=== PATIENT | male | born 1965 | race Caucasian/White ===

== ENCOUNTER 2016-12-26 17:50 | Inpatient (IN) | payer OTHER ==
[2016-12-26] MEDS ORDERED: NACL 0.9% 1000 ML 2,000 ML IV ONE (18:43)
--- NOTE | 2016-12-26 18:45 | Emergency Department Report ---
ED General Adult HPI - General Chief complaint: Abdominal Pain Stated complaint: GENERAL WEAKNESS Time Seen by Provider: 12/26/16 18:36 Source: patient, EMS (ems notes not available at time of chart dictation), RN notes reviewed Mode of arrival: Stretcher Limitations: Language Barrier, Altered Mental Status, Physical Limitation - History of Present Illness Initial comments: This is a 51-year-old male, the patient is previously known to me, history limited as there is no family members available, the patient is delirious, and is a poor historian. As per triage nurse documentation, [place], EMS indicates no history or family, history, and from other people "squatting", EMS indicates patient has been in bed for the past month, and has had nothing by mouth. Patient does indicate right-sided abdominal pain , however he cannot further A on the nature of this abdominal pain. Patient cannot describe exacerbating or relieving factors, or radiation. No additional information is available at this time. -: unknown Quality: other (as per history of present illness) Consistency: other (as per history of present illness) Improves with: other (as per history of present illness) Associated Symptoms: other (as per history of present illness) - Related Data Home Medications Medication Instructions Recorded Confirmed Last Taken No Known Home Medications [No 12/26/16 12/26/16 Unknown Reported Home Medications] Allergies Allergy/AdvReac Type Severity Reaction Status Date / Time No Known Allergies Allergy Unverified 12/26/16 18:23 ED Review of Systems ROS: Stated complaint: GENERAL WEAKNESS Other details as noted in HPI Comment: Unobtainable due to pts medical conditions ED Past Medical Hx - Past Medical History Hx Diabetes: Yes - Surgical History Additional Surgical History: unknown - Social History Smoking Status: Current Every Day Smoker Substance Use Type: None - Medications Home Medications: Home Medications Medication Instructions Recorded Confirmed Last Taken Type No Known Home Medications [No 12/26/16 12/26/16 Unknown History Reported Home Medications] ED Physical Exam - General Limitations: Language Barrier, Altered Mental Status, Physical Limitation General appearance: lethargic, in distress - Head Head exam: Present: atraumatic, normocephalic - Eye Eye exam: Present: normal appearance, EOMI - ENT ENT exam: Present: normal exam, normal orophraynx, mucous membranes moist, normal external ear exam - Neck Neck exam: Present: normal inspection, full ROM. Absent: tenderness, meningismus - Respiratory Respiratory exam: Present: normal lung sounds bilaterally. Absent: respiratory distress, rhonchi - Cardiovascular Cardiovascular Exam: Present: normal rhythm, tachycardia, normal heart sounds. Absent: systolic murmur, diastolic murmur, rubs, gallop - GI/Abdominal GI/Abdominal exam: Present: soft, tenderness, normal bowel sounds. Absent: distended, guarding, rebound, rigid, pulsatile mass - Rectal Rectal exam: Present: normal inspection - exam: Present: normal inspection - Extremities Exam Extremities exam: Present: normal inspection, normal capillary refill. Absent: calf tenderness - Back Exam Back exam: Present: normal inspection, full ROM. Absent: tenderness, CVA tenderness (R), CVA tenderness (L), muscle spasm, paraspinal tenderness, vertebral tenderness - Neurological Exam Neurological exam: Present: altered, other (patient moves 4 extremities. Answers some questions but not all questions) - Psychiatric Psychiatric exam: Present: anxious - Skin Skin exam: Present: warm, dry, intact, normal color. Absent: rash ED Course Vital Signs 12/26/16 12/26/16 12/26/16 18:16 18:21 18:23 Temperature 98.9 F Pulse Rate 99 H 99 H 100 H Respiratory 17 24 18 Rate Blood Pressure 123/78 Blood Pressure [Left] O2 Sat by Pulse 98 99 100 Oximetry 12/26/16 12/26/16 12/26/16 18:30 18:31 18:41 Temperature 100.3 F H Pulse Rate 100 H 100 H Respiratory 16 17 Rate Blood Pressure Blood Pressure [Left] O2 Sat by Pulse 99 97 Oximetry 12/26/16 12/26/16 12/26/16 18:51 19:01 19:11 Temperature Pulse Rate 99 H 101 H 104 H Respiratory 12 17 19 Rate Blood Pressure 132/80 Blood Pressure [Left] O2 Sat by Pulse 99 99 99 Oximetry 12/26/16 12/26/16 12/26/16 19:21 19:58 20:01 Temperature Pulse Rate 105 H 107 H 106 H Respiratory 13 21 20 Rate Blood Pressure 128/84 128/84 128/84 Blood Pressure [Left] O2 Sat by Pulse 99 Oximetry 12/26/16 12/26/16 12/26/16 20:11 20:15 20:21 Temperature Pulse Rate 105 H 106 H Respiratory 17 18 16 Rate Blood Pressure 128/84 128/84 Blood Pressure [Left] O2 Sat by Pulse 97 Oximetry 12/26/16 12/26/16 12/26/16 20:30 20:41 20:51 Temperature Pulse Rate 107 H 107 H 105 H Respiratory 20 19 16 Rate Blood Pressure 159/80 159/80 159/86 Blood Pressure [Left] O2 Sat by Pulse 100 100 100 Oximetry 12/26/16 12/26/16 12/26/16 21:00 21:11 21:21 Temperature Pulse Rate 104 H 103 H 101 H Respiratory 16 14 17 Rate Blood Pressure 160/76 160/76 160/76 Blood Pressure [Left] O2 Sat by Pulse 100 100 100 Oximetry 12/26/16 12/26/16 12/26/16 21:30 21:41 21:51 Temperature Pulse Rate 102 H 101 H 101 H Respiratory 21 13 15 Rate Blood Pressure 141/67 141/67 131/64 Blood Pressure [Left] O2 Sat by Pulse 100 100 100 Oximetry 12/26/16 12/26/16 12/26/16 22:00 22:11 22:21 Temperature Pulse Rate 105 H 104 H Respiratory 24 16 Rate Blood Pressure 146/65 146/65 152/66 Blood Pressure [Left] O2 Sat by Pulse 100 100 100 Oximetry 12/26/16 12/26/16 12/26/16 22:30 22:41 22:51 Temperature Pulse Rate 104 H 101 H 104 H Respiratory 16 18 17 Rate Blood Pressure 128/73 128/73 140/73 Blood Pressure [Left] O2 Sat by Pulse 99 99 99 Oximetry 12/26/16 12/26/16 12/26/16 23:00 23:11 23:21 Temperature 99.8 F H Pulse Rate 101 H 101 H 106 H Respiratory 20 18 11 L Rate Blood Pressure 141/73 141/73 125/70 Blood Pressure 146/73 [Left] O2 Sat by Pulse 100 100 100 Oximetry 12/26/16 12/26/16 12/26/16 23:30 23:41 23:51 Temperature Pulse Rate 102 H 103 H 100 H Respiratory 19 15 21 Rate Blood Pressure 138/75 138/75 146/73 Blood Pressure [Left] O2 Sat by Pulse 100 100 100 Oximetry 12/27/16 12/27/16 12/27/16 00:00 00:11 00:21 Temperature Pulse Rate 103 H 103 H 105 H Respiratory 13 13 12 Rate Blood Pressure 154/73 154/73 146/68 Blood Pressure [Left] O2 Sat by Pulse 99 98 Oximetry 12/27/16 12/27/16 12/27/16 00:30 00:45 00:46 Temperature 101.3 F H Pulse Rate 106 H 103 H Respiratory 15 20 20 Rate Blood Pressure 155/74 Blood Pressure 150/76 [Left] O2 Sat by Pulse 96 99 Oximetry 12/27/16 12/27/16 01:17 01:45 Temperature 102.2 F H Pulse Rate 106 H Respiratory 20 Rate Blood Pressure 181/86 Blood Pressure [Left] O2 Sat by Pulse 99 Oximetry - Reevaluation(s) Reevaluation #1: 12/26/16 21:57 Dr. Shearer, the hospital physician, accepts the patient to her service. ED Medical Decision Making - Lab Data Result diagrams: 12/28/16 03:49 12/28/16 03:49 Vital Signs 12/26/16 18:23 Temperature 98.9 F Pulse Rate 100 H Respiratory 18 Rate Blood Pressure 123/78 O2 Sat by Pulse 100 Oximetry Lab Results 12/26/16 12/26/16 12/26/16 Range/Units 18:45 18:45 18:45 WBC 12.5 H (4.5-11.0) K/mm3 RBC 3.99 (3.65-5.03) M/mm3 Hgb 10.2 L (11.8-15.2) gm/dl Hct 30.7 L (35.5-45.6) % MCV 77 L (84-94) fl MCH 26 L (28-32) pg MCHC 33 (32-34) % RDW 16.1 H (13.2-15.2) % Plt Count 387 (140-440) K/mm3 Add Manual Diff Complete Total Counted 100 Seg Neuts % (Manual) 82.0 H (40.0-70.0) % Band Neutrophils % 0 % Lymphocytes % (Manual) 13.0 L (13.4-35.0) % Reactive Lymphs % (Man) 0 % Monocytes % (Manual) 3.0 (0.0-7.3) % Eosinophils % (Manual) 0 (0.0-4.3) % Basophils % (Manual) 0 (0.0-1.8) % Metamyelocytes % 2.0 % Myelocytes % 0 % Promyelocytes % 0 % Blast Cells % 0 % Nucleated RBC % Not Reportable Seg Neutrophils # Man 10.3 H (1.8-7.7) K/mm3 Band Neutrophils # 0.0 K/mm3 Lymphocytes # (Manual) 1.6 (1.2-5.4) K/mm3 Abs React Lymphs (Man) 0.0 K/mm3 Monocytes # (Manual) 0.4 (0.0-0.8) K/mm3 Eosinophils # (Manual) 0.0 (0.0-0.4) K/mm3 Basophils # (Manual) 0.0 (0.0-0.1) K/mm3 Metamyelocytes # 0.3 K/mm3 Myelocytes # 0.0 K/mm3 Promyelocytes # 0.0 K/mm3 Blast Cells # 0.0 K/mm3 WBC Morphology Not Reportable Hypersegmented Neuts Not Reportable Hyposegmented Neuts Not Reportable Hypogranular Neuts Not Reportable Smudge Cells Not Reportable Toxic Granulation Not Reportable Toxic Vacuolation Not Reportable Dohle Bodies Not Reportable Pelger-Huet Anomaly Not Reportable [place] Rods Not Reportable Platelet Estimate Appears normal Clumped Platelets Not Reportable Plt Clumps, EDTA Not Reportable Large Platelets Not Reportable Giant Platelets Not Reportable Platelet Satelliting Not Reportable Plt Morphology Comment Not Reportable RBC Morphology Not Reportable Dimorphic RBCs Not Reportable Polychromasia Not Reportable Hypochromasia 1+ Poikilocytosis Not Reportable Anisocytosis 1+ Microcytosis Not Reportable Macrocytosis Not Reportable Spherocytes Not Reportable Pappenheimer Bodies Not Reportable Sickle Cells Not Reportable Target Cells Not Reportable Tear Drop Cells Not Reportable Ovalocytes Not Reportable Helmet Cells Not Reportable [place] Bodies Not Reportable Joice Rings Not Reportable [place] Cells Not Reportable Bite Cells Not Reportable Crenated Cell Not Reportable Elliptocytes Not Reportable Acanthocytes (Spur) Not Reportable Rouleaux Not Reportable Hemoglobin C Crystals Not Reportable Schistocytes Not Reportable Malaria parasites Not Reportable Kyle Bodies Not Reportable Hem Pathologist Commnt No Sodium 121 L (137-145) mmol/L Potassium 4.6 (3.6-5.0) mmol/L Chloride 80.1 L (98-107) mmol/L Carbon Dioxide 23 (22-30) mmol/L Anion Gap 23 mmol/L BUN 44 H (9-20) mg/dL Creatinine 1.7 H (0.8-1.5) mg/dL Estimated GFR 42 ml/min BUN/Creatinine Ratio 25.88 % Glucose 298 H (75-100) mg/dL Lactic Acid (0.7-2.0) mmol/L Calcium 8.6 (8.4-10.2) mg/dL Total Bilirubin 0.60 (0.1-1.2) mg/dL AST 54 H (5-40) units/L ALT 30 (7-56) units/L Alkaline Phosphatase 208 H (35-129) units/L Total Creatine Kinase (55-170) units/L Troponin T 0.014 (0.00-0.029) ng/mL Total Protein 9.6 H (6.3-8.2) g/dL Albumin 3.2 L (3.9-5) g/dL Albumin/Globulin Ratio 0.5 % Lipase 15 (13-60) units/L Urine Color (Yellow) Urine Turbidity (Clear) Urine pH (5.0-7.0) Ur Specific [place] (1.003-1.030) Urine Protein (Negative) mg/dL Urine Glucose (UA) (Negative) mg/dL Urine Ketones (Negative) mg/dL Urine Blood (Negative) Urine Nitrite (Negative) Urine Bilirubin (Negative) Urine Urobilinogen (<2.0) mg/dL Ur Leukocyte Esterase (Negative) Urine WBC (Auto) (0.0-6.0) /HPF Urine RBC (Auto) (0.0-6.0) /HPF Urine Bacteria (Auto) (Negative) /HPF Urine WBC Clumps /HPF Urine Mucus /HPF Salicylates (2.8-20.0) mg/dL Acetaminophen (10.0-30.0) ug/mL 12/26/16 12/26/16 12/26/16 Range/Units 18:45 18:53 18:53 WBC (4.5-11.0) K/mm3 RBC (3.65-5.03) M/mm3 Hgb (11.8-15.2) gm/dl Hct (35.5-45.6) % MCV (84-94) fl MCH (28-32) pg MCHC (32-34) % RDW (13.2-15.2) % Plt Count (140-440) K/mm3 Add Manual Diff Total Counted Seg Neuts % (Manual) (40.0-70.0) % Band Neutrophils % % Lymphocytes % (Manual) (13.4-35.0) % Reactive Lymphs % (Man) % Monocytes % (Manual) (0.0-7.3) % Eosinophils % (Manual) (0.0-4.3) % Basophils % (Manual) (0.0-1.8) % Metamyelocytes % % Myelocytes % % Promyelocytes % % Blast Cells % % Nucleated RBC % Seg Neutrophils # Man (1.8-7.7) K/mm3 Band Neutrophils # K/mm3 Lymphocytes # (Manual) (1.2-5.4) K/mm3 Abs React Lymphs (Man) K/mm3 Monocytes # (Manual) (0.0-0.8) K/mm3 Eosinophils # (Manual) (0.0-0.4) K/mm3 Basophils # (Manual) (0.0-0.1) K/mm3 Metamyelocytes # K/mm3 Myelocytes # K/mm3 Promyelocytes # K/mm3 Blast Cells # K/mm3 WBC Morphology Hypersegmented Neuts Hyposegmented Neuts Hypogranular Neuts Smudge Cells Toxic Granulation Toxic Vacuolation Dohle Bodies Pelger-Huet Anomaly [place] Rods Platelet Estimate Clumped Platelets Plt Clumps, EDTA Large Platelets Giant Platelets Platelet Satelliting Plt Morphology Comment RBC Morphology Dimorphic RBCs Polychromasia Hypochromasia Poikilocytosis Anisocytosis Microcytosis Macrocytosis Spherocytes Pappenheimer Bodies Sickle Cells Target Cells Tear Drop Cells Ovalocytes Helmet Cells [place] Bodies Joice Rings Jessica Cells Bite Cells Crenated Cell Elliptocytes Acanthocytes (Spur) Rouleaux Hemoglobin C Crystals Schistocytes Malaria parasites Kyle Bodies Hem Pathologist Commnt Sodium (137-145) mmol/L Potassium (3.6-5.0) mmol/L Chloride (98-107) mmol/L Carbon Dioxide (22-30) mmol/L Anion Gap mmol/L BUN (9-20) mg/dL Creatinine (0.8-1.5) mg/dL Estimated GFR ml/min BUN/Creatinine Ratio % Glucose (75-100) mg/dL Lactic Acid (0.7-2.0) mmol/L Calcium (8.4-10.2) mg/dL Total Bilirubin (0.1-1.2) mg/dL AST (5-40) units/L ALT (7-56) units/L Alkaline Phosphatase (35-129) units/L Total Creatine Kinase 67 (55-170) units/L Troponin T (0.00-0.029) ng/mL Total Protein (6.3-8.2) g/dL Albumin (3.9-5) g/dL Albumin/Globulin Ratio % Lipase (13-60) units/L Urine Color (Yellow) Urine Turbidity (Clear) Urine pH (5.0-7.0) Ur Specific [place] (1.003-1.030) Urine Protein (Negative) mg/dL Urine Glucose (UA) (Negative) mg/dL Urine Ketones (Negative) mg/dL Urine Blood (Negative) Urine Nitrite (Negative) Urine Bilirubin (Negative) Urine Urobilinogen (<2.0) mg/dL Ur Leukocyte Esterase (Negative) Urine WBC (Auto) (0.0-6.0) /HPF Urine RBC (Auto) (0.0-6.0) /HPF Urine Bacteria (Auto) (Negative) /HPF Urine WBC Clumps /HPF Urine Mucus /HPF Salicylates < 0.3 L (2.8-20.0) mg/dL Acetaminophen < 15.0 (10.0-30.0) ug/mL 12/26/16 12/26/16 Range/Units 18:53 20:20 WBC (4.5-11.0) K/mm3 RBC (3.65-5.03) M/mm3 Hgb (11.8-15.2) gm/dl Hct (35.5-45.6) % MCV (84-94) fl MCH (28-32) pg MCHC (32-34) % RDW (13.2-15.2) % Plt Count (140-440) K/mm3 Add Manual Diff Total Counted Seg Neuts % (Manual) (40.0-70.0) % Band Neutrophils % % Lymphocytes % (Manual) (13.4-35.0) % Reactive Lymphs % (Man) % Monocytes % (Manual) (0.0-7.3) % Eosinophils % (Manual) (0.0-4.3) % Basophils % (Manual) (0.0-1.8) % Metamyelocytes % % Myelocytes % % Promyelocytes % % Blast Cells % % Nucleated RBC % Seg Neutrophils # Man (1.8-7.7) K/mm3 Band Neutrophils # K/mm3 Lymphocytes # (Manual) (1.2-5.4) K/mm3 Abs React Lymphs (Man) K/mm3 Monocytes # (Manual) (0.0-0.8) K/mm3 Eosinophils # (Manual) (0.0-0.4) K/mm3 Basophils # (Manual) (0.0-0.1) K/mm3 Metamyelocytes # K/mm3 Myelocytes # K/mm3 Promyelocytes # K/mm3 Blast Cells # K/mm3 WBC Morphology Hypersegmented Neuts Hyposegmented Neuts Hypogranular Neuts Smudge Cells Toxic Granulation Toxic Vacuolation Dohle Bodies Pelger-Huet Anomaly [place] Rods Platelet Estimate Clumped Platelets Plt Clumps, EDTA Large Platelets Giant Platelets Platelet Satelliting Plt Morphology Comment RBC Morphology Dimorphic RBCs Polychromasia Hypochromasia Poikilocytosis Anisocytosis Microcytosis Macrocytosis Spherocytes Pappenheimer Bodies Sickle Cells Target Cells Tear Drop Cells Ovalocytes Helmet Cells [place] Bodies Joice Rings Jessica Cells Bite Cells Crenated Cell Elliptocytes Acanthocytes (Spur) Rouleaux Hemoglobin C Crystals Schistocytes Malaria parasites Kyle Bodies Hem Pathologist Commnt Sodium (137-145) mmol/L Potassium (3.6-5.0) mmol/L Chloride (98-107) mmol/L Carbon Dioxide (22-30) mmol/L Anion Gap mmol/L BUN (9-20) mg/dL Creatinine (0.8-1.5) mg/dL Estimated GFR ml/min BUN/Creatinine Ratio % Glucose (75-100) mg/dL Lactic Acid 1.60 (0.7-2.0) mmol/L Calcium (8.4-10.2) mg/dL Total Bilirubin (0.1-1.2) mg/dL AST (5-40) units/L ALT (7-56) units/L Alkaline Phosphatase (35-129) units/L Total Creatine Kinase (55-170) units/L Troponin T (0.00-0.029) ng/mL Total Protein (6.3-8.2) g/dL Albumin (3.9-5) g/dL Albumin/Globulin Ratio % Lipase (13-60) units/L Urine Color Yellow (Yellow) Urine Turbidity Cloudy (Clear) Urine pH 5.0 (5.0-7.0) Ur Specific [place] 1.011 (1.003-1.030) Urine Protein 100 mg/dl (Negative) mg/dL Urine Glucose (UA) >=500 (Negative) mg/dL Urine Ketones Tr (Negative) mg/dL Urine Blood Mod (Negative) Urine Nitrite Neg (Negative) Urine Bilirubin Neg (Negative) Urine Urobilinogen < 2.0 (<2.0) mg/dL Ur Leukocyte Esterase Lg (Negative) Urine WBC (Auto) > 182.0 H (0.0-6.0) /HPF Urine RBC (Auto) 3.0 (0.0-6.0) /HPF Urine Bacteria (Auto) 4+ (Negative) /HPF Urine WBC Clumps 3+ /HPF Urine Mucus Few /HPF Salicylates (2.8-20.0) mg/dL Acetaminophen (10.0-30.0) ug/mL - EKG Data -: EKG Interpreted by Az Rate: tachycardia - EKG Data When compared to previous EKG there are: previous EKG unavailable 12/26/16 21:47 Sinus tachycardia, 105 bpm, normal axis, QTC 473 ms, high left ventricular voltage, abnormal EKG. - Radiology Data Radiology results: report reviewed, image reviewed X-ray the chest is negative. Noncontrast CT scan of the brain and cervical spine are negative. CT scan of the abdomen and pelvis demonstrates a right sided pneumothorax, posterior lung, right-sided emphysematous pyelonephritis. - Medical Decision Making Differential diagnosis: Pneumonia, urinary tract infection, intracranial injury , cervical spine injury, intra-abdominal infection Assessment and plan: 51-year-old male with delirium, systemic inflammatory response syndrome, found to have incidental and asymptomatic right-sided posterior pneumothorax, and emphysematous pyelonephritis. Along with renal insufficiency and hypovolemic hyponatremia. Case discussed with urology, Dr. Kuhn, recommend medical management, and indicates that urology can follow if medical team specifically requested. He does recommend an infectious disease consult, but I would defer to the inpatient team to acquire this. The pneumothorax and clinical presentation along with vital signs are also discussed with the intensive care physician on-call, Dr. Horta, and he does not feel the patient requires stress and to the ICU, as the patient does not require ventilatory support or vasopressor support. He suggests, and I agree, that the pneumothorax is mostly chronic, posterior and asymptomatic, he does not recommend a Heimlich valve chest tube at this time, he recommends 4 L of oxygen nasal cannula, and a stat chest x-ray for change in respiratory status, vital signs and/or hemodynamics. He agrees to follow in consultation. The Hospital physician has been paged, we are waiting to discuss to arrange management. Patient will be treated empirically with ceftriaxone, IV fluids, and flagyl Critical care attestation.: If time is entered above; I have spent that time in minutes in the direct care of this critically ill patient, excluding procedure time. ED Disposition Clinical Impression: SIRS (systemic inflammatory response syndrome), Hyponatremia, Renal insufficiency Disposition: OP ADMIT IP TO THIS HOSP Is pt being admited?: Yes Condition: Fair
[2016-12-26 19:12] LABS: Hematocrit 30.7 % (35.5-45.6); Hemoglobin 10.2 gm/dl (11.8-15.2); Mean Corpuscular HGB Conc 33 % (32-34); Mean Corpuscular Volume 77 fl (84-94); Platelet Count 387 K/mm3 (140-440); Red Blood Count 3.99 M/mm3 (3.65-5.03); Red Cell Distribution Width 16.1 % (13.2-15.2); White Blood Count 12.5 K/mm3 (4.5-11.0)
[2016-12-26 19:21] LABS: Albumin 3.2 g/dL (3.9-5); Albumin/Globulin Ratio 0.5 %; BUN/Creatinine Ratio 25.88; Bilirubin,Total 0.6 mg/dL (0.1-1.2); Calcium 8.6 mg/dL (8.4-10.2); Chloride 80.1 mmol/L (98-107); Mean Corpuscular Hemoglobin 26 pg (28-32); Potassium 4.6 mmol/L (3.6-5.0); Total Protein 9.6 g/dL (6.3-8.2)
--- NOTE | 2016-12-26 19:40 | XRay Report ---
FINAL REPORT EXAM: XR CHEST 1V AP HISTORY: weakness sepsis TECHNIQUE: AP portable view of the chest. PRIORS: None. FINDINGS: There is atherosclerosis in the thoracic aorta. Otherwise the cardiomediastinal silhouette appears normal. The lungs are clear. The bones and soft tissues are unremarkable. IMPRESSION: No evidence of acute cardiopulmonary disease.
[2016-12-26] MEDS ORDERED: ROCEPHIN/NS 1 GM/50 ML 1 GM/50 ML BAG IV ONE (19:42)
[2016-12-26 20:02] LABS: Basophils % (Manual) 0 % (0.0-1.8); Blastocytes % (Manual) 0 %; Eosinophils % (Manual) 0 % (0.0-4.3)
[2016-12-26 20:03] LABS: Anisocytosis 1+; Hypochromasia 1+
[2016-12-26 20:04] LABS: Diff Status Complete
--- NOTE | 2016-12-26 20:06 | Cat Scan Report ---
FINAL REPORT PROCEDURE: CT HEAD/BRAIN WO CON TECHNIQUE: Computerized tomography of the head was performed without contrast material. HISTORY: ams COMPARISON: No prior studies are available for comparison. FINDINGS: Brain: There is no evidence of intracranial hemorrhage. No parenchymal hemorrhage is seen. No mass lesions or mass effect is identified. No abnormal extra-axial fluid collections or masses are seen. Nonspecific mineralization of the basal ganglia are visualized. There is some decreased density seen in the periventricular white matter without mass effect. This is fairly symmetric and does not exhibit any mass effect consistent with gliosis probably on the basis of microvascular disease or white matter changes of aging. Ventricles: The ventricles are normal size and are midline. The sulcal pattern and fissures are prominent suggesting mild atrophy. Bones: No evidence of acute fracture. Paranasal sinuses: Moderate mucosal thickening seen in the sphenoid sinuses. There is mild patchy mucosal disease in a few of the anterior ethmoid air cells. Mastoid air cells: clear IMPRESSION: Mild atrophy. Mild paranasal sinus disease as described. No other abnormalities are identified.
--- NOTE | 2016-12-26 20:19 | Cat Scan Report ---
FINAL REPORT PROCEDURE: CT ABDOMEN PELVIS WO CON TECHNIQUE: Computerized axial tomography of the abdomen and pelvis was performed without intravenous contrast. This study is performed without intravascular contrast material and its sensitivity for abdominal and pelvic pathology, including neoplasms, inflammation, abscess, free fluid, thrombosis, arterial dissection and infarction, is reduced compared with a contrast enhanced study. HISTORY: abd pain COMPARISON: No prior studies are available for comparison. FINDINGS: Lower Lung [place]: Moderate-sized right pneumothorax partially visualized. There appears to be some atelectasis in both bases left side greater than right. No effusions are identified. Calcifications are seen in the coronary arteries indicating atherosclerotic disease. Upper Abdomen: Small calcified gallstones are seen lying dependently in the gallbladder. Gallbladder is otherwise unremarkable., The liver, the adrenal glands are unremarkable. The spleen contains a few small calcified granulomas otherwise is unremarkable. Numerous coarse and punctate calcifications are seen in the pancreatic head suggesting chronic pancreatitis. Kidneys, Ureters and Urinary bladder: There are multiple bubbles of gas seen in the collecting system of the right kidney. There also some gas seen in the urinary bladder. The gas in the right kidney may reflect infection with gas-forming organism or could be an artifact from gas in the urinary bladder extending superiorly into the collecting system. Correlation with recent catheterization history strongly recommended. No hydronephrosis visualized. Arterial calcifications seen involving the abdominal viscera and renal arteries. No definite renal calculi are visualized. No ureteral calculi are seen. Retroperitoneum: Atherosclerotic changes are seen in the abdominal aorta. No aneurysm is visualized. Nonspecific subcentimeter lymph nodes are seen in the retroperitoneum. No pathologically enlarged lymph nodes are identified. Bowel: Postsurgical changes appear to be present in the right side of the colon. An enteric suture line is visualized. There is however also additional irregular wall thickening seen in the right side of the colon and subtle areas of increased density within the [place] of the colon. I cannot exclude faint calcifications. A mass in the right side of the colon is not excluded. I do not see evidence of bowel obstruction. Reproductive organs: There is nonspecific diffuse prostate enlargement. Other: None IMPRESSION: Moderate size right pneumothorax partially visualized. Chest x-ray recommended for further evaluation. Cholelithiasis. Calcifications seen in the pancreatic head as described suggesting chronic pancreatitis. Gas bubbles visualized in the right renal collecting system as described above. Please see above comments. I cannot exclude infection within the right kidney with gas-forming organism. This could be an artifact from gas entering the urinary bladder from recent catheterization extending through the right ureter. Postsurgical changes right side of the colon. There is however wall thickening and subtle increased density within the colon at the site of the surgery. I cannot exclude calcifications within the wall thickening. Malignancy cannot be excluded. There is nonspecific diffuse prostate enlargement.. These findings were discussed in detail with Leyla Mcfadden RN on 12/26/2016 at 8:15 p.m. Eastern standard time. Critical value:
--- NOTE | 2016-12-26 20:20 | Cat Scan Report ---
FINAL REPORT EXAM: CT CERVICAL SPINE WO CON HISTORY: ams TECHNIQUE: Helical axial CT imaging of the cervical spine. Images are reconstructed in the sagittal and coronal planes. PRIORS: None. FINDINGS: The vertebral bodies are normal in height. There is no evidence of fracture or subluxation. There is multilevel degenerative disc and facet disease. There is atherosclerotic calcification in the carotid bulbs. The paraspinous soft tissues are unremarkable. IMPRESSION: No evidence of acute fracture or subluxation.
[2016-12-26] MEDS ORDERED: XYLOCAINE 2%/EPI 1:100,000 INFILTRATI ONE (20:28)
[2016-12-26] MEDS ORDERED: KETALAR IV ONE ×2 (20:28→21:00)
[2016-12-26] MEDS ORDERED: TYLENOL PR ONE ×2 (20:58→22:50)
[2016-12-26] MEDS ORDERED: FLAGYL 500 MG/100 ML 500 MG/100 ML BAG IV SCH (21:00)
[2016-12-26 21:07] LABS: Bacteria,Urine 4+ /HPF (Negative); Bilirubin,Urine NEG (Negative); Blood,Urine MOD (Negative); Ketones,Urine TR mg/dL (Negative); Leukocyte Esterase,Urine LG (Negative); Mucus,Urine FEW /HPF; Nitrite,Urine NEG (Negative); Urobilinogen,Urine < 2.0 mg/dL (<2.0)
[2016-12-26 21:08] LABS: WBC,Urine > 182.0 /HPF (0.0-6.0)
[2016-12-26] MEDS ORDERED: FLAGYL PO ONE (21:38)
[2016-12-26] MEDS ORDERED: MILK OF MAGNESIA PO PRN (23:12)
[2016-12-26] MEDS ORDERED: ZOFRAN IV PRN (23:12)
[2016-12-26] MEDS ORDERED: DULCOLAX PR PRN (23:12)
--- NOTE | 2016-12-26 23:14 | History and Physical Report ---
History of Present Illness Date of examination: 12/26/16 History of present illness: 51-year-old man with a history of hypertension comes to the emergency room with complaints of weakness, altered mental status. She stated he sustained a fall yesterday. Complains of pain on the right side which she described as a sharp, intermittent in nature lasting 10 minutes, intensity 7/10, he cannot identify exacerbating or relieving factors. State he has not eaten in the last 3 days, admits to dysuria Review Of Systems: Constitutional: no weight loss Ears, eyes, nose, mouth and throat: no nasal congestion, no nasal discharge, no sinus pressure, blurry vision, diplopia Neck: No neck pain or rigidity. Cardiovascular: chest pain, orthopnea, palpitations Respiratory: No shortness of breath, cough Gastrointestinal: abdominal pain, hematochezia Genitourinary : no frequency , hematuria Musculoskeletal: no muscle ache Integumentary: no rash, no pruritis Neurological: no parathesias, focal weakness Endocrine: no cold or heat intolerance, no polyuria or polydipsia Hematologic/Lymphatic: no easy bruising, no easy bleeding, no gland swelling Allergic/Immunologic: no urticaria, no angioedema. PAST MEDICAL HISTORY:hypertension, chronic kidney disease PAST SURGICAL HISTORY: Abdominal surgery, left great toe amputation FAMILY HISTORY:hypertension SOCIAL HISTORY: Denies alcohol, tobacco, drugs Medications and Allergies Allergies Allergy/AdvReac Type Severity Reaction Status Date / Time No Known Allergies Allergy Unverified 12/26/16 18:23 Home Medications Medication Instructions Recorded Confirmed Last Taken Type Ciprofloxacin HCl [Ciprofloxacin 750 mg PO BID #28 tablet 01/02/17 Unknown Rx TAB] Insulin Detemir [Levemir] 12 units SUB-Q QHS #30 units 01/02/17 Unknown Rx Labetalol [Normodyne TAB] 200 mg PO BID #60 tablet 01/02/17 Unknown Rx oxyCODONE /ACETAMINOPHEN [Percocet 1 tab PO Q4HR #20 tab 01/02/17 Unknown Rx 5/325] Exam - Physical Exam Narrative exam: Gen. appearance: Patient lying in bed in no acute distress HEENT: Normocephalic/atraumatic, pupils equal round reactive to light, extra alkaline movement intact, no scleral icterus, no JVD or thyromegaly or nodule, neck is supple, mucous membrane moist, no erythema or exudate Heart: S1-S2, regular rate and rhythm Lungs: Clear to auscultation bilateral breathing comfortable Abdomen: Positive bowel sounds, nontender, nondistended, no organomegaly Extremities: No edema, cyanosis, clubbing Neuro:: Oriented 3 , cranial nerves II-12 intact, speech, motor intact Skin: No rash, nodules, warm dry - Constitutional Vitals: Temp Pulse Resp BP Pulse Ox 100.3 F H 100 H 18 123/78 100 12/26/16 18:30 12/26/16 18:23 12/26/16 20:15 12/26/16 18:23 12/26/16 18:23 Results - Labs CBC & Chem 7: 01/02/17 04:25 01/02/17 08:25 Labs: Abnormal lab results 12/26/16 12/26/16 12/26/16 Range/Units 18:25 18:45 18:45 WBC 12.5 H (4.5-11.0) K/mm3 Hgb 10.2 L (11.8-15.2) gm/dl Hct 30.7 L (35.5-45.6) % MCV 77 L (84-94) fl MCH 26 L (28-32) pg RDW 16.1 H (13.2-15.2) % Seg Neuts % (Manual) 82.0 H (40.0-70.0) % Lymphocytes % (Manual) 13.0 L (13.4-35.0) % Seg Neutrophils # Man 10.3 H (1.8-7.7) K/mm3 Sodium 121 L (137-145) mmol/L Chloride 80.1 L (98-107) mmol/L BUN 44 H (9-20) mg/dL Creatinine 1.7 H (0.8-1.5) mg/dL Glucose 298 H (75-100) mg/dL POC Glucose 332 H (70-105) AST 54 H (5-40) units/L Alkaline Phosphatase 208 H (35-129) units/L Total Protein 9.6 H (6.3-8.2) g/dL Albumin 3.2 L (3.9-5) g/dL Urine WBC (Auto) (0.0-6.0) /HPF Salicylates (2.8-20.0) mg/dL 12/26/16 12/26/16 Range/Units 18:53 20:20 WBC (4.5-11.0) K/mm3 Hgb (11.8-15.2) gm/dl Hct (35.5-45.6) % MCV (84-94) fl MCH (28-32) pg RDW (13.2-15.2) % Seg Neuts % (Manual) (40.0-70.0) % Lymphocytes % (Manual) (13.4-35.0) % Seg Neutrophils # Man (1.8-7.7) K/mm3 Sodium (137-145) mmol/L Chloride (98-107) mmol/L BUN (9-20) mg/dL Creatinine (0.8-1.5) mg/dL Glucose (75-100) mg/dL POC Glucose (70-105) AST (5-40) units/L Alkaline Phosphatase (35-129) units/L Total Protein (6.3-8.2) g/dL Albumin (3.9-5) g/dL Urine WBC (Auto) > 182.0 H (0.0-6.0) /HPF Salicylates < 0.3 L (2.8-20.0) mg/dL - Imaging and Cardiology CT scan - abdomen: report reviewed CT Scan - head: report reviewed CT scan - pelvis: report reviewed Assessment and Plan CT cervical spine reviewed Assessment Sepsis emphysematous pyelonephritis Pneumothorax, ? Acute Acute renal failure Hyponatremia Diabetes type 2 Hypertension Plan Admit to medicine Start IV fluids, IV Zosyn, follow cultures Consult urology, pulmonary Check fingersticks and Initiate insulin sliding scale DVT prophylaxis
[2016-12-27] MEDS ORDERED: TYLENOL ONE (00:44)
[2016-12-27] MEDS: TYLENOL PO PRN (00:45)
[2016-12-27 05:19] LABS: Basophils % (Auto) 0.3 % (0.0-1.8); Eosinophils % (Auto) 0.2 % (0.0-4.3); Hematocrit 27.1 % (35.5-45.6); Hemoglobin 9.2 gm/dl (11.8-15.2); Mean Corpuscular HGB Conc 34 % (32-34); Mean Corpuscular Volume 76 fl (84-94); Platelet Count 332 K/mm3 (140-440); Red Blood Count 3.57 M/mm3 (3.65-5.03); Red Cell Distribution Width 16.1 % (13.2-15.2); White Blood Count 9.1 K/mm3 (4.5-11.0)
[2016-12-27 05:20] LABS: Mean Corpuscular Hemoglobin 26 pg (28-32)
[2016-12-27 05:39] LABS: BUN/Creatinine Ratio 24.28; Calcium 8.2 mg/dL (8.4-10.2); Chloride 89.8 mmol/L (98-107); Potassium 4.1 mmol/L (3.6-5.0)
[2016-12-27] MEDS ORDERED: ZOSYN/NS 2.25 GM/50ML 2.25 GM/50 ML BAG IV SCH (06:00)
[2016-12-27] MEDS ORDERED: ZOSYN/NS 3.375GM/50ML 3.375 GM/50 ML BAG IV SCH (06:00)
[2016-12-27] MEDS ORDERED: NACL 0.9% 1000 ML 1,000 ML IV SCH (07:00)
[2016-12-27] MEDS ORDERED: LOVENOX SUB-Q SCH (10:00)
[2016-12-27] MEDS: NOVOLOG SUB-Q SCH ×3 (12:28→22:15)
--- NOTE | 2016-12-27 14:01 | Progress Note ---
Assessment and Plan Assessment and plan: Emphysematous pyelonephritis, sepsis - Patient was given IV ceftriaxone and metronidazole in the emergency department and currently he is on Zosyn - Patient is on IV fluids and pain management - I have communicated with Dr Call and said continue with IV antibiotics and if the condition getting worse he wanted to be notified Diabetes mellitus with hyperglycemia -Patient is on high-dose sliding scale insulin -Accu-Chek and will adjust insulin as needed Hypertension - On when necessary hydralazine DVT prophylaxis - Lovenox Disposition - Continue inpatient care History Interval history: Patient was seen and evaluated this morning, he is complaining of right-sided abdominal pain. And had fever episodes overnight. patient is divehi speaker. Hospitalist Physical - Physical exam Narrative exam: Not in cardiopulmonary distress. The patient appeared well nourished and normally developed. Vital signs as documented. Head exam is unremarkable. No scleral icterus . Neck is without jugular venous distension, thyromegaly, or carotid bruits. Lungs are clear to auscultation. Cardiac exam reveals regular rate and Rhythm. First and second heart sounds normal. No murmurs, rubs or gallops. Abdominal exam reveals right flank tenderness, but no guarding or rigidity. Extremities are nonedematous and both femoral and pedal pulses are normal. VP GENETIC: Alert . No focal weakness. - Constitutional Vitals: Temp Pulse Resp BP Pulse Ox 99.0 F 101 H 20 167/89 99 12/27/16 07:47 12/27/16 07:47 12/27/16 07:47 12/27/16 07:46 12/27/16 07:47 Results - Labs CBC & Chem 7: 12/27/16 04:40 12/27/16 04:40 Labs: Laboratory Last Values WBC 9.1 K/mm3 (4.5-11.0) 12/27/16 04:40 RBC 3.57 M/mm3 (3.65-5.03) L 12/27/16 04:40 Hgb 9.2 gm/dl (11.8-15.2) L 12/27/16 04:40 Hct 27.1 % (35.5-45.6) L 12/27/16 04:40 MCV 76 fl (84-94) L 12/27/16 04:40 MCH 26 pg (28-32) L 12/27/16 04:40 MCHC 34 % (32-34) 12/27/16 04:40 RDW 16.1 % (13.2-15.2) H 12/27/16 04:40 Plt Count 332 K/mm3 (140-440) 12/27/16 04:40 Lymph % (Auto) 16.5 % (13.4-35.0) 12/27/16 04:40 [place] % (Auto) 9.6 % (0.0-7.3) H 12/27/16 04:40 Eos % (Auto) 0.2 % (0.0-4.3) 12/27/16 04:40 Baso % (Auto) 0.3 % (0.0-1.8) 12/27/16 04:40 Lymph # 1.5 K/mm3 (1.2-5.4) 12/27/16 04:40 [place] # 0.9 K/mm3 (0.0-0.8) H 12/27/16 04:40 Eos # 0.0 K/mm3 (0.0-0.4) 12/27/16 04:40 Baso # 0.0 K/mm3 (0.0-0.1) 12/27/16 04:40 Add Manual Diff Complete 12/26/16 18:45 Total Counted 100 12/26/16 18:45 Seg Neutrophils % 73.4 % (40.0-70.0) H 12/27/16 04:40 Seg Neuts % (Manual) 82.0 % (40.0-70.0) H 12/26/16 18:45 Band Neutrophils % 0 % 12/26/16 18:45 Lymphocytes % (Manual) 13.0 % (13.4-35.0) L 12/26/16 18:45 Reactive Lymphs % (Man) 0 % 12/26/16 18:45 Monocytes % (Manual) 3.0 % (0.0-7.3) 12/26/16 18:45 Eosinophils % (Manual) 0 % (0.0-4.3) 12/26/16 18:45 Basophils % (Manual) 0 % (0.0-1.8) 12/26/16 18:45 Metamyelocytes % 2.0 % 12/26/16 18:45 Myelocytes % 0 % 12/26/16 18:45 Promyelocytes % 0 % 12/26/16 18:45 Blast Cells % 0 % 12/26/16 18:45 Nucleated RBC % Not Reportable 12/26/16 18:45 Seg Neutrophils # 6.7 K/mm3 (1.8-7.7) 12/27/16 04:40 Seg Neutrophils # Man 10.3 K/mm3 (1.8-7.7) H 12/26/16 18:45 Band Neutrophils # 0.0 K/mm3 12/26/16 18:45 Lymphocytes # (Manual) 1.6 K/mm3 (1.2-5.4) 12/26/16 18:45 Abs React Lymphs (Man) 0.0 K/mm3 12/26/16 18:45 Monocytes # (Manual) 0.4 K/mm3 (0.0-0.8) 12/26/16 18:45 Eosinophils # (Manual) 0.0 K/mm3 (0.0-0.4) 12/26/16 18:45 Basophils # (Manual) 0.0 K/mm3 (0.0-0.1) 12/26/16 18:45 Metamyelocytes # 0.3 K/mm3 12/26/16 18:45 Myelocytes # 0.0 K/mm3 12/26/16 18:45 Promyelocytes # 0.0 K/mm3 12/26/16 18:45 Blast Cells # 0.0 K/mm3 12/26/16 18:45 WBC Morphology Not Reportable 12/26/16 18:45 Hypersegmented Neuts Not Reportable 12/26/16 18:45 Hyposegmented Neuts Not Reportable 12/26/16 18:45 Hypogranular Neuts Not Reportable 12/26/16 18:45 Smudge Cells Not Reportable 12/26/16 18:45 Toxic Granulation Not Reportable 12/26/16 18:45 Toxic Vacuolation Not Reportable 12/26/16 18:45 Dohle Bodies Not Reportable 12/26/16 18:45 Pelger-Huet Anomaly Not Reportable 12/26/16 18:45 Shelby Rods Not Reportable 12/26/16 18:45 Platelet Estimate Appears normal 12/26/16 18:45 Clumped Platelets Not Reportable 12/26/16 18:45 Plt Clumps, EDTA Not Reportable 12/26/16 18:45 Large Platelets Not Reportable 12/26/16 18:45 Giant Platelets Not Reportable 12/26/16 18:45 Platelet Satelliting Not Reportable 12/26/16 18:45 Plt Morphology Comment Not Reportable 12/26/16 18:45 RBC Morphology Not Reportable 12/26/16 18:45 Dimorphic RBCs Not Reportable 12/26/16 18:45 Polychromasia Not Reportable 12/26/16 18:45 Hypochromasia 1+ 12/26/16 18:45 Poikilocytosis Not Reportable 12/26/16 18:45 Anisocytosis 1+ 12/26/16 18:45 Microcytosis Not Reportable 12/26/16 18:45 Macrocytosis Not Reportable 12/26/16 18:45 Spherocytes Not Reportable 12/26/16 18:45 Pappenheimer Bodies Not Reportable 12/26/16 18:45 Sickle Cells Not Reportable 12/26/16 18:45 Target Cells Not Reportable 12/26/16 18:45 Tear Drop Cells Not Reportable 12/26/16 18:45 Ovalocytes Not Reportable 12/26/16 18:45 Helmet Cells Not Reportable 12/26/16 18:45 Jarrett-Garwood Bodies Not Reportable 12/26/16 18:45 Bourbon Rings Not Reportable 12/26/16 18:45 Boss Cells Not Reportable 12/26/16 18:45 Bite Cells Not Reportable 12/26/16 18:45 Crenated Cell Not Reportable 12/26/16 18:45 Elliptocytes Not Reportable 12/26/16 18:45 Acanthocytes (Spur) Not Reportable 12/26/16 18:45 Rouleaux Not Reportable 12/26/16 18:45 Hemoglobin C Crystals Not Reportable 12/26/16 18:45 Schistocytes Not Reportable 12/26/16 18:45 Malaria parasites Not Reportable 12/26/16 18:45 Kyle Bodies Not Reportable 12/26/16 18:45 Hem Pathologist Commnt No 12/26/16 18:45 Sodium 125 mmol/L (137-145) L 12/27/16 04:40 Potassium 4.1 mmol/L (3.6-5.0) 12/27/16 04:40 Chloride 89.8 mmol/L (98-107) L 12/27/16 04:40 Carbon Dioxide 20 mmol/L (22-30) L 12/27/16 04:40 Anion Gap 19 mmol/L 12/27/16 04:40 BUN 34 mg/dL (9-20) H 12/27/16 04:40 Creatinine 1.4 mg/dL (0.8-1.5) 12/27/16 04:40 Estimated GFR 53 ml/min 12/27/16 04:40 BUN/Creatinine Ratio 24.28 % 12/27/16 04:40 Glucose 289 mg/dL (75-100) H 12/27/16 04:40 POC Glucose 354 (70-105) H 12/27/16 12:02 Lactic Acid 1.60 mmol/L (0.7-2.0) 12/26/16 18:53 Calcium 8.2 mg/dL (8.4-10.2) L 12/27/16 04:40 Total Bilirubin 0.60 mg/dL (0.1-1.2) 12/26/16 18:45 AST 54 units/L (5-40) H 12/26/16 18:45 ALT 30 units/L (7-56) 12/26/16 18:45 Alkaline Phosphatase 208 units/L (35-129) H 12/26/16 18:45 Total Creatine Kinase 67 units/L (55-170) 12/26/16 18:45 Troponin T 0.014 ng/mL (0.00-0.029) 12/26/16 18:45 Total Protein 9.6 g/dL (6.3-8.2) H 12/26/16 18:45 Albumin 3.2 g/dL (3.9-5) L 12/26/16 18:45 Albumin/Globulin Ratio 0.5 % 12/26/16 18:45 Lipase 15 units/L (13-60) 12/26/16 18:45 Urine Color Yellow (Yellow) 12/26/16 20:20 Urine Turbidity Cloudy (Clear) 12/26/16 20:20 Urine pH 5.0 (5.0-7.0) 12/26/16 20:20 Ur Specific [place] 1.011 (1.003-1.030) 12/26/16 20:20 Urine Protein 100 mg/dl mg/dL (Negative) 12/26/16 20:20 Urine Glucose (UA) >=500 mg/dL (Negative) 12/26/16 20:20 Urine Ketones Tr mg/dL (Negative) 12/26/16 20:20 Urine Blood Mod (Negative) 12/26/16 20:20 Urine Nitrite Neg (Negative) 12/26/16 20:20 Urine Bilirubin Neg (Negative) 12/26/16 20:20 Urine Urobilinogen < 2.0 mg/dL (<2.0) 12/26/16 20:20 Ur Leukocyte Esterase Lg (Negative) 12/26/16 20:20 Urine WBC (Auto) > 182.0 /HPF (0.0-6.0) H 12/26/16 20:20 Urine RBC (Auto) 3.0 /HPF (0.0-6.0) 12/26/16 20:20 Urine Bacteria (Auto) 4+ /HPF (Negative) 12/26/16 20:20 Urine WBC Clumps 3+ /HPF 12/26/16 20:20 Urine Mucus Few /HPF 12/26/16 20:20 Salicylates < 0.3 mg/dL (2.8-20.0) L 12/26/16 18:53 Acetaminophen < 15.0 ug/mL (10.0-30.0) 12/26/16 18:53
[2016-12-27] MEDS: ZOSYN/NS 4.5GM/100ML 4.5 GM/100 ML VIAL IV SCH ×2 (14:07→22:00)
--- NOTE | 2016-12-27 14:15 | Consultation ---
History of Present Illness Consult date: 12/27/16 Reason for consult: abnormal CXR/CT History of present illness: Called to evaluate case of a 51-year-old male, admitted to the hospital with 2 days history of fever associated with right upper quadrant pain. The patient is a poor or limited informant, even after interview him in [place]. His initial reports what appears to be new onset of right upper quadrant pain associated with bowel degree of fever, that started 2-3 days ago. He denies any nausea or vomiting. He denies any dysuria but reports what appears to be right-sided back pain. There is no history of trauma. No respiratory complaints including cough, hemoptysis disease wheezing is reported at present time. Initial ED evaluation show evidence of Morgan on the urinalysis. On all CT scan was remarkable for what appears to be a moderate right pneumothorax and right kidney changes consistent with gas-forming organism. We are asked to see the patient due to no pneumothorax findings. He denies history of COPD or chronic smoking. Past History Social history: alcohol abuse. denies: smoking Medications and Allergies Allergies Allergy/AdvReac Type Severity Reaction Status Date / Time No Known Allergies Allergy Unverified 12/26/16 18:23 Home Medications Medication Instructions Recorded Confirmed Last Taken Type No Known Home Medications [No 12/26/16 12/26/16 Unknown History Reported Home Medications] Active Meds: Active Medications Acetaminophen (Tylenol) 650 mg PO Q4H PRN PRN Reason: Pain MILD(1-3)/Fever >100.5/BOWLES Last Admin: 12/27/16 00:45 Dose: 650 mg Bisacodyl (Dulcolax) 10 mg IN QDAY PRN PRN Reason: Constipation unrelieved by MOM Enoxaparin Sodium (Lovenox) 40 mg SUB-Q QDAY@1000 PAOLO Hydralazine HCl (Apresoline) 10 mg IV Q4HR PAOLO Piperacillin Sod/Tazobactam Sod (Zosyn/Ns 4.5gm/100ml) 4.5 gm in 100 mls @ 200 mls/hr IV Q8HR PAOLO Last Admin: 12/27/16 14:07 Dose: 200 mls/hr Sodium Chloride (Nacl 0.9% 1000 Ml) 1,000 mls @ 125 mls/hr IV DIRECT PAOLO Insulin Aspart (Novolog) 0 units SUB-Q ACHS PAOLO PRN Reason: Protocol Last Admin: 12/27/16 12:28 Dose: 10 units Magnesium Hydroxide (Milk Of Magnesia) 30 ml PO Q4H PRN PRN Reason: Constipation Ondansetron HCl (Zofran) 4 mg IV Q8H PRN PRN Reason: N/V unrelieved by Reglan Review of Systems Constitutional: weight loss Cardiovascular: palpitations, no chest pain, no orthopnea, no rapid/irregular heart beat, no edema Respiratory: no cough, no cough with sputum, no excessive sputum, no hemoptysis , no shortness of breath, no dyspnea on exertion Gastrointestinal: abdominal pain, no nausea, no vomiting Musculoskeletal: no neck stiffness, no neck pain, no shooting arm pain Integumentary: no rash, no pruritis, no redness, no sores Neurological: no head injury, no transient paralysis, no paralysis, no weakness , no parathesias, no numbness, no seizures, no syncope Psychiatric: anxiety Endocrine: no cold intolerance, no heat intolerance, no polyphagia Physical Examination Vital signs: Vital Signs Pulse Resp Pulse Ox 99 H 17 98 12/26/16 18:16 12/26/16 18:16 12/26/16 18:16 General appearance: no acute distress, alert Eyes: non-icteric ENT: oropharynx moist Neck: supple, no lymphadenopathy, no JVD Ascultation: Right: diminished breath sounds, Bilateral: clear Cardiovascular: regular rate and rhythm Gastrointestinal: normoactive bowel sounds, non-distended Integumentary: normal Extremities: no cyanosis, no edema Musculoskeletal: no deformities normal mental status, non-focal exam, CN II-XII normal, motor strength normal and anxious Results - Laboratory Findings CBC and BMP: 12/28/16 03:49 12/28/16 03:49 Abnormal lab findings: Abnormal Labs 12/27/16 12/27/16 12/27/16 04:40 04:40 12:02 RBC 3.57 L Hgb 9.2 L Hct 27.1 L MCV 76 L MCH 26 L RDW 16.1 H [place] % (Auto) 9.6 H [place] # 0.9 H Seg Neutrophils % 73.4 H Sodium 125 L Chloride 89.8 L Carbon Dioxide 20 L BUN 34 H Glucose 289 H POC Glucose 354 H Calcium 8.2 L - Diagnostic Findings Chest x-ray: report reviewed CT scan - chest: report reviewed Assessment and Plan Right pneumothorax. No obvious or clear-cut etiology. Abdominal CT scan findings raises concern for gas-forming on that organism under the diaphragm, with transdiaphragmatic air leakage into the pleural space. Pyelonephritis. HTN Recommendations: Chest CT scan without contrast. Continue antibiotics. Check urine cultures Consider ID f/u evaluation
[2016-12-27] MEDS: APRESOLINE IV SCH ×3 (14:16→22:45)
[2016-12-27] MEDS: NACL 0.9% 1000 ML 1,000 ML IV SCH (14:17)
--- NOTE | 2016-12-27 18:30 | Cat Scan Report ---
FINAL REPORT PROCEDURE: CT CHEST WO CON TECHNIQUE: Computerized axial tomography of the chest was performed without contrast material. This study is performed without intravenous contrast and the sensitivity for pathology, including neoplasms, adenopathy, abscess, pulmonary embolism and aortic dissection, is reduced. HISTORY: R PneumoTX,emphysematous plyelonephritis COMPARISON: CT scan abdomen and pelvis 12/26/2016 which included images through the lower lung [place]. TECHNICAL QUALITY: Satisfactory. FINDINGS: Pericardium: No evidence of pericardial effusion. Thoracic aorta: No evidence of aneurysmal dilatation. Coronary arteries: Are partially calcified indicating atherosclerotic disease. Mediastinum and hilar regions: Nonspecific subcentimeter lymph nodes are visualized, the largest in the precarinal space measuring 9.8 millimeters short axis.. No pathologically enlarged lymph nodes or masses are identified. Lung [place]: Small to moderate size right pneumothorax visualized. This is probably unchanged from the prior study performed yesterday. There is greater consolidation visualized in the lung bases compared to yesterday's exam consistent with worsening atelectasis. Pneumonia needs clinical exclusion. No effusions are identified. A few small calcified granulomas are visualized in the right lower lobe. Upper abdomen: Gallbladder is partially visualized. Calcified gallstone is seen dependently in the gallbladder. Atherosclerotic changes are seen in the upper abdominal vasculature. No acute abnormalities are visualized Other: None IMPRESSION: Small to moderate size right pneumothorax visualized. This is probably unchanged compared yesterday's CT scan of the abdomen and pelvis. There is consolidation in the lung bases right side greater than left. This has increased since yesterday's exam. I suspect this represents atelectasis. Pneumonia needs clinical exclusion. Cholelithiasis. Atherosclerosis coronary arteries.
[2016-12-28] MEDS: TYLENOL PO PRN ×2 (02:23→21:47)
[2016-12-28] MEDS: APRESOLINE IV SCH ×6 (02:26→21:47)
[2016-12-28] MEDS: NACL 0.9% 1000 ML 1,000 ML IV SCH ×3 (03:23→22:07)
[2016-12-28 05:26] LABS: Anion Gap 17 mmol/L; BUN/Creatinine Ratio 17.27; Blood Urea Nitrogen 19 mg/dL (9-20); Calcium 7.8 mg/dL (8.4-10.2); Carbon Dioxide 19 mmol/L (22-30); Chloride 95.3 mmol/L (98-107); Glucose 178 mg/dL (75-100); Potassium 3.8 mmol/L (3.6-5.0); Sodium 127 mmol/L (137-145)
[2016-12-28 05:38] LABS: Basophils % (Auto) 0.7 % (0.0-1.8); Eosinophils % (Auto) 1.5 % (0.0-4.3); Hematocrit 27.1 % (35.5-45.6); Mean Corpuscular HGB Conc 33 % (32-34); Mean Corpuscular Volume 76 fl (84-94); Platelet Count 329 K/mm3 (140-440); Red Blood Count 3.56 M/mm3 (3.65-5.03); Red Cell Distribution Width 15.2 % (13.2-15.2); White Blood Count 7.3 K/mm3 (4.5-11.0)
[2016-12-28 05:58] LABS: Mean Corpuscular Hemoglobin 25 pg (28-32)
[2016-12-28] MEDS: ZOSYN/NS 4.5GM/100ML 4.5 GM/100 ML VIAL IV SCH ×3 (06:23→21:46)
[2016-12-28] MEDS: NOVOLOG SUB-Q SCH ×4 (08:00→22:06)
[2016-12-28] MEDS: LOVENOX SUB-Q SCH (10:21)
--- NOTE | 2016-12-28 10:26 | Progress Note ---
Assessment and Plan Right pneumothorax. See Chest CT report. No obvious or clear-cut etiology. Abdominal CT scan findings raises concern for gas-forming on that organism under the diaphragm, with transdiaphragmatic air leakage into the pleural space. Pyelonephritis. HTN Recommendations: CXR tomorrow Continue antibiotics. Check urine cultures Consider ID f/u evaluation Subjective Date of service: 12/28/16 Interval history: [place] with some lateral Rt back pain. No SOB or respiratory complains Objective Vital Signs - 12hr 12/27/16 12/28/16 12/28/16 22:45 00:14 01:31 Temperature 99.0 F Pulse Rate 82 86 86 Respiratory 18 Rate Blood Pressure 124/69 103/69 117/73 O2 Sat by Pulse 98 98 Oximetry 12/28/16 12/28/16 12/28/16 02:23 02:26 03:23 Temperature Pulse Rate 86 Respiratory 18 18 Rate Blood Pressure 117/73 O2 Sat by Pulse Oximetry 12/28/16 12/28/16 12/28/16 06:23 07:29 10:22 Temperature 98.1 F Pulse Rate 81 74 78 Respiratory 19 Rate Blood Pressure 93/62 92/53 90/61 O2 Sat by Pulse 98 Oximetry Constitutional: no acute distress, alert Eyes: non-icteric ENT: oropharynx moist Neck: supple, no lymphadenopathy, no JVD Ascultation: Bilateral: clear, diminished breath sounds Cardiovascular: regular rate and rhythm Gastrointestinal: normoactive bowel sounds, tender (RT flank,RUQ), non-distended Integumentary: normal Extremities: no cyanosis, no edema Neurologic: normal mental status, non-focal exam, CN II-XII normal, motor strength normal and Psychiatric: anxious CBC and BMP: 12/28/16 03:49 12/28/16 03:49 Abnormal lab findings: Abnormal Labs 12/27/16 12/27/16 12/27/16 04:40 04:40 12:02 RBC 3.57 L Hgb 9.2 L Hct 27.1 L MCV 76 L MCH 26 L RDW 16.1 H [place] % (Auto) 9.6 H [place] # 0.9 H Seg Neutrophils % 73.4 H Sodium 125 L Chloride 89.8 L Carbon Dioxide 20 L BUN 34 H Glucose 289 H POC Glucose 354 H Calcium 8.2 L 12/27/16 12/27/16 12/28/16 17:16 21:07 03:49 RBC 3.56 L Hgb 9.0 L Hct 27.1 L MCV 76 L MCH 25 L RDW [place] % (Auto) 14.4 H [place] # 1.0 H Seg Neutrophils % Sodium Chloride Carbon Dioxide BUN Glucose POC Glucose 204 H 236 H Calcium 12/28/16 12/28/16 03:49 06:25 RBC Hgb Hct MCV MCH RDW [place] % (Auto) [place] # Seg Neutrophils % Sodium 127 L Chloride 95.3 L Carbon Dioxide 19 L BUN Glucose 178 H POC Glucose [address] scan - chest: report reviewed
--- NOTE | 2016-12-28 10:53 | Progress Note ---
Assessment and Plan Assessment and plan: Emphysematous pyelonephritis, sepsis - Continue on Zosyn - Patient is on IV fluids and pain management -ID consultation Right pneumothorax. -Pulmonary following. -Follow serial chest x-ray. Diabetes mellitus with hyperglycemia -Patient is on high-dose sliding scale insulin -Accu-Chek and will adjust insulin as needed Hypertension - On when necessary hydralazine DVT prophylaxis - Lovenox Disposition - Continue inpatient care History Interval history: Patient complains of right flank pain. Hospitalist Physical - Constitutional Vitals: Temp Pulse Resp BP Pulse Ox 98.1 F 78 19 90/61 98 12/28/16 07:29 12/28/16 10:22 12/28/16 07:29 12/28/16 10:22 12/28/16 10:36 General appearance: Present: no acute distress, well-nourished - EENT Eyes: Present: PERRL, EOM intact ENT: hearing intact, clear oral mucosa, dentition normal - Neck Neck: Present: supple, normal ROM - Respiratory Respiratory effort: normal Respiratory: bilateral: CTA - Cardiovascular Rhythm: regular Heart Sounds: Present: S1 & S2. Absent: gallop, rub - Extremities Extremities: no ischemia, No edema, Full ROM - Abdominal General gastrointestinal: soft, tender (right flank), non-distended, normal bowel sounds - Integumentary Integumentary: Present: clear, warm, dry - Neurologic Neurologic: CNII-XII intact, moves all extremities Results - Labs CBC & Chem 7: 12/28/16 03:49 12/28/16 03:49 Labs: Laboratory Last Values WBC 7.3 K/mm3 (4.5-11.0) 12/28/16 03:49 RBC 3.56 M/mm3 (3.65-5.03) L 12/28/16 03:49 Hgb 9.0 gm/dl (11.8-15.2) L 12/28/16 03:49 Hct 27.1 % (35.5-45.6) L 12/28/16 03:49 MCV 76 fl (84-94) L 12/28/16 03:49 MCH 25 pg (28-32) L 12/28/16 03:49 MCHC 33 % (32-34) 12/28/16 03:49 RDW 15.2 % (13.2-15.2) 12/28/16 03:49 Plt Count 329 K/mm3 (140-440) 12/28/16 03:49 Lymph % (Auto) 23.4 % (13.4-35.0) 12/28/16 03:49 Ray % (Auto) 14.4 % (0.0-7.3) H 12/28/16 03:49 Eos % (Auto) 1.5 % (0.0-4.3) 12/28/16 03:49 Baso % (Auto) 0.7 % (0.0-1.8) 12/28/16 03:49 Lymph # 1.7 K/mm3 (1.2-5.4) 12/28/16 03:49 Ray # 1.0 K/mm3 (0.0-0.8) H 12/28/16 03:49 Eos # 0.1 K/mm3 (0.0-0.4) 12/28/16 03:49 Baso # 0.0 K/mm3 (0.0-0.1) 12/28/16 03:49 Add Manual Diff Complete 12/26/16 18:45 Total Counted 100 12/26/16 18:45 Seg Neutrophils % 60.0 % (40.0-70.0) 12/28/16 03:49 Seg Neuts % (Manual) 82.0 % (40.0-70.0) H 12/26/16 18:45 Band Neutrophils % 0 % 12/26/16 18:45 Lymphocytes % (Manual) 13.0 % (13.4-35.0) L 12/26/16 18:45 Reactive Lymphs % (Man) 0 % 12/26/16 18:45 Monocytes % (Manual) 3.0 % (0.0-7.3) 12/26/16 18:45 Eosinophils % (Manual) 0 % (0.0-4.3) 12/26/16 18:45 Basophils % (Manual) 0 % (0.0-1.8) 12/26/16 18:45 Metamyelocytes % 2.0 % 12/26/16 18:45 Myelocytes % 0 % 12/26/16 18:45 Promyelocytes % 0 % 12/26/16 18:45 Blast Cells % 0 % 12/26/16 18:45 Nucleated RBC % Not Reportable 12/26/16 18:45 Seg Neutrophils # 4.4 K/mm3 (1.8-7.7) 12/28/16 03:49 Seg Neutrophils # Man 10.3 K/mm3 (1.8-7.7) H 12/26/16 18:45 Band Neutrophils # 0.0 K/mm3 12/26/16 18:45 Lymphocytes # (Manual) 1.6 K/mm3 (1.2-5.4) 12/26/16 18:45 Abs React Lymphs (Man) 0.0 K/mm3 12/26/16 18:45 Monocytes # (Manual) 0.4 K/mm3 (0.0-0.8) 12/26/16 18:45 Eosinophils # (Manual) 0.0 K/mm3 (0.0-0.4) 12/26/16 18:45 Basophils # (Manual) 0.0 K/mm3 (0.0-0.1) 12/26/16 18:45 Metamyelocytes # 0.3 K/mm3 12/26/16 18:45 Myelocytes # 0.0 K/mm3 12/26/16 18:45 Promyelocytes # 0.0 K/mm3 12/26/16 18:45 Blast Cells # 0.0 K/mm3 12/26/16 18:45 WBC Morphology Not Reportable 12/26/16 18:45 Hypersegmented Neuts Not Reportable 12/26/16 18:45 Hyposegmented Neuts Not Reportable 12/26/16 18:45 Hypogranular Neuts Not Reportable 12/26/16 18:45 Smudge Cells Not Reportable 12/26/16 18:45 Toxic Granulation Not Reportable 12/26/16 18:45 Toxic Vacuolation Not Reportable 12/26/16 18:45 Dohle Bodies Not Reportable 12/26/16 18:45 Pelger-Huet Anomaly Not Reportable 12/26/16 18:45 Shelby Rods Not Reportable 12/26/16 18:45 Platelet Estimate Appears normal 12/26/16 18:45 Clumped Platelets Not Reportable 12/26/16 18:45 Plt Clumps, EDTA Not Reportable 12/26/16 18:45 Large Platelets Not Reportable 12/26/16 18:45 Giant Platelets Not Reportable 12/26/16 18:45 Platelet Satelliting Not Reportable 12/26/16 18:45 Plt Morphology Comment Not Reportable 12/26/16 18:45 RBC Morphology Not Reportable 12/26/16 18:45 Dimorphic RBCs Not Reportable 12/26/16 18:45 Polychromasia Not Reportable 12/26/16 18:45 Hypochromasia 1+ 12/26/16 18:45 Poikilocytosis Not Reportable 12/26/16 18:45 Anisocytosis 1+ 12/26/16 18:45 Microcytosis Not Reportable 12/26/16 18:45 Macrocytosis Not Reportable 12/26/16 18:45 Spherocytes Not Reportable 12/26/16 18:45 Pappenheimer Bodies Not Reportable 12/26/16 18:45 Sickle Cells Not Reportable 12/26/16 18:45 Target Cells Not Reportable 12/26/16 18:45 Tear Drop Cells Not Reportable 12/26/16 18:45 Ovalocytes Not Reportable 12/26/16 18:45 Helmet Cells Not Reportable 12/26/16 18:45 Jarrett-[place] Bodies Not Reportable 12/26/16 18:45 [place] Rings Not Reportable 12/26/16 18:45 [place] Cells Not Reportable 12/26/16 18:45 Bite Cells Not Reportable 12/26/16 18:45 Crenated Cell Not Reportable 12/26/16 18:45 Elliptocytes Not Reportable 12/26/16 18:45 Acanthocytes (Spur) Not Reportable 12/26/16 18:45 Rouleaux Not Reportable 12/26/16 18:45 Hemoglobin C Crystals Not Reportable 12/26/16 18:45 Schistocytes Not Reportable 12/26/16 18:45 Malaria parasites Not Reportable 12/26/16 18:45 Kyle Bodies Not Reportable 12/26/16 18:45 Hem Pathologist Commnt No 12/26/16 18:45 Sodium 127 mmol/L (137-145) L 12/28/16 03:49 Potassium 3.8 mmol/L (3.6-5.0) 12/28/16 03:49 Chloride 95.3 mmol/L (98-107) L 12/28/16 03:49 Carbon Dioxide 19 mmol/L (22-30) L 12/28/16 03:49 Anion Gap 17 mmol/L 12/28/16 03:49 BUN 19 mg/dL (9-20) 12/28/16 03:49 Creatinine 1.1 mg/dL (0.8-1.5) 12/28/16 03:49 Estimated GFR > 60 ml/min 12/28/16 03:49 BUN/Creatinine Ratio 17.27 % 12/28/16 03:49 Glucose 178 mg/dL (75-100) H 12/28/16 03:49 POC Glucose 200 (70-105) H 12/28/16 06:25 Lactic Acid 1.60 mmol/L (0.7-2.0) 12/26/16 18:53 Calcium 7.8 mg/dL (8.4-10.2) L 12/28/16 03:49 Total Bilirubin 0.60 mg/dL (0.1-1.2) 12/26/16 18:45 AST 54 units/L (5-40) H 12/26/16 18:45 ALT 30 units/L (7-56) 12/26/16 18:45 Alkaline Phosphatase 208 units/L (35-129) H 12/26/16 18:45 Total Creatine Kinase 67 units/L (55-170) 12/26/16 18:45 Troponin T 0.014 ng/mL (0.00-0.029) 12/26/16 18:45 Total Protein 9.6 g/dL (6.3-8.2) H 12/26/16 18:45 Albumin 3.2 g/dL (3.9-5) L 12/26/16 18:45 Albumin/Globulin Ratio 0.5 % 12/26/16 18:45 Lipase 15 units/L (13-60) 12/26/16 18:45 Urine Color Yellow (Yellow) 12/26/16 20:20 Urine Turbidity Cloudy (Clear) 12/26/16 20:20 Urine pH 5.0 (5.0-7.0) 12/26/16 20:20 Ur Specific [place] 1.011 (1.003-1.030) 12/26/16 20:20 Urine Protein 100 mg/dl mg/dL (Negative) 12/26/16 20:20 Urine Glucose (UA) >=500 mg/dL (Negative) 12/26/16 20:20 Urine Ketones Tr mg/dL (Negative) 12/26/16 20:20 Urine Blood Mod (Negative) 12/26/16 20:20 Urine Nitrite Neg (Negative) 12/26/16 20:20 Urine Bilirubin Neg (Negative) 12/26/16 20:20 Urine Urobilinogen < 2.0 mg/dL (<2.0) 12/26/16 20:20 Ur Leukocyte Esterase Lg (Negative) 12/26/16 20:20 Urine WBC (Auto) > 182.0 /HPF (0.0-6.0) H 12/26/16 20:20 Urine RBC (Auto) 3.0 /HPF (0.0-6.0) 12/26/16 20:20 Urine Bacteria (Auto) 4+ /HPF (Negative) 12/26/16 20:20 Urine WBC Clumps 3+ /HPF 12/26/16 20:20 Urine Mucus Few /HPF 12/26/16 20:20 Salicylates < 0.3 mg/dL (2.8-20.0) L 12/26/16 18:53 Acetaminophen < 15.0 ug/mL (10.0-30.0) 12/26/16 18:53
--- NOTE | 2016-12-28 12:47 | Consultation ---
History of Present Illness - Reason for Consult Consult date: 12/28/16 pyelonephritis - History of Present Illness 51 years old male with history of diabetes, hypertension and previous toe amputation, who was admitted on 12/26/2016 due to worsening right-sided abdominal pain. Abdominal pain was initially dull but then became crampy. Intensity was 10/10. No radiation. Patient reports that he became sick, with malaise and anorexia for the past 4 weeks. It looked like his apartment bathroom was broken 4 weeks and a strong sewerage odor invaded his place. Patient reports that the smell made him sick. He said that he also fell down to the floor, denies losing consciousness. During the last week the right- sided abdominal pain became excruciating. Patient denies any fever at home. Patient denies any dysuria hematuria or frequency. In the ED, his temperature was 100.3, however it went up to 102.2. Initial white count was 12.5, sodium 121, creatinine 1.7 and glucose 332. UA showed large leukocyte esterase and white blood cells >182. CT chest small right sided pneumothorax. CT abdomen and pelvis showed moderate right pneumothorax, cholelithiasis, calcification of the pancreatic head, gas bubbles in the right renal collecting system, right colon thickening and prostate enlargement. Microbiology: Blood cultures: 12/[address] IN[employer] 1 of 4 Urine cultures: 12/26 10-100k mixed Current Antimicrobials: Zosyn 12/27 Previous Antimicrobials: Past History Past Medical History: diabetes, hypertension Past Surgical History: Other (colectomy ) Social history: alcohol abuse. denies: smoking Medications and Allergies Allergies Allergy/AdvReac Type Severity Reaction Status Date / Time No Known Allergies Allergy Unverified 12/26/16 18:23 Home Medications Medication Instructions Recorded Confirmed Last Taken Type No Known Home Medications [No 12/26/16 12/26/16 Unknown History Reported Home Medications] Active Meds: Active Medications Acetaminophen (Tylenol) 650 mg PO Q4H PRN PRN Reason: Pain MILD(1-3)/Fever >100.5/BOWLES Last Admin: 12/28/16 02:23 Dose: 650 mg Bisacodyl (Dulcolax) 10 mg ID QDAY PRN PRN Reason: Constipation unrelieved by MOM Enoxaparin Sodium (Lovenox) 40 mg SUB-Q QDAY@1000 PAOLO Last Admin: 12/28/16 10:21 Dose: 40 mg Hydralazine HCl (Apresoline) 10 mg IV Q4HR [facility] Last Admin: 12/28/16 10:22 Dose: Not Given Piperacillin Sod/Tazobactam Sod (Zosyn/Ns 4.5gm/100ml) 4.5 gm in 100 mls @ 200 mls/hr IV Q8HR [facility] Last Admin: 12/28/16 06:23 Dose: 200 mls/hr Sodium Chloride (Nacl 0.9% 1000 Ml) 1,000 mls @ 125 mls/hr IV DIRECT [facility] Last Admin: 12/28/16 03:23 Dose: 125 mls/hr Insulin Aspart (Novolog) 0 units SUB-Q ACHS [facility] PRN Reason: Protocol Last Admin: 12/28/16 12:39 Dose: 4 units Magnesium Hydroxide (Milk Of Magnesia) 30 ml PO Q4H PRN PRN Reason: Constipation Ondansetron HCl (Zofran) 4 mg IV Q8H PRN PRN Reason: N/V unrelieved by Reglan Review of Systems Constitutional: fever, chills, fatigue, malaise Ears, nose, mouth and throat: no nasal congestion Cardiovascular: no chest pain, no palpitations Respiratory: no cough, no cough with sputum Gastrointestinal: abdominal pain, loss of appetite, no vomiting, no diarrhea Genitourinary Male: flank pain, no dysuria, no hematuria, no discharge Musculoskeletal: no neck stiffness Integumentary: no rash, no sores, no wounds Physical Examination - Physical Exam Narrative exam: General appearance: Alert in NAD, conversant Eyes: anicteric sclerae, moist conjunctivae; no lid-lag; PERRLA HENT: Atraumatic; oropharynx clear + poor dentition Neck: Trachea midline; supple, no thyromegaly or lymphadenopathy Lungs: bibasilar crackles CV: RRR, no murmurs Abdomen: Soft, +TTP right sided + Right CV tenderness Extremities: No peripheral edema or extremity lymphadenopathy Skin: Normal temperature, turgor and texture; no rash, ulcers or subcutaneous nodules Psych: Appropriate affect, alert and oriented to person, place and time. Neuro: alert and oriented x 3. Moving all extermities Lines: No CVL / PICC - Constitutional Vitals: Vital Signs Temp Pulse Resp BP Pulse Ox 98.1 F 78 19 90/61 98 12/28/16 07:29 12/28/16 10:22 12/28/16 07:29 12/28/16 10:22 12/28/16 10:36 Temperature -Last 24 Hours Temperature 98.1 F Temperature 99.0 F Temperature 100.7 F Results - Labs CBC & Chem 7: 12/28/16 03:49 12/28/16 03:49 Labs: Abnormal lab results 12/27/16 12/27/16 12/28/16 Range/Units 17:16 21:07 03:49 RBC 3.56 L (3.65-5.03) M/mm3 Hgb 9.0 L (11.8-15.2) gm/dl Hct 27.1 L (35.5-45.6) % MCV 76 L (84-94) fl MCH 25 L (28-32) pg [place] % (Auto) 14.4 H (0.0-7.3) % [place] # 1.0 H (0.0-0.8) K/mm3 Sodium (137-145) mmol/L Chloride (98-107) mmol/L Carbon Dioxide (22-30) mmol/L Glucose (75-100) mg/dL POC Glucose 204 H 236 H (70-105) Calcium (8.4-10.2) mg/dL 12/28/16 12/28/16 12/28/16 Range/Units 03:49 06:25 11:38 RBC (3.65-5.03) M/mm3 Hgb (11.8-15.2) gm/dl Hct (35.5-45.6) % MCV (84-94) fl MCH (28-32) pg [place] % (Auto) (0.0-7.3) % [place] # (0.0-0.8) K/mm3 Sodium 127 L (137-145) mmol/L Chloride 95.3 L (98-107) mmol/L Carbon Dioxide 19 L (22-30) mmol/L Glucose 178 H (75-100) mg/dL POC Glucose 200 H 240 H (70-105) Calcium 7.8 L (8.4-10.2) mg/dL - Imaging and Cardiology CT scan - abdomen: report reviewed (as per HPI) Assessment and Plan Assessment: 1) Sepsis: Present on admission, manifested by fever, leukocytosis. Etiology most likely UTI. 2) Complicated UTI: right sided pyelonephritis -CT showed + gas bubbles in the right renal collecting system 3) DM-uncontrolled 4) Hyponatremia 5) AMS - better; from UTI/hyponatremia 6) Recent fall 7) Right sided pneumothorax? due to recent fall. CT abdomen and pelvis showed moderate right pneumothorax 8) Malnutrition 9) MIYA Plan: -follow-up blood cultures -re-send urine culture -obtain C-reactive protein (CRP) -continue zosyn -renal US Thank you Dr Burgess for your consultation, will follow up with you. Catrina Pittman MD Infectious Diseases Specialist [facility] ([facility] M [phone] O [phone]
--- NOTE | 2016-12-28 16:35 | Ultrasound Report ---
Renal ultrasound: The right renal length is 9.5 cm and the left is 13 cm. Both kidneys are moderately echogenic. Highly reflective foci are scattered throughout the right kidney with shadowing. There are no renal masses identified and there is no hydronephrosis. Imaging of the urinary bladder demonstrates dependent echogenic debris several high reflective echoes are present in the bladder and there is mild distention of the bladder. Recent CT scan demonstrated significant gas in the right renal collecting system as well as the urinary bladder. Impressions: 1. Echogenic kidneys consistent with medical renal disease. 2. The right renal and bladder echogenicity are consistent with air bubbles as seen on recent CT scan. 3. The bladder debris could be blood or infection purulence.
[2016-12-29] MEDS: APRESOLINE IV SCH ×6 (01:55→21:44)
[2016-12-29] MEDS: ZOSYN/NS 4.5GM/100ML 4.5 GM/100 ML VIAL IV SCH ×3 (06:11→21:45)
[2016-12-29] MEDS: NACL 0.9% 1000 ML 1,000 ML IV SCH ×3 (08:02→23:43)
[2016-12-29] MEDS: NOVOLOG SUB-Q SCH ×4 (08:51→21:46)
--- NOTE | 2016-12-29 09:13 | Progress Note ---
Assessment and Plan Assessment and plan: Emphysematous pyelonephritis, sepsis - Continue on Zosyn - Patient is on IV fluids and pain management -ID following Right pneumothorax. Etiology likely secondary to recent fall. -Pulmonary following. -Follow serial chest x-ray. Diabetes mellitus 2, uncontrolled -Patient is on high-dose sliding scale insulin -Accu-Chek and will adjust insulin as needed -Add lantus at bedtime. Hyponatremia. -Continue normal saline IV fluid hydration. Hypertension - On when necessary hydralazine DVT prophylaxis - Lovenox Disposition - Continue inpatient care History Interval history: Patient complains of right flank pain. Hospitalist Physical - Constitutional Vitals: Temp Pulse Resp BP Pulse Ox 98.1 F 78 18 109/72 98 12/29/16 00:05 12/29/16 06:10 12/29/16 00:05 12/29/16 06:10 12/29/16 00:05 General appearance: Present: no acute distress, well-nourished - EENT Eyes: Present: PERRL, EOM intact ENT: hearing intact, clear oral mucosa, dentition normal - Neck Neck: Present: supple, normal ROM - Respiratory Respiratory effort: normal Respiratory: bilateral: CTA - Cardiovascular Rhythm: regular Heart Sounds: Present: S1 & S2. Absent: gallop, rub - Extremities Extremities: no ischemia, No edema, Full ROM - Abdominal General gastrointestinal: soft, tender (right flank), non-distended, normal bowel sounds - Integumentary Integumentary: Present: clear, warm, dry - Neurologic Neurologic: CNII-XII intact, moves all extremities Results - Labs CBC & Chem 7: 12/28/16 03:49 12/28/16 03:49 Labs: Laboratory Last Values WBC 7.3 K/mm3 (4.5-11.0) 12/28/16 03:49 RBC 3.56 M/mm3 (3.65-5.03) L 12/28/16 03:49 Hgb 9.0 gm/dl (11.8-15.2) L 12/28/16 03:49 Hct 27.1 % (35.5-45.6) L 12/28/16 03:49 MCV 76 fl (84-94) L 12/28/16 03:49 MCH 25 pg (28-32) L 12/28/16 03:49 MCHC 33 % (32-34) 12/28/16 03:49 RDW 15.2 % (13.2-15.2) 12/28/16 03:49 Plt Count 329 K/mm3 (140-440) 12/28/16 03:49 Lymph % (Auto) 23.4 % (13.4-35.0) 12/28/16 03:49 [place] % (Auto) 14.4 % (0.0-7.3) H 12/28/16 03:49 Eos % (Auto) 1.5 % (0.0-4.3) 12/28/16 03:49 Baso % (Auto) 0.7 % (0.0-1.8) 12/28/16 03:49 Lymph # 1.7 K/mm3 (1.2-5.4) 12/28/16 03:49 [place] # 1.0 K/mm3 (0.0-0.8) H 12/28/16 03:49 Eos # 0.1 K/mm3 (0.0-0.4) 12/28/16 03:49 Baso # 0.0 K/mm3 (0.0-0.1) 12/28/16 03:49 Add Manual Diff Complete 12/26/16 18:45 Total Counted 100 12/26/16 18:45 Seg Neutrophils % 60.0 % (40.0-70.0) 12/28/16 03:49 Seg Neuts % (Manual) 82.0 % (40.0-70.0) H 12/26/16 18:45 Band Neutrophils % 0 % 12/26/16 18:45 Lymphocytes % (Manual) 13.0 % (13.4-35.0) L 12/26/16 18:45 Reactive Lymphs % (Man) 0 % 12/26/16 18:45 Monocytes % (Manual) 3.0 % (0.0-7.3) 12/26/16 18:45 Eosinophils % (Manual) 0 % (0.0-4.3) 12/26/16 18:45 Basophils % (Manual) 0 % (0.0-1.8) 12/26/16 18:45 Metamyelocytes % 2.0 % 12/26/16 18:45 Myelocytes % 0 % 12/26/16 18:45 Promyelocytes % 0 % 12/26/16 18:45 Blast Cells % 0 % 12/26/16 18:45 Nucleated RBC % Not Reportable 12/26/16 18:45 Seg Neutrophils # 4.4 K/mm3 (1.8-7.7) 12/28/16 03:49 Seg Neutrophils # Man 10.3 K/mm3 (1.8-7.7) H 12/26/16 18:45 Band Neutrophils # 0.0 K/mm3 12/26/16 18:45 Lymphocytes # (Manual) 1.6 K/mm3 (1.2-5.4) 12/26/16 18:45 Abs React Lymphs (Man) 0.0 K/mm3 12/26/16 18:45 Monocytes # (Manual) 0.4 K/mm3 (0.0-0.8) 12/26/16 18:45 Eosinophils # (Manual) 0.0 K/mm3 (0.0-0.4) 12/26/16 18:45 Basophils # (Manual) 0.0 K/mm3 (0.0-0.1) 12/26/16 18:45 Metamyelocytes # 0.3 K/mm3 12/26/16 18:45 Myelocytes # 0.0 K/mm3 12/26/16 18:45 Promyelocytes # 0.0 K/mm3 12/26/16 18:45 Blast Cells # 0.0 K/mm3 12/26/16 18:45 WBC Morphology Not Reportable 12/26/16 18:45 Hypersegmented Neuts Not Reportable 12/26/16 18:45 Hyposegmented Neuts Not Reportable 12/26/16 18:45 Hypogranular Neuts Not Reportable 12/26/16 18:45 Smudge Cells Not Reportable 12/26/16 18:45 Toxic Granulation Not Reportable 12/26/16 18:45 Toxic Vacuolation Not Reportable 12/26/16 18:45 Dohle Bodies Not Reportable 12/26/16 18:45 Pelger-Huet Anomaly Not Reportable 12/26/16 18:45 Shelby Rods Not Reportable 12/26/16 18:45 Platelet Estimate Appears normal 12/26/16 18:45 Clumped Platelets Not Reportable 12/26/16 18:45 Plt Clumps, EDTA Not Reportable 12/26/16 18:45 Large Platelets Not Reportable 12/26/16 18:45 Giant Platelets Not Reportable 12/26/16 18:45 Platelet Satelliting Not Reportable 12/26/16 18:45 Plt Morphology Comment Not Reportable 12/26/16 18:45 RBC Morphology Not Reportable 12/26/16 18:45 Dimorphic RBCs Not Reportable 12/26/16 18:45 Polychromasia Not Reportable 12/26/16 18:45 Hypochromasia 1+ 12/26/16 18:45 Poikilocytosis Not Reportable 12/26/16 18:45 Anisocytosis 1+ 12/26/16 18:45 Microcytosis Not Reportable 12/26/16 18:45 Macrocytosis Not Reportable 12/26/16 18:45 Spherocytes Not Reportable 12/26/16 18:45 Pappenheimer Bodies Not Reportable 12/26/16 18:45 Sickle Cells Not Reportable 12/26/16 18:45 Target Cells Not Reportable 12/26/16 18:45 Tear Drop Cells Not Reportable 12/26/16 18:45 Ovalocytes Not Reportable 12/26/16 18:45 Helmet Cells Not Reportable 12/26/16 18:45 [place] Bodies Not Reportable 12/26/16 18:45 Almo Rings Not Reportable 12/26/16 18:45 Jessica Cells Not Reportable 12/26/16 18:45 Bite Cells Not Reportable 12/26/16 18:45 Crenated Cell Not Reportable 12/26/16 18:45 Elliptocytes Not Reportable 12/26/16 18:45 Acanthocytes (Spur) Not Reportable 12/26/16 18:45 Rouleaux Not Reportable 12/26/16 18:45 Hemoglobin C Crystals Not Reportable 12/26/16 18:45 Schistocytes Not Reportable 12/26/16 18:45 Malaria parasites Not Reportable 12/26/16 18:45 Kyle Bodies Not Reportable 12/26/16 18:45 Hem Pathologist Commnt No 12/26/16 18:45 Sodium 127 mmol/L (137-145) L 12/28/16 03:49 Potassium 3.8 mmol/L (3.6-5.0) 12/28/16 03:49 Chloride 95.3 mmol/L (98-107) L 12/28/16 03:49 Carbon Dioxide 19 mmol/L (22-30) L 12/28/16 03:49 Anion Gap 17 mmol/L 12/28/16 03:49 BUN 19 mg/dL (9-20) 12/28/16 03:49 Creatinine 1.1 mg/dL (0.8-1.5) 12/28/16 03:49 Estimated GFR > 60 ml/min 12/28/16 03:49 BUN/Creatinine Ratio 17.27 % 12/28/16 03:49 Glucose 178 mg/dL (75-100) H 12/28/16 03:49 POC Glucose 250 (70-105) H 12/29/16 06:31 Lactic Acid 1.60 mmol/L (0.7-2.0) 12/26/16 18:53 Calcium 7.8 mg/dL (8.4-10.2) L 12/28/16 03:49 Total Bilirubin 0.60 mg/dL (0.1-1.2) 12/26/16 18:45 AST 54 units/L (5-40) H 12/26/16 18:45 ALT 30 units/L (7-56) 12/26/16 18:45 Alkaline Phosphatase 208 units/L (35-129) H 12/26/16 18:45 Total Creatine Kinase 67 units/L (55-170) 12/26/16 18:45 Troponin T 0.014 ng/mL (0.00-0.029) 12/26/16 18:45 C-Reactive Protein 9.70 mg/dL (0.00-1.30) H 12/28/16 15:55 Total Protein 9.6 g/dL (6.3-8.2) H 12/26/16 18:45 Albumin 3.2 g/dL (3.9-5) L 12/26/16 18:45 Albumin/Globulin Ratio 0.5 % 12/26/16 18:45 Lipase 15 units/L (13-60) 12/26/16 18:45 Urine Color Yellow (Yellow) 12/26/16 20:20 Urine Turbidity Cloudy (Clear) 12/26/16 20:20 Urine pH 5.0 (5.0-7.0) 12/26/16 20:20 Ur Specific [place] 1.011 (1.003-1.030) 12/26/16 20:20 Urine Protein 100 mg/dl mg/dL (Negative) 12/26/16 20:20 Urine Glucose (UA) >=500 mg/dL (Negative) 12/26/16 20:20 Urine Ketones Tr mg/dL (Negative) 12/26/16 20:20 Urine Blood Mod (Negative) 12/26/16 20:20 Urine Nitrite Neg (Negative) 12/26/16 20:20 Urine Bilirubin Neg (Negative) 12/26/16 20:20 Urine Urobilinogen < 2.0 mg/dL (<2.0) 12/26/16 20:20 Ur Leukocyte Esterase Lg (Negative) 12/26/16 20:20 Urine WBC (Auto) > 182.0 /HPF (0.0-6.0) H 12/26/16 20:20 Urine RBC (Auto) 3.0 /HPF (0.0-6.0) 12/26/16 20:20 Urine Bacteria (Auto) 4+ /HPF (Negative) 12/26/16 20:20 Urine WBC Clumps 3+ /HPF 12/26/16 20:20 Urine Mucus Few /HPF 12/26/16 20:20 Salicylates < 0.3 mg/dL (2.8-20.0) L 12/26/16 18:53 Acetaminophen < 15.0 ug/mL (10.0-30.0) 12/26/16 18:53
--- NOTE | 2016-12-29 09:39 | Progress Note ---
Assessment and Plan Assessment: 1) Sepsis: Present on admission, manifested by fever, leukocytosis. Etiology most likely UTI. 2) Complicated UTI: right sided pyelonephritis -CT showed + gas bubbles in the right renal collecting system -CRP=9.7 -Urine cx showed mixed bacteria -US renal showed right kidney and bladder bubbles and bladder debris 3) DM-uncontrolled - better 4) Hyponatremia - better 5) AMS - resolved; from UTI/hyponatremia 6) Recent fall 7) Right sided pneumothorax? traumatic due to recent fall. CT abdomen and pelvis showed moderate right pneumothorax 8) Malnutrition 9) MIYA Plan: -re-send urine culture -continue zosyn -upon discharge will do cipro 750 mg po q12h total 14 days from 12/27 until 01/09. Cipro is free at [facility]. Thank you Dr Burgess for your consultation, will follow up with you. Catrina Pittman MD Infectious Diseases Specialist [facility] ([facility]) M [phone] O [phone] Subjective Date of service: 12/29/16 Principal diagnosis: pyelonephritis Interval history: Feels better, eating more, appetite has improved. No fever. No urinary symptoms. Microbiology: Blood cultures: 12/26 [employer] 1 of 4 Urine cultures: 12/26 10-100k mixed Current Antimicrobials: Zosyn 12/27 Objective - Exam Narrative Exam: General appearance: Alert in NAD, conversant Eyes: anicteric sclerae, moist conjunctivae; no lid-lag; PERRLA HENT: Atraumatic; oropharynx clear + poor dentition Neck: Trachea midline; supple, no thyromegaly or lymphadenopathy Lungs: bibasilar crackles CV: RRR, no murmurs Abdomen: Soft, +TTP right sided + Right CV tenderness Extremities: No peripheral edema or extremity lymphadenopathy Skin: Normal temperature, turgor and texture; no rash, ulcers or subcutaneous nodules Psych: Appropriate affect, alert and oriented to person, place and time. Neuro: alert and oriented x 3. Moving all extermities Lines: No CVL / PICC - Constitutional Vitals: Vital Signs Temp Pulse Resp BP Pulse Ox 98.1 F 78 18 109/72 98 12/29/16 00:05 12/29/16 06:10 12/29/16 00:05 12/29/16 06:10 12/29/16 00:05 Temperature -Last 24 Hours Temperature 98.1 F Temperature 98.6 F - Labs CBC & Chem 7: 12/28/16 03:49 12/28/16 03:49 Labs: Abnormal lab results 12/28/16 12/28/16 12/28/16 Range/Units 11:38 15:45 15:55 POC Glucose 240 H 315 H (70-105) C-Reactive Protein 9.70 H (0.00-1.30) mg/dL 12/28/16 12/29/16 Range/Units 21:48 06:31 POC Glucose 333 H 250 H (70-105) C-Reactive Protein (0.00-1.30) mg/dL
--- NOTE | 2016-12-29 10:43 | Progress Note ---
Assessment and Plan Right pneumothorax. See Chest CT report. Pending f/u CXR today.No obvious or clear-cut etiology. Rt complicated Pyelonephritis. Appreciate ID input. No fever today Hyponatremia.Improving HTN Recommendations: CXR Continue antibiotics. Check urine cultures Slowly correct hyponatremia, IMS following Consider ID f/u evaluation Subjective Date of service: 12/29/16 Principal diagnosis: pyelonephritis Interval history: Patient feels better today. Pain have subsided. No fever. No shortness of breath or chest complaints Objective Vital Signs - 12hr 12/28/16 12/29/16 12/29/16 22:47 00:05 01:55 Temperature 98.1 F Pulse Rate 78 78 Respiratory 17 18 Rate Blood Pressure 107/65 107/65 O2 Sat by Pulse 98 Oximetry 12/29/16 06:10 Temperature Pulse Rate 78 Respiratory Rate Blood Pressure 109/72 O2 Sat by Pulse Oximetry Constitutional: no acute distress, alert Eyes: non-icteric ENT: oropharynx moist Neck: supple, no lymphadenopathy, no JVD Ascultation: Bilateral: clear, diminished breath sounds Cardiovascular: regular rate and rhythm Gastrointestinal: normoactive bowel sounds, tender, non-distended Integumentary: normal Extremities: no cyanosis, no edema Neurologic: normal mental status, non-focal exam, CN II-XII normal, motor strength normal and Psychiatric: anxious CBC and BMP: 12/28/16 03:49 12/28/16 03:49 Abnormal lab findings: Abnormal Labs 12/27/16 12/27/16 12/27/16 04:40 04:40 12:02 RBC 3.57 L Hgb 9.2 L Hct 27.1 L MCV 76 L MCH 26 L RDW 16.1 H [place] % (Auto) 9.6 H [place] # 0.9 H Seg Neutrophils % 73.4 H Sodium 125 L Chloride 89.8 L Carbon Dioxide 20 L BUN 34 H Glucose 289 H POC Glucose 354 H Calcium 8.2 L C-Reactive Protein 12/27/16 12/27/16 12/28/16 17:16 21:07 03:49 RBC 3.56 L Hgb 9.0 L Hct 27.1 L MCV 76 L MCH 25 L RDW [place] % (Auto) 14.4 H [place] # 1.0 H Seg Neutrophils % Sodium Chloride Carbon Dioxide BUN Glucose POC Glucose 204 H 236 H Calcium C-Reactive Protein 12/28/16 12/28/16 12/28/16 03:49 06:25 11:38 RBC Hgb Hct MCV MCH RDW [place] % (Auto) [place] # Seg Neutrophils % Sodium 127 L Chloride 95.3 L Carbon Dioxide 19 L BUN Glucose 178 H POC Glucose 200 H 240 H Calcium 7.8 L C-Reactive Protein 12/28/16 12/28/16 12/28/16 15:45 15:55 21:48 RBC Hgb Hct MCV MCH RDW [place] % (Auto) [place] # Seg Neutrophils % Sodium Chloride Carbon Dioxide BUN Glucose POC Glucose 315 H 333 H Calcium C-Reactive Protein 9.70 H 12/29/16 06:31 RBC Hgb Hct MCV MCH RDW [place] % (Auto) [place] # Seg Neutrophils % Sodium Chloride Carbon Dioxide BUN Glucose POC Glucose 250 H Calcium C-Reactive Protein
[2016-12-29] MEDS: LOVENOX SUB-Q SCH (11:08)
--- NOTE | 2016-12-29 13:56 | XRay Report ---
AP CHEST: HISTORY: chest pain AP view of the chest demonstrates a normal mediastinal and cardiac contour with clear lungs and normal bony and soft tissue structures. IMPRESSION: Unremarkable AP chest.
[2016-12-29] MEDS: TYLENOL PO PRN (21:36)
[2016-12-29] MEDS: LEVEMIR SUB-Q SCH (21:46)
[2016-12-30] MEDS: APRESOLINE IV SCH ×6 (03:49→22:55)
[2016-12-30 05:49] LABS: Anion Gap 17 mmol/L; BUN/Creatinine Ratio 14.44; Basophils % (Auto) 0.6 % (0.0-1.8); Blood Urea Nitrogen 13 mg/dL (9-20); Calcium 7.9 mg/dL (8.4-10.2); Carbon Dioxide 19 mmol/L (22-30); Chloride 101.5 mmol/L (98-107); Eosinophils % (Auto) 4.3 % (0.0-4.3); Glucose 162 mg/dL (75-100); Hematocrit 26.7 % (35.5-45.6); Mean Corpuscular HGB Conc 34 % (32-34); Mean Corpuscular Volume 76 fl (84-94); Platelet Count 390 K/mm3 (140-440); Potassium 4.1 mmol/L (3.6-5.0); Red Blood Count 3.52 M/mm3 (3.65-5.03); Red Cell Distribution Width 15.7 % (13.2-15.2); Sodium 133 mmol/L (137-145); White Blood Count 5.9 K/mm3 (4.5-11.0)
[2016-12-30 05:55] LABS: Mean Corpuscular Hemoglobin 26 pg (28-32)
[2016-12-30] MEDS: NACL 0.9% 1000 ML 1,000 ML IV SCH ×3 (07:17→22:49)
[2016-12-30] MEDS: ZOSYN/NS 4.5GM/100ML 4.5 GM/100 ML VIAL IV SCH ×3 (07:18→22:50)
[2016-12-30] MEDS: NOVOLOG SUB-Q SCH ×4 (09:13→22:52)
--- NOTE | 2016-12-30 09:47 | Progress Note ---
Assessment and Plan Assessment: 1) Sepsis: resolved. Etiology most likely UTI. 2) Complicated UTI: right sided pyelonephritis -CT showed + gas bubbles in the right renal collecting system -CRP=9.7 -Urine cx showed mixed bacteria -US renal showed right kidney and bladder bubbles and bladder debris 3) DM-uncontrolled - better 4) Hyponatremia - better 5) AMS - resolved; from UTI/hyponatremia 6) Recent fall 7) Right sided pneumothorax? traumatic due to recent fall. -CT abdomen and pelvis showed moderate right pneumothorax. -CXR repeat normal 8) Malnutrition 9) MIYA Plan: -re-send ua / urine culture -continue zosyn -upon discharge will do cipro 750 mg po q12h total 14 days from 12/27 until 01/09. Cipro is free at [facility]. Thank you Dr Burgess for your consultation, will follow up with you. Catrina Pittman MD Infectious Diseases Specialist [facility] ([facility]) M [phone] O [phone] Subjective Date of service: 12/30/16 Principal diagnosis: pyelonephritis Interval history: Feels better, appetite has improved. No fever. No urinary symptoms. 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 Urine cultures: 12/26 10-100k mixed Current Antimicrobials: Zosyn 12/27 Objective - Exam Narrative Exam: General appearance: Alert in NAD, conversant Eyes: anicteric sclerae HENT: Atraumatic; oropharynx clear + poor dentition Neck: Trachea midline; supple, no thyromegaly or lymphadenopathy Lungs: bibasilar crackles CV: RRR, no murmurs Abdomen: Soft, +TTP right sided + Right CV tenderness Extremities: No peripheral edema or extremity lymphadenopathy Skin: Normal temperature, turgor and texture; no rash, ulcers or subcutaneous nodules Psych: Appropriate affect, alert and oriented to person, place and time. Neuro: alert and oriented x 3. Moving all extermities Lines: No CVL / PICC - Constitutional Vitals: Vital Signs Temp Pulse Resp BP Pulse Ox 97.7 F 75 20 114/71 98 12/30/16 07:20 12/30/16 07:20 12/30/16 07:20 12/30/16 07:20 12/30/16 07:20 Temperature -Last 24 Hours Temperature 97.7 F Temperature 97.7 F Temperature 97.8 F Temperature 97.5 F Temperature 98.3 F - Labs CBC & Chem 7: 12/30/16 03:36 12/30/16 03:36 Labs: Abnormal lab results 12/29/16 12/29/16 12/29/16 Range/Units 11:28 16:18 21:00 RBC (3.65-5.03) M/mm3 Hgb (11.8-15.2) gm/dl Hct (35.5-45.6) % MCV (84-94) fl MCH (28-32) pg RDW (13.2-15.2) % [place] % (Auto) (0.0-7.3) % Sodium (137-145) mmol/L Carbon Dioxide (22-30) mmol/L Glucose (75-100) mg/dL POC Glucose 309 H 390 H 291 H (70-105) Calcium (8.4-10.2) mg/dL 12/30/16 12/30/16 12/30/16 Range/Units 03:36 03:36 06:14 RBC 3.52 L (3.65-5.03) M/mm3 Hgb 9.0 L (11.8-15.2) gm/dl Hct 26.7 L (35.5-45.6) % MCV 76 L (84-94) fl MCH 26 L (28-32) pg RDW 15.7 H (13.2-15.2) % [place] % (Auto) 7.5 H (0.0-7.3) % Sodium 133 L (137-145) mmol/L Carbon Dioxide 19 L (22-30) mmol/L Glucose 162 H (75-100) mg/dL POC Glucose 192 H (70-105) Calcium 7.9 L (8.4-10.2) mg/dL
--- NOTE | 2016-12-30 09:59 | Progress Note ---
Assessment and Plan Assessment and plan: Emphysematous pyelonephritis, sepsis - Continue on Zosyn - Patient is on IV fluids and pain management -ID following -repeat urinalysis/urine culture. Right pneumothorax. Etiology likely secondary to recent fall. -Pulmonary following. -Follow serial chest x-ray. Diabetes mellitus 2, uncontrolled -Patient is on high-dose sliding scale insulin -Accu-Chek and will adjust insulin as needed -Add lantus at bedtime. Hyponatremia. -Continue normal saline IV fluid hydration. Resolving. Hypertension - On when necessary hydralazine DVT prophylaxis - Lovenox Disposition - Anticipate discharge in a.m. if okay will consultants. History Interval history: Patient complains of right flank pain. Hospitalist Physical - Constitutional Vitals: Temp Pulse Resp BP Pulse Ox 97.7 F 75 20 114/71 98 12/30/16 07:20 12/30/16 07:20 12/30/16 07:20 12/30/16 07:20 12/30/16 07:20 General appearance: Present: no acute distress, well-nourished - EENT Eyes: Present: PERRL, EOM intact ENT: hearing intact, clear oral mucosa, dentition normal - Neck Neck: Present: supple, normal ROM - Respiratory Respiratory effort: normal Respiratory: bilateral: CTA - Cardiovascular Rhythm: regular Heart Sounds: Present: S1 & S2. Absent: gallop, rub - Extremities Extremities: no ischemia, No edema, Full ROM - Abdominal General gastrointestinal: soft, non-tender, non-distended, normal bowel sounds - Integumentary Integumentary: Present: clear, warm, dry - Neurologic Neurologic: CNII-XII intact, moves all extremities Results - Labs CBC & Chem 7: 12/30/16 03:36 12/30/16 03:36 Labs: Laboratory Last Values WBC 5.9 K/mm3 (4.5-11.0) 12/30/16 03:36 RBC 3.52 M/mm3 (3.65-5.03) L 12/30/16 03:36 Hgb 9.0 gm/dl (11.8-15.2) L 12/30/16 03:36 Hct 26.7 % (35.5-45.6) L 12/30/16 03:36 MCV 76 fl (84-94) L 12/30/16 03:36 MCH 26 pg (28-32) L 12/30/16 03:36 MCHC 34 % (32-34) 12/30/16 03:36 RDW 15.7 % (13.2-15.2) H 12/30/16 03:36 Plt Count 390 K/mm3 (140-440) 12/30/16 03:36 Lymph % (Auto) 26.9 % (13.4-35.0) 12/30/16 03:36 [place] % (Auto) 7.5 % (0.0-7.3) H 12/30/16 03:36 Eos % (Auto) 4.3 % (0.0-4.3) 12/30/16 03:36 Baso % (Auto) 0.6 % (0.0-1.8) 12/30/16 03:36 Lymph # 1.6 K/mm3 (1.2-5.4) 12/30/16 03:36 [place] # 0.4 K/mm3 (0.0-0.8) 12/30/16 03:36 Eos # 0.3 K/mm3 (0.0-0.4) 12/30/16 03:36 Baso # 0.0 K/mm3 (0.0-0.1) 12/30/16 03:36 Add Manual Diff Complete 12/26/16 18:45 Total Counted 100 12/26/16 18:45 Seg Neutrophils % 60.7 % (40.0-70.0) 12/30/16 03:36 Seg Neuts % (Manual) 82.0 % (40.0-70.0) H 12/26/16 18:45 Band Neutrophils % 0 % 12/26/16 18:45 Lymphocytes % (Manual) 13.0 % (13.4-35.0) L 12/26/16 18:45 Reactive Lymphs % (Man) 0 % 12/26/16 18:45 Monocytes % (Manual) 3.0 % (0.0-7.3) 12/26/16 18:45 Eosinophils % (Manual) 0 % (0.0-4.3) 12/26/16 18:45 Basophils % (Manual) 0 % (0.0-1.8) 12/26/16 18:45 Metamyelocytes % 2.0 % 12/26/16 18:45 Myelocytes % 0 % 12/26/16 18:45 Promyelocytes % 0 % 12/26/16 18:45 Blast Cells % 0 % 12/26/16 18:45 Nucleated RBC % Not Reportable 12/26/16 18:45 Seg Neutrophils # 3.6 K/mm3 (1.8-7.7) 12/30/16 03:36 Seg Neutrophils # Man 10.3 K/mm3 (1.8-7.7) H 12/26/16 18:45 Band Neutrophils # 0.0 K/mm3 12/26/16 18:45 Lymphocytes # (Manual) 1.6 K/mm3 (1.2-5.4) 12/26/16 18:45 Abs React Lymphs (Man) 0.0 K/mm3 12/26/16 18:45 Monocytes # (Manual) 0.4 K/mm3 (0.0-0.8) 12/26/16 18:45 Eosinophils # (Manual) 0.0 K/mm3 (0.0-0.4) 12/26/16 18:45 Basophils # (Manual) 0.0 K/mm3 (0.0-0.1) 12/26/16 18:45 Metamyelocytes # 0.3 K/mm3 12/26/16 18:45 Myelocytes # 0.0 K/mm3 12/26/16 18:45 Promyelocytes # 0.0 K/mm3 12/26/16 18:45 Blast Cells # 0.0 K/mm3 12/26/16 18:45 WBC Morphology Not Reportable 12/26/16 18:45 Hypersegmented Neuts Not Reportable 12/26/16 18:45 Hyposegmented Neuts Not Reportable 12/26/16 18:45 Hypogranular Neuts Not Reportable 12/26/16 18:45 Smudge Cells Not Reportable 12/26/16 18:45 Toxic Granulation Not Reportable 12/26/16 18:45 Toxic Vacuolation Not Reportable 12/26/16 18:45 Dohle Bodies Not Reportable 12/26/16 18:45 Pel[place]-Huet Anomaly Not Reportable 12/26/16 18:45 [place] Rods Not Reportable 12/26/16 18:45 Platelet Estimate Appears normal 12/26/16 18:45 Clumped Platelets Not Reportable 12/26/16 18:45 Plt Clumps, EDTA Not Reportable 12/26/16 18:45 Large Platelets Not Reportable 12/26/16 18:45 Giant Platelets Not Reportable 12/26/16 18:45 Platelet Satelliting Not Reportable 12/26/16 18:45 Plt Morphology Comment Not Reportable 12/26/16 18:45 RBC Morphology Not Reportable 12/26/16 18:45 Dimorphic RBCs Not Reportable 12/26/16 18:45 Polychromasia Not Reportable 12/26/16 18:45 Hypochromasia 1+ 12/26/16 18:45 Poikilocytosis Not Reportable 12/26/16 18:45 Anisocytosis 1+ 12/26/16 18:45 Microcytosis Not Reportable 12/26/16 18:45 Macrocytosis Not Reportable 12/26/16 18:45 Spherocytes Not Reportable 12/26/16 18:45 Pappenheimer Bodies Not Reportable 12/26/16 18:45 Sickle Cells Not Reportable 12/26/16 18:45 Target Cells Not Reportable 12/26/16 18:45 Tear Drop Cells Not Reportable 12/26/16 18:45 Ovalocytes Not Reportable 12/26/16 18:45 Helmet Cells Not Reportable 12/26/16 18:45 [place] I Bodies Not Reportable 12/26/16 18:45 [place] Rings Not Reportable 12/26/16 18:45 [place] Cells Not Reportable 12/26/16 18:45 Bite Cells Not Reportable 12/26/16 18:45 Crenated Cell Not Reportable 12/26/16 18:45 Elliptocytes Not Reportable 12/26/16 18:45 Acanthocytes (Spur) Not Reportable 12/26/16 18:45 Rouleaux Not Reportable 12/26/16 18:45 Hemoglobin C Crystals Not Reportable 12/26/16 18:45 Schistocytes Not Reportable 12/26/16 18:45 Malaria parasites Not Reportable 12/26/16 18:45 Kyle Bodies Not Reportable 12/26/16 18:45 Hem Pathologist Commnt No 12/26/16 18:45 Sodium 133 mmol/L (137-145) L 12/30/16 03:36 Potassium 4.1 mmol/L (3.6-5.0) 12/30/16 03:36 Chloride 101.5 mmol/L (98-107) 12/30/16 03:36 Carbon Dioxide 19 mmol/L (22-30) L 12/30/16 03:36 Anion Gap 17 mmol/L 12/30/16 03:36 BUN 13 mg/dL (9-20) 12/30/16 03:36 Creatinine 0.9 mg/dL (0.8-1.5) 12/30/16 03:36 Estimated GFR > 60 ml/min 12/30/16 03:36 BUN/Creatinine Ratio 14.44 % 12/30/16 03:36 Glucose 162 mg/dL (75-100) H 12/30/16 03:36 POC Glucose 192 (70-105) H 12/30/16 06:14 Lactic Acid 1.60 mmol/L (0.7-2.0) 12/26/16 18:53 Calcium 7.9 mg/dL (8.4-10.2) L 12/30/16 03:36 Total Bilirubin 0.60 mg/dL (0.1-1.2) 12/26/16 18:45 AST 54 units/L (5-40) H 12/26/16 18:45 ALT 30 units/L (7-56) 12/26/16 18:45 Alkaline Phosphatase 208 units/L (35-129) H 12/26/16 18:45 Total Creatine Kinase 67 units/L (55-170) 12/26/16 18:45 Troponin T 0.014 ng/mL (0.00-0.029) 12/26/16 18:45 C-Reactive Protein 9.70 mg/dL (0.00-1.30) H 12/28/16 15:55 Total Protein 9.6 g/dL (6.3-8.2) H 12/26/16 18:45 Albumin 3.2 g/dL (3.9-5) L 12/26/16 18:45 Albumin/Globulin Ratio 0.5 % 12/26/16 18:45 Lipase 15 units/L (13-60) 12/26/16 18:45 Urine Color Yellow (Yellow) 12/26/16 20:20 Urine Turbidity Cloudy (Clear) 12/26/16 20:20 Urine pH 5.0 (5.0-7.0) 12/26/16 20:20 Ur Specific [place] 1.011 (1.003-1.030) 12/26/16 20:20 Urine Protein 100 mg/dl mg/dL (Negative) 12/26/16 20:20 Urine Glucose (UA) >=500 mg/dL (Negative) 12/26/16 20:20 Urine Ketones Tr mg/dL (Negative) 12/26/16 20:20 Urine Blood Mod (Negative) 12/26/16 20:20 Urine Nitrite Neg (Negative) 12/26/16 20:20 Urine Bilirubin Neg (Negative) 12/26/16 20:20 Urine Urobilinogen < 2.0 mg/dL (<2.0) 12/26/16 20:20 Ur Leukocyte Esterase Lg (Negative) 12/26/16 20:20 Urine WBC (Auto) > 182.0 /HPF (0.0-6.0) H 12/26/16 20:20 Urine RBC (Auto) 3.0 /HPF (0.0-6.0) 12/26/16 20:20 Urine Bacteria (Auto) 4+ /HPF (Negative) 12/26/16 20:20 Urine WBC Clumps 3+ /HPF 12/26/16 20:20 Urine Mucus Few /HPF 12/26/16 20:20 Salicylates < 0.3 mg/dL (2.8-20.0) L 12/26/16 18:53 Acetaminophen < 15.0 ug/mL (10.0-30.0) 12/26/16 18:53
[2016-12-30] MEDS: LOVENOX SUB-Q SCH (12:22)
--- NOTE | 2016-12-30 12:32 | Progress Note ---
Assessment and Plan Right pneumothorax. f/u CXR showed failed to show any pneumothorax or evidence of additional barotrauma. History review showed that the patient did have a fall with trauma 2 days prior to admission so, it is conceivable that this might be related to his pneumothorax. Rt complicated Pyelonephritis. Appreciate ID input. No fever today Hyponatremia.Improving HTN Recommendations: CXR prior to discharge Continue, complete antibiotics. May benefit from outpatient evaluation for COPD Nutritional support Subjective Date of service: 12/30/16 Principal diagnosis: pneumothorax, pyelonephritis Interval history: Complaining of some back pain last night. He denies shortness of breath cough or active expectoration. No fever Objective Vital Signs - 12hr 12/30/16 12/30/16 12/30/16 03:46 03:49 07:17 Temperature 97.7 F Pulse Rate 76 72 Respiratory 20 Rate Blood Pressure 145/77 140/77 111/70 O2 Sat by Pulse Oximetry 12/30/16 12/30/16 07:20 12:21 Temperature 97.7 F Pulse Rate 75 75 Respiratory 20 Rate Blood Pressure 114/71 114/71 O2 Sat by Pulse 98 Oximetry Constitutional: no acute distress, alert Eyes: non-icteric ENT: oropharynx moist Neck: supple, no lymphadenopathy, no JVD Ascultation: Bilateral: clear, diminished breath sounds Cardiovascular: regular rate and rhythm Gastrointestinal: normoactive bowel sounds, tender, non-distended Integumentary: normal Extremities: no cyanosis, no edema Neurologic: normal mental status, non-focal exam, CN II-XII normal, motor strength normal and Psychiatric: anxious CBC and BMP: 12/30/16 03:36 12/30/16 03:36 Abnormal lab findings: Abnormal Labs 12/27/16 12/27/16 12/27/16 04:40 04:40 12:02 RBC 3.57 L Hgb 9.2 L Hct 27.1 L MCV 76 L MCH 26 L RDW 16.1 H [place] % (Auto) 9.6 H [place] # 0.9 H Seg Neutrophils % 73.4 H Sodium 125 L Chloride 89.8 L Carbon Dioxide 20 L BUN 34 H Glucose 289 H POC Glucose 354 H Calcium 8.2 L C-Reactive Protein 12/27/16 12/27/16 12/28/16 17:16 21:07 03:49 RBC 3.56 L Hgb 9.0 L Hct 27.1 L MCV 76 L MCH 25 L RDW [place] % (Auto) 14.4 H [place] # 1.0 H Seg Neutrophils % Sodium Chloride Carbon Dioxide BUN Glucose POC Glucose 204 H 236 H Calcium C-Reactive Protein 12/28/16 12/28/16 12/28/16 03:49 06:25 11:38 RBC Hgb Hct MCV MCH RDW [place] % (Auto) [place] # Seg Neutrophils % Sodium 127 L Chloride 95.3 L Carbon Dioxide 19 L BUN Glucose 178 H POC Glucose 200 H 240 H Calcium 7.8 L C-Reactive Protein 12/28/16 12/28/16 12/28/16 15:45 15:55 21:48 RBC Hgb Hct MCV MCH RDW [place] % (Auto) [place] # Seg Neutrophils % Sodium Chloride Carbon Dioxide BUN Glucose POC Glucose 315 H 333 H Calcium C-Reactive Protein 9.70 H 12/29/16 12/29/16 12/29/16 06:31 11:28 16:18 RBC Hgb Hct MCV MCH RDW [place] % (Auto) [place] # Seg Neutrophils % Sodium Chloride Carbon Dioxide BUN Glucose POC Glucose 250 H 309 H 390 H Calcium C-Reactive Protein 12/29/16 12/30/16 12/30/16 21:00 03:36 03:36 RBC 3.52 L Hgb 9.0 L Hct 26.7 L MCV 76 L MCH 26 L RDW 15.7 H [place] % (Auto) 7.5 H [place] # Seg Neutrophils % Sodium 133 L Chloride Carbon Dioxide 19 L BUN Glucose 162 H POC Glucose 291 H Calcium 7.9 L C-Reactive Protein 12/30/16 12/30/16 06:14 11:10 RBC Hgb Hct MCV MCH RDW [place] % (Auto) [place] # Seg Neutrophils % Sodium Chloride Carbon Dioxide BUN Glucose POC Glucose 192 H 237 H Calcium C-Reactive Protein
[2016-12-30] MEDS: TYLENOL PO PRN (22:51)
[2016-12-30] MEDS: LEVEMIR SUB-Q SCH (22:53)
[2016-12-31] MEDS: APRESOLINE IV SCH ×6 (02:29→22:30)
[2016-12-31 06:21] LABS: Basophils % (Auto) 0.8 % (0.0-1.8); Hematocrit 28.4 % (35.5-45.6); Hemoglobin 9.2 gm/dl (11.8-15.2); Mean Corpuscular HGB Conc 32 % (32-34); Mean Corpuscular Volume 77 fl (84-94); Platelet Count 445 K/mm3 (140-440); Red Blood Count 3.68 M/mm3 (3.65-5.03); Red Cell Distribution Width 15.7 % (13.2-15.2); White Blood Count 5.5 K/mm3 (4.5-11.0)
[2016-12-31 06:34] LABS: Mean Corpuscular Hemoglobin 25 pg (28-32)
[2016-12-31] MEDS: NACL 0.9% 1000 ML 1,000 ML IV SCH ×3 (06:46→22:29)
[2016-12-31] MEDS: ZOSYN/NS 4.5GM/100ML 4.5 GM/100 ML VIAL IV SCH ×3 (06:46→22:28)
[2016-12-31] MEDS: NOVOLOG SUB-Q SCH ×4 (08:20→22:29)
[2016-12-31 08:23] LABS: Bacteria,Urine 2+ /HPF (Negative); Bilirubin,Urine NEG (Negative); Blood,Urine SM (Negative); Ketones,Urine NEG (Negative); Leukocyte Esterase,Urine LG (Negative); Nitrite,Urine NEG (Negative); Protein,Urine <15 mg/dL mg/dL (Negative); Urobilinogen,Urine < 2.0 mg/dL (<2.0)
[2016-12-31 08:25] LABS: WBC,Urine > 182.0 /HPF (0.0-6.0)
[2016-12-31 08:45] LABS: Anion Gap 17 mmol/L; BUN/Creatinine Ratio 12.22; Blood Urea Nitrogen 11 mg/dL (9-20); Calcium 7.9 mg/dL (8.4-10.2); Carbon Dioxide 18 mmol/L (22-30); Glucose 98 mg/dL (75-100); Potassium 4.1 mmol/L (3.6-5.0); Sodium 135 mmol/L (137-145)
[2016-12-31] MEDS: LOVENOX SUB-Q SCH (10:10)
--- NOTE | 2016-12-31 10:29 | Progress Note ---
Assessment and Plan Assessment and plan: Emphysematous pyelonephritis, sepsis - Continue on Zosyn - Patient is on IV fluids and pain management -ID following -repeat urinalysis/urine culture. -Cipro 750 mg by mouth every 12 hours at discharge per ID Right pneumothorax. Etiology likely secondary to recent fall. -Pulmonary following. -Follow serial chest x-ray. Diabetes mellitus 2, uncontrolled -Patient is on high-dose sliding scale insulin -Accu-Chek and will adjust insulin as needed -Add lantus at bedtime. Hyponatremia. -Continue normal saline IV fluid hydration. Resolving. Hypertension - On when necessary hydralazine DVT prophylaxis - Lovenox Disposition - Anticipate discharge in a.m. if okay will consultants. History Interval history: Patient complains of right flank pain. Hospitalist Physical - Constitutional Vitals: Temp Pulse Resp BP Pulse Ox 97.6 F 78 20 139/76 99 12/31/16 07:09 12/31/16 10:14 12/31/16 07:09 12/31/16 10:14 12/31/16 07:09 General appearance: Present: no acute distress, well-nourished - EENT Eyes: Present: PERRL, EOM intact ENT: hearing intact, clear oral mucosa, dentition normal - Neck Neck: Present: supple, normal ROM - Respiratory Respiratory effort: normal Respiratory: bilateral: CTA - Cardiovascular Rhythm: regular Heart Sounds: Present: S1 & S2. Absent: gallop, rub - Extremities Extremities: no ischemia, No edema, Full ROM - Abdominal General gastrointestinal: soft, non-tender, non-distended, normal bowel sounds - Integumentary Integumentary: Present: clear, warm, dry - Neurologic Neurologic: CNII-XII intact, moves all extremities Results - Labs CBC & Chem 7: 12/31/16 05:06 12/31/16 07:35 Labs: Laboratory Last Values WBC 5.5 K/mm3 (4.5-11.0) 12/31/16 05:06 RBC 3.68 M/mm3 (3.65-5.03) 12/31/16 05:06 Hgb 9.2 gm/dl (11.8-15.2) L 12/31/16 05:06 Hct 28.4 % (35.5-45.6) L 12/31/16 05:06 MCV 77 fl (84-94) L 12/31/16 05:06 MCH 25 pg (28-32) L 12/31/16 05:06 MCHC 32 % (32-34) 12/31/16 05:06 RDW 15.7 % (13.2-15.2) H 12/31/16 05:06 Plt Count 445 K/mm3 (140-440) H 12/31/16 05:06 Lymph % (Auto) 27.6 % (13.4-35.0) 12/31/16 05:06 [place] % (Auto) 7.9 % (0.0-7.3) H 12/31/16 05:06 Eos % (Auto) 5.0 % (0.0-4.3) H 12/31/16 05:06 Baso % (Auto) 0.8 % (0.0-1.8) 12/31/16 05:06 Lymph # 1.5 K/mm3 (1.2-5.4) 12/31/16 05:06 [place] # 0.4 K/mm3 (0.0-0.8) 12/31/16 05:06 Eos # 0.3 K/mm3 (0.0-0.4) 12/31/16 05:06 Baso # 0.0 K/mm3 (0.0-0.1) 12/31/16 05:06 Add Manual Diff Complete 12/26/16 18:45 Total Counted 100 12/26/16 18:45 Seg Neutrophils % 58.7 % (40.0-70.0) 12/31/16 05:06 Seg Neuts % (Manual) 82.0 % (40.0-70.0) H 12/26/16 18:45 Band Neutrophils % 0 % 12/26/16 18:45 Lymphocytes % (Manual) 13.0 % (13.4-35.0) L 12/26/16 18:45 Reactive Lymphs % (Man) 0 % 12/26/16 18:45 Monocytes % (Manual) 3.0 % (0.0-7.3) 12/26/16 18:45 Eosinophils % (Manual) 0 % (0.0-4.3) 12/26/16 18:45 Basophils % (Manual) 0 % (0.0-1.8) 12/26/16 18:45 Metamyelocytes % 2.0 % 12/26/16 18:45 Myelocytes % 0 % 12/26/16 18:45 Promyelocytes % 0 % 12/26/16 18:45 Blast Cells % 0 % 12/26/16 18:45 Nucleated RBC % Not Reportable 12/26/16 18:45 Seg Neutrophils # 3.2 K/mm3 (1.8-7.7) 12/31/16 05:06 Seg Neutrophils # Man 10.3 K/mm3 (1.8-7.7) H 12/26/16 18:45 Band Neutrophils # 0.0 K/mm3 12/26/16 18:45 Lymphocytes # (Manual) 1.6 K/mm3 (1.2-5.4) 12/26/16 18:45 Abs React Lymphs (Man) 0.0 K/mm3 12/26/16 18:45 Monocytes # (Manual) 0.4 K/mm3 (0.0-0.8) 12/26/16 18:45 Eosinophils # (Manual) 0.0 K/mm3 (0.0-0.4) 12/26/16 18:45 Basophils # (Manual) 0.0 K/mm3 (0.0-0.1) 12/26/16 18:45 Metamyelocytes # 0.3 K/mm3 12/26/16 18:45 Myelocytes # 0.0 K/mm3 12/26/16 18:45 Promyelocytes # 0.0 K/mm3 12/26/16 18:45 Blast Cells # 0.0 K/mm3 12/26/16 18:45 WBC Morphology Not Reportable 12/26/16 18:45 Hypersegmented Neuts Not Reportable 12/26/16 18:45 Hyposegmented Neuts Not Reportable 12/26/16 18:45 Hypogranular Neuts Not Reportable 12/26/16 18:45 Smudge Cells Not Reportable 12/26/16 18:45 Toxic Granulation Not Reportable 12/26/16 18:45 Toxic Vacuolation Not Reportable 12/26/16 18:45 Dohle Bodies Not Reportable 12/26/16 18:45 Pelger-Huet Anomaly Not Reportable 12/26/16 18:45 Shelby Rods Not Reportable 12/26/16 18:45 Platelet Estimate Appears normal 12/26/16 18:45 Clumped Platelets Not Reportable 12/26/16 18:45 Plt Clumps, EDTA Not Reportable 12/26/16 18:45 Large Platelets Not Reportable 12/26/16 18:45 Giant Platelets Not Reportable 12/26/16 18:45 Platelet Satelliting Not Reportable 12/26/16 18:45 Plt Morphology Comment Not Reportable 12/26/16 18:45 RBC Morphology Not Reportable 12/26/16 18:45 Dimorphic RBCs Not Reportable 12/26/16 18:45 Polychromasia Not Reportable 12/26/16 18:45 Hypochromasia 1+ 12/26/16 18:45 Poikilocytosis Not Reportable 12/26/16 18:45 Anisocytosis 1+ 12/26/16 18:45 Microcytosis Not Reportable 12/26/16 18:45 Macrocytosis Not Reportable 12/26/16 18:45 Spherocytes Not Reportable 12/26/16 18:45 Pappenheimer Bodies Not Reportable 12/26/16 18:45 Sickle Cells Not Reportable 12/26/16 18:45 Target Cells Not Reportable 12/26/16 18:45 Tear Drop Cells Not Reportable 12/26/16 18:45 Ovalocytes Not Reportable 12/26/16 18:45 Helmet Cells Not Reportable 12/26/16 18:45 Jar[place] Bodies Not Reportable 12/26/16 18:45 [place] Rings Not Reportable 12/26/16 18:45 [place] Cells Not Reportable 12/26/16 18:45 Bite Cells Not Reportable 12/26/16 18:45 Crenated Cell Not Reportable 12/26/16 18:45 Elliptocytes Not Reportable 12/26/16 18:45 Acanthocytes (Spur) Not Reportable 12/26/16 18:45 Rouleaux Not Reportable 12/26/16 18:45 Hemoglobin C Crystals Not Reportable 12/26/16 18:45 Schistocytes Not Reportable 12/26/16 18:45 Malaria parasites Not Reportable 12/26/16 18:45 Kyle Bodies Not Reportable 12/26/16 18:45 Hem Pathologist Commnt No 12/26/16 18:45 Sodium 135 mmol/L (137-145) L 12/31/16 07:35 Potassium 4.1 mmol/L (3.6-5.0) 12/31/16 07:35 Chloride 104.0 mmol/L (98-107) 12/31/16 07:35 Carbon Dioxide 18 mmol/L (22-30) L 12/31/16 07:35 Anion Gap 17 mmol/L 12/31/16 07:35 BUN 11 mg/dL (9-20) 12/31/16 07:35 Creatinine 0.9 mg/dL (0.8-1.5) 12/31/16 07:35 Estimated GFR > 60 ml/min 12/31/16 07:35 BUN/Creatinine Ratio 12.22 % 12/31/16 07:35 Glucose 98 mg/dL (75-100) 12/31/16 07:35 POC Glucose 108 (70-105) H 12/31/16 06:05 Lactic Acid 1.60 mmol/L (0.7-2.0) 12/26/16 18:53 Calcium 7.9 mg/dL (8.4-10.2) L 12/31/16 07:35 Total Bilirubin 0.60 mg/dL (0.1-1.2) 12/26/16 18:45 AST 54 units/L (5-40) H 12/26/16 18:45 ALT 30 units/L (7-56) 12/26/16 18:45 Alkaline Phosphatase 208 units/L (35-129) H 12/26/16 18:45 Total Creatine Kinase 67 units/L (55-170) 12/26/16 18:45 Troponin T 0.014 ng/mL (0.00-0.029) 12/26/16 18:45 C-Reactive Protein 9.70 mg/dL (0.00-1.30) H 12/28/16 15:55 Total Protein 9.6 g/dL (6.3-8.2) H 12/26/16 18:45 Albumin 3.2 g/dL (3.9-5) L 12/26/16 18:45 Albumin/Globulin Ratio 0.5 % 12/26/16 18:45 Lipase 15 units/L (13-60) 12/26/16 18:45 Urine Color Yellow (Yellow) 12/31/16 07:50 Urine Turbidity Cloudy (Clear) 12/31/16 07:50 Urine pH 5.0 (5.0-7.0) 12/31/16 07:50 Ur Specific [place] 1.009 (1.003-1.030) 12/31/16 07:50 Urine Protein <15 mg/dl mg/dL (Negative) 12/31/16 07:50 Urine Glucose (UA) >=500 mg/dL (Negative) 12/31/16 07:50 Urine Ketones Neg mg/dL (Negative) 12/31/16 07:50 Urine Blood Sm (Negative) 12/31/16 07:50 Urine Nitrite Neg (Negative) 12/31/16 07:50 Urine Bilirubin Neg (Negative) 12/31/16 07:50 Urine Urobilinogen < 2.0 mg/dL (<2.0) 12/31/16 07:50 Ur Leukocyte Esterase Lg (Negative) 12/31/16 07:50 Urine WBC (Auto) > 182.0 /HPF (0.0-6.0) H 12/31/16 07:50 Urine RBC (Auto) 76.0 /HPF (0.0-6.0) 12/31/16 07:50 Urine Bacteria (Auto) 2+ /HPF (Negative) 12/31/16 07:50 Urine WBC Clumps 3+ /HPF 12/26/16 20:20 Urine Mucus Few /HPF 12/26/16 20:20 Urine Yeast (Budding) 3+ /HPF 12/31/16 07:50 Salicylates < 0.3 mg/dL (2.8-20.0) L 12/26/16 18:53 Acetaminophen < 15.0 ug/mL (10.0-30.0) 12/26/16 18:53
--- NOTE | 2016-12-31 11:03 | Progress Note ---
Assessment and Plan Right pneumothorax. Prior f/u CXR showed failed to show any pneumothorax or evidence of additional barotrauma. History review showed that the patient did have a fall with trauma 2 days prior to admission so, it is conceivable that this might be related to his pneumothorax. Rt complicated Pyelonephritis. Completing antibiotics Recommendations: CXR prior to discharge Continue, complete antibiotics. May benefit from outpatient evaluation for COPD Nutritional support Will sign off. Feel free to reconsult if needed Subjective Date of service: 12/31/16 Principal diagnosis: pneumothorax, pyelonephritis Interval history: No SOB or respiratory complains Objective Vital Signs - 12hr 12/31/16 12/31/16 12/31/16 00:56 02:29 06:42 Temperature 97.9 F Pulse Rate 72 Respiratory 16 Rate Blood Pressure 128/74 116/58 168/89 O2 Sat by Pulse Oximetry 12/31/16 12/31/16 12/31/16 06:47 07:09 10:14 Temperature 97.6 F Pulse Rate 68 71 78 Respiratory 20 Rate Blood Pressure 168/89 127/75 139/76 O2 Sat by Pulse 99 Oximetry Constitutional: no acute distress, alert Eyes: non-icteric ENT: oropharynx moist Neck: supple, no lymphadenopathy, no JVD Ascultation: Bilateral: clear Cardiovascular: regular rate and rhythm Gastrointestinal: normoactive bowel sounds, non-tender, non-distended Integumentary: normal Extremities: no cyanosis, no edema Neurologic: normal mental status, non-focal exam, CN II-XII normal, motor strength normal and Psychiatric: anxious CBC and BMP: 12/31/16 05:06 12/31/16 07:35 Abnormal lab findings: Abnormal Labs 12/27/16 12/27/16 12/27/16 04:40 04:40 12:02 RBC 3.57 L Hgb 9.2 L Hct 27.1 L MCV 76 L MCH 26 L RDW 16.1 H Plt Count [place] % (Auto) 9.6 H Eos % (Auto) [place] # 0.9 H Seg Neutrophils % 73.4 H Sodium 125 L Chloride 89.8 L Carbon Dioxide 20 L BUN 34 H Glucose 289 H POC Glucose 354 H Calcium 8.2 L C-Reactive Protein Urine WBC (Auto) 12/27/16 12/27/16 12/28/16 17:16 21:07 03:49 RBC 3.56 L Hgb 9.0 L Hct 27.1 L MCV 76 L MCH 25 L RDW Plt Count [place] % (Auto) 14.4 H Eos % (Auto) [place] # 1.0 H Seg Neutrophils % Sodium Chloride Carbon Dioxide BUN Glucose POC Glucose 204 H 236 H Calcium C-Reactive Protein Urine WBC (Auto) 12/28/16 12/28/16 12/28/16 03:49 06:25 11:38 RBC Hgb Hct MCV MCH RDW Plt Count [place] % (Auto) Eos % (Auto) [place] # Seg Neutrophils % Sodium 127 L Chloride 95.3 L Carbon Dioxide 19 L BUN Glucose 178 H POC Glucose 200 H 240 H Calcium 7.8 L C-Reactive Protein Urine WBC (Auto) 12/28/16 12/28/16 12/28/16 15:45 15:55 21:48 RBC Hgb Hct MCV MCH RDW Plt Count [place] % (Auto) Eos % (Auto) [place] # Seg Neutrophils % Sodium Chloride Carbon Dioxide BUN Glucose POC Glucose 315 H 333 H Calcium C-Reactive Protein 9.70 H Urine WBC (Auto) 12/29/16 12/29/16 12/29/16 06:31 11:28 16:18 RBC Hgb Hct MCV MCH RDW Plt Count [place] % (Auto) Eos % (Auto) [place] # Seg Neutrophils % Sodium Chloride Carbon Dioxide BUN Glucose POC Glucose 250 H 309 H 390 H Calcium C-Reactive Protein Urine WBC (Auto) 12/29/16 12/30/16 12/30/16 21:00 03:36 03:36 RBC 3.52 L Hgb 9.0 L Hct 26.7 L MCV 76 L MCH 26 L RDW 15.7 H Plt Count [place] % (Auto) 7.5 H Eos % (Auto) [place] # Seg Neutrophils % Sodium 133 L Chloride Carbon Dioxide 19 L BUN Glucose 162 H POC Glucose 291 H Calcium 7.9 L C-Reactive Protein Urine WBC (Auto) 12/30/16 12/30/16 12/30/16 06:14 11:10 17:03 RBC Hgb Hct MCV MCH RDW Plt Count [place] % (Auto) Eos % (Auto) [place] # Seg Neutrophils % Sodium Chloride Carbon Dioxide BUN Glucose POC Glucose 192 H 237 H 199 H Calcium C-Reactive Protein Urine WBC (Auto) 12/30/16 12/31/16 12/31/16 21:20 05:06 06:05 RBC Hgb 9.2 L Hct 28.4 L MCV 77 L MCH 25 L RDW 15.7 H Plt Count 445 H [place] % (Auto) 7.9 H Eos % (Auto) 5.0 H [place] # Seg Neutrophils % Sodium Chloride Carbon Dioxide BUN Glucose POC Glucose 318 H 108 H Calcium C-Reactive Protein Urine WBC (Auto) 12/31/16 12/31/16 07:35 07:50 RBC Hgb Hct MCV MCH RDW Plt Count [place] % (Auto) Eos % (Auto) [place] # Seg Neutrophils % Sodium 135 L Chloride Carbon Dioxide 18 L BUN Glucose POC Glucose Calcium 7.9 L C-Reactive Protein Urine WBC (Auto) > 182.0 H
--- NOTE | 2016-12-31 12:13 | XRay Report ---
Single view chest: Compared to 12/29/16. History: Pneumothorax followup. Findings: Normal cardiomediastinal silhouette. Trachea is midline. No consolidation, pneumothorax or pleural effusion. Impression: No definite evidence of pneumothorax.
--- NOTE | 2016-12-31 13:24 | Progress Note ---
Assessment and Plan Assessment: 1) Sepsis: resolved. Etiology most likely UTI. 2) Complicated UTI: right sided pyelonephritis -CT showed + gas bubbles in the right renal collecting system -CRP=9.7 -Urine cx showed mixed bacteria -US renal showed right kidney and bladder bubbles and bladder debris -repeat UA still infected 3) DM-uncontrolled - better 4) Hyponatremia - better 5) AMS - resolved; from UTI/hyponatremia 6) Recent fall 7) Right sided pneumothorax? traumatic due to recent fall. -CT abdomen and pelvis showed moderate right pneumothorax. -CXR repeat normal 8) Malnutrition 9) MIYA Plan: -f/u repeat urine culture -continue zosyn -upon discharge will do cipro 750 mg po q12h total 14 days from 12/27 until 01/09. Cipro is free at [facility] pharmacy. I ll be rounding on Tuesday. Call me if any question. Thank you Dr Burgess for your consultation, will follow up with you. Catrina Pittman MD Infectious Diseases Specialist [facility] ([facility]) M [phone] O [phone] Subjective Date of service: 12/31/16 Principal diagnosis: pneumothorax, pyelonephritis Interval history: Feels better.No fever. No urinary symptoms. Microbiology: Blood cultures: 12/26 [employer] INS[employer] 1 of 4 Urine cultures: 12/26 10-100k mixed Current Antimicrobials: Zosyn 12/27 Objective - Exam Narrative Exam: General appearance: Alert in NAD, conversant Eyes: anicteric sclerae HENT: Atraumatic; oropharynx clear + poor dentition Neck: Trachea midline; supple, no thyromegaly or lymphadenopathy Lungs: bibasilar crackles CV: RRR, no murmurs Abdomen: Soft, +TTP right sided + Right CV tenderness Extremities: No peripheral edema or extremity lymphadenopathy Skin: Normal temperature, turgor and texture; no rash, ulcers or subcutaneous nodules Psych: Appropriate affect, alert and oriented to person, place and time. Neuro: alert and oriented x 3. Moving all extermities Lines: No CVL / PICC - Constitutional Vitals: Vital Signs Temp Pulse Resp BP Pulse Ox 97.6 F 78 20 139/76 99 12/31/16 07:09 12/31/16 10:14 12/31/16 07:09 12/31/16 10:14 12/31/16 07:09 Temperature -Last 24 Hours Temperature 97.6 F Temperature 97.9 F Temperature 98.0 F Temperature 98.7 F - Labs CBC & Chem 7: 12/31/16 05:06 12/31/16 07:35 Labs: Abnormal lab results 12/30/16 12/30/16 12/31/16 Range/Units 17:03 21:20 05:06 Hgb 9.2 L (11.8-15.2) gm/dl Hct 28.4 L (35.5-45.6) % MCV 77 L (84-94) fl MCH 25 L (28-32) pg RDW 15.7 H (13.2-15.2) % Plt Count 445 H (140-440) K/mm3 [place] % (Auto) 7.9 H (0.0-7.3) % Eos % (Auto) 5.0 H (0.0-4.3) % Sodium (137-145) mmol/L Carbon Dioxide (22-30) mmol/L POC Glucose 199 H 318 H (70-105) Calcium (8.4-10.2) mg/dL Urine WBC (Auto) (0.0-6.0) /HPF 12/31/16 12/31/16 12/31/16 Range/Units 06:05 07:35 07:50 Hgb (11.8-15.2) gm/dl Hct (35.5-45.6) % MCV (84-94) fl MCH (28-32) pg RDW (13.2-15.2) % Plt Count (140-440) K/mm3 [place] % (Auto) (0.0-7.3) % Eos % (Auto) (0.0-4.3) % Sodium 135 L (137-145) mmol/L Carbon Dioxide 18 L (22-30) mmol/L POC Glucose 108 H (70-105) Calcium 7.9 L (8.4-10.2) mg/dL Urine WBC (Auto) > 182.0 H (0.0-6.0) /HPF
[2016-12-31] MEDS: LEVEMIR SUB-Q SCH (22:29)
[2016-12-31] MEDS: TYLENOL PO PRN (22:30)
[2017-01-01] MEDS: APRESOLINE IV SCH ×3 (01:00→09:21)
[2017-01-01 05:46] LABS: Eosinophils % (Auto) 6.3 % (0.0-4.3); Hematocrit 27.9 % (35.5-45.6); Hemoglobin 9.2 gm/dl (11.8-15.2); Mean Corpuscular HGB Conc 33 % (32-34); Mean Corpuscular Volume 77 fl (84-94); Platelet Count 496 K/mm3 (140-440); Red Blood Count 3.64 M/mm3 (3.65-5.03); Red Cell Distribution Width 15.7 % (13.2-15.2); White Blood Count 5.9 K/mm3 (4.5-11.0)
[2017-01-01 06:04] LABS: Mean Corpuscular Hemoglobin 25 pg (28-32)
[2017-01-01 06:48] LABS: Anion Gap 15 mmol/L; Blood Urea Nitrogen 9 mg/dL (9-20); Calcium 7.9 mg/dL (8.4-10.2); Carbon Dioxide 20 mmol/L (22-30); Chloride 105.3 mmol/L (98-107); Glucose 180 mg/dL (75-100); Sodium 136 mmol/L (137-145)
[2017-01-01] MEDS: ZOSYN/NS 4.5GM/100ML 4.5 GM/100 ML VIAL IV SCH ×3 (06:48→22:48)
[2017-01-01] MEDS: NACL 0.9% 1000 ML 1,000 ML IV SCH (06:48)
[2017-01-01] MEDS: NOVOLOG SUB-Q SCH ×4 (07:28→22:47)
[2017-01-01] MEDS: LOVENOX SUB-Q SCH (09:20)
--- NOTE | 2017-01-01 11:58 | Progress Note ---
Assessment and Plan Assessment and plan: Emphysematous pyelonephritis, sepsis - Continue on Zosyn - Patient is on IV fluids and pain management -ID following -repeat urinalysis/urine culture. -Cipro 750 mg by mouth every 12 hours at discharge per ID Right pneumothorax. Etiology likely secondary to recent fall. -Pulmonary following. -Follow serial chest x-ray. Diabetes mellitus 2, uncontrolled -Patient is on high-dose sliding scale insulin -Accu-Chek and will adjust insulin as needed -Continued lantus at bedtime and increased to 12 units. Hyponatremia. -Continue normal saline IV fluid hydration. Resolving. Hypertension - On when necessary hydralazine DVT prophylaxis - Lovenox Disposition - Anticipate discharge in a.m. if okay will consultants. History Interval history: Patient still complains of right flank pain. Hospitalist Physical - Constitutional Vitals: Temp Pulse Resp BP Pulse Ox 97.6 F 74 20 131/78 98 01/01/17 07:25 01/01/17 07:25 01/01/17 07:25 01/01/17 07:25 01/01/17 07:25 General appearance: Present: no acute distress, well-nourished - EENT Eyes: Present: PERRL, EOM intact ENT: hearing intact, clear oral mucosa, dentition normal - Neck Neck: Present: supple, normal ROM - Respiratory Respiratory effort: normal Respiratory: bilateral: CTA - Cardiovascular Rhythm: regular Heart Sounds: Present: S1 & S2. Absent: gallop, rub - Extremities Extremities: no ischemia, No edema, Full ROM - Abdominal General gastrointestinal: soft, non-tender, non-distended, normal bowel sounds - Integumentary Integumentary: Present: clear, warm, dry - Neurologic Neurologic: CNII-XII intact, moves all extremities Results - Labs CBC & Chem 7: 01/01/17 04:22 01/01/17 06:15 Labs: Laboratory Last Values WBC 5.9 K/mm3 (4.5-11.0) 01/01/17 04:22 RBC 3.64 M/mm3 (3.65-5.03) L 01/01/17 04:22 Hgb 9.2 gm/dl (11.8-15.2) L 01/01/17 04:22 Hct 27.9 % (35.5-45.6) L 01/01/17 04:22 MCV 77 fl (84-94) L 01/01/17 04:22 MCH 25 pg (28-32) L 01/01/17 04:22 MCHC 33 % (32-34) 01/01/17 04:22 RDW 15.7 % (13.2-15.2) H 01/01/17 04:22 Plt Count 496 K/mm3 (140-440) H 01/01/17 04:22 Lymph % (Auto) 29.3 % (13.4-35.0) 01/01/17 04:22 [place] % (Auto) 7.4 % (0.0-7.3) H 01/01/17 04:22 Eos % (Auto) 6.3 % (0.0-4.3) H 01/01/17 04:22 Baso % (Auto) 1.0 % (0.0-1.8) 01/01/17 04:22 Lymph # 1.7 K/mm3 (1.2-5.4) 01/01/17 04:22 [place] # 0.4 K/mm3 (0.0-0.8) 01/01/17 04:22 Eos # 0.4 K/mm3 (0.0-0.4) 01/01/17 04:22 Baso # 0.1 K/mm3 (0.0-0.1) 01/01/17 04:22 Add Manual Diff Complete 12/26/16 18:45 Total Counted 100 12/26/16 18:45 Seg Neutrophils % 56.0 % (40.0-70.0) 01/01/17 04:22 Seg Neuts % (Manual) 82.0 % (40.0-70.0) H 12/26/16 18:45 Band Neutrophils % 0 % 12/26/16 18:45 Lymphocytes % (Manual) 13.0 % (13.4-35.0) L 12/26/16 18:45 Reactive Lymphs % (Man) 0 % 12/26/16 18:45 Monocytes % (Manual) 3.0 % (0.0-7.3) 12/26/16 18:45 Eosinophils % (Manual) 0 % (0.0-4.3) 12/26/16 18:45 Basophils % (Manual) 0 % (0.0-1.8) 12/26/16 18:45 Metamyelocytes % 2.0 % 12/26/16 18:45 Myelocytes % 0 % 12/26/16 18:45 Promyelocytes % 0 % 12/26/16 18:45 Blast Cells % 0 % 12/26/16 18:45 Nucleated RBC % Not Reportable 12/26/16 18:45 Seg Neutrophils # 3.3 K/mm3 (1.8-7.7) 01/01/17 04:22 Seg Neutrophils # Man 10.3 K/mm3 (1.8-7.7) H 12/26/16 18:45 Band Neutrophils # 0.0 K/mm3 12/26/16 18:45 Lymphocytes # (Manual) 1.6 K/mm3 (1.2-5.4) 12/26/16 18:45 Abs React Lymphs (Man) 0.0 K/mm3 12/26/16 18:45 Monocytes # (Manual) 0.4 K/mm3 (0.0-0.8) 12/26/16 18:45 Eosinophils # (Manual) 0.0 K/mm3 (0.0-0.4) 12/26/16 18:45 Basophils # (Manual) 0.0 K/mm3 (0.0-0.1) 12/26/16 18:45 Metamyelocytes # 0.3 K/mm3 12/26/16 18:45 Myelocytes # 0.0 K/mm3 12/26/16 18:45 Promyelocytes # 0.0 K/mm3 12/26/16 18:45 Blast Cells # 0.0 K/mm3 12/26/16 18:45 WBC Morphology Not Reportable 12/26/16 18:45 Hypersegmented Neuts Not Reportable 12/26/16 18:45 Hyposegmented Neuts Not Reportable 12/26/16 18:45 Hypogranular Neuts Not Reportable 12/26/16 18:45 Smudge Cells Not Reportable 12/26/16 18:45 Toxic Granulation Not Reportable 12/26/16 18:45 Toxic Vacuolation Not Reportable 12/26/16 18:45 [place]ohle Bodies Not Reportable 12/26/16 18:45 Pelger-Huet Anomaly Not Reportable 12/26/16 18:45 [place] Rods Not Reportable 12/26/16 18:45 Platelet Estimate Appears normal 12/26/16 18:45 Clumped Platelets Not Reportable 12/26/16 18:45 Plt Clumps, EDTA Not Reportable 12/26/16 18:45 Large Platelets Not Reportable 12/26/16 18:45 Giant Platelets Not Reportable 12/26/16 18:45 Platelet Satelliting Not Reportable 12/26/16 18:45 Plt Morphology Comment Not Reportable 12/26/16 18:45 RBC Morphology Not Reportable 12/26/16 18:45 Dimorphic RBCs Not Reportable 12/26/16 18:45 Polychromasia Not Reportable 12/26/16 18:45 Hypochromasia 1+ 12/26/16 18:45 Poikilocytosis Not Reportable 12/26/16 18:45 Anisocytosis 1+ 12/26/16 18:45 Microcytosis Not Reportable 12/26/16 18:45 Macrocytosis Not Reportable 12/26/16 18:45 Spherocytes Not Reportable 12/26/16 18:45 Pappenheimer Bodies Not Reportable 12/26/16 18:45 Sickle Cells Not Reportable 12/26/16 18:45 Target Cells Not Reportable 12/26/16 18:45 Tear Drop Cells Not Reportable 12/26/16 18:45 Ovalocytes Not Reportable 12/26/16 18:45 Helmet Cells Not Reportable 12/26/16 18:45 [place] Bodies Not Reportable 12/26/16 18:45 [place] Rings Not Reportable 12/26/16 18:45 [place] Cells Not Reportable 12/26/16 18:45 Bite Cells Not Reportable 12/26/16 18:45 Crenated Cell Not Reportable 12/26/16 18:45 Elliptocytes Not Reportable 12/26/16 18:45 Acanthocytes (Spur) Not Reportable 12/26/16 18:45 Rouleaux Not Reportable 12/26/16 18:45 Hemoglobin C Crystals Not Reportable 12/26/16 18:45 Schistocytes Not Reportable 12/26/16 18:45 Malaria parasites Not Reportable 12/26/16 18:45 Kyle Bodies Not Reportable 12/26/16 18:45 Hem Pathologist Commnt No 12/26/16 18:45 Sodium 136 mmol/L (137-145) L 01/01/17 06:15 Potassium 4.0 mmol/L (3.6-5.0) 01/01/17 06:15 Chloride 105.3 mmol/L (98-107) 01/01/17 06:15 Carbon Dioxide 20 mmol/L (22-30) L 01/01/17 06:15 Anion Gap 15 mmol/L 01/01/17 06:15 BUN 9 mg/dL (9-20) 01/01/17 06:15 Creatinine 0.9 mg/dL (0.8-1.5) 01/01/17 06:15 Estimated GFR > 60 ml/min 01/01/17 06:15 BUN/Creatinine Ratio 10.00 % 01/01/17 06:15 Glucose 180 mg/dL (75-100) H 01/01/17 06:15 POC Glucose 149 (70-105) H 01/01/17 11:24 Lactic Acid 1.60 mmol/L (0.7-2.0) 12/26/16 18:53 Calcium 7.9 mg/dL (8.4-10.2) L 01/01/17 06:15 Total Bilirubin 0.60 mg/dL (0.1-1.2) 12/26/16 18:45 AST 54 units/L (5-40) H 12/26/16 18:45 ALT 30 units/L (7-56) 12/26/16 18:45 Alkaline Phosphatase 208 units/L (35-129) H 12/26/16 18:45 Total Creatine Kinase 67 units/L (55-170) 12/26/16 18:45 Troponin T 0.014 ng/mL (0.00-0.029) 12/26/16 18:45 C-Reactive Protein 9.70 mg/dL (0.00-1.30) H 12/28/16 15:55 Total Protein 9.6 g/dL (6.3-8.2) H 12/26/16 18:45 Albumin 3.2 g/dL (3.9-5) L 12/26/16 18:45 Albumin/Globulin Ratio 0.5 % 12/26/16 18:45 Lipase 15 units/L (13-60) 12/26/16 18:45 Urine Color Yellow (Yellow) 12/31/16 07:50 Urine Turbidity Cloudy (Clear) 12/31/16 07:50 Urine pH 5.0 (5.0-7.0) 12/31/16 07:50 Ur Specific [place] 1.009 (1.003-1.030) 12/31/16 07:50 Urine Protein <15 mg/dl mg/dL (Negative) 12/31/16 07:50 Urine Glucose (UA) >=500 mg/dL (Negative) 12/31/16 07:50 Urine Ketones Neg mg/dL (Negative) 12/31/16 07:50 Urine Blood Sm (Negative) 12/31/16 07:50 Urine Nitrite Neg (Negative) 12/31/16 07:50 Urine Bilirubin Neg (Negative) 12/31/16 07:50 Urine Urobilinogen < 2.0 mg/dL (<2.0) 12/31/16 07:50 Ur Leukocyte Esterase Lg (Negative) 12/31/16 07:50 Urine WBC (Auto) > 182.0 /HPF (0.0-6.0) H 12/31/16 07:50 Urine RBC (Auto) 76.0 /HPF (0.0-6.0) 12/31/16 07:50 Urine Bacteria (Auto) 2+ /HPF (Negative) 12/31/16 07:50 Urine WBC Clumps 3+ /HPF 12/26/16 20:20 Urine Mucus Few /HPF 12/26/16 20:20 Urine Yeast (Budding) 3+ /HPF 12/31/16 07:50 Salicylates < 0.3 mg/dL (2.8-20.0) L 12/26/16 18:53 Acetaminophen < 15.0 ug/mL (10.0-30.0) 12/26/16 18:53
[2017-01-01] MEDS: NORMODYNE PO SCH ×2 (14:53→22:49)
[2017-01-01] MEDS ORDERED: LEVEMIR SUB-Q SCH (22:00)
[2017-01-02 04:36] LABS: Eosinophils % (Auto) 5.6 % (0.0-4.3); Hematocrit 26.3 % (35.5-45.6); Hemoglobin 8.9 gm/dl (11.8-15.2); Mean Corpuscular HGB Conc 34 % (32-34); Mean Corpuscular Volume 76 fl (84-94); Platelet Count 533 K/mm3 (140-440); Red Blood Count 3.44 M/mm3 (3.65-5.03); Red Cell Distribution Width 15.9 % (13.2-15.2); White Blood Count 6.4 K/mm3 (4.5-11.0)
[2017-01-02 04:38] LABS: Mean Corpuscular Hemoglobin 26 pg (28-32)
[2017-01-02] MEDS: ZOSYN/NS 4.5GM/100ML 4.5 GM/100 ML VIAL IV SCH ×2 (05:16→14:00)
[2017-01-02 09:06] LABS: Anion Gap 15 mmol/L; Blood Urea Nitrogen 11 mg/dL (9-20); Calcium 8.5 mg/dL (8.4-10.2); Carbon Dioxide 24 mmol/L (22-30); Chloride 100.4 mmol/L (98-107); Glucose 210 mg/dL (75-100); Potassium 4.4 mmol/L (3.6-5.0); Sodium 135 mmol/L (137-145)
[2017-01-02] MEDS: NORMODYNE PO SCH (09:17)
[2017-01-02] MEDS: NOVOLOG SUB-Q SCH ×2 (09:18→12:48)
[2017-01-02] MEDS: LOVENOX SUB-Q SCH (09:18)
--- NOTE | 2017-01-02 09:38 | Discharge Summary ---
Providers - Providers Date of Admission: 12/26/16 23:12 Date of discharge: 01/02/17 Attending physician: CARL SANCHEZ 12/28/16 10:53 Consult to Physician [CONS] Routine Consulting Provider: ROCIO HOANG Reason For Exam: pyelonephritis Place consult to:: in-house Notified:: yes Primary care physician: HEEL CUTTER Hospitalization Reason for admission: pyelonephritis Condition: Fair Hospital course: This is a 51-year-old male with past medical history diabetes mellitus type 2, hypertension and previous left great toe amputation who was admitted on 2016 for complaints of worsening right-sided abdominal pain. Patient was admitted with diagnosis of complicated UTI/right sided pyelonephritis, sepsis, hyponatremia and acute kidney injury secondary to ATN from sepsis. The acute kidney injury and hyponatremia resolved with IV fluid hydration of normal saline. Patient was seen by infectious disease in consultation. CT scan revealed gas bubbles in the right renal collecting system and renal ultrasound showed right kidney and bladder bubbles and bladder debris. Also, CT of abdomen revealed a right sided pneumothorax. Etiology was felt to be secondary to trauma from a recent fall. The pneumothorax was managed conservatively. Patient was seen by pulmonary consultation. Follow-up checks x-ray failed to show any pneumothorax or evidence of additional barotrauma. Patient received IV antibiotics with slow but progressive improvement throughout hospitalization. Repeat urine culture revealed Blood cultures were found to essentially negative. Patient did have coag negative staph which was felt to be a contaminant. Patient's pain resolved and he remained afebrile with no leukocytosis. Patient is felt to have received maximal hospital benefit. Patient will be discharged home. Dedicated discharge time 32 minutes. Disposition: [id number] TO HOME OR SELFCARE Time spent for discharge: 32 - Discharge Diagnoses (1) Sepsis Status: Acute Qualifiers: Sepsis type: S (2) Pyelonephritis Status: Acute (3) MIYA (acute kidney injury) Status: Acute (4) ATN (acute tubular necrosis) Status: Acute (5) Pneumothorax Status: Acute Qualifiers: Pneumothorax type: P Encounter type: E (6) Hyponatremia Status: Acute Core Measure Documentation - Palliative Care Palliative Care/ Comfort Measures: Not Applicable - Core Measures Any of the following diagnoses?: none Exam - Constitutional Vitals: Temp Pulse Resp BP Pulse Ox 97.5 F L 70 20 164/77 98 01/02/17 08:46 01/02/17 01:06 01/02/17 08:46 01/02/17 08:46 01/02/17 01:06 General appearance: Present: no acute distress, well-nourished - EENT Eyes: Present: PERRL ENT: hearing intact, clear oral mucosa - Neck Neck: Present: supple, normal ROM - Respiratory Respiratory effort: normal Respiratory: bilateral: CTA - Cardiovascular Heart Sounds: Present: S1 & S2. Absent: rub, click - Extremities Extremities: pulses symmetrical, No edema Peripheral Pulses: within normal limits - Abdominal General gastrointestinal: Present: soft, non-tender, non-distended, normal bowel sounds Male genitourinary: Present: normal - Integumentary Integumentary: Present: clear, warm, dry - Musculoskeletal Musculoskeletal: gait normal, strength equal bilaterally - Psychiatric Psychiatric: appropriate mood/affect, intact judgment & insight - Neurologic Neurologic: CNII-XII intact, moves all extremities Plan Activity: no restrictions Weight Bearing Status: Full Weight Bearing Diet: diabetic Follow up with: PRIMARY CAREMD [Primary Care Provider] - 3-5 Days ROCIO HOANG MD [Staff Physician] - 7 Days Prescriptions: Ciprofloxacin HCl [Ciprofloxacin TAB] 750 mg PO BID #28 tablet Insulin Detemir [Levemir] 12 units SUB-Q QHS #30 units Labetalol [Normodyne TAB] 200 mg PO BID #60 tablet oxyCODONE /ACETAMINOPHEN [Percocet 5/325] 1 tab PO Q4HR #20 tab
[2017-01-02 15:42] VITALS: BP 194/91
== END 2017-01-02 18:00 | disposition home or self-care (01) | DRG 871 ==
LOC: ED 17:50 → 3A 23:12
PROVIDERS: ADMIT Internal Medicine; ATTEND Hospitalist
DX: A41.9 Sepsis, unspecified organism (principal); N17.0 Acute kidney failure with tubular necrosis; E87.1 Hypo-osmolality and hyponatremia; N12 Tubulo-interstitial nephritis, not specified as acute or chronic; J93.9 Pneumothorax, unspecified; E46 Unspecified protein-calorie malnutrition; F17.200 Nicotine dependence, unspecified, uncomplicated; I12.9 Hypertensive chronic kidney disease with stage 1 through stage 4 chronic kidney disease, or unspecified chronic kidney disease; E11.22 Type 2 diabetes mellitus with diabetic chronic kidney disease; N18.9 Chronic kidney disease, unspecified; Z82.49 Family history of ischemic heart disease and other diseases of the circulatory system; Z89.412 Acquired absence of left great toe; E11.65 Type 2 diabetes mellitus with hyperglycemia; Z68.20 Body mass index [BMI] 20.0-20.9, adult
CPT/HCPCS: 36415; 70450; 71010; 71250; 72125; 74176; 76770; 80048; 80053; 80320; 81001; 82140; 82550; 82962; 83690; 84484; 85007; 85025; 86140; 87040; 87086; 93005; 93010; 94760; 96365; G0480; J0360; J0696; J1650; J1815; J1818; J2543; J7030

== ENCOUNTER 2017-01-09 09:39 | Inpatient (IN) | payer OTHER ==
[2017-01-09] MEDS ORDERED: NARCAN 2 MG/2 ML ONE (09:46)
[2017-01-09] MEDS ORDERED: NACL 0.9% 1000 ML 2,000 ML ONE ×2 (09:53→22:01)
[2017-01-09] MEDS ORDERED: NACL 0.9% 1000 ML 1,000 ML IV ONE ×4 (09:59→22:22)
--- NOTE | 2017-01-09 10:11 | Emergency Department Report ---
HPI - General Time Seen by Provider: 01/09/17 09:51 - HPI HPI: Room 23 The patient is a 51-year-old male presenting with a chief complaint of unresponsiveness. Per EMS the patient's neighbor called 911 after finding the patient unresponsive on the floor. EMS states they arrived to find the patient unresponsive on his floor covered in ants with insulin syringes around him and a bottle of atenolol which still had many pills remaining. EMS states the patient was found to be hypoglycemic at 21 and was administered D5 approximate 500 mls during transport (D50 was not available) without change in status. Upon arrival to the ED the patient was administered 2 mg of Narcan again without change status. Patient's Accu-Chek in the ED is found to be greater than 100 and subsequently the decision for RSI was made Location: Mental state Duration: Above, unknown Quality: Unresponsive Severity: Severe Modifying factors: [see above] Context: [see above] Mode of transportation: EMS ED Past Medical Hx - Past Medical History Additional medical history: Unknown - Surgical History Additional Surgical History: unknown - Family History Family history: no significant - Social History Smoking Status: Unknown if ever smoked Substance Use Type: None - Medications Home Medications: Home Medications Medication Instructions Recorded Confirmed Last Taken Type Ciprofloxacin HCl [Ciprofloxacin 750 mg PO BID #28 tablet 01/02/17 Unknown Rx TAB] Insulin Detemir [Levemir] 12 units SUB-Q QHS #30 units 01/02/17 Unknown Rx Labetalol [Normodyne TAB] 200 mg PO BID #60 tablet 01/02/17 Unknown Rx oxyCODONE /ACETAMINOPHEN [Percocet 1 tab PO Q4HR #20 tab 01/02/17 Unknown Rx 5/325] ED Review of Systems ROS: Stated complaint: UNRESPONSIVE Other details as noted in HPI Comment: Unobtainable due to pts medical conditions Physical Exam - Physical Exam Physical Exam: GENERAL: The patient is well-developed well-nourished []. [] HEENT: Normocephalic. Atraumatic. Patient with thick white mucus draining from the nose gurgling respirations NECK: Supple. No meningitic signs are noted. There is no adenopathy noted. CHEST/LUNGS: Gurgling respirations. Breath sounds bilaterally HEART/CARDIOVASCULAR: Regular. There is no tachycardia. There is no gallop rub or murmur. ABDOMEN: Abdomen is soft, . There is no abdominal distention. SKIN: There are multiple punctate lesions along the upper torso and upper extremities. There is no diaphoresis. NEURO: The patient is moaning occasionally but does not respond to sternal rub. Patient does not make eye contact. GCS 8 MUSCULOSKELETAL: There is no evidence of acute injury. - Intubation Time Out Performed: Yes Sedative: Versed Mg Given: 5 Paralytic: Succinylcholine Mg Given: 100 Laryngoscope: Supriya Size: 3 ET Tube Size: 8 Tube Secured Location: lips Tube Placement Confirmation: visualized tube passing t, equal breath sounds bilat, confirmation by capnometr Patient Tolerated Procedure: no complications Intubation Complications: none ED Medical Decision Making - Lab Data Result diagrams: 01/09/17 10:16 01/09/17 10:16 Laboratory Tests 01/09/17 01/09/17 01/09/17 10:16 10:16 10:16 WBC 8.6 RBC 3.71 Hgb 9.7 L Hct 28.4 L MCV 76 L MCH 26 L MCHC 34 RDW 17.2 H Plt Count 448 H Lymph % (Auto) 15.2 Park % (Auto) 4.9 Eos % (Auto) 0.2 Baso % (Auto) 0.2 Lymph # 1.3 Park # 0.4 Eos # 0.0 Baso # 0.0 Seg Neutrophils % 79.5 H Seg Neutrophils # 6.8 PT 14.4 INR 1.07 APTT 39.6 H POC ABG pH POC ABG pCO2 POC ABG pO2 POC ABG HCO3 POC ABG Total CO2 POC ABG O2 Sat POC ABG Base Excess VBG pH FiO2 Sodium 132 L Potassium 4.7 Chloride 96.7 L Carbon Dioxide 21 L Anion Gap 19 BUN 34 H Creatinine 0.8 Estimated GFR > 60 BUN/Creatinine Ratio 42.50 Glucose 87 Lactic Acid Calcium 8.3 L Magnesium Total Bilirubin 0.30 AST 25 ALT 17 Alkaline Phosphatase 151 H Ammonia Total Creatine Kinase 135 CK-MB (CK-2) 7.1 H CK-MB (CK-2) Rel Index 5.2 H Troponin T < 0.010 NT-Pro-B Natriuret Pep 602.9 Total Protein 8.2 Albumin 3.3 L Albumin/Globulin Ratio 0.7 TSH Free T4 Urine Color Urine Turbidity Urine pH Ur Specific [place] Urine Protein Urine Glucose (UA) Urine Ketones Urine Blood Urine Nitrite Urine Bilirubin Urine Urobilinogen Ur Leukocyte Esterase Urine WBC (Auto) Urine RBC (Auto) Urine Bacteria (Auto) Salicylates Urine Opiates Screen Urine Methadone Screen Acetaminophen Ur Barbiturates Screen Ur Phencyclidine Scrn Ur Amphetamines Screen U Benzodiazepines Scrn Urine Cocaine Screen U Marijuana (THC) Screen Drugs of Abuse Note Plasma/Serum Alcohol 01/09/17 01/09/17 01/09/17 10:16 10:16 10:16 WBC RBC Hgb Hct MCV MCH MCHC RDW Plt Count Lymph % (Auto) Park % (Auto) Eos % (Auto) Baso % (Auto) Lymph # Park # Eos # Baso # Seg Neutrophils % Seg Neutrophils # PT INR APTT POC ABG pH POC ABG pCO2 POC ABG pO2 POC ABG HCO3 POC ABG Total CO2 POC ABG O2 Sat POC ABG Base Excess VBG pH FiO2 Sodium Potassium Chloride Carbon Dioxide Anion Gap BUN Creatinine Estimated GFR BUN/Creatinine Ratio Glucose Lactic Acid 1.00 Calcium Magnesium Total Bilirubin AST ALT Alkaline Phosphatase Ammonia 35.0 Total Creatine Kinase CK-MB (CK-2) CK-MB (CK-2) Rel Index Troponin T NT-Pro-B Natriuret Pep Total Protein Albumin Albumin/Globulin Ratio TSH 52.800 H Free T4 0.78 Urine Color Urine Turbidity Urine pH Ur Specific [place] Urine Protein Urine Glucose (UA) Urine Ketones Urine Blood Urine Nitrite Urine Bilirubin Urine Urobilinogen Ur Leukocyte Esterase Urine WBC (Auto) Urine RBC (Auto) Urine Bacteria (Auto) Salicylates Urine Opiates Screen Urine Methadone Screen Acetaminophen Ur Barbiturates Screen Ur Phencyclidine Scrn Ur Amphetamines Screen U Benzodiazepines Scrn Urine Cocaine Screen U Marijuana (THC) Screen Drugs of Abuse Note Plasma/Serum Alcohol 01/09/17 01/09/17 01/09/17 10:16 10:16 10:16 WBC RBC Hgb Hct MCV MCH MCHC RDW Plt Count Lymph % (Auto) Park % (Auto) Eos % (Auto) Baso % (Auto) Lymph # Park # Eos # Baso # Seg Neutrophils % Seg Neutrophils # PT INR APTT POC ABG pH POC ABG pCO2 POC ABG pO2 POC ABG HCO3 POC ABG Total CO2 POC ABG O2 Sat POC ABG Base Excess VBG pH 7.284 L FiO2 Sodium Potassium Chloride Carbon Dioxide Anion Gap BUN Creatinine Estimated GFR BUN/Creatinine Ratio Glucose Lactic Acid Calcium Magnesium Total Bilirubin AST ALT Alkaline Phosphatase Ammonia Total Creatine Kinase CK-MB (CK-2) CK-MB (CK-2) Rel Index Troponin T NT-Pro-B Natriuret Pep Total Protein Albumin Albumin/Globulin Ratio TSH Free T4 Urine Color Urine Turbidity Urine pH Ur Specific [place] Urine Protein Urine Glucose (UA) Urine Ketones Urine Blood Urine Nitrite Urine Bilirubin Urine Urobilinogen Ur Leukocyte Esterase Urine WBC (Auto) Urine RBC (Auto) Urine Bacteria (Auto) Salicylates < 0.3 L Urine Opiates Screen Urine Methadone Screen Acetaminophen < 15.0 Ur Barbiturates Screen Ur Phencyclidine Scrn Ur Amphetamines Screen U Benzodiazepines Scrn Urine Cocaine Screen U Marijuana (THC) Screen Drugs of Abuse Note Plasma/Serum Alcohol 01/09/17 01/09/17 01/09/17 10:16 10:16 10:23 WBC RBC Hgb Hct MCV MCH MCHC RDW Plt Count Lymph % (Auto) Park % (Auto) Eos % (Auto) Baso % (Auto) Lymph # Park # Eos # Baso # Seg Neutrophils % Seg Neutrophils # PT INR APTT POC ABG pH POC ABG pCO2 POC ABG pO2 POC ABG HCO3 POC ABG Total CO2 POC ABG O2 Sat POC ABG Base Excess VBG pH FiO2 Sodium Potassium Chloride Carbon Dioxide Anion Gap BUN Creatinine Estimated GFR BUN/Creatinine Ratio Glucose Lactic Acid Calcium Magnesium 2.10 Total Bilirubin AST ALT Alkaline Phosphatase Ammonia Total Creatine Kinase CK-MB (CK-2) CK-MB (CK-2) Rel Index Troponin T NT-Pro-B Natriuret Pep Total Protein Albumin Albumin/Globulin Ratio TSH Free T4 Urine Color Yellow Urine Turbidity Clear Urine pH 6.0 Ur Specific [place] 1.011 Urine Protein <15 mg/dl Urine Glucose (UA) Neg Urine Ketones Neg Urine Blood Neg Urine Nitrite Neg Urine Bilirubin Neg Urine Urobilinogen < 2.0 Ur Leukocyte Esterase Lg Urine WBC (Auto) 61.0 H Urine RBC (Auto) 5.0 Urine Bacteria (Auto) 1+ Salicylates Urine Opiates Screen Urine Methadone Screen Acetaminophen Ur Barbiturates Screen Ur Phencyclidine Scrn Ur Amphetamines Screen U Benzodiazepines Scrn Urine Cocaine Screen U Marijuana (THC) Screen Drugs of Abuse Note Plasma/Serum Alcohol < 0.01 01/09/17 01/09/17 10:23 11:14 WBC RBC Hgb Hct MCV MCH MCHC RDW Plt Count Lymph % (Auto) Park % (Auto) Eos % (Auto) Baso % (Auto) Lymph # Park # Eos # Baso # Seg Neutrophils % Seg Neutrophils # PT INR APTT POC ABG pH 7.352 POC ABG pCO2 41.8 POC ABG pO2 643 H POC ABG HCO3 23.1 POC ABG Total CO2 24 POC ABG O2 Sat 100 POC ABG Base Excess -2 VBG pH FiO2 100 Sodium Potassium Chloride Carbon Dioxide Anion Gap BUN Creatinine Estimated GFR BUN/Creatinine Ratio Glucose Lactic Acid Calcium Magnesium Total Bilirubin AST ALT Alkaline Phosphatase Ammonia Total Creatine Kinase CK-MB (CK-2) CK-MB (CK-2) Rel Index Troponin T NT-Pro-B Natriuret Pep Total Protein Albumin Albumin/Globulin Ratio TSH Free T4 Urine Color Urine Turbidity Urine pH Ur Specific [place] Urine Protein Urine Glucose (UA) Urine Ketones Urine Blood Urine Nitrite Urine Bilirubin Urine Urobilinogen Ur Leukocyte Esterase Urine WBC (Auto) Urine RBC (Auto) Urine Bacteria (Auto) Salicylates Urine Opiates Screen Presumptive negative Urine Methadone Screen Presumptive negative Acetaminophen Ur Barbiturates Screen Presumptive negative Ur Phencyclidine Scrn Presumptive negative Ur Amphetamines Screen Presumptive negative U Benzodiazepines Scrn Presumptive negative Urine Cocaine Screen Presumptive negative U Marijuana (THC) Screen Presumptive negative Drugs of Abuse Note Disclamer Plasma/Serum Alcohol - Radiology Data Radiology results: report reviewed (CT head, CT cervical spine), image reviewed (chest x-ray, CT head, CT cervical spine) interpreted by me: Chest x-ray-ET tube in correct position. No focal infiltrates, no pneumothorax CT head, CT cervical spine (read by radiologist)-no acute process - Differential Diagnosis ICH, drug overdose, hypoglycemia, sepsis, ACS, rhabdomyolysis Critical care attestation.: If time is entered above; I have spent that time in minutes in the direct care of this critically ill patient, excluding procedure time. ED Disposition Clinical Impression: Altered mental status, UTI (urinary tract infection), Elevated TSH Disposition: OP ADMIT IP TO THIS HOSP Is pt being admited?: Yes Does the pt Need Aspirin: No Condition: Serious Referrals: PRIMARY CARE, [Primary Care Provider] - 3-5 Days Time of Disposition: 11:29 (hospitalist paged)
[2017-01-09] MEDS ORDERED: ARTIFICIAL TEARS OPHTH OINT OU PRN (10:13)
--- NOTE | 2017-01-09 10:20 | Cat Scan Report ---
CT HEAD WITHOUT CONTRAST: HISTORY: Unresponsive. Compared to 12/26/16. Serial contiguous axial images were obtained through the cranium. Intravenous contrast material was not administered. There is no evidence for hemorrhage, mass, extra-axial fluid collection or hydrocephalus. The brain parenchyma attenuation is within normal limits. The calvarium is intact. The mastoid air cells and visualized portions of the sinuses are normal. IMPRESSION: No acute intracranial process is appreciated. If further evaluation is needed, MRI is recommended.
--- NOTE | 2017-01-09 10:21 | Cat Scan Report ---
CT SCAN OF THE CERVICAL SPINE: HISTORY: Neck injury, found down, unresponsive. TECHNIQUE: Contiguous 1.25 mm axial images of the cervical spine were obtained. Sagittal and coronal reformatted images. FINDINGS: There is normal alignment of the cervical spine. The body, pedicles and posterior ligaments appear normal. No evidence of fracture or subluxation is seen. Mild degenerative changes are noted which appear appropriate for this persons age. The spinal canal appears normal. The prevertebral soft tissues appear normal. IMPRESSION: Mild cervical spondylosis. No acute process is noted.
[2017-01-09 10:48] LABS: Basophils % (Auto) 0.2 % (0.0-1.8); Eosinophils % (Auto) 0.2 % (0.0-4.3); Hematocrit 28.4 % (35.5-45.6); Hemoglobin 9.7 gm/dl (11.8-15.2); Lymphocytes # (Auto) 1.3 K/mm3 (1.2-5.4); Lymphocytes % (Auto) 15.2 % (13.4-35.0); Mean Corpuscular HGB Conc 34 % (32-34); Mean Corpuscular Hemoglobin 26 pg (28-32); Mean Corpuscular Volume 76 fl (84-94); Monocytes # (Auto) 0.4 K/mm3 (0.0-0.8); Monocytes % (Auto) 4.9 % (0.0-7.3); Platelet Count 448 K/mm3 (140-440); Red Blood Count 3.71 M/mm3 (3.65-5.03); Red Cell Distribution Width 17.2 % (13.2-15.2)
--- NOTE | 2017-01-09 10:55 | XRay Report ---
AP CHEST: HISTORY: Endotracheal tube placement The endotracheal tube terminates 3.4 cm superior to the louis. AP view of the chest demonstrates a normal mediastinal and cardiac contour with clear lungs and normal bony and soft tissue structures. IMPRESSION: Unremarkable AP chest. Adequate endotracheal tube placement.
[2017-01-09 10:56] LABS: INR 1.07 (0.87-1.13)
[2017-01-09 10:57] LABS: Partial Thromboplastin Time 39.6 Sec. (24.2-36.6)
[2017-01-09] MEDS ORDERED: NACL 0.9% 500 ML IV SCH (11:00)
[2017-01-09 11:05] LABS: Bacteria,Urine 1+ /HPF (Negative); Bilirubin,Urine NEG (Negative); Blood,Urine NEG (Negative); Color,Urine Yellow (Yellow); Protein,Urine <15 mg/dL mg/dL (Negative); Urobilinogen,Urine < 2.0 mg/dL (<2.0)
[2017-01-09 11:08] LABS: Creatine Kinase MB 7.1 ng/mL (0.0-4.0)
[2017-01-09 11:11] LABS: Alanine Aminotransferase 17 units/L (7-56); Albumin 3.3 g/dL (3.9-5); Blood Urea Nitrogen 34 mg/dL (9-20); Calcium 8.3 mg/dL (8.4-10.2); Hemolysis Index 2
[2017-01-09 11:16] LABS: Amphetamine Screen,Urine PRESUMPTIVE NEGATIVE; Benzodiazepines Screen,Urine PRESUMPTIVE NEGATIVE; Cannabinoid Screen,Urine PRESUMPTIVE NEGATIVE; Cocaine Screen,Urine PRESUMPTIVE NEGATIVE; Methadone Screen,Urine PRESUMPTIVE NEGATIVE; Opiate Screen,Urine PRESUMPTIVE NEGATIVE
[2017-01-09 11:19] LABS: Free T4 (Free Thyroxine) 0.78 ng/dL (0.76-1.46)
[2017-01-09] MEDS: ROCEPHIN/NS 1 GM/50 ML 1 GM/50 ML BAG IV ONE ×2 (11:37→11:39)
[2017-01-09] MEDS ORDERED: NARCAN 2 MG/2 ML IV ONE (12:17)
--- NOTE | 2017-01-09 12:29 | History and Physical Report ---
History of Present Illness Chief complaint: Unresponsive, History of present illness: 51 YO Male with CKD,HTN, DM presents to ED for evaluation. Pt unable to provide history. Pt history taken from ED staff, and medical records. Pt found down and unresponsive by his neighbor, who subsequently called EMS. Upon arrival, patient found unresponsive on the floor with a serum glucose of 21, and covered with ants with insulin syringes around him and a bottle of atenolol which still had many pills remaining. The patient was administered D5 approximate 500 mls during transport without change in mental status/level of consciousness. Pt seen and evaluated in ED was was found to be unable to protect his airway. Pt intubated and placed on vent support. 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 Pt treated with supportive care and transferred to ICU. Past History Past Medical History: diabetes, hypertension, renal failure Past Surgical History: bowel surgery, Other (Left first toe,) Social history: single, Lives alone. denies: smoking, alcohol abuse, prescription drug abuse, IV drug use Family history: hypertension Medications and Allergies Allergies Allergy/AdvReac Type Severity Reaction Status Date / Time No Known Allergies Allergy Unverified 12/26/16 18:23 Home Medications Medication Instructions Recorded Confirmed Last Taken Type Insulin Detemir [Levemir] 12 units SUB-Q QHS #30 units 01/02/17 01/09/17 Unknown Rx Labetalol [Normodyne TAB] 200 mg PO BID #60 tablet 01/02/17 01/09/17 Unknown Rx Active Meds: Active Medications Hydrophilic Ointment (Vaseline Lip Therapy) 1 applic TP Q2HR PRN PRN Reason: Dry Lips Multi-Ingred Cream/Lotion/Oil/Oint (Artificial Tears Ophth Oint) 1 applic OU Q4HR PRN PRN Reason: Dry Eye(s) Sodium Chloride (Nacl 0.9% 500 Ml) 500 ml IV DIRECT PAOLO Review of Systems ROS unobtainable: due to mental status Exam - Constitutional Vitals: Temp Pulse Resp BP Pulse Ox 81 F L 50 L 30 H 61/40 89 01/09/17 10:00 01/09/17 10:05 01/09/17 10:00 01/09/17 10:05 01/09/17 10:00 General appearance: Present: severe distress - EENT Eyes: Present: PERRL ENT: hearing intact, clear oral mucosa - Neck Neck: Present: supple, normal ROM - Respiratory Respiratory effort: labored Respiratory: bilateral: diminished - Cardiovascular Heart Sounds: Present: S1 & S2. Absent: rub, click - Extremities Extremities: pulses symmetrical, No edema Extremity abnormal: edema Peripheral Pulses: within normal limits - Abdominal General gastrointestinal: Present: soft, non-tender, non-distended, normal bowel sounds Male genitourinary: Present: normal - Integumentary Integumentary: Present: clear, dry, clammy, decreased turgor - Musculoskeletal Musculoskeletal: generalized weakness - Psychiatric Psychiatric: no intact judgment & insight, no memory intact - Neurologic Neurologic: no gait normal Results - Labs CBC & Chem 7: 01/09/17 10:16 01/09/17 10:16 Labs: Abnormal lab results 01/09/17 01/09/17 01/09/17 Range/Units 10:16 10:16 10:16 Hgb 9.7 L (11.8-15.2) gm/dl Hct 28.4 L (35.5-45.6) % MCV 76 L (84-94) fl MCH 26 L (28-32) pg RDW 17.2 H (13.2-15.2) % Plt Count 448 H (140-440) K/mm3 Seg Neutrophils % 79.5 H (40.0-70.0) % APTT 39.6 H (24.2-36.6) Sec. POC ABG pO2 (80-105) VBG pH (7.320-7.420) Sodium 132 L (137-145) mmol/L Chloride 96.7 L (98-107) mmol/L Carbon Dioxide 21 L (22-30) mmol/L BUN 34 H (9-20) mg/dL Calcium 8.3 L (8.4-10.2) mg/dL Alkaline Phosphatase 151 H (35-129) units/L CK-MB (CK-2) 7.1 H (0.0-4.0) ng/mL CK-MB (CK-2) Rel Index 5.2 H (0-4) Albumin 3.3 L (3.9-5) g/dL TSH (0.270-4.200) mlU/mL Urine WBC (Auto) (0.0-6.0) /HPF Salicylates (2.8-20.0) mg/dL 01/09/17 01/09/17 01/09/17 Range/Units 10:16 10:16 10:16 Hgb (11.8-15.2) gm/dl Hct (35.5-45.6) % MCV (84-94) fl MCH (28-32) pg RDW (13.2-15.2) % Plt Count (140-440) K/mm3 Seg Neutrophils % (40.0-70.0) % APTT (24.2-36.6) Sec. POC ABG pO2 (80-105) VBG pH 7.284 L (7.320-7.420) Sodium (137-145) mmol/L Chloride (98-107) mmol/L Carbon Dioxide (22-30) mmol/L BUN (9-20) mg/dL Calcium (8.4-10.2) mg/dL Alkaline Phosphatase (35-129) units/L CK-MB (CK-2) (0.0-4.0) ng/mL CK-MB (CK-2) Rel Index (0-4) Albumin (3.9-5) g/dL TSH 52.800 H (0.270-4.200) mlU/mL Urine WBC (Auto) (0.0-6.0) /HPF Salicylates < 0.3 L (2.8-20.0) mg/dL 01/09/17 01/09/17 Range/Units 10:23 11:14 Hgb (11.8-15.2) gm/dl Hct (35.5-45.6) % MCV (84-94) fl MCH (28-32) pg RDW (13.2-15.2) % Plt Count (140-440) K/mm3 Seg Neutrophils % (40.0-70.0) % APTT (24.2-36.6) Sec. POC ABG pO2 643 H (80-105) VBG pH (7.320-7.420) Sodium (137-145) mmol/L Chloride (98-107) mmol/L Carbon Dioxide (22-30) mmol/L BUN (9-20) mg/dL Calcium (8.4-10.2) mg/dL Alkaline Phosphatase (35-129) units/L CK-MB (CK-2) (0.0-4.0) ng/mL CK-MB (CK-2) Rel Index (0-4) Albumin (3.9-5) g/dL TSH (0.270-4.200) mlU/mL Urine WBC (Auto) 61.0 H (0.0-6.0) /HPF Salicylates (2.8-20.0) mg/dL Assessment and Plan - Patient Problems (1) Acute hypoxemic respiratory failure Current Visit: Yes Status: Acute Plan to address problem: Pulmonary consulted, wean vent as tolerated, SBT in am, ABG in am, supplemental oxygen, supportive care, The high probability of a clinically significant, sudden or life threatening deterioration of the [pulmonary, endocrine, renal, cardiac] system(s) required my full and direct attention, intervention and personal management. The aggregate critical care time was [68] minutes. This time is in addition to time spent performing reported procedures but includes the following: [x] Data Review and interpretation [x] Patient assessment and monitoring of vital signs [x] Documentation [x] Medication orders and management (2) Myxedema coma Current Visit: Yes Status: Acute Plan to address problem: Synthroid therapy, cortisol level, hydrocortisone therapy, warming blanket, supportive care. (3) Encephalopathy acute Current Visit: Yes Status: Acute Plan to address problem: Secondary to myxedema coma. supportive care, IVF resuscitation, neuro checks, fall precautions, (4) Hyponatremia syndrome Current Visit: Yes Status: Acute Plan to address problem: IVR resuscitation, monitor uop q shift, supportive care. (5) Unconscious state Current Visit: Yes Status: Acute Plan to address problem: CT head, treat myxedema coma, neuro checks (6) DVT prophylaxis Current Visit: Yes Status: Acute
[2017-01-09] MEDS: D50W (25GM) Syringe IV ONE ×2 (12:53→13:23)
[2017-01-09] MEDS ORDERED: SYNTHROID IV ONE (13:00)
[2017-01-09] MEDS: NORMODYNE PO SCH ×2 (13:46→23:18)
[2017-01-09] MEDS: NOVOLOG SUB-Q SCH ×2 (13:47→23:20)
[2017-01-09] MEDS: D50W (25GM) Syringe IV PRN ×2 (14:22→16:44)
[2017-01-09] MEDS ORDERED: SYNTHROID IV SCH (17:00)
[2017-01-09] MEDS: D5NS 1,000 ML IV SCH (17:14)
[2017-01-09] MEDS ORDERED: NACL 0.9% 1000 ML 1,000 ML ONE (18:55)
--- NOTE | 2017-01-09 20:58 | Procedure Note ---
Date of procedure: 01/09/17 Pre-op diagnosis: Myxedema coma Post-op diagnosis: same Procedure: Right IJ Central Line placement under Ultrasound guidance After informed consent obtained, The patient was prepped and draped in the usual sterile fashion. Timeout taken to verify operative site, procedure, and patient. Ultrasound was used to identify the RIJ vein. Local anesthesia with lodocaine. Seldinger technique was used to access the RIJ vein. Seeker needle used to access the RIJ vein, and guidewire advanced into RIJ. Seeker needle removed over guidewire, and scalpel used to incise the skin, dilator passed over the guidewire and removed, Triple lumen catheter advanced into RIJ vein. All three ports flush and draw with ease. triple lumen catheter sewn in place. Postoperative CXR. reveals catheter in mid SVC without evidence of pneumothorax. Anesthesia: local Surgeon: AYLIN SIMENTAL Estimated blood loss: minimal Pathology: none Condition: critical Disposition: ICU
--- NOTE | 2017-01-09 22:02 | XRay Report ---
FINAL REPORT PROCEDURE: XR CHEST 1V AP TECHNIQUE: Chest radiograph anteroposterior view. CPT 78863 HISTORY: central line placement COMPARISON: Chest CT dated December 27, 2016 FINDINGS: Endotracheal tube terminates 3.2 cm above the [place]. Central venous catheter terminates the region of the mid SVC. The heart is normal in size. There is no focal infiltrate, pneumothorax or pleural effusion. IMPRESSION: No central line terminates in the region of the mid SVC without evidence of pneumothorax.
[2017-01-09] MEDS ORDERED: D50W (25GM) Vial IV PRN (22:23)
[2017-01-10 05:11] LABS: Hemoglobin 8.5 gm/dl (11.8-15.2); Mean Corpuscular HGB Conc 33 % (32-34); Mean Corpuscular Volume 77 fl (84-94); Platelet Count 474 K/mm3 (140-440); Red Blood Count 3.38 M/mm3 (3.65-5.03); Red Cell Distribution Width 17.9 % (13.2-15.2)
[2017-01-10 05:20] LABS: Blood Urea Nitrogen 27 mg/dL (9-20); Calcium 7.5 mg/dL (8.4-10.2); Hemolysis Index 1; Mean Corpuscular Hemoglobin 25 pg (28-32)
[2017-01-10 06:08] LABS: Band Neutrophils # (Manual) 1.7 K/mm3; Basophils % (Manual) 0 % (0.0-1.8); Eosinophils % (Manual) 0 % (0.0-4.3); Total Cells Counted 100
[2017-01-10 06:09] LABS: Hypochromasia 1+; Platelet Estimate Consistent w Auto
[2017-01-10] MEDS: NOVOLOG SUB-Q SCH ×2 (06:26→14:09)
[2017-01-10] MEDS: SYNTHROID IV SCH (06:36)
[2017-01-10] MEDS: D50W (25GM) Syringe IV PRN (06:37)
--- NOTE | 2017-01-10 07:44 | XRay Report ---
AP CHEST: HISTORY: Followup respiratory failure The endotracheal tube and right venous catheter remain in adequate position. The lungs are clear. Heart and mediastinal structures are unremarkable. No change since yesterday's exam. IMPRESSION: Unremarkable AP chest.
[2017-01-10] MEDS ORDERED: APRESOLINE PO PRN (11:00)
[2017-01-10] MEDS: NORMODYNE PO SCH ×2 (11:04→23:31)
[2017-01-10] MEDS: APRESOLINE IV PRN ×2 (13:45→21:49)
--- NOTE | 2017-01-10 14:15 | Progress Note ---
Assessment and Plan Assessment and plan: Metabolic encephalopathy Hypoglycemia Acute respiratory failure Myxedema coma Leukocytosis hyponatremia, resolved - Patient is intubated and on mechanical ventilation - Patient is on IV fluids, hydrocortisone, levothyroxine - Patient is on D5W - Blood pressure is on the high side - Was on IV antibiotics, now discontinued, will follow blood cultures DVT prophylaxis - On heparin Disposition - Continue ICU care History Interval history: Patient was seen and evaluated this morning, patient is comatose, on mechanical ventilation. Hospitalist Physical - Physical exam Narrative exam: Intubated and on mechanical ventilation. The patient appeared well nourished and normally developed. Vital signs as documented. Head exam is unremarkable. No scleral icterus . Neck is without jugular venous distension, thyromegaly, or carotid bruits. Lungs are clear to auscultation. Cardiac exam reveals regular rate and Rhythm. Abdominal exam reveals normal bowel sounds. Extremities are nonedematous and both femoral and pedal pulses are normal. 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 - Constitutional Vitals: Temp Pulse Resp BP Pulse Ox 99.1 F 78 13 167/85 100 01/10/17 08:22 01/10/17 11:04 01/10/17 09:30 01/10/17 13:45 01/10/17 09:30 General appearance: Present: severe distress Results - Labs CBC & Chem 7: 01/10/17 04:30 01/10/17 04:30 Labs: Laboratory Last Values WBC 24.1 K/mm3 (4.5-11.0) H 01/10/17 04:30 RBC 3.38 M/mm3 (3.65-5.03) L 01/10/17 04:30 Hgb 8.5 gm/dl (11.8-15.2) L 01/10/17 04:30 Hct 26.0 % (35.5-45.6) L 01/10/17 04:30 MCV 77 fl (84-94) L 01/10/17 04:30 MCH 25 pg (28-32) L 01/10/17 04:30 MCHC 33 % (32-34) 01/10/17 04:30 RDW 17.9 % (13.2-15.2) H 01/10/17 04:30 Plt Count 474 K/mm3 (140-440) H 01/10/17 04:30 Lymph % (Auto) 15.2 % (13.4-35.0) 01/09/17 10:16 Faulk % (Auto) 4.9 % (0.0-7.3) 01/09/17 10:16 Eos % (Auto) 0.2 % (0.0-4.3) 01/09/17 10:16 Baso % (Auto) 0.2 % (0.0-1.8) 01/09/17 10:16 Lymph # 1.3 K/mm3 (1.2-5.4) 01/09/17 10:16 Faulk # 0.4 K/mm3 (0.0-0.8) 01/09/17 10:16 Eos # 0.0 K/mm3 (0.0-0.4) 01/09/17 10:16 Baso # 0.0 K/mm3 (0.0-0.1) 01/09/17 10:16 Add Manual Diff Complete 01/10/17 04:30 Total Counted 100 01/10/17 04:30 Seg Neutrophils % Public Relations Specialist 01/10/17 04:30 Seg Neuts % (Manual) 88.0 % (40.0-70.0) H 01/10/17 04:30 Band Neutrophils % 7.0 % 01/10/17 04:30 Lymphocytes % (Manual) 4.0 % (13.4-35.0) L 01/10/17 04:30 Reactive Lymphs % (Man) 0 % 01/10/17 04:30 Monocytes % (Manual) 1.0 % (0.0-7.3) 01/10/17 04:30 Eosinophils % (Manual) 0 % (0.0-4.3) 01/10/17 04:30 Basophils % (Manual) 0 % (0.0-1.8) 01/10/17 04:30 Metamyelocytes % 0 % 01/10/17 04:30 Myelocytes % 0 % 01/10/17 04:30 Promyelocytes % 0 % 01/10/17 04:30 Blast Cells % 0 % 01/10/17 04:30 Nucleated RBC % Not Reportable 01/10/17 04:30 Seg Neutrophils # 6.8 K/mm3 (1.8-7.7) 01/09/17 10:16 Seg Neutrophils # Man 21.2 K/mm3 (1.8-7.7) H 01/10/17 04:30 Band Neutrophils # 1.7 K/mm3 01/10/17 04:30 Lymphocytes # (Manual) 1.0 K/mm3 (1.2-5.4) L 01/10/17 04:30 Abs React Lymphs (Man) 0.0 K/mm3 01/10/17 04:30 Monocytes # (Manual) 0.2 K/mm3 (0.0-0.8) 01/10/17 04:30 Eosinophils # (Manual) 0.0 K/mm3 (0.0-0.4) 01/10/17 04:30 Basophils # (Manual) 0.0 K/mm3 (0.0-0.1) 01/10/17 04:30 Metamyelocytes # 0.0 K/mm3 01/10/17 04:30 Myelocytes # 0.0 K/mm3 01/10/17 04:30 Promyelocytes # 0.0 K/mm3 01/10/17 04:30 Blast Cells # 0.0 K/mm3 01/10/17 04:30 WBC Morphology Not Reportable 01/10/17 04:30 Hypersegmented Neuts Not Reportable 01/10/17 04:30 Hyposegmented Neuts Not Reportable 01/10/17 04:30 Hypogranular Neuts Not Reportable 01/10/17 04:30 Smudge Cells Not Reportable 01/10/17 04:30 Toxic Granulation Not Reportable 01/10/17 04:30 Toxic Vacuolation Not Reportable 01/10/17 04:30 Dohle Bodies Not Reportable 01/10/17 04:30 Pelger-Huet Anomaly Not Reportable 01/10/17 04:30 [place] Rods Not Reportable 01/10/17 04:30 Platelet Estimate Consistent w auto 01/10/17 04:30 Clumped Platelets Not Reportable 01/10/17 04:30 Plt Clumps, EDTA Not Reportable 01/10/17 04:30 Large Platelets Not Reportable 01/10/17 04:30 Giant Platelets Not Reportable 01/10/17 04:30 Platelet Satelliting Not Reportable 01/10/17 04:30 Plt Morphology Comment Not Reportable 01/10/17 04:30 RBC Morphology Not Reportable 01/10/17 04:30 Dimorphic RBCs Not Reportable 01/10/17 04:30 Polychromasia Not Reportable 01/10/17 04:30 Hypochromasia 1+ 01/10/17 04:30 Poikilocytosis Not Reportable 01/10/17 04:30 Anisocytosis Not Reportable 01/10/17 04:30 Microcytosis Not Reportable 01/10/17 04:30 Macrocytosis Not Reportable 01/10/17 04:30 Spherocytes Not Reportable 01/10/17 04:30 Pappenheimer Bodies Not Reportable 01/10/17 04:30 Sickle Cells Not Reportable 01/10/17 04:30 Target Cells Not Reportable 01/10/17 04:30 Tear Drop Cells Not Reportable 01/10/17 04:30 Ovalocytes Not Reportable 01/10/17 04:30 Helmet Cells Not Reportable 01/10/17 04:30 [place] Bodies Not Reportable 01/10/17 04:30 [place] Rings Not Reportable 01/10/17 04:30 [place] Cells Not Reportable 01/10/17 04:30 Bite Cells Not Reportable 01/10/17 04:30 Crenated Cell Not Reportable 01/10/17 04:30 Elliptocytes Not Reportable 01/10/17 04:30 Acanthocytes (Spur) Not Reportable 01/10/17 04:30 Rouleaux Not Reportable 01/10/17 04:30 Hemoglobin C Crystals Not Reportable 01/10/17 04:30 Schistocytes Not Reportable 01/10/17 04:30 Malaria parasites Not Reportable 01/10/17 04:30 Kyle Bodies Not Reportable 01/10/17 04:30 Hem Pathologist Commnt No 01/10/17 04:30 PT 14.4 Sec. (12.2-14.9) 01/09/17 10:16 INR 1.07 (0.87-1.13) 01/09/17 10:16 APTT 39.6 Sec. (24.2-36.6) H 01/09/17 10:16 POC ABG pH 7.428 (7.35-7.45) 01/10/17 05:45 POC ABG pCO2 26.6 (35-45) L 01/10/17 05:45 POC ABG pO2 207 (80-105) H 01/10/17 05:45 POC ABG HCO3 17.6 01/10/17 05:45 POC ABG Total CO2 18 01/10/17 05:45 POC ABG O2 Sat 100 01/10/17 05:45 POC ABG Base Excess -7 01/10/17 05:45 VBG pH 7.284 (7.320-7.420) L 01/09/17 10:16 FiO2 50 % 01/10/17 05:45 Sodium 138 mmol/L (137-145) 01/10/17 04:30 Potassium 3.6 mmol/L (3.6-5.0) D 01/10/17 04:30 Chloride 107.0 mmol/L (98-107) 01/10/17 04:30 Carbon Dioxide 17 mmol/L (22-30) L 01/10/17 04:30 Anion Gap 18 mmol/L 01/10/17 04:30 BUN 27 mg/dL (9-20) H 01/10/17 04:30 Creatinine 0.9 mg/dL (0.8-1.5) 01/10/17 04:30 Estimated GFR > 60 ml/min 01/10/17 04:30 BUN/Creatinine Ratio 30.00 % 01/10/17 04:30 Glucose 82 mg/dL (75-100) 01/10/17 04:30 POC Glucose 114 (70-105) H 01/10/17 13:41 Lactic Acid 1.00 mmol/L (0.7-2.0) 01/09/17 10:16 Calcium 7.5 mg/dL (8.4-10.2) L 01/10/17 04:30 Magnesium 2.10 mg/dL (1.7-2.3) 01/09/17 10:16 Total Bilirubin 0.30 mg/dL (0.1-1.2) 01/09/17 10:16 AST 25 units/L (5-40) 01/09/17 10:16 ALT 17 units/L (7-56) 01/09/17 10:16 Alkaline Phosphatase 151 units/L (35-129) H 01/09/17 10:16 Ammonia 35.0 umol/L (25-60) 01/09/17 10:16 Total Creatine Kinase 135 units/L (55-170) 01/09/17 10:16 CK-MB (CK-2) 7.1 ng/mL (0.0-4.0) H 01/09/17 10:16 CK-MB (CK-2) Rel Index 5.2 (0-4) H 01/09/17 10:16 Troponin T < 0.010 ng/mL (0.00-0.029) 01/09/17 10:16 NT-Pro-B Natriuret Pep 602.9 pg/mL (0-900) 01/09/17 10:16 Total Protein 8.2 g/dL (6.3-8.2) 01/09/17 10:16 Albumin 3.3 g/dL (3.9-5) L 01/09/17 10:16 Albumin/Globulin Ratio 0.7 % 01/09/17 10:16 TSH 52.800 mlU/mL (0.270-4.200) H 01/09/17 10:16 Free T4 0.78 ng/dL (0.76-1.46) 01/09/17 10:16 Urine Color Yellow (Yellow) 01/09/17 10:23 Urine Turbidity Clear (Clear) 01/09/17 10:23 Urine pH 6.0 (5.0-7.0) 01/09/17 10:23 Ur Specific [place] 1.011 (1.003-1.030) 01/09/17 10:23 Urine Protein <15 mg/dl mg/dL (Negative) 01/09/17 10:23 Urine Glucose (UA) Neg mg/dL (Negative) 01/09/17 10:23 Urine Ketones Neg mg/dL (Negative) 01/09/17 10:23 Urine Blood Neg (Negative) 01/09/17 10:23 Urine Nitrite Neg (Negative) 01/09/17 10:23 Urine Bilirubin Neg (Negative) 01/09/17 10:23 Urine Urobilinogen < 2.0 mg/dL (<2.0) 01/09/17 10:23 Ur Leukocyte Esterase Lg (Negative) 01/09/17 10:23 Urine WBC (Auto) 61.0 /HPF (0.0-6.0) H 01/09/17 10:23 Urine RBC (Auto) 5.0 /HPF (0.0-6.0) 01/09/17 10:23 Urine Bacteria (Auto) 1+ /HPF (Negative) 01/09/17 10:23 Salicylates < 0.3 mg/dL (2.8-20.0) L 01/09/17 10:16 Urine Opiates Screen Presumptive negative 01/09/17 10:23 Urine Methadone Screen Presumptive negative 01/09/17 10:23 Acetaminophen < 15.0 ug/mL (10.0-30.0) 01/09/17 10:16 Ur Barbiturates Screen Presumptive negative 01/09/17 10:23 Ur Phencyclidine Scrn Presumptive negative 01/09/17 10:23 Ur Amphetamines Screen Presumptive negative 01/09/17 10:23 U Benzodiazepines Scrn Presumptive negative 01/09/17 10:23 Urine Cocaine Screen Presumptive negative 01/09/17 10:23 U Marijuana (THC) Screen Presumptive negative 01/09/17 10:23 Drugs of Abuse Note Disclamer 01/09/17 10:23 Plasma/Serum Alcohol < 0.01 gm% (0-0.07) 01/09/17 10:16
--- NOTE | 2017-01-10 15:37 | Consultation ---
History of Present Illness - Reason for Consult Consult date: 01/10/17 seizure and coma - History of Present Illness plan to check MRI and EEG exam suggestive of hypothyoid induced coma vs pure hypoglycemia no structural lesion seen on the CT see dictated note I will follow Past History Past Medical History: diabetes, hypertension, renal failure Past Surgical History: bowel surgery, Other (Left first toe,) Social history: single, Lives alone. denies: smoking, alcohol abuse, prescription drug abuse, IV drug use Family history: hypertension Medications and Allergies Allergies Allergy/AdvReac Type Severity Reaction Status Date / Time No Known Allergies Allergy Unverified 12/26/16 18:23 Home Medications Medication Instructions Recorded Confirmed Last Taken Type Insulin Detemir [Levemir] 12 units SUB-Q QHS #30 units 01/02/17 01/09/17 Unknown Rx Labetalol [Normodyne TAB] 200 mg PO BID #60 tablet 01/02/17 01/09/17 Unknown Rx Active Meds: Active Medications Dextrose (D50w (25gm) Syringe) 50 ml IV PRN PRN PRN Reason: Hypoglycemia Last Admin: 01/10/17 06:37 Dose: 50 ml Dextrose (D50w (25gm) Vial) 50 gm IV PRN PRN PRN Reason: Hypoglycemia Last Admin: 01/09/17 22:26 Dose: 50 gm Heparin Sodium (Porcine) (Heparin) 5,000 unit SUB-Q Q12HR PAOLO Hydralazine HCl (Apresoline) 10 mg IV Q4HR PRN PRN Reason: Hypertension Last Admin: 01/10/17 13:45 Dose: 10 mg Hydrocortisone Sodium Succinate (Solu-Cortef) 50 mg IV Q8H PAOLO Last Admin: 01/10/17 14:20 Dose: 50 mg Hydrophilic Ointment (Vaseline Lip Therapy) 1 applic TP Q2HR PRN PRN Reason: Dry Lips Dextrose/Sodium Chloride (D5ns) 1,000 mls @ 100 mls/hr IV DIRECT PAOLO Last Admin: 01/09/17 17:14 Dose: 100 mls/hr Insulin Aspart (Novolog) 0 units SUB-Q Q8HR PAOLO PRN Reason: Protocol Last Admin: 01/10/17 14:09 Dose: Not Given Labetalol HCl (Normodyne) 200 mg PO BID PAOLO Last Admin: 01/10/17 11:04 Dose: Not Given Levothyroxine Sodium (Synthroid) 200 mcg IV DAILY@0600 [facility] Last Admin: 01/10/17 06:36 Dose: 200 mcg Levothyroxine Sodium (Synthroid) 200 mcg IV NOW [facility] Last Admin: 01/09/17 17:23 Dose: 200 mcg Multi-Ingred Cream/Lotion/Oil/Oint (Artificial Tears Ophth Oint) 1 applic OU Q4HR PRN PRN Reason: Dry Eye(s) Sodium Chloride (Nacl 0.9% 500 Ml) 500 ml IV DIRECT [facility] Exam - Constitutional Vitals: Temp Pulse Resp BP Pulse Ox 99.1 F 87 14 155/81 100 01/10/17 08:22 01/10/17 14:09 01/10/17 14:00 01/10/17 14:09 01/10/17 14:00 Results - Labs CBC & Chem 7: 01/10/17 04:30 01/10/17 04:30 Labs: Abnormal lab results 01/09/17 01/09/17 01/10/17 Range/Units 16:28 17:14 04:30 WBC 24.1 H (4.5-11.0) K/mm3 RBC 3.38 L (3.65-5.03) M/mm3 Hgb 8.5 L (11.8-15.2) gm/dl Hct 26.0 L (35.5-45.6) % MCV 77 L (84-94) fl MCH 25 L (28-32) pg RDW 17.9 H (13.2-15.2) % Plt Count 474 H (140-440) K/mm3 Seg Neuts % (Manual) 88.0 H (40.0-70.0) % Lymphocytes % (Manual) 4.0 L (13.4-35.0) % Seg Neutrophils # Man 21.2 H (1.8-7.7) K/mm3 Lymphocytes # (Manual) 1.0 L (1.2-5.4) K/mm3 POC ABG pCO2 (35-45) POC ABG pO2 (80-105) Carbon Dioxide (22-30) mmol/L BUN (9-20) mg/dL POC Glucose 44 L 112 H (70-105) Calcium (8.4-10.2) mg/dL 01/10/17 01/10/17 01/10/17 Range/Units 04:30 05:41 05:45 WBC (4.5-11.0) K/mm3 RBC (3.65-5.03) M/mm3 Hgb (11.8-15.2) gm/dl Hct (35.5-45.6) % MCV (84-94) fl MCH (28-32) pg RDW (13.2-15.2) % Plt Count (140-440) K/mm3 Seg Neuts % (Manual) (40.0-70.0) % Lymphocytes % (Manual) (13.4-35.0) % Seg Neutrophils # Man (1.8-7.7) K/mm3 Lymphocytes # (Manual) (1.2-5.4) K/mm3 POC ABG pCO2 26.6 L (35-45) POC ABG pO2 207 H (80-105) Carbon Dioxide 17 L (22-30) mmol/L BUN 27 H (9-20) mg/dL POC Glucose 68 L (70-105) Calcium 7.5 L (8.4-10.2) mg/dL 01/10/17 01/10/17 01/10/17 Range/Units 07:47 10:50 13:41 WBC (4.5-11.0) K/mm3 RBC (3.65-5.03) M/mm3 Hgb (11.8-15.2) gm/dl Hct (35.5-45.6) % MCV (84-94) fl MCH (28-32) pg RDW (13.2-15.2) % Plt Count (140-440) K/mm3 Seg Neuts % (Manual) (40.0-70.0) % Lymphocytes % (Manual) (13.4-35.0) % Seg Neutrophils # Man (1.8-7.7) K/mm3 Lymphocytes # (Manual) (1.2-5.4) K/mm3 POC ABG pCO2 (35-45) POC ABG pO2 (80-105) Carbon Dioxide (22-30) mmol/L BUN (9-20) mg/dL POC Glucose 148 H 165 H 114 H (70-105) Calcium (8.4-10.2) mg/dL
--- NOTE | 2017-01-10 21:56 | Consultation ---
History of Present Illness Consult date: 01/10/17 Requesting physician: ALLI OCAMPO Reason for consult: other (Acute respiratory failure) History of present illness: 51 yo found down with hypothermia, hypoglycemia. Apparently had some insulin syringes near him and was covered in ants per chart. He is unresponsive on the ventilator now, unable to give history, and there is no family present. Active Medications Dextrose (D50w (25gm) Syringe) 50 ml IV PRN PRN PRN Reason: Hypoglycemia Last Admin: 01/10/17 06:37 Dose: 50 ml Heparin Sodium (Porcine) (Heparin) 5,000 unit SUB-Q Q12HR [facility] Hydralazine HCl (Apresoline) 10 mg IV Q4HR PRN PRN Reason: Hypertension Last Admin: 01/10/17 21:49 Dose: 10 mg Hydrocortisone Sodium Succinate (Solu-Cortef) 50 mg IV Q8H PAOLO Last Admin: 01/10/17 14:20 Dose: 50 mg Hydrophilic Ointment (Vaseline Lip Therapy) 1 applic TP Q2HR PRN PRN Reason: Dry Lips Dextrose/Sodium Chloride (D5ns) 1,000 mls @ 100 mls/hr IV DIRECT [facility]O Last Admin: 01/09/17 17:14 Dose: 100 mls/hr Ceftriaxone Sodium (Rocephin/Ns 1 Gm/50 Ml) 1 gm in 50 mls @ 100 mls/hr IV Q24HR [facility] PRN Reason: Protocol Insulin Aspart (Novolog) 0 units SUB-Q Q8HR [facility]O PRN Reason: Protocol Last Admin: 01/10/17 14:09 Dose: Not Given Labetalol HCl (Normodyne) 200 mg PO BID [facility] Last Admin: 01/10/17 11:04 Dose: Not Given Levothyroxine Sodium (Synthroid) 200 mcg IV DAILY@0600 [facility] Last Admin: 01/10/17 06:36 Dose: 200 mcg Multi-Ingred Cream/Lotion/Oil/Oint (Artificial Tears Ophth Oint) 1 applic OU Q4HR PRN PRN Reason: Dry Eye(s) Sodium Chloride (Nacl 0.9% 500 Ml) 500 ml IV DIRECT PAOLO Past History Past Medical History: diabetes, hypertension, renal failure Past Surgical History: bowel surgery, Other (Left first toe,) Social history: single, Lives alone. denies: smoking, alcohol abuse, prescription drug abuse, IV drug use Family history: hypertension Medications and Allergies Allergies Allergy/AdvReac Type Severity Reaction Status Date / Time No Known Allergies Allergy Unverified 12/26/16 18:23 Home Medications Medication Instructions Recorded Confirmed Last Taken Type Insulin Detemir [Levemir] 12 units SUB-Q QHS #30 units 01/02/17 01/09/17 Unknown Rx Labetalol [Normodyne TAB] 200 mg PO BID #60 tablet 01/02/17 01/09/17 Unknown Rx Active Meds: Active Medications Dextrose (D50w (25gm) Syringe) 50 ml IV PRN PRN PRN Reason: Hypoglycemia Last Admin: 01/10/17 06:37 Dose: 50 ml Heparin Sodium (Porcine) (Heparin) 5,000 unit SUB-Q Q12HR [facility] Hydralazine HCl (Apresoline) 10 mg IV Q4HR PRN PRN Reason: Hypertension Last Admin: 01/10/17 21:49 Dose: 10 mg Hydrocortisone Sodium Succinate (Solu-Cortef) 50 mg IV Q8H [facility] Last Admin: 01/10/17 14:20 Dose: 50 mg Hydrophilic Ointment (Vaseline Lip Therapy) 1 applic TP Q2HR PRN PRN Reason: Dry Lips Dextrose/Sodium Chloride (D5ns) 1,000 mls @ 100 mls/hr IV DIRECT [facility] Last Admin: 01/09/17 17:14 Dose: 100 mls/hr Ceftriaxone Sodium (Rocephin/Ns 1 Gm/50 Ml) 1 gm in 50 mls @ 100 mls/hr IV Q24HR [facility] PRN Reason: Protocol Insulin Aspart (Novolog) 0 units SUB-Q Q8HR [facility] PRN Reason: Protocol Last Admin: 01/10/17 14:09 Dose: Not Given Labetalol HCl (Normodyne) 200 mg PO BID [facility] Last Admin: 01/10/17 11:04 Dose: Not Given Levothyroxine Sodium (Synthroid) 200 mcg IV DAILY@0600 [facility] Last Admin: 01/10/17 06:36 Dose: 200 mcg Multi-Ingred Cream/Lotion/Oil/Oint (Artificial Tears Ophth Oint) 1 applic OU Q4HR PRN PRN Reason: Dry Eye(s) Sodium Chloride (Nacl 0.9% 500 Ml) 500 ml IV DIRECT [facility] Review of Systems ROS unobtainable: due to endotracheal tube Physical Examination Vital signs: Vital Signs Temp Pulse Resp BP Pulse Ox 81 F L 58 L 30 H 54/33 89 01/09/17 10:00 01/09/17 10:00 01/09/17 10:00 01/09/17 10:00 01/09/17 10:00 Vital Signs - 24 hr 01/09/17 01/09/17 01/10/17 23:00 23:49 03:00 Temperature Pulse Rate 86 90 80 Respiratory 21 Rate Blood Pressure 147/72 117/67 Blood Pressure 122/76 [Right] O2 Sat by Pulse Oximetry 01/10/17 01/10/17 01/10/17 05:19 06:44 06:45 Temperature Pulse Rate 80 81 Respiratory 15 13 Rate Blood Pressure 121/71 129/68 Blood Pressure [Right] O2 Sat by Pulse 99 Oximetry 01/10/17 01/10/17 01/10/17 06:46 06:48 06:50 Temperature Pulse Rate 81 79 82 Respiratory 18 14 12 Rate Blood Pressure 129/68 129/68 129/68 Blood Pressure [Right] O2 Sat by Pulse Oximetry 01/10/17 01/10/17 01/10/17 06:52 06:54 06:56 Temperature Pulse Rate 80 81 81 Respiratory 14 18 14 Rate Blood Pressure 129/68 129/68 129/68 Blood Pressure [Right] O2 Sat by Pulse Oximetry 01/10/17 01/10/17 01/10/17 06:58 07:00 07:02 Temperature Pulse Rate 82 81 81 Respiratory 16 13 13 Rate Blood Pressure 129/68 134/73 134/73 Blood Pressure [Right] O2 Sat by Pulse Oximetry 01/10/17 01/10/17 01/10/17 07:04 07:06 07:08 Temperature Pulse Rate 81 80 80 Respiratory 13 15 16 Rate Blood Pressure 134/73 134/73 134/73 Blood Pressure [Right] O2 Sat by Pulse Oximetry 01/10/17 01/10/17 01/10/17 07:10 07:12 07:14 Temperature Pulse Rate 81 82 83 Respiratory 15 13 15 Rate Blood Pressure 134/73 134/73 134/73 Blood Pressure [Right] O2 Sat by Pulse Oximetry 01/10/17 01/10/17 01/10/17 07:15 07:16 07:18 Temperature Pulse Rate 80 82 81 Respiratory 15 16 14 Rate Blood Pressure 139/68 139/68 139/68 Blood Pressure [Right] O2 Sat by Pulse Oximetry 01/10/17 01/10/17 01/10/17 07:20 07:22 07:24 Temperature Pulse Rate 80 81 80 Respiratory 15 13 13 Rate Blood Pressure 139/68 139/68 139/68 Blood Pressure [Right] O2 Sat by Pulse Oximetry 01/10/17 01/10/17 01/10/17 07:26 07:28 07:30 Temperature Pulse Rate 84 81 79 Respiratory 18 15 13 Rate Blood Pressure 139/68 139/68 136/74 Blood Pressure [Right] O2 Sat by Pulse Oximetry 01/10/17 01/10/17 01/10/17 07:32 07:34 07:35 Temperature Pulse Rate 79 80 79 Respiratory 12 13 14 Rate Blood Pressure 136/74 136/74 136/74 Blood Pressure [Right] O2 Sat by Pulse Oximetry 01/10/17 01/10/17 01/10/17 07:38 07:40 07:42 Temperature Pulse Rate 79 80 80 Respiratory 16 13 14 Rate Blood Pressure 136/74 136/74 136/74 Blood Pressure [Right] O2 Sat by Pulse 100 100 100 Oximetry 01/10/17 01/10/17 01/10/17 07:44 07:46 07:48 Temperature Pulse Rate 79 82 80 Respiratory 14 14 15 Rate Blood Pressure 136/74 136/74 136/74 Blood Pressure [Right] O2 Sat by Pulse 100 100 100 Oximetry 01/10/17 01/10/17 01/10/17 07:50 07:52 07:54 Temperature Pulse Rate 80 80 80 Respiratory 13 13 14 Rate Blood Pressure 136/74 136/74 136/74 Blood Pressure [Right] O2 Sat by Pulse 100 100 100 Oximetry 01/10/17 01/10/17 01/10/17 07:56 07:58 08:00 Temperature Pulse Rate 80 78 80 Respiratory 12 13 14 Rate Blood Pressure 136/74 136/74 136/74 Blood Pressure [Right] O2 Sat by Pulse 100 100 100 Oximetry 01/10/17 01/10/17 01/10/17 08:02 08:04 08:06 Temperature Pulse Rate 79 80 82 Respiratory 12 13 14 Rate Blood Pressure 136/74 136/74 136/74 Blood Pressure [Right] O2 Sat by Pulse 100 100 100 Oximetry 01/10/17 01/10/17 01/10/17 08:08 08:10 08:11 Temperature Pulse Rate 80 81 81 Respiratory 16 16 13 Rate Blood Pressure 136/74 159/75 159/75 Blood Pressure [Right] O2 Sat by Pulse 100 100 100 Oximetry 01/10/17 01/10/17 01/10/17 08:12 08:14 08:15 Temperature Pulse Rate 78 83 81 Respiratory 17 12 13 Rate Blood Pressure 159/75 159/75 158/79 Blood Pressure [Right] O2 Sat by Pulse 100 100 100 Oximetry 01/10/17 01/10/17 01/10/17 08:16 08:18 08:20 Temperature Pulse Rate 79 81 80 Respiratory 15 14 12 Rate Blood Pressure 158/79 158/79 158/79 Blood Pressure [Right] O2 Sat by Pulse 100 100 100 Oximetry 01/10/17 01/10/17 01/10/17 08:22 08:24 08:26 Temperature 99.1 F Pulse Rate 79 81 79 Respiratory 13 15 13 Rate Blood Pressure 158/79 158/79 158/79 Blood Pressure 155/79 [Right] O2 Sat by Pulse 100 100 100 Oximetry 01/10/17 01/10/17 01/10/17 08:28 08:30 08:32 Temperature Pulse Rate 84 80 79 Respiratory 14 14 12 Rate Blood Pressure 158/79 158/79 158/79 Blood Pressure [Right] O2 Sat by Pulse 100 100 100 Oximetry 01/10/17 01/10/17 01/10/17 08:34 08:36 08:38 Temperature Pulse Rate 80 79 79 Respiratory 13 13 13 Rate Blood Pressure 158/79 158/79 158/79 Blood Pressure [Right] O2 Sat by Pulse 100 100 100 Oximetry 01/10/17 01/10/17 01/10/17 08:40 08:42 08:44 Temperature Pulse Rate 80 80 81 Respiratory 14 13 14 Rate Blood Pressure 158/79 158/79 158/79 Blood Pressure [Right] O2 Sat by Pulse 100 100 100 Oximetry 01/10/17 01/10/17 01/10/17 08:45 08:46 08:48 Temperature Pulse Rate 79 79 82 Respiratory 14 12 13 Rate Blood Pressure 153/80 153/80 153/80 Blood Pressure [Right] O2 Sat by Pulse 100 100 100 Oximetry 01/10/17 01/10/17 01/10/17 08:50 08:52 08:54 Temperature Pulse Rate 80 78 82 Respiratory 15 16 13 Rate Blood Pressure 153/80 153/80 153/80 Blood Pressure [Right] O2 Sat by Pulse 100 100 100 Oximetry 01/10/17 01/10/17 01/10/17 08:56 08:58 09:00 Temperature Pulse Rate 80 79 81 Respiratory 12 14 15 Rate Blood Pressure 153/80 153/80 158/79 Blood Pressure [Right] O2 Sat by Pulse 100 100 100 Oximetry 01/10/17 01/10/17 01/10/17 09:02 09:04 09:06 Temperature Pulse Rate 80 80 80 Respiratory 13 11 L 13 Rate Blood Pressure 158/79 158/79 158/79 Blood Pressure [Right] O2 Sat by Pulse 100 100 100 Oximetry 01/10/17 01/10/17 01/10/17 09:08 09:10 09:12 Temperature Pulse Rate 78 79 79 Respiratory 14 14 15 Rate Blood Pressure 158/79 158/79 158/79 Blood Pressure [Right] O2 Sat by Pulse 100 100 100 Oximetry 01/10/17 01/10/17 01/10/17 09:14 09:15 09:16 Temperature Pulse Rate 79 81 80 Respiratory 13 13 13 Rate Blood Pressure 158/79 145/77 145/77 Blood Pressure [Right] O2 Sat by Pulse 100 100 100 Oximetry 01/10/17 01/10/17 01/10/17 09:18 09:20 09:22 Temperature Pulse Rate 79 80 80 Respiratory 13 11 L 14 Rate Blood Pressure 145/77 145/77 145/77 Blood Pressure [Right] O2 Sat by Pulse 100 100 100 Oximetry 01/10/17 01/10/17 01/10/17 09:24 09:26 09:28 Temperature Pulse Rate 80 80 79 Respiratory 13 12 11 L Rate Blood Pressure 145/77 145/77 145/77 Blood Pressure [Right] O2 Sat by Pulse 100 100 100 Oximetry 01/10/17 01/10/17 01/10/17 09:30 10:00 11:00 Temperature Pulse Rate 79 78 78 Respiratory 13 13 11 L Rate Blood Pressure 152/82 146/81 151/84 Blood Pressure [Right] O2 Sat by Pulse 100 100 100 Oximetry 01/10/17 01/10/17 01/10/17 11:04 12:00 13:00 Temperature Pulse Rate 78 79 81 Respiratory 11 L 15 Rate Blood Pressure 151/84 160/83 161/86 Blood Pressure [Right] O2 Sat by Pulse 100 100 Oximetry 01/10/17 01/10/17 01/10/17 13:45 14:00 14:09 Temperature Pulse Rate 88 87 Respiratory 14 Rate Blood Pressure 167/85 155/81 155/81 Blood Pressure [Right] O2 Sat by Pulse 100 Oximetry 01/10/17 01/10/17 01/10/17 15:00 16:00 17:00 Temperature Pulse Rate 85 88 87 Respiratory 13 12 14 Rate Blood Pressure 134/74 145/80 141/80 Blood Pressure [Right] O2 Sat by Pulse 100 100 100 Oximetry 01/10/17 01/10/17 01/10/17 18:00 19:18 21:49 Temperature Pulse Rate 84 89 88 Respiratory Rate Blood Pressure 156/82 149/87 188/101 Blood Pressure [Right] O2 Sat by Pulse 100 Oximetry General appearance: other (intubated, critically ill on vent) Eyes: non-icteric ENT: oropharynx moist Neck: supple Effort: normal Ascultation: Bilateral: clear Cardiovascular: regular rate and rhythm (no mrg) Gastrointestinal: normoactive bowel sounds, soft, non-tender, non-distended Integumentary: rash (lesions all over trunk/extremities (most appear to be scabs )) Extremities: no cyanosis, no edema, pink and warm other (unresponsive) other (unable to obtain) Results - Laboratory Findings CBC and BMP: 01/10/17 04:30 01/10/17 04:30 ABG POC ABG pH 7.428 (7.35-7.45) 01/10/17 05:45 POC ABG pCO2 26.6 (35-45) L 01/10/17 05:45 POC ABG pO2 207 (80-105) H 01/10/17 05:45 POC ABG HCO3 17.6 01/10/17 05:45 POC ABG Total CO2 18 01/10/17 05:45 POC ABG O2 Sat 100 01/10/17 05:45 PT/INR, D-dimer PT 14.4 Sec. (12.2-14.9) 01/09/17 10:16 INR 1.07 (0.87-1.13) 01/09/17 10:16 Abnormal lab findings: Abnormal Labs 01/09/17 01/09/17 01/09/17 12:49 13:13 14:21 WBC RBC Hgb Hct MCV MCH RDW Plt Count Seg Neuts % (Manual) Lymphocytes % (Manual) Seg Neutrophils # Man Lymphocytes # (Manual) POC ABG pCO2 POC ABG pO2 Carbon Dioxide BUN POC Glucose < 40 L 128 H 65 L Calcium 01/09/17 01/09/17 01/09/17 15:09 16:28 17:14 WBC RBC Hgb Hct MCV MCH RDW Plt Count Seg Neuts % (Manual) Lymphocytes % (Manual) Seg Neutrophils # Man Lymphocytes # (Manual) POC ABG pCO2 POC ABG pO2 Carbon Dioxide BUN POC Glucose 120 H 44 L 112 H Calcium 01/10/17 01/10/17 01/10/17 04:30 04:30 05:41 WBC 24.1 H RBC 3.38 L Hgb 8.5 L Hct 26.0 L MCV 77 L MCH 25 L RDW 17.9 H Plt Count 474 H Seg Neuts % (Manual) 88.0 H Lymphocytes % (Manual) 4.0 L Seg Neutrophils # Man 21.2 H Lymphocytes # (Manual) 1.0 L POC ABG pCO2 POC ABG pO2 Carbon Dioxide 17 L BUN 27 H POC Glucose 68 L Calcium 7.5 L 01/10/17 01/10/17 01/10/17 05:45 07:47 10:50 WBC RBC Hgb Hct MCV MCH RDW Plt Count Seg Neuts % (Manual) Lymphocytes % (Manual) Seg Neutrophils # Man Lymphocytes # (Manual) POC ABG pCO2 26.6 L POC ABG pO2 207 H Carbon Dioxide BUN POC Glucose 148 H 165 H Calcium 01/10/17 01/10/17 13:41 20:20 WBC RBC Hgb Hct MCV MCH RDW Plt Count Seg Neuts % (Manual) Lymphocytes % (Manual) Seg Neutrophils # Man Lymphocytes # (Manual) POC ABG pCO2 POC ABG pO2 Carbon Dioxide BUN POC Glucose 114 H 150 H Calcium - Diagnostic Findings Chest x-ray: report reviewed, image reviewed Assessment and Plan Imp: 1. Hypoglycemia/hypothermia -> suspect due to too much insulin 2. Hypothyroidism; doubt myxedema coma with normal free T4 3. Acute respiratory failure, hypoxia 4. UTI/SIRS 5. Metabolic encephalopathy Rec: 1. Minimize sedation 2. Rocephin; f/u cultures and send urine culture 3. Neuro work-up 4. Taper steroids soon 5. Caution w/ large dose of IV Synthroid; see #2 above 6. GI/DVT PPx 7. Guarded prognosis No family present. Thanks for the consult.
[2017-01-10] MEDS: PEPCID IV SCH (23:59)
--- NOTE | 2017-01-11 02:46 | Consultation ---
HISTORY OF PRESENT ILLNESS: This is a 51-year-old male who was found unresponsive by neighbor. He apparently was found with a blood sugar of 20 and a rectal temperature by description of 80. He was resuscitated by EMT brought to the hospital. Since then, he has not subsequently awoken in the 24 hours. I spoke with the nurse who is at the bedside. I have also been pointed out that he has a history of known hypothyroidism, but was not taking thyroid replacement therapy. The only medication found was the patient's metoprolol. I did confirm the patient did not have any doses of insulin, glipizide, metformin or any other hypoglycemic agents. There is no history of alcohol or drug abuse per family and the witnesses at the scene. The patient has had at this point a normal CT scan of the head and of the neck. MRI scan is pending. PHYSICAL EXAMINATION: Reveals male, ventilated with the ventilator, but he has a positive gag reflex. Positive corneals, positive doll's eyes. He has decerebrate posturing of right and left upper extremities equally as well as the decerebrate posturing of the legs spontaneously. He has upward and outward deviation of the eyes to the left, but he will cross the midline and the eyes do go to the right with doll's head maneuver. No active seizure foci are present. IMPRESSION: This patient has a profound encephalopathy. There are several factors that play here. First of all, it is quite unusual to be so hypothermic, but that may be accounted for by his hypothyroidism. The second issue is the low blood sugar. I am not sure how this factors and has connection with hypothyroidism, but we do not have a history that he was taking any agent such as insulin and no history of diabetes that we know of. It is interesting that he has a great many skin moles, which are flat, [id number] hyperpigmented areas which may be associated with hypothyroidism, so this may be a longstanding condition, but typically you know this may be what is referred to his myxedema coma, but that diagnosis is one of exclusion at this point. I will get an MRI of the brain, get an EEG. Continue the patient on ventilatory support. PLAN: Start the patient on Keppra therapy IV as seizures may be a major issue. JOB# [id number] [facility]
[2017-01-11] MEDS: D5NS 1,000 ML IV SCH (03:14)
[2017-01-11] MEDS: APRESOLINE IV PRN ×2 (05:27→20:00)
[2017-01-11 05:57] LABS: Basophils # (Auto) 0.1 K/mm3 (0.0-0.1); Basophils % (Auto) 0.6 % (0.0-1.8); Hematocrit 26.3 % (35.5-45.6); Hemoglobin 8.9 gm/dl (11.8-15.2); Lymphocytes % (Auto) 13.2 % (13.4-35.0); Mean Corpuscular HGB Conc 34 % (32-34); Mean Corpuscular Hemoglobin 26 pg (28-32); Mean Corpuscular Volume 78 fl (84-94); Monocytes # (Auto) 0.8 K/mm3 (0.0-0.8); Monocytes % (Auto) 5.4 % (0.0-7.3); Platelet Count 462 K/mm3 (140-440); Red Cell Distribution Width 18.6 % (13.2-15.2)
[2017-01-11 06:14] LABS: BUN/Creatinine Ratio 17; Blood Urea Nitrogen 15 mg/dL (9-20); Hemolysis Index 1
--- NOTE | 2017-01-11 07:37 | XRay Report ---
Portable chest: Respiratory failure. Comparison is made to January 10. There is a slight coarsening of the interstitial pulmonary pattern throughout both lungs. No infiltrates and no vascular congestion. Normal-sized heart. Well-positioned endotracheal and central venous lines. No interval change noted. Impression: Stable findings.
[2017-01-11] MEDS: NOVOLOG SUB-Q SCH ×3 (07:54→23:12)
[2017-01-11] MEDS: SYNTHROID IV SCH (07:58)
[2017-01-11] MEDS: HEPARIN SUB-Q SCH ×2 (10:20→23:05)
[2017-01-11] MEDS: PEPCID IV SCH ×2 (10:20→23:03)
[2017-01-11] MEDS: NORMODYNE PO SCH ×2 (16:13→23:03)
--- NOTE | 2017-01-11 16:14 | Progress Note ---
Assessment and Plan Imp: 1. Hypoglycemia/hypothermia -> suspect due to too much insulin 2. Hypothyroidism; doubt myxedema coma with normal free T4 3. Acute respiratory failure, hypoxia 4. UTI/SIRS 5. Metabolic encephalopathy Rec: 1. No sedation 2. Rocephin; f/u cultures and send urine culture 3. Neuro work-up; may have some irreversible encephalopathy due to hypoglycemia 4. Stop steroids; no clear indication 5. Caution w/ large dose of IV Synthroid (consider changing to PO); see #2 above 6. GI/DVT PPx 7. Guarded prognosis No family present. Subjective Date of service: 01/11/17 Principal diagnosis: Acute respiratory failure Interval history: No events. On vent. Unresponsive. Active Medications Dextrose (D50w (25gm) Syringe) 50 ml IV PRN PRN PRN Reason: Hypoglycemia Last Admin: 01/10/17 06:37 Dose: 50 ml Famotidine (Pepcid) 20 mg IV BID [facility] Last Admin: 01/10/17 23:59 Dose: 20 mg Heparin Sodium (Porcine) (Heparin) 5,000 unit SUB-Q Q12HR [facility] Hydralazine HCl (Apresoline) 10 mg IV Q4HR PRN PRN Reason: Hypertension Last Admin: 01/11/17 05:27 Dose: 10 mg Hydrophilic Ointment (Vaseline Lip Therapy) 1 applic TP Q2HR PRN PRN Reason: Dry Lips Dextrose/Sodium Chloride (D5ns) 1,000 mls @ 100 mls/hr IV DIRECT [facility] Last Admin: 01/11/17 03:14 Dose: 100 mls/hr Ceftriaxone Sodium (Rocephin/Ns 1 Gm/50 Ml) 1 gm in 50 mls @ 100 mls/hr IV Q24H [facility] PRN Reason: Protocol Last Admin: 01/11/17 00:00 Dose: 100 mls/hr Insulin Aspart (Novolog) 0 units SUB-Q Q8HR [facility] PRN Reason: Protocol Last Admin: 01/11/17 07:54 Dose: 2 units Labetalol HCl (Normodyne) 200 mg PO BID [facility] Last Admin: 01/10/17 23:31 Dose: Not Given Levothyroxine Sodium (Synthroid) 200 mcg IV DAILY@0600 [facility] Last Admin: 01/11/17 07:58 Dose: 200 mcg Multi-Ingred Cream/Lotion/Oil/Oint (Artificial Tears Ophth Oint) 1 applic OU Q4HR PRN PRN Reason: Dry Eye(s) Sodium Chloride (Nacl 0.9% 500 Ml) 500 ml IV DIRECT [facility] Objective Vital Signs - 12hr 01/11/17 01/11/17 01/11/17 04:15 04:30 04:45 Pulse Rate 90 85 84 Respiratory 14 12 12 Rate Blood Pressure 163/87 154/84 156/83 O2 Sat by Pulse 100 99 100 Oximetry 01/11/17 01/11/17 01/11/17 05:00 05:15 05:30 Pulse Rate 86 90 89 Respiratory 12 14 14 Rate Blood Pressure 158/84 170/97 157/84 O2 Sat by Pulse 99 98 98 Oximetry 01/11/17 01/11/17 01/11/17 05:45 06:00 06:10 Pulse Rate 89 85 85 Respiratory 14 10 L 11 L Rate Blood Pressure 135/77 126/75 126/75 O2 Sat by Pulse 99 99 100 Oximetry 01/11/17 01/11/17 01/11/17 06:15 06:20 06:26 Pulse Rate 88 85 86 Respiratory 15 10 L 10 L Rate Blood Pressure 136/80 136/80 136/80 O2 Sat by Pulse 99 100 100 Oximetry 01/11/17 01/11/17 01/11/17 06:30 06:36 06:40 Pulse Rate 85 84 83 Respiratory 11 L 11 L 10 L Rate Blood Pressure 141/78 141/78 141/78 O2 Sat by Pulse 99 100 100 Oximetry 01/11/17 01/11/17 01/11/17 06:45 06:50 06:56 Pulse Rate 83 85 84 Respiratory 11 L 11 L 11 L Rate Blood Pressure 143/79 143/79 141/78 O2 Sat by Pulse 99 100 100 Oximetry 01/11/17 01/11/17 01/11/17 07:00 07:06 07:10 Pulse Rate 86 84 84 Respiratory 10 L 11 L 10 L Rate Blood Pressure 152/83 152/83 152/83 O2 Sat by Pulse 99 100 100 Oximetry 01/11/17 01/11/17 01/11/17 07:15 07:20 07:26 Pulse Rate 84 85 84 Respiratory 13 11 L 11 L Rate Blood Pressure 146/85 146/85 146/85 O2 Sat by Pulse 99 100 100 Oximetry 01/11/17 01/11/17 01/11/17 07:30 07:36 07:40 Pulse Rate 83 83 85 Respiratory 11 L 11 L 10 L Rate Blood Pressure 151/78 151/78 151/78 O2 Sat by Pulse 99 100 100 Oximetry 01/11/17 01/11/17 01/11/17 07:45 07:50 07:56 Pulse Rate 86 82 85 Respiratory 12 11 L 11 L Rate Blood Pressure 153/83 153/83 153/83 O2 Sat by Pulse 98 100 100 Oximetry 01/11/17 01/11/17 01/11/17 08:00 08:06 08:10 Pulse Rate 85 85 84 Respiratory 11 L 11 L 11 L Rate Blood Pressure 153/81 153/81 153/81 O2 Sat by Pulse 99 100 100 Oximetry 01/11/17 01/11/17 01/11/17 08:15 08:20 08:26 Pulse Rate 84 84 84 Respiratory 12 11 L 11 L Rate Blood Pressure 155/86 155/86 155/86 O2 Sat by Pulse 99 100 100 Oximetry 01/11/17 01/11/17 01/11/17 08:27 08:30 08:36 Pulse Rate 85 83 83 Respiratory 12 11 L Rate Blood Pressure 126/75 158/82 158/82 O2 Sat by Pulse 99 99 100 Oximetry 01/11/17 01/11/17 01/11/17 08:40 08:45 08:50 Pulse Rate 84 82 83 Respiratory 12 11 L 11 L Rate Blood Pressure 158/82 156/83 156/83 O2 Sat by Pulse 100 99 100 Oximetry 01/11/17 01/11/17 01/11/17 08:56 09:00 10:08 Pulse Rate 82 83 92 H Respiratory 11 L 11 L 18 Rate Blood Pressure 156/83 160/84 161/87 O2 Sat by Pulse 100 99 100 Oximetry 01/11/17 01/11/17 01/11/17 10:10 10:12 10:14 Pulse Rate 92 H 90 90 Respiratory 17 16 17 Rate Blood Pressure 161/87 161/87 161/87 O2 Sat by Pulse 100 100 100 Oximetry 01/11/17 01/11/17 01/11/17 10:16 10:18 10:20 Pulse Rate 92 H 90 90 Respiratory 15 15 14 Rate Blood Pressure 180/93 180/93 180/93 O2 Sat by Pulse 100 100 100 Oximetry 01/11/17 01/11/17 01/11/17 10:22 10:24 10:26 Pulse Rate 89 89 89 Respiratory 13 11 L 13 Rate Blood Pressure 180/93 180/93 180/93 O2 Sat by Pulse 100 100 100 Oximetry 01/11/17 01/11/17 01/11/17 10:28 10:30 10:32 Pulse Rate 88 88 88 Respiratory 12 12 14 Rate Blood Pressure 180/93 164/89 164/89 O2 Sat by Pulse 100 99 100 Oximetry 01/11/17 01/11/17 01/11/17 10:34 10:36 10:38 Pulse Rate 86 87 87 Respiratory 13 13 12 Rate Blood Pressure 164/89 164/89 164/89 O2 Sat by Pulse 100 100 100 Oximetry 01/11/17 01/11/17 01/11/17 10:40 10:42 10:44 Pulse Rate 86 85 84 Respiratory 12 12 11 L Rate Blood Pressure 164/89 164/89 O2 Sat by Pulse 100 100 100 Oximetry 01/11/17 01/11/17 01/11/17 10:47 10:49 10:51 Pulse Rate 82 81 82 Respiratory 12 10 L 11 L Rate Blood Pressure 159/86 159/86 159/86 O2 Sat by Pulse 100 100 100 Oximetry 01/11/17 01/11/17 01/11/17 10:52 10:55 10:57 Pulse Rate 81 80 81 Respiratory 12 12 12 Rate Blood Pressure 164/89 164/89 164/89 O2 Sat by Pulse 100 100 100 Oximetry 01/11/17 01/11/17 01/11/17 10:59 11:00 11:03 Pulse Rate 81 81 80 Respiratory 12 10 L 14 Rate Blood Pressure 164/89 151/81 151/81 O2 Sat by Pulse 100 99 100 Oximetry 01/11/17 01/11/17 01/11/17 11:05 11:07 11:09 Pulse Rate 80 81 81 Respiratory 11 L 11 L 14 Rate Blood Pressure 151/81 151/81 151/81 O2 Sat by Pulse 100 100 100 Oximetry 01/11/17 01/11/17 01/11/17 11:11 11:13 11:15 Pulse Rate 81 79 81 Respiratory 11 L 11 L 10 L Rate Blood Pressure 151/81 151/81 147/81 O2 Sat by Pulse 100 100 99 Oximetry 10/06/2501/11/17 01/11/17 11:17 11:19 11:21 Pulse Rate 78 80 83 Respiratory 13 12 13 Rate Blood Pressure 147/81 147/81 147/81 O2 Sat by Pulse 100 100 100 Oximetry 01/11/17 01/11/17 01/11/17 11:23 11:25 11:27 Pulse Rate 88 89 92 H Respiratory 13 14 13 Rate Blood Pressure 147/81 147/81 147/81 O2 Sat by Pulse 100 100 100 Oximetry 01/11/17 01/11/17 01/11/17 11:29 11:31 11:33 Pulse Rate 93 H 93 H 91 H Respiratory 13 13 14 Rate Blood Pressure 147/81 186/89 186/89 O2 Sat by Pulse 100 97 100 Oximetry 01/11/17 01/11/17 01/11/17 11:35 11:37 11:39 Pulse Rate 91 H 89 89 Respiratory 13 12 13 Rate Blood Pressure 186/89 186/89 186/89 O2 Sat by Pulse 100 100 100 Oximetry 01/11/17 01/11/17 01/11/17 11:41 11:43 11:45 Pulse Rate 89 89 89 Respiratory 13 14 13 Rate Blood Pressure 186/89 186/89 182/93 O2 Sat by Pulse 100 100 100 Oximetry 01/11/17 01/11/17 01/11/17 11:47 11:49 11:51 Pulse Rate 87 86 86 Respiratory 12 10 L 12 Rate Blood Pressure 182/93 182/93 182/93 O2 Sat by Pulse 100 100 100 Oximetry 01/11/17 01/11/17 01/11/17 11:53 11:55 11:57 Pulse Rate 83 85 83 Respiratory 11 L 11 L 11 L Rate Blood Pressure 182/93 182/93 182/93 O2 Sat by Pulse 100 100 100 Oximetry 01/11/17 01/11/17 01/11/17 11:59 12:00 12:01 Pulse Rate 83 82 80 Respiratory 10 L 10 L 12 Rate Blood Pressure 182/93 162/85 162/85 O2 Sat by Pulse 100 100 100 Oximetry 01/11/17 01/11/17 01/11/17 12:03 12:05 12:07 Pulse Rate 80 79 81 Respiratory 11 L 13 11 L Rate Blood Pressure 162/85 162/85 162/85 O2 Sat by Pulse 100 100 100 Oximetry 01/11/17 01/11/1701/11/17 12:09 12:11 12:13 Pulse Rate 79 79 79 Respiratory 12 10 L 10 L Rate Blood Pressure 162/85 162/85 162/85 O2 Sat by Pulse 100 100 100 Oximetry 01/11/17 01/11/17 01/11/17 12:15 12:17 12:19 Pulse Rate 79 78 79 Respiratory 11 L 12 13 Rate Blood Pressure 152/77 152/77 152/77 O2 Sat by Pulse 100 100 100 Oximetry 01/11/17 01/11/17 01/11/17 12:21 12:23 12:25 Pulse Rate 83 79 78 Respiratory 12 15 12 Rate Blood Pressure 152/77 152/77 152/77 O2 Sat by Pulse 100 100 100 Oximetry 01/11/17 01/11/17 01/11/17 12:27 12:29 12:30 Pulse Rate 78 78 78 Respiratory 11 L 10 L 10 L Rate Blood Pressure 152/77 152/77 154/82 O2 Sat by Pulse 100 100 99 Oximetry 01/11/17 01/11/17 01/11/17 12:31 12:33 12:35 Pulse Rate 78 80 79 Respiratory 12 10 L 13 Rate Blood Pressure 154/82 154/82 154/82 O2 Sat by Pulse 100 100 100 Oximetry 01/11/17 01/11/17 01/11/17 12:37 12:39 12:41 Pulse Rate 79 76 78 Respiratory 9 L 14 10 L Rate Blood Pressure 154/82 154/82 154/82 O2 Sat by Pulse 100 100 100 Oximetry 01/11/17 01/11/17 01/11/17 12:43 12:45 12:47 Pulse Rate 79 84 87 Respiratory 11 L 12 13 Rate Blood Pressure 154/82 164/88 164/88 O2 Sat by Pulse 100 100 100 Oximetry 01/11/17 01/11/17 01/11/17 12:49 12:51 12:53 Pulse Rate 88 91 H 92 H Respiratory 14 16 16 Rate Blood Pressure 164/88 164/88 164/88 O2 Sat by Pulse 100 100 100 Oximetry 01/11/17 01/11/17 01/11/17 12:54 12:55 12:57 Pulse Rate 90 88 87 Respiratory 13 13 13 Rate Blood Pressure 188/95 188/95 188/95 O2 Sat by Pulse 99 100 100 Oximetry 01/11/17 01/11/17 01/11/17 12:59 13:00 13:01 Pulse Rate 87 86 86 Respiratory 12 12 13 Rate Blood Pressure 188/95 179/94 179/94 O2 Sat by Pulse 100 99 100 Oximetry 01/11/17 01/11/17 01/11/17 13:03 13:05 13:07 Pulse Rate 86 83 84 Respiratory 11 L 12 12 Rate Blood Pressure 179/94 179/94 179/94 O2 Sat by Pulse 100 100 100 Oximetry 01/11/17 01/11/17 01/11/17 13:09 13:11 13:13 Pulse Rate 83 81 79 Respiratory 11 L 10 L 11 L Rate Blood Pressure 179/94 179/94 179/94 O2 Sat by Pulse 100 100 100 Oximetry 01/11/17 01/11/17 01/11/17 13:15 13:17 13:19 Pulse Rate 77 78 78 Respiratory 16 10 L 12 Rate Blood Pressure 179/94 179/94 179/94 O2 Sat by Pulse 100 100 100 Oximetry 01/11/17 01/11/17 01/11/17 13:21 13:23 13:25 Pulse Rate 77 77 79 Respiratory 12 12 12 Rate Blood Pressure 179/94 179/94 179/94 O2 Sat by Pulse 100 100 100 Oximetry 01/11/17 01/11/17 01/11/17 13:27 13:29 13:30 Pulse Rate 80 78 79 Respiratory 11 L 12 11 L Rate Blood Pressure 179/94 179/94 162/86 O2 Sat by Pulse 100 100 100 Oximetry 01/11/17 01/11/17 01/11/17 13:31 13:33 13:35 Pulse Rate 82 80 78 Respiratory 12 11 L 11 L Rate Blood Pressure 162/86 162/86 162/86 O2 Sat by Pulse 100 100 100 Oximetry 01/11/17 01/11/17 01/11/17 13:37 13:39 13:41 Pulse Rate 77 78 77 Respiratory 11 L 10 L 11 L Rate Blood Pressure 162/86 162/86 162/86 O2 Sat by Pulse 100 100 100 Oximetry 01/11/17 01/11/17 01/11/17 13:43 13:45 13:47 Pulse Rate 78 82 77 Respiratory 11 L 16 10 L Rate Blood Pressure 162/86 162/86 162/86 O2 Sat by Pulse 100 100 100 Oximetry 01/11/17 01/11/17 01/11/17 13:49 13:51 13:52 Pulse Rate 79 77 79 Respiratory 10 L 10 L 10 L Rate Blood Pressure 162/86 162/86 162/86 O2 Sat by Pulse 100 100 100 Oximetry 01/11/17 01/11/17 01/11/17 13:53 13:55 13:57 Pulse Rate 80 78 77 Respiratory 10 L 10 L 11 L Rate Blood Pressure 162/86 162/86 162/86 O2 Sat by Pulse 100 100 100 Oximetry 01/11/17 01/11/17 01/11/17 13:59 14:00 14:01 Pulse Rate 79 78 78 Respiratory 11 L 11 L 11 L Rate Blood Pressure 162/86 166/87 166/87 O2 Sat by Pulse 100 100 100 Oximetry 01/11/17 01/11/17 01/11/17 14:03 14:05 14:07 Pulse Rate 78 80 79 Respiratory 11 L 11 L 11 L Rate Blood Pressure 166/87 162/86 162/86 O2 Sat by Pulse 100 100 100 Oximetry 01/11/17 01/11/17 01/11/17 14:09 14:11 14:13 Pulse Rate 79 80 79 Respiratory 11 L 11 L 11 L Rate Blood Pressure 162/86 162/86 162/86 O2 Sat by Pulse 100 100 100 Oximetry 01/11/17 01/11/17 01/11/17 14:15 14:17 14:19 Pulse Rate 78 76 78 Respiratory 12 11 L 10 L Rate Blood Pressure 162/86 162/86 162/86 O2 Sat by Pulse 100 100 100 Oximetry 01/11/17 01/11/17 01/11/17 14:21 14:23 14:25 Pulse Rate 76 78 78 Respiratory 11 L 11 L 11 L Rate Blood Pressure 162/86 162/86 162/86 O2 Sat by Pulse 100 100 100 Oximetry 01/11/17 01/11/17 01/11/17 14:27 14:29 14:30 Pulse Rate 78 81 85 Respiratory 10 L 11 L 14 Rate Blood Pressure 162/86 162/86 164/87 O2 Sat by Pulse 100 100 98 Oximetry 01/11/17 01/11/17 01/11/17 14:31 14:33 14:35 Pulse Rate 86 86 87 Respiratory 15 14 15 Rate Blood Pressure 164/87 164/87 164/87 O2 Sat by Pulse 100 100 100 Oximetry Constitutional: other (intubated, critically ill on vent) Eyes: non-icteric ENT: oropharynx moist Neck: supple Effort: normal Ascultation: Bilateral: clear Cardiovascular: regular rate and rhythm (no mrg) Gastrointestinal: normoactive bowel sounds, soft, non-tender, non-distended Integumentary: rash (lesions all over trunk/extremities (most appear to be scabs )) Extremities: no cyanosis, no edema, pink and warm Neurologic: other (unresponsive) Psychiatric: other (unable to obtain) CBC and BMP: 01/11/17 05:20 01/11/17 05:20 ABG, PT/INR, D-dimer: ABG POC ABG pH 7.463 (7.35-7.45) H 01/11/17 04:06 POC ABG pCO2 26.2 (35-45) L 01/11/17 04:06 POC ABG pO2 185 (80-105) H 01/11/17 04:06 POC ABG HCO3 18.7 01/11/17 04:06 POC ABG Total CO2 20 01/11/17 04:06 POC ABG O2 Sat 100 01/11/17 04:06 PT/INR, D-dimer PT 14.4 Sec. (12.2-14.9) 01/09/17 10:16 INR 1.07 (0.87-1.13) 01/09/17 10:16 Abnormal lab findings: Abnormal Labs 01/09/17 01/09/17 01/09/17 12:49 13:13 14:21 WBC RBC Hgb Hct MCV MCH RDW Plt Count Lymph % (Auto) Seg Neutrophils % Seg Neuts % (Manual) Lymphocytes % (Manual) Seg Neutrophils # Seg Neutrophils # Man Lymphocytes # (Manual) POC ABG pH POC ABG pCO2 POC ABG pO2 Potassium Chloride Carbon Dioxide BUN Glucose POC Glucose < 40 L 128 H 65 L Calcium 01/09/17 01/09/17 01/09/17 15:09 16:28 17:14 WBC RBC Hgb Hct MCV MCH RDW Plt Count Lymph % (Auto) Seg Neutrophils % Seg Neuts % (Manual) Lymphocytes % (Manual) Seg Neutrophils # Seg Neutrophils # Man Lymphocytes # (Manual) POC ABG pH POC ABG pCO2 POC ABG pO2 Potassium Chloride Carbon Dioxide BUN Glucose POC Glucose 120 H 44 L 112 H Calcium 01/10/17 01/10/17 01/10/17 04:30 04:30 05:41 WBC 24.1 H RBC 3.38 L Hgb 8.5 L Hct 26.0 L MCV 77 L MCH 25 L RDW 17.9 H Plt Count 474 H Lymph % (Auto) Seg Neutrophils % Seg Neuts % (Manual) 88.0 H Lymphocytes % (Manual) 4.0 L Seg Neutrophils # Seg Neutrophils # Man 21.2 H Lymphocytes # (Manual) 1.0 L POC ABG pH POC ABG pCO2 POC ABG pO2 Potassium Chloride Carbon Dioxide 17 L BUN 27 H Glucose POC Glucose 68 L Calcium 7.5 L 01/10/17 01/10/17 01/10/17 05:45 07:47 10:50 WBC RBC Hgb Hct MCV MCH RDW Plt Count Lymph % (Auto) Seg Neutrophils % Seg Neuts % (Manual) Lymphocytes % (Manual) Seg Neutrophils # Seg Neutrophils # Man Lymphocytes # (Manual) POC ABG pH POC ABG pCO2 26.6 L POC ABG pO2 207 H Potassium Chloride Carbon Dioxide BUN Glucose POC Glucose 148 H 165 H Calcium 01/10/17 01/10/17 01/10/17 13:41 20:20 21:39 WBC RBC Hgb Hct MCV MCH RDW Plt Count Lymph % (Auto) Seg Neutrophils % Seg Neuts % (Manual) Lymphocytes % (Manual) Seg Neutrophils # Seg Neutrophils # Man Lymphocytes # (Manual) POC ABG pH POC ABG pCO2 POC ABG pO2 Potassium Chloride Carbon Dioxide BUN Glucose POC Glucose 114 H 150 H 175 H Calcium 01/10/17 01/11/17 01/11/17 23:24 00:19 04:06 WBC RBC Hgb Hct MCV MCH RDW Plt Count Lymph % (Auto) Seg Neutrophils % Seg Neuts % (Manual) Lymphocytes % (Manual) Seg Neutrophils # Seg Neutrophils # Man Lymphocytes # (Manual) POC ABG pH 7.463 H POC ABG pCO2 26.2 L POC ABG pO2 185 H Potassium Chloride Carbon Dioxide BUN Glucose POC Glucose 155 H 163 H Calcium 01/11/17 01/11/17 01/11/17 05:20 05:20 06:21 WBC 15.2 H RBC 3.40 L Hgb 8.9 L Hct 26.3 L MCV 78 L MCH 26 L RDW 18.6 H Plt Count 462 H Lymph % (Auto) 13.2 L Seg Neutrophils % 80.8 H Seg Neuts % (Manual) Lymphocytes % (Manual) Seg Neutrophils # 12.3 H Seg Neutrophils # Man Lymphocytes # (Manual) POC ABG pH POC ABG pCO2 POC ABG pO2 Potassium 3.4 L Chloride 111.5 H Carbon Dioxide 17 L BUN Glucose 147 H POC Glucose 139 H Calcium 8.0 L 01/11/17 01/11/17 07:57 11:46 WBC RBC Hgb Hct MCV MCH RDW Plt Count Lymph % (Auto) Seg Neutrophils % Seg Neuts % (Manual) Lymphocytes % (Manual) Seg Neutrophils # Seg Neutrophils # Man Lymphocytes # (Manual) POC ABG pH POC ABG pCO2 POC ABG pO2 Potassium Chloride Carbon Dioxide BUN Glucose POC Glucose 188 H 199 H Calcium Chest x-ray: report reviewed, image reviewed
--- NOTE | 2017-01-11 16:41 | Progress Note ---
Assessment and Plan Assessment and plan: Anoxic brain injury Metabolic encephalopathy Hypoglycemia Acute respiratory failure Myxedema coma Leukocytosis hyponatremia, resolved - Patient is intubated and on mechanical ventilation - Patient is on IV fluids, hydrocortisone, levothyroxine - Patient is on D5W - Blood pressure is on the high side - Was on IV antibiotics, now discontinued, will follow blood cultures - Neurology consult appreciated - No family member found Patient's prognosis is very poor. DVT prophylaxis - On heparin Disposition - Continue ICU care History Interval history: Patient was seen and evaluated this morning, patient is comatose, on mechanical ventilation. Hospitalist Physical - Physical exam Narrative exam: Intubated and on mechanical ventilation. The patient appeared well nourished and normally developed. Vital signs as documented. Head exam is unremarkable. No scleral icterus . Neck is without jugular venous distension, thyromegaly, or carotid bruits. Lungs are clear to auscultation. Cardiac exam reveals regular rate and Rhythm. Abdominal exam reveals normal bowel sounds. Extremities are nonedematous and both femoral and pedal pulses are normal. 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 - Constitutional Vitals: Temp Pulse Resp BP Pulse Ox 97.5 F L 87 15 164/87 100 01/11/17 03:27 01/11/17 14:35 01/11/17 14:35 01/11/17 14:35 01/11/17 14:35 General appearance: Present: severe distress Results - Labs CBC & Chem 7: 01/11/17 05:20 01/11/17 05:20 Labs: Laboratory Last Values WBC 15.2 K/mm3 (4.5-11.0) H 01/11/17 05:20 RBC 3.40 M/mm3 (3.65-5.03) L 01/11/17 05:20 Hgb 8.9 gm/dl (11.8-15.2) L 01/11/17 05:20 Hct 26.3 % (35.5-45.6) L 01/11/17 05:20 MCV 78 fl (84-94) L 01/11/17 05:20 MCH 26 pg (28-32) L 01/11/17 05:20 MCHC 34 % (32-34) 01/11/17 05:20 RDW 18.6 % (13.2-15.2) H 01/11/17 05:20 Plt Count 462 K/mm3 (140-440) H 01/11/17 05:20 Lymph % (Auto) 13.2 % (13.4-35.0) L 01/11/17 05:20 [place] % (Auto) 5.4 % (0.0-7.3) 01/11/17 05:20 Eos % (Auto) 0.0 % (0.0-4.3) 01/11/17 05:20 Baso % (Auto) 0.6 % (0.0-1.8) 01/11/17 05:20 Lymph # 2.0 K/mm3 (1.2-5.4) 01/11/17 05:20 [place] # 0.8 K/mm3 (0.0-0.8) 01/11/17 05:20 Eos # 0.0 K/mm3 (0.0-0.4) 01/11/17 05:20 Baso # 0.1 K/mm3 (0.0-0.1) 01/11/17 05:20 Add Manual Diff Complete 01/10/17 04:30 Total Counted 100 01/10/17 04:30 Seg Neutrophils % 80.8 % (40.0-70.0) H 01/11/17 05:20 Seg Neuts % (Manual) 88.0 % (40.0-70.0) H 01/10/17 04:30 Band Neutrophils % 7.0 % 01/10/17 04:30 Lymphocytes % (Manual) 4.0 % (13.4-35.0) L 01/10/17 04:30 Reactive Lymphs % (Man) 0 % 01/10/17 04:30 Monocytes % (Manual) 1.0 % (0.0-7.3) 01/10/17 04:30 Eosinophils % (Manual) 0 % (0.0-4.3) 01/10/17 04:30 Basophils % (Manual) 0 % (0.0-1.8) 01/10/17 04:30 Metamyelocytes % 0 % 01/10/17 04:30 Myelocytes % 0 % 01/10/17 04:30 Promyelocytes % 0 % 01/10/17 04:30 Blast Cells % 0 % 01/10/17 04:30 Nucleated RBC % Not Reportable 01/10/17 04:30 Seg Neutrophils # 12.3 K/mm3 (1.8-7.7) H 01/11/17 05:20 Seg Neutrophils # Man 21.2 K/mm3 (1.8-7.7) H 01/10/17 04:30 Band Neutrophils # 1.7 K/mm3 01/10/17 04:30 Lymphocytes # (Manual) 1.0 K/mm3 (1.2-5.4) L 01/10/17 04:30 Abs React Lymphs (Man) 0.0 K/mm3 01/10/17 04:30 Monocytes # (Manual) 0.2 K/mm3 (0.0-0.8) 01/10/17 04:30 Eosinophils # (Manual) 0.0 K/mm3 (0.0-0.4) 01/10/17 04:30 Basophils # (Manual) 0.0 K/mm3 (0.0-0.1) 01/10/17 04:30 Metamyelocytes # 0.0 K/mm3 01/10/17 04:30 Myelocytes # 0.0 K/mm3 01/10/17 04:30 Promyelocytes # 0.0 K/mm3 01/10/17 04:30 Blast Cells # 0.0 K/mm3 01/10/17 04:30 WBC Morphology Not Reportable 01/10/17 04:30 Hypersegmented Neuts Not Reportable 01/10/17 04:30 Hyposegmented Neuts Not Reportable 01/10/17 04:30 Hypogranular Neuts Not Reportable 01/10/17 04:30 Smudge Cells Not Reportable 01/10/17 04:30 Toxic Granulation Not Reportable 01/10/17 04:30 Toxic Vacuolation Not Reportable 01/10/17 04:30 Dohle Bodies Not Reportable 01/10/17 04:30 Pelger-Huet Anomaly Not Reportable 01/10/17 04:30 [place] Rods Not Reportable 01/10/17 04:30 Platelet Estimate Consistent w auto 01/10/17 04:30 Clumped Platelets Not Reportable 01/10/17 04:30 Plt Clumps, EDTA Not Reportable 01/10/17 04:30 Large Platelets Not Reportable 01/10/17 04:30 Giant Platelets Not Reportable 01/10/17 04:30 Platelet Satelliting Not Reportable 01/10/17 04:30 Plt Morphology Comment Not Reportable 01/10/17 04:30 RBC Morphology Not Reportable 01/10/17 04:30 Dimorphic RBCs Not Reportable 01/10/17 04:30 Polychromasia Not Reportable 01/10/17 04:30 Hypochromasia 1+ 01/10/17 04:30 Poikilocytosis Not Reportable 01/10/17 04:30 Anisocytosis Not Reportable 01/10/17 04:30 Microcytosis Not Reportable 01/10/17 04:30 Macrocytosis Not Reportable 01/10/17 04:30 Spherocytes Not Reportable 01/10/17 04:30 Pappenheimer Bodies Not Reportable 01/10/17 04:30 Sickle Cells Not Reportable 01/10/17 04:30 Target Cells Not Reportable 01/10/17 04:30 Tear Drop Cells Not Reportable 01/10/17 04:30 Ovalocytes Not Reportable 01/10/17 04:30 Helmet Cells Not Reportable 01/10/17 04:30 Jarrett-New Site Bodies Not Reportable 01/10/17 04:30 [place] Rings Not Reportable 01/10/17 04:30 Jessica Cells Not Reportable 01/10/17 04:30 Bite Cells Not Reportable 01/10/17 04:30 Crenated Cell Not Reportable 01/10/17 04:30 Elliptocytes Not Reportable 01/10/17 04:30 Acanthocytes (Spur) Not Reportable 01/10/17 04:30 Rouleaux Not Reportable 01/10/17 04:30 Hemoglobin C Crystals Not Reportable 01/10/17 04:30 Schistocytes Not Reportable 01/10/17 04:30 Malaria parasites Not Reportable 01/10/17 04:30 Kyle Bodies Not Reportable 01/10/17 04:30 Hem Pathologist Commnt No 01/10/17 04:30 PT 14.4 Sec. (12.2-14.9) 01/09/17 10:16 INR 1.07 (0.87-1.13) 01/09/17 10:16 APTT 39.6 Sec. (24.2-36.6) H 01/09/17 10:16 POC ABG pH 7.463 (7.35-7.45) H 01/11/17 04:06 POC ABG pCO2 26.2 (35-45) L 01/11/17 04:06 POC ABG pO2 185 (80-105) H 01/11/17 04:06 POC ABG HCO3 18.7 01/11/17 04:06 POC ABG Total CO2 20 01/11/17 04:06 POC ABG O2 Sat 100 01/11/17 04:06 POC ABG Base Excess -5 01/11/17 04:06 VBG pH 7.284 (7.320-7.420) L 01/09/17 10:16 FiO2 35 % 01/11/17 04:06 Sodium 142 mmol/L (137-145) 01/11/17 05:20 Potassium 3.4 mmol/L (3.6-5.0) L 01/11/17 05:20 Chloride 111.5 mmol/L (98-107) H 01/11/17 05:20 Carbon Dioxide 17 mmol/L (22-30) L 01/11/17 05:20 Anion Gap 17 mmol/L 01/11/17 05:20 BUN 15 mg/dL (9-20) 01/11/17 05:20 Creatinine 0.9 mg/dL (0.8-1.5) 01/11/17 05:20 Estimated GFR > 60 ml/min 01/11/17 05:20 BUN/Creatinine Ratio 17 % 01/11/17 05:20 Glucose 147 mg/dL (75-100) H 01/11/17 05:20 POC Glucose 199 (70-105) H 01/11/17 11:46 Lactic Acid 1.00 mmol/L (0.7-2.0) 01/09/17 10:16 Calcium 8.0 mg/dL (8.4-10.2) L 01/11/17 05:20 Magnesium 2.10 mg/dL (1.7-2.3) 01/09/17 10:16 Total Bilirubin 0.30 mg/dL (0.1-1.2) 01/09/17 10:16 AST 25 units/L (5-40) 01/09/17 10:16 ALT 17 units/L (7-56) 01/09/17 10:16 Alkaline Phosphatase 151 units/L (35-129) H 01/09/17 10:16 Ammonia 35.0 umol/L (25-60) 01/09/17 10:16 Total Creatine Kinase 135 units/L (55-170) 01/09/17 10:16 CK-MB (CK-2) 7.1 ng/mL (0.0-4.0) H 01/09/17 10:16 CK-MB (CK-2) Rel Index 5.2 (0-4) H 01/09/17 10:16 Troponin T < 0.010 ng/mL (0.00-0.029) 01/09/17 10:16 NT-Pro-B Natriuret Pep 602.9 pg/mL (0-900) 01/09/17 10:16 Total Protein 8.2 g/dL (6.3-8.2) 01/09/17 10:16 Albumin 3.3 g/dL (3.9-5) L 01/09/17 10:16 Albumin/Globulin Ratio 0.7 % 01/09/17 10:16 TSH 52.800 mlU/mL (0.270-4.200) H 01/09/17 10:16 Free T4 0.78 ng/dL (0.76-1.46) 01/09/17 10:16 Urine Color Yellow (Yellow) 01/09/17 10:23 Urine Turbidity Clear (Clear) 01/09/17 10:23 Urine pH 6.0 (5.0-7.0) 01/09/17 10:23 Ur Specific [place] 1.011 (1.003-1.030) 01/09/17 10:23 Urine Protein <15 mg/dl mg/dL (Negative) 01/09/17 10:23 Urine Glucose (UA) Neg mg/dL (Negative) 01/09/17 10:23 Urine Ketones Neg mg/dL (Negative) 01/09/17 10:23 Urine Blood Neg (Negative) 01/09/17 10:23 Urine Nitrite Neg (Negative) 01/09/17 10:23 Urine Bilirubin Neg (Negative) 01/09/17 10:23 Urine Urobilinogen < 2.0 mg/dL (<2.0) 01/09/17 10:23 Ur Leukocyte Esterase Lg (Negative) 01/09/17 10:23 Urine WBC (Auto) 61.0 /HPF (0.0-6.0) H 01/09/17 10:23 Urine RBC (Auto) 5.0 /HPF (0.0-6.0) 01/09/17 10:23 Urine Bacteria (Auto) 1+ /HPF (Negative) 01/09/17 10:23 Salicylates < 0.3 mg/dL (2.8-20.0) L 01/09/17 10:16 Urine Opiates Screen Presumptive negative 01/09/17 10:23 Urine Methadone Screen Presumptive negative 01/09/17 10:23 Acetaminophen < 15.0 ug/mL (10.0-30.0) 01/09/17 10:16 Ur Barbiturates Screen Presumptive negative 01/09/17 10:23 Ur Phencyclidine Scrn Presumptive negative 01/09/17 10:23 Ur Amphetamines Screen Presumptive negative 01/09/17 10:23 U Benzodiazepines Scrn Presumptive negative 01/09/17 10:23 Urine Cocaine Screen Presumptive negative 01/09/17 10:23 U Marijuana (THC) Screen Presumptive negative 01/09/17 10:23 Drugs of Abuse Note Disclamer 01/09/17 10:23 Plasma/Serum Alcohol < 0.01 gm% (0-0.07) 01/09/17 10:16
[2017-01-11] MEDS: KCL 10MEQ/100ML 10 MEQ/100 ML BAG IV SCH ×4 (18:06→22:44)
[2017-01-11] MEDS: ROCEPHIN/NS 1 GM/50 ML 1 GM/50 ML BAG IV SCH ×2 (23:03)
[2017-01-12] MEDS: SYNTHROID IV SCH (06:39)
[2017-01-12] MEDS: NOVOLOG SUB-Q SCH ×2 (06:53→15:08)
--- NOTE | 2017-01-12 09:48 | XRay Report ---
AP CHEST: HISTORY: Followup respiratory failure The endotracheal tube, nasogastric tube and right venous catheter are in adequate position. Heart size is within normal limits. The lungs are clear. No acute cardiopulmonary process is appreciated. IMPRESSION: No change since yesterday's exam.
[2017-01-12] MEDS: NORMODYNE PO SCH ×2 (11:55→22:11)
[2017-01-12] MEDS: APRESOLINE IV PRN ×2 (11:59→17:40)
--- NOTE | 2017-01-12 12:08 | Progress Note ---
Assessment and Plan Imp: 1. Hypoglycemia/hypothermia -> suspect due to too much insulin 2. Hypothyroidism; doubt myxedema coma with normal free T4 3. Acute respiratory failure, hypoxia 4. UTI/SIRS 5. Metabolic encephalopathy Rec: 1. No sedation 2. Rocephin; f/u cultures and send urine culture 3. May have some irreversible encephalopathy due to hypoglycemia; ? MRI, ? EEG, etc.; recommending discussing with neurology 4. Stopped steroids; no clear indication 5. Caution w/ large dose of IV Synthroid (consider changing to PO); see #2 above 6. GI/DVT PPx 7. Guarded prognosis No family present. Subjective Date of service: 01/12/17 Principal diagnosis: Acute respiratory failure Interval history: No events. On vent. Unresponsive. Active Medications Dextrose (D50w (25gm) Syringe) 50 ml IV PRN PRN PRN Reason: Hypoglycemia Last Admin: 01/10/17 06:37 Dose: 50 ml Famotidine (Pepcid) 20 mg IV BID [facility] Last Admin: 01/11/17 23:03 Dose: 20 mg Heparin Sodium (Porcine) (Heparin) 5,000 unit SUB-Q Q12HR [facility] Last Admin: 01/11/17 23:05 Dose: 5,000 unit Hydralazine HCl (Apresoline) 10 mg IV Q4HR PRN PRN Reason: Hypertension Last Admin: 01/12/17 11:59 Dose: 10 mg Hydrophilic Ointment (Vaseline Lip Therapy) 1 applic TP Q2HR PRN PRN Reason: Dry Lips Dextrose/Sodium Chloride (D5ns) 1,000 mls @ 100 mls/hr IV DIRECT [facility] Last Infusion: 01/12/17 06:16 Dose: 100 mls/hr Ceftriaxone Sodium (Rocephin/Ns 1 Gm/50 Ml) 1 gm in 50 mls @ 100 mls/hr IV Q24H [facility] PRN Reason: Protocol Last Admin: 01/11/17 23:03 Dose: 100 mls/hr Insulin Aspart (Novolog) 0 units SUB-Q Q8HR [facility] PRN Reason: Protocol Last Admin: 01/12/17 06:53 Dose: Not Given Labetalol HCl (Normodyne) 200 mg PO BID [facility] Last Admin: 01/12/17 11:55 Dose: Not Given Levothyroxine Sodium (Synthroid) 200 mcg IV DAILY@0600 [facility] Last Admin: 01/12/17 06:39 Dose: 200 mcg Multi-Ingred Cream/Lotion/Oil/Oint (Artificial Tears Ophth Oint) 1 applic OU Q4HR PRN PRN Reason: Dry Eye(s) Sodium Chloride (Nacl 0.9% 500 Ml) 500 ml IV DIRECT [facility] Objective Vital Signs - 12hr 01/12/17 01/12/17 01/12/17 00:30 01:00 01:30 Pulse Rate 74 70 69 Respiratory 11 L 10 L 11 L Rate Blood Pressure 148/80 136/79 128/75 O2 Sat by Pulse 98 99 98 Oximetry 01/12/17 01/12/17 01/12/17 02:00 02:30 03:00 Pulse Rate 72 68 68 Respiratory 13 12 11 L Rate Blood Pressure 128/75 132/74 138/73 O2 Sat by Pulse 99 99 98 Oximetry 01/12/17 01/12/17 01/12/17 03:30 04:00 04:30 Pulse Rate 73 74 69 Respiratory 12 14 11 L Rate Blood Pressure 142/80 147/78 151/78 O2 Sat by Pulse 98 98 98 Oximetry 01/12/17 01/12/17 01/12/17 04:59 05:00 05:30 Pulse Rate 72 72 71 Respiratory 15 14 Rate Blood Pressure 151/78 151/79 152/79 O2 Sat by Pulse 100 99 99 Oximetry 01/12/17 01/12/17 01/12/17 06:00 06:31 07:00 Pulse Rate 71 74 74 Respiratory 12 12 14 Rate Blood Pressure 158/81 158/77 177/90 O2 Sat by Pulse 100 98 99 Oximetry 01/12/17 01/12/17 01/12/17 07:30 07:45 08:00 Pulse Rate 68 66 70 Respiratory 11 L 14 Rate Blood Pressure 166/82 166/82 167/81 O2 Sat by Pulse 99 100 99 Oximetry 01/12/17 01/12/17 01/12/17 08:30 09:00 09:30 Pulse Rate 68 68 68 Respiratory 12 12 13 Rate Blood Pressure 166/78 168/80 164/81 O2 Sat by Pulse 98 99 99 Oximetry 01/12/17 01/12/17 01/12/17 10:00 10:30 11:00 Pulse Rate 69 69 70 Respiratory 15 13 15 Rate Blood Pressure 175/82 170/77 174/83 O2 Sat by Pulse 99 99 100 Oximetry 01/12/17 01/12/17 11:30 11:59 Pulse Rate 66 71 Respiratory 11 L Rate Blood Pressure 178/78 178/78 O2 Sat by Pulse 98 Oximetry Constitutional: other (intubated, critically ill on vent) Eyes: non-icteric ENT: oropharynx moist Neck: supple Effort: normal Ascultation: Bilateral: clear Cardiovascular: regular rate and rhythm (no mrg) Gastrointestinal: normoactive bowel sounds, soft, non-tender, non-distended Integumentary: rash (lesions all over trunk/extremities (most appear to be scabs )) Extremities: no cyanosis, no edema, pink and warm Neurologic: other (unresponsive) Psychiatric: other (unable to obtain) CBC and BMP: 01/11/17 05:20 01/11/17 05:20 ABG, PT/INR, D-dimer: ABG POC ABG pH 7.436 (7.35-7.45) 01/12/17 05:02 POC ABG pCO2 28.0 (35-45) L 01/12/17 05:02 POC ABG pO2 178 (80-105) H 01/12/17 05:02 POC ABG HCO3 18.8 01/12/17 05:02 POC ABG Total CO2 20 01/12/17 05:02 POC ABG O2 Sat 100 01/12/17 05:02 PT/INR, D-dimer PT 14.4 Sec. (12.2-14.9) 01/09/17 10:16 INR 1.07 (0.87-1.13) 01/09/17 10:16 Abnormal lab findings: Abnormal Labs 01/09/17 01/09/17 01/09/17 12:49 13:13 14:21 WBC RBC Hgb Hct MCV MCH RDW Plt Count Lymph % (Auto) Seg Neutrophils % Seg Neuts % (Manual) Lymphocytes % (Manual) Seg Neutrophils # Seg Neutrophils # Man Lymphocytes # (Manual) POC ABG pH POC ABG pCO2 POC ABG pO2 Potassium Chloride Carbon Dioxide BUN Glucose POC Glucose < 40 L 128 H 65 L Calcium 01/09/17 01/09/17 01/09/17 15:09 16:28 17:14 WBC RBC Hgb Hct MCV MCH RDW Plt Count Lymph % (Auto) Seg Neutrophils % Seg Neuts % (Manual) Lymphocytes % (Manual) Seg Neutrophils # Seg Neutrophils # Man Lymphocytes # (Manual) POC ABG pH POC ABG pCO2 POC ABG pO2 Potassium Chloride Carbon Dioxide BUN Glucose POC Glucose 120 H 44 L 112 H Calcium 01/10/17 01/10/17 01/10/17 04:30 04:30 05:41 WBC 24.1 H RBC 3.38 L Hgb 8.5 L Hct 26.0 L MCV 77 L MCH 25 L RDW 17.9 H Plt Count 474 H Lymph % (Auto) Seg Neutrophils % Seg Neuts % (Manual) 88.0 H Lymphocytes % (Manual) 4.0 L Seg Neutrophils # Seg Neutrophils # Man 21.2 H Lymphocytes # (Manual) 1.0 L POC ABG pH POC ABG pCO2 POC ABG pO2 Potassium Chloride Carbon Dioxide 17 L BUN 27 H Glucose POC Glucose 68 L Calcium 7.5 L 01/10/17 01/10/17 01/10/17 05:45 07:47 10:50 WBC RBC Hgb Hct MCV MCH RDW Plt Count Lymph % (Auto) Seg Neutrophils % Seg Neuts % (Manual) Lymphocytes % (Manual) Seg Neutrophils # Seg Neutrophils # Man Lymphocytes # (Manual) POC ABG pH POC ABG pCO2 26.6 L POC ABG pO2 207 H Potassium Chloride Carbon Dioxide BUN Glucose POC Glucose 148 H 165 H Calcium 01/10/17 01/10/17 01/10/17 13:41 20:20 21:39 WBC RBC Hgb Hct MCV MCH RDW Plt Count Lymph % (Auto) Seg Neutrophils % Seg Neuts % (Manual) Lymphocytes % (Manual) Seg Neutrophils # Seg Neutrophils # Man Lymphocytes # (Manual) POC ABG pH POC ABG pCO2 POC ABG pO2 Potassium Chloride Carbon Dioxide BUN Glucose POC Glucose 114 H 150 H 175 H Calcium 01/10/17 01/11/17 01/11/17 23:24 00:19 04:06 WBC RBC Hgb Hct MCV MCH RDW Plt Count Lymph % (Auto) Seg Neutrophils % Seg Neuts % (Manual) Lymphocytes % (Manual) Seg Neutrophils # Seg Neutrophils # Man Lymphocytes # (Manual) POC ABG pH 7.463 H POC ABG pCO2 26.2 L POC ABG pO2 185 H Potassium Chloride Carbon Dioxide BUN Glucose POC Glucose 155 H 163 H Calcium 01/11/17 01/11/17 01/11/17 05:20 05:20 06:21 WBC 15.2 H RBC 3.40 L Hgb 8.9 L Hct 26.3 L MCV 78 L MCH 26 L RDW 18.6 H Plt Count 462 H Lymph % (Auto) 13.2 L Seg Neutrophils % 80.8 H Seg Neuts % (Manual) Lymphocytes % (Manual) Seg Neutrophils # 12.3 H Seg Neutrophils # Man Lymphocytes # (Manual) POC ABG pH POC ABG pCO2 POC ABG pO2 Potassium 3.4 L Chloride 111.5 H Carbon Dioxide 17 L BUN Glucose 147 H POC Glucose 139 H Calcium 8.0 L 01/11/17 01/11/17 01/11/17 07:57 11:46 16:50 WBC RBC Hgb Hct MCV MCH RDW Plt Count Lymph % (Auto) Seg Neutrophils % Seg Neuts % (Manual) Lymphocytes % (Manual) Seg Neutrophils # Seg Neutrophils # Man Lymphocytes # (Manual) POC ABG pH POC ABG pCO2 POC ABG pO2 Potassium Chloride Carbon Dioxide BUN Glucose POC Glucose 188 H 199 H 235 H Calcium 01/11/17 01/12/17 01/12/17 23:15 05:02 06:56 WBC RBC Hgb Hct MCV MCH RDW Plt Count Lymph % (Auto) Seg Neutrophils % Seg Neuts % (Manual) Lymphocytes % (Manual) Seg Neutrophils # Seg Neutrophils # Man Lymphocytes # (Manual) POC ABG pH POC ABG pCO2 28.0 L POC ABG pO2 178 H Potassium Chloride Carbon Dioxide BUN Glucose POC Glucose 155 H 119 H Calcium Chest x-ray: report reviewed, image reviewed
[2017-01-12] MEDS: HEPARIN SUB-Q SCH ×3 (14:57→22:18)
[2017-01-12] MEDS: PEPCID IV SCH ×2 (15:10→22:11)
--- NOTE | 2017-01-12 15:39 | Progress Note ---
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 DVT prophylaxis - On heparin Disposition - Continue ICU care CODE STATUS full Prognosis - Poor History Interval history: Patient was seen and evaluated this morning, patient is comatose, on mechanical ventilation, not on sedation. Hospitalist Physical - Physical exam Narrative exam: Intubated and on mechanical ventilation. The patient appeared well nourished and normally developed. Vital signs as documented. Head exam is unremarkable. No scleral icterus . Neck is without jugular venous distension, thyromegaly, or carotid bruits. Lungs are clear to auscultation. Cardiac exam reveals regular rate and Rhythm. Abdominal exam reveals normal bowel sounds. Extremities are nonedematous and both femoral and pedal pulses are normal. 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 Pupils are not dilated, but non reactive to light. - Constitutional Vitals: Temp Pulse Resp BP Pulse Ox 98.5 F 71 11 L 178/78 98 01/11/17 19:49 01/12/17 11:59 01/12/17 11:30 01/12/17 11:59 01/12/17 11:30 General appearance: Present: severe distress Results - Labs CBC & Chem 7: 01/11/17 05:20 01/11/17 05:20 Labs: Laboratory Last Values WBC 15.2 K/mm3 (4.5-11.0) H 01/11/17 05:20 RBC 3.40 M/mm3 (3.65-5.03) L 01/11/17 05:20 Hgb 8.9 gm/dl (11.8-15.2) L 01/11/17 05:20 Hct 26.3 % (35.5-45.6) L 01/11/17 05:20 MCV 78 fl (84-94) L 01/11/17 05:20 MCH 26 pg (28-32) L 01/11/17 05:20 MCHC 34 % (32-34) 01/11/17 05:20 RDW 18.6 % (13.2-15.2) H 01/11/17 05:20 Plt Count 462 K/mm3 (140-440) H 01/11/17 05:20 Lymph % (Auto) 13.2 % (13.4-35.0) L 01/11/17 05:20 [place] % (Auto) 5.4 % (0.0-7.3) 01/11/17 05:20 Eos % (Auto) 0.0 % (0.0-4.3) 01/11/17 05:20 Baso % (Auto) 0.6 % (0.0-1.8) 01/11/17 05:20 Lymph # 2.0 K/mm3 (1.2-5.4) 01/11/17 05:20 [place] # 0.8 K/mm3 (0.0-0.8) 01/11/17 05:20 Eos # 0.0 K/mm3 (0.0-0.4) 01/11/17 05:20 Baso # 0.1 K/mm3 (0.0-0.1) 01/11/17 05:20 Add Manual Diff Complete 01/10/17 04:30 Total Counted 100 01/10/17 04:30 Seg Neutrophils % 80.8 % (40.0-70.0) H 01/11/17 05:20 Seg Neuts % (Manual) 88.0 % (40.0-70.0) H 01/10/17 04:30 Band Neutrophils % 7.0 % 01/10/17 04:30 Lymphocytes % (Manual) 4.0 % (13.4-35.0) L 01/10/17 04:30 Reactive Lymphs % (Man) 0 % 01/10/17 04:30 Monocytes % (Manual) 1.0 % (0.0-7.3) 01/10/17 04:30 Eosinophils % (Manual) 0 % (0.0-4.3) 01/10/17 04:30 Basophils % (Manual) 0 % (0.0-1.8) 01/10/17 04:30 Metamyelocytes % 0 % 01/10/17 04:30 Myelocytes % 0 % 01/10/17 04:30 Promyelocytes % 0 % 01/10/17 04:30 Blast Cells % 0 % 01/10/17 04:30 Nucleated RBC % Not Reportable 01/10/17 04:30 Seg Neutrophils # 12.3 K/mm3 (1.8-7.7) H 01/11/17 05:20 Seg Neutrophils # Man 21.2 K/mm3 (1.8-7.7) H 01/10/17 04:30 Band Neutrophils # 1.7 K/mm3 01/10/17 04:30 Lymphocytes # (Manual) 1.0 K/mm3 (1.2-5.4) L 01/10/17 04:30 Abs React Lymphs (Man) 0.0 K/mm3 01/10/17 04:30 Monocytes # (Manual) 0.2 K/mm3 (0.0-0.8) 01/10/17 04:30 Eosinophils # (Manual) 0.0 K/mm3 (0.0-0.4) 01/10/17 04:30 Basophils # (Manual) 0.0 K/mm3 (0.0-0.1) 01/10/17 04:30 Metamyelocytes # 0.0 K/mm3 01/10/17 04:30 Myelocytes # 0.0 K/mm3 01/10/17 04:30 Promyelocytes # 0.0 K/mm3 01/10/17 04:30 Blast Cells # 0.0 K/mm3 01/10/17 04:30 WBC Morphology Not Reportable 01/10/17 04:30 Hypersegmented Neuts Not Reportable 01/10/17 04:30 Hyposegmented Neuts Not Reportable 01/10/17 04:30 Hypogranular Neuts Not Reportable 01/10/17 04:30 Smudge Cells Not Reportable 01/10/17 04:30 Toxic Granulation Not Reportable 01/10/17 04:30 Toxic Vacuolation Not Reportable 01/10/17 04:30 Dohle Bodies Not Reportable 01/10/17 04:30 Pelger-Huet Anomaly Not Reportable 01/10/17 04:30 Shelby Rods Not Reportable 01/10/17 04:30 Platelet Estimate Consistent w auto 01/10/17 04:30 Clumped Platelets Not Reportable 01/10/17 04:30 Plt Clumps, EDTA Not Reportable 01/10/17 04:30 Large Platelets Not Reportable 01/10/17 04:30 Giant Platelets Not Reportable 01/10/17 04:30 Platelet Satelliting Not Reportable 01/10/17 04:30 Plt Morphology Comment Not Reportable 01/10/17 04:30 RBC Morphology Not Reportable 01/10/17 04:30 Dimorphic RBCs Not Reportable 01/10/17 04:30 Polychromasia Not Reportable 01/10/17 04:30 Hypochromasia 1+ 01/10/17 04:30 Poikilocytosis Not Reportable 01/10/17 04:30 Anisocytosis Not Reportable 01/10/17 04:30 Microcytosis Not Reportable 01/10/17 04:30 Macrocytosis Not Reportable 01/10/17 04:30 Spherocytes Not Reportable 01/10/17 04:30 Pappenheimer Bodies Not Reportable 01/10/17 04:30 Sickle Cells Not Reportable 01/10/17 04:30 Target Cells Not Reportable 01/10/17 04:30 Tear Drop Cells Not Reportable 01/10/17 04:30 Ovalocytes Not Reportable 01/10/17 04:30 Helmet Cells Not Reportable 01/10/17 04:30 Jarrett-[place] Bodies Not Reportable 01/10/17 04:30 [place] Rings Not Reportable 01/10/17 04:30 [place] Cells Not Reportable 01/10/17 04:30 Bite Cells Not Reportable 01/10/17 04:30 Crenated Cell Not Reportable 01/10/17 04:30 Elliptocytes Not Reportable 01/10/17 04:30 Acanthocytes (Spur) Not Reportable 01/10/17 04:30 Rouleaux Not Reportable 01/10/17 04:30 Hemoglobin C Crystals Not Reportable 01/10/17 04:30 Schistocytes Not Reportable 01/10/17 04:30 Malaria parasites Not Reportable 01/10/17 04:30 Kyle Bodies Not Reportable 01/10/17 04:30 Hem Pathologist Commnt No 01/10/17 04:30 PT 14.4 Sec. (12.2-14.9) 01/09/17 10:16 INR 1.07 (0.87-1.13) 01/09/17 10:16 APTT 39.6 Sec. (24.2-36.6) H 01/09/17 10:16 POC ABG pH 7.436 (7.35-7.45) 01/12/17 05:02 POC ABG pCO2 28.0 (35-45) L 01/12/17 05:02 POC ABG pO2 178 (80-105) H 01/12/17 05:02 POC ABG HCO3 18.8 01/12/17 05:02 POC ABG Total CO2 20 01/12/17 05:02 POC ABG O2 Sat 100 01/12/17 05:02 POC ABG Base Excess -5 01/12/17 05:02 VBG pH 7.284 (7.320-7.420) L 01/09/17 10:16 FiO2 35 % 01/12/17 05:02 Sodium 142 mmol/L (137-145) 01/11/17 05:20 Potassium 3.4 mmol/L (3.6-5.0) L 01/11/17 05:20 Chloride 111.5 mmol/L (98-107) H 01/11/17 05:20 Carbon Dioxide 17 mmol/L (22-30) L 01/11/17 05:20 Anion Gap 17 mmol/L 01/11/17 05:20 BUN 15 mg/dL (9-20) 01/11/17 05:20 Creatinine 0.9 mg/dL (0.8-1.5) 01/11/17 05:20 Estimated GFR > 60 ml/min 01/11/17 05:20 BUN/Creatinine Ratio 17 % 01/11/17 05:20 Glucose 147 mg/dL (75-100) H 01/11/17 05:20 POC Glucose 164 (70-105) H 01/12/17 14:50 Lactic Acid 1.00 mmol/L (0.7-2.0) 01/09/17 10:16 Calcium 8.0 mg/dL (8.4-10.2) L 01/11/17 05:20 Magnesium 2.10 mg/dL (1.7-2.3) 01/09/17 10:16 Total Bilirubin 0.30 mg/dL (0.1-1.2) 01/09/17 10:16 AST 25 units/L (5-40) 01/09/17 10:16 ALT 17 units/L (7-56) 01/09/17 10:16 Alkaline Phosphatase 151 units/L (35-129) H 01/09/17 10:16 Ammonia 35.0 umol/L (25-60) 01/09/17 10:16 Total Creatine Kinase 135 units/L (55-170) 01/09/17 10:16 CK-MB (CK-2) 7.1 ng/mL (0.0-4.0) H 01/09/17 10:16 CK-MB (CK-2) Rel Index 5.2 (0-4) H 01/09/17 10:16 Troponin T < 0.010 ng/mL (0.00-0.029) 01/09/17 10:16 NT-Pro-B Natriuret Pep 602.9 pg/mL (0-900) 01/09/17 10:16 Total Protein 8.2 g/dL (6.3-8.2) 01/09/17 10:16 Albumin 3.3 g/dL (3.9-5) L 01/09/17 10:16 Albumin/Globulin Ratio 0.7 % 01/09/17 10:16 TSH 52.800 mlU/mL (0.270-4.200) H 01/09/17 10:16 Free T4 0.78 ng/dL (0.76-1.46) 01/09/17 10:16 Total Cortisol 54.8 mcg/dL () 01/09/17 16:19 Urine Color Yellow (Yellow) 01/09/17 10:23 Urine Turbidity Clear (Clear) 01/09/17 10:23 Urine pH 6.0 (5.0-7.0) 01/09/17 10:23 Ur Specific [place] 1.011 (1.003-1.030) 01/09/17 10:23 Urine Protein <15 mg/dl mg/dL (Negative) 01/09/17 10:23 Urine Glucose (UA) Neg mg/dL (Negative) 01/09/17 10:23 Urine Ketones Neg mg/dL (Negative) 01/09/17 10:23 Urine Blood Neg (Negative) 01/09/17 10:23 Urine Nitrite Neg (Negative) 01/09/17 10:23 Urine Bilirubin Neg (Negative) 01/09/17 10:23 Urine Urobilinogen < 2.0 mg/dL (<2.0) 01/09/17 10:23 Ur Leukocyte Esterase Lg (Negative) 01/09/17 10:23 Urine WBC (Auto) 61.0 /HPF (0.0-6.0) H 01/09/17 10:23 Urine RBC (Auto) 5.0 /HPF (0.0-6.0) 01/09/17 10:23 Urine Bacteria (Auto) 1+ /HPF (Negative) 01/09/17 10:23 Salicylates < 0.3 mg/dL (2.8-20.0) L 01/09/17 10:16 Urine Opiates Screen Presumptive negative 01/09/17 10:23 Urine Methadone Screen Presumptive negative 01/09/17 10:23 Acetaminophen < 15.0 ug/mL (10.0-30.0) 01/09/17 10:16 Ur Barbiturates Screen Presumptive negative 01/09/17 10:23 Ur Phencyclidine Scrn Presumptive negative 01/09/17 10:23 Ur Amphetamines Screen Presumptive negative 01/09/17 10:23 U Benzodiazepines Scrn Presumptive negative 01/09/17 10:23 Urine Cocaine Screen Presumptive negative 01/09/17 10:23 U Marijuana (THC) Screen Presumptive negative 01/09/17 10:23 Drugs of Abuse Note Disclamer 01/09/17 10:23 Plasma/Serum Alcohol < 0.01 gm% (0-0.07) 01/09/17 10:16
[2017-01-12] MEDS: ROCEPHIN/NS 1 GM/50 ML 1 GM/50 ML BAG IV SCH (22:11)
[2017-01-13 04:06] LABS: Basophils # (Auto) 0.1 K/mm3 (0.0-0.1); Basophils % (Auto) 1.1 % (0.0-1.8); Eosinophils # (Auto) 0.1 K/mm3 (0.0-0.4); Eosinophils % (Auto) 0.8 % (0.0-4.3); Hemoglobin 9.3 gm/dl (11.8-15.2); Lymphocytes # (Auto) 1.5 K/mm3 (1.2-5.4); Lymphocytes % (Auto) 22.7 % (13.4-35.0); Mean Corpuscular HGB Conc 33 % (32-34); Mean Corpuscular Volume 78 fl (84-94); Monocytes # (Auto) 0.5 K/mm3 (0.0-0.8); Monocytes % (Auto) 7.1 % (0.0-7.3); Platelet Count 380 K/mm3 (140-440); Red Blood Count 3.61 M/mm3 (3.65-5.03); Red Cell Distribution Width 18.2 % (13.2-15.2)
[2017-01-13 04:10] LABS: Mean Corpuscular Hemoglobin 26 pg (28-32)
[2017-01-13 04:28] LABS: BUN/Creatinine Ratio 14; Blood Urea Nitrogen 11 mg/dL (9-20); Hemolysis Index 7
[2017-01-13] MEDS: D5NS 1,000 ML IV SCH ×3 (05:59→23:27)
[2017-01-13] MEDS: SYNTHROID IV SCH (06:00)
[2017-01-13] MEDS: NOVOLOG SUB-Q SCH ×3 (06:08→14:03)
--- NOTE | 2017-01-13 07:40 | XRay Report ---
Single view chest: Compared to 01/12/17. History: Followup respiratory failure. Findings: Borderline cardiomegaly. Trachea is midline. Stable support system. No acute consolidation or pleural effusion. Impression: No acute cardiopulmonary findings.
[2017-01-13] MEDS: HEPARIN SUB-Q SCH ×2 (11:16→23:28)
[2017-01-13] MEDS: NORMODYNE PO SCH (11:17)
[2017-01-13] MEDS: APRESOLINE IV PRN (11:17)
[2017-01-13] MEDS: PEPCID IV SCH ×2 (11:17→23:28)
[2017-01-13] MEDS ORDERED: PNEUMOVAX 23 IM ONE (12:00)
[2017-01-13] MEDS ORDERED: Fluarix Quad 2017-2018(36 MOS+ IM ONE (12:00)
--- NOTE | 2017-01-13 15:08 | Progress Note ---
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 DVT prophylaxis - On heparin CODE STATUS full Prognosis - Poor Disposition - Continue ICU care, consider PEG and Trach History Interval history: Patient was seen and evaluated this morning, patient is comatose, on mechanical ventilation, not on sedation. Hospitalist Physical - Physical exam Narrative exam: Intubated and on mechanical ventilation. The patient appeared well nourished and normally developed. Vital signs as documented. Head exam is unremarkable. No scleral icterus . Neck is without jugular venous distension, thyromegaly, or carotid bruits. Lungs are clear to auscultation. Cardiac exam reveals regular rate and Rhythm. Abdominal exam reveals normal bowel sounds. Extremities are nonedematous and both femoral and pedal pulses are normal. 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 Pupils are not dilated, but non reactive to light. - Constitutional Vitals: Temp Pulse Resp BP Pulse Ox 98.5 F 73 11 L 126/69 100 01/13/17 12:00 01/13/17 12:00 01/13/17 12:00 01/13/17 12:00 01/13/17 12:00 General appearance: Present: severe distress Results - Labs CBC & Chem 7: 01/13/17 03:37 01/13/17 03:37 Labs: Laboratory Last Values WBC 6.6 K/mm3 (4.5-11.0) 01/13/17 03:37 RBC 3.61 M/mm3 (3.65-5.03) L 01/13/17 03:37 Hgb 9.3 gm/dl (11.8-15.2) L 01/13/17 03:37 Hct 28.0 % (35.5-45.6) L 01/13/17 03:37 MCV 78 fl (84-94) L 01/13/17 03:37 MCH 26 pg (28-32) L 01/13/17 03:37 MCHC 33 % (32-34) 01/13/17 03:37 RDW 18.2 % (13.2-15.2) H 01/13/17 03:37 Plt Count 380 K/mm3 (140-440) 01/13/17 03:37 Lymph % (Auto) 22.7 % (13.4-35.0) 01/13/17 03:37 [place] % (Auto) 7.1 % (0.0-7.3) 01/13/17 03:37 Eos % (Auto) 0.8 % (0.0-4.3) 01/13/17 03:37 Baso % (Auto) 1.1 % (0.0-1.8) 01/13/17 03:37 Lymph # 1.5 K/mm3 (1.2-5.4) 01/13/17 03:37 [place] # 0.5 K/mm3 (0.0-0.8) 01/13/17 03:37 Eos # 0.1 K/mm3 (0.0-0.4) 01/13/17 03:37 Baso # 0.1 K/mm3 (0.0-0.1) 01/13/17 03:37 Add Manual Diff Complete 01/10/17 04:30 Total Counted 100 01/10/17 04:30 Seg Neutrophils % 68.3 % (40.0-70.0) 01/13/17 03:37 Seg Neuts % (Manual) 88.0 % (40.0-70.0) H 01/10/17 04:30 Band Neutrophils % 7.0 % 01/10/17 04:30 Lymphocytes % (Manual) 4.0 % (13.4-35.0) L 01/10/17 04:30 Reactive Lymphs % (Man) 0 % 01/10/17 04:30 Monocytes % (Manual) 1.0 % (0.0-7.3) 01/10/17 04:30 Eosinophils % (Manual) 0 % (0.0-4.3) 01/10/17 04:30 Basophils % (Manual) 0 % (0.0-1.8) 01/10/17 04:30 Metamyelocytes % 0 % 01/10/17 04:30 Myelocytes % 0 % 01/10/17 04:30 Promyelocytes % 0 % 01/10/17 04:30 Blast Cells % 0 % 01/10/17 04:30 Nucleated RBC % Not Reportable 01/10/17 04:30 Seg Neutrophils # 4.5 K/mm3 (1.8-7.7) 01/13/17 03:37 Seg Neutrophils # Man 21.2 K/mm3 (1.8-7.7) H 01/10/17 04:30 Band Neutrophils # 1.7 K/mm3 01/10/17 04:30 Lymphocytes # (Manual) 1.0 K/mm3 (1.2-5.4) L 01/10/17 04:30 Abs React Lymphs (Man) 0.0 K/mm3 01/10/17 04:30 Monocytes # (Manual) 0.2 K/mm3 (0.0-0.8) 01/10/17 04:30 Eosinophils # (Manual) 0.0 K/mm3 (0.0-0.4) 01/10/17 04:30 Basophils # (Manual) 0.0 K/mm3 (0.0-0.1) 01/10/17 04:30 Metamyelocytes # 0.0 K/mm3 01/10/17 04:30 Myelocytes # 0.0 K/mm3 01/10/17 04:30 Promyelocytes # 0.0 K/mm3 01/10/17 04:30 Blast Cells # 0.0 K/mm3 01/10/17 04:30 WBC Morphology Not Reportable 01/10/17 04:30 Hypersegmented Neuts Not Reportable 01/10/17 04:30 Hyposegmented Neuts Not Reportable 01/10/17 04:30 Hypogranular Neuts Not Reportable 01/10/17 04:30 Smudge Cells Not Reportable 01/10/17 04:30 Toxic Granulation Not Reportable 01/10/17 04:30 Toxic Vacuolation Not Reportable 01/10/17 04:30 Dohle Bodies Not Reportable 01/10/17 04:30 Pelger-Huet Anomaly Not Reportable 01/10/17 04:30 Shelby Rods Not Reportable 01/10/17 04:30 Platelet Estimate Consistent w auto 01/10/17 04:30 Clumped Platelets Not Reportable 01/10/17 04:30 Plt Clumps, EDTA Not Reportable 01/10/17 04:30 Large Platelets Not Reportable 01/10/17 04:30 Giant Platelets Not Reportable 01/10/17 04:30 Platelet Satelliting Not Reportable 01/10/17 04:30 Plt Morphology Comment Not Reportable 01/10/17 04:30 RBC Morphology Not Reportable 01/10/17 04:30 Dimorphic RBCs Not Reportable 01/10/17 04:30 Polychromasia Not Reportable 01/10/17 04:30 Hypochromasia 1+ 01/10/17 04:30 Poikilocytosis Not Reportable 01/10/17 04:30 Anisocytosis Not Reportable 01/10/17 04:30 Microcytosis Not Reportable 01/10/17 04:30 Macrocytosis Not Reportable 01/10/17 04:30 Spherocytes Not Reportable 01/10/17 04:30 Pappenheimer Bodies Not Reportable 01/10/17 04:30 Sickle Cells Not Reportable 01/10/17 04:30 Target Cells Not Reportable 01/10/17 04:30 Tear Drop Cells Not Reportable 01/10/17 04:30 Ovalocytes Not Reportable 01/10/17 04:30 Helmet Cells Not Reportable 01/10/17 04:30 Jarrett-Hannah Bodies Not Reportable 01/10/17 04:30 [place] Rings Not Reportable 01/10/17 04:30 Jessica Cells Not Reportable 01/10/17 04:30 Bite Cells Not Reportable 01/10/17 04:30 Crenated Cell Not Reportable 01/10/17 04:30 Elliptocytes Not Reportable 01/10/17 04:30 Acanthocytes (Spur) Not Reportable 01/10/17 04:30 Rouleaux Not Reportable 01/10/17 04:30 Hemoglobin C Crystals Not Reportable 01/10/17 04:30 Schistocytes Not Reportable 01/10/17 04:30 Malaria parasites Not Reportable 01/10/17 04:30 Kyle Bodies Not Reportable 01/10/17 04:30 Hem Pathologist Commnt No 01/10/17 04:30 PT 14.4 Sec. (12.2-14.9) 01/09/17 10:16 INR 1.07 (0.87-1.13) 01/09/17 10:16 APTT 39.6 Sec. (24.2-36.6) H 01/09/17 10:16 POC ABG pH 7.485 (7.35-7.45) H 01/13/17 04:26 POC ABG pCO2 25.4 (35-45) L 01/13/17 04:26 POC ABG pO2 73 (80-105) L 01/13/17 04:26 POC ABG HCO3 19.1 01/13/17 04:26 POC ABG Total CO2 20 01/13/17 04:26 POC ABG O2 Sat 96 01/13/17 04:26 POC ABG Base Excess -4 01/13/17 04:26 VBG pH 7.284 (7.320-7.420) L 01/09/17 10:16 FiO2 30 % 01/13/17 04:26 Sodium 144 mmol/L (137-145) 01/13/17 03:37 Potassium 3.7 mmol/L (3.6-5.0) 01/13/17 03:37 Chloride 112.4 mmol/L (98-107) H 01/13/17 03:37 Carbon Dioxide 19 mmol/L (22-30) L 01/13/17 03:37 Anion Gap 16 mmol/L 01/13/17 03:37 BUN 11 mg/dL (9-20) 01/13/17 03:37 Creatinine 0.8 mg/dL (0.8-1.5) 01/13/17 03:37 Estimated GFR > 60 ml/min 01/13/17 03:37 BUN/Creatinine Ratio 14 % 01/13/17 03:37 Glucose 118 mg/dL (75-100) H 01/13/17 03:37 POC Glucose 116 (70-105) H 01/13/17 06:15 Lactic Acid 1.00 mmol/L (0.7-2.0) 01/09/17 10:16 Calcium 8.0 mg/dL (8.4-10.2) L 01/13/17 03:37 Magnesium 2.10 mg/dL (1.7-2.3) 01/09/17 10:16 Total Bilirubin 0.30 mg/dL (0.1-1.2) 01/09/17 10:16 AST 25 units/L (5-40) 01/09/17 10:16 ALT 17 units/L (7-56) 01/09/17 10:16 Alkaline Phosphatase 151 units/L (35-129) H 01/09/17 10:16 Ammonia 35.0 umol/L (25-60) 01/09/17 10:16 Total Creatine Kinase 135 units/L (55-170) 01/09/17 10:16 CK-MB (CK-2) 7.1 ng/mL (0.0-4.0) H 01/09/17 10:16 CK-MB (CK-2) Rel Index 5.2 (0-4) H 01/09/17 10:16 Troponin T < 0.010 ng/mL (0.00-0.029) 01/09/17 10:16 NT-Pro-B Natriuret Pep 602.9 pg/mL (0-900) 01/09/17 10:16 Total Protein 8.2 g/dL (6.3-8.2) 01/09/17 10:16 Albumin 3.3 g/dL (3.9-5) L 01/09/17 10:16 Albumin/Globulin Ratio 0.7 % 01/09/17 10:16 TSH 52.800 mlU/mL (0.270-4.200) H 01/09/17 10:16 Free T4 0.78 ng/dL (0.76-1.46) 01/09/17 10:16 Total Cortisol 54.8 mcg/dL () 01/09/17 16:19 Urine Color Yellow (Yellow) 01/09/17 10:23 Urine Turbidity Clear (Clear) 01/09/17 10:23 Urine pH 6.0 (5.0-7.0) 01/09/17 10:23 Ur Specific [place] 1.011 (1.003-1.030) 01/09/17 10:23 Urine Protein <15 mg/dl mg/dL (Negative) 01/09/17 10:23 Urine Glucose (UA) Neg mg/dL (Negative) 01/09/17 10:23 Urine Ketones Neg mg/dL (Negative) 01/09/17 10:23 Urine Blood Neg (Negative) 01/09/17 10:23 Urine Nitrite Neg (Negative) 01/09/17 10:23 Urine Bilirubin Neg (Negative) 01/09/17 10:23 Urine Urobilinogen < 2.0 mg/dL (<2.0) 01/09/17 10:23 Ur Leukocyte Esterase Lg (Negative) 01/09/17 10:23 Urine WBC (Auto) 61.0 /HPF (0.0-6.0) H 01/09/17 10:23 Urine RBC (Auto) 5.0 /HPF (0.0-6.0) 01/09/17 10:23 Urine Bacteria (Auto) 1+ /HPF (Negative) 01/09/17 10:23 Salicylates < 0.3 mg/dL (2.8-20.0) L 01/09/17 10:16 Urine Opiates Screen Presumptive negative 01/09/17 10:23 Urine Methadone Screen Presumptive negative 01/09/17 10:23 Acetaminophen < 15.0 ug/mL (10.0-30.0) 01/09/17 10:16 Ur Barbiturates Screen Presumptive negative 01/09/17 10:23 Ur Phencyclidine Scrn Presumptive negative 01/09/17 10:23 Ur Amphetamines Screen Presumptive negative 01/09/17 10:23 U Benzodiazepines Scrn Presumptive negative 01/09/17 10:23 Urine Cocaine Screen Presumptive negative 01/09/17 10:23 U Marijuana (THC) Screen Presumptive negative 01/09/17 10:23 Drugs of Abuse Note Disclamer 01/09/17 10:23 Plasma/Serum Alcohol < 0.01 gm% (0-0.07) 01/09/17 10:16
--- NOTE | 2017-01-13 17:03 | Progress Note ---
Assessment and Plan Imp: 1. Hypoglycemia/hypothermia -> suspect due to too much insulin 2. Hypothyroidism; doubt myxedema coma with normal free T4 3. Acute respiratory failure, hypoxia 4. UTI/SIRS 5. Metabolic encephalopathy Rec: 1. No sedation 2. Rocephin; f/u cultures and send urine culture (ordered, not done for unclear reasons) 3. May have some irreversible encephalopathy due to hypoglycemia; ? MRI, ? EEG, etc.; recommending discussing with neurology 4. Stopped steroids; no clear indication 5. Caution w/ large dose of IV Synthroid (consider changing to PO); see #2 above 6. GI/DVT PPx 7. Guarded prognosis; complex patient No family present. Subjective Date of service: 01/13/17 Principal diagnosis: Acute respiratory failure Interval history: No events. On vent. Unresponsive. Active Medications Dextrose (D50w (25gm) Syringe) 50 ml IV PRN PRN PRN Reason: Hypoglycemia Last Admin: 01/10/17 06:37 Dose: 50 ml Famotidine (Pepcid) 20 mg IV BID [facility] Last Admin: 01/13/17 11:17 Dose: 20 mg Heparin Sodium (Porcine) (Heparin) 5,000 unit SUB-Q Q12HR [facility] Last Admin: 01/13/17 11:16 Dose: 5,000 unit Hydralazine HCl (Apresoline) 10 mg IV Q4HR PRN PRN Reason: Hypertension Last Admin: 01/13/17 11:17 Dose: 10 mg Hydrophilic Ointment (Vaseline Lip Therapy) 1 applic TP Q2HR PRN PRN Reason: Dry Lips Dextrose/Sodium Chloride (D5ns) 1,000 mls @ 100 mls/hr IV DIRECT [facility] Last Admin: 01/13/17 11:19 Dose: 100 mls/hr Ceftriaxone Sodium (Rocephin/Ns 1 Gm/50 Ml) 1 gm in 50 mls @ 100 mls/hr IV Q24H [facility] PRN Reason: Protocol Last Admin: 01/12/17 22:11 Dose: 100 mls/hr Insulin Aspart (Novolog) 0 units SUB-Q Q8HR [facility] PRN Reason: Protocol Last Admin: 01/13/17 14:03 Dose: Not Given Labetalol HCl (Normodyne) 200 mg PO BID [facility] Last Admin: 01/13/17 11:17 Dose: 200 mg Levothyroxine Sodium (Synthroid) 200 mcg IV DAILY@0600 [facility] Last Admin: 01/13/17 06:00 Dose: 200 mcg Multi-Ingred Cream/Lotion/Oil/Oint (Artificial Tears Ophth Oint) 1 applic OU Q4HR PRN PRN Reason: Dry Eye(s) Sodium Chloride (Nacl 0.9% 500 Ml) 500 ml IV DIRECT [facility]OLO Objective Vital Signs - 12hr 01/13/17 01/13/17 01/13/17 05:10 05:21 05:31 Temperature Pulse Rate 70 67 66 Pulse Rate [ Left Radial] Respiratory 13 11 L 13 Rate Blood Pressure 168/78 168/78 168/78 O2 Sat by Pulse 100 100 100 Oximetry 01/13/17 01/13/17 01/13/17 05:41 05:51 06:00 Temperature Pulse Rate 68 71 72 Pulse Rate [ Left Radial] Respiratory 14 15 13 Rate Blood Pressure 168/78 168/78 163/85 O2 Sat by Pulse 100 100 99 Oximetry 01/13/17 01/13/17 01/13/17 06:11 06:21 06:31 Temperature Pulse Rate 72 69 66 Pulse Rate [ Left Radial] Respiratory 14 13 10 L Rate Blood Pressure 162/87 162/87 162/87 O2 Sat by Pulse 100 100 100 Oximetry 01/13/17 01/13/17 01/13/17 06:41 06:51 07:00 Temperature Pulse Rate 68 68 68 Pulse Rate [ Left Radial] Respiratory 15 12 15 Rate Blood Pressure 162/87 162/87 169/79 O2 Sat by Pulse 100 100 99 Oximetry 01/13/17 01/13/17 01/13/17 07:11 07:21 07:26 Temperature Pulse Rate 67 68 67 Pulse Rate [ Left Radial] Respiratory 12 14 Rate Blood Pressure 169/79 162/87 169/79 O2 Sat by Pulse 100 100 100 Oximetry 01/13/17 01/13/17 01/13/17 07:31 07:41 07:51 Temperature Pulse Rate 69 72 70 Pulse Rate [ Left Radial] Respiratory 14 14 14 Rate Blood Pressure 162/87 162/87 162/87 O2 Sat by Pulse 100 100 100 Oximetry 01/13/17 01/13/17 01/13/17 07:54 08:00 08:11 Temperature 98.2 F Pulse Rate 70 69 Pulse Rate [ 72 Left Radial] Respiratory 19 12 13 Rate Blood Pressure 163/77 163/77 O2 Sat by Pulse 100 99 100 Oximetry 01/13/17 01/13/17 01/13/17 08:21 08:31 08:41 Temperature Pulse Rate 66 66 65 Pulse Rate [ Left Radial] Respiratory 12 11 L 14 Rate Blood Pressure 163/77 163/77 163/77 O2 Sat by Pulse 100 100 100 Oximetry 01/13/17 01/13/17 01/13/17 08:51 09:00 09:11 Temperature Pulse Rate 66 71 69 Pulse Rate [ Left Radial] Respiratory 11 L 13 13 Rate Blood Pressure 163/77 178/85 178/85 O2 Sat by Pulse 100 98 100 Oximetry 01/13/17 01/13/17 01/13/17 09:21 09:31 09:41 Temperature Pulse Rate 67 67 68 Pulse Rate [ Left Radial] Respiratory 12 14 11 L Rate Blood Pressure 178/85 178/85 178/85 O2 Sat by Pulse 100 100 100 Oximetry 01/13/17 01/13/17 01/13/17 09:51 10:00 10:11 Temperature Pulse Rate 65 68 71 Pulse Rate [ Left Radial] Respiratory 12 12 17 Rate Blood Pressure 178/85 179/84 179/84 O2 Sat by Pulse 100 99 100 Oximetry 01/13/17 01/13/17 01/13/17 10:21 10:31 10:41 Temperature Pulse Rate 70 69 67 Pulse Rate [ Left Radial] Respiratory 13 13 13 Rate Blood Pressure 179/84 179/84 179/84 O2 Sat by Pulse 100 100 100 Oximetry 01/13/17 01/13/17 01/13/17 10:51 11:00 11:11 Temperature Pulse Rate 65 66 67 Pulse Rate [ Left Radial] Respiratory 13 12 14 Rate Blood Pressure 179/84 176/80 176/80 O2 Sat by Pulse 100 100 100 Oximetry 01/13/17 01/13/17 01/13/17 11:17 11:21 11:31 Temperature Pulse Rate 67 72 Pulse Rate [ Left Radial] Respiratory 12 22 Rate Blood Pressure 176/80 176/80 176/80 O2 Sat by Pulse 100 100 Oximetry 01/13/17 01/13/17 01/13/17 11:34 11:41 11:51 Temperature Pulse Rate 70 70 71 Pulse Rate [ Left Radial] Respiratory 15 13 Rate Blood Pressure 176/80 176/80 135/70 O2 Sat by Pulse 100 100 100 Oximetry 01/13/17 12:00 Temperature 98.5 F Pulse Rate 73 Pulse Rate [ Left Radial] Respiratory 11 L Rate Blood Pressure 126/69 O2 Sat by Pulse 100 Oximetry Constitutional: other (intubated, critically ill on vent) Eyes: non-icteric ENT: oropharynx moist Neck: supple Effort: normal Ascultation: Bilateral: clear Cardiovascular: regular rate and rhythm (no mrg) Gastrointestinal: normoactive bowel sounds, soft, non-tender, non-distended Integumentary: rash (lesions all over trunk/extremities (most appear to be scabs )) Extremities: no cyanosis, no edema, pink and warm Neurologic: other (unresponsive) Psychiatric: other (unable to obtain) CBC and BMP: 01/13/17 03:37 01/13/17 03:37 ABG, PT/INR, D-dimer: ABG POC ABG pH 7.485 (7.35-7.45) H 01/13/17 04:26 POC ABG pCO2 25.4 (35-45) L 01/13/17 04:26 POC ABG pO2 73 (80-105) L 01/13/17 04:26 POC ABG HCO3 19.1 01/13/17 04:26 POC ABG Total CO2 20 01/13/17 04:26 POC ABG O2 Sat 96 01/13/17 04:26 PT/INR, D-dimer PT 14.4 Sec. (12.2-14.9) 01/09/17 10:16 INR 1.07 (0.87-1.13) 01/09/17 10:16 Abnormal lab findings: Abnormal Labs 01/09/17 01/09/17 01/09/17 12:49 13:13 14:21 WBC RBC Hgb Hct MCV MCH RDW Plt Count Lymph % (Auto) Seg Neutrophils % Seg Neuts % (Manual) Lymphocytes % (Manual) Seg Neutrophils # Seg Neutrophils # Man Lymphocytes # (Manual) POC ABG pH POC ABG pCO2 POC ABG pO2 Potassium Chloride Carbon Dioxide BUN Glucose POC Glucose < 40 L 128 H 65 L Calcium 01/09/17 01/09/17 01/09/17 15:09 16:28 17:14 WBC RBC Hgb Hct MCV MCH RDW Plt Count Lymph % (Auto) Seg Neutrophils % Seg Neuts % (Manual) Lymphocytes % (Manual) Seg Neutrophils # Seg Neutrophils # Man Lymphocytes # (Manual) POC ABG pH POC ABG pCO2 POC ABG pO2 Potassium Chloride Carbon Dioxide BUN Glucose POC Glucose 120 H 44 L 112 H Calcium 01/10/17 01/10/17 01/10/17 04:30 04:30 05:41 WBC 24.1 H RBC 3.38 L Hgb 8.5 L Hct 26.0 L MCV 77 L MCH 25 L RDW 17.9 H Plt Count 474 H Lymph % (Auto) Seg Neutrophils % Seg Neuts % (Manual) 88.0 H Lymphocytes % (Manual) 4.0 L Seg Neutrophils # Seg Neutrophils # Man 21.2 H Lymphocytes # (Manual) 1.0 L POC ABG pH POC ABG pCO2 POC ABG pO2 Potassium Chloride Carbon Dioxide 17 L BUN 27 H Glucose POC Glucose 68 L Calcium 7.5 L 01/10/17 01/10/17 01/10/17 05:45 07:47 10:50 WBC RBC Hgb Hct MCV MCH RDW Plt Count Lymph % (Auto) Seg Neutrophils % Seg Neuts % (Manual) Lymphocytes % (Manual) Seg Neutrophils # Seg Neutrophils # Man Lymphocytes # (Manual) POC ABG pH POC ABG pCO2 26.6 L POC ABG pO2 207 H Potassium Chloride Carbon Dioxide BUN Glucose POC Glucose 148 H 165 H Calcium 01/10/17 01/10/17 01/10/17 13:41 20:20 21:39 WBC RBC Hgb Hct MCV MCH RDW Plt Count Lymph % (Auto) Seg Neutrophils % Seg Neuts % (Manual) Lymphocytes % (Manual) Seg Neutrophils # Seg Neutrophils # Man Lymphocytes # (Manual) POC ABG pH POC ABG pCO2 POC ABG pO2 Potassium Chloride Carbon Dioxide BUN Glucose POC Glucose 114 H 150 H 175 H Calcium 01/10/17 01/11/17 01/11/17 23:24 00:19 04:06 WBC RBC Hgb Hct MCV MCH RDW Plt Count Lymph % (Auto) Seg Neutrophils % Seg Neuts % (Manual) Lymphocytes % (Manual) Seg Neutrophils # Seg Neutrophils # Man Lymphocytes # (Manual) POC ABG pH 7.463 H POC ABG pCO2 26.2 L POC ABG pO2 185 H Potassium Chloride Carbon Dioxide BUN Glucose POC Glucose 155 H 163 H Calcium 01/11/17 01/11/17 01/11/17 05:20 05:20 06:21 WBC 15.2 H RBC 3.40 L Hgb 8.9 L Hct 26.3 L MCV 78 L MCH 26 L RDW 18.6 H Plt Count 462 H Lymph % (Auto) 13.2 L Seg Neutrophils % 80.8 H Seg Neuts % (Manual) Lymphocytes % (Manual) Seg Neutrophils # 12.3 H Seg Neutrophils # Man Lymphocytes # (Manual) POC ABG pH POC ABG pCO2 POC ABG pO2 Potassium 3.4 L Chloride 111.5 H Carbon Dioxide 17 L BUN Glucose 147 H POC Glucose 139 H Calcium 8.0 L 01/11/17 01/11/17 01/11/17 07:57 11:46 16:50 WBC RBC Hgb Hct MCV MCH RDW Plt Count Lymph % (Auto) Seg Neutrophils % Seg Neuts % (Manual) Lymphocytes % (Manual) Seg Neutrophils # Seg Neutrophils # Man Lymphocytes # (Manual) POC ABG pH POC ABG pCO2 POC ABG pO2 Potassium Chloride Carbon Dioxide BUN Glucose POC Glucose 188 H 199 H 235 H Calcium 01/11/17 01/12/17 01/12/17 23:15 05:02 06:56 WBC RBC Hgb Hct MCV MCH RDW Plt Count Lymph % (Auto) Seg Neutrophils % Seg Neuts % (Manual) Lymphocytes % (Manual) Seg Neutrophils # Seg Neutrophils # Man Lymphocytes # (Manual) POC ABG pH POC ABG pCO2 28.0 L POC ABG pO2 178 H Potassium Chloride Carbon Dioxide BUN Glucose POC Glucose 155 H 119 H Calcium 01/12/17 01/13/17 01/13/17 14:50 03:37 03:37 WBC RBC 3.61 L Hgb 9.3 L Hct 28.0 L MCV 78 L MCH 26 L RDW 18.2 H Plt Count Lymph % (Auto) Seg Neutrophils % Seg Neuts % (Manual) Lymphocytes % (Manual) Seg Neutrophils # Seg Neutrophils # Man Lymphocytes # (Manual) POC ABG pH POC ABG pCO2 POC ABG pO2 Potassium Chloride 112.4 H Carbon Dioxide 19 L BUN Glucose 118 H POC Glucose 164 H Calcium 8.0 L 01/13/17 01/13/17 04:26 06:15 WBC RBC Hgb Hct MCV MCH RDW Plt Count Lymph % (Auto) Seg Neutrophils % Seg Neuts % (Manual) Lymphocytes % (Manual) Seg Neutrophils # Seg Neutrophils # Man Lymphocytes # (Manual) POC ABG pH 7.485 H POC ABG pCO2 25.4 L POC ABG pO2 73 L Potassium Chloride Carbon Dioxide BUN Glucose POC Glucose 116 H Calcium Chest x-ray: report reviewed, image reviewed (clear)
[2017-01-14] MEDS: NOVOLOG SUB-Q SCH ×2 (03:42→17:21)
[2017-01-14 07:25] LABS: Basophils # (Auto) 0.1 K/mm3 (0.0-0.1); Basophils % (Auto) 0.9 % (0.0-1.8); Eosinophils % (Auto) 0.6 % (0.0-4.3); Hematocrit 26.1 % (35.5-45.6); Hemoglobin 8.5 gm/dl (11.8-15.2); Lymphocytes # (Auto) 1.4 K/mm3 (1.2-5.4); Lymphocytes % (Auto) 21.5 % (13.4-35.0); Mean Corpuscular HGB Conc 33 % (32-34); Mean Corpuscular Volume 79 fl (84-94); Monocytes # (Auto) 0.6 K/mm3 (0.0-0.8); Platelet Count 343 K/mm3 (140-440); Red Blood Count 3.32 M/mm3 (3.65-5.03); Red Cell Distribution Width 18.2 % (13.2-15.2)
[2017-01-14 07:31] LABS: Mean Corpuscular Hemoglobin 26 pg (28-32)
[2017-01-14 08:31] LABS: Calcium 8.1 mg/dL (8.4-10.2); Hemolysis Index 2
[2017-01-14 08:42] LABS: BUN/Creatinine Ratio 11; Blood Urea Nitrogen 10 mg/dL (9-20)
--- NOTE | 2017-01-14 09:43 | XRay Report ---
Single view chest: Compared to 01/13/17. History: Followup of respiratory failure. Findings: Normal cardiomediastinal silhouette. Stable support system. No consolidation no pleural effusion. Impression: No acute cardiopulmonary findings.
[2017-01-14] MEDS: PEPCID IV SCH ×2 (10:42→22:41)
[2017-01-14] MEDS: D5NS 1,000 ML IV SCH ×2 (10:42→20:46)
[2017-01-14] MEDS: HEPARIN SUB-Q SCH ×2 (10:42→22:41)
[2017-01-14] MEDS: NORMODYNE PO SCH ×3 (10:43→23:19)
--- NOTE | 2017-01-14 11:09 | Progress Note ---
Assessment and Plan Assessment and plan: 51 YO Male with CKD,HTN, DM presents to ED for evaluation. Pt unable to provide history. Pt history taken from ED staff, and medical records. Pt found down and unresponsive by his neighbor, who subsequently called EMS. Upon arrival, patient found unresponsive on the floor with a serum glucose of 21, and covered with ants with insulin syringes around him and a bottle of atenolol which still had many pills remaining, patient has a known history of alcohol abuse and delirium tremens. The patient was administered D5 approximate 500 mls during transport without change in mental status/level of consciousness. Pt seen and evaluated in ED was was found to be unable to protect his airway. Pt intubated and placed on vent support. 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 Pt treated with supportive care and transferred to ICU. Hypoglycemic brain injury -Continue supportive care Persistent vegetative state Currently comatose, recovery is unlikely Metabolic encephalopathy - CT head negative for any acute events, MRI cannot be done as there is no family to do Pre-MRI screening Hypoglycemia/hypothermia Continue dextrose, tube feeding to be started Acute respiratory failure mechanical ventilator greater than 96 hours - Patient is intubated and on mechanical ventilation Sepsis/UTI IV antibiotics, follow up urine cultures Fever, Tmax 101.2 CXR no infiltrate, UA positve, UCx and Blood cx hyponatremia, resolved with IV hydration Hypothyroidism -Myxedema coma was. She documented in patient's chart. However normal T4 levels do not support a diagnosis of myxedema coma. The patient has hypothyroidism, continue Synthroid SS unable to locate any family. Patient's prognosis is very poor, he'll most likely benefit from terminal extubation versus inpatient hospice placement, pacemaker and so we are still trying to locate a family member. The high probability of a clinically significant, sudden or life threatening deterioration of the [neurologic, respiratory and CV] system(s) required my full and direct attention, intervention and personal management. The aggregate critical care time was [33] minutes. This time is in addition to time spent performing reported procedures but includes the following: [] Data Review and interpretation [] Patient assessment and monitoring of vital signs [] Documentation [] Medication orders and management History Interval history: nurses state that he sometimes moves his extremities, but is mostly comatose Hospitalist Physical - Physical exam Narrative exam: General.: Appears well, no distress, nontoxic HEENT: Moist mucous membranes, , no lymphadenopathy Neck: supple Cardiac: S1-S2 heard Lungs: mech ventilated breath sounds Abdomen: soft , nontender, nondistended, bowel sounds positive Extremities: no edema clubbing or cyanosis Skin: no rash or lesions Neurologic: No gag reflex, pupils minimally responsive, decerebrate posturing to deep painful stimulus Psych: appropriate behavior, appropriate mood, corporative, judgment intact - Constitutional Vitals: Temp Pulse Resp BP Pulse Ox 100.7 F H 84 18 174/73 99 01/14/17 08:00 01/14/17 10:43 01/14/17 08:00 01/14/17 10:43 01/14/17 09:41 Results - Labs CBC & Chem 7: 01/17/17 04:10 01/17/17 04:10 Labs: Laboratory Last Values WBC 6.4 K/mm3 (4.5-11.0) 01/14/17 04:50 RBC 3.32 M/mm3 (3.65-5.03) L 01/14/17 04:50 Hgb 8.5 gm/dl (11.8-15.2) L 01/14/17 04:50 Hct 26.1 % (35.5-45.6) L 01/14/17 04:50 MCV 79 fl (84-94) L 01/14/17 04:50 MCH 26 pg (28-32) L 01/14/17 04:50 MCHC 33 % (32-34) 01/14/17 04:50 RDW 18.2 % (13.2-15.2) H 01/14/17 04:50 Plt Count 343 K/mm3 (140-440) 01/14/17 04:50 Lymph % (Auto) 21.5 % (13.4-35.0) 01/14/17 04:50 [place] % (Auto) 9.0 % (0.0-7.3) H 01/14/17 04:50 Eos % (Auto) 0.6 % (0.0-4.3) 01/14/17 04:50 Baso % (Auto) 0.9 % (0.0-1.8) 01/14/17 04:50 Lymph # 1.4 K/mm3 (1.2-5.4) 01/14/17 04:50 [place] # 0.6 K/mm3 (0.0-0.8) 01/14/17 04:50 Eos # 0.0 K/mm3 (0.0-0.4) 01/14/17 04:50 Baso # 0.1 K/mm3 (0.0-0.1) 01/14/17 04:50 Add Manual Diff Complete 01/10/17 04:30 Total Counted 100 01/10/17 04:30 Seg Neutrophils % 68.0 % (40.0-70.0) 01/14/17 04:50 Seg Neuts % (Manual) 88.0 % (40.0-70.0) H 01/10/17 04:30 Band Neutrophils % 7.0 % 01/10/17 04:30 Lymphocytes % (Manual) 4.0 % (13.4-35.0) L 01/10/17 04:30 Reactive Lymphs % (Man) 0 % 01/10/17 04:30 Monocytes % (Manual) 1.0 % (0.0-7.3) 01/10/17 04:30 Eosinophils % (Manual) 0 % (0.0-4.3) 01/10/17 04:30 Basophils % (Manual) 0 % (0.0-1.8) 01/10/17 04:30 Metamyelocytes % 0 % 01/10/17 04:30 Myelocytes % 0 % 01/10/17 04:30 Promyelocytes % 0 % 01/10/17 04:30 Blast Cells % 0 % 01/10/17 04:30 Nucleated RBC % Not Reportable 01/10/17 04:30 Seg Neutrophils # 4.3 K/mm3 (1.8-7.7) 01/14/17 04:50 Seg Neutrophils # Man 21.2 K/mm3 (1.8-7.7) H 01/10/17 04:30 Band Neutrophils # 1.7 K/mm3 01/10/17 04:30 Lymphocytes # (Manual) 1.0 K/mm3 (1.2-5.4) L 01/10/17 04:30 Abs React Lymphs (Man) 0.0 K/mm3 01/10/17 04:30 Monocytes # (Manual) 0.2 K/mm3 (0.0-0.8) 01/10/17 04:30 Eosinophils # (Manual) 0.0 K/mm3 (0.0-0.4) 01/10/17 04:30 Basophils # (Manual) 0.0 K/mm3 (0.0-0.1) 01/10/17 04:30 Metamyelocytes # 0.0 K/mm3 01/10/17 04:30 Myelocytes # 0.0 K/mm3 01/10/17 04:30 Promyelocytes # 0.0 K/mm3 01/10/17 04:30 Blast Cells # 0.0 K/mm3 01/10/17 04:30 WBC Morphology Not Reportable 01/10/17 04:30 Hypersegmented Neuts Not Reportable 01/10/17 04:30 Hyposegmented Neuts Not Reportable 01/10/17 04:30 Hypogranular Neuts Not Reportable 01/10/17 04:30 Smudge Cells Not Reportable 01/10/17 04:30 Toxic Granulation Not Reportable 01/10/17 04:30 Toxic Vacuolation Not Reportable 01/10/17 04:30 Dohle Bodies Not Reportable 01/10/17 04:30 Pelger-Huet Anomaly Not Reportable 01/10/17 04:30 [place] Rods Not Reportable 01/10/17 04:30 Platelet Estimate Consistent w auto 01/10/17 04:30 Clumped Platelets Not Reportable 01/10/17 04:30 Plt Clumps, EDTA Not Reportable 01/10/17 04:30 Large Platelets Not Reportable 01/10/17 04:30 Giant Platelets Not Reportable 01/10/17 04:30 Platelet Satelliting Not Reportable 01/10/17 04:30 Plt Morphology Comment Not Reportable 01/10/17 04:30 RBC Morphology Not Reportable 01/10/17 04:30 Dimorphic RBCs Not Reportable 01/10/17 04:30 Polychromasia Not Reportable 01/10/17 04:30 Hypochromasia 1+ 01/10/17 04:30 Poikilocytosis Not Reportable 01/10/17 04:30 Anisocytosis Not Reportable 01/10/17 04:30 Microcytosis Not Reportable 01/10/17 04:30 Macrocytosis Not Reportable 01/10/17 04:30 Spherocytes Not Reportable 01/10/17 04:30 Pappenheimer Bodies Not Reportable 01/10/17 04:30 Sickle Cells Not Reportable 01/10/17 04:30 Target Cells Not Reportable 01/10/17 04:30 Tear Drop Cells Not Reportable 01/10/17 04:30 Ovalocytes Not Reportable 01/10/17 04:30 Helmet Cells Not Reportable 01/10/17 04:30 [place] Bodies Not Reportable 01/10/17 04:30 Monitor Rings Not Reportable 01/10/17 04:30 Jessica Cells Not Reportable 01/10/17 04:30 Bite Cells Not Reportable 01/10/17 04:30 Crenated Cell Not Reportable 01/10/17 04:30 Elliptocytes Not Reportable 01/10/17 04:30 Acanthocytes (Spur) Not Reportable 01/10/17 04:30 Rouleaux Not Reportable 01/10/17 04:30 Hemoglobin C Crystals Not Reportable 01/10/17 04:30 Schistocytes Not Reportable 01/10/17 04:30 Malaria parasites Not Reportable 01/10/17 04:30 Kyle Bodies Not Reportable 01/10/17 04:30 Hem Pathologist Commnt No 01/10/17 04:30 PT 14.4 Sec. (12.2-14.9) 01/09/17 10:16 INR 1.07 (0.87-1.13) 01/09/17 10:16 APTT 39.6 Sec. (24.2-36.6) H 01/09/17 10:16 POC ABG pH 7.485 (7.35-7.45) H 01/13/17 04:26 POC ABG pCO2 25.4 (35-45) L 01/13/17 04:26 POC ABG pO2 73 (80-105) L 01/13/17 04:26 POC ABG HCO3 19.1 01/13/17 04:26 POC ABG Total CO2 20 01/13/17 04:26 POC ABG O2 Sat 96 01/13/17 04:26 POC ABG Base Excess -4 01/13/17 04:26 VBG pH 7.284 (7.320-7.420) L 01/09/17 10:16 FiO2 30 % 01/13/17 04:26 Sodium 145 mmol/L (137-145) 01/14/17 04:50 Potassium 3.6 mmol/L (3.6-5.0) 01/14/17 04:50 Chloride 112.5 mmol/L (98-107) H 01/14/17 04:50 Carbon Dioxide 22 mmol/L (22-30) 01/14/17 04:50 Anion Gap 14 mmol/L 01/14/17 04:50 BUN 10 mg/dL (9-20) 01/14/17 04:50 Creatinine 0.9 mg/dL (0.8-1.5) 01/14/17 04:50 Estimated GFR > 60 ml/min 01/14/17 04:50 BUN/Creatinine Ratio 11 % 01/14/17 04:50 Glucose 149 mg/dL (75-100) H 01/14/17 04:50 POC Glucose 176 (70-105) H 01/14/17 05:10 Lactic Acid 1.00 mmol/L (0.7-2.0) 01/09/17 10:16 Calcium 8.1 mg/dL (8.4-10.2) L 01/14/17 04:50 Magnesium 2.10 mg/dL (1.7-2.3) 01/09/17 10:16 Total Bilirubin 0.30 mg/dL (0.1-1.2) 01/09/17 10:16 AST 25 units/L (5-40) 01/09/17 10:16 ALT 17 units/L (7-56) 01/09/17 10:16 Alkaline Phosphatase 151 units/L (35-129) H 01/09/17 10:16 Ammonia 35.0 umol/L (25-60) 01/09/17 10:16 Total Creatine Kinase 135 units/L (55-170) 01/09/17 10:16 CK-MB (CK-2) 7.1 ng/mL (0.0-4.0) H 01/09/17 10:16 CK-MB (CK-2) Rel Index 5.2 (0-4) H 01/09/17 10:16 Troponin T < 0.010 ng/mL (0.00-0.029) 01/09/17 10:16 NT-Pro-B Natriuret Pep 602.9 pg/mL (0-900) 01/09/17 10:16 Total Protein 8.2 g/dL (6.3-8.2) 01/09/17 10:16 Albumin 3.3 g/dL (3.9-5) L 01/09/17 10:16 Albumin/Globulin Ratio 0.7 % 01/09/17 10:16 TSH 52.800 mlU/mL (0.270-4.200) H 01/09/17 10:16 Free T4 0.78 ng/dL (0.76-1.46) 01/09/17 10:16 Total Cortisol 54.8 mcg/dL () 01/09/17 16:19 Urine Color Yellow (Yellow) 01/09/17 10:23 Urine Turbidity Clear (Clear) 01/09/17 10:23 Urine pH 6.0 (5.0-7.0) 01/09/17 10:23 Ur Specific [place] 1.011 (1.003-1.030) 01/09/17 10:23 Urine Protein <15 mg/dl mg/dL (Negative) 01/09/17 10:23 Urine Glucose (UA) Neg mg/dL (Negative) 01/09/17 10:23 Urine Ketones Neg mg/dL (Negative) 01/09/17 10:23 Urine Blood Neg (Negative) 01/09/17 10:23 Urine Nitrite Neg (Negative) 01/09/17 10:23 Urine Bilirubin Neg (Negative) 01/09/17 10:23 Urine Urobilinogen < 2.0 mg/dL (<2.0) 01/09/17 10:23 Ur Leukocyte Esterase Lg (Negative) 01/09/17 10:23 Urine WBC (Auto) 61.0 /HPF (0.0-6.0) H 01/09/17 10:23 Urine RBC (Auto) 5.0 /HPF (0.0-6.0) 01/09/17 10:23 Urine Bacteria (Auto) 1+ /HPF (Negative) 01/09/17 10:23 Salicylates < 0.3 mg/dL (2.8-20.0) L 01/09/17 10:16 Urine Opiates Screen Presumptive negative 01/09/17 10:23 Urine Methadone Screen Presumptive negative 01/09/17 10:23 Acetaminophen < 15.0 ug/mL (10.0-30.0) 01/09/17 10:16 Ur Barbiturates Screen Presumptive negative 01/09/17 10:23 Ur Phencyclidine Scrn Presumptive negative 01/09/17 10:23 Ur Amphetamines Screen Presumptive negative 01/09/17 10:23 U Benzodiazepines Scrn Presumptive negative 01/09/17 10:23 Urine Cocaine Screen Presumptive negative 01/09/17 10:23 U Marijuana (THC) Screen Presumptive negative 01/09/17 10:23 Drugs of Abuse Note Disclamer 01/09/17 10:23 Plasma/Serum Alcohol < 0.01 gm% (0-0.07) 01/09/17 10:16
[2017-01-14] MEDS: APRESOLINE IV PRN (12:43)
[2017-01-14] MEDS: SYNTHROID IV SCH (14:00)
--- NOTE | 2017-01-14 14:29 | Progress Note ---
Assessment and Plan Imp: 1. Hypoglycemia/hypothermia -> suspect due to too much insulin 2. Hypothyroidism; doubt myxedema coma with normal free T4 3. Acute respiratory failure, hypoxia 4. UTI/SIRS 5. Metabolic encephalopathy Rec: 1. No sedation 2. Rocephin; f/u cultures and send urine culture (ordered, not done for unclear reasons); suspicious that fever may be central in origin but consider repeating cultures if persistent 3. May have some irreversible encephalopathy due to hypoglycemia; ? MRI, ? EEG, etc.; recommending discussing with neurology 4. Stopped steroids; no clear indication 5. Change Synthroid to PO and reduce dose; see #2 above 6. GI/DVT PPx 7. Start TFs 8. Guarded to poor prognosis; complex patient Unable to locate family. Subjective Date of service: 01/14/17 Principal diagnosis: Acute respiratory failure Interval history: No events. On vent. Unresponsive. + Fever. Active Medications Dextrose (D50w (25gm) Syringe) 50 ml IV PRN PRN PRN Reason: Hypoglycemia Last Admin: 01/10/17 06:37 Dose: 50 ml Famotidine (Pepcid) 20 mg IV BID [facility] Last Admin: 01/14/17 10:42 Dose: 20 mg Heparin Sodium (Porcine) (Heparin) 5,000 unit SUB-Q Q12HR [facility] Last Admin: 01/14/17 10:42 Dose: 5,000 unit Hydralazine HCl (Apresoline) 10 mg IV Q4HR PRN PRN Reason: Hypertension Last Admin: 01/14/17 12:43 Dose: 10 mg Hydrophilic Ointment (Vaseline Lip Therapy) 1 applic TP Q2HR PRN PRN Reason: Dry Lips Dextrose/Sodium Chloride (D5ns) 1,000 mls @ 100 mls/hr IV DIRECT [facility] Last Admin: 01/14/17 10:42 Dose: 100 mls/hr Ceftriaxone Sodium (Rocephin/Ns 1 Gm/50 Ml) 1 gm in 50 mls @ 100 mls/hr IV Q24H [facility] PRN Reason: Protocol Last Admin: 01/12/17 22:11 Dose: 100 mls/hr Insulin Aspart (Novolog) 0 units SUB-Q Q8HR [facility] PRN Reason: Protocol Last Admin: 01/14/17 03:42 Dose: Not Given Labetalol HCl (Normodyne) 200 mg PO BID [facility] Last Admin: 01/14/17 10:43 Dose: 200 mg Levothyroxine Sodium (Synthroid) 200 mcg IV DAILY@0600 [facility] Last Admin: 01/13/17 06:00 Dose: 200 mcg Multi-Ingred Cream/Lotion/Oil/Oint (Artificial Tears Ophth Oint) 1 applic OU Q4HR PRN PRN Reason: Dry Eye(s) Sodium Chloride (Nacl 0.9% 500 Ml) 500 ml IV DIRECT [facility] Objective Vital Signs - 12hr 01/14/17 01/14/17 01/14/17 02:31 02:41 02:51 Temperature Pulse Rate 81 80 80 Respiratory 20 18 19 Rate Blood Pressure 167/80 167/80 167/80 O2 Sat by Pulse 100 100 100 Oximetry 01/14/17 01/14/17 01/14/17 03:00 03:11 03:21 Temperature Pulse Rate 80 77 79 Respiratory 20 16 18 Rate Blood Pressure 173/70 173/70 173/70 O2 Sat by Pulse 96 100 100 Oximetry 01/14/17 01/14/17 01/14/17 03:31 03:41 03:51 Temperature 101.2 F H Pulse Rate 78 79 77 Respiratory 17 17 16 Rate Blood Pressure 173/70 173/70 173/79 O2 Sat by Pulse 100 100 100 Oximetry 01/14/17 01/14/17 01/14/17 04:00 04:11 04:21 Temperature Pulse Rate 77 78 75 Respiratory 15 16 15 Rate Blood Pressure 166/77 166/77 166/77 O2 Sat by Pulse 97 100 100 Oximetry 01/14/17 01/14/17 01/14/17 04:31 04:41 04:51 Temperature Pulse Rate 76 75 76 Respiratory 16 15 17 Rate Blood Pressure 166/77 166/77 166/77 O2 Sat by Pulse 100 100 100 Oximetry 01/14/17 01/14/17 01/14/17 05:00 05:11 05:21 Temperature Pulse Rate 74 75 74 Respiratory 16 17 16 Rate Blood Pressure 163/75 163/75 163/75 O2 Sat by Pulse 97 100 100 Oximetry 01/14/17 01/14/17 01/14/17 05:31 05:41 05:51 Temperature Pulse Rate 76 73 72 Respiratory 17 14 15 Rate Blood Pressure 163/75 163/75 163/75 O2 Sat by Pulse 100 100 100 Oximetry 01/14/17 01/14/17 01/14/17 06:00 06:11 06:21 Temperature Pulse Rate 71 72 73 Respiratory 15 15 18 Rate Blood Pressure 158/71 158/71 158/71 O2 Sat by Pulse 97 100 100 Oximetry 01/14/17 01/14/17 01/14/17 06:31 06:41 06:51 Temperature Pulse Rate 73 73 74 Respiratory 18 14 18 Rate Blood Pressure 158/71 158/71 158/71 O2 Sat by Pulse 100 100 100 Oximetry 01/14/17 01/14/17 01/14/17 07:00 07:11 07:21 Temperature Pulse Rate 72 75 74 Respiratory 14 19 15 Rate Blood Pressure 159/68 159/68 159/68 O2 Sat by Pulse 97 100 100 Oximetry 01/14/17 01/14/17 01/14/17 07:31 07:41 07:51 Temperature Pulse Rate 76 76 75 Respiratory 17 16 17 Rate Blood Pressure 159/68 159/68 159/68 O2 Sat by Pulse 99 100 99 Oximetry 01/14/17 01/14/17 01/14/17 08:00 08:11 08:21 Temperature 100.7 F H Pulse Rate 78 79 81 Respiratory 26 H 19 22 Rate Blood Pressure 159/72 159/72 159/72 O2 Sat by Pulse 100 100 100 Oximetry 01/14/17 01/14/17 01/14/17 08:31 08:41 08:51 Temperature Pulse Rate 80 81 82 Respiratory 19 18 18 Rate Blood Pressure 159/72 159/72 159/72 O2 Sat by Pulse 99 99 99 Oximetry 01/14/17 01/14/17 01/14/17 09:00 09:11 09:21 Temperature Pulse Rate 81 82 82 Respiratory 19 21 20 Rate Blood Pressure 166/77 166/77 166/77 O2 Sat by Pulse 95 99 99 Oximetry 01/14/17 01/14/17 01/14/17 09:31 09:41 09:51 Temperature Pulse Rate 83 82 82 Respiratory 19 20 21 Rate Blood Pressure 166/77 166/77 166/77 O2 Sat by Pulse 99 99 100 Oximetry 01/14/17 01/14/17 01/14/17 10:00 10:11 10:21 Temperature Pulse Rate 82 84 83 Respiratory 19 18 17 Rate Blood Pressure 174/73 174/73 174/73 O2 Sat by Pulse 96 99 99 Oximetry 01/14/17 01/14/17 01/14/17 10:31 10:41 10:43 Temperature Pulse Rate 83 84 84 Respiratory 17 17 Rate Blood Pressure 174/73 174/73 174/73 O2 Sat by Pulse 99 99 Oximetry 01/14/17 01/14/17 01/14/17 10:51 11:00 11:11 Temperature Pulse Rate 84 84 84 Respiratory 16 19 17 Rate Blood Pressure 174/73 169/75 169/75 O2 Sat by Pulse 99 95 99 Oximetry 01/14/17 01/14/17 01/14/17 11:20 11:30 11:40 Temperature Pulse Rate 86 85 85 Respiratory 19 17 17 Rate Blood Pressure 169/75 169/75 O2 Sat by Pulse 99 99 100 Oximetry 01/14/17 01/14/17 01/14/17 11:50 12:00 12:10 Temperature 100.8 F H Pulse Rate 85 84 84 Respiratory 17 18 16 Rate Blood Pressure 169/75 174/68 174/68 O2 Sat by Pulse 100 98 99 Oximetry 01/14/17 01/14/17 01/14/17 12:20 12:30 12:40 Temperature Pulse Rate 83 83 82 Respiratory 16 15 16 Rate Blood Pressure 174/68 174/68 174/68 O2 Sat by Pulse 99 100 99 Oximetry 01/14/17 01/14/17 01/14/17 12:43 12:50 13:00 Temperature Pulse Rate 82 82 83 Respiratory 15 17 Rate Blood Pressure 174/68 174/68 139/66 O2 Sat by Pulse 99 96 Oximetry 01/14/17 01/14/17 01/14/17 13:10 13:20 13:30 Temperature Pulse Rate 85 85 85 Respiratory 19 19 20 Rate Blood Pressure 139/66 139/66 139/66 O2 Sat by Pulse 98 98 98 Oximetry 01/14/17 14:06 Temperature Pulse Rate 85 Respiratory 18 Rate Blood Pressure 118/59 O2 Sat by Pulse 99 Oximetry Constitutional: other (intubated, critically ill on vent) Eyes: non-icteric ENT: oropharynx moist Neck: supple Effort: normal Ascultation: Bilateral: clear Cardiovascular: regular rate and rhythm (no mrg) Gastrointestinal: normoactive bowel sounds, soft, non-tender, non-distended Integumentary: rash (lesions all over trunk/extremities (most appear to be scabs )) Extremities: no cyanosis, no edema, pink and warm Neurologic: other (unresponsive) Psychiatric: other (unable to obtain) CBC and BMP: 01/14/17 04:50 01/14/17 04:50 ABG, PT/INR, D-dimer: ABG POC ABG pH 7.485 (7.35-7.45) H 01/13/17 04:26 POC ABG pCO2 25.4 (35-45) L 01/13/17 04:26 POC ABG pO2 73 (80-105) L 01/13/17 04:26 POC ABG HCO3 19.1 01/13/17 04:26 POC ABG Total CO2 20 01/13/17 04:26 POC ABG O2 Sat 96 01/13/17 04:26 PT/INR, D-dimer PT 14.4 Sec. (12.2-14.9) 01/09/17 10:16 INR 1.07 (0.87-1.13) 01/09/17 10:16 Abnormal lab findings: Abnormal Labs 01/09/17 01/09/17 01/09/17 12:49 13:13 14:21 WBC RBC Hgb Hct MCV MCH RDW Plt Count Lymph % (Auto) [place] % (Auto) Seg Neutrophils % Seg Neuts % (Manual) Lymphocytes % (Manual) Seg Neutrophils # Seg Neutrophils # Man Lymphocytes # (Manual) POC ABG pH POC ABG pCO2 POC ABG pO2 Potassium Chloride Carbon Dioxide BUN Glucose POC Glucose < 40 L 128 H 65 L Calcium 01/09/17 01/09/17 01/09/17 15:09 16:28 17:14 WBC RBC Hgb Hct MCV MCH RDW Plt Count Lymph % (Auto) [place] % (Auto) Seg Neutrophils % Seg Neuts % (Manual) Lymphocytes % (Manual) Seg Neutrophils # Seg Neutrophils # Man Lymphocytes # (Manual) POC ABG pH POC ABG pCO2 POC ABG pO2 Potassium Chloride Carbon Dioxide BUN Glucose POC Glucose 120 H 44 L 112 H Calcium 01/10/17 01/10/17 01/10/17 04:30 04:30 05:41 WBC 24.1 H RBC 3.38 L Hgb 8.5 L Hct 26.0 L MCV 77 L MCH 25 L RDW 17.9 H Plt Count 474 H Lymph % (Auto) [place] % (Auto) Seg Neutrophils % Seg Neuts % (Manual) 88.0 H Lymphocytes % (Manual) 4.0 L Seg Neutrophils # Seg Neutrophils # Man 21.2 H Lymphocytes # (Manual) 1.0 L POC ABG pH POC ABG pCO2 POC ABG pO2 Potassium Chloride Carbon Dioxide 17 L BUN 27 H Glucose POC Glucose 68 L Calcium 7.5 L 01/10/17 01/10/17 01/10/17 05:45 07:47 10:50 WBC RBC Hgb Hct MCV MCH RDW Plt Count Lymph % (Auto) [place] % (Auto) Seg Neutrophils % Seg Neuts % (Manual) Lymphocytes % (Manual) Seg Neutrophils # Seg Neutrophils # Man Lymphocytes # (Manual) POC ABG pH POC ABG pCO2 26.6 L POC ABG pO2 207 H Potassium Chloride Carbon Dioxide BUN Glucose POC Glucose 148 H 165 H Calcium 01/10/17 01/10/17 01/10/17 13:41 20:20 21:39 WBC RBC Hgb Hct MCV MCH RDW Plt Count Lymph % (Auto) [place] % (Auto) Seg Neutrophils % Seg Neuts % (Manual) Lymphocytes % (Manual) Seg Neutrophils # Seg Neutrophils # Man Lymphocytes # (Manual) POC ABG pH POC ABG pCO2 POC ABG pO2 Potassium Chloride Carbon Dioxide BUN Glucose POC Glucose 114 H 150 H 175 H Calcium 01/10/17 01/11/17 01/11/17 23:24 00:19 04:06 WBC RBC Hgb Hct MCV MCH RDW Plt Count Lymph % (Auto) [place] % (Auto) Seg Neutrophils % Seg Neuts % (Manual) Lymphocytes % (Manual) Seg Neutrophils # Seg Neutrophils # Man Lymphocytes # (Manual) POC ABG pH 7.463 H POC ABG pCO2 26.2 L POC ABG pO2 185 H Potassium Chloride Carbon Dioxide BUN Glucose POC Glucose 155 H 163 H Calcium 01/11/17 01/11/17 01/11/17 05:20 05:20 06:21 WBC 15.2 H RBC 3.40 L Hgb 8.9 L Hct 26.3 L MCV 78 L MCH 26 L RDW 18.6 H Plt Count 462 H Lymph % (Auto) 13.2 L [place] % (Auto) Seg Neutrophils % 80.8 H Seg Neuts % (Manual) Lymphocytes % (Manual) Seg Neutrophils # 12.3 H Seg Neutrophils # Man Lymphocytes # (Manual) POC ABG pH POC ABG pCO2 POC ABG pO2 Potassium 3.4 L Chloride 111.5 H Carbon Dioxide 17 L BUN Glucose 147 H POC Glucose 139 H Calcium 8.0 L 01/11/17 01/11/17 01/11/17 07:57 11:46 16:50 WBC RBC Hgb Hct MCV MCH RDW Plt Count Lymph % (Auto) [place] % (Auto) Seg Neutrophils % Seg Neuts % (Manual) Lymphocytes % (Manual) Seg Neutrophils # Seg Neutrophils # Man Lymphocytes # (Manual) POC ABG pH POC ABG pCO2 POC ABG pO2 Potassium Chloride Carbon Dioxide BUN Glucose POC Glucose 188 H 199 H 235 H Calcium 01/11/17 01/12/17 01/12/17 23:15 05:02 06:56 WBC RBC Hgb Hct MCV MCH RDW Plt Count Lymph % (Auto) [place] % (Auto) Seg Neutrophils % Seg Neuts % (Manual) Lymphocytes % (Manual) Seg Neutrophils # Seg Neutrophils # Man Lymphocytes # (Manual) POC ABG pH POC ABG pCO2 28.0 L POC ABG pO2 178 H Potassium Chloride Carbon Dioxide BUN Glucose POC Glucose 155 H 119 H Calcium 01/12/17 01/13/17 01/13/17 14:50 03:37 03:37 WBC RBC 3.61 L Hgb 9.3 L Hct 28.0 L MCV 78 L MCH 26 L RDW 18.2 H Plt Count Lymph % (Auto) [place] % (Auto) Seg Neutrophils % Seg Neuts % (Manual) Lymphocytes % (Manual) Seg Neutrophils # Seg Neutrophils # Man Lymphocytes # (Manual) POC ABG pH POC ABG pCO2 POC ABG pO2 Potassium Chloride 112.4 H Carbon Dioxide 19 L BUN Glucose 118 H POC Glucose 164 H Calcium 8.0 L 01/13/17 01/13/17 01/13/17 04:26 06:15 11:50 WBC RBC Hgb Hct MCV MCH RDW Plt Count Lymph % (Auto) [place] % (Auto) Seg Neutrophils % Seg Neuts % (Manual) Lymphocytes % (Manual) Seg Neutrophils # Seg Neutrophils # Man Lymphocytes # (Manual) POC ABG pH 7.485 H POC ABG pCO2 25.4 L POC ABG pO2 73 L Potassium Chloride Carbon Dioxide BUN Glucose POC Glucose 116 H 171 H Calcium 01/13/17 01/14/17 01/14/17 17:31 00:02 04:50 WBC RBC 3.32 L Hgb 8.5 L Hct 26.1 L MCV 79 L MCH 26 L RDW 18.2 H Plt Count Lymph % (Auto) [place] % (Auto) 9.0 H Seg Neutrophils % Seg Neuts % (Manual) Lymphocytes % (Manual) Seg Neutrophils # Seg Neutrophils # Man Lymphocytes # (Manual) POC ABG pH POC ABG pCO2 POC ABG pO2 Potassium Chloride Carbon Dioxide BUN Glucose POC Glucose 203 H 157 H Calcium 01/14/17 01/14/17 04:50 05:10 WBC RBC Hgb Hct MCV MCH RDW Plt Count Lymph % (Auto) [place] % (Auto) Seg Neutrophils % Seg Neuts % (Manual) Lymphocytes % (Manual) Seg Neutrophils # Seg Neutrophils # Man Lymphocytes # (Manual) POC ABG pH POC ABG pCO2 POC ABG pO2 Potassium Chloride 112.5 H Carbon Dioxide BUN Glucose 149 H POC Glucose 176 H Calcium 8.1 L Chest x-ray: report reviewed, image reviewed (normal)
[2017-01-14] MEDS ORDERED: SODIUM BICARBONATE FEEDTUBE PRN (14:33)
[2017-01-14] MEDS ORDERED: SIMPLE SYRUP FEEDTUBE PRN (14:33)
[2017-01-14] MEDS ORDERED: PANCREAZE DR 10,500 UNIT FEEDTUBE PRN (14:33)
[2017-01-14 14:51] LABS: Bilirubin,Urine NEG (Negative); Blood,Urine SM (Negative); Color,Urine Yellow (Yellow); Mucus,Urine FEW /HPF; Protein,Urine <15 mg/dL mg/dL (Negative); Urobilinogen,Urine < 2.0 mg/dL (<2.0)
[2017-01-14] MEDS ORDERED: VANCOMYCIN 1,250 MG in NACL 0.9% 250ML 250 ML IV ONE (18:45)
[2017-01-14] MEDS ORDERED: VANCOMYCIN PHARMACY TO DOSE IV SCH (19:00)
[2017-01-14] MEDS: ROCEPHIN/NS 1 GM/50 ML 1 GM/50 ML BAG IV SCH ×2 (22:40→23:30)
[2017-01-14] MEDS: ZOSYN/NS 4.5GM/100ML 4.5 GM/100 ML VIAL IV SCH (22:40)
[2017-01-14] MEDS: TYLENOL FEEDTUBE PRN (22:42)
[2017-01-15] MEDS: NOVOLOG SUB-Q SCH ×5 (01:15→22:00)
[2017-01-15] MEDS: ZOSYN/NS 4.5GM/100ML 4.5 GM/100 ML VIAL IV SCH ×3 (05:24→22:13)
[2017-01-15] MEDS: SYNTHROID PO SCH (05:24)
[2017-01-15] MEDS: VANCOMYCIN/NS 1 GM/250 ML 1 GM/250 ML BAG IV SCH ×3 (06:00→18:16)
[2017-01-15] MEDS: D5NS 1,000 ML IV SCH ×2 (06:29→16:41)
--- NOTE | 2017-01-15 10:17 | XRay Report ---
AP CHEST: HISTORY: Followup respiratory failure Lines and support devices are unchanged since yesterday's exam. Heart size and pulmonary vascularity are within normal limits. The lungs remain generally clear. No acute process is appreciated. IMPRESSION: No change.
[2017-01-15] MEDS: HEPARIN SUB-Q SCH ×2 (10:50→22:14)
[2017-01-15] MEDS: NORMODYNE PO SCH ×2 (10:51→22:13)
[2017-01-15] MEDS: PEPCID IV SCH ×2 (10:51→22:14)
--- NOTE | 2017-01-15 11:28 | Progress Note ---
Assessment and Plan Hypoglycemia/hypothermia -> suspect due to too much insulin Hypothyroidism; doubt myxedema coma with normal free T4 Acute respiratory failure, hypoxia UTI/SIRS Metabolic encephalopathy. No signs of recovery at this point, per neurology Recommendations Maintain off sedation Continue antibiotics. Watch for fever. Chest x-rays are negative at this point. If persistent fever, re-culture patient Continue with spontaneous breathing trials. The patient has been able to tolerate spontaneous ventilation on BiPAP. Unable to extubate due to neurological status. Consider tracheotomy in order to complete weaning, in order to complete weaning from ventilator support. This, in view of neurological status. GI/DVT PPx Tube feeding nutrition Guarded to poor prognosis; complex patient Critical care time with a 31 minutes of [id number] evaluation and coordination of care Subjective Date of service: 01/15/17 Principal diagnosis: Acute respiratory failure Interval history: Sedated and intubated Objective Vital Signs - 12hr 01/14/17 01/14/17 01/14/17 23:30 23:40 23:48 Temperature 98 F Pulse Rate 69 69 Respiratory 13 13 Rate Blood Pressure 163/71 163/71 O2 Sat by Pulse 100 100 Oximetry 01/14/17 01/14/17 01/15/17 23:50 23:56 00:00 Temperature Pulse Rate 68 68 67 Respiratory 13 13 Rate Blood Pressure 163/71 163/71 154/65 O2 Sat by Pulse 100 100 98 Oximetry 01/15/17 01/15/17 01/15/17 00:08 00:10 00:20 Temperature Pulse Rate 68 70 68 Respiratory 14 15 15 Rate Blood Pressure 154/65 154/65 154/65 O2 Sat by Pulse 100 100 100 Oximetry 01/15/17 01/15/17 01/15/17 00:30 00:40 00:50 Temperature Pulse Rate 68 67 70 Respiratory 15 12 13 Rate Blood Pressure 154/65 154/65 154/65 O2 Sat by Pulse 100 100 100 Oximetry 01/15/17 01/15/17 01/15/17 01:00 01:10 01:20 Temperature Pulse Rate 68 66 64 Respiratory 15 14 13 Rate Blood Pressure 152/63 152/63 152/63 O2 Sat by Pulse 99 100 100 Oximetry 01/15/17 01/15/17 01/15/17 01:30 01:40 01:50 Temperature Pulse Rate 64 63 63 Respiratory 13 14 18 Rate Blood Pressure 152/63 152/63 152/63 O2 Sat by Pulse 100 100 100 Oximetry 01/15/17 01/15/17 01/15/17 02:00 02:10 02:20 Temperature Pulse Rate 60 58 L 58 L Respiratory 17 15 17 Rate Blood Pressure 152/63 152/63 152/63 O2 Sat by Pulse 100 100 100 Oximetry 01/15/17 01/15/17 01/15/17 02:30 02:40 02:50 Temperature Pulse Rate 59 L 57 L 58 L Respiratory 12 13 15 Rate Blood Pressure 152/63 152/63 152/63 O2 Sat by Pulse 100 100 100 Oximetry 01/15/17 01/15/17 01/15/17 03:00 03:10 03:20 Temperature Pulse Rate 58 L 57 L 57 L Respiratory 15 14 11 L Rate Blood Pressure 161/65 161/65 161/65 O2 Sat by Pulse 100 100 100 Oximetry 01/15/17 01/15/17 01/15/17 03:27 03:30 03:40 Temperature Pulse Rate 56 L 55 L 56 L Respiratory 13 12 Rate Blood Pressure 161/65 161/65 161/65 O2 Sat by Pulse 100 100 Oximetry 01/15/17 01/15/17 01/15/17 03:50 03:55 04:00 Temperature 97.8 F Pulse Rate 56 L 56 L Respiratory 12 19 Rate Blood Pressure 161/65 164/65 O2 Sat by Pulse 100 100 Oximetry 01/15/17 01/15/17 01/15/17 04:10 04:20 04:30 Temperature Pulse Rate 56 L 55 L 54 L Respiratory 13 13 12 Rate Blood Pressure 164/65 164/65 164/65 O2 Sat by Pulse 100 100 100 Oximetry 01/15/17 01/15/17 01/15/17 04:40 04:50 05:00 Temperature Pulse Rate 53 L 56 L 55 L Respiratory 13 13 16 Rate Blood Pressure 164/65 164/65 129/64 O2 Sat by Pulse 100 100 99 Oximetry 01/15/17 01/15/17 01/15/17 05:10 05:20 05:30 Temperature Pulse Rate 55 L 58 L 57 L Respiratory 12 18 12 Rate Blood Pressure 164/65 164/65 164/65 O2 Sat by Pulse 100 100 100 Oximetry 01/15/17 01/15/17 01/15/17 05:40 05:50 06:00 Temperature Pulse Rate 57 L 58 L Respiratory 12 18 Rate Blood Pressure 129/64 129/64 129/64 O2 Sat by Pulse 100 100 98 Oximetry 01/15/17 01/15/17 01/15/17 06:10 06:20 06:30 Temperature Pulse Rate 60 57 L 56 L Respiratory 16 14 16 Rate Blood Pressure 114/57 114/57 114/57 O2 Sat by Pulse 100 100 100 Oximetry 01/15/17 01/15/17 01/15/17 06:40 06:50 07:00 Temperature Pulse Rate 57 L 58 L 59 L Respiratory 15 16 18 Rate Blood Pressure 114/57 114/57 130/57 O2 Sat by Pulse 100 100 99 Oximetry 01/15/17 01/15/17 01/15/17 07:10 07:20 07:30 Temperature Pulse Rate 58 L 59 L 59 L Respiratory 15 15 13 Rate Blood Pressure 130/57 130/57 130/57 O2 Sat by Pulse 100 100 100 Oximetry 01/15/17 01/15/17 01/15/17 07:40 07:50 08:00 Temperature 97.9 F Pulse Rate 59 L 64 62 Respiratory 12 15 14 Rate Blood Pressure 130/57 130/57 128/65 O2 Sat by Pulse 100 100 100 Oximetry 01/15/17 01/15/17 01/15/17 08:10 08:20 08:30 Temperature Pulse Rate 63 61 63 Respiratory 16 13 19 Rate Blood Pressure 128/65 128/65 128/65 O2 Sat by Pulse 100 100 100 Oximetry 01/15/17 01/15/17 01/15/17 08:40 08:50 09:00 Temperature Pulse Rate 64 69 71 Respiratory 18 19 19 Rate Blood Pressure 128/65 128/65 135/66 O2 Sat by Pulse 100 100 100 Oximetry 01/15/17 01/15/17 01/15/17 09:10 09:20 09:30 Temperature Pulse Rate 71 71 72 Respiratory 18 18 16 Rate Blood Pressure 135/66 135/66 135/66 O2 Sat by Pulse 100 100 100 Oximetry 01/15/17 01/15/17 01/15/17 09:40 09:50 10:00 Temperature Pulse Rate 73 70 71 Respiratory 19 15 16 Rate Blood Pressure 135/66 135/66 142/69 O2 Sat by Pulse 100 100 99 Oximetry 01/15/17 01/15/17 10:10 10:51 Temperature Pulse Rate 71 74 Respiratory 15 Rate Blood Pressure 142/69 142/69 O2 Sat by Pulse 100 Oximetry Constitutional: no acute distress, other (intubated, on vent) Eyes: non-icteric ENT: oropharynx moist Neck: supple Effort: normal Ascultation: Bilateral: clear Cardiovascular: regular rate and rhythm ( ) Gastrointestinal: normoactive bowel sounds, soft, non-tender, non-distended Integumentary: rash (lesions all over trunk/extremities (most appear to be scabs )) Extremities: no cyanosis, no edema, pink and warm Neurologic: non-focal exam, pupils equal and round, other (unresponsive, GCS 3) Psychiatric: other (unable to obtain) CBC and BMP: 01/14/17 04:50 01/14/17 04:50 ABG, PT/INR, D-dimer: ABG POC ABG pH 7.485 (7.35-7.45) H 01/13/17 04:26 POC ABG pCO2 25.4 (35-45) L 01/13/17 04:26 POC ABG pO2 73 (80-105) L 01/13/17 04:26 POC ABG HCO3 19.1 01/13/17 04:26 POC ABG Total CO2 20 01/13/17 04:26 POC ABG O2 Sat 96 01/13/17 04:26 PT/INR, D-dimer PT 14.4 Sec. (12.2-14.9) 01/09/17 10:16 INR 1.07 (0.87-1.13) 01/09/17 10:16 Abnormal lab findings: Abnormal Labs 01/09/17 01/09/17 01/09/17 12:49 13:13 14:21 WBC RBC Hgb Hct MCV MCH RDW Plt Count Lymph % (Auto) [place] % (Auto) Seg Neutrophils % Seg Neuts % (Manual) Lymphocytes % (Manual) Seg Neutrophils # Seg Neutrophils # Man Lymphocytes # (Manual) POC ABG pH POC ABG pCO2 POC ABG pO2 Potassium Chloride Carbon Dioxide BUN Glucose POC Glucose < 40 L 128 H 65 L Calcium Urine WBC (Auto) 01/09/17 01/09/17 01/09/17 15:09 16:28 17:14 WBC RBC Hgb Hct MCV MCH RDW Plt Count Lymph % (Auto) [place] % (Auto) Seg Neutrophils % Seg Neuts % (Manual) Lymphocytes % (Manual) Seg Neutrophils # Seg Neutrophils # Man Lymphocytes # (Manual) POC ABG pH POC ABG pCO2 POC ABG pO2 Potassium Chloride Carbon Dioxide BUN Glucose POC Glucose 120 H 44 L 112 H Calcium Urine WBC (Auto) 01/10/17 01/10/17 01/10/17 04:30 04:30 05:41 WBC 24.1 H RBC 3.38 L Hgb 8.5 L Hct 26.0 L MCV 77 L MCH 25 L RDW 17.9 H Plt Count 474 H Lymph % (Auto) [place] % (Auto) Seg Neutrophils % Seg Neuts % (Manual) 88.0 H Lymphocytes % (Manual) 4.0 L Seg Neutrophils # Seg Neutrophils # Man 21.2 H Lymphocytes # (Manual) 1.0 L POC ABG pH POC ABG pCO2 POC ABG pO2 Potassium Chloride Carbon Dioxide 17 L BUN 27 H Glucose POC Glucose 68 L Calcium 7.5 L Urine WBC (Auto) 01/10/17 01/10/17 01/10/17 05:45 07:47 10:50 WBC RBC Hgb Hct MCV MCH RDW Plt Count Lymph % (Auto) [place] % (Auto) Seg Neutrophils % Seg Neuts % (Manual) Lymphocytes % (Manual) Seg Neutrophils # Seg Neutrophils # Man Lymphocytes # (Manual) POC ABG pH POC ABG pCO2 26.6 L POC ABG pO2 207 H Potassium Chloride Carbon Dioxide BUN Glucose POC Glucose 148 H 165 H Calcium Urine WBC (Auto) 01/10/17 01/10/17 01/10/17 13:41 20:20 21:39 WBC RBC Hgb Hct MCV MCH RDW Plt Count Lymph % (Auto) [place] % (Auto) Seg Neutrophils % Seg Neuts % (Manual) Lymphocytes % (Manual) Seg Neutrophils # Seg Neutrophils # Man Lymphocytes # (Manual) POC ABG pH POC ABG pCO2 POC ABG pO2 Potassium Chloride Carbon Dioxide BUN Glucose POC Glucose 114 H 150 H 175 H Calcium Urine WBC (Auto) 01/10/17 01/11/17 01/11/17 23:24 00:19 04:06 WBC RBC Hgb Hct MCV MCH RDW Plt Count Lymph % (Auto) [place] % (Auto) Seg Neutrophils % Seg Neuts % (Manual) Lymphocytes % (Manual) Seg Neutrophils # Seg Neutrophils # Man Lymphocytes # (Manual) POC ABG pH 7.463 H POC ABG pCO2 26.2 L POC ABG pO2 185 H Potassium Chloride Carbon Dioxide BUN Glucose POC Glucose 155 H 163 H Calcium Urine WBC (Auto) 01/11/17 01/11/17 01/11/17 05:20 05:20 06:21 WBC 15.2 H RBC 3.40 L Hgb 8.9 L Hct 26.3 L MCV 78 L MCH 26 L RDW 18.6 H Plt Count 462 H Lymph % (Auto) 13.2 L [place] % (Auto) Seg Neutrophils % 80.8 H Seg Neuts % (Manual) Lymphocytes % (Manual) Seg Neutrophils # 12.3 H Seg Neutrophils # Man Lymphocytes # (Manual) POC ABG pH POC ABG pCO2 POC ABG pO2 Potassium 3.4 L Chloride 111.5 H Carbon Dioxide 17 L BUN Glucose 147 H POC Glucose 139 H Calcium 8.0 L Urine WBC (Auto) 01/11/17 01/11/17 01/11/17 07:57 11:46 16:50 WBC RBC Hgb Hct MCV MCH RDW Plt Count Lymph % (Auto) [place] % (Auto) Seg Neutrophils % Seg Neuts % (Manual) Lymphocytes % (Manual) Seg Neutrophils # Seg Neutrophils # Man Lymphocytes # (Manual) POC ABG pH POC ABG pCO2 POC ABG pO2 Potassium Chloride Carbon Dioxide BUN Glucose POC Glucose 188 H 199 H 235 H Calcium Urine WBC (Auto) 01/11/17 01/12/17 01/12/17 23:15 05:02 06:56 WBC RBC Hgb Hct MCV MCH RDW Plt Count Lymph % (Auto) [place] % (Auto) Seg Neutrophils % Seg Neuts % (Manual) Lymphocytes % (Manual) Seg Neutrophils # Seg Neutrophils # Man Lymphocytes # (Manual) POC ABG pH POC ABG pCO2 28.0 L POC ABG pO2 178 H Potassium Chloride Carbon Dioxide BUN Glucose POC Glucose 155 H 119 H Calcium Urine WBC (Auto) 01/12/17 01/13/17 01/13/17 14:50 03:37 03:37 WBC RBC 3.61 L Hgb 9.3 L Hct 28.0 L MCV 78 L MCH 26 L RDW 18.2 H Plt Count Lymph % (Auto) [place] % (Auto) Seg Neutrophils % Seg Neuts % (Manual) Lymphocytes % (Manual) Seg Neutrophils # Seg Neutrophils # Man Lymphocytes # (Manual) POC ABG pH POC ABG pCO2 POC ABG pO2 Potassium Chloride 112.4 H Carbon Dioxide 19 L BUN Glucose 118 H POC Glucose 164 H Calcium 8.0 L Urine WBC (Auto) 01/13/17 01/13/17 01/13/17 04:26 06:15 11:50 WBC RBC Hgb Hct MCV MCH RDW Plt Count Lymph % (Auto) [place] % (Auto) Seg Neutrophils % Seg Neuts % (Manual) Lymphocytes % (Manual) Seg Neutrophils # Seg Neutrophils # Man Lymphocytes # (Manual) POC ABG pH 7.485 H POC ABG pCO2 25.4 L POC ABG pO2 73 L Potassium Chloride Carbon Dioxide BUN Glucose POC Glucose 116 H 171 H Calcium Urine WBC (Auto) 01/13/17 01/14/17 01/14/17 17:31 00:02 04:50 WBC RBC 3.32 L Hgb 8.5 L Hct 26.1 L MCV 79 L MCH 26 L RDW 18.2 H Plt Count Lymph % (Auto) [place] % (Auto) 9.0 H Seg Neutrophils % Seg Neuts % (Manual) Lymphocytes % (Manual) Seg Neutrophils # Seg Neutrophils # Man Lymphocytes # (Manual) POC ABG pH POC ABG pCO2 POC ABG pO2 Potassium Chloride Carbon Dioxide BUN Glucose POC Glucose 203 H 157 H Calcium Urine WBC (Auto) 01/14/17 01/14/17 01/14/17 04:50 05:10 11:27 WBC RBC Hgb Hct MCV MCH RDW Plt Count Lymph % (Auto) [place] % (Auto) Seg Neutrophils % Seg Neuts % (Manual) Lymphocytes % (Manual) Seg Neutrophils # Seg Neutrophils # Man Lymphocytes # (Manual) POC ABG pH POC ABG pCO2 POC ABG pO2 Potassium Chloride 112.5 H Carbon Dioxide BUN Glucose 149 H POC Glucose 176 H 147 H Calcium 8.1 L Urine WBC (Auto) 01/14/17 01/14/17 01/15/17 14:07 16:52 00:04 WBC RBC Hgb Hct MCV MCH RDW Plt Count Lymph % (Auto) [place] % (Auto) Seg Neutrophils % Seg Neuts % (Manual) Lymphocytes % (Manual) Seg Neutrophils # Seg Neutrophils # Man Lymphocytes # (Manual) POC ABG pH POC ABG pCO2 POC ABG pO2 Potassium Chloride Carbon Dioxide BUN Glucose POC Glucose 131 H 193 H Calcium Urine WBC (Auto) 53.0 H 01/15/17 05:26 WBC RBC Hgb Hct MCV MCH RDW Plt Count Lymph % (Auto) [place] % (Auto) Seg Neutrophils % Seg Neuts % (Manual) Lymphocytes % (Manual) Seg Neutrophils # Seg Neutrophils # Man Lymphocytes # (Manual) POC ABG pH POC ABG pCO2 POC ABG pO2 Potassium Chloride Carbon Dioxide BUN Glucose POC Glucose 215 H Calcium Urine WBC (Auto)
--- NOTE | 2017-01-15 12:24 | Consultation ---
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 denies: smoking, alcohol abuse, prescription drug abuse, IV drug use Family history: hypertension Medications and Allergies Allergies Allergy/AdvReac Type Severity Reaction Status Date / Time No Known Allergies Allergy Unverified 12/26/16 18:23 Home Medications Medication Instructions Recorded Confirmed Last Taken Type Insulin Detemir [Levemir] 12 units SUB-Q QHS #30 units 01/02/17 01/09/17 Unknown Rx Labetalol [Normodyne TAB] 200 mg PO BID #60 tablet 01/02/17 01/09/17 Unknown Rx Active Meds: Active Medications Acetaminophen (Tylenol) 650 mg FEEDTUBE Q6H PRN PRN Reason: Non Cardiac Pain Or Temp>101 Last Admin: 01/14/17 22:42 Dose: 650 mg Lipase/Protease/Amylase (Pancreaze Dr 10,500 Unit) 1 each FEEDTUBE PRN PRN PRN Reason: For Clogged Feeding Tube Dextrose (D50w (25gm) Syringe) 50 ml IV PRN PRN PRN Reason: Hypoglycemia Last Admin: 01/10/17 06:37 Dose: 50 ml Famotidine (Pepcid) 20 mg IV BID PAOLO Last Admin: 01/15/17 10:51 Dose: 20 mg Heparin Sodium (Porcine) (Heparin) 5,000 unit SUB-Q Q12HR [facility]O Last Admin: 01/15/17 10:50 Dose: 5,000 unit Hydralazine HCl (Apresoline) 10 mg IV Q4HR PRN PRN Reason: Hypertension Last Admin: 01/14/17 12:43 Dose: 10 mg Hydrophilic Ointment (Vaseline Lip Therapy) 1 applic TP Q2HR PRN PRN Reason: Dry Lips Dextrose/Sodium Chloride (D5ns) 1,000 mls @ 100 mls/hr IV DIRECT PAOLO Last Admin: 01/15/17 06:29 Dose: 100 mls/hr Ceftriaxone Sodium (Rocephin/Ns 1 Gm/50 Ml) 1 gm in 50 mls @ 100 mls/hr IV Q24H [facility] PRN Reason: Protocol Last Admin: 01/14/17 23:30 Dose: 100 mls/hr Piperacillin Sod/Tazobactam Sod (Zosyn/Ns 4.5gm/100ml) 4.5 gm in 100 mls @ 200 mls/hr IV Q8HR [facility] PRN Reason: Protocol Last Admin: 01/15/17 05:24 Dose: 200 mls/hr Vancomycin HCl (Vancomycin/Ns 1 Gm/250 Ml) 1 gm in 250 mls @ 166.667 mls/hr IV Q12H [facility] [place] Last Admin: 01/15/17 06:00 Dose: 166.667 mls/hr Insulin Aspart (Novolog) 0 units SUB-Q Q8HR [facility] PRN Reason: Protocol Last Admin: 01/15/17 06:24 Dose: 3 units Labetalol HCl (Normodyne) 200 mg PO BID [facility] Last Admin: 01/15/17 10:51 Dose: 200 mg Levothyroxine Sodium (Synthroid) 100 mcg PO DAILY@0600 [facility] [place] Last Admin: 01/15/17 05:24 Dose: 100 mcg Multi-Ingred Cream/Lotion/Oil/Oint (Artificial Tears Ophth Oint) 1 applic OU Q4HR PRN PRN Reason: Dry Eye(s) Simple Syrup (Simple Syrup) 15 ml FEEDTUBE PRN PRN PRN Reason: Hypoglycemia Simple Syrup (Simple Syrup) 30 ml FEEDTUBE PRN PRN PRN Reason: Hypoglycemia Sodium Bicarbonate (Sodium Bicarbonate) 325 mg FEEDTUBE PRN PRN PRN Reason: For Clogged Feeding Tube Sodium Chloride (Nacl 0.9% 500 Ml) 500 ml IV DIRECT [facility] Vancomycin HCl (Vancomycin Pharmacy To Dose) 1 each IV PKCONSULT [facility] PRN Reason: Protocol Exam - Constitutional Vitals: Temp Pulse Resp BP Pulse Ox 99.5 F 71 14 148/69 100 01/15/17 12:00 01/15/17 11:57 01/15/17 11:57 01/15/17 11:57 01/15/17 11:57 Results - Labs CBC & Chem 7: 01/14/17 04:50 01/14/17 04:50 Labs: Abnormal lab results 01/14/17 01/14/17 01/14/17 Range/Units 11:27 14:07 16:52 POC Glucose 147 H 131 H (70-105) Urine WBC (Auto) 53.0 H (0.0-6.0) /HPF 01/15/17 01/15/17 01/15/17 Range/Units 00:04 05:26 11:49 POC Glucose 193 H 215 H 121 H (70-105) Urine WBC (Auto) (0.0-6.0) /HPF
--- NOTE | 2017-01-15 14:23 | Progress Note ---
Assessment and Plan Assessment and plan: 51 YO Male with CKD,HTN, DM presents to ED for evaluation. Pt unable to provide history. Pt history taken from ED staff, and medical records. Pt found down and unresponsive by his neighbor, who subsequently called EMS. Upon arrival, patient found unresponsive on the floor with a serum glucose of 21, and covered with ants with insulin syringes around him and a bottle of atenolol which still had many pills remaining, patient has a known history of alcohol abuse and delirium tremens. The patient was administered D5 approximate 500 mls during transport without change in mental status/level of consciousness. Pt seen and evaluated in ED was was found to be unable to protect his airway. Pt intubated and placed on vent support. 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 Pt treated with supportive care and transferred to ICU. Hypoglycemic brain injury -Continue supportive care Persistent vegetative state Currently comatose, recovery is unlikely Metabolic encephalopathy - CT head negative for any acute events, MRI cannot be done as there is no family to do Pre-MRI screening Hypoglycemia/hypothermia Continue dextrose, tube feeding to be started Acute respiratory failure mechanical ventilator greater than 96 hours - Patient is intubated and on mechanical ventilation Sepsis/UTI IV antibiotics, follow up urine cultures Fever, Tmax 101.2 CXR no infiltrate, UA positve, UCx and Blood cx hyponatremia, resolved with IV hydration Hypothyroidism -Myxedema coma was previously documented in patient's chart. However normal free T4 levels do not support a diagnosis of myxedema coma. The patient has hypothyroidism, continue Synthroid SS unable to locate any family. Patient's prognosis is very poor, he'll most likely benefit from terminal extubation and comfort care versus inpatient hospice placement, pacemaker and so we are still trying to locate a family member. The high probability of a clinically significant, sudden or life threatening deterioration of the [neurologic, respiratory and CV] system(s) required my full and direct attention, intervention and personal management. The aggregate critical care time was [33] minutes. This time is in addition to time spent performing reported procedures but includes the following: [] Data Review and interpretation [] Patient assessment and monitoring of vital signs [] Documentation [] Medication orders and management History Interval history: patient remains comatose, no movement of extremities Hospitalist Physical - Physical exam Narrative exam: General: comatose HEENT: Moist mucous membranes, , no lymphadenopathy Neck: supple Cardiac: S1-S2 heard Lungs: mech ventilated breath sounds Abdomen: soft , nontender, nondistended, bowel sounds positive Extremities: no edema clubbing or cyanosis Skin: no rash or lesions Neurologic: No gag reflex, pupils minimally responsive, no response to deep painful stimuli - Constitutional Vitals: Temp Pulse Resp BP Pulse Ox 99.5 F 68 13 152/66 99 01/15/17 12:00 01/15/17 13:00 01/15/17 13:00 01/15/17 13:00 01/15/17 13:00 Results - Labs CBC & Chem 7: 01/17/17 04:10 01/17/17 04:10 Labs: Laboratory Last Values WBC 6.4 K/mm3 (4.5-11.0) 01/14/17 04:50 RBC 3.32 M/mm3 (3.65-5.03) L 01/14/17 04:50 Hgb 8.5 gm/dl (11.8-15.2) L 01/14/17 04:50 Hct 26.1 % (35.5-45.6) L 01/14/17 04:50 MCV 79 fl (84-94) L 01/14/17 04:50 MCH 26 pg (28-32) L 01/14/17 04:50 MCHC 33 % (32-34) 01/14/17 04:50 RDW 18.2 % (13.2-15.2) H 01/14/17 04:50 Plt Count 343 K/mm3 (140-440) 01/14/17 04:50 Lymph % (Auto) 21.5 % (13.4-35.0) 01/14/17 04:50 [place] % (Auto) 9.0 % (0.0-7.3) H 01/14/17 04:50 Eos % (Auto) 0.6 % (0.0-4.3) 01/14/17 04:50 Baso % (Auto) 0.9 % (0.0-1.8) 01/14/17 04:50 Lymph # 1.4 K/mm3 (1.2-5.4) 01/14/17 04:50 [place] # 0.6 K/mm3 (0.0-0.8) 01/14/17 04:50 Eos # 0.0 K/mm3 (0.0-0.4) 01/14/17 04:50 Baso # 0.1 K/mm3 (0.0-0.1) 01/14/17 04:50 Add Manual Diff Complete 01/10/17 04:30 Total Counted 100 01/10/17 04:30 Seg Neutrophils % 68.0 % (40.0-70.0) 01/14/17 04:50 Seg Neuts % (Manual) 88.0 % (40.0-70.0) H 01/10/17 04:30 Band Neutrophils % 7.0 % 01/10/17 04:30 Lymphocytes % (Manual) 4.0 % (13.4-35.0) L 01/10/17 04:30 Reactive Lymphs % (Man) 0 % 01/10/17 04:30 Monocytes % (Manual) 1.0 % (0.0-7.3) 01/10/17 04:30 Eosinophils % (Manual) 0 % (0.0-4.3) 01/10/17 04:30 Basophils % (Manual) 0 % (0.0-1.8) 01/10/17 04:30 Metamyelocytes % 0 % 01/10/17 04:30 Myelocytes % 0 % 01/10/17 04:30 Promyelocytes % 0 % 01/10/17 04:30 Blast Cells % 0 % 01/10/17 04:30 Nucleated RBC % Not Reportable 01/10/17 04:30 Seg Neutrophils # 4.3 K/mm3 (1.8-7.7) 01/14/17 04:50 Seg Neutrophils # Man 21.2 K/mm3 (1.8-7.7) H 01/10/17 04:30 Band Neutrophils # 1.7 K/mm3 01/10/17 04:30 Lymphocytes # (Manual) 1.0 K/mm3 (1.2-5.4) L 01/10/17 04:30 Abs React Lymphs (Man) 0.0 K/mm3 01/10/17 04:30 Monocytes # (Manual) 0.2 K/mm3 (0.0-0.8) 01/10/17 04:30 Eosinophils # (Manual) 0.0 K/mm3 (0.0-0.4) 01/10/17 04:30 Basophils # (Manual) 0.0 K/mm3 (0.0-0.1) 01/10/17 04:30 Metamyelocytes # 0.0 K/mm3 01/10/17 04:30 Myelocytes # 0.0 K/mm3 01/10/17 04:30 Promyelocytes # 0.0 K/mm3 01/10/17 04:30 Blast Cells # 0.0 K/mm3 01/10/17 04:30 WBC Morphology Not Reportable 01/10/17 04:30 Hypersegmented Neuts Not Reportable 01/10/17 04:30 Hyposegmented Neuts Not Reportable 01/10/17 04:30 Hypogranular Neuts Not Reportable 01/10/17 04:30 Smudge Cells Not Reportable 01/10/17 04:30 Toxic Granulation Not Reportable 01/10/17 04:30 Toxic Vacuolation Not Reportable 01/10/17 04:30 Dohle Bodies Not Reportable 01/10/17 04:30 Pelger-Huet Anomaly Not Reportable 01/10/17 04:30 [place] Rods Not Reportable 01/10/17 04:30 Platelet Estimate Consistent w auto 01/10/17 04:30 Clumped Platelets Not Reportable 01/10/17 04:30 Plt Clumps, EDTA Not Reportable 01/10/17 04:30 Large Platelets Not Reportable 01/10/17 04:30 Giant Platelets Not Reportable 01/10/17 04:30 Platelet Satelliting Not Reportable 01/10/17 04:30 Plt Morphology Comment Not Reportable 01/10/17 04:30 RBC Morphology Not Reportable 01/10/17 04:30 Dimorphic RBCs Not Reportable 01/10/17 04:30 Polychromasia Not Reportable 01/10/17 04:30 Hypochromasia 1+ 01/10/17 04:30 Poikilocytosis Not Reportable 01/10/17 04:30 Anisocytosis Not Reportable 01/10/17 04:30 Microcytosis Not Reportable 01/10/17 04:30 Macrocytosis Not Reportable 01/10/17 04:30 Spherocytes Not Reportable 01/10/17 04:30 Pappenheimer Bodies Not Reportable 01/10/17 04:30 Sickle Cells Not Reportable 01/10/17 04:30 Target Cells Not Reportable 01/10/17 04:30 Tear Drop Cells Not Reportable 01/10/17 04:30 Ovalocytes Not Reportable 01/10/17 04:30 Helmet Cells Not Reportable 01/10/17 04:30 [place] Neck Bodies Not Reportable 01/10/17 04:30 [place] Rings Not Reportable 01/10/17 04:30 [place] Cells Not Reportable 01/10/17 04:30 Bite Cells Not Reportable 01/10/17 04:30 Crenated Cell Not Reportable 01/10/17 04:30 Elliptocytes Not Reportable 01/10/17 04:30 Acanthocytes (Spur) Not Reportable 01/10/17 04:30 Rouleaux Not Reportable 01/10/17 04:30 Hemoglobin C Crystals Not Reportable 01/10/17 04:30 Schistocytes Not Reportable 01/10/17 04:30 Malaria parasites Not Reportable 01/10/17 04:30 [place] Bodies Not Reportable 01/10/17 04:30 Hem Pathologist Commnt No 01/10/17 04:30 PT 14.4 Sec. (12.2-14.9) 01/09/17 10:16 INR 1.07 (0.87-1.13) 01/09/17 10:16 APTT 39.6 Sec. (24.2-36.6) H 01/09/17 10:16 POC ABG pH 7.485 (7.35-7.45) H 01/13/17 04:26 POC ABG pCO2 25.4 (35-45) L 01/13/17 04:26 POC ABG pO2 73 (80-105) L 01/13/17 04:26 POC ABG HCO3 19.1 01/13/17 04:26 POC ABG Total CO2 20 01/13/17 04:26 POC ABG O2 Sat 96 01/13/17 04:26 POC ABG Base Excess -4 01/13/17 04:26 VBG pH 7.284 (7.320-7.420) L 01/09/17 10:16 FiO2 30 % 01/13/17 04:26 Sodium 145 mmol/L (137-145) 01/14/17 04:50 Potassium 3.6 mmol/L (3.6-5.0) 01/14/17 04:50 Chloride 112.5 mmol/L (98-107) H 01/14/17 04:50 Carbon Dioxide 22 mmol/L (22-30) 01/14/17 04:50 Anion Gap 14 mmol/L 01/14/17 04:50 BUN 10 mg/dL (9-20) 01/14/17 04:50 Creatinine 0.9 mg/dL (0.8-1.5) 01/14/17 04:50 Estimated GFR > 60 ml/min 01/14/17 04:50 BUN/Creatinine Ratio 11 % 01/14/17 04:50 Glucose 149 mg/dL (75-100) H 01/14/17 04:50 POC Glucose 121 (70-105) H 01/15/17 11:49 Lactic Acid 1.00 mmol/L (0.7-2.0) 01/09/17 10:16 Calcium 8.1 mg/dL (8.4-10.2) L 01/14/17 04:50 Magnesium 2.10 mg/dL (1.7-2.3) 01/09/17 10:16 Total Bilirubin 0.30 mg/dL (0.1-1.2) 01/09/17 10:16 AST 25 units/L (5-40) 01/09/17 10:16 ALT 17 units/L (7-56) 01/09/17 10:16 Alkaline Phosphatase 151 units/L (35-129) H 01/09/17 10:16 Ammonia 35.0 umol/L (25-60) 01/09/17 10:16 Total Creatine Kinase 135 units/L (55-170) 01/09/17 10:16 CK-MB (CK-2) 7.1 ng/mL (0.0-4.0) H 01/09/17 10:16 CK-MB (CK-2) Rel Index 5.2 (0-4) H 01/09/17 10:16 Troponin T < 0.010 ng/mL (0.00-0.029) 01/09/17 10:16 NT-Pro-B Natriuret Pep 602.9 pg/mL (0-900) 01/09/17 10:16 Total Protein 8.2 g/dL (6.3-8.2) 01/09/17 10:16 Albumin 3.3 g/dL (3.9-5) L 01/09/17 10:16 Albumin/Globulin Ratio 0.7 % 01/09/17 10:16 TSH 52.800 mlU/mL (0.270-4.200) H 01/09/17 10:16 Free T4 0.78 ng/dL (0.76-1.46) 01/09/17 10:16 Total Cortisol 54.8 mcg/dL () 01/09/17 16:19 Urine Color Yellow (Yellow) 01/14/17 14:07 Urine Turbidity Clear (Clear) 01/14/17 14:07 Urine pH 5.0 (5.0-7.0) 01/14/17 14:07 Ur Specific [place] 1.011 (1.003-1.030) 01/14/17 14:07 Urine Protein <15 mg/dl mg/dL (Negative) 01/14/17 14:07 Urine Glucose (UA) Neg mg/dL (Negative) 01/14/17 14:07 Urine Ketones Neg mg/dL (Negative) 01/14/17 14:07 Urine Blood Sm (Negative) 01/14/17 14:07 Urine Nitrite Neg (Negative) 01/14/17 14:07 Urine Bilirubin Neg (Negative) 01/14/17 14:07 Urine Urobilinogen < 2.0 mg/dL (<2.0) 01/14/17 14:07 Ur Leukocyte Esterase Lg (Negative) 01/14/17 14:07 Urine WBC (Auto) 53.0 /HPF (0.0-6.0) H 01/14/17 14:07 Urine RBC (Auto) 12.0 /HPF (0.0-6.0) 01/14/17 14:07 Urine Bacteria (Auto) 1+ /HPF (Negative) 01/09/17 10:23 Urine Mucus Few /HPF 01/14/17 14:07 Urine Yeast (Budding) 3+ /HPF 01/14/17 14:07 Salicylates < 0.3 mg/dL (2.8-20.0) L 01/09/17 10:16 Urine Opiates Screen Presumptive negative 01/09/17 10:23 Urine Methadone Screen Presumptive negative 01/09/17 10:23 Acetaminophen < 15.0 ug/mL (10.0-30.0) 01/09/17 10:16 Ur Barbiturates Screen Presumptive negative 01/09/17 10:23 Ur Phencyclidine Scrn Presumptive negative 01/09/17 10:23 Ur Amphetamines Screen Presumptive negative 01/09/17 10:23 U Benzodiazepines Scrn Presumptive negative 01/09/17 10:23 Urine Cocaine Screen Presumptive negative 01/09/17 10:23 U Marijuana (THC) Screen Presumptive negative 01/09/17 10:23 Drugs of Abuse Note Disclamer 01/09/17 10:23 Plasma/Serum Alcohol < 0.01 gm% (0-0.07) 01/09/17 10:16
[2017-01-15] MEDS: APRESOLINE IV PRN (15:43)
[2017-01-15] MEDS: ROCEPHIN/NS 1 GM/50 ML 1 GM/50 ML BAG IV SCH (23:08)
[2017-01-16] MEDS: D5NS 1,000 ML IV SCH (01:58)
[2017-01-16] MEDS: APRESOLINE IV PRN ×2 (04:00→22:10)
[2017-01-16 06:14] LABS: ABG HCO3 19.4 mmol/L (20.0-26.0); ABG Methemoglobin 0.3 % (0.0-1.5); ABG Oxygen Saturation 96.9 % (95.0-99.0); ABG PH 7.457 pH Units (7.350-7.450); ABG PO2 55.1 mm Hg (80.0-90.0)
[2017-01-16] MEDS: NOVOLOG SUB-Q SCH ×4 (06:27→22:06)
[2017-01-16] MEDS: ZOSYN/NS 4.5GM/100ML 4.5 GM/100 ML VIAL IV SCH ×3 (06:29→21:56)
[2017-01-16] MEDS: SYNTHROID PO SCH (06:31)
[2017-01-16] MEDS: VANCOMYCIN/NS 1 GM/250 ML 1 GM/250 ML BAG IV SCH ×2 (07:04→21:03)
--- NOTE | 2017-01-16 09:29 | XRay Report ---
AP CHEST: HISTORY: Followup respiratory failure Partial atelectasis has developed in the left lower lobe since yesterday's exam. The remainder of the lungs are clear. Heart and mediastinal structures remain within normal limits. Borderline pulmonary venous structures. Lines and support devices remain in good position.
--- NOTE | 2017-01-16 10:25 | Progress Note ---
Assessment and Plan Assessment and plan: 51 YO Male with CKD,HTN, DM presents to ED for evaluation. Pt unable to provide history. Pt history taken from ED staff, and medical records. Pt found down and unresponsive by his neighbor, who subsequently called EMS. Upon arrival, patient found unresponsive on the floor with a serum glucose of 21, and covered with ants with insulin syringes around him and a bottle of atenolol which still had many pills remaining, patient has a known history of alcohol abuse and delirium tremens. The patient was administered D5 approximate 500 mls during transport without change in mental status/level of consciousness. Pt seen and evaluated in ED was was found to be unable to protect his airway. Pt intubated and placed on vent support. 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 Pt treated with supportive care and transferred to ICU. Hypoglycemic brain injury -Continue supportive care Persistent vegetative state Currently comatose, recovery is unlikely in grade IV coma obtain NM brain flow study Metabolic encephalopathy - CT head negative for any acute events, repeat CT is unchanged, MRI cannot be done as there is no family to do Pre-MRI screening Hypoglycemia/hypothermia Continue dextrose, tube feeding to be started Acute respiratory failure mechanical ventilator greater than 96 hours - Patient is intubated and on mechanical ventilation Sepsis ruled out, UTI ruled out cxr, urine and blood cx negative -Fevers most likely due to brain injury, unable to central moderate body temp hyponatremia, resolved with IV hydration Hypothyroidism -Myxedema coma was previously documented in patient's chart. However normal free T4 levels do not support a diagnosis of myxedema coma. The patient has hypothyroidism, continue Synthroid SS unable to locate any family. Patient's prognosis is very poor, he'll most likely benefit from terminal extubation and comfort care versus inpatient hospice placement, pacemaker and so we are still trying to locate a family member. The high probability of a clinically significant, sudden or life threatening deterioration of the [neurologic, respiratory and CV] system(s) required my full and direct attention, intervention and personal management. The aggregate critical care time was [33] minutes. This time is in addition to time spent performing reported procedures but includes the following: [] Data Review and interpretation [] Patient assessment and monitoring of vital signs [] Documentation [] Medication orders and management History Interval history: patient remains comatose, no movement of extremities Hospitalist Physical - Physical exam Narrative exam: General: comatose HEENT: Moist mucous membranes, , no lymphadenopathy Neck: supple Cardiac: S1-S2 heard Lungs: mech ventilated breath sounds Abdomen: soft , nontender, nondistended, bowel sounds positive Extremities: no edema clubbing or cyanosis Skin: no rash or lesions Neurologic: No gag reflex, pupils minimally responsive, no response to deep painful stimuli - Constitutional Vitals: Temp Pulse Resp BP Pulse Ox 98.1 F 61 13 136/66 100 01/16/17 08:00 01/16/17 10:10 01/16/17 10:10 01/16/17 10:10 01/16/17 10:10 Results - Labs CBC & Chem 7: 01/17/17 04:10 01/17/17 04:10 Labs: Laboratory Last Values WBC 6.4 K/mm3 (4.5-11.0) 01/14/17 04:50 RBC 3.32 M/mm3 (3.65-5.03) L 01/14/17 04:50 Hgb 8.5 gm/dl (11.8-15.2) L 01/14/17 04:50 Hct 26.1 % (35.5-45.6) L 01/14/17 04:50 MCV 79 fl (84-94) L 01/14/17 04:50 MCH 26 pg (28-32) L 01/14/17 04:50 MCHC 33 % (32-34) 01/14/17 04:50 RDW 18.2 % (13.2-15.2) H 01/14/17 04:50 Plt Count 343 K/mm3 (140-440) 01/14/17 04:50 Lymph % (Auto) 21.5 % (13.4-35.0) 01/14/17 04:50 [place] % (Auto) 9.0 % (0.0-7.3) H 01/14/17 04:50 Eos % (Auto) 0.6 % (0.0-4.3) 01/14/17 04:50 Baso % (Auto) 0.9 % (0.0-1.8) 01/14/17 04:50 Lymph # 1.4 K/mm3 (1.2-5.4) 01/14/17 04:50 [place] # 0.6 K/mm3 (0.0-0.8) 01/14/17 04:50 Eos # 0.0 K/mm3 (0.0-0.4) 01/14/17 04:50 Baso # 0.1 K/mm3 (0.0-0.1) 01/14/17 04:50 Add Manual Diff Complete 01/10/17 04:30 Total Counted 100 01/10/17 04:30 Seg Neutrophils % 68.0 % (40.0-70.0) 01/14/17 04:50 Seg Neuts % (Manual) 88.0 % (40.0-70.0) H 01/10/17 04:30 Band Neutrophils % 7.0 % 01/10/17 04:30 Lymphocytes % (Manual) 4.0 % (13.4-35.0) L 01/10/17 04:30 Reactive Lymphs % (Man) 0 % 01/10/17 04:30 Monocytes % (Manual) 1.0 % (0.0-7.3) 01/10/17 04:30 Eosinophils % (Manual) 0 % (0.0-4.3) 01/10/17 04:30 Basophils % (Manual) 0 % (0.0-1.8) 01/10/17 04:30 Metamyelocytes % 0 % 01/10/17 04:30 Myelocytes % 0 % 01/10/17 04:30 Promyelocytes % 0 % 01/10/17 04:30 Blast Cells % 0 % 01/10/17 04:30 Nucleated RBC % Not Reportable 01/10/17 04:30 Seg Neutrophils # 4.3 K/mm3 (1.8-7.7) 01/14/17 04:50 Seg Neutrophils # Man 21.2 K/mm3 (1.8-7.7) H 01/10/17 04:30 Band Neutrophils # 1.7 K/mm3 01/10/17 04:30 Lymphocytes # (Manual) 1.0 K/mm3 (1.2-5.4) L 01/10/17 04:30 Abs React Lymphs (Man) 0.0 K/mm3 01/10/17 04:30 Monocytes # (Manual) 0.2 K/mm3 (0.0-0.8) 01/10/17 04:30 Eosinophils # (Manual) 0.0 K/mm3 (0.0-0.4) 01/10/17 04:30 Basophils # (Manual) 0.0 K/mm3 (0.0-0.1) 01/10/17 04:30 Metamyelocytes # 0.0 K/mm3 01/10/17 04:30 Myelocytes # 0.0 K/mm3 01/10/17 04:30 Promyelocytes # 0.0 K/mm3 01/10/17 04:30 Blast Cells # 0.0 K/mm3 01/10/17 04:30 WBC Morphology Not Reportable 01/10/17 04:30 Hypersegmented Neuts Not Reportable 01/10/17 04:30 Hyposegmented Neuts Not Reportable 01/10/17 04:30 Hypogranular Neuts Not Reportable 01/10/17 04:30 Smudge Cells Not Reportable 01/10/17 04:30 Toxic Granulation Not Reportable 01/10/17 04:30 Toxic Vacuolation Not Reportable 01/10/17 04:30 Dohle Bodies Not Reportable 01/10/17 04:30 Pelger-Huet Anomaly Not Reportable 01/10/17 04:30 [place] Rods Not Reportable 01/10/17 04:30 Platelet Estimate Consistent w auto 01/10/17 04:30 Clumped Platelets Not Reportable 01/10/17 04:30 Plt Clumps, EDTA Not Reportable 01/10/17 04:30 Large Platelets Not Reportable 01/10/17 04:30 Giant Platelets Not Reportable 01/10/17 04:30 Platelet Satelliting Not Reportable 01/10/17 04:30 Plt Morphology Comment Not Reportable 01/10/17 04:30 RBC Morphology Not Reportable 01/10/17 04:30 Dimorphic RBCs Not Reportable 01/10/17 04:30 Polychromasia Not Reportable 01/10/17 04:30 Hypochromasia 1+ 01/10/17 04:30 Poikilocytosis Not Reportable 01/10/17 04:30 Anisocytosis Not Reportable 01/10/17 04:30 Microcytosis Not Reportable 01/10/17 04:30 Macrocytosis Not Reportable 01/10/17 04:30 Spherocytes Not Reportable 01/10/17 04:30 Pappenheimer Bodies Not Reportable 01/10/17 04:30 Sickle Cells Not Reportable 01/10/17 04:30 Target Cells Not Reportable 01/10/17 04:30 Tear Drop Cells Not Reportable 01/10/17 04:30 Ovalocytes Not Reportable 01/10/17 04:30 Helmet Cells Not Reportable 01/10/17 04:30 [place] Bodies Not Reportable 01/10/17 04:30 [place] Rings Not Reportable 01/10/17 04:30 [place] Cells Not Reportable 01/10/17 04:30 Bite Cells Not Reportable 01/10/17 04:30 Crenated Cell Not Reportable 01/10/17 04:30 Elliptocytes Not Reportable 01/10/17 04:30 Acanthocytes (Spur) Not Reportable 01/10/17 04:30 Rouleaux Not Reportable 01/10/17 04:30 Hemoglobin C Crystals Not Reportable 01/10/17 04:30 Schistocytes Not Reportable 01/10/17 04:30 Malaria parasites Not Reportable 01/10/17 04:30 [place] Bodies Not Reportable 01/10/17 04:30 Hem Pathologist Commnt No 01/10/17 04:30 PT 14.4 Sec. (12.2-14.9) 01/09/17 10:16 INR 1.07 (0.87-1.13) 01/09/17 10:16 APTT 39.6 Sec. (24.2-36.6) H 01/09/17 10:16 POC ABG pH 7.485 (7.35-7.45) H 01/13/17 04:26 ABG pH 7.457 pH Units (7.350-7.450) H 01/16/17 04:30 POC ABG pCO2 25.4 (35-45) L 01/13/17 04:26 ABG pCO2 28.0 mm Hg 01/16/17 04:30 POC ABG pO2 73 (80-105) L 01/13/17 04:26 ABG pO2 55.1 mm Hg (80.0-90.0) L 01/16/17 04:30 POC ABG HCO3 19.1 01/13/17 04:26 ABG HCO3 19.4 mmol/L (20.0-26.0) L 01/16/17 04:30 POC ABG Total CO2 20 01/13/17 04:26 POC ABG O2 Sat 96 01/13/17 04:26 ABG O2 Saturation 96.9 % (95.0-99.0) 01/16/17 04:30 ABG O2 Content 9.1 (0.0-44) 01/16/17 04:30 POC ABG Base Excess -4 01/13/17 04:26 ABG Base Excess -4.0 mmol/L (-2.0-3.0) L 01/16/17 04:30 ABG Hemoglobin 6.8 gm/dl (14.0-18.0) L 01/16/17 04:30 ABG Carboxyhemoglobin 1.7 % (0.0-5.0) 01/16/17 04:30 ABG Methemoglobin 0.3 % (0.0-1.5) 01/16/17 04:30 VBG pH 7.284 (7.320-7.420) L 01/09/17 10:16 Oxyhemoglobin 94.9 % (95.0-99.0) L 01/16/17 04:30 FiO2 30 % 01/16/17 04:30 Sodium 145 mmol/L (137-145) 01/14/17 04:50 Potassium 3.6 mmol/L (3.6-5.0) 01/14/17 04:50 Chloride 112.5 mmol/L (98-107) H 01/14/17 04:50 Carbon Dioxide 22 mmol/L (22-30) 01/14/17 04:50 Anion Gap 14 mmol/L 01/14/17 04:50 BUN 10 mg/dL (9-20) 01/14/17 04:50 Creatinine 0.9 mg/dL (0.8-1.5) 01/14/17 04:50 Estimated GFR > 60 ml/min 01/14/17 04:50 BUN/Creatinine Ratio 11 % 01/14/17 04:50 Glucose 149 mg/dL (75-100) H 01/14/17 04:50 POC Glucose 271 (70-105) H 01/16/17 05:28 Lactic Acid 1.00 mmol/L (0.7-2.0) 01/09/17 10:16 Calcium 8.1 mg/dL (8.4-10.2) L 01/14/17 04:50 Magnesium 2.10 mg/dL (1.7-2.3) 01/09/17 10:16 Total Bilirubin 0.30 mg/dL (0.1-1.2) 01/09/17 10:16 AST 25 units/L (5-40) 01/09/17 10:16 ALT 17 units/L (7-56) 01/09/17 10:16 Alkaline Phosphatase 151 units/L (35-129) H 01/09/17 10:16 Ammonia 35.0 umol/L (25-60) 01/09/17 10:16 Total Creatine Kinase 135 units/L (55-170) 01/09/17 10:16 CK-MB (CK-2) 7.1 ng/mL (0.0-4.0) H 01/09/17 10:16 CK-MB (CK-2) Rel Index 5.2 (0-4) H 01/09/17 10:16 Troponin T < 0.010 ng/mL (0.00-0.029) 01/09/17 10:16 NT-Pro-B Natriuret Pep 602.9 pg/mL (0-900) 01/09/17 10:16 Total Protein 8.2 g/dL (6.3-8.2) 01/09/17 10:16 Albumin 3.3 g/dL (3.9-5) L 01/09/17 10:16 Albumin/Globulin Ratio 0.7 % 01/09/17 10:16 TSH 52.800 mlU/mL (0.270-4.200) H 01/09/17 10:16 Free T4 0.78 ng/dL (0.76-1.46) 01/09/17 10:16 Total Cortisol 54.8 mcg/dL () 01/09/17 16:19 Urine Color Yellow (Yellow) 01/14/17 14:07 Urine Turbidity Clear (Clear) 01/14/17 14:07 Urine pH 5.0 (5.0-7.0) 01/14/17 14:07 Ur Specific [place] 1.011 (1.003-1.030) 01/14/17 14:07 Urine Protein <15 mg/dl mg/dL (Negative) 01/14/17 14:07 Urine Glucose (UA) Neg mg/dL (Negative) 01/14/17 14:07 Urine Ketones Neg mg/dL (Negative) 01/14/17 14:07 Urine Blood Sm (Negative) 01/14/17 14:07 Urine Nitrite Neg (Negative) 01/14/17 14:07 Urine Bilirubin Neg (Negative) 01/14/17 14:07 Urine Urobilinogen < 2.0 mg/dL (<2.0) 01/14/17 14:07 Ur Leukocyte Esterase Lg (Negative) 01/14/17 14:07 Urine WBC (Auto) 53.0 /HPF (0.0-6.0) H 01/14/17 14:07 Urine RBC (Auto) 12.0 /HPF (0.0-6.0) 01/14/17 14:07 Urine Bacteria (Auto) 1+ /HPF (Negative) 01/09/17 10:23 Urine Mucus Few /HPF 01/14/17 14:07 Urine Yeast (Budding) 3+ /HPF 01/14/17 14:07 Salicylates < 0.3 mg/dL (2.8-20.0) L 01/09/17 10:16 Urine Opiates Screen Presumptive negative 01/09/17 10:23 Urine Methadone Screen Presumptive negative 01/09/17 10:23 Acetaminophen < 15.0 ug/mL (10.0-30.0) 01/09/17 10:16 Ur Barbiturates Screen Presumptive negative 01/09/17 10:23 Ur Phencyclidine Scrn Presumptive negative 01/09/17 10:23 Ur Amphetamines Screen Presumptive negative 01/09/17 10:23 U Benzodiazepines Scrn Presumptive negative 01/09/17 10:23 Urine Cocaine Screen Presumptive negative 01/09/17 10:23 U Marijuana (THC) Screen Presumptive negative 01/09/17 10:23 Drugs of Abuse Note Disclamer 01/09/17 10:23 Plasma/Serum Alcohol < 0.01 gm% (0-0.07) 01/09/17 10:16
[2017-01-16] MEDS: NORMODYNE PO SCH ×2 (10:29→22:05)
[2017-01-16] MEDS: PEPCID IV SCH ×2 (10:30→22:07)
[2017-01-16] MEDS: HEPARIN SUB-Q SCH ×2 (10:30→22:04)
--- NOTE | 2017-01-16 10:49 | Progress Note ---
Assessment and Plan Acute respiratory failure, hypoxia Hypoglycemia/hypothermia -> suspect due to too much insulin Metabolic encephalopathy. No signs of recovery at this point, per neurology Hypothyroidism; doubt myxedema coma with normal free T4 Pneumonia,LLL?-aspiration?.See CXR UTI/SIRS Recommendations Maintain off sedation Continue antibiotics and de-escalate as tolerated. DC Rocephin,give 7 days zosyn. Cultures negative Continue with spontaneous breathing trials, as tolerated Brain MRI Consider tracheotomy in order to complete weaning, in order to complete weaning from ventilator support. No improvement neurological status. GI/DVT PPx Tube feeding nutrition Guarded to poor prognosis; complex patient Critical care time with a 31 minutes of [id number] evaluation and coordination of care Subjective Date of service: 01/16/17 Principal diagnosis: Acute respiratory failure Interval history: intubated Objective Vital Signs - 12hr 01/15/17 01/15/17 01/15/17 22:50 23:00 23:10 Temperature Pulse Rate 67 66 65 Respiratory 14 15 15 Rate Blood Pressure 169/73 133/67 133/67 O2 Sat by Pulse 100 100 100 Oximetry 01/15/17 01/15/17 01/15/17 23:20 23:30 23:32 Temperature Pulse Rate 65 65 65 Respiratory 14 14 13 Rate Blood Pressure 133/67 133/67 133/67 O2 Sat by Pulse 100 100 100 Oximetry 01/15/17 01/15/17 01/16/17 23:40 23:50 00:00 Temperature 99.0 F Pulse Rate 65 65 65 Respiratory 17 15 15 Rate Blood Pressure 133/67 133/67 139/63 O2 Sat by Pulse 100 100 99 Oximetry 01/16/17 01/16/17 01/16/17 00:10 00:20 00:30 Temperature Pulse Rate 67 67 64 Respiratory 18 16 15 Rate Blood Pressure 139/63 139/63 139/63 O2 Sat by Pulse 100 100 100 Oximetry 01/16/17 01/16/17 01/16/17 00:35 00:40 00:50 Temperature Pulse Rate 64 66 65 Respiratory 14 14 Rate Blood Pressure 139/63 139/63 139/63 O2 Sat by Pulse 100 100 100 Oximetry 01/16/17 01/16/17 01/16/17 01:00 01:10 01:20 Temperature Pulse Rate 65 64 64 Respiratory 17 13 15 Rate Blood Pressure 149/67 149/67 149/67 O2 Sat by Pulse 100 100 100 Oximetry 01/16/17 01/16/17 01/16/17 01:30 01:40 01:50 Temperature Pulse Rate 63 65 65 Respiratory 13 14 13 Rate Blood Pressure 149/67 149/67 149/67 O2 Sat by Pulse 100 100 100 Oximetry 01/16/17 01/16/17 01/16/17 02:00 02:10 02:20 Temperature Pulse Rate 64 65 66 Respiratory 14 14 13 Rate Blood Pressure 159/63 149/67 149/67 O2 Sat by Pulse 100 100 100 Oximetry 01/16/17 01/16/17 01/16/17 02:30 02:40 02:50 Temperature Pulse Rate 66 65 64 Respiratory 16 18 16 Rate Blood Pressure 149/67 149/67 149/67 O2 Sat by Pulse 100 100 100 Oximetry 01/16/17 01/16/17 01/16/17 03:00 03:10 03:20 Temperature Pulse Rate 64 70 Respiratory 15 18 Rate Blood Pressure 167/74 167/74 167/74 O2 Sat by Pulse 100 100 Oximetry 01/16/17 01/16/17 01/16/17 03:30 03:40 03:50 Temperature Pulse Rate 66 64 64 Respiratory 12 16 12 Rate Blood Pressure 167/74 167/74 167/74 O2 Sat by Pulse 100 100 100 Oximetry 01/16/17 01/16/17 01/16/17 03:52 04:00 04:10 Temperature 99.1 F Pulse Rate 64 65 Respiratory 15 14 Rate Blood Pressure 177/70 167/74 O2 Sat by Pulse 99 100 Oximetry 01/16/17 01/16/17 01/16/17 04:17 04:20 04:30 Temperature Pulse Rate 65 65 65 Respiratory 15 14 Rate Blood Pressure 177/70 167/74 167/74 O2 Sat by Pulse 100 100 99 Oximetry 01/16/17 01/16/17 01/16/17 04:40 04:50 05:00 Temperature Pulse Rate 65 64 63 Respiratory 14 13 13 Rate Blood Pressure 167/74 167/74 161/70 O2 Sat by Pulse Oximetry 01/16/17 01/16/17 01/16/17 05:10 05:20 05:30 Temperature Pulse Rate 64 67 68 Respiratory 12 15 13 Rate Blood Pressure 161/70 161/70 161/70 O2 Sat by Pulse Oximetry 01/16/17 01/16/1701/16/17 05:40 05:50 06:00 Temperature Pulse Rate 68 68 67 Respiratory 9 L 13 13 Rate Blood Pressure 161/70 161/70 113/55 O2 Sat by Pulse Oximetry 01/16/17 01/16/17 01/16/17 06:10 06:20 06:30 Temperature Pulse Rate 68 68 68 Respiratory 13 14 12 Rate Blood Pressure 113/55 113/55 113/55 O2 Sat by Pulse 100 Oximetry 01/16/17 01/16/17 01/16/17 06:40 06:50 07:00 Temperature Pulse Rate 67 65 65 Respiratory 13 12 13 Rate Blood Pressure 113/55 113/55 125/63 O2 Sat by Pulse 100 100 100 Oximetry 01/16/17 01/16/17 01/16/17 07:10 07:20 07:30 Temperature Pulse Rate 64 63 65 Respiratory 11 L 12 12 Rate Blood Pressure 125/63 125/63 125/63 O2 Sat by Pulse 100 100 100 Oximetry 01/16/17 01/16/17 01/16/17 07:40 07:50 08:00 Temperature 98.1 F Pulse Rate 63 64 67 Respiratory 12 12 11 L Rate Blood Pressure 125/63 125/63 122/66 O2 Sat by Pulse 100 100 100 Oximetry 01/16/17 01/16/17 01/16/17 08:10 08:20 08:30 Temperature Pulse Rate 66 64 66 Respiratory 16 12 13 Rate Blood Pressure 122/66 122/66 122/66 O2 Sat by Pulse 100 100 100 Oximetry 01/16/17 01/16/17 01/16/17 08:40 08:48 08:50 Temperature Pulse Rate 65 65 64 Respiratory 14 15 12 Rate Blood Pressure 122/66 122/66 122/66 O2 Sat by Pulse 100 100 100 Oximetry 01/16/17 01/16/17 01/16/17 09:00 09:10 09:20 Temperature Pulse Rate 64 62 63 Respiratory 14 13 14 Rate Blood Pressure 129/67 129/67 129/67 O2 Sat by Pulse 100 100 100 Oximetry 01/16/17 01/16/17 01/16/17 09:30 09:40 09:50 Temperature Pulse Rate 63 63 63 Respiratory 12 8 L 13 Rate Blood Pressure 129/67 129/67 129/67 O2 Sat by Pulse 100 100 100 Oximetry 01/16/17 01/16/17 01/16/17 10:00 10:05 10:10 Temperature Pulse Rate 63 61 Respiratory 14 15 13 Rate Blood Pressure 136/66 136/66 O2 Sat by Pulse 100 100 100 Oximetry 01/16/17 10:29 Temperature Pulse Rate 62 Respiratory Rate Blood Pressure 136/66 O2 Sat by Pulse Oximetry Constitutional: no acute distress, lethargic, other (intubated, on vent) Eyes: non-icteric ENT: oropharynx moist Neck: supple, no JVD Effort: normal Ascultation: Bilateral: clear, diminished breath sounds Cardiovascular: regular rate and rhythm Gastrointestinal: normoactive bowel sounds, soft, non-tender, non-distended Integumentary: rash (lesions all over trunk/extremities (most appear to be scabs )) Extremities: no cyanosis, no edema, pink and warm Neurologic: non-focal exam, pupils equal and round, other (unresponsive, GCS 3) Psychiatric: other (unable to obtain) CBC and BMP: 01/14/17 04:50 01/14/17 04:50 ABG, PT/INR, D-dimer: ABG POC ABG pH 7.485 (7.35-7.45) H 01/13/17 04:26 ABG pH 7.457 pH Units (7.350-7.450) H 01/16/17 04:30 POC ABG pCO2 25.4 (35-45) L 01/13/17 04:26 ABG pCO2 28.0 mm Hg 01/16/17 04:30 POC ABG pO2 73 (80-105) L 01/13/17 04:26 ABG pO2 55.1 mm Hg (80.0-90.0) L 01/16/17 04:30 POC ABG HCO3 19.1 01/13/17 04:26 POC ABG Total CO2 20 01/13/17 04:26 POC ABG O2 Sat 96 01/13/17 04:26 ABG O2 Saturation 96.9 % (95.0-99.0) 01/16/17 04:30 PT/INR, D-dimer PT 14.4 Sec. (12.2-14.9) 01/09/17 10:16 INR 1.07 (0.87-1.13) 01/09/17 10:16 Abnormal lab findings: Abnormal Labs 1001/09/17 01/09/17 12:49 13:13 14:21 WBC RBC Hgb Hct MCV MCH RDW Plt Count Lymph % (Auto) [place] % (Auto) Seg Neutrophils % Seg Neuts % (Manual) Lymphocytes % (Manual) Seg Neutrophils # Seg Neutrophils # Man Lymphocytes # (Manual) POC ABG pH ABG pH POC ABG pCO2 POC ABG pO2 ABG pO2 ABG HCO3 ABG Base Excess ABG Hemoglobin Oxyhemoglobin Potassium Chloride Carbon Dioxide BUN Glucose POC Glucose < 40 L 128 H 65 L Calcium Urine WBC (Auto) 01/09/17 01/09/17 01/09/17 15:09 16:28 17:14 WBC RBC Hgb Hct MCV MCH RDW Plt Count Lymph % (Auto) [place] % (Auto) Seg Neutrophils % Seg Neuts % (Manual) Lymphocytes % (Manual) Seg Neutrophils # Seg Neutrophils # Man Lymphocytes # (Manual) POC ABG pH ABG pH POC ABG pCO2 POC ABG pO2 ABG pO2 ABG HCO3 ABG Base Excess ABG Hemoglobin Oxyhemoglobin Potassium Chloride Carbon Dioxide BUN Glucose POC Glucose 120 H 44 L 112 H Calcium Urine WBC (Auto) 01/10/17 01/10/17 01/10/17 04:30 04:30 05:41 WBC 24.1 H RBC 3.38 L Hgb 8.5 L Hct 26.0 L MCV 77 L MCH 25 L RDW 17.9 H Plt Count 474 H Lymph % (Auto) [place] % (Auto) Seg Neutrophils % Seg Neuts % (Manual) 88.0 H Lymphocytes % (Manual) 4.0 L Seg Neutrophils # Seg Neutrophils # Man 21.2 H Lymphocytes # (Manual) 1.0 L POC ABG pH ABG pH POC ABG pCO2 POC ABG pO2 ABG pO2 ABG HCO3 ABG Base Excess ABG Hemoglobin Oxyhemoglobin Potassium Chloride Carbon Dioxide 17 L BUN 27 H Glucose POC Glucose 68 L Calcium 7.5 L Urine WBC (Auto) 01/10/17 01/10/17 01/10/17 05:45 07:47 10:50 WBC RBC Hgb Hct MCV MCH RDW Plt Count Lymph % (Auto) [place] % (Auto) Seg Neutrophils % Seg Neuts % (Manual) Lymphocytes % (Manual) Seg Neutrophils # Seg Neutrophils # Man Lymphocytes # (Manual) POC ABG pH ABG pH POC ABG pCO2 26.6 L POC ABG pO2 207 H ABG pO2 ABG HCO3 ABG Base Excess ABG Hemoglobin Oxyhemoglobin Potassium Chloride Carbon Dioxide BUN Glucose POC Glucose 148 H 165 H Calcium Urine WBC (Auto) 01/10/17 01/10/17 01/10/17 13:41 20:20 21:39 WBC RBC Hgb Hct MCV MCH RDW Plt Count Lymph % (Auto) [place] % (Auto) Seg Neutrophils % Seg Neuts % (Manual) Lymphocytes % (Manual) Seg Neutrophils # Seg Neutrophils # Man Lymphocytes # (Manual) POC ABG pH ABG pH POC ABG pCO2 POC ABG pO2 ABG pO2 ABG HCO3 ABG Base Excess ABG Hemoglobin Oxyhemoglobin Potassium Chloride Carbon Dioxide BUN Glucose POC Glucose 114 H 150 H 175 H Calcium Urine WBC (Auto) 01/10/17 01/11/17 01/11/17 23:24 00:19 04:06 WBC RBC Hgb Hct MCV MCH RDW Plt Count Lymph % (Auto) [place] % (Auto) Seg Neutrophils % Seg Neuts % (Manual) Lymphocytes % (Manual) Seg Neutrophils # Seg Neutrophils # Man Lymphocytes # (Manual) POC ABG pH 7.463 H ABG pH POC ABG pCO2 26.2 L POC ABG pO2 185 H ABG pO2 ABG HCO3 ABG Base Excess ABG Hemoglobin Oxyhemoglobin Potassium Chloride Carbon Dioxide BUN Glucose POC Glucose 155 H 163 H Calcium Urine WBC (Auto) 01/11/17 01/11/17 01/11/17 05:20 05:20 06:21 WBC 15.2 H RBC 3.40 L Hgb 8.9 L Hct 26.3 L MCV 78 L MCH 26 L RDW 18.6 H Plt Count 462 H Lymph % (Auto) 13.2 L [place] % (Auto) Seg Neutrophils % 80.8 H Seg Neuts % (Manual) Lymphocytes % (Manual) Seg Neutrophils # 12.3 H Seg Neutrophils # Man Lymphocytes # (Manual) POC ABG pH ABG pH POC ABG pCO2 POC ABG pO2 ABG pO2 ABG HCO3 ABG Base Excess ABG Hemoglobin Oxyhemoglobin Potassium 3.4 L Chloride 111.5 H Carbon Dioxide 17 L BUN Glucose 147 H POC Glucose 139 H Calcium 8.0 L Urine WBC (Auto) 01/11/17 01/11/17 01/11/17 07:57 11:46 16:50 WBC RBC Hgb Hct MCV MCH RDW Plt Count Lymph % (Auto) [place] % (Auto) Seg Neutrophils % Seg Neuts % (Manual) Lymphocytes % (Manual) Seg Neutrophils # Seg Neutrophils # Man Lymphocytes # (Manual) POC ABG pH ABG pH POC ABG pCO2 POC ABG pO2 ABG pO2 ABG HCO3 ABG Base Excess ABG Hemoglobin Oxyhemoglobin Potassium Chloride Carbon Dioxide BUN Glucose POC Glucose 188 H 199 H 235 H Calcium Urine WBC (Auto) 01/11/17 01/12/17 01/12/17 23:15 05:02 06:56 WBC RBC Hgb Hct MCV MCH RDW Plt Count Lymph % (Auto) [place] % (Auto) Seg Neutrophils % Seg Neuts % (Manual) Lymphocytes % (Manual) Seg Neutrophils # Seg Neutrophils # Man Lymphocytes # (Manual) POC ABG pH ABG pH POC ABG pCO2 28.0 L POC ABG pO2 178 H ABG pO2 ABG HCO3 ABG Base Excess ABG Hemoglobin Oxyhemoglobin Potassium Chloride Carbon Dioxide BUN Glucose POC Glucose 155 H 119 H Calcium Urine WBC (Auto) 01/12/17 01/13/17 01/13/17 14:50 03:37 03:37 WBC RBC 3.61 L Hgb 9.3 L Hct 28.0 L MCV 78 L MCH 26 L RDW 18.2 H Plt Count Lymph % (Auto) [place] % (Auto) Seg Neutrophils % Seg Neuts % (Manual) Lymphocytes % (Manual) Seg Neutrophils # Seg Neutrophils # Man Lymphocytes # (Manual) POC ABG pH ABG pH POC ABG pCO2 POC ABG pO2 ABG pO2 ABG HCO3 ABG Base Excess ABG Hemoglobin Oxyhemoglobin Potassium Chloride 112.4 H Carbon Dioxide 19 L BUN Glucose 118 H POC Glucose 164 H Calcium 8.0 L Urine WBC (Auto) 01/13/17 01/13/17 01/13/17 04:26 06:15 11:50 WBC RBC Hgb Hct MCV MCH RDW Plt Count Lymph % (Auto) [place] % (Auto) Seg Neutrophils % Seg Neuts % (Manual) Lymphocytes % (Manual) Seg Neutrophils # Seg Neutrophils # Man Lymphocytes # (Manual) POC ABG pH 7.485 H ABG pH POC ABG pCO2 25.4 L POC ABG pO2 73 L ABG pO2 ABG HCO3 ABG Base Excess ABG Hemoglobin Oxyhemoglobin Potassium Chloride Carbon Dioxide BUN Glucose POC Glucose 116 H 171 H Calcium Urine WBC (Auto) 01/13/17 01/14/17 01/14/17 17:31 00:02 04:50 WBC RBC 3.32 L Hgb 8.5 L Hct 26.1 L MCV 79 L MCH 26 L RDW 18.2 H Plt Count Lymph % (Auto) [place] % (Auto) 9.0 H Seg Neutrophils % Seg Neuts % (Manual) Lymphocytes % (Manual) Seg Neutrophils # Seg Neutrophils # Man Lymphocytes # (Manual) POC ABG pH ABG pH POC ABG pCO2 POC ABG pO2 ABG pO2 ABG HCO3 ABG Base Excess ABG Hemoglobin Oxyhemoglobin Potassium Chloride Carbon Dioxide BUN Glucose POC Glucose 203 H 157 H Calcium Urine WBC (Auto) 01/14/17 01/14/17 01/14/17 04:50 05:10 11:27 WBC RBC Hgb Hct MCV MCH RDW Plt Count Lymph % (Auto) [place] % (Auto) Seg Neutrophils % Seg Neuts % (Manual) Lymphocytes % (Manual) Seg Neutrophils # Seg Neutrophils # Man Lymphocytes # (Manual) POC ABG pH ABG pH POC ABG pCO2 POC ABG pO2 ABG pO2 ABG HCO3 ABG Base Excess ABG Hemoglobin Oxyhemoglobin Potassium Chloride 112.5 H Carbon Dioxide BUN Glucose 149 H POC Glucose 176 H 147 H Calcium 8.1 L Urine WBC (Auto) 01/14/17 01/14/17 01/15/17 14:07 16:52 00:04 WBC RBC Hgb Hct MCV MCH RDW Plt Count Lymph % (Auto) [place] % (Auto) Seg Neutrophils % Seg Neuts % (Manual) Lymphocytes % (Manual) Seg Neutrophils # Seg Neutrophils # Man Lymphocytes # (Manual) POC ABG pH ABG pH POC ABG pCO2 POC ABG pO2 ABG pO2 ABG HCO3 ABG Base Excess ABG Hemoglobin Oxyhemoglobin Potassium Chloride Carbon Dioxide BUN Glucose POC Glucose 131 H 193 H Calcium Urine WBC (Auto) 53.0 H 01/15/17 01/15/17 01/15/17 05:26 11:49 17:47 WBC RBC Hgb Hct MCV MCH RDW Plt Count Lymph % (Auto) [place] % (Auto) Seg Neutrophils % Seg Neuts % (Manual) Lymphocytes % (Manual) Seg Neutrophils # Seg Neutrophils # Man Lymphocytes # (Manual) POC ABG pH ABG pH POC ABG pCO2 POC ABG pO2 ABG pO2 ABG HCO3 ABG Base Excess ABG Hemoglobin Oxyhemoglobin Potassium Chloride Carbon Dioxide BUN Glucose POC Glucose 215 H 121 H 211 H Calcium Urine WBC (Auto) 01/15/17 01/16/17 01/16/17 21:33 04:30 05:28 WBC RBC Hgb Hct MCV MCH RDW Plt Count Lymph % (Auto) [place] % (Auto) Seg Neutrophils % Seg Neuts % (Manual) Lymphocytes % (Manual) Seg Neutrophils # Seg Neutrophils # Man Lymphocytes # (Manual) POC ABG pH ABG pH 7.457 H POC ABG pCO2 POC ABG pO2 ABG pO2 55.1 L ABG HCO3 19.4 L ABG Base Excess -4.0 L ABG Hemoglobin 6.8 L Oxyhemoglobin 94.9 L Potassium Chloride Carbon Dioxide BUN Glucose POC Glucose 275 H 271 H Calcium Urine WBC (Auto) Chest x-ray: report reviewed, image reviewed
--- NOTE | 2017-01-16 13:20 | Cat Scan Report ---
CT HEAD WITHOUT CONTRAST: HISTORY: Altered mental status. Serial contiguous axial images were obtained through the cranium. Intravenous contrast material was not administered. The ventricles are normal in size and appearance. There is no mass effect or midline shift. No areas of abnormally increased or decreased attenuation are seen. No mass lesion is seen. Moderate fluid has accumulated in the paranasal sinuses which is probably secondary to retained secretions. A left nasal tube is in place. IMPRESSION: No acute intracranial process. No significant change since 01/09/17.
[2017-01-16] MEDS: ROCEPHIN/NS 1 GM/50 ML 1 GM/50 ML BAG IV SCH (22:07)
[2017-01-17 05:08] LABS: BUN/Creatinine Ratio 9; Blood Urea Nitrogen 8 mg/dL (9-20); Calcium 7.6 mg/dL (8.4-10.2); Hemolysis Index 26
[2017-01-17 05:12] LABS: Hematocrit 23.3 % (35.5-45.6); Hemoglobin 7.7 gm/dl (11.8-15.2); Mean Corpuscular HGB Conc 33 % (32-34); Mean Corpuscular Volume 78 fl (84-94); Platelet Count 281 K/mm3 (140-440); Red Blood Count 2.98 M/mm3 (3.65-5.03); Red Cell Distribution Width 18.1 % (13.2-15.2)
[2017-01-17 05:18] LABS: Mean Corpuscular Hemoglobin 26 pg (28-32)
[2017-01-17 05:22] LABS: INR 1.04 (0.87-1.13)
[2017-01-17 05:23] LABS: Partial Thromboplastin Time 36.6 Sec. (24.2-36.6)
[2017-01-17] MEDS: ZOSYN/NS 4.5GM/100ML 4.5 GM/100 ML VIAL IV SCH (05:44)
[2017-01-17 05:57] LABS: ABG Base Excess -2.3 mmol/L (-2.0-3.0); ABG HCO3 21.9 mmol/L (20.0-26.0); ABG Methemoglobin 0.5 % (0.0-1.5); ABG PCO2 34.5 mm Hg; ABG PH 7.42 pH Units (7.350-7.450); ABG PO2 160.3 mm Hg (80.0-90.0)
[2017-01-17] MEDS: VANCOMYCIN/NS 1 GM/250 ML 1 GM/250 ML BAG IV SCH (06:05)
[2017-01-17] MEDS: SYNTHROID PO SCH (06:06)
[2017-01-17] MEDS: NOVOLOG SUB-Q SCH ×3 (06:39→18:38)
--- NOTE | 2017-01-17 08:53 | Progress Note ---
Assessment and Plan Assessment and plan: 51 YO Male with CKD,HTN, DM presents to ED for evaluation. Pt unable to provide history. Pt history taken from ED staff, and medical records. Pt found down and unresponsive by his neighbor, who subsequently called EMS. Upon arrival, patient found unresponsive on the floor with a serum glucose of 21, and covered with ants with insulin syringes around him and a bottle of atenolol which still had many pills remaining, patient has a known history of alcohol abuse and delirium tremens. The patient was administered D5 approximate 500 mls during transport without change in mental status/level of consciousness. Pt seen and evaluated in ED was was found to be unable to protect his airway. Pt intubated and placed on vent support. 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 Pt treated with supportive care and transferred to ICU. Hypoglycemic brain injury -Continue supportive care Persistent vegetative state Currently comatose, recovery is unlikely in grade IV coma obtain NM brain flow study Metabolic encephalopathy - CT head negative for any acute events, repeat CT is unchanged, MRI cannot be done as there is no family to do Pre-MRI screening Hypoglycemia/hypothermia Continue dextrose, tube feeding to be started Acute respiratory failure mechanical ventilator greater than 96 hours - Patient is intubated and on mechanical ventilation Sepsis ruled out, UTI ruled out cxr, urine and blood cx negative -Fevers most likely due to brain injury, unable to central moderate body temp hyponatremia, resolved with IV hydration Hypothyroidism -Myxedema coma was previously documented in patient's chart. However normal free T4 levels do not support a diagnosis of myxedema coma. The patient has hypothyroidism, continue Synthroid SS unable to locate any family. Patient's prognosis is very poor, he'll most likely benefit from terminal extubation and comfort care versus inpatient hospice placement, CM aware, we are still trying to locate a family member. left a message for Risk management, the patient will need an ethics consult as we cannot reach any family The high probability of a clinically significant, sudden or life threatening deterioration of the [neurologic, respiratory and CV] system(s) required my full and direct attention, intervention and personal management. The aggregate critical care time was [33] minutes. This time is in addition to time spent performing reported procedures but includes the following: [] Data Review and interpretation [] Patient assessment and monitoring of vital signs [] Documentation [] Medication orders and management History Interval history: patient remains comatose, no movement of extremities Hospitalist Physical - Physical exam Narrative exam: General: comatose HEENT: Moist mucous membranes, , no lymphadenopathy Neck: supple Cardiac: S1-S2 heard Lungs: mech ventilated breath sounds Abdomen: soft , nontender, nondistended, bowel sounds positive Extremities: no edema clubbing or cyanosis Skin: no rash or lesions Neurologic: No gag reflex, pupils minimally responsive, no response to deep painful stimuli - Constitutional Vitals: Temp Pulse Resp BP Pulse Ox 98.7 F 69 17 153/68 100 01/17/17 08:00 01/17/17 07:25 01/17/17 07:00 01/17/17 07:00 01/17/17 07:25 Results - Labs CBC & Chem 7: 01/17/17 04:10 01/17/17 04:10 Labs: Laboratory Last Values WBC 4.4 K/mm3 (4.5-11.0) L 01/17/17 04:10 RBC 2.98 M/mm3 (3.65-5.03) L 01/17/17 04:10 Hgb 7.7 gm/dl (11.8-15.2) L 01/17/17 04:10 Hct 23.3 % (35.5-45.6) L 01/17/17 04:10 MCV 78 fl (84-94) L 01/17/17 04:10 MCH 26 pg (28-32) L 01/17/17 04:10 MCHC 33 % (32-34) 01/17/17 04:10 RDW 18.1 % (13.2-15.2) H 01/17/17 04:10 Plt Count 281 K/mm3 (140-440) 01/17/17 04:10 Lymph % (Auto) 21.5 % (13.4-35.0) 01/14/17 04:50 Johnson % (Auto) 9.0 % (0.0-7.3) H 01/14/17 04:50 Eos % (Auto) 0.6 % (0.0-4.3) 01/14/17 04:50 Baso % (Auto) 0.9 % (0.0-1.8) 01/14/17 04:50 Lymph # 1.4 K/mm3 (1.2-5.4) 01/14/17 04:50 Johnson # 0.6 K/mm3 (0.0-0.8) 01/14/17 04:50 Eos # 0.0 K/mm3 (0.0-0.4) 01/14/17 04:50 Baso # 0.1 K/mm3 (0.0-0.1) 01/14/17 04:50 Add Manual Diff Complete 01/10/17 04:30 Total Counted 100 01/10/17 04:30 Seg Neutrophils % 68.0 % (40.0-70.0) 01/14/17 04:50 Seg Neuts % (Manual) 88.0 % (40.0-70.0) H 01/10/17 04:30 Band Neutrophils % 7.0 % 01/10/17 04:30 Lymphocytes % (Manual) 4.0 % (13.4-35.0) L 01/10/17 04:30 Reactive Lymphs % (Man) 0 % 01/10/17 04:30 Monocytes % (Manual) 1.0 % (0.0-7.3) 01/10/17 04:30 Eosinophils % (Manual) 0 % (0.0-4.3) 01/10/17 04:30 Basophils % (Manual) 0 % (0.0-1.8) 01/10/17 04:30 Metamyelocytes % 0 % 01/10/17 04:30 Myelocytes % 0 % 01/10/17 04:30 Promyelocytes % 0 % 01/10/17 04:30 Blast Cells % 0 % 01/10/17 04:30 Nucleated RBC % Not Reportable 01/10/17 04:30 Seg Neutrophils # 4.3 K/mm3 (1.8-7.7) 01/14/17 04:50 Seg Neutrophils # Man 21.2 K/mm3 (1.8-7.7) H 01/10/17 04:30 Band Neutrophils # 1.7 K/mm3 01/10/17 04:30 Lymphocytes # (Manual) 1.0 K/mm3 (1.2-5.4) L 01/10/17 04:30 Abs React Lymphs (Man) 0.0 K/mm3 01/10/17 04:30 Monocytes # (Manual) 0.2 K/mm3 (0.0-0.8) 01/10/17 04:30 Eosinophils # (Manual) 0.0 K/mm3 (0.0-0.4) 01/10/17 04:30 Basophils # (Manual) 0.0 K/mm3 (0.0-0.1) 01/10/17 04:30 Metamyelocytes # 0.0 K/mm3 01/10/17 04:30 Myelocytes # 0.0 K/mm3 01/10/17 04:30 Promyelocytes # 0.0 K/mm3 01/10/17 04:30 Blast Cells # 0.0 K/mm3 01/10/17 04:30 WBC Morphology Not Reportable 01/10/17 04:30 Hypersegmented Neuts Not Reportable 01/10/17 04:30 Hyposegmented Neuts Not Reportable 01/10/17 04:30 Hypogranular Neuts Not Reportable 01/10/17 04:30 Smudge Cells Not Reportable 01/10/17 04:30 Toxic Granulation Not Reportable 01/10/17 04:30 Toxic Vacuolation Not Reportable 01/10/17 04:30 Dohle Bodies Not Reportable 01/10/17 04:30 Pelger-Huet Anomaly Not Reportable 01/10/17 04:30 Shelby Rods Not Reportable 01/10/17 04:30 Platelet Estimate Consistent w auto 01/10/17 04:30 Clumped Platelets Not Reportable 01/10/17 04:30 Plt Clumps, EDTA Not Reportable 01/10/17 04:30 Large Platelets Not Reportable 01/10/17 04:30 Giant Platelets Not Reportable 01/10/17 04:30 Platelet Satelliting Not Reportable 01/10/17 04:30 Plt Morphology Comment Not Reportable 01/10/17 04:30 RBC Morphology Not Reportable 01/10/17 04:30 Dimorphic RBCs Not Reportable 01/10/17 04:30 Polychromasia Not Reportable 01/10/17 04:30 Hypochromasia 1+ 01/10/17 04:30 Poikilocytosis Not Reportable 01/10/17 04:30 Anisocytosis Not Reportable 01/10/17 04:30 Microcytosis Not Reportable 01/10/17 04:30 Macrocytosis Not Reportable 01/10/17 04:30 Spherocytes Not Reportable 01/10/17 04:30 Pappenheimer Bodies Not Reportable 01/10/17 04:30 Sickle Cells Not Reportable 01/10/17 04:30 Target Cells Not Reportable 01/10/17 04:30 Tear Drop Cells Not Reportable 01/10/17 04:30 Ovalocytes Not Reportable 01/10/17 04:30 Helmet Cells Not Reportable 01/10/17 04:30 [place] Bodies Not Reportable 01/10/17 04:30 [place] Rings Not Reportable 01/10/17 04:30 [place] Cells Not Reportable 01/10/17 04:30 Bite Cells Not Reportable 01/10/17 04:30 Crenated Cell Not Reportable 01/10/17 04:30 Elliptocytes Not Reportable 01/10/17 04:30 Acanthocytes (Spur) Not Reportable 01/10/17 04:30 Rouleaux Not Reportable 01/10/17 04:30 Hemoglobin C Crystals Not Reportable 01/10/17 04:30 Schistocytes Not Reportable 01/10/17 04:30 Malaria parasites Not Reportable 01/10/17 04:30 Kyle Bodies Not Reportable 01/10/17 04:30 Hem Pathologist Commnt No 01/10/17 04:30 PT 14.1 Sec. (12.2-14.9) 01/17/17 04:10 INR 1.04 (0.87-1.13) 01/17/17 04:10 APTT 36.6 Sec. (24.2-36.6) 01/17/17 04:10 POC ABG pH 7.485 (7.35-7.45) H 01/13/17 04:26 ABG pH 7.420 pH Units (7.350-7.450) 01/17/17 04:35 POC ABG pCO2 25.4 (35-45) L 01/13/17 04:26 ABG pCO2 34.5 mm Hg 01/17/17 04:35 POC ABG pO2 73 (80-105) L 01/13/17 04:26 ABG pO2 160.3 mm Hg (80.0-90.0) H 01/17/17 04:35 POC ABG HCO3 19.1 01/13/17 04:26 ABG HCO3 21.9 mmol/L (20.0-26.0) 01/17/17 04:35 POC ABG Total CO2 20 01/13/17 04:26 POC ABG O2 Sat 96 01/13/17 04:26 ABG O2 Saturation 99.0 % (95.0-99.0) 01/17/17 04:35 ABG O2 Content 11.1 (0.0-44) 01/17/17 04:35 POC ABG Base Excess -4 01/13/17 04:26 ABG Base Excess -2.3 mmol/L (-2.0-3.0) L 01/17/17 04:35 ABG Hemoglobin 7.9 gm/dl (14.0-18.0) L 01/17/17 04:35 ABG Carboxyhemoglobin 1.5 % (0.0-5.0) 01/17/17 04:35 ABG Methemoglobin 0.5 % (0.0-1.5) 01/17/17 04:35 VBG pH 7.284 (7.320-7.420) L 01/09/17 10:16 Oxyhemoglobin 97.1 % (95.0-99.0) 01/17/17 04:35 FiO2 30 % 01/17/17 04:35 Sodium 139 mmol/L (137-145) 01/17/17 04:10 Potassium 3.3 mmol/L (3.6-5.0) L 01/17/17 04:10 Chloride 108.7 mmol/L (98-107) H 01/17/17 04:10 Carbon Dioxide 20 mmol/L (22-30) L 01/17/17 04:10 Anion Gap 14 mmol/L 01/17/17 04:10 BUN 8 mg/dL (9-20) L 01/17/17 04:10 Creatinine 0.9 mg/dL (0.8-1.5) 01/17/17 04:10 Estimated GFR > 60 ml/min 01/17/17 04:10 BUN/Creatinine Ratio 9 % 01/17/17 04:10 Glucose 202 mg/dL (75-100) H 01/17/17 04:10 POC Glucose 258 (70-105) H 01/16/17 21:39 Lactic Acid 1.00 mmol/L (0.7-2.0) 01/09/17 10:16 Calcium 7.6 mg/dL (8.4-10.2) L 01/17/17 04:10 Magnesium 2.10 mg/dL (1.7-2.3) 01/09/17 10:16 Total Bilirubin 0.30 mg/dL (0.1-1.2) 01/09/17 10:16 AST 25 units/L (5-40) 01/09/17 10:16 ALT 17 units/L (7-56) 01/09/17 10:16 Alkaline Phosphatase 151 units/L (35-129) H 01/09/17 10:16 Ammonia 35.0 umol/L (25-60) 01/09/17 10:16 Total Creatine Kinase 135 units/L (55-170) 01/09/17 10:16 CK-MB (CK-2) 7.1 ng/mL (0.0-4.0) H 01/09/17 10:16 CK-MB (CK-2) Rel Index 5.2 (0-4) H 01/09/17 10:16 Troponin T < 0.010 ng/mL (0.00-0.029) 01/09/17 10:16 NT-Pro-B Natriuret Pep 602.9 pg/mL (0-900) 01/09/17 10:16 Total Protein 8.2 g/dL (6.3-8.2) 01/09/17 10:16 Albumin 3.3 g/dL (3.9-5) L 01/09/17 10:16 Albumin/Globulin Ratio 0.7 % 01/09/17 10:16 TSH 52.800 mlU/mL (0.270-4.200) H 01/09/17 10:16 Free T4 0.78 ng/dL (0.76-1.46) 01/09/17 10:16 Total Cortisol 54.8 mcg/dL () 01/09/17 16:19 Urine Color Yellow (Yellow) 01/14/17 14:07 Urine Turbidity Clear (Clear) 01/14/17 14:07 Urine pH 5.0 (5.0-7.0) 01/14/17 14:07 Ur Specific [place] 1.011 (1.003-1.030) 01/14/17 14:07 Urine Protein <15 mg/dl mg/dL (Negative) 01/14/17 14:07 Urine Glucose (UA) Neg mg/dL (Negative) 01/14/17 14:07 Urine Ketones Neg mg/dL (Negative) 01/14/17 14:07 Urine Blood Sm (Negative) 01/14/17 14:07 Urine Nitrite Neg (Negative) 01/14/17 14:07 Urine Bilirubin Neg (Negative) 01/14/17 14:07 Urine Urobilinogen < 2.0 mg/dL (<2.0) 01/14/17 14:07 Ur Leukocyte Esterase Lg (Negative) 01/14/17 14:07 Urine WBC (Auto) 53.0 /HPF (0.0-6.0) H 01/14/17 14:07 Urine RBC (Auto) 12.0 /HPF (0.0-6.0) 01/14/17 14:07 Urine Bacteria (Auto) 1+ /HPF (Negative) 01/09/17 10:23 Urine Mucus Few /HPF 01/14/17 14:07 Urine Yeast (Budding) 3+ /HPF 01/14/17 14:07 Salicylates < 0.3 mg/dL (2.8-20.0) L 01/09/17 10:16 Urine Opiates Screen Presumptive negative 01/09/17 10:23 Urine Methadone Screen Presumptive negative 01/09/17 10:23 Acetaminophen < 15.0 ug/mL (10.0-30.0) 01/09/17 10:16 Ur Barbiturates Screen Presumptive negative 01/09/17 10:23 Ur Phencyclidine Scrn Presumptive negative 01/09/17 10:23 Ur Amphetamines Screen Presumptive negative 01/09/17 10:23 U Benzodiazepines Scrn Presumptive negative 01/09/17 10:23 Urine Cocaine Screen Presumptive negative 01/09/17 10:23 U Marijuana (THC) Screen Presumptive negative 01/09/17 10:23 Drugs of Abuse Note Disclamer 01/09/17 10:23 Plasma/Serum Alcohol < 0.01 gm% (0-0.07) 01/09/17 10:16
--- NOTE | 2017-01-17 09:26 | Progress Note ---
Assessment and Plan 51 y/o male found down, concern for sepsis and now encephalopathic requiring mechanical ventilation. 1. Continue PSV trials as tolerated 2. Rpt head CT was negative. Patient still remains encephalopathic. Per neuro , no likely kaufman for recovery. Suggest family meeting with neuro involved to explain this to patient's family. 3. Agree with tracheostomy placement CCT 31 minutes. Subjective Date of service: 01/17/17 Principal diagnosis: Acute respiratory failure Interval history: No acute events. Remains unresponsive off sedation. No family at bedside. Objective Vital Signs - 12hr 01/16/17 01/16/17 01/16/17 22:00 22:05 22:10 Temperature Pulse Rate 66 66 67 Respiratory 16 Rate Blood Pressure 179/74 179/74 179/74 O2 Sat by Pulse 100 Oximetry 01/16/17 01/16/17 01/17/17 23:00 23:56 00:00 Temperature 98.3 F Pulse Rate 71 70 73 Respiratory 17 22 Rate Blood Pressure 179/74 111/51 102/51 O2 Sat by Pulse 99 98 Oximetry 01/17/17 01/17/17 01/17/17 01:00 02:00 03:00 Temperature Pulse Rate 67 65 67 Respiratory 15 16 16 Rate Blood Pressure 123/59 123/59 122/61 O2 Sat by Pulse 99 100 99 Oximetry 01/17/17 01/17/17 01/17/17 04:00 04:15 05:00 Temperature 98.8 F Pulse Rate 71 66 64 Respiratory 15 16 Rate Blood Pressure 136/61 136/61 144/62 O2 Sat by Pulse 100 100 99 Oximetry 01/17/17 01/17/17 01/17/17 06:00 07:00 07:25 Temperature Pulse Rate 64 65 69 Respiratory 16 17 Rate Blood Pressure 149/65 153/68 O2 Sat by Pulse 98 99 100 Oximetry 01/17/17 08:00 Temperature 98.7 F Pulse Rate Respiratory Rate Blood Pressure O2 Sat by Pulse Oximetry Constitutional: no acute distress, comatose, other (intubated, on vent) Eyes: non-icteric ENT: oropharynx moist Neck: supple, no JVD Effort: normal Ascultation: Bilateral: clear, diminished breath sounds Cardiovascular: regular rate and rhythm Gastrointestinal: normoactive bowel sounds, soft, non-tender, non-distended Integumentary: rash (lesions all over trunk/extremities (most appear to be scabs )) Extremities: no cyanosis, no edema, pink and warm Neurologic: non-focal exam, pupils equal and round, other (unresponsive, GCS 3) Psychiatric: other (unable to obtain) CBC and BMP: 01/17/17 04:10 01/17/17 04:10 ABG, PT/INR, D-dimer: ABG POC ABG pH 7.485 (7.35-7.45) H 01/13/17 04:26 ABG pH 7.420 pH Units (7.350-7.450) 01/17/17 04:35 POC ABG pCO2 25.4 (35-45) L 01/13/17 04:26 ABG pCO2 34.5 mm Hg 01/17/17 04:35 POC ABG pO2 73 (80-105) L 01/13/17 04:26 ABG pO2 160.3 mm Hg (80.0-90.0) H 01/17/17 04:35 POC ABG HCO3 19.1 01/13/17 04:26 POC ABG Total CO2 20 01/13/17 04:26 POC ABG O2 Sat 96 01/13/17 04:26 ABG O2 Saturation 99.0 % (95.0-99.0) 01/17/17 04:35 PT/INR, D-dimer PT 14.1 Sec. (12.2-14.9) 01/17/17 04:10 INR 1.04 (0.87-1.13) 01/17/17 04:10 Abnormal lab findings: Abnormal Labs 01/09/17 01/09/17 01/09/17 12:49 13:13 14:21 WBC RBC Hgb Hct MCV MCH RDW Plt Count Lymph % (Auto) Keith % (Auto) Seg Neutrophils % Seg Neuts % (Manual) Lymphocytes % (Manual) Seg Neutrophils # Seg Neutrophils # Man Lymphocytes # (Manual) POC ABG pH ABG pH POC ABG pCO2 POC ABG pO2 ABG pO2 ABG HCO3 ABG Base Excess ABG Hemoglobin Oxyhemoglobin Potassium Chloride Carbon Dioxide BUN Glucose POC Glucose < 40 L 128 H 65 L Calcium Urine WBC (Auto) 01/09/17 01/09/17 01/09/17 15:09 16:28 17:14 WBC RBC Hgb Hct MCV MCH RDW Plt Count Lymph % (Auto) Keith % (Auto) Seg Neutrophils % Seg Neuts % (Manual) Lymphocytes % (Manual) Seg Neutrophils # Seg Neutrophils # Man Lymphocytes # (Manual) POC ABG pH ABG pH POC ABG pCO2 POC ABG pO2 ABG pO2 ABG HCO3 ABG Base Excess ABG Hemoglobin Oxyhemoglobin Potassium Chloride Carbon Dioxide BUN Glucose POC Glucose 120 H 44 L 112 H Calcium Urine WBC (Auto) 01/10/17 01/10/17 01/10/17 04:30 04:30 05:41 WBC 24.1 H RBC 3.38 L Hgb 8.5 L Hct 26.0 L MCV 77 L MCH 25 L RDW 17.9 H Plt Count 474 H Lymph % (Auto) Keith % (Auto) Seg Neutrophils % Seg Neuts % (Manual) 88.0 H Lymphocytes % (Manual) 4.0 L Seg Neutrophils # Seg Neutrophils # Man 21.2 H Lymphocytes # (Manual) 1.0 L POC ABG pH ABG pH POC ABG pCO2 POC ABG pO2 ABG pO2 ABG HCO3 ABG Base Excess ABG Hemoglobin Oxyhemoglobin Potassium Chloride Carbon Dioxide 17 L BUN 27 H Glucose POC Glucose 68 L Calcium 7.5 L Urine WBC (Auto) 01/10/17 01/10/17 01/10/17 05:45 07:47 10:50 WBC RBC Hgb Hct MCV MCH RDW Plt Count Lymph % (Auto) Keith % (Auto) Seg Neutrophils % Seg Neuts % (Manual) Lymphocytes % (Manual) Seg Neutrophils # Seg Neutrophils # Man Lymphocytes # (Manual) POC ABG pH ABG pH POC ABG pCO2 26.6 L POC ABG pO2 207 H ABG pO2 ABG HCO3 ABG Base Excess ABG Hemoglobin Oxyhemoglobin Potassium Chloride Carbon Dioxide BUN Glucose POC Glucose 148 H 165 H Calcium Urine WBC (Auto) 01/10/17 01/10/17 01/10/17 13:41 20:20 21:39 WBC RBC Hgb Hct MCV MCH RDW Plt Count Lymph % (Auto) Keith % (Auto) Seg Neutrophils % Seg Neuts % (Manual) Lymphocytes % (Manual) Seg Neutrophils # Seg Neutrophils # Man Lymphocytes # (Manual) POC ABG pH ABG pH POC ABG pCO2 POC ABG pO2 ABG pO2 ABG HCO3 ABG Base Excess ABG Hemoglobin Oxyhemoglobin Potassium Chloride Carbon Dioxide BUN Glucose POC Glucose 114 H 150 H 175 H Calcium Urine WBC (Auto) 01/10/17 01/11/17 01/11/17 23:24 00:19 04:06 WBC RBC Hgb Hct MCV MCH RDW Plt Count Lymph % (Auto) Keith % (Auto) Seg Neutrophils % Seg Neuts % (Manual) Lymphocytes % (Manual) Seg Neutrophils # Seg Neutrophils # Man Lymphocytes # (Manual) POC ABG pH 7.463 H ABG pH POC ABG pCO2 26.2 L POC ABG pO2 185 H ABG pO2 ABG HCO3 ABG Base Excess ABG Hemoglobin Oxyhemoglobin Potassium Chloride Carbon Dioxide BUN Glucose POC Glucose 155 H 163 H Calcium Urine WBC (Auto) 01/11/17 01/11/17 01/11/17 05:20 05:20 06:21 WBC 15.2 H RBC 3.40 L Hgb 8.9 L Hct 26.3 L MCV 78 L MCH 26 L RDW 18.6 H Plt Count 462 H Lymph % (Auto) 13.2 L Keith % (Auto) Seg Neutrophils % 80.8 H Seg Neuts % (Manual) Lymphocytes % (Manual) Seg Neutrophils # 12.3 H Seg Neutrophils # Man Lymphocytes # (Manual) POC ABG pH ABG pH POC ABG pCO2 POC ABG pO2 ABG pO2 ABG HCO3 ABG Base Excess ABG Hemoglobin Oxyhemoglobin Potassium 3.4 L Chloride 111.5 H Carbon Dioxide 17 L BUN Glucose 147 H POC Glucose 139 H Calcium 8.0 L Urine WBC (Auto) 01/11/17 01/11/17 01/11/17 07:57 11:46 16:50 WBC RBC Hgb Hct MCV MCH RDW Plt Count Lymph % (Auto) Keith % (Auto) Seg Neutrophils % Seg Neuts % (Manual) Lymphocytes % (Manual) Seg Neutrophils # Seg Neutrophils # Man Lymphocytes # (Manual) POC ABG pH ABG pH POC ABG pCO2 POC ABG pO2 ABG pO2 ABG HCO3 ABG Base Excess ABG Hemoglobin Oxyhemoglobin Potassium Chloride Carbon Dioxide BUN Glucose POC Glucose 188 H 199 H 235 H Calcium Urine WBC (Auto) 01/11/17 01/12/17 01/12/17 23:15 05:02 06:56 WBC RBC Hgb Hct MCV MCH RDW Plt Count Lymph % (Auto) Keith % (Auto) Seg Neutrophils % Seg Neuts % (Manual) Lymphocytes % (Manual) Seg Neutrophils # Seg Neutrophils # Man Lymphocytes # (Manual) POC ABG pH ABG pH POC ABG pCO2 28.0 L POC ABG pO2 178 H ABG pO2 ABG HCO3 ABG Base Excess ABG Hemoglobin Oxyhemoglobin Potassium Chloride Carbon Dioxide BUN Glucose POC Glucose 155 H 119 H Calcium Urine WBC (Auto) 01/12/17 01/13/17 01/13/17 14:50 03:37 03:37 WBC RBC 3.61 L Hgb 9.3 L Hct 28.0 L MCV 78 L MCH 26 L RDW 18.2 H Plt Count Lymph % (Auto) Keith % (Auto) Seg Neutrophils % Seg Neuts % (Manual) Lymphocytes % (Manual) Seg Neutrophils # Seg Neutrophils # Man Lymphocytes # (Manual) POC ABG pH ABG pH POC ABG pCO2 POC ABG pO2 ABG pO2 ABG HCO3 ABG Base Excess ABG Hemoglobin Oxyhemoglobin Potassium Chloride 112.4 H Carbon Dioxide 19 L BUN Glucose 118 H POC Glucose 164 H Calcium 8.0 L Urine WBC (Auto) 01/13/17 01/13/17 01/13/17 04:26 06:15 11:50 WBC RBC Hgb Hct MCV MCH RDW Plt Count Lymph % (Auto) Keith % (Auto) Seg Neutrophils % Seg Neuts % (Manual) Lymphocytes % (Manual) Seg Neutrophils # Seg Neutrophils # Man Lymphocytes # (Manual) POC ABG pH 7.485 H ABG pH POC ABG pCO2 25.4 L POC ABG pO2 73 L ABG pO2 ABG HCO3 ABG Base Excess ABG Hemoglobin Oxyhemoglobin Potassium Chloride Carbon Dioxide BUN Glucose POC Glucose 116 H 171 H Calcium Urine WBC (Auto) 01/13/17 01/14/17 01/14/17 17:31 00:02 04:50 WBC RBC 3.32 L Hgb 8.5 L Hct 26.1 L MCV 79 L MCH 26 L RDW 18.2 H Plt Count Lymph % (Auto) Keith % (Auto) 9.0 H Seg Neutrophils % Seg Neuts % (Manual) Lymphocytes % (Manual) Seg Neutrophils # Seg Neutrophils # Man Lymphocytes # (Manual) POC ABG pH ABG pH POC ABG pCO2 POC ABG pO2 ABG pO2 ABG HCO3 ABG Base Excess ABG Hemoglobin Oxyhemoglobin Potassium Chloride Carbon Dioxide BUN Glucose POC Glucose 203 H 157 H Calcium Urine WBC (Auto) 01/14/17 01/14/17 01/14/17 04:50 05:10 11:27 WBC RBC Hgb Hct MCV MCH RDW Plt Count Lymph % (Auto) Keith % (Auto) Seg Neutrophils % Seg Neuts % (Manual) Lymphocytes % (Manual) Seg Neutrophils # Seg Neutrophils # Man Lymphocytes # (Manual) POC ABG pH ABG pH POC ABG pCO2 POC ABG pO2 ABG pO2 ABG HCO3 ABG Base Excess ABG Hemoglobin Oxyhemoglobin Potassium Chloride 112.5 H Carbon Dioxide BUN Glucose 149 H POC Glucose 176 H 147 H Calcium 8.1 L Urine WBC (Auto) 01/14/17 01/14/17 01/15/17 14:07 16:52 00:04 WBC RBC Hgb Hct MCV MCH RDW Plt Count Lymph % (Auto) Keith % (Auto) Seg Neutrophils % Seg Neuts % (Manual) Lymphocytes % (Manual) Seg Neutrophils # Seg Neutrophils # Man Lymphocytes # (Manual) POC ABG pH ABG pH POC ABG pCO2 POC ABG pO2 ABG pO2 ABG HCO3 ABG Base Excess ABG Hemoglobin Oxyhemoglobin Potassium Chloride Carbon Dioxide BUN Glucose POC Glucose 131 H 193 H Calcium Urine WBC (Auto) 53.0 H 01/15/17 01/15/17 01/15/17 05:26 11:49 17:47 WBC RBC Hgb Hct MCV MCH RDW Plt Count Lymph % (Auto) Keith % (Auto) Seg Neutrophils % Seg Neuts % (Manual) Lymphocytes % (Manual) Seg Neutrophils # Seg Neutrophils # Man Lymphocytes # (Manual) POC ABG pH ABG pH POC ABG pCO2 POC ABG pO2 ABG pO2 ABG HCO3 ABG Base Excess ABG Hemoglobin Oxyhemoglobin Potassium Chloride Carbon Dioxide BUN Glucose POC Glucose 215 H 121 H 211 H Calcium Urine WBC (Auto) 01/15/17 01/16/17 01/16/17 21:33 04:30 05:28 WBC RBC Hgb Hct MCV MCH RDW Plt Count Lymph % (Auto) [place] % (Auto) Seg Neutrophils % Seg Neuts % (Manual) Lymphocytes % (Manual) Seg Neutrophils # Seg Neutrophils # Man Lymphocytes # (Manual) POC ABG pH ABG pH 7.457 H POC ABG pCO2 POC ABG pO2 ABG pO2 55.1 L ABG HCO3 19.4 L ABG Base Excess -4.0 L ABG Hemoglobin 6.8 L Oxyhemoglobin 94.9 L Potassium Chloride Carbon Dioxide BUN Glucose POC Glucose 275 H 271 H Calcium Urine WBC (Auto) 01/16/17 01/16/17 01/17/17 13:45 21:39 04:10 WBC 4.4 L RBC 2.98 L Hgb 7.7 L Hct 23.3 L MCV 78 L MCH 26 L RDW 18.1 H Plt Count Lymph % (Auto) Keith % (Auto) Seg Neutrophils % Seg Neuts % (Manual) Lymphocytes % (Manual) Seg Neutrophils # Seg Neutrophils # Man Lymphocytes # (Manual) POC ABG pH ABG pH POC ABG pCO2 POC ABG pO2 ABG pO2 ABG HCO3 ABG Base Excess ABG Hemoglobin Oxyhemoglobin Potassium Chloride Carbon Dioxide BUN Glucose POC Glucose 236 H 258 H Calcium Urine WBC (Auto) 01/17/17 01/17/17 04:10 04:35 WBC RBC Hgb Hct MCV MCH RDW Plt Count Lymph % (Auto) Keith % (Auto) Seg Neutrophils % Seg Neuts % (Manual) Lymphocytes % (Manual) Seg Neutrophils # Seg Neutrophils # Man Lymphocytes # (Manual) POC ABG pH ABG pH POC ABG pCO2 POC ABG pO2 ABG pO2 160.3 H ABG HCO3 ABG Base Excess -2.3 L ABG Hemoglobin 7.9 L Oxyhemoglobin Potassium 3.3 L Chloride 108.7 H Carbon Dioxide 20 L BUN 8 L Glucose 202 H POC Glucose Calcium 7.6 L Urine WBC (Auto)
[2017-01-17] MEDS: NORMODYNE PO SCH ×2 (09:35→22:03)
[2017-01-17] MEDS: PEPCID PO SCH ×2 (09:35→22:03)
[2017-01-17] MEDS: HEPARIN SUB-Q SCH ×2 (09:35→22:03)
[2017-01-17] MEDS ORDERED: POTASSIUM CHLORIDE FEEDTUBE ONE (12:00)
[2017-01-17] MEDS: LEVEMIR (NF) SUB-Q SCH (12:32)
[2017-01-17] MEDS ORDERED: SIMPLE SYRUP FEEDTUBE PRN ×2 (14:35)
[2017-01-17] MEDS ORDERED: PANCREAZE DR 10,500 UNIT FEEDTUBE PRN (14:35)
[2017-01-17] MEDS ORDERED: SODIUM BICARBONATE FEEDTUBE PRN (14:35)
[2017-01-18] MEDS: APRESOLINE IV PRN ×2 (05:05→17:37)
[2017-01-18] MEDS: SYNTHROID PO SCH (05:22)
[2017-01-18] MEDS: NOVOLOG SUB-Q SCH ×4 (05:40→18:10)
--- NOTE | 2017-01-18 09:17 | Progress Note ---
Assessment and Plan 51 y/o male found down, concern for sepsis and now encephalopathic requiring mechanical ventilation. 1. On rounds, found out patient has no family. Based upon neurology note, need to have a discussion about goals of care. Asked for ethics to evaluate the case so help us make the appropriate decision in regards to care. If there is no hope for cognitive function, I am not sure that trach and peg are the right things to do for this patient. 2. Called Neuro and asked them to attend ethics meeting. CCT 31 minutes. Subjective Date of service: 01/18/17 Principal diagnosis: Acute respiratory failure Interval history: Clinical state is unchanged. Remains unresponsive. Currently on PSV 01/13. Decent volumes. Found out on rounds yesterday that the patient has no family. Objective Vital Signs - 12hr 01/17/17 01/17/17 01/17/17 22:00 22:03 23:00 Temperature Pulse Rate 63 64 65 Respiratory 16 17 Rate Blood Pressure 152/59 152/59 169/65 O2 Sat by Pulse 100 100 Oximetry 01/17/17 01/17/17 01/17/17 23:05 23:09 23:35 Temperature 99.3 F Pulse Rate 64 64 Respiratory 17 Rate Blood Pressure 169/65 169/65 O2 Sat by Pulse 100 100 Oximetry 01/18/17 01/18/17 01/18/17 00:00 01:00 02:00 Temperature Pulse Rate 65 65 64 Respiratory 22 16 16 Rate Blood Pressure 165/71 159/69 169/72 O2 Sat by Pulse 100 100 100 Oximetry 01/18/17 01/18/17 01/18/17 03:00 03:17 03:41 Temperature 99.5 F Pulse Rate 66 66 Respiratory 19 Rate Blood Pressure 155/64 155/64 O2 Sat by Pulse 100 100 Oximetry 01/18/17 01/18/17 01/18/17 04:00 04:01 05:01 Temperature Pulse Rate 65 64 Respiratory 14 16 16 Rate Blood Pressure 180/76 183/81 O2 Sat by Pulse 100 99 100 Oximetry 01/18/17 01/18/17 01/18/17 05:05 06:00 07:00 Temperature Pulse Rate 64 66 67 Respiratory 13 14 Rate Blood Pressure 183/81 150/57 136/60 O2 Sat by Pulse 97 99 Oximetry 01/18/17 01/18/17 01/18/17 07:55 08:00 08:01 Temperature 98.4 F Pulse Rate 66 Respiratory 13 14 Rate Blood Pressure 162/66 O2 Sat by Pulse 100 97 Oximetry 01/18/17 08:30 Temperature Pulse Rate 68 Respiratory Rate Blood Pressure 147/66 O2 Sat by Pulse 100 Oximetry Constitutional: no acute distress, comatose, other (intubated, on vent) Eyes: non-icteric ENT: oropharynx moist Neck: supple, no JVD Effort: normal Ascultation: Bilateral: clear, diminished breath sounds Cardiovascular: regular rate and rhythm Gastrointestinal: normoactive bowel sounds, soft, non-tender, non-distended Integumentary: rash (lesions all over trunk/extremities (most appear to be scabs )) Extremities: no cyanosis, no edema, pink and warm Neurologic: non-focal exam, pupils equal and round, other (unresponsive, GCS 3) Psychiatric: other (unable to obtain) CBC and BMP: 01/17/17 04:10 01/17/17 04:10 ABG, PT/INR, D-dimer: ABG POC ABG pH 7.485 (7.35-7.45) H 01/13/17 04:26 ABG pH 7.420 pH Units (7.350-7.450) 01/17/17 04:35 POC ABG pCO2 25.4 (35-45) L 01/13/17 04:26 ABG pCO2 34.5 mm Hg 01/17/17 04:35 POC ABG pO2 73 (80-105) L 01/13/17 04:26 ABG pO2 160.3 mm Hg (80.0-90.0) H 01/17/17 04:35 POC ABG HCO3 19.1 01/13/17 04:26 POC ABG Total CO2 20 01/13/17 04:26 POC ABG O2 Sat 96 01/13/17 04:26 ABG O2 Saturation 99.0 % (95.0-99.0) 01/17/17 04:35 PT/INR, D-dimer PT 14.1 Sec. (12.2-14.9) 01/17/17 04:10 INR 1.04 (0.87-1.13) 01/17/17 04:10 Abnormal lab findings: Abnormal Labs 01/09/17 01/09/17 01/09/17 12:49 13:13 14:21 WBC RBC Hgb Hct MCV MCH RDW Plt Count Lymph % (Auto) [place] % (Auto) Seg Neutrophils % Seg Neuts % (Manual) Lymphocytes % (Manual) Seg Neutrophils # Seg Neutrophils # Man Lymphocytes # (Manual) POC ABG pH ABG pH POC ABG pCO2 POC ABG pO2 ABG pO2 ABG HCO3 ABG Base Excess ABG Hemoglobin Oxyhemoglobin Potassium Chloride Carbon Dioxide BUN Glucose POC Glucose < 40 L 128 H 65 L Calcium Urine WBC (Auto) 01/09/17 01/09/17 01/09/17 15:09 16:28 17:14 WBC RBC Hgb Hct MCV MCH RDW Plt Count Lymph % (Auto) [place] % (Auto) Seg Neutrophils % Seg Neuts % (Manual) Lymphocytes % (Manual) Seg Neutrophils # Seg Neutrophils # Man Lymphocytes # (Manual) POC ABG pH ABG pH POC ABG pCO2 POC ABG pO2 ABG pO2 ABG HCO3 ABG Base Excess ABG Hemoglobin Oxyhemoglobin Potassium Chloride Carbon Dioxide BUN Glucose POC Glucose 120 H 44 L 112 H Calcium Urine WBC (Auto) 01/10/17 01/10/17 01/10/17 04:30 04:30 05:41 WBC 24.1 H RBC 3.38 L Hgb 8.5 L Hct 26.0 L MCV 77 L MCH 25 L RDW 17.9 H Plt Count 474 H Lymph % (Auto) [place] % (Auto) Seg Neutrophils % Seg Neuts % (Manual) 88.0 H Lymphocytes % (Manual) 4.0 L Seg Neutrophils # Seg Neutrophils # Man 21.2 H Lymphocytes # (Manual) 1.0 L POC ABG pH ABG pH POC ABG pCO2 POC ABG pO2 ABG pO2 ABG HCO3 ABG Base Excess ABG Hemoglobin Oxyhemoglobin Potassium Chloride Carbon Dioxide 17 L BUN 27 H Glucose POC Glucose 68 L Calcium 7.5 L Urine WBC (Auto) 01/10/17 01/10/17 01/10/17 05:45 07:47 10:50 WBC RBC Hgb Hct MCV MCH RDW Plt Count Lymph % (Auto) [place] % (Auto) Seg Neutrophils % Seg Neuts % (Manual) Lymphocytes % (Manual) Seg Neutrophils # Seg Neutrophils # Man Lymphocytes # (Manual) POC ABG pH ABG pH POC ABG pCO2 26.6 L POC ABG pO2 207 H ABG pO2 ABG HCO3 ABG Base Excess ABG Hemoglobin Oxyhemoglobin Potassium Chloride Carbon Dioxide BUN Glucose POC Glucose 148 H 165 H Calcium Urine WBC (Auto) 01/10/17 01/10/17 01/10/17 13:41 20:20 21:39 WBC RBC Hgb Hct MCV MCH RDW Plt Count Lymph % (Auto) [place] % (Auto) Seg Neutrophils % Seg Neuts % (Manual) Lymphocytes % (Manual) Seg Neutrophils # Seg Neutrophils # Man Lymphocytes # (Manual) POC ABG pH ABG pH POC ABG pCO2 POC ABG pO2 ABG pO2 ABG HCO3 ABG Base Excess ABG Hemoglobin Oxyhemoglobin Potassium Chloride Carbon Dioxide BUN Glucose POC Glucose 114 H 150 H 175 H Calcium Urine WBC (Auto) 01/10/17 01/11/17 01/11/17 23:24 00:19 04:06 WBC RBC Hgb Hct MCV MCH RDW Plt Count Lymph % (Auto) [place] % (Auto) Seg Neutrophils % Seg Neuts % (Manual) Lymphocytes % (Manual) Seg Neutrophils # Seg Neutrophils # Man Lymphocytes # (Manual) POC ABG pH 7.463 H ABG pH POC ABG pCO2 26.2 L POC ABG pO2 185 H ABG pO2 ABG HCO3 ABG Base Excess ABG Hemoglobin Oxyhemoglobin Potassium Chloride Carbon Dioxide BUN Glucose POC Glucose 155 H 163 H Calcium Urine WBC (Auto) 01/11/17 01/11/17 01/11/17 05:20 05:20 06:21 WBC 15.2 H RBC 3.40 L Hgb 8.9 L Hct 26.3 L MCV 78 L MCH 26 L RDW 18.6 H Plt Count 462 H Lymph % (Auto) 13.2 L [place] % (Auto) Seg Neutrophils % 80.8 H Seg Neuts % (Manual) Lymphocytes % (Manual) Seg Neutrophils # 12.3 H Seg Neutrophils # Man Lymphocytes # (Manual) POC ABG pH ABG pH POC ABG pCO2 POC ABG pO2 ABG pO2 ABG HCO3 ABG Base Excess ABG Hemoglobin Oxyhemoglobin Potassium 3.4 L Chloride 111.5 H Carbon Dioxide 17 L BUN Glucose 147 H POC Glucose 139 H Calcium 8.0 L Urine WBC (Auto) 01/11/17 01/11/17 01/11/17 07:57 11:46 16:50 WBC RBC Hgb Hct MCV MCH RDW Plt Count Lymph % (Auto) [place] % (Auto) Seg Neutrophils % Seg Neuts % (Manual) Lymphocytes % (Manual) Seg Neutrophils # Seg Neutrophils # Man Lymphocytes # (Manual) POC ABG pH ABG pH POC ABG pCO2 POC ABG pO2 ABG pO2 ABG HCO3 ABG Base Excess ABG Hemoglobin Oxyhemoglobin Potassium Chloride Carbon Dioxide BUN Glucose POC Glucose 188 H 199 H 235 H Calcium Urine WBC (Auto) 01/11/17 01/12/17 01/12/17 23:15 05:02 06:56 WBC RBC Hgb Hct MCV MCH RDW Plt Count Lymph % (Auto) [place] % (Auto) Seg Neutrophils % Seg Neuts % (Manual) Lymphocytes % (Manual) Seg Neutrophils # Seg Neutrophils # Man Lymphocytes # (Manual) POC ABG pH ABG pH POC ABG pCO2 28.0 L POC ABG pO2 178 H ABG pO2 ABG HCO3 ABG Base Excess ABG Hemoglobin Oxyhemoglobin Potassium Chloride Carbon Dioxide BUN Glucose POC Glucose 155 H 119 H Calcium Urine WBC (Auto) 01/12/17 01/13/17 01/13/17 14:50 03:37 03:37 WBC RBC 3.61 L Hgb 9.3 L Hct 28.0 L MCV 78 L MCH 26 L RDW 18.2 H Plt Count Lymph % (Auto) [place] % (Auto) Seg Neutrophils % Seg Neuts % (Manual) Lymphocytes % (Manual) Seg Neutrophils # Seg Neutrophils # Man Lymphocytes # (Manual) POC ABG pH ABG pH POC ABG pCO2 POC ABG pO2 ABG pO2 ABG HCO3 ABG Base Excess ABG Hemoglobin Oxyhemoglobin Potassium Chloride 112.4 H Carbon Dioxide 19 L BUN Glucose 118 H POC Glucose 164 H Calcium 8.0 L Urine WBC (Auto) 01/13/17 01/13/17 01/13/17 04:26 06:15 11:50 WBC RBC Hgb Hct MCV MCH RDW Plt Count Lymph % (Auto) [place] % (Auto) Seg Neutrophils % Seg Neuts % (Manual) Lymphocytes % (Manual) Seg Neutrophils # Seg Neutrophils # Man Lymphocytes # (Manual) POC ABG pH 7.485 H ABG pH POC ABG pCO2 25.4 L POC ABG pO2 73 L ABG pO2 ABG HCO3 ABG Base Excess ABG Hemoglobin Oxyhemoglobin Potassium Chloride Carbon Dioxide BUN Glucose POC Glucose 116 H 171 H Calcium Urine WBC (Auto) 01/13/17 01/14/17 01/14/17 17:31 00:02 04:50 WBC RBC 3.32 L Hgb 8.5 L Hct 26.1 L MCV 79 L MCH 26 L RDW 18.2 H Plt Count Lymph % (Auto) [place] % (Auto) 9.0 H Seg Neutrophils % Seg Neuts % (Manual) Lymphocytes % (Manual) Seg Neutrophils # Seg Neutrophils # Man Lymphocytes # (Manual) POC ABG pH ABG pH POC ABG pCO2 POC ABG pO2 ABG pO2 ABG HCO3 ABG Base Excess ABG Hemoglobin Oxyhemoglobin Potassium Chloride Carbon Dioxide BUN Glucose POC Glucose 203 H 157 H Calcium Urine WBC (Auto) 01/14/17 01/14/17 01/14/17 04:50 05:10 11:27 WBC RBC Hgb Hct MCV MCH RDW Plt Count Lymph % (Auto) [place] % (Auto) Seg Neutrophils % Seg Neuts % (Manual) Lymphocytes % (Manual) Seg Neutrophils # Seg Neutrophils # Man Lymphocytes # (Manual) POC ABG pH ABG pH POC ABG pCO2 POC ABG pO2 ABG pO2 ABG HCO3 ABG Base Excess ABG Hemoglobin Oxyhemoglobin Potassium Chloride 112.5 H Carbon Dioxide BUN Glucose 149 H POC Glucose 176 H 147 H Calcium 8.1 L Urine WBC (Auto) 01/14/17 01/14/17 01/15/17 14:07 16:52 00:04 WBC RBC Hgb Hct MCV MCH RDW Plt Count Lymph % (Auto) [place] % (Auto) Seg Neutrophils % Seg Neuts % (Manual) Lymphocytes % (Manual) Seg Neutrophils # Seg Neutrophils # Man Lymphocytes # (Manual) POC ABG pH ABG pH POC ABG pCO2 POC ABG pO2 ABG pO2 ABG HCO3 ABG Base Excess ABG Hemoglobin Oxyhemoglobin Potassium Chloride Carbon Dioxide BUN Glucose POC Glucose 131 H 193 H Calcium Urine WBC (Auto) 53.0 H 01/15/17 01/15/17 01/15/17 05:26 11:49 17:47 WBC RBC Hgb Hct MCV MCH RDW Plt Count Lymph % (Auto) [place] % (Auto) Seg Neutrophils % Seg Neuts % (Manual) Lymphocytes % (Manual) Seg Neutrophils # Seg Neutrophils # Man Lymphocytes # (Manual) POC ABG pH ABG pH POC ABG pCO2 POC ABG pO2 ABG pO2 ABG HCO3 ABG Base Excess ABG Hemoglobin Oxyhemoglobin Potassium Chloride Carbon Dioxide BUN Glucose POC Glucose 215 H 121 H 211 H Calcium Urine WBC (Auto) 01/15/17 01/16/17 01/16/17 21:33 04:30 05:28 WBC RBC Hgb Hct MCV MCH RDW Plt Count Lymph % (Auto) [place] % (Auto) Seg Neutrophils % Seg Neuts % (Manual) Lymphocytes % (Manual) Seg Neutrophils # Seg Neutrophils # Man Lymphocytes # (Manual) POC ABG pH ABG pH 7.457 H POC ABG pCO2 POC ABG pO2 ABG pO2 55.1 L ABG HCO3 19.4 L ABG Base Excess -4.0 L ABG Hemoglobin 6.8 L Oxyhemoglobin 94.9 L Potassium Chloride Carbon Dioxide BUN Glucose POC Glucose 275 H 271 H Calcium Urine WBC (Auto) 01/16/17 01/16/17 01/17/17 13:45 21:39 04:10 WBC 4.4 L RBC 2.98 L Hgb 7.7 L Hct 23.3 L MCV 78 L MCH 26 L RDW 18.1 H Plt Count Lymph % (Auto) [place] % (Auto) Seg Neutrophils % Seg Neuts % (Manual) Lymphocytes % (Manual) Seg Neutrophils # Seg Neutrophils # Man Lymphocytes # (Manual) POC ABG pH ABG pH POC ABG pCO2 POC ABG pO2 ABG pO2 ABG HCO3 ABG Base Excess ABG Hemoglobin Oxyhemoglobin Potassium Chloride Carbon Dioxide BUN Glucose POC Glucose 236 H 258 H Calcium Urine WBC (Auto) 01/17/17 01/17/17 01/17/17 04:10 04:35 12:23 WBC RBC Hgb Hct MCV MCH RDW Plt Count Lymph % (Auto) [place] % (Auto) Seg Neutrophils % Seg Neuts % (Manual) Lymphocytes % (Manual) Seg Neutrophils # Seg Neutrophils # Man Lymphocytes # (Manual) POC ABG pH ABG pH POC ABG pCO2 POC ABG pO2 ABG pO2 160.3 H ABG HCO3 ABG Base Excess -2.3 L ABG Hemoglobin 7.9 L Oxyhemoglobin Potassium 3.3 L Chloride 108.7 H Carbon Dioxide 20 L BUN 8 L Glucose 202 H POC Glucose 321 H Calcium 7.6 L Urine WBC (Auto) 01/17/17 01/18/17 16:01 05:07 WBC RBC Hgb Hct MCV MCH RDW Plt Count Lymph % (Auto) [place] % (Auto) Seg Neutrophils % Seg Neuts % (Manual) Lymphocytes % (Manual) Seg Neutrophils # Seg Neutrophils # Man Lymphocytes # (Manual) POC ABG pH ABG pH POC ABG pCO2 POC ABG pO2 ABG pO2 ABG HCO3 ABG Base Excess ABG Hemoglobin Oxyhemoglobin Potassium Chloride Carbon Dioxide BUN Glucose POC Glucose 239 H 155 H Calcium Urine WBC (Auto)
[2017-01-18] MEDS: NORMODYNE PO SCH (09:55)
[2017-01-18] MEDS: LEVEMIR (NF) SUB-Q SCH (09:56)
[2017-01-18] MEDS: PEPCID PO SCH ×2 (09:56→21:54)
[2017-01-18] MEDS: HEPARIN SUB-Q SCH ×2 (09:57→21:55)
--- NOTE | 2017-01-18 11:58 | Event Note ---
Date: 01/18/17 ETHICS: A discussion and evaluation of the patient in the ICU with Dr. Horta ( pulmonary critical care), Dr. Parham (neurology) regarding the patient's plan of care was held. The ethical issue is whether it is appropriate to place a tracheostomy tube and PEG tube in a patient with no meaningful neurologic activity and no hope of recovery. Patient has no next of kin or guardian to assist in the decision-making process. Patient is currently a full code. In brief, the patient was found down surrounded by insulin syringes and profoundly hypoglycemic. His laboratory abnormalities have been corrected. CT of the brain/head demonstrates no correctable injury. He has remained neurologically deficient since arrival. Following a meeting of the Ethics committee, , recommendations are to change patient's CODE STATUS to allow natural and to place the patient in hospice without performing a tracheostomy or PEG tube placement.
--- NOTE | 2017-01-18 13:32 | Consultation ---
History of Present Illness - Reason for Consult Consult date: 01/18/17 consult note - History of Present Illness I was asked by attending to state as an independent note my assessment of neurological status.... patient is in permanent unresponsive state based on comprehensive neuro exam no evidence of potential for recovery I have written the opinion we should allow natural and not prolong suffering as this is unethical based on current accepted medical opinion the cause was insulin overdose and profound hpyoglycemia Past History Past Medical History: diabetes, hypertension, renal failure Past Surgical History: bowel surgery, Other (Left first toe,) Social history: single, Lives alone. denies: smoking, alcohol abuse, prescription drug abuse, IV drug use Family history: hypertension Medications and Allergies Allergies Allergy/AdvReac Type Severity Reaction Status Date / Time No Known Allergies Allergy Unverified 12/26/16 18:23 Home Medications Medication Instructions Recorded Confirmed Last Taken Type Insulin Detemir [Levemir] 12 units SUB-Q QHS #30 units 01/02/17 01/09/17 Unknown Rx Labetalol [Normodyne TAB] 200 mg PO BID #60 tablet 01/02/17 01/09/17 Unknown Rx Active Meds: Active Medications Acetaminophen (Tylenol) 650 mg FEEDTUBE Q6H PRN PRN Reason: Non Cardiac Pain Or Temp>101 Last Admin: 01/14/17 22:42 Dose: 650 mg Lipase/Protease/Amylase (Pancreaze Dr 10,500 Unit) 1 each FEEDTUBE PRN PRN PRN Reason: For Clogged Feeding Tube Dextrose (D50w (25gm) Syringe) 50 ml IV PRN PRN PRN Reason: Hypoglycemia Last Admin: 01/10/17 06:37 Dose: 50 ml Famotidine (Pepcid) 20 mg PO BID [facility]OLO Last Admin: 01/18/17 09:56 Dose: 20 mg Heparin Sodium (Porcine) (Heparin) 5,000 unit SUB-Q Q12HR [facility]O Last Admin: 01/18/17 09:57 Dose: 5,000 unit Hydralazine HCl (Apresoline) 10 mg IV Q4HR PRN PRN Reason: Hypertension Last Admin: 01/18/17 05:05 Dose: 10 mg Hydrophilic Ointment (Vaseline Lip Therapy) 1 applic TP Q2HR PRN PRN Reason: Dry Lips Insulin Aspart (Novolog) 0 units SUB-Q Q6HR PAOLO PRN Reason: Protocol Last Admin: 01/18/17 05:40 Dose: 2 units Insulin Detemir (Levemir) 10 units SUB-Q DAILY [facility] Last Admin: 01/18/17 09:56 Dose: 10 units Labetalol HCl (Normodyne) 200 mg PO BID [facility] Last Admin: 01/18/17 09:55 Dose: 200 mg Levothyroxine Sodium (Synthroid) 100 mcg PO DAILY@0600 [facility] Last Admin: 01/18/17 05:22 Dose: 100 mcg Multi-Ingred Cream/Lotion/Oil/Oint (Artificial Tears Ophth Oint) 1 applic OU Q4HR PRN PRN Reason: Dry Eye(s) Simple Syrup (Simple Syrup) 15 ml FEEDTUBE PRN PRN PRN Reason: Hypoglycemia Simple Syrup (Simple Syrup) 30 ml FEEDTUBE PRN PRN PRN Reason: Hypoglycemia Sodium Bicarbonate (Sodium Bicarbonate) 325 mg FEEDTUBE PRN PRN PRN Reason: For Clogged Feeding Tube Sodium Chloride (Nacl 0.9% 500 Ml) 500 ml IV DIRECT [facility] Exam - Constitutional Vitals: Temp Pulse Resp BP Pulse Ox 98 F 63 14 146/60 100 01/18/17 12:00 01/18/17 13:00 01/18/17 13:00 01/18/17 13:00 01/18/17 13:00 Results - Labs CBC & Chem 7: 01/17/17 04:10 01/17/17 04:10 Labs: Abnormal lab results 01/17/17 01/18/17 01/18/17 Range/Units 16:01 05:07 12:09 POC Glucose 239 H 155 H 203 H (70-105)
--- NOTE | 2017-01-18 13:55 | Progress Note ---
Assessment and Plan Assessment and plan: 51 YO Male with CKD,HTN, DM presents to ED for evaluation. Pt unable to provide history. Pt history taken from ED staff, and medical records. Pt found down and unresponsive by his neighbor, who subsequently called EMS. Upon arrival, patient found unresponsive on the floor with a serum glucose of 21, and covered with ants with insulin syringes around him and a bottle of atenolol which still had many pills remaining, patient has a known history of alcohol abuse and delirium tremens. The patient was administered D5 approximate 500 mls during transport without change in mental status/level of consciousness. Pt seen and evaluated in ED was was found to be unable to protect his airway. Pt intubated and placed on vent support. Pt found to have evidence of hypothyroidism. She was started on Synthroid. He has since been in the ICU. The patient continued to deteriorate. He is in this grade 4 coma, brain imaging does not show any reversible cause. The patient remains in a persistent vegetative states. Sepsis has been ruled out. early childhood services coordinator try to locate family, even spoke to the family who he lives with. They themselves were unaware of any family members. After ethics committee meeting on the patient. The decision was made to make him DO NOT RESUSCITATE and to transfer him to hospice. Given his very poor prognosis and poor likelihood of recovery. It was decided that was not his best interest to get trach and PEG. Therefore he'll be transferred to the hospice intubated. Diagnosis Hypoglycemic brain injury Persistent vegetative state Metabolic encephalopathy Hypoglycemia/hypothermia Acute respiratory failure mechanical ventilator greater than 96 hours Sepsis ruled out, UTI ruled out hyponatremia, Hypothyroidism DNR- awaiting hospice placement The high probability of a clinically significant, sudden or life threatening deterioration of the [neurologic, respiratory and CV] system(s) required my full and direct attention, intervention and personal management. The aggregate critical care time was [33] minutes. This time is in addition to time spent performing reported procedures but includes the following: [] Data Review and interpretation [] Patient assessment and monitoring of vital signs [] Documentation [] Medication orders and management History Interval history: patient remains comatose, no movement of extremities Hospitalist Physical - Physical exam Narrative exam: General: comatose HEENT: Moist mucous membranes, , no lymphadenopathy Neck: supple Cardiac: S1-S2 heard Lungs: mech ventilated breath sounds Abdomen: soft , nontender, nondistended, bowel sounds positive Extremities: no edema clubbing or cyanosis Skin: no rash or lesions Neurologic: No gag reflex, pupils minimally responsive, no response to deep painful stimuli - Constitutional Vitals: Temp Pulse Resp BP Pulse Ox 98 F 63 14 146/60 100 01/18/17 12:00 01/18/17 13:00 01/18/17 13:00 01/18/17 13:00 01/18/17 13:00 Results - Labs CBC & Chem 7: 01/17/17 04:10 01/17/17 04:10 Labs: Laboratory Last Values WBC 4.4 K/mm3 (4.5-11.0) L 01/17/17 04:10 RBC 2.98 M/mm3 (3.65-5.03) L 01/17/17 04:10 Hgb 7.7 gm/dl (11.8-15.2) L 01/17/17 04:10 Hct 23.3 % (35.5-45.6) L 01/17/17 04:10 MCV 78 fl (84-94) L 01/17/17 04:10 MCH 26 pg (28-32) L 01/17/17 04:10 MCHC 33 % (32-34) 01/17/17 04:10 RDW 18.1 % (13.2-15.2) H 01/17/17 04:10 Plt Count 281 K/mm3 (140-440) 01/17/17 04:10 Lymph % (Auto) 21.5 % (13.4-35.0) 01/14/17 04:50 [place] % (Auto) 9.0 % (0.0-7.3) H 01/14/17 04:50 Eos % (Auto) 0.6 % (0.0-4.3) 01/14/17 04:50 Baso % (Auto) 0.9 % (0.0-1.8) 01/14/17 04:50 Lymph # 1.4 K/mm3 (1.2-5.4) 01/14/17 04:50 [place] # 0.6 K/mm3 (0.0-0.8) 01/14/17 04:50 Eos # 0.0 K/mm3 (0.0-0.4) 01/14/17 04:50 Baso # 0.1 K/mm3 (0.0-0.1) 01/14/17 04:50 Add Manual Diff Complete 01/10/17 04:30 Total Counted 100 01/10/17 04:30 Seg Neutrophils % 68.0 % (40.0-70.0) 01/14/17 04:50 Seg Neuts % (Manual) 88.0 % (40.0-70.0) H 01/10/17 04:30 Band Neutrophils % 7.0 % 01/10/17 04:30 Lymphocytes % (Manual) 4.0 % (13.4-35.0) L 01/10/17 04:30 Reactive Lymphs % (Man) 0 % 01/10/17 04:30 Monocytes % (Manual) 1.0 % (0.0-7.3) 01/10/17 04:30 Eosinophils % (Manual) 0 % (0.0-4.3) 01/10/17 04:30 Basophils % (Manual) 0 % (0.0-1.8) 01/10/17 04:30 Metamyelocytes % 0 % 01/10/17 04:30 Myelocytes % 0 % 01/10/17 04:30 Promyelocytes % 0 % 01/10/17 04:30 Blast Cells % 0 % 01/10/17 04:30 Nucleated RBC % Not Reportable 01/10/17 04:30 Seg Neutrophils # 4.3 K/mm3 (1.8-7.7) 01/14/17 04:50 Seg Neutrophils # Man 21.2 K/mm3 (1.8-7.7) H 01/10/17 04:30 Band Neutrophils # 1.7 K/mm3 01/10/17 04:30 Lymphocytes # (Manual) 1.0 K/mm3 (1.2-5.4) L 01/10/17 04:30 Abs React Lymphs (Man) 0.0 K/mm3 01/10/17 04:30 Monocytes # (Manual) 0.2 K/mm3 (0.0-0.8) 01/10/17 04:30 Eosinophils # (Manual) 0.0 K/mm3 (0.0-0.4) 01/10/17 04:30 Basophils # (Manual) 0.0 K/mm3 (0.0-0.1) 01/10/17 04:30 Metamyelocytes # 0.0 K/mm3 01/10/17 04:30 Myelocytes # 0.0 K/mm3 01/10/17 04:30 Promyelocytes # 0.0 K/mm3 01/10/17 04:30 Blast Cells # 0.0 K/mm3 01/10/17 04:30 WBC Morphology Not Reportable 01/10/17 04:30 Hypersegmented Neuts Not Reportable 01/10/17 04:30 Hyposegmented Neuts Not Reportable 01/10/17 04:30 Hypogranular Neuts Not Reportable 01/10/17 04:30 Smudge Cells Not Reportable 01/10/17 04:30 Toxic Granulation Not Reportable 01/10/17 04:30 Toxic Vacuolation Not Reportable 01/10/17 04:30 Dohle Bodies Not Reportable 01/10/17 04:30 Pelger-Huet Anomaly Not Reportable 01/10/17 04:30 [place] Rods Not Reportable 01/10/17 04:30 Platelet Estimate Consistent w auto 01/10/17 04:30 Clumped Platelets Not Reportable 01/10/17 04:30 Plt Clumps, EDTA Not Reportable 01/10/17 04:30 Large Platelets Not Reportable 01/10/17 04:30 Giant Platelets Not Reportable 01/10/17 04:30 Platelet Satelliting Not Reportable 01/10/17 04:30 Plt Morphology Comment Not Reportable 01/10/17 04:30 RBC Morphology Not Reportable 01/10/17 04:30 Dimorphic RBCs Not Reportable 01/10/17 04:30 Polychromasia Not Reportable 01/10/17 04:30 Hypochromasia 1+ 01/10/17 04:30 Poikilocytosis Not Reportable 01/10/17 04:30 Anisocytosis Not Reportable 01/10/17 04:30 Microcytosis Not Reportable 01/10/17 04:30 Macrocytosis Not Reportable 01/10/17 04:30 Spherocytes Not Reportable 01/10/17 04:30 Pappenheimer Bodies Not Reportable 01/10/17 04:30 Sickle Cells Not Reportable 01/10/17 04:30 Target Cells Not Reportable 01/10/17 04:30 Tear Drop Cells Not Reportable 01/10/17 04:30 Ovalocytes Not Reportable 01/10/17 04:30 Helmet Cells Not Reportable 01/10/17 04:30 [place] Bodies Not Reportable 01/10/17 04:30 [place] Rings Not Reportable 01/10/17 04:30 [place] Cells Not Reportable 01/10/17 04:30 Bite Cells Not Reportable 01/10/17 04:30 Crenated Cell Not Reportable 01/10/17 04:30 Elliptocytes Not Reportable 01/10/17 04:30 Acanthocytes (Spur) Not Reportable 01/10/17 04:30 Rouleaux Not Reportable 01/10/17 04:30 Hemoglobin C Crystals Not Reportable 01/10/17 04:30 Schistocytes Not Reportable 01/10/17 04:30 Malaria parasites Not Reportable 01/10/17 04:30 [place] Bodies Not Reportable 01/10/17 04:30 Hem Pathologist Commnt No 01/10/17 04:30 PT 14.1 Sec. (12.2-14.9) 01/17/17 04:10 INR 1.04 (0.87-1.13) 01/17/17 04:10 APTT 36.6 Sec. (24.2-36.6) 01/17/17 04:10 POC ABG pH 7.485 (7.35-7.45) H 01/13/17 04:26 ABG pH 7.420 pH Units (7.350-7.450) 01/17/17 04:35 POC ABG pCO2 25.4 (35-45) L 01/13/17 04:26 ABG pCO2 34.5 mm Hg 01/17/17 04:35 POC ABG pO2 73 (80-105) L 01/13/17 04:26 ABG pO2 160.3 mm Hg (80.0-90.0) H 01/17/17 04:35 POC ABG HCO3 19.1 01/13/17 04:26 ABG HCO3 21.9 mmol/L (20.0-26.0) 01/17/17 04:35 POC ABG Total CO2 20 01/13/17 04:26 POC ABG O2 Sat 96 01/13/17 04:26 ABG O2 Saturation 99.0 % (95.0-99.0) 01/17/17 04:35 ABG O2 Content 11.1 (0.0-44) 01/17/17 04:35 POC ABG Base Excess -4 01/13/17 04:26 ABG Base Excess -2.3 mmol/L (-2.0-3.0) L 01/17/17 04:35 ABG Hemoglobin 7.9 gm/dl (14.0-18.0) L 01/17/17 04:35 ABG Carboxyhemoglobin 1.5 % (0.0-5.0) 01/17/17 04:35 ABG Methemoglobin 0.5 % (0.0-1.5) 01/17/17 04:35 VBG pH 7.284 (7.320-7.420) L 01/09/17 10:16 Oxyhemoglobin 97.1 % (95.0-99.0) 01/17/17 04:35 FiO2 30 % 01/17/17 04:35 Sodium 139 mmol/L (137-145) 01/17/17 04:10 Potassium 3.3 mmol/L (3.6-5.0) L 01/17/17 04:10 Chloride 108.7 mmol/L (98-107) H 01/17/17 04:10 Carbon Dioxide 20 mmol/L (22-30) L 01/17/17 04:10 Anion Gap 14 mmol/L 01/17/17 04:10 BUN 8 mg/dL (9-20) L 01/17/17 04:10 Creatinine 0.9 mg/dL (0.8-1.5) 01/17/17 04:10 Estimated GFR > 60 ml/min 01/17/17 04:10 BUN/Creatinine Ratio 9 % 01/17/17 04:10 Glucose 202 mg/dL (75-100) H 01/17/17 04:10 POC Glucose 203 (70-105) H 01/18/17 12:09 Lactic Acid 1.00 mmol/L (0.7-2.0) 01/09/17 10:16 Calcium 7.6 mg/dL (8.4-10.2) L 01/17/17 04:10 Magnesium 2.10 mg/dL (1.7-2.3) 01/09/17 10:16 Total Bilirubin 0.30 mg/dL (0.1-1.2) 01/09/17 10:16 AST 25 units/L (5-40) 01/09/17 10:16 ALT 17 units/L (7-56) 01/09/17 10:16 Alkaline Phosphatase 151 units/L (35-129) H 01/09/17 10:16 Ammonia 35.0 umol/L (25-60) 01/09/17 10:16 Total Creatine Kinase 135 units/L (55-170) 01/09/17 10:16 CK-MB (CK-2) 7.1 ng/mL (0.0-4.0) H 01/09/17 10:16 CK-MB (CK-2) Rel Index 5.2 (0-4) H 01/09/17 10:16 Troponin T < 0.010 ng/mL (0.00-0.029) 01/09/17 10:16 NT-Pro-B Natriuret Pep 602.9 pg/mL (0-900) 01/09/17 10:16 Total Protein 8.2 g/dL (6.3-8.2) 01/09/17 10:16 Albumin 3.3 g/dL (3.9-5) L 01/09/17 10:16 Albumin/Globulin Ratio 0.7 % 01/09/17 10:16 TSH 52.800 mlU/mL (0.270-4.200) H 01/09/17 10:16 Free T4 0.78 ng/dL (0.76-1.46) 01/09/17 10:16 Total Cortisol 54.8 mcg/dL () 01/09/17 16:19 Urine Color Yellow (Yellow) 01/14/17 14:07 Urine Turbidity Clear (Clear) 01/14/17 14:07 Urine pH 5.0 (5.0-7.0) 01/14/17 14:07 Ur Specific [place] 1.011 (1.003-1.030) 01/14/17 14:07 Urine Protein <15 mg/dl mg/dL (Negative) 01/14/17 14:07 Urine Glucose (UA) Neg mg/dL (Negative) 01/14/17 14:07 Urine Ketones Neg mg/dL (Negative) 01/14/17 14:07 Urine Blood Sm (Negative) 01/14/17 14:07 Urine Nitrite Neg (Negative) 01/14/17 14:07 Urine Bilirubin Neg (Negative) 01/14/17 14:07 Urine Urobilinogen < 2.0 mg/dL (<2.0) 01/14/17 14:07 Ur Leukocyte Esterase Lg (Negative) 01/14/17 14:07 Urine WBC (Auto) 53.0 /HPF (0.0-6.0) H 01/14/17 14:07 Urine RBC (Auto) 12.0 /HPF (0.0-6.0) 01/14/17 14:07 Urine Bacteria (Auto) 1+ /HPF (Negative) 01/09/17 10:23 Urine Mucus Few /HPF 01/14/17 14:07 Urine Yeast (Budding) 3+ /HPF 01/14/17 14:07 Salicylates < 0.3 mg/dL (2.8-20.0) L 01/09/17 10:16 Urine Opiates Screen Presumptive negative 01/09/17 10:23 Urine Methadone Screen Presumptive negative 01/09/17 10:23 Acetaminophen < 15.0 ug/mL (10.0-30.0) 01/09/17 10:16 Ur Barbiturates Screen Presumptive negative 01/09/17 10:23 Ur Phencyclidine Scrn Presumptive negative 01/09/17 10:23 Ur Amphetamines Screen Presumptive negative 01/09/17 10:23 U Benzodiazepines Scrn Presumptive negative 01/09/17 10:23 Urine Cocaine Screen Presumptive negative 01/09/17 10:23 U Marijuana (THC) Screen Presumptive negative 01/09/17 10:23 Drugs of Abuse Note Disclamer 01/09/17 10:23 Plasma/Serum Alcohol < 0.01 gm% (0-0.07) 01/09/17 10:16
[2017-01-19] MEDS: NORMODYNE PO SCH ×3 (01:33→21:48)
[2017-01-19] MEDS: SYNTHROID PO SCH (06:28)
[2017-01-19] MEDS: NOVOLOG SUB-Q SCH ×4 (06:32→17:26)
[2017-01-19] MEDS: HEPARIN SUB-Q SCH ×2 (10:04→21:48)
[2017-01-19] MEDS: PEPCID PO SCH ×2 (10:05→21:49)
[2017-01-19] MEDS: LEVEMIR (NF) SUB-Q SCH (10:05)
--- NOTE | 2017-01-19 11:38 | Progress Note ---
Assessment and Plan 51 y/o male found down, concern for sepsis and now encephalopathic requiring mechanical ventilation. 1. continue supportive care 2. Per CM, working on making patient a [place] of [place]. This could take months CCT 31 minutes. Subjective Date of service: 01/19/17 Principal diagnosis: Acute respiratory failure Interval history: No acute events. met with ethics at bedside yesterday and they left note in chart. Unfortunately, patient can not be accepted by hospice without someone to sign them in. Had to be placed back on the ventilator this am secondary to decrease in RR and [place] Volumes with the combo leading to poor minute ventilation Objective Vital Signs - 12hr 01/18/17 01/19/17 01/19/17 23:57 00:00 00:25 Temperature Pulse Rate 67 68 Respiratory 15 24 Rate Blood Pressure 146/67 154/69 O2 Sat by Pulse 100 100 100 Oximetry 01/19/17 01/19/17 01/19/17 01:00 01:33 02:00 Temperature Pulse Rate 69 69 67 Respiratory 16 13 Rate Blood Pressure 165/69 165/69 158/71 O2 Sat by Pulse 100 100 Oximetry 01/19/17 01/19/17 01/19/17 03:00 04:00 04:16 Temperature 99 F Pulse Rate 65 66 66 Respiratory 14 12 Rate Blood Pressure 149/71 148/69 156/66 O2 Sat by Pulse 100 100 100 Oximetry 01/19/17 01/19/17 01/19/17 05:01 06:00 07:01 Temperature Pulse Rate 66 64 71 Respiratory 12 16 Rate Blood Pressure 156/66 163/65 147/66 O2 Sat by Pulse 100 100 99 Oximetry 01/19/17 01/19/17 01/19/17 08:00 08:15 08:58 Temperature 98.4 F Pulse Rate 65 64 Respiratory 13 15 12 Rate Blood Pressure 138/66 136/65 O2 Sat by Pulse 100 100 100 Oximetry 01/19/17 01/19/17 01/19/17 09:00 10:00 10:05 Temperature Pulse Rate 64 66 69 Respiratory 12 14 Rate Blood Pressure 136/65 146/69 146/69 O2 Sat by Pulse 100 100 Oximetry 01/19/17 11:00 Temperature Pulse Rate 63 Respiratory 14 Rate Blood Pressure 142/67 O2 Sat by Pulse 100 Oximetry Constitutional: no acute distress, comatose, other (intubated, on vent) Eyes: non-icteric ENT: oropharynx moist Neck: supple, no JVD Effort: normal Ascultation: Bilateral: clear, diminished breath sounds Cardiovascular: regular rate and rhythm Gastrointestinal: normoactive bowel sounds, soft, non-tender, non-distended Integumentary: rash (lesions all over trunk/extremities (most appear to be scabs )) Extremities: no cyanosis, no edema, pink and warm Neurologic: non-focal exam, pupils equal and round, other (unresponsive, GCS 3) Psychiatric: other (unable to obtain) CBC and BMP: 01/17/17 04:10 01/17/17 04:10 ABG, PT/INR, D-dimer: ABG POC ABG pH 7.485 (7.35-7.45) H 01/13/17 04:26 ABG pH 7.420 pH Units (7.350-7.450) 01/17/17 04:35 POC ABG pCO2 25.4 (35-45) L 01/13/17 04:26 ABG pCO2 34.5 mm Hg 01/17/17 04:35 POC ABG pO2 73 (80-105) L 01/13/17 04:26 ABG pO2 160.3 mm Hg (80.0-90.0) H 01/17/17 04:35 POC ABG HCO3 19.1 01/13/17 04:26 POC ABG Total CO2 20 01/13/17 04:26 POC ABG O2 Sat 96 01/13/17 04:26 ABG O2 Saturation 99.0 % (95.0-99.0) 01/17/17 04:35 PT/INR, D-dimer PT 14.1 Sec. (12.2-14.9) 01/17/17 04:10 INR 1.04 (0.87-1.13) 01/17/17 04:10 Abnormal lab findings: Abnormal Labs 01/09/17 01/09/17 01/09/17 12:49 13:13 14:21 WBC RBC Hgb Hct MCV MCH RDW Plt Count Lymph % (Auto) [place] % (Auto) Seg Neutrophils % Seg Neuts % (Manual) Lymphocytes % (Manual) Seg Neutrophils # Seg Neutrophils # Man Lymphocytes # (Manual) POC ABG pH ABG pH POC ABG pCO2 POC ABG pO2 ABG pO2 ABG HCO3 ABG Base Excess ABG Hemoglobin Oxyhemoglobin Potassium Chloride Carbon Dioxide BUN Glucose POC Glucose < 40 L 128 H 65 L Calcium Urine WBC (Auto) 01/09/17 01/09/17 01/09/17 15:09 16:28 17:14 WBC RBC Hgb Hct MCV MCH RDW Plt Count Lymph % (Auto) [place] % (Auto) Seg Neutrophils % Seg Neuts % (Manual) Lymphocytes % (Manual) Seg Neutrophils # Seg Neutrophils # Man Lymphocytes # (Manual) POC ABG pH ABG pH POC ABG pCO2 POC ABG pO2 ABG pO2 ABG HCO3 ABG Base Excess ABG Hemoglobin Oxyhemoglobin Potassium Chloride Carbon Dioxide BUN Glucose POC Glucose 120 H 44 L 112 H Calcium Urine WBC (Auto) 01/10/17 01/10/17 01/10/17 04:30 04:30 05:41 WBC 24.1 H RBC 3.38 L Hgb 8.5 L Hct 26.0 L MCV 77 L MCH 25 L RDW 17.9 H Plt Count 474 H Lymph % (Auto) [place] % (Auto) Seg Neutrophils % Seg Neuts % (Manual) 88.0 H Lymphocytes % (Manual) 4.0 L Seg Neutrophils # Seg Neutrophils # Man 21.2 H Lymphocytes # (Manual) 1.0 L POC ABG pH ABG pH POC ABG pCO2 POC ABG pO2 ABG pO2 ABG HCO3 ABG Base Excess ABG Hemoglobin Oxyhemoglobin Potassium Chloride Carbon Dioxide 17 L BUN 27 H Glucose POC Glucose 68 L Calcium 7.5 L Urine WBC (Auto) 01/10/17 01/10/17 01/10/17 05:45 07:47 10:50 WBC RBC Hgb Hct MCV MCH RDW Plt Count Lymph % (Auto) [place] % (Auto) Seg Neutrophils % Seg Neuts % (Manual) Lymphocytes % (Manual) Seg Neutrophils # Seg Neutrophils # Man Lymphocytes # (Manual) POC ABG pH ABG pH POC ABG pCO2 26.6 L POC ABG pO2 207 H ABG pO2 ABG HCO3 ABG Base Excess ABG Hemoglobin Oxyhemoglobin Potassium Chloride Carbon Dioxide BUN Glucose POC Glucose 148 H 165 H Calcium Urine WBC (Auto) 01/10/17 01/10/17 01/10/17 13:41 20:20 21:39 WBC RBC Hgb Hct MCV MCH RDW Plt Count Lymph % (Auto) [place] % (Auto) Seg Neutrophils % Seg Neuts % (Manual) Lymphocytes % (Manual) Seg Neutrophils # Seg Neutrophils # Man Lymphocytes # (Manual) POC ABG pH ABG pH POC ABG pCO2 POC ABG pO2 ABG pO2 ABG HCO3 ABG Base Excess ABG Hemoglobin Oxyhemoglobin Potassium Chloride Carbon Dioxide BUN Glucose POC Glucose 114 H 150 H 175 H Calcium Urine WBC (Auto) 01/10/17 01/11/17 01/11/17 23:24 00:19 04:06 WBC RBC Hgb Hct MCV MCH RDW Plt Count Lymph % (Auto) [place] % (Auto) Seg Neutrophils % Seg Neuts % (Manual) Lymphocytes % (Manual) Seg Neutrophils # Seg Neutrophils # Man Lymphocytes # (Manual) POC ABG pH 7.463 H ABG pH POC ABG pCO2 26.2 L POC ABG pO2 185 H ABG pO2 ABG HCO3 ABG Base Excess ABG Hemoglobin Oxyhemoglobin Potassium Chloride Carbon Dioxide BUN Glucose POC Glucose 155 H 163 H Calcium Urine WBC (Auto) 01/11/17 01/11/17 01/11/17 05:20 05:20 06:21 WBC 15.2 H RBC 3.40 L Hgb 8.9 L Hct 26.3 L MCV 78 L MCH 26 L RDW 18.6 H Plt Count 462 H Lymph % (Auto) 13.2 L [place] % (Auto) Seg Neutrophils % 80.8 H Seg Neuts % (Manual) Lymphocytes % (Manual) Seg Neutrophils # 12.3 H Seg Neutrophils # Man Lymphocytes # (Manual) POC ABG pH ABG pH POC ABG pCO2 POC ABG pO2 ABG pO2 ABG HCO3 ABG Base Excess ABG Hemoglobin Oxyhemoglobin Potassium 3.4 L Chloride 111.5 H Carbon Dioxide 17 L BUN Glucose 147 H POC Glucose 139 H Calcium 8.0 L Urine WBC (Auto) 01/11/17 01/11/17 01/11/17 07:57 11:46 16:50 WBC RBC Hgb Hct MCV MCH RDW Plt Count Lymph % (Auto) [place] % (Auto) Seg Neutrophils % Seg Neuts % (Manual) Lymphocytes % (Manual) Seg Neutrophils # Seg Neutrophils # Man Lymphocytes # (Manual) POC ABG pH ABG pH POC ABG pCO2 POC ABG pO2 ABG pO2 ABG HCO3 ABG Base Excess ABG Hemoglobin Oxyhemoglobin Potassium Chloride Carbon Dioxide BUN Glucose POC Glucose 188 H 199 H 235 H Calcium Urine WBC (Auto) 01/11/17 01/12/17 01/12/17 23:15 05:02 06:56 WBC RBC Hgb Hct MCV MCH RDW Plt Count Lymph % (Auto) [place] % (Auto) Seg Neutrophils % Seg Neuts % (Manual) Lymphocytes % (Manual) Seg Neutrophils # Seg Neutrophils # Man Lymphocytes # (Manual) POC ABG pH ABG pH POC ABG pCO2 28.0 L POC ABG pO2 178 H ABG pO2 ABG HCO3 ABG Base Excess ABG Hemoglobin Oxyhemoglobin Potassium Chloride Carbon Dioxide BUN Glucose POC Glucose 155 H 119 H Calcium Urine WBC (Auto) 01/12/17 01/13/17 01/13/17 14:50 03:37 03:37 WBC RBC 3.61 L Hgb 9.3 L Hct 28.0 L MCV 78 L MCH 26 L RDW 18.2 H Plt Count Lymph % (Auto) [place] % (Auto) Seg Neutrophils % Seg Neuts % (Manual) Lymphocytes % (Manual) Seg Neutrophils # Seg Neutrophils # Man Lymphocytes # (Manual) POC ABG pH ABG pH POC ABG pCO2 POC ABG pO2 ABG pO2 ABG HCO3 ABG Base Excess ABG Hemoglobin Oxyhemoglobin Potassium Chloride 112.4 H Carbon Dioxide 19 L BUN Glucose 118 H POC Glucose 164 H Calcium 8.0 L Urine WBC (Auto) 01/13/17 01/13/17 01/13/17 04:26 06:15 11:50 WBC RBC Hgb Hct MCV MCH RDW Plt Count Lymph % (Auto) [place] % (Auto) Seg Neutrophils % Seg Neuts % (Manual) Lymphocytes % (Manual) Seg Neutrophils # Seg Neutrophils # Man Lymphocytes # (Manual) POC ABG pH 7.485 H ABG pH POC ABG pCO2 25.4 L POC ABG pO2 73 L ABG pO2 ABG HCO3 ABG Base Excess ABG Hemoglobin Oxyhemoglobin Potassium Chloride Carbon Dioxide BUN Glucose POC Glucose 116 H 171 H Calcium Urine WBC (Auto) 01/13/17 01/14/17 01/14/17 17:31 00:02 04:50 WBC RBC 3.32 L Hgb 8.5 L Hct 26.1 L MCV 79 L MCH 26 L RDW 18.2 H Plt Count Lymph % (Auto) [place] % (Auto) 9.0 H Seg Neutrophils % Seg Neuts % (Manual) Lymphocytes % (Manual) Seg Neutrophils # Seg Neutrophils # Man Lymphocytes # (Manual) POC ABG pH ABG pH POC ABG pCO2 POC ABG pO2 ABG pO2 ABG HCO3 ABG Base Excess ABG Hemoglobin Oxyhemoglobin Potassium Chloride Carbon Dioxide BUN Glucose POC Glucose 203 H 157 H Calcium Urine WBC (Auto) 01/14/17 01/14/17 01/14/17 04:50 05:10 11:27 WBC RBC Hgb Hct MCV MCH RDW Plt Count Lymph % (Auto) [place] % (Auto) Seg Neutrophils % Seg Neuts % (Manual) Lymphocytes % (Manual) Seg Neutrophils # Seg Neutrophils # Man Lymphocytes # (Manual) POC ABG pH ABG pH POC ABG pCO2 POC ABG pO2 ABG pO2 ABG HCO3 ABG Base Excess ABG Hemoglobin Oxyhemoglobin Potassium Chloride 112.5 H Carbon Dioxide BUN Glucose 149 H POC Glucose 176 H 147 H Calcium 8.1 L Urine WBC (Auto) 01/14/17 01/14/17 01/15/17 14:07 16:52 00:04 WBC RBC Hgb Hct MCV MCH RDW Plt Count Lymph % (Auto) [place] % (Auto) Seg Neutrophils % Seg Neuts % (Manual) Lymphocytes % (Manual) Seg Neutrophils # Seg Neutrophils # Man Lymphocytes # (Manual) POC ABG pH ABG pH POC ABG pCO2 POC ABG pO2 ABG pO2 ABG HCO3 ABG Base Excess ABG Hemoglobin Oxyhemoglobin Potassium Chloride Carbon Dioxide BUN Glucose POC Glucose 131 H 193 H Calcium Urine WBC (Auto) 53.0 H 01/15/17 01/15/17 01/15/17 05:26 11:49 17:47 WBC RBC Hgb Hct MCV MCH RDW Plt Count Lymph % (Auto) [place] % (Auto) Seg Neutrophils % Seg Neuts % (Manual) Lymphocytes % (Manual) Seg Neutrophils # Seg Neutrophils # Man Lymphocytes # (Manual) POC ABG pH ABG pH POC ABG pCO2 POC ABG pO2 ABG pO2 ABG HCO3 ABG Base Excess ABG Hemoglobin Oxyhemoglobin Potassium Chloride Carbon Dioxide BUN Glucose POC Glucose 215 H 121 H 211 H Calcium Urine WBC (Auto) 01/15/17 01/16/17 01/16/17 21:33 04:30 05:28 WBC RBC Hgb Hct MCV MCH RDW Plt Count Lymph % (Auto) [place] % (Auto) Seg Neutrophils % Seg Neuts % (Manual) Lymphocytes % (Manual) Seg Neutrophils # Seg Neutrophils # Man Lymphocytes # (Manual) POC ABG pH ABG pH 7.457 H POC ABG pCO2 POC ABG pO2 ABG pO2 55.1 L ABG HCO3 19.4 L ABG Base Excess -4.0 L ABG Hemoglobin 6.8 L Oxyhemoglobin 94.9 L Potassium Chloride Carbon Dioxide BUN Glucose POC Glucose 275 H 271 H Calcium Urine WBC (Auto) 01/16/17 01/16/17 01/17/17 13:45 21:39 04:10 WBC 4.4 L RBC 2.98 L Hgb 7.7 L Hct 23.3 L MCV 78 L MCH 26 L RDW 18.1 H Plt Count Lymph % (Auto) [place] % (Auto) Seg Neutrophils % Seg Neuts % (Manual) Lymphocytes % (Manual) Seg Neutrophils # Seg Neutrophils # Man Lymphocytes # (Manual) POC ABG pH ABG pH POC ABG pCO2 POC ABG pO2 ABG pO2 ABG HCO3 ABG Base Excess ABG Hemoglobin Oxyhemoglobin Potassium Chloride Carbon Dioxide BUN Glucose POC Glucose 236 H 258 H Calcium Urine WBC (Auto) 01/17/17 01/17/17 01/17/17 04:10 04:35 12:23 WBC RBC Hgb Hct MCV MCH RDW Plt Count Lymph % (Auto) [place] % (Auto) Seg Neutrophils % Seg Neuts % (Manual) Lymphocytes % (Manual) Seg Neutrophils # Seg Neutrophils # Man Lymphocytes # (Manual) POC ABG pH ABG pH POC ABG pCO2 POC ABG pO2 ABG pO2 160.3 H ABG HCO3 ABG Base Excess -2.3 L ABG Hemoglobin 7.9 L Oxyhemoglobin Potassium 3.3 L Chloride 108.7 H Carbon Dioxide 20 L BUN 8 L Glucose 202 H POC Glucose 321 H Calcium 7.6 L Urine WBC (Auto) 01/17/17 01/18/17 01/18/17 16:01 05:07 12:09 WBC RBC Hgb Hct MCV MCH RDW Plt Count Lymph % (Auto) [place] % (Auto) Seg Neutrophils % Seg Neuts % (Manual) Lymphocytes % (Manual) Seg Neutrophils # Seg Neutrophils # Man Lymphocytes # (Manual) POC ABG pH ABG pH POC ABG pCO2 POC ABG pO2 ABG pO2 ABG HCO3 ABG Base Excess ABG Hemoglobin Oxyhemoglobin Potassium Chloride Carbon Dioxide BUN Glucose POC Glucose 239 H 155 H 203 H Calcium Urine WBC (Auto) 01/18/17 01/18/17 01/19/17 17:54 23:43 04:28 WBC RBC Hgb Hct MCV MCH RDW Plt Count Lymph % (Auto) [place] % (Auto) Seg Neutrophils % Seg Neuts % (Manual) Lymphocytes % (Manual) Seg Neutrophils # Seg Neutrophils # Man Lymphocytes # (Manual) POC ABG pH ABG pH POC ABG pCO2 POC ABG pO2 ABG pO2 ABG HCO3 ABG Base Excess ABG Hemoglobin Oxyhemoglobin Potassium Chloride Carbon Dioxide BUN Glucose POC Glucose 132 H 125 H 182 H Calcium Urine WBC (Auto)
[2017-01-19] MEDS: SIMPLE SYRUP FEEDTUBE PRN (17:29)
[2017-01-20] MEDS: SYNTHROID PO SCH (06:11)
[2017-01-20] MEDS: NOVOLOG SUB-Q SCH ×4 (06:18→18:05)
[2017-01-20] MEDS: APRESOLINE IV PRN (07:01)
--- NOTE | 2017-01-20 08:48 | Consultation ---
History of Present Illness - Reason for Consult Consult date: 01/20/17 coma - History of Present Illness went over the EEG and found no evidence of hiher brain activity.... only minimal lower brain stem activity this sustains respirations etc otherwize no potential for recovery advise hospice compassionate care Past History Past Medical History: diabetes, hypertension, renal failure Past Surgical History: bowel surgery, Other (Left first toe,) Social history: single, Lives alone. denies: smoking, alcohol abuse, prescription drug abuse, IV drug use Family history: hypertension Medications and Allergies Allergies Allergy/AdvReac Type Severity Reaction Status Date / Time No Known Allergies Allergy Unverified 12/26/16 18:23 Home Medications Medication Instructions Recorded Confirmed Last Taken Type Insulin Detemir [Levemir] 12 units SUB-Q QHS #30 units 01/02/17 01/09/17 Unknown Rx Labetalol [Normodyne TAB] 200 mg PO BID #60 tablet 01/02/17 01/09/17 Unknown Rx Active Meds: Active Medications Acetaminophen (Tylenol) 650 mg FEEDTUBE Q6H PRN PRN Reason: Non Cardiac Pain Or Temp>101 Last Admin: 01/14/17 22:42 Dose: 650 mg Lipase/Protease/Amylase (Pancreaze Dr 10,500 Unit) 1 each FEEDTUBE PRN PRN PRN Reason: For Clogged Feeding Tube Dextrose (D50w (25gm) Syringe) 50 ml IV PRN PRN PRN Reason: Hypoglycemia Last Admin: 01/10/17 06:37 Dose: 50 ml Famotidine (Pepcid) 20 mg PO BID [facility] Last Admin: 01/19/17 21:49 Dose: 20 mg Heparin Sodium (Porcine) (Heparin) 5,000 unit SUB-Q Q12HR [facility] Last Admin: 01/19/17 21:48 Dose: 5,000 unit Hydralazine HCl (Apresoline) 10 mg IV Q4HR PRN PRN Reason: Hypertension Last Admin: 01/20/17 07:01 Dose: 10 mg Hydrophilic Ointment (Vaseline Lip Therapy) 1 applic TP Q2HR PRN PRN Reason: Dry Lips Insulin Aspart (Novolog) 0 units SUB-Q Q6HR PAOLO PRN Reason: Protocol Last Admin: 01/20/17 06:18 Dose: 2 units Insulin Detemir (Levemir) 5 units SUB-Q DAILY [facility] Labetalol HCl (Normodyne) 200 mg PO BID [facility] Last Admin: 01/19/17 21:48 Dose: 200 mg Levothyroxine Sodium (Synthroid) 100 mcg PO DAILY@0600 [facility] Last Admin: 01/20/17 06:11 Dose: 100 mcg Multi-Ingred Cream/Lotion/Oil/Oint (Artificial Tears Ophth Oint) 1 applic OU Q4HR PRN PRN Reason: Dry Eye(s) Simple Syrup (Simple Syrup) 15 ml FEEDTUBE PRN PRN PRN Reason: Hypoglycemia Last Admin: 01/19/17 17:29 Dose: 15 ml Simple Syrup (Simple Syrup) 30 ml FEEDTUBE PRN PRN PRN Reason: Hypoglycemia Sodium Bicarbonate (Sodium Bicarbonate) 325 mg FEEDTUBE PRN PRN PRN Reason: For Clogged Feeding Tube Sodium Chloride (Nacl 0.9% 500 Ml) 500 ml IV DIRECT [facility] Exam - Constitutional Vitals: Temp Pulse Resp BP Pulse Ox 98.3 F 73 14 121/63 100 01/20/17 07:35 01/20/17 08:09 01/20/17 08:00 01/20/17 08:09 01/20/17 08:09 Results - Labs CBC & Chem 7: 01/17/17 04:10 01/17/17 04:10 Labs: Abnormal lab results 01/19/17 01/19/17 01/20/17 Range/Units 12:11 17:23 00:12 POC Glucose 153 H 66 L 139 H (70-105) 01/20/17 Range/Units 05:44 POC Glucose 176 H (70-105)
--- NOTE | 2017-01-20 09:43 | Progress Note ---
Assessment and Plan 51 y/o male found down, concern for sepsis and now encephalopathic requiring mechanical ventilation. 1. continue supportive care 2. Spoke with ethics and they are working to obtain aguilera of patient for further management CCT 31 minutes. Subjective Date of service: 01/20/17 Principal diagnosis: Acute respiratory failure Interval history: No acute events. Remains unresponsive. Reviewed neurology note from yesterday and today Objective Vital Signs - 12hr 01/19/17 01/19/17 01/19/17 21:48 22:00 23:00 Temperature Pulse Rate 73 73 69 Respiratory 16 15 Rate Blood Pressure 144/72 154/75 145/70 O2 Sat by Pulse 100 100 Oximetry 01/20/17 01/20/17 01/20/17 00:00 00:30 01:01 Temperature 98.8 F Pulse Rate 70 73 71 Respiratory 13 14 Rate Blood Pressure 146/71 141/69 161/71 O2 Sat by Pulse 100 100 99 Oximetry 01/20/17 01/20/17 01/20/17 02:00 03:01 03:37 Temperature Pulse Rate 72 81 70 Respiratory 14 15 Rate Blood Pressure 153/77 151/78 174/81 O2 Sat by Pulse 99 100 99 Oximetry 01/20/17 01/20/17 01/20/17 04:00 05:00 06:00 Temperature 98.1 F Pulse Rate 69 66 70 Respiratory 15 13 14 Rate Blood Pressure 173/81 170/76 151/72 O2 Sat by Pulse 100 100 100 Oximetry 01/20/17 01/20/17 01/20/17 07:00 07:01 07:33 Temperature Pulse Rate 67 69 Respiratory 14 13 Rate Blood Pressure 161/71 161/71 O2 Sat by Pulse 100 100 Oximetry 01/20/17 01/20/17 01/20/17 07:35 08:00 08:09 Temperature 98.3 F Pulse Rate 73 73 Respiratory 14 Rate Blood Pressure 121/63 121/63 O2 Sat by Pulse 98 100 Oximetry 01/20/17 09:00 Temperature Pulse Rate 75 Respiratory 13 Rate Blood Pressure 93/45 O2 Sat by Pulse 98 Oximetry Constitutional: no acute distress, comatose, other (intubated, on vent) Eyes: non-icteric ENT: oropharynx moist Neck: supple, no JVD Effort: normal Ascultation: Bilateral: clear, diminished breath sounds Cardiovascular: regular rate and rhythm Gastrointestinal: normoactive bowel sounds, soft, non-tender, non-distended Integumentary: rash (lesions all over trunk/extremities (most appear to be scabs )) Extremities: no cyanosis, no edema, pink and warm Neurologic: non-focal exam, pupils equal and round, other (unresponsive, GCS 3) Psychiatric: other (unable to obtain) CBC and BMP: 01/17/17 04:10 01/17/17 04:10 ABG, PT/INR, D-dimer: ABG POC ABG pH 7.485 (7.35-7.45) H 01/13/17 04:26 ABG pH 7.420 pH Units (7.350-7.450) 01/17/17 04:35 POC ABG pCO2 25.4 (35-45) L 01/13/17 04:26 ABG pCO2 34.5 mm Hg 01/17/17 04:35 POC ABG pO2 73 (80-105) L 01/13/17 04:26 ABG pO2 160.3 mm Hg (80.0-90.0) H 01/17/17 04:35 POC ABG HCO3 19.1 01/13/17 04:26 POC ABG Total CO2 20 01/13/17 04:26 POC ABG O2 Sat 96 01/13/17 04:26 ABG O2 Saturation 99.0 % (95.0-99.0) 01/17/17 04:35 PT/INR, D-dimer PT 14.1 Sec. (12.2-14.9) 01/17/17 04:10 INR 1.04 (0.87-1.13) 01/17/17 04:10 Abnormal lab findings: Abnormal Labs 01/09/17 01/09/17 01/09/17 12:49 13:13 14:21 WBC RBC Hgb Hct MCV MCH RDW Plt Count Lymph % (Auto) [place] % (Auto) Seg Neutrophils % Seg Neuts % (Manual) Lymphocytes % (Manual) Seg Neutrophils # Seg Neutrophils # Man Lymphocytes # (Manual) POC ABG pH ABG pH POC ABG pCO2 POC ABG pO2 ABG pO2 ABG HCO3 ABG Base Excess ABG Hemoglobin Oxyhemoglobin Potassium Chloride Carbon Dioxide BUN Glucose POC Glucose < 40 L 128 H 65 L Calcium Urine WBC (Auto) 01/09/17 01/09/17 01/09/17 15:09 16:28 17:14 WBC RBC Hgb Hct MCV MCH RDW Plt Count Lymph % (Auto) [place] % (Auto) Seg Neutrophils % Seg Neuts % (Manual) Lymphocytes % (Manual) Seg Neutrophils # Seg Neutrophils # Man Lymphocytes # (Manual) POC ABG pH ABG pH POC ABG pCO2 POC ABG pO2 ABG pO2 ABG HCO3 ABG Base Excess ABG Hemoglobin Oxyhemoglobin Potassium Chloride Carbon Dioxide BUN Glucose POC Glucose 120 H 44 L 112 H Calcium Urine WBC (Auto) 01/10/17 01/10/17 01/10/17 04:30 04:30 05:41 WBC 24.1 H RBC 3.38 L Hgb 8.5 L Hct 26.0 L MCV 77 L MCH 25 L RDW 17.9 H Plt Count 474 H Lymph % (Auto) [place] % (Auto) Seg Neutrophils % Seg Neuts % (Manual) 88.0 H Lymphocytes % (Manual) 4.0 L Seg Neutrophils # Seg Neutrophils # Man 21.2 H Lymphocytes # (Manual) 1.0 L POC ABG pH ABG pH POC ABG pCO2 POC ABG pO2 ABG pO2 ABG HCO3 ABG Base Excess ABG Hemoglobin Oxyhemoglobin Potassium Chloride Carbon Dioxide 17 L BUN 27 H Glucose POC Glucose 68 L Calcium 7.5 L Urine WBC (Auto) 01/10/17 01/10/17 01/10/17 05:45 07:47 10:50 WBC RBC Hgb Hct MCV MCH RDW Plt Count Lymph % (Auto) [place] % (Auto) Seg Neutrophils % Seg Neuts % (Manual) Lymphocytes % (Manual) Seg Neutrophils # Seg Neutrophils # Man Lymphocytes # (Manual) POC ABG pH ABG pH POC ABG pCO2 26.6 L POC ABG pO2 207 H ABG pO2 ABG HCO3 ABG Base Excess ABG Hemoglobin Oxyhemoglobin Potassium Chloride Carbon Dioxide BUN Glucose POC Glucose 148 H 165 H Calcium Urine WBC (Auto) 01/10/17 01/10/17 01/10/17 13:41 20:20 21:39 WBC RBC Hgb Hct MCV MCH RDW Plt Count Lymph % (Auto) [place] % (Auto) Seg Neutrophils % Seg Neuts % (Manual) Lymphocytes % (Manual) Seg Neutrophils # Seg Neutrophils # Man Lymphocytes # (Manual) POC ABG pH ABG pH POC ABG pCO2 POC ABG pO2 ABG pO2 ABG HCO3 ABG Base Excess ABG Hemoglobin Oxyhemoglobin Potassium Chloride Carbon Dioxide BUN Glucose POC Glucose 114 H 150 H 175 H Calcium Urine WBC (Auto) 01/10/17 01/11/17 01/11/17 23:24 00:19 04:06 WBC RBC Hgb Hct MCV MCH RDW Plt Count Lymph % (Auto) [place] % (Auto) Seg Neutrophils % Seg Neuts % (Manual) Lymphocytes % (Manual) Seg Neutrophils # Seg Neutrophils # Man Lymphocytes # (Manual) POC ABG pH 7.463 H ABG pH POC ABG pCO2 26.2 L POC ABG pO2 185 H ABG pO2 ABG HCO3 ABG Base Excess ABG Hemoglobin Oxyhemoglobin Potassium Chloride Carbon Dioxide BUN Glucose POC Glucose 155 H 163 H Calcium Urine WBC (Auto) 01/11/17 01/11/17 01/11/17 05:20 05:20 06:21 WBC 15.2 H RBC 3.40 L Hgb 8.9 L Hct 26.3 L MCV 78 L MCH 26 L RDW 18.6 H Plt Count 462 H Lymph % (Auto) 13.2 L [place] % (Auto) Seg Neutrophils % 80.8 H Seg Neuts % (Manual) Lymphocytes % (Manual) Seg Neutrophils # 12.3 H Seg Neutrophils # Man Lymphocytes # (Manual) POC ABG pH ABG pH POC ABG pCO2 POC ABG pO2 ABG pO2 ABG HCO3 ABG Base Excess ABG Hemoglobin Oxyhemoglobin Potassium 3.4 L Chloride 111.5 H Carbon Dioxide 17 L BUN Glucose 147 H POC Glucose 139 H Calcium 8.0 L Urine WBC (Auto) 01/11/17 01/11/17 01/11/17 07:57 11:46 16:50 WBC RBC Hgb Hct MCV MCH RDW Plt Count Lymph % (Auto) [place] % (Auto) Seg Neutrophils % Seg Neuts % (Manual) Lymphocytes % (Manual) Seg Neutrophils # Seg Neutrophils # Man Lymphocytes # (Manual) POC ABG pH ABG pH POC ABG pCO2 POC ABG pO2 ABG pO2 ABG HCO3 ABG Base Excess ABG Hemoglobin Oxyhemoglobin Potassium Chloride Carbon Dioxide BUN Glucose POC Glucose 188 H 199 H 235 H Calcium Urine WBC (Auto) 01/11/17 01/12/17 01/12/17 23:15 05:02 06:56 WBC RBC Hgb Hct MCV MCH RDW Plt Count Lymph % (Auto) [place] % (Auto) Seg Neutrophils % Seg Neuts % (Manual) Lymphocytes % (Manual) Seg Neutrophils # Seg Neutrophils # Man Lymphocytes # (Manual) POC ABG pH ABG pH POC ABG pCO2 28.0 L POC ABG pO2 178 H ABG pO2 ABG HCO3 ABG Base Excess ABG Hemoglobin Oxyhemoglobin Potassium Chloride Carbon Dioxide BUN Glucose POC Glucose 155 H 119 H Calcium Urine WBC (Auto) 01/12/17 01/13/17 01/13/17 14:50 03:37 03:37 WBC RBC 3.61 L Hgb 9.3 L Hct 28.0 L MCV 78 L MCH 26 L RDW 18.2 H Plt Count Lymph % (Auto) [place] % (Auto) Seg Neutrophils % Seg Neuts % (Manual) Lymphocytes % (Manual) Seg Neutrophils # Seg Neutrophils # Man Lymphocytes # (Manual) POC ABG pH ABG pH POC ABG pCO2 POC ABG pO2 ABG pO2 ABG HCO3 ABG Base Excess ABG Hemoglobin Oxyhemoglobin Potassium Chloride 112.4 H Carbon Dioxide 19 L BUN Glucose 118 H POC Glucose 164 H Calcium 8.0 L Urine WBC (Auto) 01/13/17 01/13/17 01/13/17 04:26 06:15 11:50 WBC RBC Hgb Hct MCV MCH RDW Plt Count Lymph % (Auto) [place] % (Auto) Seg Neutrophils % Seg Neuts % (Manual) Lymphocytes % (Manual) Seg Neutrophils # Seg Neutrophils # Man Lymphocytes # (Manual) POC ABG pH 7.485 H ABG pH POC ABG pCO2 25.4 L POC ABG pO2 73 L ABG pO2 ABG HCO3 ABG Base Excess ABG Hemoglobin Oxyhemoglobin Potassium Chloride Carbon Dioxide BUN Glucose POC Glucose 116 H 171 H Calcium Urine WBC (Auto) 01/13/17 01/14/17 01/14/17 17:31 00:02 04:50 WBC RBC 3.32 L Hgb 8.5 L Hct 26.1 L MCV 79 L MCH 26 L RDW 18.2 H Plt Count Lymph % (Auto) [place] % (Auto) 9.0 H Seg Neutrophils % Seg Neuts % (Manual) Lymphocytes % (Manual) Seg Neutrophils # Seg Neutrophils # Man Lymphocytes # (Manual) POC ABG pH ABG pH POC ABG pCO2 POC ABG pO2 ABG pO2 ABG HCO3 ABG Base Excess ABG Hemoglobin Oxyhemoglobin Potassium Chloride Carbon Dioxide BUN Glucose POC Glucose 203 H 157 H Calcium Urine WBC (Auto) 01/14/17 01/14/17 01/14/17 04:50 05:10 11:27 WBC RBC Hgb Hct MCV MCH RDW Plt Count Lymph % (Auto) [place] % (Auto) Seg Neutrophils % Seg Neuts % (Manual) Lymphocytes % (Manual) Seg Neutrophils # Seg Neutrophils # Man Lymphocytes # (Manual) POC ABG pH ABG pH POC ABG pCO2 POC ABG pO2 ABG pO2 ABG HCO3 ABG Base Excess ABG Hemoglobin Oxyhemoglobin Potassium Chloride 112.5 H Carbon Dioxide BUN Glucose 149 H POC Glucose 176 H 147 H Calcium 8.1 L Urine WBC (Auto) 01/14/17 01/14/17 01/15/17 14:07 16:52 00:04 WBC RBC Hgb Hct MCV MCH RDW Plt Count Lymph % (Auto) [place] % (Auto) Seg Neutrophils % Seg Neuts % (Manual) Lymphocytes % (Manual) Seg Neutrophils # Seg Neutrophils # Man Lymphocytes # (Manual) POC ABG pH ABG pH POC ABG pCO2 POC ABG pO2 ABG pO2 ABG HCO3 ABG Base Excess ABG Hemoglobin Oxyhemoglobin Potassium Chloride Carbon Dioxide BUN Glucose POC Glucose 131 H 193 H Calcium Urine WBC (Auto) 53.0 H 01/15/17 01/15/17 01/15/17 05:26 11:49 17:47 WBC RBC Hgb Hct MCV MCH RDW Plt Count Lymph % (Auto) [place] % (Auto) Seg Neutrophils % Seg Neuts % (Manual) Lymphocytes % (Manual) Seg Neutrophils # Seg Neutrophils # Man Lymphocytes # (Manual) POC ABG pH ABG pH POC ABG pCO2 POC ABG pO2 ABG pO2 ABG HCO3 ABG Base Excess ABG Hemoglobin Oxyhemoglobin Potassium Chloride Carbon Dioxide BUN Glucose POC Glucose 215 H 121 H 211 H Calcium Urine WBC (Auto) 01/15/17 01/16/17 01/16/17 21:33 04:30 05:28 WBC RBC Hgb Hct MCV MCH RDW Plt Count Lymph % (Auto) [place] % (Auto) Seg Neutrophils % Seg Neuts % (Manual) Lymphocytes % (Manual) Seg Neutrophils # Seg Neutrophils # Man Lymphocytes # (Manual) POC ABG pH ABG pH 7.457 H POC ABG pCO2 POC ABG pO2 ABG pO2 55.1 L ABG HCO3 19.4 L ABG Base Excess -4.0 L ABG Hemoglobin 6.8 L Oxyhemoglobin 94.9 L Potassium Chloride Carbon Dioxide BUN Glucose POC Glucose 275 H 271 H Calcium Urine WBC (Auto) 01/16/17 01/16/17 01/17/17 13:45 21:39 04:10 WBC 4.4 L RBC 2.98 L Hgb 7.7 L Hct 23.3 L MCV 78 L MCH 26 L RDW 18.1 H Plt Count Lymph % (Auto) [place] % (Auto) Seg Neutrophils % Seg Neuts % (Manual) Lymphocytes % (Manual) Seg Neutrophils # Seg Neutrophils # Man Lymphocytes # (Manual) POC ABG pH ABG pH POC ABG pCO2 POC ABG pO2 ABG pO2 ABG HCO3 ABG Base Excess ABG Hemoglobin Oxyhemoglobin Potassium Chloride Carbon Dioxide BUN Glucose POC Glucose 236 H 258 H Calcium Urine WBC (Auto) 01/17/17 01/17/17 01/17/17 04:10 04:35 12:23 WBC RBC Hgb Hct MCV MCH RDW Plt Count Lymph % (Auto) [place] % (Auto) Seg Neutrophils % Seg Neuts % (Manual) Lymphocytes % (Manual) Seg Neutrophils # Seg Neutrophils # Man Lymphocytes # (Manual) POC ABG pH ABG pH POC ABG pCO2 POC ABG pO2 ABG pO2 160.3 H ABG HCO3 ABG Base Excess -2.3 L ABG Hemoglobin 7.9 L Oxyhemoglobin Potassium 3.3 L Chloride 108.7 H Carbon Dioxide 20 L BUN 8 L Glucose 202 H POC Glucose 321 H Calcium 7.6 L Urine WBC (Auto) 01/17/17 01/18/17 01/18/17 16:01 05:07 12:09 WBC RBC Hgb Hct MCV MCH RDW Plt Count Lymph % (Auto) [place] % (Auto) Seg Neutrophils % Seg Neuts % (Manual) Lymphocytes % (Manual) Seg Neutrophils # Seg Neutrophils # Man Lymphocytes # (Manual) POC ABG pH ABG pH POC ABG pCO2 POC ABG pO2 ABG pO2 ABG HCO3 ABG Base Excess ABG Hemoglobin Oxyhemoglobin Potassium Chloride Carbon Dioxide BUN Glucose POC Glucose 239 H 155 H 203 H Calcium Urine WBC (Auto) 01/18/17 01/18/17 01/19/17 17:54 23:43 04:28 WBC RBC Hgb Hct MCV MCH RDW Plt Count Lymph % (Auto) [place] % (Auto) Seg Neutrophils % Seg Neuts % (Manual) Lymphocytes % (Manual) Seg Neutrophils # Seg Neutrophils # Man Lymphocytes # (Manual) POC ABG pH ABG pH POC ABG pCO2 POC ABG pO2 ABG pO2 ABG HCO3 ABG Base Excess ABG Hemoglobin Oxyhemoglobin Potassium Chloride Carbon Dioxide BUN Glucose POC Glucose 132 H 125 H 182 H Calcium Urine WBC (Auto) 01/19/17 01/19/17 01/20/17 12:11 17:23 00:12 WBC RBC Hgb Hct MCV MCH RDW Plt Count Lymph % (Auto) [place] % (Auto) Seg Neutrophils % Seg Neuts % (Manual) Lymphocytes % (Manual) Seg Neutrophils # Seg Neutrophils # Man Lymphocytes # (Manual) POC ABG pH ABG pH POC ABG pCO2 POC ABG pO2 ABG pO2 ABG HCO3 ABG Base Excess ABG Hemoglobin Oxyhemoglobin Potassium Chloride Carbon Dioxide BUN Glucose POC Glucose 153 H 66 L 139 H Calcium Urine WBC (Auto) 01/20/17 05:44 WBC RBC Hgb Hct MCV MCH RDW Plt Count Lymph % (Auto) [place] % (Auto) Seg Neutrophils % Seg Neuts % (Manual) Lymphocytes % (Manual) Seg Neutrophils # Seg Neutrophils # Man Lymphocytes # (Manual) POC ABG pH ABG pH POC ABG pCO2 POC ABG pO2 ABG pO2 ABG HCO3 ABG Base Excess ABG Hemoglobin Oxyhemoglobin Potassium Chloride Carbon Dioxide BUN Glucose POC Glucose 176 H Calcium Urine WBC (Auto)
[2017-01-20] MEDS: LEVEMIR (NF) SUB-Q SCH (10:10)
[2017-01-20] MEDS: HEPARIN SUB-Q SCH ×2 (10:10→21:48)
[2017-01-20] MEDS: PEPCID PO SCH ×2 (10:10→21:49)
[2017-01-20] MEDS: NORMODYNE PO SCH ×2 (13:35→21:49)
[2017-01-21] MEDS: NOVOLOG SUB-Q SCH ×4 (00:30→18:00)
[2017-01-21] MEDS: SYNTHROID PO SCH (05:34)
--- NOTE | 2017-01-21 08:26 | Progress Note ---
Assessment and Plan 51 y/o male found down, concern for sepsis and now encephalopathic requiring mechanical ventilation. No New recs 1. continue supportive care 2. Spoke with ethics and they are working to obtain [place] of patient for further management CCT 31 minutes. Subjective Date of service: 01/21/17 Principal diagnosis: Acute respiratory failure Interval history: No acute events. Remains unresponsive. Still no family found. Awaiting guardianship. Objective Vital Signs - 12hr 01/20/17 01/20/17 01/20/17 21:00 21:15 21:49 Temperature Pulse Rate 73 71 73 Respiratory 15 12 Rate Blood Pressure 142/67 142/67 121/67 O2 Sat by Pulse 99 99 Oximetry 01/20/17 01/20/17 01/20/17 22:00 23:00 23:51 Temperature Pulse Rate 74 72 73 Respiratory 15 13 Rate Blood Pressure 126/70 128/71 126/70 O2 Sat by Pulse 98 98 100 Oximetry 01/21/17 01/21/17 01/21/17 00:00 01:00 02:00 Temperature 99.0 F Pulse Rate 74 74 76 Respiratory 12 12 12 Rate Blood Pressure 137/72 134/68 125/71 O2 Sat by Pulse 98 97 99 Oximetry 01/21/17 01/21/17 01/21/17 03:01 04:00 04:10 Temperature 98.7 F Pulse Rate 69 69 68 Respiratory 12 12 Rate Blood Pressure 95/59 117/70 117/70 O2 Sat by Pulse 94 100 100 Oximetry 01/21/17 01/21/17 01/21/17 05:00 06:00 07:20 Temperature Pulse Rate 66 64 70 Respiratory 13 12 15 Rate Blood Pressure 149/80 146/76 118/22 O2 Sat by Pulse 100 100 98 Oximetry 01/21/17 07:49 Temperature 97.6 F Pulse Rate Respiratory Rate Blood Pressure O2 Sat by Pulse Oximetry Constitutional: no acute distress, comatose, other (intubated, on vent) Eyes: non-icteric ENT: oropharynx moist Neck: supple, no JVD Effort: normal Ascultation: Bilateral: clear, diminished breath sounds Cardiovascular: regular rate and rhythm Gastrointestinal: normoactive bowel sounds, soft, non-tender, non-distended Integumentary: rash (lesions all over trunk/extremities (most appear to be scabs )) Extremities: no cyanosis, no edema, pink and warm Neurologic: non-focal exam, pupils equal and round, other (unresponsive, GCS 3) Psychiatric: other (unable to obtain) CBC and BMP: 01/17/17 04:10 01/17/17 04:10 ABG, PT/INR, D-dimer: ABG POC ABG pH 7.485 (7.35-7.45) H 01/13/17 04:26 ABG pH 7.420 pH Units (7.350-7.450) 01/17/17 04:35 POC ABG pCO2 25.4 (35-45) L 01/13/17 04:26 ABG pCO2 34.5 mm Hg 01/17/17 04:35 POC ABG pO2 73 (80-105) L 01/13/17 04:26 ABG pO2 160.3 mm Hg (80.0-90.0) H 01/17/17 04:35 POC ABG HCO3 19.1 01/13/17 04:26 POC ABG Total CO2 20 01/13/17 04:26 POC ABG O2 Sat 96 01/13/17 04:26 ABG O2 Saturation 99.0 % (95.0-99.0) 01/17/17 04:35 PT/INR, D-dimer PT 14.1 Sec. (12.2-14.9) 01/17/17 04:10 INR 1.04 (0.87-1.13) 01/17/17 04:10 Abnormal lab findings: Abnormal Labs 01/09/17 01/09/17 01/09/17 12:49 13:13 14:21 WBC RBC Hgb Hct MCV MCH RDW Plt Count Lymph % (Auto) Park % (Auto) Seg Neutrophils % Seg Neuts % (Manual) Lymphocytes % (Manual) Seg Neutrophils # Seg Neutrophils # Man Lymphocytes # (Manual) POC ABG pH ABG pH POC ABG pCO2 POC ABG pO2 ABG pO2 ABG HCO3 ABG Base Excess ABG Hemoglobin Oxyhemoglobin Potassium Chloride Carbon Dioxide BUN Glucose POC Glucose < 40 L 128 H 65 L Calcium Urine WBC (Auto) 01/09/17 01/09/17 01/09/17 15:09 16:28 17:14 WBC RBC Hgb Hct MCV MCH RDW Plt Count Lymph % (Auto) Park % (Auto) Seg Neutrophils % Seg Neuts % (Manual) Lymphocytes % (Manual) Seg Neutrophils # Seg Neutrophils # Man Lymphocytes # (Manual) POC ABG pH ABG pH POC ABG pCO2 POC ABG pO2 ABG pO2 ABG HCO3 ABG Base Excess ABG Hemoglobin Oxyhemoglobin Potassium Chloride Carbon Dioxide BUN Glucose POC Glucose 120 H 44 L 112 H Calcium Urine WBC (Auto) 01/10/17 01/10/17 01/10/17 04:30 04:30 05:41 WBC 24.1 H RBC 3.38 L Hgb 8.5 L Hct 26.0 L MCV 77 L MCH 25 L RDW 17.9 H Plt Count 474 H Lymph % (Auto) Park % (Auto) Seg Neutrophils % Seg Neuts % (Manual) 88.0 H Lymphocytes % (Manual) 4.0 L Seg Neutrophils # Seg Neutrophils # Man 21.2 H Lymphocytes # (Manual) 1.0 L POC ABG pH ABG pH POC ABG pCO2 POC ABG pO2 ABG pO2 ABG HCO3 ABG Base Excess ABG Hemoglobin Oxyhemoglobin Potassium Chloride Carbon Dioxide 17 L BUN 27 H Glucose POC Glucose 68 L Calcium 7.5 L Urine WBC (Auto) 01/10/17 01/10/17 01/10/17 05:45 07:47 10:50 WBC RBC Hgb Hct MCV MCH RDW Plt Count Lymph % (Auto) Park % (Auto) Seg Neutrophils % Seg Neuts % (Manual) Lymphocytes % (Manual) Seg Neutrophils # Seg Neutrophils # Man Lymphocytes # (Manual) POC ABG pH ABG pH POC ABG pCO2 26.6 L POC ABG pO2 207 H ABG pO2 ABG HCO3 ABG Base Excess ABG Hemoglobin Oxyhemoglobin Potassium Chloride Carbon Dioxide BUN Glucose POC Glucose 148 H 165 H Calcium Urine WBC (Auto) 01/10/17 01/10/17 01/10/17 13:41 20:20 21:39 WBC RBC Hgb Hct MCV MCH RDW Plt Count Lymph % (Auto) Park % (Auto) Seg Neutrophils % Seg Neuts % (Manual) Lymphocytes % (Manual) Seg Neutrophils # Seg Neutrophils # Man Lymphocytes # (Manual) POC ABG pH ABG pH POC ABG pCO2 POC ABG pO2 ABG pO2 ABG HCO3 ABG Base Excess ABG Hemoglobin Oxyhemoglobin Potassium Chloride Carbon Dioxide BUN Glucose POC Glucose 114 H 150 H 175 H Calcium Urine WBC (Auto) 01/10/17 01/11/17 01/11/17 23:24 00:19 04:06 WBC RBC Hgb Hct MCV MCH RDW Plt Count Lymph % (Auto) Park % (Auto) Seg Neutrophils % Seg Neuts % (Manual) Lymphocytes % (Manual) Seg Neutrophils # Seg Neutrophils # Man Lymphocytes # (Manual) POC ABG pH 7.463 H ABG pH POC ABG pCO2 26.2 L POC ABG pO2 185 H ABG pO2 ABG HCO3 ABG Base Excess ABG Hemoglobin Oxyhemoglobin Potassium Chloride Carbon Dioxide BUN Glucose POC Glucose 155 H 163 H Calcium Urine WBC (Auto) 01/11/17 01/11/17 01/11/17 05:20 05:20 06:21 WBC 15.2 H RBC 3.40 L Hgb 8.9 L Hct 26.3 L MCV 78 L MCH 26 L RDW 18.6 H Plt Count 462 H Lymph % (Auto) 13.2 L Park % (Auto) Seg Neutrophils % 80.8 H Seg Neuts % (Manual) Lymphocytes % (Manual) Seg Neutrophils # 12.3 H Seg Neutrophils # Man Lymphocytes # (Manual) POC ABG pH ABG pH POC ABG pCO2 POC ABG pO2 ABG pO2 ABG HCO3 ABG Base Excess ABG Hemoglobin Oxyhemoglobin Potassium 3.4 L Chloride 111.5 H Carbon Dioxide 17 L BUN Glucose 147 H POC Glucose 139 H Calcium 8.0 L Urine WBC (Auto) 01/11/17 01/11/17 01/11/17 07:57 11:46 16:50 WBC RBC Hgb Hct MCV MCH RDW Plt Count Lymph % (Auto) Park % (Auto) Seg Neutrophils % Seg Neuts % (Manual) Lymphocytes % (Manual) Seg Neutrophils # Seg Neutrophils # Man Lymphocytes # (Manual) POC ABG pH ABG pH POC ABG pCO2 POC ABG pO2 ABG pO2 ABG HCO3 ABG Base Excess ABG Hemoglobin Oxyhemoglobin Potassium Chloride Carbon Dioxide BUN Glucose POC Glucose 188 H 199 H 235 H Calcium Urine WBC (Auto) 01/11/17 01/12/17 01/12/17 23:15 05:02 06:56 WBC RBC Hgb Hct MCV MCH RDW Plt Count Lymph % (Auto) Park % (Auto) Seg Neutrophils % Seg Neuts % (Manual) Lymphocytes % (Manual) Seg Neutrophils # Seg Neutrophils # Man Lymphocytes # (Manual) POC ABG pH ABG pH POC ABG pCO2 28.0 L POC ABG pO2 178 H ABG pO2 ABG HCO3 ABG Base Excess ABG Hemoglobin Oxyhemoglobin Potassium Chloride Carbon Dioxide BUN Glucose POC Glucose 155 H 119 H Calcium Urine WBC (Auto) 01/12/17 01/13/17 01/13/17 14:50 03:37 03:37 WBC RBC 3.61 L Hgb 9.3 L Hct 28.0 L MCV 78 L MCH 26 L RDW 18.2 H Plt Count Lymph % (Auto) Park % (Auto) Seg Neutrophils % Seg Neuts % (Manual) Lymphocytes % (Manual) Seg Neutrophils # Seg Neutrophils # Man Lymphocytes # (Manual) POC ABG pH ABG pH POC ABG pCO2 POC ABG pO2 ABG pO2 ABG HCO3 ABG Base Excess ABG Hemoglobin Oxyhemoglobin Potassium Chloride 112.4 H Carbon Dioxide 19 L BUN Glucose 118 H POC Glucose 164 H Calcium 8.0 L Urine WBC (Auto) 01/13/17 01/13/17 01/13/17 04:26 06:15 11:50 WBC RBC Hgb Hct MCV MCH RDW Plt Count Lymph % (Auto) Park % (Auto) Seg Neutrophils % Seg Neuts % (Manual) Lymphocytes % (Manual) Seg Neutrophils # Seg Neutrophils # Man Lymphocytes # (Manual) POC ABG pH 7.485 H ABG pH POC ABG pCO2 25.4 L POC ABG pO2 73 L ABG pO2 ABG HCO3 ABG Base Excess ABG Hemoglobin Oxyhemoglobin Potassium Chloride Carbon Dioxide BUN Glucose POC Glucose 116 H 171 H Calcium Urine WBC (Auto) 01/13/17 01/14/17 01/14/17 17:31 00:02 04:50 WBC RBC 3.32 L Hgb 8.5 L Hct 26.1 L MCV 79 L MCH 26 L RDW 18.2 H Plt Count Lymph % (Auto) Park % (Auto) 9.0 H Seg Neutrophils % Seg Neuts % (Manual) Lymphocytes % (Manual) Seg Neutrophils # Seg Neutrophils # Man Lymphocytes # (Manual) POC ABG pH ABG pH POC ABG pCO2 POC ABG pO2 ABG pO2 ABG HCO3 ABG Base Excess ABG Hemoglobin Oxyhemoglobin Potassium Chloride Carbon Dioxide BUN Glucose POC Glucose 203 H 157 H Calcium Urine WBC (Auto) 01/14/17 01/14/17 01/14/17 04:50 05:10 11:27 WBC RBC Hgb Hct MCV MCH RDW Plt Count Lymph % (Auto) Park % (Auto) Seg Neutrophils % Seg Neuts % (Manual) Lymphocytes % (Manual) Seg Neutrophils # Seg Neutrophils # Man Lymphocytes # (Manual) POC ABG pH ABG pH POC ABG pCO2 POC ABG pO2 ABG pO2 ABG HCO3 ABG Base Excess ABG Hemoglobin Oxyhemoglobin Potassium Chloride 112.5 H Carbon Dioxide BUN Glucose 149 H POC Glucose 176 H 147 H Calcium 8.1 L Urine WBC (Auto) 01/14/17 01/14/17 01/15/17 14:07 16:52 00:04 WBC RBC Hgb Hct MCV MCH RDW Plt Count Lymph % (Auto) Park % (Auto) Seg Neutrophils % Seg Neuts % (Manual) Lymphocytes % (Manual) Seg Neutrophils # Seg Neutrophils # Man Lymphocytes # (Manual) POC ABG pH ABG pH POC ABG pCO2 POC ABG pO2 ABG pO2 ABG HCO3 ABG Base Excess ABG Hemoglobin Oxyhemoglobin Potassium Chloride Carbon Dioxide BUN Glucose POC Glucose 131 H 193 H Calcium Urine WBC (Auto) 53.0 H 01/15/17 01/15/17 01/15/17 05:26 11:49 17:47 WBC RBC Hgb Hct MCV MCH RDW Plt Count Lymph % (Auto) Park % (Auto) Seg Neutrophils % Seg Neuts % (Manual) Lymphocytes % (Manual) Seg Neutrophils # Seg Neutrophils # Man Lymphocytes # (Manual) POC ABG pH ABG pH POC ABG pCO2 POC ABG pO2 ABG pO2 ABG HCO3 ABG Base Excess ABG Hemoglobin Oxyhemoglobin Potassium Chloride Carbon Dioxide BUN Glucose POC Glucose 215 H 121 H 211 H Calcium Urine WBC (Auto) 01/15/17 01/16/17 01/16/17 21:33 04:30 05:28 WBC RBC Hgb Hct MCV MCH RDW Plt Count Lymph % (Auto) Park % (Auto) Seg Neutrophils % Seg Neuts % (Manual) Lymphocytes % (Manual) Seg Neutrophils # Seg Neutrophils # Man Lymphocytes # (Manual) POC ABG pH ABG pH 7.457 H POC ABG pCO2 POC ABG pO2 ABG pO2 55.1 L ABG HCO3 19.4 L ABG Base Excess -4.0 L ABG Hemoglobin 6.8 L Oxyhemoglobin 94.9 L Potassium Chloride Carbon Dioxide BUN Glucose POC Glucose 275 H 271 H Calcium Urine WBC (Auto) 1001/16/17 01/17/17 13:45 21:39 04:10 WBC 4.4 L RBC 2.98 L Hgb 7.7 L Hct 23.3 L MCV 78 L MCH 26 L RDW 18.1 H Plt Count Lymph % (Auto) Park % (Auto) Seg Neutrophils % Seg Neuts % (Manual) Lymphocytes % (Manual) Seg Neutrophils # Seg Neutrophils # Man Lymphocytes # (Manual) POC ABG pH ABG pH POC ABG pCO2 POC ABG pO2 ABG pO2 ABG HCO3 ABG Base Excess ABG Hemoglobin Oxyhemoglobin Potassium Chloride Carbon Dioxide BUN Glucose POC Glucose 236 H 258 H Calcium Urine WBC (Auto) 01/17/17 01/17/17 01/17/17 04:10 04:35 12:23 WBC RBC Hgb Hct MCV MCH RDW Plt Count Lymph % (Auto) Park % (Auto) Seg Neutrophils % Seg Neuts % (Manual) Lymphocytes % (Manual) Seg Neutrophils # Seg Neutrophils # Man Lymphocytes # (Manual) POC ABG pH ABG pH POC ABG pCO2 POC ABG pO2 ABG pO2 160.3 H ABG HCO3 ABG Base Excess -2.3 L ABG Hemoglobin 7.9 L Oxyhemoglobin Potassium 3.3 L Chloride 108.7 H Carbon Dioxide 20 L BUN 8 L Glucose 202 H POC Glucose 321 H Calcium 7.6 L Urine WBC (Auto) 01/17/17 01/18/17 01/18/17 16:01 05:07 12:09 WBC RBC Hgb Hct MCV MCH RDW Plt Count Lymph % (Auto) Park % (Auto) Seg Neutrophils % Seg Neuts % (Manual) Lymphocytes % (Manual) Seg Neutrophils # Seg Neutrophils # Man Lymphocytes # (Manual) POC ABG pH ABG pH POC ABG pCO2 POC ABG pO2 ABG pO2 ABG HCO3 ABG Base Excess ABG Hemoglobin Oxyhemoglobin Potassium Chloride Carbon Dioxide BUN Glucose POC Glucose 239 H 155 H 203 H Calcium Urine WBC (Auto) 01/18/17 01/18/17 01/19/17 17:54 23:43 04:28 WBC RBC Hgb Hct MCV MCH RDW Plt Count Lymph % (Auto) Park % (Auto) Seg Neutrophils % Seg Neuts % (Manual) Lymphocytes % (Manual) Seg Neutrophils # Seg Neutrophils # Man Lymphocytes # (Manual) POC ABG pH ABG pH POC ABG pCO2 POC ABG pO2 ABG pO2 ABG HCO3 ABG Base Excess ABG Hemoglobin Oxyhemoglobin Potassium Chloride Carbon Dioxide BUN Glucose POC Glucose 132 H 125 H 182 H Calcium Urine WBC (Auto) 01/19/17 01/19/17 01/20/17 12:11 17:23 00:12 WBC RBC Hgb Hct MCV MCH RDW Plt Count Lymph % (Auto) Park % (Auto) Seg Neutrophils % Seg Neuts % (Manual) Lymphocytes % (Manual) Seg Neutrophils # Seg Neutrophils # Man Lymphocytes # (Manual) POC ABG pH ABG pH POC ABG pCO2 POC ABG pO2 ABG pO2 ABG HCO3 ABG Base Excess ABG Hemoglobin Oxyhemoglobin Potassium Chloride Carbon Dioxide BUN Glucose POC Glucose 153 H 66 L 139 H Calcium Urine WBC (Auto) 01/20/17 01/20/17 01/20/17 05:44 11:48 17:42 WBC RBC Hgb Hct MCV MCH RDW Plt Count Lymph % (Auto) Park % (Auto) Seg Neutrophils % Seg Neuts % (Manual) Lymphocytes % (Manual) Seg Neutrophils # Seg Neutrophils # Man Lymphocytes # (Manual) POC ABG pH ABG pH POC ABG pCO2 POC ABG pO2 ABG pO2 ABG HCO3 ABG Base Excess ABG Hemoglobin Oxyhemoglobin Potassium Chloride Carbon Dioxide BUN Glucose POC Glucose 176 H 218 H 132 H Calcium Urine WBC (Auto) 01/20/17 01/21/17 23:43 05:34 WBC RBC Hgb Hct MCV MCH RDW Plt Count Lymph % (Auto) Park % (Auto) Seg Neutrophils % Seg Neuts % (Manual) Lymphocytes % (Manual) Seg Neutrophils # Seg Neutrophils # Man Lymphocytes # (Manual) POC ABG pH ABG pH POC ABG pCO2 POC ABG pO2 ABG pO2 ABG HCO3 ABG Base Excess ABG Hemoglobin Oxyhemoglobin Potassium Chloride Carbon Dioxide BUN Glucose POC Glucose 178 H 106 H Calcium Urine WBC (Auto)
[2017-01-21] MEDS: NORMODYNE PO SCH ×2 (09:48→21:30)
[2017-01-21] MEDS: LEVEMIR (NF) SUB-Q SCH (09:48)
[2017-01-21] MEDS: PEPCID PO SCH ×2 (09:48→21:29)
[2017-01-21] MEDS: HEPARIN SUB-Q SCH ×2 (09:49→21:30)
--- NOTE | 2017-01-21 10:08 | Progress Note ---
Assessment and Plan Assessment and plan: 51 YO Male with CKD,HTN, DM presents to ED for evaluation. Pt unable to provide history. Pt history taken from ED staff, and medical records. Pt found down and unresponsive by his neighbor, who subsequently called EMS. Upon arrival, patient found unresponsive on the floor with a serum glucose of 21, and covered with ants with insulin syringes around him and a bottle of atenolol which still had many pills remaining, patient has a known history of alcohol abuse and delirium tremens. The patient was administered D5 approximate 500 mls during transport without change in mental status/level of consciousness. Pt seen and evaluated in ED was was found to be unable to protect his airway. Pt intubated and placed on vent support. Pt found to have evidence of hypothyroidism. She was started on Synthroid. He has since been in the ICU. The patient continued to deteriorate. He is in this grade 4 coma, brain imaging does not show any reversible cause. The patient remains in a persistent vegetative states. Sepsis has been ruled out. patient services assistant try to locate family, even spoke to the family who he lives with. They themselves were unaware of any family members. After ethics committee meeting on the patient. The decision was made to make him DO NOT RESUSCITATE and to transfer him to hospice. Given his very poor prognosis and poor likelihood of recovery. It was decided that was not his best interest to get trach and PEG. Therefore he'll be transferred to the hospice intubated. Diagnosis Hypoglycemic brain injury Persistent vegetative state Metabolic encephalopathy Hypoglycemia/hypothermia Acute respiratory failure mechanical ventilator greater than 96 hours Sepsis ruled out, UTI ruled out hyponatremia, Hypothyroidism DNR- awaiting hospice placement, needs emergency guardianship from the state as has no family to give consent The high probability of a clinically significant, sudden or life threatening deterioration of the [neurologic, respiratory and CV] system(s) required my full and direct attention, intervention and personal management. The aggregate critical care time was [33] minutes. This time is in addition to time spent performing reported procedures but includes the following: [] Data Review and interpretation [] Patient assessment and monitoring of vital signs [] Documentation [] Medication orders and management History Interval history: patient remains comatose, no movement of extremities Hospitalist Physical - Physical exam Narrative exam: General: comatose HEENT: Moist mucous membranes, , no lymphadenopathy Neck: supple Cardiac: S1-S2 heard Lungs: mech ventilated breath sounds Abdomen: soft , nontender, nondistended, bowel sounds positive Extremities: no edema clubbing or cyanosis Skin: no rash or lesions Neurologic: No gag reflex, pupils minimally responsive, no response to deep painful stimuli - Constitutional Vitals: Temp Pulse Resp BP Pulse Ox 97.6 F 65 18 135/70 100 01/21/17 07:49 01/21/17 09:00 01/21/17 09:00 01/21/17 09:48 01/21/17 09:00 Results - Labs CBC & Chem 7: 01/17/17 04:10 01/17/17 04:10 Labs: Laboratory Last Values WBC 4.4 K/mm3 (4.5-11.0) L 01/17/17 04:10 RBC 2.98 M/mm3 (3.65-5.03) L 01/17/17 04:10 Hgb 7.7 gm/dl (11.8-15.2) L 01/17/17 04:10 Hct 23.3 % (35.5-45.6) L 01/17/17 04:10 MCV 78 fl (84-94) L 01/17/17 04:10 MCH 26 pg (28-32) L 01/17/17 04:10 MCHC 33 % (32-34) 01/17/17 04:10 RDW 18.1 % (13.2-15.2) H 01/17/17 04:10 Plt Count 281 K/mm3 (140-440) 01/17/17 04:10 Lymph % (Auto) 21.5 % (13.4-35.0) 01/14/17 04:50 [place] % (Auto) 9.0 % (0.0-7.3) H 01/14/17 04:50 Eos % (Auto) 0.6 % (0.0-4.3) 01/14/17 04:50 Baso % (Auto) 0.9 % (0.0-1.8) 01/14/17 04:50 Lymph # 1.4 K/mm3 (1.2-5.4) 01/14/17 04:50 [place] # 0.6 K/mm3 (0.0-0.8) 01/14/17 04:50 Eos # 0.0 K/mm3 (0.0-0.4) 01/14/17 04:50 Baso # 0.1 K/mm3 (0.0-0.1) 01/14/17 04:50 Add Manual Diff Complete 01/10/17 04:30 Total Counted 100 01/10/17 04:30 Seg Neutrophils % 68.0 % (40.0-70.0) 01/14/17 04:50 Seg Neuts % (Manual) 88.0 % (40.0-70.0) H 01/10/17 04:30 Band Neutrophils % 7.0 % 01/10/17 04:30 Lymphocytes % (Manual) 4.0 % (13.4-35.0) L 01/10/17 04:30 Reactive Lymphs % (Man) 0 % 01/10/17 04:30 Monocytes % (Manual) 1.0 % (0.0-7.3) 01/10/17 04:30 Eosinophils % (Manual) 0 % (0.0-4.3) 01/10/17 04:30 Basophils % (Manual) 0 % (0.0-1.8) 01/10/17 04:30 Metamyelocytes % 0 % 01/10/17 04:30 Myelocytes % 0 % 01/10/17 04:30 Promyelocytes % 0 % 01/10/17 04:30 Blast Cells % 0 % 01/10/17 04:30 Nucleated RBC % Not Reportable 01/10/17 04:30 Seg Neutrophils # 4.3 K/mm3 (1.8-7.7) 01/14/17 04:50 Seg Neutrophils # Man 21.2 K/mm3 (1.8-7.7) H 01/10/17 04:30 Band Neutrophils # 1.7 K/mm3 01/10/17 04:30 Lymphocytes # (Manual) 1.0 K/mm3 (1.2-5.4) L 01/10/17 04:30 Abs React Lymphs (Man) 0.0 K/mm3 01/10/17 04:30 Monocytes # (Manual) 0.2 K/mm3 (0.0-0.8) 01/10/17 04:30 Eosinophils # (Manual) 0.0 K/mm3 (0.0-0.4) 01/10/17 04:30 Basophils # (Manual) 0.0 K/mm3 (0.0-0.1) 01/10/17 04:30 Metamyelocytes # 0.0 K/mm3 01/10/17 04:30 Myelocytes # 0.0 K/mm3 01/10/17 04:30 Promyelocytes # 0.0 K/mm3 01/10/17 04:30 Blast Cells # 0.0 K/mm3 01/10/17 04:30 WBC Morphology Not Reportable 01/10/17 04:30 Hypersegmented Neuts Not Reportable 01/10/17 04:30 Hyposegmented Neuts Not Reportable 01/10/17 04:30 Hypogranular Neuts Not Reportable 01/10/17 04:30 Smudge Cells Not Reportable 01/10/17 04:30 Toxic Granulation Not Reportable 01/10/17 04:30 Toxic Vacuolation Not Reportable 01/10/17 04:30 Dohle Bodies Not Reportable 01/10/17 04:30 Pelger-Huet Anomaly Not Reportable 01/10/17 04:30 Shelby Rods Not Reportable 01/10/17 04:30 Platelet Estimate Consistent w auto 01/10/17 04:30 Clumped Platelets Not Reportable 01/10/17 04:30 Plt Clumps, EDTA Not Reportable 01/10/17 04:30 Large Platelets Not Reportable 01/10/17 04:30 Giant Platelets Not Reportable 01/10/17 04:30 Platelet Satelliting Not Reportable 01/10/17 04:30 Plt Morphology Comment Not Reportable 01/10/17 04:30 RBC Morphology Not Reportable 01/10/17 04:30 Dimorphic RBCs Not Reportable 01/10/17 04:30 Polychromasia Not Reportable 01/10/17 04:30 Hypochromasia 1+ 01/10/17 04:30 Poikilocytosis Not Reportable 01/10/17 04:30 Anisocytosis Not Reportable 01/10/17 04:30 Microcytosis Not Reportable 01/10/17 04:30 Macrocytosis Not Reportable 01/10/17 04:30 Spherocytes Not Reportable 01/10/17 04:30 Pappenheimer Bodies Not Reportable 01/10/17 04:30 Sickle Cells Not Reportable 01/10/17 04:30 Target Cells Not Reportable 01/10/17 04:30 Tear Drop Cells Not Reportable 01/10/17 04:30 Ovalocytes Not Reportable 01/10/17 04:30 Helmet Cells Not Reportable 01/10/17 04:30 Jarrett-[place] Bodies Not Reportable 01/10/17 04:30 [place] Rings Not Reportable 01/10/17 04:30 [place] Cells Not Reportable 01/10/17 04:30 Bite Cells Not Reportable 01/10/17 04:30 Crenated Cell Not Reportable 01/10/17 04:30 Elliptocytes Not Reportable 01/10/17 04:30 Acanthocytes (Spur) Not Reportable 01/10/17 04:30 Rouleaux Not Reportable 01/10/17 04:30 Hemoglobin C Crystals Not Reportable 01/10/17 04:30 Schistocytes Not Reportable 01/10/17 04:30 Malaria parasites Not Reportable 01/10/17 04:30 Kyle Bodies Not Reportable 01/10/17 04:30 Hem Pathologist Commnt No 01/10/17 04:30 PT 14.1 Sec. (12.2-14.9) 01/17/17 04:10 INR 1.04 (0.87-1.13) 01/17/17 04:10 APTT 36.6 Sec. (24.2-36.6) 01/17/17 04:10 POC ABG pH 7.485 (7.35-7.45) H 01/13/17 04:26 ABG pH 7.420 pH Units (7.350-7.450) 01/17/17 04:35 POC ABG pCO2 25.4 (35-45) L 01/13/17 04:26 ABG pCO2 34.5 mm Hg 01/17/17 04:35 POC ABG pO2 73 (80-105) L 01/13/17 04:26 ABG pO2 160.3 mm Hg (80.0-90.0) H 01/17/17 04:35 POC ABG HCO3 19.1 01/13/17 04:26 ABG HCO3 21.9 mmol/L (20.0-26.0) 01/17/17 04:35 POC ABG Total CO2 20 01/13/17 04:26 POC ABG O2 Sat 96 01/13/17 04:26 ABG O2 Saturation 99.0 % (95.0-99.0) 01/17/17 04:35 ABG O2 Content 11.1 (0.0-44) 01/17/17 04:35 POC ABG Base Excess -4 01/13/17 04:26 ABG Base Excess -2.3 mmol/L (-2.0-3.0) L 01/17/17 04:35 ABG Hemoglobin 7.9 gm/dl (14.0-18.0) L 01/17/17 04:35 ABG Carboxyhemoglobin 1.5 % (0.0-5.0) 01/17/17 04:35 ABG Methemoglobin 0.5 % (0.0-1.5) 01/17/17 04:35 VBG pH 7.284 (7.320-7.420) L 01/09/17 10:16 Oxyhemoglobin 97.1 % (95.0-99.0) 01/17/17 04:35 FiO2 30 % 01/17/17 04:35 Sodium 139 mmol/L (137-145) 01/17/17 04:10 Potassium 3.3 mmol/L (3.6-5.0) L 01/17/17 04:10 Chloride 108.7 mmol/L (98-107) H 01/17/17 04:10 Carbon Dioxide 20 mmol/L (22-30) L 01/17/17 04:10 Anion Gap 14 mmol/L 01/17/17 04:10 BUN 8 mg/dL (9-20) L 01/17/17 04:10 Creatinine 0.9 mg/dL (0.8-1.5) 01/17/17 04:10 Estimated GFR > 60 ml/min 01/17/17 04:10 BUN/Creatinine Ratio 9 % 01/17/17 04:10 Glucose 202 mg/dL (75-100) H 01/17/17 04:10 POC Glucose 106 (70-105) H 01/21/17 05:34 Lactic Acid 1.00 mmol/L (0.7-2.0) 01/09/17 10:16 Calcium 7.6 mg/dL (8.4-10.2) L 01/17/17 04:10 Magnesium 2.10 mg/dL (1.7-2.3) 01/09/17 10:16 Total Bilirubin 0.30 mg/dL (0.1-1.2) 01/09/17 10:16 AST 25 units/L (5-40) 01/09/17 10:16 ALT 17 units/L (7-56) 01/09/17 10:16 Alkaline Phosphatase 151 units/L (35-129) H 01/09/17 10:16 Ammonia 35.0 umol/L (25-60) 01/09/17 10:16 Total Creatine Kinase 135 units/L (55-170) 01/09/17 10:16 CK-MB (CK-2) 7.1 ng/mL (0.0-4.0) H 01/09/17 10:16 CK-MB (CK-2) Rel Index 5.2 (0-4) H 01/09/17 10:16 Troponin T < 0.010 ng/mL (0.00-0.029) 01/09/17 10:16 NT-Pro-B Natriuret Pep 602.9 pg/mL (0-900) 01/09/17 10:16 Total Protein 8.2 g/dL (6.3-8.2) 01/09/17 10:16 Albumin 3.3 g/dL (3.9-5) L 01/09/17 10:16 Albumin/Globulin Ratio 0.7 % 01/09/17 10:16 TSH 52.800 mlU/mL (0.270-4.200) H 01/09/17 10:16 Free T4 0.78 ng/dL (0.76-1.46) 01/09/17 10:16 Total Cortisol 54.8 mcg/dL () 01/09/17 16:19 Urine Color Yellow (Yellow) 01/14/17 14:07 Urine Turbidity Clear (Clear) 01/14/17 14:07 Urine pH 5.0 (5.0-7.0) 01/14/17 14:07 Ur Specific [place] 1.011 (1.003-1.030) 01/14/17 14:07 Urine Protein <15 mg/dl mg/dL (Negative) 01/14/17 14:07 Urine Glucose (UA) Neg mg/dL (Negative) 01/14/17 14:07 Urine Ketones Neg mg/dL (Negative) 01/14/17 14:07 Urine Blood Sm (Negative) 01/14/17 14:07 Urine Nitrite Neg (Negative) 01/14/17 14:07 Urine Bilirubin Neg (Negative) 01/14/17 14:07 Urine Urobilinogen < 2.0 mg/dL (<2.0) 01/14/17 14:07 Ur Leukocyte Esterase Lg (Negative) 01/14/17 14:07 Urine WBC (Auto) 53.0 /HPF (0.0-6.0) H 01/14/17 14:07 Urine RBC (Auto) 12.0 /HPF (0.0-6.0) 01/14/17 14:07 Urine Bacteria (Auto) 1+ /HPF (Negative) 01/09/17 10:23 Urine Mucus Few /HPF 01/14/17 14:07 Urine Yeast (Budding) 3+ /HPF 01/14/17 14:07 Salicylates < 0.3 mg/dL (2.8-20.0) L 01/09/17 10:16 Urine Opiates Screen Presumptive negative 01/09/17 10:23 Urine Methadone Screen Presumptive negative 01/09/17 10:23 Acetaminophen < 15.0 ug/mL (10.0-30.0) 01/09/17 10:16 Ur Barbiturates Screen Presumptive negative 01/09/17 10:23 Ur Phencyclidine Scrn Presumptive negative 01/09/17 10:23 Ur Amphetamines Screen Presumptive negative 01/09/17 10:23 U Benzodiazepines Scrn Presumptive negative 01/09/17 10:23 Urine Cocaine Screen Presumptive negative 01/09/17 10:23 U Marijuana (THC) Screen Presumptive negative 01/09/17 10:23 Drugs of Abuse Note Disclamer 01/09/17 10:23 Plasma/Serum Alcohol < 0.01 gm% (0-0.07) 01/09/17 10:16
[2017-01-22] MEDS: SYNTHROID PO SCH (05:09)
[2017-01-22] MEDS: NOVOLOG SUB-Q SCH ×4 (05:10→18:20)
[2017-01-22 06:15] LABS: Basophils # (Auto) 0.1 K/mm3 (0.0-0.1); Basophils % (Auto) 1.1 % (0.0-1.8); Eosinophils # (Auto) 0.3 K/mm3 (0.0-0.4); Eosinophils % (Auto) 6.2 % (0.0-4.3); Hematocrit 25.5 % (35.5-45.6); Hemoglobin 8.3 gm/dl (11.8-15.2); Lymphocytes # (Auto) 1.8 K/mm3 (1.2-5.4); Lymphocytes % (Auto) 34.4 % (13.4-35.0); Mean Corpuscular HGB Conc 32 % (32-34); Mean Corpuscular Volume 78 fl (84-94); Monocytes # (Auto) 0.4 K/mm3 (0.0-0.8); Monocytes % (Auto) 7.9 % (0.0-7.3); Platelet Count 438 K/mm3 (140-440); Red Blood Count 3.26 M/mm3 (3.65-5.03); Red Cell Distribution Width 17.9 % (13.2-15.2)
[2017-01-22 06:35] LABS: Mean Corpuscular Hemoglobin 25 pg (28-32)
[2017-01-22 06:46] LABS: Alanine Aminotransferase 23 units/L (7-56); Albumin 2.7 g/dL (3.9-5); BUN/Creatinine Ratio 23; Blood Urea Nitrogen 18 mg/dL (9-20); Calcium 9.1 mg/dL (8.4-10.2); Hemolysis Index 2
[2017-01-22] MEDS: NORMODYNE PO SCH ×2 (09:41→22:35)
[2017-01-22] MEDS: PEPCID PO SCH ×2 (09:41→22:36)
[2017-01-22] MEDS: LEVEMIR (NF) SUB-Q SCH (09:42)
[2017-01-22] MEDS: HEPARIN SUB-Q SCH ×2 (09:42→22:36)
--- NOTE | 2017-01-22 11:45 | Event Note ---
Date: 01/22/17 No clinical change, Continue supportive care
[2017-01-22] MEDS: APRESOLINE IV PRN (18:21)
--- NOTE | 2017-01-22 19:49 | Progress Note ---
Assessment and Plan Assessment and plan: 51 YO Male with CKD,HTN, DM presents to ED for evaluation. Pt unable to provide history. Pt history taken from ED staff, and medical records. Pt found down and unresponsive by his neighbor, who subsequently called EMS. Upon arrival, patient found unresponsive on the floor with a serum glucose of 21, and covered with ants with insulin syringes around him and a bottle of atenolol which still had many pills remaining, patient has a known history of alcohol abuse and delirium tremens. The patient was administered D5 approximate 500 mls during transport without change in mental status/level of consciousness. Pt seen and evaluated in ED was was found to be unable to protect his airway. Pt intubated and placed on vent support. Pt found to have evidence of hypothyroidism. She was started on Synthroid. He has since been in the ICU. The patient continued to deteriorate. He is in this grade 4 coma, brain imaging does not show any reversible cause. The patient remains in a persistent vegetative states. Sepsis has been ruled out. director of professional services try to locate family, even spoke to the family who he lives with. They themselves were unaware of any family members. After ethics committee meeting on the patient. The decision was made to make him DO NOT RESUSCITATE and to transfer him to hospice. Given his very poor prognosis and poor likelihood of recovery. It was decided that was not his best interest to get trach and PEG. Therefore he'll be transferred to the hospice intubated. Diagnosis Hypoglycemic brain injury Persistent vegetative state Metabolic encephalopathy Hypoglycemia/hypothermia Acute respiratory failure mechanical ventilator greater than 96 hours Sepsis ruled out, UTI ruled out hyponatremia, Hypothyroidism DNR- awaiting hospice placement, needs emergency guardianship from the state as has no family to give consent The high probability of a clinically significant, sudden or life threatening deterioration of the [neurologic, respiratory and CV] system(s) required my full and direct attention, intervention and personal management. The aggregate critical care time was [33] minutes. This time is in addition to time spent performing reported procedures but includes the following: [] Data Review and interpretation [] Patient assessment and monitoring of vital signs [] Documentation [] Medication orders and management History Interval history: patient remains comatose, no movement of extremities Hospitalist Physical - Physical exam Narrative exam: General: comatose HEENT: Moist mucous membranes, , no lymphadenopathy Neck: supple Cardiac: S1-S2 heard Lungs: mech ventilated breath sounds Abdomen: soft , nontender, nondistended, bowel sounds positive Extremities: no edema clubbing or cyanosis Skin: no rash or lesions Neurologic: opens eyes, has corneal reflex, No gag reflex, pupils minimally responsive, no response to deep painful stimuli - Constitutional Vitals: Temp Pulse Resp BP Pulse Ox 98.8 F 67 14 163/78 100 01/22/17 19:11 01/22/17 18:21 01/22/17 18:00 01/22/17 18:21 01/22/17 18:00 Results - Labs CBC & Chem 7: 01/22/17 04:00 01/22/17 04:00 Labs: Laboratory Last Values WBC 5.3 K/mm3 (4.5-11.0) 01/22/17 04:00 RBC 3.26 M/mm3 (3.65-5.03) L 01/22/17 04:00 Hgb 8.3 gm/dl (11.8-15.2) L 01/22/17 04:00 Hct 25.5 % (35.5-45.6) L 01/22/17 04:00 MCV 78 fl (84-94) L 01/22/17 04:00 MCH 25 pg (28-32) L 01/22/17 04:00 MCHC 32 % (32-34) 01/22/17 04:00 RDW 17.9 % (13.2-15.2) H 01/22/17 04:00 Plt Count 438 K/mm3 (140-440) 01/22/17 04:00 Lymph % (Auto) 34.4 % (13.4-35.0) 01/22/17 04:00 [place] % (Auto) 7.9 % (0.0-7.3) H 01/22/17 04:00 Eos % (Auto) 6.2 % (0.0-4.3) H 01/22/17 04:00 Baso % (Auto) 1.1 % (0.0-1.8) 01/22/17 04:00 Lymph # 1.8 K/mm3 (1.2-5.4) 01/22/17 04:00 [place] # 0.4 K/mm3 (0.0-0.8) 01/22/17 04:00 Eos # 0.3 K/mm3 (0.0-0.4) 01/22/17 04:00 Baso # 0.1 K/mm3 (0.0-0.1) 01/22/17 04:00 Add Manual Diff Complete 01/10/17 04:30 Total Counted 100 01/10/17 04:30 Seg Neutrophils % 50.4 % (40.0-70.0) 01/22/17 04:00 Seg Neuts % (Manual) 88.0 % (40.0-70.0) H 01/10/17 04:30 Band Neutrophils % 7.0 % 01/10/17 04:30 Lymphocytes % (Manual) 4.0 % (13.4-35.0) L 01/10/17 04:30 Reactive Lymphs % (Man) 0 % 01/10/17 04:30 Monocytes % (Manual) 1.0 % (0.0-7.3) 01/10/17 04:30 Eosinophils % (Manual) 0 % (0.0-4.3) 01/10/17 04:30 Basophils % (Manual) 0 % (0.0-1.8) 01/10/17 04:30 Metamyelocytes % 0 % 01/10/17 04:30 Myelocytes % 0 % 01/10/17 04:30 Promyelocytes % 0 % 01/10/17 04:30 Blast Cells % 0 % 01/10/17 04:30 Nucleated RBC % Not Reportable 01/10/17 04:30 Seg Neutrophils # 2.7 K/mm3 (1.8-7.7) 01/22/17 04:00 Seg Neutrophils # Man 21.2 K/mm3 (1.8-7.7) H 01/10/17 04:30 Band Neutrophils # 1.7 K/mm3 01/10/17 04:30 Lymphocytes # (Manual) 1.0 K/mm3 (1.2-5.4) L 01/10/17 04:30 Abs React Lymphs (Man) 0.0 K/mm3 01/10/17 04:30 Monocytes # (Manual) 0.2 K/mm3 (0.0-0.8) 01/10/17 04:30 Eosinophils # (Manual) 0.0 K/mm3 (0.0-0.4) 01/10/17 04:30 Basophils # (Manual) 0.0 K/mm3 (0.0-0.1) 01/10/17 04:30 Metamyelocytes # 0.0 K/mm3 01/10/17 04:30 Myelocytes # 0.0 K/mm3 01/10/17 04:30 Promyelocytes # 0.0 K/mm3 01/10/17 04:30 Blast Cells # 0.0 K/mm3 01/10/17 04:30 WBC Morphology Not Reportable 01/10/17 04:30 Hypersegmented Neuts Not Reportable 01/10/17 04:30 Hyposegmented Neuts Not Reportable 01/10/17 04:30 Hypogranular Neuts Not Reportable 01/10/17 04:30 Smudge Cells Not Reportable 01/10/17 04:30 Toxic Granulation Not Reportable 01/10/17 04:30 Toxic Vacuolation Not Reportable 01/10/17 04:30 Dohle Bodies Not Reportable 01/10/17 04:30 Pelger-Huet Anomaly Not Reportable 01/10/17 04:30 [place] Rods Not Reportable 01/10/17 04:30 Platelet Estimate Consistent w auto 01/10/17 04:30 Clumped Platelets Not Reportable 01/10/17 04:30 Plt Clumps, EDTA Not Reportable 01/10/17 04:30 Large Platelets Not Reportable 01/10/17 04:30 Giant Platelets Not Reportable 01/10/17 04:30 Platelet Satelliting Not Reportable 01/10/17 04:30 Plt Morphology Comment Not Reportable 01/10/17 04:30 RBC Morphology Not Reportable 01/10/17 04:30 Dimorphic RBCs Not Reportable 01/10/17 04:30 Polychromasia Not Reportable 01/10/17 04:30 Hypochromasia 1+ 01/10/17 04:30 Poikilocytosis Not Reportable 01/10/17 04:30 Anisocytosis Not Reportable 01/10/17 04:30 Microcytosis Not Reportable 01/10/17 04:30 Macrocytosis Not Reportable 01/10/17 04:30 Spherocytes Not Reportable 01/10/17 04:30 Pappenheimer Bodies Not Reportable 01/10/17 04:30 Sickle Cells Not Reportable 01/10/17 04:30 Target Cells Not Reportable 01/10/17 04:30 Tear Drop Cells Not Reportable 01/10/17 04:30 Ovalocytes Not Reportable 01/10/17 04:30 Helmet Cells Not Reportable 01/10/17 04:30 [place] Bodies Not Reportable 01/10/17 04:30 [place] Rings Not Reportable 01/10/17 04:30 [place] Cells Not Reportable 01/10/17 04:30 Bite Cells Not Reportable 01/10/17 04:30 Crenated Cell Not Reportable 01/10/17 04:30 Elliptocytes Not Reportable 01/10/17 04:30 Acanthocytes (Spur) Not Reportable 01/10/17 04:30 Rouleaux Not Reportable 01/10/17 04:30 Hemoglobin C Crystals Not Reportable 01/10/17 04:30 Schistocytes Not Reportable 01/10/17 04:30 Malaria parasites Not Reportable 01/10/17 04:30 Kyle Bodies Not Reportable 01/10/17 04:30 Hem Pathologist Commnt No 01/10/17 04:30 PT 14.1 Sec. (12.2-14.9) 01/17/17 04:10 INR 1.04 (0.87-1.13) 01/17/17 04:10 APTT 36.6 Sec. (24.2-36.6) 01/17/17 04:10 POC ABG pH 7.485 (7.35-7.45) H 01/13/17 04:26 ABG pH 7.420 pH Units (7.350-7.450) 01/17/17 04:35 POC ABG pCO2 25.4 (35-45) L 01/13/17 04:26 ABG pCO2 34.5 mm Hg 01/17/17 04:35 POC ABG pO2 73 (80-105) L 01/13/17 04:26 ABG pO2 160.3 mm Hg (80.0-90.0) H 01/17/17 04:35 POC ABG HCO3 19.1 01/13/17 04:26 ABG HCO3 21.9 mmol/L (20.0-26.0) 01/17/17 04:35 POC ABG Total CO2 20 01/13/17 04:26 POC ABG O2 Sat 96 01/13/17 04:26 ABG O2 Saturation 99.0 % (95.0-99.0) 01/17/17 04:35 ABG O2 Content 11.1 (0.0-44) 01/17/17 04:35 POC ABG Base Excess -4 01/13/17 04:26 ABG Base Excess -2.3 mmol/L (-2.0-3.0) L 01/17/17 04:35 ABG Hemoglobin 7.9 gm/dl (14.0-18.0) L 01/17/17 04:35 ABG Carboxyhemoglobin 1.5 % (0.0-5.0) 01/17/17 04:35 ABG Methemoglobin 0.5 % (0.0-1.5) 01/17/17 04:35 VBG pH 7.284 (7.320-7.420) L 01/09/17 10:16 Oxyhemoglobin 97.1 % (95.0-99.0) 01/17/17 04:35 FiO2 30 % 01/17/17 04:35 Sodium 137 mmol/L (137-145) 01/22/17 04:00 Potassium 4.3 mmol/L (3.6-5.0) D 01/22/17 04:00 Chloride 95.5 mmol/L (98-107) L 01/22/17 04:00 Carbon Dioxide 31 mmol/L (22-30) H D 01/22/17 04:00 Anion Gap 15 mmol/L 01/22/17 04:00 BUN 18 mg/dL (9-20) 01/22/17 04:00 Creatinine 0.8 mg/dL (0.8-1.5) 01/22/17 04:00 Estimated GFR > 60 ml/min 01/22/17 04:00 BUN/Creatinine Ratio 23 % 01/22/17 04:00 Glucose 134 mg/dL (75-100) H 01/22/17 04:00 POC Glucose 255 (70-105) H 01/22/17 12:12 Lactic Acid 1.00 mmol/L (0.7-2.0) 01/09/17 10:16 Calcium 9.1 mg/dL (8.4-10.2) D 01/22/17 04:00 Phosphorus 3.60 mg/dL (2.5-4.5) 01/22/17 04:00 Magnesium 2.10 mg/dL (1.7-2.3) 01/22/17 04:00 Total Bilirubin 0.30 mg/dL (0.1-1.2) 01/22/17 04:00 AST 44 units/L (5-40) H 01/22/17 04:00 ALT 23 units/L (7-56) 01/22/17 04:00 Alkaline Phosphatase 379 units/L (35-129) H 01/22/17 04:00 Ammonia 35.0 umol/L (25-60) 01/09/17 10:16 Total Creatine Kinase 135 units/L (55-170) 01/09/17 10:16 CK-MB (CK-2) 7.1 ng/mL (0.0-4.0) H 01/09/17 10:16 CK-MB (CK-2) Rel Index 5.2 (0-4) H 01/09/17 10:16 Troponin T < 0.010 ng/mL (0.00-0.029) 01/09/17 10:16 NT-Pro-B Natriuret Pep 602.9 pg/mL (0-900) 01/09/17 10:16 Total Protein 7.9 g/dL (6.3-8.2) 01/22/17 04:00 Albumin 2.7 g/dL (3.9-5) L 01/22/17 04:00 Albumin/Globulin Ratio 0.5 % 01/22/17 04:00 TSH 52.800 mlU/mL (0.270-4.200) H 01/09/17 10:16 Free T4 0.78 ng/dL (0.76-1.46) 01/09/17 10:16 Total Cortisol 54.8 mcg/dL () 01/09/17 16:19 Urine Color Yellow (Yellow) 01/14/17 14:07 Urine Turbidity Clear (Clear) 01/14/17 14:07 Urine pH 5.0 (5.0-7.0) 01/14/17 14:07 Ur Specific [place] 1.011 (1.003-1.030) 01/14/17 14:07 Urine Protein <15 mg/dl mg/dL (Negative) 01/14/17 14:07 Urine Glucose (UA) Neg mg/dL (Negative) 01/14/17 14:07 Urine Ketones Neg mg/dL (Negative) 01/14/17 14:07 Urine Blood Sm (Negative) 01/14/17 14:07 Urine Nitrite Neg (Negative) 01/14/17 14:07 Urine Bilirubin Neg (Negative) 01/14/17 14:07 Urine Urobilinogen < 2.0 mg/dL (<2.0) 01/14/17 14:07 Ur Leukocyte Esterase Lg (Negative) 01/14/17 14:07 Urine WBC (Auto) 53.0 /HPF (0.0-6.0) H 01/14/17 14:07 Urine RBC (Auto) 12.0 /HPF (0.0-6.0) 01/14/17 14:07 Urine Bacteria (Auto) 1+ /HPF (Negative) 01/09/17 10:23 Urine Mucus Few /HPF 01/14/17 14:07 Urine Yeast (Budding) 3+ /HPF 01/14/17 14:07 Salicylates < 0.3 mg/dL (2.8-20.0) L 01/09/17 10:16 Urine Opiates Screen Presumptive negative 01/09/17 10:23 Urine Methadone Screen Presumptive negative 01/09/17 10:23 Acetaminophen < 15.0 ug/mL (10.0-30.0) 01/09/17 10:16 Ur Barbiturates Screen Presumptive negative 01/09/17 10:23 Ur Phencyclidine Scrn Presumptive negative 01/09/17 10:23 Ur Amphetamines Screen Presumptive negative 01/09/17 10:23 U Benzodiazepines Scrn Presumptive negative 01/09/17 10:23 Urine Cocaine Screen Presumptive negative 01/09/17 10:23 U Marijuana (THC) Screen Presumptive negative 01/09/17 10:23 Drugs of Abuse Note Disclamer 01/09/17 10:23 Plasma/Serum Alcohol < 0.01 gm% (0-0.07) 01/09/17 10:16
[2017-01-23] MEDS: NOVOLOG SUB-Q SCH ×4 (05:09→18:18)
[2017-01-23] MEDS: SYNTHROID PO SCH (05:49)
[2017-01-23] MEDS: HEPARIN SUB-Q SCH ×2 (09:33→21:44)
[2017-01-23] MEDS: LEVEMIR (NF) SUB-Q SCH (09:33)
[2017-01-23] MEDS: PEPCID PO SCH ×2 (09:34→21:44)
[2017-01-23] MEDS: NORMODYNE PO SCH ×2 (09:34→21:44)
--- NOTE | 2017-01-23 14:07 | Progress Note ---
Assessment and Plan Assessment and plan: 51 YO Male with CKD,HTN, DM presents to ED for evaluation. Pt unable to provide history. Pt history taken from ED staff, and medical records. Pt found down and unresponsive by his neighbor, who subsequently called EMS. Upon arrival, patient found unresponsive on the floor with a serum glucose of 21, and covered with ants with insulin syringes around him and a bottle of atenolol which still had many pills remaining, patient has a known history of alcohol abuse and delirium tremens. The patient was administered D5 approximate 500 mls during transport without change in mental status/level of consciousness. Pt seen and evaluated in ED was was found to be unable to protect his airway. Pt intubated and placed on vent support. Pt found to have evidence of hypothyroidism. She was started on Synthroid. He has since been in the ICU. The patient continued to deteriorate. He is in this grade 4 coma, brain imaging does not show any reversible cause. The patient remains in a persistent vegetative states. Sepsis has been ruled out. director of employer services try to locate family, even spoke to the family who he lives with. They themselves were unaware of any family members. After ethics committee meeting on the patient. The decision was made to make him DO NOT RESUSCITATE and to transfer him to hospice. Given his very poor prognosis and poor likelihood of recovery. It was decided that was not his best interest to get trach and PEG. Therefore he'll be transferred to the hospice intubated. Diagnosis Hypoglycemic brain injury Persistent vegetative state Metabolic encephalopathy Hypoglycemia/hypothermia Acute respiratory failure mechanical ventilator greater than 96 hours Sepsis ruled out, UTI ruled out hyponatremia, Hypothyroidism DNR- awaiting hospice placement, needs guardianship from the state to give consent, as has no family to give consent The high probability of a clinically significant, sudden or life threatening deterioration of the [neurologic, respiratory and CV] system(s) required my full and direct attention, intervention and personal management. The aggregate critical care time was [33] minutes. This time is in addition to time spent performing reported procedures but includes the following: [] Data Review and interpretation [] Patient assessment and monitoring of vital signs [] Documentation [] Medication orders and management History Interval history: patient remains comatose, no movement of extremities Hospitalist Physical - Physical exam Narrative exam: General: comatose HEENT: Moist mucous membranes, , no lymphadenopathy Neck: supple Cardiac: S1-S2 heard Lungs: mech ventilated breath sounds Abdomen: soft , nontender, nondistended, bowel sounds positive Extremities: no edema clubbing or cyanosis Skin: no rash or lesions Neurologic: opens eyes, has corneal reflex, No gag reflex, pupils minimally responsive, no response to deep painful stimuli - Constitutional Vitals: Temp Pulse Resp BP Pulse Ox 98.7 F 67 12 140/73 100 01/23/17 12:00 01/23/17 12:06 01/23/17 11:00 01/23/17 12:06 01/23/17 12:06 Results - Labs CBC & Chem 7: 01/22/17 04:00 01/22/17 04:00 Labs: Laboratory Last Values WBC 5.3 K/mm3 (4.5-11.0) 01/22/17 04:00 RBC 3.26 M/mm3 (3.65-5.03) L 01/22/17 04:00 Hgb 8.3 gm/dl (11.8-15.2) L 01/22/17 04:00 Hct 25.5 % (35.5-45.6) L 01/22/17 04:00 MCV 78 fl (84-94) L 01/22/17 04:00 MCH 25 pg (28-32) L 01/22/17 04:00 MCHC 32 % (32-34) 01/22/17 04:00 RDW 17.9 % (13.2-15.2) H 01/22/17 04:00 Plt Count 438 K/mm3 (140-440) 01/22/17 04:00 Lymph % (Auto) 34.4 % (13.4-35.0) 01/22/17 04:00 [place] % (Auto) 7.9 % (0.0-7.3) H 01/22/17 04:00 Eos % (Auto) 6.2 % (0.0-4.3) H 01/22/17 04:00 Baso % (Auto) 1.1 % (0.0-1.8) 01/22/17 04:00 Lymph # 1.8 K/mm3 (1.2-5.4) 01/22/17 04:00 [place] # 0.4 K/mm3 (0.0-0.8) 01/22/17 04:00 Eos # 0.3 K/mm3 (0.0-0.4) 01/22/17 04:00 Baso # 0.1 K/mm3 (0.0-0.1) 01/22/17 04:00 Add Manual Diff Complete 01/10/17 04:30 Total Counted 100 01/10/17 04:30 Seg Neutrophils % 50.4 % (40.0-70.0) 01/22/17 04:00 Seg Neuts % (Manual) 88.0 % (40.0-70.0) H 01/10/17 04:30 Band Neutrophils % 7.0 % 01/10/17 04:30 Lymphocytes % (Manual) 4.0 % (13.4-35.0) L 01/10/17 04:30 Reactive Lymphs % (Man) 0 % 01/10/17 04:30 Monocytes % (Manual) 1.0 % (0.0-7.3) 01/10/17 04:30 Eosinophils % (Manual) 0 % (0.0-4.3) 01/10/17 04:30 Basophils % (Manual) 0 % (0.0-1.8) 01/10/17 04:30 Metamyelocytes % 0 % 01/10/17 04:30 Myelocytes % 0 % 01/10/17 04:30 Promyelocytes % 0 % 01/10/17 04:30 Blast Cells % 0 % 01/10/17 04:30 Nucleated RBC % Not Reportable 01/10/17 04:30 Seg Neutrophils # 2.7 K/mm3 (1.8-7.7) 01/22/17 04:00 Seg Neutrophils # Man 21.2 K/mm3 (1.8-7.7) H 01/10/17 04:30 Band Neutrophils # 1.7 K/mm3 01/10/17 04:30 Lymphocytes # (Manual) 1.0 K/mm3 (1.2-5.4) L 01/10/17 04:30 Abs React Lymphs (Man) 0.0 K/mm3 01/10/17 04:30 Monocytes # (Manual) 0.2 K/mm3 (0.0-0.8) 01/10/17 04:30 Eosinophils # (Manual) 0.0 K/mm3 (0.0-0.4) 01/10/17 04:30 Basophils # (Manual) 0.0 K/mm3 (0.0-0.1) 01/10/17 04:30 Metamyelocytes # 0.0 K/mm3 01/10/17 04:30 Myelocytes # 0.0 K/mm3 01/10/17 04:30 Promyelocytes # 0.0 K/mm3 01/10/17 04:30 Blast Cells # 0.0 K/mm3 01/10/17 04:30 WBC Morphology Not Reportable 01/10/17 04:30 Hypersegmented Neuts Not Reportable 01/10/17 04:30 Hyposegmented Neuts Not Reportable 01/10/17 04:30 Hypogranular Neuts Not Reportable 01/10/17 04:30 Smudge Cells Not Reportable 01/10/17 04:30 Toxic Granulation Not Reportable 01/10/17 04:30 Toxic Vacuolation Not Reportable 01/10/17 04:30 Dohle Bodies Not Reportable 01/10/17 04:30 Pelger-Huet Anomaly Not Reportable 01/10/17 04:30 Shelby Rods Not Reportable 01/10/17 04:30 Platelet Estimate Consistent w auto 01/10/17 04:30 Clumped Platelets Not Reportable 01/10/17 04:30 Plt Clumps, EDTA Not Reportable 01/10/17 04:30 Large Platelets Not Reportable 01/10/17 04:30 Giant Platelets Not Reportable 01/10/17 04:30 Platelet Satelliting Not Reportable 01/10/17 04:30 Plt Morphology Comment Not Reportable 01/10/17 04:30 RBC Morphology Not Reportable 01/10/17 04:30 Dimorphic RBCs Not Reportable 01/10/17 04:30 Polychromasia Not Reportable 01/10/17 04:30 Hypochromasia 1+ 01/10/17 04:30 Poikilocytosis Not Reportable 01/10/17 04:30 Anisocytosis Not Reportable 01/10/17 04:30 Microcytosis Not Reportable 01/10/17 04:30 Macrocytosis Not Reportable 01/10/17 04:30 Spherocytes Not Reportable 01/10/17 04:30 Pappenheimer Bodies Not Reportable 01/10/17 04:30 Sickle Cells Not Reportable 01/10/17 04:30 Target Cells Not Reportable 01/10/17 04:30 Tear Drop Cells Not Reportable 01/10/17 04:30 Ovalocytes Not Reportable 01/10/17 04:30 Helmet Cells Not Reportable 01/10/17 04:30 [place] Bodies Not Reportable 01/10/17 04:30 Schroeder Rings Not Reportable 01/10/17 04:30 [place] Cells Not Reportable 01/10/17 04:30 Bite Cells Not Reportable 01/10/17 04:30 Crenated Cell Not Reportable 01/10/17 04:30 Elliptocytes Not Reportable 01/10/17 04:30 Acanthocytes (Spur) Not Reportable 01/10/17 04:30 Rouleaux Not Reportable 01/10/17 04:30 Hemoglobin C Crystals Not Reportable 01/10/17 04:30 Schistocytes Not Reportable 01/10/17 04:30 Malaria parasites Not Reportable 01/10/17 04:30 Kyle Bodies Not Reportable 01/10/17 04:30 Hem Pathologist Commnt No 01/10/17 04:30 PT 14.1 Sec. (12.2-14.9) 01/17/17 04:10 INR 1.04 (0.87-1.13) 01/17/17 04:10 APTT 36.6 Sec. (24.2-36.6) 01/17/17 04:10 POC ABG pH 7.485 (7.35-7.45) H 01/13/17 04:26 ABG pH 7.420 pH Units (7.350-7.450) 01/17/17 04:35 POC ABG pCO2 25.4 (35-45) L 01/13/17 04:26 ABG pCO2 34.5 mm Hg 01/17/17 04:35 POC ABG pO2 73 (80-105) L 01/13/17 04:26 ABG pO2 160.3 mm Hg (80.0-90.0) H 01/17/17 04:35 POC ABG HCO3 19.1 01/13/17 04:26 ABG HCO3 21.9 mmol/L (20.0-26.0) 01/17/17 04:35 POC ABG Total CO2 20 01/13/17 04:26 POC ABG O2 Sat 96 01/13/17 04:26 ABG O2 Saturation 99.0 % (95.0-99.0) 01/17/17 04:35 ABG O2 Content 11.1 (0.0-44) 01/17/17 04:35 POC ABG Base Excess -4 01/13/17 04:26 ABG Base Excess -2.3 mmol/L (-2.0-3.0) L 01/17/17 04:35 ABG Hemoglobin 7.9 gm/dl (14.0-18.0) L 01/17/17 04:35 ABG Carboxyhemoglobin 1.5 % (0.0-5.0) 01/17/17 04:35 ABG Methemoglobin 0.5 % (0.0-1.5) 01/17/17 04:35 VBG pH 7.284 (7.320-7.420) L 01/09/17 10:16 Oxyhemoglobin 97.1 % (95.0-99.0) 01/17/17 04:35 FiO2 30 % 01/17/17 04:35 Sodium 137 mmol/L (137-145) 01/22/17 04:00 Potassium 4.3 mmol/L (3.6-5.0) D 01/22/17 04:00 Chloride 95.5 mmol/L (98-107) L 01/22/17 04:00 Carbon Dioxide 31 mmol/L (22-30) H D 01/22/17 04:00 Anion Gap 15 mmol/L 01/22/17 04:00 BUN 18 mg/dL (9-20) 01/22/17 04:00 Creatinine 0.8 mg/dL (0.8-1.5) 01/22/17 04:00 Estimated GFR > 60 ml/min 01/22/17 04:00 BUN/Creatinine Ratio 23 % 01/22/17 04:00 Glucose 134 mg/dL (75-100) H 01/22/17 04:00 POC Glucose 218 (70-105) H 01/23/17 04:43 Lactic Acid 1.00 mmol/L (0.7-2.0) 01/09/17 10:16 Calcium 9.1 mg/dL (8.4-10.2) D 01/22/17 04:00 Phosphorus 3.60 mg/dL (2.5-4.5) 01/22/17 04:00 Magnesium 2.10 mg/dL (1.7-2.3) 01/22/17 04:00 Total Bilirubin 0.30 mg/dL (0.1-1.2) 01/22/17 04:00 AST 44 units/L (5-40) H 01/22/17 04:00 ALT 23 units/L (7-56) 01/22/17 04:00 Alkaline Phosphatase 379 units/L (35-129) H 01/22/17 04:00 Ammonia 35.0 umol/L (25-60) 01/09/17 10:16 Total Creatine Kinase 135 units/L (55-170) 01/09/17 10:16 CK-MB (CK-2) 7.1 ng/mL (0.0-4.0) H 01/09/17 10:16 CK-MB (CK-2) Rel Index 5.2 (0-4) H 01/09/17 10:16 Troponin T < 0.010 ng/mL (0.00-0.029) 01/09/17 10:16 NT-Pro-B Natriuret Pep 602.9 pg/mL (0-900) 01/09/17 10:16 Total Protein 7.9 g/dL (6.3-8.2) 01/22/17 04:00 Albumin 2.7 g/dL (3.9-5) L 01/22/17 04:00 Albumin/Globulin Ratio 0.5 % 01/22/17 04:00 TSH 52.800 mlU/mL (0.270-4.200) H 01/09/17 10:16 Free T4 0.78 ng/dL (0.76-1.46) 01/09/17 10:16 Total Cortisol 54.8 mcg/dL () 01/09/17 16:19 Urine Color Yellow (Yellow) 01/14/17 14:07 Urine Turbidity Clear (Clear) 01/14/17 14:07 Urine pH 5.0 (5.0-7.0) 01/14/17 14:07 Ur Specific [place] 1.011 (1.003-1.030) 01/14/17 14:07 Urine Protein <15 mg/dl mg/dL (Negative) 01/14/17 14:07 Urine Glucose (UA) Neg mg/dL (Negative) 01/14/17 14:07 Urine Ketones Neg mg/dL (Negative) 01/14/17 14:07 Urine Blood Sm (Negative) 01/14/17 14:07 Urine Nitrite Neg (Negative) 01/14/17 14:07 Urine Bilirubin Neg (Negative) 01/14/17 14:07 Urine Urobilinogen < 2.0 mg/dL (<2.0) 01/14/17 14:07 Ur Leukocyte Esterase Lg (Negative) 01/14/17 14:07 Urine WBC (Auto) 53.0 /HPF (0.0-6.0) H 01/14/17 14:07 Urine RBC (Auto) 12.0 /HPF (0.0-6.0) 01/14/17 14:07 Urine Bacteria (Auto) 1+ /HPF (Negative) 01/09/17 10:23 Urine Mucus Few /HPF 01/14/17 14:07 Urine Yeast (Budding) 3+ /HPF 01/14/17 14:07 Salicylates < 0.3 mg/dL (2.8-20.0) L 01/09/17 10:16 Urine Opiates Screen Presumptive negative 01/09/17 10:23 Urine Methadone Screen Presumptive negative 01/09/17 10:23 Acetaminophen < 15.0 ug/mL (10.0-30.0) 01/09/17 10:16 Ur Barbiturates Screen Presumptive negative 01/09/17 10:23 Ur Phencyclidine Scrn Presumptive negative 01/09/17 10:23 Ur Amphetamines Screen Presumptive negative 01/09/17 10:23 U Benzodiazepines Scrn Presumptive negative 01/09/17 10:23 Urine Cocaine Screen Presumptive negative 01/09/17 10:23 U Marijuana (THC) Screen Presumptive negative 01/09/17 10:23 Drugs of Abuse Note Disclamer 01/09/17 10:23 Plasma/Serum Alcohol < 0.01 gm% (0-0.07) 01/09/17 10:16
[2017-01-24] MEDS: NOVOLOG SUB-Q SCH ×4 (00:17→18:07)
[2017-01-24] MEDS: SYNTHROID PO SCH (06:16)
[2017-01-24] MEDS: LEVEMIR (NF) SUB-Q SCH (11:37)
[2017-01-24] MEDS: NORMODYNE PO SCH ×2 (11:37→23:04)
[2017-01-24] MEDS: HEPARIN SUB-Q SCH ×2 (11:39→23:04)
[2017-01-24] MEDS: PEPCID PO SCH ×2 (11:39→23:05)
--- NOTE | 2017-01-24 14:02 | Progress Note ---
Assessment and Plan 51 y/o male found down, concern for sepsis and now encephalopathic requiring mechanical ventilation. No New recs 1. continue supportive care 2. Spoke with ethics and they are working to obtain [place] of patient for further management CCT 31 minutes. Subjective Date of service: 01/24/17 Principal diagnosis: Acute respiratory failure Interval history: No acute events Objective Vital Signs - 12hr 01/24/17 01/24/17 01/24/17 03:00 03:18 04:00 Temperature 99.9 F H Pulse Rate 76 78 76 Respiratory 12 16 Rate Blood Pressure 144/73 144/73 106/59 O2 Sat by Pulse 98 100 98 Oximetry 01/24/17 01/24/17 01/24/17 05:00 06:00 07:00 Temperature Pulse Rate 74 76 80 Respiratory 15 13 13 Rate Blood Pressure 126/70 135/69 117/66 O2 Sat by Pulse 97 97 99 Oximetry 01/24/17 01/24/17 01/24/17 08:00 08:55 09:00 Temperature 101.0 F H Pulse Rate 77 76 75 Respiratory 12 15 18 Rate Blood Pressure 122/64 122/64 107/60 O2 Sat by Pulse 99 100 100 Oximetry 01/24/17 01/24/17 01/24/17 10:00 10:34 11:00 Temperature Pulse Rate 71 71 69 Respiratory 18 12 Rate Blood Pressure 121/64 121/64 115/61 O2 Sat by Pulse 100 100 100 Oximetry 01/24/17 01/24/17 01/24/17 11:37 11:51 12:00 Temperature 100.2 F H Pulse Rate 71 72 Respiratory Rate Blood Pressure 115/61 115/61 O2 Sat by Pulse 100 Oximetry Constitutional: no acute distress, comatose, other (intubated, on vent) Eyes: non-icteric ENT: oropharynx moist Neck: supple, no JVD Effort: normal Ascultation: Bilateral: clear, diminished breath sounds Cardiovascular: regular rate and rhythm Gastrointestinal: normoactive bowel sounds, soft, non-tender, non-distended Integumentary: rash (lesions all over trunk/extremities (most appear to be scabs )) Extremities: no cyanosis, no edema, pink and warm Neurologic: non-focal exam, pupils equal and round, other (unresponsive, GCS 3) Psychiatric: other (unable to obtain) CBC and BMP: 01/22/17 04:00 01/22/17 04:00 ABG, PT/INR, D-dimer: ABG POC ABG pH 7.485 (7.35-7.45) H 01/13/17 04:26 ABG pH 7.420 pH Units (7.350-7.450) 01/17/17 04:35 POC ABG pCO2 25.4 (35-45) L 01/13/17 04:26 ABG pCO2 34.5 mm Hg 01/17/17 04:35 POC ABG pO2 73 (80-105) L 01/13/17 04:26 ABG pO2 160.3 mm Hg (80.0-90.0) H 01/17/17 04:35 POC ABG HCO3 19.1 01/13/17 04:26 POC ABG Total CO2 20 01/13/17 04:26 POC ABG O2 Sat 96 01/13/17 04:26 ABG O2 Saturation 99.0 % (95.0-99.0) 01/17/17 04:35 PT/INR, D-dimer PT 14.1 Sec. (12.2-14.9) 01/17/17 04:10 INR 1.04 (0.87-1.13) 01/17/17 04:10 Abnormal lab findings: Abnormal Labs 01/09/17 01/09/17 01/09/17 12:49 13:13 14:21 WBC RBC Hgb Hct MCV MCH RDW Plt Count Lymph % (Auto) [place] % (Auto) Eos % (Auto) Seg Neutrophils % Seg Neuts % (Manual) Lymphocytes % (Manual) Seg Neutrophils # Seg Neutrophils # Man Lymphocytes # (Manual) POC ABG pH ABG pH POC ABG pCO2 POC ABG pO2 ABG pO2 ABG HCO3 ABG Base Excess ABG Hemoglobin Oxyhemoglobin Potassium Chloride Carbon Dioxide BUN Glucose POC Glucose < 40 L 128 H 65 L Calcium AST Alkaline Phosphatase Albumin Urine WBC (Auto) 01/09/17 01/09/17 01/09/17 15:09 16:28 17:14 WBC RBC Hgb Hct MCV MCH RDW Plt Count Lymph % (Auto) [place] % (Auto) Eos % (Auto) Seg Neutrophils % Seg Neuts % (Manual) Lymphocytes % (Manual) Seg Neutrophils # Seg Neutrophils # Man Lymphocytes # (Manual) POC ABG pH ABG pH POC ABG pCO2 POC ABG pO2 ABG pO2 ABG HCO3 ABG Base Excess ABG Hemoglobin Oxyhemoglobin Potassium Chloride Carbon Dioxide BUN Glucose POC Glucose 120 H 44 L 112 H Calcium AST Alkaline Phosphatase Albumin Urine WBC (Auto) 01/10/17 01/10/17 01/10/17 04:30 04:30 05:41 WBC 24.1 H RBC 3.38 L Hgb 8.5 L Hct 26.0 L MCV 77 L MCH 25 L RDW 17.9 H Plt Count 474 H Lymph % (Auto) [place] % (Auto) Eos % (Auto) Seg Neutrophils % Seg Neuts % (Manual) 88.0 H Lymphocytes % (Manual) 4.0 L Seg Neutrophils # Seg Neutrophils # Man 21.2 H Lymphocytes # (Manual) 1.0 L POC ABG pH ABG pH POC ABG pCO2 POC ABG pO2 ABG pO2 ABG HCO3 ABG Base Excess ABG Hemoglobin Oxyhemoglobin Potassium Chloride Carbon Dioxide 17 L BUN 27 H Glucose POC Glucose 68 L Calcium 7.5 L AST Alkaline Phosphatase Albumin Urine WBC (Auto) 01/10/17 01/10/17 01/10/17 05:45 07:47 10:50 WBC RBC Hgb Hct MCV MCH RDW Plt Count Lymph % (Auto) [place] % (Auto) Eos % (Auto) Seg Neutrophils % Seg Neuts % (Manual) Lymphocytes % (Manual) Seg Neutrophils # Seg Neutrophils # Man Lymphocytes # (Manual) POC ABG pH ABG pH POC ABG pCO2 26.6 L POC ABG pO2 207 H ABG pO2 ABG HCO3 ABG Base Excess ABG Hemoglobin Oxyhemoglobin Potassium Chloride Carbon Dioxide BUN Glucose POC Glucose 148 H 165 H Calcium AST Alkaline Phosphatase Albumin Urine WBC (Auto) 01/10/17 01/10/17 01/10/17 13:41 20:20 21:39 WBC RBC Hgb Hct MCV MCH RDW Plt Count Lymph % (Auto) [place] % (Auto) Eos % (Auto) Seg Neutrophils % Seg Neuts % (Manual) Lymphocytes % (Manual) Seg Neutrophils # Seg Neutrophils # Man Lymphocytes # (Manual) POC ABG pH ABG pH POC ABG pCO2 POC ABG pO2 ABG pO2 ABG HCO3 ABG Base Excess ABG Hemoglobin Oxyhemoglobin Potassium Chloride Carbon Dioxide BUN Glucose POC Glucose 114 H 150 H 175 H Calcium AST Alkaline Phosphatase Albumin Urine WBC (Auto) 01/10/17 01/11/1701/11/17 23:24 00:19 04:06 WBC RBC Hgb Hct MCV MCH RDW Plt Count Lymph % (Auto) [place] % (Auto) Eos % (Auto) Seg Neutrophils % Seg Neuts % (Manual) Lymphocytes % (Manual) Seg Neutrophils # Seg Neutrophils # Man Lymphocytes # (Manual) POC ABG pH 7.463 H ABG pH POC ABG pCO2 26.2 L POC ABG pO2 185 H ABG pO2 ABG HCO3 ABG Base Excess ABG Hemoglobin Oxyhemoglobin Potassium Chloride Carbon Dioxide BUN Glucose POC Glucose 155 H 163 H Calcium AST Alkaline Phosphatase Albumin Urine WBC (Auto) 01/11/17 01/11/17 01/11/17 05:20 05:20 06:21 WBC 15.2 H RBC 3.40 L Hgb 8.9 L Hct 26.3 L MCV 78 L MCH 26 L RDW 18.6 H Plt Count 462 H Lymph % (Auto) 13.2 L [place] % (Auto) Eos % (Auto) Seg Neutrophils % 80.8 H Seg Neuts % (Manual) Lymphocytes % (Manual) Seg Neutrophils # 12.3 H Seg Neutrophils # Man Lymphocytes # (Manual) POC ABG pH ABG pH POC ABG pCO2 POC ABG pO2 ABG pO2 ABG HCO3 ABG Base Excess ABG Hemoglobin Oxyhemoglobin Potassium 3.4 L Chloride 111.5 H Carbon Dioxide 17 L BUN Glucose 147 H POC Glucose 139 H Calcium 8.0 L AST Alkaline Phosphatase Albumin Urine WBC (Auto) 01/11/17 01/11/17 01/11/17 07:57 11:46 16:50 WBC RBC Hgb Hct MCV MCH RDW Plt Count Lymph % (Auto) [place] % (Auto) Eos % (Auto) Seg Neutrophils % Seg Neuts % (Manual) Lymphocytes % (Manual) Seg Neutrophils # Seg Neutrophils # Man Lymphocytes # (Manual) POC ABG pH ABG pH POC ABG pCO2 POC ABG pO2 ABG pO2 ABG HCO3 ABG Base Excess ABG Hemoglobin Oxyhemoglobin Potassium Chloride Carbon Dioxide BUN Glucose POC Glucose 188 H 199 H 235 H Calcium AST Alkaline Phosphatase Albumin Urine WBC (Auto) 01/11/17 01/12/17 01/12/17 23:15 05:02 06:56 WBC RBC Hgb Hct MCV MCH RDW Plt Count Lymph % (Auto) [place] % (Auto) Eos % (Auto) Seg Neutrophils % Seg Neuts % (Manual) Lymphocytes % (Manual) Seg Neutrophils # Seg Neutrophils # Man Lymphocytes # (Manual) POC ABG pH ABG pH POC ABG pCO2 28.0 L POC ABG pO2 178 H ABG pO2 ABG HCO3 ABG Base Excess ABG Hemoglobin Oxyhemoglobin Potassium Chloride Carbon Dioxide BUN Glucose POC Glucose 155 H 119 H Calcium AST Alkaline Phosphatase Albumin Urine WBC (Auto) 01/12/17 01/13/17 01/13/17 14:50 03:37 03:37 WBC RBC 3.61 L Hgb 9.3 L Hct 28.0 L MCV 78 L MCH 26 L RDW 18.2 H Plt Count Lymph % (Auto) [place] % (Auto) Eos % (Auto) Seg Neutrophils % Seg Neuts % (Manual) Lymphocytes % (Manual) Seg Neutrophils # Seg Neutrophils # Man Lymphocytes # (Manual) POC ABG pH ABG pH POC ABG pCO2 POC ABG pO2 ABG pO2 ABG HCO3 ABG Base Excess ABG Hemoglobin Oxyhemoglobin Potassium Chloride 112.4 H Carbon Dioxide 19 L BUN Glucose 118 H POC Glucose 164 H Calcium 8.0 L AST Alkaline Phosphatase Albumin Urine WBC (Auto) 01/13/17 01/13/17 01/13/17 04:26 06:15 11:50 WBC RBC Hgb Hct MCV MCH RDW Plt Count Lymph % (Auto) [place] % (Auto) Eos % (Auto) Seg Neutrophils % Seg Neuts % (Manual) Lymphocytes % (Manual) Seg Neutrophils # Seg Neutrophils # Man Lymphocytes # (Manual) POC ABG pH 7.485 H ABG pH POC ABG pCO2 25.4 L POC ABG pO2 73 L ABG pO2 ABG HCO3 ABG Base Excess ABG Hemoglobin Oxyhemoglobin Potassium Chloride Carbon Dioxide BUN Glucose POC Glucose 116 H 171 H Calcium AST Alkaline Phosphatase Albumin Urine WBC (Auto) 01/13/17 01/14/17 01/14/17 17:31 00:02 04:50 WBC RBC 3.32 L Hgb 8.5 L Hct 26.1 L MCV 79 L MCH 26 L RDW 18.2 H Plt Count Lymph % (Auto) [place] % (Auto) 9.0 H Eos % (Auto) Seg Neutrophils % Seg Neuts % (Manual) Lymphocytes % (Manual) Seg Neutrophils # Seg Neutrophils # Man Lymphocytes # (Manual) POC ABG pH ABG pH POC ABG pCO2 POC ABG pO2 ABG pO2 ABG HCO3 ABG Base Excess ABG Hemoglobin Oxyhemoglobin Potassium Chloride Carbon Dioxide BUN Glucose POC Glucose 203 H 157 H Calcium AST Alkaline Phosphatase Albumin Urine WBC (Auto) 01/14/17 01/14/17 01/14/17 04:50 05:10 11:27 WBC RBC Hgb Hct MCV MCH RDW Plt Count Lymph % (Auto) [place] % (Auto) Eos % (Auto) Seg Neutrophils % Seg Neuts % (Manual) Lymphocytes % (Manual) Seg Neutrophils # Seg Neutrophils # Man Lymphocytes # (Manual) POC ABG pH ABG pH POC ABG pCO2 POC ABG pO2 ABG pO2 ABG HCO3 ABG Base Excess ABG Hemoglobin Oxyhemoglobin Potassium Chloride 112.5 H Carbon Dioxide BUN Glucose 149 H POC Glucose 176 H 147 H Calcium 8.1 L AST Alkaline Phosphatase Albumin Urine WBC (Auto) 01/14/17 01/14/17 01/15/17 14:07 16:52 00:04 WBC RBC Hgb Hct MCV MCH RDW Plt Count Lymph % (Auto) [place] % (Auto) Eos % (Auto) Seg Neutrophils % Seg Neuts % (Manual) Lymphocytes % (Manual) Seg Neutrophils # Seg Neutrophils # Man Lymphocytes # (Manual) POC ABG pH ABG pH POC ABG pCO2 POC ABG pO2 ABG pO2 ABG HCO3 ABG Base Excess ABG Hemoglobin Oxyhemoglobin Potassium Chloride Carbon Dioxide BUN Glucose POC Glucose 131 H 193 H Calcium AST Alkaline Phosphatase Albumin Urine WBC (Auto) 53.0 H 01/15/17 01/15/17 01/15/17 05:26 11:49 17:47 WBC RBC Hgb Hct MCV MCH RDW Plt Count Lymph % (Auto) [place] % (Auto) Eos % (Auto) Seg Neutrophils % Seg Neuts % (Manual) Lymphocytes % (Manual) Seg Neutrophils # Seg Neutrophils # Man Lymphocytes # (Manual) POC ABG pH ABG pH POC ABG pCO2 POC ABG pO2 ABG pO2 ABG HCO3 ABG Base Excess ABG Hemoglobin Oxyhemoglobin Potassium Chloride Carbon Dioxide BUN Glucose POC Glucose 215 H 121 H 211 H Calcium AST Alkaline Phosphatase Albumin Urine WBC (Auto) 01/15/17 01/16/17 01/16/17 21:33 04:30 05:28 WBC RBC Hgb Hct MCV MCH RDW Plt Count Lymph % (Auto) [place] % (Auto) Eos % (Auto) Seg Neutrophils % Seg Neuts % (Manual) Lymphocytes % (Manual) Seg Neutrophils # Seg Neutrophils # Man Lymphocytes # (Manual) POC ABG pH ABG pH 7.457 H POC ABG pCO2 POC ABG pO2 ABG pO2 55.1 L ABG HCO3 19.4 L ABG Base Excess -4.0 L ABG Hemoglobin 6.8 L Oxyhemoglobin 94.9 L Potassium Chloride Carbon Dioxide BUN Glucose POC Glucose 275 H 271 H Calcium AST Alkaline Phosphatase Albumin Urine WBC (Auto) 01/16/17 01/16/17 01/17/17 13:45 21:39 04:10 WBC 4.4 L RBC 2.98 L Hgb 7.7 L Hct 23.3 L MCV 78 L MCH 26 L RDW 18.1 H Plt Count Lymph % (Auto) [place] % (Auto) Eos % (Auto) Seg Neutrophils % Seg Neuts % (Manual) Lymphocytes % (Manual) Seg Neutrophils # Seg Neutrophils # Man Lymphocytes # (Manual) POC ABG pH ABG pH POC ABG pCO2 POC ABG pO2 ABG pO2 ABG HCO3 ABG Base Excess ABG Hemoglobin Oxyhemoglobin Potassium Chloride Carbon Dioxide BUN Glucose POC Glucose 236 H 258 H Calcium AST Alkaline Phosphatase Albumin Urine WBC (Auto) 01/17/17 01/17/17 01/17/17 04:10 04:35 12:23 WBC RBC Hgb Hct MCV MCH RDW Plt Count Lymph % (Auto) [place] % (Auto) Eos % (Auto) Seg Neutrophils % Seg Neuts % (Manual) Lymphocytes % (Manual) Seg Neutrophils # Seg Neutrophils # Man Lymphocytes # (Manual) POC ABG pH ABG pH POC ABG pCO2 POC ABG pO2 ABG pO2 160.3 H ABG HCO3 ABG Base Excess -2.3 L ABG Hemoglobin 7.9 L Oxyhemoglobin Potassium 3.3 L Chloride 108.7 H Carbon Dioxide 20 L BUN 8 L Glucose 202 H POC Glucose 321 H Calcium 7.6 L AST Alkaline Phosphatase Albumin Urine WBC (Auto) 01/17/17 01/18/17 01/18/17 16:01 05:07 12:09 WBC RBC Hgb Hct MCV MCH RDW Plt Count Lymph % (Auto) [place] % (Auto) Eos % (Auto) Seg Neutrophils % Seg Neuts % (Manual) Lymphocytes % (Manual) Seg Neutrophils # Seg Neutrophils # Man Lymphocytes # (Manual) POC ABG pH ABG pH POC ABG pCO2 POC ABG pO2 ABG pO2 ABG HCO3 ABG Base Excess ABG Hemoglobin Oxyhemoglobin Potassium Chloride Carbon Dioxide BUN Glucose POC Glucose 239 H 155 H 203 H Calcium AST Alkaline Phosphatase Albumin Urine WBC (Auto) 01/18/17 01/18/17 01/19/17 17:54 23:43 04:28 WBC RBC Hgb Hct MCV MCH RDW Plt Count Lymph % (Auto) [place] % (Auto) Eos % (Auto) Seg Neutrophils % Seg Neuts % (Manual) Lymphocytes % (Manual) Seg Neutrophils # Seg Neutrophils # Man Lymphocytes # (Manual) POC ABG pH ABG pH POC ABG pCO2 POC ABG pO2 ABG pO2 ABG HCO3 ABG Base Excess ABG Hemoglobin Oxyhemoglobin Potassium Chloride Carbon Dioxide BUN Glucose POC Glucose 132 H 125 H 182 H Calcium AST Alkaline Phosphatase Albumin Urine WBC (Auto) 01/19/17 01/19/17 01/20/17 12:11 17:23 00:12 WBC RBC Hgb Hct MCV MCH RDW Plt Count Lymph % (Auto) [place] % (Auto) Eos % (Auto) Seg Neutrophils % Seg Neuts % (Manual) Lymphocytes % (Manual) Seg Neutrophils # Seg Neutrophils # Man Lymphocytes # (Manual) POC ABG pH ABG pH POC ABG pCO2 POC ABG pO2 ABG pO2 ABG HCO3 ABG Base Excess ABG Hemoglobin Oxyhemoglobin Potassium Chloride Carbon Dioxide BUN Glucose POC Glucose 153 H 66 L 139 H Calcium AST Alkaline Phosphatase Albumin Urine WBC (Auto) 01/20/17 01/20/17 01/20/17 05:44 11:48 17:42 WBC RBC Hgb Hct MCV MCH RDW Plt Count Lymph % (Auto) [place] % (Auto) Eos % (Auto) Seg Neutrophils % Seg Neuts % (Manual) Lymphocytes % (Manual) Seg Neutrophils # Seg Neutrophils # Man Lymphocytes # (Manual) POC ABG pH ABG pH POC ABG pCO2 POC ABG pO2 ABG pO2 ABG HCO3 ABG Base Excess ABG Hemoglobin Oxyhemoglobin Potassium Chloride Carbon Dioxide BUN Glucose POC Glucose 176 H 218 H 132 H Calcium AST Alkaline Phosphatase Albumin Urine WBC (Auto) 01/20/17 01/21/17 01/21/17 23:43 05:34 11:17 WBC RBC Hgb Hct MCV MCH RDW Plt Count Lymph % (Auto) [place] % (Auto) Eos % (Auto) Seg Neutrophils % Seg Neuts % (Manual) Lymphocytes % (Manual) Seg Neutrophils # Seg Neutrophils # Man Lymphocytes # (Manual) POC ABG pH ABG pH POC ABG pCO2 POC ABG pO2 ABG pO2 ABG HCO3 ABG Base Excess ABG Hemoglobin Oxyhemoglobin Potassium Chloride Carbon Dioxide BUN Glucose POC Glucose 178 H 106 H 213 H Calcium AST Alkaline Phosphatase Albumin Urine WBC (Auto) 01/21/17 01/22/17 01/22/17 23:37 04:00 04:00 WBC RBC 3.26 L Hgb 8.3 L Hct 25.5 L MCV 78 L MCH 25 L RDW 17.9 H Plt Count Lymph % (Auto) [place] % (Auto) 7.9 H Eos % (Auto) 6.2 H Seg Neutrophils % Seg Neuts % (Manual) Lymphocytes % (Manual) Seg Neutrophils # Seg Neutrophils # Man Lymphocytes # (Manual) POC ABG pH ABG pH POC ABG pCO2 POC ABG pO2 ABG pO2 ABG HCO3 ABG Base Excess ABG Hemoglobin Oxyhemoglobin Potassium Chloride 95.5 L Carbon Dioxide 31 H D BUN Glucose 134 H POC Glucose 140 H Calcium AST 44 H Alkaline Phosphatase 379 H Albumin 2.7 L Urine WBC (Auto) 01/22/17 01/22/17 01/22/17 04:58 12:12 18:12 WBC RBC Hgb Hct MCV MCH RDW Plt Count Lymph % (Auto) [place] % (Auto) Eos % (Auto) Seg Neutrophils % Seg Neuts % (Manual) Lymphocytes % (Manual) Seg Neutrophils # Seg Neutrophils # Man Lymphocytes # (Manual) POC ABG pH ABG pH POC ABG pCO2 POC ABG pO2 ABG pO2 ABG HCO3 ABG Base Excess ABG Hemoglobin Oxyhemoglobin Potassium Chloride Carbon Dioxide BUN Glucose POC Glucose 146 H 255 H 182 H Calcium AST Alkaline Phosphatase Albumin Urine WBC (Auto) 01/22/17 01/23/17 01/23/17 23:39 04:43 12:12 WBC RBC Hgb Hct MCV MCH RDW Plt Count Lymph % (Auto) [place] % (Auto) Eos % (Auto) Seg Neutrophils % Seg Neuts % (Manual) Lymphocytes % (Manual) Seg Neutrophils # Seg Neutrophils # Man Lymphocytes # (Manual) POC ABG pH ABG pH POC ABG pCO2 POC ABG pO2 ABG pO2 ABG HCO3 ABG Base Excess ABG Hemoglobin Oxyhemoglobin Potassium Chloride Carbon Dioxide BUN Glucose POC Glucose 134 H 218 H 128 H Calcium AST Alkaline Phosphatase Albumin Urine WBC (Auto) 01/23/17 01/24/17 01/24/17 17:36 00:08 05:16 WBC RBC Hgb Hct MCV MCH RDW Plt Count Lymph % (Auto) [place] % (Auto) Eos % (Auto) Seg Neutrophils % Seg Neuts % (Manual) Lymphocytes % (Manual) Seg Neutrophils # Seg Neutrophils # Man Lymphocytes # (Manual) POC ABG pH ABG pH POC ABG pCO2 POC ABG pO2 ABG pO2 ABG HCO3 ABG Base Excess ABG Hemoglobin Oxyhemoglobin Potassium Chloride Carbon Dioxide BUN Glucose POC Glucose 156 H 129 H 169 H Calcium AST Alkaline Phosphatase Albumin Urine WBC (Auto) 01/24/17 11:40 WBC RBC Hgb Hct MCV MCH RDW Plt Count Lymph % (Auto) [place] % (Auto) Eos % (Auto) Seg Neutrophils % Seg Neuts % (Manual) Lymphocytes % (Manual) Seg Neutrophils # Seg Neutrophils # Man Lymphocytes # (Manual) POC ABG pH ABG pH POC ABG pCO2 POC ABG pO2 ABG pO2 ABG HCO3 ABG Base Excess ABG Hemoglobin Oxyhemoglobin Potassium Chloride Carbon Dioxide BUN Glucose POC Glucose 187 H Calcium AST Alkaline Phosphatase Albumin Urine WBC (Auto)
--- NOTE | 2017-01-24 15:21 | Progress Note ---
Assessment and Plan Hypoglycemic brain injury Persistent vegetative state Metabolic encephalopathy Hypoglycemia/hypothermia, resolved Acute respiratory failure mechanical ventilator greater than 96 hours Sepsis ruled out, UTI ruled out hyponatremia, Hypothyroidism IDDM Hypertension low grade Fever - Cont supportive care and current medication. Monitor vitals, if continue to spike fever may need to repeat cx - Patient is DNR- awaiting hospice placement, needs guardianship from the state to give consent, as has no family to give consent The high probability of a clinically significant, sudden or life threatening deterioration of the [neurologic, respiratory and CV] system(s) required my full and direct attention, intervention and personal management. The aggregate critical care time was [33] minutes. This time is in addition to time spent performing reported procedures but includes the following: [] Data Review and interpretation [] Patient assessment and monitoring of vital signs [] Documentation [] Medication orders and management Brief History: 51 YO Male with CKD,HTN, DM presents to ED after found down and unresponsive by his neighbor, who subsequently called EMS. Upon arrival, patient found unresponsive on the floor with a serum glucose of 21, and covered with ants with insulin syringes around him and a bottle of atenolol which still had many pills remaining, patient has a known history of alcohol abuse and delirium tremens. The patient was administered D5 approximate 500 mls during transport without change in mental status/level of consciousness. Pt seen and evaluated in ED was was found to be unable to protect his airway. Pt intubated and placed on vent support. Pt found to have evidence of hypothyroidism. He was started on Synthroid. He has since been in the ICU. The patient continued to deteriorate. He is in this grade 4 coma, brain imaging does not show any reversible cause. The patient remains in a persistent vegetative states. Sepsis has been ruled out. multicultural services librarian try to locate family, even spoke to the family who he lives with. They themselves were unaware of any family members. After ethics committee meeting on the patient. The decision was made to make him DO NOT RESUSCITATE and to transfer him to hospice. Given his very poor prognosis and poor likelihood of recovery. It was decided that was not his best interest to get trach and PEG. Therefore he'll be transferred to the hospice intubated. Microbiology 01/14/17 15:21 Peripheral/Venous Blood Culture - Final NO GROWTH AFTER 5 DAYS 01/14/17 14:15 Peripheral/Venous Blood Culture - Final NO GROWTH AFTER 5 DAYS 01/14/17 13:00 Urine,Clean Catch Urine Culture - Final 01/09/17 10:47 Peripheral/Venous Blood Culture - Final NO GROWTH AFTER 5 DAYS 01/09/17 10:16 Peripheral/Venous Blood Culture - Final NO GROWTH AFTER 5 DAYS 01/09/17 10:15 Tracheal Aspirate Sputum Culture - Final Active meds: Generic Name Dose Route Start Last Admin Trade Name Freq PRN Reason Stop Dose Admin Acetaminophen 650 mg 01/14/17 17:29 01/14/17 22:42 Tylenol FEEDTUBE 650 mg Q6H PRN Administration Non Cardiac Pain Or Temp>101 Lipase/Protease/Amylase 1 each 01/14/17 14:33 Pancreaze 10,500 Unit FEEDTUBE PRN PRN For Clogged Feeding Tube Dextrose 50 ml 01/09/17 12:27 01/10/17 06:37 D50w (25gm) Syringe IV 50 ml PRN PRN Administration Hypoglycemia Famotidine 20 mg 01/17/17 10:00 01/24/17 23:05 Pepcid PO 20 mg BID PAOLO Administration Heparin Sodium (Porcine) 5,000 unit 01/10/17 22:00 01/24/17 23:04 Heparin SUB-Q 5,000 unit Q12HR PAOLO Administration Hydralazine HCl 10 mg 01/10/17 13:01 01/22/17 18:21 Apresoline IV 10 mg Q4HR PRN Administration Hypertension Hydrophilic Ointment 1 applic 01/09/17 10:13 Vaseline Lip Therapy TP Q2HR PRN Dry Lips Insulin Aspart 0 units 01/17/17 12:00 01/25/17 06:12 Novolog SUB-Q 3 units Q6HR PAOLO Administration Protocol Insulin Detemir 5 units 01/20/17 10:00 01/24/17 11:37 Levemir SUB-Q 5 units DAILY PAOLO Administration Labetalol HCl 200 mg 01/09/17 13:00 01/24/17 23:04 Normodyne PO 200 mg BID PAOLO Administration Levothyroxine Sodium 100 mcg 01/15/17 06:00 01/25/17 06:13 Synthroid PO 100 mcg DAILY@0600 PAOLO Administration Multi-Ingred Cream/Lotion/Oil/Oint 1 applic 01/09/17 10:13 Artificial Tears Ophth Oint OU Q4HR PRN Dry Eye(s) Simple Syrup 15 ml 01/14/17 14:33 01/19/17 17:29 Simple Syrup FEEDTUBE 15 ml PRN PRN Administration Hypoglycemia Simple Syrup 30 ml 01/14/17 14:33 Simple Syrup FEEDTUBE PRN PRN Hypoglycemia Sodium Bicarbonate 325 mg 01/14/17 14:33 Sodium Bicarbonate FEEDTUBE PRN PRN For Clogged Feeding Tube Sodium Chloride 500 ml 01/09/17 11:00 Nacl 0.9% 500 Ml IV DIRECT PAOLO Hospitalist Physical - Physical exam Narrative exam: General: comatose HEENT: Moist mucous membranes, , no lymphadenopathy Neck: supple Cardiac: S1-S2 heard Lungs: mechnical ventilated breath sounds Abdomen: soft , nontender, nondistended, bowel sounds positive Extremities: no edema clubbing or cyanosis Skin: no rash or lesions Neurologic: opens eyes, has corneal reflex, pupils minimally responsive, no response to deep painful stimuli Subjective Date of service: 01/24/17 Principal diagnosis: Acute respiratory failure Interval history: patient remains comatose, no movement of extremities spiked low grade temp Objective - Constitutional Vitals: Vital Signs - 12hr 01/24/17 01/24/17 01/24/17 04:00 05:00 06:00 Temperature Pulse Rate 76 74 76 Respiratory 16 15 13 Rate Blood Pressure 106/59 126/70 135/69 O2 Sat by Pulse 98 97 97 Oximetry 01/24/17 01/24/17 01/24/17 07:00 08:00 08:55 Temperature 101.0 F H Pulse Rate 80 77 76 Respiratory 13 12 15 Rate Blood Pressure 117/66 122/64 122/64 O2 Sat by Pulse 99 99 100 Oximetry 01/24/17 01/24/17 01/24/17 09:00 10:00 10:34 Temperature Pulse Rate 75 71 71 Respiratory 18 18 Rate Blood Pressure 107/60 121/64 121/64 O2 Sat by Pulse 100 100 100 Oximetry 01/24/17 01/24/17 01/24/17 11:00 11:37 11:51 Temperature Pulse Rate 69 71 72 Respiratory 12 Rate Blood Pressure 115/61 115/61 115/61 O2 Sat by Pulse 100 100 Oximetry 01/24/17 12:00 Temperature 100.2 F H Pulse Rate Respiratory Rate Blood Pressure O2 Sat by Pulse Oximetry - Labs CBC & Chem 7: 01/22/17 04:00 01/22/17 04:00 Labs: Abnormal lab results 01/23/17 01/23/17 01/24/17 Range/Units 12:12 17:36 00:08 POC Glucose 128 H 156 H 129 H (70-105) 01/24/17 01/24/17 Range/Units 05:16 11:40 POC Glucose 169 H 187 H (70-105)
[2017-01-25] MEDS: NOVOLOG SUB-Q SCH ×4 (06:12→17:37)
[2017-01-25] MEDS: SYNTHROID PO SCH (06:13)
[2017-01-25] MEDS: TYLENOL FEEDTUBE PRN (07:47)
--- NOTE | 2017-01-25 08:55 | Progress Note ---
Assessment and Plan 51 y/o male found down, concern for sepsis and now encephalopathic requiring mechanical ventilation. No New recs 1. continue supportive care CCT 31 minutes. Subjective Date of service: 01/25/17 Principal diagnosis: Acute respiratory failure Interval history: No acute events. Remains unresponsive on Vent. Objective Vital Signs - 12hr 01/24/17 01/24/17 01/24/17 21:00 21:20 22:00 Temperature Pulse Rate 74 73 73 Respiratory 16 12 14 Rate Blood Pressure 141/73 141/73 154/74 O2 Sat by Pulse 97 100 98 Oximetry 01/24/17 01/24/17 01/24/17 23:00 23:01 23:04 Temperature 99.6 F Pulse Rate 78 79 Respiratory 14 Rate Blood Pressure 163/79 163/79 O2 Sat by Pulse 99 Oximetry 01/25/17 01/25/17 01/25/17 00:00 00:05 01:00 Temperature Pulse Rate 87 87 91 H Respiratory 15 19 Rate Blood Pressure 162/79 167/77 167/77 O2 Sat by Pulse 98 99 99 Oximetry 01/25/17 01/25/17 01/25/17 02:00 03:00 03:48 Temperature 101.5 F H Pulse Rate 84 81 Respiratory 16 14 Rate Blood Pressure 122/62 98/61 O2 Sat by Pulse 94 96 Oximetry 01/25/17 01/25/17 01/25/17 04:00 04:26 05:00 Temperature Pulse Rate 78 79 Respiratory 15 15 Rate Blood Pressure 120/64 167/73 121/67 O2 Sat by Pulse 98 100 97 Oximetry 01/25/17 01/25/17 01/25/17 06:00 07:00 07:59 Temperature Pulse Rate 78 78 Respiratory 16 14 17 Rate Blood Pressure 119/65 113/66 O2 Sat by Pulse 99 99 99 Oximetry 01/25/17 08:00 Temperature 101.3 F H Pulse Rate 80 Respiratory 14 Rate Blood Pressure 133/71 O2 Sat by Pulse 99 Oximetry Constitutional: no acute distress, comatose, other (intubated, on vent) Eyes: non-icteric ENT: oropharynx moist Neck: supple, no JVD Effort: normal Ascultation: Bilateral: clear, diminished breath sounds Cardiovascular: regular rate and rhythm Gastrointestinal: normoactive bowel sounds, soft, non-tender, non-distended Integumentary: rash (lesions all over trunk/extremities (most appear to be scabs )) Extremities: no cyanosis, no edema, pink and warm Neurologic: non-focal exam, pupils equal and round, other (unresponsive, GCS 3) Psychiatric: other (unable to obtain) CBC and BMP: 01/22/17 04:00 01/22/17 04:00 ABG, PT/INR, D-dimer: ABG POC ABG pH 7.485 (7.35-7.45) H 01/13/17 04:26 ABG pH 7.420 pH Units (7.350-7.450) 01/17/17 04:35 POC ABG pCO2 25.4 (35-45) L 01/13/17 04:26 ABG pCO2 34.5 mm Hg 01/17/17 04:35 POC ABG pO2 73 (80-105) L 01/13/17 04:26 ABG pO2 160.3 mm Hg (80.0-90.0) H 01/17/17 04:35 POC ABG HCO3 19.1 01/13/17 04:26 POC ABG Total CO2 20 01/13/17 04:26 POC ABG O2 Sat 96 01/13/17 04:26 ABG O2 Saturation 99.0 % (95.0-99.0) 01/17/17 04:35 PT/INR, D-dimer PT 14.1 Sec. (12.2-14.9) 01/17/17 04:10 INR 1.04 (0.87-1.13) 01/17/17 04:10 Abnormal lab findings: Abnormal Labs 01/09/17 01/09/17 01/09/17 12:49 13:13 14:21 WBC RBC Hgb Hct MCV MCH RDW Plt Count Lymph % (Auto) [place] % (Auto) Eos % (Auto) Seg Neutrophils % Seg Neuts % (Manual) Lymphocytes % (Manual) Seg Neutrophils # Seg Neutrophils # Man Lymphocytes # (Manual) POC ABG pH ABG pH POC ABG pCO2 POC ABG pO2 ABG pO2 ABG HCO3 ABG Base Excess ABG Hemoglobin Oxyhemoglobin Potassium Chloride Carbon Dioxide BUN Glucose POC Glucose < 40 L 128 H 65 L Calcium AST Alkaline Phosphatase Albumin Urine WBC (Auto) 01/09/17 01/09/17 01/09/17 15:09 16:28 17:14 WBC RBC Hgb Hct MCV MCH RDW Plt Count Lymph % (Auto) [place] % (Auto) Eos % (Auto) Seg Neutrophils % Seg Neuts % (Manual) Lymphocytes % (Manual) Seg Neutrophils # Seg Neutrophils # Man Lymphocytes # (Manual) POC ABG pH ABG pH POC ABG pCO2 POC ABG pO2 ABG pO2 ABG HCO3 ABG Base Excess ABG Hemoglobin Oxyhemoglobin Potassium Chloride Carbon Dioxide BUN Glucose POC Glucose 120 H 44 L 112 H Calcium AST Alkaline Phosphatase Albumin Urine WBC (Auto) 01/10/17 01/10/17 01/10/17 04:30 04:30 05:41 WBC 24.1 H RBC 3.38 L Hgb 8.5 L Hct 26.0 L MCV 77 L MCH 25 L RDW 17.9 H Plt Count 474 H Lymph % (Auto) [place] % (Auto) Eos % (Auto) Seg Neutrophils % Seg Neuts % (Manual) 88.0 H Lymphocytes % (Manual) 4.0 L Seg Neutrophils # Seg Neutrophils # Man 21.2 H Lymphocytes # (Manual) 1.0 L POC ABG pH ABG pH POC ABG pCO2 POC ABG pO2 ABG pO2 ABG HCO3 ABG Base Excess ABG Hemoglobin Oxyhemoglobin Potassium Chloride Carbon Dioxide 17 L BUN 27 H Glucose POC Glucose 68 L Calcium 7.5 L AST Alkaline Phosphatase Albumin Urine WBC (Auto) 01/10/17 01/10/17 01/10/17 05:45 07:47 10:50 WBC RBC Hgb Hct MCV MCH RDW Plt Count Lymph % (Auto) [place] % (Auto) Eos % (Auto) Seg Neutrophils % Seg Neuts % (Manual) Lymphocytes % (Manual) Seg Neutrophils # Seg Neutrophils # Man Lymphocytes # (Manual) POC ABG pH ABG pH POC ABG pCO2 26.6 L POC ABG pO2 207 H ABG pO2 ABG HCO3 ABG Base Excess ABG Hemoglobin Oxyhemoglobin Potassium Chloride Carbon Dioxide BUN Glucose POC Glucose 148 H 165 H Calcium AST Alkaline Phosphatase Albumin Urine WBC (Auto) 01/10/17 01/10/17 01/10/17 13:41 20:20 21:39 WBC RBC Hgb Hct MCV MCH RDW Plt Count Lymph % (Auto) [place] % (Auto) Eos % (Auto) Seg Neutrophils % Seg Neuts % (Manual) Lymphocytes % (Manual) Seg Neutrophils # Seg Neutrophils # Man Lymphocytes # (Manual) POC ABG pH ABG pH POC ABG pCO2 POC ABG pO2 ABG pO2 ABG HCO3 ABG Base Excess ABG Hemoglobin Oxyhemoglobin Potassium Chloride Carbon Dioxide BUN Glucose POC Glucose 114 H 150 H 175 H Calcium AST Alkaline Phosphatase Albumin Urine WBC (Auto) 01/10/17 01/11/17 01/11/17 23:24 00:19 04:06 WBC RBC Hgb Hct MCV MCH RDW Plt Count Lymph % (Auto) [place] % (Auto) Eos % (Auto) Seg Neutrophils % Seg Neuts % (Manual) Lymphocytes % (Manual) Seg Neutrophils # Seg Neutrophils # Man Lymphocytes # (Manual) POC ABG pH 7.463 H ABG pH POC ABG pCO2 26.2 L POC ABG pO2 185 H ABG pO2 ABG HCO3 ABG Base Excess ABG Hemoglobin Oxyhemoglobin Potassium Chloride Carbon Dioxide BUN Glucose POC Glucose 155 H 163 H Calcium AST Alkaline Phosphatase Albumin Urine WBC (Auto) 01/11/17 01/11/17 01/11/17 05:20 05:20 06:21 WBC 15.2 H RBC 3.40 L Hgb 8.9 L Hct 26.3 L MCV 78 L MCH 26 L RDW 18.6 H Plt Count 462 H Lymph % (Auto) 13.2 L [place] % (Auto) Eos % (Auto) Seg Neutrophils % 80.8 H Seg Neuts % (Manual) Lymphocytes % (Manual) Seg Neutrophils # 12.3 H Seg Neutrophils # Man Lymphocytes # (Manual) POC ABG pH ABG pH POC ABG pCO2 POC ABG pO2 ABG pO2 ABG HCO3 ABG Base Excess ABG Hemoglobin Oxyhemoglobin Potassium 3.4 L Chloride 111.5 H Carbon Dioxide 17 L BUN Glucose 147 H POC Glucose 139 H Calcium 8.0 L AST Alkaline Phosphatase Albumin Urine WBC (Auto) 01/11/17 01/11/17 01/11/17 07:57 11:46 16:50 WBC RBC Hgb Hct MCV MCH RDW Plt Count Lymph % (Auto) [place] % (Auto) Eos % (Auto) Seg Neutrophils % Seg Neuts % (Manual) Lymphocytes % (Manual) Seg Neutrophils # Seg Neutrophils # Man Lymphocytes # (Manual) POC ABG pH ABG pH POC ABG pCO2 POC ABG pO2 ABG pO2 ABG HCO3 ABG Base Excess ABG Hemoglobin Oxyhemoglobin Potassium Chloride Carbon Dioxide BUN Glucose POC Glucose 188 H 199 H 235 H Calcium AST Alkaline Phosphatase Albumin Urine WBC (Auto) 01/11/17 01/12/17 01/12/17 23:15 05:02 06:56 WBC RBC Hgb Hct MCV MCH RDW Plt Count Lymph % (Auto) [place] % (Auto) Eos % (Auto) Seg Neutrophils % Seg Neuts % (Manual) Lymphocytes % (Manual) Seg Neutrophils # Seg Neutrophils # Man Lymphocytes # (Manual) POC ABG pH ABG pH POC ABG pCO2 28.0 L POC ABG pO2 178 H ABG pO2 ABG HCO3 ABG Base Excess ABG Hemoglobin Oxyhemoglobin Potassium Chloride Carbon Dioxide BUN Glucose POC Glucose 155 H 119 H Calcium AST Alkaline Phosphatase Albumin Urine WBC (Auto) 01/12/17 01/13/17 01/13/17 14:50 03:37 03:37 WBC RBC 3.61 L Hgb 9.3 L Hct 28.0 L MCV 78 L MCH 26 L RDW 18.2 H Plt Count Lymph % (Auto) [place] % (Auto) Eos % (Auto) Seg Neutrophils % Seg Neuts % (Manual) Lymphocytes % (Manual) Seg Neutrophils # Seg Neutrophils # Man Lymphocytes # (Manual) POC ABG pH ABG pH POC ABG pCO2 POC ABG pO2 ABG pO2 ABG HCO3 ABG Base Excess ABG Hemoglobin Oxyhemoglobin Potassium Chloride 112.4 H Carbon Dioxide 19 L BUN Glucose 118 H POC Glucose 164 H Calcium 8.0 L AST Alkaline Phosphatase Albumin Urine WBC (Auto) 01/13/17 01/13/17 01/13/17 04:26 06:15 11:50 WBC RBC Hgb Hct MCV MCH RDW Plt Count Lymph % (Auto) [place] % (Auto) Eos % (Auto) Seg Neutrophils % Seg Neuts % (Manual) Lymphocytes % (Manual) Seg Neutrophils # Seg Neutrophils # Man Lymphocytes # (Manual) POC ABG pH 7.485 H ABG pH POC ABG pCO2 25.4 L POC ABG pO2 73 L ABG pO2 ABG HCO3 ABG Base Excess ABG Hemoglobin Oxyhemoglobin Potassium Chloride Carbon Dioxide BUN Glucose POC Glucose 116 H 171 H Calcium AST Alkaline Phosphatase Albumin Urine WBC (Auto) 01/13/17 01/14/17 01/14/17 17:31 00:02 04:50 WBC RBC 3.32 L Hgb 8.5 L Hct 26.1 L MCV 79 L MCH 26 L RDW 18.2 H Plt Count Lymph % (Auto) [place] % (Auto) 9.0 H Eos % (Auto) Seg Neutrophils % Seg Neuts % (Manual) Lymphocytes % (Manual) Seg Neutrophils # Seg Neutrophils # Man Lymphocytes # (Manual) POC ABG pH ABG pH POC ABG pCO2 POC ABG pO2 ABG pO2 ABG HCO3 ABG Base Excess ABG Hemoglobin Oxyhemoglobin Potassium Chloride Carbon Dioxide BUN Glucose POC Glucose 203 H 157 H Calcium AST Alkaline Phosphatase Albumin Urine WBC (Auto) 01/14/17 01/14/17 01/14/17 04:50 05:10 11:27 WBC RBC Hgb Hct MCV MCH RDW Plt Count Lymph % (Auto) [place] % (Auto) Eos % (Auto) Seg Neutrophils % Seg Neuts % (Manual) Lymphocytes % (Manual) Seg Neutrophils # Seg Neutrophils # Man Lymphocytes # (Manual) POC ABG pH ABG pH POC ABG pCO2 POC ABG pO2 ABG pO2 ABG HCO3 ABG Base Excess ABG Hemoglobin Oxyhemoglobin Potassium Chloride 112.5 H Carbon Dioxide BUN Glucose 149 H POC Glucose 176 H 147 H Calcium 8.1 L AST Alkaline Phosphatase Albumin Urine WBC (Auto) 01/14/17 01/14/17 01/15/17 14:07 16:52 00:04 WBC RBC Hgb Hct MCV MCH RDW Plt Count Lymph % (Auto) [place] % (Auto) Eos % (Auto) Seg Neutrophils % Seg Neuts % (Manual) Lymphocytes % (Manual) Seg Neutrophils # Seg Neutrophils # Man Lymphocytes # (Manual) POC ABG pH ABG pH POC ABG pCO2 POC ABG pO2 ABG pO2 ABG HCO3 ABG Base Excess ABG Hemoglobin Oxyhemoglobin Potassium Chloride Carbon Dioxide BUN Glucose POC Glucose 131 H 193 H Calcium AST Alkaline Phosphatase Albumin Urine WBC (Auto) 53.0 H 01/15/17 01/15/17 01/15/17 05:26 11:49 17:47 WBC RBC Hgb Hct MCV MCH RDW Plt Count Lymph % (Auto) [place] % (Auto) Eos % (Auto) Seg Neutrophils % Seg Neuts % (Manual) Lymphocytes % (Manual) Seg Neutrophils # Seg Neutrophils # Man Lymphocytes # (Manual) POC ABG pH ABG pH POC ABG pCO2 POC ABG pO2 ABG pO2 ABG HCO3 ABG Base Excess ABG Hemoglobin Oxyhemoglobin Potassium Chloride Carbon Dioxide BUN Glucose POC Glucose 215 H 121 H 211 H Calcium AST Alkaline Phosphatase Albumin Urine WBC (Auto) 01/15/17 01/16/17 01/16/17 21:33 04:30 05:28 WBC RBC Hgb Hct MCV MCH RDW Plt Count Lymph % (Auto) [place] % (Auto) Eos % (Auto) Seg Neutrophils % Seg Neuts % (Manual) Lymphocytes % (Manual) Seg Neutrophils # Seg Neutrophils # Man Lymphocytes # (Manual) POC ABG pH ABG pH 7.457 H POC ABG pCO2 POC ABG pO2 ABG pO2 55.1 L ABG HCO3 19.4 L ABG Base Excess -4.0 L ABG Hemoglobin 6.8 L Oxyhemoglobin 94.9 L Potassium Chloride Carbon Dioxide BUN Glucose POC Glucose 275 H 271 H Calcium AST Alkaline Phosphatase Albumin Urine WBC (Auto) 01/16/17 01/16/17 01/17/17 13:45 21:39 04:10 WBC 4.4 L RBC 2.98 L Hgb 7.7 L Hct 23.3 L MCV 78 L MCH 26 L RDW 18.1 H Plt Count Lymph % (Auto) [place] % (Auto) Eos % (Auto) Seg Neutrophils % Seg Neuts % (Manual) Lymphocytes % (Manual) Seg Neutrophils # Seg Neutrophils # Man Lymphocytes # (Manual) POC ABG pH ABG pH POC ABG pCO2 POC ABG pO2 ABG pO2 ABG HCO3 ABG Base Excess ABG Hemoglobin Oxyhemoglobin Potassium Chloride Carbon Dioxide BUN Glucose POC Glucose 236 H 258 H Calcium AST Alkaline Phosphatase Albumin Urine WBC (Auto) 01/17/17 01/17/17 01/17/17 04:10 04:35 12:23 WBC RBC Hgb Hct MCV MCH RDW Plt Count Lymph % (Auto) [place] % (Auto) Eos % (Auto) Seg Neutrophils % Seg Neuts % (Manual) Lymphocytes % (Manual) Seg Neutrophils # Seg Neutrophils # Man Lymphocytes # (Manual) POC ABG pH ABG pH POC ABG pCO2 POC ABG pO2 ABG pO2 160.3 H ABG HCO3 ABG Base Excess -2.3 L ABG Hemoglobin 7.9 L Oxyhemoglobin Potassium 3.3 L Chloride 108.7 H Carbon Dioxide 20 L BUN 8 L Glucose 202 H POC Glucose 321 H Calcium 7.6 L AST Alkaline Phosphatase Albumin Urine WBC (Auto) 01/17/17 01/18/17 01/18/17 16:01 05:07 12:09 WBC RBC Hgb Hct MCV MCH RDW Plt Count Lymph % (Auto) [place] % (Auto) Eos % (Auto) Seg Neutrophils % Seg Neuts % (Manual) Lymphocytes % (Manual) Seg Neutrophils # Seg Neutrophils # Man Lymphocytes # (Manual) POC ABG pH ABG pH POC ABG pCO2 POC ABG pO2 ABG pO2 ABG HCO3 ABG Base Excess ABG Hemoglobin Oxyhemoglobin Potassium Chloride Carbon Dioxide BUN Glucose POC Glucose 239 H 155 H 203 H Calcium AST Alkaline Phosphatase Albumin Urine WBC (Auto) 01/18/17 01/18/17 01/19/17 17:54 23:43 04:28 WBC RBC Hgb Hct MCV MCH RDW Plt Count Lymph % (Auto) [place] % (Auto) Eos % (Auto) Seg Neutrophils % Seg Neuts % (Manual) Lymphocytes % (Manual) Seg Neutrophils # Seg Neutrophils # Man Lymphocytes # (Manual) POC ABG pH ABG pH POC ABG pCO2 POC ABG pO2 ABG pO2 ABG HCO3 ABG Base Excess ABG Hemoglobin Oxyhemoglobin Potassium Chloride Carbon Dioxide BUN Glucose POC Glucose 132 H 125 H 182 H Calcium AST Alkaline Phosphatase Albumin Urine WBC (Auto) 01/19/17 01/19/17 01/20/17 12:11 17:23 00:12 WBC RBC Hgb Hct MCV MCH RDW Plt Count Lymph % (Auto) [place] % (Auto) Eos % (Auto) Seg Neutrophils % Seg Neuts % (Manual) Lymphocytes % (Manual) Seg Neutrophils # Seg Neutrophils # Man Lymphocytes # (Manual) POC ABG pH ABG pH POC ABG pCO2 POC ABG pO2 ABG pO2 ABG HCO3 ABG Base Excess ABG Hemoglobin Oxyhemoglobin Potassium Chloride Carbon Dioxide BUN Glucose POC Glucose 153 H 66 L 139 H Calcium AST Alkaline Phosphatase Albumin Urine WBC (Auto) 01/20/17 01/20/17 01/20/17 05:44 11:48 17:42 WBC RBC Hgb Hct MCV MCH RDW Plt Count Lymph % (Auto) [place] % (Auto) Eos % (Auto) Seg Neutrophils % Seg Neuts % (Manual) Lymphocytes % (Manual) Seg Neutrophils # Seg Neutrophils # Man Lymphocytes # (Manual) POC ABG pH ABG pH POC ABG pCO2 POC ABG pO2 ABG pO2 ABG HCO3 ABG Base Excess ABG Hemoglobin Oxyhemoglobin Potassium Chloride Carbon Dioxide BUN Glucose POC Glucose 176 H 218 H 132 H Calcium AST Alkaline Phosphatase Albumin Urine WBC (Auto) 01/20/17 01/21/17 01/21/17 23:43 05:34 11:17 WBC RBC Hgb Hct MCV MCH RDW Plt Count Lymph % (Auto) [place] % (Auto) Eos % (Auto) Seg Neutrophils % Seg Neuts % (Manual) Lymphocytes % (Manual) Seg Neutrophils # Seg Neutrophils # Man Lymphocytes # (Manual) POC ABG pH ABG pH POC ABG pCO2 POC ABG pO2 ABG pO2 ABG HCO3 ABG Base Excess ABG Hemoglobin Oxyhemoglobin Potassium Chloride Carbon Dioxide BUN Glucose POC Glucose 178 H 106 H 213 H Calcium AST Alkaline Phosphatase Albumin Urine WBC (Auto) 01/21/17 01/22/17 01/22/17 23:37 04:00 04:00 WBC RBC 3.26 L Hgb 8.3 L Hct 25.5 L MCV 78 L MCH 25 L RDW 17.9 H Plt Count Lymph % (Auto) [place] % (Auto) 7.9 H Eos % (Auto) 6.2 H Seg Neutrophils % Seg Neuts % (Manual) Lymphocytes % (Manual) Seg Neutrophils # Seg Neutrophils # Man Lymphocytes # (Manual) POC ABG pH ABG pH POC ABG pCO2 POC ABG pO2 ABG pO2 ABG HCO3 ABG Base Excess ABG Hemoglobin Oxyhemoglobin Potassium Chloride 95.5 L Carbon Dioxide 31 H D BUN Glucose 134 H POC Glucose 140 H Calcium AST 44 H Alkaline Phosphatase 379 H Albumin 2.7 L Urine WBC (Auto) 01/22/17 01/22/17 01/22/17 04:58 12:12 18:12 WBC RBC Hgb Hct MCV MCH RDW Plt Count Lymph % (Auto) [place] % (Auto) Eos % (Auto) Seg Neutrophils % Seg Neuts % (Manual) Lymphocytes % (Manual) Seg Neutrophils # Seg Neutrophils # Man Lymphocytes # (Manual) POC ABG pH ABG pH POC ABG pCO2 POC ABG pO2 ABG pO2 ABG HCO3 ABG Base Excess ABG Hemoglobin Oxyhemoglobin Potassium Chloride Carbon Dioxide BUN Glucose POC Glucose 146 H 255 H 182 H Calcium AST Alkaline Phosphatase Albumin Urine WBC (Auto) 01/22/17 01/23/17 01/23/17 23:39 04:43 12:12 WBC RBC Hgb Hct MCV MCH RDW Plt Count Lymph % (Auto) [place] % (Auto) Eos % (Auto) Seg Neutrophils % Seg Neuts % (Manual) Lymphocytes % (Manual) Seg Neutrophils # Seg Neutrophils # Man Lymphocytes # (Manual) POC ABG pH ABG pH POC ABG pCO2 POC ABG pO2 ABG pO2 ABG HCO3 ABG Base Excess ABG Hemoglobin Oxyhemoglobin Potassium Chloride Carbon Dioxide BUN Glucose POC Glucose 134 H 218 H 128 H Calcium AST Alkaline Phosphatase Albumin Urine WBC (Auto) 01/23/17 01/24/17 01/24/17 17:36 00:08 05:16 WBC RBC Hgb Hct MCV MCH RDW Plt Count Lymph % (Auto) [place] % (Auto) Eos % (Auto) Seg Neutrophils % Seg Neuts % (Manual) Lymphocytes % (Manual) Seg Neutrophils # Seg Neutrophils # Man Lymphocytes # (Manual) POC ABG pH ABG pH POC ABG pCO2 POC ABG pO2 ABG pO2 ABG HCO3 ABG Base Excess ABG Hemoglobin Oxyhemoglobin Potassium Chloride Carbon Dioxide BUN Glucose POC Glucose 156 H 129 H 169 H Calcium AST Alkaline Phosphatase Albumin Urine WBC (Auto) 01/24/17 01/24/17 01/24/17 11:40 17:43 23:23 WBC RBC Hgb Hct MCV MCH RDW Plt Count Lymph % (Auto) [place] % (Auto) Eos % (Auto) Seg Neutrophils % Seg Neuts % (Manual) Lymphocytes % (Manual) Seg Neutrophils # Seg Neutrophils # Man Lymphocytes # (Manual) POC ABG pH ABG pH POC ABG pCO2 POC ABG pO2 ABG pO2 ABG HCO3 ABG Base Excess ABG Hemoglobin Oxyhemoglobin Potassium Chloride Carbon Dioxide BUN Glucose POC Glucose 187 H 215 H 222 H Calcium AST Alkaline Phosphatase Albumin Urine WBC (Auto) 01/25/17 04:56 WBC RBC Hgb Hct MCV MCH RDW Plt Count Lymph % (Auto) [place] % (Auto) Eos % (Auto) Seg Neutrophils % Seg Neuts % (Manual) Lymphocytes % (Manual) Seg Neutrophils # Seg Neutrophils # Man Lymphocytes # (Manual) POC ABG pH ABG pH POC ABG pCO2 POC ABG pO2 ABG pO2 ABG HCO3 ABG Base Excess ABG Hemoglobin Oxyhemoglobin Potassium Chloride Carbon Dioxide BUN Glucose POC Glucose 210 H Calcium AST Alkaline Phosphatase Albumin Urine WBC (Auto)
[2017-01-25] MEDS: PEPCID PO SCH ×2 (10:58→22:12)
[2017-01-25] MEDS: NORMODYNE PO SCH ×2 (10:58→22:11)
[2017-01-25] MEDS: HEPARIN SUB-Q SCH ×2 (10:58→22:12)
[2017-01-25] MEDS: LEVEMIR (NF) SUB-Q SCH (10:58)
--- NOTE | 2017-01-25 16:26 | Progress Note ---
Assessment and Plan Hypoglycemic brain injury Persistent vegetative state Metabolic encephalopathy Hypoglycemia/hypothermia, resolved Acute respiratory failure mechanical ventilator greater than 96 hours Sepsis ruled out, UTI ruled out hyponatremia, Hypothyroidism IDDM Hypertension low grade Fever - Cont supportive care and current medication. Monitor vitals, if continue to spike fever may need to repeat cx - Patient is DNR- awaiting hospice placement, needs guardianship from the state to give consent, as has no family to give consent The high probability of a clinically significant, sudden or life threatening deterioration of the [neurologic, respiratory and CV] system(s) required my full and direct attention, intervention and personal management. The aggregate critical care time was [33] minutes. This time is in addition to time spent performing reported procedures but includes the following: [] Data Review and interpretation [] Patient assessment and monitoring of vital signs [] Documentation [] Medication orders and management Brief History: 51 YO Male with CKD,HTN, DM presents to ED after found down and unresponsive by his neighbor, who subsequently called EMS. Upon arrival, patient found unresponsive on the floor with a serum glucose of 21, and covered with ants with insulin syringes around him and a bottle of atenolol which still had many pills remaining, patient has a known history of alcohol abuse and delirium tremens. The patient was administered D5 approximate 500 mls during transport without change in mental status/level of consciousness. Pt seen and evaluated in ED was was found to be unable to protect his airway. Pt intubated and placed on vent support. Pt found to have evidence of hypothyroidism. He was started on Synthroid. He has since been in the ICU. The patient continued to deteriorate. He is in this grade 4 coma, brain imaging does not show any reversible cause. The patient remains in a persistent vegetative states. Sepsis has been ruled out. director pharmacy services try to locate family, even spoke to the family who he lives with. They themselves were unaware of any family members. After ethics committee meeting on the patient. The decision was made to make him DO NOT RESUSCITATE and to transfer him to hospice. Given his very poor prognosis and poor likelihood of recovery. It was decided that was not his best interest to get trach and PEG. Therefore he'll be transferred to the hospice intubated. Microbiology 01/14/17 15:21 Peripheral/Venous Blood Culture - Final NO GROWTH AFTER 5 DAYS 01/14/17 14:15 Peripheral/Venous Blood Culture - Final NO GROWTH AFTER 5 DAYS 01/14/17 13:00 Urine,Clean Catch Urine Culture - Final 01/09/17 10:47 Peripheral/Venous Blood Culture - Final NO GROWTH AFTER 5 DAYS 01/09/17 10:16 Peripheral/Venous Blood Culture - Final NO GROWTH AFTER 5 DAYS 01/09/17 10:15 Tracheal Aspirate Sputum Culture - Final Active meds: Generic Name Dose Route Start Last Admin Trade Name Freq PRN Reason Stop Dose Admin Acetaminophen 650 mg 01/14/17 17:29 01/14/17 22:42 Tylenol FEEDTUBE 650 mg Q6H PRN Administration Non Cardiac Pain Or Temp>101 Lipase/Protease/Amylase 1 each 01/14/17 14:33 Pancreaze 10,500 Unit FEEDTUBE PRN PRN For Clogged Feeding Tube Dextrose 50 ml 01/09/17 12:27 01/10/17 06:37 D50w (25gm) Syringe IV 50 ml PRN PRN Administration Hypoglycemia Famotidine 20 mg 01/17/17 10:00 01/24/17 23:05 Pepcid PO 20 mg BID PAOLO Administration Heparin Sodium (Porcine) 5,000 unit 01/10/17 22:00 01/24/17 23:04 Heparin SUB-Q 5,000 unit Q12HR PAOLO Administration Hydralazine HCl 10 mg 01/10/17 13:01 01/22/17 18:21 Apresoline IV 10 mg Q4HR PRN Administration Hypertension Hydrophilic Ointment 1 applic 01/09/17 10:13 Vaseline Lip Therapy TP Q2HR PRN Dry Lips Insulin Aspart 0 units 01/17/17 12:00 01/25/17 06:12 Novolog SUB-Q 3 units Q6HR PAOLO Administration Protocol Insulin Detemir 5 units 01/20/17 10:00 01/24/17 11:37 Levemir SUB-Q 5 units DAILY PAOLO Administration Labetalol HCl 200 mg 01/09/17 13:00 01/24/17 23:04 Normodyne PO 200 mg BID PAOLO Administration Levothyroxine Sodium 100 mcg 01/15/17 06:00 01/25/17 06:13 Synthroid PO 100 mcg DAILY@0600 PAOLO Administration Multi-Ingred Cream/Lotion/Oil/Oint 1 applic 01/09/17 10:13 Artificial Tears Ophth Oint OU Q4HR PRN Dry Eye(s) Simple Syrup 15 ml 01/14/17 14:33 01/19/17 17:29 Simple Syrup FEEDTUBE 15 ml PRN PRN Administration Hypoglycemia Simple Syrup 30 ml 01/14/17 14:33 Simple Syrup FEEDTUBE PRN PRN Hypoglycemia Sodium Bicarbonate 325 mg 01/14/17 14:33 Sodium Bicarbonate FEEDTUBE PRN PRN For Clogged Feeding Tube Sodium Chloride 500 ml 01/09/17 11:00 Nacl 0.9% 500 Ml IV DIRECT PAOLO Hospitalist Physical - Physical exam Narrative exam: General: comatose HEENT: Moist mucous membranes, , no lymphadenopathy Neck: supple Cardiac: S1-S2 heard Lungs: mechnical ventilated breath sounds Abdomen: soft , nontender, nondistended, bowel sounds positive Extremities: no edema clubbing or cyanosis Skin: no rash or lesions Neurologic: opens eyes, has corneal reflex, pupils minimally responsive, no response to deep painful stimuli Subjective Date of service: 01/25/17 Principal diagnosis: Acute respiratory failure Interval history: patient remains comatose, no movement of extremities Objective - Constitutional Vitals: Vital Signs - 12hr 01/25/17 01/25/17 01/25/17 05:00 06:00 07:00 Temperature Pulse Rate 79 78 78 Respiratory 15 16 14 Rate Blood Pressure 121/67 119/65 113/66 O2 Sat by Pulse 97 99 99 Oximetry 01/25/17 01/25/17 01/25/17 07:59 08:00 09:00 Temperature 101.3 F H Pulse Rate 80 77 Respiratory 17 14 15 Rate Blood Pressure 133/71 123/65 O2 Sat by Pulse 99 99 98 Oximetry 01/25/17 01/25/17 01/25/17 10:00 10:15 10:58 Temperature Pulse Rate 76 75 Respiratory 18 13 Rate Blood Pressure 128/75 128/75 O2 Sat by Pulse 100 Oximetry 01/25/17 01/25/17 01/25/17 11:00 12:00 12:28 Temperature 98.9 F Pulse Rate 73 64 64 Respiratory 16 13 Rate Blood Pressure 132/74 138/70 138/70 O2 Sat by Pulse 100 100 Oximetry 01/25/17 01/25/17 01/25/17 13:00 14:00 15:00 Temperature Pulse Rate 65 64 64 Respiratory 15 15 12 Rate Blood Pressure 133/71 140/72 130/70 O2 Sat by Pulse 100 100 100 Oximetry 01/25/17 16:00 Temperature 98.6 F Pulse Rate 63 Respiratory 14 Rate Blood Pressure 141/68 O2 Sat by Pulse 100 Oximetry - Labs CBC & Chem 7: 01/22/17 04:00 01/22/17 04:00 Labs: Abnormal lab results 01/24/17 01/24/17 01/25/17 Range/Units 17:43 23:23 04:56 POC Glucose 215 H 222 H 210 H (70-105) 01/25/17 Range/Units 11:52 POC Glucose 284 H (70-105)
[2017-01-26] MEDS: NOVOLOG SUB-Q SCH ×5 (00:05→17:59)
[2017-01-26] MEDS: APRESOLINE IV PRN (00:29)
[2017-01-26] MEDS: SYNTHROID PO SCH (05:54)
--- NOTE | 2017-01-26 09:21 | XRay Report ---
Single view chest: Compared to 01/16/17. History: Fever, respiratory failure. Findings: Normal cardiomediastinal silhouette. Stable support system. No consolidation, pneumothorax or pleural effusion. Impression: No acute cardiopulmonary findings.
--- NOTE | 2017-01-26 09:52 | Progress Note ---
Assessment and Plan Assessment and plan: Hypoglycemic brain injury. patient was found hypoglycemic. He is now in vegetative state Persistent vegetative state. Metabolic encephalopathy due to hypoglycemia Hypoglycemia/hypothermia, resolved Acute respiratory failure. He has been on mechanical ventilator greater than 96 hours Sepsis ruled out, UTI ruled out Hyponatremia, This is now resolved. Most recent Sodium 137 Hypothyroidism Diabetes mellitus type 2. Check fingerstick glucose q 6h Hypertension. BP stable low grade Fever. May repeat cultures if persistent - Patient is DNR- awaiting hospice placement, needs guardianship from the state to give consent, as has no family to give consent History Interval history: Patient found unresponsive, diagnosed with hypoglycemia with brain injury, Still unresponsive, fever Hospitalist Physical - Constitutional Vitals: Temp Pulse Resp BP Pulse Ox 97.2 F L 82 13 135/73 99 01/26/17 08:00 01/26/17 08:00 01/26/17 08:00 01/26/17 08:00 01/26/17 08:00 General appearance: Present: severe distress Results - Labs CBC & Chem 7: 01/22/17 04:00 01/22/17 04:00 Labs: Laboratory Last Values WBC 5.3 K/mm3 (4.5-11.0) 01/22/17 04:00 RBC 3.26 M/mm3 (3.65-5.03) L 01/22/17 04:00 Hgb 8.3 gm/dl (11.8-15.2) L 01/22/17 04:00 Hct 25.5 % (35.5-45.6) L 01/22/17 04:00 MCV 78 fl (84-94) L 01/22/17 04:00 MCH 25 pg (28-32) L 01/22/17 04:00 MCHC 32 % (32-34) 01/22/17 04:00 RDW 17.9 % (13.2-15.2) H 01/22/17 04:00 Plt Count 438 K/mm3 (140-440) 01/22/17 04:00 Lymph % (Auto) 34.4 % (13.4-35.0) 01/22/17 04:00 [place] % (Auto) 7.9 % (0.0-7.3) H 01/22/17 04:00 Eos % (Auto) 6.2 % (0.0-4.3) H 01/22/17 04:00 Baso % (Auto) 1.1 % (0.0-1.8) 01/22/17 04:00 Lymph # 1.8 K/mm3 (1.2-5.4) 01/22/17 04:00 [place] # 0.4 K/mm3 (0.0-0.8) 01/22/17 04:00 Eos # 0.3 K/mm3 (0.0-0.4) 01/22/17 04:00 Baso # 0.1 K/mm3 (0.0-0.1) 01/22/17 04:00 Add Manual Diff Complete 01/10/17 04:30 Total Counted 100 01/10/17 04:30 Seg Neutrophils % 50.4 % (40.0-70.0) 01/22/17 04:00 Seg Neuts % (Manual) 88.0 % (40.0-70.0) H 01/10/17 04:30 Band Neutrophils % 7.0 % 01/10/17 04:30 Lymphocytes % (Manual) 4.0 % (13.4-35.0) L 01/10/17 04:30 Reactive Lymphs % (Man) 0 % 01/10/17 04:30 Monocytes % (Manual) 1.0 % (0.0-7.3) 01/10/17 04:30 Eosinophils % (Manual) 0 % (0.0-4.3) 01/10/17 04:30 Basophils % (Manual) 0 % (0.0-1.8) 01/10/17 04:30 Metamyelocytes % 0 % 01/10/17 04:30 Myelocytes % 0 % 01/10/17 04:30 Promyelocytes % 0 % 01/10/17 04:30 Blast Cells % 0 % 01/10/17 04:30 Nucleated RBC % Not Reportable 01/10/17 04:30 Seg Neutrophils # 2.7 K/mm3 (1.8-7.7) 01/22/17 04:00 Seg Neutrophils # Man 21.2 K/mm3 (1.8-7.7) H 01/10/17 04:30 Band Neutrophils # 1.7 K/mm3 01/10/17 04:30 Lymphocytes # (Manual) 1.0 K/mm3 (1.2-5.4) L 01/10/17 04:30 Abs React Lymphs (Man) 0.0 K/mm3 01/10/17 04:30 Monocytes # (Manual) 0.2 K/mm3 (0.0-0.8) 01/10/17 04:30 Eosinophils # (Manual) 0.0 K/mm3 (0.0-0.4) 01/10/17 04:30 Basophils # (Manual) 0.0 K/mm3 (0.0-0.1) 01/10/17 04:30 Metamyelocytes # 0.0 K/mm3 01/10/17 04:30 Myelocytes # 0.0 K/mm3 01/10/17 04:30 Promyelocytes # 0.0 K/mm3 01/10/17 04:30 Blast Cells # 0.0 K/mm3 01/10/17 04:30 WBC Morphology Not Reportable 01/10/17 04:30 Hypersegmented Neuts Not Reportable 01/10/17 04:30 Hyposegmented Neuts Not Reportable 01/10/17 04:30 Hypogranular Neuts Not Reportable 01/10/17 04:30 Smudge Cells Not Reportable 01/10/17 04:30 Toxic Granulation Not Reportable 01/10/17 04:30 Toxic Vacuolation Not Reportable 01/10/17 04:30 Dohle Bodies Not Reportable 01/10/17 04:30 Pelger-Huet Anomaly Not Reportable 01/10/17 04:30 [place] Rods Not Reportable 01/10/17 04:30 Platelet Estimate Consistent w auto 01/10/17 04:30 Clumped Platelets Not Reportable 01/10/17 04:30 Plt Clumps, EDTA Not Reportable 01/10/17 04:30 Large Platelets Not Reportable 01/10/17 04:30 Giant Platelets Not Reportable 01/10/17 04:30 Platelet Satelliting Not Reportable 01/10/17 04:30 Plt Morphology Comment Not Reportable 01/10/17 04:30 RBC Morphology Not Reportable 01/10/17 04:30 Dimorphic RBCs Not Reportable 01/10/17 04:30 Polychromasia Not Reportable 01/10/17 04:30 Hypochromasia 1+ 01/10/17 04:30 Poikilocytosis Not Reportable 01/10/17 04:30 Anisocytosis Not Reportable 01/10/17 04:30 Microcytosis Not Reportable 01/10/17 04:30 Macrocytosis Not Reportable 01/10/17 04:30 Spherocytes Not Reportable 01/10/17 04:30 Pappenheimer Bodies Not Reportable 01/10/17 04:30 Sickle Cells Not Reportable 01/10/17 04:30 Target Cells Not Reportable 01/10/17 04:30 Tear Drop Cells Not Reportable 01/10/17 04:30 Ovalocytes Not Reportable 01/10/17 04:30 Helmet Cells Not Reportable 01/10/17 04:30 [place] Bodies Not Reportable 01/10/17 04:30 [place] Rings Not Reportable 01/10/17 04:30 [place] Cells Not Reportable 01/10/17 04:30 Bite Cells Not Reportable 01/10/17 04:30 Crenated Cell Not Reportable 01/10/17 04:30 Elliptocytes Not Reportable 01/10/17 04:30 Acanthocytes (Spur) Not Reportable 01/10/17 04:30 Rouleaux Not Reportable 01/10/17 04:30 Hemoglobin C Crystals Not Reportable 01/10/17 04:30 Schistocytes Not Reportable 01/10/17 04:30 Malaria parasites Not Reportable 01/10/17 04:30 [place] Bodies Not Reportable 01/10/17 04:30 Hem Pathologist Commnt No 01/10/17 04:30 PT 14.1 Sec. (12.2-14.9) 01/17/17 04:10 INR 1.04 (0.87-1.13) 01/17/17 04:10 APTT 36.6 Sec. (24.2-36.6) 01/17/17 04:10 POC ABG pH 7.485 (7.35-7.45) H 01/13/17 04:26 ABG pH 7.420 pH Units (7.350-7.450) 01/17/17 04:35 POC ABG pCO2 25.4 (35-45) L 01/13/17 04:26 ABG pCO2 34.5 mm Hg 01/17/17 04:35 POC ABG pO2 73 (80-105) L 01/13/17 04:26 ABG pO2 160.3 mm Hg (80.0-90.0) H 01/17/17 04:35 POC ABG HCO3 19.1 01/13/17 04:26 ABG HCO3 21.9 mmol/L (20.0-26.0) 01/17/17 04:35 POC ABG Total CO2 20 01/13/17 04:26 POC ABG O2 Sat 96 01/13/17 04:26 ABG O2 Saturation 99.0 % (95.0-99.0) 01/17/17 04:35 ABG O2 Content 11.1 (0.0-44) 01/17/17 04:35 POC ABG Base Excess -4 01/13/17 04:26 ABG Base Excess -2.3 mmol/L (-2.0-3.0) L 01/17/17 04:35 ABG Hemoglobin 7.9 gm/dl (14.0-18.0) L 01/17/17 04:35 ABG Carboxyhemoglobin 1.5 % (0.0-5.0) 01/17/17 04:35 ABG Methemoglobin 0.5 % (0.0-1.5) 01/17/17 04:35 VBG pH 7.284 (7.320-7.420) L 01/09/17 10:16 Oxyhemoglobin 97.1 % (95.0-99.0) 01/17/17 04:35 FiO2 30 % 01/17/17 04:35 Sodium 137 mmol/L (137-145) 01/22/17 04:00 Potassium 4.3 mmol/L (3.6-5.0) D 01/22/17 04:00 Chloride 95.5 mmol/L (98-107) L 01/22/17 04:00 Carbon Dioxide 31 mmol/L (22-30) H D 01/22/17 04:00 Anion Gap 15 mmol/L 01/22/17 04:00 BUN 18 mg/dL (9-20) 01/22/17 04:00 Creatinine 0.8 mg/dL (0.8-1.5) 01/22/17 04:00 Estimated GFR > 60 ml/min 01/22/17 04:00 BUN/Creatinine Ratio 23 % 01/22/17 04:00 Glucose 134 mg/dL (75-100) H 01/22/17 04:00 POC Glucose 199 (70-105) H 01/26/17 05:33 Lactic Acid 1.00 mmol/L (0.7-2.0) 01/09/17 10:16 Calcium 9.1 mg/dL (8.4-10.2) D 01/22/17 04:00 Phosphorus 3.60 mg/dL (2.5-4.5) 01/22/17 04:00 Magnesium 2.10 mg/dL (1.7-2.3) 01/22/17 04:00 Total Bilirubin 0.30 mg/dL (0.1-1.2) 01/22/17 04:00 AST 44 units/L (5-40) H 01/22/17 04:00 ALT 23 units/L (7-56) 01/22/17 04:00 Alkaline Phosphatase 379 units/L (35-129) H 01/22/17 04:00 Ammonia 35.0 umol/L (25-60) 01/09/17 10:16 Total Creatine Kinase 135 units/L (55-170) 01/09/17 10:16 CK-MB (CK-2) 7.1 ng/mL (0.0-4.0) H 01/09/17 10:16 CK-MB (CK-2) Rel Index 5.2 (0-4) H 01/09/17 10:16 Troponin T < 0.010 ng/mL (0.00-0.029) 01/09/17 10:16 NT-Pro-B Natriuret Pep 602.9 pg/mL (0-900) 01/09/17 10:16 Total Protein 7.9 g/dL (6.3-8.2) 01/22/17 04:00 Albumin 2.7 g/dL (3.9-5) L 01/22/17 04:00 Albumin/Globulin Ratio 0.5 % 01/22/17 04:00 TSH 52.800 mlU/mL (0.270-4.200) H 01/09/17 10:16 Free T4 0.78 ng/dL (0.76-1.46) 01/09/17 10:16 Total Cortisol 54.8 mcg/dL () 01/09/17 16:19 Urine Color Yellow (Yellow) 01/14/17 14:07 Urine Turbidity Clear (Clear) 01/14/17 14:07 Urine pH 5.0 (5.0-7.0) 01/14/17 14:07 Ur Specific [place] 1.011 (1.003-1.030) 01/14/17 14:07 Urine Protein <15 mg/dl mg/dL (Negative) 01/14/17 14:07 Urine Glucose (UA) Neg mg/dL (Negative) 01/14/17 14:07 Urine Ketones Neg mg/dL (Negative) 01/14/17 14:07 Urine Blood Sm (Negative) 01/14/17 14:07 Urine Nitrite Neg (Negative) 01/14/17 14:07 Urine Bilirubin Neg (Negative) 01/14/17 14:07 Urine Urobilinogen < 2.0 mg/dL (<2.0) 01/14/17 14:07 Ur Leukocyte Esterase Lg (Negative) 01/14/17 14:07 Urine WBC (Auto) 53.0 /HPF (0.0-6.0) H 01/14/17 14:07 Urine RBC (Auto) 12.0 /HPF (0.0-6.0) 01/14/17 14:07 Urine Bacteria (Auto) 1+ /HPF (Negative) 01/09/17 10:23 Urine Mucus Few /HPF 01/14/17 14:07 Urine Yeast (Budding) 3+ /HPF 01/14/17 14:07 Salicylates < 0.3 mg/dL (2.8-20.0) L 01/09/17 10:16 Urine Opiates Screen Presumptive negative 01/09/17 10:23 Urine Methadone Screen Presumptive negative 01/09/17 10:23 Acetaminophen < 15.0 ug/mL (10.0-30.0) 01/09/17 10:16 Ur Barbiturates Screen Presumptive negative 01/09/17 10:23 Ur Phencyclidine Scrn Presumptive negative 01/09/17 10:23 Ur Amphetamines Screen Presumptive negative 01/09/17 10:23 U Benzodiazepines Scrn Presumptive negative 01/09/17 10:23 Urine Cocaine Screen Presumptive negative 01/09/17 10:23 U Marijuana (THC) Screen Presumptive negative 10/01/17 10:23 Drugs of Abuse Note Disclamer 01/09/17 10:23 Plasma/Serum Alcohol < 0.01 gm% (0-0.07) 01/09/17 10:16
[2017-01-26] MEDS: LEVEMIR (NF) SUB-Q SCH (10:05)
[2017-01-26] MEDS: PEPCID PO SCH ×2 (10:06→21:50)
[2017-01-26] MEDS: HEPARIN SUB-Q SCH ×2 (10:06→21:52)
[2017-01-26] MEDS: NORMODYNE PO SCH ×2 (10:06→21:51)
--- NOTE | 2017-01-26 10:29 | Progress Note ---
Assessment and Plan Acute respiratory failure, hypoxia. Unable to wean patient due to baseline neurological status changes. Hypoglycemia/hypothermia - Metabolic encephalopathy. Severe. Poor EEG response/tracing, per neurology. Likely secondary to severe neurological damage Hypothyroidism; doubt myxedema coma with normal free T4 Fever. Although currently on conservative management, still some fever noted. We'll update chest x-ray/CBC UTI/SIRS Recommendations Maintain off sedation Check x-ray/CBC Continue with spontaneous breathing trials, as tolerated Waiting for final decision from administration regarding, hospice care along Guarded to poor prognosis; complex patient Critical care time with a 31 minutes of [id number] evaluation and coordination of care Subjective Date of service: 01/26/17 Principal diagnosis: Acute respiratory failure Interval history: Patient is nonresponsive Objective Vital Signs - 12hr 01/25/17 01/25/17 01/26/17 23:00 23:20 00:00 Temperature 98.9 F Pulse Rate 68 69 69 Respiratory 14 16 Rate Blood Pressure 169/74 169/74 171/75 O2 Sat by Pulse 98 100 99 Oximetry 01/26/17 01/26/17 01/26/17 00:16 00:29 01:00 Temperature Pulse Rate 68 70 76 Respiratory 12 14 Rate Blood Pressure 171/75 171/75 112/55 O2 Sat by Pulse 100 Oximetry 01/26/17 01/26/17 01/26/17 02:00 03:00 03:50 Temperature 99.0 F Pulse Rate 77 77 Respiratory 16 13 Rate Blood Pressure 117/62 116/61 O2 Sat by Pulse 98 99 Oximetry 01/26/17 01/26/17 01/26/17 04:00 04:47 05:00 Temperature Pulse Rate 77 77 77 Respiratory 15 12 Rate Blood Pressure 121/64 121/64 130/65 O2 Sat by Pulse 97 100 99 Oximetry 01/26/17 01/26/17 01/26/17 06:00 07:00 07:33 Temperature Pulse Rate 78 80 79 Respiratory 14 15 Rate Blood Pressure 125/66 106/64 106/67 O2 Sat by Pulse 98 99 100 Oximetry 01/26/17 01/26/17 08:00 10:06 Temperature 97.2 F L Pulse Rate 82 83 Respiratory 13 Rate Blood Pressure 135/73 118/68 O2 Sat by Pulse 99 Oximetry Constitutional: no acute distress, comatose, other (intubated, on vent) Eyes: non-icteric ENT: oropharynx moist Neck: supple, no JVD Effort: normal Ascultation: Bilateral: clear, diminished breath sounds Cardiovascular: regular rate and rhythm Gastrointestinal: normoactive bowel sounds, soft, non-tender, non-distended Extremities: no cyanosis, no edema, pink and warm Neurologic: non-focal exam, pupils equal and round, other (no response to pain) CBC and BMP: 01/27/17 Unknown 01/27/17 Unknown ABG, PT/INR, D-dimer: ABG POC ABG pH 7.485 (7.35-7.45) H 01/13/17 04:26 ABG pH 7.420 pH Units (7.350-7.450) 01/17/17 04:35 POC ABG pCO2 25.4 (35-45) L 01/13/17 04:26 ABG pCO2 34.5 mm Hg 01/17/17 04:35 POC ABG pO2 73 (80-105) L 01/13/17 04:26 ABG pO2 160.3 mm Hg (80.0-90.0) H 01/17/17 04:35 POC ABG HCO3 19.1 01/13/17 04:26 POC ABG Total CO2 20 01/13/17 04:26 POC ABG O2 Sat 96 01/13/17 04:26 ABG O2 Saturation 99.0 % (95.0-99.0) 01/17/17 04:35 PT/INR, D-dimer PT 14.1 Sec. (12.2-14.9) 01/17/17 04:10 INR 1.04 (0.87-1.13) 01/17/17 04:10 Abnormal lab findings: Abnormal Labs 01/09/17 01/09/17 01/09/17 12:49 13:13 14:21 WBC RBC Hgb Hct MCV MCH RDW Plt Count Lymph % (Auto) [place] % (Auto) Eos % (Auto) Seg Neutrophils % Seg Neuts % (Manual) Lymphocytes % (Manual) Seg Neutrophils # Seg Neutrophils # Man Lymphocytes # (Manual) POC ABG pH ABG pH POC ABG pCO2 POC ABG pO2 ABG pO2 ABG HCO3 ABG Base Excess ABG Hemoglobin Oxyhemoglobin Potassium Chloride Carbon Dioxide BUN Glucose POC Glucose < 40 L 128 H 65 L Calcium AST Alkaline Phosphatase Albumin Urine WBC (Auto) 01/09/17 01/09/17 01/09/17 15:09 16:28 17:14 WBC RBC Hgb Hct MCV MCH RDW Plt Count Lymph % (Auto) [place] % (Auto) Eos % (Auto) Seg Neutrophils % Seg Neuts % (Manual) Lymphocytes % (Manual) Seg Neutrophils # Seg Neutrophils # Man Lymphocytes # (Manual) POC ABG pH ABG pH POC ABG pCO2 POC ABG pO2 ABG pO2 ABG HCO3 ABG Base Excess ABG Hemoglobin Oxyhemoglobin Potassium Chloride Carbon Dioxide BUN Glucose POC Glucose 120 H 44 L 112 H Calcium AST Alkaline Phosphatase Albumin Urine WBC (Auto) 01/10/17 01/10/17 01/10/17 04:30 04:30 05:41 WBC 24.1 H RBC 3.38 L Hgb 8.5 L Hct 26.0 L MCV 77 L MCH 25 L RDW 17.9 H Plt Count 474 H Lymph % (Auto) [place] % (Auto) Eos % (Auto) Seg Neutrophils % Seg Neuts % (Manual) 88.0 H Lymphocytes % (Manual) 4.0 L Seg Neutrophils # Seg Neutrophils # Man 21.2 H Lymphocytes # (Manual) 1.0 L POC ABG pH ABG pH POC ABG pCO2 POC ABG pO2 ABG pO2 ABG HCO3 ABG Base Excess ABG Hemoglobin Oxyhemoglobin Potassium Chloride Carbon Dioxide 17 L BUN 27 H Glucose POC Glucose 68 L Calcium 7.5 L AST Alkaline Phosphatase Albumin Urine WBC (Auto) 01/10/17 01/10/17 01/10/17 05:45 07:47 10:50 WBC RBC Hgb Hct MCV MCH RDW Plt Count Lymph % (Auto) [place] % (Auto) Eos % (Auto) Seg Neutrophils % Seg Neuts % (Manual) Lymphocytes % (Manual) Seg Neutrophils # Seg Neutrophils # Man Lymphocytes # (Manual) POC ABG pH ABG pH POC ABG pCO2 26.6 L POC ABG pO2 207 H ABG pO2 ABG HCO3 ABG Base Excess ABG Hemoglobin Oxyhemoglobin Potassium Chloride Carbon Dioxide BUN Glucose POC Glucose 148 H 165 H Calcium AST Alkaline Phosphatase Albumin Urine WBC (Auto) 01/10/17 01/10/17 01/10/17 13:41 20:20 21:39 WBC RBC Hgb Hct MCV MCH RDW Plt Count Lymph % (Auto) [place] % (Auto) Eos % (Auto) Seg Neutrophils % Seg Neuts % (Manual) Lymphocytes % (Manual) Seg Neutrophils # Seg Neutrophils # Man Lymphocytes # (Manual) POC ABG pH ABG pH POC ABG pCO2 POC ABG pO2 ABG pO2 ABG HCO3 ABG Base Excess ABG Hemoglobin Oxyhemoglobin Potassium Chloride Carbon Dioxide BUN Glucose POC Glucose 114 H 150 H 175 H Calcium AST Alkaline Phosphatase Albumin Urine WBC (Auto) 01/10/17 01/11/17 01/11/17 23:24 00:19 04:06 WBC RBC Hgb Hct MCV MCH RDW Plt Count Lymph % (Auto) [place] % (Auto) Eos % (Auto) Seg Neutrophils % Seg Neuts % (Manual) Lymphocytes % (Manual) Seg Neutrophils # Seg Neutrophils # Man Lymphocytes # (Manual) POC ABG pH 7.463 H ABG pH POC ABG pCO2 26.2 L POC ABG pO2 185 H ABG pO2 ABG HCO3 ABG Base Excess ABG Hemoglobin Oxyhemoglobin Potassium Chloride Carbon Dioxide BUN Glucose POC Glucose 155 H 163 H Calcium AST Alkaline Phosphatase Albumin Urine WBC (Auto) 01/11/17 01/11/17 01/11/17 05:20 05:20 06:21 WBC 15.2 H RBC 3.40 L Hgb 8.9 L Hct 26.3 L MCV 78 L MCH 26 L RDW 18.6 H Plt Count 462 H Lymph % (Auto) 13.2 L [place] % (Auto) Eos % (Auto) Seg Neutrophils % 80.8 H Seg Neuts % (Manual) Lymphocytes % (Manual) Seg Neutrophils # 12.3 H Seg Neutrophils # Man Lymphocytes # (Manual) POC ABG pH ABG pH POC ABG pCO2 POC ABG pO2 ABG pO2 ABG HCO3 ABG Base Excess ABG Hemoglobin Oxyhemoglobin Potassium 3.4 L Chloride 111.5 H Carbon Dioxide 17 L BUN Glucose 147 H POC Glucose 139 H Calcium 8.0 L AST Alkaline Phosphatase Albumin Urine WBC (Auto) 01/11/17 01/11/17 01/11/17 07:57 11:46 16:50 WBC RBC Hgb Hct MCV MCH RDW Plt Count Lymph % (Auto) [place] % (Auto) Eos % (Auto) Seg Neutrophils % Seg Neuts % (Manual) Lymphocytes % (Manual) Seg Neutrophils # Seg Neutrophils # Man Lymphocytes # (Manual) POC ABG pH ABG pH POC ABG pCO2 POC ABG pO2 ABG pO2 ABG HCO3 ABG Base Excess ABG Hemoglobin Oxyhemoglobin Potassium Chloride Carbon Dioxide BUN Glucose POC Glucose 188 H 199 H 235 H Calcium AST Alkaline Phosphatase Albumin Urine WBC (Auto) 01/11/17 01/12/17 01/12/17 23:15 05:02 06:56 WBC RBC Hgb Hct MCV MCH RDW Plt Count Lymph % (Auto) [place] % (Auto) Eos % (Auto) Seg Neutrophils % Seg Neuts % (Manual) Lymphocytes % (Manual) Seg Neutrophils # Seg Neutrophils # Man Lymphocytes # (Manual) POC ABG pH ABG pH POC ABG pCO2 28.0 L POC ABG pO2 178 H ABG pO2 ABG HCO3 ABG Base Excess ABG Hemoglobin Oxyhemoglobin Potassium Chloride Carbon Dioxide BUN Glucose POC Glucose 155 H 119 H Calcium AST Alkaline Phosphatase Albumin Urine WBC (Auto) 01/12/17 01/13/17 01/13/17 14:50 03:37 03:37 WBC RBC 3.61 L Hgb 9.3 L Hct 28.0 L MCV 78 L MCH 26 L RDW 18.2 H Plt Count Lymph % (Auto) [place] % (Auto) Eos % (Auto) Seg Neutrophils % Seg Neuts % (Manual) Lymphocytes % (Manual) Seg Neutrophils # Seg Neutrophils # Man Lymphocytes # (Manual) POC ABG pH ABG pH POC ABG pCO2 POC ABG pO2 ABG pO2 ABG HCO3 ABG Base Excess ABG Hemoglobin Oxyhemoglobin Potassium Chloride 112.4 H Carbon Dioxide 19 L BUN Glucose 118 H POC Glucose 164 H Calcium 8.0 L AST Alkaline Phosphatase Albumin Urine WBC (Auto) 01/13/17 01/13/17 01/13/17 04:26 06:15 11:50 WBC RBC Hgb Hct MCV MCH RDW Plt Count Lymph % (Auto) [place] % (Auto) Eos % (Auto) Seg Neutrophils % Seg Neuts % (Manual) Lymphocytes % (Manual) Seg Neutrophils # Seg Neutrophils # Man Lymphocytes # (Manual) POC ABG pH 7.485 H ABG pH POC ABG pCO2 25.4 L POC ABG pO2 73 L ABG pO2 ABG HCO3 ABG Base Excess ABG Hemoglobin Oxyhemoglobin Potassium Chloride Carbon Dioxide BUN Glucose POC Glucose 116 H 171 H Calcium AST Alkaline Phosphatase Albumin Urine WBC (Auto) 01/13/17 01/14/17 01/14/17 17:31 00:02 04:50 WBC RBC 3.32 L Hgb 8.5 L Hct 26.1 L MCV 79 L MCH 26 L RDW 18.2 H Plt Count Lymph % (Auto) [place] % (Auto) 9.0 H Eos % (Auto) Seg Neutrophils % Seg Neuts % (Manual) Lymphocytes % (Manual) Seg Neutrophils # Seg Neutrophils # Man Lymphocytes # (Manual) POC ABG pH ABG pH POC ABG pCO2 POC ABG pO2 ABG pO2 ABG HCO3 ABG Base Excess ABG Hemoglobin Oxyhemoglobin Potassium Chloride Carbon Dioxide BUN Glucose POC Glucose 203 H 157 H Calcium AST Alkaline Phosphatase Albumin Urine WBC (Auto) 01/14/17 01/14/17 01/14/17 04:50 05:10 11:27 WBC RBC Hgb Hct MCV MCH RDW Plt Count Lymph % (Auto) [place] % (Auto) Eos % (Auto) Seg Neutrophils % Seg Neuts % (Manual) Lymphocytes % (Manual) Seg Neutrophils # Seg Neutrophils # Man Lymphocytes # (Manual) POC ABG pH ABG pH POC ABG pCO2 POC ABG pO2 ABG pO2 ABG HCO3 ABG Base Excess ABG Hemoglobin Oxyhemoglobin Potassium Chloride 112.5 H Carbon Dioxide BUN Glucose 149 H POC Glucose 176 H 147 H Calcium 8.1 L AST Alkaline Phosphatase Albumin Urine WBC (Auto) 01/14/17 01/14/17 01/15/17 14:07 16:52 00:04 WBC RBC Hgb Hct MCV MCH RDW Plt Count Lymph % (Auto) [place] % (Auto) Eos % (Auto) Seg Neutrophils % Seg Neuts % (Manual) Lymphocytes % (Manual) Seg Neutrophils # Seg Neutrophils # Man Lymphocytes # (Manual) POC ABG pH ABG pH POC ABG pCO2 POC ABG pO2 ABG pO2 ABG HCO3 ABG Base Excess ABG Hemoglobin Oxyhemoglobin Potassium Chloride Carbon Dioxide BUN Glucose POC Glucose 131 H 193 H Calcium AST Alkaline Phosphatase Albumin Urine WBC (Auto) 53.0 H 01/15/17 01/15/17 01/15/17 05:26 11:49 17:47 WBC RBC Hgb Hct MCV MCH RDW Plt Count Lymph % (Auto) [place] % (Auto) Eos % (Auto) Seg Neutrophils % Seg Neuts % (Manual) Lymphocytes % (Manual) Seg Neutrophils # Seg Neutrophils # Man Lymphocytes # (Manual) POC ABG pH ABG pH POC ABG pCO2 POC ABG pO2 ABG pO2 ABG HCO3 ABG Base Excess ABG Hemoglobin Oxyhemoglobin Potassium Chloride Carbon Dioxide BUN Glucose POC Glucose 215 H 121 H 211 H Calcium AST Alkaline Phosphatase Albumin Urine WBC (Auto) 01/15/17 01/16/17 01/16/17 21:33 04:30 05:28 WBC RBC Hgb Hct MCV MCH RDW Plt Count Lymph % (Auto) [place] % (Auto) Eos % (Auto) Seg Neutrophils % Seg Neuts % (Manual) Lymphocytes % (Manual) Seg Neutrophils # Seg Neutrophils # Man Lymphocytes # (Manual) POC ABG pH ABG pH 7.457 H POC ABG pCO2 POC ABG pO2 ABG pO2 55.1 L ABG HCO3 19.4 L ABG Base Excess -4.0 L ABG Hemoglobin 6.8 L Oxyhemoglobin 94.9 L Potassium Chloride Carbon Dioxide BUN Glucose POC Glucose 275 H 271 H Calcium AST Alkaline Phosphatase Albumin Urine WBC (Auto) 01/16/17 01/16/17 01/17/17 13:45 21:39 04:10 WBC 4.4 L RBC 2.98 L Hgb 7.7 L Hct 23.3 L MCV 78 L MCH 26 L RDW 18.1 H Plt Count Lymph % (Auto) [place] % (Auto) Eos % (Auto) Seg Neutrophils % Seg Neuts % (Manual) Lymphocytes % (Manual) Seg Neutrophils # Seg Neutrophils # Man Lymphocytes # (Manual) POC ABG pH ABG pH POC ABG pCO2 POC ABG pO2 ABG pO2 ABG HCO3 ABG Base Excess ABG Hemoglobin Oxyhemoglobin Potassium Chloride Carbon Dioxide BUN Glucose POC Glucose 236 H 258 H Calcium AST Alkaline Phosphatase Albumin Urine WBC (Auto) 01/17/17 01/17/17 01/17/17 04:10 04:35 12:23 WBC RBC Hgb Hct MCV MCH RDW Plt Count Lymph % (Auto) [place] % (Auto) Eos % (Auto) Seg Neutrophils % Seg Neuts % (Manual) Lymphocytes % (Manual) Seg Neutrophils # Seg Neutrophils # Man Lymphocytes # (Manual) POC ABG pH ABG pH POC ABG pCO2 POC ABG pO2 ABG pO2 160.3 H ABG HCO3 ABG Base Excess -2.3 L ABG Hemoglobin 7.9 L Oxyhemoglobin Potassium 3.3 L Chloride 108.7 H Carbon Dioxide 20 L BUN 8 L Glucose 202 H POC Glucose 321 H Calcium 7.6 L AST Alkaline Phosphatase Albumin Urine WBC (Auto) 01/17/17 01/18/17 01/18/17 16:01 05:07 12:09 WBC RBC Hgb Hct MCV MCH RDW Plt Count Lymph % (Auto) [place] % (Auto) Eos % (Auto) Seg Neutrophils % Seg Neuts % (Manual) Lymphocytes % (Manual) Seg Neutrophils # Seg Neutrophils # Man Lymphocytes # (Manual) POC ABG pH ABG pH POC ABG pCO2 POC ABG pO2 ABG pO2 ABG HCO3 ABG Base Excess ABG Hemoglobin Oxyhemoglobin Potassium Chloride Carbon Dioxide BUN Glucose POC Glucose 239 H 155 H 203 H Calcium AST Alkaline Phosphatase Albumin Urine WBC (Auto) 01/18/17 01/18/17 01/19/17 17:54 23:43 04:28 WBC RBC Hgb Hct MCV MCH RDW Plt Count Lymph % (Auto) [place] % (Auto) Eos % (Auto) Seg Neutrophils % Seg Neuts % (Manual) Lymphocytes % (Manual) Seg Neutrophils # Seg Neutrophils # Man Lymphocytes # (Manual) POC ABG pH ABG pH POC ABG pCO2 POC ABG pO2 ABG pO2 ABG HCO3 ABG Base Excess ABG Hemoglobin Oxyhemoglobin Potassium Chloride Carbon Dioxide BUN Glucose POC Glucose 132 H 125 H 182 H Calcium AST Alkaline Phosphatase Albumin Urine WBC (Auto) 01/19/17 01/19/17 01/20/17 12:11 17:23 00:12 WBC RBC Hgb Hct MCV MCH RDW Plt Count Lymph % (Auto) [place] % (Auto) Eos % (Auto) Seg Neutrophils % Seg Neuts % (Manual) Lymphocytes % (Manual) Seg Neutrophils # Seg Neutrophils # Man Lymphocytes # (Manual) POC ABG pH ABG pH POC ABG pCO2 POC ABG pO2 ABG pO2 ABG HCO3 ABG Base Excess ABG Hemoglobin Oxyhemoglobin Potassium Chloride Carbon Dioxide BUN Glucose POC Glucose 153 H 66 L 139 H Calcium AST Alkaline Phosphatase Albumin Urine WBC (Auto) 01/20/17 01/20/17 01/20/17 05:44 11:48 17:42 WBC RBC Hgb Hct MCV MCH RDW Plt Count Lymph % (Auto) [place] % (Auto) Eos % (Auto) Seg Neutrophils % Seg Neuts % (Manual) Lymphocytes % (Manual) Seg Neutrophils # Seg Neutrophils # Man Lymphocytes # (Manual) POC ABG pH ABG pH POC ABG pCO2 POC ABG pO2 ABG pO2 ABG HCO3 ABG Base Excess ABG Hemoglobin Oxyhemoglobin Potassium Chloride Carbon Dioxide BUN Glucose POC Glucose 176 H 218 H 132 H Calcium AST Alkaline Phosphatase Albumin Urine WBC (Auto) 01/20/17 01/21/17 01/21/17 23:43 05:34 11:17 WBC RBC Hgb Hct MCV MCH RDW Plt Count Lymph % (Auto) [place] % (Auto) Eos % (Auto) Seg Neutrophils % Seg Neuts % (Manual) Lymphocytes % (Manual) Seg Neutrophils # Seg Neutrophils # Man Lymphocytes # (Manual) POC ABG pH ABG pH POC ABG pCO2 POC ABG pO2 ABG pO2 ABG HCO3 ABG Base Excess ABG Hemoglobin Oxyhemoglobin Potassium Chloride Carbon Dioxide BUN Glucose POC Glucose 178 H 106 H 213 H Calcium AST Alkaline Phosphatase Albumin Urine WBC (Auto) 01/21/17 01/22/17 01/22/17 23:37 04:00 04:00 WBC RBC 3.26 L Hgb 8.3 L Hct 25.5 L MCV 78 L MCH 25 L RDW 17.9 H Plt Count Lymph % (Auto) [place] % (Auto) 7.9 H Eos % (Auto) 6.2 H Seg Neutrophils % Seg Neuts % (Manual) Lymphocytes % (Manual) Seg Neutrophils # Seg Neutrophils # Man Lymphocytes # (Manual) POC ABG pH ABG pH POC ABG pCO2 POC ABG pO2 ABG pO2 ABG HCO3 ABG Base Excess ABG Hemoglobin Oxyhemoglobin Potassium Chloride 95.5 L Carbon Dioxide 31 H D BUN Glucose 134 H POC Glucose 140 H Calcium AST 44 H Alkaline Phosphatase 379 H Albumin 2.7 L Urine WBC (Auto) 01/22/17 01/22/17 01/22/17 04:58 12:12 18:12 WBC RBC Hgb Hct MCV MCH RDW Plt Count Lymph % (Auto) [place] % (Auto) Eos % (Auto) Seg Neutrophils % Seg Neuts % (Manual) Lymphocytes % (Manual) Seg Neutrophils # Seg Neutrophils # Man Lymphocytes # (Manual) POC ABG pH ABG pH POC ABG pCO2 POC ABG pO2 ABG pO2 ABG HCO3 ABG Base Excess ABG Hemoglobin Oxyhemoglobin Potassium Chloride Carbon Dioxide BUN Glucose POC Glucose 146 H 255 H 182 H Calcium AST Alkaline Phosphatase Albumin Urine WBC (Auto) 01/22/17 01/23/17 01/23/17 23:39 04:43 12:12 WBC RBC Hgb Hct MCV MCH RDW Plt Count Lymph % (Auto) [place] % (Auto) Eos % (Auto) Seg Neutrophils % Seg Neuts % (Manual) Lymphocytes % (Manual) Seg Neutrophils # Seg Neutrophils # Man Lymphocytes # (Manual) POC ABG pH ABG pH POC ABG pCO2 POC ABG pO2 ABG pO2 ABG HCO3 ABG Base Excess ABG Hemoglobin Oxyhemoglobin Potassium Chloride Carbon Dioxide BUN Glucose POC Glucose 134 H 218 H 128 H Calcium AST Alkaline Phosphatase Albumin Urine WBC (Auto) 01/23/17 01/24/17 01/24/17 17:36 00:08 05:16 WBC RBC Hgb Hct MCV MCH RDW Plt Count Lymph % (Auto) [place] % (Auto) Eos % (Auto) Seg Neutrophils % Seg Neuts % (Manual) Lymphocytes % (Manual) Seg Neutrophils # Seg Neutrophils # Man Lymphocytes # (Manual) POC ABG pH ABG pH POC ABG pCO2 POC ABG pO2 ABG pO2 ABG HCO3 ABG Base Excess ABG Hemoglobin Oxyhemoglobin Potassium Chloride Carbon Dioxide BUN Glucose POC Glucose 156 H 129 H 169 H Calcium AST Alkaline Phosphatase Albumin Urine WBC (Auto) 01/24/17 01/24/17 01/24/17 11:40 17:43 23:23 WBC RBC Hgb Hct MCV MCH RDW Plt Count Lymph % (Auto) [place] % (Auto) Eos % (Auto) Seg Neutrophils % Seg Neuts % (Manual) Lymphocytes % (Manual) Seg Neutrophils # Seg Neutrophils # Man Lymphocytes # (Manual) POC ABG pH ABG pH POC ABG pCO2 POC ABG pO2 ABG pO2 ABG HCO3 ABG Base Excess ABG Hemoglobin Oxyhemoglobin Potassium Chloride Carbon Dioxide BUN Glucose POC Glucose 187 H 215 H 222 H Calcium AST Alkaline Phosphatase Albumin Urine WBC (Auto) 01/25/17 01/25/17 01/25/17 04:56 11:52 17:37 WBC RBC Hgb Hct MCV MCH RDW Plt Count Lymph % (Auto) [place] % (Auto) Eos % (Auto) Seg Neutrophils % Seg Neuts % (Manual) Lymphocytes % (Manual) Seg Neutrophils # Seg Neutrophils # Man Lymphocytes # (Manual) POC ABG pH ABG pH POC ABG pCO2 POC ABG pO2 ABG pO2 ABG HCO3 ABG Base Excess ABG Hemoglobin Oxyhemoglobin Potassium Chloride Carbon Dioxide BUN Glucose POC Glucose 210 H 284 H 218 H Calcium AST Alkaline Phosphatase Albumin Urine WBC (Auto) 01/26/17 01/26/17 00:02 05:33 WBC RBC Hgb Hct MCV MCH RDW Plt Count Lymph % (Auto) [place] % (Auto) Eos % (Auto) Seg Neutrophils % Seg Neuts % (Manual) Lymphocytes % (Manual) Seg Neutrophils # Seg Neutrophils # Man Lymphocytes # (Manual) POC ABG pH ABG pH POC ABG pCO2 POC ABG pO2 ABG pO2 ABG HCO3 ABG Base Excess ABG Hemoglobin Oxyhemoglobin Potassium Chloride Carbon Dioxide BUN Glucose POC Glucose 192 H 199 H Calcium AST Alkaline Phosphatase Albumin Urine WBC (Auto)
[2017-01-27] MEDS: TYLENOL FEEDTUBE PRN (00:12)
[2017-01-27] MEDS: NOVOLOG SUB-Q SCH ×4 (00:13→18:18)
[2017-01-27] MEDS: SYNTHROID PO SCH (05:22)
[2017-01-27 05:40] LABS: Hematocrit 25.5 % (35.5-45.6); Hemoglobin 8.5 gm/dl (11.8-15.2); Mean Corpuscular HGB Conc 33 % (32-34); Mean Corpuscular Hemoglobin 26 pg (28-32); Mean Corpuscular Volume 78 fl (84-94); Platelet Count 601 K/mm3 (140-440); Red Blood Count 3.28 M/mm3 (3.65-5.03); Red Cell Distribution Width 16.8 % (13.2-15.2)
[2017-01-27 06:05] LABS: BUN/Creatinine Ratio 40; Blood Urea Nitrogen 44 mg/dL (9-20); Hemolysis Index 0
--- NOTE | 2017-01-27 07:50 | Progress Note ---
Assessment and Plan Acute respiratory failure, hypoxia. Unable to wean patient Hypoglycemia/hypothermia - controlled Metabolic encephalopathy. Severe. Poor EEG response/tracing, per neurology. Fever.CXR unremarkable, some increase in WBC. Also right IJ since admission Hypothyroidism; doubt myxedema coma with normal free T4 UTI/SIRS Recommendations Keep off sedation SVT as tolerated, monitor ventilatory response Discontinue right IJ. Continue with IV lines Placement, POA per administrative process,hospice Overall poor prognosis; complex patient Critical care time with a 31 minutes of [id number] evaluation and coordination of care Subjective Date of service: 01/27/17 Principal diagnosis: Acute respiratory failure,toxic encephalopathy,vegetative state Interval history: Patient is nonresponsive Objective Vital Signs - 12hr 01/26/17 01/26/17 01/26/17 19:55 20:00 21:00 Temperature 100.6 F H Pulse Rate 83 86 Respiratory 17 17 Rate Blood Pressure 129/67 132/67 O2 Sat by Pulse 100 100 Oximetry 01/26/17 01/26/17 01/26/17 21:18 21:51 22:00 Temperature Pulse Rate 88 92 H 95 H Respiratory 16 16 Rate Blood Pressure 132/67 132/67 98/59 O2 Sat by Pulse 100 Oximetry 01/26/17 01/26/17 01/27/17 23:00 23:19 00:00 Temperature 101.9 F H Pulse Rate 90 89 88 Respiratory 20 19 Rate Blood Pressure 110/67 110/67 114/67 O2 Sat by Pulse 100 98 Oximetry 01/27/17 01/27/17 01/27/17 01:00 02:00 03:00 Temperature Pulse Rate 89 89 89 Respiratory 17 22 24 Rate Blood Pressure 101/66 90/58 95/56 O2 Sat by Pulse 100 100 100 Oximetry 01/27/17 01/27/17 01/27/17 04:00 04:22 05:00 Temperature 99.3 F Pulse Rate 85 82 79 Respiratory 20 18 Rate Blood Pressure 94/59 94/59 107/67 O2 Sat by Pulse 99 97 100 Oximetry 01/27/17 06:00 Temperature Pulse Rate 77 Respiratory 16 Rate Blood Pressure 117/72 O2 Sat by Pulse 99 Oximetry Constitutional: no acute distress, comatose, other (intubated, on vent) Eyes: non-icteric ENT: oropharynx moist Neck: supple, no JVD Effort: normal Ascultation: Bilateral: clear, diminished breath sounds Cardiovascular: regular rate and rhythm Gastrointestinal: normoactive bowel sounds, soft, non-tender, non-distended Integumentary: normal Extremities: no cyanosis, no edema, pink and warm Neurologic: non-focal exam, pupils equal and round, other (no response to pain, no doll eyes. Poor corneals) Psychiatric: other (unable to obtain) CBC and BMP: 01/27/17 Unknown 01/27/17 Unknown ABG, PT/INR, D-dimer: ABG POC ABG pH 7.485 (7.35-7.45) H 01/13/17 04:26 ABG pH 7.420 pH Units (7.350-7.450) 01/17/17 04:35 POC ABG pCO2 25.4 (35-45) L 01/13/17 04:26 ABG pCO2 34.5 mm Hg 01/17/17 04:35 POC ABG pO2 73 (80-105) L 01/13/17 04:26 ABG pO2 160.3 mm Hg (80.0-90.0) H 01/17/17 04:35 POC ABG HCO3 19.1 01/13/17 04:26 POC ABG Total CO2 20 01/13/17 04:26 POC ABG O2 Sat 96 01/13/17 04:26 ABG O2 Saturation 99.0 % (95.0-99.0) 01/17/17 04:35 PT/INR, D-dimer PT 14.1 Sec. (12.2-14.9) 01/17/17 04:10 INR 1.04 (0.87-1.13) 01/17/17 04:10 Abnormal lab findings: Abnormal Labs 01/09/17 01/09/17 01/09/17 12:49 13:13 14:21 WBC RBC Hgb Hct MCV MCH RDW Plt Count Lymph % (Auto) [place] % (Auto) Eos % (Auto) Seg Neutrophils % Seg Neuts % (Manual) Lymphocytes % (Manual) Seg Neutrophils # Seg Neutrophils # Man Lymphocytes # (Manual) POC ABG pH ABG pH POC ABG pCO2 POC ABG pO2 ABG pO2 ABG HCO3 ABG Base Excess ABG Hemoglobin Oxyhemoglobin Sodium Potassium Chloride Carbon Dioxide BUN Glucose POC Glucose < 40 L 128 H 65 L Calcium AST Alkaline Phosphatase Albumin Urine WBC (Auto) 01/09/17 01/09/17 01/09/17 15:09 16:28 17:14 WBC RBC Hgb Hct MCV MCH RDW Plt Count Lymph % (Auto) [place] % (Auto) Eos % (Auto) Seg Neutrophils % Seg Neuts % (Manual) Lymphocytes % (Manual) Seg Neutrophils # Seg Neutrophils # Man Lymphocytes # (Manual) POC ABG pH ABG pH POC ABG pCO2 POC ABG pO2 ABG pO2 ABG HCO3 ABG Base Excess ABG Hemoglobin Oxyhemoglobin Sodium Potassium Chloride Carbon Dioxide BUN Glucose POC Glucose 120 H 44 L 112 H Calcium AST Alkaline Phosphatase Albumin Urine WBC (Auto) 01/10/17 01/10/17 01/10/17 04:30 04:30 05:41 WBC 24.1 H RBC 3.38 L Hgb 8.5 L Hct 26.0 L MCV 77 L MCH 25 L RDW 17.9 H Plt Count 474 H Lymph % (Auto) [place] % (Auto) Eos % (Auto) Seg Neutrophils % Seg Neuts % (Manual) 88.0 H Lymphocytes % (Manual) 4.0 L Seg Neutrophils # Seg Neutrophils # Man 21.2 H Lymphocytes # (Manual) 1.0 L POC ABG pH ABG pH POC ABG pCO2 POC ABG pO2 ABG pO2 ABG HCO3 ABG Base Excess ABG Hemoglobin Oxyhemoglobin Sodium Potassium Chloride Carbon Dioxide 17 L BUN 27 H Glucose POC Glucose 68 L Calcium 7.5 L AST Alkaline Phosphatase Albumin Urine WBC (Auto) 01/10/17 01/10/17 01/10/17 05:45 07:47 10:50 WBC RBC Hgb Hct MCV MCH RDW Plt Count Lymph % (Auto) [place] % (Auto) Eos % (Auto) Seg Neutrophils % Seg Neuts % (Manual) Lymphocytes % (Manual) Seg Neutrophils # Seg Neutrophils # Man Lymphocytes # (Manual) POC ABG pH ABG pH POC ABG pCO2 26.6 L POC ABG pO2 207 H ABG pO2 ABG HCO3 ABG Base Excess ABG Hemoglobin Oxyhemoglobin Sodium Potassium Chloride Carbon Dioxide BUN Glucose POC Glucose 148 H 165 H Calcium AST Alkaline Phosphatase Albumin Urine WBC (Auto) 01/10/17 01/10/17 01/10/17 13:41 20:20 21:39 WBC RBC Hgb Hct MCV MCH RDW Plt Count Lymph % (Auto) [place] % (Auto) Eos % (Auto) Seg Neutrophils % Seg Neuts % (Manual) Lymphocytes % (Manual) Seg Neutrophils # Seg Neutrophils # Man Lymphocytes # (Manual) POC ABG pH ABG pH POC ABG pCO2 POC ABG pO2 ABG pO2 ABG HCO3 ABG Base Excess ABG Hemoglobin Oxyhemoglobin Sodium Potassium Chloride Carbon Dioxide BUN Glucose POC Glucose 114 H 150 H 175 H Calcium AST Alkaline Phosphatase Albumin Urine WBC (Auto) 01/10/17 01/11/17 01/11/17 23:24 00:19 04:06 WBC RBC Hgb Hct MCV MCH RDW Plt Count Lymph % (Auto) [place] % (Auto) Eos % (Auto) Seg Neutrophils % Seg Neuts % (Manual) Lymphocytes % (Manual) Seg Neutrophils # Seg Neutrophils # Man Lymphocytes # (Manual) POC ABG pH 7.463 H ABG pH POC ABG pCO2 26.2 L POC ABG pO2 185 H ABG pO2 ABG HCO3 ABG Base Excess ABG Hemoglobin Oxyhemoglobin Sodium Potassium Chloride Carbon Dioxide BUN Glucose POC Glucose 155 H 163 H Calcium AST Alkaline Phosphatase Albumin Urine WBC (Auto) 01/11/17 01/11/17 01/11/17 05:20 05:20 06:21 WBC 15.2 H RBC 3.40 L Hgb 8.9 L Hct 26.3 L MCV 78 L MCH 26 L RDW 18.6 H Plt Count 462 H Lymph % (Auto) 13.2 L [place] % (Auto) Eos % (Auto) Seg Neutrophils % 80.8 H Seg Neuts % (Manual) Lymphocytes % (Manual) Seg Neutrophils # 12.3 H Seg Neutrophils # Man Lymphocytes # (Manual) POC ABG pH ABG pH POC ABG pCO2 POC ABG pO2 ABG pO2 ABG HCO3 ABG Base Excess ABG Hemoglobin Oxyhemoglobin Sodium Potassium 3.4 L Chloride 111.5 H Carbon Dioxide 17 L BUN Glucose 147 H POC Glucose 139 H Calcium 8.0 L AST Alkaline Phosphatase Albumin Urine WBC (Auto) 01/11/17 01/11/17 01/11/17 07:57 11:46 16:50 WBC RBC Hgb Hct MCV MCH RDW Plt Count Lymph % (Auto) [place] % (Auto) Eos % (Auto) Seg Neutrophils % Seg Neuts % (Manual) Lymphocytes % (Manual) Seg Neutrophils # Seg Neutrophils # Man Lymphocytes # (Manual) POC ABG pH ABG pH POC ABG pCO2 POC ABG pO2 ABG pO2 ABG HCO3 ABG Base Excess ABG Hemoglobin Oxyhemoglobin Sodium Potassium Chloride Carbon Dioxide BUN Glucose POC Glucose 188 H 199 H 235 H Calcium AST Alkaline Phosphatase Albumin Urine WBC (Auto) 01/11/17 01/12/17 01/12/17 23:15 05:02 06:56 WBC RBC Hgb Hct MCV MCH RDW Plt Count Lymph % (Auto) [place] % (Auto) Eos % (Auto) Seg Neutrophils % Seg Neuts % (Manual) Lymphocytes % (Manual) Seg Neutrophils # Seg Neutrophils # Man Lymphocytes # (Manual) POC ABG pH ABG pH POC ABG pCO2 28.0 L POC ABG pO2 178 H ABG pO2 ABG HCO3 ABG Base Excess ABG Hemoglobin Oxyhemoglobin Sodium Potassium Chloride Carbon Dioxide BUN Glucose POC Glucose 155 H 119 H Calcium AST Alkaline Phosphatase Albumin Urine WBC (Auto) 01/12/17 01/13/17 01/13/17 14:50 03:37 03:37 WBC RBC 3.61 L Hgb 9.3 L Hct 28.0 L MCV 78 L MCH 26 L RDW 18.2 H Plt Count Lymph % (Auto) [place] % (Auto) Eos % (Auto) Seg Neutrophils % Seg Neuts % (Manual) Lymphocytes % (Manual) Seg Neutrophils # Seg Neutrophils # Man Lymphocytes # (Manual) POC ABG pH ABG pH POC ABG pCO2 POC ABG pO2 ABG pO2 ABG HCO3 ABG Base Excess ABG Hemoglobin Oxyhemoglobin Sodium Potassium Chloride 112.4 H Carbon Dioxide 19 L BUN Glucose 118 H POC Glucose 164 H Calcium 8.0 L AST Alkaline Phosphatase Albumin Urine WBC (Auto) 01/13/17 01/13/17 01/13/17 04:26 06:15 11:50 WBC RBC Hgb Hct MCV MCH RDW Plt Count Lymph % (Auto) [place] % (Auto) Eos % (Auto) Seg Neutrophils % Seg Neuts % (Manual) Lymphocytes % (Manual) Seg Neutrophils # Seg Neutrophils # Man Lymphocytes # (Manual) POC ABG pH 7.485 H ABG pH POC ABG pCO2 25.4 L POC ABG pO2 73 L ABG pO2 ABG HCO3 ABG Base Excess ABG Hemoglobin Oxyhemoglobin Sodium Potassium Chloride Carbon Dioxide BUN Glucose POC Glucose 116 H 171 H Calcium AST Alkaline Phosphatase Albumin Urine WBC (Auto) 01/13/17 01/14/17 01/14/17 17:31 00:02 04:50 WBC RBC 3.32 L Hgb 8.5 L Hct 26.1 L MCV 79 L MCH 26 L RDW 18.2 H Plt Count Lymph % (Auto) [place] % (Auto) 9.0 H Eos % (Auto) Seg Neutrophils % Seg Neuts % (Manual) Lymphocytes % (Manual) Seg Neutrophils # Seg Neutrophils # Man Lymphocytes # (Manual) POC ABG pH ABG pH POC ABG pCO2 POC ABG pO2 ABG pO2 ABG HCO3 ABG Base Excess ABG Hemoglobin Oxyhemoglobin Sodium Potassium Chloride Carbon Dioxide BUN Glucose POC Glucose 203 H 157 H Calcium AST Alkaline Phosphatase Albumin Urine WBC (Auto) 01/14/17 01/14/17 01/14/17 04:50 05:10 11:27 WBC RBC Hgb Hct MCV MCH RDW Plt Count Lymph % (Auto) [place] % (Auto) Eos % (Auto) Seg Neutrophils % Seg Neuts % (Manual) Lymphocytes % (Manual) Seg Neutrophils # Seg Neutrophils # Man Lymphocytes # (Manual) POC ABG pH ABG pH POC ABG pCO2 POC ABG pO2 ABG pO2 ABG HCO3 ABG Base Excess ABG Hemoglobin Oxyhemoglobin Sodium Potassium Chloride 112.5 H Carbon Dioxide BUN Glucose 149 H POC Glucose 176 H 147 H Calcium 8.1 L AST Alkaline Phosphatase Albumin Urine WBC (Auto) 01/14/17 01/14/17 01/15/17 14:07 16:52 00:04 WBC RBC Hgb Hct MCV MCH RDW Plt Count Lymph % (Auto) [place] % (Auto) Eos % (Auto) Seg Neutrophils % Seg Neuts % (Manual) Lymphocytes % (Manual) Seg Neutrophils # Seg Neutrophils # Man Lymphocytes # (Manual) POC ABG pH ABG pH POC ABG pCO2 POC ABG pO2 ABG pO2 ABG HCO3 ABG Base Excess ABG Hemoglobin Oxyhemoglobin Sodium Potassium Chloride Carbon Dioxide BUN Glucose POC Glucose 131 H 193 H Calcium AST Alkaline Phosphatase Albumin Urine WBC (Auto) 53.0 H 01/15/17 01/15/17 01/15/17 05:26 11:49 17:47 WBC RBC Hgb Hct MCV MCH RDW Plt Count Lymph % (Auto) [place] % (Auto) Eos % (Auto) Seg Neutrophils % Seg Neuts % (Manual) Lymphocytes % (Manual) Seg Neutrophils # Seg Neutrophils # Man Lymphocytes # (Manual) POC ABG pH ABG pH POC ABG pCO2 POC ABG pO2 ABG pO2 ABG HCO3 ABG Base Excess ABG Hemoglobin Oxyhemoglobin Sodium Potassium Chloride Carbon Dioxide BUN Glucose POC Glucose 215 H 121 H 211 H Calcium AST Alkaline Phosphatase Albumin Urine WBC (Auto) 01/15/17 01/16/17 01/16/17 21:33 04:30 05:28 WBC RBC Hgb Hct MCV MCH RDW Plt Count Lymph % (Auto) [place] % (Auto) Eos % (Auto) Seg Neutrophils % Seg Neuts % (Manual) Lymphocytes % (Manual) Seg Neutrophils # Seg Neutrophils # Man Lymphocytes # (Manual) POC ABG pH ABG pH 7.457 H POC ABG pCO2 POC ABG pO2 ABG pO2 55.1 L ABG HCO3 19.4 L ABG Base Excess -4.0 L ABG Hemoglobin 6.8 L Oxyhemoglobin 94.9 L Sodium Potassium Chloride Carbon Dioxide BUN Glucose POC Glucose 275 H 271 H Calcium AST Alkaline Phosphatase Albumin Urine WBC (Auto) 01/16/17 01/16/17 01/17/17 13:45 21:39 04:10 WBC 4.4 L RBC 2.98 L Hgb 7.7 L Hct 23.3 L MCV 78 L MCH 26 L RDW 18.1 H Plt Count Lymph % (Auto) [place] % (Auto) Eos % (Auto) Seg Neutrophils % Seg Neuts % (Manual) Lymphocytes % (Manual) Seg Neutrophils # Seg Neutrophils # Man Lymphocytes # (Manual) POC ABG pH ABG pH POC ABG pCO2 POC ABG pO2 ABG pO2 ABG HCO3 ABG Base Excess ABG Hemoglobin Oxyhemoglobin Sodium Potassium Chloride Carbon Dioxide BUN Glucose POC Glucose 236 H 258 H Calcium AST Alkaline Phosphatase Albumin Urine WBC (Auto) 01/17/17 01/17/17 01/17/17 04:10 04:35 12:23 WBC RBC Hgb Hct MCV MCH RDW Plt Count Lymph % (Auto) [place] % (Auto) Eos % (Auto) Seg Neutrophils % Seg Neuts % (Manual) Lymphocytes % (Manual) Seg Neutrophils # Seg Neutrophils # Man Lymphocytes # (Manual) POC ABG pH ABG pH POC ABG pCO2 POC ABG pO2 ABG pO2 160.3 H ABG HCO3 ABG Base Excess -2.3 L ABG Hemoglobin 7.9 L Oxyhemoglobin Sodium Potassium 3.3 L Chloride 108.7 H Carbon Dioxide 20 L BUN 8 L Glucose 202 H POC Glucose 321 H Calcium 7.6 L AST Alkaline Phosphatase Albumin Urine WBC (Auto) 01/17/17 01/18/17 01/18/17 16:01 05:07 12:09 WBC RBC Hgb Hct MCV MCH RDW Plt Count Lymph % (Auto) [place] % (Auto) Eos % (Auto) Seg Neutrophils % Seg Neuts % (Manual) Lymphocytes % (Manual) Seg Neutrophils # Seg Neutrophils # Man Lymphocytes # (Manual) POC ABG pH ABG pH POC ABG pCO2 POC ABG pO2 ABG pO2 ABG HCO3 ABG Base Excess ABG Hemoglobin Oxyhemoglobin Sodium Potassium Chloride Carbon Dioxide BUN Glucose POC Glucose 239 H 155 H 203 H Calcium AST Alkaline Phosphatase Albumin Urine WBC (Auto) 01/18/17 01/18/17 01/19/17 17:54 23:43 04:28 WBC RBC Hgb Hct MCV MCH RDW Plt Count Lymph % (Auto) [place] % (Auto) Eos % (Auto) Seg Neutrophils % Seg Neuts % (Manual) Lymphocytes % (Manual) Seg Neutrophils # Seg Neutrophils # Man Lymphocytes # (Manual) POC ABG pH ABG pH POC ABG pCO2 POC ABG pO2 ABG pO2 ABG HCO3 ABG Base Excess ABG Hemoglobin Oxyhemoglobin Sodium Potassium Chloride Carbon Dioxide BUN Glucose POC Glucose 132 H 125 H 182 H Calcium AST Alkaline Phosphatase Albumin Urine WBC (Auto) 01/19/17 01/19/17 01/20/17 12:11 17:23 00:12 WBC RBC Hgb Hct MCV MCH RDW Plt Count Lymph % (Auto) [place] % (Auto) Eos % (Auto) Seg Neutrophils % Seg Neuts % (Manual) Lymphocytes % (Manual) Seg Neutrophils # Seg Neutrophils # Man Lymphocytes # (Manual) POC ABG pH ABG pH POC ABG pCO2 POC ABG pO2 ABG pO2 ABG HCO3 ABG Base Excess ABG Hemoglobin Oxyhemoglobin Sodium Potassium Chloride Carbon Dioxide BUN Glucose POC Glucose 153 H 66 L 139 H Calcium AST Alkaline Phosphatase Albumin Urine WBC (Auto) 01/20/17 01/20/17 01/20/17 05:44 11:48 17:42 WBC RBC Hgb Hct MCV MCH RDW Plt Count Lymph % (Auto) [place] % (Auto) Eos % (Auto) Seg Neutrophils % Seg Neuts % (Manual) Lymphocytes % (Manual) Seg Neutrophils # Seg Neutrophils # Man Lymphocytes # (Manual) POC ABG pH ABG pH POC ABG pCO2 POC ABG pO2 ABG pO2 ABG HCO3 ABG Base Excess ABG Hemoglobin Oxyhemoglobin Sodium Potassium Chloride Carbon Dioxide BUN Glucose POC Glucose 176 H 218 H 132 H Calcium AST Alkaline Phosphatase Albumin Urine WBC (Auto) 01/20/17 01/21/17 01/21/17 23:43 05:34 11:17 WBC RBC Hgb Hct MCV MCH RDW Plt Count Lymph % (Auto) [place] % (Auto) Eos % (Auto) Seg Neutrophils % Seg Neuts % (Manual) Lymphocytes % (Manual) Seg Neutrophils # Seg Neutrophils # Man Lymphocytes # (Manual) POC ABG pH ABG pH POC ABG pCO2 POC ABG pO2 ABG pO2 ABG HCO3 ABG Base Excess ABG Hemoglobin Oxyhemoglobin Sodium Potassium Chloride Carbon Dioxide BUN Glucose POC Glucose 178 H 106 H 213 H Calcium AST Alkaline Phosphatase Albumin Urine WBC (Auto) 01/21/17 01/22/17 01/22/17 23:37 04:00 04:00 WBC RBC 3.26 L Hgb 8.3 L Hct 25.5 L MCV 78 L MCH 25 L RDW 17.9 H Plt Count Lymph % (Auto) [place] % (Auto) 7.9 H Eos % (Auto) 6.2 H Seg Neutrophils % Seg Neuts % (Manual) Lymphocytes % (Manual) Seg Neutrophils # Seg Neutrophils # Man Lymphocytes # (Manual) POC ABG pH ABG pH POC ABG pCO2 POC ABG pO2 ABG pO2 ABG HCO3 ABG Base Excess ABG Hemoglobin Oxyhemoglobin Sodium Potassium Chloride 95.5 L Carbon Dioxide 31 H D BUN Glucose 134 H POC Glucose 140 H Calcium AST 44 H Alkaline Phosphatase 379 H Albumin 2.7 L Urine WBC (Auto) 01/22/17 01/22/17 01/22/17 04:58 12:12 18:12 WBC RBC Hgb Hct MCV MCH RDW Plt Count Lymph % (Auto) [place] % (Auto) Eos % (Auto) Seg Neutrophils % Seg Neuts % (Manual) Lymphocytes % (Manual) Seg Neutrophils # Seg Neutrophils # Man Lymphocytes # (Manual) POC ABG pH ABG pH POC ABG pCO2 POC ABG pO2 ABG pO2 ABG HCO3 ABG Base Excess ABG Hemoglobin Oxyhemoglobin Sodium Potassium Chloride Carbon Dioxide BUN Glucose POC Glucose 146 H 255 H 182 H Calcium AST Alkaline Phosphatase Albumin Urine WBC (Auto) 01/22/17 01/23/17 01/23/17 23:39 04:43 12:12 WBC RBC Hgb Hct MCV MCH RDW Plt Count Lymph % (Auto) [place] % (Auto) Eos % (Auto) Seg Neutrophils % Seg Neuts % (Manual) Lymphocytes % (Manual) Seg Neutrophils # Seg Neutrophils # Man Lymphocytes # (Manual) POC ABG pH ABG pH POC ABG pCO2 POC ABG pO2 ABG pO2 ABG HCO3 ABG Base Excess ABG Hemoglobin Oxyhemoglobin Sodium Potassium Chloride Carbon Dioxide BUN Glucose POC Glucose 134 H 218 H 128 H Calcium AST Alkaline Phosphatase Albumin Urine WBC (Auto) 01/23/17 01/24/17 01/24/17 17:36 00:08 05:16 WBC RBC Hgb Hct MCV MCH RDW Plt Count Lymph % (Auto) [place] % (Auto) Eos % (Auto) Seg Neutrophils % Seg Neuts % (Manual) Lymphocytes % (Manual) Seg Neutrophils # Seg Neutrophils # Man Lymphocytes # (Manual) POC ABG pH ABG pH POC ABG pCO2 POC ABG pO2 ABG pO2 ABG HCO3 ABG Base Excess ABG Hemoglobin Oxyhemoglobin Sodium Potassium Chloride Carbon Dioxide BUN Glucose POC Glucose 156 H 129 H 169 H Calcium AST Alkaline Phosphatase Albumin Urine WBC (Auto) 01/24/17 01/24/17 01/24/17 11:40 17:43 23:23 WBC RBC Hgb Hct MCV MCH RDW Plt Count Lymph % (Auto) [place] % (Auto) Eos % (Auto) Seg Neutrophils % Seg Neuts % (Manual) Lymphocytes % (Manual) Seg Neutrophils # Seg Neutrophils # Man Lymphocytes # (Manual) POC ABG pH ABG pH POC ABG pCO2 POC ABG pO2 ABG pO2 ABG HCO3 ABG Base Excess ABG Hemoglobin Oxyhemoglobin Sodium Potassium Chloride Carbon Dioxide BUN Glucose POC Glucose 187 H 215 H 222 H Calcium AST Alkaline Phosphatase Albumin Urine WBC (Auto) 01/25/17 01/25/17 01/25/17 04:56 11:52 17:37 WBC RBC Hgb Hct MCV MCH RDW Plt Count Lymph % (Auto) [place] % (Auto) Eos % (Auto) Seg Neutrophils % Seg Neuts % (Manual) Lymphocytes % (Manual) Seg Neutrophils # Seg Neutrophils # Man Lymphocytes # (Manual) POC ABG pH ABG pH POC ABG pCO2 POC ABG pO2 ABG pO2 ABG HCO3 ABG Base Excess ABG Hemoglobin Oxyhemoglobin Sodium Potassium Chloride Carbon Dioxide BUN Glucose POC Glucose 210 H 284 H 218 H Calcium AST Alkaline Phosphatase Albumin Urine WBC (Auto) 01/26/17 01/26/17 01/26/17 00:02 05:33 12:17 WBC RBC Hgb Hct MCV MCH RDW Plt Count Lymph % (Auto) [place] % (Auto) Eos % (Auto) Seg Neutrophils % Seg Neuts % (Manual) Lymphocytes % (Manual) Seg Neutrophils # Seg Neutrophils # Man Lymphocytes # (Manual) POC ABG pH ABG pH POC ABG pCO2 POC ABG pO2 ABG pO2 ABG HCO3 ABG Base Excess ABG Hemoglobin Oxyhemoglobin Sodium Potassium Chloride Carbon Dioxide BUN Glucose POC Glucose 192 H 199 H 227 H Calcium AST Alkaline Phosphatase Albumin Urine WBC (Auto) 01/26/17 01/26/17 01/27/17 17:50 23:57 05:31 WBC RBC Hgb Hct MCV MCH RDW Plt Count Lymph % (Auto) [place] % (Auto) Eos % (Auto) Seg Neutrophils % Seg Neuts % (Manual) Lymphocytes % (Manual) Seg Neutrophils # Seg Neutrophils # Man Lymphocytes # (Manual) POC ABG pH ABG pH POC ABG pCO2 POC ABG pO2 ABG pO2 ABG HCO3 ABG Base Excess ABG Hemoglobin Oxyhemoglobin Sodium Potassium Chloride Carbon Dioxide BUN Glucose POC Glucose 229 H 186 H 285 H Calcium AST Alkaline Phosphatase Albumin Urine WBC (Auto) 01/27/17 01/27/17 Unknown Unknown WBC 12.1 H RBC 3.28 L Hgb 8.5 L Hct 25.5 L MCV 78 L MCH 26 L RDW 16.8 H Plt Count 601 H Lymph % (Auto) [place] % (Auto) Eos % (Auto) Seg Neutrophils % Seg Neuts % (Manual) Lymphocytes % (Manual) Seg Neutrophils # Seg Neutrophils # Man Lymphocytes # (Manual) POC ABG pH ABG pH POC ABG pCO2 POC ABG pO2 ABG pO2 ABG HCO3 ABG Base Excess ABG Hemoglobin Oxyhemoglobin Sodium 128 L Potassium 5.4 H Chloride 87.5 L Carbon Dioxide BUN 44 H Glucose 250 H POC Glucose Calcium AST Alkaline Phosphatase Albumin Urine WBC (Auto)
[2017-01-27] MEDS: NACL 0.9% 1000 ML 1,000 ML IV SCH (08:13)
--- NOTE | 2017-01-27 09:49 | Progress Note ---
Assessment and Plan Assessment and plan: Hypoglycemic brain injury. patient was found hypoglycemic. He is now in vegetative state. Neurology following. Persistent vegetative state. Metabolic encephalopathy due to hypoglycemia Hypoglycemia/hypothermia, resolved Acute respiratory failure. He has been on mechanical ventilator greater than 96 hours Sepsis ruled out, UTI ruled out Hyponatremia, This is now resolved. Most recent Sodium 137 Hypothyroidism Diabetes mellitus type 2. Check fingerstick glucose q 6h. Blood glucose elevated. Will Increase levemir dose to 8 Units subcut Qam. Hypertension. BP stable low grade Fever. May repeat cultures if persistent Patient is DNR- awaiting hospice placement, needs guardianship from the state to give consent, as has no family to give consent History Interval history: Patient found unresponsive, diagnosed with hypoglycemia with brain injury, Still unresponsive, fever with Tmax 101.9 Hospitalist Physical - Physical exam Narrative exam: Gen Appearance: Not in acute distress, malnourished HEENT: normocephalic, atraumatic Neck: supple, no JVD Lungs: clear to auscultation bilaterally, no crackles or wheezes Heart: S1 and S2 regular, no murmurs, rubs or gallop Abdomen: Soft , non tender, non distended, normal bowel sounds Extremity: No edema, clubbing or cyanosis Neuro : Intubated, Unresponsive, vegetative state - Constitutional Vitals: Temp Pulse Resp BP Pulse Ox 99.8 F H 82 18 132/77 100 01/27/17 08:00 01/27/17 09:00 01/27/17 09:00 01/27/17 09:00 01/27/17 09:00 Results - Labs CBC & Chem 7: 01/27/17 Unknown 01/27/17 Unknown Labs: Laboratory Last Values WBC 12.1 K/mm3 (4.5-11.0) H 01/27/17 Unknown RBC 3.28 M/mm3 (3.65-5.03) L 01/27/17 Unknown Hgb 8.5 gm/dl (11.8-15.2) L 01/27/17 Unknown Hct 25.5 % (35.5-45.6) L 01/27/17 Unknown MCV 78 fl (84-94) L 01/27/17 Unknown MCH 26 pg (28-32) L 01/27/17 Unknown MCHC 33 % (32-34) 01/27/17 Unknown RDW 16.8 % (13.2-15.2) H 01/27/17 Unknown Plt Count 601 K/mm3 (140-440) H 01/27/17 Unknown Lymph % (Auto) 34.4 % (13.4-35.0) 01/22/17 04:00 [place] % (Auto) 7.9 % (0.0-7.3) H 01/22/17 04:00 Eos % (Auto) 6.2 % (0.0-4.3) H 01/22/17 04:00 Baso % (Auto) 1.1 % (0.0-1.8) 01/22/17 04:00 Lymph # 1.8 K/mm3 (1.2-5.4) 01/22/17 04:00 [place] # 0.4 K/mm3 (0.0-0.8) 01/22/17 04:00 Eos # 0.3 K/mm3 (0.0-0.4) 01/22/17 04:00 Baso # 0.1 K/mm3 (0.0-0.1) 01/22/17 04:00 Add Manual Diff Complete 01/10/17 04:30 Total Counted 100 01/10/17 04:30 Seg Neutrophils % 50.4 % (40.0-70.0) 01/22/17 04:00 Seg Neuts % (Manual) 88.0 % (40.0-70.0) H 01/10/17 04:30 Band Neutrophils % 7.0 % 01/10/17 04:30 Lymphocytes % (Manual) 4.0 % (13.4-35.0) L 01/10/17 04:30 Reactive Lymphs % (Man) 0 % 01/10/17 04:30 Monocytes % (Manual) 1.0 % (0.0-7.3) 01/10/17 04:30 Eosinophils % (Manual) 0 % (0.0-4.3) 01/10/17 04:30 Basophils % (Manual) 0 % (0.0-1.8) 01/10/17 04:30 Metamyelocytes % 0 % 01/10/17 04:30 Myelocytes % 0 % 01/10/17 04:30 Promyelocytes % 0 % 01/10/17 04:30 Blast Cells % 0 % 01/10/17 04:30 Nucleated RBC % Not Reportable 01/10/17 04:30 Seg Neutrophils # 2.7 K/mm3 (1.8-7.7) 01/22/17 04:00 Seg Neutrophils # Man 21.2 K/mm3 (1.8-7.7) H 01/10/17 04:30 Band Neutrophils # 1.7 K/mm3 01/10/17 04:30 Lymphocytes # (Manual) 1.0 K/mm3 (1.2-5.4) L 01/10/17 04:30 Abs React Lymphs (Man) 0.0 K/mm3 01/10/17 04:30 Monocytes # (Manual) 0.2 K/mm3 (0.0-0.8) 01/10/17 04:30 Eosinophils # (Manual) 0.0 K/mm3 (0.0-0.4) 01/10/17 04:30 Basophils # (Manual) 0.0 K/mm3 (0.0-0.1) 01/10/17 04:30 Metamyelocytes # 0.0 K/mm3 01/10/17 04:30 Myelocytes # 0.0 K/mm3 01/10/17 04:30 Promyelocytes # 0.0 K/mm3 01/10/17 04:30 Blast Cells # 0.0 K/mm3 01/10/17 04:30 WBC Morphology Not Reportable 01/10/17 04:30 Hypersegmented Neuts Not Reportable 01/10/17 04:30 Hyposegmented Neuts Not Reportable 01/10/17 04:30 Hypogranular Neuts Not Reportable 01/10/17 04:30 Smudge Cells Not Reportable 01/10/17 04:30 Toxic Granulation Not Reportable 01/10/17 04:30 Toxic Vacuolation Not Reportable 01/10/17 04:30 Dohle Bodies Not Reportable 01/10/17 04:30 Pelger-Huet Anomaly Not Reportable 01/10/17 04:30 [place] Rods Not Reportable 01/10/17 04:30 Platelet Estimate Consistent w auto 01/10/17 04:30 Clumped Platelets Not Reportable 01/10/17 04:30 Plt Clumps, EDTA Not Reportable 01/10/17 04:30 Large Platelets Not Reportable 01/10/17 04:30 Giant Platelets Not Reportable 01/10/17 04:30 Platelet Satelliting Not Reportable 01/10/17 04:30 Plt Morphology Comment Not Reportable 01/10/17 04:30 RBC Morphology Not Reportable 01/10/17 04:30 Dimorphic RBCs Not Reportable 01/10/17 04:30 Polychromasia Not Reportable 01/10/17 04:30 Hypochromasia 1+ 01/10/17 04:30 Poikilocytosis Not Reportable 01/10/17 04:30 Anisocytosis Not Reportable 01/10/17 04:30 Microcytosis Not Reportable 01/10/17 04:30 Macrocytosis Not Reportable 01/10/17 04:30 Spherocytes Not Reportable 01/10/17 04:30 Pappenheimer Bodies Not Reportable 01/10/17 04:30 Sickle Cells Not Reportable 01/10/17 04:30 Target Cells Not Reportable 01/10/17 04:30 Tear Drop Cells Not Reportable 01/10/17 04:30 Ovalocytes Not Reportable 01/10/17 04:30 Helmet Cells Not Reportable 01/10/17 04:30 [place] Bodies Not Reportable 01/10/17 04:30 [place] Rings Not Reportable 01/10/17 04:30 [place] Cells Not Reportable 01/10/17 04:30 Bite Cells Not Reportable 01/10/17 04:30 Crenated Cell Not Reportable 01/10/17 04:30 Elliptocytes Not Reportable 01/10/17 04:30 Acanthocytes (Spur) Not Reportable 01/10/17 04:30 Rouleaux Not Reportable 01/10/17 04:30 Hemoglobin C Crystals Not Reportable 01/10/17 04:30 Schistocytes Not Reportable 01/10/17 04:30 Malaria parasites Not Reportable 01/10/17 04:30 [place] Bodies Not Reportable 01/10/17 04:30 Hem Pathologist Commnt No 01/10/17 04:30 PT 14.1 Sec. (12.2-14.9) 01/17/17 04:10 INR 1.04 (0.87-1.13) 01/17/17 04:10 APTT 36.6 Sec. (24.2-36.6) 01/17/17 04:10 POC ABG pH 7.485 (7.35-7.45) H 01/13/17 04:26 ABG pH 7.420 pH Units (7.350-7.450) 01/17/17 04:35 POC ABG pCO2 25.4 (35-45) L 01/13/17 04:26 ABG pCO2 34.5 mm Hg 01/17/17 04:35 POC ABG pO2 73 (80-105) L 01/13/17 04:26 ABG pO2 160.3 mm Hg (80.0-90.0) H 01/17/17 04:35 POC ABG HCO3 19.1 01/13/17 04:26 ABG HCO3 21.9 mmol/L (20.0-26.0) 01/17/17 04:35 POC ABG Total CO2 20 01/13/17 04:26 POC ABG O2 Sat 96 01/13/17 04:26 ABG O2 Saturation 99.0 % (95.0-99.0) 01/17/17 04:35 ABG O2 Content 11.1 (0.0-44) 01/17/17 04:35 POC ABG Base Excess -4 01/13/17 04:26 ABG Base Excess -2.3 mmol/L (-2.0-3.0) L 01/17/17 04:35 ABG Hemoglobin 7.9 gm/dl (14.0-18.0) L 01/17/17 04:35 ABG Carboxyhemoglobin 1.5 % (0.0-5.0) 01/17/17 04:35 ABG Methemoglobin 0.5 % (0.0-1.5) 01/17/17 04:35 VBG pH 7.284 (7.320-7.420) L 01/09/17 10:16 Oxyhemoglobin 97.1 % (95.0-99.0) 01/17/17 04:35 FiO2 30 % 01/17/17 04:35 Sodium 128 mmol/L (137-145) L 01/27/17 Unknown Potassium 5.4 mmol/L (3.6-5.0) H 01/27/17 Unknown Chloride 87.5 mmol/L (98-107) L 01/27/17 Unknown Carbon Dioxide 28 mmol/L (22-30) 01/27/17 Unknown Anion Gap 18 mmol/L 01/27/17 Unknown BUN 44 mg/dL (9-20) H 01/27/17 Unknown Creatinine 1.1 mg/dL (0.8-1.5) 01/27/17 Unknown Estimated GFR > 60 ml/min 01/27/17 Unknown BUN/Creatinine Ratio 40 % 01/27/17 Unknown Glucose 250 mg/dL (75-100) H 01/27/17 Unknown POC Glucose 285 (70-105) H 01/27/17 05:31 Lactic Acid 1.00 mmol/L (0.7-2.0) 01/09/17 10:16 Calcium 9.0 mg/dL (8.4-10.2) 01/27/17 Unknown Phosphorus 3.60 mg/dL (2.5-4.5) 01/22/17 04:00 Magnesium 2.10 mg/dL (1.7-2.3) 01/22/17 04:00 Total Bilirubin 0.30 mg/dL (0.1-1.2) 01/22/17 04:00 AST 44 units/L (5-40) H 01/22/17 04:00 ALT 23 units/L (7-56) 01/22/17 04:00 Alkaline Phosphatase 379 units/L (35-129) H 01/22/17 04:00 Ammonia 35.0 umol/L (25-60) 01/09/17 10:16 Total Creatine Kinase 135 units/L (55-170) 01/09/17 10:16 CK-MB (CK-2) 7.1 ng/mL (0.0-4.0) H 01/09/17 10:16 CK-MB (CK-2) Rel Index 5.2 (0-4) H 01/09/17 10:16 Troponin T < 0.010 ng/mL (0.00-0.029) 01/09/17 10:16 NT-Pro-B Natriuret Pep 602.9 pg/mL (0-900) 01/09/17 10:16 Total Protein 7.9 g/dL (6.3-8.2) 01/22/17 04:00 Albumin 2.7 g/dL (3.9-5) L 01/22/17 04:00 Albumin/Globulin Ratio 0.5 % 01/22/17 04:00 TSH 52.800 mlU/mL (0.270-4.200) H 01/09/17 10:16 Free T4 0.78 ng/dL (0.76-1.46) 01/09/17 10:16 Total Cortisol 54.8 mcg/dL () 01/09/17 16:19 Urine Color Yellow (Yellow) 01/14/17 14:07 Urine Turbidity Clear (Clear) 01/14/17 14:07 Urine pH 5.0 (5.0-7.0) 01/14/17 14:07 Ur Specific [place] 1.011 (1.003-1.030) 01/14/17 14:07 Urine Protein <15 mg/dl mg/dL (Negative) 01/14/17 14:07 Urine Glucose (UA) Neg mg/dL (Negative) 01/14/17 14:07 Urine Ketones Neg mg/dL (Negative) 01/14/17 14:07 Urine Blood Sm (Negative) 01/14/17 14:07 Urine Nitrite Neg (Negative) 01/14/17 14:07 Urine Bilirubin Neg (Negative) 01/14/17 14:07 Urine Urobilinogen < 2.0 mg/dL (<2.0) 01/14/17 14:07 Ur Leukocyte Esterase Lg (Negative) 01/14/17 14:07 Urine WBC (Auto) 53.0 /HPF (0.0-6.0) H 01/14/17 14:07 Urine RBC (Auto) 12.0 /HPF (0.0-6.0) 01/14/17 14:07 Urine Bacteria (Auto) 1+ /HPF (Negative) 01/09/17 10:23 Urine Mucus Few /HPF 01/14/17 14:07 Urine Yeast (Budding) 3+ /HPF 01/14/17 14:07 Salicylates < 0.3 mg/dL (2.8-20.0) L 01/09/17 10:16 Urine Opiates Screen Presumptive negative 01/09/17 10:23 Urine Methadone Screen Presumptive negative 01/09/17 10:23 Acetaminophen < 15.0 ug/mL (10.0-30.0) 01/09/17 10:16 Ur Barbiturates Screen Presumptive negative 01/09/17 10:23 Ur Phencyclidine Scrn Presumptive negative 01/09/17 10:23 Ur Amphetamines Screen Presumptive negative 01/09/17 10:23 U Benzodiazepines Scrn Presumptive negative 01/09/17 10:23 Urine Cocaine Screen Presumptive negative 01/09/17 10:23 U Marijuana (THC) Screen Presumptive negative 01/09/17 10:23 Drugs of Abuse Note Disclamer 01/09/17 10:23 Plasma/Serum Alcohol < 0.01 gm% (0-0.07) 01/09/17 10:16
[2017-01-27] MEDS: NORMODYNE PO SCH ×2 (10:46→22:04)
[2017-01-27] MEDS: HEPARIN SUB-Q SCH ×2 (10:47→22:02)
[2017-01-27] MEDS: PEPCID PO SCH ×2 (10:47→22:05)
[2017-01-27] MEDS: LEVEMIR (NF) SUB-Q SCH (10:48)
[2017-01-27] MEDS: KIONEX PO SCH ×2 (10:48→15:13)
[2017-01-28] MEDS: NOVOLOG SUB-Q SCH ×4 (00:06→17:47)
[2017-01-28] MEDS: TYLENOL FEEDTUBE PRN (03:53)
[2017-01-28 04:16] LABS: Hematocrit 24.1 % (35.5-45.6); Hemoglobin 8.2 gm/dl (11.8-15.2); Mean Corpuscular HGB Conc 34 % (32-34); Mean Corpuscular Hemoglobin 26 pg (28-32); Mean Corpuscular Volume 77 fl (84-94); Platelet Count 567 K/mm3 (140-440); Red Blood Count 3.14 M/mm3 (3.65-5.03); Red Cell Distribution Width 16.9 % (13.2-15.2)
[2017-01-28 04:18] LABS: BUN/Creatinine Ratio 47; Blood Urea Nitrogen 42 mg/dL (9-20); Calcium 8.7 mg/dL (8.4-10.2); Hemolysis Index 24
[2017-01-28] MEDS: NACL 0.9% 1000 ML 1,000 ML IV SCH ×3 (05:20→21:57)
[2017-01-28] MEDS: SYNTHROID PO SCH (06:01)
--- NOTE | 2017-01-28 08:58 | Progress Note ---
Assessment and Plan Acute respiratory failure, hypoxia. Unable to wean patient due to baseline neurological status changes. Fever. Last CXR negative, WBC normal. Hypoglycemia/hypothermia - Metabolic encephalopathy. Severe. Poor EEG response/tracing, per neurology. Likely secondary to severe neurological damage Hypothyroidism; doubt myxedema coma with normal free T4 UTI/SIRS Recommendations Waiting for final statement regarding long-term hospice care. If warranted as stated and the patient cannot be mobile so the ICU, then I will recommend tracheotomy in order to complete ventilator weaning and hopefully it' ll be transferred to the floor We'll continue to monitor fever although no additional source noted. Had recommended to remove IJ line Guarded to poor prognosis; complex patient Critical care time with a 31 minutes of [id number] evaluation and coordination of care Subjective Date of service: 01/28/17 Principal diagnosis: Acute respiratory failure,encephalopathy Interval history: Patient is nonresponsive Objective Vital Signs - 12hr 01/27/17 01/27/17 01/27/17 21:00 22:00 22:04 Temperature Pulse Rate 82 78 77 Respiratory 14 Rate Blood Pressure 116/64 122/71 122/71 O2 Sat by Pulse 99 100 Oximetry 01/27/17 01/27/17 01/27/17 23:00 23:06 23:33 Temperature 99.9 F H Pulse Rate 79 80 Respiratory 15 15 Rate Blood Pressure 120/70 120/70 O2 Sat by Pulse 100 100 Oximetry 01/28/17 01/28/17 01/28/17 00:00 01:00 01:11 Temperature Pulse Rate 86 94 H 94 H Respiratory 20 17 Rate Blood Pressure 132/74 133/78 133/78 O2 Sat by Pulse 99 100 99 Oximetry 01/28/17 01/28/17 01/28/17 02:00 03:00 03:37 Temperature 103.1 F H Pulse Rate 85 84 Respiratory 16 16 Rate Blood Pressure 112/62 115/65 O2 Sat by Pulse 97 98 Oximetry 01/28/17 01/28/17 01/28/17 04:00 05:00 05:14 Temperature Pulse Rate 84 87 82 Respiratory 19 27 H Rate Blood Pressure 118/68 122/62 122/62 O2 Sat by Pulse 98 100 99 Oximetry 01/28/17 01/28/17 01/28/17 06:00 07:00 07:35 Temperature Pulse Rate 81 79 77 Respiratory 13 17 Rate Blood Pressure 114/63 110/64 110/64 O2 Sat by Pulse 100 100 Oximetry 01/28/17 01/28/17 07:46 08:00 Temperature Pulse Rate 76 77 Respiratory 24 23 Rate Blood Pressure 110/64 114/67 O2 Sat by Pulse 100 100 Oximetry Constitutional: no acute distress, comatose, other (intubated, on vent) Eyes: non-icteric ENT: oropharynx moist Neck: supple, no JVD Effort: normal Ascultation: Bilateral: clear, diminished breath sounds Cardiovascular: regular rate and rhythm Gastrointestinal: normoactive bowel sounds, soft, non-tender, non-distended Integumentary: normal Extremities: no cyanosis, no edema, pink and warm Neurologic: non-focal exam, pupils equal and round, other (no response to pain) Psychiatric: other (unable to obtain) CBC and BMP: 02/01/17 03:38 02/01/17 03:38 ABG, PT/INR, D-dimer: ABG POC ABG pH 7.485 (7.35-7.45) H 01/13/17 04:26 ABG pH 7.420 pH Units (7.350-7.450) 01/17/17 04:35 POC ABG pCO2 25.4 (35-45) L 01/13/17 04:26 ABG pCO2 34.5 mm Hg 01/17/17 04:35 POC ABG pO2 73 (80-105) L 01/13/17 04:26 ABG pO2 160.3 mm Hg (80.0-90.0) H 01/17/17 04:35 POC ABG HCO3 19.1 01/13/17 04:26 POC ABG Total CO2 20 01/13/17 04:26 POC ABG O2 Sat 96 01/13/17 04:26 ABG O2 Saturation 99.0 % (95.0-99.0) 01/17/17 04:35 PT/INR, D-dimer PT 14.1 Sec. (12.2-14.9) 01/17/17 04:10 INR 1.04 (0.87-1.13) 01/17/17 04:10 Abnormal lab findings: Abnormal Labs 01/09/17 01/09/17 01/09/17 12:49 13:13 14:21 WBC RBC Hgb Hct MCV MCH RDW Plt Count Lymph % (Auto) [place] % (Auto) Eos % (Auto) Seg Neutrophils % Seg Neuts % (Manual) Lymphocytes % (Manual) Seg Neutrophils # Seg Neutrophils # Man Lymphocytes # (Manual) POC ABG pH ABG pH POC ABG pCO2 POC ABG pO2 ABG pO2 ABG HCO3 ABG Base Excess ABG Hemoglobin Oxyhemoglobin Sodium Potassium Chloride Carbon Dioxide BUN Glucose POC Glucose < 40 L 128 H 65 L Calcium AST Alkaline Phosphatase Albumin Urine WBC (Auto) 01/09/17 01/09/17 01/09/17 15:09 16:28 17:14 WBC RBC Hgb Hct MCV MCH RDW Plt Count Lymph % (Auto) [place] % (Auto) Eos % (Auto) Seg Neutrophils % Seg Neuts % (Manual) Lymphocytes % (Manual) Seg Neutrophils # Seg Neutrophils # Man Lymphocytes # (Manual) POC ABG pH ABG pH POC ABG pCO2 POC ABG pO2 ABG pO2 ABG HCO3 ABG Base Excess ABG Hemoglobin Oxyhemoglobin Sodium Potassium Chloride Carbon Dioxide BUN Glucose POC Glucose 120 H 44 L 112 H Calcium AST Alkaline Phosphatase Albumin Urine WBC (Auto) 01/10/17 01/10/17 01/10/17 04:30 04:30 05:41 WBC 24.1 H RBC 3.38 L Hgb 8.5 L Hct 26.0 L MCV 77 L MCH 25 L RDW 17.9 H Plt Count 474 H Lymph % (Auto) [place] % (Auto) Eos % (Auto) Seg Neutrophils % Seg Neuts % (Manual) 88.0 H Lymphocytes % (Manual) 4.0 L Seg Neutrophils # Seg Neutrophils # Man 21.2 H Lymphocytes # (Manual) 1.0 L POC ABG pH ABG pH POC ABG pCO2 POC ABG pO2 ABG pO2 ABG HCO3 ABG Base Excess ABG Hemoglobin Oxyhemoglobin Sodium Potassium Chloride Carbon Dioxide 17 L BUN 27 H Glucose POC Glucose 68 L Calcium 7.5 L AST Alkaline Phosphatase Albumin Urine WBC (Auto) 01/10/17 01/10/17 01/10/17 05:45 07:47 10:50 WBC RBC Hgb Hct MCV MCH RDW Plt Count Lymph % (Auto) [place] % (Auto) Eos % (Auto) Seg Neutrophils % Seg Neuts % (Manual) Lymphocytes % (Manual) Seg Neutrophils # Seg Neutrophils # Man Lymphocytes # (Manual) POC ABG pH ABG pH POC ABG pCO2 26.6 L POC ABG pO2 207 H ABG pO2 ABG HCO3 ABG Base Excess ABG Hemoglobin Oxyhemoglobin Sodium Potassium Chloride Carbon Dioxide BUN Glucose POC Glucose 148 H 165 H Calcium AST Alkaline Phosphatase Albumin Urine WBC (Auto) 01/10/17 01/10/17 01/10/17 13:41 20:20 21:39 WBC RBC Hgb Hct MCV MCH RDW Plt Count Lymph % (Auto) [place] % (Auto) Eos % (Auto) Seg Neutrophils % Seg Neuts % (Manual) Lymphocytes % (Manual) Seg Neutrophils # Seg Neutrophils # Man Lymphocytes # (Manual) POC ABG pH ABG pH POC ABG pCO2 POC ABG pO2 ABG pO2 ABG HCO3 ABG Base Excess ABG Hemoglobin Oxyhemoglobin Sodium Potassium Chloride Carbon Dioxide BUN Glucose POC Glucose 114 H 150 H 175 H Calcium AST Alkaline Phosphatase Albumin Urine WBC (Auto) 01/10/17 01/11/17 01/11/17 23:24 00:19 04:06 WBC RBC Hgb Hct MCV MCH RDW Plt Count Lymph % (Auto) [place] % (Auto) Eos % (Auto) Seg Neutrophils % Seg Neuts % (Manual) Lymphocytes % (Manual) Seg Neutrophils # Seg Neutrophils # Man Lymphocytes # (Manual) POC ABG pH 7.463 H ABG pH POC ABG pCO2 26.2 L POC ABG pO2 185 H ABG pO2 ABG HCO3 ABG Base Excess ABG Hemoglobin Oxyhemoglobin Sodium Potassium Chloride Carbon Dioxide BUN Glucose POC Glucose 155 H 163 H Calcium AST Alkaline Phosphatase Albumin Urine WBC (Auto) 01/11/17 01/11/17 01/11/17 05:20 05:20 06:21 WBC 15.2 H RBC 3.40 L Hgb 8.9 L Hct 26.3 L MCV 78 L MCH 26 L RDW 18.6 H Plt Count 462 H Lymph % (Auto) 13.2 L [place] % (Auto) Eos % (Auto) Seg Neutrophils % 80.8 H Seg Neuts % (Manual) Lymphocytes % (Manual) Seg Neutrophils # 12.3 H Seg Neutrophils # Man Lymphocytes # (Manual) POC ABG pH ABG pH POC ABG pCO2 POC ABG pO2 ABG pO2 ABG HCO3 ABG Base Excess ABG Hemoglobin Oxyhemoglobin Sodium Potassium 3.4 L Chloride 111.5 H Carbon Dioxide 17 L BUN Glucose 147 H POC Glucose 139 H Calcium 8.0 L AST Alkaline Phosphatase Albumin Urine WBC (Auto) 01/11/17 01/11/17 01/11/17 07:57 11:46 16:50 WBC RBC Hgb Hct MCV MCH RDW Plt Count Lymph % (Auto) [place] % (Auto) Eos % (Auto) Seg Neutrophils % Seg Neuts % (Manual) Lymphocytes % (Manual) Seg Neutrophils # Seg Neutrophils # Man Lymphocytes # (Manual) POC ABG pH ABG pH POC ABG pCO2 POC ABG pO2 ABG pO2 ABG HCO3 ABG Base Excess ABG Hemoglobin Oxyhemoglobin Sodium Potassium Chloride Carbon Dioxide BUN Glucose POC Glucose 188 H 199 H 235 H Calcium AST Alkaline Phosphatase Albumin Urine WBC (Auto) 01/11/17 01/12/17 01/12/17 23:15 05:02 06:56 WBC RBC Hgb Hct MCV MCH RDW Plt Count Lymph % (Auto) [place] % (Auto) Eos % (Auto) Seg Neutrophils % Seg Neuts % (Manual) Lymphocytes % (Manual) Seg Neutrophils # Seg Neutrophils # Man Lymphocytes # (Manual) POC ABG pH ABG pH POC ABG pCO2 28.0 L POC ABG pO2 178 H ABG pO2 ABG HCO3 ABG Base Excess ABG Hemoglobin Oxyhemoglobin Sodium Potassium Chloride Carbon Dioxide BUN Glucose POC Glucose 155 H 119 H Calcium AST Alkaline Phosphatase Albumin Urine WBC (Auto) 01/12/17 01/13/17 01/13/17 14:50 03:37 03:37 WBC RBC 3.61 L Hgb 9.3 L Hct 28.0 L MCV 78 L MCH 26 L RDW 18.2 H Plt Count Lymph % (Auto) [place] % (Auto) Eos % (Auto) Seg Neutrophils % Seg Neuts % (Manual) Lymphocytes % (Manual) Seg Neutrophils # Seg Neutrophils # Man Lymphocytes # (Manual) POC ABG pH ABG pH POC ABG pCO2 POC ABG pO2 ABG pO2 ABG HCO3 ABG Base Excess ABG Hemoglobin Oxyhemoglobin Sodium Potassium Chloride 112.4 H Carbon Dioxide 19 L BUN Glucose 118 H POC Glucose 164 H Calcium 8.0 L AST Alkaline Phosphatase Albumin Urine WBC (Auto) 01/13/17 01/13/17 01/13/17 04:26 06:15 11:50 WBC RBC Hgb Hct MCV MCH RDW Plt Count Lymph % (Auto) [place] % (Auto) Eos % (Auto) Seg Neutrophils % Seg Neuts % (Manual) Lymphocytes % (Manual) Seg Neutrophils # Seg Neutrophils # Man Lymphocytes # (Manual) POC ABG pH 7.485 H ABG pH POC ABG pCO2 25.4 L POC ABG pO2 73 L ABG pO2 ABG HCO3 ABG Base Excess ABG Hemoglobin Oxyhemoglobin Sodium Potassium Chloride Carbon Dioxide BUN Glucose POC Glucose 116 H 171 H Calcium AST Alkaline Phosphatase Albumin Urine WBC (Auto) 01/13/17 01/14/17 01/14/17 17:31 00:02 04:50 WBC RBC 3.32 L Hgb 8.5 L Hct 26.1 L MCV 79 L MCH 26 L RDW 18.2 H Plt Count Lymph % (Auto) [place] % (Auto) 9.0 H Eos % (Auto) Seg Neutrophils % Seg Neuts % (Manual) Lymphocytes % (Manual) Seg Neutrophils # Seg Neutrophils # Man Lymphocytes # (Manual) POC ABG pH ABG pH POC ABG pCO2 POC ABG pO2 ABG pO2 ABG HCO3 ABG Base Excess ABG Hemoglobin Oxyhemoglobin Sodium Potassium Chloride Carbon Dioxide BUN Glucose POC Glucose 203 H 157 H Calcium AST Alkaline Phosphatase Albumin Urine WBC (Auto) 01/14/17 01/14/17 01/14/17 04:50 05:10 11:27 WBC RBC Hgb Hct MCV MCH RDW Plt Count Lymph % (Auto) [place] % (Auto) Eos % (Auto) Seg Neutrophils % Seg Neuts % (Manual) Lymphocytes % (Manual) Seg Neutrophils # Seg Neutrophils # Man Lymphocytes # (Manual) POC ABG pH ABG pH POC ABG pCO2 POC ABG pO2 ABG pO2 ABG HCO3 ABG Base Excess ABG Hemoglobin Oxyhemoglobin Sodium Potassium Chloride 112.5 H Carbon Dioxide BUN Glucose 149 H POC Glucose 176 H 147 H Calcium 8.1 L AST Alkaline Phosphatase Albumin Urine WBC (Auto) 01/14/17 01/14/17 01/15/17 14:07 16:52 00:04 WBC RBC Hgb Hct MCV MCH RDW Plt Count Lymph % (Auto) [place] % (Auto) Eos % (Auto) Seg Neutrophils % Seg Neuts % (Manual) Lymphocytes % (Manual) Seg Neutrophils # Seg Neutrophils # Man Lymphocytes # (Manual) POC ABG pH ABG pH POC ABG pCO2 POC ABG pO2 ABG pO2 ABG HCO3 ABG Base Excess ABG Hemoglobin Oxyhemoglobin Sodium Potassium Chloride Carbon Dioxide BUN Glucose POC Glucose 131 H 193 H Calcium AST Alkaline Phosphatase Albumin Urine WBC (Auto) 53.0 H 01/15/17 01/15/17 01/15/17 05:26 11:49 17:47 WBC RBC Hgb Hct MCV MCH RDW Plt Count Lymph % (Auto) [place] % (Auto) Eos % (Auto) Seg Neutrophils % Seg Neuts % (Manual) Lymphocytes % (Manual) Seg Neutrophils # Seg Neutrophils # Man Lymphocytes # (Manual) POC ABG pH ABG pH POC ABG pCO2 POC ABG pO2 ABG pO2 ABG HCO3 ABG Base Excess ABG Hemoglobin Oxyhemoglobin Sodium Potassium Chloride Carbon Dioxide BUN Glucose POC Glucose 215 H 121 H 211 H Calcium AST Alkaline Phosphatase Albumin Urine WBC (Auto) 01/15/17 01/16/17 01/16/17 21:33 04:30 05:28 WBC RBC Hgb Hct MCV MCH RDW Plt Count Lymph % (Auto) [place] % (Auto) Eos % (Auto) Seg Neutrophils % Seg Neuts % (Manual) Lymphocytes % (Manual) Seg Neutrophils # Seg Neutrophils # Man Lymphocytes # (Manual) POC ABG pH ABG pH 7.457 H POC ABG pCO2 POC ABG pO2 ABG pO2 55.1 L ABG HCO3 19.4 L ABG Base Excess -4.0 L ABG Hemoglobin 6.8 L Oxyhemoglobin 94.9 L Sodium Potassium Chloride Carbon Dioxide BUN Glucose POC Glucose 275 H 271 H Calcium AST Alkaline Phosphatase Albumin Urine WBC (Auto) 01/16/17 01/16/17 01/17/17 13:45 21:39 04:10 WBC 4.4 L RBC 2.98 L Hgb 7.7 L Hct 23.3 L MCV 78 L MCH 26 L RDW 18.1 H Plt Count Lymph % (Auto) [place] % (Auto) Eos % (Auto) Seg Neutrophils % Seg Neuts % (Manual) Lymphocytes % (Manual) Seg Neutrophils # Seg Neutrophils # Man Lymphocytes # (Manual) POC ABG pH ABG pH POC ABG pCO2 POC ABG pO2 ABG pO2 ABG HCO3 ABG Base Excess ABG Hemoglobin Oxyhemoglobin Sodium Potassium Chloride Carbon Dioxide BUN Glucose POC Glucose 236 H 258 H Calcium AST Alkaline Phosphatase Albumin Urine WBC (Auto) 01/17/17 01/17/17 01/17/17 04:10 04:35 12:23 WBC RBC Hgb Hct MCV MCH RDW Plt Count Lymph % (Auto) [place] % (Auto) Eos % (Auto) Seg Neutrophils % Seg Neuts % (Manual) Lymphocytes % (Manual) Seg Neutrophils # Seg Neutrophils # Man Lymphocytes # (Manual) POC ABG pH ABG pH POC ABG pCO2 POC ABG pO2 ABG pO2 160.3 H ABG HCO3 ABG Base Excess -2.3 L ABG Hemoglobin 7.9 L Oxyhemoglobin Sodium Potassium 3.3 L Chloride 108.7 H Carbon Dioxide 20 L BUN 8 L Glucose 202 H POC Glucose 321 H Calcium 7.6 L AST Alkaline Phosphatase Albumin Urine WBC (Auto) 01/17/17 01/18/17 01/18/17 16:01 05:07 12:09 WBC RBC Hgb Hct MCV MCH RDW Plt Count Lymph % (Auto) [place] % (Auto) Eos % (Auto) Seg Neutrophils % Seg Neuts % (Manual) Lymphocytes % (Manual) Seg Neutrophils # Seg Neutrophils # Man Lymphocytes # (Manual) POC ABG pH ABG pH POC ABG pCO2 POC ABG pO2 ABG pO2 ABG HCO3 ABG Base Excess ABG Hemoglobin Oxyhemoglobin Sodium Potassium Chloride Carbon Dioxide BUN Glucose POC Glucose 239 H 155 H 203 H Calcium AST Alkaline Phosphatase Albumin Urine WBC (Auto) 01/18/17 01/18/17 01/19/17 17:54 23:43 04:28 WBC RBC Hgb Hct MCV MCH RDW Plt Count Lymph % (Auto) [place] % (Auto) Eos % (Auto) Seg Neutrophils % Seg Neuts % (Manual) Lymphocytes % (Manual) Seg Neutrophils # Seg Neutrophils # Man Lymphocytes # (Manual) POC ABG pH ABG pH POC ABG pCO2 POC ABG pO2 ABG pO2 ABG HCO3 ABG Base Excess ABG Hemoglobin Oxyhemoglobin Sodium Potassium Chloride Carbon Dioxide BUN Glucose POC Glucose 132 H 125 H 182 H Calcium AST Alkaline Phosphatase Albumin Urine WBC (Auto) 01/19/17 01/19/17 01/20/17 12:11 17:23 00:12 WBC RBC Hgb Hct MCV MCH RDW Plt Count Lymph % (Auto) [place] % (Auto) Eos % (Auto) Seg Neutrophils % Seg Neuts % (Manual) Lymphocytes % (Manual) Seg Neutrophils # Seg Neutrophils # Man Lymphocytes # (Manual) POC ABG pH ABG pH POC ABG pCO2 POC ABG pO2 ABG pO2 ABG HCO3 ABG Base Excess ABG Hemoglobin Oxyhemoglobin Sodium Potassium Chloride Carbon Dioxide BUN Glucose POC Glucose 153 H 66 L 139 H Calcium AST Alkaline Phosphatase Albumin Urine WBC (Auto) 01/20/17 01/20/17 01/20/17 05:44 11:48 17:42 WBC RBC Hgb Hct MCV MCH RDW Plt Count Lymph % (Auto) [place] % (Auto) Eos % (Auto) Seg Neutrophils % Seg Neuts % (Manual) Lymphocytes % (Manual) Seg Neutrophils # Seg Neutrophils # Man Lymphocytes # (Manual) POC ABG pH ABG pH POC ABG pCO2 POC ABG pO2 ABG pO2 ABG HCO3 ABG Base Excess ABG Hemoglobin Oxyhemoglobin Sodium Potassium Chloride Carbon Dioxide BUN Glucose POC Glucose 176 H 218 H 132 H Calcium AST Alkaline Phosphatase Albumin Urine WBC (Auto) 01/20/17 01/21/17 01/21/17 23:43 05:34 11:17 WBC RBC Hgb Hct MCV MCH RDW Plt Count Lymph % (Auto) [place] % (Auto) Eos % (Auto) Seg Neutrophils % Seg Neuts % (Manual) Lymphocytes % (Manual) Seg Neutrophils # Seg Neutrophils # Man Lymphocytes # (Manual) POC ABG pH ABG pH POC ABG pCO2 POC ABG pO2 ABG pO2 ABG HCO3 ABG Base Excess ABG Hemoglobin Oxyhemoglobin Sodium Potassium Chloride Carbon Dioxide BUN Glucose POC Glucose 178 H 106 H 213 H Calcium AST Alkaline Phosphatase Albumin Urine WBC (Auto) 01/21/17 01/22/17 01/22/17 23:37 04:00 04:00 WBC RBC 3.26 L Hgb 8.3 L Hct 25.5 L MCV 78 L MCH 25 L RDW 17.9 H Plt Count Lymph % (Auto) [place] % (Auto) 7.9 H Eos % (Auto) 6.2 H Seg Neutrophils % Seg Neuts % (Manual) Lymphocytes % (Manual) Seg Neutrophils # Seg Neutrophils # Man Lymphocytes # (Manual) POC ABG pH ABG pH POC ABG pCO2 POC ABG pO2 ABG pO2 ABG HCO3 ABG Base Excess ABG Hemoglobin Oxyhemoglobin Sodium Potassium Chloride 95.5 L Carbon Dioxide 31 H D BUN Glucose 134 H POC Glucose 140 H Calcium AST 44 H Alkaline Phosphatase 379 H Albumin 2.7 L Urine WBC (Auto) 01/22/17 01/22/17 01/22/17 04:58 12:12 18:12 WBC RBC Hgb Hct MCV MCH RDW Plt Count Lymph % (Auto) [place] % (Auto) Eos % (Auto) Seg Neutrophils % Seg Neuts % (Manual) Lymphocytes % (Manual) Seg Neutrophils # Seg Neutrophils # Man Lymphocytes # (Manual) POC ABG pH ABG pH POC ABG pCO2 POC ABG pO2 ABG pO2 ABG HCO3 ABG Base Excess ABG Hemoglobin Oxyhemoglobin Sodium Potassium Chloride Carbon Dioxide BUN Glucose POC Glucose 146 H 255 H 182 H Calcium AST Alkaline Phosphatase Albumin Urine WBC (Auto) 01/22/17 01/23/17 01/23/17 23:39 04:43 12:12 WBC RBC Hgb Hct MCV MCH RDW Plt Count Lymph % (Auto) [place] % (Auto) Eos % (Auto) Seg Neutrophils % Seg Neuts % (Manual) Lymphocytes % (Manual) Seg Neutrophils # Seg Neutrophils # Man Lymphocytes # (Manual) POC ABG pH ABG pH POC ABG pCO2 POC ABG pO2 ABG pO2 ABG HCO3 ABG Base Excess ABG Hemoglobin Oxyhemoglobin Sodium Potassium Chloride Carbon Dioxide BUN Glucose POC Glucose 134 H 218 H 128 H Calcium AST Alkaline Phosphatase Albumin Urine WBC (Auto) 01/23/17 01/24/17 01/24/17 17:36 00:08 05:16 WBC RBC Hgb Hct MCV MCH RDW Plt Count Lymph % (Auto) [place] % (Auto) Eos % (Auto) Seg Neutrophils % Seg Neuts % (Manual) Lymphocytes % (Manual) Seg Neutrophils # Seg Neutrophils # Man Lymphocytes # (Manual) POC ABG pH ABG pH POC ABG pCO2 POC ABG pO2 ABG pO2 ABG HCO3 ABG Base Excess ABG Hemoglobin Oxyhemoglobin Sodium Potassium Chloride Carbon Dioxide BUN Glucose POC Glucose 156 H 129 H 169 H Calcium AST Alkaline Phosphatase Albumin Urine WBC (Auto) 01/24/17 01/24/17 01/24/17 11:40 17:43 23:23 WBC RBC Hgb Hct MCV MCH RDW Plt Count Lymph % (Auto) [place] % (Auto) Eos % (Auto) Seg Neutrophils % Seg Neuts % (Manual) Lymphocytes % (Manual) Seg Neutrophils # Seg Neutrophils # Man Lymphocytes # (Manual) POC ABG pH ABG pH POC ABG pCO2 POC ABG pO2 ABG pO2 ABG HCO3 ABG Base Excess ABG Hemoglobin Oxyhemoglobin Sodium Potassium Chloride Carbon Dioxide BUN Glucose POC Glucose 187 H 215 H 222 H Calcium AST Alkaline Phosphatase Albumin Urine WBC (Auto) 01/25/17 01/25/17 01/25/17 04:56 11:52 17:37 WBC RBC Hgb Hct MCV MCH RDW Plt Count Lymph % (Auto) [place] % (Auto) Eos % (Auto) Seg Neutrophils % Seg Neuts % (Manual) Lymphocytes % (Manual) Seg Neutrophils # Seg Neutrophils # Man Lymphocytes # (Manual) POC ABG pH ABG pH POC ABG pCO2 POC ABG pO2 ABG pO2 ABG HCO3 ABG Base Excess ABG Hemoglobin Oxyhemoglobin Sodium Potassium Chloride Carbon Dioxide BUN Glucose POC Glucose 210 H 284 H 218 H Calcium AST Alkaline Phosphatase Albumin Urine WBC (Auto) 01/26/17 01/26/17 01/26/17 00:02 05:33 12:17 WBC RBC Hgb Hct MCV MCH RDW Plt Count Lymph % (Auto) [place] % (Auto) Eos % (Auto) Seg Neutrophils % Seg Neuts % (Manual) Lymphocytes % (Manual) Seg Neutrophils # Seg Neutrophils # Man Lymphocytes # (Manual) POC ABG pH ABG pH POC ABG pCO2 POC ABG pO2 ABG pO2 ABG HCO3 ABG Base Excess ABG Hemoglobin Oxyhemoglobin Sodium Potassium Chloride Carbon Dioxide BUN Glucose POC Glucose 192 H 199 H 227 H Calcium AST Alkaline Phosphatase Albumin Urine WBC (Auto) 01/26/17 01/26/17 01/27/17 17:50 23:57 05:31 WBC RBC Hgb Hct MCV MCH RDW Plt Count Lymph % (Auto) [place] % (Auto) Eos % (Auto) Seg Neutrophils % Seg Neuts % (Manual) Lymphocytes % (Manual) Seg Neutrophils # Seg Neutrophils # Man Lymphocytes # (Manual) POC ABG pH ABG pH POC ABG pCO2 POC ABG pO2 ABG pO2 ABG HCO3 ABG Base Excess ABG Hemoglobin Oxyhemoglobin Sodium Potassium Chloride Carbon Dioxide BUN Glucose POC Glucose 229 H 186 H 285 H Calcium AST Alkaline Phosphatase Albumin Urine WBC (Auto) 01/27/17 01/27/17 01/27/17 11:42 17:47 23:58 WBC RBC Hgb Hct MCV MCH RDW Plt Count Lymph % (Auto) [place] % (Auto) Eos % (Auto) Seg Neutrophils % Seg Neuts % (Manual) Lymphocytes % (Manual) Seg Neutrophils # Seg Neutrophils # Man Lymphocytes # (Manual) POC ABG pH ABG pH POC ABG pCO2 POC ABG pO2 ABG pO2 ABG HCO3 ABG Base Excess ABG Hemoglobin Oxyhemoglobin Sodium Potassium Chloride Carbon Dioxide BUN Glucose POC Glucose 260 H 329 H 225 H Calcium AST Alkaline Phosphatase Albumin Urine WBC (Auto) 01/27/17 01/27/17 01/28/17 Unknown Unknown 03:44 WBC 12.1 H RBC 3.28 L 3.14 L Hgb 8.5 L 8.2 L Hct 25.5 L 24.1 L MCV 78 L 77 L MCH 26 L 26 L RDW 16.8 H 16.9 H Plt Count 601 H 567 H Lymph % (Auto) [place] % (Auto) Eos % (Auto) Seg Neutrophils % Seg Neuts % (Manual) Lymphocytes % (Manual) Seg Neutrophils # Seg Neutrophils # Man Lymphocytes # (Manual) POC ABG pH ABG pH POC ABG pCO2 POC ABG pO2 ABG pO2 ABG HCO3 ABG Base Excess ABG Hemoglobin Oxyhemoglobin Sodium 128 L Potassium 5.4 H Chloride 87.5 L Carbon Dioxide BUN 44 H Glucose 250 H POC Glucose Calcium AST Alkaline Phosphatase Albumin Urine WBC (Auto) 01/28/17 03:44 WBC RBC Hgb Hct MCV MCH RDW Plt Count Lymph % (Auto) [place] % (Auto) Eos % (Auto) Seg Neutrophils % Seg Neuts % (Manual) Lymphocytes % (Manual) Seg Neutrophils # Seg Neutrophils # Man Lymphocytes # (Manual) POC ABG pH ABG pH POC ABG pCO2 POC ABG pO2 ABG pO2 ABG HCO3 ABG Base Excess ABG Hemoglobin Oxyhemoglobin Sodium Potassium Chloride Carbon Dioxide BUN 42 H Glucose 128 H POC Glucose Calcium AST Alkaline Phosphatase Albumin Urine WBC (Auto)
[2017-01-28] MEDS: NORMODYNE PO SCH ×2 (09:36→22:09)
[2017-01-28] MEDS: HEPARIN SUB-Q SCH ×2 (09:36→22:04)
[2017-01-28] MEDS: LEVEMIR (NF) SUB-Q SCH (09:37)
[2017-01-28] MEDS: PEPCID PO SCH ×2 (09:37→22:13)
--- NOTE | 2017-01-28 10:17 | Progress Note ---
Assessment and Plan Assessment and plan: Hypoglycemic brain injury. patient was found hypoglycemic. He is now in vegetative state. Neurology following. Persistent vegetative state. Metabolic encephalopathy due to hypoglycemia Hypoglycemia/hypothermia, resolved Acute respiratory failure. He has been on mechanical ventilator greater than 96 hours Sepsis ruled out, Hyponatremia. Sodium level today, pending Hypothyroidism Diabetes mellitus type 2. Check fingerstick glucose q 6h. Blood glucose was elevated. Yesterday increased Levemir dose to 8 Units subcut Qam. Hypertension. BP stable Fever,recurrent with Tmax 103. Obtain Blood cultures x 2, Urinalysis, Urine culture Patient is DNR- awaiting hospice placement, needs guardianship from the state to give consent, as has no family to give consent History Interval history: Patient found unresponsive, diagnosed with hypoglycemia with brain injury, Still unresponsive, fever with Tmax 101.9 Hospitalist Physical - Physical exam Narrative exam: Gen Appearance: Not in acute distress, malnourished HEENT: normocephalic, atraumatic Neck: supple, no JVD Lungs: clear to auscultation bilaterally, no crackles or wheezes Heart: S1 and S2 regular, no murmurs, rubs or gallop Abdomen: Soft , non tender, non distended, normal bowel sounds Extremity: No edema, clubbing or cyanosis Neuro : Intubated, Unresponsive, vegetative state - Constitutional Vitals: Temp Pulse Resp BP Pulse Ox 103.1 F H 77 23 122/65 100 01/28/17 03:37 01/28/17 09:36 01/28/17 08:00 01/28/17 09:36 01/28/17 08:00 General appearance: Present: severe distress Results - Labs CBC & Chem 7: 01/28/17 03:44 01/28/17 03:44 Labs: Laboratory Last Values WBC 10.8 K/mm3 (4.5-11.0) 01/28/17 03:44 RBC 3.14 M/mm3 (3.65-5.03) L 01/28/17 03:44 Hgb 8.2 gm/dl (11.8-15.2) L 01/28/17 03:44 Hct 24.1 % (35.5-45.6) L 01/28/17 03:44 MCV 77 fl (84-94) L 01/28/17 03:44 MCH 26 pg (28-32) L 01/28/17 03:44 MCHC 34 % (32-34) 01/28/17 03:44 RDW 16.9 % (13.2-15.2) H 01/28/17 03:44 Plt Count 567 K/mm3 (140-440) H 01/28/17 03:44 Lymph % (Auto) 34.4 % (13.4-35.0) 01/22/17 04:00 [place] % (Auto) 7.9 % (0.0-7.3) H 01/22/17 04:00 Eos % (Auto) 6.2 % (0.0-4.3) H 01/22/17 04:00 Baso % (Auto) 1.1 % (0.0-1.8) 01/22/17 04:00 Lymph # 1.8 K/mm3 (1.2-5.4) 01/22/17 04:00 [place] # 0.4 K/mm3 (0.0-0.8) 01/22/17 04:00 Eos # 0.3 K/mm3 (0.0-0.4) 01/22/17 04:00 Baso # 0.1 K/mm3 (0.0-0.1) 01/22/17 04:00 Add Manual Diff Complete 01/10/17 04:30 Total Counted 100 01/10/17 04:30 Seg Neutrophils % 50.4 % (40.0-70.0) 01/22/17 04:00 Seg Neuts % (Manual) 88.0 % (40.0-70.0) H 01/10/17 04:30 Band Neutrophils % 7.0 % 01/10/17 04:30 Lymphocytes % (Manual) 4.0 % (13.4-35.0) L 01/10/17 04:30 Reactive Lymphs % (Man) 0 % 01/10/17 04:30 Monocytes % (Manual) 1.0 % (0.0-7.3) 01/10/17 04:30 Eosinophils % (Manual) 0 % (0.0-4.3) 01/10/17 04:30 Basophils % (Manual) 0 % (0.0-1.8) 01/10/17 04:30 Metamyelocytes % 0 % 01/10/17 04:30 Myelocytes % 0 % 01/10/17 04:30 Promyelocytes % 0 % 01/10/17 04:30 Blast Cells % 0 % 01/10/17 04:30 Nucleated RBC % Not Reportable 01/10/17 04:30 Seg Neutrophils # 2.7 K/mm3 (1.8-7.7) 01/22/17 04:00 Seg Neutrophils # Man 21.2 K/mm3 (1.8-7.7) H 01/10/17 04:30 Band Neutrophils # 1.7 K/mm3 01/10/17 04:30 Lymphocytes # (Manual) 1.0 K/mm3 (1.2-5.4) L 01/10/17 04:30 Abs React Lymphs (Man) 0.0 K/mm3 01/10/17 04:30 Monocytes # (Manual) 0.2 K/mm3 (0.0-0.8) 01/10/17 04:30 Eosinophils # (Manual) 0.0 K/mm3 (0.0-0.4) 01/10/17 04:30 Basophils # (Manual) 0.0 K/mm3 (0.0-0.1) 01/10/17 04:30 Metamyelocytes # 0.0 K/mm3 01/10/17 04:30 Myelocytes # 0.0 K/mm3 01/10/17 04:30 Promyelocytes # 0.0 K/mm3 01/10/17 04:30 Blast Cells # 0.0 K/mm3 01/10/17 04:30 WBC Morphology Not Reportable 01/10/17 04:30 Hypersegmented Neuts Not Reportable 01/10/17 04:30 Hyposegmented Neuts Not Reportable 01/10/17 04:30 Hypogranular Neuts Not Reportable 01/10/17 04:30 Smudge Cells Not Reportable 01/10/17 04:30 Toxic Granulation Not Reportable 01/10/17 04:30 Toxic Vacuolation Not Reportable 01/10/17 04:30 Dohle Bodies Not Reportable 01/10/17 04:30 Pelger-Huet Anomaly Not Reportable 01/10/17 04:30 [place] Rods Not Reportable 01/10/17 04:30 Platelet Estimate Consistent w auto 01/10/17 04:30 Clumped Platelets Not Reportable 01/10/17 04:30 Plt Clumps, EDTA Not Reportable 01/10/17 04:30 Large Platelets Not Reportable 01/10/17 04:30 Giant Platelets Not Reportable 01/10/17 04:30 Platelet Satelliting Not Reportable 01/10/17 04:30 Plt Morphology Comment Not Reportable 01/10/17 04:30 RBC Morphology Not Reportable 01/10/17 04:30 Dimorphic RBCs Not Reportable 01/10/17 04:30 Polychromasia Not Reportable 01/10/17 04:30 Hypochromasia 1+ 01/10/17 04:30 Poikilocytosis Not Reportable 01/10/17 04:30 Anisocytosis Not Reportable 01/10/17 04:30 Microcytosis Not Reportable 01/10/17 04:30 Macrocytosis Not Reportable 01/10/17 04:30 Spherocytes Not Reportable 01/10/17 04:30 Pappenheimer Bodies Not Reportable 01/10/17 04:30 Sickle Cells Not Reportable 01/10/17 04:30 Target Cells Not Reportable 01/10/17 04:30 Tear Drop Cells Not Reportable 01/10/17 04:30 Ovalocytes Not Reportable 01/10/17 04:30 Helmet Cells Not Reportable 01/10/17 04:30 [place] Bodies Not Reportable 01/10/17 04:30 [place] Rings Not Reportable 01/10/17 04:30 [place] Cells Not Reportable 01/10/17 04:30 Bite Cells Not Reportable 01/10/17 04:30 Crenated Cell Not Reportable 01/10/17 04:30 Elliptocytes Not Reportable 01/10/17 04:30 Acanthocytes (Spur) Not Reportable 01/10/17 04:30 Rouleaux Not Reportable 01/10/17 04:30 Hemoglobin C Crystals Not Reportable 01/10/17 04:30 Schistocytes Not Reportable 01/10/17 04:30 Malaria parasites Not Reportable 01/10/17 04:30 [place] Bodies Not Reportable 01/10/17 04:30 Hem Pathologist Commnt No 01/10/17 04:30 PT 14.1 Sec. (12.2-14.9) 01/17/17 04:10 INR 1.04 (0.87-1.13) 01/17/17 04:10 APTT 36.6 Sec. (24.2-36.6) 01/17/17 04:10 POC ABG pH 7.485 (7.35-7.45) H 01/13/17 04:26 ABG pH 7.420 pH Units (7.350-7.450) 01/17/17 04:35 POC ABG pCO2 25.4 (35-45) L 01/13/17 04:26 ABG pCO2 34.5 mm Hg 01/17/17 04:35 POC ABG pO2 73 (80-105) L 01/13/17 04:26 ABG pO2 160.3 mm Hg (80.0-90.0) H 01/17/17 04:35 POC ABG HCO3 19.1 01/13/17 04:26 ABG HCO3 21.9 mmol/L (20.0-26.0) 01/17/17 04:35 POC ABG Total CO2 20 01/13/17 04:26 POC ABG O2 Sat 96 01/13/17 04:26 ABG O2 Saturation 99.0 % (95.0-99.0) 01/17/17 04:35 ABG O2 Content 11.1 (0.0-44) 01/17/17 04:35 POC ABG Base Excess -4 01/13/17 04:26 ABG Base Excess -2.3 mmol/L (-2.0-3.0) L 01/17/17 04:35 ABG Hemoglobin 7.9 gm/dl (14.0-18.0) L 01/17/17 04:35 ABG Carboxyhemoglobin 1.5 % (0.0-5.0) 01/17/17 04:35 ABG Methemoglobin 0.5 % (0.0-1.5) 01/17/17 04:35 VBG pH 7.284 (7.320-7.420) L 01/09/17 10:16 Oxyhemoglobin 97.1 % (95.0-99.0) 01/17/17 04:35 FiO2 30 % 01/17/17 04:35 Sodium 128 mmol/L (137-145) L 01/27/17 Unknown Potassium 5.4 mmol/L (3.6-5.0) H 01/27/17 Unknown Chloride 87.5 mmol/L (98-107) L 01/27/17 Unknown Carbon Dioxide 29 mmol/L (22-30) 01/28/17 03:44 Anion Gap 18 mmol/L 01/27/17 Unknown BUN 42 mg/dL (9-20) H 01/28/17 03:44 Creatinine 0.9 mg/dL (0.8-1.5) 01/28/17 03:44 Estimated GFR > 60 ml/min 01/28/17 03:44 BUN/Creatinine Ratio 47 % 01/28/17 03:44 Glucose 128 mg/dL (75-100) H 01/28/17 03:44 POC Glucose 225 (70-105) H 01/27/17 23:58 Lactic Acid 1.00 mmol/L (0.7-2.0) 01/09/17 10:16 Calcium 8.7 mg/dL (8.4-10.2) 01/28/17 03:44 Phosphorus 3.60 mg/dL (2.5-4.5) 01/22/17 04:00 Magnesium 2.10 mg/dL (1.7-2.3) 01/22/17 04:00 Total Bilirubin 0.30 mg/dL (0.1-1.2) 01/22/17 04:00 AST 44 units/L (5-40) H 01/22/17 04:00 ALT 23 units/L (7-56) 01/22/17 04:00 Alkaline Phosphatase 379 units/L (35-129) H 01/22/17 04:00 Ammonia 35.0 umol/L (25-60) 01/09/17 10:16 Total Creatine Kinase 135 units/L (55-170) 01/09/17 10:16 CK-MB (CK-2) 7.1 ng/mL (0.0-4.0) H 01/09/17 10:16 CK-MB (CK-2) Rel Index 5.2 (0-4) H 01/09/17 10:16 Troponin T < 0.010 ng/mL (0.00-0.029) 01/09/17 10:16 NT-Pro-B Natriuret Pep 602.9 pg/mL (0-900) 01/09/17 10:16 Total Protein 7.9 g/dL (6.3-8.2) 01/22/17 04:00 Albumin 2.7 g/dL (3.9-5) L 01/22/17 04:00 Albumin/Globulin Ratio 0.5 % 01/22/17 04:00 TSH 52.800 mlU/mL (0.270-4.200) H 01/09/17 10:16 Free T4 0.78 ng/dL (0.76-1.46) 01/09/17 10:16 Total Cortisol 54.8 mcg/dL () 01/09/17 16:19 Urine Color Yellow (Yellow) 01/14/17 14:07 Urine Turbidity Clear (Clear) 01/14/17 14:07 Urine pH 5.0 (5.0-7.0) 01/14/17 14:07 Ur Specific [place] 1.011 (1.003-1.030) 01/14/17 14:07 Urine Protein <15 mg/dl mg/dL (Negative) 01/14/17 14:07 Urine Glucose (UA) Neg mg/dL (Negative) 01/14/17 14:07 Urine Ketones Neg mg/dL (Negative) 01/14/17 14:07 Urine Blood Sm (Negative) 01/14/17 14:07 Urine Nitrite Neg (Negative) 01/14/17 14:07 Urine Bilirubin Neg (Negative) 01/14/17 14:07 Urine Urobilinogen < 2.0 mg/dL (<2.0) 01/14/17 14:07 Ur Leukocyte Esterase Lg (Negative) 01/14/17 14:07 Urine WBC (Auto) 53.0 /HPF (0.0-6.0) H 01/14/17 14:07 Urine RBC (Auto) 12.0 /HPF (0.0-6.0) 01/14/17 14:07 Urine Bacteria (Auto) 1+ /HPF (Negative) 01/09/17 10:23 Urine Mucus Few /HPF 01/14/17 14:07 Urine Yeast (Budding) 3+ /HPF 01/14/17 14:07 Salicylates < 0.3 mg/dL (2.8-20.0) L 01/09/17 10:16 Urine Opiates Screen Presumptive negative 01/09/17 10:23 Urine Methadone Screen Presumptive negative 01/09/17 10:23 Acetaminophen < 15.0 ug/mL (10.0-30.0) 01/09/17 10:16 Ur Barbiturates Screen Presumptive negative 01/09/17 10:23 Ur Phencyclidine Scrn Presumptive negative 01/09/17 10:23 Ur Amphetamines Screen Presumptive negative 01/09/17 10:23 U Benzodiazepines Scrn Presumptive negative 01/09/17 10:23 Urine Cocaine Screen Presumptive negative 01/09/17 10:23 U Marijuana (THC) Screen Presumptive negative 01/09/17 10:23 Drugs of Abuse Note Disclamer 01/09/17 10:23 Plasma/Serum Alcohol < 0.01 gm% (0-0.07) 01/09/17 10:16
[2017-01-28 18:45] LABS: Bacteria,Urine 2+ /HPF (Negative); Bilirubin,Urine NEG (Negative); Blood,Urine SM (Negative); Color,Urine Yellow (Yellow); Urobilinogen,Urine < 2.0 mg/dL (<2.0)
[2017-01-28 18:46] LABS: WBC,Urine > 182.0 /HPF (0.0-6.0)
[2017-01-29] MEDS: NOVOLOG SUB-Q SCH ×3 (00:09→13:00)
[2017-01-29] MEDS ORDERED: VANCOMYCIN VIAL IV ONE (01:07)
[2017-01-29] MEDS ORDERED: VANCOMYCIN/NS 1 GM/250 ML 1 GM/250 ML BAG IV ONE (02:00)
[2017-01-29] MEDS ORDERED: VANCOMYCIN PHARMACY TO DOSE IV SCH (02:00)
[2017-01-29] MEDS: ZOSYN/NS 4.5GM/100ML 4.5 GM/100 ML VIAL IV SCH ×4 (03:11→21:53)
[2017-01-29 05:44] LABS: Hematocrit 25.1 % (35.5-45.6); Hemoglobin 8.3 gm/dl (11.8-15.2); Mean Corpuscular HGB Conc 33 % (32-34); Mean Corpuscular Volume 77 fl (84-94); Platelet Count 514 K/mm3 (140-440); Red Blood Count 3.25 M/mm3 (3.65-5.03); Red Cell Distribution Width 16.8 % (13.2-15.2)
[2017-01-29 06:03] LABS: Mean Corpuscular Hemoglobin 26 pg (28-32)
[2017-01-29 06:08] LABS: BUN/Creatinine Ratio 43; Blood Urea Nitrogen 34 mg/dL (9-20); Calcium 8.7 mg/dL (8.4-10.2); Hemolysis Index 4
[2017-01-29] MEDS: SYNTHROID PO SCH (06:16)
[2017-01-29] MEDS: NACL 0.9% 1000 ML 1,000 ML IV SCH (08:08)
[2017-01-29] MEDS: TYLENOL FEEDTUBE PRN ×2 (08:09→21:56)
--- NOTE | 2017-01-29 08:52 | Progress Note ---
Assessment and Plan Assessment and plan: Hypoglycemic brain injury. patient was found hypoglycemic. He is now in vegetative state. Neurology following. Persistent vegetative state. Metabolic encephalopathy due to hypoglycemia Hypoglycemia/hypothermia, resolved Acute respiratory failure. He has been on mechanical ventilator greater than 96 hours Hyponatremia. Sodium level 137 today Hypothyroidism Diabetes mellitus type 2. Check fingerstick glucose q 6h. Blood glucose was elevated. Yesterday increased Levemir dose to 8 Units subcut Qam. Hypertension. BP stable Fever,recurrent with temperature of 103.1 this morning. Obtain Blood cultures x 2, Urinalysis shows UTI. Started on Zosyn and Vancomycin., Urine culture To r/o sepsis Patient is DNR- awaiting hospice placement, needs guardianship from the state to give consent, as has no family to give consent History Interval history: Patient found unresponsive, diagnosed with hypoglycemia with brain injury, Still unresponsive, Still having fever, Hospitalist Physical - Physical exam Narrative exam: Gen Appearance: Not in acute distress, malnourished HEENT: normocephalic, atraumatic Neck: supple, no JVD Lungs: clear to auscultation bilaterally, no crackles or wheezes Heart: S1 and S2 regular, no murmurs, rubs or gallop Abdomen: Soft , non tender, non distended, normal bowel sounds Extremity: No edema, clubbing or cyanosis Neuro : Intubated, Unresponsive, vegetative state - Constitutional Vitals: Temp Pulse Resp BP Pulse Ox 103.1 F H 92 H 18 117/64 98 01/29/17 08:00 01/29/17 08:00 01/29/17 08:00 01/29/17 08:00 01/29/17 08:00 General appearance: Present: severe distress Results - Labs CBC & Chem 7: 01/29/17 05:25 01/29/17 05:25 Labs: Laboratory Last Values WBC 13.6 K/mm3 (4.5-11.0) H 01/29/17 05:25 RBC 3.25 M/mm3 (3.65-5.03) L 01/29/17 05:25 Hgb 8.3 gm/dl (11.8-15.2) L 01/29/17 05:25 Hct 25.1 % (35.5-45.6) L 01/29/17 05:25 MCV 77 fl (84-94) L 01/29/17 05:25 MCH 26 pg (28-32) L 01/29/17 05:25 MCHC 33 % (32-34) 01/29/17 05:25 RDW 16.8 % (13.2-15.2) H 01/29/17 05:25 Plt Count 514 K/mm3 (140-440) H 01/29/17 05:25 Lymph % (Auto) 34.4 % (13.4-35.0) 01/22/17 04:00 [place] % (Auto) 7.9 % (0.0-7.3) H 01/22/17 04:00 Eos % (Auto) 6.2 % (0.0-4.3) H 01/22/17 04:00 Baso % (Auto) 1.1 % (0.0-1.8) 01/22/17 04:00 Lymph # 1.8 K/mm3 (1.2-5.4) 01/22/17 04:00 [place] # 0.4 K/mm3 (0.0-0.8) 01/22/17 04:00 Eos # 0.3 K/mm3 (0.0-0.4) 01/22/17 04:00 Baso # 0.1 K/mm3 (0.0-0.1) 01/22/17 04:00 Add Manual Diff Complete 01/10/17 04:30 Total Counted 100 01/10/17 04:30 Seg Neutrophils % 50.4 % (40.0-70.0) 01/22/17 04:00 Seg Neuts % (Manual) 88.0 % (40.0-70.0) H 01/10/17 04:30 Band Neutrophils % 7.0 % 01/10/17 04:30 Lymphocytes % (Manual) 4.0 % (13.4-35.0) L 01/10/17 04:30 Reactive Lymphs % (Man) 0 % 01/10/17 04:30 Monocytes % (Manual) 1.0 % (0.0-7.3) 01/10/17 04:30 Eosinophils % (Manual) 0 % (0.0-4.3) 01/10/17 04:30 Basophils % (Manual) 0 % (0.0-1.8) 01/10/17 04:30 Metamyelocytes % 0 % 01/10/17 04:30 Myelocytes % 0 % 01/10/17 04:30 Promyelocytes % 0 % 01/10/17 04:30 Blast Cells % 0 % 01/10/17 04:30 Nucleated RBC % Not Reportable 01/10/17 04:30 Seg Neutrophils # 2.7 K/mm3 (1.8-7.7) 01/22/17 04:00 Seg Neutrophils # Man 21.2 K/mm3 (1.8-7.7) H 01/10/17 04:30 Band Neutrophils # 1.7 K/mm3 01/10/17 04:30 Lymphocytes # (Manual) 1.0 K/mm3 (1.2-5.4) L 01/10/17 04:30 Abs React Lymphs (Man) 0.0 K/mm3 01/10/17 04:30 Monocytes # (Manual) 0.2 K/mm3 (0.0-0.8) 01/10/17 04:30 Eosinophils # (Manual) 0.0 K/mm3 (0.0-0.4) 01/10/17 04:30 Basophils # (Manual) 0.0 K/mm3 (0.0-0.1) 01/10/17 04:30 Metamyelocytes # 0.0 K/mm3 01/10/17 04:30 Myelocytes # 0.0 K/mm3 01/10/17 04:30 Promyelocytes # 0.0 K/mm3 01/10/17 04:30 Blast Cells # 0.0 K/mm3 01/10/17 04:30 WBC Morphology Not Reportable 01/10/17 04:30 Hypersegmented Neuts Not Reportable 01/10/17 04:30 Hyposegmented Neuts Not Reportable 01/10/17 04:30 Hypogranular Neuts Not Reportable 01/10/17 04:30 Smudge Cells Not Reportable 01/10/17 04:30 Toxic Granulation Not Reportable 01/10/17 04:30 Toxic Vacuolation Not Reportable 01/10/17 04:30 Dohle Bodies Not Reportable 01/10/17 04:30 Pelger-Huet Anomaly Not Reportable 01/10/17 04:30 [place] Rods Not Reportable 01/10/17 04:30 Platelet Estimate Consistent w auto 01/10/17 04:30 Clumped Platelets Not Reportable 01/10/17 04:30 Plt Clumps, EDTA Not Reportable 01/10/17 04:30 Large Platelets Not Reportable 01/10/17 04:30 Giant Platelets Not Reportable 01/10/17 04:30 Platelet Satelliting Not Reportable 01/10/17 04:30 Plt Morphology Comment Not Reportable 01/10/17 04:30 RBC Morphology Not Reportable 01/10/17 04:30 Dimorphic RBCs Not Reportable 01/10/17 04:30 Polychromasia Not Reportable 01/10/17 04:30 Hypochromasia 1+ 01/10/17 04:30 Poikilocytosis Not Reportable 01/10/17 04:30 Anisocytosis Not Reportable 01/10/17 04:30 Microcytosis Not Reportable 01/10/17 04:30 Macrocytosis Not Reportable 01/10/17 04:30 Spherocytes Not Reportable 01/10/17 04:30 Pappenheimer Bodies Not Reportable 01/10/17 04:30 Sickle Cells Not Reportable 01/10/17 04:30 Target Cells Not Reportable 01/10/17 04:30 Tear Drop Cells Not Reportable 01/10/17 04:30 Ovalocytes Not Reportable 01/10/17 04:30 Helmet Cells Not Reportable 01/10/17 04:30 [place] Bodies Not Reportable 01/10/17 04:30 [place] Rings Not Reportable 01/10/17 04:30 [place] Cells Not Reportable 01/10/17 04:30 Bite Cells Not Reportable 01/10/17 04:30 Crenated Cell Not Reportable 01/10/17 04:30 Elliptocytes Not Reportable 01/10/17 04:30 Acanthocytes (Spur) Not Reportable 01/10/17 04:30 Rouleaux Not Reportable 01/10/17 04:30 Hemoglobin C Crystals Not Reportable 01/10/17 04:30 Schistocytes Not Reportable 01/10/17 04:30 Malaria parasites Not Reportable 01/10/17 04:30 [place] Bodies Not Reportable 01/10/17 04:30 Hem Pathologist Commnt No 01/10/17 04:30 PT 14.1 Sec. (12.2-14.9) 01/17/17 04:10 INR 1.04 (0.87-1.13) 01/17/17 04:10 APTT 36.6 Sec. (24.2-36.6) 01/17/17 04:10 POC ABG pH 7.485 (7.35-7.45) H 01/13/17 04:26 ABG pH 7.420 pH Units (7.350-7.450) 01/17/17 04:35 POC ABG pCO2 25.4 (35-45) L 01/13/17 04:26 ABG pCO2 34.5 mm Hg 01/17/17 04:35 POC ABG pO2 73 (80-105) L 01/13/17 04:26 ABG pO2 160.3 mm Hg (80.0-90.0) H 01/17/17 04:35 POC ABG HCO3 19.1 01/13/17 04:26 ABG HCO3 21.9 mmol/L (20.0-26.0) 01/17/17 04:35 POC ABG Total CO2 20 01/13/17 04:26 POC ABG O2 Sat 96 01/13/17 04:26 ABG O2 Saturation 99.0 % (95.0-99.0) 01/17/17 04:35 ABG O2 Content 11.1 (0.0-44) 01/17/17 04:35 POC ABG Base Excess -4 01/13/17 04:26 ABG Base Excess -2.3 mmol/L (-2.0-3.0) L 01/17/17 04:35 ABG Hemoglobin 7.9 gm/dl (14.0-18.0) L 01/17/17 04:35 ABG Carboxyhemoglobin 1.5 % (0.0-5.0) 01/17/17 04:35 ABG Methemoglobin 0.5 % (0.0-1.5) 01/17/17 04:35 VBG pH 7.284 (7.320-7.420) L 01/09/17 10:16 Oxyhemoglobin 97.1 % (95.0-99.0) 01/17/17 04:35 FiO2 30 % 01/17/17 04:35 Sodium 137 mmol/L (137-145) 01/29/17 05:25 Potassium 4.1 mmol/L (3.6-5.0) 01/29/17 05:25 Chloride 97.8 mmol/L (98-107) L 01/29/17 05:25 Carbon Dioxide 24 mmol/L (22-30) 01/29/17 05:25 Anion Gap 19 mmol/L 01/29/17 05:25 BUN 34 mg/dL (9-20) H 01/29/17 05:25 Creatinine 0.8 mg/dL (0.8-1.5) 01/29/17 05:25 Estimated GFR > 60 ml/min 01/29/17 05:25 BUN/Creatinine Ratio 43 % 01/29/17 05:25 Glucose 222 mg/dL (75-100) H 01/29/17 05:25 POC Glucose 249 (70-105) H 01/28/17 16:47 Lactic Acid 0.80 mmol/L (0.7-2.0) 01/29/17 01:16 Calcium 8.7 mg/dL (8.4-10.2) 01/29/17 05:25 Phosphorus 3.60 mg/dL (2.5-4.5) 01/22/17 04:00 Magnesium 2.10 mg/dL (1.7-2.3) 01/22/17 04:00 Total Bilirubin 0.30 mg/dL (0.1-1.2) 01/22/17 04:00 AST 44 units/L (5-40) H 01/22/17 04:00 ALT 23 units/L (7-56) 01/22/17 04:00 Alkaline Phosphatase 379 units/L (35-129) H 01/22/17 04:00 Ammonia 35.0 umol/L (25-60) 01/09/17 10:16 Total Creatine Kinase 135 units/L (55-170) 01/09/17 10:16 CK-MB (CK-2) 7.1 ng/mL (0.0-4.0) H 01/09/17 10:16 CK-MB (CK-2) Rel Index 5.2 (0-4) H 01/09/17 10:16 Troponin T < 0.010 ng/mL (0.00-0.029) 01/09/17 10:16 NT-Pro-B Natriuret Pep 602.9 pg/mL (0-900) 01/09/17 10:16 Total Protein 7.9 g/dL (6.3-8.2) 01/22/17 04:00 Albumin 2.7 g/dL (3.9-5) L 01/22/17 04:00 Albumin/Globulin Ratio 0.5 % 01/22/17 04:00 TSH 52.800 mlU/mL (0.270-4.200) H 01/09/17 10:16 Free T4 0.78 ng/dL (0.76-1.46) 01/09/17 10:16 Total Cortisol 54.8 mcg/dL () 01/09/17 16:19 Urine Color Yellow (Yellow) 01/28/17 17:52 Urine Turbidity Clear (Clear) 01/28/17 17:52 Urine pH 6.0 (5.0-7.0) 01/28/17 17:52 Ur Specific [place] 1.016 (1.003-1.030) 01/28/17 17:52 Urine Protein 100 mg/dl mg/dL (Negative) 01/28/17 17:52 Urine Glucose (UA) >=500 mg/dL (Negative) 01/28/17 17:52 Urine Ketones Neg mg/dL (Negative) 01/28/17 17:52 Urine Blood Sm (Negative) 01/28/17 17:52 Urine Nitrite Neg (Negative) 01/28/17 17:52 Urine Bilirubin Neg (Negative) 01/28/17 17:52 Urine Urobilinogen < 2.0 mg/dL (<2.0) 01/28/17 17:52 Ur Leukocyte Esterase Lg (Negative) 01/28/17 17:52 Urine WBC (Auto) > 182.0 /HPF (0.0-6.0) H 01/28/17 17:52 Urine RBC (Auto) 113.0 /HPF (0.0-6.0) 01/28/17 17:52 Urine Bacteria (Auto) 2+ /HPF (Negative) 01/28/17 17:52 Urine WBC Clumps 3+ /HPF 01/28/17 17:52 Urine Mucus Few /HPF 01/14/17 14:07 Urine Yeast (Budding) 3+ /HPF 01/14/17 14:07 Salicylates < 0.3 mg/dL (2.8-20.0) L 01/09/17 10:16 Urine Opiates Screen Presumptive negative 01/09/17 10:23 Urine Methadone Screen Presumptive negative 01/09/17 10:23 Acetaminophen < 15.0 ug/mL (10.0-30.0) 01/09/17 10:16 Ur Barbiturates Screen Presumptive negative 01/09/17 10:23 Ur Phencyclidine Scrn Presumptive negative 01/09/17 10:23 Ur Amphetamines Screen Presumptive negative 01/09/17 10:23 U Benzodiazepines Scrn Presumptive negative 01/09/17 10:23 Urine Cocaine Screen Presumptive negative 01/09/17 10:23 U Marijuana (THC) Screen Presumptive negative 01/09/17 10:23 Drugs of Abuse Note Disclamer 01/09/17 10:23 Plasma/Serum Alcohol < 0.01 gm% (0-0.07) 01/09/17 10:16
--- NOTE | 2017-01-29 10:12 | Progress Note ---
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 started on antibx Objective Vital Signs - 12hr 01/28/17 01/28/17 01/29/17 23:00 23:22 00:00 Temperature Pulse Rate 74 76 76 Respiratory 14 22 19 Rate Blood Pressure 130/78 130/78 119/68 O2 Sat by Pulse 96 90 96 Oximetry 01/29/17 01/29/17 01/29/17 00:05 01:00 02:00 Temperature Pulse Rate 75 78 93 H Respiratory 16 18 23 Rate Blood Pressure 119/68 136/69 141/74 O2 Sat by Pulse 97 97 94 Oximetry 01/29/17 01/29/17 01/29/17 03:01 04:00 04:26 Temperature 99.7 F H Pulse Rate 106 H 103 H 100 H Respiratory 26 H 22 17 Rate Blood Pressure 136/84 117/67 117/67 O2 Sat by Pulse 97 93 100 Oximetry 01/29/17 01/29/17 01/29/17 05:00 06:00 07:00 Temperature Pulse Rate 97 H 94 H 92 H Respiratory 18 18 19 Rate Blood Pressure 103/58 108/62 117/63 O2 Sat by Pulse 97 98 97 Oximetry 01/29/17 08:00 Temperature 103.1 F H Pulse Rate 91 H Respiratory 18 Rate Blood Pressure 118/63 O2 Sat by Pulse 100 Oximetry Constitutional: no acute distress, comatose, other (intubated, on vent) Eyes: non-icteric ENT: oropharynx moist Neck: supple, no JVD Effort: normal Ascultation: Bilateral: clear, diminished breath sounds Cardiovascular: regular rate and rhythm Gastrointestinal: normoactive bowel sounds, soft, non-tender, non-distended Integumentary: normal Extremities: no cyanosis, no edema, pink and warm Neurologic: non-focal exam, pupils equal and round, other (no response to pain) Psychiatric: other (unable to obtain) CBC and BMP: 01/29/17 05:25 01/29/17 05:25 ABG, PT/INR, D-dimer: ABG POC ABG pH 7.485 (7.35-7.45) H 01/13/17 04:26 ABG pH 7.420 pH Units (7.350-7.450) 01/17/17 04:35 POC ABG pCO2 25.4 (35-45) L 01/13/17 04:26 ABG pCO2 34.5 mm Hg 01/17/17 04:35 POC ABG pO2 73 (80-105) L 01/13/17 04:26 ABG pO2 160.3 mm Hg (80.0-90.0) H 01/17/17 04:35 POC ABG HCO3 19.1 01/13/17 04:26 POC ABG Total CO2 20 01/13/17 04:26 POC ABG O2 Sat 96 01/13/17 04:26 ABG O2 Saturation 99.0 % (95.0-99.0) 01/17/17 04:35 PT/INR, D-dimer PT 14.1 Sec. (12.2-14.9) 01/17/17 04:10 INR 1.04 (0.87-1.13) 01/17/17 04:10 Abnormal lab findings: Abnormal Labs 01/09/17 01/09/17 01/09/17 12:49 13:13 14:21 WBC RBC Hgb Hct MCV MCH RDW Plt Count Lymph % (Auto) Isabella % (Auto) Eos % (Auto) Seg Neutrophils % Seg Neuts % (Manual) Lymphocytes % (Manual) Seg Neutrophils # Seg Neutrophils # Man Lymphocytes # (Manual) POC ABG pH ABG pH POC ABG pCO2 POC ABG pO2 ABG pO2 ABG HCO3 ABG Base Excess ABG Hemoglobin Oxyhemoglobin Sodium Potassium Chloride Carbon Dioxide BUN Glucose POC Glucose < 40 L 128 H 65 L Lactic Acid Calcium AST Alkaline Phosphatase Albumin Urine WBC (Auto) 01/09/17 01/09/17 01/09/17 15:09 16:28 17:14 WBC RBC Hgb Hct MCV MCH RDW Plt Count Lymph % (Auto) Isabella % (Auto) Eos % (Auto) Seg Neutrophils % Seg Neuts % (Manual) Lymphocytes % (Manual) Seg Neutrophils # Seg Neutrophils # Man Lymphocytes # (Manual) POC ABG pH ABG pH POC ABG pCO2 POC ABG pO2 ABG pO2 ABG HCO3 ABG Base Excess ABG Hemoglobin Oxyhemoglobin Sodium Potassium Chloride Carbon Dioxide BUN Glucose POC Glucose 120 H 44 L 112 H Lactic Acid Calcium AST Alkaline Phosphatase Albumin Urine WBC (Auto) 01/10/17 01/10/17 01/10/17 04:30 04:30 05:41 WBC 24.1 H RBC 3.38 L Hgb 8.5 L Hct 26.0 L MCV 77 L MCH 25 L RDW 17.9 H Plt Count 474 H Lymph % (Auto) Isabella % (Auto) Eos % (Auto) Seg Neutrophils % Seg Neuts % (Manual) 88.0 H Lymphocytes % (Manual) 4.0 L Seg Neutrophils # Seg Neutrophils # Man 21.2 H Lymphocytes # (Manual) 1.0 L POC ABG pH ABG pH POC ABG pCO2 POC ABG pO2 ABG pO2 ABG HCO3 ABG Base Excess ABG Hemoglobin Oxyhemoglobin Sodium Potassium Chloride Carbon Dioxide 17 L BUN 27 H Glucose POC Glucose 68 L Lactic Acid Calcium 7.5 L AST Alkaline Phosphatase Albumin Urine WBC (Auto) 01/10/17 01/10/17 01/10/17 05:45 07:47 10:50 WBC RBC Hgb Hct MCV MCH RDW Plt Count Lymph % (Auto) Isabella % (Auto) Eos % (Auto) Seg Neutrophils % Seg Neuts % (Manual) Lymphocytes % (Manual) Seg Neutrophils # Seg Neutrophils # Man Lymphocytes # (Manual) POC ABG pH ABG pH POC ABG pCO2 26.6 L POC ABG pO2 207 H ABG pO2 ABG HCO3 ABG Base Excess ABG Hemoglobin Oxyhemoglobin Sodium Potassium Chloride Carbon Dioxide BUN Glucose POC Glucose 148 H 165 H Lactic Acid Calcium AST Alkaline Phosphatase Albumin Urine WBC (Auto) 01/10/17 01/10/17 01/10/17 13:41 20:20 21:39 WBC RBC Hgb Hct MCV MCH RDW Plt Count Lymph % (Auto) Isabella % (Auto) Eos % (Auto) Seg Neutrophils % Seg Neuts % (Manual) Lymphocytes % (Manual) Seg Neutrophils # Seg Neutrophils # Man Lymphocytes # (Manual) POC ABG pH ABG pH POC ABG pCO2 POC ABG pO2 ABG pO2 ABG HCO3 ABG Base Excess ABG Hemoglobin Oxyhemoglobin Sodium Potassium Chloride Carbon Dioxide BUN Glucose POC Glucose 114 H 150 H 175 H Lactic Acid Calcium AST Alkaline Phosphatase Albumin Urine WBC (Auto) 01/10/17 01/11/17 01/11/17 23:24 00:19 04:06 WBC RBC Hgb Hct MCV MCH RDW Plt Count Lymph % (Auto) Isabella % (Auto) Eos % (Auto) Seg Neutrophils % Seg Neuts % (Manual) Lymphocytes % (Manual) Seg Neutrophils # Seg Neutrophils # Man Lymphocytes # (Manual) POC ABG pH 7.463 H ABG pH POC ABG pCO2 26.2 L POC ABG pO2 185 H ABG pO2 ABG HCO3 ABG Base Excess ABG Hemoglobin Oxyhemoglobin Sodium Potassium Chloride Carbon Dioxide BUN Glucose POC Glucose 155 H 163 H Lactic Acid Calcium AST Alkaline Phosphatase Albumin Urine WBC (Auto) 01/11/17 01/11/17 01/11/17 05:20 05:20 06:21 WBC 15.2 H RBC 3.40 L Hgb 8.9 L Hct 26.3 L MCV 78 L MCH 26 L RDW 18.6 H Plt Count 462 H Lymph % (Auto) 13.2 L Isabella % (Auto) Eos % (Auto) Seg Neutrophils % 80.8 H Seg Neuts % (Manual) Lymphocytes % (Manual) Seg Neutrophils # 12.3 H Seg Neutrophils # Man Lymphocytes # (Manual) POC ABG pH ABG pH POC ABG pCO2 POC ABG pO2 ABG pO2 ABG HCO3 ABG Base Excess ABG Hemoglobin Oxyhemoglobin Sodium Potassium 3.4 L Chloride 111.5 H Carbon Dioxide 17 L BUN Glucose 147 H POC Glucose 139 H Lactic Acid Calcium 8.0 L AST Alkaline Phosphatase Albumin Urine WBC (Auto) 01/11/17 01/11/17 01/11/17 07:57 11:46 16:50 WBC RBC Hgb Hct MCV MCH RDW Plt Count Lymph % (Auto) Isabella % (Auto) Eos % (Auto) Seg Neutrophils % Seg Neuts % (Manual) Lymphocytes % (Manual) Seg Neutrophils # Seg Neutrophils # Man Lymphocytes # (Manual) POC ABG pH ABG pH POC ABG pCO2 POC ABG pO2 ABG pO2 ABG HCO3 ABG Base Excess ABG Hemoglobin Oxyhemoglobin Sodium Potassium Chloride Carbon Dioxide BUN Glucose POC Glucose 188 H 199 H 235 H Lactic Acid Calcium AST Alkaline Phosphatase Albumin Urine WBC (Auto) 01/11/17 01/12/17 01/12/17 23:15 05:02 06:56 WBC RBC Hgb Hct MCV MCH RDW Plt Count Lymph % (Auto) Isabella % (Auto) Eos % (Auto) Seg Neutrophils % Seg Neuts % (Manual) Lymphocytes % (Manual) Seg Neutrophils # Seg Neutrophils # Man Lymphocytes # (Manual) POC ABG pH ABG pH POC ABG pCO2 28.0 L POC ABG pO2 178 H ABG pO2 ABG HCO3 ABG Base Excess ABG Hemoglobin Oxyhemoglobin Sodium Potassium Chloride Carbon Dioxide BUN Glucose POC Glucose 155 H 119 H Lactic Acid Calcium AST Alkaline Phosphatase Albumin Urine WBC (Auto) 01/12/17 01/13/17 01/13/17 14:50 03:37 03:37 WBC RBC 3.61 L Hgb 9.3 L Hct 28.0 L MCV 78 L MCH 26 L RDW 18.2 H Plt Count Lymph % (Auto) Isabella % (Auto) Eos % (Auto) Seg Neutrophils % Seg Neuts % (Manual) Lymphocytes % (Manual) Seg Neutrophils # Seg Neutrophils # Man Lymphocytes # (Manual) POC ABG pH ABG pH POC ABG pCO2 POC ABG pO2 ABG pO2 ABG HCO3 ABG Base Excess ABG Hemoglobin Oxyhemoglobin Sodium Potassium Chloride 112.4 H Carbon Dioxide 19 L BUN Glucose 118 H POC Glucose 164 H Lactic Acid Calcium 8.0 L AST Alkaline Phosphatase Albumin Urine WBC (Auto) 01/13/17 01/13/17 01/13/17 04:26 06:15 11:50 WBC RBC Hgb Hct MCV MCH RDW Plt Count Lymph % (Auto) Isabella % (Auto) Eos % (Auto) Seg Neutrophils % Seg Neuts % (Manual) Lymphocytes % (Manual) Seg Neutrophils # Seg Neutrophils # Man Lymphocytes # (Manual) POC ABG pH 7.485 H ABG pH POC ABG pCO2 25.4 L POC ABG pO2 73 L ABG pO2 ABG HCO3 ABG Base Excess ABG Hemoglobin Oxyhemoglobin Sodium Potassium Chloride Carbon Dioxide BUN Glucose POC Glucose 116 H 171 H Lactic Acid Calcium AST Alkaline Phosphatase Albumin Urine WBC (Auto) 01/13/17 01/14/17 01/14/17 17:31 00:02 04:50 WBC RBC 3.32 L Hgb 8.5 L Hct 26.1 L MCV 79 L MCH 26 L RDW 18.2 H Plt Count Lymph % (Auto) Isabella % (Auto) 9.0 H Eos % (Auto) Seg Neutrophils % Seg Neuts % (Manual) Lymphocytes % (Manual) Seg Neutrophils # Seg Neutrophils # Man Lymphocytes # (Manual) POC ABG pH ABG pH POC ABG pCO2 POC ABG pO2 ABG pO2 ABG HCO3 ABG Base Excess ABG Hemoglobin Oxyhemoglobin Sodium Potassium Chloride Carbon Dioxide BUN Glucose POC Glucose 203 H 157 H Lactic Acid Calcium AST Alkaline Phosphatase Albumin Urine WBC (Auto) 01/14/17 01/14/17 01/14/17 04:50 05:10 11:27 WBC RBC Hgb Hct MCV MCH RDW Plt Count Lymph % (Auto) Isabella % (Auto) Eos % (Auto) Seg Neutrophils % Seg Neuts % (Manual) Lymphocytes % (Manual) Seg Neutrophils # Seg Neutrophils # Man Lymphocytes # (Manual) POC ABG pH ABG pH POC ABG pCO2 POC ABG pO2 ABG pO2 ABG HCO3 ABG Base Excess ABG Hemoglobin Oxyhemoglobin Sodium Potassium Chloride 112.5 H Carbon Dioxide BUN Glucose 149 H POC Glucose 176 H 147 H Lactic Acid Calcium 8.1 L AST Alkaline Phosphatase Albumin Urine WBC (Auto) 01/14/17 01/14/17 01/15/17 14:07 16:52 00:04 WBC RBC Hgb Hct MCV MCH RDW Plt Count Lymph % (Auto) Isabella % (Auto) Eos % (Auto) Seg Neutrophils % Seg Neuts % (Manual) Lymphocytes % (Manual) Seg Neutrophils # Seg Neutrophils # Man Lymphocytes # (Manual) POC ABG pH ABG pH POC ABG pCO2 POC ABG pO2 ABG pO2 ABG HCO3 ABG Base Excess ABG Hemoglobin Oxyhemoglobin Sodium Potassium Chloride Carbon Dioxide BUN Glucose POC Glucose 131 H 193 H Lactic Acid Calcium AST Alkaline Phosphatase Albumin Urine WBC (Auto) 53.0 H 01/15/17 01/15/17 01/15/17 05:26 11:49 17:47 WBC RBC Hgb Hct MCV MCH RDW Plt Count Lymph % (Auto) Isabella % (Auto) Eos % (Auto) Seg Neutrophils % Seg Neuts % (Manual) Lymphocytes % (Manual) Seg Neutrophils # Seg Neutrophils # Man Lymphocytes # (Manual) POC ABG pH ABG pH POC ABG pCO2 POC ABG pO2 ABG pO2 ABG HCO3 ABG Base Excess ABG Hemoglobin Oxyhemoglobin Sodium Potassium Chloride Carbon Dioxide BUN Glucose POC Glucose 215 H 121 H 211 H Lactic Acid Calcium AST Alkaline Phosphatase Albumin Urine WBC (Auto) 01/15/17 01/16/17 01/16/17 21:33 04:30 05:28 WBC RBC Hgb Hct MCV MCH RDW Plt Count Lymph % (Auto) Isabella % (Auto) Eos % (Auto) Seg Neutrophils % Seg Neuts % (Manual) Lymphocytes % (Manual) Seg Neutrophils # Seg Neutrophils # Man Lymphocytes # (Manual) POC ABG pH ABG pH 7.457 H POC ABG pCO2 POC ABG pO2 ABG pO2 55.1 L ABG HCO3 19.4 L ABG Base Excess -4.0 L ABG Hemoglobin 6.8 L Oxyhemoglobin 94.9 L Sodium Potassium Chloride Carbon Dioxide BUN Glucose POC Glucose 275 H 271 H Lactic Acid Calcium AST Alkaline Phosphatase Albumin Urine WBC (Auto) 01/16/17 01/16/17 01/17/17 13:45 21:39 04:10 WBC 4.4 L RBC 2.98 L Hgb 7.7 L Hct 23.3 L MCV 78 L MCH 26 L RDW 18.1 H Plt Count Lymph % (Auto) Isabella % (Auto) Eos % (Auto) Seg Neutrophils % Seg Neuts % (Manual) Lymphocytes % (Manual) Seg Neutrophils # Seg Neutrophils # Man Lymphocytes # (Manual) POC ABG pH ABG pH POC ABG pCO2 POC ABG pO2 ABG pO2 ABG HCO3 ABG Base Excess ABG Hemoglobin Oxyhemoglobin Sodium Potassium Chloride Carbon Dioxide BUN Glucose POC Glucose 236 H 258 H Lactic Acid Calcium AST Alkaline Phosphatase Albumin Urine WBC (Auto) 01/17/17 01/17/17 01/17/17 04:10 04:35 12:23 WBC RBC Hgb Hct MCV MCH RDW Plt Count Lymph % (Auto) Isabella % (Auto) Eos % (Auto) Seg Neutrophils % Seg Neuts % (Manual) Lymphocytes % (Manual) Seg Neutrophils # Seg Neutrophils # Man Lymphocytes # (Manual) POC ABG pH ABG pH POC ABG pCO2 POC ABG pO2 ABG pO2 160.3 H ABG HCO3 ABG Base Excess -2.3 L ABG Hemoglobin 7.9 L Oxyhemoglobin Sodium Potassium 3.3 L Chloride 108.7 H Carbon Dioxide 20 L BUN 8 L Glucose 202 H POC Glucose 321 H Lactic Acid Calcium 7.6 L AST Alkaline Phosphatase Albumin Urine WBC (Auto) 01/17/17 01/18/17 01/18/17 16:01 05:07 12:09 WBC RBC Hgb Hct MCV MCH RDW Plt Count Lymph % (Auto) Isabella % (Auto) Eos % (Auto) Seg Neutrophils % Seg Neuts % (Manual) Lymphocytes % (Manual) Seg Neutrophils # Seg Neutrophils # Man Lymphocytes # (Manual) POC ABG pH ABG pH POC ABG pCO2 POC ABG pO2 ABG pO2 ABG HCO3 ABG Base Excess ABG Hemoglobin Oxyhemoglobin Sodium Potassium Chloride Carbon Dioxide BUN Glucose POC Glucose 239 H 155 H 203 H Lactic Acid Calcium AST Alkaline Phosphatase Albumin Urine WBC (Auto) 01/18/17 01/18/17 01/19/17 17:54 23:43 04:28 WBC RBC Hgb Hct MCV MCH RDW Plt Count Lymph % (Auto) Isabella % (Auto) Eos % (Auto) Seg Neutrophils % Seg Neuts % (Manual) Lymphocytes % (Manual) Seg Neutrophils # Seg Neutrophils # Man Lymphocytes # (Manual) POC ABG pH ABG pH POC ABG pCO2 POC ABG pO2 ABG pO2 ABG HCO3 ABG Base Excess ABG Hemoglobin Oxyhemoglobin Sodium Potassium Chloride Carbon Dioxide BUN Glucose POC Glucose 132 H 125 H 182 H Lactic Acid Calcium AST Alkaline Phosphatase Albumin Urine WBC (Auto) 01/19/17 01/19/17 01/20/17 12:11 17:23 00:12 WBC RBC Hgb Hct MCV MCH RDW Plt Count Lymph % (Auto) Isabella % (Auto) Eos % (Auto) Seg Neutrophils % Seg Neuts % (Manual) Lymphocytes % (Manual) Seg Neutrophils # Seg Neutrophils # Man Lymphocytes # (Manual) POC ABG pH ABG pH POC ABG pCO2 POC ABG pO2 ABG pO2 ABG HCO3 ABG Base Excess ABG Hemoglobin Oxyhemoglobin Sodium Potassium Chloride Carbon Dioxide BUN Glucose POC Glucose 153 H 66 L 139 H Lactic Acid Calcium AST Alkaline Phosphatase Albumin Urine WBC (Auto) 01/20/17 01/20/17 01/20/17 05:44 11:48 17:42 WBC RBC Hgb Hct MCV MCH RDW Plt Count Lymph % (Auto) Isabella % (Auto) Eos % (Auto) Seg Neutrophils % Seg Neuts % (Manual) Lymphocytes % (Manual) Seg Neutrophils # Seg Neutrophils # Man Lymphocytes # (Manual) POC ABG pH ABG pH POC ABG pCO2 POC ABG pO2 ABG pO2 ABG HCO3 ABG Base Excess ABG Hemoglobin Oxyhemoglobin Sodium Potassium Chloride Carbon Dioxide BUN Glucose POC Glucose 176 H 218 H 132 H Lactic Acid Calcium AST Alkaline Phosphatase Albumin Urine WBC (Auto) 01/20/17 01/21/17 01/21/17 23:43 05:34 11:17 WBC RBC Hgb Hct MCV MCH RDW Plt Count Lymph % (Auto) Isabella % (Auto) Eos % (Auto) Seg Neutrophils % Seg Neuts % (Manual) Lymphocytes % (Manual) Seg Neutrophils # Seg Neutrophils # Man Lymphocytes # (Manual) POC ABG pH ABG pH POC ABG pCO2 POC ABG pO2 ABG pO2 ABG HCO3 ABG Base Excess ABG Hemoglobin Oxyhemoglobin Sodium Potassium Chloride Carbon Dioxide BUN Glucose POC Glucose 178 H 106 H 213 H Lactic Acid Calcium AST Alkaline Phosphatase Albumin Urine WBC (Auto) 01/21/17 01/22/17 01/22/17 23:37 04:00 04:00 WBC RBC 3.26 L Hgb 8.3 L Hct 25.5 L MCV 78 L MCH 25 L RDW 17.9 H Plt Count Lymph % (Auto) Isabella % (Auto) 7.9 H Eos % (Auto) 6.2 H Seg Neutrophils % Seg Neuts % (Manual) Lymphocytes % (Manual) Seg Neutrophils # Seg Neutrophils # Man Lymphocytes # (Manual) POC ABG pH ABG pH POC ABG pCO2 POC ABG pO2 ABG pO2 ABG HCO3 ABG Base Excess ABG Hemoglobin Oxyhemoglobin Sodium Potassium Chloride 95.5 L Carbon Dioxide 31 H D BUN Glucose 134 H POC Glucose 140 H Lactic Acid Calcium AST 44 H Alkaline Phosphatase 379 H Albumin 2.7 L Urine WBC (Auto) 01/22/17 01/22/17 01/22/17 04:58 12:12 18:12 WBC RBC Hgb Hct MCV MCH RDW Plt Count Lymph % (Auto) Isabella % (Auto) Eos % (Auto) Seg Neutrophils % Seg Neuts % (Manual) Lymphocytes % (Manual) Seg Neutrophils # Seg Neutrophils # Man Lymphocytes # (Manual) POC ABG pH ABG pH POC ABG pCO2 POC ABG pO2 ABG pO2 ABG HCO3 ABG Base Excess ABG Hemoglobin Oxyhemoglobin Sodium Potassium Chloride Carbon Dioxide BUN Glucose POC Glucose 146 H 255 H 182 H Lactic Acid Calcium AST Alkaline Phosphatase Albumin Urine WBC (Auto) 01/22/17 01/23/17 01/23/17 23:39 04:43 12:12 WBC RBC Hgb Hct MCV MCH RDW Plt Count Lymph % (Auto) Isabella % (Auto) Eos % (Auto) Seg Neutrophils % Seg Neuts % (Manual) Lymphocytes % (Manual) Seg Neutrophils # Seg Neutrophils # Man Lymphocytes # (Manual) POC ABG pH ABG pH POC ABG pCO2 POC ABG pO2 ABG pO2 ABG HCO3 ABG Base Excess ABG Hemoglobin Oxyhemoglobin Sodium Potassium Chloride Carbon Dioxide BUN Glucose POC Glucose 134 H 218 H 128 H Lactic Acid Calcium AST Alkaline Phosphatase Albumin Urine WBC (Auto) 01/23/17 01/24/17 01/24/17 17:36 00:08 05:16 WBC RBC Hgb Hct MCV MCH RDW Plt Count Lymph % (Auto) Isabella % (Auto) Eos % (Auto) Seg Neutrophils % Seg Neuts % (Manual) Lymphocytes % (Manual) Seg Neutrophils # Seg Neutrophils # Man Lymphocytes # (Manual) POC ABG pH ABG pH POC ABG pCO2 POC ABG pO2 ABG pO2 ABG HCO3 ABG Base Excess ABG Hemoglobin Oxyhemoglobin Sodium Potassium Chloride Carbon Dioxide BUN Glucose POC Glucose 156 H 129 H 169 H Lactic Acid Calcium AST Alkaline Phosphatase Albumin Urine WBC (Auto) 01/24/17 01/24/17 01/24/17 11:40 17:43 23:23 WBC RBC Hgb Hct MCV MCH RDW Plt Count Lymph % (Auto) Isabella % (Auto) Eos % (Auto) Seg Neutrophils % Seg Neuts % (Manual) Lymphocytes % (Manual) Seg Neutrophils # Seg Neutrophils # Man Lymphocytes # (Manual) POC ABG pH ABG pH POC ABG pCO2 POC ABG pO2 ABG pO2 ABG HCO3 ABG Base Excess ABG Hemoglobin Oxyhemoglobin Sodium Potassium Chloride Carbon Dioxide BUN Glucose POC Glucose 187 H 215 H 222 H Lactic Acid Calcium AST Alkaline Phosphatase Albumin Urine WBC (Auto) 01/25/17 01/25/17 01/25/17 04:56 11:52 17:37 WBC RBC Hgb Hct MCV MCH RDW Plt Count Lymph % (Auto) Isabella % (Auto) Eos % (Auto) Seg Neutrophils % Seg Neuts % (Manual) Lymphocytes % (Manual) Seg Neutrophils # Seg Neutrophils # Man Lymphocytes # (Manual) POC ABG pH ABG pH POC ABG pCO2 POC ABG pO2 ABG pO2 ABG HCO3 ABG Base Excess ABG Hemoglobin Oxyhemoglobin Sodium Potassium Chloride Carbon Dioxide BUN Glucose POC Glucose 210 H 284 H 218 H Lactic Acid Calcium AST Alkaline Phosphatase Albumin Urine WBC (Auto) 01/26/17 01/26/17 01/26/17 00:02 05:33 12:17 WBC RBC Hgb Hct MCV MCH RDW Plt Count Lymph % (Auto) Isabella % (Auto) Eos % (Auto) Seg Neutrophils % Seg Neuts % (Manual) Lymphocytes % (Manual) Seg Neutrophils # Seg Neutrophils # Man Lymphocytes # (Manual) POC ABG pH ABG pH POC ABG pCO2 POC ABG pO2 ABG pO2 ABG HCO3 ABG Base Excess ABG Hemoglobin Oxyhemoglobin Sodium Potassium Chloride Carbon Dioxide BUN Glucose POC Glucose 192 H 199 H 227 H Lactic Acid Calcium AST Alkaline Phosphatase Albumin Urine WBC (Auto) 01/26/17 01/26/17 01/27/17 17:50 23:57 05:31 WBC RBC Hgb Hct MCV MCH RDW Plt Count Lymph % (Auto) Isabella % (Auto) Eos % (Auto) Seg Neutrophils % Seg Neuts % (Manual) Lymphocytes % (Manual) Seg Neutrophils # Seg Neutrophils # Man Lymphocytes # (Manual) POC ABG pH ABG pH POC ABG pCO2 POC ABG pO2 ABG pO2 ABG HCO3 ABG Base Excess ABG Hemoglobin Oxyhemoglobin Sodium Potassium Chloride Carbon Dioxide BUN Glucose POC Glucose 229 H 186 H 285 H Lactic Acid Calcium AST Alkaline Phosphatase Albumin Urine WBC (Auto) 01/27/17 01/27/17 01/27/17 11:42 17:47 23:58 WBC RBC Hgb Hct MCV MCH RDW Plt Count Lymph % (Auto) Isabella % (Auto) Eos % (Auto) Seg Neutrophils % Seg Neuts % (Manual) Lymphocytes % (Manual) Seg Neutrophils # Seg Neutrophils # Man Lymphocytes # (Manual) POC ABG pH ABG pH POC ABG pCO2 POC ABG pO2 ABG pO2 ABG HCO3 ABG Base Excess ABG Hemoglobin Oxyhemoglobin Sodium Potassium Chloride Carbon Dioxide BUN Glucose POC Glucose 260 H 329 H 225 H Lactic Acid Calcium AST Alkaline Phosphatase Albumin Urine WBC (Auto) 01/27/17 01/27/17 01/28/17 Unknown Unknown 03:44 WBC 12.1 H RBC 3.28 L 3.14 L Hgb 8.5 L 8.2 L Hct 25.5 L 24.1 L MCV 78 L 77 L MCH 26 L 26 L RDW 16.8 H 16.9 H Plt Count 601 H 567 H Lymph % (Auto) Isabella % (Auto) Eos % (Auto) Seg Neutrophils % Seg Neuts % (Manual) Lymphocytes % (Manual) Seg Neutrophils # Seg Neutrophils # Man Lymphocytes # (Manual) POC ABG pH ABG pH POC ABG pCO2 POC ABG pO2 ABG pO2 ABG HCO3 ABG Base Excess ABG Hemoglobin Oxyhemoglobin Sodium 128 L Potassium 5.4 H Chloride 87.5 L Carbon Dioxide BUN 44 H Glucose 250 H POC Glucose Lactic Acid Calcium AST Alkaline Phosphatase Albumin Urine WBC (Auto) 01/28/17 01/28/17 01/28/17 03:44 11:43 16:47 WBC RBC Hgb Hct MCV MCH RDW Plt Count Lymph % (Auto) Isabella % (Auto) Eos % (Auto) Seg Neutrophils % Seg Neuts % (Manual) Lymphocytes % (Manual) Seg Neutrophils # Seg Neutrophils # Man Lymphocytes # (Manual) POC ABG pH ABG pH POC ABG pCO2 POC ABG pO2 ABG pO2 ABG HCO3 ABG Base Excess ABG Hemoglobin Oxyhemoglobin Sodium Potassium Chloride Carbon Dioxide BUN 42 H Glucose 128 H POC Glucose 351 H 249 H Lactic Acid Calcium AST Alkaline Phosphatase Albumin Urine WBC (Auto) 01/28/17 01/29/17 01/29/17 17:52 05:25 05:25 WBC 13.6 H RBC 3.25 L Hgb 8.3 L Hct 25.1 L MCV 77 L MCH 26 L RDW 16.8 H Plt Count 514 H Lymph % (Auto) Isabella % (Auto) Eos % (Auto) Seg Neutrophils % Seg Neuts % (Manual) Lymphocytes % (Manual) Seg Neutrophils # Seg Neutrophils # Man Lymphocytes # (Manual) POC ABG pH ABG pH POC ABG pCO2 POC ABG pO2 ABG pO2 ABG HCO3 ABG Base Excess ABG Hemoglobin Oxyhemoglobin Sodium Potassium Chloride 97.8 L Carbon Dioxide BUN 34 H Glucose 222 H POC Glucose Lactic Acid Calcium AST Alkaline Phosphatase Albumin Urine WBC (Auto) > 182.0 H 01/29/17 09:32 WBC RBC Hgb Hct MCV MCH RDW Plt Count Lymph % (Auto) Isabella % (Auto) Eos % (Auto) Seg Neutrophils % Seg Neuts % (Manual) Lymphocytes % (Manual) Seg Neutrophils # Seg Neutrophils # Man Lymphocytes # (Manual) POC ABG pH ABG pH POC ABG pCO2 POC ABG pO2 ABG pO2 ABG HCO3 ABG Base Excess ABG Hemoglobin Oxyhemoglobin Sodium Potassium Chloride Carbon Dioxide BUN Glucose POC Glucose Lactic Acid 2.50 H* Calcium AST Alkaline Phosphatase Albumin Urine WBC (Auto) Chest x-ray: image reviewed (on vent ac)
[2017-01-29] MEDS: PEPCID PO SCH ×2 (11:21→21:53)
[2017-01-29] MEDS: HEPARIN SUB-Q SCH ×2 (11:21→21:57)
[2017-01-29] MEDS ORDERED: NACL 0.9% 500 ML 500 ML IV ONE (12:00)
[2017-01-29] MEDS: NORMODYNE PO SCH ×2 (12:20→21:53)
[2017-01-29] MEDS: LEVEMIR (NF) SUB-Q SCH (12:20)
[2017-01-29] MEDS: VANCOMYCIN 750 MG in NACL 0.9% 250ML 250 ML IV SCH (15:29)
[2017-01-30] MEDS: NOVOLOG SUB-Q SCH ×5 (00:40→23:48)
[2017-01-30] MEDS: VANCOMYCIN 750 MG in NACL 0.9% 250ML 250 ML IV SCH ×2 (01:22→18:04)
[2017-01-30 05:41] LABS: Hematocrit 23.9 % (35.5-45.6); Hemoglobin 7.9 gm/dl (11.8-15.2); Mean Corpuscular HGB Conc 33 % (32-34); Mean Corpuscular Volume 77 fl (84-94); Platelet Count 569 K/mm3 (140-440); Red Blood Count 3.09 M/mm3 (3.65-5.03); Red Cell Distribution Width 16.9 % (13.2-15.2)
[2017-01-30 05:53] LABS: Mean Corpuscular Hemoglobin 26 pg (28-32)
[2017-01-30 06:06] LABS: BUN/Creatinine Ratio 30; Blood Urea Nitrogen 24 mg/dL (9-20); Hemolysis Index 0
[2017-01-30] MEDS: ZOSYN/NS 4.5GM/100ML 4.5 GM/100 ML VIAL IV SCH ×3 (06:50→21:00)
[2017-01-30] MEDS: SYNTHROID PO SCH (06:50)
[2017-01-30] MEDS: NACL 0.9% 1000 ML 1,000 ML IV SCH ×2 (08:52→21:26)
--- NOTE | 2017-01-30 09:05 | Progress Note ---
Assessment and Plan Assessment and plan: Hypoglycemic brain injury. patient was found hypoglycemic. He is now in vegetative state. Neurology following. Persistent vegetative state. Metabolic encephalopathy due to hypoglycemia Hypoglycemia/hypothermia, resolved Acute respiratory failure. He has been on mechanical ventilator greater than 96 hours Hyponatremia. Now resolved. Sodium level 142 Hypothyroidism Diabetes mellitus type 2. Check fingerstick glucose q 6h. Blood glucose was elevated. Yesterday increased Levemir dose to 8 Units subcut Qam. Hypertension. BP stable Leukocytosis due to UTI. To r/o sepsis Fever,recurrent with temperature of 103.1 yesterday.. Obtain Blood cultures x 2 , Urinalysis shows UTI. Started on Zosyn and Vancomycin., Urine culture To r/o sepsis Patient is DNR- awaiting hospice placement, needs guardianship from the state to give consent, as has no family to give consent History Interval history: Patient found unresponsive, diagnosed with hypoglycemia with brain injury, Still unresponsive, Still having recurrent fever, Hospitalist Physical - Physical exam Narrative exam: Gen Appearance: Not in acute distress, malnourished HEENT: normocephalic, atraumatic Neck: supple, no JVD Lungs: clear to auscultation bilaterally, no crackles or wheezes Heart: S1 and S2 regular, no murmurs, rubs or gallop Abdomen: Soft , non tender, non distended, normal bowel sounds Extremity: No edema, clubbing or cyanosis Neuro : Intubated, Unresponsive, vegetative state - Constitutional Vitals: Temp Pulse Resp BP Pulse Ox 99.1 F 74 20 167/68 100 01/30/17 07:53 01/30/17 08:52 01/30/17 08:52 01/30/17 08:52 01/30/17 08:52 General appearance: Present: severe distress Results - Labs CBC & Chem 7: 01/30/17 05:31 01/30/17 05:31 Labs: Laboratory Last Values WBC 15.2 K/mm3 (4.5-11.0) H 01/30/17 05:31 RBC 3.09 M/mm3 (3.65-5.03) L 01/30/17 05:31 Hgb 7.9 gm/dl (11.8-15.2) L 01/30/17 05:31 Hct 23.9 % (35.5-45.6) L 01/30/17 05:31 MCV 77 fl (84-94) L 01/30/17 05:31 MCH 26 pg (28-32) L 01/30/17 05:31 MCHC 33 % (32-34) 01/30/17 05:31 RDW 16.9 % (13.2-15.2) H 01/30/17 05:31 Plt Count 569 K/mm3 (140-440) H 01/30/17 05:31 Lymph % (Auto) 34.4 % (13.4-35.0) 01/22/17 04:00 [place] % (Auto) 7.9 % (0.0-7.3) H 01/22/17 04:00 Eos % (Auto) 6.2 % (0.0-4.3) H 01/22/17 04:00 Baso % (Auto) 1.1 % (0.0-1.8) 01/22/17 04:00 Lymph # 1.8 K/mm3 (1.2-5.4) 01/22/17 04:00 [place] # 0.4 K/mm3 (0.0-0.8) 01/22/17 04:00 Eos # 0.3 K/mm3 (0.0-0.4) 01/22/17 04:00 Baso # 0.1 K/mm3 (0.0-0.1) 01/22/17 04:00 Add Manual Diff Complete 01/10/17 04:30 Total Counted 100 01/10/17 04:30 Seg Neutrophils % 50.4 % (40.0-70.0) 01/22/17 04:00 Seg Neuts % (Manual) 88.0 % (40.0-70.0) H 01/10/17 04:30 Band Neutrophils % 7.0 % 01/10/17 04:30 Lymphocytes % (Manual) 4.0 % (13.4-35.0) L 01/10/17 04:30 Reactive Lymphs % (Man) 0 % 01/10/17 04:30 Monocytes % (Manual) 1.0 % (0.0-7.3) 01/10/17 04:30 Eosinophils % (Manual) 0 % (0.0-4.3) 01/10/17 04:30 Basophils % (Manual) 0 % (0.0-1.8) 01/10/17 04:30 Metamyelocytes % 0 % 01/10/17 04:30 Myelocytes % 0 % 01/10/17 04:30 Promyelocytes % 0 % 01/10/17 04:30 Blast Cells % 0 % 01/10/17 04:30 Nucleated RBC % Not Reportable 01/10/17 04:30 Seg Neutrophils # 2.7 K/mm3 (1.8-7.7) 01/22/17 04:00 Seg Neutrophils # Man 21.2 K/mm3 (1.8-7.7) H 01/10/17 04:30 Band Neutrophils # 1.7 K/mm3 01/10/17 04:30 Lymphocytes # (Manual) 1.0 K/mm3 (1.2-5.4) L 01/10/17 04:30 Abs React Lymphs (Man) 0.0 K/mm3 01/10/17 04:30 Monocytes # (Manual) 0.2 K/mm3 (0.0-0.8) 01/10/17 04:30 Eosinophils # (Manual) 0.0 K/mm3 (0.0-0.4) 01/10/17 04:30 Basophils # (Manual) 0.0 K/mm3 (0.0-0.1) 01/10/17 04:30 Metamyelocytes # 0.0 K/mm3 01/10/17 04:30 Myelocytes # 0.0 K/mm3 01/10/17 04:30 Promyelocytes # 0.0 K/mm3 01/10/17 04:30 Blast Cells # 0.0 K/mm3 01/10/17 04:30 WBC Morphology Not Reportable 01/10/17 04:30 Hypersegmented Neuts Not Reportable 01/10/17 04:30 Hyposegmented Neuts Not Reportable 01/10/17 04:30 Hypogranular Neuts Not Reportable 01/10/17 04:30 Smudge Cells Not Reportable 01/10/17 04:30 Toxic Granulation Not Reportable 01/10/17 04:30 Toxic Vacuolation Not Reportable 01/10/17 04:30 Dohle Bodies Not Reportable 01/10/17 04:30 Pelger-Huet Anomaly Not Reportable 01/10/17 04:30 [place] Rods Not Reportable 01/10/17 04:30 Platelet Estimate Consistent w auto 01/10/17 04:30 Clumped Platelets Not Reportable 01/10/17 04:30 Plt Clumps, EDTA Not Reportable 01/10/17 04:30 Large Platelets Not Reportable 01/10/17 04:30 Giant Platelets Not Reportable 01/10/17 04:30 Platelet Satelliting Not Reportable 01/10/17 04:30 Plt Morphology Comment Not Reportable 01/10/17 04:30 RBC Morphology Not Reportable 01/10/17 04:30 Dimorphic RBCs Not Reportable 01/10/17 04:30 Polychromasia Not Reportable 01/10/17 04:30 Hypochromasia 1+ 01/10/17 04:30 Poikilocytosis Not Reportable 01/10/17 04:30 Anisocytosis Not Reportable 01/10/17 04:30 Microcytosis Not Reportable 01/10/17 04:30 Macrocytosis Not Reportable 01/10/17 04:30 Spherocytes Not Reportable 01/10/17 04:30 Pappenheimer Bodies Not Reportable 01/10/17 04:30 Sickle Cells Not Reportable 01/10/17 04:30 Target Cells Not Reportable 01/10/17 04:30 Tear Drop Cells Not Reportable 01/10/17 04:30 Ovalocytes Not Reportable 01/10/17 04:30 Helmet Cells Not Reportable 01/10/17 04:30 Jarrett-Tetherow Bodies Not Reportable 01/10/17 04:30 [place] Rings Not Reportable 01/10/17 04:30 Baskin Cells Not Reportable 01/10/17 04:30 Bite Cells Not Reportable 01/10/17 04:30 Crenated Cell Not Reportable 01/10/17 04:30 Elliptocytes Not Reportable 01/10/17 04:30 Acanthocytes (Spur) Not Reportable 01/10/17 04:30 Rouleaux Not Reportable 01/10/17 04:30 Hemoglobin C Crystals Not Reportable 01/10/17 04:30 Schistocytes Not Reportable 01/10/17 04:30 Malaria parasites Not Reportable 01/10/17 04:30 Ykle Bodies Not Reportable 01/10/17 04:30 Hem Pathologist Commnt No 01/10/17 04:30 PT 14.1 Sec. (12.2-14.9) 01/17/17 04:10 INR 1.04 (0.87-1.13) 01/17/17 04:10 APTT 36.6 Sec. (24.2-36.6) 01/17/17 04:10 POC ABG pH 7.485 (7.35-7.45) H 01/13/17 04:26 ABG pH 7.420 pH Units (7.350-7.450) 01/17/17 04:35 POC ABG pCO2 25.4 (35-45) L 01/13/17 04:26 ABG pCO2 34.5 mm Hg 01/17/17 04:35 POC ABG pO2 73 (80-105) L 01/13/17 04:26 ABG pO2 160.3 mm Hg (80.0-90.0) H 01/17/17 04:35 POC ABG HCO3 19.1 01/13/17 04:26 ABG HCO3 21.9 mmol/L (20.0-26.0) 01/17/17 04:35 POC ABG Total CO2 20 01/13/17 04:26 POC ABG O2 Sat 96 01/13/17 04:26 ABG O2 Saturation 99.0 % (95.0-99.0) 01/17/17 04:35 ABG O2 Content 11.1 (0.0-44) 01/17/17 04:35 POC ABG Base Excess -4 01/13/17 04:26 ABG Base Excess -2.3 mmol/L (-2.0-3.0) L 01/17/17 04:35 ABG Hemoglobin 7.9 gm/dl (14.0-18.0) L 01/17/17 04:35 ABG Carboxyhemoglobin 1.5 % (0.0-5.0) 01/17/17 04:35 ABG Methemoglobin 0.5 % (0.0-1.5) 01/17/17 04:35 VBG pH 7.284 (7.320-7.420) L 01/09/17 10:16 Oxyhemoglobin 97.1 % (95.0-99.0) 01/17/17 04:35 FiO2 30 % 01/17/17 04:35 Sodium 142 mmol/L (137-145) 01/30/17 05:31 Potassium 3.8 mmol/L (3.6-5.0) 01/30/17 05:31 Chloride 105.3 mmol/L (98-107) 01/30/17 05:31 Carbon Dioxide 23 mmol/L (22-30) 01/30/17 05:31 Anion Gap 18 mmol/L 01/30/17 05:31 BUN 24 mg/dL (9-20) H 01/30/17 05:31 Creatinine 0.8 mg/dL (0.8-1.5) 01/30/17 05:31 Estimated GFR > 60 ml/min 01/30/17 05:31 BUN/Creatinine Ratio 30 % 01/30/17 05:31 Glucose 235 mg/dL (75-100) H 01/30/17 05:31 POC Glucose 243 (70-105) H 01/30/17 05:34 Lactic Acid 2.50 mmol/L (0.7-2.0) H* 01/29/17 09:32 Calcium 9.0 mg/dL (8.4-10.2) 01/30/17 05:31 Phosphorus 3.60 mg/dL (2.5-4.5) 01/22/17 04:00 Magnesium 2.10 mg/dL (1.7-2.3) 01/22/17 04:00 Total Bilirubin 0.30 mg/dL (0.1-1.2) 01/22/17 04:00 AST 44 units/L (5-40) H 01/22/17 04:00 ALT 23 units/L (7-56) 01/22/17 04:00 Alkaline Phosphatase 379 units/L (35-129) H 01/22/17 04:00 Ammonia 35.0 umol/L (25-60) 01/09/17 10:16 Total Creatine Kinase 135 units/L (55-170) 01/09/17 10:16 CK-MB (CK-2) 7.1 ng/mL (0.0-4.0) H 01/09/17 10:16 CK-MB (CK-2) Rel Index 5.2 (0-4) H 01/09/17 10:16 Troponin T < 0.010 ng/mL (0.00-0.029) 01/09/17 10: NT-Pro-B Natriuret Pep 602.9 pg/mL (0-900) 01/09/17 10:16 Total Protein 7.9 g/dL (6.3-8.2) 01/22/17 04:00 Albumin 2.7 g/dL (3.9-5) L 01/22/17 04:00 Albumin/Globulin Ratio 0.5 % 01/22/17 04:00 TSH 52.800 mlU/mL (0.270-4.200) H 01/09/17 10:16 Free T4 0.78 ng/dL (0.76-1.46) 01/09/17 10:16 Total Cortisol 54.8 mcg/dL () 01/09/17 16:19 Urine Color Yellow (Yellow) 01/28/17 17:52 Urine Turbidity Clear (Clear) 01/28/17 17:52 Urine pH 6.0 (5.0-7.0) 01/28/17 17:52 Ur Specific [place] 1.016 (1.003-1.030) 01/28/17 17:52 Urine Protein 100 mg/dl mg/dL (Negative) 01/28/17 17:52 Urine Glucose (UA) >=500 mg/dL (Negative) 01/28/17 17:52 Urine Ketones Neg mg/dL (Negative) 01/28/17 17:52 Urine Blood Sm (Negative) 01/28/17 17:52 Urine Nitrite Neg (Negative) 01/28/17 17:52 Urine Bilirubin Neg (Negative) 01/28/17 17:52 Urine Urobilinogen < 2.0 mg/dL (<2.0) 01/28/17 17:52 Ur Leukocyte Esterase Lg (Negative) 01/28/17 17:52 Urine WBC (Auto) > 182.0 /HPF (0.0-6.0) H 01/28/17 17:52 Urine RBC (Auto) 113.0 /HPF (0.0-6.0) 01/28/17 17:52 Urine Bacteria (Auto) 2+ /HPF (Negative) 01/28/17 17:52 Urine WBC Clumps 3+ /HPF 01/28/17 17:52 Urine Mucus Few /HPF 01/14/17 14:07 Urine Yeast (Budding) 3+ /HPF 01/14/17 14:07 Salicylates < 0.3 mg/dL (2.8-20.0) L 01/09/17 10:16 Urine Opiates Screen Presumptive negative 01/09/17 10:23 Urine Methadone Screen Presumptive negative 01/09/17 10:23 Acetaminophen < 15.0 ug/mL (10.0-30.0) 01/09/17 10:16 Ur Barbiturates Screen Presumptive negative 01/09/17 10:23 Ur Phencyclidine Scrn Presumptive negative 01/09/17 10:23 Ur Amphetamines Screen Presumptive negative 01/09/17 10:23 U Benzodiazepines Scrn Presumptive negative 01/09/17 10:23 Urine Cocaine Screen Presumptive negative 01/09/17 10:23 U Marijuana (THC) Screen Presumptive negative 01/09/17 10:23 Drugs of Abuse Note Disclamer 01/09/17 10:23 Plasma/Serum Alcohol < 0.01 gm% (0-0.07) 01/09/17 10:16
[2017-01-30] MEDS: PEPCID PO SCH ×2 (09:20→21:00)
[2017-01-30] MEDS: LEVEMIR (NF) SUB-Q SCH (09:21)
[2017-01-30] MEDS: NORMODYNE PO SCH ×2 (09:21→21:00)
[2017-01-30] MEDS: HEPARIN SUB-Q SCH ×2 (09:21→21:01)
--- NOTE | 2017-01-30 11:16 | Progress Note ---
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 (6) UTI (urinary tract infection) Current Visit: Yes Status: Acute Qualifiers: Urinary tract infection type: U Hematuria presence: H Indwelling urinary catheter type: I Encounter type: E (7) Pyelonephritis Current Visit: No Status: Acute (8) Renal insufficiency Current Visit: No Status: Acute (9) SIRS (systemic inflammatory response syndrome) Current Visit: No Status: Acute Subjective Principal diagnosis: Acute respiratory failure,encephalopathy Interval history: on vent on cpap Objective Vital Signs - 12hr 01/29/17 01/30/17 01/30/17 23:22 00:00 00:01 Temperature 99.8 F H Pulse Rate 79 73 Pulse Rate [ From Monitor] Respiratory 17 Rate Blood Pressure 145/65 112/54 O2 Sat by Pulse 99 99 Oximetry 01/30/17 01/30/17 01/30/17 00:03 00:08 01:00 Temperature Pulse Rate 74 71 Pulse Rate [ 72 From Monitor] Respiratory 18 15 20 Rate Blood Pressure 112/54 114/61 O2 Sat by Pulse 100 100 100 Oximetry 01/30/17 01/30/17 01/30/17 02:00 03:00 03:01 Temperature Pulse Rate 70 67 66 Pulse Rate [ From Monitor] Respiratory 21 16 Rate Blood Pressure 128/63 107/54 107/54 O2 Sat by Pulse 97 97 100 Oximetry 01/30/17 01/30/17 01/30/17 04:00 05:00 06:01 Temperature 99.6 F Pulse Rate 68 73 72 Pulse Rate [ From Monitor] Respiratory 15 18 18 Rate Blood Pressure 124/63 131/65 143/62 O2 Sat by Pulse 97 98 Oximetry 01/30/17 01/30/17 01/30/17 07:00 07:20 07:53 Temperature 99.1 F Pulse Rate 73 Pulse Rate [ 79 From Monitor] Respiratory 18 18 Rate Blood Pressure 158/64 O2 Sat by Pulse 100 Oximetry 01/30/17 01/30/17 01/30/17 08:00 08:10 08:39 Temperature Pulse Rate 74 74 Pulse Rate [ From Monitor] Respiratory 21 18 Rate Blood Pressure 167/68 167/68 O2 Sat by Pulse 100 100 100 Oximetry 01/30/17 01/30/17 01/30/17 08:52 09:00 09:21 Temperature Pulse Rate 74 75 73 Pulse Rate [ From Monitor] Respiratory 20 20 Rate Blood Pressure 167/68 141/70 141/70 O2 Sat by Pulse 100 100 Oximetry 01/30/17 01/30/17 10:00 11:01 Temperature Pulse Rate 70 70 Pulse Rate [ From Monitor] Respiratory 18 20 Rate Blood Pressure 131/66 137/65 O2 Sat by Pulse 100 100 Oximetry Constitutional: no acute distress, comatose, other (orally intubated, on vent) Eyes: non-icteric ENT: oropharynx moist Neck: supple, no JVD Effort: normal Ascultation: Bilateral: clear, diminished breath sounds Cardiovascular: regular rate and rhythm Gastrointestinal: normoactive bowel sounds, soft, non-tender, non-distended Integumentary: normal Extremities: no cyanosis, no edema, pink and warm Neurologic: non-focal exam, pupils equal and round, other (no response to pain) Psychiatric: other (unable to obtain) CBC and BMP: 01/30/17 05:31 01/30/17 05:31 ABG, PT/INR, D-dimer: ABG POC ABG pH 7.485 (7.35-7.45) H 01/13/17 04:26 ABG pH 7.420 pH Units (7.350-7.450) 01/17/17 04:35 POC ABG pCO2 25.4 (35-45) L 01/13/17 04:26 ABG pCO2 34.5 mm Hg 01/17/17 04:35 POC ABG pO2 73 (80-105) L 01/13/17 04:26 ABG pO2 160.3 mm Hg (80.0-90.0) H 01/17/17 04:35 POC ABG HCO3 19.1 01/13/17 04:26 POC ABG Total CO2 20 01/13/17 04:26 POC ABG O2 Sat 96 01/13/17 04:26 ABG O2 Saturation 99.0 % (95.0-99.0) 01/17/17 04:35 PT/INR, D-dimer PT 14.1 Sec. (12.2-14.9) 01/17/17 04:10 INR 1.04 (0.87-1.13) 01/17/17 04:10 Abnormal lab findings: Abnormal Labs 01/09/17 01/09/17 01/09/17 12:49 13:13 14:21 WBC RBC Hgb Hct MCV MCH RDW Plt Count Lymph % (Auto) [place] % (Auto) Eos % (Auto) Seg Neutrophils % Seg Neuts % (Manual) Lymphocytes % (Manual) Seg Neutrophils # Seg Neutrophils # Man Lymphocytes # (Manual) POC ABG pH ABG pH POC ABG pCO2 POC ABG pO2 ABG pO2 ABG HCO3 ABG Base Excess ABG Hemoglobin Oxyhemoglobin Sodium Potassium Chloride Carbon Dioxide BUN Glucose POC Glucose < 40 L 128 H 65 L Lactic Acid Calcium AST Alkaline Phosphatase Albumin Urine WBC (Auto) 01/09/17 01/09/17 01/09/17 15:09 16:28 17:14 WBC RBC Hgb Hct MCV MCH RDW Plt Count Lymph % (Auto) [place] % (Auto) Eos % (Auto) Seg Neutrophils % Seg Neuts % (Manual) Lymphocytes % (Manual) Seg Neutrophils # Seg Neutrophils # Man Lymphocytes # (Manual) POC ABG pH ABG pH POC ABG pCO2 POC ABG pO2 ABG pO2 ABG HCO3 ABG Base Excess ABG Hemoglobin Oxyhemoglobin Sodium Potassium Chloride Carbon Dioxide BUN Glucose POC Glucose 120 H 44 L 112 H Lactic Acid Calcium AST Alkaline Phosphatase Albumin Urine WBC (Auto) 01/10/17 01/10/17 01/10/17 04:30 04:30 05:41 WBC 24.1 H RBC 3.38 L Hgb 8.5 L Hct 26.0 L MCV 77 L MCH 25 L RDW 17.9 H Plt Count 474 H Lymph % (Auto) [place] % (Auto) Eos % (Auto) Seg Neutrophils % Seg Neuts % (Manual) 88.0 H Lymphocytes % (Manual) 4.0 L Seg Neutrophils # Seg Neutrophils # Man 21.2 H Lymphocytes # (Manual) 1.0 L POC ABG pH ABG pH POC ABG pCO2 POC ABG pO2 ABG pO2 ABG HCO3 ABG Base Excess ABG Hemoglobin Oxyhemoglobin Sodium Potassium Chloride Carbon Dioxide 17 L BUN 27 H Glucose POC Glucose 68 L Lactic Acid Calcium 7.5 L AST Alkaline Phosphatase Albumin Urine WBC (Auto) 01/10/17 01/10/17 01/10/17 05:45 07:47 10:50 WBC RBC Hgb Hct MCV MCH RDW Plt Count Lymph % (Auto) [place] % (Auto) Eos % (Auto) Seg Neutrophils % Seg Neuts % (Manual) Lymphocytes % (Manual) Seg Neutrophils # Seg Neutrophils # Man Lymphocytes # (Manual) POC ABG pH ABG pH POC ABG pCO2 26.6 L POC ABG pO2 207 H ABG pO2 ABG HCO3 ABG Base Excess ABG Hemoglobin Oxyhemoglobin Sodium Potassium Chloride Carbon Dioxide BUN Glucose POC Glucose 148 H 165 H Lactic Acid Calcium AST Alkaline Phosphatase Albumin Urine WBC (Auto) 01/10/17 01/10/17 01/10/17 13:41 20:20 21:39 WBC RBC Hgb Hct MCV MCH RDW Plt Count Lymph % (Auto) [place] % (Auto) Eos % (Auto) Seg Neutrophils % Seg Neuts % (Manual) Lymphocytes % (Manual) Seg Neutrophils # Seg Neutrophils # Man Lymphocytes # (Manual) POC ABG pH ABG pH POC ABG pCO2 POC ABG pO2 ABG pO2 ABG HCO3 ABG Base Excess ABG Hemoglobin Oxyhemoglobin Sodium Potassium Chloride Carbon Dioxide BUN Glucose POC Glucose 114 H 150 H 175 H Lactic Acid Calcium AST Alkaline Phosphatase Albumin Urine WBC (Auto) 01/10/17 01/11/17 01/11/17 23:24 00:19 04:06 WBC RBC Hgb Hct MCV MCH RDW Plt Count Lymph % (Auto) [place] % (Auto) Eos % (Auto) Seg Neutrophils % Seg Neuts % (Manual) Lymphocytes % (Manual) Seg Neutrophils # Seg Neutrophils # Man Lymphocytes # (Manual) POC ABG pH 7.463 H ABG pH POC ABG pCO2 26.2 L POC ABG pO2 185 H ABG pO2 ABG HCO3 ABG Base Excess ABG Hemoglobin Oxyhemoglobin Sodium Potassium Chloride Carbon Dioxide BUN Glucose POC Glucose 155 H 163 H Lactic Acid Calcium AST Alkaline Phosphatase Albumin Urine WBC (Auto) 01/11/17 01/11/17 01/11/17 05:20 05:20 06:21 WBC 15.2 H RBC 3.40 L Hgb 8.9 L Hct 26.3 L MCV 78 L MCH 26 L RDW 18.6 H Plt Count 462 H Lymph % (Auto) 13.2 L [place] % (Auto) Eos % (Auto) Seg Neutrophils % 80.8 H Seg Neuts % (Manual) Lymphocytes % (Manual) Seg Neutrophils # 12.3 H Seg Neutrophils # Man Lymphocytes # (Manual) POC ABG pH ABG pH POC ABG pCO2 POC ABG pO2 ABG pO2 ABG HCO3 ABG Base Excess ABG Hemoglobin Oxyhemoglobin Sodium Potassium 3.4 L Chloride 111.5 H Carbon Dioxide 17 L BUN Glucose 147 H POC Glucose 139 H Lactic Acid Calcium 8.0 L AST Alkaline Phosphatase Albumin Urine WBC (Auto) 01/11/17 01/11/17 01/11/17 07:57 11:46 16:50 WBC RBC Hgb Hct MCV MCH RDW Plt Count Lymph % (Auto) [place] % (Auto) Eos % (Auto) Seg Neutrophils % Seg Neuts % (Manual) Lymphocytes % (Manual) Seg Neutrophils # Seg Neutrophils # Man Lymphocytes # (Manual) POC ABG pH ABG pH POC ABG pCO2 POC ABG pO2 ABG pO2 ABG HCO3 ABG Base Excess ABG Hemoglobin Oxyhemoglobin Sodium Potassium Chloride Carbon Dioxide BUN Glucose POC Glucose 188 H 199 H 235 H Lactic Acid Calcium AST Alkaline Phosphatase Albumin Urine WBC (Auto) 01/11/17 01/12/17 01/12/17 23:15 05:02 06:56 WBC RBC Hgb Hct MCV MCH RDW Plt Count Lymph % (Auto) [place] % (Auto) Eos % (Auto) Seg Neutrophils % Seg Neuts % (Manual) Lymphocytes % (Manual) Seg Neutrophils # Seg Neutrophils # Man Lymphocytes # (Manual) POC ABG pH ABG pH POC ABG pCO2 28.0 L POC ABG pO2 178 H ABG pO2 ABG HCO3 ABG Base Excess ABG Hemoglobin Oxyhemoglobin Sodium Potassium Chloride Carbon Dioxide BUN Glucose POC Glucose 155 H 119 H Lactic Acid Calcium AST Alkaline Phosphatase Albumin Urine WBC (Auto) 01/12/17 01/13/17 01/13/17 14:50 03:37 03:37 WBC RBC 3.61 L Hgb 9.3 L Hct 28.0 L MCV 78 L MCH 26 L RDW 18.2 H Plt Count Lymph % (Auto) [place] % (Auto) Eos % (Auto) Seg Neutrophils % Seg Neuts % (Manual) Lymphocytes % (Manual) Seg Neutrophils # Seg Neutrophils # Man Lymphocytes # (Manual) POC ABG pH ABG pH POC ABG pCO2 POC ABG pO2 ABG pO2 ABG HCO3 ABG Base Excess ABG Hemoglobin Oxyhemoglobin Sodium Potassium Chloride 112.4 H Carbon Dioxide 19 L BUN Glucose 118 H POC Glucose 164 H Lactic Acid Calcium 8.0 L AST Alkaline Phosphatase Albumin Urine WBC (Auto) 01/13/17 01/13/17 01/13/17 04:26 06:15 11:50 WBC RBC Hgb Hct MCV MCH RDW Plt Count Lymph % (Auto) [place] % (Auto) Eos % (Auto) Seg Neutrophils % Seg Neuts % (Manual) Lymphocytes % (Manual) Seg Neutrophils # Seg Neutrophils # Man Lymphocytes # (Manual) POC ABG pH 7.485 H ABG pH POC ABG pCO2 25.4 L POC ABG pO2 73 L ABG pO2 ABG HCO3 ABG Base Excess ABG Hemoglobin Oxyhemoglobin Sodium Potassium Chloride Carbon Dioxide BUN Glucose POC Glucose 116 H 171 H Lactic Acid Calcium AST Alkaline Phosphatase Albumin Urine WBC (Auto) 01/13/17 01/14/17 01/14/17 17:31 00:02 04:50 WBC RBC 3.32 L Hgb 8.5 L Hct 26.1 L MCV 79 L MCH 26 L RDW 18.2 H Plt Count Lymph % (Auto) [place] % (Auto) 9.0 H Eos % (Auto) Seg Neutrophils % Seg Neuts % (Manual) Lymphocytes % (Manual) Seg Neutrophils # Seg Neutrophils # Man Lymphocytes # (Manual) POC ABG pH ABG pH POC ABG pCO2 POC ABG pO2 ABG pO2 ABG HCO3 ABG Base Excess ABG Hemoglobin Oxyhemoglobin Sodium Potassium Chloride Carbon Dioxide BUN Glucose POC Glucose 203 H 157 H Lactic Acid Calcium AST Alkaline Phosphatase Albumin Urine WBC (Auto) 01/14/17 01/14/17 01/14/17 04:50 05:10 11:27 WBC RBC Hgb Hct MCV MCH RDW Plt Count Lymph % (Auto) [place] % (Auto) Eos % (Auto) Seg Neutrophils % Seg Neuts % (Manual) Lymphocytes % (Manual) Seg Neutrophils # Seg Neutrophils # Man Lymphocytes # (Manual) POC ABG pH ABG pH POC ABG pCO2 POC ABG pO2 ABG pO2 ABG HCO3 ABG Base Excess ABG Hemoglobin Oxyhemoglobin Sodium Potassium Chloride 112.5 H Carbon Dioxide BUN Glucose 149 H POC Glucose 176 H 147 H Lactic Acid Calcium 8.1 L AST Alkaline Phosphatase Albumin Urine WBC (Auto) 01/14/17 01/14/17 01/15/17 14:07 16:52 00:04 WBC RBC Hgb Hct MCV MCH RDW Plt Count Lymph % (Auto) [place] % (Auto) Eos % (Auto) Seg Neutrophils % Seg Neuts % (Manual) Lymphocytes % (Manual) Seg Neutrophils # Seg Neutrophils # Man Lymphocytes # (Manual) POC ABG pH ABG pH POC ABG pCO2 POC ABG pO2 ABG pO2 ABG HCO3 ABG Base Excess ABG Hemoglobin Oxyhemoglobin Sodium Potassium Chloride Carbon Dioxide BUN Glucose POC Glucose 131 H 193 H Lactic Acid Calcium AST Alkaline Phosphatase Albumin Urine WBC (Auto) 53.0 H 01/15/17 01/15/17 01/15/17 05:26 11:49 17:47 WBC RBC Hgb Hct MCV MCH RDW Plt Count Lymph % (Auto) [place] % (Auto) Eos % (Auto) Seg Neutrophils % Seg Neuts % (Manual) Lymphocytes % (Manual) Seg Neutrophils # Seg Neutrophils # Man Lymphocytes # (Manual) POC ABG pH ABG pH POC ABG pCO2 POC ABG pO2 ABG pO2 ABG HCO3 ABG Base Excess ABG Hemoglobin Oxyhemoglobin Sodium Potassium Chloride Carbon Dioxide BUN Glucose POC Glucose 215 H 121 H 211 H Lactic Acid Calcium AST Alkaline Phosphatase Albumin Urine WBC (Auto) 01/15/17 01/16/17 01/16/17 21:33 04:30 05:28 WBC RBC Hgb Hct MCV MCH RDW Plt Count Lymph % (Auto) [place] % (Auto) Eos % (Auto) Seg Neutrophils % Seg Neuts % (Manual) Lymphocytes % (Manual) Seg Neutrophils # Seg Neutrophils # Man Lymphocytes # (Manual) POC ABG pH ABG pH 7.457 H POC ABG pCO2 POC ABG pO2 ABG pO2 55.1 L ABG HCO3 19.4 L ABG Base Excess -4.0 L ABG Hemoglobin 6.8 L Oxyhemoglobin 94.9 L Sodium Potassium Chloride Carbon Dioxide BUN Glucose POC Glucose 275 H 271 H Lactic Acid Calcium AST Alkaline Phosphatase Albumin Urine WBC (Auto) 01/16/17 01/16/17 01/17/17 13:45 21:39 04:10 WBC 4.4 L RBC 2.98 L Hgb 7.7 L Hct 23.3 L MCV 78 L MCH 26 L RDW 18.1 H Plt Count Lymph % (Auto) [place] % (Auto) Eos % (Auto) Seg Neutrophils % Seg Neuts % (Manual) Lymphocytes % (Manual) Seg Neutrophils # Seg Neutrophils # Man Lymphocytes # (Manual) POC ABG pH ABG pH POC ABG pCO2 POC ABG pO2 ABG pO2 ABG HCO3 ABG Base Excess ABG Hemoglobin Oxyhemoglobin Sodium Potassium Chloride Carbon Dioxide BUN Glucose POC Glucose 236 H 258 H Lactic Acid Calcium AST Alkaline Phosphatase Albumin Urine WBC (Auto) 01/17/17 01/17/17 01/17/17 04:10 04:35 12:23 WBC RBC Hgb Hct MCV MCH RDW Plt Count Lymph % (Auto) [place] % (Auto) Eos % (Auto) Seg Neutrophils % Seg Neuts % (Manual) Lymphocytes % (Manual) Seg Neutrophils # Seg Neutrophils # Man Lymphocytes # (Manual) POC ABG pH ABG pH POC ABG pCO2 POC ABG pO2 ABG pO2 160.3 H ABG HCO3 ABG Base Excess -2.3 L ABG Hemoglobin 7.9 L Oxyhemoglobin Sodium Potassium 3.3 L Chloride 108.7 H Carbon Dioxide 20 L BUN 8 L Glucose 202 H POC Glucose 321 H Lactic Acid Calcium 7.6 L AST Alkaline Phosphatase Albumin Urine WBC (Auto) 01/17/17 01/18/17 01/18/17 16:01 05:07 12:09 WBC RBC Hgb Hct MCV MCH RDW Plt Count Lymph % (Auto) [place] % (Auto) Eos % (Auto) Seg Neutrophils % Seg Neuts % (Manual) Lymphocytes % (Manual) Seg Neutrophils # Seg Neutrophils # Man Lymphocytes # (Manual) POC ABG pH ABG pH POC ABG pCO2 POC ABG pO2 ABG pO2 ABG HCO3 ABG Base Excess ABG Hemoglobin Oxyhemoglobin Sodium Potassium Chloride Carbon Dioxide BUN Glucose POC Glucose 239 H 155 H 203 H Lactic Acid Calcium AST Alkaline Phosphatase Albumin Urine WBC (Auto) 01/18/17 01/18/17 01/19/17 17:54 23:43 04:28 WBC RBC Hgb Hct MCV MCH RDW Plt Count Lymph % (Auto) [place] % (Auto) Eos % (Auto) Seg Neutrophils % Seg Neuts % (Manual) Lymphocytes % (Manual) Seg Neutrophils # Seg Neutrophils # Man Lymphocytes # (Manual) POC ABG pH ABG pH POC ABG pCO2 POC ABG pO2 ABG pO2 ABG HCO3 ABG Base Excess ABG Hemoglobin Oxyhemoglobin Sodium Potassium Chloride Carbon Dioxide BUN Glucose POC Glucose 132 H 125 H 182 H Lactic Acid Calcium AST Alkaline Phosphatase Albumin Urine WBC (Auto) 01/19/17 01/19/17 01/20/17 12:11 17:23 00:12 WBC RBC Hgb Hct MCV MCH RDW Plt Count Lymph % (Auto) [place] % (Auto) Eos % (Auto) Seg Neutrophils % Seg Neuts % (Manual) Lymphocytes % (Manual) Seg Neutrophils # Seg Neutrophils # Man Lymphocytes # (Manual) POC ABG pH ABG pH POC ABG pCO2 POC ABG pO2 ABG pO2 ABG HCO3 ABG Base Excess ABG Hemoglobin Oxyhemoglobin Sodium Potassium Chloride Carbon Dioxide BUN Glucose POC Glucose 153 H 66 L 139 H Lactic Acid Calcium AST Alkaline Phosphatase Albumin Urine WBC (Auto) 01/20/17 01/20/17 01/20/17 05:44 11:48 17:42 WBC RBC Hgb Hct MCV MCH RDW Plt Count Lymph % (Auto) [place] % (Auto) Eos % (Auto) Seg Neutrophils % Seg Neuts % (Manual) Lymphocytes % (Manual) Seg Neutrophils # Seg Neutrophils # Man Lymphocytes # (Manual) POC ABG pH ABG pH POC ABG pCO2 POC ABG pO2 ABG pO2 ABG HCO3 ABG Base Excess ABG Hemoglobin Oxyhemoglobin Sodium Potassium Chloride Carbon Dioxide BUN Glucose POC Glucose 176 H 218 H 132 H Lactic Acid Calcium AST Alkaline Phosphatase Albumin Urine WBC (Auto) 01/20/17 01/21/17 01/21/17 23:43 05:34 11:17 WBC RBC Hgb Hct MCV MCH RDW Plt Count Lymph % (Auto) [place] % (Auto) Eos % (Auto) Seg Neutrophils % Seg Neuts % (Manual) Lymphocytes % (Manual) Seg Neutrophils # Seg Neutrophils # Man Lymphocytes # (Manual) POC ABG pH ABG pH POC ABG pCO2 POC ABG pO2 ABG pO2 ABG HCO3 ABG Base Excess ABG Hemoglobin Oxyhemoglobin Sodium Potassium Chloride Carbon Dioxide BUN Glucose POC Glucose 178 H 106 H 213 H Lactic Acid Calcium AST Alkaline Phosphatase Albumin Urine WBC (Auto) 01/21/17 01/22/17 01/22/17 23:37 04:00 04:00 WBC RBC 3.26 L Hgb 8.3 L Hct 25.5 L MCV 78 L MCH 25 L RDW 17.9 H Plt Count Lymph % (Auto) [place] % (Auto) 7.9 H Eos % (Auto) 6.2 H Seg Neutrophils % Seg Neuts % (Manual) Lymphocytes % (Manual) Seg Neutrophils # Seg Neutrophils # Man Lymphocytes # (Manual) POC ABG pH ABG pH POC ABG pCO2 POC ABG pO2 ABG pO2 ABG HCO3 ABG Base Excess ABG Hemoglobin Oxyhemoglobin Sodium Potassium Chloride 95.5 L Carbon Dioxide 31 H D BUN Glucose 134 H POC Glucose 140 H Lactic Acid Calcium AST 44 H Alkaline Phosphatase 379 H Albumin 2.7 L Urine WBC (Auto) 01/22/17 01/22/17 01/22/17 04:58 12:12 18:12 WBC RBC Hgb Hct MCV MCH RDW Plt Count Lymph % (Auto) [place] % (Auto) Eos % (Auto) Seg Neutrophils % Seg Neuts % (Manual) Lymphocytes % (Manual) Seg Neutrophils # Seg Neutrophils # Man Lymphocytes # (Manual) POC ABG pH ABG pH POC ABG pCO2 POC ABG pO2 ABG pO2 ABG HCO3 ABG Base Excess ABG Hemoglobin Oxyhemoglobin Sodium Potassium Chloride Carbon Dioxide BUN Glucose POC Glucose 146 H 255 H 182 H Lactic Acid Calcium AST Alkaline Phosphatase Albumin Urine WBC (Auto) 01/22/17 01/23/17 01/23/17 23:39 04:43 12:12 WBC RBC Hgb Hct MCV MCH RDW Plt Count Lymph % (Auto) [place] % (Auto) Eos % (Auto) Seg Neutrophils % Seg Neuts % (Manual) Lymphocytes % (Manual) Seg Neutrophils # Seg Neutrophils # Man Lymphocytes # (Manual) POC ABG pH ABG pH POC ABG pCO2 POC ABG pO2 ABG pO2 ABG HCO3 ABG Base Excess ABG Hemoglobin Oxyhemoglobin Sodium Potassium Chloride Carbon Dioxide BUN Glucose POC Glucose 134 H 218 H 128 H Lactic Acid Calcium AST Alkaline Phosphatase Albumin Urine WBC (Auto) 01/23/17 01/24/17 01/24/17 17:36 00:08 05:16 WBC RBC Hgb Hct MCV MCH RDW Plt Count Lymph % (Auto) [place] % (Auto) Eos % (Auto) Seg Neutrophils % Seg Neuts % (Manual) Lymphocytes % (Manual) Seg Neutrophils # Seg Neutrophils # Man Lymphocytes # (Manual) POC ABG pH ABG pH POC ABG pCO2 POC ABG pO2 ABG pO2 ABG HCO3 ABG Base Excess ABG Hemoglobin Oxyhemoglobin Sodium Potassium Chloride Carbon Dioxide BUN Glucose POC Glucose 156 H 129 H 169 H Lactic Acid Calcium AST Alkaline Phosphatase Albumin Urine WBC (Auto) 01/24/17 01/24/17 01/24/17 11:40 17:43 23:23 WBC RBC Hgb Hct MCV MCH RDW Plt Count Lymph % (Auto) [place] % (Auto) Eos % (Auto) Seg Neutrophils % Seg Neuts % (Manual) Lymphocytes % (Manual) Seg Neutrophils # Seg Neutrophils # Man Lymphocytes # (Manual) POC ABG pH ABG pH POC ABG pCO2 POC ABG pO2 ABG pO2 ABG HCO3 ABG Base Excess ABG Hemoglobin Oxyhemoglobin Sodium Potassium Chloride Carbon Dioxide BUN Glucose POC Glucose 187 H 215 H 222 H Lactic Acid Calcium AST Alkaline Phosphatase Albumin Urine WBC (Auto) 01/25/17 01/25/17 01/25/17 04:56 11:52 17:37 WBC RBC Hgb Hct MCV MCH RDW Plt Count Lymph % (Auto) [place] % (Auto) Eos % (Auto) Seg Neutrophils % Seg Neuts % (Manual) Lymphocytes % (Manual) Seg Neutrophils # Seg Neutrophils # Man Lymphocytes # (Manual) POC ABG pH ABG pH POC ABG pCO2 POC ABG pO2 ABG pO2 ABG HCO3 ABG Base Excess ABG Hemoglobin Oxyhemoglobin Sodium Potassium Chloride Carbon Dioxide BUN Glucose POC Glucose 210 H 284 H 218 H Lactic Acid Calcium AST Alkaline Phosphatase Albumin Urine WBC (Auto) 01/26/17 01/26/17 01/26/17 00:02 05:33 12:17 WBC RBC Hgb Hct MCV MCH RDW Plt Count Lymph % (Auto) [place] % (Auto) Eos % (Auto) Seg Neutrophils % Seg Neuts % (Manual) Lymphocytes % (Manual) Seg Neutrophils # Seg Neutrophils # Man Lymphocytes # (Manual) POC ABG pH ABG pH POC ABG pCO2 POC ABG pO2 ABG pO2 ABG HCO3 ABG Base Excess ABG Hemoglobin Oxyhemoglobin Sodium Potassium Chloride Carbon Dioxide BUN Glucose POC Glucose 192 H 199 H 227 H Lactic Acid Calcium AST Alkaline Phosphatase Albumin Urine WBC (Auto) 01/26/17 01/26/17 01/27/17 17:50 23:57 05:31 WBC RBC Hgb Hct MCV MCH RDW Plt Count Lymph % (Auto) [place] % (Auto) Eos % (Auto) Seg Neutrophils % Seg Neuts % (Manual) Lymphocytes % (Manual) Seg Neutrophils # Seg Neutrophils # Man Lymphocytes # (Manual) POC ABG pH ABG pH POC ABG pCO2 POC ABG pO2 ABG pO2 ABG HCO3 ABG Base Excess ABG Hemoglobin Oxyhemoglobin Sodium Potassium Chloride Carbon Dioxide BUN Glucose POC Glucose 229 H 186 H 285 H Lactic Acid Calcium AST Alkaline Phosphatase Albumin Urine WBC (Auto) 01/27/17 01/27/17 01/27/17 11:42 17:47 23:58 WBC RBC Hgb Hct MCV MCH RDW Plt Count Lymph % (Auto) [place] % (Auto) Eos % (Auto) Seg Neutrophils % Seg Neuts % (Manual) Lymphocytes % (Manual) Seg Neutrophils # Seg Neutrophils # Man Lymphocytes # (Manual) POC ABG pH ABG pH POC ABG pCO2 POC ABG pO2 ABG pO2 ABG HCO3 ABG Base Excess ABG Hemoglobin Oxyhemoglobin Sodium Potassium Chloride Carbon Dioxide BUN Glucose POC Glucose 260 H 329 H 225 H Lactic Acid Calcium AST Alkaline Phosphatase Albumin Urine WBC (Auto) 01/27/17 01/27/17 01/28/17 Unknown Unknown 03:44 WBC 12.1 H RBC 3.28 L 3.14 L Hgb 8.5 L 8.2 L Hct 25.5 L 24.1 L MCV 78 L 77 L MCH 26 L 26 L RDW 16.8 H 16.9 H Plt Count 601 H 567 H Lymph % (Auto) [place] % (Auto) Eos % (Auto) Seg Neutrophils % Seg Neuts % (Manual) Lymphocytes % (Manual) Seg Neutrophils # Seg Neutrophils # Man Lymphocytes # (Manual) POC ABG pH ABG pH POC ABG pCO2 POC ABG pO2 ABG pO2 ABG HCO3 ABG Base Excess ABG Hemoglobin Oxyhemoglobin Sodium 128 L Potassium 5.4 H Chloride 87.5 L Carbon Dioxide BUN 44 H Glucose 250 H POC Glucose Lactic Acid Calcium AST Alkaline Phosphatase Albumin Urine WBC (Auto) 01/28/17 01/28/17 01/28/17 03:44 11:43 16:47 WBC RBC Hgb Hct MCV MCH RDW Plt Count Lymph % (Auto) [place] % (Auto) Eos % (Auto) Seg Neutrophils % Seg Neuts % (Manual) Lymphocytes % (Manual) Seg Neutrophils # Seg Neutrophils # Man Lymphocytes # (Manual) POC ABG pH ABG pH POC ABG pCO2 POC ABG pO2 ABG pO2 ABG HCO3 ABG Base Excess ABG Hemoglobin Oxyhemoglobin Sodium Potassium Chloride Carbon Dioxide BUN 42 H Glucose 128 H POC Glucose 351 H 249 H Lactic Acid Calcium AST Alkaline Phosphatase Albumin Urine WBC (Auto) 01/28/17 01/29/17 01/29/17 17:52 05:25 05:25 WBC 13.6 H RBC 3.25 L Hgb 8.3 L Hct 25.1 L MCV 77 L MCH 26 L RDW 16.8 H Plt Count 514 H Lymph % (Auto) [place] % (Auto) Eos % (Auto) Seg Neutrophils % Seg Neuts % (Manual) Lymphocytes % (Manual) Seg Neutrophils # Seg Neutrophils # Man Lymphocytes # (Manual) POC ABG pH ABG pH POC ABG pCO2 POC ABG pO2 ABG pO2 ABG HCO3 ABG Base Excess ABG Hemoglobin Oxyhemoglobin Sodium Potassium Chloride 97.8 L Carbon Dioxide BUN 34 H Glucose 222 H POC Glucose Lactic Acid Calcium AST Alkaline Phosphatase Albumin Urine WBC (Auto) > 182.0 H 01/29/17 01/29/17 01/29/17 09:32 11:56 18:11 WBC RBC Hgb Hct MCV MCH RDW Plt Count Lymph % (Auto) [place] % (Auto) Eos % (Auto) Seg Neutrophils % Seg Neuts % (Manual) Lymphocytes % (Manual) Seg Neutrophils # Seg Neutrophils # Man Lymphocytes # (Manual) POC ABG pH ABG pH POC ABG pCO2 POC ABG pO2 ABG pO2 ABG HCO3 ABG Base Excess ABG Hemoglobin Oxyhemoglobin Sodium Potassium Chloride Carbon Dioxide BUN Glucose POC Glucose 261 H 215 H Lactic Acid 2.50 H* Calcium AST Alkaline Phosphatase Albumin Urine WBC (Auto) 01/29/17 01/30/17 01/30/17 23:55 05:31 05:31 WBC 15.2 H RBC 3.09 L Hgb 7.9 L Hct 23.9 L MCV 77 L MCH 26 L RDW 16.9 H Plt Count 569 H Lymph % (Auto) [place] % (Auto) Eos % (Auto) Seg Neutrophils % Seg Neuts % (Manual) Lymphocytes % (Manual) Seg Neutrophils # Seg Neutrophils # Man Lymphocytes # (Manual) POC ABG pH ABG pH POC ABG pCO2 POC ABG pO2 ABG pO2 ABG HCO3 ABG Base Excess ABG Hemoglobin Oxyhemoglobin Sodium Potassium Chloride Carbon Dioxide BUN 24 H Glucose 235 H POC Glucose 176 H Lactic Acid Calcium AST Alkaline Phosphatase Albumin Urine WBC (Auto) 01/30/17 05:34 WBC RBC Hgb Hct MCV MCH RDW Plt Count Lymph % (Auto) [place] % (Auto) Eos % (Auto) Seg Neutrophils % Seg Neuts % (Manual) Lymphocytes % (Manual) Seg Neutrophils # Seg Neutrophils # Man Lymphocytes # (Manual) POC ABG pH ABG pH POC ABG pCO2 POC ABG pO2 ABG pO2 ABG HCO3 ABG Base Excess ABG Hemoglobin Oxyhemoglobin Sodium Potassium Chloride Carbon Dioxide BUN Glucose POC Glucose 243 H Lactic Acid Calcium AST Alkaline Phosphatase Albumin Urine WBC (Auto)
[2017-01-30] MEDS: APRESOLINE IV PRN (19:18)
[2017-01-31] MEDS: VANCOMYCIN 750 MG in NACL 0.9% 250ML 250 ML IV SCH ×2 (02:07→14:49)
[2017-01-31] MEDS: APRESOLINE IV PRN (03:28)
[2017-01-31] MEDS: SYNTHROID PO SCH (05:22)
[2017-01-31 05:23] LABS: BUN/Creatinine Ratio 24; Blood Urea Nitrogen 17 mg/dL (9-20); Calcium 8.6 mg/dL (8.4-10.2); Hemolysis Index 2
[2017-01-31] MEDS: ZOSYN/NS 4.5GM/100ML 4.5 GM/100 ML VIAL IV SCH ×3 (05:23→21:52)
[2017-01-31 05:28] LABS: Hematocrit 24.9 % (35.5-45.6); Hemoglobin 8.2 gm/dl (11.8-15.2); Mean Corpuscular HGB Conc 33 % (32-34); Mean Corpuscular Volume 78 fl (84-94); Platelet Count 576 K/mm3 (140-440); Red Blood Count 3.22 M/mm3 (3.65-5.03); Red Cell Distribution Width 17.2 % (13.2-15.2)
[2017-01-31 05:31] LABS: Mean Corpuscular Hemoglobin 25 pg (28-32)
[2017-01-31] MEDS: NOVOLOG SUB-Q SCH ×3 (06:23→19:28)
--- NOTE | 2017-01-31 09:01 | Progress Note ---
Assessment and Plan Acute respiratory failure, hypoxia. Unable to wean patient due to baseline neurological status changes. Fever. Last yesterday.On Zosyn,vancomycin.+ peripheral cultures/mixed Hypoglycemia/hypothermia - Metabolic encephalopathy. Severe. Poor EEG response/tracing, per neurology. Likely secondary to severe neurological damage Hypothyroidism; doubt myxedema coma UTI/SIRS Recommendations continue on ABX await c diff continue spontaneous breathing trials. Again unable to extubate due to neurological status nutritional support overall prognosis poor placement Possible hospice placement. 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 Awaiting final response from administration/patient proxy, unable to move forward with decision process. I also recommended for tracheotomy, in order to wean patient from an MV support, which may help with his placement process Guarded to poor prognosis; complex patient Critical care time with a 31 minutes of [id number] evaluation and coordination of care Subjective Date of service: 01/31/17 Principal diagnosis: Acute respiratory failure,encephalopathy Interval history: Patient is nonresponsive Objective Vital Signs - 12hr 01/30/17 01/30/17 01/30/17 22:00 22:57 23:00 Temperature Pulse Rate 75 75 75 Respiratory 16 17 Rate Blood Pressure 116/64 116/64 124/67 O2 Sat by Pulse 99 100 99 Oximetry 01/31/17 01/31/17 01/31/17 00:00 00:02 01:00 Temperature 98.6 F Pulse Rate 78 76 77 Respiratory 17 17 14 Rate Blood Pressure 123/67 123/67 151/71 O2 Sat by Pulse 100 100 98 Oximetry 01/31/17 01/31/17 01/31/17 02:00 02:50 03:00 Temperature Pulse Rate 77 77 76 Respiratory 16 17 Rate Blood Pressure 151/71 160/70 186/79 O2 Sat by Pulse 100 100 99 Oximetry 01/31/17 01/31/17 01/31/17 03:28 04:00 05:00 Temperature 97.8 F Pulse Rate 78 82 85 Respiratory 16 19 Rate Blood Pressure 186/79 126/64 126/67 O2 Sat by Pulse 98 99 Oximetry 01/31/17 01/31/17 01/31/17 06:00 07:00 08:00 Temperature 97.8 F Pulse Rate 85 88 87 Respiratory 19 22 20 Rate Blood Pressure 134/67 131/75 141/78 O2 Sat by Pulse 100 99 Oximetry Constitutional: no acute distress, comatose, other (orally intubated, on vent) Eyes: non-icteric ENT: oropharynx moist Neck: supple, no JVD Effort: normal Ascultation: Bilateral: clear, diminished breath sounds Cardiovascular: regular rate and rhythm Gastrointestinal: normoactive bowel sounds, soft, non-tender, non-distended Integumentary: normal Extremities: no cyanosis, no edema, pink and warm Neurologic: non-focal exam, pupils equal and round, other (no response to pain. Possible decortication posturing reflexes reported, reported recently by nursing .) Psychiatric: other (unable to obtain) CBC and BMP: 01/31/17 04:39 01/31/17 04:39 ABG, PT/INR, D-dimer: ABG POC ABG pH 7.485 (7.35-7.45) H 01/13/17 04:26 ABG pH 7.420 pH Units (7.350-7.450) 01/17/17 04:35 POC ABG pCO2 25.4 (35-45) L 01/13/17 04:26 ABG pCO2 34.5 mm Hg 01/17/17 04:35 POC ABG pO2 73 (80-105) L 01/13/17 04:26 ABG pO2 160.3 mm Hg (80.0-90.0) H 01/17/17 04:35 POC ABG HCO3 19.1 01/13/17 04:26 POC ABG Total CO2 20 01/13/17 04:26 POC ABG O2 Sat 96 01/13/17 04:26 ABG O2 Saturation 99.0 % (95.0-99.0) 01/17/17 04:35 PT/INR, D-dimer PT 14.1 Sec. (12.2-14.9) 01/17/17 04:10 INR 1.04 (0.87-1.13) 01/17/17 04:10 Abnormal lab findings: Abnormal Labs 01/09/17 01/09/17 01/09/17 12:49 13:13 14:21 WBC RBC Hgb Hct MCV MCH RDW Plt Count Lymph % (Auto) [place] % (Auto) Eos % (Auto) Seg Neutrophils % Seg Neuts % (Manual) Lymphocytes % (Manual) Seg Neutrophils # Seg Neutrophils # Man Lymphocytes # (Manual) POC ABG pH ABG pH POC ABG pCO2 POC ABG pO2 ABG pO2 ABG HCO3 ABG Base Excess ABG Hemoglobin Oxyhemoglobin Sodium Potassium Chloride Carbon Dioxide BUN Creatinine Glucose POC Glucose < 40 L 128 H 65 L Lactic Acid Calcium AST Alkaline Phosphatase Albumin Urine WBC (Auto) 01/09/17 01/09/17 01/09/17 15:09 16:28 17:14 WBC RBC Hgb Hct MCV MCH RDW Plt Count Lymph % (Auto) [place] % (Auto) Eos % (Auto) Seg Neutrophils % Seg Neuts % (Manual) Lymphocytes % (Manual) Seg Neutrophils # Seg Neutrophils # Man Lymphocytes # (Manual) POC ABG pH ABG pH POC ABG pCO2 POC ABG pO2 ABG pO2 ABG HCO3 ABG Base Excess ABG Hemoglobin Oxyhemoglobin Sodium Potassium Chloride Carbon Dioxide BUN Creatinine Glucose POC Glucose 120 H 44 L 112 H Lactic Acid Calcium AST Alkaline Phosphatase Albumin Urine WBC (Auto) 01/10/17 01/10/17 01/10/17 04:30 04:30 05:41 WBC 24.1 H RBC 3.38 L Hgb 8.5 L Hct 26.0 L MCV 77 L MCH 25 L RDW 17.9 H Plt Count 474 H Lymph % (Auto) [place] % (Auto) Eos % (Auto) Seg Neutrophils % Seg Neuts % (Manual) 88.0 H Lymphocytes % (Manual) 4.0 L Seg Neutrophils # Seg Neutrophils # Man 21.2 H Lymphocytes # (Manual) 1.0 L POC ABG pH ABG pH POC ABG pCO2 POC ABG pO2 ABG pO2 ABG HCO3 ABG Base Excess ABG Hemoglobin Oxyhemoglobin Sodium Potassium Chloride Carbon Dioxide 17 L BUN 27 H Creatinine Glucose POC Glucose 68 L Lactic Acid Calcium 7.5 L AST Alkaline Phosphatase Albumin Urine WBC (Auto) 01/10/17 01/10/17 01/10/17 05:45 07:47 10:50 WBC RBC Hgb Hct MCV MCH RDW Plt Count Lymph % (Auto) [place] % (Auto) Eos % (Auto) Seg Neutrophils % Seg Neuts % (Manual) Lymphocytes % (Manual) Seg Neutrophils # Seg Neutrophils # Man Lymphocytes # (Manual) POC ABG pH ABG pH POC ABG pCO2 26.6 L POC ABG pO2 207 H ABG pO2 ABG HCO3 ABG Base Excess ABG Hemoglobin Oxyhemoglobin Sodium Potassium Chloride Carbon Dioxide BUN Creatinine Glucose POC Glucose 148 H 165 H Lactic Acid Calcium AST Alkaline Phosphatase Albumin Urine WBC (Auto) 01/10/17 01/10/17 01/10/17 13:41 20:20 21:39 WBC RBC Hgb Hct MCV MCH RDW Plt Count Lymph % (Auto) [place] % (Auto) Eos % (Auto) Seg Neutrophils % Seg Neuts % (Manual) Lymphocytes % (Manual) Seg Neutrophils # Seg Neutrophils # Man Lymphocytes # (Manual) POC ABG pH ABG pH POC ABG pCO2 POC ABG pO2 ABG pO2 ABG HCO3 ABG Base Excess ABG Hemoglobin Oxyhemoglobin Sodium Potassium Chloride Carbon Dioxide BUN Creatinine Glucose POC Glucose 114 H 150 H 175 H Lactic Acid Calcium AST Alkaline Phosphatase Albumin Urine WBC (Auto) 01/10/17 01/11/17 01/11/17 23:24 00:19 04:06 WBC RBC Hgb Hct MCV MCH RDW Plt Count Lymph % (Auto) [place] % (Auto) Eos % (Auto) Seg Neutrophils % Seg Neuts % (Manual) Lymphocytes % (Manual) Seg Neutrophils # Seg Neutrophils # Man Lymphocytes # (Manual) POC ABG pH 7.463 H ABG pH POC ABG pCO2 26.2 L POC ABG pO2 185 H ABG pO2 ABG HCO3 ABG Base Excess ABG Hemoglobin Oxyhemoglobin Sodium Potassium Chloride Carbon Dioxide BUN Creatinine Glucose POC Glucose 155 H 163 H Lactic Acid Calcium AST Alkaline Phosphatase Albumin Urine WBC (Auto) 01/11/17 01/11/17 01/11/17 05:20 05:20 06:21 WBC 15.2 H RBC 3.40 L Hgb 8.9 L Hct 26.3 L MCV 78 L MCH 26 L RDW 18.6 H Plt Count 462 H Lymph % (Auto) 13.2 L [place] % (Auto) Eos % (Auto) Seg Neutrophils % 80.8 H Seg Neuts % (Manual) Lymphocytes % (Manual) Seg Neutrophils # 12.3 H Seg Neutrophils # Man Lymphocytes # (Manual) POC ABG pH ABG pH POC ABG pCO2 POC ABG pO2 ABG pO2 ABG HCO3 ABG Base Excess ABG Hemoglobin Oxyhemoglobin Sodium Potassium 3.4 L Chloride 111.5 H Carbon Dioxide 17 L BUN Creatinine Glucose 147 H POC Glucose 139 H Lactic Acid Calcium 8.0 L AST Alkaline Phosphatase Albumin Urine WBC (Auto) 01/11/17 01/11/17 01/11/17 07:57 11:46 16:50 WBC RBC Hgb Hct MCV MCH RDW Plt Count Lymph % (Auto) [place] % (Auto) Eos % (Auto) Seg Neutrophils % Seg Neuts % (Manual) Lymphocytes % (Manual) Seg Neutrophils # Seg Neutrophils # Man Lymphocytes # (Manual) POC ABG pH ABG pH POC ABG pCO2 POC ABG pO2 ABG pO2 ABG HCO3 ABG Base Excess ABG Hemoglobin Oxyhemoglobin Sodium Potassium Chloride Carbon Dioxide BUN Creatinine Glucose POC Glucose 188 H 199 H 235 H Lactic Acid Calcium AST Alkaline Phosphatase Albumin Urine WBC (Auto) 01/11/17 01/12/17 01/12/17 23:15 05:02 06:56 WBC RBC Hgb Hct MCV MCH RDW Plt Count Lymph % (Auto) [place] % (Auto) Eos % (Auto) Seg Neutrophils % Seg Neuts % (Manual) Lymphocytes % (Manual) Seg Neutrophils # Seg Neutrophils # Man Lymphocytes # (Manual) POC ABG pH ABG pH POC ABG pCO2 28.0 L POC ABG pO2 178 H ABG pO2 ABG HCO3 ABG Base Excess ABG Hemoglobin Oxyhemoglobin Sodium Potassium Chloride Carbon Dioxide BUN Creatinine Glucose POC Glucose 155 H 119 H Lactic Acid Calcium AST Alkaline Phosphatase Albumin Urine WBC (Auto) 01/12/17 01/13/17 01/13/17 14:50 03:37 03:37 WBC RBC 3.61 L Hgb 9.3 L Hct 28.0 L MCV 78 L MCH 26 L RDW 18.2 H Plt Count Lymph % (Auto) [place] % (Auto) Eos % (Auto) Seg Neutrophils % Seg Neuts % (Manual) Lymphocytes % (Manual) Seg Neutrophils # Seg Neutrophils # Man Lymphocytes # (Manual) POC ABG pH ABG pH POC ABG pCO2 POC ABG pO2 ABG pO2 ABG HCO3 ABG Base Excess ABG Hemoglobin Oxyhemoglobin Sodium Potassium Chloride 112.4 H Carbon Dioxide 19 L BUN Creatinine Glucose 118 H POC Glucose 164 H Lactic Acid Calcium 8.0 L AST Alkaline Phosphatase Albumin Urine WBC (Auto) 01/13/17 01/13/17 01/13/17 04:26 06:15 11:50 WBC RBC Hgb Hct MCV MCH RDW Plt Count Lymph % (Auto) [place] % (Auto) Eos % (Auto) Seg Neutrophils % Seg Neuts % (Manual) Lymphocytes % (Manual) Seg Neutrophils # Seg Neutrophils # Man Lymphocytes # (Manual) POC ABG pH 7.485 H ABG pH POC ABG pCO2 25.4 L POC ABG pO2 73 L ABG pO2 ABG HCO3 ABG Base Excess ABG Hemoglobin Oxyhemoglobin Sodium Potassium Chloride Carbon Dioxide BUN Creatinine Glucose POC Glucose 116 H 171 H Lactic Acid Calcium AST Alkaline Phosphatase Albumin Urine WBC (Auto) 01/13/17 01/14/17 01/14/17 17:31 00:02 04:50 WBC RBC 3.32 L Hgb 8.5 L Hct 26.1 L MCV 79 L MCH 26 L RDW 18.2 H Plt Count Lymph % (Auto) [place] % (Auto) 9.0 H Eos % (Auto) Seg Neutrophils % Seg Neuts % (Manual) Lymphocytes % (Manual) Seg Neutrophils # Seg Neutrophils # Man Lymphocytes # (Manual) POC ABG pH ABG pH POC ABG pCO2 POC ABG pO2 ABG pO2 ABG HCO3 ABG Base Excess ABG Hemoglobin Oxyhemoglobin Sodium Potassium Chloride Carbon Dioxide BUN Creatinine Glucose POC Glucose 203 H 157 H Lactic Acid Calcium AST Alkaline Phosphatase Albumin Urine WBC (Auto) 01/14/17 01/14/17 01/14/17 04:50 05:10 11:27 WBC RBC Hgb Hct MCV MCH RDW Plt Count Lymph % (Auto) [place] % (Auto) Eos % (Auto) Seg Neutrophils % Seg Neuts % (Manual) Lymphocytes % (Manual) Seg Neutrophils # Seg Neutrophils # Man Lymphocytes # (Manual) POC ABG pH ABG pH POC ABG pCO2 POC ABG pO2 ABG pO2 ABG HCO3 ABG Base Excess ABG Hemoglobin Oxyhemoglobin Sodium Potassium Chloride 112.5 H Carbon Dioxide BUN Creatinine Glucose 149 H POC Glucose 176 H 147 H Lactic Acid Calcium 8.1 L AST Alkaline Phosphatase Albumin Urine WBC (Auto) 01/14/17 01/14/17 01/15/17 14:07 16:52 00:04 WBC RBC Hgb Hct MCV MCH RDW Plt Count Lymph % (Auto) [place] % (Auto) Eos % (Auto) Seg Neutrophils % Seg Neuts % (Manual) Lymphocytes % (Manual) Seg Neutrophils # Seg Neutrophils # Man Lymphocytes # (Manual) POC ABG pH ABG pH POC ABG pCO2 POC ABG pO2 ABG pO2 ABG HCO3 ABG Base Excess ABG Hemoglobin Oxyhemoglobin Sodium Potassium Chloride Carbon Dioxide BUN Creatinine Glucose POC Glucose 131 H 193 H Lactic Acid Calcium AST Alkaline Phosphatase Albumin Urine WBC (Auto) 53.0 H 01/15/17 01/15/17 01/15/17 05:26 11:49 17:47 WBC RBC Hgb Hct MCV MCH RDW Plt Count Lymph % (Auto) [place] % (Auto) Eos % (Auto) Seg Neutrophils % Seg Neuts % (Manual) Lymphocytes % (Manual) Seg Neutrophils # Seg Neutrophils # Man Lymphocytes # (Manual) POC ABG pH ABG pH POC ABG pCO2 POC ABG pO2 ABG pO2 ABG HCO3 ABG Base Excess ABG Hemoglobin Oxyhemoglobin Sodium Potassium Chloride Carbon Dioxide BUN Creatinine Glucose POC Glucose 215 H 121 H 211 H Lactic Acid Calcium AST Alkaline Phosphatase Albumin Urine WBC (Auto) 01/15/17 01/16/17 01/16/17 21:33 04:30 05:28 WBC RBC Hgb Hct MCV MCH RDW Plt Count Lymph % (Auto) [place] % (Auto) Eos % (Auto) Seg Neutrophils % Seg Neuts % (Manual) Lymphocytes % (Manual) Seg Neutrophils # Seg Neutrophils # Man Lymphocytes # (Manual) POC ABG pH ABG pH 7.457 H POC ABG pCO2 POC ABG pO2 ABG pO2 55.1 L ABG HCO3 19.4 L ABG Base Excess -4.0 L ABG Hemoglobin 6.8 L Oxyhemoglobin 94.9 L Sodium Potassium Chloride Carbon Dioxide BUN Creatinine Glucose POC Glucose 275 H 271 H Lactic Acid Calcium AST Alkaline Phosphatase Albumin Urine WBC (Auto) 01/16/17 01/16/17 01/17/17 13:45 21:39 04:10 WBC 4.4 L RBC 2.98 L Hgb 7.7 L Hct 23.3 L MCV 78 L MCH 26 L RDW 18.1 H Plt Count Lymph % (Auto) [place] % (Auto) Eos % (Auto) Seg Neutrophils % Seg Neuts % (Manual) Lymphocytes % (Manual) Seg Neutrophils # Seg Neutrophils # Man Lymphocytes # (Manual) POC ABG pH ABG pH POC ABG pCO2 POC ABG pO2 ABG pO2 ABG HCO3 ABG Base Excess ABG Hemoglobin Oxyhemoglobin Sodium Potassium Chloride Carbon Dioxide BUN Creatinine Glucose POC Glucose 236 H 258 H Lactic Acid Calcium AST Alkaline Phosphatase Albumin Urine WBC (Auto) 01/17/17 01/17/17 01/17/17 04:10 04:35 12:23 WBC RBC Hgb Hct MCV MCH RDW Plt Count Lymph % (Auto) [place] % (Auto) Eos % (Auto) Seg Neutrophils % Seg Neuts % (Manual) Lymphocytes % (Manual) Seg Neutrophils # Seg Neutrophils # Man Lymphocytes # (Manual) POC ABG pH ABG pH POC ABG pCO2 POC ABG pO2 ABG pO2 160.3 H ABG HCO3 ABG Base Excess -2.3 L ABG Hemoglobin 7.9 L Oxyhemoglobin Sodium Potassium 3.3 L Chloride 108.7 H Carbon Dioxide 20 L BUN 8 L Creatinine Glucose 202 H POC Glucose 321 H Lactic Acid Calcium 7.6 L AST Alkaline Phosphatase Albumin Urine WBC (Auto) 01/17/17 01/18/17 01/18/17 16:01 05:07 12:09 WBC RBC Hgb Hct MCV MCH RDW Plt Count Lymph % (Auto) [place] % (Auto) Eos % (Auto) Seg Neutrophils % Seg Neuts % (Manual) Lymphocytes % (Manual) Seg Neutrophils # Seg Neutrophils # Man Lymphocytes # (Manual) POC ABG pH ABG pH POC ABG pCO2 POC ABG pO2 ABG pO2 ABG HCO3 ABG Base Excess ABG Hemoglobin Oxyhemoglobin Sodium Potassium Chloride Carbon Dioxide BUN Creatinine Glucose POC Glucose 239 H 155 H 203 H Lactic Acid Calcium AST Alkaline Phosphatase Albumin Urine WBC (Auto) 01/18/17 01/18/17 01/19/17 17:54 23:43 04:28 WBC RBC Hgb Hct MCV MCH RDW Plt Count Lymph % (Auto) [place] % (Auto) Eos % (Auto) Seg Neutrophils % Seg Neuts % (Manual) Lymphocytes % (Manual) Seg Neutrophils # Seg Neutrophils # Man Lymphocytes # (Manual) POC ABG pH ABG pH POC ABG pCO2 POC ABG pO2 ABG pO2 ABG HCO3 ABG Base Excess ABG Hemoglobin Oxyhemoglobin Sodium Potassium Chloride Carbon Dioxide BUN Creatinine Glucose POC Glucose 132 H 125 H 182 H Lactic Acid Calcium AST Alkaline Phosphatase Albumin Urine WBC (Auto) 01/19/17 01/19/17 01/20/17 12:11 17:23 00:12 WBC RBC Hgb Hct MCV MCH RDW Plt Count Lymph % (Auto) [place] % (Auto) Eos % (Auto) Seg Neutrophils % Seg Neuts % (Manual) Lymphocytes % (Manual) Seg Neutrophils # Seg Neutrophils # Man Lymphocytes # (Manual) POC ABG pH ABG pH POC ABG pCO2 POC ABG pO2 ABG pO2 ABG HCO3 ABG Base Excess ABG Hemoglobin Oxyhemoglobin Sodium Potassium Chloride Carbon Dioxide BUN Creatinine Glucose POC Glucose 153 H 66 L 139 H Lactic Acid Calcium AST Alkaline Phosphatase Albumin Urine WBC (Auto) 01/20/17 01/20/17 01/20/17 05:44 11:48 17:42 WBC RBC Hgb Hct MCV MCH RDW Plt Count Lymph % (Auto) [place] % (Auto) Eos % (Auto) Seg Neutrophils % Seg Neuts % (Manual) Lymphocytes % (Manual) Seg Neutrophils # Seg Neutrophils # Man Lymphocytes # (Manual) POC ABG pH ABG pH POC ABG pCO2 POC ABG pO2 ABG pO2 ABG HCO3 ABG Base Excess ABG Hemoglobin Oxyhemoglobin Sodium Potassium Chloride Carbon Dioxide BUN Creatinine Glucose POC Glucose 176 H 218 H 132 H Lactic Acid Calcium AST Alkaline Phosphatase Albumin Urine WBC (Auto) 01/20/17 01/21/17 01/21/17 23:43 05:34 11:17 WBC RBC Hgb Hct MCV MCH RDW Plt Count Lymph % (Auto) [place] % (Auto) Eos % (Auto) Seg Neutrophils % Seg Neuts % (Manual) Lymphocytes % (Manual) Seg Neutrophils # Seg Neutrophils # Man Lymphocytes # (Manual) POC ABG pH ABG pH POC ABG pCO2 POC ABG pO2 ABG pO2 ABG HCO3 ABG Base Excess ABG Hemoglobin Oxyhemoglobin Sodium Potassium Chloride Carbon Dioxide BUN Creatinine Glucose POC Glucose 178 H 106 H 213 H Lactic Acid Calcium AST Alkaline Phosphatase Albumin Urine WBC (Auto) 01/21/17 01/22/17 01/22/17 23:37 04:00 04:00 WBC RBC 3.26 L Hgb 8.3 L Hct 25.5 L MCV 78 L MCH 25 L RDW 17.9 H Plt Count Lymph % (Auto) [place] % (Auto) 7.9 H Eos % (Auto) 6.2 H Seg Neutrophils % Seg Neuts % (Manual) Lymphocytes % (Manual) Seg Neutrophils # Seg Neutrophils # Man Lymphocytes # (Manual) POC ABG pH ABG pH POC ABG pCO2 POC ABG pO2 ABG pO2 ABG HCO3 ABG Base Excess ABG Hemoglobin Oxyhemoglobin Sodium Potassium Chloride 95.5 L Carbon Dioxide 31 H D BUN Creatinine Glucose 134 H POC Glucose 140 H Lactic Acid Calcium AST 44 H Alkaline Phosphatase 379 H Albumin 2.7 L Urine WBC (Auto) 01/22/17 01/22/17 01/22/17 04:58 12:12 18:12 WBC RBC Hgb Hct MCV MCH RDW Plt Count Lymph % (Auto) [place] % (Auto) Eos % (Auto) Seg Neutrophils % Seg Neuts % (Manual) Lymphocytes % (Manual) Seg Neutrophils # Seg Neutrophils # Man Lymphocytes # (Manual) POC ABG pH ABG pH POC ABG pCO2 POC ABG pO2 ABG pO2 ABG HCO3 ABG Base Excess ABG Hemoglobin Oxyhemoglobin Sodium Potassium Chloride Carbon Dioxide BUN Creatinine Glucose POC Glucose 146 H 255 H 182 H Lactic Acid Calcium AST Alkaline Phosphatase Albumin Urine WBC (Auto) 01/22/17 01/23/17 01/23/17 23:39 04:43 12:12 WBC RBC Hgb Hct MCV MCH RDW Plt Count Lymph % (Auto) [place] % (Auto) Eos % (Auto) Seg Neutrophils % Seg Neuts % (Manual) Lymphocytes % (Manual) Seg Neutrophils # Seg Neutrophils # Man Lymphocytes # (Manual) POC ABG pH ABG pH POC ABG pCO2 POC ABG pO2 ABG pO2 ABG HCO3 ABG Base Excess ABG Hemoglobin Oxyhemoglobin Sodium Potassium Chloride Carbon Dioxide BUN Creatinine Glucose POC Glucose 134 H 218 H 128 H Lactic Acid Calcium AST Alkaline Phosphatase Albumin Urine WBC (Auto) 01/23/17 01/24/17 01/24/17 17:36 00:08 05:16 WBC RBC Hgb Hct MCV MCH RDW Plt Count Lymph % (Auto) [place] % (Auto) Eos % (Auto) Seg Neutrophils % Seg Neuts % (Manual) Lymphocytes % (Manual) Seg Neutrophils # Seg Neutrophils # Man Lymphocytes # (Manual) POC ABG pH ABG pH POC ABG pCO2 POC ABG pO2 ABG pO2 ABG HCO3 ABG Base Excess ABG Hemoglobin Oxyhemoglobin Sodium Potassium Chloride Carbon Dioxide BUN Creatinine Glucose POC Glucose 156 H 129 H 169 H Lactic Acid Calcium AST Alkaline Phosphatase Albumin Urine WBC (Auto) 01/24/17 01/24/17 01/24/17 11:40 17:43 23:23 WBC RBC Hgb Hct MCV MCH RDW Plt Count Lymph % (Auto) [place] % (Auto) Eos % (Auto) Seg Neutrophils % Seg Neuts % (Manual) Lymphocytes % (Manual) Seg Neutrophils # Seg Neutrophils # Man Lymphocytes # (Manual) POC ABG pH ABG pH POC ABG pCO2 POC ABG pO2 ABG pO2 ABG HCO3 ABG Base Excess ABG Hemoglobin Oxyhemoglobin Sodium Potassium Chloride Carbon Dioxide BUN Creatinine Glucose POC Glucose 187 H 215 H 222 H Lactic Acid Calcium AST Alkaline Phosphatase Albumin Urine WBC (Auto) 01/25/17 01/25/17 01/25/17 04:56 11:52 17:37 WBC RBC Hgb Hct MCV MCH RDW Plt Count Lymph % (Auto) [place] % (Auto) Eos % (Auto) Seg Neutrophils % Seg Neuts % (Manual) Lymphocytes % (Manual) Seg Neutrophils # Seg Neutrophils # Man Lymphocytes # (Manual) POC ABG pH ABG pH POC ABG pCO2 POC ABG pO2 ABG pO2 ABG HCO3 ABG Base Excess ABG Hemoglobin Oxyhemoglobin Sodium Potassium Chloride Carbon Dioxide BUN Creatinine Glucose POC Glucose 210 H 284 H 218 H Lactic Acid Calcium AST Alkaline Phosphatase Albumin Urine WBC (Auto) 01/26/17 01/26/17 01/26/17 00:02 05:33 12:17 WBC RBC Hgb Hct MCV MCH RDW Plt Count Lymph % (Auto) [place] % (Auto) Eos % (Auto) Seg Neutrophils % Seg Neuts % (Manual) Lymphocytes % (Manual) Seg Neutrophils # Seg Neutrophils # Man Lymphocytes # (Manual) POC ABG pH ABG pH POC ABG pCO2 POC ABG pO2 ABG pO2 ABG HCO3 ABG Base Excess ABG Hemoglobin Oxyhemoglobin Sodium Potassium Chloride Carbon Dioxide BUN Creatinine Glucose POC Glucose 192 H 199 H 227 H Lactic Acid Calcium AST Alkaline Phosphatase Albumin Urine WBC (Auto) 01/26/17 01/26/17 01/27/17 17:50 23:57 05:31 WBC RBC Hgb Hct MCV MCH RDW Plt Count Lymph % (Auto) [place] % (Auto) Eos % (Auto) Seg Neutrophils % Seg Neuts % (Manual) Lymphocytes % (Manual) Seg Neutrophils # Seg Neutrophils # Man Lymphocytes # (Manual) POC ABG pH ABG pH POC ABG pCO2 POC ABG pO2 ABG pO2 ABG HCO3 ABG Base Excess ABG Hemoglobin Oxyhemoglobin Sodium Potassium Chloride Carbon Dioxide BUN Creatinine Glucose POC Glucose 229 H 186 H 285 H Lactic Acid Calcium AST Alkaline Phosphatase Albumin Urine WBC (Auto) 01/27/17 01/27/17 01/27/17 11:42 17:47 23:58 WBC RBC Hgb Hct MCV MCH RDW Plt Count Lymph % (Auto) [place] % (Auto) Eos % (Auto) Seg Neutrophils % Seg Neuts % (Manual) Lymphocytes % (Manual) Seg Neutrophils # Seg Neutrophils # Man Lymphocytes # (Manual) POC ABG pH ABG pH POC ABG pCO2 POC ABG pO2 ABG pO2 ABG HCO3 ABG Base Excess ABG Hemoglobin Oxyhemoglobin Sodium Potassium Chloride Carbon Dioxide BUN Creatinine Glucose POC Glucose 260 H 329 H 225 H Lactic Acid Calcium AST Alkaline Phosphatase Albumin Urine WBC (Auto) 01/27/17 01/27/17 01/28/17 Unknown Unknown 03:44 WBC 12.1 H RBC 3.28 L 3.14 L Hgb 8.5 L 8.2 L Hct 25.5 L 24.1 L MCV 78 L 77 L MCH 26 L 26 L RDW 16.8 H 16.9 H Plt Count 601 H 567 H Lymph % (Auto) [place] % (Auto) Eos % (Auto) Seg Neutrophils % Seg Neuts % (Manual) Lymphocytes % (Manual) Seg Neutrophils # Seg Neutrophils # Man Lymphocytes # (Manual) POC ABG pH ABG pH POC ABG pCO2 POC ABG pO2 ABG pO2 ABG HCO3 ABG Base Excess ABG Hemoglobin Oxyhemoglobin Sodium 128 L Potassium 5.4 H Chloride 87.5 L Carbon Dioxide BUN 44 H Creatinine Glucose 250 H POC Glucose Lactic Acid Calcium AST Alkaline Phosphatase Albumin Urine WBC (Auto) 01/28/17 01/28/17 01/28/17 03:44 11:43 16:47 WBC RBC Hgb Hct MCV MCH RDW Plt Count Lymph % (Auto) [place] % (Auto) Eos % (Auto) Seg Neutrophils % Seg Neuts % (Manual) Lymphocytes % (Manual) Seg Neutrophils # Seg Neutrophils # Man Lymphocytes # (Manual) POC ABG pH ABG pH POC ABG pCO2 POC ABG pO2 ABG pO2 ABG HCO3 ABG Base Excess ABG Hemoglobin Oxyhemoglobin Sodium Potassium Chloride Carbon Dioxide BUN 42 H Creatinine Glucose 128 H POC Glucose 351 H 249 H Lactic Acid Calcium AST Alkaline Phosphatase Albumin Urine WBC (Auto) 01/28/17 01/29/17 01/29/17 17:52 05:25 05:25 WBC 13.6 H RBC 3.25 L Hgb 8.3 L Hct 25.1 L MCV 77 L MCH 26 L RDW 16.8 H Plt Count 514 H Lymph % (Auto) [place] % (Auto) Eos % (Auto) Seg Neutrophils % Seg Neuts % (Manual) Lymphocytes % (Manual) Seg Neutrophils # Seg Neutrophils # Man Lymphocytes # (Manual) POC ABG pH ABG pH POC ABG pCO2 POC ABG pO2 ABG pO2 ABG HCO3 ABG Base Excess ABG Hemoglobin Oxyhemoglobin Sodium Potassium Chloride 97.8 L Carbon Dioxide BUN 34 H Creatinine Glucose 222 H POC Glucose Lactic Acid Calcium AST Alkaline Phosphatase Albumin Urine WBC (Auto) > 182.0 H 01/29/17 01/29/17 01/29/17 09:32 11:56 18:11 WBC RBC Hgb Hct MCV MCH RDW Plt Count Lymph % (Auto) [place] % (Auto) Eos % (Auto) Seg Neutrophils % Seg Neuts % (Manual) Lymphocytes % (Manual) Seg Neutrophils # Seg Neutrophils # Man Lymphocytes # (Manual) POC ABG pH ABG pH POC ABG pCO2 POC ABG pO2 ABG pO2 ABG HCO3 ABG Base Excess ABG Hemoglobin Oxyhemoglobin Sodium Potassium Chloride Carbon Dioxide BUN Creatinine Glucose POC Glucose 261 H 215 H Lactic Acid 2.50 H* Calcium AST Alkaline Phosphatase Albumin Urine WBC (Auto) 01/29/17 01/30/17 01/30/17 23:55 05:31 05:31 WBC 15.2 H RBC 3.09 L Hgb 7.9 L Hct 23.9 L MCV 77 L MCH 26 L RDW 16.9 H Plt Count 569 H Lymph % (Auto) [place] % (Auto) Eos % (Auto) Seg Neutrophils % Seg Neuts % (Manual) Lymphocytes % (Manual) Seg Neutrophils # Seg Neutrophils # Man Lymphocytes # (Manual) POC ABG pH ABG pH POC ABG pCO2 POC ABG pO2 ABG pO2 ABG HCO3 ABG Base Excess ABG Hemoglobin Oxyhemoglobin Sodium Potassium Chloride Carbon Dioxide BUN 24 H Creatinine Glucose 235 H POC Glucose 176 H Lactic Acid Calcium AST Alkaline Phosphatase Albumin Urine WBC (Auto) 01/30/17 01/30/17 01/30/17 05:34 11:38 17:58 WBC RBC Hgb Hct MCV MCH RDW Plt Count Lymph % (Auto) [place] % (Auto) Eos % (Auto) Seg Neutrophils % Seg Neuts % (Manual) Lymphocytes % (Manual) Seg Neutrophils # Seg Neutrophils # Man Lymphocytes # (Manual) POC ABG pH ABG pH POC ABG pCO2 POC ABG pO2 ABG pO2 ABG HCO3 ABG Base Excess ABG Hemoglobin Oxyhemoglobin Sodium Potassium Chloride Carbon Dioxide BUN Creatinine Glucose POC Glucose 243 H 298 H 208 H Lactic Acid Calcium AST Alkaline Phosphatase Albumin Urine WBC (Auto) 01/30/17 01/31/17 01/31/17 23:29 04:39 04:39 WBC 11.4 H RBC 3.22 L Hgb 8.2 L Hct 24.9 L MCV 78 L MCH 25 L RDW 17.2 H Plt Count 576 H Lymph % (Auto) [place] % (Auto) Eos % (Auto) Seg Neutrophils % Seg Neuts % (Manual) Lymphocytes % (Manual) Seg Neutrophils # Seg Neutrophils # Man Lymphocytes # (Manual) POC ABG pH ABG pH POC ABG pCO2 POC ABG pO2 ABG pO2 ABG HCO3 ABG Base Excess ABG Hemoglobin Oxyhemoglobin Sodium Potassium Chloride Carbon Dioxide BUN Creatinine 0.7 L Glucose 223 H POC Glucose 245 H Lactic Acid Calcium AST Alkaline Phosphatase Albumin Urine WBC (Auto) 01/31/17 05:57 WBC RBC Hgb Hct MCV MCH RDW Plt Count Lymph % (Auto) [place] % (Auto) Eos % (Auto) Seg Neutrophils % Seg Neuts % (Manual) Lymphocytes % (Manual) Seg Neutrophils # Seg Neutrophils # Man Lymphocytes # (Manual) POC ABG pH ABG pH POC ABG pCO2 POC ABG pO2 ABG pO2 ABG HCO3 ABG Base Excess ABG Hemoglobin Oxyhemoglobin Sodium Potassium Chloride Carbon Dioxide BUN Creatinine Glucose POC Glucose 264 H Lactic Acid Calcium AST Alkaline Phosphatase Albumin Urine WBC (Auto)
[2017-01-31] MEDS: NACL 0.9% 1000 ML 1,000 ML IV SCH (11:24)
[2017-01-31] MEDS: PEPCID PO SCH ×2 (11:25→21:52)
[2017-01-31] MEDS: LEVEMIR (NF) SUB-Q SCH ×2 (11:25→16:35)
[2017-01-31] MEDS: HEPARIN SUB-Q SCH ×2 (11:25→21:52)
[2017-01-31] MEDS: NORMODYNE PO SCH ×2 (11:25→21:54)
--- NOTE | 2017-01-31 17:56 | Progress Note ---
Assessment and Plan Assessment and plan: Hypoglycemic brain injury. patient was found hypoglycemic. He is now in vegetative state. Persistent vegetative state. Metabolic encephalopathy due to hypoglycemia Hypoglycemia/hypothermia, resolved Acute respiratory failure. He has been on mechanical ventilator greater than 96 hours Hyponatremia. Now resolved. Sodium level 138 today Hypothyroidism Diabetes mellitus type 2. Check fingerstick glucose q 6h. Blood glucose still elevated, so will increase Levemir dose to 14 Units subcut Qam. Hypertension. BP stable Leukocytosis due to UTI. To r/o sepsis Fever,recurrent improving. No more fever past 24 hrs. Urinalysis shows UTI. Started on Zosyn and Vancomycin., Urine culture To r/o sepsis UTI. Urine culture shows Escherichia coli and Klebsiella pneumonia, both sensitive to Zosyn which he is taking. Continue Zosyn and Vancomycin Patient is DNR- awaiting hospice placement, needs guardianship from the state to give consent, as has no family to give consent History Interval history: Patient found unresponsive, diagnosed with hypoglycemia with brain injury, Still unresponsive, Still having recurrent fever, Hospitalist Physical - Physical exam Narrative exam: Gen Appearance: Not in acute distress, malnourished HEENT: normocephalic, atraumatic Neck: supple, no JVD Lungs: clear to auscultation bilaterally, no crackles or wheezes Heart: S1 and S2 regular, no murmurs, rubs or gallop Abdomen: Soft , non tender, non distended, normal bowel sounds Extremity: No edema, clubbing or cyanosis Neuro : Intubated, Unresponsive, vegetative state - Constitutional Vitals: Temp Pulse Resp BP Pulse Ox 98.6 F 76 17 119/61 98 01/31/17 12:00 01/31/17 16:00 01/31/17 16:00 01/31/17 16:00 01/31/17 16:00 General appearance: Present: severe distress Results - Labs CBC & Chem 7: 01/31/17 04:39 01/31/17 04:39 Labs: Laboratory Last Values WBC 11.4 K/mm3 (4.5-11.0) H 01/31/17 04:39 RBC 3.22 M/mm3 (3.65-5.03) L 01/31/17 04:39 Hgb 8.2 gm/dl (11.8-15.2) L 01/31/17 04:39 Hct 24.9 % (35.5-45.6) L 01/31/17 04:39 MCV 78 fl (84-94) L 01/31/17 04:39 MCH 25 pg (28-32) L 01/31/17 04:39 MCHC 33 % (32-34) 01/31/17 04:39 RDW 17.2 % (13.2-15.2) H 01/31/17 04:39 Plt Count 576 K/mm3 (140-440) H 01/31/17 04:39 Lymph % (Auto) 34.4 % (13.4-35.0) 01/22/17 04:00 [place] % (Auto) 7.9 % (0.0-7.3) H 01/22/17 04:00 Eos % (Auto) 6.2 % (0.0-4.3) H 01/22/17 04:00 Baso % (Auto) 1.1 % (0.0-1.8) 01/22/17 04:00 Lymph # 1.8 K/mm3 (1.2-5.4) 01/22/17 04:00 [place] # 0.4 K/mm3 (0.0-0.8) 01/22/17 04:00 Eos # 0.3 K/mm3 (0.0-0.4) 01/22/17 04:00 Baso # 0.1 K/mm3 (0.0-0.1) 01/22/17 04:00 Add Manual Diff Complete 01/10/17 04:30 Total Counted 100 01/10/17 04:30 Seg Neutrophils % 50.4 % (40.0-70.0) 01/22/17 04:00 Seg Neuts % (Manual) 88.0 % (40.0-70.0) H 01/10/17 04:30 Band Neutrophils % 7.0 % 01/10/17 04:30 Lymphocytes % (Manual) 4.0 % (13.4-35.0) L 01/10/17 04:30 Reactive Lymphs % (Man) 0 % 01/10/17 04:30 Monocytes % (Manual) 1.0 % (0.0-7.3) 01/10/17 04:30 Eosinophils % (Manual) 0 % (0.0-4.3) 01/10/17 04:30 Basophils % (Manual) 0 % (0.0-1.8) 01/10/17 04:30 Metamyelocytes % 0 % 01/10/17 04:30 Myelocytes % 0 % 01/10/17 04:30 Promyelocytes % 0 % 01/10/17 04:30 Blast Cells % 0 % 01/10/17 04:30 Nucleated RBC % Not Reportable 01/10/17 04:30 Seg Neutrophils # 2.7 K/mm3 (1.8-7.7) 01/22/17 04:00 Seg Neutrophils # Man 21.2 K/mm3 (1.8-7.7) H 01/10/17 04:30 Band Neutrophils # 1.7 K/mm3 01/10/17 04:30 Lymphocytes # (Manual) 1.0 K/mm3 (1.2-5.4) L 01/10/17 04:30 Abs React Lymphs (Man) 0.0 K/mm3 01/10/17 04:30 Monocytes # (Manual) 0.2 K/mm3 (0.0-0.8) 01/10/17 04:30 Eosinophils # (Manual) 0.0 K/mm3 (0.0-0.4) 01/10/17 04:30 Basophils # (Manual) 0.0 K/mm3 (0.0-0.1) 01/10/17 04:30 Metamyelocytes # 0.0 K/mm3 01/10/17 04:30 Myelocytes # 0.0 K/mm3 01/10/17 04:30 Promyelocytes # 0.0 K/mm3 01/10/17 04:30 Blast Cells # 0.0 K/mm3 01/10/17 04:30 WBC Morphology Not Reportable 01/10/17 04:30 Hypersegmented Neuts Not Reportable 01/10/17 04:30 Hyposegmented Neuts Not Reportable 01/10/17 04:30 Hypogranular Neuts Not Reportable 01/10/17 04:30 Smudge Cells Not Reportable 01/10/17 04:30 Toxic Granulation Not Reportable 01/10/17 04:30 Toxic Vacuolation Not Reportable 01/10/17 04:30 Dohle Bodies Not Reportable 01/10/17 04:30 Pelger-Huet Anomaly Not Reportable 01/10/17 04:30 [place] Rods Not Reportable 01/10/17 04:30 Platelet Estimate Consistent w auto 01/10/17 04:30 Clumped Platelets Not Reportable 01/10/17 04:30 Plt Clumps, EDTA Not Reportable 01/10/17 04:30 Large Platelets Not Reportable 01/10/17 04:30 Giant Platelets Not Reportable 01/10/17 04:30 Platelet Satelliting Not Reportable 01/10/17 04:30 Plt Morphology Comment Not Reportable 01/10/17 04:30 RBC Morphology Not Reportable 01/10/17 04:30 Dimorphic RBCs Not Reportable 01/10/17 04:30 Polychromasia Not Reportable 01/10/17 04:30 Hypochromasia 1+ 01/10/17 04:30 Poikilocytosis Not Reportable 01/10/17 04:30 Anisocytosis Not Reportable 01/10/17 04:30 Microcytosis Not Reportable 01/10/17 04:30 Macrocytosis Not Reportable 01/10/17 04:30 Spherocytes Not Reportable 01/10/17 04:30 Pappenheimer Bodies Not Reportable 01/10/17 04:30 Sickle Cells Not Reportable 01/10/17 04:30 Target Cells Not Reportable 01/10/17 04:30 Tear Drop Cells Not Reportable 01/10/17 04:30 Ovalocytes Not Reportable 01/10/17 04:30 Helmet Cells Not Reportable 01/10/17 04:30 [place] Bodies Not Reportable 01/10/17 04:30 [place] Rings Not Reportable 01/10/17 04:30 [place] Cells Not Reportable 01/10/17 04:30 Bite Cells Not Reportable 01/10/17 04:30 Crenated Cell Not Reportable 01/10/17 04:30 Elliptocytes Not Reportable 01/10/17 04:30 Acanthocytes (Spur) Not Reportable 01/10/17 04:30 Rouleaux Not Reportable 01/10/17 04:30 Hemoglobin C Crystals Not Reportable 01/10/17 04:30 Schistocytes Not Reportable 01/10/17 04:30 Malaria parasites Not Reportable 01/10/17 04:30 [place] Bodies Not Reportable 01/10/17 04:30 Hem Pathologist Commnt No 01/10/17 04:30 PT 14.1 Sec. (12.2-14.9) 01/17/17 04:10 INR 1.04 (0.87-1.13) 01/17/17 04:10 APTT 36.6 Sec. (24.2-36.6) 01/17/17 04:10 POC ABG pH 7.485 (7.35-7.45) H 01/13/17 04:26 ABG pH 7.420 pH Units (7.350-7.450) 01/17/17 04:35 POC ABG pCO2 25.4 (35-45) L 01/13/17 04:26 ABG pCO2 34.5 mm Hg 01/17/17 04:35 POC ABG pO2 73 (80-105) L 01/13/17 04:26 ABG pO2 160.3 mm Hg (80.0-90.0) H 01/17/17 04:35 POC ABG HCO3 19.1 01/13/17 04:26 ABG HCO3 21.9 mmol/L (20.0-26.0) 01/17/17 04:35 POC ABG Total CO2 20 01/13/17 04:26 POC ABG O2 Sat 96 01/13/17 04:26 ABG O2 Saturation 99.0 % (95.0-99.0) 01/17/17 04:35 ABG O2 Content 11.1 (0.0-44) 01/17/17 04:35 POC ABG Base Excess -4 01/13/17 04:26 ABG Base Excess -2.3 mmol/L (-2.0-3.0) L 01/17/17 04:35 ABG Hemoglobin 7.9 gm/dl (14.0-18.0) L 01/17/17 04:35 ABG Carboxyhemoglobin 1.5 % (0.0-5.0) 01/17/17 04:35 ABG Methemoglobin 0.5 % (0.0-1.5) 01/17/17 04:35 VBG pH 7.284 (7.320-7.420) L 01/09/17 10:16 Oxyhemoglobin 97.1 % (95.0-99.0) 01/17/17 04:35 FiO2 30 % 01/17/17 04:35 Sodium 138 mmol/L (137-145) 01/31/17 04:39 Potassium 3.9 mmol/L (3.6-5.0) 01/31/17 04:39 Chloride 103.1 mmol/L (98-107) 01/31/17 04:39 Carbon Dioxide 23 mmol/L (22-30) 01/31/17 04:39 Anion Gap 16 mmol/L 01/31/17 04:39 BUN 17 mg/dL (9-20) 01/31/17 04:39 Creatinine 0.7 mg/dL (0.8-1.5) L 01/31/17 04:39 Estimated GFR > 60 ml/min 01/31/17 04:39 BUN/Creatinine Ratio 24 % 01/31/17 04:39 Glucose 223 mg/dL (75-100) H 01/31/17 04:39 POC Glucose 264 (70-105) H 01/31/17 05:57 Lactic Acid 0.80 mmol/L (0.7-2.0) 01/30/17 11:49 Calcium 8.6 mg/dL (8.4-10.2) 01/31/17 04:39 Phosphorus 3.60 mg/dL (2.5-4.5) 01/22/17 04:00 Magnesium 2.10 mg/dL (1.7-2.3) 01/22/17 04:00 Total Bilirubin 0.30 mg/dL (0.1-1.2) 01/22/17 04:00 AST 44 units/L (5-40) H 01/22/17 04:00 ALT 23 units/L (7-56) 01/22/17 04:00 Alkaline Phosphatase 379 units/L (35-129) H 01/22/17 04:00 Ammonia 35.0 umol/L (25-60) 01/09/17 10:16 Total Creatine Kinase 135 units/L (55-170) 01/09/17 10:16 CK-MB (CK-2) 7.1 ng/mL (0.0-4.0) H 01/09/17 10:16 CK-MB (CK-2) Rel Index 5.2 (0-4) H 01/09/17 10:16 Troponin T < 0.010 ng/mL (0.00-0.029) 01/09/17 10:16 NT-Pro-B Natriuret Pep 602.9 pg/mL (0-900) 01/09/17 10:16 Total Protein 7.9 g/dL (6.3-8.2) 01/22/17 04:00 Albumin 2.7 g/dL (3.9-5) L 01/22/17 04:00 Albumin/Globulin Ratio 0.5 % 01/22/17 04:00 TSH 52.800 mlU/mL (0.270-4.200) H 01/09/17 10:16 Free T4 0.78 ng/dL (0.76-1.46) 01/09/17 10: Total Cortisol 54.8 mcg/dL () 01/09/17 16:19 Urine Color Yellow (Yellow) 01/28/17 17:52 Urine Turbidity Clear (Clear) 01/28/17 17:52 Urine pH 6.0 (5.0-7.0) 01/28/17 17:52 Ur Specific [place] 1.016 (1.003-1.030) 01/28/17 17:52 Urine Protein 100 mg/dl mg/dL (Negative) 01/28/17 17:52 Urine Glucose (UA) >=500 mg/dL (Negative) 01/28/17 17:52 Urine Ketones Neg mg/dL (Negative) 01/28/17 17:52 Urine Blood Sm (Negative) 01/28/17 17:52 Urine Nitrite Neg (Negative) 01/28/17 17:52 Urine Bilirubin Neg (Negative) 01/28/17 17:52 Urine Urobilinogen < 2.0 mg/dL (<2.0) 01/28/17 17:52 Ur Leukocyte Esterase Lg (Negative) 01/28/17 17:52 Urine WBC (Auto) > 182.0 /HPF (0.0-6.0) H 01/28/17 17:52 Urine RBC (Auto) 113.0 /HPF (0.0-6.0) 01/28/17 17:52 Urine Bacteria (Auto) 2+ /HPF (Negative) 01/28/17 17:52 Urine WBC Clumps 3+ /HPF 01/28/17 17:52 Urine Mucus Few /HPF 10/06/17 14:07 Urine Yeast (Bud[place]) 3+ /HPF 01/14/17 14:07 Salicylates < 0.3 mg/dL (2.8-20.0) L 01/09/17 10:16 Urine Opiates Screen Presumptive negative 01/09/17 10:23 Urine Methadone Screen Presumptive negative 01/09/17 10:23 Acetaminophen < 15.0 ug/mL (10.0-30.0) 01/09/17 10:16 Ur Barbiturates Screen Presumptive negative 01/09/17 10:23 Ur Phencyclidine Scrn Presumptive negative 01/09/17 10:23 Ur Amphetamines Screen Presumptive negative 01/09/17 10:23 U Benzodiazepines Scrn Presumptive negative 01/09/17 10:23 Urine Cocaine Screen Presumptive negative 01/09/17 10:23 U Marijuana (THC) Screen Presumptive negative 01/09/17 10:23 Drugs of Abuse Note Disclamer 01/09/17 10:23 Plasma/Serum Alcohol < 0.01 gm% (0-0.07) 01/09/17 10:16
[2017-01-31] MEDS: SIMPLE SYRUP FEEDTUBE PRN (23:19)
[2017-02-01] MEDS: NOVOLOG SUB-Q SCH ×4 (01:20→17:37)
[2017-02-01] MEDS: VANCOMYCIN 750 MG in NACL 0.9% 250ML 250 ML IV SCH ×2 (01:29→14:04)
[2017-02-01 04:44] LABS: Hemoglobin 7.4 gm/dl (11.8-15.2); Red Blood Count 2.81 M/mm3 (3.65-5.03)
[2017-02-01 04:45] LABS: Hematocrit 22.1 % (35.5-45.6); Mean Corpuscular HGB Conc 34 % (32-34); Mean Corpuscular Hemoglobin 27 pg (28-32); Mean Corpuscular Volume 79 fl (84-94); Platelet Count 540 K/mm3 (140-440)
[2017-02-01 04:54] LABS: BUN/Creatinine Ratio 21; Blood Urea Nitrogen 15 mg/dL (9-20); Calcium 8.4 mg/dL (8.4-10.2); Hemolysis Index 11
[2017-02-01] MEDS: SYNTHROID PO SCH (05:18)
[2017-02-01] MEDS: ZOSYN/NS 4.5GM/100ML 4.5 GM/100 ML VIAL IV SCH ×3 (05:18→21:07)
[2017-02-01] MEDS: APRESOLINE IV PRN (06:23)
--- NOTE | 2017-02-01 08:33 | Progress Note ---
Assessment and Plan Assessment and plan: Hypoglycemic brain injury. Patient was found hypoglycemic. He is now in coma, vegetative state, Unresponsive Persistent vegetative state. Supportive care Metabolic encephalopathy due to hypoglycemia Hypoglycemia/hypothermia, resolved Acute respiratory failure. He has been on mechanical ventilator greater than 96 hours Hyponatremia. Now resolved. Sodium level 138 today Hypothyroidism Diabetes mellitus type 2. Check fingerstick glucose q 6h. Continue Levemir 10 Units subcut daily Hypertension. BP stable Leukocytosis due to UTI. To r/o sepsis Bacteremia with coagulase neg staph is 1 in 4 bottles, likely contamination Fever,recurrent improving. No more fever past 24 hrs. Urinalysis shows UTI. Started on Zosyn and Vancomycin., Urine culture To r/o sepsis UTI. ESBL. Urine culture shows Escherichia coli and Klebsiella pneumonia, both sensitive to Zosyn which he is taking. Continue Zosyn and Vancomycin Patient is DNR- awaiting hospice placement, needs guardianship from the state to give consent, as has no family to give consent History Interval history: Patient found unresponsive, diagnosed with hypoglycemia with brain injury, Still unresponsive, Still having recurrent fever, Hospitalist Physical - Physical exam Narrative exam: Gen Appearance: Not in acute distress, malnourished HEENT: normocephalic, atraumatic Neck: supple, no JVD Lungs: clear to auscultation bilaterally, no crackles or wheezes Heart: S1 and S2 regular, no murmurs, rubs or gallop Abdomen: Soft , non tender, non distended, normal bowel sounds Extremity: No edema, clubbing or cyanosis Neuro : Intubated, Unresponsive, vegetative state - Constitutional Vitals: Temp Pulse Resp BP Pulse Ox 99.6 F 72 17 133/61 100 02/01/17 03:15 02/01/17 08:00 02/01/17 08:00 02/01/17 07:00 02/01/17 07:59 General appearance: Present: severe distress Results - Labs CBC & Chem 7: 02/01/17 03:38 02/01/17 03:38 Labs: Laboratory Last Values WBC 9.9 K/mm3 (4.5-11.0) 02/01/17 03:38 RBC 2.81 M/mm3 (3.65-5.03) L 02/01/17 03:38 Hgb 7.4 gm/dl (11.8-15.2) L 02/01/17 03:38 Hct 22.1 % (35.5-45.6) L 02/01/17 03:38 MCV 79 fl (84-94) L 02/01/17 03:38 MCH 27 pg (28-32) L 02/01/17 03:38 MCHC 34 % (32-34) 02/01/17 03:38 RDW 17.0 % (13.2-15.2) H 02/01/17 03:38 Plt Count 540 K/mm3 (140-440) H 02/01/17 03:38 Lymph % (Auto) 34.4 % (13.4-35.0) 01/22/17 04:00 [place] % (Auto) 7.9 % (0.0-7.3) H 01/22/17 04:00 Eos % (Auto) 6.2 % (0.0-4.3) H 01/22/17 04:00 Baso % (Auto) 1.1 % (0.0-1.8) 01/22/17 04:00 Lymph # 1.8 K/mm3 (1.2-5.4) 01/22/17 04:00 [place] # 0.4 K/mm3 (0.0-0.8) 01/22/17 04:00 Eos # 0.3 K/mm3 (0.0-0.4) 01/22/17 04:00 Baso # 0.1 K/mm3 (0.0-0.1) 01/22/17 04:00 Add Manual Diff Complete 01/10/17 04:30 Total Counted 100 01/10/17 04:30 Seg Neutrophils % 50.4 % (40.0-70.0) 01/22/17 04:00 Seg Neuts % (Manual) 88.0 % (40.0-70.0) H 01/10/17 04:30 Band Neutrophils % 7.0 % 01/10/17 04:30 Lymphocytes % (Manual) 4.0 % (13.4-35.0) L 01/10/17 04:30 Reactive Lymphs % (Man) 0 % 01/10/17 04:30 Monocytes % (Manual) 1.0 % (0.0-7.3) 01/10/17 04:30 Eosinophils % (Manual) 0 % (0.0-4.3) 01/10/17 04:30 Basophils % (Manual) 0 % (0.0-1.8) 01/10/17 04:30 Metamyelocytes % 0 % 01/10/17 04:30 Myelocytes % 0 % 01/10/17 04:30 Promyelocytes % 0 % 01/10/17 04:30 Blast Cells % 0 % 01/10/17 04:30 Nucleated RBC % Not Reportable 01/10/17 04:30 Seg Neutrophils # 2.7 K/mm3 (1.8-7.7) 01/22/17 04:00 Seg Neutrophils # Man 21.2 K/mm3 (1.8-7.7) H 01/10/17 04:30 Band Neutrophils # 1.7 K/mm3 01/10/17 04:30 Lymphocytes # (Manual) 1.0 K/mm3 (1.2-5.4) L 01/10/17 04:30 Abs React Lymphs (Man) 0.0 K/mm3 01/10/17 04:30 Monocytes # (Manual) 0.2 K/mm3 (0.0-0.8) 01/10/17 04:30 Eosinophils # (Manual) 0.0 K/mm3 (0.0-0.4) 01/10/17 04:30 Basophils # (Manual) 0.0 K/mm3 (0.0-0.1) 01/10/17 04:30 Metamyelocytes # 0.0 K/mm3 01/10/17 04:30 Myelocytes # 0.0 K/mm3 01/10/17 04:30 Promyelocytes # 0.0 K/mm3 01/10/17 04:30 Blast Cells # 0.0 K/mm3 01/10/17 04:30 WBC Morphology Not Reportable 01/10/17 04:30 Hypersegmented Neuts Not Reportable 01/10/17 04:30 Hyposegmented Neuts Not Reportable 01/10/17 04:30 Hypogranular Neuts Not Reportable 01/10/17 04:30 Smudge Cells Not Reportable 01/10/17 04:30 Toxic Granulation Not Reportable 01/10/17 04:30 Toxic Vacuolation Not Reportable 01/10/17 04:30 Dohle Bodies Not Reportable 01/10/17 04:30 Pelger-Huet Anomaly Not Reportable 01/10/17 04:30 [place] Rods Not Reportable 01/10/17 04:30 Platelet Estimate Consistent w auto 01/10/17 04:30 Clumped Platelets Not Reportable 01/10/17 04:30 Plt Clumps, EDTA Not Reportable 01/10/17 04:30 Large Platelets Not Reportable 01/10/17 04:30 Giant Platelets Not Reportable 01/10/17 04:30 Platelet Satelliting Not Reportable 01/10/17 04:30 Plt Morphology Comment Not Reportable 01/10/17 04:30 RBC Morphology Not Reportable 01/10/17 04:30 Dimorphic RBCs Not Reportable 01/10/17 04:30 Polychromasia Not Reportable 01/10/17 04:30 Hypochromasia 1+ 01/10/17 04:30 Poikilocytosis Not Reportable 01/10/17 04:30 Anisocytosis Not Reportable 01/10/17 04:30 Microcytosis Not Reportable 01/10/17 04:30 Macrocytosis Not Reportable 01/10/17 04:30 Spherocytes Not Reportable 01/10/17 04:30 Pappenheimer Bodies Not Reportable 01/10/17 04:30 Sickle Cells Not Reportable 01/10/17 04:30 Target Cells Not Reportable 01/10/17 04:30 Tear Drop Cells Not Reportable 01/10/17 04:30 Ovalocytes Not Reportable 01/10/17 04:30 Helmet Cells Not Reportable 01/10/17 04:30 [place] Bodies Not Reportable 01/10/17 04:30 [place] Rings Not Reportable 01/10/17 04:30 [place] Cells Not Reportable 01/10/17 04:30 Bite Cells Not Reportable 01/10/17 04:30 Crenated Cell Not Reportable 01/10/17 04:30 Elliptocytes Not Reportable 01/10/17 04:30 Acanthocytes (Spur) Not Reportable 01/10/17 04:30 Rouleaux Not Reportable 01/10/17 04:30 Hemoglobin C Crystals Not Reportable 01/10/17 04:30 Schistocytes Not Reportable 01/10/17 04:30 Malaria parasites Not Reportable 01/10/17 04:30 [place] Bodies Not Reportable 01/10/17 04:30 Hem Pathologist Commnt No 01/10/17 04:30 PT 14.1 Sec. (12.2-14.9) 01/17/17 04:10 INR 1.04 (0.87-1.13) 01/17/17 04:10 APTT 36.6 Sec. (24.2-36.6) 01/17/17 04:10 POC ABG pH 7.442 (7.35-7.45) 01/31/17 18:55 ABG pH 7.420 pH Units (7.350-7.450) 01/17/17 04:35 POC ABG pCO2 32.8 (35-45) L 01/31/17 18:55 ABG pCO2 34.5 mm Hg 01/17/17 04:35 POC ABG pO2 82 (80-105) 01/31/17 18:55 ABG pO2 160.3 mm Hg (80.0-90.0) H 01/17/17 04:35 POC ABG HCO3 22.4 01/31/17 18:55 ABG HCO3 21.9 mmol/L (20.0-26.0) 01/17/17 04:35 POC ABG Total CO2 23 01/31/17 18:55 POC ABG O2 Sat 97 01/31/17 18:55 ABG O2 Saturation 99.0 % (95.0-99.0) 01/17/17 04:35 ABG O2 Content 11.1 (0.0-44) 01/17/17 04:35 POC ABG Base Excess -2 01/31/17 18:55 ABG Base Excess -2.3 mmol/L (-2.0-3.0) L 01/17/17 04:35 ABG Hemoglobin 7.9 gm/dl (14.0-18.0) L 01/17/17 04:35 ABG Carboxyhemoglobin 1.5 % (0.0-5.0) 01/17/17 04:35 ABG Methemoglobin 0.5 % (0.0-1.5) 01/17/17 04:35 VBG pH 7.284 (7.320-7.420) L 01/09/17 10:16 Oxyhemoglobin 97.1 % (95.0-99.0) 01/17/17 04:35 FiO2 25 % 01/31/17 18:55 Sodium 139 mmol/L (137-145) 02/01/17 03:38 Potassium 3.6 mmol/L (3.6-5.0) 02/01/17 03:38 Chloride 103.7 mmol/L (98-107) 02/01/17 03:38 Carbon Dioxide 21 mmol/L (22-30) L 02/01/17 03:38 Anion Gap 18 mmol/L 02/01/17 03:38 BUN 15 mg/dL (9-20) 02/01/17 03:38 Creatinine 0.7 mg/dL (0.8-1.5) L 02/01/17 03:38 Estimated GFR > 60 ml/min 02/01/17 03:38 BUN/Creatinine Ratio 21 % 02/01/17 03:38 Glucose 96 mg/dL (75-100) 02/01/17 03:38 POC Glucose 140 (70-105) H 02/01/17 05:17 Lactic Acid 0.80 mmol/L (0.7-2.0) 01/30/17 11:49 Calcium 8.4 mg/dL (8.4-10.2) 02/01/17 03:38 Phosphorus 3.60 mg/dL (2.5-4.5) 01/22/17 04:00 Magnesium 2.10 mg/dL (1.7-2.3) 01/22/17 04:00 Total Bilirubin 0.30 mg/dL (0.1-1.2) 01/22/17 04:00 AST 44 units/L (5-40) H 01/22/17 04:00 ALT 23 units/L (7-56) 01/22/17 04:00 Alkaline Phosphatase 379 units/L (35-129) H 01/22/17 04:00 Ammonia 35.0 umol/L (25-60) 01/09/17 10:16 Total Creatine Kinase 135 units/L (55-170) 01/09/17 10:16 CK-MB (CK-2) 7.1 ng/mL (0.0-4.0) H 01/09/17 10:16 CK-MB (CK-2) Rel Index 5.2 (0-4) H 01/09/17 10:16 Troponin T < 0.010 ng/mL (0.00-0.029) 01/09/17 10:16 NT-Pro-B Natriuret Pep 602.9 pg/mL (0-900) 01/09/17 10:16 Total Protein 7.9 g/dL (6.3-8.2) 01/22/17 04:00 Albumin 2.7 g/dL (3.9-5) L 01/22/17 04:00 Albumin/Globulin Ratio 0.5 % 01/22/17 04:00 TSH 52.800 mlU/mL (0.270-4.200) H 01/09/17 10:16 Free T4 0.78 ng/dL (0.76-1.46) 01/09/17 10:16 Total Cortisol 54.8 mcg/dL () 01/09/17 16:19 Urine Color Yellow (Yellow) 01/28/17 17:52 Urine Turbidity Clear (Clear) 01/28/17 17:52 Urine pH 6.0 (5.0-7.0) 01/28/17 17:52 Ur Specific [place] 1.016 (1.003-1.030) 01/28/17 17:52 Urine Protein 100 mg/dl mg/dL (Negative) 01/28/17 17:52 Urine Glucose (UA) >=500 mg/dL (Negative) 01/28/17 17:52 Urine Ketones Neg mg/dL (Negative) 01/28/17 17:52 Urine Blood Sm (Negative) 01/28/17 17:52 Urine Nitrite Neg (Negative) 01/28/17 17:52 Urine Bilirubin Neg (Negative) 01/28/17 17:52 Urine Urobilinogen < 2.0 mg/dL (<2.0) 01/28/17 17:52 Ur Leukocyte Esterase Lg (Negative) 01/28/17 17:52 Urine WBC (Auto) > 182.0 /HPF (0.0-6.0) H 01/28/17 17:52 Urine RBC (Auto) 113.0 /HPF (0.0-6.0) 01/28/17 17:52 Urine Bacteria (Auto) 2+ /HPF (Negative) 01/28/17 17:52 Urine WBC Clumps 3+ /HPF 01/28/17 17:52 Urine Mucus Few /HPF 01/14/17 14:07 Urine Yeast (Budding) 3+ /HPF 01/14/17 14:07 Salicylates < 0.3 mg/dL (2.8-20.0) L 01/09/17 10:16 Urine Opiates Screen Presumptive negative 01/09/17 10:23 Urine Methadone Screen Presumptive negative 01/09/17 10:23 Acetaminophen < 15.0 ug/mL (10.0-30.0) 01/09/17 10:16 Ur Barbiturates Screen Presumptive negative 01/09/17 10:23 Ur Phencyclidine Scrn Presumptive negative 01/09/17 10:23 Ur Amphetamines Screen Presumptive negative 01/09/17 10:23 U Benzodiazepines Scrn Presumptive negative 01/09/17 10:23 Urine Cocaine Screen Presumptive negative 01/09/17 10:23 U Marijuana (THC) Screen Presumptive negative 01/09/17 10:23 Drugs of Abuse Note Disclamer 01/09/17 10:23 Plasma/Serum Alcohol < 0.01 gm% (0-0.07) 01/09/17 10:16
--- NOTE | 2017-02-01 08:52 | Progress Note ---
Assessment and Plan Acute respiratory failure, hypoxia. Unable to wean patient due to baseline neurological status changes. Fever. ESBL in urine. On Zosyn,vancomycin.+ peripheral cultures/mixed. Hypoglycemia/hypothermia - Metabolic encephalopathy. Severe. Poor EEG response/tracing, per neurology. 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 Hypothyroidism; doubt myxedema coma UTI/SIRS Recommendations Discontinue Amaya and changed to condom Amaya due to ESBL Continue SBT If no decision regarding guardianship of the patient, will again recommend tracheotomy and to complete weaning of ventilatory support optical engineering manager/administration work on placement Guarded to poor prognosis; complex patient Critical care time with a 31 minutes of [id number] evaluation and coordination of care Subjective Date of service: 02/01/17 Principal diagnosis: Acute respiratory failure,encephalopathy Interval history: Patient intubated,non responsive Objective Vital Signs - 12hr 01/31/17 01/31/17 01/31/17 21:00 21:54 22:00 Temperature Pulse Rate 78 75 79 Respiratory 14 18 Rate Blood Pressure 124/68 117/65 128/68 O2 Sat by Pulse 100 99 Oximetry 01/31/17 01/31/17 01/31/17 22:32 22:39 23:00 Temperature 100.7 F H Pulse Rate 74 74 Respiratory 17 19 Rate Blood Pressure 128/68 108/61 O2 Sat by Pulse 100 99 Oximetry 02/01/17 02/01/17 02/01/17 00:00 01:00 02:00 Temperature Pulse Rate 71 69 68 Respiratory 21 15 19 Rate Blood Pressure 114/63 134/65 134/69 O2 Sat by Pulse 100 99 100 Oximetry 02/01/17 02/01/17 02/01/17 03:00 03:15 04:00 Temperature 99.6 F Pulse Rate 67 74 Respiratory 17 21 Rate Blood Pressure 142/70 139/76 O2 Sat by Pulse 100 100 Oximetry 02/01/17 02/01/17 02/01/17 05:00 05:06 06:00 Temperature Pulse Rate 72 72 69 Respiratory 19 14 Rate Blood Pressure 139/76 187/77 182/77 O2 Sat by Pulse 99 100 100 Oximetry 02/01/17 02/01/17 02/01/17 06:23 07:00 07:59 Temperature Pulse Rate 69 70 Respiratory 14 Rate Blood Pressure 178/76 133/61 O2 Sat by Pulse 99 100 Oximetry 02/01/17 08:00 Temperature Pulse Rate 72 Respiratory 17 Rate Blood Pressure O2 Sat by Pulse Oximetry Constitutional: no acute distress, comatose, other (orally intubated, on vent) Eyes: non-icteric ENT: oropharynx moist Neck: supple, no JVD Effort: normal Ascultation: Bilateral: clear, diminished breath sounds Cardiovascular: regular rate and rhythm Gastrointestinal: normoactive bowel sounds, soft, non-tender, non-distended Integumentary: normal Extremities: no cyanosis, no edema, pink and warm Neurologic: non-focal exam, pupils equal and round, other (no response to pain. ) Psychiatric: other (unable to obtain) CBC and BMP: 02/01/17 03:38 02/01/17 03:38 ABG, PT/INR, D-dimer: ABG POC ABG pH 7.442 (7.35-7.45) 01/31/17 18:55 ABG pH 7.420 pH Units (7.350-7.450) 01/17/17 04:35 POC ABG pCO2 32.8 (35-45) L 01/31/17 18:55 ABG pCO2 34.5 mm Hg 01/17/17 04:35 POC ABG pO2 82 (80-105) 01/31/17 18:55 ABG pO2 160.3 mm Hg (80.0-90.0) H 01/17/17 04:35 POC ABG HCO3 22.4 01/31/17 18:55 POC ABG Total CO2 23 01/31/17 18:55 POC ABG O2 Sat 97 01/31/17 18:55 ABG O2 Saturation 99.0 % (95.0-99.0) 01/17/17 04:35 PT/INR, D-dimer PT 14.1 Sec. (12.2-14.9) 01/17/17 04:10 INR 1.04 (0.87-1.13) 01/17/17 04:10 Abnormal lab findings: Abnormal Labs 01/09/17 01/09/17 01/09/17 12:49 13:13 14:21 WBC RBC Hgb Hct MCV MCH RDW Plt Count Lymph % (Auto) [place] % (Auto) Eos % (Auto) Seg Neutrophils % Seg Neuts % (Manual) Lymphocytes % (Manual) Seg Neutrophils # Seg Neutrophils # Man Lymphocytes # (Manual) POC ABG pH ABG pH POC ABG pCO2 POC ABG pO2 ABG pO2 ABG HCO3 ABG Base Excess ABG Hemoglobin Oxyhemoglobin Sodium Potassium Chloride Carbon Dioxide BUN Creatinine Glucose POC Glucose < 40 L 128 H 65 L Lactic Acid Calcium AST Alkaline Phosphatase Albumin Urine WBC (Auto) 01/09/17 01/09/17 01/09/17 15:09 16:28 17:14 WBC RBC Hgb Hct MCV MCH RDW Plt Count Lymph % (Auto) [place] % (Auto) Eos % (Auto) Seg Neutrophils % Seg Neuts % (Manual) Lymphocytes % (Manual) Seg Neutrophils # Seg Neutrophils # Man Lymphocytes # (Manual) POC ABG pH ABG pH POC ABG pCO2 POC ABG pO2 ABG pO2 ABG HCO3 ABG Base Excess ABG Hemoglobin Oxyhemoglobin Sodium Potassium Chloride Carbon Dioxide BUN Creatinine Glucose POC Glucose 120 H 44 L 112 H Lactic Acid Calcium AST Alkaline Phosphatase Albumin Urine WBC (Auto) 01/10/17 01/10/17 01/10/17 04:30 04:30 05:41 WBC 24.1 H RBC 3.38 L Hgb 8.5 L Hct 26.0 L MCV 77 L MCH 25 L RDW 17.9 H Plt Count 474 H Lymph % (Auto) [place] % (Auto) Eos % (Auto) Seg Neutrophils % Seg Neuts % (Manual) 88.0 H Lymphocytes % (Manual) 4.0 L Seg Neutrophils # Seg Neutrophils # Man 21.2 H Lymphocytes # (Manual) 1.0 L POC ABG pH ABG pH POC ABG pCO2 POC ABG pO2 ABG pO2 ABG HCO3 ABG Base Excess ABG Hemoglobin Oxyhemoglobin Sodium Potassium Chloride Carbon Dioxide 17 L BUN 27 H Creatinine Glucose POC Glucose 68 L Lactic Acid Calcium 7.5 L AST Alkaline Phosphatase Albumin Urine WBC (Auto) 01/10/17 01/10/17 01/10/17 05:45 07:47 10:50 WBC RBC Hgb Hct MCV MCH RDW Plt Count Lymph % (Auto) [place] % (Auto) Eos % (Auto) Seg Neutrophils % Seg Neuts % (Manual) Lymphocytes % (Manual) Seg Neutrophils # Seg Neutrophils # Man Lymphocytes # (Manual) POC ABG pH ABG pH POC ABG pCO2 26.6 L POC ABG pO2 207 H ABG pO2 ABG HCO3 ABG Base Excess ABG Hemoglobin Oxyhemoglobin Sodium Potassium Chloride Carbon Dioxide BUN Creatinine Glucose POC Glucose 148 H 165 H Lactic Acid Calcium AST Alkaline Phosphatase Albumin Urine WBC (Auto) 01/10/17 01/10/17 01/10/17 13:41 20:20 21:39 WBC RBC Hgb Hct MCV MCH RDW Plt Count Lymph % (Auto) [place] % (Auto) Eos % (Auto) Seg Neutrophils % Seg Neuts % (Manual) Lymphocytes % (Manual) Seg Neutrophils # Seg Neutrophils # Man Lymphocytes # (Manual) POC ABG pH ABG pH POC ABG pCO2 POC ABG pO2 ABG pO2 ABG HCO3 ABG Base Excess ABG Hemoglobin Oxyhemoglobin Sodium Potassium Chloride Carbon Dioxide BUN Creatinine Glucose POC Glucose 114 H 150 H 175 H Lactic Acid Calcium AST Alkaline Phosphatase Albumin Urine WBC (Auto) 01/10/17 01/11/17 01/11/17 23:24 00:19 04:06 WBC RBC Hgb Hct MCV MCH RDW Plt Count Lymph % (Auto) [place] % (Auto) Eos % (Auto) Seg Neutrophils % Seg Neuts % (Manual) Lymphocytes % (Manual) Seg Neutrophils # Seg Neutrophils # Man Lymphocytes # (Manual) POC ABG pH 7.463 H ABG pH POC ABG pCO2 26.2 L POC ABG pO2 185 H ABG pO2 ABG HCO3 ABG Base Excess ABG Hemoglobin Oxyhemoglobin Sodium Potassium Chloride Carbon Dioxide BUN Creatinine Glucose POC Glucose 155 H 163 H Lactic Acid Calcium AST Alkaline Phosphatase Albumin Urine WBC (Auto) 01/11/17 01/11/17 01/11/17 05:20 05:20 06:21 WBC 15.2 H RBC 3.40 L Hgb 8.9 L Hct 26.3 L MCV 78 L MCH 26 L RDW 18.6 H Plt Count 462 H Lymph % (Auto) 13.2 L [place] % (Auto) Eos % (Auto) Seg Neutrophils % 80.8 H Seg Neuts % (Manual) Lymphocytes % (Manual) Seg Neutrophils # 12.3 H Seg Neutrophils # Man Lymphocytes # (Manual) POC ABG pH ABG pH POC ABG pCO2 POC ABG pO2 ABG pO2 ABG HCO3 ABG Base Excess ABG Hemoglobin Oxyhemoglobin Sodium Potassium 3.4 L Chloride 111.5 H Carbon Dioxide 17 L BUN Creatinine Glucose 147 H POC Glucose 139 H Lactic Acid Calcium 8.0 L AST Alkaline Phosphatase Albumin Urine WBC (Auto) 01/11/17 01/11/17 01/11/17 07:57 11:46 16:50 WBC RBC Hgb Hct MCV MCH RDW Plt Count Lymph % (Auto) [place] % (Auto) Eos % (Auto) Seg Neutrophils % Seg Neuts % (Manual) Lymphocytes % (Manual) Seg Neutrophils # Seg Neutrophils # Man Lymphocytes # (Manual) POC ABG pH ABG pH POC ABG pCO2 POC ABG pO2 ABG pO2 ABG HCO3 ABG Base Excess ABG Hemoglobin Oxyhemoglobin Sodium Potassium Chloride Carbon Dioxide BUN Creatinine Glucose POC Glucose 188 H 199 H 235 H Lactic Acid Calcium AST Alkaline Phosphatase Albumin Urine WBC (Auto) 01/11/17 01/12/17 01/12/17 23:15 05:02 06:56 WBC RBC Hgb Hct MCV MCH RDW Plt Count Lymph % (Auto) [place] % (Auto) Eos % (Auto) Seg Neutrophils % Seg Neuts % (Manual) Lymphocytes % (Manual) Seg Neutrophils # Seg Neutrophils # Man Lymphocytes # (Manual) POC ABG pH ABG pH POC ABG pCO2 28.0 L POC ABG pO2 178 H ABG pO2 ABG HCO3 ABG Base Excess ABG Hemoglobin Oxyhemoglobin Sodium Potassium Chloride Carbon Dioxide BUN Creatinine Glucose POC Glucose 155 H 119 H Lactic Acid Calcium AST Alkaline Phosphatase Albumin Urine WBC (Auto) 01/12/17 01/13/17 01/13/17 14:50 03:37 03:37 WBC RBC 3.61 L Hgb 9.3 L Hct 28.0 L MCV 78 L MCH 26 L RDW 18.2 H Plt Count Lymph % (Auto) [place] % (Auto) Eos % (Auto) Seg Neutrophils % Seg Neuts % (Manual) Lymphocytes % (Manual) Seg Neutrophils # Seg Neutrophils # Man Lymphocytes # (Manual) POC ABG pH ABG pH POC ABG pCO2 POC ABG pO2 ABG pO2 ABG HCO3 ABG Base Excess ABG Hemoglobin Oxyhemoglobin Sodium Potassium Chloride 112.4 H Carbon Dioxide 19 L BUN Creatinine Glucose 118 H POC Glucose 164 H Lactic Acid Calcium 8.0 L AST Alkaline Phosphatase Albumin Urine WBC (Auto) 01/13/17 01/13/17 01/13/17 04:26 06:15 11:50 WBC RBC Hgb Hct MCV MCH RDW Plt Count Lymph % (Auto) [place] % (Auto) Eos % (Auto) Seg Neutrophils % Seg Neuts % (Manual) Lymphocytes % (Manual) Seg Neutrophils # Seg Neutrophils # Man Lymphocytes # (Manual) POC ABG pH 7.485 H ABG pH POC ABG pCO2 25.4 L POC ABG pO2 73 L ABG pO2 ABG HCO3 ABG Base Excess ABG Hemoglobin Oxyhemoglobin Sodium Potassium Chloride Carbon Dioxide BUN Creatinine Glucose POC Glucose 116 H 171 H Lactic Acid Calcium AST Alkaline Phosphatase Albumin Urine WBC (Auto) 01/13/17 01/14/17 01/14/17 17:31 00:02 04:50 WBC RBC 3.32 L Hgb 8.5 L Hct 26.1 L MCV 79 L MCH 26 L RDW 18.2 H Plt Count Lymph % (Auto) [place] % (Auto) 9.0 H Eos % (Auto) Seg Neutrophils % Seg Neuts % (Manual) Lymphocytes % (Manual) Seg Neutrophils # Seg Neutrophils # Man Lymphocytes # (Manual) POC ABG pH ABG pH POC ABG pCO2 POC ABG pO2 ABG pO2 ABG HCO3 ABG Base Excess ABG Hemoglobin Oxyhemoglobin Sodium Potassium Chloride Carbon Dioxide BUN Creatinine Glucose POC Glucose 203 H 157 H Lactic Acid Calcium AST Alkaline Phosphatase Albumin Urine WBC (Auto) 01/14/17 01/14/17 01/14/17 04:50 05:10 11:27 WBC RBC Hgb Hct MCV MCH RDW Plt Count Lymph % (Auto) [place] % (Auto) Eos % (Auto) Seg Neutrophils % Seg Neuts % (Manual) Lymphocytes % (Manual) Seg Neutrophils # Seg Neutrophils # Man Lymphocytes # (Manual) POC ABG pH ABG pH POC ABG pCO2 POC ABG pO2 ABG pO2 ABG HCO3 ABG Base Excess ABG Hemoglobin Oxyhemoglobin Sodium Potassium Chloride 112.5 H Carbon Dioxide BUN Creatinine Glucose 149 H POC Glucose 176 H 147 H Lactic Acid Calcium 8.1 L AST Alkaline Phosphatase Albumin Urine WBC (Auto) 01/14/17 01/14/17 01/15/17 14:07 16:52 00:04 WBC RBC Hgb Hct MCV MCH RDW Plt Count Lymph % (Auto) [place] % (Auto) Eos % (Auto) Seg Neutrophils % Seg Neuts % (Manual) Lymphocytes % (Manual) Seg Neutrophils # Seg Neutrophils # Man Lymphocytes # (Manual) POC ABG pH ABG pH POC ABG pCO2 POC ABG pO2 ABG pO2 ABG HCO3 ABG Base Excess ABG Hemoglobin Oxyhemoglobin Sodium Potassium Chloride Carbon Dioxide BUN Creatinine Glucose POC Glucose 131 H 193 H Lactic Acid Calcium AST Alkaline Phosphatase Albumin Urine WBC (Auto) 53.0 H 01/15/17 01/15/17 01/15/17 05:26 11:49 17:47 WBC RBC Hgb Hct MCV MCH RDW Plt Count Lymph % (Auto) [place] % (Auto) Eos % (Auto) Seg Neutrophils % Seg Neuts % (Manual) Lymphocytes % (Manual) Seg Neutrophils # Seg Neutrophils # Man Lymphocytes # (Manual) POC ABG pH ABG pH POC ABG pCO2 POC ABG pO2 ABG pO2 ABG HCO3 ABG Base Excess ABG Hemoglobin Oxyhemoglobin Sodium Potassium Chloride Carbon Dioxide BUN Creatinine Glucose POC Glucose 215 H 121 H 211 H Lactic Acid Calcium AST Alkaline Phosphatase Albumin Urine WBC (Auto) 01/15/17 01/16/17 01/16/17 21:33 04:30 05:28 WBC RBC Hgb Hct MCV MCH RDW Plt Count Lymph % (Auto) [place] % (Auto) Eos % (Auto) Seg Neutrophils % Seg Neuts % (Manual) Lymphocytes % (Manual) Seg Neutrophils # Seg Neutrophils # Man Lymphocytes # (Manual) POC ABG pH ABG pH 7.457 H POC ABG pCO2 POC ABG pO2 ABG pO2 55.1 L ABG HCO3 19.4 L ABG Base Excess -4.0 L ABG Hemoglobin 6.8 L Oxyhemoglobin 94.9 L Sodium Potassium Chloride Carbon Dioxide BUN Creatinine Glucose POC Glucose 275 H 271 H Lactic Acid Calcium AST Alkaline Phosphatase Albumin Urine WBC (Auto) 01/16/17 01/16/17 01/17/17 13:45 21:39 04:10 WBC 4.4 L RBC 2.98 L Hgb 7.7 L Hct 23.3 L MCV 78 L MCH 26 L RDW 18.1 H Plt Count Lymph % (Auto) [place] % (Auto) Eos % (Auto) Seg Neutrophils % Seg Neuts % (Manual) Lymphocytes % (Manual) Seg Neutrophils # Seg Neutrophils # Man Lymphocytes # (Manual) POC ABG pH ABG pH POC ABG pCO2 POC ABG pO2 ABG pO2 ABG HCO3 ABG Base Excess ABG Hemoglobin Oxyhemoglobin Sodium Potassium Chloride Carbon Dioxide BUN Creatinine Glucose POC Glucose 236 H 258 H Lactic Acid Calcium AST Alkaline Phosphatase Albumin Urine WBC (Auto) 01/17/17 01/17/17 01/17/17 04:10 04:35 12:23 WBC RBC Hgb Hct MCV MCH RDW Plt Count Lymph % (Auto) [place] % (Auto) Eos % (Auto) Seg Neutrophils % Seg Neuts % (Manual) Lymphocytes % (Manual) Seg Neutrophils # Seg Neutrophils # Man Lymphocytes # (Manual) POC ABG pH ABG pH POC ABG pCO2 POC ABG pO2 ABG pO2 160.3 H ABG HCO3 ABG Base Excess -2.3 L ABG Hemoglobin 7.9 L Oxyhemoglobin Sodium Potassium 3.3 L Chloride 108.7 H Carbon Dioxide 20 L BUN 8 L Creatinine Glucose 202 H POC Glucose 321 H Lactic Acid Calcium 7.6 L AST Alkaline Phosphatase Albumin Urine WBC (Auto) 01/17/17 01/18/17 01/18/17 16:01 05:07 12:09 WBC RBC Hgb Hct MCV MCH RDW Plt Count Lymph % (Auto) [place] % (Auto) Eos % (Auto) Seg Neutrophils % Seg Neuts % (Manual) Lymphocytes % (Manual) Seg Neutrophils # Seg Neutrophils # Man Lymphocytes # (Manual) POC ABG pH ABG pH POC ABG pCO2 POC ABG pO2 ABG pO2 ABG HCO3 ABG Base Excess ABG Hemoglobin Oxyhemoglobin Sodium Potassium Chloride Carbon Dioxide BUN Creatinine Glucose POC Glucose 239 H 155 H 203 H Lactic Acid Calcium AST Alkaline Phosphatase Albumin Urine WBC (Auto) 01/18/17 01/18/17 01/19/17 17:54 23:43 04:28 WBC RBC Hgb Hct MCV MCH RDW Plt Count Lymph % (Auto) [place] % (Auto) Eos % (Auto) Seg Neutrophils % Seg Neuts % (Manual) Lymphocytes % (Manual) Seg Neutrophils # Seg Neutrophils # Man Lymphocytes # (Manual) POC ABG pH ABG pH POC ABG pCO2 POC ABG pO2 ABG pO2 ABG HCO3 ABG Base Excess ABG Hemoglobin Oxyhemoglobin Sodium Potassium Chloride Carbon Dioxide BUN Creatinine Glucose POC Glucose 132 H 125 H 182 H Lactic Acid Calcium AST Alkaline Phosphatase Albumin Urine WBC (Auto) 01/19/17 01/19/17 01/20/17 12:11 17:23 00:12 WBC RBC Hgb Hct MCV MCH RDW Plt Count Lymph % (Auto) [place] % (Auto) Eos % (Auto) Seg Neutrophils % Seg Neuts % (Manual) Lymphocytes % (Manual) Seg Neutrophils # Seg Neutrophils # Man Lymphocytes # (Manual) POC ABG pH ABG pH POC ABG pCO2 POC ABG pO2 ABG pO2 ABG HCO3 ABG Base Excess ABG Hemoglobin Oxyhemoglobin Sodium Potassium Chloride Carbon Dioxide BUN Creatinine Glucose POC Glucose 153 H 66 L 139 H Lactic Acid Calcium AST Alkaline Phosphatase Albumin Urine WBC (Auto) 01/20/17 01/20/17 01/20/17 05:44 11:48 17:42 WBC RBC Hgb Hct MCV MCH RDW Plt Count Lymph % (Auto) [place] % (Auto) Eos % (Auto) Seg Neutrophils % Seg Neuts % (Manual) Lymphocytes % (Manual) Seg Neutrophils # Seg Neutrophils # Man Lymphocytes # (Manual) POC ABG pH ABG pH POC ABG pCO2 POC ABG pO2 ABG pO2 ABG HCO3 ABG Base Excess ABG Hemoglobin Oxyhemoglobin Sodium Potassium Chloride Carbon Dioxide BUN Creatinine Glucose POC Glucose 176 H 218 H 132 H Lactic Acid Calcium AST Alkaline Phosphatase Albumin Urine WBC (Auto) 01/20/17 01/21/17 01/21/17 23:43 05:34 11:17 WBC RBC Hgb Hct MCV MCH RDW Plt Count Lymph % (Auto) [place] % (Auto) Eos % (Auto) Seg Neutrophils % Seg Neuts % (Manual) Lymphocytes % (Manual) Seg Neutrophils # Seg Neutrophils # Man Lymphocytes # (Manual) POC ABG pH ABG pH POC ABG pCO2 POC ABG pO2 ABG pO2 ABG HCO3 ABG Base Excess ABG Hemoglobin Oxyhemoglobin Sodium Potassium Chloride Carbon Dioxide BUN Creatinine Glucose POC Glucose 178 H 106 H 213 H Lactic Acid Calcium AST Alkaline Phosphatase Albumin Urine WBC (Auto) 01/21/17 01/22/17 01/22/17 23:37 04:00 04:00 WBC RBC 3.26 L Hgb 8.3 L Hct 25.5 L MCV 78 L MCH 25 L RDW 17.9 H Plt Count Lymph % (Auto) [place] % (Auto) 7.9 H Eos % (Auto) 6.2 H Seg Neutrophils % Seg Neuts % (Manual) Lymphocytes % (Manual) Seg Neutrophils # Seg Neutrophils # Man Lymphocytes # (Manual) POC ABG pH ABG pH POC ABG pCO2 POC ABG pO2 ABG pO2 ABG HCO3 ABG Base Excess ABG Hemoglobin Oxyhemoglobin Sodium Potassium Chloride 95.5 L Carbon Dioxide 31 H D BUN Creatinine Glucose 134 H POC Glucose 140 H Lactic Acid Calcium AST 44 H Alkaline Phosphatase 379 H Albumin 2.7 L Urine WBC (Auto) 01/22/17 01/22/17 01/22/17 04:58 12:12 18:12 WBC RBC Hgb Hct MCV MCH RDW Plt Count Lymph % (Auto) [place] % (Auto) Eos % (Auto) Seg Neutrophils % Seg Neuts % (Manual) Lymphocytes % (Manual) Seg Neutrophils # Seg Neutrophils # Man Lymphocytes # (Manual) POC ABG pH ABG pH POC ABG pCO2 POC ABG pO2 ABG pO2 ABG HCO3 ABG Base Excess ABG Hemoglobin Oxyhemoglobin Sodium Potassium Chloride Carbon Dioxide BUN Creatinine Glucose POC Glucose 146 H 255 H 182 H Lactic Acid Calcium AST Alkaline Phosphatase Albumin Urine WBC (Auto) 01/22/17 01/23/17 01/23/17 23:39 04:43 12:12 WBC RBC Hgb Hct MCV MCH RDW Plt Count Lymph % (Auto) [place] % (Auto) Eos % (Auto) Seg Neutrophils % Seg Neuts % (Manual) Lymphocytes % (Manual) Seg Neutrophils # Seg Neutrophils # Man Lymphocytes # (Manual) POC ABG pH ABG pH POC ABG pCO2 POC ABG pO2 ABG pO2 ABG HCO3 ABG Base Excess ABG Hemoglobin Oxyhemoglobin Sodium Potassium Chloride Carbon Dioxide BUN Creatinine Glucose POC Glucose 134 H 218 H 128 H Lactic Acid Calcium AST Alkaline Phosphatase Albumin Urine WBC (Auto) 01/23/17 01/24/17 01/24/17 17:36 00:08 05:16 WBC RBC Hgb Hct MCV MCH RDW Plt Count Lymph % (Auto) [place] % (Auto) Eos % (Auto) Seg Neutrophils % Seg Neuts % (Manual) Lymphocytes % (Manual) Seg Neutrophils # Seg Neutrophils # Man Lymphocytes # (Manual) POC ABG pH ABG pH POC ABG pCO2 POC ABG pO2 ABG pO2 ABG HCO3 ABG Base Excess ABG Hemoglobin Oxyhemoglobin Sodium Potassium Chloride Carbon Dioxide BUN Creatinine Glucose POC Glucose 156 H 129 H 169 H Lactic Acid Calcium AST Alkaline Phosphatase Albumin Urine WBC (Auto) 01/24/17 01/24/17 01/24/17 11:40 17:43 23:23 WBC RBC Hgb Hct MCV MCH RDW Plt Count Lymph % (Auto) [place] % (Auto) Eos % (Auto) Seg Neutrophils % Seg Neuts % (Manual) Lymphocytes % (Manual) Seg Neutrophils # Seg Neutrophils # Man Lymphocytes # (Manual) POC ABG pH ABG pH POC ABG pCO2 POC ABG pO2 ABG pO2 ABG HCO3 ABG Base Excess ABG Hemoglobin Oxyhemoglobin Sodium Potassium Chloride Carbon Dioxide BUN Creatinine Glucose POC Glucose 187 H 215 H 222 H Lactic Acid Calcium AST Alkaline Phosphatase Albumin Urine WBC (Auto) 01/25/17 01/25/17 01/25/17 04:56 11:52 17:37 WBC RBC Hgb Hct MCV MCH RDW Plt Count Lymph % (Auto) [place] % (Auto) Eos % (Auto) Seg Neutrophils % Seg Neuts % (Manual) Lymphocytes % (Manual) Seg Neutrophils # Seg Neutrophils # Man Lymphocytes # (Manual) POC ABG pH ABG pH POC ABG pCO2 POC ABG pO2 ABG pO2 ABG HCO3 ABG Base Excess ABG Hemoglobin Oxyhemoglobin Sodium Potassium Chloride Carbon Dioxide BUN Creatinine Glucose POC Glucose 210 H 284 H 218 H Lactic Acid Calcium AST Alkaline Phosphatase Albumin Urine WBC (Auto) 01/26/17 01/26/17 01/26/17 00:02 05:33 12:17 WBC RBC Hgb Hct MCV MCH RDW Plt Count Lymph % (Auto) [place] % (Auto) Eos % (Auto) Seg Neutrophils % Seg Neuts % (Manual) Lymphocytes % (Manual) Seg Neutrophils # Seg Neutrophils # Man Lymphocytes # (Manual) POC ABG pH ABG pH POC ABG pCO2 POC ABG pO2 ABG pO2 ABG HCO3 ABG Base Excess ABG Hemoglobin Oxyhemoglobin Sodium Potassium Chloride Carbon Dioxide BUN Creatinine Glucose POC Glucose 192 H 199 H 227 H Lactic Acid Calcium AST Alkaline Phosphatase Albumin Urine WBC (Auto) 01/26/17 01/26/17 01/27/17 17:50 23:57 05:31 WBC RBC Hgb Hct MCV MCH RDW Plt Count Lymph % (Auto) [place] % (Auto) Eos % (Auto) Seg Neutrophils % Seg Neuts % (Manual) Lymphocytes % (Manual) Seg Neutrophils # Seg Neutrophils # Man Lymphocytes # (Manual) POC ABG pH ABG pH POC ABG pCO2 POC ABG pO2 ABG pO2 ABG HCO3 ABG Base Excess ABG Hemoglobin Oxyhemoglobin Sodium Potassium Chloride Carbon Dioxide BUN Creatinine Glucose POC Glucose 229 H 186 H 285 H Lactic Acid Calcium AST Alkaline Phosphatase Albumin Urine WBC (Auto) 01/27/17 01/27/17 01/27/17 11:42 17:47 23:58 WBC RBC Hgb Hct MCV MCH RDW Plt Count Lymph % (Auto) [place] % (Auto) Eos % (Auto) Seg Neutrophils % Seg Neuts % (Manual) Lymphocytes % (Manual) Seg Neutrophils # Seg Neutrophils # Man Lymphocytes # (Manual) POC ABG pH ABG pH POC ABG pCO2 POC ABG pO2 ABG pO2 ABG HCO3 ABG Base Excess ABG Hemoglobin Oxyhemoglobin Sodium Potassium Chloride Carbon Dioxide BUN Creatinine Glucose POC Glucose 260 H 329 H 225 H Lactic Acid Calcium AST Alkaline Phosphatase Albumin Urine WBC (Auto) 01/27/17 01/27/17 01/28/17 Unknown Unknown 03:44 WBC 12.1 H RBC 3.28 L 3.14 L Hgb 8.5 L 8.2 L Hct 25.5 L 24.1 L MCV 78 L 77 L MCH 26 L 26 L RDW 16.8 H 16.9 H Plt Count 601 H 567 H Lymph % (Auto) [place] % (Auto) Eos % (Auto) Seg Neutrophils % Seg Neuts % (Manual) Lymphocytes % (Manual) Seg Neutrophils # Seg Neutrophils # Man Lymphocytes # (Manual) POC ABG pH ABG pH POC ABG pCO2 POC ABG pO2 ABG pO2 ABG HCO3 ABG Base Excess ABG Hemoglobin Oxyhemoglobin Sodium 128 L Potassium 5.4 H Chloride 87.5 L Carbon Dioxide BUN 44 H Creatinine Glucose 250 H POC Glucose Lactic Acid Calcium AST Alkaline Phosphatase Albumin Urine WBC (Auto) 01/28/17 01/28/17 01/28/17 03:44 11:43 16:47 WBC RBC Hgb Hct MCV MCH RDW Plt Count Lymph % (Auto) [place] % (Auto) Eos % (Auto) Seg Neutrophils % Seg Neuts % (Manual) Lymphocytes % (Manual) Seg Neutrophils # Seg Neutrophils # Man Lymphocytes # (Manual) POC ABG pH ABG pH POC ABG pCO2 POC ABG pO2 ABG pO2 ABG HCO3 ABG Base Excess ABG Hemoglobin Oxyhemoglobin Sodium Potassium Chloride Carbon Dioxide BUN 42 H Creatinine Glucose 128 H POC Glucose 351 H 249 H Lactic Acid Calcium AST Alkaline Phosphatase Albumin Urine WBC (Auto) 01/28/17 01/29/17 01/29/17 17:52 05:25 05:25 WBC 13.6 H RBC 3.25 L Hgb 8.3 L Hct 25.1 L MCV 77 L MCH 26 L RDW 16.8 H Plt Count 514 H Lymph % (Auto) [place] % (Auto) Eos % (Auto) Seg Neutrophils % Seg Neuts % (Manual) Lymphocytes % (Manual) Seg Neutrophils # Seg Neutrophils # Man Lymphocytes # (Manual) POC ABG pH ABG pH POC ABG pCO2 POC ABG pO2 ABG pO2 ABG HCO3 ABG Base Excess ABG Hemoglobin Oxyhemoglobin Sodium Potassium Chloride 97.8 L Carbon Dioxide BUN 34 H Creatinine Glucose 222 H POC Glucose Lactic Acid Calcium AST Alkaline Phosphatase Albumin Urine WBC (Auto) > 182.0 H 01/29/17 01/29/17 01/29/17 09:32 11:56 18:11 WBC RBC Hgb Hct MCV MCH RDW Plt Count Lymph % (Auto) [place] % (Auto) Eos % (Auto) Seg Neutrophils % Seg Neuts % (Manual) Lymphocytes % (Manual) Seg Neutrophils # Seg Neutrophils # Man Lymphocytes # (Manual) POC ABG pH ABG pH POC ABG pCO2 POC ABG pO2 ABG pO2 ABG HCO3 ABG Base Excess ABG Hemoglobin Oxyhemoglobin Sodium Potassium Chloride Carbon Dioxide BUN Creatinine Glucose POC Glucose 261 H 215 H Lactic Acid 2.50 H* Calcium AST Alkaline Phosphatase Albumin Urine WBC (Auto) 01/29/17 01/30/17 01/30/17 23:55 05:31 05:31 WBC 15.2 H RBC 3.09 L Hgb 7.9 L Hct 23.9 L MCV 77 L MCH 26 L RDW 16.9 H Plt Count 569 H Lymph % (Auto) Dougherty % (Auto) Eos % (Auto) Seg Neutrophils % Seg Neuts % (Manual) Lymphocytes % (Manual) Seg Neutrophils # Seg Neutrophils # Man Lymphocytes # (Manual) POC ABG pH ABG pH POC ABG pCO2 POC ABG pO2 ABG pO2 ABG HCO3 ABG Base Excess ABG Hemoglobin Oxyhemoglobin Sodium Potassium Chloride Carbon Dioxide BUN 24 H Creatinine Glucose 235 H POC Glucose 176 H Lactic Acid Calcium AST Alkaline Phosphatase Albumin Urine WBC (Auto) 01/30/17 01/30/17 01/30/17 05:34 11:38 17:58 WBC RBC Hgb Hct MCV MCH RDW Plt Count Lymph % (Auto) Dougherty % (Auto) Eos % (Auto) Seg Neutrophils % Seg Neuts % (Manual) Lymphocytes % (Manual) Seg Neutrophils # Seg Neutrophils # Man Lymphocytes # (Manual) POC ABG pH ABG pH POC ABG pCO2 POC ABG pO2 ABG pO2 ABG HCO3 ABG Base Excess ABG Hemoglobin Oxyhemoglobin Sodium Potassium Chloride Carbon Dioxide BUN Creatinine Glucose POC Glucose 243 H 298 H 208 H Lactic Acid Calcium AST Alkaline Phosphatase Albumin Urine WBC (Auto) 01/30/17 01/31/17 01/31/17 23:29 04:39 04:39 WBC 11.4 H RBC 3.22 L Hgb 8.2 L Hct 24.9 L MCV 78 L MCH 25 L RDW 17.2 H Plt Count 576 H Lymph % (Auto) Dougherty % (Auto) Eos % (Auto) Seg Neutrophils % Seg Neuts % (Manual) Lymphocytes % (Manual) Seg Neutrophils # Seg Neutrophils # Man Lymphocytes # (Manual) POC ABG pH ABG pH POC ABG pCO2 POC ABG pO2 ABG pO2 ABG HCO3 ABG Base Excess ABG Hemoglobin Oxyhemoglobin Sodium Potassium Chloride Carbon Dioxide BUN Creatinine 0.7 L Glucose 223 H POC Glucose 245 H Lactic Acid Calcium AST Alkaline Phosphatase Albumin Urine WBC (Auto) 01/31/17 01/31/17 01/31/17 05:57 12:23 17:41 WBC RBC Hgb Hct MCV MCH RDW Plt Count Lymph % (Auto) Dougherty % (Auto) Eos % (Auto) Seg Neutrophils % Seg Neuts % (Manual) Lymphocytes % (Manual) Seg Neutrophils # Seg Neutrophils # Man Lymphocytes # (Manual) POC ABG pH ABG pH POC ABG pCO2 POC ABG pO2 ABG pO2 ABG HCO3 ABG Base Excess ABG Hemoglobin Oxyhemoglobin Sodium Potassium Chloride Carbon Dioxide BUN Creatinine Glucose POC Glucose 264 H 252 H 208 H Lactic Acid Calcium AST Alkaline Phosphatase Albumin Urine WBC (Auto) 01/31/17 01/31/17 02/01/17 18:55 22:59 03:38 WBC RBC 2.81 L Hgb 7.4 L Hct 22.1 L MCV 79 L MCH 27 L RDW 17.0 H Plt Count 540 H Lymph % (Auto) Dougherty % (Auto) Eos % (Auto) Seg Neutrophils % Seg Neuts % (Manual) Lymphocytes % (Manual) Seg Neutrophils # Seg Neutrophils # Man Lymphocytes # (Manual) POC ABG pH ABG pH POC ABG pCO2 32.8 L POC ABG pO2 ABG pO2 ABG HCO3 ABG Base Excess ABG Hemoglobin Oxyhemoglobin Sodium Potassium Chloride Carbon Dioxide BUN Creatinine Glucose POC Glucose 40 L Lactic Acid Calcium AST Alkaline Phosphatase Albumin Urine WBC (Auto) 02/01/17 02/01/17 03:38 05:17 WBC RBC Hgb Hct MCV MCH RDW Plt Count Lymph % (Auto) Dougherty % (Auto) Eos % (Auto) Seg Neutrophils % Seg Neuts % (Manual) Lymphocytes % (Manual) Seg Neutrophils # Seg Neutrophils # Man Lymphocytes # (Manual) POC ABG pH ABG pH POC ABG pCO2 POC ABG pO2 ABG pO2 ABG HCO3 ABG Base Excess ABG Hemoglobin Oxyhemoglobin Sodium Potassium Chloride Carbon Dioxide 21 L BUN Creatinine 0.7 L Glucose POC Glucose 140 H Lactic Acid Calcium AST Alkaline Phosphatase Albumin Urine WBC (Auto)
[2017-02-01] MEDS: PEPCID PO SCH ×2 (09:32→21:07)
[2017-02-01] MEDS: HEPARIN SUB-Q SCH ×2 (09:34→21:07)
[2017-02-01] MEDS: LEVEMIR (NF) SUB-Q SCH (12:03)
[2017-02-01] MEDS: NORMODYNE PO SCH ×2 (12:03→21:07)
[2017-02-01] MEDS: NACL 0.9% 1000 ML 1,000 ML IV SCH (12:07)
[2017-02-02] MEDS: NOVOLOG SUB-Q SCH ×3 (00:58→11:52)
[2017-02-02] MEDS: NACL 0.9% 1000 ML 1,000 ML IV SCH (00:58)
[2017-02-02] MEDS: VANCOMYCIN 750 MG in NACL 0.9% 250ML 250 ML IV SCH (02:19)
[2017-02-02] MEDS: ZOSYN/NS 4.5GM/100ML 4.5 GM/100 ML VIAL IV SCH (05:04)
[2017-02-02] MEDS: SYNTHROID PO SCH (05:04)
[2017-02-02] MEDS: APRESOLINE IV PRN (06:14)
[2017-02-02] MEDS: PEPCID PO SCH ×2 (09:21→22:09)
[2017-02-02] MEDS: NORMODYNE PO SCH ×2 (09:21→22:09)
[2017-02-02] MEDS: LEVEMIR (NF) SUB-Q SCH (09:21)
[2017-02-02] MEDS: HEPARIN SUB-Q SCH ×2 (09:21→22:09)
--- NOTE | 2017-02-02 09:52 | Progress Note ---
Assessment and Plan 51 y/o male found down, concern for sepsis and now encephalopathic requiring mechanical ventilation. No New recs 1. continue supportive care CCT 31 minutes. Subjective Date of service: 02/02/17 Principal diagnosis: Acute respiratory failure,encephalopathy Interval history: Remains comatose, on vent. No family present. Still no change in guardian status. Objective Vital Signs - 12hr 02/01/17 02/01/17 02/01/17 22:00 23:00 23:24 Temperature 99.7 F H Pulse Rate 67 66 Respiratory 17 19 Rate Blood Pressure 128/60 142/68 O2 Sat by Pulse 100 98 Oximetry 02/01/17 02/02/17 02/02/17 23:40 00:00 01:00 Temperature Pulse Rate 66 71 68 Respiratory 29 H 18 Rate Blood Pressure 142/68 147/72 140/71 O2 Sat by Pulse 100 100 100 Oximetry 02/02/17 02/02/17 02/02/17 02:00 03:00 03:11 Temperature 98.6 F Pulse Rate 65 64 Respiratory 19 20 Rate Blood Pressure 140/71 144/69 O2 Sat by Pulse 100 100 Oximetry 02/02/17 02/02/17 02/02/17 03:52 04:00 05:00 Temperature Pulse Rate 64 65 Respiratory 17 19 Rate Blood Pressure 167/74 169/76 O2 Sat by Pulse 100 100 100 Oximetry 02/02/17 02/02/17 02/02/17 06:00 06:14 07:00 Temperature Pulse Rate 64 64 71 Respiratory 17 18 Rate Blood Pressure 171/74 171/74 171/74 O2 Sat by Pulse 100 100 Oximetry 02/02/17 02/02/17 08:00 09:21 Temperature 97.8 F Pulse Rate 70 70 Respiratory 16 Rate Blood Pressure 110/60 119/63 O2 Sat by Pulse 100 Oximetry Constitutional: no acute distress, comatose, other (orally intubated, on vent) Eyes: non-icteric ENT: oropharynx moist Neck: supple, no JVD Effort: normal Ascultation: Bilateral: clear, diminished breath sounds Cardiovascular: regular rate and rhythm Gastrointestinal: normoactive bowel sounds, soft, non-tender, non-distended Integumentary: normal Extremities: no cyanosis, no edema, pink and warm Neurologic: non-focal exam, pupils equal and round, other (no response to pain. ) Psychiatric: other (unable to obtain) CBC and BMP: 02/01/17 03:38 02/01/17 03:38 ABG, PT/INR, D-dimer: ABG POC ABG pH 7.442 (7.35-7.45) 01/31/17 18:55 ABG pH 7.420 pH Units (7.350-7.450) 01/17/17 04:35 POC ABG pCO2 32.8 (35-45) L 01/31/17 18:55 ABG pCO2 34.5 mm Hg 01/17/17 04:35 POC ABG pO2 82 (80-105) 01/31/17 18:55 ABG pO2 160.3 mm Hg (80.0-90.0) H 01/17/17 04:35 POC ABG HCO3 22.4 01/31/17 18:55 POC ABG Total CO2 23 01/31/17 18:55 POC ABG O2 Sat 97 01/31/17 18:55 ABG O2 Saturation 99.0 % (95.0-99.0) 01/17/17 04:35 PT/INR, D-dimer PT 14.1 Sec. (12.2-14.9) 01/17/17 04:10 INR 1.04 (0.87-1.13) 01/17/17 04:10 Abnormal lab findings: Abnormal Labs 01/09/17 01/09/17 01/09/17 12:49 13:13 14:21 WBC RBC Hgb Hct MCV MCH RDW Plt Count Lymph % (Auto) [place] % (Auto) Eos % (Auto) Seg Neutrophils % Seg Neuts % (Manual) Lymphocytes % (Manual) Seg Neutrophils # Seg Neutrophils # Man Lymphocytes # (Manual) POC ABG pH ABG pH POC ABG pCO2 POC ABG pO2 ABG pO2 ABG HCO3 ABG Base Excess ABG Hemoglobin Oxyhemoglobin Sodium Potassium Chloride Carbon Dioxide BUN Creatinine Glucose POC Glucose < 40 L 128 H 65 L Lactic Acid Calcium AST Alkaline Phosphatase Albumin Urine WBC (Auto) 01/09/17 01/09/17 01/09/17 15:09 16:28 17:14 WBC RBC Hgb Hct MCV MCH RDW Plt Count Lymph % (Auto) [place] % (Auto) Eos % (Auto) Seg Neutrophils % Seg Neuts % (Manual) Lymphocytes % (Manual) Seg Neutrophils # Seg Neutrophils # Man Lymphocytes # (Manual) POC ABG pH ABG pH POC ABG pCO2 POC ABG pO2 ABG pO2 ABG HCO3 ABG Base Excess ABG Hemoglobin Oxyhemoglobin Sodium Potassium Chloride Carbon Dioxide BUN Creatinine Glucose POC Glucose 120 H 44 L 112 H Lactic Acid Calcium AST Alkaline Phosphatase Albumin Urine WBC (Auto) 01/10/17 01/10/17 01/10/17 04:30 04:30 05:41 WBC 24.1 H RBC 3.38 L Hgb 8.5 L Hct 26.0 L MCV 77 L MCH 25 L RDW 17.9 H Plt Count 474 H Lymph % (Auto) [place] % (Auto) Eos % (Auto) Seg Neutrophils % Seg Neuts % (Manual) 88.0 H Lymphocytes % (Manual) 4.0 L Seg Neutrophils # Seg Neutrophils # Man 21.2 H Lymphocytes # (Manual) 1.0 L POC ABG pH ABG pH POC ABG pCO2 POC ABG pO2 ABG pO2 ABG HCO3 ABG Base Excess ABG Hemoglobin Oxyhemoglobin Sodium Potassium Chloride Carbon Dioxide 17 L BUN 27 H Creatinine Glucose POC Glucose 68 L Lactic Acid Calcium 7.5 L AST Alkaline Phosphatase Albumin Urine WBC (Auto) 01/10/17 01/10/17 01/10/17 05:45 07:47 10:50 WBC RBC Hgb Hct MCV MCH RDW Plt Count Lymph % (Auto) [place] % (Auto) Eos % (Auto) Seg Neutrophils % Seg Neuts % (Manual) Lymphocytes % (Manual) Seg Neutrophils # Seg Neutrophils # Man Lymphocytes # (Manual) POC ABG pH ABG pH POC ABG pCO2 26.6 L POC ABG pO2 207 H ABG pO2 ABG HCO3 ABG Base Excess ABG Hemoglobin Oxyhemoglobin Sodium Potassium Chloride Carbon Dioxide BUN Creatinine Glucose POC Glucose 148 H 165 H Lactic Acid Calcium AST Alkaline Phosphatase Albumin Urine WBC (Auto) 01/10/17 01/10/17 01/10/17 13:41 20:20 21:39 WBC RBC Hgb Hct MCV MCH RDW Plt Count Lymph % (Auto) [place] % (Auto) Eos % (Auto) Seg Neutrophils % Seg Neuts % (Manual) Lymphocytes % (Manual) Seg Neutrophils # Seg Neutrophils # Man Lymphocytes # (Manual) POC ABG pH ABG pH POC ABG pCO2 POC ABG pO2 ABG pO2 ABG HCO3 ABG Base Excess ABG Hemoglobin Oxyhemoglobin Sodium Potassium Chloride Carbon Dioxide BUN Creatinine Glucose POC Glucose 114 H 150 H 175 H Lactic Acid Calcium AST Alkaline Phosphatase Albumin Urine WBC (Auto) 01/10/17 01/11/17 01/11/17 23:24 00:19 04:06 WBC RBC Hgb Hct MCV MCH RDW Plt Count Lymph % (Auto) [place] % (Auto) Eos % (Auto) Seg Neutrophils % Seg Neuts % (Manual) Lymphocytes % (Manual) Seg Neutrophils # Seg Neutrophils # Man Lymphocytes # (Manual) POC ABG pH 7.463 H ABG pH POC ABG pCO2 26.2 L POC ABG pO2 185 H ABG pO2 ABG HCO3 ABG Base Excess ABG Hemoglobin Oxyhemoglobin Sodium Potassium Chloride Carbon Dioxide BUN Creatinine Glucose POC Glucose 155 H 163 H Lactic Acid Calcium AST Alkaline Phosphatase Albumin Urine WBC (Auto) 01/11/17 01/11/17 01/11/17 05:20 05:20 06:21 WBC 15.2 H RBC 3.40 L Hgb 8.9 L Hct 26.3 L MCV 78 L MCH 26 L RDW 18.6 H Plt Count 462 H Lymph % (Auto) 13.2 L [place] % (Auto) Eos % (Auto) Seg Neutrophils % 80.8 H Seg Neuts % (Manual) Lymphocytes % (Manual) Seg Neutrophils # 12.3 H Seg Neutrophils # Man Lymphocytes # (Manual) POC ABG pH ABG pH POC ABG pCO2 POC ABG pO2 ABG pO2 ABG HCO3 ABG Base Excess ABG Hemoglobin Oxyhemoglobin Sodium Potassium 3.4 L Chloride 111.5 H Carbon Dioxide 17 L BUN Creatinine Glucose 147 H POC Glucose 139 H Lactic Acid Calcium 8.0 L AST Alkaline Phosphatase Albumin Urine WBC (Auto) 01/11/17 01/11/17 01/11/17 07:57 11:46 16:50 WBC RBC Hgb Hct MCV MCH RDW Plt Count Lymph % (Auto) [place] % (Auto) Eos % (Auto) Seg Neutrophils % Seg Neuts % (Manual) Lymphocytes % (Manual) Seg Neutrophils # Seg Neutrophils # Man Lymphocytes # (Manual) POC ABG pH ABG pH POC ABG pCO2 POC ABG pO2 ABG pO2 ABG HCO3 ABG Base Excess ABG Hemoglobin Oxyhemoglobin Sodium Potassium Chloride Carbon Dioxide BUN Creatinine Glucose POC Glucose 188 H 199 H 235 H Lactic Acid Calcium AST Alkaline Phosphatase Albumin Urine WBC (Auto) 01/11/17 01/12/17 01/12/17 23:15 05:02 06:56 WBC RBC Hgb Hct MCV MCH RDW Plt Count Lymph % (Auto) [place] % (Auto) Eos % (Auto) Seg Neutrophils % Seg Neuts % (Manual) Lymphocytes % (Manual) Seg Neutrophils # Seg Neutrophils # Man Lymphocytes # (Manual) POC ABG pH ABG pH POC ABG pCO2 28.0 L POC ABG pO2 178 H ABG pO2 ABG HCO3 ABG Base Excess ABG Hemoglobin Oxyhemoglobin Sodium Potassium Chloride Carbon Dioxide BUN Creatinine Glucose POC Glucose 155 H 119 H Lactic Acid Calcium AST Alkaline Phosphatase Albumin Urine WBC (Auto) 01/12/17 01/13/17 01/13/17 14:50 03:37 03:37 WBC RBC 3.61 L Hgb 9.3 L Hct 28.0 L MCV 78 L MCH 26 L RDW 18.2 H Plt Count Lymph % (Auto) [place] % (Auto) Eos % (Auto) Seg Neutrophils % Seg Neuts % (Manual) Lymphocytes % (Manual) Seg Neutrophils # Seg Neutrophils # Man Lymphocytes # (Manual) POC ABG pH ABG pH POC ABG pCO2 POC ABG pO2 ABG pO2 ABG HCO3 ABG Base Excess ABG Hemoglobin Oxyhemoglobin Sodium Potassium Chloride 112.4 H Carbon Dioxide 19 L BUN Creatinine Glucose 118 H POC Glucose 164 H Lactic Acid Calcium 8.0 L AST Alkaline Phosphatase Albumin Urine WBC (Auto) 01/13/17 01/13/17 01/13/17 04:26 06:15 11:50 WBC RBC Hgb Hct MCV MCH RDW Plt Count Lymph % (Auto) [place] % (Auto) Eos % (Auto) Seg Neutrophils % Seg Neuts % (Manual) Lymphocytes % (Manual) Seg Neutrophils # Seg Neutrophils # Man Lymphocytes # (Manual) POC ABG pH 7.485 H ABG pH POC ABG pCO2 25.4 L POC ABG pO2 73 L ABG pO2 ABG HCO3 ABG Base Excess ABG Hemoglobin Oxyhemoglobin Sodium Potassium Chloride Carbon Dioxide BUN Creatinine Glucose POC Glucose 116 H 171 H Lactic Acid Calcium AST Alkaline Phosphatase Albumin Urine WBC (Auto) 01/13/17 01/14/17 01/14/17 17:31 00:02 04:50 WBC RBC 3.32 L Hgb 8.5 L Hct 26.1 L MCV 79 L MCH 26 L RDW 18.2 H Plt Count Lymph % (Auto) [place] % (Auto) 9.0 H Eos % (Auto) Seg Neutrophils % Seg Neuts % (Manual) Lymphocytes % (Manual) Seg Neutrophils # Seg Neutrophils # Man Lymphocytes # (Manual) POC ABG pH ABG pH POC ABG pCO2 POC ABG pO2 ABG pO2 ABG HCO3 ABG Base Excess ABG Hemoglobin Oxyhemoglobin Sodium Potassium Chloride Carbon Dioxide BUN Creatinine Glucose POC Glucose 203 H 157 H Lactic Acid Calcium AST Alkaline Phosphatase Albumin Urine WBC (Auto) 01/14/17 01/14/17 01/14/17 04:50 05:10 11:27 WBC RBC Hgb Hct MCV MCH RDW Plt Count Lymph % (Auto) [place] % (Auto) Eos % (Auto) Seg Neutrophils % Seg Neuts % (Manual) Lymphocytes % (Manual) Seg Neutrophils # Seg Neutrophils # Man Lymphocytes # (Manual) POC ABG pH ABG pH POC ABG pCO2 POC ABG pO2 ABG pO2 ABG HCO3 ABG Base Excess ABG Hemoglobin Oxyhemoglobin Sodium Potassium Chloride 112.5 H Carbon Dioxide BUN Creatinine Glucose 149 H POC Glucose 176 H 147 H Lactic Acid Calcium 8.1 L AST Alkaline Phosphatase Albumin Urine WBC (Auto) 01/14/17 01/14/17 01/15/17 14:07 16:52 00:04 WBC RBC Hgb Hct MCV MCH RDW Plt Count Lymph % (Auto) [place] % (Auto) Eos % (Auto) Seg Neutrophils % Seg Neuts % (Manual) Lymphocytes % (Manual) Seg Neutrophils # Seg Neutrophils # Man Lymphocytes # (Manual) POC ABG pH ABG pH POC ABG pCO2 POC ABG pO2 ABG pO2 ABG HCO3 ABG Base Excess ABG Hemoglobin Oxyhemoglobin Sodium Potassium Chloride Carbon Dioxide BUN Creatinine Glucose POC Glucose 131 H 193 H Lactic Acid Calcium AST Alkaline Phosphatase Albumin Urine WBC (Auto) 53.0 H 01/15/17 01/15/17 01/15/17 05:26 11:49 17:47 WBC RBC Hgb Hct MCV MCH RDW Plt Count Lymph % (Auto) [place] % (Auto) Eos % (Auto) Seg Neutrophils % Seg Neuts % (Manual) Lymphocytes % (Manual) Seg Neutrophils # Seg Neutrophils # Man Lymphocytes # (Manual) POC ABG pH ABG pH POC ABG pCO2 POC ABG pO2 ABG pO2 ABG HCO3 ABG Base Excess ABG Hemoglobin Oxyhemoglobin Sodium Potassium Chloride Carbon Dioxide BUN Creatinine Glucose POC Glucose 215 H 121 H 211 H Lactic Acid Calcium AST Alkaline Phosphatase Albumin Urine WBC (Auto) 01/15/17 01/16/17 01/16/17 21:33 04:30 05:28 WBC RBC Hgb Hct MCV MCH RDW Plt Count Lymph % (Auto) [place] % (Auto) Eos % (Auto) Seg Neutrophils % Seg Neuts % (Manual) Lymphocytes % (Manual) Seg Neutrophils # Seg Neutrophils # Man Lymphocytes # (Manual) POC ABG pH ABG pH 7.457 H POC ABG pCO2 POC ABG pO2 ABG pO2 55.1 L ABG HCO3 19.4 L ABG Base Excess -4.0 L ABG Hemoglobin 6.8 L Oxyhemoglobin 94.9 L Sodium Potassium Chloride Carbon Dioxide BUN Creatinine Glucose POC Glucose 275 H 271 H Lactic Acid Calcium AST Alkaline Phosphatase Albumin Urine WBC (Auto) 01/16/17 01/16/17 01/17/17 13:45 21:39 04:10 WBC 4.4 L RBC 2.98 L Hgb 7.7 L Hct 23.3 L MCV 78 L MCH 26 L RDW 18.1 H Plt Count Lymph % (Auto) [place] % (Auto) Eos % (Auto) Seg Neutrophils % Seg Neuts % (Manual) Lymphocytes % (Manual) Seg Neutrophils # Seg Neutrophils # Man Lymphocytes # (Manual) POC ABG pH ABG pH POC ABG pCO2 POC ABG pO2 ABG pO2 ABG HCO3 ABG Base Excess ABG Hemoglobin Oxyhemoglobin Sodium Potassium Chloride Carbon Dioxide BUN Creatinine Glucose POC Glucose 236 H 258 H Lactic Acid Calcium AST Alkaline Phosphatase Albumin Urine WBC (Auto) 01/17/17 01/17/17 01/17/17 04:10 04:35 12:23 WBC RBC Hgb Hct MCV MCH RDW Plt Count Lymph % (Auto) [place] % (Auto) Eos % (Auto) Seg Neutrophils % Seg Neuts % (Manual) Lymphocytes % (Manual) Seg Neutrophils # Seg Neutrophils # Man Lymphocytes # (Manual) POC ABG pH ABG pH POC ABG pCO2 POC ABG pO2 ABG pO2 160.3 H ABG HCO3 ABG Base Excess -2.3 L ABG Hemoglobin 7.9 L Oxyhemoglobin Sodium Potassium 3.3 L Chloride 108.7 H Carbon Dioxide 20 L BUN 8 L Creatinine Glucose 202 H POC Glucose 321 H Lactic Acid Calcium 7.6 L AST Alkaline Phosphatase Albumin Urine WBC (Auto) 01/17/17 01/18/17 01/18/17 16:01 05:07 12:09 WBC RBC Hgb Hct MCV MCH RDW Plt Count Lymph % (Auto) [place] % (Auto) Eos % (Auto) Seg Neutrophils % Seg Neuts % (Manual) Lymphocytes % (Manual) Seg Neutrophils # Seg Neutrophils # Man Lymphocytes # (Manual) POC ABG pH ABG pH POC ABG pCO2 POC ABG pO2 ABG pO2 ABG HCO3 ABG Base Excess ABG Hemoglobin Oxyhemoglobin Sodium Potassium Chloride Carbon Dioxide BUN Creatinine Glucose POC Glucose 239 H 155 H 203 H Lactic Acid Calcium AST Alkaline Phosphatase Albumin Urine WBC (Auto) 01/18/17 01/18/17 01/19/17 17:54 23:43 04:28 WBC RBC Hgb Hct MCV MCH RDW Plt Count Lymph % (Auto) [place] % (Auto) Eos % (Auto) Seg Neutrophils % Seg Neuts % (Manual) Lymphocytes % (Manual) Seg Neutrophils # Seg Neutrophils # Man Lymphocytes # (Manual) POC ABG pH ABG pH POC ABG pCO2 POC ABG pO2 ABG pO2 ABG HCO3 ABG Base Excess ABG Hemoglobin Oxyhemoglobin Sodium Potassium Chloride Carbon Dioxide BUN Creatinine Glucose POC Glucose 132 H 125 H 182 H Lactic Acid Calcium AST Alkaline Phosphatase Albumin Urine WBC (Auto) 01/19/17 01/19/17 01/20/17 12:11 17:23 00:12 WBC RBC Hgb Hct MCV MCH RDW Plt Count Lymph % (Auto) [place] % (Auto) Eos % (Auto) Seg Neutrophils % Seg Neuts % (Manual) Lymphocytes % (Manual) Seg Neutrophils # Seg Neutrophils # Man Lymphocytes # (Manual) POC ABG pH ABG pH POC ABG pCO2 POC ABG pO2 ABG pO2 ABG HCO3 ABG Base Excess ABG Hemoglobin Oxyhemoglobin Sodium Potassium Chloride Carbon Dioxide BUN Creatinine Glucose POC Glucose 153 H 66 L 139 H Lactic Acid Calcium AST Alkaline Phosphatase Albumin Urine WBC (Auto) 01/20/17 01/20/17 01/20/17 05:44 11:48 17:42 WBC RBC Hgb Hct MCV MCH RDW Plt Count Lymph % (Auto) [place] % (Auto) Eos % (Auto) Seg Neutrophils % Seg Neuts % (Manual) Lymphocytes % (Manual) Seg Neutrophils # Seg Neutrophils # Man Lymphocytes # (Manual) POC ABG pH ABG pH POC ABG pCO2 POC ABG pO2 ABG pO2 ABG HCO3 ABG Base Excess ABG Hemoglobin Oxyhemoglobin Sodium Potassium Chloride Carbon Dioxide BUN Creatinine Glucose POC Glucose 176 H 218 H 132 H Lactic Acid Calcium AST Alkaline Phosphatase Albumin Urine WBC (Auto) 01/20/17 01/21/17 01/21/17 23:43 05:34 11:17 WBC RBC Hgb Hct MCV MCH RDW Plt Count Lymph % (Auto) [place] % (Auto) Eos % (Auto) Seg Neutrophils % Seg Neuts % (Manual) Lymphocytes % (Manual) Seg Neutrophils # Seg Neutrophils # Man Lymphocytes # (Manual) POC ABG pH ABG pH POC ABG pCO2 POC ABG pO2 ABG pO2 ABG HCO3 ABG Base Excess ABG Hemoglobin Oxyhemoglobin Sodium Potassium Chloride Carbon Dioxide BUN Creatinine Glucose POC Glucose 178 H 106 H 213 H Lactic Acid Calcium AST Alkaline Phosphatase Albumin Urine WBC (Auto) 01/21/17 01/22/17 01/22/17 23:37 04:00 04:00 WBC RBC 3.26 L Hgb 8.3 L Hct 25.5 L MCV 78 L MCH 25 L RDW 17.9 H Plt Count Lymph % (Auto) [place] % (Auto) 7.9 H Eos % (Auto) 6.2 H Seg Neutrophils % Seg Neuts % (Manual) Lymphocytes % (Manual) Seg Neutrophils # Seg Neutrophils # Man Lymphocytes # (Manual) POC ABG pH ABG pH POC ABG pCO2 POC ABG pO2 ABG pO2 ABG HCO3 ABG Base Excess ABG Hemoglobin Oxyhemoglobin Sodium Potassium Chloride 95.5 L Carbon Dioxide 31 H D BUN Creatinine Glucose 134 H POC Glucose 140 H Lactic Acid Calcium AST 44 H Alkaline Phosphatase 379 H Albumin 2.7 L Urine WBC (Auto) 01/22/17 01/22/17 01/22/17 04:58 12:12 18:12 WBC RBC Hgb Hct MCV MCH RDW Plt Count Lymph % (Auto) [place] % (Auto) Eos % (Auto) Seg Neutrophils % Seg Neuts % (Manual) Lymphocytes % (Manual) Seg Neutrophils # Seg Neutrophils # Man Lymphocytes # (Manual) POC ABG pH ABG pH POC ABG pCO2 POC ABG pO2 ABG pO2 ABG HCO3 ABG Base Excess ABG Hemoglobin Oxyhemoglobin Sodium Potassium Chloride Carbon Dioxide BUN Creatinine Glucose POC Glucose 146 H 255 H 182 H Lactic Acid Calcium AST Alkaline Phosphatase Albumin Urine WBC (Auto) 10/01/23/17 01/23/17 23:39 04:43 12:12 WBC RBC Hgb Hct MCV MCH RDW Plt Count Lymph % (Auto) [place] % (Auto) Eos % (Auto) Seg Neutrophils % Seg Neuts % (Manual) Lymphocytes % (Manual) Seg Neutrophils # Seg Neutrophils # Man Lymphocytes # (Manual) POC ABG pH ABG pH POC ABG pCO2 POC ABG pO2 ABG pO2 ABG HCO3 ABG Base Excess ABG Hemoglobin Oxyhemoglobin Sodium Potassium Chloride Carbon Dioxide BUN Creatinine Glucose POC Glucose 134 H 218 H 128 H Lactic Acid Calcium AST Alkaline Phosphatase Albumin Urine WBC (Auto) 01/23/17 01/24/17 01/24/17 17:36 00:08 05:16 WBC RBC Hgb Hct MCV MCH RDW Plt Count Lymph % (Auto) [place] % (Auto) Eos % (Auto) Seg Neutrophils % Seg Neuts % (Manual) Lymphocytes % (Manual) Seg Neutrophils # Seg Neutrophils # Man Lymphocytes # (Manual) POC ABG pH ABG pH POC ABG pCO2 POC ABG pO2 ABG pO2 ABG HCO3 ABG Base Excess ABG Hemoglobin Oxyhemoglobin Sodium Potassium Chloride Carbon Dioxide BUN Creatinine Glucose POC Glucose 156 H 129 H 169 H Lactic Acid Calcium AST Alkaline Phosphatase Albumin Urine WBC (Auto) 01/24/17 01/24/17 01/24/17 11:40 17:43 23:23 WBC RBC Hgb Hct MCV MCH RDW Plt Count Lymph % (Auto) [place] % (Auto) Eos % (Auto) Seg Neutrophils % Seg Neuts % (Manual) Lymphocytes % (Manual) Seg Neutrophils # Seg Neutrophils # Man Lymphocytes # (Manual) POC ABG pH ABG pH POC ABG pCO2 POC ABG pO2 ABG pO2 ABG HCO3 ABG Base Excess ABG Hemoglobin Oxyhemoglobin Sodium Potassium Chloride Carbon Dioxide BUN Creatinine Glucose POC Glucose 187 H 215 H 222 H Lactic Acid Calcium AST Alkaline Phosphatase Albumin Urine WBC (Auto) 01/25/17 01/25/17 01/25/17 04:56 11:52 17:37 WBC RBC Hgb Hct MCV MCH RDW Plt Count Lymph % (Auto) [place] % (Auto) Eos % (Auto) Seg Neutrophils % Seg Neuts % (Manual) Lymphocytes % (Manual) Seg Neutrophils # Seg Neutrophils # Man Lymphocytes # (Manual) POC ABG pH ABG pH POC ABG pCO2 POC ABG pO2 ABG pO2 ABG HCO3 ABG Base Excess ABG Hemoglobin Oxyhemoglobin Sodium Potassium Chloride Carbon Dioxide BUN Creatinine Glucose POC Glucose 210 H 284 H 218 H Lactic Acid Calcium AST Alkaline Phosphatase Albumin Urine WBC (Auto) 01/26/17 01/26/17 01/26/17 00:02 05:33 12:17 WBC RBC Hgb Hct MCV MCH RDW Plt Count Lymph % (Auto) [place] % (Auto) Eos % (Auto) Seg Neutrophils % Seg Neuts % (Manual) Lymphocytes % (Manual) Seg Neutrophils # Seg Neutrophils # Man Lymphocytes # (Manual) POC ABG pH ABG pH POC ABG pCO2 POC ABG pO2 ABG pO2 ABG HCO3 ABG Base Excess ABG Hemoglobin Oxyhemoglobin Sodium Potassium Chloride Carbon Dioxide BUN Creatinine Glucose POC Glucose 192 H 199 H 227 H Lactic Acid Calcium AST Alkaline Phosphatase Albumin Urine WBC (Auto) 01/26/17 01/26/17 01/27/17 17:50 23:57 05:31 WBC RBC Hgb Hct MCV MCH RDW Plt Count Lymph % (Auto) [place] % (Auto) Eos % (Auto) Seg Neutrophils % Seg Neuts % (Manual) Lymphocytes % (Manual) Seg Neutrophils # Seg Neutrophils # Man Lymphocytes # (Manual) POC ABG pH ABG pH POC ABG pCO2 POC ABG pO2 ABG pO2 ABG HCO3 ABG Base Excess ABG Hemoglobin Oxyhemoglobin Sodium Potassium Chloride Carbon Dioxide BUN Creatinine Glucose POC Glucose 229 H 186 H 285 H Lactic Acid Calcium AST Alkaline Phosphatase Albumin Urine WBC (Auto) 01/27/17 01/27/17 01/27/17 11:42 17:47 23:58 WBC RBC Hgb Hct MCV MCH RDW Plt Count Lymph % (Auto) [place] % (Auto) Eos % (Auto) Seg Neutrophils % Seg Neuts % (Manual) Lymphocytes % (Manual) Seg Neutrophils # Seg Neutrophils # Man Lymphocytes # (Manual) POC ABG pH ABG pH POC ABG pCO2 POC ABG pO2 ABG pO2 ABG HCO3 ABG Base Excess ABG Hemoglobin Oxyhemoglobin Sodium Potassium Chloride Carbon Dioxide BUN Creatinine Glucose POC Glucose 260 H 329 H 225 H Lactic Acid Calcium AST Alkaline Phosphatase Albumin Urine WBC (Auto) 01/27/17 01/27/17 01/28/17 Unknown Unknown 03:44 WBC 12.1 H RBC 3.28 L 3.14 L Hgb 8.5 L 8.2 L Hct 25.5 L 24.1 L MCV 78 L 77 L MCH 26 L 26 L RDW 16.8 H 16.9 H Plt Count 601 H 567 H Lymph % (Auto) [place] % (Auto) Eos % (Auto) Seg Neutrophils % Seg Neuts % (Manual) Lymphocytes % (Manual) Seg Neutrophils # Seg Neutrophils # Man Lymphocytes # (Manual) POC ABG pH ABG pH POC ABG pCO2 POC ABG pO2 ABG pO2 ABG HCO3 ABG Base Excess ABG Hemoglobin Oxyhemoglobin Sodium 128 L Potassium 5.4 H Chloride 87.5 L Carbon Dioxide BUN 44 H Creatinine Glucose 250 H POC Glucose Lactic Acid Calcium AST Alkaline Phosphatase Albumin Urine WBC (Auto) 01/28/17 01/28/17 01/28/17 03:44 11:43 16:47 WBC RBC Hgb Hct MCV MCH RDW Plt Count Lymph % (Auto) [place] % (Auto) Eos % (Auto) Seg Neutrophils % Seg Neuts % (Manual) Lymphocytes % (Manual) Seg Neutrophils # Seg Neutrophils # Man Lymphocytes # (Manual) POC ABG pH ABG pH POC ABG pCO2 POC ABG pO2 ABG pO2 ABG HCO3 ABG Base Excess ABG Hemoglobin Oxyhemoglobin Sodium Potassium Chloride Carbon Dioxide BUN 42 H Creatinine Glucose 128 H POC Glucose 351 H 249 H Lactic Acid Calcium AST Alkaline Phosphatase Albumin Urine WBC (Auto) 01/28/17 01/29/17 01/29/17 17:52 05:25 05:25 WBC 13.6 H RBC 3.25 L Hgb 8.3 L Hct 25.1 L MCV 77 L MCH 26 L RDW 16.8 H Plt Count 514 H Lymph % (Auto) [place] % (Auto) Eos % (Auto) Seg Neutrophils % Seg Neuts % (Manual) Lymphocytes % (Manual) Seg Neutrophils # Seg Neutrophils # Man Lymphocytes # (Manual) POC ABG pH ABG pH POC ABG pCO2 POC ABG pO2 ABG pO2 ABG HCO3 ABG Base Excess ABG Hemoglobin Oxyhemoglobin Sodium Potassium Chloride 97.8 L Carbon Dioxide BUN 34 H Creatinine Glucose 222 H POC Glucose Lactic Acid Calcium AST Alkaline Phosphatase Albumin Urine WBC (Auto) > 182.0 H 01/29/17 01/29/17 01/29/17 09:32 11:56 18:11 WBC RBC Hgb Hct MCV MCH RDW Plt Count Lymph % (Auto) [place] % (Auto) Eos % (Auto) Seg Neutrophils % Seg Neuts % (Manual) Lymphocytes % (Manual) Seg Neutrophils # Seg Neutrophils # Man Lymphocytes # (Manual) POC ABG pH ABG pH POC ABG pCO2 POC ABG pO2 ABG pO2 ABG HCO3 ABG Base Excess ABG Hemoglobin Oxyhemoglobin Sodium Potassium Chloride Carbon Dioxide BUN Creatinine Glucose POC Glucose 261 H 215 H Lactic Acid 2.50 H* Calcium AST Alkaline Phosphatase Albumin Urine WBC (Auto) 01/29/17 01/30/17 01/30/17 23:55 05:31 05:31 WBC 15.2 H RBC 3.09 L Hgb 7.9 L Hct 23.9 L MCV 77 L MCH 26 L RDW 16.9 H Plt Count 569 H Lymph % (Auto) [place] % (Auto) Eos % (Auto) Seg Neutrophils % Seg Neuts % (Manual) Lymphocytes % (Manual) Seg Neutrophils # Seg Neutrophils # Man Lymphocytes # (Manual) POC ABG pH ABG pH POC ABG pCO2 POC ABG pO2 ABG pO2 ABG HCO3 ABG Base Excess ABG Hemoglobin Oxyhemoglobin Sodium Potassium Chloride Carbon Dioxide BUN 24 H Creatinine Glucose 235 H POC Glucose 176 H Lactic Acid Calcium AST Alkaline Phosphatase Albumin Urine WBC (Auto) 01/30/17 01/30/17 01/30/17 05:34 11:38 17:58 WBC RBC Hgb Hct MCV MCH RDW Plt Count Lymph % (Auto) [place] % (Auto) Eos % (Auto) Seg Neutrophils % Seg Neuts % (Manual) Lymphocytes % (Manual) Seg Neutrophils # Seg Neutrophils # Man Lymphocytes # (Manual) POC ABG pH ABG pH POC ABG pCO2 POC ABG pO2 ABG pO2 ABG HCO3 ABG Base Excess ABG Hemoglobin Oxyhemoglobin Sodium Potassium Chloride Carbon Dioxide BUN Creatinine Glucose POC Glucose 243 H 298 H 208 H Lactic Acid Calcium AST Alkaline Phosphatase Albumin Urine WBC (Auto) 01/30/17 01/31/17 01/31/17 23:29 04:39 04:39 WBC 11.4 H RBC 3.22 L Hgb 8.2 L Hct 24.9 L MCV 78 L MCH 25 L RDW 17.2 H Plt Count 576 H Lymph % (Auto) [place] % (Auto) Eos % (Auto) Seg Neutrophils % Seg Neuts % (Manual) Lymphocytes % (Manual) Seg Neutrophils # Seg Neutrophils # Man Lymphocytes # (Manual) POC ABG pH ABG pH POC ABG pCO2 POC ABG pO2 ABG pO2 ABG HCO3 ABG Base Excess ABG Hemoglobin Oxyhemoglobin Sodium Potassium Chloride Carbon Dioxide BUN Creatinine 0.7 L Glucose 223 H POC Glucose 245 H Lactic Acid Calcium AST Alkaline Phosphatase Albumin Urine WBC (Auto) 01/31/17 01/31/17 01/31/17 05:57 12:23 17:41 WBC RBC Hgb Hct MCV MCH RDW Plt Count Lymph % (Auto) [place] % (Auto) Eos % (Auto) Seg Neutrophils % Seg Neuts % (Manual) Lymphocytes % (Manual) Seg Neutrophils # Seg Neutrophils # Man Lymphocytes # (Manual) POC ABG pH ABG pH POC ABG pCO2 POC ABG pO2 ABG pO2 ABG HCO3 ABG Base Excess ABG Hemoglobin Oxyhemoglobin Sodium Potassium Chloride Carbon Dioxide BUN Creatinine Glucose POC Glucose 264 H 252 H 208 H Lactic Acid Calcium AST Alkaline Phosphatase Albumin Urine WBC (Auto) 01/31/17 01/31/17 02/01/17 18:55 22:59 03:38 WBC RBC 2.81 L Hgb 7.4 L Hct 22.1 L MCV 79 L MCH 27 L RDW 17.0 H Plt Count 540 H Lymph % (Auto) [place] % (Auto) Eos % (Auto) Seg Neutrophils % Seg Neuts % (Manual) Lymphocytes % (Manual) Seg Neutrophils # Seg Neutrophils # Man Lymphocytes # (Manual) POC ABG pH ABG pH POC ABG pCO2 32.8 L POC ABG pO2 ABG pO2 ABG HCO3 ABG Base Excess ABG Hemoglobin Oxyhemoglobin Sodium Potassium Chloride Carbon Dioxide BUN Creatinine Glucose POC Glucose 40 L Lactic Acid Calcium AST Alkaline Phosphatase Albumin Urine WBC (Auto) 02/01/17 02/01/17 02/01/17 03:38 05:17 12:19 WBC RBC Hgb Hct MCV MCH RDW Plt Count Lymph % (Auto) [place] % (Auto) Eos % (Auto) Seg Neutrophils % Seg Neuts % (Manual) Lymphocytes % (Manual) Seg Neutrophils # Seg Neutrophils # Man Lymphocytes # (Manual) POC ABG pH ABG pH POC ABG pCO2 POC ABG pO2 ABG pO2 ABG HCO3 ABG Base Excess ABG Hemoglobin Oxyhemoglobin Sodium Potassium Chloride Carbon Dioxide 21 L BUN Creatinine 0.7 L Glucose POC Glucose 140 H 213 H Lactic Acid Calcium AST Alkaline Phosphatase Albumin Urine WBC (Auto) 02/01/17 02/01/17 02/02/17 16:44 23:59 05:14 WBC RBC Hgb Hct MCV MCH RDW Plt Count Lymph % (Auto) [place] % (Auto) Eos % (Auto) Seg Neutrophils % Seg Neuts % (Manual) Lymphocytes % (Manual) Seg Neutrophils # Seg Neutrophils # Man Lymphocytes # (Manual) POC ABG pH ABG pH POC ABG pCO2 POC ABG pO2 ABG pO2 ABG HCO3 ABG Base Excess ABG Hemoglobin Oxyhemoglobin Sodium Potassium Chloride Carbon Dioxide BUN Creatinine Glucose POC Glucose 172 H 181 H 194 H Lactic Acid Calcium AST Alkaline Phosphatase Albumin Urine WBC (Auto)
[2017-02-02 12:32] LABS: Hemoglobin 7.5 gm/dl (11.8-15.2); Mean Corpuscular HGB Conc 32 % (32-34); Mean Corpuscular Volume 78 fl (84-94); Platelet Count 520 K/mm3 (140-440); Red Blood Count 2.94 M/mm3 (3.65-5.03); Red Cell Distribution Width 16.9 % (13.2-15.2)
[2017-02-02 12:37] LABS: Mean Corpuscular Hemoglobin 25 pg (28-32)
[2017-02-02 12:46] LABS: BUN/Creatinine Ratio 22; Blood Urea Nitrogen 13 mg/dL (9-20); Calcium 8.1 mg/dL (8.4-10.2); Hemolysis Index 5
[2017-02-03] MEDS: NOVOLOG SUB-Q SCH ×5 (04:00→17:16)
[2017-02-03] MEDS: SYNTHROID PO SCH (05:31)
[2017-02-03] MEDS: NORMODYNE PO SCH ×2 (09:26→23:06)
[2017-02-03] MEDS: PEPCID PO SCH ×2 (09:27→23:06)
[2017-02-03] MEDS: HEPARIN SUB-Q SCH ×2 (09:27→23:06)
[2017-02-03] MEDS: LEVEMIR (NF) SUB-Q SCH (09:27)
--- NOTE | 2017-02-03 10:50 | Progress Note ---
Assessment and Plan 51 y/o male found down, concern for sepsis and now encephalopathic requiring mechanical ventilation. No New recs 1. continue supportive care 2. Spoke with Risk this am and the SCALPING MACHINE OPERATOR has requested that guardianship be persued. Dilemma is, once patient has been awarded guardianship, who will take him. Morally and ethically, given the prognosis provided by neurology, I do not feel placing a tracheostomy is the right thing to do. I will discuss this with the SCALPING MACHINE OPERATOR. CCT 31 minutes. Subjective Date of service: 02/03/17 Principal diagnosis: Acute respiratory failure,encephalopathy Interval history: No acute events. Mental status is unchanged. Objective Vital Signs - 12hr 02/02/17 02/02/17 02/03/17 23:00 23:39 00:00 Temperature 98.9 F Pulse Rate 63 62 63 Pulse Rate [ 65 From Monitor] Respiratory 16 16 Rate Blood Pressure 176/74 176/74 158/74 O2 Sat by Pulse 100 100 100 Oximetry 02/03/17 02/03/17 02/03/17 01:00 02:01 03:00 Temperature Pulse Rate 63 63 63 Pulse Rate [ From Monitor] Respiratory 16 16 14 Rate Blood Pressure 151/79 151/79 77/36 O2 Sat by Pulse 100 100 100 Oximetry 02/03/17 02/03/17 02/03/17 03:47 04:00 04:01 Temperature 98.5 F Pulse Rate 67 65 Pulse Rate [ 65 From Monitor] Respiratory 16 18 Rate Blood Pressure 178/74 81/35 O2 Sat by Pulse 100 100 97 Oximetry 02/03/17 02/03/17 02/03/17 05:01 06:01 07:01 Temperature Pulse Rate 64 69 69 Pulse Rate [ From Monitor] Respiratory 15 17 19 Rate Blood Pressure 141/65 141/65 141/65 O2 Sat by Pulse 99 100 100 Oximetry 02/03/17 02/03/17 02/03/17 07:55 08:00 09:00 Temperature 98.3 F Pulse Rate 69 71 Pulse Rate [ From Monitor] Respiratory 17 19 Rate Blood Pressure 129/72 125/73 O2 Sat by Pulse 100 100 Oximetry 02/03/17 02/03/17 09:26 10:00 Temperature Pulse Rate 70 69 Pulse Rate [ From Monitor] Respiratory 17 Rate Blood Pressure 125/73 131/73 O2 Sat by Pulse 100 Oximetry Constitutional: no acute distress, comatose, other (orally intubated, on vent) Eyes: non-icteric ENT: oropharynx moist Neck: supple, no JVD Effort: normal Ascultation: Bilateral: clear, diminished breath sounds Cardiovascular: regular rate and rhythm Gastrointestinal: normoactive bowel sounds, soft, non-tender, non-distended Integumentary: normal Extremities: no cyanosis, no edema, pink and warm Neurologic: non-focal exam, pupils equal and round, other (no response to pain. ) Psychiatric: other (unable to obtain) CBC and BMP: 02/02/17 11:46 02/02/17 11:46 ABG, PT/INR, D-dimer: ABG POC ABG pH 7.442 (7.35-7.45) 01/31/17 18:55 ABG pH 7.420 pH Units (7.350-7.450) 01/17/17 04:35 POC ABG pCO2 32.8 (35-45) L 01/31/17 18:55 ABG pCO2 34.5 mm Hg 01/17/17 04:35 POC ABG pO2 82 (80-105) 01/31/17 18:55 ABG pO2 160.3 mm Hg (80.0-90.0) H 01/17/17 04:35 POC ABG HCO3 22.4 01/31/17 18:55 POC ABG Total CO2 23 01/31/17 18:55 POC ABG O2 Sat 97 01/31/17 18:55 ABG O2 Saturation 99.0 % (95.0-99.0) 01/17/17 04:35 PT/INR, D-dimer PT 14.1 Sec. (12.2-14.9) 01/17/17 04:10 INR 1.04 (0.87-1.13) 01/17/17 04:10 Abnormal lab findings: Abnormal Labs 01/09/17 01/09/17 01/09/17 12:49 13:13 14:21 WBC RBC Hgb Hct MCV MCH RDW Plt Count Lymph % (Auto) [place] % (Auto) Eos % (Auto) Seg Neutrophils % Seg Neuts % (Manual) Lymphocytes % (Manual) Seg Neutrophils # Seg Neutrophils # Man Lymphocytes # (Manual) POC ABG pH ABG pH POC ABG pCO2 POC ABG pO2 ABG pO2 ABG HCO3 ABG Base Excess ABG Hemoglobin Oxyhemoglobin Sodium Potassium Chloride Carbon Dioxide BUN Creatinine Glucose POC Glucose < 40 L 128 H 65 L Lactic Acid Calcium AST Alkaline Phosphatase Albumin Urine WBC (Auto) 01/09/17 01/09/17 01/09/17 15:09 16:28 17:14 WBC RBC Hgb Hct MCV MCH RDW Plt Count Lymph % (Auto) [place] % (Auto) Eos % (Auto) Seg Neutrophils % Seg Neuts % (Manual) Lymphocytes % (Manual) Seg Neutrophils # Seg Neutrophils # Man Lymphocytes # (Manual) POC ABG pH ABG pH POC ABG pCO2 POC ABG pO2 ABG pO2 ABG HCO3 ABG Base Excess ABG Hemoglobin Oxyhemoglobin Sodium Potassium Chloride Carbon Dioxide BUN Creatinine Glucose POC Glucose 120 H 44 L 112 H Lactic Acid Calcium AST Alkaline Phosphatase Albumin Urine WBC (Auto) 01/10/17 01/10/17 01/10/17 04:30 04:30 05:41 WBC 24.1 H RBC 3.38 L Hgb 8.5 L Hct 26.0 L MCV 77 L MCH 25 L RDW 17.9 H Plt Count 474 H Lymph % (Auto) [place] % (Auto) Eos % (Auto) Seg Neutrophils % Seg Neuts % (Manual) 88.0 H Lymphocytes % (Manual) 4.0 L Seg Neutrophils # Seg Neutrophils # Man 21.2 H Lymphocytes # (Manual) 1.0 L POC ABG pH ABG pH POC ABG pCO2 POC ABG pO2 ABG pO2 ABG HCO3 ABG Base Excess ABG Hemoglobin Oxyhemoglobin Sodium Potassium Chloride Carbon Dioxide 17 L BUN 27 H Creatinine Glucose POC Glucose 68 L Lactic Acid Calcium 7.5 L AST Alkaline Phosphatase Albumin Urine WBC (Auto) 01/10/17 01/10/17 01/10/17 05:45 07:47 10:50 WBC RBC Hgb Hct MCV MCH RDW Plt Count Lymph % (Auto) [place] % (Auto) Eos % (Auto) Seg Neutrophils % Seg Neuts % (Manual) Lymphocytes % (Manual) Seg Neutrophils # Seg Neutrophils # Man Lymphocytes # (Manual) POC ABG pH ABG pH POC ABG pCO2 26.6 L POC ABG pO2 207 H ABG pO2 ABG HCO3 ABG Base Excess ABG Hemoglobin Oxyhemoglobin Sodium Potassium Chloride Carbon Dioxide BUN Creatinine Glucose POC Glucose 148 H 165 H Lactic Acid Calcium AST Alkaline Phosphatase Albumin Urine WBC (Auto) 01/10/17 01/10/17 01/10/17 13:41 20:20 21:39 WBC RBC Hgb Hct MCV MCH RDW Plt Count Lymph % (Auto) [place] % (Auto) Eos % (Auto) Seg Neutrophils % Seg Neuts % (Manual) Lymphocytes % (Manual) Seg Neutrophils # Seg Neutrophils # Man Lymphocytes # (Manual) POC ABG pH ABG pH POC ABG pCO2 POC ABG pO2 ABG pO2 ABG HCO3 ABG Base Excess ABG Hemoglobin Oxyhemoglobin Sodium Potassium Chloride Carbon Dioxide BUN Creatinine Glucose POC Glucose 114 H 150 H 175 H Lactic Acid Calcium AST Alkaline Phosphatase Albumin Urine WBC (Auto) 01/10/17 01/11/17 01/11/17 23:24 00:19 04:06 WBC RBC Hgb Hct MCV MCH RDW Plt Count Lymph % (Auto) [place] % (Auto) Eos % (Auto) Seg Neutrophils % Seg Neuts % (Manual) Lymphocytes % (Manual) Seg Neutrophils # Seg Neutrophils # Man Lymphocytes # (Manual) POC ABG pH 7.463 H ABG pH POC ABG pCO2 26.2 L POC ABG pO2 185 H ABG pO2 ABG HCO3 ABG Base Excess ABG Hemoglobin Oxyhemoglobin Sodium Potassium Chloride Carbon Dioxide BUN Creatinine Glucose POC Glucose 155 H 163 H Lactic Acid Calcium AST Alkaline Phosphatase Albumin Urine WBC (Auto) 01/11/17 01/11/17 01/11/17 05:20 05:20 06:21 WBC 15.2 H RBC 3.40 L Hgb 8.9 L Hct 26.3 L MCV 78 L MCH 26 L RDW 18.6 H Plt Count 462 H Lymph % (Auto) 13.2 L [place] % (Auto) Eos % (Auto) Seg Neutrophils % 80.8 H Seg Neuts % (Manual) Lymphocytes % (Manual) Seg Neutrophils # 12.3 H Seg Neutrophils # Man Lymphocytes # (Manual) POC ABG pH ABG pH POC ABG pCO2 POC ABG pO2 ABG pO2 ABG HCO3 ABG Base Excess ABG Hemoglobin Oxyhemoglobin Sodium Potassium 3.4 L Chloride 111.5 H Carbon Dioxide 17 L BUN Creatinine Glucose 147 H POC Glucose 139 H Lactic Acid Calcium 8.0 L AST Alkaline Phosphatase Albumin Urine WBC (Auto) 01/11/17 01/11/17 01/11/17 07:57 11:46 16:50 WBC RBC Hgb Hct MCV MCH RDW Plt Count Lymph % (Auto) [place] % (Auto) Eos % (Auto) Seg Neutrophils % Seg Neuts % (Manual) Lymphocytes % (Manual) Seg Neutrophils # Seg Neutrophils # Man Lymphocytes # (Manual) POC ABG pH ABG pH POC ABG pCO2 POC ABG pO2 ABG pO2 ABG HCO3 ABG Base Excess ABG Hemoglobin Oxyhemoglobin Sodium Potassium Chloride Carbon Dioxide BUN Creatinine Glucose POC Glucose 188 H 199 H 235 H Lactic Acid Calcium AST Alkaline Phosphatase Albumin Urine WBC (Auto) 01/11/17 01/12/17 01/12/17 23:15 05:02 06:56 WBC RBC Hgb Hct MCV MCH RDW Plt Count Lymph % (Auto) [place] % (Auto) Eos % (Auto) Seg Neutrophils % Seg Neuts % (Manual) Lymphocytes % (Manual) Seg Neutrophils # Seg Neutrophils # Man Lymphocytes # (Manual) POC ABG pH ABG pH POC ABG pCO2 28.0 L POC ABG pO2 178 H ABG pO2 ABG HCO3 ABG Base Excess ABG Hemoglobin Oxyhemoglobin Sodium Potassium Chloride Carbon Dioxide BUN Creatinine Glucose POC Glucose 155 H 119 H Lactic Acid Calcium AST Alkaline Phosphatase Albumin Urine WBC (Auto) 01/12/17 01/13/17 01/13/17 14:50 03:37 03:37 WBC RBC 3.61 L Hgb 9.3 L Hct 28.0 L MCV 78 L MCH 26 L RDW 18.2 H Plt Count Lymph % (Auto) [place] % (Auto) Eos % (Auto) Seg Neutrophils % Seg Neuts % (Manual) Lymphocytes % (Manual) Seg Neutrophils # Seg Neutrophils # Man Lymphocytes # (Manual) POC ABG pH ABG pH POC ABG pCO2 POC ABG pO2 ABG pO2 ABG HCO3 ABG Base Excess ABG Hemoglobin Oxyhemoglobin Sodium Potassium Chloride 112.4 H Carbon Dioxide 19 L BUN Creatinine Glucose 118 H POC Glucose 164 H Lactic Acid Calcium 8.0 L AST Alkaline Phosphatase Albumin Urine WBC (Auto) 01/13/17 01/13/17 01/13/17 04:26 06:15 11:50 WBC RBC Hgb Hct MCV MCH RDW Plt Count Lymph % (Auto) [place] % (Auto) Eos % (Auto) Seg Neutrophils % Seg Neuts % (Manual) Lymphocytes % (Manual) Seg Neutrophils # Seg Neutrophils # Man Lymphocytes # (Manual) POC ABG pH 7.485 H ABG pH POC ABG pCO2 25.4 L POC ABG pO2 73 L ABG pO2 ABG HCO3 ABG Base Excess ABG Hemoglobin Oxyhemoglobin Sodium Potassium Chloride Carbon Dioxide BUN Creatinine Glucose POC Glucose 116 H 171 H Lactic Acid Calcium AST Alkaline Phosphatase Albumin Urine WBC (Auto) 01/13/17 01/14/17 01/14/17 17:31 00:02 04:50 WBC RBC 3.32 L Hgb 8.5 L Hct 26.1 L MCV 79 L MCH 26 L RDW 18.2 H Plt Count Lymph % (Auto) [place] % (Auto) 9.0 H Eos % (Auto) Seg Neutrophils % Seg Neuts % (Manual) Lymphocytes % (Manual) Seg Neutrophils # Seg Neutrophils # Man Lymphocytes # (Manual) POC ABG pH ABG pH POC ABG pCO2 POC ABG pO2 ABG pO2 ABG HCO3 ABG Base Excess ABG Hemoglobin Oxyhemoglobin Sodium Potassium Chloride Carbon Dioxide BUN Creatinine Glucose POC Glucose 203 H 157 H Lactic Acid Calcium AST Alkaline Phosphatase Albumin Urine WBC (Auto) 01/14/17 01/14/17 01/14/17 04:50 05:10 11:27 WBC RBC Hgb Hct MCV MCH RDW Plt Count Lymph % (Auto) [place] % (Auto) Eos % (Auto) Seg Neutrophils % Seg Neuts % (Manual) Lymphocytes % (Manual) Seg Neutrophils # Seg Neutrophils # Man Lymphocytes # (Manual) POC ABG pH ABG pH POC ABG pCO2 POC ABG pO2 ABG pO2 ABG HCO3 ABG Base Excess ABG Hemoglobin Oxyhemoglobin Sodium Potassium Chloride 112.5 H Carbon Dioxide BUN Creatinine Glucose 149 H POC Glucose 176 H 147 H Lactic Acid Calcium 8.1 L AST Alkaline Phosphatase Albumin Urine WBC (Auto) 01/14/17 01/14/17 01/15/17 14:07 16:52 00:04 WBC RBC Hgb Hct MCV MCH RDW Plt Count Lymph % (Auto) [place] % (Auto) Eos % (Auto) Seg Neutrophils % Seg Neuts % (Manual) Lymphocytes % (Manual) Seg Neutrophils # Seg Neutrophils # Man Lymphocytes # (Manual) POC ABG pH ABG pH POC ABG pCO2 POC ABG pO2 ABG pO2 ABG HCO3 ABG Base Excess ABG Hemoglobin Oxyhemoglobin Sodium Potassium Chloride Carbon Dioxide BUN Creatinine Glucose POC Glucose 131 H 193 H Lactic Acid Calcium AST Alkaline Phosphatase Albumin Urine WBC (Auto) 53.0 H 01/15/17 01/15/17 01/15/17 05:26 11:49 17:47 WBC RBC Hgb Hct MCV MCH RDW Plt Count Lymph % (Auto) [place] % (Auto) Eos % (Auto) Seg Neutrophils % Seg Neuts % (Manual) Lymphocytes % (Manual) Seg Neutrophils # Seg Neutrophils # Man Lymphocytes # (Manual) POC ABG pH ABG pH POC ABG pCO2 POC ABG pO2 ABG pO2 ABG HCO3 ABG Base Excess ABG Hemoglobin Oxyhemoglobin Sodium Potassium Chloride Carbon Dioxide BUN Creatinine Glucose POC Glucose 215 H 121 H 211 H Lactic Acid Calcium AST Alkaline Phosphatase Albumin Urine WBC (Auto) 01/15/17 01/16/17 01/16/17 21:33 04:30 05:28 WBC RBC Hgb Hct MCV MCH RDW Plt Count Lymph % (Auto) [place] % (Auto) Eos % (Auto) Seg Neutrophils % Seg Neuts % (Manual) Lymphocytes % (Manual) Seg Neutrophils # Seg Neutrophils # Man Lymphocytes # (Manual) POC ABG pH ABG pH 7.457 H POC ABG pCO2 POC ABG pO2 ABG pO2 55.1 L ABG HCO3 19.4 L ABG Base Excess -4.0 L ABG Hemoglobin 6.8 L Oxyhemoglobin 94.9 L Sodium Potassium Chloride Carbon Dioxide BUN Creatinine Glucose POC Glucose 275 H 271 H Lactic Acid Calcium AST Alkaline Phosphatase Albumin Urine WBC (Auto) 01/16/17 01/16/17 01/17/17 13:45 21:39 04:10 WBC 4.4 L RBC 2.98 L Hgb 7.7 L Hct 23.3 L MCV 78 L MCH 26 L RDW 18.1 H Plt Count Lymph % (Auto) [place] % (Auto) Eos % (Auto) Seg Neutrophils % Seg Neuts % (Manual) Lymphocytes % (Manual) Seg Neutrophils # Seg Neutrophils # Man Lymphocytes # (Manual) POC ABG pH ABG pH POC ABG pCO2 POC ABG pO2 ABG pO2 ABG HCO3 ABG Base Excess ABG Hemoglobin Oxyhemoglobin Sodium Potassium Chloride Carbon Dioxide BUN Creatinine Glucose POC Glucose 236 H 258 H Lactic Acid Calcium AST Alkaline Phosphatase Albumin Urine WBC (Auto) 01/17/17 01/17/17 01/17/17 04:10 04:35 12:23 WBC RBC Hgb Hct MCV MCH RDW Plt Count Lymph % (Auto) [place] % (Auto) Eos % (Auto) Seg Neutrophils % Seg Neuts % (Manual) Lymphocytes % (Manual) Seg Neutrophils # Seg Neutrophils # Man Lymphocytes # (Manual) POC ABG pH ABG pH POC ABG pCO2 POC ABG pO2 ABG pO2 160.3 H ABG HCO3 ABG Base Excess -2.3 L ABG Hemoglobin 7.9 L Oxyhemoglobin Sodium Potassium 3.3 L Chloride 108.7 H Carbon Dioxide 20 L BUN 8 L Creatinine Glucose 202 H POC Glucose 321 H Lactic Acid Calcium 7.6 L AST Alkaline Phosphatase Albumin Urine WBC (Auto) 01/17/17 01/18/17 01/18/17 16:01 05:07 12:09 WBC RBC Hgb Hct MCV MCH RDW Plt Count Lymph % (Auto) [place] % (Auto) Eos % (Auto) Seg Neutrophils % Seg Neuts % (Manual) Lymphocytes % (Manual) Seg Neutrophils # Seg Neutrophils # Man Lymphocytes # (Manual) POC ABG pH ABG pH POC ABG pCO2 POC ABG pO2 ABG pO2 ABG HCO3 ABG Base Excess ABG Hemoglobin Oxyhemoglobin Sodium Potassium Chloride Carbon Dioxide BUN Creatinine Glucose POC Glucose 239 H 155 H 203 H Lactic Acid Calcium AST Alkaline Phosphatase Albumin Urine WBC (Auto) 01/18/17 01/18/17 01/19/17 17:54 23:43 04:28 WBC RBC Hgb Hct MCV MCH RDW Plt Count Lymph % (Auto) [place] % (Auto) Eos % (Auto) Seg Neutrophils % Seg Neuts % (Manual) Lymphocytes % (Manual) Seg Neutrophils # Seg Neutrophils # Man Lymphocytes # (Manual) POC ABG pH ABG pH POC ABG pCO2 POC ABG pO2 ABG pO2 ABG HCO3 ABG Base Excess ABG Hemoglobin Oxyhemoglobin Sodium Potassium Chloride Carbon Dioxide BUN Creatinine Glucose POC Glucose 132 H 125 H 182 H Lactic Acid Calcium AST Alkaline Phosphatase Albumin Urine WBC (Auto) 01/19/17 01/19/17 01/20/17 12:11 17:23 00:12 WBC RBC Hgb Hct MCV MCH RDW Plt Count Lymph % (Auto) [place] % (Auto) Eos % (Auto) Seg Neutrophils % Seg Neuts % (Manual) Lymphocytes % (Manual) Seg Neutrophils # Seg Neutrophils # Man Lymphocytes # (Manual) POC ABG pH ABG pH POC ABG pCO2 POC ABG pO2 ABG pO2 ABG HCO3 ABG Base Excess ABG Hemoglobin Oxyhemoglobin Sodium Potassium Chloride Carbon Dioxide BUN Creatinine Glucose POC Glucose 153 H 66 L 139 H Lactic Acid Calcium AST Alkaline Phosphatase Albumin Urine WBC (Auto) 01/20/17 01/20/17 01/20/17 05:44 11:48 17:42 WBC RBC Hgb Hct MCV MCH RDW Plt Count Lymph % (Auto) [place] % (Auto) Eos % (Auto) Seg Neutrophils % Seg Neuts % (Manual) Lymphocytes % (Manual) Seg Neutrophils # Seg Neutrophils # Man Lymphocytes # (Manual) POC ABG pH ABG pH POC ABG pCO2 POC ABG pO2 ABG pO2 ABG HCO3 ABG Base Excess ABG Hemoglobin Oxyhemoglobin Sodium Potassium Chloride Carbon Dioxide BUN Creatinine Glucose POC Glucose 176 H 218 H 132 H Lactic Acid Calcium AST Alkaline Phosphatase Albumin Urine WBC (Auto) 01/20/17 01/21/17 01/21/17 23:43 05:34 11:17 WBC RBC Hgb Hct MCV MCH RDW Plt Count Lymph % (Auto) [place] % (Auto) Eos % (Auto) Seg Neutrophils % Seg Neuts % (Manual) Lymphocytes % (Manual) Seg Neutrophils # Seg Neutrophils # Man Lymphocytes # (Manual) POC ABG pH ABG pH POC ABG pCO2 POC ABG pO2 ABG pO2 ABG HCO3 ABG Base Excess ABG Hemoglobin Oxyhemoglobin Sodium Potassium Chloride Carbon Dioxide BUN Creatinine Glucose POC Glucose 178 H 106 H 213 H Lactic Acid Calcium AST Alkaline Phosphatase Albumin Urine WBC (Auto) 01/21/17 01/22/17 01/22/17 23:37 04:00 04:00 WBC RBC 3.26 L Hgb 8.3 L Hct 25.5 L MCV 78 L MCH 25 L RDW 17.9 H Plt Count Lymph % (Auto) [place] % (Auto) 7.9 H Eos % (Auto) 6.2 H Seg Neutrophils % Seg Neuts % (Manual) Lymphocytes % (Manual) Seg Neutrophils # Seg Neutrophils # Man Lymphocytes # (Manual) POC ABG pH ABG pH POC ABG pCO2 POC ABG pO2 ABG pO2 ABG HCO3 ABG Base Excess ABG Hemoglobin Oxyhemoglobin Sodium Potassium Chloride 95.5 L Carbon Dioxide 31 H D BUN Creatinine Glucose 134 H POC Glucose 140 H Lactic Acid Calcium AST 44 H Alkaline Phosphatase 379 H Albumin 2.7 L Urine WBC (Auto) 01/22/17 01/22/17 01/22/17 04:58 12:12 18:12 WBC RBC Hgb Hct MCV MCH RDW Plt Count Lymph % (Auto) [place] % (Auto) Eos % (Auto) Seg Neutrophils % Seg Neuts % (Manual) Lymphocytes % (Manual) Seg Neutrophils # Seg Neutrophils # Man Lymphocytes # (Manual) POC ABG pH ABG pH POC ABG pCO2 POC ABG pO2 ABG pO2 ABG HCO3 ABG Base Excess ABG Hemoglobin Oxyhemoglobin Sodium Potassium Chloride Carbon Dioxide BUN Creatinine Glucose POC Glucose 146 H 255 H 182 H Lactic Acid Calcium AST Alkaline Phosphatase Albumin Urine WBC (Auto) 01/22/17 01/23/17 01/23/17 23:39 04:43 12:12 WBC RBC Hgb Hct MCV MCH RDW Plt Count Lymph % (Auto) [place] % (Auto) Eos % (Auto) Seg Neutrophils % Seg Neuts % (Manual) Lymphocytes % (Manual) Seg Neutrophils # Seg Neutrophils # Man Lymphocytes # (Manual) POC ABG pH ABG pH POC ABG pCO2 POC ABG pO2 ABG pO2 ABG HCO3 ABG Base Excess ABG Hemoglobin Oxyhemoglobin Sodium Potassium Chloride Carbon Dioxide BUN Creatinine Glucose POC Glucose 134 H 218 H 128 H Lactic Acid Calcium AST Alkaline Phosphatase Albumin Urine WBC (Auto) 01/23/17 01/24/17 01/24/17 17:36 00:08 05:16 WBC RBC Hgb Hct MCV MCH RDW Plt Count Lymph % (Auto) [place] % (Auto) Eos % (Auto) Seg Neutrophils % Seg Neuts % (Manual) Lymphocytes % (Manual) Seg Neutrophils # Seg Neutrophils # Man Lymphocytes # (Manual) POC ABG pH ABG pH POC ABG pCO2 POC ABG pO2 ABG pO2 ABG HCO3 ABG Base Excess ABG Hemoglobin Oxyhemoglobin Sodium Potassium Chloride Carbon Dioxide BUN Creatinine Glucose POC Glucose 156 H 129 H 169 H Lactic Acid Calcium AST Alkaline Phosphatase Albumin Urine WBC (Auto) 01/24/17 01/24/17 01/24/17 11:40 17:43 23:23 WBC RBC Hgb Hct MCV MCH RDW Plt Count Lymph % (Auto) [place] % (Auto) Eos % (Auto) Seg Neutrophils % Seg Neuts % (Manual) Lymphocytes % (Manual) Seg Neutrophils # Seg Neutrophils # Man Lymphocytes # (Manual) POC ABG pH ABG pH POC ABG pCO2 POC ABG pO2 ABG pO2 ABG HCO3 ABG Base Excess ABG Hemoglobin Oxyhemoglobin Sodium Potassium Chloride Carbon Dioxide BUN Creatinine Glucose POC Glucose 187 H 215 H 222 H Lactic Acid Calcium AST Alkaline Phosphatase Albumin Urine WBC (Auto) 01/25/17 01/25/17 01/25/17 04:56 11:52 17:37 WBC RBC Hgb Hct MCV MCH RDW Plt Count Lymph % (Auto) [place] % (Auto) Eos % (Auto) Seg Neutrophils % Seg Neuts % (Manual) Lymphocytes % (Manual) Seg Neutrophils # Seg Neutrophils # Man Lymphocytes # (Manual) POC ABG pH ABG pH POC ABG pCO2 POC ABG pO2 ABG pO2 ABG HCO3 ABG Base Excess ABG Hemoglobin Oxyhemoglobin Sodium Potassium Chloride Carbon Dioxide BUN Creatinine Glucose POC Glucose 210 H 284 H 218 H Lactic Acid Calcium AST Alkaline Phosphatase Albumin Urine WBC (Auto) 01/26/17 01/26/17 01/26/17 00:02 05:33 12:17 WBC RBC Hgb Hct MCV MCH RDW Plt Count Lymph % (Auto) [place] % (Auto) Eos % (Auto) Seg Neutrophils % Seg Neuts % (Manual) Lymphocytes % (Manual) Seg Neutrophils # Seg Neutrophils # Man Lymphocytes # (Manual) POC ABG pH ABG pH POC ABG pCO2 POC ABG pO2 ABG pO2 ABG HCO3 ABG Base Excess ABG Hemoglobin Oxyhemoglobin Sodium Potassium Chloride Carbon Dioxide BUN Creatinine Glucose POC Glucose 192 H 199 H 227 H Lactic Acid Calcium AST Alkaline Phosphatase Albumin Urine WBC (Auto) 01/26/17 01/26/17 01/27/17 17:50 23:57 05:31 WBC RBC Hgb Hct MCV MCH RDW Plt Count Lymph % (Auto) [place] % (Auto) Eos % (Auto) Seg Neutrophils % Seg Neuts % (Manual) Lymphocytes % (Manual) Seg Neutrophils # Seg Neutrophils # Man Lymphocytes # (Manual) POC ABG pH ABG pH POC ABG pCO2 POC ABG pO2 ABG pO2 ABG HCO3 ABG Base Excess ABG Hemoglobin Oxyhemoglobin Sodium Potassium Chloride Carbon Dioxide BUN Creatinine Glucose POC Glucose 229 H 186 H 285 H Lactic Acid Calcium AST Alkaline Phosphatase Albumin Urine WBC (Auto) 01/27/17 01/27/17 01/27/17 11:42 17:47 23:58 WBC RBC Hgb Hct MCV MCH RDW Plt Count Lymph % (Auto) [place] % (Auto) Eos % (Auto) Seg Neutrophils % Seg Neuts % (Manual) Lymphocytes % (Manual) Seg Neutrophils # Seg Neutrophils # Man Lymphocytes # (Manual) POC ABG pH ABG pH POC ABG pCO2 POC ABG pO2 ABG pO2 ABG HCO3 ABG Base Excess ABG Hemoglobin Oxyhemoglobin Sodium Potassium Chloride Carbon Dioxide BUN Creatinine Glucose POC Glucose 260 H 329 H 225 H Lactic Acid Calcium AST Alkaline Phosphatase Albumin Urine WBC (Auto) 01/27/17 01/27/17 01/28/17 Unknown Unknown 03:44 WBC 12.1 H RBC 3.28 L 3.14 L Hgb 8.5 L 8.2 L Hct 25.5 L 24.1 L MCV 78 L 77 L MCH 26 L 26 L RDW 16.8 H 16.9 H Plt Count 601 H 567 H Lymph % (Auto) [place] % (Auto) Eos % (Auto) Seg Neutrophils % Seg Neuts % (Manual) Lymphocytes % (Manual) Seg Neutrophils # Seg Neutrophils # Man Lymphocytes # (Manual) POC ABG pH ABG pH POC ABG pCO2 POC ABG pO2 ABG pO2 ABG HCO3 ABG Base Excess ABG Hemoglobin Oxyhemoglobin Sodium 128 L Potassium 5.4 H Chloride 87.5 L Carbon Dioxide BUN 44 H Creatinine Glucose 250 H POC Glucose Lactic Acid Calcium AST Alkaline Phosphatase Albumin Urine WBC (Auto) 01/28/17 01/28/17 01/28/17 03:44 11:43 16:47 WBC RBC Hgb Hct MCV MCH RDW Plt Count Lymph % (Auto) [place] % (Auto) Eos % (Auto) Seg Neutrophils % Seg Neuts % (Manual) Lymphocytes % (Manual) Seg Neutrophils # Seg Neutrophils # Man Lymphocytes # (Manual) POC ABG pH ABG pH POC ABG pCO2 POC ABG pO2 ABG pO2 ABG HCO3 ABG Base Excess ABG Hemoglobin Oxyhemoglobin Sodium Potassium Chloride Carbon Dioxide BUN 42 H Creatinine Glucose 128 H POC Glucose 351 H 249 H Lactic Acid Calcium AST Alkaline Phosphatase Albumin Urine WBC (Auto) 01/28/17 01/29/17 01/29/17 17:52 05:25 05:25 WBC 13.6 H RBC 3.25 L Hgb 8.3 L Hct 25.1 L MCV 77 L MCH 26 L RDW 16.8 H Plt Count 514 H Lymph % (Auto) [place] % (Auto) Eos % (Auto) Seg Neutrophils % Seg Neuts % (Manual) Lymphocytes % (Manual) Seg Neutrophils # Seg Neutrophils # Man Lymphocytes # (Manual) POC ABG pH ABG pH POC ABG pCO2 POC ABG pO2 ABG pO2 ABG HCO3 ABG Base Excess ABG Hemoglobin Oxyhemoglobin Sodium Potassium Chloride 97.8 L Carbon Dioxide BUN 34 H Creatinine Glucose 222 H POC Glucose Lactic Acid Calcium AST Alkaline Phosphatase Albumin Urine WBC (Auto) > 182.0 H 01/29/17 01/29/17 01/29/17 09:32 11:56 18:11 WBC RBC Hgb Hct MCV MCH RDW Plt Count Lymph % (Auto) [place] % (Auto) Eos % (Auto) Seg Neutrophils % Seg Neuts % (Manual) Lymphocytes % (Manual) Seg Neutrophils # Seg Neutrophils # Man Lymphocytes # (Manual) POC ABG pH ABG pH POC ABG pCO2 POC ABG pO2 ABG pO2 ABG HCO3 ABG Base Excess ABG Hemoglobin Oxyhemoglobin Sodium Potassium Chloride Carbon Dioxide BUN Creatinine Glucose POC Glucose 261 H 215 H Lactic Acid 2.50 H* Calcium AST Alkaline Phosphatase Albumin Urine WBC (Auto) 01/29/17 01/30/17 01/30/17 23:55 05:31 05:31 WBC 15.2 H RBC 3.09 L Hgb 7.9 L Hct 23.9 L MCV 77 L MCH 26 L RDW 16.9 H Plt Count 569 H Lymph % (Auto) [place] % (Auto) Eos % (Auto) Seg Neutrophils % Seg Neuts % (Manual) Lymphocytes % (Manual) Seg Neutrophils # Seg Neutrophils # Man Lymphocytes # (Manual) POC ABG pH ABG pH POC ABG pCO2 POC ABG pO2 ABG pO2 ABG HCO3 ABG Base Excess ABG Hemoglobin Oxyhemoglobin Sodium Potassium Chloride Carbon Dioxide BUN 24 H Creatinine Glucose 235 H POC Glucose 176 H Lactic Acid Calcium AST Alkaline Phosphatase Albumin Urine WBC (Auto) 01/30/17 01/30/17 01/30/17 05:34 11:38 17:58 WBC RBC Hgb Hct MCV MCH RDW Plt Count Lymph % (Auto) [place] % (Auto) Eos % (Auto) Seg Neutrophils % Seg Neuts % (Manual) Lymphocytes % (Manual) Seg Neutrophils # Seg Neutrophils # Man Lymphocytes # (Manual) POC ABG pH ABG pH POC ABG pCO2 POC ABG pO2 ABG pO2 ABG HCO3 ABG Base Excess ABG Hemoglobin Oxyhemoglobin Sodium Potassium Chloride Carbon Dioxide BUN Creatinine Glucose POC Glucose 243 H 298 H 208 H Lactic Acid Calcium AST Alkaline Phosphatase Albumin Urine WBC (Auto) 01/30/17 01/31/17 01/31/17 23:29 04:39 04:39 WBC 11.4 H RBC 3.22 L Hgb 8.2 L Hct 24.9 L MCV 78 L MCH 25 L RDW 17.2 H Plt Count 576 H Lymph % (Auto) [place] % (Auto) Eos % (Auto) Seg Neutrophils % Seg Neuts % (Manual) Lymphocytes % (Manual) Seg Neutrophils # Seg Neutrophils # Man Lymphocytes # (Manual) POC ABG pH ABG pH POC ABG pCO2 POC ABG pO2 ABG pO2 ABG HCO3 ABG Base Excess ABG Hemoglobin Oxyhemoglobin Sodium Potassium Chloride Carbon Dioxide BUN Creatinine 0.7 L Glucose 223 H POC Glucose 245 H Lactic Acid Calcium AST Alkaline Phosphatase Albumin Urine WBC (Auto) 01/31/17 01/31/17 01/31/17 05:57 12:23 17:41 WBC RBC Hgb Hct MCV MCH RDW Plt Count Lymph % (Auto) [place] % (Auto) Eos % (Auto) Seg Neutrophils % Seg Neuts % (Manual) Lymphocytes % (Manual) Seg Neutrophils # Seg Neutrophils # Man Lymphocytes # (Manual) POC ABG pH ABG pH POC ABG pCO2 POC ABG pO2 ABG pO2 ABG HCO3 ABG Base Excess ABG Hemoglobin Oxyhemoglobin Sodium Potassium Chloride Carbon Dioxide BUN Creatinine Glucose POC Glucose 264 H 252 H 208 H Lactic Acid Calcium AST Alkaline Phosphatase Albumin Urine WBC (Auto) 01/31/17 01/31/17 02/01/17 18:55 22:59 03:38 WBC RBC 2.81 L Hgb 7.4 L Hct 22.1 L MCV 79 L MCH 27 L RDW 17.0 H Plt Count 540 H Lymph % (Auto) [place] % (Auto) Eos % (Auto) Seg Neutrophils % Seg Neuts % (Manual) Lymphocytes % (Manual) Seg Neutrophils # Seg Neutrophils # Man Lymphocytes # (Manual) POC ABG pH ABG pH POC ABG pCO2 32.8 L POC ABG pO2 ABG pO2 ABG HCO3 ABG Base Excess ABG Hemoglobin Oxyhemoglobin Sodium Potassium Chloride Carbon Dioxide BUN Creatinine Glucose POC Glucose 40 L Lactic Acid Calcium AST Alkaline Phosphatase Albumin Urine WBC (Auto) 02/01/17 02/01/17 02/01/17 03:38 05:17 12:19 WBC RBC Hgb Hct MCV MCH RDW Plt Count Lymph % (Auto) [place] % (Auto) Eos % (Auto) Seg Neutrophils % Seg Neuts % (Manual) Lymphocytes % (Manual) Seg Neutrophils # Seg Neutrophils # Man Lymphocytes # (Manual) POC ABG pH ABG pH POC ABG pCO2 POC ABG pO2 ABG pO2 ABG HCO3 ABG Base Excess ABG Hemoglobin Oxyhemoglobin Sodium Potassium Chloride Carbon Dioxide 21 L BUN Creatinine 0.7 L Glucose POC Glucose 140 H 213 H Lactic Acid Calcium AST Alkaline Phosphatase Albumin Urine WBC (Auto) 02/01/17 02/01/17 02/02/17 16:44 23:59 05:14 WBC RBC Hgb Hct MCV MCH RDW Plt Count Lymph % (Auto) [place] % (Auto) Eos % (Auto) Seg Neutrophils % Seg Neuts % (Manual) Lymphocytes % (Manual) Seg Neutrophils # Seg Neutrophils # Man Lymphocytes # (Manual) POC ABG pH ABG pH POC ABG pCO2 POC ABG pO2 ABG pO2 ABG HCO3 ABG Base Excess ABG Hemoglobin Oxyhemoglobin Sodium Potassium Chloride Carbon Dioxide BUN Creatinine Glucose POC Glucose 172 H 181 H 194 H Lactic Acid Calcium AST Alkaline Phosphatase Albumin Urine WBC (Auto) 02/02/17 02/02/17 02/02/17 11:24 11:46 11:46 WBC RBC 2.94 L Hgb 7.5 L Hct 23.0 L MCV 78 L MCH 25 L RDW 16.9 H Plt Count 520 H Lymph % (Auto) [place] % (Auto) Eos % (Auto) Seg Neutrophils % Seg Neuts % (Manual) Lymphocytes % (Manual) Seg Neutrophils # Seg Neutrophils # Man Lymphocytes # (Manual) POC ABG pH ABG pH POC ABG pCO2 POC ABG pO2 ABG pO2 ABG HCO3 ABG Base Excess ABG Hemoglobin Oxyhemoglobin Sodium Potassium Chloride Carbon Dioxide BUN Creatinine 0.6 L Glucose 189 H POC Glucose 209 H Lactic Acid Calcium 8.1 L AST Alkaline Phosphatase Albumin Urine WBC (Auto) 02/02/17 02/02/17 17:47 23:32 WBC RBC Hgb Hct MCV MCH RDW Plt Count Lymph % (Auto) [place] % (Auto) Eos % (Auto) Seg Neutrophils % Seg Neuts % (Manual) Lymphocytes % (Manual) Seg Neutrophils # Seg Neutrophils # Man Lymphocytes # (Manual) POC ABG pH ABG pH POC ABG pCO2 POC ABG pO2 ABG pO2 ABG HCO3 ABG Base Excess ABG Hemoglobin Oxyhemoglobin Sodium Potassium Chloride Carbon Dioxide BUN Creatinine Glucose POC Glucose 147 H 176 H Lactic Acid Calcium AST Alkaline Phosphatase Albumin Urine WBC (Auto)
--- NOTE | 2017-02-03 18:04 | Progress Note ---
Assessment and Plan Assessment and plan: 51 YO Male with CKD,HTN, DM presents to ED for evaluation. Pt unable to provide history. Pt history taken from ED staff, and medical records. Pt found down and unresponsive by his neighbor, who subsequently called EMS. Upon arrival, patient found unresponsive on the floor with a serum glucose of 21, and covered with ants with insulin syringes around him and a bottle of atenolol which still had many pills remaining, patient has a known history of alcohol abuse and delirium tremens. The patient was administered D5 approximate 500 mls during transport without change in mental status/level of consciousness. Pt seen and evaluated in ED was was found to be unable to protect his airway. Pt intubated and placed on vent support. Pt found to have evidence of hypothyroidism. She was started on Synthroid. He has since been in the ICU. The patient continued to deteriorate. He is in this grade 4 coma, brain imaging does not show any reversible cause. The patient remains in a persistent vegetative states. Sepsis has been ruled out. director of perioperative services try to locate family, even spoke to the family who he lives with. They themselves were unaware of any family members. After ethics committee meeting on the patient. The decision was made to make him DO NOT RESUSCITATE and to transfer him to hospice. Given his very poor prognosis and poor likelihood of recovery. It was decided that was not his best interest to get trach and PEG. Therefore he'll be transferred to the hospice intubated, at this time he is COMFORT CARE as per Ethics committee recommendation. Diagnosis Hypoglycemic brain injury Persistent vegetative state Metabolic encephalopathy Hypoglycemia/hypothermia Acute respiratory failure mechanical ventilator greater than 96 hours Sepsis ruled out, UTI ruled out hyponatremia, Hypothyroidism DNR- awaiting hospice placement, awaiting guardianship from the state to give consent, as has no family to give consent The high probability of a clinically significant, sudden or life threatening deterioration of the [neurologic, respiratory and CV] system(s) required my full and direct attention, intervention and personal management. The aggregate critical care time was [33] minutes. This time is in addition to time spent performing reported procedures but includes the following: [] Data Review and interpretation [] Patient assessment and monitoring of vital signs [] Documentation [] Medication orders and management History Interval history: patient remains comatose, no movement of extremities Hospitalist Physical - Physical exam Narrative exam: General: comatose HEENT: Moist mucous membranes, , no lymphadenopathy Neck: supple Cardiac: S1-S2 heard Lungs: mech ventilated breath sounds Abdomen: soft , nontender, nondistended, bowel sounds positive Extremities: no edema clubbing or cyanosis Skin: no rash or lesions Neurologic: opens eyes, has corneal reflex, No gag reflex, pupils minimally responsive, no response to deep painful stimuli - Constitutional Vitals: Temp Pulse Resp BP Pulse Ox 98.5 F 63 17 154/73 97 02/03/17 15:45 02/03/17 17:01 02/03/17 17:01 02/03/17 17:01 02/03/17 17:01 Results - Labs CBC & Chem 7: 02/02/17 11:46 02/02/17 11:46 Labs: Laboratory Last Values WBC 7.9 K/mm3 (4.5-11.0) 02/02/17 11:46 RBC 2.94 M/mm3 (3.65-5.03) L 02/02/17 11:46 Hgb 7.5 gm/dl (11.8-15.2) L 02/02/17 11:46 Hct 23.0 % (35.5-45.6) L 02/02/17 11:46 MCV 78 fl (84-94) L 02/02/17 11:46 MCH 25 pg (28-32) L 02/02/17 11:46 MCHC 32 % (32-34) 02/02/17 11:46 RDW 16.9 % (13.2-15.2) H 02/02/17 11:46 Plt Count 520 K/mm3 (140-440) H 02/02/17 11:46 Lymph % (Auto) 34.4 % (13.4-35.0) 01/22/17 04:00 [place] % (Auto) 7.9 % (0.0-7.3) H 01/22/17 04:00 Eos % (Auto) 6.2 % (0.0-4.3) H 01/22/17 04:00 Baso % (Auto) 1.1 % (0.0-1.8) 01/22/17 04:00 Lymph # 1.8 K/mm3 (1.2-5.4) 01/22/17 04:00 [place] # 0.4 K/mm3 (0.0-0.8) 01/22/17 04:00 Eos # 0.3 K/mm3 (0.0-0.4) 01/22/17 04:00 Baso # 0.1 K/mm3 (0.0-0.1) 01/22/17 04:00 Add Manual Diff Complete 01/10/17 04:30 Total Counted 100 01/10/17 04:30 Seg Neutrophils % 50.4 % (40.0-70.0) 01/22/17 04:00 Seg Neuts % (Manual) 88.0 % (40.0-70.0) H 01/10/17 04:30 Band Neutrophils % 7.0 % 01/10/17 04:30 Lymphocytes % (Manual) 4.0 % (13.4-35.0) L 01/10/17 04:30 Reactive Lymphs % (Man) 0 % 01/10/17 04:30 Monocytes % (Manual) 1.0 % (0.0-7.3) 01/10/17 04:30 Eosinophils % (Manual) 0 % (0.0-4.3) 01/10/17 04:30 Basophils % (Manual) 0 % (0.0-1.8) 01/10/17 04:30 Metamyelocytes % 0 % 01/10/17 04:30 Myelocytes % 0 % 01/10/17 04:30 Promyelocytes % 0 % 01/10/17 04:30 Blast Cells % 0 % 01/10/17 04:30 Nucleated RBC % Not Reportable 01/10/17 04:30 Seg Neutrophils # 2.7 K/mm3 (1.8-7.7) 01/22/17 04:00 Seg Neutrophils # Man 21.2 K/mm3 (1.8-7.7) H 01/10/17 04:30 Band Neutrophils # 1.7 K/mm3 01/10/17 04:30 Lymphocytes # (Manual) 1.0 K/mm3 (1.2-5.4) L 01/10/17 04:30 Abs React Lymphs (Man) 0.0 K/mm3 01/10/17 04:30 Monocytes # (Manual) 0.2 K/mm3 (0.0-0.8) 01/10/17 04:30 Eosinophils # (Manual) 0.0 K/mm3 (0.0-0.4) 01/10/17 04:30 Basophils # (Manual) 0.0 K/mm3 (0.0-0.1) 01/10/17 04:30 Metamyelocytes # 0.0 K/mm3 01/10/17 04:30 Myelocytes # 0.0 K/mm3 01/10/17 04:30 Promyelocytes # 0.0 K/mm3 01/10/17 04:30 Blast Cells # 0.0 K/mm3 01/10/17 04:30 WBC Morphology Not Reportable 01/10/17 04:30 Hypersegmented Neuts Not Reportable 01/10/17 04:30 Hyposegmented Neuts Not Reportable 01/10/17 04:30 Hypogranular Neuts Not Reportable 01/10/17 04:30 Smudge Cells Not Reportable 01/10/17 04:30 Toxic Granulation Not Reportable 01/10/17 04:30 Toxic Vacuolation Not Reportable 01/10/17 04:30 Dohle Bodies Not Reportable 01/10/17 04:30 Pelger-Huet Anomaly Not Reportable 01/10/17 04:30 [place] Rods Not Reportable 01/10/17 04:30 Platelet Estimate Consistent w auto 01/10/17 04:30 Clumped Platelets Not Reportable 01/10/17 04:30 Plt Clumps, EDTA Not Reportable 01/10/17 04:30 Large Platelets Not Reportable 01/10/17 04:30 Giant Platelets Not Reportable 01/10/17 04:30 Platelet Satelliting Not Reportable 01/10/17 04:30 Plt Morphology Comment Not Reportable 01/10/17 04:30 RBC Morphology Not Reportable 01/10/17 04:30 Dimorphic RBCs Not Reportable 01/10/17 04:30 Polychromasia Not Reportable 01/10/17 04:30 Hypochromasia 1+ 01/10/17 04:30 Poikilocytosis Not Reportable 01/10/17 04:30 Anisocytosis Not Reportable 01/10/17 04:30 Microcytosis Not Reportable 01/10/17 04:30 Macrocytosis Not Reportable 01/10/17 04:30 Spherocytes Not Reportable 01/10/17 04:30 Pappenheimer Bodies Not Reportable 01/10/17 04:30 Sickle Cells Not Reportable 01/10/17 04:30 Target Cells Not Reportable 01/10/17 04:30 Tear Drop Cells Not Reportable 01/10/17 04:30 Ovalocytes Not Reportable 01/10/17 04:30 Helmet Cells Not Reportable 01/10/17 04:30 [place] Bodies Not Reportable 01/10/17 04:30 [place] Rings Not Reportable 01/10/17 04:30 Petros Cells Not Reportable 01/10/17 04:30 Bite Cells Not Reportable 01/10/17 04:30 Crenated Cell Not Reportable 01/10/17 04:30 Elliptocytes Not Reportable 01/10/17 04:30 Acanthocytes (Spur) Not Reportable 01/10/17 04:30 Rouleaux Not Reportable 01/10/17 04:30 Hemoglobin C Crystals Not Reportable 01/10/17 04:30 Schistocytes Not Reportable 01/10/17 04:30 Malaria parasites Not Reportable 01/10/17 04:30 [place] Bodies Not Reportable 01/10/17 04:30 Hem Pathologist Commnt No 01/10/17 04:30 PT 14.1 Sec. (12.2-14.9) 01/17/17 04:10 INR 1.04 (0.87-1.13) 01/17/17 04:10 APTT 36.6 Sec. (24.2-36.6) 01/17/17 04:10 POC ABG pH 7.442 (7.35-7.45) 01/31/17 18:55 ABG pH 7.420 pH Units (7.350-7.450) 01/17/17 04:35 POC ABG pCO2 32.8 (35-45) L 01/31/17 18:55 ABG pCO2 34.5 mm Hg 01/17/17 04:35 POC ABG pO2 82 (80-105) 01/31/17 18:55 ABG pO2 160.3 mm Hg (80.0-90.0) H 01/17/17 04:35 POC ABG HCO3 22.4 01/31/17 18:55 ABG HCO3 21.9 mmol/L (20.0-26.0) 01/17/17 04:35 POC ABG Total CO2 23 01/31/17 18:55 POC ABG O2 Sat 97 01/31/17 18:55 ABG O2 Saturation 99.0 % (95.0-99.0) 01/17/17 04:35 ABG O2 Content 11.1 (0.0-44) 01/17/17 04:35 POC ABG Base Excess -2 01/31/17 18:55 ABG Base Excess -2.3 mmol/L (-2.0-3.0) L 01/17/17 04:35 ABG Hemoglobin 7.9 gm/dl (14.0-18.0) L 01/17/17 04:35 ABG Carboxyhemoglobin 1.5 % (0.0-5.0) 01/17/17 04:35 ABG Methemoglobin 0.5 % (0.0-1.5) 01/17/17 04:35 VBG pH 7.284 (7.320-7.420) L 01/09/17 10:16 Oxyhemoglobin 97.1 % (95.0-99.0) 01/17/17 04:35 FiO2 25 % 01/31/17 18:55 Sodium 137 mmol/L (137-145) 02/02/17 11:46 Potassium 3.7 mmol/L (3.6-5.0) 02/02/17 11:46 Chloride 102.3 mmol/L (98-107) 02/02/17 11:46 Carbon Dioxide 22 mmol/L (22-30) 02/02/17 11:46 Anion Gap 16 mmol/L 02/02/17 11:46 BUN 13 mg/dL (9-20) 02/02/17 11:46 Creatinine 0.6 mg/dL (0.8-1.5) L 02/02/17 11:46 Estimated GFR > 60 ml/min 02/02/17 11:46 BUN/Creatinine Ratio 22 % 02/02/17 11:46 Glucose 189 mg/dL (75-100) H 02/02/17 11:46 POC Glucose 189 (70-105) H 02/03/17 16:59 Lactic Acid 0.80 mmol/L (0.7-2.0) 01/30/17 11:49 Calcium 8.1 mg/dL (8.4-10.2) L 02/02/17 11:46 Phosphorus 3.60 mg/dL (2.5-4.5) 01/22/17 04:00 Magnesium 2.10 mg/dL (1.7-2.3) 01/22/17 04:00 Total Bilirubin 0.30 mg/dL (0.1-1.2) 01/22/17 04:00 AST 44 units/L (5-40) H 01/22/17 04:00 ALT 23 units/L (7-56) 01/22/17 04:00 Alkaline Phosphatase 379 units/L (35-129) H 01/22/17 04:00 Ammonia 35.0 umol/L (25-60) 01/09/17 10:16 Total Creatine Kinase 135 units/L (55-170) 01/09/17 10:16 CK-MB (CK-2) 7.1 ng/mL (0.0-4.0) H 01/09/17 10:16 CK-MB (CK-2) Rel Index 5.2 (0-4) H 01/09/17 10:16 Troponin T < 0.010 ng/mL (0.00-0.029) 01/09/17 10:16 NT-Pro-B Natriuret Pep 602.9 pg/mL (0-900) 01/09/17 10:16 Total Protein 7.9 g/dL (6.3-8.2) 01/22/17 04:00 Albumin 2.7 g/dL (3.9-5) L 01/22/17 04:00 Albumin/Globulin Ratio 0.5 % 01/22/17 04:00 TSH 52.800 mlU/mL (0.270-4.200) H 01/09/17 10:16 Free T4 0.78 ng/dL (0.76-1.46) 01/09/17 10:16 Total Cortisol 54.8 mcg/dL () 01/09/17 16:19 Urine Color Yellow (Yellow) 01/28/17 17:52 Urine Turbidity Clear (Clear) 01/28/17 17:52 Urine pH 6.0 (5.0-7.0) 01/28/17 17:52 Ur Specific [place] 1.016 (1.003-1.030) 01/28/17 17:52 Urine Protein 100 mg/dl mg/dL (Negative) 01/28/17 17:52 Urine Glucose (UA) >=500 mg/dL (Negative) 01/28/17 17:52 Urine Ketones Neg mg/dL (Negative) 01/28/17 17:52 Urine Blood Sm (Negative) 01/28/17 17:52 Urine Nitrite Neg (Negative) 01/28/17 17:52 Urine Bilirubin Neg (Negative) 01/28/17 17:52 Urine Urobilinogen < 2.0 mg/dL (<2.0) 01/28/17 17:52 Ur Leukocyte Esterase Lg (Negative) 01/28/17 17:52 Urine WBC (Auto) > 182.0 /HPF (0.0-6.0) H 01/28/17 17:52 Urine RBC (Auto) 113.0 /HPF (0.0-6.0) 01/28/17 17:52 Urine Bacteria (Auto) 2+ /HPF (Negative) 01/28/17 17:52 Urine WBC Clumps 3+ /HPF 01/28/17 17:52 Urine Mucus Few /HPF 01/14/17 14:07 Urine Yeast (Budding) 3+ /HPF 01/14/17 14:07 Salicylates < 0.3 mg/dL (2.8-20.0) L 01/09/17 10:16 Urine Opiates Screen Presumptive negative 01/09/17 10:23 Urine Methadone Screen Presumptive negative 01/09/17 10:23 Acetaminophen < 15.0 ug/mL (10.0-30.0) 01/09/17 10:16 Ur Barbiturates Screen Presumptive negative 01/09/17 10:23 Ur Phencyclidine Scrn Presumptive negative 01/09/17 10:23 Ur Amphetamines Screen Presumptive negative 01/09/17 10:23 U Benzodiazepines Scrn Presumptive negative 01/09/17 10:23 Urine Cocaine Screen Presumptive negative 01/09/17 10:23 U Marijuana (THC) Screen Presumptive negative 01/09/17 10:23 Drugs of Abuse Note Disclamer 01/09/17 10:23 Plasma/Serum Alcohol < 0.01 gm% (0-0.07) 01/09/17 10:16
[2017-02-04] MEDS: NOVOLOG SUB-Q SCH ×4 (04:49→17:24)
[2017-02-04] MEDS: NORMODYNE PO SCH ×2 (09:09→22:24)
[2017-02-04] MEDS: SYNTHROID PO SCH (09:09)
[2017-02-04] MEDS: PEPCID PO SCH ×2 (09:10→22:24)
[2017-02-04] MEDS: HEPARIN SUB-Q SCH ×2 (09:10→22:25)
[2017-02-04] MEDS: LEVEMIR (NF) SUB-Q SCH (09:10)
--- NOTE | 2017-02-04 11:09 | Progress Note ---
Assessment and Plan 51 y/o male found down, concern for sepsis and now encephalopathic requiring mechanical ventilation. No New recs 1. continue supportive care 2. Spoke with Risk and the BIO[employer]YIST has requested that guardianship be persued. Dilemma is, once patient has been awarded guardianship, who will take him. Morally and ethically, given the prognosis provided by neurology, I do not feel placing a tracheostomy is the right thing to do. I will discuss this with the BIOASSAYIST. 3. Added imodium for diarrhea CCT 31 minutes. Subjective Date of service: 02/04/17 Principal diagnosis: Acute respiratory failure,encephalopathy Interval history: No acute events. Per nursing, having diarrhea. Objective Vital Signs - 12hr 02/03/17 02/03/17 02/04/17 23:09 23:28 00:00 Temperature 99.1 F Pulse Rate 71 71 71 Respiratory 19 16 Rate Blood Pressure 139/71 139/71 140/70 O2 Sat by Pulse 100 100 97 Oximetry 02/04/17 02/04/17 02/04/17 01:00 02:00 02:55 Temperature Pulse Rate 73 72 73 Respiratory 15 16 Rate Blood Pressure 144/73 148/76 148/76 O2 Sat by Pulse 98 97 100 Oximetry 02/04/17 02/04/17 02/04/17 03:00 04:00 05:00 Temperature 98.8 F Pulse Rate 74 72 76 Respiratory 19 16 17 Rate Blood Pressure 148/76 146/78 143/76 O2 Sat by Pulse 100 100 98 Oximetry 02/04/17 02/04/17 02/04/17 06:00 07:00 08:00 Temperature 98.4 F Pulse Rate 69 67 78 Respiratory 17 16 15 Rate Blood Pressure 154/77 157/78 130/81 O2 Sat by Pulse 98 100 100 Oximetry 02/04/17 02/04/17 02/04/17 09:00 09:09 10:00 Temperature Pulse Rate 78 79 77 Respiratory 16 14 Rate Blood Pressure 132/79 132/79 120/70 O2 Sat by Pulse 97 94 Oximetry 02/04/17 10:20 Temperature Pulse Rate 74 Respiratory 19 Rate Blood Pressure 120/70 O2 Sat by Pulse 100 Oximetry Constitutional: no acute distress, comatose, other (orally intubated, on vent) Eyes: non-icteric ENT: oropharynx moist Neck: supple, no JVD Effort: normal Ascultation: Bilateral: clear, diminished breath sounds Cardiovascular: regular rate and rhythm Gastrointestinal: normoactive bowel sounds, soft, non-tender, non-distended Integumentary: normal Extremities: no cyanosis, no edema, pink and warm Neurologic: non-focal exam, pupils equal and round, other (no response to pain. ) Psychiatric: other (unable to obtain) CBC and BMP: 02/02/17 11:46 02/02/17 11:46 ABG, PT/INR, D-dimer: ABG POC ABG pH 7.442 (7.35-7.45) 01/31/17 18:55 ABG pH 7.420 pH Units (7.350-7.450) 01/17/17 04:35 POC ABG pCO2 32.8 (35-45) L 01/31/17 18:55 ABG pCO2 34.5 mm Hg 01/17/17 04:35 POC ABG pO2 82 (80-105) 01/31/17 18:55 ABG pO2 160.3 mm Hg (80.0-90.0) H 01/17/17 04:35 POC ABG HCO3 22.4 01/31/17 18:55 POC ABG Total CO2 23 01/31/17 18:55 POC ABG O2 Sat 97 01/31/17 18:55 ABG O2 Saturation 99.0 % (95.0-99.0) 01/17/17 04:35 PT/INR, D-dimer PT 14.1 Sec. (12.2-14.9) 01/17/17 04:10 INR 1.04 (0.87-1.13) 01/17/17 04:10 Abnormal lab findings: Abnormal Labs 01/09/17 01/09/17 01/09/17 12:49 13:13 14:21 WBC RBC Hgb Hct MCV MCH RDW Plt Count Lymph % (Auto) [place] % (Auto) Eos % (Auto) Seg Neutrophils % Seg Neuts % (Manual) Lymphocytes % (Manual) Seg Neutrophils # Seg Neutrophils # Man Lymphocytes # (Manual) POC ABG pH ABG pH POC ABG pCO2 POC ABG pO2 ABG pO2 ABG HCO3 ABG Base Excess ABG Hemoglobin Oxyhemoglobin Sodium Potassium Chloride Carbon Dioxide BUN Creatinine Glucose POC Glucose < 40 L 128 H 65 L Lactic Acid Calcium AST Alkaline Phosphatase Albumin Urine WBC (Auto) 01/09/17 01/09/17 01/09/17 15:09 16:28 17:14 WBC RBC Hgb Hct MCV MCH RDW Plt Count Lymph % (Auto) [place] % (Auto) Eos % (Auto) Seg Neutrophils % Seg Neuts % (Manual) Lymphocytes % (Manual) Seg Neutrophils # Seg Neutrophils # Man Lymphocytes # (Manual) POC ABG pH ABG pH POC ABG pCO2 POC ABG pO2 ABG pO2 ABG HCO3 ABG Base Excess ABG Hemoglobin Oxyhemoglobin Sodium Potassium Chloride Carbon Dioxide BUN Creatinine Glucose POC Glucose 120 H 44 L 112 H Lactic Acid Calcium AST Alkaline Phosphatase Albumin Urine WBC (Auto) 01/10/17 01/10/17 01/10/17 04:30 04:30 05:41 WBC 24.1 H RBC 3.38 L Hgb 8.5 L Hct 26.0 L MCV 77 L MCH 25 L RDW 17.9 H Plt Count 474 H Lymph % (Auto) [place] % (Auto) Eos % (Auto) Seg Neutrophils % Seg Neuts % (Manual) 88.0 H Lymphocytes % (Manual) 4.0 L Seg Neutrophils # Seg Neutrophils # Man 21.2 H Lymphocytes # (Manual) 1.0 L POC ABG pH ABG pH POC ABG pCO2 POC ABG pO2 ABG pO2 ABG HCO3 ABG Base Excess ABG Hemoglobin Oxyhemoglobin Sodium Potassium Chloride Carbon Dioxide 17 L BUN 27 H Creatinine Glucose POC Glucose 68 L Lactic Acid Calcium 7.5 L AST Alkaline Phosphatase Albumin Urine WBC (Auto) 01/10/17 01/10/17 01/10/17 05:45 07:47 10:50 WBC RBC Hgb Hct MCV MCH RDW Plt Count Lymph % (Auto) [place] % (Auto) Eos % (Auto) Seg Neutrophils % Seg Neuts % (Manual) Lymphocytes % (Manual) Seg Neutrophils # Seg Neutrophils # Man Lymphocytes # (Manual) POC ABG pH ABG pH POC ABG pCO2 26.6 L POC ABG pO2 207 H ABG pO2 ABG HCO3 ABG Base Excess ABG Hemoglobin Oxyhemoglobin Sodium Potassium Chloride Carbon Dioxide BUN Creatinine Glucose POC Glucose 148 H 165 H Lactic Acid Calcium AST Alkaline Phosphatase Albumin Urine WBC (Auto) 01/10/17 01/10/17 01/10/17 13:41 20:20 21:39 WBC RBC Hgb Hct MCV MCH RDW Plt Count Lymph % (Auto) [place] % (Auto) Eos % (Auto) Seg Neutrophils % Seg Neuts % (Manual) Lymphocytes % (Manual) Seg Neutrophils # Seg Neutrophils # Man Lymphocytes # (Manual) POC ABG pH ABG pH POC ABG pCO2 POC ABG pO2 ABG pO2 ABG HCO3 ABG Base Excess ABG Hemoglobin Oxyhemoglobin Sodium Potassium Chloride Carbon Dioxide BUN Creatinine Glucose POC Glucose 114 H 150 H 175 H Lactic Acid Calcium AST Alkaline Phosphatase Albumin Urine WBC (Auto) 01/10/17 01/11/17 01/11/17 23:24 00:19 04:06 WBC RBC Hgb Hct MCV MCH RDW Plt Count Lymph % (Auto) [place] % (Auto) Eos % (Auto) Seg Neutrophils % Seg Neuts % (Manual) Lymphocytes % (Manual) Seg Neutrophils # Seg Neutrophils # Man Lymphocytes # (Manual) POC ABG pH 7.463 H ABG pH POC ABG pCO2 26.2 L POC ABG pO2 185 H ABG pO2 ABG HCO3 ABG Base Excess ABG Hemoglobin Oxyhemoglobin Sodium Potassium Chloride Carbon Dioxide BUN Creatinine Glucose POC Glucose 155 H 163 H Lactic Acid Calcium AST Alkaline Phosphatase Albumin Urine WBC (Auto) 01/11/17 01/11/17 01/11/17 05:20 05:20 06:21 WBC 15.2 H RBC 3.40 L Hgb 8.9 L Hct 26.3 L MCV 78 L MCH 26 L RDW 18.6 H Plt Count 462 H Lymph % (Auto) 13.2 L [place] % (Auto) Eos % (Auto) Seg Neutrophils % 80.8 H Seg Neuts % (Manual) Lymphocytes % (Manual) Seg Neutrophils # 12.3 H Seg Neutrophils # Man Lymphocytes # (Manual) POC ABG pH ABG pH POC ABG pCO2 POC ABG pO2 ABG pO2 ABG HCO3 ABG Base Excess ABG Hemoglobin Oxyhemoglobin Sodium Potassium 3.4 L Chloride 111.5 H Carbon Dioxide 17 L BUN Creatinine Glucose 147 H POC Glucose 139 H Lactic Acid Calcium 8.0 L AST Alkaline Phosphatase Albumin Urine WBC (Auto) 01/11/17 01/11/17 01/11/17 07:57 11:46 16:50 WBC RBC Hgb Hct MCV MCH RDW Plt Count Lymph % (Auto) [place] % (Auto) Eos % (Auto) Seg Neutrophils % Seg Neuts % (Manual) Lymphocytes % (Manual) Seg Neutrophils # Seg Neutrophils # Man Lymphocytes # (Manual) POC ABG pH ABG pH POC ABG pCO2 POC ABG pO2 ABG pO2 ABG HCO3 ABG Base Excess ABG Hemoglobin Oxyhemoglobin Sodium Potassium Chloride Carbon Dioxide BUN Creatinine Glucose POC Glucose 188 H 199 H 235 H Lactic Acid Calcium AST Alkaline Phosphatase Albumin Urine WBC (Auto) 01/11/17 01/12/17 01/12/17 23:15 05:02 06:56 WBC RBC Hgb Hct MCV MCH RDW Plt Count Lymph % (Auto) [place] % (Auto) Eos % (Auto) Seg Neutrophils % Seg Neuts % (Manual) Lymphocytes % (Manual) Seg Neutrophils # Seg Neutrophils # Man Lymphocytes # (Manual) POC ABG pH ABG pH POC ABG pCO2 28.0 L POC ABG pO2 178 H ABG pO2 ABG HCO3 ABG Base Excess ABG Hemoglobin Oxyhemoglobin Sodium Potassium Chloride Carbon Dioxide BUN Creatinine Glucose POC Glucose 155 H 119 H Lactic Acid Calcium AST Alkaline Phosphatase Albumin Urine WBC (Auto) 01/12/17 01/13/17 01/13/17 14:50 03:37 03:37 WBC RBC 3.61 L Hgb 9.3 L Hct 28.0 L MCV 78 L MCH 26 L RDW 18.2 H Plt Count Lymph % (Auto) [place] % (Auto) Eos % (Auto) Seg Neutrophils % Seg Neuts % (Manual) Lymphocytes % (Manual) Seg Neutrophils # Seg Neutrophils # Man Lymphocytes # (Manual) POC ABG pH ABG pH POC ABG pCO2 POC ABG pO2 ABG pO2 ABG HCO3 ABG Base Excess ABG Hemoglobin Oxyhemoglobin Sodium Potassium Chloride 112.4 H Carbon Dioxide 19 L BUN Creatinine Glucose 118 H POC Glucose 164 H Lactic Acid Calcium 8.0 L AST Alkaline Phosphatase Albumin Urine WBC (Auto) 01/13/17 01/13/17 01/13/17 04:26 06:15 11:50 WBC RBC Hgb Hct MCV MCH RDW Plt Count Lymph % (Auto) [place] % (Auto) Eos % (Auto) Seg Neutrophils % Seg Neuts % (Manual) Lymphocytes % (Manual) Seg Neutrophils # Seg Neutrophils # Man Lymphocytes # (Manual) POC ABG pH 7.485 H ABG pH POC ABG pCO2 25.4 L POC ABG pO2 73 L ABG pO2 ABG HCO3 ABG Base Excess ABG Hemoglobin Oxyhemoglobin Sodium Potassium Chloride Carbon Dioxide BUN Creatinine Glucose POC Glucose 116 H 171 H Lactic Acid Calcium AST Alkaline Phosphatase Albumin Urine WBC (Auto) 01/13/17 01/14/17 01/14/17 17:31 00:02 04:50 WBC RBC 3.32 L Hgb 8.5 L Hct 26.1 L MCV 79 L MCH 26 L RDW 18.2 H Plt Count Lymph % (Auto) [place] % (Auto) 9.0 H Eos % (Auto) Seg Neutrophils % Seg Neuts % (Manual) Lymphocytes % (Manual) Seg Neutrophils # Seg Neutrophils # Man Lymphocytes # (Manual) POC ABG pH ABG pH POC ABG pCO2 POC ABG pO2 ABG pO2 ABG HCO3 ABG Base Excess ABG Hemoglobin Oxyhemoglobin Sodium Potassium Chloride Carbon Dioxide BUN Creatinine Glucose POC Glucose 203 H 157 H Lactic Acid Calcium AST Alkaline Phosphatase Albumin Urine WBC (Auto) 01/14/17 01/14/17 01/14/17 04:50 05:10 11:27 WBC RBC Hgb Hct MCV MCH RDW Plt Count Lymph % (Auto) [place] % (Auto) Eos % (Auto) Seg Neutrophils % Seg Neuts % (Manual) Lymphocytes % (Manual) Seg Neutrophils # Seg Neutrophils # Man Lymphocytes # (Manual) POC ABG pH ABG pH POC ABG pCO2 POC ABG pO2 ABG pO2 ABG HCO3 ABG Base Excess ABG Hemoglobin Oxyhemoglobin Sodium Potassium Chloride 112.5 H Carbon Dioxide BUN Creatinine Glucose 149 H POC Glucose 176 H 147 H Lactic Acid Calcium 8.1 L AST Alkaline Phosphatase Albumin Urine WBC (Auto) 01/14/17 01/14/17 01/15/17 14:07 16:52 00:04 WBC RBC Hgb Hct MCV MCH RDW Plt Count Lymph % (Auto) [place] % (Auto) Eos % (Auto) Seg Neutrophils % Seg Neuts % (Manual) Lymphocytes % (Manual) Seg Neutrophils # Seg Neutrophils # Man Lymphocytes # (Manual) POC ABG pH ABG pH POC ABG pCO2 POC ABG pO2 ABG pO2 ABG HCO3 ABG Base Excess ABG Hemoglobin Oxyhemoglobin Sodium Potassium Chloride Carbon Dioxide BUN Creatinine Glucose POC Glucose 131 H 193 H Lactic Acid Calcium AST Alkaline Phosphatase Albumin Urine WBC (Auto) 53.0 H 01/15/17 01/15/17 01/15/17 05:26 11:49 17:47 WBC RBC Hgb Hct MCV MCH RDW Plt Count Lymph % (Auto) [place] % (Auto) Eos % (Auto) Seg Neutrophils % Seg Neuts % (Manual) Lymphocytes % (Manual) Seg Neutrophils # Seg Neutrophils # Man Lymphocytes # (Manual) POC ABG pH ABG pH POC ABG pCO2 POC ABG pO2 ABG pO2 ABG HCO3 ABG Base Excess ABG Hemoglobin Oxyhemoglobin Sodium Potassium Chloride Carbon Dioxide BUN Creatinine Glucose POC Glucose 215 H 121 H 211 H Lactic Acid Calcium AST Alkaline Phosphatase Albumin Urine WBC (Auto) 01/15/17 01/16/17 01/16/17 21:33 04:30 05:28 WBC RBC Hgb Hct MCV MCH RDW Plt Count Lymph % (Auto) [place] % (Auto) Eos % (Auto) Seg Neutrophils % Seg Neuts % (Manual) Lymphocytes % (Manual) Seg Neutrophils # Seg Neutrophils # Man Lymphocytes # (Manual) POC ABG pH ABG pH 7.457 H POC ABG pCO2 POC ABG pO2 ABG pO2 55.1 L ABG HCO3 19.4 L ABG Base Excess -4.0 L ABG Hemoglobin 6.8 L Oxyhemoglobin 94.9 L Sodium Potassium Chloride Carbon Dioxide BUN Creatinine Glucose POC Glucose 275 H 271 H Lactic Acid Calcium AST Alkaline Phosphatase Albumin Urine WBC (Auto) 01/16/17 01/16/17 01/17/17 13:45 21:39 04:10 WBC 4.4 L RBC 2.98 L Hgb 7.7 L Hct 23.3 L MCV 78 L MCH 26 L RDW 18.1 H Plt Count Lymph % (Auto) [place] % (Auto) Eos % (Auto) Seg Neutrophils % Seg Neuts % (Manual) Lymphocytes % (Manual) Seg Neutrophils # Seg Neutrophils # Man Lymphocytes # (Manual) POC ABG pH ABG pH POC ABG pCO2 POC ABG pO2 ABG pO2 ABG HCO3 ABG Base Excess ABG Hemoglobin Oxyhemoglobin Sodium Potassium Chloride Carbon Dioxide BUN Creatinine Glucose POC Glucose 236 H 258 H Lactic Acid Calcium AST Alkaline Phosphatase Albumin Urine WBC (Auto) 01/17/17 01/17/17 01/17/17 04:10 04:35 12:23 WBC RBC Hgb Hct MCV MCH RDW Plt Count Lymph % (Auto) [place] % (Auto) Eos % (Auto) Seg Neutrophils % Seg Neuts % (Manual) Lymphocytes % (Manual) Seg Neutrophils # Seg Neutrophils # Man Lymphocytes # (Manual) POC ABG pH ABG pH POC ABG pCO2 POC ABG pO2 ABG pO2 160.3 H ABG HCO3 ABG Base Excess -2.3 L ABG Hemoglobin 7.9 L Oxyhemoglobin Sodium Potassium 3.3 L Chloride 108.7 H Carbon Dioxide 20 L BUN 8 L Creatinine Glucose 202 H POC Glucose 321 H Lactic Acid Calcium 7.6 L AST Alkaline Phosphatase Albumin Urine WBC (Auto) 01/17/17 01/18/17 01/18/17 16:01 05:07 12:09 WBC RBC Hgb Hct MCV MCH RDW Plt Count Lymph % (Auto) [place] % (Auto) Eos % (Auto) Seg Neutrophils % Seg Neuts % (Manual) Lymphocytes % (Manual) Seg Neutrophils # Seg Neutrophils # Man Lymphocytes # (Manual) POC ABG pH ABG pH POC ABG pCO2 POC ABG pO2 ABG pO2 ABG HCO3 ABG Base Excess ABG Hemoglobin Oxyhemoglobin Sodium Potassium Chloride Carbon Dioxide BUN Creatinine Glucose POC Glucose 239 H 155 H 203 H Lactic Acid Calcium AST Alkaline Phosphatase Albumin Urine WBC (Auto) 01/18/17 01/18/17 01/19/17 17:54 23:43 04:28 WBC RBC Hgb Hct MCV MCH RDW Plt Count Lymph % (Auto) [place] % (Auto) Eos % (Auto) Seg Neutrophils % Seg Neuts % (Manual) Lymphocytes % (Manual) Seg Neutrophils # Seg Neutrophils # Man Lymphocytes # (Manual) POC ABG pH ABG pH POC ABG pCO2 POC ABG pO2 ABG pO2 ABG HCO3 ABG Base Excess ABG Hemoglobin Oxyhemoglobin Sodium Potassium Chloride Carbon Dioxide BUN Creatinine Glucose POC Glucose 132 H 125 H 182 H Lactic Acid Calcium AST Alkaline Phosphatase Albumin Urine WBC (Auto) 01/19/17 01/19/17 01/20/17 12:11 17:23 00:12 WBC RBC Hgb Hct MCV MCH RDW Plt Count Lymph % (Auto) [place] % (Auto) Eos % (Auto) Seg Neutrophils % Seg Neuts % (Manual) Lymphocytes % (Manual) Seg Neutrophils # Seg Neutrophils # Man Lymphocytes # (Manual) POC ABG pH ABG pH POC ABG pCO2 POC ABG pO2 ABG pO2 ABG HCO3 ABG Base Excess ABG Hemoglobin Oxyhemoglobin Sodium Potassium Chloride Carbon Dioxide BUN Creatinine Glucose POC Glucose 153 H 66 L 139 H Lactic Acid Calcium AST Alkaline Phosphatase Albumin Urine WBC (Auto) 01/20/17 01/20/17 01/20/17 05:44 11:48 17:42 WBC RBC Hgb Hct MCV MCH RDW Plt Count Lymph % (Auto) [place] % (Auto) Eos % (Auto) Seg Neutrophils % Seg Neuts % (Manual) Lymphocytes % (Manual) Seg Neutrophils # Seg Neutrophils # Man Lymphocytes # (Manual) POC ABG pH ABG pH POC ABG pCO2 POC ABG pO2 ABG pO2 ABG HCO3 ABG Base Excess ABG Hemoglobin Oxyhemoglobin Sodium Potassium Chloride Carbon Dioxide BUN Creatinine Glucose POC Glucose 176 H 218 H 132 H Lactic Acid Calcium AST Alkaline Phosphatase Albumin Urine WBC (Auto) 01/20/17 01/21/17 01/21/17 23:43 05:34 11:17 WBC RBC Hgb Hct MCV MCH RDW Plt Count Lymph % (Auto) [place] % (Auto) Eos % (Auto) Seg Neutrophils % Seg Neuts % (Manual) Lymphocytes % (Manual) Seg Neutrophils # Seg Neutrophils # Man Lymphocytes # (Manual) POC ABG pH ABG pH POC ABG pCO2 POC ABG pO2 ABG pO2 ABG HCO3 ABG Base Excess ABG Hemoglobin Oxyhemoglobin Sodium Potassium Chloride Carbon Dioxide BUN Creatinine Glucose POC Glucose 178 H 106 H 213 H Lactic Acid Calcium AST Alkaline Phosphatase Albumin Urine WBC (Auto) 01/21/17 01/22/17 01/22/17 23:37 04:00 04:00 WBC RBC 3.26 L Hgb 8.3 L Hct 25.5 L MCV 78 L MCH 25 L RDW 17.9 H Plt Count Lymph % (Auto) [place] % (Auto) 7.9 H Eos % (Auto) 6.2 H Seg Neutrophils % Seg Neuts % (Manual) Lymphocytes % (Manual) Seg Neutrophils # Seg Neutrophils # Man Lymphocytes # (Manual) POC ABG pH ABG pH POC ABG pCO2 POC ABG pO2 ABG pO2 ABG HCO3 ABG Base Excess ABG Hemoglobin Oxyhemoglobin Sodium Potassium Chloride 95.5 L Carbon Dioxide 31 H D BUN Creatinine Glucose 134 H POC Glucose 140 H Lactic Acid Calcium AST 44 H Alkaline Phosphatase 379 H Albumin 2.7 L Urine WBC (Auto) 01/22/17 01/22/17 01/22/17 04:58 12:12 18:12 WBC RBC Hgb Hct MCV MCH RDW Plt Count Lymph % (Auto) [place] % (Auto) Eos % (Auto) Seg Neutrophils % Seg Neuts % (Manual) Lymphocytes % (Manual) Seg Neutrophils # Seg Neutrophils # Man Lymphocytes # (Manual) POC ABG pH ABG pH POC ABG pCO2 POC ABG pO2 ABG pO2 ABG HCO3 ABG Base Excess ABG Hemoglobin Oxyhemoglobin Sodium Potassium Chloride Carbon Dioxide BUN Creatinine Glucose POC Glucose 146 H 255 H 182 H Lactic Acid Calcium AST Alkaline Phosphatase Albumin Urine WBC (Auto) 01/22/17 01/23/17 01/23/17 23:39 04:43 12:12 WBC RBC Hgb Hct MCV MCH RDW Plt Count Lymph % (Auto) [place] % (Auto) Eos % (Auto) Seg Neutrophils % Seg Neuts % (Manual) Lymphocytes % (Manual) Seg Neutrophils # Seg Neutrophils # Man Lymphocytes # (Manual) POC ABG pH ABG pH POC ABG pCO2 POC ABG pO2 ABG pO2 ABG HCO3 ABG Base Excess ABG Hemoglobin Oxyhemoglobin Sodium Potassium Chloride Carbon Dioxide BUN Creatinine Glucose POC Glucose 134 H 218 H 128 H Lactic Acid Calcium AST Alkaline Phosphatase Albumin Urine WBC (Auto) 01/23/17 01/24/17 01/24/17 17:36 00:08 05:16 WBC RBC Hgb Hct MCV MCH RDW Plt Count Lymph % (Auto) [place] % (Auto) Eos % (Auto) Seg Neutrophils % Seg Neuts % (Manual) Lymphocytes % (Manual) Seg Neutrophils # Seg Neutrophils # Man Lymphocytes # (Manual) POC ABG pH ABG pH POC ABG pCO2 POC ABG pO2 ABG pO2 ABG HCO3 ABG Base Excess ABG Hemoglobin Oxyhemoglobin Sodium Potassium Chloride Carbon Dioxide BUN Creatinine Glucose POC Glucose 156 H 129 H 169 H Lactic Acid Calcium AST Alkaline Phosphatase Albumin Urine WBC (Auto) 01/24/17 01/24/17 01/24/17 11:40 17:43 23:23 WBC RBC Hgb Hct MCV MCH RDW Plt Count Lymph % (Auto) [place] % (Auto) Eos % (Auto) Seg Neutrophils % Seg Neuts % (Manual) Lymphocytes % (Manual) Seg Neutrophils # Seg Neutrophils # Man Lymphocytes # (Manual) POC ABG pH ABG pH POC ABG pCO2 POC ABG pO2 ABG pO2 ABG HCO3 ABG Base Excess ABG Hemoglobin Oxyhemoglobin Sodium Potassium Chloride Carbon Dioxide BUN Creatinine Glucose POC Glucose 187 H 215 H 222 H Lactic Acid Calcium AST Alkaline Phosphatase Albumin Urine WBC (Auto) 01/25/17 01/25/17 01/25/17 04:56 11:52 17:37 WBC RBC Hgb Hct MCV MCH RDW Plt Count Lymph % (Auto) [place] % (Auto) Eos % (Auto) Seg Neutrophils % Seg Neuts % (Manual) Lymphocytes % (Manual) Seg Neutrophils # Seg Neutrophils # Man Lymphocytes # (Manual) POC ABG pH ABG pH POC ABG pCO2 POC ABG pO2 ABG pO2 ABG HCO3 ABG Base Excess ABG Hemoglobin Oxyhemoglobin Sodium Potassium Chloride Carbon Dioxide BUN Creatinine Glucose POC Glucose 210 H 284 H 218 H Lactic Acid Calcium AST Alkaline Phosphatase Albumin Urine WBC (Auto) 01/26/17 01/26/17 01/26/17 00:02 05:33 12:17 WBC RBC Hgb Hct MCV MCH RDW Plt Count Lymph % (Auto) [place] % (Auto) Eos % (Auto) Seg Neutrophils % Seg Neuts % (Manual) Lymphocytes % (Manual) Seg Neutrophils # Seg Neutrophils # Man Lymphocytes # (Manual) POC ABG pH ABG pH POC ABG pCO2 POC ABG pO2 ABG pO2 ABG HCO3 ABG Base Excess ABG Hemoglobin Oxyhemoglobin Sodium Potassium Chloride Carbon Dioxide BUN Creatinine Glucose POC Glucose 192 H 199 H 227 H Lactic Acid Calcium AST Alkaline Phosphatase Albumin Urine WBC (Auto) 01/26/17 01/26/17 01/27/17 17:50 23:57 05:31 WBC RBC Hgb Hct MCV MCH RDW Plt Count Lymph % (Auto) [place] % (Auto) Eos % (Auto) Seg Neutrophils % Seg Neuts % (Manual) Lymphocytes % (Manual) Seg Neutrophils # Seg Neutrophils # Man Lymphocytes # (Manual) POC ABG pH ABG pH POC ABG pCO2 POC ABG pO2 ABG pO2 ABG HCO3 ABG Base Excess ABG Hemoglobin Oxyhemoglobin Sodium Potassium Chloride Carbon Dioxide BUN Creatinine Glucose POC Glucose 229 H 186 H 285 H Lactic Acid Calcium AST Alkaline Phosphatase Albumin Urine WBC (Auto) 01/27/17 01/27/17 01/27/17 11:42 17:47 23:58 WBC RBC Hgb Hct MCV MCH RDW Plt Count Lymph % (Auto) [place] % (Auto) Eos % (Auto) Seg Neutrophils % Seg Neuts % (Manual) Lymphocytes % (Manual) Seg Neutrophils # Seg Neutrophils # Man Lymphocytes # (Manual) POC ABG pH ABG pH POC ABG pCO2 POC ABG pO2 ABG pO2 ABG HCO3 ABG Base Excess ABG Hemoglobin Oxyhemoglobin Sodium Potassium Chloride Carbon Dioxide BUN Creatinine Glucose POC Glucose 260 H 329 H 225 H Lactic Acid Calcium AST Alkaline Phosphatase Albumin Urine WBC (Auto) 01/27/17 01/27/17 01/28/17 Unknown Unknown 03:44 WBC 12.1 H RBC 3.28 L 3.14 L Hgb 8.5 L 8.2 L Hct 25.5 L 24.1 L MCV 78 L 77 L MCH 26 L 26 L RDW 16.8 H 16.9 H Plt Count 601 H 567 H Lymph % (Auto) [place] % (Auto) Eos % (Auto) Seg Neutrophils % Seg Neuts % (Manual) Lymphocytes % (Manual) Seg Neutrophils # Seg Neutrophils # Man Lymphocytes # (Manual) POC ABG pH ABG pH POC ABG pCO2 POC ABG pO2 ABG pO2 ABG HCO3 ABG Base Excess ABG Hemoglobin Oxyhemoglobin Sodium 128 L Potassium 5.4 H Chloride 87.5 L Carbon Dioxide BUN 44 H Creatinine Glucose 250 H POC Glucose Lactic Acid Calcium AST Alkaline Phosphatase Albumin Urine WBC (Auto) 01/28/17 01/28/17 01/28/17 03:44 11:43 16:47 WBC RBC Hgb Hct MCV MCH RDW Plt Count Lymph % (Auto) [place] % (Auto) Eos % (Auto) Seg Neutrophils % Seg Neuts % (Manual) Lymphocytes % (Manual) Seg Neutrophils # Seg Neutrophils # Man Lymphocytes # (Manual) POC ABG pH ABG pH POC ABG pCO2 POC ABG pO2 ABG pO2 ABG HCO3 ABG Base Excess ABG Hemoglobin Oxyhemoglobin Sodium Potassium Chloride Carbon Dioxide BUN 42 H Creatinine Glucose 128 H POC Glucose 351 H 249 H Lactic Acid Calcium AST Alkaline Phosphatase Albumin Urine WBC (Auto) 01/28/17 01/29/17 01/29/17 17:52 05:25 05:25 WBC 13.6 H RBC 3.25 L Hgb 8.3 L Hct 25.1 L MCV 77 L MCH 26 L RDW 16.8 H Plt Count 514 H Lymph % (Auto) [place] % (Auto) Eos % (Auto) Seg Neutrophils % Seg Neuts % (Manual) Lymphocytes % (Manual) Seg Neutrophils # Seg Neutrophils # Man Lymphocytes # (Manual) POC ABG pH ABG pH POC ABG pCO2 POC ABG pO2 ABG pO2 ABG HCO3 ABG Base Excess ABG Hemoglobin Oxyhemoglobin Sodium Potassium Chloride 97.8 L Carbon Dioxide BUN 34 H Creatinine Glucose 222 H POC Glucose Lactic Acid Calcium AST Alkaline Phosphatase Albumin Urine WBC (Auto) > 182.0 H 01/29/17 01/29/17 01/29/17 09:32 11:56 18:11 WBC RBC Hgb Hct MCV MCH RDW Plt Count Lymph % (Auto) [place] % (Auto) Eos % (Auto) Seg Neutrophils % Seg Neuts % (Manual) Lymphocytes % (Manual) Seg Neutrophils # Seg Neutrophils # Man Lymphocytes # (Manual) POC ABG pH ABG pH POC ABG pCO2 POC ABG pO2 ABG pO2 ABG HCO3 ABG Base Excess ABG Hemoglobin Oxyhemoglobin Sodium Potassium Chloride Carbon Dioxide BUN Creatinine Glucose POC Glucose 261 H 215 H Lactic Acid 2.50 H* Calcium AST Alkaline Phosphatase Albumin Urine WBC (Auto) 01/29/17 01/30/17 01/30/17 23:55 05:31 05:31 WBC 15.2 H RBC 3.09 L Hgb 7.9 L Hct 23.9 L MCV 77 L MCH 26 L RDW 16.9 H Plt Count 569 H Lymph % (Auto) [place] % (Auto) Eos % (Auto) Seg Neutrophils % Seg Neuts % (Manual) Lymphocytes % (Manual) Seg Neutrophils # Seg Neutrophils # Man Lymphocytes # (Manual) POC ABG pH ABG pH POC ABG pCO2 POC ABG pO2 ABG pO2 ABG HCO3 ABG Base Excess ABG Hemoglobin Oxyhemoglobin Sodium Potassium Chloride Carbon Dioxide BUN 24 H Creatinine Glucose 235 H POC Glucose 176 H Lactic Acid Calcium AST Alkaline Phosphatase Albumin Urine WBC (Auto) 01/30/17 01/30/17 01/30/17 05:34 11:38 17:58 WBC RBC Hgb Hct MCV MCH RDW Plt Count Lymph % (Auto) [place] % (Auto) Eos % (Auto) Seg Neutrophils % Seg Neuts % (Manual) Lymphocytes % (Manual) Seg Neutrophils # Seg Neutrophils # Man Lymphocytes # (Manual) POC ABG pH ABG pH POC ABG pCO2 POC ABG pO2 ABG pO2 ABG HCO3 ABG Base Excess ABG Hemoglobin Oxyhemoglobin Sodium Potassium Chloride Carbon Dioxide BUN Creatinine Glucose POC Glucose 243 H 298 H 208 H Lactic Acid Calcium AST Alkaline Phosphatase Albumin Urine WBC (Auto) 01/30/17 01/31/17 01/31/17 23:29 04:39 04:39 WBC 11.4 H RBC 3.22 L Hgb 8.2 L Hct 24.9 L MCV 78 L MCH 25 L RDW 17.2 H Plt Count 576 H Lymph % (Auto) [place] % (Auto) Eos % (Auto) Seg Neutrophils % Seg Neuts % (Manual) Lymphocytes % (Manual) Seg Neutrophils # Seg Neutrophils # Man Lymphocytes # (Manual) POC ABG pH ABG pH POC ABG pCO2 POC ABG pO2 ABG pO2 ABG HCO3 ABG Base Excess ABG Hemoglobin Oxyhemoglobin Sodium Potassium Chloride Carbon Dioxide BUN Creatinine 0.7 L Glucose 223 H POC Glucose 245 H Lactic Acid Calcium AST Alkaline Phosphatase Albumin Urine WBC (Auto) 01/31/17 01/31/17 01/31/17 05:57 12:23 17:41 WBC RBC Hgb Hct MCV MCH RDW Plt Count Lymph % (Auto) [place] % (Auto) Eos % (Auto) Seg Neutrophils % Seg Neuts % (Manual) Lymphocytes % (Manual) Seg Neutrophils # Seg Neutrophils # Man Lymphocytes # (Manual) POC ABG pH ABG pH POC ABG pCO2 POC ABG pO2 ABG pO2 ABG HCO3 ABG Base Excess ABG Hemoglobin Oxyhemoglobin Sodium Potassium Chloride Carbon Dioxide BUN Creatinine Glucose POC Glucose 264 H 252 H 208 H Lactic Acid Calcium AST Alkaline Phosphatase Albumin Urine WBC (Auto) 01/31/17 01/31/17 02/01/17 18:55 22:59 03:38 WBC RBC 2.81 L Hgb 7.4 L Hct 22.1 L MCV 79 L MCH 27 L RDW 17.0 H Plt Count 540 H Lymph % (Auto) [place] % (Auto) Eos % (Auto) Seg Neutrophils % Seg Neuts % (Manual) Lymphocytes % (Manual) Seg Neutrophils # Seg Neutrophils # Man Lymphocytes # (Manual) POC ABG pH ABG pH POC ABG pCO2 32.8 L POC ABG pO2 ABG pO2 ABG HCO3 ABG Base Excess ABG Hemoglobin Oxyhemoglobin Sodium Potassium Chloride Carbon Dioxide BUN Creatinine Glucose POC Glucose 40 L Lactic Acid Calcium AST Alkaline Phosphatase Albumin Urine WBC (Auto) 02/01/17 02/01/17 02/01/17 03:38 05:17 12:19 WBC RBC Hgb Hct MCV MCH RDW Plt Count Lymph % (Auto) [place] % (Auto) Eos % (Auto) Seg Neutrophils % Seg Neuts % (Manual) Lymphocytes % (Manual) Seg Neutrophils # Seg Neutrophils # Man Lymphocytes # (Manual) POC ABG pH ABG pH POC ABG pCO2 POC ABG pO2 ABG pO2 ABG HCO3 ABG Base Excess ABG Hemoglobin Oxyhemoglobin Sodium Potassium Chloride Carbon Dioxide 21 L BUN Creatinine 0.7 L Glucose POC Glucose 140 H 213 H Lactic Acid Calcium AST Alkaline Phosphatase Albumin Urine WBC (Auto) 02/01/17 02/01/17 02/02/17 16:44 23:59 05:14 WBC RBC Hgb Hct MCV MCH RDW Plt Count Lymph % (Auto) [place] % (Auto) Eos % (Auto) Seg Neutrophils % Seg Neuts % (Manual) Lymphocytes % (Manual) Seg Neutrophils # Seg Neutrophils # Man Lymphocytes # (Manual) POC ABG pH ABG pH POC ABG pCO2 POC ABG pO2 ABG pO2 ABG HCO3 ABG Base Excess ABG Hemoglobin Oxyhemoglobin Sodium Potassium Chloride Carbon Dioxide BUN Creatinine Glucose POC Glucose 172 H 181 H 194 H Lactic Acid Calcium AST Alkaline Phosphatase Albumin Urine WBC (Auto) 02/02/17 02/02/17 02/02/17 11:24 11:46 11:46 WBC RBC 2.94 L Hgb 7.5 L Hct 23.0 L MCV 78 L MCH 25 L RDW 16.9 H Plt Count 520 H Lymph % (Auto) [place] % (Auto) Eos % (Auto) Seg Neutrophils % Seg Neuts % (Manual) Lymphocytes % (Manual) Seg Neutrophils # Seg Neutrophils # Man Lymphocytes # (Manual) POC ABG pH ABG pH POC ABG pCO2 POC ABG pO2 ABG pO2 ABG HCO3 ABG Base Excess ABG Hemoglobin Oxyhemoglobin Sodium Potassium Chloride Carbon Dioxide BUN Creatinine 0.6 L Glucose 189 H POC Glucose 209 H Lactic Acid Calcium 8.1 L AST Alkaline Phosphatase Albumin Urine WBC (Auto) 02/02/17 02/02/17 02/03/17 17:47 23:32 05:53 WBC RBC Hgb Hct MCV MCH RDW Plt Count Lymph % (Auto) [place] % (Auto) Eos % (Auto) Seg Neutrophils % Seg Neuts % (Manual) Lymphocytes % (Manual) Seg Neutrophils # Seg Neutrophils # Man Lymphocytes # (Manual) POC ABG pH ABG pH POC ABG pCO2 POC ABG pO2 ABG pO2 ABG HCO3 ABG Base Excess ABG Hemoglobin Oxyhemoglobin Sodium Potassium Chloride Carbon Dioxide BUN Creatinine Glucose POC Glucose 147 H 176 H 224 H Lactic Acid Calcium AST Alkaline Phosphatase Albumin Urine WBC (Auto) 02/03/17 02/03/17 02/03/17 11:19 16:59 23:38 WBC RBC Hgb Hct MCV MCH RDW Plt Count Lymph % (Auto) [place] % (Auto) Eos % (Auto) Seg Neutrophils % Seg Neuts % (Manual) Lymphocytes % (Manual) Seg Neutrophils # Seg Neutrophils # Man Lymphocytes # (Manual) POC ABG pH ABG pH POC ABG pCO2 POC ABG pO2 ABG pO2 ABG HCO3 ABG Base Excess ABG Hemoglobin Oxyhemoglobin Sodium Potassium Chloride Carbon Dioxide BUN Creatinine Glucose POC Glucose 228 H 189 H 191 H Lactic Acid Calcium AST Alkaline Phosphatase Albumin Urine WBC (Auto) 02/04/17 05:45 WBC RBC Hgb Hct MCV MCH RDW Plt Count Lymph % (Auto) [place] % (Auto) Eos % (Auto) Seg Neutrophils % Seg Neuts % (Manual) Lymphocytes % (Manual) Seg Neutrophils # Seg Neutrophils # Man Lymphocytes # (Manual) POC ABG pH ABG pH POC ABG pCO2 POC ABG pO2 ABG pO2 ABG HCO3 ABG Base Excess ABG Hemoglobin Oxyhemoglobin Sodium Potassium Chloride Carbon Dioxide BUN Creatinine Glucose POC Glucose 251 H Lactic Acid Calcium AST Alkaline Phosphatase Albumin Urine WBC (Auto)
[2017-02-04] MEDS: IMODIUM A-D PO PRN (19:03)
[2017-02-05] MEDS: NOVOLOG SUB-Q SCH ×4 (00:23→18:15)
[2017-02-05] MEDS: SYNTHROID PO SCH (06:27)
--- NOTE | 2017-02-05 06:45 | Progress Note ---
Assessment and Plan 51 y/o male found down, concern for sepsis and now encephalopathic requiring mechanical ventilation. No New recs for today. 1. continue supportive care 2. Spoke with Risk and the [employer] has requested that guardianship be persued. Dilemma is, once patient has been awarded guardianship, who will take him. Morally and ethically, given the prognosis provided by neurology, I do not feel placing a tracheostomy is the right thing to do. I will discuss this with the [employer]ER. 3. Added imodium for diarrhea CCT 31 minutes. Subjective Date of service: 02/05/17 Principal diagnosis: Acute respiratory failure,encephalopathy Interval history: No acute events. Remains unresponsive, no sedation and vented. Still no family has been found or has been able to be contacted. Objective Vital Signs - 12hr 02/04/17 02/04/17 02/04/17 19:00 19:06 19:27 Temperature 98.4 F Pulse Rate 67 69 Respiratory 15 Rate Blood Pressure 115/69 115/69 O2 Sat by Pulse 99 99 Oximetry 02/04/17 02/04/17 02/04/17 20:00 21:00 22:00 Temperature Pulse Rate 65 67 68 Respiratory 16 17 17 Rate Blood Pressure 140/74 128/76 140/75 O2 Sat by Pulse 100 98 99 Oximetry 02/04/17 02/04/17 02/04/17 22:24 23:00 23:16 Temperature 98.1 F Pulse Rate 67 68 Respiratory 18 Rate Blood Pressure 140/75 142/79 O2 Sat by Pulse 100 Oximetry 02/04/17 02/04/17 02/05/17 23:19 23:35 00:00 Temperature Pulse Rate 63 64 63 Respiratory 20 17 Rate Blood Pressure 142/79 142/79 137/76 O2 Sat by Pulse 100 100 100 Oximetry 02/05/17 02/05/17 02/05/17 01:00 02:00 03:00 Temperature Pulse Rate 64 65 64 Respiratory 17 18 21 Rate Blood Pressure 133/76 144/77 143/80 O2 Sat by Pulse 100 100 100 Oximetry 02/05/17 02/05/17 02/05/17 03:21 03:40 04:01 Temperature 98.2 F Pulse Rate 63 64 Respiratory 17 Rate Blood Pressure 143/80 167/76 O2 Sat by Pulse 100 96 Oximetry Constitutional: no acute distress, comatose, other (orally intubated, on vent) Eyes: non-icteric ENT: oropharynx moist Neck: supple, no JVD Effort: normal Ascultation: Bilateral: clear, diminished breath sounds Cardiovascular: regular rate and rhythm Gastrointestinal: normoactive bowel sounds, soft, non-tender, non-distended Integumentary: normal Extremities: no cyanosis, no edema, pink and warm Neurologic: non-focal exam, pupils equal and round, other (no response to pain. ) Psychiatric: other (unable to obtain) CBC and BMP: 02/02/17 11:46 02/02/17 11:46 ABG, PT/INR, D-dimer: ABG POC ABG pH 7.442 (7.35-7.45) 01/31/17 18:55 ABG pH 7.420 pH Units (7.350-7.450) 01/17/17 04:35 POC ABG pCO2 32.8 (35-45) L 01/31/17 18:55 ABG pCO2 34.5 mm Hg 01/17/17 04:35 POC ABG pO2 82 (80-105) 01/31/17 18:55 ABG pO2 160.3 mm Hg (80.0-90.0) H 01/17/17 04:35 POC ABG HCO3 22.4 01/31/17 18:55 POC ABG Total CO2 23 01/31/17 18:55 POC ABG O2 Sat 97 01/31/17 18:55 ABG O2 Saturation 99.0 % (95.0-99.0) 01/17/17 04:35 PT/INR, D-dimer PT 14.1 Sec. (12.2-14.9) 01/17/17 04:10 INR 1.04 (0.87-1.13) 01/17/17 04:10 Abnormal lab findings: Abnormal Labs 01/09/17 01/09/17 01/09/17 12:49 13:13 14:21 WBC RBC Hgb Hct MCV MCH RDW Plt Count Lymph % (Auto) [place] % (Auto) Eos % (Auto) Seg Neutrophils % Seg Neuts % (Manual) Lymphocytes % (Manual) Seg Neutrophils # Seg Neutrophils # Man Lymphocytes # (Manual) POC ABG pH ABG pH POC ABG pCO2 POC ABG pO2 ABG pO2 ABG HCO3 ABG Base Excess ABG Hemoglobin Oxyhemoglobin Sodium Potassium Chloride Carbon Dioxide BUN Creatinine Glucose POC Glucose < 40 L 128 H 65 L Lactic Acid Calcium AST Alkaline Phosphatase Albumin Urine WBC (Auto) 01/09/17 01/09/17 01/09/17 15:09 16:28 17:14 WBC RBC Hgb Hct MCV MCH RDW Plt Count Lymph % (Auto) [place] % (Auto) Eos % (Auto) Seg Neutrophils % Seg Neuts % (Manual) Lymphocytes % (Manual) Seg Neutrophils # Seg Neutrophils # Man Lymphocytes # (Manual) POC ABG pH ABG pH POC ABG pCO2 POC ABG pO2 ABG pO2 ABG HCO3 ABG Base Excess ABG Hemoglobin Oxyhemoglobin Sodium Potassium Chloride Carbon Dioxide BUN Creatinine Glucose POC Glucose 120 H 44 L 112 H Lactic Acid Calcium AST Alkaline Phosphatase Albumin Urine WBC (Auto) 01/10/17 01/10/17 01/10/17 04:30 04:30 05:41 WBC 24.1 H RBC 3.38 L Hgb 8.5 L Hct 26.0 L MCV 77 L MCH 25 L RDW 17.9 H Plt Count 474 H Lymph % (Auto) [place] % (Auto) Eos % (Auto) Seg Neutrophils % Seg Neuts % (Manual) 88.0 H Lymphocytes % (Manual) 4.0 L Seg Neutrophils # Seg Neutrophils # Man 21.2 H Lymphocytes # (Manual) 1.0 L POC ABG pH ABG pH POC ABG pCO2 POC ABG pO2 ABG pO2 ABG HCO3 ABG Base Excess ABG Hemoglobin Oxyhemoglobin Sodium Potassium Chloride Carbon Dioxide 17 L BUN 27 H Creatinine Glucose POC Glucose 68 L Lactic Acid Calcium 7.5 L AST Alkaline Phosphatase Albumin Urine WBC (Auto) 01/10/17 01/10/17 01/10/17 05:45 07:47 10:50 WBC RBC Hgb Hct MCV MCH RDW Plt Count Lymph % (Auto) [place] % (Auto) Eos % (Auto) Seg Neutrophils % Seg Neuts % (Manual) Lymphocytes % (Manual) Seg Neutrophils # Seg Neutrophils # Man Lymphocytes # (Manual) POC ABG pH ABG pH POC ABG pCO2 26.6 L POC ABG pO2 207 H ABG pO2 ABG HCO3 ABG Base Excess ABG Hemoglobin Oxyhemoglobin Sodium Potassium Chloride Carbon Dioxide BUN Creatinine Glucose POC Glucose 148 H 165 H Lactic Acid Calcium AST Alkaline Phosphatase Albumin Urine WBC (Auto) 01/10/17 01/10/1717 13:41 20:20 21:39 WBC RBC Hgb Hct MCV MCH RDW Plt Count Lymph % (Auto) [place] % (Auto) Eos % (Auto) Seg Neutrophils % Seg Neuts % (Manual) Lymphocytes % (Manual) Seg Neutrophils # Seg Neutrophils # Man Lymphocytes # (Manual) POC ABG pH ABG pH POC ABG pCO2 POC ABG pO2 ABG pO2 ABG HCO3 ABG Base Excess ABG Hemoglobin Oxyhemoglobin Sodium Potassium Chloride Carbon Dioxide BUN Creatinine Glucose POC Glucose 114 H 150 H 175 H Lactic Acid Calcium AST Alkaline Phosphatase Albumin Urine WBC (Auto) 01/10/17 01/11/17 01/11/17 23:24 00:19 04:06 WBC RBC Hgb Hct MCV MCH RDW Plt Count Lymph % (Auto) [place] % (Auto) Eos % (Auto) Seg Neutrophils % Seg Neuts % (Manual) Lymphocytes % (Manual) Seg Neutrophils # Seg Neutrophils # Man Lymphocytes # (Manual) POC ABG pH 7.463 H ABG pH POC ABG pCO2 26.2 L POC ABG pO2 185 H ABG pO2 ABG HCO3 ABG Base Excess ABG Hemoglobin Oxyhemoglobin Sodium Potassium Chloride Carbon Dioxide BUN Creatinine Glucose POC Glucose 155 H 163 H Lactic Acid Calcium AST Alkaline Phosphatase Albumin Urine WBC (Auto) 01/11/17 01/11/17 01/11/17 05:20 05:20 06:21 WBC 15.2 H RBC 3.40 L Hgb 8.9 L Hct 26.3 L MCV 78 L MCH 26 L RDW 18.6 H Plt Count 462 H Lymph % (Auto) 13.2 L [place] % (Auto) Eos % (Auto) Seg Neutrophils % 80.8 H Seg Neuts % (Manual) Lymphocytes % (Manual) Seg Neutrophils # 12.3 H Seg Neutrophils # Man Lymphocytes # (Manual) POC ABG pH ABG pH POC ABG pCO2 POC ABG pO2 ABG pO2 ABG HCO3 ABG Base Excess ABG Hemoglobin Oxyhemoglobin Sodium Potassium 3.4 L Chloride 111.5 H Carbon Dioxide 17 L BUN Creatinine Glucose 147 H POC Glucose 139 H Lactic Acid Calcium 8.0 L AST Alkaline Phosphatase Albumin Urine WBC (Auto) 01/11/17 01/11/17 01/11/17 07:57 11:46 16:50 WBC RBC Hgb Hct MCV MCH RDW Plt Count Lymph % (Auto) [place] % (Auto) Eos % (Auto) Seg Neutrophils % Seg Neuts % (Manual) Lymphocytes % (Manual) Seg Neutrophils # Seg Neutrophils # Man Lymphocytes # (Manual) POC ABG pH ABG pH POC ABG pCO2 POC ABG pO2 ABG pO2 ABG HCO3 ABG Base Excess ABG Hemoglobin Oxyhemoglobin Sodium Potassium Chloride Carbon Dioxide BUN Creatinine Glucose POC Glucose 188 H 199 H 235 H Lactic Acid Calcium AST Alkaline Phosphatase Albumin Urine WBC (Auto) 01/11/17 01/12/17 01/12/17 23:15 05:02 06:56 WBC RBC Hgb Hct MCV MCH RDW Plt Count Lymph % (Auto) [place] % (Auto) Eos % (Auto) Seg Neutrophils % Seg Neuts % (Manual) Lymphocytes % (Manual) Seg Neutrophils # Seg Neutrophils # Man Lymphocytes # (Manual) POC ABG pH ABG pH POC ABG pCO2 28.0 L POC ABG pO2 178 H ABG pO2 ABG HCO3 ABG Base Excess ABG Hemoglobin Oxyhemoglobin Sodium Potassium Chloride Carbon Dioxide BUN Creatinine Glucose POC Glucose 155 H 119 H Lactic Acid Calcium AST Alkaline Phosphatase Albumin Urine WBC (Auto) 01/12/17 01/13/17 01/13/17 14:50 03:37 03:37 WBC RBC 3.61 L Hgb 9.3 L Hct 28.0 L MCV 78 L MCH 26 L RDW 18.2 H Plt Count Lymph % (Auto) [place] % (Auto) Eos % (Auto) Seg Neutrophils % Seg Neuts % (Manual) Lymphocytes % (Manual) Seg Neutrophils # Seg Neutrophils # Man Lymphocytes # (Manual) POC ABG pH ABG pH POC ABG pCO2 POC ABG pO2 ABG pO2 ABG HCO3 ABG Base Excess ABG Hemoglobin Oxyhemoglobin Sodium Potassium Chloride 112.4 H Carbon Dioxide 19 L BUN Creatinine Glucose 118 H POC Glucose 164 H Lactic Acid Calcium 8.0 L AST Alkaline Phosphatase Albumin Urine WBC (Auto) 01/13/17 01/13/17 01/13/17 04:26 06:15 11:50 WBC RBC Hgb Hct MCV MCH RDW Plt Count Lymph % (Auto) [place] % (Auto) Eos % (Auto) Seg Neutrophils % Seg Neuts % (Manual) Lymphocytes % (Manual) Seg Neutrophils # Seg Neutrophils # Man Lymphocytes # (Manual) POC ABG pH 7.485 H ABG pH POC ABG pCO2 25.4 L POC ABG pO2 73 L ABG pO2 ABG HCO3 ABG Base Excess ABG Hemoglobin Oxyhemoglobin Sodium Potassium Chloride Carbon Dioxide BUN Creatinine Glucose POC Glucose 116 H 171 H Lactic Acid Calcium AST Alkaline Phosphatase Albumin Urine WBC (Auto) 01/13/17 01/14/17 01/14/17 17:31 00:02 04:50 WBC RBC 3.32 L Hgb 8.5 L Hct 26.1 L MCV 79 L MCH 26 L RDW 18.2 H Plt Count Lymph % (Auto) [place] % (Auto) 9.0 H Eos % (Auto) Seg Neutrophils % Seg Neuts % (Manual) Lymphocytes % (Manual) Seg Neutrophils # Seg Neutrophils # Man Lymphocytes # (Manual) POC ABG pH ABG pH POC ABG pCO2 POC ABG pO2 ABG pO2 ABG HCO3 ABG Base Excess ABG Hemoglobin Oxyhemoglobin Sodium Potassium Chloride Carbon Dioxide BUN Creatinine Glucose POC Glucose 203 H 157 H Lactic Acid Calcium AST Alkaline Phosphatase Albumin Urine WBC (Auto) 01/14/17 01/14/17 01/14/17 04:50 05:10 11:27 WBC RBC Hgb Hct MCV MCH RDW Plt Count Lymph % (Auto) [place] % (Auto) Eos % (Auto) Seg Neutrophils % Seg Neuts % (Manual) Lymphocytes % (Manual) Seg Neutrophils # Seg Neutrophils # Man Lymphocytes # (Manual) POC ABG pH ABG pH POC ABG pCO2 POC ABG pO2 ABG pO2 ABG HCO3 ABG Base Excess ABG Hemoglobin Oxyhemoglobin Sodium Potassium Chloride 112.5 H Carbon Dioxide BUN Creatinine Glucose 149 H POC Glucose 176 H 147 H Lactic Acid Calcium 8.1 L AST Alkaline Phosphatase Albumin Urine WBC (Auto) 01/14/17 01/14/17 01/15/17 14:07 16:52 00:04 WBC RBC Hgb Hct MCV MCH RDW Plt Count Lymph % (Auto) [place] % (Auto) Eos % (Auto) Seg Neutrophils % Seg Neuts % (Manual) Lymphocytes % (Manual) Seg Neutrophils # Seg Neutrophils # Man Lymphocytes # (Manual) POC ABG pH ABG pH POC ABG pCO2 POC ABG pO2 ABG pO2 ABG HCO3 ABG Base Excess ABG Hemoglobin Oxyhemoglobin Sodium Potassium Chloride Carbon Dioxide BUN Creatinine Glucose POC Glucose 131 H 193 H Lactic Acid Calcium AST Alkaline Phosphatase Albumin Urine WBC (Auto) 53.0 H 01/15/17 01/15/17 01/15/17 05:26 11:49 17:47 WBC RBC Hgb Hct MCV MCH RDW Plt Count Lymph % (Auto) [place] % (Auto) Eos % (Auto) Seg Neutrophils % Seg Neuts % (Manual) Lymphocytes % (Manual) Seg Neutrophils # Seg Neutrophils # Man Lymphocytes # (Manual) POC ABG pH ABG pH POC ABG pCO2 POC ABG pO2 ABG pO2 ABG HCO3 ABG Base Excess ABG Hemoglobin Oxyhemoglobin Sodium Potassium Chloride Carbon Dioxide BUN Creatinine Glucose POC Glucose 215 H 121 H 211 H Lactic Acid Calcium AST Alkaline Phosphatase Albumin Urine WBC (Auto) 01/15/17 01/16/17 01/16/17 21:33 04:30 05:28 WBC RBC Hgb Hct MCV MCH RDW Plt Count Lymph % (Auto) [place] % (Auto) Eos % (Auto) Seg Neutrophils % Seg Neuts % (Manual) Lymphocytes % (Manual) Seg Neutrophils # Seg Neutrophils # Man Lymphocytes # (Manual) POC ABG pH ABG pH 7.457 H POC ABG pCO2 POC ABG pO2 ABG pO2 55.1 L ABG HCO3 19.4 L ABG Base Excess -4.0 L ABG Hemoglobin 6.8 L Oxyhemoglobin 94.9 L Sodium Potassium Chloride Carbon Dioxide BUN Creatinine Glucose POC Glucose 275 H 271 H Lactic Acid Calcium AST Alkaline Phosphatase Albumin Urine WBC (Auto) 01/16/17 01/16/17 01/17/17 13:45 21:39 04:10 WBC 4.4 L RBC 2.98 L Hgb 7.7 L Hct 23.3 L MCV 78 L MCH 26 L RDW 18.1 H Plt Count Lymph % (Auto) [place] % (Auto) Eos % (Auto) Seg Neutrophils % Seg Neuts % (Manual) Lymphocytes % (Manual) Seg Neutrophils # Seg Neutrophils # Man Lymphocytes # (Manual) POC ABG pH ABG pH POC ABG pCO2 POC ABG pO2 ABG pO2 ABG HCO3 ABG Base Excess ABG Hemoglobin Oxyhemoglobin Sodium Potassium Chloride Carbon Dioxide BUN Creatinine Glucose POC Glucose 236 H 258 H Lactic Acid Calcium AST Alkaline Phosphatase Albumin Urine WBC (Auto) 01/17/17 01/17/17 01/17/17 04:10 04:35 12:23 WBC RBC Hgb Hct MCV MCH RDW Plt Count Lymph % (Auto) [place] % (Auto) Eos % (Auto) Seg Neutrophils % Seg Neuts % (Manual) Lymphocytes % (Manual) Seg Neutrophils # Seg Neutrophils # Man Lymphocytes # (Manual) POC ABG pH ABG pH POC ABG pCO2 POC ABG pO2 ABG pO2 160.3 H ABG HCO3 ABG Base Excess -2.3 L ABG Hemoglobin 7.9 L Oxyhemoglobin Sodium Potassium 3.3 L Chloride 108.7 H Carbon Dioxide 20 L BUN 8 L Creatinine Glucose 202 H POC Glucose 321 H Lactic Acid Calcium 7.6 L AST Alkaline Phosphatase Albumin Urine WBC (Auto) 01/17/17 01/18/17 01/18/17 16:01 05:07 12:09 WBC RBC Hgb Hct MCV MCH RDW Plt Count Lymph % (Auto) [place] % (Auto) Eos % (Auto) Seg Neutrophils % Seg Neuts % (Manual) Lymphocytes % (Manual) Seg Neutrophils # Seg Neutrophils # Man Lymphocytes # (Manual) POC ABG pH ABG pH POC ABG pCO2 POC ABG pO2 ABG pO2 ABG HCO3 ABG Base Excess ABG Hemoglobin Oxyhemoglobin Sodium Potassium Chloride Carbon Dioxide BUN Creatinine Glucose POC Glucose 239 H 155 H 203 H Lactic Acid Calcium AST Alkaline Phosphatase Albumin Urine WBC (Auto) 01/18/17 01/18/17 01/19/17 17:54 23:43 04:28 WBC RBC Hgb Hct MCV MCH RDW Plt Count Lymph % (Auto) [place] % (Auto) Eos % (Auto) Seg Neutrophils % Seg Neuts % (Manual) Lymphocytes % (Manual) Seg Neutrophils # Seg Neutrophils # Man Lymphocytes # (Manual) POC ABG pH ABG pH POC ABG pCO2 POC ABG pO2 ABG pO2 ABG HCO3 ABG Base Excess ABG Hemoglobin Oxyhemoglobin Sodium Potassium Chloride Carbon Dioxide BUN Creatinine Glucose POC Glucose 132 H 125 H 182 H Lactic Acid Calcium AST Alkaline Phosphatase Albumin Urine WBC (Auto) 01/19/17 01/19/17 01/20/17 12:11 17:23 00:12 WBC RBC Hgb Hct MCV MCH RDW Plt Count Lymph % (Auto) [place] % (Auto) Eos % (Auto) Seg Neutrophils % Seg Neuts % (Manual) Lymphocytes % (Manual) Seg Neutrophils # Seg Neutrophils # Man Lymphocytes # (Manual) POC ABG pH ABG pH POC ABG pCO2 POC ABG pO2 ABG pO2 ABG HCO3 ABG Base Excess ABG Hemoglobin Oxyhemoglobin Sodium Potassium Chloride Carbon Dioxide BUN Creatinine Glucose POC Glucose 153 H 66 L 139 H Lactic Acid Calcium AST Alkaline Phosphatase Albumin Urine WBC (Auto) 01/20/17 01/20/17 01/20/17 05:44 11:48 17:42 WBC RBC Hgb Hct MCV MCH RDW Plt Count Lymph % (Auto) [place] % (Auto) Eos % (Auto) Seg Neutrophils % Seg Neuts % (Manual) Lymphocytes % (Manual) Seg Neutrophils # Seg Neutrophils # Man Lymphocytes # (Manual) POC ABG pH ABG pH POC ABG pCO2 POC ABG pO2 ABG pO2 ABG HCO3 ABG Base Excess ABG Hemoglobin Oxyhemoglobin Sodium Potassium Chloride Carbon Dioxide BUN Creatinine Glucose POC Glucose 176 H 218 H 132 H Lactic Acid Calcium AST Alkaline Phosphatase Albumin Urine WBC (Auto) 01/20/17 01/21/17 01/21/17 23:43 05:34 11:17 WBC RBC Hgb Hct MCV MCH RDW Plt Count Lymph % (Auto) [place] % (Auto) Eos % (Auto) Seg Neutrophils % Seg Neuts % (Manual) Lymphocytes % (Manual) Seg Neutrophils # Seg Neutrophils # Man Lymphocytes # (Manual) POC ABG pH ABG pH POC ABG pCO2 POC ABG pO2 ABG pO2 ABG HCO3 ABG Base Excess ABG Hemoglobin Oxyhemoglobin Sodium Potassium Chloride Carbon Dioxide BUN Creatinine Glucose POC Glucose 178 H 106 H 213 H Lactic Acid Calcium AST Alkaline Phosphatase Albumin Urine WBC (Auto) 01/21/17 01/22/17 01/22/17 23:37 04:00 04:00 WBC RBC 3.26 L Hgb 8.3 L Hct 25.5 L MCV 78 L MCH 25 L RDW 17.9 H Plt Count Lymph % (Auto) [place] % (Auto) 7.9 H Eos % (Auto) 6.2 H Seg Neutrophils % Seg Neuts % (Manual) Lymphocytes % (Manual) Seg Neutrophils # Seg Neutrophils # Man Lymphocytes # (Manual) POC ABG pH ABG pH POC ABG pCO2 POC ABG pO2 ABG pO2 ABG HCO3 ABG Base Excess ABG Hemoglobin Oxyhemoglobin Sodium Potassium Chloride 95.5 L Carbon Dioxide 31 H D BUN Creatinine Glucose 134 H POC Glucose 140 H Lactic Acid Calcium AST 44 H Alkaline Phosphatase 379 H Albumin 2.7 L Urine WBC (Auto) 01/22/17 01/22/17 01/22/17 04:58 12:12 18:12 WBC RBC Hgb Hct MCV MCH RDW Plt Count Lymph % (Auto) [place] % (Auto) Eos % (Auto) Seg Neutrophils % Seg Neuts % (Manual) Lymphocytes % (Manual) Seg Neutrophils # Seg Neutrophils # Man Lymphocytes # (Manual) POC ABG pH ABG pH POC ABG pCO2 POC ABG pO2 ABG pO2 ABG HCO3 ABG Base Excess ABG Hemoglobin Oxyhemoglobin Sodium Potassium Chloride Carbon Dioxide BUN Creatinine Glucose POC Glucose 146 H 255 H 182 H Lactic Acid Calcium AST Alkaline Phosphatase Albumin Urine WBC (Auto) 01/22/17 01/23/17 01/23/17 23:39 04:43 12:12 WBC RBC Hgb Hct MCV MCH RDW Plt Count Lymph % (Auto) [place] % (Auto) Eos % (Auto) Seg Neutrophils % Seg Neuts % (Manual) Lymphocytes % (Manual) Seg Neutrophils # Seg Neutrophils # Man Lymphocytes # (Manual) POC ABG pH ABG pH POC ABG pCO2 POC ABG pO2 ABG pO2 ABG HCO3 ABG Base Excess ABG Hemoglobin Oxyhemoglobin Sodium Potassium Chloride Carbon Dioxide BUN Creatinine Glucose POC Glucose 134 H 218 H 128 H Lactic Acid Calcium AST Alkaline Phosphatase Albumin Urine WBC (Auto) 01/23/17 01/24/17 01/24/17 17:36 00:08 05:16 WBC RBC Hgb Hct MCV MCH RDW Plt Count Lymph % (Auto) [place] % (Auto) Eos % (Auto) Seg Neutrophils % Seg Neuts % (Manual) Lymphocytes % (Manual) Seg Neutrophils # Seg Neutrophils # Man Lymphocytes # (Manual) POC ABG pH ABG pH POC ABG pCO2 POC ABG pO2 ABG pO2 ABG HCO3 ABG Base Excess ABG Hemoglobin Oxyhemoglobin Sodium Potassium Chloride Carbon Dioxide BUN Creatinine Glucose POC Glucose 156 H 129 H 169 H Lactic Acid Calcium AST Alkaline Phosphatase Albumin Urine WBC (Auto) 01/24/17 01/24/17 01/24/17 11:40 17:43 23:23 WBC RBC Hgb Hct MCV MCH RDW Plt Count Lymph % (Auto) [place] % (Auto) Eos % (Auto) Seg Neutrophils % Seg Neuts % (Manual) Lymphocytes % (Manual) Seg Neutrophils # Seg Neutrophils # Man Lymphocytes # (Manual) POC ABG pH ABG pH POC ABG pCO2 POC ABG pO2 ABG pO2 ABG HCO3 ABG Base Excess ABG Hemoglobin Oxyhemoglobin Sodium Potassium Chloride Carbon Dioxide BUN Creatinine Glucose POC Glucose 187 H 215 H 222 H Lactic Acid Calcium AST Alkaline Phosphatase Albumin Urine WBC (Auto) 01/25/17 01/25/17 01/25/17 04:56 11:52 17:37 WBC RBC Hgb Hct MCV MCH RDW Plt Count Lymph % (Auto) [place] % (Auto) Eos % (Auto) Seg Neutrophils % Seg Neuts % (Manual) Lymphocytes % (Manual) Seg Neutrophils # Seg Neutrophils # Man Lymphocytes # (Manual) POC ABG pH ABG pH POC ABG pCO2 POC ABG pO2 ABG pO2 ABG HCO3 ABG Base Excess ABG Hemoglobin Oxyhemoglobin Sodium Potassium Chloride Carbon Dioxide BUN Creatinine Glucose POC Glucose 210 H 284 H 218 H Lactic Acid Calcium AST Alkaline Phosphatase Albumin Urine WBC (Auto) 01/26/17 01/26/17 01/26/17 00:02 05:33 12:17 WBC RBC Hgb Hct MCV MCH RDW Plt Count Lymph % (Auto) [place] % (Auto) Eos % (Auto) Seg Neutrophils % Seg Neuts % (Manual) Lymphocytes % (Manual) Seg Neutrophils # Seg Neutrophils # Man Lymphocytes # (Manual) POC ABG pH ABG pH POC ABG pCO2 POC ABG pO2 ABG pO2 ABG HCO3 ABG Base Excess ABG Hemoglobin Oxyhemoglobin Sodium Potassium Chloride Carbon Dioxide BUN Creatinine Glucose POC Glucose 192 H 199 H 227 H Lactic Acid Calcium AST Alkaline Phosphatase Albumin Urine WBC (Auto) 01/26/17 01/26/17 01/27/17 17:50 23:57 05:31 WBC RBC Hgb Hct MCV MCH RDW Plt Count Lymph % (Auto) [place] % (Auto) Eos % (Auto) Seg Neutrophils % Seg Neuts % (Manual) Lymphocytes % (Manual) Seg Neutrophils # Seg Neutrophils # Man Lymphocytes # (Manual) POC ABG pH ABG pH POC ABG pCO2 POC ABG pO2 ABG pO2 ABG HCO3 ABG Base Excess ABG Hemoglobin Oxyhemoglobin Sodium Potassium Chloride Carbon Dioxide BUN Creatinine Glucose POC Glucose 229 H 186 H 285 H Lactic Acid Calcium AST Alkaline Phosphatase Albumin Urine WBC (Auto) 01/27/17 01/27/17 01/27/17 11:42 17:47 23:58 WBC RBC Hgb Hct MCV MCH RDW Plt Count Lymph % (Auto) [place] % (Auto) Eos % (Auto) Seg Neutrophils % Seg Neuts % (Manual) Lymphocytes % (Manual) Seg Neutrophils # Seg Neutrophils # Man Lymphocytes # (Manual) POC ABG pH ABG pH POC ABG pCO2 POC ABG pO2 ABG pO2 ABG HCO3 ABG Base Excess ABG Hemoglobin Oxyhemoglobin Sodium Potassium Chloride Carbon Dioxide BUN Creatinine Glucose POC Glucose 260 H 329 H 225 H Lactic Acid Calcium AST Alkaline Phosphatase Albumin Urine WBC (Auto) 01/27/17 01/27/17 01/28/17 Unknown Unknown 03:44 WBC 12.1 H RBC 3.28 L 3.14 L Hgb 8.5 L 8.2 L Hct 25.5 L 24.1 L MCV 78 L 77 L MCH 26 L 26 L RDW 16.8 H 16.9 H Plt Count 601 H 567 H Lymph % (Auto) [place] % (Auto) Eos % (Auto) Seg Neutrophils % Seg Neuts % (Manual) Lymphocytes % (Manual) Seg Neutrophils # Seg Neutrophils # Man Lymphocytes # (Manual) POC ABG pH ABG pH POC ABG pCO2 POC ABG pO2 ABG pO2 ABG HCO3 ABG Base Excess ABG Hemoglobin Oxyhemoglobin Sodium 128 L Potassium 5.4 H Chloride 87.5 L Carbon Dioxide BUN 44 H Creatinine Glucose 250 H POC Glucose Lactic Acid Calcium AST Alkaline Phosphatase Albumin Urine WBC (Auto) 01/28/17 01/28/17 01/28/17 03:44 11:43 16:47 WBC RBC Hgb Hct MCV MCH RDW Plt Count Lymph % (Auto) [place] % (Auto) Eos % (Auto) Seg Neutrophils % Seg Neuts % (Manual) Lymphocytes % (Manual) Seg Neutrophils # Seg Neutrophils # Man Lymphocytes # (Manual) POC ABG pH ABG pH POC ABG pCO2 POC ABG pO2 ABG pO2 ABG HCO3 ABG Base Excess ABG Hemoglobin Oxyhemoglobin Sodium Potassium Chloride Carbon Dioxide BUN 42 H Creatinine Glucose 128 H POC Glucose 351 H 249 H Lactic Acid Calcium AST Alkaline Phosphatase Albumin Urine WBC (Auto) 01/28/17 01/29/17 01/29/17 17:52 05:25 05:25 WBC 13.6 H RBC 3.25 L Hgb 8.3 L Hct 25.1 L MCV 77 L MCH 26 L RDW 16.8 H Plt Count 514 H Lymph % (Auto) [place] % (Auto) Eos % (Auto) Seg Neutrophils % Seg Neuts % (Manual) Lymphocytes % (Manual) Seg Neutrophils # Seg Neutrophils # Man Lymphocytes # (Manual) POC ABG pH ABG pH POC ABG pCO2 POC ABG pO2 ABG pO2 ABG HCO3 ABG Base Excess ABG Hemoglobin Oxyhemoglobin Sodium Potassium Chloride 97.8 L Carbon Dioxide BUN 34 H Creatinine Glucose 222 H POC Glucose Lactic Acid Calcium AST Alkaline Phosphatase Albumin Urine WBC (Auto) > 182.0 H 01/29/17 01/29/17 01/29/17 09:32 11:56 18:11 WBC RBC Hgb Hct MCV MCH RDW Plt Count Lymph % (Auto) [place] % (Auto) Eos % (Auto) Seg Neutrophils % Seg Neuts % (Manual) Lymphocytes % (Manual) Seg Neutrophils # Seg Neutrophils # Man Lymphocytes # (Manual) POC ABG pH ABG pH POC ABG pCO2 POC ABG pO2 ABG pO2 ABG HCO3 ABG Base Excess ABG Hemoglobin Oxyhemoglobin Sodium Potassium Chloride Carbon Dioxide BUN Creatinine Glucose POC Glucose 261 H 215 H Lactic Acid 2.50 H* Calcium AST Alkaline Phosphatase Albumin Urine WBC (Auto) 01/29/17 01/30/17 01/30/17 23:55 05:31 05:31 WBC 15.2 H RBC 3.09 L Hgb 7.9 L Hct 23.9 L MCV 77 L MCH 26 L RDW 16.9 H Plt Count 569 H Lymph % (Auto) [place] % (Auto) Eos % (Auto) Seg Neutrophils % Seg Neuts % (Manual) Lymphocytes % (Manual) Seg Neutrophils # Seg Neutrophils # Man Lymphocytes # (Manual) POC ABG pH ABG pH POC ABG pCO2 POC ABG pO2 ABG pO2 ABG HCO3 ABG Base Excess ABG Hemoglobin Oxyhemoglobin Sodium Potassium Chloride Carbon Dioxide BUN 24 H Creatinine Glucose 235 H POC Glucose 176 H Lactic Acid Calcium AST Alkaline Phosphatase Albumin Urine WBC (Auto) 01/30/17 01/30/17 01/30/17 05:34 11:38 17:58 WBC RBC Hgb Hct MCV MCH RDW Plt Count Lymph % (Auto) [place] % (Auto) Eos % (Auto) Seg Neutrophils % Seg Neuts % (Manual) Lymphocytes % (Manual) Seg Neutrophils # Seg Neutrophils # Man Lymphocytes # (Manual) POC ABG pH ABG pH POC ABG pCO2 POC ABG pO2 ABG pO2 ABG HCO3 ABG Base Excess ABG Hemoglobin Oxyhemoglobin Sodium Potassium Chloride Carbon Dioxide BUN Creatinine Glucose POC Glucose 243 H 298 H 208 H Lactic Acid Calcium AST Alkaline Phosphatase Albumin Urine WBC (Auto) 01/30/17 01/31/17 01/31/17 23:29 04:39 04:39 WBC 11.4 H RBC 3.22 L Hgb 8.2 L Hct 24.9 L MCV 78 L MCH 25 L RDW 17.2 H Plt Count 576 H Lymph % (Auto) [place] % (Auto) Eos % (Auto) Seg Neutrophils % Seg Neuts % (Manual) Lymphocytes % (Manual) Seg Neutrophils # Seg Neutrophils # Man Lymphocytes # (Manual) POC ABG pH ABG pH POC ABG pCO2 POC ABG pO2 ABG pO2 ABG HCO3 ABG Base Excess ABG Hemoglobin Oxyhemoglobin Sodium Potassium Chloride Carbon Dioxide BUN Creatinine 0.7 L Glucose 223 H POC Glucose 245 H Lactic Acid Calcium AST Alkaline Phosphatase Albumin Urine WBC (Auto) 01/31/17 01/31/17 01/31/17 05:57 12:23 17:41 WBC RBC Hgb Hct MCV MCH RDW Plt Count Lymph % (Auto) [place] % (Auto) Eos % (Auto) Seg Neutrophils % Seg Neuts % (Manual) Lymphocytes % (Manual) Seg Neutrophils # Seg Neutrophils # Man Lymphocytes # (Manual) POC ABG pH ABG pH POC ABG pCO2 POC ABG pO2 ABG pO2 ABG HCO3 ABG Base Excess ABG Hemoglobin Oxyhemoglobin Sodium Potassium Chloride Carbon Dioxide BUN Creatinine Glucose POC Glucose 264 H 252 H 208 H Lactic Acid Calcium AST Alkaline Phosphatase Albumin Urine WBC (Auto) 01/31/17 01/31/17 02/01/17 18:55 22:59 03:38 WBC RBC 2.81 L Hgb 7.4 L Hct 22.1 L MCV 79 L MCH 27 L RDW 17.0 H Plt Count 540 H Lymph % (Auto) [place] % (Auto) Eos % (Auto) Seg Neutrophils % Seg Neuts % (Manual) Lymphocytes % (Manual) Seg Neutrophils # Seg Neutrophils # Man Lymphocytes # (Manual) POC ABG pH ABG pH POC ABG pCO2 32.8 L POC ABG pO2 ABG pO2 ABG HCO3 ABG Base Excess ABG Hemoglobin Oxyhemoglobin Sodium Potassium Chloride Carbon Dioxide BUN Creatinine Glucose POC Glucose 40 L Lactic Acid Calcium AST Alkaline Phosphatase Albumin Urine WBC (Auto) 02/01/17 02/01/17 02/01/17 03:38 05:17 12:19 WBC RBC Hgb Hct MCV MCH RDW Plt Count Lymph % (Auto) [place] % (Auto) Eos % (Auto) Seg Neutrophils % Seg Neuts % (Manual) Lymphocytes % (Manual) Seg Neutrophils # Seg Neutrophils # Man Lymphocytes # (Manual) POC ABG pH ABG pH POC ABG pCO2 POC ABG pO2 ABG pO2 ABG HCO3 ABG Base Excess ABG Hemoglobin Oxyhemoglobin Sodium Potassium Chloride Carbon Dioxide 21 L BUN Creatinine 0.7 L Glucose POC Glucose 140 H 213 H Lactic Acid Calcium AST Alkaline Phosphatase Albumin Urine WBC (Auto) 02/01/17 02/01/17 02/02/17 16:44 23:59 05:14 WBC RBC Hgb Hct MCV MCH RDW Plt Count Lymph % (Auto) [place] % (Auto) Eos % (Auto) Seg Neutrophils % Seg Neuts % (Manual) Lymphocytes % (Manual) Seg Neutrophils # Seg Neutrophils # Man Lymphocytes # (Manual) POC ABG pH ABG pH POC ABG pCO2 POC ABG pO2 ABG pO2 ABG HCO3 ABG Base Excess ABG Hemoglobin Oxyhemoglobin Sodium Potassium Chloride Carbon Dioxide BUN Creatinine Glucose POC Glucose 172 H 181 H 194 H Lactic Acid Calcium AST Alkaline Phosphatase Albumin Urine WBC (Auto) 02/02/17 02/02/17 02/02/17 11:24 11:46 11:46 WBC RBC 2.94 L Hgb 7.5 L Hct 23.0 L MCV 78 L MCH 25 L RDW 16.9 H Plt Count 520 H Lymph % (Auto) [place] % (Auto) Eos % (Auto) Seg Neutrophils % Seg Neuts % (Manual) Lymphocytes % (Manual) Seg Neutrophils # Seg Neutrophils # Man Lymphocytes # (Manual) POC ABG pH ABG pH POC ABG pCO2 POC ABG pO2 ABG pO2 ABG HCO3 ABG Base Excess ABG Hemoglobin Oxyhemoglobin Sodium Potassium Chloride Carbon Dioxide BUN Creatinine 0.6 L Glucose 189 H POC Glucose 209 H Lactic Acid Calcium 8.1 L AST Alkaline Phosphatase Albumin Urine WBC (Auto) 02/02/17 02/02/17 02/03/17 17:47 23:32 05:53 WBC RBC Hgb Hct MCV MCH RDW Plt Count Lymph % (Auto) [place] % (Auto) Eos % (Auto) Seg Neutrophils % Seg Neuts % (Manual) Lymphocytes % (Manual) Seg Neutrophils # Seg Neutrophils # Man Lymphocytes # (Manual) POC ABG pH ABG pH POC ABG pCO2 POC ABG pO2 ABG pO2 ABG HCO3 ABG Base Excess ABG Hemoglobin Oxyhemoglobin Sodium Potassium Chloride Carbon Dioxide BUN Creatinine Glucose POC Glucose 147 H 176 H 224 H Lactic Acid Calcium AST Alkaline Phosphatase Albumin Urine WBC (Auto) 02/03/17 02/03/17 02/03/17 11:19 16:59 23:38 WBC RBC Hgb Hct MCV MCH RDW Plt Count Lymph % (Auto) [place] % (Auto) Eos % (Auto) Seg Neutrophils % Seg Neuts % (Manual) Lymphocytes % (Manual) Seg Neutrophils # Seg Neutrophils # Man Lymphocytes # (Manual) POC ABG pH ABG pH POC ABG pCO2 POC ABG pO2 ABG pO2 ABG HCO3 ABG Base Excess ABG Hemoglobin Oxyhemoglobin Sodium Potassium Chloride Carbon Dioxide BUN Creatinine Glucose POC Glucose 228 H 189 H 191 H Lactic Acid Calcium AST Alkaline Phosphatase Albumin Urine WBC (Auto) 02/04/17 02/04/17 02/04/17 05:45 11:20 17:20 WBC RBC Hgb Hct MCV MCH RDW Plt Count Lymph % (Auto) [place] % (Auto) Eos % (Auto) Seg Neutrophils % Seg Neuts % (Manual) Lymphocytes % (Manual) Seg Neutrophils # Seg Neutrophils # Man Lymphocytes # (Manual) POC ABG pH ABG pH POC ABG pCO2 POC ABG pO2 ABG pO2 ABG HCO3 ABG Base Excess ABG Hemoglobin Oxyhemoglobin Sodium Potassium Chloride Carbon Dioxide BUN Creatinine Glucose POC Glucose 251 H 243 H 163 H Lactic Acid Calcium AST Alkaline Phosphatase Albumin Urine WBC (Auto) 02/05/17 02/05/17 00:17 05:38 WBC RBC Hgb Hct MCV MCH RDW Plt Count Lymph % (Auto) [place] % (Auto) Eos % (Auto) Seg Neutrophils % Seg Neuts % (Manual) Lymphocytes % (Manual) Seg Neutrophils # Seg Neutrophils # Man Lymphocytes # (Manual) POC ABG pH ABG pH POC ABG pCO2 POC ABG pO2 ABG pO2 ABG HCO3 ABG Base Excess ABG Hemoglobin Oxyhemoglobin Sodium Potassium Chloride Carbon Dioxide BUN Creatinine Glucose POC Glucose 200 H 248 H Lactic Acid Calcium AST Alkaline Phosphatase Albumin Urine WBC (Auto)
[2017-02-05] MEDS: IMODIUM A-D PO PRN ×2 (09:16→21:24)
[2017-02-05] MEDS: NORMODYNE PO SCH ×2 (09:16→21:05)
[2017-02-05] MEDS: HEPARIN SUB-Q SCH ×2 (09:16→21:05)
[2017-02-05] MEDS: LEVEMIR (NF) SUB-Q SCH (09:17)
[2017-02-05] MEDS: PEPCID PO SCH ×2 (09:17→21:05)
[2017-02-06] MEDS: NOVOLOG SUB-Q SCH ×4 (01:00→18:49)
[2017-02-06] MEDS: SYNTHROID PO SCH (05:30)
[2017-02-06] MEDS: NORMODYNE PO SCH (09:31)
[2017-02-06] MEDS: HEPARIN SUB-Q SCH ×2 (09:32→22:25)
[2017-02-06] MEDS: PEPCID PO SCH ×2 (09:32→22:25)
--- NOTE | 2017-02-06 09:52 | Progress Note ---
Assessment and Plan 51 y/o male found down, concern for sepsis and now encephalopathic requiring mechanical ventilation. No New recs for today. 1. continue supportive care 2. Spoke with Risk and the [employer] has requested that guardianship be persued. Dilemma is, once patient has been awarded guardianship, who will take him. Morally and ethically, given the prognosis provided by neurology, I do not feel placing a tracheostomy is the right thing to do. I will discuss this with the [employer]. 3. Added imodium for diarrhea, improved. CCT 31 minutes. Subjective Date of service: 02/06/17 Principal diagnosis: Acute respiratory failure,encephalopathy Interval history: No acute events. Remains unresponsive Objective Vital Signs - 12hr 02/05/17 02/05/17 02/05/17 22:00 22:22 23:00 Temperature Pulse Rate 64 64 63 Respiratory 13 14 16 Rate Blood Pressure 114/67 114/67 121/70 O2 Sat by Pulse 99 99 100 Oximetry 02/05/17 02/05/17 02/06/17 23:10 23:16 00:00 Temperature 99.3 F Pulse Rate 63 64 Respiratory 15 Rate Blood Pressure 121/70 125/73 O2 Sat by Pulse 100 100 Oximetry 02/06/17 02/06/17 02/06/17 01:00 02:00 03:00 Temperature Pulse Rate 67 63 64 Respiratory 20 15 13 Rate Blood Pressure 125/73 138/66 146/74 O2 Sat by Pulse 100 100 100 Oximetry 02/06/17 02/06/17 02/06/17 03:33 04:00 04:10 Temperature 98.6 F Pulse Rate 64 62 Respiratory 13 Rate Blood Pressure 139/74 139/74 O2 Sat by Pulse 100 100 Oximetry 02/06/17 02/06/17 02/06/17 05:00 06:00 07:00 Temperature Pulse Rate 67 63 66 Respiratory 15 15 14 Rate Blood Pressure 139/74 159/73 159/73 O2 Sat by Pulse 100 Oximetry 02/06/17 02/06/17 02/06/17 08:00 09:00 09:05 Temperature 98 F Pulse Rate 68 70 71 Respiratory 15 14 18 Rate Blood Pressure 146/72 147/73 147/73 O2 Sat by Pulse 100 100 98 Oximetry 02/06/17 09:31 Temperature Pulse Rate 73 Respiratory Rate Blood Pressure 147/73 O2 Sat by Pulse Oximetry Constitutional: no acute distress, comatose, other (orally intubated, on vent) Eyes: non-icteric ENT: oropharynx moist Neck: supple, no JVD Effort: normal Ascultation: Bilateral: clear, diminished breath sounds Cardiovascular: regular rate and rhythm Gastrointestinal: normoactive bowel sounds, soft, non-tender, non-distended Integumentary: normal Extremities: no cyanosis, no edema, pink and warm Neurologic: non-focal exam, pupils equal and round, other (no response to pain. ) Psychiatric: other (unable to obtain) CBC and BMP: 02/02/17 11:46 02/02/17 11:46 ABG, PT/INR, D-dimer: ABG POC ABG pH 7.442 (7.35-7.45) 01/31/17 18:55 ABG pH 7.420 pH Units (7.350-7.450) 01/17/17 04:35 POC ABG pCO2 32.8 (35-45) L 01/31/17 18:55 ABG pCO2 34.5 mm Hg 01/17/17 04:35 POC ABG pO2 82 (80-105) 01/31/17 18:55 ABG pO2 160.3 mm Hg (80.0-90.0) H 01/17/17 04:35 POC ABG HCO3 22.4 01/31/17 18:55 POC ABG Total CO2 23 01/31/17 18:55 POC ABG O2 Sat 97 01/31/17 18:55 ABG O2 Saturation 99.0 % (95.0-99.0) 01/17/17 04:35 PT/INR, D-dimer PT 14.1 Sec. (12.2-14.9) 01/17/17 04:10 INR 1.04 (0.87-1.13) 01/17/17 04:10 Abnormal lab findings: Abnormal Labs 01/09/17 01/09/17 01/09/17 12:49 13:13 14:21 WBC RBC Hgb Hct MCV MCH RDW Plt Count Lymph % (Auto) [place] % (Auto) Eos % (Auto) Seg Neutrophils % Seg Neuts % (Manual) Lymphocytes % (Manual) Seg Neutrophils # Seg Neutrophils # Man Lymphocytes # (Manual) POC ABG pH ABG pH POC ABG pCO2 POC ABG pO2 ABG pO2 ABG HCO3 ABG Base Excess ABG Hemoglobin Oxyhemoglobin Sodium Potassium Chloride Carbon Dioxide BUN Creatinine Glucose POC Glucose < 40 L 128 H 65 L Lactic Acid Calcium AST Alkaline Phosphatase Albumin Urine WBC (Auto) 01/09/17 01/09/17 01/09/17 15:09 16:28 17:14 WBC RBC Hgb Hct MCV MCH RDW Plt Count Lymph % (Auto) [place] % (Auto) Eos % (Auto) Seg Neutrophils % Seg Neuts % (Manual) Lymphocytes % (Manual) Seg Neutrophils # Seg Neutrophils # Man Lymphocytes # (Manual) POC ABG pH ABG pH POC ABG pCO2 POC ABG pO2 ABG pO2 ABG HCO3 ABG Base Excess ABG Hemoglobin Oxyhemoglobin Sodium Potassium Chloride Carbon Dioxide BUN Creatinine Glucose POC Glucose 120 H 44 L 112 H Lactic Acid Calcium AST Alkaline Phosphatase Albumin Urine WBC (Auto) 01/10/17 01/10/17 01/10/17 04:30 04:30 05:41 WBC 24.1 H RBC 3.38 L Hgb 8.5 L Hct 26.0 L MCV 77 L MCH 25 L RDW 17.9 H Plt Count 474 H Lymph % (Auto) [place] % (Auto) Eos % (Auto) Seg Neutrophils % Seg Neuts % (Manual) 88.0 H Lymphocytes % (Manual) 4.0 L Seg Neutrophils # Seg Neutrophils # Man 21.2 H Lymphocytes # (Manual) 1.0 L POC ABG pH ABG pH POC ABG pCO2 POC ABG pO2 ABG pO2 ABG HCO3 ABG Base Excess ABG Hemoglobin Oxyhemoglobin Sodium Potassium Chloride Carbon Dioxide 17 L BUN 27 H Creatinine Glucose POC Glucose 68 L Lactic Acid Calcium 7.5 L AST Alkaline Phosphatase Albumin Urine WBC (Auto) 01/10/17 01/10/17 01/10/17 05:45 07:47 10:50 WBC RBC Hgb Hct MCV MCH RDW Plt Count Lymph % (Auto) [place] % (Auto) Eos % (Auto) Seg Neutrophils % Seg Neuts % (Manual) Lymphocytes % (Manual) Seg Neutrophils # Seg Neutrophils # Man Lymphocytes # (Manual) POC ABG pH ABG pH POC ABG pCO2 26.6 L POC ABG pO2 207 H ABG pO2 ABG HCO3 ABG Base Excess ABG Hemoglobin Oxyhemoglobin Sodium Potassium Chloride Carbon Dioxide BUN Creatinine Glucose POC Glucose 148 H 165 H Lactic Acid Calcium AST Alkaline Phosphatase Albumin Urine WBC (Auto) 01/10/17 01/10/17 01/10/17 13:41 20:20 21:39 WBC RBC Hgb Hct MCV MCH RDW Plt Count Lymph % (Auto) [place] % (Auto) Eos % (Auto) Seg Neutrophils % Seg Neuts % (Manual) Lymphocytes % (Manual) Seg Neutrophils # Seg Neutrophils # Man Lymphocytes # (Manual) POC ABG pH ABG pH POC ABG pCO2 POC ABG pO2 ABG pO2 ABG HCO3 ABG Base Excess ABG Hemoglobin Oxyhemoglobin Sodium Potassium Chloride Carbon Dioxide BUN Creatinine Glucose POC Glucose 114 H 150 H 175 H Lactic Acid Calcium AST Alkaline Phosphatase Albumin Urine WBC (Auto) 01/10/17 01/11/17 01/11/17 23:24 00:19 04:06 WBC RBC Hgb Hct MCV MCH RDW Plt Count Lymph % (Auto) [place] % (Auto) Eos % (Auto) Seg Neutrophils % Seg Neuts % (Manual) Lymphocytes % (Manual) Seg Neutrophils # Seg Neutrophils # Man Lymphocytes # (Manual) POC ABG pH 7.463 H ABG pH POC ABG pCO2 26.2 L POC ABG pO2 185 H ABG pO2 ABG HCO3 ABG Base Excess ABG Hemoglobin Oxyhemoglobin Sodium Potassium Chloride Carbon Dioxide BUN Creatinine Glucose POC Glucose 155 H 163 H Lactic Acid Calcium AST Alkaline Phosphatase Albumin Urine WBC (Auto) 01/11/17 01/11/17 01/11/17 05:20 05:20 06:21 WBC 15.2 H RBC 3.40 L Hgb 8.9 L Hct 26.3 L MCV 78 L MCH 26 L RDW 18.6 H Plt Count 462 H Lymph % (Auto) 13.2 L [place] % (Auto) Eos % (Auto) Seg Neutrophils % 80.8 H Seg Neuts % (Manual) Lymphocytes % (Manual) Seg Neutrophils # 12.3 H Seg Neutrophils # Man Lymphocytes # (Manual) POC ABG pH ABG pH POC ABG pCO2 POC ABG pO2 ABG pO2 ABG HCO3 ABG Base Excess ABG Hemoglobin Oxyhemoglobin Sodium Potassium 3.4 L Chloride 111.5 H Carbon Dioxide 17 L BUN Creatinine Glucose 147 H POC Glucose 139 H Lactic Acid Calcium 8.0 L AST Alkaline Phosphatase Albumin Urine WBC (Auto) 01/11/17 01/11/17 01/11/17 07:57 11:46 16:50 WBC RBC Hgb Hct MCV MCH RDW Plt Count Lymph % (Auto) [place] % (Auto) Eos % (Auto) Seg Neutrophils % Seg Neuts % (Manual) Lymphocytes % (Manual) Seg Neutrophils # Seg Neutrophils # Man Lymphocytes # (Manual) POC ABG pH ABG pH POC ABG pCO2 POC ABG pO2 ABG pO2 ABG HCO3 ABG Base Excess ABG Hemoglobin Oxyhemoglobin Sodium Potassium Chloride Carbon Dioxide BUN Creatinine Glucose POC Glucose 188 H 199 H 235 H Lactic Acid Calcium AST Alkaline Phosphatase Albumin Urine WBC (Auto) 01/11/17 01/12/17 01/12/17 23:15 05:02 06:56 WBC RBC Hgb Hct MCV MCH RDW Plt Count Lymph % (Auto) [place] % (Auto) Eos % (Auto) Seg Neutrophils % Seg Neuts % (Manual) Lymphocytes % (Manual) Seg Neutrophils # Seg Neutrophils # Man Lymphocytes # (Manual) POC ABG pH ABG pH POC ABG pCO2 28.0 L POC ABG pO2 178 H ABG pO2 ABG HCO3 ABG Base Excess ABG Hemoglobin Oxyhemoglobin Sodium Potassium Chloride Carbon Dioxide BUN Creatinine Glucose POC Glucose 155 H 119 H Lactic Acid Calcium AST Alkaline Phosphatase Albumin Urine WBC (Auto) 01/12/17 01/13/17 01/13/17 14:50 03:37 03:37 WBC RBC 3.61 L Hgb 9.3 L Hct 28.0 L MCV 78 L MCH 26 L RDW 18.2 H Plt Count Lymph % (Auto) [place] % (Auto) Eos % (Auto) Seg Neutrophils % Seg Neuts % (Manual) Lymphocytes % (Manual) Seg Neutrophils # Seg Neutrophils # Man Lymphocytes # (Manual) POC ABG pH ABG pH POC ABG pCO2 POC ABG pO2 ABG pO2 ABG HCO3 ABG Base Excess ABG Hemoglobin Oxyhemoglobin Sodium Potassium Chloride 112.4 H Carbon Dioxide 19 L BUN Creatinine Glucose 118 H POC Glucose 164 H Lactic Acid Calcium 8.0 L AST Alkaline Phosphatase Albumin Urine WBC (Auto) 01/13/17 01/13/17 01/13/17 04:26 06:15 11:50 WBC RBC Hgb Hct MCV MCH RDW Plt Count Lymph % (Auto) [place] % (Auto) Eos % (Auto) Seg Neutrophils % Seg Neuts % (Manual) Lymphocytes % (Manual) Seg Neutrophils # Seg Neutrophils # Man Lymphocytes # (Manual) POC ABG pH 7.485 H ABG pH POC ABG pCO2 25.4 L POC ABG pO2 73 L ABG pO2 ABG HCO3 ABG Base Excess ABG Hemoglobin Oxyhemoglobin Sodium Potassium Chloride Carbon Dioxide BUN Creatinine Glucose POC Glucose 116 H 171 H Lactic Acid Calcium AST Alkaline Phosphatase Albumin Urine WBC (Auto) 01/13/17 01/14/17 01/14/17 17:31 00:02 04:50 WBC RBC 3.32 L Hgb 8.5 L Hct 26.1 L MCV 79 L MCH 26 L RDW 18.2 H Plt Count Lymph % (Auto) [place] % (Auto) 9.0 H Eos % (Auto) Seg Neutrophils % Seg Neuts % (Manual) Lymphocytes % (Manual) Seg Neutrophils # Seg Neutrophils # Man Lymphocytes # (Manual) POC ABG pH ABG pH POC ABG pCO2 POC ABG pO2 ABG pO2 ABG HCO3 ABG Base Excess ABG Hemoglobin Oxyhemoglobin Sodium Potassium Chloride Carbon Dioxide BUN Creatinine Glucose POC Glucose 203 H 157 H Lactic Acid Calcium AST Alkaline Phosphatase Albumin Urine WBC (Auto) 01/14/17 01/14/17 01/14/17 04:50 05:10 11:27 WBC RBC Hgb Hct MCV MCH RDW Plt Count Lymph % (Auto) [place] % (Auto) Eos % (Auto) Seg Neutrophils % Seg Neuts % (Manual) Lymphocytes % (Manual) Seg Neutrophils # Seg Neutrophils # Man Lymphocytes # (Manual) POC ABG pH ABG pH POC ABG pCO2 POC ABG pO2 ABG pO2 ABG HCO3 ABG Base Excess ABG Hemoglobin Oxyhemoglobin Sodium Potassium Chloride 112.5 H Carbon Dioxide BUN Creatinine Glucose 149 H POC Glucose 176 H 147 H Lactic Acid Calcium 8.1 L AST Alkaline Phosphatase Albumin Urine WBC (Auto) 01/14/17 01/14/17 01/15/17 14:07 16:52 00:04 WBC RBC Hgb Hct MCV MCH RDW Plt Count Lymph % (Auto) [place] % (Auto) Eos % (Auto) Seg Neutrophils % Seg Neuts % (Manual) Lymphocytes % (Manual) Seg Neutrophils # Seg Neutrophils # Man Lymphocytes # (Manual) POC ABG pH ABG pH POC ABG pCO2 POC ABG pO2 ABG pO2 ABG HCO3 ABG Base Excess ABG Hemoglobin Oxyhemoglobin Sodium Potassium Chloride Carbon Dioxide BUN Creatinine Glucose POC Glucose 131 H 193 H Lactic Acid Calcium AST Alkaline Phosphatase Albumin Urine WBC (Auto) 53.0 H 01/15/17 01/15/17 01/15/17 05:26 11:49 17:47 WBC RBC Hgb Hct MCV MCH RDW Plt Count Lymph % (Auto) [place] % (Auto) Eos % (Auto) Seg Neutrophils % Seg Neuts % (Manual) Lymphocytes % (Manual) Seg Neutrophils # Seg Neutrophils # Man Lymphocytes # (Manual) POC ABG pH ABG pH POC ABG pCO2 POC ABG pO2 ABG pO2 ABG HCO3 ABG Base Excess ABG Hemoglobin Oxyhemoglobin Sodium Potassium Chloride Carbon Dioxide BUN Creatinine Glucose POC Glucose 215 H 121 H 211 H Lactic Acid Calcium AST Alkaline Phosphatase Albumin Urine WBC (Auto) 01/15/17 01/16/17 01/16/17 21:33 04:30 05:28 WBC RBC Hgb Hct MCV MCH RDW Plt Count Lymph % (Auto) [place] % (Auto) Eos % (Auto) Seg Neutrophils % Seg Neuts % (Manual) Lymphocytes % (Manual) Seg Neutrophils # Seg Neutrophils # Man Lymphocytes # (Manual) POC ABG pH ABG pH 7.457 H POC ABG pCO2 POC ABG pO2 ABG pO2 55.1 L ABG HCO3 19.4 L ABG Base Excess -4.0 L ABG Hemoglobin 6.8 L Oxyhemoglobin 94.9 L Sodium Potassium Chloride Carbon Dioxide BUN Creatinine Glucose POC Glucose 275 H 271 H Lactic Acid Calcium AST Alkaline Phosphatase Albumin Urine WBC (Auto) 01/16/17 01/16/17 01/17/17 13:45 21:39 04:10 WBC 4.4 L RBC 2.98 L Hgb 7.7 L Hct 23.3 L MCV 78 L MCH 26 L RDW 18.1 H Plt Count Lymph % (Auto) [place] % (Auto) Eos % (Auto) Seg Neutrophils % Seg Neuts % (Manual) Lymphocytes % (Manual) Seg Neutrophils # Seg Neutrophils # Man Lymphocytes # (Manual) POC ABG pH ABG pH POC ABG pCO2 POC ABG pO2 ABG pO2 ABG HCO3 ABG Base Excess ABG Hemoglobin Oxyhemoglobin Sodium Potassium Chloride Carbon Dioxide BUN Creatinine Glucose POC Glucose 236 H 258 H Lactic Acid Calcium AST Alkaline Phosphatase Albumin Urine WBC (Auto) 01/17/17 01/17/17 01/17/17 04:10 04:35 12:23 WBC RBC Hgb Hct MCV MCH RDW Plt Count Lymph % (Auto) [place] % (Auto) Eos % (Auto) Seg Neutrophils % Seg Neuts % (Manual) Lymphocytes % (Manual) Seg Neutrophils # Seg Neutrophils # Man Lymphocytes # (Manual) POC ABG pH ABG pH POC ABG pCO2 POC ABG pO2 ABG pO2 160.3 H ABG HCO3 ABG Base Excess -2.3 L ABG Hemoglobin 7.9 L Oxyhemoglobin Sodium Potassium 3.3 L Chloride 108.7 H Carbon Dioxide 20 L BUN 8 L Creatinine Glucose 202 H POC Glucose 321 H Lactic Acid Calcium 7.6 L AST Alkaline Phosphatase Albumin Urine WBC (Auto) 01/17/17 01/18/17 01/18/17 16:01 05:07 12:09 WBC RBC Hgb Hct MCV MCH RDW Plt Count Lymph % (Auto) [place] % (Auto) Eos % (Auto) Seg Neutrophils % Seg Neuts % (Manual) Lymphocytes % (Manual) Seg Neutrophils # Seg Neutrophils # Man Lymphocytes # (Manual) POC ABG pH ABG pH POC ABG pCO2 POC ABG pO2 ABG pO2 ABG HCO3 ABG Base Excess ABG Hemoglobin Oxyhemoglobin Sodium Potassium Chloride Carbon Dioxide BUN Creatinine Glucose POC Glucose 239 H 155 H 203 H Lactic Acid Calcium AST Alkaline Phosphatase Albumin Urine WBC (Auto) 01/18/17 01/18/17 01/19/17 17:54 23:43 04:28 WBC RBC Hgb Hct MCV MCH RDW Plt Count Lymph % (Auto) [place] % (Auto) Eos % (Auto) Seg Neutrophils % Seg Neuts % (Manual) Lymphocytes % (Manual) Seg Neutrophils # Seg Neutrophils # Man Lymphocytes # (Manual) POC ABG pH ABG pH POC ABG pCO2 POC ABG pO2 ABG pO2 ABG HCO3 ABG Base Excess ABG Hemoglobin Oxyhemoglobin Sodium Potassium Chloride Carbon Dioxide BUN Creatinine Glucose POC Glucose 132 H 125 H 182 H Lactic Acid Calcium AST Alkaline Phosphatase Albumin Urine WBC (Auto) 01/19/17 01/19/17 01/20/17 12:11 17:23 00:12 WBC RBC Hgb Hct MCV MCH RDW Plt Count Lymph % (Auto) [place] % (Auto) Eos % (Auto) Seg Neutrophils % Seg Neuts % (Manual) Lymphocytes % (Manual) Seg Neutrophils # Seg Neutrophils # Man Lymphocytes # (Manual) POC ABG pH ABG pH POC ABG pCO2 POC ABG pO2 ABG pO2 ABG HCO3 ABG Base Excess ABG Hemoglobin Oxyhemoglobin Sodium Potassium Chloride Carbon Dioxide BUN Creatinine Glucose POC Glucose 153 H 66 L 139 H Lactic Acid Calcium AST Alkaline Phosphatase Albumin Urine WBC (Auto) 01/20/17 01/20/17 01/20/17 05:44 11:48 17:42 WBC RBC Hgb Hct MCV MCH RDW Plt Count Lymph % (Auto) [place] % (Auto) Eos % (Auto) Seg Neutrophils % Seg Neuts % (Manual) Lymphocytes % (Manual) Seg Neutrophils # Seg Neutrophils # Man Lymphocytes # (Manual) POC ABG pH ABG pH POC ABG pCO2 POC ABG pO2 ABG pO2 ABG HCO3 ABG Base Excess ABG Hemoglobin Oxyhemoglobin Sodium Potassium Chloride Carbon Dioxide BUN Creatinine Glucose POC Glucose 176 H 218 H 132 H Lactic Acid Calcium AST Alkaline Phosphatase Albumin Urine WBC (Auto) 01/20/17 01/21/17 01/21/17 23:43 05:34 11:17 WBC RBC Hgb Hct MCV MCH RDW Plt Count Lymph % (Auto) [place] % (Auto) Eos % (Auto) Seg Neutrophils % Seg Neuts % (Manual) Lymphocytes % (Manual) Seg Neutrophils # Seg Neutrophils # Man Lymphocytes # (Manual) POC ABG pH ABG pH POC ABG pCO2 POC ABG pO2 ABG pO2 ABG HCO3 ABG Base Excess ABG Hemoglobin Oxyhemoglobin Sodium Potassium Chloride Carbon Dioxide BUN Creatinine Glucose POC Glucose 178 H 106 H 213 H Lactic Acid Calcium AST Alkaline Phosphatase Albumin Urine WBC (Auto) 01/21/17 01/22/17 01/22/17 23:37 04:00 04:00 WBC RBC 3.26 L Hgb 8.3 L Hct 25.5 L MCV 78 L MCH 25 L RDW 17.9 H Plt Count Lymph % (Auto) [place] % (Auto) 7.9 H Eos % (Auto) 6.2 H Seg Neutrophils % Seg Neuts % (Manual) Lymphocytes % (Manual) Seg Neutrophils # Seg Neutrophils # Man Lymphocytes # (Manual) POC ABG pH ABG pH POC ABG pCO2 POC ABG pO2 ABG pO2 ABG HCO3 ABG Base Excess ABG Hemoglobin Oxyhemoglobin Sodium Potassium Chloride 95.5 L Carbon Dioxide 31 H D BUN Creatinine Glucose 134 H POC Glucose 140 H Lactic Acid Calcium AST 44 H Alkaline Phosphatase 379 H Albumin 2.7 L Urine WBC (Auto) 01/22/17 01/22/17 01/22/17 04:58 12:12 18:12 WBC RBC Hgb Hct MCV MCH RDW Plt Count Lymph % (Auto) [place] % (Auto) Eos % (Auto) Seg Neutrophils % Seg Neuts % (Manual) Lymphocytes % (Manual) Seg Neutrophils # Seg Neutrophils # Man Lymphocytes # (Manual) POC ABG pH ABG pH POC ABG pCO2 POC ABG pO2 ABG pO2 ABG HCO3 ABG Base Excess ABG Hemoglobin Oxyhemoglobin Sodium Potassium Chloride Carbon Dioxide BUN Creatinine Glucose POC Glucose 146 H 255 H 182 H Lactic Acid Calcium AST Alkaline Phosphatase Albumin Urine WBC (Auto) 01/22/17 01/23/17 01/23/17 23:39 04:43 12:12 WBC RBC Hgb Hct MCV MCH RDW Plt Count Lymph % (Auto) [place] % (Auto) Eos % (Auto) Seg Neutrophils % Seg Neuts % (Manual) Lymphocytes % (Manual) Seg Neutrophils # Seg Neutrophils # Man Lymphocytes # (Manual) POC ABG pH ABG pH POC ABG pCO2 POC ABG pO2 ABG pO2 ABG HCO3 ABG Base Excess ABG Hemoglobin Oxyhemoglobin Sodium Potassium Chloride Carbon Dioxide BUN Creatinine Glucose POC Glucose 134 H 218 H 128 H Lactic Acid Calcium AST Alkaline Phosphatase Albumin Urine WBC (Auto) 01/23/17 01/24/17 01/24/17 17:36 00:08 05:16 WBC RBC Hgb Hct MCV MCH RDW Plt Count Lymph % (Auto) [place] % (Auto) Eos % (Auto) Seg Neutrophils % Seg Neuts % (Manual) Lymphocytes % (Manual) Seg Neutrophils # Seg Neutrophils # Man Lymphocytes # (Manual) POC ABG pH ABG pH POC ABG pCO2 POC ABG pO2 ABG pO2 ABG HCO3 ABG Base Excess ABG Hemoglobin Oxyhemoglobin Sodium Potassium Chloride Carbon Dioxide BUN Creatinine Glucose POC Glucose 156 H 129 H 169 H Lactic Acid Calcium AST Alkaline Phosphatase Albumin Urine WBC (Auto) 01/24/17 01/24/17 01/24/17 11:40 17:43 23:23 WBC RBC Hgb Hct MCV MCH RDW Plt Count Lymph % (Auto) [place] % (Auto) Eos % (Auto) Seg Neutrophils % Seg Neuts % (Manual) Lymphocytes % (Manual) Seg Neutrophils # Seg Neutrophils # Man Lymphocytes # (Manual) POC ABG pH ABG pH POC ABG pCO2 POC ABG pO2 ABG pO2 ABG HCO3 ABG Base Excess ABG Hemoglobin Oxyhemoglobin Sodium Potassium Chloride Carbon Dioxide BUN Creatinine Glucose POC Glucose 187 H 215 H 222 H Lactic Acid Calcium AST Alkaline Phosphatase Albumin Urine WBC (Auto) 01/25/17 01/25/17 01/25/17 04:56 11:52 17:37 WBC RBC Hgb Hct MCV MCH RDW Plt Count Lymph % (Auto) [place] % (Auto) Eos % (Auto) Seg Neutrophils % Seg Neuts % (Manual) Lymphocytes % (Manual) Seg Neutrophils # Seg Neutrophils # Man Lymphocytes # (Manual) POC ABG pH ABG pH POC ABG pCO2 POC ABG pO2 ABG pO2 ABG HCO3 ABG Base Excess ABG Hemoglobin Oxyhemoglobin Sodium Potassium Chloride Carbon Dioxide BUN Creatinine Glucose POC Glucose 210 H 284 H 218 H Lactic Acid Calcium AST Alkaline Phosphatase Albumin Urine WBC (Auto) 01/26/17 01/26/17 01/26/17 00:02 05:33 12:17 WBC RBC Hgb Hct MCV MCH RDW Plt Count Lymph % (Auto) [place] % (Auto) Eos % (Auto) Seg Neutrophils % Seg Neuts % (Manual) Lymphocytes % (Manual) Seg Neutrophils # Seg Neutrophils # Man Lymphocytes # (Manual) POC ABG pH ABG pH POC ABG pCO2 POC ABG pO2 ABG pO2 ABG HCO3 ABG Base Excess ABG Hemoglobin Oxyhemoglobin Sodium Potassium Chloride Carbon Dioxide BUN Creatinine Glucose POC Glucose 192 H 199 H 227 H Lactic Acid Calcium AST Alkaline Phosphatase Albumin Urine WBC (Auto) 01/26/17 01/26/17 01/27/17 17:50 23:57 05:31 WBC RBC Hgb Hct MCV MCH RDW Plt Count Lymph % (Auto) [place] % (Auto) Eos % (Auto) Seg Neutrophils % Seg Neuts % (Manual) Lymphocytes % (Manual) Seg Neutrophils # Seg Neutrophils # Man Lymphocytes # (Manual) POC ABG pH ABG pH POC ABG pCO2 POC ABG pO2 ABG pO2 ABG HCO3 ABG Base Excess ABG Hemoglobin Oxyhemoglobin Sodium Potassium Chloride Carbon Dioxide BUN Creatinine Glucose POC Glucose 229 H 186 H 285 H Lactic Acid Calcium AST Alkaline Phosphatase Albumin Urine WBC (Auto) 01/27/17 01/27/17 01/27/17 11:42 17:47 23:58 WBC RBC Hgb Hct MCV MCH RDW Plt Count Lymph % (Auto) [place] % (Auto) Eos % (Auto) Seg Neutrophils % Seg Neuts % (Manual) Lymphocytes % (Manual) Seg Neutrophils # Seg Neutrophils # Man Lymphocytes # (Manual) POC ABG pH ABG pH POC ABG pCO2 POC ABG pO2 ABG pO2 ABG HCO3 ABG Base Excess ABG Hemoglobin Oxyhemoglobin Sodium Potassium Chloride Carbon Dioxide BUN Creatinine Glucose POC Glucose 260 H 329 H 225 H Lactic Acid Calcium AST Alkaline Phosphatase Albumin Urine WBC (Auto) 01/27/17 01/27/17 01/28/17 Unknown Unknown 03:44 WBC 12.1 H RBC 3.28 L 3.14 L Hgb 8.5 L 8.2 L Hct 25.5 L 24.1 L MCV 78 L 77 L MCH 26 L 26 L RDW 16.8 H 16.9 H Plt Count 601 H 567 H Lymph % (Auto) [place] % (Auto) Eos % (Auto) Seg Neutrophils % Seg Neuts % (Manual) Lymphocytes % (Manual) Seg Neutrophils # Seg Neutrophils # Man Lymphocytes # (Manual) POC ABG pH ABG pH POC ABG pCO2 POC ABG pO2 ABG pO2 ABG HCO3 ABG Base Excess ABG Hemoglobin Oxyhemoglobin Sodium 128 L Potassium 5.4 H Chloride 87.5 L Carbon Dioxide BUN 44 H Creatinine Glucose 250 H POC Glucose Lactic Acid Calcium AST Alkaline Phosphatase Albumin Urine WBC (Auto) 01/28/17 01/28/17 01/28/17 03:44 11:43 16:47 WBC RBC Hgb Hct MCV MCH RDW Plt Count Lymph % (Auto) [place] % (Auto) Eos % (Auto) Seg Neutrophils % Seg Neuts % (Manual) Lymphocytes % (Manual) Seg Neutrophils # Seg Neutrophils # Man Lymphocytes # (Manual) POC ABG pH ABG pH POC ABG pCO2 POC ABG pO2 ABG pO2 ABG HCO3 ABG Base Excess ABG Hemoglobin Oxyhemoglobin Sodium Potassium Chloride Carbon Dioxide BUN 42 H Creatinine Glucose 128 H POC Glucose 351 H 249 H Lactic Acid Calcium AST Alkaline Phosphatase Albumin Urine WBC (Auto) 01/28/17 01/29/17 01/29/17 17:52 05:25 05:25 WBC 13.6 H RBC 3.25 L Hgb 8.3 L Hct 25.1 L MCV 77 L MCH 26 L RDW 16.8 H Plt Count 514 H Lymph % (Auto) [place] % (Auto) Eos % (Auto) Seg Neutrophils % Seg Neuts % (Manual) Lymphocytes % (Manual) Seg Neutrophils # Seg Neutrophils # Man Lymphocytes # (Manual) POC ABG pH ABG pH POC ABG pCO2 POC ABG pO2 ABG pO2 ABG HCO3 ABG Base Excess ABG Hemoglobin Oxyhemoglobin Sodium Potassium Chloride 97.8 L Carbon Dioxide BUN 34 H Creatinine Glucose 222 H POC Glucose Lactic Acid Calcium AST Alkaline Phosphatase Albumin Urine WBC (Auto) > 182.0 H 01/29/17 01/29/17 01/29/17 09:32 11:56 18:11 WBC RBC Hgb Hct MCV MCH RDW Plt Count Lymph % (Auto) [place] % (Auto) Eos % (Auto) Seg Neutrophils % Seg Neuts % (Manual) Lymphocytes % (Manual) Seg Neutrophils # Seg Neutrophils # Man Lymphocytes # (Manual) POC ABG pH ABG pH POC ABG pCO2 POC ABG pO2 ABG pO2 ABG HCO3 ABG Base Excess ABG Hemoglobin Oxyhemoglobin Sodium Potassium Chloride Carbon Dioxide BUN Creatinine Glucose POC Glucose 261 H 215 H Lactic Acid 2.50 H* Calcium AST Alkaline Phosphatase Albumin Urine WBC (Auto) 01/29/17 01/30/17 01/30/17 23:55 05:31 05:31 WBC 15.2 H RBC 3.09 L Hgb 7.9 L Hct 23.9 L MCV 77 L MCH 26 L RDW 16.9 H Plt Count 569 H Lymph % (Auto) [place] % (Auto) Eos % (Auto) Seg Neutrophils % Seg Neuts % (Manual) Lymphocytes % (Manual) Seg Neutrophils # Seg Neutrophils # Man Lymphocytes # (Manual) POC ABG pH ABG pH POC ABG pCO2 POC ABG pO2 ABG pO2 ABG HCO3 ABG Base Excess ABG Hemoglobin Oxyhemoglobin Sodium Potassium Chloride Carbon Dioxide BUN 24 H Creatinine Glucose 235 H POC Glucose 176 H Lactic Acid Calcium AST Alkaline Phosphatase Albumin Urine WBC (Auto) 01/30/17 01/30/17 01/30/17 05:34 11:38 17:58 WBC RBC Hgb Hct MCV MCH RDW Plt Count Lymph % (Auto) [place] % (Auto) Eos % (Auto) Seg Neutrophils % Seg Neuts % (Manual) Lymphocytes % (Manual) Seg Neutrophils # Seg Neutrophils # Man Lymphocytes # (Manual) POC ABG pH ABG pH POC ABG pCO2 POC ABG pO2 ABG pO2 ABG HCO3 ABG Base Excess ABG Hemoglobin Oxyhemoglobin Sodium Potassium Chloride Carbon Dioxide BUN Creatinine Glucose POC Glucose 243 H 298 H 208 H Lactic Acid Calcium AST Alkaline Phosphatase Albumin Urine WBC (Auto) 01/30/17 01/31/1717 23:29 04:39 04:39 WBC 11.4 H RBC 3.22 L Hgb 8.2 L Hct 24.9 L MCV 78 L MCH 25 L RDW 17.2 H Plt Count 576 H Lymph % (Auto) [place] % (Auto) Eos % (Auto) Seg Neutrophils % Seg Neuts % (Manual) Lymphocytes % (Manual) Seg Neutrophils # Seg Neutrophils # Man Lymphocytes # (Manual) POC ABG pH ABG pH POC ABG pCO2 POC ABG pO2 ABG pO2 ABG HCO3 ABG Base Excess ABG Hemoglobin Oxyhemoglobin Sodium Potassium Chloride Carbon Dioxide BUN Creatinine 0.7 L Glucose 223 H POC Glucose 245 H Lactic Acid Calcium AST Alkaline Phosphatase Albumin Urine WBC (Auto) 01/31/17 01/31/17 01/31/17 05:57 12:23 17:41 WBC RBC Hgb Hct MCV MCH RDW Plt Count Lymph % (Auto) [place] % (Auto) Eos % (Auto) Seg Neutrophils % Seg Neuts % (Manual) Lymphocytes % (Manual) Seg Neutrophils # Seg Neutrophils # Man Lymphocytes # (Manual) POC ABG pH ABG pH POC ABG pCO2 POC ABG pO2 ABG pO2 ABG HCO3 ABG Base Excess ABG Hemoglobin Oxyhemoglobin Sodium Potassium Chloride Carbon Dioxide BUN Creatinine Glucose POC Glucose 264 H 252 H 208 H Lactic Acid Calcium AST Alkaline Phosphatase Albumin Urine WBC (Auto) 01/31/17 01/31/17 02/01/17 18:55 22:59 03:38 WBC RBC 2.81 L Hgb 7.4 L Hct 22.1 L MCV 79 L MCH 27 L RDW 17.0 H Plt Count 540 H Lymph % (Auto) [place] % (Auto) Eos % (Auto) Seg Neutrophils % Seg Neuts % (Manual) Lymphocytes % (Manual) Seg Neutrophils # Seg Neutrophils # Man Lymphocytes # (Manual) POC ABG pH ABG pH POC ABG pCO2 32.8 L POC ABG pO2 ABG pO2 ABG HCO3 ABG Base Excess ABG Hemoglobin Oxyhemoglobin Sodium Potassium Chloride Carbon Dioxide BUN Creatinine Glucose POC Glucose 40 L Lactic Acid Calcium AST Alkaline Phosphatase Albumin Urine WBC (Auto) 02/01/17 02/01/17 02/01/17 03:38 05:17 12:19 WBC RBC Hgb Hct MCV MCH RDW Plt Count Lymph % (Auto) [place] % (Auto) Eos % (Auto) Seg Neutrophils % Seg Neuts % (Manual) Lymphocytes % (Manual) Seg Neutrophils # Seg Neutrophils # Man Lymphocytes # (Manual) POC ABG pH ABG pH POC ABG pCO2 POC ABG pO2 ABG pO2 ABG HCO3 ABG Base Excess ABG Hemoglobin Oxyhemoglobin Sodium Potassium Chloride Carbon Dioxide 21 L BUN Creatinine 0.7 L Glucose POC Glucose 140 H 213 H Lactic Acid Calcium AST Alkaline Phosphatase Albumin Urine WBC (Auto) 02/01/17 02/01/17 02/02/17 16:44 23:59 05:14 WBC RBC Hgb Hct MCV MCH RDW Plt Count Lymph % (Auto) [place] % (Auto) Eos % (Auto) Seg Neutrophils % Seg Neuts % (Manual) Lymphocytes % (Manual) Seg Neutrophils # Seg Neutrophils # Man Lymphocytes # (Manual) POC ABG pH ABG pH POC ABG pCO2 POC ABG pO2 ABG pO2 ABG HCO3 ABG Base Excess ABG Hemoglobin Oxyhemoglobin Sodium Potassium Chloride Carbon Dioxide BUN Creatinine Glucose POC Glucose 172 H 181 H 194 H Lactic Acid Calcium AST Alkaline Phosphatase Albumin Urine WBC (Auto) 02/02/17 02/02/17 02/02/17 11:24 11:46 11:46 WBC RBC 2.94 L Hgb 7.5 L Hct 23.0 L MCV 78 L MCH 25 L RDW 16.9 H Plt Count 520 H Lymph % (Auto) [place] % (Auto) Eos % (Auto) Seg Neutrophils % Seg Neuts % (Manual) Lymphocytes % (Manual) Seg Neutrophils # Seg Neutrophils # Man Lymphocytes # (Manual) POC ABG pH ABG pH POC ABG pCO2 POC ABG pO2 ABG pO2 ABG HCO3 ABG Base Excess ABG Hemoglobin Oxyhemoglobin Sodium Potassium Chloride Carbon Dioxide BUN Creatinine 0.6 L Glucose 189 H POC Glucose 209 H Lactic Acid Calcium 8.1 L AST Alkaline Phosphatase Albumin Urine WBC (Auto) 02/02/17 02/02/17 02/03/17 17:47 23:32 05:53 WBC RBC Hgb Hct MCV MCH RDW Plt Count Lymph % (Auto) [place] % (Auto) Eos % (Auto) Seg Neutrophils % Seg Neuts % (Manual) Lymphocytes % (Manual) Seg Neutrophils # Seg Neutrophils # Man Lymphocytes # (Manual) POC ABG pH ABG pH POC ABG pCO2 POC ABG pO2 ABG pO2 ABG HCO3 ABG Base Excess ABG Hemoglobin Oxyhemoglobin Sodium Potassium Chloride Carbon Dioxide BUN Creatinine Glucose POC Glucose 147 H 176 H 224 H Lactic Acid Calcium AST Alkaline Phosphatase Albumin Urine WBC (Auto) 02/03/17 02/03/17 02/03/17 11:19 16:59 23:38 WBC RBC Hgb Hct MCV MCH RDW Plt Count Lymph % (Auto) [place] % (Auto) Eos % (Auto) Seg Neutrophils % Seg Neuts % (Manual) Lymphocytes % (Manual) Seg Neutrophils # Seg Neutrophils # Man Lymphocytes # (Manual) POC ABG pH ABG pH POC ABG pCO2 POC ABG pO2 ABG pO2 ABG HCO3 ABG Base Excess ABG Hemoglobin Oxyhemoglobin Sodium Potassium Chloride Carbon Dioxide BUN Creatinine Glucose POC Glucose 228 H 189 H 191 H Lactic Acid Calcium AST Alkaline Phosphatase Albumin Urine WBC (Auto) 02/04/17 02/04/17 02/04/17 05:45 11:20 17:20 WBC RBC Hgb Hct MCV MCH RDW Plt Count Lymph % (Auto) [place] % (Auto) Eos % (Auto) Seg Neutrophils % Seg Neuts % (Manual) Lymphocytes % (Manual) Seg Neutrophils # Seg Neutrophils # Man Lymphocytes # (Manual) POC ABG pH ABG pH POC ABG pCO2 POC ABG pO2 ABG pO2 ABG HCO3 ABG Base Excess ABG Hemoglobin Oxyhemoglobin Sodium Potassium Chloride Carbon Dioxide BUN Creatinine Glucose POC Glucose 251 H 243 H 163 H Lactic Acid Calcium AST Alkaline Phosphatase Albumin Urine WBC (Auto) 02/05/17 02/05/17 02/05/17 00:17 05:38 12:38 WBC RBC Hgb Hct MCV MCH RDW Plt Count Lymph % (Auto) [place] % (Auto) Eos % (Auto) Seg Neutrophils % Seg Neuts % (Manual) Lymphocytes % (Manual) Seg Neutrophils # Seg Neutrophils # Man Lymphocytes # (Manual) POC ABG pH ABG pH POC ABG pCO2 POC ABG pO2 ABG pO2 ABG HCO3 ABG Base Excess ABG Hemoglobin Oxyhemoglobin Sodium Potassium Chloride Carbon Dioxide BUN Creatinine Glucose POC Glucose 200 H 248 H 241 H Lactic Acid Calcium AST Alkaline Phosphatase Albumin Urine WBC (Auto) 02/05/17 02/05/17 02/06/17 16:29 23:56 05:30 WBC RBC Hgb Hct MCV MCH RDW Plt Count Lymph % (Auto) [place] % (Auto) Eos % (Auto) Seg Neutrophils % Seg Neuts % (Manual) Lymphocytes % (Manual) Seg Neutrophils # Seg Neutrophils # Man Lymphocytes # (Manual) POC ABG pH ABG pH POC ABG pCO2 POC ABG pO2 ABG pO2 ABG HCO3 ABG Base Excess ABG Hemoglobin Oxyhemoglobin Sodium Potassium Chloride Carbon Dioxide BUN Creatinine Glucose POC Glucose 257 H 258 H 120 H Lactic Acid Calcium AST Alkaline Phosphatase Albumin Urine WBC (Auto)
[2017-02-06] MEDS: LEVEMIR (NF) SUB-Q SCH (10:10)
--- NOTE | 2017-02-06 16:07 | Progress Note ---
Assessment and Plan Assessment and plan: 51 YO Male with CKD,HTN, DM presents to ED for evaluation. Pt unable to provide history. Pt history taken from ED staff, and medical records. Pt found down and unresponsive by his neighbor, who subsequently called EMS. Upon arrival, patient found unresponsive on the floor with a serum glucose of 21, and covered with ants with insulin syringes around him and a bottle of atenolol which still had many pills remaining, patient has a known history of alcohol abuse and delirium tremens. The patient was administered D5 approximate 500 mls during transport without change in mental status/level of consciousness. Pt seen and evaluated in ED was was found to be unable to protect his airway. Pt intubated and placed on vent support. Pt found to have evidence of hypothyroidism. She was started on Synthroid. He has since been in the ICU. The patient continued to deteriorate. He is in this grade 4 coma, brain imaging does not show any reversible cause. The patient remains in a persistent vegetative states. Sepsis has been ruled out. volunteer services supervisor try to locate family, even spoke to the family who he lives with. They themselves were unaware of any family members. After ethics committee meeting on the patient. The decision was made to make him DO NOT RESUSCITATE and to transfer him to hospice. Given his very poor prognosis and poor likelihood of recovery. It was decided that was not his best interest to get trach and PEG. Therefore he'll be transferred to the hospice intubated, at this time he is COMFORT CARE/DNR as per Ethics committee recommendation. Diagnosis Hypoglycemic brain injury Persistent vegetative state Metabolic encephalopathy Hypoglycemia/hypothermia Acute respiratory failure mechanical ventilator greater than 96 hours Sepsis ruled out, UTI ruled out hyponatremia, Hypothyroidism DNR- awaiting hospice placement, awaiting guardianship from the state to give consent, as has no family to give consent The high probability of a clinically significant, sudden or life threatening deterioration of the [neurologic, respiratory and CV] system(s) required my full and direct attention, intervention and personal management. The aggregate critical care time was [33] minutes. This time is in addition to time spent performing reported procedures but includes the following: [] Data Review and interpretation [] Patient assessment and monitoring of vital signs [] Documentation [] Medication orders and management History Interval history: patient remains comatose, no movement of extremities Hospitalist Physical - Physical exam Narrative exam: General: comatose HEENT: Moist mucous membranes, , no lymphadenopathy Neck: supple Cardiac: S1-S2 heard Lungs: mech ventilated breath sounds Abdomen: soft , nontender, nondistended, bowel sounds positive Extremities: no edema clubbing or cyanosis Skin: no rash or lesions Neurologic: opens eyes, has corneal reflex, No gag reflex, pupils minimally responsive, no response to deep painful stimuli - Constitutional Vitals: Temp Pulse Resp BP Pulse Ox 97.5 F L 74 22 122/70 99 02/06/17 12:00 02/06/17 14:00 02/06/17 14:00 02/06/17 14:00 02/06/17 14:00 Results - Labs CBC & Chem 7: 02/09/17 07:24 02/09/17 07:24 Labs: Laboratory Last Values WBC 7.9 K/mm3 (4.5-11.0) 02/02/17 11:46 RBC 2.94 M/mm3 (3.65-5.03) L 02/02/17 11:46 Hgb 7.5 gm/dl (11.8-15.2) L 02/02/17 11:46 Hct 23.0 % (35.5-45.6) L 02/02/17 11:46 MCV 78 fl (84-94) L 02/02/17 11:46 MCH 25 pg (28-32) L 02/02/17 11:46 MCHC 32 % (32-34) 02/02/17 11:46 RDW 16.9 % (13.2-15.2) H 02/02/17 11:46 Plt Count 520 K/mm3 (140-440) H 02/02/17 11:46 Lymph % (Auto) 34.4 % (13.4-35.0) 01/22/17 04:00 [place] % (Auto) 7.9 % (0.0-7.3) H 01/22/17 04:00 Eos % (Auto) 6.2 % (0.0-4.3) H 01/22/17 04:00 Baso % (Auto) 1.1 % (0.0-1.8) 01/22/17 04:00 Lymph # 1.8 K/mm3 (1.2-5.4) 01/22/17 04:00 [place] # 0.4 K/mm3 (0.0-0.8) 01/22/17 04:00 Eos # 0.3 K/mm3 (0.0-0.4) 01/22/17 04:00 Baso # 0.1 K/mm3 (0.0-0.1) 01/22/17 04:00 Add Manual Diff Complete 01/10/17 04:30 Total Counted 100 01/10/17 04:30 Seg Neutrophils % 50.4 % (40.0-70.0) 01/22/17 04:00 Seg Neuts % (Manual) 88.0 % (40.0-70.0) H 01/10/17 04:30 Band Neutrophils % 7.0 % 01/10/17 04:30 Lymphocytes % (Manual) 4.0 % (13.4-35.0) L 01/10/17 04:30 Reactive Lymphs % (Man) 0 % 01/10/17 04:30 Monocytes % (Manual) 1.0 % (0.0-7.3) 01/10/17 04:30 Eosinophils % (Manual) 0 % (0.0-4.3) 01/10/17 04:30 Basophils % (Manual) 0 % (0.0-1.8) 01/10/17 04:30 Metamyelocytes % 0 % 01/10/17 04:30 Myelocytes % 0 % 01/10/17 04:30 Promyelocytes % 0 % 01/10/17 04:30 Blast Cells % 0 % 01/10/17 04:30 Nucleated RBC % Not Reportable 01/10/17 04:30 Seg Neutrophils # 2.7 K/mm3 (1.8-7.7) 01/22/17 04:00 Seg Neutrophils # Man 21.2 K/mm3 (1.8-7.7) H 01/10/17 04:30 Band Neutrophils # 1.7 K/mm3 01/10/17 04:30 Lymphocytes # (Manual) 1.0 K/mm3 (1.2-5.4) L 01/10/17 04:30 Abs React Lymphs (Man) 0.0 K/mm3 01/10/17 04:30 Monocytes # (Manual) 0.2 K/mm3 (0.0-0.8) 01/10/17 04:30 Eosinophils # (Manual) 0.0 K/mm3 (0.0-0.4) 01/10/17 04:30 Basophils # (Manual) 0.0 K/mm3 (0.0-0.1) 01/10/17 04:30 Metamyelocytes # 0.0 K/mm3 01/10/17 04:30 Myelocytes # 0.0 K/mm3 01/10/17 04:30 Promyelocytes # 0.0 K/mm3 01/10/17 04:30 Blast Cells # 0.0 K/mm3 01/10/17 04:30 WBC Morphology Not Reportable 01/10/17 04:30 Hypersegmented Neuts Not Reportable 01/10/17 04:30 Hyposegmented Neuts Not Reportable 01/10/17 04:30 Hypogranular Neuts Not Reportable 01/10/17 04:30 Smudge Cells Not Reportable 01/10/17 04:30 Toxic Granulation Not Reportable 01/10/17 04:30 Toxic Vacuolation Not Reportable 01/10/17 04:30 Dohle Bodies Not Reportable 01/10/17 04:30 Pelger-Huet Anomaly Not Reportable 01/10/17 04:30 [place] Rods Not Reportable 01/10/17 04:30 Platelet Estimate Consistent w auto 01/10/17 04:30 Clumped Platelets Not Reportable 01/10/17 04:30 Plt Clumps, EDTA Not Reportable 01/10/17 04:30 Large Platelets Not Reportable 01/10/17 04:30 Giant Platelets Not Reportable 01/10/17 04:30 Platelet Satelliting Not Reportable 01/10/17 04:30 Plt Morphology Comment Not Reportable 01/10/17 04:30 RBC Morphology Not Reportable 01/10/17 04:30 Dimorphic RBCs Not Reportable 01/10/17 04:30 Polychromasia Not Reportable 01/10/17 04:30 Hypochromasia 1+ 01/10/17 04:30 Poikilocytosis Not Reportable 01/10/17 04:30 Anisocytosis Not Reportable 01/10/17 04:30 Microcytosis Not Reportable 01/10/17 04:30 Macrocytosis Not Reportable 01/10/17 04:30 Spherocytes Not Reportable 01/10/17 04:30 Pappenheimer Bodies Not Reportable 01/10/17 04:30 Sickle Cells Not Reportable 01/10/17 04:30 Target Cells Not Reportable 01/10/17 04:30 Tear Drop Cells Not Reportable 01/10/17 04:30 Ovalocytes Not Reportable 01/10/17 04:30 Helmet Cells Not Reportable 01/10/17 04:30 [place] Bodies Not Reportable 01/10/17 04:30 [place] Rings Not Reportable 01/10/17 04:30 [place] Cells Not Reportable 01/10/17 04:30 Bite Cells Not Reportable 01/10/17 04:30 Crenated Cell Not Reportable 01/10/17 04:30 Elliptocytes Not Reportable 01/10/17 04:30 Acanthocytes (Spur) Not Reportable 01/10/17 04:30 Rouleaux Not Reportable 01/10/17 04:30 Hemoglobin C Crystals Not Reportable 01/10/17 04:30 Schistocytes Not Reportable 01/10/17 04:30 Malaria parasites Not Reportable 01/10/17 04:30 [place] Bodies Not Reportable 01/10/17 04:30 Hem Pathologist Commnt No 01/10/17 04:30 PT 14.1 Sec. (12.2-14.9) 01/17/17 04:10 INR 1.04 (0.87-1.13) 01/17/17 04:10 APTT 36.6 Sec. (24.2-36.6) 01/17/17 04:10 POC ABG pH 7.442 (7.35-7.45) 01/31/17 18:55 ABG pH 7.420 pH Units (7.350-7.450) 01/17/17 04:35 POC ABG pCO2 32.8 (35-45) L 01/31/17 18:55 ABG pCO2 34.5 mm Hg 01/17/17 04:35 POC ABG pO2 82 (80-105) 01/31/17 18:55 ABG pO2 160.3 mm Hg (80.0-90.0) H 01/17/17 04:35 POC ABG HCO3 22.4 01/31/17 18:55 ABG HCO3 21.9 mmol/L (20.0-26.0) 01/17/17 04:35 POC ABG Total CO2 23 01/31/17 18:55 POC ABG O2 Sat 97 01/31/17 18:55 ABG O2 Saturation 99.0 % (95.0-99.0) 01/17/17 04:35 ABG O2 Content 11.1 (0.0-44) 01/17/17 04:35 POC ABG Base Excess -2 01/31/17 18:55 ABG Base Excess -2.3 mmol/L (-2.0-3.0) L 01/17/17 04:35 ABG Hemoglobin 7.9 gm/dl (14.0-18.0) L 01/17/17 04:35 ABG Carboxyhemoglobin 1.5 % (0.0-5.0) 01/17/17 04:35 ABG Methemoglobin 0.5 % (0.0-1.5) 01/17/17 04:35 VBG pH 7.284 (7.320-7.420) L 01/09/17 10:16 Oxyhemoglobin 97.1 % (95.0-99.0) 01/17/17 04:35 FiO2 25 % 01/31/17 18:55 Sodium 137 mmol/L (137-145) 02/02/17 11:46 Potassium 3.7 mmol/L (3.6-5.0) 02/02/17 11:46 Chloride 102.3 mmol/L (98-107) 02/02/17 11:46 Carbon Dioxide 22 mmol/L (22-30) 02/02/17 11:46 Anion Gap 16 mmol/L 02/02/17 11:46 BUN 13 mg/dL (9-20) 02/02/17 11:46 Creatinine 0.6 mg/dL (0.8-1.5) L 02/02/17 11:46 Estimated GFR > 60 ml/min 02/02/17 11:46 BUN/Creatinine Ratio 22 % 02/02/17 11:46 Glucose 189 mg/dL (75-100) H 02/02/17 11:46 POC Glucose 120 (70-105) H 02/06/17 05:30 Lactic Acid 0.80 mmol/L (0.7-2.0) 01/30/17 11:49 Calcium 8.1 mg/dL (8.4-10.2) L 02/02/17 11:46 Phosphorus 3.60 mg/dL (2.5-4.5) 01/22/17 04:00 Magnesium 2.10 mg/dL (1.7-2.3) 01/22/17 04:00 Total Bilirubin 0.30 mg/dL (0.1-1.2) 01/22/17 04:00 AST 44 units/L (5-40) H 01/22/17 04:00 ALT 23 units/L (7-56) 01/22/17 04:00 Alkaline Phosphatase 379 units/L (35-129) H 01/22/17 04:00 Ammonia 35.0 umol/L (25-60) 01/09/17 10:16 Total Creatine Kinase 135 units/L (55-170) 01/09/17 10:16 CK-MB (CK-2) 7.1 ng/mL (0.0-4.0) H 01/09/17 10:16 CK-MB (CK-2) Rel Index 5.2 (0-4) H 01/09/17 10:16 Troponin T < 0.010 ng/mL (0.00-0.029) 01/09/17 10:16 NT-Pro-B Natriuret Pep 602.9 pg/mL (0-900) 01/09/17 10:16 Total Protein 7.9 g/dL (6.3-8.2) 01/22/17 04:00 Albumin 2.7 g/dL (3.9-5) L 01/22/17 04:00 Albumin/Globulin Ratio 0.5 % 01/22/17 04:00 TSH 52.800 mlU/mL (0.270-4.200) H 01/09/17 10:16 Free T4 0.78 ng/dL (0.76-1.46) 01/09/17 10:16 Total Cortisol 54.8 mcg/dL () 01/09/17 16:19 Urine Color Yellow (Yellow) 01/28/17 17:52 Urine Turbidity Clear (Clear) 01/28/17 17:52 Urine pH 6.0 (5.0-7.0) 01/28/17 17:52 Ur Specific [place] 1.016 (1.003-1.030) 01/28/17 17:52 Urine Protein 100 mg/dl mg/dL (Negative) 01/28/17 17:52 Urine Glucose (UA) >=500 mg/dL (Negative) 01/28/17 17:52 Urine Ketones Neg mg/dL (Negative) 01/28/17 17:52 Urine Blood Sm (Negative) 01/28/17 17:52 Urine Nitrite Neg (Negative) 01/28/17 17:52 Urine Bilirubin Neg (Negative) 01/28/17 17:52 Urine Urobilinogen < 2.0 mg/dL (<2.0) 01/28/17 17:52 Ur Leukocyte Esterase Lg (Negative) 01/28/17 17:52 Urine WBC (Auto) > 182.0 /HPF (0.0-6.0) H 01/28/17 17:52 Urine RBC (Auto) 113.0 /HPF (0.0-6.0) 01/28/17 17:52 Urine Bacteria (Auto) 2+ /HPF (Negative) 01/28/17 17:52 Urine WBC Clumps 3+ /HPF 01/28/17 17:52 Urine Mucus Few /HPF 01/14/17 14:07 Urine Yeast ([place]) 3+ /HPF 01/14/17 14:07 Salicylates < 0.3 mg/dL (2.8-20.0) L 01/09/17 10:16 Urine Opiates Screen Presumptive negative 01/09/17 10:23 Urine Methadone Screen Presumptive negative 01/09/17 10:23 Acetaminophen < 15.0 ug/mL (10.0-30.0) 01/09/17 10:16 Ur Barbiturates Screen Presumptive negative 01/09/17 10:23 Ur Phencyclidine Scrn Presumptive negative 01/09/17 10:23 Ur Amphetamines Screen Presumptive negative 01/09/17 10:23 U Benzodiazepines Scrn Presumptive negative 01/09/17 10:23 Urine Cocaine Screen Presumptive negative 01/09/17 10:23 U Marijuana (THC) Screen Presumptive negative 01/09/17 10:23 Drugs of Abuse Note Disclamer 01/09/17 10:23 Plasma/Serum Alcohol < 0.01 gm% (0-0.07) 01/09/17 10:16
[2017-02-06] MEDS ORDERED: NACL 0.9% 250ML 250 ML IV ONE (19:30)
[2017-02-07] MEDS: NOVOLOG SUB-Q SCH ×3 (00:23→15:27)
[2017-02-07] MEDS: SYNTHROID PO SCH (06:08)
[2017-02-07] MEDS: HEPARIN SUB-Q SCH ×2 (10:02→22:25)
[2017-02-07] MEDS: LEVEMIR (NF) SUB-Q SCH (10:02)
[2017-02-07] MEDS: NORMODYNE PO SCH ×2 (10:03→15:28)
[2017-02-07] MEDS: PEPCID PO SCH ×2 (10:03→22:25)
--- NOTE | 2017-02-07 12:13 | Progress Note ---
Assessment and Plan Assessment and plan: 51 YO Male with CKD,HTN, DM presents to ED for evaluation. Pt unable to provide history. Pt history taken from ED staff, and medical records. Pt found down and unresponsive by his neighbor, who subsequently called EMS. Upon arrival, patient found unresponsive on the floor with a serum glucose of 21, and covered with ants with insulin syringes around him and a bottle of atenolol which still had many pills remaining, patient has a known history of alcohol abuse and delirium tremens. The patient was administered D5 approximate 500 mls during transport without change in mental status/level of consciousness. Pt seen and evaluated in ED was was found to be unable to protect his airway. Pt intubated and placed on vent support. Pt found to have evidence of hypothyroidism. She was started on Synthroid. He has since been in the ICU. The patient continued to deteriorate. He is in this grade 4 coma, brain imaging does not show any reversible cause. The patient remains in a persistent vegetative states. Sepsis has been ruled out. financial services associate try to locate family, even spoke to the family who he lives with. They themselves were unaware of any family members. After ethics committee meeting on the patient. The decision was made to make him DO NOT RESUSCITATE and to transfer him to hospice. Given his very poor prognosis and poor likelihood of recovery. It was decided that was not his best interest to get trach and PEG. Therefore he'll be transferred to the hospice intubated, at this time he is COMFORT CARE as per Ethics committee recommendation. Diagnosis Hypoglycemic brain injury Persistent vegetative state Metabolic encephalopathy Hypoglycemia/hypothermia Acute respiratory failure mechanical ventilator greater than 96 hours Sepsis ruled out, UTI ruled out hyponatremia, Hypothyroidism DNR- awaiting hospice placement, awaiting guardianship from the state to give consent, as has no family to give consent History Interval history: no new issues overnight Hospitalist Physical - Constitutional Vitals: Temp Pulse Resp BP Pulse Ox 99.6 F 88 31 H 126/79 99 02/07/17 11:29 02/07/17 11:42 02/07/17 11:42 02/07/17 11:42 02/07/17 11:42 General appearance: Present: no acute distress - EENT Eyes: Present: PERRL, EOM intact ENT: hearing intact, clear oral mucosa, dentition normal - Neck Neck: Present: supple, normal ROM - Respiratory Respiratory effort: normal Respiratory: bilateral: CTA - Cardiovascular Rhythm: regular Heart Sounds: Present: S1 & S2. Absent: gallop, rub - Extremities Extremities: no ischemia, No edema, Full ROM - Abdominal General gastrointestinal: soft, non-tender, non-distended, normal bowel sounds - Integumentary Integumentary: Present: clear, warm, dry - Neurologic Neurologic: CNII-XII intact, moves all extremities Results - Labs CBC & Chem 7: 02/02/17 11:46 02/02/17 11:46 Labs: Laboratory Last Values WBC 7.9 K/mm3 (4.5-11.0) 02/02/17 11:46 RBC 2.94 M/mm3 (3.65-5.03) L 02/02/17 11:46 Hgb 7.5 gm/dl (11.8-15.2) L 02/02/17 11:46 Hct 23.0 % (35.5-45.6) L 02/02/17 11:46 MCV 78 fl (84-94) L 02/02/17 11:46 MCH 25 pg (28-32) L 02/02/17 11:46 MCHC 32 % (32-34) 02/02/17 11:46 RDW 16.9 % (13.2-15.2) H 02/02/17 11:46 Plt Count 520 K/mm3 (140-440) H 02/02/17 11:46 Lymph % (Auto) 34.4 % (13.4-35.0) 01/22/17 04:00 [place] % (Auto) 7.9 % (0.0-7.3) H 01/22/17 04:00 Eos % (Auto) 6.2 % (0.0-4.3) H 01/22/17 04:00 Baso % (Auto) 1.1 % (0.0-1.8) 01/22/17 04:00 Lymph # 1.8 K/mm3 (1.2-5.4) 01/22/17 04:00 [place] # 0.4 K/mm3 (0.0-0.8) 01/22/17 04:00 Eos # 0.3 K/mm3 (0.0-0.4) 01/22/17 04:00 Baso # 0.1 K/mm3 (0.0-0.1) 01/22/17 04:00 Add Manual Diff Complete 01/10/17 04:30 Total Counted 100 01/10/17 04:30 Seg Neutrophils % 50.4 % (40.0-70.0) 01/22/17 04:00 Seg Neuts % (Manual) 88.0 % (40.0-70.0) H 01/10/17 04:30 Band Neutrophils % 7.0 % 01/10/17 04:30 Lymphocytes % (Manual) 4.0 % (13.4-35.0) L 01/10/17 04:30 Reactive Lymphs % (Man) 0 % 01/10/17 04:30 Monocytes % (Manual) 1.0 % (0.0-7.3) 01/10/17 04:30 Eosinophils % (Manual) 0 % (0.0-4.3) 01/10/17 04:30 Basophils % (Manual) 0 % (0.0-1.8) 01/10/17 04:30 Metamyelocytes % 0 % 01/10/17 04:30 Myelocytes % 0 % 01/10/17 04:30 Promyelocytes % 0 % 01/10/17 04:30 Blast Cells % 0 % 01/10/17 04:30 Nucleated RBC % Not Reportable 01/10/17 04:30 Seg Neutrophils # 2.7 K/mm3 (1.8-7.7) 01/22/17 04:00 Seg Neutrophils # Man 21.2 K/mm3 (1.8-7.7) H 01/10/17 04:30 Band Neutrophils # 1.7 K/mm3 01/10/17 04:30 Lymphocytes # (Manual) 1.0 K/mm3 (1.2-5.4) L 01/10/17 04:30 Abs React Lymphs (Man) 0.0 K/mm3 01/10/17 04:30 Monocytes # (Manual) 0.2 K/mm3 (0.0-0.8) 01/10/17 04:30 Eosinophils # (Manual) 0.0 K/mm3 (0.0-0.4) 01/10/17 04:30 Basophils # (Manual) 0.0 K/mm3 (0.0-0.1) 01/10/17 04:30 Metamyelocytes # 0.0 K/mm3 01/10/17 04:30 Myelocytes # 0.0 K/mm3 01/10/17 04:30 Promyelocytes # 0.0 K/mm3 01/10/17 04:30 Blast Cells # 0.0 K/mm3 01/10/17 04:30 WBC Morphology Not Reportable 01/10/17 04:30 Hypersegmented Neuts Not Reportable 01/10/17 04:30 Hyposegmented Neuts Not Reportable 01/10/17 04:30 Hypogranular Neuts Not Reportable 01/10/17 04:30 Smudge Cells Not Reportable 01/10/17 04:30 Toxic Granulation Not Reportable 01/10/17 04:30 Toxic Vacuolation Not Reportable 01/10/17 04:30 Dohle Bodies Not Reportable 01/10/17 04:30 Pelger-Huet Anomaly Not Reportable 01/10/17 04:30 [place] Rods Not Reportable 01/10/17 04:30 Platelet Estimate Consistent w auto 01/10/17 04:30 Clumped Platelets Not Reportable 01/10/17 04:30 Plt Clumps, EDTA Not Reportable 01/10/17 04:30 Large Platelets Not Reportable 01/10/17 04:30 Giant Platelets Not Reportable 01/10/17 04:30 Platelet Satelliting Not Reportable 01/10/17 04:30 Plt Morphology Comment Not Reportable 01/10/17 04:30 RBC Morphology Not Reportable 01/10/17 04:30 Dimorphic RBCs Not Reportable 01/10/17 04:30 Polychromasia Not Reportable 01/10/17 04:30 Hypochromasia 1+ 01/10/17 04:30 Poikilocytosis Not Reportable 01/10/17 04:30 Anisocytosis Not Reportable 01/10/17 04:30 Microcytosis Not Reportable 01/10/17 04:30 Macrocytosis Not Reportable 01/10/17 04:30 Spherocytes Not Reportable 01/10/17 04:30 Pappenheimer Bodies Not Reportable 01/10/17 04:30 Sickle Cells Not Reportable 01/10/17 04:30 Target Cells Not Reportable 01/10/17 04:30 Tear Drop Cells Not Reportable 01/10/17 04:30 Ovalocytes Not Reportable 01/10/17 04:30 Helmet Cells Not Reportable 01/10/17 04:30 [place] Bodies Not Reportable 01/10/17 04:30 [place] Rings Not Reportable 01/10/17 04:30 [place] Cells Not Reportable 01/10/17 04:30 Bite Cells Not Reportable 01/10/17 04:30 Crenated Cell Not Reportable 01/10/17 04:30 Elliptocytes Not Reportable 01/10/17 04:30 Acanthocytes (Spur) Not Reportable 01/10/17 04:30 Rouleaux Not Reportable 01/10/17 04:30 Hemoglobin C Crystals Not Reportable 01/10/17 04:30 Schistocytes Not Reportable 01/10/17 04:30 Malaria parasites Not Reportable 01/10/17 04:30 Kyle Bodies Not Reportable 01/10/17 04:30 Hem Pathologist Commnt No 01/10/17 04:30 PT 14.1 Sec. (12.2-14.9) 01/17/17 04:10 INR 1.04 (0.87-1.13) 01/17/17 04:10 APTT 36.6 Sec. (24.2-36.6) 01/17/17 04:10 POC ABG pH 7.442 (7.35-7.45) 01/31/17 18:55 ABG pH 7.420 pH Units (7.350-7.450) 01/17/17 04:35 POC ABG pCO2 32.8 (35-45) L 01/31/17 18:55 ABG pCO2 34.5 mm Hg 01/17/17 04:35 POC ABG pO2 82 (80-105) 01/31/17 18:55 ABG pO2 160.3 mm Hg (80.0-90.0) H 01/17/17 04:35 POC ABG HCO3 22.4 01/31/17 18:55 ABG HCO3 21.9 mmol/L (20.0-26.0) 01/17/17 04:35 POC ABG Total CO2 23 01/31/17 18:55 POC ABG O2 Sat 97 01/31/17 18:55 ABG O2 Saturation 99.0 % (95.0-99.0) 01/17/17 04:35 ABG O2 Content 11.1 (0.0-44) 01/17/17 04:35 POC ABG Base Excess -2 01/31/17 18:55 ABG Base Excess -2.3 mmol/L (-2.0-3.0) L 01/17/17 04:35 ABG Hemoglobin 7.9 gm/dl (14.0-18.0) L 01/17/17 04:35 ABG Carboxyhemoglobin 1.5 % (0.0-5.0) 01/17/17 04:35 ABG Methemoglobin 0.5 % (0.0-1.5) 01/17/17 04:35 VBG pH 7.284 (7.320-7.420) L 01/09/17 10:16 Oxyhemoglobin 97.1 % (95.0-99.0) 01/17/17 04:35 FiO2 25 % 01/31/17 18:55 Sodium 137 mmol/L (137-145) 02/02/17 11:46 Potassium 3.7 mmol/L (3.6-5.0) 02/02/17 11:46 Chloride 102.3 mmol/L (98-107) 02/02/17 11:46 Carbon Dioxide 22 mmol/L (22-30) 02/02/17 11:46 Anion Gap 16 mmol/L 02/02/17 11:46 BUN 13 mg/dL (9-20) 02/02/17 11:46 Creatinine 0.6 mg/dL (0.8-1.5) L 02/02/17 11:46 Estimated GFR > 60 ml/min 02/02/17 11:46 BUN/Creatinine Ratio 22 % 02/02/17 11:46 Glucose 189 mg/dL (75-100) H 02/02/17 11:46 POC Glucose 258 (70-105) H 02/07/17 05:22 Lactic Acid 0.80 mmol/L (0.7-2.0) 01/30/17 11:49 Calcium 8.1 mg/dL (8.4-10.2) L 02/02/17 11:46 Phosphorus 3.60 mg/dL (2.5-4.5) 01/22/17 04:00 Magnesium 2.10 mg/dL (1.7-2.3) 01/22/17 04:00 Total Bilirubin 0.30 mg/dL (0.1-1.2) 01/22/17 04:00 AST 44 units/L (5-40) H 01/22/17 04:00 ALT 23 units/L (7-56) 01/22/17 04:00 Alkaline Phosphatase 379 units/L (35-129) H 01/22/17 04:00 Ammonia 35.0 umol/L (25-60) 01/09/17 10:16 Total Creatine Kinase 135 units/L (55-170) 01/09/17 10:16 CK-MB (CK-2) 7.1 ng/mL (0.0-4.0) H 01/09/17 10:16 CK-MB (CK-2) Rel Index 5.2 (0-4) H 01/09/17 10:16 Troponin T < 0.010 ng/mL (0.00-0.029) 01/09/17 10:16 NT-Pro-B Natriuret Pep 602.9 pg/mL (0-900) 01/09/17 10:16 Total Protein 7.9 g/dL (6.3-8.2) 01/22/17 04:00 Albumin 2.7 g/dL (3.9-5) L 01/22/17 04:00 Albumin/Globulin Ratio 0.5 % 01/22/17 04:00 TSH 52.800 mlU/mL (0.270-4.200) H 01/09/17 10:16 Free T4 0.78 ng/dL (0.76-1.46) 01/09/17 10:16 Total Cortisol 54.8 mcg/dL () 01/09/17 16:19 Urine Color Yellow (Yellow) 01/28/17 17:52 Urine Turbidity Clear (Clear) 01/28/17 17:52 Urine pH 6.0 (5.0-7.0) 01/28/17 17:52 Ur Specific [place] 1.016 (1.003-1.030) 01/28/17 17:52 Urine Protein 100 mg/dl mg/dL (Negative) 01/28/17 17:52 Urine Glucose (UA) >=500 mg/dL (Negative) 01/28/17 17:52 Urine Ketones Neg mg/dL (Negative) 01/28/17 17:52 Urine Blood Sm (Negative) 01/28/17 17:52 Urine Nitrite Neg (Negative) 01/28/17 17:52 Urine Bilirubin Neg (Negative) 01/28/17 17:52 Urine Urobilinogen < 2.0 mg/dL (<2.0) 01/28/17 17:52 Ur Leukocyte Esterase Lg (Negative) 01/28/17 17:52 Urine WBC (Auto) > 182.0 /HPF (0.0-6.0) H 01/28/17 17:52 Urine RBC (Auto) 113.0 /HPF (0.0-6.0) 01/28/17 17:52 Urine Bacteria (Auto) 2+ /HPF (Negative) 01/28/17 17:52 Urine WBC Clumps 3+ /HPF 01/28/17 17:52 Urine Mucus Few /HPF 01/14/17 14:07 Urine Yeast (Budding) 3+ /HPF 01/14/17 14:07 Salicylates < 0.3 mg/dL (2.8-20.0) L 01/09/17 10:16 Urine Opiates Screen Presumptive negative 01/09/17 10:23 Urine Methadone Screen Presumptive negative 01/09/17 10:23 Acetaminophen < 15.0 ug/mL (10.0-30.0) 01/09/17 10:16 Ur Barbiturates Screen Presumptive negative 01/09/17 10:23 Ur Phencyclidine Scrn Presumptive negative 01/09/17 10:23 Ur Amphetamines Screen Presumptive negative 01/09/17 10:23 U Benzodiazepines Scrn Presumptive negative 01/09/17 10:23 Urine Cocaine Screen Presumptive negative 01/09/17 10:23 U Marijuana (THC) Screen Presumptive negative 01/09/17 10:23 Drugs of Abuse Note Disclamer 01/09/17 10:23 Plasma/Serum Alcohol < 0.01 gm% (0-0.07) 01/09/17 10:16
--- NOTE | 2017-02-07 14:58 | Progress Note ---
Assessment and Plan Imp: 1. Hypoglycemia/hypothermia -> suspect due to too much insulin 2. Hypothyroidism; doubt myxedema coma with normal free T4 3. Acute respiratory failure, hypoxia 4. UTI/SIRS 5. Metabolic encephalopathy Rec: 1. GI/DVT PPx/TFs 2. Reviewed chart; ethics note 01/18/17 recommended AND and "hospice"; trying to get guardianship to sign necessary orders for this 3. If unable to obtain guardianship for hospice, may have to consider trach/PEG in order to try to get him out of ICU and free up a bed for patients who are more acute/critical/salvagable 4. Poor prognosis; complex patient Unable to locate family. Subjective Date of service: 02/07/17 Principal diagnosis: Acute respiratory failure,encephalopathy Interval history: No events. On vent. Unresponsive. Active Medications Acetaminophen (Tylenol) 650 mg FEEDTUBE Q6H PRN PRN Reason: Non Cardiac Pain Or Temp>101 Last Admin: 01/29/17 21:56 Dose: 650 mg Lipase/Protease/Amylase (Pancreaze Dr 10,500 Unit) 1 each FEEDTUBE PRN PRN PRN Reason: For Clogged Feeding Tube Dextrose (D50w (25gm) Vial) 50 gm IV PRN PRN PRN Reason: Hypoglycemia Famotidine (Pepcid) 20 mg PO BID [facility] Last Admin: 02/07/17 10:03 Dose: 20 mg Heparin Sodium (Porcine) (Heparin) 5,000 unit SUB-Q Q12HR [facility] Last Admin: 02/07/17 10:02 Dose: 5,000 unit Hydralazine HCl (Apresoline) 10 mg IV Q4HR PRN PRN Reason: Hypertension Last Admin: 02/02/17 06:14 Dose: 10 mg Hydrophilic Ointment (Vaseline Lip Therapy) 1 applic TP Q2HR PRN PRN Reason: Dry Lips Insulin Aspart (Novolog) 0 units SUB-Q Q6HR [facility] PRN Reason: Protocol Last Admin: 02/07/17 10:00 Dose: 4 units Insulin Detemir (Levemir) 10 units SUB-Q DAILY [facility] Last Admin: 02/07/17 10:02 Dose: 10 units Labetalol HCl (Normodyne) 200 mg PO BID [facility] Last Admin: 02/07/17 10:03 Dose: 200 mg Levothyroxine Sodium (Synthroid) 100 mcg PO DAILY@0600 [facility] Last Admin: 02/06/17 05:30 Dose: 100 mcg Loperamide HCl (Imodium A-D) 2 mg PO Q2H PRN PRN Reason: Diarrhea Last Admin: 02/05/17 21:24 Dose: 2 mg Multi-Ingred Cream/Lotion/Oil/Oint (Artificial Tears Ophth Oint) 1 applic OU Q4HR PRN PRN Reason: Dry Eye(s) Simple Syrup (Simple Syrup) 15 ml FEEDTUBE PRN PRN PRN Reason: Hypoglycemia Last Admin: 01/31/17 23:19 Dose: 15 ml Simple Syrup (Simple Syrup) 30 ml FEEDTUBE PRN PRN PRN Reason: Hypoglycemia Sodium Bicarbonate (Sodium Bicarbonate) 325 mg FEEDTUBE PRN PRN PRN Reason: For Clogged Feeding Tube Objective Vital Signs - 12hr 02/07/17 02/07/17 02/07/17 03:00 03:50 04:00 Temperature 99.3 F Pulse Rate 76 77 Respiratory 13 15 Rate Blood Pressure 127/80 137/85 O2 Sat by Pulse 100 100 Oximetry 02/07/17 02/07/17 02/07/17 05:00 06:00 07:00 Temperature Pulse Rate 75 77 80 Respiratory 15 14 13 Rate Blood Pressure 137/83 116/73 106/70 O2 Sat by Pulse 95 97 Oximetry 02/07/17 02/07/17 02/07/17 08:00 08:26 09:00 Temperature 99.0 F Pulse Rate 82 82 85 Respiratory 13 28 H 29 H Rate Blood Pressure 116/75 122/80 122/78 O2 Sat by Pulse 100 99 Oximetry 02/07/17 02/07/17 02/07/17 10:00 10:03 11:00 Temperature Pulse Rate 86 87 92 H Respiratory 30 H 22 Rate Blood Pressure 120/77 120/77 133/83 O2 Sat by Pulse 99 98 Oximetry 02/07/17 02/07/17 02/07/17 11:29 11:42 12:00 Temperature 99.6 F Pulse Rate 88 87 Respiratory 31 H 30 H Rate Blood Pressure 126/79 128/81 O2 Sat by Pulse 99 Oximetry Constitutional: comatose, other (orally intubated, on vent) Eyes: non-icteric ENT: oropharynx moist Neck: supple Effort: normal Ascultation: Bilateral: clear Cardiovascular: regular rate and rhythm (no mrg) Gastrointestinal: normoactive bowel sounds, soft, non-tender, non-distended Integumentary: normal Extremities: no cyanosis, no edema, pink and warm Neurologic: other (unresponsive, flaccid extremities) Psychiatric: other (unable to obtain) CBC and BMP: 02/02/17 11:46 02/02/17 11:46 ABG, PT/INR, D-dimer: ABG POC ABG pH 7.442 (7.35-7.45) 01/31/17 18:55 ABG pH 7.420 pH Units (7.350-7.450) 01/17/17 04:35 POC ABG pCO2 32.8 (35-45) L 01/31/17 18:55 ABG pCO2 34.5 mm Hg 01/17/17 04:35 POC ABG pO2 82 (80-105) 01/31/17 18:55 ABG pO2 160.3 mm Hg (80.0-90.0) H 01/17/17 04:35 POC ABG HCO3 22.4 01/31/17 18:55 POC ABG Total CO2 23 01/31/17 18:55 POC ABG O2 Sat 97 01/31/17 18:55 ABG O2 Saturation 99.0 % (95.0-99.0) 01/17/17 04:35 PT/INR, D-dimer PT 14.1 Sec. (12.2-14.9) 01/17/17 04:10 INR 1.04 (0.87-1.13) 01/17/17 04:10 Abnormal lab findings: Abnormal Labs 01/09/17 01/09/17 01/09/17 12:49 13:13 14:21 WBC RBC Hgb Hct MCV MCH RDW Plt Count Lymph % (Auto) Tripp % (Auto) Eos % (Auto) Seg Neutrophils % Seg Neuts % (Manual) Lymphocytes % (Manual) Seg Neutrophils # Seg Neutrophils # Man Lymphocytes # (Manual) POC ABG pH ABG pH POC ABG pCO2 POC ABG pO2 ABG pO2 ABG HCO3 ABG Base Excess ABG Hemoglobin Oxyhemoglobin Sodium Potassium Chloride Carbon Dioxide BUN Creatinine Glucose POC Glucose < 40 L 128 H 65 L Lactic Acid Calcium AST Alkaline Phosphatase Albumin Urine WBC (Auto) 01/09/17 01/09/17 01/09/17 15:09 16:28 17:14 WBC RBC Hgb Hct MCV MCH RDW Plt Count Lymph % (Auto) Tripp % (Auto) Eos % (Auto) Seg Neutrophils % Seg Neuts % (Manual) Lymphocytes % (Manual) Seg Neutrophils # Seg Neutrophils # Man Lymphocytes # (Manual) POC ABG pH ABG pH POC ABG pCO2 POC ABG pO2 ABG pO2 ABG HCO3 ABG Base Excess ABG Hemoglobin Oxyhemoglobin Sodium Potassium Chloride Carbon Dioxide BUN Creatinine Glucose POC Glucose 120 H 44 L 112 H Lactic Acid Calcium AST Alkaline Phosphatase Albumin Urine WBC (Auto) 01/10/17 01/10/17 01/10/17 04:30 04:30 05:41 WBC 24.1 H RBC 3.38 L Hgb 8.5 L Hct 26.0 L MCV 77 L MCH 25 L RDW 17.9 H Plt Count 474 H Lymph % (Auto) Tripp % (Auto) Eos % (Auto) Seg Neutrophils % Seg Neuts % (Manual) 88.0 H Lymphocytes % (Manual) 4.0 L Seg Neutrophils # Seg Neutrophils # Man 21.2 H Lymphocytes # (Manual) 1.0 L POC ABG pH ABG pH POC ABG pCO2 POC ABG pO2 ABG pO2 ABG HCO3 ABG Base Excess ABG Hemoglobin Oxyhemoglobin Sodium Potassium Chloride Carbon Dioxide 17 L BUN 27 H Creatinine Glucose POC Glucose 68 L Lactic Acid Calcium 7.5 L AST Alkaline Phosphatase Albumin Urine WBC (Auto) 01/10/17 01/10/17 01/10/17 05:45 07:47 10:50 WBC RBC Hgb Hct MCV MCH RDW Plt Count Lymph % (Auto) Tripp % (Auto) Eos % (Auto) Seg Neutrophils % Seg Neuts % (Manual) Lymphocytes % (Manual) Seg Neutrophils # Seg Neutrophils # Man Lymphocytes # (Manual) POC ABG pH ABG pH POC ABG pCO2 26.6 L POC ABG pO2 207 H ABG pO2 ABG HCO3 ABG Base Excess ABG Hemoglobin Oxyhemoglobin Sodium Potassium Chloride Carbon Dioxide BUN Creatinine Glucose POC Glucose 148 H 165 H Lactic Acid Calcium AST Alkaline Phosphatase Albumin Urine WBC (Auto) 01/10/17 01/10/17 01/10/17 13:41 20:20 21:39 WBC RBC Hgb Hct MCV MCH RDW Plt Count Lymph % (Auto) Tripp % (Auto) Eos % (Auto) Seg Neutrophils % Seg Neuts % (Manual) Lymphocytes % (Manual) Seg Neutrophils # Seg Neutrophils # Man Lymphocytes # (Manual) POC ABG pH ABG pH POC ABG pCO2 POC ABG pO2 ABG pO2 ABG HCO3 ABG Base Excess ABG Hemoglobin Oxyhemoglobin Sodium Potassium Chloride Carbon Dioxide BUN Creatinine Glucose POC Glucose 114 H 150 H 175 H Lactic Acid Calcium AST Alkaline Phosphatase Albumin Urine WBC (Auto) 01/10/17 01/11/17 01/11/17 23:24 00:19 04:06 WBC RBC Hgb Hct MCV MCH RDW Plt Count Lymph % (Auto) Tripp % (Auto) Eos % (Auto) Seg Neutrophils % Seg Neuts % (Manual) Lymphocytes % (Manual) Seg Neutrophils # Seg Neutrophils # Man Lymphocytes # (Manual) POC ABG pH 7.463 H ABG pH POC ABG pCO2 26.2 L POC ABG pO2 185 H ABG pO2 ABG HCO3 ABG Base Excess ABG Hemoglobin Oxyhemoglobin Sodium Potassium Chloride Carbon Dioxide BUN Creatinine Glucose POC Glucose 155 H 163 H Lactic Acid Calcium AST Alkaline Phosphatase Albumin Urine WBC (Auto) 01/11/17 01/11/17 01/11/17 05:20 05:20 06:21 WBC 15.2 H RBC 3.40 L Hgb 8.9 L Hct 26.3 L MCV 78 L MCH 26 L RDW 18.6 H Plt Count 462 H Lymph % (Auto) 13.2 L Tripp % (Auto) Eos % (Auto) Seg Neutrophils % 80.8 H Seg Neuts % (Manual) Lymphocytes % (Manual) Seg Neutrophils # 12.3 H Seg Neutrophils # Man Lymphocytes # (Manual) POC ABG pH ABG pH POC ABG pCO2 POC ABG pO2 ABG pO2 ABG HCO3 ABG Base Excess ABG Hemoglobin Oxyhemoglobin Sodium Potassium 3.4 L Chloride 111.5 H Carbon Dioxide 17 L BUN Creatinine Glucose 147 H POC Glucose 139 H Lactic Acid Calcium 8.0 L AST Alkaline Phosphatase Albumin Urine WBC (Auto) 01/11/17 01/11/17 01/11/17 07:57 11:46 16:50 WBC RBC Hgb Hct MCV MCH RDW Plt Count Lymph % (Auto) Tripp % (Auto) Eos % (Auto) Seg Neutrophils % Seg Neuts % (Manual) Lymphocytes % (Manual) Seg Neutrophils # Seg Neutrophils # Man Lymphocytes # (Manual) POC ABG pH ABG pH POC ABG pCO2 POC ABG pO2 ABG pO2 ABG HCO3 ABG Base Excess ABG Hemoglobin Oxyhemoglobin Sodium Potassium Chloride Carbon Dioxide BUN Creatinine Glucose POC Glucose 188 H 199 H 235 H Lactic Acid Calcium AST Alkaline Phosphatase Albumin Urine WBC (Auto) 01/11/17 01/12/17 01/12/17 23:15 05:02 06:56 WBC RBC Hgb Hct MCV MCH RDW Plt Count Lymph % (Auto) Tripp % (Auto) Eos % (Auto) Seg Neutrophils % Seg Neuts % (Manual) Lymphocytes % (Manual) Seg Neutrophils # Seg Neutrophils # Man Lymphocytes # (Manual) POC ABG pH ABG pH POC ABG pCO2 28.0 L POC ABG pO2 178 H ABG pO2 ABG HCO3 ABG Base Excess ABG Hemoglobin Oxyhemoglobin Sodium Potassium Chloride Carbon Dioxide BUN Creatinine Glucose POC Glucose 155 H 119 H Lactic Acid Calcium AST Alkaline Phosphatase Albumin Urine WBC (Auto) 01/12/17 01/13/17 01/13/17 14:50 03:37 03:37 WBC RBC 3.61 L Hgb 9.3 L Hct 28.0 L MCV 78 L MCH 26 L RDW 18.2 H Plt Count Lymph % (Auto) Tripp % (Auto) Eos % (Auto) Seg Neutrophils % Seg Neuts % (Manual) Lymphocytes % (Manual) Seg Neutrophils # Seg Neutrophils # Man Lymphocytes # (Manual) POC ABG pH ABG pH POC ABG pCO2 POC ABG pO2 ABG pO2 ABG HCO3 ABG Base Excess ABG Hemoglobin Oxyhemoglobin Sodium Potassium Chloride 112.4 H Carbon Dioxide 19 L BUN Creatinine Glucose 118 H POC Glucose 164 H Lactic Acid Calcium 8.0 L AST Alkaline Phosphatase Albumin Urine WBC (Auto) 01/13/17 01/13/17 01/13/17 04:26 06:15 11:50 WBC RBC Hgb Hct MCV MCH RDW Plt Count Lymph % (Auto) Tripp % (Auto) Eos % (Auto) Seg Neutrophils % Seg Neuts % (Manual) Lymphocytes % (Manual) Seg Neutrophils # Seg Neutrophils # Man Lymphocytes # (Manual) POC ABG pH 7.485 H ABG pH POC ABG pCO2 25.4 L POC ABG pO2 73 L ABG pO2 ABG HCO3 ABG Base Excess ABG Hemoglobin Oxyhemoglobin Sodium Potassium Chloride Carbon Dioxide BUN Creatinine Glucose POC Glucose 116 H 171 H Lactic Acid Calcium AST Alkaline Phosphatase Albumin Urine WBC (Auto) 01/13/17 01/14/17 01/14/17 17:31 00:02 04:50 WBC RBC 3.32 L Hgb 8.5 L Hct 26.1 L MCV 79 L MCH 26 L RDW 18.2 H Plt Count Lymph % (Auto) Tripp % (Auto) 9.0 H Eos % (Auto) Seg Neutrophils % Seg Neuts % (Manual) Lymphocytes % (Manual) Seg Neutrophils # Seg Neutrophils # Man Lymphocytes # (Manual) POC ABG pH ABG pH POC ABG pCO2 POC ABG pO2 ABG pO2 ABG HCO3 ABG Base Excess ABG Hemoglobin Oxyhemoglobin Sodium Potassium Chloride Carbon Dioxide BUN Creatinine Glucose POC Glucose 203 H 157 H Lactic Acid Calcium AST Alkaline Phosphatase Albumin Urine WBC (Auto) 01/14/17 01/14/17 01/14/17 04:50 05:10 11:27 WBC RBC Hgb Hct MCV MCH RDW Plt Count Lymph % (Auto) Tripp % (Auto) Eos % (Auto) Seg Neutrophils % Seg Neuts % (Manual) Lymphocytes % (Manual) Seg Neutrophils # Seg Neutrophils # Man Lymphocytes # (Manual) POC ABG pH ABG pH POC ABG pCO2 POC ABG pO2 ABG pO2 ABG HCO3 ABG Base Excess ABG Hemoglobin Oxyhemoglobin Sodium Potassium Chloride 112.5 H Carbon Dioxide BUN Creatinine Glucose 149 H POC Glucose 176 H 147 H Lactic Acid Calcium 8.1 L AST Alkaline Phosphatase Albumin Urine WBC (Auto) 01/14/17 01/14/17 01/15/17 14:07 16:52 00:04 WBC RBC Hgb Hct MCV MCH RDW Plt Count Lymph % (Auto) Tripp % (Auto) Eos % (Auto) Seg Neutrophils % Seg Neuts % (Manual) Lymphocytes % (Manual) Seg Neutrophils # Seg Neutrophils # Man Lymphocytes # (Manual) POC ABG pH ABG pH POC ABG pCO2 POC ABG pO2 ABG pO2 ABG HCO3 ABG Base Excess ABG Hemoglobin Oxyhemoglobin Sodium Potassium Chloride Carbon Dioxide BUN Creatinine Glucose POC Glucose 131 H 193 H Lactic Acid Calcium AST Alkaline Phosphatase Albumin Urine WBC (Auto) 53.0 H 01/15/17 01/15/17 01/15/17 05:26 11:49 17:47 WBC RBC Hgb Hct MCV MCH RDW Plt Count Lymph % (Auto) Tripp % (Auto) Eos % (Auto) Seg Neutrophils % Seg Neuts % (Manual) Lymphocytes % (Manual) Seg Neutrophils # Seg Neutrophils # Man Lymphocytes # (Manual) POC ABG pH ABG pH POC ABG pCO2 POC ABG pO2 ABG pO2 ABG HCO3 ABG Base Excess ABG Hemoglobin Oxyhemoglobin Sodium Potassium Chloride Carbon Dioxide BUN Creatinine Glucose POC Glucose 215 H 121 H 211 H Lactic Acid Calcium AST Alkaline Phosphatase Albumin Urine WBC (Auto) 01/15/17 01/16/17 01/16/17 21:33 04:30 05:28 WBC RBC Hgb Hct MCV MCH RDW Plt Count Lymph % (Auto) Tripp % (Auto) Eos % (Auto) Seg Neutrophils % Seg Neuts % (Manual) Lymphocytes % (Manual) Seg Neutrophils # Seg Neutrophils # Man Lymphocytes # (Manual) POC ABG pH ABG pH 7.457 H POC ABG pCO2 POC ABG pO2 ABG pO2 55.1 L ABG HCO3 19.4 L ABG Base Excess -4.0 L ABG Hemoglobin 6.8 L Oxyhemoglobin 94.9 L Sodium Potassium Chloride Carbon Dioxide BUN Creatinine Glucose POC Glucose 275 H 271 H Lactic Acid Calcium AST Alkaline Phosphatase Albumin Urine WBC (Auto) 01/16/17 01/16/17 01/17/17 13:45 21:39 04:10 WBC 4.4 L RBC 2.98 L Hgb 7.7 L Hct 23.3 L MCV 78 L MCH 26 L RDW 18.1 H Plt Count Lymph % (Auto) Tripp % (Auto) Eos % (Auto) Seg Neutrophils % Seg Neuts % (Manual) Lymphocytes % (Manual) Seg Neutrophils # Seg Neutrophils # Man Lymphocytes # (Manual) POC ABG pH ABG pH POC ABG pCO2 POC ABG pO2 ABG pO2 ABG HCO3 ABG Base Excess ABG Hemoglobin Oxyhemoglobin Sodium Potassium Chloride Carbon Dioxide BUN Creatinine Glucose POC Glucose 236 H 258 H Lactic Acid Calcium AST Alkaline Phosphatase Albumin Urine WBC (Auto) 01/17/17 01/17/17 01/17/17 04:10 04:35 12:23 WBC RBC Hgb Hct MCV MCH RDW Plt Count Lymph % (Auto) Tripp % (Auto) Eos % (Auto) Seg Neutrophils % Seg Neuts % (Manual) Lymphocytes % (Manual) Seg Neutrophils # Seg Neutrophils # Man Lymphocytes # (Manual) POC ABG pH ABG pH POC ABG pCO2 POC ABG pO2 ABG pO2 160.3 H ABG HCO3 ABG Base Excess -2.3 L ABG Hemoglobin 7.9 L Oxyhemoglobin Sodium Potassium 3.3 L Chloride 108.7 H Carbon Dioxide 20 L BUN 8 L Creatinine Glucose 202 H POC Glucose 321 H Lactic Acid Calcium 7.6 L AST Alkaline Phosphatase Albumin Urine WBC (Auto) 01/17/17 01/18/17 01/18/17 16:01 05:07 12:09 WBC RBC Hgb Hct MCV MCH RDW Plt Count Lymph % (Auto) Tripp % (Auto) Eos % (Auto) Seg Neutrophils % Seg Neuts % (Manual) Lymphocytes % (Manual) Seg Neutrophils # Seg Neutrophils # Man Lymphocytes # (Manual) POC ABG pH ABG pH POC ABG pCO2 POC ABG pO2 ABG pO2 ABG HCO3 ABG Base Excess ABG Hemoglobin Oxyhemoglobin Sodium Potassium Chloride Carbon Dioxide BUN Creatinine Glucose POC Glucose 239 H 155 H 203 H Lactic Acid Calcium AST Alkaline Phosphatase Albumin Urine WBC (Auto) 01/18/17 01/18/17 01/19/17 17:54 23:43 04:28 WBC RBC Hgb Hct MCV MCH RDW Plt Count Lymph % (Auto) Tripp % (Auto) Eos % (Auto) Seg Neutrophils % Seg Neuts % (Manual) Lymphocytes % (Manual) Seg Neutrophils # Seg Neutrophils # Man Lymphocytes # (Manual) POC ABG pH ABG pH POC ABG pCO2 POC ABG pO2 ABG pO2 ABG HCO3 ABG Base Excess ABG Hemoglobin Oxyhemoglobin Sodium Potassium Chloride Carbon Dioxide BUN Creatinine Glucose POC Glucose 132 H 125 H 182 H Lactic Acid Calcium AST Alkaline Phosphatase Albumin Urine WBC (Auto) 01/19/17 01/19/17 01/20/17 12:11 17:23 00:12 WBC RBC Hgb Hct MCV MCH RDW Plt Count Lymph % (Auto) Tripp % (Auto) Eos % (Auto) Seg Neutrophils % Seg Neuts % (Manual) Lymphocytes % (Manual) Seg Neutrophils # Seg Neutrophils # Man Lymphocytes # (Manual) POC ABG pH ABG pH POC ABG pCO2 POC ABG pO2 ABG pO2 ABG HCO3 ABG Base Excess ABG Hemoglobin Oxyhemoglobin Sodium Potassium Chloride Carbon Dioxide BUN Creatinine Glucose POC Glucose 153 H 66 L 139 H Lactic Acid Calcium AST Alkaline Phosphatase Albumin Urine WBC (Auto) 01/20/17 01/20/17 01/20/17 05:44 11:48 17:42 WBC RBC Hgb Hct MCV MCH RDW Plt Count Lymph % (Auto) Tripp % (Auto) Eos % (Auto) Seg Neutrophils % Seg Neuts % (Manual) Lymphocytes % (Manual) Seg Neutrophils # Seg Neutrophils # Man Lymphocytes # (Manual) POC ABG pH ABG pH POC ABG pCO2 POC ABG pO2 ABG pO2 ABG HCO3 ABG Base Excess ABG Hemoglobin Oxyhemoglobin Sodium Potassium Chloride Carbon Dioxide BUN Creatinine Glucose POC Glucose 176 H 218 H 132 H Lactic Acid Calcium AST Alkaline Phosphatase Albumin Urine WBC (Auto) 01/20/17 01/21/17 01/21/17 23:43 05:34 11:17 WBC RBC Hgb Hct MCV MCH RDW Plt Count Lymph % (Auto) Tripp % (Auto) Eos % (Auto) Seg Neutrophils % Seg Neuts % (Manual) Lymphocytes % (Manual) Seg Neutrophils # Seg Neutrophils # Man Lymphocytes # (Manual) POC ABG pH ABG pH POC ABG pCO2 POC ABG pO2 ABG pO2 ABG HCO3 ABG Base Excess ABG Hemoglobin Oxyhemoglobin Sodium Potassium Chloride Carbon Dioxide BUN Creatinine Glucose POC Glucose 178 H 106 H 213 H Lactic Acid Calcium AST Alkaline Phosphatase Albumin Urine WBC (Auto) 01/21/17 01/22/17 01/22/17 23:37 04:00 04:00 WBC RBC 3.26 L Hgb 8.3 L Hct 25.5 L MCV 78 L MCH 25 L RDW 17.9 H Plt Count Lymph % (Auto) Tripp % (Auto) 7.9 H Eos % (Auto) 6.2 H Seg Neutrophils % Seg Neuts % (Manual) Lymphocytes % (Manual) Seg Neutrophils # Seg Neutrophils # Man Lymphocytes # (Manual) POC ABG pH ABG pH POC ABG pCO2 POC ABG pO2 ABG pO2 ABG HCO3 ABG Base Excess ABG Hemoglobin Oxyhemoglobin Sodium Potassium Chloride 95.5 L Carbon Dioxide 31 H D BUN Creatinine Glucose 134 H POC Glucose 140 H Lactic Acid Calcium AST 44 H Alkaline Phosphatase 379 H Albumin 2.7 L Urine WBC (Auto) 01/22/17 01/22/17 01/22/17 04:58 12:12 18:12 WBC RBC Hgb Hct MCV MCH RDW Plt Count Lymph % (Auto) Tripp % (Auto) Eos % (Auto) Seg Neutrophils % Seg Neuts % (Manual) Lymphocytes % (Manual) Seg Neutrophils # Seg Neutrophils # Man Lymphocytes # (Manual) POC ABG pH ABG pH POC ABG pCO2 POC ABG pO2 ABG pO2 ABG HCO3 ABG Base Excess ABG Hemoglobin Oxyhemoglobin Sodium Potassium Chloride Carbon Dioxide BUN Creatinine Glucose POC Glucose 146 H 255 H 182 H Lactic Acid Calcium AST Alkaline Phosphatase Albumin Urine WBC (Auto) 01/22/17 01/23/17 01/23/17 23:39 04:43 12:12 WBC RBC Hgb Hct MCV MCH RDW Plt Count Lymph % (Auto) Tripp % (Auto) Eos % (Auto) Seg Neutrophils % Seg Neuts % (Manual) Lymphocytes % (Manual) Seg Neutrophils # Seg Neutrophils # Man Lymphocytes # (Manual) POC ABG pH ABG pH POC ABG pCO2 POC ABG pO2 ABG pO2 ABG HCO3 ABG Base Excess ABG Hemoglobin Oxyhemoglobin Sodium Potassium Chloride Carbon Dioxide BUN Creatinine Glucose POC Glucose 134 H 218 H 128 H Lactic Acid Calcium AST Alkaline Phosphatase Albumin Urine WBC (Auto) 01/23/17 01/24/17 01/24/17 17:36 00:08 05:16 WBC RBC Hgb Hct MCV MCH RDW Plt Count Lymph % (Auto) Tripp % (Auto) Eos % (Auto) Seg Neutrophils % Seg Neuts % (Manual) Lymphocytes % (Manual) Seg Neutrophils # Seg Neutrophils # Man Lymphocytes # (Manual) POC ABG pH ABG pH POC ABG pCO2 POC ABG pO2 ABG pO2 ABG HCO3 ABG Base Excess ABG Hemoglobin Oxyhemoglobin Sodium Potassium Chloride Carbon Dioxide BUN Creatinine Glucose POC Glucose 156 H 129 H 169 H Lactic Acid Calcium AST Alkaline Phosphatase Albumin Urine WBC (Auto) 01/24/17 01/24/17 01/24/17 11:40 17:43 23:23 WBC RBC Hgb Hct MCV MCH RDW Plt Count Lymph % (Auto) Tripp % (Auto) Eos % (Auto) Seg Neutrophils % Seg Neuts % (Manual) Lymphocytes % (Manual) Seg Neutrophils # Seg Neutrophils # Man Lymphocytes # (Manual) POC ABG pH ABG pH POC ABG pCO2 POC ABG pO2 ABG pO2 ABG HCO3 ABG Base Excess ABG Hemoglobin Oxyhemoglobin Sodium Potassium Chloride Carbon Dioxide BUN Creatinine Glucose POC Glucose 187 H 215 H 222 H Lactic Acid Calcium AST Alkaline Phosphatase Albumin Urine WBC (Auto) 01/25/17 01/25/17 01/25/17 04:56 11:52 17:37 WBC RBC Hgb Hct MCV MCH RDW Plt Count Lymph % (Auto) Tripp % (Auto) Eos % (Auto) Seg Neutrophils % Seg Neuts % (Manual) Lymphocytes % (Manual) Seg Neutrophils # Seg Neutrophils # Man Lymphocytes # (Manual) POC ABG pH ABG pH POC ABG pCO2 POC ABG pO2 ABG pO2 ABG HCO3 ABG Base Excess ABG Hemoglobin Oxyhemoglobin Sodium Potassium Chloride Carbon Dioxide BUN Creatinine Glucose POC Glucose 210 H 284 H 218 H Lactic Acid Calcium AST Alkaline Phosphatase Albumin Urine WBC (Auto) 01/26/17 01/26/17 01/26/17 00:02 05:33 12:17 WBC RBC Hgb Hct MCV MCH RDW Plt Count Lymph % (Auto) Tripp % (Auto) Eos % (Auto) Seg Neutrophils % Seg Neuts % (Manual) Lymphocytes % (Manual) Seg Neutrophils # Seg Neutrophils # Man Lymphocytes # (Manual) POC ABG pH ABG pH POC ABG pCO2 POC ABG pO2 ABG pO2 ABG HCO3 ABG Base Excess ABG Hemoglobin Oxyhemoglobin Sodium Potassium Chloride Carbon Dioxide BUN Creatinine Glucose POC Glucose 192 H 199 H 227 H Lactic Acid Calcium AST Alkaline Phosphatase Albumin Urine WBC (Auto) 01/26/17 01/26/17 01/27/17 17:50 23:57 05:31 WBC RBC Hgb Hct MCV MCH RDW Plt Count Lymph % (Auto) Tripp % (Auto) Eos % (Auto) Seg Neutrophils % Seg Neuts % (Manual) Lymphocytes % (Manual) Seg Neutrophils # Seg Neutrophils # Man Lymphocytes # (Manual) POC ABG pH ABG pH POC ABG pCO2 POC ABG pO2 ABG pO2 ABG HCO3 ABG Base Excess ABG Hemoglobin Oxyhemoglobin Sodium Potassium Chloride Carbon Dioxide BUN Creatinine Glucose POC Glucose 229 H 186 H 285 H Lactic Acid Calcium AST Alkaline Phosphatase Albumin Urine WBC (Auto) 01/27/17 01/27/17 01/27/17 11:42 17:47 23:58 WBC RBC Hgb Hct MCV MCH RDW Plt Count Lymph % (Auto) Tripp % (Auto) Eos % (Auto) Seg Neutrophils % Seg Neuts % (Manual) Lymphocytes % (Manual) Seg Neutrophils # Seg Neutrophils # Man Lymphocytes # (Manual) POC ABG pH ABG pH POC ABG pCO2 POC ABG pO2 ABG pO2 ABG HCO3 ABG Base Excess ABG Hemoglobin Oxyhemoglobin Sodium Potassium Chloride Carbon Dioxide BUN Creatinine Glucose POC Glucose 260 H 329 H 225 H Lactic Acid Calcium AST Alkaline Phosphatase Albumin Urine WBC (Auto) 01/27/17 01/27/17 01/28/17 Unknown Unknown 03:44 WBC 12.1 H RBC 3.28 L 3.14 L Hgb 8.5 L 8.2 L Hct 25.5 L 24.1 L MCV 78 L 77 L MCH 26 L 26 L RDW 16.8 H 16.9 H Plt Count 601 H 567 H Lymph % (Auto) Tripp % (Auto) Eos % (Auto) Seg Neutrophils % Seg Neuts % (Manual) Lymphocytes % (Manual) Seg Neutrophils # Seg Neutrophils # Man Lymphocytes # (Manual) POC ABG pH ABG pH POC ABG pCO2 POC ABG pO2 ABG pO2 ABG HCO3 ABG Base Excess ABG Hemoglobin Oxyhemoglobin Sodium 128 L Potassium 5.4 H Chloride 87.5 L Carbon Dioxide BUN 44 H Creatinine Glucose 250 H POC Glucose Lactic Acid Calcium AST Alkaline Phosphatase Albumin Urine WBC (Auto) 01/28/17 01/28/17 01/28/17 03:44 11:43 16:47 WBC RBC Hgb Hct MCV MCH RDW Plt Count Lymph % (Auto) Tripp % (Auto) Eos % (Auto) Seg Neutrophils % Seg Neuts % (Manual) Lymphocytes % (Manual) Seg Neutrophils # Seg Neutrophils # Man Lymphocytes # (Manual) POC ABG pH ABG pH POC ABG pCO2 POC ABG pO2 ABG pO2 ABG HCO3 ABG Base Excess ABG Hemoglobin Oxyhemoglobin Sodium Potassium Chloride Carbon Dioxide BUN 42 H Creatinine Glucose 128 H POC Glucose 351 H 249 H Lactic Acid Calcium AST Alkaline Phosphatase Albumin Urine WBC (Auto) 01/28/17 01/29/17 01/29/17 17:52 05:25 05:25 WBC 13.6 H RBC 3.25 L Hgb 8.3 L Hct 25.1 L MCV 77 L MCH 26 L RDW 16.8 H Plt Count 514 H Lymph % (Auto) Tripp % (Auto) Eos % (Auto) Seg Neutrophils % Seg Neuts % (Manual) Lymphocytes % (Manual) Seg Neutrophils # Seg Neutrophils # Man Lymphocytes # (Manual) POC ABG pH ABG pH POC ABG pCO2 POC ABG pO2 ABG pO2 ABG HCO3 ABG Base Excess ABG Hemoglobin Oxyhemoglobin Sodium Potassium Chloride 97.8 L Carbon Dioxide BUN 34 H Creatinine Glucose 222 H POC Glucose Lactic Acid Calcium AST Alkaline Phosphatase Albumin Urine WBC (Auto) > 182.0 H 01/29/17 01/29/17 01/29/17 09:32 11:56 18:11 WBC RBC Hgb Hct MCV MCH RDW Plt Count Lymph % (Auto) Tripp % (Auto) Eos % (Auto) Seg Neutrophils % Seg Neuts % (Manual) Lymphocytes % (Manual) Seg Neutrophils # Seg Neutrophils # Man Lymphocytes # (Manual) POC ABG pH ABG pH POC ABG pCO2 POC ABG pO2 ABG pO2 ABG HCO3 ABG Base Excess ABG Hemoglobin Oxyhemoglobin Sodium Potassium Chloride Carbon Dioxide BUN Creatinine Glucose POC Glucose 261 H 215 H Lactic Acid 2.50 H* Calcium AST Alkaline Phosphatase Albumin Urine WBC (Auto) 01/29/17 01/30/17 01/30/17 23:55 05:31 05:31 WBC 15.2 H RBC 3.09 L Hgb 7.9 L Hct 23.9 L MCV 77 L MCH 26 L RDW 16.9 H Plt Count 569 H Lymph % (Auto) Tripp % (Auto) Eos % (Auto) Seg Neutrophils % Seg Neuts % (Manual) Lymphocytes % (Manual) Seg Neutrophils # Seg Neutrophils # Man Lymphocytes # (Manual) POC ABG pH ABG pH POC ABG pCO2 POC ABG pO2 ABG pO2 ABG HCO3 ABG Base Excess ABG Hemoglobin Oxyhemoglobin Sodium Potassium Chloride Carbon Dioxide BUN 24 H Creatinine Glucose 235 H POC Glucose 176 H Lactic Acid Calcium AST Alkaline Phosphatase Albumin Urine WBC (Auto) 01/30/17 01/30/17 01/30/17 05:34 11:38 17:58 WBC RBC Hgb Hct MCV MCH RDW Plt Count Lymph % (Auto) Tripp % (Auto) Eos % (Auto) Seg Neutrophils % Seg Neuts % (Manual) Lymphocytes % (Manual) Seg Neutrophils # Seg Neutrophils # Man Lymphocytes # (Manual) POC ABG pH ABG pH POC ABG pCO2 POC ABG pO2 ABG pO2 ABG HCO3 ABG Base Excess ABG Hemoglobin Oxyhemoglobin Sodium Potassium Chloride Carbon Dioxide BUN Creatinine Glucose POC Glucose 243 H 298 H 208 H Lactic Acid Calcium AST Alkaline Phosphatase Albumin Urine WBC (Auto) 01/30/17 01/31/17 01/31/17 23:29 04:39 04:39 WBC 11.4 H RBC 3.22 L Hgb 8.2 L Hct 24.9 L MCV 78 L MCH 25 L RDW 17.2 H Plt Count 576 H Lymph % (Auto) Tripp % (Auto) Eos % (Auto) Seg Neutrophils % Seg Neuts % (Manual) Lymphocytes % (Manual) Seg Neutrophils # Seg Neutrophils # Man Lymphocytes # (Manual) POC ABG pH ABG pH POC ABG pCO2 POC ABG pO2 ABG pO2 ABG HCO3 ABG Base Excess ABG Hemoglobin Oxyhemoglobin Sodium Potassium Chloride Carbon Dioxide BUN Creatinine 0.7 L Glucose 223 H POC Glucose 245 H Lactic Acid Calcium AST Alkaline Phosphatase Albumin Urine WBC (Auto) 01/31/17 01/31/17 01/31/17 05:57 12:23 17:41 WBC RBC Hgb Hct MCV MCH RDW Plt Count Lymph % (Auto) Tripp % (Auto) Eos % (Auto) Seg Neutrophils % Seg Neuts % (Manual) Lymphocytes % (Manual) Seg Neutrophils # Seg Neutrophils # Man Lymphocytes # (Manual) POC ABG pH ABG pH POC ABG pCO2 POC ABG pO2 ABG pO2 ABG HCO3 ABG Base Excess ABG Hemoglobin Oxyhemoglobin Sodium Potassium Chloride Carbon Dioxide BUN Creatinine Glucose POC Glucose 264 H 252 H 208 H Lactic Acid Calcium AST Alkaline Phosphatase Albumin Urine WBC (Auto) 01/31/17 01/31/17 02/01/17 18:55 22:59 03:38 WBC RBC 2.81 L Hgb 7.4 L Hct 22.1 L MCV 79 L MCH 27 L RDW 17.0 H Plt Count 540 H Lymph % (Auto) Tripp % (Auto) Eos % (Auto) Seg Neutrophils % Seg Neuts % (Manual) Lymphocytes % (Manual) Seg Neutrophils # Seg Neutrophils # Man Lymphocytes # (Manual) POC ABG pH ABG pH POC ABG pCO2 32.8 L POC ABG pO2 ABG pO2 ABG HCO3 ABG Base Excess ABG Hemoglobin Oxyhemoglobin Sodium Potassium Chloride Carbon Dioxide BUN Creatinine Glucose POC Glucose 40 L Lactic Acid Calcium AST Alkaline Phosphatase Albumin Urine WBC (Auto) 02/01/17 02/01/17 02/01/17 03:38 05:17 12:19 WBC RBC Hgb Hct MCV MCH RDW Plt Count Lymph % (Auto) Tripp % (Auto) Eos % (Auto) Seg Neutrophils % Seg Neuts % (Manual) Lymphocytes % (Manual) Seg Neutrophils # Seg Neutrophils # Man Lymphocytes # (Manual) POC ABG pH ABG pH POC ABG pCO2 POC ABG pO2 ABG pO2 ABG HCO3 ABG Base Excess ABG Hemoglobin Oxyhemoglobin Sodium Potassium Chloride Carbon Dioxide 21 L BUN Creatinine 0.7 L Glucose POC Glucose 140 H 213 H Lactic Acid Calcium AST Alkaline Phosphatase Albumin Urine WBC (Auto) 02/01/17 02/01/17 02/02/17 16:44 23:59 05:14 WBC RBC Hgb Hct MCV MCH RDW Plt Count Lymph % (Auto) Tripp % (Auto) Eos % (Auto) Seg Neutrophils % Seg Neuts % (Manual) Lymphocytes % (Manual) Seg Neutrophils # Seg Neutrophils # Man Lymphocytes # (Manual) POC ABG pH ABG pH POC ABG pCO2 POC ABG pO2 ABG pO2 ABG HCO3 ABG Base Excess ABG Hemoglobin Oxyhemoglobin Sodium Potassium Chloride Carbon Dioxide BUN Creatinine Glucose POC Glucose 172 H 181 H 194 H Lactic Acid Calcium AST Alkaline Phosphatase Albumin Urine WBC (Auto) 02/02/17 02/02/17 02/02/17 11:24 11:46 11:46 WBC RBC 2.94 L Hgb 7.5 L Hct 23.0 L MCV 78 L MCH 25 L RDW 16.9 H Plt Count 520 H Lymph % (Auto) Tripp % (Auto) Eos % (Auto) Seg Neutrophils % Seg Neuts % (Manual) Lymphocytes % (Manual) Seg Neutrophils # Seg Neutrophils # Man Lymphocytes # (Manual) POC ABG pH ABG pH POC ABG pCO2 POC ABG pO2 ABG pO2 ABG HCO3 ABG Base Excess ABG Hemoglobin Oxyhemoglobin Sodium Potassium Chloride Carbon Dioxide BUN Creatinine 0.6 L Glucose 189 H POC Glucose 209 H Lactic Acid Calcium 8.1 L AST Alkaline Phosphatase Albumin Urine WBC (Auto) 02/02/17 02/02/17 02/03/17 17:47 23:32 05:53 WBC RBC Hgb Hct MCV MCH RDW Plt Count Lymph % (Auto) Tripp % (Auto) Eos % (Auto) Seg Neutrophils % Seg Neuts % (Manual) Lymphocytes % (Manual) Seg Neutrophils # Seg Neutrophils # Man Lymphocytes # (Manual) POC ABG pH ABG pH POC ABG pCO2 POC ABG pO2 ABG pO2 ABG HCO3 ABG Base Excess ABG Hemoglobin Oxyhemoglobin Sodium Potassium Chloride Carbon Dioxide BUN Creatinine Glucose POC Glucose 147 H 176 H 224 H Lactic Acid Calcium AST Alkaline Phosphatase Albumin Urine WBC (Auto) 02/03/17 02/03/17 02/03/17 11:19 16:59 23:38 WBC RBC Hgb Hct MCV MCH RDW Plt Count Lymph % (Auto) Tripp % (Auto) Eos % (Auto) Seg Neutrophils % Seg Neuts % (Manual) Lymphocytes % (Manual) Seg Neutrophils # Seg Neutrophils # Man Lymphocytes # (Manual) POC ABG pH ABG pH POC ABG pCO2 POC ABG pO2 ABG pO2 ABG HCO3 ABG Base Excess ABG Hemoglobin Oxyhemoglobin Sodium Potassium Chloride Carbon Dioxide BUN Creatinine Glucose POC Glucose 228 H 189 H 191 H Lactic Acid Calcium AST Alkaline Phosphatase Albumin Urine WBC (Auto) 02/04/17 02/04/17 02/04/17 05:45 11:20 17:20 WBC RBC Hgb Hct MCV MCH RDW Plt Count Lymph % (Auto) Tripp % (Auto) Eos % (Auto) Seg Neutrophils % Seg Neuts % (Manual) Lymphocytes % (Manual) Seg Neutrophils # Seg Neutrophils # Man Lymphocytes # (Manual) POC ABG pH ABG pH POC ABG pCO2 POC ABG pO2 ABG pO2 ABG HCO3 ABG Base Excess ABG Hemoglobin Oxyhemoglobin Sodium Potassium Chloride Carbon Dioxide BUN Creatinine Glucose POC Glucose 251 H 243 H 163 H Lactic Acid Calcium AST Alkaline Phosphatase Albumin Urine WBC (Auto) 02/05/17 02/05/17 02/05/17 00:17 05:38 12:38 WBC RBC Hgb Hct MCV MCH RDW Plt Count Lymph % (Auto) Tripp % (Auto) Eos % (Auto) Seg Neutrophils % Seg Neuts % (Manual) Lymphocytes % (Manual) Seg Neutrophils # Seg Neutrophils # Man Lymphocytes # (Manual) POC ABG pH ABG pH POC ABG pCO2 POC ABG pO2 ABG pO2 ABG HCO3 ABG Base Excess ABG Hemoglobin Oxyhemoglobin Sodium Potassium Chloride Carbon Dioxide BUN Creatinine Glucose POC Glucose 200 H 248 H 241 H Lactic Acid Calcium AST Alkaline Phosphatase Albumin Urine WBC (Auto) 02/05/17 02/05/17 02/06/17 16:29 23:56 05:30 WBC RBC Hgb Hct MCV MCH RDW Plt Count Lymph % (Auto) Tripp % (Auto) Eos % (Auto) Seg Neutrophils % Seg Neuts % (Manual) Lymphocytes % (Manual) Seg Neutrophils # Seg Neutrophils # Man Lymphocytes # (Manual) POC ABG pH ABG pH POC ABG pCO2 POC ABG pO2 ABG pO2 ABG HCO3 ABG Base Excess ABG Hemoglobin Oxyhemoglobin Sodium Potassium Chloride Carbon Dioxide BUN Creatinine Glucose POC Glucose 257 H 258 H 120 H Lactic Acid Calcium AST Alkaline Phosphatase Albumin Urine WBC (Auto) 02/06/17 02/06/17 02/06/17 11:50 17:11 23:50 WBC RBC Hgb Hct MCV MCH RDW Plt Count Lymph % (Auto) Tripp % (Auto) Eos % (Auto) Seg Neutrophils % Seg Neuts % (Manual) Lymphocytes % (Manual) Seg Neutrophils # Seg Neutrophils # Man Lymphocytes # (Manual) POC ABG pH ABG pH POC ABG pCO2 POC ABG pO2 ABG pO2 ABG HCO3 ABG Base Excess ABG Hemoglobin Oxyhemoglobin Sodium Potassium Chloride Carbon Dioxide BUN Creatinine Glucose POC Glucose 254 H 149 H 240 H Lactic Acid Calcium AST Alkaline Phosphatase Albumin Urine WBC (Auto) 02/07/17 05:22 WBC RBC Hgb Hct MCV MCH RDW Plt Count Lymph % (Auto) Tripp % (Auto) Eos % (Auto) Seg Neutrophils % Seg Neuts % (Manual) Lymphocytes % (Manual) Seg Neutrophils # Seg Neutrophils # Man Lymphocytes # (Manual) POC ABG pH ABG pH POC ABG pCO2 POC ABG pO2 ABG pO2 ABG HCO3 ABG Base Excess ABG Hemoglobin Oxyhemoglobin Sodium Potassium Chloride Carbon Dioxide BUN Creatinine Glucose POC Glucose 258 H Lactic Acid Calcium AST Alkaline Phosphatase Albumin Urine WBC (Auto) Chest x-ray: report reviewed, image reviewed
[2017-02-08] MEDS: NORMODYNE PO SCH ×3 (01:14→22:00)
[2017-02-08] MEDS: NOVOLOG SUB-Q SCH ×4 (01:16→18:34)
[2017-02-08] MEDS: SYNTHROID PO SCH (06:34)
[2017-02-08] MEDS: IMODIUM A-D PO PRN (09:36)
[2017-02-08] MEDS: PEPCID PO SCH ×2 (09:37→22:00)
[2017-02-08] MEDS: HEPARIN SUB-Q SCH ×2 (09:37→22:00)
[2017-02-08] MEDS: LEVEMIR (NF) SUB-Q SCH (09:38)
[2017-02-08] MEDS ORDERED: PANCREAZE DR 10,500 UNIT FEEDTUBE PRN (11:48)
[2017-02-08] MEDS ORDERED: SIMPLE SYRUP FEEDTUBE PRN ×2 (11:48)
[2017-02-08] MEDS ORDERED: SODIUM BICARBONATE FEEDTUBE PRN (11:48)
--- NOTE | 2017-02-08 12:50 | Progress Note ---
Assessment and Plan Imp: 1. Hypoglycemia/hypothermia -> suspect due to too much insulin 2. Hypothyroidism; doubt myxedema coma with normal free T4 3. Acute respiratory failure, hypoxia 4. UTI/SIRS 5. Metabolic encephalopathy Rec: 1. GI/DVT PPx/TFs 2. Reviewed chart; ethics note 01/18/17 recommended AND and "hospice"; trying to get guardianship to sign necessary orders for this (however, I was told they are not willing to sign for withdrawal of ventilator) 3. Comfort care, no escalation of care; would not check any further labs, etc. 4. Poor prognosis Unable to locate family. Subjective Date of service: 02/08/17 Principal diagnosis: Acute respiratory failure,encephalopathy Interval history: No events. On vent. Unresponsive. Active Medications Acetaminophen (Tylenol) 650 mg FEEDTUBE Q6H PRN PRN Reason: Non Cardiac Pain Or Temp>101 Last Admin: 01/29/17 21:56 Dose: 650 mg Lipase/Protease/Amylase (Pancreaze Dr 10,500 Unit) 1 each FEEDTUBE PRN PRN PRN Reason: For Clogged Feeding Tube Dextrose (D50w (25gm) Vial) 50 gm IV PRN PRN PRN Reason: Hypoglycemia Famotidine (Pepcid) 20 mg PO BID [facility] Last Admin: 02/08/17 09:37 Dose: 20 mg Heparin Sodium (Porcine) (Heparin) 5,000 unit SUB-Q Q12HR [facility] Last Admin: 02/08/17 09:37 Dose: 5,000 unit Hydralazine HCl (Apresoline) 10 mg IV Q4HR PRN PRN Reason: Hypertension Last Admin: 02/02/17 06:14 Dose: 10 mg Hydrophilic Ointment (Vaseline Lip Therapy) 1 applic TP Q2HR PRN PRN Reason: Dry Lips Insulin Aspart (Novolog) 0 units SUB-Q Q6HR [facility] PRN Reason: Protocol Last Admin: 02/08/17 12:10 Dose: Not Given Insulin Detemir (Levemir) 10 units SUB-Q DAILY [facility] Last Admin: 02/08/17 09:38 Dose: 10 units Labetalol HCl (Normodyne) 200 mg PO BID [facility] Last Admin: 02/08/17 09:36 Dose: 200 mg Levothyroxine Sodium (Synthroid) 100 mcg PO DAILY@0600 [facility] Last Admin: 02/08/17 06:34 Dose: 100 mcg Loperamide HCl (Imodium A-D) 2 mg PO Q2H PRN PRN Reason: Diarrhea Last Admin: 02/08/17 09:36 Dose: 2 mg Multi-Ingred Cream/Lotion/Oil/Oint (Artificial Tears Ophth Oint) 1 applic OU Q4HR PRN PRN Reason: Dry Eye(s) Simple Syrup (Simple Syrup) 15 ml FEEDTUBE PRN PRN PRN Reason: Hypoglycemia Last Admin: 01/31/17 23:19 Dose: 15 ml Simple Syrup (Simple Syrup) 30 ml FEEDTUBE PRN PRN PRN Reason: Hypoglycemia Sodium Bicarbonate (Sodium Bicarbonate) 325 mg FEEDTUBE PRN PRN PRN Reason: For Clogged Feeding Tube Objective Vital Signs - 12hr 02/08/17 02/08/17 02/08/17 01:00 01:14 02:00 Temperature Pulse Rate 90 86 87 Respiratory 12 16 Rate Blood Pressure 131/84 117/67 118/78 O2 Sat by Pulse 98 98 Oximetry 02/08/17 02/08/17 02/08/17 03:00 03:34 04:00 Temperature 97.7 F Pulse Rate 84 88 Respiratory 12 14 Rate Blood Pressure 121/74 132/81 O2 Sat by Pulse 99 98 Oximetry 02/08/17 02/08/17 02/08/17 05:00 06:00 07:00 Temperature Pulse Rate 77 74 71 Respiratory 14 13 12 Rate Blood Pressure 134/80 122/76 126/73 O2 Sat by Pulse Oximetry 02/08/17 02/08/17 02/08/17 08:00 08:10 09:00 Temperature 99.1 F Pulse Rate 77 76 80 Respiratory 14 17 Rate Blood Pressure 135/79 135/79 128/75 O2 Sat by Pulse 100 99 Oximetry 02/08/17 02/08/17 02/08/17 09:36 10:00 11:00 Temperature Pulse Rate 79 78 74 Respiratory 20 14 Rate Blood Pressure 122/72 120/75 122/73 O2 Sat by Pulse 99 100 Oximetry 02/08/17 12:00 Temperature 98.6 F Pulse Rate 78 Respiratory 17 Rate Blood Pressure 134/80 O2 Sat by Pulse 100 Oximetry Constitutional: comatose, other (orally intubated, on vent) Eyes: non-icteric ENT: oropharynx moist Neck: supple Effort: normal Ascultation: Bilateral: clear Cardiovascular: regular rate and rhythm (no mrg) Gastrointestinal: normoactive bowel sounds, soft, non-tender, non-distended Integumentary: normal Extremities: no cyanosis, no edema, pink and warm Neurologic: other (unresponsive, flaccid extremities) Psychiatric: other (unable to obtain) CBC and BMP: 02/02/17 11:46 02/02/17 11:46 ABG, PT/INR, D-dimer: ABG POC ABG pH 7.442 (7.35-7.45) 01/31/17 18:55 ABG pH 7.420 pH Units (7.350-7.450) 01/17/17 04:35 POC ABG pCO2 32.8 (35-45) L 01/31/17 18:55 ABG pCO2 34.5 mm Hg 01/17/17 04:35 POC ABG pO2 82 (80-105) 01/31/17 18:55 ABG pO2 160.3 mm Hg (80.0-90.0) H 01/17/17 04:35 POC ABG HCO3 22.4 01/31/17 18:55 POC ABG Total CO2 23 01/31/17 18:55 POC ABG O2 Sat 97 01/31/17 18:55 ABG O2 Saturation 99.0 % (95.0-99.0) 01/17/17 04:35 PT/INR, D-dimer PT 14.1 Sec. (12.2-14.9) 01/17/17 04:10 INR 1.04 (0.87-1.13) 01/17/17 04:10 Abnormal lab findings: Abnormal Labs 01/09/17 01/09/17 01/09/17 12:49 13:13 14:21 WBC RBC Hgb Hct MCV MCH RDW Plt Count Lymph % (Auto) [place] % (Auto) Eos % (Auto) Seg Neutrophils % Seg Neuts % (Manual) Lymphocytes % (Manual) Seg Neutrophils # Seg Neutrophils # Man Lymphocytes # (Manual) POC ABG pH ABG pH POC ABG pCO2 POC ABG pO2 ABG pO2 ABG HCO3 ABG Base Excess ABG Hemoglobin Oxyhemoglobin Sodium Potassium Chloride Carbon Dioxide BUN Creatinine Glucose POC Glucose < 40 L 128 H 65 L Lactic Acid Calcium AST Alkaline Phosphatase Albumin Urine WBC (Auto) 01/09/17 01/09/17 01/09/17 15:09 16:28 17:14 WBC RBC Hgb Hct MCV MCH RDW Plt Count Lymph % (Auto) [place] % (Auto) Eos % (Auto) Seg Neutrophils % Seg Neuts % (Manual) Lymphocytes % (Manual) Seg Neutrophils # Seg Neutrophils # Man Lymphocytes # (Manual) POC ABG pH ABG pH POC ABG pCO2 POC ABG pO2 ABG pO2 ABG HCO3 ABG Base Excess ABG Hemoglobin Oxyhemoglobin Sodium Potassium Chloride Carbon Dioxide BUN Creatinine Glucose POC Glucose 120 H 44 L 112 H Lactic Acid Calcium AST Alkaline Phosphatase Albumin Urine WBC (Auto) 01/10/17 01/10/17 01/10/17 04:30 04:30 05:41 WBC 24.1 H RBC 3.38 L Hgb 8.5 L Hct 26.0 L MCV 77 L MCH 25 L RDW 17.9 H Plt Count 474 H Lymph % (Auto) [place] % (Auto) Eos % (Auto) Seg Neutrophils % Seg Neuts % (Manual) 88.0 H Lymphocytes % (Manual) 4.0 L Seg Neutrophils # Seg Neutrophils # Man 21.2 H Lymphocytes # (Manual) 1.0 L POC ABG pH ABG pH POC ABG pCO2 POC ABG pO2 ABG pO2 ABG HCO3 ABG Base Excess ABG Hemoglobin Oxyhemoglobin Sodium Potassium Chloride Carbon Dioxide 17 L BUN 27 H Creatinine Glucose POC Glucose 68 L Lactic Acid Calcium 7.5 L AST Alkaline Phosphatase Albumin Urine WBC (Auto) 01/10/17 01/10/17 01/10/17 05:45 07:47 10:50 WBC RBC Hgb Hct MCV MCH RDW Plt Count Lymph % (Auto) [place] % (Auto) Eos % (Auto) Seg Neutrophils % Seg Neuts % (Manual) Lymphocytes % (Manual) Seg Neutrophils # Seg Neutrophils # Man Lymphocytes # (Manual) POC ABG pH ABG pH POC ABG pCO2 26.6 L POC ABG pO2 207 H ABG pO2 ABG HCO3 ABG Base Excess ABG Hemoglobin Oxyhemoglobin Sodium Potassium Chloride Carbon Dioxide BUN Creatinine Glucose POC Glucose 148 H 165 H Lactic Acid Calcium AST Alkaline Phosphatase Albumin Urine WBC (Auto) 01/10/17 01/10/17 01/10/17 13:41 20:20 21:39 WBC RBC Hgb Hct MCV MCH RDW Plt Count Lymph % (Auto) [place] % (Auto) Eos % (Auto) Seg Neutrophils % Seg Neuts % (Manual) Lymphocytes % (Manual) Seg Neutrophils # Seg Neutrophils # Man Lymphocytes # (Manual) POC ABG pH ABG pH POC ABG pCO2 POC ABG pO2 ABG pO2 ABG HCO3 ABG Base Excess ABG Hemoglobin Oxyhemoglobin Sodium Potassium Chloride Carbon Dioxide BUN Creatinine Glucose POC Glucose 114 H 150 H 175 H Lactic Acid Calcium AST Alkaline Phosphatase Albumin Urine WBC (Auto) 01/10/17 01/11/17 01/11/17 23:24 00:19 04:06 WBC RBC Hgb Hct MCV MCH RDW Plt Count Lymph % (Auto) [place] % (Auto) Eos % (Auto) Seg Neutrophils % Seg Neuts % (Manual) Lymphocytes % (Manual) Seg Neutrophils # Seg Neutrophils # Man Lymphocytes # (Manual) POC ABG pH 7.463 H ABG pH POC ABG pCO2 26.2 L POC ABG pO2 185 H ABG pO2 ABG HCO3 ABG Base Excess ABG Hemoglobin Oxyhemoglobin Sodium Potassium Chloride Carbon Dioxide BUN Creatinine Glucose POC Glucose 155 H 163 H Lactic Acid Calcium AST Alkaline Phosphatase Albumin Urine WBC (Auto) 01/11/17 01/11/17 01/11/17 05:20 05:20 06:21 WBC 15.2 H RBC 3.40 L Hgb 8.9 L Hct 26.3 L MCV 78 L MCH 26 L RDW 18.6 H Plt Count 462 H Lymph % (Auto) 13.2 L [place] % (Auto) Eos % (Auto) Seg Neutrophils % 80.8 H Seg Neuts % (Manual) Lymphocytes % (Manual) Seg Neutrophils # 12.3 H Seg Neutrophils # Man Lymphocytes # (Manual) POC ABG pH ABG pH POC ABG pCO2 POC ABG pO2 ABG pO2 ABG HCO3 ABG Base Excess ABG Hemoglobin Oxyhemoglobin Sodium Potassium 3.4 L Chloride 111.5 H Carbon Dioxide 17 L BUN Creatinine Glucose 147 H POC Glucose 139 H Lactic Acid Calcium 8.0 L AST Alkaline Phosphatase Albumin Urine WBC (Auto) 01/11/17 01/11/17 01/11/17 07:57 11:46 16:50 WBC RBC Hgb Hct MCV MCH RDW Plt Count Lymph % (Auto) [place] % (Auto) Eos % (Auto) Seg Neutrophils % Seg Neuts % (Manual) Lymphocytes % (Manual) Seg Neutrophils # Seg Neutrophils # Man Lymphocytes # (Manual) POC ABG pH ABG pH POC ABG pCO2 POC ABG pO2 ABG pO2 ABG HCO3 ABG Base Excess ABG Hemoglobin Oxyhemoglobin Sodium Potassium Chloride Carbon Dioxide BUN Creatinine Glucose POC Glucose 188 H 199 H 235 H Lactic Acid Calcium AST Alkaline Phosphatase Albumin Urine WBC (Auto) 01/11/17 01/12/17 01/12/17 23:15 05:02 06:56 WBC RBC Hgb Hct MCV MCH RDW Plt Count Lymph % (Auto) [place] % (Auto) Eos % (Auto) Seg Neutrophils % Seg Neuts % (Manual) Lymphocytes % (Manual) Seg Neutrophils # Seg Neutrophils # Man Lymphocytes # (Manual) POC ABG pH ABG pH POC ABG pCO2 28.0 L POC ABG pO2 178 H ABG pO2 ABG HCO3 ABG Base Excess ABG Hemoglobin Oxyhemoglobin Sodium Potassium Chloride Carbon Dioxide BUN Creatinine Glucose POC Glucose 155 H 119 H Lactic Acid Calcium AST Alkaline Phosphatase Albumin Urine WBC (Auto) 01/12/17 01/13/17 01/13/17 14:50 03:37 03:37 WBC RBC 3.61 L Hgb 9.3 L Hct 28.0 L MCV 78 L MCH 26 L RDW 18.2 H Plt Count Lymph % (Auto) [place] % (Auto) Eos % (Auto) Seg Neutrophils % Seg Neuts % (Manual) Lymphocytes % (Manual) Seg Neutrophils # Seg Neutrophils # Man Lymphocytes # (Manual) POC ABG pH ABG pH POC ABG pCO2 POC ABG pO2 ABG pO2 ABG HCO3 ABG Base Excess ABG Hemoglobin Oxyhemoglobin Sodium Potassium Chloride 112.4 H Carbon Dioxide 19 L BUN Creatinine Glucose 118 H POC Glucose 164 H Lactic Acid Calcium 8.0 L AST Alkaline Phosphatase Albumin Urine WBC (Auto) 01/13/17 01/13/17 01/13/17 04:26 06:15 11:50 WBC RBC Hgb Hct MCV MCH RDW Plt Count Lymph % (Auto) [place] % (Auto) Eos % (Auto) Seg Neutrophils % Seg Neuts % (Manual) Lymphocytes % (Manual) Seg Neutrophils # Seg Neutrophils # Man Lymphocytes # (Manual) POC ABG pH 7.485 H ABG pH POC ABG pCO2 25.4 L POC ABG pO2 73 L ABG pO2 ABG HCO3 ABG Base Excess ABG Hemoglobin Oxyhemoglobin Sodium Potassium Chloride Carbon Dioxide BUN Creatinine Glucose POC Glucose 116 H 171 H Lactic Acid Calcium AST Alkaline Phosphatase Albumin Urine WBC (Auto) 01/13/17 01/14/17 01/14/17 17:31 00:02 04:50 WBC RBC 3.32 L Hgb 8.5 L Hct 26.1 L MCV 79 L MCH 26 L RDW 18.2 H Plt Count Lymph % (Auto) [place] % (Auto) 9.0 H Eos % (Auto) Seg Neutrophils % Seg Neuts % (Manual) Lymphocytes % (Manual) Seg Neutrophils # Seg Neutrophils # Man Lymphocytes # (Manual) POC ABG pH ABG pH POC ABG pCO2 POC ABG pO2 ABG pO2 ABG HCO3 ABG Base Excess ABG Hemoglobin Oxyhemoglobin Sodium Potassium Chloride Carbon Dioxide BUN Creatinine Glucose POC Glucose 203 H 157 H Lactic Acid Calcium AST Alkaline Phosphatase Albumin Urine WBC (Auto) 01/14/17 01/14/17 01/14/17 04:50 05:10 11:27 WBC RBC Hgb Hct MCV MCH RDW Plt Count Lymph % (Auto) [place] % (Auto) Eos % (Auto) Seg Neutrophils % Seg Neuts % (Manual) Lymphocytes % (Manual) Seg Neutrophils # Seg Neutrophils # Man Lymphocytes # (Manual) POC ABG pH ABG pH POC ABG pCO2 POC ABG pO2 ABG pO2 ABG HCO3 ABG Base Excess ABG Hemoglobin Oxyhemoglobin Sodium Potassium Chloride 112.5 H Carbon Dioxide BUN Creatinine Glucose 149 H POC Glucose 176 H 147 H Lactic Acid Calcium 8.1 L AST Alkaline Phosphatase Albumin Urine WBC (Auto) 01/14/17 01/14/17 01/15/17 14:07 16:52 00:04 WBC RBC Hgb Hct MCV MCH RDW Plt Count Lymph % (Auto) [place] % (Auto) Eos % (Auto) Seg Neutrophils % Seg Neuts % (Manual) Lymphocytes % (Manual) Seg Neutrophils # Seg Neutrophils # Man Lymphocytes # (Manual) POC ABG pH ABG pH POC ABG pCO2 POC ABG pO2 ABG pO2 ABG HCO3 ABG Base Excess ABG Hemoglobin Oxyhemoglobin Sodium Potassium Chloride Carbon Dioxide BUN Creatinine Glucose POC Glucose 131 H 193 H Lactic Acid Calcium AST Alkaline Phosphatase Albumin Urine WBC (Auto) 53.0 H 01/15/17 01/15/17 01/15/17 05:26 11:49 17:47 WBC RBC Hgb Hct MCV MCH RDW Plt Count Lymph % (Auto) [place] % (Auto) Eos % (Auto) Seg Neutrophils % Seg Neuts % (Manual) Lymphocytes % (Manual) Seg Neutrophils # Seg Neutrophils # Man Lymphocytes # (Manual) POC ABG pH ABG pH POC ABG pCO2 POC ABG pO2 ABG pO2 ABG HCO3 ABG Base Excess ABG Hemoglobin Oxyhemoglobin Sodium Potassium Chloride Carbon Dioxide BUN Creatinine Glucose POC Glucose 215 H 121 H 211 H Lactic Acid Calcium AST Alkaline Phosphatase Albumin Urine WBC (Auto) 01/15/17 01/16/17 01/16/17 21:33 04:30 05:28 WBC RBC Hgb Hct MCV MCH RDW Plt Count Lymph % (Auto) [place] % (Auto) Eos % (Auto) Seg Neutrophils % Seg Neuts % (Manual) Lymphocytes % (Manual) Seg Neutrophils # Seg Neutrophils # Man Lymphocytes # (Manual) POC ABG pH ABG pH 7.457 H POC ABG pCO2 POC ABG pO2 ABG pO2 55.1 L ABG HCO3 19.4 L ABG Base Excess -4.0 L ABG Hemoglobin 6.8 L Oxyhemoglobin 94.9 L Sodium Potassium Chloride Carbon Dioxide BUN Creatinine Glucose POC Glucose 275 H 271 H Lactic Acid Calcium AST Alkaline Phosphatase Albumin Urine WBC (Auto) 01/16/17 01/16/17 01/17/17 13:45 21:39 04:10 WBC 4.4 L RBC 2.98 L Hgb 7.7 L Hct 23.3 L MCV 78 L MCH 26 L RDW 18.1 H Plt Count Lymph % (Auto) [place] % (Auto) Eos % (Auto) Seg Neutrophils % Seg Neuts % (Manual) Lymphocytes % (Manual) Seg Neutrophils # Seg Neutrophils # Man Lymphocytes # (Manual) POC ABG pH ABG pH POC ABG pCO2 POC ABG pO2 ABG pO2 ABG HCO3 ABG Base Excess ABG Hemoglobin Oxyhemoglobin Sodium Potassium Chloride Carbon Dioxide BUN Creatinine Glucose POC Glucose 236 H 258 H Lactic Acid Calcium AST Alkaline Phosphatase Albumin Urine WBC (Auto) 01/17/17 01/17/17 01/17/17 04:10 04:35 12:23 WBC RBC Hgb Hct MCV MCH RDW Plt Count Lymph % (Auto) [place] % (Auto) Eos % (Auto) Seg Neutrophils % Seg Neuts % (Manual) Lymphocytes % (Manual) Seg Neutrophils # Seg Neutrophils # Man Lymphocytes # (Manual) POC ABG pH ABG pH POC ABG pCO2 POC ABG pO2 ABG pO2 160.3 H ABG HCO3 ABG Base Excess -2.3 L ABG Hemoglobin 7.9 L Oxyhemoglobin Sodium Potassium 3.3 L Chloride 108.7 H Carbon Dioxide 20 L BUN 8 L Creatinine Glucose 202 H POC Glucose 321 H Lactic Acid Calcium 7.6 L AST Alkaline Phosphatase Albumin Urine WBC (Auto) 01/17/17 01/18/17 01/18/17 16:01 05:07 12:09 WBC RBC Hgb Hct MCV MCH RDW Plt Count Lymph % (Auto) [place] % (Auto) Eos % (Auto) Seg Neutrophils % Seg Neuts % (Manual) Lymphocytes % (Manual) Seg Neutrophils # Seg Neutrophils # Man Lymphocytes # (Manual) POC ABG pH ABG pH POC ABG pCO2 POC ABG pO2 ABG pO2 ABG HCO3 ABG Base Excess ABG Hemoglobin Oxyhemoglobin Sodium Potassium Chloride Carbon Dioxide BUN Creatinine Glucose POC Glucose 239 H 155 H 203 H Lactic Acid Calcium AST Alkaline Phosphatase Albumin Urine WBC (Auto) 01/18/17 01/18/17 01/19/17 17:54 23:43 04:28 WBC RBC Hgb Hct MCV MCH RDW Plt Count Lymph % (Auto) [place] % (Auto) Eos % (Auto) Seg Neutrophils % Seg Neuts % (Manual) Lymphocytes % (Manual) Seg Neutrophils # Seg Neutrophils # Man Lymphocytes # (Manual) POC ABG pH ABG pH POC ABG pCO2 POC ABG pO2 ABG pO2 ABG HCO3 ABG Base Excess ABG Hemoglobin Oxyhemoglobin Sodium Potassium Chloride Carbon Dioxide BUN Creatinine Glucose POC Glucose 132 H 125 H 182 H Lactic Acid Calcium AST Alkaline Phosphatase Albumin Urine WBC (Auto) 01/19/17 01/19/17 01/20/17 12:11 17:23 00:12 WBC RBC Hgb Hct MCV MCH RDW Plt Count Lymph % (Auto) [place] % (Auto) Eos % (Auto) Seg Neutrophils % Seg Neuts % (Manual) Lymphocytes % (Manual) Seg Neutrophils # Seg Neutrophils # Man Lymphocytes # (Manual) POC ABG pH ABG pH POC ABG pCO2 POC ABG pO2 ABG pO2 ABG HCO3 ABG Base Excess ABG Hemoglobin Oxyhemoglobin Sodium Potassium Chloride Carbon Dioxide BUN Creatinine Glucose POC Glucose 153 H 66 L 139 H Lactic Acid Calcium AST Alkaline Phosphatase Albumin Urine WBC (Auto) 01/20/17 01/20/17 01/20/17 05:44 11:48 17:42 WBC RBC Hgb Hct MCV MCH RDW Plt Count Lymph % (Auto) [place] % (Auto) Eos % (Auto) Seg Neutrophils % Seg Neuts % (Manual) Lymphocytes % (Manual) Seg Neutrophils # Seg Neutrophils # Man Lymphocytes # (Manual) POC ABG pH ABG pH POC ABG pCO2 POC ABG pO2 ABG pO2 ABG HCO3 ABG Base Excess ABG Hemoglobin Oxyhemoglobin Sodium Potassium Chloride Carbon Dioxide BUN Creatinine Glucose POC Glucose 176 H 218 H 132 H Lactic Acid Calcium AST Alkaline Phosphatase Albumin Urine WBC (Auto) 01/20/17 01/21/17 01/21/17 23:43 05:34 11:17 WBC RBC Hgb Hct MCV MCH RDW Plt Count Lymph % (Auto) [place] % (Auto) Eos % (Auto) Seg Neutrophils % Seg Neuts % (Manual) Lymphocytes % (Manual) Seg Neutrophils # Seg Neutrophils # Man Lymphocytes # (Manual) POC ABG pH ABG pH POC ABG pCO2 POC ABG pO2 ABG pO2 ABG HCO3 ABG Base Excess ABG Hemoglobin Oxyhemoglobin Sodium Potassium Chloride Carbon Dioxide BUN Creatinine Glucose POC Glucose 178 H 106 H 213 H Lactic Acid Calcium AST Alkaline Phosphatase Albumin Urine WBC (Auto) 01/21/17 01/22/17 01/22/17 23:37 04:00 04:00 WBC RBC 3.26 L Hgb 8.3 L Hct 25.5 L MCV 78 L MCH 25 L RDW 17.9 H Plt Count Lymph % (Auto) [place] % (Auto) 7.9 H Eos % (Auto) 6.2 H Seg Neutrophils % Seg Neuts % (Manual) Lymphocytes % (Manual) Seg Neutrophils # Seg Neutrophils # Man Lymphocytes # (Manual) POC ABG pH ABG pH POC ABG pCO2 POC ABG pO2 ABG pO2 ABG HCO3 ABG Base Excess ABG Hemoglobin Oxyhemoglobin Sodium Potassium Chloride 95.5 L Carbon Dioxide 31 H D BUN Creatinine Glucose 134 H POC Glucose 140 H Lactic Acid Calcium AST 44 H Alkaline Phosphatase 379 H Albumin 2.7 L Urine WBC (Auto) 01/22/17 01/22/17 01/22/17 04:58 12:12 18:12 WBC RBC Hgb Hct MCV MCH RDW Plt Count Lymph % (Auto) [place] % (Auto) Eos % (Auto) Seg Neutrophils % Seg Neuts % (Manual) Lymphocytes % (Manual) Seg Neutrophils # Seg Neutrophils # Man Lymphocytes # (Manual) POC ABG pH ABG pH POC ABG pCO2 POC ABG pO2 ABG pO2 ABG HCO3 ABG Base Excess ABG Hemoglobin Oxyhemoglobin Sodium Potassium Chloride Carbon Dioxide BUN Creatinine Glucose POC Glucose 146 H 255 H 182 H Lactic Acid Calcium AST Alkaline Phosphatase Albumin Urine WBC (Auto) 01/22/17 01/23/17 01/23/17 23:39 04:43 12:12 WBC RBC Hgb Hct MCV MCH RDW Plt Count Lymph % (Auto) [place] % (Auto) Eos % (Auto) Seg Neutrophils % Seg Neuts % (Manual) Lymphocytes % (Manual) Seg Neutrophils # Seg Neutrophils # Man Lymphocytes # (Manual) POC ABG pH ABG pH POC ABG pCO2 POC ABG pO2 ABG pO2 ABG HCO3 ABG Base Excess ABG Hemoglobin Oxyhemoglobin Sodium Potassium Chloride Carbon Dioxide BUN Creatinine Glucose POC Glucose 134 H 218 H 128 H Lactic Acid Calcium AST Alkaline Phosphatase Albumin Urine WBC (Auto) 01/23/17 01/24/17 01/24/17 17:36 00:08 05:16 WBC RBC Hgb Hct MCV MCH RDW Plt Count Lymph % (Auto) [place] % (Auto) Eos % (Auto) Seg Neutrophils % Seg Neuts % (Manual) Lymphocytes % (Manual) Seg Neutrophils # Seg Neutrophils # Man Lymphocytes # (Manual) POC ABG pH ABG pH POC ABG pCO2 POC ABG pO2 ABG pO2 ABG HCO3 ABG Base Excess ABG Hemoglobin Oxyhemoglobin Sodium Potassium Chloride Carbon Dioxide BUN Creatinine Glucose POC Glucose 156 H 129 H 169 H Lactic Acid Calcium AST Alkaline Phosphatase Albumin Urine WBC (Auto) 01/24/17 01/24/17 01/24/17 11:40 17:43 23:23 WBC RBC Hgb Hct MCV MCH RDW Plt Count Lymph % (Auto) [place] % (Auto) Eos % (Auto) Seg Neutrophils % Seg Neuts % (Manual) Lymphocytes % (Manual) Seg Neutrophils # Seg Neutrophils # Man Lymphocytes # (Manual) POC ABG pH ABG pH POC ABG pCO2 POC ABG pO2 ABG pO2 ABG HCO3 ABG Base Excess ABG Hemoglobin Oxyhemoglobin Sodium Potassium Chloride Carbon Dioxide BUN Creatinine Glucose POC Glucose 187 H 215 H 222 H Lactic Acid Calcium AST Alkaline Phosphatase Albumin Urine WBC (Auto) 01/25/17 01/25/17 01/25/17 04:56 11:52 17:37 WBC RBC Hgb Hct MCV MCH RDW Plt Count Lymph % (Auto) [place] % (Auto) Eos % (Auto) Seg Neutrophils % Seg Neuts % (Manual) Lymphocytes % (Manual) Seg Neutrophils # Seg Neutrophils # Man Lymphocytes # (Manual) POC ABG pH ABG pH POC ABG pCO2 POC ABG pO2 ABG pO2 ABG HCO3 ABG Base Excess ABG Hemoglobin Oxyhemoglobin Sodium Potassium Chloride Carbon Dioxide BUN Creatinine Glucose POC Glucose 210 H 284 H 218 H Lactic Acid Calcium AST Alkaline Phosphatase Albumin Urine WBC (Auto) 01/26/17 01/26/17 01/26/17 00:02 05:33 12:17 WBC RBC Hgb Hct MCV MCH RDW Plt Count Lymph % (Auto) [place] % (Auto) Eos % (Auto) Seg Neutrophils % Seg Neuts % (Manual) Lymphocytes % (Manual) Seg Neutrophils # Seg Neutrophils # Man Lymphocytes # (Manual) POC ABG pH ABG pH POC ABG pCO2 POC ABG pO2 ABG pO2 ABG HCO3 ABG Base Excess ABG Hemoglobin Oxyhemoglobin Sodium Potassium Chloride Carbon Dioxide BUN Creatinine Glucose POC Glucose 192 H 199 H 227 H Lactic Acid Calcium AST Alkaline Phosphatase Albumin Urine WBC (Auto) 01/26/17 01/26/17 01/27/17 17:50 23:57 05:31 WBC RBC Hgb Hct MCV MCH RDW Plt Count Lymph % (Auto) [place] % (Auto) Eos % (Auto) Seg Neutrophils % Seg Neuts % (Manual) Lymphocytes % (Manual) Seg Neutrophils # Seg Neutrophils # Man Lymphocytes # (Manual) POC ABG pH ABG pH POC ABG pCO2 POC ABG pO2 ABG pO2 ABG HCO3 ABG Base Excess ABG Hemoglobin Oxyhemoglobin Sodium Potassium Chloride Carbon Dioxide BUN Creatinine Glucose POC Glucose 229 H 186 H 285 H Lactic Acid Calcium AST Alkaline Phosphatase Albumin Urine WBC (Auto) 01/27/17 01/27/17 01/27/17 11:42 17:47 23:58 WBC RBC Hgb Hct MCV MCH RDW Plt Count Lymph % (Auto) [place] % (Auto) Eos % (Auto) Seg Neutrophils % Seg Neuts % (Manual) Lymphocytes % (Manual) Seg Neutrophils # Seg Neutrophils # Man Lymphocytes # (Manual) POC ABG pH ABG pH POC ABG pCO2 POC ABG pO2 ABG pO2 ABG HCO3 ABG Base Excess ABG Hemoglobin Oxyhemoglobin Sodium Potassium Chloride Carbon Dioxide BUN Creatinine Glucose POC Glucose 260 H 329 H 225 H Lactic Acid Calcium AST Alkaline Phosphatase Albumin Urine WBC (Auto) 01/27/17 01/27/17 01/28/17 Unknown Unknown 03:44 WBC 12.1 H RBC 3.28 L 3.14 L Hgb 8.5 L 8.2 L Hct 25.5 L 24.1 L MCV 78 L 77 L MCH 26 L 26 L RDW 16.8 H 16.9 H Plt Count 601 H 567 H Lymph % (Auto) [place] % (Auto) Eos % (Auto) Seg Neutrophils % Seg Neuts % (Manual) Lymphocytes % (Manual) Seg Neutrophils # Seg Neutrophils # Man Lymphocytes # (Manual) POC ABG pH ABG pH POC ABG pCO2 POC ABG pO2 ABG pO2 ABG HCO3 ABG Base Excess ABG Hemoglobin Oxyhemoglobin Sodium 128 L Potassium 5.4 H Chloride 87.5 L Carbon Dioxide BUN 44 H Creatinine Glucose 250 H POC Glucose Lactic Acid Calcium AST Alkaline Phosphatase Albumin Urine WBC (Auto) 01/28/17 01/28/17 01/28/17 03:44 11:43 16:47 WBC RBC Hgb Hct MCV MCH RDW Plt Count Lymph % (Auto) [place] % (Auto) Eos % (Auto) Seg Neutrophils % Seg Neuts % (Manual) Lymphocytes % (Manual) Seg Neutrophils # Seg Neutrophils # Man Lymphocytes # (Manual) POC ABG pH ABG pH POC ABG pCO2 POC ABG pO2 ABG pO2 ABG HCO3 ABG Base Excess ABG Hemoglobin Oxyhemoglobin Sodium Potassium Chloride Carbon Dioxide BUN 42 H Creatinine Glucose 128 H POC Glucose 351 H 249 H Lactic Acid Calcium AST Alkaline Phosphatase Albumin Urine WBC (Auto) 01/28/17 01/29/17 01/29/17 17:52 05:25 05:25 WBC 13.6 H RBC 3.25 L Hgb 8.3 L Hct 25.1 L MCV 77 L MCH 26 L RDW 16.8 H Plt Count 514 H Lymph % (Auto) [place] % (Auto) Eos % (Auto) Seg Neutrophils % Seg Neuts % (Manual) Lymphocytes % (Manual) Seg Neutrophils # Seg Neutrophils # Man Lymphocytes # (Manual) POC ABG pH ABG pH POC ABG pCO2 POC ABG pO2 ABG pO2 ABG HCO3 ABG Base Excess ABG Hemoglobin Oxyhemoglobin Sodium Potassium Chloride 97.8 L Carbon Dioxide BUN 34 H Creatinine Glucose 222 H POC Glucose Lactic Acid Calcium AST Alkaline Phosphatase Albumin Urine WBC (Auto) > 182.0 H 01/29/17 01/29/17 01/29/17 09:32 11:56 18:11 WBC RBC Hgb Hct MCV MCH RDW Plt Count Lymph % (Auto) [place] % (Auto) Eos % (Auto) Seg Neutrophils % Seg Neuts % (Manual) Lymphocytes % (Manual) Seg Neutrophils # Seg Neutrophils # Man Lymphocytes # (Manual) POC ABG pH ABG pH POC ABG pCO2 POC ABG pO2 ABG pO2 ABG HCO3 ABG Base Excess ABG Hemoglobin Oxyhemoglobin Sodium Potassium Chloride Carbon Dioxide BUN Creatinine Glucose POC Glucose 261 H 215 H Lactic Acid 2.50 H* Calcium AST Alkaline Phosphatase Albumin Urine WBC (Auto) 01/29/17 01/30/17 01/30/17 23:55 05:31 05:31 WBC 15.2 H RBC 3.09 L Hgb 7.9 L Hct 23.9 L MCV 77 L MCH 26 L RDW 16.9 H Plt Count 569 H Lymph % (Auto) [place] % (Auto) Eos % (Auto) Seg Neutrophils % Seg Neuts % (Manual) Lymphocytes % (Manual) Seg Neutrophils # Seg Neutrophils # Man Lymphocytes # (Manual) POC ABG pH ABG pH POC ABG pCO2 POC ABG pO2 ABG pO2 ABG HCO3 ABG Base Excess ABG Hemoglobin Oxyhemoglobin Sodium Potassium Chloride Carbon Dioxide BUN 24 H Creatinine Glucose 235 H POC Glucose 176 H Lactic Acid Calcium AST Alkaline Phosphatase Albumin Urine WBC (Auto) 01/30/17 01/30/17 01/30/17 05:34 11:38 17:58 WBC RBC Hgb Hct MCV MCH RDW Plt Count Lymph % (Auto) [place] % (Auto) Eos % (Auto) Seg Neutrophils % Seg Neuts % (Manual) Lymphocytes % (Manual) Seg Neutrophils # Seg Neutrophils # Man Lymphocytes # (Manual) POC ABG pH ABG pH POC ABG pCO2 POC ABG pO2 ABG pO2 ABG HCO3 ABG Base Excess ABG Hemoglobin Oxyhemoglobin Sodium Potassium Chloride Carbon Dioxide BUN Creatinine Glucose POC Glucose 243 H 298 H 208 H Lactic Acid Calcium AST Alkaline Phosphatase Albumin Urine WBC (Auto) 01/30/17 01/31/17 01/31/17 23:29 04:39 04:39 WBC 11.4 H RBC 3.22 L Hgb 8.2 L Hct 24.9 L MCV 78 L MCH 25 L RDW 17.2 H Plt Count 576 H Lymph % (Auto) [place] % (Auto) Eos % (Auto) Seg Neutrophils % Seg Neuts % (Manual) Lymphocytes % (Manual) Seg Neutrophils # Seg Neutrophils # Man Lymphocytes # (Manual) POC ABG pH ABG pH POC ABG pCO2 POC ABG pO2 ABG pO2 ABG HCO3 ABG Base Excess ABG Hemoglobin Oxyhemoglobin Sodium Potassium Chloride Carbon Dioxide BUN Creatinine 0.7 L Glucose 223 H POC Glucose 245 H Lactic Acid Calcium AST Alkaline Phosphatase Albumin Urine WBC (Auto) 01/31/17 01/31/17 01/31/17 05:57 12:23 17:41 WBC RBC Hgb Hct MCV MCH RDW Plt Count Lymph % (Auto) [place] % (Auto) Eos % (Auto) Seg Neutrophils % Seg Neuts % (Manual) Lymphocytes % (Manual) Seg Neutrophils # Seg Neutrophils # Man Lymphocytes # (Manual) POC ABG pH ABG pH POC ABG pCO2 POC ABG pO2 ABG pO2 ABG HCO3 ABG Base Excess ABG Hemoglobin Oxyhemoglobin Sodium Potassium Chloride Carbon Dioxide BUN Creatinine Glucose POC Glucose 264 H 252 H 208 H Lactic Acid Calcium AST Alkaline Phosphatase Albumin Urine WBC (Auto) 01/31/17 01/31/17 02/01/17 18:55 22:59 03:38 WBC RBC 2.81 L Hgb 7.4 L Hct 22.1 L MCV 79 L MCH 27 L RDW 17.0 H Plt Count 540 H Lymph % (Auto) [place] % (Auto) Eos % (Auto) Seg Neutrophils % Seg Neuts % (Manual) Lymphocytes % (Manual) Seg Neutrophils # Seg Neutrophils # Man Lymphocytes # (Manual) POC ABG pH ABG pH POC ABG pCO2 32.8 L POC ABG pO2 ABG pO2 ABG HCO3 ABG Base Excess ABG Hemoglobin Oxyhemoglobin Sodium Potassium Chloride Carbon Dioxide BUN Creatinine Glucose POC Glucose 40 L Lactic Acid Calcium AST Alkaline Phosphatase Albumin Urine WBC (Auto) 02/01/17 02/01/17 02/01/17 03:38 05:17 12:19 WBC RBC Hgb Hct MCV MCH RDW Plt Count Lymph % (Auto) [place] % (Auto) Eos % (Auto) Seg Neutrophils % Seg Neuts % (Manual) Lymphocytes % (Manual) Seg Neutrophils # Seg Neutrophils # Man Lymphocytes # (Manual) POC ABG pH ABG pH POC ABG pCO2 POC ABG pO2 ABG pO2 ABG HCO3 ABG Base Excess ABG Hemoglobin Oxyhemoglobin Sodium Potassium Chloride Carbon Dioxide 21 L BUN Creatinine 0.7 L Glucose POC Glucose 140 H 213 H Lactic Acid Calcium AST Alkaline Phosphatase Albumin Urine WBC (Auto) 02/01/17 02/01/17 02/02/17 16:44 23:59 05:14 WBC RBC Hgb Hct MCV MCH RDW Plt Count Lymph % (Auto) [place] % (Auto) Eos % (Auto) Seg Neutrophils % Seg Neuts % (Manual) Lymphocytes % (Manual) Seg Neutrophils # Seg Neutrophils # Man Lymphocytes # (Manual) POC ABG pH ABG pH POC ABG pCO2 POC ABG pO2 ABG pO2 ABG HCO3 ABG Base Excess ABG Hemoglobin Oxyhemoglobin Sodium Potassium Chloride Carbon Dioxide BUN Creatinine Glucose POC Glucose 172 H 181 H 194 H Lactic Acid Calcium AST Alkaline Phosphatase Albumin Urine WBC (Auto) 02/02/17 02/02/17 02/02/17 11:24 11:46 11:46 WBC RBC 2.94 L Hgb 7.5 L Hct 23.0 L MCV 78 L MCH 25 L RDW 16.9 H Plt Count 520 H Lymph % (Auto) [place] % (Auto) Eos % (Auto) Seg Neutrophils % Seg Neuts % (Manual) Lymphocytes % (Manual) Seg Neutrophils # Seg Neutrophils # Man Lymphocytes # (Manual) POC ABG pH ABG pH POC ABG pCO2 POC ABG pO2 ABG pO2 ABG HCO3 ABG Base Excess ABG Hemoglobin Oxyhemoglobin Sodium Potassium Chloride Carbon Dioxide BUN Creatinine 0.6 L Glucose 189 H POC Glucose 209 H Lactic Acid Calcium 8.1 L AST Alkaline Phosphatase Albumin Urine WBC (Auto) 02/02/17 02/02/17 02/03/17 17:47 23:32 05:53 WBC RBC Hgb Hct MCV MCH RDW Plt Count Lymph % (Auto) [place] % (Auto) Eos % (Auto) Seg Neutrophils % Seg Neuts % (Manual) Lymphocytes % (Manual) Seg Neutrophils # Seg Neutrophils # Man Lymphocytes # (Manual) POC ABG pH ABG pH POC ABG pCO2 POC ABG pO2 ABG pO2 ABG HCO3 ABG Base Excess ABG Hemoglobin Oxyhemoglobin Sodium Potassium Chloride Carbon Dioxide BUN Creatinine Glucose POC Glucose 147 H 176 H 224 H Lactic Acid Calcium AST Alkaline Phosphatase Albumin Urine WBC (Auto) 02/03/17 02/03/17 02/03/17 11:19 16:59 23:38 WBC RBC Hgb Hct MCV MCH RDW Plt Count Lymph % (Auto) [place] % (Auto) Eos % (Auto) Seg Neutrophils % Seg Neuts % (Manual) Lymphocytes % (Manual) Seg Neutrophils # Seg Neutrophils # Man Lymphocytes # (Manual) POC ABG pH ABG pH POC ABG pCO2 POC ABG pO2 ABG pO2 ABG HCO3 ABG Base Excess ABG Hemoglobin Oxyhemoglobin Sodium Potassium Chloride Carbon Dioxide BUN Creatinine Glucose POC Glucose 228 H 189 H 191 H Lactic Acid Calcium AST Alkaline Phosphatase Albumin Urine WBC (Auto) 02/04/17 02/04/17 02/04/17 05:45 11:20 17:20 WBC RBC Hgb Hct MCV MCH RDW Plt Count Lymph % (Auto) [place] % (Auto) Eos % (Auto) Seg Neutrophils % Seg Neuts % (Manual) Lymphocytes % (Manual) Seg Neutrophils # Seg Neutrophils # Man Lymphocytes # (Manual) POC ABG pH ABG pH POC ABG pCO2 POC ABG pO2 ABG pO2 ABG HCO3 ABG Base Excess ABG Hemoglobin Oxyhemoglobin Sodium Potassium Chloride Carbon Dioxide BUN Creatinine Glucose POC Glucose 251 H 243 H 163 H Lactic Acid Calcium AST Alkaline Phosphatase Albumin Urine WBC (Auto) 02/05/17 02/05/17 02/05/17 00:17 05:38 12:38 WBC RBC Hgb Hct MCV MCH RDW Plt Count Lymph % (Auto) [place] % (Auto) Eos % (Auto) Seg Neutrophils % Seg Neuts % (Manual) Lymphocytes % (Manual) Seg Neutrophils # Seg Neutrophils # Man Lymphocytes # (Manual) POC ABG pH ABG pH POC ABG pCO2 POC ABG pO2 ABG pO2 ABG HCO3 ABG Base Excess ABG Hemoglobin Oxyhemoglobin Sodium Potassium Chloride Carbon Dioxide BUN Creatinine Glucose POC Glucose 200 H 248 H 241 H Lactic Acid Calcium AST Alkaline Phosphatase Albumin Urine WBC (Auto) 02/05/17 02/05/17 02/06/17 16:29 23:56 05:30 WBC RBC Hgb Hct MCV MCH RDW Plt Count Lymph % (Auto) [place] % (Auto) Eos % (Auto) Seg Neutrophils % Seg Neuts % (Manual) Lymphocytes % (Manual) Seg Neutrophils # Seg Neutrophils # Man Lymphocytes # (Manual) POC ABG pH ABG pH POC ABG pCO2 POC ABG pO2 ABG pO2 ABG HCO3 ABG Base Excess ABG Hemoglobin Oxyhemoglobin Sodium Potassium Chloride Carbon Dioxide BUN Creatinine Glucose POC Glucose 257 H 258 H 120 H Lactic Acid Calcium AST Alkaline Phosphatase Albumin Urine WBC (Auto) 02/06/17 02/06/17 02/06/17 11:50 17:11 23:50 WBC RBC Hgb Hct MCV MCH RDW Plt Count Lymph % (Auto) [place] % (Auto) Eos % (Auto) Seg Neutrophils % Seg Neuts % (Manual) Lymphocytes % (Manual) Seg Neutrophils # Seg Neutrophils # Man Lymphocytes # (Manual) POC ABG pH ABG pH POC ABG pCO2 POC ABG pO2 ABG pO2 ABG HCO3 ABG Base Excess ABG Hemoglobin Oxyhemoglobin Sodium Potassium Chloride Carbon Dioxide BUN Creatinine Glucose POC Glucose 254 H 149 H 240 H Lactic Acid Calcium AST Alkaline Phosphatase Albumin Urine WBC (Auto) 02/07/17 02/07/17 02/07/17 05:22 11:15 18:33 WBC RBC Hgb Hct MCV MCH RDW Plt Count Lymph % (Auto) [place] % (Auto) Eos % (Auto) Seg Neutrophils % Seg Neuts % (Manual) Lymphocytes % (Manual) Seg Neutrophils # Seg Neutrophils # Man Lymphocytes # (Manual) POC ABG pH ABG pH POC ABG pCO2 POC ABG pO2 ABG pO2 ABG HCO3 ABG Base Excess ABG Hemoglobin Oxyhemoglobin Sodium Potassium Chloride Carbon Dioxide BUN Creatinine Glucose POC Glucose 258 H 239 H 176 H Lactic Acid Calcium AST Alkaline Phosphatase Albumin Urine WBC (Auto) 02/07/17 02/08/17 02/08/17 23:59 06:15 11:55 WBC RBC Hgb Hct MCV MCH RDW Plt Count Lymph % (Auto) [place] % (Auto) Eos % (Auto) Seg Neutrophils % Seg Neuts % (Manual) Lymphocytes % (Manual) Seg Neutrophils # Seg Neutrophils # Man Lymphocytes # (Manual) POC ABG pH ABG pH POC ABG pCO2 POC ABG pO2 ABG pO2 ABG HCO3 ABG Base Excess ABG Hemoglobin Oxyhemoglobin Sodium Potassium Chloride Carbon Dioxide BUN Creatinine Glucose POC Glucose 186 H 195 H 129 H Lactic Acid Calcium AST Alkaline Phosphatase Albumin Urine WBC (Auto)
[2017-02-09] MEDS: NOVOLOG SUB-Q SCH ×5 (06:00→19:46)
[2017-02-09] MEDS: SYNTHROID PO SCH (06:15)
[2017-02-09 07:41] LABS: Basophils # (Auto) 0.1 K/mm3 (0.0-0.1); Basophils % (Auto) 0.4 % (0.0-1.8); Eosinophils # (Auto) 0.3 K/mm3 (0.0-0.4); Eosinophils % (Auto) 1.9 % (0.0-4.3); Hematocrit 26.4 % (35.5-45.6); Hemoglobin 8.9 gm/dl (11.8-15.2); Lymphocytes # (Auto) 1.7 K/mm3 (1.2-5.4); Lymphocytes % (Auto) 11.8 % (13.4-35.0); Mean Corpuscular HGB Conc 34 % (32-34); Mean Corpuscular Hemoglobin 26 pg (28-32); Mean Corpuscular Volume 78 fl (84-94); Monocytes # (Auto) 0.7 K/mm3 (0.0-0.8); Monocytes % (Auto) 4.7 % (0.0-7.3); Platelet Count 670 K/mm3 (140-440); Red Blood Count 3.39 M/mm3 (3.65-5.03); Red Cell Distribution Width 18.4 % (13.2-15.2)
[2017-02-09 08:00] LABS: BUN/Creatinine Ratio 65; Blood Urea Nitrogen 52 mg/dL (9-20); Calcium 9.4 mg/dL (8.4-10.2); Hemolysis Index 0
[2017-02-09] MEDS: NORMODYNE PO SCH ×2 (09:26→22:49)
[2017-02-09] MEDS: LEVEMIR (NF) SUB-Q SCH (09:26)
[2017-02-09] MEDS: PEPCID PO SCH ×2 (09:26→22:50)
[2017-02-09] MEDS: HEPARIN SUB-Q SCH ×2 (09:27→22:50)
--- NOTE | 2017-02-09 13:58 | Progress Note ---
Assessment and Plan Imp: 1. Hypoglycemia/hypothermia -> suspect due to too much insulin 2. Hypothyroidism; doubt myxedema coma with normal free T4 3. Acute respiratory failure, hypoxia 4. UTI/SIRS 5. Metabolic encephalopathy Rec: 1. GI/DVT PPx/TFs 2. Reviewed chart; ethics note 01/18/17 recommended AND and "hospice"; trying to get guardianship to sign necessary orders for this (however, I was told they are not willing to sign for withdrawal of ventilator); further care felt to be futile and would only prolong potential suffering without affecting ultimate outcome 3. Comfort care, no escalation of care; would not check any further labs, etc. 4. Poor prognosis Unable to locate family. Subjective Date of service: 02/09/17 Principal diagnosis: Acute respiratory failure,encephalopathy Interval history: No events. On vent. Unresponsive. Active Medications Acetaminophen (Tylenol) 650 mg FEEDTUBE Q6H PRN PRN Reason: Non Cardiac Pain Or Temp>101 Last Admin: 01/29/17 21:56 Dose: 650 mg Lipase/Protease/Amylase (Pancreaze Dr 10,500 Unit) 1 each FEEDTUBE PRN PRN PRN Reason: For Clogged Feeding Tube Dextrose (D50w (25gm) Vial) 50 gm IV PRN PRN PRN Reason: Hypoglycemia Famotidine (Pepcid) 20 mg PO BID [facility] Last Admin: 02/09/17 09:26 Dose: 20 mg Heparin Sodium (Porcine) (Heparin) 5,000 unit SUB-Q Q12HR [facility] Last Admin: 02/09/17 09:27 Dose: 5,000 unit Hydralazine HCl (Apresoline) 10 mg IV Q4HR PRN PRN Reason: Hypertension Last Admin: 02/02/17 06:14 Dose: 10 mg Hydrophilic Ointment (Vaseline Lip Therapy) 1 applic TP Q2HR PRN PRN Reason: Dry Lips Insulin Aspart (Novolog) 0 units SUB-Q Q6HR [facility] PRN Reason: Protocol Last Admin: 02/09/17 12:38 Dose: 3 units Insulin Detemir (Levemir) 10 units SUB-Q DAILY [facility] Last Admin: 02/09/17 09:26 Dose: 10 units Labetalol HCl (Normodyne) 200 mg PO BID [facility] Last Admin: 02/09/17 09:26 Dose: 200 mg Levothyroxine Sodium (Synthroid) 100 mcg PO DAILY@0600 [facility] Last Admin: 02/09/17 06:15 Dose: 100 mcg Loperamide HCl (Imodium A-D) 2 mg PO Q2H PRN PRN Reason: Diarrhea Last Admin: 02/08/17 09:36 Dose: 2 mg Multi-Ingred Cream/Lotion/Oil/Oint (Artificial Tears Ophth Oint) 1 applic OU Q4HR PRN PRN Reason: Dry Eye(s) Simple Syrup (Simple Syrup) 15 ml FEEDTUBE PRN PRN PRN Reason: Hypoglycemia Last Admin: 01/31/17 23:19 Dose: 15 ml Simple Syrup (Simple Syrup) 30 ml FEEDTUBE PRN PRN PRN Reason: Hypoglycemia Sodium Bicarbonate (Sodium Bicarbonate) 325 mg FEEDTUBE PRN PRN PRN Reason: For Clogged Feeding Tube Objective Vital Signs - 12hr 02/09/17 02/09/17 02/09/17 02:00 03:00 03:56 Temperature Pulse Rate 70 71 84 Respiratory 14 15 Rate Blood Pressure 131/75 123/74 O2 Sat by Pulse 96 97 99 Oximetry 02/09/17 02/09/17 02/09/17 04:00 05:00 06:00 Temperature 99.3 F 99.3 F Pulse Rate 71 72 73 Respiratory 14 15 13 Rate Blood Pressure 121/75 119/77 134/79 O2 Sat by Pulse 98 97 95 Oximetry 02/09/17 02/09/17 02/09/17 07:00 08:00 08:20 Temperature 97.9 F Pulse Rate 70 71 70 Respiratory 13 12 Rate Blood Pressure 123/73 125/75 O2 Sat by Pulse 93 98 100 Oximetry 02/09/17 02/09/17 02/09/17 09:00 09:26 10:00 Temperature Pulse Rate 73 76 72 Respiratory 13 12 Rate Blood Pressure 117/74 117/74 113/71 O2 Sat by Pulse 98 98 Oximetry 02/09/17 02/09/17 02/09/17 11:00 11:50 12:00 Temperature 97.8 F Pulse Rate 71 71 71 Respiratory 15 13 Rate Blood Pressure 121/73 121/71 120/71 O2 Sat by Pulse 99 98 97 Oximetry 02/09/17 13:00 Temperature Pulse Rate 68 Respiratory 15 Rate Blood Pressure 132/73 O2 Sat by Pulse 96 Oximetry Constitutional: comatose, other (orally intubated, on vent) Eyes: non-icteric ENT: oropharynx moist Neck: supple Effort: normal Ascultation: Bilateral: clear Cardiovascular: regular rate and rhythm (no mrg) Gastrointestinal: normoactive bowel sounds, soft, non-tender, non-distended Integumentary: normal Extremities: no cyanosis, no edema, pink and warm Neurologic: other (unresponsive, flaccid extremities) Psychiatric: other (unable to obtain) CBC and BMP: 02/09/17 07:24 02/09/17 07:24 ABG, PT/INR, D-dimer: ABG POC ABG pH 7.442 (7.35-7.45) 01/31/17 18:55 ABG pH 7.420 pH Units (7.350-7.450) 01/17/17 04:35 POC ABG pCO2 32.8 (35-45) L 01/31/17 18:55 ABG pCO2 34.5 mm Hg 01/17/17 04:35 POC ABG pO2 82 (80-105) 01/31/17 18:55 ABG pO2 160.3 mm Hg (80.0-90.0) H 01/17/17 04:35 POC ABG HCO3 22.4 01/31/17 18:55 POC ABG Total CO2 23 01/31/17 18:55 POC ABG O2 Sat 97 01/31/17 18:55 ABG O2 Saturation 99.0 % (95.0-99.0) 01/17/17 04:35 PT/INR, D-dimer PT 14.1 Sec. (12.2-14.9) 01/17/17 04:10 INR 1.04 (0.87-1.13) 01/17/17 04:10 Abnormal lab findings: Abnormal Labs 01/09/17 01/09/17 01/09/17 12:49 13:13 14:21 WBC RBC Hgb Hct MCV MCH RDW Plt Count Lymph % (Auto) Davison % (Auto) Eos % (Auto) Seg Neutrophils % Seg Neuts % (Manual) Lymphocytes % (Manual) Seg Neutrophils # Seg Neutrophils # Man Lymphocytes # (Manual) POC ABG pH ABG pH POC ABG pCO2 POC ABG pO2 ABG pO2 ABG HCO3 ABG Base Excess ABG Hemoglobin Oxyhemoglobin Sodium Potassium Chloride Carbon Dioxide BUN Creatinine Glucose POC Glucose < 40 L 128 H 65 L Lactic Acid Calcium AST Alkaline Phosphatase Albumin Urine WBC (Auto) 01/09/17 01/09/17 01/09/17 15:09 16:28 17:14 WBC RBC Hgb Hct MCV MCH RDW Plt Count Lymph % (Auto) Davison % (Auto) Eos % (Auto) Seg Neutrophils % Seg Neuts % (Manual) Lymphocytes % (Manual) Seg Neutrophils # Seg Neutrophils # Man Lymphocytes # (Manual) POC ABG pH ABG pH POC ABG pCO2 POC ABG pO2 ABG pO2 ABG HCO3 ABG Base Excess ABG Hemoglobin Oxyhemoglobin Sodium Potassium Chloride Carbon Dioxide BUN Creatinine Glucose POC Glucose 120 H 44 L 112 H Lactic Acid Calcium AST Alkaline Phosphatase Albumin Urine WBC (Auto) 01/10/17 01/10/17 01/10/17 04:30 04:30 05:41 WBC 24.1 H RBC 3.38 L Hgb 8.5 L Hct 26.0 L MCV 77 L MCH 25 L RDW 17.9 H Plt Count 474 H Lymph % (Auto) Davison % (Auto) Eos % (Auto) Seg Neutrophils % Seg Neuts % (Manual) 88.0 H Lymphocytes % (Manual) 4.0 L Seg Neutrophils # Seg Neutrophils # Man 21.2 H Lymphocytes # (Manual) 1.0 L POC ABG pH ABG pH POC ABG pCO2 POC ABG pO2 ABG pO2 ABG HCO3 ABG Base Excess ABG Hemoglobin Oxyhemoglobin Sodium Potassium Chloride Carbon Dioxide 17 L BUN 27 H Creatinine Glucose POC Glucose 68 L Lactic Acid Calcium 7.5 L AST Alkaline Phosphatase Albumin Urine WBC (Auto) 01/10/17 01/10/17 01/10/17 05:45 07:47 10:50 WBC RBC Hgb Hct MCV MCH RDW Plt Count Lymph % (Auto) Davison % (Auto) Eos % (Auto) Seg Neutrophils % Seg Neuts % (Manual) Lymphocytes % (Manual) Seg Neutrophils # Seg Neutrophils # Man Lymphocytes # (Manual) POC ABG pH ABG pH POC ABG pCO2 26.6 L POC ABG pO2 207 H ABG pO2 ABG HCO3 ABG Base Excess ABG Hemoglobin Oxyhemoglobin Sodium Potassium Chloride Carbon Dioxide BUN Creatinine Glucose POC Glucose 148 H 165 H Lactic Acid Calcium AST Alkaline Phosphatase Albumin Urine WBC (Auto) 01/10/17 01/10/17 01/10/17 13:41 20:20 21:39 WBC RBC Hgb Hct MCV MCH RDW Plt Count Lymph % (Auto) Davison % (Auto) Eos % (Auto) Seg Neutrophils % Seg Neuts % (Manual) Lymphocytes % (Manual) Seg Neutrophils # Seg Neutrophils # Man Lymphocytes # (Manual) POC ABG pH ABG pH POC ABG pCO2 POC ABG pO2 ABG pO2 ABG HCO3 ABG Base Excess ABG Hemoglobin Oxyhemoglobin Sodium Potassium Chloride Carbon Dioxide BUN Creatinine Glucose POC Glucose 114 H 150 H 175 H Lactic Acid Calcium AST Alkaline Phosphatase Albumin Urine WBC (Auto) 01/10/17 01/11/17 01/11/17 23:24 00:19 04:06 WBC RBC Hgb Hct MCV MCH RDW Plt Count Lymph % (Auto) Davison % (Auto) Eos % (Auto) Seg Neutrophils % Seg Neuts % (Manual) Lymphocytes % (Manual) Seg Neutrophils # Seg Neutrophils # Man Lymphocytes # (Manual) POC ABG pH 7.463 H ABG pH POC ABG pCO2 26.2 L POC ABG pO2 185 H ABG pO2 ABG HCO3 ABG Base Excess ABG Hemoglobin Oxyhemoglobin Sodium Potassium Chloride Carbon Dioxide BUN Creatinine Glucose POC Glucose 155 H 163 H Lactic Acid Calcium AST Alkaline Phosphatase Albumin Urine WBC (Auto) 01/11/17 01/11/17 01/11/17 05:20 05:20 06:21 WBC 15.2 H RBC 3.40 L Hgb 8.9 L Hct 26.3 L MCV 78 L MCH 26 L RDW 18.6 H Plt Count 462 H Lymph % (Auto) 13.2 L Davison % (Auto) Eos % (Auto) Seg Neutrophils % 80.8 H Seg Neuts % (Manual) Lymphocytes % (Manual) Seg Neutrophils # 12.3 H Seg Neutrophils # Man Lymphocytes # (Manual) POC ABG pH ABG pH POC ABG pCO2 POC ABG pO2 ABG pO2 ABG HCO3 ABG Base Excess ABG Hemoglobin Oxyhemoglobin Sodium Potassium 3.4 L Chloride 111.5 H Carbon Dioxide 17 L BUN Creatinine Glucose 147 H POC Glucose 139 H Lactic Acid Calcium 8.0 L AST Alkaline Phosphatase Albumin Urine WBC (Auto) 01/11/17 01/11/17 01/11/17 07:57 11:46 16:50 WBC RBC Hgb Hct MCV MCH RDW Plt Count Lymph % (Auto) Davison % (Auto) Eos % (Auto) Seg Neutrophils % Seg Neuts % (Manual) Lymphocytes % (Manual) Seg Neutrophils # Seg Neutrophils # Man Lymphocytes # (Manual) POC ABG pH ABG pH POC ABG pCO2 POC ABG pO2 ABG pO2 ABG HCO3 ABG Base Excess ABG Hemoglobin Oxyhemoglobin Sodium Potassium Chloride Carbon Dioxide BUN Creatinine Glucose POC Glucose 188 H 199 H 235 H Lactic Acid Calcium AST Alkaline Phosphatase Albumin Urine WBC (Auto) 01/11/17 01/12/17 01/12/17 23:15 05:02 06:56 WBC RBC Hgb Hct MCV MCH RDW Plt Count Lymph % (Auto) Davison % (Auto) Eos % (Auto) Seg Neutrophils % Seg Neuts % (Manual) Lymphocytes % (Manual) Seg Neutrophils # Seg Neutrophils # Man Lymphocytes # (Manual) POC ABG pH ABG pH POC ABG pCO2 28.0 L POC ABG pO2 178 H ABG pO2 ABG HCO3 ABG Base Excess ABG Hemoglobin Oxyhemoglobin Sodium Potassium Chloride Carbon Dioxide BUN Creatinine Glucose POC Glucose 155 H 119 H Lactic Acid Calcium AST Alkaline Phosphatase Albumin Urine WBC (Auto) 01/12/17 01/13/17 01/13/17 14:50 03:37 03:37 WBC RBC 3.61 L Hgb 9.3 L Hct 28.0 L MCV 78 L MCH 26 L RDW 18.2 H Plt Count Lymph % (Auto) Davison % (Auto) Eos % (Auto) Seg Neutrophils % Seg Neuts % (Manual) Lymphocytes % (Manual) Seg Neutrophils # Seg Neutrophils # Man Lymphocytes # (Manual) POC ABG pH ABG pH POC ABG pCO2 POC ABG pO2 ABG pO2 ABG HCO3 ABG Base Excess ABG Hemoglobin Oxyhemoglobin Sodium Potassium Chloride 112.4 H Carbon Dioxide 19 L BUN Creatinine Glucose 118 H POC Glucose 164 H Lactic Acid Calcium 8.0 L AST Alkaline Phosphatase Albumin Urine WBC (Auto) 01/13/17 01/13/17 01/13/17 04:26 06:15 11:50 WBC RBC Hgb Hct MCV MCH RDW Plt Count Lymph % (Auto) Davison % (Auto) Eos % (Auto) Seg Neutrophils % Seg Neuts % (Manual) Lymphocytes % (Manual) Seg Neutrophils # Seg Neutrophils # Man Lymphocytes # (Manual) POC ABG pH 7.485 H ABG pH POC ABG pCO2 25.4 L POC ABG pO2 73 L ABG pO2 ABG HCO3 ABG Base Excess ABG Hemoglobin Oxyhemoglobin Sodium Potassium Chloride Carbon Dioxide BUN Creatinine Glucose POC Glucose 116 H 171 H Lactic Acid Calcium AST Alkaline Phosphatase Albumin Urine WBC (Auto) 01/13/17 01/14/17 01/14/17 17:31 00:02 04:50 WBC RBC 3.32 L Hgb 8.5 L Hct 26.1 L MCV 79 L MCH 26 L RDW 18.2 H Plt Count Lymph % (Auto) Davison % (Auto) 9.0 H Eos % (Auto) Seg Neutrophils % Seg Neuts % (Manual) Lymphocytes % (Manual) Seg Neutrophils # Seg Neutrophils # Man Lymphocytes # (Manual) POC ABG pH ABG pH POC ABG pCO2 POC ABG pO2 ABG pO2 ABG HCO3 ABG Base Excess ABG Hemoglobin Oxyhemoglobin Sodium Potassium Chloride Carbon Dioxide BUN Creatinine Glucose POC Glucose 203 H 157 H Lactic Acid Calcium AST Alkaline Phosphatase Albumin Urine WBC (Auto) 01/14/17 01/14/17 01/14/17 04:50 05:10 11:27 WBC RBC Hgb Hct MCV MCH RDW Plt Count Lymph % (Auto) Davison % (Auto) Eos % (Auto) Seg Neutrophils % Seg Neuts % (Manual) Lymphocytes % (Manual) Seg Neutrophils # Seg Neutrophils # Man Lymphocytes # (Manual) POC ABG pH ABG pH POC ABG pCO2 POC ABG pO2 ABG pO2 ABG HCO3 ABG Base Excess ABG Hemoglobin Oxyhemoglobin Sodium Potassium Chloride 112.5 H Carbon Dioxide BUN Creatinine Glucose 149 H POC Glucose 176 H 147 H Lactic Acid Calcium 8.1 L AST Alkaline Phosphatase Albumin Urine WBC (Auto) 01/14/17 01/14/17 01/15/17 14:07 16:52 00:04 WBC RBC Hgb Hct MCV MCH RDW Plt Count Lymph % (Auto) Davison % (Auto) Eos % (Auto) Seg Neutrophils % Seg Neuts % (Manual) Lymphocytes % (Manual) Seg Neutrophils # Seg Neutrophils # Man Lymphocytes # (Manual) POC ABG pH ABG pH POC ABG pCO2 POC ABG pO2 ABG pO2 ABG HCO3 ABG Base Excess ABG Hemoglobin Oxyhemoglobin Sodium Potassium Chloride Carbon Dioxide BUN Creatinine Glucose POC Glucose 131 H 193 H Lactic Acid Calcium AST Alkaline Phosphatase Albumin Urine WBC (Auto) 53.0 H 01/15/17 01/15/17 01/15/17 05:26 11:49 17:47 WBC RBC Hgb Hct MCV MCH RDW Plt Count Lymph % (Auto) Davison % (Auto) Eos % (Auto) Seg Neutrophils % Seg Neuts % (Manual) Lymphocytes % (Manual) Seg Neutrophils # Seg Neutrophils # Man Lymphocytes # (Manual) POC ABG pH ABG pH POC ABG pCO2 POC ABG pO2 ABG pO2 ABG HCO3 ABG Base Excess ABG Hemoglobin Oxyhemoglobin Sodium Potassium Chloride Carbon Dioxide BUN Creatinine Glucose POC Glucose 215 H 121 H 211 H Lactic Acid Calcium AST Alkaline Phosphatase Albumin Urine WBC (Auto) 01/15/17 01/16/17 01/16/17 21:33 04:30 05:28 WBC RBC Hgb Hct MCV MCH RDW Plt Count Lymph % (Auto) Davison % (Auto) Eos % (Auto) Seg Neutrophils % Seg Neuts % (Manual) Lymphocytes % (Manual) Seg Neutrophils # Seg Neutrophils # Man Lymphocytes # (Manual) POC ABG pH ABG pH 7.457 H POC ABG pCO2 POC ABG pO2 ABG pO2 55.1 L ABG HCO3 19.4 L ABG Base Excess -4.0 L ABG Hemoglobin 6.8 L Oxyhemoglobin 94.9 L Sodium Potassium Chloride Carbon Dioxide BUN Creatinine Glucose POC Glucose 275 H 271 H Lactic Acid Calcium AST Alkaline Phosphatase Albumin Urine WBC (Auto) 01/16/17 01/16/17 01/17/17 13:45 21:39 04:10 WBC 4.4 L RBC 2.98 L Hgb 7.7 L Hct 23.3 L MCV 78 L MCH 26 L RDW 18.1 H Plt Count Lymph % (Auto) Davison % (Auto) Eos % (Auto) Seg Neutrophils % Seg Neuts % (Manual) Lymphocytes % (Manual) Seg Neutrophils # Seg Neutrophils # Man Lymphocytes # (Manual) POC ABG pH ABG pH POC ABG pCO2 POC ABG pO2 ABG pO2 ABG HCO3 ABG Base Excess ABG Hemoglobin Oxyhemoglobin Sodium Potassium Chloride Carbon Dioxide BUN Creatinine Glucose POC Glucose 236 H 258 H Lactic Acid Calcium AST Alkaline Phosphatase Albumin Urine WBC (Auto) 01/17/17 01/17/17 01/17/17 04:10 04:35 12:23 WBC RBC Hgb Hct MCV MCH RDW Plt Count Lymph % (Auto) Davison % (Auto) Eos % (Auto) Seg Neutrophils % Seg Neuts % (Manual) Lymphocytes % (Manual) Seg Neutrophils # Seg Neutrophils # Man Lymphocytes # (Manual) POC ABG pH ABG pH POC ABG pCO2 POC ABG pO2 ABG pO2 160.3 H ABG HCO3 ABG Base Excess -2.3 L ABG Hemoglobin 7.9 L Oxyhemoglobin Sodium Potassium 3.3 L Chloride 108.7 H Carbon Dioxide 20 L BUN 8 L Creatinine Glucose 202 H POC Glucose 321 H Lactic Acid Calcium 7.6 L AST Alkaline Phosphatase Albumin Urine WBC (Auto) 01/17/17 01/18/17 01/18/17 16:01 05:07 12:09 WBC RBC Hgb Hct MCV MCH RDW Plt Count Lymph % (Auto) Davison % (Auto) Eos % (Auto) Seg Neutrophils % Seg Neuts % (Manual) Lymphocytes % (Manual) Seg Neutrophils # Seg Neutrophils # Man Lymphocytes # (Manual) POC ABG pH ABG pH POC ABG pCO2 POC ABG pO2 ABG pO2 ABG HCO3 ABG Base Excess ABG Hemoglobin Oxyhemoglobin Sodium Potassium Chloride Carbon Dioxide BUN Creatinine Glucose POC Glucose 239 H 155 H 203 H Lactic Acid Calcium AST Alkaline Phosphatase Albumin Urine WBC (Auto) 01/18/17 01/18/17 01/19/17 17:54 23:43 04:28 WBC RBC Hgb Hct MCV MCH RDW Plt Count Lymph % (Auto) Davison % (Auto) Eos % (Auto) Seg Neutrophils % Seg Neuts % (Manual) Lymphocytes % (Manual) Seg Neutrophils # Seg Neutrophils # Man Lymphocytes # (Manual) POC ABG pH ABG pH POC ABG pCO2 POC ABG pO2 ABG pO2 ABG HCO3 ABG Base Excess ABG Hemoglobin Oxyhemoglobin Sodium Potassium Chloride Carbon Dioxide BUN Creatinine Glucose POC Glucose 132 H 125 H 182 H Lactic Acid Calcium AST Alkaline Phosphatase Albumin Urine WBC (Auto) 01/19/17 01/19/17 01/20/17 12:11 17:23 00:12 WBC RBC Hgb Hct MCV MCH RDW Plt Count Lymph % (Auto) Davison % (Auto) Eos % (Auto) Seg Neutrophils % Seg Neuts % (Manual) Lymphocytes % (Manual) Seg Neutrophils # Seg Neutrophils # Man Lymphocytes # (Manual) POC ABG pH ABG pH POC ABG pCO2 POC ABG pO2 ABG pO2 ABG HCO3 ABG Base Excess ABG Hemoglobin Oxyhemoglobin Sodium Potassium Chloride Carbon Dioxide BUN Creatinine Glucose POC Glucose 153 H 66 L 139 H Lactic Acid Calcium AST Alkaline Phosphatase Albumin Urine WBC (Auto) 01/20/17 01/20/17 01/20/17 05:44 11:48 17:42 WBC RBC Hgb Hct MCV MCH RDW Plt Count Lymph % (Auto) Davison % (Auto) Eos % (Auto) Seg Neutrophils % Seg Neuts % (Manual) Lymphocytes % (Manual) Seg Neutrophils # Seg Neutrophils # Man Lymphocytes # (Manual) POC ABG pH ABG pH POC ABG pCO2 POC ABG pO2 ABG pO2 ABG HCO3 ABG Base Excess ABG Hemoglobin Oxyhemoglobin Sodium Potassium Chloride Carbon Dioxide BUN Creatinine Glucose POC Glucose 176 H 218 H 132 H Lactic Acid Calcium AST Alkaline Phosphatase Albumin Urine WBC (Auto) 01/20/17 01/21/17 01/21/17 23:43 05:34 11:17 WBC RBC Hgb Hct MCV MCH RDW Plt Count Lymph % (Auto) Davison % (Auto) Eos % (Auto) Seg Neutrophils % Seg Neuts % (Manual) Lymphocytes % (Manual) Seg Neutrophils # Seg Neutrophils # Man Lymphocytes # (Manual) POC ABG pH ABG pH POC ABG pCO2 POC ABG pO2 ABG pO2 ABG HCO3 ABG Base Excess ABG Hemoglobin Oxyhemoglobin Sodium Potassium Chloride Carbon Dioxide BUN Creatinine Glucose POC Glucose 178 H 106 H 213 H Lactic Acid Calcium AST Alkaline Phosphatase Albumin Urine WBC (Auto) 01/21/17 01/22/17 01/22/17 23:37 04:00 04:00 WBC RBC 3.26 L Hgb 8.3 L Hct 25.5 L MCV 78 L MCH 25 L RDW 17.9 H Plt Count Lymph % (Auto) Davison % (Auto) 7.9 H Eos % (Auto) 6.2 H Seg Neutrophils % Seg Neuts % (Manual) Lymphocytes % (Manual) Seg Neutrophils # Seg Neutrophils # Man Lymphocytes # (Manual) POC ABG pH ABG pH POC ABG pCO2 POC ABG pO2 ABG pO2 ABG HCO3 ABG Base Excess ABG Hemoglobin Oxyhemoglobin Sodium Potassium Chloride 95.5 L Carbon Dioxide 31 H D BUN Creatinine Glucose 134 H POC Glucose 140 H Lactic Acid Calcium AST 44 H Alkaline Phosphatase 379 H Albumin 2.7 L Urine WBC (Auto) 01/22/17 01/22/17 01/22/17 04:58 12:12 18:12 WBC RBC Hgb Hct MCV MCH RDW Plt Count Lymph % (Auto) Davison % (Auto) Eos % (Auto) Seg Neutrophils % Seg Neuts % (Manual) Lymphocytes % (Manual) Seg Neutrophils # Seg Neutrophils # Man Lymphocytes # (Manual) POC ABG pH ABG pH POC ABG pCO2 POC ABG pO2 ABG pO2 ABG HCO3 ABG Base Excess ABG Hemoglobin Oxyhemoglobin Sodium Potassium Chloride Carbon Dioxide BUN Creatinine Glucose POC Glucose 146 H 255 H 182 H Lactic Acid Calcium AST Alkaline Phosphatase Albumin Urine WBC (Auto) 01/22/17 01/23/17 01/23/17 23:39 04:43 12:12 WBC RBC Hgb Hct MCV MCH RDW Plt Count Lymph % (Auto) Davison % (Auto) Eos % (Auto) Seg Neutrophils % Seg Neuts % (Manual) Lymphocytes % (Manual) Seg Neutrophils # Seg Neutrophils # Man Lymphocytes # (Manual) POC ABG pH ABG pH POC ABG pCO2 POC ABG pO2 ABG pO2 ABG HCO3 ABG Base Excess ABG Hemoglobin Oxyhemoglobin Sodium Potassium Chloride Carbon Dioxide BUN Creatinine Glucose POC Glucose 134 H 218 H 128 H Lactic Acid Calcium AST Alkaline Phosphatase Albumin Urine WBC (Auto) 01/23/17 01/24/17 01/24/17 17:36 00:08 05:16 WBC RBC Hgb Hct MCV MCH RDW Plt Count Lymph % (Auto) Davison % (Auto) Eos % (Auto) Seg Neutrophils % Seg Neuts % (Manual) Lymphocytes % (Manual) Seg Neutrophils # Seg Neutrophils # Man Lymphocytes # (Manual) POC ABG pH ABG pH POC ABG pCO2 POC ABG pO2 ABG pO2 ABG HCO3 ABG Base Excess ABG Hemoglobin Oxyhemoglobin Sodium Potassium Chloride Carbon Dioxide BUN Creatinine Glucose POC Glucose 156 H 129 H 169 H Lactic Acid Calcium AST Alkaline Phosphatase Albumin Urine WBC (Auto) 01/24/17 01/24/17 01/24/17 11:40 17:43 23:23 WBC RBC Hgb Hct MCV MCH RDW Plt Count Lymph % (Auto) Davison % (Auto) Eos % (Auto) Seg Neutrophils % Seg Neuts % (Manual) Lymphocytes % (Manual) Seg Neutrophils # Seg Neutrophils # Man Lymphocytes # (Manual) POC ABG pH ABG pH POC ABG pCO2 POC ABG pO2 ABG pO2 ABG HCO3 ABG Base Excess ABG Hemoglobin Oxyhemoglobin Sodium Potassium Chloride Carbon Dioxide BUN Creatinine Glucose POC Glucose 187 H 215 H 222 H Lactic Acid Calcium AST Alkaline Phosphatase Albumin Urine WBC (Auto) 01/25/17 01/25/17 01/25/17 04:56 11:52 17:37 WBC RBC Hgb Hct MCV MCH RDW Plt Count Lymph % (Auto) Davison % (Auto) Eos % (Auto) Seg Neutrophils % Seg Neuts % (Manual) Lymphocytes % (Manual) Seg Neutrophils # Seg Neutrophils # Man Lymphocytes # (Manual) POC ABG pH ABG pH POC ABG pCO2 POC ABG pO2 ABG pO2 ABG HCO3 ABG Base Excess ABG Hemoglobin Oxyhemoglobin Sodium Potassium Chloride Carbon Dioxide BUN Creatinine Glucose POC Glucose 210 H 284 H 218 H Lactic Acid Calcium AST Alkaline Phosphatase Albumin Urine WBC (Auto) 01/26/17 01/26/17 01/26/17 00:02 05:33 12:17 WBC RBC Hgb Hct MCV MCH RDW Plt Count Lymph % (Auto) Davison % (Auto) Eos % (Auto) Seg Neutrophils % Seg Neuts % (Manual) Lymphocytes % (Manual) Seg Neutrophils # Seg Neutrophils # Man Lymphocytes # (Manual) POC ABG pH ABG pH POC ABG pCO2 POC ABG pO2 ABG pO2 ABG HCO3 ABG Base Excess ABG Hemoglobin Oxyhemoglobin Sodium Potassium Chloride Carbon Dioxide BUN Creatinine Glucose POC Glucose 192 H 199 H 227 H Lactic Acid Calcium AST Alkaline Phosphatase Albumin Urine WBC (Auto) 01/26/17 01/26/17 01/27/17 17:50 23:57 05:31 WBC RBC Hgb Hct MCV MCH RDW Plt Count Lymph % (Auto) Davison % (Auto) Eos % (Auto) Seg Neutrophils % Seg Neuts % (Manual) Lymphocytes % (Manual) Seg Neutrophils # Seg Neutrophils # Man Lymphocytes # (Manual) POC ABG pH ABG pH POC ABG pCO2 POC ABG pO2 ABG pO2 ABG HCO3 ABG Base Excess ABG Hemoglobin Oxyhemoglobin Sodium Potassium Chloride Carbon Dioxide BUN Creatinine Glucose POC Glucose 229 H 186 H 285 H Lactic Acid Calcium AST Alkaline Phosphatase Albumin Urine WBC (Auto) 01/27/17 01/27/17 01/27/17 11:42 17:47 23:58 WBC RBC Hgb Hct MCV MCH RDW Plt Count Lymph % (Auto) Davison % (Auto) Eos % (Auto) Seg Neutrophils % Seg Neuts % (Manual) Lymphocytes % (Manual) Seg Neutrophils # Seg Neutrophils # Man Lymphocytes # (Manual) POC ABG pH ABG pH POC ABG pCO2 POC ABG pO2 ABG pO2 ABG HCO3 ABG Base Excess ABG Hemoglobin Oxyhemoglobin Sodium Potassium Chloride Carbon Dioxide BUN Creatinine Glucose POC Glucose 260 H 329 H 225 H Lactic Acid Calcium AST Alkaline Phosphatase Albumin Urine WBC (Auto) 01/27/17 01/27/17 01/28/17 Unknown Unknown 03:44 WBC 12.1 H RBC 3.28 L 3.14 L Hgb 8.5 L 8.2 L Hct 25.5 L 24.1 L MCV 78 L 77 L MCH 26 L 26 L RDW 16.8 H 16.9 H Plt Count 601 H 567 H Lymph % (Auto) Davison % (Auto) Eos % (Auto) Seg Neutrophils % Seg Neuts % (Manual) Lymphocytes % (Manual) Seg Neutrophils # Seg Neutrophils # Man Lymphocytes # (Manual) POC ABG pH ABG pH POC ABG pCO2 POC ABG pO2 ABG pO2 ABG HCO3 ABG Base Excess ABG Hemoglobin Oxyhemoglobin Sodium 128 L Potassium 5.4 H Chloride 87.5 L Carbon Dioxide BUN 44 H Creatinine Glucose 250 H POC Glucose Lactic Acid Calcium AST Alkaline Phosphatase Albumin Urine WBC (Auto) 01/28/17 01/28/17 01/28/17 03:44 11:43 16:47 WBC RBC Hgb Hct MCV MCH RDW Plt Count Lymph % (Auto) Davison % (Auto) Eos % (Auto) Seg Neutrophils % Seg Neuts % (Manual) Lymphocytes % (Manual) Seg Neutrophils # Seg Neutrophils # Man Lymphocytes # (Manual) POC ABG pH ABG pH POC ABG pCO2 POC ABG pO2 ABG pO2 ABG HCO3 ABG Base Excess ABG Hemoglobin Oxyhemoglobin Sodium Potassium Chloride Carbon Dioxide BUN 42 H Creatinine Glucose 128 H POC Glucose 351 H 249 H Lactic Acid Calcium AST Alkaline Phosphatase Albumin Urine WBC (Auto) 01/28/17 01/29/17 01/29/17 17:52 05:25 05:25 WBC 13.6 H RBC 3.25 L Hgb 8.3 L Hct 25.1 L MCV 77 L MCH 26 L RDW 16.8 H Plt Count 514 H Lymph % (Auto) Davison % (Auto) Eos % (Auto) Seg Neutrophils % Seg Neuts % (Manual) Lymphocytes % (Manual) Seg Neutrophils # Seg Neutrophils # Man Lymphocytes # (Manual) POC ABG pH ABG pH POC ABG pCO2 POC ABG pO2 ABG pO2 ABG HCO3 ABG Base Excess ABG Hemoglobin Oxyhemoglobin Sodium Potassium Chloride 97.8 L Carbon Dioxide BUN 34 H Creatinine Glucose 222 H POC Glucose Lactic Acid Calcium AST Alkaline Phosphatase Albumin Urine WBC (Auto) > 182.0 H 01/29/17 01/29/17 01/29/17 09:32 11:56 18:11 WBC RBC Hgb Hct MCV MCH RDW Plt Count Lymph % (Auto) Davison % (Auto) Eos % (Auto) Seg Neutrophils % Seg Neuts % (Manual) Lymphocytes % (Manual) Seg Neutrophils # Seg Neutrophils # Man Lymphocytes # (Manual) POC ABG pH ABG pH POC ABG pCO2 POC ABG pO2 ABG pO2 ABG HCO3 ABG Base Excess ABG Hemoglobin Oxyhemoglobin Sodium Potassium Chloride Carbon Dioxide BUN Creatinine Glucose POC Glucose 261 H 215 H Lactic Acid 2.50 H* Calcium AST Alkaline Phosphatase Albumin Urine WBC (Auto) 01/29/17 01/30/17 01/30/17 23:55 05:31 05:31 WBC 15.2 H RBC 3.09 L Hgb 7.9 L Hct 23.9 L MCV 77 L MCH 26 L RDW 16.9 H Plt Count 569 H Lymph % (Auto) [place] % (Auto) Eos % (Auto) Seg Neutrophils % Seg Neuts % (Manual) Lymphocytes % (Manual) Seg Neutrophils # Seg Neutrophils # Man Lymphocytes # (Manual) POC ABG pH ABG pH POC ABG pCO2 POC ABG pO2 ABG pO2 ABG HCO3 ABG Base Excess ABG Hemoglobin Oxyhemoglobin Sodium Potassium Chloride Carbon Dioxide BUN 24 H Creatinine Glucose 235 H POC Glucose 176 H Lactic Acid Calcium AST Alkaline Phosphatase Albumin Urine WBC (Auto) 01/30/17 01/30/17 01/30/17 05:34 11:38 17:58 WBC RBC Hgb Hct MCV MCH RDW Plt Count Lymph % (Auto) [place] % (Auto) Eos % (Auto) Seg Neutrophils % Seg Neuts % (Manual) Lymphocytes % (Manual) Seg Neutrophils # Seg Neutrophils # Man Lymphocytes # (Manual) POC ABG pH ABG pH POC ABG pCO2 POC ABG pO2 ABG pO2 ABG HCO3 ABG Base Excess ABG Hemoglobin Oxyhemoglobin Sodium Potassium Chloride Carbon Dioxide BUN Creatinine Glucose POC Glucose 243 H 298 H 208 H Lactic Acid Calcium AST Alkaline Phosphatase Albumin Urine WBC (Auto) 01/30/17 01/31/17 01/31/17 23:29 04:39 04:39 WBC 11.4 H RBC 3.22 L Hgb 8.2 L Hct 24.9 L MCV 78 L MCH 25 L RDW 17.2 H Plt Count 576 H Lymph % (Auto) [place] % (Auto) Eos % (Auto) Seg Neutrophils % Seg Neuts % (Manual) Lymphocytes % (Manual) Seg Neutrophils # Seg Neutrophils # Man Lymphocytes # (Manual) POC ABG pH ABG pH POC ABG pCO2 POC ABG pO2 ABG pO2 ABG HCO3 ABG Base Excess ABG Hemoglobin Oxyhemoglobin Sodium Potassium Chloride Carbon Dioxide BUN Creatinine 0.7 L Glucose 223 H POC Glucose 245 H Lactic Acid Calcium AST Alkaline Phosphatase Albumin Urine WBC (Auto) 01/31/17 01/31/17 01/31/17 05:57 12:23 17:41 WBC RBC Hgb Hct MCV MCH RDW Plt Count Lymph % (Auto) [place] % (Auto) Eos % (Auto) Seg Neutrophils % Seg Neuts % (Manual) Lymphocytes % (Manual) Seg Neutrophils # Seg Neutrophils # Man Lymphocytes # (Manual) POC ABG pH ABG pH POC ABG pCO2 POC ABG pO2 ABG pO2 ABG HCO3 ABG Base Excess ABG Hemoglobin Oxyhemoglobin Sodium Potassium Chloride Carbon Dioxide BUN Creatinine Glucose POC Glucose 264 H 252 H 208 H Lactic Acid Calcium AST Alkaline Phosphatase Albumin Urine WBC (Auto) 01/31/17 01/31/17 02/01/17 18:55 22:59 03:38 WBC RBC 2.81 L Hgb 7.4 L Hct 22.1 L MCV 79 L MCH 27 L RDW 17.0 H Plt Count 540 H Lymph % (Auto) [place] % (Auto) Eos % (Auto) Seg Neutrophils % Seg Neuts % (Manual) Lymphocytes % (Manual) Seg Neutrophils # Seg Neutrophils # Man Lymphocytes # (Manual) POC ABG pH ABG pH POC ABG pCO2 32.8 L POC ABG pO2 ABG pO2 ABG HCO3 ABG Base Excess ABG Hemoglobin Oxyhemoglobin Sodium Potassium Chloride Carbon Dioxide BUN Creatinine Glucose POC Glucose 40 L Lactic Acid Calcium AST Alkaline Phosphatase Albumin Urine WBC (Auto) 02/01/17 02/01/17 02/01/17 03:38 05:17 12:19 WBC RBC Hgb Hct MCV MCH RDW Plt Count Lymph % (Auto) [place] % (Auto) Eos % (Auto) Seg Neutrophils % Seg Neuts % (Manual) Lymphocytes % (Manual) Seg Neutrophils # Seg Neutrophils # Man Lymphocytes # (Manual) POC ABG pH ABG pH POC ABG pCO2 POC ABG pO2 ABG pO2 ABG HCO3 ABG Base Excess ABG Hemoglobin Oxyhemoglobin Sodium Potassium Chloride Carbon Dioxide 21 L BUN Creatinine 0.7 L Glucose POC Glucose 140 H 213 H Lactic Acid Calcium AST Alkaline Phosphatase Albumin Urine WBC (Auto) 02/01/17 02/01/17 02/02/17 16:44 23:59 05:14 WBC RBC Hgb Hct MCV MCH RDW Plt Count Lymph % (Auto) [place] % (Auto) Eos % (Auto) Seg Neutrophils % Seg Neuts % (Manual) Lymphocytes % (Manual) Seg Neutrophils # Seg Neutrophils # Man Lymphocytes # (Manual) POC ABG pH ABG pH POC ABG pCO2 POC ABG pO2 ABG pO2 ABG HCO3 ABG Base Excess ABG Hemoglobin Oxyhemoglobin Sodium Potassium Chloride Carbon Dioxide BUN Creatinine Glucose POC Glucose 172 H 181 H 194 H Lactic Acid Calcium AST Alkaline Phosphatase Albumin Urine WBC (Auto) 02/02/17 02/02/17 02/02/17 11:24 11:46 11:46 WBC RBC 2.94 L Hgb 7.5 L Hct 23.0 L MCV 78 L MCH 25 L RDW 16.9 H Plt Count 520 H Lymph % (Auto) [place] % (Auto) Eos % (Auto) Seg Neutrophils % Seg Neuts % (Manual) Lymphocytes % (Manual) Seg Neutrophils # Seg Neutrophils # Man Lymphocytes # (Manual) POC ABG pH ABG pH POC ABG pCO2 POC ABG pO2 ABG pO2 ABG HCO3 ABG Base Excess ABG Hemoglobin Oxyhemoglobin Sodium Potassium Chloride Carbon Dioxide BUN Creatinine 0.6 L Glucose 189 H POC Glucose 209 H Lactic Acid Calcium 8.1 L AST Alkaline Phosphatase Albumin Urine WBC (Auto) 02/02/17 02/02/17 02/03/17 17:47 23:32 05:53 WBC RBC Hgb Hct MCV MCH RDW Plt Count Lymph % (Auto) [place] % (Auto) Eos % (Auto) Seg Neutrophils % Seg Neuts % (Manual) Lymphocytes % (Manual) Seg Neutrophils # Seg Neutrophils # Man Lymphocytes # (Manual) POC ABG pH ABG pH POC ABG pCO2 POC ABG pO2 ABG pO2 ABG HCO3 ABG Base Excess ABG Hemoglobin Oxyhemoglobin Sodium Potassium Chloride Carbon Dioxide BUN Creatinine Glucose POC Glucose 147 H 176 H 224 H Lactic Acid Calcium AST Alkaline Phosphatase Albumin Urine WBC (Auto) 02/03/17 02/03/17 02/03/17 11:19 16:59 23:38 WBC RBC Hgb Hct MCV MCH RDW Plt Count Lymph % (Auto) [place] % (Auto) Eos % (Auto) Seg Neutrophils % Seg Neuts % (Manual) Lymphocytes % (Manual) Seg Neutrophils # Seg Neutrophils # Man Lymphocytes # (Manual) POC ABG pH ABG pH POC ABG pCO2 POC ABG pO2 ABG pO2 ABG HCO3 ABG Base Excess ABG Hemoglobin Oxyhemoglobin Sodium Potassium Chloride Carbon Dioxide BUN Creatinine Glucose POC Glucose 228 H 189 H 191 H Lactic Acid Calcium AST Alkaline Phosphatase Albumin Urine WBC (Auto) 02/04/17 02/04/17 02/04/17 05:45 11:20 17:20 WBC RBC Hgb Hct MCV MCH RDW Plt Count Lymph % (Auto) [place] % (Auto) Eos % (Auto) Seg Neutrophils % Seg Neuts % (Manual) Lymphocytes % (Manual) Seg Neutrophils # Seg Neutrophils # Man Lymphocytes # (Manual) POC ABG pH ABG pH POC ABG pCO2 POC ABG pO2 ABG pO2 ABG HCO3 ABG Base Excess ABG Hemoglobin Oxyhemoglobin Sodium Potassium Chloride Carbon Dioxide BUN Creatinine Glucose POC Glucose 251 H 243 H 163 H Lactic Acid Calcium AST Alkaline Phosphatase Albumin Urine WBC (Auto) 02/05/17 02/05/17 02/05/17 00:17 05:38 12:38 WBC RBC Hgb Hct MCV MCH RDW Plt Count Lymph % (Auto) [place] % (Auto) Eos % (Auto) Seg Neutrophils % Seg Neuts % (Manual) Lymphocytes % (Manual) Seg Neutrophils # Seg Neutrophils # Man Lymphocytes # (Manual) POC ABG pH ABG pH POC ABG pCO2 POC ABG pO2 ABG pO2 ABG HCO3 ABG Base Excess ABG Hemoglobin Oxyhemoglobin Sodium Potassium Chloride Carbon Dioxide BUN Creatinine Glucose POC Glucose 200 H 248 H 241 H Lactic Acid Calcium AST Alkaline Phosphatase Albumin Urine WBC (Auto) 02/05/17 02/05/17 02/06/17 16:29 23:56 05:30 WBC RBC Hgb Hct MCV MCH RDW Plt Count Lymph % (Auto) [place] % (Auto) Eos % (Auto) Seg Neutrophils % Seg Neuts % (Manual) Lymphocytes % (Manual) Seg Neutrophils # Seg Neutrophils # Man Lymphocytes # (Manual) POC ABG pH ABG pH POC ABG pCO2 POC ABG pO2 ABG pO2 ABG HCO3 ABG Base Excess ABG Hemoglobin Oxyhemoglobin Sodium Potassium Chloride Carbon Dioxide BUN Creatinine Glucose POC Glucose 257 H 258 H 120 H Lactic Acid Calcium AST Alkaline Phosphatase Albumin Urine WBC (Auto) 02/06/17 02/06/17 02/06/17 11:50 17:11 23:50 WBC RBC Hgb Hct MCV MCH RDW Plt Count Lymph % (Auto) [place] % (Auto) Eos % (Auto) Seg Neutrophils % Seg Neuts % (Manual) Lymphocytes % (Manual) Seg Neutrophils # Seg Neutrophils # Man Lymphocytes # (Manual) POC ABG pH ABG pH POC ABG pCO2 POC ABG pO2 ABG pO2 ABG HCO3 ABG Base Excess ABG Hemoglobin Oxyhemoglobin Sodium Potassium Chloride Carbon Dioxide BUN Creatinine Glucose POC Glucose 254 H 149 H 240 H Lactic Acid Calcium AST Alkaline Phosphatase Albumin Urine WBC (Auto) 02/07/17 02/07/17 02/07/17 05:22 11:15 18:33 WBC RBC Hgb Hct MCV MCH RDW Plt Count Lymph % (Auto) [place] % (Auto) Eos % (Auto) Seg Neutrophils % Seg Neuts % (Manual) Lymphocytes % (Manual) Seg Neutrophils # Seg Neutrophils # Man Lymphocytes # (Manual) POC ABG pH ABG pH POC ABG pCO2 POC ABG pO2 ABG pO2 ABG HCO3 ABG Base Excess ABG Hemoglobin Oxyhemoglobin Sodium Potassium Chloride Carbon Dioxide BUN Creatinine Glucose POC Glucose 258 H 239 H 176 H Lactic Acid Calcium AST Alkaline Phosphatase Albumin Urine WBC (Auto) 02/07/17 02/08/17 02/08/17 23:59 06:15 11:55 WBC RBC Hgb Hct MCV MCH RDW Plt Count Lymph % (Auto) [place] % (Auto) Eos % (Auto) Seg Neutrophils % Seg Neuts % (Manual) Lymphocytes % (Manual) Seg Neutrophils # Seg Neutrophils # Man Lymphocytes # (Manual) POC ABG pH ABG pH POC ABG pCO2 POC ABG pO2 ABG pO2 ABG HCO3 ABG Base Excess ABG Hemoglobin Oxyhemoglobin Sodium Potassium Chloride Carbon Dioxide BUN Creatinine Glucose POC Glucose 186 H 195 H 129 H Lactic Acid Calcium AST Alkaline Phosphatase Albumin Urine WBC (Auto) 02/08/17 02/08/17 02/09/17 16:55 23:51 05:51 WBC RBC Hgb Hct MCV MCH RDW Plt Count Lymph % (Auto) [place] % (Auto) Eos % (Auto) Seg Neutrophils % Seg Neuts % (Manual) Lymphocytes % (Manual) Seg Neutrophils # Seg Neutrophils # Man Lymphocytes # (Manual) POC ABG pH ABG pH POC ABG pCO2 POC ABG pO2 ABG pO2 ABG HCO3 ABG Base Excess ABG Hemoglobin Oxyhemoglobin Sodium Potassium Chloride Carbon Dioxide BUN Creatinine Glucose POC Glucose 246 H 262 H 295 H Lactic Acid Calcium AST Alkaline Phosphatase Albumin Urine WBC (Auto) 02/09/17 02/09/17 07:24 07:24 WBC 14.7 H RBC 3.39 L Hgb 8.9 L Hct 26.4 L MCV 78 L MCH 26 L RDW 18.4 H Plt Count 670 H Lymph % (Auto) 11.8 L [place] % (Auto) Eos % (Auto) Seg Neutrophils % 81.2 H Seg Neuts % (Manual) Lymphocytes % (Manual) Seg Neutrophils # 11.9 H Seg Neutrophils # Man Lymphocytes # (Manual) POC ABG pH ABG pH POC ABG pCO2 POC ABG pO2 ABG pO2 ABG HCO3 ABG Base Excess ABG Hemoglobin Oxyhemoglobin Sodium Potassium Chloride 95.5 L Carbon Dioxide BUN 52 H Creatinine Glucose 277 H POC Glucose Lactic Acid Calcium AST Alkaline Phosphatase Albumin Urine WBC (Auto) Chest x-ray: report reviewed, image reviewed
[2017-02-09] MEDS: TYLENOL FEEDTUBE PRN (22:50)
[2017-02-10] MEDS: NOVOLOG SUB-Q SCH ×4 (00:20→17:33)
[2017-02-10] MEDS: SYNTHROID PO SCH (07:03)
[2017-02-10] MEDS: LEVEMIR (NF) SUB-Q SCH (10:00)
[2017-02-10] MEDS: HEPARIN SUB-Q SCH ×2 (10:01→21:54)
[2017-02-10] MEDS: NORMODYNE PO SCH ×2 (10:01→22:12)
[2017-02-10] MEDS: PEPCID PO SCH ×2 (10:01→22:12)
--- NOTE | 2017-02-10 11:26 | Progress Note ---
Assessment and Plan Assessment and plan: 51 YO Male with CKD,HTN, DM presents to ED for evaluation. Pt unable to provide history. Pt history taken from ED staff, and medical records. Pt found down and unresponsive by his neighbor, who subsequently called EMS. Upon arrival, patient found unresponsive on the floor with a serum glucose of 21, and covered with ants with insulin syringes around him and a bottle of atenolol which still had many pills remaining, patient has a known history of alcohol abuse and delirium tremens. The patient was administered D5 approximate 500 mls during transport without change in mental status/level of consciousness. Pt seen and evaluated in ED was was found to be unable to protect his airway. Pt intubated and placed on vent support. Pt found to have evidence of hypothyroidism. She was started on Synthroid. He has since been in the ICU. The patient continued to deteriorate. He is in this grade 4 coma, brain imaging does not show any reversible cause. The patient remains in a persistent vegetative states. Sepsis has been ruled out. non emergency services ambulance driver try to locate family, even spoke to the family who he lives with. They themselves were unaware of any family members. After ethics committee meeting on the patient. The decision was made to make him DO NOT RESUSCITATE and to transfer him to hospice. Given his very poor prognosis and poor likelihood of recovery. It was decided that was not his best interest to get trach and PEG. Therefore he'll be transferred to the hospice intubated, at this time he is COMFORT CARE as per Ethics committee recommendation. Diagnosis Hypoglycemic brain injury Persistent vegetative state Metabolic encephalopathy Hypoglycemia/hypothermia Acute respiratory failure mechanical ventilator greater than 96 hours Sepsis ruled out, UTI ruled out hyponatremia, Hypothyroidism DNR- awaiting hospice placement, awaiting guardianship from the state to give consent, as has no family to give consent History Interval history: no new issues overnight Hospitalist Physical - Constitutional Vitals: Temp Pulse Resp BP Pulse Ox 98.7 F 70 12 135/75 100 02/10/17 07:56 02/10/17 10:01 02/10/17 10:00 02/10/17 10:02/10/17 10:00 General appearance: Present: no acute distress - EENT Eyes: Present: PERRL, EOM intact ENT: hearing intact, clear oral mucosa, dentition normal - Neck Neck: Present: supple, normal ROM - Respiratory Respiratory effort: normal Respiratory: bilateral: CTA - Cardiovascular Rhythm: regular Heart Sounds: Present: S1 & S2. Absent: gallop, rub - Extremities Extremities: no ischemia, No edema, Full ROM - Abdominal General gastrointestinal: soft, non-tender, non-distended, normal bowel sounds - Integumentary Integumentary: Present: clear, warm, dry - Neurologic Neurologic: CNII-XII intact, moves all extremities Results - Labs CBC & Chem 7: 02/09/17 07:24 02/09/17 07:24 Labs: Laboratory Last Values WBC 14.7 K/mm3 (4.5-11.0) H 02/09/17 07:24 RBC 3.39 M/mm3 (3.65-5.03) L 02/09/17 07:24 Hgb 8.9 gm/dl (11.8-15.2) L 02/09/17 07:24 Hct 26.4 % (35.5-45.6) L 02/09/17 07:24 MCV 78 fl (84-94) L 02/09/17 07:24 MCH 26 pg (28-32) L 02/09/17 07:24 MCHC 34 % (32-34) 02/09/17 07:24 RDW 18.4 % (13.2-15.2) H 02/09/17 07:24 Plt Count 670 K/mm3 (140-440) H 02/09/17 07:24 Lymph % (Auto) 11.8 % (13.4-35.0) L 02/09/17 07:24 [place] % (Auto) 4.7 % (0.0-7.3) 02/09/17 07:24 Eos % (Auto) 1.9 % (0.0-4.3) 02/09/17 07:24 Baso % (Auto) 0.4 % (0.0-1.8) 02/09/17 07:24 Lymph # 1.7 K/mm3 (1.2-5.4) 02/09/17 07:24 [place] # 0.7 K/mm3 (0.0-0.8) 02/09/17 07:24 Eos # 0.3 K/mm3 (0.0-0.4) 02/09/17 07:24 Baso # 0.1 K/mm3 (0.0-0.1) 02/09/17 07:24 Add Manual Diff Complete 01/10/17 04:30 Total Counted 100 01/10/17 04:30 Seg Neutrophils % 81.2 % (40.0-70.0) H 02/09/17 07:24 Seg Neuts % (Manual) 88.0 % (40.0-70.0) H 01/10/17 04:30 Band Neutrophils % 7.0 % 01/10/17 04:30 Lymphocytes % (Manual) 4.0 % (13.4-35.0) L 01/10/17 04:30 Reactive Lymphs % (Man) 0 % 01/10/17 04:30 Monocytes % (Manual) 1.0 % (0.0-7.3) 01/10/17 04:30 Eosinophils % (Manual) 0 % (0.0-4.3) 01/10/17 04:30 Basophils % (Manual) 0 % (0.0-1.8) 01/10/17 04:30 Metamyelocytes % 0 % 01/10/17 04:30 Myelocytes % 0 % 01/10/17 04:30 Promyelocytes % 0 % 01/10/17 04:30 Blast Cells % 0 % 01/10/17 04:30 Nucleated RBC % Not Reportable 01/10/17 04:30 Seg Neutrophils # 11.9 K/mm3 (1.8-7.7) H 02/09/17 07:24 Seg Neutrophils # Man 21.2 K/mm3 (1.8-7.7) H 01/10/17 04:30 Band Neutrophils # 1.7 K/mm3 01/10/17 04:30 Lymphocytes # (Manual) 1.0 K/mm3 (1.2-5.4) L 01/10/17 04:30 Abs React Lymphs (Man) 0.0 K/mm3 01/10/17 04:30 Monocytes # (Manual) 0.2 K/mm3 (0.0-0.8) 01/10/17 04:30 Eosinophils # (Manual) 0.0 K/mm3 (0.0-0.4) 01/10/17 04:30 Basophils # (Manual) 0.0 K/mm3 (0.0-0.1) 01/10/17 04:30 Metamyelocytes # 0.0 K/mm3 01/10/17 04:30 Myelocytes # 0.0 K/mm3 01/10/17 04:30 Promyelocytes # 0.0 K/mm3 01/10/17 04:30 Blast Cells # 0.0 K/mm3 01/10/17 04:30 WBC Morphology Not Reportable 01/10/17 04:30 Hypersegmented Neuts Not Reportable 01/10/17 04:30 Hyposegmented Neuts Not Reportable 01/10/17 04:30 Hypogranular Neuts Not Reportable 01/10/17 04:30 Smudge Cells Not Reportable 01/10/17 04:30 Toxic Granulation Not Reportable 01/10/17 04:30 Toxic Vacuolation Not Reportable 01/10/17 04:30 Dohle Bodies Not Reportable 01/10/17 04:30 Pelger-Huet Anomaly Not Reportable 01/10/17 04:30 [place] Rods Not Reportable 01/10/17 04:30 Platelet Estimate Consistent w auto 01/10/17 04:30 Clumped Platelets Not Reportable 01/10/17 04:30 Plt Clumps, EDTA Not Reportable 01/10/17 04:30 Large Platelets Not Reportable 01/10/17 04:30 Giant Platelets Not Reportable 01/10/17 04:30 Platelet Satelliting Not Reportable 01/10/17 04:30 Plt Morphology Comment Not Reportable 01/10/17 04:30 RBC Morphology Not Reportable 01/10/17 04:30 Dimorphic RBCs Not Reportable 01/10/17 04:30 Polychromasia Not Reportable 01/10/17 04:30 Hypochromasia 1+ 01/10/17 04:30 Poikilocytosis Not Reportable 01/10/17 04:30 Anisocytosis Not Reportable 01/10/17 04:30 Microcytosis Not Reportable 01/10/17 04:30 Macrocytosis Not Reportable 01/10/17 04:30 Spherocytes Not Reportable 01/10/17 04:30 Pappenheimer Bodies Not Reportable 01/10/17 04:30 Sickle Cells Not Reportable 01/10/17 04:30 Target Cells Not Reportable 01/10/17 04:30 Tear Drop Cells Not Reportable 01/10/17 04:30 Ovalocytes Not Reportable 01/10/17 04:30 Helmet Cells Not Reportable 01/10/17 04:30 [place] Bodies Not Reportable 01/10/17 04:30 [place] Rings Not Reportable 01/10/17 04:30 [place] Cells Not Reportable 01/10/17 04:30 Bite Cells Not Reportable 01/10/17 04:30 Crenated Cell Not Reportable 01/10/17 04:30 Elliptocytes Not Reportable 01/10/17 04:30 Acanthocytes (Spur) Not Reportable 01/10/17 04:30 Rouleaux Not Reportable 01/10/17 04:30 Hemoglobin C Crystals Not Reportable 01/10/17 04:30 Schistocytes Not Reportable 01/10/17 04:30 Malaria parasites Not Reportable 01/10/17 04:30 [place] Bodies Not Reportable 01/10/17 04:30 Hem Pathologist Commnt No 01/10/17 04:30 PT 14.1 Sec. (12.2-14.9) 01/17/17 04:10 INR 1.04 (0.87-1.13) 01/17/17 04:10 APTT 36.6 Sec. (24.2-36.6) 01/17/17 04:10 POC ABG pH 7.442 (7.35-7.45) 01/31/17 18:55 ABG pH 7.420 pH Units (7.350-7.450) 01/17/17 04:35 POC ABG pCO2 32.8 (35-45) L 01/31/17 18:55 ABG pCO2 34.5 mm Hg 01/17/17 04:35 POC ABG pO2 82 (80-105) 01/31/17 18:55 ABG pO2 160.3 mm Hg (80.0-90.0) H 01/17/17 04:35 POC ABG HCO3 22.4 01/31/17 18:55 ABG HCO3 21.9 mmol/L (20.0-26.0) 01/17/17 04:35 POC ABG Total CO2 23 01/31/17 18:55 POC ABG O2 Sat 97 01/31/17 18:55 ABG O2 Saturation 99.0 % (95.0-99.0) 01/17/17 04:35 ABG O2 Content 11.1 (0.0-44) 01/17/17 04:35 POC ABG Base Excess -2 01/31/17 18:55 ABG Base Excess -2.3 mmol/L (-2.0-3.0) L 01/17/17 04:35 ABG Hemoglobin 7.9 gm/dl (14.0-18.0) L 01/17/17 04:35 ABG Carboxyhemoglobin 1.5 % (0.0-5.0) 01/17/17 04:35 ABG Methemoglobin 0.5 % (0.0-1.5) 01/17/17 04:35 VBG pH 7.284 (7.320-7.420) L 01/09/17 10:16 Oxyhemoglobin 97.1 % (95.0-99.0) 01/17/17 04:35 FiO2 25 % 01/31/17 18:55 Sodium 137 mmol/L (137-145) 02/09/17 07:24 Potassium 4.9 mmol/L (3.6-5.0) 02/09/17 07:24 Chloride 95.5 mmol/L (98-107) L 02/09/17 07:24 Carbon Dioxide 29 mmol/L (22-30) 02/09/17 07:24 Anion Gap 17 mmol/L 02/09/17 07:24 BUN 52 mg/dL (9-20) H 02/09/17 07:24 Creatinine 0.8 mg/dL (0.8-1.5) 02/09/17 07:24 Estimated GFR > 60 ml/min 02/09/17 07:24 BUN/Creatinine Ratio 65 % 02/09/17 07:24 Glucose 277 mg/dL (75-100) H 02/09/17 07:24 POC Glucose 233 (70-105) H 02/10/17 11:21 Lactic Acid 0.80 mmol/L (0.7-2.0) 01/30/17 11:49 Calcium 9.4 mg/dL (8.4-10.2) 02/09/17 07:24 Phosphorus 3.60 mg/dL (2.5-4.5) 01/22/17 04:00 Magnesium 2.10 mg/dL (1.7-2.3) 01/22/17 04:00 Total Bilirubin 0.30 mg/dL (0.1-1.2) 01/22/17 04:00 AST 44 units/L (5-40) H 01/22/17 04:00 ALT 23 units/L (7-56) 01/22/17 04:00 Alkaline Phosphatase 379 units/L (35-129) H 01/22/17 04:00 Ammonia 35.0 umol/L (25-60) 01/09/17 10:16 Total Creatine Kinase 135 units/L (55-170) 01/09/17 10:16 CK-MB (CK-2) 7.1 ng/mL (0.0-4.0) H 01/09/17 10:16 CK-MB (CK-2) Rel Index 5.2 (0-4) H 01/09/17 10:16 Troponin T < 0.010 ng/mL (0.00-0.029) 01/09/17 10:16 NT-Pro-B Natriuret Pep 602.9 pg/mL (0-900) 01/09/17 10:16 Total Protein 7.9 g/dL (6.3-8.2) 01/22/17 04:00 Albumin 2.7 g/dL (3.9-5) L 01/22/17 04:00 Albumin/Globulin Ratio 0.5 % 01/22/17 04:00 TSH 52.800 mlU/mL (0.270-4.200) H 01/09/17 10:16 Free T4 0.78 ng/dL (0.76-1.46) 01/09/17 10:16 Total Cortisol 54.8 mcg/dL () 01/09/17 16:19 Urine Color Yellow (Yellow) 01/28/17 17:52 Urine Turbidity Clear (Clear) 01/28/17 17:52 Urine pH 6.0 (5.0-7.0) 01/28/17 17:52 Ur Specific [place] 1.016 (1.003-1.030) 01/28/17 17:52 Urine Protein 100 mg/dl mg/dL (Negative) 01/28/17 17:52 Urine Glucose (UA) >=500 mg/dL (Negative) 01/28/17 17:52 Urine Ketones Neg mg/dL (Negative) 01/28/17 17:52 Urine Blood Sm (Negative) 01/28/17 17:52 Urine Nitrite Neg (Negative) 01/28/17 17:52 Urine Bilirubin Neg (Negative) 01/28/17 17:52 Urine Urobilinogen < 2.0 mg/dL (<2.0) 01/28/17 17:52 Ur Leukocyte Esterase Lg (Negative) 01/28/17 17:52 Urine WBC (Auto) > 182.0 /HPF (0.0-6.0) H 01/28/17 17:52 Urine RBC (Auto) 113.0 /HPF (0.0-6.0) 01/28/17 17:52 Urine Bacteria (Auto) 2+ /HPF (Negative) 01/28/17 17:52 Urine WBC Clumps 3+ /HPF 01/28/17 17:52 Urine Mucus Few /HPF 01/14/17 14:07 Urine Yeast ([place]) 3+ /HPF 01/14/17 14:07 Salicylates < 0.3 mg/dL (2.8-20.0) L 01/09/17 10:16 Urine Opiates Screen Presumptive negative 01/09/17 10:23 Urine Methadone Screen Presumptive negative 01/09/17 10:23 Acetaminophen < 15.0 ug/mL (10.0-30.0) 01/09/17 10:16 Ur Barbiturates Screen Presumptive negative 01/09/17 10:23 Ur Phencyclidine Scrn Presumptive negative 01/09/17 10:23 Ur Amphetamines Screen Presumptive negative 01/09/17 10:23 U Benzodiazepines Scrn Presumptive negative 01/09/17 10:23 Urine Cocaine Screen Presumptive negative 01/09/17 10:23 U Marijuana (THC) Screen Presumptive negative 01/09/17 10:23 Drugs of Abuse Note Disclamer 01/09/17 10:23 Plasma/Serum Alcohol < 0.01 gm% (0-0.07) 01/09/17 10:16
--- NOTE | 2017-02-10 14:44 | Progress Note ---
Assessment and Plan Imp: 1. Hypoglycemia/hypothermia -> suspect due to too much insulin 2. Hypothyroidism; doubt myxedema coma with normal free T4 3. Acute respiratory failure, hypoxia 4. UTI/SIRS 5. Metabolic encephalopathy Rec: 1. GI/DVT PPx/TFs 2. Reviewed chart; ethics note 01/18/17 recommended AND and "hospice"; trying to get guardianship to sign necessary orders for this (however, I was told they are not willing to sign for withdrawal of ventilator); further care felt to be futile and would only prolong potential suffering without affecting ultimate outcome 3. Comfort care, no escalation of care; would not check any further labs, etc. 4. Poor prognosis Unable to locate family. Subjective Date of service: 02/10/17 Principal diagnosis: Acute respiratory failure,encephalopathy Interval history: No events. On vent. Unresponsive. Active Medications Acetaminophen (Tylenol) 650 mg FEEDTUBE Q6H PRN PRN Reason: Non Cardiac Pain Or Temp>101 Last Admin: 02/09/17 22:50 Dose: 650 mg Lipase/Protease/Amylase (Pancreaze Dr 10,500 Unit) 1 each FEEDTUBE PRN PRN PRN Reason: For Clogged Feeding Tube Dextrose (D50w (25gm) Vial) 50 gm IV PRN PRN PRN Reason: Hypoglycemia Famotidine (Pepcid) 20 mg PO BID [facility] Last Admin: 02/10/17 10:01 Dose: 20 mg Heparin Sodium (Porcine) (Heparin) 5,000 unit SUB-Q Q12HR [facility] Last Admin: 02/10/17 10:01 Dose: 5,000 unit Hydralazine HCl (Apresoline) 10 mg IV Q4HR PRN PRN Reason: Hypertension Last Admin: 02/02/17 06:14 Dose: 10 mg Hydrophilic Ointment (Vaseline Lip Therapy) 1 applic TP Q2HR PRN PRN Reason: Dry Lips Insulin Aspart (Novolog) 0 units SUB-Q Q6HR [facility] PRN Reason: Protocol Last Admin: 02/10/17 12:34 Dose: 3 units Insulin Detemir (Levemir) 10 units SUB-Q DAILY [facility] Last Admin: 02/10/17 10:00 Dose: 10 units Labetalol HCl (Normodyne) 200 mg PO BID [facility] Last Admin: 02/10/17 10:01 Dose: 200 mg Levothyroxine Sodium (Synthroid) 100 mcg PO DAILY@0600 [facility] Last Admin: 02/10/17 07:03 Dose: 100 mcg Loperamide HCl (Imodium A-D) 2 mg PO Q2H PRN PRN Reason: Diarrhea Last Admin: 02/08/17 09:36 Dose: 2 mg Multi-Ingred Cream/Lotion/Oil/Oint (Artificial Tears Ophth Oint) 1 applic OU Q4HR PRN PRN Reason: Dry Eye(s) Simple Syrup (Simple Syrup) 15 ml FEEDTUBE PRN PRN PRN Reason: Hypoglycemia Last Admin: 01/31/17 23:19 Dose: 15 ml Simple Syrup (Simple Syrup) 30 ml FEEDTUBE PRN PRN PRN Reason: Hypoglycemia Sodium Bicarbonate (Sodium Bicarbonate) 325 mg FEEDTUBE PRN PRN PRN Reason: For Clogged Feeding Tube Objective Vital Signs - 12hr 02/10/17 02/10/17 02/10/17 03:00 03:56 04:00 Temperature 97.0 F L Pulse Rate 66 61 68 Pulse Rate [ 68 From Monitor] Respiratory 12 12 Rate Blood Pressure 128/80 135/83 127/78 O2 Sat by Pulse 100 99 99 Oximetry 02/10/17 02/10/17 02/10/17 05:00 06:00 07:00 Temperature Pulse Rate 71 76 73 Pulse Rate [ From Monitor] Respiratory 13 15 12 Rate Blood Pressure 138/82 135/83 120/70 O2 Sat by Pulse 100 100 97 Oximetry 02/10/17 02/10/17 02/10/17 07:56 08:00 08:20 Temperature 98.7 F Pulse Rate 68 71 Pulse Rate [ From Monitor] Respiratory 12 24 Rate Blood Pressure 145/80 145/80 O2 Sat by Pulse 100 Oximetry 02/10/17 02/10/17 02/10/17 09:00 10:00 10:01 Temperature Pulse Rate 71 69 70 Pulse Rate [ From Monitor] Respiratory 24 12 Rate Blood Pressure 144/75 130/72 135/75 O2 Sat by Pulse 100 100 Oximetry 02/10/17 02/10/17 02/10/17 11:00 11:39 12:00 Temperature 100.3 F H Pulse Rate 68 Pulse Rate [ From Monitor] Respiratory 21 Rate Blood Pressure 112/71 127/77 O2 Sat by Pulse 100 100 Oximetry 1102/10/17 02/10/17 13:00 13:21 14:00 Temperature Pulse Rate 63 64 63 Pulse Rate [ From Monitor] Respiratory 23 19 19 Rate Blood Pressure 126/81 126/81 132/86 O2 Sat by Pulse 100 100 100 Oximetry Constitutional: comatose, other (orally intubated, on vent) Eyes: non-icteric ENT: oropharynx moist Neck: supple Effort: normal Ascultation: Bilateral: clear Cardiovascular: regular rate and rhythm (no mrg) Gastrointestinal: normoactive bowel sounds, soft, non-tender, non-distended Integumentary: normal Extremities: no cyanosis, no edema, pink and warm Neurologic: other (unresponsive, flaccid extremities) Psychiatric: other (unable to obtain) CBC and BMP: 02/09/17 07:24 02/09/17 07:24 ABG, PT/INR, D-dimer: ABG POC ABG pH 7.442 (7.35-7.45) 01/31/17 18:55 ABG pH 7.420 pH Units (7.350-7.450) 01/17/17 04:35 POC ABG pCO2 32.8 (35-45) L 01/31/17 18:55 ABG pCO2 34.5 mm Hg 01/17/17 04:35 POC ABG pO2 82 (80-105) 01/31/17 18:55 ABG pO2 160.3 mm Hg (80.0-90.0) H 01/17/17 04:35 POC ABG HCO3 22.4 01/31/17 18:55 POC ABG Total CO2 23 01/31/17 18:55 POC ABG O2 Sat 97 01/31/17 18:55 ABG O2 Saturation 99.0 % (95.0-99.0) 01/17/17 04:35 PT/INR, D-dimer PT 14.1 Sec. (12.2-14.9) 01/17/17 04:10 INR 1.04 (0.87-1.13) 01/17/17 04:10 Abnormal lab findings: Abnormal Labs 01/09/17 01/09/17 01/09/17 12:49 13:13 14:21 WBC RBC Hgb Hct MCV MCH RDW Plt Count Lymph % (Auto) S[place] % (Auto) Eos % (Auto) Seg Neutrophils % Seg Neuts % (Manual) Lymphocytes % (Manual) Seg Neutrophils # Seg Neutrophils # Man Lymphocytes # (Manual) POC ABG pH ABG pH POC ABG pCO2 POC ABG pO2 ABG pO2 ABG HCO3 ABG Base Excess ABG Hemoglobin Oxyhemoglobin Sodium Potassium Chloride Carbon Dioxide BUN Creatinine Glucose POC Glucose < 40 L 128 H 65 L Lactic Acid Calcium AST Alkaline Phosphatase Albumin Urine WBC (Auto) 01/09/17 01/09/17 01/09/17 15:09 16:28 17:14 WBC RBC Hgb Hct MCV MCH RDW Plt Count Lymph % (Auto) [place] % (Auto) Eos % (Auto) Seg Neutrophils % Seg Neuts % (Manual) Lymphocytes % (Manual) Seg Neutrophils # Seg Neutrophils # Man Lymphocytes # (Manual) POC ABG pH ABG pH POC ABG pCO2 POC ABG pO2 ABG pO2 ABG HCO3 ABG Base Excess ABG Hemoglobin Oxyhemoglobin Sodium Potassium Chloride Carbon Dioxide BUN Creatinine Glucose POC Glucose 120 H 44 L 112 H Lactic Acid Calcium AST Alkaline Phosphatase Albumin Urine WBC (Auto) 01/10/17 01/10/17 01/10/17 04:30 04:30 05:41 WBC 24.1 H RBC 3.38 L Hgb 8.5 L Hct 26.0 L MCV 77 L MCH 25 L RDW 17.9 H Plt Count 474 H Lymph % (Auto) [place] % (Auto) Eos % (Auto) Seg Neutrophils % Seg Neuts % (Manual) 88.0 H Lymphocytes % (Manual) 4.0 L Seg Neutrophils # Seg Neutrophils # Man 21.2 H Lymphocytes # (Manual) 1.0 L POC ABG pH ABG pH POC ABG pCO2 POC ABG pO2 ABG pO2 ABG HCO3 ABG Base Excess ABG Hemoglobin Oxyhemoglobin Sodium Potassium Chloride Carbon Dioxide 17 L BUN 27 H Creatinine Glucose POC Glucose 68 L Lactic Acid Calcium 7.5 L AST Alkaline Phosphatase Albumin Urine WBC (Auto) 01/10/17 01/10/17 01/10/17 05:45 07:47 10:50 WBC RBC Hgb Hct MCV MCH RDW Plt Count Lymph % (Auto) [place] % (Auto) Eos % (Auto) Seg Neutrophils % Seg Neuts % (Manual) Lymphocytes % (Manual) Seg Neutrophils # Seg Neutrophils # Man Lymphocytes # (Manual) POC ABG pH ABG pH POC ABG pCO2 26.6 L POC ABG pO2 207 H ABG pO2 ABG HCO3 ABG Base Excess ABG Hemoglobin Oxyhemoglobin Sodium Potassium Chloride Carbon Dioxide BUN Creatinine Glucose POC Glucose 148 H 165 H Lactic Acid Calcium AST Alkaline Phosphatase Albumin Urine WBC (Auto) 01/10/17 01/10/17 01/10/17 13:41 20:20 21:39 WBC RBC Hgb Hct MCV MCH RDW Plt Count Lymph % (Auto) [place] % (Auto) Eos % (Auto) Seg Neutrophils % Seg Neuts % (Manual) Lymphocytes % (Manual) Seg Neutrophils # Seg Neutrophils # Man Lymphocytes # (Manual) POC ABG pH ABG pH POC ABG pCO2 POC ABG pO2 ABG pO2 ABG HCO3 ABG Base Excess ABG Hemoglobin Oxyhemoglobin Sodium Potassium Chloride Carbon Dioxide BUN Creatinine Glucose POC Glucose 114 H 150 H 175 H Lactic Acid Calcium AST Alkaline Phosphatase Albumin Urine WBC (Auto) 01/10/17 01/11/17 01/11/17 23:24 00:19 04:06 WBC RBC Hgb Hct MCV MCH RDW Plt Count Lymph % (Auto) [place] % (Auto) Eos % (Auto) Seg Neutrophils % Seg Neuts % (Manual) Lymphocytes % (Manual) Seg Neutrophils # Seg Neutrophils # Man Lymphocytes # (Manual) POC ABG pH 7.463 H ABG pH POC ABG pCO2 26.2 L POC ABG pO2 185 H ABG pO2 ABG HCO3 ABG Base Excess ABG Hemoglobin Oxyhemoglobin Sodium Potassium Chloride Carbon Dioxide BUN Creatinine Glucose POC Glucose 155 H 163 H Lactic Acid Calcium AST Alkaline Phosphatase Albumin Urine WBC (Auto) 01/11/17 01/11/17 01/11/17 05:20 05:20 06:21 WBC 15.2 H RBC 3.40 L Hgb 8.9 L Hct 26.3 L MCV 78 L MCH 26 L RDW 18.6 H Plt Count 462 H Lymph % (Auto) 13.2 L [place] % (Auto) Eos % (Auto) Seg Neutrophils % 80.8 H Seg Neuts % (Manual) Lymphocytes % (Manual) Seg Neutrophils # 12.3 H Seg Neutrophils # Man Lymphocytes # (Manual) POC ABG pH ABG pH POC ABG pCO2 POC ABG pO2 ABG pO2 ABG HCO3 ABG Base Excess ABG Hemoglobin Oxyhemoglobin Sodium Potassium 3.4 L Chloride 111.5 H Carbon Dioxide 17 L BUN Creatinine Glucose 147 H POC Glucose 139 H Lactic Acid Calcium 8.0 L AST Alkaline Phosphatase Albumin Urine WBC (Auto) 01/11/17 01/11/17 01/11/17 07:57 11:46 16:50 WBC RBC Hgb Hct MCV MCH RDW Plt Count Lymph % (Auto) [place] % (Auto) Eos % (Auto) Seg Neutrophils % Seg Neuts % (Manual) Lymphocytes % (Manual) Seg Neutrophils # Seg Neutrophils # Man Lymphocytes # (Manual) POC ABG pH ABG pH POC ABG pCO2 POC ABG pO2 ABG pO2 ABG HCO3 ABG Base Excess ABG Hemoglobin Oxyhemoglobin Sodium Potassium Chloride Carbon Dioxide BUN Creatinine Glucose POC Glucose 188 H 199 H 235 H Lactic Acid Calcium AST Alkaline Phosphatase Albumin Urine WBC (Auto) 01/11/17 01/12/17 01/12/17 23:15 05:02 06:56 WBC RBC Hgb Hct MCV MCH RDW Plt Count Lymph % (Auto) [place] % (Auto) Eos % (Auto) Seg Neutrophils % Seg Neuts % (Manual) Lymphocytes % (Manual) Seg Neutrophils # Seg Neutrophils # Man Lymphocytes # (Manual) POC ABG pH ABG pH POC ABG pCO2 28.0 L POC ABG pO2 178 H ABG pO2 ABG HCO3 ABG Base Excess ABG Hemoglobin Oxyhemoglobin Sodium Potassium Chloride Carbon Dioxide BUN Creatinine Glucose POC Glucose 155 H 119 H Lactic Acid Calcium AST Alkaline Phosphatase Albumin Urine WBC (Auto) 01/12/17 01/13/17 01/13/17 14:50 03:37 03:37 WBC RBC 3.61 L Hgb 9.3 L Hct 28.0 L MCV 78 L MCH 26 L RDW 18.2 H Plt Count Lymph % (Auto) [place] % (Auto) Eos % (Auto) Seg Neutrophils % Seg Neuts % (Manual) Lymphocytes % (Manual) Seg Neutrophils # Seg Neutrophils # Man Lymphocytes # (Manual) POC ABG pH ABG pH POC ABG pCO2 POC ABG pO2 ABG pO2 ABG HCO3 ABG Base Excess ABG Hemoglobin Oxyhemoglobin Sodium Potassium Chloride 112.4 H Carbon Dioxide 19 L BUN Creatinine Glucose 118 H POC Glucose 164 H Lactic Acid Calcium 8.0 L AST Alkaline Phosphatase Albumin Urine WBC (Auto) 01/13/17 01/13/17 01/13/17 04:26 06:15 11:50 WBC RBC Hgb Hct MCV MCH RDW Plt Count Lymph % (Auto) [place] % (Auto) Eos % (Auto) Seg Neutrophils % Seg Neuts % (Manual) Lymphocytes % (Manual) Seg Neutrophils # Seg Neutrophils # Man Lymphocytes # (Manual) POC ABG pH 7.485 H ABG pH POC ABG pCO2 25.4 L POC ABG pO2 73 L ABG pO2 ABG HCO3 ABG Base Excess ABG Hemoglobin Oxyhemoglobin Sodium Potassium Chloride Carbon Dioxide BUN Creatinine Glucose POC Glucose 116 H 171 H Lactic Acid Calcium AST Alkaline Phosphatase Albumin Urine WBC (Auto) 01/13/17 01/14/17 01/14/17 17:31 00:02 04:50 WBC RBC 3.32 L Hgb 8.5 L Hct 26.1 L MCV 79 L MCH 26 L RDW 18.2 H Plt Count Lymph % (Auto) [place] % (Auto) 9.0 H Eos % (Auto) Seg Neutrophils % Seg Neuts % (Manual) Lymphocytes % (Manual) Seg Neutrophils # Seg Neutrophils # Man Lymphocytes # (Manual) POC ABG pH ABG pH POC ABG pCO2 POC ABG pO2 ABG pO2 ABG HCO3 ABG Base Excess ABG Hemoglobin Oxyhemoglobin Sodium Potassium Chloride Carbon Dioxide BUN Creatinine Glucose POC Glucose 203 H 157 H Lactic Acid Calcium AST Alkaline Phosphatase Albumin Urine WBC (Auto) 01/14/17 01/14/17 01/14/17 04:50 05:10 11:27 WBC RBC Hgb Hct MCV MCH RDW Plt Count Lymph % (Auto) [place] % (Auto) Eos % (Auto) Seg Neutrophils % Seg Neuts % (Manual) Lymphocytes % (Manual) Seg Neutrophils # Seg Neutrophils # Man Lymphocytes # (Manual) POC ABG pH ABG pH POC ABG pCO2 POC ABG pO2 ABG pO2 ABG HCO3 ABG Base Excess ABG Hemoglobin Oxyhemoglobin Sodium Potassium Chloride 112.5 H Carbon Dioxide BUN Creatinine Glucose 149 H POC Glucose 176 H 147 H Lactic Acid Calcium 8.1 L AST Alkaline Phosphatase Albumin Urine WBC (Auto) 01/14/17 01/14/17 01/15/17 14:07 16:52 00:04 WBC RBC Hgb Hct MCV MCH RDW Plt Count Lymph % (Auto) [place] % (Auto) Eos % (Auto) Seg Neutrophils % Seg Neuts % (Manual) Lymphocytes % (Manual) Seg Neutrophils # Seg Neutrophils # Man Lymphocytes # (Manual) POC ABG pH ABG pH POC ABG pCO2 POC ABG pO2 ABG pO2 ABG HCO3 ABG Base Excess ABG Hemoglobin Oxyhemoglobin Sodium Potassium Chloride Carbon Dioxide BUN Creatinine Glucose POC Glucose 131 H 193 H Lactic Acid Calcium AST Alkaline Phosphatase Albumin Urine WBC (Auto) 53.0 H 01/15/17 01/15/17 01/15/17 05:26 11:49 17:47 WBC RBC Hgb Hct MCV MCH RDW Plt Count Lymph % (Auto) [place] % (Auto) Eos % (Auto) Seg Neutrophils % Seg Neuts % (Manual) Lymphocytes % (Manual) Seg Neutrophils # Seg Neutrophils # Man Lymphocytes # (Manual) POC ABG pH ABG pH POC ABG pCO2 POC ABG pO2 ABG pO2 ABG HCO3 ABG Base Excess ABG Hemoglobin Oxyhemoglobin Sodium Potassium Chloride Carbon Dioxide BUN Creatinine Glucose POC Glucose 215 H 121 H 211 H Lactic Acid Calcium AST Alkaline Phosphatase Albumin Urine WBC (Auto) 01/15/17 01/16/17 01/16/17 21:33 04:30 05:28 WBC RBC Hgb Hct MCV MCH RDW Plt Count Lymph % (Auto) [place] % (Auto) Eos % (Auto) Seg Neutrophils % Seg Neuts % (Manual) Lymphocytes % (Manual) Seg Neutrophils # Seg Neutrophils # Man Lymphocytes # (Manual) POC ABG pH ABG pH 7.457 H POC ABG pCO2 POC ABG pO2 ABG pO2 55.1 L ABG HCO3 19.4 L ABG Base Excess -4.0 L ABG Hemoglobin 6.8 L Oxyhemoglobin 94.9 L Sodium Potassium Chloride Carbon Dioxide BUN Creatinine Glucose POC Glucose 275 H 271 H Lactic Acid Calcium AST Alkaline Phosphatase Albumin Urine WBC (Auto) 01/16/17 01/16/17 01/17/17 13:45 21:39 04:10 WBC 4.4 L RBC 2.98 L Hgb 7.7 L Hct 23.3 L MCV 78 L MCH 26 L RDW 18.1 H Plt Count Lymph % (Auto) [place] % (Auto) Eos % (Auto) Seg Neutrophils % Seg Neuts % (Manual) Lymphocytes % (Manual) Seg Neutrophils # Seg Neutrophils # Man Lymphocytes # (Manual) POC ABG pH ABG pH POC ABG pCO2 POC ABG pO2 ABG pO2 ABG HCO3 ABG Base Excess ABG Hemoglobin Oxyhemoglobin Sodium Potassium Chloride Carbon Dioxide BUN Creatinine Glucose POC Glucose 236 H 258 H Lactic Acid Calcium AST Alkaline Phosphatase Albumin Urine WBC (Auto) 01/17/17 01/17/1717 04:10 04:35 12:23 WBC RBC Hgb Hct MCV MCH RDW Plt Count Lymph % (Auto) [place] % (Auto) Eos % (Auto) Seg Neutrophils % Seg Neuts % (Manual) Lymphocytes % (Manual) Seg Neutrophils # Seg Neutrophils # Man Lymphocytes # (Manual) POC ABG pH ABG pH POC ABG pCO2 POC ABG pO2 ABG pO2 160.3 H ABG HCO3 ABG Base Excess -2.3 L ABG Hemoglobin 7.9 L Oxyhemoglobin Sodium Potassium 3.3 L Chloride 108.7 H Carbon Dioxide 20 L BUN 8 L Creatinine Glucose 202 H POC Glucose 321 H Lactic Acid Calcium 7.6 L AST Alkaline Phosphatase Albumin Urine WBC (Auto) 01/17/17 01/18/17 01/18/17 16:01 05:07 12:09 WBC RBC Hgb Hct MCV MCH RDW Plt Count Lymph % (Auto) [place] % (Auto) Eos % (Auto) Seg Neutrophils % Seg Neuts % (Manual) Lymphocytes % (Manual) Seg Neutrophils # Seg Neutrophils # Man Lymphocytes # (Manual) POC ABG pH ABG pH POC ABG pCO2 POC ABG pO2 ABG pO2 ABG HCO3 ABG Base Excess ABG Hemoglobin Oxyhemoglobin Sodium Potassium Chloride Carbon Dioxide BUN Creatinine Glucose POC Glucose 239 H 155 H 203 H Lactic Acid Calcium AST Alkaline Phosphatase Albumin Urine WBC (Auto) 01/18/17 01/18/17 01/19/17 17:54 23:43 04:28 WBC RBC Hgb Hct MCV MCH RDW Plt Count Lymph % (Auto) [place] % (Auto) Eos % (Auto) Seg Neutrophils % Seg Neuts % (Manual) Lymphocytes % (Manual) Seg Neutrophils # Seg Neutrophils # Man Lymphocytes # (Manual) POC ABG pH ABG pH POC ABG pCO2 POC ABG pO2 ABG pO2 ABG HCO3 ABG Base Excess ABG Hemoglobin Oxyhemoglobin Sodium Potassium Chloride Carbon Dioxide BUN Creatinine Glucose POC Glucose 132 H 125 H 182 H Lactic Acid Calcium AST Alkaline Phosphatase Albumin Urine WBC (Auto) 01/19/17 01/19/17 01/20/17 12:11 17:23 00:12 WBC RBC Hgb Hct MCV MCH RDW Plt Count Lymph % (Auto) [place] % (Auto) Eos % (Auto) Seg Neutrophils % Seg Neuts % (Manual) Lymphocytes % (Manual) Seg Neutrophils # Seg Neutrophils # Man Lymphocytes # (Manual) POC ABG pH ABG pH POC ABG pCO2 POC ABG pO2 ABG pO2 ABG HCO3 ABG Base Excess ABG Hemoglobin Oxyhemoglobin Sodium Potassium Chloride Carbon Dioxide BUN Creatinine Glucose POC Glucose 153 H 66 L 139 H Lactic Acid Calcium AST Alkaline Phosphatase Albumin Urine WBC (Auto) 01/20/17 01/20/17 01/20/17 05:44 11:48 17:42 WBC RBC Hgb Hct MCV MCH RDW Plt Count Lymph % (Auto) [place] % (Auto) Eos % (Auto) Seg Neutrophils % Seg Neuts % (Manual) Lymphocytes % (Manual) Seg Neutrophils # Seg Neutrophils # Man Lymphocytes # (Manual) POC ABG pH ABG pH POC ABG pCO2 POC ABG pO2 ABG pO2 ABG HCO3 ABG Base Excess ABG Hemoglobin Oxyhemoglobin Sodium Potassium Chloride Carbon Dioxide BUN Creatinine Glucose POC Glucose 176 H 218 H 132 H Lactic Acid Calcium AST Alkaline Phosphatase Albumin Urine WBC (Auto) 01/20/17 01/21/17 01/21/17 23:43 05:34 11:17 WBC RBC Hgb Hct MCV MCH RDW Plt Count Lymph % (Auto) [place] % (Auto) Eos % (Auto) Seg Neutrophils % Seg Neuts % (Manual) Lymphocytes % (Manual) Seg Neutrophils # Seg Neutrophils # Man Lymphocytes # (Manual) POC ABG pH ABG pH POC ABG pCO2 POC ABG pO2 ABG pO2 ABG HCO3 ABG Base Excess ABG Hemoglobin Oxyhemoglobin Sodium Potassium Chloride Carbon Dioxide BUN Creatinine Glucose POC Glucose 178 H 106 H 213 H Lactic Acid Calcium AST Alkaline Phosphatase Albumin Urine WBC (Auto) 01/21/17 01/22/17 01/22/17 23:37 04:00 04:00 WBC RBC 3.26 L Hgb 8.3 L Hct 25.5 L MCV 78 L MCH 25 L RDW 17.9 H Plt Count Lymph % (Auto) [place] % (Auto) 7.9 H Eos % (Auto) 6.2 H Seg Neutrophils % Seg Neuts % (Manual) Lymphocytes % (Manual) Seg Neutrophils # Seg Neutrophils # Man Lymphocytes # (Manual) POC ABG pH ABG pH POC ABG pCO2 POC ABG pO2 ABG pO2 ABG HCO3 ABG Base Excess ABG Hemoglobin Oxyhemoglobin Sodium Potassium Chloride 95.5 L Carbon Dioxide 31 H D BUN Creatinine Glucose 134 H POC Glucose 140 H Lactic Acid Calcium AST 44 H Alkaline Phosphatase 379 H Albumin 2.7 L Urine WBC (Auto) 01/22/17 01/22/17 01/22/17 04:58 12:12 18:12 WBC RBC Hgb Hct MCV MCH RDW Plt Count Lymph % (Auto) [place] % (Auto) Eos % (Auto) Seg Neutrophils % Seg Neuts % (Manual) Lymphocytes % (Manual) Seg Neutrophils # Seg Neutrophils # Man Lymphocytes # (Manual) POC ABG pH ABG pH POC ABG pCO2 POC ABG pO2 ABG pO2 ABG HCO3 ABG Base Excess ABG Hemoglobin Oxyhemoglobin Sodium Potassium Chloride Carbon Dioxide BUN Creatinine Glucose POC Glucose 146 H 255 H 182 H Lactic Acid Calcium AST Alkaline Phosphatase Albumin Urine WBC (Auto) 01/22/17 01/23/17 01/23/17 23:39 04:43 12:12 WBC RBC Hgb Hct MCV MCH RDW Plt Count Lymph % (Auto) [place] % (Auto) Eos % (Auto) Seg Neutrophils % Seg Neuts % (Manual) Lymphocytes % (Manual) Seg Neutrophils # Seg Neutrophils # Man Lymphocytes # (Manual) POC ABG pH ABG pH POC ABG pCO2 POC ABG pO2 ABG pO2 ABG HCO3 ABG Base Excess ABG Hemoglobin Oxyhemoglobin Sodium Potassium Chloride Carbon Dioxide BUN Creatinine Glucose POC Glucose 134 H 218 H 128 H Lactic Acid Calcium AST Alkaline Phosphatase Albumin Urine WBC (Auto) 01/23/17 01/24/17 01/24/17 17:36 00:08 05:16 WBC RBC Hgb Hct MCV MCH RDW Plt Count Lymph % (Auto) [place] % (Auto) Eos % (Auto) Seg Neutrophils % Seg Neuts % (Manual) Lymphocytes % (Manual) Seg Neutrophils # Seg Neutrophils # Man Lymphocytes # (Manual) POC ABG pH ABG pH POC ABG pCO2 POC ABG pO2 ABG pO2 ABG HCO3 ABG Base Excess ABG Hemoglobin Oxyhemoglobin Sodium Potassium Chloride Carbon Dioxide BUN Creatinine Glucose POC Glucose 156 H 129 H 169 H Lactic Acid Calcium AST Alkaline Phosphatase Albumin Urine WBC (Auto) 01/24/17 01/24/17 01/24/17 11:40 17:43 23:23 WBC RBC Hgb Hct MCV MCH RDW Plt Count Lymph % (Auto) [place] % (Auto) Eos % (Auto) Seg Neutrophils % Seg Neuts % (Manual) Lymphocytes % (Manual) Seg Neutrophils # Seg Neutrophils # Man Lymphocytes # (Manual) POC ABG pH ABG pH POC ABG pCO2 POC ABG pO2 ABG pO2 ABG HCO3 ABG Base Excess ABG Hemoglobin Oxyhemoglobin Sodium Potassium Chloride Carbon Dioxide BUN Creatinine Glucose POC Glucose 187 H 215 H 222 H Lactic Acid Calcium AST Alkaline Phosphatase Albumin Urine WBC (Auto) 01/25/17 01/25/17 01/25/17 04:56 11:52 17:37 WBC RBC Hgb Hct MCV MCH RDW Plt Count Lymph % (Auto) [place] % (Auto) Eos % (Auto) Seg Neutrophils % Seg Neuts % (Manual) Lymphocytes % (Manual) Seg Neutrophils # Seg Neutrophils # Man Lymphocytes # (Manual) POC ABG pH ABG pH POC ABG pCO2 POC ABG pO2 ABG pO2 ABG HCO3 ABG Base Excess ABG Hemoglobin Oxyhemoglobin Sodium Potassium Chloride Carbon Dioxide BUN Creatinine Glucose POC Glucose 210 H 284 H 218 H Lactic Acid Calcium AST Alkaline Phosphatase Albumin Urine WBC (Auto) 01/26/17 01/26/17 01/26/17 00:02 05:33 12:17 WBC RBC Hgb Hct MCV MCH RDW Plt Count Lymph % (Auto) [place] % (Auto) Eos % (Auto) Seg Neutrophils % Seg Neuts % (Manual) Lymphocytes % (Manual) Seg Neutrophils # Seg Neutrophils # Man Lymphocytes # (Manual) POC ABG pH ABG pH POC ABG pCO2 POC ABG pO2 ABG pO2 ABG HCO3 ABG Base Excess ABG Hemoglobin Oxyhemoglobin Sodium Potassium Chloride Carbon Dioxide BUN Creatinine Glucose POC Glucose 192 H 199 H 227 H Lactic Acid Calcium AST Alkaline Phosphatase Albumin Urine WBC (Auto) 01/26/17 01/26/17 01/27/17 17:50 23:57 05:31 WBC RBC Hgb Hct MCV MCH RDW Plt Count Lymph % (Auto) [place] % (Auto) Eos % (Auto) Seg Neutrophils % Seg Neuts % (Manual) Lymphocytes % (Manual) Seg Neutrophils # Seg Neutrophils # Man Lymphocytes # (Manual) POC ABG pH ABG pH POC ABG pCO2 POC ABG pO2 ABG pO2 ABG HCO3 ABG Base Excess ABG Hemoglobin Oxyhemoglobin Sodium Potassium Chloride Carbon Dioxide BUN Creatinine Glucose POC Glucose 229 H 186 H 285 H Lactic Acid Calcium AST Alkaline Phosphatase Albumin Urine WBC (Auto) 01/27/17 01/27/17 01/27/17 11:42 17:47 23:58 WBC RBC Hgb Hct MCV MCH RDW Plt Count Lymph % (Auto) [place] % (Auto) Eos % (Auto) Seg Neutrophils % Seg Neuts % (Manual) Lymphocytes % (Manual) Seg Neutrophils # Seg Neutrophils # Man Lymphocytes # (Manual) POC ABG pH ABG pH POC ABG pCO2 POC ABG pO2 ABG pO2 ABG HCO3 ABG Base Excess ABG Hemoglobin Oxyhemoglobin Sodium Potassium Chloride Carbon Dioxide BUN Creatinine Glucose POC Glucose 260 H 329 H 225 H Lactic Acid Calcium AST Alkaline Phosphatase Albumin Urine WBC (Auto) 01/27/17 01/27/17 01/28/17 Unknown Unknown 03:44 WBC 12.1 H RBC 3.28 L 3.14 L Hgb 8.5 L 8.2 L Hct 25.5 L 24.1 L MCV 78 L 77 L MCH 26 L 26 L RDW 16.8 H 16.9 H Plt Count 601 H 567 H Lymph % (Auto) [place] % (Auto) Eos % (Auto) Seg Neutrophils % Seg Neuts % (Manual) Lymphocytes % (Manual) Seg Neutrophils # Seg Neutrophils # Man Lymphocytes # (Manual) POC ABG pH ABG pH POC ABG pCO2 POC ABG pO2 ABG pO2 ABG HCO3 ABG Base Excess ABG Hemoglobin Oxyhemoglobin Sodium 128 L Potassium 5.4 H Chloride 87.5 L Carbon Dioxide BUN 44 H Creatinine Glucose 250 H POC Glucose Lactic Acid Calcium AST Alkaline Phosphatase Albumin Urine WBC (Auto) 01/28/17 01/28/17 01/28/17 03:44 11:43 16:47 WBC RBC Hgb Hct MCV MCH RDW Plt Count Lymph % (Auto) S[place] % (Auto) Eos % (Auto) Seg Neutrophils % Seg Neuts % (Manual) Lymphocytes % (Manual) Seg Neutrophils # Seg Neutrophils # Man Lymphocytes # (Manual) POC ABG pH ABG pH POC ABG pCO2 POC ABG pO2 ABG pO2 ABG HCO3 ABG Base Excess ABG Hemoglobin Oxyhemoglobin Sodium Potassium Chloride Carbon Dioxide BUN 42 H Creatinine Glucose 128 H POC Glucose 351 H 249 H Lactic Acid Calcium AST Alkaline Phosphatase Albumin Urine WBC (Auto) 01/28/17 01/29/17 01/29/17 17:52 05:25 05:25 WBC 13.6 H RBC 3.25 L Hgb 8.3 L Hct 25.1 L MCV 77 L MCH 26 L RDW 16.8 H Plt Count 514 H Lymph % (Auto) S[place] % (Auto) Eos % (Auto) Seg Neutrophils % Seg Neuts % (Manual) Lymphocytes % (Manual) Seg Neutrophils # Seg Neutrophils # Man Lymphocytes # (Manual) POC ABG pH ABG pH POC ABG pCO2 POC ABG pO2 ABG pO2 ABG HCO3 ABG Base Excess ABG Hemoglobin Oxyhemoglobin Sodium Potassium Chloride 97.8 L Carbon Dioxide BUN 34 H Creatinine Glucose 222 H POC Glucose Lactic Acid Calcium AST Alkaline Phosphatase Albumin Urine WBC (Auto) > 182.0 H 01/29/17 01/29/17 01/29/17 09:32 11:56 18:11 WBC RBC Hgb Hct MCV MCH RDW Plt Count Lymph % (Auto) [place] % (Auto) Eos % (Auto) Seg Neutrophils % Seg Neuts % (Manual) Lymphocytes % (Manual) Seg Neutrophils # Seg Neutrophils # Man Lymphocytes # (Manual) POC ABG pH ABG pH POC ABG pCO2 POC ABG pO2 ABG pO2 ABG HCO3 ABG Base Excess ABG Hemoglobin Oxyhemoglobin Sodium Potassium Chloride Carbon Dioxide BUN Creatinine Glucose POC Glucose 261 H 215 H Lactic Acid 2.50 H* Calcium AST Alkaline Phosphatase Albumin Urine WBC (Auto) 01/29/17 01/30/17 01/30/17 23:55 05:31 05:31 WBC 15.2 H RBC 3.09 L Hgb 7.9 L Hct 23.9 L MCV 77 L MCH 26 L RDW 16.9 H Plt Count 569 H Lymph % (Auto) [place] % (Auto) Eos % (Auto) Seg Neutrophils % Seg Neuts % (Manual) Lymphocytes % (Manual) Seg Neutrophils # Seg Neutrophils # Man Lymphocytes # (Manual) POC ABG pH ABG pH POC ABG pCO2 POC ABG pO2 ABG pO2 ABG HCO3 ABG Base Excess ABG Hemoglobin Oxyhemoglobin Sodium Potassium Chloride Carbon Dioxide BUN 24 H Creatinine Glucose 235 H POC Glucose 176 H Lactic Acid Calcium AST Alkaline Phosphatase Albumin Urine WBC (Auto) 01/30/17 01/30/17 01/30/17 05:34 11:38 17:58 WBC RBC Hgb Hct MCV MCH RDW Plt Count Lymph % (Auto) [place] % (Auto) Eos % (Auto) Seg Neutrophils % Seg Neuts % (Manual) Lymphocytes % (Manual) Seg Neutrophils # Seg Neutrophils # Man Lymphocytes # (Manual) POC ABG pH ABG pH POC ABG pCO2 POC ABG pO2 ABG pO2 ABG HCO3 ABG Base Excess ABG Hemoglobin Oxyhemoglobin Sodium Potassium Chloride Carbon Dioxide BUN Creatinine Glucose POC Glucose 243 H 298 H 208 H Lactic Acid Calcium AST Alkaline Phosphatase Albumin Urine WBC (Auto) 01/30/17 01/31/17 01/31/17 23:29 04:39 04:39 WBC 11.4 H RBC 3.22 L Hgb 8.2 L Hct 24.9 L MCV 78 L MCH 25 L RDW 17.2 H Plt Count 576 H Lymph % (Auto) [place] % (Auto) Eos % (Auto) Seg Neutrophils % Seg Neuts % (Manual) Lymphocytes % (Manual) Seg Neutrophils # Seg Neutrophils # Man Lymphocytes # (Manual) POC ABG pH ABG pH POC ABG pCO2 POC ABG pO2 ABG pO2 ABG HCO3 ABG Base Excess ABG Hemoglobin Oxyhemoglobin Sodium Potassium Chloride Carbon Dioxide BUN Creatinine 0.7 L Glucose 223 H POC Glucose 245 H Lactic Acid Calcium AST Alkaline Phosphatase Albumin Urine WBC (Auto) 01/31/17 01/31/17 01/31/17 05:57 12:23 17:41 WBC RBC Hgb Hct MCV MCH RDW Plt Count Lymph % (Auto) [place] % (Auto) Eos % (Auto) Seg Neutrophils % Seg Neuts % (Manual) Lymphocytes % (Manual) Seg Neutrophils # Seg Neutrophils # Man Lymphocytes # (Manual) POC ABG pH ABG pH POC ABG pCO2 POC ABG pO2 ABG pO2 ABG HCO3 ABG Base Excess ABG Hemoglobin Oxyhemoglobin Sodium Potassium Chloride Carbon Dioxide BUN Creatinine Glucose POC Glucose 264 H 252 H 208 H Lactic Acid Calcium AST Alkaline Phosphatase Albumin Urine WBC (Auto) 01/31/17 01/31/17 02/01/17 18:55 22:59 03:38 WBC RBC 2.81 L Hgb 7.4 L Hct 22.1 L MCV 79 L MCH 27 L RDW 17.0 H Plt Count 540 H Lymph % (Auto) [place] % (Auto) Eos % (Auto) Seg Neutrophils % Seg Neuts % (Manual) Lymphocytes % (Manual) Seg Neutrophils # Seg Neutrophils # Man Lymphocytes # (Manual) POC ABG pH ABG pH POC ABG pCO2 32.8 L POC ABG pO2 ABG pO2 ABG HCO3 ABG Base Excess ABG Hemoglobin Oxyhemoglobin Sodium Potassium Chloride Carbon Dioxide BUN Creatinine Glucose POC Glucose 40 L Lactic Acid Calcium AST Alkaline Phosphatase Albumin Urine WBC (Auto) 10/02/01/17 02/01/17 03:38 05:17 12:19 WBC RBC Hgb Hct MCV MCH RDW Plt Count Lymph % (Auto) [place] % (Auto) Eos % (Auto) Seg Neutrophils % Seg Neuts % (Manual) Lymphocytes % (Manual) Seg Neutrophils # Seg Neutrophils # Man Lymphocytes # (Manual) POC ABG pH ABG pH POC ABG pCO2 POC ABG pO2 ABG pO2 ABG HCO3 ABG Base Excess ABG Hemoglobin Oxyhemoglobin Sodium Potassium Chloride Carbon Dioxide 21 L BUN Creatinine 0.7 L Glucose POC Glucose 140 H 213 H Lactic Acid Calcium AST Alkaline Phosphatase Albumin Urine WBC (Auto) 02/01/17 02/01/17 02/02/17 16:44 23:59 05:14 WBC RBC Hgb Hct MCV MCH RDW Plt Count Lymph % (Auto) [place] % (Auto) Eos % (Auto) Seg Neutrophils % Seg Neuts % (Manual) Lymphocytes % (Manual) Seg Neutrophils # Seg Neutrophils # Man Lymphocytes # (Manual) POC ABG pH ABG pH POC ABG pCO2 POC ABG pO2 ABG pO2 ABG HCO3 ABG Base Excess ABG Hemoglobin Oxyhemoglobin Sodium Potassium Chloride Carbon Dioxide BUN Creatinine Glucose POC Glucose 172 H 181 H 194 H Lactic Acid Calcium AST Alkaline Phosphatase Albumin Urine WBC (Auto) 02/02/17 02/02/17 02/02/17 11:24 11:46 11:46 WBC RBC 2.94 L Hgb 7.5 L Hct 23.0 L MCV 78 L MCH 25 L RDW 16.9 H Plt Count 520 H Lymph % (Auto) [place] % (Auto) Eos % (Auto) Seg Neutrophils % Seg Neuts % (Manual) Lymphocytes % (Manual) Seg Neutrophils # Seg Neutrophils # Man Lymphocytes # (Manual) POC ABG pH ABG pH POC ABG pCO2 POC ABG pO2 ABG pO2 ABG HCO3 ABG Base Excess ABG Hemoglobin Oxyhemoglobin Sodium Potassium Chloride Carbon Dioxide BUN Creatinine 0.6 L Glucose 189 H POC Glucose 209 H Lactic Acid Calcium 8.1 L AST Alkaline Phosphatase Albumin Urine WBC (Auto) 02/02/17 02/02/17 02/03/17 17:47 23:32 05:53 WBC RBC Hgb Hct MCV MCH RDW Plt Count Lymph % (Auto) [place] % (Auto) Eos % (Auto) Seg Neutrophils % Seg Neuts % (Manual) Lymphocytes % (Manual) Seg Neutrophils # Seg Neutrophils # Man Lymphocytes # (Manual) POC ABG pH ABG pH POC ABG pCO2 POC ABG pO2 ABG pO2 ABG HCO3 ABG Base Excess ABG Hemoglobin Oxyhemoglobin Sodium Potassium Chloride Carbon Dioxide BUN Creatinine Glucose POC Glucose 147 H 176 H 224 H Lactic Acid Calcium AST Alkaline Phosphatase Albumin Urine WBC (Auto) 02/03/17 02/03/17 02/03/17 11:19 16:59 23:38 WBC RBC Hgb Hct MCV MCH RDW Plt Count Lymph % (Auto) [place] % (Auto) Eos % (Auto) Seg Neutrophils % Seg Neuts % (Manual) Lymphocytes % (Manual) Seg Neutrophils # Seg Neutrophils # Man Lymphocytes # (Manual) POC ABG pH ABG pH POC ABG pCO2 POC ABG pO2 ABG pO2 ABG HCO3 ABG Base Excess ABG Hemoglobin Oxyhemoglobin Sodium Potassium Chloride Carbon Dioxide BUN Creatinine Glucose POC Glucose 228 H 189 H 191 H Lactic Acid Calcium AST Alkaline Phosphatase Albumin Urine WBC (Auto) 02/04/17 02/04/17 02/04/17 05:45 11:20 17:20 WBC RBC Hgb Hct MCV MCH RDW Plt Count Lymph % (Auto) [place] % (Auto) Eos % (Auto) Seg Neutrophils % Seg Neuts % (Manual) Lymphocytes % (Manual) Seg Neutrophils # Seg Neutrophils # Man Lymphocytes # (Manual) POC ABG pH ABG pH POC ABG pCO2 POC ABG pO2 ABG pO2 ABG HCO3 ABG Base Excess ABG Hemoglobin Oxyhemoglobin Sodium Potassium Chloride Carbon Dioxide BUN Creatinine Glucose POC Glucose 251 H 243 H 163 H Lactic Acid Calcium AST Alkaline Phosphatase Albumin Urine WBC (Auto) 02/05/17 02/05/17 02/05/17 00:17 05:38 12:38 WBC RBC Hgb Hct MCV MCH RDW Plt Count Lymph % (Auto) [place] % (Auto) Eos % (Auto) Seg Neutrophils % Seg Neuts % (Manual) Lymphocytes % (Manual) Seg Neutrophils # Seg Neutrophils # Man Lymphocytes # (Manual) POC ABG pH ABG pH POC ABG pCO2 POC ABG pO2 ABG pO2 ABG HCO3 ABG Base Excess ABG Hemoglobin Oxyhemoglobin Sodium Potassium Chloride Carbon Dioxide BUN Creatinine Glucose POC Glucose 200 H 248 H 241 H Lactic Acid Calcium AST Alkaline Phosphatase Albumin Urine WBC (Auto) 02/05/17 02/05/17 02/06/17 16:29 23:56 05:30 WBC RBC Hgb Hct MCV MCH RDW Plt Count Lymph % (Auto) [place] % (Auto) Eos % (Auto) Seg Neutrophils % Seg Neuts % (Manual) Lymphocytes % (Manual) Seg Neutrophils # Seg Neutrophils # Man Lymphocytes # (Manual) POC ABG pH ABG pH POC ABG pCO2 POC ABG pO2 ABG pO2 ABG HCO3 ABG Base Excess ABG Hemoglobin Oxyhemoglobin Sodium Potassium Chloride Carbon Dioxide BUN Creatinine Glucose POC Glucose 257 H 258 H 120 H Lactic Acid Calcium AST Alkaline Phosphatase Albumin Urine WBC (Auto) 02/06/17 02/06/17 02/06/17 11:50 17:11 23:50 WBC RBC Hgb Hct MCV MCH RDW Plt Count Lymph % (Auto) [place] % (Auto) Eos % (Auto) Seg Neutrophils % Seg Neuts % (Manual) Lymphocytes % (Manual) Seg Neutrophils # Seg Neutrophils # Man Lymphocytes # (Manual) POC ABG pH ABG pH POC ABG pCO2 POC ABG pO2 ABG pO2 ABG HCO3 ABG Base Excess ABG Hemoglobin Oxyhemoglobin Sodium Potassium Chloride Carbon Dioxide BUN Creatinine Glucose POC Glucose 254 H 149 H 240 H Lactic Acid Calcium AST Alkaline Phosphatase Albumin Urine WBC (Auto) 02/07/17 02/07/17 02/07/17 05:22 11:15 18:33 WBC RBC Hgb Hct MCV MCH RDW Plt Count Lymph % (Auto) [place] % (Auto) Eos % (Auto) Seg Neutrophils % Seg Neuts % (Manual) Lymphocytes % (Manual) Seg Neutrophils # Seg Neutrophils # Man Lymphocytes # (Manual) POC ABG pH ABG pH POC ABG pCO2 POC ABG pO2 ABG pO2 ABG HCO3 ABG Base Excess ABG Hemoglobin Oxyhemoglobin Sodium Potassium Chloride Carbon Dioxide BUN Creatinine Glucose POC Glucose 258 H 239 H 176 H Lactic Acid Calcium AST Alkaline Phosphatase Albumin Urine WBC (Auto) 02/07/17 02/08/17 02/08/17 23:59 06:15 11:55 WBC RBC Hgb Hct MCV MCH RDW Plt Count Lymph % (Auto) [place] % (Auto) Eos % (Auto) Seg Neutrophils % Seg Neuts % (Manual) Lymphocytes % (Manual) Seg Neutrophils # Seg Neutrophils # Man Lymphocytes # (Manual) POC ABG pH ABG pH POC ABG pCO2 POC ABG pO2 ABG pO2 ABG HCO3 ABG Base Excess ABG Hemoglobin Oxyhemoglobin Sodium Potassium Chloride Carbon Dioxide BUN Creatinine Glucose POC Glucose 186 H 195 H 129 H Lactic Acid Calcium AST Alkaline Phosphatase Albumin Urine WBC (Auto) 02/08/17 02/08/17 02/09/17 16:55 23:51 05:51 WBC RBC Hgb Hct MCV MCH RDW Plt Count Lymph % (Auto) [place] % (Auto) Eos % (Auto) Seg Neutrophils % Seg Neuts % (Manual) Lymphocytes % (Manual) Seg Neutrophils # Seg Neutrophils # Man Lymphocytes # (Manual) POC ABG pH ABG pH POC ABG pCO2 POC ABG pO2 ABG pO2 ABG HCO3 ABG Base Excess ABG Hemoglobin Oxyhemoglobin Sodium Potassium Chloride Carbon Dioxide BUN Creatinine Glucose POC Glucose 246 H 262 H 295 H Lactic Acid Calcium AST Alkaline Phosphatase Albumin Urine WBC (Auto) 02/09/17 02/09/17 02/09/17 07:24 07:24 12:08 WBC 14.7 H RBC 3.39 L Hgb 8.9 L Hct 26.4 L MCV 78 L MCH 26 L RDW 18.4 H Plt Count 670 H Lymph % (Auto) 11.8 L [place] % (Auto) Eos % (Auto) Seg Neutrophils % 81.2 H Seg Neuts % (Manual) Lymphocytes % (Manual) Seg Neutrophils # 11.9 H Seg Neutrophils # Man Lymphocytes # (Manual) POC ABG pH ABG pH POC ABG pCO2 POC ABG pO2 ABG pO2 ABG HCO3 ABG Base Excess ABG Hemoglobin Oxyhemoglobin Sodium Potassium Chloride 95.5 L Carbon Dioxide BUN 52 H Creatinine Glucose 277 H POC Glucose 236 H Lactic Acid Calcium AST Alkaline Phosphatase Albumin Urine WBC (Auto) 02/09/17 02/10/17 02/10/17 18:39 00:01 05:44 WBC RBC Hgb Hct MCV MCH RDW Plt Count Lymph % (Auto) [place] % (Auto) Eos % (Auto) Seg Neutrophils % Seg Neuts % (Manual) Lymphocytes % (Manual) Seg Neutrophils # Seg Neutrophils # Man Lymphocytes # (Manual) POC ABG pH ABG pH POC ABG pCO2 POC ABG pO2 ABG pO2 ABG HCO3 ABG Base Excess ABG Hemoglobin Oxyhemoglobin Sodium Potassium Chloride Carbon Dioxide BUN Creatinine Glucose POC Glucose 151 H 210 H 201 H Lactic Acid Calcium AST Alkaline Phosphatase Albumin Urine WBC (Auto) 02/10/17 11:21 WBC RBC Hgb Hct MCV MCH RDW Plt Count Lymph % (Auto) [place] % (Auto) Eos % (Auto) Seg Neutrophils % Seg Neuts % (Manual) Lymphocytes % (Manual) Seg Neutrophils # Seg Neutrophils # Man Lymphocytes # (Manual) POC ABG pH ABG pH POC ABG pCO2 POC ABG pO2 ABG pO2 ABG HCO3 ABG Base Excess ABG Hemoglobin Oxyhemoglobin Sodium Potassium Chloride Carbon Dioxide BUN Creatinine Glucose POC Glucose 233 H Lactic Acid Calcium AST Alkaline Phosphatase Albumin Urine WBC (Auto) Chest x-ray: report reviewed, image reviewed
[2017-02-11] MEDS: NOVOLOG SUB-Q SCH ×4 (00:44→18:01)
[2017-02-11] MEDS: SYNTHROID PO SCH (05:10)
[2017-02-11] MEDS: LEVEMIR (NF) SUB-Q SCH (09:53)
[2017-02-11] MEDS: NORMODYNE PO SCH ×2 (09:53→21:17)
[2017-02-11] MEDS: PEPCID PO SCH ×2 (09:53→21:17)
[2017-02-11] MEDS: HEPARIN SUB-Q SCH ×2 (09:54→21:18)
--- NOTE | 2017-02-11 11:29 | Progress Note ---
Assessment and Plan Assessment and plan: 51 YO Male with CKD,HTN, DM presents to ED for evaluation. Pt unable to provide history. Pt history taken from ED staff, and medical records. Pt found down and unresponsive by his neighbor, who subsequently called EMS. Upon arrival, patient found unresponsive on the floor with a serum glucose of 21, and covered with ants with insulin syringes around him and a bottle of atenolol which still had many pills remaining, patient has a known history of alcohol abuse and delirium tremens. The patient was administered D5 approximate 500 mls during transport without change in mental status/level of consciousness. Pt seen and evaluated in ED was was found to be unable to protect his airway. Pt intubated and placed on vent support. Pt found to have evidence of hypothyroidism. He was started on Synthroid. He has since been in the ICU. The patient continued to deteriorate. He is in this grade 4 coma, brain imaging does not show any reversible cause. The patient remains in a persistent vegetative states. Sepsis has been ruled out. shared services and outsourcing manager try to locate family, even spoke to the family who he lives with. They themselves were unaware of any family members. After ethics committee meeting on the patient, the decision was made to make him DO NOT RESUSCITATE and to transfer him to hospice. The hospital is trying to get guardianship to sign necessary orders for hospice, however, unsure if they are willing to sign for withdrawal of ventilator Diagnosis Hypoglycemic brain injury Persistent vegetative state Metabolic encephalopathy Hypoglycemia/hypothermia Acute respiratory failure mechanical ventilator greater than 96 hours Sepsis ruled out, UTI ruled out hyponatremia, Hypothyroidism DNR- awaiting hospice placement, awaiting guardianship from the state to give consent, as has no family to give consent History Interval history: no new issues overnight Hospitalist Physical - Constitutional Vitals: Temp Pulse Resp BP Pulse Ox 98.2 F 64 17 122/72 99 02/11/17 08:00 02/11/17 10:00 02/11/17 10:00 02/11/17 10:00 02/11/17 10:00 General appearance: Present: no acute distress - EENT Eyes: Present: PERRL, EOM intact ENT: hearing intact, clear oral mucosa, dentition normal - Neck Neck: Present: supple, normal ROM - Respiratory Respiratory effort: normal Respiratory: bilateral: CTA - Cardiovascular Rhythm: regular Heart Sounds: Present: S1 & S2. Absent: gallop, rub - Extremities Extremities: no ischemia, No edema, Full ROM - Abdominal General gastrointestinal: soft, non-tender, non-distended, normal bowel sounds - Integumentary Integumentary: Present: clear, warm, dry - Neurologic Neurologic: CNII-XII intact, moves all extremities Results - Labs CBC & Chem 7: 02/09/17 07:24 11 07:24 Labs: Laboratory Last Values WBC 14.7 K/mm3 (4.5-11.0) H 02/09/17 07:24 RBC 3.39 M/mm3 (3.65-5.03) L 02/09/17 07:24 Hgb 8.9 gm/dl (11.8-15.2) L 02/09/17 07:24 Hct 26.4 % (35.5-45.6) L 02/09/17 07:24 MCV 78 fl (84-94) L 02/09/17 07:24 MCH 26 pg (28-32) L 02/09/17 07:24 MCHC 34 % (32-34) 02/09/17 07:24 RDW 18.4 % (13.2-15.2) H 02/09/17 07:24 Plt Count 670 K/mm3 (140-440) H 02/09/17 07:24 Lymph % (Auto) 11.8 % (13.4-35.0) L 02/09/17 07:24 [place] % (Auto) 4.7 % (0.0-7.3) 02/09/17 07:24 Eos % (Auto) 1.9 % (0.0-4.3) 02/09/17 07:24 Baso % (Auto) 0.4 % (0.0-1.8) 02/09/17 07:24 Lymph # 1.7 K/mm3 (1.2-5.4) 02/09/17 07:24 [place] # 0.7 K/mm3 (0.0-0.8) 02/09/17 07:24 Eos # 0.3 K/mm3 (0.0-0.4) 02/09/17 07:24 Baso # 0.1 K/mm3 (0.0-0.1) 02/09/17 07:24 Add Manual Diff Complete 01/10/17 04:30 Total Counted 100 01/10/17 04:30 Seg Neutrophils % 81.2 % (40.0-70.0) H 02/09/17 07:24 Seg Neuts % (Manual) 88.0 % (40.0-70.0) H 01/10/17 04:30 Band Neutrophils % 7.0 % 01/10/17 04:30 Lymphocytes % (Manual) 4.0 % (13.4-35.0) L 01/10/17 04:30 Reactive Lymphs % (Man) 0 % 01/10/17 04:30 Monocytes % (Manual) 1.0 % (0.0-7.3) 01/10/17 04:30 Eosinophils % (Manual) 0 % (0.0-4.3) 01/10/17 04:30 Basophils % (Manual) 0 % (0.0-1.8) 01/10/17 04:30 Metamyelocytes % 0 % 01/10/17 04:30 Myelocytes % 0 % 01/10/17 04:30 Promyelocytes % 0 % 01/10/17 04:30 Blast Cells % 0 % 01/10/17 04:30 Nucleated RBC % Not Reportable 01/10/17 04:30 Seg Neutrophils # 11.9 K/mm3 (1.8-7.7) H 02/09/17 07:24 Seg Neutrophils # Man 21.2 K/mm3 (1.8-7.7) H 01/10/17 04:30 Band Neutrophils # 1.7 K/mm3 01/10/17 04:30 Lymphocytes # (Manual) 1.0 K/mm3 (1.2-5.4) L 01/10/17 04:30 Abs React Lymphs (Man) 0.0 K/mm3 01/10/17 04:30 Monocytes # (Manual) 0.2 K/mm3 (0.0-0.8) 01/10/17 04:30 Eosinophils # (Manual) 0.0 K/mm3 (0.0-0.4) 01/10/17 04:30 Basophils # (Manual) 0.0 K/mm3 (0.0-0.1) 01/10/17 04:30 Metamyelocytes # 0.0 K/mm3 01/10/17 04:30 Myelocytes # 0.0 K/mm3 01/10/17 04:30 Promyelocytes # 0.0 K/mm3 01/10/17 04:30 Blast Cells # 0.0 K/mm3 01/10/17 04:30 WBC Morphology Not Reportable 01/10/17 04:30 Hypersegmented Neuts Not Reportable 01/10/17 04:30 Hyposegmented Neuts Not Reportable 01/10/17 04:30 Hypogranular Neuts Not Reportable 01/10/17 04:30 Smudge Cells Not Reportable 01/10/17 04:30 Toxic Granulation Not Reportable 01/10/17 04:30 Toxic Vacuolation Not Reportable 01/10/17 04:30 Dohle Bodies Not Reportable 01/10/17 04:30 Pelger-Huet Anomaly Not Reportable 01/10/17 04:30 Shelby Rods Not Reportable 01/10/17 04:30 Platelet Estimate Consistent w auto 01/10/17 04:30 Clumped Platelets Not Reportable 01/10/17 04:30 Plt Clumps, EDTA Not Reportable 01/10/17 04:30 Large Platelets Not Reportable 01/10/17 04:30 Giant Platelets Not Reportable 01/10/17 04:30 Platelet Satelliting Not Reportable 01/10/17 04:30 Plt Morphology Comment Not Reportable 01/10/17 04:30 RBC Morphology Not Reportable 01/10/17 04:30 Dimorphic RBCs Not Reportable 01/10/17 04:30 Polychromasia Not Reportable 01/10/17 04:30 Hypochromasia 1+ 01/10/17 04:30 Poikilocytosis Not Reportable 01/10/17 04:30 Anisocytosis Not Reportable 01/10/17 04:30 Microcytosis Not Reportable 01/10/17 04:30 Macrocytosis Not Reportable 01/10/17 04:30 Spherocytes Not Reportable 01/10/17 04:30 Pappenheimer Bodies Not Reportable 01/10/17 04:30 Sickle Cells Not Reportable 01/10/17 04:30 Target Cells Not Reportable 01/10/17 04:30 Tear Drop Cells Not Reportable 01/10/17 04:30 Ovalocytes Not Reportable 01/10/17 04:30 Helmet Cells Not Reportable 01/10/17 04:30 [place] Bodies Not Reportable 01/10/17 04:30 [place] Rings Not Reportable 01/10/17 04:30 Jessica Cells Not Reportable 01/10/17 04:30 Bite Cells Not Reportable 01/10/17 04:30 Crenated Cell Not Reportable 01/10/17 04:30 Elliptocytes Not Reportable 01/10/17 04:30 Acanthocytes (Spur) Not Reportable 01/10/17 04:30 Rouleaux Not Reportable 01/10/17 04:30 Hemoglobin C Crystals Not Reportable 01/10/17 04:30 Schistocytes Not Reportable 01/10/17 04:30 Malaria parasites Not Reportable 01/10/17 04:30 Kyle Bodies Not Reportable 01/10/17 04:30 Hem Pathologist Commnt No 01/10/17 04:30 PT 14.1 Sec. (12.2-14.9) 01/17/17 04:10 INR 1.04 (0.87-1.13) 01/17/17 04:10 APTT 36.6 Sec. (24.2-36.6) 01/17/17 04:10 POC ABG pH 7.442 (7.35-7.45) 01/31/17 18:55 ABG pH 7.420 pH Units (7.350-7.450) 01/17/17 04:35 POC ABG pCO2 32.8 (35-45) L 01/31/17 18:55 ABG pCO2 34.5 mm Hg 01/17/17 04:35 POC ABG pO2 82 (80-105) 01/31/17 18:55 ABG pO2 160.3 mm Hg (80.0-90.0) H 01/17/17 04:35 POC ABG HCO3 22.4 01/31/17 18:55 ABG HCO3 21.9 mmol/L (20.0-26.0) 01/17/17 04:35 POC ABG Total CO2 23 01/31/17 18:55 POC ABG O2 Sat 97 01/31/17 18:55 ABG O2 Saturation 99.0 % (95.0-99.0) 01/17/17 04:35 ABG O2 Content 11.1 (0.0-44) 01/17/17 04:35 POC ABG Base Excess -2 01/31/17 18:55 ABG Base Excess -2.3 mmol/L (-2.0-3.0) L 01/17/17 04:35 ABG Hemoglobin 7.9 gm/dl (14.0-18.0) L 01/17/17 04:35 ABG Carboxyhemoglobin 1.5 % (0.0-5.0) 01/17/17 04:35 ABG Methemoglobin 0.5 % (0.0-1.5) 01/17/17 04:35 VBG pH 7.284 (7.320-7.420) L 01/09/17 10:16 Oxyhemoglobin 97.1 % (95.0-99.0) 01/17/17 04:35 FiO2 25 % 01/31/17 18:55 Sodium 137 mmol/L (137-145) 02/09/17 07:24 Potassium 4.9 mmol/L (3.6-5.0) 02/09/17 07:24 Chloride 95.5 mmol/L (98-107) L 02/09/17 07:24 Carbon Dioxide 29 mmol/L (22-30) 02/09/17 07:24 Anion Gap 17 mmol/L 02/09/17 07:24 BUN 52 mg/dL (9-20) H 02/09/17 07:24 Creatinine 0.8 mg/dL (0.8-1.5) 02/09/17 07:24 Estimated GFR > 60 ml/min 02/09/17 07:24 BUN/Creatinine Ratio 65 % 02/09/17 07:24 Glucose 277 mg/dL (75-100) H 02/09/17 07:24 POC Glucose 191 (70-105) H 02/10/17 23:56 Lactic Acid 0.80 mmol/L (0.7-2.0) 01/30/17 11:49 Calcium 9.4 mg/dL (8.4-10.2) 02/09/17 07:24 Phosphorus 3.60 mg/dL (2.5-4.5) 01/22/17 04:00 Magnesium 2.10 mg/dL (1.7-2.3) 01/22/17 04:00 Total Bilirubin 0.30 mg/dL (0.1-1.2) 01/22/17 04:00 AST 44 units/L (5-40) H 01/22/17 04:00 ALT 23 units/L (7-56) 01/22/17 04:00 Alkaline Phosphatase 379 units/L (35-129) H 01/22/17 04:00 Ammonia 35.0 umol/L (25-60) 01/09/17 10:16 Total Creatine Kinase 135 units/L (55-170) 01/09/17 10:16 CK-MB (CK-2) 7.1 ng/mL (0.0-4.0) H 01/09/17 10:16 CK-MB (CK-2) Rel Index 5.2 (0-4) H 01/09/17 10:16 Troponin T < 0.010 ng/mL (0.00-0.029) 01/09/17 10:16 NT-Pro-B Natriuret Pep 602.9 pg/mL (0-900) 01/09/17 10:16 Total Protein 7.9 g/dL (6.3-8.2) 01/22/17 04:00 Albumin 2.7 g/dL (3.9-5) L 01/22/17 04:00 Albumin/Globulin Ratio 0.5 % 01/22/17 04:00 TSH 52.800 mlU/mL (0.270-4.200) H 01/09/17 10:16 Free T4 0.78 ng/dL (0.76-1.46) 01/09/17 10:16 Total Cortisol 54.8 mcg/dL () 01/09/17 16:19 Urine Color Yellow (Yellow) 01/28/17 17:52 Urine Turbidity Clear (Clear) 01/28/17 17:52 Urine pH 6.0 (5.0-7.0) 01/28/17 17:52 Ur Specific [place] 1.016 (1.003-1.030) 01/28/17 17:52 Urine Protein 100 mg/dl mg/dL (Negative) 01/28/17 17:52 Urine Glucose (UA) >=500 mg/dL (Negative) 01/28/17 17:52 Urine Ketones Neg mg/dL (Negative) 01/28/17 17:52 Urine Blood Sm (Negative) 01/28/17 17:52 Urine Nitrite Neg (Negative) 01/28/17 17:52 Urine Bilirubin Neg (Negative) 01/28/17 17:52 Urine Urobilinogen < 2.0 mg/dL (<2.0) 01/28/17 17:52 Ur Leukocyte Esterase Lg (Negative) 01/28/17 17:52 Urine WBC (Auto) > 182.0 /HPF (0.0-6.0) H 01/28/17 17:52 Urine RBC (Auto) 113.0 /HPF (0.0-6.0) 01/28/17 17:52 Urine Bacteria (Auto) 2+ /HPF (Negative) 01/28/17 17:52 Urine WBC Clumps 3+ /HPF 01/28/17 17:52 Urine Mucus Few /HPF 01/14/17 14:07 Urine Yeast (Budding) 3+ /HPF 01/14/17 14:07 Salicylates < 0.3 mg/dL (2.8-20.0) L 01/09/17 10:16 Urine Opiates Screen Presumptive negative 01/09/17 10:23 Urine Methadone Screen Presumptive negative 01/09/17 10:23 Acetaminophen < 15.0 ug/mL (10.0-30.0) 01/09/17 10:16 Ur Barbiturates Screen Presumptive negative 01/09/17 10:23 Ur Phencyclidine Scrn Presumptive negative 01/09/17 10:23 Ur Amphetamines Screen Presumptive negative 01/09/17 10:23 U Benzodiazepines Scrn Presumptive negative 01/09/17 10:23 Urine Cocaine Screen Presumptive negative 01/09/17 10:23 U Marijuana (THC) Screen Presumptive negative 01/09/17 10:23 Drugs of Abuse Note Disclamer 01/09/17 10:23 Plasma/Serum Alcohol < 0.01 gm% (0-0.07) 01/09/17 10:16
--- NOTE | 2017-02-11 14:48 | Progress Note ---
Assessment and Plan Imp: 1. Hypoglycemia/hypothermia -> suspect due to too much insulin 2. Hypothyroidism; doubt myxedema coma with normal free T4 3. Acute respiratory failure, hypoxia 4. UTI/SIRS 5. Metabolic encephalopathy Rec: 1. GI/DVT PPx/TFs 2. Reviewed chart; ethics note 01/18/17 recommended AND and "hospice"; trying to get guardianship to sign necessary orders for this (however, I was told they are not willing to sign for withdrawal of ventilator); further care felt to be futile and would only prolong potential suffering without affecting ultimate outcome 3. Comfort care, no escalation of care; would not check any further labs, etc. 4. Poor prognosis Unable to locate family. Subjective Date of service: 02/11/17 Principal diagnosis: Acute respiratory failure,encephalopathy Interval history: No events. On vent. Unresponsive. Active Medications Acetaminophen (Tylenol) 650 mg FEEDTUBE Q6H PRN PRN Reason: Non Cardiac Pain Or Temp>101 Last Admin: 02/09/17 22:50 Dose: 650 mg Lipase/Protease/Amylase (Pancreaze Dr 10,500 Unit) 1 each FEEDTUBE PRN PRN PRN Reason: For Clogged Feeding Tube Dextrose (D50w (25gm) Vial) 50 gm IV PRN PRN PRN Reason: Hypoglycemia Famotidine (Pepcid) 20 mg PO BID [facility] Last Admin: 02/11/17 09:53 Dose: 20 mg Heparin Sodium (Porcine) (Heparin) 5,000 unit SUB-Q Q12HR [facility] Last Admin: 02/11/17 09:54 Dose: 5,000 unit Hydralazine HCl (Apresoline) 10 mg IV Q4HR PRN PRN Reason: Hypertension Last Admin: 02/02/17 06:14 Dose: 10 mg Hydrophilic Ointment (Vaseline Lip Therapy) 1 applic TP Q2HR PRN PRN Reason: Dry Lips Insulin Aspart (Novolog) 0 units SUB-Q Q6HR [facility] PRN Reason: Protocol Last Admin: 02/11/17 12:57 Dose: 4 units Insulin Detemir (Levemir) 10 units SUB-Q DAILY [facility] Last Admin: 02/11/17 09:53 Dose: 10 units Labetalol HCl (Normodyne) 200 mg PO BID [facility] Last Admin: 02/11/17 09:53 Dose: 200 mg Levothyroxine Sodium (Synthroid) 100 mcg PO DAILY@0600 [facility] Last Admin: 02/11/17 05:10 Dose: 100 mcg Loperamide HCl (Imodium A-D) 2 mg PO Q2H PRN PRN Reason: Diarrhea Last Admin: 02/08/17 09:36 Dose: 2 mg Multi-Ingred Cream/Lotion/Oil/Oint (Artificial Tears Ophth Oint) 1 applic OU Q4HR PRN PRN Reason: Dry Eye(s) Simple Syrup (Simple Syrup) 15 ml FEEDTUBE PRN PRN PRN Reason: Hypoglycemia Last Admin: 01/31/17 23:19 Dose: 15 ml Simple Syrup (Simple Syrup) 30 ml FEEDTUBE PRN PRN PRN Reason: Hypoglycemia Sodium Bicarbonate (Sodium Bicarbonate) 325 mg FEEDTUBE PRN PRN PRN Reason: For Clogged Feeding Tube Objective Vital Signs - 12hr 02/11/17 02/11/17 02/11/17 03:00 03:07 04:00 Temperature 97.6 F Pulse Rate 66 58 L Pulse Rate [ 59 L From Monitor] Respiratory 17 13 Rate Blood Pressure 154/91 152/81 O2 Sat by Pulse 100 100 Oximetry 02/11/17 02/11/17 02/11/17 04:15 05:00 07:00 Temperature Pulse Rate 59 L 59 L 58 L Pulse Rate [ From Monitor] Respiratory 14 13 Rate Blood Pressure 152/81 153/81 181/87 O2 Sat by Pulse 100 100 100 Oximetry 02/11/17 02/11/17 02/11/17 08:00 08:25 09:00 Temperature 98.2 F Pulse Rate 59 L 59 L 63 Pulse Rate [ From Monitor] Respiratory 15 24 Rate Blood Pressure 144/80 144/80 124/72 O2 Sat by Pulse 100 100 98 Oximetry 02/11/17 02/11/17 02/11/17 09:53 10:00 11:00 Temperature Pulse Rate 65 64 73 Pulse Rate [ From Monitor] Respiratory 17 22 Rate Blood Pressure 121/70 122/72 113/80 O2 Sat by Pulse 99 100 Oximetry 02/11/17 02/11/17 02/11/17 12:00 12:12 13:00 Temperature 98.5 F Pulse Rate 73 73 70 Pulse Rate [ From Monitor] Respiratory 13 15 16 Rate Blood Pressure 137/90 137/90 145/89 O2 Sat by Pulse 100 100 100 Oximetry 02/11/17 14:00 Temperature Pulse Rate 63 Pulse Rate [ From Monitor] Respiratory 13 Rate Blood Pressure 129/76 O2 Sat by Pulse 100 Oximetry Constitutional: comatose, other (orally intubated, on vent) Eyes: non-icteric ENT: oropharynx moist Neck: supple Effort: normal Ascultation: Bilateral: clear Cardiovascular: regular rate and rhythm (no mrg) Gastrointestinal: normoactive bowel sounds, soft, non-tender, non-distended Integumentary: normal Extremities: no cyanosis, no edema, pink and warm Neurologic: other (unresponsive, flaccid extremities) Psychiatric: other (unable to obtain) CBC and BMP: 02/09/17 07:24 02/09/17 07:24 ABG, PT/INR, D-dimer: ABG POC ABG pH 7.442 (7.35-7.45) 01/31/17 18:55 ABG pH 7.420 pH Units (7.350-7.450) 01/17/17 04:35 POC ABG pCO2 32.8 (35-45) L 01/31/17 18:55 ABG pCO2 34.5 mm Hg 01/17/17 04:35 POC ABG pO2 82 (80-105) 01/31/17 18:55 ABG pO2 160.3 mm Hg (80.0-90.0) H 01/17/17 04:35 POC ABG HCO3 22.4 01/31/17 18:55 POC ABG Total CO2 23 01/31/17 18:55 POC ABG O2 Sat 97 01/31/17 18:55 ABG O2 Saturation 99.0 % (95.0-99.0) 01/17/17 04:35 PT/INR, D-dimer PT 14.1 Sec. (12.2-14.9) 01/17/17 04:10 INR 1.04 (0.87-1.13) 01/17/17 04:10 Abnormal lab findings: Abnormal Labs 01/09/17 01/09/17 01/09/17 12:49 13:13 14:21 WBC RBC Hgb Hct MCV MCH RDW Plt Count Lymph % (Auto) Banks % (Auto) Eos % (Auto) Seg Neutrophils % Seg Neuts % (Manual) Lymphocytes % (Manual) Seg Neutrophils # Seg Neutrophils # Man Lymphocytes # (Manual) POC ABG pH ABG pH POC ABG pCO2 POC ABG pO2 ABG pO2 ABG HCO3 ABG Base Excess ABG Hemoglobin Oxyhemoglobin Sodium Potassium Chloride Carbon Dioxide BUN Creatinine Glucose POC Glucose < 40 L 128 H 65 L Lactic Acid Calcium AST Alkaline Phosphatase Albumin Urine WBC (Auto) 01/09/17 01/09/17 01/09/17 15:09 16:28 17:14 WBC RBC Hgb Hct MCV MCH RDW Plt Count Lymph % (Auto) Banks % (Auto) Eos % (Auto) Seg Neutrophils % Seg Neuts % (Manual) Lymphocytes % (Manual) Seg Neutrophils # Seg Neutrophils # Man Lymphocytes # (Manual) POC ABG pH ABG pH POC ABG pCO2 POC ABG pO2 ABG pO2 ABG HCO3 ABG Base Excess ABG Hemoglobin Oxyhemoglobin Sodium Potassium Chloride Carbon Dioxide BUN Creatinine Glucose POC Glucose 120 H 44 L 112 H Lactic Acid Calcium AST Alkaline Phosphatase Albumin Urine WBC (Auto) 01/10/17 01/10/17 01/10/17 04:30 04:30 05:41 WBC 24.1 H RBC 3.38 L Hgb 8.5 L Hct 26.0 L MCV 77 L MCH 25 L RDW 17.9 H Plt Count 474 H Lymph % (Auto) Banks % (Auto) Eos % (Auto) Seg Neutrophils % Seg Neuts % (Manual) 88.0 H Lymphocytes % (Manual) 4.0 L Seg Neutrophils # Seg Neutrophils # Man 21.2 H Lymphocytes # (Manual) 1.0 L POC ABG pH ABG pH POC ABG pCO2 POC ABG pO2 ABG pO2 ABG HCO3 ABG Base Excess ABG Hemoglobin Oxyhemoglobin Sodium Potassium Chloride Carbon Dioxide 17 L BUN 27 H Creatinine Glucose POC Glucose 68 L Lactic Acid Calcium 7.5 L AST Alkaline Phosphatase Albumin Urine WBC (Auto) 01/10/17 01/10/17 01/10/17 05:45 07:47 10:50 WBC RBC Hgb Hct MCV MCH RDW Plt Count Lymph % (Auto) Banks % (Auto) Eos % (Auto) Seg Neutrophils % Seg Neuts % (Manual) Lymphocytes % (Manual) Seg Neutrophils # Seg Neutrophils # Man Lymphocytes # (Manual) POC ABG pH ABG pH POC ABG pCO2 26.6 L POC ABG pO2 207 H ABG pO2 ABG HCO3 ABG Base Excess ABG Hemoglobin Oxyhemoglobin Sodium Potassium Chloride Carbon Dioxide BUN Creatinine Glucose POC Glucose 148 H 165 H Lactic Acid Calcium AST Alkaline Phosphatase Albumin Urine WBC (Auto) 01/10/17 01/10/17 01/10/17 13:41 20:20 21:39 WBC RBC Hgb Hct MCV MCH RDW Plt Count Lymph % (Auto) Banks % (Auto) Eos % (Auto) Seg Neutrophils % Seg Neuts % (Manual) Lymphocytes % (Manual) Seg Neutrophils # Seg Neutrophils # Man Lymphocytes # (Manual) POC ABG pH ABG pH POC ABG pCO2 POC ABG pO2 ABG pO2 ABG HCO3 ABG Base Excess ABG Hemoglobin Oxyhemoglobin Sodium Potassium Chloride Carbon Dioxide BUN Creatinine Glucose POC Glucose 114 H 150 H 175 H Lactic Acid Calcium AST Alkaline Phosphatase Albumin Urine WBC (Auto) 01/10/17 01/11/17 01/11/17 23:24 00:19 04:06 WBC RBC Hgb Hct MCV MCH RDW Plt Count Lymph % (Auto) Banks % (Auto) Eos % (Auto) Seg Neutrophils % Seg Neuts % (Manual) Lymphocytes % (Manual) Seg Neutrophils # Seg Neutrophils # Man Lymphocytes # (Manual) POC ABG pH 7.463 H ABG pH POC ABG pCO2 26.2 L POC ABG pO2 185 H ABG pO2 ABG HCO3 ABG Base Excess ABG Hemoglobin Oxyhemoglobin Sodium Potassium Chloride Carbon Dioxide BUN Creatinine Glucose POC Glucose 155 H 163 H Lactic Acid Calcium AST Alkaline Phosphatase Albumin Urine WBC (Auto) 01/11/17 01/11/17 01/11/17 05:20 05:20 06:21 WBC 15.2 H RBC 3.40 L Hgb 8.9 L Hct 26.3 L MCV 78 L MCH 26 L RDW 18.6 H Plt Count 462 H Lymph % (Auto) 13.2 L Banks % (Auto) Eos % (Auto) Seg Neutrophils % 80.8 H Seg Neuts % (Manual) Lymphocytes % (Manual) Seg Neutrophils # 12.3 H Seg Neutrophils # Man Lymphocytes # (Manual) POC ABG pH ABG pH POC ABG pCO2 POC ABG pO2 ABG pO2 ABG HCO3 ABG Base Excess ABG Hemoglobin Oxyhemoglobin Sodium Potassium 3.4 L Chloride 111.5 H Carbon Dioxide 17 L BUN Creatinine Glucose 147 H POC Glucose 139 H Lactic Acid Calcium 8.0 L AST Alkaline Phosphatase Albumin Urine WBC (Auto) 01/11/17 01/11/17 01/11/17 07:57 11:46 16:50 WBC RBC Hgb Hct MCV MCH RDW Plt Count Lymph % (Auto) Banks % (Auto) Eos % (Auto) Seg Neutrophils % Seg Neuts % (Manual) Lymphocytes % (Manual) Seg Neutrophils # Seg Neutrophils # Man Lymphocytes # (Manual) POC ABG pH ABG pH POC ABG pCO2 POC ABG pO2 ABG pO2 ABG HCO3 ABG Base Excess ABG Hemoglobin Oxyhemoglobin Sodium Potassium Chloride Carbon Dioxide BUN Creatinine Glucose POC Glucose 188 H 199 H 235 H Lactic Acid Calcium AST Alkaline Phosphatase Albumin Urine WBC (Auto) 01/11/17 01/12/17 01/12/17 23:15 05:02 06:56 WBC RBC Hgb Hct MCV MCH RDW Plt Count Lymph % (Auto) Banks % (Auto) Eos % (Auto) Seg Neutrophils % Seg Neuts % (Manual) Lymphocytes % (Manual) Seg Neutrophils # Seg Neutrophils # Man Lymphocytes # (Manual) POC ABG pH ABG pH POC ABG pCO2 28.0 L POC ABG pO2 178 H ABG pO2 ABG HCO3 ABG Base Excess ABG Hemoglobin Oxyhemoglobin Sodium Potassium Chloride Carbon Dioxide BUN Creatinine Glucose POC Glucose 155 H 119 H Lactic Acid Calcium AST Alkaline Phosphatase Albumin Urine WBC (Auto) 01/12/17 01/13/17 01/13/17 14:50 03:37 03:37 WBC RBC 3.61 L Hgb 9.3 L Hct 28.0 L MCV 78 L MCH 26 L RDW 18.2 H Plt Count Lymph % (Auto) Banks % (Auto) Eos % (Auto) Seg Neutrophils % Seg Neuts % (Manual) Lymphocytes % (Manual) Seg Neutrophils # Seg Neutrophils # Man Lymphocytes # (Manual) POC ABG pH ABG pH POC ABG pCO2 POC ABG pO2 ABG pO2 ABG HCO3 ABG Base Excess ABG Hemoglobin Oxyhemoglobin Sodium Potassium Chloride 112.4 H Carbon Dioxide 19 L BUN Creatinine Glucose 118 H POC Glucose 164 H Lactic Acid Calcium 8.0 L AST Alkaline Phosphatase Albumin Urine WBC (Auto) 01/13/17 01/13/17 01/13/17 04:26 06:15 11:50 WBC RBC Hgb Hct MCV MCH RDW Plt Count Lymph % (Auto) Banks % (Auto) Eos % (Auto) Seg Neutrophils % Seg Neuts % (Manual) Lymphocytes % (Manual) Seg Neutrophils # Seg Neutrophils # Man Lymphocytes # (Manual) POC ABG pH 7.485 H ABG pH POC ABG pCO2 25.4 L POC ABG pO2 73 L ABG pO2 ABG HCO3 ABG Base Excess ABG Hemoglobin Oxyhemoglobin Sodium Potassium Chloride Carbon Dioxide BUN Creatinine Glucose POC Glucose 116 H 171 H Lactic Acid Calcium AST Alkaline Phosphatase Albumin Urine WBC (Auto) 01/13/17 01/14/17 01/14/17 17:31 00:02 04:50 WBC RBC 3.32 L Hgb 8.5 L Hct 26.1 L MCV 79 L MCH 26 L RDW 18.2 H Plt Count Lymph % (Auto) Banks % (Auto) 9.0 H Eos % (Auto) Seg Neutrophils % Seg Neuts % (Manual) Lymphocytes % (Manual) Seg Neutrophils # Seg Neutrophils # Man Lymphocytes # (Manual) POC ABG pH ABG pH POC ABG pCO2 POC ABG pO2 ABG pO2 ABG HCO3 ABG Base Excess ABG Hemoglobin Oxyhemoglobin Sodium Potassium Chloride Carbon Dioxide BUN Creatinine Glucose POC Glucose 203 H 157 H Lactic Acid Calcium AST Alkaline Phosphatase Albumin Urine WBC (Auto) 01/14/17 01/14/17 01/14/17 04:50 05:10 11:27 WBC RBC Hgb Hct MCV MCH RDW Plt Count Lymph % (Auto) Banks % (Auto) Eos % (Auto) Seg Neutrophils % Seg Neuts % (Manual) Lymphocytes % (Manual) Seg Neutrophils # Seg Neutrophils # Man Lymphocytes # (Manual) POC ABG pH ABG pH POC ABG pCO2 POC ABG pO2 ABG pO2 ABG HCO3 ABG Base Excess ABG Hemoglobin Oxyhemoglobin Sodium Potassium Chloride 112.5 H Carbon Dioxide BUN Creatinine Glucose 149 H POC Glucose 176 H 147 H Lactic Acid Calcium 8.1 L AST Alkaline Phosphatase Albumin Urine WBC (Auto) 01/14/17 01/14/17 01/15/17 14:07 16:52 00:04 WBC RBC Hgb Hct MCV MCH RDW Plt Count Lymph % (Auto) Banks % (Auto) Eos % (Auto) Seg Neutrophils % Seg Neuts % (Manual) Lymphocytes % (Manual) Seg Neutrophils # Seg Neutrophils # Man Lymphocytes # (Manual) POC ABG pH ABG pH POC ABG pCO2 POC ABG pO2 ABG pO2 ABG HCO3 ABG Base Excess ABG Hemoglobin Oxyhemoglobin Sodium Potassium Chloride Carbon Dioxide BUN Creatinine Glucose POC Glucose 131 H 193 H Lactic Acid Calcium AST Alkaline Phosphatase Albumin Urine WBC (Auto) 53.0 H 01/15/17 01/15/17 01/15/17 05:26 11:49 17:47 WBC RBC Hgb Hct MCV MCH RDW Plt Count Lymph % (Auto) Banks % (Auto) Eos % (Auto) Seg Neutrophils % Seg Neuts % (Manual) Lymphocytes % (Manual) Seg Neutrophils # Seg Neutrophils # Man Lymphocytes # (Manual) POC ABG pH ABG pH POC ABG pCO2 POC ABG pO2 ABG pO2 ABG HCO3 ABG Base Excess ABG Hemoglobin Oxyhemoglobin Sodium Potassium Chloride Carbon Dioxide BUN Creatinine Glucose POC Glucose 215 H 121 H 211 H Lactic Acid Calcium AST Alkaline Phosphatase Albumin Urine WBC (Auto) 01/15/17 01/16/17 01/16/17 21:33 04:30 05:28 WBC RBC Hgb Hct MCV MCH RDW Plt Count Lymph % (Auto) Banks % (Auto) Eos % (Auto) Seg Neutrophils % Seg Neuts % (Manual) Lymphocytes % (Manual) Seg Neutrophils # Seg Neutrophils # Man Lymphocytes # (Manual) POC ABG pH ABG pH 7.457 H POC ABG pCO2 POC ABG pO2 ABG pO2 55.1 L ABG HCO3 19.4 L ABG Base Excess -4.0 L ABG Hemoglobin 6.8 L Oxyhemoglobin 94.9 L Sodium Potassium Chloride Carbon Dioxide BUN Creatinine Glucose POC Glucose 275 H 271 H Lactic Acid Calcium AST Alkaline Phosphatase Albumin Urine WBC (Auto) 01/16/17 01/16/17 01/17/17 13:45 21:39 04:10 WBC 4.4 L RBC 2.98 L Hgb 7.7 L Hct 23.3 L MCV 78 L MCH 26 L RDW 18.1 H Plt Count Lymph % (Auto) Banks % (Auto) Eos % (Auto) Seg Neutrophils % Seg Neuts % (Manual) Lymphocytes % (Manual) Seg Neutrophils # Seg Neutrophils # Man Lymphocytes # (Manual) POC ABG pH ABG pH POC ABG pCO2 POC ABG pO2 ABG pO2 ABG HCO3 ABG Base Excess ABG Hemoglobin Oxyhemoglobin Sodium Potassium Chloride Carbon Dioxide BUN Creatinine Glucose POC Glucose 236 H 258 H Lactic Acid Calcium AST Alkaline Phosphatase Albumin Urine WBC (Auto) 01/17/17 01/17/17 01/17/17 04:10 04:35 12:23 WBC RBC Hgb Hct MCV MCH RDW Plt Count Lymph % (Auto) Banks % (Auto) Eos % (Auto) Seg Neutrophils % Seg Neuts % (Manual) Lymphocytes % (Manual) Seg Neutrophils # Seg Neutrophils # Man Lymphocytes # (Manual) POC ABG pH ABG pH POC ABG pCO2 POC ABG pO2 ABG pO2 160.3 H ABG HCO3 ABG Base Excess -2.3 L ABG Hemoglobin 7.9 L Oxyhemoglobin Sodium Potassium 3.3 L Chloride 108.7 H Carbon Dioxide 20 L BUN 8 L Creatinine Glucose 202 H POC Glucose 321 H Lactic Acid Calcium 7.6 L AST Alkaline Phosphatase Albumin Urine WBC (Auto) 01/17/17 01/18/17 01/18/17 16:01 05:07 12:09 WBC RBC Hgb Hct MCV MCH RDW Plt Count Lymph % (Auto) Banks % (Auto) Eos % (Auto) Seg Neutrophils % Seg Neuts % (Manual) Lymphocytes % (Manual) Seg Neutrophils # Seg Neutrophils # Man Lymphocytes # (Manual) POC ABG pH ABG pH POC ABG pCO2 POC ABG pO2 ABG pO2 ABG HCO3 ABG Base Excess ABG Hemoglobin Oxyhemoglobin Sodium Potassium Chloride Carbon Dioxide BUN Creatinine Glucose POC Glucose 239 H 155 H 203 H Lactic Acid Calcium AST Alkaline Phosphatase Albumin Urine WBC (Auto) 01/18/17 01/18/17 01/19/17 17:54 23:43 04:28 WBC RBC Hgb Hct MCV MCH RDW Plt Count Lymph % (Auto) Banks % (Auto) Eos % (Auto) Seg Neutrophils % Seg Neuts % (Manual) Lymphocytes % (Manual) Seg Neutrophils # Seg Neutrophils # Man Lymphocytes # (Manual) POC ABG pH ABG pH POC ABG pCO2 POC ABG pO2 ABG pO2 ABG HCO3 ABG Base Excess ABG Hemoglobin Oxyhemoglobin Sodium Potassium Chloride Carbon Dioxide BUN Creatinine Glucose POC Glucose 132 H 125 H 182 H Lactic Acid Calcium AST Alkaline Phosphatase Albumin Urine WBC (Auto) 01/19/17 01/19/17 01/20/17 12:11 17:23 00:12 WBC RBC Hgb Hct MCV MCH RDW Plt Count Lymph % (Auto) Banks % (Auto) Eos % (Auto) Seg Neutrophils % Seg Neuts % (Manual) Lymphocytes % (Manual) Seg Neutrophils # Seg Neutrophils # Man Lymphocytes # (Manual) POC ABG pH ABG pH POC ABG pCO2 POC ABG pO2 ABG pO2 ABG HCO3 ABG Base Excess ABG Hemoglobin Oxyhemoglobin Sodium Potassium Chloride Carbon Dioxide BUN Creatinine Glucose POC Glucose 153 H 66 L 139 H Lactic Acid Calcium AST Alkaline Phosphatase Albumin Urine WBC (Auto) 01/20/17 01/20/17 01/20/17 05:44 11:48 17:42 WBC RBC Hgb Hct MCV MCH RDW Plt Count Lymph % (Auto) Banks % (Auto) Eos % (Auto) Seg Neutrophils % Seg Neuts % (Manual) Lymphocytes % (Manual) Seg Neutrophils # Seg Neutrophils # Man Lymphocytes # (Manual) POC ABG pH ABG pH POC ABG pCO2 POC ABG pO2 ABG pO2 ABG HCO3 ABG Base Excess ABG Hemoglobin Oxyhemoglobin Sodium Potassium Chloride Carbon Dioxide BUN Creatinine Glucose POC Glucose 176 H 218 H 132 H Lactic Acid Calcium AST Alkaline Phosphatase Albumin Urine WBC (Auto) 01/20/17 01/21/17 01/21/17 23:43 05:34 11:17 WBC RBC Hgb Hct MCV MCH RDW Plt Count Lymph % (Auto) Banks % (Auto) Eos % (Auto) Seg Neutrophils % Seg Neuts % (Manual) Lymphocytes % (Manual) Seg Neutrophils # Seg Neutrophils # Man Lymphocytes # (Manual) POC ABG pH ABG pH POC ABG pCO2 POC ABG pO2 ABG pO2 ABG HCO3 ABG Base Excess ABG Hemoglobin Oxyhemoglobin Sodium Potassium Chloride Carbon Dioxide BUN Creatinine Glucose POC Glucose 178 H 106 H 213 H Lactic Acid Calcium AST Alkaline Phosphatase Albumin Urine WBC (Auto) 01/21/17 01/22/17 01/22/17 23:37 04:00 04:00 WBC RBC 3.26 L Hgb 8.3 L Hct 25.5 L MCV 78 L MCH 25 L RDW 17.9 H Plt Count Lymph % (Auto) Banks % (Auto) 7.9 H Eos % (Auto) 6.2 H Seg Neutrophils % Seg Neuts % (Manual) Lymphocytes % (Manual) Seg Neutrophils # Seg Neutrophils # Man Lymphocytes # (Manual) POC ABG pH ABG pH POC ABG pCO2 POC ABG pO2 ABG pO2 ABG HCO3 ABG Base Excess ABG Hemoglobin Oxyhemoglobin Sodium Potassium Chloride 95.5 L Carbon Dioxide 31 H D BUN Creatinine Glucose 134 H POC Glucose 140 H Lactic Acid Calcium AST 44 H Alkaline Phosphatase 379 H Albumin 2.7 L Urine WBC (Auto) 01/22/17 01/22/17 01/22/17 04:58 12:12 18:12 WBC RBC Hgb Hct MCV MCH RDW Plt Count Lymph % (Auto) Banks % (Auto) Eos % (Auto) Seg Neutrophils % Seg Neuts % (Manual) Lymphocytes % (Manual) Seg Neutrophils # Seg Neutrophils # Man Lymphocytes # (Manual) POC ABG pH ABG pH POC ABG pCO2 POC ABG pO2 ABG pO2 ABG HCO3 ABG Base Excess ABG Hemoglobin Oxyhemoglobin Sodium Potassium Chloride Carbon Dioxide BUN Creatinine Glucose POC Glucose 146 H 255 H 182 H Lactic Acid Calcium AST Alkaline Phosphatase Albumin Urine WBC (Auto) 01/22/17 01/23/17 01/23/17 23:39 04:43 12:12 WBC RBC Hgb Hct MCV MCH RDW Plt Count Lymph % (Auto) Banks % (Auto) Eos % (Auto) Seg Neutrophils % Seg Neuts % (Manual) Lymphocytes % (Manual) Seg Neutrophils # Seg Neutrophils # Man Lymphocytes # (Manual) POC ABG pH ABG pH POC ABG pCO2 POC ABG pO2 ABG pO2 ABG HCO3 ABG Base Excess ABG Hemoglobin Oxyhemoglobin Sodium Potassium Chloride Carbon Dioxide BUN Creatinine Glucose POC Glucose 134 H 218 H 128 H Lactic Acid Calcium AST Alkaline Phosphatase Albumin Urine WBC (Auto) 01/23/17 01/24/17 01/24/17 17:36 00:08 05:16 WBC RBC Hgb Hct MCV MCH RDW Plt Count Lymph % (Auto) Banks % (Auto) Eos % (Auto) Seg Neutrophils % Seg Neuts % (Manual) Lymphocytes % (Manual) Seg Neutrophils # Seg Neutrophils # Man Lymphocytes # (Manual) POC ABG pH ABG pH POC ABG pCO2 POC ABG pO2 ABG pO2 ABG HCO3 ABG Base Excess ABG Hemoglobin Oxyhemoglobin Sodium Potassium Chloride Carbon Dioxide BUN Creatinine Glucose POC Glucose 156 H 129 H 169 H Lactic Acid Calcium AST Alkaline Phosphatase Albumin Urine WBC (Auto) 01/24/17 01/24/17 01/24/17 11:40 17:43 23:23 WBC RBC Hgb Hct MCV MCH RDW Plt Count Lymph % (Auto) Banks % (Auto) Eos % (Auto) Seg Neutrophils % Seg Neuts % (Manual) Lymphocytes % (Manual) Seg Neutrophils # Seg Neutrophils # Man Lymphocytes # (Manual) POC ABG pH ABG pH POC ABG pCO2 POC ABG pO2 ABG pO2 ABG HCO3 ABG Base Excess ABG Hemoglobin Oxyhemoglobin Sodium Potassium Chloride Carbon Dioxide BUN Creatinine Glucose POC Glucose 187 H 215 H 222 H Lactic Acid Calcium AST Alkaline Phosphatase Albumin Urine WBC (Auto) 01/25/17 01/25/17 01/25/17 04:56 11:52 17:37 WBC RBC Hgb Hct MCV MCH RDW Plt Count Lymph % (Auto) Banks % (Auto) Eos % (Auto) Seg Neutrophils % Seg Neuts % (Manual) Lymphocytes % (Manual) Seg Neutrophils # Seg Neutrophils # Man Lymphocytes # (Manual) POC ABG pH ABG pH POC ABG pCO2 POC ABG pO2 ABG pO2 ABG HCO3 ABG Base Excess ABG Hemoglobin Oxyhemoglobin Sodium Potassium Chloride Carbon Dioxide BUN Creatinine Glucose POC Glucose 210 H 284 H 218 H Lactic Acid Calcium AST Alkaline Phosphatase Albumin Urine WBC (Auto) 01/26/17 01/26/17 01/26/17 00:02 05:33 12:17 WBC RBC Hgb Hct MCV MCH RDW Plt Count Lymph % (Auto) Banks % (Auto) Eos % (Auto) Seg Neutrophils % Seg Neuts % (Manual) Lymphocytes % (Manual) Seg Neutrophils # Seg Neutrophils # Man Lymphocytes # (Manual) POC ABG pH ABG pH POC ABG pCO2 POC ABG pO2 ABG pO2 ABG HCO3 ABG Base Excess ABG Hemoglobin Oxyhemoglobin Sodium Potassium Chloride Carbon Dioxide BUN Creatinine Glucose POC Glucose 192 H 199 H 227 H Lactic Acid Calcium AST Alkaline Phosphatase Albumin Urine WBC (Auto) 01/26/17 01/26/17 01/27/17 17:50 23:57 05:31 WBC RBC Hgb Hct MCV MCH RDW Plt Count Lymph % (Auto) Banks % (Auto) Eos % (Auto) Seg Neutrophils % Seg Neuts % (Manual) Lymphocytes % (Manual) Seg Neutrophils # Seg Neutrophils # Man Lymphocytes # (Manual) POC ABG pH ABG pH POC ABG pCO2 POC ABG pO2 ABG pO2 ABG HCO3 ABG Base Excess ABG Hemoglobin Oxyhemoglobin Sodium Potassium Chloride Carbon Dioxide BUN Creatinine Glucose POC Glucose 229 H 186 H 285 H Lactic Acid Calcium AST Alkaline Phosphatase Albumin Urine WBC (Auto) 01/27/17 01/27/17 01/27/17 11:42 17:47 23:58 WBC RBC Hgb Hct MCV MCH RDW Plt Count Lymph % (Auto) Banks % (Auto) Eos % (Auto) Seg Neutrophils % Seg Neuts % (Manual) Lymphocytes % (Manual) Seg Neutrophils # Seg Neutrophils # Man Lymphocytes # (Manual) POC ABG pH ABG pH POC ABG pCO2 POC ABG pO2 ABG pO2 ABG HCO3 ABG Base Excess ABG Hemoglobin Oxyhemoglobin Sodium Potassium Chloride Carbon Dioxide BUN Creatinine Glucose POC Glucose 260 H 329 H 225 H Lactic Acid Calcium AST Alkaline Phosphatase Albumin Urine WBC (Auto) 01/27/17 01/27/17 01/28/17 Unknown Unknown 03:44 WBC 12.1 H RBC 3.28 L 3.14 L Hgb 8.5 L 8.2 L Hct 25.5 L 24.1 L MCV 78 L 77 L MCH 26 L 26 L RDW 16.8 H 16.9 H Plt Count 601 H 567 H Lymph % (Auto) Banks % (Auto) Eos % (Auto) Seg Neutrophils % Seg Neuts % (Manual) Lymphocytes % (Manual) Seg Neutrophils # Seg Neutrophils # Man Lymphocytes # (Manual) POC ABG pH ABG pH POC ABG pCO2 POC ABG pO2 ABG pO2 ABG HCO3 ABG Base Excess ABG Hemoglobin Oxyhemoglobin Sodium 128 L Potassium 5.4 H Chloride 87.5 L Carbon Dioxide BUN 44 H Creatinine Glucose 250 H POC Glucose Lactic Acid Calcium AST Alkaline Phosphatase Albumin Urine WBC (Auto) 01/28/17 01/28/17 01/28/17 03:44 11:43 16:47 WBC RBC Hgb Hct MCV MCH RDW Plt Count Lymph % (Auto) Banks % (Auto) Eos % (Auto) Seg Neutrophils % Seg Neuts % (Manual) Lymphocytes % (Manual) Seg Neutrophils # Seg Neutrophils # Man Lymphocytes # (Manual) POC ABG pH ABG pH POC ABG pCO2 POC ABG pO2 ABG pO2 ABG HCO3 ABG Base Excess ABG Hemoglobin Oxyhemoglobin Sodium Potassium Chloride Carbon Dioxide BUN 42 H Creatinine Glucose 128 H POC Glucose 351 H 249 H Lactic Acid Calcium AST Alkaline Phosphatase Albumin Urine WBC (Auto) 01/28/17 01/29/17 01/29/17 17:52 05:25 05:25 WBC 13.6 H RBC 3.25 L Hgb 8.3 L Hct 25.1 L MCV 77 L MCH 26 L RDW 16.8 H Plt Count 514 H Lymph % (Auto) Banks % (Auto) Eos % (Auto) Seg Neutrophils % Seg Neuts % (Manual) Lymphocytes % (Manual) Seg Neutrophils # Seg Neutrophils # Man Lymphocytes # (Manual) POC ABG pH ABG pH POC ABG pCO2 POC ABG pO2 ABG pO2 ABG HCO3 ABG Base Excess ABG Hemoglobin Oxyhemoglobin Sodium Potassium Chloride 97.8 L Carbon Dioxide BUN 34 H Creatinine Glucose 222 H POC Glucose Lactic Acid Calcium AST Alkaline Phosphatase Albumin Urine WBC (Auto) > 182.0 H 01/29/17 01/29/17 01/29/17 09:32 11:56 18:11 WBC RBC Hgb Hct MCV MCH RDW Plt Count Lymph % (Auto) Banks % (Auto) Eos % (Auto) Seg Neutrophils % Seg Neuts % (Manual) Lymphocytes % (Manual) Seg Neutrophils # Seg Neutrophils # Man Lymphocytes # (Manual) POC ABG pH ABG pH POC ABG pCO2 POC ABG pO2 ABG pO2 ABG HCO3 ABG Base Excess ABG Hemoglobin Oxyhemoglobin Sodium Potassium Chloride Carbon Dioxide BUN Creatinine Glucose POC Glucose 261 H 215 H Lactic Acid 2.50 H* Calcium AST Alkaline Phosphatase Albumin Urine WBC (Auto) 01/29/17 01/30/17 01/30/17 23:55 05:31 05:31 WBC 15.2 H RBC 3.09 L Hgb 7.9 L Hct 23.9 L MCV 77 L MCH 26 L RDW 16.9 H Plt Count 569 H Lymph % (Auto) Banks % (Auto) Eos % (Auto) Seg Neutrophils % Seg Neuts % (Manual) Lymphocytes % (Manual) Seg Neutrophils # Seg Neutrophils # Man Lymphocytes # (Manual) POC ABG pH ABG pH POC ABG pCO2 POC ABG pO2 ABG pO2 ABG HCO3 ABG Base Excess ABG Hemoglobin Oxyhemoglobin Sodium Potassium Chloride Carbon Dioxide BUN 24 H Creatinine Glucose 235 H POC Glucose 176 H Lactic Acid Calcium AST Alkaline Phosphatase Albumin Urine WBC (Auto) 01/30/17 01/30/17 01/30/17 05:34 11:38 17:58 WBC RBC Hgb Hct MCV MCH RDW Plt Count Lymph % (Auto) Banks % (Auto) Eos % (Auto) Seg Neutrophils % Seg Neuts % (Manual) Lymphocytes % (Manual) Seg Neutrophils # Seg Neutrophils # Man Lymphocytes # (Manual) POC ABG pH ABG pH POC ABG pCO2 POC ABG pO2 ABG pO2 ABG HCO3 ABG Base Excess ABG Hemoglobin Oxyhemoglobin Sodium Potassium Chloride Carbon Dioxide BUN Creatinine Glucose POC Glucose 243 H 298 H 208 H Lactic Acid Calcium AST Alkaline Phosphatase Albumin Urine WBC (Auto) 01/30/17 01/31/17 01/31/17 23:29 04:39 04:39 WBC 11.4 H RBC 3.22 L Hgb 8.2 L Hct 24.9 L MCV 78 L MCH 25 L RDW 17.2 H Plt Count 576 H Lymph % (Auto) Banks % (Auto) Eos % (Auto) Seg Neutrophils % Seg Neuts % (Manual) Lymphocytes % (Manual) Seg Neutrophils # Seg Neutrophils # Man Lymphocytes # (Manual) POC ABG pH ABG pH POC ABG pCO2 POC ABG pO2 ABG pO2 ABG HCO3 ABG Base Excess ABG Hemoglobin Oxyhemoglobin Sodium Potassium Chloride Carbon Dioxide BUN Creatinine 0.7 L Glucose 223 H POC Glucose 245 H Lactic Acid Calcium AST Alkaline Phosphatase Albumin Urine WBC (Auto) 01/31/17 01/31/17 01/31/17 05:57 12:23 17:41 WBC RBC Hgb Hct MCV MCH RDW Plt Count Lymph % (Auto) Banks % (Auto) Eos % (Auto) Seg Neutrophils % Seg Neuts % (Manual) Lymphocytes % (Manual) Seg Neutrophils # Seg Neutrophils # Man Lymphocytes # (Manual) POC ABG pH ABG pH POC ABG pCO2 POC ABG pO2 ABG pO2 ABG HCO3 ABG Base Excess ABG Hemoglobin Oxyhemoglobin Sodium Potassium Chloride Carbon Dioxide BUN Creatinine Glucose POC Glucose 264 H 252 H 208 H Lactic Acid Calcium AST Alkaline Phosphatase Albumin Urine WBC (Auto) 01/31/17 01/31/17 02/01/17 18:55 22:59 03:38 WBC RBC 2.81 L Hgb 7.4 L Hct 22.1 L MCV 79 L MCH 27 L RDW 17.0 H Plt Count 540 H Lymph % (Auto) Banks % (Auto) Eos % (Auto) Seg Neutrophils % Seg Neuts % (Manual) Lymphocytes % (Manual) Seg Neutrophils # Seg Neutrophils # Man Lymphocytes # (Manual) POC ABG pH ABG pH POC ABG pCO2 32.8 L POC ABG pO2 ABG pO2 ABG HCO3 ABG Base Excess ABG Hemoglobin Oxyhemoglobin Sodium Potassium Chloride Carbon Dioxide BUN Creatinine Glucose POC Glucose 40 L Lactic Acid Calcium AST Alkaline Phosphatase Albumin Urine WBC (Auto) 02/01/17 02/01/17 02/01/17 03:38 05:17 12:19 WBC RBC Hgb Hct MCV MCH RDW Plt Count Lymph % (Auto) Banks % (Auto) Eos % (Auto) Seg Neutrophils % Seg Neuts % (Manual) Lymphocytes % (Manual) Seg Neutrophils # Seg Neutrophils # Man Lymphocytes # (Manual) POC ABG pH ABG pH POC ABG pCO2 POC ABG pO2 ABG pO2 ABG HCO3 ABG Base Excess ABG Hemoglobin Oxyhemoglobin Sodium Potassium Chloride Carbon Dioxide 21 L BUN Creatinine 0.7 L Glucose POC Glucose 140 H 213 H Lactic Acid Calcium AST Alkaline Phosphatase Albumin Urine WBC (Auto) 02/01/17 02/01/17 02/02/17 16:44 23:59 05:14 WBC RBC Hgb Hct MCV MCH RDW Plt Count Lymph % (Auto) Banks % (Auto) Eos % (Auto) Seg Neutrophils % Seg Neuts % (Manual) Lymphocytes % (Manual) Seg Neutrophils # Seg Neutrophils # Man Lymphocytes # (Manual) POC ABG pH ABG pH POC ABG pCO2 POC ABG pO2 ABG pO2 ABG HCO3 ABG Base Excess ABG Hemoglobin Oxyhemoglobin Sodium Potassium Chloride Carbon Dioxide BUN Creatinine Glucose POC Glucose 172 H 181 H 194 H Lactic Acid Calcium AST Alkaline Phosphatase Albumin Urine WBC (Auto) 02/02/17 02/02/17 02/02/17 11:24 11:46 11:46 WBC RBC 2.94 L Hgb 7.5 L Hct 23.0 L MCV 78 L MCH 25 L RDW 16.9 H Plt Count 520 H Lymph % (Auto) Banks % (Auto) Eos % (Auto) Seg Neutrophils % Seg Neuts % (Manual) Lymphocytes % (Manual) Seg Neutrophils # Seg Neutrophils # Man Lymphocytes # (Manual) POC ABG pH ABG pH POC ABG pCO2 POC ABG pO2 ABG pO2 ABG HCO3 ABG Base Excess ABG Hemoglobin Oxyhemoglobin Sodium Potassium Chloride Carbon Dioxide BUN Creatinine 0.6 L Glucose 189 H POC Glucose 209 H Lactic Acid Calcium 8.1 L AST Alkaline Phosphatase Albumin Urine WBC (Auto) 02/02/17 02/02/17 02/03/17 17:47 23:32 05:53 WBC RBC Hgb Hct MCV MCH RDW Plt Count Lymph % (Auto) Banks % (Auto) Eos % (Auto) Seg Neutrophils % Seg Neuts % (Manual) Lymphocytes % (Manual) Seg Neutrophils # Seg Neutrophils # Man Lymphocytes # (Manual) POC ABG pH ABG pH POC ABG pCO2 POC ABG pO2 ABG pO2 ABG HCO3 ABG Base Excess ABG Hemoglobin Oxyhemoglobin Sodium Potassium Chloride Carbon Dioxide BUN Creatinine Glucose POC Glucose 147 H 176 H 224 H Lactic Acid Calcium AST Alkaline Phosphatase Albumin Urine WBC (Auto) 02/03/17 02/03/17 02/03/17 11:19 16:59 23:38 WBC RBC Hgb Hct MCV MCH RDW Plt Count Lymph % (Auto) Banks % (Auto) Eos % (Auto) Seg Neutrophils % Seg Neuts % (Manual) Lymphocytes % (Manual) Seg Neutrophils # Seg Neutrophils # Man Lymphocytes # (Manual) POC ABG pH ABG pH POC ABG pCO2 POC ABG pO2 ABG pO2 ABG HCO3 ABG Base Excess ABG Hemoglobin Oxyhemoglobin Sodium Potassium Chloride Carbon Dioxide BUN Creatinine Glucose POC Glucose 228 H 189 H 191 H Lactic Acid Calcium AST Alkaline Phosphatase Albumin Urine WBC (Auto) 02/04/17 02/04/17 02/04/17 05:45 11:20 17:20 WBC RBC Hgb Hct MCV MCH RDW Plt Count Lymph % (Auto) Banks % (Auto) Eos % (Auto) Seg Neutrophils % Seg Neuts % (Manual) Lymphocytes % (Manual) Seg Neutrophils # Seg Neutrophils # Man Lymphocytes # (Manual) POC ABG pH ABG pH POC ABG pCO2 POC ABG pO2 ABG pO2 ABG HCO3 ABG Base Excess ABG Hemoglobin Oxyhemoglobin Sodium Potassium Chloride Carbon Dioxide BUN Creatinine Glucose POC Glucose 251 H 243 H 163 H Lactic Acid Calcium AST Alkaline Phosphatase Albumin Urine WBC (Auto) 02/05/17 02/05/17 02/05/17 00:17 05:38 12:38 WBC RBC Hgb Hct MCV MCH RDW Plt Count Lymph % (Auto) Banks % (Auto) Eos % (Auto) Seg Neutrophils % Seg Neuts % (Manual) Lymphocytes % (Manual) Seg Neutrophils # Seg Neutrophils # Man Lymphocytes # (Manual) POC ABG pH ABG pH POC ABG pCO2 POC ABG pO2 ABG pO2 ABG HCO3 ABG Base Excess ABG Hemoglobin Oxyhemoglobin Sodium Potassium Chloride Carbon Dioxide BUN Creatinine Glucose POC Glucose 200 H 248 H 241 H Lactic Acid Calcium AST Alkaline Phosphatase Albumin Urine WBC (Auto) 02/05/17 02/05/17 02/06/17 16:29 23:56 05:30 WBC RBC Hgb Hct MCV MCH RDW Plt Count Lymph % (Auto) Banks % (Auto) Eos % (Auto) Seg Neutrophils % Seg Neuts % (Manual) Lymphocytes % (Manual) Seg Neutrophils # Seg Neutrophils # Man Lymphocytes # (Manual) POC ABG pH ABG pH POC ABG pCO2 POC ABG pO2 ABG pO2 ABG HCO3 ABG Base Excess ABG Hemoglobin Oxyhemoglobin Sodium Potassium Chloride Carbon Dioxide BUN Creatinine Glucose POC Glucose 257 H 258 H 120 H Lactic Acid Calcium AST Alkaline Phosphatase Albumin Urine WBC (Auto) 02/06/17 02/06/17 02/06/17 11:50 17:11 23:50 WBC RBC Hgb Hct MCV MCH RDW Plt Count Lymph % (Auto) Banks % (Auto) Eos % (Auto) Seg Neutrophils % Seg Neuts % (Manual) Lymphocytes % (Manual) Seg Neutrophils # Seg Neutrophils # Man Lymphocytes # (Manual) POC ABG pH ABG pH POC ABG pCO2 POC ABG pO2 ABG pO2 ABG HCO3 ABG Base Excess ABG Hemoglobin Oxyhemoglobin Sodium Potassium Chloride Carbon Dioxide BUN Creatinine Glucose POC Glucose 254 H 149 H 240 H Lactic Acid Calcium AST Alkaline Phosphatase Albumin Urine WBC (Auto) 02/07/17 02/07/17 02/07/17 05:22 11:15 18:33 WBC RBC Hgb Hct MCV MCH RDW Plt Count Lymph % (Auto) Banks % (Auto) Eos % (Auto) Seg Neutrophils % Seg Neuts % (Manual) Lymphocytes % (Manual) Seg Neutrophils # Seg Neutrophils # Man Lymphocytes # (Manual) POC ABG pH ABG pH POC ABG pCO2 POC ABG pO2 ABG pO2 ABG HCO3 ABG Base Excess ABG Hemoglobin Oxyhemoglobin Sodium Potassium Chloride Carbon Dioxide BUN Creatinine Glucose POC Glucose 258 H 239 H 176 H Lactic Acid Calcium AST Alkaline Phosphatase Albumin Urine WBC (Auto) 02/07/17 02/08/17 02/08/17 23:59 06:15 11:55 WBC RBC Hgb Hct MCV MCH RDW Plt Count Lymph % (Auto) Banks % (Auto) Eos % (Auto) Seg Neutrophils % Seg Neuts % (Manual) Lymphocytes % (Manual) Seg Neutrophils # Seg Neutrophils # Man Lymphocytes # (Manual) POC ABG pH ABG pH POC ABG pCO2 POC ABG pO2 ABG pO2 ABG HCO3 ABG Base Excess ABG Hemoglobin Oxyhemoglobin Sodium Potassium Chloride Carbon Dioxide BUN Creatinine Glucose POC Glucose 186 H 195 H 129 H Lactic Acid Calcium AST Alkaline Phosphatase Albumin Urine WBC (Auto) 02/08/17 02/08/17 02/09/17 16:55 23:51 05:51 WBC RBC Hgb Hct MCV MCH RDW Plt Count Lymph % (Auto) Banks % (Auto) Eos % (Auto) Seg Neutrophils % Seg Neuts % (Manual) Lymphocytes % (Manual) Seg Neutrophils # Seg Neutrophils # Man Lymphocytes # (Manual) POC ABG pH ABG pH POC ABG pCO2 POC ABG pO2 ABG pO2 ABG HCO3 ABG Base Excess ABG Hemoglobin Oxyhemoglobin Sodium Potassium Chloride Carbon Dioxide BUN Creatinine Glucose POC Glucose 246 H 262 H 295 H Lactic Acid Calcium AST Alkaline Phosphatase Albumin Urine WBC (Auto) 02/09/17 02/09/17 02/09/17 07:24 07:24 12:08 WBC 14.7 H RBC 3.39 L Hgb 8.9 L Hct 26.4 L MCV 78 L MCH 26 L RDW 18.4 H Plt Count 670 H Lymph % (Auto) 11.8 L Banks % (Auto) Eos % (Auto) Seg Neutrophils % 81.2 H Seg Neuts % (Manual) Lymphocytes % (Manual) Seg Neutrophils # 11.9 H Seg Neutrophils # Man Lymphocytes # (Manual) POC ABG pH ABG pH POC ABG pCO2 POC ABG pO2 ABG pO2 ABG HCO3 ABG Base Excess ABG Hemoglobin Oxyhemoglobin Sodium Potassium Chloride 95.5 L Carbon Dioxide BUN 52 H Creatinine Glucose 277 H POC Glucose 236 H Lactic Acid Calcium AST Alkaline Phosphatase Albumin Urine WBC (Auto) 02/09/17 02/10/17 02/10/17 18:39 00:01 05:44 WBC RBC Hgb Hct MCV MCH RDW Plt Count Lymph % (Auto) Banks % (Auto) Eos % (Auto) Seg Neutrophils % Seg Neuts % (Manual) Lymphocytes % (Manual) Seg Neutrophils # Seg Neutrophils # Man Lymphocytes # (Manual) POC ABG pH ABG pH POC ABG pCO2 POC ABG pO2 ABG pO2 ABG HCO3 ABG Base Excess ABG Hemoglobin Oxyhemoglobin Sodium Potassium Chloride Carbon Dioxide BUN Creatinine Glucose POC Glucose 151 H 210 H 201 H Lactic Acid Calcium AST Alkaline Phosphatase Albumin Urine WBC (Auto) 02/10/17 02/10/17 02/10/17 11:21 17:29 23:56 WBC RBC Hgb Hct MCV MCH RDW Plt Count Lymph % (Auto) Banks % (Auto) Eos % (Auto) Seg Neutrophils % Seg Neuts % (Manual) Lymphocytes % (Manual) Seg Neutrophils # Seg Neutrophils # Man Lymphocytes # (Manual) POC ABG pH ABG pH POC ABG pCO2 POC ABG pO2 ABG pO2 ABG HCO3 ABG Base Excess ABG Hemoglobin Oxyhemoglobin Sodium Potassium Chloride Carbon Dioxide BUN Creatinine Glucose POC Glucose 233 H 167 H 191 H Lactic Acid Calcium AST Alkaline Phosphatase Albumin Urine WBC (Auto)
[2017-02-11] MEDS: TYLENOL FEEDTUBE PRN (21:17)
[2017-02-12] MEDS: NOVOLOG SUB-Q SCH ×4 (00:17→19:27)
[2017-02-12] MEDS: SYNTHROID PO SCH (06:05)
[2017-02-12] MEDS: NORMODYNE PO SCH ×2 (10:08→22:04)
[2017-02-12] MEDS: LEVEMIR (NF) SUB-Q SCH (10:08)
[2017-02-12] MEDS: PEPCID PO SCH ×2 (10:10→22:04)
[2017-02-12] MEDS: HEPARIN SUB-Q SCH ×2 (10:10→22:04)
--- NOTE | 2017-02-12 15:47 | Progress Note ---
Assessment and Plan Imp: 1. Hypoglycemia/hypothermia -> suspect due to too much insulin 2. Hypothyroidism; doubt myxedema coma with normal free T4 3. Acute respiratory failure, hypoxia 4. UTI/SIRS 5. Metabolic encephalopathy Rec: 1. GI/DVT PPx/TFs 2. Reviewed chart; ethics note 01/18/17 recommended AND and "hospice"; trying to get guardianship to sign necessary orders for this (however, I was told they are not willing to sign for withdrawal of ventilator); further care felt to be futile and would only prolong potential suffering without affecting ultimate outcome 3. Comfort care, no escalation of care; would not check any further labs, etc. 4. Poor prognosis Unable to locate family. Subjective Date of service: 02/12/17 Principal diagnosis: Acute respiratory failure,encephalopathy Interval history: No events. On vent. Unresponsive. Active Medications Acetaminophen (Tylenol) 650 mg FEEDTUBE Q6H PRN PRN Reason: Non Cardiac Pain Or Temp>101 Last Admin: 02/11/17 21:17 Dose: 650 mg Lipase/Protease/Amylase (Pancreaze Dr 10,500 Unit) 1 each FEEDTUBE PRN PRN PRN Reason: For Clogged Feeding Tube Dextrose (D50w (25gm) Vial) 50 gm IV PRN PRN PRN Reason: Hypoglycemia Famotidine (Pepcid) 20 mg PO BID [facility] Last Admin: 02/12/17 10:10 Dose: 20 mg Heparin Sodium (Porcine) (Heparin) 5,000 unit SUB-Q Q12HR [facility] Last Admin: 02/12/17 10:10 Dose: 5,000 unit Hydralazine HCl (Apresoline) 10 mg IV Q4HR PRN PRN Reason: Hypertension Last Admin: 02/02/17 06:14 Dose: 10 mg Hydrophilic Ointment (Vaseline Lip Therapy) 1 applic TP Q2HR PRN PRN Reason: Dry Lips Insulin Aspart (Novolog) 0 units SUB-Q Q6HR [facility] PRN Reason: Protocol Last Admin: 02/12/17 13:12 Dose: 3 units Insulin Detemir (Levemir) 10 units SUB-Q DAILY [facility] Last Admin: 02/12/17 10:08 Dose: 10 units Labetalol HCl (Normodyne) 200 mg PO BID [facility] Last Admin: 02/12/17 10:08 Dose: 200 mg Levothyroxine Sodium (Synthroid) 100 mcg PO DAILY@0600 [facility] Last Admin: 02/12/17 06:05 Dose: 100 mcg Loperamide HCl (Imodium A-D) 2 mg PO Q2H PRN PRN Reason: Diarrhea Last Admin: 02/08/17 09:36 Dose: 2 mg Multi-Ingred Cream/Lotion/Oil/Oint (Artificial Tears Ophth Oint) 1 applic OU Q4HR PRN PRN Reason: Dry Eye(s) Simple Syrup (Simple Syrup) 15 ml FEEDTUBE PRN PRN PRN Reason: Hypoglycemia Last Admin: 01/31/17 23:19 Dose: 15 ml Simple Syrup (Simple Syrup) 30 ml FEEDTUBE PRN PRN PRN Reason: Hypoglycemia Sodium Bicarbonate (Sodium Bicarbonate) 325 mg FEEDTUBE PRN PRN PRN Reason: For Clogged Feeding Tube Objective Vital Signs - 12hr 02/12/17 02/12/17 02/12/17 03:57 04:00 05:00 Temperature Pulse Rate 68 67 Pulse Rate [ 67 From Monitor] Respiratory 17 Rate Blood Pressure 146/84 147/84 147/89 O2 Sat by Pulse 100 100 100 Oximetry 02/12/17 02/12/17 02/12/17 06:00 07:00 07:26 Temperature 98.4 F Pulse Rate 65 60 Pulse Rate [ From Monitor] Respiratory 13 14 Rate Blood Pressure 161/87 146/80 O2 Sat by Pulse 100 100 Oximetry 02/12/17 02/12/17 02/12/17 08:00 08:07 09:00 Temperature Pulse Rate 61 63 63 Pulse Rate [ From Monitor] Respiratory 16 18 Rate Blood Pressure 157/85 157/85 154/84 O2 Sat by Pulse 100 100 100 Oximetry 02/12/17 02/12/17 02/12/17 10:00 10:08 10:29 Temperature Pulse Rate 66 66 64 Pulse Rate [ From Monitor] Respiratory 17 Rate Blood Pressure 147/83 147/83 O2 Sat by Pulse 100 Oximetry 02/12/17 02/12/17 02/12/17 11:00 12:00 13:00 Temperature 99.2 F Pulse Rate 64 62 65 Pulse Rate [ From Monitor] Respiratory 15 14 23 Rate Blood Pressure 161/79 146/78 133/71 O2 Sat by Pulse 100 100 100 Oximetry 02/12/17 02/12/17 02/12/17 13:30 14:00 14:30 Temperature Pulse Rate 62 60 59 L Pulse Rate [ From Monitor] Respiratory 15 13 12 Rate Blood Pressure 133/71 162/82 144/77 O2 Sat by Pulse 100 100 100 Oximetry 02/12/17 02/12/17 15:00 15:30 Temperature Pulse Rate 61 62 Pulse Rate [ From Monitor] Respiratory 17 14 Rate Blood Pressure 160/89 126/72 O2 Sat by Pulse 100 100 Oximetry Constitutional: comatose, other (orally intubated, on vent) Eyes: non-icteric ENT: oropharynx moist Neck: supple Effort: normal Ascultation: Bilateral: clear Cardiovascular: regular rate and rhythm (no mrg) Gastrointestinal: normoactive bowel sounds, soft, non-tender, non-distended Integumentary: normal Extremities: no cyanosis, no edema, pink and warm Neurologic: other (unresponsive, flaccid extremities) Psychiatric: other (unable to obtain) CBC and BMP: 02/09/17 07:24 02/09/17 07:24 ABG, PT/INR, D-dimer: ABG POC ABG pH 7.442 (7.35-7.45) 01/31/17 18:55 ABG pH 7.420 pH Units (7.350-7.450) 01/17/17 04:35 POC ABG pCO2 32.8 (35-45) L 01/31/17 18:55 ABG pCO2 34.5 mm Hg 01/17/17 04:35 POC ABG pO2 82 (80-105) 01/31/17 18:55 ABG pO2 160.3 mm Hg (80.0-90.0) H 01/17/17 04:35 POC ABG HCO3 22.4 01/31/17 18:55 POC ABG Total CO2 23 01/31/17 18:55 POC ABG O2 Sat 97 01/31/17 18:55 ABG O2 Saturation 99.0 % (95.0-99.0) 01/17/17 04:35 PT/INR, D-dimer PT 14.1 Sec. (12.2-14.9) 01/17/17 04:10 INR 1.04 (0.87-1.13) 01/17/17 04:10 Abnormal lab findings: Abnormal Labs 1001/09/17 01/09/17 12:49 13:13 14:21 WBC RBC Hgb Hct MCV MCH RDW Plt Count Lymph % (Auto) [place] % (Auto) Eos % (Auto) Seg Neutrophils % Seg Neuts % (Manual) Lymphocytes % (Manual) Seg Neutrophils # Seg Neutrophils # Man Lymphocytes # (Manual) POC ABG pH ABG pH POC ABG pCO2 POC ABG pO2 ABG pO2 ABG HCO3 ABG Base Excess ABG Hemoglobin Oxyhemoglobin Sodium Potassium Chloride Carbon Dioxide BUN Creatinine Glucose POC Glucose < 40 L 128 H 65 L Lactic Acid Calcium AST Alkaline Phosphatase Albumin Urine WBC (Auto) 01/09/17 01/09/17 01/09/17 15:09 16:28 17:14 WBC RBC Hgb Hct MCV MCH RDW Plt Count Lymph % (Auto) [place] % (Auto) Eos % (Auto) Seg Neutrophils % Seg Neuts % (Manual) Lymphocytes % (Manual) Seg Neutrophils # Seg Neutrophils # Man Lymphocytes # (Manual) POC ABG pH ABG pH POC ABG pCO2 POC ABG pO2 ABG pO2 ABG HCO3 ABG Base Excess ABG Hemoglobin Oxyhemoglobin Sodium Potassium Chloride Carbon Dioxide BUN Creatinine Glucose POC Glucose 120 H 44 L 112 H Lactic Acid Calcium AST Alkaline Phosphatase Albumin Urine WBC (Auto) 01/10/17 01/10/17 01/10/17 04:30 04:30 05:41 WBC 24.1 H RBC 3.38 L Hgb 8.5 L Hct 26.0 L MCV 77 L MCH 25 L RDW 17.9 H Plt Count 474 H Lymph % (Auto) [place] % (Auto) Eos % (Auto) Seg Neutrophils % Seg Neuts % (Manual) 88.0 H Lymphocytes % (Manual) 4.0 L Seg Neutrophils # Seg Neutrophils # Man 21.2 H Lymphocytes # (Manual) 1.0 L POC ABG pH ABG pH POC ABG pCO2 POC ABG pO2 ABG pO2 ABG HCO3 ABG Base Excess ABG Hemoglobin Oxyhemoglobin Sodium Potassium Chloride Carbon Dioxide 17 L BUN 27 H Creatinine Glucose POC Glucose 68 L Lactic Acid Calcium 7.5 L AST Alkaline Phosphatase Albumin Urine WBC (Auto) 01/10/17 01/10/17 01/10/17 05:45 07:47 10:50 WBC RBC Hgb Hct MCV MCH RDW Plt Count Lymph % (Auto) [place] % (Auto) Eos % (Auto) Seg Neutrophils % Seg Neuts % (Manual) Lymphocytes % (Manual) Seg Neutrophils # Seg Neutrophils # Man Lymphocytes # (Manual) POC ABG pH ABG pH POC ABG pCO2 26.6 L POC ABG pO2 207 H ABG pO2 ABG HCO3 ABG Base Excess ABG Hemoglobin Oxyhemoglobin Sodium Potassium Chloride Carbon Dioxide BUN Creatinine Glucose POC Glucose 148 H 165 H Lactic Acid Calcium AST Alkaline Phosphatase Albumin Urine WBC (Auto) 01/10/17 01/10/17 01/10/17 13:41 20:20 21:39 WBC RBC Hgb Hct MCV MCH RDW Plt Count Lymph % (Auto) [place] % (Auto) Eos % (Auto) Seg Neutrophils % Seg Neuts % (Manual) Lymphocytes % (Manual) Seg Neutrophils # Seg Neutrophils # Man Lymphocytes # (Manual) POC ABG pH ABG pH POC ABG pCO2 POC ABG pO2 ABG pO2 ABG HCO3 ABG Base Excess ABG Hemoglobin Oxyhemoglobin Sodium Potassium Chloride Carbon Dioxide BUN Creatinine Glucose POC Glucose 114 H 150 H 175 H Lactic Acid Calcium AST Alkaline Phosphatase Albumin Urine WBC (Auto) 01/10/17 01/11/17 01/11/17 23:24 00:19 04:06 WBC RBC Hgb Hct MCV MCH RDW Plt Count Lymph % (Auto) [place] % (Auto) Eos % (Auto) Seg Neutrophils % Seg Neuts % (Manual) Lymphocytes % (Manual) Seg Neutrophils # Seg Neutrophils # Man Lymphocytes # (Manual) POC ABG pH 7.463 H ABG pH POC ABG pCO2 26.2 L POC ABG pO2 185 H ABG pO2 ABG HCO3 ABG Base Excess ABG Hemoglobin Oxyhemoglobin Sodium Potassium Chloride Carbon Dioxide BUN Creatinine Glucose POC Glucose 155 H 163 H Lactic Acid Calcium AST Alkaline Phosphatase Albumin Urine WBC (Auto) 01/11/17 01/11/17 01/11/17 05:20 05:20 06:21 WBC 15.2 H RBC 3.40 L Hgb 8.9 L Hct 26.3 L MCV 78 L MCH 26 L RDW 18.6 H Plt Count 462 H Lymph % (Auto) 13.2 L [place] % (Auto) Eos % (Auto) Seg Neutrophils % 80.8 H Seg Neuts % (Manual) Lymphocytes % (Manual) Seg Neutrophils # 12.3 H Seg Neutrophils # Man Lymphocytes # (Manual) POC ABG pH ABG pH POC ABG pCO2 POC ABG pO2 ABG pO2 ABG HCO3 ABG Base Excess ABG Hemoglobin Oxyhemoglobin Sodium Potassium 3.4 L Chloride 111.5 H Carbon Dioxide 17 L BUN Creatinine Glucose 147 H POC Glucose 139 H Lactic Acid Calcium 8.0 L AST Alkaline Phosphatase Albumin Urine WBC (Auto) 01/11/17 01/11/17 01/11/17 07:57 11:46 16:50 WBC RBC Hgb Hct MCV MCH RDW Plt Count Lymph % (Auto) [place] % (Auto) Eos % (Auto) Seg Neutrophils % Seg Neuts % (Manual) Lymphocytes % (Manual) Seg Neutrophils # Seg Neutrophils # Man Lymphocytes # (Manual) POC ABG pH ABG pH POC ABG pCO2 POC ABG pO2 ABG pO2 ABG HCO3 ABG Base Excess ABG Hemoglobin Oxyhemoglobin Sodium Potassium Chloride Carbon Dioxide BUN Creatinine Glucose POC Glucose 188 H 199 H 235 H Lactic Acid Calcium AST Alkaline Phosphatase Albumin Urine WBC (Auto) 01/11/17 01/12/17 01/12/17 23:15 05:02 06:56 WBC RBC Hgb Hct MCV MCH RDW Plt Count Lymph % (Auto) [place] % (Auto) Eos % (Auto) Seg Neutrophils % Seg Neuts % (Manual) Lymphocytes % (Manual) Seg Neutrophils # Seg Neutrophils # Man Lymphocytes # (Manual) POC ABG pH ABG pH POC ABG pCO2 28.0 L POC ABG pO2 178 H ABG pO2 ABG HCO3 ABG Base Excess ABG Hemoglobin Oxyhemoglobin Sodium Potassium Chloride Carbon Dioxide BUN Creatinine Glucose POC Glucose 155 H 119 H Lactic Acid Calcium AST Alkaline Phosphatase Albumin Urine WBC (Auto) 01/12/17 01/13/17 01/13/17 14:50 03:37 03:37 WBC RBC 3.61 L Hgb 9.3 L Hct 28.0 L MCV 78 L MCH 26 L RDW 18.2 H Plt Count Lymph % (Auto) [place] % (Auto) Eos % (Auto) Seg Neutrophils % Seg Neuts % (Manual) Lymphocytes % (Manual) Seg Neutrophils # Seg Neutrophils # Man Lymphocytes # (Manual) POC ABG pH ABG pH POC ABG pCO2 POC ABG pO2 ABG pO2 ABG HCO3 ABG Base Excess ABG Hemoglobin Oxyhemoglobin Sodium Potassium Chloride 112.4 H Carbon Dioxide 19 L BUN Creatinine Glucose 118 H POC Glucose 164 H Lactic Acid Calcium 8.0 L AST Alkaline Phosphatase Albumin Urine WBC (Auto) 01/13/17 01/13/17 01/13/17 04:26 06:15 11:50 WBC RBC Hgb Hct MCV MCH RDW Plt Count Lymph % (Auto) [place] % (Auto) Eos % (Auto) Seg Neutrophils % Seg Neuts % (Manual) Lymphocytes % (Manual) Seg Neutrophils # Seg Neutrophils # Man Lymphocytes # (Manual) POC ABG pH 7.485 H ABG pH POC ABG pCO2 25.4 L POC ABG pO2 73 L ABG pO2 ABG HCO3 ABG Base Excess ABG Hemoglobin Oxyhemoglobin Sodium Potassium Chloride Carbon Dioxide BUN Creatinine Glucose POC Glucose 116 H 171 H Lactic Acid Calcium AST Alkaline Phosphatase Albumin Urine WBC (Auto) 01/13/17 01/14/17 01/14/17 17:31 00:02 04:50 WBC RBC 3.32 L Hgb 8.5 L Hct 26.1 L MCV 79 L MCH 26 L RDW 18.2 H Plt Count Lymph % (Auto) [place] % (Auto) 9.0 H Eos % (Auto) Seg Neutrophils % Seg Neuts % (Manual) Lymphocytes % (Manual) Seg Neutrophils # Seg Neutrophils # Man Lymphocytes # (Manual) POC ABG pH ABG pH POC ABG pCO2 POC ABG pO2 ABG pO2 ABG HCO3 ABG Base Excess ABG Hemoglobin Oxyhemoglobin Sodium Potassium Chloride Carbon Dioxide BUN Creatinine Glucose POC Glucose 203 H 157 H Lactic Acid Calcium AST Alkaline Phosphatase Albumin Urine WBC (Auto) 01/14/17 01/14/17 01/14/17 04:50 05:10 11:27 WBC RBC Hgb Hct MCV MCH RDW Plt Count Lymph % (Auto) [place] % (Auto) Eos % (Auto) Seg Neutrophils % Seg Neuts % (Manual) Lymphocytes % (Manual) Seg Neutrophils # Seg Neutrophils # Man Lymphocytes # (Manual) POC ABG pH ABG pH POC ABG pCO2 POC ABG pO2 ABG pO2 ABG HCO3 ABG Base Excess ABG Hemoglobin Oxyhemoglobin Sodium Potassium Chloride 112.5 H Carbon Dioxide BUN Creatinine Glucose 149 H POC Glucose 176 H 147 H Lactic Acid Calcium 8.1 L AST Alkaline Phosphatase Albumin Urine WBC (Auto) 01/14/17 01/14/17 01/15/17 14:07 16:52 00:04 WBC RBC Hgb Hct MCV MCH RDW Plt Count Lymph % (Auto) [place] % (Auto) Eos % (Auto) Seg Neutrophils % Seg Neuts % (Manual) Lymphocytes % (Manual) Seg Neutrophils # Seg Neutrophils # Man Lymphocytes # (Manual) POC ABG pH ABG pH POC ABG pCO2 POC ABG pO2 ABG pO2 ABG HCO3 ABG Base Excess ABG Hemoglobin Oxyhemoglobin Sodium Potassium Chloride Carbon Dioxide BUN Creatinine Glucose POC Glucose 131 H 193 H Lactic Acid Calcium AST Alkaline Phosphatase Albumin Urine WBC (Auto) 53.0 H 01/15/17 01/15/17 01/15/17 05:26 11:49 17:47 WBC RBC Hgb Hct MCV MCH RDW Plt Count Lymph % (Auto) [place] % (Auto) Eos % (Auto) Seg Neutrophils % Seg Neuts % (Manual) Lymphocytes % (Manual) Seg Neutrophils # Seg Neutrophils # Man Lymphocytes # (Manual) POC ABG pH ABG pH POC ABG pCO2 POC ABG pO2 ABG pO2 ABG HCO3 ABG Base Excess ABG Hemoglobin Oxyhemoglobin Sodium Potassium Chloride Carbon Dioxide BUN Creatinine Glucose POC Glucose 215 H 121 H 211 H Lactic Acid Calcium AST Alkaline Phosphatase Albumin Urine WBC (Auto) 01/15/17 01/16/17 01/16/17 21:33 04:30 05:28 WBC RBC Hgb Hct MCV MCH RDW Plt Count Lymph % (Auto) [place] % (Auto) Eos % (Auto) Seg Neutrophils % Seg Neuts % (Manual) Lymphocytes % (Manual) Seg Neutrophils # Seg Neutrophils # Man Lymphocytes # (Manual) POC ABG pH ABG pH 7.457 H POC ABG pCO2 POC ABG pO2 ABG pO2 55.1 L ABG HCO3 19.4 L ABG Base Excess -4.0 L ABG Hemoglobin 6.8 L Oxyhemoglobin 94.9 L Sodium Potassium Chloride Carbon Dioxide BUN Creatinine Glucose POC Glucose 275 H 271 H Lactic Acid Calcium AST Alkaline Phosphatase Albumin Urine WBC (Auto) 01/16/17 01/16/17 01/17/17 13:45 21:39 04:10 WBC 4.4 L RBC 2.98 L Hgb 7.7 L Hct 23.3 L MCV 78 L MCH 26 L RDW 18.1 H Plt Count Lymph % (Auto) [place] % (Auto) Eos % (Auto) Seg Neutrophils % Seg Neuts % (Manual) Lymphocytes % (Manual) Seg Neutrophils # Seg Neutrophils # Man Lymphocytes # (Manual) POC ABG pH ABG pH POC ABG pCO2 POC ABG pO2 ABG pO2 ABG HCO3 ABG Base Excess ABG Hemoglobin Oxyhemoglobin Sodium Potassium Chloride Carbon Dioxide BUN Creatinine Glucose POC Glucose 236 H 258 H Lactic Acid Calcium AST Alkaline Phosphatase Albumin Urine WBC (Auto) 01/17/17 01/17/17 01/17/17 04:10 04:35 12:23 WBC RBC Hgb Hct MCV MCH RDW Plt Count Lymph % (Auto) [place] % (Auto) Eos % (Auto) Seg Neutrophils % Seg Neuts % (Manual) Lymphocytes % (Manual) Seg Neutrophils # Seg Neutrophils # Man Lymphocytes # (Manual) POC ABG pH ABG pH POC ABG pCO2 POC ABG pO2 ABG pO2 160.3 H ABG HCO3 ABG Base Excess -2.3 L ABG Hemoglobin 7.9 L Oxyhemoglobin Sodium Potassium 3.3 L Chloride 108.7 H Carbon Dioxide 20 L BUN 8 L Creatinine Glucose 202 H POC Glucose 321 H Lactic Acid Calcium 7.6 L AST Alkaline Phosphatase Albumin Urine WBC (Auto) 01/17/17 01/18/17 01/18/17 16:01 05:07 12:09 WBC RBC Hgb Hct MCV MCH RDW Plt Count Lymph % (Auto) [place] % (Auto) Eos % (Auto) Seg Neutrophils % Seg Neuts % (Manual) Lymphocytes % (Manual) Seg Neutrophils # Seg Neutrophils # Man Lymphocytes # (Manual) POC ABG pH ABG pH POC ABG pCO2 POC ABG pO2 ABG pO2 ABG HCO3 ABG Base Excess ABG Hemoglobin Oxyhemoglobin Sodium Potassium Chloride Carbon Dioxide BUN Creatinine Glucose POC Glucose 239 H 155 H 203 H Lactic Acid Calcium AST Alkaline Phosphatase Albumin Urine WBC (Auto) 01/18/17 01/18/17 01/19/17 17:54 23:43 04:28 WBC RBC Hgb Hct MCV MCH RDW Plt Count Lymph % (Auto) [place] % (Auto) Eos % (Auto) Seg Neutrophils % Seg Neuts % (Manual) Lymphocytes % (Manual) Seg Neutrophils # Seg Neutrophils # Man Lymphocytes # (Manual) POC ABG pH ABG pH POC ABG pCO2 POC ABG pO2 ABG pO2 ABG HCO3 ABG Base Excess ABG Hemoglobin Oxyhemoglobin Sodium Potassium Chloride Carbon Dioxide BUN Creatinine Glucose POC Glucose 132 H 125 H 182 H Lactic Acid Calcium AST Alkaline Phosphatase Albumin Urine WBC (Auto) 01/19/17 01/19/17 01/20/17 12:11 17:23 00:12 WBC RBC Hgb Hct MCV MCH RDW Plt Count Lymph % (Auto) [place] % (Auto) Eos % (Auto) Seg Neutrophils % Seg Neuts % (Manual) Lymphocytes % (Manual) Seg Neutrophils # Seg Neutrophils # Man Lymphocytes # (Manual) POC ABG pH ABG pH POC ABG pCO2 POC ABG pO2 ABG pO2 ABG HCO3 ABG Base Excess ABG Hemoglobin Oxyhemoglobin Sodium Potassium Chloride Carbon Dioxide BUN Creatinine Glucose POC Glucose 153 H 66 L 139 H Lactic Acid Calcium AST Alkaline Phosphatase Albumin Urine WBC (Auto) 01/20/17 01/20/17 01/20/17 05:44 11:48 17:42 WBC RBC Hgb Hct MCV MCH RDW Plt Count Lymph % (Auto) [place] % (Auto) Eos % (Auto) Seg Neutrophils % Seg Neuts % (Manual) Lymphocytes % (Manual) Seg Neutrophils # Seg Neutrophils # Man Lymphocytes # (Manual) POC ABG pH ABG pH POC ABG pCO2 POC ABG pO2 ABG pO2 ABG HCO3 ABG Base Excess ABG Hemoglobin Oxyhemoglobin Sodium Potassium Chloride Carbon Dioxide BUN Creatinine Glucose POC Glucose 176 H 218 H 132 H Lactic Acid Calcium AST Alkaline Phosphatase Albumin Urine WBC (Auto) 01/20/17 01/21/17 01/21/17 23:43 05:34 11:17 WBC RBC Hgb Hct MCV MCH RDW Plt Count Lymph % (Auto) [place] % (Auto) Eos % (Auto) Seg Neutrophils % Seg Neuts % (Manual) Lymphocytes % (Manual) Seg Neutrophils # Seg Neutrophils # Man Lymphocytes # (Manual) POC ABG pH ABG pH POC ABG pCO2 POC ABG pO2 ABG pO2 ABG HCO3 ABG Base Excess ABG Hemoglobin Oxyhemoglobin Sodium Potassium Chloride Carbon Dioxide BUN Creatinine Glucose POC Glucose 178 H 106 H 213 H Lactic Acid Calcium AST Alkaline Phosphatase Albumin Urine WBC (Auto) 01/21/17 01/22/17 01/22/17 23:37 04:00 04:00 WBC RBC 3.26 L Hgb 8.3 L Hct 25.5 L MCV 78 L MCH 25 L RDW 17.9 H Plt Count Lymph % (Auto) [place] % (Auto) 7.9 H Eos % (Auto) 6.2 H Seg Neutrophils % Seg Neuts % (Manual) Lymphocytes % (Manual) Seg Neutrophils # Seg Neutrophils # Man Lymphocytes # (Manual) POC ABG pH ABG pH POC ABG pCO2 POC ABG pO2 ABG pO2 ABG HCO3 ABG Base Excess ABG Hemoglobin Oxyhemoglobin Sodium Potassium Chloride 95.5 L Carbon Dioxide 31 H D BUN Creatinine Glucose 134 H POC Glucose 140 H Lactic Acid Calcium AST 44 H Alkaline Phosphatase 379 H Albumin 2.7 L Urine WBC (Auto) 01/22/17 01/22/17 01/22/17 04:58 12:12 18:12 WBC RBC Hgb Hct MCV MCH RDW Plt Count Lymph % (Auto) [place] % (Auto) Eos % (Auto) Seg Neutrophils % Seg Neuts % (Manual) Lymphocytes % (Manual) Seg Neutrophils # Seg Neutrophils # Man Lymphocytes # (Manual) POC ABG pH ABG pH POC ABG pCO2 POC ABG pO2 ABG pO2 ABG HCO3 ABG Base Excess ABG Hemoglobin Oxyhemoglobin Sodium Potassium Chloride Carbon Dioxide BUN Creatinine Glucose POC Glucose 146 H 255 H 182 H Lactic Acid Calcium AST Alkaline Phosphatase Albumin Urine WBC (Auto) 01/22/17 01/23/17 01/23/17 23:39 04:43 12:12 WBC RBC Hgb Hct MCV MCH RDW Plt Count Lymph % (Auto) [place] % (Auto) Eos % (Auto) Seg Neutrophils % Seg Neuts % (Manual) Lymphocytes % (Manual) Seg Neutrophils # Seg Neutrophils # Man Lymphocytes # (Manual) POC ABG pH ABG pH POC ABG pCO2 POC ABG pO2 ABG pO2 ABG HCO3 ABG Base Excess ABG Hemoglobin Oxyhemoglobin Sodium Potassium Chloride Carbon Dioxide BUN Creatinine Glucose POC Glucose 134 H 218 H 128 H Lactic Acid Calcium AST Alkaline Phosphatase Albumin Urine WBC (Auto) 01/23/17 01/24/17 01/24/17 17:36 00:08 05:16 WBC RBC Hgb Hct MCV MCH RDW Plt Count Lymph % (Auto) [place] % (Auto) Eos % (Auto) Seg Neutrophils % Seg Neuts % (Manual) Lymphocytes % (Manual) Seg Neutrophils # Seg Neutrophils # Man Lymphocytes # (Manual) POC ABG pH ABG pH POC ABG pCO2 POC ABG pO2 ABG pO2 ABG HCO3 ABG Base Excess ABG Hemoglobin Oxyhemoglobin Sodium Potassium Chloride Carbon Dioxide BUN Creatinine Glucose POC Glucose 156 H 129 H 169 H Lactic Acid Calcium AST Alkaline Phosphatase Albumin Urine WBC (Auto) 01/24/17 01/24/17 01/24/17 11:40 17:43 23:23 WBC RBC Hgb Hct MCV MCH RDW Plt Count Lymph % (Auto) [place] % (Auto) Eos % (Auto) Seg Neutrophils % Seg Neuts % (Manual) Lymphocytes % (Manual) Seg Neutrophils # Seg Neutrophils # Man Lymphocytes # (Manual) POC ABG pH ABG pH POC ABG pCO2 POC ABG pO2 ABG pO2 ABG HCO3 ABG Base Excess ABG Hemoglobin Oxyhemoglobin Sodium Potassium Chloride Carbon Dioxide BUN Creatinine Glucose POC Glucose 187 H 215 H 222 H Lactic Acid Calcium AST Alkaline Phosphatase Albumin Urine WBC (Auto) 01/25/17 01/25/17 01/25/17 04:56 11:52 17:37 WBC RBC Hgb Hct MCV MCH RDW Plt Count Lymph % (Auto) [place] % (Auto) Eos % (Auto) Seg Neutrophils % Seg Neuts % (Manual) Lymphocytes % (Manual) Seg Neutrophils # Seg Neutrophils # Man Lymphocytes # (Manual) POC ABG pH ABG pH POC ABG pCO2 POC ABG pO2 ABG pO2 ABG HCO3 ABG Base Excess ABG Hemoglobin Oxyhemoglobin Sodium Potassium Chloride Carbon Dioxide BUN Creatinine Glucose POC Glucose 210 H 284 H 218 H Lactic Acid Calcium AST Alkaline Phosphatase Albumin Urine WBC (Auto) 01/26/17 01/26/17 01/26/17 00:02 05:33 12:17 WBC RBC Hgb Hct MCV MCH RDW Plt Count Lymph % (Auto) [place] % (Auto) Eos % (Auto) Seg Neutrophils % Seg Neuts % (Manual) Lymphocytes % (Manual) Seg Neutrophils # Seg Neutrophils # Man Lymphocytes # (Manual) POC ABG pH ABG pH POC ABG pCO2 POC ABG pO2 ABG pO2 ABG HCO3 ABG Base Excess ABG Hemoglobin Oxyhemoglobin Sodium Potassium Chloride Carbon Dioxide BUN Creatinine Glucose POC Glucose 192 H 199 H 227 H Lactic Acid Calcium AST Alkaline Phosphatase Albumin Urine WBC (Auto) 01/26/17 01/26/17 01/27/17 17:50 23:57 05:31 WBC RBC Hgb Hct MCV MCH RDW Plt Count Lymph % (Auto) [place] % (Auto) Eos % (Auto) Seg Neutrophils % Seg Neuts % (Manual) Lymphocytes % (Manual) Seg Neutrophils # Seg Neutrophils # Man Lymphocytes # (Manual) POC ABG pH ABG pH POC ABG pCO2 POC ABG pO2 ABG pO2 ABG HCO3 ABG Base Excess ABG Hemoglobin Oxyhemoglobin Sodium Potassium Chloride Carbon Dioxide BUN Creatinine Glucose POC Glucose 229 H 186 H 285 H Lactic Acid Calcium AST Alkaline Phosphatase Albumin Urine WBC (Auto) 01/27/17 01/27/17 01/27/17 11:42 17:47 23:58 WBC RBC Hgb Hct MCV MCH RDW Plt Count Lymph % (Auto) [place] % (Auto) Eos % (Auto) Seg Neutrophils % Seg Neuts % (Manual) Lymphocytes % (Manual) Seg Neutrophils # Seg Neutrophils # Man Lymphocytes # (Manual) POC ABG pH ABG pH POC ABG pCO2 POC ABG pO2 ABG pO2 ABG HCO3 ABG Base Excess ABG Hemoglobin Oxyhemoglobin Sodium Potassium Chloride Carbon Dioxide BUN Creatinine Glucose POC Glucose 260 H 329 H 225 H Lactic Acid Calcium AST Alkaline Phosphatase Albumin Urine WBC (Auto) 01/27/17 01/27/17 01/28/17 Unknown Unknown 03:44 WBC 12.1 H RBC 3.28 L 3.14 L Hgb 8.5 L 8.2 L Hct 25.5 L 24.1 L MCV 78 L 77 L MCH 26 L 26 L RDW 16.8 H 16.9 H Plt Count 601 H 567 H Lymph % (Auto) [place] % (Auto) Eos % (Auto) Seg Neutrophils % Seg Neuts % (Manual) Lymphocytes % (Manual) Seg Neutrophils # Seg Neutrophils # Man Lymphocytes # (Manual) POC ABG pH ABG pH POC ABG pCO2 POC ABG pO2 ABG pO2 ABG HCO3 ABG Base Excess ABG Hemoglobin Oxyhemoglobin Sodium 128 L Potassium 5.4 H Chloride 87.5 L Carbon Dioxide BUN 44 H Creatinine Glucose 250 H POC Glucose Lactic Acid Calcium AST Alkaline Phosphatase Albumin Urine WBC (Auto) 01/28/17 01/28/17 01/28/17 03:44 11:43 16:47 WBC RBC Hgb Hct MCV MCH RDW Plt Count Lymph % (Auto) [place] % (Auto) Eos % (Auto) Seg Neutrophils % Seg Neuts % (Manual) Lymphocytes % (Manual) Seg Neutrophils # Seg Neutrophils # Man Lymphocytes # (Manual) POC ABG pH ABG pH POC ABG pCO2 POC ABG pO2 ABG pO2 ABG HCO3 ABG Base Excess ABG Hemoglobin Oxyhemoglobin Sodium Potassium Chloride Carbon Dioxide BUN 42 H Creatinine Glucose 128 H POC Glucose 351 H 249 H Lactic Acid Calcium AST Alkaline Phosphatase Albumin Urine WBC (Auto) 01/28/17 01/29/17 01/29/17 17:52 05:25 05:25 WBC 13.6 H RBC 3.25 L Hgb 8.3 L Hct 25.1 L MCV 77 L MCH 26 L RDW 16.8 H Plt Count 514 H Lymph % (Auto) [place] % (Auto) Eos % (Auto) Seg Neutrophils % Seg Neuts % (Manual) Lymphocytes % (Manual) Seg Neutrophils # Seg Neutrophils # Man Lymphocytes # (Manual) POC ABG pH ABG pH POC ABG pCO2 POC ABG pO2 ABG pO2 ABG HCO3 ABG Base Excess ABG Hemoglobin Oxyhemoglobin Sodium Potassium Chloride 97.8 L Carbon Dioxide BUN 34 H Creatinine Glucose 222 H POC Glucose Lactic Acid Calcium AST Alkaline Phosphatase Albumin Urine WBC (Auto) > 182.0 H 01/29/17 01/29/17 01/29/17 09:32 11:56 18:11 WBC RBC Hgb Hct MCV MCH RDW Plt Count Lymph % (Auto) [place] % (Auto) Eos % (Auto) Seg Neutrophils % Seg Neuts % (Manual) Lymphocytes % (Manual) Seg Neutrophils # Seg Neutrophils # Man Lymphocytes # (Manual) POC ABG pH ABG pH POC ABG pCO2 POC ABG pO2 ABG pO2 ABG HCO3 ABG Base Excess ABG Hemoglobin Oxyhemoglobin Sodium Potassium Chloride Carbon Dioxide BUN Creatinine Glucose POC Glucose 261 H 215 H Lactic Acid 2.50 H* Calcium AST Alkaline Phosphatase Albumin Urine WBC (Auto) 01/29/17 01/30/17 01/30/17 23:55 05:31 05:31 WBC 15.2 H RBC 3.09 L Hgb 7.9 L Hct 23.9 L MCV 77 L MCH 26 L RDW 16.9 H Plt Count 569 H Lymph % (Auto) [place] % (Auto) Eos % (Auto) Seg Neutrophils % Seg Neuts % (Manual) Lymphocytes % (Manual) Seg Neutrophils # Seg Neutrophils # Man Lymphocytes # (Manual) POC ABG pH ABG pH POC ABG pCO2 POC ABG pO2 ABG pO2 ABG HCO3 ABG Base Excess ABG Hemoglobin Oxyhemoglobin Sodium Potassium Chloride Carbon Dioxide BUN 24 H Creatinine Glucose 235 H POC Glucose 176 H Lactic Acid Calcium AST Alkaline Phosphatase Albumin Urine WBC (Auto) 01/30/17 01/30/17 01/30/17 05:34 11:38 17:58 WBC RBC Hgb Hct MCV MCH RDW Plt Count Lymph % (Auto) [place] % (Auto) Eos % (Auto) Seg Neutrophils % Seg Neuts % (Manual) Lymphocytes % (Manual) Seg Neutrophils # Seg Neutrophils # Man Lymphocytes # (Manual) POC ABG pH ABG pH POC ABG pCO2 POC ABG pO2 ABG pO2 ABG HCO3 ABG Base Excess ABG Hemoglobin Oxyhemoglobin Sodium Potassium Chloride Carbon Dioxide BUN Creatinine Glucose POC Glucose 243 H 298 H 208 H Lactic Acid Calcium AST Alkaline Phosphatase Albumin Urine WBC (Auto) 01/30/17 01/31/17 01/31/17 23:29 04:39 04:39 WBC 11.4 H RBC 3.22 L Hgb 8.2 L Hct 24.9 L MCV 78 L MCH 25 L RDW 17.2 H Plt Count 576 H Lymph % (Auto) [place] % (Auto) Eos % (Auto) Seg Neutrophils % Seg Neuts % (Manual) Lymphocytes % (Manual) Seg Neutrophils # Seg Neutrophils # Man Lymphocytes # (Manual) POC ABG pH ABG pH POC ABG pCO2 POC ABG pO2 ABG pO2 ABG HCO3 ABG Base Excess ABG Hemoglobin Oxyhemoglobin Sodium Potassium Chloride Carbon Dioxide BUN Creatinine 0.7 L Glucose 223 H POC Glucose 245 H Lactic Acid Calcium AST Alkaline Phosphatase Albumin Urine WBC (Auto) 01/31/17 01/31/17 01/31/17 05:57 12:23 17:41 WBC RBC Hgb Hct MCV MCH RDW Plt Count Lymph % (Auto) [place] % (Auto) Eos % (Auto) Seg Neutrophils % Seg Neuts % (Manual) Lymphocytes % (Manual) Seg Neutrophils # Seg Neutrophils # Man Lymphocytes # (Manual) POC ABG pH ABG pH POC ABG pCO2 POC ABG pO2 ABG pO2 ABG HCO3 ABG Base Excess ABG Hemoglobin Oxyhemoglobin Sodium Potassium Chloride Carbon Dioxide BUN Creatinine Glucose POC Glucose 264 H 252 H 208 H Lactic Acid Calcium AST Alkaline Phosphatase Albumin Urine WBC (Auto) 01/31/17 01/31/17 02/01/17 18:55 22:59 03:38 WBC RBC 2.81 L Hgb 7.4 L Hct 22.1 L MCV 79 L MCH 27 L RDW 17.0 H Plt Count 540 H Lymph % (Auto) [place] % (Auto) Eos % (Auto) Seg Neutrophils % Seg Neuts % (Manual) Lymphocytes % (Manual) Seg Neutrophils # Seg Neutrophils # Man Lymphocytes # (Manual) POC ABG pH ABG pH POC ABG pCO2 32.8 L POC ABG pO2 ABG pO2 ABG HCO3 ABG Base Excess ABG Hemoglobin Oxyhemoglobin Sodium Potassium Chloride Carbon Dioxide BUN Creatinine Glucose POC Glucose 40 L Lactic Acid Calcium AST Alkaline Phosphatase Albumin Urine WBC (Auto) 02/01/17 02/01/17 02/01/17 03:38 05:17 12:19 WBC RBC Hgb Hct MCV MCH RDW Plt Count Lymph % (Auto) [place] % (Auto) Eos % (Auto) Seg Neutrophils % Seg Neuts % (Manual) Lymphocytes % (Manual) Seg Neutrophils # Seg Neutrophils # Man Lymphocytes # (Manual) POC ABG pH ABG pH POC ABG pCO2 POC ABG pO2 ABG pO2 ABG HCO3 ABG Base Excess ABG Hemoglobin Oxyhemoglobin Sodium Potassium Chloride Carbon Dioxide 21 L BUN Creatinine 0.7 L Glucose POC Glucose 140 H 213 H Lactic Acid Calcium AST Alkaline Phosphatase Albumin Urine WBC (Auto) 02/01/17 02/01/17 02/02/17 16:44 23:59 05:14 WBC RBC Hgb Hct MCV MCH RDW Plt Count Lymph % (Auto) [place] % (Auto) Eos % (Auto) Seg Neutrophils % Seg Neuts % (Manual) Lymphocytes % (Manual) Seg Neutrophils # Seg Neutrophils # Man Lymphocytes # (Manual) POC ABG pH ABG pH POC ABG pCO2 POC ABG pO2 ABG pO2 ABG HCO3 ABG Base Excess ABG Hemoglobin Oxyhemoglobin Sodium Potassium Chloride Carbon Dioxide BUN Creatinine Glucose POC Glucose 172 H 181 H 194 H Lactic Acid Calcium AST Alkaline Phosphatase Albumin Urine WBC (Auto) 02/02/17 02/02/17 02/02/17 11:24 11:46 11:46 WBC RBC 2.94 L Hgb 7.5 L Hct 23.0 L MCV 78 L MCH 25 L RDW 16.9 H Plt Count 520 H Lymph % (Auto) [place] % (Auto) Eos % (Auto) Seg Neutrophils % Seg Neuts % (Manual) Lymphocytes % (Manual) Seg Neutrophils # Seg Neutrophils # Man Lymphocytes # (Manual) POC ABG pH ABG pH POC ABG pCO2 POC ABG pO2 ABG pO2 ABG HCO3 ABG Base Excess ABG Hemoglobin Oxyhemoglobin Sodium Potassium Chloride Carbon Dioxide BUN Creatinine 0.6 L Glucose 189 H POC Glucose 209 H Lactic Acid Calcium 8.1 L AST Alkaline Phosphatase Albumin Urine WBC (Auto) 02/02/17 02/02/17 02/03/17 17:47 23:32 05:53 WBC RBC Hgb Hct MCV MCH RDW Plt Count Lymph % (Auto) [place] % (Auto) Eos % (Auto) Seg Neutrophils % Seg Neuts % (Manual) Lymphocytes % (Manual) Seg Neutrophils # Seg Neutrophils # Man Lymphocytes # (Manual) POC ABG pH ABG pH POC ABG pCO2 POC ABG pO2 ABG pO2 ABG HCO3 ABG Base Excess ABG Hemoglobin Oxyhemoglobin Sodium Potassium Chloride Carbon Dioxide BUN Creatinine Glucose POC Glucose 147 H 176 H 224 H Lactic Acid Calcium AST Alkaline Phosphatase Albumin Urine WBC (Auto) 02/03/17 02/03/17 02/03/17 11:19 16:59 23:38 WBC RBC Hgb Hct MCV MCH RDW Plt Count Lymph % (Auto) [place] % (Auto) Eos % (Auto) Seg Neutrophils % Seg Neuts % (Manual) Lymphocytes % (Manual) Seg Neutrophils # Seg Neutrophils # Man Lymphocytes # (Manual) POC ABG pH ABG pH POC ABG pCO2 POC ABG pO2 ABG pO2 ABG HCO3 ABG Base Excess ABG Hemoglobin Oxyhemoglobin Sodium Potassium Chloride Carbon Dioxide BUN Creatinine Glucose POC Glucose 228 H 189 H 191 H Lactic Acid Calcium AST Alkaline Phosphatase Albumin Urine WBC (Auto) 02/04/17 02/04/17 02/04/17 05:45 11:20 17:20 WBC RBC Hgb Hct MCV MCH RDW Plt Count Lymph % (Auto) [place] % (Auto) Eos % (Auto) Seg Neutrophils % Seg Neuts % (Manual) Lymphocytes % (Manual) Seg Neutrophils # Seg Neutrophils # Man Lymphocytes # (Manual) POC ABG pH ABG pH POC ABG pCO2 POC ABG pO2 ABG pO2 ABG HCO3 ABG Base Excess ABG Hemoglobin Oxyhemoglobin Sodium Potassium Chloride Carbon Dioxide BUN Creatinine Glucose POC Glucose 251 H 243 H 163 H Lactic Acid Calcium AST Alkaline Phosphatase Albumin Urine WBC (Auto) 02/05/17 02/05/17 02/05/17 00:17 05:38 12:38 WBC RBC Hgb Hct MCV MCH RDW Plt Count Lymph % (Auto) [place] % (Auto) Eos % (Auto) Seg Neutrophils % Seg Neuts % (Manual) Lymphocytes % (Manual) Seg Neutrophils # Seg Neutrophils # Man Lymphocytes # (Manual) POC ABG pH ABG pH POC ABG pCO2 POC ABG pO2 ABG pO2 ABG HCO3 ABG Base Excess ABG Hemoglobin Oxyhemoglobin Sodium Potassium Chloride Carbon Dioxide BUN Creatinine Glucose POC Glucose 200 H 248 H 241 H Lactic Acid Calcium AST Alkaline Phosphatase Albumin Urine WBC (Auto) 02/05/17 02/05/17 02/06/17 16:29 23:56 05:30 WBC RBC Hgb Hct MCV MCH RDW Plt Count Lymph % (Auto) [place] % (Auto) Eos % (Auto) Seg Neutrophils % Seg Neuts % (Manual) Lymphocytes % (Manual) Seg Neutrophils # Seg Neutrophils # Man Lymphocytes # (Manual) POC ABG pH ABG pH POC ABG pCO2 POC ABG pO2 ABG pO2 ABG HCO3 ABG Base Excess ABG Hemoglobin Oxyhemoglobin Sodium Potassium Chloride Carbon Dioxide BUN Creatinine Glucose POC Glucose 257 H 258 H 120 H Lactic Acid Calcium AST Alkaline Phosphatase Albumin Urine WBC (Auto) 02/06/17 02/06/17 02/06/17 11:50 17:11 23:50 WBC RBC Hgb Hct MCV MCH RDW Plt Count Lymph % (Auto) [place] % (Auto) Eos % (Auto) Seg Neutrophils % Seg Neuts % (Manual) Lymphocytes % (Manual) Seg Neutrophils # Seg Neutrophils # Man Lymphocytes # (Manual) POC ABG pH ABG pH POC ABG pCO2 POC ABG pO2 ABG pO2 ABG HCO3 ABG Base Excess ABG Hemoglobin Oxyhemoglobin Sodium Potassium Chloride Carbon Dioxide BUN Creatinine Glucose POC Glucose 254 H 149 H 240 H Lactic Acid Calcium AST Alkaline Phosphatase Albumin Urine WBC (Auto) 02/07/17 02/07/17 02/07/17 05:22 11:15 18:33 WBC RBC Hgb Hct MCV MCH RDW Plt Count Lymph % (Auto) [place] % (Auto) Eos % (Auto) Seg Neutrophils % Seg Neuts % (Manual) Lymphocytes % (Manual) Seg Neutrophils # Seg Neutrophils # Man Lymphocytes # (Manual) POC ABG pH ABG pH POC ABG pCO2 POC ABG pO2 ABG pO2 ABG HCO3 ABG Base Excess ABG Hemoglobin Oxyhemoglobin Sodium Potassium Chloride Carbon Dioxide BUN Creatinine Glucose POC Glucose 258 H 239 H 176 H Lactic Acid Calcium AST Alkaline Phosphatase Albumin Urine WBC (Auto) 02/07/17 02/08/17 02/08/17 23:59 06:15 11:55 WBC RBC Hgb Hct MCV MCH RDW Plt Count Lymph % (Auto) [place] % (Auto) Eos % (Auto) Seg Neutrophils % Seg Neuts % (Manual) Lymphocytes % (Manual) Seg Neutrophils # Seg Neutrophils # Man Lymphocytes # (Manual) POC ABG pH ABG pH POC ABG pCO2 POC ABG pO2 ABG pO2 ABG HCO3 ABG Base Excess ABG Hemoglobin Oxyhemoglobin Sodium Potassium Chloride Carbon Dioxide BUN Creatinine Glucose POC Glucose 186 H 195 H 129 H Lactic Acid Calcium AST Alkaline Phosphatase Albumin Urine WBC (Auto) 02/08/17 02/08/17 02/09/17 16:55 23:51 05:51 WBC RBC Hgb Hct MCV MCH RDW Plt Count Lymph % (Auto) [place] % (Auto) Eos % (Auto) Seg Neutrophils % Seg Neuts % (Manual) Lymphocytes % (Manual) Seg Neutrophils # Seg Neutrophils # Man Lymphocytes # (Manual) POC ABG pH ABG pH POC ABG pCO2 POC ABG pO2 ABG pO2 ABG HCO3 ABG Base Excess ABG Hemoglobin Oxyhemoglobin Sodium Potassium Chloride Carbon Dioxide BUN Creatinine Glucose POC Glucose 246 H 262 H 295 H Lactic Acid Calcium AST Alkaline Phosphatase Albumin Urine WBC (Auto) 02/09/17 02/09/17 02/09/17 07:24 07:24 12:08 WBC 14.7 H RBC 3.39 L Hgb 8.9 L Hct 26.4 L MCV 78 L MCH 26 L RDW 18.4 H Plt Count 670 H Lymph % (Auto) 11.8 L [place] % (Auto) Eos % (Auto) Seg Neutrophils % 81.2 H Seg Neuts % (Manual) Lymphocytes % (Manual) Seg Neutrophils # 11.9 H Seg Neutrophils # Man Lymphocytes # (Manual) POC ABG pH ABG pH POC ABG pCO2 POC ABG pO2 ABG pO2 ABG HCO3 ABG Base Excess ABG Hemoglobin Oxyhemoglobin Sodium Potassium Chloride 95.5 L Carbon Dioxide BUN 52 H Creatinine Glucose 277 H POC Glucose 236 H Lactic Acid Calcium AST Alkaline Phosphatase Albumin Urine WBC (Auto) 02/09/17 02/10/17 02/10/17 18:39 00:01 05:44 WBC RBC Hgb Hct MCV MCH RDW Plt Count Lymph % (Auto) [place] % (Auto) Eos % (Auto) Seg Neutrophils % Seg Neuts % (Manual) Lymphocytes % (Manual) Seg Neutrophils # Seg Neutrophils # Man Lymphocytes # (Manual) POC ABG pH ABG pH POC ABG pCO2 POC ABG pO2 ABG pO2 ABG HCO3 ABG Base Excess ABG Hemoglobin Oxyhemoglobin Sodium Potassium Chloride Carbon Dioxide BUN Creatinine Glucose POC Glucose 151 H 210 H 201 H Lactic Acid Calcium AST Alkaline Phosphatase Albumin Urine WBC (Auto) 02/10/17 02/10/17 02/10/17 11:21 17:29 23:56 WBC RBC Hgb Hct MCV MCH RDW Plt Count Lymph % (Auto) [place] % (Auto) Eos % (Auto) Seg Neutrophils % Seg Neuts % (Manual) Lymphocytes % (Manual) Seg Neutrophils # Seg Neutrophils # Man Lymphocytes # (Manual) POC ABG pH ABG pH POC ABG pCO2 POC ABG pO2 ABG pO2 ABG HCO3 ABG Base Excess ABG Hemoglobin Oxyhemoglobin Sodium Potassium Chloride Carbon Dioxide BUN Creatinine Glucose POC Glucose 233 H 167 H 191 H Lactic Acid Calcium AST Alkaline Phosphatase Albumin Urine WBC (Auto) 02/11/17 02/11/17 02/11/17 05:24 12:25 17:03 WBC RBC Hgb Hct MCV MCH RDW Plt Count Lymph % (Auto) [place] % (Auto) Eos % (Auto) Seg Neutrophils % Seg Neuts % (Manual) Lymphocytes % (Manual) Seg Neutrophils # Seg Neutrophils # Man Lymphocytes # (Manual) POC ABG pH ABG pH POC ABG pCO2 POC ABG pO2 ABG pO2 ABG HCO3 ABG Base Excess ABG Hemoglobin Oxyhemoglobin Sodium Potassium Chloride Carbon Dioxide BUN Creatinine Glucose POC Glucose 135 H 275 H 172 H Lactic Acid Calcium AST Alkaline Phosphatase Albumin Urine WBC (Auto) 02/11/17 02/12/17 02/12/17 23:59 05:39 11:33 WBC RBC Hgb Hct MCV MCH RDW Plt Count Lymph % (Auto) [place] % (Auto) Eos % (Auto) Seg Neutrophils % Seg Neuts % (Manual) Lymphocytes % (Manual) Seg Neutrophils # Seg Neutrophils # Man Lymphocytes # (Manual) POC ABG pH ABG pH POC ABG pCO2 POC ABG pO2 ABG pO2 ABG HCO3 ABG Base Excess ABG Hemoglobin Oxyhemoglobin Sodium Potassium Chloride Carbon Dioxide BUN Creatinine Glucose POC Glucose 215 H 261 H 217 H Lactic Acid Calcium AST Alkaline Phosphatase Albumin Urine WBC (Auto)
--- NOTE | 2017-02-12 15:56 | Progress Note ---
Assessment and Plan Assessment: Hypoglycemic brain injury Persistent vegetative state Metabolic encephalopathy Hypoglycemia/hypothermia Acute respiratory failure mechanical ventilator greater than 96 hours Sepsis ruled out, UTI ruled out hyponatremia, Hypothyroidism DNR- awaiting hospice placement, awaiting guardianship from the state to give consent, as has no family to give consent Subjective Date of service: 02/12/17 Principal diagnosis: Acute respiratory failure,encephalopathy Interval history: Patient is unresponsive Chart and on interdisciplinary notes reviewed He is DO NOT RESUSCITATE Objective - Constitutional Vitals: Vital Signs - 12hr 02/12/17 02/12/17 02/12/17 03:57 04:00 05:00 Temperature Pulse Rate 68 67 Pulse Rate [ 67 From Monitor] Respiratory 17 Rate Blood Pressure 146/84 147/84 147/89 O2 Sat by Pulse 100 100 100 Oximetry 02/12/17 02/12/17 02/12/17 06:00 07:00 07:26 Temperature 98.4 F Pulse Rate 65 60 Pulse Rate [ From Monitor] Respiratory 13 14 Rate Blood Pressure 161/87 146/80 O2 Sat by Pulse 100 100 Oximetry 02/12/17 02/12/17 02/12/17 08:00 08:07 09:00 Temperature Pulse Rate 61 63 63 Pulse Rate [ From Monitor] Respiratory 16 18 Rate Blood Pressure 157/85 157/85 154/84 O2 Sat by Pulse 100 100 100 Oximetry 02/12/17 02/12/17 02/12/17 10:00 10:08 10:29 Temperature Pulse Rate 66 66 64 Pulse Rate [ From Monitor] Respiratory 17 Rate Blood Pressure 147/83 147/83 O2 Sat by Pulse 100 Oximetry 02/12/17 02/12/17 02/12/17 11:00 12:00 13:00 Temperature 99.2 F Pulse Rate 64 62 65 Pulse Rate [ From Monitor] Respiratory 15 14 23 Rate Blood Pressure 161/79 146/78 133/71 O2 Sat by Pulse 100 100 100 Oximetry 02/12/17 02/12/17 02/12/17 13:30 14:00 14:30 Temperature Pulse Rate 62 60 59 L Pulse Rate [ From Monitor] Respiratory 15 13 12 Rate Blood Pressure 133/71 162/82 144/77 O2 Sat by Pulse 100 100 100 Oximetry 02/12/17 02/12/17 15:00 15:30 Temperature Pulse Rate 61 62 Pulse Rate [ From Monitor] Respiratory 17 14 Rate Blood Pressure 160/89 126/72 O2 Sat by Pulse 100 100 Oximetry General appearance: Present: no acute distress - Neck Neck: supple - Respiratory Respiratory: bilateral: diminished - Cardiovascular Rhythm: regular Heart Sounds: Present: S1 & S2 Extremities: No edema - Gastrointestinal General gastrointestinal: Present: soft - Integumentary Integumentary: clear - Neurologic Neurologic: other (unresponsive) - Labs CBC & Chem 7: 02/09/17 07:24 02/09/17 07:24 Labs: Abnormal lab results 02/11/17 02/11/17 02/11/17 Range/Units 05:24 12:25 17:03 POC Glucose 135 H 275 H 172 H (70-105) 02/11/17 02/12/17 02/12/17 Range/Units 23:59 05:39 11:33 POC Glucose 215 H 261 H 217 H (70-105)
[2017-02-13] MEDS: NOVOLOG SUB-Q SCH ×4 (00:50→19:29)
[2017-02-13] MEDS: TYLENOL FEEDTUBE PRN ×2 (03:00→22:45)
[2017-02-13] MEDS: SYNTHROID PO SCH (06:27)
[2017-02-13] MEDS: PEPCID PO SCH ×2 (11:22→22:45)
[2017-02-13] MEDS: NORMODYNE PO SCH ×2 (11:22→22:44)
[2017-02-13] MEDS: HEPARIN SUB-Q SCH ×2 (11:23→22:46)
[2017-02-13] MEDS: LEVEMIR (NF) SUB-Q SCH (11:24)
--- NOTE | 2017-02-13 15:41 | Progress Note ---
Assessment and Plan Imp: 1. Hypoglycemia/hypothermia -> suspect due to too much insulin 2. Hypothyroidism; doubt myxedema coma with normal free T4 3. Acute respiratory failure, hypoxia 4. UTI/SIRS 5. Metabolic encephalopathy Rec: 1. GI/DVT PPx/TFs 2. Reviewed chart; ethics note 01/18/17 recommended AND and "hospice"; trying to get guardianship to sign necessary orders for this (however, I was told they are not willing to sign for withdrawal of ventilator); further care felt to be futile and would only prolong potential suffering without affecting ultimate outcome 3. Comfort care, no escalation of care; would not check any further labs, etc. 4. Poor prognosis Unable to locate family. Subjective Date of service: 02/13/17 Principal diagnosis: Acute respiratory failure,encephalopathy Interval history: No events. On vent. Unresponsive. Active Medications Acetaminophen (Tylenol) 650 mg FEEDTUBE Q6H PRN PRN Reason: Non Cardiac Pain Or Temp>101 Last Admin: 02/13/17 03:00 Dose: 650 mg Lipase/Protease/Amylase (Pancreaze Dr 10,500 Unit) 1 each FEEDTUBE PRN PRN PRN Reason: For Clogged Feeding Tube Dextrose (D50w (25gm) Vial) 50 gm IV PRN PRN PRN Reason: Hypoglycemia Famotidine (Pepcid) 20 mg PO BID [facility] Last Admin: 02/13/17 11:22 Dose: 20 mg Heparin Sodium (Porcine) (Heparin) 5,000 unit SUB-Q Q12HR [facility] Last Admin: 02/13/17 11:23 Dose: 5,000 unit Hydralazine HCl (Apresoline) 10 mg IV Q4HR PRN PRN Reason: Hypertension Last Admin: 02/02/17 06:14 Dose: 10 mg Hydrophilic Ointment (Vaseline Lip Therapy) 1 applic TP Q2HR PRN PRN Reason: Dry Lips Insulin Aspart (Novolog) 0 units SUB-Q Q6HR [facility] PRN Reason: Protocol Last Admin: 02/13/17 13:34 Dose: 3 units Insulin Detemir (Levemir) 10 units SUB-Q DAILY [facility] Last Admin: 02/13/17 11:24 Dose: 10 units Labetalol HCl (Normodyne) 200 mg PO BID [facility] Last Admin: 02/13/17 11:22 Dose: 200 mg Levothyroxine Sodium (Synthroid) 100 mcg PO DAILY@0600 [facility] Last Admin: 02/13/17 06:27 Dose: 100 mcg Loperamide HCl (Imodium A-D) 2 mg PO Q2H PRN PRN Reason: Diarrhea Last Admin: 02/08/17 09:36 Dose: 2 mg Multi-Ingred Cream/Lotion/Oil/Oint (Artificial Tears Ophth Oint) 1 applic OU Q4HR PRN PRN Reason: Dry Eye(s) Simple Syrup (Simple Syrup) 15 ml FEEDTUBE PRN PRN PRN Reason: Hypoglycemia Last Admin: 01/31/17 23:19 Dose: 15 ml Simple Syrup (Simple Syrup) 30 ml FEEDTUBE PRN PRN PRN Reason: Hypoglycemia Sodium Bicarbonate (Sodium Bicarbonate) 325 mg FEEDTUBE PRN PRN PRN Reason: For Clogged Feeding Tube Objective Vital Signs - 12hr 02/13/17 02/13/17 02/13/17 04:00 05:01 06:01 Temperature 98.0 F Pulse Rate 65 70 64 Pulse Rate [ 65 From Monitor] Respiratory 16 29 H 18 Rate Blood Pressure 146/83 160/80 152/83 O2 Sat by Pulse 100 100 100 Oximetry 02/13/17 02/13/17 02/13/17 07:01 07:50 08:00 Temperature 98.4 F Pulse Rate 67 68 Pulse Rate [ 68 From Monitor] Respiratory 16 17 Rate Blood Pressure 168/86 142/86 O2 Sat by Pulse 100 100 Oximetry 02/13/17 02/13/17 02/13/17 08:01 09:01 10:00 Temperature Pulse Rate 65 70 69 Pulse Rate [ From Monitor] Respiratory 14 22 20 Rate Blood Pressure 151/83 147/90 163/93 O2 Sat by Pulse 100 100 100 Oximetry 02/13/17 02/13/17 02/13/17 11:01 11:21 11:22 Temperature Pulse Rate 69 70 70 Pulse Rate [ From Monitor] Respiratory 20 18 Rate Blood Pressure 153/92 153/92 153/92 O2 Sat by Pulse 100 100 Oximetry 02/13/17 02/13/17 02/13/17 11:34 12:00 12:01 Temperature 98.5 F Pulse Rate 68 65 Pulse Rate [ From Monitor] Respiratory 22 Rate Blood Pressure 151/87 O2 Sat by Pulse 100 Oximetry 11/08/2502/13/17 02/13/17 13:01 14:01 15:00 Temperature Pulse Rate 68 73 65 Pulse Rate [ From Monitor] Respiratory 11 L 25 H 11 L Rate Blood Pressure 149/83 123/93 126/86 O2 Sat by Pulse 100 100 100 Oximetry Constitutional: comatose, other (orally intubated, on vent) Eyes: non-icteric ENT: oropharynx moist Neck: supple Effort: normal Ascultation: Bilateral: clear Cardiovascular: regular rate and rhythm (no mrg) Gastrointestinal: normoactive bowel sounds, soft, non-tender, non-distended Integumentary: normal Extremities: no cyanosis, no edema, pink and warm Neurologic: other (unresponsive, flaccid extremities) Psychiatric: other (unable to obtain) CBC and BMP: 02/09/17 07:24 02/09/17 07:24 ABG, PT/INR, D-dimer: ABG POC ABG pH 7.442 (7.35-7.45) 01/31/17 18:55 ABG pH 7.420 pH Units (7.350-7.450) 01/17/17 04:35 POC ABG pCO2 32.8 (35-45) L 01/31/17 18:55 ABG pCO2 34.5 mm Hg 01/17/17 04:35 POC ABG pO2 82 (80-105) 01/31/17 18:55 ABG pO2 160.3 mm Hg (80.0-90.0) H 01/17/17 04:35 POC ABG HCO3 22.4 01/31/17 18:55 POC ABG Total CO2 23 01/31/17 18:55 POC ABG O2 Sat 97 01/31/17 18:55 ABG O2 Saturation 99.0 % (95.0-99.0) 01/17/17 04:35 PT/INR, D-dimer PT 14.1 Sec. (12.2-14.9) 01/17/17 04:10 INR 1.04 (0.87-1.13) 01/17/17 04:10 Abnormal lab findings: Abnormal Labs 01/09/17 01/09/17 01/09/17 12:49 13:13 14:21 WBC RBC Hgb Hct MCV MCH RDW Plt Count Lymph % (Auto) Person % (Auto) Eos % (Auto) Seg Neutrophils % Seg Neuts % (Manual) Lymphocytes % (Manual) Seg Neutrophils # Seg Neutrophils # Man Lymphocytes # (Manual) POC ABG pH ABG pH POC ABG pCO2 POC ABG pO2 ABG pO2 ABG HCO3 ABG Base Excess ABG Hemoglobin Oxyhemoglobin Sodium Potassium Chloride Carbon Dioxide BUN Creatinine Glucose POC Glucose < 40 L 128 H 65 L Lactic Acid Calcium AST Alkaline Phosphatase Albumin Urine WBC (Auto) 01/09/17 01/09/17 01/09/17 15:09 16:28 17:14 WBC RBC Hgb Hct MCV MCH RDW Plt Count Lymph % (Auto) Person % (Auto) Eos % (Auto) Seg Neutrophils % Seg Neuts % (Manual) Lymphocytes % (Manual) Seg Neutrophils # Seg Neutrophils # Man Lymphocytes # (Manual) POC ABG pH ABG pH POC ABG pCO2 POC ABG pO2 ABG pO2 ABG HCO3 ABG Base Excess ABG Hemoglobin Oxyhemoglobin Sodium Potassium Chloride Carbon Dioxide BUN Creatinine Glucose POC Glucose 120 H 44 L 112 H Lactic Acid Calcium AST Alkaline Phosphatase Albumin Urine WBC (Auto) 01/10/17 01/10/17 01/10/17 04:30 04:30 05:41 WBC 24.1 H RBC 3.38 L Hgb 8.5 L Hct 26.0 L MCV 77 L MCH 25 L RDW 17.9 H Plt Count 474 H Lymph % (Auto) Person % (Auto) Eos % (Auto) Seg Neutrophils % Seg Neuts % (Manual) 88.0 H Lymphocytes % (Manual) 4.0 L Seg Neutrophils # Seg Neutrophils # Man 21.2 H Lymphocytes # (Manual) 1.0 L POC ABG pH ABG pH POC ABG pCO2 POC ABG pO2 ABG pO2 ABG HCO3 ABG Base Excess ABG Hemoglobin Oxyhemoglobin Sodium Potassium Chloride Carbon Dioxide 17 L BUN 27 H Creatinine Glucose POC Glucose 68 L Lactic Acid Calcium 7.5 L AST Alkaline Phosphatase Albumin Urine WBC (Auto) 01/10/17 01/10/17 01/10/17 05:45 07:47 10:50 WBC RBC Hgb Hct MCV MCH RDW Plt Count Lymph % (Auto) Person % (Auto) Eos % (Auto) Seg Neutrophils % Seg Neuts % (Manual) Lymphocytes % (Manual) Seg Neutrophils # Seg Neutrophils # Man Lymphocytes # (Manual) POC ABG pH ABG pH POC ABG pCO2 26.6 L POC ABG pO2 207 H ABG pO2 ABG HCO3 ABG Base Excess ABG Hemoglobin Oxyhemoglobin Sodium Potassium Chloride Carbon Dioxide BUN Creatinine Glucose POC Glucose 148 H 165 H Lactic Acid Calcium AST Alkaline Phosphatase Albumin Urine WBC (Auto) 01/10/17 01/10/17 01/10/17 13:41 20:20 21:39 WBC RBC Hgb Hct MCV MCH RDW Plt Count Lymph % (Auto) Person % (Auto) Eos % (Auto) Seg Neutrophils % Seg Neuts % (Manual) Lymphocytes % (Manual) Seg Neutrophils # Seg Neutrophils # Man Lymphocytes # (Manual) POC ABG pH ABG pH POC ABG pCO2 POC ABG pO2 ABG pO2 ABG HCO3 ABG Base Excess ABG Hemoglobin Oxyhemoglobin Sodium Potassium Chloride Carbon Dioxide BUN Creatinine Glucose POC Glucose 114 H 150 H 175 H Lactic Acid Calcium AST Alkaline Phosphatase Albumin Urine WBC (Auto) 01/10/17 01/11/17 01/11/17 23:24 00:19 04:06 WBC RBC Hgb Hct MCV MCH RDW Plt Count Lymph % (Auto) Person % (Auto) Eos % (Auto) Seg Neutrophils % Seg Neuts % (Manual) Lymphocytes % (Manual) Seg Neutrophils # Seg Neutrophils # Man Lymphocytes # (Manual) POC ABG pH 7.463 H ABG pH POC ABG pCO2 26.2 L POC ABG pO2 185 H ABG pO2 ABG HCO3 ABG Base Excess ABG Hemoglobin Oxyhemoglobin Sodium Potassium Chloride Carbon Dioxide BUN Creatinine Glucose POC Glucose 155 H 163 H Lactic Acid Calcium AST Alkaline Phosphatase Albumin Urine WBC (Auto) 01/11/17 01/11/17 01/11/17 05:20 05:20 06:21 WBC 15.2 H RBC 3.40 L Hgb 8.9 L Hct 26.3 L MCV 78 L MCH 26 L RDW 18.6 H Plt Count 462 H Lymph % (Auto) 13.2 L Person % (Auto) Eos % (Auto) Seg Neutrophils % 80.8 H Seg Neuts % (Manual) Lymphocytes % (Manual) Seg Neutrophils # 12.3 H Seg Neutrophils # Man Lymphocytes # (Manual) POC ABG pH ABG pH POC ABG pCO2 POC ABG pO2 ABG pO2 ABG HCO3 ABG Base Excess ABG Hemoglobin Oxyhemoglobin Sodium Potassium 3.4 L Chloride 111.5 H Carbon Dioxide 17 L BUN Creatinine Glucose 147 H POC Glucose 139 H Lactic Acid Calcium 8.0 L AST Alkaline Phosphatase Albumin Urine WBC (Auto) 01/11/17 01/11/17 01/11/17 07:57 11:46 16:50 WBC RBC Hgb Hct MCV MCH RDW Plt Count Lymph % (Auto) Person % (Auto) Eos % (Auto) Seg Neutrophils % Seg Neuts % (Manual) Lymphocytes % (Manual) Seg Neutrophils # Seg Neutrophils # Man Lymphocytes # (Manual) POC ABG pH ABG pH POC ABG pCO2 POC ABG pO2 ABG pO2 ABG HCO3 ABG Base Excess ABG Hemoglobin Oxyhemoglobin Sodium Potassium Chloride Carbon Dioxide BUN Creatinine Glucose POC Glucose 188 H 199 H 235 H Lactic Acid Calcium AST Alkaline Phosphatase Albumin Urine WBC (Auto) 01/11/17 01/12/17 01/12/17 23:15 05:02 06:56 WBC RBC Hgb Hct MCV MCH RDW Plt Count Lymph % (Auto) Person % (Auto) Eos % (Auto) Seg Neutrophils % Seg Neuts % (Manual) Lymphocytes % (Manual) Seg Neutrophils # Seg Neutrophils # Man Lymphocytes # (Manual) POC ABG pH ABG pH POC ABG pCO2 28.0 L POC ABG pO2 178 H ABG pO2 ABG HCO3 ABG Base Excess ABG Hemoglobin Oxyhemoglobin Sodium Potassium Chloride Carbon Dioxide BUN Creatinine Glucose POC Glucose 155 H 119 H Lactic Acid Calcium AST Alkaline Phosphatase Albumin Urine WBC (Auto) 01/12/17 01/13/17 01/13/17 14:50 03:37 03:37 WBC RBC 3.61 L Hgb 9.3 L Hct 28.0 L MCV 78 L MCH 26 L RDW 18.2 H Plt Count Lymph % (Auto) Person % (Auto) Eos % (Auto) Seg Neutrophils % Seg Neuts % (Manual) Lymphocytes % (Manual) Seg Neutrophils # Seg Neutrophils # Man Lymphocytes # (Manual) POC ABG pH ABG pH POC ABG pCO2 POC ABG pO2 ABG pO2 ABG HCO3 ABG Base Excess ABG Hemoglobin Oxyhemoglobin Sodium Potassium Chloride 112.4 H Carbon Dioxide 19 L BUN Creatinine Glucose 118 H POC Glucose 164 H Lactic Acid Calcium 8.0 L AST Alkaline Phosphatase Albumin Urine WBC (Auto) 01/13/17 01/13/17 01/13/17 04:26 06:15 11:50 WBC RBC Hgb Hct MCV MCH RDW Plt Count Lymph % (Auto) Person % (Auto) Eos % (Auto) Seg Neutrophils % Seg Neuts % (Manual) Lymphocytes % (Manual) Seg Neutrophils # Seg Neutrophils # Man Lymphocytes # (Manual) POC ABG pH 7.485 H ABG pH POC ABG pCO2 25.4 L POC ABG pO2 73 L ABG pO2 ABG HCO3 ABG Base Excess ABG Hemoglobin Oxyhemoglobin Sodium Potassium Chloride Carbon Dioxide BUN Creatinine Glucose POC Glucose 116 H 171 H Lactic Acid Calcium AST Alkaline Phosphatase Albumin Urine WBC (Auto) 01/13/17 01/14/17 01/14/17 17:31 00:02 04:50 WBC RBC 3.32 L Hgb 8.5 L Hct 26.1 L MCV 79 L MCH 26 L RDW 18.2 H Plt Count Lymph % (Auto) Person % (Auto) 9.0 H Eos % (Auto) Seg Neutrophils % Seg Neuts % (Manual) Lymphocytes % (Manual) Seg Neutrophils # Seg Neutrophils # Man Lymphocytes # (Manual) POC ABG pH ABG pH POC ABG pCO2 POC ABG pO2 ABG pO2 ABG HCO3 ABG Base Excess ABG Hemoglobin Oxyhemoglobin Sodium Potassium Chloride Carbon Dioxide BUN Creatinine Glucose POC Glucose 203 H 157 H Lactic Acid Calcium AST Alkaline Phosphatase Albumin Urine WBC (Auto) 01/14/17 01/14/17 01/14/17 04:50 05:10 11:27 WBC RBC Hgb Hct MCV MCH RDW Plt Count Lymph % (Auto) Person % (Auto) Eos % (Auto) Seg Neutrophils % Seg Neuts % (Manual) Lymphocytes % (Manual) Seg Neutrophils # Seg Neutrophils # Man Lymphocytes # (Manual) POC ABG pH ABG pH POC ABG pCO2 POC ABG pO2 ABG pO2 ABG HCO3 ABG Base Excess ABG Hemoglobin Oxyhemoglobin Sodium Potassium Chloride 112.5 H Carbon Dioxide BUN Creatinine Glucose 149 H POC Glucose 176 H 147 H Lactic Acid Calcium 8.1 L AST Alkaline Phosphatase Albumin Urine WBC (Auto) 01/14/17 01/14/17 01/15/17 14:07 16:52 00:04 WBC RBC Hgb Hct MCV MCH RDW Plt Count Lymph % (Auto) Person % (Auto) Eos % (Auto) Seg Neutrophils % Seg Neuts % (Manual) Lymphocytes % (Manual) Seg Neutrophils # Seg Neutrophils # Man Lymphocytes # (Manual) POC ABG pH ABG pH POC ABG pCO2 POC ABG pO2 ABG pO2 ABG HCO3 ABG Base Excess ABG Hemoglobin Oxyhemoglobin Sodium Potassium Chloride Carbon Dioxide BUN Creatinine Glucose POC Glucose 131 H 193 H Lactic Acid Calcium AST Alkaline Phosphatase Albumin Urine WBC (Auto) 53.0 H 01/15/17 01/15/17 01/15/17 05:26 11:49 17:47 WBC RBC Hgb Hct MCV MCH RDW Plt Count Lymph % (Auto) Person % (Auto) Eos % (Auto) Seg Neutrophils % Seg Neuts % (Manual) Lymphocytes % (Manual) Seg Neutrophils # Seg Neutrophils # Man Lymphocytes # (Manual) POC ABG pH ABG pH POC ABG pCO2 POC ABG pO2 ABG pO2 ABG HCO3 ABG Base Excess ABG Hemoglobin Oxyhemoglobin Sodium Potassium Chloride Carbon Dioxide BUN Creatinine Glucose POC Glucose 215 H 121 H 211 H Lactic Acid Calcium AST Alkaline Phosphatase Albumin Urine WBC (Auto) 01/15/17 01/16/17 01/16/17 21:33 04:30 05:28 WBC RBC Hgb Hct MCV MCH RDW Plt Count Lymph % (Auto) Person % (Auto) Eos % (Auto) Seg Neutrophils % Seg Neuts % (Manual) Lymphocytes % (Manual) Seg Neutrophils # Seg Neutrophils # Man Lymphocytes # (Manual) POC ABG pH ABG pH 7.457 H POC ABG pCO2 POC ABG pO2 ABG pO2 55.1 L ABG HCO3 19.4 L ABG Base Excess -4.0 L ABG Hemoglobin 6.8 L Oxyhemoglobin 94.9 L Sodium Potassium Chloride Carbon Dioxide BUN Creatinine Glucose POC Glucose 275 H 271 H Lactic Acid Calcium AST Alkaline Phosphatase Albumin Urine WBC (Auto) 01/16/17 01/16/17 01/17/17 13:45 21:39 04:10 WBC 4.4 L RBC 2.98 L Hgb 7.7 L Hct 23.3 L MCV 78 L MCH 26 L RDW 18.1 H Plt Count Lymph % (Auto) Person % (Auto) Eos % (Auto) Seg Neutrophils % Seg Neuts % (Manual) Lymphocytes % (Manual) Seg Neutrophils # Seg Neutrophils # Man Lymphocytes # (Manual) POC ABG pH ABG pH POC ABG pCO2 POC ABG pO2 ABG pO2 ABG HCO3 ABG Base Excess ABG Hemoglobin Oxyhemoglobin Sodium Potassium Chloride Carbon Dioxide BUN Creatinine Glucose POC Glucose 236 H 258 H Lactic Acid Calcium AST Alkaline Phosphatase Albumin Urine WBC (Auto) 10/12/2601/17/17 01/17/17 04:10 04:35 12:23 WBC RBC Hgb Hct MCV MCH RDW Plt Count Lymph % (Auto) Person % (Auto) Eos % (Auto) Seg Neutrophils % Seg Neuts % (Manual) Lymphocytes % (Manual) Seg Neutrophils # Seg Neutrophils # Man Lymphocytes # (Manual) POC ABG pH ABG pH POC ABG pCO2 POC ABG pO2 ABG pO2 160.3 H ABG HCO3 ABG Base Excess -2.3 L ABG Hemoglobin 7.9 L Oxyhemoglobin Sodium Potassium 3.3 L Chloride 108.7 H Carbon Dioxide 20 L BUN 8 L Creatinine Glucose 202 H POC Glucose 321 H Lactic Acid Calcium 7.6 L AST Alkaline Phosphatase Albumin Urine WBC (Auto) 01/17/17 01/18/17 01/18/17 16:01 05:07 12:09 WBC RBC Hgb Hct MCV MCH RDW Plt Count Lymph % (Auto) Person % (Auto) Eos % (Auto) Seg Neutrophils % Seg Neuts % (Manual) Lymphocytes % (Manual) Seg Neutrophils # Seg Neutrophils # Man Lymphocytes # (Manual) POC ABG pH ABG pH POC ABG pCO2 POC ABG pO2 ABG pO2 ABG HCO3 ABG Base Excess ABG Hemoglobin Oxyhemoglobin Sodium Potassium Chloride Carbon Dioxide BUN Creatinine Glucose POC Glucose 239 H 155 H 203 H Lactic Acid Calcium AST Alkaline Phosphatase Albumin Urine WBC (Auto) 01/18/17 01/18/17 01/19/17 17:54 23:43 04:28 WBC RBC Hgb Hct MCV MCH RDW Plt Count Lymph % (Auto) Person % (Auto) Eos % (Auto) Seg Neutrophils % Seg Neuts % (Manual) Lymphocytes % (Manual) Seg Neutrophils # Seg Neutrophils # Man Lymphocytes # (Manual) POC ABG pH ABG pH POC ABG pCO2 POC ABG pO2 ABG pO2 ABG HCO3 ABG Base Excess ABG Hemoglobin Oxyhemoglobin Sodium Potassium Chloride Carbon Dioxide BUN Creatinine Glucose POC Glucose 132 H 125 H 182 H Lactic Acid Calcium AST Alkaline Phosphatase Albumin Urine WBC (Auto) 01/19/17 01/19/17 01/20/17 12:11 17:23 00:12 WBC RBC Hgb Hct MCV MCH RDW Plt Count Lymph % (Auto) Person % (Auto) Eos % (Auto) Seg Neutrophils % Seg Neuts % (Manual) Lymphocytes % (Manual) Seg Neutrophils # Seg Neutrophils # Man Lymphocytes # (Manual) POC ABG pH ABG pH POC ABG pCO2 POC ABG pO2 ABG pO2 ABG HCO3 ABG Base Excess ABG Hemoglobin Oxyhemoglobin Sodium Potassium Chloride Carbon Dioxide BUN Creatinine Glucose POC Glucose 153 H 66 L 139 H Lactic Acid Calcium AST Alkaline Phosphatase Albumin Urine WBC (Auto) 01/20/17 01/20/17 01/20/17 05:44 11:48 17:42 WBC RBC Hgb Hct MCV MCH RDW Plt Count Lymph % (Auto) Person % (Auto) Eos % (Auto) Seg Neutrophils % Seg Neuts % (Manual) Lymphocytes % (Manual) Seg Neutrophils # Seg Neutrophils # Man Lymphocytes # (Manual) POC ABG pH ABG pH POC ABG pCO2 POC ABG pO2 ABG pO2 ABG HCO3 ABG Base Excess ABG Hemoglobin Oxyhemoglobin Sodium Potassium Chloride Carbon Dioxide BUN Creatinine Glucose POC Glucose 176 H 218 H 132 H Lactic Acid Calcium AST Alkaline Phosphatase Albumin Urine WBC (Auto) 01/20/17 01/21/17 01/21/17 23:43 05:34 11:17 WBC RBC Hgb Hct MCV MCH RDW Plt Count Lymph % (Auto) Person % (Auto) Eos % (Auto) Seg Neutrophils % Seg Neuts % (Manual) Lymphocytes % (Manual) Seg Neutrophils # Seg Neutrophils # Man Lymphocytes # (Manual) POC ABG pH ABG pH POC ABG pCO2 POC ABG pO2 ABG pO2 ABG HCO3 ABG Base Excess ABG Hemoglobin Oxyhemoglobin Sodium Potassium Chloride Carbon Dioxide BUN Creatinine Glucose POC Glucose 178 H 106 H 213 H Lactic Acid Calcium AST Alkaline Phosphatase Albumin Urine WBC (Auto) 01/21/17 01/22/17 01/22/17 23:37 04:00 04:00 WBC RBC 3.26 L Hgb 8.3 L Hct 25.5 L MCV 78 L MCH 25 L RDW 17.9 H Plt Count Lymph % (Auto) Person % (Auto) 7.9 H Eos % (Auto) 6.2 H Seg Neutrophils % Seg Neuts % (Manual) Lymphocytes % (Manual) Seg Neutrophils # Seg Neutrophils # Man Lymphocytes # (Manual) POC ABG pH ABG pH POC ABG pCO2 POC ABG pO2 ABG pO2 ABG HCO3 ABG Base Excess ABG Hemoglobin Oxyhemoglobin Sodium Potassium Chloride 95.5 L Carbon Dioxide 31 H D BUN Creatinine Glucose 134 H POC Glucose 140 H Lactic Acid Calcium AST 44 H Alkaline Phosphatase 379 H Albumin 2.7 L Urine WBC (Auto) 01/22/17 01/22/17 01/22/17 04:58 12:12 18:12 WBC RBC Hgb Hct MCV MCH RDW Plt Count Lymph % (Auto) Person % (Auto) Eos % (Auto) Seg Neutrophils % Seg Neuts % (Manual) Lymphocytes % (Manual) Seg Neutrophils # Seg Neutrophils # Man Lymphocytes # (Manual) POC ABG pH ABG pH POC ABG pCO2 POC ABG pO2 ABG pO2 ABG HCO3 ABG Base Excess ABG Hemoglobin Oxyhemoglobin Sodium Potassium Chloride Carbon Dioxide BUN Creatinine Glucose POC Glucose 146 H 255 H 182 H Lactic Acid Calcium AST Alkaline Phosphatase Albumin Urine WBC (Auto) 01/22/17 01/23/17 01/23/17 23:39 04:43 12:12 WBC RBC Hgb Hct MCV MCH RDW Plt Count Lymph % (Auto) Person % (Auto) Eos % (Auto) Seg Neutrophils % Seg Neuts % (Manual) Lymphocytes % (Manual) Seg Neutrophils # Seg Neutrophils # Man Lymphocytes # (Manual) POC ABG pH ABG pH POC ABG pCO2 POC ABG pO2 ABG pO2 ABG HCO3 ABG Base Excess ABG Hemoglobin Oxyhemoglobin Sodium Potassium Chloride Carbon Dioxide BUN Creatinine Glucose POC Glucose 134 H 218 H 128 H Lactic Acid Calcium AST Alkaline Phosphatase Albumin Urine WBC (Auto) 01/23/17 01/24/17 01/24/17 17:36 00:08 05:16 WBC RBC Hgb Hct MCV MCH RDW Plt Count Lymph % (Auto) Person % (Auto) Eos % (Auto) Seg Neutrophils % Seg Neuts % (Manual) Lymphocytes % (Manual) Seg Neutrophils # Seg Neutrophils # Man Lymphocytes # (Manual) POC ABG pH ABG pH POC ABG pCO2 POC ABG pO2 ABG pO2 ABG HCO3 ABG Base Excess ABG Hemoglobin Oxyhemoglobin Sodium Potassium Chloride Carbon Dioxide BUN Creatinine Glucose POC Glucose 156 H 129 H 169 H Lactic Acid Calcium AST Alkaline Phosphatase Albumin Urine WBC (Auto) 01/24/17 01/24/17 01/24/17 11:40 17:43 23:23 WBC RBC Hgb Hct MCV MCH RDW Plt Count Lymph % (Auto) Person % (Auto) Eos % (Auto) Seg Neutrophils % Seg Neuts % (Manual) Lymphocytes % (Manual) Seg Neutrophils # Seg Neutrophils # Man Lymphocytes # (Manual) POC ABG pH ABG pH POC ABG pCO2 POC ABG pO2 ABG pO2 ABG HCO3 ABG Base Excess ABG Hemoglobin Oxyhemoglobin Sodium Potassium Chloride Carbon Dioxide BUN Creatinine Glucose POC Glucose 187 H 215 H 222 H Lactic Acid Calcium AST Alkaline Phosphatase Albumin Urine WBC (Auto) 01/25/17 01/25/17 01/25/17 04:56 11:52 17:37 WBC RBC Hgb Hct MCV MCH RDW Plt Count Lymph % (Auto) Person % (Auto) Eos % (Auto) Seg Neutrophils % Seg Neuts % (Manual) Lymphocytes % (Manual) Seg Neutrophils # Seg Neutrophils # Man Lymphocytes # (Manual) POC ABG pH ABG pH POC ABG pCO2 POC ABG pO2 ABG pO2 ABG HCO3 ABG Base Excess ABG Hemoglobin Oxyhemoglobin Sodium Potassium Chloride Carbon Dioxide BUN Creatinine Glucose POC Glucose 210 H 284 H 218 H Lactic Acid Calcium AST Alkaline Phosphatase Albumin Urine WBC (Auto) 01/26/17 01/26/17 01/26/17 00:02 05:33 12:17 WBC RBC Hgb Hct MCV MCH RDW Plt Count Lymph % (Auto) Person % (Auto) Eos % (Auto) Seg Neutrophils % Seg Neuts % (Manual) Lymphocytes % (Manual) Seg Neutrophils # Seg Neutrophils # Man Lymphocytes # (Manual) POC ABG pH ABG pH POC ABG pCO2 POC ABG pO2 ABG pO2 ABG HCO3 ABG Base Excess ABG Hemoglobin Oxyhemoglobin Sodium Potassium Chloride Carbon Dioxide BUN Creatinine Glucose POC Glucose 192 H 199 H 227 H Lactic Acid Calcium AST Alkaline Phosphatase Albumin Urine WBC (Auto) 01/26/17 01/26/17 01/27/17 17:50 23:57 05:31 WBC RBC Hgb Hct MCV MCH RDW Plt Count Lymph % (Auto) Person % (Auto) Eos % (Auto) Seg Neutrophils % Seg Neuts % (Manual) Lymphocytes % (Manual) Seg Neutrophils # Seg Neutrophils # Man Lymphocytes # (Manual) POC ABG pH ABG pH POC ABG pCO2 POC ABG pO2 ABG pO2 ABG HCO3 ABG Base Excess ABG Hemoglobin Oxyhemoglobin Sodium Potassium Chloride Carbon Dioxide BUN Creatinine Glucose POC Glucose 229 H 186 H 285 H Lactic Acid Calcium AST Alkaline Phosphatase Albumin Urine WBC (Auto) 01/27/17 01/27/17 01/27/17 11:42 17:47 23:58 WBC RBC Hgb Hct MCV MCH RDW Plt Count Lymph % (Auto) Person % (Auto) Eos % (Auto) Seg Neutrophils % Seg Neuts % (Manual) Lymphocytes % (Manual) Seg Neutrophils # Seg Neutrophils # Man Lymphocytes # (Manual) POC ABG pH ABG pH POC ABG pCO2 POC ABG pO2 ABG pO2 ABG HCO3 ABG Base Excess ABG Hemoglobin Oxyhemoglobin Sodium Potassium Chloride Carbon Dioxide BUN Creatinine Glucose POC Glucose 260 H 329 H 225 H Lactic Acid Calcium AST Alkaline Phosphatase Albumin Urine WBC (Auto) 01/27/17 01/27/17 01/28/17 Unknown Unknown 03:44 WBC 12.1 H RBC 3.28 L 3.14 L Hgb 8.5 L 8.2 L Hct 25.5 L 24.1 L MCV 78 L 77 L MCH 26 L 26 L RDW 16.8 H 16.9 H Plt Count 601 H 567 H Lymph % (Auto) Person % (Auto) Eos % (Auto) Seg Neutrophils % Seg Neuts % (Manual) Lymphocytes % (Manual) Seg Neutrophils # Seg Neutrophils # Man Lymphocytes # (Manual) POC ABG pH ABG pH POC ABG pCO2 POC ABG pO2 ABG pO2 ABG HCO3 ABG Base Excess ABG Hemoglobin Oxyhemoglobin Sodium 128 L Potassium 5.4 H Chloride 87.5 L Carbon Dioxide BUN 44 H Creatinine Glucose 250 H POC Glucose Lactic Acid Calcium AST Alkaline Phosphatase Albumin Urine WBC (Auto) 01/28/17 01/28/17 01/28/17 03:44 11:43 16:47 WBC RBC Hgb Hct MCV MCH RDW Plt Count Lymph % (Auto) Person % (Auto) Eos % (Auto) Seg Neutrophils % Seg Neuts % (Manual) Lymphocytes % (Manual) Seg Neutrophils # Seg Neutrophils # Man Lymphocytes # (Manual) POC ABG pH ABG pH POC ABG pCO2 POC ABG pO2 ABG pO2 ABG HCO3 ABG Base Excess ABG Hemoglobin Oxyhemoglobin Sodium Potassium Chloride Carbon Dioxide BUN 42 H Creatinine Glucose 128 H POC Glucose 351 H 249 H Lactic Acid Calcium AST Alkaline Phosphatase Albumin Urine WBC (Auto) 01/28/17 01/29/17 01/29/17 17:52 05:25 05:25 WBC 13.6 H RBC 3.25 L Hgb 8.3 L Hct 25.1 L MCV 77 L MCH 26 L RDW 16.8 H Plt Count 514 H Lymph % (Auto) Person % (Auto) Eos % (Auto) Seg Neutrophils % Seg Neuts % (Manual) Lymphocytes % (Manual) Seg Neutrophils # Seg Neutrophils # Man Lymphocytes # (Manual) POC ABG pH ABG pH POC ABG pCO2 POC ABG pO2 ABG pO2 ABG HCO3 ABG Base Excess ABG Hemoglobin Oxyhemoglobin Sodium Potassium Chloride 97.8 L Carbon Dioxide BUN 34 H Creatinine Glucose 222 H POC Glucose Lactic Acid Calcium AST Alkaline Phosphatase Albumin Urine WBC (Auto) > 182.0 H 01/29/17 01/29/17 01/29/17 09:32 11:56 18:11 WBC RBC Hgb Hct MCV MCH RDW Plt Count Lymph % (Auto) Person % (Auto) Eos % (Auto) Seg Neutrophils % Seg Neuts % (Manual) Lymphocytes % (Manual) Seg Neutrophils # Seg Neutrophils # Man Lymphocytes # (Manual) POC ABG pH ABG pH POC ABG pCO2 POC ABG pO2 ABG pO2 ABG HCO3 ABG Base Excess ABG Hemoglobin Oxyhemoglobin Sodium Potassium Chloride Carbon Dioxide BUN Creatinine Glucose POC Glucose 261 H 215 H Lactic Acid 2.50 H* Calcium AST Alkaline Phosphatase Albumin Urine WBC (Auto) 01/29/17 01/30/17 01/30/17 23:55 05:31 05:31 WBC 15.2 H RBC 3.09 L Hgb 7.9 L Hct 23.9 L MCV 77 L MCH 26 L RDW 16.9 H Plt Count 569 H Lymph % (Auto) Person % (Auto) Eos % (Auto) Seg Neutrophils % Seg Neuts % (Manual) Lymphocytes % (Manual) Seg Neutrophils # Seg Neutrophils # Man Lymphocytes # (Manual) POC ABG pH ABG pH POC ABG pCO2 POC ABG pO2 ABG pO2 ABG HCO3 ABG Base Excess ABG Hemoglobin Oxyhemoglobin Sodium Potassium Chloride Carbon Dioxide BUN 24 H Creatinine Glucose 235 H POC Glucose 176 H Lactic Acid Calcium AST Alkaline Phosphatase Albumin Urine WBC (Auto) 01/30/17 01/30/17 01/30/17 05:34 11:38 17:58 WBC RBC Hgb Hct MCV MCH RDW Plt Count Lymph % (Auto) Person % (Auto) Eos % (Auto) Seg Neutrophils % Seg Neuts % (Manual) Lymphocytes % (Manual) Seg Neutrophils # Seg Neutrophils # Man Lymphocytes # (Manual) POC ABG pH ABG pH POC ABG pCO2 POC ABG pO2 ABG pO2 ABG HCO3 ABG Base Excess ABG Hemoglobin Oxyhemoglobin Sodium Potassium Chloride Carbon Dioxide BUN Creatinine Glucose POC Glucose 243 H 298 H 208 H Lactic Acid Calcium AST Alkaline Phosphatase Albumin Urine WBC (Auto) 01/30/17 01/31/17 01/31/17 23:29 04:39 04:39 WBC 11.4 H RBC 3.22 L Hgb 8.2 L Hct 24.9 L MCV 78 L MCH 25 L RDW 17.2 H Plt Count 576 H Lymph % (Auto) Person % (Auto) Eos % (Auto) Seg Neutrophils % Seg Neuts % (Manual) Lymphocytes % (Manual) Seg Neutrophils # Seg Neutrophils # Man Lymphocytes # (Manual) POC ABG pH ABG pH POC ABG pCO2 POC ABG pO2 ABG pO2 ABG HCO3 ABG Base Excess ABG Hemoglobin Oxyhemoglobin Sodium Potassium Chloride Carbon Dioxide BUN Creatinine 0.7 L Glucose 223 H POC Glucose 245 H Lactic Acid Calcium AST Alkaline Phosphatase Albumin Urine WBC (Auto) 01/31/17 01/31/17 01/31/17 05:57 12:23 17:41 WBC RBC Hgb Hct MCV MCH RDW Plt Count Lymph % (Auto) Person % (Auto) Eos % (Auto) Seg Neutrophils % Seg Neuts % (Manual) Lymphocytes % (Manual) Seg Neutrophils # Seg Neutrophils # Man Lymphocytes # (Manual) POC ABG pH ABG pH POC ABG pCO2 POC ABG pO2 ABG pO2 ABG HCO3 ABG Base Excess ABG Hemoglobin Oxyhemoglobin Sodium Potassium Chloride Carbon Dioxide BUN Creatinine Glucose POC Glucose 264 H 252 H 208 H Lactic Acid Calcium AST Alkaline Phosphatase Albumin Urine WBC (Auto) 01/31/17 01/31/17 02/01/17 18:55 22:59 03:38 WBC RBC 2.81 L Hgb 7.4 L Hct 22.1 L MCV 79 L MCH 27 L RDW 17.0 H Plt Count 540 H Lymph % (Auto) Person % (Auto) Eos % (Auto) Seg Neutrophils % Seg Neuts % (Manual) Lymphocytes % (Manual) Seg Neutrophils # Seg Neutrophils # Man Lymphocytes # (Manual) POC ABG pH ABG pH POC ABG pCO2 32.8 L POC ABG pO2 ABG pO2 ABG HCO3 ABG Base Excess ABG Hemoglobin Oxyhemoglobin Sodium Potassium Chloride Carbon Dioxide BUN Creatinine Glucose POC Glucose 40 L Lactic Acid Calcium AST Alkaline Phosphatase Albumin Urine WBC (Auto) 02/01/17 02/01/17 02/01/17 03:38 05:17 12:19 WBC RBC Hgb Hct MCV MCH RDW Plt Count Lymph % (Auto) Person % (Auto) Eos % (Auto) Seg Neutrophils % Seg Neuts % (Manual) Lymphocytes % (Manual) Seg Neutrophils # Seg Neutrophils # Man Lymphocytes # (Manual) POC ABG pH ABG pH POC ABG pCO2 POC ABG pO2 ABG pO2 ABG HCO3 ABG Base Excess ABG Hemoglobin Oxyhemoglobin Sodium Potassium Chloride Carbon Dioxide 21 L BUN Creatinine 0.7 L Glucose POC Glucose 140 H 213 H Lactic Acid Calcium AST Alkaline Phosphatase Albumin Urine WBC (Auto) 02/01/17 02/01/17 02/02/17 16:44 23:59 05:14 WBC RBC Hgb Hct MCV MCH RDW Plt Count Lymph % (Auto) Person % (Auto) Eos % (Auto) Seg Neutrophils % Seg Neuts % (Manual) Lymphocytes % (Manual) Seg Neutrophils # Seg Neutrophils # Man Lymphocytes # (Manual) POC ABG pH ABG pH POC ABG pCO2 POC ABG pO2 ABG pO2 ABG HCO3 ABG Base Excess ABG Hemoglobin Oxyhemoglobin Sodium Potassium Chloride Carbon Dioxide BUN Creatinine Glucose POC Glucose 172 H 181 H 194 H Lactic Acid Calcium AST Alkaline Phosphatase Albumin Urine WBC (Auto) 02/02/17 02/02/17 02/02/17 11:24 11:46 11:46 WBC RBC 2.94 L Hgb 7.5 L Hct 23.0 L MCV 78 L MCH 25 L RDW 16.9 H Plt Count 520 H Lymph % (Auto) Person % (Auto) Eos % (Auto) Seg Neutrophils % Seg Neuts % (Manual) Lymphocytes % (Manual) Seg Neutrophils # Seg Neutrophils # Man Lymphocytes # (Manual) POC ABG pH ABG pH POC ABG pCO2 POC ABG pO2 ABG pO2 ABG HCO3 ABG Base Excess ABG Hemoglobin Oxyhemoglobin Sodium Potassium Chloride Carbon Dioxide BUN Creatinine 0.6 L Glucose 189 H POC Glucose 209 H Lactic Acid Calcium 8.1 L AST Alkaline Phosphatase Albumin Urine WBC (Auto) 02/02/17 02/02/17 02/03/17 17:47 23:32 05:53 WBC RBC Hgb Hct MCV MCH RDW Plt Count Lymph % (Auto) Person % (Auto) Eos % (Auto) Seg Neutrophils % Seg Neuts % (Manual) Lymphocytes % (Manual) Seg Neutrophils # Seg Neutrophils # Man Lymphocytes # (Manual) POC ABG pH ABG pH POC ABG pCO2 POC ABG pO2 ABG pO2 ABG HCO3 ABG Base Excess ABG Hemoglobin Oxyhemoglobin Sodium Potassium Chloride Carbon Dioxide BUN Creatinine Glucose POC Glucose 147 H 176 H 224 H Lactic Acid Calcium AST Alkaline Phosphatase Albumin Urine WBC (Auto) 02/03/17 02/03/17 02/03/17 11:19 16:59 23:38 WBC RBC Hgb Hct MCV MCH RDW Plt Count Lymph % (Auto) Person % (Auto) Eos % (Auto) Seg Neutrophils % Seg Neuts % (Manual) Lymphocytes % (Manual) Seg Neutrophils # Seg Neutrophils # Man Lymphocytes # (Manual) POC ABG pH ABG pH POC ABG pCO2 POC ABG pO2 ABG pO2 ABG HCO3 ABG Base Excess ABG Hemoglobin Oxyhemoglobin Sodium Potassium Chloride Carbon Dioxide BUN Creatinine Glucose POC Glucose 228 H 189 H 191 H Lactic Acid Calcium AST Alkaline Phosphatase Albumin Urine WBC (Auto) 02/04/17 02/04/17 02/04/17 05:45 11:20 17:20 WBC RBC Hgb Hct MCV MCH RDW Plt Count Lymph % (Auto) Person % (Auto) Eos % (Auto) Seg Neutrophils % Seg Neuts % (Manual) Lymphocytes % (Manual) Seg Neutrophils # Seg Neutrophils # Man Lymphocytes # (Manual) POC ABG pH ABG pH POC ABG pCO2 POC ABG pO2 ABG pO2 ABG HCO3 ABG Base Excess ABG Hemoglobin Oxyhemoglobin Sodium Potassium Chloride Carbon Dioxide BUN Creatinine Glucose POC Glucose 251 H 243 H 163 H Lactic Acid Calcium AST Alkaline Phosphatase Albumin Urine WBC (Auto) 02/05/17 02/05/17 02/05/17 00:17 05:38 12:38 WBC RBC Hgb Hct MCV MCH RDW Plt Count Lymph % (Auto) Person % (Auto) Eos % (Auto) Seg Neutrophils % Seg Neuts % (Manual) Lymphocytes % (Manual) Seg Neutrophils # Seg Neutrophils # Man Lymphocytes # (Manual) POC ABG pH ABG pH POC ABG pCO2 POC ABG pO2 ABG pO2 ABG HCO3 ABG Base Excess ABG Hemoglobin Oxyhemoglobin Sodium Potassium Chloride Carbon Dioxide BUN Creatinine Glucose POC Glucose 200 H 248 H 241 H Lactic Acid Calcium AST Alkaline Phosphatase Albumin Urine WBC (Auto) 02/05/17 02/05/17 02/06/17 16:29 23:56 05:30 WBC RBC Hgb Hct MCV MCH RDW Plt Count Lymph % (Auto) Person % (Auto) Eos % (Auto) Seg Neutrophils % Seg Neuts % (Manual) Lymphocytes % (Manual) Seg Neutrophils # Seg Neutrophils # Man Lymphocytes # (Manual) POC ABG pH ABG pH POC ABG pCO2 POC ABG pO2 ABG pO2 ABG HCO3 ABG Base Excess ABG Hemoglobin Oxyhemoglobin Sodium Potassium Chloride Carbon Dioxide BUN Creatinine Glucose POC Glucose 257 H 258 H 120 H Lactic Acid Calcium AST Alkaline Phosphatase Albumin Urine WBC (Auto) 02/06/17 02/06/17 02/06/17 11:50 17:11 23:50 WBC RBC Hgb Hct MCV MCH RDW Plt Count Lymph % (Auto) Person % (Auto) Eos % (Auto) Seg Neutrophils % Seg Neuts % (Manual) Lymphocytes % (Manual) Seg Neutrophils # Seg Neutrophils # Man Lymphocytes # (Manual) POC ABG pH ABG pH POC ABG pCO2 POC ABG pO2 ABG pO2 ABG HCO3 ABG Base Excess ABG Hemoglobin Oxyhemoglobin Sodium Potassium Chloride Carbon Dioxide BUN Creatinine Glucose POC Glucose 254 H 149 H 240 H Lactic Acid Calcium AST Alkaline Phosphatase Albumin Urine WBC (Auto) 02/07/17 02/07/17 02/07/17 05:22 11:15 18:33 WBC RBC Hgb Hct MCV MCH RDW Plt Count Lymph % (Auto) Person % (Auto) Eos % (Auto) Seg Neutrophils % Seg Neuts % (Manual) Lymphocytes % (Manual) Seg Neutrophils # Seg Neutrophils # Man Lymphocytes # (Manual) POC ABG pH ABG pH POC ABG pCO2 POC ABG pO2 ABG pO2 ABG HCO3 ABG Base Excess ABG Hemoglobin Oxyhemoglobin Sodium Potassium Chloride Carbon Dioxide BUN Creatinine Glucose POC Glucose 258 H 239 H 176 H Lactic Acid Calcium AST Alkaline Phosphatase Albumin Urine WBC (Auto) 02/07/17 02/08/17 02/08/17 23:59 06:15 11:55 WBC RBC Hgb Hct MCV MCH RDW Plt Count Lymph % (Auto) Person % (Auto) Eos % (Auto) Seg Neutrophils % Seg Neuts % (Manual) Lymphocytes % (Manual) Seg Neutrophils # Seg Neutrophils # Man Lymphocytes # (Manual) POC ABG pH ABG pH POC ABG pCO2 POC ABG pO2 ABG pO2 ABG HCO3 ABG Base Excess ABG Hemoglobin Oxyhemoglobin Sodium Potassium Chloride Carbon Dioxide BUN Creatinine Glucose POC Glucose 186 H 195 H 129 H Lactic Acid Calcium AST Alkaline Phosphatase Albumin Urine WBC (Auto) 02/08/17 02/08/17 02/09/17 16:55 23:51 05:51 WBC RBC Hgb Hct MCV MCH RDW Plt Count Lymph % (Auto) Person % (Auto) Eos % (Auto) Seg Neutrophils % Seg Neuts % (Manual) Lymphocytes % (Manual) Seg Neutrophils # Seg Neutrophils # Man Lymphocytes # (Manual) POC ABG pH ABG pH POC ABG pCO2 POC ABG pO2 ABG pO2 ABG HCO3 ABG Base Excess ABG Hemoglobin Oxyhemoglobin Sodium Potassium Chloride Carbon Dioxide BUN Creatinine Glucose POC Glucose 246 H 262 H 295 H Lactic Acid Calcium AST Alkaline Phosphatase Albumin Urine WBC (Auto) 02/09/17 02/09/17 02/09/17 07:24 07:24 12:08 WBC 14.7 H RBC 3.39 L Hgb 8.9 L Hct 26.4 L MCV 78 L MCH 26 L RDW 18.4 H Plt Count 670 H Lymph % (Auto) 11.8 L Person % (Auto) Eos % (Auto) Seg Neutrophils % 81.2 H Seg Neuts % (Manual) Lymphocytes % (Manual) Seg Neutrophils # 11.9 H Seg Neutrophils # Man Lymphocytes # (Manual) POC ABG pH ABG pH POC ABG pCO2 POC ABG pO2 ABG pO2 ABG HCO3 ABG Base Excess ABG Hemoglobin Oxyhemoglobin Sodium Potassium Chloride 95.5 L Carbon Dioxide BUN 52 H Creatinine Glucose 277 H POC Glucose 236 H Lactic Acid Calcium AST Alkaline Phosphatase Albumin Urine WBC (Auto) 02/09/17 02/10/17 02/10/17 18:39 00:01 05:44 WBC RBC Hgb Hct MCV MCH RDW Plt Count Lymph % (Auto) Person % (Auto) Eos % (Auto) Seg Neutrophils % Seg Neuts % (Manual) Lymphocytes % (Manual) Seg Neutrophils # Seg Neutrophils # Man Lymphocytes # (Manual) POC ABG pH ABG pH POC ABG pCO2 POC ABG pO2 ABG pO2 ABG HCO3 ABG Base Excess ABG Hemoglobin Oxyhemoglobin Sodium Potassium Chloride Carbon Dioxide BUN Creatinine Glucose POC Glucose 151 H 210 H 201 H Lactic Acid Calcium AST Alkaline Phosphatase Albumin Urine WBC (Auto) 02/10/17 02/10/17 02/10/17 11:21 17:29 23:56 WBC RBC Hgb Hct MCV MCH RDW Plt Count Lymph % (Auto) Person % (Auto) Eos % (Auto) Seg Neutrophils % Seg Neuts % (Manual) Lymphocytes % (Manual) Seg Neutrophils # Seg Neutrophils # Man Lymphocytes # (Manual) POC ABG pH ABG pH POC ABG pCO2 POC ABG pO2 ABG pO2 ABG HCO3 ABG Base Excess ABG Hemoglobin Oxyhemoglobin Sodium Potassium Chloride Carbon Dioxide BUN Creatinine Glucose POC Glucose 233 H 167 H 191 H Lactic Acid Calcium AST Alkaline Phosphatase Albumin Urine WBC (Auto) 02/11/17 02/11/17 02/11/17 05:24 12:25 17:03 WBC RBC Hgb Hct MCV MCH RDW Plt Count Lymph % (Auto) Person % (Auto) Eos % (Auto) Seg Neutrophils % Seg Neuts % (Manual) Lymphocytes % (Manual) Seg Neutrophils # Seg Neutrophils # Man Lymphocytes # (Manual) POC ABG pH ABG pH POC ABG pCO2 POC ABG pO2 ABG pO2 ABG HCO3 ABG Base Excess ABG Hemoglobin Oxyhemoglobin Sodium Potassium Chloride Carbon Dioxide BUN Creatinine Glucose POC Glucose 135 H 275 H 172 H Lactic Acid Calcium AST Alkaline Phosphatase Albumin Urine WBC (Auto) 02/11/17 02/12/17 02/12/17 23:59 05:39 11:33 WBC RBC Hgb Hct MCV MCH RDW Plt Count Lymph % (Auto) Person % (Auto) Eos % (Auto) Seg Neutrophils % Seg Neuts % (Manual) Lymphocytes % (Manual) Seg Neutrophils # Seg Neutrophils # Man Lymphocytes # (Manual) POC ABG pH ABG pH POC ABG pCO2 POC ABG pO2 ABG pO2 ABG HCO3 ABG Base Excess ABG Hemoglobin Oxyhemoglobin Sodium Potassium Chloride Carbon Dioxide BUN Creatinine Glucose POC Glucose 215 H 261 H 217 H Lactic Acid Calcium AST Alkaline Phosphatase Albumin Urine WBC (Auto) 02/12/17 02/13/17 02/13/17 17:55 00:25 06:46 WBC RBC Hgb Hct MCV MCH RDW Plt Count Lymph % (Auto) Person % (Auto) Eos % (Auto) Seg Neutrophils % Seg Neuts % (Manual) Lymphocytes % (Manual) Seg Neutrophils # Seg Neutrophils # Man Lymphocytes # (Manual) POC ABG pH ABG pH POC ABG pCO2 POC ABG pO2 ABG pO2 ABG HCO3 ABG Base Excess ABG Hemoglobin Oxyhemoglobin Sodium Potassium Chloride Carbon Dioxide BUN Creatinine Glucose POC Glucose 172 H 207 H 219 H Lactic Acid Calcium AST Alkaline Phosphatase Albumin Urine WBC (Auto)
--- NOTE | 2017-02-13 16:21 | Progress Note ---
Subjective Date of service: 02/13/17 Principal diagnosis: Acute respiratory failure,encephalopathy Interval history: Assessment and Plan Assessment: Hypoglycemic brain injury Persistent vegetative state Metabolic encephalopathy Hypoglycemia/hypothermia Acute respiratory failure mechanical ventilator greater than 96 hours Sepsis ruled out, UTI ruled out hyponatremia, Hypothyroidism DNR- awaiting hospice placement, awaiting guardianship from the state to give consent, as has no family to give consent Subjective Date of service: 02/12/17 Principal diagnosis: Acute respiratory failure,encephalopathy Interval history: Patient is unresponsive Chart and on interdisciplinary notes reviewed He is DO NOT RESUSCITATE Objective - Constitutional Vitals: Vital Signs - 12hr 02/13/17 02/13/17 02/13/17 05:01 06:01 07:01 Temperature Pulse Rate 70 64 67 Pulse Rate [ From Monitor] Respiratory 29 H 18 16 Rate Blood Pressure 160/80 152/83 168/86 O2 Sat by Pulse 100 100 100 Oximetry 02/13/17 02/13/17 02/13/17 07:50 08:00 08:01 Temperature 98.4 F Pulse Rate 68 65 Pulse Rate [ 68 From Monitor] Respiratory 17 14 Rate Blood Pressure 142/86 151/83 O2 Sat by Pulse 100 100 Oximetry 02/13/17 02/13/17 02/13/17 09:01 10:00 11:01 Temperature Pulse Rate 70 69 69 Pulse Rate [ From Monitor] Respiratory 22 20 20 Rate Blood Pressure 147/90 163/93 153/92 O2 Sat by Pulse 100 100 100 Oximetry 02/13/17 02/13/17 02/13/17 11:21 11:22 11:34 Temperature Pulse Rate 70 70 68 Pulse Rate [ From Monitor] Respiratory 18 Rate Blood Pressure 153/92 153/92 O2 Sat by Pulse 100 Oximetry 02/13/17 02/13/17 02/13/17 12:00 12:01 13:01 Temperature 98.5 F Pulse Rate 65 68 Pulse Rate [ From Monitor] Respiratory 22 11 L Rate Blood Pressure 151/87 149/83 O2 Sat by Pulse 100 100 Oximetry 02/13/17 02/13/17 02/13/17 13:30 14:01 15:00 Temperature Pulse Rate 73 65 Pulse Rate [ 68 From Monitor] Respiratory 12 25 H 11 L Rate Blood Pressure 123/93 126/86 O2 Sat by Pulse 100 100 100 Oximetry 02/13/17 16:00 Temperature 98.7 F Pulse Rate Pulse Rate [ From Monitor] Respiratory Rate Blood Pressure O2 Sat by Pulse Oximetry General appearance: Present: no acute distress - Neck Neck: supple - Respiratory Respiratory effort: normal Respiratory: bilateral: CTA (patient is intubated) - Cardiovascular Rhythm: regular Heart Sounds: Present: S1 & S2 Extremities: No edema - Gastrointestinal General gastrointestinal: Present: soft. Absent: hepatomegaly, splenomegaly - Neurologic Neurologic: other (unresponsive and opens eyes involuntarily) - Labs CBC & Chem 7: 02/09/17 07:24 02/09/17 07:24 Labs: Abnormal lab results 02/12/17 02/13/17 02/13/17 Range/Units 17:55 00:25 06:46 POC Glucose 172 H 207 H 219 H (70-105)
[2017-02-14] MEDS: NOVOLOG SUB-Q SCH ×4 (00:29→18:36)
[2017-02-14] MEDS: SYNTHROID PO SCH (06:23)
[2017-02-14] MEDS: HEPARIN SUB-Q SCH ×2 (10:26→21:42)
[2017-02-14] MEDS: NORMODYNE PO SCH ×2 (10:27→21:42)
[2017-02-14] MEDS: LEVEMIR (NF) SUB-Q SCH (10:28)
[2017-02-14] MEDS: PEPCID PO SCH ×2 (10:28→21:43)
--- NOTE | 2017-02-14 10:39 | Progress Note ---
Assessment and Plan 51 y/o male found down, concern for sepsis and now encephalopathic requiring mechanical ventilation. No New recs for today. 1. continue supportive care 2. Spoke with [employer] and the [employer] OFFICER has requested that guardianship be persued. Dilemma is, once patient has been awarded guardianship, who will take him. Morally and ethically, given the prognosis provided by neurology, I do not feel placing a tracheostomy is the right thing to do. 3. Added imodium for diarrhea, improved. CCT 31 minutes. Subjective Date of service: 02/14/17 Principal diagnosis: Acute respiratory failure,encephalopathy Interval history: No acute events. Mental status has not changed. Now having periods of apnea on PSV Objective Vital Signs - 12hr 02/13/17 02/13/17 02/13/17 22:44 22:45 23:01 Temperature Pulse Rate 66 65 Pulse Rate [ From Monitor] Respiratory 15 18 Rate Respiratory 15 Rate [ Generalized] Blood Pressure 142/85 152/84 O2 Sat by Pulse 100 Oximetry 02/13/17 02/14/17 02/14/17 23:45 00:00 00:01 Temperature 97.4 F L Pulse Rate 65 Pulse Rate [ From Monitor] Respiratory 16 13 Rate Respiratory Rate [ Generalized] Blood Pressure 119/68 O2 Sat by Pulse 100 Oximetry 02/14/17 02/14/17 02/14/17 00:43 01:00 02:00 Temperature Pulse Rate 64 62 57 L Pulse Rate [ From Monitor] Respiratory 15 13 Rate Respiratory Rate [ Generalized] Blood Pressure 102/68 118/74 123/75 O2 Sat by Pulse 100 100 100 Oximetry 02/14/17 02/14/17 02/14/17 03:00 03:47 04:00 Temperature 97.8 F Pulse Rate 57 L 56 L Pulse Rate [ 75 From Monitor] Respiratory 14 21 13 Rate Respiratory Rate [ Generalized] Blood Pressure 120/78 123/76 O2 Sat by Pulse 100 100 100 Oximetry 02/14/17 02/14/17 02/14/17 05:00 06:00 06:52 Temperature Pulse Rate 56 L 58 L 60 Pulse Rate [ From Monitor] Respiratory 14 14 Rate Respiratory Rate [ Generalized] Blood Pressure 123/76 133/80 O2 Sat by Pulse 100 100 Oximetry 02/14/17 02/14/17 02/14/17 07:00 07:45 08:00 Temperature 97.7 F Pulse Rate 58 L 61 59 L Pulse Rate [ From Monitor] Respiratory 15 15 Rate Respiratory Rate [ Generalized] Blood Pressure 129/83 126/79 144/81 O2 Sat by Pulse 100 100 100 Oximetry 02/14/17 10:27 Temperature Pulse Rate 62 Pulse Rate [ From Monitor] Respiratory Rate Respiratory Rate [ Generalized] Blood Pressure 134/88 O2 Sat by Pulse Oximetry Constitutional: comatose, other (orally intubated, on vent) Eyes: non-icteric ENT: oropharynx moist Neck: supple Effort: normal Ascultation: Bilateral: clear, diminished breath sounds Cardiovascular: regular rate and rhythm (no mrg) Gastrointestinal: normoactive bowel sounds, soft, non-tender, non-distended Integumentary: normal Extremities: no cyanosis, no edema, pink and warm Neurologic: other (unresponsive, flaccid extremities) Psychiatric: other (unable to obtain) CBC and BMP: 02/09/17 07:24 02/09/17 07:24 ABG, PT/INR, D-dimer: ABG POC ABG pH 7.442 (7.35-7.45) 01/31/17 18:55 ABG pH 7.420 pH Units (7.350-7.450) 01/17/17 04:35 POC ABG pCO2 32.8 (35-45) L 01/31/17 18:55 ABG pCO2 34.5 mm Hg 01/17/17 04:35 POC ABG pO2 82 (80-105) 01/31/17 18:55 ABG pO2 160.3 mm Hg (80.0-90.0) H 01/17/17 04:35 POC ABG HCO3 22.4 01/31/17 18:55 POC ABG Total CO2 23 01/31/17 18:55 POC ABG O2 Sat 97 01/31/17 18:55 ABG O2 Saturation 99.0 % (95.0-99.0) 01/17/17 04:35 PT/INR, D-dimer PT 14.1 Sec. (12.2-14.9) 01/17/17 04:10 INR 1.04 (0.87-1.13) 01/17/17 04:10 Abnormal lab findings: Abnormal Labs 01/09/17 01/09/17 01/09/17 12:49 13:13 14:21 WBC RBC Hgb Hct MCV MCH RDW Plt Count Lymph % (Auto) [place] % (Auto) Eos % (Auto) Seg Neutrophils % Seg Neuts % (Manual) Lymphocytes % (Manual) Seg Neutrophils # Seg Neutrophils # Man Lymphocytes # (Manual) POC ABG pH ABG pH POC ABG pCO2 POC ABG pO2 ABG pO2 ABG HCO3 ABG Base Excess ABG Hemoglobin Oxyhemoglobin Sodium Potassium Chloride Carbon Dioxide BUN Creatinine Glucose POC Glucose < 40 L 128 H 65 L Lactic Acid Calcium AST Alkaline Phosphatase Albumin Urine WBC (Auto) 01/09/17 01/09/17 01/09/17 15:09 16:28 17:14 WBC RBC Hgb Hct MCV MCH RDW Plt Count Lymph % (Auto) [place] % (Auto) Eos % (Auto) Seg Neutrophils % Seg Neuts % (Manual) Lymphocytes % (Manual) Seg Neutrophils # Seg Neutrophils # Man Lymphocytes # (Manual) POC ABG pH ABG pH POC ABG pCO2 POC ABG pO2 ABG pO2 ABG HCO3 ABG Base Excess ABG Hemoglobin Oxyhemoglobin Sodium Potassium Chloride Carbon Dioxide BUN Creatinine Glucose POC Glucose 120 H 44 L 112 H Lactic Acid Calcium AST Alkaline Phosphatase Albumin Urine WBC (Auto) 01/10/17 01/10/17 01/10/17 04:30 04:30 05:41 WBC 24.1 H RBC 3.38 L Hgb 8.5 L Hct 26.0 L MCV 77 L MCH 25 L RDW 17.9 H Plt Count 474 H Lymph % (Auto) [place] % (Auto) Eos % (Auto) Seg Neutrophils % Seg Neuts % (Manual) 88.0 H Lymphocytes % (Manual) 4.0 L Seg Neutrophils # Seg Neutrophils # Man 21.2 H Lymphocytes # (Manual) 1.0 L POC ABG pH ABG pH POC ABG pCO2 POC ABG pO2 ABG pO2 ABG HCO3 ABG Base Excess ABG Hemoglobin Oxyhemoglobin Sodium Potassium Chloride Carbon Dioxide 17 L BUN 27 H Creatinine Glucose POC Glucose 68 L Lactic Acid Calcium 7.5 L AST Alkaline Phosphatase Albumin Urine WBC (Auto) 01/10/17 01/10/17 01/10/17 05:45 07:47 10:50 WBC RBC Hgb Hct MCV MCH RDW Plt Count Lymph % (Auto) [place] % (Auto) Eos % (Auto) Seg Neutrophils % Seg Neuts % (Manual) Lymphocytes % (Manual) Seg Neutrophils # Seg Neutrophils # Man Lymphocytes # (Manual) POC ABG pH ABG pH POC ABG pCO2 26.6 L POC ABG pO2 207 H ABG pO2 ABG HCO3 ABG Base Excess ABG Hemoglobin Oxyhemoglobin Sodium Potassium Chloride Carbon Dioxide BUN Creatinine Glucose POC Glucose 148 H 165 H Lactic Acid Calcium AST Alkaline Phosphatase Albumin Urine WBC (Auto) 01/10/17 01/10/17 01/10/17 13:41 20:20 21:39 WBC RBC Hgb Hct MCV MCH RDW Plt Count Lymph % (Auto) [place] % (Auto) Eos % (Auto) Seg Neutrophils % Seg Neuts % (Manual) Lymphocytes % (Manual) Seg Neutrophils # Seg Neutrophils # Man Lymphocytes # (Manual) POC ABG pH ABG pH POC ABG pCO2 POC ABG pO2 ABG pO2 ABG HCO3 ABG Base Excess ABG Hemoglobin Oxyhemoglobin Sodium Potassium Chloride Carbon Dioxide BUN Creatinine Glucose POC Glucose 114 H 150 H 175 H Lactic Acid Calcium AST Alkaline Phosphatase Albumin Urine WBC (Auto) 01/10/17 01/11/17 01/11/17 23:24 00:19 04:06 WBC RBC Hgb Hct MCV MCH RDW Plt Count Lymph % (Auto) [place] % (Auto) Eos % (Auto) Seg Neutrophils % Seg Neuts % (Manual) Lymphocytes % (Manual) Seg Neutrophils # Seg Neutrophils # Man Lymphocytes # (Manual) POC ABG pH 7.463 H ABG pH POC ABG pCO2 26.2 L POC ABG pO2 185 H ABG pO2 ABG HCO3 ABG Base Excess ABG Hemoglobin Oxyhemoglobin Sodium Potassium Chloride Carbon Dioxide BUN Creatinine Glucose POC Glucose 155 H 163 H Lactic Acid Calcium AST Alkaline Phosphatase Albumin Urine WBC (Auto) 01/11/17 01/11/17 01/11/17 05:20 05:20 06:21 WBC 15.2 H RBC 3.40 L Hgb 8.9 L Hct 26.3 L MCV 78 L MCH 26 L RDW 18.6 H Plt Count 462 H Lymph % (Auto) 13.2 L [place] % (Auto) Eos % (Auto) Seg Neutrophils % 80.8 H Seg Neuts % (Manual) Lymphocytes % (Manual) Seg Neutrophils # 12.3 H Seg Neutrophils # Man Lymphocytes # (Manual) POC ABG pH ABG pH POC ABG pCO2 POC ABG pO2 ABG pO2 ABG HCO3 ABG Base Excess ABG Hemoglobin Oxyhemoglobin Sodium Potassium 3.4 L Chloride 111.5 H Carbon Dioxide 17 L BUN Creatinine Glucose 147 H POC Glucose 139 H Lactic Acid Calcium 8.0 L AST Alkaline Phosphatase Albumin Urine WBC (Auto) 01/11/17 01/11/17 01/11/17 07:57 11:46 16:50 WBC RBC Hgb Hct MCV MCH RDW Plt Count Lymph % (Auto) [place] % (Auto) Eos % (Auto) Seg Neutrophils % Seg Neuts % (Manual) Lymphocytes % (Manual) Seg Neutrophils # Seg Neutrophils # Man Lymphocytes # (Manual) POC ABG pH ABG pH POC ABG pCO2 POC ABG pO2 ABG pO2 ABG HCO3 ABG Base Excess ABG Hemoglobin Oxyhemoglobin Sodium Potassium Chloride Carbon Dioxide BUN Creatinine Glucose POC Glucose 188 H 199 H 235 H Lactic Acid Calcium AST Alkaline Phosphatase Albumin Urine WBC (Auto) 01/11/17 01/12/17 01/12/17 23:15 05:02 06:56 WBC RBC Hgb Hct MCV MCH RDW Plt Count Lymph % (Auto) [place] % (Auto) Eos % (Auto) Seg Neutrophils % Seg Neuts % (Manual) Lymphocytes % (Manual) Seg Neutrophils # Seg Neutrophils # Man Lymphocytes # (Manual) POC ABG pH ABG pH POC ABG pCO2 28.0 L POC ABG pO2 178 H ABG pO2 ABG HCO3 ABG Base Excess ABG Hemoglobin Oxyhemoglobin Sodium Potassium Chloride Carbon Dioxide BUN Creatinine Glucose POC Glucose 155 H 119 H Lactic Acid Calcium AST Alkaline Phosphatase Albumin Urine WBC (Auto) 01/12/17 01/13/17 01/13/17 14:50 03:37 03:37 WBC RBC 3.61 L Hgb 9.3 L Hct 28.0 L MCV 78 L MCH 26 L RDW 18.2 H Plt Count Lymph % (Auto) [place] % (Auto) Eos % (Auto) Seg Neutrophils % Seg Neuts % (Manual) Lymphocytes % (Manual) Seg Neutrophils # Seg Neutrophils # Man Lymphocytes # (Manual) POC ABG pH ABG pH POC ABG pCO2 POC ABG pO2 ABG pO2 ABG HCO3 ABG Base Excess ABG Hemoglobin Oxyhemoglobin Sodium Potassium Chloride 112.4 H Carbon Dioxide 19 L BUN Creatinine Glucose 118 H POC Glucose 164 H Lactic Acid Calcium 8.0 L AST Alkaline Phosphatase Albumin Urine WBC (Auto) 01/13/17 01/13/17 01/13/17 04:26 06:15 11:50 WBC RBC Hgb Hct MCV MCH RDW Plt Count Lymph % (Auto) [place] % (Auto) Eos % (Auto) Seg Neutrophils % Seg Neuts % (Manual) Lymphocytes % (Manual) Seg Neutrophils # Seg Neutrophils # Man Lymphocytes # (Manual) POC ABG pH 7.485 H ABG pH POC ABG pCO2 25.4 L POC ABG pO2 73 L ABG pO2 ABG HCO3 ABG Base Excess ABG Hemoglobin Oxyhemoglobin Sodium Potassium Chloride Carbon Dioxide BUN Creatinine Glucose POC Glucose 116 H 171 H Lactic Acid Calcium AST Alkaline Phosphatase Albumin Urine WBC (Auto) 01/13/17 01/14/17 01/14/17 17:31 00:02 04:50 WBC RBC 3.32 L Hgb 8.5 L Hct 26.1 L MCV 79 L MCH 26 L RDW 18.2 H Plt Count Lymph % (Auto) [place] % (Auto) 9.0 H Eos % (Auto) Seg Neutrophils % Seg Neuts % (Manual) Lymphocytes % (Manual) Seg Neutrophils # Seg Neutrophils # Man Lymphocytes # (Manual) POC ABG pH ABG pH POC ABG pCO2 POC ABG pO2 ABG pO2 ABG HCO3 ABG Base Excess ABG Hemoglobin Oxyhemoglobin Sodium Potassium Chloride Carbon Dioxide BUN Creatinine Glucose POC Glucose 203 H 157 H Lactic Acid Calcium AST Alkaline Phosphatase Albumin Urine WBC (Auto) 01/14/17 01/14/17 01/14/17 04:50 05:10 11:27 WBC RBC Hgb Hct MCV MCH RDW Plt Count Lymph % (Auto) [place] % (Auto) Eos % (Auto) Seg Neutrophils % Seg Neuts % (Manual) Lymphocytes % (Manual) Seg Neutrophils # Seg Neutrophils # Man Lymphocytes # (Manual) POC ABG pH ABG pH POC ABG pCO2 POC ABG pO2 ABG pO2 ABG HCO3 ABG Base Excess ABG Hemoglobin Oxyhemoglobin Sodium Potassium Chloride 112.5 H Carbon Dioxide BUN Creatinine Glucose 149 H POC Glucose 176 H 147 H Lactic Acid Calcium 8.1 L AST Alkaline Phosphatase Albumin Urine WBC (Auto) 01/14/17 01/14/17 01/15/17 14:07 16:52 00:04 WBC RBC Hgb Hct MCV MCH RDW Plt Count Lymph % (Auto) [place] % (Auto) Eos % (Auto) Seg Neutrophils % Seg Neuts % (Manual) Lymphocytes % (Manual) Seg Neutrophils # Seg Neutrophils # Man Lymphocytes # (Manual) POC ABG pH ABG pH POC ABG pCO2 POC ABG pO2 ABG pO2 ABG HCO3 ABG Base Excess ABG Hemoglobin Oxyhemoglobin Sodium Potassium Chloride Carbon Dioxide BUN Creatinine Glucose POC Glucose 131 H 193 H Lactic Acid Calcium AST Alkaline Phosphatase Albumin Urine WBC (Auto) 53.0 H 01/15/17 01/15/17 01/15/17 05:26 11:49 17:47 WBC RBC Hgb Hct MCV MCH RDW Plt Count Lymph % (Auto) [place] % (Auto) Eos % (Auto) Seg Neutrophils % Seg Neuts % (Manual) Lymphocytes % (Manual) Seg Neutrophils # Seg Neutrophils # Man Lymphocytes # (Manual) POC ABG pH ABG pH POC ABG pCO2 POC ABG pO2 ABG pO2 ABG HCO3 ABG Base Excess ABG Hemoglobin Oxyhemoglobin Sodium Potassium Chloride Carbon Dioxide BUN Creatinine Glucose POC Glucose 215 H 121 H 211 H Lactic Acid Calcium AST Alkaline Phosphatase Albumin Urine WBC (Auto) 01/15/17 01/16/17 01/16/17 21:33 04:30 05:28 WBC RBC Hgb Hct MCV MCH RDW Plt Count Lymph % (Auto) [place] % (Auto) Eos % (Auto) Seg Neutrophils % Seg Neuts % (Manual) Lymphocytes % (Manual) Seg Neutrophils # Seg Neutrophils # Man Lymphocytes # (Manual) POC ABG pH ABG pH 7.457 H POC ABG pCO2 POC ABG pO2 ABG pO2 55.1 L ABG HCO3 19.4 L ABG Base Excess -4.0 L ABG Hemoglobin 6.8 L Oxyhemoglobin 94.9 L Sodium Potassium Chloride Carbon Dioxide BUN Creatinine Glucose POC Glucose 275 H 271 H Lactic Acid Calcium AST Alkaline Phosphatase Albumin Urine WBC (Auto) 01/16/17 01/16/17 01/17/17 13:45 21:39 04:10 WBC 4.4 L RBC 2.98 L Hgb 7.7 L Hct 23.3 L MCV 78 L MCH 26 L RDW 18.1 H Plt Count Lymph % (Auto) [place] % (Auto) Eos % (Auto) Seg Neutrophils % Seg Neuts % (Manual) Lymphocytes % (Manual) Seg Neutrophils # Seg Neutrophils # Man Lymphocytes # (Manual) POC ABG pH ABG pH POC ABG pCO2 POC ABG pO2 ABG pO2 ABG HCO3 ABG Base Excess ABG Hemoglobin Oxyhemoglobin Sodium Potassium Chloride Carbon Dioxide BUN Creatinine Glucose POC Glucose 236 H 258 H Lactic Acid Calcium AST Alkaline Phosphatase Albumin Urine WBC (Auto) 01/17/17 01/17/17 01/17/17 04:10 04:35 12:23 WBC RBC Hgb Hct MCV MCH RDW Plt Count Lymph % (Auto) [place] % (Auto) Eos % (Auto) Seg Neutrophils % Seg Neuts % (Manual) Lymphocytes % (Manual) Seg Neutrophils # Seg Neutrophils # Man Lymphocytes # (Manual) POC ABG pH ABG pH POC ABG pCO2 POC ABG pO2 ABG pO2 160.3 H ABG HCO3 ABG Base Excess -2.3 L ABG Hemoglobin 7.9 L Oxyhemoglobin Sodium Potassium 3.3 L Chloride 108.7 H Carbon Dioxide 20 L BUN 8 L Creatinine Glucose 202 H POC Glucose 321 H Lactic Acid Calcium 7.6 L AST Alkaline Phosphatase Albumin Urine WBC (Auto) 01/17/17 01/18/17 01/18/17 16:01 05:07 12:09 WBC RBC Hgb Hct MCV MCH RDW Plt Count Lymph % (Auto) [place] % (Auto) Eos % (Auto) Seg Neutrophils % Seg Neuts % (Manual) Lymphocytes % (Manual) Seg Neutrophils # Seg Neutrophils # Man Lymphocytes # (Manual) POC ABG pH ABG pH POC ABG pCO2 POC ABG pO2 ABG pO2 ABG HCO3 ABG Base Excess ABG Hemoglobin Oxyhemoglobin Sodium Potassium Chloride Carbon Dioxide BUN Creatinine Glucose POC Glucose 239 H 155 H 203 H Lactic Acid Calcium AST Alkaline Phosphatase Albumin Urine WBC (Auto) 01/18/17 01/18/17 01/19/17 17:54 23:43 04:28 WBC RBC Hgb Hct MCV MCH RDW Plt Count Lymph % (Auto) [place] % (Auto) Eos % (Auto) Seg Neutrophils % Seg Neuts % (Manual) Lymphocytes % (Manual) Seg Neutrophils # Seg Neutrophils # Man Lymphocytes # (Manual) POC ABG pH ABG pH POC ABG pCO2 POC ABG pO2 ABG pO2 ABG HCO3 ABG Base Excess ABG Hemoglobin Oxyhemoglobin Sodium Potassium Chloride Carbon Dioxide BUN Creatinine Glucose POC Glucose 132 H 125 H 182 H Lactic Acid Calcium AST Alkaline Phosphatase Albumin Urine WBC (Auto) 01/19/17 01/19/17 01/20/17 12:11 17:23 00:12 WBC RBC Hgb Hct MCV MCH RDW Plt Count Lymph % (Auto) [place] % (Auto) Eos % (Auto) Seg Neutrophils % Seg Neuts % (Manual) Lymphocytes % (Manual) Seg Neutrophils # Seg Neutrophils # Man Lymphocytes # (Manual) POC ABG pH ABG pH POC ABG pCO2 POC ABG pO2 ABG pO2 ABG HCO3 ABG Base Excess ABG Hemoglobin Oxyhemoglobin Sodium Potassium Chloride Carbon Dioxide BUN Creatinine Glucose POC Glucose 153 H 66 L 139 H Lactic Acid Calcium AST Alkaline Phosphatase Albumin Urine WBC (Auto) 01/20/17 01/20/17 01/20/17 05:44 11:48 17:42 WBC RBC Hgb Hct MCV MCH RDW Plt Count Lymph % (Auto) [place] % (Auto) Eos % (Auto) Seg Neutrophils % Seg Neuts % (Manual) Lymphocytes % (Manual) Seg Neutrophils # Seg Neutrophils # Man Lymphocytes # (Manual) POC ABG pH ABG pH POC ABG pCO2 POC ABG pO2 ABG pO2 ABG HCO3 ABG Base Excess ABG Hemoglobin Oxyhemoglobin Sodium Potassium Chloride Carbon Dioxide BUN Creatinine Glucose POC Glucose 176 H 218 H 132 H Lactic Acid Calcium AST Alkaline Phosphatase Albumin Urine WBC (Auto) 01/20/17 01/21/17 01/21/17 23:43 05:34 11:17 WBC RBC Hgb Hct MCV MCH RDW Plt Count Lymph % (Auto) [place] % (Auto) Eos % (Auto) Seg Neutrophils % Seg Neuts % (Manual) Lymphocytes % (Manual) Seg Neutrophils # Seg Neutrophils # Man Lymphocytes # (Manual) POC ABG pH ABG pH POC ABG pCO2 POC ABG pO2 ABG pO2 ABG HCO3 ABG Base Excess ABG Hemoglobin Oxyhemoglobin Sodium Potassium Chloride Carbon Dioxide BUN Creatinine Glucose POC Glucose 178 H 106 H 213 H Lactic Acid Calcium AST Alkaline Phosphatase Albumin Urine WBC (Auto) 01/21/17 01/22/17 01/22/17 23:37 04:00 04:00 WBC RBC 3.26 L Hgb 8.3 L Hct 25.5 L MCV 78 L MCH 25 L RDW 17.9 H Plt Count Lymph % (Auto) [place] % (Auto) 7.9 H Eos % (Auto) 6.2 H Seg Neutrophils % Seg Neuts % (Manual) Lymphocytes % (Manual) Seg Neutrophils # Seg Neutrophils # Man Lymphocytes # (Manual) POC ABG pH ABG pH POC ABG pCO2 POC ABG pO2 ABG pO2 ABG HCO3 ABG Base Excess ABG Hemoglobin Oxyhemoglobin Sodium Potassium Chloride 95.5 L Carbon Dioxide 31 H D BUN Creatinine Glucose 134 H POC Glucose 140 H Lactic Acid Calcium AST 44 H Alkaline Phosphatase 379 H Albumin 2.7 L Urine WBC (Auto) 01/22/17 01/22/17 01/22/17 04:58 12:12 18:12 WBC RBC Hgb Hct MCV MCH RDW Plt Count Lymph % (Auto) [place] % (Auto) Eos % (Auto) Seg Neutrophils % Seg Neuts % (Manual) Lymphocytes % (Manual) Seg Neutrophils # Seg Neutrophils # Man Lymphocytes # (Manual) POC ABG pH ABG pH POC ABG pCO2 POC ABG pO2 ABG pO2 ABG HCO3 ABG Base Excess ABG Hemoglobin Oxyhemoglobin Sodium Potassium Chloride Carbon Dioxide BUN Creatinine Glucose POC Glucose 146 H 255 H 182 H Lactic Acid Calcium AST Alkaline Phosphatase Albumin Urine WBC (Auto) 01/22/17 01/23/17 01/23/17 23:39 04:43 12:12 WBC RBC Hgb Hct MCV MCH RDW Plt Count Lymph % (Auto) [place] % (Auto) Eos % (Auto) Seg Neutrophils % Seg Neuts % (Manual) Lymphocytes % (Manual) Seg Neutrophils # Seg Neutrophils # Man Lymphocytes # (Manual) POC ABG pH ABG pH POC ABG pCO2 POC ABG pO2 ABG pO2 ABG HCO3 ABG Base Excess ABG Hemoglobin Oxyhemoglobin Sodium Potassium Chloride Carbon Dioxide BUN Creatinine Glucose POC Glucose 134 H 218 H 128 H Lactic Acid Calcium AST Alkaline Phosphatase Albumin Urine WBC (Auto) 01/23/17 01/24/17 01/24/17 17:36 00:08 05:16 WBC RBC Hgb Hct MCV MCH RDW Plt Count Lymph % (Auto) [place] % (Auto) Eos % (Auto) Seg Neutrophils % Seg Neuts % (Manual) Lymphocytes % (Manual) Seg Neutrophils # Seg Neutrophils # Man Lymphocytes # (Manual) POC ABG pH ABG pH POC ABG pCO2 POC ABG pO2 ABG pO2 ABG HCO3 ABG Base Excess ABG Hemoglobin Oxyhemoglobin Sodium Potassium Chloride Carbon Dioxide BUN Creatinine Glucose POC Glucose 156 H 129 H 169 H Lactic Acid Calcium AST Alkaline Phosphatase Albumin Urine WBC (Auto) 01/24/17 01/24/17 01/24/17 11:40 17:43 23:23 WBC RBC Hgb Hct MCV MCH RDW Plt Count Lymph % (Auto) [place] % (Auto) Eos % (Auto) Seg Neutrophils % Seg Neuts % (Manual) Lymphocytes % (Manual) Seg Neutrophils # Seg Neutrophils # Man Lymphocytes # (Manual) POC ABG pH ABG pH POC ABG pCO2 POC ABG pO2 ABG pO2 ABG HCO3 ABG Base Excess ABG Hemoglobin Oxyhemoglobin Sodium Potassium Chloride Carbon Dioxide BUN Creatinine Glucose POC Glucose 187 H 215 H 222 H Lactic Acid Calcium AST Alkaline Phosphatase Albumin Urine WBC (Auto) 01/25/17 01/25/17 01/25/17 04:56 11:52 17:37 WBC RBC Hgb Hct MCV MCH RDW Plt Count Lymph % (Auto) [place] % (Auto) Eos % (Auto) Seg Neutrophils % Seg Neuts % (Manual) Lymphocytes % (Manual) Seg Neutrophils # Seg Neutrophils # Man Lymphocytes # (Manual) POC ABG pH ABG pH POC ABG pCO2 POC ABG pO2 ABG pO2 ABG HCO3 ABG Base Excess ABG Hemoglobin Oxyhemoglobin Sodium Potassium Chloride Carbon Dioxide BUN Creatinine Glucose POC Glucose 210 H 284 H 218 H Lactic Acid Calcium AST Alkaline Phosphatase Albumin Urine WBC (Auto) 01/26/17 01/26/17 01/26/17 00:02 05:33 12:17 WBC RBC Hgb Hct MCV MCH RDW Plt Count Lymph % (Auto) [place] % (Auto) Eos % (Auto) Seg Neutrophils % Seg Neuts % (Manual) Lymphocytes % (Manual) Seg Neutrophils # Seg Neutrophils # Man Lymphocytes # (Manual) POC ABG pH ABG pH POC ABG pCO2 POC ABG pO2 ABG pO2 ABG HCO3 ABG Base Excess ABG Hemoglobin Oxyhemoglobin Sodium Potassium Chloride Carbon Dioxide BUN Creatinine Glucose POC Glucose 192 H 199 H 227 H Lactic Acid Calcium AST Alkaline Phosphatase Albumin Urine WBC (Auto) 01/26/17 01/26/17 01/27/17 17:50 23:57 05:31 WBC RBC Hgb Hct MCV MCH RDW Plt Count Lymph % (Auto) [place] % (Auto) Eos % (Auto) Seg Neutrophils % Seg Neuts % (Manual) Lymphocytes % (Manual) Seg Neutrophils # Seg Neutrophils # Man Lymphocytes # (Manual) POC ABG pH ABG pH POC ABG pCO2 POC ABG pO2 ABG pO2 ABG HCO3 ABG Base Excess ABG Hemoglobin Oxyhemoglobin Sodium Potassium Chloride Carbon Dioxide BUN Creatinine Glucose POC Glucose 229 H 186 H 285 H Lactic Acid Calcium AST Alkaline Phosphatase Albumin Urine WBC (Auto) 01/27/17 01/27/17 01/27/17 11:42 17:47 23:58 WBC RBC Hgb Hct MCV MCH RDW Plt Count Lymph % (Auto) [place] % (Auto) Eos % (Auto) Seg Neutrophils % Seg Neuts % (Manual) Lymphocytes % (Manual) Seg Neutrophils # Seg Neutrophils # Man Lymphocytes # (Manual) POC ABG pH ABG pH POC ABG pCO2 POC ABG pO2 ABG pO2 ABG HCO3 ABG Base Excess ABG Hemoglobin Oxyhemoglobin Sodium Potassium Chloride Carbon Dioxide BUN Creatinine Glucose POC Glucose 260 H 329 H 225 H Lactic Acid Calcium AST Alkaline Phosphatase Albumin Urine WBC (Auto) 01/27/17 01/27/17 01/28/17 Unknown Unknown 03:44 WBC 12.1 H RBC 3.28 L 3.14 L Hgb 8.5 L 8.2 L Hct 25.5 L 24.1 L MCV 78 L 77 L MCH 26 L 26 L RDW 16.8 H 16.9 H Plt Count 601 H 567 H Lymph % (Auto) [place] % (Auto) Eos % (Auto) Seg Neutrophils % Seg Neuts % (Manual) Lymphocytes % (Manual) Seg Neutrophils # Seg Neutrophils # Man Lymphocytes # (Manual) POC ABG pH ABG pH POC ABG pCO2 POC ABG pO2 ABG pO2 ABG HCO3 ABG Base Excess ABG Hemoglobin Oxyhemoglobin Sodium 128 L Potassium 5.4 H Chloride 87.5 L Carbon Dioxide BUN 44 H Creatinine Glucose 250 H POC Glucose Lactic Acid Calcium AST Alkaline Phosphatase Albumin Urine WBC (Auto) 01/28/17 01/28/17 01/28/17 03:44 11:43 16:47 WBC RBC Hgb Hct MCV MCH RDW Plt Count Lymph % (Auto) [place] % (Auto) Eos % (Auto) Seg Neutrophils % Seg Neuts % (Manual) Lymphocytes % (Manual) Seg Neutrophils # Seg Neutrophils # Man Lymphocytes # (Manual) POC ABG pH ABG pH POC ABG pCO2 POC ABG pO2 ABG pO2 ABG HCO3 ABG Base Excess ABG Hemoglobin Oxyhemoglobin Sodium Potassium Chloride Carbon Dioxide BUN 42 H Creatinine Glucose 128 H POC Glucose 351 H 249 H Lactic Acid Calcium AST Alkaline Phosphatase Albumin Urine WBC (Auto) 01/28/17 01/29/17 01/29/17 17:52 05:25 05:25 WBC 13.6 H RBC 3.25 L Hgb 8.3 L Hct 25.1 L MCV 77 L MCH 26 L RDW 16.8 H Plt Count 514 H Lymph % (Auto) [place] % (Auto) Eos % (Auto) Seg Neutrophils % Seg Neuts % (Manual) Lymphocytes % (Manual) Seg Neutrophils # Seg Neutrophils # Man Lymphocytes # (Manual) POC ABG pH ABG pH POC ABG pCO2 POC ABG pO2 ABG pO2 ABG HCO3 ABG Base Excess ABG Hemoglobin Oxyhemoglobin Sodium Potassium Chloride 97.8 L Carbon Dioxide BUN 34 H Creatinine Glucose 222 H POC Glucose Lactic Acid Calcium AST Alkaline Phosphatase Albumin Urine WBC (Auto) > 182.0 H 01/29/17 01/29/17 01/29/17 09:32 11:56 18:11 WBC RBC Hgb Hct MCV MCH RDW Plt Count Lymph % (Auto) [place] % (Auto) Eos % (Auto) Seg Neutrophils % Seg Neuts % (Manual) Lymphocytes % (Manual) Seg Neutrophils # Seg Neutrophils # Man Lymphocytes # (Manual) POC ABG pH ABG pH POC ABG pCO2 POC ABG pO2 ABG pO2 ABG HCO3 ABG Base Excess ABG Hemoglobin Oxyhemoglobin Sodium Potassium Chloride Carbon Dioxide BUN Creatinine Glucose POC Glucose 261 H 215 H Lactic Acid 2.50 H* Calcium AST Alkaline Phosphatase Albumin Urine WBC (Auto) 01/29/17 01/30/17 01/30/17 23:55 05:31 05:31 WBC 15.2 H RBC 3.09 L Hgb 7.9 L Hct 23.9 L MCV 77 L MCH 26 L RDW 16.9 H Plt Count 569 H Lymph % (Auto) [place] % (Auto) Eos % (Auto) Seg Neutrophils % Seg Neuts % (Manual) Lymphocytes % (Manual) Seg Neutrophils # Seg Neutrophils # Man Lymphocytes # (Manual) POC ABG pH ABG pH POC ABG pCO2 POC ABG pO2 ABG pO2 ABG HCO3 ABG Base Excess ABG Hemoglobin Oxyhemoglobin Sodium Potassium Chloride Carbon Dioxide BUN 24 H Creatinine Glucose 235 H POC Glucose 176 H Lactic Acid Calcium AST Alkaline Phosphatase Albumin Urine WBC (Auto) 01/30/17 01/30/17 01/30/17 05:34 11:38 17:58 WBC RBC Hgb Hct MCV MCH RDW Plt Count Lymph % (Auto) [place] % (Auto) Eos % (Auto) Seg Neutrophils % Seg Neuts % (Manual) Lymphocytes % (Manual) Seg Neutrophils # Seg Neutrophils # Man Lymphocytes # (Manual) POC ABG pH ABG pH POC ABG pCO2 POC ABG pO2 ABG pO2 ABG HCO3 ABG Base Excess ABG Hemoglobin Oxyhemoglobin Sodium Potassium Chloride Carbon Dioxide BUN Creatinine Glucose POC Glucose 243 H 298 H 208 H Lactic Acid Calcium AST Alkaline Phosphatase Albumin Urine WBC (Auto) 01/30/17 01/31/17 01/31/17 23:29 04:39 04:39 WBC 11.4 H RBC 3.22 L Hgb 8.2 L Hct 24.9 L MCV 78 L MCH 25 L RDW 17.2 H Plt Count 576 H Lymph % (Auto) [place] % (Auto) Eos % (Auto) Seg Neutrophils % Seg Neuts % (Manual) Lymphocytes % (Manual) Seg Neutrophils # Seg Neutrophils # Man Lymphocytes # (Manual) POC ABG pH ABG pH POC ABG pCO2 POC ABG pO2 ABG pO2 ABG HCO3 ABG Base Excess ABG Hemoglobin Oxyhemoglobin Sodium Potassium Chloride Carbon Dioxide BUN Creatinine 0.7 L Glucose 223 H POC Glucose 245 H Lactic Acid Calcium AST Alkaline Phosphatase Albumin Urine WBC (Auto) 01/31/17 01/31/17 01/31/17 05:57 12:23 17:41 WBC RBC Hgb Hct MCV MCH RDW Plt Count Lymph % (Auto) [place] % (Auto) Eos % (Auto) Seg Neutrophils % Seg Neuts % (Manual) Lymphocytes % (Manual) Seg Neutrophils # Seg Neutrophils # Man Lymphocytes # (Manual) POC ABG pH ABG pH POC ABG pCO2 POC ABG pO2 ABG pO2 ABG HCO3 ABG Base Excess ABG Hemoglobin Oxyhemoglobin Sodium Potassium Chloride Carbon Dioxide BUN Creatinine Glucose POC Glucose 264 H 252 H 208 H Lactic Acid Calcium AST Alkaline Phosphatase Albumin Urine WBC (Auto) 01/31/17 01/31/17 02/01/17 18:55 22:59 03:38 WBC RBC 2.81 L Hgb 7.4 L Hct 22.1 L MCV 79 L MCH 27 L RDW 17.0 H Plt Count 540 H Lymph % (Auto) [place] % (Auto) Eos % (Auto) Seg Neutrophils % Seg Neuts % (Manual) Lymphocytes % (Manual) Seg Neutrophils # Seg Neutrophils # Man Lymphocytes # (Manual) POC ABG pH ABG pH POC ABG pCO2 32.8 L POC ABG pO2 ABG pO2 ABG HCO3 ABG Base Excess ABG Hemoglobin Oxyhemoglobin Sodium Potassium Chloride Carbon Dioxide BUN Creatinine Glucose POC Glucose 40 L Lactic Acid Calcium AST Alkaline Phosphatase Albumin Urine WBC (Auto) 02/01/17 02/01/17 02/01/17 03:38 05:17 12:19 WBC RBC Hgb Hct MCV MCH RDW Plt Count Lymph % (Auto) [place] % (Auto) Eos % (Auto) Seg Neutrophils % Seg Neuts % (Manual) Lymphocytes % (Manual) Seg Neutrophils # Seg Neutrophils # Man Lymphocytes # (Manual) POC ABG pH ABG pH POC ABG pCO2 POC ABG pO2 ABG pO2 ABG HCO3 ABG Base Excess ABG Hemoglobin Oxyhemoglobin Sodium Potassium Chloride Carbon Dioxide 21 L BUN Creatinine 0.7 L Glucose POC Glucose 140 H 213 H Lactic Acid Calcium AST Alkaline Phosphatase Albumin Urine WBC (Auto) 02/01/17 02/01/17 02/02/17 16:44 23:59 05:14 WBC RBC Hgb Hct MCV MCH RDW Plt Count Lymph % (Auto) [place] % (Auto) Eos % (Auto) Seg Neutrophils % Seg Neuts % (Manual) Lymphocytes % (Manual) Seg Neutrophils # Seg Neutrophils # Man Lymphocytes # (Manual) POC ABG pH ABG pH POC ABG pCO2 POC ABG pO2 ABG pO2 ABG HCO3 ABG Base Excess ABG Hemoglobin Oxyhemoglobin Sodium Potassium Chloride Carbon Dioxide BUN Creatinine Glucose POC Glucose 172 H 181 H 194 H Lactic Acid Calcium AST Alkaline Phosphatase Albumin Urine WBC (Auto) 02/02/17 02/02/17 02/02/17 11:24 11:46 11:46 WBC RBC 2.94 L Hgb 7.5 L Hct 23.0 L MCV 78 L MCH 25 L RDW 16.9 H Plt Count 520 H Lymph % (Auto) [place] % (Auto) Eos % (Auto) Seg Neutrophils % Seg Neuts % (Manual) Lymphocytes % (Manual) Seg Neutrophils # Seg Neutrophils # Man Lymphocytes # (Manual) POC ABG pH ABG pH POC ABG pCO2 POC ABG pO2 ABG pO2 ABG HCO3 ABG Base Excess ABG Hemoglobin Oxyhemoglobin Sodium Potassium Chloride Carbon Dioxide BUN Creatinine 0.6 L Glucose 189 H POC Glucose 209 H Lactic Acid Calcium 8.1 L AST Alkaline Phosphatase Albumin Urine WBC (Auto) 02/02/17 02/02/17 02/03/17 17:47 23:32 05:53 WBC RBC Hgb Hct MCV MCH RDW Plt Count Lymph % (Auto) [place] % (Auto) Eos % (Auto) Seg Neutrophils % Seg Neuts % (Manual) Lymphocytes % (Manual) Seg Neutrophils # Seg Neutrophils # Man Lymphocytes # (Manual) POC ABG pH ABG pH POC ABG pCO2 POC ABG pO2 ABG pO2 ABG HCO3 ABG Base Excess ABG Hemoglobin Oxyhemoglobin Sodium Potassium Chloride Carbon Dioxide BUN Creatinine Glucose POC Glucose 147 H 176 H 224 H Lactic Acid Calcium AST Alkaline Phosphatase Albumin Urine WBC (Auto) 02/03/17 02/03/17 02/03/17 11:19 16:59 23:38 WBC RBC Hgb Hct MCV MCH RDW Plt Count Lymph % (Auto) [place] % (Auto) Eos % (Auto) Seg Neutrophils % Seg Neuts % (Manual) Lymphocytes % (Manual) Seg Neutrophils # Seg Neutrophils # Man Lymphocytes # (Manual) POC ABG pH ABG pH POC ABG pCO2 POC ABG pO2 ABG pO2 ABG HCO3 ABG Base Excess ABG Hemoglobin Oxyhemoglobin Sodium Potassium Chloride Carbon Dioxide BUN Creatinine Glucose POC Glucose 228 H 189 H 191 H Lactic Acid Calcium AST Alkaline Phosphatase Albumin Urine WBC (Auto) 02/04/17 02/04/17 02/04/17 05:45 11:20 17:20 WBC RBC Hgb Hct MCV MCH RDW Plt Count Lymph % (Auto) [place] % (Auto) Eos % (Auto) Seg Neutrophils % Seg Neuts % (Manual) Lymphocytes % (Manual) Seg Neutrophils # Seg Neutrophils # Man Lymphocytes # (Manual) POC ABG pH ABG pH POC ABG pCO2 POC ABG pO2 ABG pO2 ABG HCO3 ABG Base Excess ABG Hemoglobin Oxyhemoglobin Sodium Potassium Chloride Carbon Dioxide BUN Creatinine Glucose POC Glucose 251 H 243 H 163 H Lactic Acid Calcium AST Alkaline Phosphatase Albumin Urine WBC (Auto) 02/05/17 02/05/17 02/05/17 00:17 05:38 12:38 WBC RBC Hgb Hct MCV MCH RDW Plt Count Lymph % (Auto) [place] % (Auto) Eos % (Auto) Seg Neutrophils % Seg Neuts % (Manual) Lymphocytes % (Manual) Seg Neutrophils # Seg Neutrophils # Man Lymphocytes # (Manual) POC ABG pH ABG pH POC ABG pCO2 POC ABG pO2 ABG pO2 ABG HCO3 ABG Base Excess ABG Hemoglobin Oxyhemoglobin Sodium Potassium Chloride Carbon Dioxide BUN Creatinine Glucose POC Glucose 200 H 248 H 241 H Lactic Acid Calcium AST Alkaline Phosphatase Albumin Urine WBC (Auto) 02/05/17 02/05/17 02/06/17 16:29 23:56 05:30 WBC RBC Hgb Hct MCV MCH RDW Plt Count Lymph % (Auto) [place] % (Auto) Eos % (Auto) Seg Neutrophils % Seg Neuts % (Manual) Lymphocytes % (Manual) Seg Neutrophils # Seg Neutrophils # Man Lymphocytes # (Manual) POC ABG pH ABG pH POC ABG pCO2 POC ABG pO2 ABG pO2 ABG HCO3 ABG Base Excess ABG Hemoglobin Oxyhemoglobin Sodium Potassium Chloride Carbon Dioxide BUN Creatinine Glucose POC Glucose 257 H 258 H 120 H Lactic Acid Calcium AST Alkaline Phosphatase Albumin Urine WBC (Auto) 02/06/17 02/06/17 02/06/17 11:50 17:11 23:50 WBC RBC Hgb Hct MCV MCH RDW Plt Count Lymph % (Auto) [place] % (Auto) Eos % (Auto) Seg Neutrophils % Seg Neuts % (Manual) Lymphocytes % (Manual) Seg Neutrophils # Seg Neutrophils # Man Lymphocytes # (Manual) POC ABG pH ABG pH POC ABG pCO2 POC ABG pO2 ABG pO2 ABG HCO3 ABG Base Excess ABG Hemoglobin Oxyhemoglobin Sodium Potassium Chloride Carbon Dioxide BUN Creatinine Glucose POC Glucose 254 H 149 H 240 H Lactic Acid Calcium AST Alkaline Phosphatase Albumin Urine WBC (Auto) 02/07/17 02/07/17 02/07/17 05:22 11:15 18:33 WBC RBC Hgb Hct MCV MCH RDW Plt Count Lymph % (Auto) [place] % (Auto) Eos % (Auto) Seg Neutrophils % Seg Neuts % (Manual) Lymphocytes % (Manual) Seg Neutrophils # Seg Neutrophils # Man Lymphocytes # (Manual) POC ABG pH ABG pH POC ABG pCO2 POC ABG pO2 ABG pO2 ABG HCO3 ABG Base Excess ABG Hemoglobin Oxyhemoglobin Sodium Potassium Chloride Carbon Dioxide BUN Creatinine Glucose POC Glucose 258 H 239 H 176 H Lactic Acid Calcium AST Alkaline Phosphatase Albumin Urine WBC (Auto) 02/07/17 02/08/17 02/08/17 23:59 06:15 11:55 WBC RBC Hgb Hct MCV MCH RDW Plt Count Lymph % (Auto) [place] % (Auto) Eos % (Auto) Seg Neutrophils % Seg Neuts % (Manual) Lymphocytes % (Manual) Seg Neutrophils # Seg Neutrophils # Man Lymphocytes # (Manual) POC ABG pH ABG pH POC ABG pCO2 POC ABG pO2 ABG pO2 ABG HCO3 ABG Base Excess ABG Hemoglobin Oxyhemoglobin Sodium Potassium Chloride Carbon Dioxide BUN Creatinine Glucose POC Glucose 186 H 195 H 129 H Lactic Acid Calcium AST Alkaline Phosphatase Albumin Urine WBC (Auto) 02/08/17 02/08/17 02/09/17 16:55 23:51 05:51 WBC RBC Hgb Hct MCV MCH RDW Plt Count Lymph % (Auto) [place] % (Auto) Eos % (Auto) Seg Neutrophils % Seg Neuts % (Manual) Lymphocytes % (Manual) Seg Neutrophils # Seg Neutrophils # Man Lymphocytes # (Manual) POC ABG pH ABG pH POC ABG pCO2 POC ABG pO2 ABG pO2 ABG HCO3 ABG Base Excess ABG Hemoglobin Oxyhemoglobin Sodium Potassium Chloride Carbon Dioxide BUN Creatinine Glucose POC Glucose 246 H 262 H 295 H Lactic Acid Calcium AST Alkaline Phosphatase Albumin Urine WBC (Auto) 02/09/17 02/09/17 02/09/17 07:24 07:24 12:08 WBC 14.7 H RBC 3.39 L Hgb 8.9 L Hct 26.4 L MCV 78 L MCH 26 L RDW 18.4 H Plt Count 670 H Lymph % (Auto) 11.8 L [place] % (Auto) Eos % (Auto) Seg Neutrophils % 81.2 H Seg Neuts % (Manual) Lymphocytes % (Manual) Seg Neutrophils # 11.9 H Seg Neutrophils # Man Lymphocytes # (Manual) POC ABG pH ABG pH POC ABG pCO2 POC ABG pO2 ABG pO2 ABG HCO3 ABG Base Excess ABG Hemoglobin Oxyhemoglobin Sodium Potassium Chloride 95.5 L Carbon Dioxide BUN 52 H Creatinine Glucose 277 H POC Glucose 236 H Lactic Acid Calcium AST Alkaline Phosphatase Albumin Urine WBC (Auto) 02/09/17 02/10/17 02/10/17 18:39 00:01 05:44 WBC RBC Hgb Hct MCV MCH RDW Plt Count Lymph % (Auto) [place] % (Auto) Eos % (Auto) Seg Neutrophils % Seg Neuts % (Manual) Lymphocytes % (Manual) Seg Neutrophils # Seg Neutrophils # Man Lymphocytes # (Manual) POC ABG pH ABG pH POC ABG pCO2 POC ABG pO2 ABG pO2 ABG HCO3 ABG Base Excess ABG Hemoglobin Oxyhemoglobin Sodium Potassium Chloride Carbon Dioxide BUN Creatinine Glucose POC Glucose 151 H 210 H 201 H Lactic Acid Calcium AST Alkaline Phosphatase Albumin Urine WBC (Auto) 02/10/17 02/10/17 02/10/17 11:21 17:29 23:56 WBC RBC Hgb Hct MCV MCH RDW Plt Count Lymph % (Auto) [place] % (Auto) Eos % (Auto) Seg Neutrophils % Seg Neuts % (Manual) Lymphocytes % (Manual) Seg Neutrophils # Seg Neutrophils # Man Lymphocytes # (Manual) POC ABG pH ABG pH POC ABG pCO2 POC ABG pO2 ABG pO2 ABG HCO3 ABG Base Excess ABG Hemoglobin Oxyhemoglobin Sodium Potassium Chloride Carbon Dioxide BUN Creatinine Glucose POC Glucose 233 H 167 H 191 H Lactic Acid Calcium AST Alkaline Phosphatase Albumin Urine WBC (Auto) 02/11/17 02/11/17 02/11/17 05:24 12:25 17:03 WBC RBC Hgb Hct MCV MCH RDW Plt Count Lymph % (Auto) [place] % (Auto) Eos % (Auto) Seg Neutrophils % Seg Neuts % (Manual) Lymphocytes % (Manual) Seg Neutrophils # Seg Neutrophils # Man Lymphocytes # (Manual) POC ABG pH ABG pH POC ABG pCO2 POC ABG pO2 ABG pO2 ABG HCO3 ABG Base Excess ABG Hemoglobin Oxyhemoglobin Sodium Potassium Chloride Carbon Dioxide BUN Creatinine Glucose POC Glucose 135 H 275 H 172 H Lactic Acid Calcium AST Alkaline Phosphatase Albumin Urine WBC (Auto) 02/11/17 02/12/17 02/12/17 23:59 05:39 11:33 WBC RBC Hgb Hct MCV MCH RDW Plt Count Lymph % (Auto) [place] % (Auto) Eos % (Auto) Seg Neutrophils % Seg Neuts % (Manual) Lymphocytes % (Manual) Seg Neutrophils # Seg Neutrophils # Man Lymphocytes # (Manual) POC ABG pH ABG pH POC ABG pCO2 POC ABG pO2 ABG pO2 ABG HCO3 ABG Base Excess ABG Hemoglobin Oxyhemoglobin Sodium Potassium Chloride Carbon Dioxide BUN Creatinine Glucose POC Glucose 215 H 261 H 217 H Lactic Acid Calcium AST Alkaline Phosphatase Albumin Urine WBC (Auto) 02/12/17 02/13/17 02/13/17 17:55 00:25 06:46 WBC RBC Hgb Hct MCV MCH RDW Plt Count Lymph % (Auto) [place] % (Auto) Eos % (Auto) Seg Neutrophils % Seg Neuts % (Manual) Lymphocytes % (Manual) Seg Neutrophils # Seg Neutrophils # Man Lymphocytes # (Manual) POC ABG pH ABG pH POC ABG pCO2 POC ABG pO2 ABG pO2 ABG HCO3 ABG Base Excess ABG Hemoglobin Oxyhemoglobin Sodium Potassium Chloride Carbon Dioxide BUN Creatinine Glucose POC Glucose 172 H 207 H 219 H Lactic Acid Calcium AST Alkaline Phosphatase Albumin Urine WBC (Auto) 02/13/17 02/13/17 02/14/17 17:12 23:44 05:44 WBC RBC Hgb Hct MCV MCH RDW Plt Count Lymph % (Auto) [place] % (Auto) Eos % (Auto) Seg Neutrophils % Seg Neuts % (Manual) Lymphocytes % (Manual) Seg Neutrophils # Seg Neutrophils # Man Lymphocytes # (Manual) POC ABG pH ABG pH POC ABG pCO2 POC ABG pO2 ABG pO2 ABG HCO3 ABG Base Excess ABG Hemoglobin Oxyhemoglobin Sodium Potassium Chloride Carbon Dioxide BUN Creatinine Glucose POC Glucose 190 H 256 H 184 H Lactic Acid Calcium AST Alkaline Phosphatase Albumin Urine WBC (Auto)
--- NOTE | 2017-02-14 19:46 | Progress Note ---
Assessment and Plan Assessment and plan: 51 yo male with DM, HTN, CKD, alcohol abuse and history of delirium tremens, found down and unresponsive; upon EMS arrival, serum glucose found to be 21 and insulin syringes around; unable to protect airway, so intubated; metabolic abnormalities corrected, but he remained unresponsive. surgical services assistant unable to locate any family. Ethics committee decided to make him DO NOT RESUSCITATE, but was not willing to sign for withdrawal of ventilator. Further care felt to be futile and would only prolong potential suffering without affecting ultimate outcome. Currently [facility]. Awaiting guardianship from the state. 1. Acute hypoxic respiratory failure On ventilator Trach not warranted given his extremely poor prognosis 2. Hypoglycemic brain injury/Metabolic encephalopathy 3. Vegetative state 4. Hypothyroidism Free T4 normal, so myxedema, less likely 5. SIRS 6. Poor prognosis. Made DO NOT RESUSCITATE and [facility] by ethics committee. Awaiting state guardianship History Interval history: comatose, unresponsive no events Hospitalist Physical - Constitutional Vitals: Temp Pulse Resp BP Pulse Ox 98.5 F 65 14 131/79 100 02/14/17 16:00 02/14/17 19:05 02/14/17 19:00 02/14/17 19:05 02/14/17 19:05 General appearance: Present: no acute distress, other (comatose, unresponsive) - Neck Neck: Absent: enlarged thyroid, masses or JVD, carotid bruits - Respiratory Respiratory effort: other (on vent) Respiratory: bilateral: CTA, negative: rhonchi, wheezing - Cardiovascular Rhythm: regular Heart Sounds: Present: S1 & S2. Absent: systolic murmur - Extremities Extremities: no ischemia - Abdominal General gastrointestinal: soft, non-distended, normal bowel sounds - Neurologic Neurologic: other (flaccid) Results - Labs CBC & Chem 7: 02/09/17 07:24 02/09/17 07:24 Labs: Laboratory Last Values WBC 14.7 K/mm3 (4.5-11.0) H 02/09/17 07:24 RBC 3.39 M/mm3 (3.65-5.03) L 02/09/17 07:24 Hgb 8.9 gm/dl (11.8-15.2) L 02/09/17 07:24 Hct 26.4 % (35.5-45.6) L 02/09/17 07:24 MCV 78 fl (84-94) L 02/09/17 07:24 MCH 26 pg (28-32) L 02/09/17 07:24 MCHC 34 % (32-34) 02/09/17 07:24 RDW 18.4 % (13.2-15.2) H 02/09/17 07:24 Plt Count 670 K/mm3 (140-440) H 02/09/17 07:24 Lymph % (Auto) 11.8 % (13.4-35.0) L 02/09/17 07:24 [place] % (Auto) 4.7 % (0.0-7.3) 02/09/17 07:24 Eos % (Auto) 1.9 % (0.0-4.3) 02/09/17 07:24 Baso % (Auto) 0.4 % (0.0-1.8) 02/09/17 07:24 Lymph # 1.7 K/mm3 (1.2-5.4) 02/09/17 07:24 [place] # 0.7 K/mm3 (0.0-0.8) 02/09/17 07:24 Eos # 0.3 K/mm3 (0.0-0.4) 02/09/17 07:24 Baso # 0.1 K/mm3 (0.0-0.1) 02/09/17 07:24 Add Manual Diff Complete 01/10/17 04:30 Total Counted 100 01/10/17 04:30 Seg Neutrophils % 81.2 % (40.0-70.0) H 02/09/17 07:24 Seg Neuts % (Manual) 88.0 % (40.0-70.0) H 01/10/17 04:30 Band Neutrophils % 7.0 % 01/10/17 04:30 Lymphocytes % (Manual) 4.0 % (13.4-35.0) L 01/10/17 04:30 Reactive Lymphs % (Man) 0 % 01/10/17 04:30 Monocytes % (Manual) 1.0 % (0.0-7.3) 01/10/17 04:30 Eosinophils % (Manual) 0 % (0.0-4.3) 01/10/17 04:30 Basophils % (Manual) 0 % (0.0-1.8) 01/10/17 04:30 Metamyelocytes % 0 % 01/10/17 04:30 Myelocytes % 0 % 01/10/17 04:30 Promyelocytes % 0 % 01/10/17 04:30 Blast Cells % 0 % 01/10/17 04:30 Nucleated RBC % Not Reportable 01/10/17 04:30 Seg Neutrophils # 11.9 K/mm3 (1.8-7.7) H 02/09/17 07:24 Seg Neutrophils # Man 21.2 K/mm3 (1.8-7.7) H 01/10/17 04:30 Band Neutrophils # 1.7 K/mm3 01/10/17 04:30 Lymphocytes # (Manual) 1.0 K/mm3 (1.2-5.4) L 01/10/17 04:30 Abs React Lymphs (Man) 0.0 K/mm3 01/10/17 04:30 Monocytes # (Manual) 0.2 K/mm3 (0.0-0.8) 01/10/17 04:30 Eosinophils # (Manual) 0.0 K/mm3 (0.0-0.4) 01/10/17 04:30 Basophils # (Manual) 0.0 K/mm3 (0.0-0.1) 01/10/17 04:30 Metamyelocytes # 0.0 K/mm3 01/10/17 04:30 Myelocytes # 0.0 K/mm3 01/10/17 04:30 Promyelocytes # 0.0 K/mm3 01/10/17 04:30 Blast Cells # 0.0 K/mm3 01/10/17 04:30 WBC Morphology Not Reportable 01/10/17 04:30 Hypersegmented Neuts Not Reportable 01/10/17 04:30 Hyposegmented Neuts Not Reportable 01/10/17 04:30 Hypogranular Neuts Not Reportable 01/10/17 04:30 Smudge Cells Not Reportable 01/10/17 04:30 Toxic Granulation Not Reportable 01/10/17 04:30 Toxic Vacuolation Not Reportable 01/10/17 04:30 Dohle Bodies Not Reportable 01/10/17 04:30 Pelger-Huet Anomaly Not Reportable 01/10/17 04:30 [place] Rods Not Reportable 01/10/17 04:30 Platelet Estimate Consistent w auto 01/10/17 04:30 Clumped Platelets Not Reportable 01/10/17 04:30 Plt Clumps, EDTA Not Reportable 01/10/17 04:30 Large Platelets Not Reportable 01/10/17 04:30 Giant Platelets Not Reportable 01/10/17 04:30 Platelet Satelliting Not Reportable 01/10/17 04:30 Plt Morphology Comment Not Reportable 01/10/17 04:30 RBC Morphology Not Reportable 01/10/17 04:30 Dimorphic RBCs Not Reportable 01/10/17 04:30 Polychromasia Not Reportable 01/10/17 04:30 Hypochromasia 1+ 01/10/17 04:30 Poikilocytosis Not Reportable 01/10/17 04:30 Anisocytosis Not Reportable 01/10/17 04:30 Microcytosis Not Reportable 01/10/17 04:30 Macrocytosis Not Reportable 01/10/17 04:30 Spherocytes Not Reportable 01/10/17 04:30 Pappenheimer Bodies Not Reportable 01/10/17 04:30 Sickle Cells Not Reportable 01/10/17 04:30 Target Cells Not Reportable 01/10/17 04:30 Tear Drop Cells Not Reportable 01/10/17 04:30 Ovalocytes Not Reportable 01/10/17 04:30 Helmet Cells Not Reportable 01/10/17 04:30 [place] Bodies Not Reportable 01/10/17 04:30 [place] Rings Not Reportable 01/10/17 04:30 [place] Cells Not Reportable 01/10/17 04:30 Bite Cells Not Reportable 01/10/17 04:30 Crenated Cell Not Reportable 01/10/17 04:30 Elliptocytes Not Reportable 01/10/17 04:30 Acanthocytes (Spur) Not Reportable 01/10/17 04:30 Rouleaux Not Reportable 01/10/17 04:30 Hemoglobin C Crystals Not Reportable 01/10/17 04:30 Schistocytes Not Reportable 01/10/17 04:30 Malaria parasites Not Reportable 01/10/17 04:30 [place] Bodies Not Reportable 01/10/17 04:30 Hem Pathologist Commnt No 01/10/17 04:30 PT 14.1 Sec. (12.2-14.9) 01/17/17 04:10 INR 1.04 (0.87-1.13) 01/17/17 04:10 APTT 36.6 Sec. (24.2-36.6) 01/17/17 04:10 POC ABG pH 7.442 (7.35-7.45) 01/31/17 18:55 ABG pH 7.420 pH Units (7.350-7.450) 01/17/17 04:35 POC ABG pCO2 32.8 (35-45) L 01/31/17 18:55 ABG pCO2 34.5 mm Hg 01/17/17 04:35 POC ABG pO2 82 (80-105) 01/31/17 18:55 ABG pO2 160.3 mm Hg (80.0-90.0) H 01/17/17 04:35 POC ABG HCO3 22.4 01/31/17 18:55 ABG HCO3 21.9 mmol/L (20.0-26.0) 01/17/17 04:35 POC ABG Total CO2 23 01/31/17 18:55 POC ABG O2 Sat 97 01/31/17 18:55 ABG O2 Saturation 99.0 % (95.0-99.0) 01/17/17 04:35 ABG O2 Content 11.1 (0.0-44) 01/17/17 04:35 POC ABG Base Excess -2 01/31/17 18:55 ABG Base Excess -2.3 mmol/L (-2.0-3.0) L 01/17/17 04:35 ABG Hemoglobin 7.9 gm/dl (14.0-18.0) L 01/17/17 04:35 ABG Carboxyhemoglobin 1.5 % (0.0-5.0) 01/17/17 04:35 ABG Methemoglobin 0.5 % (0.0-1.5) 01/17/17 04:35 VBG pH 7.284 (7.320-7.420) L 01/09/17 10:16 Oxyhemoglobin 97.1 % (95.0-99.0) 01/17/17 04:35 FiO2 25 % 01/31/17 18:55 Sodium 137 mmol/L (137-145) 02/09/17 07:24 Potassium 4.9 mmol/L (3.6-5.0) 02/09/17 07:24 Chloride 95.5 mmol/L (98-107) L 02/09/17 07:24 Carbon Dioxide 29 mmol/L (22-30) 02/09/17 07:24 Anion Gap 17 mmol/L 02/09/17 07:24 BUN 52 mg/dL (9-20) H 02/09/17 07:24 Creatinine 0.8 mg/dL (0.8-1.5) 02/09/17 07:24 Estimated GFR > 60 ml/min 02/09/17 07:24 BUN/Creatinine Ratio 65 % 02/09/17 07:24 Glucose 277 mg/dL (75-100) H 02/09/17 07:24 POC Glucose 184 (70-105) H 02/14/17 05:44 Lactic Acid 0.80 mmol/L (0.7-2.0) 01/30/17 11:49 Calcium 9.4 mg/dL (8.4-10.2) 02/09/17 07:24 Phosphorus 3.60 mg/dL (2.5-4.5) 01/22/17 04:00 Magnesium 2.10 mg/dL (1.7-2.3) 01/22/17 04:00 Total Bilirubin 0.30 mg/dL (0.1-1.2) 01/22/17 04:00 AST 44 units/L (5-40) H 01/22/17 04:00 ALT 23 units/L (7-56) 01/22/17 04:00 Alkaline Phosphatase 379 units/L (35-129) H 01/22/17 04:00 Ammonia 35.0 umol/L (25-60) 01/09/17 10:16 Total Creatine Kinase 135 units/L (55-170) 01/09/17 10:16 CK-MB (CK-2) 7.1 ng/mL (0.0-4.0) H 01/09/17 10:16 CK-MB (CK-2) Rel Index 5.2 (0-4) H 01/09/17 10:16 Troponin T < 0.010 ng/mL (0.00-0.029) 01/09/17 10:16 NT-Pro-B Natriuret Pep 602.9 pg/mL (0-900) 01/09/17 10:16 Total Protein 7.9 g/dL (6.3-8.2) 01/22/17 04:00 Albumin 2.7 g/dL (3.9-5) L 01/22/17 04:00 Albumin/Globulin Ratio 0.5 % 01/22/17 04:00 TSH 52.800 mlU/mL (0.270-4.200) H 01/09/17 10:16 Free T4 0.78 ng/dL (0.76-1.46) 01/09/17 10:16 Total Cortisol 54.8 mcg/dL () 01/09/17 16:19 Urine Color Yellow (Yellow) 01/28/17 17:52 Urine Turbidity Clear (Clear) 01/28/17 17:52 Urine pH 6.0 (5.0-7.0) 01/28/17 17:52 Ur Specific [place] 1.016 (1.003-1.030) 01/28/17 17:52 Urine Protein 100 mg/dl mg/dL (Negative) 01/28/17 17:52 Urine Glucose (UA) >=500 mg/dL (Negative) 01/28/17 17:52 Urine Ketones Neg mg/dL (Negative) 01/28/17 17:52 Urine Blood Sm (Negative) 01/28/17 17:52 Urine Nitrite Neg (Negative) 01/28/17 17:52 Urine Bilirubin Neg (Negative) 01/28/17 17:52 Urine Urobilinogen < 2.0 mg/dL (<2.0) 01/28/17 17:52 Ur Leukocyte Esterase Lg (Negative) 01/28/17 17:52 Urine WBC (Auto) > 182.0 /HPF (0.0-6.0) H 01/28/17 17:52 Urine RBC (Auto) 113.0 /HPF (0.0-6.0) 01/28/17 17:52 Urine Bacteria (Auto) 2+ /HPF (Negative) 01/28/17 17:52 Urine WBC Clumps 3+ /HPF 01/28/17 17:52 Urine Mucus Few /HPF 01/14/17 14:07 Urine Yeast (Bud[place]) 3+ /HPF 01/14/17 14:07 Salicylates < 0.3 mg/dL (2.8-20.0) L 01/09/17 10:16 Urine Opiates Screen Presumptive negative 01/09/17 10:23 Urine Methadone Screen Presumptive negative 01/09/17 10:23 Acetaminophen < 15.0 ug/mL (10.0-30.0) 01/09/17 10:16 Ur Barbiturates Screen Presumptive negative 01/09/17 10:23 Ur Phencyclidine Scrn Presumptive negative 01/09/17 10:23 Ur Amphetamines Screen Presumptive negative 01/09/17 10:23 U Benzodiazepines Scrn Presumptive negative 01/09/17 10:23 Urine Cocaine Screen Presumptive negative 01/09/17 10:23 U Marijuana (THC) Screen Presumptive negative 01/09/17 10:23 Drugs of Abuse Note Disclamer 01/09/17 10:23 Plasma/Serum Alcohol < 0.01 gm% (0-0.07) 01/09/17 10:16
[2017-02-15] MEDS: NOVOLOG SUB-Q SCH ×4 (00:33→17:38)
[2017-02-15] MEDS: SYNTHROID PO SCH (07:34)
[2017-02-15] MEDS: PEPCID PO SCH ×2 (09:39→21:50)
[2017-02-15] MEDS: NORMODYNE PO SCH ×2 (09:39→21:49)
[2017-02-15] MEDS: LEVEMIR (NF) SUB-Q SCH (09:39)
[2017-02-15] MEDS: HEPARIN SUB-Q SCH ×2 (09:39→22:16)
--- NOTE | 2017-02-15 10:53 | Progress Note ---
Assessment and Plan 51 y/o male found down, concern for sepsis and now encephalopathic requiring mechanical ventilation. No New recs for today. 1. continue supportive care 2. Spoke with Risk and the [employer] has requested that guardianship be persued. Dilemma is, once patient has been awarded guardianship, who will take him. Morally and ethically, given the prognosis provided by neurology, I do not feel placing a tracheostomy is the right thing to do. 3. Added imodium for diarrhea, improved. CCT 31 minutes. Subjective Date of service: 02/15/17 Principal diagnosis: Acute respiratory failure,encephalopathy Interval history: No acute events. Mental status is unchanged. Objective Vital Signs - 12hr 02/14/17 02/14/17 02/14/17 22:59 23:01 23:19 Temperature 98.8 F Pulse Rate 63 64 Respiratory 13 Rate Blood Pressure 148/74 148/74 O2 Sat by Pulse 100 100 Oximetry 02/15/17 02/15/17 02/15/17 00:00 01:01 02:00 Temperature Pulse Rate 63 64 62 Respiratory 14 13 14 Rate Blood Pressure 138/79 138/79 141/79 O2 Sat by Pulse 100 100 100 Oximetry 02/15/17 02/15/17 02/15/17 03:01 03:11 04:00 Temperature 98.9 F Pulse Rate 64 69 Respiratory 13 14 Rate Blood Pressure 141/79 143/81 O2 Sat by Pulse 100 100 Oximetry 02/15/17 02/15/17 02/15/17 05:01 06:00 07:01 Temperature Pulse Rate 63 63 63 Respiratory 14 13 16 Rate Blood Pressure 143/81 132/78 132/78 O2 Sat by Pulse 100 100 100 Oximetry 02/15/17 02/15/17 02/15/17 07:58 08:00 09:39 Temperature 98.5 F Pulse Rate 63 70 Respiratory Rate Blood Pressure 151/82 151/82 O2 Sat by Pulse 100 Oximetry Constitutional: comatose, other (orally intubated, on vent) Eyes: non-icteric ENT: oropharynx moist Neck: supple Effort: normal Ascultation: Bilateral: clear, diminished breath sounds Cardiovascular: regular rate and rhythm (no mrg) Gastrointestinal: normoactive bowel sounds, soft, non-tender, non-distended Integumentary: normal Extremities: no cyanosis, no edema, pink and warm Neurologic: other (unresponsive, flaccid extremities) Psychiatric: other (unable to obtain) CBC and BMP: 02/09/17 07:24 02/09/17 07:24 ABG, PT/INR, D-dimer: ABG POC ABG pH 7.442 (7.35-7.45) 01/31/17 18:55 ABG pH 7.420 pH Units (7.350-7.450) 01/17/17 04:35 POC ABG pCO2 32.8 (35-45) L 01/31/17 18:55 ABG pCO2 34.5 mm Hg 01/17/17 04:35 POC ABG pO2 82 (80-105) 01/31/17 18:55 ABG pO2 160.3 mm Hg (80.0-90.0) H 01/17/17 04:35 POC ABG HCO3 22.4 01/31/17 18:55 POC ABG Total CO2 23 01/31/17 18:55 POC ABG O2 Sat 97 01/31/17 18:55 ABG O2 Saturation 99.0 % (95.0-99.0) 01/17/17 04:35 PT/INR, D-dimer PT 14.1 Sec. (12.2-14.9) 01/17/17 04:10 INR 1.04 (0.87-1.13) 01/17/17 04:10 Abnormal lab findings: Abnormal Labs 01/09/17 01/09/17 01/09/17 12:49 13:13 14:21 WBC RBC Hgb Hct MCV MCH RDW Plt Count Lymph % (Auto) Grady % (Auto) Eos % (Auto) Seg Neutrophils % Seg Neuts % (Manual) Lymphocytes % (Manual) Seg Neutrophils # Seg Neutrophils # Man Lymphocytes # (Manual) POC ABG pH ABG pH POC ABG pCO2 POC ABG pO2 ABG pO2 ABG HCO3 ABG Base Excess ABG Hemoglobin Oxyhemoglobin Sodium Potassium Chloride Carbon Dioxide BUN Creatinine Glucose POC Glucose < 40 L 128 H 65 L Lactic Acid Calcium AST Alkaline Phosphatase Albumin Urine WBC (Auto) 01/09/17 01/09/17 01/09/17 15:09 16:28 17:14 WBC RBC Hgb Hct MCV MCH RDW Plt Count Lymph % (Auto) Grady % (Auto) Eos % (Auto) Seg Neutrophils % Seg Neuts % (Manual) Lymphocytes % (Manual) Seg Neutrophils # Seg Neutrophils # Man Lymphocytes # (Manual) POC ABG pH ABG pH POC ABG pCO2 POC ABG pO2 ABG pO2 ABG HCO3 ABG Base Excess ABG Hemoglobin Oxyhemoglobin Sodium Potassium Chloride Carbon Dioxide BUN Creatinine Glucose POC Glucose 120 H 44 L 112 H Lactic Acid Calcium AST Alkaline Phosphatase Albumin Urine WBC (Auto) 01/10/17 01/10/17 01/10/17 04:30 04:30 05:41 WBC 24.1 H RBC 3.38 L Hgb 8.5 L Hct 26.0 L MCV 77 L MCH 25 L RDW 17.9 H Plt Count 474 H Lymph % (Auto) Grady % (Auto) Eos % (Auto) Seg Neutrophils % Seg Neuts % (Manual) 88.0 H Lymphocytes % (Manual) 4.0 L Seg Neutrophils # Seg Neutrophils # Man 21.2 H Lymphocytes # (Manual) 1.0 L POC ABG pH ABG pH POC ABG pCO2 POC ABG pO2 ABG pO2 ABG HCO3 ABG Base Excess ABG Hemoglobin Oxyhemoglobin Sodium Potassium Chloride Carbon Dioxide 17 L BUN 27 H Creatinine Glucose POC Glucose 68 L Lactic Acid Calcium 7.5 L AST Alkaline Phosphatase Albumin Urine WBC (Auto) 01/10/17 01/10/17 01/10/17 05:45 07:47 10:50 WBC RBC Hgb Hct MCV MCH RDW Plt Count Lymph % (Auto) Grady % (Auto) Eos % (Auto) Seg Neutrophils % Seg Neuts % (Manual) Lymphocytes % (Manual) Seg Neutrophils # Seg Neutrophils # Man Lymphocytes # (Manual) POC ABG pH ABG pH POC ABG pCO2 26.6 L POC ABG pO2 207 H ABG pO2 ABG HCO3 ABG Base Excess ABG Hemoglobin Oxyhemoglobin Sodium Potassium Chloride Carbon Dioxide BUN Creatinine Glucose POC Glucose 148 H 165 H Lactic Acid Calcium AST Alkaline Phosphatase Albumin Urine WBC (Auto) 01/10/17 01/10/17 01/10/17 13:41 20:20 21:39 WBC RBC Hgb Hct MCV MCH RDW Plt Count Lymph % (Auto) Grady % (Auto) Eos % (Auto) Seg Neutrophils % Seg Neuts % (Manual) Lymphocytes % (Manual) Seg Neutrophils # Seg Neutrophils # Man Lymphocytes # (Manual) POC ABG pH ABG pH POC ABG pCO2 POC ABG pO2 ABG pO2 ABG HCO3 ABG Base Excess ABG Hemoglobin Oxyhemoglobin Sodium Potassium Chloride Carbon Dioxide BUN Creatinine Glucose POC Glucose 114 H 150 H 175 H Lactic Acid Calcium AST Alkaline Phosphatase Albumin Urine WBC (Auto) 01/10/17 01/11/17 01/11/17 23:24 00:19 04:06 WBC RBC Hgb Hct MCV MCH RDW Plt Count Lymph % (Auto) Grady % (Auto) Eos % (Auto) Seg Neutrophils % Seg Neuts % (Manual) Lymphocytes % (Manual) Seg Neutrophils # Seg Neutrophils # Man Lymphocytes # (Manual) POC ABG pH 7.463 H ABG pH POC ABG pCO2 26.2 L POC ABG pO2 185 H ABG pO2 ABG HCO3 ABG Base Excess ABG Hemoglobin Oxyhemoglobin Sodium Potassium Chloride Carbon Dioxide BUN Creatinine Glucose POC Glucose 155 H 163 H Lactic Acid Calcium AST Alkaline Phosphatase Albumin Urine WBC (Auto) 01/11/17 01/11/17 01/11/17 05:20 05:20 06:21 WBC 15.2 H RBC 3.40 L Hgb 8.9 L Hct 26.3 L MCV 78 L MCH 26 L RDW 18.6 H Plt Count 462 H Lymph % (Auto) 13.2 L Grady % (Auto) Eos % (Auto) Seg Neutrophils % 80.8 H Seg Neuts % (Manual) Lymphocytes % (Manual) Seg Neutrophils # 12.3 H Seg Neutrophils # Man Lymphocytes # (Manual) POC ABG pH ABG pH POC ABG pCO2 POC ABG pO2 ABG pO2 ABG HCO3 ABG Base Excess ABG Hemoglobin Oxyhemoglobin Sodium Potassium 3.4 L Chloride 111.5 H Carbon Dioxide 17 L BUN Creatinine Glucose 147 H POC Glucose 139 H Lactic Acid Calcium 8.0 L AST Alkaline Phosphatase Albumin Urine WBC (Auto) 01/11/17 01/11/17 01/11/17 07:57 11:46 16:50 WBC RBC Hgb Hct MCV MCH RDW Plt Count Lymph % (Auto) Grady % (Auto) Eos % (Auto) Seg Neutrophils % Seg Neuts % (Manual) Lymphocytes % (Manual) Seg Neutrophils # Seg Neutrophils # Man Lymphocytes # (Manual) POC ABG pH ABG pH POC ABG pCO2 POC ABG pO2 ABG pO2 ABG HCO3 ABG Base Excess ABG Hemoglobin Oxyhemoglobin Sodium Potassium Chloride Carbon Dioxide BUN Creatinine Glucose POC Glucose 188 H 199 H 235 H Lactic Acid Calcium AST Alkaline Phosphatase Albumin Urine WBC (Auto) 01/11/17 01/12/17 01/12/17 23:15 05:02 06:56 WBC RBC Hgb Hct MCV MCH RDW Plt Count Lymph % (Auto) Grady % (Auto) Eos % (Auto) Seg Neutrophils % Seg Neuts % (Manual) Lymphocytes % (Manual) Seg Neutrophils # Seg Neutrophils # Man Lymphocytes # (Manual) POC ABG pH ABG pH POC ABG pCO2 28.0 L POC ABG pO2 178 H ABG pO2 ABG HCO3 ABG Base Excess ABG Hemoglobin Oxyhemoglobin Sodium Potassium Chloride Carbon Dioxide BUN Creatinine Glucose POC Glucose 155 H 119 H Lactic Acid Calcium AST Alkaline Phosphatase Albumin Urine WBC (Auto) 01/12/17 01/13/17 01/13/17 14:50 03:37 03:37 WBC RBC 3.61 L Hgb 9.3 L Hct 28.0 L MCV 78 L MCH 26 L RDW 18.2 H Plt Count Lymph % (Auto) Grady % (Auto) Eos % (Auto) Seg Neutrophils % Seg Neuts % (Manual) Lymphocytes % (Manual) Seg Neutrophils # Seg Neutrophils # Man Lymphocytes # (Manual) POC ABG pH ABG pH POC ABG pCO2 POC ABG pO2 ABG pO2 ABG HCO3 ABG Base Excess ABG Hemoglobin Oxyhemoglobin Sodium Potassium Chloride 112.4 H Carbon Dioxide 19 L BUN Creatinine Glucose 118 H POC Glucose 164 H Lactic Acid Calcium 8.0 L AST Alkaline Phosphatase Albumin Urine WBC (Auto) 01/13/17 01/13/17 01/13/17 04:26 06:15 11:50 WBC RBC Hgb Hct MCV MCH RDW Plt Count Lymph % (Auto) Grady % (Auto) Eos % (Auto) Seg Neutrophils % Seg Neuts % (Manual) Lymphocytes % (Manual) Seg Neutrophils # Seg Neutrophils # Man Lymphocytes # (Manual) POC ABG pH 7.485 H ABG pH POC ABG pCO2 25.4 L POC ABG pO2 73 L ABG pO2 ABG HCO3 ABG Base Excess ABG Hemoglobin Oxyhemoglobin Sodium Potassium Chloride Carbon Dioxide BUN Creatinine Glucose POC Glucose 116 H 171 H Lactic Acid Calcium AST Alkaline Phosphatase Albumin Urine WBC (Auto) 01/13/17 01/14/17 01/14/17 17:31 00:02 04:50 WBC RBC 3.32 L Hgb 8.5 L Hct 26.1 L MCV 79 L MCH 26 L RDW 18.2 H Plt Count Lymph % (Auto) Grady % (Auto) 9.0 H Eos % (Auto) Seg Neutrophils % Seg Neuts % (Manual) Lymphocytes % (Manual) Seg Neutrophils # Seg Neutrophils # Man Lymphocytes # (Manual) POC ABG pH ABG pH POC ABG pCO2 POC ABG pO2 ABG pO2 ABG HCO3 ABG Base Excess ABG Hemoglobin Oxyhemoglobin Sodium Potassium Chloride Carbon Dioxide BUN Creatinine Glucose POC Glucose 203 H 157 H Lactic Acid Calcium AST Alkaline Phosphatase Albumin Urine WBC (Auto) 01/14/17 01/14/17 01/14/17 04:50 05:10 11:27 WBC RBC Hgb Hct MCV MCH RDW Plt Count Lymph % (Auto) Grady % (Auto) Eos % (Auto) Seg Neutrophils % Seg Neuts % (Manual) Lymphocytes % (Manual) Seg Neutrophils # Seg Neutrophils # Man Lymphocytes # (Manual) POC ABG pH ABG pH POC ABG pCO2 POC ABG pO2 ABG pO2 ABG HCO3 ABG Base Excess ABG Hemoglobin Oxyhemoglobin Sodium Potassium Chloride 112.5 H Carbon Dioxide BUN Creatinine Glucose 149 H POC Glucose 176 H 147 H Lactic Acid Calcium 8.1 L AST Alkaline Phosphatase Albumin Urine WBC (Auto) 01/14/17 01/14/17 01/15/17 14:07 16:52 00:04 WBC RBC Hgb Hct MCV MCH RDW Plt Count Lymph % (Auto) Grady % (Auto) Eos % (Auto) Seg Neutrophils % Seg Neuts % (Manual) Lymphocytes % (Manual) Seg Neutrophils # Seg Neutrophils # Man Lymphocytes # (Manual) POC ABG pH ABG pH POC ABG pCO2 POC ABG pO2 ABG pO2 ABG HCO3 ABG Base Excess ABG Hemoglobin Oxyhemoglobin Sodium Potassium Chloride Carbon Dioxide BUN Creatinine Glucose POC Glucose 131 H 193 H Lactic Acid Calcium AST Alkaline Phosphatase Albumin Urine WBC (Auto) 53.0 H 01/15/17 01/15/17 01/15/17 05:26 11:49 17:47 WBC RBC Hgb Hct MCV MCH RDW Plt Count Lymph % (Auto) Grady % (Auto) Eos % (Auto) Seg Neutrophils % Seg Neuts % (Manual) Lymphocytes % (Manual) Seg Neutrophils # Seg Neutrophils # Man Lymphocytes # (Manual) POC ABG pH ABG pH POC ABG pCO2 POC ABG pO2 ABG pO2 ABG HCO3 ABG Base Excess ABG Hemoglobin Oxyhemoglobin Sodium Potassium Chloride Carbon Dioxide BUN Creatinine Glucose POC Glucose 215 H 121 H 211 H Lactic Acid Calcium AST Alkaline Phosphatase Albumin Urine WBC (Auto) 01/15/17 01/16/17 01/16/17 21:33 04:30 05:28 WBC RBC Hgb Hct MCV MCH RDW Plt Count Lymph % (Auto) Grady % (Auto) Eos % (Auto) Seg Neutrophils % Seg Neuts % (Manual) Lymphocytes % (Manual) Seg Neutrophils # Seg Neutrophils # Man Lymphocytes # (Manual) POC ABG pH ABG pH 7.457 H POC ABG pCO2 POC ABG pO2 ABG pO2 55.1 L ABG HCO3 19.4 L ABG Base Excess -4.0 L ABG Hemoglobin 6.8 L Oxyhemoglobin 94.9 L Sodium Potassium Chloride Carbon Dioxide BUN Creatinine Glucose POC Glucose 275 H 271 H Lactic Acid Calcium AST Alkaline Phosphatase Albumin Urine WBC (Auto) 01/16/17 01/16/17 01/17/17 13:45 21:39 04:10 WBC 4.4 L RBC 2.98 L Hgb 7.7 L Hct 23.3 L MCV 78 L MCH 26 L RDW 18.1 H Plt Count Lymph % (Auto) Grady % (Auto) Eos % (Auto) Seg Neutrophils % Seg Neuts % (Manual) Lymphocytes % (Manual) Seg Neutrophils # Seg Neutrophils # Man Lymphocytes # (Manual) POC ABG pH ABG pH POC ABG pCO2 POC ABG pO2 ABG pO2 ABG HCO3 ABG Base Excess ABG Hemoglobin Oxyhemoglobin Sodium Potassium Chloride Carbon Dioxide BUN Creatinine Glucose POC Glucose 236 H 258 H Lactic Acid Calcium AST Alkaline Phosphatase Albumin Urine WBC (Auto) 01/17/17 01/17/17 01/17/17 04:10 04:35 12:23 WBC RBC Hgb Hct MCV MCH RDW Plt Count Lymph % (Auto) Grady % (Auto) Eos % (Auto) Seg Neutrophils % Seg Neuts % (Manual) Lymphocytes % (Manual) Seg Neutrophils # Seg Neutrophils # Man Lymphocytes # (Manual) POC ABG pH ABG pH POC ABG pCO2 POC ABG pO2 ABG pO2 160.3 H ABG HCO3 ABG Base Excess -2.3 L ABG Hemoglobin 7.9 L Oxyhemoglobin Sodium Potassium 3.3 L Chloride 108.7 H Carbon Dioxide 20 L BUN 8 L Creatinine Glucose 202 H POC Glucose 321 H Lactic Acid Calcium 7.6 L AST Alkaline Phosphatase Albumin Urine WBC (Auto) 01/17/17 01/18/17 01/18/17 16:01 05:07 12:09 WBC RBC Hgb Hct MCV MCH RDW Plt Count Lymph % (Auto) Grady % (Auto) Eos % (Auto) Seg Neutrophils % Seg Neuts % (Manual) Lymphocytes % (Manual) Seg Neutrophils # Seg Neutrophils # Man Lymphocytes # (Manual) POC ABG pH ABG pH POC ABG pCO2 POC ABG pO2 ABG pO2 ABG HCO3 ABG Base Excess ABG Hemoglobin Oxyhemoglobin Sodium Potassium Chloride Carbon Dioxide BUN Creatinine Glucose POC Glucose 239 H 155 H 203 H Lactic Acid Calcium AST Alkaline Phosphatase Albumin Urine WBC (Auto) 01/18/17 01/18/17 01/19/17 17:54 23:43 04:28 WBC RBC Hgb Hct MCV MCH RDW Plt Count Lymph % (Auto) Grady % (Auto) Eos % (Auto) Seg Neutrophils % Seg Neuts % (Manual) Lymphocytes % (Manual) Seg Neutrophils # Seg Neutrophils # Man Lymphocytes # (Manual) POC ABG pH ABG pH POC ABG pCO2 POC ABG pO2 ABG pO2 ABG HCO3 ABG Base Excess ABG Hemoglobin Oxyhemoglobin Sodium Potassium Chloride Carbon Dioxide BUN Creatinine Glucose POC Glucose 132 H 125 H 182 H Lactic Acid Calcium AST Alkaline Phosphatase Albumin Urine WBC (Auto) 01/19/17 01/19/17 01/20/17 12:11 17:23 00:12 WBC RBC Hgb Hct MCV MCH RDW Plt Count Lymph % (Auto) Grady % (Auto) Eos % (Auto) Seg Neutrophils % Seg Neuts % (Manual) Lymphocytes % (Manual) Seg Neutrophils # Seg Neutrophils # Man Lymphocytes # (Manual) POC ABG pH ABG pH POC ABG pCO2 POC ABG pO2 ABG pO2 ABG HCO3 ABG Base Excess ABG Hemoglobin Oxyhemoglobin Sodium Potassium Chloride Carbon Dioxide BUN Creatinine Glucose POC Glucose 153 H 66 L 139 H Lactic Acid Calcium AST Alkaline Phosphatase Albumin Urine WBC (Auto) 01/20/17 01/20/17 01/20/17 05:44 11:48 17:42 WBC RBC Hgb Hct MCV MCH RDW Plt Count Lymph % (Auto) Grady % (Auto) Eos % (Auto) Seg Neutrophils % Seg Neuts % (Manual) Lymphocytes % (Manual) Seg Neutrophils # Seg Neutrophils # Man Lymphocytes # (Manual) POC ABG pH ABG pH POC ABG pCO2 POC ABG pO2 ABG pO2 ABG HCO3 ABG Base Excess ABG Hemoglobin Oxyhemoglobin Sodium Potassium Chloride Carbon Dioxide BUN Creatinine Glucose POC Glucose 176 H 218 H 132 H Lactic Acid Calcium AST Alkaline Phosphatase Albumin Urine WBC (Auto) 01/20/17 01/21/17 01/21/17 23:43 05:34 11:17 WBC RBC Hgb Hct MCV MCH RDW Plt Count Lymph % (Auto) Grady % (Auto) Eos % (Auto) Seg Neutrophils % Seg Neuts % (Manual) Lymphocytes % (Manual) Seg Neutrophils # Seg Neutrophils # Man Lymphocytes # (Manual) POC ABG pH ABG pH POC ABG pCO2 POC ABG pO2 ABG pO2 ABG HCO3 ABG Base Excess ABG Hemoglobin Oxyhemoglobin Sodium Potassium Chloride Carbon Dioxide BUN Creatinine Glucose POC Glucose 178 H 106 H 213 H Lactic Acid Calcium AST Alkaline Phosphatase Albumin Urine WBC (Auto) 01/21/17 01/22/17 01/22/17 23:37 04:00 04:00 WBC RBC 3.26 L Hgb 8.3 L Hct 25.5 L MCV 78 L MCH 25 L RDW 17.9 H Plt Count Lymph % (Auto) Grady % (Auto) 7.9 H Eos % (Auto) 6.2 H Seg Neutrophils % Seg Neuts % (Manual) Lymphocytes % (Manual) Seg Neutrophils # Seg Neutrophils # Man Lymphocytes # (Manual) POC ABG pH ABG pH POC ABG pCO2 POC ABG pO2 ABG pO2 ABG HCO3 ABG Base Excess ABG Hemoglobin Oxyhemoglobin Sodium Potassium Chloride 95.5 L Carbon Dioxide 31 H D BUN Creatinine Glucose 134 H POC Glucose 140 H Lactic Acid Calcium AST 44 H Alkaline Phosphatase 379 H Albumin 2.7 L Urine WBC (Auto) 01/22/17 01/22/17 01/22/17 04:58 12:12 18:12 WBC RBC Hgb Hct MCV MCH RDW Plt Count Lymph % (Auto) Grady % (Auto) Eos % (Auto) Seg Neutrophils % Seg Neuts % (Manual) Lymphocytes % (Manual) Seg Neutrophils # Seg Neutrophils # Man Lymphocytes # (Manual) POC ABG pH ABG pH POC ABG pCO2 POC ABG pO2 ABG pO2 ABG HCO3 ABG Base Excess ABG Hemoglobin Oxyhemoglobin Sodium Potassium Chloride Carbon Dioxide BUN Creatinine Glucose POC Glucose 146 H 255 H 182 H Lactic Acid Calcium AST Alkaline Phosphatase Albumin Urine WBC (Auto) 01/22/17 01/23/17 01/23/17 23:39 04:43 12:12 WBC RBC Hgb Hct MCV MCH RDW Plt Count Lymph % (Auto) Grady % (Auto) Eos % (Auto) Seg Neutrophils % Seg Neuts % (Manual) Lymphocytes % (Manual) Seg Neutrophils # Seg Neutrophils # Man Lymphocytes # (Manual) POC ABG pH ABG pH POC ABG pCO2 POC ABG pO2 ABG pO2 ABG HCO3 ABG Base Excess ABG Hemoglobin Oxyhemoglobin Sodium Potassium Chloride Carbon Dioxide BUN Creatinine Glucose POC Glucose 134 H 218 H 128 H Lactic Acid Calcium AST Alkaline Phosphatase Albumin Urine WBC (Auto) 01/23/17 01/24/17 01/24/17 17:36 00:08 05:16 WBC RBC Hgb Hct MCV MCH RDW Plt Count Lymph % (Auto) Grady % (Auto) Eos % (Auto) Seg Neutrophils % Seg Neuts % (Manual) Lymphocytes % (Manual) Seg Neutrophils # Seg Neutrophils # Man Lymphocytes # (Manual) POC ABG pH ABG pH POC ABG pCO2 POC ABG pO2 ABG pO2 ABG HCO3 ABG Base Excess ABG Hemoglobin Oxyhemoglobin Sodium Potassium Chloride Carbon Dioxide BUN Creatinine Glucose POC Glucose 156 H 129 H 169 H Lactic Acid Calcium AST Alkaline Phosphatase Albumin Urine WBC (Auto) 01/24/17 01/24/17 01/24/17 11:40 17:43 23:23 WBC RBC Hgb Hct MCV MCH RDW Plt Count Lymph % (Auto) Grady % (Auto) Eos % (Auto) Seg Neutrophils % Seg Neuts % (Manual) Lymphocytes % (Manual) Seg Neutrophils # Seg Neutrophils # Man Lymphocytes # (Manual) POC ABG pH ABG pH POC ABG pCO2 POC ABG pO2 ABG pO2 ABG HCO3 ABG Base Excess ABG Hemoglobin Oxyhemoglobin Sodium Potassium Chloride Carbon Dioxide BUN Creatinine Glucose POC Glucose 187 H 215 H 222 H Lactic Acid Calcium AST Alkaline Phosphatase Albumin Urine WBC (Auto) 01/25/17 01/25/17 01/25/17 04:56 11:52 17:37 WBC RBC Hgb Hct MCV MCH RDW Plt Count Lymph % (Auto) Grady % (Auto) Eos % (Auto) Seg Neutrophils % Seg Neuts % (Manual) Lymphocytes % (Manual) Seg Neutrophils # Seg Neutrophils # Man Lymphocytes # (Manual) POC ABG pH ABG pH POC ABG pCO2 POC ABG pO2 ABG pO2 ABG HCO3 ABG Base Excess ABG Hemoglobin Oxyhemoglobin Sodium Potassium Chloride Carbon Dioxide BUN Creatinine Glucose POC Glucose 210 H 284 H 218 H Lactic Acid Calcium AST Alkaline Phosphatase Albumin Urine WBC (Auto) 01/26/17 01/26/17 01/26/17 00:02 05:33 12:17 WBC RBC Hgb Hct MCV MCH RDW Plt Count Lymph % (Auto) Grady % (Auto) Eos % (Auto) Seg Neutrophils % Seg Neuts % (Manual) Lymphocytes % (Manual) Seg Neutrophils # Seg Neutrophils # Man Lymphocytes # (Manual) POC ABG pH ABG pH POC ABG pCO2 POC ABG pO2 ABG pO2 ABG HCO3 ABG Base Excess ABG Hemoglobin Oxyhemoglobin Sodium Potassium Chloride Carbon Dioxide BUN Creatinine Glucose POC Glucose 192 H 199 H 227 H Lactic Acid Calcium AST Alkaline Phosphatase Albumin Urine WBC (Auto) 01/26/17 01/26/17 01/27/17 17:50 23:57 05:31 WBC RBC Hgb Hct MCV MCH RDW Plt Count Lymph % (Auto) Grady % (Auto) Eos % (Auto) Seg Neutrophils % Seg Neuts % (Manual) Lymphocytes % (Manual) Seg Neutrophils # Seg Neutrophils # Man Lymphocytes # (Manual) POC ABG pH ABG pH POC ABG pCO2 POC ABG pO2 ABG pO2 ABG HCO3 ABG Base Excess ABG Hemoglobin Oxyhemoglobin Sodium Potassium Chloride Carbon Dioxide BUN Creatinine Glucose POC Glucose 229 H 186 H 285 H Lactic Acid Calcium AST Alkaline Phosphatase Albumin Urine WBC (Auto) 01/27/17 01/27/17 01/27/17 11:42 17:47 23:58 WBC RBC Hgb Hct MCV MCH RDW Plt Count Lymph % (Auto) Grady % (Auto) Eos % (Auto) Seg Neutrophils % Seg Neuts % (Manual) Lymphocytes % (Manual) Seg Neutrophils # Seg Neutrophils # Man Lymphocytes # (Manual) POC ABG pH ABG pH POC ABG pCO2 POC ABG pO2 ABG pO2 ABG HCO3 ABG Base Excess ABG Hemoglobin Oxyhemoglobin Sodium Potassium Chloride Carbon Dioxide BUN Creatinine Glucose POC Glucose 260 H 329 H 225 H Lactic Acid Calcium AST Alkaline Phosphatase Albumin Urine WBC (Auto) 01/27/17 01/27/17 01/28/17 Unknown Unknown 03:44 WBC 12.1 H RBC 3.28 L 3.14 L Hgb 8.5 L 8.2 L Hct 25.5 L 24.1 L MCV 78 L 77 L MCH 26 L 26 L RDW 16.8 H 16.9 H Plt Count 601 H 567 H Lymph % (Auto) Grady % (Auto) Eos % (Auto) Seg Neutrophils % Seg Neuts % (Manual) Lymphocytes % (Manual) Seg Neutrophils # Seg Neutrophils # Man Lymphocytes # (Manual) POC ABG pH ABG pH POC ABG pCO2 POC ABG pO2 ABG pO2 ABG HCO3 ABG Base Excess ABG Hemoglobin Oxyhemoglobin Sodium 128 L Potassium 5.4 H Chloride 87.5 L Carbon Dioxide BUN 44 H Creatinine Glucose 250 H POC Glucose Lactic Acid Calcium AST Alkaline Phosphatase Albumin Urine WBC (Auto) 01/28/17 01/28/17 01/28/17 03:44 11:43 16:47 WBC RBC Hgb Hct MCV MCH RDW Plt Count Lymph % (Auto) Grady % (Auto) Eos % (Auto) Seg Neutrophils % Seg Neuts % (Manual) Lymphocytes % (Manual) Seg Neutrophils # Seg Neutrophils # Man Lymphocytes # (Manual) POC ABG pH ABG pH POC ABG pCO2 POC ABG pO2 ABG pO2 ABG HCO3 ABG Base Excess ABG Hemoglobin Oxyhemoglobin Sodium Potassium Chloride Carbon Dioxide BUN 42 H Creatinine Glucose 128 H POC Glucose 351 H 249 H Lactic Acid Calcium AST Alkaline Phosphatase Albumin Urine WBC (Auto) 01/28/17 01/29/17 01/29/17 17:52 05:25 05:25 WBC 13.6 H RBC 3.25 L Hgb 8.3 L Hct 25.1 L MCV 77 L MCH 26 L RDW 16.8 H Plt Count 514 H Lymph % (Auto) Grady % (Auto) Eos % (Auto) Seg Neutrophils % Seg Neuts % (Manual) Lymphocytes % (Manual) Seg Neutrophils # Seg Neutrophils # Man Lymphocytes # (Manual) POC ABG pH ABG pH POC ABG pCO2 POC ABG pO2 ABG pO2 ABG HCO3 ABG Base Excess ABG Hemoglobin Oxyhemoglobin Sodium Potassium Chloride 97.8 L Carbon Dioxide BUN 34 H Creatinine Glucose 222 H POC Glucose Lactic Acid Calcium AST Alkaline Phosphatase Albumin Urine WBC (Auto) > 182.0 H 01/29/17 01/29/17 01/29/17 09:32 11:56 18:11 WBC RBC Hgb Hct MCV MCH RDW Plt Count Lymph % (Auto) Grady % (Auto) Eos % (Auto) Seg Neutrophils % Seg Neuts % (Manual) Lymphocytes % (Manual) Seg Neutrophils # Seg Neutrophils # Man Lymphocytes # (Manual) POC ABG pH ABG pH POC ABG pCO2 POC ABG pO2 ABG pO2 ABG HCO3 ABG Base Excess ABG Hemoglobin Oxyhemoglobin Sodium Potassium Chloride Carbon Dioxide BUN Creatinine Glucose POC Glucose 261 H 215 H Lactic Acid 2.50 H* Calcium AST Alkaline Phosphatase Albumin Urine WBC (Auto) 01/29/17 01/30/17 01/30/17 23:55 05:31 05:31 WBC 15.2 H RBC 3.09 L Hgb 7.9 L Hct 23.9 L MCV 77 L MCH 26 L RDW 16.9 H Plt Count 569 H Lymph % (Auto) Grady % (Auto) Eos % (Auto) Seg Neutrophils % Seg Neuts % (Manual) Lymphocytes % (Manual) Seg Neutrophils # Seg Neutrophils # Man Lymphocytes # (Manual) POC ABG pH ABG pH POC ABG pCO2 POC ABG pO2 ABG pO2 ABG HCO3 ABG Base Excess ABG Hemoglobin Oxyhemoglobin Sodium Potassium Chloride Carbon Dioxide BUN 24 H Creatinine Glucose 235 H POC Glucose 176 H Lactic Acid Calcium AST Alkaline Phosphatase Albumin Urine WBC (Auto) 01/30/17 01/30/17 01/30/17 05:34 11:38 17:58 WBC RBC Hgb Hct MCV MCH RDW Plt Count Lymph % (Auto) Grady % (Auto) Eos % (Auto) Seg Neutrophils % Seg Neuts % (Manual) Lymphocytes % (Manual) Seg Neutrophils # Seg Neutrophils # Man Lymphocytes # (Manual) POC ABG pH ABG pH POC ABG pCO2 POC ABG pO2 ABG pO2 ABG HCO3 ABG Base Excess ABG Hemoglobin Oxyhemoglobin Sodium Potassium Chloride Carbon Dioxide BUN Creatinine Glucose POC Glucose 243 H 298 H 208 H Lactic Acid Calcium AST Alkaline Phosphatase Albumin Urine WBC (Auto) 01/30/17 01/31/17 01/31/17 23:29 04:39 04:39 WBC 11.4 H RBC 3.22 L Hgb 8.2 L Hct 24.9 L MCV 78 L MCH 25 L RDW 17.2 H Plt Count 576 H Lymph % (Auto) Grady % (Auto) Eos % (Auto) Seg Neutrophils % Seg Neuts % (Manual) Lymphocytes % (Manual) Seg Neutrophils # Seg Neutrophils # Man Lymphocytes # (Manual) POC ABG pH ABG pH POC ABG pCO2 POC ABG pO2 ABG pO2 ABG HCO3 ABG Base Excess ABG Hemoglobin Oxyhemoglobin Sodium Potassium Chloride Carbon Dioxide BUN Creatinine 0.7 L Glucose 223 H POC Glucose 245 H Lactic Acid Calcium AST Alkaline Phosphatase Albumin Urine WBC (Auto) 01/31/17 01/31/17 01/31/17 05:57 12:23 17:41 WBC RBC Hgb Hct MCV MCH RDW Plt Count Lymph % (Auto) Grady % (Auto) Eos % (Auto) Seg Neutrophils % Seg Neuts % (Manual) Lymphocytes % (Manual) Seg Neutrophils # Seg Neutrophils # Man Lymphocytes # (Manual) POC ABG pH ABG pH POC ABG pCO2 POC ABG pO2 ABG pO2 ABG HCO3 ABG Base Excess ABG Hemoglobin Oxyhemoglobin Sodium Potassium Chloride Carbon Dioxide BUN Creatinine Glucose POC Glucose 264 H 252 H 208 H Lactic Acid Calcium AST Alkaline Phosphatase Albumin Urine WBC (Auto) 01/31/17 01/31/17 02/01/17 18:55 22:59 03:38 WBC RBC 2.81 L Hgb 7.4 L Hct 22.1 L MCV 79 L MCH 27 L RDW 17.0 H Plt Count 540 H Lymph % (Auto) Grady % (Auto) Eos % (Auto) Seg Neutrophils % Seg Neuts % (Manual) Lymphocytes % (Manual) Seg Neutrophils # Seg Neutrophils # Man Lymphocytes # (Manual) POC ABG pH ABG pH POC ABG pCO2 32.8 L POC ABG pO2 ABG pO2 ABG HCO3 ABG Base Excess ABG Hemoglobin Oxyhemoglobin Sodium Potassium Chloride Carbon Dioxide BUN Creatinine Glucose POC Glucose 40 L Lactic Acid Calcium AST Alkaline Phosphatase Albumin Urine WBC (Auto) 02/01/17 02/01/17 02/01/17 03:38 05:17 12:19 WBC RBC Hgb Hct MCV MCH RDW Plt Count Lymph % (Auto) Grady % (Auto) Eos % (Auto) Seg Neutrophils % Seg Neuts % (Manual) Lymphocytes % (Manual) Seg Neutrophils # Seg Neutrophils # Man Lymphocytes # (Manual) POC ABG pH ABG pH POC ABG pCO2 POC ABG pO2 ABG pO2 ABG HCO3 ABG Base Excess ABG Hemoglobin Oxyhemoglobin Sodium Potassium Chloride Carbon Dioxide 21 L BUN Creatinine 0.7 L Glucose POC Glucose 140 H 213 H Lactic Acid Calcium AST Alkaline Phosphatase Albumin Urine WBC (Auto) 02/01/17 02/01/17 02/02/17 16:44 23:59 05:14 WBC RBC Hgb Hct MCV MCH RDW Plt Count Lymph % (Auto) Grady % (Auto) Eos % (Auto) Seg Neutrophils % Seg Neuts % (Manual) Lymphocytes % (Manual) Seg Neutrophils # Seg Neutrophils # Man Lymphocytes # (Manual) POC ABG pH ABG pH POC ABG pCO2 POC ABG pO2 ABG pO2 ABG HCO3 ABG Base Excess ABG Hemoglobin Oxyhemoglobin Sodium Potassium Chloride Carbon Dioxide BUN Creatinine Glucose POC Glucose 172 H 181 H 194 H Lactic Acid Calcium AST Alkaline Phosphatase Albumin Urine WBC (Auto) 02/02/17 02/02/17 02/02/17 11:24 11:46 11:46 WBC RBC 2.94 L Hgb 7.5 L Hct 23.0 L MCV 78 L MCH 25 L RDW 16.9 H Plt Count 520 H Lymph % (Auto) Grady % (Auto) Eos % (Auto) Seg Neutrophils % Seg Neuts % (Manual) Lymphocytes % (Manual) Seg Neutrophils # Seg Neutrophils # Man Lymphocytes # (Manual) POC ABG pH ABG pH POC ABG pCO2 POC ABG pO2 ABG pO2 ABG HCO3 ABG Base Excess ABG Hemoglobin Oxyhemoglobin Sodium Potassium Chloride Carbon Dioxide BUN Creatinine 0.6 L Glucose 189 H POC Glucose 209 H Lactic Acid Calcium 8.1 L AST Alkaline Phosphatase Albumin Urine WBC (Auto) 02/02/17 02/02/17 02/03/17 17:47 23:32 05:53 WBC RBC Hgb Hct MCV MCH RDW Plt Count Lymph % (Auto) Grady % (Auto) Eos % (Auto) Seg Neutrophils % Seg Neuts % (Manual) Lymphocytes % (Manual) Seg Neutrophils # Seg Neutrophils # Man Lymphocytes # (Manual) POC ABG pH ABG pH POC ABG pCO2 POC ABG pO2 ABG pO2 ABG HCO3 ABG Base Excess ABG Hemoglobin Oxyhemoglobin Sodium Potassium Chloride Carbon Dioxide BUN Creatinine Glucose POC Glucose 147 H 176 H 224 H Lactic Acid Calcium AST Alkaline Phosphatase Albumin Urine WBC (Auto) 02/03/17 02/03/17 02/03/17 11:19 16:59 23:38 WBC RBC Hgb Hct MCV MCH RDW Plt Count Lymph % (Auto) Grady % (Auto) Eos % (Auto) Seg Neutrophils % Seg Neuts % (Manual) Lymphocytes % (Manual) Seg Neutrophils # Seg Neutrophils # Man Lymphocytes # (Manual) POC ABG pH ABG pH POC ABG pCO2 POC ABG pO2 ABG pO2 ABG HCO3 ABG Base Excess ABG Hemoglobin Oxyhemoglobin Sodium Potassium Chloride Carbon Dioxide BUN Creatinine Glucose POC Glucose 228 H 189 H 191 H Lactic Acid Calcium AST Alkaline Phosphatase Albumin Urine WBC (Auto) 02/04/17 02/04/17 02/04/17 05:45 11:20 17:20 WBC RBC Hgb Hct MCV MCH RDW Plt Count Lymph % (Auto) Grady % (Auto) Eos % (Auto) Seg Neutrophils % Seg Neuts % (Manual) Lymphocytes % (Manual) Seg Neutrophils # Seg Neutrophils # Man Lymphocytes # (Manual) POC ABG pH ABG pH POC ABG pCO2 POC ABG pO2 ABG pO2 ABG HCO3 ABG Base Excess ABG Hemoglobin Oxyhemoglobin Sodium Potassium Chloride Carbon Dioxide BUN Creatinine Glucose POC Glucose 251 H 243 H 163 H Lactic Acid Calcium AST Alkaline Phosphatase Albumin Urine WBC (Auto) 02/05/17 02/05/17 02/05/17 00:17 05:38 12:38 WBC RBC Hgb Hct MCV MCH RDW Plt Count Lymph % (Auto) Grady % (Auto) Eos % (Auto) Seg Neutrophils % Seg Neuts % (Manual) Lymphocytes % (Manual) Seg Neutrophils # Seg Neutrophils # Man Lymphocytes # (Manual) POC ABG pH ABG pH POC ABG pCO2 POC ABG pO2 ABG pO2 ABG HCO3 ABG Base Excess ABG Hemoglobin Oxyhemoglobin Sodium Potassium Chloride Carbon Dioxide BUN Creatinine Glucose POC Glucose 200 H 248 H 241 H Lactic Acid Calcium AST Alkaline Phosphatase Albumin Urine WBC (Auto) 02/05/17 02/05/17 02/06/17 16:29 23:56 05:30 WBC RBC Hgb Hct MCV MCH RDW Plt Count Lymph % (Auto) Grady % (Auto) Eos % (Auto) Seg Neutrophils % Seg Neuts % (Manual) Lymphocytes % (Manual) Seg Neutrophils # Seg Neutrophils # Man Lymphocytes # (Manual) POC ABG pH ABG pH POC ABG pCO2 POC ABG pO2 ABG pO2 ABG HCO3 ABG Base Excess ABG Hemoglobin Oxyhemoglobin Sodium Potassium Chloride Carbon Dioxide BUN Creatinine Glucose POC Glucose 257 H 258 H 120 H Lactic Acid Calcium AST Alkaline Phosphatase Albumin Urine WBC (Auto) 02/06/17 02/06/17 02/06/17 11:50 17:11 23:50 WBC RBC Hgb Hct MCV MCH RDW Plt Count Lymph % (Auto) [place]ady % (Auto) Eos % (Auto) Seg Neutrophils % Seg Neuts % (Manual) Lymphocytes % (Manual) Seg Neutrophils # Seg Neutrophils # Man Lymphocytes # (Manual) POC ABG pH ABG pH POC ABG pCO2 POC ABG pO2 ABG pO2 ABG HCO3 ABG Base Excess ABG Hemoglobin Oxyhemoglobin Sodium Potassium Chloride Carbon Dioxide BUN Creatinine Glucose POC Glucose 254 H 149 H 240 H Lactic Acid Calcium AST Alkaline Phosphatase Albumin Urine WBC (Auto) 02/07/17 02/07/17 02/07/17 05:22 11:15 18:33 WBC RBC Hgb Hct MCV MCH RDW Plt Count Lymph % (Auto) [place]ady % (Auto) Eos % (Auto) Seg Neutrophils % Seg Neuts % (Manual) Lymphocytes % (Manual) Seg Neutrophils # Seg Neutrophils # Man Lymphocytes # (Manual) POC ABG pH ABG pH POC ABG pCO2 POC ABG pO2 ABG pO2 ABG HCO3 ABG Base Excess ABG Hemoglobin Oxyhemoglobin Sodium Potassium Chloride Carbon Dioxide BUN Creatinine Glucose POC Glucose 258 H 239 H 176 H Lactic Acid Calcium AST Alkaline Phosphatase Albumin Urine WBC (Auto) 02/07/17 02/08/17 02/08/17 23:59 06:15 11:55 WBC RBC Hgb Hct MCV MCH RDW Plt Count Lymph % (Auto) [place]ady % (Auto) Eos % (Auto) Seg Neutrophils % Seg Neuts % (Manual) Lymphocytes % (Manual) Seg Neutrophils # Seg Neutrophils # Man Lymphocytes # (Manual) POC ABG pH ABG pH POC ABG pCO2 POC ABG pO2 ABG pO2 ABG HCO3 ABG Base Excess ABG Hemoglobin Oxyhemoglobin Sodium Potassium Chloride Carbon Dioxide BUN Creatinine Glucose POC Glucose 186 H 195 H 129 H Lactic Acid Calcium AST Alkaline Phosphatase Albumin Urine WBC (Auto) 02/08/17 02/08/17 02/09/17 16:55 23:51 05:51 WBC RBC Hgb Hct MCV MCH RDW Plt Count Lymph % (Auto) [place]ady % (Auto) Eos % (Auto) Seg Neutrophils % Seg Neuts % (Manual) Lymphocytes % (Manual) Seg Neutrophils # Seg Neutrophils # Man Lymphocytes # (Manual) POC ABG pH ABG pH POC ABG pCO2 POC ABG pO2 ABG pO2 ABG HCO3 ABG Base Excess ABG Hemoglobin Oxyhemoglobin Sodium Potassium Chloride Carbon Dioxide BUN Creatinine Glucose POC Glucose 246 H 262 H 295 H Lactic Acid Calcium AST Alkaline Phosphatase Albumin Urine WBC (Auto) 02/09/17 02/09/17 02/09/17 07:24 07:24 12:08 WBC 14.7 H RBC 3.39 L Hgb 8.9 L Hct 26.4 L MCV 78 L MCH 26 L RDW 18.4 H Plt Count 670 H Lymph % (Auto) 11.8 L Grady % (Auto) Eos % (Auto) Seg Neutrophils % 81.2 H Seg Neuts % (Manual) Lymphocytes % (Manual) Seg Neutrophils # 11.9 H Seg Neutrophils # Man Lymphocytes # (Manual) POC ABG pH ABG pH POC ABG pCO2 POC ABG pO2 ABG pO2 ABG HCO3 ABG Base Excess ABG Hemoglobin Oxyhemoglobin Sodium Potassium Chloride 95.5 L Carbon Dioxide BUN 52 H Creatinine Glucose 277 H POC Glucose 236 H Lactic Acid Calcium AST Alkaline Phosphatase Albumin Urine WBC (Auto) 02/09/17 02/10/17 02/10/17 18:39 00:01 05:44 WBC RBC Hgb Hct MCV MCH RDW Plt Count Lymph % (Auto) Grady % (Auto) Eos % (Auto) Seg Neutrophils % Seg Neuts % (Manual) Lymphocytes % (Manual) Seg Neutrophils # Seg Neutrophils # Man Lymphocytes # (Manual) POC ABG pH ABG pH POC ABG pCO2 POC ABG pO2 ABG pO2 ABG HCO3 ABG Base Excess ABG Hemoglobin Oxyhemoglobin Sodium Potassium Chloride Carbon Dioxide BUN Creatinine Glucose POC Glucose 151 H 210 H 201 H Lactic Acid Calcium AST Alkaline Phosphatase Albumin Urine WBC (Auto) 02/10/17 02/10/17 02/10/17 11:21 17:29 23:56 WBC RBC Hgb Hct MCV MCH RDW Plt Count Lymph % (Auto) [place]ady % (Auto) Eos % (Auto) Seg Neutrophils % Seg Neuts % (Manual) Lymphocytes % (Manual) Seg Neutrophils # Seg Neutrophils # Man Lymphocytes # (Manual) POC ABG pH ABG pH POC ABG pCO2 POC ABG pO2 ABG pO2 ABG HCO3 ABG Base Excess ABG Hemoglobin Oxyhemoglobin Sodium Potassium Chloride Carbon Dioxide BUN Creatinine Glucose POC Glucose 233 H 167 H 191 H Lactic Acid Calcium AST Alkaline Phosphatase Albumin Urine WBC (Auto) 02/11/17 02/11/17 02/11/17 05:24 12:25 17:03 WBC RBC Hgb Hct MCV MCH RDW Plt Count Lymph % (Auto) Grady % (Auto) Eos % (Auto) Seg Neutrophils % Seg Neuts % (Manual) Lymphocytes % (Manual) Seg Neutrophils # Seg Neutrophils # Man Lymphocytes # (Manual) POC ABG pH ABG pH POC ABG pCO2 POC ABG pO2 ABG pO2 ABG HCO3 ABG Base Excess ABG Hemoglobin Oxyhemoglobin Sodium Potassium Chloride Carbon Dioxide BUN Creatinine Glucose POC Glucose 135 H 275 H 172 H Lactic Acid Calcium AST Alkaline Phosphatase Albumin Urine WBC (Auto) 02/11/17 02/12/17 02/12/17 23:59 05:39 11:33 WBC RBC Hgb Hct MCV MCH RDW Plt Count Lymph % (Auto) Grady % (Auto) Eos % (Auto) Seg Neutrophils % Seg Neuts % (Manual) Lymphocytes % (Manual) Seg Neutrophils # Seg Neutrophils # Man Lymphocytes # (Manual) POC ABG pH ABG pH POC ABG pCO2 POC ABG pO2 ABG pO2 ABG HCO3 ABG Base Excess ABG Hemoglobin Oxyhemoglobin Sodium Potassium Chloride Carbon Dioxide BUN Creatinine Glucose POC Glucose 215 H 261 H 217 H Lactic Acid Calcium AST Alkaline Phosphatase Albumin Urine WBC (Auto) 02/12/17 02/13/17 02/13/17 17:55 00:25 06:46 WBC RBC Hgb Hct MCV MCH RDW Plt Count Lymph % (Auto) Grady % (Auto) Eos % (Auto) Seg Neutrophils % Seg Neuts % (Manual) Lymphocytes % (Manual) Seg Neutrophils # Seg Neutrophils # Man Lymphocytes # (Manual) POC ABG pH ABG pH POC ABG pCO2 POC ABG pO2 ABG pO2 ABG HCO3 ABG Base Excess ABG Hemoglobin Oxyhemoglobin Sodium Potassium Chloride Carbon Dioxide BUN Creatinine Glucose POC Glucose 172 H 207 H 219 H Lactic Acid Calcium AST Alkaline Phosphatase Albumin Urine WBC (Auto) 02/13/17 02/13/17 02/13/17 11:26 17:12 23:44 WBC RBC Hgb Hct MCV MCH RDW Plt Count Lymph % (Auto) [place]ady % (Auto) Eos % (Auto) Seg Neutrophils % Seg Neuts % (Manual) Lymphocytes % (Manual) Seg Neutrophils # Seg Neutrophils # Man Lymphocytes # (Manual) POC ABG pH ABG pH POC ABG pCO2 POC ABG pO2 ABG pO2 ABG HCO3 ABG Base Excess ABG Hemoglobin Oxyhemoglobin Sodium Potassium Chloride Carbon Dioxide BUN Creatinine Glucose POC Glucose 231 H 190 H 256 H Lactic Acid Calcium AST Alkaline Phosphatase Albumin Urine WBC (Auto) 02/14/17 02/14/17 02/14/17 05:44 12:21 23:18 WBC RBC Hgb Hct MCV MCH RDW Plt Count Lymph % (Auto) Grady % (Auto) Eos % (Auto) Seg Neutrophils % Seg Neuts % (Manual) Lymphocytes % (Manual) Seg Neutrophils # Seg Neutrophils # Man Lymphocytes # (Manual) POC ABG pH ABG pH POC ABG pCO2 POC ABG pO2 ABG pO2 ABG HCO3 ABG Base Excess ABG Hemoglobin Oxyhemoglobin Sodium Potassium Chloride Carbon Dioxide BUN Creatinine Glucose POC Glucose 184 H 233 H 165 H Lactic Acid Calcium AST Alkaline Phosphatase Albumin Urine WBC (Auto) 02/15/17 05:33 WBC RBC Hgb Hct MCV MCH RDW Plt Count Lymph % (Auto) Grady % (Auto) Eos % (Auto) Seg Neutrophils % Seg Neuts % (Manual) Lymphocytes % (Manual) Seg Neutrophils # Seg Neutrophils # Man Lymphocytes # (Manual) POC ABG pH ABG pH POC ABG pCO2 POC ABG pO2 ABG pO2 ABG HCO3 ABG Base Excess ABG Hemoglobin Oxyhemoglobin Sodium Potassium Chloride Carbon Dioxide BUN Creatinine Glucose POC Glucose 239 H Lactic Acid Calcium AST Alkaline Phosphatase Albumin Urine WBC (Auto)
--- NOTE | 2017-02-15 15:56 | Progress Note ---
Assessment and Plan Assessment and plan: 51 yo male with DM, HTN, CKD, alcohol abuse and history of delirium tremens, found down and unresponsive; upon EMS arrival, serum glucose found to be 21 and insulin syringes around; unable to protect airway, so intubated; metabolic abnormalities corrected, but he remained unresponsive. outpatient services director unable to locate any family. Ethics committee decided to make him DO NOT RESUSCITATE, but was not willing to sign for withdrawal of ventilator. Further care felt to be futile and would only prolong potential suffering without affecting ultimate outcome. Currently [facility]. Awaiting guardianship from the state. 1. Acute hypoxic respiratory failure On ventilator Trach not warranted given his extremely poor prognosis 2. Hypoglycemic brain injury/Metabolic encephalopathy 3. Vegetative state 4. Hypothyroidism Free T4 normal, so myxedema, less likely 5. SIRS 6. Poor prognosis. Made DO NOT RESUSCITATE and [facility] by ethics committee. Awaiting state guardianship History Interval history: comatose, unresponsive no events Hospitalist Physical - Constitutional Vitals: Temp Pulse Resp BP Pulse Ox 98.7 F 63 18 130/77 100 02/15/17 12:00 02/15/17 12:00 02/15/17 12:00 02/15/17 12:00 02/15/17 12:00 General appearance: Present: no acute distress, other (comatose, unresponsive) - Respiratory Respiratory effort: other (on vent) Respiratory: bilateral: CTA, negative: rhonchi, wheezing - Cardiovascular Rhythm: regular Heart Sounds: Present: S1 & S2. Absent: systolic murmur - Extremities Extremities: no ischemia - Abdominal General gastrointestinal: soft, non-tender, non-distended, normal bowel sounds - Psychiatric Psychiatric: other (unresponsive ) - Neurologic Neurologic: other (flaccid, no reflexes) Results - Labs CBC & Chem 7: 02/09/17 07:24 02/09/17 07:24 Labs: Laboratory Last Values WBC 14.7 K/mm3 (4.5-11.0) H 02/09/17 07:24 RBC 3.39 M/mm3 (3.65-5.03) L 02/09/17 07:24 Hgb 8.9 gm/dl (11.8-15.2) L 02/09/17 07:24 Hct 26.4 % (35.5-45.6) L 02/09/17 07:24 MCV 78 fl (84-94) L 02/09/17 07:24 MCH 26 pg (28-32) L 02/09/17 07:24 MCHC 34 % (32-34) 02/09/17 07:24 RDW 18.4 % (13.2-15.2) H 02/09/17 07:24 Plt Count 670 K/mm3 (140-440) H 02/09/17 07:24 Lymph % (Auto) 11.8 % (13.4-35.0) L 02/09/17 07:24 Campbell % (Auto) 4.7 % (0.0-7.3) 02/09/17 07:24 Eos % (Auto) 1.9 % (0.0-4.3) 02/09/17 07:24 Baso % (Auto) 0.4 % (0.0-1.8) 02/09/17 07:24 Lymph # 1.7 K/mm3 (1.2-5.4) 02/09/17 07:24 Campbell # 0.7 K/mm3 (0.0-0.8) 02/09/17 07:24 Eos # 0.3 K/mm3 (0.0-0.4) 02/09/17 07:24 Baso # 0.1 K/mm3 (0.0-0.1) 02/09/17 07:24 Add Manual Diff Complete 01/10/17 04:30 Total Counted 100 01/10/17 04:30 Seg Neutrophils % 81.2 % (40.0-70.0) H 02/09/17 07:24 Seg Neuts % (Manual) 88.0 % (40.0-70.0) H 01/10/17 04:30 Band Neutrophils % 7.0 % 01/10/17 04:30 Lymphocytes % (Manual) 4.0 % (13.4-35.0) L 01/10/17 04:30 Reactive Lymphs % (Man) 0 % 01/10/17 04:30 Monocytes % (Manual) 1.0 % (0.0-7.3) 01/10/17 04:30 Eosinophils % (Manual) 0 % (0.0-4.3) 01/10/17 04:30 Basophils % (Manual) 0 % (0.0-1.8) 01/10/17 04:30 Metamyelocytes % 0 % 01/10/17 04:30 Myelocytes % 0 % 01/10/17 04:30 Promyelocytes % 0 % 01/10/17 04:30 Blast Cells % 0 % 01/10/17 04:30 Nucleated RBC % Not Reportable 01/10/17 04:30 Seg Neutrophils # 11.9 K/mm3 (1.8-7.7) H 02/09/17 07:24 Seg Neutrophils # Man 21.2 K/mm3 (1.8-7.7) H 01/10/17 04:30 Band Neutrophils # 1.7 K/mm3 01/10/17 04:30 Lymphocytes # (Manual) 1.0 K/mm3 (1.2-5.4) L 01/10/17 04:30 Abs React Lymphs (Man) 0.0 K/mm3 01/10/17 04:30 Monocytes # (Manual) 0.2 K/mm3 (0.0-0.8) 01/10/17 04:30 Eosinophils # (Manual) 0.0 K/mm3 (0.0-0.4) 01/10/17 04:30 Basophils # (Manual) 0.0 K/mm3 (0.0-0.1) 01/10/17 04:30 Metamyelocytes # 0.0 K/mm3 01/10/17 04:30 Myelocytes # 0.0 K/mm3 01/10/17 04:30 Promyelocytes # 0.0 K/mm3 01/10/17 04:30 Blast Cells # 0.0 K/mm3 01/10/17 04:30 WBC Morphology Not Reportable 01/10/17 04:30 Hypersegmented Neuts Not Reportable 01/10/17 04:30 Hyposegmented Neuts Not Reportable 01/10/17 04:30 Hypogranular Neuts Not Reportable 01/10/17 04:30 Smudge Cells Not Reportable 01/10/17 04:30 Toxic Granulation Not Reportable 01/10/17 04:30 Toxic Vacuolation Not Reportable 01/10/17 04:30 Dohle Bodies Not Reportable 01/10/17 04:30 Pelger-Huet Anomaly Not Reportable 01/10/17 04:30 Shelby Rods Not Reportable 01/10/17 04:30 Platelet Estimate Consistent w auto 01/10/17 04:30 Clumped Platelets Not Reportable 01/10/17 04:30 Plt Clumps, EDTA Not Reportable 01/10/17 04:30 Large Platelets Not Reportable 01/10/17 04:30 Giant Platelets Not Reportable 01/10/17 04:30 Platelet Satelliting Not Reportable 01/10/17 04:30 Plt Morphology Comment Not Reportable 01/10/17 04:30 RBC Morphology Not Reportable 01/10/17 04:30 Dimorphic RBCs Not Reportable 01/10/17 04:30 Polychromasia Not Reportable 01/10/17 04:30 Hypochromasia 1+ 01/10/17 04:30 Poikilocytosis Not Reportable 01/10/17 04:30 Anisocytosis Not Reportable 01/10/17 04:30 Microcytosis Not Reportable 01/10/17 04:30 Macrocytosis Not Reportable 01/10/17 04:30 Spherocytes Not Reportable 01/10/17 04:30 Pappenheimer Bodies Not Reportable 01/10/17 04:30 Sickle Cells Not Reportable 01/10/17 04:30 Target Cells Not Reportable 01/10/17 04:30 Tear Drop Cells Not Reportable 01/10/17 04:30 Ovalocytes Not Reportable 01/10/17 04:30 Helmet Cells Not Reportable 01/10/17 04:30 Jarrett-Oldham Bodies Not Reportable 01/10/17 04:30 [place] Rings Not Reportable 01/10/17 04:30 Farrar Cells Not Reportable 01/10/17 04:30 Bite Cells Not Reportable 01/10/17 04:30 Crenated Cell Not Reportable 01/10/17 04:30 Elliptocytes Not Reportable 01/10/17 04:30 Acanthocytes (Spur) Not Reportable 01/10/17 04:30 Rouleaux Not Reportable 01/10/17 04:30 Hemoglobin C Crystals Not Reportable 01/10/17 04:30 Schistocytes Not Reportable 01/10/17 04:30 Malaria parasites Not Reportable 01/10/17 04:30 Kyle Bodies Not Reportable 01/10/17 04:30 Hem Pathologist Commnt No 01/10/17 04:30 PT 14.1 Sec. (12.2-14.9) 01/17/17 04:10 INR 1.04 (0.87-1.13) 01/17/17 04:10 APTT 36.6 Sec. (24.2-36.6) 01/17/17 04:10 POC ABG pH 7.442 (7.35-7.45) 01/31/17 18:55 ABG pH 7.420 pH Units (7.350-7.450) 01/17/17 04:35 POC ABG pCO2 32.8 (35-45) L 01/31/17 18:55 ABG pCO2 34.5 mm Hg 01/17/17 04:35 POC ABG pO2 82 (80-105) 01/31/17 18:55 ABG pO2 160.3 mm Hg (80.0-90.0) H 01/17/17 04:35 POC ABG HCO3 22.4 01/31/17 18:55 ABG HCO3 21.9 mmol/L (20.0-26.0) 01/17/17 04:35 POC ABG Total CO2 23 01/31/17 18:55 POC ABG O2 Sat 97 01/31/17 18:55 ABG O2 Saturation 99.0 % (95.0-99.0) 01/17/17 04:35 ABG O2 Content 11.1 (0.0-44) 01/17/17 04:35 POC ABG Base Excess -2 01/31/17 18:55 ABG Base Excess -2.3 mmol/L (-2.0-3.0) L 01/17/17 04:35 ABG Hemoglobin 7.9 gm/dl (14.0-18.0) L 01/17/17 04:35 ABG Carboxyhemoglobin 1.5 % (0.0-5.0) 01/17/17 04:35 ABG Methemoglobin 0.5 % (0.0-1.5) 01/17/17 04:35 VBG pH 7.284 (7.320-7.420) L 01/09/17 10:16 Oxyhemoglobin 97.1 % (95.0-99.0) 01/17/17 04:35 FiO2 25 % 01/31/17 18:55 Sodium 137 mmol/L (137-145) 11/01/17 07:24 Potassium 4.9 mmol/L (3.6-5.0) 02/09/17 07:24 Chloride 95.5 mmol/L (98-107) L 02/09/17 07:24 Carbon Dioxide 29 mmol/L (22-30) 02/09/17 07:24 Anion Gap 17 mmol/L 02/09/17 07:24 BUN 52 mg/dL (9-20) H 02/09/17 07:24 Creatinine 0.8 mg/dL (0.8-1.5) 02/09/17 07:24 Estimated GFR > 60 ml/min 02/09/17 07:24 BUN/Creatinine Ratio 65 % 02/09/17 07:24 Glucose 277 mg/dL (75-100) H 02/09/17 07:24 POC Glucose 239 (70-105) H 02/15/17 05:33 Lactic Acid 0.80 mmol/L (0.7-2.0) 01/30/17 11:49 Calcium 9.4 mg/dL (8.4-10.2) 02/09/17 07:24 Phosphorus 3.60 mg/dL (2.5-4.5) 01/22/17 04:00 Magnesium 2.10 mg/dL (1.7-2.3) 01/22/17 04:00 Total Bilirubin 0.30 mg/dL (0.1-1.2) 01/22/17 04:00 AST 44 units/L (5-40) H 01/22/17 04:00 ALT 23 units/L (7-56) 01/22/17 04:00 Alkaline Phosphatase 379 units/L (35-129) H 01/22/17 04:00 Ammonia 35.0 umol/L (25-60) 01/09/17 10:16 Total Creatine Kinase 135 units/L (55-170) 01/09/17 10:16 CK-MB (CK-2) 7.1 ng/mL (0.0-4.0) H 01/09/17 10:16 CK-MB (CK-2) Rel Index 5.2 (0-4) H 01/09/17 10:16 Troponin T < 0.010 ng/mL (0.00-0.029) 01/09/17 10:16 NT-Pro-B Natriuret Pep 602.9 pg/mL (0-900) 01/09/17 10:16 Total Protein 7.9 g/dL (6.3-8.2) 01/22/17 04:00 Albumin 2.7 g/dL (3.9-5) L 01/22/17 04:00 Albumin/Globulin Ratio 0.5 % 01/22/17 04:00 TSH 52.800 mlU/mL (0.270-4.200) H 01/09/17 10:16 Free T4 0.78 ng/dL (0.76-1.46) 01/09/17 10: Total Cortisol 54.8 mcg/dL () 01/09/17 16:19 Urine Color Yellow (Yellow) 01/28/17 17:52 Urine Turbidity Clear (Clear) 01/28/17 17:52 Urine pH 6.0 (5.0-7.0) 01/28/17 17:52 Ur Specific [place] 1.016 (1.003-1.030) 01/28/17 17:52 Urine Protein 100 mg/dl mg/dL (Negative) 01/28/17 17:52 Urine Glucose (UA) >=500 mg/dL (Negative) 01/28/17 17:52 Urine Ketones Neg mg/dL (Negative) 01/28/17 17:52 Urine Blood Sm (Negative) 01/28/17 17:52 Urine Nitrite Neg (Negative) 01/28/17 17:52 Urine Bilirubin Neg (Negative) 01/28/17 17:52 Urine Urobilinogen < 2.0 mg/dL (<2.0) 01/28/17 17:52 Ur Leukocyte Esterase Lg (Negative) 01/28/17 17:52 Urine WBC (Auto) > 182.0 /HPF (0.0-6.0) H 01/28/17 17:52 Urine RBC (Auto) 113.0 /HPF (0.0-6.0) 01/28/17 17:52 Urine Bacteria (Auto) 2+ /HPF (Negative) 01/28/17 17:52 Urine WBC Clumps 3+ /HPF 01/28/17 17:52 Urine Mucus Few /HPF 01/14/17 14:07 Urine Yeast (Budding) 3+ /HPF 01/14/17 14:07 Salicylates < 0.3 mg/dL (2.8-20.0) L 01/09/17 10:16 Urine Opiates Screen Presumptive negative 01/09/17 10:23 Urine Methadone Screen Presumptive negative 01/09/17 10:23 Acetaminophen < 15.0 ug/mL (10.0-30.0) 01/09/17 10:16 Ur Barbiturates Screen Presumptive negative 01/09/17 10:23 Ur Phencyclidine Scrn Presumptive negative 01/09/17 10:23 Ur Amphetamines Screen Presumptive negative 01/09/17 10:23 U Benzodiazepines Scrn Presumptive negative 01/09/17 10:23 Urine Cocaine Screen Presumptive negative 01/09/17 10:23 U Marijuana (THC) Screen Presumptive negative 01/09/17 10:23 Drugs of Abuse Note Disclamer 01/09/17 10:23 Plasma/Serum Alcohol < 0.01 gm% (0-0.07) 01/09/17 10:16
[2017-02-15] MEDS: TYLENOL FEEDTUBE PRN (21:47)
[2017-02-16] MEDS: NOVOLOG SUB-Q SCH ×4 (00:53→18:49)
[2017-02-16] MEDS: IMODIUM A-D PO PRN ×2 (04:16→06:33)
[2017-02-16] MEDS: SYNTHROID PO SCH (06:33)
[2017-02-16] MEDS: NORMODYNE PO SCH ×2 (09:24→21:51)
[2017-02-16] MEDS: PEPCID PO SCH ×2 (09:25→21:51)
[2017-02-16] MEDS: LEVEMIR (NF) SUB-Q SCH (09:39)
--- NOTE | 2017-02-16 09:51 | Progress Note ---
Assessment and Plan 51 y/o male found down, concern for sepsis and now encephalopathic requiring mechanical ventilation. No New recs for today. 1. continue supportive care 2. Spoke with Risk and the [employer] has requested that guardianship be persued. Dilemma is, once patient has been awarded guardianship, who will take him. Morally and ethically, given the prognosis provided by neurology, I do not feel placing a tracheostomy is the right thing to do. CCT 31 minutes. Subjective Date of service: 02/16/17 Principal diagnosis: Acute respiratory failure,encephalopathy Interval history: No acute events. Mental status unchanged. Objective Vital Signs - 12hr 02/15/17 02/15/17 02/15/17 21:49 22:01 22:47 Temperature Pulse Rate 69 70 Pulse Rate [ From Monitor] Respiratory 16 16 Rate Blood Pressure 133/83 144/98 O2 Sat by Pulse 100 Oximetry 02/15/17 02/15/17 02/16/17 23:08 23:25 00:01 Temperature 97.5 F L Pulse Rate 60 63 Pulse Rate [ From Monitor] Respiratory 16 Rate Blood Pressure 144/98 159/83 O2 Sat by Pulse 100 100 Oximetry 02/16/17 02/16/17 02/16/17 02:00 03:39 03:41 Temperature 99.2 F Pulse Rate 60 63 Pulse Rate [ From Monitor] Respiratory 15 Rate Blood Pressure 159/83 139/75 O2 Sat by Pulse 100 100 Oximetry 02/16/17 02/16/17 02/16/17 04:00 06:00 08:00 Temperature 98.7 F Pulse Rate 62 64 Pulse Rate [ 62 From Monitor] Respiratory 16 16 Rate Blood Pressure 132/79 142/83 O2 Sat by Pulse 100 100 Oximetry Constitutional: comatose, other (orally intubated, on vent) Eyes: non-icteric ENT: oropharynx moist Neck: supple Effort: normal Ascultation: Bilateral: clear, diminished breath sounds Cardiovascular: regular rate and rhythm (no mrg) Gastrointestinal: normoactive bowel sounds, soft, non-tender, non-distended Integumentary: normal Extremities: no cyanosis, no edema, pink and warm Neurologic: other (unresponsive, flaccid extremities) Psychiatric: other (unable to obtain) CBC and BMP: 02/09/17 07:24 02/09/17 07:24 ABG, PT/INR, D-dimer: ABG POC ABG pH 7.442 (7.35-7.45) 01/31/17 18:55 ABG pH 7.420 pH Units (7.350-7.450) 01/17/17 04:35 POC ABG pCO2 32.8 (35-45) L 01/31/17 18:55 ABG pCO2 34.5 mm Hg 01/17/17 04:35 POC ABG pO2 82 (80-105) 01/31/17 18:55 ABG pO2 160.3 mm Hg (80.0-90.0) H 01/17/17 04:35 POC ABG HCO3 22.4 01/31/17 18:55 POC ABG Total CO2 23 01/31/17 18:55 POC ABG O2 Sat 97 01/31/17 18:55 ABG O2 Saturation 99.0 % (95.0-99.0) 01/17/17 04:35 PT/INR, D-dimer PT 14.1 Sec. (12.2-14.9) 01/17/17 04:10 INR 1.04 (0.87-1.13) 01/17/17 04:10 Abnormal lab findings: Abnormal Labs 01/09/17 01/09/17 01/09/17 12:49 13:13 14:21 WBC RBC Hgb Hct MCV MCH RDW Plt Count Lymph % (Auto) Iron % (Auto) Eos % (Auto) Seg Neutrophils % Seg Neuts % (Manual) Lymphocytes % (Manual) Seg Neutrophils # Seg Neutrophils # Man Lymphocytes # (Manual) POC ABG pH ABG pH POC ABG pCO2 POC ABG pO2 ABG pO2 ABG HCO3 ABG Base Excess ABG Hemoglobin Oxyhemoglobin Sodium Potassium Chloride Carbon Dioxide BUN Creatinine Glucose POC Glucose < 40 L 128 H 65 L Lactic Acid Calcium AST Alkaline Phosphatase Albumin Urine WBC (Auto) 01/09/17 01/09/17 01/09/17 15:09 16:28 17:14 WBC RBC Hgb Hct MCV MCH RDW Plt Count Lymph % (Auto) Iron % (Auto) Eos % (Auto) Seg Neutrophils % Seg Neuts % (Manual) Lymphocytes % (Manual) Seg Neutrophils # Seg Neutrophils # Man Lymphocytes # (Manual) POC ABG pH ABG pH POC ABG pCO2 POC ABG pO2 ABG pO2 ABG HCO3 ABG Base Excess ABG Hemoglobin Oxyhemoglobin Sodium Potassium Chloride Carbon Dioxide BUN Creatinine Glucose POC Glucose 120 H 44 L 112 H Lactic Acid Calcium AST Alkaline Phosphatase Albumin Urine WBC (Auto) 01/10/17 01/10/17 01/10/17 04:30 04:30 05:41 WBC 24.1 H RBC 3.38 L Hgb 8.5 L Hct 26.0 L MCV 77 L MCH 25 L RDW 17.9 H Plt Count 474 H Lymph % (Auto) Iron % (Auto) Eos % (Auto) Seg Neutrophils % Seg Neuts % (Manual) 88.0 H Lymphocytes % (Manual) 4.0 L Seg Neutrophils # Seg Neutrophils # Man 21.2 H Lymphocytes # (Manual) 1.0 L POC ABG pH ABG pH POC ABG pCO2 POC ABG pO2 ABG pO2 ABG HCO3 ABG Base Excess ABG Hemoglobin Oxyhemoglobin Sodium Potassium Chloride Carbon Dioxide 17 L BUN 27 H Creatinine Glucose POC Glucose 68 L Lactic Acid Calcium 7.5 L AST Alkaline Phosphatase Albumin Urine WBC (Auto) 01/10/17 01/10/17 01/10/17 05:45 07:47 10:50 WBC RBC Hgb Hct MCV MCH RDW Plt Count Lymph % (Auto) Iron % (Auto) Eos % (Auto) Seg Neutrophils % Seg Neuts % (Manual) Lymphocytes % (Manual) Seg Neutrophils # Seg Neutrophils # Man Lymphocytes # (Manual) POC ABG pH ABG pH POC ABG pCO2 26.6 L POC ABG pO2 207 H ABG pO2 ABG HCO3 ABG Base Excess ABG Hemoglobin Oxyhemoglobin Sodium Potassium Chloride Carbon Dioxide BUN Creatinine Glucose POC Glucose 148 H 165 H Lactic Acid Calcium AST Alkaline Phosphatase Albumin Urine WBC (Auto) 01/10/17 01/10/17 01/10/17 13:41 20:20 21:39 WBC RBC Hgb Hct MCV MCH RDW Plt Count Lymph % (Auto) Iron % (Auto) Eos % (Auto) Seg Neutrophils % Seg Neuts % (Manual) Lymphocytes % (Manual) Seg Neutrophils # Seg Neutrophils # Man Lymphocytes # (Manual) POC ABG pH ABG pH POC ABG pCO2 POC ABG pO2 ABG pO2 ABG HCO3 ABG Base Excess ABG Hemoglobin Oxyhemoglobin Sodium Potassium Chloride Carbon Dioxide BUN Creatinine Glucose POC Glucose 114 H 150 H 175 H Lactic Acid Calcium AST Alkaline Phosphatase Albumin Urine WBC (Auto) 01/10/17 01/11/1701/11/17 23:24 00:19 04:06 WBC RBC Hgb Hct MCV MCH RDW Plt Count Lymph % (Auto) Iron % (Auto) Eos % (Auto) Seg Neutrophils % Seg Neuts % (Manual) Lymphocytes % (Manual) Seg Neutrophils # Seg Neutrophils # Man Lymphocytes # (Manual) POC ABG pH 7.463 H ABG pH POC ABG pCO2 26.2 L POC ABG pO2 185 H ABG pO2 ABG HCO3 ABG Base Excess ABG Hemoglobin Oxyhemoglobin Sodium Potassium Chloride Carbon Dioxide BUN Creatinine Glucose POC Glucose 155 H 163 H Lactic Acid Calcium AST Alkaline Phosphatase Albumin Urine WBC (Auto) 01/11/17 01/11/17 01/11/17 05:20 05:20 06:21 WBC 15.2 H RBC 3.40 L Hgb 8.9 L Hct 26.3 L MCV 78 L MCH 26 L RDW 18.6 H Plt Count 462 H Lymph % (Auto) 13.2 L Iron % (Auto) Eos % (Auto) Seg Neutrophils % 80.8 H Seg Neuts % (Manual) Lymphocytes % (Manual) Seg Neutrophils # 12.3 H Seg Neutrophils # Man Lymphocytes # (Manual) POC ABG pH ABG pH POC ABG pCO2 POC ABG pO2 ABG pO2 ABG HCO3 ABG Base Excess ABG Hemoglobin Oxyhemoglobin Sodium Potassium 3.4 L Chloride 111.5 H Carbon Dioxide 17 L BUN Creatinine Glucose 147 H POC Glucose 139 H Lactic Acid Calcium 8.0 L AST Alkaline Phosphatase Albumin Urine WBC (Auto) 01/11/17 01/11/17 01/11/17 07:57 11:46 16:50 WBC RBC Hgb Hct MCV MCH RDW Plt Count Lymph % (Auto) Iron % (Auto) Eos % (Auto) Seg Neutrophils % Seg Neuts % (Manual) Lymphocytes % (Manual) Seg Neutrophils # Seg Neutrophils # Man Lymphocytes # (Manual) POC ABG pH ABG pH POC ABG pCO2 POC ABG pO2 ABG pO2 ABG HCO3 ABG Base Excess ABG Hemoglobin Oxyhemoglobin Sodium Potassium Chloride Carbon Dioxide BUN Creatinine Glucose POC Glucose 188 H 199 H 235 H Lactic Acid Calcium AST Alkaline Phosphatase Albumin Urine WBC (Auto) 01/11/17 01/12/17 01/12/17 23:15 05:02 06:56 WBC RBC Hgb Hct MCV MCH RDW Plt Count Lymph % (Auto) Iron % (Auto) Eos % (Auto) Seg Neutrophils % Seg Neuts % (Manual) Lymphocytes % (Manual) Seg Neutrophils # Seg Neutrophils # Man Lymphocytes # (Manual) POC ABG pH ABG pH POC ABG pCO2 28.0 L POC ABG pO2 178 H ABG pO2 ABG HCO3 ABG Base Excess ABG Hemoglobin Oxyhemoglobin Sodium Potassium Chloride Carbon Dioxide BUN Creatinine Glucose POC Glucose 155 H 119 H Lactic Acid Calcium AST Alkaline Phosphatase Albumin Urine WBC (Auto) 01/12/17 01/13/17 01/13/17 14:50 03:37 03:37 WBC RBC 3.61 L Hgb 9.3 L Hct 28.0 L MCV 78 L MCH 26 L RDW 18.2 H Plt Count Lymph % (Auto) Iron % (Auto) Eos % (Auto) Seg Neutrophils % Seg Neuts % (Manual) Lymphocytes % (Manual) Seg Neutrophils # Seg Neutrophils # Man Lymphocytes # (Manual) POC ABG pH ABG pH POC ABG pCO2 POC ABG pO2 ABG pO2 ABG HCO3 ABG Base Excess ABG Hemoglobin Oxyhemoglobin Sodium Potassium Chloride 112.4 H Carbon Dioxide 19 L BUN Creatinine Glucose 118 H POC Glucose 164 H Lactic Acid Calcium 8.0 L AST Alkaline Phosphatase Albumin Urine WBC (Auto) 01/13/17 01/13/17 01/13/17 04:26 06:15 11:50 WBC RBC Hgb Hct MCV MCH RDW Plt Count Lymph % (Auto) Iron % (Auto) Eos % (Auto) Seg Neutrophils % Seg Neuts % (Manual) Lymphocytes % (Manual) Seg Neutrophils # Seg Neutrophils # Man Lymphocytes # (Manual) POC ABG pH 7.485 H ABG pH POC ABG pCO2 25.4 L POC ABG pO2 73 L ABG pO2 ABG HCO3 ABG Base Excess ABG Hemoglobin Oxyhemoglobin Sodium Potassium Chloride Carbon Dioxide BUN Creatinine Glucose POC Glucose 116 H 171 H Lactic Acid Calcium AST Alkaline Phosphatase Albumin Urine WBC (Auto) 01/13/17 01/14/17 01/14/17 17:31 00:02 04:50 WBC RBC 3.32 L Hgb 8.5 L Hct 26.1 L MCV 79 L MCH 26 L RDW 18.2 H Plt Count Lymph % (Auto) Iron % (Auto) 9.0 H Eos % (Auto) Seg Neutrophils % Seg Neuts % (Manual) Lymphocytes % (Manual) Seg Neutrophils # Seg Neutrophils # Man Lymphocytes # (Manual) POC ABG pH ABG pH POC ABG pCO2 POC ABG pO2 ABG pO2 ABG HCO3 ABG Base Excess ABG Hemoglobin Oxyhemoglobin Sodium Potassium Chloride Carbon Dioxide BUN Creatinine Glucose POC Glucose 203 H 157 H Lactic Acid Calcium AST Alkaline Phosphatase Albumin Urine WBC (Auto) 01/14/17 01/14/17 01/14/17 04:50 05:10 11:27 WBC RBC Hgb Hct MCV MCH RDW Plt Count Lymph % (Auto) Iron % (Auto) Eos % (Auto) Seg Neutrophils % Seg Neuts % (Manual) Lymphocytes % (Manual) Seg Neutrophils # Seg Neutrophils # Man Lymphocytes # (Manual) POC ABG pH ABG pH POC ABG pCO2 POC ABG pO2 ABG pO2 ABG HCO3 ABG Base Excess ABG Hemoglobin Oxyhemoglobin Sodium Potassium Chloride 112.5 H Carbon Dioxide BUN Creatinine Glucose 149 H POC Glucose 176 H 147 H Lactic Acid Calcium 8.1 L AST Alkaline Phosphatase Albumin Urine WBC (Auto) 01/14/17 01/14/17 01/15/17 14:07 16:52 00:04 WBC RBC Hgb Hct MCV MCH RDW Plt Count Lymph % (Auto) Iron % (Auto) Eos % (Auto) Seg Neutrophils % Seg Neuts % (Manual) Lymphocytes % (Manual) Seg Neutrophils # Seg Neutrophils # Man Lymphocytes # (Manual) POC ABG pH ABG pH POC ABG pCO2 POC ABG pO2 ABG pO2 ABG HCO3 ABG Base Excess ABG Hemoglobin Oxyhemoglobin Sodium Potassium Chloride Carbon Dioxide BUN Creatinine Glucose POC Glucose 131 H 193 H Lactic Acid Calcium AST Alkaline Phosphatase Albumin Urine WBC (Auto) 53.0 H 01/15/17 01/15/17 01/15/17 05:26 11:49 17:47 WBC RBC Hgb Hct MCV MCH RDW Plt Count Lymph % (Auto) Iron % (Auto) Eos % (Auto) Seg Neutrophils % Seg Neuts % (Manual) Lymphocytes % (Manual) Seg Neutrophils # Seg Neutrophils # Man Lymphocytes # (Manual) POC ABG pH ABG pH POC ABG pCO2 POC ABG pO2 ABG pO2 ABG HCO3 ABG Base Excess ABG Hemoglobin Oxyhemoglobin Sodium Potassium Chloride Carbon Dioxide BUN Creatinine Glucose POC Glucose 215 H 121 H 211 H Lactic Acid Calcium AST Alkaline Phosphatase Albumin Urine WBC (Auto) 01/15/17 01/16/17 01/16/17 21:33 04:30 05:28 WBC RBC Hgb Hct MCV MCH RDW Plt Count Lymph % (Auto) Iron % (Auto) Eos % (Auto) Seg Neutrophils % Seg Neuts % (Manual) Lymphocytes % (Manual) Seg Neutrophils # Seg Neutrophils # Man Lymphocytes # (Manual) POC ABG pH ABG pH 7.457 H POC ABG pCO2 POC ABG pO2 ABG pO2 55.1 L ABG HCO3 19.4 L ABG Base Excess -4.0 L ABG Hemoglobin 6.8 L Oxyhemoglobin 94.9 L Sodium Potassium Chloride Carbon Dioxide BUN Creatinine Glucose POC Glucose 275 H 271 H Lactic Acid Calcium AST Alkaline Phosphatase Albumin Urine WBC (Auto) 01/16/17 01/16/17 01/17/17 13:45 21:39 04:10 WBC 4.4 L RBC 2.98 L Hgb 7.7 L Hct 23.3 L MCV 78 L MCH 26 L RDW 18.1 H Plt Count Lymph % (Auto) Iron % (Auto) Eos % (Auto) Seg Neutrophils % Seg Neuts % (Manual) Lymphocytes % (Manual) Seg Neutrophils # Seg Neutrophils # Man Lymphocytes # (Manual) POC ABG pH ABG pH POC ABG pCO2 POC ABG pO2 ABG pO2 ABG HCO3 ABG Base Excess ABG Hemoglobin Oxyhemoglobin Sodium Potassium Chloride Carbon Dioxide BUN Creatinine Glucose POC Glucose 236 H 258 H Lactic Acid Calcium AST Alkaline Phosphatase Albumin Urine WBC (Auto) 01/17/17 01/17/17 01/17/17 04:10 04:35 12:23 WBC RBC Hgb Hct MCV MCH RDW Plt Count Lymph % (Auto) Iron % (Auto) Eos % (Auto) Seg Neutrophils % Seg Neuts % (Manual) Lymphocytes % (Manual) Seg Neutrophils # Seg Neutrophils # Man Lymphocytes # (Manual) POC ABG pH ABG pH POC ABG pCO2 POC ABG pO2 ABG pO2 160.3 H ABG HCO3 ABG Base Excess -2.3 L ABG Hemoglobin 7.9 L Oxyhemoglobin Sodium Potassium 3.3 L Chloride 108.7 H Carbon Dioxide 20 L BUN 8 L Creatinine Glucose 202 H POC Glucose 321 H Lactic Acid Calcium 7.6 L AST Alkaline Phosphatase Albumin Urine WBC (Auto) 01/17/17 01/18/17 01/18/17 16:01 05:07 12:09 WBC RBC Hgb Hct MCV MCH RDW Plt Count Lymph % (Auto) Iron % (Auto) Eos % (Auto) Seg Neutrophils % Seg Neuts % (Manual) Lymphocytes % (Manual) Seg Neutrophils # Seg Neutrophils # Man Lymphocytes # (Manual) POC ABG pH ABG pH POC ABG pCO2 POC ABG pO2 ABG pO2 ABG HCO3 ABG Base Excess ABG Hemoglobin Oxyhemoglobin Sodium Potassium Chloride Carbon Dioxide BUN Creatinine Glucose POC Glucose 239 H 155 H 203 H Lactic Acid Calcium AST Alkaline Phosphatase Albumin Urine WBC (Auto) 01/18/17 01/18/17 01/19/17 17:54 23:43 04:28 WBC RBC Hgb Hct MCV MCH RDW Plt Count Lymph % (Auto) Iron % (Auto) Eos % (Auto) Seg Neutrophils % Seg Neuts % (Manual) Lymphocytes % (Manual) Seg Neutrophils # Seg Neutrophils # Man Lymphocytes # (Manual) POC ABG pH ABG pH POC ABG pCO2 POC ABG pO2 ABG pO2 ABG HCO3 ABG Base Excess ABG Hemoglobin Oxyhemoglobin Sodium Potassium Chloride Carbon Dioxide BUN Creatinine Glucose POC Glucose 132 H 125 H 182 H Lactic Acid Calcium AST Alkaline Phosphatase Albumin Urine WBC (Auto) 01/19/17 01/19/17 01/20/17 12:11 17:23 00:12 WBC RBC Hgb Hct MCV MCH RDW Plt Count Lymph % (Auto) Iron % (Auto) Eos % (Auto) Seg Neutrophils % Seg Neuts % (Manual) Lymphocytes % (Manual) Seg Neutrophils # Seg Neutrophils # Man Lymphocytes # (Manual) POC ABG pH ABG pH POC ABG pCO2 POC ABG pO2 ABG pO2 ABG HCO3 ABG Base Excess ABG Hemoglobin Oxyhemoglobin Sodium Potassium Chloride Carbon Dioxide BUN Creatinine Glucose POC Glucose 153 H 66 L 139 H Lactic Acid Calcium AST Alkaline Phosphatase Albumin Urine WBC (Auto) 01/20/17 01/20/17 01/20/17 05:44 11:48 17:42 WBC RBC Hgb Hct MCV MCH RDW Plt Count Lymph % (Auto) Iron % (Auto) Eos % (Auto) Seg Neutrophils % Seg Neuts % (Manual) Lymphocytes % (Manual) Seg Neutrophils # Seg Neutrophils # Man Lymphocytes # (Manual) POC ABG pH ABG pH POC ABG pCO2 POC ABG pO2 ABG pO2 ABG HCO3 ABG Base Excess ABG Hemoglobin Oxyhemoglobin Sodium Potassium Chloride Carbon Dioxide BUN Creatinine Glucose POC Glucose 176 H 218 H 132 H Lactic Acid Calcium AST Alkaline Phosphatase Albumin Urine WBC (Auto) 01/20/17 01/21/17 01/21/17 23:43 05:34 11:17 WBC RBC Hgb Hct MCV MCH RDW Plt Count Lymph % (Auto) Iron % (Auto) Eos % (Auto) Seg Neutrophils % Seg Neuts % (Manual) Lymphocytes % (Manual) Seg Neutrophils # Seg Neutrophils # Man Lymphocytes # (Manual) POC ABG pH ABG pH POC ABG pCO2 POC ABG pO2 ABG pO2 ABG HCO3 ABG Base Excess ABG Hemoglobin Oxyhemoglobin Sodium Potassium Chloride Carbon Dioxide BUN Creatinine Glucose POC Glucose 178 H 106 H 213 H Lactic Acid Calcium AST Alkaline Phosphatase Albumin Urine WBC (Auto) 01/21/17 01/22/17 01/22/17 23:37 04:00 04:00 WBC RBC 3.26 L Hgb 8.3 L Hct 25.5 L MCV 78 L MCH 25 L RDW 17.9 H Plt Count Lymph % (Auto) Iron % (Auto) 7.9 H Eos % (Auto) 6.2 H Seg Neutrophils % Seg Neuts % (Manual) Lymphocytes % (Manual) Seg Neutrophils # Seg Neutrophils # Man Lymphocytes # (Manual) POC ABG pH ABG pH POC ABG pCO2 POC ABG pO2 ABG pO2 ABG HCO3 ABG Base Excess ABG Hemoglobin Oxyhemoglobin Sodium Potassium Chloride 95.5 L Carbon Dioxide 31 H D BUN Creatinine Glucose 134 H POC Glucose 140 H Lactic Acid Calcium AST 44 H Alkaline Phosphatase 379 H Albumin 2.7 L Urine WBC (Auto) 01/22/17 01/22/17 01/22/17 04:58 12:12 18:12 WBC RBC Hgb Hct MCV MCH RDW Plt Count Lymph % (Auto) Iron % (Auto) Eos % (Auto) Seg Neutrophils % Seg Neuts % (Manual) Lymphocytes % (Manual) Seg Neutrophils # Seg Neutrophils # Man Lymphocytes # (Manual) POC ABG pH ABG pH POC ABG pCO2 POC ABG pO2 ABG pO2 ABG HCO3 ABG Base Excess ABG Hemoglobin Oxyhemoglobin Sodium Potassium Chloride Carbon Dioxide BUN Creatinine Glucose POC Glucose 146 H 255 H 182 H Lactic Acid Calcium AST Alkaline Phosphatase Albumin Urine WBC (Auto) 01/22/17 01/23/17 01/23/17 23:39 04:43 12:12 WBC RBC Hgb Hct MCV MCH RDW Plt Count Lymph % (Auto) Iron % (Auto) Eos % (Auto) Seg Neutrophils % Seg Neuts % (Manual) Lymphocytes % (Manual) Seg Neutrophils # Seg Neutrophils # Man Lymphocytes # (Manual) POC ABG pH ABG pH POC ABG pCO2 POC ABG pO2 ABG pO2 ABG HCO3 ABG Base Excess ABG Hemoglobin Oxyhemoglobin Sodium Potassium Chloride Carbon Dioxide BUN Creatinine Glucose POC Glucose 134 H 218 H 128 H Lactic Acid Calcium AST Alkaline Phosphatase Albumin Urine WBC (Auto) 01/23/17 01/24/17 01/24/17 17:36 00:08 05:16 WBC RBC Hgb Hct MCV MCH RDW Plt Count Lymph % (Auto) Iron % (Auto) Eos % (Auto) Seg Neutrophils % Seg Neuts % (Manual) Lymphocytes % (Manual) Seg Neutrophils # Seg Neutrophils # Man Lymphocytes # (Manual) POC ABG pH ABG pH POC ABG pCO2 POC ABG pO2 ABG pO2 ABG HCO3 ABG Base Excess ABG Hemoglobin Oxyhemoglobin Sodium Potassium Chloride Carbon Dioxide BUN Creatinine Glucose POC Glucose 156 H 129 H 169 H Lactic Acid Calcium AST Alkaline Phosphatase Albumin Urine WBC (Auto) 01/24/17 01/24/17 01/24/17 11:40 17:43 23:23 WBC RBC Hgb Hct MCV MCH RDW Plt Count Lymph % (Auto) Iron % (Auto) Eos % (Auto) Seg Neutrophils % Seg Neuts % (Manual) Lymphocytes % (Manual) Seg Neutrophils # Seg Neutrophils # Man Lymphocytes # (Manual) POC ABG pH ABG pH POC ABG pCO2 POC ABG pO2 ABG pO2 ABG HCO3 ABG Base Excess ABG Hemoglobin Oxyhemoglobin Sodium Potassium Chloride Carbon Dioxide BUN Creatinine Glucose POC Glucose 187 H 215 H 222 H Lactic Acid Calcium AST Alkaline Phosphatase Albumin Urine WBC (Auto) 01/25/17 01/25/17 01/25/17 04:56 11:52 17:37 WBC RBC Hgb Hct MCV MCH RDW Plt Count Lymph % (Auto) Iron % (Auto) Eos % (Auto) Seg Neutrophils % Seg Neuts % (Manual) Lymphocytes % (Manual) Seg Neutrophils # Seg Neutrophils # Man Lymphocytes # (Manual) POC ABG pH ABG pH POC ABG pCO2 POC ABG pO2 ABG pO2 ABG HCO3 ABG Base Excess ABG Hemoglobin Oxyhemoglobin Sodium Potassium Chloride Carbon Dioxide BUN Creatinine Glucose POC Glucose 210 H 284 H 218 H Lactic Acid Calcium AST Alkaline Phosphatase Albumin Urine WBC (Auto) 01/26/17 01/26/17 01/26/17 00:02 05:33 12:17 WBC RBC Hgb Hct MCV MCH RDW Plt Count Lymph % (Auto) Iron % (Auto) Eos % (Auto) Seg Neutrophils % Seg Neuts % (Manual) Lymphocytes % (Manual) Seg Neutrophils # Seg Neutrophils # Man Lymphocytes # (Manual) POC ABG pH ABG pH POC ABG pCO2 POC ABG pO2 ABG pO2 ABG HCO3 ABG Base Excess ABG Hemoglobin Oxyhemoglobin Sodium Potassium Chloride Carbon Dioxide BUN Creatinine Glucose POC Glucose 192 H 199 H 227 H Lactic Acid Calcium AST Alkaline Phosphatase Albumin Urine WBC (Auto) 01/26/17 01/26/17 01/27/17 17:50 23:57 05:31 WBC RBC Hgb Hct MCV MCH RDW Plt Count Lymph % (Auto) Iron % (Auto) Eos % (Auto) Seg Neutrophils % Seg Neuts % (Manual) Lymphocytes % (Manual) Seg Neutrophils # Seg Neutrophils # Man Lymphocytes # (Manual) POC ABG pH ABG pH POC ABG pCO2 POC ABG pO2 ABG pO2 ABG HCO3 ABG Base Excess ABG Hemoglobin Oxyhemoglobin Sodium Potassium Chloride Carbon Dioxide BUN Creatinine Glucose POC Glucose 229 H 186 H 285 H Lactic Acid Calcium AST Alkaline Phosphatase Albumin Urine WBC (Auto) 01/27/17 01/27/17 01/27/17 11:42 17:47 23:58 WBC RBC Hgb Hct MCV MCH RDW Plt Count Lymph % (Auto) Iron % (Auto) Eos % (Auto) Seg Neutrophils % Seg Neuts % (Manual) Lymphocytes % (Manual) Seg Neutrophils # Seg Neutrophils # Man Lymphocytes # (Manual) POC ABG pH ABG pH POC ABG pCO2 POC ABG pO2 ABG pO2 ABG HCO3 ABG Base Excess ABG Hemoglobin Oxyhemoglobin Sodium Potassium Chloride Carbon Dioxide BUN Creatinine Glucose POC Glucose 260 H 329 H 225 H Lactic Acid Calcium AST Alkaline Phosphatase Albumin Urine WBC (Auto) 01/27/17 01/27/17 01/28/17 Unknown Unknown 03:44 WBC 12.1 H RBC 3.28 L 3.14 L Hgb 8.5 L 8.2 L Hct 25.5 L 24.1 L MCV 78 L 77 L MCH 26 L 26 L RDW 16.8 H 16.9 H Plt Count 601 H 567 H Lymph % (Auto) Iron % (Auto) Eos % (Auto) Seg Neutrophils % Seg Neuts % (Manual) Lymphocytes % (Manual) Seg Neutrophils # Seg Neutrophils # Man Lymphocytes # (Manual) POC ABG pH ABG pH POC ABG pCO2 POC ABG pO2 ABG pO2 ABG HCO3 ABG Base Excess ABG Hemoglobin Oxyhemoglobin Sodium 128 L Potassium 5.4 H Chloride 87.5 L Carbon Dioxide BUN 44 H Creatinine Glucose 250 H POC Glucose Lactic Acid Calcium AST Alkaline Phosphatase Albumin Urine WBC (Auto) 01/28/17 01/28/17 01/28/17 03:44 11:43 16:47 WBC RBC Hgb Hct MCV MCH RDW Plt Count Lymph % (Auto) Iron % (Auto) Eos % (Auto) Seg Neutrophils % Seg Neuts % (Manual) Lymphocytes % (Manual) Seg Neutrophils # Seg Neutrophils # Man Lymphocytes # (Manual) POC ABG pH ABG pH POC ABG pCO2 POC ABG pO2 ABG pO2 ABG HCO3 ABG Base Excess ABG Hemoglobin Oxyhemoglobin Sodium Potassium Chloride Carbon Dioxide BUN 42 H Creatinine Glucose 128 H POC Glucose 351 H 249 H Lactic Acid Calcium AST Alkaline Phosphatase Albumin Urine WBC (Auto) 01/28/17 01/29/17 01/29/17 17:52 05:25 05:25 WBC 13.6 H RBC 3.25 L Hgb 8.3 L Hct 25.1 L MCV 77 L MCH 26 L RDW 16.8 H Plt Count 514 H Lymph % (Auto) Iron % (Auto) Eos % (Auto) Seg Neutrophils % Seg Neuts % (Manual) Lymphocytes % (Manual) Seg Neutrophils # Seg Neutrophils # Man Lymphocytes # (Manual) POC ABG pH ABG pH POC ABG pCO2 POC ABG pO2 ABG pO2 ABG HCO3 ABG Base Excess ABG Hemoglobin Oxyhemoglobin Sodium Potassium Chloride 97.8 L Carbon Dioxide BUN 34 H Creatinine Glucose 222 H POC Glucose Lactic Acid Calcium AST Alkaline Phosphatase Albumin Urine WBC (Auto) > 182.0 H 01/29/17 01/29/17 01/29/17 09:32 11:56 18:11 WBC RBC Hgb Hct MCV MCH RDW Plt Count Lymph % (Auto) Iron % (Auto) Eos % (Auto) Seg Neutrophils % Seg Neuts % (Manual) Lymphocytes % (Manual) Seg Neutrophils # Seg Neutrophils # Man Lymphocytes # (Manual) POC ABG pH ABG pH POC ABG pCO2 POC ABG pO2 ABG pO2 ABG HCO3 ABG Base Excess ABG Hemoglobin Oxyhemoglobin Sodium Potassium Chloride Carbon Dioxide BUN Creatinine Glucose POC Glucose 261 H 215 H Lactic Acid 2.50 H* Calcium AST Alkaline Phosphatase Albumin Urine WBC (Auto) 01/29/17 01/30/17 01/30/17 23:55 05:31 05:31 WBC 15.2 H RBC 3.09 L Hgb 7.9 L Hct 23.9 L MCV 77 L MCH 26 L RDW 16.9 H Plt Count 569 H Lymph % (Auto) Iron % (Auto) Eos % (Auto) Seg Neutrophils % Seg Neuts % (Manual) Lymphocytes % (Manual) Seg Neutrophils # Seg Neutrophils # Man Lymphocytes # (Manual) POC ABG pH ABG pH POC ABG pCO2 POC ABG pO2 ABG pO2 ABG HCO3 ABG Base Excess ABG Hemoglobin Oxyhemoglobin Sodium Potassium Chloride Carbon Dioxide BUN 24 H Creatinine Glucose 235 H POC Glucose 176 H Lactic Acid Calcium AST Alkaline Phosphatase Albumin Urine WBC (Auto) 01/30/17 01/30/17 01/30/17 05:34 11:38 17:58 WBC RBC Hgb Hct MCV MCH RDW Plt Count Lymph % (Auto) Iron % (Auto) Eos % (Auto) Seg Neutrophils % Seg Neuts % (Manual) Lymphocytes % (Manual) Seg Neutrophils # Seg Neutrophils # Man Lymphocytes # (Manual) POC ABG pH ABG pH POC ABG pCO2 POC ABG pO2 ABG pO2 ABG HCO3 ABG Base Excess ABG Hemoglobin Oxyhemoglobin Sodium Potassium Chloride Carbon Dioxide BUN Creatinine Glucose POC Glucose 243 H 298 H 208 H Lactic Acid Calcium AST Alkaline Phosphatase Albumin Urine WBC (Auto) 01/30/17 01/31/17 01/31/17 23:29 04:39 04:39 WBC 11.4 H RBC 3.22 L Hgb 8.2 L Hct 24.9 L MCV 78 L MCH 25 L RDW 17.2 H Plt Count 576 H Lymph % (Auto) Iron % (Auto) Eos % (Auto) Seg Neutrophils % Seg Neuts % (Manual) Lymphocytes % (Manual) Seg Neutrophils # Seg Neutrophils # Man Lymphocytes # (Manual) POC ABG pH ABG pH POC ABG pCO2 POC ABG pO2 ABG pO2 ABG HCO3 ABG Base Excess ABG Hemoglobin Oxyhemoglobin Sodium Potassium Chloride Carbon Dioxide BUN Creatinine 0.7 L Glucose 223 H POC Glucose 245 H Lactic Acid Calcium AST Alkaline Phosphatase Albumin Urine WBC (Auto) 01/31/17 01/31/17 01/31/17 05:57 12:23 17:41 WBC RBC Hgb Hct MCV MCH RDW Plt Count Lymph % (Auto) Iron % (Auto) Eos % (Auto) Seg Neutrophils % Seg Neuts % (Manual) Lymphocytes % (Manual) Seg Neutrophils # Seg Neutrophils # Man Lymphocytes # (Manual) POC ABG pH ABG pH POC ABG pCO2 POC ABG pO2 ABG pO2 ABG HCO3 ABG Base Excess ABG Hemoglobin Oxyhemoglobin Sodium Potassium Chloride Carbon Dioxide BUN Creatinine Glucose POC Glucose 264 H 252 H 208 H Lactic Acid Calcium AST Alkaline Phosphatase Albumin Urine WBC (Auto) 01/31/17 01/31/17 02/01/17 18:55 22:59 03:38 WBC RBC 2.81 L Hgb 7.4 L Hct 22.1 L MCV 79 L MCH 27 L RDW 17.0 H Plt Count 540 H Lymph % (Auto) Iron % (Auto) Eos % (Auto) Seg Neutrophils % Seg Neuts % (Manual) Lymphocytes % (Manual) Seg Neutrophils # Seg Neutrophils # Man Lymphocytes # (Manual) POC ABG pH ABG pH POC ABG pCO2 32.8 L POC ABG pO2 ABG pO2 ABG HCO3 ABG Base Excess ABG Hemoglobin Oxyhemoglobin Sodium Potassium Chloride Carbon Dioxide BUN Creatinine Glucose POC Glucose 40 L Lactic Acid Calcium AST Alkaline Phosphatase Albumin Urine WBC (Auto) 02/01/17 02/01/17 02/01/17 03:38 05:17 12:19 WBC RBC Hgb Hct MCV MCH RDW Plt Count Lymph % (Auto) Iron % (Auto) Eos % (Auto) Seg Neutrophils % Seg Neuts % (Manual) Lymphocytes % (Manual) Seg Neutrophils # Seg Neutrophils # Man Lymphocytes # (Manual) POC ABG pH ABG pH POC ABG pCO2 POC ABG pO2 ABG pO2 ABG HCO3 ABG Base Excess ABG Hemoglobin Oxyhemoglobin Sodium Potassium Chloride Carbon Dioxide 21 L BUN Creatinine 0.7 L Glucose POC Glucose 140 H 213 H Lactic Acid Calcium AST Alkaline Phosphatase Albumin Urine WBC (Auto) 02/01/17 02/01/17 02/02/17 16:44 23:59 05:14 WBC RBC Hgb Hct MCV MCH RDW Plt Count Lymph % (Auto) Iron % (Auto) Eos % (Auto) Seg Neutrophils % Seg Neuts % (Manual) Lymphocytes % (Manual) Seg Neutrophils # Seg Neutrophils # Man Lymphocytes # (Manual) POC ABG pH ABG pH POC ABG pCO2 POC ABG pO2 ABG pO2 ABG HCO3 ABG Base Excess ABG Hemoglobin Oxyhemoglobin Sodium Potassium Chloride Carbon Dioxide BUN Creatinine Glucose POC Glucose 172 H 181 H 194 H Lactic Acid Calcium AST Alkaline Phosphatase Albumin Urine WBC (Auto) 02/02/17 02/02/17 02/02/17 11:24 11:46 11:46 WBC RBC 2.94 L Hgb 7.5 L Hct 23.0 L MCV 78 L MCH 25 L RDW 16.9 H Plt Count 520 H Lymph % (Auto) Iron % (Auto) Eos % (Auto) Seg Neutrophils % Seg Neuts % (Manual) Lymphocytes % (Manual) Seg Neutrophils # Seg Neutrophils # Man Lymphocytes # (Manual) POC ABG pH ABG pH POC ABG pCO2 POC ABG pO2 ABG pO2 ABG HCO3 ABG Base Excess ABG Hemoglobin Oxyhemoglobin Sodium Potassium Chloride Carbon Dioxide BUN Creatinine 0.6 L Glucose 189 H POC Glucose 209 H Lactic Acid Calcium 8.1 L AST Alkaline Phosphatase Albumin Urine WBC (Auto) 02/02/17 02/02/17 02/03/17 17:47 23:32 05:53 WBC RBC Hgb Hct MCV MCH RDW Plt Count Lymph % (Auto) Iron % (Auto) Eos % (Auto) Seg Neutrophils % Seg Neuts % (Manual) Lymphocytes % (Manual) Seg Neutrophils # Seg Neutrophils # Man Lymphocytes # (Manual) POC ABG pH ABG pH POC ABG pCO2 POC ABG pO2 ABG pO2 ABG HCO3 ABG Base Excess ABG Hemoglobin Oxyhemoglobin Sodium Potassium Chloride Carbon Dioxide BUN Creatinine Glucose POC Glucose 147 H 176 H 224 H Lactic Acid Calcium AST Alkaline Phosphatase Albumin Urine WBC (Auto) 02/03/17 02/03/17 02/03/17 11:19 16:59 23:38 WBC RBC Hgb Hct MCV MCH RDW Plt Count Lymph % (Auto) Iron % (Auto) Eos % (Auto) Seg Neutrophils % Seg Neuts % (Manual) Lymphocytes % (Manual) Seg Neutrophils # Seg Neutrophils # Man Lymphocytes # (Manual) POC ABG pH ABG pH POC ABG pCO2 POC ABG pO2 ABG pO2 ABG HCO3 ABG Base Excess ABG Hemoglobin Oxyhemoglobin Sodium Potassium Chloride Carbon Dioxide BUN Creatinine Glucose POC Glucose 228 H 189 H 191 H Lactic Acid Calcium AST Alkaline Phosphatase Albumin Urine WBC (Auto) 02/04/17 02/04/17 02/04/17 05:45 11:20 17:20 WBC RBC Hgb Hct MCV MCH RDW Plt Count Lymph % (Auto) Iron % (Auto) Eos % (Auto) Seg Neutrophils % Seg Neuts % (Manual) Lymphocytes % (Manual) Seg Neutrophils # Seg Neutrophils # Man Lymphocytes # (Manual) POC ABG pH ABG pH POC ABG pCO2 POC ABG pO2 ABG pO2 ABG HCO3 ABG Base Excess ABG Hemoglobin Oxyhemoglobin Sodium Potassium Chloride Carbon Dioxide BUN Creatinine Glucose POC Glucose 251 H 243 H 163 H Lactic Acid Calcium AST Alkaline Phosphatase Albumin Urine WBC (Auto) 02/05/17 02/05/17 02/05/17 00:17 05:38 12:38 WBC RBC Hgb Hct MCV MCH RDW Plt Count Lymph % (Auto) Iron % (Auto) Eos % (Auto) Seg Neutrophils % Seg Neuts % (Manual) Lymphocytes % (Manual) Seg Neutrophils # Seg Neutrophils # Man Lymphocytes # (Manual) POC ABG pH ABG pH POC ABG pCO2 POC ABG pO2 ABG pO2 ABG HCO3 ABG Base Excess ABG Hemoglobin Oxyhemoglobin Sodium Potassium Chloride Carbon Dioxide BUN Creatinine Glucose POC Glucose 200 H 248 H 241 H Lactic Acid Calcium AST Alkaline Phosphatase Albumin Urine WBC (Auto) 02/05/17 02/05/17 02/06/17 16:29 23:56 05:30 WBC RBC Hgb Hct MCV MCH RDW Plt Count Lymph % (Auto) Iron % (Auto) Eos % (Auto) Seg Neutrophils % Seg Neuts % (Manual) Lymphocytes % (Manual) Seg Neutrophils # Seg Neutrophils # Man Lymphocytes # (Manual) POC ABG pH ABG pH POC ABG pCO2 POC ABG pO2 ABG pO2 ABG HCO3 ABG Base Excess ABG Hemoglobin Oxyhemoglobin Sodium Potassium Chloride Carbon Dioxide BUN Creatinine Glucose POC Glucose 257 H 258 H 120 H Lactic Acid Calcium AST Alkaline Phosphatase Albumin Urine WBC (Auto) 02/06/17 02/06/17 02/06/17 11:50 17:11 23:50 WBC RBC Hgb Hct MCV MCH RDW Plt Count Lymph % (Auto) Iron % (Auto) Eos % (Auto) Seg Neutrophils % Seg Neuts % (Manual) Lymphocytes % (Manual) Seg Neutrophils # Seg Neutrophils # Man Lymphocytes # (Manual) POC ABG pH ABG pH POC ABG pCO2 POC ABG pO2 ABG pO2 ABG HCO3 ABG Base Excess ABG Hemoglobin Oxyhemoglobin Sodium Potassium Chloride Carbon Dioxide BUN Creatinine Glucose POC Glucose 254 H 149 H 240 H Lactic Acid Calcium AST Alkaline Phosphatase Albumin Urine WBC (Auto) 02/07/17 02/07/17 02/07/17 05:22 11:15 18:33 WBC RBC Hgb Hct MCV MCH RDW Plt Count Lymph % (Auto) Iron % (Auto) Eos % (Auto) Seg Neutrophils % Seg Neuts % (Manual) Lymphocytes % (Manual) Seg Neutrophils # Seg Neutrophils # Man Lymphocytes # (Manual) POC ABG pH ABG pH POC ABG pCO2 POC ABG pO2 ABG pO2 ABG HCO3 ABG Base Excess ABG Hemoglobin Oxyhemoglobin Sodium Potassium Chloride Carbon Dioxide BUN Creatinine Glucose POC Glucose 258 H 239 H 176 H Lactic Acid Calcium AST Alkaline Phosphatase Albumin Urine WBC (Auto) 02/07/17 02/08/17 02/08/17 23:59 06:15 11:55 WBC RBC Hgb Hct MCV MCH RDW Plt Count Lymph % (Auto) Iron % (Auto) Eos % (Auto) Seg Neutrophils % Seg Neuts % (Manual) Lymphocytes % (Manual) Seg Neutrophils # Seg Neutrophils # Man Lymphocytes # (Manual) POC ABG pH ABG pH POC ABG pCO2 POC ABG pO2 ABG pO2 ABG HCO3 ABG Base Excess ABG Hemoglobin Oxyhemoglobin Sodium Potassium Chloride Carbon Dioxide BUN Creatinine Glucose POC Glucose 186 H 195 H 129 H Lactic Acid Calcium AST Alkaline Phosphatase Albumin Urine WBC (Auto) 02/08/17 02/08/17 02/09/17 16:55 23:51 05:51 WBC RBC Hgb Hct MCV MCH RDW Plt Count Lymph % (Auto) Iron % (Auto) Eos % (Auto) Seg Neutrophils % Seg Neuts % (Manual) Lymphocytes % (Manual) Seg Neutrophils # Seg Neutrophils # Man Lymphocytes # (Manual) POC ABG pH ABG pH POC ABG pCO2 POC ABG pO2 ABG pO2 ABG HCO3 ABG Base Excess ABG Hemoglobin Oxyhemoglobin Sodium Potassium Chloride Carbon Dioxide BUN Creatinine Glucose POC Glucose 246 H 262 H 295 H Lactic Acid Calcium AST Alkaline Phosphatase Albumin Urine WBC (Auto) 02/09/17 02/09/17 02/09/17 07:24 07:24 12:08 WBC 14.7 H RBC 3.39 L Hgb 8.9 L Hct 26.4 L MCV 78 L MCH 26 L RDW 18.4 H Plt Count 670 H Lymph % (Auto) 11.8 L Iron % (Auto) Eos % (Auto) Seg Neutrophils % 81.2 H Seg Neuts % (Manual) Lymphocytes % (Manual) Seg Neutrophils # 11.9 H Seg Neutrophils # Man Lymphocytes # (Manual) POC ABG pH ABG pH POC ABG pCO2 POC ABG pO2 ABG pO2 ABG HCO3 ABG Base Excess ABG Hemoglobin Oxyhemoglobin Sodium Potassium Chloride 95.5 L Carbon Dioxide BUN 52 H Creatinine Glucose 277 H POC Glucose 236 H Lactic Acid Calcium AST Alkaline Phosphatase Albumin Urine WBC (Auto) 02/09/17 02/10/17 02/10/17 18:39 00:01 05:44 WBC RBC Hgb Hct MCV MCH RDW Plt Count Lymph % (Auto) Iron % (Auto) Eos % (Auto) Seg Neutrophils % Seg Neuts % (Manual) Lymphocytes % (Manual) Seg Neutrophils # Seg Neutrophils # Man Lymphocytes # (Manual) POC ABG pH ABG pH POC ABG pCO2 POC ABG pO2 ABG pO2 ABG HCO3 ABG Base Excess ABG Hemoglobin Oxyhemoglobin Sodium Potassium Chloride Carbon Dioxide BUN Creatinine Glucose POC Glucose 151 H 210 H 201 H Lactic Acid Calcium AST Alkaline Phosphatase Albumin Urine WBC (Auto) 02/10/17 02/10/17 02/10/17 11:21 17:29 23:56 WBC RBC Hgb Hct MCV MCH RDW Plt Count Lymph % (Auto) Iron % (Auto) Eos % (Auto) Seg Neutrophils % Seg Neuts % (Manual) Lymphocytes % (Manual) Seg Neutrophils # Seg Neutrophils # Man Lymphocytes # (Manual) POC ABG pH ABG pH POC ABG pCO2 POC ABG pO2 ABG pO2 ABG HCO3 ABG Base Excess ABG Hemoglobin Oxyhemoglobin Sodium Potassium Chloride Carbon Dioxide BUN Creatinine Glucose POC Glucose 233 H 167 H 191 H Lactic Acid Calcium AST Alkaline Phosphatase Albumin Urine WBC (Auto) 02/11/17 02/11/17 02/11/17 05:24 12:25 17:03 WBC RBC Hgb Hct MCV MCH RDW Plt Count Lymph % (Auto) Iron % (Auto) Eos % (Auto) Seg Neutrophils % Seg Neuts % (Manual) Lymphocytes % (Manual) Seg Neutrophils # Seg Neutrophils # Man Lymphocytes # (Manual) POC ABG pH ABG pH POC ABG pCO2 POC ABG pO2 ABG pO2 ABG HCO3 ABG Base Excess ABG Hemoglobin Oxyhemoglobin Sodium Potassium Chloride Carbon Dioxide BUN Creatinine Glucose POC Glucose 135 H 275 H 172 H Lactic Acid Calcium AST Alkaline Phosphatase Albumin Urine WBC (Auto) 02/11/17 02/12/17 02/12/17 23:59 05:39 11:33 WBC RBC Hgb Hct MCV MCH RDW Plt Count Lymph % (Auto) Iron % (Auto) Eos % (Auto) Seg Neutrophils % Seg Neuts % (Manual) Lymphocytes % (Manual) Seg Neutrophils # Seg Neutrophils # Man Lymphocytes # (Manual) POC ABG pH ABG pH POC ABG pCO2 POC ABG pO2 ABG pO2 ABG HCO3 ABG Base Excess ABG Hemoglobin Oxyhemoglobin Sodium Potassium Chloride Carbon Dioxide BUN Creatinine Glucose POC Glucose 215 H 261 H 217 H Lactic Acid Calcium AST Alkaline Phosphatase Albumin Urine WBC (Auto) 02/12/17 02/13/17 02/13/17 17:55 00:25 06:46 WBC RBC Hgb Hct MCV MCH RDW Plt Count Lymph % (Auto) Iron % (Auto) Eos % (Auto) Seg Neutrophils % Seg Neuts % (Manual) Lymphocytes % (Manual) Seg Neutrophils # Seg Neutrophils # Man Lymphocytes # (Manual) POC ABG pH ABG pH POC ABG pCO2 POC ABG pO2 ABG pO2 ABG HCO3 ABG Base Excess ABG Hemoglobin Oxyhemoglobin Sodium Potassium Chloride Carbon Dioxide BUN Creatinine Glucose POC Glucose 172 H 207 H 219 H Lactic Acid Calcium AST Alkaline Phosphatase Albumin Urine WBC (Auto) 02/13/17 02/13/17 02/13/17 11:26 17:12 23:44 WBC RBC Hgb Hct MCV MCH RDW Plt Count Lymph % (Auto) Iron % (Auto) Eos % (Auto) Seg Neutrophils % Seg Neuts % (Manual) Lymphocytes % (Manual) Seg Neutrophils # Seg Neutrophils # Man Lymphocytes # (Manual) POC ABG pH ABG pH POC ABG pCO2 POC ABG pO2 ABG pO2 ABG HCO3 ABG Base Excess ABG Hemoglobin Oxyhemoglobin Sodium Potassium Chloride Carbon Dioxide BUN Creatinine Glucose POC Glucose 231 H 190 H 256 H Lactic Acid Calcium AST Alkaline Phosphatase Albumin Urine WBC (Auto) 02/14/17 02/14/17 02/14/17 05:44 12:21 17:57 WBC RBC Hgb Hct MCV MCH RDW Plt Count Lymph % (Auto) Iron % (Auto) Eos % (Auto) Seg Neutrophils % Seg Neuts % (Manual) Lymphocytes % (Manual) Seg Neutrophils # Seg Neutrophils # Man Lymphocytes # (Manual) POC ABG pH ABG pH POC ABG pCO2 POC ABG pO2 ABG pO2 ABG HCO3 ABG Base Excess ABG Hemoglobin Oxyhemoglobin Sodium Potassium Chloride Carbon Dioxide BUN Creatinine Glucose POC Glucose 184 H 233 H 155 H Lactic Acid Calcium AST Alkaline Phosphatase Albumin Urine WBC (Auto) 02/14/17 02/15/17 02/15/17 23:18 05:33 11:45 WBC RBC Hgb Hct MCV MCH RDW Plt Count Lymph % (Auto) Iron % (Auto) Eos % (Auto) Seg Neutrophils % Seg Neuts % (Manual) Lymphocytes % (Manual) Seg Neutrophils # Seg Neutrophils # Man Lymphocytes # (Manual) POC ABG pH ABG pH POC ABG pCO2 POC ABG pO2 ABG pO2 ABG HCO3 ABG Base Excess ABG Hemoglobin Oxyhemoglobin Sodium Potassium Chloride Carbon Dioxide BUN Creatinine Glucose POC Glucose 165 H 239 H 130 H Lactic Acid Calcium AST Alkaline Phosphatase Albumin Urine WBC (Auto) 02/15/17 02/16/17 02/16/17 17:20 00:14 05:09 WBC RBC Hgb Hct MCV MCH RDW Plt Count Lymph % (Auto) Iron % (Auto) Eos % (Auto) Seg Neutrophils % Seg Neuts % (Manual) Lymphocytes % (Manual) Seg Neutrophils # Seg Neutrophils # Man Lymphocytes # (Manual) POC ABG pH ABG pH POC ABG pCO2 POC ABG pO2 ABG pO2 ABG HCO3 ABG Base Excess ABG Hemoglobin Oxyhemoglobin Sodium Potassium Chloride Carbon Dioxide BUN Creatinine Glucose POC Glucose 189 H 197 H 226 H Lactic Acid Calcium AST Alkaline Phosphatase Albumin Urine WBC (Auto)
[2017-02-16] MEDS: HEPARIN SUB-Q SCH ×2 (11:26→21:50)
--- NOTE | 2017-02-16 19:33 | Progress Note ---
Assessment and Plan Assessment and plan: 51 yo male with DM, HTN, CKD, alcohol abuse and history of delirium tremens, found down and unresponsive; upon EMS arrival, serum glucose found to be 21 and insulin syringes around; unable to protect airway, so intubated; metabolic abnormalities corrected, but he remained unresponsive. family services specialist unable to locate any family. Ethics committee decided to make him DO NOT RESUSCITATE, but was not willing to sign for withdrawal of ventilator. Further care felt to be futile and would only prolong potential suffering without affecting ultimate outcome. Currently [facility]. Awaiting guardianship from the state. 1. Acute hypoxic respiratory failure On ventilator Trach not warranted given his extremely poor prognosis 2. Hypoglycemic brain injury 3. Vegetative state 4. Hypothyroidism Free T4 normal, so myxedema, less likely 5. Poor prognosis. Made DO NOT RESUSCITATE and [facility] by ethics committee. Awaiting state guardianship History Interval history: comatose, unresponsive no events Hospitalist Physical - Constitutional Vitals: Temp Pulse Resp BP Pulse Ox 98.4 F 65 13 129/80 100 02/16/17 16:00 02/16/17 19:12 02/16/17 18:00 02/16/17 19:12 02/16/17 19:12 General appearance: Present: no acute distress, other (comatose, unresponsive) - Neck Neck: Absent: enlarged thyroid, masses or JVD, carotid bruits - Respiratory Respiratory effort: other (on vent) Respiratory: bilateral: CTA, negative: rhonchi, wheezing - Cardiovascular Rhythm: regular Heart Sounds: Present: S1 & S2. Absent: systolic murmur - Extremities Extremities: no ischemia - Abdominal General gastrointestinal: soft, non-distended - Psychiatric Psychiatric: other (comatose, unresponsive) Results - Labs CBC & Chem 7: 02/09/17 07:24 02/09/17 07:24 Labs: Laboratory Last Values WBC 14.7 K/mm3 (4.5-11.0) H 02/09/17 07:24 RBC 3.39 M/mm3 (3.65-5.03) L 02/09/17 07:24 Hgb 8.9 gm/dl (11.8-15.2) L 02/09/17 07:24 Hct 26.4 % (35.5-45.6) L 02/09/17 07:24 MCV 78 fl (84-94) L 02/09/17 07:24 MCH 26 pg (28-32) L 02/09/17 07:24 MCHC 34 % (32-34) 02/09/17 07:24 RDW 18.4 % (13.2-15.2) H 02/09/17 07:24 Plt Count 670 K/mm3 (140-440) H 02/09/17 07:24 Lymph % (Auto) 11.8 % (13.4-35.0) L 02/09/17 07:24 Gregory % (Auto) 4.7 % (0.0-7.3) 02/09/17 07:24 Eos % (Auto) 1.9 % (0.0-4.3) 02/09/17 07:24 Baso % (Auto) 0.4 % (0.0-1.8) 02/09/17 07:24 Lymph # 1.7 K/mm3 (1.2-5.4) 02/09/17 07:24 Gregory # 0.7 K/mm3 (0.0-0.8) 02/09/17 07:24 Eos # 0.3 K/mm3 (0.0-0.4) 02/09/17 07:24 Baso # 0.1 K/mm3 (0.0-0.1) 02/09/17 07:24 Add Manual Diff Complete 01/10/17 04:30 Total Counted 100 01/10/17 04:30 Seg Neutrophils % 81.2 % (40.0-70.0) H 02/09/17 07:24 Seg Neuts % (Manual) 88.0 % (40.0-70.0) H 01/10/17 04:30 Band Neutrophils % 7.0 % 01/10/17 04:30 Lymphocytes % (Manual) 4.0 % (13.4-35.0) L 01/10/17 04:30 Reactive Lymphs % (Man) 0 % 01/10/17 04:30 Monocytes % (Manual) 1.0 % (0.0-7.3) 01/10/17 04:30 Eosinophils % (Manual) 0 % (0.0-4.3) 01/10/17 04:30 Basophils % (Manual) 0 % (0.0-1.8) 01/10/17 04:30 Metamyelocytes % 0 % 01/10/17 04:30 Myelocytes % 0 % 01/10/17 04:30 Promyelocytes % 0 % 01/10/17 04:30 Blast Cells % 0 % 01/10/17 04:30 Nucleated RBC % Not Reportable 01/10/17 04:30 Seg Neutrophils # 11.9 K/mm3 (1.8-7.7) H 02/09/17 07:24 Seg Neutrophils # Man 21.2 K/mm3 (1.8-7.7) H 01/10/17 04:30 Band Neutrophils # 1.7 K/mm3 01/10/17 04:30 Lymphocytes # (Manual) 1.0 K/mm3 (1.2-5.4) L 01/10/17 04:30 Abs React Lymphs (Man) 0.0 K/mm3 01/10/17 04:30 Monocytes # (Manual) 0.2 K/mm3 (0.0-0.8) 01/10/17 04:30 Eosinophils # (Manual) 0.0 K/mm3 (0.0-0.4) 01/10/17 04:30 Basophils # (Manual) 0.0 K/mm3 (0.0-0.1) 01/10/17 04:30 Metamyelocytes # 0.0 K/mm3 01/10/17 04:30 Myelocytes # 0.0 K/mm3 01/10/17 04:30 Promyelocytes # 0.0 K/mm3 01/10/17 04:30 Blast Cells # 0.0 K/mm3 01/10/17 04:30 WBC Morphology Not Reportable 01/10/17 04:30 Hypersegmented Neuts Not Reportable 01/10/17 04:30 Hyposegmented Neuts Not Reportable 01/10/17 04:30 Hypogranular Neuts Not Reportable 01/10/17 04:30 Smudge Cells Not Reportable 01/10/17 04:30 Toxic Granulation Not Reportable 01/10/17 04:30 Toxic Vacuolation Not Reportable 01/10/17 04:30 Dohle Bodies Not Reportable 01/10/17 04:30 Pelger-Huet Anomaly Not Reportable 01/10/17 04:30 [place] Rods Not Reportable 01/10/17 04:30 Platelet Estimate Consistent w auto 01/10/17 04:30 Clumped Platelets Not Reportable 01/10/17 04:30 Plt Clumps, EDTA Not Reportable 01/10/17 04:30 Large Platelets Not Reportable 01/10/17 04:30 Giant Platelets Not Reportable 01/10/17 04:30 Platelet Satelliting Not Reportable 01/10/17 04:30 Plt Morphology Comment Not Reportable 01/10/17 04:30 RBC Morphology Not Reportable 01/10/17 04:30 Dimorphic RBCs Not Reportable 01/10/17 04:30 Polychromasia Not Reportable 01/10/17 04:30 Hypochromasia 1+ 01/10/17 04:30 Poikilocytosis Not Reportable 01/10/17 04:30 Anisocytosis Not Reportable 01/10/17 04:30 Microcytosis Not Reportable 01/10/17 04:30 Macrocytosis Not Reportable 01/10/17 04:30 Spherocytes Not Reportable 01/10/17 04:30 Pappenheimer Bodies Not Reportable 01/10/17 04:30 Sickle Cells Not Reportable 01/10/17 04:30 Target Cells Not Reportable 01/10/17 04:30 Tear Drop Cells Not Reportable 01/10/17 04:30 Ovalocytes Not Reportable 01/10/17 04:30 Helmet Cells Not Reportable 01/10/17 04:30 [place] Bodies Not Reportable 01/10/17 04:30 [place] Rings Not Reportable 01/10/17 04:30 [place] Cells Not Reportable 01/10/17 04:30 Bite Cells Not Reportable 01/10/17 04:30 Crenated Cell Not Reportable 01/10/17 04:30 Elliptocytes Not Reportable 01/10/17 04:30 Acanthocytes (Spur) Not Reportable 01/10/17 04:30 Rouleaux Not Reportable 01/10/17 04:30 Hemoglobin C Crystals Not Reportable 01/10/17 04:30 Schistocytes Not Reportable 01/10/17 04:30 Malaria parasites Not Reportable 01/10/17 04:30 Kyle Bodies Not Reportable 01/10/17 04:30 Hem Pathologist Commnt No 01/10/17 04:30 PT 14.1 Sec. (12.2-14.9) 01/17/17 04:10 INR 1.04 (0.87-1.13) 01/17/17 04:10 APTT 36.6 Sec. (24.2-36.6) 01/17/17 04:10 POC ABG pH 7.442 (7.35-7.45) 01/31/17 18:55 ABG pH 7.420 pH Units (7.350-7.450) 01/17/17 04:35 POC ABG pCO2 32.8 (35-45) L 01/31/17 18:55 ABG pCO2 34.5 mm Hg 01/17/17 04:35 POC ABG pO2 82 (80-105) 01/31/17 18:55 ABG pO2 160.3 mm Hg (80.0-90.0) H 01/17/17 04:35 POC ABG HCO3 22.4 01/31/17 18:55 ABG HCO3 21.9 mmol/L (20.0-26.0) 01/17/17 04:35 POC ABG Total CO2 23 01/31/17 18:55 POC ABG O2 Sat 97 01/31/17 18:55 ABG O2 Saturation 99.0 % (95.0-99.0) 01/17/17 04:35 ABG O2 Content 11.1 (0.0-44) 01/17/17 04:35 POC ABG Base Excess -2 01/31/17 18:55 ABG Base Excess -2.3 mmol/L (-2.0-3.0) L 01/17/17 04:35 ABG Hemoglobin 7.9 gm/dl (14.0-18.0) L 01/17/17 04:35 ABG Carboxyhemoglobin 1.5 % (0.0-5.0) 01/17/17 04:35 ABG Methemoglobin 0.5 % (0.0-1.5) 01/17/17 04:35 VBG pH 7.284 (7.320-7.420) L 01/09/17 10:16 Oxyhemoglobin 97.1 % (95.0-99.0) 01/17/17 04:35 FiO2 25 % 01/31/17 18:55 Sodium 137 mmol/L (137-145) 02/09/17 07:24 Potassium 4.9 mmol/L (3.6-5.0) 02/09/17 07:24 Chloride 95.5 mmol/L (98-107) L 02/09/17 07:24 Carbon Dioxide 29 mmol/L (22-30) 02/09/17 07:24 Anion Gap 17 mmol/L 02/09/17 07:24 BUN 52 mg/dL (9-20) H 02/09/17 07:24 Creatinine 0.8 mg/dL (0.8-1.5) 02/09/17 07:24 Estimated GFR > 60 ml/min 02/09/17 07:24 BUN/Creatinine Ratio 65 % 02/09/17 07:24 Glucose 277 mg/dL (75-100) H 02/09/17 07:24 POC Glucose 178 (70-105) H 02/16/17 12:31 Lactic Acid 0.80 mmol/L (0.7-2.0) 01/30/17 11:49 Calcium 9.4 mg/dL (8.4-10.2) 02/09/17 07:24 Phosphorus 3.60 mg/dL (2.5-4.5) 01/22/17 04:00 Magnesium 2.10 mg/dL (1.7-2.3) 01/22/17 04:00 Total Bilirubin 0.30 mg/dL (0.1-1.2) 01/22/17 04:00 AST 44 units/L (5-40) H 01/22/17 04:00 ALT 23 units/L (7-56) 01/22/17 04:00 Alkaline Phosphatase 379 units/L (35-129) H 01/22/17 04:00 Ammonia 35.0 umol/L (25-60) 01/09/17 10:16 Total Creatine Kinase 135 units/L (55-170) 01/09/17 10:16 CK-MB (CK-2) 7.1 ng/mL (0.0-4.0) H 01/09/17 10:16 CK-MB (CK-2) Rel Index 5.2 (0-4) H 01/09/17 10:16 Troponin T < 0.010 ng/mL (0.00-0.029) 01/09/17 10:16 NT-Pro-B Natriuret Pep 602.9 pg/mL (0-900) 01/09/17 10:16 Total Protein 7.9 g/dL (6.3-8.2) 01/22/17 04:00 Albumin 2.7 g/dL (3.9-5) L 01/22/17 04:00 Albumin/Globulin Ratio 0.5 % 01/22/17 04:00 TSH 52.800 mlU/mL (0.270-4.200) H 01/09/17 10:16 Free T4 0.78 ng/dL (0.76-1.46) 01/09/17 10:16 Total Cortisol 54.8 mcg/dL () 01/09/17 16:19 Urine Color Yellow (Yellow) 01/28/17 17:52 Urine Turbidity Clear (Clear) 01/28/17 17:52 Urine pH 6.0 (5.0-7.0) 01/28/17 17:52 Ur Specific [place] 1.016 (1.003-1.030) 01/28/17 17:52 Urine Protein 100 mg/dl mg/dL (Negative) 01/28/17 17:52 Urine Glucose (UA) >=500 mg/dL (Negative) 01/28/17 17:52 Urine Ketones Neg mg/dL (Negative) 01/28/17 17:52 Urine Blood Sm (Negative) 01/28/17 17:52 Urine Nitrite Neg (Negative) 01/28/17 17:52 Urine Bilirubin Neg (Negative) 01/28/17 17:52 Urine Urobilinogen < 2.0 mg/dL (<2.0) 01/28/17 17:52 Ur Leukocyte Esterase Lg (Negative) 01/28/17 17:52 Urine WBC (Auto) > 182.0 /HPF (0.0-6.0) H 01/28/17 17:52 Urine RBC (Auto) 113.0 /HPF (0.0-6.0) 01/28/17 17:52 Urine Bacteria (Auto) 2+ /HPF (Negative) 01/28/17 17:52 Urine WBC Clumps 3+ /HPF 01/28/17 17:52 Urine Mucus Few /HPF 01/14/17 14:07 Urine Yeast (Budding) 3+ /HPF 01/14/17 14:07 Salicylates < 0.3 mg/dL (2.8-20.0) L 01/09/17 10:16 Urine Opiates Screen Presumptive negative 01/09/17 10:23 Urine Methadone Screen Presumptive negative 01/09/17 10:23 Acetaminophen < 15.0 ug/mL (10.0-30.0) 01/09/17 10:16 Ur Barbiturates Screen Presumptive negative 01/09/17 10:23 Ur Phencyclidine Scrn Presumptive negative 01/09/17 10:23 Ur Amphetamines Screen Presumptive negative 01/09/17 10:23 U Benzodiazepines Scrn Presumptive negative 01/09/17 10:23 Urine Cocaine Screen Presumptive negative 01/09/17 10:23 U Marijuana (THC) Screen Presumptive negative 01/09/17 10:23 Drugs of Abuse Note Disclamer 01/09/17 10:23 Plasma/Serum Alcohol < 0.01 gm% (0-0.07) 01/09/17 10:16
[2017-02-17] MEDS: D50W (25GM) Vial IV PRN (00:10)
[2017-02-17] MEDS: NOVOLOG SUB-Q SCH ×4 (00:18→22:00)
[2017-02-17] MEDS: SYNTHROID PO SCH (05:16)
[2017-02-17] MEDS: PEPCID PO SCH ×2 (10:09→22:19)
[2017-02-17] MEDS: NORMODYNE PO SCH ×2 (10:09→22:19)
[2017-02-17] MEDS: HEPARIN SUB-Q SCH ×2 (10:09→22:19)
[2017-02-17] MEDS: LEVEMIR (NF) SUB-Q SCH (10:10)
--- NOTE | 2017-02-17 11:37 | Progress Note ---
Assessment and Plan 51 y/o male found down, concern for sepsis and now encephalopathic requiring mechanical ventilation. No New recs for today. 1. continue supportive care 2. Spoke with Risk and the [employer] has requested that guardianship be persued. Dilemma is, once patient has been awarded guardianship, who will take him. Morally and ethically, given the prognosis provided by neurology, I do not feel placing a tracheostomy is the right thing to do. 3. Will change vitals and physical assessment by nursing to q12 hours 4. change accuchecks to q8 CCT 31 minutes. Subjective Date of service: 02/17/17 Principal diagnosis: Acute respiratory failure,encephalopathy Objective Vital Signs - 12hr 02/17/17 02/17/17 02/17/17 00:00 02:00 04:00 Temperature 100.3 F H 99.0 F Pulse Rate 60 56 L 59 L Pulse Rate [ 57 L 59 L From Monitor] Respiratory 13 13 12 Rate Blood Pressure 121/72 113/68 136/77 O2 Sat by Pulse 100 100 100 Oximetry 02/17/17 02/17/17 02/17/17 04:20 06:00 07:09 Temperature Pulse Rate 60 62 59 L Pulse Rate [ From Monitor] Respiratory 14 Rate Blood Pressure 136/77 114/73 114/73 O2 Sat by Pulse 100 100 100 Oximetry 02/17/17 02/17/17 02/17/17 07:49 08:00 10:09 Temperature 97.6 F Pulse Rate 63 Pulse Rate [ From Monitor] Respiratory 23 Rate Blood Pressure 137/81 132/85 O2 Sat by Pulse 100 Oximetry Constitutional: comatose, other (orally intubated, on vent) Eyes: non-icteric ENT: oropharynx moist Neck: supple Effort: normal Ascultation: Bilateral: clear, diminished breath sounds Cardiovascular: regular rate and rhythm (no mrg) Gastrointestinal: normoactive bowel sounds, soft, non-tender, non-distended Integumentary: normal Extremities: no cyanosis, no edema, pink and warm Neurologic: other (unresponsive, flaccid extremities) Psychiatric: other (unable to obtain) CBC and BMP: 02/09/17 07:24 02/09/17 07:24 ABG, PT/INR, D-dimer: ABG POC ABG pH 7.442 (7.35-7.45) 01/31/17 18:55 ABG pH 7.420 pH Units (7.350-7.450) 01/17/17 04:35 POC ABG pCO2 32.8 (35-45) L 01/31/17 18:55 ABG pCO2 34.5 mm Hg 01/17/17 04:35 POC ABG pO2 82 (80-105) 01/31/17 18:55 ABG pO2 160.3 mm Hg (80.0-90.0) H 01/17/17 04:35 POC ABG HCO3 22.4 01/31/17 18:55 POC ABG Total CO2 23 01/31/17 18:55 POC ABG O2 Sat 97 01/31/17 18:55 ABG O2 Saturation 99.0 % (95.0-99.0) 01/17/17 04:35 PT/INR, D-dimer PT 14.1 Sec. (12.2-14.9) 01/17/17 04:10 INR 1.04 (0.87-1.13) 01/17/17 04:10 Abnormal lab findings: Abnormal Labs 01/09/17 01/09/17 01/09/17 12:49 13:13 14:21 WBC RBC Hgb Hct MCV MCH RDW Plt Count Lymph % (Auto) [place] % (Auto) Eos % (Auto) Seg Neutrophils % Seg Neuts % (Manual) Lymphocytes % (Manual) Seg Neutrophils # Seg Neutrophils # Man Lymphocytes # (Manual) POC ABG pH ABG pH POC ABG pCO2 POC ABG pO2 ABG pO2 ABG HCO3 ABG Base Excess ABG Hemoglobin Oxyhemoglobin Sodium Potassium Chloride Carbon Dioxide BUN Creatinine Glucose POC Glucose < 40 L 128 H 65 L Lactic Acid Calcium AST Alkaline Phosphatase Albumin Urine WBC (Auto) 01/09/17 01/09/17 01/09/17 15:09 16:28 17:14 WBC RBC Hgb Hct MCV MCH RDW Plt Count Lymph % (Auto) [place] % (Auto) Eos % (Auto) Seg Neutrophils % Seg Neuts % (Manual) Lymphocytes % (Manual) Seg Neutrophils # Seg Neutrophils # Man Lymphocytes # (Manual) POC ABG pH ABG pH POC ABG pCO2 POC ABG pO2 ABG pO2 ABG HCO3 ABG Base Excess ABG Hemoglobin Oxyhemoglobin Sodium Potassium Chloride Carbon Dioxide BUN Creatinine Glucose POC Glucose 120 H 44 L 112 H Lactic Acid Calcium AST Alkaline Phosphatase Albumin Urine WBC (Auto) 01/10/17 01/10/17 01/10/17 04:30 04:30 05:41 WBC 24.1 H RBC 3.38 L Hgb 8.5 L Hct 26.0 L MCV 77 L MCH 25 L RDW 17.9 H Plt Count 474 H Lymph % (Auto) [place] % (Auto) Eos % (Auto) Seg Neutrophils % Seg Neuts % (Manual) 88.0 H Lymphocytes % (Manual) 4.0 L Seg Neutrophils # Seg Neutrophils # Man 21.2 H Lymphocytes # (Manual) 1.0 L POC ABG pH ABG pH POC ABG pCO2 POC ABG pO2 ABG pO2 ABG HCO3 ABG Base Excess ABG Hemoglobin Oxyhemoglobin Sodium Potassium Chloride Carbon Dioxide 17 L BUN 27 H Creatinine Glucose POC Glucose 68 L Lactic Acid Calcium 7.5 L AST Alkaline Phosphatase Albumin Urine WBC (Auto) 01/10/17 01/10/17 01/10/17 05:45 07:47 10:50 WBC RBC Hgb Hct MCV MCH RDW Plt Count Lymph % (Auto) [place] % (Auto) Eos % (Auto) Seg Neutrophils % Seg Neuts % (Manual) Lymphocytes % (Manual) Seg Neutrophils # Seg Neutrophils # Man Lymphocytes # (Manual) POC ABG pH ABG pH POC ABG pCO2 26.6 L POC ABG pO2 207 H ABG pO2 ABG HCO3 ABG Base Excess ABG Hemoglobin Oxyhemoglobin Sodium Potassium Chloride Carbon Dioxide BUN Creatinine Glucose POC Glucose 148 H 165 H Lactic Acid Calcium AST Alkaline Phosphatase Albumin Urine WBC (Auto) 01/10/17 01/10/17 01/10/17 13:41 20:20 21:39 WBC RBC Hgb Hct MCV MCH RDW Plt Count Lymph % (Auto) [place] % (Auto) Eos % (Auto) Seg Neutrophils % Seg Neuts % (Manual) Lymphocytes % (Manual) Seg Neutrophils # Seg Neutrophils # Man Lymphocytes # (Manual) POC ABG pH ABG pH POC ABG pCO2 POC ABG pO2 ABG pO2 ABG HCO3 ABG Base Excess ABG Hemoglobin Oxyhemoglobin Sodium Potassium Chloride Carbon Dioxide BUN Creatinine Glucose POC Glucose 114 H 150 H 175 H Lactic Acid Calcium AST Alkaline Phosphatase Albumin Urine WBC (Auto) 01/10/17 01/11/17 01/11/17 23:24 00:19 04:06 WBC RBC Hgb Hct MCV MCH RDW Plt Count Lymph % (Auto) [place] % (Auto) Eos % (Auto) Seg Neutrophils % Seg Neuts % (Manual) Lymphocytes % (Manual) Seg Neutrophils # Seg Neutrophils # Man Lymphocytes # (Manual) POC ABG pH 7.463 H ABG pH POC ABG pCO2 26.2 L POC ABG pO2 185 H ABG pO2 ABG HCO3 ABG Base Excess ABG Hemoglobin Oxyhemoglobin Sodium Potassium Chloride Carbon Dioxide BUN Creatinine Glucose POC Glucose 155 H 163 H Lactic Acid Calcium AST Alkaline Phosphatase Albumin Urine WBC (Auto) 01/11/17 01/11/17 01/11/17 05:20 05:20 06:21 WBC 15.2 H RBC 3.40 L Hgb 8.9 L Hct 26.3 L MCV 78 L MCH 26 L RDW 18.6 H Plt Count 462 H Lymph % (Auto) 13.2 L [place] % (Auto) Eos % (Auto) Seg Neutrophils % 80.8 H Seg Neuts % (Manual) Lymphocytes % (Manual) Seg Neutrophils # 12.3 H Seg Neutrophils # Man Lymphocytes # (Manual) POC ABG pH ABG pH POC ABG pCO2 POC ABG pO2 ABG pO2 ABG HCO3 ABG Base Excess ABG Hemoglobin Oxyhemoglobin Sodium Potassium 3.4 L Chloride 111.5 H Carbon Dioxide 17 L BUN Creatinine Glucose 147 H POC Glucose 139 H Lactic Acid Calcium 8.0 L AST Alkaline Phosphatase Albumin Urine WBC (Auto) 01/11/17 01/11/17 01/11/17 07:57 11:46 16:50 WBC RBC Hgb Hct MCV MCH RDW Plt Count Lymph % (Auto) [place] % (Auto) Eos % (Auto) Seg Neutrophils % Seg Neuts % (Manual) Lymphocytes % (Manual) Seg Neutrophils # Seg Neutrophils # Man Lymphocytes # (Manual) POC ABG pH ABG pH POC ABG pCO2 POC ABG pO2 ABG pO2 ABG HCO3 ABG Base Excess ABG Hemoglobin Oxyhemoglobin Sodium Potassium Chloride Carbon Dioxide BUN Creatinine Glucose POC Glucose 188 H 199 H 235 H Lactic Acid Calcium AST Alkaline Phosphatase Albumin Urine WBC (Auto) 01/11/17 01/12/17 01/12/17 23:15 05:02 06:56 WBC RBC Hgb Hct MCV MCH RDW Plt Count Lymph % (Auto) [place] % (Auto) Eos % (Auto) Seg Neutrophils % Seg Neuts % (Manual) Lymphocytes % (Manual) Seg Neutrophils # Seg Neutrophils # Man Lymphocytes # (Manual) POC ABG pH ABG pH POC ABG pCO2 28.0 L POC ABG pO2 178 H ABG pO2 ABG HCO3 ABG Base Excess ABG Hemoglobin Oxyhemoglobin Sodium Potassium Chloride Carbon Dioxide BUN Creatinine Glucose POC Glucose 155 H 119 H Lactic Acid Calcium AST Alkaline Phosphatase Albumin Urine WBC (Auto) 01/12/17 01/13/17 01/13/17 14:50 03:37 03:37 WBC RBC 3.61 L Hgb 9.3 L Hct 28.0 L MCV 78 L MCH 26 L RDW 18.2 H Plt Count Lymph % (Auto) [place] % (Auto) Eos % (Auto) Seg Neutrophils % Seg Neuts % (Manual) Lymphocytes % (Manual) Seg Neutrophils # Seg Neutrophils # Man Lymphocytes # (Manual) POC ABG pH ABG pH POC ABG pCO2 POC ABG pO2 ABG pO2 ABG HCO3 ABG Base Excess ABG Hemoglobin Oxyhemoglobin Sodium Potassium Chloride 112.4 H Carbon Dioxide 19 L BUN Creatinine Glucose 118 H POC Glucose 164 H Lactic Acid Calcium 8.0 L AST Alkaline Phosphatase Albumin Urine WBC (Auto) 01/13/17 01/13/17 01/13/17 04:26 06:15 11:50 WBC RBC Hgb Hct MCV MCH RDW Plt Count Lymph % (Auto) [place] % (Auto) Eos % (Auto) Seg Neutrophils % Seg Neuts % (Manual) Lymphocytes % (Manual) Seg Neutrophils # Seg Neutrophils # Man Lymphocytes # (Manual) POC ABG pH 7.485 H ABG pH POC ABG pCO2 25.4 L POC ABG pO2 73 L ABG pO2 ABG HCO3 ABG Base Excess ABG Hemoglobin Oxyhemoglobin Sodium Potassium Chloride Carbon Dioxide BUN Creatinine Glucose POC Glucose 116 H 171 H Lactic Acid Calcium AST Alkaline Phosphatase Albumin Urine WBC (Auto) 01/13/17 01/14/17 01/14/17 17:31 00:02 04:50 WBC RBC 3.32 L Hgb 8.5 L Hct 26.1 L MCV 79 L MCH 26 L RDW 18.2 H Plt Count Lymph % (Auto) [place] % (Auto) 9.0 H Eos % (Auto) Seg Neutrophils % Seg Neuts % (Manual) Lymphocytes % (Manual) Seg Neutrophils # Seg Neutrophils # Man Lymphocytes # (Manual) POC ABG pH ABG pH POC ABG pCO2 POC ABG pO2 ABG pO2 ABG HCO3 ABG Base Excess ABG Hemoglobin Oxyhemoglobin Sodium Potassium Chloride Carbon Dioxide BUN Creatinine Glucose POC Glucose 203 H 157 H Lactic Acid Calcium AST Alkaline Phosphatase Albumin Urine WBC (Auto) 01/14/17 01/14/17 01/14/17 04:50 05:10 11:27 WBC RBC Hgb Hct MCV MCH RDW Plt Count Lymph % (Auto) [place] % (Auto) Eos % (Auto) Seg Neutrophils % Seg Neuts % (Manual) Lymphocytes % (Manual) Seg Neutrophils # Seg Neutrophils # Man Lymphocytes # (Manual) POC ABG pH ABG pH POC ABG pCO2 POC ABG pO2 ABG pO2 ABG HCO3 ABG Base Excess ABG Hemoglobin Oxyhemoglobin Sodium Potassium Chloride 112.5 H Carbon Dioxide BUN Creatinine Glucose 149 H POC Glucose 176 H 147 H Lactic Acid Calcium 8.1 L AST Alkaline Phosphatase Albumin Urine WBC (Auto) 01/14/17 01/14/17 01/15/17 14:07 16:52 00:04 WBC RBC Hgb Hct MCV MCH RDW Plt Count Lymph % (Auto) [place] % (Auto) Eos % (Auto) Seg Neutrophils % Seg Neuts % (Manual) Lymphocytes % (Manual) Seg Neutrophils # Seg Neutrophils # Man Lymphocytes # (Manual) POC ABG pH ABG pH POC ABG pCO2 POC ABG pO2 ABG pO2 ABG HCO3 ABG Base Excess ABG Hemoglobin Oxyhemoglobin Sodium Potassium Chloride Carbon Dioxide BUN Creatinine Glucose POC Glucose 131 H 193 H Lactic Acid Calcium AST Alkaline Phosphatase Albumin Urine WBC (Auto) 53.0 H 01/15/17 01/15/17 01/15/17 05:26 11:49 17:47 WBC RBC Hgb Hct MCV MCH RDW Plt Count Lymph % (Auto) [place] % (Auto) Eos % (Auto) Seg Neutrophils % Seg Neuts % (Manual) Lymphocytes % (Manual) Seg Neutrophils # Seg Neutrophils # Man Lymphocytes # (Manual) POC ABG pH ABG pH POC ABG pCO2 POC ABG pO2 ABG pO2 ABG HCO3 ABG Base Excess ABG Hemoglobin Oxyhemoglobin Sodium Potassium Chloride Carbon Dioxide BUN Creatinine Glucose POC Glucose 215 H 121 H 211 H Lactic Acid Calcium AST Alkaline Phosphatase Albumin Urine WBC (Auto) 01/15/17 01/16/17 01/16/17 21:33 04:30 05:28 WBC RBC Hgb Hct MCV MCH RDW Plt Count Lymph % (Auto) [place] % (Auto) Eos % (Auto) Seg Neutrophils % Seg Neuts % (Manual) Lymphocytes % (Manual) Seg Neutrophils # Seg Neutrophils # Man Lymphocytes # (Manual) POC ABG pH ABG pH 7.457 H POC ABG pCO2 POC ABG pO2 ABG pO2 55.1 L ABG HCO3 19.4 L ABG Base Excess -4.0 L ABG Hemoglobin 6.8 L Oxyhemoglobin 94.9 L Sodium Potassium Chloride Carbon Dioxide BUN Creatinine Glucose POC Glucose 275 H 271 H Lactic Acid Calcium AST Alkaline Phosphatase Albumin Urine WBC (Auto) 01/16/17 01/16/17 01/17/17 13:45 21:39 04:10 WBC 4.4 L RBC 2.98 L Hgb 7.7 L Hct 23.3 L MCV 78 L MCH 26 L RDW 18.1 H Plt Count Lymph % (Auto) [place] % (Auto) Eos % (Auto) Seg Neutrophils % Seg Neuts % (Manual) Lymphocytes % (Manual) Seg Neutrophils # Seg Neutrophils # Man Lymphocytes # (Manual) POC ABG pH ABG pH POC ABG pCO2 POC ABG pO2 ABG pO2 ABG HCO3 ABG Base Excess ABG Hemoglobin Oxyhemoglobin Sodium Potassium Chloride Carbon Dioxide BUN Creatinine Glucose POC Glucose 236 H 258 H Lactic Acid Calcium AST Alkaline Phosphatase Albumin Urine WBC (Auto) 01/17/17 01/17/17 01/17/17 04:10 04:35 12:23 WBC RBC Hgb Hct MCV MCH RDW Plt Count Lymph % (Auto) [place] % (Auto) Eos % (Auto) Seg Neutrophils % Seg Neuts % (Manual) Lymphocytes % (Manual) Seg Neutrophils # Seg Neutrophils # Man Lymphocytes # (Manual) POC ABG pH ABG pH POC ABG pCO2 POC ABG pO2 ABG pO2 160.3 H ABG HCO3 ABG Base Excess -2.3 L ABG Hemoglobin 7.9 L Oxyhemoglobin Sodium Potassium 3.3 L Chloride 108.7 H Carbon Dioxide 20 L BUN 8 L Creatinine Glucose 202 H POC Glucose 321 H Lactic Acid Calcium 7.6 L AST Alkaline Phosphatase Albumin Urine WBC (Auto) 01/17/17 01/18/17 01/18/17 16:01 05:07 12:09 WBC RBC Hgb Hct MCV MCH RDW Plt Count Lymph % (Auto) [place] % (Auto) Eos % (Auto) Seg Neutrophils % Seg Neuts % (Manual) Lymphocytes % (Manual) Seg Neutrophils # Seg Neutrophils # Man Lymphocytes # (Manual) POC ABG pH ABG pH POC ABG pCO2 POC ABG pO2 ABG pO2 ABG HCO3 ABG Base Excess ABG Hemoglobin Oxyhemoglobin Sodium Potassium Chloride Carbon Dioxide BUN Creatinine Glucose POC Glucose 239 H 155 H 203 H Lactic Acid Calcium AST Alkaline Phosphatase Albumin Urine WBC (Auto) 01/18/17 01/18/17 01/19/17 17:54 23:43 04:28 WBC RBC Hgb Hct MCV MCH RDW Plt Count Lymph % (Auto) [place] % (Auto) Eos % (Auto) Seg Neutrophils % Seg Neuts % (Manual) Lymphocytes % (Manual) Seg Neutrophils # Seg Neutrophils # Man Lymphocytes # (Manual) POC ABG pH ABG pH POC ABG pCO2 POC ABG pO2 ABG pO2 ABG HCO3 ABG Base Excess ABG Hemoglobin Oxyhemoglobin Sodium Potassium Chloride Carbon Dioxide BUN Creatinine Glucose POC Glucose 132 H 125 H 182 H Lactic Acid Calcium AST Alkaline Phosphatase Albumin Urine WBC (Auto) 01/19/17 01/19/17 01/20/17 12:11 17:23 00:12 WBC RBC Hgb Hct MCV MCH RDW Plt Count Lymph % (Auto) [place] % (Auto) Eos % (Auto) Seg Neutrophils % Seg Neuts % (Manual) Lymphocytes % (Manual) Seg Neutrophils # Seg Neutrophils # Man Lymphocytes # (Manual) POC ABG pH ABG pH POC ABG pCO2 POC ABG pO2 ABG pO2 ABG HCO3 ABG Base Excess ABG Hemoglobin Oxyhemoglobin Sodium Potassium Chloride Carbon Dioxide BUN Creatinine Glucose POC Glucose 153 H 66 L 139 H Lactic Acid Calcium AST Alkaline Phosphatase Albumin Urine WBC (Auto) 01/20/17 01/20/17 01/20/17 05:44 11:48 17:42 WBC RBC Hgb Hct MCV MCH RDW Plt Count Lymph % (Auto) [place] % (Auto) Eos % (Auto) Seg Neutrophils % Seg Neuts % (Manual) Lymphocytes % (Manual) Seg Neutrophils # Seg Neutrophils # Man Lymphocytes # (Manual) POC ABG pH ABG pH POC ABG pCO2 POC ABG pO2 ABG pO2 ABG HCO3 ABG Base Excess ABG Hemoglobin Oxyhemoglobin Sodium Potassium Chloride Carbon Dioxide BUN Creatinine Glucose POC Glucose 176 H 218 H 132 H Lactic Acid Calcium AST Alkaline Phosphatase Albumin Urine WBC (Auto) 01/20/17 01/21/17 01/21/17 23:43 05:34 11:17 WBC RBC Hgb Hct MCV MCH RDW Plt Count Lymph % (Auto) [place] % (Auto) Eos % (Auto) Seg Neutrophils % Seg Neuts % (Manual) Lymphocytes % (Manual) Seg Neutrophils # Seg Neutrophils # Man Lymphocytes # (Manual) POC ABG pH ABG pH POC ABG pCO2 POC ABG pO2 ABG pO2 ABG HCO3 ABG Base Excess ABG Hemoglobin Oxyhemoglobin Sodium Potassium Chloride Carbon Dioxide BUN Creatinine Glucose POC Glucose 178 H 106 H 213 H Lactic Acid Calcium AST Alkaline Phosphatase Albumin Urine WBC (Auto) 01/21/17 01/22/17 01/22/17 23:37 04:00 04:00 WBC RBC 3.26 L Hgb 8.3 L Hct 25.5 L MCV 78 L MCH 25 L RDW 17.9 H Plt Count Lymph % (Auto) [place] % (Auto) 7.9 H Eos % (Auto) 6.2 H Seg Neutrophils % Seg Neuts % (Manual) Lymphocytes % (Manual) Seg Neutrophils # Seg Neutrophils # Man Lymphocytes # (Manual) POC ABG pH ABG pH POC ABG pCO2 POC ABG pO2 ABG pO2 ABG HCO3 ABG Base Excess ABG Hemoglobin Oxyhemoglobin Sodium Potassium Chloride 95.5 L Carbon Dioxide 31 H D BUN Creatinine Glucose 134 H POC Glucose 140 H Lactic Acid Calcium AST 44 H Alkaline Phosphatase 379 H Albumin 2.7 L Urine WBC (Auto) 01/22/17 01/22/17 01/22/17 04:58 12:12 18:12 WBC RBC Hgb Hct MCV MCH RDW Plt Count Lymph % (Auto) [place] % (Auto) Eos % (Auto) Seg Neutrophils % Seg Neuts % (Manual) Lymphocytes % (Manual) Seg Neutrophils # Seg Neutrophils # Man Lymphocytes # (Manual) POC ABG pH ABG pH POC ABG pCO2 POC ABG pO2 ABG pO2 ABG HCO3 ABG Base Excess ABG Hemoglobin Oxyhemoglobin Sodium Potassium Chloride Carbon Dioxide BUN Creatinine Glucose POC Glucose 146 H 255 H 182 H Lactic Acid Calcium AST Alkaline Phosphatase Albumin Urine WBC (Auto) 01/22/17 01/23/17 01/23/17 23:39 04:43 12:12 WBC RBC Hgb Hct MCV MCH RDW Plt Count Lymph % (Auto) [place] % (Auto) Eos % (Auto) Seg Neutrophils % Seg Neuts % (Manual) Lymphocytes % (Manual) Seg Neutrophils # Seg Neutrophils # Man Lymphocytes # (Manual) POC ABG pH ABG pH POC ABG pCO2 POC ABG pO2 ABG pO2 ABG HCO3 ABG Base Excess ABG Hemoglobin Oxyhemoglobin Sodium Potassium Chloride Carbon Dioxide BUN Creatinine Glucose POC Glucose 134 H 218 H 128 H Lactic Acid Calcium AST Alkaline Phosphatase Albumin Urine WBC (Auto) 01/23/17 01/24/17 01/24/17 17:36 00:08 05:16 WBC RBC Hgb Hct MCV MCH RDW Plt Count Lymph % (Auto) [place] % (Auto) Eos % (Auto) Seg Neutrophils % Seg Neuts % (Manual) Lymphocytes % (Manual) Seg Neutrophils # Seg Neutrophils # Man Lymphocytes # (Manual) POC ABG pH ABG pH POC ABG pCO2 POC ABG pO2 ABG pO2 ABG HCO3 ABG Base Excess ABG Hemoglobin Oxyhemoglobin Sodium Potassium Chloride Carbon Dioxide BUN Creatinine Glucose POC Glucose 156 H 129 H 169 H Lactic Acid Calcium AST Alkaline Phosphatase Albumin Urine WBC (Auto) 01/24/17 01/24/17 01/24/17 11:40 17:43 23:23 WBC RBC Hgb Hct MCV MCH RDW Plt Count Lymph % (Auto) [place] % (Auto) Eos % (Auto) Seg Neutrophils % Seg Neuts % (Manual) Lymphocytes % (Manual) Seg Neutrophils # Seg Neutrophils # Man Lymphocytes # (Manual) POC ABG pH ABG pH POC ABG pCO2 POC ABG pO2 ABG pO2 ABG HCO3 ABG Base Excess ABG Hemoglobin Oxyhemoglobin Sodium Potassium Chloride Carbon Dioxide BUN Creatinine Glucose POC Glucose 187 H 215 H 222 H Lactic Acid Calcium AST Alkaline Phosphatase Albumin Urine WBC (Auto) 01/25/17 01/25/17 01/25/17 04:56 11:52 17:37 WBC RBC Hgb Hct MCV MCH RDW Plt Count Lymph % (Auto) [place] % (Auto) Eos % (Auto) Seg Neutrophils % Seg Neuts % (Manual) Lymphocytes % (Manual) Seg Neutrophils # Seg Neutrophils # Man Lymphocytes # (Manual) POC ABG pH ABG pH POC ABG pCO2 POC ABG pO2 ABG pO2 ABG HCO3 ABG Base Excess ABG Hemoglobin Oxyhemoglobin Sodium Potassium Chloride Carbon Dioxide BUN Creatinine Glucose POC Glucose 210 H 284 H 218 H Lactic Acid Calcium AST Alkaline Phosphatase Albumin Urine WBC (Auto) 01/26/17 01/26/17 01/26/17 00:02 05:33 12:17 WBC RBC Hgb Hct MCV MCH RDW Plt Count Lymph % (Auto) [place] % (Auto) Eos % (Auto) Seg Neutrophils % Seg Neuts % (Manual) Lymphocytes % (Manual) Seg Neutrophils # Seg Neutrophils # Man Lymphocytes # (Manual) POC ABG pH ABG pH POC ABG pCO2 POC ABG pO2 ABG pO2 ABG HCO3 ABG Base Excess ABG Hemoglobin Oxyhemoglobin Sodium Potassium Chloride Carbon Dioxide BUN Creatinine Glucose POC Glucose 192 H 199 H 227 H Lactic Acid Calcium AST Alkaline Phosphatase Albumin Urine WBC (Auto) 01/26/17 01/26/17 01/27/17 17:50 23:57 05:31 WBC RBC Hgb Hct MCV MCH RDW Plt Count Lymph % (Auto) [place] % (Auto) Eos % (Auto) Seg Neutrophils % Seg Neuts % (Manual) Lymphocytes % (Manual) Seg Neutrophils # Seg Neutrophils # Man Lymphocytes # (Manual) POC ABG pH ABG pH POC ABG pCO2 POC ABG pO2 ABG pO2 ABG HCO3 ABG Base Excess ABG Hemoglobin Oxyhemoglobin Sodium Potassium Chloride Carbon Dioxide BUN Creatinine Glucose POC Glucose 229 H 186 H 285 H Lactic Acid Calcium AST Alkaline Phosphatase Albumin Urine WBC (Auto) 01/27/17 01/27/17 01/27/17 11:42 17:47 23:58 WBC RBC Hgb Hct MCV MCH RDW Plt Count Lymph % (Auto) [place] % (Auto) Eos % (Auto) Seg Neutrophils % Seg Neuts % (Manual) Lymphocytes % (Manual) Seg Neutrophils # Seg Neutrophils # Man Lymphocytes # (Manual) POC ABG pH ABG pH POC ABG pCO2 POC ABG pO2 ABG pO2 ABG HCO3 ABG Base Excess ABG Hemoglobin Oxyhemoglobin Sodium Potassium Chloride Carbon Dioxide BUN Creatinine Glucose POC Glucose 260 H 329 H 225 H Lactic Acid Calcium AST Alkaline Phosphatase Albumin Urine WBC (Auto) 01/27/17 01/27/17 01/28/17 Unknown Unknown 03:44 WBC 12.1 H RBC 3.28 L 3.14 L Hgb 8.5 L 8.2 L Hct 25.5 L 24.1 L MCV 78 L 77 L MCH 26 L 26 L RDW 16.8 H 16.9 H Plt Count 601 H 567 H Lymph % (Auto) [place] % (Auto) Eos % (Auto) Seg Neutrophils % Seg Neuts % (Manual) Lymphocytes % (Manual) Seg Neutrophils # Seg Neutrophils # Man Lymphocytes # (Manual) POC ABG pH ABG pH POC ABG pCO2 POC ABG pO2 ABG pO2 ABG HCO3 ABG Base Excess ABG Hemoglobin Oxyhemoglobin Sodium 128 L Potassium 5.4 H Chloride 87.5 L Carbon Dioxide BUN 44 H Creatinine Glucose 250 H POC Glucose Lactic Acid Calcium AST Alkaline Phosphatase Albumin Urine WBC (Auto) 01/28/17 01/28/17 01/28/17 03:44 11:43 16:47 WBC RBC Hgb Hct MCV MCH RDW Plt Count Lymph % (Auto) [place] % (Auto) Eos % (Auto) Seg Neutrophils % Seg Neuts % (Manual) Lymphocytes % (Manual) Seg Neutrophils # Seg Neutrophils # Man Lymphocytes # (Manual) POC ABG pH ABG pH POC ABG pCO2 POC ABG pO2 ABG pO2 ABG HCO3 ABG Base Excess ABG Hemoglobin Oxyhemoglobin Sodium Potassium Chloride Carbon Dioxide BUN 42 H Creatinine Glucose 128 H POC Glucose 351 H 249 H Lactic Acid Calcium AST Alkaline Phosphatase Albumin Urine WBC (Auto) 01/28/17 01/29/17 01/29/17 17:52 05:25 05:25 WBC 13.6 H RBC 3.25 L Hgb 8.3 L Hct 25.1 L MCV 77 L MCH 26 L RDW 16.8 H Plt Count 514 H Lymph % (Auto) [place] % (Auto) Eos % (Auto) Seg Neutrophils % Seg Neuts % (Manual) Lymphocytes % (Manual) Seg Neutrophils # Seg Neutrophils # Man Lymphocytes # (Manual) POC ABG pH ABG pH POC ABG pCO2 POC ABG pO2 ABG pO2 ABG HCO3 ABG Base Excess ABG Hemoglobin Oxyhemoglobin Sodium Potassium Chloride 97.8 L Carbon Dioxide BUN 34 H Creatinine Glucose 222 H POC Glucose Lactic Acid Calcium AST Alkaline Phosphatase Albumin Urine WBC (Auto) > 182.0 H 01/29/17 01/29/17 01/29/17 09:32 11:56 18:11 WBC RBC Hgb Hct MCV MCH RDW Plt Count Lymph % (Auto) [place] % (Auto) Eos % (Auto) Seg Neutrophils % Seg Neuts % (Manual) Lymphocytes % (Manual) Seg Neutrophils # Seg Neutrophils # Man Lymphocytes # (Manual) POC ABG pH ABG pH POC ABG pCO2 POC ABG pO2 ABG pO2 ABG HCO3 ABG Base Excess ABG Hemoglobin Oxyhemoglobin Sodium Potassium Chloride Carbon Dioxide BUN Creatinine Glucose POC Glucose 261 H 215 H Lactic Acid 2.50 H* Calcium AST Alkaline Phosphatase Albumin Urine WBC (Auto) 01/29/17 01/30/17 01/30/17 23:55 05:31 05:31 WBC 15.2 H RBC 3.09 L Hgb 7.9 L Hct 23.9 L MCV 77 L MCH 26 L RDW 16.9 H Plt Count 569 H Lymph % (Auto) [place] % (Auto) Eos % (Auto) Seg Neutrophils % Seg Neuts % (Manual) Lymphocytes % (Manual) Seg Neutrophils # Seg Neutrophils # Man Lymphocytes # (Manual) POC ABG pH ABG pH POC ABG pCO2 POC ABG pO2 ABG pO2 ABG HCO3 ABG Base Excess ABG Hemoglobin Oxyhemoglobin Sodium Potassium Chloride Carbon Dioxide BUN 24 H Creatinine Glucose 235 H POC Glucose 176 H Lactic Acid Calcium AST Alkaline Phosphatase Albumin Urine WBC (Auto) 01/30/17 01/30/17 01/30/17 05:34 11:38 17:58 WBC RBC Hgb Hct MCV MCH RDW Plt Count Lymph % (Auto) [place] % (Auto) Eos % (Auto) Seg Neutrophils % Seg Neuts % (Manual) Lymphocytes % (Manual) Seg Neutrophils # Seg Neutrophils # Man Lymphocytes # (Manual) POC ABG pH ABG pH POC ABG pCO2 POC ABG pO2 ABG pO2 ABG HCO3 ABG Base Excess ABG Hemoglobin Oxyhemoglobin Sodium Potassium Chloride Carbon Dioxide BUN Creatinine Glucose POC Glucose 243 H 298 H 208 H Lactic Acid Calcium AST Alkaline Phosphatase Albumin Urine WBC (Auto) 01/30/17 01/31/17 01/31/17 23:29 04:39 04:39 WBC 11.4 H RBC 3.22 L Hgb 8.2 L Hct 24.9 L MCV 78 L MCH 25 L RDW 17.2 H Plt Count 576 H Lymph % (Auto) [place] % (Auto) Eos % (Auto) Seg Neutrophils % Seg Neuts % (Manual) Lymphocytes % (Manual) Seg Neutrophils # Seg Neutrophils # Man Lymphocytes # (Manual) POC ABG pH ABG pH POC ABG pCO2 POC ABG pO2 ABG pO2 ABG HCO3 ABG Base Excess ABG Hemoglobin Oxyhemoglobin Sodium Potassium Chloride Carbon Dioxide BUN Creatinine 0.7 L Glucose 223 H POC Glucose 245 H Lactic Acid Calcium AST Alkaline Phosphatase Albumin Urine WBC (Auto) 01/31/17 01/31/17 01/31/17 05:57 12:23 17:41 WBC RBC Hgb Hct MCV MCH RDW Plt Count Lymph % (Auto) [place] % (Auto) Eos % (Auto) Seg Neutrophils % Seg Neuts % (Manual) Lymphocytes % (Manual) Seg Neutrophils # Seg Neutrophils # Man Lymphocytes # (Manual) POC ABG pH ABG pH POC ABG pCO2 POC ABG pO2 ABG pO2 ABG HCO3 ABG Base Excess ABG Hemoglobin Oxyhemoglobin Sodium Potassium Chloride Carbon Dioxide BUN Creatinine Glucose POC Glucose 264 H 252 H 208 H Lactic Acid Calcium AST Alkaline Phosphatase Albumin Urine WBC (Auto) 01/31/17 01/31/17 02/01/17 18:55 22:59 03:38 WBC RBC 2.81 L Hgb 7.4 L Hct 22.1 L MCV 79 L MCH 27 L RDW 17.0 H Plt Count 540 H Lymph % (Auto) [place] % (Auto) Eos % (Auto) Seg Neutrophils % Seg Neuts % (Manual) Lymphocytes % (Manual) Seg Neutrophils # Seg Neutrophils # Man Lymphocytes # (Manual) POC ABG pH ABG pH POC ABG pCO2 32.8 L POC ABG pO2 ABG pO2 ABG HCO3 ABG Base Excess ABG Hemoglobin Oxyhemoglobin Sodium Potassium Chloride Carbon Dioxide BUN Creatinine Glucose POC Glucose 40 L Lactic Acid Calcium AST Alkaline Phosphatase Albumin Urine WBC (Auto) 02/01/17 02/01/17 02/01/17 03:38 05:17 12:19 WBC RBC Hgb Hct MCV MCH RDW Plt Count Lymph % (Auto) [place] % (Auto) Eos % (Auto) Seg Neutrophils % Seg Neuts % (Manual) Lymphocytes % (Manual) Seg Neutrophils # Seg Neutrophils # Man Lymphocytes # (Manual) POC ABG pH ABG pH POC ABG pCO2 POC ABG pO2 ABG pO2 ABG HCO3 ABG Base Excess ABG Hemoglobin Oxyhemoglobin Sodium Potassium Chloride Carbon Dioxide 21 L BUN Creatinine 0.7 L Glucose POC Glucose 140 H 213 H Lactic Acid Calcium AST Alkaline Phosphatase Albumin Urine WBC (Auto) 02/01/17 02/01/17 02/02/17 16:44 23:59 05:14 WBC RBC Hgb Hct MCV MCH RDW Plt Count Lymph % (Auto) [place] % (Auto) Eos % (Auto) Seg Neutrophils % Seg Neuts % (Manual) Lymphocytes % (Manual) Seg Neutrophils # Seg Neutrophils # Man Lymphocytes # (Manual) POC ABG pH ABG pH POC ABG pCO2 POC ABG pO2 ABG pO2 ABG HCO3 ABG Base Excess ABG Hemoglobin Oxyhemoglobin Sodium Potassium Chloride Carbon Dioxide BUN Creatinine Glucose POC Glucose 172 H 181 H 194 H Lactic Acid Calcium AST Alkaline Phosphatase Albumin Urine WBC (Auto) 02/02/17 02/02/17 02/02/17 11:24 11:46 11:46 WBC RBC 2.94 L Hgb 7.5 L Hct 23.0 L MCV 78 L MCH 25 L RDW 16.9 H Plt Count 520 H Lymph % (Auto) [place] % (Auto) Eos % (Auto) Seg Neutrophils % Seg Neuts % (Manual) Lymphocytes % (Manual) Seg Neutrophils # Seg Neutrophils # Man Lymphocytes # (Manual) POC ABG pH ABG pH POC ABG pCO2 POC ABG pO2 ABG pO2 ABG HCO3 ABG Base Excess ABG Hemoglobin Oxyhemoglobin Sodium Potassium Chloride Carbon Dioxide BUN Creatinine 0.6 L Glucose 189 H POC Glucose 209 H Lactic Acid Calcium 8.1 L AST Alkaline Phosphatase Albumin Urine WBC (Auto) 02/02/17 02/02/17 02/03/17 17:47 23:32 05:53 WBC RBC Hgb Hct MCV MCH RDW Plt Count Lymph % (Auto) [place] % (Auto) Eos % (Auto) Seg Neutrophils % Seg Neuts % (Manual) Lymphocytes % (Manual) Seg Neutrophils # Seg Neutrophils # Man Lymphocytes # (Manual) POC ABG pH ABG pH POC ABG pCO2 POC ABG pO2 ABG pO2 ABG HCO3 ABG Base Excess ABG Hemoglobin Oxyhemoglobin Sodium Potassium Chloride Carbon Dioxide BUN Creatinine Glucose POC Glucose 147 H 176 H 224 H Lactic Acid Calcium AST Alkaline Phosphatase Albumin Urine WBC (Auto) 02/03/17 02/03/17 02/03/17 11:19 16:59 23:38 WBC RBC Hgb Hct MCV MCH RDW Plt Count Lymph % (Auto) [place] % (Auto) Eos % (Auto) Seg Neutrophils % Seg Neuts % (Manual) Lymphocytes % (Manual) Seg Neutrophils # Seg Neutrophils # Man Lymphocytes # (Manual) POC ABG pH ABG pH POC ABG pCO2 POC ABG pO2 ABG pO2 ABG HCO3 ABG Base Excess ABG Hemoglobin Oxyhemoglobin Sodium Potassium Chloride Carbon Dioxide BUN Creatinine Glucose POC Glucose 228 H 189 H 191 H Lactic Acid Calcium AST Alkaline Phosphatase Albumin Urine WBC (Auto) 02/04/17 02/04/17 02/04/17 05:45 11:20 17:20 WBC RBC Hgb Hct MCV MCH RDW Plt Count Lymph % (Auto) [place] % (Auto) Eos % (Auto) Seg Neutrophils % Seg Neuts % (Manual) Lymphocytes % (Manual) Seg Neutrophils # Seg Neutrophils # Man Lymphocytes # (Manual) POC ABG pH ABG pH POC ABG pCO2 POC ABG pO2 ABG pO2 ABG HCO3 ABG Base Excess ABG Hemoglobin Oxyhemoglobin Sodium Potassium Chloride Carbon Dioxide BUN Creatinine Glucose POC Glucose 251 H 243 H 163 H Lactic Acid Calcium AST Alkaline Phosphatase Albumin Urine WBC (Auto) 02/05/17 02/05/17 02/05/17 00:17 05:38 12:38 WBC RBC Hgb Hct MCV MCH RDW Plt Count Lymph % (Auto) [place] % (Auto) Eos % (Auto) Seg Neutrophils % Seg Neuts % (Manual) Lymphocytes % (Manual) Seg Neutrophils # Seg Neutrophils # Man Lymphocytes # (Manual) POC ABG pH ABG pH POC ABG pCO2 POC ABG pO2 ABG pO2 ABG HCO3 ABG Base Excess ABG Hemoglobin Oxyhemoglobin Sodium Potassium Chloride Carbon Dioxide BUN Creatinine Glucose POC Glucose 200 H 248 H 241 H Lactic Acid Calcium AST Alkaline Phosphatase Albumin Urine WBC (Auto) 02/05/17 02/05/17 02/06/17 16:29 23:56 05:30 WBC RBC Hgb Hct MCV MCH RDW Plt Count Lymph % (Auto) [place] % (Auto) Eos % (Auto) Seg Neutrophils % Seg Neuts % (Manual) Lymphocytes % (Manual) Seg Neutrophils # Seg Neutrophils # Man Lymphocytes # (Manual) POC ABG pH ABG pH POC ABG pCO2 POC ABG pO2 ABG pO2 ABG HCO3 ABG Base Excess ABG Hemoglobin Oxyhemoglobin Sodium Potassium Chloride Carbon Dioxide BUN Creatinine Glucose POC Glucose 257 H 258 H 120 H Lactic Acid Calcium AST Alkaline Phosphatase Albumin Urine WBC (Auto) 02/06/17 02/06/17 02/06/17 11:50 17:11 23:50 WBC RBC Hgb Hct MCV MCH RDW Plt Count Lymph % (Auto) [place] % (Auto) Eos % (Auto) Seg Neutrophils % Seg Neuts % (Manual) Lymphocytes % (Manual) Seg Neutrophils # Seg Neutrophils # Man Lymphocytes # (Manual) POC ABG pH ABG pH POC ABG pCO2 POC ABG pO2 ABG pO2 ABG HCO3 ABG Base Excess ABG Hemoglobin Oxyhemoglobin Sodium Potassium Chloride Carbon Dioxide BUN Creatinine Glucose POC Glucose 254 H 149 H 240 H Lactic Acid Calcium AST Alkaline Phosphatase Albumin Urine WBC (Auto) 02/07/17 02/07/17 02/07/17 05:22 11:15 18:33 WBC RBC Hgb Hct MCV MCH RDW Plt Count Lymph % (Auto) [place] % (Auto) Eos % (Auto) Seg Neutrophils % Seg Neuts % (Manual) Lymphocytes % (Manual) Seg Neutrophils # Seg Neutrophils # Man Lymphocytes # (Manual) POC ABG pH ABG pH POC ABG pCO2 POC ABG pO2 ABG pO2 ABG HCO3 ABG Base Excess ABG Hemoglobin Oxyhemoglobin Sodium Potassium Chloride Carbon Dioxide BUN Creatinine Glucose POC Glucose 258 H 239 H 176 H Lactic Acid Calcium AST Alkaline Phosphatase Albumin Urine WBC (Auto) 02/07/17 02/08/17 02/08/17 23:59 06:15 11:55 WBC RBC Hgb Hct MCV MCH RDW Plt Count Lymph % (Auto) [place] % (Auto) Eos % (Auto) Seg Neutrophils % Seg Neuts % (Manual) Lymphocytes % (Manual) Seg Neutrophils # Seg Neutrophils # Man Lymphocytes # (Manual) POC ABG pH ABG pH POC ABG pCO2 POC ABG pO2 ABG pO2 ABG HCO3 ABG Base Excess ABG Hemoglobin Oxyhemoglobin Sodium Potassium Chloride Carbon Dioxide BUN Creatinine Glucose POC Glucose 186 H 195 H 129 H Lactic Acid Calcium AST Alkaline Phosphatase Albumin Urine WBC (Auto) 02/08/17 02/08/17 02/09/17 16:55 23:51 05:51 WBC RBC Hgb Hct MCV MCH RDW Plt Count Lymph % (Auto) [place] % (Auto) Eos % (Auto) Seg Neutrophils % Seg Neuts % (Manual) Lymphocytes % (Manual) Seg Neutrophils # Seg Neutrophils # Man Lymphocytes # (Manual) POC ABG pH ABG pH POC ABG pCO2 POC ABG pO2 ABG pO2 ABG HCO3 ABG Base Excess ABG Hemoglobin Oxyhemoglobin Sodium Potassium Chloride Carbon Dioxide BUN Creatinine Glucose POC Glucose 246 H 262 H 295 H Lactic Acid Calcium AST Alkaline Phosphatase Albumin Urine WBC (Auto) 02/09/17 02/09/17 02/09/17 07:24 07:24 12:08 WBC 14.7 H RBC 3.39 L Hgb 8.9 L Hct 26.4 L MCV 78 L MCH 26 L RDW 18.4 H Plt Count 670 H Lymph % (Auto) 11.8 L [place] % (Auto) Eos % (Auto) Seg Neutrophils % 81.2 H Seg Neuts % (Manual) Lymphocytes % (Manual) Seg Neutrophils # 11.9 H Seg Neutrophils # Man Lymphocytes # (Manual) POC ABG pH ABG pH POC ABG pCO2 POC ABG pO2 ABG pO2 ABG HCO3 ABG Base Excess ABG Hemoglobin Oxyhemoglobin Sodium Potassium Chloride 95.5 L Carbon Dioxide BUN 52 H Creatinine Glucose 277 H POC Glucose 236 H Lactic Acid Calcium AST Alkaline Phosphatase Albumin Urine WBC (Auto) 02/09/17 02/10/17 02/10/17 18:39 00:01 05:44 WBC RBC Hgb Hct MCV MCH RDW Plt Count Lymph % (Auto) [place] % (Auto) Eos % (Auto) Seg Neutrophils % Seg Neuts % (Manual) Lymphocytes % (Manual) Seg Neutrophils # Seg Neutrophils # Man Lymphocytes # (Manual) POC ABG pH ABG pH POC ABG pCO2 POC ABG pO2 ABG pO2 ABG HCO3 ABG Base Excess ABG Hemoglobin Oxyhemoglobin Sodium Potassium Chloride Carbon Dioxide BUN Creatinine Glucose POC Glucose 151 H 210 H 201 H Lactic Acid Calcium AST Alkaline Phosphatase Albumin Urine WBC (Auto) 02/10/17 02/10/17 02/10/17 11:21 17:29 23:56 WBC RBC Hgb Hct MCV MCH RDW Plt Count Lymph % (Auto) [place] % (Auto) Eos % (Auto) Seg Neutrophils % Seg Neuts % (Manual) Lymphocytes % (Manual) Seg Neutrophils # Seg Neutrophils # Man Lymphocytes # (Manual) POC ABG pH ABG pH POC ABG pCO2 POC ABG pO2 ABG pO2 ABG HCO3 ABG Base Excess ABG Hemoglobin Oxyhemoglobin Sodium Potassium Chloride Carbon Dioxide BUN Creatinine Glucose POC Glucose 233 H 167 H 191 H Lactic Acid Calcium AST Alkaline Phosphatase Albumin Urine WBC (Auto) 02/11/17 02/11/17 02/11/17 05:24 12:25 17:03 WBC RBC Hgb Hct MCV MCH RDW Plt Count Lymph % (Auto) [place] % (Auto) Eos % (Auto) Seg Neutrophils % Seg Neuts % (Manual) Lymphocytes % (Manual) Seg Neutrophils # Seg Neutrophils # Man Lymphocytes # (Manual) POC ABG pH ABG pH POC ABG pCO2 POC ABG pO2 ABG pO2 ABG HCO3 ABG Base Excess ABG Hemoglobin Oxyhemoglobin Sodium Potassium Chloride Carbon Dioxide BUN Creatinine Glucose POC Glucose 135 H 275 H 172 H Lactic Acid Calcium AST Alkaline Phosphatase Albumin Urine WBC (Auto) 02/11/17 02/12/17 02/12/17 23:59 05:39 11:33 WBC RBC Hgb Hct MCV MCH RDW Plt Count Lymph % (Auto) [place] % (Auto) Eos % (Auto) Seg Neutrophils % Seg Neuts % (Manual) Lymphocytes % (Manual) Seg Neutrophils # Seg Neutrophils # Man Lymphocytes # (Manual) POC ABG pH ABG pH POC ABG pCO2 POC ABG pO2 ABG pO2 ABG HCO3 ABG Base Excess ABG Hemoglobin Oxyhemoglobin Sodium Potassium Chloride Carbon Dioxide BUN Creatinine Glucose POC Glucose 215 H 261 H 217 H Lactic Acid Calcium AST Alkaline Phosphatase Albumin Urine WBC (Auto) 02/12/17 02/13/17 02/13/17 17:55 00:25 06:46 WBC RBC Hgb Hct MCV MCH RDW Plt Count Lymph % (Auto) [place] % (Auto) Eos % (Auto) Seg Neutrophils % Seg Neuts % (Manual) Lymphocytes % (Manual) Seg Neutrophils # Seg Neutrophils # Man Lymphocytes # (Manual) POC ABG pH ABG pH POC ABG pCO2 POC ABG pO2 ABG pO2 ABG HCO3 ABG Base Excess ABG Hemoglobin Oxyhemoglobin Sodium Potassium Chloride Carbon Dioxide BUN Creatinine Glucose POC Glucose 172 H 207 H 219 H Lactic Acid Calcium AST Alkaline Phosphatase Albumin Urine WBC (Auto) 02/13/17 02/13/17 02/13/17 11:26 17:12 23:44 WBC RBC Hgb Hct MCV MCH RDW Plt Count Lymph % (Auto) [place] % (Auto) Eos % (Auto) Seg Neutrophils % Seg Neuts % (Manual) Lymphocytes % (Manual) Seg Neutrophils # Seg Neutrophils # Man Lymphocytes # (Manual) POC ABG pH ABG pH POC ABG pCO2 POC ABG pO2 ABG pO2 ABG HCO3 ABG Base Excess ABG Hemoglobin Oxyhemoglobin Sodium Potassium Chloride Carbon Dioxide BUN Creatinine Glucose POC Glucose 231 H 190 H 256 H Lactic Acid Calcium AST Alkaline Phosphatase Albumin Urine WBC (Auto) 02/14/17 02/14/17 02/14/17 05:44 12:21 17:57 WBC RBC Hgb Hct MCV MCH RDW Plt Count Lymph % (Auto) [place] % (Auto) Eos % (Auto) Seg Neutrophils % Seg Neuts % (Manual) Lymphocytes % (Manual) Seg Neutrophils # Seg Neutrophils # Man Lymphocytes # (Manual) POC ABG pH ABG pH POC ABG pCO2 POC ABG pO2 ABG pO2 ABG HCO3 ABG Base Excess ABG Hemoglobin Oxyhemoglobin Sodium Potassium Chloride Carbon Dioxide BUN Creatinine Glucose POC Glucose 184 H 233 H 155 H Lactic Acid Calcium AST Alkaline Phosphatase Albumin Urine WBC (Auto) 02/14/17 02/15/17 02/15/17 23:18 05:33 11:45 WBC RBC Hgb Hct MCV MCH RDW Plt Count Lymph % (Auto) [place] % (Auto) Eos % (Auto) Seg Neutrophils % Seg Neuts % (Manual) Lymphocytes % (Manual) Seg Neutrophils # Seg Neutrophils # Man Lymphocytes # (Manual) POC ABG pH ABG pH POC ABG pCO2 POC ABG pO2 ABG pO2 ABG HCO3 ABG Base Excess ABG Hemoglobin Oxyhemoglobin Sodium Potassium Chloride Carbon Dioxide BUN Creatinine Glucose POC Glucose 165 H 239 H 130 H Lactic Acid Calcium AST Alkaline Phosphatase Albumin Urine WBC (Auto) 02/15/17 02/16/17 02/16/17 17:20 00:14 05:09 WBC RBC Hgb Hct MCV MCH RDW Plt Count Lymph % (Auto) [place] % (Auto) Eos % (Auto) Seg Neutrophils % Seg Neuts % (Manual) Lymphocytes % (Manual) Seg Neutrophils # Seg Neutrophils # Man Lymphocytes # (Manual) POC ABG pH ABG pH POC ABG pCO2 POC ABG pO2 ABG pO2 ABG HCO3 ABG Base Excess ABG Hemoglobin Oxyhemoglobin Sodium Potassium Chloride Carbon Dioxide BUN Creatinine Glucose POC Glucose 189 H 197 H 226 H Lactic Acid Calcium AST Alkaline Phosphatase Albumin Urine WBC (Auto) 02/16/17 02/16/17 02/16/17 12:31 16:35 23:49 WBC RBC Hgb Hct MCV MCH RDW Plt Count Lymph % (Auto) [place] % (Auto) Eos % (Auto) Seg Neutrophils % Seg Neuts % (Manual) Lymphocytes % (Manual) Seg Neutrophils # Seg Neutrophils # Man Lymphocytes # (Manual) POC ABG pH ABG pH POC ABG pCO2 POC ABG pO2 ABG pO2 ABG HCO3 ABG Base Excess ABG Hemoglobin Oxyhemoglobin Sodium Potassium Chloride Carbon Dioxide BUN Creatinine Glucose POC Glucose 178 H 174 H 62 L Lactic Acid Calcium AST Alkaline Phosphatase Albumin Urine WBC (Auto) 02/17/17 05:37 WBC RBC Hgb Hct MCV MCH RDW Plt Count Lymph % (Auto) [place] % (Auto) Eos % (Auto) Seg Neutrophils % Seg Neuts % (Manual) Lymphocytes % (Manual) Seg Neutrophils # Seg Neutrophils # Man Lymphocytes # (Manual) POC ABG pH ABG pH POC ABG pCO2 POC ABG pO2 ABG pO2 ABG HCO3 ABG Base Excess ABG Hemoglobin Oxyhemoglobin Sodium Potassium Chloride Carbon Dioxide BUN Creatinine Glucose POC Glucose 153 H Lactic Acid Calcium AST Alkaline Phosphatase Albumin Urine WBC (Auto)
--- NOTE | 2017-02-17 18:28 | Progress Note ---
Assessment and Plan Assessment and plan: 51 yo male with DM, HTN, CKD, alcohol abuse and history of delirium tremens, found down and unresponsive; upon EMS arrival, serum glucose found to be 21 and insulin syringes around; unable to protect airway, so intubated; metabolic abnormalities corrected, but he remained unresponsive. 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 Ethics committee decided to make him DO NOT RESUSCITATE, but was not willing to sign for withdrawal of ventilator. Further care felt to be futile and would only prolong potential suffering without affecting ultimate outcome. Currently [facility]. Awaiting guardianship from the state. 1. Acute hypoxic respiratory failure On ventilator Trach not warranted given his extremely poor prognosis 2. Hypoglycemic brain injury 3. Vegetative state 4. Hypothyroidism Free T4 normal, so myxedema, less likely 5. Poor prognosis. Made DO NOT RESUSCITATE and [facility] by ethics committee. Awaiting state guardianship History Interval history: comatose, unresponsive no events Hospitalist Physical - Constitutional Vitals: Temp Pulse Resp BP Pulse Ox 98.7 F 79 18 112/73 100 02/17/17 16:00 02/17/17 16:00 02/17/17 16:00 02/17/17 16:00 02/17/17 16:00 General appearance: Present: no acute distress, other (comatose, unresponsive) - Respiratory Respiratory effort: other (intubated) Respiratory: bilateral: CTA, negative: rhonchi, wheezing - Cardiovascular Rhythm: regular Heart Sounds: Present: S1 & S2. Absent: systolic murmur - Extremities Extremities: no ischemia - Abdominal General gastrointestinal: soft, non-distended - Psychiatric Psychiatric: other (unresponsive) Results - Labs CBC & Chem 7: 02/09/17 07:24 02/09/17 07:24 Labs: Laboratory Last Values WBC 14.7 K/mm3 (4.5-11.0) H 02/09/17 07:24 RBC 3.39 M/mm3 (3.65-5.03) L 02/09/17 07:24 Hgb 8.9 gm/dl (11.8-15.2) L 02/09/17 07:24 Hct 26.4 % (35.5-45.6) L 02/09/17 07:24 MCV 78 fl (84-94) L 02/09/17 07:24 MCH 26 pg (28-32) L 02/09/17 07:24 MCHC 34 % (32-34) 02/09/17 07:24 RDW 18.4 % (13.2-15.2) H 02/09/17 07:24 Plt Count 670 K/mm3 (140-440) H 02/09/17 07:24 Lymph % (Auto) 11.8 % (13.4-35.0) L 02/09/17 07:24 Kay % (Auto) 4.7 % (0.0-7.3) 02/09/17 07:24 Eos % (Auto) 1.9 % (0.0-4.3) 02/09/17 07:24 Baso % (Auto) 0.4 % (0.0-1.8) 02/09/17 07:24 Lymph # 1.7 K/mm3 (1.2-5.4) 02/09/17 07:24 Kay # 0.7 K/mm3 (0.0-0.8) 02/09/17 07:24 Eos # 0.3 K/mm3 (0.0-0.4) 02/09/17 07:24 Baso # 0.1 K/mm3 (0.0-0.1) 02/09/17 07:24 Add Manual Diff Complete 01/10/17 04:30 Total Counted 100 01/10/17 04:30 Seg Neutrophils % 81.2 % (40.0-70.0) H 02/09/17 07:24 Seg Neuts % (Manual) 88.0 % (40.0-70.0) H 01/10/17 04:30 Band Neutrophils % 7.0 % 01/10/17 04:30 Lymphocytes % (Manual) 4.0 % (13.4-35.0) L 01/10/17 04:30 Reactive Lymphs % (Man) 0 % 01/10/17 04:30 Monocytes % (Manual) 1.0 % (0.0-7.3) 01/10/17 04:30 Eosinophils % (Manual) 0 % (0.0-4.3) 01/10/17 04:30 Basophils % (Manual) 0 % (0.0-1.8) 01/10/17 04:30 Metamyelocytes % 0 % 01/10/17 04:30 Myelocytes % 0 % 01/10/17 04:30 Promyelocytes % 0 % 01/10/17 04:30 Blast Cells % 0 % 01/10/17 04:30 Nucleated RBC % Not Reportable 01/10/17 04:30 Seg Neutrophils # 11.9 K/mm3 (1.8-7.7) H 02/09/17 07:24 Seg Neutrophils # Man 21.2 K/mm3 (1.8-7.7) H 01/10/17 04:30 Band Neutrophils # 1.7 K/mm3 01/10/17 04:30 Lymphocytes # (Manual) 1.0 K/mm3 (1.2-5.4) L 01/10/17 04:30 Abs React Lymphs (Man) 0.0 K/mm3 01/10/17 04:30 Monocytes # (Manual) 0.2 K/mm3 (0.0-0.8) 01/10/17 04:30 Eosinophils # (Manual) 0.0 K/mm3 (0.0-0.4) 01/10/17 04:30 Basophils # (Manual) 0.0 K/mm3 (0.0-0.1) 01/10/17 04:30 Metamyelocytes # 0.0 K/mm3 01/10/17 04:30 Myelocytes # 0.0 K/mm3 01/10/17 04:30 Promyelocytes # 0.0 K/mm3 01/10/17 04:30 Blast Cells # 0.0 K/mm3 01/10/17 04:30 WBC Morphology Not Reportable 01/10/17 04:30 Hypersegmented Neuts Not Reportable 01/10/17 04:30 Hyposegmented Neuts Not Reportable 01/10/17 04:30 Hypogranular Neuts Not Reportable 01/10/17 04:30 Smudge Cells Not Reportable 01/10/17 04:30 Toxic Granulation Not Reportable 01/10/17 04:30 Toxic Vacuolation Not Reportable 01/10/17 04:30 Dohle Bodies Not Reportable 01/10/17 04:30 Pelger-Huet Anomaly Not Reportable 01/10/17 04:30 [place] Rods Not Reportable 01/10/17 04:30 Platelet Estimate Consistent w auto 01/10/17 04:30 Clumped Platelets Not Reportable 01/10/17 04:30 Plt Clumps, EDTA Not Reportable 01/10/17 04:30 Large Platelets Not Reportable 01/10/17 04:30 Giant Platelets Not Reportable 01/10/17 04:30 Platelet Satelliting Not Reportable 01/10/17 04:30 Plt Morphology Comment Not Reportable 01/10/17 04:30 RBC Morphology Not Reportable 01/10/17 04:30 Dimorphic RBCs Not Reportable 01/10/17 04:30 Polychromasia Not Reportable 01/10/17 04:30 Hypochromasia 1+ 01/10/17 04:30 Poikilocytosis Not Reportable 01/10/17 04:30 Anisocytosis Not Reportable 01/10/17 04:30 Microcytosis Not Reportable 01/10/17 04:30 Macrocytosis Not Reportable 01/10/17 04:30 Spherocytes Not Reportable 01/10/17 04:30 Pappenheimer Bodies Not Reportable 01/10/17 04:30 Sickle Cells Not Reportable 01/10/17 04:30 Target Cells Not Reportable 01/10/17 04:30 Tear Drop Cells Not Reportable 01/10/17 04:30 Ovalocytes Not Reportable 01/10/17 04:30 Helmet Cells Not Reportable 01/10/17 04:30 [place] Bodies Not Reportable 01/10/17 04:30 [place] Rings Not Reportable 01/10/17 04:30 [place] Cells Not Reportable 01/10/17 04:30 Bite Cells Not Reportable 01/10/17 04:30 Crenated Cell Not Reportable 01/10/17 04:30 Elliptocytes Not Reportable 01/10/17 04:30 Acanthocytes (Spur) Not Reportable 01/10/17 04:30 Rouleaux Not Reportable 01/10/17 04:30 Hemoglobin C Crystals Not Reportable 01/10/17 04:30 Schistocytes Not Reportable 01/10/17 04:30 Malaria parasites Not Reportable 01/10/17 04:30 Kyle Bodies Not Reportable 01/10/17 04:30 Hem Pathologist Commnt No 01/10/17 04:30 PT 14.1 Sec. (12.2-14.9) 01/17/17 04:10 INR 1.04 (0.87-1.13) 01/17/17 04:10 APTT 36.6 Sec. (24.2-36.6) 01/17/17 04:10 POC ABG pH 7.442 (7.35-7.45) 01/31/17 18:55 ABG pH 7.420 pH Units (7.350-7.450) 01/17/17 04:35 POC ABG pCO2 32.8 (35-45) L 01/31/17 18:55 ABG pCO2 34.5 mm Hg 01/17/17 04:35 POC ABG pO2 82 (80-105) 01/31/17 18:55 ABG pO2 160.3 mm Hg (80.0-90.0) H 01/17/17 04:35 POC ABG HCO3 22.4 01/31/17 18:55 ABG HCO3 21.9 mmol/L (20.0-26.0) 01/17/17 04:35 POC ABG Total CO2 23 01/31/17 18:55 POC ABG O2 Sat 97 01/31/17 18:55 ABG O2 Saturation 99.0 % (95.0-99.0) 01/17/17 04:35 ABG O2 Content 11.1 (0.0-44) 01/17/17 04:35 POC ABG Base Excess -2 01/31/17 18:55 ABG Base Excess -2.3 mmol/L (-2.0-3.0) L 01/17/17 04:35 ABG Hemoglobin 7.9 gm/dl (14.0-18.0) L 01/17/17 04:35 ABG Carboxyhemoglobin 1.5 % (0.0-5.0) 01/17/17 04:35 ABG Methemoglobin 0.5 % (0.0-1.5) 01/17/17 04:35 VBG pH 7.284 (7.320-7.420) L 01/09/17 10:16 Oxyhemoglobin 97.1 % (95.0-99.0) 01/17/17 04:35 FiO2 25 % 01/31/17 18:55 Sodium 137 mmol/L (137-145) 02/09/17 07:24 Potassium 4.9 mmol/L (3.6-5.0) 02/09/17 07:24 Chloride 95.5 mmol/L (98-107) L 02/09/17 07:24 Carbon Dioxide 29 mmol/L (22-30) 02/09/17 07:24 Anion Gap 17 mmol/L 02/09/17 07:24 BUN 52 mg/dL (9-20) H 02/09/17 07:24 Creatinine 0.8 mg/dL (0.8-1.5) 02/09/17 07:24 Estimated GFR > 60 ml/min 02/09/17 07:24 BUN/Creatinine Ratio 65 % 02/09/17 07:24 Glucose 277 mg/dL (75-100) H 02/09/17 07:24 POC Glucose 112 (70-105) H 02/17/17 17:02 Lactic Acid 0.80 mmol/L (0.7-2.0) 01/30/17 11:49 Calcium 9.4 mg/dL (8.4-10.2) 02/09/17 07:24 Phosphorus 3.60 mg/dL (2.5-4.5) 01/22/17 04:00 Magnesium 2.10 mg/dL (1.7-2.3) 01/22/17 04:00 Total Bilirubin 0.30 mg/dL (0.1-1.2) 01/22/17 04:00 AST 44 units/L (5-40) H 01/22/17 04:00 ALT 23 units/L (7-56) 01/22/17 04:00 Alkaline Phosphatase 379 units/L (35-129) H 01/22/17 04:00 Ammonia 35.0 umol/L (25-60) 01/09/17 10:16 Total Creatine Kinase 135 units/L (55-170) 01/09/17 10:16 CK-MB (CK-2) 7.1 ng/mL (0.0-4.0) H 01/09/17 10:16 CK-MB (CK-2) Rel Index 5.2 (0-4) H 01/09/17 10:16 Troponin T < 0.010 ng/mL (0.00-0.029) 01/09/17 10:16 NT-Pro-B Natriuret Pep 602.9 pg/mL (0-900) 01/09/17 10:16 Total Protein 7.9 g/dL (6.3-8.2) 01/22/17 04:00 Albumin 2.7 g/dL (3.9-5) L 01/22/17 04:00 Albumin/Globulin Ratio 0.5 % 01/22/17 04:00 TSH 52.800 mlU/mL (0.270-4.200) H 01/09/17 10:16 Free T4 0.78 ng/dL (0.76-1.46) 01/09/17 10:16 Total Cortisol 54.8 mcg/dL () 01/09/17 16:19 Urine Color Yellow (Yellow) 01/28/17 17:52 Urine Turbidity Clear (Clear) 01/28/17 17:52 Urine pH 6.0 (5.0-7.0) 01/28/17 17:52 Ur Specific [place] 1.016 (1.003-1.030) 01/28/17 17:52 Urine Protein 100 mg/dl mg/dL (Negative) 01/28/17 17:52 Urine Glucose (UA) >=500 mg/dL (Negative) 01/28/17 17:52 Urine Ketones Neg mg/dL (Negative) 01/28/17 17:52 Urine Blood Sm (Negative) 01/28/17 17:52 Urine Nitrite Neg (Negative) 01/28/17 17:52 Urine Bilirubin Neg (Negative) 01/28/17 17:52 Urine Urobilinogen < 2.0 mg/dL (<2.0) 01/28/17 17:52 Ur Leukocyte Esterase Lg (Negative) 01/28/17 17:52 Urine WBC (Auto) > 182.0 /HPF (0.0-6.0) H 01/28/17 17:52 Urine RBC (Auto) 113.0 /HPF (0.0-6.0) 01/28/17 17:52 Urine Bacteria (Auto) 2+ /HPF (Negative) 01/28/17 17:52 Urine WBC Clumps 3+ /HPF 01/28/17 17:52 Urine Mucus Few /HPF 01/14/17 14:07 Urine Yeast (Budding) 3+ /HPF 01/14/17 14:07 Salicylates < 0.3 mg/dL (2.8-20.0) L 01/09/17 10:16 Urine Opiates Screen Presumptive negative 01/09/17 10:23 Urine Methadone Screen Presumptive negative 01/09/17 10:23 Acetaminophen < 15.0 ug/mL (10.0-30.0) 01/09/17 10:16 Ur Barbiturates Screen Presumptive negative 01/09/17 10:23 Ur Phencyclidine Scrn Presumptive negative 01/09/17 10:23 Ur Amphetamines Screen Presumptive negative 01/09/17 10:23 U Benzodiazepines Scrn Presumptive negative 01/09/17 10:23 Urine Cocaine Screen Presumptive negative 01/09/17 10:23 U Marijuana (THC) Screen Presumptive negative 01/09/17 10:23 Drugs of Abuse Note Disclamer 01/09/17 10:23 Plasma/Serum Alcohol < 0.01 gm% (0-0.07) 01/09/17 10:16
[2017-02-18] MEDS: SYNTHROID PO SCH (05:39)
[2017-02-18] MEDS: NOVOLOG SUB-Q SCH ×2 (06:23→15:43)
[2017-02-18] MEDS: NORMODYNE PO SCH ×2 (10:11→21:37)
[2017-02-18] MEDS: PEPCID PO SCH ×2 (10:12→21:36)
[2017-02-18] MEDS: HEPARIN SUB-Q SCH ×2 (10:12→21:37)
[2017-02-18] MEDS: LEVEMIR (NF) SUB-Q SCH (10:17)
--- NOTE | 2017-02-18 11:32 | Progress Note ---
Assessment and Plan 51 y/o male found down, concern for sepsis and now encephalopathic requiring mechanical ventilation. No New recs for today. 1. continue supportive care 2. Spoke with Risk and the [employer]NAGER [employer] IN[employer] has requested that guardianship be persued. Dilemma is, once patient has been awarded guardianship, who will take him. Morally and ethically, given the prognosis provided by neurology, I do not feel placing a tracheostomy is the right thing to do. 3. Will change vitals and physical assessment by nursing to q12 hours 4. change accuchecks to q8 CCT 31 minutes. Subjective Date of service: 02/18/17 Principal diagnosis: Acute respiratory failure,encephalopathy Interval history: Still having occasional periods of apnea. Tolerating PSV today. Objective Vital Signs - 12hr 02/17/17 02/18/17 02/18/17 23:36 00:00 00:26 Temperature 98.9 F Pulse Rate 68 70 67 Pulse Rate [ 67 From Monitor] Pulse Rate [ Left Dorsalis Pedis] Pulse Rate [ Left Radial] Pulse Rate [ Right Dorsalis Pedis] Pulse Rate [ Right Radial] Respiratory 12 12 Rate Blood Pressure 132/83 128/85 128/85 O2 Sat by Pulse 100 99 100 Oximetry 02/18/17 02/18/17 02/18/17 02:00 04:00 04:40 Temperature 99.2 F Pulse Rate 67 68 71 Pulse Rate [ From Monitor] Pulse Rate [ Left Dorsalis Pedis] Pulse Rate [ Left Radial] Pulse Rate [ Right Dorsalis Pedis] Pulse Rate [ Right Radial] Respiratory 12 14 Rate Blood Pressure 128/85 147/88 147/88 O2 Sat by Pulse 100 100 100 Oximetry 02/18/17 02/18/17 02/18/17 06:00 08:00 08:25 Temperature 97.6 F Pulse Rate 71 72 73 Pulse Rate [ 70 From Monitor] Pulse Rate [ 70 Left Dorsalis Pedis] Pulse Rate [ 70 Left Radial] Pulse Rate [ 70 Right Dorsalis Pedis] Pulse Rate [ 70 Right Radial] Respiratory 12 27 H Rate Blood Pressure 151/89 119/77 119/77 O2 Sat by Pulse 100 99 100 Oximetry 02/18/17 02/18/17 02/18/17 08:35 10:00 10:11 Temperature Pulse Rate 73 78 78 Pulse Rate [ From Monitor] Pulse Rate [ Left Dorsalis Pedis] Pulse Rate [ Left Radial] Pulse Rate [ Right Dorsalis Pedis] Pulse Rate [ Right Radial] Respiratory 26 H 28 H Rate Blood Pressure 119/77 119/77 116/79 O2 Sat by Pulse 98 100 Oximetry 02/18/17 10:52 Temperature Pulse Rate 71 Pulse Rate [ From Monitor] Pulse Rate [ Left Dorsalis Pedis] Pulse Rate [ Left Radial] Pulse Rate [ Right Dorsalis Pedis] Pulse Rate [ Right Radial] Respiratory 26 H Rate Blood Pressure 116/79 O2 Sat by Pulse 99 Oximetry Constitutional: comatose, other (orally intubated, on vent) Eyes: non-icteric ENT: oropharynx moist Neck: supple Effort: normal Ascultation: Bilateral: clear, diminished breath sounds Cardiovascular: regular rate and rhythm (no mrg) Gastrointestinal: normoactive bowel sounds, soft, non-tender, non-distended Integumentary: normal Extremities: no cyanosis, no edema, pink and warm Neurologic: other (unresponsive, flaccid extremities) Psychiatric: other (unable to obtain) CBC and BMP: 02/09/17 07:24 02/09/17 07:24 ABG, PT/INR, D-dimer: ABG POC ABG pH 7.442 (7.35-7.45) 01/31/17 18:55 ABG pH 7.420 pH Units (7.350-7.450) 01/17/17 04:35 POC ABG pCO2 32.8 (35-45) L 01/31/17 18:55 ABG pCO2 34.5 mm Hg 01/17/17 04:35 POC ABG pO2 82 (80-105) 01/31/17 18:55 ABG pO2 160.3 mm Hg (80.0-90.0) H 01/17/17 04:35 POC ABG HCO3 22.4 01/31/17 18:55 POC ABG Total CO2 23 01/31/17 18:55 POC ABG O2 Sat 97 01/31/17 18:55 ABG O2 Saturation 99.0 % (95.0-99.0) 01/17/17 04:35 PT/INR, D-dimer PT 14.1 Sec. (12.2-14.9) 01/17/17 04:10 INR 1.04 (0.87-1.13) 01/17/17 04:10 Abnormal lab findings: Abnormal Labs 01/09/17 01/09/17 01/09/17 12:49 13:13 14:21 WBC RBC Hgb Hct MCV MCH RDW Plt Count Lymph % (Auto) [place] % (Auto) Eos % (Auto) Seg Neutrophils % Seg Neuts % (Manual) Lymphocytes % (Manual) Seg Neutrophils # Seg Neutrophils # Man Lymphocytes # (Manual) POC ABG pH ABG pH POC ABG pCO2 POC ABG pO2 ABG pO2 ABG HCO3 ABG Base Excess ABG Hemoglobin Oxyhemoglobin Sodium Potassium Chloride Carbon Dioxide BUN Creatinine Glucose POC Glucose < 40 L 128 H 65 L Lactic Acid Calcium AST Alkaline Phosphatase Albumin Urine WBC (Auto) 01/09/17 01/09/17 01/09/17 15:09 16:28 17:14 WBC RBC Hgb Hct MCV MCH RDW Plt Count Lymph % (Auto) [place] % (Auto) Eos % (Auto) Seg Neutrophils % Seg Neuts % (Manual) Lymphocytes % (Manual) Seg Neutrophils # Seg Neutrophils # Man Lymphocytes # (Manual) POC ABG pH ABG pH POC ABG pCO2 POC ABG pO2 ABG pO2 ABG HCO3 ABG Base Excess ABG Hemoglobin Oxyhemoglobin Sodium Potassium Chloride Carbon Dioxide BUN Creatinine Glucose POC Glucose 120 H 44 L 112 H Lactic Acid Calcium AST Alkaline Phosphatase Albumin Urine WBC (Auto) 01/10/17 01/10/17 01/10/17 04:30 04:30 05:41 WBC 24.1 H RBC 3.38 L Hgb 8.5 L Hct 26.0 L MCV 77 L MCH 25 L RDW 17.9 H Plt Count 474 H Lymph % (Auto) [place] % (Auto) Eos % (Auto) Seg Neutrophils % Seg Neuts % (Manual) 88.0 H Lymphocytes % (Manual) 4.0 L Seg Neutrophils # Seg Neutrophils # Man 21.2 H Lymphocytes # (Manual) 1.0 L POC ABG pH ABG pH POC ABG pCO2 POC ABG pO2 ABG pO2 ABG HCO3 ABG Base Excess ABG Hemoglobin Oxyhemoglobin Sodium Potassium Chloride Carbon Dioxide 17 L BUN 27 H Creatinine Glucose POC Glucose 68 L Lactic Acid Calcium 7.5 L AST Alkaline Phosphatase Albumin Urine WBC (Auto) 01/10/17 01/10/17 01/10/17 05:45 07:47 10:50 WBC RBC Hgb Hct MCV MCH RDW Plt Count Lymph % (Auto) [place] % (Auto) Eos % (Auto) Seg Neutrophils % Seg Neuts % (Manual) Lymphocytes % (Manual) Seg Neutrophils # Seg Neutrophils # Man Lymphocytes # (Manual) POC ABG pH ABG pH POC ABG pCO2 26.6 L POC ABG pO2 207 H ABG pO2 ABG HCO3 ABG Base Excess ABG Hemoglobin Oxyhemoglobin Sodium Potassium Chloride Carbon Dioxide BUN Creatinine Glucose POC Glucose 148 H 165 H Lactic Acid Calcium AST Alkaline Phosphatase Albumin Urine WBC (Auto) 01/10/17 01/10/17 01/10/17 13:41 20:20 21:39 WBC RBC Hgb Hct MCV MCH RDW Plt Count Lymph % (Auto) [place] % (Auto) Eos % (Auto) Seg Neutrophils % Seg Neuts % (Manual) Lymphocytes % (Manual) Seg Neutrophils # Seg Neutrophils # Man Lymphocytes # (Manual) POC ABG pH ABG pH POC ABG pCO2 POC ABG pO2 ABG pO2 ABG HCO3 ABG Base Excess ABG Hemoglobin Oxyhemoglobin Sodium Potassium Chloride Carbon Dioxide BUN Creatinine Glucose POC Glucose 114 H 150 H 175 H Lactic Acid Calcium AST Alkaline Phosphatase Albumin Urine WBC (Auto) 01/10/17 01/11/17 01/11/17 23:24 00:19 04:06 WBC RBC Hgb Hct MCV MCH RDW Plt Count Lymph % (Auto) [place] % (Auto) Eos % (Auto) Seg Neutrophils % Seg Neuts % (Manual) Lymphocytes % (Manual) Seg Neutrophils # Seg Neutrophils # Man Lymphocytes # (Manual) POC ABG pH 7.463 H ABG pH POC ABG pCO2 26.2 L POC ABG pO2 185 H ABG pO2 ABG HCO3 ABG Base Excess ABG Hemoglobin Oxyhemoglobin Sodium Potassium Chloride Carbon Dioxide BUN Creatinine Glucose POC Glucose 155 H 163 H Lactic Acid Calcium AST Alkaline Phosphatase Albumin Urine WBC (Auto) 01/11/17 01/11/17 01/11/17 05:20 05:20 06:21 WBC 15.2 H RBC 3.40 L Hgb 8.9 L Hct 26.3 L MCV 78 L MCH 26 L RDW 18.6 H Plt Count 462 H Lymph % (Auto) 13.2 L [place] % (Auto) Eos % (Auto) Seg Neutrophils % 80.8 H Seg Neuts % (Manual) Lymphocytes % (Manual) Seg Neutrophils # 12.3 H Seg Neutrophils # Man Lymphocytes # (Manual) POC ABG pH ABG pH POC ABG pCO2 POC ABG pO2 ABG pO2 ABG HCO3 ABG Base Excess ABG Hemoglobin Oxyhemoglobin Sodium Potassium 3.4 L Chloride 111.5 H Carbon Dioxide 17 L BUN Creatinine Glucose 147 H POC Glucose 139 H Lactic Acid Calcium 8.0 L AST Alkaline Phosphatase Albumin Urine WBC (Auto) 01/11/17 01/11/17 01/11/17 07:57 11:46 16:50 WBC RBC Hgb Hct MCV MCH RDW Plt Count Lymph % (Auto) [place] % (Auto) Eos % (Auto) Seg Neutrophils % Seg Neuts % (Manual) Lymphocytes % (Manual) Seg Neutrophils # Seg Neutrophils # Man Lymphocytes # (Manual) POC ABG pH ABG pH POC ABG pCO2 POC ABG pO2 ABG pO2 ABG HCO3 ABG Base Excess ABG Hemoglobin Oxyhemoglobin Sodium Potassium Chloride Carbon Dioxide BUN Creatinine Glucose POC Glucose 188 H 199 H 235 H Lactic Acid Calcium AST Alkaline Phosphatase Albumin Urine WBC (Auto) 01/11/17 01/12/17 01/12/17 23:15 05:02 06:56 WBC RBC Hgb Hct MCV MCH RDW Plt Count Lymph % (Auto) [place] % (Auto) Eos % (Auto) Seg Neutrophils % Seg Neuts % (Manual) Lymphocytes % (Manual) Seg Neutrophils # Seg Neutrophils # Man Lymphocytes # (Manual) POC ABG pH ABG pH POC ABG pCO2 28.0 L POC ABG pO2 178 H ABG pO2 ABG HCO3 ABG Base Excess ABG Hemoglobin Oxyhemoglobin Sodium Potassium Chloride Carbon Dioxide BUN Creatinine Glucose POC Glucose 155 H 119 H Lactic Acid Calcium AST Alkaline Phosphatase Albumin Urine WBC (Auto) 01/12/17 01/13/17 01/13/17 14:50 03:37 03:37 WBC RBC 3.61 L Hgb 9.3 L Hct 28.0 L MCV 78 L MCH 26 L RDW 18.2 H Plt Count Lymph % (Auto) [place] % (Auto) Eos % (Auto) Seg Neutrophils % Seg Neuts % (Manual) Lymphocytes % (Manual) Seg Neutrophils # Seg Neutrophils # Man Lymphocytes # (Manual) POC ABG pH ABG pH POC ABG pCO2 POC ABG pO2 ABG pO2 ABG HCO3 ABG Base Excess ABG Hemoglobin Oxyhemoglobin Sodium Potassium Chloride 112.4 H Carbon Dioxide 19 L BUN Creatinine Glucose 118 H POC Glucose 164 H Lactic Acid Calcium 8.0 L AST Alkaline Phosphatase Albumin Urine WBC (Auto) 01/13/17 01/13/17 01/13/17 04:26 06:15 11:50 WBC RBC Hgb Hct MCV MCH RDW Plt Count Lymph % (Auto) [place] % (Auto) Eos % (Auto) Seg Neutrophils % Seg Neuts % (Manual) Lymphocytes % (Manual) Seg Neutrophils # Seg Neutrophils # Man Lymphocytes # (Manual) POC ABG pH 7.485 H ABG pH POC ABG pCO2 25.4 L POC ABG pO2 73 L ABG pO2 ABG HCO3 ABG Base Excess ABG Hemoglobin Oxyhemoglobin Sodium Potassium Chloride Carbon Dioxide BUN Creatinine Glucose POC Glucose 116 H 171 H Lactic Acid Calcium AST Alkaline Phosphatase Albumin Urine WBC (Auto) 01/13/17 01/14/17 01/14/17 17:31 00:02 04:50 WBC RBC 3.32 L Hgb 8.5 L Hct 26.1 L MCV 79 L MCH 26 L RDW 18.2 H Plt Count Lymph % (Auto) [place] % (Auto) 9.0 H Eos % (Auto) Seg Neutrophils % Seg Neuts % (Manual) Lymphocytes % (Manual) Seg Neutrophils # Seg Neutrophils # Man Lymphocytes # (Manual) POC ABG pH ABG pH POC ABG pCO2 POC ABG pO2 ABG pO2 ABG HCO3 ABG Base Excess ABG Hemoglobin Oxyhemoglobin Sodium Potassium Chloride Carbon Dioxide BUN Creatinine Glucose POC Glucose 203 H 157 H Lactic Acid Calcium AST Alkaline Phosphatase Albumin Urine WBC (Auto) 01/14/17 01/14/17 01/14/17 04:50 05:10 11:27 WBC RBC Hgb Hct MCV MCH RDW Plt Count Lymph % (Auto) [place] % (Auto) Eos % (Auto) Seg Neutrophils % Seg Neuts % (Manual) Lymphocytes % (Manual) Seg Neutrophils # Seg Neutrophils # Man Lymphocytes # (Manual) POC ABG pH ABG pH POC ABG pCO2 POC ABG pO2 ABG pO2 ABG HCO3 ABG Base Excess ABG Hemoglobin Oxyhemoglobin Sodium Potassium Chloride 112.5 H Carbon Dioxide BUN Creatinine Glucose 149 H POC Glucose 176 H 147 H Lactic Acid Calcium 8.1 L AST Alkaline Phosphatase Albumin Urine WBC (Auto) 01/14/17 01/14/17 01/15/17 14:07 16:52 00:04 WBC RBC Hgb Hct MCV MCH RDW Plt Count Lymph % (Auto) [place] % (Auto) Eos % (Auto) Seg Neutrophils % Seg Neuts % (Manual) Lymphocytes % (Manual) Seg Neutrophils # Seg Neutrophils # Man Lymphocytes # (Manual) POC ABG pH ABG pH POC ABG pCO2 POC ABG pO2 ABG pO2 ABG HCO3 ABG Base Excess ABG Hemoglobin Oxyhemoglobin Sodium Potassium Chloride Carbon Dioxide BUN Creatinine Glucose POC Glucose 131 H 193 H Lactic Acid Calcium AST Alkaline Phosphatase Albumin Urine WBC (Auto) 53.0 H 01/15/17 01/15/17 01/15/17 05:26 11:49 17:47 WBC RBC Hgb Hct MCV MCH RDW Plt Count Lymph % (Auto) [place] % (Auto) Eos % (Auto) Seg Neutrophils % Seg Neuts % (Manual) Lymphocytes % (Manual) Seg Neutrophils # Seg Neutrophils # Man Lymphocytes # (Manual) POC ABG pH ABG pH POC ABG pCO2 POC ABG pO2 ABG pO2 ABG HCO3 ABG Base Excess ABG Hemoglobin Oxyhemoglobin Sodium Potassium Chloride Carbon Dioxide BUN Creatinine Glucose POC Glucose 215 H 121 H 211 H Lactic Acid Calcium AST Alkaline Phosphatase Albumin Urine WBC (Auto) 01/15/17 01/16/17 01/16/17 21:33 04:30 05:28 WBC RBC Hgb Hct MCV MCH RDW Plt Count Lymph % (Auto) [place] % (Auto) Eos % (Auto) Seg Neutrophils % Seg Neuts % (Manual) Lymphocytes % (Manual) Seg Neutrophils # Seg Neutrophils # Man Lymphocytes # (Manual) POC ABG pH ABG pH 7.457 H POC ABG pCO2 POC ABG pO2 ABG pO2 55.1 L ABG HCO3 19.4 L ABG Base Excess -4.0 L ABG Hemoglobin 6.8 L Oxyhemoglobin 94.9 L Sodium Potassium Chloride Carbon Dioxide BUN Creatinine Glucose POC Glucose 275 H 271 H Lactic Acid Calcium AST Alkaline Phosphatase Albumin Urine WBC (Auto) 01/16/17 01/16/17 01/17/17 13:45 21:39 04:10 WBC 4.4 L RBC 2.98 L Hgb 7.7 L Hct 23.3 L MCV 78 L MCH 26 L RDW 18.1 H Plt Count Lymph % (Auto) [place] % (Auto) Eos % (Auto) Seg Neutrophils % Seg Neuts % (Manual) Lymphocytes % (Manual) Seg Neutrophils # Seg Neutrophils # Man Lymphocytes # (Manual) POC ABG pH ABG pH POC ABG pCO2 POC ABG pO2 ABG pO2 ABG HCO3 ABG Base Excess ABG Hemoglobin Oxyhemoglobin Sodium Potassium Chloride Carbon Dioxide BUN Creatinine Glucose POC Glucose 236 H 258 H Lactic Acid Calcium AST Alkaline Phosphatase Albumin Urine WBC (Auto) 01/17/17 01/17/17 01/17/17 04:10 04:35 12:23 WBC RBC Hgb Hct MCV MCH RDW Plt Count Lymph % (Auto) [place] % (Auto) Eos % (Auto) Seg Neutrophils % Seg Neuts % (Manual) Lymphocytes % (Manual) Seg Neutrophils # Seg Neutrophils # Man Lymphocytes # (Manual) POC ABG pH ABG pH POC ABG pCO2 POC ABG pO2 ABG pO2 160.3 H ABG HCO3 ABG Base Excess -2.3 L ABG Hemoglobin 7.9 L Oxyhemoglobin Sodium Potassium 3.3 L Chloride 108.7 H Carbon Dioxide 20 L BUN 8 L Creatinine Glucose 202 H POC Glucose 321 H Lactic Acid Calcium 7.6 L AST Alkaline Phosphatase Albumin Urine WBC (Auto) 01/17/17 01/18/17 01/18/17 16:01 05:07 12:09 WBC RBC Hgb Hct MCV MCH RDW Plt Count Lymph % (Auto) [place] % (Auto) Eos % (Auto) Seg Neutrophils % Seg Neuts % (Manual) Lymphocytes % (Manual) Seg Neutrophils # Seg Neutrophils # Man Lymphocytes # (Manual) POC ABG pH ABG pH POC ABG pCO2 POC ABG pO2 ABG pO2 ABG HCO3 ABG Base Excess ABG Hemoglobin Oxyhemoglobin Sodium Potassium Chloride Carbon Dioxide BUN Creatinine Glucose POC Glucose 239 H 155 H 203 H Lactic Acid Calcium AST Alkaline Phosphatase Albumin Urine WBC (Auto) 01/18/17 01/18/17 01/19/17 17:54 23:43 04:28 WBC RBC Hgb Hct MCV MCH RDW Plt Count Lymph % (Auto) [place] % (Auto) Eos % (Auto) Seg Neutrophils % Seg Neuts % (Manual) Lymphocytes % (Manual) Seg Neutrophils # Seg Neutrophils # Man Lymphocytes # (Manual) POC ABG pH ABG pH POC ABG pCO2 POC ABG pO2 ABG pO2 ABG HCO3 ABG Base Excess ABG Hemoglobin Oxyhemoglobin Sodium Potassium Chloride Carbon Dioxide BUN Creatinine Glucose POC Glucose 132 H 125 H 182 H Lactic Acid Calcium AST Alkaline Phosphatase Albumin Urine WBC (Auto) 01/19/17 01/19/17 01/20/17 12:11 17:23 00:12 WBC RBC Hgb Hct MCV MCH RDW Plt Count Lymph % (Auto) [place] % (Auto) Eos % (Auto) Seg Neutrophils % Seg Neuts % (Manual) Lymphocytes % (Manual) Seg Neutrophils # Seg Neutrophils # Man Lymphocytes # (Manual) POC ABG pH ABG pH POC ABG pCO2 POC ABG pO2 ABG pO2 ABG HCO3 ABG Base Excess ABG Hemoglobin Oxyhemoglobin Sodium Potassium Chloride Carbon Dioxide BUN Creatinine Glucose POC Glucose 153 H 66 L 139 H Lactic Acid Calcium AST Alkaline Phosphatase Albumin Urine WBC (Auto) 01/20/17 01/20/17 01/20/17 05:44 11:48 17:42 WBC RBC Hgb Hct MCV MCH RDW Plt Count Lymph % (Auto) [place] % (Auto) Eos % (Auto) Seg Neutrophils % Seg Neuts % (Manual) Lymphocytes % (Manual) Seg Neutrophils # Seg Neutrophils # Man Lymphocytes # (Manual) POC ABG pH ABG pH POC ABG pCO2 POC ABG pO2 ABG pO2 ABG HCO3 ABG Base Excess ABG Hemoglobin Oxyhemoglobin Sodium Potassium Chloride Carbon Dioxide BUN Creatinine Glucose POC Glucose 176 H 218 H 132 H Lactic Acid Calcium AST Alkaline Phosphatase Albumin Urine WBC (Auto) 01/20/17 01/21/17 01/21/17 23:43 05:34 11:17 WBC RBC Hgb Hct MCV MCH RDW Plt Count Lymph % (Auto) [place] % (Auto) Eos % (Auto) Seg Neutrophils % Seg Neuts % (Manual) Lymphocytes % (Manual) Seg Neutrophils # Seg Neutrophils # Man Lymphocytes # (Manual) POC ABG pH ABG pH POC ABG pCO2 POC ABG pO2 ABG pO2 ABG HCO3 ABG Base Excess ABG Hemoglobin Oxyhemoglobin Sodium Potassium Chloride Carbon Dioxide BUN Creatinine Glucose POC Glucose 178 H 106 H 213 H Lactic Acid Calcium AST Alkaline Phosphatase Albumin Urine WBC (Auto) 01/21/17 01/22/17 01/22/17 23:37 04:00 04:00 WBC RBC 3.26 L Hgb 8.3 L Hct 25.5 L MCV 78 L MCH 25 L RDW 17.9 H Plt Count Lymph % (Auto) [place] % (Auto) 7.9 H Eos % (Auto) 6.2 H Seg Neutrophils % Seg Neuts % (Manual) Lymphocytes % (Manual) Seg Neutrophils # Seg Neutrophils # Man Lymphocytes # (Manual) POC ABG pH ABG pH POC ABG pCO2 POC ABG pO2 ABG pO2 ABG HCO3 ABG Base Excess ABG Hemoglobin Oxyhemoglobin Sodium Potassium Chloride 95.5 L Carbon Dioxide 31 H D BUN Creatinine Glucose 134 H POC Glucose 140 H Lactic Acid Calcium AST 44 H Alkaline Phosphatase 379 H Albumin 2.7 L Urine WBC (Auto) 01/22/17 01/22/17 01/22/17 04:58 12:12 18:12 WBC RBC Hgb Hct MCV MCH RDW Plt Count Lymph % (Auto) [place] % (Auto) Eos % (Auto) Seg Neutrophils % Seg Neuts % (Manual) Lymphocytes % (Manual) Seg Neutrophils # Seg Neutrophils # Man Lymphocytes # (Manual) POC ABG pH ABG pH POC ABG pCO2 POC ABG pO2 ABG pO2 ABG HCO3 ABG Base Excess ABG Hemoglobin Oxyhemoglobin Sodium Potassium Chloride Carbon Dioxide BUN Creatinine Glucose POC Glucose 146 H 255 H 182 H Lactic Acid Calcium AST Alkaline Phosphatase Albumin Urine WBC (Auto) 01/22/17 01/23/17 01/23/17 23:39 04:43 12:12 WBC RBC Hgb Hct MCV MCH RDW Plt Count Lymph % (Auto) [place] % (Auto) Eos % (Auto) Seg Neutrophils % Seg Neuts % (Manual) Lymphocytes % (Manual) Seg Neutrophils # Seg Neutrophils # Man Lymphocytes # (Manual) POC ABG pH ABG pH POC ABG pCO2 POC ABG pO2 ABG pO2 ABG HCO3 ABG Base Excess ABG Hemoglobin Oxyhemoglobin Sodium Potassium Chloride Carbon Dioxide BUN Creatinine Glucose POC Glucose 134 H 218 H 128 H Lactic Acid Calcium AST Alkaline Phosphatase Albumin Urine WBC (Auto) 01/23/17 01/24/17 01/24/17 17:36 00:08 05:16 WBC RBC Hgb Hct MCV MCH RDW Plt Count Lymph % (Auto) [place] % (Auto) Eos % (Auto) Seg Neutrophils % Seg Neuts % (Manual) Lymphocytes % (Manual) Seg Neutrophils # Seg Neutrophils # Man Lymphocytes # (Manual) POC ABG pH ABG pH POC ABG pCO2 POC ABG pO2 ABG pO2 ABG HCO3 ABG Base Excess ABG Hemoglobin Oxyhemoglobin Sodium Potassium Chloride Carbon Dioxide BUN Creatinine Glucose POC Glucose 156 H 129 H 169 H Lactic Acid Calcium AST Alkaline Phosphatase Albumin Urine WBC (Auto) 01/24/17 01/24/17 01/24/17 11:40 17:43 23:23 WBC RBC Hgb Hct MCV MCH RDW Plt Count Lymph % (Auto) [place] % (Auto) Eos % (Auto) Seg Neutrophils % Seg Neuts % (Manual) Lymphocytes % (Manual) Seg Neutrophils # Seg Neutrophils # Man Lymphocytes # (Manual) POC ABG pH ABG pH POC ABG pCO2 POC ABG pO2 ABG pO2 ABG HCO3 ABG Base Excess ABG Hemoglobin Oxyhemoglobin Sodium Potassium Chloride Carbon Dioxide BUN Creatinine Glucose POC Glucose 187 H 215 H 222 H Lactic Acid Calcium AST Alkaline Phosphatase Albumin Urine WBC (Auto) 01/25/17 01/25/17 01/25/17 04:56 11:52 17:37 WBC RBC Hgb Hct MCV MCH RDW Plt Count Lymph % (Auto) [place] % (Auto) Eos % (Auto) Seg Neutrophils % Seg Neuts % (Manual) Lymphocytes % (Manual) Seg Neutrophils # Seg Neutrophils # Man Lymphocytes # (Manual) POC ABG pH ABG pH POC ABG pCO2 POC ABG pO2 ABG pO2 ABG HCO3 ABG Base Excess ABG Hemoglobin Oxyhemoglobin Sodium Potassium Chloride Carbon Dioxide BUN Creatinine Glucose POC Glucose 210 H 284 H 218 H Lactic Acid Calcium AST Alkaline Phosphatase Albumin Urine WBC (Auto) 01/26/17 01/26/17 01/26/17 00:02 05:33 12:17 WBC RBC Hgb Hct MCV MCH RDW Plt Count Lymph % (Auto) [place] % (Auto) Eos % (Auto) Seg Neutrophils % Seg Neuts % (Manual) Lymphocytes % (Manual) Seg Neutrophils # Seg Neutrophils # Man Lymphocytes # (Manual) POC ABG pH ABG pH POC ABG pCO2 POC ABG pO2 ABG pO2 ABG HCO3 ABG Base Excess ABG Hemoglobin Oxyhemoglobin Sodium Potassium Chloride Carbon Dioxide BUN Creatinine Glucose POC Glucose 192 H 199 H 227 H Lactic Acid Calcium AST Alkaline Phosphatase Albumin Urine WBC (Auto) 01/26/17 01/26/17 01/27/17 17:50 23:57 05:31 WBC RBC Hgb Hct MCV MCH RDW Plt Count Lymph % (Auto) [place] % (Auto) Eos % (Auto) Seg Neutrophils % Seg Neuts % (Manual) Lymphocytes % (Manual) Seg Neutrophils # Seg Neutrophils # Man Lymphocytes # (Manual) POC ABG pH ABG pH POC ABG pCO2 POC ABG pO2 ABG pO2 ABG HCO3 ABG Base Excess ABG Hemoglobin Oxyhemoglobin Sodium Potassium Chloride Carbon Dioxide BUN Creatinine Glucose POC Glucose 229 H 186 H 285 H Lactic Acid Calcium AST Alkaline Phosphatase Albumin Urine WBC (Auto) 01/27/17 01/27/17 01/27/17 11:42 17:47 23:58 WBC RBC Hgb Hct MCV MCH RDW Plt Count Lymph % (Auto) [place] % (Auto) Eos % (Auto) Seg Neutrophils % Seg Neuts % (Manual) Lymphocytes % (Manual) Seg Neutrophils # Seg Neutrophils # Man Lymphocytes # (Manual) POC ABG pH ABG pH POC ABG pCO2 POC ABG pO2 ABG pO2 ABG HCO3 ABG Base Excess ABG Hemoglobin Oxyhemoglobin Sodium Potassium Chloride Carbon Dioxide BUN Creatinine Glucose POC Glucose 260 H 329 H 225 H Lactic Acid Calcium AST Alkaline Phosphatase Albumin Urine WBC (Auto) 01/27/17 01/27/17 01/28/17 Unknown Unknown 03:44 WBC 12.1 H RBC 3.28 L 3.14 L Hgb 8.5 L 8.2 L Hct 25.5 L 24.1 L MCV 78 L 77 L MCH 26 L 26 L RDW 16.8 H 16.9 H Plt Count 601 H 567 H Lymph % (Auto) [place] % (Auto) Eos % (Auto) Seg Neutrophils % Seg Neuts % (Manual) Lymphocytes % (Manual) Seg Neutrophils # Seg Neutrophils # Man Lymphocytes # (Manual) POC ABG pH ABG pH POC ABG pCO2 POC ABG pO2 ABG pO2 ABG HCO3 ABG Base Excess ABG Hemoglobin Oxyhemoglobin Sodium 128 L Potassium 5.4 H Chloride 87.5 L Carbon Dioxide BUN 44 H Creatinine Glucose 250 H POC Glucose Lactic Acid Calcium AST Alkaline Phosphatase Albumin Urine WBC (Auto) 01/28/17 01/28/17 01/28/17 03:44 11:43 16:47 WBC RBC Hgb Hct MCV MCH RDW Plt Count Lymph % (Auto) [place] % (Auto) Eos % (Auto) Seg Neutrophils % Seg Neuts % (Manual) Lymphocytes % (Manual) Seg Neutrophils # Seg Neutrophils # Man Lymphocytes # (Manual) POC ABG pH ABG pH POC ABG pCO2 POC ABG pO2 ABG pO2 ABG HCO3 ABG Base Excess ABG Hemoglobin Oxyhemoglobin Sodium Potassium Chloride Carbon Dioxide BUN 42 H Creatinine Glucose 128 H POC Glucose 351 H 249 H Lactic Acid Calcium AST Alkaline Phosphatase Albumin Urine WBC (Auto) 01/28/17 01/29/17 01/29/17 17:52 05:25 05:25 WBC 13.6 H RBC 3.25 L Hgb 8.3 L Hct 25.1 L MCV 77 L MCH 26 L RDW 16.8 H Plt Count 514 H Lymph % (Auto) [place] % (Auto) Eos % (Auto) Seg Neutrophils % Seg Neuts % (Manual) Lymphocytes % (Manual) Seg Neutrophils # Seg Neutrophils # Man Lymphocytes # (Manual) POC ABG pH ABG pH POC ABG pCO2 POC ABG pO2 ABG pO2 ABG HCO3 ABG Base Excess ABG Hemoglobin Oxyhemoglobin Sodium Potassium Chloride 97.8 L Carbon Dioxide BUN 34 H Creatinine Glucose 222 H POC Glucose Lactic Acid Calcium AST Alkaline Phosphatase Albumin Urine WBC (Auto) > 182.0 H 01/29/17 01/29/17 01/29/17 09:32 11:56 18:11 WBC RBC Hgb Hct MCV MCH RDW Plt Count Lymph % (Auto) [place] % (Auto) Eos % (Auto) Seg Neutrophils % Seg Neuts % (Manual) Lymphocytes % (Manual) Seg Neutrophils # Seg Neutrophils # Man Lymphocytes # (Manual) POC ABG pH ABG pH POC ABG pCO2 POC ABG pO2 ABG pO2 ABG HCO3 ABG Base Excess ABG Hemoglobin Oxyhemoglobin Sodium Potassium Chloride Carbon Dioxide BUN Creatinine Glucose POC Glucose 261 H 215 H Lactic Acid 2.50 H* Calcium AST Alkaline Phosphatase Albumin Urine WBC (Auto) 01/29/17 01/30/17 01/30/17 23:55 05:31 05:31 WBC 15.2 H RBC 3.09 L Hgb 7.9 L Hct 23.9 L MCV 77 L MCH 26 L RDW 16.9 H Plt Count 569 H Lymph % (Auto) [place] % (Auto) Eos % (Auto) Seg Neutrophils % Seg Neuts % (Manual) Lymphocytes % (Manual) Seg Neutrophils # Seg Neutrophils # Man Lymphocytes # (Manual) POC ABG pH ABG pH POC ABG pCO2 POC ABG pO2 ABG pO2 ABG HCO3 ABG Base Excess ABG Hemoglobin Oxyhemoglobin Sodium Potassium Chloride Carbon Dioxide BUN 24 H Creatinine Glucose 235 H POC Glucose 176 H Lactic Acid Calcium AST Alkaline Phosphatase Albumin Urine WBC (Auto) 01/30/17 01/30/17 01/30/17 05:34 11:38 17:58 WBC RBC Hgb Hct MCV MCH RDW Plt Count Lymph % (Auto) [place] % (Auto) Eos % (Auto) Seg Neutrophils % Seg Neuts % (Manual) Lymphocytes % (Manual) Seg Neutrophils # Seg Neutrophils # Man Lymphocytes # (Manual) POC ABG pH ABG pH POC ABG pCO2 POC ABG pO2 ABG pO2 ABG HCO3 ABG Base Excess ABG Hemoglobin Oxyhemoglobin Sodium Potassium Chloride Carbon Dioxide BUN Creatinine Glucose POC Glucose 243 H 298 H 208 H Lactic Acid Calcium AST Alkaline Phosphatase Albumin Urine WBC (Auto) 01/30/17 01/31/17 01/31/17 23:29 04:39 04:39 WBC 11.4 H RBC 3.22 L Hgb 8.2 L Hct 24.9 L MCV 78 L MCH 25 L RDW 17.2 H Plt Count 576 H Lymph % (Auto) [place] % (Auto) Eos % (Auto) Seg Neutrophils % Seg Neuts % (Manual) Lymphocytes % (Manual) Seg Neutrophils # Seg Neutrophils # Man Lymphocytes # (Manual) POC ABG pH ABG pH POC ABG pCO2 POC ABG pO2 ABG pO2 ABG HCO3 ABG Base Excess ABG Hemoglobin Oxyhemoglobin Sodium Potassium Chloride Carbon Dioxide BUN Creatinine 0.7 L Glucose 223 H POC Glucose 245 H Lactic Acid Calcium AST Alkaline Phosphatase Albumin Urine WBC (Auto) 01/31/17 01/31/17 01/31/17 05:57 12:23 17:41 WBC RBC Hgb Hct MCV MCH RDW Plt Count Lymph % (Auto) [place] % (Auto) Eos % (Auto) Seg Neutrophils % Seg Neuts % (Manual) Lymphocytes % (Manual) Seg Neutrophils # Seg Neutrophils # Man Lymphocytes # (Manual) POC ABG pH ABG pH POC ABG pCO2 POC ABG pO2 ABG pO2 ABG HCO3 ABG Base Excess ABG Hemoglobin Oxyhemoglobin Sodium Potassium Chloride Carbon Dioxide BUN Creatinine Glucose POC Glucose 264 H 252 H 208 H Lactic Acid Calcium AST Alkaline Phosphatase Albumin Urine WBC (Auto) 01/31/17 01/31/17 02/01/17 18:55 22:59 03:38 WBC RBC 2.81 L Hgb 7.4 L Hct 22.1 L MCV 79 L MCH 27 L RDW 17.0 H Plt Count 540 H Lymph % (Auto) [place] % (Auto) Eos % (Auto) Seg Neutrophils % Seg Neuts % (Manual) Lymphocytes % (Manual) Seg Neutrophils # Seg Neutrophils # Man Lymphocytes # (Manual) POC ABG pH ABG pH POC ABG pCO2 32.8 L POC ABG pO2 ABG pO2 ABG HCO3 ABG Base Excess ABG Hemoglobin Oxyhemoglobin Sodium Potassium Chloride Carbon Dioxide BUN Creatinine Glucose POC Glucose 40 L Lactic Acid Calcium AST Alkaline Phosphatase Albumin Urine WBC (Auto) 02/01/17 02/01/17 02/01/17 03:38 05:17 12:19 WBC RBC Hgb Hct MCV MCH RDW Plt Count Lymph % (Auto) [place] % (Auto) Eos % (Auto) Seg Neutrophils % Seg Neuts % (Manual) Lymphocytes % (Manual) Seg Neutrophils # Seg Neutrophils # Man Lymphocytes # (Manual) POC ABG pH ABG pH POC ABG pCO2 POC ABG pO2 ABG pO2 ABG HCO3 ABG Base Excess ABG Hemoglobin Oxyhemoglobin Sodium Potassium Chloride Carbon Dioxide 21 L BUN Creatinine 0.7 L Glucose POC Glucose 140 H 213 H Lactic Acid Calcium AST Alkaline Phosphatase Albumin Urine WBC (Auto) 02/01/17 02/01/17 02/02/17 16:44 23:59 05:14 WBC RBC Hgb Hct MCV MCH RDW Plt Count Lymph % (Auto) [place] % (Auto) Eos % (Auto) Seg Neutrophils % Seg Neuts % (Manual) Lymphocytes % (Manual) Seg Neutrophils # Seg Neutrophils # Man Lymphocytes # (Manual) POC ABG pH ABG pH POC ABG pCO2 POC ABG pO2 ABG pO2 ABG HCO3 ABG Base Excess ABG Hemoglobin Oxyhemoglobin Sodium Potassium Chloride Carbon Dioxide BUN Creatinine Glucose POC Glucose 172 H 181 H 194 H Lactic Acid Calcium AST Alkaline Phosphatase Albumin Urine WBC (Auto) 02/02/17 02/02/17 02/02/17 11:24 11:46 11:46 WBC RBC 2.94 L Hgb 7.5 L Hct 23.0 L MCV 78 L MCH 25 L RDW 16.9 H Plt Count 520 H Lymph % (Auto) [place] % (Auto) Eos % (Auto) Seg Neutrophils % Seg Neuts % (Manual) Lymphocytes % (Manual) Seg Neutrophils # Seg Neutrophils # Man Lymphocytes # (Manual) POC ABG pH ABG pH POC ABG pCO2 POC ABG pO2 ABG pO2 ABG HCO3 ABG Base Excess ABG Hemoglobin Oxyhemoglobin Sodium Potassium Chloride Carbon Dioxide BUN Creatinine 0.6 L Glucose 189 H POC Glucose 209 H Lactic Acid Calcium 8.1 L AST Alkaline Phosphatase Albumin Urine WBC (Auto) 02/02/17 02/02/17 02/03/17 17:47 23:32 05:53 WBC RBC Hgb Hct MCV MCH RDW Plt Count Lymph % (Auto) [place] % (Auto) Eos % (Auto) Seg Neutrophils % Seg Neuts % (Manual) Lymphocytes % (Manual) Seg Neutrophils # Seg Neutrophils # Man Lymphocytes # (Manual) POC ABG pH ABG pH POC ABG pCO2 POC ABG pO2 ABG pO2 ABG HCO3 ABG Base Excess ABG Hemoglobin Oxyhemoglobin Sodium Potassium Chloride Carbon Dioxide BUN Creatinine Glucose POC Glucose 147 H 176 H 224 H Lactic Acid Calcium AST Alkaline Phosphatase Albumin Urine WBC (Auto) 02/03/17 02/03/17 02/03/17 11:19 16:59 23:38 WBC RBC Hgb Hct MCV MCH RDW Plt Count Lymph % (Auto) [place] % (Auto) Eos % (Auto) Seg Neutrophils % Seg Neuts % (Manual) Lymphocytes % (Manual) Seg Neutrophils # Seg Neutrophils # Man Lymphocytes # (Manual) POC ABG pH ABG pH POC ABG pCO2 POC ABG pO2 ABG pO2 ABG HCO3 ABG Base Excess ABG Hemoglobin Oxyhemoglobin Sodium Potassium Chloride Carbon Dioxide BUN Creatinine Glucose POC Glucose 228 H 189 H 191 H Lactic Acid Calcium AST Alkaline Phosphatase Albumin Urine WBC (Auto) 02/04/17 02/04/17 02/04/17 05:45 11:20 17:20 WBC RBC Hgb Hct MCV MCH RDW Plt Count Lymph % (Auto) [place] % (Auto) Eos % (Auto) Seg Neutrophils % Seg Neuts % (Manual) Lymphocytes % (Manual) Seg Neutrophils # Seg Neutrophils # Man Lymphocytes # (Manual) POC ABG pH ABG pH POC ABG pCO2 POC ABG pO2 ABG pO2 ABG HCO3 ABG Base Excess ABG Hemoglobin Oxyhemoglobin Sodium Potassium Chloride Carbon Dioxide BUN Creatinine Glucose POC Glucose 251 H 243 H 163 H Lactic Acid Calcium AST Alkaline Phosphatase Albumin Urine WBC (Auto) 02/05/17 02/05/17 02/05/17 00:17 05:38 12:38 WBC RBC Hgb Hct MCV MCH RDW Plt Count Lymph % (Auto) [place] % (Auto) Eos % (Auto) Seg Neutrophils % Seg Neuts % (Manual) Lymphocytes % (Manual) Seg Neutrophils # Seg Neutrophils # Man Lymphocytes # (Manual) POC ABG pH ABG pH POC ABG pCO2 POC ABG pO2 ABG pO2 ABG HCO3 ABG Base Excess ABG Hemoglobin Oxyhemoglobin Sodium Potassium Chloride Carbon Dioxide BUN Creatinine Glucose POC Glucose 200 H 248 H 241 H Lactic Acid Calcium AST Alkaline Phosphatase Albumin Urine WBC (Auto) 02/05/17 02/05/17 02/06/17 16:29 23:56 05:30 WBC RBC Hgb Hct MCV MCH RDW Plt Count Lymph % (Auto) [place] % (Auto) Eos % (Auto) Seg Neutrophils % Seg Neuts % (Manual) Lymphocytes % (Manual) Seg Neutrophils # Seg Neutrophils # Man Lymphocytes # (Manual) POC ABG pH ABG pH POC ABG pCO2 POC ABG pO2 ABG pO2 ABG HCO3 ABG Base Excess ABG Hemoglobin Oxyhemoglobin Sodium Potassium Chloride Carbon Dioxide BUN Creatinine Glucose POC Glucose 257 H 258 H 120 H Lactic Acid Calcium AST Alkaline Phosphatase Albumin Urine WBC (Auto) 02/06/17 02/06/17 02/06/17 11:50 17:11 23:50 WBC RBC Hgb Hct MCV MCH RDW Plt Count Lymph % (Auto) [place] % (Auto) Eos % (Auto) Seg Neutrophils % Seg Neuts % (Manual) Lymphocytes % (Manual) Seg Neutrophils # Seg Neutrophils # Man Lymphocytes # (Manual) POC ABG pH ABG pH POC ABG pCO2 POC ABG pO2 ABG pO2 ABG HCO3 ABG Base Excess ABG Hemoglobin Oxyhemoglobin Sodium Potassium Chloride Carbon Dioxide BUN Creatinine Glucose POC Glucose 254 H 149 H 240 H Lactic Acid Calcium AST Alkaline Phosphatase Albumin Urine WBC (Auto) 02/07/17 02/07/17 02/07/17 05:22 11:15 18:33 WBC RBC Hgb Hct MCV MCH RDW Plt Count Lymph % (Auto) [place] % (Auto) Eos % (Auto) Seg Neutrophils % Seg Neuts % (Manual) Lymphocytes % (Manual) Seg Neutrophils # Seg Neutrophils # Man Lymphocytes # (Manual) POC ABG pH ABG pH POC ABG pCO2 POC ABG pO2 ABG pO2 ABG HCO3 ABG Base Excess ABG Hemoglobin Oxyhemoglobin Sodium Potassium Chloride Carbon Dioxide BUN Creatinine Glucose POC Glucose 258 H 239 H 176 H Lactic Acid Calcium AST Alkaline Phosphatase Albumin Urine WBC (Auto) 02/07/17 02/08/17 02/08/17 23:59 06:15 11:55 WBC RBC Hgb Hct MCV MCH RDW Plt Count Lymph % (Auto) [place] % (Auto) Eos % (Auto) Seg Neutrophils % Seg Neuts % (Manual) Lymphocytes % (Manual) Seg Neutrophils # Seg Neutrophils # Man Lymphocytes # (Manual) POC ABG pH ABG pH POC ABG pCO2 POC ABG pO2 ABG pO2 ABG HCO3 ABG Base Excess ABG Hemoglobin Oxyhemoglobin Sodium Potassium Chloride Carbon Dioxide BUN Creatinine Glucose POC Glucose 186 H 195 H 129 H Lactic Acid Calcium AST Alkaline Phosphatase Albumin Urine WBC (Auto) 02/08/17 02/08/17 02/09/17 16:55 23:51 05:51 WBC RBC Hgb Hct MCV MCH RDW Plt Count Lymph % (Auto) [place] % (Auto) Eos % (Auto) Seg Neutrophils % Seg Neuts % (Manual) Lymphocytes % (Manual) Seg Neutrophils # Seg Neutrophils # Man Lymphocytes # (Manual) POC ABG pH ABG pH POC ABG pCO2 POC ABG pO2 ABG pO2 ABG HCO3 ABG Base Excess ABG Hemoglobin Oxyhemoglobin Sodium Potassium Chloride Carbon Dioxide BUN Creatinine Glucose POC Glucose 246 H 262 H 295 H Lactic Acid Calcium AST Alkaline Phosphatase Albumin Urine WBC (Auto) 02/09/17 02/09/17 02/09/17 07:24 07:24 12:08 WBC 14.7 H RBC 3.39 L Hgb 8.9 L Hct 26.4 L MCV 78 L MCH 26 L RDW 18.4 H Plt Count 670 H Lymph % (Auto) 11.8 L [place] % (Auto) Eos % (Auto) Seg Neutrophils % 81.2 H Seg Neuts % (Manual) Lymphocytes % (Manual) Seg Neutrophils # 11.9 H Seg Neutrophils # Man Lymphocytes # (Manual) POC ABG pH ABG pH POC ABG pCO2 POC ABG pO2 ABG pO2 ABG HCO3 ABG Base Excess ABG Hemoglobin Oxyhemoglobin Sodium Potassium Chloride 95.5 L Carbon Dioxide BUN 52 H Creatinine Glucose 277 H POC Glucose 236 H Lactic Acid Calcium AST Alkaline Phosphatase Albumin Urine WBC (Auto) 02/09/17 02/10/17 02/10/17 18:39 00:01 05:44 WBC RBC Hgb Hct MCV MCH RDW Plt Count Lymph % (Auto) [place] % (Auto) Eos % (Auto) Seg Neutrophils % Seg Neuts % (Manual) Lymphocytes % (Manual) Seg Neutrophils # Seg Neutrophils # Man Lymphocytes # (Manual) POC ABG pH ABG pH POC ABG pCO2 POC ABG pO2 ABG pO2 ABG HCO3 ABG Base Excess ABG Hemoglobin Oxyhemoglobin Sodium Potassium Chloride Carbon Dioxide BUN Creatinine Glucose POC Glucose 151 H 210 H 201 H Lactic Acid Calcium AST Alkaline Phosphatase Albumin Urine WBC (Auto) 02/10/17 02/10/17 02/10/17 11:21 17:29 23:56 WBC RBC Hgb Hct MCV MCH RDW Plt Count Lymph % (Auto) [place] % (Auto) Eos % (Auto) Seg Neutrophils % Seg Neuts % (Manual) Lymphocytes % (Manual) Seg Neutrophils # Seg Neutrophils # Man Lymphocytes # (Manual) POC ABG pH ABG pH POC ABG pCO2 POC ABG pO2 ABG pO2 ABG HCO3 ABG Base Excess ABG Hemoglobin Oxyhemoglobin Sodium Potassium Chloride Carbon Dioxide BUN Creatinine Glucose POC Glucose 233 H 167 H 191 H Lactic Acid Calcium AST Alkaline Phosphatase Albumin Urine WBC (Auto) 02/11/17 02/11/17 02/11/17 05:24 12:25 17:03 WBC RBC Hgb Hct MCV MCH RDW Plt Count Lymph % (Auto) [place] % (Auto) Eos % (Auto) Seg Neutrophils % Seg Neuts % (Manual) Lymphocytes % (Manual) Seg Neutrophils # Seg Neutrophils # Man Lymphocytes # (Manual) POC ABG pH ABG pH POC ABG pCO2 POC ABG pO2 ABG pO2 ABG HCO3 ABG Base Excess ABG Hemoglobin Oxyhemoglobin Sodium Potassium Chloride Carbon Dioxide BUN Creatinine Glucose POC Glucose 135 H 275 H 172 H Lactic Acid Calcium AST Alkaline Phosphatase Albumin Urine WBC (Auto) 02/11/17 02/12/17 02/12/17 23:59 05:39 11:33 WBC RBC Hgb Hct MCV MCH RDW Plt Count Lymph % (Auto) [place] % (Auto) Eos % (Auto) Seg Neutrophils % Seg Neuts % (Manual) Lymphocytes % (Manual) Seg Neutrophils # Seg Neutrophils # Man Lymphocytes # (Manual) POC ABG pH ABG pH POC ABG pCO2 POC ABG pO2 ABG pO2 ABG HCO3 ABG Base Excess ABG Hemoglobin Oxyhemoglobin Sodium Potassium Chloride Carbon Dioxide BUN Creatinine Glucose POC Glucose 215 H 261 H 217 H Lactic Acid Calcium AST Alkaline Phosphatase Albumin Urine WBC (Auto) 02/12/17 02/13/17 02/13/17 17:55 00:25 06:46 WBC RBC Hgb Hct MCV MCH RDW Plt Count Lymph % (Auto) [place] % (Auto) Eos % (Auto) Seg Neutrophils % Seg Neuts % (Manual) Lymphocytes % (Manual) Seg Neutrophils # Seg Neutrophils # Man Lymphocytes # (Manual) POC ABG pH ABG pH POC ABG pCO2 POC ABG pO2 ABG pO2 ABG HCO3 ABG Base Excess ABG Hemoglobin Oxyhemoglobin Sodium Potassium Chloride Carbon Dioxide BUN Creatinine Glucose POC Glucose 172 H 207 H 219 H Lactic Acid Calcium AST Alkaline Phosphatase Albumin Urine WBC (Auto) 02/13/17 02/13/17 02/13/17 11:26 17:12 23:44 WBC RBC Hgb Hct MCV MCH RDW Plt Count Lymph % (Auto) [place] % (Auto) Eos % (Auto) Seg Neutrophils % Seg Neuts % (Manual) Lymphocytes % (Manual) Seg Neutrophils # Seg Neutrophils # Man Lymphocytes # (Manual) POC ABG pH ABG pH POC ABG pCO2 POC ABG pO2 ABG pO2 ABG HCO3 ABG Base Excess ABG Hemoglobin Oxyhemoglobin Sodium Potassium Chloride Carbon Dioxide BUN Creatinine Glucose POC Glucose 231 H 190 H 256 H Lactic Acid Calcium AST Alkaline Phosphatase Albumin Urine WBC (Auto) 02/14/17 02/14/17 02/14/17 05:44 12:21 17:57 WBC RBC Hgb Hct MCV MCH RDW Plt Count Lymph % (Auto) [place] % (Auto) Eos % (Auto) Seg Neutrophils % Seg Neuts % (Manual) Lymphocytes % (Manual) Seg Neutrophils # Seg Neutrophils # Man Lymphocytes # (Manual) POC ABG pH ABG pH POC ABG pCO2 POC ABG pO2 ABG pO2 ABG HCO3 ABG Base Excess ABG Hemoglobin Oxyhemoglobin Sodium Potassium Chloride Carbon Dioxide BUN Creatinine Glucose POC Glucose 184 H 233 H 155 H Lactic Acid Calcium AST Alkaline Phosphatase Albumin Urine WBC (Auto) 02/14/17 02/15/17 02/15/17 23:18 05:33 11:45 WBC RBC Hgb Hct MCV MCH RDW Plt Count Lymph % (Auto) [place] % (Auto) Eos % (Auto) Seg Neutrophils % Seg Neuts % (Manual) Lymphocytes % (Manual) Seg Neutrophils # Seg Neutrophils # Man Lymphocytes # (Manual) POC ABG pH ABG pH POC ABG pCO2 POC ABG pO2 ABG pO2 ABG HCO3 ABG Base Excess ABG Hemoglobin Oxyhemoglobin Sodium Potassium Chloride Carbon Dioxide BUN Creatinine Glucose POC Glucose 165 H 239 H 130 H Lactic Acid Calcium AST Alkaline Phosphatase Albumin Urine WBC (Auto) 02/15/17 02/16/17 02/16/17 17:20 00:14 05:09 WBC RBC Hgb Hct MCV MCH RDW Plt Count Lymph % (Auto) [place] % (Auto) Eos % (Auto) Seg Neutrophils % Seg Neuts % (Manual) Lymphocytes % (Manual) Seg Neutrophils # Seg Neutrophils # Man Lymphocytes # (Manual) POC ABG pH ABG pH POC ABG pCO2 POC ABG pO2 ABG pO2 ABG HCO3 ABG Base Excess ABG Hemoglobin Oxyhemoglobin Sodium Potassium Chloride Carbon Dioxide BUN Creatinine Glucose POC Glucose 189 H 197 H 226 H Lactic Acid Calcium AST Alkaline Phosphatase Albumin Urine WBC (Auto) 02/16/17 02/16/17 02/16/17 12:31 16:35 23:49 WBC RBC Hgb Hct MCV MCH RDW Plt Count Lymph % (Auto) [place] % (Auto) Eos % (Auto) Seg Neutrophils % Seg Neuts % (Manual) Lymphocytes % (Manual) Seg Neutrophils # Seg Neutrophils # Man Lymphocytes # (Manual) POC ABG pH ABG pH POC ABG pCO2 POC ABG pO2 ABG pO2 ABG HCO3 ABG Base Excess ABG Hemoglobin Oxyhemoglobin Sodium Potassium Chloride Carbon Dioxide BUN Creatinine Glucose POC Glucose 178 H 174 H 62 L Lactic Acid Calcium AST Alkaline Phosphatase Albumin Urine WBC (Auto) 02/17/17 02/17/17 02/17/17 05:37 11:39 17:02 WBC RBC Hgb Hct MCV MCH RDW Plt Count Lymph % (Auto) [place] % (Auto) Eos % (Auto) Seg Neutrophils % Seg Neuts % (Manual) Lymphocytes % (Manual) Seg Neutrophils # Seg Neutrophils # Man Lymphocytes # (Manual) POC ABG pH ABG pH POC ABG pCO2 POC ABG pO2 ABG pO2 ABG HCO3 ABG Base Excess ABG Hemoglobin Oxyhemoglobin Sodium Potassium Chloride Carbon Dioxide BUN Creatinine Glucose POC Glucose 153 H 231 H 112 H Lactic Acid Calcium AST Alkaline Phosphatase Albumin Urine WBC (Auto) 02/17/17 22:24 WBC RBC Hgb Hct MCV MCH RDW Plt Count Lymph % (Auto) [place] % (Auto) Eos % (Auto) Seg Neutrophils % Seg Neuts % (Manual) Lymphocytes % (Manual) Seg Neutrophils # Seg Neutrophils # Man Lymphocytes # (Manual) POC ABG pH ABG pH POC ABG pCO2 POC ABG pO2 ABG pO2 ABG HCO3 ABG Base Excess ABG Hemoglobin Oxyhemoglobin Sodium Potassium Chloride Carbon Dioxide BUN Creatinine Glucose POC Glucose 116 H Lactic Acid Calcium AST Alkaline Phosphatase Albumin Urine WBC (Auto)
--- NOTE | 2017-02-18 17:15 | Progress Note ---
Assessment and Plan Assessment and plan: 51 yo male with DM, HTN, CKD, alcohol abuse and history of delirium tremens, found down and unresponsive; upon EMS arrival, serum glucose found to be 21 and insulin syringes around; unable to protect airway, so intubated; metabolic abnormalities corrected, but he remained unresponsive. 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 Ethics committee decided to make him DO NOT RESUSCITATE, but was not willing to sign for withdrawal of ventilator. Further care felt to be futile and would only prolong potential suffering without affecting ultimate outcome. Currently [facility]. Awaiting guardianship from the state. 1. Acute hypoxic respiratory failure On ventilator; PSV trial per pulmonary Trach not warranted given his extremely poor prognosis 2. Hypoglycemic brain injury 3. Vegetative state 4. Hypothyroidism Free T4 normal, so myxedema, less likely 5. Poor prognosis. Made DO NOT RESUSCITATE and [facility] by ethics committee. Awaiting state guardianship History Interval history: comatose, unresponsive; PSV trial no events Hospitalist Physical - Constitutional Vitals: Temp Pulse Resp BP Pulse Ox 97.6 F 66 24 116/79 99 02/18/17 08:00 02/18/17 15:46 02/18/17 14:00 02/18/17 15:46 02/18/17 15:46 General appearance: Present: no acute distress, other (comatose, unresponsive) - Respiratory Respiratory effort: other (intubated) Respiratory: bilateral: CTA, negative: rhonchi, wheezing - Cardiovascular Rhythm: regular Heart Sounds: Present: S1 & S2. Absent: systolic murmur - Extremities Extremities: no ischemia - Abdominal General gastrointestinal: soft, non-distended - Psychiatric Psychiatric: other (comatous) Results - Labs CBC & Chem 7: 02/09/17 07:24 02/09/17 07:24 Labs: Laboratory Last Values WBC 14.7 K/mm3 (4.5-11.0) H 02/09/17 07:24 RBC 3.39 M/mm3 (3.65-5.03) L 02/09/17 07:24 Hgb 8.9 gm/dl (11.8-15.2) L 02/09/17 07:24 Hct 26.4 % (35.5-45.6) L 02/09/17 07:24 MCV 78 fl (84-94) L 02/09/17 07:24 MCH 26 pg (28-32) L 02/09/17 07:24 MCHC 34 % (32-34) 02/09/17 07:24 RDW 18.4 % (13.2-15.2) H 02/09/17 07:24 Plt Count 670 K/mm3 (140-440) H 02/09/17 07:24 Lymph % (Auto) 11.8 % (13.4-35.0) L 02/09/17 07:24 [place] % (Auto) 4.7 % (0.0-7.3) 02/09/17 07:24 Eos % (Auto) 1.9 % (0.0-4.3) 02/09/17 07:24 Baso % (Auto) 0.4 % (0.0-1.8) 02/09/17 07:24 Lymph # 1.7 K/mm3 (1.2-5.4) 02/09/17 07:24 [place] # 0.7 K/mm3 (0.0-0.8) 02/09/17 07:24 Eos # 0.3 K/mm3 (0.0-0.4) 02/09/17 07:24 Baso # 0.1 K/mm3 (0.0-0.1) 02/09/17 07:24 Add Manual Diff Complete 01/10/17 04:30 Total Counted 100 01/10/17 04:30 Seg Neutrophils % 81.2 % (40.0-70.0) H 02/09/17 07:24 Seg Neuts % (Manual) 88.0 % (40.0-70.0) H 01/10/17 04:30 Band Neutrophils % 7.0 % 01/10/17 04:30 Lymphocytes % (Manual) 4.0 % (13.4-35.0) L 01/10/17 04:30 Reactive Lymphs % (Man) 0 % 01/10/17 04:30 Monocytes % (Manual) 1.0 % (0.0-7.3) 01/10/17 04:30 Eosinophils % (Manual) 0 % (0.0-4.3) 01/10/17 04:30 Basophils % (Manual) 0 % (0.0-1.8) 01/10/17 04:30 Metamyelocytes % 0 % 01/10/17 04:30 Myelocytes % 0 % 01/10/17 04:30 Promyelocytes % 0 % 01/10/17 04:30 Blast Cells % 0 % 01/10/17 04:30 Nucleated RBC % Not Reportable 01/10/17 04:30 Seg Neutrophils # 11.9 K/mm3 (1.8-7.7) H 02/09/17 07:24 Seg Neutrophils # Man 21.2 K/mm3 (1.8-7.7) H 01/10/17 04:30 Band Neutrophils # 1.7 K/mm3 01/10/17 04:30 Lymphocytes # (Manual) 1.0 K/mm3 (1.2-5.4) L 01/10/17 04:30 Abs React Lymphs (Man) 0.0 K/mm3 01/10/17 04:30 Monocytes # (Manual) 0.2 K/mm3 (0.0-0.8) 01/10/17 04:30 Eosinophils # (Manual) 0.0 K/mm3 (0.0-0.4) 01/10/17 04:30 Basophils # (Manual) 0.0 K/mm3 (0.0-0.1) 01/10/17 04:30 Metamyelocytes # 0.0 K/mm3 01/10/17 04:30 Myelocytes # 0.0 K/mm3 01/10/17 04:30 Promyelocytes # 0.0 K/mm3 01/10/17 04:30 Blast Cells # 0.0 K/mm3 01/10/17 04:30 WBC Morphology Not Reportable 01/10/17 04:30 Hypersegmented Neuts Not Reportable 01/10/17 04:30 Hyposegmented Neuts Not Reportable 01/10/17 04:30 Hypogranular Neuts Not Reportable 01/10/17 04:30 Smudge Cells Not Reportable 01/10/17 04:30 Toxic Granulation Not Reportable 01/10/17 04:30 Toxic Vacuolation Not Reportable 01/10/17 04:30 Dohle Bodies Not Reportable 01/10/17 04:30 Pelger-Huet Anomaly Not Reportable 01/10/17 04:30 [place] Rods Not Reportable 01/10/17 04:30 Platelet Estimate Consistent w auto 01/10/17 04:30 Clumped Platelets Not Reportable 01/10/17 04:30 Plt Clumps, EDTA Not Reportable 01/10/17 04:30 Large Platelets Not Reportable 01/10/17 04:30 Giant Platelets Not Reportable 01/10/17 04:30 Platelet Satelliting Not Reportable 01/10/17 04:30 Plt Morphology Comment Not Reportable 01/10/17 04:30 RBC Morphology Not Reportable 01/10/17 04:30 Dimorphic RBCs Not Reportable 01/10/17 04:30 Polychromasia Not Reportable 01/10/17 04:30 Hypochromasia 1+ 01/10/17 04:30 Poikilocytosis Not Reportable 01/10/17 04:30 Anisocytosis Not Reportable 01/10/17 04:30 Microcytosis Not Reportable 01/10/17 04:30 Macrocytosis Not Reportable 01/10/17 04:30 Spherocytes Not Reportable 01/10/17 04:30 Pappenheimer Bodies Not Reportable 01/10/17 04:30 Sickle Cells Not Reportable 01/10/17 04:30 Target Cells Not Reportable 01/10/17 04:30 Tear Drop Cells Not Reportable 01/10/17 04:30 Ovalocytes Not Reportable 01/10/17 04:30 Helmet Cells Not Reportable 01/10/17 04:30 [place] Bodies Not Reportable 01/10/17 04:30 [place] Rings Not Reportable 01/10/17 04:30 [place] Cells Not Reportable 01/10/17 04:30 Bite Cells Not Reportable 01/10/17 04:30 Crenated Cell Not Reportable 01/10/17 04:30 Elliptocytes Not Reportable 01/10/17 04:30 Acanthocytes (Spur) Not Reportable 01/10/17 04:30 Rouleaux Not Reportable 01/10/17 04:30 Hemoglobin C Crystals Not Reportable 01/10/17 04:30 Schistocytes Not Reportable 01/10/17 04:30 Malaria parasites Not Reportable 01/10/17 04:30 [place] Bodies Not Reportable 01/10/17 04:30 Hem Pathologist Commnt No 01/10/17 04:30 PT 14.1 Sec. (12.2-14.9) 01/17/17 04:10 INR 1.04 (0.87-1.13) 01/17/17 04:10 APTT 36.6 Sec. (24.2-36.6) 01/17/17 04:10 POC ABG pH 7.442 (7.35-7.45) 01/31/17 18:55 ABG pH 7.420 pH Units (7.350-7.450) 01/17/17 04:35 POC ABG pCO2 32.8 (35-45) L 01/31/17 18:55 ABG pCO2 34.5 mm Hg 01/17/17 04:35 POC ABG pO2 82 (80-105) 01/31/17 18:55 ABG pO2 160.3 mm Hg (80.0-90.0) H 01/17/17 04:35 POC ABG HCO3 22.4 01/31/17 18:55 ABG HCO3 21.9 mmol/L (20.0-26.0) 01/17/17 04:35 POC ABG Total CO2 23 01/31/17 18:55 POC ABG O2 Sat 97 01/31/17 18:55 ABG O2 Saturation 99.0 % (95.0-99.0) 01/17/17 04:35 ABG O2 Content 11.1 (0.0-44) 01/17/17 04:35 POC ABG Base Excess -2 01/31/17 18:55 ABG Base Excess -2.3 mmol/L (-2.0-3.0) L 01/17/17 04:35 ABG Hemoglobin 7.9 gm/dl (14.0-18.0) L 01/17/17 04:35 ABG Carboxyhemoglobin 1.5 % (0.0-5.0) 01/17/17 04:35 ABG Methemoglobin 0.5 % (0.0-1.5) 01/17/17 04:35 VBG pH 7.284 (7.320-7.420) L 01/09/17 10:16 Oxyhemoglobin 97.1 % (95.0-99.0) 01/17/17 04:35 FiO2 25 % 01/31/17 18:55 Sodium 137 mmol/L (137-145) 02/09/17 07:24 Potassium 4.9 mmol/L (3.6-5.0) 02/09/17 07:24 Chloride 95.5 mmol/L (98-107) L 02/09/17 07:24 Carbon Dioxide 29 mmol/L (22-30) 02/09/17 07:24 Anion Gap 17 mmol/L 02/09/17 07:24 BUN 52 mg/dL (9-20) H 02/09/17 07:24 Creatinine 0.8 mg/dL (0.8-1.5) 02/09/17 07:24 Estimated GFR > 60 ml/min 02/09/17 07:24 BUN/Creatinine Ratio 65 % 02/09/17 07:24 Glucose 277 mg/dL (75-100) H 02/09/17 07:24 POC Glucose 215 (70-105) H 02/18/17 15:34 Lactic Acid 0.80 mmol/L (0.7-2.0) 01/30/17 11:49 Calcium 9.4 mg/dL (8.4-10.2) 02/09/17 07:24 Phosphorus 3.60 mg/dL (2.5-4.5) 01/22/17 04:00 Magnesium 2.10 mg/dL (1.7-2.3) 01/22/17 04:00 Total Bilirubin 0.30 mg/dL (0.1-1.2) 01/22/17 04:00 AST 44 units/L (5-40) H 01/22/17 04:00 ALT 23 units/L (7-56) 01/22/17 04:00 Alkaline Phosphatase 379 units/L (35-129) H 01/22/17 04:00 Ammonia 35.0 umol/L (25-60) 01/09/17 10:16 Total Creatine Kinase 135 units/L (55-170) 01/09/17 10:16 CK-MB (CK-2) 7.1 ng/mL (0.0-4.0) H 01/09/17 10:16 CK-MB (CK-2) Rel Index 5.2 (0-4) H 01/09/17 10:16 Troponin T < 0.010 ng/mL (0.00-0.029) 01/09/17 10:16 NT-Pro-B Natriuret Pep 602.9 pg/mL (0-900) 01/09/17 10: Total Protein 7.9 g/dL (6.3-8.2) 01/22/17 04:00 Albumin 2.7 g/dL (3.9-5) L 01/22/17 04:00 Albumin/Globulin Ratio 0.5 % 01/22/17 04:00 TSH 52.800 mlU/mL (0.270-4.200) H 01/09/17 10:16 Free T4 0.78 ng/dL (0.76-1.46) 01/09/17 10:16 Total Cortisol 54.8 mcg/dL () 01/09/17 16:19 Urine Color Yellow (Yellow) 01/28/17 17:52 Urine Turbidity Clear (Clear) 01/28/17 17:52 Urine pH 6.0 (5.0-7.0) 01/28/17 17:52 Ur Specific [place] 1.016 (1.003-1.030) 01/28/17 17:52 Urine Protein 100 mg/dl mg/dL (Negative) 01/28/17 17:52 Urine Glucose (UA) >=500 mg/dL (Negative) 01/28/17 17:52 Urine Ketones Neg mg/dL (Negative) 01/28/17 17:52 Urine Blood Sm (Negative) 01/28/17 17:52 Urine Nitrite Neg (Negative) 01/28/17 17:52 Urine Bilirubin Neg (Negative) 01/28/17 17:52 Urine Urobilinogen < 2.0 mg/dL (<2.0) 01/28/17 17:52 Ur Leukocyte Esterase Lg (Negative) 01/28/17 17:52 Urine WBC (Auto) > 182.0 /HPF (0.0-6.0) H 01/28/17 17:52 Urine RBC (Auto) 113.0 /HPF (0.0-6.0) 01/28/17 17:52 Urine Bacteria (Auto) 2+ /HPF (Negative) 01/28/17 17:52 Urine WBC Clumps 3+ /HPF 01/28/17 17:52 Urine Mucus Few /HPF 01/14/17 14:07 Urine Yeast (Budding) 3+ /HPF 01/14/17 14:07 Salicylates < 0.3 mg/dL (2.8-20.0) L 01/09/17 10:16 Urine Opiates Screen Presumptive negative 01/09/17 10:23 Urine Methadone Screen Presumptive negative 01/09/17 10:23 Acetaminophen < 15.0 ug/mL (10.0-30.0) 01/09/17 10:16 Ur Barbiturates Screen Presumptive negative 01/09/17 10:23 Ur Phencyclidine Scrn Presumptive negative 01/09/17 10:23 Ur Amphetamines Screen Presumptive negative 01/09/17 10:23 U Benzodiazepines Scrn Presumptive negative 01/09/17 10:23 Urine Cocaine Screen Presumptive negative 01/09/17 10:23 U Marijuana (THC) Screen Presumptive negative 01/09/17 10:23 Drugs of Abuse Note Disclamer 01/09/17 10:23 Plasma/Serum Alcohol < 0.01 gm% (0-0.07) 01/09/17 10:16
[2017-02-19] MEDS: NOVOLOG SUB-Q SCH ×4 (03:41→22:22)
--- NOTE | 2017-02-19 09:01 | Progress Note ---
Assessment and Plan Assessment and plan: 51 yo male with DM, HTN, CKD, alcohol abuse and history of delirium tremens, found down and unresponsive; upon EMS arrival, serum glucose found to be 21 and insulin syringes around; unable to protect airway, so intubated; metabolic abnormalities corrected, but he remained unresponsive. 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 Ethics committee decided to make him DO NOT RESUSCITATE, but was not willing to sign for withdrawal of ventilator. Further care felt to be futile and would only prolong potential suffering without affecting ultimate outcome. Currently [facility]. Awaiting guardianship from the state. --Acute hypoxic respiratory failure, unable to wean Intubated on ventilatory support very poor prognosis not a candidate for Trach and PEG, --Metabolic encephalopathy /Hypoglycemic brain injury --Persistent Vegetative state --Hypothyroidism; continue Synthroid -- Dony Poor prognosis. --DO NOT RESUSCITATE and [facility]fort [facility] by ethics committee. -- Awaiting state guardianship Continue current management History Interval history: Patient seen and examined,Medical records reviewed Patient is Chronically ill-looking ,cachectic, emaciated Orally intubated on ventilatory support Febrile, MAXIMUM TEMPERATURE 101.9 Vital signs reviewed Hospitalist Physical - Constitutional Vitals: Temp Pulse Resp BP Pulse Ox 98.3 F 63 24 113/72 99 02/19/17 08:00 02/19/17 07:12 02/18/17 14:00 02/18/17 20:00 02/19/17 07:12 General appearance: Present: no acute distress, cachectic, disheveled, other ( unresponsive) - EENT Eyes: Present: PERRL, EOM intact - Neck Neck: Present: supple - Respiratory Respiratory effort: normal Respiratory: bilateral: diminished, rhonchi, negative: rales, wheezing - Cardiovascular Rhythm: regular Heart Sounds: Present: S1 & S2 - Extremities Extremities: no ischemia, No edema, abnormal - Abdominal General gastrointestinal: soft, non-tender, non-distended, normal bowel sounds - Integumentary Integumentary: Present: clear, warm - Psychiatric Psychiatric: other (unresponsive) - Neurologic Neurologic: other (unresponsive) Results - Labs CBC & Chem 7: 02/09/17 07:24 02/09/17 07:24 Labs: Laboratory Last Values WBC 14.7 K/mm3 (4.5-11.0) H 02/09/17 07:24 RBC 3.39 M/mm3 (3.65-5.03) L 02/09/17 07:24 Hgb 8.9 gm/dl (11.8-15.2) L 02/09/17 07:24 Hct 26.4 % (35.5-45.6) L 02/09/17 07:24 MCV 78 fl (84-94) L 02/09/17 07:24 MCH 26 pg (28-32) L 02/09/17 07:24 MCHC 34 % (32-34) 02/09/17 07:24 RDW 18.4 % (13.2-15.2) H 02/09/17 07:24 Plt Count 670 K/mm3 (140-440) H 02/09/17 07:24 Lymph % (Auto) 11.8 % (13.4-35.0) L 02/09/17 07:24 [place] % (Auto) 4.7 % (0.0-7.3) 02/09/17 07:24 Eos % (Auto) 1.9 % (0.0-4.3) 02/09/17 07:24 Baso % (Auto) 0.4 % (0.0-1.8) 02/09/17 07:24 Lymph # 1.7 K/mm3 (1.2-5.4) 02/09/17 07:24 [place] # 0.7 K/mm3 (0.0-0.8) 02/09/17 07:24 Eos # 0.3 K/mm3 (0.0-0.4) 02/09/17 07:24 Baso # 0.1 K/mm3 (0.0-0.1) 02/09/17 07:24 Add Manual Diff Complete 01/10/17 04:30 Total Counted 100 01/10/17 04:30 Seg Neutrophils % 81.2 % (40.0-70.0) H 02/09/17 07:24 Seg Neuts % (Manual) 88.0 % (40.0-70.0) H 01/10/17 04:30 Band Neutrophils % 7.0 % 01/10/17 04:30 Lymphocytes % (Manual) 4.0 % (13.4-35.0) L 01/10/17 04:30 Reactive Lymphs % (Man) 0 % 01/10/17 04:30 Monocytes % (Manual) 1.0 % (0.0-7.3) 01/10/17 04:30 Eosinophils % (Manual) 0 % (0.0-4.3) 01/10/17 04:30 Basophils % (Manual) 0 % (0.0-1.8) 01/10/17 04:30 Metamyelocytes % 0 % 01/10/17 04:30 Myelocytes % 0 % 01/10/17 04:30 Promyelocytes % 0 % 01/10/17 04:30 Blast Cells % 0 % 01/10/17 04:30 Nucleated RBC % Not Reportable 01/10/17 04:30 Seg Neutrophils # 11.9 K/mm3 (1.8-7.7) H 02/09/17 07:24 Seg Neutrophils # Man 21.2 K/mm3 (1.8-7.7) H 01/10/17 04:30 Band Neutrophils # 1.7 K/mm3 01/10/17 04:30 Lymphocytes # (Manual) 1.0 K/mm3 (1.2-5.4) L 01/10/17 04:30 Abs React Lymphs (Man) 0.0 K/mm3 01/10/17 04:30 Monocytes # (Manual) 0.2 K/mm3 (0.0-0.8) 01/10/17 04:30 Eosinophils # (Manual) 0.0 K/mm3 (0.0-0.4) 01/10/17 04:30 Basophils # (Manual) 0.0 K/mm3 (0.0-0.1) 01/10/17 04:30 Metamyelocytes # 0.0 K/mm3 01/10/17 04:30 Myelocytes # 0.0 K/mm3 01/10/17 04:30 Promyelocytes # 0.0 K/mm3 01/10/17 04:30 Blast Cells # 0.0 K/mm3 01/10/17 04:30 WBC Morphology Not Reportable 01/10/17 04:30 Hypersegmented Neuts Not Reportable 01/10/17 04:30 Hyposegmented Neuts Not Reportable 01/10/17 04:30 Hypogranular Neuts Not Reportable 01/10/17 04:30 Smudge Cells Not Reportable 01/10/17 04:30 Toxic Granulation Not Reportable 01/10/17 04:30 Toxic Vacuolation Not Reportable 01/10/17 04:30 Dohle Bodies Not Reportable 01/10/17 04:30 Pelger-Huet Anomaly Not Reportable 01/10/17 04:30 [place] Rods Not Reportable 01/10/17 04:30 Platelet Estimate Consistent w auto 01/10/17 04:30 Clumped Platelets Not Reportable 01/10/17 04:30 Plt Clumps, EDTA Not Reportable 01/10/17 04:30 Large Platelets Not Reportable 01/10/17 04:30 Giant Platelets Not Reportable 01/10/17 04:30 Platelet Satelliting Not Reportable 01/10/17 04:30 Plt Morphology Comment Not Reportable 01/10/17 04:30 RBC Morphology Not Reportable 01/10/17 04:30 Dimorphic RBCs Not Reportable 01/10/17 04:30 Polychromasia Not Reportable 01/10/17 04:30 Hypochromasia 1+ 01/10/17 04:30 Poikilocytosis Not Reportable 01/10/17 04:30 Anisocytosis Not Reportable 01/10/17 04:30 Microcytosis Not Reportable 01/10/17 04:30 Macrocytosis Not Reportable 01/10/17 04:30 Spherocytes Not Reportable 01/10/17 04:30 Pappenheimer Bodies Not Reportable 01/10/17 04:30 Sickle Cells Not Reportable 01/10/17 04:30 Target Cells Not Reportable 01/10/17 04:30 Tear Drop Cells Not Reportable 01/10/17 04:30 Ovalocytes Not Reportable 01/10/17 04:30 Helmet Cells Not Reportable 01/10/17 04:30 [place] Bodies Not Reportable 01/10/17 04:30 [place] Rings Not Reportable 01/10/17 04:30 [place] Cells Not Reportable 01/10/17 04:30 Bite Cells Not Reportable 01/10/17 04:30 Crenated Cell Not Reportable 01/10/17 04:30 Elliptocytes Not Reportable 01/10/17 04:30 Acanthocytes (Spur) Not Reportable 01/10/17 04:30 Rouleaux Not Reportable 01/10/17 04:30 Hemoglobin C Crystals Not Reportable 01/10/17 04:30 Schistocytes Not Reportable 01/10/17 04:30 Malaria parasites Not Reportable 01/10/17 04:30 [place] Bodies Not Reportable 01/10/17 04:30 Hem Pathologist Commnt No 01/10/17 04:30 PT 14.1 Sec. (12.2-14.9) 01/17/17 04:10 INR 1.04 (0.87-1.13) 01/17/17 04:10 APTT 36.6 Sec. (24.2-36.6) 01/17/17 04:10 POC ABG pH 7.442 (7.35-7.45) 01/31/17 18:55 ABG pH 7.420 pH Units (7.350-7.450) 01/17/17 04:35 POC ABG pCO2 32.8 (35-45) L 01/31/17 18:55 ABG pCO2 34.5 mm Hg 01/17/17 04:35 POC ABG pO2 82 (80-105) 01/31/17 18:55 ABG pO2 160.3 mm Hg (80.0-90.0) H 01/17/17 04:35 POC ABG HCO3 22.4 01/31/17 18:55 ABG HCO3 21.9 mmol/L (20.0-26.0) 01/17/17 04:35 POC ABG Total CO2 23 01/31/17 18:55 POC ABG O2 Sat 97 01/31/17 18:55 ABG O2 Saturation 99.0 % (95.0-99.0) 01/17/17 04:35 ABG O2 Content 11.1 (0.0-44) 01/17/17 04:35 POC ABG Base Excess -2 01/31/17 18:55 ABG Base Excess -2.3 mmol/L (-2.0-3.0) L 01/17/17 04:35 ABG Hemoglobin 7.9 gm/dl (14.0-18.0) L 01/17/17 04:35 ABG Carboxyhemoglobin 1.5 % (0.0-5.0) 01/17/17 04:35 ABG Methemoglobin 0.5 % (0.0-1.5) 01/17/17 04:35 VBG pH 7.284 (7.320-7.420) L 01/09/17 10:16 Oxyhemoglobin 97.1 % (95.0-99.0) 01/17/17 04:35 FiO2 25 % 01/31/17 18:55 Sodium 137 mmol/L (137-145) 02/09/17 07:24 Potassium 4.9 mmol/L (3.6-5.0) 02/09/17 07:24 Chloride 95.5 mmol/L (98-107) L 02/09/17 07:24 Carbon Dioxide 29 mmol/L (22-30) 02/09/17 07:24 Anion Gap 17 mmol/L 02/09/17 07:24 BUN 52 mg/dL (9-20) H 02/09/17 07:24 Creatinine 0.8 mg/dL (0.8-1.5) 02/09/17 07:24 Estimated GFR > 60 ml/min 02/09/17 07:24 BUN/Creatinine Ratio 65 % 02/09/17 07:24 Glucose 277 mg/dL (75-100) H 02/09/17 07:24 POC Glucose 283 (70-105) H 02/19/17 07:57 Lactic Acid 0.80 mmol/L (0.7-2.0) 01/30/17 11:49 Calcium 9.4 mg/dL (8.4-10.2) 02/09/17 07:24 Phosphorus 3.60 mg/dL (2.5-4.5) 01/22/17 04:00 Magnesium 2.10 mg/dL (1.7-2.3) 01/22/17 04:00 Total Bilirubin 0.30 mg/dL (0.1-1.2) 01/22/17 04:00 AST 44 units/L (5-40) H 01/22/17 04:00 ALT 23 units/L (7-56) 01/22/17 04:00 Alkaline Phosphatase 379 units/L (35-129) H 01/22/17 04:00 Ammonia 35.0 umol/L (25-60) 01/09/17 10:16 Total Creatine Kinase 135 units/L (55-170) 01/09/17 10:16 CK-MB (CK-2) 7.1 ng/mL (0.0-4.0) H 01/09/17 10:16 CK-MB (CK-2) Rel Index 5.2 (0-4) H 01/09/17 10:16 Troponin T < 0.010 ng/mL (0.00-0.029) 01/09/17 10:16 NT-Pro-B Natriuret Pep 602.9 pg/mL (0-900) 01/09/17 10:16 Total Protein 7.9 g/dL (6.3-8.2) 01/22/17 04:00 Albumin 2.7 g/dL (3.9-5) L 01/22/17 04:00 Albumin/Globulin Ratio 0.5 % 01/22/17 04:00 TSH 52.800 mlU/mL (0.270-4.200) H 01/09/17 10:16 Free T4 0.78 ng/dL (0.76-1.46) 01/09/17 10:16 Total Cortisol 54.8 mcg/dL () 01/09/17 16:19 Urine Color Yellow (Yellow) 01/28/17 17:52 Urine Turbidity Clear (Clear) 01/28/17 17:52 Urine pH 6.0 (5.0-7.0) 01/28/17 17:52 Ur Specific [place] 1.016 (1.003-1.030) 01/28/17 17:52 Urine Protein 100 mg/dl mg/dL (Negative) 01/28/17 17:52 Urine Glucose (UA) >=500 mg/dL (Negative) 01/28/17 17:52 Urine Ketones Neg mg/dL (Negative) 01/28/17 17:52 Urine Blood Sm (Negative) 01/28/17 17:52 Urine Nitrite Neg (Negative) 01/28/17 17:52 Urine Bilirubin Neg (Negative) 01/28/17 17:52 Urine Urobilinogen < 2.0 mg/dL (<2.0) 01/28/17 17:52 Ur Leukocyte Esterase Lg (Negative) 01/28/17 17:52 Urine WBC (Auto) > 182.0 /HPF (0.0-6.0) H 01/28/17 17:52 Urine RBC (Auto) 113.0 /HPF (0.0-6.0) 01/28/17 17:52 Urine Bacteria (Auto) 2+ /HPF (Negative) 01/28/17 17:52 Urine WBC Clumps 3+ /HPF 01/28/17 17:52 Urine Mucus Few /HPF 01/14/17 14:07 Urine Yeast (Budding) 3+ /HPF 01/14/17 14:07 Salicylates < 0.3 mg/dL (2.8-20.0) L 01/09/17 10:16 Urine Opiates Screen Presumptive negative 01/09/17 10:23 Urine Methadone Screen Presumptive negative 01/09/17 10:23 Acetaminophen < 15.0 ug/mL (10.0-30.0) 01/09/17 10:16 Ur Barbiturates Screen Presumptive negative 01/09/17 10:23 Ur Phencyclidine Scrn Presumptive negative 01/09/17 10:23 Ur Amphetamines Screen Presumptive negative 01/09/17 10:23 U Benzodiazepines Scrn Presumptive negative 01/09/17 10:23 Urine Cocaine Screen Presumptive negative 01/09/17 10:23 U Marijuana (THC) Screen Presumptive negative 01/09/17 10:23 Drugs of Abuse Note Disclamer 01/09/17 10:23 Plasma/Serum Alcohol < 0.01 gm% (0-0.07) 01/09/17 10:16
[2017-02-19] MEDS: SYNTHROID PO SCH (09:18)
[2017-02-19] MEDS: PEPCID PO SCH ×2 (09:58→21:34)
[2017-02-19] MEDS: NORMODYNE PO SCH ×2 (09:58→21:33)
[2017-02-19] MEDS: HEPARIN SUB-Q SCH ×2 (09:58→21:34)
[2017-02-19] MEDS: LEVEMIR (NF) SUB-Q SCH (09:59)
[2017-02-20] MEDS: TYLENOL FEEDTUBE PRN (01:30)
[2017-02-20] MEDS: NOVOLOG SUB-Q SCH ×3 (05:51→23:22)
[2017-02-20] MEDS: SYNTHROID PO SCH (05:51)
--- NOTE | 2017-02-20 09:31 | Progress Note ---
Assessment and Plan Assessment and plan: 51 yo male with DM, HTN, CKD, alcohol abuse and history of delirium tremens, found down and unresponsive; upon EMS arrival, serum glucose found to be 21 and insulin syringes around; unable to protect airway, so intubated; metabolic abnormalities corrected, but he remained unresponsive. [employer] unable to locate any family. Ethics committee decided to make him DO NOT RESUSCITATE, but was not willing to sign for withdrawal of ventilator. Further care felt to be futile and would only prolong potential suffering without affecting ultimate outcome. Currently Comfort Care. Awaiting guardianship from the state. --Acute hypoxic respiratory failure, unable to wean Intubated on ventilatory support very poor prognosis not a candidate for Trach and PEG, --Metabolic encephalopathy /Hypoglycemic brain injury --Persistent Vegetative state --Hypothyroidism; continue Synthroid -- Dony Poor prognosis. --DO NOT RESUSCITATE and Comfort Care by ethics committee. -- Awaiting state guardianship Continue comfort care History Interval history: Patient seen and examined in ICU Medical records reviewed Clinically no change Hospitalist Physical - Constitutional Vitals: Temp Pulse Resp BP Pulse Ox 100.6 F H 66 17 114/75 100 02/20/17 03:48 02/20/17 07:37 02/19/17 22:01 02/20/17 07:37 02/20/17 07:37 General appearance: Present: no acute distress, cachectic, disheveled, other ( unresponsive) - EENT Eyes: Present: PERRL - Neck Neck: Present: supple. Absent: enlarged thyroid - Respiratory Respiratory effort: normal Respiratory: bilateral: diminished, rhonchi - Cardiovascular Rhythm: regular Heart Sounds: Present: S1 & S2 - Extremities Extremities: no ischemia, No edema - Abdominal General gastrointestinal: soft, non-tender, non-distended, normal bowel sounds - Integumentary Integumentary: Present: clear, warm - Psychiatric Psychiatric: other (noncommunicative) - Neurologic Neurologic: other (noncommunicative) Results - Labs CBC & Chem 7: 02/09/17 07:24 02/09/17 07:24 Labs: Laboratory Last Values WBC 14.7 K/mm3 (4.5-11.0) H 02/09/17 07:24 RBC 3.39 M/mm3 (3.65-5.03) L 02/09/17 07:24 Hgb 8.9 gm/dl (11.8-15.2) L 02/09/17 07:24 Hct 26.4 % (35.5-45.6) L 02/09/17 07:24 MCV 78 fl (84-94) L 02/09/17 07:24 MCH 26 pg (28-32) L 02/09/17 07:24 MCHC 34 % (32-34) 02/09/17 07:24 RDW 18.4 % (13.2-15.2) H 02/09/17 07:24 Plt Count 670 K/mm3 (140-440) H 02/09/17 07:24 Lymph % (Auto) 11.8 % (13.4-35.0) L 02/09/17 07:24 [place] % (Auto) 4.7 % (0.0-7.3) 02/09/17 07:24 Eos % (Auto) 1.9 % (0.0-4.3) 02/09/17 07:24 Baso % (Auto) 0.4 % (0.0-1.8) 02/09/17 07:24 Lymph # 1.7 K/mm3 (1.2-5.4) 02/09/17 07:24 [place]ink # 0.7 K/mm3 (0.0-0.8) 02/09/17 07:24 Eos # 0.3 K/mm3 (0.0-0.4) 02/09/17 07:24 Baso # 0.1 K/mm3 (0.0-0.1) 02/09/17 07:24 Add Manual Diff Complete 01/10/17 04:30 Total Counted 100 01/10/17 04:30 Seg Neutrophils % 81.2 % (40.0-70.0) H 02/09/17 07:24 Seg Neuts % (Manual) 88.0 % (40.0-70.0) H 01/10/17 04:30 Band Neutrophils % 7.0 % 01/10/17 04:30 Lymphocytes % (Manual) 4.0 % (13.4-35.0) L 01/10/17 04:30 Reactive Lymphs % (Man) 0 % 01/10/17 04:30 Monocytes % (Manual) 1.0 % (0.0-7.3) 01/10/17 04:30 Eosinophils % (Manual) 0 % (0.0-4.3) 01/10/17 04:30 Basophils % (Manual) 0 % (0.0-1.8) 01/10/17 04:30 Metamyelocytes % 0 % 01/10/17 04:30 Myelocytes % 0 % 01/10/17 04:30 Promyelocytes % 0 % 01/10/17 04:30 Blast Cells % 0 % 01/10/17 04:30 Nucleated RBC % Not Reportable 01/10/17 04:30 Seg Neutrophils # 11.9 K/mm3 (1.8-7.7) H 02/09/17 07:24 Seg Neutrophils # Man 21.2 K/mm3 (1.8-7.7) H 01/10/17 04:30 Band Neutrophils # 1.7 K/mm3 01/10/17 04:30 Lymphocytes # (Manual) 1.0 K/mm3 (1.2-5.4) L 01/10/17 04:30 Abs React Lymphs (Man) 0.0 K/mm3 01/10/17 04:30 Monocytes # (Manual) 0.2 K/mm3 (0.0-0.8) 01/10/17 04:30 Eosinophils # (Manual) 0.0 K/mm3 (0.0-0.4) 01/10/17 04:30 Basophils # (Manual) 0.0 K/mm3 (0.0-0.1) 01/10/17 04:30 Metamyelocytes # 0.0 K/mm3 01/10/17 04:30 Myelocytes # 0.0 K/mm3 01/10/17 04:30 Promyelocytes # 0.0 K/mm3 01/10/17 04:30 Blast Cells # 0.0 K/mm3 01/10/17 04:30 WBC Morphology Not Reportable 01/10/17 04:30 Hypersegmented Neuts Not Reportable 01/10/17 04:30 Hyposegmented Neuts Not Reportable 01/10/17 04:30 Hypogranular Neuts Not Reportable 01/10/17 04:30 Smudge Cells Not Reportable 01/10/17 04:30 Toxic Granulation Not Reportable 01/10/17 04:30 Toxic Vacuolation Not Reportable 01/10/17 04:30 Dohle Bodies Not Reportable 01/10/17 04:30 Pelger-Huet Anomaly Not Reportable 01/10/17 04:30 [place] Rods Not Reportable 01/10/17 04:30 Platelet Estimate Consistent w auto 01/10/17 04:30 Clumped Platelets Not Reportable 01/10/17 04:30 Plt Clumps, EDTA Not Reportable 01/10/17 04:30 Large Platelets Not Reportable 01/10/17 04:30 Giant Platelets Not Reportable 01/10/17 04:30 Platelet Satelliting Not Reportable 01/10/17 04:30 Plt Morphology Comment Not Reportable 01/10/17 04:30 RBC Morphology Not Reportable 01/10/17 04:30 Dimorphic RBCs Not Reportable 01/10/17 04:30 Polychromasia Not Reportable 01/10/17 04:30 Hypochromasia 1+ 01/10/17 04:30 Poikilocytosis Not Reportable 01/10/17 04:30 Anisocytosis Not Reportable 01/10/17 04:30 Microcytosis Not Reportable 01/10/17 04:30 Macrocytosis Not Reportable 01/10/17 04:30 Spherocytes Not Reportable 01/10/17 04:30 Pappenheimer Bodies Not Reportable 01/10/17 04:30 Sickle Cells Not Reportable 01/10/17 04:30 Target Cells Not Reportable 01/10/17 04:30 Tear Drop Cells Not Reportable 01/10/17 04:30 Ovalocytes Not Reportable 01/10/17 04:30 Helmet Cells Not Reportable 01/10/17 04:30 Jarrett-Zap Bodies Not Reportable 01/10/17 04:30 [place] Rings Not Reportable 01/10/17 04:30 [place] Cells Not Reportable 01/10/17 04:30 Bite Cells Not Reportable 01/10/17 04:30 Crenated Cell Not Reportable 01/10/17 04:30 Elliptocytes Not Reportable 01/10/17 04:30 Acanthocytes (Spur) Not Reportable 01/10/17 04:30 Rouleaux Not Reportable 01/10/17 04:30 Hemoglobin C Crystals Not Reportable 01/10/17 04:30 Schistocytes Not Reportable 01/10/17 04:30 Malaria parasites Not Reportable 01/10/17 04:30 Kyle Bodies Not Reportable 01/10/17 04:30 Hem Pathologist Commnt No 01/10/17 04:30 PT 14.1 Sec. (12.2-14.9) 01/17/17 04:10 INR 1.04 (0.87-1.13) 01/17/17 04:10 APTT 36.6 Sec. (24.2-36.6) 01/17/17 04:10 POC ABG pH 7.442 (7.35-7.45) 01/31/17 18:55 ABG pH 7.420 pH Units (7.350-7.450) 01/17/17 04:35 POC ABG pCO2 32.8 (35-45) L 01/31/17 18:55 ABG pCO2 34.5 mm Hg 01/17/17 04:35 POC ABG pO2 82 (80-105) 01/31/17 18:55 ABG pO2 160.3 mm Hg (80.0-90.0) H 01/17/17 04:35 POC ABG HCO3 22.4 01/31/17 18:55 ABG HCO3 21.9 mmol/L (20.0-26.0) 01/17/17 04:35 POC ABG Total CO2 23 01/31/17 18:55 POC ABG O2 Sat 97 01/31/17 18:55 ABG O2 Saturation 99.0 % (95.0-99.0) 01/17/17 04:35 ABG O2 Content 11.1 (0.0-44) 01/17/17 04:35 POC ABG Base Excess -2 01/31/17 18:55 ABG Base Excess -2.3 mmol/L (-2.0-3.0) L 01/17/17 04:35 ABG Hemoglobin 7.9 gm/dl (14.0-18.0) L 01/17/17 04:35 ABG Carboxyhemoglobin 1.5 % (0.0-5.0) 01/17/17 04:35 ABG Methemoglobin 0.5 % (0.0-1.5) 01/17/17 04:35 VBG pH 7.284 (7.320-7.420) L 01/09/17 10:16 Oxyhemoglobin 97.1 % (95.0-99.0) 01/17/17 04:35 FiO2 25 % 01/31/17 18:55 Sodium 137 mmol/L (137-145) 02/09/17 07:24 Potassium 4.9 mmol/L (3.6-5.0) 02/09/17 07:24 Chloride 95.5 mmol/L (98-107) L 02/09/17 07:24 Carbon Dioxide 29 mmol/L (22-30) 02/09/17 07:24 Anion Gap 17 mmol/L 02/09/17 07:24 BUN 52 mg/dL (9-20) H 02/09/17 07:24 Creatinine 0.8 mg/dL (0.8-1.5) 02/09/17 07:24 Estimated GFR > 60 ml/min 02/09/17 07:24 BUN/Creatinine Ratio 65 % 02/09/17 07:24 Glucose 277 mg/dL (75-100) H 02/09/17 07:24 POC Glucose 209 (70-105) H 02/20/17 05:10 Lactic Acid 0.80 mmol/L (0.7-2.0) 01/30/17 11:49 Calcium 9.4 mg/dL (8.4-10.2) 02/09/17 07:24 Phosphorus 3.60 mg/dL (2.5-4.5) 01/22/17 04:00 Magnesium 2.10 mg/dL (1.7-2.3) 01/22/17 04:00 Total Bilirubin 0.30 mg/dL (0.1-1.2) 01/22/17 04:00 AST 44 units/L (5-40) H 01/22/17 04:00 ALT 23 units/L (7-56) 01/22/17 04:00 Alkaline Phosphatase 379 units/L (35-129) H 01/22/17 04:00 Ammonia 35.0 umol/L (25-60) 01/09/17 10:16 Total Creatine Kinase 135 units/L (55-170) 01/09/17 10:16 CK-MB (CK-2) 7.1 ng/mL (0.0-4.0) H 01/09/17 10:16 CK-MB (CK-2) Rel Index 5.2 (0-4) H 01/09/17 10:16 Troponin T < 0.010 ng/mL (0.00-0.029) 01/09/17 10:16 NT-Pro-B Natriuret Pep 602.9 pg/mL (0-900) 01/09/17 10:16 Total Protein 7.9 g/dL (6.3-8.2) 01/22/17 04:00 Albumin 2.7 g/dL (3.9-5) L 01/22/17 04:00 Albumin/Globulin Ratio 0.5 % 01/22/17 04:00 TSH 52.800 mlU/mL (0.270-4.200) H 01/09/17 10:16 Free T4 0.78 ng/dL (0.76-1.46) 01/09/17 10: Total Cortisol 54.8 mcg/dL () 01/09/17 16:19 Urine Color Yellow (Yellow) 01/28/17 17:52 Urine Turbidity Clear (Clear) 01/28/17 17:52 Urine pH 6.0 (5.0-7.0) 01/28/17 17:52 Ur Specific [place] 1.016 (1.003-1.030) 01/28/17 17:52 Urine Protein 100 mg/dl mg/dL (Negative) 01/28/17 17:52 Urine Glucose (UA) >=500 mg/dL (Negative) 01/28/17 17:52 Urine Ketones Neg mg/dL (Negative) 01/28/17 17:52 Urine Blood Sm (Negative) 01/28/17 17:52 Urine Nitrite Neg (Negative) 01/28/17 17:52 Urine Bilirubin Neg (Negative) 01/28/17 17:52 Urine Urobilinogen < 2.0 mg/dL (<2.0) 01/28/17 17:52 Ur Leukocyte Esterase Lg (Negative) 01/28/17 17:52 Urine WBC (Auto) > 182.0 /HPF (0.0-6.0) H 01/28/17 17:52 Urine RBC (Auto) 113.0 /HPF (0.0-6.0) 01/28/17 17:52 Urine Bacteria (Auto) 2+ /HPF (Negative) 01/28/17 17:52 Urine WBC Clumps 3+ /HPF 01/28/17 17:52 Urine Mucus Few /HPF 01/14/17 14:07 Urine Yeast (Budding) 3+ /HPF 01/14/17 14:07 Salicylates < 0.3 mg/dL (2.8-20.0) L 01/09/17 10:16 Urine Opiates Screen Presumptive negative 01/09/17 10:23 Urine Methadone Screen Presumptive negative 01/09/17 10:23 Acetaminophen < 15.0 ug/mL (10.0-30.0) 01/09/17 10:16 Ur Barbiturates Screen Presumptive negative 01/09/17 10:23 Ur Phencyclidine Scrn Presumptive negative 01/09/17 10:23 Ur Amphetamines Screen Presumptive negative 01/09/17 10:23 U Benzodiazepines Scrn Presumptive negative 01/09/17 10:23 Urine Cocaine Screen Presumptive negative 01/09/17 10:23 U Marijuana (THC) Screen Presumptive negative 01/09/17 10:23 Drugs of Abuse Note Disclamer 01/09/17 10:23 Plasma/Serum Alcohol < 0.01 gm% (0-0.07) 01/09/17 10:16
[2017-02-20] MEDS: PEPCID PO SCH ×2 (10:26→22:46)
[2017-02-20] MEDS: NORMODYNE PO SCH ×2 (10:27→22:45)
[2017-02-20] MEDS: HEPARIN SUB-Q SCH ×2 (10:27→22:45)
[2017-02-20] MEDS: LEVEMIR (NF) SUB-Q SCH (10:28)
--- NOTE | 2017-02-20 12:13 | Progress Note ---
Assessment and Plan 51 y/o male found down, concern for sepsis and now encephalopathic requiring mechanical ventilation. No New recs for today. 1. continue supportive care 2. Spoke with Risk and the [employer] has requested that guardianship be persued. Dilemma is, once patient has been awarded guardianship, who will take him. Morally and ethically, given the prognosis provided by neurology, I do not feel placing a tracheostomy is the right thing to do. Currently guardianship filing is underway and will take about 90 days. 3. Will change vitals and physical assessment by nursing to q12 hours 4. change accuchecks to q8 CCT 31 minutes. Subjective Date of service: 02/20/17 Principal diagnosis: Acute respiratory failure,encephalopathy Interval history: No acute events. Objective Vital Signs - 12hr 02/20/17 02/20/17 02/20/17 00:38 03:46 03:48 Temperature 100.6 F H Pulse Rate 69 73 Blood Pressure 125/74 125/74 O2 Sat by Pulse 100 99 Oximetry 02/20/17 02/20/17 02/20/17 07:37 08:00 10:27 Temperature 97.9 F Pulse Rate 66 71 Blood Pressure 114/75 149/91 O2 Sat by Pulse 100 Oximetry 02/20/17 11:17 Temperature Pulse Rate 66 Blood Pressure 149/91 O2 Sat by Pulse 100 Oximetry Constitutional: comatose, other (orally intubated, on vent) Eyes: non-icteric ENT: oropharynx moist Neck: supple Effort: normal Ascultation: Bilateral: clear, diminished breath sounds Cardiovascular: regular rate and rhythm (no mrg) Gastrointestinal: normoactive bowel sounds, soft, non-tender, non-distended Integumentary: normal Extremities: no cyanosis, no edema, pink and warm Neurologic: other (unresponsive, flaccid extremities) Psychiatric: other (unable to obtain) CBC and BMP: 02/09/17 07:24 02/09/17 07:24 ABG, PT/INR, D-dimer: ABG POC ABG pH 7.442 (7.35-7.45) 01/31/17 18:55 ABG pH 7.420 pH Units (7.350-7.450) 01/17/17 04:35 POC ABG pCO2 32.8 (35-45) L 01/31/17 18:55 ABG pCO2 34.5 mm Hg 01/17/17 04:35 POC ABG pO2 82 (80-105) 01/31/17 18:55 ABG pO2 160.3 mm Hg (80.0-90.0) H 01/17/17 04:35 POC ABG HCO3 22.4 01/31/17 18:55 POC ABG Total CO2 23 01/31/17 18:55 POC ABG O2 Sat 97 01/31/17 18:55 ABG O2 Saturation 99.0 % (95.0-99.0) 01/17/17 04:35 PT/INR, D-dimer PT 14.1 Sec. (12.2-14.9) 01/17/17 04:10 INR 1.04 (0.87-1.13) 01/17/17 04:10 Abnormal lab findings: Abnormal Labs 01/09/17 01/09/17 01/09/17 12:49 13:13 14:21 WBC RBC Hgb Hct MCV MCH RDW Plt Count Lymph % (Auto) [place] % (Auto) Eos % (Auto) Seg Neutrophils % Seg Neuts % (Manual) Lymphocytes % (Manual) Seg Neutrophils # Seg Neutrophils # Man Lymphocytes # (Manual) POC ABG pH ABG pH POC ABG pCO2 POC ABG pO2 ABG pO2 ABG HCO3 ABG Base Excess ABG Hemoglobin Oxyhemoglobin Sodium Potassium Chloride Carbon Dioxide BUN Creatinine Glucose POC Glucose < 40 L 128 H 65 L Lactic Acid Calcium AST Alkaline Phosphatase Albumin Urine WBC (Auto) 01/09/17 01/09/17 01/09/17 15:09 16:28 17:14 WBC RBC Hgb Hct MCV MCH RDW Plt Count Lymph % (Auto) [place] % (Auto) Eos % (Auto) Seg Neutrophils % Seg Neuts % (Manual) Lymphocytes % (Manual) Seg Neutrophils # Seg Neutrophils # Man Lymphocytes # (Manual) POC ABG pH ABG pH POC ABG pCO2 POC ABG pO2 ABG pO2 ABG HCO3 ABG Base Excess ABG Hemoglobin Oxyhemoglobin Sodium Potassium Chloride Carbon Dioxide BUN Creatinine Glucose POC Glucose 120 H 44 L 112 H Lactic Acid Calcium AST Alkaline Phosphatase Albumin Urine WBC (Auto) 01/10/17 01/10/17 01/10/17 04:30 04:30 05:41 WBC 24.1 H RBC 3.38 L Hgb 8.5 L Hct 26.0 L MCV 77 L MCH 25 L RDW 17.9 H Plt Count 474 H Lymph % (Auto) [place] % (Auto) Eos % (Auto) Seg Neutrophils % Seg Neuts % (Manual) 88.0 H Lymphocytes % (Manual) 4.0 L Seg Neutrophils # Seg Neutrophils # Man 21.2 H Lymphocytes # (Manual) 1.0 L POC ABG pH ABG pH POC ABG pCO2 POC ABG pO2 ABG pO2 ABG HCO3 ABG Base Excess ABG Hemoglobin Oxyhemoglobin Sodium Potassium Chloride Carbon Dioxide 17 L BUN 27 H Creatinine Glucose POC Glucose 68 L Lactic Acid Calcium 7.5 L AST Alkaline Phosphatase Albumin Urine WBC (Auto) 01/10/17 01/10/17 01/10/17 05:45 07:47 10:50 WBC RBC Hgb Hct MCV MCH RDW Plt Count Lymph % (Auto) [place] % (Auto) Eos % (Auto) Seg Neutrophils % Seg Neuts % (Manual) Lymphocytes % (Manual) Seg Neutrophils # Seg Neutrophils # Man Lymphocytes # (Manual) POC ABG pH ABG pH POC ABG pCO2 26.6 L POC ABG pO2 207 H ABG pO2 ABG HCO3 ABG Base Excess ABG Hemoglobin Oxyhemoglobin Sodium Potassium Chloride Carbon Dioxide BUN Creatinine Glucose POC Glucose 148 H 165 H Lactic Acid Calcium AST Alkaline Phosphatase Albumin Urine WBC (Auto) 01/10/17 01/10/17 01/10/17 13:41 20:20 21:39 WBC RBC Hgb Hct MCV MCH RDW Plt Count Lymph % (Auto) [place] % (Auto) Eos % (Auto) Seg Neutrophils % Seg Neuts % (Manual) Lymphocytes % (Manual) Seg Neutrophils # Seg Neutrophils # Man Lymphocytes # (Manual) POC ABG pH ABG pH POC ABG pCO2 POC ABG pO2 ABG pO2 ABG HCO3 ABG Base Excess ABG Hemoglobin Oxyhemoglobin Sodium Potassium Chloride Carbon Dioxide BUN Creatinine Glucose POC Glucose 114 H 150 H 175 H Lactic Acid Calcium AST Alkaline Phosphatase Albumin Urine WBC (Auto) 01/10/17 01/11/17 01/11/17 23:24 00:19 04:06 WBC RBC Hgb Hct MCV MCH RDW Plt Count Lymph % (Auto) [place] % (Auto) Eos % (Auto) Seg Neutrophils % Seg Neuts % (Manual) Lymphocytes % (Manual) Seg Neutrophils # Seg Neutrophils # Man Lymphocytes # (Manual) POC ABG pH 7.463 H ABG pH POC ABG pCO2 26.2 L POC ABG pO2 185 H ABG pO2 ABG HCO3 ABG Base Excess ABG Hemoglobin Oxyhemoglobin Sodium Potassium Chloride Carbon Dioxide BUN Creatinine Glucose POC Glucose 155 H 163 H Lactic Acid Calcium AST Alkaline Phosphatase Albumin Urine WBC (Auto) 01/11/17 01/11/17 01/11/17 05:20 05:20 06:21 WBC 15.2 H RBC 3.40 L Hgb 8.9 L Hct 26.3 L MCV 78 L MCH 26 L RDW 18.6 H Plt Count 462 H Lymph % (Auto) 13.2 L [place] % (Auto) Eos % (Auto) Seg Neutrophils % 80.8 H Seg Neuts % (Manual) Lymphocytes % (Manual) Seg Neutrophils # 12.3 H Seg Neutrophils # Man Lymphocytes # (Manual) POC ABG pH ABG pH POC ABG pCO2 POC ABG pO2 ABG pO2 ABG HCO3 ABG Base Excess ABG Hemoglobin Oxyhemoglobin Sodium Potassium 3.4 L Chloride 111.5 H Carbon Dioxide 17 L BUN Creatinine Glucose 147 H POC Glucose 139 H Lactic Acid Calcium 8.0 L AST Alkaline Phosphatase Albumin Urine WBC (Auto) 01/11/17 01/11/17 01/11/17 07:57 11:46 16:50 WBC RBC Hgb Hct MCV MCH RDW Plt Count Lymph % (Auto) [place] % (Auto) Eos % (Auto) Seg Neutrophils % Seg Neuts % (Manual) Lymphocytes % (Manual) Seg Neutrophils # Seg Neutrophils # Man Lymphocytes # (Manual) POC ABG pH ABG pH POC ABG pCO2 POC ABG pO2 ABG pO2 ABG HCO3 ABG Base Excess ABG Hemoglobin Oxyhemoglobin Sodium Potassium Chloride Carbon Dioxide BUN Creatinine Glucose POC Glucose 188 H 199 H 235 H Lactic Acid Calcium AST Alkaline Phosphatase Albumin Urine WBC (Auto) 01/11/17 01/12/17 01/12/17 23:15 05:02 06:56 WBC RBC Hgb Hct MCV MCH RDW Plt Count Lymph % (Auto) [place] % (Auto) Eos % (Auto) Seg Neutrophils % Seg Neuts % (Manual) Lymphocytes % (Manual) Seg Neutrophils # Seg Neutrophils # Man Lymphocytes # (Manual) POC ABG pH ABG pH POC ABG pCO2 28.0 L POC ABG pO2 178 H ABG pO2 ABG HCO3 ABG Base Excess ABG Hemoglobin Oxyhemoglobin Sodium Potassium Chloride Carbon Dioxide BUN Creatinine Glucose POC Glucose 155 H 119 H Lactic Acid Calcium AST Alkaline Phosphatase Albumin Urine WBC (Auto) 01/12/17 01/13/17 01/13/17 14:50 03:37 03:37 WBC RBC 3.61 L Hgb 9.3 L Hct 28.0 L MCV 78 L MCH 26 L RDW 18.2 H Plt Count Lymph % (Auto) [place] % (Auto) Eos % (Auto) Seg Neutrophils % Seg Neuts % (Manual) Lymphocytes % (Manual) Seg Neutrophils # Seg Neutrophils # Man Lymphocytes # (Manual) POC ABG pH ABG pH POC ABG pCO2 POC ABG pO2 ABG pO2 ABG HCO3 ABG Base Excess ABG Hemoglobin Oxyhemoglobin Sodium Potassium Chloride 112.4 H Carbon Dioxide 19 L BUN Creatinine Glucose 118 H POC Glucose 164 H Lactic Acid Calcium 8.0 L AST Alkaline Phosphatase Albumin Urine WBC (Auto) 01/13/17 01/13/17 01/13/17 04:26 06:15 11:50 WBC RBC Hgb Hct MCV MCH RDW Plt Count Lymph % (Auto) [place] % (Auto) Eos % (Auto) Seg Neutrophils % Seg Neuts % (Manual) Lymphocytes % (Manual) Seg Neutrophils # Seg Neutrophils # Man Lymphocytes # (Manual) POC ABG pH 7.485 H ABG pH POC ABG pCO2 25.4 L POC ABG pO2 73 L ABG pO2 ABG HCO3 ABG Base Excess ABG Hemoglobin Oxyhemoglobin Sodium Potassium Chloride Carbon Dioxide BUN Creatinine Glucose POC Glucose 116 H 171 H Lactic Acid Calcium AST Alkaline Phosphatase Albumin Urine WBC (Auto) 01/13/17 01/14/17 01/14/17 17:31 00:02 04:50 WBC RBC 3.32 L Hgb 8.5 L Hct 26.1 L MCV 79 L MCH 26 L RDW 18.2 H Plt Count Lymph % (Auto) [place] % (Auto) 9.0 H Eos % (Auto) Seg Neutrophils % Seg Neuts % (Manual) Lymphocytes % (Manual) Seg Neutrophils # Seg Neutrophils # Man Lymphocytes # (Manual) POC ABG pH ABG pH POC ABG pCO2 POC ABG pO2 ABG pO2 ABG HCO3 ABG Base Excess ABG Hemoglobin Oxyhemoglobin Sodium Potassium Chloride Carbon Dioxide BUN Creatinine Glucose POC Glucose 203 H 157 H Lactic Acid Calcium AST Alkaline Phosphatase Albumin Urine WBC (Auto) 01/14/17 01/14/1701/14/17 04:50 05:10 11:27 WBC RBC Hgb Hct MCV MCH RDW Plt Count Lymph % (Auto) [place] % (Auto) Eos % (Auto) Seg Neutrophils % Seg Neuts % (Manual) Lymphocytes % (Manual) Seg Neutrophils # Seg Neutrophils # Man Lymphocytes # (Manual) POC ABG pH ABG pH POC ABG pCO2 POC ABG pO2 ABG pO2 ABG HCO3 ABG Base Excess ABG Hemoglobin Oxyhemoglobin Sodium Potassium Chloride 112.5 H Carbon Dioxide BUN Creatinine Glucose 149 H POC Glucose 176 H 147 H Lactic Acid Calcium 8.1 L AST Alkaline Phosphatase Albumin Urine WBC (Auto) 01/14/17 01/14/17 01/15/17 14:07 16:52 00:04 WBC RBC Hgb Hct MCV MCH RDW Plt Count Lymph % (Auto) [place] % (Auto) Eos % (Auto) Seg Neutrophils % Seg Neuts % (Manual) Lymphocytes % (Manual) Seg Neutrophils # Seg Neutrophils # Man Lymphocytes # (Manual) POC ABG pH ABG pH POC ABG pCO2 POC ABG pO2 ABG pO2 ABG HCO3 ABG Base Excess ABG Hemoglobin Oxyhemoglobin Sodium Potassium Chloride Carbon Dioxide BUN Creatinine Glucose POC Glucose 131 H 193 H Lactic Acid Calcium AST Alkaline Phosphatase Albumin Urine WBC (Auto) 53.0 H 01/15/17 01/15/17 01/15/17 05:26 11:49 17:47 WBC RBC Hgb Hct MCV MCH RDW Plt Count Lymph % (Auto) [place] % (Auto) Eos % (Auto) Seg Neutrophils % Seg Neuts % (Manual) Lymphocytes % (Manual) Seg Neutrophils # Seg Neutrophils # Man Lymphocytes # (Manual) POC ABG pH ABG pH POC ABG pCO2 POC ABG pO2 ABG pO2 ABG HCO3 ABG Base Excess ABG Hemoglobin Oxyhemoglobin Sodium Potassium Chloride Carbon Dioxide BUN Creatinine Glucose POC Glucose 215 H 121 H 211 H Lactic Acid Calcium AST Alkaline Phosphatase Albumin Urine WBC (Auto) 01/15/17 01/16/17 01/16/17 21:33 04:30 05:28 WBC RBC Hgb Hct MCV MCH RDW Plt Count Lymph % (Auto) [place] % (Auto) Eos % (Auto) Seg Neutrophils % Seg Neuts % (Manual) Lymphocytes % (Manual) Seg Neutrophils # Seg Neutrophils # Man Lymphocytes # (Manual) POC ABG pH ABG pH 7.457 H POC ABG pCO2 POC ABG pO2 ABG pO2 55.1 L ABG HCO3 19.4 L ABG Base Excess -4.0 L ABG Hemoglobin 6.8 L Oxyhemoglobin 94.9 L Sodium Potassium Chloride Carbon Dioxide BUN Creatinine Glucose POC Glucose 275 H 271 H Lactic Acid Calcium AST Alkaline Phosphatase Albumin Urine WBC (Auto) 01/16/17 01/16/17 01/17/17 13:45 21:39 04:10 WBC 4.4 L RBC 2.98 L Hgb 7.7 L Hct 23.3 L MCV 78 L MCH 26 L RDW 18.1 H Plt Count Lymph % (Auto) [place] % (Auto) Eos % (Auto) Seg Neutrophils % Seg Neuts % (Manual) Lymphocytes % (Manual) Seg Neutrophils # Seg Neutrophils # Man Lymphocytes # (Manual) POC ABG pH ABG pH POC ABG pCO2 POC ABG pO2 ABG pO2 ABG HCO3 ABG Base Excess ABG Hemoglobin Oxyhemoglobin Sodium Potassium Chloride Carbon Dioxide BUN Creatinine Glucose POC Glucose 236 H 258 H Lactic Acid Calcium AST Alkaline Phosphatase Albumin Urine WBC (Auto) 01/17/17 01/17/17 01/17/17 04:10 04:35 12:23 WBC RBC Hgb Hct MCV MCH RDW Plt Count Lymph % (Auto) [place] % (Auto) Eos % (Auto) Seg Neutrophils % Seg Neuts % (Manual) Lymphocytes % (Manual) Seg Neutrophils # Seg Neutrophils # Man Lymphocytes # (Manual) POC ABG pH ABG pH POC ABG pCO2 POC ABG pO2 ABG pO2 160.3 H ABG HCO3 ABG Base Excess -2.3 L ABG Hemoglobin 7.9 L Oxyhemoglobin Sodium Potassium 3.3 L Chloride 108.7 H Carbon Dioxide 20 L BUN 8 L Creatinine Glucose 202 H POC Glucose 321 H Lactic Acid Calcium 7.6 L AST Alkaline Phosphatase Albumin Urine WBC (Auto) 01/17/17 01/18/17 01/18/17 16:01 05:07 12:09 WBC RBC Hgb Hct MCV MCH RDW Plt Count Lymph % (Auto) [place] % (Auto) Eos % (Auto) Seg Neutrophils % Seg Neuts % (Manual) Lymphocytes % (Manual) Seg Neutrophils # Seg Neutrophils # Man Lymphocytes # (Manual) POC ABG pH ABG pH POC ABG pCO2 POC ABG pO2 ABG pO2 ABG HCO3 ABG Base Excess ABG Hemoglobin Oxyhemoglobin Sodium Potassium Chloride Carbon Dioxide BUN Creatinine Glucose POC Glucose 239 H 155 H 203 H Lactic Acid Calcium AST Alkaline Phosphatase Albumin Urine WBC (Auto) 01/18/17 01/18/17 01/19/17 17:54 23:43 04:28 WBC RBC Hgb Hct MCV MCH RDW Plt Count Lymph % (Auto) [place] % (Auto) Eos % (Auto) Seg Neutrophils % Seg Neuts % (Manual) Lymphocytes % (Manual) Seg Neutrophils # Seg Neutrophils # Man Lymphocytes # (Manual) POC ABG pH ABG pH POC ABG pCO2 POC ABG pO2 ABG pO2 ABG HCO3 ABG Base Excess ABG Hemoglobin Oxyhemoglobin Sodium Potassium Chloride Carbon Dioxide BUN Creatinine Glucose POC Glucose 132 H 125 H 182 H Lactic Acid Calcium AST Alkaline Phosphatase Albumin Urine WBC (Auto) 01/19/17 01/19/17 01/20/17 12:11 17:23 00:12 WBC RBC Hgb Hct MCV MCH RDW Plt Count Lymph % (Auto) [place] % (Auto) Eos % (Auto) Seg Neutrophils % Seg Neuts % (Manual) Lymphocytes % (Manual) Seg Neutrophils # Seg Neutrophils # Man Lymphocytes # (Manual) POC ABG pH ABG pH POC ABG pCO2 POC ABG pO2 ABG pO2 ABG HCO3 ABG Base Excess ABG Hemoglobin Oxyhemoglobin Sodium Potassium Chloride Carbon Dioxide BUN Creatinine Glucose POC Glucose 153 H 66 L 139 H Lactic Acid Calcium AST Alkaline Phosphatase Albumin Urine WBC (Auto) 01/20/17 01/20/17 01/20/17 05:44 11:48 17:42 WBC RBC Hgb Hct MCV MCH RDW Plt Count Lymph % (Auto) [place] % (Auto) Eos % (Auto) Seg Neutrophils % Seg Neuts % (Manual) Lymphocytes % (Manual) Seg Neutrophils # Seg Neutrophils # Man Lymphocytes # (Manual) POC ABG pH ABG pH POC ABG pCO2 POC ABG pO2 ABG pO2 ABG HCO3 ABG Base Excess ABG Hemoglobin Oxyhemoglobin Sodium Potassium Chloride Carbon Dioxide BUN Creatinine Glucose POC Glucose 176 H 218 H 132 H Lactic Acid Calcium AST Alkaline Phosphatase Albumin Urine WBC (Auto) 01/20/17 01/21/17 01/21/17 23:43 05:34 11:17 WBC RBC Hgb Hct MCV MCH RDW Plt Count Lymph % (Auto) [place] % (Auto) Eos % (Auto) Seg Neutrophils % Seg Neuts % (Manual) Lymphocytes % (Manual) Seg Neutrophils # Seg Neutrophils # Man Lymphocytes # (Manual) POC ABG pH ABG pH POC ABG pCO2 POC ABG pO2 ABG pO2 ABG HCO3 ABG Base Excess ABG Hemoglobin Oxyhemoglobin Sodium Potassium Chloride Carbon Dioxide BUN Creatinine Glucose POC Glucose 178 H 106 H 213 H Lactic Acid Calcium AST Alkaline Phosphatase Albumin Urine WBC (Auto) 01/21/17 01/22/17 01/22/17 23:37 04:00 04:00 WBC RBC 3.26 L Hgb 8.3 L Hct 25.5 L MCV 78 L MCH 25 L RDW 17.9 H Plt Count Lymph % (Auto) [place] % (Auto) 7.9 H Eos % (Auto) 6.2 H Seg Neutrophils % Seg Neuts % (Manual) Lymphocytes % (Manual) Seg Neutrophils # Seg Neutrophils # Man Lymphocytes # (Manual) POC ABG pH ABG pH POC ABG pCO2 POC ABG pO2 ABG pO2 ABG HCO3 ABG Base Excess ABG Hemoglobin Oxyhemoglobin Sodium Potassium Chloride 95.5 L Carbon Dioxide 31 H D BUN Creatinine Glucose 134 H POC Glucose 140 H Lactic Acid Calcium AST 44 H Alkaline Phosphatase 379 H Albumin 2.7 L Urine WBC (Auto) 01/22/17 01/22/17 01/22/17 04:58 12:12 18:12 WBC RBC Hgb Hct MCV MCH RDW Plt Count Lymph % (Auto) [place] % (Auto) Eos % (Auto) Seg Neutrophils % Seg Neuts % (Manual) Lymphocytes % (Manual) Seg Neutrophils # Seg Neutrophils # Man Lymphocytes # (Manual) POC ABG pH ABG pH POC ABG pCO2 POC ABG pO2 ABG pO2 ABG HCO3 ABG Base Excess ABG Hemoglobin Oxyhemoglobin Sodium Potassium Chloride Carbon Dioxide BUN Creatinine Glucose POC Glucose 146 H 255 H 182 H Lactic Acid Calcium AST Alkaline Phosphatase Albumin Urine WBC (Auto) 01/22/17 01/23/17 01/23/17 23:39 04:43 12:12 WBC RBC Hgb Hct MCV MCH RDW Plt Count Lymph % (Auto) [place] % (Auto) Eos % (Auto) Seg Neutrophils % Seg Neuts % (Manual) Lymphocytes % (Manual) Seg Neutrophils # Seg Neutrophils # Man Lymphocytes # (Manual) POC ABG pH ABG pH POC ABG pCO2 POC ABG pO2 ABG pO2 ABG HCO3 ABG Base Excess ABG Hemoglobin Oxyhemoglobin Sodium Potassium Chloride Carbon Dioxide BUN Creatinine Glucose POC Glucose 134 H 218 H 128 H Lactic Acid Calcium AST Alkaline Phosphatase Albumin Urine WBC (Auto) 01/23/17 01/24/17 01/24/17 17:36 00:08 05:16 WBC RBC Hgb Hct MCV MCH RDW Plt Count Lymph % (Auto) [place] % (Auto) Eos % (Auto) Seg Neutrophils % Seg Neuts % (Manual) Lymphocytes % (Manual) Seg Neutrophils # Seg Neutrophils # Man Lymphocytes # (Manual) POC ABG pH ABG pH POC ABG pCO2 POC ABG pO2 ABG pO2 ABG HCO3 ABG Base Excess ABG Hemoglobin Oxyhemoglobin Sodium Potassium Chloride Carbon Dioxide BUN Creatinine Glucose POC Glucose 156 H 129 H 169 H Lactic Acid Calcium AST Alkaline Phosphatase Albumin Urine WBC (Auto) 01/24/17 01/24/17 01/24/17 11:40 17:43 23:23 WBC RBC Hgb Hct MCV MCH RDW Plt Count Lymph % (Auto) [place] % (Auto) Eos % (Auto) Seg Neutrophils % Seg Neuts % (Manual) Lymphocytes % (Manual) Seg Neutrophils # Seg Neutrophils # Man Lymphocytes # (Manual) POC ABG pH ABG pH POC ABG pCO2 POC ABG pO2 ABG pO2 ABG HCO3 ABG Base Excess ABG Hemoglobin Oxyhemoglobin Sodium Potassium Chloride Carbon Dioxide BUN Creatinine Glucose POC Glucose 187 H 215 H 222 H Lactic Acid Calcium AST Alkaline Phosphatase Albumin Urine WBC (Auto) 01/25/17 01/25/17 01/25/17 04:56 11:52 17:37 WBC RBC Hgb Hct MCV MCH RDW Plt Count Lymph % (Auto) [place] % (Auto) Eos % (Auto) Seg Neutrophils % Seg Neuts % (Manual) Lymphocytes % (Manual) Seg Neutrophils # Seg Neutrophils # Man Lymphocytes # (Manual) POC ABG pH ABG pH POC ABG pCO2 POC ABG pO2 ABG pO2 ABG HCO3 ABG Base Excess ABG Hemoglobin Oxyhemoglobin Sodium Potassium Chloride Carbon Dioxide BUN Creatinine Glucose POC Glucose 210 H 284 H 218 H Lactic Acid Calcium AST Alkaline Phosphatase Albumin Urine WBC (Auto) 01/26/17 01/26/17 01/26/17 00:02 05:33 12:17 WBC RBC Hgb Hct MCV MCH RDW Plt Count Lymph % (Auto) [place] % (Auto) Eos % (Auto) Seg Neutrophils % Seg Neuts % (Manual) Lymphocytes % (Manual) Seg Neutrophils # Seg Neutrophils # Man Lymphocytes # (Manual) POC ABG pH ABG pH POC ABG pCO2 POC ABG pO2 ABG pO2 ABG HCO3 ABG Base Excess ABG Hemoglobin Oxyhemoglobin Sodium Potassium Chloride Carbon Dioxide BUN Creatinine Glucose POC Glucose 192 H 199 H 227 H Lactic Acid Calcium AST Alkaline Phosphatase Albumin Urine WBC (Auto) 01/26/17 01/26/17 01/27/17 17:50 23:57 05:31 WBC RBC Hgb Hct MCV MCH RDW Plt Count Lymph % (Auto) [place] % (Auto) Eos % (Auto) Seg Neutrophils % Seg Neuts % (Manual) Lymphocytes % (Manual) Seg Neutrophils # Seg Neutrophils # Man Lymphocytes # (Manual) POC ABG pH ABG pH POC ABG pCO2 POC ABG pO2 ABG pO2 ABG HCO3 ABG Base Excess ABG Hemoglobin Oxyhemoglobin Sodium Potassium Chloride Carbon Dioxide BUN Creatinine Glucose POC Glucose 229 H 186 H 285 H Lactic Acid Calcium AST Alkaline Phosphatase Albumin Urine WBC (Auto) 01/27/17 01/27/17 01/27/17 11:42 17:47 23:58 WBC RBC Hgb Hct MCV MCH RDW Plt Count Lymph % (Auto) [place] % (Auto) Eos % (Auto) Seg Neutrophils % Seg Neuts % (Manual) Lymphocytes % (Manual) Seg Neutrophils # Seg Neutrophils # Man Lymphocytes # (Manual) POC ABG pH ABG pH POC ABG pCO2 POC ABG pO2 ABG pO2 ABG HCO3 ABG Base Excess ABG Hemoglobin Oxyhemoglobin Sodium Potassium Chloride Carbon Dioxide BUN Creatinine Glucose POC Glucose 260 H 329 H 225 H Lactic Acid Calcium AST Alkaline Phosphatase Albumin Urine WBC (Auto) 01/27/17 01/27/17 01/28/17 Unknown Unknown 03:44 WBC 12.1 H RBC 3.28 L 3.14 L Hgb 8.5 L 8.2 L Hct 25.5 L 24.1 L MCV 78 L 77 L MCH 26 L 26 L RDW 16.8 H 16.9 H Plt Count 601 H 567 H Lymph % (Auto) [place] % (Auto) Eos % (Auto) Seg Neutrophils % Seg Neuts % (Manual) Lymphocytes % (Manual) Seg Neutrophils # Seg Neutrophils # Man Lymphocytes # (Manual) POC ABG pH ABG pH POC ABG pCO2 POC ABG pO2 ABG pO2 ABG HCO3 ABG Base Excess ABG Hemoglobin Oxyhemoglobin Sodium 128 L Potassium 5.4 H Chloride 87.5 L Carbon Dioxide BUN 44 H Creatinine Glucose 250 H POC Glucose Lactic Acid Calcium AST Alkaline Phosphatase Albumin Urine WBC (Auto) 01/28/17 01/28/17 01/28/17 03:44 11:43 16:47 WBC RBC Hgb Hct MCV MCH RDW Plt Count Lymph % (Auto) [place] % (Auto) Eos % (Auto) Seg Neutrophils % Seg Neuts % (Manual) Lymphocytes % (Manual) Seg Neutrophils # Seg Neutrophils # Man Lymphocytes # (Manual) POC ABG pH ABG pH POC ABG pCO2 POC ABG pO2 ABG pO2 ABG HCO3 ABG Base Excess ABG Hemoglobin Oxyhemoglobin Sodium Potassium Chloride Carbon Dioxide BUN 42 H Creatinine Glucose 128 H POC Glucose 351 H 249 H Lactic Acid Calcium AST Alkaline Phosphatase Albumin Urine WBC (Auto) 01/28/17 01/29/17 01/29/17 17:52 05:25 05:25 WBC 13.6 H RBC 3.25 L Hgb 8.3 L Hct 25.1 L MCV 77 L MCH 26 L RDW 16.8 H Plt Count 514 H Lymph % (Auto) [place] % (Auto) Eos % (Auto) Seg Neutrophils % Seg Neuts % (Manual) Lymphocytes % (Manual) Seg Neutrophils # Seg Neutrophils # Man Lymphocytes # (Manual) POC ABG pH ABG pH POC ABG pCO2 POC ABG pO2 ABG pO2 ABG HCO3 ABG Base Excess ABG Hemoglobin Oxyhemoglobin Sodium Potassium Chloride 97.8 L Carbon Dioxide BUN 34 H Creatinine Glucose 222 H POC Glucose Lactic Acid Calcium AST Alkaline Phosphatase Albumin Urine WBC (Auto) > 182.0 H 01/29/17 01/29/17 01/29/17 09:32 11:56 18:11 WBC RBC Hgb Hct MCV MCH RDW Plt Count Lymph % (Auto) [place] % (Auto) Eos % (Auto) Seg Neutrophils % Seg Neuts % (Manual) Lymphocytes % (Manual) Seg Neutrophils # Seg Neutrophils # Man Lymphocytes # (Manual) POC ABG pH ABG pH POC ABG pCO2 POC ABG pO2 ABG pO2 ABG HCO3 ABG Base Excess ABG Hemoglobin Oxyhemoglobin Sodium Potassium Chloride Carbon Dioxide BUN Creatinine Glucose POC Glucose 261 H 215 H Lactic Acid 2.50 H* Calcium AST Alkaline Phosphatase Albumin Urine WBC (Auto) 01/29/17 01/30/17 01/30/17 23:55 05:31 05:31 WBC 15.2 H RBC 3.09 L Hgb 7.9 L Hct 23.9 L MCV 77 L MCH 26 L RDW 16.9 H Plt Count 569 H Lymph % (Auto) [place] % (Auto) Eos % (Auto) Seg Neutrophils % Seg Neuts % (Manual) Lymphocytes % (Manual) Seg Neutrophils # Seg Neutrophils # Man Lymphocytes # (Manual) POC ABG pH ABG pH POC ABG pCO2 POC ABG pO2 ABG pO2 ABG HCO3 ABG Base Excess ABG Hemoglobin Oxyhemoglobin Sodium Potassium Chloride Carbon Dioxide BUN 24 H Creatinine Glucose 235 H POC Glucose 176 H Lactic Acid Calcium AST Alkaline Phosphatase Albumin Urine WBC (Auto) 01/30/17 01/30/17 01/30/17 05:34 11:38 17:58 WBC RBC Hgb Hct MCV MCH RDW Plt Count Lymph % (Auto) [place] % (Auto) Eos % (Auto) Seg Neutrophils % Seg Neuts % (Manual) Lymphocytes % (Manual) Seg Neutrophils # Seg Neutrophils # Man Lymphocytes # (Manual) POC ABG pH ABG pH POC ABG pCO2 POC ABG pO2 ABG pO2 ABG HCO3 ABG Base Excess ABG Hemoglobin Oxyhemoglobin Sodium Potassium Chloride Carbon Dioxide BUN Creatinine Glucose POC Glucose 243 H 298 H 208 H Lactic Acid Calcium AST Alkaline Phosphatase Albumin Urine WBC (Auto) 01/30/17 01/31/17 01/31/17 23:29 04:39 04:39 WBC 11.4 H RBC 3.22 L Hgb 8.2 L Hct 24.9 L MCV 78 L MCH 25 L RDW 17.2 H Plt Count 576 H Lymph % (Auto) [place] % (Auto) Eos % (Auto) Seg Neutrophils % Seg Neuts % (Manual) Lymphocytes % (Manual) Seg Neutrophils # Seg Neutrophils # Man Lymphocytes # (Manual) POC ABG pH ABG pH POC ABG pCO2 POC ABG pO2 ABG pO2 ABG HCO3 ABG Base Excess ABG Hemoglobin Oxyhemoglobin Sodium Potassium Chloride Carbon Dioxide BUN Creatinine 0.7 L Glucose 223 H POC Glucose 245 H Lactic Acid Calcium AST Alkaline Phosphatase Albumin Urine WBC (Auto) 01/31/17 01/31/17 01/31/17 05:57 12:23 17:41 WBC RBC Hgb Hct MCV MCH RDW Plt Count Lymph % (Auto) [place] % (Auto) Eos % (Auto) Seg Neutrophils % Seg Neuts % (Manual) Lymphocytes % (Manual) Seg Neutrophils # Seg Neutrophils # Man Lymphocytes # (Manual) POC ABG pH ABG pH POC ABG pCO2 POC ABG pO2 ABG pO2 ABG HCO3 ABG Base Excess ABG Hemoglobin Oxyhemoglobin Sodium Potassium Chloride Carbon Dioxide BUN Creatinine Glucose POC Glucose 264 H 252 H 208 H Lactic Acid Calcium AST Alkaline Phosphatase Albumin Urine WBC (Auto) 01/31/17 01/31/17 02/01/17 18:55 22:59 03:38 WBC RBC 2.81 L Hgb 7.4 L Hct 22.1 L MCV 79 L MCH 27 L RDW 17.0 H Plt Count 540 H Lymph % (Auto) [place] % (Auto) Eos % (Auto) Seg Neutrophils % Seg Neuts % (Manual) Lymphocytes % (Manual) Seg Neutrophils # Seg Neutrophils # Man Lymphocytes # (Manual) POC ABG pH ABG pH POC ABG pCO2 32.8 L POC ABG pO2 ABG pO2 ABG HCO3 ABG Base Excess ABG Hemoglobin Oxyhemoglobin Sodium Potassium Chloride Carbon Dioxide BUN Creatinine Glucose POC Glucose 40 L Lactic Acid Calcium AST Alkaline Phosphatase Albumin Urine WBC (Auto) 02/01/17 02/01/17 02/01/17 03:38 05:17 12:19 WBC RBC Hgb Hct MCV MCH RDW Plt Count Lymph % (Auto) [place] % (Auto) Eos % (Auto) Seg Neutrophils % Seg Neuts % (Manual) Lymphocytes % (Manual) Seg Neutrophils # Seg Neutrophils # Man Lymphocytes # (Manual) POC ABG pH ABG pH POC ABG pCO2 POC ABG pO2 ABG pO2 ABG HCO3 ABG Base Excess ABG Hemoglobin Oxyhemoglobin Sodium Potassium Chloride Carbon Dioxide 21 L BUN Creatinine 0.7 L Glucose POC Glucose 140 H 213 H Lactic Acid Calcium AST Alkaline Phosphatase Albumin Urine WBC (Auto) 02/01/17 02/01/17 02/02/17 16:44 23:59 05:14 WBC RBC Hgb Hct MCV MCH RDW Plt Count Lymph % (Auto) [place] % (Auto) Eos % (Auto) Seg Neutrophils % Seg Neuts % (Manual) Lymphocytes % (Manual) Seg Neutrophils # Seg Neutrophils # Man Lymphocytes # (Manual) POC ABG pH ABG pH POC ABG pCO2 POC ABG pO2 ABG pO2 ABG HCO3 ABG Base Excess ABG Hemoglobin Oxyhemoglobin Sodium Potassium Chloride Carbon Dioxide BUN Creatinine Glucose POC Glucose 172 H 181 H 194 H Lactic Acid Calcium AST Alkaline Phosphatase Albumin Urine WBC (Auto) 02/02/17 02/02/17 02/02/17 11:24 11:46 11:46 WBC RBC 2.94 L Hgb 7.5 L Hct 23.0 L MCV 78 L MCH 25 L RDW 16.9 H Plt Count 520 H Lymph % (Auto) [place] % (Auto) Eos % (Auto) Seg Neutrophils % Seg Neuts % (Manual) Lymphocytes % (Manual) Seg Neutrophils # Seg Neutrophils # Man Lymphocytes # (Manual) POC ABG pH ABG pH POC ABG pCO2 POC ABG pO2 ABG pO2 ABG HCO3 ABG Base Excess ABG Hemoglobin Oxyhemoglobin Sodium Potassium Chloride Carbon Dioxide BUN Creatinine 0.6 L Glucose 189 H POC Glucose 209 H Lactic Acid Calcium 8.1 L AST Alkaline Phosphatase Albumin Urine WBC (Auto) 02/02/17 02/02/17 02/03/17 17:47 23:32 05:53 WBC RBC Hgb Hct MCV MCH RDW Plt Count Lymph % (Auto) [place] % (Auto) Eos % (Auto) Seg Neutrophils % Seg Neuts % (Manual) Lymphocytes % (Manual) Seg Neutrophils # Seg Neutrophils # Man Lymphocytes # (Manual) POC ABG pH ABG pH POC ABG pCO2 POC ABG pO2 ABG pO2 ABG HCO3 ABG Base Excess ABG Hemoglobin Oxyhemoglobin Sodium Potassium Chloride Carbon Dioxide BUN Creatinine Glucose POC Glucose 147 H 176 H 224 H Lactic Acid Calcium AST Alkaline Phosphatase Albumin Urine WBC (Auto) 02/03/17 02/03/17 02/03/17 11:19 16:59 23:38 WBC RBC Hgb Hct MCV MCH RDW Plt Count Lymph % (Auto) [place] % (Auto) Eos % (Auto) Seg Neutrophils % Seg Neuts % (Manual) Lymphocytes % (Manual) Seg Neutrophils # Seg Neutrophils # Man Lymphocytes # (Manual) POC ABG pH ABG pH POC ABG pCO2 POC ABG pO2 ABG pO2 ABG HCO3 ABG Base Excess ABG Hemoglobin Oxyhemoglobin Sodium Potassium Chloride Carbon Dioxide BUN Creatinine Glucose POC Glucose 228 H 189 H 191 H Lactic Acid Calcium AST Alkaline Phosphatase Albumin Urine WBC (Auto) 02/04/17 02/04/17 02/04/17 05:45 11:20 17:20 WBC RBC Hgb Hct MCV MCH RDW Plt Count Lymph % (Auto) [place] % (Auto) Eos % (Auto) Seg Neutrophils % Seg Neuts % (Manual) Lymphocytes % (Manual) Seg Neutrophils # Seg Neutrophils # Man Lymphocytes # (Manual) POC ABG pH ABG pH POC ABG pCO2 POC ABG pO2 ABG pO2 ABG HCO3 ABG Base Excess ABG Hemoglobin Oxyhemoglobin Sodium Potassium Chloride Carbon Dioxide BUN Creatinine Glucose POC Glucose 251 H 243 H 163 H Lactic Acid Calcium AST Alkaline Phosphatase Albumin Urine WBC (Auto) 02/05/17 02/05/17 02/05/17 00:17 05:38 12:38 WBC RBC Hgb Hct MCV MCH RDW Plt Count Lymph % (Auto) [place] % (Auto) Eos % (Auto) Seg Neutrophils % Seg Neuts % (Manual) Lymphocytes % (Manual) Seg Neutrophils # Seg Neutrophils # Man Lymphocytes # (Manual) POC ABG pH ABG pH POC ABG pCO2 POC ABG pO2 ABG pO2 ABG HCO3 ABG Base Excess ABG Hemoglobin Oxyhemoglobin Sodium Potassium Chloride Carbon Dioxide BUN Creatinine Glucose POC Glucose 200 H 248 H 241 H Lactic Acid Calcium AST Alkaline Phosphatase Albumin Urine WBC (Auto) 02/05/17 02/05/17 02/06/17 16:29 23:56 05:30 WBC RBC Hgb Hct MCV MCH RDW Plt Count Lymph % (Auto) [place] % (Auto) Eos % (Auto) Seg Neutrophils % Seg Neuts % (Manual) Lymphocytes % (Manual) Seg Neutrophils # Seg Neutrophils # Man Lymphocytes # (Manual) POC ABG pH ABG pH POC ABG pCO2 POC ABG pO2 ABG pO2 ABG HCO3 ABG Base Excess ABG Hemoglobin Oxyhemoglobin Sodium Potassium Chloride Carbon Dioxide BUN Creatinine Glucose POC Glucose 257 H 258 H 120 H Lactic Acid Calcium AST Alkaline Phosphatase Albumin Urine WBC (Auto) 02/06/17 02/06/17 02/06/17 11:50 17:11 23:50 WBC RBC Hgb Hct MCV MCH RDW Plt Count Lymph % (Auto) [place] % (Auto) Eos % (Auto) Seg Neutrophils % Seg Neuts % (Manual) Lymphocytes % (Manual) Seg Neutrophils # Seg Neutrophils # Man Lymphocytes # (Manual) POC ABG pH ABG pH POC ABG pCO2 POC ABG pO2 ABG pO2 ABG HCO3 ABG Base Excess ABG Hemoglobin Oxyhemoglobin Sodium Potassium Chloride Carbon Dioxide BUN Creatinine Glucose POC Glucose 254 H 149 H 240 H Lactic Acid Calcium AST Alkaline Phosphatase Albumin Urine WBC (Auto) 02/07/17 02/07/17 02/07/17 05:22 11:15 18:33 WBC RBC Hgb Hct MCV MCH RDW Plt Count Lymph % (Auto) [place] % (Auto) Eos % (Auto) Seg Neutrophils % Seg Neuts % (Manual) Lymphocytes % (Manual) Seg Neutrophils # Seg Neutrophils # Man Lymphocytes # (Manual) POC ABG pH ABG pH POC ABG pCO2 POC ABG pO2 ABG pO2 ABG HCO3 ABG Base Excess ABG Hemoglobin Oxyhemoglobin Sodium Potassium Chloride Carbon Dioxide BUN Creatinine Glucose POC Glucose 258 H 239 H 176 H Lactic Acid Calcium AST Alkaline Phosphatase Albumin Urine WBC (Auto) 02/07/17 02/08/17 02/08/17 23:59 06:15 11:55 WBC RBC Hgb Hct MCV MCH RDW Plt Count Lymph % (Auto) [place] % (Auto) Eos % (Auto) Seg Neutrophils % Seg Neuts % (Manual) Lymphocytes % (Manual) Seg Neutrophils # Seg Neutrophils # Man Lymphocytes # (Manual) POC ABG pH ABG pH POC ABG pCO2 POC ABG pO2 ABG pO2 ABG HCO3 ABG Base Excess ABG Hemoglobin Oxyhemoglobin Sodium Potassium Chloride Carbon Dioxide BUN Creatinine Glucose POC Glucose 186 H 195 H 129 H Lactic Acid Calcium AST Alkaline Phosphatase Albumin Urine WBC (Auto) 02/08/17 02/08/17 02/09/17 16:55 23:51 05:51 WBC RBC Hgb Hct MCV MCH RDW Plt Count Lymph % (Auto) [place] % (Auto) Eos % (Auto) Seg Neutrophils % Seg Neuts % (Manual) Lymphocytes % (Manual) Seg Neutrophils # Seg Neutrophils # Man Lymphocytes # (Manual) POC ABG pH ABG pH POC ABG pCO2 POC ABG pO2 ABG pO2 ABG HCO3 ABG Base Excess ABG Hemoglobin Oxyhemoglobin Sodium Potassium Chloride Carbon Dioxide BUN Creatinine Glucose POC Glucose 246 H 262 H 295 H Lactic Acid Calcium AST Alkaline Phosphatase Albumin Urine WBC (Auto) 02/09/17 02/09/17 02/09/17 07:24 07:24 12:08 WBC 14.7 H RBC 3.39 L Hgb 8.9 L Hct 26.4 L MCV 78 L MCH 26 L RDW 18.4 H Plt Count 670 H Lymph % (Auto) 11.8 L [place] % (Auto) Eos % (Auto) Seg Neutrophils % 81.2 H Seg Neuts % (Manual) Lymphocytes % (Manual) Seg Neutrophils # 11.9 H Seg Neutrophils # Man Lymphocytes # (Manual) POC ABG pH ABG pH POC ABG pCO2 POC ABG pO2 ABG pO2 ABG HCO3 ABG Base Excess ABG Hemoglobin Oxyhemoglobin Sodium Potassium Chloride 95.5 L Carbon Dioxide BUN 52 H Creatinine Glucose 277 H POC Glucose 236 H Lactic Acid Calcium AST Alkaline Phosphatase Albumin Urine WBC (Auto) 02/09/17 02/10/17 02/10/17 18:39 00:01 05:44 WBC RBC Hgb Hct MCV MCH RDW Plt Count Lymph % (Auto) [place] % (Auto) Eos % (Auto) Seg Neutrophils % Seg Neuts % (Manual) Lymphocytes % (Manual) Seg Neutrophils # Seg Neutrophils # Man Lymphocytes # (Manual) POC ABG pH ABG pH POC ABG pCO2 POC ABG pO2 ABG pO2 ABG HCO3 ABG Base Excess ABG Hemoglobin Oxyhemoglobin Sodium Potassium Chloride Carbon Dioxide BUN Creatinine Glucose POC Glucose 151 H 210 H 201 H Lactic Acid Calcium AST Alkaline Phosphatase Albumin Urine WBC (Auto) 02/10/17 02/10/17 02/10/17 11:21 17:29 23:56 WBC RBC Hgb Hct MCV MCH RDW Plt Count Lymph % (Auto) [place] % (Auto) Eos % (Auto) Seg Neutrophils % Seg Neuts % (Manual) Lymphocytes % (Manual) Seg Neutrophils # Seg Neutrophils # Man Lymphocytes # (Manual) POC ABG pH ABG pH POC ABG pCO2 POC ABG pO2 ABG pO2 ABG HCO3 ABG Base Excess ABG Hemoglobin Oxyhemoglobin Sodium Potassium Chloride Carbon Dioxide BUN Creatinine Glucose POC Glucose 233 H 167 H 191 H Lactic Acid Calcium AST Alkaline Phosphatase Albumin Urine WBC (Auto) 02/11/17 02/11/17 02/11/17 05:24 12:25 17:03 WBC RBC Hgb Hct MCV MCH RDW Plt Count Lymph % (Auto) [place] % (Auto) Eos % (Auto) Seg Neutrophils % Seg Neuts % (Manual) Lymphocytes % (Manual) Seg Neutrophils # Seg Neutrophils # Man Lymphocytes # (Manual) POC ABG pH ABG pH POC ABG pCO2 POC ABG pO2 ABG pO2 ABG HCO3 ABG Base Excess ABG Hemoglobin Oxyhemoglobin Sodium Potassium Chloride Carbon Dioxide BUN Creatinine Glucose POC Glucose 135 H 275 H 172 H Lactic Acid Calcium AST Alkaline Phosphatase Albumin Urine WBC (Auto) 02/11/17 02/12/17 02/12/17 23:59 05:39 11:33 WBC RBC Hgb Hct MCV MCH RDW Plt Count Lymph % (Auto) [place] % (Auto) Eos % (Auto) Seg Neutrophils % Seg Neuts % (Manual) Lymphocytes % (Manual) Seg Neutrophils # Seg Neutrophils # Man Lymphocytes # (Manual) POC ABG pH ABG pH POC ABG pCO2 POC ABG pO2 ABG pO2 ABG HCO3 ABG Base Excess ABG Hemoglobin Oxyhemoglobin Sodium Potassium Chloride Carbon Dioxide BUN Creatinine Glucose POC Glucose 215 H 261 H 217 H Lactic Acid Calcium AST Alkaline Phosphatase Albumin Urine WBC (Auto) 02/12/17 02/13/17 02/13/17 17:55 00:25 06:46 WBC RBC Hgb Hct MCV MCH RDW Plt Count Lymph % (Auto) [place] % (Auto) Eos % (Auto) Seg Neutrophils % Seg Neuts % (Manual) Lymphocytes % (Manual) Seg Neutrophils # Seg Neutrophils # Man Lymphocytes # (Manual) POC ABG pH ABG pH POC ABG pCO2 POC ABG pO2 ABG pO2 ABG HCO3 ABG Base Excess ABG Hemoglobin Oxyhemoglobin Sodium Potassium Chloride Carbon Dioxide BUN Creatinine Glucose POC Glucose 172 H 207 H 219 H Lactic Acid Calcium AST Alkaline Phosphatase Albumin Urine WBC (Auto) 02/13/17 02/13/17 02/13/17 11:26 17:12 23:44 WBC RBC Hgb Hct MCV MCH RDW Plt Count Lymph % (Auto) [place] % (Auto) Eos % (Auto) Seg Neutrophils % Seg Neuts % (Manual) Lymphocytes % (Manual) Seg Neutrophils # Seg Neutrophils # Man Lymphocytes # (Manual) POC ABG pH ABG pH POC ABG pCO2 POC ABG pO2 ABG pO2 ABG HCO3 ABG Base Excess ABG Hemoglobin Oxyhemoglobin Sodium Potassium Chloride Carbon Dioxide BUN Creatinine Glucose POC Glucose 231 H 190 H 256 H Lactic Acid Calcium AST Alkaline Phosphatase Albumin Urine WBC (Auto) 02/14/17 02/14/17 02/14/17 05:44 12:21 17:57 WBC RBC Hgb Hct MCV MCH RDW Plt Count Lymph % (Auto) [place] % (Auto) Eos % (Auto) Seg Neutrophils % Seg Neuts % (Manual) Lymphocytes % (Manual) Seg Neutrophils # Seg Neutrophils # Man Lymphocytes # (Manual) POC ABG pH ABG pH POC ABG pCO2 POC ABG pO2 ABG pO2 ABG HCO3 ABG Base Excess ABG Hemoglobin Oxyhemoglobin Sodium Potassium Chloride Carbon Dioxide BUN Creatinine Glucose POC Glucose 184 H 233 H 155 H Lactic Acid Calcium AST Alkaline Phosphatase Albumin Urine WBC (Auto) 02/14/17 02/15/17 02/15/17 23:18 05:33 11:45 WBC RBC Hgb Hct MCV MCH RDW Plt Count Lymph % (Auto) [place] % (Auto) Eos % (Auto) Seg Neutrophils % Seg Neuts % (Manual) Lymphocytes % (Manual) Seg Neutrophils # Seg Neutrophils # Man Lymphocytes # (Manual) POC ABG pH ABG pH POC ABG pCO2 POC ABG pO2 ABG pO2 ABG HCO3 ABG Base Excess ABG Hemoglobin Oxyhemoglobin Sodium Potassium Chloride Carbon Dioxide BUN Creatinine Glucose POC Glucose 165 H 239 H 130 H Lactic Acid Calcium AST Alkaline Phosphatase Albumin Urine WBC (Auto) 02/15/17 02/16/17 02/16/17 17:20 00:14 05:09 WBC RBC Hgb Hct MCV MCH RDW Plt Count Lymph % (Auto) [place] % (Auto) Eos % (Auto) Seg Neutrophils % Seg Neuts % (Manual) Lymphocytes % (Manual) Seg Neutrophils # Seg Neutrophils # Man Lymphocytes # (Manual) POC ABG pH ABG pH POC ABG pCO2 POC ABG pO2 ABG pO2 ABG HCO3 ABG Base Excess ABG Hemoglobin Oxyhemoglobin Sodium Potassium Chloride Carbon Dioxide BUN Creatinine Glucose POC Glucose 189 H 197 H 226 H Lactic Acid Calcium AST Alkaline Phosphatase Albumin Urine WBC (Auto) 02/16/17 02/16/17 02/16/17 12:31 16:35 23:49 WBC RBC Hgb Hct MCV MCH RDW Plt Count Lymph % (Auto) [place] % (Auto) Eos % (Auto) Seg Neutrophils % Seg Neuts % (Manual) Lymphocytes % (Manual) Seg Neutrophils # Seg Neutrophils # Man Lymphocytes # (Manual) POC ABG pH ABG pH POC ABG pCO2 POC ABG pO2 ABG pO2 ABG HCO3 ABG Base Excess ABG Hemoglobin Oxyhemoglobin Sodium Potassium Chloride Carbon Dioxide BUN Creatinine Glucose POC Glucose 178 H 174 H 62 L Lactic Acid Calcium AST Alkaline Phosphatase Albumin Urine WBC (Auto) 02/17/17 02/17/17 02/17/17 05:37 11:39 17:02 WBC RBC Hgb Hct MCV MCH RDW Plt Count Lymph % (Auto) [place] % (Auto) Eos % (Auto) Seg Neutrophils % Seg Neuts % (Manual) Lymphocytes % (Manual) Seg Neutrophils # Seg Neutrophils # Man Lymphocytes # (Manual) POC ABG pH ABG pH POC ABG pCO2 POC ABG pO2 ABG pO2 ABG HCO3 ABG Base Excess ABG Hemoglobin Oxyhemoglobin Sodium Potassium Chloride Carbon Dioxide BUN Creatinine Glucose POC Glucose 153 H 231 H 112 H Lactic Acid Calcium AST Alkaline Phosphatase Albumin Urine WBC (Auto) 02/17/17 02/18/17 02/19/17 22:24 15:34 05:09 WBC RBC Hgb Hct MCV MCH RDW Plt Count Lymph % (Auto) [place] % (Auto) Eos % (Auto) Seg Neutrophils % Seg Neuts % (Manual) Lymphocytes % (Manual) Seg Neutrophils # Seg Neutrophils # Man Lymphocytes # (Manual) POC ABG pH ABG pH POC ABG pCO2 POC ABG pO2 ABG pO2 ABG HCO3 ABG Base Excess ABG Hemoglobin Oxyhemoglobin Sodium Potassium Chloride Carbon Dioxide BUN Creatinine Glucose POC Glucose 116 H 215 H 218 H Lactic Acid Calcium AST Alkaline Phosphatase Albumin Urine WBC (Auto) 02/19/17 02/19/17 02/19/17 07:57 14:49 22:10 WBC RBC Hgb Hct MCV MCH RDW Plt Count Lymph % (Auto) [place] % (Auto) Eos % (Auto) Seg Neutrophils % Seg Neuts % (Manual) Lymphocytes % (Manual) Seg Neutrophils # Seg Neutrophils # Man Lymphocytes # (Manual) POC ABG pH ABG pH POC ABG pCO2 POC ABG pO2 ABG pO2 ABG HCO3 ABG Base Excess ABG Hemoglobin Oxyhemoglobin Sodium Potassium Chloride Carbon Dioxide BUN Creatinine Glucose POC Glucose 283 H 290 H 169 H Lactic Acid Calcium AST Alkaline Phosphatase Albumin Urine WBC (Auto) 02/20/17 05:10 WBC RBC Hgb Hct MCV MCH RDW Plt Count Lymph % (Auto) [place] % (Auto) Eos % (Auto) Seg Neutrophils % Seg Neuts % (Manual) Lymphocytes % (Manual) Seg Neutrophils # Seg Neutrophils # Man Lymphocytes # (Manual) POC ABG pH ABG pH POC ABG pCO2 POC ABG pO2 ABG pO2 ABG HCO3 ABG Base Excess ABG Hemoglobin Oxyhemoglobin Sodium Potassium Chloride Carbon Dioxide BUN Creatinine Glucose POC Glucose 209 H Lactic Acid Calcium AST Alkaline Phosphatase Albumin Urine WBC (Auto)
[2017-02-21] MEDS: SYNTHROID PO SCH (05:24)
[2017-02-21] MEDS: NOVOLOG SUB-Q SCH ×3 (05:24→22:19)
--- NOTE | 2017-02-21 08:50 | Progress Note ---
Assessment and Plan Acute respiratory failure, hypoxia. Fever. Noted sporadically. None this morning. Hypoglycemia/hypothermia - Metabolic encephalopathy. Severe. Poor EEG response/tracing, per neurology. Prolonged vegetative state Hypothyroidism; doubt myxedema coma UTI/SIRS Recommendations Monitor fever Currently the patient is DO NOT RESUSCITATE. Waiting for final decision from court order regarding current support versus termination of care Again, no family or contacts for case discussion We are refraining from initial blood gases or blood sampling in view of poor prognosis status, DO NOT RESUSCITATE Poor prognosis; complex patient Critical care time with a 31 minutes of [id number] evaluation and coordination of care Subjective Date of service: 02/21/17 Principal diagnosis: Acute respiratory failure,encephalopathy Interval history: Intubated. off sedation. Nonresponsive Objective Vital Signs - 12hr 02/20/17 02/20/17 02/20/17 22:00 22:01 22:45 Temperature Pulse Rate 71 73 71 Respiratory 15 Rate Blood Pressure 149/83 149/83 O2 Sat by Pulse 100 Oximetry 02/20/17 02/21/17 02/21/17 23:38 00:00 00:06 Temperature 98.6 F Pulse Rate 69 67 Respiratory 17 Rate Blood Pressure 136/84 136/84 O2 Sat by Pulse 100 100 Oximetry 02/21/17 02/21/17 02/21/17 02:01 04:01 04:11 Temperature 99.1 F Pulse Rate 71 69 Respiratory 14 12 Rate Blood Pressure 136/84 136/84 O2 Sat by Pulse 100 100 Oximetry 02/21/17 02/21/17 02/21/17 04:36 07:52 08:13 Temperature 98.4 F Pulse Rate 68 69 Respiratory 18 Rate Blood Pressure 136/84 127/85 O2 Sat by Pulse 100 100 Oximetry Constitutional: comatose, other (orally intubated, on vent support) Eyes: non-icteric ENT: oropharynx moist Neck: supple Effort: normal Ascultation: Bilateral: clear Cardiovascular: regular rate and rhythm Gastrointestinal: normoactive bowel sounds, soft, non-tender, non-distended Integumentary: normal Extremities: no cyanosis, no edema, pink and warm Neurologic: other (unresponsive except for nonfocal response to pain stimulation ) Psychiatric: other (unable to obtain) CBC and BMP: 02/09/17 07:24 02/09/17 07:24 ABG, PT/INR, D-dimer: ABG POC ABG pH 7.442 (7.35-7.45) 01/31/17 18:55 ABG pH 7.420 pH Units (7.350-7.450) 01/17/17 04:35 POC ABG pCO2 32.8 (35-45) L 01/31/17 18:55 ABG pCO2 34.5 mm Hg 01/17/17 04:35 POC ABG pO2 82 (80-105) 01/31/17 18:55 ABG pO2 160.3 mm Hg (80.0-90.0) H 01/17/17 04:35 POC ABG HCO3 22.4 01/31/17 18:55 POC ABG Total CO2 23 01/31/17 18:55 POC ABG O2 Sat 97 01/31/17 18:55 ABG O2 Saturation 99.0 % (95.0-99.0) 01/17/17 04:35 PT/INR, D-dimer PT 14.1 Sec. (12.2-14.9) 01/17/17 04:10 INR 1.04 (0.87-1.13) 01/17/17 04:10 Abnormal lab findings: Abnormal Labs 01/09/17 01/09/17 01/09/17 12:49 13:13 14:21 WBC RBC Hgb Hct MCV MCH RDW Plt Count Lymph % (Auto) [place] % (Auto) Eos % (Auto) Seg Neutrophils % Seg Neuts % (Manual) Lymphocytes % (Manual) Seg Neutrophils # Seg Neutrophils # Man Lymphocytes # (Manual) POC ABG pH ABG pH POC ABG pCO2 POC ABG pO2 ABG pO2 ABG HCO3 ABG Base Excess ABG Hemoglobin Oxyhemoglobin Sodium Potassium Chloride Carbon Dioxide BUN Creatinine Glucose POC Glucose < 40 L 128 H 65 L Lactic Acid Calcium AST Alkaline Phosphatase Albumin Urine WBC (Auto) 01/09/17 01/09/17 01/09/17 15:09 16:28 17:14 WBC RBC Hgb Hct MCV MCH RDW Plt Count Lymph % (Auto) [place] % (Auto) Eos % (Auto) Seg Neutrophils % Seg Neuts % (Manual) Lymphocytes % (Manual) Seg Neutrophils # Seg Neutrophils # Man Lymphocytes # (Manual) POC ABG pH ABG pH POC ABG pCO2 POC ABG pO2 ABG pO2 ABG HCO3 ABG Base Excess ABG Hemoglobin Oxyhemoglobin Sodium Potassium Chloride Carbon Dioxide BUN Creatinine Glucose POC Glucose 120 H 44 L 112 H Lactic Acid Calcium AST Alkaline Phosphatase Albumin Urine WBC (Auto) 01/10/17 01/10/17 01/10/17 04:30 04:30 05:41 WBC 24.1 H RBC 3.38 L Hgb 8.5 L Hct 26.0 L MCV 77 L MCH 25 L RDW 17.9 H Plt Count 474 H Lymph % (Auto) [place] % (Auto) Eos % (Auto) Seg Neutrophils % Seg Neuts % (Manual) 88.0 H Lymphocytes % (Manual) 4.0 L Seg Neutrophils # Seg Neutrophils # Man 21.2 H Lymphocytes # (Manual) 1.0 L POC ABG pH ABG pH POC ABG pCO2 POC ABG pO2 ABG pO2 ABG HCO3 ABG Base Excess ABG Hemoglobin Oxyhemoglobin Sodium Potassium Chloride Carbon Dioxide 17 L BUN 27 H Creatinine Glucose POC Glucose 68 L Lactic Acid Calcium 7.5 L AST Alkaline Phosphatase Albumin Urine WBC (Auto) 01/10/17 01/10/17 01/10/17 05:45 07:47 10:50 WBC RBC Hgb Hct MCV MCH RDW Plt Count Lymph % (Auto) [place] % (Auto) Eos % (Auto) Seg Neutrophils % Seg Neuts % (Manual) Lymphocytes % (Manual) Seg Neutrophils # Seg Neutrophils # Man Lymphocytes # (Manual) POC ABG pH ABG pH POC ABG pCO2 26.6 L POC ABG pO2 207 H ABG pO2 ABG HCO3 ABG Base Excess ABG Hemoglobin Oxyhemoglobin Sodium Potassium Chloride Carbon Dioxide BUN Creatinine Glucose POC Glucose 148 H 165 H Lactic Acid Calcium AST Alkaline Phosphatase Albumin Urine WBC (Auto) 01/10/17 01/10/17 01/10/17 13:41 20:20 21:39 WBC RBC Hgb Hct MCV MCH RDW Plt Count Lymph % (Auto) [place] % (Auto) Eos % (Auto) Seg Neutrophils % Seg Neuts % (Manual) Lymphocytes % (Manual) Seg Neutrophils # Seg Neutrophils # Man Lymphocytes # (Manual) POC ABG pH ABG pH POC ABG pCO2 POC ABG pO2 ABG pO2 ABG HCO3 ABG Base Excess ABG Hemoglobin Oxyhemoglobin Sodium Potassium Chloride Carbon Dioxide BUN Creatinine Glucose POC Glucose 114 H 150 H 175 H Lactic Acid Calcium AST Alkaline Phosphatase Albumin Urine WBC (Auto) 01/10/17 01/11/1701/11/17 23:24 00:19 04:06 WBC RBC Hgb Hct MCV MCH RDW Plt Count Lymph % (Auto) [place] % (Auto) Eos % (Auto) Seg Neutrophils % Seg Neuts % (Manual) Lymphocytes % (Manual) Seg Neutrophils # Seg Neutrophils # Man Lymphocytes # (Manual) POC ABG pH 7.463 H ABG pH POC ABG pCO2 26.2 L POC ABG pO2 185 H ABG pO2 ABG HCO3 ABG Base Excess ABG Hemoglobin Oxyhemoglobin Sodium Potassium Chloride Carbon Dioxide BUN Creatinine Glucose POC Glucose 155 H 163 H Lactic Acid Calcium AST Alkaline Phosphatase Albumin Urine WBC (Auto) 01/11/17 01/11/17 01/11/17 05:20 05:20 06:21 WBC 15.2 H RBC 3.40 L Hgb 8.9 L Hct 26.3 L MCV 78 L MCH 26 L RDW 18.6 H Plt Count 462 H Lymph % (Auto) 13.2 L [place] % (Auto) Eos % (Auto) Seg Neutrophils % 80.8 H Seg Neuts % (Manual) Lymphocytes % (Manual) Seg Neutrophils # 12.3 H Seg Neutrophils # Man Lymphocytes # (Manual) POC ABG pH ABG pH POC ABG pCO2 POC ABG pO2 ABG pO2 ABG HCO3 ABG Base Excess ABG Hemoglobin Oxyhemoglobin Sodium Potassium 3.4 L Chloride 111.5 H Carbon Dioxide 17 L BUN Creatinine Glucose 147 H POC Glucose 139 H Lactic Acid Calcium 8.0 L AST Alkaline Phosphatase Albumin Urine WBC (Auto) 01/11/17 01/11/17 01/11/17 07:57 11:46 16:50 WBC RBC Hgb Hct MCV MCH RDW Plt Count Lymph % (Auto) [place] % (Auto) Eos % (Auto) Seg Neutrophils % Seg Neuts % (Manual) Lymphocytes % (Manual) Seg Neutrophils # Seg Neutrophils # Man Lymphocytes # (Manual) POC ABG pH ABG pH POC ABG pCO2 POC ABG pO2 ABG pO2 ABG HCO3 ABG Base Excess ABG Hemoglobin Oxyhemoglobin Sodium Potassium Chloride Carbon Dioxide BUN Creatinine Glucose POC Glucose 188 H 199 H 235 H Lactic Acid Calcium AST Alkaline Phosphatase Albumin Urine WBC (Auto) 01/11/17 01/12/17 01/12/17 23:15 05:02 06:56 WBC RBC Hgb Hct MCV MCH RDW Plt Count Lymph % (Auto) [place] % (Auto) Eos % (Auto) Seg Neutrophils % Seg Neuts % (Manual) Lymphocytes % (Manual) Seg Neutrophils # Seg Neutrophils # Man Lymphocytes # (Manual) POC ABG pH ABG pH POC ABG pCO2 28.0 L POC ABG pO2 178 H ABG pO2 ABG HCO3 ABG Base Excess ABG Hemoglobin Oxyhemoglobin Sodium Potassium Chloride Carbon Dioxide BUN Creatinine Glucose POC Glucose 155 H 119 H Lactic Acid Calcium AST Alkaline Phosphatase Albumin Urine WBC (Auto) 01/12/17 01/13/17 01/13/17 14:50 03:37 03:37 WBC RBC 3.61 L Hgb 9.3 L Hct 28.0 L MCV 78 L MCH 26 L RDW 18.2 H Plt Count Lymph % (Auto) [place] % (Auto) Eos % (Auto) Seg Neutrophils % Seg Neuts % (Manual) Lymphocytes % (Manual) Seg Neutrophils # Seg Neutrophils # Man Lymphocytes # (Manual) POC ABG pH ABG pH POC ABG pCO2 POC ABG pO2 ABG pO2 ABG HCO3 ABG Base Excess ABG Hemoglobin Oxyhemoglobin Sodium Potassium Chloride 112.4 H Carbon Dioxide 19 L BUN Creatinine Glucose 118 H POC Glucose 164 H Lactic Acid Calcium 8.0 L AST Alkaline Phosphatase Albumin Urine WBC (Auto) 01/13/17 01/13/17 01/13/17 04:26 06:15 11:50 WBC RBC Hgb Hct MCV MCH RDW Plt Count Lymph % (Auto) [place] % (Auto) Eos % (Auto) Seg Neutrophils % Seg Neuts % (Manual) Lymphocytes % (Manual) Seg Neutrophils # Seg Neutrophils # Man Lymphocytes # (Manual) POC ABG pH 7.485 H ABG pH POC ABG pCO2 25.4 L POC ABG pO2 73 L ABG pO2 ABG HCO3 ABG Base Excess ABG Hemoglobin Oxyhemoglobin Sodium Potassium Chloride Carbon Dioxide BUN Creatinine Glucose POC Glucose 116 H 171 H Lactic Acid Calcium AST Alkaline Phosphatase Albumin Urine WBC (Auto) 01/13/17 01/14/17 01/14/17 17:31 00:02 04:50 WBC RBC 3.32 L Hgb 8.5 L Hct 26.1 L MCV 79 L MCH 26 L RDW 18.2 H Plt Count Lymph % (Auto) [place] % (Auto) 9.0 H Eos % (Auto) Seg Neutrophils % Seg Neuts % (Manual) Lymphocytes % (Manual) Seg Neutrophils # Seg Neutrophils # Man Lymphocytes # (Manual) POC ABG pH ABG pH POC ABG pCO2 POC ABG pO2 ABG pO2 ABG HCO3 ABG Base Excess ABG Hemoglobin Oxyhemoglobin Sodium Potassium Chloride Carbon Dioxide BUN Creatinine Glucose POC Glucose 203 H 157 H Lactic Acid Calcium AST Alkaline Phosphatase Albumin Urine WBC (Auto) 01/14/17 01/14/17 01/14/17 04:50 05:10 11:27 WBC RBC Hgb Hct MCV MCH RDW Plt Count Lymph % (Auto) [place] % (Auto) Eos % (Auto) Seg Neutrophils % Seg Neuts % (Manual) Lymphocytes % (Manual) Seg Neutrophils # Seg Neutrophils # Man Lymphocytes # (Manual) POC ABG pH ABG pH POC ABG pCO2 POC ABG pO2 ABG pO2 ABG HCO3 ABG Base Excess ABG Hemoglobin Oxyhemoglobin Sodium Potassium Chloride 112.5 H Carbon Dioxide BUN Creatinine Glucose 149 H POC Glucose 176 H 147 H Lactic Acid Calcium 8.1 L AST Alkaline Phosphatase Albumin Urine WBC (Auto) 01/14/17 01/14/17 01/15/17 14:07 16:52 00:04 WBC RBC Hgb Hct MCV MCH RDW Plt Count Lymph % (Auto) [place] % (Auto) Eos % (Auto) Seg Neutrophils % Seg Neuts % (Manual) Lymphocytes % (Manual) Seg Neutrophils # Seg Neutrophils # Man Lymphocytes # (Manual) POC ABG pH ABG pH POC ABG pCO2 POC ABG pO2 ABG pO2 ABG HCO3 ABG Base Excess ABG Hemoglobin Oxyhemoglobin Sodium Potassium Chloride Carbon Dioxide BUN Creatinine Glucose POC Glucose 131 H 193 H Lactic Acid Calcium AST Alkaline Phosphatase Albumin Urine WBC (Auto) 53.0 H 01/15/17 01/15/17 01/15/17 05:26 11:49 17:47 WBC RBC Hgb Hct MCV MCH RDW Plt Count Lymph % (Auto) [place] % (Auto) Eos % (Auto) Seg Neutrophils % Seg Neuts % (Manual) Lymphocytes % (Manual) Seg Neutrophils # Seg Neutrophils # Man Lymphocytes # (Manual) POC ABG pH ABG pH POC ABG pCO2 POC ABG pO2 ABG pO2 ABG HCO3 ABG Base Excess ABG Hemoglobin Oxyhemoglobin Sodium Potassium Chloride Carbon Dioxide BUN Creatinine Glucose POC Glucose 215 H 121 H 211 H Lactic Acid Calcium AST Alkaline Phosphatase Albumin Urine WBC (Auto) 01/15/17 01/16/17 01/16/17 21:33 04:30 05:28 WBC RBC Hgb Hct MCV MCH RDW Plt Count Lymph % (Auto) [place] % (Auto) Eos % (Auto) Seg Neutrophils % Seg Neuts % (Manual) Lymphocytes % (Manual) Seg Neutrophils # Seg Neutrophils # Man Lymphocytes # (Manual) POC ABG pH ABG pH 7.457 H POC ABG pCO2 POC ABG pO2 ABG pO2 55.1 L ABG HCO3 19.4 L ABG Base Excess -4.0 L ABG Hemoglobin 6.8 L Oxyhemoglobin 94.9 L Sodium Potassium Chloride Carbon Dioxide BUN Creatinine Glucose POC Glucose 275 H 271 H Lactic Acid Calcium AST Alkaline Phosphatase Albumin Urine WBC (Auto) 01/16/17 01/16/17 01/17/17 13:45 21:39 04:10 WBC 4.4 L RBC 2.98 L Hgb 7.7 L Hct 23.3 L MCV 78 L MCH 26 L RDW 18.1 H Plt Count Lymph % (Auto) [place] % (Auto) Eos % (Auto) Seg Neutrophils % Seg Neuts % (Manual) Lymphocytes % (Manual) Seg Neutrophils # Seg Neutrophils # Man Lymphocytes # (Manual) POC ABG pH ABG pH POC ABG pCO2 POC ABG pO2 ABG pO2 ABG HCO3 ABG Base Excess ABG Hemoglobin Oxyhemoglobin Sodium Potassium Chloride Carbon Dioxide BUN Creatinine Glucose POC Glucose 236 H 258 H Lactic Acid Calcium AST Alkaline Phosphatase Albumin Urine WBC (Auto) 01/17/17 01/17/17 01/17/17 04:10 04:35 12:23 WBC RBC Hgb Hct MCV MCH RDW Plt Count Lymph % (Auto) [place] % (Auto) Eos % (Auto) Seg Neutrophils % Seg Neuts % (Manual) Lymphocytes % (Manual) Seg Neutrophils # Seg Neutrophils # Man Lymphocytes # (Manual) POC ABG pH ABG pH POC ABG pCO2 POC ABG pO2 ABG pO2 160.3 H ABG HCO3 ABG Base Excess -2.3 L ABG Hemoglobin 7.9 L Oxyhemoglobin Sodium Potassium 3.3 L Chloride 108.7 H Carbon Dioxide 20 L BUN 8 L Creatinine Glucose 202 H POC Glucose 321 H Lactic Acid Calcium 7.6 L AST Alkaline Phosphatase Albumin Urine WBC (Auto) 01/17/17 01/18/17 01/18/17 16:01 05:07 12:09 WBC RBC Hgb Hct MCV MCH RDW Plt Count Lymph % (Auto) [place] % (Auto) Eos % (Auto) Seg Neutrophils % Seg Neuts % (Manual) Lymphocytes % (Manual) Seg Neutrophils # Seg Neutrophils # Man Lymphocytes # (Manual) POC ABG pH ABG pH POC ABG pCO2 POC ABG pO2 ABG pO2 ABG HCO3 ABG Base Excess ABG Hemoglobin Oxyhemoglobin Sodium Potassium Chloride Carbon Dioxide BUN Creatinine Glucose POC Glucose 239 H 155 H 203 H Lactic Acid Calcium AST Alkaline Phosphatase Albumin Urine WBC (Auto) 01/18/17 01/18/17 01/19/17 17:54 23:43 04:28 WBC RBC Hgb Hct MCV MCH RDW Plt Count Lymph % (Auto) [place] % (Auto) Eos % (Auto) Seg Neutrophils % Seg Neuts % (Manual) Lymphocytes % (Manual) Seg Neutrophils # Seg Neutrophils # Man Lymphocytes # (Manual) POC ABG pH ABG pH POC ABG pCO2 POC ABG pO2 ABG pO2 ABG HCO3 ABG Base Excess ABG Hemoglobin Oxyhemoglobin Sodium Potassium Chloride Carbon Dioxide BUN Creatinine Glucose POC Glucose 132 H 125 H 182 H Lactic Acid Calcium AST Alkaline Phosphatase Albumin Urine WBC (Auto) 01/19/17 01/19/17 01/20/17 12:11 17:23 00:12 WBC RBC Hgb Hct MCV MCH RDW Plt Count Lymph % (Auto) [place] % (Auto) Eos % (Auto) Seg Neutrophils % Seg Neuts % (Manual) Lymphocytes % (Manual) Seg Neutrophils # Seg Neutrophils # Man Lymphocytes # (Manual) POC ABG pH ABG pH POC ABG pCO2 POC ABG pO2 ABG pO2 ABG HCO3 ABG Base Excess ABG Hemoglobin Oxyhemoglobin Sodium Potassium Chloride Carbon Dioxide BUN Creatinine Glucose POC Glucose 153 H 66 L 139 H Lactic Acid Calcium AST Alkaline Phosphatase Albumin Urine WBC (Auto) 01/20/17 01/20/17 01/20/17 05:44 11:48 17:42 WBC RBC Hgb Hct MCV MCH RDW Plt Count Lymph % (Auto) [place] % (Auto) Eos % (Auto) Seg Neutrophils % Seg Neuts % (Manual) Lymphocytes % (Manual) Seg Neutrophils # Seg Neutrophils # Man Lymphocytes # (Manual) POC ABG pH ABG pH POC ABG pCO2 POC ABG pO2 ABG pO2 ABG HCO3 ABG Base Excess ABG Hemoglobin Oxyhemoglobin Sodium Potassium Chloride Carbon Dioxide BUN Creatinine Glucose POC Glucose 176 H 218 H 132 H Lactic Acid Calcium AST Alkaline Phosphatase Albumin Urine WBC (Auto) 01/20/17 01/21/17 01/21/17 23:43 05:34 11:17 WBC RBC Hgb Hct MCV MCH RDW Plt Count Lymph % (Auto) [place] % (Auto) Eos % (Auto) Seg Neutrophils % Seg Neuts % (Manual) Lymphocytes % (Manual) Seg Neutrophils # Seg Neutrophils # Man Lymphocytes # (Manual) POC ABG pH ABG pH POC ABG pCO2 POC ABG pO2 ABG pO2 ABG HCO3 ABG Base Excess ABG Hemoglobin Oxyhemoglobin Sodium Potassium Chloride Carbon Dioxide BUN Creatinine Glucose POC Glucose 178 H 106 H 213 H Lactic Acid Calcium AST Alkaline Phosphatase Albumin Urine WBC (Auto) 01/21/17 01/22/17 01/22/17 23:37 04:00 04:00 WBC RBC 3.26 L Hgb 8.3 L Hct 25.5 L MCV 78 L MCH 25 L RDW 17.9 H Plt Count Lymph % (Auto) [place] % (Auto) 7.9 H Eos % (Auto) 6.2 H Seg Neutrophils % Seg Neuts % (Manual) Lymphocytes % (Manual) Seg Neutrophils # Seg Neutrophils # Man Lymphocytes # (Manual) POC ABG pH ABG pH POC ABG pCO2 POC ABG pO2 ABG pO2 ABG HCO3 ABG Base Excess ABG Hemoglobin Oxyhemoglobin Sodium Potassium Chloride 95.5 L Carbon Dioxide 31 H D BUN Creatinine Glucose 134 H POC Glucose 140 H Lactic Acid Calcium AST 44 H Alkaline Phosphatase 379 H Albumin 2.7 L Urine WBC (Auto) 01/22/17 01/22/17 01/22/17 04:58 12:12 18:12 WBC RBC Hgb Hct MCV MCH RDW Plt Count Lymph % (Auto) [place] % (Auto) Eos % (Auto) Seg Neutrophils % Seg Neuts % (Manual) Lymphocytes % (Manual) Seg Neutrophils # Seg Neutrophils # Man Lymphocytes # (Manual) POC ABG pH ABG pH POC ABG pCO2 POC ABG pO2 ABG pO2 ABG HCO3 ABG Base Excess ABG Hemoglobin Oxyhemoglobin Sodium Potassium Chloride Carbon Dioxide BUN Creatinine Glucose POC Glucose 146 H 255 H 182 H Lactic Acid Calcium AST Alkaline Phosphatase Albumin Urine WBC (Auto) 01/22/17 01/23/17 01/23/17 23:39 04:43 12:12 WBC RBC Hgb Hct MCV MCH RDW Plt Count Lymph % (Auto) [place] % (Auto) Eos % (Auto) Seg Neutrophils % Seg Neuts % (Manual) Lymphocytes % (Manual) Seg Neutrophils # Seg Neutrophils # Man Lymphocytes # (Manual) POC ABG pH ABG pH POC ABG pCO2 POC ABG pO2 ABG pO2 ABG HCO3 ABG Base Excess ABG Hemoglobin Oxyhemoglobin Sodium Potassium Chloride Carbon Dioxide BUN Creatinine Glucose POC Glucose 134 H 218 H 128 H Lactic Acid Calcium AST Alkaline Phosphatase Albumin Urine WBC (Auto) 01/23/17 01/24/17 01/24/17 17:36 00:08 05:16 WBC RBC Hgb Hct MCV MCH RDW Plt Count Lymph % (Auto) [place] % (Auto) Eos % (Auto) Seg Neutrophils % Seg Neuts % (Manual) Lymphocytes % (Manual) Seg Neutrophils # Seg Neutrophils # Man Lymphocytes # (Manual) POC ABG pH ABG pH POC ABG pCO2 POC ABG pO2 ABG pO2 ABG HCO3 ABG Base Excess ABG Hemoglobin Oxyhemoglobin Sodium Potassium Chloride Carbon Dioxide BUN Creatinine Glucose POC Glucose 156 H 129 H 169 H Lactic Acid Calcium AST Alkaline Phosphatase Albumin Urine WBC (Auto) 01/24/17 01/24/17 01/24/17 11:40 17:43 23:23 WBC RBC Hgb Hct MCV MCH RDW Plt Count Lymph % (Auto) [place] % (Auto) Eos % (Auto) Seg Neutrophils % Seg Neuts % (Manual) Lymphocytes % (Manual) Seg Neutrophils # Seg Neutrophils # Man Lymphocytes # (Manual) POC ABG pH ABG pH POC ABG pCO2 POC ABG pO2 ABG pO2 ABG HCO3 ABG Base Excess ABG Hemoglobin Oxyhemoglobin Sodium Potassium Chloride Carbon Dioxide BUN Creatinine Glucose POC Glucose 187 H 215 H 222 H Lactic Acid Calcium AST Alkaline Phosphatase Albumin Urine WBC (Auto) 01/25/17 01/25/17 01/25/17 04:56 11:52 17:37 WBC RBC Hgb Hct MCV MCH RDW Plt Count Lymph % (Auto) [place] % (Auto) Eos % (Auto) Seg Neutrophils % Seg Neuts % (Manual) Lymphocytes % (Manual) Seg Neutrophils # Seg Neutrophils # Man Lymphocytes # (Manual) POC ABG pH ABG pH POC ABG pCO2 POC ABG pO2 ABG pO2 ABG HCO3 ABG Base Excess ABG Hemoglobin Oxyhemoglobin Sodium Potassium Chloride Carbon Dioxide BUN Creatinine Glucose POC Glucose 210 H 284 H 218 H Lactic Acid Calcium AST Alkaline Phosphatase Albumin Urine WBC (Auto) 01/26/17 01/26/17 01/26/17 00:02 05:33 12:17 WBC RBC Hgb Hct MCV MCH RDW Plt Count Lymph % (Auto) [place] % (Auto) Eos % (Auto) Seg Neutrophils % Seg Neuts % (Manual) Lymphocytes % (Manual) Seg Neutrophils # Seg Neutrophils # Man Lymphocytes # (Manual) POC ABG pH ABG pH POC ABG pCO2 POC ABG pO2 ABG pO2 ABG HCO3 ABG Base Excess ABG Hemoglobin Oxyhemoglobin Sodium Potassium Chloride Carbon Dioxide BUN Creatinine Glucose POC Glucose 192 H 199 H 227 H Lactic Acid Calcium AST Alkaline Phosphatase Albumin Urine WBC (Auto) 01/26/17 01/26/17 01/27/17 17:50 23:57 05:31 WBC RBC Hgb Hct MCV MCH RDW Plt Count Lymph % (Auto) [place] % (Auto) Eos % (Auto) Seg Neutrophils % Seg Neuts % (Manual) Lymphocytes % (Manual) Seg Neutrophils # Seg Neutrophils # Man Lymphocytes # (Manual) POC ABG pH ABG pH POC ABG pCO2 POC ABG pO2 ABG pO2 ABG HCO3 ABG Base Excess ABG Hemoglobin Oxyhemoglobin Sodium Potassium Chloride Carbon Dioxide BUN Creatinine Glucose POC Glucose 229 H 186 H 285 H Lactic Acid Calcium AST Alkaline Phosphatase Albumin Urine WBC (Auto) 01/27/17 01/27/17 01/27/17 11:42 17:47 23:58 WBC RBC Hgb Hct MCV MCH RDW Plt Count Lymph % (Auto) [place] % (Auto) Eos % (Auto) Seg Neutrophils % Seg Neuts % (Manual) Lymphocytes % (Manual) Seg Neutrophils # Seg Neutrophils # Man Lymphocytes # (Manual) POC ABG pH ABG pH POC ABG pCO2 POC ABG pO2 ABG pO2 ABG HCO3 ABG Base Excess ABG Hemoglobin Oxyhemoglobin Sodium Potassium Chloride Carbon Dioxide BUN Creatinine Glucose POC Glucose 260 H 329 H 225 H Lactic Acid Calcium AST Alkaline Phosphatase Albumin Urine WBC (Auto) 01/27/17 01/27/17 01/28/17 Unknown Unknown 03:44 WBC 12.1 H RBC 3.28 L 3.14 L Hgb 8.5 L 8.2 L Hct 25.5 L 24.1 L MCV 78 L 77 L MCH 26 L 26 L RDW 16.8 H 16.9 H Plt Count 601 H 567 H Lymph % (Auto) [place] % (Auto) Eos % (Auto) Seg Neutrophils % Seg Neuts % (Manual) Lymphocytes % (Manual) Seg Neutrophils # Seg Neutrophils # Man Lymphocytes # (Manual) POC ABG pH ABG pH POC ABG pCO2 POC ABG pO2 ABG pO2 ABG HCO3 ABG Base Excess ABG Hemoglobin Oxyhemoglobin Sodium 128 L Potassium 5.4 H Chloride 87.5 L Carbon Dioxide BUN 44 H Creatinine Glucose 250 H POC Glucose Lactic Acid Calcium AST Alkaline Phosphatase Albumin Urine WBC (Auto) 01/28/17 01/28/17 01/28/17 03:44 11:43 16:47 WBC RBC Hgb Hct MCV MCH RDW Plt Count Lymph % (Auto) [place] % (Auto) Eos % (Auto) Seg Neutrophils % Seg Neuts % (Manual) Lymphocytes % (Manual) Seg Neutrophils # Seg Neutrophils # Man Lymphocytes # (Manual) POC ABG pH ABG pH POC ABG pCO2 POC ABG pO2 ABG pO2 ABG HCO3 ABG Base Excess ABG Hemoglobin Oxyhemoglobin Sodium Potassium Chloride Carbon Dioxide BUN 42 H Creatinine Glucose 128 H POC Glucose 351 H 249 H Lactic Acid Calcium AST Alkaline Phosphatase Albumin Urine WBC (Auto) 01/28/17 01/29/17 01/29/17 17:52 05:25 05:25 WBC 13.6 H RBC 3.25 L Hgb 8.3 L Hct 25.1 L MCV 77 L MCH 26 L RDW 16.8 H Plt Count 514 H Lymph % (Auto) [place] % (Auto) Eos % (Auto) Seg Neutrophils % Seg Neuts % (Manual) Lymphocytes % (Manual) Seg Neutrophils # Seg Neutrophils # Man Lymphocytes # (Manual) POC ABG pH ABG pH POC ABG pCO2 POC ABG pO2 ABG pO2 ABG HCO3 ABG Base Excess ABG Hemoglobin Oxyhemoglobin Sodium Potassium Chloride 97.8 L Carbon Dioxide BUN 34 H Creatinine Glucose 222 H POC Glucose Lactic Acid Calcium AST Alkaline Phosphatase Albumin Urine WBC (Auto) > 182.0 H 01/29/17 01/29/17 01/29/17 09:32 11:56 18:11 WBC RBC Hgb Hct MCV MCH RDW Plt Count Lymph % (Auto) [place] % (Auto) Eos % (Auto) Seg Neutrophils % Seg Neuts % (Manual) Lymphocytes % (Manual) Seg Neutrophils # Seg Neutrophils # Man Lymphocytes # (Manual) POC ABG pH ABG pH POC ABG pCO2 POC ABG pO2 ABG pO2 ABG HCO3 ABG Base Excess ABG Hemoglobin Oxyhemoglobin Sodium Potassium Chloride Carbon Dioxide BUN Creatinine Glucose POC Glucose 261 H 215 H Lactic Acid 2.50 H* Calcium AST Alkaline Phosphatase Albumin Urine WBC (Auto) 01/29/17 01/30/17 01/30/17 23:55 05:31 05:31 WBC 15.2 H RBC 3.09 L Hgb 7.9 L Hct 23.9 L MCV 77 L MCH 26 L RDW 16.9 H Plt Count 569 H Lymph % (Auto) [place] % (Auto) Eos % (Auto) Seg Neutrophils % Seg Neuts % (Manual) Lymphocytes % (Manual) Seg Neutrophils # Seg Neutrophils # Man Lymphocytes # (Manual) POC ABG pH ABG pH POC ABG pCO2 POC ABG pO2 ABG pO2 ABG HCO3 ABG Base Excess ABG Hemoglobin Oxyhemoglobin Sodium Potassium Chloride Carbon Dioxide BUN 24 H Creatinine Glucose 235 H POC Glucose 176 H Lactic Acid Calcium AST Alkaline Phosphatase Albumin Urine WBC (Auto) 01/30/17 01/30/17 01/30/17 05:34 11:38 17:58 WBC RBC Hgb Hct MCV MCH RDW Plt Count Lymph % (Auto) [place] % (Auto) Eos % (Auto) Seg Neutrophils % Seg Neuts % (Manual) Lymphocytes % (Manual) Seg Neutrophils # Seg Neutrophils # Man Lymphocytes # (Manual) POC ABG pH ABG pH POC ABG pCO2 POC ABG pO2 ABG pO2 ABG HCO3 ABG Base Excess ABG Hemoglobin Oxyhemoglobin Sodium Potassium Chloride Carbon Dioxide BUN Creatinine Glucose POC Glucose 243 H 298 H 208 H Lactic Acid Calcium AST Alkaline Phosphatase Albumin Urine WBC (Auto) 01/30/17 01/31/17 01/31/17 23:29 04:39 04:39 WBC 11.4 H RBC 3.22 L Hgb 8.2 L Hct 24.9 L MCV 78 L MCH 25 L RDW 17.2 H Plt Count 576 H Lymph % (Auto) [place] % (Auto) Eos % (Auto) Seg Neutrophils % Seg Neuts % (Manual) Lymphocytes % (Manual) Seg Neutrophils # Seg Neutrophils # Man Lymphocytes # (Manual) POC ABG pH ABG pH POC ABG pCO2 POC ABG pO2 ABG pO2 ABG HCO3 ABG Base Excess ABG Hemoglobin Oxyhemoglobin Sodium Potassium Chloride Carbon Dioxide BUN Creatinine 0.7 L Glucose 223 H POC Glucose 245 H Lactic Acid Calcium AST Alkaline Phosphatase Albumin Urine WBC (Auto) 01/31/17 01/31/17 01/31/17 05:57 12:23 17:41 WBC RBC Hgb Hct MCV MCH RDW Plt Count Lymph % (Auto) [place] % (Auto) Eos % (Auto) Seg Neutrophils % Seg Neuts % (Manual) Lymphocytes % (Manual) Seg Neutrophils # Seg Neutrophils # Man Lymphocytes # (Manual) POC ABG pH ABG pH POC ABG pCO2 POC ABG pO2 ABG pO2 ABG HCO3 ABG Base Excess ABG Hemoglobin Oxyhemoglobin Sodium Potassium Chloride Carbon Dioxide BUN Creatinine Glucose POC Glucose 264 H 252 H 208 H Lactic Acid Calcium AST Alkaline Phosphatase Albumin Urine WBC (Auto) 01/31/17 01/31/17 02/01/17 18:55 22:59 03:38 WBC RBC 2.81 L Hgb 7.4 L Hct 22.1 L MCV 79 L MCH 27 L RDW 17.0 H Plt Count 540 H Lymph % (Auto) [place] % (Auto) Eos % (Auto) Seg Neutrophils % Seg Neuts % (Manual) Lymphocytes % (Manual) Seg Neutrophils # Seg Neutrophils # Man Lymphocytes # (Manual) POC ABG pH ABG pH POC ABG pCO2 32.8 L POC ABG pO2 ABG pO2 ABG HCO3 ABG Base Excess ABG Hemoglobin Oxyhemoglobin Sodium Potassium Chloride Carbon Dioxide BUN Creatinine Glucose POC Glucose 40 L Lactic Acid Calcium AST Alkaline Phosphatase Albumin Urine WBC (Auto) 02/01/17 02/01/17 02/01/17 03:38 05:17 12:19 WBC RBC Hgb Hct MCV MCH RDW Plt Count Lymph % (Auto) [place] % (Auto) Eos % (Auto) Seg Neutrophils % Seg Neuts % (Manual) Lymphocytes % (Manual) Seg Neutrophils # Seg Neutrophils # Man Lymphocytes # (Manual) POC ABG pH ABG pH POC ABG pCO2 POC ABG pO2 ABG pO2 ABG HCO3 ABG Base Excess ABG Hemoglobin Oxyhemoglobin Sodium Potassium Chloride Carbon Dioxide 21 L BUN Creatinine 0.7 L Glucose POC Glucose 140 H 213 H Lactic Acid Calcium AST Alkaline Phosphatase Albumin Urine WBC (Auto) 02/01/17 02/01/17 02/02/17 16:44 23:59 05:14 WBC RBC Hgb Hct MCV MCH RDW Plt Count Lymph % (Auto) [place] % (Auto) Eos % (Auto) Seg Neutrophils % Seg Neuts % (Manual) Lymphocytes % (Manual) Seg Neutrophils # Seg Neutrophils # Man Lymphocytes # (Manual) POC ABG pH ABG pH POC ABG pCO2 POC ABG pO2 ABG pO2 ABG HCO3 ABG Base Excess ABG Hemoglobin Oxyhemoglobin Sodium Potassium Chloride Carbon Dioxide BUN Creatinine Glucose POC Glucose 172 H 181 H 194 H Lactic Acid Calcium AST Alkaline Phosphatase Albumin Urine WBC (Auto) 02/02/17 02/02/17 02/02/17 11:24 11:46 11:46 WBC RBC 2.94 L Hgb 7.5 L Hct 23.0 L MCV 78 L MCH 25 L RDW 16.9 H Plt Count 520 H Lymph % (Auto) [place] % (Auto) Eos % (Auto) Seg Neutrophils % Seg Neuts % (Manual) Lymphocytes % (Manual) Seg Neutrophils # Seg Neutrophils # Man Lymphocytes # (Manual) POC ABG pH ABG pH POC ABG pCO2 POC ABG pO2 ABG pO2 ABG HCO3 ABG Base Excess ABG Hemoglobin Oxyhemoglobin Sodium Potassium Chloride Carbon Dioxide BUN Creatinine 0.6 L Glucose 189 H POC Glucose 209 H Lactic Acid Calcium 8.1 L AST Alkaline Phosphatase Albumin Urine WBC (Auto) 02/02/17 02/02/17 02/03/17 17:47 23:32 05:53 WBC RBC Hgb Hct MCV MCH RDW Plt Count Lymph % (Auto) [place] % (Auto) Eos % (Auto) Seg Neutrophils % Seg Neuts % (Manual) Lymphocytes % (Manual) Seg Neutrophils # Seg Neutrophils # Man Lymphocytes # (Manual) POC ABG pH ABG pH POC ABG pCO2 POC ABG pO2 ABG pO2 ABG HCO3 ABG Base Excess ABG Hemoglobin Oxyhemoglobin Sodium Potassium Chloride Carbon Dioxide BUN Creatinine Glucose POC Glucose 147 H 176 H 224 H Lactic Acid Calcium AST Alkaline Phosphatase Albumin Urine WBC (Auto) 02/03/17 02/03/17 02/03/17 11:19 16:59 23:38 WBC RBC Hgb Hct MCV MCH RDW Plt Count Lymph % (Auto) [place] % (Auto) Eos % (Auto) Seg Neutrophils % Seg Neuts % (Manual) Lymphocytes % (Manual) Seg Neutrophils # Seg Neutrophils # Man Lymphocytes # (Manual) POC ABG pH ABG pH POC ABG pCO2 POC ABG pO2 ABG pO2 ABG HCO3 ABG Base Excess ABG Hemoglobin Oxyhemoglobin Sodium Potassium Chloride Carbon Dioxide BUN Creatinine Glucose POC Glucose 228 H 189 H 191 H Lactic Acid Calcium AST Alkaline Phosphatase Albumin Urine WBC (Auto) 02/04/17 02/04/17 02/04/17 05:45 11:20 17:20 WBC RBC Hgb Hct MCV MCH RDW Plt Count Lymph % (Auto) [place] % (Auto) Eos % (Auto) Seg Neutrophils % Seg Neuts % (Manual) Lymphocytes % (Manual) Seg Neutrophils # Seg Neutrophils # Man Lymphocytes # (Manual) POC ABG pH ABG pH POC ABG pCO2 POC ABG pO2 ABG pO2 ABG HCO3 ABG Base Excess ABG Hemoglobin Oxyhemoglobin Sodium Potassium Chloride Carbon Dioxide BUN Creatinine Glucose POC Glucose 251 H 243 H 163 H Lactic Acid Calcium AST Alkaline Phosphatase Albumin Urine WBC (Auto) 02/05/17 02/05/17 02/05/17 00:17 05:38 12:38 WBC RBC Hgb Hct MCV MCH RDW Plt Count Lymph % (Auto) [place] % (Auto) Eos % (Auto) Seg Neutrophils % Seg Neuts % (Manual) Lymphocytes % (Manual) Seg Neutrophils # Seg Neutrophils # Man Lymphocytes # (Manual) POC ABG pH ABG pH POC ABG pCO2 POC ABG pO2 ABG pO2 ABG HCO3 ABG Base Excess ABG Hemoglobin Oxyhemoglobin Sodium Potassium Chloride Carbon Dioxide BUN Creatinine Glucose POC Glucose 200 H 248 H 241 H Lactic Acid Calcium AST Alkaline Phosphatase Albumin Urine WBC (Auto) 02/05/17 02/05/17 02/06/17 16:29 23:56 05:30 WBC RBC Hgb Hct MCV MCH RDW Plt Count Lymph % (Auto) [place] % (Auto) Eos % (Auto) Seg Neutrophils % Seg Neuts % (Manual) Lymphocytes % (Manual) Seg Neutrophils # Seg Neutrophils # Man Lymphocytes # (Manual) POC ABG pH ABG pH POC ABG pCO2 POC ABG pO2 ABG pO2 ABG HCO3 ABG Base Excess ABG Hemoglobin Oxyhemoglobin Sodium Potassium Chloride Carbon Dioxide BUN Creatinine Glucose POC Glucose 257 H 258 H 120 H Lactic Acid Calcium AST Alkaline Phosphatase Albumin Urine WBC (Auto) 02/06/17 02/06/17 02/06/17 11:50 17:11 23:50 WBC RBC Hgb Hct MCV MCH RDW Plt Count Lymph % (Auto) [place] % (Auto) Eos % (Auto) Seg Neutrophils % Seg Neuts % (Manual) Lymphocytes % (Manual) Seg Neutrophils # Seg Neutrophils # Man Lymphocytes # (Manual) POC ABG pH ABG pH POC ABG pCO2 POC ABG pO2 ABG pO2 ABG HCO3 ABG Base Excess ABG Hemoglobin Oxyhemoglobin Sodium Potassium Chloride Carbon Dioxide BUN Creatinine Glucose POC Glucose 254 H 149 H 240 H Lactic Acid Calcium AST Alkaline Phosphatase Albumin Urine WBC (Auto) 02/07/17 02/07/17 02/07/17 05:22 11:15 18:33 WBC RBC Hgb Hct MCV MCH RDW Plt Count Lymph % (Auto) [place] % (Auto) Eos % (Auto) Seg Neutrophils % Seg Neuts % (Manual) Lymphocytes % (Manual) Seg Neutrophils # Seg Neutrophils # Man Lymphocytes # (Manual) POC ABG pH ABG pH POC ABG pCO2 POC ABG pO2 ABG pO2 ABG HCO3 ABG Base Excess ABG Hemoglobin Oxyhemoglobin Sodium Potassium Chloride Carbon Dioxide BUN Creatinine Glucose POC Glucose 258 H 239 H 176 H Lactic Acid Calcium AST Alkaline Phosphatase Albumin Urine WBC (Auto) 02/07/17 02/08/17 02/08/17 23:59 06:15 11:55 WBC RBC Hgb Hct MCV MCH RDW Plt Count Lymph % (Auto) [place] % (Auto) Eos % (Auto) Seg Neutrophils % Seg Neuts % (Manual) Lymphocytes % (Manual) Seg Neutrophils # Seg Neutrophils # Man Lymphocytes # (Manual) POC ABG pH ABG pH POC ABG pCO2 POC ABG pO2 ABG pO2 ABG HCO3 ABG Base Excess ABG Hemoglobin Oxyhemoglobin Sodium Potassium Chloride Carbon Dioxide BUN Creatinine Glucose POC Glucose 186 H 195 H 129 H Lactic Acid Calcium AST Alkaline Phosphatase Albumin Urine WBC (Auto) 02/08/17 02/08/17 02/09/17 16:55 23:51 05:51 WBC RBC Hgb Hct MCV MCH RDW Plt Count Lymph % (Auto) [place] % (Auto) Eos % (Auto) Seg Neutrophils % Seg Neuts % (Manual) Lymphocytes % (Manual) Seg Neutrophils # Seg Neutrophils # Man Lymphocytes # (Manual) POC ABG pH ABG pH POC ABG pCO2 POC ABG pO2 ABG pO2 ABG HCO3 ABG Base Excess ABG Hemoglobin Oxyhemoglobin Sodium Potassium Chloride Carbon Dioxide BUN Creatinine Glucose POC Glucose 246 H 262 H 295 H Lactic Acid Calcium AST Alkaline Phosphatase Albumin Urine WBC (Auto) 02/09/17 02/09/17 02/09/17 07:24 07:24 12:08 WBC 14.7 H RBC 3.39 L Hgb 8.9 L Hct 26.4 L MCV 78 L MCH 26 L RDW 18.4 H Plt Count 670 H Lymph % (Auto) 11.8 L [place] % (Auto) Eos % (Auto) Seg Neutrophils % 81.2 H Seg Neuts % (Manual) Lymphocytes % (Manual) Seg Neutrophils # 11.9 H Seg Neutrophils # Man Lymphocytes # (Manual) POC ABG pH ABG pH POC ABG pCO2 POC ABG pO2 ABG pO2 ABG HCO3 ABG Base Excess ABG Hemoglobin Oxyhemoglobin Sodium Potassium Chloride 95.5 L Carbon Dioxide BUN 52 H Creatinine Glucose 277 H POC Glucose 236 H Lactic Acid Calcium AST Alkaline Phosphatase Albumin Urine WBC (Auto) 02/09/17 02/10/17 02/10/17 18:39 00:01 05:44 WBC RBC Hgb Hct MCV MCH RDW Plt Count Lymph % (Auto) [place] % (Auto) Eos % (Auto) Seg Neutrophils % Seg Neuts % (Manual) Lymphocytes % (Manual) Seg Neutrophils # Seg Neutrophils # Man Lymphocytes # (Manual) POC ABG pH ABG pH POC ABG pCO2 POC ABG pO2 ABG pO2 ABG HCO3 ABG Base Excess ABG Hemoglobin Oxyhemoglobin Sodium Potassium Chloride Carbon Dioxide BUN Creatinine Glucose POC Glucose 151 H 210 H 201 H Lactic Acid Calcium AST Alkaline Phosphatase Albumin Urine WBC (Auto) 02/10/17 02/10/17 02/10/17 11:21 17:29 23:56 WBC RBC Hgb Hct MCV MCH RDW Plt Count Lymph % (Auto) [place] % (Auto) Eos % (Auto) Seg Neutrophils % Seg Neuts % (Manual) Lymphocytes % (Manual) Seg Neutrophils # Seg Neutrophils # Man Lymphocytes # (Manual) POC ABG pH ABG pH POC ABG pCO2 POC ABG pO2 ABG pO2 ABG HCO3 ABG Base Excess ABG Hemoglobin Oxyhemoglobin Sodium Potassium Chloride Carbon Dioxide BUN Creatinine Glucose POC Glucose 233 H 167 H 191 H Lactic Acid Calcium AST Alkaline Phosphatase Albumin Urine WBC (Auto) 02/11/17 02/11/17 02/11/17 05:24 12:25 17:03 WBC RBC Hgb Hct MCV MCH RDW Plt Count Lymph % (Auto) [place] % (Auto) Eos % (Auto) Seg Neutrophils % Seg Neuts % (Manual) Lymphocytes % (Manual) Seg Neutrophils # Seg Neutrophils # Man Lymphocytes # (Manual) POC ABG pH ABG pH POC ABG pCO2 POC ABG pO2 ABG pO2 ABG HCO3 ABG Base Excess ABG Hemoglobin Oxyhemoglobin Sodium Potassium Chloride Carbon Dioxide BUN Creatinine Glucose POC Glucose 135 H 275 H 172 H Lactic Acid Calcium AST Alkaline Phosphatase Albumin Urine WBC (Auto) 02/11/17 02/12/17 02/12/17 23:59 05:39 11:33 WBC RBC Hgb Hct MCV MCH RDW Plt Count Lymph % (Auto) [place] % (Auto) Eos % (Auto) Seg Neutrophils % Seg Neuts % (Manual) Lymphocytes % (Manual) Seg Neutrophils # Seg Neutrophils # Man Lymphocytes # (Manual) POC ABG pH ABG pH POC ABG pCO2 POC ABG pO2 ABG pO2 ABG HCO3 ABG Base Excess ABG Hemoglobin Oxyhemoglobin Sodium Potassium Chloride Carbon Dioxide BUN Creatinine Glucose POC Glucose 215 H 261 H 217 H Lactic Acid Calcium AST Alkaline Phosphatase Albumin Urine WBC (Auto) 02/12/17 02/13/17 02/13/17 17:55 00:25 06:46 WBC RBC Hgb Hct MCV MCH RDW Plt Count Lymph % (Auto) [place] % (Auto) Eos % (Auto) Seg Neutrophils % Seg Neuts % (Manual) Lymphocytes % (Manual) Seg Neutrophils # Seg Neutrophils # Man Lymphocytes # (Manual) POC ABG pH ABG pH POC ABG pCO2 POC ABG pO2 ABG pO2 ABG HCO3 ABG Base Excess ABG Hemoglobin Oxyhemoglobin Sodium Potassium Chloride Carbon Dioxide BUN Creatinine Glucose POC Glucose 172 H 207 H 219 H Lactic Acid Calcium AST Alkaline Phosphatase Albumin Urine WBC (Auto) 02/13/17 02/13/17 02/13/17 11:26 17:12 23:44 WBC RBC Hgb Hct MCV MCH RDW Plt Count Lymph % (Auto) [place] % (Auto) Eos % (Auto) Seg Neutrophils % Seg Neuts % (Manual) Lymphocytes % (Manual) Seg Neutrophils # Seg Neutrophils # Man Lymphocytes # (Manual) POC ABG pH ABG pH POC ABG pCO2 POC ABG pO2 ABG pO2 ABG HCO3 ABG Base Excess ABG Hemoglobin Oxyhemoglobin Sodium Potassium Chloride Carbon Dioxide BUN Creatinine Glucose POC Glucose 231 H 190 H 256 H Lactic Acid Calcium AST Alkaline Phosphatase Albumin Urine WBC (Auto) 02/14/17 02/14/17 02/14/17 05:44 12:21 17:57 WBC RBC Hgb Hct MCV MCH RDW Plt Count Lymph % (Auto) [place] % (Auto) Eos % (Auto) Seg Neutrophils % Seg Neuts % (Manual) Lymphocytes % (Manual) Seg Neutrophils # Seg Neutrophils # Man Lymphocytes # (Manual) POC ABG pH ABG pH POC ABG pCO2 POC ABG pO2 ABG pO2 ABG HCO3 ABG Base Excess ABG Hemoglobin Oxyhemoglobin Sodium Potassium Chloride Carbon Dioxide BUN Creatinine Glucose POC Glucose 184 H 233 H 155 H Lactic Acid Calcium AST Alkaline Phosphatase Albumin Urine WBC (Auto) 02/14/17 02/15/17 02/15/17 23:18 05:33 11:45 WBC RBC Hgb Hct MCV MCH RDW Plt Count Lymph % (Auto) [place] % (Auto) Eos % (Auto) Seg Neutrophils % Seg Neuts % (Manual) Lymphocytes % (Manual) Seg Neutrophils # Seg Neutrophils # Man Lymphocytes # (Manual) POC ABG pH ABG pH POC ABG pCO2 POC ABG pO2 ABG pO2 ABG HCO3 ABG Base Excess ABG Hemoglobin Oxyhemoglobin Sodium Potassium Chloride Carbon Dioxide BUN Creatinine Glucose POC Glucose 165 H 239 H 130 H Lactic Acid Calcium AST Alkaline Phosphatase Albumin Urine WBC (Auto) 02/15/17 02/16/17 02/16/17 17:20 00:14 05:09 WBC RBC Hgb Hct MCV MCH RDW Plt Count Lymph % (Auto) [place] % (Auto) Eos % (Auto) Seg Neutrophils % Seg Neuts % (Manual) Lymphocytes % (Manual) Seg Neutrophils # Seg Neutrophils # Man Lymphocytes # (Manual) POC ABG pH ABG pH POC ABG pCO2 POC ABG pO2 ABG pO2 ABG HCO3 ABG Base Excess ABG Hemoglobin Oxyhemoglobin Sodium Potassium Chloride Carbon Dioxide BUN Creatinine Glucose POC Glucose 189 H 197 H 226 H Lactic Acid Calcium AST Alkaline Phosphatase Albumin Urine WBC (Auto) 02/16/17 02/16/17 02/16/17 12:31 16:35 23:49 WBC RBC Hgb Hct MCV MCH RDW Plt Count Lymph % (Auto) [place] % (Auto) Eos % (Auto) Seg Neutrophils % Seg Neuts % (Manual) Lymphocytes % (Manual) Seg Neutrophils # Seg Neutrophils # Man Lymphocytes # (Manual) POC ABG pH ABG pH POC ABG pCO2 POC ABG pO2 ABG pO2 ABG HCO3 ABG Base Excess ABG Hemoglobin Oxyhemoglobin Sodium Potassium Chloride Carbon Dioxide BUN Creatinine Glucose POC Glucose 178 H 174 H 62 L Lactic Acid Calcium AST Alkaline Phosphatase Albumin Urine WBC (Auto) 02/17/17 02/17/17 02/17/17 05:37 11:39 17:02 WBC RBC Hgb Hct MCV MCH RDW Plt Count Lymph % (Auto) [place] % (Auto) Eos % (Auto) Seg Neutrophils % Seg Neuts % (Manual) Lymphocytes % (Manual) Seg Neutrophils # Seg Neutrophils # Man Lymphocytes # (Manual) POC ABG pH ABG pH POC ABG pCO2 POC ABG pO2 ABG pO2 ABG HCO3 ABG Base Excess ABG Hemoglobin Oxyhemoglobin Sodium Potassium Chloride Carbon Dioxide BUN Creatinine Glucose POC Glucose 153 H 231 H 112 H Lactic Acid Calcium AST Alkaline Phosphatase Albumin Urine WBC (Auto) 02/17/17 02/18/17 02/19/17 22:24 15:34 05:09 WBC RBC Hgb Hct MCV MCH RDW Plt Count Lymph % (Auto) [place] % (Auto) Eos % (Auto) Seg Neutrophils % Seg Neuts % (Manual) Lymphocytes % (Manual) Seg Neutrophils # Seg Neutrophils # Man Lymphocytes # (Manual) POC ABG pH ABG pH POC ABG pCO2 POC ABG pO2 ABG pO2 ABG HCO3 ABG Base Excess ABG Hemoglobin Oxyhemoglobin Sodium Potassium Chloride Carbon Dioxide BUN Creatinine Glucose POC Glucose 116 H 215 H 218 H Lactic Acid Calcium AST Alkaline Phosphatase Albumin Urine WBC (Auto) 02/19/17 02/19/17 02/19/17 07:57 14:49 22:10 WBC RBC Hgb Hct MCV MCH RDW Plt Count Lymph % (Auto) [place] % (Auto) Eos % (Auto) Seg Neutrophils % Seg Neuts % (Manual) Lymphocytes % (Manual) Seg Neutrophils # Seg Neutrophils # Man Lymphocytes # (Manual) POC ABG pH ABG pH POC ABG pCO2 POC ABG pO2 ABG pO2 ABG HCO3 ABG Base Excess ABG Hemoglobin Oxyhemoglobin Sodium Potassium Chloride Carbon Dioxide BUN Creatinine Glucose POC Glucose 283 H 290 H 169 H Lactic Acid Calcium AST Alkaline Phosphatase Albumin Urine WBC (Auto) 02/20/17 02/20/17 02/20/17 05:10 15:05 21:52 WBC RBC Hgb Hct MCV MCH RDW Plt Count Lymph % (Auto) [place] % (Auto) Eos % (Auto) Seg Neutrophils % Seg Neuts % (Manual) Lymphocytes % (Manual) Seg Neutrophils # Seg Neutrophils # Man Lymphocytes # (Manual) POC ABG pH ABG pH POC ABG pCO2 POC ABG pO2 ABG pO2 ABG HCO3 ABG Base Excess ABG Hemoglobin Oxyhemoglobin Sodium Potassium Chloride Carbon Dioxide BUN Creatinine Glucose POC Glucose 209 H 172 H 209 H Lactic Acid Calcium AST Alkaline Phosphatase Albumin Urine WBC (Auto) 02/21/17 02/21/17 02:00 04:54 WBC RBC Hgb Hct MCV MCH RDW Plt Count Lymph % (Auto) [place] % (Auto) Eos % (Auto) Seg Neutrophils % Seg Neuts % (Manual) Lymphocytes % (Manual) Seg Neutrophils # Seg Neutrophils # Man Lymphocytes # (Manual) POC ABG pH ABG pH POC ABG pCO2 POC ABG pO2 ABG pO2 ABG HCO3 ABG Base Excess ABG Hemoglobin Oxyhemoglobin Sodium Potassium Chloride Carbon Dioxide BUN Creatinine Glucose POC Glucose 216 H 227 H Lactic Acid Calcium AST Alkaline Phosphatase Albumin Urine WBC (Auto)
[2017-02-21] MEDS: NORMODYNE PO SCH ×2 (09:49→22:15)
[2017-02-21] MEDS: PEPCID PO SCH ×2 (09:49→22:15)
[2017-02-21] MEDS: HEPARIN SUB-Q SCH ×2 (09:50→22:14)
[2017-02-21] MEDS: LEVEMIR (NF) SUB-Q SCH (09:50)
--- NOTE | 2017-02-21 12:22 | Progress Note ---
Assessment and Plan Assessment and plan: --Metabolic encephalopathy /Hypoglycemic brain injury --Acute hypoxic respiratory failure, unable to wean Intubated on ventilatory support very poor prognosis not a candidate for Trach and PEG, --Persistent Vegetative state --Hypothyroidism; continue Synthroid -- Dony Poor prognosis. --DO NOT RESUSCITATE and Comfort Care by ethics committee. -- Awaiting state guardianship Continue comfort care History Interval history: Patient seen and examined Medical records reviewed Clinically no change, critically ill Awaiting guardianship Hospitalist Physical - Constitutional Vitals: Temp Pulse Resp BP Pulse Ox 99.5 F 69 21 158/91 100 02/21/17 08:00 02/21/17 11:25 02/21/17 11:25 02/21/17 11:25 02/21/17 11:25 General appearance: Present: no acute distress, cachectic, disheveled, other ( unresponsive) - EENT Eyes: Present: PERRL, EOM intact - Neck Neck: Present: supple, normal ROM - Respiratory Respiratory effort: normal Respiratory: bilateral: diminished, rhonchi - Cardiovascular Rhythm: regular Heart Sounds: Present: S1 & S2 - Extremities Extremities: no ischemia Extremity abnormal: edema, erythema - Abdominal General gastrointestinal: soft, non-tender, non-distended, normal bowel sounds - Integumentary Integumentary: Present: clear, warm - Psychiatric Psychiatric: appropriate mood/affect, cooperative - Neurologic Neurologic: CNII-XII intact, moves all extremities Results - Labs CBC & Chem 7: 02/09/17 07:24 02/09/17 07:24 Labs: Laboratory Last Values WBC 14.7 K/mm3 (4.5-11.0) H 02/09/17 07:24 RBC 3.39 M/mm3 (3.65-5.03) L 02/09/17 07:24 Hgb 8.9 gm/dl (11.8-15.2) L 02/09/17 07:24 Hct 26.4 % (35.5-45.6) L 02/09/17 07:24 MCV 78 fl (84-94) L 02/09/17 07:24 MCH 26 pg (28-32) L 02/09/17 07:24 MCHC 34 % (32-34) 02/09/17 07:24 RDW 18.4 % (13.2-15.2) H 02/09/17 07:24 Plt Count 670 K/mm3 (140-440) H 02/09/17 07:24 Lymph % (Auto) 11.8 % (13.4-35.0) L 02/09/17 07:24 Rich % (Auto) 4.7 % (0.0-7.3) 02/09/17 07:24 Eos % (Auto) 1.9 % (0.0-4.3) 02/09/17 07:24 Baso % (Auto) 0.4 % (0.0-1.8) 02/09/17 07:24 Lymph # 1.7 K/mm3 (1.2-5.4) 02/09/17 07:24 Rich # 0.7 K/mm3 (0.0-0.8) 02/09/17 07:24 Eos # 0.3 K/mm3 (0.0-0.4) 02/09/17 07:24 Baso # 0.1 K/mm3 (0.0-0.1) 02/09/17 07:24 Add Manual Diff Complete 01/10/17 04:30 Total Counted 100 01/10/17 04:30 Seg Neutrophils % 81.2 % (40.0-70.0) H 02/09/17 07:24 Seg Neuts % (Manual) 88.0 % (40.0-70.0) H 01/10/17 04:30 Band Neutrophils % 7.0 % 01/10/17 04:30 Lymphocytes % (Manual) 4.0 % (13.4-35.0) L 01/10/17 04:30 Reactive Lymphs % (Man) 0 % 01/10/17 04:30 Monocytes % (Manual) 1.0 % (0.0-7.3) 01/10/17 04:30 Eosinophils % (Manual) 0 % (0.0-4.3) 01/10/17 04:30 Basophils % (Manual) 0 % (0.0-1.8) 01/10/17 04:30 Metamyelocytes % 0 % 01/10/17 04:30 Myelocytes % 0 % 01/10/17 04:30 Promyelocytes % 0 % 01/10/17 04:30 Blast Cells % 0 % 01/10/17 04:30 Nucleated RBC % Not Reportable 01/10/17 04:30 Seg Neutrophils # 11.9 K/mm3 (1.8-7.7) H 02/09/17 07:24 Seg Neutrophils # Man 21.2 K/mm3 (1.8-7.7) H 01/10/17 04:30 Band Neutrophils # 1.7 K/mm3 01/10/17 04:30 Lymphocytes # (Manual) 1.0 K/mm3 (1.2-5.4) L 01/10/17 04:30 Abs React Lymphs (Man) 0.0 K/mm3 01/10/17 04:30 Monocytes # (Manual) 0.2 K/mm3 (0.0-0.8) 01/10/17 04:30 Eosinophils # (Manual) 0.0 K/mm3 (0.0-0.4) 01/10/17 04:30 Basophils # (Manual) 0.0 K/mm3 (0.0-0.1) 01/10/17 04:30 Metamyelocytes # 0.0 K/mm3 01/10/17 04:30 Myelocytes # 0.0 K/mm3 01/10/17 04:30 Promyelocytes # 0.0 K/mm3 01/10/17 04:30 Blast Cells # 0.0 K/mm3 01/10/17 04:30 WBC Morphology Not Reportable 01/10/17 04:30 Hypersegmented Neuts Not Reportable 01/10/17 04:30 Hyposegmented Neuts Not Reportable 01/10/17 04:30 Hypogranular Neuts Not Reportable 01/10/17 04:30 Smudge Cells Not Reportable 01/10/17 04:30 Toxic Granulation Not Reportable 01/10/17 04:30 Toxic Vacuolation Not Reportable 01/10/17 04:30 Dohle Bodies Not Reportable 01/10/17 04:30 Pelger-Huet Anomaly Not Reportable 01/10/17 04:30 [place] Rods Not Reportable 01/10/17 04:30 Platelet Estimate Consistent w auto 01/10/17 04:30 Clumped Platelets Not Reportable 01/10/17 04:30 Plt Clumps, EDTA Not Reportable 01/10/17 04:30 Large Platelets Not Reportable 01/10/17 04:30 Giant Platelets Not Reportable 01/10/17 04:30 Platelet Satelliting Not Reportable 01/10/17 04:30 Plt Morphology Comment Not Reportable 01/10/17 04:30 RBC Morphology Not Reportable 01/10/17 04:30 Dimorphic RBCs Not Reportable 01/10/17 04:30 Polychromasia Not Reportable 01/10/17 04:30 Hypochromasia 1+ 01/10/17 04:30 Poikilocytosis Not Reportable 01/10/17 04:30 Anisocytosis Not Reportable 01/10/17 04:30 Microcytosis Not Reportable 01/10/17 04:30 Macrocytosis Not Reportable 01/10/17 04:30 Spherocytes Not Reportable 01/10/17 04:30 Pappenheimer Bodies Not Reportable 01/10/17 04:30 Sickle Cells Not Reportable 01/10/17 04:30 Target Cells Not Reportable 01/10/17 04:30 Tear Drop Cells Not Reportable 01/10/17 04:30 Ovalocytes Not Reportable 01/10/17 04:30 Helmet Cells Not Reportable 01/10/17 04:30 Jarrett-Hackberry Bodies Not Reportable 01/10/17 04:30 [place] Rings Not Reportable 01/10/17 04:30 [place] Cells Not Reportable 01/10/17 04:30 Bite Cells Not Reportable 01/10/17 04:30 Crenated Cell Not Reportable 01/10/17 04:30 Elliptocytes Not Reportable 01/10/17 04:30 Acanthocytes (Spur) Not Reportable 01/10/17 04:30 Rouleaux Not Reportable 01/10/17 04:30 Hemoglobin C Crystals Not Reportable 01/10/17 04:30 Schistocytes Not Reportable 01/10/17 04:30 Malaria parasites Not Reportable 01/10/17 04:30 Kyle Bodies Not Reportable 01/10/17 04:30 Hem Pathologist Commnt No 01/10/17 04:30 PT 14.1 Sec. (12.2-14.9) 01/17/17 04:10 INR 1.04 (0.87-1.13) 01/17/17 04:10 APTT 36.6 Sec. (24.2-36.6) 01/17/17 04:10 POC ABG pH 7.442 (7.35-7.45) 01/31/17 18:55 ABG pH 7.420 pH Units (7.350-7.450) 01/17/17 04:35 POC ABG pCO2 32.8 (35-45) L 01/31/17 18:55 ABG pCO2 34.5 mm Hg 01/17/17 04:35 POC ABG pO2 82 (80-105) 01/31/17 18:55 ABG pO2 160.3 mm Hg (80.0-90.0) H 01/17/17 04:35 POC ABG HCO3 22.4 01/31/17 18:55 ABG HCO3 21.9 mmol/L (20.0-26.0) 01/17/17 04:35 POC ABG Total CO2 23 01/31/17 18:55 POC ABG O2 Sat 97 01/31/17 18:55 ABG O2 Saturation 99.0 % (95.0-99.0) 01/17/17 04:35 ABG O2 Content 11.1 (0.0-44) 01/17/17 04:35 POC ABG Base Excess -2 01/31/17 18:55 ABG Base Excess -2.3 mmol/L (-2.0-3.0) L 01/17/17 04:35 ABG Hemoglobin 7.9 gm/dl (14.0-18.0) L 01/17/17 04:35 ABG Carboxyhemoglobin 1.5 % (0.0-5.0) 01/17/17 04:35 ABG Methemoglobin 0.5 % (0.0-1.5) 01/17/17 04:35 VBG pH 7.284 (7.320-7.420) L 01/09/17 10:16 Oxyhemoglobin 97.1 % (95.0-99.0) 01/17/17 04:35 FiO2 25 % 01/31/17 18:55 Sodium 137 mmol/L (137-145) 02/09/17 07:24 Potassium 4.9 mmol/L (3.6-5.0) 02/09/17 07:24 Chloride 95.5 mmol/L (98-107) L 02/09/17 07:24 Carbon Dioxide 29 mmol/L (22-30) 02/09/17 07:24 Anion Gap 17 mmol/L 02/09/17 07:24 BUN 52 mg/dL (9-20) H 02/09/17 07:24 Creatinine 0.8 mg/dL (0.8-1.5) 02/09/17 07:24 Estimated GFR > 60 ml/min 02/09/17 07:24 BUN/Creatinine Ratio 65 % 02/09/17 07:24 Glucose 277 mg/dL (75-100) H 02/09/17 07:24 POC Glucose 227 (70-105) H 02/21/17 04:54 Lactic Acid 0.80 mmol/L (0.7-2.0) 01/30/17 11:49 Calcium 9.4 mg/dL (8.4-10.2) 02/09/17 07:24 Phosphorus 3.60 mg/dL (2.5-4.5) 01/22/17 04:00 Magnesium 2.10 mg/dL (1.7-2.3) 01/22/17 04:00 Total Bilirubin 0.30 mg/dL (0.1-1.2) 01/22/17 04:00 AST 44 units/L (5-40) H 01/22/17 04:00 ALT 23 units/L (7-56) 01/22/17 04:00 Alkaline Phosphatase 379 units/L (35-129) H 01/22/17 04:00 Ammonia 35.0 umol/L (25-60) 01/09/17 10:16 Total Creatine Kinase 135 units/L (55-170) 01/09/17 10:16 CK-MB (CK-2) 7.1 ng/mL (0.0-4.0) H 01/09/17 10:16 CK-MB (CK-2) Rel Index 5.2 (0-4) H 01/09/17 10:16 Troponin T < 0.010 ng/mL (0.00-0.029) 01/09/17 10:16 NT-Pro-B Natriuret Pep 602.9 pg/mL (0-900) 01/09/17 10:16 Total Protein 7.9 g/dL (6.3-8.2) 01/22/17 04:00 Albumin 2.7 g/dL (3.9-5) L 01/22/17 04:00 Albumin/Globulin Ratio 0.5 % 01/22/17 04:00 TSH 52.800 mlU/mL (0.270-4.200) H 01/09/17 10:16 Free T4 0.78 ng/dL (0.76-1.46) 01/09/17 10:16 Total Cortisol 54.8 mcg/dL () 01/09/17 16:19 Urine Color Yellow (Yellow) 01/28/17 17:52 Urine Turbidity Clear (Clear) 01/28/17 17:52 Urine pH 6.0 (5.0-7.0) 01/28/17 17:52 Ur Specific [place] 1.016 (1.003-1.030) 01/28/17 17:52 Urine Protein 100 mg/dl mg/dL (Negative) 01/28/17 17:52 Urine Glucose (UA) >=500 mg/dL (Negative) 01/28/17 17:52 Urine Ketones Neg mg/dL (Negative) 01/28/17 17:52 Urine Blood Sm (Negative) 01/28/17 17:52 Urine Nitrite Neg (Negative) 01/28/17 17:52 Urine Bilirubin Neg (Negative) 01/28/17 17:52 Urine Urobilinogen < 2.0 mg/dL (<2.0) 01/28/17 17:52 Ur Leukocyte Esterase Lg (Negative) 01/28/17 17:52 Urine WBC (Auto) > 182.0 /HPF (0.0-6.0) H 01/28/17 17:52 Urine RBC (Auto) 113.0 /HPF (0.0-6.0) 01/28/17 17:52 Urine Bacteria (Auto) 2+ /HPF (Negative) 01/28/17 17:52 Urine WBC Clumps 3+ /HPF 01/28/17 17:52 Urine Mucus Few /HPF 01/14/17 14:07 Urine Yeast (Budding) 3+ /HPF 01/14/17 14:07 Salicylates < 0.3 mg/dL (2.8-20.0) L 01/09/17 10:16 Urine Opiates Screen Presumptive negative 01/09/17 10:23 Urine Methadone Screen Presumptive negative 01/09/17 10:23 Acetaminophen < 15.0 ug/mL (10.0-30.0) 01/09/17 10:16 Ur Barbiturates Screen Presumptive negative 01/09/17 10:23 Ur Phencyclidine Scrn Presumptive negative 01/09/17 10:23 Ur Amphetamines Screen Presumptive negative 01/09/17 10:23 U Benzodiazepines Scrn Presumptive negative 01/09/17 10:23 Urine Cocaine Screen Presumptive negative 01/09/17 10:23 U Marijuana (THC) Screen Presumptive negative 01/09/17 10:23 Drugs of Abuse Note Disclamer 01/09/17 10:23 Plasma/Serum Alcohol < 0.01 gm% (0-0.07) 01/09/17 10:16
[2017-02-22] MEDS: SYNTHROID PO SCH (06:19)
[2017-02-22] MEDS: NOVOLOG SUB-Q SCH ×3 (06:21→21:41)
[2017-02-22] MEDS: HEPARIN SUB-Q SCH ×2 (11:12→21:13)
[2017-02-22] MEDS: NORMODYNE PO SCH ×2 (11:13→21:16)
[2017-02-22] MEDS: PEPCID PO SCH ×2 (11:13→21:16)
[2017-02-22] MEDS: LEVEMIR (NF) SUB-Q SCH (11:13)
--- NOTE | 2017-02-22 11:22 | Progress Note ---
Assessment and Plan Acute respiratory failure,on PSV/CPAP runs qd. Tolerating down to PSV 5, VT < 200 below this Fever. None at this time. Hypoglycemia/hypothermia - Metabolic encephalopathy. Severe. Prolonged vegetative state Hypothyroidism; doubt myxedema coma UTI/SIRS Recommendations Currently the patient is DO NOT RESUSCITATE. Waiting for final decision from court order regarding current support versus termination of care Continue PSV/CPAP trials Poor prognosis; complex patient Critical care time with a 31 minutes of [id number] evaluation and coordination of care Subjective Date of service: 02/22/17 Principal diagnosis: Acute respiratory failure,encephalopathy Objective Vital Signs - 12hr 02/22/17 02/22/17 02/22/17 00:00 02:00 04:00 Temperature 99.3 F Pulse Rate 64 67 66 Respiratory 15 14 12 Rate Blood Pressure 137/87 137/87 137/87 O2 Sat by Pulse 100 100 100 Oximetry 02/22/17 07:24 Temperature Pulse Rate 66 Respiratory 21 Rate Blood Pressure 137/87 O2 Sat by Pulse 99 Oximetry Constitutional: comatose, other (orally intubated, on vent support) Eyes: non-icteric ENT: oropharynx moist Neck: supple Effort: normal Ascultation: Bilateral: clear, diminished breath sounds Cardiovascular: regular rate and rhythm Gastrointestinal: normoactive bowel sounds, soft, non-tender, non-distended Integumentary: normal Extremities: no cyanosis, no edema, pink and warm Neurologic: other (unresponsive except for nonfocal response to pain stimulation ) Psychiatric: other (unable to obtain) CBC and BMP: 02/09/17 07:24 02/09/17 07:24 ABG, PT/INR, D-dimer: ABG POC ABG pH 7.442 (7.35-7.45) 01/31/17 18:55 ABG pH 7.420 pH Units (7.350-7.450) 01/17/17 04:35 POC ABG pCO2 32.8 (35-45) L 01/31/17 18:55 ABG pCO2 34.5 mm Hg 01/17/17 04:35 POC ABG pO2 82 (80-105) 01/31/17 18:55 ABG pO2 160.3 mm Hg (80.0-90.0) H 01/17/17 04:35 POC ABG HCO3 22.4 01/31/17 18:55 POC ABG Total CO2 23 01/31/17 18:55 POC ABG O2 Sat 97 01/31/17 18:55 ABG O2 Saturation 99.0 % (95.0-99.0) 01/17/17 04:35 PT/INR, D-dimer PT 14.1 Sec. (12.2-14.9) 01/17/17 04:10 INR 1.04 (0.87-1.13) 01/17/17 04:10 Abnormal lab findings: Abnormal Labs 01/09/17 01/09/17 01/09/17 12:49 13:13 14:21 WBC RBC Hgb Hct MCV MCH RDW Plt Count Lymph % (Auto) [place] % (Auto) Eos % (Auto) Seg Neutrophils % Seg Neuts % (Manual) Lymphocytes % (Manual) Seg Neutrophils # Seg Neutrophils # Man Lymphocytes # (Manual) POC ABG pH ABG pH POC ABG pCO2 POC ABG pO2 ABG pO2 ABG HCO3 ABG Base Excess ABG Hemoglobin Oxyhemoglobin Sodium Potassium Chloride Carbon Dioxide BUN Creatinine Glucose POC Glucose < 40 L 128 H 65 L Lactic Acid Calcium AST Alkaline Phosphatase Albumin Urine WBC (Auto) 01/09/17 01/09/17 01/09/17 15:09 16:28 17:14 WBC RBC Hgb Hct MCV MCH RDW Plt Count Lymph % (Auto) [place] % (Auto) Eos % (Auto) Seg Neutrophils % Seg Neuts % (Manual) Lymphocytes % (Manual) Seg Neutrophils # Seg Neutrophils # Man Lymphocytes # (Manual) POC ABG pH ABG pH POC ABG pCO2 POC ABG pO2 ABG pO2 ABG HCO3 ABG Base Excess ABG Hemoglobin Oxyhemoglobin Sodium Potassium Chloride Carbon Dioxide BUN Creatinine Glucose POC Glucose 120 H 44 L 112 H Lactic Acid Calcium AST Alkaline Phosphatase Albumin Urine WBC (Auto) 01/10/17 01/10/17 01/10/17 04:30 04:30 05:41 WBC 24.1 H RBC 3.38 L Hgb 8.5 L Hct 26.0 L MCV 77 L MCH 25 L RDW 17.9 H Plt Count 474 H Lymph % (Auto) [place] % (Auto) Eos % (Auto) Seg Neutrophils % Seg Neuts % (Manual) 88.0 H Lymphocytes % (Manual) 4.0 L Seg Neutrophils # Seg Neutrophils # Man 21.2 H Lymphocytes # (Manual) 1.0 L POC ABG pH ABG pH POC ABG pCO2 POC ABG pO2 ABG pO2 ABG HCO3 ABG Base Excess ABG Hemoglobin Oxyhemoglobin Sodium Potassium Chloride Carbon Dioxide 17 L BUN 27 H Creatinine Glucose POC Glucose 68 L Lactic Acid Calcium 7.5 L AST Alkaline Phosphatase Albumin Urine WBC (Auto) 01/10/17 01/10/17 01/10/17 05:45 07:47 10:50 WBC RBC Hgb Hct MCV MCH RDW Plt Count Lymph % (Auto) [place] % (Auto) Eos % (Auto) Seg Neutrophils % Seg Neuts % (Manual) Lymphocytes % (Manual) Seg Neutrophils # Seg Neutrophils # Man Lymphocytes # (Manual) POC ABG pH ABG pH POC ABG pCO2 26.6 L POC ABG pO2 207 H ABG pO2 ABG HCO3 ABG Base Excess ABG Hemoglobin Oxyhemoglobin Sodium Potassium Chloride Carbon Dioxide BUN Creatinine Glucose POC Glucose 148 H 165 H Lactic Acid Calcium AST Alkaline Phosphatase Albumin Urine WBC (Auto) 01/10/17 01/10/17 01/10/17 13:41 20:20 21:39 WBC RBC Hgb Hct MCV MCH RDW Plt Count Lymph % (Auto) [place] % (Auto) Eos % (Auto) Seg Neutrophils % Seg Neuts % (Manual) Lymphocytes % (Manual) Seg Neutrophils # Seg Neutrophils # Man Lymphocytes # (Manual) POC ABG pH ABG pH POC ABG pCO2 POC ABG pO2 ABG pO2 ABG HCO3 ABG Base Excess ABG Hemoglobin Oxyhemoglobin Sodium Potassium Chloride Carbon Dioxide BUN Creatinine Glucose POC Glucose 114 H 150 H 175 H Lactic Acid Calcium AST Alkaline Phosphatase Albumin Urine WBC (Auto) 01/10/17 01/11/17 01/11/17 23:24 00:19 04:06 WBC RBC Hgb Hct MCV MCH RDW Plt Count Lymph % (Auto) [place] % (Auto) Eos % (Auto) Seg Neutrophils % Seg Neuts % (Manual) Lymphocytes % (Manual) Seg Neutrophils # Seg Neutrophils # Man Lymphocytes # (Manual) POC ABG pH 7.463 H ABG pH POC ABG pCO2 26.2 L POC ABG pO2 185 H ABG pO2 ABG HCO3 ABG Base Excess ABG Hemoglobin Oxyhemoglobin Sodium Potassium Chloride Carbon Dioxide BUN Creatinine Glucose POC Glucose 155 H 163 H Lactic Acid Calcium AST Alkaline Phosphatase Albumin Urine WBC (Auto) 01/11/17 01/11/17 01/11/17 05:20 05:20 06:21 WBC 15.2 H RBC 3.40 L Hgb 8.9 L Hct 26.3 L MCV 78 L MCH 26 L RDW 18.6 H Plt Count 462 H Lymph % (Auto) 13.2 L [place] % (Auto) Eos % (Auto) Seg Neutrophils % 80.8 H Seg Neuts % (Manual) Lymphocytes % (Manual) Seg Neutrophils # 12.3 H Seg Neutrophils # Man Lymphocytes # (Manual) POC ABG pH ABG pH POC ABG pCO2 POC ABG pO2 ABG pO2 ABG HCO3 ABG Base Excess ABG Hemoglobin Oxyhemoglobin Sodium Potassium 3.4 L Chloride 111.5 H Carbon Dioxide 17 L BUN Creatinine Glucose 147 H POC Glucose 139 H Lactic Acid Calcium 8.0 L AST Alkaline Phosphatase Albumin Urine WBC (Auto) 01/11/17 01/11/17 01/11/17 07:57 11:46 16:50 WBC RBC Hgb Hct MCV MCH RDW Plt Count Lymph % (Auto) [place] % (Auto) Eos % (Auto) Seg Neutrophils % Seg Neuts % (Manual) Lymphocytes % (Manual) Seg Neutrophils # Seg Neutrophils # Man Lymphocytes # (Manual) POC ABG pH ABG pH POC ABG pCO2 POC ABG pO2 ABG pO2 ABG HCO3 ABG Base Excess ABG Hemoglobin Oxyhemoglobin Sodium Potassium Chloride Carbon Dioxide BUN Creatinine Glucose POC Glucose 188 H 199 H 235 H Lactic Acid Calcium AST Alkaline Phosphatase Albumin Urine WBC (Auto) 01/11/17 01/12/17 01/12/17 23:15 05:02 06:56 WBC RBC Hgb Hct MCV MCH RDW Plt Count Lymph % (Auto) [place] % (Auto) Eos % (Auto) Seg Neutrophils % Seg Neuts % (Manual) Lymphocytes % (Manual) Seg Neutrophils # Seg Neutrophils # Man Lymphocytes # (Manual) POC ABG pH ABG pH POC ABG pCO2 28.0 L POC ABG pO2 178 H ABG pO2 ABG HCO3 ABG Base Excess ABG Hemoglobin Oxyhemoglobin Sodium Potassium Chloride Carbon Dioxide BUN Creatinine Glucose POC Glucose 155 H 119 H Lactic Acid Calcium AST Alkaline Phosphatase Albumin Urine WBC (Auto) 01/12/17 01/13/17 01/13/17 14:50 03:37 03:37 WBC RBC 3.61 L Hgb 9.3 L Hct 28.0 L MCV 78 L MCH 26 L RDW 18.2 H Plt Count Lymph % (Auto) [place] % (Auto) Eos % (Auto) Seg Neutrophils % Seg Neuts % (Manual) Lymphocytes % (Manual) Seg Neutrophils # Seg Neutrophils # Man Lymphocytes # (Manual) POC ABG pH ABG pH POC ABG pCO2 POC ABG pO2 ABG pO2 ABG HCO3 ABG Base Excess ABG Hemoglobin Oxyhemoglobin Sodium Potassium Chloride 112.4 H Carbon Dioxide 19 L BUN Creatinine Glucose 118 H POC Glucose 164 H Lactic Acid Calcium 8.0 L AST Alkaline Phosphatase Albumin Urine WBC (Auto) 01/13/17 01/13/17 01/13/17 04:26 06:15 11:50 WBC RBC Hgb Hct MCV MCH RDW Plt Count Lymph % (Auto) [place] % (Auto) Eos % (Auto) Seg Neutrophils % Seg Neuts % (Manual) Lymphocytes % (Manual) Seg Neutrophils # Seg Neutrophils # Man Lymphocytes # (Manual) POC ABG pH 7.485 H ABG pH POC ABG pCO2 25.4 L POC ABG pO2 73 L ABG pO2 ABG HCO3 ABG Base Excess ABG Hemoglobin Oxyhemoglobin Sodium Potassium Chloride Carbon Dioxide BUN Creatinine Glucose POC Glucose 116 H 171 H Lactic Acid Calcium AST Alkaline Phosphatase Albumin Urine WBC (Auto) 01/13/17 01/14/17 01/14/17 17:31 00:02 04:50 WBC RBC 3.32 L Hgb 8.5 L Hct 26.1 L MCV 79 L MCH 26 L RDW 18.2 H Plt Count Lymph % (Auto) [place] % (Auto) 9.0 H Eos % (Auto) Seg Neutrophils % Seg Neuts % (Manual) Lymphocytes % (Manual) Seg Neutrophils # Seg Neutrophils # Man Lymphocytes # (Manual) POC ABG pH ABG pH POC ABG pCO2 POC ABG pO2 ABG pO2 ABG HCO3 ABG Base Excess ABG Hemoglobin Oxyhemoglobin Sodium Potassium Chloride Carbon Dioxide BUN Creatinine Glucose POC Glucose 203 H 157 H Lactic Acid Calcium AST Alkaline Phosphatase Albumin Urine WBC (Auto) 01/14/17 01/14/17 01/14/17 04:50 05:10 11:27 WBC RBC Hgb Hct MCV MCH RDW Plt Count Lymph % (Auto) [place] % (Auto) Eos % (Auto) Seg Neutrophils % Seg Neuts % (Manual) Lymphocytes % (Manual) Seg Neutrophils # Seg Neutrophils # Man Lymphocytes # (Manual) POC ABG pH ABG pH POC ABG pCO2 POC ABG pO2 ABG pO2 ABG HCO3 ABG Base Excess ABG Hemoglobin Oxyhemoglobin Sodium Potassium Chloride 112.5 H Carbon Dioxide BUN Creatinine Glucose 149 H POC Glucose 176 H 147 H Lactic Acid Calcium 8.1 L AST Alkaline Phosphatase Albumin Urine WBC (Auto) 01/14/17 01/14/17 01/15/17 14:07 16:52 00:04 WBC RBC Hgb Hct MCV MCH RDW Plt Count Lymph % (Auto) [place] % (Auto) Eos % (Auto) Seg Neutrophils % Seg Neuts % (Manual) Lymphocytes % (Manual) Seg Neutrophils # Seg Neutrophils # Man Lymphocytes # (Manual) POC ABG pH ABG pH POC ABG pCO2 POC ABG pO2 ABG pO2 ABG HCO3 ABG Base Excess ABG Hemoglobin Oxyhemoglobin Sodium Potassium Chloride Carbon Dioxide BUN Creatinine Glucose POC Glucose 131 H 193 H Lactic Acid Calcium AST Alkaline Phosphatase Albumin Urine WBC (Auto) 53.0 H 01/15/17 01/15/17 01/15/17 05:26 11:49 17:47 WBC RBC Hgb Hct MCV MCH RDW Plt Count Lymph % (Auto) [place] % (Auto) Eos % (Auto) Seg Neutrophils % Seg Neuts % (Manual) Lymphocytes % (Manual) Seg Neutrophils # Seg Neutrophils # Man Lymphocytes # (Manual) POC ABG pH ABG pH POC ABG pCO2 POC ABG pO2 ABG pO2 ABG HCO3 ABG Base Excess ABG Hemoglobin Oxyhemoglobin Sodium Potassium Chloride Carbon Dioxide BUN Creatinine Glucose POC Glucose 215 H 121 H 211 H Lactic Acid Calcium AST Alkaline Phosphatase Albumin Urine WBC (Auto) 01/15/17 01/16/17 01/16/17 21:33 04:30 05:28 WBC RBC Hgb Hct MCV MCH RDW Plt Count Lymph % (Auto) [place] % (Auto) Eos % (Auto) Seg Neutrophils % Seg Neuts % (Manual) Lymphocytes % (Manual) Seg Neutrophils # Seg Neutrophils # Man Lymphocytes # (Manual) POC ABG pH ABG pH 7.457 H POC ABG pCO2 POC ABG pO2 ABG pO2 55.1 L ABG HCO3 19.4 L ABG Base Excess -4.0 L ABG Hemoglobin 6.8 L Oxyhemoglobin 94.9 L Sodium Potassium Chloride Carbon Dioxide BUN Creatinine Glucose POC Glucose 275 H 271 H Lactic Acid Calcium AST Alkaline Phosphatase Albumin Urine WBC (Auto) 01/16/17 01/16/17 01/17/17 13:45 21:39 04:10 WBC 4.4 L RBC 2.98 L Hgb 7.7 L Hct 23.3 L MCV 78 L MCH 26 L RDW 18.1 H Plt Count Lymph % (Auto) [place] % (Auto) Eos % (Auto) Seg Neutrophils % Seg Neuts % (Manual) Lymphocytes % (Manual) Seg Neutrophils # Seg Neutrophils # Man Lymphocytes # (Manual) POC ABG pH ABG pH POC ABG pCO2 POC ABG pO2 ABG pO2 ABG HCO3 ABG Base Excess ABG Hemoglobin Oxyhemoglobin Sodium Potassium Chloride Carbon Dioxide BUN Creatinine Glucose POC Glucose 236 H 258 H Lactic Acid Calcium AST Alkaline Phosphatase Albumin Urine WBC (Auto) 01/17/17 01/17/17 01/17/17 04:10 04:35 12:23 WBC RBC Hgb Hct MCV MCH RDW Plt Count Lymph % (Auto) [place] % (Auto) Eos % (Auto) Seg Neutrophils % Seg Neuts % (Manual) Lymphocytes % (Manual) Seg Neutrophils # Seg Neutrophils # Man Lymphocytes # (Manual) POC ABG pH ABG pH POC ABG pCO2 POC ABG pO2 ABG pO2 160.3 H ABG HCO3 ABG Base Excess -2.3 L ABG Hemoglobin 7.9 L Oxyhemoglobin Sodium Potassium 3.3 L Chloride 108.7 H Carbon Dioxide 20 L BUN 8 L Creatinine Glucose 202 H POC Glucose 321 H Lactic Acid Calcium 7.6 L AST Alkaline Phosphatase Albumin Urine WBC (Auto) 01/17/17 01/18/17 01/18/17 16:01 05:07 12:09 WBC RBC Hgb Hct MCV MCH RDW Plt Count Lymph % (Auto) [place] % (Auto) Eos % (Auto) Seg Neutrophils % Seg Neuts % (Manual) Lymphocytes % (Manual) Seg Neutrophils # Seg Neutrophils # Man Lymphocytes # (Manual) POC ABG pH ABG pH POC ABG pCO2 POC ABG pO2 ABG pO2 ABG HCO3 ABG Base Excess ABG Hemoglobin Oxyhemoglobin Sodium Potassium Chloride Carbon Dioxide BUN Creatinine Glucose POC Glucose 239 H 155 H 203 H Lactic Acid Calcium AST Alkaline Phosphatase Albumin Urine WBC (Auto) 01/18/17 01/18/17 01/19/17 17:54 23:43 04:28 WBC RBC Hgb Hct MCV MCH RDW Plt Count Lymph % (Auto) [place] % (Auto) Eos % (Auto) Seg Neutrophils % Seg Neuts % (Manual) Lymphocytes % (Manual) Seg Neutrophils # Seg Neutrophils # Man Lymphocytes # (Manual) POC ABG pH ABG pH POC ABG pCO2 POC ABG pO2 ABG pO2 ABG HCO3 ABG Base Excess ABG Hemoglobin Oxyhemoglobin Sodium Potassium Chloride Carbon Dioxide BUN Creatinine Glucose POC Glucose 132 H 125 H 182 H Lactic Acid Calcium AST Alkaline Phosphatase Albumin Urine WBC (Auto) 01/19/17 01/19/17 01/20/17 12:11 17:23 00:12 WBC RBC Hgb Hct MCV MCH RDW Plt Count Lymph % (Auto) [place] % (Auto) Eos % (Auto) Seg Neutrophils % Seg Neuts % (Manual) Lymphocytes % (Manual) Seg Neutrophils # Seg Neutrophils # Man Lymphocytes # (Manual) POC ABG pH ABG pH POC ABG pCO2 POC ABG pO2 ABG pO2 ABG HCO3 ABG Base Excess ABG Hemoglobin Oxyhemoglobin Sodium Potassium Chloride Carbon Dioxide BUN Creatinine Glucose POC Glucose 153 H 66 L 139 H Lactic Acid Calcium AST Alkaline Phosphatase Albumin Urine WBC (Auto) 01/20/17 01/20/17 01/20/17 05:44 11:48 17:42 WBC RBC Hgb Hct MCV MCH RDW Plt Count Lymph % (Auto) [place] % (Auto) Eos % (Auto) Seg Neutrophils % Seg Neuts % (Manual) Lymphocytes % (Manual) Seg Neutrophils # Seg Neutrophils # Man Lymphocytes # (Manual) POC ABG pH ABG pH POC ABG pCO2 POC ABG pO2 ABG pO2 ABG HCO3 ABG Base Excess ABG Hemoglobin Oxyhemoglobin Sodium Potassium Chloride Carbon Dioxide BUN Creatinine Glucose POC Glucose 176 H 218 H 132 H Lactic Acid Calcium AST Alkaline Phosphatase Albumin Urine WBC (Auto) 01/20/17 01/21/17 01/21/17 23:43 05:34 11:17 WBC RBC Hgb Hct MCV MCH RDW Plt Count Lymph % (Auto) [place] % (Auto) Eos % (Auto) Seg Neutrophils % Seg Neuts % (Manual) Lymphocytes % (Manual) Seg Neutrophils # Seg Neutrophils # Man Lymphocytes # (Manual) POC ABG pH ABG pH POC ABG pCO2 POC ABG pO2 ABG pO2 ABG HCO3 ABG Base Excess ABG Hemoglobin Oxyhemoglobin Sodium Potassium Chloride Carbon Dioxide BUN Creatinine Glucose POC Glucose 178 H 106 H 213 H Lactic Acid Calcium AST Alkaline Phosphatase Albumin Urine WBC (Auto) 01/21/17 01/22/17 01/22/17 23:37 04:00 04:00 WBC RBC 3.26 L Hgb 8.3 L Hct 25.5 L MCV 78 L MCH 25 L RDW 17.9 H Plt Count Lymph % (Auto) [place] % (Auto) 7.9 H Eos % (Auto) 6.2 H Seg Neutrophils % Seg Neuts % (Manual) Lymphocytes % (Manual) Seg Neutrophils # Seg Neutrophils # Man Lymphocytes # (Manual) POC ABG pH ABG pH POC ABG pCO2 POC ABG pO2 ABG pO2 ABG HCO3 ABG Base Excess ABG Hemoglobin Oxyhemoglobin Sodium Potassium Chloride 95.5 L Carbon Dioxide 31 H D BUN Creatinine Glucose 134 H POC Glucose 140 H Lactic Acid Calcium AST 44 H Alkaline Phosphatase 379 H Albumin 2.7 L Urine WBC (Auto) 01/22/17 01/22/17 01/22/17 04:58 12:12 18:12 WBC RBC Hgb Hct MCV MCH RDW Plt Count Lymph % (Auto) [place] % (Auto) Eos % (Auto) Seg Neutrophils % Seg Neuts % (Manual) Lymphocytes % (Manual) Seg Neutrophils # Seg Neutrophils # Man Lymphocytes # (Manual) POC ABG pH ABG pH POC ABG pCO2 POC ABG pO2 ABG pO2 ABG HCO3 ABG Base Excess ABG Hemoglobin Oxyhemoglobin Sodium Potassium Chloride Carbon Dioxide BUN Creatinine Glucose POC Glucose 146 H 255 H 182 H Lactic Acid Calcium AST Alkaline Phosphatase Albumin Urine WBC (Auto) 01/22/17 01/23/17 01/23/17 23:39 04:43 12:12 WBC RBC Hgb Hct MCV MCH RDW Plt Count Lymph % (Auto) [place] % (Auto) Eos % (Auto) Seg Neutrophils % Seg Neuts % (Manual) Lymphocytes % (Manual) Seg Neutrophils # Seg Neutrophils # Man Lymphocytes # (Manual) POC ABG pH ABG pH POC ABG pCO2 POC ABG pO2 ABG pO2 ABG HCO3 ABG Base Excess ABG Hemoglobin Oxyhemoglobin Sodium Potassium Chloride Carbon Dioxide BUN Creatinine Glucose POC Glucose 134 H 218 H 128 H Lactic Acid Calcium AST Alkaline Phosphatase Albumin Urine WBC (Auto) 01/23/17 01/24/17 01/24/17 17:36 00:08 05:16 WBC RBC Hgb Hct MCV MCH RDW Plt Count Lymph % (Auto) [place] % (Auto) Eos % (Auto) Seg Neutrophils % Seg Neuts % (Manual) Lymphocytes % (Manual) Seg Neutrophils # Seg Neutrophils # Man Lymphocytes # (Manual) POC ABG pH ABG pH POC ABG pCO2 POC ABG pO2 ABG pO2 ABG HCO3 ABG Base Excess ABG Hemoglobin Oxyhemoglobin Sodium Potassium Chloride Carbon Dioxide BUN Creatinine Glucose POC Glucose 156 H 129 H 169 H Lactic Acid Calcium AST Alkaline Phosphatase Albumin Urine WBC (Auto) 01/24/17 01/24/17 01/24/17 11:40 17:43 23:23 WBC RBC Hgb Hct MCV MCH RDW Plt Count Lymph % (Auto) [place] % (Auto) Eos % (Auto) Seg Neutrophils % Seg Neuts % (Manual) Lymphocytes % (Manual) Seg Neutrophils # Seg Neutrophils # Man Lymphocytes # (Manual) POC ABG pH ABG pH POC ABG pCO2 POC ABG pO2 ABG pO2 ABG HCO3 ABG Base Excess ABG Hemoglobin Oxyhemoglobin Sodium Potassium Chloride Carbon Dioxide BUN Creatinine Glucose POC Glucose 187 H 215 H 222 H Lactic Acid Calcium AST Alkaline Phosphatase Albumin Urine WBC (Auto) 01/25/17 01/25/17 01/25/17 04:56 11:52 17:37 WBC RBC Hgb Hct MCV MCH RDW Plt Count Lymph % (Auto) [place] % (Auto) Eos % (Auto) Seg Neutrophils % Seg Neuts % (Manual) Lymphocytes % (Manual) Seg Neutrophils # Seg Neutrophils # Man Lymphocytes # (Manual) POC ABG pH ABG pH POC ABG pCO2 POC ABG pO2 ABG pO2 ABG HCO3 ABG Base Excess ABG Hemoglobin Oxyhemoglobin Sodium Potassium Chloride Carbon Dioxide BUN Creatinine Glucose POC Glucose 210 H 284 H 218 H Lactic Acid Calcium AST Alkaline Phosphatase Albumin Urine WBC (Auto) 01/26/17 01/26/17 01/26/17 00:02 05:33 12:17 WBC RBC Hgb Hct MCV MCH RDW Plt Count Lymph % (Auto) [place] % (Auto) Eos % (Auto) Seg Neutrophils % Seg Neuts % (Manual) Lymphocytes % (Manual) Seg Neutrophils # Seg Neutrophils # Man Lymphocytes # (Manual) POC ABG pH ABG pH POC ABG pCO2 POC ABG pO2 ABG pO2 ABG HCO3 ABG Base Excess ABG Hemoglobin Oxyhemoglobin Sodium Potassium Chloride Carbon Dioxide BUN Creatinine Glucose POC Glucose 192 H 199 H 227 H Lactic Acid Calcium AST Alkaline Phosphatase Albumin Urine WBC (Auto) 01/26/17 01/26/17 01/27/17 17:50 23:57 05:31 WBC RBC Hgb Hct MCV MCH RDW Plt Count Lymph % (Auto) [place] % (Auto) Eos % (Auto) Seg Neutrophils % Seg Neuts % (Manual) Lymphocytes % (Manual) Seg Neutrophils # Seg Neutrophils # Man Lymphocytes # (Manual) POC ABG pH ABG pH POC ABG pCO2 POC ABG pO2 ABG pO2 ABG HCO3 ABG Base Excess ABG Hemoglobin Oxyhemoglobin Sodium Potassium Chloride Carbon Dioxide BUN Creatinine Glucose POC Glucose 229 H 186 H 285 H Lactic Acid Calcium AST Alkaline Phosphatase Albumin Urine WBC (Auto) 01/27/17 01/27/17 01/27/17 11:42 17:47 23:58 WBC RBC Hgb Hct MCV MCH RDW Plt Count Lymph % (Auto) [place] % (Auto) Eos % (Auto) Seg Neutrophils % Seg Neuts % (Manual) Lymphocytes % (Manual) Seg Neutrophils # Seg Neutrophils # Man Lymphocytes # (Manual) POC ABG pH ABG pH POC ABG pCO2 POC ABG pO2 ABG pO2 ABG HCO3 ABG Base Excess ABG Hemoglobin Oxyhemoglobin Sodium Potassium Chloride Carbon Dioxide BUN Creatinine Glucose POC Glucose 260 H 329 H 225 H Lactic Acid Calcium AST Alkaline Phosphatase Albumin Urine WBC (Auto) 01/27/17 01/27/17 01/28/17 Unknown Unknown 03:44 WBC 12.1 H RBC 3.28 L 3.14 L Hgb 8.5 L 8.2 L Hct 25.5 L 24.1 L MCV 78 L 77 L MCH 26 L 26 L RDW 16.8 H 16.9 H Plt Count 601 H 567 H Lymph % (Auto) [place] % (Auto) Eos % (Auto) Seg Neutrophils % Seg Neuts % (Manual) Lymphocytes % (Manual) Seg Neutrophils # Seg Neutrophils # Man Lymphocytes # (Manual) POC ABG pH ABG pH POC ABG pCO2 POC ABG pO2 ABG pO2 ABG HCO3 ABG Base Excess ABG Hemoglobin Oxyhemoglobin Sodium 128 L Potassium 5.4 H Chloride 87.5 L Carbon Dioxide BUN 44 H Creatinine Glucose 250 H POC Glucose Lactic Acid Calcium AST Alkaline Phosphatase Albumin Urine WBC (Auto) 01/28/17 01/28/17 01/28/17 03:44 11:43 16:47 WBC RBC Hgb Hct MCV MCH RDW Plt Count Lymph % (Auto) [place] % (Auto) Eos % (Auto) Seg Neutrophils % Seg Neuts % (Manual) Lymphocytes % (Manual) Seg Neutrophils # Seg Neutrophils # Man Lymphocytes # (Manual) POC ABG pH ABG pH POC ABG pCO2 POC ABG pO2 ABG pO2 ABG HCO3 ABG Base Excess ABG Hemoglobin Oxyhemoglobin Sodium Potassium Chloride Carbon Dioxide BUN 42 H Creatinine Glucose 128 H POC Glucose 351 H 249 H Lactic Acid Calcium AST Alkaline Phosphatase Albumin Urine WBC (Auto) 01/28/17 01/29/17 01/29/17 17:52 05:25 05:25 WBC 13.6 H RBC 3.25 L Hgb 8.3 L Hct 25.1 L MCV 77 L MCH 26 L RDW 16.8 H Plt Count 514 H Lymph % (Auto) [place] % (Auto) Eos % (Auto) Seg Neutrophils % Seg Neuts % (Manual) Lymphocytes % (Manual) Seg Neutrophils # Seg Neutrophils # Man Lymphocytes # (Manual) POC ABG pH ABG pH POC ABG pCO2 POC ABG pO2 ABG pO2 ABG HCO3 ABG Base Excess ABG Hemoglobin Oxyhemoglobin Sodium Potassium Chloride 97.8 L Carbon Dioxide BUN 34 H Creatinine Glucose 222 H POC Glucose Lactic Acid Calcium AST Alkaline Phosphatase Albumin Urine WBC (Auto) > 182.0 H 01/29/17 01/29/17 01/29/17 09:32 11:56 18:11 WBC RBC Hgb Hct MCV MCH RDW Plt Count Lymph % (Auto) [place] % (Auto) Eos % (Auto) Seg Neutrophils % Seg Neuts % (Manual) Lymphocytes % (Manual) Seg Neutrophils # Seg Neutrophils # Man Lymphocytes # (Manual) POC ABG pH ABG pH POC ABG pCO2 POC ABG pO2 ABG pO2 ABG HCO3 ABG Base Excess ABG Hemoglobin Oxyhemoglobin Sodium Potassium Chloride Carbon Dioxide BUN Creatinine Glucose POC Glucose 261 H 215 H Lactic Acid 2.50 H* Calcium AST Alkaline Phosphatase Albumin Urine WBC (Auto) 01/29/17 01/30/17 01/30/17 23:55 05:31 05:31 WBC 15.2 H RBC 3.09 L Hgb 7.9 L Hct 23.9 L MCV 77 L MCH 26 L RDW 16.9 H Plt Count 569 H Lymph % (Auto) [place] % (Auto) Eos % (Auto) Seg Neutrophils % Seg Neuts % (Manual) Lymphocytes % (Manual) Seg Neutrophils # Seg Neutrophils # Man Lymphocytes # (Manual) POC ABG pH ABG pH POC ABG pCO2 POC ABG pO2 ABG pO2 ABG HCO3 ABG Base Excess ABG Hemoglobin Oxyhemoglobin Sodium Potassium Chloride Carbon Dioxide BUN 24 H Creatinine Glucose 235 H POC Glucose 176 H Lactic Acid Calcium AST Alkaline Phosphatase Albumin Urine WBC (Auto) 01/30/17 01/30/17 01/30/17 05:34 11:38 17:58 WBC RBC Hgb Hct MCV MCH RDW Plt Count Lymph % (Auto) [place] % (Auto) Eos % (Auto) Seg Neutrophils % Seg Neuts % (Manual) Lymphocytes % (Manual) Seg Neutrophils # Seg Neutrophils # Man Lymphocytes # (Manual) POC ABG pH ABG pH POC ABG pCO2 POC ABG pO2 ABG pO2 ABG HCO3 ABG Base Excess ABG Hemoglobin Oxyhemoglobin Sodium Potassium Chloride Carbon Dioxide BUN Creatinine Glucose POC Glucose 243 H 298 H 208 H Lactic Acid Calcium AST Alkaline Phosphatase Albumin Urine WBC (Auto) 01/30/17 01/31/17 01/31/17 23:29 04:39 04:39 WBC 11.4 H RBC 3.22 L Hgb 8.2 L Hct 24.9 L MCV 78 L MCH 25 L RDW 17.2 H Plt Count 576 H Lymph % (Auto) [place] % (Auto) Eos % (Auto) Seg Neutrophils % Seg Neuts % (Manual) Lymphocytes % (Manual) Seg Neutrophils # Seg Neutrophils # Man Lymphocytes # (Manual) POC ABG pH ABG pH POC ABG pCO2 POC ABG pO2 ABG pO2 ABG HCO3 ABG Base Excess ABG Hemoglobin Oxyhemoglobin Sodium Potassium Chloride Carbon Dioxide BUN Creatinine 0.7 L Glucose 223 H POC Glucose 245 H Lactic Acid Calcium AST Alkaline Phosphatase Albumin Urine WBC (Auto) 01/31/17 01/31/17 01/31/17 05:57 12:23 17:41 WBC RBC Hgb Hct MCV MCH RDW Plt Count Lymph % (Auto) [place] % (Auto) Eos % (Auto) Seg Neutrophils % Seg Neuts % (Manual) Lymphocytes % (Manual) Seg Neutrophils # Seg Neutrophils # Man Lymphocytes # (Manual) POC ABG pH ABG pH POC ABG pCO2 POC ABG pO2 ABG pO2 ABG HCO3 ABG Base Excess ABG Hemoglobin Oxyhemoglobin Sodium Potassium Chloride Carbon Dioxide BUN Creatinine Glucose POC Glucose 264 H 252 H 208 H Lactic Acid Calcium AST Alkaline Phosphatase Albumin Urine WBC (Auto) 01/31/17 01/31/17 02/01/17 18:55 22:59 03:38 WBC RBC 2.81 L Hgb 7.4 L Hct 22.1 L MCV 79 L MCH 27 L RDW 17.0 H Plt Count 540 H Lymph % (Auto) [place] % (Auto) Eos % (Auto) Seg Neutrophils % Seg Neuts % (Manual) Lymphocytes % (Manual) Seg Neutrophils # Seg Neutrophils # Man Lymphocytes # (Manual) POC ABG pH ABG pH POC ABG pCO2 32.8 L POC ABG pO2 ABG pO2 ABG HCO3 ABG Base Excess ABG Hemoglobin Oxyhemoglobin Sodium Potassium Chloride Carbon Dioxide BUN Creatinine Glucose POC Glucose 40 L Lactic Acid Calcium AST Alkaline Phosphatase Albumin Urine WBC (Auto) 02/01/17 02/01/17 02/01/17 03:38 05:17 12:19 WBC RBC Hgb Hct MCV MCH RDW Plt Count Lymph % (Auto) [place] % (Auto) Eos % (Auto) Seg Neutrophils % Seg Neuts % (Manual) Lymphocytes % (Manual) Seg Neutrophils # Seg Neutrophils # Man Lymphocytes # (Manual) POC ABG pH ABG pH POC ABG pCO2 POC ABG pO2 ABG pO2 ABG HCO3 ABG Base Excess ABG Hemoglobin Oxyhemoglobin Sodium Potassium Chloride Carbon Dioxide 21 L BUN Creatinine 0.7 L Glucose POC Glucose 140 H 213 H Lactic Acid Calcium AST Alkaline Phosphatase Albumin Urine WBC (Auto) 02/01/17 02/01/17 02/02/17 16:44 23:59 05:14 WBC RBC Hgb Hct MCV MCH RDW Plt Count Lymph % (Auto) [place] % (Auto) Eos % (Auto) Seg Neutrophils % Seg Neuts % (Manual) Lymphocytes % (Manual) Seg Neutrophils # Seg Neutrophils # Man Lymphocytes # (Manual) POC ABG pH ABG pH POC ABG pCO2 POC ABG pO2 ABG pO2 ABG HCO3 ABG Base Excess ABG Hemoglobin Oxyhemoglobin Sodium Potassium Chloride Carbon Dioxide BUN Creatinine Glucose POC Glucose 172 H 181 H 194 H Lactic Acid Calcium AST Alkaline Phosphatase Albumin Urine WBC (Auto) 02/02/17 02/02/17 02/02/17 11:24 11:46 11:46 WBC RBC 2.94 L Hgb 7.5 L Hct 23.0 L MCV 78 L MCH 25 L RDW 16.9 H Plt Count 520 H Lymph % (Auto) [place] % (Auto) Eos % (Auto) Seg Neutrophils % Seg Neuts % (Manual) Lymphocytes % (Manual) Seg Neutrophils # Seg Neutrophils # Man Lymphocytes # (Manual) POC ABG pH ABG pH POC ABG pCO2 POC ABG pO2 ABG pO2 ABG HCO3 ABG Base Excess ABG Hemoglobin Oxyhemoglobin Sodium Potassium Chloride Carbon Dioxide BUN Creatinine 0.6 L Glucose 189 H POC Glucose 209 H Lactic Acid Calcium 8.1 L AST Alkaline Phosphatase Albumin Urine WBC (Auto) 02/02/17 02/02/17 02/03/17 17:47 23:32 05:53 WBC RBC Hgb Hct MCV MCH RDW Plt Count Lymph % (Auto) [place] % (Auto) Eos % (Auto) Seg Neutrophils % Seg Neuts % (Manual) Lymphocytes % (Manual) Seg Neutrophils # Seg Neutrophils # Man Lymphocytes # (Manual) POC ABG pH ABG pH POC ABG pCO2 POC ABG pO2 ABG pO2 ABG HCO3 ABG Base Excess ABG Hemoglobin Oxyhemoglobin Sodium Potassium Chloride Carbon Dioxide BUN Creatinine Glucose POC Glucose 147 H 176 H 224 H Lactic Acid Calcium AST Alkaline Phosphatase Albumin Urine WBC (Auto) 02/03/17 02/03/17 02/03/17 11:19 16:59 23:38 WBC RBC Hgb Hct MCV MCH RDW Plt Count Lymph % (Auto) [place] % (Auto) Eos % (Auto) Seg Neutrophils % Seg Neuts % (Manual) Lymphocytes % (Manual) Seg Neutrophils # Seg Neutrophils # Man Lymphocytes # (Manual) POC ABG pH ABG pH POC ABG pCO2 POC ABG pO2 ABG pO2 ABG HCO3 ABG Base Excess ABG Hemoglobin Oxyhemoglobin Sodium Potassium Chloride Carbon Dioxide BUN Creatinine Glucose POC Glucose 228 H 189 H 191 H Lactic Acid Calcium AST Alkaline Phosphatase Albumin Urine WBC (Auto) 02/04/17 02/04/17 02/04/17 05:45 11:20 17:20 WBC RBC Hgb Hct MCV MCH RDW Plt Count Lymph % (Auto) [place] % (Auto) Eos % (Auto) Seg Neutrophils % Seg Neuts % (Manual) Lymphocytes % (Manual) Seg Neutrophils # Seg Neutrophils # Man Lymphocytes # (Manual) POC ABG pH ABG pH POC ABG pCO2 POC ABG pO2 ABG pO2 ABG HCO3 ABG Base Excess ABG Hemoglobin Oxyhemoglobin Sodium Potassium Chloride Carbon Dioxide BUN Creatinine Glucose POC Glucose 251 H 243 H 163 H Lactic Acid Calcium AST Alkaline Phosphatase Albumin Urine WBC (Auto) 02/05/17 02/05/17 02/05/17 00:17 05:38 12:38 WBC RBC Hgb Hct MCV MCH RDW Plt Count Lymph % (Auto) [place] % (Auto) Eos % (Auto) Seg Neutrophils % Seg Neuts % (Manual) Lymphocytes % (Manual) Seg Neutrophils # Seg Neutrophils # Man Lymphocytes # (Manual) POC ABG pH ABG pH POC ABG pCO2 POC ABG pO2 ABG pO2 ABG HCO3 ABG Base Excess ABG Hemoglobin Oxyhemoglobin Sodium Potassium Chloride Carbon Dioxide BUN Creatinine Glucose POC Glucose 200 H 248 H 241 H Lactic Acid Calcium AST Alkaline Phosphatase Albumin Urine WBC (Auto) 02/05/17 02/05/17 02/06/17 16:29 23:56 05:30 WBC RBC Hgb Hct MCV MCH RDW Plt Count Lymph % (Auto) [place] % (Auto) Eos % (Auto) Seg Neutrophils % Seg Neuts % (Manual) Lymphocytes % (Manual) Seg Neutrophils # Seg Neutrophils # Man Lymphocytes # (Manual) POC ABG pH ABG pH POC ABG pCO2 POC ABG pO2 ABG pO2 ABG HCO3 ABG Base Excess ABG Hemoglobin Oxyhemoglobin Sodium Potassium Chloride Carbon Dioxide BUN Creatinine Glucose POC Glucose 257 H 258 H 120 H Lactic Acid Calcium AST Alkaline Phosphatase Albumin Urine WBC (Auto) 02/06/17 02/06/17 02/06/17 11:50 17:11 23:50 WBC RBC Hgb Hct MCV MCH RDW Plt Count Lymph % (Auto) [place] % (Auto) Eos % (Auto) Seg Neutrophils % Seg Neuts % (Manual) Lymphocytes % (Manual) Seg Neutrophils # Seg Neutrophils # Man Lymphocytes # (Manual) POC ABG pH ABG pH POC ABG pCO2 POC ABG pO2 ABG pO2 ABG HCO3 ABG Base Excess ABG Hemoglobin Oxyhemoglobin Sodium Potassium Chloride Carbon Dioxide BUN Creatinine Glucose POC Glucose 254 H 149 H 240 H Lactic Acid Calcium AST Alkaline Phosphatase Albumin Urine WBC (Auto) 02/07/17 02/07/17 02/07/17 05:22 11:15 18:33 WBC RBC Hgb Hct MCV MCH RDW Plt Count Lymph % (Auto) [place] % (Auto) Eos % (Auto) Seg Neutrophils % Seg Neuts % (Manual) Lymphocytes % (Manual) Seg Neutrophils # Seg Neutrophils # Man Lymphocytes # (Manual) POC ABG pH ABG pH POC ABG pCO2 POC ABG pO2 ABG pO2 ABG HCO3 ABG Base Excess ABG Hemoglobin Oxyhemoglobin Sodium Potassium Chloride Carbon Dioxide BUN Creatinine Glucose POC Glucose 258 H 239 H 176 H Lactic Acid Calcium AST Alkaline Phosphatase Albumin Urine WBC (Auto) 02/07/17 02/08/17 02/08/17 23:59 06:15 11:55 WBC RBC Hgb Hct MCV MCH RDW Plt Count Lymph % (Auto) [place] % (Auto) Eos % (Auto) Seg Neutrophils % Seg Neuts % (Manual) Lymphocytes % (Manual) Seg Neutrophils # Seg Neutrophils # Man Lymphocytes # (Manual) POC ABG pH ABG pH POC ABG pCO2 POC ABG pO2 ABG pO2 ABG HCO3 ABG Base Excess ABG Hemoglobin Oxyhemoglobin Sodium Potassium Chloride Carbon Dioxide BUN Creatinine Glucose POC Glucose 186 H 195 H 129 H Lactic Acid Calcium AST Alkaline Phosphatase Albumin Urine WBC (Auto) 02/08/17 02/08/17 02/09/17 16:55 23:51 05:51 WBC RBC Hgb Hct MCV MCH RDW Plt Count Lymph % (Auto) [place] % (Auto) Eos % (Auto) Seg Neutrophils % Seg Neuts % (Manual) Lymphocytes % (Manual) Seg Neutrophils # Seg Neutrophils # Man Lymphocytes # (Manual) POC ABG pH ABG pH POC ABG pCO2 POC ABG pO2 ABG pO2 ABG HCO3 ABG Base Excess ABG Hemoglobin Oxyhemoglobin Sodium Potassium Chloride Carbon Dioxide BUN Creatinine Glucose POC Glucose 246 H 262 H 295 H Lactic Acid Calcium AST Alkaline Phosphatase Albumin Urine WBC (Auto) 02/09/17 02/09/17 02/09/17 07:24 07:24 12:08 WBC 14.7 H RBC 3.39 L Hgb 8.9 L Hct 26.4 L MCV 78 L MCH 26 L RDW 18.4 H Plt Count 670 H Lymph % (Auto) 11.8 L [place] % (Auto) Eos % (Auto) Seg Neutrophils % 81.2 H Seg Neuts % (Manual) Lymphocytes % (Manual) Seg Neutrophils # 11.9 H Seg Neutrophils # Man Lymphocytes # (Manual) POC ABG pH ABG pH POC ABG pCO2 POC ABG pO2 ABG pO2 ABG HCO3 ABG Base Excess ABG Hemoglobin Oxyhemoglobin Sodium Potassium Chloride 95.5 L Carbon Dioxide BUN 52 H Creatinine Glucose 277 H POC Glucose 236 H Lactic Acid Calcium AST Alkaline Phosphatase Albumin Urine WBC (Auto) 02/09/17 02/10/17 02/10/17 18:39 00:01 05:44 WBC RBC Hgb Hct MCV MCH RDW Plt Count Lymph % (Auto) [place] % (Auto) Eos % (Auto) Seg Neutrophils % Seg Neuts % (Manual) Lymphocytes % (Manual) Seg Neutrophils # Seg Neutrophils # Man Lymphocytes # (Manual) POC ABG pH ABG pH POC ABG pCO2 POC ABG pO2 ABG pO2 ABG HCO3 ABG Base Excess ABG Hemoglobin Oxyhemoglobin Sodium Potassium Chloride Carbon Dioxide BUN Creatinine Glucose POC Glucose 151 H 210 H 201 H Lactic Acid Calcium AST Alkaline Phosphatase Albumin Urine WBC (Auto) 02/10/17 02/10/17 02/10/17 11:21 17:29 23:56 WBC RBC Hgb Hct MCV MCH RDW Plt Count Lymph % (Auto) [place] % (Auto) Eos % (Auto) Seg Neutrophils % Seg Neuts % (Manual) Lymphocytes % (Manual) Seg Neutrophils # Seg Neutrophils # Man Lymphocytes # (Manual) POC ABG pH ABG pH POC ABG pCO2 POC ABG pO2 ABG pO2 ABG HCO3 ABG Base Excess ABG Hemoglobin Oxyhemoglobin Sodium Potassium Chloride Carbon Dioxide BUN Creatinine Glucose POC Glucose 233 H 167 H 191 H Lactic Acid Calcium AST Alkaline Phosphatase Albumin Urine WBC (Auto) 02/11/17 02/11/17 02/11/17 05:24 12:25 17:03 WBC RBC Hgb Hct MCV MCH RDW Plt Count Lymph % (Auto) [place] % (Auto) Eos % (Auto) Seg Neutrophils % Seg Neuts % (Manual) Lymphocytes % (Manual) Seg Neutrophils # Seg Neutrophils # Man Lymphocytes # (Manual) POC ABG pH ABG pH POC ABG pCO2 POC ABG pO2 ABG pO2 ABG HCO3 ABG Base Excess ABG Hemoglobin Oxyhemoglobin Sodium Potassium Chloride Carbon Dioxide BUN Creatinine Glucose POC Glucose 135 H 275 H 172 H Lactic Acid Calcium AST Alkaline Phosphatase Albumin Urine WBC (Auto) 02/11/17 02/12/17 02/12/17 23:59 05:39 11:33 WBC RBC Hgb Hct MCV MCH RDW Plt Count Lymph % (Auto) [place] % (Auto) Eos % (Auto) Seg Neutrophils % Seg Neuts % (Manual) Lymphocytes % (Manual) Seg Neutrophils # Seg Neutrophils # Man Lymphocytes # (Manual) POC ABG pH ABG pH POC ABG pCO2 POC ABG pO2 ABG pO2 ABG HCO3 ABG Base Excess ABG Hemoglobin Oxyhemoglobin Sodium Potassium Chloride Carbon Dioxide BUN Creatinine Glucose POC Glucose 215 H 261 H 217 H Lactic Acid Calcium AST Alkaline Phosphatase Albumin Urine WBC (Auto) 02/12/17 02/13/17 02/13/17 17:55 00:25 06:46 WBC RBC Hgb Hct MCV MCH RDW Plt Count Lymph % (Auto) [place] % (Auto) Eos % (Auto) Seg Neutrophils % Seg Neuts % (Manual) Lymphocytes % (Manual) Seg Neutrophils # Seg Neutrophils # Man Lymphocytes # (Manual) POC ABG pH ABG pH POC ABG pCO2 POC ABG pO2 ABG pO2 ABG HCO3 ABG Base Excess ABG Hemoglobin Oxyhemoglobin Sodium Potassium Chloride Carbon Dioxide BUN Creatinine Glucose POC Glucose 172 H 207 H 219 H Lactic Acid Calcium AST Alkaline Phosphatase Albumin Urine WBC (Auto) 02/13/17 02/13/17 02/13/17 11:26 17:12 23:44 WBC RBC Hgb Hct MCV MCH RDW Plt Count Lymph % (Auto) [place] % (Auto) Eos % (Auto) Seg Neutrophils % Seg Neuts % (Manual) Lymphocytes % (Manual) Seg Neutrophils # Seg Neutrophils # Man Lymphocytes # (Manual) POC ABG pH ABG pH POC ABG pCO2 POC ABG pO2 ABG pO2 ABG HCO3 ABG Base Excess ABG Hemoglobin Oxyhemoglobin Sodium Potassium Chloride Carbon Dioxide BUN Creatinine Glucose POC Glucose 231 H 190 H 256 H Lactic Acid Calcium AST Alkaline Phosphatase Albumin Urine WBC (Auto) 02/14/17 02/14/17 02/14/17 05:44 12:21 17:57 WBC RBC Hgb Hct MCV MCH RDW Plt Count Lymph % (Auto) [place] % (Auto) Eos % (Auto) Seg Neutrophils % Seg Neuts % (Manual) Lymphocytes % (Manual) Seg Neutrophils # Seg Neutrophils # Man Lymphocytes # (Manual) POC ABG pH ABG pH POC ABG pCO2 POC ABG pO2 ABG pO2 ABG HCO3 ABG Base Excess ABG Hemoglobin Oxyhemoglobin Sodium Potassium Chloride Carbon Dioxide BUN Creatinine Glucose POC Glucose 184 H 233 H 155 H Lactic Acid Calcium AST Alkaline Phosphatase Albumin Urine WBC (Auto) 02/14/17 02/15/17 02/15/17 23:18 05:33 11:45 WBC RBC Hgb Hct MCV MCH RDW Plt Count Lymph % (Auto) [place] % (Auto) Eos % (Auto) Seg Neutrophils % Seg Neuts % (Manual) Lymphocytes % (Manual) Seg Neutrophils # Seg Neutrophils # Man Lymphocytes # (Manual) POC ABG pH ABG pH POC ABG pCO2 POC ABG pO2 ABG pO2 ABG HCO3 ABG Base Excess ABG Hemoglobin Oxyhemoglobin Sodium Potassium Chloride Carbon Dioxide BUN Creatinine Glucose POC Glucose 165 H 239 H 130 H Lactic Acid Calcium AST Alkaline Phosphatase Albumin Urine WBC (Auto) 02/15/17 02/16/17 02/16/17 17:20 00:14 05:09 WBC RBC Hgb Hct MCV MCH RDW Plt Count Lymph % (Auto) [place] % (Auto) Eos % (Auto) Seg Neutrophils % Seg Neuts % (Manual) Lymphocytes % (Manual) Seg Neutrophils # Seg Neutrophils # Man Lymphocytes # (Manual) POC ABG pH ABG pH POC ABG pCO2 POC ABG pO2 ABG pO2 ABG HCO3 ABG Base Excess ABG Hemoglobin Oxyhemoglobin Sodium Potassium Chloride Carbon Dioxide BUN Creatinine Glucose POC Glucose 189 H 197 H 226 H Lactic Acid Calcium AST Alkaline Phosphatase Albumin Urine WBC (Auto) 02/16/17 02/16/17 02/16/17 12:31 16:35 23:49 WBC RBC Hgb Hct MCV MCH RDW Plt Count Lymph % (Auto) [place] % (Auto) Eos % (Auto) Seg Neutrophils % Seg Neuts % (Manual) Lymphocytes % (Manual) Seg Neutrophils # Seg Neutrophils # Man Lymphocytes # (Manual) POC ABG pH ABG pH POC ABG pCO2 POC ABG pO2 ABG pO2 ABG HCO3 ABG Base Excess ABG Hemoglobin Oxyhemoglobin Sodium Potassium Chloride Carbon Dioxide BUN Creatinine Glucose POC Glucose 178 H 174 H 62 L Lactic Acid Calcium AST Alkaline Phosphatase Albumin Urine WBC (Auto) 02/17/17 02/17/17 02/17/17 05:37 11:39 17:02 WBC RBC Hgb Hct MCV MCH RDW Plt Count Lymph % (Auto) [place] % (Auto) Eos % (Auto) Seg Neutrophils % Seg Neuts % (Manual) Lymphocytes % (Manual) Seg Neutrophils # Seg Neutrophils # Man Lymphocytes # (Manual) POC ABG pH ABG pH POC ABG pCO2 POC ABG pO2 ABG pO2 ABG HCO3 ABG Base Excess ABG Hemoglobin Oxyhemoglobin Sodium Potassium Chloride Carbon Dioxide BUN Creatinine Glucose POC Glucose 153 H 231 H 112 H Lactic Acid Calcium AST Alkaline Phosphatase Albumin Urine WBC (Auto) 11/12/2602/18/17 02/19/17 22:24 15:34 05:09 WBC RBC Hgb Hct MCV MCH RDW Plt Count Lymph % (Auto) [place] % (Auto) Eos % (Auto) Seg Neutrophils % Seg Neuts % (Manual) Lymphocytes % (Manual) Seg Neutrophils # Seg Neutrophils # Man Lymphocytes # (Manual) POC ABG pH ABG pH POC ABG pCO2 POC ABG pO2 ABG pO2 ABG HCO3 ABG Base Excess ABG Hemoglobin Oxyhemoglobin Sodium Potassium Chloride Carbon Dioxide BUN Creatinine Glucose POC Glucose 116 H 215 H 218 H Lactic Acid Calcium AST Alkaline Phosphatase Albumin Urine WBC (Auto) 02/19/17 02/19/17 02/19/17 07:57 14:49 22:10 WBC RBC Hgb Hct MCV MCH RDW Plt Count Lymph % (Auto) [place] % (Auto) Eos % (Auto) Seg Neutrophils % Seg Neuts % (Manual) Lymphocytes % (Manual) Seg Neutrophils # Seg Neutrophils # Man Lymphocytes # (Manual) POC ABG pH ABG pH POC ABG pCO2 POC ABG pO2 ABG pO2 ABG HCO3 ABG Base Excess ABG Hemoglobin Oxyhemoglobin Sodium Potassium Chloride Carbon Dioxide BUN Creatinine Glucose POC Glucose 283 H 290 H 169 H Lactic Acid Calcium AST Alkaline Phosphatase Albumin Urine WBC (Auto) 02/20/17 02/20/17 02/20/17 05:10 15:05 21:52 WBC RBC Hgb Hct MCV MCH RDW Plt Count Lymph % (Auto) [place] % (Auto) Eos % (Auto) Seg Neutrophils % Seg Neuts % (Manual) Lymphocytes % (Manual) Seg Neutrophils # Seg Neutrophils # Man Lymphocytes # (Manual) POC ABG pH ABG pH POC ABG pCO2 POC ABG pO2 ABG pO2 ABG HCO3 ABG Base Excess ABG Hemoglobin Oxyhemoglobin Sodium Potassium Chloride Carbon Dioxide BUN Creatinine Glucose POC Glucose 209 H 172 H 209 H Lactic Acid Calcium AST Alkaline Phosphatase Albumin Urine WBC (Auto) 02/21/17 02/21/17 02/21/17 02:00 04:54 14:43 WBC RBC Hgb Hct MCV MCH RDW Plt Count Lymph % (Auto) [place] % (Auto) Eos % (Auto) Seg Neutrophils % Seg Neuts % (Manual) Lymphocytes % (Manual) Seg Neutrophils # Seg Neutrophils # Man Lymphocytes # (Manual) POC ABG pH ABG pH POC ABG pCO2 POC ABG pO2 ABG pO2 ABG HCO3 ABG Base Excess ABG Hemoglobin Oxyhemoglobin Sodium Potassium Chloride Carbon Dioxide BUN Creatinine Glucose POC Glucose 216 H 227 H 290 H Lactic Acid Calcium AST Alkaline Phosphatase Albumin Urine WBC (Auto) 02/21/17 02/21/17 02/22/17 17:47 22:02 04:52 WBC RBC Hgb Hct MCV MCH RDW Plt Count Lymph % (Auto) [place] % (Auto) Eos % (Auto) Seg Neutrophils % Seg Neuts % (Manual) Lymphocytes % (Manual) Seg Neutrophils # Seg Neutrophils # Man Lymphocytes # (Manual) POC ABG pH ABG pH POC ABG pCO2 POC ABG pO2 ABG pO2 ABG HCO3 ABG Base Excess ABG Hemoglobin Oxyhemoglobin Sodium Potassium Chloride Carbon Dioxide BUN Creatinine Glucose POC Glucose 220 H 246 H 212 H Lactic Acid Calcium AST Alkaline Phosphatase Albumin Urine WBC (Auto)
--- NOTE | 2017-02-22 15:24 | Progress Note ---
Assessment and Plan Assessment and plan: --Acute hypoxic respiratory failure, unable to wean Intubated on ventilatory support very poor prognosis not a candidate for Trach and PEG, --Metabolic encephalopathy /Hypoglycemic brain injury --Persistent Vegetative state --Hypothyroidism; continue Synthroid --DO NOT RESUSCITATE and Comfort Care by ethics committee. -- Awaiting court ordered /state guardianship Continue comfort care History Interval history: Patient seen and examined medical records reviewed No new events reported by nursing staff Hospitalist Physical - Constitutional Vitals: Temp Pulse Resp BP Pulse Ox 99.3 F 63 16 150/97 99 02/22/17 04:00 02/22/17 12:00 02/22/17 12:00 02/22/17 12:00 02/22/17 12:00 General appearance: Present: no acute distress, cachectic, disheveled, other ( unresponsive) - EENT Eyes: Present: PERRL, EOM intact - Neck Neck: Present: supple, normal ROM - Respiratory Respiratory effort: normal Respiratory: bilateral: diminished, rhonchi, negative: rales, wheezing - Cardiovascular Rhythm: regular Heart Sounds: Present: S1 & S2 - Extremities Extremities: no ischemia, No edema - Integumentary Integumentary: Present: clear, warm - Psychiatric Psychiatric: other (unresponsive) - Neurologic Neurologic: other (unresponsive) Results - Labs CBC & Chem 7: 02/09/17 07:24 02/09/17 07:24 Labs: Laboratory Last Values WBC 14.7 K/mm3 (4.5-11.0) H 02/09/17 07:24 RBC 3.39 M/mm3 (3.65-5.03) L 02/09/17 07:24 Hgb 8.9 gm/dl (11.8-15.2) L 02/09/17 07:24 Hct 26.4 % (35.5-45.6) L 02/09/17 07:24 MCV 78 fl (84-94) L 02/09/17 07:24 MCH 26 pg (28-32) L 02/09/17 07:24 MCHC 34 % (32-34) 02/09/17 07:24 RDW 18.4 % (13.2-15.2) H 02/09/17 07:24 Plt Count 670 K/mm3 (140-440) H 02/09/17 07:24 Lymph % (Auto) 11.8 % (13.4-35.0) L 02/09/17 07:24 Smyth % (Auto) 4.7 % (0.0-7.3) 02/09/17 07:24 Eos % (Auto) 1.9 % (0.0-4.3) 02/09/17 07:24 Baso % (Auto) 0.4 % (0.0-1.8) 02/09/17 07:24 Lymph # 1.7 K/mm3 (1.2-5.4) 02/09/17 07:24 Smyth # 0.7 K/mm3 (0.0-0.8) 02/09/17 07:24 Eos # 0.3 K/mm3 (0.0-0.4) 02/09/17 07:24 Baso # 0.1 K/mm3 (0.0-0.1) 02/09/17 07:24 Add Manual Diff Complete 01/10/17 04:30 Total Counted 100 01/10/17 04:30 Seg Neutrophils % 81.2 % (40.0-70.0) H 02/09/17 07:24 Seg Neuts % (Manual) 88.0 % (40.0-70.0) H 01/10/17 04:30 Band Neutrophils % 7.0 % 01/10/17 04:30 Lymphocytes % (Manual) 4.0 % (13.4-35.0) L 01/10/17 04:30 Reactive Lymphs % (Man) 0 % 01/10/17 04:30 Monocytes % (Manual) 1.0 % (0.0-7.3) 01/10/17 04:30 Eosinophils % (Manual) 0 % (0.0-4.3) 01/10/17 04:30 Basophils % (Manual) 0 % (0.0-1.8) 01/10/17 04:30 Metamyelocytes % 0 % 01/10/17 04:30 Myelocytes % 0 % 01/10/17 04:30 Promyelocytes % 0 % 01/10/17 04:30 Blast Cells % 0 % 01/10/17 04:30 Nucleated RBC % Not Reportable 01/10/17 04:30 Seg Neutrophils # 11.9 K/mm3 (1.8-7.7) H 02/09/17 07:24 Seg Neutrophils # Man 21.2 K/mm3 (1.8-7.7) H 01/10/17 04:30 Band Neutrophils # 1.7 K/mm3 01/10/17 04:30 Lymphocytes # (Manual) 1.0 K/mm3 (1.2-5.4) L 01/10/17 04:30 Abs React Lymphs (Man) 0.0 K/mm3 01/10/17 04:30 Monocytes # (Manual) 0.2 K/mm3 (0.0-0.8) 01/10/17 04:30 Eosinophils # (Manual) 0.0 K/mm3 (0.0-0.4) 01/10/17 04:30 Basophils # (Manual) 0.0 K/mm3 (0.0-0.1) 01/10/17 04:30 Metamyelocytes # 0.0 K/mm3 01/10/17 04:30 Myelocytes # 0.0 K/mm3 01/10/17 04:30 Promyelocytes # 0.0 K/mm3 01/10/17 04:30 Blast Cells # 0.0 K/mm3 01/10/17 04:30 WBC Morphology Not Reportable 01/10/17 04:30 Hypersegmented Neuts Not Reportable 01/10/17 04:30 Hyposegmented Neuts Not Reportable 01/10/17 04:30 Hypogranular Neuts Not Reportable 01/10/17 04:30 Smudge Cells Not Reportable 01/10/17 04:30 Toxic Granulation Not Reportable 01/10/17 04:30 Toxic Vacuolation Not Reportable 01/10/17 04:30 Dohle Bodies Not Reportable 01/10/17 04:30 Pelger-Huet Anomaly Not Reportable 01/10/17 04:30 Shelby Rods Not Reportable 01/10/17 04:30 Platelet Estimate Consistent w auto 01/10/17 04:30 Clumped Platelets Not Reportable 01/10/17 04:30 Plt Clumps, EDTA Not Reportable 01/10/17 04:30 Large Platelets Not Reportable 01/10/17 04:30 Giant Platelets Not Reportable 01/10/17 04:30 Platelet Satelliting Not Reportable 01/10/17 04:30 Plt Morphology Comment Not Reportable 01/10/17 04:30 RBC Morphology Not Reportable 01/10/17 04:30 Dimorphic RBCs Not Reportable 01/10/17 04:30 Polychromasia Not Reportable 01/10/17 04:30 Hypochromasia 1+ 01/10/17 04:30 Poikilocytosis Not Reportable 01/10/17 04:30 Anisocytosis Not Reportable 01/10/17 04:30 Microcytosis Not Reportable 01/10/17 04:30 Macrocytosis Not Reportable 01/10/17 04:30 Spherocytes Not Reportable 01/10/17 04:30 Pappenheimer Bodies Not Reportable 01/10/17 04:30 Sickle Cells Not Reportable 01/10/17 04:30 Target Cells Not Reportable 01/10/17 04:30 Tear Drop Cells Not Reportable 01/10/17 04:30 Ovalocytes Not Reportable 01/10/17 04:30 Helmet Cells Not Reportable 01/10/17 04:30 Jarrett-Manito Bodies Not Reportable 01/10/17 04:30 Luna Rings Not Reportable 01/10/17 04:30 Hayden Cells Not Reportable 01/10/17 04:30 Bite Cells Not Reportable 01/10/17 04:30 Crenated Cell Not Reportable 01/10/17 04:30 Elliptocytes Not Reportable 01/10/17 04:30 Acanthocytes (Spur) Not Reportable 01/10/17 04:30 Rouleaux Not Reportable 01/10/17 04:30 Hemoglobin C Crystals Not Reportable 01/10/17 04:30 Schistocytes Not Reportable 01/10/17 04:30 Malaria parasites Not Reportable 01/10/17 04:30 Kyle Bodies Not Reportable 01/10/17 04:30 Hem Pathologist Commnt No 01/10/17 04:30 PT 14.1 Sec. (12.2-14.9) 01/17/17 04:10 INR 1.04 (0.87-1.13) 01/17/17 04:10 APTT 36.6 Sec. (24.2-36.6) 01/17/17 04:10 POC ABG pH 7.442 (7.35-7.45) 01/31/17 18:55 ABG pH 7.420 pH Units (7.350-7.450) 01/17/17 04:35 POC ABG pCO2 32.8 (35-45) L 01/31/17 18:55 ABG pCO2 34.5 mm Hg 01/17/17 04:35 POC ABG pO2 82 (80-105) 01/31/17 18:55 ABG pO2 160.3 mm Hg (80.0-90.0) H 01/17/17 04:35 POC ABG HCO3 22.4 01/31/17 18:55 ABG HCO3 21.9 mmol/L (20.0-26.0) 01/17/17 04:35 POC ABG Total CO2 23 01/31/17 18:55 POC ABG O2 Sat 97 01/31/17 18:55 ABG O2 Saturation 99.0 % (95.0-99.0) 01/17/17 04:35 ABG O2 Content 11.1 (0.0-44) 01/17/17 04:35 POC ABG Base Excess -2 01/31/17 18:55 ABG Base Excess -2.3 mmol/L (-2.0-3.0) L 01/17/17 04:35 ABG Hemoglobin 7.9 gm/dl (14.0-18.0) L 01/17/17 04:35 ABG Carboxyhemoglobin 1.5 % (0.0-5.0) 01/17/17 04:35 ABG Methemoglobin 0.5 % (0.0-1.5) 01/17/17 04:35 VBG pH 7.284 (7.320-7.420) L 01/09/17 10:16 Oxyhemoglobin 97.1 % (95.0-99.0) 01/17/17 04:35 FiO2 25 % 01/31/17 18:55 Sodium 137 mmol/L (137-145) 02/09/17 07:24 Potassium 4.9 mmol/L (3.6-5.0) 02/09/17 07:24 Chloride 95.5 mmol/L (98-107) L 02/09/17 07:24 Carbon Dioxide 29 mmol/L (22-30) 02/09/17 07:24 Anion Gap 17 mmol/L 02/09/17 07:24 BUN 52 mg/dL (9-20) H 02/09/17 07:24 Creatinine 0.8 mg/dL (0.8-1.5) 02/09/17 07:24 Estimated GFR > 60 ml/min 02/09/17 07:24 BUN/Creatinine Ratio 65 % 02/09/17 07:24 Glucose 277 mg/dL (75-100) H 02/09/17 07:24 POC Glucose 212 (70-105) H 02/22/17 04:52 Lactic Acid 0.80 mmol/L (0.7-2.0) 01/30/17 11:49 Calcium 9.4 mg/dL (8.4-10.2) 02/09/17 07:24 Phosphorus 3.60 mg/dL (2.5-4.5) 01/22/17 04:00 Magnesium 2.10 mg/dL (1.7-2.3) 01/22/17 04:00 Total Bilirubin 0.30 mg/dL (0.1-1.2) 01/22/17 04:00 AST 44 units/L (5-40) H 01/22/17 04:00 ALT 23 units/L (7-56) 01/22/17 04:00 Alkaline Phosphatase 379 units/L (35-129) H 01/22/17 04:00 Ammonia 35.0 umol/L (25-60) 01/09/17 10:16 Total Creatine Kinase 135 units/L (55-170) 01/09/17 10:16 CK-MB (CK-2) 7.1 ng/mL (0.0-4.0) H 01/09/17 10:16 CK-MB (CK-2) Rel Index 5.2 (0-4) H 01/09/17 10:16 Troponin T < 0.010 ng/mL (0.00-0.029) 01/09/17 10:16 NT-Pro-B Natriuret Pep 602.9 pg/mL (0-900) 01/09/17 10:16 Total Protein 7.9 g/dL (6.3-8.2) 01/22/17 04:00 Albumin 2.7 g/dL (3.9-5) L 01/22/17 04:00 Albumin/Globulin Ratio 0.5 % 01/22/17 04:00 TSH 52.800 mlU/mL (0.270-4.200) H 01/09/17 10:16 Free T4 0.78 ng/dL (0.76-1.46) 01/09/17 10:16 Total Cortisol 54.8 mcg/dL () 01/09/17 16:19 Urine Color Yellow (Yellow) 01/28/17 17:52 Urine Turbidity Clear (Clear) 01/28/17 17:52 Urine pH 6.0 (5.0-7.0) 01/28/17 17:52 Ur Specific [place] 1.016 (1.003-1.030) 01/28/17 17:52 Urine Protein 100 mg/dl mg/dL (Negative) 01/28/17 17:52 Urine Glucose (UA) >=500 mg/dL (Negative) 01/28/17 17:52 Urine Ketones Neg mg/dL (Negative) 01/28/17 17:52 Urine Blood Sm (Negative) 01/28/17 17:52 Urine Nitrite Neg (Negative) 01/28/17 17:52 Urine Bilirubin Neg (Negative) 01/28/17 17:52 Urine Urobilinogen < 2.0 mg/dL (<2.0) 01/28/17 17:52 Ur Leukocyte Esterase Lg (Negative) 01/28/17 17:52 Urine WBC (Auto) > 182.0 /HPF (0.0-6.0) H 01/28/17 17:52 Urine RBC (Auto) 113.0 /HPF (0.0-6.0) 01/28/17 17:52 Urine Bacteria (Auto) 2+ /HPF (Negative) 01/28/17 17:52 Urine WBC Clumps 3+ /HPF 01/28/17 17:52 Urine Mucus Few /HPF 01/14/17 14:07 Urine Yeast (Budding) 3+ /HPF 01/14/17 14:07 Salicylates < 0.3 mg/dL (2.8-20.0) L 01/09/17 10:16 Urine Opiates Screen Presumptive negative 01/09/17 10:23 Urine Methadone Screen Presumptive negative 01/09/17 10:23 Acetaminophen < 15.0 ug/mL (10.0-30.0) 01/09/17 10:16 Ur Barbiturates Screen Presumptive negative 01/09/17 10:23 Ur Phencyclidine Scrn Presumptive negative 01/09/17 10:23 Ur Amphetamines Screen Presumptive negative 01/09/17 10:23 U Benzodiazepines Scrn Presumptive negative 01/09/17 10:23 Urine Cocaine Screen Presumptive negative 01/09/17 10:23 U Marijuana (THC) Screen Presumptive negative 01/09/17 10:23 Drugs of Abuse Note Disclamer 01/09/17 10:23 Plasma/Serum Alcohol < 0.01 gm% (0-0.07) 01/09/17 10:16
[2017-02-23] MEDS: SYNTHROID PO SCH (05:26)
[2017-02-23] MEDS: NOVOLOG SUB-Q SCH ×3 (06:32→22:30)
[2017-02-23] MEDS: NORMODYNE PO SCH ×2 (10:00→22:31)
[2017-02-23] MEDS: PEPCID PO SCH ×2 (10:00→22:31)
[2017-02-23] MEDS: HEPARIN SUB-Q SCH ×2 (10:00→22:32)
[2017-02-23] MEDS: LEVEMIR (NF) SUB-Q SCH (10:00)
--- NOTE | 2017-02-23 10:57 | Progress Note ---
Assessment and Plan Acute respiratory failure, status unchanged Fever. None today Hypoglycemia/hypothermia - Metabolic encephalopathy. Severe. 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 Resolved Recommendations Currently the patient is DO NOT RESUSCITATE. Waiting for final decision from court order regarding current support versus termination of care Continue PSV/CPAP trials Poor prognosis; complex patient. Discussed status with IMS in detail. Critical care time with a 31 minutes of [id number] evaluation and coordination of care Subjective Date of service: 02/23/17 Principal diagnosis: Acute respiratory failure,encephalopathy Interval history: Intubated. off sedation. Nonresponsive Objective Vital Signs - 12hr 02/22/17 02/23/17 02/23/17 23:03 00:00 00:16 Temperature 98.1 F Pulse Rate 65 63 Respiratory 12 12 Rate Blood Pressure 154/93 152/90 O2 Sat by Pulse 100 100 Oximetry 02/23/17 02/23/17 02/23/17 02:00 03:57 04:00 Temperature 98.0 F Pulse Rate 63 67 Respiratory 15 16 Rate Blood Pressure 152/90 152/90 O2 Sat by Pulse 100 100 Oximetry 02/23/17 02/23/17 02/23/17 06:00 07:48 08:00 Temperature 99.2 F Pulse Rate 65 70 Respiratory 14 Rate Blood Pressure 152/90 152/90 O2 Sat by Pulse 100 100 100 Oximetry Constitutional: comatose, other (orally intubated, on vent support) Eyes: non-icteric ENT: oropharynx moist Neck: supple Effort: normal Ascultation: Bilateral: clear, diminished breath sounds Cardiovascular: regular rate and rhythm Gastrointestinal: normoactive bowel sounds, soft, non-tender, non-distended Integumentary: normal Extremities: no cyanosis, no edema, pink and warm Neurologic: other (unresponsive except for nonfocal response to pain stimulation ) Psychiatric: other (unable to obtain) CBC and BMP: 02/09/17 07:24 02/09/17 07:24 ABG, PT/INR, D-dimer: ABG POC ABG pH 7.442 (7.35-7.45) 01/31/17 18:55 ABG pH 7.420 pH Units (7.350-7.450) 01/17/17 04:35 POC ABG pCO2 32.8 (35-45) L 01/31/17 18:55 ABG pCO2 34.5 mm Hg 01/17/17 04:35 POC ABG pO2 82 (80-105) 01/31/17 18:55 ABG pO2 160.3 mm Hg (80.0-90.0) H 01/17/17 04:35 POC ABG HCO3 22.4 01/31/17 18:55 POC ABG Total CO2 23 01/31/17 18:55 POC ABG O2 Sat 97 01/31/17 18:55 ABG O2 Saturation 99.0 % (95.0-99.0) 01/17/17 04:35 PT/INR, D-dimer PT 14.1 Sec. (12.2-14.9) 01/17/17 04:10 INR 1.04 (0.87-1.13) 01/17/17 04:10 Abnormal lab findings: Abnormal Labs 01/09/17 01/09/17 01/09/17 12:49 13:13 14:21 WBC RBC Hgb Hct MCV MCH RDW Plt Count Lymph % (Auto) [place] % (Auto) Eos % (Auto) Seg Neutrophils % Seg Neuts % (Manual) Lymphocytes % (Manual) Seg Neutrophils # Seg Neutrophils # Man Lymphocytes # (Manual) POC ABG pH ABG pH POC ABG pCO2 POC ABG pO2 ABG pO2 ABG HCO3 ABG Base Excess ABG Hemoglobin Oxyhemoglobin Sodium Potassium Chloride Carbon Dioxide BUN Creatinine Glucose POC Glucose < 40 L 128 H 65 L Lactic Acid Calcium AST Alkaline Phosphatase Albumin Urine WBC (Auto) 01/09/17 01/09/17 01/09/17 15:09 16:28 17:14 WBC RBC Hgb Hct MCV MCH RDW Plt Count Lymph % (Auto) [place] % (Auto) Eos % (Auto) Seg Neutrophils % Seg Neuts % (Manual) Lymphocytes % (Manual) Seg Neutrophils # Seg Neutrophils # Man Lymphocytes # (Manual) POC ABG pH ABG pH POC ABG pCO2 POC ABG pO2 ABG pO2 ABG HCO3 ABG Base Excess ABG Hemoglobin Oxyhemoglobin Sodium Potassium Chloride Carbon Dioxide BUN Creatinine Glucose POC Glucose 120 H 44 L 112 H Lactic Acid Calcium AST Alkaline Phosphatase Albumin Urine WBC (Auto) 01/10/17 01/10/17 01/10/17 04:30 04:30 05:41 WBC 24.1 H RBC 3.38 L Hgb 8.5 L Hct 26.0 L MCV 77 L MCH 25 L RDW 17.9 H Plt Count 474 H Lymph % (Auto) [place] % (Auto) Eos % (Auto) Seg Neutrophils % Seg Neuts % (Manual) 88.0 H Lymphocytes % (Manual) 4.0 L Seg Neutrophils # Seg Neutrophils # Man 21.2 H Lymphocytes # (Manual) 1.0 L POC ABG pH ABG pH POC ABG pCO2 POC ABG pO2 ABG pO2 ABG HCO3 ABG Base Excess ABG Hemoglobin Oxyhemoglobin Sodium Potassium Chloride Carbon Dioxide 17 L BUN 27 H Creatinine Glucose POC Glucose 68 L Lactic Acid Calcium 7.5 L AST Alkaline Phosphatase Albumin Urine WBC (Auto) 01/10/17 01/10/17 01/10/17 05:45 07:47 10:50 WBC RBC Hgb Hct MCV MCH RDW Plt Count Lymph % (Auto) [place] % (Auto) Eos % (Auto) Seg Neutrophils % Seg Neuts % (Manual) Lymphocytes % (Manual) Seg Neutrophils # Seg Neutrophils # Man Lymphocytes # (Manual) POC ABG pH ABG pH POC ABG pCO2 26.6 L POC ABG pO2 207 H ABG pO2 ABG HCO3 ABG Base Excess ABG Hemoglobin Oxyhemoglobin Sodium Potassium Chloride Carbon Dioxide BUN Creatinine Glucose POC Glucose 148 H 165 H Lactic Acid Calcium AST Alkaline Phosphatase Albumin Urine WBC (Auto) 01/10/17 01/10/17 01/10/17 13:41 20:20 21:39 WBC RBC Hgb Hct MCV MCH RDW Plt Count Lymph % (Auto) [place] % (Auto) Eos % (Auto) Seg Neutrophils % Seg Neuts % (Manual) Lymphocytes % (Manual) Seg Neutrophils # Seg Neutrophils # Man Lymphocytes # (Manual) POC ABG pH ABG pH POC ABG pCO2 POC ABG pO2 ABG pO2 ABG HCO3 ABG Base Excess ABG Hemoglobin Oxyhemoglobin Sodium Potassium Chloride Carbon Dioxide BUN Creatinine Glucose POC Glucose 114 H 150 H 175 H Lactic Acid Calcium AST Alkaline Phosphatase Albumin Urine WBC (Auto) 01/10/17 01/11/17 01/11/17 23:24 00:19 04:06 WBC RBC Hgb Hct MCV MCH RDW Plt Count Lymph % (Auto) [place] % (Auto) Eos % (Auto) Seg Neutrophils % Seg Neuts % (Manual) Lymphocytes % (Manual) Seg Neutrophils # Seg Neutrophils # Man Lymphocytes # (Manual) POC ABG pH 7.463 H ABG pH POC ABG pCO2 26.2 L POC ABG pO2 185 H ABG pO2 ABG HCO3 ABG Base Excess ABG Hemoglobin Oxyhemoglobin Sodium Potassium Chloride Carbon Dioxide BUN Creatinine Glucose POC Glucose 155 H 163 H Lactic Acid Calcium AST Alkaline Phosphatase Albumin Urine WBC (Auto) 01/11/17 01/11/17 01/11/17 05:20 05:20 06:21 WBC 15.2 H RBC 3.40 L Hgb 8.9 L Hct 26.3 L MCV 78 L MCH 26 L RDW 18.6 H Plt Count 462 H Lymph % (Auto) 13.2 L [place] % (Auto) Eos % (Auto) Seg Neutrophils % 80.8 H Seg Neuts % (Manual) Lymphocytes % (Manual) Seg Neutrophils # 12.3 H Seg Neutrophils # Man Lymphocytes # (Manual) POC ABG pH ABG pH POC ABG pCO2 POC ABG pO2 ABG pO2 ABG HCO3 ABG Base Excess ABG Hemoglobin Oxyhemoglobin Sodium Potassium 3.4 L Chloride 111.5 H Carbon Dioxide 17 L BUN Creatinine Glucose 147 H POC Glucose 139 H Lactic Acid Calcium 8.0 L AST Alkaline Phosphatase Albumin Urine WBC (Auto) 01/11/17 01/11/17 01/11/17 07:57 11:46 16:50 WBC RBC Hgb Hct MCV MCH RDW Plt Count Lymph % (Auto) [place] % (Auto) Eos % (Auto) Seg Neutrophils % Seg Neuts % (Manual) Lymphocytes % (Manual) Seg Neutrophils # Seg Neutrophils # Man Lymphocytes # (Manual) POC ABG pH ABG pH POC ABG pCO2 POC ABG pO2 ABG pO2 ABG HCO3 ABG Base Excess ABG Hemoglobin Oxyhemoglobin Sodium Potassium Chloride Carbon Dioxide BUN Creatinine Glucose POC Glucose 188 H 199 H 235 H Lactic Acid Calcium AST Alkaline Phosphatase Albumin Urine WBC (Auto) 01/11/17 01/12/17 01/12/17 23:15 05:02 06:56 WBC RBC Hgb Hct MCV MCH RDW Plt Count Lymph % (Auto) [place] % (Auto) Eos % (Auto) Seg Neutrophils % Seg Neuts % (Manual) Lymphocytes % (Manual) Seg Neutrophils # Seg Neutrophils # Man Lymphocytes # (Manual) POC ABG pH ABG pH POC ABG pCO2 28.0 L POC ABG pO2 178 H ABG pO2 ABG HCO3 ABG Base Excess ABG Hemoglobin Oxyhemoglobin Sodium Potassium Chloride Carbon Dioxide BUN Creatinine Glucose POC Glucose 155 H 119 H Lactic Acid Calcium AST Alkaline Phosphatase Albumin Urine WBC (Auto) 01/12/17 01/13/17 01/13/17 14:50 03:37 03:37 WBC RBC 3.61 L Hgb 9.3 L Hct 28.0 L MCV 78 L MCH 26 L RDW 18.2 H Plt Count Lymph % (Auto) [place] % (Auto) Eos % (Auto) Seg Neutrophils % Seg Neuts % (Manual) Lymphocytes % (Manual) Seg Neutrophils # Seg Neutrophils # Man Lymphocytes # (Manual) POC ABG pH ABG pH POC ABG pCO2 POC ABG pO2 ABG pO2 ABG HCO3 ABG Base Excess ABG Hemoglobin Oxyhemoglobin Sodium Potassium Chloride 112.4 H Carbon Dioxide 19 L BUN Creatinine Glucose 118 H POC Glucose 164 H Lactic Acid Calcium 8.0 L AST Alkaline Phosphatase Albumin Urine WBC (Auto) 01/13/17 01/13/17 01/13/17 04:26 06:15 11:50 WBC RBC Hgb Hct MCV MCH RDW Plt Count Lymph % (Auto) [place] % (Auto) Eos % (Auto) Seg Neutrophils % Seg Neuts % (Manual) Lymphocytes % (Manual) Seg Neutrophils # Seg Neutrophils # Man Lymphocytes # (Manual) POC ABG pH 7.485 H ABG pH POC ABG pCO2 25.4 L POC ABG pO2 73 L ABG pO2 ABG HCO3 ABG Base Excess ABG Hemoglobin Oxyhemoglobin Sodium Potassium Chloride Carbon Dioxide BUN Creatinine Glucose POC Glucose 116 H 171 H Lactic Acid Calcium AST Alkaline Phosphatase Albumin Urine WBC (Auto) 01/13/17 01/14/17 01/14/17 17:31 00:02 04:50 WBC RBC 3.32 L Hgb 8.5 L Hct 26.1 L MCV 79 L MCH 26 L RDW 18.2 H Plt Count Lymph % (Auto) [place] % (Auto) 9.0 H Eos % (Auto) Seg Neutrophils % Seg Neuts % (Manual) Lymphocytes % (Manual) Seg Neutrophils # Seg Neutrophils # Man Lymphocytes # (Manual) POC ABG pH ABG pH POC ABG pCO2 POC ABG pO2 ABG pO2 ABG HCO3 ABG Base Excess ABG Hemoglobin Oxyhemoglobin Sodium Potassium Chloride Carbon Dioxide BUN Creatinine Glucose POC Glucose 203 H 157 H Lactic Acid Calcium AST Alkaline Phosphatase Albumin Urine WBC (Auto) 01/14/17 01/14/17 01/14/17 04:50 05:10 11:27 WBC RBC Hgb Hct MCV MCH RDW Plt Count Lymph % (Auto) [place] % (Auto) Eos % (Auto) Seg Neutrophils % Seg Neuts % (Manual) Lymphocytes % (Manual) Seg Neutrophils # Seg Neutrophils # Man Lymphocytes # (Manual) POC ABG pH ABG pH POC ABG pCO2 POC ABG pO2 ABG pO2 ABG HCO3 ABG Base Excess ABG Hemoglobin Oxyhemoglobin Sodium Potassium Chloride 112.5 H Carbon Dioxide BUN Creatinine Glucose 149 H POC Glucose 176 H 147 H Lactic Acid Calcium 8.1 L AST Alkaline Phosphatase Albumin Urine WBC (Auto) 01/14/17 01/14/17 01/15/17 14:07 16:52 00:04 WBC RBC Hgb Hct MCV MCH RDW Plt Count Lymph % (Auto) [place] % (Auto) Eos % (Auto) Seg Neutrophils % Seg Neuts % (Manual) Lymphocytes % (Manual) Seg Neutrophils # Seg Neutrophils # Man Lymphocytes # (Manual) POC ABG pH ABG pH POC ABG pCO2 POC ABG pO2 ABG pO2 ABG HCO3 ABG Base Excess ABG Hemoglobin Oxyhemoglobin Sodium Potassium Chloride Carbon Dioxide BUN Creatinine Glucose POC Glucose 131 H 193 H Lactic Acid Calcium AST Alkaline Phosphatase Albumin Urine WBC (Auto) 53.0 H 01/15/17 01/15/17 01/15/17 05:26 11:49 17:47 WBC RBC Hgb Hct MCV MCH RDW Plt Count Lymph % (Auto) [place] % (Auto) Eos % (Auto) Seg Neutrophils % Seg Neuts % (Manual) Lymphocytes % (Manual) Seg Neutrophils # Seg Neutrophils # Man Lymphocytes # (Manual) POC ABG pH ABG pH POC ABG pCO2 POC ABG pO2 ABG pO2 ABG HCO3 ABG Base Excess ABG Hemoglobin Oxyhemoglobin Sodium Potassium Chloride Carbon Dioxide BUN Creatinine Glucose POC Glucose 215 H 121 H 211 H Lactic Acid Calcium AST Alkaline Phosphatase Albumin Urine WBC (Auto) 01/15/17 01/16/17 01/16/17 21:33 04:30 05:28 WBC RBC Hgb Hct MCV MCH RDW Plt Count Lymph % (Auto) [place] % (Auto) Eos % (Auto) Seg Neutrophils % Seg Neuts % (Manual) Lymphocytes % (Manual) Seg Neutrophils # Seg Neutrophils # Man Lymphocytes # (Manual) POC ABG pH ABG pH 7.457 H POC ABG pCO2 POC ABG pO2 ABG pO2 55.1 L ABG HCO3 19.4 L ABG Base Excess -4.0 L ABG Hemoglobin 6.8 L Oxyhemoglobin 94.9 L Sodium Potassium Chloride Carbon Dioxide BUN Creatinine Glucose POC Glucose 275 H 271 H Lactic Acid Calcium AST Alkaline Phosphatase Albumin Urine WBC (Auto) 01/16/17 01/16/17 01/17/17 13:45 21:39 04:10 WBC 4.4 L RBC 2.98 L Hgb 7.7 L Hct 23.3 L MCV 78 L MCH 26 L RDW 18.1 H Plt Count Lymph % (Auto) [place] % (Auto) Eos % (Auto) Seg Neutrophils % Seg Neuts % (Manual) Lymphocytes % (Manual) Seg Neutrophils # Seg Neutrophils # Man Lymphocytes # (Manual) POC ABG pH ABG pH POC ABG pCO2 POC ABG pO2 ABG pO2 ABG HCO3 ABG Base Excess ABG Hemoglobin Oxyhemoglobin Sodium Potassium Chloride Carbon Dioxide BUN Creatinine Glucose POC Glucose 236 H 258 H Lactic Acid Calcium AST Alkaline Phosphatase Albumin Urine WBC (Auto) 01/17/17 01/17/17 01/17/17 04:10 04:35 12:23 WBC RBC Hgb Hct MCV MCH RDW Plt Count Lymph % (Auto) [place] % (Auto) Eos % (Auto) Seg Neutrophils % Seg Neuts % (Manual) Lymphocytes % (Manual) Seg Neutrophils # Seg Neutrophils # Man Lymphocytes # (Manual) POC ABG pH ABG pH POC ABG pCO2 POC ABG pO2 ABG pO2 160.3 H ABG HCO3 ABG Base Excess -2.3 L ABG Hemoglobin 7.9 L Oxyhemoglobin Sodium Potassium 3.3 L Chloride 108.7 H Carbon Dioxide 20 L BUN 8 L Creatinine Glucose 202 H POC Glucose 321 H Lactic Acid Calcium 7.6 L AST Alkaline Phosphatase Albumin Urine WBC (Auto) 01/17/17 01/18/17 01/18/17 16:01 05:07 12:09 WBC RBC Hgb Hct MCV MCH RDW Plt Count Lymph % (Auto) [place] % (Auto) Eos % (Auto) Seg Neutrophils % Seg Neuts % (Manual) Lymphocytes % (Manual) Seg Neutrophils # Seg Neutrophils # Man Lymphocytes # (Manual) POC ABG pH ABG pH POC ABG pCO2 POC ABG pO2 ABG pO2 ABG HCO3 ABG Base Excess ABG Hemoglobin Oxyhemoglobin Sodium Potassium Chloride Carbon Dioxide BUN Creatinine Glucose POC Glucose 239 H 155 H 203 H Lactic Acid Calcium AST Alkaline Phosphatase Albumin Urine WBC (Auto) 01/18/17 01/18/17 01/19/17 17:54 23:43 04:28 WBC RBC Hgb Hct MCV MCH RDW Plt Count Lymph % (Auto) [place] % (Auto) Eos % (Auto) Seg Neutrophils % Seg Neuts % (Manual) Lymphocytes % (Manual) Seg Neutrophils # Seg Neutrophils # Man Lymphocytes # (Manual) POC ABG pH ABG pH POC ABG pCO2 POC ABG pO2 ABG pO2 ABG HCO3 ABG Base Excess ABG Hemoglobin Oxyhemoglobin Sodium Potassium Chloride Carbon Dioxide BUN Creatinine Glucose POC Glucose 132 H 125 H 182 H Lactic Acid Calcium AST Alkaline Phosphatase Albumin Urine WBC (Auto) 01/19/17 01/19/17 01/20/17 12:11 17:23 00:12 WBC RBC Hgb Hct MCV MCH RDW Plt Count Lymph % (Auto) [place] % (Auto) Eos % (Auto) Seg Neutrophils % Seg Neuts % (Manual) Lymphocytes % (Manual) Seg Neutrophils # Seg Neutrophils # Man Lymphocytes # (Manual) POC ABG pH ABG pH POC ABG pCO2 POC ABG pO2 ABG pO2 ABG HCO3 ABG Base Excess ABG Hemoglobin Oxyhemoglobin Sodium Potassium Chloride Carbon Dioxide BUN Creatinine Glucose POC Glucose 153 H 66 L 139 H Lactic Acid Calcium AST Alkaline Phosphatase Albumin Urine WBC (Auto) 01/20/17 01/20/17 01/20/17 05:44 11:48 17:42 WBC RBC Hgb Hct MCV MCH RDW Plt Count Lymph % (Auto) [place] % (Auto) Eos % (Auto) Seg Neutrophils % Seg Neuts % (Manual) Lymphocytes % (Manual) Seg Neutrophils # Seg Neutrophils # Man Lymphocytes # (Manual) POC ABG pH ABG pH POC ABG pCO2 POC ABG pO2 ABG pO2 ABG HCO3 ABG Base Excess ABG Hemoglobin Oxyhemoglobin Sodium Potassium Chloride Carbon Dioxide BUN Creatinine Glucose POC Glucose 176 H 218 H 132 H Lactic Acid Calcium AST Alkaline Phosphatase Albumin Urine WBC (Auto) 01/20/17 01/21/17 01/21/17 23:43 05:34 11:17 WBC RBC Hgb Hct MCV MCH RDW Plt Count Lymph % (Auto) [place] % (Auto) Eos % (Auto) Seg Neutrophils % Seg Neuts % (Manual) Lymphocytes % (Manual) Seg Neutrophils # Seg Neutrophils # Man Lymphocytes # (Manual) POC ABG pH ABG pH POC ABG pCO2 POC ABG pO2 ABG pO2 ABG HCO3 ABG Base Excess ABG Hemoglobin Oxyhemoglobin Sodium Potassium Chloride Carbon Dioxide BUN Creatinine Glucose POC Glucose 178 H 106 H 213 H Lactic Acid Calcium AST Alkaline Phosphatase Albumin Urine WBC (Auto) 01/21/17 01/22/17 01/22/17 23:37 04:00 04:00 WBC RBC 3.26 L Hgb 8.3 L Hct 25.5 L MCV 78 L MCH 25 L RDW 17.9 H Plt Count Lymph % (Auto) [place] % (Auto) 7.9 H Eos % (Auto) 6.2 H Seg Neutrophils % Seg Neuts % (Manual) Lymphocytes % (Manual) Seg Neutrophils # Seg Neutrophils # Man Lymphocytes # (Manual) POC ABG pH ABG pH POC ABG pCO2 POC ABG pO2 ABG pO2 ABG HCO3 ABG Base Excess ABG Hemoglobin Oxyhemoglobin Sodium Potassium Chloride 95.5 L Carbon Dioxide 31 H D BUN Creatinine Glucose 134 H POC Glucose 140 H Lactic Acid Calcium AST 44 H Alkaline Phosphatase 379 H Albumin 2.7 L Urine WBC (Auto) 01/22/17 01/22/17 01/22/17 04:58 12:12 18:12 WBC RBC Hgb Hct MCV MCH RDW Plt Count Lymph % (Auto) [place] % (Auto) Eos % (Auto) Seg Neutrophils % Seg Neuts % (Manual) Lymphocytes % (Manual) Seg Neutrophils # Seg Neutrophils # Man Lymphocytes # (Manual) POC ABG pH ABG pH POC ABG pCO2 POC ABG pO2 ABG pO2 ABG HCO3 ABG Base Excess ABG Hemoglobin Oxyhemoglobin Sodium Potassium Chloride Carbon Dioxide BUN Creatinine Glucose POC Glucose 146 H 255 H 182 H Lactic Acid Calcium AST Alkaline Phosphatase Albumin Urine WBC (Auto) 01/22/17 01/23/17 01/23/17 23:39 04:43 12:12 WBC RBC Hgb Hct MCV MCH RDW Plt Count Lymph % (Auto) [place] % (Auto) Eos % (Auto) Seg Neutrophils % Seg Neuts % (Manual) Lymphocytes % (Manual) Seg Neutrophils # Seg Neutrophils # Man Lymphocytes # (Manual) POC ABG pH ABG pH POC ABG pCO2 POC ABG pO2 ABG pO2 ABG HCO3 ABG Base Excess ABG Hemoglobin Oxyhemoglobin Sodium Potassium Chloride Carbon Dioxide BUN Creatinine Glucose POC Glucose 134 H 218 H 128 H Lactic Acid Calcium AST Alkaline Phosphatase Albumin Urine WBC (Auto) 01/23/17 01/24/17 01/24/17 17:36 00:08 05:16 WBC RBC Hgb Hct MCV MCH RDW Plt Count Lymph % (Auto) [place] % (Auto) Eos % (Auto) Seg Neutrophils % Seg Neuts % (Manual) Lymphocytes % (Manual) Seg Neutrophils # Seg Neutrophils # Man Lymphocytes # (Manual) POC ABG pH ABG pH POC ABG pCO2 POC ABG pO2 ABG pO2 ABG HCO3 ABG Base Excess ABG Hemoglobin Oxyhemoglobin Sodium Potassium Chloride Carbon Dioxide BUN Creatinine Glucose POC Glucose 156 H 129 H 169 H Lactic Acid Calcium AST Alkaline Phosphatase Albumin Urine WBC (Auto) 01/24/17 01/24/17 01/24/17 11:40 17:43 23:23 WBC RBC Hgb Hct MCV MCH RDW Plt Count Lymph % (Auto) [place] % (Auto) Eos % (Auto) Seg Neutrophils % Seg Neuts % (Manual) Lymphocytes % (Manual) Seg Neutrophils # Seg Neutrophils # Man Lymphocytes # (Manual) POC ABG pH ABG pH POC ABG pCO2 POC ABG pO2 ABG pO2 ABG HCO3 ABG Base Excess ABG Hemoglobin Oxyhemoglobin Sodium Potassium Chloride Carbon Dioxide BUN Creatinine Glucose POC Glucose 187 H 215 H 222 H Lactic Acid Calcium AST Alkaline Phosphatase Albumin Urine WBC (Auto) 01/25/17 01/25/17 01/25/17 04:56 11:52 17:37 WBC RBC Hgb Hct MCV MCH RDW Plt Count Lymph % (Auto) [place] % (Auto) Eos % (Auto) Seg Neutrophils % Seg Neuts % (Manual) Lymphocytes % (Manual) Seg Neutrophils # Seg Neutrophils # Man Lymphocytes # (Manual) POC ABG pH ABG pH POC ABG pCO2 POC ABG pO2 ABG pO2 ABG HCO3 ABG Base Excess ABG Hemoglobin Oxyhemoglobin Sodium Potassium Chloride Carbon Dioxide BUN Creatinine Glucose POC Glucose 210 H 284 H 218 H Lactic Acid Calcium AST Alkaline Phosphatase Albumin Urine WBC (Auto) 01/26/17 01/26/17 01/26/17 00:02 05:33 12:17 WBC RBC Hgb Hct MCV MCH RDW Plt Count Lymph % (Auto) [place] % (Auto) Eos % (Auto) Seg Neutrophils % Seg Neuts % (Manual) Lymphocytes % (Manual) Seg Neutrophils # Seg Neutrophils # Man Lymphocytes # (Manual) POC ABG pH ABG pH POC ABG pCO2 POC ABG pO2 ABG pO2 ABG HCO3 ABG Base Excess ABG Hemoglobin Oxyhemoglobin Sodium Potassium Chloride Carbon Dioxide BUN Creatinine Glucose POC Glucose 192 H 199 H 227 H Lactic Acid Calcium AST Alkaline Phosphatase Albumin Urine WBC (Auto) 01/26/17 01/26/17 01/27/17 17:50 23:57 05:31 WBC RBC Hgb Hct MCV MCH RDW Plt Count Lymph % (Auto) [place] % (Auto) Eos % (Auto) Seg Neutrophils % Seg Neuts % (Manual) Lymphocytes % (Manual) Seg Neutrophils # Seg Neutrophils # Man Lymphocytes # (Manual) POC ABG pH ABG pH POC ABG pCO2 POC ABG pO2 ABG pO2 ABG HCO3 ABG Base Excess ABG Hemoglobin Oxyhemoglobin Sodium Potassium Chloride Carbon Dioxide BUN Creatinine Glucose POC Glucose 229 H 186 H 285 H Lactic Acid Calcium AST Alkaline Phosphatase Albumin Urine WBC (Auto) 01/27/17 01/27/17 01/27/17 11:42 17:47 23:58 WBC RBC Hgb Hct MCV MCH RDW Plt Count Lymph % (Auto) [place] % (Auto) Eos % (Auto) Seg Neutrophils % Seg Neuts % (Manual) Lymphocytes % (Manual) Seg Neutrophils # Seg Neutrophils # Man Lymphocytes # (Manual) POC ABG pH ABG pH POC ABG pCO2 POC ABG pO2 ABG pO2 ABG HCO3 ABG Base Excess ABG Hemoglobin Oxyhemoglobin Sodium Potassium Chloride Carbon Dioxide BUN Creatinine Glucose POC Glucose 260 H 329 H 225 H Lactic Acid Calcium AST Alkaline Phosphatase Albumin Urine WBC (Auto) 01/27/17 01/27/17 01/28/17 Unknown Unknown 03:44 WBC 12.1 H RBC 3.28 L 3.14 L Hgb 8.5 L 8.2 L Hct 25.5 L 24.1 L MCV 78 L 77 L MCH 26 L 26 L RDW 16.8 H 16.9 H Plt Count 601 H 567 H Lymph % (Auto) [place] % (Auto) Eos % (Auto) Seg Neutrophils % Seg Neuts % (Manual) Lymphocytes % (Manual) Seg Neutrophils # Seg Neutrophils # Man Lymphocytes # (Manual) POC ABG pH ABG pH POC ABG pCO2 POC ABG pO2 ABG pO2 ABG HCO3 ABG Base Excess ABG Hemoglobin Oxyhemoglobin Sodium 128 L Potassium 5.4 H Chloride 87.5 L Carbon Dioxide BUN 44 H Creatinine Glucose 250 H POC Glucose Lactic Acid Calcium AST Alkaline Phosphatase Albumin Urine WBC (Auto) 01/28/17 01/28/17 01/28/17 03:44 11:43 16:47 WBC RBC Hgb Hct MCV MCH RDW Plt Count Lymph % (Auto) [place] % (Auto) Eos % (Auto) Seg Neutrophils % Seg Neuts % (Manual) Lymphocytes % (Manual) Seg Neutrophils # Seg Neutrophils # Man Lymphocytes # (Manual) POC ABG pH ABG pH POC ABG pCO2 POC ABG pO2 ABG pO2 ABG HCO3 ABG Base Excess ABG Hemoglobin Oxyhemoglobin Sodium Potassium Chloride Carbon Dioxide BUN 42 H Creatinine Glucose 128 H POC Glucose 351 H 249 H Lactic Acid Calcium AST Alkaline Phosphatase Albumin Urine WBC (Auto) 01/28/17 01/29/17 01/29/17 17:52 05:25 05:25 WBC 13.6 H RBC 3.25 L Hgb 8.3 L Hct 25.1 L MCV 77 L MCH 26 L RDW 16.8 H Plt Count 514 H Lymph % (Auto) [place] % (Auto) Eos % (Auto) Seg Neutrophils % Seg Neuts % (Manual) Lymphocytes % (Manual) Seg Neutrophils # Seg Neutrophils # Man Lymphocytes # (Manual) POC ABG pH ABG pH POC ABG pCO2 POC ABG pO2 ABG pO2 ABG HCO3 ABG Base Excess ABG Hemoglobin Oxyhemoglobin Sodium Potassium Chloride 97.8 L Carbon Dioxide BUN 34 H Creatinine Glucose 222 H POC Glucose Lactic Acid Calcium AST Alkaline Phosphatase Albumin Urine WBC (Auto) > 182.0 H 01/29/17 01/29/17 01/29/17 09:32 11:56 18:11 WBC RBC Hgb Hct MCV MCH RDW Plt Count Lymph % (Auto) [place] % (Auto) Eos % (Auto) Seg Neutrophils % Seg Neuts % (Manual) Lymphocytes % (Manual) Seg Neutrophils # Seg Neutrophils # Man Lymphocytes # (Manual) POC ABG pH ABG pH POC ABG pCO2 POC ABG pO2 ABG pO2 ABG HCO3 ABG Base Excess ABG Hemoglobin Oxyhemoglobin Sodium Potassium Chloride Carbon Dioxide BUN Creatinine Glucose POC Glucose 261 H 215 H Lactic Acid 2.50 H* Calcium AST Alkaline Phosphatase Albumin Urine WBC (Auto) 01/29/17 01/30/17 01/30/17 23:55 05:31 05:31 WBC 15.2 H RBC 3.09 L Hgb 7.9 L Hct 23.9 L MCV 77 L MCH 26 L RDW 16.9 H Plt Count 569 H Lymph % (Auto) [place] % (Auto) Eos % (Auto) Seg Neutrophils % Seg Neuts % (Manual) Lymphocytes % (Manual) Seg Neutrophils # Seg Neutrophils # Man Lymphocytes # (Manual) POC ABG pH ABG pH POC ABG pCO2 POC ABG pO2 ABG pO2 ABG HCO3 ABG Base Excess ABG Hemoglobin Oxyhemoglobin Sodium Potassium Chloride Carbon Dioxide BUN 24 H Creatinine Glucose 235 H POC Glucose 176 H Lactic Acid Calcium AST Alkaline Phosphatase Albumin Urine WBC (Auto) 01/30/17 01/30/17 01/30/17 05:34 11:38 17:58 WBC RBC Hgb Hct MCV MCH RDW Plt Count Lymph % (Auto) [place] % (Auto) Eos % (Auto) Seg Neutrophils % Seg Neuts % (Manual) Lymphocytes % (Manual) Seg Neutrophils # Seg Neutrophils # Man Lymphocytes # (Manual) POC ABG pH ABG pH POC ABG pCO2 POC ABG pO2 ABG pO2 ABG HCO3 ABG Base Excess ABG Hemoglobin Oxyhemoglobin Sodium Potassium Chloride Carbon Dioxide BUN Creatinine Glucose POC Glucose 243 H 298 H 208 H Lactic Acid Calcium AST Alkaline Phosphatase Albumin Urine WBC (Auto) 01/30/17 01/31/17 01/31/17 23:29 04:39 04:39 WBC 11.4 H RBC 3.22 L Hgb 8.2 L Hct 24.9 L MCV 78 L MCH 25 L RDW 17.2 H Plt Count 576 H Lymph % (Auto) [place] % (Auto) Eos % (Auto) Seg Neutrophils % Seg Neuts % (Manual) Lymphocytes % (Manual) Seg Neutrophils # Seg Neutrophils # Man Lymphocytes # (Manual) POC ABG pH ABG pH POC ABG pCO2 POC ABG pO2 ABG pO2 ABG HCO3 ABG Base Excess ABG Hemoglobin Oxyhemoglobin Sodium Potassium Chloride Carbon Dioxide BUN Creatinine 0.7 L Glucose 223 H POC Glucose 245 H Lactic Acid Calcium AST Alkaline Phosphatase Albumin Urine WBC (Auto) 01/31/17 01/31/17 01/31/17 05:57 12:23 17:41 WBC RBC Hgb Hct MCV MCH RDW Plt Count Lymph % (Auto) [place] % (Auto) Eos % (Auto) Seg Neutrophils % Seg Neuts % (Manual) Lymphocytes % (Manual) Seg Neutrophils # Seg Neutrophils # Man Lymphocytes # (Manual) POC ABG pH ABG pH POC ABG pCO2 POC ABG pO2 ABG pO2 ABG HCO3 ABG Base Excess ABG Hemoglobin Oxyhemoglobin Sodium Potassium Chloride Carbon Dioxide BUN Creatinine Glucose POC Glucose 264 H 252 H 208 H Lactic Acid Calcium AST Alkaline Phosphatase Albumin Urine WBC (Auto) 01/31/17 01/31/17 02/01/17 18:55 22:59 03:38 WBC RBC 2.81 L Hgb 7.4 L Hct 22.1 L MCV 79 L MCH 27 L RDW 17.0 H Plt Count 540 H Lymph % (Auto) [place] % (Auto) Eos % (Auto) Seg Neutrophils % Seg Neuts % (Manual) Lymphocytes % (Manual) Seg Neutrophils # Seg Neutrophils # Man Lymphocytes # (Manual) POC ABG pH ABG pH POC ABG pCO2 32.8 L POC ABG pO2 ABG pO2 ABG HCO3 ABG Base Excess ABG Hemoglobin Oxyhemoglobin Sodium Potassium Chloride Carbon Dioxide BUN Creatinine Glucose POC Glucose 40 L Lactic Acid Calcium AST Alkaline Phosphatase Albumin Urine WBC (Auto) 02/01/17 02/01/17 02/01/17 03:38 05:17 12:19 WBC RBC Hgb Hct MCV MCH RDW Plt Count Lymph % (Auto) [place] % (Auto) Eos % (Auto) Seg Neutrophils % Seg Neuts % (Manual) Lymphocytes % (Manual) Seg Neutrophils # Seg Neutrophils # Man Lymphocytes # (Manual) POC ABG pH ABG pH POC ABG pCO2 POC ABG pO2 ABG pO2 ABG HCO3 ABG Base Excess ABG Hemoglobin Oxyhemoglobin Sodium Potassium Chloride Carbon Dioxide 21 L BUN Creatinine 0.7 L Glucose POC Glucose 140 H 213 H Lactic Acid Calcium AST Alkaline Phosphatase Albumin Urine WBC (Auto) 02/01/17 02/01/17 02/02/17 16:44 23:59 05:14 WBC RBC Hgb Hct MCV MCH RDW Plt Count Lymph % (Auto) [place] % (Auto) Eos % (Auto) Seg Neutrophils % Seg Neuts % (Manual) Lymphocytes % (Manual) Seg Neutrophils # Seg Neutrophils # Man Lymphocytes # (Manual) POC ABG pH ABG pH POC ABG pCO2 POC ABG pO2 ABG pO2 ABG HCO3 ABG Base Excess ABG Hemoglobin Oxyhemoglobin Sodium Potassium Chloride Carbon Dioxide BUN Creatinine Glucose POC Glucose 172 H 181 H 194 H Lactic Acid Calcium AST Alkaline Phosphatase Albumin Urine WBC (Auto) 02/02/17 02/02/17 02/02/17 11:24 11:46 11:46 WBC RBC 2.94 L Hgb 7.5 L Hct 23.0 L MCV 78 L MCH 25 L RDW 16.9 H Plt Count 520 H Lymph % (Auto) [place] % (Auto) Eos % (Auto) Seg Neutrophils % Seg Neuts % (Manual) Lymphocytes % (Manual) Seg Neutrophils # Seg Neutrophils # Man Lymphocytes # (Manual) POC ABG pH ABG pH POC ABG pCO2 POC ABG pO2 ABG pO2 ABG HCO3 ABG Base Excess ABG Hemoglobin Oxyhemoglobin Sodium Potassium Chloride Carbon Dioxide BUN Creatinine 0.6 L Glucose 189 H POC Glucose 209 H Lactic Acid Calcium 8.1 L AST Alkaline Phosphatase Albumin Urine WBC (Auto) 02/02/17 02/02/17 02/03/17 17:47 23:32 05:53 WBC RBC Hgb Hct MCV MCH RDW Plt Count Lymph % (Auto) [place] % (Auto) Eos % (Auto) Seg Neutrophils % Seg Neuts % (Manual) Lymphocytes % (Manual) Seg Neutrophils # Seg Neutrophils # Man Lymphocytes # (Manual) POC ABG pH ABG pH POC ABG pCO2 POC ABG pO2 ABG pO2 ABG HCO3 ABG Base Excess ABG Hemoglobin Oxyhemoglobin Sodium Potassium Chloride Carbon Dioxide BUN Creatinine Glucose POC Glucose 147 H 176 H 224 H Lactic Acid Calcium AST Alkaline Phosphatase Albumin Urine WBC (Auto) 02/03/17 02/03/17 02/03/17 11:19 16:59 23:38 WBC RBC Hgb Hct MCV MCH RDW Plt Count Lymph % (Auto) [place] % (Auto) Eos % (Auto) Seg Neutrophils % Seg Neuts % (Manual) Lymphocytes % (Manual) Seg Neutrophils # Seg Neutrophils # Man Lymphocytes # (Manual) POC ABG pH ABG pH POC ABG pCO2 POC ABG pO2 ABG pO2 ABG HCO3 ABG Base Excess ABG Hemoglobin Oxyhemoglobin Sodium Potassium Chloride Carbon Dioxide BUN Creatinine Glucose POC Glucose 228 H 189 H 191 H Lactic Acid Calcium AST Alkaline Phosphatase Albumin Urine WBC (Auto) 02/04/17 02/04/17 02/04/17 05:45 11:20 17:20 WBC RBC Hgb Hct MCV MCH RDW Plt Count Lymph % (Auto) [place] % (Auto) Eos % (Auto) Seg Neutrophils % Seg Neuts % (Manual) Lymphocytes % (Manual) Seg Neutrophils # Seg Neutrophils # Man Lymphocytes # (Manual) POC ABG pH ABG pH POC ABG pCO2 POC ABG pO2 ABG pO2 ABG HCO3 ABG Base Excess ABG Hemoglobin Oxyhemoglobin Sodium Potassium Chloride Carbon Dioxide BUN Creatinine Glucose POC Glucose 251 H 243 H 163 H Lactic Acid Calcium AST Alkaline Phosphatase Albumin Urine WBC (Auto) 02/05/17 02/05/17 02/05/17 00:17 05:38 12:38 WBC RBC Hgb Hct MCV MCH RDW Plt Count Lymph % (Auto) [place] % (Auto) Eos % (Auto) Seg Neutrophils % Seg Neuts % (Manual) Lymphocytes % (Manual) Seg Neutrophils # Seg Neutrophils # Man Lymphocytes # (Manual) POC ABG pH ABG pH POC ABG pCO2 POC ABG pO2 ABG pO2 ABG HCO3 ABG Base Excess ABG Hemoglobin Oxyhemoglobin Sodium Potassium Chloride Carbon Dioxide BUN Creatinine Glucose POC Glucose 200 H 248 H 241 H Lactic Acid Calcium AST Alkaline Phosphatase Albumin Urine WBC (Auto) 02/05/17 02/05/17 02/06/17 16:29 23:56 05:30 WBC RBC Hgb Hct MCV MCH RDW Plt Count Lymph % (Auto) [place] % (Auto) Eos % (Auto) Seg Neutrophils % Seg Neuts % (Manual) Lymphocytes % (Manual) Seg Neutrophils # Seg Neutrophils # Man Lymphocytes # (Manual) POC ABG pH ABG pH POC ABG pCO2 POC ABG pO2 ABG pO2 ABG HCO3 ABG Base Excess ABG Hemoglobin Oxyhemoglobin Sodium Potassium Chloride Carbon Dioxide BUN Creatinine Glucose POC Glucose 257 H 258 H 120 H Lactic Acid Calcium AST Alkaline Phosphatase Albumin Urine WBC (Auto) 02/06/17 02/06/17 02/06/17 11:50 17:11 23:50 WBC RBC Hgb Hct MCV MCH RDW Plt Count Lymph % (Auto) [place] % (Auto) Eos % (Auto) Seg Neutrophils % Seg Neuts % (Manual) Lymphocytes % (Manual) Seg Neutrophils # Seg Neutrophils # Man Lymphocytes # (Manual) POC ABG pH ABG pH POC ABG pCO2 POC ABG pO2 ABG pO2 ABG HCO3 ABG Base Excess ABG Hemoglobin Oxyhemoglobin Sodium Potassium Chloride Carbon Dioxide BUN Creatinine Glucose POC Glucose 254 H 149 H 240 H Lactic Acid Calcium AST Alkaline Phosphatase Albumin Urine WBC (Auto) 02/07/17 02/07/17 02/07/17 05:22 11:15 18:33 WBC RBC Hgb Hct MCV MCH RDW Plt Count Lymph % (Auto) [place] % (Auto) Eos % (Auto) Seg Neutrophils % Seg Neuts % (Manual) Lymphocytes % (Manual) Seg Neutrophils # Seg Neutrophils # Man Lymphocytes # (Manual) POC ABG pH ABG pH POC ABG pCO2 POC ABG pO2 ABG pO2 ABG HCO3 ABG Base Excess ABG Hemoglobin Oxyhemoglobin Sodium Potassium Chloride Carbon Dioxide BUN Creatinine Glucose POC Glucose 258 H 239 H 176 H Lactic Acid Calcium AST Alkaline Phosphatase Albumin Urine WBC (Auto) 02/07/17 02/08/17 02/08/17 23:59 06:15 11:55 WBC RBC Hgb Hct MCV MCH RDW Plt Count Lymph % (Auto) [place] % (Auto) Eos % (Auto) Seg Neutrophils % Seg Neuts % (Manual) Lymphocytes % (Manual) Seg Neutrophils # Seg Neutrophils # Man Lymphocytes # (Manual) POC ABG pH ABG pH POC ABG pCO2 POC ABG pO2 ABG pO2 ABG HCO3 ABG Base Excess ABG Hemoglobin Oxyhemoglobin Sodium Potassium Chloride Carbon Dioxide BUN Creatinine Glucose POC Glucose 186 H 195 H 129 H Lactic Acid Calcium AST Alkaline Phosphatase Albumin Urine WBC (Auto) 02/08/17 02/08/17 02/09/17 16:55 23:51 05:51 WBC RBC Hgb Hct MCV MCH RDW Plt Count Lymph % (Auto) [place] % (Auto) Eos % (Auto) Seg Neutrophils % Seg Neuts % (Manual) Lymphocytes % (Manual) Seg Neutrophils # Seg Neutrophils # Man Lymphocytes # (Manual) POC ABG pH ABG pH POC ABG pCO2 POC ABG pO2 ABG pO2 ABG HCO3 ABG Base Excess ABG Hemoglobin Oxyhemoglobin Sodium Potassium Chloride Carbon Dioxide BUN Creatinine Glucose POC Glucose 246 H 262 H 295 H Lactic Acid Calcium AST Alkaline Phosphatase Albumin Urine WBC (Auto) 02/09/17 02/09/17 02/09/17 07:24 07:24 12:08 WBC 14.7 H RBC 3.39 L Hgb 8.9 L Hct 26.4 L MCV 78 L MCH 26 L RDW 18.4 H Plt Count 670 H Lymph % (Auto) 11.8 L [place] % (Auto) Eos % (Auto) Seg Neutrophils % 81.2 H Seg Neuts % (Manual) Lymphocytes % (Manual) Seg Neutrophils # 11.9 H Seg Neutrophils # Man Lymphocytes # (Manual) POC ABG pH ABG pH POC ABG pCO2 POC ABG pO2 ABG pO2 ABG HCO3 ABG Base Excess ABG Hemoglobin Oxyhemoglobin Sodium Potassium Chloride 95.5 L Carbon Dioxide BUN 52 H Creatinine Glucose 277 H POC Glucose 236 H Lactic Acid Calcium AST Alkaline Phosphatase Albumin Urine WBC (Auto) 02/09/17 02/10/17 02/10/17 18:39 00:01 05:44 WBC RBC Hgb Hct MCV MCH RDW Plt Count Lymph % (Auto) [place] % (Auto) Eos % (Auto) Seg Neutrophils % Seg Neuts % (Manual) Lymphocytes % (Manual) Seg Neutrophils # Seg Neutrophils # Man Lymphocytes # (Manual) POC ABG pH ABG pH POC ABG pCO2 POC ABG pO2 ABG pO2 ABG HCO3 ABG Base Excess ABG Hemoglobin Oxyhemoglobin Sodium Potassium Chloride Carbon Dioxide BUN Creatinine Glucose POC Glucose 151 H 210 H 201 H Lactic Acid Calcium AST Alkaline Phosphatase Albumin Urine WBC (Auto) 02/10/17 02/10/17 02/10/17 11:21 17:29 23:56 WBC RBC Hgb Hct MCV MCH RDW Plt Count Lymph % (Auto) [place] % (Auto) Eos % (Auto) Seg Neutrophils % Seg Neuts % (Manual) Lymphocytes % (Manual) Seg Neutrophils # Seg Neutrophils # Man Lymphocytes # (Manual) POC ABG pH ABG pH POC ABG pCO2 POC ABG pO2 ABG pO2 ABG HCO3 ABG Base Excess ABG Hemoglobin Oxyhemoglobin Sodium Potassium Chloride Carbon Dioxide BUN Creatinine Glucose POC Glucose 233 H 167 H 191 H Lactic Acid Calcium AST Alkaline Phosphatase Albumin Urine WBC (Auto) 02/11/17 02/11/17 02/11/17 05:24 12:25 17:03 WBC RBC Hgb Hct MCV MCH RDW Plt Count Lymph % (Auto) [place] % (Auto) Eos % (Auto) Seg Neutrophils % Seg Neuts % (Manual) Lymphocytes % (Manual) Seg Neutrophils # Seg Neutrophils # Man Lymphocytes # (Manual) POC ABG pH ABG pH POC ABG pCO2 POC ABG pO2 ABG pO2 ABG HCO3 ABG Base Excess ABG Hemoglobin Oxyhemoglobin Sodium Potassium Chloride Carbon Dioxide BUN Creatinine Glucose POC Glucose 135 H 275 H 172 H Lactic Acid Calcium AST Alkaline Phosphatase Albumin Urine WBC (Auto) 02/11/17 02/12/17 02/12/17 23:59 05:39 11:33 WBC RBC Hgb Hct MCV MCH RDW Plt Count Lymph % (Auto) [place] % (Auto) Eos % (Auto) Seg Neutrophils % Seg Neuts % (Manual) Lymphocytes % (Manual) Seg Neutrophils # Seg Neutrophils # Man Lymphocytes # (Manual) POC ABG pH ABG pH POC ABG pCO2 POC ABG pO2 ABG pO2 ABG HCO3 ABG Base Excess ABG Hemoglobin Oxyhemoglobin Sodium Potassium Chloride Carbon Dioxide BUN Creatinine Glucose POC Glucose 215 H 261 H 217 H Lactic Acid Calcium AST Alkaline Phosphatase Albumin Urine WBC (Auto) 02/12/17 02/13/17 02/13/17 17:55 00:25 06:46 WBC RBC Hgb Hct MCV MCH RDW Plt Count Lymph % (Auto) [place] % (Auto) Eos % (Auto) Seg Neutrophils % Seg Neuts % (Manual) Lymphocytes % (Manual) Seg Neutrophils # Seg Neutrophils # Man Lymphocytes # (Manual) POC ABG pH ABG pH POC ABG pCO2 POC ABG pO2 ABG pO2 ABG HCO3 ABG Base Excess ABG Hemoglobin Oxyhemoglobin Sodium Potassium Chloride Carbon Dioxide BUN Creatinine Glucose POC Glucose 172 H 207 H 219 H Lactic Acid Calcium AST Alkaline Phosphatase Albumin Urine WBC (Auto) 02/13/17 02/13/17 02/13/17 11:26 17:12 23:44 WBC RBC Hgb Hct MCV MCH RDW Plt Count Lymph % (Auto) [place] % (Auto) Eos % (Auto) Seg Neutrophils % Seg Neuts % (Manual) Lymphocytes % (Manual) Seg Neutrophils # Seg Neutrophils # Man Lymphocytes # (Manual) POC ABG pH ABG pH POC ABG pCO2 POC ABG pO2 ABG pO2 ABG HCO3 ABG Base Excess ABG Hemoglobin Oxyhemoglobin Sodium Potassium Chloride Carbon Dioxide BUN Creatinine Glucose POC Glucose 231 H 190 H 256 H Lactic Acid Calcium AST Alkaline Phosphatase Albumin Urine WBC (Auto) 02/14/17 02/14/17 02/14/17 05:44 12:21 17:57 WBC RBC Hgb Hct MCV MCH RDW Plt Count Lymph % (Auto) [place] % (Auto) Eos % (Auto) Seg Neutrophils % Seg Neuts % (Manual) Lymphocytes % (Manual) Seg Neutrophils # Seg Neutrophils # Man Lymphocytes # (Manual) POC ABG pH ABG pH POC ABG pCO2 POC ABG pO2 ABG pO2 ABG HCO3 ABG Base Excess ABG Hemoglobin Oxyhemoglobin Sodium Potassium Chloride Carbon Dioxide BUN Creatinine Glucose POC Glucose 184 H 233 H 155 H Lactic Acid Calcium AST Alkaline Phosphatase Albumin Urine WBC (Auto) 02/14/17 02/15/17 02/15/17 23:18 05:33 11:45 WBC RBC Hgb Hct MCV MCH RDW Plt Count Lymph % (Auto) [place] % (Auto) Eos % (Auto) Seg Neutrophils % Seg Neuts % (Manual) Lymphocytes % (Manual) Seg Neutrophils # Seg Neutrophils # Man Lymphocytes # (Manual) POC ABG pH ABG pH POC ABG pCO2 POC ABG pO2 ABG pO2 ABG HCO3 ABG Base Excess ABG Hemoglobin Oxyhemoglobin Sodium Potassium Chloride Carbon Dioxide BUN Creatinine Glucose POC Glucose 165 H 239 H 130 H Lactic Acid Calcium AST Alkaline Phosphatase Albumin Urine WBC (Auto) 02/15/17 02/16/17 02/16/17 17:20 00:14 05:09 WBC RBC Hgb Hct MCV MCH RDW Plt Count Lymph % (Auto) [place] % (Auto) Eos % (Auto) Seg Neutrophils % Seg Neuts % (Manual) Lymphocytes % (Manual) Seg Neutrophils # Seg Neutrophils # Man Lymphocytes # (Manual) POC ABG pH ABG pH POC ABG pCO2 POC ABG pO2 ABG pO2 ABG HCO3 ABG Base Excess ABG Hemoglobin Oxyhemoglobin Sodium Potassium Chloride Carbon Dioxide BUN Creatinine Glucose POC Glucose 189 H 197 H 226 H Lactic Acid Calcium AST Alkaline Phosphatase Albumin Urine WBC (Auto) 02/16/17 02/16/17 02/16/17 12:31 16:35 23:49 WBC RBC Hgb Hct MCV MCH RDW Plt Count Lymph % (Auto) [place] % (Auto) Eos % (Auto) Seg Neutrophils % Seg Neuts % (Manual) Lymphocytes % (Manual) Seg Neutrophils # Seg Neutrophils # Man Lymphocytes # (Manual) POC ABG pH ABG pH POC ABG pCO2 POC ABG pO2 ABG pO2 ABG HCO3 ABG Base Excess ABG Hemoglobin Oxyhemoglobin Sodium Potassium Chloride Carbon Dioxide BUN Creatinine Glucose POC Glucose 178 H 174 H 62 L Lactic Acid Calcium AST Alkaline Phosphatase Albumin Urine WBC (Auto) 02/17/17 02/17/17 02/17/17 05:37 11:39 17:02 WBC RBC Hgb Hct MCV MCH RDW Plt Count Lymph % (Auto) [place] % (Auto) Eos % (Auto) Seg Neutrophils % Seg Neuts % (Manual) Lymphocytes % (Manual) Seg Neutrophils # Seg Neutrophils # Man Lymphocytes # (Manual) POC ABG pH ABG pH POC ABG pCO2 POC ABG pO2 ABG pO2 ABG HCO3 ABG Base Excess ABG Hemoglobin Oxyhemoglobin Sodium Potassium Chloride Carbon Dioxide BUN Creatinine Glucose POC Glucose 153 H 231 H 112 H Lactic Acid Calcium AST Alkaline Phosphatase Albumin Urine WBC (Auto) 02/17/17 02/18/17 02/19/17 22:24 15:34 05:09 WBC RBC Hgb Hct MCV MCH RDW Plt Count Lymph % (Auto) [place] % (Auto) Eos % (Auto) Seg Neutrophils % Seg Neuts % (Manual) Lymphocytes % (Manual) Seg Neutrophils # Seg Neutrophils # Man Lymphocytes # (Manual) POC ABG pH ABG pH POC ABG pCO2 POC ABG pO2 ABG pO2 ABG HCO3 ABG Base Excess ABG Hemoglobin Oxyhemoglobin Sodium Potassium Chloride Carbon Dioxide BUN Creatinine Glucose POC Glucose 116 H 215 H 218 H Lactic Acid Calcium AST Alkaline Phosphatase Albumin Urine WBC (Auto) 02/19/17 02/19/17 02/19/17 07:57 14:49 22:10 WBC RBC Hgb Hct MCV MCH RDW Plt Count Lymph % (Auto) [place] % (Auto) Eos % (Auto) Seg Neutrophils % Seg Neuts % (Manual) Lymphocytes % (Manual) Seg Neutrophils # Seg Neutrophils # Man Lymphocytes # (Manual) POC ABG pH ABG pH POC ABG pCO2 POC ABG pO2 ABG pO2 ABG HCO3 ABG Base Excess ABG Hemoglobin Oxyhemoglobin Sodium Potassium Chloride Carbon Dioxide BUN Creatinine Glucose POC Glucose 283 H 290 H 169 H Lactic Acid Calcium AST Alkaline Phosphatase Albumin Urine WBC (Auto) 02/20/17 02/20/17 02/20/17 05:10 15:05 21:52 WBC RBC Hgb Hct MCV MCH RDW Plt Count Lymph % (Auto) [place] % (Auto) Eos % (Auto) Seg Neutrophils % Seg Neuts % (Manual) Lymphocytes % (Manual) Seg Neutrophils # Seg Neutrophils # Man Lymphocytes # (Manual) POC ABG pH ABG pH POC ABG pCO2 POC ABG pO2 ABG pO2 ABG HCO3 ABG Base Excess ABG Hemoglobin Oxyhemoglobin Sodium Potassium Chloride Carbon Dioxide BUN Creatinine Glucose POC Glucose 209 H 172 H 209 H Lactic Acid Calcium AST Alkaline Phosphatase Albumin Urine WBC (Auto) 02/21/17 02/21/17 02/21/17 02:00 04:54 14:43 WBC RBC Hgb Hct MCV MCH RDW Plt Count Lymph % (Auto) [place] % (Auto) Eos % (Auto) Seg Neutrophils % Seg Neuts % (Manual) Lymphocytes % (Manual) Seg Neutrophils # Seg Neutrophils # Man Lymphocytes # (Manual) POC ABG pH ABG pH POC ABG pCO2 POC ABG pO2 ABG pO2 ABG HCO3 ABG Base Excess ABG Hemoglobin Oxyhemoglobin Sodium Potassium Chloride Carbon Dioxide BUN Creatinine Glucose POC Glucose 216 H 227 H 290 H Lactic Acid Calcium AST Alkaline Phosphatase Albumin Urine WBC (Auto) 02/21/17 02/21/17 02/22/17 17:47 22:02 04:52 WBC RBC Hgb Hct MCV MCH RDW Plt Count Lymph % (Auto) [place] % (Auto) Eos % (Auto) Seg Neutrophils % Seg Neuts % (Manual) Lymphocytes % (Manual) Seg Neutrophils # Seg Neutrophils # Man Lymphocytes # (Manual) POC ABG pH ABG pH POC ABG pCO2 POC ABG pO2 ABG pO2 ABG HCO3 ABG Base Excess ABG Hemoglobin Oxyhemoglobin Sodium Potassium Chloride Carbon Dioxide BUN Creatinine Glucose POC Glucose 220 H 246 H 212 H Lactic Acid Calcium AST Alkaline Phosphatase Albumin Urine WBC (Auto) 02/22/17 02/22/17 02/23/17 15:25 21:33 06:04 WBC RBC Hgb Hct MCV MCH RDW Plt Count Lymph % (Auto) [place] % (Auto) Eos % (Auto) Seg Neutrophils % Seg Neuts % (Manual) Lymphocytes % (Manual) Seg Neutrophils # Seg Neutrophils # Man Lymphocytes # (Manual) POC ABG pH ABG pH POC ABG pCO2 POC ABG pO2 ABG pO2 ABG HCO3 ABG Base Excess ABG Hemoglobin Oxyhemoglobin Sodium Potassium Chloride Carbon Dioxide BUN Creatinine Glucose POC Glucose 236 H 255 H 208 H Lactic Acid Calcium AST Alkaline Phosphatase Albumin Urine WBC (Auto)
--- NOTE | 2017-02-23 11:00 | Progress Note ---
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 -- Awaiting court ordered /state guardianship Continue comfort care History Interval history: Patient seen and examined today Medical records reviewed Clinically no change Awaiting court order Hospitalist Physical - Constitutional Vitals: Temp Pulse Resp BP Pulse Ox 99.2 F 70 14 152/90 100 02/23/17 08:00 02/23/17 07:48 02/23/17 06:00 02/23/17 07:48 02/23/17 08:00 General appearance: Present: no acute distress, cachectic, disheveled, other ( unresponsive) - EENT Eyes: Present: PERRL. Absent: scleral icterus - Neck Neck: Present: supple. Absent: enlarged thyroid - Respiratory Respiratory effort: normal Respiratory: bilateral: diminished, rhonchi, negative: rales, wheezing - Cardiovascular Rhythm: regular Heart Sounds: Present: S1 & S2 - Extremities Extremities: no ischemia, No edema - Abdominal General gastrointestinal: soft, non-tender, non-distended, normal bowel sounds - Integumentary Integumentary: Present: clear, warm - Psychiatric Psychiatric: other (unresponsive) - Neurologic Neurologic: other (unresponsive) Results - Labs CBC & Chem 7: 02/09/17 07:24 02/09/17 07:24 Labs: Laboratory Last Values WBC 14.7 K/mm3 (4.5-11.0) H 02/09/17 07:24 RBC 3.39 M/mm3 (3.65-5.03) L 02/09/17 07:24 Hgb 8.9 gm/dl (11.8-15.2) L 02/09/17 07:24 Hct 26.4 % (35.5-45.6) L 02/09/17 07:24 MCV 78 fl (84-94) L 02/09/17 07:24 MCH 26 pg (28-32) L 02/09/17 07:24 MCHC 34 % (32-34) 02/09/17 07:24 RDW 18.4 % (13.2-15.2) H 02/09/17 07:24 Plt Count 670 K/mm3 (140-440) H 02/09/17 07:24 Lymph % (Auto) 11.8 % (13.4-35.0) L 02/09/17 07:24 [place] % (Auto) 4.7 % (0.0-7.3) 02/09/17 07:24 Eos % (Auto) 1.9 % (0.0-4.3) 02/09/17 07:24 Baso % (Auto) 0.4 % (0.0-1.8) 02/09/17 07:24 Lymph # 1.7 K/mm3 (1.2-5.4) 02/09/17 07:24 [place] # 0.7 K/mm3 (0.0-0.8) 02/09/17 07:24 Eos # 0.3 K/mm3 (0.0-0.4) 02/09/17 07:24 Baso # 0.1 K/mm3 (0.0-0.1) 02/09/17 07:24 Add Manual Diff Complete 01/10/17 04:30 Total Counted 100 01/10/17 04:30 Seg Neutrophils % 81.2 % (40.0-70.0) H 02/09/17 07:24 Seg Neuts % (Manual) 88.0 % (40.0-70.0) H 01/10/17 04:30 Band Neutrophils % 7.0 % 01/10/17 04:30 Lymphocytes % (Manual) 4.0 % (13.4-35.0) L 01/10/17 04:30 Reactive Lymphs % (Man) 0 % 01/10/17 04:30 Monocytes % (Manual) 1.0 % (0.0-7.3) 01/10/17 04:30 Eosinophils % (Manual) 0 % (0.0-4.3) 01/10/17 04:30 Basophils % (Manual) 0 % (0.0-1.8) 01/10/17 04:30 Metamyelocytes % 0 % 01/10/17 04:30 Myelocytes % 0 % 01/10/17 04:30 Promyelocytes % 0 % 01/10/17 04:30 Blast Cells % 0 % 01/10/17 04:30 Nucleated RBC % Not Reportable 01/10/17 04:30 Seg Neutrophils # 11.9 K/mm3 (1.8-7.7) H 02/09/17 07:24 Seg Neutrophils # Man 21.2 K/mm3 (1.8-7.7) H 01/10/17 04:30 Band Neutrophils # 1.7 K/mm3 01/10/17 04:30 Lymphocytes # (Manual) 1.0 K/mm3 (1.2-5.4) L 01/10/17 04:30 Abs React Lymphs (Man) 0.0 K/mm3 01/10/17 04:30 Monocytes # (Manual) 0.2 K/mm3 (0.0-0.8) 01/10/17 04:30 Eosinophils # (Manual) 0.0 K/mm3 (0.0-0.4) 01/10/17 04:30 Basophils # (Manual) 0.0 K/mm3 (0.0-0.1) 01/10/17 04:30 Metamyelocytes # 0.0 K/mm3 01/10/17 04:30 Myelocytes # 0.0 K/mm3 01/10/17 04:30 Promyelocytes # 0.0 K/mm3 01/10/17 04:30 Blast Cells # 0.0 K/mm3 01/10/17 04:30 WBC Morphology Not Reportable 01/10/17 04:30 Hypersegmented Neuts Not Reportable 01/10/17 04:30 Hyposegmented Neuts Not Reportable 01/10/17 04:30 Hypogranular Neuts Not Reportable 01/10/17 04:30 Smudge Cells Not Reportable 01/10/17 04:30 Toxic Granulation Not Reportable 01/10/17 04:30 Toxic Vacuolation Not Reportable 01/10/17 04:30 Dohle Bodies Not Reportable 01/10/17 04:30 Pelger-Huet Anomaly Not Reportable 01/10/17 04:30 Shelby Rods Not Reportable 01/10/17 04:30 Platelet Estimate Consistent w auto 01/10/17 04:30 Clumped Platelets Not Reportable 01/10/17 04:30 Plt Clumps, EDTA Not Reportable 01/10/17 04:30 Large Platelets Not Reportable 01/10/17 04:30 Giant Platelets Not Reportable 01/10/17 04:30 Platelet Satelliting Not Reportable 01/10/17 04:30 Plt Morphology Comment Not Reportable 01/10/17 04:30 RBC Morphology Not Reportable 01/10/17 04:30 Dimorphic RBCs Not Reportable 01/10/17 04:30 Polychromasia Not Reportable 01/10/17 04:30 Hypochromasia 1+ 01/10/17 04:30 Poikilocytosis Not Reportable 01/10/17 04:30 Anisocytosis Not Reportable 01/10/17 04:30 Microcytosis Not Reportable 01/10/17 04:30 Macrocytosis Not Reportable 01/10/17 04:30 Spherocytes Not Reportable 01/10/17 04:30 Pappenheimer Bodies Not Reportable 01/10/17 04:30 Sickle Cells Not Reportable 01/10/17 04:30 Target Cells Not Reportable 01/10/17 04:30 Tear Drop Cells Not Reportable 01/10/17 04:30 Ovalocytes Not Reportable 01/10/17 04:30 Helmet Cells Not Reportable 01/10/17 04:30 Jarrett-[place] Bodies Not Reportable 01/10/17 04:30 [place] Rings Not Reportable 01/10/17 04:30 Jessica Cells Not Reportable 01/10/17 04:30 Bite Cells Not Reportable 01/10/17 04:30 Crenated Cell Not Reportable 01/10/17 04:30 Elliptocytes Not Reportable 01/10/17 04:30 Acanthocytes (Spur) Not Reportable 01/10/17 04:30 Rouleaux Not Reportable 01/10/17 04:30 Hemoglobin C Crystals Not Reportable 01/10/17 04:30 Schistocytes Not Reportable 01/10/17 04:30 Malaria parasites Not Reportable 01/10/17 04:30 Kyle Bodies Not Reportable 01/10/17 04:30 Hem Pathologist Commnt No 01/10/17 04:30 PT 14.1 Sec. (12.2-14.9) 01/17/17 04:10 INR 1.04 (0.87-1.13) 01/17/17 04:10 APTT 36.6 Sec. (24.2-36.6) 01/17/17 04:10 POC ABG pH 7.442 (7.35-7.45) 01/31/17 18:55 ABG pH 7.420 pH Units (7.350-7.450) 01/17/17 04:35 POC ABG pCO2 32.8 (35-45) L 01/31/17 18:55 ABG pCO2 34.5 mm Hg 01/17/17 04:35 POC ABG pO2 82 (80-105) 01/31/17 18:55 ABG pO2 160.3 mm Hg (80.0-90.0) H 01/17/17 04:35 POC ABG HCO3 22.4 01/31/17 18:55 ABG HCO3 21.9 mmol/L (20.0-26.0) 01/17/17 04:35 POC ABG Total CO2 23 01/31/17 18:55 POC ABG O2 Sat 97 01/31/17 18:55 ABG O2 Saturation 99.0 % (95.0-99.0) 01/17/17 04:35 ABG O2 Content 11.1 (0.0-44) 01/17/17 04:35 POC ABG Base Excess -2 01/31/17 18:55 ABG Base Excess -2.3 mmol/L (-2.0-3.0) L 01/17/17 04:35 ABG Hemoglobin 7.9 gm/dl (14.0-18.0) L 01/17/17 04:35 ABG Carboxyhemoglobin 1.5 % (0.0-5.0) 01/17/17 04:35 ABG Methemoglobin 0.5 % (0.0-1.5) 01/17/17 04:35 VBG pH 7.284 (7.320-7.420) L 01/09/17 10:16 Oxyhemoglobin 97.1 % (95.0-99.0) 01/17/17 04:35 FiO2 25 % 01/31/17 18:55 Sodium 137 mmol/L (137-145) 02/09/17 07:24 Potassium 4.9 mmol/L (3.6-5.0) 02/09/17 07:24 Chloride 95.5 mmol/L (98-107) L 02/09/17 07:24 Carbon Dioxide 29 mmol/L (22-30) 02/09/17 07:24 Anion Gap 17 mmol/L 02/09/17 07:24 BUN 52 mg/dL (9-20) H 02/09/17 07:24 Creatinine 0.8 mg/dL (0.8-1.5) 02/09/17 07:24 Estimated GFR > 60 ml/min 02/09/17 07:24 BUN/Creatinine Ratio 65 % 02/09/17 07:24 Glucose 277 mg/dL (75-100) H 02/09/17 07:24 POC Glucose 208 (70-105) H 02/23/17 06:04 Lactic Acid 0.80 mmol/L (0.7-2.0) 01/30/17 11:49 Calcium 9.4 mg/dL (8.4-10.2) 02/09/17 07:24 Phosphorus 3.60 mg/dL (2.5-4.5) 01/22/17 04:00 Magnesium 2.10 mg/dL (1.7-2.3) 01/22/17 04:00 Total Bilirubin 0.30 mg/dL (0.1-1.2) 01/22/17 04:00 AST 44 units/L (5-40) H 01/22/17 04:00 ALT 23 units/L (7-56) 01/22/17 04:00 Alkaline Phosphatase 379 units/L (35-129) H 01/22/17 04:00 Ammonia 35.0 umol/L (25-60) 01/09/17 10:16 Total Creatine Kinase 135 units/L (55-170) 01/09/17 10:16 CK-MB (CK-2) 7.1 ng/mL (0.0-4.0) H 01/09/17 10:16 CK-MB (CK-2) Rel Index 5.2 (0-4) H 01/09/17 10:16 Troponin T < 0.010 ng/mL (0.00-0.029) 01/09/17 10:16 NT-Pro-B Natriuret Pep 602.9 pg/mL (0-900) 01/09/17 10:16 Total Protein 7.9 g/dL (6.3-8.2) 01/22/17 04:00 Albumin 2.7 g/dL (3.9-5) L 01/22/17 04:00 Albumin/Globulin Ratio 0.5 % 01/22/17 04:00 TSH 52.800 mlU/mL (0.270-4.200) H 01/09/17 10:16 Free T4 0.78 ng/dL (0.76-1.46) 01/09/17 10:16 Total Cortisol 54.8 mcg/dL () 01/09/17 16:19 Urine Color Yellow (Yellow) 01/28/17 17:52 Urine Turbidity Clear (Clear) 01/28/17 17:52 Urine pH 6.0 (5.0-7.0) 01/28/17 17:52 Ur Specific [place] 1.016 (1.003-1.030) 01/28/17 17:52 Urine Protein 100 mg/dl mg/dL (Negative) 01/28/17 17:52 Urine Glucose (UA) >=500 mg/dL (Negative) 01/28/17 17:52 Urine Ketones Neg mg/dL (Negative) 01/28/17 17:52 Urine Blood Sm (Negative) 01/28/17 17:52 Urine Nitrite Neg (Negative) 01/28/17 17:52 Urine Bilirubin Neg (Negative) 01/28/17 17:52 Urine Urobilinogen < 2.0 mg/dL (<2.0) 01/28/17 17:52 Ur Leukocyte Esterase Lg (Negative) 01/28/17 17:52 Urine WBC (Auto) > 182.0 /HPF (0.0-6.0) H 01/28/17 17:52 Urine RBC (Auto) 113.0 /HPF (0.0-6.0) 01/28/17 17:52 Urine Bacteria (Auto) 2+ /HPF (Negative) 01/28/17 17:52 Urine WBC Clumps 3+ /HPF 01/28/17 17:52 Urine Mucus Few /HPF 01/14/17 14:07 Urine Yeast (Budding) 3+ /HPF 01/14/17 14:07 Salicylates < 0.3 mg/dL (2.8-20.0) L 01/09/17 10:16 Urine Opiates Screen Presumptive negative 01/09/17 10:23 Urine Methadone Screen Presumptive negative 01/09/17 10:23 Acetaminophen < 15.0 ug/mL (10.0-30.0) 01/09/17 10:16 Ur Barbiturates Screen Presumptive negative 01/09/17 10:23 Ur Phencyclidine Scrn Presumptive negative 01/09/17 10:23 Ur Amphetamines Screen Presumptive negative 01/09/17 10:23 U Benzodiazepines Scrn Presumptive negative 01/09/17 10:23 Urine Cocaine Screen Presumptive negative 01/09/17 10:23 U Marijuana (THC) Screen Presumptive negative 01/09/17 10:23 Drugs of Abuse Note Disclamer 01/09/17 10:23 Plasma/Serum Alcohol < 0.01 gm% (0-0.07) 01/09/17 10:16
--- NOTE | 2017-02-24 09:03 | Progress Note ---
Assessment and Plan Hypoglycemic brain injury Persistent vegetative state Metabolic encephalopathy Hypoglycemia/hypothermia, resolved Acute respiratory failure mechanical ventilator greater than 96 hours UTI with klebsiella, treated ( Cx + on 01/28) hyponatremia, Hypothyroidism IDDM Hypertension low grade Fever - Cont supportive care and current medication. Monitor vitals, repeat cx - Patient is DNR- awaiting hospice placement, needs guardianship from the state to give consent, as has no family to give consent -at this time he is COMFORT CARE as per Ethics committee recommendation. Brief History: 51 YO Male with CKD,HTN, DM presents to ED after found down and unresponsive by his neighbor, who subsequently called EMS. Upon arrival, patient found unresponsive on the floor with a serum glucose of 21, patient has a known history of alcohol abuse and delirium tremens. The patient was administered D5 approximate 500 mls during transport without change in mental status/level of consciousness. Pt seen and evaluated in ED was was found to be unable to protect his airway. Pt intubated and placed on vent support. Pt found to have evidence of hypothyroidism. He was started on Synthroid. He has since been in the ICU. library services dean try to locate family, even spoke to the family who he lives with. They themselves were unaware of any family members. After ethics committee meeting on the patient. The decision was made to make him DO NOT RESUSCITATE and to transfer him to hospice. Given his very poor prognosis and poor likelihood of recovery. It was decided that was not his best interest to get trach and PEG. Therefore he'll be transferred to the hospice intubated. Now Awaiting on court ordered /state guardianship. Active meds: Generic Name Dose Route Start Last Admin Trade Name Freq PRN Reason Stop Dose Admin Acetaminophen 650 mg 01/14/17 17:29 02/20/17 01:30 Tylenol FEEDTUBE 650 mg Q6H PRN Administration Non Cardiac Pain Or Temp>101 Lipase/Protease/Amylase 1 each 01/14/17 14:33 Pancreashley Morales 10,500 Unit FEEDTUBE PRN PRN For Clogged Feeding Tube Dextrose 50 gm 01/31/17 23:13 02/17/17 00:10 D50w (25gm) Vial IV 50 gm PRN PRN Administration Hypoglycemia Famotidine 20 mg 01/17/17 10:00 02/23/17 22:31 Pepcid PO 20 mg BID PAOLO Administration Heparin Sodium (Porcine) 5,000 unit 01/10/17 22:00 02/23/17 22:32 Heparin SUB-Q 5,000 unit Q12HR PAOLO Administration Hydralazine HCl 10 mg 01/10/17 13:01 02/02/17 06:14 Apresoline IV 10 mg Q4HR PRN Administration Hypertension Hydrophilic Ointment 1 applic 01/09/17 10:13 Vaseline Lip Therapy TP Q2HR PRN Dry Lips Insulin Aspart 0 units 02/17/17 22:00 02/23/17 22:30 Novolog SUB-Q 3 units Q8HR PAOLO Administration Protocol Insulin Detemir 10 units 01/31/17 15:00 02/23/17 10:00 Levemir SUB-Q 10 units DAILY PAOLO Administration Labetalol HCl 200 mg 01/09/17 13:00 02/23/17 22:31 Normodyne PO 200 mg BID PAOLO Administration Levothyroxine Sodium 100 mcg 01/15/17 06:00 02/23/17 05:26 Synthroid PO 100 mcg DAILY@0600 PAOLO Administration Loperamide HCl 2 mg 02/04/17 10:57 02/16/17 06:33 Imodium A-D PO 2 mg Q2H PRN Administration Diarrhea Multi-Ingred Cream/Lotion/Oil/Oint 1 applic 01/09/17 10:13 Artificial Tears Ophth Oint OU Q4HR PRN Dry Eye(s) Simple Syrup 15 ml 01/14/17 14:33 01/31/17 23:19 Simple Syrup FEEDTUBE 15 ml PRN PRN Administration Hypoglycemia Simple Syrup 30 ml 01/14/17 14:33 Simple Syrup FEEDTUBE PRN PRN Hypoglycemia Sodium Bicarbonate 325 mg 01/14/17 14:33 Sodium Bicarbonate FEEDTUBE PRN PRN For Clogged Feeding Tube Hospitalist Physical - Physical exam Narrative exam: General: comatose HEENT: Moist mucous membranes, , no lymphadenopathy Neck: supple Cardiac: S1-S2 heard Lungs: mechnical ventilated breath sounds Abdomen: soft , nontender, nondistended, bowel sounds positive Extremities: no edema clubbing or cyanosis Skin: no rash or lesions Neurologic: opens eyes, has corneal reflex, pupils minimally responsive, no response to deep painful stimuli Subjective Date of service: 02/24/17 Principal diagnosis: Acute respiratory failure,encephalopathy Interval history: patient remains comatose, no movement of extremities Objective - Constitutional Vitals: Vital Signs - 12hr 02/23/17 02/23/17 02/23/17 22:00 22:31 23:35 Temperature 99.7 F H Pulse Rate 64 64 Respiratory 13 Rate Blood Pressure 137/88 O2 Sat by Pulse 100 Oximetry 02/24/17 02/24/17 02/24/17 00:00 02:00 04:00 Temperature Pulse Rate 68 68 65 Respiratory 13 15 16 Rate Blood Pressure 136/86 136/86 136/86 O2 Sat by Pulse 100 100 100 Oximetry 02/24/17 02/24/17 02/24/17 05:55 06:00 08:00 Temperature 98.7 F Pulse Rate 64 63 Respiratory 15 Rate Blood Pressure 136/86 136/86 O2 Sat by Pulse 100 100 Oximetry - Labs CBC & Chem 7: 02/09/17 07:24 02/09/17 07:24 Labs: Abnormal lab results 02/23/17 02/23/17 02/23/17 Range/Units 10:00 12:52 17:15 POC Glucose 174 H 203 H 269 H (70-105) 02/23/17 Range/Units 21:51 POC Glucose 205 H (70-105)
[2017-02-24] MEDS: HEPARIN SUB-Q SCH (09:40)
[2017-02-24] MEDS: NORMODYNE PO SCH (09:44)
[2017-02-24] MEDS: LEVEMIR (NF) SUB-Q SCH (09:45)
[2017-02-24] MEDS: PEPCID PO SCH (09:45)
--- NOTE | 2017-02-24 10:53 | Progress Note ---
Assessment and Plan Acute respiratory failure, vent/ETT dependent Fever. None today Hypoglycemia/hypothermia - Metabolic encephalopathy. Severe. 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 Resolved Recommendations Currently the patient is DO NOT RESUSCITATE. Waiting for final decision from court order regarding current support versus termination of care Continue PSV/CPAP trials Poor prognosis; complex patient. Discussed status with IMS in detail. Critical care time with a 31 minutes of [id number] evaluation and coordination of care Subjective Date of service: 02/24/17 Principal diagnosis: Acute respiratory failure,encephalopathy Interval history: Intubated. off sedation. Nonresponsive Objective Vital Signs - 12hr 02/23/17 02/24/17 02/24/17 23:35 00:00 02:00 Temperature 99.7 F H Pulse Rate 68 68 Respiratory 13 15 Rate Blood Pressure 136/86 136/86 O2 Sat by Pulse 100 100 Oximetry 02/24/17 02/24/17 02/24/17 04:00 05:55 06:00 Temperature Pulse Rate 65 64 63 Respiratory 16 15 Rate Blood Pressure 136/86 136/86 136/86 O2 Sat by Pulse 100 100 100 Oximetry 02/24/17 02/24/17 08:00 09:44 Temperature 98.7 F Pulse Rate 69 71 Respiratory Rate Blood Pressure 159/87 159/87 O2 Sat by Pulse 100 Oximetry Constitutional: comatose, other (orally intubated, on vent support) Eyes: non-icteric ENT: oropharynx moist Neck: supple Effort: normal Ascultation: Bilateral: clear, diminished breath sounds Cardiovascular: regular rate and rhythm Gastrointestinal: normoactive bowel sounds, soft, non-tender, non-distended Integumentary: normal Extremities: no cyanosis, no edema, pink and warm Neurologic: other (unresponsive except for nonfocal response to pain stimulation ) Psychiatric: other (unable to obtain) CBC and BMP: 02/09/17 07:24 02/09/17 07:24 ABG, PT/INR, D-dimer: ABG POC ABG pH 7.442 (7.35-7.45) 01/31/17 18:55 ABG pH 7.420 pH Units (7.350-7.450) 01/17/17 04:35 POC ABG pCO2 32.8 (35-45) L 01/31/17 18:55 ABG pCO2 34.5 mm Hg 01/17/17 04:35 POC ABG pO2 82 (80-105) 01/31/17 18:55 ABG pO2 160.3 mm Hg (80.0-90.0) H 01/17/17 04:35 POC ABG HCO3 22.4 01/31/17 18:55 POC ABG Total CO2 23 01/31/17 18:55 POC ABG O2 Sat 97 01/31/17 18:55 ABG O2 Saturation 99.0 % (95.0-99.0) 01/17/17 04:35 PT/INR, D-dimer PT 14.1 Sec. (12.2-14.9) 01/17/17 04:10 INR 1.04 (0.87-1.13) 01/17/17 04:10 Abnormal lab findings: Abnormal Labs 01/09/17 01/09/17 01/09/17 10:16 10:16 10:16 WBC RBC Hgb 9.7 L Hct 28.4 L MCV 76 L MCH 26 L RDW 17.2 H Plt Count 448 H Lymph % (Auto) [place] % (Auto) Eos % (Auto) Seg Neutrophils % 79.5 H Seg Neuts % (Manual) Lymphocytes % (Manual) Seg Neutrophils # Seg Neutrophils # Man Lymphocytes # (Manual) APTT 39.6 H POC ABG pH ABG pH POC ABG pCO2 POC ABG pO2 ABG pO2 ABG HCO3 ABG Base Excess ABG Hemoglobin VBG pH Oxyhemoglobin Sodium 132 L Potassium Chloride 96.7 L Carbon Dioxide 21 L BUN 34 H Creatinine Glucose POC Glucose Lactic Acid Calcium 8.3 L AST Alkaline Phosphatase 151 H CK-MB (CK-2) 7.1 H CK-MB (CK-2) Rel Index 5.2 H Albumin 3.3 L TSH Urine WBC (Auto) Salicylates 01/09/17 01/09/17 01/09/17 10:16 10:16 10:16 WBC RBC Hgb Hct MCV MCH RDW Plt Count Lymph % (Auto) [place] % (Auto) Eos % (Auto) Seg Neutrophils % Seg Neuts % (Manual) Lymphocytes % (Manual) Seg Neutrophils # Seg Neutrophils # Man Lymphocytes # (Manual) APTT POC ABG pH ABG pH POC ABG pCO2 POC ABG pO2 ABG pO2 ABG HCO3 ABG Base Excess ABG Hemoglobin VBG pH 7.284 L Oxyhemoglobin Sodium Potassium Chloride Carbon Dioxide BUN Creatinine Glucose POC Glucose Lactic Acid Calcium AST Alkaline Phosphatase CK-MB (CK-2) CK-MB (CK-2) Rel Index Albumin TSH 52.800 H Urine WBC (Auto) Salicylates < 0.3 L 01/09/17 01/09/17 01/09/17 10:23 11:14 12:49 WBC RBC Hgb Hct MCV MCH RDW Plt Count Lymph % (Auto) [place] % (Auto) Eos % (Auto) Seg Neutrophils % Seg Neuts % (Manual) Lymphocytes % (Manual) Seg Neutrophils # Seg Neutrophils # Man Lymphocytes # (Manual) APTT POC ABG pH ABG pH POC ABG pCO2 POC ABG pO2 643 H ABG pO2 ABG HCO3 ABG Base Excess ABG Hemoglobin VBG pH Oxyhemoglobin Sodium Potassium Chloride Carbon Dioxide BUN Creatinine Glucose POC Glucose < 40 L Lactic Acid Calcium AST Alkaline Phosphatase CK-MB (CK-2) CK-MB (CK-2) Rel Index Albumin TSH Urine WBC (Auto) 61.0 H Salicylates 01/09/17 01/09/17 01/09/17 13:13 14:21 15:09 WBC RBC Hgb Hct MCV MCH RDW Plt Count Lymph % (Auto) [place] % (Auto) Eos % (Auto) Seg Neutrophils % Seg Neuts % (Manual) Lymphocytes % (Manual) Seg Neutrophils # Seg Neutrophils # Man Lymphocytes # (Manual) APTT POC ABG pH ABG pH POC ABG pCO2 POC ABG pO2 ABG pO2 ABG HCO3 ABG Base Excess ABG Hemoglobin VBG pH Oxyhemoglobin Sodium Potassium Chloride Carbon Dioxide BUN Creatinine Glucose POC Glucose 128 H 65 L 120 H Lactic Acid Calcium AST Alkaline Phosphatase CK-MB (CK-2) CK-MB (CK-2) Rel Index Albumin TSH Urine WBC (Auto) Salicylates 01/09/17 01/09/17 01/10/17 16:28 17:14 04:30 WBC 24.1 H RBC 3.38 L Hgb 8.5 L Hct 26.0 L MCV 77 L MCH 25 L RDW 17.9 H Plt Count 474 H Lymph % (Auto) [place] % (Auto) Eos % (Auto) Seg Neutrophils % Seg Neuts % (Manual) 88.0 H Lymphocytes % (Manual) 4.0 L Seg Neutrophils # Seg Neutrophils # Man 21.2 H Lymphocytes # (Manual) 1.0 L APTT POC ABG pH ABG pH POC ABG pCO2 POC ABG pO2 ABG pO2 ABG HCO3 ABG Base Excess ABG Hemoglobin VBG pH Oxyhemoglobin Sodium Potassium Chloride Carbon Dioxide BUN Creatinine Glucose POC Glucose 44 L 112 H Lactic Acid Calcium AST Alkaline Phosphatase CK-MB (CK-2) CK-MB (CK-2) Rel Index Albumin TSH Urine WBC (Auto) Salicylates 01/10/17 01/10/17 01/10/17 04:30 05:41 05:45 WBC RBC Hgb Hct MCV MCH RDW Plt Count Lymph % (Auto) [place] % (Auto) Eos % (Auto) Seg Neutrophils % Seg Neuts % (Manual) Lymphocytes % (Manual) Seg Neutrophils # Seg Neutrophils # Man Lymphocytes # (Manual) APTT POC ABG pH ABG pH POC ABG pCO2 26.6 L POC ABG pO2 207 H ABG pO2 ABG HCO3 ABG Base Excess ABG Hemoglobin VBG pH Oxyhemoglobin Sodium Potassium Chloride Carbon Dioxide 17 L BUN 27 H Creatinine Glucose POC Glucose 68 L Lactic Acid Calcium 7.5 L AST Alkaline Phosphatase CK-MB (CK-2) CK-MB (CK-2) Rel Index Albumin TSH Urine WBC (Auto) Salicylates 01/10/17 01/10/17 01/10/17 07:47 10:50 13:41 WBC RBC Hgb Hct MCV MCH RDW Plt Count Lymph % (Auto) [place] % (Auto) Eos % (Auto) Seg Neutrophils % Seg Neuts % (Manual) Lymphocytes % (Manual) Seg Neutrophils # Seg Neutrophils # Man Lymphocytes # (Manual) APTT POC ABG pH ABG pH POC ABG pCO2 POC ABG pO2 ABG pO2 ABG HCO3 ABG Base Excess ABG Hemoglobin VBG pH Oxyhemoglobin Sodium Potassium Chloride Carbon Dioxide BUN Creatinine Glucose POC Glucose 148 H 165 H 114 H Lactic Acid Calcium AST Alkaline Phosphatase CK-MB (CK-2) CK-MB (CK-2) Rel Index Albumin TSH Urine WBC (Auto) Salicylates 01/10/17 01/10/17 01/10/17 20:20 21:39 23:24 WBC RBC Hgb Hct MCV MCH RDW Plt Count Lymph % (Auto) [place] % (Auto) Eos % (Auto) Seg Neutrophils % Seg Neuts % (Manual) Lymphocytes % (Manual) Seg Neutrophils # Seg Neutrophils # Man Lymphocytes # (Manual) APTT POC ABG pH ABG pH POC ABG pCO2 POC ABG pO2 ABG pO2 ABG HCO3 ABG Base Excess ABG Hemoglobin VBG pH Oxyhemoglobin Sodium Potassium Chloride Carbon Dioxide BUN Creatinine Glucose POC Glucose 150 H 175 H 155 H Lactic Acid Calcium AST Alkaline Phosphatase CK-MB (CK-2) CK-MB (CK-2) Rel Index Albumin TSH Urine WBC (Auto) Salicylates 01/11/17 01/11/17 01/11/17 00:19 04:06 05:20 WBC 15.2 H RBC 3.40 L Hgb 8.9 L Hct 26.3 L MCV 78 L MCH 26 L RDW 18.6 H Plt Count 462 H Lymph % (Auto) 13.2 L [place] % (Auto) Eos % (Auto) Seg Neutrophils % 80.8 H Seg Neuts % (Manual) Lymphocytes % (Manual) Seg Neutrophils # 12.3 H Seg Neutrophils # Man Lymphocytes # (Manual) APTT POC ABG pH 7.463 H ABG pH POC ABG pCO2 26.2 L POC ABG pO2 185 H ABG pO2 ABG HCO3 ABG Base Excess ABG Hemoglobin VBG pH Oxyhemoglobin Sodium Potassium Chloride Carbon Dioxide BUN Creatinine Glucose POC Glucose 163 H Lactic Acid Calcium AST Alkaline Phosphatase CK-MB (CK-2) CK-MB (CK-2) Rel Index Albumin TSH Urine WBC (Auto) Salicylates 01/11/17 01/11/17 01/11/17 05:20 06:21 07:57 WBC RBC Hgb Hct MCV MCH RDW Plt Count Lymph % (Auto) [place] % (Auto) Eos % (Auto) Seg Neutrophils % Seg Neuts % (Manual) Lymphocytes % (Manual) Seg Neutrophils # Seg Neutrophils # Man Lymphocytes # (Manual) APTT POC ABG pH ABG pH POC ABG pCO2 POC ABG pO2 ABG pO2 ABG HCO3 ABG Base Excess ABG Hemoglobin VBG pH Oxyhemoglobin Sodium Potassium 3.4 L Chloride 111.5 H Carbon Dioxide 17 L BUN Creatinine Glucose 147 H POC Glucose 139 H 188 H Lactic Acid Calcium 8.0 L AST Alkaline Phosphatase CK-MB (CK-2) CK-MB (CK-2) Rel Index Albumin TSH Urine WBC (Auto) Salicylates 01/11/17 01/11/17 01/11/17 11:46 16:50 23:15 WBC RBC Hgb Hct MCV MCH RDW Plt Count Lymph % (Auto) [place] % (Auto) Eos % (Auto) Seg Neutrophils % Seg Neuts % (Manual) Lymphocytes % (Manual) Seg Neutrophils # Seg Neutrophils # Man Lymphocytes # (Manual) APTT POC ABG pH ABG pH POC ABG pCO2 POC ABG pO2 ABG pO2 ABG HCO3 ABG Base Excess ABG Hemoglobin VBG pH Oxyhemoglobin Sodium Potassium Chloride Carbon Dioxide BUN Creatinine Glucose POC Glucose 199 H 235 H 155 H Lactic Acid Calcium AST Alkaline Phosphatase CK-MB (CK-2) CK-MB (CK-2) Rel Index Albumin TSH Urine WBC (Auto) Salicylates 01/12/17 01/12/17 01/12/17 05:02 06:56 14:50 WBC RBC Hgb Hct MCV MCH RDW Plt Count Lymph % (Auto) [place] % (Auto) Eos % (Auto) Seg Neutrophils % Seg Neuts % (Manual) Lymphocytes % (Manual) Seg Neutrophils # Seg Neutrophils # Man Lymphocytes # (Manual) APTT POC ABG pH ABG pH POC ABG pCO2 28.0 L POC ABG pO2 178 H ABG pO2 ABG HCO3 ABG Base Excess ABG Hemoglobin VBG pH Oxyhemoglobin Sodium Potassium Chloride Carbon Dioxide BUN Creatinine Glucose POC Glucose 119 H 164 H Lactic Acid Calcium AST Alkaline Phosphatase CK-MB (CK-2) CK-MB (CK-2) Rel Index Albumin TSH Urine WBC (Auto) Salicylates 01/13/17 01/13/17 01/13/17 03:37 03:37 04:26 WBC RBC 3.61 L Hgb 9.3 L Hct 28.0 L MCV 78 L MCH 26 L RDW 18.2 H Plt Count Lymph % (Auto) [place] % (Auto) Eos % (Auto) Seg Neutrophils % Seg Neuts % (Manual) Lymphocytes % (Manual) Seg Neutrophils # Seg Neutrophils # Man Lymphocytes # (Manual) APTT POC ABG pH 7.485 H ABG pH POC ABG pCO2 25.4 L POC ABG pO2 73 L ABG pO2 ABG HCO3 ABG Base Excess ABG Hemoglobin VBG pH Oxyhemoglobin Sodium Potassium Chloride 112.4 H Carbon Dioxide 19 L BUN Creatinine Glucose 118 H POC Glucose Lactic Acid Calcium 8.0 L AST Alkaline Phosphatase CK-MB (CK-2) CK-MB (CK-2) Rel Index Albumin TSH Urine WBC (Auto) Salicylates 01/13/17 01/13/17 01/13/17 06:15 11:50 17:31 WBC RBC Hgb Hct MCV MCH RDW Plt Count Lymph % (Auto) [place] % (Auto) Eos % (Auto) Seg Neutrophils % Seg Neuts % (Manual) Lymphocytes % (Manual) Seg Neutrophils # Seg Neutrophils # Man Lymphocytes # (Manual) APTT POC ABG pH ABG pH POC ABG pCO2 POC ABG pO2 ABG pO2 ABG HCO3 ABG Base Excess ABG Hemoglobin VBG pH Oxyhemoglobin Sodium Potassium Chloride Carbon Dioxide BUN Creatinine Glucose POC Glucose 116 H 171 H 203 H Lactic Acid Calcium AST Alkaline Phosphatase CK-MB (CK-2) CK-MB (CK-2) Rel Index Albumin TSH Urine WBC (Auto) Salicylates 01/14/17 01/14/17 01/14/17 00:02 04:50 04:50 WBC RBC 3.32 L Hgb 8.5 L Hct 26.1 L MCV 79 L MCH 26 L RDW 18.2 H Plt Count Lymph % (Auto) [place] % (Auto) 9.0 H Eos % (Auto) Seg Neutrophils % Seg Neuts % (Manual) Lymphocytes % (Manual) Seg Neutrophils # Seg Neutrophils # Man Lymphocytes # (Manual) APTT POC ABG pH ABG pH POC ABG pCO2 POC ABG pO2 ABG pO2 ABG HCO3 ABG Base Excess ABG Hemoglobin VBG pH Oxyhemoglobin Sodium Potassium Chloride 112.5 H Carbon Dioxide BUN Creatinine Glucose 149 H POC Glucose 157 H Lactic Acid Calcium 8.1 L AST Alkaline Phosphatase CK-MB (CK-2) CK-MB (CK-2) Rel Index Albumin TSH Urine WBC (Auto) Salicylates 01/14/17 01/14/17 01/14/17 05:10 11:27 14:07 WBC RBC Hgb Hct MCV MCH RDW Plt Count Lymph % (Auto) [place] % (Auto) Eos % (Auto) Seg Neutrophils % Seg Neuts % (Manual) Lymphocytes % (Manual) Seg Neutrophils # Seg Neutrophils # Man Lymphocytes # (Manual) APTT POC ABG pH ABG pH POC ABG pCO2 POC ABG pO2 ABG pO2 ABG HCO3 ABG Base Excess ABG Hemoglobin VBG pH Oxyhemoglobin Sodium Potassium Chloride Carbon Dioxide BUN Creatinine Glucose POC Glucose 176 H 147 H Lactic Acid Calcium AST Alkaline Phosphatase CK-MB (CK-2) CK-MB (CK-2) Rel Index Albumin TSH Urine WBC (Auto) 53.0 H Salicylates 01/14/17 01/15/17 01/15/17 16:52 00:04 05:26 WBC RBC Hgb Hct MCV MCH RDW Plt Count Lymph % (Auto) [place] % (Auto) Eos % (Auto) Seg Neutrophils % Seg Neuts % (Manual) Lymphocytes % (Manual) Seg Neutrophils # Seg Neutrophils # Man Lymphocytes # (Manual) APTT POC ABG pH ABG pH POC ABG pCO2 POC ABG pO2 ABG pO2 ABG HCO3 ABG Base Excess ABG Hemoglobin VBG pH Oxyhemoglobin Sodium Potassium Chloride Carbon Dioxide BUN Creatinine Glucose POC Glucose 131 H 193 H 215 H Lactic Acid Calcium AST Alkaline Phosphatase CK-MB (CK-2) CK-MB (CK-2) Rel Index Albumin TSH Urine WBC (Auto) Salicylates 01/15/17 01/15/17 01/15/17 11:49 17:47 21:33 WBC RBC Hgb Hct MCV MCH RDW Plt Count Lymph % (Auto) [place] % (Auto) Eos % (Auto) Seg Neutrophils % Seg Neuts % (Manual) Lymphocytes % (Manual) Seg Neutrophils # Seg Neutrophils # Man Lymphocytes # (Manual) APTT POC ABG pH ABG pH POC ABG pCO2 POC ABG pO2 ABG pO2 ABG HCO3 ABG Base Excess ABG Hemoglobin VBG pH Oxyhemoglobin Sodium Potassium Chloride Carbon Dioxide BUN Creatinine Glucose POC Glucose 121 H 211 H 275 H Lactic Acid Calcium AST Alkaline Phosphatase CK-MB (CK-2) CK-MB (CK-2) Rel Index Albumin TSH Urine WBC (Auto) Salicylates 01/16/17 01/16/17 01/16/17 04:30 05:28 13:45 WBC RBC Hgb Hct MCV MCH RDW Plt Count Lymph % (Auto) [place] % (Auto) Eos % (Auto) Seg Neutrophils % Seg Neuts % (Manual) Lymphocytes % (Manual) Seg Neutrophils # Seg Neutrophils # Man Lymphocytes # (Manual) APTT POC ABG pH ABG pH 7.457 H POC ABG pCO2 POC ABG pO2 ABG pO2 55.1 L ABG HCO3 19.4 L ABG Base Excess -4.0 L ABG Hemoglobin 6.8 L VBG pH Oxyhemoglobin 94.9 L Sodium Potassium Chloride Carbon Dioxide BUN Creatinine Glucose POC Glucose 271 H 236 H Lactic Acid Calcium AST Alkaline Phosphatase CK-MB (CK-2) CK-MB (CK-2) Rel Index Albumin TSH Urine WBC (Auto) Salicylates 01/16/17 01/17/17 01/17/17 21:39 04:10 04:10 WBC 4.4 L RBC 2.98 L Hgb 7.7 L Hct 23.3 L MCV 78 L MCH 26 L RDW 18.1 H Plt Count Lymph % (Auto) [place] % (Auto) Eos % (Auto) Seg Neutrophils % Seg Neuts % (Manual) Lymphocytes % (Manual) Seg Neutrophils # Seg Neutrophils # Man Lymphocytes # (Manual) APTT POC ABG pH ABG pH POC ABG pCO2 POC ABG pO2 ABG pO2 ABG HCO3 ABG Base Excess ABG Hemoglobin VBG pH Oxyhemoglobin Sodium Potassium 3.3 L Chloride 108.7 H Carbon Dioxide 20 L BUN 8 L Creatinine Glucose 202 H POC Glucose 258 H Lactic Acid Calcium 7.6 L AST Alkaline Phosphatase CK-MB (CK-2) CK-MB (CK-2) Rel Index Albumin TSH Urine WBC (Auto) Salicylates 01/17/17 01/17/17 01/17/17 04:35 12:23 16:01 WBC RBC Hgb Hct MCV MCH RDW Plt Count Lymph % (Auto) [place] % (Auto) Eos % (Auto) Seg Neutrophils % Seg Neuts % (Manual) Lymphocytes % (Manual) Seg Neutrophils # Seg Neutrophils # Man Lymphocytes # (Manual) APTT POC ABG pH ABG pH POC ABG pCO2 POC ABG pO2 ABG pO2 160.3 H ABG HCO3 ABG Base Excess -2.3 L ABG Hemoglobin 7.9 L VBG pH Oxyhemoglobin Sodium Potassium Chloride Carbon Dioxide BUN Creatinine Glucose POC Glucose 321 H 239 H Lactic Acid Calcium AST Alkaline Phosphatase CK-MB (CK-2) CK-MB (CK-2) Rel Index Albumin TSH Urine WBC (Auto) Salicylates 01/18/17 01/18/17 01/18/17 05:07 12:09 17:54 WBC RBC Hgb Hct MCV MCH RDW Plt Count Lymph % (Auto) [place] % (Auto) Eos % (Auto) Seg Neutrophils % Seg Neuts % (Manual) Lymphocytes % (Manual) Seg Neutrophils # Seg Neutrophils # Man Lymphocytes # (Manual) APTT POC ABG pH ABG pH POC ABG pCO2 POC ABG pO2 ABG pO2 ABG HCO3 ABG Base Excess ABG Hemoglobin VBG pH Oxyhemoglobin Sodium Potassium Chloride Carbon Dioxide BUN Creatinine Glucose POC Glucose 155 H 203 H 132 H Lactic Acid Calcium AST Alkaline Phosphatase CK-MB (CK-2) CK-MB (CK-2) Rel Index Albumin TSH Urine WBC (Auto) Salicylates 01/18/17 01/19/17 01/19/17 23:43 04:28 12:11 WBC RBC Hgb Hct MCV MCH RDW Plt Count Lymph % (Auto) [place] % (Auto) Eos % (Auto) Seg Neutrophils % Seg Neuts % (Manual) Lymphocytes % (Manual) Seg Neutrophils # Seg Neutrophils # Man Lymphocytes # (Manual) APTT POC ABG pH ABG pH POC ABG pCO2 POC ABG pO2 ABG pO2 ABG HCO3 ABG Base Excess ABG Hemoglobin VBG pH Oxyhemoglobin Sodium Potassium Chloride Carbon Dioxide BUN Creatinine Glucose POC Glucose 125 H 182 H 153 H Lactic Acid Calcium AST Alkaline Phosphatase CK-MB (CK-2) CK-MB (CK-2) Rel Index Albumin TSH Urine WBC (Auto) Salicylates 01/19/17 01/20/17 01/20/17 17:23 00:12 05:44 WBC RBC Hgb Hct MCV MCH RDW Plt Count Lymph % (Auto) [place] % (Auto) Eos % (Auto) Seg Neutrophils % Seg Neuts % (Manual) Lymphocytes % (Manual) Seg Neutrophils # Seg Neutrophils # Man Lymphocytes # (Manual) APTT POC ABG pH ABG pH POC ABG pCO2 POC ABG pO2 ABG pO2 ABG HCO3 ABG Base Excess ABG Hemoglobin VBG pH Oxyhemoglobin Sodium Potassium Chloride Carbon Dioxide BUN Creatinine Glucose POC Glucose 66 L 139 H 176 H Lactic Acid Calcium AST Alkaline Phosphatase CK-MB (CK-2) CK-MB (CK-2) Rel Index Albumin TSH Urine WBC (Auto) Salicylates 01/20/17 01/20/17 01/20/17 11:48 17:42 23:43 WBC RBC Hgb Hct MCV MCH RDW Plt Count Lymph % (Auto) [place] % (Auto) Eos % (Auto) Seg Neutrophils % Seg Neuts % (Manual) Lymphocytes % (Manual) Seg Neutrophils # Seg Neutrophils # Man Lymphocytes # (Manual) APTT POC ABG pH ABG pH POC ABG pCO2 POC ABG pO2 ABG pO2 ABG HCO3 ABG Base Excess ABG Hemoglobin VBG pH Oxyhemoglobin Sodium Potassium Chloride Carbon Dioxide BUN Creatinine Glucose POC Glucose 218 H 132 H 178 H Lactic Acid Calcium AST Alkaline Phosphatase CK-MB (CK-2) CK-MB (CK-2) Rel Index Albumin TSH Urine WBC (Auto) Salicylates 01/21/17 01/21/17 01/21/17 05:34 11:17 23:37 WBC RBC Hgb Hct MCV MCH RDW Plt Count Lymph % (Auto) [place] % (Auto) Eos % (Auto) Seg Neutrophils % Seg Neuts % (Manual) Lymphocytes % (Manual) Seg Neutrophils # Seg Neutrophils # Man Lymphocytes # (Manual) APTT POC ABG pH ABG pH POC ABG pCO2 POC ABG pO2 ABG pO2 ABG HCO3 ABG Base Excess ABG Hemoglobin VBG pH Oxyhemoglobin Sodium Potassium Chloride Carbon Dioxide BUN Creatinine Glucose POC Glucose 106 H 213 H 140 H Lactic Acid Calcium AST Alkaline Phosphatase CK-MB (CK-2) CK-MB (CK-2) Rel Index Albumin TSH Urine WBC (Auto) Salicylates 01/22/17 01/22/17 01/22/17 04:00 04:00 04:58 WBC RBC 3.26 L Hgb 8.3 L Hct 25.5 L MCV 78 L MCH 25 L RDW 17.9 H Plt Count Lymph % (Auto) [place] % (Auto) 7.9 H Eos % (Auto) 6.2 H Seg Neutrophils % Seg Neuts % (Manual) Lymphocytes % (Manual) Seg Neutrophils # Seg Neutrophils # Man Lymphocytes # (Manual) APTT POC ABG pH ABG pH POC ABG pCO2 POC ABG pO2 ABG pO2 ABG HCO3 ABG Base Excess ABG Hemoglobin VBG pH Oxyhemoglobin Sodium Potassium Chloride 95.5 L Carbon Dioxide 31 H D BUN Creatinine Glucose 134 H POC Glucose 146 H Lactic Acid Calcium AST 44 H Alkaline Phosphatase 379 H CK-MB (CK-2) CK-MB (CK-2) Rel Index Albumin 2.7 L TSH Urine WBC (Auto) Salicylates 01/22/17 01/22/17 01/22/17 12:12 18:12 23:39 WBC RBC Hgb Hct MCV MCH RDW Plt Count Lymph % (Auto) [place] % (Auto) Eos % (Auto) Seg Neutrophils % Seg Neuts % (Manual) Lymphocytes % (Manual) Seg Neutrophils # Seg Neutrophils # Man Lymphocytes # (Manual) APTT POC ABG pH ABG pH POC ABG pCO2 POC ABG pO2 ABG pO2 ABG HCO3 ABG Base Excess ABG Hemoglobin VBG pH Oxyhemoglobin Sodium Potassium Chloride Carbon Dioxide BUN Creatinine Glucose POC Glucose 255 H 182 H 134 H Lactic Acid Calcium AST Alkaline Phosphatase CK-MB (CK-2) CK-MB (CK-2) Rel Index Albumin TSH Urine WBC (Auto) Salicylates 01/23/17 01/23/17 01/23/17 04:43 12:12 17:36 WBC RBC Hgb Hct MCV MCH RDW Plt Count Lymph % (Auto) [place] % (Auto) Eos % (Auto) Seg Neutrophils % Seg Neuts % (Manual) Lymphocytes % (Manual) Seg Neutrophils # Seg Neutrophils # Man Lymphocytes # (Manual) APTT POC ABG pH ABG pH POC ABG pCO2 POC ABG pO2 ABG pO2 ABG HCO3 ABG Base Excess ABG Hemoglobin VBG pH Oxyhemoglobin Sodium Potassium Chloride Carbon Dioxide BUN Creatinine Glucose POC Glucose 218 H 128 H 156 H Lactic Acid Calcium AST Alkaline Phosphatase CK-MB (CK-2) CK-MB (CK-2) Rel Index Albumin TSH Urine WBC (Auto) Salicylates 01/24/17 01/24/17 01/24/17 00:08 05:16 11:40 WBC RBC Hgb Hct MCV MCH RDW Plt Count Lymph % (Auto) [place] % (Auto) Eos % (Auto) Seg Neutrophils % Seg Neuts % (Manual) Lymphocytes % (Manual) Seg Neutrophils # Seg Neutrophils # Man Lymphocytes # (Manual) APTT POC ABG pH ABG pH POC ABG pCO2 POC ABG pO2 ABG pO2 ABG HCO3 ABG Base Excess ABG Hemoglobin VBG pH Oxyhemoglobin Sodium Potassium Chloride Carbon Dioxide BUN Creatinine Glucose POC Glucose 129 H 169 H 187 H Lactic Acid Calcium AST Alkaline Phosphatase CK-MB (CK-2) CK-MB (CK-2) Rel Index Albumin TSH Urine WBC (Auto) Salicylates 01/24/17 01/24/17 01/25/17 17:43 23:23 04:56 WBC RBC Hgb Hct MCV MCH RDW Plt Count Lymph % (Auto) [place] % (Auto) Eos % (Auto) Seg Neutrophils % Seg Neuts % (Manual) Lymphocytes % (Manual) Seg Neutrophils # Seg Neutrophils # Man Lymphocytes # (Manual) APTT POC ABG pH ABG pH POC ABG pCO2 POC ABG pO2 ABG pO2 ABG HCO3 ABG Base Excess ABG Hemoglobin VBG pH Oxyhemoglobin Sodium Potassium Chloride Carbon Dioxide BUN Creatinine Glucose POC Glucose 215 H 222 H 210 H Lactic Acid Calcium AST Alkaline Phosphatase CK-MB (CK-2) CK-MB (CK-2) Rel Index Albumin TSH Urine WBC (Auto) Salicylates 01/25/17 01/25/17 01/26/17 11:52 17:37 00:02 WBC RBC Hgb Hct MCV MCH RDW Plt Count Lymph % (Auto) [place] % (Auto) Eos % (Auto) Seg Neutrophils % Seg Neuts % (Manual) Lymphocytes % (Manual) Seg Neutrophils # Seg Neutrophils # Man Lymphocytes # (Manual) APTT POC ABG pH ABG pH POC ABG pCO2 POC ABG pO2 ABG pO2 ABG HCO3 ABG Base Excess ABG Hemoglobin VBG pH Oxyhemoglobin Sodium Potassium Chloride Carbon Dioxide BUN Creatinine Glucose POC Glucose 284 H 218 H 192 H Lactic Acid Calcium AST Alkaline Phosphatase CK-MB (CK-2) CK-MB (CK-2) Rel Index Albumin TSH Urine WBC (Auto) Salicylates 01/26/17 01/26/17 01/26/17 05:33 12:17 17:50 WBC RBC Hgb Hct MCV MCH RDW Plt Count Lymph % (Auto) [place] % (Auto) Eos % (Auto) Seg Neutrophils % Seg Neuts % (Manual) Lymphocytes % (Manual) Seg Neutrophils # Seg Neutrophils # Man Lymphocytes # (Manual) APTT POC ABG pH ABG pH POC ABG pCO2 POC ABG pO2 ABG pO2 ABG HCO3 ABG Base Excess ABG Hemoglobin VBG pH Oxyhemoglobin Sodium Potassium Chloride Carbon Dioxide BUN Creatinine Glucose POC Glucose 199 H 227 H 229 H Lactic Acid Calcium AST Alkaline Phosphatase CK-MB (CK-2) CK-MB (CK-2) Rel Index Albumin TSH Urine WBC (Auto) Salicylates 01/26/17 01/27/17 01/27/17 23:57 05:31 11:42 WBC RBC Hgb Hct MCV MCH RDW Plt Count Lymph % (Auto) [place] % (Auto) Eos % (Auto) Seg Neutrophils % Seg Neuts % (Manual) Lymphocytes % (Manual) Seg Neutrophils # Seg Neutrophils # Man Lymphocytes # (Manual) APTT POC ABG pH ABG pH POC ABG pCO2 POC ABG pO2 ABG pO2 ABG HCO3 ABG Base Excess ABG Hemoglobin VBG pH Oxyhemoglobin Sodium Potassium Chloride Carbon Dioxide BUN Creatinine Glucose POC Glucose 186 H 285 H 260 H Lactic Acid Calcium AST Alkaline Phosphatase CK-MB (CK-2) CK-MB (CK-2) Rel Index Albumin TSH Urine WBC (Auto) Salicylates 01/27/17 01/27/17 01/27/17 17:47 23:58 Unknown WBC 12.1 H RBC 3.28 L Hgb 8.5 L Hct 25.5 L MCV 78 L MCH 26 L RDW 16.8 H Plt Count 601 H Lymph % (Auto) [place] % (Auto) Eos % (Auto) Seg Neutrophils % Seg Neuts % (Manual) Lymphocytes % (Manual) Seg Neutrophils # Seg Neutrophils # Man Lymphocytes # (Manual) APTT POC ABG pH ABG pH POC ABG pCO2 POC ABG pO2 ABG pO2 ABG HCO3 ABG Base Excess ABG Hemoglobin VBG pH Oxyhemoglobin Sodium Potassium Chloride Carbon Dioxide BUN Creatinine Glucose POC Glucose 329 H 225 H Lactic Acid Calcium AST Alkaline Phosphatase CK-MB (CK-2) CK-MB (CK-2) Rel Index Albumin TSH Urine WBC (Auto) Salicylates 01/27/17 01/28/17 01/28/17 Unknown 03:44 03:44 WBC RBC 3.14 L Hgb 8.2 L Hct 24.1 L MCV 77 L MCH 26 L RDW 16.9 H Plt Count 567 H Lymph % (Auto) [place] % (Auto) Eos % (Auto) Seg Neutrophils % Seg Neuts % (Manual) Lymphocytes % (Manual) Seg Neutrophils # Seg Neutrophils # Man Lymphocytes # (Manual) APTT POC ABG pH ABG pH POC ABG pCO2 POC ABG pO2 ABG pO2 ABG HCO3 ABG Base Excess ABG Hemoglobin VBG pH Oxyhemoglobin Sodium 128 L Potassium 5.4 H Chloride 87.5 L Carbon Dioxide BUN 44 H 42 H Creatinine Glucose 250 H 128 H POC Glucose Lactic Acid Calcium AST Alkaline Phosphatase CK-MB (CK-2) CK-MB (CK-2) Rel Index Albumin TSH Urine WBC (Auto) Salicylates 01/28/17 01/28/17 01/28/17 11:43 16:47 17:52 WBC RBC Hgb Hct MCV MCH RDW Plt Count Lymph % (Auto) [place] % (Auto) Eos % (Auto) Seg Neutrophils % Seg Neuts % (Manual) Lymphocytes % (Manual) Seg Neutrophils # Seg Neutrophils # Man Lymphocytes # (Manual) APTT POC ABG pH ABG pH POC ABG pCO2 POC ABG pO2 ABG pO2 ABG HCO3 ABG Base Excess ABG Hemoglobin VBG pH Oxyhemoglobin Sodium Potassium Chloride Carbon Dioxide BUN Creatinine Glucose POC Glucose 351 H 249 H Lactic Acid Calcium AST Alkaline Phosphatase CK-MB (CK-2) CK-MB (CK-2) Rel Index Albumin TSH Urine WBC (Auto) > 182.0 H Salicylates 01/29/17 01/29/17 01/29/17 05:25 05:25 09:32 WBC 13.6 H RBC 3.25 L Hgb 8.3 L Hct 25.1 L MCV 77 L MCH 26 L RDW 16.8 H Plt Count 514 H Lymph % (Auto) [place] % (Auto) Eos % (Auto) Seg Neutrophils % Seg Neuts % (Manual) Lymphocytes % (Manual) Seg Neutrophils # Seg Neutrophils # Man Lymphocytes # (Manual) APTT POC ABG pH ABG pH POC ABG pCO2 POC ABG pO2 ABG pO2 ABG HCO3 ABG Base Excess ABG Hemoglobin VBG pH Oxyhemoglobin Sodium Potassium Chloride 97.8 L Carbon Dioxide BUN 34 H Creatinine Glucose 222 H POC Glucose Lactic Acid 2.50 H* Calcium AST Alkaline Phosphatase CK-MB (CK-2) CK-MB (CK-2) Rel Index Albumin TSH Urine WBC (Auto) Salicylates 01/29/17 01/29/17 01/29/17 11:56 18:11 23:55 WBC RBC Hgb Hct MCV MCH RDW Plt Count Lymph % (Auto) [place] % (Auto) Eos % (Auto) Seg Neutrophils % Seg Neuts % (Manual) Lymphocytes % (Manual) Seg Neutrophils # Seg Neutrophils # Man Lymphocytes # (Manual) APTT POC ABG pH ABG pH POC ABG pCO2 POC ABG pO2 ABG pO2 ABG HCO3 ABG Base Excess ABG Hemoglobin VBG pH Oxyhemoglobin Sodium Potassium Chloride Carbon Dioxide BUN Creatinine Glucose POC Glucose 261 H 215 H 176 H Lactic Acid Calcium AST Alkaline Phosphatase CK-MB (CK-2) CK-MB (CK-2) Rel Index Albumin TSH Urine WBC (Auto) Salicylates 01/30/17 01/30/17 01/30/17 05:31 05:31 05:34 WBC 15.2 H RBC 3.09 L Hgb 7.9 L Hct 23.9 L MCV 77 L MCH 26 L RDW 16.9 H Plt Count 569 H Lymph % (Auto) [place] % (Auto) Eos % (Auto) Seg Neutrophils % Seg Neuts % (Manual) Lymphocytes % (Manual) Seg Neutrophils # Seg Neutrophils # Man Lymphocytes # (Manual) APTT POC ABG pH ABG pH POC ABG pCO2 POC ABG pO2 ABG pO2 ABG HCO3 ABG Base Excess ABG Hemoglobin VBG pH Oxyhemoglobin Sodium Potassium Chloride Carbon Dioxide BUN 24 H Creatinine Glucose 235 H POC Glucose 243 H Lactic Acid Calcium AST Alkaline Phosphatase CK-MB (CK-2) CK-MB (CK-2) Rel Index Albumin TSH Urine WBC (Auto) Salicylates 01/30/17 01/30/17 01/30/17 11:38 17:58 23:29 WBC RBC Hgb Hct MCV MCH RDW Plt Count Lymph % (Auto) [place] % (Auto) Eos % (Auto) Seg Neutrophils % Seg Neuts % (Manual) Lymphocytes % (Manual) Seg Neutrophils # Seg Neutrophils # Man Lymphocytes # (Manual) APTT POC ABG pH ABG pH POC ABG pCO2 POC ABG pO2 ABG pO2 ABG HCO3 ABG Base Excess ABG Hemoglobin VBG pH Oxyhemoglobin Sodium Potassium Chloride Carbon Dioxide BUN Creatinine Glucose POC Glucose 298 H 208 H 245 H Lactic Acid Calcium AST Alkaline Phosphatase CK-MB (CK-2) CK-MB (CK-2) Rel Index Albumin TSH Urine WBC (Auto) Salicylates 01/31/17 01/31/17 01/31/17 04:39 04:39 05:57 WBC 11.4 H RBC 3.22 L Hgb 8.2 L Hct 24.9 L MCV 78 L MCH 25 L RDW 17.2 H Plt Count 576 H Lymph % (Auto) [place] % (Auto) Eos % (Auto) Seg Neutrophils % Seg Neuts % (Manual) Lymphocytes % (Manual) Seg Neutrophils # Seg Neutrophils # Man Lymphocytes # (Manual) APTT POC ABG pH ABG pH POC ABG pCO2 POC ABG pO2 ABG pO2 ABG HCO3 ABG Base Excess ABG Hemoglobin VBG pH Oxyhemoglobin Sodium Potassium Chloride Carbon Dioxide BUN Creatinine 0.7 L Glucose 223 H POC Glucose 264 H Lactic Acid Calcium AST Alkaline Phosphatase CK-MB (CK-2) CK-MB (CK-2) Rel Index Albumin TSH Urine WBC (Auto) Salicylates 01/31/17 01/31/17 01/31/17 12:23 17:41 18:55 WBC RBC Hgb Hct MCV MCH RDW Plt Count Lymph % (Auto) [place] % (Auto) Eos % (Auto) Seg Neutrophils % Seg Neuts % (Manual) Lymphocytes % (Manual) Seg Neutrophils # Seg Neutrophils # Man Lymphocytes # (Manual) APTT POC ABG pH ABG pH POC ABG pCO2 32.8 L POC ABG pO2 ABG pO2 ABG HCO3 ABG Base Excess ABG Hemoglobin VBG pH Oxyhemoglobin Sodium Potassium Chloride Carbon Dioxide BUN Creatinine Glucose POC Glucose 252 H 208 H Lactic Acid Calcium AST Alkaline Phosphatase CK-MB (CK-2) CK-MB (CK-2) Rel Index Albumin TSH Urine WBC (Auto) Salicylates 01/31/17 02/01/17 02/01/17 22:59 03:38 03:38 WBC RBC 2.81 L Hgb 7.4 L Hct 22.1 L MCV 79 L MCH 27 L RDW 17.0 H Plt Count 540 H Lymph % (Auto) [place] % (Auto) Eos % (Auto) Seg Neutrophils % Seg Neuts % (Manual) Lymphocytes % (Manual) Seg Neutrophils # Seg Neutrophils # Man Lymphocytes # (Manual) APTT POC ABG pH ABG pH POC ABG pCO2 POC ABG pO2 ABG pO2 ABG HCO3 ABG Base Excess ABG Hemoglobin VBG pH Oxyhemoglobin Sodium Potassium Chloride Carbon Dioxide 21 L BUN Creatinine 0.7 L Glucose POC Glucose 40 L Lactic Acid Calcium AST Alkaline Phosphatase CK-MB (CK-2) CK-MB (CK-2) Rel Index Albumin TSH Urine WBC (Auto) Salicylates 02/01/17 02/01/17 02/01/17 05:17 12:19 16:44 WBC RBC Hgb Hct MCV MCH RDW Plt Count Lymph % (Auto) [place] % (Auto) Eos % (Auto) Seg Neutrophils % Seg Neuts % (Manual) Lymphocytes % (Manual) Seg Neutrophils # Seg Neutrophils # Man Lymphocytes # (Manual) APTT POC ABG pH ABG pH POC ABG pCO2 POC ABG pO2 ABG pO2 ABG HCO3 ABG Base Excess ABG Hemoglobin VBG pH Oxyhemoglobin Sodium Potassium Chloride Carbon Dioxide BUN Creatinine Glucose POC Glucose 140 H 213 H 172 H Lactic Acid Calcium AST Alkaline Phosphatase CK-MB (CK-2) CK-MB (CK-2) Rel Index Albumin TSH Urine WBC (Auto) Salicylates 02/01/17 02/02/17 02/02/17 23:59 05:14 11:24 WBC RBC Hgb Hct MCV MCH RDW Plt Count Lymph % (Auto) [place] % (Auto) Eos % (Auto) Seg Neutrophils % Seg Neuts % (Manual) Lymphocytes % (Manual) Seg Neutrophils # Seg Neutrophils # Man Lymphocytes # (Manual) APTT POC ABG pH ABG pH POC ABG pCO2 POC ABG pO2 ABG pO2 ABG HCO3 ABG Base Excess ABG Hemoglobin VBG pH Oxyhemoglobin Sodium Potassium Chloride Carbon Dioxide BUN Creatinine Glucose POC Glucose 181 H 194 H 209 H Lactic Acid Calcium AST Alkaline Phosphatase CK-MB (CK-2) CK-MB (CK-2) Rel Index Albumin TSH Urine WBC (Auto) Salicylates 02/02/17 02/02/17 02/02/17 11:46 11:46 17:47 WBC RBC 2.94 L Hgb 7.5 L Hct 23.0 L MCV 78 L MCH 25 L RDW 16.9 H Plt Count 520 H Lymph % (Auto) [place] % (Auto) Eos % (Auto) Seg Neutrophils % Seg Neuts % (Manual) Lymphocytes % (Manual) Seg Neutrophils # Seg Neutrophils # Man Lymphocytes # (Manual) APTT POC ABG pH ABG pH POC ABG pCO2 POC ABG pO2 ABG pO2 ABG HCO3 ABG Base Excess ABG Hemoglobin VBG pH Oxyhemoglobin Sodium Potassium Chloride Carbon Dioxide BUN Creatinine 0.6 L Glucose 189 H POC Glucose 147 H Lactic Acid Calcium 8.1 L AST Alkaline Phosphatase CK-MB (CK-2) CK-MB (CK-2) Rel Index Albumin TSH Urine WBC (Auto) Salicylates 02/02/17 02/03/17 02/03/17 23:32 05:53 11:19 WBC RBC Hgb Hct MCV MCH RDW Plt Count Lymph % (Auto) [place] % (Auto) Eos % (Auto) Seg Neutrophils % Seg Neuts % (Manual) Lymphocytes % (Manual) Seg Neutrophils # Seg Neutrophils # Man Lymphocytes # (Manual) APTT POC ABG pH ABG pH POC ABG pCO2 POC ABG pO2 ABG pO2 ABG HCO3 ABG Base Excess ABG Hemoglobin VBG pH Oxyhemoglobin Sodium Potassium Chloride Carbon Dioxide BUN Creatinine Glucose POC Glucose 176 H 224 H 228 H Lactic Acid Calcium AST Alkaline Phosphatase CK-MB (CK-2) CK-MB (CK-2) Rel Index Albumin TSH Urine WBC (Auto) Salicylates 02/03/17 02/03/17 02/04/17 16:59 23:38 05:45 WBC RBC Hgb Hct MCV MCH RDW Plt Count Lymph % (Auto) [place] % (Auto) Eos % (Auto) Seg Neutrophils % Seg Neuts % (Manual) Lymphocytes % (Manual) Seg Neutrophils # Seg Neutrophils # Man Lymphocytes # (Manual) APTT POC ABG pH ABG pH POC ABG pCO2 POC ABG pO2 ABG pO2 ABG HCO3 ABG Base Excess ABG Hemoglobin VBG pH Oxyhemoglobin Sodium Potassium Chloride Carbon Dioxide BUN Creatinine Glucose POC Glucose 189 H 191 H 251 H Lactic Acid Calcium AST Alkaline Phosphatase CK-MB (CK-2) CK-MB (CK-2) Rel Index Albumin TSH Urine WBC (Auto) Salicylates 02/04/17 02/04/17 02/05/17 11:20 17:20 00:17 WBC RBC Hgb Hct MCV MCH RDW Plt Count Lymph % (Auto) [place] % (Auto) Eos % (Auto) Seg Neutrophils % Seg Neuts % (Manual) Lymphocytes % (Manual) Seg Neutrophils # Seg Neutrophils # Man Lymphocytes # (Manual) APTT POC ABG pH ABG pH POC ABG pCO2 POC ABG pO2 ABG pO2 ABG HCO3 ABG Base Excess ABG Hemoglobin VBG pH Oxyhemoglobin Sodium Potassium Chloride Carbon Dioxide BUN Creatinine Glucose POC Glucose 243 H 163 H 200 H Lactic Acid Calcium AST Alkaline Phosphatase CK-MB (CK-2) CK-MB (CK-2) Rel Index Albumin TSH Urine WBC (Auto) Salicylates 02/05/17 02/05/17 02/05/17 05:38 12:38 16:29 WBC RBC Hgb Hct MCV MCH RDW Plt Count Lymph % (Auto) [place] % (Auto) Eos % (Auto) Seg Neutrophils % Seg Neuts % (Manual) Lymphocytes % (Manual) Seg Neutrophils # Seg Neutrophils # Man Lymphocytes # (Manual) APTT POC ABG pH ABG pH POC ABG pCO2 POC ABG pO2 ABG pO2 ABG HCO3 ABG Base Excess ABG Hemoglobin VBG pH Oxyhemoglobin Sodium Potassium Chloride Carbon Dioxide BUN Creatinine Glucose POC Glucose 248 H 241 H 257 H Lactic Acid Calcium AST Alkaline Phosphatase CK-MB (CK-2) CK-MB (CK-2) Rel Index Albumin TSH Urine WBC (Auto) Salicylates 02/05/17 02/06/17 02/06/17 23:56 05:30 11:50 WBC RBC Hgb Hct MCV MCH RDW Plt Count Lymph % (Auto) [place] % (Auto) Eos % (Auto) Seg Neutrophils % Seg Neuts % (Manual) Lymphocytes % (Manual) Seg Neutrophils # Seg Neutrophils # Man Lymphocytes # (Manual) APTT POC ABG pH ABG pH POC ABG pCO2 POC ABG pO2 ABG pO2 ABG HCO3 ABG Base Excess ABG Hemoglobin VBG pH Oxyhemoglobin Sodium Potassium Chloride Carbon Dioxide BUN Creatinine Glucose POC Glucose 258 H 120 H 254 H Lactic Acid Calcium AST Alkaline Phosphatase CK-MB (CK-2) CK-MB (CK-2) Rel Index Albumin TSH Urine WBC (Auto) Salicylates 02/06/17 02/06/17 02/07/17 17:11 23:50 05:22 WBC RBC Hgb Hct MCV MCH RDW Plt Count Lymph % (Auto) [place] % (Auto) Eos % (Auto) Seg Neutrophils % Seg Neuts % (Manual) Lymphocytes % (Manual) Seg Neutrophils # Seg Neutrophils # Man Lymphocytes # (Manual) APTT POC ABG pH ABG pH POC ABG pCO2 POC ABG pO2 ABG pO2 ABG HCO3 ABG Base Excess ABG Hemoglobin VBG pH Oxyhemoglobin Sodium Potassium Chloride Carbon Dioxide BUN Creatinine Glucose POC Glucose 149 H 240 H 258 H Lactic Acid Calcium AST Alkaline Phosphatase CK-MB (CK-2) CK-MB (CK-2) Rel Index Albumin TSH Urine WBC (Auto) Salicylates 02/07/17 02/07/17 02/07/17 11:15 18:33 23:59 WBC RBC Hgb Hct MCV MCH RDW Plt Count Lymph % (Auto) [place] % (Auto) Eos % (Auto) Seg Neutrophils % Seg Neuts % (Manual) Lymphocytes % (Manual) Seg Neutrophils # Seg Neutrophils # Man Lymphocytes # (Manual) APTT POC ABG pH ABG pH POC ABG pCO2 POC ABG pO2 ABG pO2 ABG HCO3 ABG Base Excess ABG Hemoglobin VBG pH Oxyhemoglobin Sodium Potassium Chloride Carbon Dioxide BUN Creatinine Glucose POC Glucose 239 H 176 H 186 H Lactic Acid Calcium AST Alkaline Phosphatase CK-MB (CK-2) CK-MB (CK-2) Rel Index Albumin TSH Urine WBC (Auto) Salicylates 02/08/17 02/08/17 02/08/17 06:15 11:55 16:55 WBC RBC Hgb Hct MCV MCH RDW Plt Count Lymph % (Auto) [place] % (Auto) Eos % (Auto) Seg Neutrophils % Seg Neuts % (Manual) Lymphocytes % (Manual) Seg Neutrophils # Seg Neutrophils # Man Lymphocytes # (Manual) APTT POC ABG pH ABG pH POC ABG pCO2 POC ABG pO2 ABG pO2 ABG HCO3 ABG Base Excess ABG Hemoglobin VBG pH Oxyhemoglobin Sodium Potassium Chloride Carbon Dioxide BUN Creatinine Glucose POC Glucose 195 H 129 H 246 H Lactic Acid Calcium AST Alkaline Phosphatase CK-MB (CK-2) CK-MB (CK-2) Rel Index Albumin TSH Urine WBC (Auto) Salicylates 02/08/17 02/09/17 02/09/17 23:51 05:51 07:24 WBC 14.7 H RBC 3.39 L Hgb 8.9 L Hct 26.4 L MCV 78 L MCH 26 L RDW 18.4 H Plt Count 670 H Lymph % (Auto) 11.8 L [place] % (Auto) Eos % (Auto) Seg Neutrophils % 81.2 H Seg Neuts % (Manual) Lymphocytes % (Manual) Seg Neutrophils # 11.9 H Seg Neutrophils # Man Lymphocytes # (Manual) APTT POC ABG pH ABG pH POC ABG pCO2 POC ABG pO2 ABG pO2 ABG HCO3 ABG Base Excess ABG Hemoglobin VBG pH Oxyhemoglobin Sodium Potassium Chloride Carbon Dioxide BUN Creatinine Glucose POC Glucose 262 H 295 H Lactic Acid Calcium AST Alkaline Phosphatase CK-MB (CK-2) CK-MB (CK-2) Rel Index Albumin TSH Urine WBC (Auto) Salicylates 02/09/17 02/09/17 02/09/17 07:24 12:08 18:39 WBC RBC Hgb Hct MCV MCH RDW Plt Count Lymph % (Auto) [place] % (Auto) Eos % (Auto) Seg Neutrophils % Seg Neuts % (Manual) Lymphocytes % (Manual) Seg Neutrophils # Seg Neutrophils # Man Lymphocytes # (Manual) APTT POC ABG pH ABG pH POC ABG pCO2 POC ABG pO2 ABG pO2 ABG HCO3 ABG Base Excess ABG Hemoglobin VBG pH Oxyhemoglobin Sodium Potassium Chloride 95.5 L Carbon Dioxide BUN 52 H Creatinine Glucose 277 H POC Glucose 236 H 151 H Lactic Acid Calcium AST Alkaline Phosphatase CK-MB (CK-2) CK-MB (CK-2) Rel Index Albumin TSH Urine WBC (Auto) Salicylates 02/10/17 02/10/17 02/10/17 00:01 05:44 11:21 WBC RBC Hgb Hct MCV MCH RDW Plt Count Lymph % (Auto) [place] % (Auto) Eos % (Auto) Seg Neutrophils % Seg Neuts % (Manual) Lymphocytes % (Manual) Seg Neutrophils # Seg Neutrophils # Man Lymphocytes # (Manual) APTT POC ABG pH ABG pH POC ABG pCO2 POC ABG pO2 ABG pO2 ABG HCO3 ABG Base Excess ABG Hemoglobin VBG pH Oxyhemoglobin Sodium Potassium Chloride Carbon Dioxide BUN Creatinine Glucose POC Glucose 210 H 201 H 233 H Lactic Acid Calcium AST Alkaline Phosphatase CK-MB (CK-2) CK-MB (CK-2) Rel Index Albumin TSH Urine WBC (Auto) Salicylates 02/10/17 02/10/17 02/11/17 17:29 23:56 05:24 WBC RBC Hgb Hct MCV MCH RDW Plt Count Lymph % (Auto) [place] % (Auto) Eos % (Auto) Seg Neutrophils % Seg Neuts % (Manual) Lymphocytes % (Manual) Seg Neutrophils # Seg Neutrophils # Man Lymphocytes # (Manual) APTT POC ABG pH ABG pH POC ABG pCO2 POC ABG pO2 ABG pO2 ABG HCO3 ABG Base Excess ABG Hemoglobin VBG pH Oxyhemoglobin Sodium Potassium Chloride Carbon Dioxide BUN Creatinine Glucose POC Glucose 167 H 191 H 135 H Lactic Acid Calcium AST Alkaline Phosphatase CK-MB (CK-2) CK-MB (CK-2) Rel Index Albumin TSH Urine WBC (Auto) Salicylates 02/11/17 02/11/17 02/11/17 12:25 17:03 23:59 WBC RBC Hgb Hct MCV MCH RDW Plt Count Lymph % (Auto) [place] % (Auto) Eos % (Auto) Seg Neutrophils % Seg Neuts % (Manual) Lymphocytes % (Manual) Seg Neutrophils # Seg Neutrophils # Man Lymphocytes # (Manual) APTT POC ABG pH ABG pH POC ABG pCO2 POC ABG pO2 ABG pO2 ABG HCO3 ABG Base Excess ABG Hemoglobin VBG pH Oxyhemoglobin Sodium Potassium Chloride Carbon Dioxide BUN Creatinine Glucose POC Glucose 275 H 172 H 215 H Lactic Acid Calcium AST Alkaline Phosphatase CK-MB (CK-2) CK-MB (CK-2) Rel Index Albumin TSH Urine WBC (Auto) Salicylates 02/12/17 02/12/17 02/12/17 05:39 11:33 17:55 WBC RBC Hgb Hct MCV MCH RDW Plt Count Lymph % (Auto) [place] % (Auto) Eos % (Auto) Seg Neutrophils % Seg Neuts % (Manual) Lymphocytes % (Manual) Seg Neutrophils # Seg Neutrophils # Man Lymphocytes # (Manual) APTT POC ABG pH ABG pH POC ABG pCO2 POC ABG pO2 ABG pO2 ABG HCO3 ABG Base Excess ABG Hemoglobin VBG pH Oxyhemoglobin Sodium Potassium Chloride Carbon Dioxide BUN Creatinine Glucose POC Glucose 261 H 217 H 172 H Lactic Acid Calcium AST Alkaline Phosphatase CK-MB (CK-2) CK-MB (CK-2) Rel Index Albumin TSH Urine WBC (Auto) Salicylates 02/13/17 02/13/17 02/13/17 00:25 06:46 11:26 WBC RBC Hgb Hct MCV MCH RDW Plt Count Lymph % (Auto) [place] % (Auto) Eos % (Auto) Seg Neutrophils % Seg Neuts % (Manual) Lymphocytes % (Manual) Seg Neutrophils # Seg Neutrophils # Man Lymphocytes # (Manual) APTT POC ABG pH ABG pH POC ABG pCO2 POC ABG pO2 ABG pO2 ABG HCO3 ABG Base Excess ABG Hemoglobin VBG pH Oxyhemoglobin Sodium Potassium Chloride Carbon Dioxide BUN Creatinine Glucose POC Glucose 207 H 219 H 231 H Lactic Acid Calcium AST Alkaline Phosphatase CK-MB (CK-2) CK-MB (CK-2) Rel Index Albumin TSH Urine WBC (Auto) Salicylates 02/13/17 02/13/17 02/14/17 17:12 23:44 05:44 WBC RBC Hgb Hct MCV MCH RDW Plt Count Lymph % (Auto) [place] % (Auto) Eos % (Auto) Seg Neutrophils % Seg Neuts % (Manual) Lymphocytes % (Manual) Seg Neutrophils # Seg Neutrophils # Man Lymphocytes # (Manual) APTT POC ABG pH ABG pH POC ABG pCO2 POC ABG pO2 ABG pO2 ABG HCO3 ABG Base Excess ABG Hemoglobin VBG pH Oxyhemoglobin Sodium Potassium Chloride Carbon Dioxide BUN Creatinine Glucose POC Glucose 190 H 256 H 184 H Lactic Acid Calcium AST Alkaline Phosphatase CK-MB (CK-2) CK-MB (CK-2) Rel Index Albumin TSH Urine WBC (Auto) Salicylates 02/14/17 02/14/17 02/14/17 12:21 17:57 23:18 WBC RBC Hgb Hct MCV MCH RDW Plt Count Lymph % (Auto) [place] % (Auto) Eos % (Auto) Seg Neutrophils % Seg Neuts % (Manual) Lymphocytes % (Manual) Seg Neutrophils # Seg Neutrophils # Man Lymphocytes # (Manual) APTT POC ABG pH ABG pH POC ABG pCO2 POC ABG pO2 ABG pO2 ABG HCO3 ABG Base Excess ABG Hemoglobin VBG pH Oxyhemoglobin Sodium Potassium Chloride Carbon Dioxide BUN Creatinine Glucose POC Glucose 233 H 155 H 165 H Lactic Acid Calcium AST Alkaline Phosphatase CK-MB (CK-2) CK-MB (CK-2) Rel Index Albumin TSH Urine WBC (Auto) Salicylates 02/15/17 02/15/17 02/15/17 05:33 11:45 17:20 WBC RBC Hgb Hct MCV MCH RDW Plt Count Lymph % (Auto) [place] % (Auto) Eos % (Auto) Seg Neutrophils % Seg Neuts % (Manual) Lymphocytes % (Manual) Seg Neutrophils # Seg Neutrophils # Man Lymphocytes # (Manual) APTT POC ABG pH ABG pH POC ABG pCO2 POC ABG pO2 ABG pO2 ABG HCO3 ABG Base Excess ABG Hemoglobin VBG pH Oxyhemoglobin Sodium Potassium Chloride Carbon Dioxide BUN Creatinine Glucose POC Glucose 239 H 130 H 189 H Lactic Acid Calcium AST Alkaline Phosphatase CK-MB (CK-2) CK-MB (CK-2) Rel Index Albumin TSH Urine WBC (Auto) Salicylates 02/16/17 02/16/17 02/16/17 00:14 05:09 12:31 WBC RBC Hgb Hct MCV MCH RDW Plt Count Lymph % (Auto) [place] % (Auto) Eos % (Auto) Seg Neutrophils % Seg Neuts % (Manual) Lymphocytes % (Manual) Seg Neutrophils # Seg Neutrophils # Man Lymphocytes # (Manual) APTT POC ABG pH ABG pH POC ABG pCO2 POC ABG pO2 ABG pO2 ABG HCO3 ABG Base Excess ABG Hemoglobin VBG pH Oxyhemoglobin Sodium Potassium Chloride Carbon Dioxide BUN Creatinine Glucose POC Glucose 197 H 226 H 178 H Lactic Acid Calcium AST Alkaline Phosphatase CK-MB (CK-2) CK-MB (CK-2) Rel Index Albumin TSH Urine WBC (Auto) Salicylates 02/16/17 02/16/17 02/17/17 16:35 23:49 05:37 WBC RBC Hgb Hct MCV MCH RDW Plt Count Lymph % (Auto) [place] % (Auto) Eos % (Auto) Seg Neutrophils % Seg Neuts % (Manual) Lymphocytes % (Manual) Seg Neutrophils # Seg Neutrophils # Man Lymphocytes # (Manual) APTT POC ABG pH ABG pH POC ABG pCO2 POC ABG pO2 ABG pO2 ABG HCO3 ABG Base Excess ABG Hemoglobin VBG pH Oxyhemoglobin Sodium Potassium Chloride Carbon Dioxide BUN Creatinine Glucose POC Glucose 174 H 62 L 153 H Lactic Acid Calcium AST Alkaline Phosphatase CK-MB (CK-2) CK-MB (CK-2) Rel Index Albumin TSH Urine WBC (Auto) Salicylates 02/17/17 02/17/17 02/17/17 11:39 17:02 22:24 WBC RBC Hgb Hct MCV MCH RDW Plt Count Lymph % (Auto) [place] % (Auto) Eos % (Auto) Seg Neutrophils % Seg Neuts % (Manual) Lymphocytes % (Manual) Seg Neutrophils # Seg Neutrophils # Man Lymphocytes # (Manual) APTT POC ABG pH ABG pH POC ABG pCO2 POC ABG pO2 ABG pO2 ABG HCO3 ABG Base Excess ABG Hemoglobin VBG pH Oxyhemoglobin Sodium Potassium Chloride Carbon Dioxide BUN Creatinine Glucose POC Glucose 231 H 112 H 116 H Lactic Acid Calcium AST Alkaline Phosphatase CK-MB (CK-2) CK-MB (CK-2) Rel Index Albumin TSH Urine WBC (Auto) Salicylates 02/18/17 02/19/17 02/19/17 15:34 05:09 07:57 WBC RBC Hgb Hct MCV MCH RDW Plt Count Lymph % (Auto) [place] % (Auto) Eos % (Auto) Seg Neutrophils % Seg Neuts % (Manual) Lymphocytes % (Manual) Seg Neutrophils # Seg Neutrophils # Man Lymphocytes # (Manual) APTT POC ABG pH ABG pH POC ABG pCO2 POC ABG pO2 ABG pO2 ABG HCO3 ABG Base Excess ABG Hemoglobin VBG pH Oxyhemoglobin Sodium Potassium Chloride Carbon Dioxide BUN Creatinine Glucose POC Glucose 215 H 218 H 283 H Lactic Acid Calcium AST Alkaline Phosphatase CK-MB (CK-2) CK-MB (CK-2) Rel Index Albumin TSH Urine WBC (Auto) Salicylates 02/19/17 02/19/17 02/20/17 14:49 22:10 05:10 WBC RBC Hgb Hct MCV MCH RDW Plt Count Lymph % (Auto) [place] % (Auto) Eos % (Auto) Seg Neutrophils % Seg Neuts % (Manual) Lymphocytes % (Manual) Seg Neutrophils # Seg Neutrophils # Man Lymphocytes # (Manual) APTT POC ABG pH ABG pH POC ABG pCO2 POC ABG pO2 ABG pO2 ABG HCO3 ABG Base Excess ABG Hemoglobin VBG pH Oxyhemoglobin Sodium Potassium Chloride Carbon Dioxide BUN Creatinine Glucose POC Glucose 290 H 169 H 209 H Lactic Acid Calcium AST Alkaline Phosphatase CK-MB (CK-2) CK-MB (CK-2) Rel Index Albumin TSH Urine WBC (Auto) Salicylates 02/20/17 02/20/17 02/21/17 15:05 21:52 02:00 WBC RBC Hgb Hct MCV MCH RDW Plt Count Lymph % (Auto) [place] % (Auto) Eos % (Auto) Seg Neutrophils % Seg Neuts % (Manual) Lymphocytes % (Manual) Seg Neutrophils # Seg Neutrophils # Man Lymphocytes # (Manual) APTT POC ABG pH ABG pH POC ABG pCO2 POC ABG pO2 ABG pO2 ABG HCO3 ABG Base Excess ABG Hemoglobin VBG pH Oxyhemoglobin Sodium Potassium Chloride Carbon Dioxide BUN Creatinine Glucose POC Glucose 172 H 209 H 216 H Lactic Acid Calcium AST Alkaline Phosphatase CK-MB (CK-2) CK-MB (CK-2) Rel Index Albumin TSH Urine WBC (Auto) Salicylates 02/21/17 02/21/17 02/21/17 04:54 14:43 17:47 WBC RBC Hgb Hct MCV MCH RDW Plt Count Lymph % (Auto) [place] % (Auto) Eos % (Auto) Seg Neutrophils % Seg Neuts % (Manual) Lymphocytes % (Manual) Seg Neutrophils # Seg Neutrophils # Man Lymphocytes # (Manual) APTT POC ABG pH ABG pH POC ABG pCO2 POC ABG pO2 ABG pO2 ABG HCO3 ABG Base Excess ABG Hemoglobin VBG pH Oxyhemoglobin Sodium Potassium Chloride Carbon Dioxide BUN Creatinine Glucose POC Glucose 227 H 290 H 220 H Lactic Acid Calcium AST Alkaline Phosphatase CK-MB (CK-2) CK-MB (CK-2) Rel Index Albumin TSH Urine WBC (Auto) Salicylates 02/21/17 02/22/17 02/22/17 22:02 04:52 15:25 WBC RBC Hgb Hct MCV MCH RDW Plt Count Lymph % (Auto) [place] % (Auto) Eos % (Auto) Seg Neutrophils % Seg Neuts % (Manual) Lymphocytes % (Manual) Seg Neutrophils # Seg Neutrophils # Man Lymphocytes # (Manual) APTT POC ABG pH ABG pH POC ABG pCO2 POC ABG pO2 ABG pO2 ABG HCO3 ABG Base Excess ABG Hemoglobin VBG pH Oxyhemoglobin Sodium Potassium Chloride Carbon Dioxide BUN Creatinine Glucose POC Glucose 246 H 212 H 236 H Lactic Acid Calcium AST Alkaline Phosphatase CK-MB (CK-2) CK-MB (CK-2) Rel Index Albumin TSH Urine WBC (Auto) Salicylates 02/22/17 02/23/17 02/23/17 21:33 06:04 10:00 WBC RBC Hgb Hct MCV MCH RDW Plt Count Lymph % (Auto) [place] % (Auto) Eos % (Auto) Seg Neutrophils % Seg Neuts % (Manual) Lymphocytes % (Manual) Seg Neutrophils # Seg Neutrophils # Man Lymphocytes # (Manual) APTT POC ABG pH ABG pH POC ABG pCO2 POC ABG pO2 ABG pO2 ABG HCO3 ABG Base Excess ABG Hemoglobin VBG pH Oxyhemoglobin Sodium Potassium Chloride Carbon Dioxide BUN Creatinine Glucose POC Glucose 255 H 208 H 174 H Lactic Acid Calcium AST Alkaline Phosphatase CK-MB (CK-2) CK-MB (CK-2) Rel Index Albumin TSH Urine WBC (Auto) Salicylates 02/23/17 02/23/17 02/23/17 12:52 17:15 21:51 WBC RBC Hgb Hct MCV MCH RDW Plt Count Lymph % (Auto) [place] % (Auto) Eos % (Auto) Seg Neutrophils % Seg Neuts % (Manual) Lymphocytes % (Manual) Seg Neutrophils # Seg Neutrophils # Man Lymphocytes # (Manual) APTT POC ABG pH ABG pH POC ABG pCO2 POC ABG pO2 ABG pO2 ABG HCO3 ABG Base Excess ABG Hemoglobin VBG pH Oxyhemoglobin Sodium Potassium Chloride Carbon Dioxide BUN Creatinine Glucose POC Glucose 203 H 269 H 205 H Lactic Acid Calcium AST Alkaline Phosphatase CK-MB (CK-2) CK-MB (CK-2) Rel Index Albumin TSH Urine WBC (Auto) Salicylates
[2017-02-24] MEDS: NOVOLOG SUB-Q SCH (18:14)
[2017-02-25] MEDS: SYNTHROID PO SCH ×2 (07:00→07:02)
[2017-02-25] MEDS: NOVOLOG SUB-Q SCH ×4 (07:01→22:45)
[2017-02-25] MEDS: NORMODYNE PO SCH ×2 (09:34→22:45)
[2017-02-25] MEDS: HEPARIN SUB-Q SCH ×2 (09:34→22:00)
[2017-02-25] MEDS: PEPCID PO SCH ×2 (09:35→22:45)
[2017-02-25] MEDS ORDERED: LEVEMIR (NF) SUB-Q SCH (10:00)
--- NOTE | 2017-02-25 11:48 | Progress Note ---
Assessment and Plan Hypoglycemic brain injury Persistent vegetative state Metabolic encephalopathy Hypoglycemia/hypothermia, resolved Acute respiratory failure mechanical ventilator greater than 96 hours UTI with klebsiella, treated ( Cx + on 01/28) hyponatremia, Hypothyroidism IDDM Hypertension low grade Fever - Cont supportive care and current medication. Monitor vitals, repeat cx on - no growth - increase dose of long acting insulin - Patient is DNR- awaiting hospice placement, needs guardianship from the state to give consent, as has no family to give consent -at this time he is COMFORT CARE as per Ethics committee recommendation. Brief History: 51 YO Male with CKD,HTN, DM presents to ED after found down and unresponsive by his neighbor, who subsequently called EMS. Upon arrival, patient found unresponsive on the floor with a serum glucose of 21, patient has a known history of alcohol abuse and delirium tremens. The patient was administered D5 approximate 500 mls during transport without change in mental status/level of consciousness. Pt seen and evaluated in ED was was found to be unable to protect his airway. Pt intubated and placed on vent support. Pt found to have evidence of hypothyroidism. He was started on Synthroid. He has since been in the ICU. director of maternity services try to locate family, even spoke to the family who he lives with. They themselves were unaware of any family members. After ethics committee meeting on the patient. The decision was made to make him DO NOT RESUSCITATE and to transfer him to hospice. Given his very poor prognosis and poor likelihood of recovery. It was decided that was not his best interest to get trach and PEG. Therefore he'll be transferred to the hospice intubated. Now Awaiting on court ordered /state guardianship. Active meds: Generic Name Dose Route Start Last Admin Trade Name Freq PRN Reason Stop Dose Admin Acetaminophen 650 mg 01/14/17 17:29 02/20/17 01:30 Tylenol FEEDTUBE 650 mg Q6H PRN Administration Non Cardiac Pain Or Temp>101 Lipase/Protease/Amylase 1 each 01/14/17 14:33 Pancreashley Morales 10,500 Unit FEEDTUBE PRN PRN For Clogged Feeding Tube Dextrose 50 gm 01/31/17 23:13 02/17/17 00:10 D50w (25gm) Vial IV 50 gm PRN PRN Administration Hypoglycemia Famotidine 20 mg 01/17/17 10:00 02/25/17 09:35 Pepcid PO 20 mg BID PAOLO Administration Heparin Sodium (Porcine) 5,000 unit 01/10/17 22:00 02/25/17 09:34 Heparin SUB-Q 5,000 unit Q12HR PAOLO Administration Hydralazine HCl 10 mg 01/10/17 13:01 02/02/17 06:14 Apresoline IV 10 mg Q4HR PRN Administration Hypertension Hydrophilic Ointment 1 applic 01/09/17 10:13 Vaseline Lip Therapy TP Q2HR PRN Dry Lips Insulin Aspart 0 units 02/17/17 22:00 02/25/17 07:02 Novolog SUB-Q 6 units Q8HR PAOLO Administration Protocol Insulin Detemir 12 units 02/25/17 10:00 02/25/17 11:44 Levemir SUB-Q 12 units DAILY PAOLO Administration Labetalol HCl 200 mg 01/09/17 13:00 02/25/17 09:34 Normodyne PO 200 mg BID PAOLO Administration Levothyroxine Sodium 100 mcg 01/15/17 06:00 02/25/17 07:02 Synthroid PO 100 mcg DAILY@0600 PAOLO Administration Loperamide HCl 2 mg 02/04/17 10:57 02/16/17 06:33 Imodium A-D PO 2 mg Q2H PRN Administration Diarrhea Multi-Ingred Cream/Lotion/Oil/Oint 1 applic 01/09/17 10:13 Artificial Tears Ophth Oint OU Q4HR PRN Dry Eye(s) Simple Syrup 15 ml 01/14/17 14:33 01/31/17 23:19 Simple Syrup FEEDTUBE 15 ml PRN PRN Administration Hypoglycemia Simple Syrup 30 ml 01/14/17 14:33 Simple Syrup FEEDTUBE PRN PRN Hypoglycemia Sodium Bicarbonate 325 mg 01/14/17 14:33 Sodium Bicarbonate FEEDTUBE PRN PRN For Clogged Feeding Tube Hospitalist Physical - Physical exam Narrative exam: General: comatose HEENT: Moist mucous membranes, , no lymphadenopathy Neck: supple Cardiac: S1-S2 heard Lungs: mechnical ventilated breath sounds Abdomen: soft , nontender, nondistended, bowel sounds positive Extremities: no edema clubbing or cyanosis Skin: no rash or lesions Neurologic: opens eyes, has corneal reflex, pupils minimally responsive, no response to deep painful stimuli Subjective Date of service: 02/25/17 Principal diagnosis: Acute respiratory failure,encephalopathy Interval history: patient remains comatose, no movement of extremities afebrile o/n BG > 300 this am Objective - Constitutional Vitals: Vital Signs - 12hr 02/25/17 02/25/17 02/25/17 00:00 02:01 03:30 Temperature Pulse Rate 70 70 70 Pulse Rate [ From Monitor] Respiratory 13 15 Rate Blood Pressure 129/81 129/81 129/81 O2 Sat by Pulse 100 100 100 Oximetry 02/25/17 02/25/17 02/25/17 03:36 04:01 06:01 Temperature 99.6 F Pulse Rate 69 70 Pulse Rate [ From Monitor] Respiratory 17 16 Rate Blood Pressure 129/81 129/81 O2 Sat by Pulse 100 100 Oximetry 02/25/17 02/25/17 02/25/17 08:00 09:05 09:34 Temperature 98.6 F Pulse Rate 74 Pulse Rate [ 74 From Monitor] Respiratory 16 Rate Blood Pressure 127/82 O2 Sat by Pulse 100 Oximetry 02/25/17 02/25/17 02/25/17 10:00 10:05 10:30 Temperature Pulse Rate 68 69 66 Pulse Rate [ From Monitor] Respiratory 20 Rate Blood Pressure 127/82 127/82 O2 Sat by Pulse 100 100 Oximetry 02/25/17 11:41 Temperature 98.5 F Pulse Rate Pulse Rate [ From Monitor] Respiratory Rate Blood Pressure O2 Sat by Pulse Oximetry - Labs CBC & Chem 7: 02/09/17 07:24 02/09/17 07:24 Labs: Abnormal lab results 02/24/17 02/24/17 02/24/17 Range/Units 10:23 17:45 21:24 POC Glucose 280 H 239 H 254 H (70-105) 02/25/17 02/25/17 Range/Units 02:12 05:17 POC Glucose 296 H 332 H (70-105)
--- NOTE | 2017-02-25 12:24 | Progress Note ---
Assessment and Plan Acute respiratory failure, vent/ETT dependent.Low VT's on spontaneous breathing Fever. None today Hypoglycemia/hypothermia episode- Metabolic encephalopathy. Severe. 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 Resolved Recommendations Currently the patient is DO NOT RESUSCITATE. Waiting for final decision from court order regarding current support versus termination of care Continue PSV/CPAP trials,but unable to extubate due to low VT's , airway protection issues Poor prognosis; complex patient. Critical care time with a 31 minutes of [id number] evaluation and coordination of care Subjective Date of service: 02/25/17 Principal diagnosis: Acute respiratory failure,encephalopathy Interval history: Intubated. Nonresponsive.on PSV/CPAP Objective Vital Signs - 12hr 02/25/17 02/25/17 02/25/17 02:01 03:30 03:36 Temperature 99.6 F Pulse Rate 70 70 Pulse Rate [ From Monitor] Respiratory 15 Rate Blood Pressure 129/81 129/81 O2 Sat by Pulse 100 100 Oximetry 02/25/17 02/25/17 02/25/17 04:01 06:01 08:00 Temperature 98.6 F Pulse Rate 69 70 Pulse Rate [ From Monitor] Respiratory 17 16 Rate Blood Pressure 129/81 129/81 O2 Sat by Pulse 100 100 Oximetry 02/25/17 02/25/17 02/25/17 09:05 09:34 10:00 Temperature Pulse Rate 74 68 Pulse Rate [ 74 From Monitor] Respiratory 16 Rate Blood Pressure 127/82 127/82 O2 Sat by Pulse 100 100 Oximetry 02/25/17 02/25/17 02/25/17 10:05 10:30 11:41 Temperature 98.5 F Pulse Rate 69 66 Pulse Rate [ From Monitor] Respiratory 20 Rate Blood Pressure 127/82 O2 Sat by Pulse 100 Oximetry Constitutional: comatose, other (orally intubated, on vent support) Eyes: non-icteric ENT: oropharynx moist Neck: supple, no JVD Effort: normal Ascultation: Bilateral: clear, diminished breath sounds Cardiovascular: regular rate and rhythm Gastrointestinal: normoactive bowel sounds, soft, non-tender, non-distended Integumentary: normal Extremities: no cyanosis, no edema, pink and warm Neurologic: other (unchanged-unresponsive except for nonfocal response to pain stimulation.+ spontaneous breathing on PSV) Psychiatric: other (unable to obtain) CBC and BMP: 02/09/17 07:24 02/09/17 07:24 ABG, PT/INR, D-dimer: ABG POC ABG pH 7.442 (7.35-7.45) 01/31/17 18:55 ABG pH 7.420 pH Units (7.350-7.450) 01/17/17 04:35 POC ABG pCO2 32.8 (35-45) L 01/31/17 18:55 ABG pCO2 34.5 mm Hg 01/17/17 04:35 POC ABG pO2 82 (80-105) 01/31/17 18:55 ABG pO2 160.3 mm Hg (80.0-90.0) H 01/17/17 04:35 POC ABG HCO3 22.4 01/31/17 18:55 POC ABG Total CO2 23 01/31/17 18:55 POC ABG O2 Sat 97 01/31/17 18:55 ABG O2 Saturation 99.0 % (95.0-99.0) 01/17/17 04:35 PT/INR, D-dimer PT 14.1 Sec. (12.2-14.9) 01/17/17 04:10 INR 1.04 (0.87-1.13) 01/17/17 04:10 Abnormal lab findings: Abnormal Labs 01/09/17 01/09/17 01/09/17 10:16 10:16 10:16 WBC RBC Hgb 9.7 L Hct 28.4 L MCV 76 L MCH 26 L RDW 17.2 H Plt Count 448 H Lymph % (Auto) [place] % (Auto) Eos % (Auto) Seg Neutrophils % 79.5 H Seg Neuts % (Manual) Lymphocytes % (Manual) Seg Neutrophils # Seg Neutrophils # Man Lymphocytes # (Manual) APTT 39.6 H POC ABG pH ABG pH POC ABG pCO2 POC ABG pO2 ABG pO2 ABG HCO3 ABG Base Excess ABG Hemoglobin VBG pH Oxyhemoglobin Sodium 132 L Potassium Chloride 96.7 L Carbon Dioxide 21 L BUN 34 H Creatinine Glucose POC Glucose Lactic Acid Calcium 8.3 L AST Alkaline Phosphatase 151 H CK-MB (CK-2) 7.1 H CK-MB (CK-2) Rel Index 5.2 H Albumin 3.3 L TSH Urine WBC (Auto) Salicylates 01/09/17 01/09/17 01/09/17 10:16 10:16 10:16 WBC RBC Hgb Hct MCV MCH RDW Plt Count Lymph % (Auto) [place] % (Auto) Eos % (Auto) Seg Neutrophils % Seg Neuts % (Manual) Lymphocytes % (Manual) Seg Neutrophils # Seg Neutrophils # Man Lymphocytes # (Manual) APTT POC ABG pH ABG pH POC ABG pCO2 POC ABG pO2 ABG pO2 ABG HCO3 ABG Base Excess ABG Hemoglobin VBG pH 7.284 L Oxyhemoglobin Sodium Potassium Chloride Carbon Dioxide BUN Creatinine Glucose POC Glucose Lactic Acid Calcium AST Alkaline Phosphatase CK-MB (CK-2) CK-MB (CK-2) Rel Index Albumin TSH 52.800 H Urine WBC (Auto) Salicylates < 0.3 L 01/09/17 01/09/17 01/09/17 10:23 11:14 12:49 WBC RBC Hgb Hct MCV MCH RDW Plt Count Lymph % (Auto) [place] % (Auto) Eos % (Auto) Seg Neutrophils % Seg Neuts % (Manual) Lymphocytes % (Manual) Seg Neutrophils # Seg Neutrophils # Man Lymphocytes # (Manual) APTT POC ABG pH ABG pH POC ABG pCO2 POC ABG pO2 643 H ABG pO2 ABG HCO3 ABG Base Excess ABG Hemoglobin VBG pH Oxyhemoglobin Sodium Potassium Chloride Carbon Dioxide BUN Creatinine Glucose POC Glucose < 40 L Lactic Acid Calcium AST Alkaline Phosphatase CK-MB (CK-2) CK-MB (CK-2) Rel Index Albumin TSH Urine WBC (Auto) 61.0 H Salicylates 01/09/17 01/09/17 01/09/17 13:13 14:21 15:09 WBC RBC Hgb Hct MCV MCH RDW Plt Count Lymph % (Auto) [place] % (Auto) Eos % (Auto) Seg Neutrophils % Seg Neuts % (Manual) Lymphocytes % (Manual) Seg Neutrophils # Seg Neutrophils # Man Lymphocytes # (Manual) APTT POC ABG pH ABG pH POC ABG pCO2 POC ABG pO2 ABG pO2 ABG HCO3 ABG Base Excess ABG Hemoglobin VBG pH Oxyhemoglobin Sodium Potassium Chloride Carbon Dioxide BUN Creatinine Glucose POC Glucose 128 H 65 L 120 H Lactic Acid Calcium AST Alkaline Phosphatase CK-MB (CK-2) CK-MB (CK-2) Rel Index Albumin TSH Urine WBC (Auto) Salicylates 01/09/17 01/09/17 01/10/17 16:28 17:14 04:30 WBC 24.1 H RBC 3.38 L Hgb 8.5 L Hct 26.0 L MCV 77 L MCH 25 L RDW 17.9 H Plt Count 474 H Lymph % (Auto) [place] % (Auto) Eos % (Auto) Seg Neutrophils % Seg Neuts % (Manual) 88.0 H Lymphocytes % (Manual) 4.0 L Seg Neutrophils # Seg Neutrophils # Man 21.2 H Lymphocytes # (Manual) 1.0 L APTT POC ABG pH ABG pH POC ABG pCO2 POC ABG pO2 ABG pO2 ABG HCO3 ABG Base Excess ABG Hemoglobin VBG pH Oxyhemoglobin Sodium Potassium Chloride Carbon Dioxide BUN Creatinine Glucose POC Glucose 44 L 112 H Lactic Acid Calcium AST Alkaline Phosphatase CK-MB (CK-2) CK-MB (CK-2) Rel Index Albumin TSH Urine WBC (Auto) Salicylates 01/10/17 01/10/17 01/10/17 04:30 05:41 05:45 WBC RBC Hgb Hct MCV MCH RDW Plt Count Lymph % (Auto) [place] % (Auto) Eos % (Auto) Seg Neutrophils % Seg Neuts % (Manual) Lymphocytes % (Manual) Seg Neutrophils # Seg Neutrophils # Man Lymphocytes # (Manual) APTT POC ABG pH ABG pH POC ABG pCO2 26.6 L POC ABG pO2 207 H ABG pO2 ABG HCO3 ABG Base Excess ABG Hemoglobin VBG pH Oxyhemoglobin Sodium Potassium Chloride Carbon Dioxide 17 L BUN 27 H Creatinine Glucose POC Glucose 68 L Lactic Acid Calcium 7.5 L AST Alkaline Phosphatase CK-MB (CK-2) CK-MB (CK-2) Rel Index Albumin TSH Urine WBC (Auto) Salicylates 01/10/17 01/10/17 01/10/17 07:47 10:50 13:41 WBC RBC Hgb Hct MCV MCH RDW Plt Count Lymph % (Auto) [place] % (Auto) Eos % (Auto) Seg Neutrophils % Seg Neuts % (Manual) Lymphocytes % (Manual) Seg Neutrophils # Seg Neutrophils # Man Lymphocytes # (Manual) APTT POC ABG pH ABG pH POC ABG pCO2 POC ABG pO2 ABG pO2 ABG HCO3 ABG Base Excess ABG Hemoglobin VBG pH Oxyhemoglobin Sodium Potassium Chloride Carbon Dioxide BUN Creatinine Glucose POC Glucose 148 H 165 H 114 H Lactic Acid Calcium AST Alkaline Phosphatase CK-MB (CK-2) CK-MB (CK-2) Rel Index Albumin TSH Urine WBC (Auto) Salicylates 01/10/17 01/10/17 01/10/17 20:20 21:39 23:24 WBC RBC Hgb Hct MCV MCH RDW Plt Count Lymph % (Auto) [place] % (Auto) Eos % (Auto) Seg Neutrophils % Seg Neuts % (Manual) Lymphocytes % (Manual) Seg Neutrophils # Seg Neutrophils # Man Lymphocytes # (Manual) APTT POC ABG pH ABG pH POC ABG pCO2 POC ABG pO2 ABG pO2 ABG HCO3 ABG Base Excess ABG Hemoglobin VBG pH Oxyhemoglobin Sodium Potassium Chloride Carbon Dioxide BUN Creatinine Glucose POC Glucose 150 H 175 H 155 H Lactic Acid Calcium AST Alkaline Phosphatase CK-MB (CK-2) CK-MB (CK-2) Rel Index Albumin TSH Urine WBC (Auto) Salicylates 01/11/17 01/11/17 01/11/17 00:19 04:06 05:20 WBC 15.2 H RBC 3.40 L Hgb 8.9 L Hct 26.3 L MCV 78 L MCH 26 L RDW 18.6 H Plt Count 462 H Lymph % (Auto) 13.2 L [place] % (Auto) Eos % (Auto) Seg Neutrophils % 80.8 H Seg Neuts % (Manual) Lymphocytes % (Manual) Seg Neutrophils # 12.3 H Seg Neutrophils # Man Lymphocytes # (Manual) APTT POC ABG pH 7.463 H ABG pH POC ABG pCO2 26.2 L POC ABG pO2 185 H ABG pO2 ABG HCO3 ABG Base Excess ABG Hemoglobin VBG pH Oxyhemoglobin Sodium Potassium Chloride Carbon Dioxide BUN Creatinine Glucose POC Glucose 163 H Lactic Acid Calcium AST Alkaline Phosphatase CK-MB (CK-2) CK-MB (CK-2) Rel Index Albumin TSH Urine WBC (Auto) Salicylates 01/11/17 01/11/17 01/11/17 05:20 06:21 07:57 WBC RBC Hgb Hct MCV MCH RDW Plt Count Lymph % (Auto) [place] % (Auto) Eos % (Auto) Seg Neutrophils % Seg Neuts % (Manual) Lymphocytes % (Manual) Seg Neutrophils # Seg Neutrophils # Man Lymphocytes # (Manual) APTT POC ABG pH ABG pH POC ABG pCO2 POC ABG pO2 ABG pO2 ABG HCO3 ABG Base Excess ABG Hemoglobin VBG pH Oxyhemoglobin Sodium Potassium 3.4 L Chloride 111.5 H Carbon Dioxide 17 L BUN Creatinine Glucose 147 H POC Glucose 139 H 188 H Lactic Acid Calcium 8.0 L AST Alkaline Phosphatase CK-MB (CK-2) CK-MB (CK-2) Rel Index Albumin TSH Urine WBC (Auto) Salicylates 01/11/17 01/11/17 01/11/17 11:46 16:50 23:15 WBC RBC Hgb Hct MCV MCH RDW Plt Count Lymph % (Auto) [place] % (Auto) Eos % (Auto) Seg Neutrophils % Seg Neuts % (Manual) Lymphocytes % (Manual) Seg Neutrophils # Seg Neutrophils # Man Lymphocytes # (Manual) APTT POC ABG pH ABG pH POC ABG pCO2 POC ABG pO2 ABG pO2 ABG HCO3 ABG Base Excess ABG Hemoglobin VBG pH Oxyhemoglobin Sodium Potassium Chloride Carbon Dioxide BUN Creatinine Glucose POC Glucose 199 H 235 H 155 H Lactic Acid Calcium AST Alkaline Phosphatase CK-MB (CK-2) CK-MB (CK-2) Rel Index Albumin TSH Urine WBC (Auto) Salicylates 01/12/17 01/12/17 01/12/17 05:02 06:56 14:50 WBC RBC Hgb Hct MCV MCH RDW Plt Count Lymph % (Auto) [place] % (Auto) Eos % (Auto) Seg Neutrophils % Seg Neuts % (Manual) Lymphocytes % (Manual) Seg Neutrophils # Seg Neutrophils # Man Lymphocytes # (Manual) APTT POC ABG pH ABG pH POC ABG pCO2 28.0 L POC ABG pO2 178 H ABG pO2 ABG HCO3 ABG Base Excess ABG Hemoglobin VBG pH Oxyhemoglobin Sodium Potassium Chloride Carbon Dioxide BUN Creatinine Glucose POC Glucose 119 H 164 H Lactic Acid Calcium AST Alkaline Phosphatase CK-MB (CK-2) CK-MB (CK-2) Rel Index Albumin TSH Urine WBC (Auto) Salicylates 01/13/17 01/13/17 01/13/17 03:37 03:37 04:26 WBC RBC 3.61 L Hgb 9.3 L Hct 28.0 L MCV 78 L MCH 26 L RDW 18.2 H Plt Count Lymph % (Auto) [place] % (Auto) Eos % (Auto) Seg Neutrophils % Seg Neuts % (Manual) Lymphocytes % (Manual) Seg Neutrophils # Seg Neutrophils # Man Lymphocytes # (Manual) APTT POC ABG pH 7.485 H ABG pH POC ABG pCO2 25.4 L POC ABG pO2 73 L ABG pO2 ABG HCO3 ABG Base Excess ABG Hemoglobin VBG pH Oxyhemoglobin Sodium Potassium Chloride 112.4 H Carbon Dioxide 19 L BUN Creatinine Glucose 118 H POC Glucose Lactic Acid Calcium 8.0 L AST Alkaline Phosphatase CK-MB (CK-2) CK-MB (CK-2) Rel Index Albumin TSH Urine WBC (Auto) Salicylates 01/13/17 01/13/17 01/13/17 06:15 11:50 17:31 WBC RBC Hgb Hct MCV MCH RDW Plt Count Lymph % (Auto) [place] % (Auto) Eos % (Auto) Seg Neutrophils % Seg Neuts % (Manual) Lymphocytes % (Manual) Seg Neutrophils # Seg Neutrophils # Man Lymphocytes # (Manual) APTT POC ABG pH ABG pH POC ABG pCO2 POC ABG pO2 ABG pO2 ABG HCO3 ABG Base Excess ABG Hemoglobin VBG pH Oxyhemoglobin Sodium Potassium Chloride Carbon Dioxide BUN Creatinine Glucose POC Glucose 116 H 171 H 203 H Lactic Acid Calcium AST Alkaline Phosphatase CK-MB (CK-2) CK-MB (CK-2) Rel Index Albumin TSH Urine WBC (Auto) Salicylates 01/14/17 01/14/17 01/14/17 00:02 04:50 04:50 WBC RBC 3.32 L Hgb 8.5 L Hct 26.1 L MCV 79 L MCH 26 L RDW 18.2 H Plt Count Lymph % (Auto) [place] % (Auto) 9.0 H Eos % (Auto) Seg Neutrophils % Seg Neuts % (Manual) Lymphocytes % (Manual) Seg Neutrophils # Seg Neutrophils # Man Lymphocytes # (Manual) APTT POC ABG pH ABG pH POC ABG pCO2 POC ABG pO2 ABG pO2 ABG HCO3 ABG Base Excess ABG Hemoglobin VBG pH Oxyhemoglobin Sodium Potassium Chloride 112.5 H Carbon Dioxide BUN Creatinine Glucose 149 H POC Glucose 157 H Lactic Acid Calcium 8.1 L AST Alkaline Phosphatase CK-MB (CK-2) CK-MB (CK-2) Rel Index Albumin TSH Urine WBC (Auto) Salicylates 01/14/17 01/14/17 01/14/17 05:10 11:27 14:07 WBC RBC Hgb Hct MCV MCH RDW Plt Count Lymph % (Auto) [place] % (Auto) Eos % (Auto) Seg Neutrophils % Seg Neuts % (Manual) Lymphocytes % (Manual) Seg Neutrophils # Seg Neutrophils # Man Lymphocytes # (Manual) APTT POC ABG pH ABG pH POC ABG pCO2 POC ABG pO2 ABG pO2 ABG HCO3 ABG Base Excess ABG Hemoglobin VBG pH Oxyhemoglobin Sodium Potassium Chloride Carbon Dioxide BUN Creatinine Glucose POC Glucose 176 H 147 H Lactic Acid Calcium AST Alkaline Phosphatase CK-MB (CK-2) CK-MB (CK-2) Rel Index Albumin TSH Urine WBC (Auto) 53.0 H Salicylates 01/14/17 01/15/17 01/15/17 16:52 00:04 05:26 WBC RBC Hgb Hct MCV MCH RDW Plt Count Lymph % (Auto) [place] % (Auto) Eos % (Auto) Seg Neutrophils % Seg Neuts % (Manual) Lymphocytes % (Manual) Seg Neutrophils # Seg Neutrophils # Man Lymphocytes # (Manual) APTT POC ABG pH ABG pH POC ABG pCO2 POC ABG pO2 ABG pO2 ABG HCO3 ABG Base Excess ABG Hemoglobin VBG pH Oxyhemoglobin Sodium Potassium Chloride Carbon Dioxide BUN Creatinine Glucose POC Glucose 131 H 193 H 215 H Lactic Acid Calcium AST Alkaline Phosphatase CK-MB (CK-2) CK-MB (CK-2) Rel Index Albumin TSH Urine WBC (Auto) Salicylates 01/15/17 01/15/17 01/15/17 11:49 17:47 21:33 WBC RBC Hgb Hct MCV MCH RDW Plt Count Lymph % (Auto) [place] % (Auto) Eos % (Auto) Seg Neutrophils % Seg Neuts % (Manual) Lymphocytes % (Manual) Seg Neutrophils # Seg Neutrophils # Man Lymphocytes # (Manual) APTT POC ABG pH ABG pH POC ABG pCO2 POC ABG pO2 ABG pO2 ABG HCO3 ABG Base Excess ABG Hemoglobin VBG pH Oxyhemoglobin Sodium Potassium Chloride Carbon Dioxide BUN Creatinine Glucose POC Glucose 121 H 211 H 275 H Lactic Acid Calcium AST Alkaline Phosphatase CK-MB (CK-2) CK-MB (CK-2) Rel Index Albumin TSH Urine WBC (Auto) Salicylates 01/16/17 01/16/17 01/16/17 04:30 05:28 13:45 WBC RBC Hgb Hct MCV MCH RDW Plt Count Lymph % (Auto) [place] % (Auto) Eos % (Auto) Seg Neutrophils % Seg Neuts % (Manual) Lymphocytes % (Manual) Seg Neutrophils # Seg Neutrophils # Man Lymphocytes # (Manual) APTT POC ABG pH ABG pH 7.457 H POC ABG pCO2 POC ABG pO2 ABG pO2 55.1 L ABG HCO3 19.4 L ABG Base Excess -4.0 L ABG Hemoglobin 6.8 L VBG pH Oxyhemoglobin 94.9 L Sodium Potassium Chloride Carbon Dioxide BUN Creatinine Glucose POC Glucose 271 H 236 H Lactic Acid Calcium AST Alkaline Phosphatase CK-MB (CK-2) CK-MB (CK-2) Rel Index Albumin TSH Urine WBC (Auto) Salicylates 01/16/17 01/17/17 01/17/17 21:39 04:10 04:10 WBC 4.4 L RBC 2.98 L Hgb 7.7 L Hct 23.3 L MCV 78 L MCH 26 L RDW 18.1 H Plt Count Lymph % (Auto) [place] % (Auto) Eos % (Auto) Seg Neutrophils % Seg Neuts % (Manual) Lymphocytes % (Manual) Seg Neutrophils # Seg Neutrophils # Man Lymphocytes # (Manual) APTT POC ABG pH ABG pH POC ABG pCO2 POC ABG pO2 ABG pO2 ABG HCO3 ABG Base Excess ABG Hemoglobin VBG pH Oxyhemoglobin Sodium Potassium 3.3 L Chloride 108.7 H Carbon Dioxide 20 L BUN 8 L Creatinine Glucose 202 H POC Glucose 258 H Lactic Acid Calcium 7.6 L AST Alkaline Phosphatase CK-MB (CK-2) CK-MB (CK-2) Rel Index Albumin TSH Urine WBC (Auto) Salicylates 01/17/17 01/17/17 01/17/17 04:35 12:23 16:01 WBC RBC Hgb Hct MCV MCH RDW Plt Count Lymph % (Auto) [place] % (Auto) Eos % (Auto) Seg Neutrophils % Seg Neuts % (Manual) Lymphocytes % (Manual) Seg Neutrophils # Seg Neutrophils # Man Lymphocytes # (Manual) APTT POC ABG pH ABG pH POC ABG pCO2 POC ABG pO2 ABG pO2 160.3 H ABG HCO3 ABG Base Excess -2.3 L ABG Hemoglobin 7.9 L VBG pH Oxyhemoglobin Sodium Potassium Chloride Carbon Dioxide BUN Creatinine Glucose POC Glucose 321 H 239 H Lactic Acid Calcium AST Alkaline Phosphatase CK-MB (CK-2) CK-MB (CK-2) Rel Index Albumin TSH Urine WBC (Auto) Salicylates 01/18/17 01/18/17 01/18/17 05:07 12:09 17:54 WBC RBC Hgb Hct MCV MCH RDW Plt Count Lymph % (Auto) [place] % (Auto) Eos % (Auto) Seg Neutrophils % Seg Neuts % (Manual) Lymphocytes % (Manual) Seg Neutrophils # Seg Neutrophils # Man Lymphocytes # (Manual) APTT POC ABG pH ABG pH POC ABG pCO2 POC ABG pO2 ABG pO2 ABG HCO3 ABG Base Excess ABG Hemoglobin VBG pH Oxyhemoglobin Sodium Potassium Chloride Carbon Dioxide BUN Creatinine Glucose POC Glucose 155 H 203 H 132 H Lactic Acid Calcium AST Alkaline Phosphatase CK-MB (CK-2) CK-MB (CK-2) Rel Index Albumin TSH Urine WBC (Auto) Salicylates 01/18/17 01/19/17 01/19/17 23:43 04:28 12:11 WBC RBC Hgb Hct MCV MCH RDW Plt Count Lymph % (Auto) [place] % (Auto) Eos % (Auto) Seg Neutrophils % Seg Neuts % (Manual) Lymphocytes % (Manual) Seg Neutrophils # Seg Neutrophils # Man Lymphocytes # (Manual) APTT POC ABG pH ABG pH POC ABG pCO2 POC ABG pO2 ABG pO2 ABG HCO3 ABG Base Excess ABG Hemoglobin VBG pH Oxyhemoglobin Sodium Potassium Chloride Carbon Dioxide BUN Creatinine Glucose POC Glucose 125 H 182 H 153 H Lactic Acid Calcium AST Alkaline Phosphatase CK-MB (CK-2) CK-MB (CK-2) Rel Index Albumin TSH Urine WBC (Auto) Salicylates 01/19/17 01/20/17 01/20/17 17:23 00:12 05:44 WBC RBC Hgb Hct MCV MCH RDW Plt Count Lymph % (Auto) [place] % (Auto) Eos % (Auto) Seg Neutrophils % Seg Neuts % (Manual) Lymphocytes % (Manual) Seg Neutrophils # Seg Neutrophils # Man Lymphocytes # (Manual) APTT POC ABG pH ABG pH POC ABG pCO2 POC ABG pO2 ABG pO2 ABG HCO3 ABG Base Excess ABG Hemoglobin VBG pH Oxyhemoglobin Sodium Potassium Chloride Carbon Dioxide BUN Creatinine Glucose POC Glucose 66 L 139 H 176 H Lactic Acid Calcium AST Alkaline Phosphatase CK-MB (CK-2) CK-MB (CK-2) Rel Index Albumin TSH Urine WBC (Auto) Salicylates 01/20/17 01/20/17 01/20/17 11:48 17:42 23:43 WBC RBC Hgb Hct MCV MCH RDW Plt Count Lymph % (Auto) [place] % (Auto) Eos % (Auto) Seg Neutrophils % Seg Neuts % (Manual) Lymphocytes % (Manual) Seg Neutrophils # Seg Neutrophils # Man Lymphocytes # (Manual) APTT POC ABG pH ABG pH POC ABG pCO2 POC ABG pO2 ABG pO2 ABG HCO3 ABG Base Excess ABG Hemoglobin VBG pH Oxyhemoglobin Sodium Potassium Chloride Carbon Dioxide BUN Creatinine Glucose POC Glucose 218 H 132 H 178 H Lactic Acid Calcium AST Alkaline Phosphatase CK-MB (CK-2) CK-MB (CK-2) Rel Index Albumin TSH Urine WBC (Auto) Salicylates 01/21/17 01/21/17 01/21/17 05:34 11:17 23:37 WBC RBC Hgb Hct MCV MCH RDW Plt Count Lymph % (Auto) [place] % (Auto) Eos % (Auto) Seg Neutrophils % Seg Neuts % (Manual) Lymphocytes % (Manual) Seg Neutrophils # Seg Neutrophils # Man Lymphocytes # (Manual) APTT POC ABG pH ABG pH POC ABG pCO2 POC ABG pO2 ABG pO2 ABG HCO3 ABG Base Excess ABG Hemoglobin VBG pH Oxyhemoglobin Sodium Potassium Chloride Carbon Dioxide BUN Creatinine Glucose POC Glucose 106 H 213 H 140 H Lactic Acid Calcium AST Alkaline Phosphatase CK-MB (CK-2) CK-MB (CK-2) Rel Index Albumin TSH Urine WBC (Auto) Salicylates 01/22/17 01/22/17 01/22/17 04:00 04:00 04:58 WBC RBC 3.26 L Hgb 8.3 L Hct 25.5 L MCV 78 L MCH 25 L RDW 17.9 H Plt Count Lymph % (Auto) [place] % (Auto) 7.9 H Eos % (Auto) 6.2 H Seg Neutrophils % Seg Neuts % (Manual) Lymphocytes % (Manual) Seg Neutrophils # Seg Neutrophils # Man Lymphocytes # (Manual) APTT POC ABG pH ABG pH POC ABG pCO2 POC ABG pO2 ABG pO2 ABG HCO3 ABG Base Excess ABG Hemoglobin VBG pH Oxyhemoglobin Sodium Potassium Chloride 95.5 L Carbon Dioxide 31 H D BUN Creatinine Glucose 134 H POC Glucose 146 H Lactic Acid Calcium AST 44 H Alkaline Phosphatase 379 H CK-MB (CK-2) CK-MB (CK-2) Rel Index Albumin 2.7 L TSH Urine WBC (Auto) Salicylates 01/22/17 01/22/17 01/22/17 12:12 18:12 23:39 WBC RBC Hgb Hct MCV MCH RDW Plt Count Lymph % (Auto) [place] % (Auto) Eos % (Auto) Seg Neutrophils % Seg Neuts % (Manual) Lymphocytes % (Manual) Seg Neutrophils # Seg Neutrophils # Man Lymphocytes # (Manual) APTT POC ABG pH ABG pH POC ABG pCO2 POC ABG pO2 ABG pO2 ABG HCO3 ABG Base Excess ABG Hemoglobin VBG pH Oxyhemoglobin Sodium Potassium Chloride Carbon Dioxide BUN Creatinine Glucose POC Glucose 255 H 182 H 134 H Lactic Acid Calcium AST Alkaline Phosphatase CK-MB (CK-2) CK-MB (CK-2) Rel Index Albumin TSH Urine WBC (Auto) Salicylates 01/23/17 01/23/17 01/23/17 04:43 12:12 17:36 WBC RBC Hgb Hct MCV MCH RDW Plt Count Lymph % (Auto) [place] % (Auto) Eos % (Auto) Seg Neutrophils % Seg Neuts % (Manual) Lymphocytes % (Manual) Seg Neutrophils # Seg Neutrophils # Man Lymphocytes # (Manual) APTT POC ABG pH ABG pH POC ABG pCO2 POC ABG pO2 ABG pO2 ABG HCO3 ABG Base Excess ABG Hemoglobin VBG pH Oxyhemoglobin Sodium Potassium Chloride Carbon Dioxide BUN Creatinine Glucose POC Glucose 218 H 128 H 156 H Lactic Acid Calcium AST Alkaline Phosphatase CK-MB (CK-2) CK-MB (CK-2) Rel Index Albumin TSH Urine WBC (Auto) Salicylates 01/24/17 01/24/17 01/24/17 00:08 05:16 11:40 WBC RBC Hgb Hct MCV MCH RDW Plt Count Lymph % (Auto) [place] % (Auto) Eos % (Auto) Seg Neutrophils % Seg Neuts % (Manual) Lymphocytes % (Manual) Seg Neutrophils # Seg Neutrophils # Man Lymphocytes # (Manual) APTT POC ABG pH ABG pH POC ABG pCO2 POC ABG pO2 ABG pO2 ABG HCO3 ABG Base Excess ABG Hemoglobin VBG pH Oxyhemoglobin Sodium Potassium Chloride Carbon Dioxide BUN Creatinine Glucose POC Glucose 129 H 169 H 187 H Lactic Acid Calcium AST Alkaline Phosphatase CK-MB (CK-2) CK-MB (CK-2) Rel Index Albumin TSH Urine WBC (Auto) Salicylates 01/24/17 01/24/17 01/25/17 17:43 23:23 04:56 WBC RBC Hgb Hct MCV MCH RDW Plt Count Lymph % (Auto) [place] % (Auto) Eos % (Auto) Seg Neutrophils % Seg Neuts % (Manual) Lymphocytes % (Manual) Seg Neutrophils # Seg Neutrophils # Man Lymphocytes # (Manual) APTT POC ABG pH ABG pH POC ABG pCO2 POC ABG pO2 ABG pO2 ABG HCO3 ABG Base Excess ABG Hemoglobin VBG pH Oxyhemoglobin Sodium Potassium Chloride Carbon Dioxide BUN Creatinine Glucose POC Glucose 215 H 222 H 210 H Lactic Acid Calcium AST Alkaline Phosphatase CK-MB (CK-2) CK-MB (CK-2) Rel Index Albumin TSH Urine WBC (Auto) Salicylates 01/25/17 01/25/17 01/26/17 11:52 17:37 00:02 WBC RBC Hgb Hct MCV MCH RDW Plt Count Lymph % (Auto) [place] % (Auto) Eos % (Auto) Seg Neutrophils % Seg Neuts % (Manual) Lymphocytes % (Manual) Seg Neutrophils # Seg Neutrophils # Man Lymphocytes # (Manual) APTT POC ABG pH ABG pH POC ABG pCO2 POC ABG pO2 ABG pO2 ABG HCO3 ABG Base Excess ABG Hemoglobin VBG pH Oxyhemoglobin Sodium Potassium Chloride Carbon Dioxide BUN Creatinine Glucose POC Glucose 284 H 218 H 192 H Lactic Acid Calcium AST Alkaline Phosphatase CK-MB (CK-2) CK-MB (CK-2) Rel Index Albumin TSH Urine WBC (Auto) Salicylates 01/26/17 01/26/17 01/26/17 05:33 12:17 17:50 WBC RBC Hgb Hct MCV MCH RDW Plt Count Lymph % (Auto) [place] % (Auto) Eos % (Auto) Seg Neutrophils % Seg Neuts % (Manual) Lymphocytes % (Manual) Seg Neutrophils # Seg Neutrophils # Man Lymphocytes # (Manual) APTT POC ABG pH ABG pH POC ABG pCO2 POC ABG pO2 ABG pO2 ABG HCO3 ABG Base Excess ABG Hemoglobin VBG pH Oxyhemoglobin Sodium Potassium Chloride Carbon Dioxide BUN Creatinine Glucose POC Glucose 199 H 227 H 229 H Lactic Acid Calcium AST Alkaline Phosphatase CK-MB (CK-2) CK-MB (CK-2) Rel Index Albumin TSH Urine WBC (Auto) Salicylates 01/26/17 01/27/17 01/27/17 23:57 05:31 11:42 WBC RBC Hgb Hct MCV MCH RDW Plt Count Lymph % (Auto) [place] % (Auto) Eos % (Auto) Seg Neutrophils % Seg Neuts % (Manual) Lymphocytes % (Manual) Seg Neutrophils # Seg Neutrophils # Man Lymphocytes # (Manual) APTT POC ABG pH ABG pH POC ABG pCO2 POC ABG pO2 ABG pO2 ABG HCO3 ABG Base Excess ABG Hemoglobin VBG pH Oxyhemoglobin Sodium Potassium Chloride Carbon Dioxide BUN Creatinine Glucose POC Glucose 186 H 285 H 260 H Lactic Acid Calcium AST Alkaline Phosphatase CK-MB (CK-2) CK-MB (CK-2) Rel Index Albumin TSH Urine WBC (Auto) Salicylates 01/27/17 01/27/17 01/27/17 17:47 23:58 Unknown WBC 12.1 H RBC 3.28 L Hgb 8.5 L Hct 25.5 L MCV 78 L MCH 26 L RDW 16.8 H Plt Count 601 H Lymph % (Auto) [place] % (Auto) Eos % (Auto) Seg Neutrophils % Seg Neuts % (Manual) Lymphocytes % (Manual) Seg Neutrophils # Seg Neutrophils # Man Lymphocytes # (Manual) APTT POC ABG pH ABG pH POC ABG pCO2 POC ABG pO2 ABG pO2 ABG HCO3 ABG Base Excess ABG Hemoglobin VBG pH Oxyhemoglobin Sodium Potassium Chloride Carbon Dioxide BUN Creatinine Glucose POC Glucose 329 H 225 H Lactic Acid Calcium AST Alkaline Phosphatase CK-MB (CK-2) CK-MB (CK-2) Rel Index Albumin TSH Urine WBC (Auto) Salicylates 01/27/17 01/28/17 01/28/17 Unknown 03:44 03:44 WBC RBC 3.14 L Hgb 8.2 L Hct 24.1 L MCV 77 L MCH 26 L RDW 16.9 H Plt Count 567 H Lymph % (Auto) [place] % (Auto) Eos % (Auto) Seg Neutrophils % Seg Neuts % (Manual) Lymphocytes % (Manual) Seg Neutrophils # Seg Neutrophils # Man Lymphocytes # (Manual) APTT POC ABG pH ABG pH POC ABG pCO2 POC ABG pO2 ABG pO2 ABG HCO3 ABG Base Excess ABG Hemoglobin VBG pH Oxyhemoglobin Sodium 128 L Potassium 5.4 H Chloride 87.5 L Carbon Dioxide BUN 44 H 42 H Creatinine Glucose 250 H 128 H POC Glucose Lactic Acid Calcium AST Alkaline Phosphatase CK-MB (CK-2) CK-MB (CK-2) Rel Index Albumin TSH Urine WBC (Auto) Salicylates 01/28/17 01/28/17 01/28/17 11:43 16:47 17:52 WBC RBC Hgb Hct MCV MCH RDW Plt Count Lymph % (Auto) [place] % (Auto) Eos % (Auto) Seg Neutrophils % Seg Neuts % (Manual) Lymphocytes % (Manual) Seg Neutrophils # Seg Neutrophils # Man Lymphocytes # (Manual) APTT POC ABG pH ABG pH POC ABG pCO2 POC ABG pO2 ABG pO2 ABG HCO3 ABG Base Excess ABG Hemoglobin VBG pH Oxyhemoglobin Sodium Potassium Chloride Carbon Dioxide BUN Creatinine Glucose POC Glucose 351 H 249 H Lactic Acid Calcium AST Alkaline Phosphatase CK-MB (CK-2) CK-MB (CK-2) Rel Index Albumin TSH Urine WBC (Auto) > 182.0 H Salicylates 01/29/17 01/29/17 01/29/17 05:25 05:25 09:32 WBC 13.6 H RBC 3.25 L Hgb 8.3 L Hct 25.1 L MCV 77 L MCH 26 L RDW 16.8 H Plt Count 514 H Lymph % (Auto) [place] % (Auto) Eos % (Auto) Seg Neutrophils % Seg Neuts % (Manual) Lymphocytes % (Manual) Seg Neutrophils # Seg Neutrophils # Man Lymphocytes # (Manual) APTT POC ABG pH ABG pH POC ABG pCO2 POC ABG pO2 ABG pO2 ABG HCO3 ABG Base Excess ABG Hemoglobin VBG pH Oxyhemoglobin Sodium Potassium Chloride 97.8 L Carbon Dioxide BUN 34 H Creatinine Glucose 222 H POC Glucose Lactic Acid 2.50 H* Calcium AST Alkaline Phosphatase CK-MB (CK-2) CK-MB (CK-2) Rel Index Albumin TSH Urine WBC (Auto) Salicylates 01/29/17 01/29/17 01/29/17 11:56 18:11 23:55 WBC RBC Hgb Hct MCV MCH RDW Plt Count Lymph % (Auto) [place] % (Auto) Eos % (Auto) Seg Neutrophils % Seg Neuts % (Manual) Lymphocytes % (Manual) Seg Neutrophils # Seg Neutrophils # Man Lymphocytes # (Manual) APTT POC ABG pH ABG pH POC ABG pCO2 POC ABG pO2 ABG pO2 ABG HCO3 ABG Base Excess ABG Hemoglobin VBG pH Oxyhemoglobin Sodium Potassium Chloride Carbon Dioxide BUN Creatinine Glucose POC Glucose 261 H 215 H 176 H Lactic Acid Calcium AST Alkaline Phosphatase CK-MB (CK-2) CK-MB (CK-2) Rel Index Albumin TSH Urine WBC (Auto) Salicylates 01/30/17 01/30/17 01/30/17 05:31 05:31 05:34 WBC 15.2 H RBC 3.09 L Hgb 7.9 L Hct 23.9 L MCV 77 L MCH 26 L RDW 16.9 H Plt Count 569 H Lymph % (Auto) [place] % (Auto) Eos % (Auto) Seg Neutrophils % Seg Neuts % (Manual) Lymphocytes % (Manual) Seg Neutrophils # Seg Neutrophils # Man Lymphocytes # (Manual) APTT POC ABG pH ABG pH POC ABG pCO2 POC ABG pO2 ABG pO2 ABG HCO3 ABG Base Excess ABG Hemoglobin VBG pH Oxyhemoglobin Sodium Potassium Chloride Carbon Dioxide BUN 24 H Creatinine Glucose 235 H POC Glucose 243 H Lactic Acid Calcium AST Alkaline Phosphatase CK-MB (CK-2) CK-MB (CK-2) Rel Index Albumin TSH Urine WBC (Auto) Salicylates 01/30/17 01/30/17 01/30/17 11:38 17:58 23:29 WBC RBC Hgb Hct MCV MCH RDW Plt Count Lymph % (Auto) [place] % (Auto) Eos % (Auto) Seg Neutrophils % Seg Neuts % (Manual) Lymphocytes % (Manual) Seg Neutrophils # Seg Neutrophils # Man Lymphocytes # (Manual) APTT POC ABG pH ABG pH POC ABG pCO2 POC ABG pO2 ABG pO2 ABG HCO3 ABG Base Excess ABG Hemoglobin VBG pH Oxyhemoglobin Sodium Potassium Chloride Carbon Dioxide BUN Creatinine Glucose POC Glucose 298 H 208 H 245 H Lactic Acid Calcium AST Alkaline Phosphatase CK-MB (CK-2) CK-MB (CK-2) Rel Index Albumin TSH Urine WBC (Auto) Salicylates 01/31/17 01/31/17 01/31/17 04:39 04:39 05:57 WBC 11.4 H RBC 3.22 L Hgb 8.2 L Hct 24.9 L MCV 78 L MCH 25 L RDW 17.2 H Plt Count 576 H Lymph % (Auto) [place] % (Auto) Eos % (Auto) Seg Neutrophils % Seg Neuts % (Manual) Lymphocytes % (Manual) Seg Neutrophils # Seg Neutrophils # Man Lymphocytes # (Manual) APTT POC ABG pH ABG pH POC ABG pCO2 POC ABG pO2 ABG pO2 ABG HCO3 ABG Base Excess ABG Hemoglobin VBG pH Oxyhemoglobin Sodium Potassium Chloride Carbon Dioxide BUN Creatinine 0.7 L Glucose 223 H POC Glucose 264 H Lactic Acid Calcium AST Alkaline Phosphatase CK-MB (CK-2) CK-MB (CK-2) Rel Index Albumin TSH Urine WBC (Auto) Salicylates 01/31/17 01/31/17 01/31/17 12:23 17:41 18:55 WBC RBC Hgb Hct MCV MCH RDW Plt Count Lymph % (Auto) [place] % (Auto) Eos % (Auto) Seg Neutrophils % Seg Neuts % (Manual) Lymphocytes % (Manual) Seg Neutrophils # Seg Neutrophils # Man Lymphocytes # (Manual) APTT POC ABG pH ABG pH POC ABG pCO2 32.8 L POC ABG pO2 ABG pO2 ABG HCO3 ABG Base Excess ABG Hemoglobin VBG pH Oxyhemoglobin Sodium Potassium Chloride Carbon Dioxide BUN Creatinine Glucose POC Glucose 252 H 208 H Lactic Acid Calcium AST Alkaline Phosphatase CK-MB (CK-2) CK-MB (CK-2) Rel Index Albumin TSH Urine WBC (Auto) Salicylates 01/31/17 02/01/17 02/01/17 22:59 03:38 03:38 WBC RBC 2.81 L Hgb 7.4 L Hct 22.1 L MCV 79 L MCH 27 L RDW 17.0 H Plt Count 540 H Lymph % (Auto) [place] % (Auto) Eos % (Auto) Seg Neutrophils % Seg Neuts % (Manual) Lymphocytes % (Manual) Seg Neutrophils # Seg Neutrophils # Man Lymphocytes # (Manual) APTT POC ABG pH ABG pH POC ABG pCO2 POC ABG pO2 ABG pO2 ABG HCO3 ABG Base Excess ABG Hemoglobin VBG pH Oxyhemoglobin Sodium Potassium Chloride Carbon Dioxide 21 L BUN Creatinine 0.7 L Glucose POC Glucose 40 L Lactic Acid Calcium AST Alkaline Phosphatase CK-MB (CK-2) CK-MB (CK-2) Rel Index Albumin TSH Urine WBC (Auto) Salicylates 02/01/17 02/01/17 02/01/17 05:17 12:19 16:44 WBC RBC Hgb Hct MCV MCH RDW Plt Count Lymph % (Auto) [place] % (Auto) Eos % (Auto) Seg Neutrophils % Seg Neuts % (Manual) Lymphocytes % (Manual) Seg Neutrophils # Seg Neutrophils # Man Lymphocytes # (Manual) APTT POC ABG pH ABG pH POC ABG pCO2 POC ABG pO2 ABG pO2 ABG HCO3 ABG Base Excess ABG Hemoglobin VBG pH Oxyhemoglobin Sodium Potassium Chloride Carbon Dioxide BUN Creatinine Glucose POC Glucose 140 H 213 H 172 H Lactic Acid Calcium AST Alkaline Phosphatase CK-MB (CK-2) CK-MB (CK-2) Rel Index Albumin TSH Urine WBC (Auto) Salicylates 02/01/17 02/02/17 02/02/17 23:59 05:14 11:24 WBC RBC Hgb Hct MCV MCH RDW Plt Count Lymph % (Auto) [place] % (Auto) Eos % (Auto) Seg Neutrophils % Seg Neuts % (Manual) Lymphocytes % (Manual) Seg Neutrophils # Seg Neutrophils # Man Lymphocytes # (Manual) APTT POC ABG pH ABG pH POC ABG pCO2 POC ABG pO2 ABG pO2 ABG HCO3 ABG Base Excess ABG Hemoglobin VBG pH Oxyhemoglobin Sodium Potassium Chloride Carbon Dioxide BUN Creatinine Glucose POC Glucose 181 H 194 H 209 H Lactic Acid Calcium AST Alkaline Phosphatase CK-MB (CK-2) CK-MB (CK-2) Rel Index Albumin TSH Urine WBC (Auto) Salicylates 02/02/17 02/02/17 02/02/17 11:46 11:46 17:47 WBC RBC 2.94 L Hgb 7.5 L Hct 23.0 L MCV 78 L MCH 25 L RDW 16.9 H Plt Count 520 H Lymph % (Auto) [place] % (Auto) Eos % (Auto) Seg Neutrophils % Seg Neuts % (Manual) Lymphocytes % (Manual) Seg Neutrophils # Seg Neutrophils # Man Lymphocytes # (Manual) APTT POC ABG pH ABG pH POC ABG pCO2 POC ABG pO2 ABG pO2 ABG HCO3 ABG Base Excess ABG Hemoglobin VBG pH Oxyhemoglobin Sodium Potassium Chloride Carbon Dioxide BUN Creatinine 0.6 L Glucose 189 H POC Glucose 147 H Lactic Acid Calcium 8.1 L AST Alkaline Phosphatase CK-MB (CK-2) CK-MB (CK-2) Rel Index Albumin TSH Urine WBC (Auto) Salicylates 02/02/17 02/03/17 02/03/17 23:32 05:53 11:19 WBC RBC Hgb Hct MCV MCH RDW Plt Count Lymph % (Auto) [place] % (Auto) Eos % (Auto) Seg Neutrophils % Seg Neuts % (Manual) Lymphocytes % (Manual) Seg Neutrophils # Seg Neutrophils # Man Lymphocytes # (Manual) APTT POC ABG pH ABG pH POC ABG pCO2 POC ABG pO2 ABG pO2 ABG HCO3 ABG Base Excess ABG Hemoglobin VBG pH Oxyhemoglobin Sodium Potassium Chloride Carbon Dioxide BUN Creatinine Glucose POC Glucose 176 H 224 H 228 H Lactic Acid Calcium AST Alkaline Phosphatase CK-MB (CK-2) CK-MB (CK-2) Rel Index Albumin TSH Urine WBC (Auto) Salicylates 02/03/17 02/03/17 02/04/17 16:59 23:38 05:45 WBC RBC Hgb Hct MCV MCH RDW Plt Count Lymph % (Auto) [place] % (Auto) Eos % (Auto) Seg Neutrophils % Seg Neuts % (Manual) Lymphocytes % (Manual) Seg Neutrophils # Seg Neutrophils # Man Lymphocytes # (Manual) APTT POC ABG pH ABG pH POC ABG pCO2 POC ABG pO2 ABG pO2 ABG HCO3 ABG Base Excess ABG Hemoglobin VBG pH Oxyhemoglobin Sodium Potassium Chloride Carbon Dioxide BUN Creatinine Glucose POC Glucose 189 H 191 H 251 H Lactic Acid Calcium AST Alkaline Phosphatase CK-MB (CK-2) CK-MB (CK-2) Rel Index Albumin TSH Urine WBC (Auto) Salicylates 02/04/17 02/04/17 02/05/17 11:20 17:20 00:17 WBC RBC Hgb Hct MCV MCH RDW Plt Count Lymph % (Auto) [place] % (Auto) Eos % (Auto) Seg Neutrophils % Seg Neuts % (Manual) Lymphocytes % (Manual) Seg Neutrophils # Seg Neutrophils # Man Lymphocytes # (Manual) APTT POC ABG pH ABG pH POC ABG pCO2 POC ABG pO2 ABG pO2 ABG HCO3 ABG Base Excess ABG Hemoglobin VBG pH Oxyhemoglobin Sodium Potassium Chloride Carbon Dioxide BUN Creatinine Glucose POC Glucose 243 H 163 H 200 H Lactic Acid Calcium AST Alkaline Phosphatase CK-MB (CK-2) CK-MB (CK-2) Rel Index Albumin TSH Urine WBC (Auto) Salicylates 02/05/17 02/05/17 02/05/17 05:38 12:38 16:29 WBC RBC Hgb Hct MCV MCH RDW Plt Count Lymph % (Auto) [place] % (Auto) Eos % (Auto) Seg Neutrophils % Seg Neuts % (Manual) Lymphocytes % (Manual) Seg Neutrophils # Seg Neutrophils # Man Lymphocytes # (Manual) APTT POC ABG pH ABG pH POC ABG pCO2 POC ABG pO2 ABG pO2 ABG HCO3 ABG Base Excess ABG Hemoglobin VBG pH Oxyhemoglobin Sodium Potassium Chloride Carbon Dioxide BUN Creatinine Glucose POC Glucose 248 H 241 H 257 H Lactic Acid Calcium AST Alkaline Phosphatase CK-MB (CK-2) CK-MB (CK-2) Rel Index Albumin TSH Urine WBC (Auto) Salicylates 02/05/17 02/06/17 02/06/17 23:56 05:30 11:50 WBC RBC Hgb Hct MCV MCH RDW Plt Count Lymph % (Auto) [place] % (Auto) Eos % (Auto) Seg Neutrophils % Seg Neuts % (Manual) Lymphocytes % (Manual) Seg Neutrophils # Seg Neutrophils # Man Lymphocytes # (Manual) APTT POC ABG pH ABG pH POC ABG pCO2 POC ABG pO2 ABG pO2 ABG HCO3 ABG Base Excess ABG Hemoglobin VBG pH Oxyhemoglobin Sodium Potassium Chloride Carbon Dioxide BUN Creatinine Glucose POC Glucose 258 H 120 H 254 H Lactic Acid Calcium AST Alkaline Phosphatase CK-MB (CK-2) CK-MB (CK-2) Rel Index Albumin TSH Urine WBC (Auto) Salicylates 02/06/17 02/06/17 02/07/17 17:11 23:50 05:22 WBC RBC Hgb Hct MCV MCH RDW Plt Count Lymph % (Auto) [place] % (Auto) Eos % (Auto) Seg Neutrophils % Seg Neuts % (Manual) Lymphocytes % (Manual) Seg Neutrophils # Seg Neutrophils # Man Lymphocytes # (Manual) APTT POC ABG pH ABG pH POC ABG pCO2 POC ABG pO2 ABG pO2 ABG HCO3 ABG Base Excess ABG Hemoglobin VBG pH Oxyhemoglobin Sodium Potassium Chloride Carbon Dioxide BUN Creatinine Glucose POC Glucose 149 H 240 H 258 H Lactic Acid Calcium AST Alkaline Phosphatase CK-MB (CK-2) CK-MB (CK-2) Rel Index Albumin TSH Urine WBC (Auto) Salicylates 02/07/17 02/07/1702/07/17 11:15 18:33 23:59 WBC RBC Hgb Hct MCV MCH RDW Plt Count Lymph % (Auto) [place] % (Auto) Eos % (Auto) Seg Neutrophils % Seg Neuts % (Manual) Lymphocytes % (Manual) Seg Neutrophils # Seg Neutrophils # Man Lymphocytes # (Manual) APTT POC ABG pH ABG pH POC ABG pCO2 POC ABG pO2 ABG pO2 ABG HCO3 ABG Base Excess ABG Hemoglobin VBG pH Oxyhemoglobin Sodium Potassium Chloride Carbon Dioxide BUN Creatinine Glucose POC Glucose 239 H 176 H 186 H Lactic Acid Calcium AST Alkaline Phosphatase CK-MB (CK-2) CK-MB (CK-2) Rel Index Albumin TSH Urine WBC (Auto) Salicylates 02/08/17 02/08/17 02/08/17 06:15 11:55 16:55 WBC RBC Hgb Hct MCV MCH RDW Plt Count Lymph % (Auto) [place] % (Auto) Eos % (Auto) Seg Neutrophils % Seg Neuts % (Manual) Lymphocytes % (Manual) Seg Neutrophils # Seg Neutrophils # Man Lymphocytes # (Manual) APTT POC ABG pH ABG pH POC ABG pCO2 POC ABG pO2 ABG pO2 ABG HCO3 ABG Base Excess ABG Hemoglobin VBG pH Oxyhemoglobin Sodium Potassium Chloride Carbon Dioxide BUN Creatinine Glucose POC Glucose 195 H 129 H 246 H Lactic Acid Calcium AST Alkaline Phosphatase CK-MB (CK-2) CK-MB (CK-2) Rel Index Albumin TSH Urine WBC (Auto) Salicylates 02/08/17 02/09/17 02/09/17 23:51 05:51 07:24 WBC 14.7 H RBC 3.39 L Hgb 8.9 L Hct 26.4 L MCV 78 L MCH 26 L RDW 18.4 H Plt Count 670 H Lymph % (Auto) 11.8 L [place] % (Auto) Eos % (Auto) Seg Neutrophils % 81.2 H Seg Neuts % (Manual) Lymphocytes % (Manual) Seg Neutrophils # 11.9 H Seg Neutrophils # Man Lymphocytes # (Manual) APTT POC ABG pH ABG pH POC ABG pCO2 POC ABG pO2 ABG pO2 ABG HCO3 ABG Base Excess ABG Hemoglobin VBG pH Oxyhemoglobin Sodium Potassium Chloride Carbon Dioxide BUN Creatinine Glucose POC Glucose 262 H 295 H Lactic Acid Calcium AST Alkaline Phosphatase CK-MB (CK-2) CK-MB (CK-2) Rel Index Albumin TSH Urine WBC (Auto) Salicylates 02/09/17 02/09/17 02/09/17 07:24 12:08 18:39 WBC RBC Hgb Hct MCV MCH RDW Plt Count Lymph % (Auto) [place] % (Auto) Eos % (Auto) Seg Neutrophils % Seg Neuts % (Manual) Lymphocytes % (Manual) Seg Neutrophils # Seg Neutrophils # Man Lymphocytes # (Manual) APTT POC ABG pH ABG pH POC ABG pCO2 POC ABG pO2 ABG pO2 ABG HCO3 ABG Base Excess ABG Hemoglobin VBG pH Oxyhemoglobin Sodium Potassium Chloride 95.5 L Carbon Dioxide BUN 52 H Creatinine Glucose 277 H POC Glucose 236 H 151 H Lactic Acid Calcium AST Alkaline Phosphatase CK-MB (CK-2) CK-MB (CK-2) Rel Index Albumin TSH Urine WBC (Auto) Salicylates 02/10/17 02/10/17 02/10/17 00:01 05:44 11:21 WBC RBC Hgb Hct MCV MCH RDW Plt Count Lymph % (Auto) [place] % (Auto) Eos % (Auto) Seg Neutrophils % Seg Neuts % (Manual) Lymphocytes % (Manual) Seg Neutrophils # Seg Neutrophils # Man Lymphocytes # (Manual) APTT POC ABG pH ABG pH POC ABG pCO2 POC ABG pO2 ABG pO2 ABG HCO3 ABG Base Excess ABG Hemoglobin VBG pH Oxyhemoglobin Sodium Potassium Chloride Carbon Dioxide BUN Creatinine Glucose POC Glucose 210 H 201 H 233 H Lactic Acid Calcium AST Alkaline Phosphatase CK-MB (CK-2) CK-MB (CK-2) Rel Index Albumin TSH Urine WBC (Auto) Salicylates 02/10/17 02/10/17 02/11/17 17:29 23:56 05:24 WBC RBC Hgb Hct MCV MCH RDW Plt Count Lymph % (Auto) [place] % (Auto) Eos % (Auto) Seg Neutrophils % Seg Neuts % (Manual) Lymphocytes % (Manual) Seg Neutrophils # Seg Neutrophils # Man Lymphocytes # (Manual) APTT POC ABG pH ABG pH POC ABG pCO2 POC ABG pO2 ABG pO2 ABG HCO3 ABG Base Excess ABG Hemoglobin VBG pH Oxyhemoglobin Sodium Potassium Chloride Carbon Dioxide BUN Creatinine Glucose POC Glucose 167 H 191 H 135 H Lactic Acid Calcium AST Alkaline Phosphatase CK-MB (CK-2) CK-MB (CK-2) Rel Index Albumin TSH Urine WBC (Auto) Salicylates 02/11/17 02/11/17 02/11/17 12:25 17:03 23:59 WBC RBC Hgb Hct MCV MCH RDW Plt Count Lymph % (Auto) [place] % (Auto) Eos % (Auto) Seg Neutrophils % Seg Neuts % (Manual) Lymphocytes % (Manual) Seg Neutrophils # Seg Neutrophils # Man Lymphocytes # (Manual) APTT POC ABG pH ABG pH POC ABG pCO2 POC ABG pO2 ABG pO2 ABG HCO3 ABG Base Excess ABG Hemoglobin VBG pH Oxyhemoglobin Sodium Potassium Chloride Carbon Dioxide BUN Creatinine Glucose POC Glucose 275 H 172 H 215 H Lactic Acid Calcium AST Alkaline Phosphatase CK-MB (CK-2) CK-MB (CK-2) Rel Index Albumin TSH Urine WBC (Auto) Salicylates 02/12/17 02/12/17 02/12/17 05:39 11:33 17:55 WBC RBC Hgb Hct MCV MCH RDW Plt Count Lymph % (Auto) [place] % (Auto) Eos % (Auto) Seg Neutrophils % Seg Neuts % (Manual) Lymphocytes % (Manual) Seg Neutrophils # Seg Neutrophils # Man Lymphocytes # (Manual) APTT POC ABG pH ABG pH POC ABG pCO2 POC ABG pO2 ABG pO2 ABG HCO3 ABG Base Excess ABG Hemoglobin VBG pH Oxyhemoglobin Sodium Potassium Chloride Carbon Dioxide BUN Creatinine Glucose POC Glucose 261 H 217 H 172 H Lactic Acid Calcium AST Alkaline Phosphatase CK-MB (CK-2) CK-MB (CK-2) Rel Index Albumin TSH Urine WBC (Auto) Salicylates 02/13/17 02/13/17 02/13/17 00:25 06:46 11:26 WBC RBC Hgb Hct MCV MCH RDW Plt Count Lymph % (Auto) [place] % (Auto) Eos % (Auto) Seg Neutrophils % Seg Neuts % (Manual) Lymphocytes % (Manual) Seg Neutrophils # Seg Neutrophils # Man Lymphocytes # (Manual) APTT POC ABG pH ABG pH POC ABG pCO2 POC ABG pO2 ABG pO2 ABG HCO3 ABG Base Excess ABG Hemoglobin VBG pH Oxyhemoglobin Sodium Potassium Chloride Carbon Dioxide BUN Creatinine Glucose POC Glucose 207 H 219 H 231 H Lactic Acid Calcium AST Alkaline Phosphatase CK-MB (CK-2) CK-MB (CK-2) Rel Index Albumin TSH Urine WBC (Auto) Salicylates 02/13/17 02/13/17 02/14/17 17:12 23:44 05:44 WBC RBC Hgb Hct MCV MCH RDW Plt Count Lymph % (Auto) [place] % (Auto) Eos % (Auto) Seg Neutrophils % Seg Neuts % (Manual) Lymphocytes % (Manual) Seg Neutrophils # Seg Neutrophils # Man Lymphocytes # (Manual) APTT POC ABG pH ABG pH POC ABG pCO2 POC ABG pO2 ABG pO2 ABG HCO3 ABG Base Excess ABG Hemoglobin VBG pH Oxyhemoglobin Sodium Potassium Chloride Carbon Dioxide BUN Creatinine Glucose POC Glucose 190 H 256 H 184 H Lactic Acid Calcium AST Alkaline Phosphatase CK-MB (CK-2) CK-MB (CK-2) Rel Index Albumin TSH Urine WBC (Auto) Salicylates 02/14/17 02/14/17 02/14/17 12:21 17:57 23:18 WBC RBC Hgb Hct MCV MCH RDW Plt Count Lymph % (Auto) [place] % (Auto) Eos % (Auto) Seg Neutrophils % Seg Neuts % (Manual) Lymphocytes % (Manual) Seg Neutrophils # Seg Neutrophils # Man Lymphocytes # (Manual) APTT POC ABG pH ABG pH POC ABG pCO2 POC ABG pO2 ABG pO2 ABG HCO3 ABG Base Excess ABG Hemoglobin VBG pH Oxyhemoglobin Sodium Potassium Chloride Carbon Dioxide BUN Creatinine Glucose POC Glucose 233 H 155 H 165 H Lactic Acid Calcium AST Alkaline Phosphatase CK-MB (CK-2) CK-MB (CK-2) Rel Index Albumin TSH Urine WBC (Auto) Salicylates 02/15/17 02/15/17 02/15/17 05:33 11:45 17:20 WBC RBC Hgb Hct MCV MCH RDW Plt Count Lymph % (Auto) [place] % (Auto) Eos % (Auto) Seg Neutrophils % Seg Neuts % (Manual) Lymphocytes % (Manual) Seg Neutrophils # Seg Neutrophils # Man Lymphocytes # (Manual) APTT POC ABG pH ABG pH POC ABG pCO2 POC ABG pO2 ABG pO2 ABG HCO3 ABG Base Excess ABG Hemoglobin VBG pH Oxyhemoglobin Sodium Potassium Chloride Carbon Dioxide BUN Creatinine Glucose POC Glucose 239 H 130 H 189 H Lactic Acid Calcium AST Alkaline Phosphatase CK-MB (CK-2) CK-MB (CK-2) Rel Index Albumin TSH Urine WBC (Auto) Salicylates 02/16/17 02/16/17 02/16/17 00:14 05:09 12:31 WBC RBC Hgb Hct MCV MCH RDW Plt Count Lymph % (Auto) [place] % (Auto) Eos % (Auto) Seg Neutrophils % Seg Neuts % (Manual) Lymphocytes % (Manual) Seg Neutrophils # Seg Neutrophils # Man Lymphocytes # (Manual) APTT POC ABG pH ABG pH POC ABG pCO2 POC ABG pO2 ABG pO2 ABG HCO3 ABG Base Excess ABG Hemoglobin VBG pH Oxyhemoglobin Sodium Potassium Chloride Carbon Dioxide BUN Creatinine Glucose POC Glucose 197 H 226 H 178 H Lactic Acid Calcium AST Alkaline Phosphatase CK-MB (CK-2) CK-MB (CK-2) Rel Index Albumin TSH Urine WBC (Auto) Salicylates 02/16/17 02/16/17 02/17/17 16:35 23:49 05:37 WBC RBC Hgb Hct MCV MCH RDW Plt Count Lymph % (Auto) [place] % (Auto) Eos % (Auto) Seg Neutrophils % Seg Neuts % (Manual) Lymphocytes % (Manual) Seg Neutrophils # Seg Neutrophils # Man Lymphocytes # (Manual) APTT POC ABG pH ABG pH POC ABG pCO2 POC ABG pO2 ABG pO2 ABG HCO3 ABG Base Excess ABG Hemoglobin VBG pH Oxyhemoglobin Sodium Potassium Chloride Carbon Dioxide BUN Creatinine Glucose POC Glucose 174 H 62 L 153 H Lactic Acid Calcium AST Alkaline Phosphatase CK-MB (CK-2) CK-MB (CK-2) Rel Index Albumin TSH Urine WBC (Auto) Salicylates 02/17/17 02/17/17 02/17/17 11:39 17:02 22:24 WBC RBC Hgb Hct MCV MCH RDW Plt Count Lymph % (Auto) [place] % (Auto) Eos % (Auto) Seg Neutrophils % Seg Neuts % (Manual) Lymphocytes % (Manual) Seg Neutrophils # Seg Neutrophils # Man Lymphocytes # (Manual) APTT POC ABG pH ABG pH POC ABG pCO2 POC ABG pO2 ABG pO2 ABG HCO3 ABG Base Excess ABG Hemoglobin VBG pH Oxyhemoglobin Sodium Potassium Chloride Carbon Dioxide BUN Creatinine Glucose POC Glucose 231 H 112 H 116 H Lactic Acid Calcium AST Alkaline Phosphatase CK-MB (CK-2) CK-MB (CK-2) Rel Index Albumin TSH Urine WBC (Auto) Salicylates 02/18/17 02/19/17 02/19/17 15:34 05:09 07:57 WBC RBC Hgb Hct MCV MCH RDW Plt Count Lymph % (Auto) [place] % (Auto) Eos % (Auto) Seg Neutrophils % Seg Neuts % (Manual) Lymphocytes % (Manual) Seg Neutrophils # Seg Neutrophils # Man Lymphocytes # (Manual) APTT POC ABG pH ABG pH POC ABG pCO2 POC ABG pO2 ABG pO2 ABG HCO3 ABG Base Excess ABG Hemoglobin VBG pH Oxyhemoglobin Sodium Potassium Chloride Carbon Dioxide BUN Creatinine Glucose POC Glucose 215 H 218 H 283 H Lactic Acid Calcium AST Alkaline Phosphatase CK-MB (CK-2) CK-MB (CK-2) Rel Index Albumin TSH Urine WBC (Auto) Salicylates 02/19/17 02/19/17 02/20/17 14:49 22:10 05:10 WBC RBC Hgb Hct MCV MCH RDW Plt Count Lymph % (Auto) [place] % (Auto) Eos % (Auto) Seg Neutrophils % Seg Neuts % (Manual) Lymphocytes % (Manual) Seg Neutrophils # Seg Neutrophils # Man Lymphocytes # (Manual) APTT POC ABG pH ABG pH POC ABG pCO2 POC ABG pO2 ABG pO2 ABG HCO3 ABG Base Excess ABG Hemoglobin VBG pH Oxyhemoglobin Sodium Potassium Chloride Carbon Dioxide BUN Creatinine Glucose POC Glucose 290 H 169 H 209 H Lactic Acid Calcium AST Alkaline Phosphatase CK-MB (CK-2) CK-MB (CK-2) Rel Index Albumin TSH Urine WBC (Auto) Salicylates 02/20/17 02/20/17 02/21/17 15:05 21:52 02:00 WBC RBC Hgb Hct MCV MCH RDW Plt Count Lymph % (Auto) [place] % (Auto) Eos % (Auto) Seg Neutrophils % Seg Neuts % (Manual) Lymphocytes % (Manual) Seg Neutrophils # Seg Neutrophils # Man Lymphocytes # (Manual) APTT POC ABG pH ABG pH POC ABG pCO2 POC ABG pO2 ABG pO2 ABG HCO3 ABG Base Excess ABG Hemoglobin VBG pH Oxyhemoglobin Sodium Potassium Chloride Carbon Dioxide BUN Creatinine Glucose POC Glucose 172 H 209 H 216 H Lactic Acid Calcium AST Alkaline Phosphatase CK-MB (CK-2) CK-MB (CK-2) Rel Index Albumin TSH Urine WBC (Auto) Salicylates 02/21/17 02/21/17 02/21/17 04:54 14:43 17:47 WBC RBC Hgb Hct MCV MCH RDW Plt Count Lymph % (Auto) [place] % (Auto) Eos % (Auto) Seg Neutrophils % Seg Neuts % (Manual) Lymphocytes % (Manual) Seg Neutrophils # Seg Neutrophils # Man Lymphocytes # (Manual) APTT POC ABG pH ABG pH POC ABG pCO2 POC ABG pO2 ABG pO2 ABG HCO3 ABG Base Excess ABG Hemoglobin VBG pH Oxyhemoglobin Sodium Potassium Chloride Carbon Dioxide BUN Creatinine Glucose POC Glucose 227 H 290 H 220 H Lactic Acid Calcium AST Alkaline Phosphatase CK-MB (CK-2) CK-MB (CK-2) Rel Index Albumin TSH Urine WBC (Auto) Salicylates 02/21/17 02/22/17 02/22/17 22:02 04:52 15:25 WBC RBC Hgb Hct MCV MCH RDW Plt Count Lymph % (Auto) [place] % (Auto) Eos % (Auto) Seg Neutrophils % Seg Neuts % (Manual) Lymphocytes % (Manual) Seg Neutrophils # Seg Neutrophils # Man Lymphocytes # (Manual) APTT POC ABG pH ABG pH POC ABG pCO2 POC ABG pO2 ABG pO2 ABG HCO3 ABG Base Excess ABG Hemoglobin VBG pH Oxyhemoglobin Sodium Potassium Chloride Carbon Dioxide BUN Creatinine Glucose POC Glucose 246 H 212 H 236 H Lactic Acid Calcium AST Alkaline Phosphatase CK-MB (CK-2) CK-MB (CK-2) Rel Index Albumin TSH Urine WBC (Auto) Salicylates 02/22/17 02/23/17 02/23/17 21:33 06:04 10:00 WBC RBC Hgb Hct MCV MCH RDW Plt Count Lymph % (Auto) [place] % (Auto) Eos % (Auto) Seg Neutrophils % Seg Neuts % (Manual) Lymphocytes % (Manual) Seg Neutrophils # Seg Neutrophils # Man Lymphocytes # (Manual) APTT POC ABG pH ABG pH POC ABG pCO2 POC ABG pO2 ABG pO2 ABG HCO3 ABG Base Excess ABG Hemoglobin VBG pH Oxyhemoglobin Sodium Potassium Chloride Carbon Dioxide BUN Creatinine Glucose POC Glucose 255 H 208 H 174 H Lactic Acid Calcium AST Alkaline Phosphatase CK-MB (CK-2) CK-MB (CK-2) Rel Index Albumin TSH Urine WBC (Auto) Salicylates 02/23/17 02/23/17 02/23/17 12:52 17:15 21:51 WBC RBC Hgb Hct MCV MCH RDW Plt Count Lymph % (Auto) [place] % (Auto) Eos % (Auto) Seg Neutrophils % Seg Neuts % (Manual) Lymphocytes % (Manual) Seg Neutrophils # Seg Neutrophils # Man Lymphocytes # (Manual) APTT POC ABG pH ABG pH POC ABG pCO2 POC ABG pO2 ABG pO2 ABG HCO3 ABG Base Excess ABG Hemoglobin VBG pH Oxyhemoglobin Sodium Potassium Chloride Carbon Dioxide BUN Creatinine Glucose POC Glucose 203 H 269 H 205 H Lactic Acid Calcium AST Alkaline Phosphatase CK-MB (CK-2) CK-MB (CK-2) Rel Index Albumin TSH Urine WBC (Auto) Salicylates 02/24/17 02/24/17 02/24/17 10:23 17:45 21:24 WBC RBC Hgb Hct MCV MCH RDW Plt Count Lymph % (Auto) [place] % (Auto) Eos % (Auto) Seg Neutrophils % Seg Neuts % (Manual) Lymphocytes % (Manual) Seg Neutrophils # Seg Neutrophils # Man Lymphocytes # (Manual) APTT POC ABG pH ABG pH POC ABG pCO2 POC ABG pO2 ABG pO2 ABG HCO3 ABG Base Excess ABG Hemoglobin VBG pH Oxyhemoglobin Sodium Potassium Chloride Carbon Dioxide BUN Creatinine Glucose POC Glucose 280 H 239 H 254 H Lactic Acid Calcium AST Alkaline Phosphatase CK-MB (CK-2) CK-MB (CK-2) Rel Index Albumin TSH Urine WBC (Auto) Salicylates 02/25/17 02/25/17 02:12 05:17 WBC RBC Hgb Hct MCV MCH RDW Plt Count Lymph % (Auto) [place] % (Auto) Eos % (Auto) Seg Neutrophils % Seg Neuts % (Manual) Lymphocytes % (Manual) Seg Neutrophils # Seg Neutrophils # Man Lymphocytes # (Manual) APTT POC ABG pH ABG pH POC ABG pCO2 POC ABG pO2 ABG pO2 ABG HCO3 ABG Base Excess ABG Hemoglobin VBG pH Oxyhemoglobin Sodium Potassium Chloride Carbon Dioxide BUN Creatinine Glucose POC Glucose 296 H 332 H Lactic Acid Calcium AST Alkaline Phosphatase CK-MB (CK-2) CK-MB (CK-2) Rel Index Albumin TSH Urine WBC (Auto) Salicylates
[2017-02-26] MEDS: NOVOLOG SUB-Q SCH ×4 (05:58→22:50)
[2017-02-26] MEDS: PEPCID PO SCH ×3 (05:59→21:35)
[2017-02-26] MEDS: SYNTHROID PO SCH (06:07)
--- NOTE | 2017-02-26 09:14 | Progress Note ---
Assessment and Plan Acute respiratory failure, vent/ETT dependent. Fever. None today Hypoglycemia episode-mild hyperglicemic,improving Metabolic encephalopathy. Prolonged vegetative state ,evolving? Hypothyroidism; doubt myxedema coma UTI/SIRS. Resolved Recommendations Currently the patient is DO NOT RESUSCITATE. Waiting for final decision from court order regarding current support versus termination of care Continue PSV/CPAP trials,better tolerated now. If no decision legally, consider again trach to fully wean of vent support. complex patient. Critical care time with a 31 minutes of [id number] evaluation and coordination of care Subjective Date of service: 02/26/17 Principal diagnosis: Acute respiratory failure,encephalopathy Interval history: Intubated. awake but non responsive. On A/C mode Objective Vital Signs - 12hr 02/25/17 02/25/17 02/25/17 22:00 22:15 23:42 Temperature 97.4 F L Pulse Rate 66 65 Respiratory 16 Rate Blood Pressure 140/83 140/83 O2 Sat by Pulse 100 100 Oximetry 02/26/17 02/26/17 02/26/17 00:00 00:30 01:00 Temperature 97.3 F L Pulse Rate 63 Respiratory 13 17 Rate Blood Pressure 142/85 O2 Sat by Pulse 100 99 Oximetry 02/26/17 02/26/17 02/26/17 02:00 04:00 05:19 Temperature Pulse Rate 62 63 65 Respiratory 12 13 Rate Blood Pressure 140/84 147/84 138/89 O2 Sat by Pulse 100 100 99 Oximetry 02/26/17 02/26/17 02/26/17 05:56 06:00 07:49 Temperature 98.3 F 98.3 F Pulse Rate 65 Respiratory 16 Rate Blood Pressure 132/86 O2 Sat by Pulse 100 Oximetry 02/26/17 07:57 Temperature Pulse Rate 69 Respiratory Rate Blood Pressure 132/86 O2 Sat by Pulse 99 Oximetry Constitutional: no acute distress, alert, other (orally intubated, on vent support) Eyes: non-icteric ENT: oropharynx moist Neck: supple, no JVD Effort: normal Ascultation: Bilateral: clear, diminished breath sounds Cardiovascular: regular rate and rhythm Gastrointestinal: normoactive bowel sounds, soft, non-tender, non-distended Integumentary: normal Extremities: no cyanosis, no edema, pink and warm Neurologic: other (awake spontaneously, not not following any commands. Fixed stare.) Psychiatric: other (unable to obtain) CBC and BMP: 02/09/17 07:24 02/09/17 07:24 ABG, PT/INR, D-dimer: ABG POC ABG pH 7.442 (7.35-7.45) 01/31/17 18:55 ABG pH 7.420 pH Units (7.350-7.450) 01/17/17 04:35 POC ABG pCO2 32.8 (35-45) L 01/31/17 18:55 ABG pCO2 34.5 mm Hg 01/17/17 04:35 POC ABG pO2 82 (80-105) 01/31/17 18:55 ABG pO2 160.3 mm Hg (80.0-90.0) H 01/17/17 04:35 POC ABG HCO3 22.4 01/31/17 18:55 POC ABG Total CO2 23 01/31/17 18:55 POC ABG O2 Sat 97 01/31/17 18:55 ABG O2 Saturation 99.0 % (95.0-99.0) 01/17/17 04:35 PT/INR, D-dimer PT 14.1 Sec. (12.2-14.9) 01/17/17 04:10 INR 1.04 (0.87-1.13) 01/17/17 04:10 Abnormal lab findings: Abnormal Labs 01/09/17 01/09/17 01/09/17 10:16 10:16 10:16 WBC RBC Hgb 9.7 L Hct 28.4 L MCV 76 L MCH 26 L RDW 17.2 H Plt Count 448 H Lymph % (Auto) [place] % (Auto) Eos % (Auto) Seg Neutrophils % 79.5 H Seg Neuts % (Manual) Lymphocytes % (Manual) Seg Neutrophils # Seg Neutrophils # Man Lymphocytes # (Manual) APTT 39.6 H POC ABG pH ABG pH POC ABG pCO2 POC ABG pO2 ABG pO2 ABG HCO3 ABG Base Excess ABG Hemoglobin VBG pH Oxyhemoglobin Sodium 132 L Potassium Chloride 96.7 L Carbon Dioxide 21 L BUN 34 H Creatinine Glucose POC Glucose Lactic Acid Calcium 8.3 L AST Alkaline Phosphatase 151 H CK-MB (CK-2) 7.1 H CK-MB (CK-2) Rel Index 5.2 H Albumin 3.3 L TSH Urine WBC (Auto) Salicylates 01/09/17 01/09/17 01/09/17 10:16 10:16 10:16 WBC RBC Hgb Hct MCV MCH RDW Plt Count Lymph % (Auto) [place] % (Auto) Eos % (Auto) Seg Neutrophils % Seg Neuts % (Manual) Lymphocytes % (Manual) Seg Neutrophils # Seg Neutrophils # Man Lymphocytes # (Manual) APTT POC ABG pH ABG pH POC ABG pCO2 POC ABG pO2 ABG pO2 ABG HCO3 ABG Base Excess ABG Hemoglobin VBG pH 7.284 L Oxyhemoglobin Sodium Potassium Chloride Carbon Dioxide BUN Creatinine Glucose POC Glucose Lactic Acid Calcium AST Alkaline Phosphatase CK-MB (CK-2) CK-MB (CK-2) Rel Index Albumin TSH 52.800 H Urine WBC (Auto) Salicylates < 0.3 L 01/09/17 01/09/17 01/09/17 10:23 11:14 12:49 WBC RBC Hgb Hct MCV MCH RDW Plt Count Lymph % (Auto) [place] % (Auto) Eos % (Auto) Seg Neutrophils % Seg Neuts % (Manual) Lymphocytes % (Manual) Seg Neutrophils # Seg Neutrophils # Man Lymphocytes # (Manual) APTT POC ABG pH ABG pH POC ABG pCO2 POC ABG pO2 643 H ABG pO2 ABG HCO3 ABG Base Excess ABG Hemoglobin VBG pH Oxyhemoglobin Sodium Potassium Chloride Carbon Dioxide BUN Creatinine Glucose POC Glucose < 40 L Lactic Acid Calcium AST Alkaline Phosphatase CK-MB (CK-2) CK-MB (CK-2) Rel Index Albumin TSH Urine WBC (Auto) 61.0 H Salicylates 01/09/17 01/09/17 01/09/17 13:13 14:21 15:09 WBC RBC Hgb Hct MCV MCH RDW Plt Count Lymph % (Auto) [place] % (Auto) Eos % (Auto) Seg Neutrophils % Seg Neuts % (Manual) Lymphocytes % (Manual) Seg Neutrophils # Seg Neutrophils # Man Lymphocytes # (Manual) APTT POC ABG pH ABG pH POC ABG pCO2 POC ABG pO2 ABG pO2 ABG HCO3 ABG Base Excess ABG Hemoglobin VBG pH Oxyhemoglobin Sodium Potassium Chloride Carbon Dioxide BUN Creatinine Glucose POC Glucose 128 H 65 L 120 H Lactic Acid Calcium AST Alkaline Phosphatase CK-MB (CK-2) CK-MB (CK-2) Rel Index Albumin TSH Urine WBC (Auto) Salicylates 01/09/17 01/09/17 01/10/17 16:28 17:14 04:30 WBC 24.1 H RBC 3.38 L Hgb 8.5 L Hct 26.0 L MCV 77 L MCH 25 L RDW 17.9 H Plt Count 474 H Lymph % (Auto) [place] % (Auto) Eos % (Auto) Seg Neutrophils % Seg Neuts % (Manual) 88.0 H Lymphocytes % (Manual) 4.0 L Seg Neutrophils # Seg Neutrophils # Man 21.2 H Lymphocytes # (Manual) 1.0 L APTT POC ABG pH ABG pH POC ABG pCO2 POC ABG pO2 ABG pO2 ABG HCO3 ABG Base Excess ABG Hemoglobin VBG pH Oxyhemoglobin Sodium Potassium Chloride Carbon Dioxide BUN Creatinine Glucose POC Glucose 44 L 112 H Lactic Acid Calcium AST Alkaline Phosphatase CK-MB (CK-2) CK-MB (CK-2) Rel Index Albumin TSH Urine WBC (Auto) Salicylates 01/10/17 01/10/17 01/10/17 04:30 05:41 05:45 WBC RBC Hgb Hct MCV MCH RDW Plt Count Lymph % (Auto) [place] % (Auto) Eos % (Auto) Seg Neutrophils % Seg Neuts % (Manual) Lymphocytes % (Manual) Seg Neutrophils # Seg Neutrophils # Man Lymphocytes # (Manual) APTT POC ABG pH ABG pH POC ABG pCO2 26.6 L POC ABG pO2 207 H ABG pO2 ABG HCO3 ABG Base Excess ABG Hemoglobin VBG pH Oxyhemoglobin Sodium Potassium Chloride Carbon Dioxide 17 L BUN 27 H Creatinine Glucose POC Glucose 68 L Lactic Acid Calcium 7.5 L AST Alkaline Phosphatase CK-MB (CK-2) CK-MB (CK-2) Rel Index Albumin TSH Urine WBC (Auto) Salicylates 01/10/17 01/10/17 01/10/17 07:47 10:50 13:41 WBC RBC Hgb Hct MCV MCH RDW Plt Count Lymph % (Auto) [place] % (Auto) Eos % (Auto) Seg Neutrophils % Seg Neuts % (Manual) Lymphocytes % (Manual) Seg Neutrophils # Seg Neutrophils # Man Lymphocytes # (Manual) APTT POC ABG pH ABG pH POC ABG pCO2 POC ABG pO2 ABG pO2 ABG HCO3 ABG Base Excess ABG Hemoglobin VBG pH Oxyhemoglobin Sodium Potassium Chloride Carbon Dioxide BUN Creatinine Glucose POC Glucose 148 H 165 H 114 H Lactic Acid Calcium AST Alkaline Phosphatase CK-MB (CK-2) CK-MB (CK-2) Rel Index Albumin TSH Urine WBC (Auto) Salicylates 01/10/17 01/10/17 01/10/17 20:20 21:39 23:24 WBC RBC Hgb Hct MCV MCH RDW Plt Count Lymph % (Auto) [place] % (Auto) Eos % (Auto) Seg Neutrophils % Seg Neuts % (Manual) Lymphocytes % (Manual) Seg Neutrophils # Seg Neutrophils # Man Lymphocytes # (Manual) APTT POC ABG pH ABG pH POC ABG pCO2 POC ABG pO2 ABG pO2 ABG HCO3 ABG Base Excess ABG Hemoglobin VBG pH Oxyhemoglobin Sodium Potassium Chloride Carbon Dioxide BUN Creatinine Glucose POC Glucose 150 H 175 H 155 H Lactic Acid Calcium AST Alkaline Phosphatase CK-MB (CK-2) CK-MB (CK-2) Rel Index Albumin TSH Urine WBC (Auto) Salicylates 01/11/17 01/11/17 01/11/17 00:19 04:06 05:20 WBC 15.2 H RBC 3.40 L Hgb 8.9 L Hct 26.3 L MCV 78 L MCH 26 L RDW 18.6 H Plt Count 462 H Lymph % (Auto) 13.2 L [place] % (Auto) Eos % (Auto) Seg Neutrophils % 80.8 H Seg Neuts % (Manual) Lymphocytes % (Manual) Seg Neutrophils # 12.3 H Seg Neutrophils # Man Lymphocytes # (Manual) APTT POC ABG pH 7.463 H ABG pH POC ABG pCO2 26.2 L POC ABG pO2 185 H ABG pO2 ABG HCO3 ABG Base Excess ABG Hemoglobin VBG pH Oxyhemoglobin Sodium Potassium Chloride Carbon Dioxide BUN Creatinine Glucose POC Glucose 163 H Lactic Acid Calcium AST Alkaline Phosphatase CK-MB (CK-2) CK-MB (CK-2) Rel Index Albumin TSH Urine WBC (Auto) Salicylates 01/11/17 01/11/17 01/11/17 05:20 06:21 07:57 WBC RBC Hgb Hct MCV MCH RDW Plt Count Lymph % (Auto) [place] % (Auto) Eos % (Auto) Seg Neutrophils % Seg Neuts % (Manual) Lymphocytes % (Manual) Seg Neutrophils # Seg Neutrophils # Man Lymphocytes # (Manual) APTT POC ABG pH ABG pH POC ABG pCO2 POC ABG pO2 ABG pO2 ABG HCO3 ABG Base Excess ABG Hemoglobin VBG pH Oxyhemoglobin Sodium Potassium 3.4 L Chloride 111.5 H Carbon Dioxide 17 L BUN Creatinine Glucose 147 H POC Glucose 139 H 188 H Lactic Acid Calcium 8.0 L AST Alkaline Phosphatase CK-MB (CK-2) CK-MB (CK-2) Rel Index Albumin TSH Urine WBC (Auto) Salicylates 01/11/17 01/11/17 01/11/17 11:46 16:50 23:15 WBC RBC Hgb Hct MCV MCH RDW Plt Count Lymph % (Auto) [place] % (Auto) Eos % (Auto) Seg Neutrophils % Seg Neuts % (Manual) Lymphocytes % (Manual) Seg Neutrophils # Seg Neutrophils # Man Lymphocytes # (Manual) APTT POC ABG pH ABG pH POC ABG pCO2 POC ABG pO2 ABG pO2 ABG HCO3 ABG Base Excess ABG Hemoglobin VBG pH Oxyhemoglobin Sodium Potassium Chloride Carbon Dioxide BUN Creatinine Glucose POC Glucose 199 H 235 H 155 H Lactic Acid Calcium AST Alkaline Phosphatase CK-MB (CK-2) CK-MB (CK-2) Rel Index Albumin TSH Urine WBC (Auto) Salicylates 01/12/17 01/12/17 01/12/17 05:02 06:56 14:50 WBC RBC Hgb Hct MCV MCH RDW Plt Count Lymph % (Auto) [place] % (Auto) Eos % (Auto) Seg Neutrophils % Seg Neuts % (Manual) Lymphocytes % (Manual) Seg Neutrophils # Seg Neutrophils # Man Lymphocytes # (Manual) APTT POC ABG pH ABG pH POC ABG pCO2 28.0 L POC ABG pO2 178 H ABG pO2 ABG HCO3 ABG Base Excess ABG Hemoglobin VBG pH Oxyhemoglobin Sodium Potassium Chloride Carbon Dioxide BUN Creatinine Glucose POC Glucose 119 H 164 H Lactic Acid Calcium AST Alkaline Phosphatase CK-MB (CK-2) CK-MB (CK-2) Rel Index Albumin TSH Urine WBC (Auto) Salicylates 01/13/17 01/13/17 01/13/17 03:37 03:37 04:26 WBC RBC 3.61 L Hgb 9.3 L Hct 28.0 L MCV 78 L MCH 26 L RDW 18.2 H Plt Count Lymph % (Auto) [place] % (Auto) Eos % (Auto) Seg Neutrophils % Seg Neuts % (Manual) Lymphocytes % (Manual) Seg Neutrophils # Seg Neutrophils # Man Lymphocytes # (Manual) APTT POC ABG pH 7.485 H ABG pH POC ABG pCO2 25.4 L POC ABG pO2 73 L ABG pO2 ABG HCO3 ABG Base Excess ABG Hemoglobin VBG pH Oxyhemoglobin Sodium Potassium Chloride 112.4 H Carbon Dioxide 19 L BUN Creatinine Glucose 118 H POC Glucose Lactic Acid Calcium 8.0 L AST Alkaline Phosphatase CK-MB (CK-2) CK-MB (CK-2) Rel Index Albumin TSH Urine WBC (Auto) Salicylates 01/13/17 01/13/17 01/13/17 06:15 11:50 17:31 WBC RBC Hgb Hct MCV MCH RDW Plt Count Lymph % (Auto) [place] % (Auto) Eos % (Auto) Seg Neutrophils % Seg Neuts % (Manual) Lymphocytes % (Manual) Seg Neutrophils # Seg Neutrophils # Man Lymphocytes # (Manual) APTT POC ABG pH ABG pH POC ABG pCO2 POC ABG pO2 ABG pO2 ABG HCO3 ABG Base Excess ABG Hemoglobin VBG pH Oxyhemoglobin Sodium Potassium Chloride Carbon Dioxide BUN Creatinine Glucose POC Glucose 116 H 171 H 203 H Lactic Acid Calcium AST Alkaline Phosphatase CK-MB (CK-2) CK-MB (CK-2) Rel Index Albumin TSH Urine WBC (Auto) Salicylates 01/14/17 01/14/17 01/14/17 00:02 04:50 04:50 WBC RBC 3.32 L Hgb 8.5 L Hct 26.1 L MCV 79 L MCH 26 L RDW 18.2 H Plt Count Lymph % (Auto) [place] % (Auto) 9.0 H Eos % (Auto) Seg Neutrophils % Seg Neuts % (Manual) Lymphocytes % (Manual) Seg Neutrophils # Seg Neutrophils # Man Lymphocytes # (Manual) APTT POC ABG pH ABG pH POC ABG pCO2 POC ABG pO2 ABG pO2 ABG HCO3 ABG Base Excess ABG Hemoglobin VBG pH Oxyhemoglobin Sodium Potassium Chloride 112.5 H Carbon Dioxide BUN Creatinine Glucose 149 H POC Glucose 157 H Lactic Acid Calcium 8.1 L AST Alkaline Phosphatase CK-MB (CK-2) CK-MB (CK-2) Rel Index Albumin TSH Urine WBC (Auto) Salicylates 01/14/17 01/14/17 01/14/17 05:10 11:27 14:07 WBC RBC Hgb Hct MCV MCH RDW Plt Count Lymph % (Auto) [place] % (Auto) Eos % (Auto) Seg Neutrophils % Seg Neuts % (Manual) Lymphocytes % (Manual) Seg Neutrophils # Seg Neutrophils # Man Lymphocytes # (Manual) APTT POC ABG pH ABG pH POC ABG pCO2 POC ABG pO2 ABG pO2 ABG HCO3 ABG Base Excess ABG Hemoglobin VBG pH Oxyhemoglobin Sodium Potassium Chloride Carbon Dioxide BUN Creatinine Glucose POC Glucose 176 H 147 H Lactic Acid Calcium AST Alkaline Phosphatase CK-MB (CK-2) CK-MB (CK-2) Rel Index Albumin TSH Urine WBC (Auto) 53.0 H Salicylates 01/14/17 01/15/17 01/15/17 16:52 00:04 05:26 WBC RBC Hgb Hct MCV MCH RDW Plt Count Lymph % (Auto) [place] % (Auto) Eos % (Auto) Seg Neutrophils % Seg Neuts % (Manual) Lymphocytes % (Manual) Seg Neutrophils # Seg Neutrophils # Man Lymphocytes # (Manual) APTT POC ABG pH ABG pH POC ABG pCO2 POC ABG pO2 ABG pO2 ABG HCO3 ABG Base Excess ABG Hemoglobin VBG pH Oxyhemoglobin Sodium Potassium Chloride Carbon Dioxide BUN Creatinine Glucose POC Glucose 131 H 193 H 215 H Lactic Acid Calcium AST Alkaline Phosphatase CK-MB (CK-2) CK-MB (CK-2) Rel Index Albumin TSH Urine WBC (Auto) Salicylates 01/15/17 01/15/17 01/15/17 11:49 17:47 21:33 WBC RBC Hgb Hct MCV MCH RDW Plt Count Lymph % (Auto) [place] % (Auto) Eos % (Auto) Seg Neutrophils % Seg Neuts % (Manual) Lymphocytes % (Manual) Seg Neutrophils # Seg Neutrophils # Man Lymphocytes # (Manual) APTT POC ABG pH ABG pH POC ABG pCO2 POC ABG pO2 ABG pO2 ABG HCO3 ABG Base Excess ABG Hemoglobin VBG pH Oxyhemoglobin Sodium Potassium Chloride Carbon Dioxide BUN Creatinine Glucose POC Glucose 121 H 211 H 275 H Lactic Acid Calcium AST Alkaline Phosphatase CK-MB (CK-2) CK-MB (CK-2) Rel Index Albumin TSH Urine WBC (Auto) Salicylates 01/16/17 01/16/17 01/16/17 04:30 05:28 13:45 WBC RBC Hgb Hct MCV MCH RDW Plt Count Lymph % (Auto) [place] % (Auto) Eos % (Auto) Seg Neutrophils % Seg Neuts % (Manual) Lymphocytes % (Manual) Seg Neutrophils # Seg Neutrophils # Man Lymphocytes # (Manual) APTT POC ABG pH ABG pH 7.457 H POC ABG pCO2 POC ABG pO2 ABG pO2 55.1 L ABG HCO3 19.4 L ABG Base Excess -4.0 L ABG Hemoglobin 6.8 L VBG pH Oxyhemoglobin 94.9 L Sodium Potassium Chloride Carbon Dioxide BUN Creatinine Glucose POC Glucose 271 H 236 H Lactic Acid Calcium AST Alkaline Phosphatase CK-MB (CK-2) CK-MB (CK-2) Rel Index Albumin TSH Urine WBC (Auto) Salicylates 01/16/17 01/17/17 01/17/17 21:39 04:10 04:10 WBC 4.4 L RBC 2.98 L Hgb 7.7 L Hct 23.3 L MCV 78 L MCH 26 L RDW 18.1 H Plt Count Lymph % (Auto) [place] % (Auto) Eos % (Auto) Seg Neutrophils % Seg Neuts % (Manual) Lymphocytes % (Manual) Seg Neutrophils # Seg Neutrophils # Man Lymphocytes # (Manual) APTT POC ABG pH ABG pH POC ABG pCO2 POC ABG pO2 ABG pO2 ABG HCO3 ABG Base Excess ABG Hemoglobin VBG pH Oxyhemoglobin Sodium Potassium 3.3 L Chloride 108.7 H Carbon Dioxide 20 L BUN 8 L Creatinine Glucose 202 H POC Glucose 258 H Lactic Acid Calcium 7.6 L AST Alkaline Phosphatase CK-MB (CK-2) CK-MB (CK-2) Rel Index Albumin TSH Urine WBC (Auto) Salicylates 01/17/17 01/17/17 01/17/17 04:35 12:23 16:01 WBC RBC Hgb Hct MCV MCH RDW Plt Count Lymph % (Auto) [place] % (Auto) Eos % (Auto) Seg Neutrophils % Seg Neuts % (Manual) Lymphocytes % (Manual) Seg Neutrophils # Seg Neutrophils # Man Lymphocytes # (Manual) APTT POC ABG pH ABG pH POC ABG pCO2 POC ABG pO2 ABG pO2 160.3 H ABG HCO3 ABG Base Excess -2.3 L ABG Hemoglobin 7.9 L VBG pH Oxyhemoglobin Sodium Potassium Chloride Carbon Dioxide BUN Creatinine Glucose POC Glucose 321 H 239 H Lactic Acid Calcium AST Alkaline Phosphatase CK-MB (CK-2) CK-MB (CK-2) Rel Index Albumin TSH Urine WBC (Auto) Salicylates 01/18/17 01/18/17 01/18/17 05:07 12:09 17:54 WBC RBC Hgb Hct MCV MCH RDW Plt Count Lymph % (Auto) [place] % (Auto) Eos % (Auto) Seg Neutrophils % Seg Neuts % (Manual) Lymphocytes % (Manual) Seg Neutrophils # Seg Neutrophils # Man Lymphocytes # (Manual) APTT POC ABG pH ABG pH POC ABG pCO2 POC ABG pO2 ABG pO2 ABG HCO3 ABG Base Excess ABG Hemoglobin VBG pH Oxyhemoglobin Sodium Potassium Chloride Carbon Dioxide BUN Creatinine Glucose POC Glucose 155 H 203 H 132 H Lactic Acid Calcium AST Alkaline Phosphatase CK-MB (CK-2) CK-MB (CK-2) Rel Index Albumin TSH Urine WBC (Auto) Salicylates 01/18/17 01/19/17 01/19/17 23:43 04:28 12:11 WBC RBC Hgb Hct MCV MCH RDW Plt Count Lymph % (Auto) [place] % (Auto) Eos % (Auto) Seg Neutrophils % Seg Neuts % (Manual) Lymphocytes % (Manual) Seg Neutrophils # Seg Neutrophils # Man Lymphocytes # (Manual) APTT POC ABG pH ABG pH POC ABG pCO2 POC ABG pO2 ABG pO2 ABG HCO3 ABG Base Excess ABG Hemoglobin VBG pH Oxyhemoglobin Sodium Potassium Chloride Carbon Dioxide BUN Creatinine Glucose POC Glucose 125 H 182 H 153 H Lactic Acid Calcium AST Alkaline Phosphatase CK-MB (CK-2) CK-MB (CK-2) Rel Index Albumin TSH Urine WBC (Auto) Salicylates 01/19/17 01/20/17 01/20/17 17:23 00:12 05:44 WBC RBC Hgb Hct MCV MCH RDW Plt Count Lymph % (Auto) [place] % (Auto) Eos % (Auto) Seg Neutrophils % Seg Neuts % (Manual) Lymphocytes % (Manual) Seg Neutrophils # Seg Neutrophils # Man Lymphocytes # (Manual) APTT POC ABG pH ABG pH POC ABG pCO2 POC ABG pO2 ABG pO2 ABG HCO3 ABG Base Excess ABG Hemoglobin VBG pH Oxyhemoglobin Sodium Potassium Chloride Carbon Dioxide BUN Creatinine Glucose POC Glucose 66 L 139 H 176 H Lactic Acid Calcium AST Alkaline Phosphatase CK-MB (CK-2) CK-MB (CK-2) Rel Index Albumin TSH Urine WBC (Auto) Salicylates 01/20/17 01/20/17 01/20/17 11:48 17:42 23:43 WBC RBC Hgb Hct MCV MCH RDW Plt Count Lymph % (Auto) [place] % (Auto) Eos % (Auto) Seg Neutrophils % Seg Neuts % (Manual) Lymphocytes % (Manual) Seg Neutrophils # Seg Neutrophils # Man Lymphocytes # (Manual) APTT POC ABG pH ABG pH POC ABG pCO2 POC ABG pO2 ABG pO2 ABG HCO3 ABG Base Excess ABG Hemoglobin VBG pH Oxyhemoglobin Sodium Potassium Chloride Carbon Dioxide BUN Creatinine Glucose POC Glucose 218 H 132 H 178 H Lactic Acid Calcium AST Alkaline Phosphatase CK-MB (CK-2) CK-MB (CK-2) Rel Index Albumin TSH Urine WBC (Auto) Salicylates 01/21/17 01/21/17 01/21/17 05:34 11:17 23:37 WBC RBC Hgb Hct MCV MCH RDW Plt Count Lymph % (Auto) [place] % (Auto) Eos % (Auto) Seg Neutrophils % Seg Neuts % (Manual) Lymphocytes % (Manual) Seg Neutrophils # Seg Neutrophils # Man Lymphocytes # (Manual) APTT POC ABG pH ABG pH POC ABG pCO2 POC ABG pO2 ABG pO2 ABG HCO3 ABG Base Excess ABG Hemoglobin VBG pH Oxyhemoglobin Sodium Potassium Chloride Carbon Dioxide BUN Creatinine Glucose POC Glucose 106 H 213 H 140 H Lactic Acid Calcium AST Alkaline Phosphatase CK-MB (CK-2) CK-MB (CK-2) Rel Index Albumin TSH Urine WBC (Auto) Salicylates 01/22/17 01/22/17 01/22/17 04:00 04:00 04:58 WBC RBC 3.26 L Hgb 8.3 L Hct 25.5 L MCV 78 L MCH 25 L RDW 17.9 H Plt Count Lymph % (Auto) [place] % (Auto) 7.9 H Eos % (Auto) 6.2 H Seg Neutrophils % Seg Neuts % (Manual) Lymphocytes % (Manual) Seg Neutrophils # Seg Neutrophils # Man Lymphocytes # (Manual) APTT POC ABG pH ABG pH POC ABG pCO2 POC ABG pO2 ABG pO2 ABG HCO3 ABG Base Excess ABG Hemoglobin VBG pH Oxyhemoglobin Sodium Potassium Chloride 95.5 L Carbon Dioxide 31 H D BUN Creatinine Glucose 134 H POC Glucose 146 H Lactic Acid Calcium AST 44 H Alkaline Phosphatase 379 H CK-MB (CK-2) CK-MB (CK-2) Rel Index Albumin 2.7 L TSH Urine WBC (Auto) Salicylates 01/22/17 01/22/17 01/22/17 12:12 18:12 23:39 WBC RBC Hgb Hct MCV MCH RDW Plt Count Lymph % (Auto) [place] % (Auto) Eos % (Auto) Seg Neutrophils % Seg Neuts % (Manual) Lymphocytes % (Manual) Seg Neutrophils # Seg Neutrophils # Man Lymphocytes # (Manual) APTT POC ABG pH ABG pH POC ABG pCO2 POC ABG pO2 ABG pO2 ABG HCO3 ABG Base Excess ABG Hemoglobin VBG pH Oxyhemoglobin Sodium Potassium Chloride Carbon Dioxide BUN Creatinine Glucose POC Glucose 255 H 182 H 134 H Lactic Acid Calcium AST Alkaline Phosphatase CK-MB (CK-2) CK-MB (CK-2) Rel Index Albumin TSH Urine WBC (Auto) Salicylates 01/23/17 01/23/17 01/23/17 04:43 12:12 17:36 WBC RBC Hgb Hct MCV MCH RDW Plt Count Lymph % (Auto) [place] % (Auto) Eos % (Auto) Seg Neutrophils % Seg Neuts % (Manual) Lymphocytes % (Manual) Seg Neutrophils # Seg Neutrophils # Man Lymphocytes # (Manual) APTT POC ABG pH ABG pH POC ABG pCO2 POC ABG pO2 ABG pO2 ABG HCO3 ABG Base Excess ABG Hemoglobin VBG pH Oxyhemoglobin Sodium Potassium Chloride Carbon Dioxide BUN Creatinine Glucose POC Glucose 218 H 128 H 156 H Lactic Acid Calcium AST Alkaline Phosphatase CK-MB (CK-2) CK-MB (CK-2) Rel Index Albumin TSH Urine WBC (Auto) Salicylates 01/24/17 01/24/17 01/24/17 00:08 05:16 11:40 WBC RBC Hgb Hct MCV MCH RDW Plt Count Lymph % (Auto) [place] % (Auto) Eos % (Auto) Seg Neutrophils % Seg Neuts % (Manual) Lymphocytes % (Manual) Seg Neutrophils # Seg Neutrophils # Man Lymphocytes # (Manual) APTT POC ABG pH ABG pH POC ABG pCO2 POC ABG pO2 ABG pO2 ABG HCO3 ABG Base Excess ABG Hemoglobin VBG pH Oxyhemoglobin Sodium Potassium Chloride Carbon Dioxide BUN Creatinine Glucose POC Glucose 129 H 169 H 187 H Lactic Acid Calcium AST Alkaline Phosphatase CK-MB (CK-2) CK-MB (CK-2) Rel Index Albumin TSH Urine WBC (Auto) Salicylates 01/24/17 01/24/17 01/25/17 17:43 23:23 04:56 WBC RBC Hgb Hct MCV MCH RDW Plt Count Lymph % (Auto) [place] % (Auto) Eos % (Auto) Seg Neutrophils % Seg Neuts % (Manual) Lymphocytes % (Manual) Seg Neutrophils # Seg Neutrophils # Man Lymphocytes # (Manual) APTT POC ABG pH ABG pH POC ABG pCO2 POC ABG pO2 ABG pO2 ABG HCO3 ABG Base Excess ABG Hemoglobin VBG pH Oxyhemoglobin Sodium Potassium Chloride Carbon Dioxide BUN Creatinine Glucose POC Glucose 215 H 222 H 210 H Lactic Acid Calcium AST Alkaline Phosphatase CK-MB (CK-2) CK-MB (CK-2) Rel Index Albumin TSH Urine WBC (Auto) Salicylates 01/25/17 01/25/17 01/26/17 11:52 17:37 00:02 WBC RBC Hgb Hct MCV MCH RDW Plt Count Lymph % (Auto) [place] % (Auto) Eos % (Auto) Seg Neutrophils % Seg Neuts % (Manual) Lymphocytes % (Manual) Seg Neutrophils # Seg Neutrophils # Man Lymphocytes # (Manual) APTT POC ABG pH ABG pH POC ABG pCO2 POC ABG pO2 ABG pO2 ABG HCO3 ABG Base Excess ABG Hemoglobin VBG pH Oxyhemoglobin Sodium Potassium Chloride Carbon Dioxide BUN Creatinine Glucose POC Glucose 284 H 218 H 192 H Lactic Acid Calcium AST Alkaline Phosphatase CK-MB (CK-2) CK-MB (CK-2) Rel Index Albumin TSH Urine WBC (Auto) Salicylates 01/26/17 01/26/17 01/26/17 05:33 12:17 17:50 WBC RBC Hgb Hct MCV MCH RDW Plt Count Lymph % (Auto) [place] % (Auto) Eos % (Auto) Seg Neutrophils % Seg Neuts % (Manual) Lymphocytes % (Manual) Seg Neutrophils # Seg Neutrophils # Man Lymphocytes # (Manual) APTT POC ABG pH ABG pH POC ABG pCO2 POC ABG pO2 ABG pO2 ABG HCO3 ABG Base Excess ABG Hemoglobin VBG pH Oxyhemoglobin Sodium Potassium Chloride Carbon Dioxide BUN Creatinine Glucose POC Glucose 199 H 227 H 229 H Lactic Acid Calcium AST Alkaline Phosphatase CK-MB (CK-2) CK-MB (CK-2) Rel Index Albumin TSH Urine WBC (Auto) Salicylates 01/26/17 01/27/17 01/27/17 23:57 05:31 11:42 WBC RBC Hgb Hct MCV MCH RDW Plt Count Lymph % (Auto) [place] % (Auto) Eos % (Auto) Seg Neutrophils % Seg Neuts % (Manual) Lymphocytes % (Manual) Seg Neutrophils # Seg Neutrophils # Man Lymphocytes # (Manual) APTT POC ABG pH ABG pH POC ABG pCO2 POC ABG pO2 ABG pO2 ABG HCO3 ABG Base Excess ABG Hemoglobin VBG pH Oxyhemoglobin Sodium Potassium Chloride Carbon Dioxide BUN Creatinine Glucose POC Glucose 186 H 285 H 260 H Lactic Acid Calcium AST Alkaline Phosphatase CK-MB (CK-2) CK-MB (CK-2) Rel Index Albumin TSH Urine WBC (Auto) Salicylates 01/27/17 01/27/17 01/27/17 17:47 23:58 Unknown WBC 12.1 H RBC 3.28 L Hgb 8.5 L Hct 25.5 L MCV 78 L MCH 26 L RDW 16.8 H Plt Count 601 H Lymph % (Auto) [place] % (Auto) Eos % (Auto) Seg Neutrophils % Seg Neuts % (Manual) Lymphocytes % (Manual) Seg Neutrophils # Seg Neutrophils # Man Lymphocytes # (Manual) APTT POC ABG pH ABG pH POC ABG pCO2 POC ABG pO2 ABG pO2 ABG HCO3 ABG Base Excess ABG Hemoglobin VBG pH Oxyhemoglobin Sodium Potassium Chloride Carbon Dioxide BUN Creatinine Glucose POC Glucose 329 H 225 H Lactic Acid Calcium AST Alkaline Phosphatase CK-MB (CK-2) CK-MB (CK-2) Rel Index Albumin TSH Urine WBC (Auto) Salicylates 01/27/17 01/28/17 01/28/17 Unknown 03:44 03:44 WBC RBC 3.14 L Hgb 8.2 L Hct 24.1 L MCV 77 L MCH 26 L RDW 16.9 H Plt Count 567 H Lymph % (Auto) [place] % (Auto) Eos % (Auto) Seg Neutrophils % Seg Neuts % (Manual) Lymphocytes % (Manual) Seg Neutrophils # Seg Neutrophils # Man Lymphocytes # (Manual) APTT POC ABG pH ABG pH POC ABG pCO2 POC ABG pO2 ABG pO2 ABG HCO3 ABG Base Excess ABG Hemoglobin VBG pH Oxyhemoglobin Sodium 128 L Potassium 5.4 H Chloride 87.5 L Carbon Dioxide BUN 44 H 42 H Creatinine Glucose 250 H 128 H POC Glucose Lactic Acid Calcium AST Alkaline Phosphatase CK-MB (CK-2) CK-MB (CK-2) Rel Index Albumin TSH Urine WBC (Auto) Salicylates 01/28/17 01/28/17 01/28/17 11:43 16:47 17:52 WBC RBC Hgb Hct MCV MCH RDW Plt Count Lymph % (Auto) [place] % (Auto) Eos % (Auto) Seg Neutrophils % Seg Neuts % (Manual) Lymphocytes % (Manual) Seg Neutrophils # Seg Neutrophils # Man Lymphocytes # (Manual) APTT POC ABG pH ABG pH POC ABG pCO2 POC ABG pO2 ABG pO2 ABG HCO3 ABG Base Excess ABG Hemoglobin VBG pH Oxyhemoglobin Sodium Potassium Chloride Carbon Dioxide BUN Creatinine Glucose POC Glucose 351 H 249 H Lactic Acid Calcium AST Alkaline Phosphatase CK-MB (CK-2) CK-MB (CK-2) Rel Index Albumin TSH Urine WBC (Auto) > 182.0 H Salicylates 01/29/17 01/29/17 01/29/17 05:25 05:25 09:32 WBC 13.6 H RBC 3.25 L Hgb 8.3 L Hct 25.1 L MCV 77 L MCH 26 L RDW 16.8 H Plt Count 514 H Lymph % (Auto) [place] % (Auto) Eos % (Auto) Seg Neutrophils % Seg Neuts % (Manual) Lymphocytes % (Manual) Seg Neutrophils # Seg Neutrophils # Man Lymphocytes # (Manual) APTT POC ABG pH ABG pH POC ABG pCO2 POC ABG pO2 ABG pO2 ABG HCO3 ABG Base Excess ABG Hemoglobin VBG pH Oxyhemoglobin Sodium Potassium Chloride 97.8 L Carbon Dioxide BUN 34 H Creatinine Glucose 222 H POC Glucose Lactic Acid 2.50 H* Calcium AST Alkaline Phosphatase CK-MB (CK-2) CK-MB (CK-2) Rel Index Albumin TSH Urine WBC (Auto) Salicylates 01/29/17 01/29/17 01/29/17 11:56 18:11 23:55 WBC RBC Hgb Hct MCV MCH RDW Plt Count Lymph % (Auto) [place] % (Auto) Eos % (Auto) Seg Neutrophils % Seg Neuts % (Manual) Lymphocytes % (Manual) Seg Neutrophils # Seg Neutrophils # Man Lymphocytes # (Manual) APTT POC ABG pH ABG pH POC ABG pCO2 POC ABG pO2 ABG pO2 ABG HCO3 ABG Base Excess ABG Hemoglobin VBG pH Oxyhemoglobin Sodium Potassium Chloride Carbon Dioxide BUN Creatinine Glucose POC Glucose 261 H 215 H 176 H Lactic Acid Calcium AST Alkaline Phosphatase CK-MB (CK-2) CK-MB (CK-2) Rel Index Albumin TSH Urine WBC (Auto) Salicylates 01/30/17 01/30/17 01/30/17 05:31 05:31 05:34 WBC 15.2 H RBC 3.09 L Hgb 7.9 L Hct 23.9 L MCV 77 L MCH 26 L RDW 16.9 H Plt Count 569 H Lymph % (Auto) [place] % (Auto) Eos % (Auto) Seg Neutrophils % Seg Neuts % (Manual) Lymphocytes % (Manual) Seg Neutrophils # Seg Neutrophils # Man Lymphocytes # (Manual) APTT POC ABG pH ABG pH POC ABG pCO2 POC ABG pO2 ABG pO2 ABG HCO3 ABG Base Excess ABG Hemoglobin VBG pH Oxyhemoglobin Sodium Potassium Chloride Carbon Dioxide BUN 24 H Creatinine Glucose 235 H POC Glucose 243 H Lactic Acid Calcium AST Alkaline Phosphatase CK-MB (CK-2) CK-MB (CK-2) Rel Index Albumin TSH Urine WBC (Auto) Salicylates 01/30/17 01/30/17 01/30/17 11:38 17:58 23:29 WBC RBC Hgb Hct MCV MCH RDW Plt Count Lymph % (Auto) [place] % (Auto) Eos % (Auto) Seg Neutrophils % Seg Neuts % (Manual) Lymphocytes % (Manual) Seg Neutrophils # Seg Neutrophils # Man Lymphocytes # (Manual) APTT POC ABG pH ABG pH POC ABG pCO2 POC ABG pO2 ABG pO2 ABG HCO3 ABG Base Excess ABG Hemoglobin VBG pH Oxyhemoglobin Sodium Potassium Chloride Carbon Dioxide BUN Creatinine Glucose POC Glucose 298 H 208 H 245 H Lactic Acid Calcium AST Alkaline Phosphatase CK-MB (CK-2) CK-MB (CK-2) Rel Index Albumin TSH Urine WBC (Auto) Salicylates 01/31/17 01/31/17 01/31/17 04:39 04:39 05:57 WBC 11.4 H RBC 3.22 L Hgb 8.2 L Hct 24.9 L MCV 78 L MCH 25 L RDW 17.2 H Plt Count 576 H Lymph % (Auto) [place] % (Auto) Eos % (Auto) Seg Neutrophils % Seg Neuts % (Manual) Lymphocytes % (Manual) Seg Neutrophils # Seg Neutrophils # Man Lymphocytes # (Manual) APTT POC ABG pH ABG pH POC ABG pCO2 POC ABG pO2 ABG pO2 ABG HCO3 ABG Base Excess ABG Hemoglobin VBG pH Oxyhemoglobin Sodium Potassium Chloride Carbon Dioxide BUN Creatinine 0.7 L Glucose 223 H POC Glucose 264 H Lactic Acid Calcium AST Alkaline Phosphatase CK-MB (CK-2) CK-MB (CK-2) Rel Index Albumin TSH Urine WBC (Auto) Salicylates 01/31/17 01/31/17 01/31/17 12:23 17:41 18:55 WBC RBC Hgb Hct MCV MCH RDW Plt Count Lymph % (Auto) [place] % (Auto) Eos % (Auto) Seg Neutrophils % Seg Neuts % (Manual) Lymphocytes % (Manual) Seg Neutrophils # Seg Neutrophils # Man Lymphocytes # (Manual) APTT POC ABG pH ABG pH POC ABG pCO2 32.8 L POC ABG pO2 ABG pO2 ABG HCO3 ABG Base Excess ABG Hemoglobin VBG pH Oxyhemoglobin Sodium Potassium Chloride Carbon Dioxide BUN Creatinine Glucose POC Glucose 252 H 208 H Lactic Acid Calcium AST Alkaline Phosphatase CK-MB (CK-2) CK-MB (CK-2) Rel Index Albumin TSH Urine WBC (Auto) Salicylates 01/31/17 02/01/17 02/01/17 22:59 03:38 03:38 WBC RBC 2.81 L Hgb 7.4 L Hct 22.1 L MCV 79 L MCH 27 L RDW 17.0 H Plt Count 540 H Lymph % (Auto) [place] % (Auto) Eos % (Auto) Seg Neutrophils % Seg Neuts % (Manual) Lymphocytes % (Manual) Seg Neutrophils # Seg Neutrophils # Man Lymphocytes # (Manual) APTT POC ABG pH ABG pH POC ABG pCO2 POC ABG pO2 ABG pO2 ABG HCO3 ABG Base Excess ABG Hemoglobin VBG pH Oxyhemoglobin Sodium Potassium Chloride Carbon Dioxide 21 L BUN Creatinine 0.7 L Glucose POC Glucose 40 L Lactic Acid Calcium AST Alkaline Phosphatase CK-MB (CK-2) CK-MB (CK-2) Rel Index Albumin TSH Urine WBC (Auto) Salicylates 02/01/17 02/01/17 02/01/17 05:17 12:19 16:44 WBC RBC Hgb Hct MCV MCH RDW Plt Count Lymph % (Auto) [place] % (Auto) Eos % (Auto) Seg Neutrophils % Seg Neuts % (Manual) Lymphocytes % (Manual) Seg Neutrophils # Seg Neutrophils # Man Lymphocytes # (Manual) APTT POC ABG pH ABG pH POC ABG pCO2 POC ABG pO2 ABG pO2 ABG HCO3 ABG Base Excess ABG Hemoglobin VBG pH Oxyhemoglobin Sodium Potassium Chloride Carbon Dioxide BUN Creatinine Glucose POC Glucose 140 H 213 H 172 H Lactic Acid Calcium AST Alkaline Phosphatase CK-MB (CK-2) CK-MB (CK-2) Rel Index Albumin TSH Urine WBC (Auto) Salicylates 02/01/17 02/02/17 02/02/17 23:59 05:14 11:24 WBC RBC Hgb Hct MCV MCH RDW Plt Count Lymph % (Auto) [place] % (Auto) Eos % (Auto) Seg Neutrophils % Seg Neuts % (Manual) Lymphocytes % (Manual) Seg Neutrophils # Seg Neutrophils # Man Lymphocytes # (Manual) APTT POC ABG pH ABG pH POC ABG pCO2 POC ABG pO2 ABG pO2 ABG HCO3 ABG Base Excess ABG Hemoglobin VBG pH Oxyhemoglobin Sodium Potassium Chloride Carbon Dioxide BUN Creatinine Glucose POC Glucose 181 H 194 H 209 H Lactic Acid Calcium AST Alkaline Phosphatase CK-MB (CK-2) CK-MB (CK-2) Rel Index Albumin TSH Urine WBC (Auto) Salicylates 02/02/17 02/02/17 02/02/17 11:46 11:46 17:47 WBC RBC 2.94 L Hgb 7.5 L Hct 23.0 L MCV 78 L MCH 25 L RDW 16.9 H Plt Count 520 H Lymph % (Auto) [place] % (Auto) Eos % (Auto) Seg Neutrophils % Seg Neuts % (Manual) Lymphocytes % (Manual) Seg Neutrophils # Seg Neutrophils # Man Lymphocytes # (Manual) APTT POC ABG pH ABG pH POC ABG pCO2 POC ABG pO2 ABG pO2 ABG HCO3 ABG Base Excess ABG Hemoglobin VBG pH Oxyhemoglobin Sodium Potassium Chloride Carbon Dioxide BUN Creatinine 0.6 L Glucose 189 H POC Glucose 147 H Lactic Acid Calcium 8.1 L AST Alkaline Phosphatase CK-MB (CK-2) CK-MB (CK-2) Rel Index Albumin TSH Urine WBC (Auto) Salicylates 02/02/17 02/03/17 02/03/17 23:32 05:53 11:19 WBC RBC Hgb Hct MCV MCH RDW Plt Count Lymph % (Auto) [place] % (Auto) Eos % (Auto) Seg Neutrophils % Seg Neuts % (Manual) Lymphocytes % (Manual) Seg Neutrophils # Seg Neutrophils # Man Lymphocytes # (Manual) APTT POC ABG pH ABG pH POC ABG pCO2 POC ABG pO2 ABG pO2 ABG HCO3 ABG Base Excess ABG Hemoglobin VBG pH Oxyhemoglobin Sodium Potassium Chloride Carbon Dioxide BUN Creatinine Glucose POC Glucose 176 H 224 H 228 H Lactic Acid Calcium AST Alkaline Phosphatase CK-MB (CK-2) CK-MB (CK-2) Rel Index Albumin TSH Urine WBC (Auto) Salicylates 02/03/17 02/03/17 02/04/17 16:59 23:38 05:45 WBC RBC Hgb Hct MCV MCH RDW Plt Count Lymph % (Auto) [place] % (Auto) Eos % (Auto) Seg Neutrophils % Seg Neuts % (Manual) Lymphocytes % (Manual) Seg Neutrophils # Seg Neutrophils # Man Lymphocytes # (Manual) APTT POC ABG pH ABG pH POC ABG pCO2 POC ABG pO2 ABG pO2 ABG HCO3 ABG Base Excess ABG Hemoglobin VBG pH Oxyhemoglobin Sodium Potassium Chloride Carbon Dioxide BUN Creatinine Glucose POC Glucose 189 H 191 H 251 H Lactic Acid Calcium AST Alkaline Phosphatase CK-MB (CK-2) CK-MB (CK-2) Rel Index Albumin TSH Urine WBC (Auto) Salicylates 02/04/17 02/04/17 02/05/17 11:20 17:20 00:17 WBC RBC Hgb Hct MCV MCH RDW Plt Count Lymph % (Auto) [place] % (Auto) Eos % (Auto) Seg Neutrophils % Seg Neuts % (Manual) Lymphocytes % (Manual) Seg Neutrophils # Seg Neutrophils # Man Lymphocytes # (Manual) APTT POC ABG pH ABG pH POC ABG pCO2 POC ABG pO2 ABG pO2 ABG HCO3 ABG Base Excess ABG Hemoglobin VBG pH Oxyhemoglobin Sodium Potassium Chloride Carbon Dioxide BUN Creatinine Glucose POC Glucose 243 H 163 H 200 H Lactic Acid Calcium AST Alkaline Phosphatase CK-MB (CK-2) CK-MB (CK-2) Rel Index Albumin TSH Urine WBC (Auto) Salicylates 02/05/17 02/05/17 02/05/17 05:38 12:38 16:29 WBC RBC Hgb Hct MCV MCH RDW Plt Count Lymph % (Auto) [place] % (Auto) Eos % (Auto) Seg Neutrophils % Seg Neuts % (Manual) Lymphocytes % (Manual) Seg Neutrophils # Seg Neutrophils # Man Lymphocytes # (Manual) APTT POC ABG pH ABG pH POC ABG pCO2 POC ABG pO2 ABG pO2 ABG HCO3 ABG Base Excess ABG Hemoglobin VBG pH Oxyhemoglobin Sodium Potassium Chloride Carbon Dioxide BUN Creatinine Glucose POC Glucose 248 H 241 H 257 H Lactic Acid Calcium AST Alkaline Phosphatase CK-MB (CK-2) CK-MB (CK-2) Rel Index Albumin TSH Urine WBC (Auto) Salicylates 02/05/17 02/06/17 02/06/17 23:56 05:30 11:50 WBC RBC Hgb Hct MCV MCH RDW Plt Count Lymph % (Auto) [place] % (Auto) Eos % (Auto) Seg Neutrophils % Seg Neuts % (Manual) Lymphocytes % (Manual) Seg Neutrophils # Seg Neutrophils # Man Lymphocytes # (Manual) APTT POC ABG pH ABG pH POC ABG pCO2 POC ABG pO2 ABG pO2 ABG HCO3 ABG Base Excess ABG Hemoglobin VBG pH Oxyhemoglobin Sodium Potassium Chloride Carbon Dioxide BUN Creatinine Glucose POC Glucose 258 H 120 H 254 H Lactic Acid Calcium AST Alkaline Phosphatase CK-MB (CK-2) CK-MB (CK-2) Rel Index Albumin TSH Urine WBC (Auto) Salicylates 02/06/17 02/06/17 02/07/17 17:11 23:50 05:22 WBC RBC Hgb Hct MCV MCH RDW Plt Count Lymph % (Auto) [place] % (Auto) Eos % (Auto) Seg Neutrophils % Seg Neuts % (Manual) Lymphocytes % (Manual) Seg Neutrophils # Seg Neutrophils # Man Lymphocytes # (Manual) APTT POC ABG pH ABG pH POC ABG pCO2 POC ABG pO2 ABG pO2 ABG HCO3 ABG Base Excess ABG Hemoglobin VBG pH Oxyhemoglobin Sodium Potassium Chloride Carbon Dioxide BUN Creatinine Glucose POC Glucose 149 H 240 H 258 H Lactic Acid Calcium AST Alkaline Phosphatase CK-MB (CK-2) CK-MB (CK-2) Rel Index Albumin TSH Urine WBC (Auto) Salicylates 02/07/17 02/07/1702/07/17 11:15 18:33 23:59 WBC RBC Hgb Hct MCV MCH RDW Plt Count Lymph % (Auto) [place] % (Auto) Eos % (Auto) Seg Neutrophils % Seg Neuts % (Manual) Lymphocytes % (Manual) Seg Neutrophils # Seg Neutrophils # Man Lymphocytes # (Manual) APTT POC ABG pH ABG pH POC ABG pCO2 POC ABG pO2 ABG pO2 ABG HCO3 ABG Base Excess ABG Hemoglobin VBG pH Oxyhemoglobin Sodium Potassium Chloride Carbon Dioxide BUN Creatinine Glucose POC Glucose 239 H 176 H 186 H Lactic Acid Calcium AST Alkaline Phosphatase CK-MB (CK-2) CK-MB (CK-2) Rel Index Albumin TSH Urine WBC (Auto) Salicylates 02/08/17 02/08/17 02/08/17 06:15 11:55 16:55 WBC RBC Hgb Hct MCV MCH RDW Plt Count Lymph % (Auto) [place] % (Auto) Eos % (Auto) Seg Neutrophils % Seg Neuts % (Manual) Lymphocytes % (Manual) Seg Neutrophils # Seg Neutrophils # Man Lymphocytes # (Manual) APTT POC ABG pH ABG pH POC ABG pCO2 POC ABG pO2 ABG pO2 ABG HCO3 ABG Base Excess ABG Hemoglobin VBG pH Oxyhemoglobin Sodium Potassium Chloride Carbon Dioxide BUN Creatinine Glucose POC Glucose 195 H 129 H 246 H Lactic Acid Calcium AST Alkaline Phosphatase CK-MB (CK-2) CK-MB (CK-2) Rel Index Albumin TSH Urine WBC (Auto) Salicylates 02/08/17 02/09/17 02/09/17 23:51 05:51 07:24 WBC 14.7 H RBC 3.39 L Hgb 8.9 L Hct 26.4 L MCV 78 L MCH 26 L RDW 18.4 H Plt Count 670 H Lymph % (Auto) 11.8 L [place] % (Auto) Eos % (Auto) Seg Neutrophils % 81.2 H Seg Neuts % (Manual) Lymphocytes % (Manual) Seg Neutrophils # 11.9 H Seg Neutrophils # Man Lymphocytes # (Manual) APTT POC ABG pH ABG pH POC ABG pCO2 POC ABG pO2 ABG pO2 ABG HCO3 ABG Base Excess ABG Hemoglobin VBG pH Oxyhemoglobin Sodium Potassium Chloride Carbon Dioxide BUN Creatinine Glucose POC Glucose 262 H 295 H Lactic Acid Calcium AST Alkaline Phosphatase CK-MB (CK-2) CK-MB (CK-2) Rel Index Albumin TSH Urine WBC (Auto) Salicylates 02/09/17 02/09/17 02/09/17 07:24 12:08 18:39 WBC RBC Hgb Hct MCV MCH RDW Plt Count Lymph % (Auto) [place] % (Auto) Eos % (Auto) Seg Neutrophils % Seg Neuts % (Manual) Lymphocytes % (Manual) Seg Neutrophils # Seg Neutrophils # Man Lymphocytes # (Manual) APTT POC ABG pH ABG pH POC ABG pCO2 POC ABG pO2 ABG pO2 ABG HCO3 ABG Base Excess ABG Hemoglobin VBG pH Oxyhemoglobin Sodium Potassium Chloride 95.5 L Carbon Dioxide BUN 52 H Creatinine Glucose 277 H POC Glucose 236 H 151 H Lactic Acid Calcium AST Alkaline Phosphatase CK-MB (CK-2) CK-MB (CK-2) Rel Index Albumin TSH Urine WBC (Auto) Salicylates 02/10/17 02/10/17 02/10/17 00:01 05:44 11:21 WBC RBC Hgb Hct MCV MCH RDW Plt Count Lymph % (Auto) [place] % (Auto) Eos % (Auto) Seg Neutrophils % Seg Neuts % (Manual) Lymphocytes % (Manual) Seg Neutrophils # Seg Neutrophils # Man Lymphocytes # (Manual) APTT POC ABG pH ABG pH POC ABG pCO2 POC ABG pO2 ABG pO2 ABG HCO3 ABG Base Excess ABG Hemoglobin VBG pH Oxyhemoglobin Sodium Potassium Chloride Carbon Dioxide BUN Creatinine Glucose POC Glucose 210 H 201 H 233 H Lactic Acid Calcium AST Alkaline Phosphatase CK-MB (CK-2) CK-MB (CK-2) Rel Index Albumin TSH Urine WBC (Auto) Salicylates 02/10/17 02/10/17 02/11/17 17:29 23:56 05:24 WBC RBC Hgb Hct MCV MCH RDW Plt Count Lymph % (Auto) [place] % (Auto) Eos % (Auto) Seg Neutrophils % Seg Neuts % (Manual) Lymphocytes % (Manual) Seg Neutrophils # Seg Neutrophils # Man Lymphocytes # (Manual) APTT POC ABG pH ABG pH POC ABG pCO2 POC ABG pO2 ABG pO2 ABG HCO3 ABG Base Excess ABG Hemoglobin VBG pH Oxyhemoglobin Sodium Potassium Chloride Carbon Dioxide BUN Creatinine Glucose POC Glucose 167 H 191 H 135 H Lactic Acid Calcium AST Alkaline Phosphatase CK-MB (CK-2) CK-MB (CK-2) Rel Index Albumin TSH Urine WBC (Auto) Salicylates 02/11/17 02/11/17 02/11/17 12:25 17:03 23:59 WBC RBC Hgb Hct MCV MCH RDW Plt Count Lymph % (Auto) [place] % (Auto) Eos % (Auto) Seg Neutrophils % Seg Neuts % (Manual) Lymphocytes % (Manual) Seg Neutrophils # Seg Neutrophils # Man Lymphocytes # (Manual) APTT POC ABG pH ABG pH POC ABG pCO2 POC ABG pO2 ABG pO2 ABG HCO3 ABG Base Excess ABG Hemoglobin VBG pH Oxyhemoglobin Sodium Potassium Chloride Carbon Dioxide BUN Creatinine Glucose POC Glucose 275 H 172 H 215 H Lactic Acid Calcium AST Alkaline Phosphatase CK-MB (CK-2) CK-MB (CK-2) Rel Index Albumin TSH Urine WBC (Auto) Salicylates 02/12/17 02/12/17 02/12/17 05:39 11:33 17:55 WBC RBC Hgb Hct MCV MCH RDW Plt Count Lymph % (Auto) [place] % (Auto) Eos % (Auto) Seg Neutrophils % Seg Neuts % (Manual) Lymphocytes % (Manual) Seg Neutrophils # Seg Neutrophils # Man Lymphocytes # (Manual) APTT POC ABG pH ABG pH POC ABG pCO2 POC ABG pO2 ABG pO2 ABG HCO3 ABG Base Excess ABG Hemoglobin VBG pH Oxyhemoglobin Sodium Potassium Chloride Carbon Dioxide BUN Creatinine Glucose POC Glucose 261 H 217 H 172 H Lactic Acid Calcium AST Alkaline Phosphatase CK-MB (CK-2) CK-MB (CK-2) Rel Index Albumin TSH Urine WBC (Auto) Salicylates 02/13/17 02/13/17 02/13/17 00:25 06:46 11:26 WBC RBC Hgb Hct MCV MCH RDW Plt Count Lymph % (Auto) [place] % (Auto) Eos % (Auto) Seg Neutrophils % Seg Neuts % (Manual) Lymphocytes % (Manual) Seg Neutrophils # Seg Neutrophils # Man Lymphocytes # (Manual) APTT POC ABG pH ABG pH POC ABG pCO2 POC ABG pO2 ABG pO2 ABG HCO3 ABG Base Excess ABG Hemoglobin VBG pH Oxyhemoglobin Sodium Potassium Chloride Carbon Dioxide BUN Creatinine Glucose POC Glucose 207 H 219 H 231 H Lactic Acid Calcium AST Alkaline Phosphatase CK-MB (CK-2) CK-MB (CK-2) Rel Index Albumin TSH Urine WBC (Auto) Salicylates 02/13/17 02/13/17 02/14/17 17:12 23:44 05:44 WBC RBC Hgb Hct MCV MCH RDW Plt Count Lymph % (Auto) [place] % (Auto) Eos % (Auto) Seg Neutrophils % Seg Neuts % (Manual) Lymphocytes % (Manual) Seg Neutrophils # Seg Neutrophils # Man Lymphocytes # (Manual) APTT POC ABG pH ABG pH POC ABG pCO2 POC ABG pO2 ABG pO2 ABG HCO3 ABG Base Excess ABG Hemoglobin VBG pH Oxyhemoglobin Sodium Potassium Chloride Carbon Dioxide BUN Creatinine Glucose POC Glucose 190 H 256 H 184 H Lactic Acid Calcium AST Alkaline Phosphatase CK-MB (CK-2) CK-MB (CK-2) Rel Index Albumin TSH Urine WBC (Auto) Salicylates 02/14/17 02/14/17 02/14/17 12:21 17:57 23:18 WBC RBC Hgb Hct MCV MCH RDW Plt Count Lymph % (Auto) [place] % (Auto) Eos % (Auto) Seg Neutrophils % Seg Neuts % (Manual) Lymphocytes % (Manual) Seg Neutrophils # Seg Neutrophils # Man Lymphocytes # (Manual) APTT POC ABG pH ABG pH POC ABG pCO2 POC ABG pO2 ABG pO2 ABG HCO3 ABG Base Excess ABG Hemoglobin VBG pH Oxyhemoglobin Sodium Potassium Chloride Carbon Dioxide BUN Creatinine Glucose POC Glucose 233 H 155 H 165 H Lactic Acid Calcium AST Alkaline Phosphatase CK-MB (CK-2) CK-MB (CK-2) Rel Index Albumin TSH Urine WBC (Auto) Salicylates 02/15/17 02/15/17 02/15/17 05:33 11:45 17:20 WBC RBC Hgb Hct MCV MCH RDW Plt Count Lymph % (Auto) [place] % (Auto) Eos % (Auto) Seg Neutrophils % Seg Neuts % (Manual) Lymphocytes % (Manual) Seg Neutrophils # Seg Neutrophils # Man Lymphocytes # (Manual) APTT POC ABG pH ABG pH POC ABG pCO2 POC ABG pO2 ABG pO2 ABG HCO3 ABG Base Excess ABG Hemoglobin VBG pH Oxyhemoglobin Sodium Potassium Chloride Carbon Dioxide BUN Creatinine Glucose POC Glucose 239 H 130 H 189 H Lactic Acid Calcium AST Alkaline Phosphatase CK-MB (CK-2) CK-MB (CK-2) Rel Index Albumin TSH Urine WBC (Auto) Salicylates 02/16/17 02/16/17 02/16/17 00:14 05:09 12:31 WBC RBC Hgb Hct MCV MCH RDW Plt Count Lymph % (Auto) [place] % (Auto) Eos % (Auto) Seg Neutrophils % Seg Neuts % (Manual) Lymphocytes % (Manual) Seg Neutrophils # Seg Neutrophils # Man Lymphocytes # (Manual) APTT POC ABG pH ABG pH POC ABG pCO2 POC ABG pO2 ABG pO2 ABG HCO3 ABG Base Excess ABG Hemoglobin VBG pH Oxyhemoglobin Sodium Potassium Chloride Carbon Dioxide BUN Creatinine Glucose POC Glucose 197 H 226 H 178 H Lactic Acid Calcium AST Alkaline Phosphatase CK-MB (CK-2) CK-MB (CK-2) Rel Index Albumin TSH Urine WBC (Auto) Salicylates 02/16/17 02/16/17 02/17/17 16:35 23:49 05:37 WBC RBC Hgb Hct MCV MCH RDW Plt Count Lymph % (Auto) [place] % (Auto) Eos % (Auto) Seg Neutrophils % Seg Neuts % (Manual) Lymphocytes % (Manual) Seg Neutrophils # Seg Neutrophils # Man Lymphocytes # (Manual) APTT POC ABG pH ABG pH POC ABG pCO2 POC ABG pO2 ABG pO2 ABG HCO3 ABG Base Excess ABG Hemoglobin VBG pH Oxyhemoglobin Sodium Potassium Chloride Carbon Dioxide BUN Creatinine Glucose POC Glucose 174 H 62 L 153 H Lactic Acid Calcium AST Alkaline Phosphatase CK-MB (CK-2) CK-MB (CK-2) Rel Index Albumin TSH Urine WBC (Auto) Salicylates 02/17/17 02/17/17 02/17/17 11:39 17:02 22:24 WBC RBC Hgb Hct MCV MCH RDW Plt Count Lymph % (Auto) [place] % (Auto) Eos % (Auto) Seg Neutrophils % Seg Neuts % (Manual) Lymphocytes % (Manual) Seg Neutrophils # Seg Neutrophils # Man Lymphocytes # (Manual) APTT POC ABG pH ABG pH POC ABG pCO2 POC ABG pO2 ABG pO2 ABG HCO3 ABG Base Excess ABG Hemoglobin VBG pH Oxyhemoglobin Sodium Potassium Chloride Carbon Dioxide BUN Creatinine Glucose POC Glucose 231 H 112 H 116 H Lactic Acid Calcium AST Alkaline Phosphatase CK-MB (CK-2) CK-MB (CK-2) Rel Index Albumin TSH Urine WBC (Auto) Salicylates 02/18/17 02/19/17 02/19/17 15:34 05:09 07:57 WBC RBC Hgb Hct MCV MCH RDW Plt Count Lymph % (Auto) [place] % (Auto) Eos % (Auto) Seg Neutrophils % Seg Neuts % (Manual) Lymphocytes % (Manual) Seg Neutrophils # Seg Neutrophils # Man Lymphocytes # (Manual) APTT POC ABG pH ABG pH POC ABG pCO2 POC ABG pO2 ABG pO2 ABG HCO3 ABG Base Excess ABG Hemoglobin VBG pH Oxyhemoglobin Sodium Potassium Chloride Carbon Dioxide BUN Creatinine Glucose POC Glucose 215 H 218 H 283 H Lactic Acid Calcium AST Alkaline Phosphatase CK-MB (CK-2) CK-MB (CK-2) Rel Index Albumin TSH Urine WBC (Auto) Salicylates 02/19/17 02/19/17 02/20/17 14:49 22:10 05:10 WBC RBC Hgb Hct MCV MCH RDW Plt Count Lymph % (Auto) [place] % (Auto) Eos % (Auto) Seg Neutrophils % Seg Neuts % (Manual) Lymphocytes % (Manual) Seg Neutrophils # Seg Neutrophils # Man Lymphocytes # (Manual) APTT POC ABG pH ABG pH POC ABG pCO2 POC ABG pO2 ABG pO2 ABG HCO3 ABG Base Excess ABG Hemoglobin VBG pH Oxyhemoglobin Sodium Potassium Chloride Carbon Dioxide BUN Creatinine Glucose POC Glucose 290 H 169 H 209 H Lactic Acid Calcium AST Alkaline Phosphatase CK-MB (CK-2) CK-MB (CK-2) Rel Index Albumin TSH Urine WBC (Auto) Salicylates 02/20/17 02/20/17 02/21/17 15:05 21:52 02:00 WBC RBC Hgb Hct MCV MCH RDW Plt Count Lymph % (Auto) [place] % (Auto) Eos % (Auto) Seg Neutrophils % Seg Neuts % (Manual) Lymphocytes % (Manual) Seg Neutrophils # Seg Neutrophils # Man Lymphocytes # (Manual) APTT POC ABG pH ABG pH POC ABG pCO2 POC ABG pO2 ABG pO2 ABG HCO3 ABG Base Excess ABG Hemoglobin VBG pH Oxyhemoglobin Sodium Potassium Chloride Carbon Dioxide BUN Creatinine Glucose POC Glucose 172 H 209 H 216 H Lactic Acid Calcium AST Alkaline Phosphatase CK-MB (CK-2) CK-MB (CK-2) Rel Index Albumin TSH Urine WBC (Auto) Salicylates 02/21/17 02/21/17 02/21/17 04:54 14:43 17:47 WBC RBC Hgb Hct MCV MCH RDW Plt Count Lymph % (Auto) [place] % (Auto) Eos % (Auto) Seg Neutrophils % Seg Neuts % (Manual) Lymphocytes % (Manual) Seg Neutrophils # Seg Neutrophils # Man Lymphocytes # (Manual) APTT POC ABG pH ABG pH POC ABG pCO2 POC ABG pO2 ABG pO2 ABG HCO3 ABG Base Excess ABG Hemoglobin VBG pH Oxyhemoglobin Sodium Potassium Chloride Carbon Dioxide BUN Creatinine Glucose POC Glucose 227 H 290 H 220 H Lactic Acid Calcium AST Alkaline Phosphatase CK-MB (CK-2) CK-MB (CK-2) Rel Index Albumin TSH Urine WBC (Auto) Salicylates 02/21/17 02/22/17 02/22/17 22:02 04:52 15:25 WBC RBC Hgb Hct MCV MCH RDW Plt Count Lymph % (Auto) [place] % (Auto) Eos % (Auto) Seg Neutrophils % Seg Neuts % (Manual) Lymphocytes % (Manual) Seg Neutrophils # Seg Neutrophils # Man Lymphocytes # (Manual) APTT POC ABG pH ABG pH POC ABG pCO2 POC ABG pO2 ABG pO2 ABG HCO3 ABG Base Excess ABG Hemoglobin VBG pH Oxyhemoglobin Sodium Potassium Chloride Carbon Dioxide BUN Creatinine Glucose POC Glucose 246 H 212 H 236 H Lactic Acid Calcium AST Alkaline Phosphatase CK-MB (CK-2) CK-MB (CK-2) Rel Index Albumin TSH Urine WBC (Auto) Salicylates 02/22/17 02/23/17 02/23/17 21:33 06:04 10:00 WBC RBC Hgb Hct MCV MCH RDW Plt Count Lymph % (Auto) [place] % (Auto) Eos % (Auto) Seg Neutrophils % Seg Neuts % (Manual) Lymphocytes % (Manual) Seg Neutrophils # Seg Neutrophils # Man Lymphocytes # (Manual) APTT POC ABG pH ABG pH POC ABG pCO2 POC ABG pO2 ABG pO2 ABG HCO3 ABG Base Excess ABG Hemoglobin VBG pH Oxyhemoglobin Sodium Potassium Chloride Carbon Dioxide BUN Creatinine Glucose POC Glucose 255 H 208 H 174 H Lactic Acid Calcium AST Alkaline Phosphatase CK-MB (CK-2) CK-MB (CK-2) Rel Index Albumin TSH Urine WBC (Auto) Salicylates 02/23/17 02/23/17 02/23/17 12:52 17:15 21:51 WBC RBC Hgb Hct MCV MCH RDW Plt Count Lymph % (Auto) [place] % (Auto) Eos % (Auto) Seg Neutrophils % Seg Neuts % (Manual) Lymphocytes % (Manual) Seg Neutrophils # Seg Neutrophils # Man Lymphocytes # (Manual) APTT POC ABG pH ABG pH POC ABG pCO2 POC ABG pO2 ABG pO2 ABG HCO3 ABG Base Excess ABG Hemoglobin VBG pH Oxyhemoglobin Sodium Potassium Chloride Carbon Dioxide BUN Creatinine Glucose POC Glucose 203 H 269 H 205 H Lactic Acid Calcium AST Alkaline Phosphatase CK-MB (CK-2) CK-MB (CK-2) Rel Index Albumin TSH Urine WBC (Auto) Salicylates 02/24/17 02/24/17 02/24/17 10:23 17:45 21:24 WBC RBC Hgb Hct MCV MCH RDW Plt Count Lymph % (Auto) [place] % (Auto) Eos % (Auto) Seg Neutrophils % Seg Neuts % (Manual) Lymphocytes % (Manual) Seg Neutrophils # Seg Neutrophils # Man Lymphocytes # (Manual) APTT POC ABG pH ABG pH POC ABG pCO2 POC ABG pO2 ABG pO2 ABG HCO3 ABG Base Excess ABG Hemoglobin VBG pH Oxyhemoglobin Sodium Potassium Chloride Carbon Dioxide BUN Creatinine Glucose POC Glucose 280 H 239 H 254 H Lactic Acid Calcium AST Alkaline Phosphatase CK-MB (CK-2) CK-MB (CK-2) Rel Index Albumin TSH Urine WBC (Auto) Salicylates 02/25/17 02/25/17 02/25/17 02:12 05:17 14:32 WBC RBC Hgb Hct MCV MCH RDW Plt Count Lymph % (Auto) [place] % (Auto) Eos % (Auto) Seg Neutrophils % Seg Neuts % (Manual) Lymphocytes % (Manual) Seg Neutrophils # Seg Neutrophils # Man Lymphocytes # (Manual) APTT POC ABG pH ABG pH POC ABG pCO2 POC ABG pO2 ABG pO2 ABG HCO3 ABG Base Excess ABG Hemoglobin VBG pH Oxyhemoglobin Sodium Potassium Chloride Carbon Dioxide BUN Creatinine Glucose POC Glucose 296 H 332 H 353 H Lactic Acid Calcium AST Alkaline Phosphatase CK-MB (CK-2) CK-MB (CK-2) Rel Index Albumin TSH Urine WBC (Auto) Salicylates 02/25/17 02/26/17 02/26/17 22:14 00:37 05:52 WBC RBC Hgb Hct MCV MCH RDW Plt Count Lymph % (Auto) [place] % (Auto) Eos % (Auto) Seg Neutrophils % Seg Neuts % (Manual) Lymphocytes % (Manual) Seg Neutrophils # Seg Neutrophils # Man Lymphocytes # (Manual) APTT POC ABG pH ABG pH POC ABG pCO2 POC ABG pO2 ABG pO2 ABG HCO3 ABG Base Excess ABG Hemoglobin VBG pH Oxyhemoglobin Sodium Potassium Chloride Carbon Dioxide BUN Creatinine Glucose POC Glucose 201 H 233 H 269 H Lactic Acid Calcium AST Alkaline Phosphatase CK-MB (CK-2) CK-MB (CK-2) Rel Index Albumin TSH Urine WBC (Auto) Salicylates
[2017-02-26] MEDS: NORMODYNE PO SCH ×3 (10:02→21:25)
[2017-02-26] MEDS: HEPARIN SUB-Q SCH ×3 (10:04→21:40)
[2017-02-26] MEDS: LEVEMIR (NF) SUB-Q SCH (12:19)
--- NOTE | 2017-02-26 12:30 | Progress Note ---
Assessment and Plan Hypoglycemic brain injury Persistent vegetative state Metabolic encephalopathy Hypoglycemia/hypothermia, resolved Acute respiratory failure mechanical ventilator greater than 96 hours UTI with klebsiella, treated ( Cx + on 01/28) hyponatremia, Hypothyroidism IDDM Hypertension low grade Fever, resolved - Cont supportive care and current medication. Monitor vitals, repeat cx on - no growth - increase dose of long acting insulin to 15 unit today - Patient is DNR- needs guardianship from the state to give consent for further management, as has no family to give consent. Brief History: 51 YO Male with CKD,HTN, DM presents to ED after found down and unresponsive by his neighbor, who subsequently called EMS. Upon arrival, patient found unresponsive on the floor with a serum glucose of 21, patient has a known history of alcohol abuse and delirium tremens. The patient was administered D5 approximate 500 mls during transport without change in mental status/level of consciousness. Pt seen and evaluated in ED was was found to be unable to protect his airway. Pt intubated and placed on vent support. Pt found to have evidence of hypothyroidism. He was started on Synthroid. He has since been in the ICU. creative services designer try to locate family, even spoke to the family who he lives with. They themselves were unaware of any family members. After ethics committee meeting on the patient. The decision was made to make him DO NOT RESUSCITATE and to transfer him to hospice. Given his very poor prognosis and poor likelihood of recovery. It was decided that was not his best interest to get trach and PEG. Therefore he'll be transferred to the hospice intubated. Now Awaiting on court ordered /state guardianship. Active meds: Generic Name Dose Route Start Last Admin Trade Name Eva PRN Reason Stop Dose Admin Acetaminophen 650 mg 01/14/17 17:29 02/20/17 01:30 Tylenol FEEDTUBE 650 mg Q6H PRN Administration Non Cardiac Pain Or Temp>101 Lipase/Protease/Amylase 1 each 01/14/17 14:33 Pancreashley Morales 10,500 Unit FEEDTUBE PRN PRN For Clogged Feeding Tube Dextrose 50 gm 01/31/17 23:13 02/17/17 00:10 D50w (25gm) Vial IV 50 gm PRN PRN Administration Hypoglycemia Famotidine 20 mg 01/17/17 10:00 02/25/17 09:35 Pepcid PO 20 mg BID PAOLO Administration Heparin Sodium (Porcine) 5,000 unit 01/10/17 22:00 02/25/17 09:34 Heparin SUB-Q 5,000 unit Q12HR PAOLO Administration Hydralazine HCl 10 mg 01/10/17 13:01 02/02/17 06:14 Apresoline IV 10 mg Q4HR PRN Administration Hypertension Hydrophilic Ointment 1 applic 01/09/17 10:13 Vaseline Lip Therapy TP Q2HR PRN Dry Lips Insulin Aspart 0 units 02/17/17 22:00 02/25/17 07:02 Novolog SUB-Q 6 units Q8HR PAOLO Administration Protocol Insulin Detemir 12 units 02/25/17 10:00 02/25/17 11:44 Levemir SUB-Q 12 units DAILY PAOLO Administration Labetalol HCl 200 mg 01/09/17 13:00 02/25/17 09:34 Normodyne PO 200 mg BID PAOLO Administration Levothyroxine Sodium 100 mcg 01/15/17 06:00 02/25/17 07:02 Synthroid PO 100 mcg DAILY@0600 PAOLO Administration Loperamide HCl 2 mg 02/04/17 10:57 02/16/17 06:33 Imodium A-D PO 2 mg Q2H PRN Administration Diarrhea Multi-Ingred Cream/Lotion/Oil/Oint 1 applic 01/09/17 10:13 Artificial Tears Ophth Oint OU Q4HR PRN Dry Eye(s) Simple Syrup 15 ml 01/14/17 14:33 01/31/17 23:19 Simple Syrup FEEDTUBE 15 ml PRN PRN Administration Hypoglycemia Simple Syrup 30 ml 01/14/17 14:33 Simple Syrup FEEDTUBE PRN PRN Hypoglycemia Sodium Bicarbonate 325 mg 01/14/17 14:33 Sodium Bicarbonate FEEDTUBE PRN PRN For Clogged Feeding Tube Hospitalist Physical - Physical exam Narrative exam: General: comatose HEENT: Moist mucous membranes, , no lymphadenopathy Neck: supple Cardiac: S1-S2 heard Lungs: mechnical ventilated breath sounds Abdomen: soft , nontender, nondistended, bowel sounds positive Extremities: no edema clubbing or cyanosis Skin: no rash or lesions Neurologic: opens eyes, no response to deep painful stimuli, does not follow commend Subjective Date of service: 02/26/17 Principal diagnosis: Acute respiratory failure,encephalopathy Interval history: patient remains comatose, no movement of extremities afebrile o/n, no clinical change Objective - Constitutional Vitals: Vital Signs - 12hr 02/26/17 02/26/17 02/26/17 00:30 01:00 02:00 Temperature 97.3 F L Pulse Rate 62 Respiratory 17 12 Rate Blood Pressure 140/84 O2 Sat by Pulse 99 100 Oximetry 02/26/17 02/26/17 02/26/17 04:00 05:19 05:56 Temperature 98.3 F Pulse Rate 63 65 Respiratory 13 Rate Blood Pressure 147/84 138/89 O2 Sat by Pulse 100 99 Oximetry 02/26/17 02/26/17 02/26/17 06:00 07:49 07:57 Temperature 98.3 F Pulse Rate 65 69 Respiratory 16 Rate Blood Pressure 132/86 132/86 O2 Sat by Pulse 100 99 Oximetry 02/26/17 02/26/17 02/26/17 09:57 10:02 10:04 Temperature Pulse Rate 71 Respiratory Rate Blood Pressure 148/90 148/90 O2 Sat by Pulse Oximetry 02/26/17 11:47 Temperature 97.8 F Pulse Rate Respiratory Rate Blood Pressure O2 Sat by Pulse Oximetry - Labs CBC & Chem 7: 02/09/17 07:24 02/09/17 07:24 Labs: Abnormal lab results 02/25/17 02/25/17 02/26/17 Range/Units 14:32 22:14 00:37 POC Glucose 353 H 201 H 233 H (70-105) 02/26/17 02/26/17 Range/Units 05:52 11:48 POC Glucose 269 H 333 H (70-105)
[2017-02-27] MEDS: NOVOLOG SUB-Q SCH ×3 (06:00→22:17)
[2017-02-27] MEDS: SYNTHROID PO SCH (06:00)
--- NOTE | 2017-02-27 08:55 | Progress Note ---
Assessment and Plan Acute respiratory failure,prolonged vent/ETT support Fever. None x 4 days Hypoglycemia episode-mild hyperglicemic,improving Metabolic encephalopathy. 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 Resolved Recommendations Currently the patient is DO NOT RESUSCITATE. Waiting for final administrative decision, from court order regarding current support versus termination of care Continue PSV/CPAP trials during the day. If no decision legally, consider again , trach to fully wean of vent support,manage as prolonged vegetative state on trach/t tube. complex patient. Critical care time with a 31 minutes of [id number] evaluation and coordination of care Subjective Date of service: 02/27/17 Principal diagnosis: Acute respiratory failure,encephalopathy Interval history: Intubated. Non responsive unless stimulated. vent on A/C mode Objective Vital Signs - 12hr 02/26/17 02/27/17 02/27/17 22:00 00:00 00:05 Temperature Pulse Rate 70 70 Respiratory 14 15 Rate Respiratory 17 Rate [ Generalized] Blood Pressure 146/93 131/87 O2 Sat by Pulse 100 100 96 Oximetry 02/27/17 02/27/17 02/27/17 02:00 03:47 04:00 Temperature 97.1 F L Pulse Rate 72 69 Respiratory 14 16 Rate Respiratory Rate [ Generalized] Blood Pressure 144/94 151/88 O2 Sat by Pulse 100 100 Oximetry 02/27/17 02/27/17 07:49 08:42 Temperature 99.4 F Pulse Rate 68 Respiratory Rate Respiratory Rate [ Generalized] Blood Pressure 124/77 O2 Sat by Pulse 100 Oximetry Constitutional: no acute distress, alert, other (orally intubated, on vent support) Eyes: non-icteric ENT: oropharynx moist Neck: supple, no JVD Effort: normal Ascultation: Bilateral: clear, diminished breath sounds Cardiovascular: regular rate and rhythm Gastrointestinal: normoactive bowel sounds, soft, non-tender, non-distended Integumentary: normal Extremities: no cyanosis, no edema, pink and warm Neurologic: other (awake spontaneously, not not following any commands. Fixed stare.) Psychiatric: other (unable to obtain) CBC and BMP: 02/09/17 07:24 02/09/17 07:24 ABG, PT/INR, D-dimer: ABG POC ABG pH 7.442 (7.35-7.45) 01/31/17 18:55 ABG pH 7.420 pH Units (7.350-7.450) 01/17/17 04:35 POC ABG pCO2 32.8 (35-45) L 01/31/17 18:55 ABG pCO2 34.5 mm Hg 01/17/17 04:35 POC ABG pO2 82 (80-105) 01/31/17 18:55 ABG pO2 160.3 mm Hg (80.0-90.0) H 01/17/17 04:35 POC ABG HCO3 22.4 01/31/17 18:55 POC ABG Total CO2 23 01/31/17 18:55 POC ABG O2 Sat 97 01/31/17 18:55 ABG O2 Saturation 99.0 % (95.0-99.0) 01/17/17 04:35 PT/INR, D-dimer PT 14.1 Sec. (12.2-14.9) 01/17/17 04:10 INR 1.04 (0.87-1.13) 01/17/17 04:10 Abnormal lab findings: Abnormal Labs 01/09/17 01/09/17 01/09/17 10:16 10:16 10:16 WBC RBC Hgb 9.7 L Hct 28.4 L MCV 76 L MCH 26 L RDW 17.2 H Plt Count 448 H Lymph % (Auto) [place] % (Auto) Eos % (Auto) Seg Neutrophils % 79.5 H Seg Neuts % (Manual) Lymphocytes % (Manual) Seg Neutrophils # Seg Neutrophils # Man Lymphocytes # (Manual) APTT 39.6 H POC ABG pH ABG pH POC ABG pCO2 POC ABG pO2 ABG pO2 ABG HCO3 ABG Base Excess ABG Hemoglobin VBG pH Oxyhemoglobin Sodium 132 L Potassium Chloride 96.7 L Carbon Dioxide 21 L BUN 34 H Creatinine Glucose POC Glucose Lactic Acid Calcium 8.3 L AST Alkaline Phosphatase 151 H CK-MB (CK-2) 7.1 H CK-MB (CK-2) Rel Index 5.2 H Albumin 3.3 L TSH Urine WBC (Auto) Salicylates 01/09/17 01/09/17 01/09/17 10:16 10:16 10:16 WBC RBC Hgb Hct MCV MCH RDW Plt Count Lymph % (Auto) [place] % (Auto) Eos % (Auto) Seg Neutrophils % Seg Neuts % (Manual) Lymphocytes % (Manual) Seg Neutrophils # Seg Neutrophils # Man Lymphocytes # (Manual) APTT POC ABG pH ABG pH POC ABG pCO2 POC ABG pO2 ABG pO2 ABG HCO3 ABG Base Excess ABG Hemoglobin VBG pH 7.284 L Oxyhemoglobin Sodium Potassium Chloride Carbon Dioxide BUN Creatinine Glucose POC Glucose Lactic Acid Calcium AST Alkaline Phosphatase CK-MB (CK-2) CK-MB (CK-2) Rel Index Albumin TSH 52.800 H Urine WBC (Auto) Salicylates < 0.3 L 01/09/17 01/09/17 01/09/17 10:23 11:14 12:49 WBC RBC Hgb Hct MCV MCH RDW Plt Count Lymph % (Auto) [place] % (Auto) Eos % (Auto) Seg Neutrophils % Seg Neuts % (Manual) Lymphocytes % (Manual) Seg Neutrophils # Seg Neutrophils # Man Lymphocytes # (Manual) APTT POC ABG pH ABG pH POC ABG pCO2 POC ABG pO2 643 H ABG pO2 ABG HCO3 ABG Base Excess ABG Hemoglobin VBG pH Oxyhemoglobin Sodium Potassium Chloride Carbon Dioxide BUN Creatinine Glucose POC Glucose < 40 L Lactic Acid Calcium AST Alkaline Phosphatase CK-MB (CK-2) CK-MB (CK-2) Rel Index Albumin TSH Urine WBC (Auto) 61.0 H Salicylates 01/09/17 01/09/17 01/09/17 13:13 14:21 15:09 WBC RBC Hgb Hct MCV MCH RDW Plt Count Lymph % (Auto) [place] % (Auto) Eos % (Auto) Seg Neutrophils % Seg Neuts % (Manual) Lymphocytes % (Manual) Seg Neutrophils # Seg Neutrophils # Man Lymphocytes # (Manual) APTT POC ABG pH ABG pH POC ABG pCO2 POC ABG pO2 ABG pO2 ABG HCO3 ABG Base Excess ABG Hemoglobin VBG pH Oxyhemoglobin Sodium Potassium Chloride Carbon Dioxide BUN Creatinine Glucose POC Glucose 128 H 65 L 120 H Lactic Acid Calcium AST Alkaline Phosphatase CK-MB (CK-2) CK-MB (CK-2) Rel Index Albumin TSH Urine WBC (Auto) Salicylates 01/09/17 01/09/17 01/10/17 16:28 17:14 04:30 WBC 24.1 H RBC 3.38 L Hgb 8.5 L Hct 26.0 L MCV 77 L MCH 25 L RDW 17.9 H Plt Count 474 H Lymph % (Auto) [place] % (Auto) Eos % (Auto) Seg Neutrophils % Seg Neuts % (Manual) 88.0 H Lymphocytes % (Manual) 4.0 L Seg Neutrophils # Seg Neutrophils # Man 21.2 H Lymphocytes # (Manual) 1.0 L APTT POC ABG pH ABG pH POC ABG pCO2 POC ABG pO2 ABG pO2 ABG HCO3 ABG Base Excess ABG Hemoglobin VBG pH Oxyhemoglobin Sodium Potassium Chloride Carbon Dioxide BUN Creatinine Glucose POC Glucose 44 L 112 H Lactic Acid Calcium AST Alkaline Phosphatase CK-MB (CK-2) CK-MB (CK-2) Rel Index Albumin TSH Urine WBC (Auto) Salicylates 01/10/17 01/10/17 01/10/17 04:30 05:41 05:45 WBC RBC Hgb Hct MCV MCH RDW Plt Count Lymph % (Auto) [place] % (Auto) Eos % (Auto) Seg Neutrophils % Seg Neuts % (Manual) Lymphocytes % (Manual) Seg Neutrophils # Seg Neutrophils # Man Lymphocytes # (Manual) APTT POC ABG pH ABG pH POC ABG pCO2 26.6 L POC ABG pO2 207 H ABG pO2 ABG HCO3 ABG Base Excess ABG Hemoglobin VBG pH Oxyhemoglobin Sodium Potassium Chloride Carbon Dioxide 17 L BUN 27 H Creatinine Glucose POC Glucose 68 L Lactic Acid Calcium 7.5 L AST Alkaline Phosphatase CK-MB (CK-2) CK-MB (CK-2) Rel Index Albumin TSH Urine WBC (Auto) Salicylates 01/10/17 01/10/17 01/10/17 07:47 10:50 13:41 WBC RBC Hgb Hct MCV MCH RDW Plt Count Lymph % (Auto) [place] % (Auto) Eos % (Auto) Seg Neutrophils % Seg Neuts % (Manual) Lymphocytes % (Manual) Seg Neutrophils # Seg Neutrophils # Man Lymphocytes # (Manual) APTT POC ABG pH ABG pH POC ABG pCO2 POC ABG pO2 ABG pO2 ABG HCO3 ABG Base Excess ABG Hemoglobin VBG pH Oxyhemoglobin Sodium Potassium Chloride Carbon Dioxide BUN Creatinine Glucose POC Glucose 148 H 165 H 114 H Lactic Acid Calcium AST Alkaline Phosphatase CK-MB (CK-2) CK-MB (CK-2) Rel Index Albumin TSH Urine WBC (Auto) Salicylates 01/10/17 01/10/17 01/10/17 20:20 21:39 23:24 WBC RBC Hgb Hct MCV MCH RDW Plt Count Lymph % (Auto) [place] % (Auto) Eos % (Auto) Seg Neutrophils % Seg Neuts % (Manual) Lymphocytes % (Manual) Seg Neutrophils # Seg Neutrophils # Man Lymphocytes # (Manual) APTT POC ABG pH ABG pH POC ABG pCO2 POC ABG pO2 ABG pO2 ABG HCO3 ABG Base Excess ABG Hemoglobin VBG pH Oxyhemoglobin Sodium Potassium Chloride Carbon Dioxide BUN Creatinine Glucose POC Glucose 150 H 175 H 155 H Lactic Acid Calcium AST Alkaline Phosphatase CK-MB (CK-2) CK-MB (CK-2) Rel Index Albumin TSH Urine WBC (Auto) Salicylates 01/11/17 01/11/17 01/11/17 00:19 04:06 05:20 WBC 15.2 H RBC 3.40 L Hgb 8.9 L Hct 26.3 L MCV 78 L MCH 26 L RDW 18.6 H Plt Count 462 H Lymph % (Auto) 13.2 L [place] % (Auto) Eos % (Auto) Seg Neutrophils % 80.8 H Seg Neuts % (Manual) Lymphocytes % (Manual) Seg Neutrophils # 12.3 H Seg Neutrophils # Man Lymphocytes # (Manual) APTT POC ABG pH 7.463 H ABG pH POC ABG pCO2 26.2 L POC ABG pO2 185 H ABG pO2 ABG HCO3 ABG Base Excess ABG Hemoglobin VBG pH Oxyhemoglobin Sodium Potassium Chloride Carbon Dioxide BUN Creatinine Glucose POC Glucose 163 H Lactic Acid Calcium AST Alkaline Phosphatase CK-MB (CK-2) CK-MB (CK-2) Rel Index Albumin TSH Urine WBC (Auto) Salicylates 01/11/17 01/11/17 01/11/17 05:20 06:21 07:57 WBC RBC Hgb Hct MCV MCH RDW Plt Count Lymph % (Auto) [place] % (Auto) Eos % (Auto) Seg Neutrophils % Seg Neuts % (Manual) Lymphocytes % (Manual) Seg Neutrophils # Seg Neutrophils # Man Lymphocytes # (Manual) APTT POC ABG pH ABG pH POC ABG pCO2 POC ABG pO2 ABG pO2 ABG HCO3 ABG Base Excess ABG Hemoglobin VBG pH Oxyhemoglobin Sodium Potassium 3.4 L Chloride 111.5 H Carbon Dioxide 17 L BUN Creatinine Glucose 147 H POC Glucose 139 H 188 H Lactic Acid Calcium 8.0 L AST Alkaline Phosphatase CK-MB (CK-2) CK-MB (CK-2) Rel Index Albumin TSH Urine WBC (Auto) Salicylates 01/11/17 01/11/17 01/11/17 11:46 16:50 23:15 WBC RBC Hgb Hct MCV MCH RDW Plt Count Lymph % (Auto) [place] % (Auto) Eos % (Auto) Seg Neutrophils % Seg Neuts % (Manual) Lymphocytes % (Manual) Seg Neutrophils # Seg Neutrophils # Man Lymphocytes # (Manual) APTT POC ABG pH ABG pH POC ABG pCO2 POC ABG pO2 ABG pO2 ABG HCO3 ABG Base Excess ABG Hemoglobin VBG pH Oxyhemoglobin Sodium Potassium Chloride Carbon Dioxide BUN Creatinine Glucose POC Glucose 199 H 235 H 155 H Lactic Acid Calcium AST Alkaline Phosphatase CK-MB (CK-2) CK-MB (CK-2) Rel Index Albumin TSH Urine WBC (Auto) Salicylates 01/12/17 01/12/17 01/12/17 05:02 06:56 14:50 WBC RBC Hgb Hct MCV MCH RDW Plt Count Lymph % (Auto) [place] % (Auto) Eos % (Auto) Seg Neutrophils % Seg Neuts % (Manual) Lymphocytes % (Manual) Seg Neutrophils # Seg Neutrophils # Man Lymphocytes # (Manual) APTT POC ABG pH ABG pH POC ABG pCO2 28.0 L POC ABG pO2 178 H ABG pO2 ABG HCO3 ABG Base Excess ABG Hemoglobin VBG pH Oxyhemoglobin Sodium Potassium Chloride Carbon Dioxide BUN Creatinine Glucose POC Glucose 119 H 164 H Lactic Acid Calcium AST Alkaline Phosphatase CK-MB (CK-2) CK-MB (CK-2) Rel Index Albumin TSH Urine WBC (Auto) Salicylates 01/13/17 01/13/17 01/13/17 03:37 03:37 04:26 WBC RBC 3.61 L Hgb 9.3 L Hct 28.0 L MCV 78 L MCH 26 L RDW 18.2 H Plt Count Lymph % (Auto) [place] % (Auto) Eos % (Auto) Seg Neutrophils % Seg Neuts % (Manual) Lymphocytes % (Manual) Seg Neutrophils # Seg Neutrophils # Man Lymphocytes # (Manual) APTT POC ABG pH 7.485 H ABG pH POC ABG pCO2 25.4 L POC ABG pO2 73 L ABG pO2 ABG HCO3 ABG Base Excess ABG Hemoglobin VBG pH Oxyhemoglobin Sodium Potassium Chloride 112.4 H Carbon Dioxide 19 L BUN Creatinine Glucose 118 H POC Glucose Lactic Acid Calcium 8.0 L AST Alkaline Phosphatase CK-MB (CK-2) CK-MB (CK-2) Rel Index Albumin TSH Urine WBC (Auto) Salicylates 01/13/17 01/13/17 01/13/17 06:15 11:50 17:31 WBC RBC Hgb Hct MCV MCH RDW Plt Count Lymph % (Auto) [place] % (Auto) Eos % (Auto) Seg Neutrophils % Seg Neuts % (Manual) Lymphocytes % (Manual) Seg Neutrophils # Seg Neutrophils # Man Lymphocytes # (Manual) APTT POC ABG pH ABG pH POC ABG pCO2 POC ABG pO2 ABG pO2 ABG HCO3 ABG Base Excess ABG Hemoglobin VBG pH Oxyhemoglobin Sodium Potassium Chloride Carbon Dioxide BUN Creatinine Glucose POC Glucose 116 H 171 H 203 H Lactic Acid Calcium AST Alkaline Phosphatase CK-MB (CK-2) CK-MB (CK-2) Rel Index Albumin TSH Urine WBC (Auto) Salicylates 01/14/17 01/14/17 01/14/17 00:02 04:50 04:50 WBC RBC 3.32 L Hgb 8.5 L Hct 26.1 L MCV 79 L MCH 26 L RDW 18.2 H Plt Count Lymph % (Auto) [place] % (Auto) 9.0 H Eos % (Auto) Seg Neutrophils % Seg Neuts % (Manual) Lymphocytes % (Manual) Seg Neutrophils # Seg Neutrophils # Man Lymphocytes # (Manual) APTT POC ABG pH ABG pH POC ABG pCO2 POC ABG pO2 ABG pO2 ABG HCO3 ABG Base Excess ABG Hemoglobin VBG pH Oxyhemoglobin Sodium Potassium Chloride 112.5 H Carbon Dioxide BUN Creatinine Glucose 149 H POC Glucose 157 H Lactic Acid Calcium 8.1 L AST Alkaline Phosphatase CK-MB (CK-2) CK-MB (CK-2) Rel Index Albumin TSH Urine WBC (Auto) Salicylates 01/14/17 01/14/17 01/14/17 05:10 11:27 14:07 WBC RBC Hgb Hct MCV MCH RDW Plt Count Lymph % (Auto) [place] % (Auto) Eos % (Auto) Seg Neutrophils % Seg Neuts % (Manual) Lymphocytes % (Manual) Seg Neutrophils # Seg Neutrophils # Man Lymphocytes # (Manual) APTT POC ABG pH ABG pH POC ABG pCO2 POC ABG pO2 ABG pO2 ABG HCO3 ABG Base Excess ABG Hemoglobin VBG pH Oxyhemoglobin Sodium Potassium Chloride Carbon Dioxide BUN Creatinine Glucose POC Glucose 176 H 147 H Lactic Acid Calcium AST Alkaline Phosphatase CK-MB (CK-2) CK-MB (CK-2) Rel Index Albumin TSH Urine WBC (Auto) 53.0 H Salicylates 01/14/17 01/15/17 01/15/17 16:52 00:04 05:26 WBC RBC Hgb Hct MCV MCH RDW Plt Count Lymph % (Auto) [place] % (Auto) Eos % (Auto) Seg Neutrophils % Seg Neuts % (Manual) Lymphocytes % (Manual) Seg Neutrophils # Seg Neutrophils # Man Lymphocytes # (Manual) APTT POC ABG pH ABG pH POC ABG pCO2 POC ABG pO2 ABG pO2 ABG HCO3 ABG Base Excess ABG Hemoglobin VBG pH Oxyhemoglobin Sodium Potassium Chloride Carbon Dioxide BUN Creatinine Glucose POC Glucose 131 H 193 H 215 H Lactic Acid Calcium AST Alkaline Phosphatase CK-MB (CK-2) CK-MB (CK-2) Rel Index Albumin TSH Urine WBC (Auto) Salicylates 01/15/17 01/15/17 01/15/17 11:49 17:47 21:33 WBC RBC Hgb Hct MCV MCH RDW Plt Count Lymph % (Auto) [place] % (Auto) Eos % (Auto) Seg Neutrophils % Seg Neuts % (Manual) Lymphocytes % (Manual) Seg Neutrophils # Seg Neutrophils # Man Lymphocytes # (Manual) APTT POC ABG pH ABG pH POC ABG pCO2 POC ABG pO2 ABG pO2 ABG HCO3 ABG Base Excess ABG Hemoglobin VBG pH Oxyhemoglobin Sodium Potassium Chloride Carbon Dioxide BUN Creatinine Glucose POC Glucose 121 H 211 H 275 H Lactic Acid Calcium AST Alkaline Phosphatase CK-MB (CK-2) CK-MB (CK-2) Rel Index Albumin TSH Urine WBC (Auto) Salicylates 01/16/17 01/16/17 01/16/17 04:30 05:28 13:45 WBC RBC Hgb Hct MCV MCH RDW Plt Count Lymph % (Auto) [place] % (Auto) Eos % (Auto) Seg Neutrophils % Seg Neuts % (Manual) Lymphocytes % (Manual) Seg Neutrophils # Seg Neutrophils # Man Lymphocytes # (Manual) APTT POC ABG pH ABG pH 7.457 H POC ABG pCO2 POC ABG pO2 ABG pO2 55.1 L ABG HCO3 19.4 L ABG Base Excess -4.0 L ABG Hemoglobin 6.8 L VBG pH Oxyhemoglobin 94.9 L Sodium Potassium Chloride Carbon Dioxide BUN Creatinine Glucose POC Glucose 271 H 236 H Lactic Acid Calcium AST Alkaline Phosphatase CK-MB (CK-2) CK-MB (CK-2) Rel Index Albumin TSH Urine WBC (Auto) Salicylates 01/16/17 01/17/17 01/17/17 21:39 04:10 04:10 WBC 4.4 L RBC 2.98 L Hgb 7.7 L Hct 23.3 L MCV 78 L MCH 26 L RDW 18.1 H Plt Count Lymph % (Auto) [place] % (Auto) Eos % (Auto) Seg Neutrophils % Seg Neuts % (Manual) Lymphocytes % (Manual) Seg Neutrophils # Seg Neutrophils # Man Lymphocytes # (Manual) APTT POC ABG pH ABG pH POC ABG pCO2 POC ABG pO2 ABG pO2 ABG HCO3 ABG Base Excess ABG Hemoglobin VBG pH Oxyhemoglobin Sodium Potassium 3.3 L Chloride 108.7 H Carbon Dioxide 20 L BUN 8 L Creatinine Glucose 202 H POC Glucose 258 H Lactic Acid Calcium 7.6 L AST Alkaline Phosphatase CK-MB (CK-2) CK-MB (CK-2) Rel Index Albumin TSH Urine WBC (Auto) Salicylates 01/17/17 01/17/17 01/17/17 04:35 12:23 16:01 WBC RBC Hgb Hct MCV MCH RDW Plt Count Lymph % (Auto) [place] % (Auto) Eos % (Auto) Seg Neutrophils % Seg Neuts % (Manual) Lymphocytes % (Manual) Seg Neutrophils # Seg Neutrophils # Man Lymphocytes # (Manual) APTT POC ABG pH ABG pH POC ABG pCO2 POC ABG pO2 ABG pO2 160.3 H ABG HCO3 ABG Base Excess -2.3 L ABG Hemoglobin 7.9 L VBG pH Oxyhemoglobin Sodium Potassium Chloride Carbon Dioxide BUN Creatinine Glucose POC Glucose 321 H 239 H Lactic Acid Calcium AST Alkaline Phosphatase CK-MB (CK-2) CK-MB (CK-2) Rel Index Albumin TSH Urine WBC (Auto) Salicylates 01/18/17 01/18/17 01/18/17 05:07 12:09 17:54 WBC RBC Hgb Hct MCV MCH RDW Plt Count Lymph % (Auto) [place] % (Auto) Eos % (Auto) Seg Neutrophils % Seg Neuts % (Manual) Lymphocytes % (Manual) Seg Neutrophils # Seg Neutrophils # Man Lymphocytes # (Manual) APTT POC ABG pH ABG pH POC ABG pCO2 POC ABG pO2 ABG pO2 ABG HCO3 ABG Base Excess ABG Hemoglobin VBG pH Oxyhemoglobin Sodium Potassium Chloride Carbon Dioxide BUN Creatinine Glucose POC Glucose 155 H 203 H 132 H Lactic Acid Calcium AST Alkaline Phosphatase CK-MB (CK-2) CK-MB (CK-2) Rel Index Albumin TSH Urine WBC (Auto) Salicylates 01/18/17 01/19/17 01/19/17 23:43 04:28 12:11 WBC RBC Hgb Hct MCV MCH RDW Plt Count Lymph % (Auto) [place] % (Auto) Eos % (Auto) Seg Neutrophils % Seg Neuts % (Manual) Lymphocytes % (Manual) Seg Neutrophils # Seg Neutrophils # Man Lymphocytes # (Manual) APTT POC ABG pH ABG pH POC ABG pCO2 POC ABG pO2 ABG pO2 ABG HCO3 ABG Base Excess ABG Hemoglobin VBG pH Oxyhemoglobin Sodium Potassium Chloride Carbon Dioxide BUN Creatinine Glucose POC Glucose 125 H 182 H 153 H Lactic Acid Calcium AST Alkaline Phosphatase CK-MB (CK-2) CK-MB (CK-2) Rel Index Albumin TSH Urine WBC (Auto) Salicylates 01/19/17 01/20/17 01/20/17 17:23 00:12 05:44 WBC RBC Hgb Hct MCV MCH RDW Plt Count Lymph % (Auto) [place] % (Auto) Eos % (Auto) Seg Neutrophils % Seg Neuts % (Manual) Lymphocytes % (Manual) Seg Neutrophils # Seg Neutrophils # Man Lymphocytes # (Manual) APTT POC ABG pH ABG pH POC ABG pCO2 POC ABG pO2 ABG pO2 ABG HCO3 ABG Base Excess ABG Hemoglobin VBG pH Oxyhemoglobin Sodium Potassium Chloride Carbon Dioxide BUN Creatinine Glucose POC Glucose 66 L 139 H 176 H Lactic Acid Calcium AST Alkaline Phosphatase CK-MB (CK-2) CK-MB (CK-2) Rel Index Albumin TSH Urine WBC (Auto) Salicylates 01/20/17 01/20/17 01/20/17 11:48 17:42 23:43 WBC RBC Hgb Hct MCV MCH RDW Plt Count Lymph % (Auto) [place] % (Auto) Eos % (Auto) Seg Neutrophils % Seg Neuts % (Manual) Lymphocytes % (Manual) Seg Neutrophils # Seg Neutrophils # Man Lymphocytes # (Manual) APTT POC ABG pH ABG pH POC ABG pCO2 POC ABG pO2 ABG pO2 ABG HCO3 ABG Base Excess ABG Hemoglobin VBG pH Oxyhemoglobin Sodium Potassium Chloride Carbon Dioxide BUN Creatinine Glucose POC Glucose 218 H 132 H 178 H Lactic Acid Calcium AST Alkaline Phosphatase CK-MB (CK-2) CK-MB (CK-2) Rel Index Albumin TSH Urine WBC (Auto) Salicylates 01/21/17 01/21/17 01/21/17 05:34 11:17 23:37 WBC RBC Hgb Hct MCV MCH RDW Plt Count Lymph % (Auto) [place] % (Auto) Eos % (Auto) Seg Neutrophils % Seg Neuts % (Manual) Lymphocytes % (Manual) Seg Neutrophils # Seg Neutrophils # Man Lymphocytes # (Manual) APTT POC ABG pH ABG pH POC ABG pCO2 POC ABG pO2 ABG pO2 ABG HCO3 ABG Base Excess ABG Hemoglobin VBG pH Oxyhemoglobin Sodium Potassium Chloride Carbon Dioxide BUN Creatinine Glucose POC Glucose 106 H 213 H 140 H Lactic Acid Calcium AST Alkaline Phosphatase CK-MB (CK-2) CK-MB (CK-2) Rel Index Albumin TSH Urine WBC (Auto) Salicylates 01/22/17 01/22/17 01/22/17 04:00 04:00 04:58 WBC RBC 3.26 L Hgb 8.3 L Hct 25.5 L MCV 78 L MCH 25 L RDW 17.9 H Plt Count Lymph % (Auto) [place] % (Auto) 7.9 H Eos % (Auto) 6.2 H Seg Neutrophils % Seg Neuts % (Manual) Lymphocytes % (Manual) Seg Neutrophils # Seg Neutrophils # Man Lymphocytes # (Manual) APTT POC ABG pH ABG pH POC ABG pCO2 POC ABG pO2 ABG pO2 ABG HCO3 ABG Base Excess ABG Hemoglobin VBG pH Oxyhemoglobin Sodium Potassium Chloride 95.5 L Carbon Dioxide 31 H D BUN Creatinine Glucose 134 H POC Glucose 146 H Lactic Acid Calcium AST 44 H Alkaline Phosphatase 379 H CK-MB (CK-2) CK-MB (CK-2) Rel Index Albumin 2.7 L TSH Urine WBC (Auto) Salicylates 01/22/17 01/22/17 01/22/17 12:12 18:12 23:39 WBC RBC Hgb Hct MCV MCH RDW Plt Count Lymph % (Auto) [place] % (Auto) Eos % (Auto) Seg Neutrophils % Seg Neuts % (Manual) Lymphocytes % (Manual) Seg Neutrophils # Seg Neutrophils # Man Lymphocytes # (Manual) APTT POC ABG pH ABG pH POC ABG pCO2 POC ABG pO2 ABG pO2 ABG HCO3 ABG Base Excess ABG Hemoglobin VBG pH Oxyhemoglobin Sodium Potassium Chloride Carbon Dioxide BUN Creatinine Glucose POC Glucose 255 H 182 H 134 H Lactic Acid Calcium AST Alkaline Phosphatase CK-MB (CK-2) CK-MB (CK-2) Rel Index Albumin TSH Urine WBC (Auto) Salicylates 01/23/17 01/23/17 01/23/17 04:43 12:12 17:36 WBC RBC Hgb Hct MCV MCH RDW Plt Count Lymph % (Auto) [place] % (Auto) Eos % (Auto) Seg Neutrophils % Seg Neuts % (Manual) Lymphocytes % (Manual) Seg Neutrophils # Seg Neutrophils # Man Lymphocytes # (Manual) APTT POC ABG pH ABG pH POC ABG pCO2 POC ABG pO2 ABG pO2 ABG HCO3 ABG Base Excess ABG Hemoglobin VBG pH Oxyhemoglobin Sodium Potassium Chloride Carbon Dioxide BUN Creatinine Glucose POC Glucose 218 H 128 H 156 H Lactic Acid Calcium AST Alkaline Phosphatase CK-MB (CK-2) CK-MB (CK-2) Rel Index Albumin TSH Urine WBC (Auto) Salicylates 01/24/17 01/24/17 01/24/17 00:08 05:16 11:40 WBC RBC Hgb Hct MCV MCH RDW Plt Count Lymph % (Auto) [place] % (Auto) Eos % (Auto) Seg Neutrophils % Seg Neuts % (Manual) Lymphocytes % (Manual) Seg Neutrophils # Seg Neutrophils # Man Lymphocytes # (Manual) APTT POC ABG pH ABG pH POC ABG pCO2 POC ABG pO2 ABG pO2 ABG HCO3 ABG Base Excess ABG Hemoglobin VBG pH Oxyhemoglobin Sodium Potassium Chloride Carbon Dioxide BUN Creatinine Glucose POC Glucose 129 H 169 H 187 H Lactic Acid Calcium AST Alkaline Phosphatase CK-MB (CK-2) CK-MB (CK-2) Rel Index Albumin TSH Urine WBC (Auto) Salicylates 01/24/17 01/24/17 01/25/17 17:43 23:23 04:56 WBC RBC Hgb Hct MCV MCH RDW Plt Count Lymph % (Auto) [place] % (Auto) Eos % (Auto) Seg Neutrophils % Seg Neuts % (Manual) Lymphocytes % (Manual) Seg Neutrophils # Seg Neutrophils # Man Lymphocytes # (Manual) APTT POC ABG pH ABG pH POC ABG pCO2 POC ABG pO2 ABG pO2 ABG HCO3 ABG Base Excess ABG Hemoglobin VBG pH Oxyhemoglobin Sodium Potassium Chloride Carbon Dioxide BUN Creatinine Glucose POC Glucose 215 H 222 H 210 H Lactic Acid Calcium AST Alkaline Phosphatase CK-MB (CK-2) CK-MB (CK-2) Rel Index Albumin TSH Urine WBC (Auto) Salicylates 01/25/17 01/25/17 01/26/17 11:52 17:37 00:02 WBC RBC Hgb Hct MCV MCH RDW Plt Count Lymph % (Auto) [place] % (Auto) Eos % (Auto) Seg Neutrophils % Seg Neuts % (Manual) Lymphocytes % (Manual) Seg Neutrophils # Seg Neutrophils # Man Lymphocytes # (Manual) APTT POC ABG pH ABG pH POC ABG pCO2 POC ABG pO2 ABG pO2 ABG HCO3 ABG Base Excess ABG Hemoglobin VBG pH Oxyhemoglobin Sodium Potassium Chloride Carbon Dioxide BUN Creatinine Glucose POC Glucose 284 H 218 H 192 H Lactic Acid Calcium AST Alkaline Phosphatase CK-MB (CK-2) CK-MB (CK-2) Rel Index Albumin TSH Urine WBC (Auto) Salicylates 01/26/17 01/26/17 01/26/17 05:33 12:17 17:50 WBC RBC Hgb Hct MCV MCH RDW Plt Count Lymph % (Auto) [place] % (Auto) Eos % (Auto) Seg Neutrophils % Seg Neuts % (Manual) Lymphocytes % (Manual) Seg Neutrophils # Seg Neutrophils # Man Lymphocytes # (Manual) APTT POC ABG pH ABG pH POC ABG pCO2 POC ABG pO2 ABG pO2 ABG HCO3 ABG Base Excess ABG Hemoglobin VBG pH Oxyhemoglobin Sodium Potassium Chloride Carbon Dioxide BUN Creatinine Glucose POC Glucose 199 H 227 H 229 H Lactic Acid Calcium AST Alkaline Phosphatase CK-MB (CK-2) CK-MB (CK-2) Rel Index Albumin TSH Urine WBC (Auto) Salicylates 01/26/17 01/27/17 01/27/17 23:57 05:31 11:42 WBC RBC Hgb Hct MCV MCH RDW Plt Count Lymph % (Auto) [place] % (Auto) Eos % (Auto) Seg Neutrophils % Seg Neuts % (Manual) Lymphocytes % (Manual) Seg Neutrophils # Seg Neutrophils # Man Lymphocytes # (Manual) APTT POC ABG pH ABG pH POC ABG pCO2 POC ABG pO2 ABG pO2 ABG HCO3 ABG Base Excess ABG Hemoglobin VBG pH Oxyhemoglobin Sodium Potassium Chloride Carbon Dioxide BUN Creatinine Glucose POC Glucose 186 H 285 H 260 H Lactic Acid Calcium AST Alkaline Phosphatase CK-MB (CK-2) CK-MB (CK-2) Rel Index Albumin TSH Urine WBC (Auto) Salicylates 01/27/17 01/27/17 01/27/17 17:47 23:58 Unknown WBC 12.1 H RBC 3.28 L Hgb 8.5 L Hct 25.5 L MCV 78 L MCH 26 L RDW 16.8 H Plt Count 601 H Lymph % (Auto) [place] % (Auto) Eos % (Auto) Seg Neutrophils % Seg Neuts % (Manual) Lymphocytes % (Manual) Seg Neutrophils # Seg Neutrophils # Man Lymphocytes # (Manual) APTT POC ABG pH ABG pH POC ABG pCO2 POC ABG pO2 ABG pO2 ABG HCO3 ABG Base Excess ABG Hemoglobin VBG pH Oxyhemoglobin Sodium Potassium Chloride Carbon Dioxide BUN Creatinine Glucose POC Glucose 329 H 225 H Lactic Acid Calcium AST Alkaline Phosphatase CK-MB (CK-2) CK-MB (CK-2) Rel Index Albumin TSH Urine WBC (Auto) Salicylates 01/27/17 01/28/17 01/28/17 Unknown 03:44 03:44 WBC RBC 3.14 L Hgb 8.2 L Hct 24.1 L MCV 77 L MCH 26 L RDW 16.9 H Plt Count 567 H Lymph % (Auto) [place] % (Auto) Eos % (Auto) Seg Neutrophils % Seg Neuts % (Manual) Lymphocytes % (Manual) Seg Neutrophils # Seg Neutrophils # Man Lymphocytes # (Manual) APTT POC ABG pH ABG pH POC ABG pCO2 POC ABG pO2 ABG pO2 ABG HCO3 ABG Base Excess ABG Hemoglobin VBG pH Oxyhemoglobin Sodium 128 L Potassium 5.4 H Chloride 87.5 L Carbon Dioxide BUN 44 H 42 H Creatinine Glucose 250 H 128 H POC Glucose Lactic Acid Calcium AST Alkaline Phosphatase CK-MB (CK-2) CK-MB (CK-2) Rel Index Albumin TSH Urine WBC (Auto) Salicylates 01/28/17 01/28/17 01/28/17 11:43 16:47 17:52 WBC RBC Hgb Hct MCV MCH RDW Plt Count Lymph % (Auto) [place] % (Auto) Eos % (Auto) Seg Neutrophils % Seg Neuts % (Manual) Lymphocytes % (Manual) Seg Neutrophils # Seg Neutrophils # Man Lymphocytes # (Manual) APTT POC ABG pH ABG pH POC ABG pCO2 POC ABG pO2 ABG pO2 ABG HCO3 ABG Base Excess ABG Hemoglobin VBG pH Oxyhemoglobin Sodium Potassium Chloride Carbon Dioxide BUN Creatinine Glucose POC Glucose 351 H 249 H Lactic Acid Calcium AST Alkaline Phosphatase CK-MB (CK-2) CK-MB (CK-2) Rel Index Albumin TSH Urine WBC (Auto) > 182.0 H Salicylates 01/29/17 01/29/17 01/29/17 05:25 05:25 09:32 WBC 13.6 H RBC 3.25 L Hgb 8.3 L Hct 25.1 L MCV 77 L MCH 26 L RDW 16.8 H Plt Count 514 H Lymph % (Auto) [place] % (Auto) Eos % (Auto) Seg Neutrophils % Seg Neuts % (Manual) Lymphocytes % (Manual) Seg Neutrophils # Seg Neutrophils # Man Lymphocytes # (Manual) APTT POC ABG pH ABG pH POC ABG pCO2 POC ABG pO2 ABG pO2 ABG HCO3 ABG Base Excess ABG Hemoglobin VBG pH Oxyhemoglobin Sodium Potassium Chloride 97.8 L Carbon Dioxide BUN 34 H Creatinine Glucose 222 H POC Glucose Lactic Acid 2.50 H* Calcium AST Alkaline Phosphatase CK-MB (CK-2) CK-MB (CK-2) Rel Index Albumin TSH Urine WBC (Auto) Salicylates 01/29/17 01/29/17 01/29/17 11:56 18:11 23:55 WBC RBC Hgb Hct MCV MCH RDW Plt Count Lymph % (Auto) [place] % (Auto) Eos % (Auto) Seg Neutrophils % Seg Neuts % (Manual) Lymphocytes % (Manual) Seg Neutrophils # Seg Neutrophils # Man Lymphocytes # (Manual) APTT POC ABG pH ABG pH POC ABG pCO2 POC ABG pO2 ABG pO2 ABG HCO3 ABG Base Excess ABG Hemoglobin VBG pH Oxyhemoglobin Sodium Potassium Chloride Carbon Dioxide BUN Creatinine Glucose POC Glucose 261 H 215 H 176 H Lactic Acid Calcium AST Alkaline Phosphatase CK-MB (CK-2) CK-MB (CK-2) Rel Index Albumin TSH Urine WBC (Auto) Salicylates 01/30/17 01/30/17 01/30/17 05:31 05:31 05:34 WBC 15.2 H RBC 3.09 L Hgb 7.9 L Hct 23.9 L MCV 77 L MCH 26 L RDW 16.9 H Plt Count 569 H Lymph % (Auto) [place] % (Auto) Eos % (Auto) Seg Neutrophils % Seg Neuts % (Manual) Lymphocytes % (Manual) Seg Neutrophils # Seg Neutrophils # Man Lymphocytes # (Manual) APTT POC ABG pH ABG pH POC ABG pCO2 POC ABG pO2 ABG pO2 ABG HCO3 ABG Base Excess ABG Hemoglobin VBG pH Oxyhemoglobin Sodium Potassium Chloride Carbon Dioxide BUN 24 H Creatinine Glucose 235 H POC Glucose 243 H Lactic Acid Calcium AST Alkaline Phosphatase CK-MB (CK-2) CK-MB (CK-2) Rel Index Albumin TSH Urine WBC (Auto) Salicylates 01/30/17 01/30/17 01/30/17 11:38 17:58 23:29 WBC RBC Hgb Hct MCV MCH RDW Plt Count Lymph % (Auto) [place] % (Auto) Eos % (Auto) Seg Neutrophils % Seg Neuts % (Manual) Lymphocytes % (Manual) Seg Neutrophils # Seg Neutrophils # Man Lymphocytes # (Manual) APTT POC ABG pH ABG pH POC ABG pCO2 POC ABG pO2 ABG pO2 ABG HCO3 ABG Base Excess ABG Hemoglobin VBG pH Oxyhemoglobin Sodium Potassium Chloride Carbon Dioxide BUN Creatinine Glucose POC Glucose 298 H 208 H 245 H Lactic Acid Calcium AST Alkaline Phosphatase CK-MB (CK-2) CK-MB (CK-2) Rel Index Albumin TSH Urine WBC (Auto) Salicylates 01/31/17 01/31/17 01/31/17 04:39 04:39 05:57 WBC 11.4 H RBC 3.22 L Hgb 8.2 L Hct 24.9 L MCV 78 L MCH 25 L RDW 17.2 H Plt Count 576 H Lymph % (Auto) [place] % (Auto) Eos % (Auto) Seg Neutrophils % Seg Neuts % (Manual) Lymphocytes % (Manual) Seg Neutrophils # Seg Neutrophils # Man Lymphocytes # (Manual) APTT POC ABG pH ABG pH POC ABG pCO2 POC ABG pO2 ABG pO2 ABG HCO3 ABG Base Excess ABG Hemoglobin VBG pH Oxyhemoglobin Sodium Potassium Chloride Carbon Dioxide BUN Creatinine 0.7 L Glucose 223 H POC Glucose 264 H Lactic Acid Calcium AST Alkaline Phosphatase CK-MB (CK-2) CK-MB (CK-2) Rel Index Albumin TSH Urine WBC (Auto) Salicylates 01/31/17 01/31/17 01/31/17 12:23 17:41 18:55 WBC RBC Hgb Hct MCV MCH RDW Plt Count Lymph % (Auto) [place] % (Auto) Eos % (Auto) Seg Neutrophils % Seg Neuts % (Manual) Lymphocytes % (Manual) Seg Neutrophils # Seg Neutrophils # Man Lymphocytes # (Manual) APTT POC ABG pH ABG pH POC ABG pCO2 32.8 L POC ABG pO2 ABG pO2 ABG HCO3 ABG Base Excess ABG Hemoglobin VBG pH Oxyhemoglobin Sodium Potassium Chloride Carbon Dioxide BUN Creatinine Glucose POC Glucose 252 H 208 H Lactic Acid Calcium AST Alkaline Phosphatase CK-MB (CK-2) CK-MB (CK-2) Rel Index Albumin TSH Urine WBC (Auto) Salicylates 01/31/17 02/01/17 02/01/17 22:59 03:38 03:38 WBC RBC 2.81 L Hgb 7.4 L Hct 22.1 L MCV 79 L MCH 27 L RDW 17.0 H Plt Count 540 H Lymph % (Auto) [place] % (Auto) Eos % (Auto) Seg Neutrophils % Seg Neuts % (Manual) Lymphocytes % (Manual) Seg Neutrophils # Seg Neutrophils # Man Lymphocytes # (Manual) APTT POC ABG pH ABG pH POC ABG pCO2 POC ABG pO2 ABG pO2 ABG HCO3 ABG Base Excess ABG Hemoglobin VBG pH Oxyhemoglobin Sodium Potassium Chloride Carbon Dioxide 21 L BUN Creatinine 0.7 L Glucose POC Glucose 40 L Lactic Acid Calcium AST Alkaline Phosphatase CK-MB (CK-2) CK-MB (CK-2) Rel Index Albumin TSH Urine WBC (Auto) Salicylates 02/01/17 02/01/17 02/01/17 05:17 12:19 16:44 WBC RBC Hgb Hct MCV MCH RDW Plt Count Lymph % (Auto) [place] % (Auto) Eos % (Auto) Seg Neutrophils % Seg Neuts % (Manual) Lymphocytes % (Manual) Seg Neutrophils # Seg Neutrophils # Man Lymphocytes # (Manual) APTT POC ABG pH ABG pH POC ABG pCO2 POC ABG pO2 ABG pO2 ABG HCO3 ABG Base Excess ABG Hemoglobin VBG pH Oxyhemoglobin Sodium Potassium Chloride Carbon Dioxide BUN Creatinine Glucose POC Glucose 140 H 213 H 172 H Lactic Acid Calcium AST Alkaline Phosphatase CK-MB (CK-2) CK-MB (CK-2) Rel Index Albumin TSH Urine WBC (Auto) Salicylates 02/01/17 02/02/17 02/02/17 23:59 05:14 11:24 WBC RBC Hgb Hct MCV MCH RDW Plt Count Lymph % (Auto) [place] % (Auto) Eos % (Auto) Seg Neutrophils % Seg Neuts % (Manual) Lymphocytes % (Manual) Seg Neutrophils # Seg Neutrophils # Man Lymphocytes # (Manual) APTT POC ABG pH ABG pH POC ABG pCO2 POC ABG pO2 ABG pO2 ABG HCO3 ABG Base Excess ABG Hemoglobin VBG pH Oxyhemoglobin Sodium Potassium Chloride Carbon Dioxide BUN Creatinine Glucose POC Glucose 181 H 194 H 209 H Lactic Acid Calcium AST Alkaline Phosphatase CK-MB (CK-2) CK-MB (CK-2) Rel Index Albumin TSH Urine WBC (Auto) Salicylates 02/02/17 02/02/17 02/02/17 11:46 11:46 17:47 WBC RBC 2.94 L Hgb 7.5 L Hct 23.0 L MCV 78 L MCH 25 L RDW 16.9 H Plt Count 520 H Lymph % (Auto) [place] % (Auto) Eos % (Auto) Seg Neutrophils % Seg Neuts % (Manual) Lymphocytes % (Manual) Seg Neutrophils # Seg Neutrophils # Man Lymphocytes # (Manual) APTT POC ABG pH ABG pH POC ABG pCO2 POC ABG pO2 ABG pO2 ABG HCO3 ABG Base Excess ABG Hemoglobin VBG pH Oxyhemoglobin Sodium Potassium Chloride Carbon Dioxide BUN Creatinine 0.6 L Glucose 189 H POC Glucose 147 H Lactic Acid Calcium 8.1 L AST Alkaline Phosphatase CK-MB (CK-2) CK-MB (CK-2) Rel Index Albumin TSH Urine WBC (Auto) Salicylates 02/02/17 02/03/17 02/03/17 23:32 05:53 11:19 WBC RBC Hgb Hct MCV MCH RDW Plt Count Lymph % (Auto) [place] % (Auto) Eos % (Auto) Seg Neutrophils % Seg Neuts % (Manual) Lymphocytes % (Manual) Seg Neutrophils # Seg Neutrophils # Man Lymphocytes # (Manual) APTT POC ABG pH ABG pH POC ABG pCO2 POC ABG pO2 ABG pO2 ABG HCO3 ABG Base Excess ABG Hemoglobin VBG pH Oxyhemoglobin Sodium Potassium Chloride Carbon Dioxide BUN Creatinine Glucose POC Glucose 176 H 224 H 228 H Lactic Acid Calcium AST Alkaline Phosphatase CK-MB (CK-2) CK-MB (CK-2) Rel Index Albumin TSH Urine WBC (Auto) Salicylates 02/03/17 02/03/17 02/04/17 16:59 23:38 05:45 WBC RBC Hgb Hct MCV MCH RDW Plt Count Lymph % (Auto) [place] % (Auto) Eos % (Auto) Seg Neutrophils % Seg Neuts % (Manual) Lymphocytes % (Manual) Seg Neutrophils # Seg Neutrophils # Man Lymphocytes # (Manual) APTT POC ABG pH ABG pH POC ABG pCO2 POC ABG pO2 ABG pO2 ABG HCO3 ABG Base Excess ABG Hemoglobin VBG pH Oxyhemoglobin Sodium Potassium Chloride Carbon Dioxide BUN Creatinine Glucose POC Glucose 189 H 191 H 251 H Lactic Acid Calcium AST Alkaline Phosphatase CK-MB (CK-2) CK-MB (CK-2) Rel Index Albumin TSH Urine WBC (Auto) Salicylates 02/04/17 02/04/17 02/05/17 11:20 17:20 00:17 WBC RBC Hgb Hct MCV MCH RDW Plt Count Lymph % (Auto) [place] % (Auto) Eos % (Auto) Seg Neutrophils % Seg Neuts % (Manual) Lymphocytes % (Manual) Seg Neutrophils # Seg Neutrophils # Man Lymphocytes # (Manual) APTT POC ABG pH ABG pH POC ABG pCO2 POC ABG pO2 ABG pO2 ABG HCO3 ABG Base Excess ABG Hemoglobin VBG pH Oxyhemoglobin Sodium Potassium Chloride Carbon Dioxide BUN Creatinine Glucose POC Glucose 243 H 163 H 200 H Lactic Acid Calcium AST Alkaline Phosphatase CK-MB (CK-2) CK-MB (CK-2) Rel Index Albumin TSH Urine WBC (Auto) Salicylates 02/05/17 02/05/17 02/05/17 05:38 12:38 16:29 WBC RBC Hgb Hct MCV MCH RDW Plt Count Lymph % (Auto) [place] % (Auto) Eos % (Auto) Seg Neutrophils % Seg Neuts % (Manual) Lymphocytes % (Manual) Seg Neutrophils # Seg Neutrophils # Man Lymphocytes # (Manual) APTT POC ABG pH ABG pH POC ABG pCO2 POC ABG pO2 ABG pO2 ABG HCO3 ABG Base Excess ABG Hemoglobin VBG pH Oxyhemoglobin Sodium Potassium Chloride Carbon Dioxide BUN Creatinine Glucose POC Glucose 248 H 241 H 257 H Lactic Acid Calcium AST Alkaline Phosphatase CK-MB (CK-2) CK-MB (CK-2) Rel Index Albumin TSH Urine WBC (Auto) Salicylates 02/05/17 02/06/17 02/06/17 23:56 05:30 11:50 WBC RBC Hgb Hct MCV MCH RDW Plt Count Lymph % (Auto) [place] % (Auto) Eos % (Auto) Seg Neutrophils % Seg Neuts % (Manual) Lymphocytes % (Manual) Seg Neutrophils # Seg Neutrophils # Man Lymphocytes # (Manual) APTT POC ABG pH ABG pH POC ABG pCO2 POC ABG pO2 ABG pO2 ABG HCO3 ABG Base Excess ABG Hemoglobin VBG pH Oxyhemoglobin Sodium Potassium Chloride Carbon Dioxide BUN Creatinine Glucose POC Glucose 258 H 120 H 254 H Lactic Acid Calcium AST Alkaline Phosphatase CK-MB (CK-2) CK-MB (CK-2) Rel Index Albumin TSH Urine WBC (Auto) Salicylates 02/06/17 02/06/17 02/07/17 17:11 23:50 05:22 WBC RBC Hgb Hct MCV MCH RDW Plt Count Lymph % (Auto) [place] % (Auto) Eos % (Auto) Seg Neutrophils % Seg Neuts % (Manual) Lymphocytes % (Manual) Seg Neutrophils # Seg Neutrophils # Man Lymphocytes # (Manual) APTT POC ABG pH ABG pH POC ABG pCO2 POC ABG pO2 ABG pO2 ABG HCO3 ABG Base Excess ABG Hemoglobin VBG pH Oxyhemoglobin Sodium Potassium Chloride Carbon Dioxide BUN Creatinine Glucose POC Glucose 149 H 240 H 258 H Lactic Acid Calcium AST Alkaline Phosphatase CK-MB (CK-2) CK-MB (CK-2) Rel Index Albumin TSH Urine WBC (Auto) Salicylates 02/07/17 02/07/17 02/07/17 11:15 18:33 23:59 WBC RBC Hgb Hct MCV MCH RDW Plt Count Lymph % (Auto) [place] % (Auto) Eos % (Auto) Seg Neutrophils % Seg Neuts % (Manual) Lymphocytes % (Manual) Seg Neutrophils # Seg Neutrophils # Man Lymphocytes # (Manual) APTT POC ABG pH ABG pH POC ABG pCO2 POC ABG pO2 ABG pO2 ABG HCO3 ABG Base Excess ABG Hemoglobin VBG pH Oxyhemoglobin Sodium Potassium Chloride Carbon Dioxide BUN Creatinine Glucose POC Glucose 239 H 176 H 186 H Lactic Acid Calcium AST Alkaline Phosphatase CK-MB (CK-2) CK-MB (CK-2) Rel Index Albumin TSH Urine WBC (Auto) Salicylates 02/08/17 02/08/17 02/08/17 06:15 11:55 16:55 WBC RBC Hgb Hct MCV MCH RDW Plt Count Lymph % (Auto) [place] % (Auto) Eos % (Auto) Seg Neutrophils % Seg Neuts % (Manual) Lymphocytes % (Manual) Seg Neutrophils # Seg Neutrophils # Man Lymphocytes # (Manual) APTT POC ABG pH ABG pH POC ABG pCO2 POC ABG pO2 ABG pO2 ABG HCO3 ABG Base Excess ABG Hemoglobin VBG pH Oxyhemoglobin Sodium Potassium Chloride Carbon Dioxide BUN Creatinine Glucose POC Glucose 195 H 129 H 246 H Lactic Acid Calcium AST Alkaline Phosphatase CK-MB (CK-2) CK-MB (CK-2) Rel Index Albumin TSH Urine WBC (Auto) Salicylates 02/08/17 02/09/17 02/09/17 23:51 05:51 07:24 WBC 14.7 H RBC 3.39 L Hgb 8.9 L Hct 26.4 L MCV 78 L MCH 26 L RDW 18.4 H Plt Count 670 H Lymph % (Auto) 11.8 L [place] % (Auto) Eos % (Auto) Seg Neutrophils % 81.2 H Seg Neuts % (Manual) Lymphocytes % (Manual) Seg Neutrophils # 11.9 H Seg Neutrophils # Man Lymphocytes # (Manual) APTT POC ABG pH ABG pH POC ABG pCO2 POC ABG pO2 ABG pO2 ABG HCO3 ABG Base Excess ABG Hemoglobin VBG pH Oxyhemoglobin Sodium Potassium Chloride Carbon Dioxide BUN Creatinine Glucose POC Glucose 262 H 295 H Lactic Acid Calcium AST Alkaline Phosphatase CK-MB (CK-2) CK-MB (CK-2) Rel Index Albumin TSH Urine WBC (Auto) Salicylates 02/09/17 02/09/17 02/09/17 07:24 12:08 18:39 WBC RBC Hgb Hct MCV MCH RDW Plt Count Lymph % (Auto) [place] % (Auto) Eos % (Auto) Seg Neutrophils % Seg Neuts % (Manual) Lymphocytes % (Manual) Seg Neutrophils # Seg Neutrophils # Man Lymphocytes # (Manual) APTT POC ABG pH ABG pH POC ABG pCO2 POC ABG pO2 ABG pO2 ABG HCO3 ABG Base Excess ABG Hemoglobin VBG pH Oxyhemoglobin Sodium Potassium Chloride 95.5 L Carbon Dioxide BUN 52 H Creatinine Glucose 277 H POC Glucose 236 H 151 H Lactic Acid Calcium AST Alkaline Phosphatase CK-MB (CK-2) CK-MB (CK-2) Rel Index Albumin TSH Urine WBC (Auto) Salicylates 02/10/17 02/10/17 02/10/17 00:01 05:44 11:21 WBC RBC Hgb Hct MCV MCH RDW Plt Count Lymph % (Auto) [place] % (Auto) Eos % (Auto) Seg Neutrophils % Seg Neuts % (Manual) Lymphocytes % (Manual) Seg Neutrophils # Seg Neutrophils # Man Lymphocytes # (Manual) APTT POC ABG pH ABG pH POC ABG pCO2 POC ABG pO2 ABG pO2 ABG HCO3 ABG Base Excess ABG Hemoglobin VBG pH Oxyhemoglobin Sodium Potassium Chloride Carbon Dioxide BUN Creatinine Glucose POC Glucose 210 H 201 H 233 H Lactic Acid Calcium AST Alkaline Phosphatase CK-MB (CK-2) CK-MB (CK-2) Rel Index Albumin TSH Urine WBC (Auto) Salicylates 02/10/17 02/10/17 02/11/17 17:29 23:56 05:24 WBC RBC Hgb Hct MCV MCH RDW Plt Count Lymph % (Auto) [place] % (Auto) Eos % (Auto) Seg Neutrophils % Seg Neuts % (Manual) Lymphocytes % (Manual) Seg Neutrophils # Seg Neutrophils # Man Lymphocytes # (Manual) APTT POC ABG pH ABG pH POC ABG pCO2 POC ABG pO2 ABG pO2 ABG HCO3 ABG Base Excess ABG Hemoglobin VBG pH Oxyhemoglobin Sodium Potassium Chloride Carbon Dioxide BUN Creatinine Glucose POC Glucose 167 H 191 H 135 H Lactic Acid Calcium AST Alkaline Phosphatase CK-MB (CK-2) CK-MB (CK-2) Rel Index Albumin TSH Urine WBC (Auto) Salicylates 02/11/17 02/11/17 02/11/17 12:25 17:03 23:59 WBC RBC Hgb Hct MCV MCH RDW Plt Count Lymph % (Auto) [place] % (Auto) Eos % (Auto) Seg Neutrophils % Seg Neuts % (Manual) Lymphocytes % (Manual) Seg Neutrophils # Seg Neutrophils # Man Lymphocytes # (Manual) APTT POC ABG pH ABG pH POC ABG pCO2 POC ABG pO2 ABG pO2 ABG HCO3 ABG Base Excess ABG Hemoglobin VBG pH Oxyhemoglobin Sodium Potassium Chloride Carbon Dioxide BUN Creatinine Glucose POC Glucose 275 H 172 H 215 H Lactic Acid Calcium AST Alkaline Phosphatase CK-MB (CK-2) CK-MB (CK-2) Rel Index Albumin TSH Urine WBC (Auto) Salicylates 02/12/17 02/12/17 02/12/17 05:39 11:33 17:55 WBC RBC Hgb Hct MCV MCH RDW Plt Count Lymph % (Auto) [place] % (Auto) Eos % (Auto) Seg Neutrophils % Seg Neuts % (Manual) Lymphocytes % (Manual) Seg Neutrophils # Seg Neutrophils # Man Lymphocytes # (Manual) APTT POC ABG pH ABG pH POC ABG pCO2 POC ABG pO2 ABG pO2 ABG HCO3 ABG Base Excess ABG Hemoglobin VBG pH Oxyhemoglobin Sodium Potassium Chloride Carbon Dioxide BUN Creatinine Glucose POC Glucose 261 H 217 H 172 H Lactic Acid Calcium AST Alkaline Phosphatase CK-MB (CK-2) CK-MB (CK-2) Rel Index Albumin TSH Urine WBC (Auto) Salicylates 02/13/17 02/13/17 02/13/17 00:25 06:46 11:26 WBC RBC Hgb Hct MCV MCH RDW Plt Count Lymph % (Auto) [place] % (Auto) Eos % (Auto) Seg Neutrophils % Seg Neuts % (Manual) Lymphocytes % (Manual) Seg Neutrophils # Seg Neutrophils # Man Lymphocytes # (Manual) APTT POC ABG pH ABG pH POC ABG pCO2 POC ABG pO2 ABG pO2 ABG HCO3 ABG Base Excess ABG Hemoglobin VBG pH Oxyhemoglobin Sodium Potassium Chloride Carbon Dioxide BUN Creatinine Glucose POC Glucose 207 H 219 H 231 H Lactic Acid Calcium AST Alkaline Phosphatase CK-MB (CK-2) CK-MB (CK-2) Rel Index Albumin TSH Urine WBC (Auto) Salicylates 02/13/17 02/13/17 02/14/17 17:12 23:44 05:44 WBC RBC Hgb Hct MCV MCH RDW Plt Count Lymph % (Auto) [place] % (Auto) Eos % (Auto) Seg Neutrophils % Seg Neuts % (Manual) Lymphocytes % (Manual) Seg Neutrophils # Seg Neutrophils # Man Lymphocytes # (Manual) APTT POC ABG pH ABG pH POC ABG pCO2 POC ABG pO2 ABG pO2 ABG HCO3 ABG Base Excess ABG Hemoglobin VBG pH Oxyhemoglobin Sodium Potassium Chloride Carbon Dioxide BUN Creatinine Glucose POC Glucose 190 H 256 H 184 H Lactic Acid Calcium AST Alkaline Phosphatase CK-MB (CK-2) CK-MB (CK-2) Rel Index Albumin TSH Urine WBC (Auto) Salicylates 02/14/17 02/14/17 02/14/17 12:21 17:57 23:18 WBC RBC Hgb Hct MCV MCH RDW Plt Count Lymph % (Auto) [place] % (Auto) Eos % (Auto) Seg Neutrophils % Seg Neuts % (Manual) Lymphocytes % (Manual) Seg Neutrophils # Seg Neutrophils # Man Lymphocytes # (Manual) APTT POC ABG pH ABG pH POC ABG pCO2 POC ABG pO2 ABG pO2 ABG HCO3 ABG Base Excess ABG Hemoglobin VBG pH Oxyhemoglobin Sodium Potassium Chloride Carbon Dioxide BUN Creatinine Glucose POC Glucose 233 H 155 H 165 H Lactic Acid Calcium AST Alkaline Phosphatase CK-MB (CK-2) CK-MB (CK-2) Rel Index Albumin TSH Urine WBC (Auto) Salicylates 02/15/17 02/15/17 02/15/17 05:33 11:45 17:20 WBC RBC Hgb Hct MCV MCH RDW Plt Count Lymph % (Auto) [place] % (Auto) Eos % (Auto) Seg Neutrophils % Seg Neuts % (Manual) Lymphocytes % (Manual) Seg Neutrophils # Seg Neutrophils # Man Lymphocytes # (Manual) APTT POC ABG pH ABG pH POC ABG pCO2 POC ABG pO2 ABG pO2 ABG HCO3 ABG Base Excess ABG Hemoglobin VBG pH Oxyhemoglobin Sodium Potassium Chloride Carbon Dioxide BUN Creatinine Glucose POC Glucose 239 H 130 H 189 H Lactic Acid Calcium AST Alkaline Phosphatase CK-MB (CK-2) CK-MB (CK-2) Rel Index Albumin TSH Urine WBC (Auto) Salicylates 02/16/17 02/16/17 02/16/17 00:14 05:09 12:31 WBC RBC Hgb Hct MCV MCH RDW Plt Count Lymph % (Auto) [place] % (Auto) Eos % (Auto) Seg Neutrophils % Seg Neuts % (Manual) Lymphocytes % (Manual) Seg Neutrophils # Seg Neutrophils # Man Lymphocytes # (Manual) APTT POC ABG pH ABG pH POC ABG pCO2 POC ABG pO2 ABG pO2 ABG HCO3 ABG Base Excess ABG Hemoglobin VBG pH Oxyhemoglobin Sodium Potassium Chloride Carbon Dioxide BUN Creatinine Glucose POC Glucose 197 H 226 H 178 H Lactic Acid Calcium AST Alkaline Phosphatase CK-MB (CK-2) CK-MB (CK-2) Rel Index Albumin TSH Urine WBC (Auto) Salicylates 02/16/17 02/16/17 02/17/17 16:35 23:49 05:37 WBC RBC Hgb Hct MCV MCH RDW Plt Count Lymph % (Auto) [place] % (Auto) Eos % (Auto) Seg Neutrophils % Seg Neuts % (Manual) Lymphocytes % (Manual) Seg Neutrophils # Seg Neutrophils # Man Lymphocytes # (Manual) APTT POC ABG pH ABG pH POC ABG pCO2 POC ABG pO2 ABG pO2 ABG HCO3 ABG Base Excess ABG Hemoglobin VBG pH Oxyhemoglobin Sodium Potassium Chloride Carbon Dioxide BUN Creatinine Glucose POC Glucose 174 H 62 L 153 H Lactic Acid Calcium AST Alkaline Phosphatase CK-MB (CK-2) CK-MB (CK-2) Rel Index Albumin TSH Urine WBC (Auto) Salicylates 02/17/17 02/17/17 02/17/17 11:39 17:02 22:24 WBC RBC Hgb Hct MCV MCH RDW Plt Count Lymph % (Auto) [place] % (Auto) Eos % (Auto) Seg Neutrophils % Seg Neuts % (Manual) Lymphocytes % (Manual) Seg Neutrophils # Seg Neutrophils # Man Lymphocytes # (Manual) APTT POC ABG pH ABG pH POC ABG pCO2 POC ABG pO2 ABG pO2 ABG HCO3 ABG Base Excess ABG Hemoglobin VBG pH Oxyhemoglobin Sodium Potassium Chloride Carbon Dioxide BUN Creatinine Glucose POC Glucose 231 H 112 H 116 H Lactic Acid Calcium AST Alkaline Phosphatase CK-MB (CK-2) CK-MB (CK-2) Rel Index Albumin TSH Urine WBC (Auto) Salicylates 02/18/17 02/19/17 02/19/17 15:34 05:09 07:57 WBC RBC Hgb Hct MCV MCH RDW Plt Count Lymph % (Auto) [place] % (Auto) Eos % (Auto) Seg Neutrophils % Seg Neuts % (Manual) Lymphocytes % (Manual) Seg Neutrophils # Seg Neutrophils # Man Lymphocytes # (Manual) APTT POC ABG pH ABG pH POC ABG pCO2 POC ABG pO2 ABG pO2 ABG HCO3 ABG Base Excess ABG Hemoglobin VBG pH Oxyhemoglobin Sodium Potassium Chloride Carbon Dioxide BUN Creatinine Glucose POC Glucose 215 H 218 H 283 H Lactic Acid Calcium AST Alkaline Phosphatase CK-MB (CK-2) CK-MB (CK-2) Rel Index Albumin TSH Urine WBC (Auto) Salicylates 02/19/17 02/19/17 02/20/17 14:49 22:10 05:10 WBC RBC Hgb Hct MCV MCH RDW Plt Count Lymph % (Auto) [place] % (Auto) Eos % (Auto) Seg Neutrophils % Seg Neuts % (Manual) Lymphocytes % (Manual) Seg Neutrophils # Seg Neutrophils # Man Lymphocytes # (Manual) APTT POC ABG pH ABG pH POC ABG pCO2 POC ABG pO2 ABG pO2 ABG HCO3 ABG Base Excess ABG Hemoglobin VBG pH Oxyhemoglobin Sodium Potassium Chloride Carbon Dioxide BUN Creatinine Glucose POC Glucose 290 H 169 H 209 H Lactic Acid Calcium AST Alkaline Phosphatase CK-MB (CK-2) CK-MB (CK-2) Rel Index Albumin TSH Urine WBC (Auto) Salicylates 02/20/17 02/20/17 02/21/17 15:05 21:52 02:00 WBC RBC Hgb Hct MCV MCH RDW Plt Count Lymph % (Auto) [place] % (Auto) Eos % (Auto) Seg Neutrophils % Seg Neuts % (Manual) Lymphocytes % (Manual) Seg Neutrophils # Seg Neutrophils # Man Lymphocytes # (Manual) APTT POC ABG pH ABG pH POC ABG pCO2 POC ABG pO2 ABG pO2 ABG HCO3 ABG Base Excess ABG Hemoglobin VBG pH Oxyhemoglobin Sodium Potassium Chloride Carbon Dioxide BUN Creatinine Glucose POC Glucose 172 H 209 H 216 H Lactic Acid Calcium AST Alkaline Phosphatase CK-MB (CK-2) CK-MB (CK-2) Rel Index Albumin TSH Urine WBC (Auto) Salicylates 02/21/17 02/21/17 02/21/17 04:54 14:43 17:47 WBC RBC Hgb Hct MCV MCH RDW Plt Count Lymph % (Auto) [place] % (Auto) Eos % (Auto) Seg Neutrophils % Seg Neuts % (Manual) Lymphocytes % (Manual) Seg Neutrophils # Seg Neutrophils # Man Lymphocytes # (Manual) APTT POC ABG pH ABG pH POC ABG pCO2 POC ABG pO2 ABG pO2 ABG HCO3 ABG Base Excess ABG Hemoglobin VBG pH Oxyhemoglobin Sodium Potassium Chloride Carbon Dioxide BUN Creatinine Glucose POC Glucose 227 H 290 H 220 H Lactic Acid Calcium AST Alkaline Phosphatase CK-MB (CK-2) CK-MB (CK-2) Rel Index Albumin TSH Urine WBC (Auto) Salicylates 02/21/17 02/22/17 02/22/17 22:02 04:52 15:25 WBC RBC Hgb Hct MCV MCH RDW Plt Count Lymph % (Auto) [place] % (Auto) Eos % (Auto) Seg Neutrophils % Seg Neuts % (Manual) Lymphocytes % (Manual) Seg Neutrophils # Seg Neutrophils # Man Lymphocytes # (Manual) APTT POC ABG pH ABG pH POC ABG pCO2 POC ABG pO2 ABG pO2 ABG HCO3 ABG Base Excess ABG Hemoglobin VBG pH Oxyhemoglobin Sodium Potassium Chloride Carbon Dioxide BUN Creatinine Glucose POC Glucose 246 H 212 H 236 H Lactic Acid Calcium AST Alkaline Phosphatase CK-MB (CK-2) CK-MB (CK-2) Rel Index Albumin TSH Urine WBC (Auto) Salicylates 02/22/17 02/23/17 02/23/17 21:33 06:04 10:00 WBC RBC Hgb Hct MCV MCH RDW Plt Count Lymph % (Auto) [place] % (Auto) Eos % (Auto) Seg Neutrophils % Seg Neuts % (Manual) Lymphocytes % (Manual) Seg Neutrophils # Seg Neutrophils # Man Lymphocytes # (Manual) APTT POC ABG pH ABG pH POC ABG pCO2 POC ABG pO2 ABG pO2 ABG HCO3 ABG Base Excess ABG Hemoglobin VBG pH Oxyhemoglobin Sodium Potassium Chloride Carbon Dioxide BUN Creatinine Glucose POC Glucose 255 H 208 H 174 H Lactic Acid Calcium AST Alkaline Phosphatase CK-MB (CK-2) CK-MB (CK-2) Rel Index Albumin TSH Urine WBC (Auto) Salicylates 02/23/17 02/23/17 02/23/17 12:52 17:15 21:51 WBC RBC Hgb Hct MCV MCH RDW Plt Count Lymph % (Auto) [place] % (Auto) Eos % (Auto) Seg Neutrophils % Seg Neuts % (Manual) Lymphocytes % (Manual) Seg Neutrophils # Seg Neutrophils # Man Lymphocytes # (Manual) APTT POC ABG pH ABG pH POC ABG pCO2 POC ABG pO2 ABG pO2 ABG HCO3 ABG Base Excess ABG Hemoglobin VBG pH Oxyhemoglobin Sodium Potassium Chloride Carbon Dioxide BUN Creatinine Glucose POC Glucose 203 H 269 H 205 H Lactic Acid Calcium AST Alkaline Phosphatase CK-MB (CK-2) CK-MB (CK-2) Rel Index Albumin TSH Urine WBC (Auto) Salicylates 02/24/17 02/24/17 02/24/17 10:23 17:45 21:24 WBC RBC Hgb Hct MCV MCH RDW Plt Count Lymph % (Auto) [place] % (Auto) Eos % (Auto) Seg Neutrophils % Seg Neuts % (Manual) Lymphocytes % (Manual) Seg Neutrophils # Seg Neutrophils # Man Lymphocytes # (Manual) APTT POC ABG pH ABG pH POC ABG pCO2 POC ABG pO2 ABG pO2 ABG HCO3 ABG Base Excess ABG Hemoglobin VBG pH Oxyhemoglobin Sodium Potassium Chloride Carbon Dioxide BUN Creatinine Glucose POC Glucose 280 H 239 H 254 H Lactic Acid Calcium AST Alkaline Phosphatase CK-MB (CK-2) CK-MB (CK-2) Rel Index Albumin TSH Urine WBC (Auto) Salicylates 02/25/17 02/25/17 02/25/17 02:12 05:17 14:32 WBC RBC Hgb Hct MCV MCH RDW Plt Count Lymph % (Auto) [place] % (Auto) Eos % (Auto) Seg Neutrophils % Seg Neuts % (Manual) Lymphocytes % (Manual) Seg Neutrophils # Seg Neutrophils # Man Lymphocytes # (Manual) APTT POC ABG pH ABG pH POC ABG pCO2 POC ABG pO2 ABG pO2 ABG HCO3 ABG Base Excess ABG Hemoglobin VBG pH Oxyhemoglobin Sodium Potassium Chloride Carbon Dioxide BUN Creatinine Glucose POC Glucose 296 H 332 H 353 H Lactic Acid Calcium AST Alkaline Phosphatase CK-MB (CK-2) CK-MB (CK-2) Rel Index Albumin TSH Urine WBC (Auto) Salicylates 02/25/17 02/26/17 02/26/17 22:14 00:37 05:52 WBC RBC Hgb Hct MCV MCH RDW Plt Count Lymph % (Auto) [place] % (Auto) Eos % (Auto) Seg Neutrophils % Seg Neuts % (Manual) Lymphocytes % (Manual) Seg Neutrophils # Seg Neutrophils # Man Lymphocytes # (Manual) APTT POC ABG pH ABG pH POC ABG pCO2 POC ABG pO2 ABG pO2 ABG HCO3 ABG Base Excess ABG Hemoglobin VBG pH Oxyhemoglobin Sodium Potassium Chloride Carbon Dioxide BUN Creatinine Glucose POC Glucose 201 H 233 H 269 H Lactic Acid Calcium AST Alkaline Phosphatase CK-MB (CK-2) CK-MB (CK-2) Rel Index Albumin TSH Urine WBC (Auto) Salicylates 02/26/17 02/26/17 02/26/17 11:48 13:49 21:26 WBC RBC Hgb Hct MCV MCH RDW Plt Count Lymph % (Auto) [place] % (Auto) Eos % (Auto) Seg Neutrophils % Seg Neuts % (Manual) Lymphocytes % (Manual) Seg Neutrophils # Seg Neutrophils # Man Lymphocytes # (Manual) APTT POC ABG pH ABG pH POC ABG pCO2 POC ABG pO2 ABG pO2 ABG HCO3 ABG Base Excess ABG Hemoglobin VBG pH Oxyhemoglobin Sodium Potassium Chloride Carbon Dioxide BUN Creatinine Glucose POC Glucose 333 H 322 H 244 H Lactic Acid Calcium AST Alkaline Phosphatase CK-MB (CK-2) CK-MB (CK-2) Rel Index Albumin TSH Urine WBC (Auto) Salicylates 02/27/17 05:27 WBC RBC Hgb Hct MCV MCH RDW Plt Count Lymph % (Auto) [place] % (Auto) Eos % (Auto) Seg Neutrophils % Seg Neuts % (Manual) Lymphocytes % (Manual) Seg Neutrophils # Seg Neutrophils # Man Lymphocytes # (Manual) APTT POC ABG pH ABG pH POC ABG pCO2 POC ABG pO2 ABG pO2 ABG HCO3 ABG Base Excess ABG Hemoglobin VBG pH Oxyhemoglobin Sodium Potassium Chloride Carbon Dioxide BUN Creatinine Glucose POC Glucose 217 H Lactic Acid Calcium AST Alkaline Phosphatase CK-MB (CK-2) CK-MB (CK-2) Rel Index Albumin TSH Urine WBC (Auto) Salicylates
[2017-02-27] MEDS: HEPARIN SUB-Q SCH ×2 (09:54→22:39)
[2017-02-27] MEDS: LEVEMIR (NF) SUB-Q SCH (09:55)
[2017-02-27] MEDS: PEPCID PO SCH ×2 (09:55→22:39)
[2017-02-27] MEDS: NORMODYNE PO SCH ×2 (11:49→22:39)
--- NOTE | 2017-02-27 15:09 | Progress Note ---
Assessment and Plan Hypoglycemic brain injury Persistent vegetative state Metabolic encephalopathy Hypoglycemia/hypothermia, resolved Acute respiratory failure mechanical ventilator greater than 96 hours UTI with klebsiella, treated ( Cx + on 01/28) hyponatremia, Hypothyroidism IDDM Hypertension low grade Fever, resolved - Cont supportive care and current medication. Monitor vitals, repeat cx on - no growth - increase dose of long acting insulin to 15 unit today - Patient is DNR- needs guardianship from the state to give consent for further management, as has no family to give consent. Brief History: 51 YO Male with CKD,HTN, DM presents to ED after found down and unresponsive by his neighbor, who subsequently called EMS. Upon arrival, patient found unresponsive on the floor with a serum glucose of 21, patient has a known history of alcohol abuse and delirium tremens. The patient was administered D5 approximate 500 mls during transport without change in mental status/level of consciousness. Pt seen and evaluated in ED was was found to be unable to protect his airway. Pt intubated and placed on vent support. Pt found to have evidence of hypothyroidism. He was started on Synthroid. He has since been in the ICU. instructional media services technician try to locate family, even spoke to the family who he lives with. They themselves were unaware of any family members. After ethics committee meeting on the patient. The decision was made to make him DO NOT RESUSCITATE and to transfer him to hospice. Given his very poor prognosis and poor likelihood of recovery. It was decided that was not his best interest to get trach and PEG. Therefore he'll be transferred to the hospice intubated. Now Awaiting on court ordered /state guardianship. Active meds: Generic Name Dose Route Start Last Admin Trade Name Eva PRN Reason Stop Dose Admin Acetaminophen 650 mg 01/14/17 17:29 02/20/17 01:30 Tylenol FEEDTUBE 650 mg Q6H PRN Administration Non Cardiac Pain Or Temp>101 Lipase/Protease/Amylase 1 each 01/14/17 14:33 Pancreashley Morales 10,500 Unit FEEDTUBE PRN PRN For Clogged Feeding Tube Dextrose 50 gm 01/31/17 23:13 02/17/17 00:10 D50w (25gm) Vial IV 50 gm PRN PRN Administration Hypoglycemia Famotidine 20 mg 01/17/17 10:00 02/25/17 09:35 Pepcid PO 20 mg BID PAOLO Administration Heparin Sodium (Porcine) 5,000 unit 01/10/17 22:00 02/25/17 09:34 Heparin SUB-Q 5,000 unit Q12HR PAOLO Administration Hydralazine HCl 10 mg 01/10/17 13:01 02/02/17 06:14 Apresoline IV 10 mg Q4HR PRN Administration Hypertension Hydrophilic Ointment 1 applic 01/09/17 10:13 Vaseline Lip Therapy TP Q2HR PRN Dry Lips Insulin Aspart 0 units 02/17/17 22:00 02/25/17 07:02 Novolog SUB-Q 6 units Q8HR PAOLO Administration Protocol Insulin Detemir 12 units 02/25/17 10:00 02/25/17 11:44 Levemir SUB-Q 12 units DAILY PAOLO Administration Labetalol HCl 200 mg 01/09/17 13:00 02/25/17 09:34 Normodyne PO 200 mg BID PAOLO Administration Levothyroxine Sodium 100 mcg 01/15/17 06:00 02/25/17 07:02 Synthroid PO 100 mcg DAILY@0600 PAOLO Administration Loperamide HCl 2 mg 02/04/17 10:57 02/16/17 06:33 Imodium A-D PO 2 mg Q2H PRN Administration Diarrhea Multi-Ingred Cream/Lotion/Oil/Oint 1 applic 01/09/17 10:13 Artificial Tears Ophth Oint OU Q4HR PRN Dry Eye(s) Simple Syrup 15 ml 01/14/17 14:33 01/31/17 23:19 Simple Syrup FEEDTUBE 15 ml PRN PRN Administration Hypoglycemia Simple Syrup 30 ml 01/14/17 14:33 Simple Syrup FEEDTUBE PRN PRN Hypoglycemia Sodium Bicarbonate 325 mg 01/14/17 14:33 Sodium Bicarbonate FEEDTUBE PRN PRN For Clogged Feeding Tube Hospitalist Physical - Physical exam Narrative exam: General: comatose HEENT: Moist mucous membranes, , no lymphadenopathy Neck: supple Cardiac: S1-S2 heard Lungs: mechnical ventilated breath sounds Abdomen: soft , nontender, nondistended, bowel sounds positive Extremities: no edema clubbing or cyanosis Skin: no rash or lesions Neurologic: opens eyes, no response to deep painful stimuli, does not follow commend Subjective Date of service: 02/27/17 Principal diagnosis: Acute respiratory failure,encephalopathy Interval history: patient remains comatose, no movement of extremities afebrile o/n, no clinical change Objective - Constitutional Vitals: Vital Signs - 12hr 02/27/17 02/27/17 02/27/17 03:47 04:00 07:49 Temperature 97.1 F L 99.4 F Pulse Rate 69 Respiratory 16 Rate Blood Pressure 151/88 O2 Sat by Pulse 100 Oximetry 02/27/17 02/27/17 02/27/17 08:42 11:52 12:00 Temperature 99.3 F Pulse Rate 68 69 Respiratory Rate Blood Pressure 124/77 139/89 O2 Sat by Pulse 100 100 Oximetry - Labs CBC & Chem 7: 02/09/17 07:24 02/09/17 07:24 Labs: Abnormal lab results 02/26/17 02/26/17 02/27/17 Range/Units 13:49 21:26 05:27 POC Glucose 322 H 244 H 217 H (70-105) 02/27/17 Range/Units 13:51 POC Glucose 239 H (70-105)
[2017-02-27] MEDS: TYLENOL FEEDTUBE PRN (19:34)
[2017-02-28] MEDS: SYNTHROID PO SCH (05:20)
[2017-02-28] MEDS: NOVOLOG SUB-Q SCH (05:50)
[2017-02-28] MEDS: PEPCID PO SCH ×2 (09:32→22:16)
[2017-02-28] MEDS: NORMODYNE PO SCH ×2 (09:33→22:16)
[2017-02-28] MEDS: HEPARIN SUB-Q SCH ×2 (09:33→22:16)
[2017-02-28] MEDS: LEVEMIR (NF) SUB-Q SCH (09:34)
--- NOTE | 2017-02-28 10:33 | Progress Note ---
Assessment and Plan Hypoglycemic brain injury Persistent vegetative state Metabolic encephalopathy Hypoglycemia/hypothermia, resolved Acute respiratory failure mechanical ventilator greater than 96 hours UTI with klebsiella, treated ( Cx + on 01/28) hyponatremia, Hypothyroidism IDDM Hypertension low grade Fever, resolved - Cont supportive care and current medication. Monitor vitals, repeat cx on - no growth - increased dose of long acting insulin to 15 unit - Patient is DNR- needs guardianship from the state to give consent for further management, as has no family to give consent. Brief History: 51 YO Male with CKD,HTN, DM presents to ED after found down and unresponsive by his neighbor, who subsequently called EMS. Upon arrival, patient found unresponsive on the floor with a serum glucose of 21, patient has a known history of alcohol abuse and delirium tremens. The patient was administered D5 approximate 500 mls during transport without change in mental status/level of consciousness. Pt seen and evaluated in ED was was found to be unable to protect his airway. Pt intubated and placed on vent support. Pt found to have evidence of hypothyroidism. He was started on Synthroid. He has since been in the ICU. environmental services technician try to locate family, even spoke to the family who he lives with. They themselves were unaware of any family members. After ethics committee meeting on the patient. The decision was made to make him DO NOT RESUSCITATE and to transfer him to hospice. Given his very poor prognosis and poor likelihood of recovery. It was decided that was not his best interest to get trach and PEG. Therefore he'll be transferred to the hospice intubated. Now Awaiting on court ordered /state guardianship. Active meds: Generic Name Dose Route Start Last Admin Trade Name Eva PRN Reason Stop Dose Admin Acetaminophen 650 mg 01/14/17 17:29 02/20/17 01:30 Tylenol FEEDTUBE 650 mg Q6H PRN Administration Non Cardiac Pain Or Temp>101 Lipase/Protease/Amylase 1 each 01/14/17 14:33 Pancreashley Morales 10,500 Unit FEEDTUBE PRN PRN For Clogged Feeding Tube Dextrose 50 gm 01/31/17 23:13 02/17/17 00:10 D50w (25gm) Vial IV 50 gm PRN PRN Administration Hypoglycemia Famotidine 20 mg 01/17/17 10:00 02/25/17 09:35 Pepcid PO 20 mg BID PAOLO Administration Heparin Sodium (Porcine) 5,000 unit 01/10/17 22:00 02/25/17 09:34 Heparin SUB-Q 5,000 unit Q12HR PAOLO Administration Hydralazine HCl 10 mg 01/10/17 13:01 02/02/17 06:14 Apresoline IV 10 mg Q4HR PRN Administration Hypertension Hydrophilic Ointment 1 applic 01/09/17 10:13 Vaseline Lip Therapy TP Q2HR PRN Dry Lips Insulin Aspart 0 units 02/17/17 22:00 02/25/17 07:02 Novolog SUB-Q 6 units Q8HR PAOLO Administration Protocol Insulin Detemir 12 units 02/25/17 10:00 02/25/17 11:44 Levemir SUB-Q 12 units DAILY PAOLO Administration Labetalol HCl 200 mg 01/09/17 13:00 02/25/17 09:34 Normodyne PO 200 mg BID PAOLO Administration Levothyroxine Sodium 100 mcg 01/15/17 06:00 02/25/17 07:02 Synthroid PO 100 mcg DAILY@0600 PAOLO Administration Loperamide HCl 2 mg 02/04/17 10:57 02/16/17 06:33 Imodium A-D PO 2 mg Q2H PRN Administration Diarrhea Multi-Ingred Cream/Lotion/Oil/Oint 1 applic 01/09/17 10:13 Artificial Tears Ophth Oint OU Q4HR PRN Dry Eye(s) Simple Syrup 15 ml 01/14/17 14:33 01/31/17 23:19 Simple Syrup FEEDTUBE 15 ml PRN PRN Administration Hypoglycemia Simple Syrup 30 ml 01/14/17 14:33 Simple Syrup FEEDTUBE PRN PRN Hypoglycemia Sodium Bicarbonate 325 mg 01/14/17 14:33 Sodium Bicarbonate FEEDTUBE PRN PRN For Clogged Feeding Tube Hospitalist Physical - Physical exam Narrative exam: General: comatose HEENT: Moist mucous membranes, , no lymphadenopathy Neck: supple Cardiac: S1-S2 heard Lungs: mechnical ventilated breath sounds Abdomen: soft , nontender, nondistended, bowel sounds positive Extremities: no edema clubbing or cyanosis Skin: no rash or lesions Neurologic: opens eyes, no response to deep painful stimuli, does not follow commend Subjective Date of service: 02/28/17 Principal diagnosis: Acute respiratory failure,encephalopathy Interval history: patient remains comatose, no movement of extremities afebrile o/n, no clinical change Objective - Constitutional Vitals: Vital Signs - 12hr 02/27/17 02/27/17 02/28/17 22:39 23:27 00:00 Temperature 99.0 F Pulse Rate 71 67 66 Respiratory 12 Rate Blood Pressure 137/85 140/94 142/92 O2 Sat by Pulse 100 100 Oximetry 02/28/17 02/28/17 02/28/17 02:00 03:48 04:00 Temperature 98.9 F Pulse Rate 63 64 Respiratory 13 14 Rate Blood Pressure 141/92 158/96 O2 Sat by Pulse 100 100 Oximetry 02/28/17 02/28/17 02/28/17 07:43 08:00 09:33 Temperature 98.6 F Pulse Rate 68 71 Respiratory Rate Blood Pressure 144/92 132/86 O2 Sat by Pulse 98 98 Oximetry - Labs CBC & Chem 7: 02/09/17 07:24 02/09/17 07:24 Labs: Abnormal lab results 02/27/17 02/27/17 02/28/17 Range/Units 13:51 21:48 05:38 POC Glucose 239 H 254 H 325 H (70-105)
[2017-02-28] MEDS: HumuLIN R SUB-Q SCH ×2 (12:56→18:57)
--- NOTE | 2017-02-28 14:59 | Progress Note ---
Assessment and Plan 51 y/o male found down, concern for sepsis and now encephalopathic requiring mechanical ventilation. No New recs for today. 1. continue supportive care 2. 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 I am aware that he is an AND but trach will not fix this problem and is not in my professional opinion the right thing to do for this patient. Most likely he will never be weaned from the vent and will remain in a persistent vegatative state. CCT 31 minutes. Subjective Date of service: 02/28/17 Principal diagnosis: Acute respiratory failure,encephalopathy Interval history: Patient continues to have APNEA on PSV trials. lasted today about 5 hours. Eyes open, but not following any commands. Remainder is negative. Objective Vital Signs - 12hr 02/28/17 02/28/17 02/28/17 03:48 04:00 07:43 Temperature 98.9 F Pulse Rate 64 68 Respiratory 14 Rate Blood Pressure 158/96 144/92 O2 Sat by Pulse 100 98 Oximetry 02/28/17 02/28/17 02/28/17 08:00 09:33 10:00 Temperature 98.6 F Pulse Rate 71 64 Respiratory Rate Blood Pressure 132/86 O2 Sat by Pulse 98 Oximetry 02/28/17 02/28/17 10:38 12:00 Temperature 97.2 F L Pulse Rate 64 Respiratory 16 Rate Blood Pressure 141/86 O2 Sat by Pulse 98 97 Oximetry Constitutional: no acute distress, alert, other (orally intubated, on vent support) Eyes: non-icteric ENT: oropharynx moist Neck: supple, no JVD Effort: normal Ascultation: Bilateral: clear, diminished breath sounds Cardiovascular: regular rate and rhythm Gastrointestinal: normoactive bowel sounds, soft, non-tender, non-distended Integumentary: normal Extremities: no cyanosis, no edema, pink and warm Neurologic: other (awake spontaneously, not not following any commands. Fixed stare.) Psychiatric: other (unable to obtain) CBC and BMP: 02/09/17 07:24 02/09/17 07:24 ABG, PT/INR, D-dimer: ABG POC ABG pH 7.442 (7.35-7.45) 01/31/17 18:55 ABG pH 7.420 pH Units (7.350-7.450) 01/17/17 04:35 POC ABG pCO2 32.8 (35-45) L 01/31/17 18:55 ABG pCO2 34.5 mm Hg 01/17/17 04:35 POC ABG pO2 82 (80-105) 01/31/17 18:55 ABG pO2 160.3 mm Hg (80.0-90.0) H 01/17/17 04:35 POC ABG HCO3 22.4 01/31/17 18:55 POC ABG Total CO2 23 01/31/17 18:55 POC ABG O2 Sat 97 01/31/17 18:55 ABG O2 Saturation 99.0 % (95.0-99.0) 01/17/17 04:35 PT/INR, D-dimer PT 14.1 Sec. (12.2-14.9) 01/17/17 04:10 INR 1.04 (0.87-1.13) 01/17/17 04:10 Abnormal lab findings: Abnormal Labs 01/09/17 01/09/17 01/09/17 10:16 10:16 10:16 WBC RBC Hgb 9.7 L Hct 28.4 L MCV 76 L MCH 26 L RDW 17.2 H Plt Count 448 H Lymph % (Auto) [place] % (Auto) Eos % (Auto) Seg Neutrophils % 79.5 H Seg Neuts % (Manual) Lymphocytes % (Manual) Seg Neutrophils # Seg Neutrophils # Man Lymphocytes # (Manual) APTT 39.6 H POC ABG pH ABG pH POC ABG pCO2 POC ABG pO2 ABG pO2 ABG HCO3 ABG Base Excess ABG Hemoglobin VBG pH Oxyhemoglobin Sodium 132 L Potassium Chloride 96.7 L Carbon Dioxide 21 L BUN 34 H Creatinine Glucose POC Glucose Lactic Acid Calcium 8.3 L AST Alkaline Phosphatase 151 H CK-MB (CK-2) 7.1 H CK-MB (CK-2) Rel Index 5.2 H Albumin 3.3 L TSH Urine WBC (Auto) Salicylates 01/09/17 01/09/17 01/09/17 10:16 10:16 10:16 WBC RBC Hgb Hct MCV MCH RDW Plt Count Lymph % (Auto) [place] % (Auto) Eos % (Auto) Seg Neutrophils % Seg Neuts % (Manual) Lymphocytes % (Manual) Seg Neutrophils # Seg Neutrophils # Man Lymphocytes # (Manual) APTT POC ABG pH ABG pH POC ABG pCO2 POC ABG pO2 ABG pO2 ABG HCO3 ABG Base Excess ABG Hemoglobin VBG pH 7.284 L Oxyhemoglobin Sodium Potassium Chloride Carbon Dioxide BUN Creatinine Glucose POC Glucose Lactic Acid Calcium AST Alkaline Phosphatase CK-MB (CK-2) CK-MB (CK-2) Rel Index Albumin TSH 52.800 H Urine WBC (Auto) Salicylates < 0.3 L 01/09/17 01/09/17 01/09/17 10:23 11:14 12:49 WBC RBC Hgb Hct MCV MCH RDW Plt Count Lymph % (Auto) [place] % (Auto) Eos % (Auto) Seg Neutrophils % Seg Neuts % (Manual) Lymphocytes % (Manual) Seg Neutrophils # Seg Neutrophils # Man Lymphocytes # (Manual) APTT POC ABG pH ABG pH POC ABG pCO2 POC ABG pO2 643 H ABG pO2 ABG HCO3 ABG Base Excess ABG Hemoglobin VBG pH Oxyhemoglobin Sodium Potassium Chloride Carbon Dioxide BUN Creatinine Glucose POC Glucose < 40 L Lactic Acid Calcium AST Alkaline Phosphatase CK-MB (CK-2) CK-MB (CK-2) Rel Index Albumin TSH Urine WBC (Auto) 61.0 H Salicylates 01/09/17 01/09/17 01/09/17 13:13 14:21 15:09 WBC RBC Hgb Hct MCV MCH RDW Plt Count Lymph % (Auto) [place] % (Auto) Eos % (Auto) Seg Neutrophils % Seg Neuts % (Manual) Lymphocytes % (Manual) Seg Neutrophils # Seg Neutrophils # Man Lymphocytes # (Manual) APTT POC ABG pH ABG pH POC ABG pCO2 POC ABG pO2 ABG pO2 ABG HCO3 ABG Base Excess ABG Hemoglobin VBG pH Oxyhemoglobin Sodium Potassium Chloride Carbon Dioxide BUN Creatinine Glucose POC Glucose 128 H 65 L 120 H Lactic Acid Calcium AST Alkaline Phosphatase CK-MB (CK-2) CK-MB (CK-2) Rel Index Albumin TSH Urine WBC (Auto) Salicylates 01/09/17 01/09/17 01/10/17 16:28 17:14 04:30 WBC 24.1 H RBC 3.38 L Hgb 8.5 L Hct 26.0 L MCV 77 L MCH 25 L RDW 17.9 H Plt Count 474 H Lymph % (Auto) [place] % (Auto) Eos % (Auto) Seg Neutrophils % Seg Neuts % (Manual) 88.0 H Lymphocytes % (Manual) 4.0 L Seg Neutrophils # Seg Neutrophils # Man 21.2 H Lymphocytes # (Manual) 1.0 L APTT POC ABG pH ABG pH POC ABG pCO2 POC ABG pO2 ABG pO2 ABG HCO3 ABG Base Excess ABG Hemoglobin VBG pH Oxyhemoglobin Sodium Potassium Chloride Carbon Dioxide BUN Creatinine Glucose POC Glucose 44 L 112 H Lactic Acid Calcium AST Alkaline Phosphatase CK-MB (CK-2) CK-MB (CK-2) Rel Index Albumin TSH Urine WBC (Auto) Salicylates 01/10/17 01/10/17 01/10/17 04:30 05:41 05:45 WBC RBC Hgb Hct MCV MCH RDW Plt Count Lymph % (Auto) [place] % (Auto) Eos % (Auto) Seg Neutrophils % Seg Neuts % (Manual) Lymphocytes % (Manual) Seg Neutrophils # Seg Neutrophils # Man Lymphocytes # (Manual) APTT POC ABG pH ABG pH POC ABG pCO2 26.6 L POC ABG pO2 207 H ABG pO2 ABG HCO3 ABG Base Excess ABG Hemoglobin VBG pH Oxyhemoglobin Sodium Potassium Chloride Carbon Dioxide 17 L BUN 27 H Creatinine Glucose POC Glucose 68 L Lactic Acid Calcium 7.5 L AST Alkaline Phosphatase CK-MB (CK-2) CK-MB (CK-2) Rel Index Albumin TSH Urine WBC (Auto) Salicylates 01/10/17 01/10/17 01/10/17 07:47 10:50 13:41 WBC RBC Hgb Hct MCV MCH RDW Plt Count Lymph % (Auto) [place] % (Auto) Eos % (Auto) Seg Neutrophils % Seg Neuts % (Manual) Lymphocytes % (Manual) Seg Neutrophils # Seg Neutrophils # Man Lymphocytes # (Manual) APTT POC ABG pH ABG pH POC ABG pCO2 POC ABG pO2 ABG pO2 ABG HCO3 ABG Base Excess ABG Hemoglobin VBG pH Oxyhemoglobin Sodium Potassium Chloride Carbon Dioxide BUN Creatinine Glucose POC Glucose 148 H 165 H 114 H Lactic Acid Calcium AST Alkaline Phosphatase CK-MB (CK-2) CK-MB (CK-2) Rel Index Albumin TSH Urine WBC (Auto) Salicylates 01/10/17 01/10/17 01/10/17 20:20 21:39 23:24 WBC RBC Hgb Hct MCV MCH RDW Plt Count Lymph % (Auto) [place] % (Auto) Eos % (Auto) Seg Neutrophils % Seg Neuts % (Manual) Lymphocytes % (Manual) Seg Neutrophils # Seg Neutrophils # Man Lymphocytes # (Manual) APTT POC ABG pH ABG pH POC ABG pCO2 POC ABG pO2 ABG pO2 ABG HCO3 ABG Base Excess ABG Hemoglobin VBG pH Oxyhemoglobin Sodium Potassium Chloride Carbon Dioxide BUN Creatinine Glucose POC Glucose 150 H 175 H 155 H Lactic Acid Calcium AST Alkaline Phosphatase CK-MB (CK-2) CK-MB (CK-2) Rel Index Albumin TSH Urine WBC (Auto) Salicylates 01/11/17 01/11/17 01/11/17 00:19 04:06 05:20 WBC 15.2 H RBC 3.40 L Hgb 8.9 L Hct 26.3 L MCV 78 L MCH 26 L RDW 18.6 H Plt Count 462 H Lymph % (Auto) 13.2 L [place] % (Auto) Eos % (Auto) Seg Neutrophils % 80.8 H Seg Neuts % (Manual) Lymphocytes % (Manual) Seg Neutrophils # 12.3 H Seg Neutrophils # Man Lymphocytes # (Manual) APTT POC ABG pH 7.463 H ABG pH POC ABG pCO2 26.2 L POC ABG pO2 185 H ABG pO2 ABG HCO3 ABG Base Excess ABG Hemoglobin VBG pH Oxyhemoglobin Sodium Potassium Chloride Carbon Dioxide BUN Creatinine Glucose POC Glucose 163 H Lactic Acid Calcium AST Alkaline Phosphatase CK-MB (CK-2) CK-MB (CK-2) Rel Index Albumin TSH Urine WBC (Auto) Salicylates 01/11/17 01/11/17 01/11/17 05:20 06:21 07:57 WBC RBC Hgb Hct MCV MCH RDW Plt Count Lymph % (Auto) [place] % (Auto) Eos % (Auto) Seg Neutrophils % Seg Neuts % (Manual) Lymphocytes % (Manual) Seg Neutrophils # Seg Neutrophils # Man Lymphocytes # (Manual) APTT POC ABG pH ABG pH POC ABG pCO2 POC ABG pO2 ABG pO2 ABG HCO3 ABG Base Excess ABG Hemoglobin VBG pH Oxyhemoglobin Sodium Potassium 3.4 L Chloride 111.5 H Carbon Dioxide 17 L BUN Creatinine Glucose 147 H POC Glucose 139 H 188 H Lactic Acid Calcium 8.0 L AST Alkaline Phosphatase CK-MB (CK-2) CK-MB (CK-2) Rel Index Albumin TSH Urine WBC (Auto) Salicylates 01/11/17 01/11/17 01/11/17 11:46 16:50 23:15 WBC RBC Hgb Hct MCV MCH RDW Plt Count Lymph % (Auto) [place] % (Auto) Eos % (Auto) Seg Neutrophils % Seg Neuts % (Manual) Lymphocytes % (Manual) Seg Neutrophils # Seg Neutrophils # Man Lymphocytes # (Manual) APTT POC ABG pH ABG pH POC ABG pCO2 POC ABG pO2 ABG pO2 ABG HCO3 ABG Base Excess ABG Hemoglobin VBG pH Oxyhemoglobin Sodium Potassium Chloride Carbon Dioxide BUN Creatinine Glucose POC Glucose 199 H 235 H 155 H Lactic Acid Calcium AST Alkaline Phosphatase CK-MB (CK-2) CK-MB (CK-2) Rel Index Albumin TSH Urine WBC (Auto) Salicylates 01/12/17 01/12/17 01/12/17 05:02 06:56 14:50 WBC RBC Hgb Hct MCV MCH RDW Plt Count Lymph % (Auto) [place] % (Auto) Eos % (Auto) Seg Neutrophils % Seg Neuts % (Manual) Lymphocytes % (Manual) Seg Neutrophils # Seg Neutrophils # Man Lymphocytes # (Manual) APTT POC ABG pH ABG pH POC ABG pCO2 28.0 L POC ABG pO2 178 H ABG pO2 ABG HCO3 ABG Base Excess ABG Hemoglobin VBG pH Oxyhemoglobin Sodium Potassium Chloride Carbon Dioxide BUN Creatinine Glucose POC Glucose 119 H 164 H Lactic Acid Calcium AST Alkaline Phosphatase CK-MB (CK-2) CK-MB (CK-2) Rel Index Albumin TSH Urine WBC (Auto) Salicylates 01/13/17 01/13/17 01/13/17 03:37 03:37 04:26 WBC RBC 3.61 L Hgb 9.3 L Hct 28.0 L MCV 78 L MCH 26 L RDW 18.2 H Plt Count Lymph % (Auto) [place] % (Auto) Eos % (Auto) Seg Neutrophils % Seg Neuts % (Manual) Lymphocytes % (Manual) Seg Neutrophils # Seg Neutrophils # Man Lymphocytes # (Manual) APTT POC ABG pH 7.485 H ABG pH POC ABG pCO2 25.4 L POC ABG pO2 73 L ABG pO2 ABG HCO3 ABG Base Excess ABG Hemoglobin VBG pH Oxyhemoglobin Sodium Potassium Chloride 112.4 H Carbon Dioxide 19 L BUN Creatinine Glucose 118 H POC Glucose Lactic Acid Calcium 8.0 L AST Alkaline Phosphatase CK-MB (CK-2) CK-MB (CK-2) Rel Index Albumin TSH Urine WBC (Auto) Salicylates 01/13/17 01/13/17 01/13/17 06:15 11:50 17:31 WBC RBC Hgb Hct MCV MCH RDW Plt Count Lymph % (Auto) [place] % (Auto) Eos % (Auto) Seg Neutrophils % Seg Neuts % (Manual) Lymphocytes % (Manual) Seg Neutrophils # Seg Neutrophils # Man Lymphocytes # (Manual) APTT POC ABG pH ABG pH POC ABG pCO2 POC ABG pO2 ABG pO2 ABG HCO3 ABG Base Excess ABG Hemoglobin VBG pH Oxyhemoglobin Sodium Potassium Chloride Carbon Dioxide BUN Creatinine Glucose POC Glucose 116 H 171 H 203 H Lactic Acid Calcium AST Alkaline Phosphatase CK-MB (CK-2) CK-MB (CK-2) Rel Index Albumin TSH Urine WBC (Auto) Salicylates 01/14/17 01/14/17 01/14/17 00:02 04:50 04:50 WBC RBC 3.32 L Hgb 8.5 L Hct 26.1 L MCV 79 L MCH 26 L RDW 18.2 H Plt Count Lymph % (Auto) [place] % (Auto) 9.0 H Eos % (Auto) Seg Neutrophils % Seg Neuts % (Manual) Lymphocytes % (Manual) Seg Neutrophils # Seg Neutrophils # Man Lymphocytes # (Manual) APTT POC ABG pH ABG pH POC ABG pCO2 POC ABG pO2 ABG pO2 ABG HCO3 ABG Base Excess ABG Hemoglobin VBG pH Oxyhemoglobin Sodium Potassium Chloride 112.5 H Carbon Dioxide BUN Creatinine Glucose 149 H POC Glucose 157 H Lactic Acid Calcium 8.1 L AST Alkaline Phosphatase CK-MB (CK-2) CK-MB (CK-2) Rel Index Albumin TSH Urine WBC (Auto) Salicylates 01/14/17 01/14/17 01/14/17 05:10 11:27 14:07 WBC RBC Hgb Hct MCV MCH RDW Plt Count Lymph % (Auto) [place] % (Auto) Eos % (Auto) Seg Neutrophils % Seg Neuts % (Manual) Lymphocytes % (Manual) Seg Neutrophils # Seg Neutrophils # Man Lymphocytes # (Manual) APTT POC ABG pH ABG pH POC ABG pCO2 POC ABG pO2 ABG pO2 ABG HCO3 ABG Base Excess ABG Hemoglobin VBG pH Oxyhemoglobin Sodium Potassium Chloride Carbon Dioxide BUN Creatinine Glucose POC Glucose 176 H 147 H Lactic Acid Calcium AST Alkaline Phosphatase CK-MB (CK-2) CK-MB (CK-2) Rel Index Albumin TSH Urine WBC (Auto) 53.0 H Salicylates 01/14/17 01/15/17 01/15/17 16:52 00:04 05:26 WBC RBC Hgb Hct MCV MCH RDW Plt Count Lymph % (Auto) [place] % (Auto) Eos % (Auto) Seg Neutrophils % Seg Neuts % (Manual) Lymphocytes % (Manual) Seg Neutrophils # Seg Neutrophils # Man Lymphocytes # (Manual) APTT POC ABG pH ABG pH POC ABG pCO2 POC ABG pO2 ABG pO2 ABG HCO3 ABG Base Excess ABG Hemoglobin VBG pH Oxyhemoglobin Sodium Potassium Chloride Carbon Dioxide BUN Creatinine Glucose POC Glucose 131 H 193 H 215 H Lactic Acid Calcium AST Alkaline Phosphatase CK-MB (CK-2) CK-MB (CK-2) Rel Index Albumin TSH Urine WBC (Auto) Salicylates 01/15/17 01/15/17 01/15/17 11:49 17:47 21:33 WBC RBC Hgb Hct MCV MCH RDW Plt Count Lymph % (Auto) [place] % (Auto) Eos % (Auto) Seg Neutrophils % Seg Neuts % (Manual) Lymphocytes % (Manual) Seg Neutrophils # Seg Neutrophils # Man Lymphocytes # (Manual) APTT POC ABG pH ABG pH POC ABG pCO2 POC ABG pO2 ABG pO2 ABG HCO3 ABG Base Excess ABG Hemoglobin VBG pH Oxyhemoglobin Sodium Potassium Chloride Carbon Dioxide BUN Creatinine Glucose POC Glucose 121 H 211 H 275 H Lactic Acid Calcium AST Alkaline Phosphatase CK-MB (CK-2) CK-MB (CK-2) Rel Index Albumin TSH Urine WBC (Auto) Salicylates 01/16/17 01/16/17 01/16/17 04:30 05:28 13:45 WBC RBC Hgb Hct MCV MCH RDW Plt Count Lymph % (Auto) [place] % (Auto) Eos % (Auto) Seg Neutrophils % Seg Neuts % (Manual) Lymphocytes % (Manual) Seg Neutrophils # Seg Neutrophils # Man Lymphocytes # (Manual) APTT POC ABG pH ABG pH 7.457 H POC ABG pCO2 POC ABG pO2 ABG pO2 55.1 L ABG HCO3 19.4 L ABG Base Excess -4.0 L ABG Hemoglobin 6.8 L VBG pH Oxyhemoglobin 94.9 L Sodium Potassium Chloride Carbon Dioxide BUN Creatinine Glucose POC Glucose 271 H 236 H Lactic Acid Calcium AST Alkaline Phosphatase CK-MB (CK-2) CK-MB (CK-2) Rel Index Albumin TSH Urine WBC (Auto) Salicylates 01/16/17 01/17/17 01/17/17 21:39 04:10 04:10 WBC 4.4 L RBC 2.98 L Hgb 7.7 L Hct 23.3 L MCV 78 L MCH 26 L RDW 18.1 H Plt Count Lymph % (Auto) [place] % (Auto) Eos % (Auto) Seg Neutrophils % Seg Neuts % (Manual) Lymphocytes % (Manual) Seg Neutrophils # Seg Neutrophils # Man Lymphocytes # (Manual) APTT POC ABG pH ABG pH POC ABG pCO2 POC ABG pO2 ABG pO2 ABG HCO3 ABG Base Excess ABG Hemoglobin VBG pH Oxyhemoglobin Sodium Potassium 3.3 L Chloride 108.7 H Carbon Dioxide 20 L BUN 8 L Creatinine Glucose 202 H POC Glucose 258 H Lactic Acid Calcium 7.6 L AST Alkaline Phosphatase CK-MB (CK-2) CK-MB (CK-2) Rel Index Albumin TSH Urine WBC (Auto) Salicylates 01/17/17 01/17/17 01/17/17 04:35 12:23 16:01 WBC RBC Hgb Hct MCV MCH RDW Plt Count Lymph % (Auto) [place] % (Auto) Eos % (Auto) Seg Neutrophils % Seg Neuts % (Manual) Lymphocytes % (Manual) Seg Neutrophils # Seg Neutrophils # Man Lymphocytes # (Manual) APTT POC ABG pH ABG pH POC ABG pCO2 POC ABG pO2 ABG pO2 160.3 H ABG HCO3 ABG Base Excess -2.3 L ABG Hemoglobin 7.9 L VBG pH Oxyhemoglobin Sodium Potassium Chloride Carbon Dioxide BUN Creatinine Glucose POC Glucose 321 H 239 H Lactic Acid Calcium AST Alkaline Phosphatase CK-MB (CK-2) CK-MB (CK-2) Rel Index Albumin TSH Urine WBC (Auto) Salicylates 01/18/17 01/18/17 01/18/17 05:07 12:09 17:54 WBC RBC Hgb Hct MCV MCH RDW Plt Count Lymph % (Auto) [place] % (Auto) Eos % (Auto) Seg Neutrophils % Seg Neuts % (Manual) Lymphocytes % (Manual) Seg Neutrophils # Seg Neutrophils # Man Lymphocytes # (Manual) APTT POC ABG pH ABG pH POC ABG pCO2 POC ABG pO2 ABG pO2 ABG HCO3 ABG Base Excess ABG Hemoglobin VBG pH Oxyhemoglobin Sodium Potassium Chloride Carbon Dioxide BUN Creatinine Glucose POC Glucose 155 H 203 H 132 H Lactic Acid Calcium AST Alkaline Phosphatase CK-MB (CK-2) CK-MB (CK-2) Rel Index Albumin TSH Urine WBC (Auto) Salicylates 01/18/17 01/19/17 01/19/17 23:43 04:28 12:11 WBC RBC Hgb Hct MCV MCH RDW Plt Count Lymph % (Auto) [place] % (Auto) Eos % (Auto) Seg Neutrophils % Seg Neuts % (Manual) Lymphocytes % (Manual) Seg Neutrophils # Seg Neutrophils # Man Lymphocytes # (Manual) APTT POC ABG pH ABG pH POC ABG pCO2 POC ABG pO2 ABG pO2 ABG HCO3 ABG Base Excess ABG Hemoglobin VBG pH Oxyhemoglobin Sodium Potassium Chloride Carbon Dioxide BUN Creatinine Glucose POC Glucose 125 H 182 H 153 H Lactic Acid Calcium AST Alkaline Phosphatase CK-MB (CK-2) CK-MB (CK-2) Rel Index Albumin TSH Urine WBC (Auto) Salicylates 01/19/17 01/20/17 01/20/17 17:23 00:12 05:44 WBC RBC Hgb Hct MCV MCH RDW Plt Count Lymph % (Auto) [place] % (Auto) Eos % (Auto) Seg Neutrophils % Seg Neuts % (Manual) Lymphocytes % (Manual) Seg Neutrophils # Seg Neutrophils # Man Lymphocytes # (Manual) APTT POC ABG pH ABG pH POC ABG pCO2 POC ABG pO2 ABG pO2 ABG HCO3 ABG Base Excess ABG Hemoglobin VBG pH Oxyhemoglobin Sodium Potassium Chloride Carbon Dioxide BUN Creatinine Glucose POC Glucose 66 L 139 H 176 H Lactic Acid Calcium AST Alkaline Phosphatase CK-MB (CK-2) CK-MB (CK-2) Rel Index Albumin TSH Urine WBC (Auto) Salicylates 01/20/17 01/20/17 01/20/17 11:48 17:42 23:43 WBC RBC Hgb Hct MCV MCH RDW Plt Count Lymph % (Auto) [place] % (Auto) Eos % (Auto) Seg Neutrophils % Seg Neuts % (Manual) Lymphocytes % (Manual) Seg Neutrophils # Seg Neutrophils # Man Lymphocytes # (Manual) APTT POC ABG pH ABG pH POC ABG pCO2 POC ABG pO2 ABG pO2 ABG HCO3 ABG Base Excess ABG Hemoglobin VBG pH Oxyhemoglobin Sodium Potassium Chloride Carbon Dioxide BUN Creatinine Glucose POC Glucose 218 H 132 H 178 H Lactic Acid Calcium AST Alkaline Phosphatase CK-MB (CK-2) CK-MB (CK-2) Rel Index Albumin TSH Urine WBC (Auto) Salicylates 01/21/17 01/21/17 01/21/17 05:34 11:17 23:37 WBC RBC Hgb Hct MCV MCH RDW Plt Count Lymph % (Auto) [place] % (Auto) Eos % (Auto) Seg Neutrophils % Seg Neuts % (Manual) Lymphocytes % (Manual) Seg Neutrophils # Seg Neutrophils # Man Lymphocytes # (Manual) APTT POC ABG pH ABG pH POC ABG pCO2 POC ABG pO2 ABG pO2 ABG HCO3 ABG Base Excess ABG Hemoglobin VBG pH Oxyhemoglobin Sodium Potassium Chloride Carbon Dioxide BUN Creatinine Glucose POC Glucose 106 H 213 H 140 H Lactic Acid Calcium AST Alkaline Phosphatase CK-MB (CK-2) CK-MB (CK-2) Rel Index Albumin TSH Urine WBC (Auto) Salicylates 01/22/17 01/22/17 01/22/17 04:00 04:00 04:58 WBC RBC 3.26 L Hgb 8.3 L Hct 25.5 L MCV 78 L MCH 25 L RDW 17.9 H Plt Count Lymph % (Auto) [place] % (Auto) 7.9 H Eos % (Auto) 6.2 H Seg Neutrophils % Seg Neuts % (Manual) Lymphocytes % (Manual) Seg Neutrophils # Seg Neutrophils # Man Lymphocytes # (Manual) APTT POC ABG pH ABG pH POC ABG pCO2 POC ABG pO2 ABG pO2 ABG HCO3 ABG Base Excess ABG Hemoglobin VBG pH Oxyhemoglobin Sodium Potassium Chloride 95.5 L Carbon Dioxide 31 H D BUN Creatinine Glucose 134 H POC Glucose 146 H Lactic Acid Calcium AST 44 H Alkaline Phosphatase 379 H CK-MB (CK-2) CK-MB (CK-2) Rel Index Albumin 2.7 L TSH Urine WBC (Auto) Salicylates 01/22/17 01/22/17 01/22/17 12:12 18:12 23:39 WBC RBC Hgb Hct MCV MCH RDW Plt Count Lymph % (Auto) [place] % (Auto) Eos % (Auto) Seg Neutrophils % Seg Neuts % (Manual) Lymphocytes % (Manual) Seg Neutrophils # Seg Neutrophils # Man Lymphocytes # (Manual) APTT POC ABG pH ABG pH POC ABG pCO2 POC ABG pO2 ABG pO2 ABG HCO3 ABG Base Excess ABG Hemoglobin VBG pH Oxyhemoglobin Sodium Potassium Chloride Carbon Dioxide BUN Creatinine Glucose POC Glucose 255 H 182 H 134 H Lactic Acid Calcium AST Alkaline Phosphatase CK-MB (CK-2) CK-MB (CK-2) Rel Index Albumin TSH Urine WBC (Auto) Salicylates 01/23/17 01/23/17 01/23/17 04:43 12:12 17:36 WBC RBC Hgb Hct MCV MCH RDW Plt Count Lymph % (Auto) [place] % (Auto) Eos % (Auto) Seg Neutrophils % Seg Neuts % (Manual) Lymphocytes % (Manual) Seg Neutrophils # Seg Neutrophils # Man Lymphocytes # (Manual) APTT POC ABG pH ABG pH POC ABG pCO2 POC ABG pO2 ABG pO2 ABG HCO3 ABG Base Excess ABG Hemoglobin VBG pH Oxyhemoglobin Sodium Potassium Chloride Carbon Dioxide BUN Creatinine Glucose POC Glucose 218 H 128 H 156 H Lactic Acid Calcium AST Alkaline Phosphatase CK-MB (CK-2) CK-MB (CK-2) Rel Index Albumin TSH Urine WBC (Auto) Salicylates 01/24/17 01/24/17 01/24/17 00:08 05:16 11:40 WBC RBC Hgb Hct MCV MCH RDW Plt Count Lymph % (Auto) [place] % (Auto) Eos % (Auto) Seg Neutrophils % Seg Neuts % (Manual) Lymphocytes % (Manual) Seg Neutrophils # Seg Neutrophils # Man Lymphocytes # (Manual) APTT POC ABG pH ABG pH POC ABG pCO2 POC ABG pO2 ABG pO2 ABG HCO3 ABG Base Excess ABG Hemoglobin VBG pH Oxyhemoglobin Sodium Potassium Chloride Carbon Dioxide BUN Creatinine Glucose POC Glucose 129 H 169 H 187 H Lactic Acid Calcium AST Alkaline Phosphatase CK-MB (CK-2) CK-MB (CK-2) Rel Index Albumin TSH Urine WBC (Auto) Salicylates 01/24/17 01/24/17 01/25/17 17:43 23:23 04:56 WBC RBC Hgb Hct MCV MCH RDW Plt Count Lymph % (Auto) [place] % (Auto) Eos % (Auto) Seg Neutrophils % Seg Neuts % (Manual) Lymphocytes % (Manual) Seg Neutrophils # Seg Neutrophils # Man Lymphocytes # (Manual) APTT POC ABG pH ABG pH POC ABG pCO2 POC ABG pO2 ABG pO2 ABG HCO3 ABG Base Excess ABG Hemoglobin VBG pH Oxyhemoglobin Sodium Potassium Chloride Carbon Dioxide BUN Creatinine Glucose POC Glucose 215 H 222 H 210 H Lactic Acid Calcium AST Alkaline Phosphatase CK-MB (CK-2) CK-MB (CK-2) Rel Index Albumin TSH Urine WBC (Auto) Salicylates 01/25/17 01/25/17 01/26/17 11:52 17:37 00:02 WBC RBC Hgb Hct MCV MCH RDW Plt Count Lymph % (Auto) [place] % (Auto) Eos % (Auto) Seg Neutrophils % Seg Neuts % (Manual) Lymphocytes % (Manual) Seg Neutrophils # Seg Neutrophils # Man Lymphocytes # (Manual) APTT POC ABG pH ABG pH POC ABG pCO2 POC ABG pO2 ABG pO2 ABG HCO3 ABG Base Excess ABG Hemoglobin VBG pH Oxyhemoglobin Sodium Potassium Chloride Carbon Dioxide BUN Creatinine Glucose POC Glucose 284 H 218 H 192 H Lactic Acid Calcium AST Alkaline Phosphatase CK-MB (CK-2) CK-MB (CK-2) Rel Index Albumin TSH Urine WBC (Auto) Salicylates 01/26/17 01/26/17 01/26/17 05:33 12:17 17:50 WBC RBC Hgb Hct MCV MCH RDW Plt Count Lymph % (Auto) [place] % (Auto) Eos % (Auto) Seg Neutrophils % Seg Neuts % (Manual) Lymphocytes % (Manual) Seg Neutrophils # Seg Neutrophils # Man Lymphocytes # (Manual) APTT POC ABG pH ABG pH POC ABG pCO2 POC ABG pO2 ABG pO2 ABG HCO3 ABG Base Excess ABG Hemoglobin VBG pH Oxyhemoglobin Sodium Potassium Chloride Carbon Dioxide BUN Creatinine Glucose POC Glucose 199 H 227 H 229 H Lactic Acid Calcium AST Alkaline Phosphatase CK-MB (CK-2) CK-MB (CK-2) Rel Index Albumin TSH Urine WBC (Auto) Salicylates 01/26/17 01/27/17 01/27/17 23:57 05:31 11:42 WBC RBC Hgb Hct MCV MCH RDW Plt Count Lymph % (Auto) [place] % (Auto) Eos % (Auto) Seg Neutrophils % Seg Neuts % (Manual) Lymphocytes % (Manual) Seg Neutrophils # Seg Neutrophils # Man Lymphocytes # (Manual) APTT POC ABG pH ABG pH POC ABG pCO2 POC ABG pO2 ABG pO2 ABG HCO3 ABG Base Excess ABG Hemoglobin VBG pH Oxyhemoglobin Sodium Potassium Chloride Carbon Dioxide BUN Creatinine Glucose POC Glucose 186 H 285 H 260 H Lactic Acid Calcium AST Alkaline Phosphatase CK-MB (CK-2) CK-MB (CK-2) Rel Index Albumin TSH Urine WBC (Auto) Salicylates 01/27/17 01/27/17 01/27/17 17:47 23:58 Unknown WBC 12.1 H RBC 3.28 L Hgb 8.5 L Hct 25.5 L MCV 78 L MCH 26 L RDW 16.8 H Plt Count 601 H Lymph % (Auto) [place] % (Auto) Eos % (Auto) Seg Neutrophils % Seg Neuts % (Manual) Lymphocytes % (Manual) Seg Neutrophils # Seg Neutrophils # Man Lymphocytes # (Manual) APTT POC ABG pH ABG pH POC ABG pCO2 POC ABG pO2 ABG pO2 ABG HCO3 ABG Base Excess ABG Hemoglobin VBG pH Oxyhemoglobin Sodium Potassium Chloride Carbon Dioxide BUN Creatinine Glucose POC Glucose 329 H 225 H Lactic Acid Calcium AST Alkaline Phosphatase CK-MB (CK-2) CK-MB (CK-2) Rel Index Albumin TSH Urine WBC (Auto) Salicylates 01/27/17 01/28/17 01/28/17 Unknown 03:44 03:44 WBC RBC 3.14 L Hgb 8.2 L Hct 24.1 L MCV 77 L MCH 26 L RDW 16.9 H Plt Count 567 H Lymph % (Auto) [place] % (Auto) Eos % (Auto) Seg Neutrophils % Seg Neuts % (Manual) Lymphocytes % (Manual) Seg Neutrophils # Seg Neutrophils # Man Lymphocytes # (Manual) APTT POC ABG pH ABG pH POC ABG pCO2 POC ABG pO2 ABG pO2 ABG HCO3 ABG Base Excess ABG Hemoglobin VBG pH Oxyhemoglobin Sodium 128 L Potassium 5.4 H Chloride 87.5 L Carbon Dioxide BUN 44 H 42 H Creatinine Glucose 250 H 128 H POC Glucose Lactic Acid Calcium AST Alkaline Phosphatase CK-MB (CK-2) CK-MB (CK-2) Rel Index Albumin TSH Urine WBC (Auto) Salicylates 01/28/17 01/28/17 01/28/17 11:43 16:47 17:52 WBC RBC Hgb Hct MCV MCH RDW Plt Count Lymph % (Auto) [place] % (Auto) Eos % (Auto) Seg Neutrophils % Seg Neuts % (Manual) Lymphocytes % (Manual) Seg Neutrophils # Seg Neutrophils # Man Lymphocytes # (Manual) APTT POC ABG pH ABG pH POC ABG pCO2 POC ABG pO2 ABG pO2 ABG HCO3 ABG Base Excess ABG Hemoglobin VBG pH Oxyhemoglobin Sodium Potassium Chloride Carbon Dioxide BUN Creatinine Glucose POC Glucose 351 H 249 H Lactic Acid Calcium AST Alkaline Phosphatase CK-MB (CK-2) CK-MB (CK-2) Rel Index Albumin TSH Urine WBC (Auto) > 182.0 H Salicylates 01/29/17 01/29/17 01/29/17 05:25 05:25 09:32 WBC 13.6 H RBC 3.25 L Hgb 8.3 L Hct 25.1 L MCV 77 L MCH 26 L RDW 16.8 H Plt Count 514 H Lymph % (Auto) [place] % (Auto) Eos % (Auto) Seg Neutrophils % Seg Neuts % (Manual) Lymphocytes % (Manual) Seg Neutrophils # Seg Neutrophils # Man Lymphocytes # (Manual) APTT POC ABG pH ABG pH POC ABG pCO2 POC ABG pO2 ABG pO2 ABG HCO3 ABG Base Excess ABG Hemoglobin VBG pH Oxyhemoglobin Sodium Potassium Chloride 97.8 L Carbon Dioxide BUN 34 H Creatinine Glucose 222 H POC Glucose Lactic Acid 2.50 H* Calcium AST Alkaline Phosphatase CK-MB (CK-2) CK-MB (CK-2) Rel Index Albumin TSH Urine WBC (Auto) Salicylates 01/29/17 01/29/17 01/29/17 11:56 18:11 23:55 WBC RBC Hgb Hct MCV MCH RDW Plt Count Lymph % (Auto) [place] % (Auto) Eos % (Auto) Seg Neutrophils % Seg Neuts % (Manual) Lymphocytes % (Manual) Seg Neutrophils # Seg Neutrophils # Man Lymphocytes # (Manual) APTT POC ABG pH ABG pH POC ABG pCO2 POC ABG pO2 ABG pO2 ABG HCO3 ABG Base Excess ABG Hemoglobin VBG pH Oxyhemoglobin Sodium Potassium Chloride Carbon Dioxide BUN Creatinine Glucose POC Glucose 261 H 215 H 176 H Lactic Acid Calcium AST Alkaline Phosphatase CK-MB (CK-2) CK-MB (CK-2) Rel Index Albumin TSH Urine WBC (Auto) Salicylates 01/30/17 01/30/17 01/30/17 05:31 05:31 05:34 WBC 15.2 H RBC 3.09 L Hgb 7.9 L Hct 23.9 L MCV 77 L MCH 26 L RDW 16.9 H Plt Count 569 H Lymph % (Auto) [place] % (Auto) Eos % (Auto) Seg Neutrophils % Seg Neuts % (Manual) Lymphocytes % (Manual) Seg Neutrophils # Seg Neutrophils # Man Lymphocytes # (Manual) APTT POC ABG pH ABG pH POC ABG pCO2 POC ABG pO2 ABG pO2 ABG HCO3 ABG Base Excess ABG Hemoglobin VBG pH Oxyhemoglobin Sodium Potassium Chloride Carbon Dioxide BUN 24 H Creatinine Glucose 235 H POC Glucose 243 H Lactic Acid Calcium AST Alkaline Phosphatase CK-MB (CK-2) CK-MB (CK-2) Rel Index Albumin TSH Urine WBC (Auto) Salicylates 01/30/17 01/30/17 01/30/17 11:38 17:58 23:29 WBC RBC Hgb Hct MCV MCH RDW Plt Count Lymph % (Auto) [place] % (Auto) Eos % (Auto) Seg Neutrophils % Seg Neuts % (Manual) Lymphocytes % (Manual) Seg Neutrophils # Seg Neutrophils # Man Lymphocytes # (Manual) APTT POC ABG pH ABG pH POC ABG pCO2 POC ABG pO2 ABG pO2 ABG HCO3 ABG Base Excess ABG Hemoglobin VBG pH Oxyhemoglobin Sodium Potassium Chloride Carbon Dioxide BUN Creatinine Glucose POC Glucose 298 H 208 H 245 H Lactic Acid Calcium AST Alkaline Phosphatase CK-MB (CK-2) CK-MB (CK-2) Rel Index Albumin TSH Urine WBC (Auto) Salicylates 01/31/17 01/31/17 01/31/17 04:39 04:39 05:57 WBC 11.4 H RBC 3.22 L Hgb 8.2 L Hct 24.9 L MCV 78 L MCH 25 L RDW 17.2 H Plt Count 576 H Lymph % (Auto) [place] % (Auto) Eos % (Auto) Seg Neutrophils % Seg Neuts % (Manual) Lymphocytes % (Manual) Seg Neutrophils # Seg Neutrophils # Man Lymphocytes # (Manual) APTT POC ABG pH ABG pH POC ABG pCO2 POC ABG pO2 ABG pO2 ABG HCO3 ABG Base Excess ABG Hemoglobin VBG pH Oxyhemoglobin Sodium Potassium Chloride Carbon Dioxide BUN Creatinine 0.7 L Glucose 223 H POC Glucose 264 H Lactic Acid Calcium AST Alkaline Phosphatase CK-MB (CK-2) CK-MB (CK-2) Rel Index Albumin TSH Urine WBC (Auto) Salicylates 01/31/17 01/31/17 01/31/17 12:23 17:41 18:55 WBC RBC Hgb Hct MCV MCH RDW Plt Count Lymph % (Auto) [place] % (Auto) Eos % (Auto) Seg Neutrophils % Seg Neuts % (Manual) Lymphocytes % (Manual) Seg Neutrophils # Seg Neutrophils # Man Lymphocytes # (Manual) APTT POC ABG pH ABG pH POC ABG pCO2 32.8 L POC ABG pO2 ABG pO2 ABG HCO3 ABG Base Excess ABG Hemoglobin VBG pH Oxyhemoglobin Sodium Potassium Chloride Carbon Dioxide BUN Creatinine Glucose POC Glucose 252 H 208 H Lactic Acid Calcium AST Alkaline Phosphatase CK-MB (CK-2) CK-MB (CK-2) Rel Index Albumin TSH Urine WBC (Auto) Salicylates 01/31/17 02/01/17 02/01/17 22:59 03:38 03:38 WBC RBC 2.81 L Hgb 7.4 L Hct 22.1 L MCV 79 L MCH 27 L RDW 17.0 H Plt Count 540 H Lymph % (Auto) [place] % (Auto) Eos % (Auto) Seg Neutrophils % Seg Neuts % (Manual) Lymphocytes % (Manual) Seg Neutrophils # Seg Neutrophils # Man Lymphocytes # (Manual) APTT POC ABG pH ABG pH POC ABG pCO2 POC ABG pO2 ABG pO2 ABG HCO3 ABG Base Excess ABG Hemoglobin VBG pH Oxyhemoglobin Sodium Potassium Chloride Carbon Dioxide 21 L BUN Creatinine 0.7 L Glucose POC Glucose 40 L Lactic Acid Calcium AST Alkaline Phosphatase CK-MB (CK-2) CK-MB (CK-2) Rel Index Albumin TSH Urine WBC (Auto) Salicylates 02/01/17 02/01/17 02/01/17 05:17 12:19 16:44 WBC RBC Hgb Hct MCV MCH RDW Plt Count Lymph % (Auto) [place] % (Auto) Eos % (Auto) Seg Neutrophils % Seg Neuts % (Manual) Lymphocytes % (Manual) Seg Neutrophils # Seg Neutrophils # Man Lymphocytes # (Manual) APTT POC ABG pH ABG pH POC ABG pCO2 POC ABG pO2 ABG pO2 ABG HCO3 ABG Base Excess ABG Hemoglobin VBG pH Oxyhemoglobin Sodium Potassium Chloride Carbon Dioxide BUN Creatinine Glucose POC Glucose 140 H 213 H 172 H Lactic Acid Calcium AST Alkaline Phosphatase CK-MB (CK-2) CK-MB (CK-2) Rel Index Albumin TSH Urine WBC (Auto) Salicylates 02/01/17 02/02/17 02/02/17 23:59 05:14 11:24 WBC RBC Hgb Hct MCV MCH RDW Plt Count Lymph % (Auto) [place] % (Auto) Eos % (Auto) Seg Neutrophils % Seg Neuts % (Manual) Lymphocytes % (Manual) Seg Neutrophils # Seg Neutrophils # Man Lymphocytes # (Manual) APTT POC ABG pH ABG pH POC ABG pCO2 POC ABG pO2 ABG pO2 ABG HCO3 ABG Base Excess ABG Hemoglobin VBG pH Oxyhemoglobin Sodium Potassium Chloride Carbon Dioxide BUN Creatinine Glucose POC Glucose 181 H 194 H 209 H Lactic Acid Calcium AST Alkaline Phosphatase CK-MB (CK-2) CK-MB (CK-2) Rel Index Albumin TSH Urine WBC (Auto) Salicylates 02/02/17 02/02/17 02/02/17 11:46 11:46 17:47 WBC RBC 2.94 L Hgb 7.5 L Hct 23.0 L MCV 78 L MCH 25 L RDW 16.9 H Plt Count 520 H Lymph % (Auto) [place] % (Auto) Eos % (Auto) Seg Neutrophils % Seg Neuts % (Manual) Lymphocytes % (Manual) Seg Neutrophils # Seg Neutrophils # Man Lymphocytes # (Manual) APTT POC ABG pH ABG pH POC ABG pCO2 POC ABG pO2 ABG pO2 ABG HCO3 ABG Base Excess ABG Hemoglobin VBG pH Oxyhemoglobin Sodium Potassium Chloride Carbon Dioxide BUN Creatinine 0.6 L Glucose 189 H POC Glucose 147 H Lactic Acid Calcium 8.1 L AST Alkaline Phosphatase CK-MB (CK-2) CK-MB (CK-2) Rel Index Albumin TSH Urine WBC (Auto) Salicylates 02/02/17 02/03/17 02/03/17 23:32 05:53 11:19 WBC RBC Hgb Hct MCV MCH RDW Plt Count Lymph % (Auto) [place] % (Auto) Eos % (Auto) Seg Neutrophils % Seg Neuts % (Manual) Lymphocytes % (Manual) Seg Neutrophils # Seg Neutrophils # Man Lymphocytes # (Manual) APTT POC ABG pH ABG pH POC ABG pCO2 POC ABG pO2 ABG pO2 ABG HCO3 ABG Base Excess ABG Hemoglobin VBG pH Oxyhemoglobin Sodium Potassium Chloride Carbon Dioxide BUN Creatinine Glucose POC Glucose 176 H 224 H 228 H Lactic Acid Calcium AST Alkaline Phosphatase CK-MB (CK-2) CK-MB (CK-2) Rel Index Albumin TSH Urine WBC (Auto) Salicylates 02/03/17 02/03/17 02/04/17 16:59 23:38 05:45 WBC RBC Hgb Hct MCV MCH RDW Plt Count Lymph % (Auto) [place] % (Auto) Eos % (Auto) Seg Neutrophils % Seg Neuts % (Manual) Lymphocytes % (Manual) Seg Neutrophils # Seg Neutrophils # Man Lymphocytes # (Manual) APTT POC ABG pH ABG pH POC ABG pCO2 POC ABG pO2 ABG pO2 ABG HCO3 ABG Base Excess ABG Hemoglobin VBG pH Oxyhemoglobin Sodium Potassium Chloride Carbon Dioxide BUN Creatinine Glucose POC Glucose 189 H 191 H 251 H Lactic Acid Calcium AST Alkaline Phosphatase CK-MB (CK-2) CK-MB (CK-2) Rel Index Albumin TSH Urine WBC (Auto) Salicylates 02/04/17 02/04/17 02/05/17 11:20 17:20 00:17 WBC RBC Hgb Hct MCV MCH RDW Plt Count Lymph % (Auto) [place] % (Auto) Eos % (Auto) Seg Neutrophils % Seg Neuts % (Manual) Lymphocytes % (Manual) Seg Neutrophils # Seg Neutrophils # Man Lymphocytes # (Manual) APTT POC ABG pH ABG pH POC ABG pCO2 POC ABG pO2 ABG pO2 ABG HCO3 ABG Base Excess ABG Hemoglobin VBG pH Oxyhemoglobin Sodium Potassium Chloride Carbon Dioxide BUN Creatinine Glucose POC Glucose 243 H 163 H 200 H Lactic Acid Calcium AST Alkaline Phosphatase CK-MB (CK-2) CK-MB (CK-2) Rel Index Albumin TSH Urine WBC (Auto) Salicylates 02/05/17 02/05/17 02/05/17 05:38 12:38 16:29 WBC RBC Hgb Hct MCV MCH RDW Plt Count Lymph % (Auto) [place] % (Auto) Eos % (Auto) Seg Neutrophils % Seg Neuts % (Manual) Lymphocytes % (Manual) Seg Neutrophils # Seg Neutrophils # Man Lymphocytes # (Manual) APTT POC ABG pH ABG pH POC ABG pCO2 POC ABG pO2 ABG pO2 ABG HCO3 ABG Base Excess ABG Hemoglobin VBG pH Oxyhemoglobin Sodium Potassium Chloride Carbon Dioxide BUN Creatinine Glucose POC Glucose 248 H 241 H 257 H Lactic Acid Calcium AST Alkaline Phosphatase CK-MB (CK-2) CK-MB (CK-2) Rel Index Albumin TSH Urine WBC (Auto) Salicylates 02/05/17 02/06/17 02/06/17 23:56 05:30 11:50 WBC RBC Hgb Hct MCV MCH RDW Plt Count Lymph % (Auto) [place] % (Auto) Eos % (Auto) Seg Neutrophils % Seg Neuts % (Manual) Lymphocytes % (Manual) Seg Neutrophils # Seg Neutrophils # Man Lymphocytes # (Manual) APTT POC ABG pH ABG pH POC ABG pCO2 POC ABG pO2 ABG pO2 ABG HCO3 ABG Base Excess ABG Hemoglobin VBG pH Oxyhemoglobin Sodium Potassium Chloride Carbon Dioxide BUN Creatinine Glucose POC Glucose 258 H 120 H 254 H Lactic Acid Calcium AST Alkaline Phosphatase CK-MB (CK-2) CK-MB (CK-2) Rel Index Albumin TSH Urine WBC (Auto) Salicylates 02/06/17 02/06/17 02/07/17 17:11 23:50 05:22 WBC RBC Hgb Hct MCV MCH RDW Plt Count Lymph % (Auto) [place] % (Auto) Eos % (Auto) Seg Neutrophils % Seg Neuts % (Manual) Lymphocytes % (Manual) Seg Neutrophils # Seg Neutrophils # Man Lymphocytes # (Manual) APTT POC ABG pH ABG pH POC ABG pCO2 POC ABG pO2 ABG pO2 ABG HCO3 ABG Base Excess ABG Hemoglobin VBG pH Oxyhemoglobin Sodium Potassium Chloride Carbon Dioxide BUN Creatinine Glucose POC Glucose 149 H 240 H 258 H Lactic Acid Calcium AST Alkaline Phosphatase CK-MB (CK-2) CK-MB (CK-2) Rel Index Albumin TSH Urine WBC (Auto) Salicylates 02/07/17 02/07/17 02/07/17 11:15 18:33 23:59 WBC RBC Hgb Hct MCV MCH RDW Plt Count Lymph % (Auto) [place] % (Auto) Eos % (Auto) Seg Neutrophils % Seg Neuts % (Manual) Lymphocytes % (Manual) Seg Neutrophils # Seg Neutrophils # Man Lymphocytes # (Manual) APTT POC ABG pH ABG pH POC ABG pCO2 POC ABG pO2 ABG pO2 ABG HCO3 ABG Base Excess ABG Hemoglobin VBG pH Oxyhemoglobin Sodium Potassium Chloride Carbon Dioxide BUN Creatinine Glucose POC Glucose 239 H 176 H 186 H Lactic Acid Calcium AST Alkaline Phosphatase CK-MB (CK-2) CK-MB (CK-2) Rel Index Albumin TSH Urine WBC (Auto) Salicylates 02/08/17 02/08/17 02/08/17 06:15 11:55 16:55 WBC RBC Hgb Hct MCV MCH RDW Plt Count Lymph % (Auto) [place] % (Auto) Eos % (Auto) Seg Neutrophils % Seg Neuts % (Manual) Lymphocytes % (Manual) Seg Neutrophils # Seg Neutrophils # Man Lymphocytes # (Manual) APTT POC ABG pH ABG pH POC ABG pCO2 POC ABG pO2 ABG pO2 ABG HCO3 ABG Base Excess ABG Hemoglobin VBG pH Oxyhemoglobin Sodium Potassium Chloride Carbon Dioxide BUN Creatinine Glucose POC Glucose 195 H 129 H 246 H Lactic Acid Calcium AST Alkaline Phosphatase CK-MB (CK-2) CK-MB (CK-2) Rel Index Albumin TSH Urine WBC (Auto) Salicylates 02/08/17 02/09/17 02/09/17 23:51 05:51 07:24 WBC 14.7 H RBC 3.39 L Hgb 8.9 L Hct 26.4 L MCV 78 L MCH 26 L RDW 18.4 H Plt Count 670 H Lymph % (Auto) 11.8 L [place] % (Auto) Eos % (Auto) Seg Neutrophils % 81.2 H Seg Neuts % (Manual) Lymphocytes % (Manual) Seg Neutrophils # 11.9 H Seg Neutrophils # Man Lymphocytes # (Manual) APTT POC ABG pH ABG pH POC ABG pCO2 POC ABG pO2 ABG pO2 ABG HCO3 ABG Base Excess ABG Hemoglobin VBG pH Oxyhemoglobin Sodium Potassium Chloride Carbon Dioxide BUN Creatinine Glucose POC Glucose 262 H 295 H Lactic Acid Calcium AST Alkaline Phosphatase CK-MB (CK-2) CK-MB (CK-2) Rel Index Albumin TSH Urine WBC (Auto) Salicylates 02/09/17 02/09/17 02/09/17 07:24 12:08 18:39 WBC RBC Hgb Hct MCV MCH RDW Plt Count Lymph % (Auto) [place] % (Auto) Eos % (Auto) Seg Neutrophils % Seg Neuts % (Manual) Lymphocytes % (Manual) Seg Neutrophils # Seg Neutrophils # Man Lymphocytes # (Manual) APTT POC ABG pH ABG pH POC ABG pCO2 POC ABG pO2 ABG pO2 ABG HCO3 ABG Base Excess ABG Hemoglobin VBG pH Oxyhemoglobin Sodium Potassium Chloride 95.5 L Carbon Dioxide BUN 52 H Creatinine Glucose 277 H POC Glucose 236 H 151 H Lactic Acid Calcium AST Alkaline Phosphatase CK-MB (CK-2) CK-MB (CK-2) Rel Index Albumin TSH Urine WBC (Auto) Salicylates 02/10/17 02/10/17 02/10/17 00:01 05:44 11:21 WBC RBC Hgb Hct MCV MCH RDW Plt Count Lymph % (Auto) [place] % (Auto) Eos % (Auto) Seg Neutrophils % Seg Neuts % (Manual) Lymphocytes % (Manual) Seg Neutrophils # Seg Neutrophils # Man Lymphocytes # (Manual) APTT POC ABG pH ABG pH POC ABG pCO2 POC ABG pO2 ABG pO2 ABG HCO3 ABG Base Excess ABG Hemoglobin VBG pH Oxyhemoglobin Sodium Potassium Chloride Carbon Dioxide BUN Creatinine Glucose POC Glucose 210 H 201 H 233 H Lactic Acid Calcium AST Alkaline Phosphatase CK-MB (CK-2) CK-MB (CK-2) Rel Index Albumin TSH Urine WBC (Auto) Salicylates 02/10/17 02/10/17 02/11/17 17:29 23:56 05:24 WBC RBC Hgb Hct MCV MCH RDW Plt Count Lymph % (Auto) [place] % (Auto) Eos % (Auto) Seg Neutrophils % Seg Neuts % (Manual) Lymphocytes % (Manual) Seg Neutrophils # Seg Neutrophils # Man Lymphocytes # (Manual) APTT POC ABG pH ABG pH POC ABG pCO2 POC ABG pO2 ABG pO2 ABG HCO3 ABG Base Excess ABG Hemoglobin VBG pH Oxyhemoglobin Sodium Potassium Chloride Carbon Dioxide BUN Creatinine Glucose POC Glucose 167 H 191 H 135 H Lactic Acid Calcium AST Alkaline Phosphatase CK-MB (CK-2) CK-MB (CK-2) Rel Index Albumin TSH Urine WBC (Auto) Salicylates 02/11/17 02/11/17 02/11/17 12:25 17:03 23:59 WBC RBC Hgb Hct MCV MCH RDW Plt Count Lymph % (Auto) [place] % (Auto) Eos % (Auto) Seg Neutrophils % Seg Neuts % (Manual) Lymphocytes % (Manual) Seg Neutrophils # Seg Neutrophils # Man Lymphocytes # (Manual) APTT POC ABG pH ABG pH POC ABG pCO2 POC ABG pO2 ABG pO2 ABG HCO3 ABG Base Excess ABG Hemoglobin VBG pH Oxyhemoglobin Sodium Potassium Chloride Carbon Dioxide BUN Creatinine Glucose POC Glucose 275 H 172 H 215 H Lactic Acid Calcium AST Alkaline Phosphatase CK-MB (CK-2) CK-MB (CK-2) Rel Index Albumin TSH Urine WBC (Auto) Salicylates 02/12/17 02/12/17 02/12/17 05:39 11:33 17:55 WBC RBC Hgb Hct MCV MCH RDW Plt Count Lymph % (Auto) [place] % (Auto) Eos % (Auto) Seg Neutrophils % Seg Neuts % (Manual) Lymphocytes % (Manual) Seg Neutrophils # Seg Neutrophils # Man Lymphocytes # (Manual) APTT POC ABG pH ABG pH POC ABG pCO2 POC ABG pO2 ABG pO2 ABG HCO3 ABG Base Excess ABG Hemoglobin VBG pH Oxyhemoglobin Sodium Potassium Chloride Carbon Dioxide BUN Creatinine Glucose POC Glucose 261 H 217 H 172 H Lactic Acid Calcium AST Alkaline Phosphatase CK-MB (CK-2) CK-MB (CK-2) Rel Index Albumin TSH Urine WBC (Auto) Salicylates 02/13/17 02/13/17 02/13/17 00:25 06:46 11:26 WBC RBC Hgb Hct MCV MCH RDW Plt Count Lymph % (Auto) [place] % (Auto) Eos % (Auto) Seg Neutrophils % Seg Neuts % (Manual) Lymphocytes % (Manual) Seg Neutrophils # Seg Neutrophils # Man Lymphocytes # (Manual) APTT POC ABG pH ABG pH POC ABG pCO2 POC ABG pO2 ABG pO2 ABG HCO3 ABG Base Excess ABG Hemoglobin VBG pH Oxyhemoglobin Sodium Potassium Chloride Carbon Dioxide BUN Creatinine Glucose POC Glucose 207 H 219 H 231 H Lactic Acid Calcium AST Alkaline Phosphatase CK-MB (CK-2) CK-MB (CK-2) Rel Index Albumin TSH Urine WBC (Auto) Salicylates 02/13/17 02/13/17 02/14/17 17:12 23:44 05:44 WBC RBC Hgb Hct MCV MCH RDW Plt Count Lymph % (Auto) [place] % (Auto) Eos % (Auto) Seg Neutrophils % Seg Neuts % (Manual) Lymphocytes % (Manual) Seg Neutrophils # Seg Neutrophils # Man Lymphocytes # (Manual) APTT POC ABG pH ABG pH POC ABG pCO2 POC ABG pO2 ABG pO2 ABG HCO3 ABG Base Excess ABG Hemoglobin VBG pH Oxyhemoglobin Sodium Potassium Chloride Carbon Dioxide BUN Creatinine Glucose POC Glucose 190 H 256 H 184 H Lactic Acid Calcium AST Alkaline Phosphatase CK-MB (CK-2) CK-MB (CK-2) Rel Index Albumin TSH Urine WBC (Auto) Salicylates 02/14/17 02/14/17 02/14/17 12:21 17:57 23:18 WBC RBC Hgb Hct MCV MCH RDW Plt Count Lymph % (Auto) [place] % (Auto) Eos % (Auto) Seg Neutrophils % Seg Neuts % (Manual) Lymphocytes % (Manual) Seg Neutrophils # Seg Neutrophils # Man Lymphocytes # (Manual) APTT POC ABG pH ABG pH POC ABG pCO2 POC ABG pO2 ABG pO2 ABG HCO3 ABG Base Excess ABG Hemoglobin VBG pH Oxyhemoglobin Sodium Potassium Chloride Carbon Dioxide BUN Creatinine Glucose POC Glucose 233 H 155 H 165 H Lactic Acid Calcium AST Alkaline Phosphatase CK-MB (CK-2) CK-MB (CK-2) Rel Index Albumin TSH Urine WBC (Auto) Salicylates 02/15/17 02/15/17 02/15/17 05:33 11:45 17:20 WBC RBC Hgb Hct MCV MCH RDW Plt Count Lymph % (Auto) [place] % (Auto) Eos % (Auto) Seg Neutrophils % Seg Neuts % (Manual) Lymphocytes % (Manual) Seg Neutrophils # Seg Neutrophils # Man Lymphocytes # (Manual) APTT POC ABG pH ABG pH POC ABG pCO2 POC ABG pO2 ABG pO2 ABG HCO3 ABG Base Excess ABG Hemoglobin VBG pH Oxyhemoglobin Sodium Potassium Chloride Carbon Dioxide BUN Creatinine Glucose POC Glucose 239 H 130 H 189 H Lactic Acid Calcium AST Alkaline Phosphatase CK-MB (CK-2) CK-MB (CK-2) Rel Index Albumin TSH Urine WBC (Auto) Salicylates 02/16/17 02/16/17 02/16/17 00:14 05:09 12:31 WBC RBC Hgb Hct MCV MCH RDW Plt Count Lymph % (Auto) [place] % (Auto) Eos % (Auto) Seg Neutrophils % Seg Neuts % (Manual) Lymphocytes % (Manual) Seg Neutrophils # Seg Neutrophils # Man Lymphocytes # (Manual) APTT POC ABG pH ABG pH POC ABG pCO2 POC ABG pO2 ABG pO2 ABG HCO3 ABG Base Excess ABG Hemoglobin VBG pH Oxyhemoglobin Sodium Potassium Chloride Carbon Dioxide BUN Creatinine Glucose POC Glucose 197 H 226 H 178 H Lactic Acid Calcium AST Alkaline Phosphatase CK-MB (CK-2) CK-MB (CK-2) Rel Index Albumin TSH Urine WBC (Auto) Salicylates 02/16/17 02/16/17 02/17/17 16:35 23:49 05:37 WBC RBC Hgb Hct MCV MCH RDW Plt Count Lymph % (Auto) [place] % (Auto) Eos % (Auto) Seg Neutrophils % Seg Neuts % (Manual) Lymphocytes % (Manual) Seg Neutrophils # Seg Neutrophils # Man Lymphocytes # (Manual) APTT POC ABG pH ABG pH POC ABG pCO2 POC ABG pO2 ABG pO2 ABG HCO3 ABG Base Excess ABG Hemoglobin VBG pH Oxyhemoglobin Sodium Potassium Chloride Carbon Dioxide BUN Creatinine Glucose POC Glucose 174 H 62 L 153 H Lactic Acid Calcium AST Alkaline Phosphatase CK-MB (CK-2) CK-MB (CK-2) Rel Index Albumin TSH Urine WBC (Auto) Salicylates 02/17/17 02/17/17 02/17/17 11:39 17:02 22:24 WBC RBC Hgb Hct MCV MCH RDW Plt Count Lymph % (Auto) [place] % (Auto) Eos % (Auto) Seg Neutrophils % Seg Neuts % (Manual) Lymphocytes % (Manual) Seg Neutrophils # Seg Neutrophils # Man Lymphocytes # (Manual) APTT POC ABG pH ABG pH POC ABG pCO2 POC ABG pO2 ABG pO2 ABG HCO3 ABG Base Excess ABG Hemoglobin VBG pH Oxyhemoglobin Sodium Potassium Chloride Carbon Dioxide BUN Creatinine Glucose POC Glucose 231 H 112 H 116 H Lactic Acid Calcium AST Alkaline Phosphatase CK-MB (CK-2) CK-MB (CK-2) Rel Index Albumin TSH Urine WBC (Auto) Salicylates 02/18/17 02/19/17 02/19/17 15:34 05:09 07:57 WBC RBC Hgb Hct MCV MCH RDW Plt Count Lymph % (Auto) [place] % (Auto) Eos % (Auto) Seg Neutrophils % Seg Neuts % (Manual) Lymphocytes % (Manual) Seg Neutrophils # Seg Neutrophils # Man Lymphocytes # (Manual) APTT POC ABG pH ABG pH POC ABG pCO2 POC ABG pO2 ABG pO2 ABG HCO3 ABG Base Excess ABG Hemoglobin VBG pH Oxyhemoglobin Sodium Potassium Chloride Carbon Dioxide BUN Creatinine Glucose POC Glucose 215 H 218 H 283 H Lactic Acid Calcium AST Alkaline Phosphatase CK-MB (CK-2) CK-MB (CK-2) Rel Index Albumin TSH Urine WBC (Auto) Salicylates 02/19/17 02/19/17 02/20/17 14:49 22:10 05:10 WBC RBC Hgb Hct MCV MCH RDW Plt Count Lymph % (Auto) [place] % (Auto) Eos % (Auto) Seg Neutrophils % Seg Neuts % (Manual) Lymphocytes % (Manual) Seg Neutrophils # Seg Neutrophils # Man Lymphocytes # (Manual) APTT POC ABG pH ABG pH POC ABG pCO2 POC ABG pO2 ABG pO2 ABG HCO3 ABG Base Excess ABG Hemoglobin VBG pH Oxyhemoglobin Sodium Potassium Chloride Carbon Dioxide BUN Creatinine Glucose POC Glucose 290 H 169 H 209 H Lactic Acid Calcium AST Alkaline Phosphatase CK-MB (CK-2) CK-MB (CK-2) Rel Index Albumin TSH Urine WBC (Auto) Salicylates 02/20/17 02/20/17 02/21/17 15:05 21:52 02:00 WBC RBC Hgb Hct MCV MCH RDW Plt Count Lymph % (Auto) [place] % (Auto) Eos % (Auto) Seg Neutrophils % Seg Neuts % (Manual) Lymphocytes % (Manual) Seg Neutrophils # Seg Neutrophils # Man Lymphocytes # (Manual) APTT POC ABG pH ABG pH POC ABG pCO2 POC ABG pO2 ABG pO2 ABG HCO3 ABG Base Excess ABG Hemoglobin VBG pH Oxyhemoglobin Sodium Potassium Chloride Carbon Dioxide BUN Creatinine Glucose POC Glucose 172 H 209 H 216 H Lactic Acid Calcium AST Alkaline Phosphatase CK-MB (CK-2) CK-MB (CK-2) Rel Index Albumin TSH Urine WBC (Auto) Salicylates 02/21/17 02/21/17 02/21/17 04:54 14:43 17:47 WBC RBC Hgb Hct MCV MCH RDW Plt Count Lymph % (Auto) [place] % (Auto) Eos % (Auto) Seg Neutrophils % Seg Neuts % (Manual) Lymphocytes % (Manual) Seg Neutrophils # Seg Neutrophils # Man Lymphocytes # (Manual) APTT POC ABG pH ABG pH POC ABG pCO2 POC ABG pO2 ABG pO2 ABG HCO3 ABG Base Excess ABG Hemoglobin VBG pH Oxyhemoglobin Sodium Potassium Chloride Carbon Dioxide BUN Creatinine Glucose POC Glucose 227 H 290 H 220 H Lactic Acid Calcium AST Alkaline Phosphatase CK-MB (CK-2) CK-MB (CK-2) Rel Index Albumin TSH Urine WBC (Auto) Salicylates 02/21/17 02/22/17 02/22/17 22:02 04:52 15:25 WBC RBC Hgb Hct MCV MCH RDW Plt Count Lymph % (Auto) [place] % (Auto) Eos % (Auto) Seg Neutrophils % Seg Neuts % (Manual) Lymphocytes % (Manual) Seg Neutrophils # Seg Neutrophils # Man Lymphocytes # (Manual) APTT POC ABG pH ABG pH POC ABG pCO2 POC ABG pO2 ABG pO2 ABG HCO3 ABG Base Excess ABG Hemoglobin VBG pH Oxyhemoglobin Sodium Potassium Chloride Carbon Dioxide BUN Creatinine Glucose POC Glucose 246 H 212 H 236 H Lactic Acid Calcium AST Alkaline Phosphatase CK-MB (CK-2) CK-MB (CK-2) Rel Index Albumin TSH Urine WBC (Auto) Salicylates 02/22/17 02/23/17 02/23/17 21:33 06:04 10:00 WBC RBC Hgb Hct MCV MCH RDW Plt Count Lymph % (Auto) [place] % (Auto) Eos % (Auto) Seg Neutrophils % Seg Neuts % (Manual) Lymphocytes % (Manual) Seg Neutrophils # Seg Neutrophils # Man Lymphocytes # (Manual) APTT POC ABG pH ABG pH POC ABG pCO2 POC ABG pO2 ABG pO2 ABG HCO3 ABG Base Excess ABG Hemoglobin VBG pH Oxyhemoglobin Sodium Potassium Chloride Carbon Dioxide BUN Creatinine Glucose POC Glucose 255 H 208 H 174 H Lactic Acid Calcium AST Alkaline Phosphatase CK-MB (CK-2) CK-MB (CK-2) Rel Index Albumin TSH Urine WBC (Auto) Salicylates 02/23/17 02/23/17 02/23/17 12:52 17:15 21:51 WBC RBC Hgb Hct MCV MCH RDW Plt Count Lymph % (Auto) [place] % (Auto) Eos % (Auto) Seg Neutrophils % Seg Neuts % (Manual) Lymphocytes % (Manual) Seg Neutrophils # Seg Neutrophils # Man Lymphocytes # (Manual) APTT POC ABG pH ABG pH POC ABG pCO2 POC ABG pO2 ABG pO2 ABG HCO3 ABG Base Excess ABG Hemoglobin VBG pH Oxyhemoglobin Sodium Potassium Chloride Carbon Dioxide BUN Creatinine Glucose POC Glucose 203 H 269 H 205 H Lactic Acid Calcium AST Alkaline Phosphatase CK-MB (CK-2) CK-MB (CK-2) Rel Index Albumin TSH Urine WBC (Auto) Salicylates 02/24/17 02/24/17 02/24/17 10:23 17:45 21:24 WBC RBC Hgb Hct MCV MCH RDW Plt Count Lymph % (Auto) [place] % (Auto) Eos % (Auto) Seg Neutrophils % Seg Neuts % (Manual) Lymphocytes % (Manual) Seg Neutrophils # Seg Neutrophils # Man Lymphocytes # (Manual) APTT POC ABG pH ABG pH POC ABG pCO2 POC ABG pO2 ABG pO2 ABG HCO3 ABG Base Excess ABG Hemoglobin VBG pH Oxyhemoglobin Sodium Potassium Chloride Carbon Dioxide BUN Creatinine Glucose POC Glucose 280 H 239 H 254 H Lactic Acid Calcium AST Alkaline Phosphatase CK-MB (CK-2) CK-MB (CK-2) Rel Index Albumin TSH Urine WBC (Auto) Salicylates 02/25/17 02/25/17 02/25/17 02:12 05:17 14:32 WBC RBC Hgb Hct MCV MCH RDW Plt Count Lymph % (Auto) [place] % (Auto) Eos % (Auto) Seg Neutrophils % Seg Neuts % (Manual) Lymphocytes % (Manual) Seg Neutrophils # Seg Neutrophils # Man Lymphocytes # (Manual) APTT POC ABG pH ABG pH POC ABG pCO2 POC ABG pO2 ABG pO2 ABG HCO3 ABG Base Excess ABG Hemoglobin VBG pH Oxyhemoglobin Sodium Potassium Chloride Carbon Dioxide BUN Creatinine Glucose POC Glucose 296 H 332 H 353 H Lactic Acid Calcium AST Alkaline Phosphatase CK-MB (CK-2) CK-MB (CK-2) Rel Index Albumin TSH Urine WBC (Auto) Salicylates 02/25/17 02/26/17 02/26/17 22:14 00:37 05:52 WBC RBC Hgb Hct MCV MCH RDW Plt Count Lymph % (Auto) [place] % (Auto) Eos % (Auto) Seg Neutrophils % Seg Neuts % (Manual) Lymphocytes % (Manual) Seg Neutrophils # Seg Neutrophils # Man Lymphocytes # (Manual) APTT POC ABG pH ABG pH POC ABG pCO2 POC ABG pO2 ABG pO2 ABG HCO3 ABG Base Excess ABG Hemoglobin VBG pH Oxyhemoglobin Sodium Potassium Chloride Carbon Dioxide BUN Creatinine Glucose POC Glucose 201 H 233 H 269 H Lactic Acid Calcium AST Alkaline Phosphatase CK-MB (CK-2) CK-MB (CK-2) Rel Index Albumin TSH Urine WBC (Auto) Salicylates 02/26/17 02/26/17 02/26/17 11:48 13:49 21:26 WBC RBC Hgb Hct MCV MCH RDW Plt Count Lymph % (Auto) [place] % (Auto) Eos % (Auto) Seg Neutrophils % Seg Neuts % (Manual) Lymphocytes % (Manual) Seg Neutrophils # Seg Neutrophils # Man Lymphocytes # (Manual) APTT POC ABG pH ABG pH POC ABG pCO2 POC ABG pO2 ABG pO2 ABG HCO3 ABG Base Excess ABG Hemoglobin VBG pH Oxyhemoglobin Sodium Potassium Chloride Carbon Dioxide BUN Creatinine Glucose POC Glucose 333 H 322 H 244 H Lactic Acid Calcium AST Alkaline Phosphatase CK-MB (CK-2) CK-MB (CK-2) Rel Index Albumin TSH Urine WBC (Auto) Salicylates 02/27/17 02/27/17 02/27/17 05:27 13:51 21:48 WBC RBC Hgb Hct MCV MCH RDW Plt Count Lymph % (Auto) [place] % (Auto) Eos % (Auto) Seg Neutrophils % Seg Neuts % (Manual) Lymphocytes % (Manual) Seg Neutrophils # Seg Neutrophils # Man Lymphocytes # (Manual) APTT POC ABG pH ABG pH POC ABG pCO2 POC ABG pO2 ABG pO2 ABG HCO3 ABG Base Excess ABG Hemoglobin VBG pH Oxyhemoglobin Sodium Potassium Chloride Carbon Dioxide BUN Creatinine Glucose POC Glucose 217 H 239 H 254 H Lactic Acid Calcium AST Alkaline Phosphatase CK-MB (CK-2) CK-MB (CK-2) Rel Index Albumin TSH Urine WBC (Auto) Salicylates 02/28/17 05:38 WBC RBC Hgb Hct MCV MCH RDW Plt Count Lymph % (Auto) [place] % (Auto) Eos % (Auto) Seg Neutrophils % Seg Neuts % (Manual) Lymphocytes % (Manual) Seg Neutrophils # Seg Neutrophils # Man Lymphocytes # (Manual) APTT POC ABG pH ABG pH POC ABG pCO2 POC ABG pO2 ABG pO2 ABG HCO3 ABG Base Excess ABG Hemoglobin VBG pH Oxyhemoglobin Sodium Potassium Chloride Carbon Dioxide BUN Creatinine Glucose POC Glucose 325 H Lactic Acid Calcium AST Alkaline Phosphatase CK-MB (CK-2) CK-MB (CK-2) Rel Index Albumin TSH Urine WBC (Auto) Salicylates
[2017-02-28] MEDS: SIMPLE SYRUP FEEDTUBE PRN (18:56)
[2017-03-01] MEDS: HumuLIN R SUB-Q SCH ×3 (00:35→13:04)
[2017-03-01] MEDS: SYNTHROID PO SCH (06:18)
[2017-03-01] MEDS: NORMODYNE PO SCH ×2 (10:06→22:02)
[2017-03-01] MEDS: HEPARIN SUB-Q SCH ×2 (10:11→22:03)
[2017-03-01] MEDS: PEPCID PO SCH ×2 (10:11→22:02)
[2017-03-01] MEDS: LEVEMIR (NF) SUB-Q SCH (10:12)
--- NOTE | 2017-03-01 12:46 | Progress Note ---
Assessment and Plan Hypoglycemic brain injury Persistent vegetative state Metabolic encephalopathy Hypoglycemia/hypothermia, resolved Acute respiratory failure mechanical ventilator greater than 96 hours UTI with klebsiella, treated ( Cx + on 01/28), now with ESBL on meropenam day one hyponatremia, Hypothyroidism IDDM Hypertension low grade Fever, resolved - Cont supportive care and current medication. Monitor vitals, repeat cx on - no growth - increased dose of long acting insulin to 15 unit - Patient is DNR- needs guardianship from the state to give consent for further management, as has no family to give consent. Brief History: 51 YO Male with CKD,HTN, DM presents to ED after found down and unresponsive by his neighbor, who subsequently called EMS. Upon arrival, patient found unresponsive on the floor with a serum glucose of 21, patient has a known history of alcohol abuse and delirium tremens. The patient was administered D5 approximate 500 mls during transport without change in mental status/level of consciousness. Pt seen and evaluated in ED was was found to be unable to protect his airway. Pt intubated and placed on vent support. Pt found to have evidence of hypothyroidism. He was started on Synthroid. He has since been in the ICU. business services director try to locate family, even spoke to the family who he lives with. They themselves were unaware of any family members. After ethics committee meeting on the patient. The decision was made to make him DO NOT RESUSCITATE and to transfer him to hospice. Given his very poor prognosis and poor likelihood of recovery. It was decided that was not his best interest to get trach and PEG. Therefore he'll be transferred to the hospice intubated. Now Awaiting on court ordered /state guardianship. Hospitalist Physical - Physical exam Narrative exam: General: comatose HEENT: Moist mucous membranes, , no lymphadenopathy Neck: supple Cardiac: S1-S2 heard Lungs: mechnical ventilated breath sounds Abdomen: soft , nontender, nondistended, bowel sounds positive Extremities: no edema clubbing or cyanosis Skin: no rash or lesions Neurologic: opens eyes, no response to deep painful stimuli, does not follow commend Subjective Date of service: 03/01/17 Principal diagnosis: Acute respiratory failure,encephalopathy Interval history: patient remains comatose, no movement of extremities afebrile o/n, no clinical change Objective - Constitutional Vitals: Vital Signs - 12hr 03/01/17 03/01/17 03/01/17 02:00 03:03 03:38 Temperature 98.4 F Pulse Rate 68 69 Pulse Rate [ From Monitor] Respiratory 17 Rate Blood Pressure 127/85 134/85 O2 Sat by Pulse 100 100 Oximetry 03/01/17 03/01/17 03/01/17 04:00 08:00 10:00 Temperature 96.8 F L Pulse Rate 69 60 Pulse Rate [ From Monitor] Respiratory 12 Rate Blood Pressure 123/86 O2 Sat by Pulse 100 Oximetry 03/01/17 03/01/17 03/01/17 10:06 10:31 10:43 Temperature Pulse Rate 60 62 Pulse Rate [ 62 From Monitor] Respiratory 16 16 Rate Blood Pressure 118/74 118/74 O2 Sat by Pulse 100 100 Oximetry 03/01/17 12:00 Temperature 98.6 F Pulse Rate Pulse Rate [ From Monitor] Respiratory Rate Blood Pressure O2 Sat by Pulse Oximetry - Labs CBC & Chem 7: 02/09/17 07:24 02/09/17 07:24 Labs: Abnormal lab results 02/28/17 03/01/17 03/01/17 Range/Units 19:44 00:08 05:31 POC Glucose 116 H 202 H 183 H (70-105)
[2017-03-01] MEDS ORDERED: MERREM/NS 500 MG/50 ML 500 MG/50 ML BAG IV SCH (13:00)
--- NOTE | 2017-03-01 14:49 | Progress Note ---
Assessment and Plan 51 y/o male found down, concern for sepsis and now encephalopathic requiring mechanical ventilation. I stopped the Merrem. Ethically, this is I do not feel is the right thing to do for this patient. This is the same ESBL that was present in the urine from 01/28. Clinically this patient has not improved and nor has he worsened. Abx would potentially cause more harm than good in this patient in a persistent vegatative state. Please call me if there are any questions. 1. continue supportive care 2. 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 I am aware that he is an AND but trach will not fix this problem and is not in my professional opinion the right thing to do for this patient. Most likely he will never be weaned from the vent and will remain in a persistent vegatative state. CCT 31 minutes. Subjective Date of service: 03/01/17 Principal diagnosis: Acute respiratory failure,encephalopathy Interval history: No acute events. Still unresponsive. IMS started on Merrem secondary to ESBL in urine. Objective Vital Signs - 12hr 03/01/17 03/01/17 03/01/17 03:03 03:38 04:00 Temperature 98.4 F Pulse Rate 69 69 Pulse Rate [ From Monitor] Respiratory 12 Rate Blood Pressure 134/85 123/86 O2 Sat by Pulse 100 100 Oximetry 03/01/17 03/01/17 03/01/17 08:00 10:00 10:06 Temperature 96.8 F L Pulse Rate 60 60 Pulse Rate [ From Monitor] Respiratory Rate Blood Pressure 118/74 O2 Sat by Pulse Oximetry 03/01/17 03/01/17 03/01/17 10:31 10:43 12:00 Temperature 98.6 F Pulse Rate 62 Pulse Rate [ 62 From Monitor] Respiratory 16 16 Rate Blood Pressure 118/74 O2 Sat by Pulse 100 100 Oximetry 03/01/17 14:41 Temperature Pulse Rate 57 L Pulse Rate [ From Monitor] Respiratory 14 Rate Blood Pressure 152/84 O2 Sat by Pulse 100 Oximetry Constitutional: no acute distress, alert, other (orally intubated, on vent support) Eyes: non-icteric ENT: oropharynx moist Neck: supple, no JVD Effort: normal Ascultation: Bilateral: clear, diminished breath sounds Cardiovascular: regular rate and rhythm Gastrointestinal: normoactive bowel sounds, soft, non-tender, non-distended Integumentary: normal Extremities: no cyanosis, no edema, pink and warm Neurologic: other (awake spontaneously, not not following any commands. Fixed stare.) Psychiatric: other (unable to obtain) CBC and BMP: 02/09/17 07:24 02/09/17 07:24 ABG, PT/INR, D-dimer: ABG POC ABG pH 7.442 (7.35-7.45) 01/31/17 18:55 ABG pH 7.420 pH Units (7.350-7.450) 01/17/17 04:35 POC ABG pCO2 32.8 (35-45) L 01/31/17 18:55 ABG pCO2 34.5 mm Hg 01/17/17 04:35 POC ABG pO2 82 (80-105) 01/31/17 18:55 ABG pO2 160.3 mm Hg (80.0-90.0) H 01/17/17 04:35 POC ABG HCO3 22.4 01/31/17 18:55 POC ABG Total CO2 23 01/31/17 18:55 POC ABG O2 Sat 97 01/31/17 18:55 ABG O2 Saturation 99.0 % (95.0-99.0) 01/17/17 04:35 PT/INR, D-dimer PT 14.1 Sec. (12.2-14.9) 01/17/17 04:10 INR 1.04 (0.87-1.13) 01/17/17 04:10 Abnormal lab findings: Abnormal Labs 01/09/17 01/09/17 01/09/17 10:16 10:16 10:16 WBC RBC Hgb 9.7 L Hct 28.4 L MCV 76 L MCH 26 L RDW 17.2 H Plt Count 448 H Lymph % (Auto) Grant % (Auto) Eos % (Auto) Seg Neutrophils % 79.5 H Seg Neuts % (Manual) Lymphocytes % (Manual) Seg Neutrophils # Seg Neutrophils # Man Lymphocytes # (Manual) APTT 39.6 H POC ABG pH ABG pH POC ABG pCO2 POC ABG pO2 ABG pO2 ABG HCO3 ABG Base Excess ABG Hemoglobin VBG pH Oxyhemoglobin Sodium 132 L Potassium Chloride 96.7 L Carbon Dioxide 21 L BUN 34 H Creatinine Glucose POC Glucose Lactic Acid Calcium 8.3 L AST Alkaline Phosphatase 151 H CK-MB (CK-2) 7.1 H CK-MB (CK-2) Rel Index 5.2 H Albumin 3.3 L TSH Urine WBC (Auto) Salicylates 01/09/17 01/09/17 01/09/17 10:16 10:16 10:16 WBC RBC Hgb Hct MCV MCH RDW Plt Count Lymph % (Auto) Grant % (Auto) Eos % (Auto) Seg Neutrophils % Seg Neuts % (Manual) Lymphocytes % (Manual) Seg Neutrophils # Seg Neutrophils # Man Lymphocytes # (Manual) APTT POC ABG pH ABG pH POC ABG pCO2 POC ABG pO2 ABG pO2 ABG HCO3 ABG Base Excess ABG Hemoglobin VBG pH 7.284 L Oxyhemoglobin Sodium Potassium Chloride Carbon Dioxide BUN Creatinine Glucose POC Glucose Lactic Acid Calcium AST Alkaline Phosphatase CK-MB (CK-2) CK-MB (CK-2) Rel Index Albumin TSH 52.800 H Urine WBC (Auto) Salicylates < 0.3 L 01/09/17 01/09/17 01/09/17 10:23 11:14 12:49 WBC RBC Hgb Hct MCV MCH RDW Plt Count Lymph % (Auto) Grant % (Auto) Eos % (Auto) Seg Neutrophils % Seg Neuts % (Manual) Lymphocytes % (Manual) Seg Neutrophils # Seg Neutrophils # Man Lymphocytes # (Manual) APTT POC ABG pH ABG pH POC ABG pCO2 POC ABG pO2 643 H ABG pO2 ABG HCO3 ABG Base Excess ABG Hemoglobin VBG pH Oxyhemoglobin Sodium Potassium Chloride Carbon Dioxide BUN Creatinine Glucose POC Glucose < 40 L Lactic Acid Calcium AST Alkaline Phosphatase CK-MB (CK-2) CK-MB (CK-2) Rel Index Albumin TSH Urine WBC (Auto) 61.0 H Salicylates 01/09/17 01/09/17 01/09/17 13:13 14:21 15:09 WBC RBC Hgb Hct MCV MCH RDW Plt Count Lymph % (Auto) Grant % (Auto) Eos % (Auto) Seg Neutrophils % Seg Neuts % (Manual) Lymphocytes % (Manual) Seg Neutrophils # Seg Neutrophils # Man Lymphocytes # (Manual) APTT POC ABG pH ABG pH POC ABG pCO2 POC ABG pO2 ABG pO2 ABG HCO3 ABG Base Excess ABG Hemoglobin VBG pH Oxyhemoglobin Sodium Potassium Chloride Carbon Dioxide BUN Creatinine Glucose POC Glucose 128 H 65 L 120 H Lactic Acid Calcium AST Alkaline Phosphatase CK-MB (CK-2) CK-MB (CK-2) Rel Index Albumin TSH Urine WBC (Auto) Salicylates 01/09/17 01/09/17 01/10/17 16:28 17:14 04:30 WBC 24.1 H RBC 3.38 L Hgb 8.5 L Hct 26.0 L MCV 77 L MCH 25 L RDW 17.9 H Plt Count 474 H Lymph % (Auto) Grant % (Auto) Eos % (Auto) Seg Neutrophils % Seg Neuts % (Manual) 88.0 H Lymphocytes % (Manual) 4.0 L Seg Neutrophils # Seg Neutrophils # Man 21.2 H Lymphocytes # (Manual) 1.0 L APTT POC ABG pH ABG pH POC ABG pCO2 POC ABG pO2 ABG pO2 ABG HCO3 ABG Base Excess ABG Hemoglobin VBG pH Oxyhemoglobin Sodium Potassium Chloride Carbon Dioxide BUN Creatinine Glucose POC Glucose 44 L 112 H Lactic Acid Calcium AST Alkaline Phosphatase CK-MB (CK-2) CK-MB (CK-2) Rel Index Albumin TSH Urine WBC (Auto) Salicylates 01/10/17 01/10/17 01/10/17 04:30 05:41 05:45 WBC RBC Hgb Hct MCV MCH RDW Plt Count Lymph % (Auto) Grant % (Auto) Eos % (Auto) Seg Neutrophils % Seg Neuts % (Manual) Lymphocytes % (Manual) Seg Neutrophils # Seg Neutrophils # Man Lymphocytes # (Manual) APTT POC ABG pH ABG pH POC ABG pCO2 26.6 L POC ABG pO2 207 H ABG pO2 ABG HCO3 ABG Base Excess ABG Hemoglobin VBG pH Oxyhemoglobin Sodium Potassium Chloride Carbon Dioxide 17 L BUN 27 H Creatinine Glucose POC Glucose 68 L Lactic Acid Calcium 7.5 L AST Alkaline Phosphatase CK-MB (CK-2) CK-MB (CK-2) Rel Index Albumin TSH Urine WBC (Auto) Salicylates 01/10/17 01/10/17 01/10/17 07:47 10:50 13:41 WBC RBC Hgb Hct MCV MCH RDW Plt Count Lymph % (Auto) Grant % (Auto) Eos % (Auto) Seg Neutrophils % Seg Neuts % (Manual) Lymphocytes % (Manual) Seg Neutrophils # Seg Neutrophils # Man Lymphocytes # (Manual) APTT POC ABG pH ABG pH POC ABG pCO2 POC ABG pO2 ABG pO2 ABG HCO3 ABG Base Excess ABG Hemoglobin VBG pH Oxyhemoglobin Sodium Potassium Chloride Carbon Dioxide BUN Creatinine Glucose POC Glucose 148 H 165 H 114 H Lactic Acid Calcium AST Alkaline Phosphatase CK-MB (CK-2) CK-MB (CK-2) Rel Index Albumin TSH Urine WBC (Auto) Salicylates 01/10/17 01/10/17 01/10/17 20:20 21:39 23:24 WBC RBC Hgb Hct MCV MCH RDW Plt Count Lymph % (Auto) Grant % (Auto) Eos % (Auto) Seg Neutrophils % Seg Neuts % (Manual) Lymphocytes % (Manual) Seg Neutrophils # Seg Neutrophils # Man Lymphocytes # (Manual) APTT POC ABG pH ABG pH POC ABG pCO2 POC ABG pO2 ABG pO2 ABG HCO3 ABG Base Excess ABG Hemoglobin VBG pH Oxyhemoglobin Sodium Potassium Chloride Carbon Dioxide BUN Creatinine Glucose POC Glucose 150 H 175 H 155 H Lactic Acid Calcium AST Alkaline Phosphatase CK-MB (CK-2) CK-MB (CK-2) Rel Index Albumin TSH Urine WBC (Auto) Salicylates 01/11/17 01/11/17 01/11/17 00:19 04:06 05:20 WBC 15.2 H RBC 3.40 L Hgb 8.9 L Hct 26.3 L MCV 78 L MCH 26 L RDW 18.6 H Plt Count 462 H Lymph % (Auto) 13.2 L Grant % (Auto) Eos % (Auto) Seg Neutrophils % 80.8 H Seg Neuts % (Manual) Lymphocytes % (Manual) Seg Neutrophils # 12.3 H Seg Neutrophils # Man Lymphocytes # (Manual) APTT POC ABG pH 7.463 H ABG pH POC ABG pCO2 26.2 L POC ABG pO2 185 H ABG pO2 ABG HCO3 ABG Base Excess ABG Hemoglobin VBG pH Oxyhemoglobin Sodium Potassium Chloride Carbon Dioxide BUN Creatinine Glucose POC Glucose 163 H Lactic Acid Calcium AST Alkaline Phosphatase CK-MB (CK-2) CK-MB (CK-2) Rel Index Albumin TSH Urine WBC (Auto) Salicylates 01/11/17 01/11/17 01/11/17 05:20 06:21 07:57 WBC RBC Hgb Hct MCV MCH RDW Plt Count Lymph % (Auto) Grant % (Auto) Eos % (Auto) Seg Neutrophils % Seg Neuts % (Manual) Lymphocytes % (Manual) Seg Neutrophils # Seg Neutrophils # Man Lymphocytes # (Manual) APTT POC ABG pH ABG pH POC ABG pCO2 POC ABG pO2 ABG pO2 ABG HCO3 ABG Base Excess ABG Hemoglobin VBG pH Oxyhemoglobin Sodium Potassium 3.4 L Chloride 111.5 H Carbon Dioxide 17 L BUN Creatinine Glucose 147 H POC Glucose 139 H 188 H Lactic Acid Calcium 8.0 L AST Alkaline Phosphatase CK-MB (CK-2) CK-MB (CK-2) Rel Index Albumin TSH Urine WBC (Auto) Salicylates 01/11/17 01/11/17 01/11/17 11:46 16:50 23:15 WBC RBC Hgb Hct MCV MCH RDW Plt Count Lymph % (Auto) Grant % (Auto) Eos % (Auto) Seg Neutrophils % Seg Neuts % (Manual) Lymphocytes % (Manual) Seg Neutrophils # Seg Neutrophils # Man Lymphocytes # (Manual) APTT POC ABG pH ABG pH POC ABG pCO2 POC ABG pO2 ABG pO2 ABG HCO3 ABG Base Excess ABG Hemoglobin VBG pH Oxyhemoglobin Sodium Potassium Chloride Carbon Dioxide BUN Creatinine Glucose POC Glucose 199 H 235 H 155 H Lactic Acid Calcium AST Alkaline Phosphatase CK-MB (CK-2) CK-MB (CK-2) Rel Index Albumin TSH Urine WBC (Auto) Salicylates 01/12/17 01/12/17 01/12/17 05:02 06:56 14:50 WBC RBC Hgb Hct MCV MCH RDW Plt Count Lymph % (Auto) Grant % (Auto) Eos % (Auto) Seg Neutrophils % Seg Neuts % (Manual) Lymphocytes % (Manual) Seg Neutrophils # Seg Neutrophils # Man Lymphocytes # (Manual) APTT POC ABG pH ABG pH POC ABG pCO2 28.0 L POC ABG pO2 178 H ABG pO2 ABG HCO3 ABG Base Excess ABG Hemoglobin VBG pH Oxyhemoglobin Sodium Potassium Chloride Carbon Dioxide BUN Creatinine Glucose POC Glucose 119 H 164 H Lactic Acid Calcium AST Alkaline Phosphatase CK-MB (CK-2) CK-MB (CK-2) Rel Index Albumin TSH Urine WBC (Auto) Salicylates 01/13/17 01/13/17 01/13/17 03:37 03:37 04:26 WBC RBC 3.61 L Hgb 9.3 L Hct 28.0 L MCV 78 L MCH 26 L RDW 18.2 H Plt Count Lymph % (Auto) Grant % (Auto) Eos % (Auto) Seg Neutrophils % Seg Neuts % (Manual) Lymphocytes % (Manual) Seg Neutrophils # Seg Neutrophils # Man Lymphocytes # (Manual) APTT POC ABG pH 7.485 H ABG pH POC ABG pCO2 25.4 L POC ABG pO2 73 L ABG pO2 ABG HCO3 ABG Base Excess ABG Hemoglobin VBG pH Oxyhemoglobin Sodium Potassium Chloride 112.4 H Carbon Dioxide 19 L BUN Creatinine Glucose 118 H POC Glucose Lactic Acid Calcium 8.0 L AST Alkaline Phosphatase CK-MB (CK-2) CK-MB (CK-2) Rel Index Albumin TSH Urine WBC (Auto) Salicylates 01/13/17 01/13/17 01/13/17 06:15 11:50 17:31 WBC RBC Hgb Hct MCV MCH RDW Plt Count Lymph % (Auto) Grant % (Auto) Eos % (Auto) Seg Neutrophils % Seg Neuts % (Manual) Lymphocytes % (Manual) Seg Neutrophils # Seg Neutrophils # Man Lymphocytes # (Manual) APTT POC ABG pH ABG pH POC ABG pCO2 POC ABG pO2 ABG pO2 ABG HCO3 ABG Base Excess ABG Hemoglobin VBG pH Oxyhemoglobin Sodium Potassium Chloride Carbon Dioxide BUN Creatinine Glucose POC Glucose 116 H 171 H 203 H Lactic Acid Calcium AST Alkaline Phosphatase CK-MB (CK-2) CK-MB (CK-2) Rel Index Albumin TSH Urine WBC (Auto) Salicylates 01/14/17 01/14/17 01/14/17 00:02 04:50 04:50 WBC RBC 3.32 L Hgb 8.5 L Hct 26.1 L MCV 79 L MCH 26 L RDW 18.2 H Plt Count Lymph % (Auto) Grant % (Auto) 9.0 H Eos % (Auto) Seg Neutrophils % Seg Neuts % (Manual) Lymphocytes % (Manual) Seg Neutrophils # Seg Neutrophils # Man Lymphocytes # (Manual) APTT POC ABG pH ABG pH POC ABG pCO2 POC ABG pO2 ABG pO2 ABG HCO3 ABG Base Excess ABG Hemoglobin VBG pH Oxyhemoglobin Sodium Potassium Chloride 112.5 H Carbon Dioxide BUN Creatinine Glucose 149 H POC Glucose 157 H Lactic Acid Calcium 8.1 L AST Alkaline Phosphatase CK-MB (CK-2) CK-MB (CK-2) Rel Index Albumin TSH Urine WBC (Auto) Salicylates 01/14/17 01/14/17 01/14/17 05:10 11:27 14:07 WBC RBC Hgb Hct MCV MCH RDW Plt Count Lymph % (Auto) Grant % (Auto) Eos % (Auto) Seg Neutrophils % Seg Neuts % (Manual) Lymphocytes % (Manual) Seg Neutrophils # Seg Neutrophils # Man Lymphocytes # (Manual) APTT POC ABG pH ABG pH POC ABG pCO2 POC ABG pO2 ABG pO2 ABG HCO3 ABG Base Excess ABG Hemoglobin VBG pH Oxyhemoglobin Sodium Potassium Chloride Carbon Dioxide BUN Creatinine Glucose POC Glucose 176 H 147 H Lactic Acid Calcium AST Alkaline Phosphatase CK-MB (CK-2) CK-MB (CK-2) Rel Index Albumin TSH Urine WBC (Auto) 53.0 H Salicylates 01/14/17 01/15/17 01/15/17 16:52 00:04 05:26 WBC RBC Hgb Hct MCV MCH RDW Plt Count Lymph % (Auto) Grant % (Auto) Eos % (Auto) Seg Neutrophils % Seg Neuts % (Manual) Lymphocytes % (Manual) Seg Neutrophils # Seg Neutrophils # Man Lymphocytes # (Manual) APTT POC ABG pH ABG pH POC ABG pCO2 POC ABG pO2 ABG pO2 ABG HCO3 ABG Base Excess ABG Hemoglobin VBG pH Oxyhemoglobin Sodium Potassium Chloride Carbon Dioxide BUN Creatinine Glucose POC Glucose 131 H 193 H 215 H Lactic Acid Calcium AST Alkaline Phosphatase CK-MB (CK-2) CK-MB (CK-2) Rel Index Albumin TSH Urine WBC (Auto) Salicylates 01/15/17 01/15/17 01/15/17 11:49 17:47 21:33 WBC RBC Hgb Hct MCV MCH RDW Plt Count Lymph % (Auto) Grant % (Auto) Eos % (Auto) Seg Neutrophils % Seg Neuts % (Manual) Lymphocytes % (Manual) Seg Neutrophils # Seg Neutrophils # Man Lymphocytes # (Manual) APTT POC ABG pH ABG pH POC ABG pCO2 POC ABG pO2 ABG pO2 ABG HCO3 ABG Base Excess ABG Hemoglobin VBG pH Oxyhemoglobin Sodium Potassium Chloride Carbon Dioxide BUN Creatinine Glucose POC Glucose 121 H 211 H 275 H Lactic Acid Calcium AST Alkaline Phosphatase CK-MB (CK-2) CK-MB (CK-2) Rel Index Albumin TSH Urine WBC (Auto) Salicylates 01/16/17 01/16/17 01/16/17 04:30 05:28 13:45 WBC RBC Hgb Hct MCV MCH RDW Plt Count Lymph % (Auto) Grant % (Auto) Eos % (Auto) Seg Neutrophils % Seg Neuts % (Manual) Lymphocytes % (Manual) Seg Neutrophils # Seg Neutrophils # Man Lymphocytes # (Manual) APTT POC ABG pH ABG pH 7.457 H POC ABG pCO2 POC ABG pO2 ABG pO2 55.1 L ABG HCO3 19.4 L ABG Base Excess -4.0 L ABG Hemoglobin 6.8 L VBG pH Oxyhemoglobin 94.9 L Sodium Potassium Chloride Carbon Dioxide BUN Creatinine Glucose POC Glucose 271 H 236 H Lactic Acid Calcium AST Alkaline Phosphatase CK-MB (CK-2) CK-MB (CK-2) Rel Index Albumin TSH Urine WBC (Auto) Salicylates 01/16/17 01/17/17 01/17/17 21:39 04:10 04:10 WBC 4.4 L RBC 2.98 L Hgb 7.7 L Hct 23.3 L MCV 78 L MCH 26 L RDW 18.1 H Plt Count Lymph % (Auto) Grant % (Auto) Eos % (Auto) Seg Neutrophils % Seg Neuts % (Manual) Lymphocytes % (Manual) Seg Neutrophils # Seg Neutrophils # Man Lymphocytes # (Manual) APTT POC ABG pH ABG pH POC ABG pCO2 POC ABG pO2 ABG pO2 ABG HCO3 ABG Base Excess ABG Hemoglobin VBG pH Oxyhemoglobin Sodium Potassium 3.3 L Chloride 108.7 H Carbon Dioxide 20 L BUN 8 L Creatinine Glucose 202 H POC Glucose 258 H Lactic Acid Calcium 7.6 L AST Alkaline Phosphatase CK-MB (CK-2) CK-MB (CK-2) Rel Index Albumin TSH Urine WBC (Auto) Salicylates 01/17/17 01/17/17 01/17/17 04:35 12:23 16:01 WBC RBC Hgb Hct MCV MCH RDW Plt Count Lymph % (Auto) Grant % (Auto) Eos % (Auto) Seg Neutrophils % Seg Neuts % (Manual) Lymphocytes % (Manual) Seg Neutrophils # Seg Neutrophils # Man Lymphocytes # (Manual) APTT POC ABG pH ABG pH POC ABG pCO2 POC ABG pO2 ABG pO2 160.3 H ABG HCO3 ABG Base Excess -2.3 L ABG Hemoglobin 7.9 L VBG pH Oxyhemoglobin Sodium Potassium Chloride Carbon Dioxide BUN Creatinine Glucose POC Glucose 321 H 239 H Lactic Acid Calcium AST Alkaline Phosphatase CK-MB (CK-2) CK-MB (CK-2) Rel Index Albumin TSH Urine WBC (Auto) Salicylates 01/18/17 01/18/17 01/18/17 05:07 12:09 17:54 WBC RBC Hgb Hct MCV MCH RDW Plt Count Lymph % (Auto) Grant % (Auto) Eos % (Auto) Seg Neutrophils % Seg Neuts % (Manual) Lymphocytes % (Manual) Seg Neutrophils # Seg Neutrophils # Man Lymphocytes # (Manual) APTT POC ABG pH ABG pH POC ABG pCO2 POC ABG pO2 ABG pO2 ABG HCO3 ABG Base Excess ABG Hemoglobin VBG pH Oxyhemoglobin Sodium Potassium Chloride Carbon Dioxide BUN Creatinine Glucose POC Glucose 155 H 203 H 132 H Lactic Acid Calcium AST Alkaline Phosphatase CK-MB (CK-2) CK-MB (CK-2) Rel Index Albumin TSH Urine WBC (Auto) Salicylates 01/18/17 01/19/17 01/19/17 23:43 04:28 12:11 WBC RBC Hgb Hct MCV MCH RDW Plt Count Lymph % (Auto) Grant % (Auto) Eos % (Auto) Seg Neutrophils % Seg Neuts % (Manual) Lymphocytes % (Manual) Seg Neutrophils # Seg Neutrophils # Man Lymphocytes # (Manual) APTT POC ABG pH ABG pH POC ABG pCO2 POC ABG pO2 ABG pO2 ABG HCO3 ABG Base Excess ABG Hemoglobin VBG pH Oxyhemoglobin Sodium Potassium Chloride Carbon Dioxide BUN Creatinine Glucose POC Glucose 125 H 182 H 153 H Lactic Acid Calcium AST Alkaline Phosphatase CK-MB (CK-2) CK-MB (CK-2) Rel Index Albumin TSH Urine WBC (Auto) Salicylates 01/19/17 01/20/17 01/20/17 17:23 00:12 05:44 WBC RBC Hgb Hct MCV MCH RDW Plt Count Lymph % (Auto) Grant % (Auto) Eos % (Auto) Seg Neutrophils % Seg Neuts % (Manual) Lymphocytes % (Manual) Seg Neutrophils # Seg Neutrophils # Man Lymphocytes # (Manual) APTT POC ABG pH ABG pH POC ABG pCO2 POC ABG pO2 ABG pO2 ABG HCO3 ABG Base Excess ABG Hemoglobin VBG pH Oxyhemoglobin Sodium Potassium Chloride Carbon Dioxide BUN Creatinine Glucose POC Glucose 66 L 139 H 176 H Lactic Acid Calcium AST Alkaline Phosphatase CK-MB (CK-2) CK-MB (CK-2) Rel Index Albumin TSH Urine WBC (Auto) Salicylates 01/20/17 01/20/17 01/20/17 11:48 17:42 23:43 WBC RBC Hgb Hct MCV MCH RDW Plt Count Lymph % (Auto) Grant % (Auto) Eos % (Auto) Seg Neutrophils % Seg Neuts % (Manual) Lymphocytes % (Manual) Seg Neutrophils # Seg Neutrophils # Man Lymphocytes # (Manual) APTT POC ABG pH ABG pH POC ABG pCO2 POC ABG pO2 ABG pO2 ABG HCO3 ABG Base Excess ABG Hemoglobin VBG pH Oxyhemoglobin Sodium Potassium Chloride Carbon Dioxide BUN Creatinine Glucose POC Glucose 218 H 132 H 178 H Lactic Acid Calcium AST Alkaline Phosphatase CK-MB (CK-2) CK-MB (CK-2) Rel Index Albumin TSH Urine WBC (Auto) Salicylates 01/21/17 01/21/17 01/21/17 05:34 11:17 23:37 WBC RBC Hgb Hct MCV MCH RDW Plt Count Lymph % (Auto) Grant % (Auto) Eos % (Auto) Seg Neutrophils % Seg Neuts % (Manual) Lymphocytes % (Manual) Seg Neutrophils # Seg Neutrophils # Man Lymphocytes # (Manual) APTT POC ABG pH ABG pH POC ABG pCO2 POC ABG pO2 ABG pO2 ABG HCO3 ABG Base Excess ABG Hemoglobin VBG pH Oxyhemoglobin Sodium Potassium Chloride Carbon Dioxide BUN Creatinine Glucose POC Glucose 106 H 213 H 140 H Lactic Acid Calcium AST Alkaline Phosphatase CK-MB (CK-2) CK-MB (CK-2) Rel Index Albumin TSH Urine WBC (Auto) Salicylates 01/22/17 01/22/17 01/22/17 04:00 04:00 04:58 WBC RBC 3.26 L Hgb 8.3 L Hct 25.5 L MCV 78 L MCH 25 L RDW 17.9 H Plt Count Lymph % (Auto) Grant % (Auto) 7.9 H Eos % (Auto) 6.2 H Seg Neutrophils % Seg Neuts % (Manual) Lymphocytes % (Manual) Seg Neutrophils # Seg Neutrophils # Man Lymphocytes # (Manual) APTT POC ABG pH ABG pH POC ABG pCO2 POC ABG pO2 ABG pO2 ABG HCO3 ABG Base Excess ABG Hemoglobin VBG pH Oxyhemoglobin Sodium Potassium Chloride 95.5 L Carbon Dioxide 31 H D BUN Creatinine Glucose 134 H POC Glucose 146 H Lactic Acid Calcium AST 44 H Alkaline Phosphatase 379 H CK-MB (CK-2) CK-MB (CK-2) Rel Index Albumin 2.7 L TSH Urine WBC (Auto) Salicylates 01/22/17 01/22/17 01/22/17 12:12 18:12 23:39 WBC RBC Hgb Hct MCV MCH RDW Plt Count Lymph % (Auto) Grant % (Auto) Eos % (Auto) Seg Neutrophils % Seg Neuts % (Manual) Lymphocytes % (Manual) Seg Neutrophils # Seg Neutrophils # Man Lymphocytes # (Manual) APTT POC ABG pH ABG pH POC ABG pCO2 POC ABG pO2 ABG pO2 ABG HCO3 ABG Base Excess ABG Hemoglobin VBG pH Oxyhemoglobin Sodium Potassium Chloride Carbon Dioxide BUN Creatinine Glucose POC Glucose 255 H 182 H 134 H Lactic Acid Calcium AST Alkaline Phosphatase CK-MB (CK-2) CK-MB (CK-2) Rel Index Albumin TSH Urine WBC (Auto) Salicylates 01/23/17 01/23/17 01/23/17 04:43 12:12 17:36 WBC RBC Hgb Hct MCV MCH RDW Plt Count Lymph % (Auto) Grant % (Auto) Eos % (Auto) Seg Neutrophils % Seg Neuts % (Manual) Lymphocytes % (Manual) Seg Neutrophils # Seg Neutrophils # Man Lymphocytes # (Manual) APTT POC ABG pH ABG pH POC ABG pCO2 POC ABG pO2 ABG pO2 ABG HCO3 ABG Base Excess ABG Hemoglobin VBG pH Oxyhemoglobin Sodium Potassium Chloride Carbon Dioxide BUN Creatinine Glucose POC Glucose 218 H 128 H 156 H Lactic Acid Calcium AST Alkaline Phosphatase CK-MB (CK-2) CK-MB (CK-2) Rel Index Albumin TSH Urine WBC (Auto) Salicylates 01/24/17 01/24/17 01/24/17 00:08 05:16 11:40 WBC RBC Hgb Hct MCV MCH RDW Plt Count Lymph % (Auto) Grant % (Auto) Eos % (Auto) Seg Neutrophils % Seg Neuts % (Manual) Lymphocytes % (Manual) Seg Neutrophils # Seg Neutrophils # Man Lymphocytes # (Manual) APTT POC ABG pH ABG pH POC ABG pCO2 POC ABG pO2 ABG pO2 ABG HCO3 ABG Base Excess ABG Hemoglobin VBG pH Oxyhemoglobin Sodium Potassium Chloride Carbon Dioxide BUN Creatinine Glucose POC Glucose 129 H 169 H 187 H Lactic Acid Calcium AST Alkaline Phosphatase CK-MB (CK-2) CK-MB (CK-2) Rel Index Albumin TSH Urine WBC (Auto) Salicylates 01/24/17 01/24/17 01/25/17 17:43 23:23 04:56 WBC RBC Hgb Hct MCV MCH RDW Plt Count Lymph % (Auto) Grant % (Auto) Eos % (Auto) Seg Neutrophils % Seg Neuts % (Manual) Lymphocytes % (Manual) Seg Neutrophils # Seg Neutrophils # Man Lymphocytes # (Manual) APTT POC ABG pH ABG pH POC ABG pCO2 POC ABG pO2 ABG pO2 ABG HCO3 ABG Base Excess ABG Hemoglobin VBG pH Oxyhemoglobin Sodium Potassium Chloride Carbon Dioxide BUN Creatinine Glucose POC Glucose 215 H 222 H 210 H Lactic Acid Calcium AST Alkaline Phosphatase CK-MB (CK-2) CK-MB (CK-2) Rel Index Albumin TSH Urine WBC (Auto) Salicylates 01/25/17 01/25/17 01/26/17 11:52 17:37 00:02 WBC RBC Hgb Hct MCV MCH RDW Plt Count Lymph % (Auto) Grant % (Auto) Eos % (Auto) Seg Neutrophils % Seg Neuts % (Manual) Lymphocytes % (Manual) Seg Neutrophils # Seg Neutrophils # Man Lymphocytes # (Manual) APTT POC ABG pH ABG pH POC ABG pCO2 POC ABG pO2 ABG pO2 ABG HCO3 ABG Base Excess ABG Hemoglobin VBG pH Oxyhemoglobin Sodium Potassium Chloride Carbon Dioxide BUN Creatinine Glucose POC Glucose 284 H 218 H 192 H Lactic Acid Calcium AST Alkaline Phosphatase CK-MB (CK-2) CK-MB (CK-2) Rel Index Albumin TSH Urine WBC (Auto) Salicylates 01/26/17 01/26/17 01/26/17 05:33 12:17 17:50 WBC RBC Hgb Hct MCV MCH RDW Plt Count Lymph % (Auto) Grant % (Auto) Eos % (Auto) Seg Neutrophils % Seg Neuts % (Manual) Lymphocytes % (Manual) Seg Neutrophils # Seg Neutrophils # Man Lymphocytes # (Manual) APTT POC ABG pH ABG pH POC ABG pCO2 POC ABG pO2 ABG pO2 ABG HCO3 ABG Base Excess ABG Hemoglobin VBG pH Oxyhemoglobin Sodium Potassium Chloride Carbon Dioxide BUN Creatinine Glucose POC Glucose 199 H 227 H 229 H Lactic Acid Calcium AST Alkaline Phosphatase CK-MB (CK-2) CK-MB (CK-2) Rel Index Albumin TSH Urine WBC (Auto) Salicylates 01/26/17 01/27/17 01/27/17 23:57 05:31 11:42 WBC RBC Hgb Hct MCV MCH RDW Plt Count Lymph % (Auto) Grant % (Auto) Eos % (Auto) Seg Neutrophils % Seg Neuts % (Manual) Lymphocytes % (Manual) Seg Neutrophils # Seg Neutrophils # Man Lymphocytes # (Manual) APTT POC ABG pH ABG pH POC ABG pCO2 POC ABG pO2 ABG pO2 ABG HCO3 ABG Base Excess ABG Hemoglobin VBG pH Oxyhemoglobin Sodium Potassium Chloride Carbon Dioxide BUN Creatinine Glucose POC Glucose 186 H 285 H 260 H Lactic Acid Calcium AST Alkaline Phosphatase CK-MB (CK-2) CK-MB (CK-2) Rel Index Albumin TSH Urine WBC (Auto) Salicylates 01/27/17 01/27/17 01/27/17 17:47 23:58 Unknown WBC 12.1 H RBC 3.28 L Hgb 8.5 L Hct 25.5 L MCV 78 L MCH 26 L RDW 16.8 H Plt Count 601 H Lymph % (Auto) Grant % (Auto) Eos % (Auto) Seg Neutrophils % Seg Neuts % (Manual) Lymphocytes % (Manual) Seg Neutrophils # Seg Neutrophils # Man Lymphocytes # (Manual) APTT POC ABG pH ABG pH POC ABG pCO2 POC ABG pO2 ABG pO2 ABG HCO3 ABG Base Excess ABG Hemoglobin VBG pH Oxyhemoglobin Sodium Potassium Chloride Carbon Dioxide BUN Creatinine Glucose POC Glucose 329 H 225 H Lactic Acid Calcium AST Alkaline Phosphatase CK-MB (CK-2) CK-MB (CK-2) Rel Index Albumin TSH Urine WBC (Auto) Salicylates 01/27/17 01/28/17 01/28/17 Unknown 03:44 03:44 WBC RBC 3.14 L Hgb 8.2 L Hct 24.1 L MCV 77 L MCH 26 L RDW 16.9 H Plt Count 567 H Lymph % (Auto) Grant % (Auto) Eos % (Auto) Seg Neutrophils % Seg Neuts % (Manual) Lymphocytes % (Manual) Seg Neutrophils # Seg Neutrophils # Man Lymphocytes # (Manual) APTT POC ABG pH ABG pH POC ABG pCO2 POC ABG pO2 ABG pO2 ABG HCO3 ABG Base Excess ABG Hemoglobin VBG pH Oxyhemoglobin Sodium 128 L Potassium 5.4 H Chloride 87.5 L Carbon Dioxide BUN 44 H 42 H Creatinine Glucose 250 H 128 H POC Glucose Lactic Acid Calcium AST Alkaline Phosphatase CK-MB (CK-2) CK-MB (CK-2) Rel Index Albumin TSH Urine WBC (Auto) Salicylates 01/28/17 01/28/17 01/28/17 11:43 16:47 17:52 WBC RBC Hgb Hct MCV MCH RDW Plt Count Lymph % (Auto) Grant % (Auto) Eos % (Auto) Seg Neutrophils % Seg Neuts % (Manual) Lymphocytes % (Manual) Seg Neutrophils # Seg Neutrophils # Man Lymphocytes # (Manual) APTT POC ABG pH ABG pH POC ABG pCO2 POC ABG pO2 ABG pO2 ABG HCO3 ABG Base Excess ABG Hemoglobin VBG pH Oxyhemoglobin Sodium Potassium Chloride Carbon Dioxide BUN Creatinine Glucose POC Glucose 351 H 249 H Lactic Acid Calcium AST Alkaline Phosphatase CK-MB (CK-2) CK-MB (CK-2) Rel Index Albumin TSH Urine WBC (Auto) > 182.0 H Salicylates 01/29/17 01/29/17 01/29/17 05:25 05:25 09:32 WBC 13.6 H RBC 3.25 L Hgb 8.3 L Hct 25.1 L MCV 77 L MCH 26 L RDW 16.8 H Plt Count 514 H Lymph % (Auto) [place] % (Auto) Eos % (Auto) Seg Neutrophils % Seg Neuts % (Manual) Lymphocytes % (Manual) Seg Neutrophils # Seg Neutrophils # Man Lymphocytes # (Manual) APTT POC ABG pH ABG pH POC ABG pCO2 POC ABG pO2 ABG pO2 ABG HCO3 ABG Base Excess ABG Hemoglobin VBG pH Oxyhemoglobin Sodium Potassium Chloride 97.8 L Carbon Dioxide BUN 34 H Creatinine Glucose 222 H POC Glucose Lactic Acid 2.50 H* Calcium AST Alkaline Phosphatase CK-MB (CK-2) CK-MB (CK-2) Rel Index Albumin TSH Urine WBC (Auto) Salicylates 01/29/17 01/29/17 01/29/17 11:56 18:11 23:55 WBC RBC Hgb Hct MCV MCH RDW Plt Count Lymph % (Auto) [place] % (Auto) Eos % (Auto) Seg Neutrophils % Seg Neuts % (Manual) Lymphocytes % (Manual) Seg Neutrophils # Seg Neutrophils # Man Lymphocytes # (Manual) APTT POC ABG pH ABG pH POC ABG pCO2 POC ABG pO2 ABG pO2 ABG HCO3 ABG Base Excess ABG Hemoglobin VBG pH Oxyhemoglobin Sodium Potassium Chloride Carbon Dioxide BUN Creatinine Glucose POC Glucose 261 H 215 H 176 H Lactic Acid Calcium AST Alkaline Phosphatase CK-MB (CK-2) CK-MB (CK-2) Rel Index Albumin TSH Urine WBC (Auto) Salicylates 01/30/17 01/30/17 01/30/17 05:31 05:31 05:34 WBC 15.2 H RBC 3.09 L Hgb 7.9 L Hct 23.9 L MCV 77 L MCH 26 L RDW 16.9 H Plt Count 569 H Lymph % (Auto) [place] % (Auto) Eos % (Auto) Seg Neutrophils % Seg Neuts % (Manual) Lymphocytes % (Manual) Seg Neutrophils # Seg Neutrophils # Man Lymphocytes # (Manual) APTT POC ABG pH ABG pH POC ABG pCO2 POC ABG pO2 ABG pO2 ABG HCO3 ABG Base Excess ABG Hemoglobin VBG pH Oxyhemoglobin Sodium Potassium Chloride Carbon Dioxide BUN 24 H Creatinine Glucose 235 H POC Glucose 243 H Lactic Acid Calcium AST Alkaline Phosphatase CK-MB (CK-2) CK-MB (CK-2) Rel Index Albumin TSH Urine WBC (Auto) Salicylates 01/30/17 01/30/17 01/30/17 11:38 17:58 23:29 WBC RBC Hgb Hct MCV MCH RDW Plt Count Lymph % (Auto) [place] % (Auto) Eos % (Auto) Seg Neutrophils % Seg Neuts % (Manual) Lymphocytes % (Manual) Seg Neutrophils # Seg Neutrophils # Man Lymphocytes # (Manual) APTT POC ABG pH ABG pH POC ABG pCO2 POC ABG pO2 ABG pO2 ABG HCO3 ABG Base Excess ABG Hemoglobin VBG pH Oxyhemoglobin Sodium Potassium Chloride Carbon Dioxide BUN Creatinine Glucose POC Glucose 298 H 208 H 245 H Lactic Acid Calcium AST Alkaline Phosphatase CK-MB (CK-2) CK-MB (CK-2) Rel Index Albumin TSH Urine WBC (Auto) Salicylates 01/31/17 01/31/17 01/31/17 04:39 04:39 05:57 WBC 11.4 H RBC 3.22 L Hgb 8.2 L Hct 24.9 L MCV 78 L MCH 25 L RDW 17.2 H Plt Count 576 H Lymph % (Auto) [place] % (Auto) Eos % (Auto) Seg Neutrophils % Seg Neuts % (Manual) Lymphocytes % (Manual) Seg Neutrophils # Seg Neutrophils # Man Lymphocytes # (Manual) APTT POC ABG pH ABG pH POC ABG pCO2 POC ABG pO2 ABG pO2 ABG HCO3 ABG Base Excess ABG Hemoglobin VBG pH Oxyhemoglobin Sodium Potassium Chloride Carbon Dioxide BUN Creatinine 0.7 L Glucose 223 H POC Glucose 264 H Lactic Acid Calcium AST Alkaline Phosphatase CK-MB (CK-2) CK-MB (CK-2) Rel Index Albumin TSH Urine WBC (Auto) Salicylates 01/31/17 01/31/17 01/31/17 12:23 17:41 18:55 WBC RBC Hgb Hct MCV MCH RDW Plt Count Lymph % (Auto) [place] % (Auto) Eos % (Auto) Seg Neutrophils % Seg Neuts % (Manual) Lymphocytes % (Manual) Seg Neutrophils # Seg Neutrophils # Man Lymphocytes # (Manual) APTT POC ABG pH ABG pH POC ABG pCO2 32.8 L POC ABG pO2 ABG pO2 ABG HCO3 ABG Base Excess ABG Hemoglobin VBG pH Oxyhemoglobin Sodium Potassium Chloride Carbon Dioxide BUN Creatinine Glucose POC Glucose 252 H 208 H Lactic Acid Calcium AST Alkaline Phosphatase CK-MB (CK-2) CK-MB (CK-2) Rel Index Albumin TSH Urine WBC (Auto) Salicylates 01/31/17 02/01/17 02/01/17 22:59 03:38 03:38 WBC RBC 2.81 L Hgb 7.4 L Hct 22.1 L MCV 79 L MCH 27 L RDW 17.0 H Plt Count 540 H Lymph % (Auto) [place] % (Auto) Eos % (Auto) Seg Neutrophils % Seg Neuts % (Manual) Lymphocytes % (Manual) Seg Neutrophils # Seg Neutrophils # Man Lymphocytes # (Manual) APTT POC ABG pH ABG pH POC ABG pCO2 POC ABG pO2 ABG pO2 ABG HCO3 ABG Base Excess ABG Hemoglobin VBG pH Oxyhemoglobin Sodium Potassium Chloride Carbon Dioxide 21 L BUN Creatinine 0.7 L Glucose POC Glucose 40 L Lactic Acid Calcium AST Alkaline Phosphatase CK-MB (CK-2) CK-MB (CK-2) Rel Index Albumin TSH Urine WBC (Auto) Salicylates 02/01/17 02/01/17 02/01/17 05:17 12:19 16:44 WBC RBC Hgb Hct MCV MCH RDW Plt Count Lymph % (Auto) [place] % (Auto) Eos % (Auto) Seg Neutrophils % Seg Neuts % (Manual) Lymphocytes % (Manual) Seg Neutrophils # Seg Neutrophils # Man Lymphocytes # (Manual) APTT POC ABG pH ABG pH POC ABG pCO2 POC ABG pO2 ABG pO2 ABG HCO3 ABG Base Excess ABG Hemoglobin VBG pH Oxyhemoglobin Sodium Potassium Chloride Carbon Dioxide BUN Creatinine Glucose POC Glucose 140 H 213 H 172 H Lactic Acid Calcium AST Alkaline Phosphatase CK-MB (CK-2) CK-MB (CK-2) Rel Index Albumin TSH Urine WBC (Auto) Salicylates 02/01/17 02/02/17 02/02/17 23:59 05:14 11:24 WBC RBC Hgb Hct MCV MCH RDW Plt Count Lymph % (Auto) [place] % (Auto) Eos % (Auto) Seg Neutrophils % Seg Neuts % (Manual) Lymphocytes % (Manual) Seg Neutrophils # Seg Neutrophils # Man Lymphocytes # (Manual) APTT POC ABG pH ABG pH POC ABG pCO2 POC ABG pO2 ABG pO2 ABG HCO3 ABG Base Excess ABG Hemoglobin VBG pH Oxyhemoglobin Sodium Potassium Chloride Carbon Dioxide BUN Creatinine Glucose POC Glucose 181 H 194 H 209 H Lactic Acid Calcium AST Alkaline Phosphatase CK-MB (CK-2) CK-MB (CK-2) Rel Index Albumin TSH Urine WBC (Auto) Salicylates 02/02/17 02/02/17 02/02/17 11:46 11:46 17:47 WBC RBC 2.94 L Hgb 7.5 L Hct 23.0 L MCV 78 L MCH 25 L RDW 16.9 H Plt Count 520 H Lymph % (Auto) [place] % (Auto) Eos % (Auto) Seg Neutrophils % Seg Neuts % (Manual) Lymphocytes % (Manual) Seg Neutrophils # Seg Neutrophils # Man Lymphocytes # (Manual) APTT POC ABG pH ABG pH POC ABG pCO2 POC ABG pO2 ABG pO2 ABG HCO3 ABG Base Excess ABG Hemoglobin VBG pH Oxyhemoglobin Sodium Potassium Chloride Carbon Dioxide BUN Creatinine 0.6 L Glucose 189 H POC Glucose 147 H Lactic Acid Calcium 8.1 L AST Alkaline Phosphatase CK-MB (CK-2) CK-MB (CK-2) Rel Index Albumin TSH Urine WBC (Auto) Salicylates 02/02/17 02/03/17 02/03/17 23:32 05:53 11:19 WBC RBC Hgb Hct MCV MCH RDW Plt Count Lymph % (Auto) [place] % (Auto) Eos % (Auto) Seg Neutrophils % Seg Neuts % (Manual) Lymphocytes % (Manual) Seg Neutrophils # Seg Neutrophils # Man Lymphocytes # (Manual) APTT POC ABG pH ABG pH POC ABG pCO2 POC ABG pO2 ABG pO2 ABG HCO3 ABG Base Excess ABG Hemoglobin VBG pH Oxyhemoglobin Sodium Potassium Chloride Carbon Dioxide BUN Creatinine Glucose POC Glucose 176 H 224 H 228 H Lactic Acid Calcium AST Alkaline Phosphatase CK-MB (CK-2) CK-MB (CK-2) Rel Index Albumin TSH Urine WBC (Auto) Salicylates 02/03/17 02/03/17 02/04/17 16:59 23:38 05:45 WBC RBC Hgb Hct MCV MCH RDW Plt Count Lymph % (Auto) [place] % (Auto) Eos % (Auto) Seg Neutrophils % Seg Neuts % (Manual) Lymphocytes % (Manual) Seg Neutrophils # Seg Neutrophils # Man Lymphocytes # (Manual) APTT POC ABG pH ABG pH POC ABG pCO2 POC ABG pO2 ABG pO2 ABG HCO3 ABG Base Excess ABG Hemoglobin VBG pH Oxyhemoglobin Sodium Potassium Chloride Carbon Dioxide BUN Creatinine Glucose POC Glucose 189 H 191 H 251 H Lactic Acid Calcium AST Alkaline Phosphatase CK-MB (CK-2) CK-MB (CK-2) Rel Index Albumin TSH Urine WBC (Auto) Salicylates 02/04/17 02/04/17 02/05/17 11:20 17:20 00:17 WBC RBC Hgb Hct MCV MCH RDW Plt Count Lymph % (Auto) [place] % (Auto) Eos % (Auto) Seg Neutrophils % Seg Neuts % (Manual) Lymphocytes % (Manual) Seg Neutrophils # Seg Neutrophils # Man Lymphocytes # (Manual) APTT POC ABG pH ABG pH POC ABG pCO2 POC ABG pO2 ABG pO2 ABG HCO3 ABG Base Excess ABG Hemoglobin VBG pH Oxyhemoglobin Sodium Potassium Chloride Carbon Dioxide BUN Creatinine Glucose POC Glucose 243 H 163 H 200 H Lactic Acid Calcium AST Alkaline Phosphatase CK-MB (CK-2) CK-MB (CK-2) Rel Index Albumin TSH Urine WBC (Auto) Salicylates 02/05/17 02/05/17 02/05/17 05:38 12:38 16:29 WBC RBC Hgb Hct MCV MCH RDW Plt Count Lymph % (Auto) [place] % (Auto) Eos % (Auto) Seg Neutrophils % Seg Neuts % (Manual) Lymphocytes % (Manual) Seg Neutrophils # Seg Neutrophils # Man Lymphocytes # (Manual) APTT POC ABG pH ABG pH POC ABG pCO2 POC ABG pO2 ABG pO2 ABG HCO3 ABG Base Excess ABG Hemoglobin VBG pH Oxyhemoglobin Sodium Potassium Chloride Carbon Dioxide BUN Creatinine Glucose POC Glucose 248 H 241 H 257 H Lactic Acid Calcium AST Alkaline Phosphatase CK-MB (CK-2) CK-MB (CK-2) Rel Index Albumin TSH Urine WBC (Auto) Salicylates 02/05/17 02/06/17 02/06/17 23:56 05:30 11:50 WBC RBC Hgb Hct MCV MCH RDW Plt Count Lymph % (Auto) [place] % (Auto) Eos % (Auto) Seg Neutrophils % Seg Neuts % (Manual) Lymphocytes % (Manual) Seg Neutrophils # Seg Neutrophils # Man Lymphocytes # (Manual) APTT POC ABG pH ABG pH POC ABG pCO2 POC ABG pO2 ABG pO2 ABG HCO3 ABG Base Excess ABG Hemoglobin VBG pH Oxyhemoglobin Sodium Potassium Chloride Carbon Dioxide BUN Creatinine Glucose POC Glucose 258 H 120 H 254 H Lactic Acid Calcium AST Alkaline Phosphatase CK-MB (CK-2) CK-MB (CK-2) Rel Index Albumin TSH Urine WBC (Auto) Salicylates 02/06/17 02/06/17 02/07/17 17:11 23:50 05:22 WBC RBC Hgb Hct MCV MCH RDW Plt Count Lymph % (Auto) [place] % (Auto) Eos % (Auto) Seg Neutrophils % Seg Neuts % (Manual) Lymphocytes % (Manual) Seg Neutrophils # Seg Neutrophils # Man Lymphocytes # (Manual) APTT POC ABG pH ABG pH POC ABG pCO2 POC ABG pO2 ABG pO2 ABG HCO3 ABG Base Excess ABG Hemoglobin VBG pH Oxyhemoglobin Sodium Potassium Chloride Carbon Dioxide BUN Creatinine Glucose POC Glucose 149 H 240 H 258 H Lactic Acid Calcium AST Alkaline Phosphatase CK-MB (CK-2) CK-MB (CK-2) Rel Index Albumin TSH Urine WBC (Auto) Salicylates 02/07/17 02/07/17 02/07/17 11:15 18:33 23:59 WBC RBC Hgb Hct MCV MCH RDW Plt Count Lymph % (Auto) [place] % (Auto) Eos % (Auto) Seg Neutrophils % Seg Neuts % (Manual) Lymphocytes % (Manual) Seg Neutrophils # Seg Neutrophils # Man Lymphocytes # (Manual) APTT POC ABG pH ABG pH POC ABG pCO2 POC ABG pO2 ABG pO2 ABG HCO3 ABG Base Excess ABG Hemoglobin VBG pH Oxyhemoglobin Sodium Potassium Chloride Carbon Dioxide BUN Creatinine Glucose POC Glucose 239 H 176 H 186 H Lactic Acid Calcium AST Alkaline Phosphatase CK-MB (CK-2) CK-MB (CK-2) Rel Index Albumin TSH Urine WBC (Auto) Salicylates 02/08/17 02/08/17 02/08/17 06:15 11:55 16:55 WBC RBC Hgb Hct MCV MCH RDW Plt Count Lymph % (Auto) [place] % (Auto) Eos % (Auto) Seg Neutrophils % Seg Neuts % (Manual) Lymphocytes % (Manual) Seg Neutrophils # Seg Neutrophils # Man Lymphocytes # (Manual) APTT POC ABG pH ABG pH POC ABG pCO2 POC ABG pO2 ABG pO2 ABG HCO3 ABG Base Excess ABG Hemoglobin VBG pH Oxyhemoglobin Sodium Potassium Chloride Carbon Dioxide BUN Creatinine Glucose POC Glucose 195 H 129 H 246 H Lactic Acid Calcium AST Alkaline Phosphatase CK-MB (CK-2) CK-MB (CK-2) Rel Index Albumin TSH Urine WBC (Auto) Salicylates 02/08/17 02/09/17 02/09/17 23:51 05:51 07:24 WBC 14.7 H RBC 3.39 L Hgb 8.9 L Hct 26.4 L MCV 78 L MCH 26 L RDW 18.4 H Plt Count 670 H Lymph % (Auto) 11.8 L [place] % (Auto) Eos % (Auto) Seg Neutrophils % 81.2 H Seg Neuts % (Manual) Lymphocytes % (Manual) Seg Neutrophils # 11.9 H Seg Neutrophils # Man Lymphocytes # (Manual) APTT POC ABG pH ABG pH POC ABG pCO2 POC ABG pO2 ABG pO2 ABG HCO3 ABG Base Excess ABG Hemoglobin VBG pH Oxyhemoglobin Sodium Potassium Chloride Carbon Dioxide BUN Creatinine Glucose POC Glucose 262 H 295 H Lactic Acid Calcium AST Alkaline Phosphatase CK-MB (CK-2) CK-MB (CK-2) Rel Index Albumin TSH Urine WBC (Auto) Salicylates 02/09/17 02/09/17 02/09/17 07:24 12:08 18:39 WBC RBC Hgb Hct MCV MCH RDW Plt Count Lymph % (Auto) [place] % (Auto) Eos % (Auto) Seg Neutrophils % Seg Neuts % (Manual) Lymphocytes % (Manual) Seg Neutrophils # Seg Neutrophils # Man Lymphocytes # (Manual) APTT POC ABG pH ABG pH POC ABG pCO2 POC ABG pO2 ABG pO2 ABG HCO3 ABG Base Excess ABG Hemoglobin VBG pH Oxyhemoglobin Sodium Potassium Chloride 95.5 L Carbon Dioxide BUN 52 H Creatinine Glucose 277 H POC Glucose 236 H 151 H Lactic Acid Calcium AST Alkaline Phosphatase CK-MB (CK-2) CK-MB (CK-2) Rel Index Albumin TSH Urine WBC (Auto) Salicylates 02/10/17 02/10/17 02/10/17 00:01 05:44 11:21 WBC RBC Hgb Hct MCV MCH RDW Plt Count Lymph % (Auto) [place] % (Auto) Eos % (Auto) Seg Neutrophils % Seg Neuts % (Manual) Lymphocytes % (Manual) Seg Neutrophils # Seg Neutrophils # Man Lymphocytes # (Manual) APTT POC ABG pH ABG pH POC ABG pCO2 POC ABG pO2 ABG pO2 ABG HCO3 ABG Base Excess ABG Hemoglobin VBG pH Oxyhemoglobin Sodium Potassium Chloride Carbon Dioxide BUN Creatinine Glucose POC Glucose 210 H 201 H 233 H Lactic Acid Calcium AST Alkaline Phosphatase CK-MB (CK-2) CK-MB (CK-2) Rel Index Albumin TSH Urine WBC (Auto) Salicylates 02/10/17 02/10/17 02/11/17 17:29 23:56 05:24 WBC RBC Hgb Hct MCV MCH RDW Plt Count Lymph % (Auto) [place] % (Auto) Eos % (Auto) Seg Neutrophils % Seg Neuts % (Manual) Lymphocytes % (Manual) Seg Neutrophils # Seg Neutrophils # Man Lymphocytes # (Manual) APTT POC ABG pH ABG pH POC ABG pCO2 POC ABG pO2 ABG pO2 ABG HCO3 ABG Base Excess ABG Hemoglobin VBG pH Oxyhemoglobin Sodium Potassium Chloride Carbon Dioxide BUN Creatinine Glucose POC Glucose 167 H 191 H 135 H Lactic Acid Calcium AST Alkaline Phosphatase CK-MB (CK-2) CK-MB (CK-2) Rel Index Albumin TSH Urine WBC (Auto) Salicylates 02/11/17 02/11/17 02/11/17 12:25 17:03 23:59 WBC RBC Hgb Hct MCV MCH RDW Plt Count Lymph % (Auto) [place] % (Auto) Eos % (Auto) Seg Neutrophils % Seg Neuts % (Manual) Lymphocytes % (Manual) Seg Neutrophils # Seg Neutrophils # Man Lymphocytes # (Manual) APTT POC ABG pH ABG pH POC ABG pCO2 POC ABG pO2 ABG pO2 ABG HCO3 ABG Base Excess ABG Hemoglobin VBG pH Oxyhemoglobin Sodium Potassium Chloride Carbon Dioxide BUN Creatinine Glucose POC Glucose 275 H 172 H 215 H Lactic Acid Calcium AST Alkaline Phosphatase CK-MB (CK-2) CK-MB (CK-2) Rel Index Albumin TSH Urine WBC (Auto) Salicylates 02/12/17 02/12/17 02/12/17 05:39 11:33 17:55 WBC RBC Hgb Hct MCV MCH RDW Plt Count Lymph % (Auto) [place] % (Auto) Eos % (Auto) Seg Neutrophils % Seg Neuts % (Manual) Lymphocytes % (Manual) Seg Neutrophils # Seg Neutrophils # Man Lymphocytes # (Manual) APTT POC ABG pH ABG pH POC ABG pCO2 POC ABG pO2 ABG pO2 ABG HCO3 ABG Base Excess ABG Hemoglobin VBG pH Oxyhemoglobin Sodium Potassium Chloride Carbon Dioxide BUN Creatinine Glucose POC Glucose 261 H 217 H 172 H Lactic Acid Calcium AST Alkaline Phosphatase CK-MB (CK-2) CK-MB (CK-2) Rel Index Albumin TSH Urine WBC (Auto) Salicylates 02/13/17 02/13/17 02/13/17 00:25 06:46 11:26 WBC RBC Hgb Hct MCV MCH RDW Plt Count Lymph % (Auto) [place] % (Auto) Eos % (Auto) Seg Neutrophils % Seg Neuts % (Manual) Lymphocytes % (Manual) Seg Neutrophils # Seg Neutrophils # Man Lymphocytes # (Manual) APTT POC ABG pH ABG pH POC ABG pCO2 POC ABG pO2 ABG pO2 ABG HCO3 ABG Base Excess ABG Hemoglobin VBG pH Oxyhemoglobin Sodium Potassium Chloride Carbon Dioxide BUN Creatinine Glucose POC Glucose 207 H 219 H 231 H Lactic Acid Calcium AST Alkaline Phosphatase CK-MB (CK-2) CK-MB (CK-2) Rel Index Albumin TSH Urine WBC (Auto) Salicylates 02/13/17 02/13/17 02/14/17 17:12 23:44 05:44 WBC RBC Hgb Hct MCV MCH RDW Plt Count Lymph % (Auto) [place] % (Auto) Eos % (Auto) Seg Neutrophils % Seg Neuts % (Manual) Lymphocytes % (Manual) Seg Neutrophils # Seg Neutrophils # Man Lymphocytes # (Manual) APTT POC ABG pH ABG pH POC ABG pCO2 POC ABG pO2 ABG pO2 ABG HCO3 ABG Base Excess ABG Hemoglobin VBG pH Oxyhemoglobin Sodium Potassium Chloride Carbon Dioxide BUN Creatinine Glucose POC Glucose 190 H 256 H 184 H Lactic Acid Calcium AST Alkaline Phosphatase CK-MB (CK-2) CK-MB (CK-2) Rel Index Albumin TSH Urine WBC (Auto) Salicylates 02/14/17 02/14/17 02/14/17 12:21 17:57 23:18 WBC RBC Hgb Hct MCV MCH RDW Plt Count Lymph % (Auto) [place] % (Auto) Eos % (Auto) Seg Neutrophils % Seg Neuts % (Manual) Lymphocytes % (Manual) Seg Neutrophils # Seg Neutrophils # Man Lymphocytes # (Manual) APTT POC ABG pH ABG pH POC ABG pCO2 POC ABG pO2 ABG pO2 ABG HCO3 ABG Base Excess ABG Hemoglobin VBG pH Oxyhemoglobin Sodium Potassium Chloride Carbon Dioxide BUN Creatinine Glucose POC Glucose 233 H 155 H 165 H Lactic Acid Calcium AST Alkaline Phosphatase CK-MB (CK-2) CK-MB (CK-2) Rel Index Albumin TSH Urine WBC (Auto) Salicylates 02/15/17 02/15/17 02/15/17 05:33 11:45 17:20 WBC RBC Hgb Hct MCV MCH RDW Plt Count Lymph % (Auto) [place] % (Auto) Eos % (Auto) Seg Neutrophils % Seg Neuts % (Manual) Lymphocytes % (Manual) Seg Neutrophils # Seg Neutrophils # Man Lymphocytes # (Manual) APTT POC ABG pH ABG pH POC ABG pCO2 POC ABG pO2 ABG pO2 ABG HCO3 ABG Base Excess ABG Hemoglobin VBG pH Oxyhemoglobin Sodium Potassium Chloride Carbon Dioxide BUN Creatinine Glucose POC Glucose 239 H 130 H 189 H Lactic Acid Calcium AST Alkaline Phosphatase CK-MB (CK-2) CK-MB (CK-2) Rel Index Albumin TSH Urine WBC (Auto) Salicylates 02/16/17 02/16/17 02/16/17 00:14 05:09 12:31 WBC RBC Hgb Hct MCV MCH RDW Plt Count Lymph % (Auto) [place] % (Auto) Eos % (Auto) Seg Neutrophils % Seg Neuts % (Manual) Lymphocytes % (Manual) Seg Neutrophils # Seg Neutrophils # Man Lymphocytes # (Manual) APTT POC ABG pH ABG pH POC ABG pCO2 POC ABG pO2 ABG pO2 ABG HCO3 ABG Base Excess ABG Hemoglobin VBG pH Oxyhemoglobin Sodium Potassium Chloride Carbon Dioxide BUN Creatinine Glucose POC Glucose 197 H 226 H 178 H Lactic Acid Calcium AST Alkaline Phosphatase CK-MB (CK-2) CK-MB (CK-2) Rel Index Albumin TSH Urine WBC (Auto) Salicylates 02/16/17 02/16/17 02/17/17 16:35 23:49 05:37 WBC RBC Hgb Hct MCV MCH RDW Plt Count Lymph % (Auto) [place] % (Auto) Eos % (Auto) Seg Neutrophils % Seg Neuts % (Manual) Lymphocytes % (Manual) Seg Neutrophils # Seg Neutrophils # Man Lymphocytes # (Manual) APTT POC ABG pH ABG pH POC ABG pCO2 POC ABG pO2 ABG pO2 ABG HCO3 ABG Base Excess ABG Hemoglobin VBG pH Oxyhemoglobin Sodium Potassium Chloride Carbon Dioxide BUN Creatinine Glucose POC Glucose 174 H 62 L 153 H Lactic Acid Calcium AST Alkaline Phosphatase CK-MB (CK-2) CK-MB (CK-2) Rel Index Albumin TSH Urine WBC (Auto) Salicylates 02/17/17 02/17/17 02/17/17 11:39 17:02 22:24 WBC RBC Hgb Hct MCV MCH RDW Plt Count Lymph % (Auto) [place] % (Auto) Eos % (Auto) Seg Neutrophils % Seg Neuts % (Manual) Lymphocytes % (Manual) Seg Neutrophils # Seg Neutrophils # Man Lymphocytes # (Manual) APTT POC ABG pH ABG pH POC ABG pCO2 POC ABG pO2 ABG pO2 ABG HCO3 ABG Base Excess ABG Hemoglobin VBG pH Oxyhemoglobin Sodium Potassium Chloride Carbon Dioxide BUN Creatinine Glucose POC Glucose 231 H 112 H 116 H Lactic Acid Calcium AST Alkaline Phosphatase CK-MB (CK-2) CK-MB (CK-2) Rel Index Albumin TSH Urine WBC (Auto) Salicylates 02/18/17 02/19/17 02/19/17 15:34 05:09 07:57 WBC RBC Hgb Hct MCV MCH RDW Plt Count Lymph % (Auto) [place] % (Auto) Eos % (Auto) Seg Neutrophils % Seg Neuts % (Manual) Lymphocytes % (Manual) Seg Neutrophils # Seg Neutrophils # Man Lymphocytes # (Manual) APTT POC ABG pH ABG pH POC ABG pCO2 POC ABG pO2 ABG pO2 ABG HCO3 ABG Base Excess ABG Hemoglobin VBG pH Oxyhemoglobin Sodium Potassium Chloride Carbon Dioxide BUN Creatinine Glucose POC Glucose 215 H 218 H 283 H Lactic Acid Calcium AST Alkaline Phosphatase CK-MB (CK-2) CK-MB (CK-2) Rel Index Albumin TSH Urine WBC (Auto) Salicylates 02/19/17 02/19/17 02/20/17 14:49 22:10 05:10 WBC RBC Hgb Hct MCV MCH RDW Plt Count Lymph % (Auto) [place] % (Auto) Eos % (Auto) Seg Neutrophils % Seg Neuts % (Manual) Lymphocytes % (Manual) Seg Neutrophils # Seg Neutrophils # Man Lymphocytes # (Manual) APTT POC ABG pH ABG pH POC ABG pCO2 POC ABG pO2 ABG pO2 ABG HCO3 ABG Base Excess ABG Hemoglobin VBG pH Oxyhemoglobin Sodium Potassium Chloride Carbon Dioxide BUN Creatinine Glucose POC Glucose 290 H 169 H 209 H Lactic Acid Calcium AST Alkaline Phosphatase CK-MB (CK-2) CK-MB (CK-2) Rel Index Albumin TSH Urine WBC (Auto) Salicylates 02/20/17 02/20/17 02/21/17 15:05 21:52 02:00 WBC RBC Hgb Hct MCV MCH RDW Plt Count Lymph % (Auto) [place] % (Auto) Eos % (Auto) Seg Neutrophils % Seg Neuts % (Manual) Lymphocytes % (Manual) Seg Neutrophils # Seg Neutrophils # Man Lymphocytes # (Manual) APTT POC ABG pH ABG pH POC ABG pCO2 POC ABG pO2 ABG pO2 ABG HCO3 ABG Base Excess ABG Hemoglobin VBG pH Oxyhemoglobin Sodium Potassium Chloride Carbon Dioxide BUN Creatinine Glucose POC Glucose 172 H 209 H 216 H Lactic Acid Calcium AST Alkaline Phosphatase CK-MB (CK-2) CK-MB (CK-2) Rel Index Albumin TSH Urine WBC (Auto) Salicylates 02/21/17 02/21/17 02/21/17 04:54 14:43 17:47 WBC RBC Hgb Hct MCV MCH RDW Plt Count Lymph % (Auto) [place] % (Auto) Eos % (Auto) Seg Neutrophils % Seg Neuts % (Manual) Lymphocytes % (Manual) Seg Neutrophils # Seg Neutrophils # Man Lymphocytes # (Manual) APTT POC ABG pH ABG pH POC ABG pCO2 POC ABG pO2 ABG pO2 ABG HCO3 ABG Base Excess ABG Hemoglobin VBG pH Oxyhemoglobin Sodium Potassium Chloride Carbon Dioxide BUN Creatinine Glucose POC Glucose 227 H 290 H 220 H Lactic Acid Calcium AST Alkaline Phosphatase CK-MB (CK-2) CK-MB (CK-2) Rel Index Albumin TSH Urine WBC (Auto) Salicylates 02/21/17 02/22/17 02/22/17 22:02 04:52 15:25 WBC RBC Hgb Hct MCV MCH RDW Plt Count Lymph % (Auto) Grant % (Auto) Eos % (Auto) Seg Neutrophils % Seg Neuts % (Manual) Lymphocytes % (Manual) Seg Neutrophils # Seg Neutrophils # Man Lymphocytes # (Manual) APTT POC ABG pH ABG pH POC ABG pCO2 POC ABG pO2 ABG pO2 ABG HCO3 ABG Base Excess ABG Hemoglobin VBG pH Oxyhemoglobin Sodium Potassium Chloride Carbon Dioxide BUN Creatinine Glucose POC Glucose 246 H 212 H 236 H Lactic Acid Calcium AST Alkaline Phosphatase CK-MB (CK-2) CK-MB (CK-2) Rel Index Albumin TSH Urine WBC (Auto) Salicylates 02/22/17 02/23/17 02/23/17 21:33 06:04 10:00 WBC RBC Hgb Hct MCV MCH RDW Plt Count Lymph % (Auto) Grant % (Auto) Eos % (Auto) Seg Neutrophils % Seg Neuts % (Manual) Lymphocytes % (Manual) Seg Neutrophils # Seg Neutrophils # Man Lymphocytes # (Manual) APTT POC ABG pH ABG pH POC ABG pCO2 POC ABG pO2 ABG pO2 ABG HCO3 ABG Base Excess ABG Hemoglobin VBG pH Oxyhemoglobin Sodium Potassium Chloride Carbon Dioxide BUN Creatinine Glucose POC Glucose 255 H 208 H 174 H Lactic Acid Calcium AST Alkaline Phosphatase CK-MB (CK-2) CK-MB (CK-2) Rel Index Albumin TSH Urine WBC (Auto) Salicylates 1102/23/17 02/23/17 12:52 17:15 21:51 WBC RBC Hgb Hct MCV MCH RDW Plt Count Lymph % (Auto) Grant % (Auto) Eos % (Auto) Seg Neutrophils % Seg Neuts % (Manual) Lymphocytes % (Manual) Seg Neutrophils # Seg Neutrophils # Man Lymphocytes # (Manual) APTT POC ABG pH ABG pH POC ABG pCO2 POC ABG pO2 ABG pO2 ABG HCO3 ABG Base Excess ABG Hemoglobin VBG pH Oxyhemoglobin Sodium Potassium Chloride Carbon Dioxide BUN Creatinine Glucose POC Glucose 203 H 269 H 205 H Lactic Acid Calcium AST Alkaline Phosphatase CK-MB (CK-2) CK-MB (CK-2) Rel Index Albumin TSH Urine WBC (Auto) Salicylates 02/24/17 02/24/17 02/24/17 10:23 17:45 21:24 WBC RBC Hgb Hct MCV MCH RDW Plt Count Lymph % (Auto) Grant % (Auto) Eos % (Auto) Seg Neutrophils % Seg Neuts % (Manual) Lymphocytes % (Manual) Seg Neutrophils # Seg Neutrophils # Man Lymphocytes # (Manual) APTT POC ABG pH ABG pH POC ABG pCO2 POC ABG pO2 ABG pO2 ABG HCO3 ABG Base Excess ABG Hemoglobin VBG pH Oxyhemoglobin Sodium Potassium Chloride Carbon Dioxide BUN Creatinine Glucose POC Glucose 280 H 239 H 254 H Lactic Acid Calcium AST Alkaline Phosphatase CK-MB (CK-2) CK-MB (CK-2) Rel Index Albumin TSH Urine WBC (Auto) Salicylates 02/25/17 02/25/17 02/25/17 02:12 05:17 14:32 WBC RBC Hgb Hct MCV MCH RDW Plt Count Lymph % (Auto) Grant % (Auto) Eos % (Auto) Seg Neutrophils % Seg Neuts % (Manual) Lymphocytes % (Manual) Seg Neutrophils # Seg Neutrophils # Man Lymphocytes # (Manual) APTT POC ABG pH ABG pH POC ABG pCO2 POC ABG pO2 ABG pO2 ABG HCO3 ABG Base Excess ABG Hemoglobin VBG pH Oxyhemoglobin Sodium Potassium Chloride Carbon Dioxide BUN Creatinine Glucose POC Glucose 296 H 332 H 353 H Lactic Acid Calcium AST Alkaline Phosphatase CK-MB (CK-2) CK-MB (CK-2) Rel Index Albumin TSH Urine WBC (Auto) Salicylates 02/25/17 02/26/17 02/26/17 22:14 00:37 05:52 WBC RBC Hgb Hct MCV MCH RDW Plt Count Lymph % (Auto) Grant % (Auto) Eos % (Auto) Seg Neutrophils % Seg Neuts % (Manual) Lymphocytes % (Manual) Seg Neutrophils # Seg Neutrophils # Man Lymphocytes # (Manual) APTT POC ABG pH ABG pH POC ABG pCO2 POC ABG pO2 ABG pO2 ABG HCO3 ABG Base Excess ABG Hemoglobin VBG pH Oxyhemoglobin Sodium Potassium Chloride Carbon Dioxide BUN Creatinine Glucose POC Glucose 201 H 233 H 269 H Lactic Acid Calcium AST Alkaline Phosphatase CK-MB (CK-2) CK-MB (CK-2) Rel Index Albumin TSH Urine WBC (Auto) Salicylates 02/26/17 02/26/17 02/26/17 11:48 13:49 21:26 WBC RBC Hgb Hct MCV MCH RDW Plt Count Lymph % (Auto) Grant % (Auto) Eos % (Auto) Seg Neutrophils % Seg Neuts % (Manual) Lymphocytes % (Manual) Seg Neutrophils # Seg Neutrophils # Man Lymphocytes # (Manual) APTT POC ABG pH ABG pH POC ABG pCO2 POC ABG pO2 ABG pO2 ABG HCO3 ABG Base Excess ABG Hemoglobin VBG pH Oxyhemoglobin Sodium Potassium Chloride Carbon Dioxide BUN Creatinine Glucose POC Glucose 333 H 322 H 244 H Lactic Acid Calcium AST Alkaline Phosphatase CK-MB (CK-2) CK-MB (CK-2) Rel Index Albumin TSH Urine WBC (Auto) Salicylates 02/27/17 02/27/17 02/27/17 05:27 13:51 21:48 WBC RBC Hgb Hct MCV MCH RDW Plt Count Lymph % (Auto) Grant % (Auto) Eos % (Auto) Seg Neutrophils % Seg Neuts % (Manual) Lymphocytes % (Manual) Seg Neutrophils # Seg Neutrophils # Man Lymphocytes # (Manual) APTT POC ABG pH ABG pH POC ABG pCO2 POC ABG pO2 ABG pO2 ABG HCO3 ABG Base Excess ABG Hemoglobin VBG pH Oxyhemoglobin Sodium Potassium Chloride Carbon Dioxide BUN Creatinine Glucose POC Glucose 217 H 239 H 254 H Lactic Acid Calcium AST Alkaline Phosphatase CK-MB (CK-2) CK-MB (CK-2) Rel Index Albumin TSH Urine WBC (Auto) Salicylates 02/28/17 02/28/17 03/01/17 05:38 19:44 00:08 WBC RBC Hgb Hct MCV MCH RDW Plt Count Lymph % (Auto) Grant % (Auto) Eos % (Auto) Seg Neutrophils % Seg Neuts % (Manual) Lymphocytes % (Manual) Seg Neutrophils # Seg Neutrophils # Man Lymphocytes # (Manual) APTT POC ABG pH ABG pH POC ABG pCO2 POC ABG pO2 ABG pO2 ABG HCO3 ABG Base Excess ABG Hemoglobin VBG pH Oxyhemoglobin Sodium Potassium Chloride Carbon Dioxide BUN Creatinine Glucose POC Glucose 325 H 116 H 202 H Lactic Acid Calcium AST Alkaline Phosphatase CK-MB (CK-2) CK-MB (CK-2) Rel Index Albumin TSH Urine WBC (Auto) Salicylates 03/01/17 05:31 WBC RBC Hgb Hct MCV MCH RDW Plt Count Lymph % (Auto) Grant % (Auto) Eos % (Auto) Seg Neutrophils % Seg Neuts % (Manual) Lymphocytes % (Manual) Seg Neutrophils # Seg Neutrophils # Man Lymphocytes # (Manual) APTT POC ABG pH ABG pH POC ABG pCO2 POC ABG pO2 ABG pO2 ABG HCO3 ABG Base Excess ABG Hemoglobin VBG pH Oxyhemoglobin Sodium Potassium Chloride Carbon Dioxide BUN Creatinine Glucose POC Glucose 183 H Lactic Acid Calcium AST Alkaline Phosphatase CK-MB (CK-2) CK-MB (CK-2) Rel Index Albumin TSH Urine WBC (Auto) Salicylates
[2017-03-01] MEDS ORDERED: NACL 0.9% IR ONE (14:54)
[2017-03-02] MEDS: HumuLIN R SUB-Q SCH ×4 (05:49→18:03)
[2017-03-02] MEDS: SYNTHROID PO SCH (06:03)
[2017-03-02] MEDS: PEPCID PO SCH ×2 (10:33→22:15)
[2017-03-02] MEDS: LEVEMIR (NF) SUB-Q SCH (10:33)
[2017-03-02] MEDS: NORMODYNE PO SCH ×2 (10:33→22:39)
[2017-03-02] MEDS: HEPARIN SUB-Q SCH ×2 (10:33→22:15)
--- NOTE | 2017-03-02 10:59 | Progress Note ---
Assessment and Plan 51 y/o male found down, concern for sepsis and now encephalopathic requiring mechanical ventilation. I stopped the Merrem. Ethically, I do not feel this is the right thing to do for this patient. This is the same ESBL that was present in the urine from . Clinically this patient has not improved and nor has he worsened. Abx would potentially cause more harm than good in this patient in a persistent vegatative state. Please call me if there are any questions. 1. continue supportive care 2. 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 I am aware that he is an AND but trach will not fix this problem and is not in my professional opinion the right thing to do for this patient. Most likely he will never be weaned from the vent and will remain in a persistent vegatative state. CCT 31 minutes. Subjective Date of service: 03/02/17 Principal diagnosis: Acute respiratory failure,encephalopathy Interval history: No acute events overnight. Still unresponsive. Still no family Objective Vital Signs - 12hr 03/01/17 03/02/17 03/02/17 23:32 00:00 02:00 Temperature Pulse Rate 60 57 L 60 Pulse Rate [ From Monitor] Respiratory 12 12 Rate Blood Pressure 139/81 137/77 148/85 O2 Sat by Pulse 100 100 100 Oximetry 03/02/17 03/02/17 03/02/17 04:00 05:01 06:00 Temperature 97.6 F Pulse Rate 63 63 61 Pulse Rate [ 58 L From Monitor] Respiratory 12 12 Rate Blood Pressure 144/88 144/88 145/82 O2 Sat by Pulse 100 99 100 Oximetry 03/02/17 03/02/17 09:09 09:14 Temperature Pulse Rate 60 59 L Pulse Rate [ From Monitor] Respiratory 17 Rate Blood Pressure 130/77 130/77 O2 Sat by Pulse 100 100 Oximetry Constitutional: no acute distress, alert, other (orally intubated, on vent support) Eyes: non-icteric ENT: oropharynx moist Neck: supple, no JVD Effort: normal Ascultation: Bilateral: clear, diminished breath sounds Cardiovascular: regular rate and rhythm Gastrointestinal: normoactive bowel sounds, soft, non-tender, non-distended Integumentary: normal Extremities: no cyanosis, no edema, pink and warm Neurologic: other (awake spontaneously, not not following any commands. Fixed stare.) Psychiatric: other (unable to obtain) CBC and BMP: 02/09/17 07:24 02/09/17 07:24 ABG, PT/INR, D-dimer: ABG POC ABG pH 7.442 (7.35-7.45) 01/31/17 18:55 ABG pH 7.420 pH Units (7.350-7.450) 01/17/17 04:35 POC ABG pCO2 32.8 (35-45) L 01/31/17 18:55 ABG pCO2 34.5 mm Hg 01/17/17 04:35 POC ABG pO2 82 (80-105) 01/31/17 18:55 ABG pO2 160.3 mm Hg (80.0-90.0) H 01/17/17 04:35 POC ABG HCO3 22.4 01/31/17 18:55 POC ABG Total CO2 23 01/31/17 18:55 POC ABG O2 Sat 97 01/31/17 18:55 ABG O2 Saturation 99.0 % (95.0-99.0) 01/17/17 04:35 PT/INR, D-dimer PT 14.1 Sec. (12.2-14.9) 01/17/17 04:10 INR 1.04 (0.87-1.13) 01/17/17 04:10 Abnormal lab findings: Abnormal Labs 01/09/17 01/09/17 01/09/17 10:16 10:16 10:16 WBC RBC Hgb 9.7 L Hct 28.4 L MCV 76 L MCH 26 L RDW 17.2 H Plt Count 448 H Lymph % (Auto) [place] % (Auto) Eos % (Auto) Seg Neutrophils % 79.5 H Seg Neuts % (Manual) Lymphocytes % (Manual) Seg Neutrophils # Seg Neutrophils # Man Lymphocytes # (Manual) APTT 39.6 H POC ABG pH ABG pH POC ABG pCO2 POC ABG pO2 ABG pO2 ABG HCO3 ABG Base Excess ABG Hemoglobin VBG pH Oxyhemoglobin Sodium 132 L Potassium Chloride 96.7 L Carbon Dioxide 21 L BUN 34 H Creatinine Glucose POC Glucose Lactic Acid Calcium 8.3 L AST Alkaline Phosphatase 151 H CK-MB (CK-2) 7.1 H CK-MB (CK-2) Rel Index 5.2 H Albumin 3.3 L TSH Urine WBC (Auto) Salicylates 01/09/17 01/09/17 01/09/17 10:16 10:16 10:16 WBC RBC Hgb Hct MCV MCH RDW Plt Count Lymph % (Auto) [place] % (Auto) Eos % (Auto) Seg Neutrophils % Seg Neuts % (Manual) Lymphocytes % (Manual) Seg Neutrophils # Seg Neutrophils # Man Lymphocytes # (Manual) APTT POC ABG pH ABG pH POC ABG pCO2 POC ABG pO2 ABG pO2 ABG HCO3 ABG Base Excess ABG Hemoglobin VBG pH 7.284 L Oxyhemoglobin Sodium Potassium Chloride Carbon Dioxide BUN Creatinine Glucose POC Glucose Lactic Acid Calcium AST Alkaline Phosphatase CK-MB (CK-2) CK-MB (CK-2) Rel Index Albumin TSH 52.800 H Urine WBC (Auto) Salicylates < 0.3 L 01/09/17 01/09/17 01/09/17 10:23 11:14 12:49 WBC RBC Hgb Hct MCV MCH RDW Plt Count Lymph % (Auto) [place] % (Auto) Eos % (Auto) Seg Neutrophils % Seg Neuts % (Manual) Lymphocytes % (Manual) Seg Neutrophils # Seg Neutrophils # Man Lymphocytes # (Manual) APTT POC ABG pH ABG pH POC ABG pCO2 POC ABG pO2 643 H ABG pO2 ABG HCO3 ABG Base Excess ABG Hemoglobin VBG pH Oxyhemoglobin Sodium Potassium Chloride Carbon Dioxide BUN Creatinine Glucose POC Glucose < 40 L Lactic Acid Calcium AST Alkaline Phosphatase CK-MB (CK-2) CK-MB (CK-2) Rel Index Albumin TSH Urine WBC (Auto) 61.0 H Salicylates 01/09/17 01/09/17 01/09/17 13:13 14:21 15:09 WBC RBC Hgb Hct MCV MCH RDW Plt Count Lymph % (Auto) [place] % (Auto) Eos % (Auto) Seg Neutrophils % Seg Neuts % (Manual) Lymphocytes % (Manual) Seg Neutrophils # Seg Neutrophils # Man Lymphocytes # (Manual) APTT POC ABG pH ABG pH POC ABG pCO2 POC ABG pO2 ABG pO2 ABG HCO3 ABG Base Excess ABG Hemoglobin VBG pH Oxyhemoglobin Sodium Potassium Chloride Carbon Dioxide BUN Creatinine Glucose POC Glucose 128 H 65 L 120 H Lactic Acid Calcium AST Alkaline Phosphatase CK-MB (CK-2) CK-MB (CK-2) Rel Index Albumin TSH Urine WBC (Auto) Salicylates 01/09/17 01/09/17 01/10/17 16:28 17:14 04:30 WBC 24.1 H RBC 3.38 L Hgb 8.5 L Hct 26.0 L MCV 77 L MCH 25 L RDW 17.9 H Plt Count 474 H Lymph % (Auto) [place] % (Auto) Eos % (Auto) Seg Neutrophils % Seg Neuts % (Manual) 88.0 H Lymphocytes % (Manual) 4.0 L Seg Neutrophils # Seg Neutrophils # Man 21.2 H Lymphocytes # (Manual) 1.0 L APTT POC ABG pH ABG pH POC ABG pCO2 POC ABG pO2 ABG pO2 ABG HCO3 ABG Base Excess ABG Hemoglobin VBG pH Oxyhemoglobin Sodium Potassium Chloride Carbon Dioxide BUN Creatinine Glucose POC Glucose 44 L 112 H Lactic Acid Calcium AST Alkaline Phosphatase CK-MB (CK-2) CK-MB (CK-2) Rel Index Albumin TSH Urine WBC (Auto) Salicylates 01/10/17 01/10/17 01/10/17 04:30 05:41 05:45 WBC RBC Hgb Hct MCV MCH RDW Plt Count Lymph % (Auto) [place] % (Auto) Eos % (Auto) Seg Neutrophils % Seg Neuts % (Manual) Lymphocytes % (Manual) Seg Neutrophils # Seg Neutrophils # Man Lymphocytes # (Manual) APTT POC ABG pH ABG pH POC ABG pCO2 26.6 L POC ABG pO2 207 H ABG pO2 ABG HCO3 ABG Base Excess ABG Hemoglobin VBG pH Oxyhemoglobin Sodium Potassium Chloride Carbon Dioxide 17 L BUN 27 H Creatinine Glucose POC Glucose 68 L Lactic Acid Calcium 7.5 L AST Alkaline Phosphatase CK-MB (CK-2) CK-MB (CK-2) Rel Index Albumin TSH Urine WBC (Auto) Salicylates 01/10/17 01/10/17 01/10/17 07:47 10:50 13:41 WBC RBC Hgb Hct MCV MCH RDW Plt Count Lymph % (Auto) [place] % (Auto) Eos % (Auto) Seg Neutrophils % Seg Neuts % (Manual) Lymphocytes % (Manual) Seg Neutrophils # Seg Neutrophils # Man Lymphocytes # (Manual) APTT POC ABG pH ABG pH POC ABG pCO2 POC ABG pO2 ABG pO2 ABG HCO3 ABG Base Excess ABG Hemoglobin VBG pH Oxyhemoglobin Sodium Potassium Chloride Carbon Dioxide BUN Creatinine Glucose POC Glucose 148 H 165 H 114 H Lactic Acid Calcium AST Alkaline Phosphatase CK-MB (CK-2) CK-MB (CK-2) Rel Index Albumin TSH Urine WBC (Auto) Salicylates 01/10/17 01/10/17 01/10/17 20:20 21:39 23:24 WBC RBC Hgb Hct MCV MCH RDW Plt Count Lymph % (Auto) [place] % (Auto) Eos % (Auto) Seg Neutrophils % Seg Neuts % (Manual) Lymphocytes % (Manual) Seg Neutrophils # Seg Neutrophils # Man Lymphocytes # (Manual) APTT POC ABG pH ABG pH POC ABG pCO2 POC ABG pO2 ABG pO2 ABG HCO3 ABG Base Excess ABG Hemoglobin VBG pH Oxyhemoglobin Sodium Potassium Chloride Carbon Dioxide BUN Creatinine Glucose POC Glucose 150 H 175 H 155 H Lactic Acid Calcium AST Alkaline Phosphatase CK-MB (CK-2) CK-MB (CK-2) Rel Index Albumin TSH Urine WBC (Auto) Salicylates 01/11/17 01/11/17 01/11/17 00:19 04:06 05:20 WBC 15.2 H RBC 3.40 L Hgb 8.9 L Hct 26.3 L MCV 78 L MCH 26 L RDW 18.6 H Plt Count 462 H Lymph % (Auto) 13.2 L [place] % (Auto) Eos % (Auto) Seg Neutrophils % 80.8 H Seg Neuts % (Manual) Lymphocytes % (Manual) Seg Neutrophils # 12.3 H Seg Neutrophils # Man Lymphocytes # (Manual) APTT POC ABG pH 7.463 H ABG pH POC ABG pCO2 26.2 L POC ABG pO2 185 H ABG pO2 ABG HCO3 ABG Base Excess ABG Hemoglobin VBG pH Oxyhemoglobin Sodium Potassium Chloride Carbon Dioxide BUN Creatinine Glucose POC Glucose 163 H Lactic Acid Calcium AST Alkaline Phosphatase CK-MB (CK-2) CK-MB (CK-2) Rel Index Albumin TSH Urine WBC (Auto) Salicylates 01/11/17 01/11/17 01/11/17 05:20 06:21 07:57 WBC RBC Hgb Hct MCV MCH RDW Plt Count Lymph % (Auto) [place] % (Auto) Eos % (Auto) Seg Neutrophils % Seg Neuts % (Manual) Lymphocytes % (Manual) Seg Neutrophils # Seg Neutrophils # Man Lymphocytes # (Manual) APTT POC ABG pH ABG pH POC ABG pCO2 POC ABG pO2 ABG pO2 ABG HCO3 ABG Base Excess ABG Hemoglobin VBG pH Oxyhemoglobin Sodium Potassium 3.4 L Chloride 111.5 H Carbon Dioxide 17 L BUN Creatinine Glucose 147 H POC Glucose 139 H 188 H Lactic Acid Calcium 8.0 L AST Alkaline Phosphatase CK-MB (CK-2) CK-MB (CK-2) Rel Index Albumin TSH Urine WBC (Auto) Salicylates 01/11/17 01/11/17 01/11/17 11:46 16:50 23:15 WBC RBC Hgb Hct MCV MCH RDW Plt Count Lymph % (Auto) [place] % (Auto) Eos % (Auto) Seg Neutrophils % Seg Neuts % (Manual) Lymphocytes % (Manual) Seg Neutrophils # Seg Neutrophils # Man Lymphocytes # (Manual) APTT POC ABG pH ABG pH POC ABG pCO2 POC ABG pO2 ABG pO2 ABG HCO3 ABG Base Excess ABG Hemoglobin VBG pH Oxyhemoglobin Sodium Potassium Chloride Carbon Dioxide BUN Creatinine Glucose POC Glucose 199 H 235 H 155 H Lactic Acid Calcium AST Alkaline Phosphatase CK-MB (CK-2) CK-MB (CK-2) Rel Index Albumin TSH Urine WBC (Auto) Salicylates 01/12/17 01/12/17 01/12/17 05:02 06:56 14:50 WBC RBC Hgb Hct MCV MCH RDW Plt Count Lymph % (Auto) [place] % (Auto) Eos % (Auto) Seg Neutrophils % Seg Neuts % (Manual) Lymphocytes % (Manual) Seg Neutrophils # Seg Neutrophils # Man Lymphocytes # (Manual) APTT POC ABG pH ABG pH POC ABG pCO2 28.0 L POC ABG pO2 178 H ABG pO2 ABG HCO3 ABG Base Excess ABG Hemoglobin VBG pH Oxyhemoglobin Sodium Potassium Chloride Carbon Dioxide BUN Creatinine Glucose POC Glucose 119 H 164 H Lactic Acid Calcium AST Alkaline Phosphatase CK-MB (CK-2) CK-MB (CK-2) Rel Index Albumin TSH Urine WBC (Auto) Salicylates 01/13/17 01/13/17 01/13/17 03:37 03:37 04:26 WBC RBC 3.61 L Hgb 9.3 L Hct 28.0 L MCV 78 L MCH 26 L RDW 18.2 H Plt Count Lymph % (Auto) [place] % (Auto) Eos % (Auto) Seg Neutrophils % Seg Neuts % (Manual) Lymphocytes % (Manual) Seg Neutrophils # Seg Neutrophils # Man Lymphocytes # (Manual) APTT POC ABG pH 7.485 H ABG pH POC ABG pCO2 25.4 L POC ABG pO2 73 L ABG pO2 ABG HCO3 ABG Base Excess ABG Hemoglobin VBG pH Oxyhemoglobin Sodium Potassium Chloride 112.4 H Carbon Dioxide 19 L BUN Creatinine Glucose 118 H POC Glucose Lactic Acid Calcium 8.0 L AST Alkaline Phosphatase CK-MB (CK-2) CK-MB (CK-2) Rel Index Albumin TSH Urine WBC (Auto) Salicylates 01/13/17 01/13/17 01/13/17 06:15 11:50 17:31 WBC RBC Hgb Hct MCV MCH RDW Plt Count Lymph % (Auto) [place] % (Auto) Eos % (Auto) Seg Neutrophils % Seg Neuts % (Manual) Lymphocytes % (Manual) Seg Neutrophils # Seg Neutrophils # Man Lymphocytes # (Manual) APTT POC ABG pH ABG pH POC ABG pCO2 POC ABG pO2 ABG pO2 ABG HCO3 ABG Base Excess ABG Hemoglobin VBG pH Oxyhemoglobin Sodium Potassium Chloride Carbon Dioxide BUN Creatinine Glucose POC Glucose 116 H 171 H 203 H Lactic Acid Calcium AST Alkaline Phosphatase CK-MB (CK-2) CK-MB (CK-2) Rel Index Albumin TSH Urine WBC (Auto) Salicylates 01/14/17 01/14/17 01/14/17 00:02 04:50 04:50 WBC RBC 3.32 L Hgb 8.5 L Hct 26.1 L MCV 79 L MCH 26 L RDW 18.2 H Plt Count Lymph % (Auto) [place] % (Auto) 9.0 H Eos % (Auto) Seg Neutrophils % Seg Neuts % (Manual) Lymphocytes % (Manual) Seg Neutrophils # Seg Neutrophils # Man Lymphocytes # (Manual) APTT POC ABG pH ABG pH POC ABG pCO2 POC ABG pO2 ABG pO2 ABG HCO3 ABG Base Excess ABG Hemoglobin VBG pH Oxyhemoglobin Sodium Potassium Chloride 112.5 H Carbon Dioxide BUN Creatinine Glucose 149 H POC Glucose 157 H Lactic Acid Calcium 8.1 L AST Alkaline Phosphatase CK-MB (CK-2) CK-MB (CK-2) Rel Index Albumin TSH Urine WBC (Auto) Salicylates 01/14/17 01/14/17 01/14/17 05:10 11:27 14:07 WBC RBC Hgb Hct MCV MCH RDW Plt Count Lymph % (Auto) [place] % (Auto) Eos % (Auto) Seg Neutrophils % Seg Neuts % (Manual) Lymphocytes % (Manual) Seg Neutrophils # Seg Neutrophils # Man Lymphocytes # (Manual) APTT POC ABG pH ABG pH POC ABG pCO2 POC ABG pO2 ABG pO2 ABG HCO3 ABG Base Excess ABG Hemoglobin VBG pH Oxyhemoglobin Sodium Potassium Chloride Carbon Dioxide BUN Creatinine Glucose POC Glucose 176 H 147 H Lactic Acid Calcium AST Alkaline Phosphatase CK-MB (CK-2) CK-MB (CK-2) Rel Index Albumin TSH Urine WBC (Auto) 53.0 H Salicylates 01/14/17 01/15/17 01/15/17 16:52 00:04 05:26 WBC RBC Hgb Hct MCV MCH RDW Plt Count Lymph % (Auto) [place] % (Auto) Eos % (Auto) Seg Neutrophils % Seg Neuts % (Manual) Lymphocytes % (Manual) Seg Neutrophils # Seg Neutrophils # Man Lymphocytes # (Manual) APTT POC ABG pH ABG pH POC ABG pCO2 POC ABG pO2 ABG pO2 ABG HCO3 ABG Base Excess ABG Hemoglobin VBG pH Oxyhemoglobin Sodium Potassium Chloride Carbon Dioxide BUN Creatinine Glucose POC Glucose 131 H 193 H 215 H Lactic Acid Calcium AST Alkaline Phosphatase CK-MB (CK-2) CK-MB (CK-2) Rel Index Albumin TSH Urine WBC (Auto) Salicylates 01/15/17 01/15/17 01/15/17 11:49 17:47 21:33 WBC RBC Hgb Hct MCV MCH RDW Plt Count Lymph % (Auto) [place] % (Auto) Eos % (Auto) Seg Neutrophils % Seg Neuts % (Manual) Lymphocytes % (Manual) Seg Neutrophils # Seg Neutrophils # Man Lymphocytes # (Manual) APTT POC ABG pH ABG pH POC ABG pCO2 POC ABG pO2 ABG pO2 ABG HCO3 ABG Base Excess ABG Hemoglobin VBG pH Oxyhemoglobin Sodium Potassium Chloride Carbon Dioxide BUN Creatinine Glucose POC Glucose 121 H 211 H 275 H Lactic Acid Calcium AST Alkaline Phosphatase CK-MB (CK-2) CK-MB (CK-2) Rel Index Albumin TSH Urine WBC (Auto) Salicylates 01/16/17 01/16/17 01/16/17 04:30 05:28 13:45 WBC RBC Hgb Hct MCV MCH RDW Plt Count Lymph % (Auto) [place] % (Auto) Eos % (Auto) Seg Neutrophils % Seg Neuts % (Manual) Lymphocytes % (Manual) Seg Neutrophils # Seg Neutrophils # Man Lymphocytes # (Manual) APTT POC ABG pH ABG pH 7.457 H POC ABG pCO2 POC ABG pO2 ABG pO2 55.1 L ABG HCO3 19.4 L ABG Base Excess -4.0 L ABG Hemoglobin 6.8 L VBG pH Oxyhemoglobin 94.9 L Sodium Potassium Chloride Carbon Dioxide BUN Creatinine Glucose POC Glucose 271 H 236 H Lactic Acid Calcium AST Alkaline Phosphatase CK-MB (CK-2) CK-MB (CK-2) Rel Index Albumin TSH Urine WBC (Auto) Salicylates 01/16/17 01/17/17 01/17/17 21:39 04:10 04:10 WBC 4.4 L RBC 2.98 L Hgb 7.7 L Hct 23.3 L MCV 78 L MCH 26 L RDW 18.1 H Plt Count Lymph % (Auto) [place] % (Auto) Eos % (Auto) Seg Neutrophils % Seg Neuts % (Manual) Lymphocytes % (Manual) Seg Neutrophils # Seg Neutrophils # Man Lymphocytes # (Manual) APTT POC ABG pH ABG pH POC ABG pCO2 POC ABG pO2 ABG pO2 ABG HCO3 ABG Base Excess ABG Hemoglobin VBG pH Oxyhemoglobin Sodium Potassium 3.3 L Chloride 108.7 H Carbon Dioxide 20 L BUN 8 L Creatinine Glucose 202 H POC Glucose 258 H Lactic Acid Calcium 7.6 L AST Alkaline Phosphatase CK-MB (CK-2) CK-MB (CK-2) Rel Index Albumin TSH Urine WBC (Auto) Salicylates 01/17/17 01/17/17 01/17/17 04:35 12:23 16:01 WBC RBC Hgb Hct MCV MCH RDW Plt Count Lymph % (Auto) [place] % (Auto) Eos % (Auto) Seg Neutrophils % Seg Neuts % (Manual) Lymphocytes % (Manual) Seg Neutrophils # Seg Neutrophils # Man Lymphocytes # (Manual) APTT POC ABG pH ABG pH POC ABG pCO2 POC ABG pO2 ABG pO2 160.3 H ABG HCO3 ABG Base Excess -2.3 L ABG Hemoglobin 7.9 L VBG pH Oxyhemoglobin Sodium Potassium Chloride Carbon Dioxide BUN Creatinine Glucose POC Glucose 321 H 239 H Lactic Acid Calcium AST Alkaline Phosphatase CK-MB (CK-2) CK-MB (CK-2) Rel Index Albumin TSH Urine WBC (Auto) Salicylates 01/18/17 01/18/17 01/18/17 05:07 12:09 17:54 WBC RBC Hgb Hct MCV MCH RDW Plt Count Lymph % (Auto) [place] % (Auto) Eos % (Auto) Seg Neutrophils % Seg Neuts % (Manual) Lymphocytes % (Manual) Seg Neutrophils # Seg Neutrophils # Man Lymphocytes # (Manual) APTT POC ABG pH ABG pH POC ABG pCO2 POC ABG pO2 ABG pO2 ABG HCO3 ABG Base Excess ABG Hemoglobin VBG pH Oxyhemoglobin Sodium Potassium Chloride Carbon Dioxide BUN Creatinine Glucose POC Glucose 155 H 203 H 132 H Lactic Acid Calcium AST Alkaline Phosphatase CK-MB (CK-2) CK-MB (CK-2) Rel Index Albumin TSH Urine WBC (Auto) Salicylates 01/18/17 01/19/17 01/19/17 23:43 04:28 12:11 WBC RBC Hgb Hct MCV MCH RDW Plt Count Lymph % (Auto) [place] % (Auto) Eos % (Auto) Seg Neutrophils % Seg Neuts % (Manual) Lymphocytes % (Manual) Seg Neutrophils # Seg Neutrophils # Man Lymphocytes # (Manual) APTT POC ABG pH ABG pH POC ABG pCO2 POC ABG pO2 ABG pO2 ABG HCO3 ABG Base Excess ABG Hemoglobin VBG pH Oxyhemoglobin Sodium Potassium Chloride Carbon Dioxide BUN Creatinine Glucose POC Glucose 125 H 182 H 153 H Lactic Acid Calcium AST Alkaline Phosphatase CK-MB (CK-2) CK-MB (CK-2) Rel Index Albumin TSH Urine WBC (Auto) Salicylates 01/19/17 01/20/17 01/20/17 17:23 00:12 05:44 WBC RBC Hgb Hct MCV MCH RDW Plt Count Lymph % (Auto) [place] % (Auto) Eos % (Auto) Seg Neutrophils % Seg Neuts % (Manual) Lymphocytes % (Manual) Seg Neutrophils # Seg Neutrophils # Man Lymphocytes # (Manual) APTT POC ABG pH ABG pH POC ABG pCO2 POC ABG pO2 ABG pO2 ABG HCO3 ABG Base Excess ABG Hemoglobin VBG pH Oxyhemoglobin Sodium Potassium Chloride Carbon Dioxide BUN Creatinine Glucose POC Glucose 66 L 139 H 176 H Lactic Acid Calcium AST Alkaline Phosphatase CK-MB (CK-2) CK-MB (CK-2) Rel Index Albumin TSH Urine WBC (Auto) Salicylates 01/20/17 01/20/17 01/20/17 11:48 17:42 23:43 WBC RBC Hgb Hct MCV MCH RDW Plt Count Lymph % (Auto) [place] % (Auto) Eos % (Auto) Seg Neutrophils % Seg Neuts % (Manual) Lymphocytes % (Manual) Seg Neutrophils # Seg Neutrophils # Man Lymphocytes # (Manual) APTT POC ABG pH ABG pH POC ABG pCO2 POC ABG pO2 ABG pO2 ABG HCO3 ABG Base Excess ABG Hemoglobin VBG pH Oxyhemoglobin Sodium Potassium Chloride Carbon Dioxide BUN Creatinine Glucose POC Glucose 218 H 132 H 178 H Lactic Acid Calcium AST Alkaline Phosphatase CK-MB (CK-2) CK-MB (CK-2) Rel Index Albumin TSH Urine WBC (Auto) Salicylates 01/21/17 01/21/17 01/21/17 05:34 11:17 23:37 WBC RBC Hgb Hct MCV MCH RDW Plt Count Lymph % (Auto) [place] % (Auto) Eos % (Auto) Seg Neutrophils % Seg Neuts % (Manual) Lymphocytes % (Manual) Seg Neutrophils # Seg Neutrophils # Man Lymphocytes # (Manual) APTT POC ABG pH ABG pH POC ABG pCO2 POC ABG pO2 ABG pO2 ABG HCO3 ABG Base Excess ABG Hemoglobin VBG pH Oxyhemoglobin Sodium Potassium Chloride Carbon Dioxide BUN Creatinine Glucose POC Glucose 106 H 213 H 140 H Lactic Acid Calcium AST Alkaline Phosphatase CK-MB (CK-2) CK-MB (CK-2) Rel Index Albumin TSH Urine WBC (Auto) Salicylates 01/22/17 01/22/17 01/22/17 04:00 04:00 04:58 WBC RBC 3.26 L Hgb 8.3 L Hct 25.5 L MCV 78 L MCH 25 L RDW 17.9 H Plt Count Lymph % (Auto) [place] % (Auto) 7.9 H Eos % (Auto) 6.2 H Seg Neutrophils % Seg Neuts % (Manual) Lymphocytes % (Manual) Seg Neutrophils # Seg Neutrophils # Man Lymphocytes # (Manual) APTT POC ABG pH ABG pH POC ABG pCO2 POC ABG pO2 ABG pO2 ABG HCO3 ABG Base Excess ABG Hemoglobin VBG pH Oxyhemoglobin Sodium Potassium Chloride 95.5 L Carbon Dioxide 31 H D BUN Creatinine Glucose 134 H POC Glucose 146 H Lactic Acid Calcium AST 44 H Alkaline Phosphatase 379 H CK-MB (CK-2) CK-MB (CK-2) Rel Index Albumin 2.7 L TSH Urine WBC (Auto) Salicylates 01/22/17 01/22/17 01/22/17 12:12 18:12 23:39 WBC RBC Hgb Hct MCV MCH RDW Plt Count Lymph % (Auto) [place] % (Auto) Eos % (Auto) Seg Neutrophils % Seg Neuts % (Manual) Lymphocytes % (Manual) Seg Neutrophils # Seg Neutrophils # Man Lymphocytes # (Manual) APTT POC ABG pH ABG pH POC ABG pCO2 POC ABG pO2 ABG pO2 ABG HCO3 ABG Base Excess ABG Hemoglobin VBG pH Oxyhemoglobin Sodium Potassium Chloride Carbon Dioxide BUN Creatinine Glucose POC Glucose 255 H 182 H 134 H Lactic Acid Calcium AST Alkaline Phosphatase CK-MB (CK-2) CK-MB (CK-2) Rel Index Albumin TSH Urine WBC (Auto) Salicylates 01/23/17 01/23/17 01/23/17 04:43 12:12 17:36 WBC RBC Hgb Hct MCV MCH RDW Plt Count Lymph % (Auto) [place] % (Auto) Eos % (Auto) Seg Neutrophils % Seg Neuts % (Manual) Lymphocytes % (Manual) Seg Neutrophils # Seg Neutrophils # Man Lymphocytes # (Manual) APTT POC ABG pH ABG pH POC ABG pCO2 POC ABG pO2 ABG pO2 ABG HCO3 ABG Base Excess ABG Hemoglobin VBG pH Oxyhemoglobin Sodium Potassium Chloride Carbon Dioxide BUN Creatinine Glucose POC Glucose 218 H 128 H 156 H Lactic Acid Calcium AST Alkaline Phosphatase CK-MB (CK-2) CK-MB (CK-2) Rel Index Albumin TSH Urine WBC (Auto) Salicylates 01/24/17 01/24/17 01/24/17 00:08 05:16 11:40 WBC RBC Hgb Hct MCV MCH RDW Plt Count Lymph % (Auto) [place] % (Auto) Eos % (Auto) Seg Neutrophils % Seg Neuts % (Manual) Lymphocytes % (Manual) Seg Neutrophils # Seg Neutrophils # Man Lymphocytes # (Manual) APTT POC ABG pH ABG pH POC ABG pCO2 POC ABG pO2 ABG pO2 ABG HCO3 ABG Base Excess ABG Hemoglobin VBG pH Oxyhemoglobin Sodium Potassium Chloride Carbon Dioxide BUN Creatinine Glucose POC Glucose 129 H 169 H 187 H Lactic Acid Calcium AST Alkaline Phosphatase CK-MB (CK-2) CK-MB (CK-2) Rel Index Albumin TSH Urine WBC (Auto) Salicylates 01/24/17 01/24/17 01/25/17 17:43 23:23 04:56 WBC RBC Hgb Hct MCV MCH RDW Plt Count Lymph % (Auto) [place] % (Auto) Eos % (Auto) Seg Neutrophils % Seg Neuts % (Manual) Lymphocytes % (Manual) Seg Neutrophils # Seg Neutrophils # Man Lymphocytes # (Manual) APTT POC ABG pH ABG pH POC ABG pCO2 POC ABG pO2 ABG pO2 ABG HCO3 ABG Base Excess ABG Hemoglobin VBG pH Oxyhemoglobin Sodium Potassium Chloride Carbon Dioxide BUN Creatinine Glucose POC Glucose 215 H 222 H 210 H Lactic Acid Calcium AST Alkaline Phosphatase CK-MB (CK-2) CK-MB (CK-2) Rel Index Albumin TSH Urine WBC (Auto) Salicylates 01/25/17 01/25/17 01/26/17 11:52 17:37 00:02 WBC RBC Hgb Hct MCV MCH RDW Plt Count Lymph % (Auto) [place] % (Auto) Eos % (Auto) Seg Neutrophils % Seg Neuts % (Manual) Lymphocytes % (Manual) Seg Neutrophils # Seg Neutrophils # Man Lymphocytes # (Manual) APTT POC ABG pH ABG pH POC ABG pCO2 POC ABG pO2 ABG pO2 ABG HCO3 ABG Base Excess ABG Hemoglobin VBG pH Oxyhemoglobin Sodium Potassium Chloride Carbon Dioxide BUN Creatinine Glucose POC Glucose 284 H 218 H 192 H Lactic Acid Calcium AST Alkaline Phosphatase CK-MB (CK-2) CK-MB (CK-2) Rel Index Albumin TSH Urine WBC (Auto) Salicylates 01/26/17 01/26/17 01/26/17 05:33 12:17 17:50 WBC RBC Hgb Hct MCV MCH RDW Plt Count Lymph % (Auto) [place] % (Auto) Eos % (Auto) Seg Neutrophils % Seg Neuts % (Manual) Lymphocytes % (Manual) Seg Neutrophils # Seg Neutrophils # Man Lymphocytes # (Manual) APTT POC ABG pH ABG pH POC ABG pCO2 POC ABG pO2 ABG pO2 ABG HCO3 ABG Base Excess ABG Hemoglobin VBG pH Oxyhemoglobin Sodium Potassium Chloride Carbon Dioxide BUN Creatinine Glucose POC Glucose 199 H 227 H 229 H Lactic Acid Calcium AST Alkaline Phosphatase CK-MB (CK-2) CK-MB (CK-2) Rel Index Albumin TSH Urine WBC (Auto) Salicylates 01/26/17 01/27/17 01/27/17 23:57 05:31 11:42 WBC RBC Hgb Hct MCV MCH RDW Plt Count Lymph % (Auto) [place] % (Auto) Eos % (Auto) Seg Neutrophils % Seg Neuts % (Manual) Lymphocytes % (Manual) Seg Neutrophils # Seg Neutrophils # Man Lymphocytes # (Manual) APTT POC ABG pH ABG pH POC ABG pCO2 POC ABG pO2 ABG pO2 ABG HCO3 ABG Base Excess ABG Hemoglobin VBG pH Oxyhemoglobin Sodium Potassium Chloride Carbon Dioxide BUN Creatinine Glucose POC Glucose 186 H 285 H 260 H Lactic Acid Calcium AST Alkaline Phosphatase CK-MB (CK-2) CK-MB (CK-2) Rel Index Albumin TSH Urine WBC (Auto) Salicylates 01/27/17 01/27/17 01/27/17 17:47 23:58 Unknown WBC 12.1 H RBC 3.28 L Hgb 8.5 L Hct 25.5 L MCV 78 L MCH 26 L RDW 16.8 H Plt Count 601 H Lymph % (Auto) [place] % (Auto) Eos % (Auto) Seg Neutrophils % Seg Neuts % (Manual) Lymphocytes % (Manual) Seg Neutrophils # Seg Neutrophils # Man Lymphocytes # (Manual) APTT POC ABG pH ABG pH POC ABG pCO2 POC ABG pO2 ABG pO2 ABG HCO3 ABG Base Excess ABG Hemoglobin VBG pH Oxyhemoglobin Sodium Potassium Chloride Carbon Dioxide BUN Creatinine Glucose POC Glucose 329 H 225 H Lactic Acid Calcium AST Alkaline Phosphatase CK-MB (CK-2) CK-MB (CK-2) Rel Index Albumin TSH Urine WBC (Auto) Salicylates 01/27/17 01/28/17 01/28/17 Unknown 03:44 03:44 WBC RBC 3.14 L Hgb 8.2 L Hct 24.1 L MCV 77 L MCH 26 L RDW 16.9 H Plt Count 567 H Lymph % (Auto) [place] % (Auto) Eos % (Auto) Seg Neutrophils % Seg Neuts % (Manual) Lymphocytes % (Manual) Seg Neutrophils # Seg Neutrophils # Man Lymphocytes # (Manual) APTT POC ABG pH ABG pH POC ABG pCO2 POC ABG pO2 ABG pO2 ABG HCO3 ABG Base Excess ABG Hemoglobin VBG pH Oxyhemoglobin Sodium 128 L Potassium 5.4 H Chloride 87.5 L Carbon Dioxide BUN 44 H 42 H Creatinine Glucose 250 H 128 H POC Glucose Lactic Acid Calcium AST Alkaline Phosphatase CK-MB (CK-2) CK-MB (CK-2) Rel Index Albumin TSH Urine WBC (Auto) Salicylates 01/28/17 01/28/17 01/28/17 11:43 16:47 17:52 WBC RBC Hgb Hct MCV MCH RDW Plt Count Lymph % (Auto) [place] % (Auto) Eos % (Auto) Seg Neutrophils % Seg Neuts % (Manual) Lymphocytes % (Manual) Seg Neutrophils # Seg Neutrophils # Man Lymphocytes # (Manual) APTT POC ABG pH ABG pH POC ABG pCO2 POC ABG pO2 ABG pO2 ABG HCO3 ABG Base Excess ABG Hemoglobin VBG pH Oxyhemoglobin Sodium Potassium Chloride Carbon Dioxide BUN Creatinine Glucose POC Glucose 351 H 249 H Lactic Acid Calcium AST Alkaline Phosphatase CK-MB (CK-2) CK-MB (CK-2) Rel Index Albumin TSH Urine WBC (Auto) > 182.0 H Salicylates 01/29/17 01/29/17 01/29/17 05:25 05:25 09:32 WBC 13.6 H RBC 3.25 L Hgb 8.3 L Hct 25.1 L MCV 77 L MCH 26 L RDW 16.8 H Plt Count 514 H Lymph % (Auto) [place] % (Auto) Eos % (Auto) Seg Neutrophils % Seg Neuts % (Manual) Lymphocytes % (Manual) Seg Neutrophils # Seg Neutrophils # Man Lymphocytes # (Manual) APTT POC ABG pH ABG pH POC ABG pCO2 POC ABG pO2 ABG pO2 ABG HCO3 ABG Base Excess ABG Hemoglobin VBG pH Oxyhemoglobin Sodium Potassium Chloride 97.8 L Carbon Dioxide BUN 34 H Creatinine Glucose 222 H POC Glucose Lactic Acid 2.50 H* Calcium AST Alkaline Phosphatase CK-MB (CK-2) CK-MB (CK-2) Rel Index Albumin TSH Urine WBC (Auto) Salicylates 01/29/17 01/29/17 01/29/17 11:56 18:11 23:55 WBC RBC Hgb Hct MCV MCH RDW Plt Count Lymph % (Auto) [place] % (Auto) Eos % (Auto) Seg Neutrophils % Seg Neuts % (Manual) Lymphocytes % (Manual) Seg Neutrophils # Seg Neutrophils # Man Lymphocytes # (Manual) APTT POC ABG pH ABG pH POC ABG pCO2 POC ABG pO2 ABG pO2 ABG HCO3 ABG Base Excess ABG Hemoglobin VBG pH Oxyhemoglobin Sodium Potassium Chloride Carbon Dioxide BUN Creatinine Glucose POC Glucose 261 H 215 H 176 H Lactic Acid Calcium AST Alkaline Phosphatase CK-MB (CK-2) CK-MB (CK-2) Rel Index Albumin TSH Urine WBC (Auto) Salicylates 01/30/17 01/30/17 01/30/17 05:31 05:31 05:34 WBC 15.2 H RBC 3.09 L Hgb 7.9 L Hct 23.9 L MCV 77 L MCH 26 L RDW 16.9 H Plt Count 569 H Lymph % (Auto) [place] % (Auto) Eos % (Auto) Seg Neutrophils % Seg Neuts % (Manual) Lymphocytes % (Manual) Seg Neutrophils # Seg Neutrophils # Man Lymphocytes # (Manual) APTT POC ABG pH ABG pH POC ABG pCO2 POC ABG pO2 ABG pO2 ABG HCO3 ABG Base Excess ABG Hemoglobin VBG pH Oxyhemoglobin Sodium Potassium Chloride Carbon Dioxide BUN 24 H Creatinine Glucose 235 H POC Glucose 243 H Lactic Acid Calcium AST Alkaline Phosphatase CK-MB (CK-2) CK-MB (CK-2) Rel Index Albumin TSH Urine WBC (Auto) Salicylates 01/30/17 01/30/17 01/30/17 11:38 17:58 23:29 WBC RBC Hgb Hct MCV MCH RDW Plt Count Lymph % (Auto) [place] % (Auto) Eos % (Auto) Seg Neutrophils % Seg Neuts % (Manual) Lymphocytes % (Manual) Seg Neutrophils # Seg Neutrophils # Man Lymphocytes # (Manual) APTT POC ABG pH ABG pH POC ABG pCO2 POC ABG pO2 ABG pO2 ABG HCO3 ABG Base Excess ABG Hemoglobin VBG pH Oxyhemoglobin Sodium Potassium Chloride Carbon Dioxide BUN Creatinine Glucose POC Glucose 298 H 208 H 245 H Lactic Acid Calcium AST Alkaline Phosphatase CK-MB (CK-2) CK-MB (CK-2) Rel Index Albumin TSH Urine WBC (Auto) Salicylates 01/31/17 01/31/17 01/31/17 04:39 04:39 05:57 WBC 11.4 H RBC 3.22 L Hgb 8.2 L Hct 24.9 L MCV 78 L MCH 25 L RDW 17.2 H Plt Count 576 H Lymph % (Auto) [place] % (Auto) Eos % (Auto) Seg Neutrophils % Seg Neuts % (Manual) Lymphocytes % (Manual) Seg Neutrophils # Seg Neutrophils # Man Lymphocytes # (Manual) APTT POC ABG pH ABG pH POC ABG pCO2 POC ABG pO2 ABG pO2 ABG HCO3 ABG Base Excess ABG Hemoglobin VBG pH Oxyhemoglobin Sodium Potassium Chloride Carbon Dioxide BUN Creatinine 0.7 L Glucose 223 H POC Glucose 264 H Lactic Acid Calcium AST Alkaline Phosphatase CK-MB (CK-2) CK-MB (CK-2) Rel Index Albumin TSH Urine WBC (Auto) Salicylates 01/31/17 01/31/17 01/31/17 12:23 17:41 18:55 WBC RBC Hgb Hct MCV MCH RDW Plt Count Lymph % (Auto) [place] % (Auto) Eos % (Auto) Seg Neutrophils % Seg Neuts % (Manual) Lymphocytes % (Manual) Seg Neutrophils # Seg Neutrophils # Man Lymphocytes # (Manual) APTT POC ABG pH ABG pH POC ABG pCO2 32.8 L POC ABG pO2 ABG pO2 ABG HCO3 ABG Base Excess ABG Hemoglobin VBG pH Oxyhemoglobin Sodium Potassium Chloride Carbon Dioxide BUN Creatinine Glucose POC Glucose 252 H 208 H Lactic Acid Calcium AST Alkaline Phosphatase CK-MB (CK-2) CK-MB (CK-2) Rel Index Albumin TSH Urine WBC (Auto) Salicylates 01/31/17 02/01/17 02/01/17 22:59 03:38 03:38 WBC RBC 2.81 L Hgb 7.4 L Hct 22.1 L MCV 79 L MCH 27 L RDW 17.0 H Plt Count 540 H Lymph % (Auto) [place] % (Auto) Eos % (Auto) Seg Neutrophils % Seg Neuts % (Manual) Lymphocytes % (Manual) Seg Neutrophils # Seg Neutrophils # Man Lymphocytes # (Manual) APTT POC ABG pH ABG pH POC ABG pCO2 POC ABG pO2 ABG pO2 ABG HCO3 ABG Base Excess ABG Hemoglobin VBG pH Oxyhemoglobin Sodium Potassium Chloride Carbon Dioxide 21 L BUN Creatinine 0.7 L Glucose POC Glucose 40 L Lactic Acid Calcium AST Alkaline Phosphatase CK-MB (CK-2) CK-MB (CK-2) Rel Index Albumin TSH Urine WBC (Auto) Salicylates 02/01/17 02/01/17 02/01/17 05:17 12:19 16:44 WBC RBC Hgb Hct MCV MCH RDW Plt Count Lymph % (Auto) [place] % (Auto) Eos % (Auto) Seg Neutrophils % Seg Neuts % (Manual) Lymphocytes % (Manual) Seg Neutrophils # Seg Neutrophils # Man Lymphocytes # (Manual) APTT POC ABG pH ABG pH POC ABG pCO2 POC ABG pO2 ABG pO2 ABG HCO3 ABG Base Excess ABG Hemoglobin VBG pH Oxyhemoglobin Sodium Potassium Chloride Carbon Dioxide BUN Creatinine Glucose POC Glucose 140 H 213 H 172 H Lactic Acid Calcium AST Alkaline Phosphatase CK-MB (CK-2) CK-MB (CK-2) Rel Index Albumin TSH Urine WBC (Auto) Salicylates 02/01/17 02/02/17 02/02/17 23:59 05:14 11:24 WBC RBC Hgb Hct MCV MCH RDW Plt Count Lymph % (Auto) [place] % (Auto) Eos % (Auto) Seg Neutrophils % Seg Neuts % (Manual) Lymphocytes % (Manual) Seg Neutrophils # Seg Neutrophils # Man Lymphocytes # (Manual) APTT POC ABG pH ABG pH POC ABG pCO2 POC ABG pO2 ABG pO2 ABG HCO3 ABG Base Excess ABG Hemoglobin VBG pH Oxyhemoglobin Sodium Potassium Chloride Carbon Dioxide BUN Creatinine Glucose POC Glucose 181 H 194 H 209 H Lactic Acid Calcium AST Alkaline Phosphatase CK-MB (CK-2) CK-MB (CK-2) Rel Index Albumin TSH Urine WBC (Auto) Salicylates 02/02/17 02/02/17 02/02/17 11:46 11:46 17:47 WBC RBC 2.94 L Hgb 7.5 L Hct 23.0 L MCV 78 L MCH 25 L RDW 16.9 H Plt Count 520 H Lymph % (Auto) [place] % (Auto) Eos % (Auto) Seg Neutrophils % Seg Neuts % (Manual) Lymphocytes % (Manual) Seg Neutrophils # Seg Neutrophils # Man Lymphocytes # (Manual) APTT POC ABG pH ABG pH POC ABG pCO2 POC ABG pO2 ABG pO2 ABG HCO3 ABG Base Excess ABG Hemoglobin VBG pH Oxyhemoglobin Sodium Potassium Chloride Carbon Dioxide BUN Creatinine 0.6 L Glucose 189 H POC Glucose 147 H Lactic Acid Calcium 8.1 L AST Alkaline Phosphatase CK-MB (CK-2) CK-MB (CK-2) Rel Index Albumin TSH Urine WBC (Auto) Salicylates 02/02/17 02/03/17 02/03/17 23:32 05:53 11:19 WBC RBC Hgb Hct MCV MCH RDW Plt Count Lymph % (Auto) [place] % (Auto) Eos % (Auto) Seg Neutrophils % Seg Neuts % (Manual) Lymphocytes % (Manual) Seg Neutrophils # Seg Neutrophils # Man Lymphocytes # (Manual) APTT POC ABG pH ABG pH POC ABG pCO2 POC ABG pO2 ABG pO2 ABG HCO3 ABG Base Excess ABG Hemoglobin VBG pH Oxyhemoglobin Sodium Potassium Chloride Carbon Dioxide BUN Creatinine Glucose POC Glucose 176 H 224 H 228 H Lactic Acid Calcium AST Alkaline Phosphatase CK-MB (CK-2) CK-MB (CK-2) Rel Index Albumin TSH Urine WBC (Auto) Salicylates 02/03/17 02/03/17 02/04/17 16:59 23:38 05:45 WBC RBC Hgb Hct MCV MCH RDW Plt Count Lymph % (Auto) [place] % (Auto) Eos % (Auto) Seg Neutrophils % Seg Neuts % (Manual) Lymphocytes % (Manual) Seg Neutrophils # Seg Neutrophils # Man Lymphocytes # (Manual) APTT POC ABG pH ABG pH POC ABG pCO2 POC ABG pO2 ABG pO2 ABG HCO3 ABG Base Excess ABG Hemoglobin VBG pH Oxyhemoglobin Sodium Potassium Chloride Carbon Dioxide BUN Creatinine Glucose POC Glucose 189 H 191 H 251 H Lactic Acid Calcium AST Alkaline Phosphatase CK-MB (CK-2) CK-MB (CK-2) Rel Index Albumin TSH Urine WBC (Auto) Salicylates 02/04/17 02/04/17 02/05/17 11:20 17:20 00:17 WBC RBC Hgb Hct MCV MCH RDW Plt Count Lymph % (Auto) [place] % (Auto) Eos % (Auto) Seg Neutrophils % Seg Neuts % (Manual) Lymphocytes % (Manual) Seg Neutrophils # Seg Neutrophils # Man Lymphocytes # (Manual) APTT POC ABG pH ABG pH POC ABG pCO2 POC ABG pO2 ABG pO2 ABG HCO3 ABG Base Excess ABG Hemoglobin VBG pH Oxyhemoglobin Sodium Potassium Chloride Carbon Dioxide BUN Creatinine Glucose POC Glucose 243 H 163 H 200 H Lactic Acid Calcium AST Alkaline Phosphatase CK-MB (CK-2) CK-MB (CK-2) Rel Index Albumin TSH Urine WBC (Auto) Salicylates 02/05/17 02/05/17 02/05/17 05:38 12:38 16:29 WBC RBC Hgb Hct MCV MCH RDW Plt Count Lymph % (Auto) [place] % (Auto) Eos % (Auto) Seg Neutrophils % Seg Neuts % (Manual) Lymphocytes % (Manual) Seg Neutrophils # Seg Neutrophils # Man Lymphocytes # (Manual) APTT POC ABG pH ABG pH POC ABG pCO2 POC ABG pO2 ABG pO2 ABG HCO3 ABG Base Excess ABG Hemoglobin VBG pH Oxyhemoglobin Sodium Potassium Chloride Carbon Dioxide BUN Creatinine Glucose POC Glucose 248 H 241 H 257 H Lactic Acid Calcium AST Alkaline Phosphatase CK-MB (CK-2) CK-MB (CK-2) Rel Index Albumin TSH Urine WBC (Auto) Salicylates 02/05/17 02/06/17 02/06/17 23:56 05:30 11:50 WBC RBC Hgb Hct MCV MCH RDW Plt Count Lymph % (Auto) [place] % (Auto) Eos % (Auto) Seg Neutrophils % Seg Neuts % (Manual) Lymphocytes % (Manual) Seg Neutrophils # Seg Neutrophils # Man Lymphocytes # (Manual) APTT POC ABG pH ABG pH POC ABG pCO2 POC ABG pO2 ABG pO2 ABG HCO3 ABG Base Excess ABG Hemoglobin VBG pH Oxyhemoglobin Sodium Potassium Chloride Carbon Dioxide BUN Creatinine Glucose POC Glucose 258 H 120 H 254 H Lactic Acid Calcium AST Alkaline Phosphatase CK-MB (CK-2) CK-MB (CK-2) Rel Index Albumin TSH Urine WBC (Auto) Salicylates 02/06/17 02/06/17 02/07/17 17:11 23:50 05:22 WBC RBC Hgb Hct MCV MCH RDW Plt Count Lymph % (Auto) [place] % (Auto) Eos % (Auto) Seg Neutrophils % Seg Neuts % (Manual) Lymphocytes % (Manual) Seg Neutrophils # Seg Neutrophils # Man Lymphocytes # (Manual) APTT POC ABG pH ABG pH POC ABG pCO2 POC ABG pO2 ABG pO2 ABG HCO3 ABG Base Excess ABG Hemoglobin VBG pH Oxyhemoglobin Sodium Potassium Chloride Carbon Dioxide BUN Creatinine Glucose POC Glucose 149 H 240 H 258 H Lactic Acid Calcium AST Alkaline Phosphatase CK-MB (CK-2) CK-MB (CK-2) Rel Index Albumin TSH Urine WBC (Auto) Salicylates 1002/07/17 02/07/17 11:15 18:33 23:59 WBC RBC Hgb Hct MCV MCH RDW Plt Count Lymph % (Auto) [place] % (Auto) Eos % (Auto) Seg Neutrophils % Seg Neuts % (Manual) Lymphocytes % (Manual) Seg Neutrophils # Seg Neutrophils # Man Lymphocytes # (Manual) APTT POC ABG pH ABG pH POC ABG pCO2 POC ABG pO2 ABG pO2 ABG HCO3 ABG Base Excess ABG Hemoglobin VBG pH Oxyhemoglobin Sodium Potassium Chloride Carbon Dioxide BUN Creatinine Glucose POC Glucose 239 H 176 H 186 H Lactic Acid Calcium AST Alkaline Phosphatase CK-MB (CK-2) CK-MB (CK-2) Rel Index Albumin TSH Urine WBC (Auto) Salicylates 02/08/17 02/08/17 02/08/17 06:15 11:55 16:55 WBC RBC Hgb Hct MCV MCH RDW Plt Count Lymph % (Auto) [place] % (Auto) Eos % (Auto) Seg Neutrophils % Seg Neuts % (Manual) Lymphocytes % (Manual) Seg Neutrophils # Seg Neutrophils # Man Lymphocytes # (Manual) APTT POC ABG pH ABG pH POC ABG pCO2 POC ABG pO2 ABG pO2 ABG HCO3 ABG Base Excess ABG Hemoglobin VBG pH Oxyhemoglobin Sodium Potassium Chloride Carbon Dioxide BUN Creatinine Glucose POC Glucose 195 H 129 H 246 H Lactic Acid Calcium AST Alkaline Phosphatase CK-MB (CK-2) CK-MB (CK-2) Rel Index Albumin TSH Urine WBC (Auto) Salicylates 02/08/17 02/09/17 02/09/17 23:51 05:51 07:24 WBC 14.7 H RBC 3.39 L Hgb 8.9 L Hct 26.4 L MCV 78 L MCH 26 L RDW 18.4 H Plt Count 670 H Lymph % (Auto) 11.8 L [place] % (Auto) Eos % (Auto) Seg Neutrophils % 81.2 H Seg Neuts % (Manual) Lymphocytes % (Manual) Seg Neutrophils # 11.9 H Seg Neutrophils # Man Lymphocytes # (Manual) APTT POC ABG pH ABG pH POC ABG pCO2 POC ABG pO2 ABG pO2 ABG HCO3 ABG Base Excess ABG Hemoglobin VBG pH Oxyhemoglobin Sodium Potassium Chloride Carbon Dioxide BUN Creatinine Glucose POC Glucose 262 H 295 H Lactic Acid Calcium AST Alkaline Phosphatase CK-MB (CK-2) CK-MB (CK-2) Rel Index Albumin TSH Urine WBC (Auto) Salicylates 02/09/17 02/09/17 02/09/17 07:24 12:08 18:39 WBC RBC Hgb Hct MCV MCH RDW Plt Count Lymph % (Auto) [place] % (Auto) Eos % (Auto) Seg Neutrophils % Seg Neuts % (Manual) Lymphocytes % (Manual) Seg Neutrophils # Seg Neutrophils # Man Lymphocytes # (Manual) APTT POC ABG pH ABG pH POC ABG pCO2 POC ABG pO2 ABG pO2 ABG HCO3 ABG Base Excess ABG Hemoglobin VBG pH Oxyhemoglobin Sodium Potassium Chloride 95.5 L Carbon Dioxide BUN 52 H Creatinine Glucose 277 H POC Glucose 236 H 151 H Lactic Acid Calcium AST Alkaline Phosphatase CK-MB (CK-2) CK-MB (CK-2) Rel Index Albumin TSH Urine WBC (Auto) Salicylates 02/10/17 02/10/17 02/10/17 00:01 05:44 11:21 WBC RBC Hgb Hct MCV MCH RDW Plt Count Lymph % (Auto) [place] % (Auto) Eos % (Auto) Seg Neutrophils % Seg Neuts % (Manual) Lymphocytes % (Manual) Seg Neutrophils # Seg Neutrophils # Man Lymphocytes # (Manual) APTT POC ABG pH ABG pH POC ABG pCO2 POC ABG pO2 ABG pO2 ABG HCO3 ABG Base Excess ABG Hemoglobin VBG pH Oxyhemoglobin Sodium Potassium Chloride Carbon Dioxide BUN Creatinine Glucose POC Glucose 210 H 201 H 233 H Lactic Acid Calcium AST Alkaline Phosphatase CK-MB (CK-2) CK-MB (CK-2) Rel Index Albumin TSH Urine WBC (Auto) Salicylates 02/10/17 02/10/17 02/11/17 17:29 23:56 05:24 WBC RBC Hgb Hct MCV MCH RDW Plt Count Lymph % (Auto) [place] % (Auto) Eos % (Auto) Seg Neutrophils % Seg Neuts % (Manual) Lymphocytes % (Manual) Seg Neutrophils # Seg Neutrophils # Man Lymphocytes # (Manual) APTT POC ABG pH ABG pH POC ABG pCO2 POC ABG pO2 ABG pO2 ABG HCO3 ABG Base Excess ABG Hemoglobin VBG pH Oxyhemoglobin Sodium Potassium Chloride Carbon Dioxide BUN Creatinine Glucose POC Glucose 167 H 191 H 135 H Lactic Acid Calcium AST Alkaline Phosphatase CK-MB (CK-2) CK-MB (CK-2) Rel Index Albumin TSH Urine WBC (Auto) Salicylates 02/11/17 02/11/17 02/11/17 12:25 17:03 23:59 WBC RBC Hgb Hct MCV MCH RDW Plt Count Lymph % (Auto) [place] % (Auto) Eos % (Auto) Seg Neutrophils % Seg Neuts % (Manual) Lymphocytes % (Manual) Seg Neutrophils # Seg Neutrophils # Man Lymphocytes # (Manual) APTT POC ABG pH ABG pH POC ABG pCO2 POC ABG pO2 ABG pO2 ABG HCO3 ABG Base Excess ABG Hemoglobin VBG pH Oxyhemoglobin Sodium Potassium Chloride Carbon Dioxide BUN Creatinine Glucose POC Glucose 275 H 172 H 215 H Lactic Acid Calcium AST Alkaline Phosphatase CK-MB (CK-2) CK-MB (CK-2) Rel Index Albumin TSH Urine WBC (Auto) Salicylates 02/12/17 02/12/17 02/12/17 05:39 11:33 17:55 WBC RBC Hgb Hct MCV MCH RDW Plt Count Lymph % (Auto) [place] % (Auto) Eos % (Auto) Seg Neutrophils % Seg Neuts % (Manual) Lymphocytes % (Manual) Seg Neutrophils # Seg Neutrophils # Man Lymphocytes # (Manual) APTT POC ABG pH ABG pH POC ABG pCO2 POC ABG pO2 ABG pO2 ABG HCO3 ABG Base Excess ABG Hemoglobin VBG pH Oxyhemoglobin Sodium Potassium Chloride Carbon Dioxide BUN Creatinine Glucose POC Glucose 261 H 217 H 172 H Lactic Acid Calcium AST Alkaline Phosphatase CK-MB (CK-2) CK-MB (CK-2) Rel Index Albumin TSH Urine WBC (Auto) Salicylates 02/13/17 02/13/17 02/13/17 00:25 06:46 11:26 WBC RBC Hgb Hct MCV MCH RDW Plt Count Lymph % (Auto) [place] % (Auto) Eos % (Auto) Seg Neutrophils % Seg Neuts % (Manual) Lymphocytes % (Manual) Seg Neutrophils # Seg Neutrophils # Man Lymphocytes # (Manual) APTT POC ABG pH ABG pH POC ABG pCO2 POC ABG pO2 ABG pO2 ABG HCO3 ABG Base Excess ABG Hemoglobin VBG pH Oxyhemoglobin Sodium Potassium Chloride Carbon Dioxide BUN Creatinine Glucose POC Glucose 207 H 219 H 231 H Lactic Acid Calcium AST Alkaline Phosphatase CK-MB (CK-2) CK-MB (CK-2) Rel Index Albumin TSH Urine WBC (Auto) Salicylates 02/13/17 02/13/17 02/14/17 17:12 23:44 05:44 WBC RBC Hgb Hct MCV MCH RDW Plt Count Lymph % (Auto) [place] % (Auto) Eos % (Auto) Seg Neutrophils % Seg Neuts % (Manual) Lymphocytes % (Manual) Seg Neutrophils # Seg Neutrophils # Man Lymphocytes # (Manual) APTT POC ABG pH ABG pH POC ABG pCO2 POC ABG pO2 ABG pO2 ABG HCO3 ABG Base Excess ABG Hemoglobin VBG pH Oxyhemoglobin Sodium Potassium Chloride Carbon Dioxide BUN Creatinine Glucose POC Glucose 190 H 256 H 184 H Lactic Acid Calcium AST Alkaline Phosphatase CK-MB (CK-2) CK-MB (CK-2) Rel Index Albumin TSH Urine WBC (Auto) Salicylates 02/14/17 02/14/17 02/14/17 12:21 17:57 23:18 WBC RBC Hgb Hct MCV MCH RDW Plt Count Lymph % (Auto) [place] % (Auto) Eos % (Auto) Seg Neutrophils % Seg Neuts % (Manual) Lymphocytes % (Manual) Seg Neutrophils # Seg Neutrophils # Man Lymphocytes # (Manual) APTT POC ABG pH ABG pH POC ABG pCO2 POC ABG pO2 ABG pO2 ABG HCO3 ABG Base Excess ABG Hemoglobin VBG pH Oxyhemoglobin Sodium Potassium Chloride Carbon Dioxide BUN Creatinine Glucose POC Glucose 233 H 155 H 165 H Lactic Acid Calcium AST Alkaline Phosphatase CK-MB (CK-2) CK-MB (CK-2) Rel Index Albumin TSH Urine WBC (Auto) Salicylates 02/15/17 02/15/17 02/15/17 05:33 11:45 17:20 WBC RBC Hgb Hct MCV MCH RDW Plt Count Lymph % (Auto) [place] % (Auto) Eos % (Auto) Seg Neutrophils % Seg Neuts % (Manual) Lymphocytes % (Manual) Seg Neutrophils # Seg Neutrophils # Man Lymphocytes # (Manual) APTT POC ABG pH ABG pH POC ABG pCO2 POC ABG pO2 ABG pO2 ABG HCO3 ABG Base Excess ABG Hemoglobin VBG pH Oxyhemoglobin Sodium Potassium Chloride Carbon Dioxide BUN Creatinine Glucose POC Glucose 239 H 130 H 189 H Lactic Acid Calcium AST Alkaline Phosphatase CK-MB (CK-2) CK-MB (CK-2) Rel Index Albumin TSH Urine WBC (Auto) Salicylates 02/16/17 02/16/1702/16/17 00:14 05:09 12:31 WBC RBC Hgb Hct MCV MCH RDW Plt Count Lymph % (Auto) [place] % (Auto) Eos % (Auto) Seg Neutrophils % Seg Neuts % (Manual) Lymphocytes % (Manual) Seg Neutrophils # Seg Neutrophils # Man Lymphocytes # (Manual) APTT POC ABG pH ABG pH POC ABG pCO2 POC ABG pO2 ABG pO2 ABG HCO3 ABG Base Excess ABG Hemoglobin VBG pH Oxyhemoglobin Sodium Potassium Chloride Carbon Dioxide BUN Creatinine Glucose POC Glucose 197 H 226 H 178 H Lactic Acid Calcium AST Alkaline Phosphatase CK-MB (CK-2) CK-MB (CK-2) Rel Index Albumin TSH Urine WBC (Auto) Salicylates 02/16/17 02/16/17 02/17/17 16:35 23:49 05:37 WBC RBC Hgb Hct MCV MCH RDW Plt Count Lymph % (Auto) [place] % (Auto) Eos % (Auto) Seg Neutrophils % Seg Neuts % (Manual) Lymphocytes % (Manual) Seg Neutrophils # Seg Neutrophils # Man Lymphocytes # (Manual) APTT POC ABG pH ABG pH POC ABG pCO2 POC ABG pO2 ABG pO2 ABG HCO3 ABG Base Excess ABG Hemoglobin VBG pH Oxyhemoglobin Sodium Potassium Chloride Carbon Dioxide BUN Creatinine Glucose POC Glucose 174 H 62 L 153 H Lactic Acid Calcium AST Alkaline Phosphatase CK-MB (CK-2) CK-MB (CK-2) Rel Index Albumin TSH Urine WBC (Auto) Salicylates 02/17/17 02/17/17 02/17/17 11:39 17:02 22:24 WBC RBC Hgb Hct MCV MCH RDW Plt Count Lymph % (Auto) [place] % (Auto) Eos % (Auto) Seg Neutrophils % Seg Neuts % (Manual) Lymphocytes % (Manual) Seg Neutrophils # Seg Neutrophils # Man Lymphocytes # (Manual) APTT POC ABG pH ABG pH POC ABG pCO2 POC ABG pO2 ABG pO2 ABG HCO3 ABG Base Excess ABG Hemoglobin VBG pH Oxyhemoglobin Sodium Potassium Chloride Carbon Dioxide BUN Creatinine Glucose POC Glucose 231 H 112 H 116 H Lactic Acid Calcium AST Alkaline Phosphatase CK-MB (CK-2) CK-MB (CK-2) Rel Index Albumin TSH Urine WBC (Auto) Salicylates 02/18/17 02/19/17 02/19/17 15:34 05:09 07:57 WBC RBC Hgb Hct MCV MCH RDW Plt Count Lymph % (Auto) [place] % (Auto) Eos % (Auto) Seg Neutrophils % Seg Neuts % (Manual) Lymphocytes % (Manual) Seg Neutrophils # Seg Neutrophils # Man Lymphocytes # (Manual) APTT POC ABG pH ABG pH POC ABG pCO2 POC ABG pO2 ABG pO2 ABG HCO3 ABG Base Excess ABG Hemoglobin VBG pH Oxyhemoglobin Sodium Potassium Chloride Carbon Dioxide BUN Creatinine Glucose POC Glucose 215 H 218 H 283 H Lactic Acid Calcium AST Alkaline Phosphatase CK-MB (CK-2) CK-MB (CK-2) Rel Index Albumin TSH Urine WBC (Auto) Salicylates 02/19/17 02/19/17 02/20/17 14:49 22:10 05:10 WBC RBC Hgb Hct MCV MCH RDW Plt Count Lymph % (Auto) [place] % (Auto) Eos % (Auto) Seg Neutrophils % Seg Neuts % (Manual) Lymphocytes % (Manual) Seg Neutrophils # Seg Neutrophils # Man Lymphocytes # (Manual) APTT POC ABG pH ABG pH POC ABG pCO2 POC ABG pO2 ABG pO2 ABG HCO3 ABG Base Excess ABG Hemoglobin VBG pH Oxyhemoglobin Sodium Potassium Chloride Carbon Dioxide BUN Creatinine Glucose POC Glucose 290 H 169 H 209 H Lactic Acid Calcium AST Alkaline Phosphatase CK-MB (CK-2) CK-MB (CK-2) Rel Index Albumin TSH Urine WBC (Auto) Salicylates 02/20/17 02/20/17 02/21/17 15:05 21:52 02:00 WBC RBC Hgb Hct MCV MCH RDW Plt Count Lymph % (Auto) [place] % (Auto) Eos % (Auto) Seg Neutrophils % Seg Neuts % (Manual) Lymphocytes % (Manual) Seg Neutrophils # Seg Neutrophils # Man Lymphocytes # (Manual) APTT POC ABG pH ABG pH POC ABG pCO2 POC ABG pO2 ABG pO2 ABG HCO3 ABG Base Excess ABG Hemoglobin VBG pH Oxyhemoglobin Sodium Potassium Chloride Carbon Dioxide BUN Creatinine Glucose POC Glucose 172 H 209 H 216 H Lactic Acid Calcium AST Alkaline Phosphatase CK-MB (CK-2) CK-MB (CK-2) Rel Index Albumin TSH Urine WBC (Auto) Salicylates 02/21/17 02/21/17 02/21/17 04:54 14:43 17:47 WBC RBC Hgb Hct MCV MCH RDW Plt Count Lymph % (Auto) [place] % (Auto) Eos % (Auto) Seg Neutrophils % Seg Neuts % (Manual) Lymphocytes % (Manual) Seg Neutrophils # Seg Neutrophils # Man Lymphocytes # (Manual) APTT POC ABG pH ABG pH POC ABG pCO2 POC ABG pO2 ABG pO2 ABG HCO3 ABG Base Excess ABG Hemoglobin VBG pH Oxyhemoglobin Sodium Potassium Chloride Carbon Dioxide BUN Creatinine Glucose POC Glucose 227 H 290 H 220 H Lactic Acid Calcium AST Alkaline Phosphatase CK-MB (CK-2) CK-MB (CK-2) Rel Index Albumin TSH Urine WBC (Auto) Salicylates 02/21/17 02/22/17 02/22/17 22:02 04:52 15:25 WBC RBC Hgb Hct MCV MCH RDW Plt Count Lymph % (Auto) [place] % (Auto) Eos % (Auto) Seg Neutrophils % Seg Neuts % (Manual) Lymphocytes % (Manual) Seg Neutrophils # Seg Neutrophils # Man Lymphocytes # (Manual) APTT POC ABG pH ABG pH POC ABG pCO2 POC ABG pO2 ABG pO2 ABG HCO3 ABG Base Excess ABG Hemoglobin VBG pH Oxyhemoglobin Sodium Potassium Chloride Carbon Dioxide BUN Creatinine Glucose POC Glucose 246 H 212 H 236 H Lactic Acid Calcium AST Alkaline Phosphatase CK-MB (CK-2) CK-MB (CK-2) Rel Index Albumin TSH Urine WBC (Auto) Salicylates 02/22/17 02/23/17 02/23/17 21:33 06:04 10:00 WBC RBC Hgb Hct MCV MCH RDW Plt Count Lymph % (Auto) [place] % (Auto) Eos % (Auto) Seg Neutrophils % Seg Neuts % (Manual) Lymphocytes % (Manual) Seg Neutrophils # Seg Neutrophils # Man Lymphocytes # (Manual) APTT POC ABG pH ABG pH POC ABG pCO2 POC ABG pO2 ABG pO2 ABG HCO3 ABG Base Excess ABG Hemoglobin VBG pH Oxyhemoglobin Sodium Potassium Chloride Carbon Dioxide BUN Creatinine Glucose POC Glucose 255 H 208 H 174 H Lactic Acid Calcium AST Alkaline Phosphatase CK-MB (CK-2) CK-MB (CK-2) Rel Index Albumin TSH Urine WBC (Auto) Salicylates 02/23/17 02/23/17 02/23/17 12:52 17:15 21:51 WBC RBC Hgb Hct MCV MCH RDW Plt Count Lymph % (Auto) [place] % (Auto) Eos % (Auto) Seg Neutrophils % Seg Neuts % (Manual) Lymphocytes % (Manual) Seg Neutrophils # Seg Neutrophils # Man Lymphocytes # (Manual) APTT POC ABG pH ABG pH POC ABG pCO2 POC ABG pO2 ABG pO2 ABG HCO3 ABG Base Excess ABG Hemoglobin VBG pH Oxyhemoglobin Sodium Potassium Chloride Carbon Dioxide BUN Creatinine Glucose POC Glucose 203 H 269 H 205 H Lactic Acid Calcium AST Alkaline Phosphatase CK-MB (CK-2) CK-MB (CK-2) Rel Index Albumin TSH Urine WBC (Auto) Salicylates 02/24/17 02/24/17 02/24/17 10:23 17:45 21:24 WBC RBC Hgb Hct MCV MCH RDW Plt Count Lymph % (Auto) [place] % (Auto) Eos % (Auto) Seg Neutrophils % Seg Neuts % (Manual) Lymphocytes % (Manual) Seg Neutrophils # Seg Neutrophils # Man Lymphocytes # (Manual) APTT POC ABG pH ABG pH POC ABG pCO2 POC ABG pO2 ABG pO2 ABG HCO3 ABG Base Excess ABG Hemoglobin VBG pH Oxyhemoglobin Sodium Potassium Chloride Carbon Dioxide BUN Creatinine Glucose POC Glucose 280 H 239 H 254 H Lactic Acid Calcium AST Alkaline Phosphatase CK-MB (CK-2) CK-MB (CK-2) Rel Index Albumin TSH Urine WBC (Auto) Salicylates 02/25/17 02/25/17 02/25/17 02:12 05:17 14:32 WBC RBC Hgb Hct MCV MCH RDW Plt Count Lymph % (Auto) [place] % (Auto) Eos % (Auto) Seg Neutrophils % Seg Neuts % (Manual) Lymphocytes % (Manual) Seg Neutrophils # Seg Neutrophils # Man Lymphocytes # (Manual) APTT POC ABG pH ABG pH POC ABG pCO2 POC ABG pO2 ABG pO2 ABG HCO3 ABG Base Excess ABG Hemoglobin VBG pH Oxyhemoglobin Sodium Potassium Chloride Carbon Dioxide BUN Creatinine Glucose POC Glucose 296 H 332 H 353 H Lactic Acid Calcium AST Alkaline Phosphatase CK-MB (CK-2) CK-MB (CK-2) Rel Index Albumin TSH Urine WBC (Auto) Salicylates 02/25/17 02/26/17 02/26/17 22:14 00:37 05:52 WBC RBC Hgb Hct MCV MCH RDW Plt Count Lymph % (Auto) [place] % (Auto) Eos % (Auto) Seg Neutrophils % Seg Neuts % (Manual) Lymphocytes % (Manual) Seg Neutrophils # Seg Neutrophils # Man Lymphocytes # (Manual) APTT POC ABG pH ABG pH POC ABG pCO2 POC ABG pO2 ABG pO2 ABG HCO3 ABG Base Excess ABG Hemoglobin VBG pH Oxyhemoglobin Sodium Potassium Chloride Carbon Dioxide BUN Creatinine Glucose POC Glucose 201 H 233 H 269 H Lactic Acid Calcium AST Alkaline Phosphatase CK-MB (CK-2) CK-MB (CK-2) Rel Index Albumin TSH Urine WBC (Auto) Salicylates 02/26/17 02/26/17 02/26/17 11:48 13:49 21:26 WBC RBC Hgb Hct MCV MCH RDW Plt Count Lymph % (Auto) [place] % (Auto) Eos % (Auto) Seg Neutrophils % Seg Neuts % (Manual) Lymphocytes % (Manual) Seg Neutrophils # Seg Neutrophils # Man Lymphocytes # (Manual) APTT POC ABG pH ABG pH POC ABG pCO2 POC ABG pO2 ABG pO2 ABG HCO3 ABG Base Excess ABG Hemoglobin VBG pH Oxyhemoglobin Sodium Potassium Chloride Carbon Dioxide BUN Creatinine Glucose POC Glucose 333 H 322 H 244 H Lactic Acid Calcium AST Alkaline Phosphatase CK-MB (CK-2) CK-MB (CK-2) Rel Index Albumin TSH Urine WBC (Auto) Salicylates 02/27/17 02/27/17 02/27/17 05:27 13:51 21:48 WBC RBC Hgb Hct MCV MCH RDW Plt Count Lymph % (Auto) [place] % (Auto) Eos % (Auto) Seg Neutrophils % Seg Neuts % (Manual) Lymphocytes % (Manual) Seg Neutrophils # Seg Neutrophils # Man Lymphocytes # (Manual) APTT POC ABG pH ABG pH POC ABG pCO2 POC ABG pO2 ABG pO2 ABG HCO3 ABG Base Excess ABG Hemoglobin VBG pH Oxyhemoglobin Sodium Potassium Chloride Carbon Dioxide BUN Creatinine Glucose POC Glucose 217 H 239 H 254 H Lactic Acid Calcium AST Alkaline Phosphatase CK-MB (CK-2) CK-MB (CK-2) Rel Index Albumin TSH Urine WBC (Auto) Salicylates 02/28/17 02/28/17 02/28/17 05:38 11:00 19:44 WBC RBC Hgb Hct MCV MCH RDW Plt Count Lymph % (Auto) [place] % (Auto) Eos % (Auto) Seg Neutrophils % Seg Neuts % (Manual) Lymphocytes % (Manual) Seg Neutrophils # Seg Neutrophils # Man Lymphocytes # (Manual) APTT POC ABG pH ABG pH POC ABG pCO2 POC ABG pO2 ABG pO2 ABG HCO3 ABG Base Excess ABG Hemoglobin VBG pH Oxyhemoglobin Sodium Potassium Chloride Carbon Dioxide BUN Creatinine Glucose POC Glucose 325 H 203 H 116 H Lactic Acid Calcium AST Alkaline Phosphatase CK-MB (CK-2) CK-MB (CK-2) Rel Index Albumin TSH Urine WBC (Auto) Salicylates 03/01/17 03/01/17 03/01/17 00:08 05:31 12:17 WBC RBC Hgb Hct MCV MCH RDW Plt Count Lymph % (Auto) [place] % (Auto) Eos % (Auto) Seg Neutrophils % Seg Neuts % (Manual) Lymphocytes % (Manual) Seg Neutrophils # Seg Neutrophils # Man Lymphocytes # (Manual) APTT POC ABG pH ABG pH POC ABG pCO2 POC ABG pO2 ABG pO2 ABG HCO3 ABG Base Excess ABG Hemoglobin VBG pH Oxyhemoglobin Sodium Potassium Chloride Carbon Dioxide BUN Creatinine Glucose POC Glucose 202 H 183 H 184 H Lactic Acid Calcium AST Alkaline Phosphatase CK-MB (CK-2) CK-MB (CK-2) Rel Index Albumin TSH Urine WBC (Auto) Salicylates 03/02/17 03/02/17 00:12 05:58 WBC RBC Hgb Hct MCV MCH RDW Plt Count Lymph % (Auto) [place] % (Auto) Eos % (Auto) Seg Neutrophils % Seg Neuts % (Manual) Lymphocytes % (Manual) Seg Neutrophils # Seg Neutrophils # Man Lymphocytes # (Manual) APTT POC ABG pH ABG pH POC ABG pCO2 POC ABG pO2 ABG pO2 ABG HCO3 ABG Base Excess ABG Hemoglobin VBG pH Oxyhemoglobin Sodium Potassium Chloride Carbon Dioxide BUN Creatinine Glucose POC Glucose 117 H 176 H Lactic Acid Calcium AST Alkaline Phosphatase CK-MB (CK-2) CK-MB (CK-2) Rel Index Albumin TSH Urine WBC (Auto) Salicylates
--- NOTE | 2017-03-02 13:44 | Progress Note ---
Assessment and Plan Assessment and Plan Hypoglycemic brain injury Persistent vegetative state Metabolic encephalopathy Hypoglycemia/hypothermia, resolved Acute respiratory failure mechanical ventilator greater than 96 hours UTI with klebsiella, treated ( Cx + on 01/28), now with ESBL on meropenam day one hyponatremia, Hypothyroidism IDDM Hypertension low grade Fever, resolved - Cont supportive care and current medication. Monitor vitals, repeat cx on - no growth - increased dose of long acting insulin to 15 unit - Patient is DNR- needs guardianship from the state to give consent for further management, as has no family to give consent. Subjective Date of service: 03/02/17 Principal diagnosis: Acute respiratory failure,encephalopathy Interval history: Same condition Objective - Constitutional Vitals: Vital Signs - 12hr 03/02/17 03/02/17 03/02/17 02:00 04:00 05:01 Temperature 97.6 F Pulse Rate 60 63 63 Pulse Rate [ 58 L From Monitor] Respiratory 12 12 Rate Blood Pressure 148/85 144/88 144/88 O2 Sat by Pulse 100 100 99 Oximetry 03/02/17 03/02/17 03/02/17 06:00 09:09 09:14 Temperature Pulse Rate 61 60 59 L Pulse Rate [ From Monitor] Respiratory 12 17 Rate Blood Pressure 145/82 130/77 130/77 O2 Sat by Pulse 100 100 100 Oximetry 03/02/17 11:31 Temperature Pulse Rate 59 L Pulse Rate [ From Monitor] Respiratory 18 Rate Blood Pressure 122/77 O2 Sat by Pulse 100 Oximetry General appearance: Present: no acute distress, well-nourished - EENT Eyes: PERRL, EOM intact ENT: hearing intact, clear oral mucosa Ears: bilateral: normal - Neck Neck: supple, normal ROM - Respiratory Respiratory effort: normal Respiratory: bilateral: CTA - Breasts Breasts: normal - Cardiovascular Rhythm: regular Heart Sounds: Present: S1 & S2. Absent: gallop, rub Extremities: pulses intact, No edema, normal color, Full ROM - Gastrointestinal General gastrointestinal: Present: soft, non-tender, non-distended, normal bowel sounds - Genitourinary Male genitourinary: normal - Integumentary Integumentary: clear, warm, dry - Musculoskeletal Musculoskeletal: 1, strength equal bilaterally - Neurologic Neurologic: moves all extremities - Psychiatric Psychiatric: memory intact, appropriate mood/affect, intact judgment & insight - Labs CBC & Chem 7: 02/09/17 07:24 02/09/17 07:24 Labs: Abnormal lab results 02/28/17 03/01/17 03/02/17 Range/Units 11:00 12:17 00:12 POC Glucose 203 H 184 H 117 H (70-105) 03/02/17 Range/Units 05:58 POC Glucose 176 H (70-105)
[2017-03-03] MEDS: IMODIUM PO PRN (00:18)
[2017-03-03] MEDS: HumuLIN R SUB-Q SCH ×3 (00:18→15:28)
[2017-03-03] MEDS: SYNTHROID PO SCH (05:53)
--- NOTE | 2017-03-03 07:04 | Progress Note ---
Assessment and Plan 51 y/o male found down, concern for sepsis and now encephalopathic requiring mechanical ventilation. 1. continue supportive care 2. 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 I am aware that he is an AND but trach will not fix this problem and is not in my professional opinion the right thing to do for this patient. Most likely he will never be weaned from the vent and will remain in a persistent vegatative state. 3. Patient is not on abx therapy and currently does not need this 4. Will discontinue labetalol therapy. Subjective Date of service: 03/03/17 Principal diagnosis: Acute respiratory failure,encephalopathy Interval history: Called by nursing last night that patient was to received labetalol 200 BID but had bradycardia and marginal BP's. This medication was held. Otherwise, no events. Objective Vital Signs - 12hr 03/02/17 03/02/17 03/02/17 19:06 20:00 22:00 Temperature 98.0 F Pulse Rate 60 60 60 Pulse Rate [ From Monitor] Respiratory 12 12 Rate Blood Pressure 119/17 117/70 117/69 O2 Sat by Pulse 98 100 100 Oximetry 03/02/17 03/02/17 03/02/17 22:20 22:39 23:17 Temperature Pulse Rate 60 62 Pulse Rate [ 60 From Monitor] Respiratory Rate Blood Pressure 117/69 117/69 O2 Sat by Pulse 100 Oximetry 03/03/17 03/03/17 03/03/17 00:00 00:08 03:31 Temperature 97.7 F Pulse Rate 70 71 Pulse Rate [ From Monitor] Respiratory Rate Blood Pressure 139/80 O2 Sat by Pulse 97 Oximetry 03/03/17 04:00 Temperature 98.1 F Pulse Rate Pulse Rate [ From Monitor] Respiratory Rate Blood Pressure O2 Sat by Pulse Oximetry Constitutional: no acute distress, alert, other (orally intubated, on vent support) Eyes: non-icteric ENT: oropharynx moist Neck: supple, no JVD Effort: normal Ascultation: Bilateral: clear, diminished breath sounds Cardiovascular: regular rate and rhythm Gastrointestinal: normoactive bowel sounds, soft, non-tender, non-distended Integumentary: normal Extremities: no cyanosis, no edema, pink and warm Neurologic: other (awake spontaneously, not not following any commands. Fixed stare.) Psychiatric: other (unable to obtain) CBC and BMP: 11/01/17 07:24 02/09/17 07:24 ABG, PT/INR, D-dimer: ABG POC ABG pH 7.442 (7.35-7.45) 01/31/17 18:55 ABG pH 7.420 pH Units (7.350-7.450) 01/17/17 04:35 POC ABG pCO2 32.8 (35-45) L 01/31/17 18:55 ABG pCO2 34.5 mm Hg 01/17/17 04:35 POC ABG pO2 82 (80-105) 01/31/17 18:55 ABG pO2 160.3 mm Hg (80.0-90.0) H 01/17/17 04:35 POC ABG HCO3 22.4 01/31/17 18:55 POC ABG Total CO2 23 01/31/17 18:55 POC ABG O2 Sat 97 01/31/17 18:55 ABG O2 Saturation 99.0 % (95.0-99.0) 01/17/17 04:35 PT/INR, D-dimer PT 14.1 Sec. (12.2-14.9) 01/17/17 04:10 INR 1.04 (0.87-1.13) 01/17/17 04:10 Abnormal lab findings: Abnormal Labs 01/09/17 01/09/17 01/09/17 10:16 10:16 10:16 WBC RBC Hgb 9.7 L Hct 28.4 L MCV 76 L MCH 26 L RDW 17.2 H Plt Count 448 H Lymph % (Auto) [place] % (Auto) Eos % (Auto) Seg Neutrophils % 79.5 H Seg Neuts % (Manual) Lymphocytes % (Manual) Seg Neutrophils # Seg Neutrophils # Man Lymphocytes # (Manual) APTT 39.6 H POC ABG pH ABG pH POC ABG pCO2 POC ABG pO2 ABG pO2 ABG HCO3 ABG Base Excess ABG Hemoglobin VBG pH Oxyhemoglobin Sodium 132 L Potassium Chloride 96.7 L Carbon Dioxide 21 L BUN 34 H Creatinine Glucose POC Glucose Lactic Acid Calcium 8.3 L AST Alkaline Phosphatase 151 H CK-MB (CK-2) 7.1 H CK-MB (CK-2) Rel Index 5.2 H Albumin 3.3 L TSH Urine WBC (Auto) Salicylates 01/09/17 01/09/17 01/09/17 10:16 10:16 10:16 WBC RBC Hgb Hct MCV MCH RDW Plt Count Lymph % (Auto) [place] % (Auto) Eos % (Auto) Seg Neutrophils % Seg Neuts % (Manual) Lymphocytes % (Manual) Seg Neutrophils # Seg Neutrophils # Man Lymphocytes # (Manual) APTT POC ABG pH ABG pH POC ABG pCO2 POC ABG pO2 ABG pO2 ABG HCO3 ABG Base Excess ABG Hemoglobin VBG pH 7.284 L Oxyhemoglobin Sodium Potassium Chloride Carbon Dioxide BUN Creatinine Glucose POC Glucose Lactic Acid Calcium AST Alkaline Phosphatase CK-MB (CK-2) CK-MB (CK-2) Rel Index Albumin TSH 52.800 H Urine WBC (Auto) Salicylates < 0.3 L 01/09/17 01/09/17 01/09/17 10:23 11:14 12:49 WBC RBC Hgb Hct MCV MCH RDW Plt Count Lymph % (Auto) [place] % (Auto) Eos % (Auto) Seg Neutrophils % Seg Neuts % (Manual) Lymphocytes % (Manual) Seg Neutrophils # Seg Neutrophils # Man Lymphocytes # (Manual) APTT POC ABG pH ABG pH POC ABG pCO2 POC ABG pO2 643 H ABG pO2 ABG HCO3 ABG Base Excess ABG Hemoglobin VBG pH Oxyhemoglobin Sodium Potassium Chloride Carbon Dioxide BUN Creatinine Glucose POC Glucose < 40 L Lactic Acid Calcium AST Alkaline Phosphatase CK-MB (CK-2) CK-MB (CK-2) Rel Index Albumin TSH Urine WBC (Auto) 61.0 H Salicylates 01/09/17 01/09/17 01/09/17 13:13 14:21 15:09 WBC RBC Hgb Hct MCV MCH RDW Plt Count Lymph % (Auto) [place] % (Auto) Eos % (Auto) Seg Neutrophils % Seg Neuts % (Manual) Lymphocytes % (Manual) Seg Neutrophils # Seg Neutrophils # Man Lymphocytes # (Manual) APTT POC ABG pH ABG pH POC ABG pCO2 POC ABG pO2 ABG pO2 ABG HCO3 ABG Base Excess ABG Hemoglobin VBG pH Oxyhemoglobin Sodium Potassium Chloride Carbon Dioxide BUN Creatinine Glucose POC Glucose 128 H 65 L 120 H Lactic Acid Calcium AST Alkaline Phosphatase CK-MB (CK-2) CK-MB (CK-2) Rel Index Albumin TSH Urine WBC (Auto) Salicylates 01/09/17 01/09/17 01/10/17 16:28 17:14 04:30 WBC 24.1 H RBC 3.38 L Hgb 8.5 L Hct 26.0 L MCV 77 L MCH 25 L RDW 17.9 H Plt Count 474 H Lymph % (Auto) [place] % (Auto) Eos % (Auto) Seg Neutrophils % Seg Neuts % (Manual) 88.0 H Lymphocytes % (Manual) 4.0 L Seg Neutrophils # Seg Neutrophils # Man 21.2 H Lymphocytes # (Manual) 1.0 L APTT POC ABG pH ABG pH POC ABG pCO2 POC ABG pO2 ABG pO2 ABG HCO3 ABG Base Excess ABG Hemoglobin VBG pH Oxyhemoglobin Sodium Potassium Chloride Carbon Dioxide BUN Creatinine Glucose POC Glucose 44 L 112 H Lactic Acid Calcium AST Alkaline Phosphatase CK-MB (CK-2) CK-MB (CK-2) Rel Index Albumin TSH Urine WBC (Auto) Salicylates 01/10/17 01/10/17 01/10/17 04:30 05:41 05:45 WBC RBC Hgb Hct MCV MCH RDW Plt Count Lymph % (Auto) [place] % (Auto) Eos % (Auto) Seg Neutrophils % Seg Neuts % (Manual) Lymphocytes % (Manual) Seg Neutrophils # Seg Neutrophils # Man Lymphocytes # (Manual) APTT POC ABG pH ABG pH POC ABG pCO2 26.6 L POC ABG pO2 207 H ABG pO2 ABG HCO3 ABG Base Excess ABG Hemoglobin VBG pH Oxyhemoglobin Sodium Potassium Chloride Carbon Dioxide 17 L BUN 27 H Creatinine Glucose POC Glucose 68 L Lactic Acid Calcium 7.5 L AST Alkaline Phosphatase CK-MB (CK-2) CK-MB (CK-2) Rel Index Albumin TSH Urine WBC (Auto) Salicylates 01/10/17 01/10/17 01/10/17 07:47 10:50 13:41 WBC RBC Hgb Hct MCV MCH RDW Plt Count Lymph % (Auto) [place] % (Auto) Eos % (Auto) Seg Neutrophils % Seg Neuts % (Manual) Lymphocytes % (Manual) Seg Neutrophils # Seg Neutrophils # Man Lymphocytes # (Manual) APTT POC ABG pH ABG pH POC ABG pCO2 POC ABG pO2 ABG pO2 ABG HCO3 ABG Base Excess ABG Hemoglobin VBG pH Oxyhemoglobin Sodium Potassium Chloride Carbon Dioxide BUN Creatinine Glucose POC Glucose 148 H 165 H 114 H Lactic Acid Calcium AST Alkaline Phosphatase CK-MB (CK-2) CK-MB (CK-2) Rel Index Albumin TSH Urine WBC (Auto) Salicylates 01/10/17 01/10/17 01/10/17 20:20 21:39 23:24 WBC RBC Hgb Hct MCV MCH RDW Plt Count Lymph % (Auto) [place] % (Auto) Eos % (Auto) Seg Neutrophils % Seg Neuts % (Manual) Lymphocytes % (Manual) Seg Neutrophils # Seg Neutrophils # Man Lymphocytes # (Manual) APTT POC ABG pH ABG pH POC ABG pCO2 POC ABG pO2 ABG pO2 ABG HCO3 ABG Base Excess ABG Hemoglobin VBG pH Oxyhemoglobin Sodium Potassium Chloride Carbon Dioxide BUN Creatinine Glucose POC Glucose 150 H 175 H 155 H Lactic Acid Calcium AST Alkaline Phosphatase CK-MB (CK-2) CK-MB (CK-2) Rel Index Albumin TSH Urine WBC (Auto) Salicylates 01/11/17 01/11/17 01/11/17 00:19 04:06 05:20 WBC 15.2 H RBC 3.40 L Hgb 8.9 L Hct 26.3 L MCV 78 L MCH 26 L RDW 18.6 H Plt Count 462 H Lymph % (Auto) 13.2 L [place] % (Auto) Eos % (Auto) Seg Neutrophils % 80.8 H Seg Neuts % (Manual) Lymphocytes % (Manual) Seg Neutrophils # 12.3 H Seg Neutrophils # Man Lymphocytes # (Manual) APTT POC ABG pH 7.463 H ABG pH POC ABG pCO2 26.2 L POC ABG pO2 185 H ABG pO2 ABG HCO3 ABG Base Excess ABG Hemoglobin VBG pH Oxyhemoglobin Sodium Potassium Chloride Carbon Dioxide BUN Creatinine Glucose POC Glucose 163 H Lactic Acid Calcium AST Alkaline Phosphatase CK-MB (CK-2) CK-MB (CK-2) Rel Index Albumin TSH Urine WBC (Auto) Salicylates 01/11/17 01/11/17 01/11/17 05:20 06:21 07:57 WBC RBC Hgb Hct MCV MCH RDW Plt Count Lymph % (Auto) [place] % (Auto) Eos % (Auto) Seg Neutrophils % Seg Neuts % (Manual) Lymphocytes % (Manual) Seg Neutrophils # Seg Neutrophils # Man Lymphocytes # (Manual) APTT POC ABG pH ABG pH POC ABG pCO2 POC ABG pO2 ABG pO2 ABG HCO3 ABG Base Excess ABG Hemoglobin VBG pH Oxyhemoglobin Sodium Potassium 3.4 L Chloride 111.5 H Carbon Dioxide 17 L BUN Creatinine Glucose 147 H POC Glucose 139 H 188 H Lactic Acid Calcium 8.0 L AST Alkaline Phosphatase CK-MB (CK-2) CK-MB (CK-2) Rel Index Albumin TSH Urine WBC (Auto) Salicylates 01/11/17 01/11/17 01/11/17 11:46 16:50 23:15 WBC RBC Hgb Hct MCV MCH RDW Plt Count Lymph % (Auto) [place] % (Auto) Eos % (Auto) Seg Neutrophils % Seg Neuts % (Manual) Lymphocytes % (Manual) Seg Neutrophils # Seg Neutrophils # Man Lymphocytes # (Manual) APTT POC ABG pH ABG pH POC ABG pCO2 POC ABG pO2 ABG pO2 ABG HCO3 ABG Base Excess ABG Hemoglobin VBG pH Oxyhemoglobin Sodium Potassium Chloride Carbon Dioxide BUN Creatinine Glucose POC Glucose 199 H 235 H 155 H Lactic Acid Calcium AST Alkaline Phosphatase CK-MB (CK-2) CK-MB (CK-2) Rel Index Albumin TSH Urine WBC (Auto) Salicylates 01/12/17 01/12/17 01/12/17 05:02 06:56 14:50 WBC RBC Hgb Hct MCV MCH RDW Plt Count Lymph % (Auto) [place] % (Auto) Eos % (Auto) Seg Neutrophils % Seg Neuts % (Manual) Lymphocytes % (Manual) Seg Neutrophils # Seg Neutrophils # Man Lymphocytes # (Manual) APTT POC ABG pH ABG pH POC ABG pCO2 28.0 L POC ABG pO2 178 H ABG pO2 ABG HCO3 ABG Base Excess ABG Hemoglobin VBG pH Oxyhemoglobin Sodium Potassium Chloride Carbon Dioxide BUN Creatinine Glucose POC Glucose 119 H 164 H Lactic Acid Calcium AST Alkaline Phosphatase CK-MB (CK-2) CK-MB (CK-2) Rel Index Albumin TSH Urine WBC (Auto) Salicylates 01/13/17 01/13/17 01/13/17 03:37 03:37 04:26 WBC RBC 3.61 L Hgb 9.3 L Hct 28.0 L MCV 78 L MCH 26 L RDW 18.2 H Plt Count Lymph % (Auto) [place] % (Auto) Eos % (Auto) Seg Neutrophils % Seg Neuts % (Manual) Lymphocytes % (Manual) Seg Neutrophils # Seg Neutrophils # Man Lymphocytes # (Manual) APTT POC ABG pH 7.485 H ABG pH POC ABG pCO2 25.4 L POC ABG pO2 73 L ABG pO2 ABG HCO3 ABG Base Excess ABG Hemoglobin VBG pH Oxyhemoglobin Sodium Potassium Chloride 112.4 H Carbon Dioxide 19 L BUN Creatinine Glucose 118 H POC Glucose Lactic Acid Calcium 8.0 L AST Alkaline Phosphatase CK-MB (CK-2) CK-MB (CK-2) Rel Index Albumin TSH Urine WBC (Auto) Salicylates 01/13/17 01/13/17 01/13/17 06:15 11:50 17:31 WBC RBC Hgb Hct MCV MCH RDW Plt Count Lymph % (Auto) [place] % (Auto) Eos % (Auto) Seg Neutrophils % Seg Neuts % (Manual) Lymphocytes % (Manual) Seg Neutrophils # Seg Neutrophils # Man Lymphocytes # (Manual) APTT POC ABG pH ABG pH POC ABG pCO2 POC ABG pO2 ABG pO2 ABG HCO3 ABG Base Excess ABG Hemoglobin VBG pH Oxyhemoglobin Sodium Potassium Chloride Carbon Dioxide BUN Creatinine Glucose POC Glucose 116 H 171 H 203 H Lactic Acid Calcium AST Alkaline Phosphatase CK-MB (CK-2) CK-MB (CK-2) Rel Index Albumin TSH Urine WBC (Auto) Salicylates 01/14/17 01/14/17 01/14/17 00:02 04:50 04:50 WBC RBC 3.32 L Hgb 8.5 L Hct 26.1 L MCV 79 L MCH 26 L RDW 18.2 H Plt Count Lymph % (Auto) [place] % (Auto) 9.0 H Eos % (Auto) Seg Neutrophils % Seg Neuts % (Manual) Lymphocytes % (Manual) Seg Neutrophils # Seg Neutrophils # Man Lymphocytes # (Manual) APTT POC ABG pH ABG pH POC ABG pCO2 POC ABG pO2 ABG pO2 ABG HCO3 ABG Base Excess ABG Hemoglobin VBG pH Oxyhemoglobin Sodium Potassium Chloride 112.5 H Carbon Dioxide BUN Creatinine Glucose 149 H POC Glucose 157 H Lactic Acid Calcium 8.1 L AST Alkaline Phosphatase CK-MB (CK-2) CK-MB (CK-2) Rel Index Albumin TSH Urine WBC (Auto) Salicylates 01/14/17 01/14/17 01/14/17 05:10 11:27 14:07 WBC RBC Hgb Hct MCV MCH RDW Plt Count Lymph % (Auto) [place] % (Auto) Eos % (Auto) Seg Neutrophils % Seg Neuts % (Manual) Lymphocytes % (Manual) Seg Neutrophils # Seg Neutrophils # Man Lymphocytes # (Manual) APTT POC ABG pH ABG pH POC ABG pCO2 POC ABG pO2 ABG pO2 ABG HCO3 ABG Base Excess ABG Hemoglobin VBG pH Oxyhemoglobin Sodium Potassium Chloride Carbon Dioxide BUN Creatinine Glucose POC Glucose 176 H 147 H Lactic Acid Calcium AST Alkaline Phosphatase CK-MB (CK-2) CK-MB (CK-2) Rel Index Albumin TSH Urine WBC (Auto) 53.0 H Salicylates 01/14/17 01/15/17 01/15/17 16:52 00:04 05:26 WBC RBC Hgb Hct MCV MCH RDW Plt Count Lymph % (Auto) [place] % (Auto) Eos % (Auto) Seg Neutrophils % Seg Neuts % (Manual) Lymphocytes % (Manual) Seg Neutrophils # Seg Neutrophils # Man Lymphocytes # (Manual) APTT POC ABG pH ABG pH POC ABG pCO2 POC ABG pO2 ABG pO2 ABG HCO3 ABG Base Excess ABG Hemoglobin VBG pH Oxyhemoglobin Sodium Potassium Chloride Carbon Dioxide BUN Creatinine Glucose POC Glucose 131 H 193 H 215 H Lactic Acid Calcium AST Alkaline Phosphatase CK-MB (CK-2) CK-MB (CK-2) Rel Index Albumin TSH Urine WBC (Auto) Salicylates 01/15/17 01/15/17 01/15/17 11:49 17:47 21:33 WBC RBC Hgb Hct MCV MCH RDW Plt Count Lymph % (Auto) [place] % (Auto) Eos % (Auto) Seg Neutrophils % Seg Neuts % (Manual) Lymphocytes % (Manual) Seg Neutrophils # Seg Neutrophils # Man Lymphocytes # (Manual) APTT POC ABG pH ABG pH POC ABG pCO2 POC ABG pO2 ABG pO2 ABG HCO3 ABG Base Excess ABG Hemoglobin VBG pH Oxyhemoglobin Sodium Potassium Chloride Carbon Dioxide BUN Creatinine Glucose POC Glucose 121 H 211 H 275 H Lactic Acid Calcium AST Alkaline Phosphatase CK-MB (CK-2) CK-MB (CK-2) Rel Index Albumin TSH Urine WBC (Auto) Salicylates 01/16/17 01/16/17 01/16/17 04:30 05:28 13:45 WBC RBC Hgb Hct MCV MCH RDW Plt Count Lymph % (Auto) [place] % (Auto) Eos % (Auto) Seg Neutrophils % Seg Neuts % (Manual) Lymphocytes % (Manual) Seg Neutrophils # Seg Neutrophils # Man Lymphocytes # (Manual) APTT POC ABG pH ABG pH 7.457 H POC ABG pCO2 POC ABG pO2 ABG pO2 55.1 L ABG HCO3 19.4 L ABG Base Excess -4.0 L ABG Hemoglobin 6.8 L VBG pH Oxyhemoglobin 94.9 L Sodium Potassium Chloride Carbon Dioxide BUN Creatinine Glucose POC Glucose 271 H 236 H Lactic Acid Calcium AST Alkaline Phosphatase CK-MB (CK-2) CK-MB (CK-2) Rel Index Albumin TSH Urine WBC (Auto) Salicylates 01/16/17 01/17/17 01/17/17 21:39 04:10 04:10 WBC 4.4 L RBC 2.98 L Hgb 7.7 L Hct 23.3 L MCV 78 L MCH 26 L RDW 18.1 H Plt Count Lymph % (Auto) [place] % (Auto) Eos % (Auto) Seg Neutrophils % Seg Neuts % (Manual) Lymphocytes % (Manual) Seg Neutrophils # Seg Neutrophils # Man Lymphocytes # (Manual) APTT POC ABG pH ABG pH POC ABG pCO2 POC ABG pO2 ABG pO2 ABG HCO3 ABG Base Excess ABG Hemoglobin VBG pH Oxyhemoglobin Sodium Potassium 3.3 L Chloride 108.7 H Carbon Dioxide 20 L BUN 8 L Creatinine Glucose 202 H POC Glucose 258 H Lactic Acid Calcium 7.6 L AST Alkaline Phosphatase CK-MB (CK-2) CK-MB (CK-2) Rel Index Albumin TSH Urine WBC (Auto) Salicylates 01/17/17 01/17/17 01/17/17 04:35 12:23 16:01 WBC RBC Hgb Hct MCV MCH RDW Plt Count Lymph % (Auto) [place] % (Auto) Eos % (Auto) Seg Neutrophils % Seg Neuts % (Manual) Lymphocytes % (Manual) Seg Neutrophils # Seg Neutrophils # Man Lymphocytes # (Manual) APTT POC ABG pH ABG pH POC ABG pCO2 POC ABG pO2 ABG pO2 160.3 H ABG HCO3 ABG Base Excess -2.3 L ABG Hemoglobin 7.9 L VBG pH Oxyhemoglobin Sodium Potassium Chloride Carbon Dioxide BUN Creatinine Glucose POC Glucose 321 H 239 H Lactic Acid Calcium AST Alkaline Phosphatase CK-MB (CK-2) CK-MB (CK-2) Rel Index Albumin TSH Urine WBC (Auto) Salicylates 01/18/17 01/18/17 01/18/17 05:07 12:09 17:54 WBC RBC Hgb Hct MCV MCH RDW Plt Count Lymph % (Auto) [place] % (Auto) Eos % (Auto) Seg Neutrophils % Seg Neuts % (Manual) Lymphocytes % (Manual) Seg Neutrophils # Seg Neutrophils # Man Lymphocytes # (Manual) APTT POC ABG pH ABG pH POC ABG pCO2 POC ABG pO2 ABG pO2 ABG HCO3 ABG Base Excess ABG Hemoglobin VBG pH Oxyhemoglobin Sodium Potassium Chloride Carbon Dioxide BUN Creatinine Glucose POC Glucose 155 H 203 H 132 H Lactic Acid Calcium AST Alkaline Phosphatase CK-MB (CK-2) CK-MB (CK-2) Rel Index Albumin TSH Urine WBC (Auto) Salicylates 01/18/17 01/19/17 01/19/17 23:43 04:28 12:11 WBC RBC Hgb Hct MCV MCH RDW Plt Count Lymph % (Auto) [place] % (Auto) Eos % (Auto) Seg Neutrophils % Seg Neuts % (Manual) Lymphocytes % (Manual) Seg Neutrophils # Seg Neutrophils # Man Lymphocytes # (Manual) APTT POC ABG pH ABG pH POC ABG pCO2 POC ABG pO2 ABG pO2 ABG HCO3 ABG Base Excess ABG Hemoglobin VBG pH Oxyhemoglobin Sodium Potassium Chloride Carbon Dioxide BUN Creatinine Glucose POC Glucose 125 H 182 H 153 H Lactic Acid Calcium AST Alkaline Phosphatase CK-MB (CK-2) CK-MB (CK-2) Rel Index Albumin TSH Urine WBC (Auto) Salicylates 01/19/17 01/20/17 01/20/17 17:23 00:12 05:44 WBC RBC Hgb Hct MCV MCH RDW Plt Count Lymph % (Auto) [place] % (Auto) Eos % (Auto) Seg Neutrophils % Seg Neuts % (Manual) Lymphocytes % (Manual) Seg Neutrophils # Seg Neutrophils # Man Lymphocytes # (Manual) APTT POC ABG pH ABG pH POC ABG pCO2 POC ABG pO2 ABG pO2 ABG HCO3 ABG Base Excess ABG Hemoglobin VBG pH Oxyhemoglobin Sodium Potassium Chloride Carbon Dioxide BUN Creatinine Glucose POC Glucose 66 L 139 H 176 H Lactic Acid Calcium AST Alkaline Phosphatase CK-MB (CK-2) CK-MB (CK-2) Rel Index Albumin TSH Urine WBC (Auto) Salicylates 01/20/17 01/20/17 01/20/17 11:48 17:42 23:43 WBC RBC Hgb Hct MCV MCH RDW Plt Count Lymph % (Auto) [place] % (Auto) Eos % (Auto) Seg Neutrophils % Seg Neuts % (Manual) Lymphocytes % (Manual) Seg Neutrophils # Seg Neutrophils # Man Lymphocytes # (Manual) APTT POC ABG pH ABG pH POC ABG pCO2 POC ABG pO2 ABG pO2 ABG HCO3 ABG Base Excess ABG Hemoglobin VBG pH Oxyhemoglobin Sodium Potassium Chloride Carbon Dioxide BUN Creatinine Glucose POC Glucose 218 H 132 H 178 H Lactic Acid Calcium AST Alkaline Phosphatase CK-MB (CK-2) CK-MB (CK-2) Rel Index Albumin TSH Urine WBC (Auto) Salicylates 01/21/17 01/21/17 01/21/17 05:34 11:17 23:37 WBC RBC Hgb Hct MCV MCH RDW Plt Count Lymph % (Auto) [place] % (Auto) Eos % (Auto) Seg Neutrophils % Seg Neuts % (Manual) Lymphocytes % (Manual) Seg Neutrophils # Seg Neutrophils # Man Lymphocytes # (Manual) APTT POC ABG pH ABG pH POC ABG pCO2 POC ABG pO2 ABG pO2 ABG HCO3 ABG Base Excess ABG Hemoglobin VBG pH Oxyhemoglobin Sodium Potassium Chloride Carbon Dioxide BUN Creatinine Glucose POC Glucose 106 H 213 H 140 H Lactic Acid Calcium AST Alkaline Phosphatase CK-MB (CK-2) CK-MB (CK-2) Rel Index Albumin TSH Urine WBC (Auto) Salicylates 01/22/17 01/22/17 01/22/17 04:00 04:00 04:58 WBC RBC 3.26 L Hgb 8.3 L Hct 25.5 L MCV 78 L MCH 25 L RDW 17.9 H Plt Count Lymph % (Auto) [place] % (Auto) 7.9 H Eos % (Auto) 6.2 H Seg Neutrophils % Seg Neuts % (Manual) Lymphocytes % (Manual) Seg Neutrophils # Seg Neutrophils # Man Lymphocytes # (Manual) APTT POC ABG pH ABG pH POC ABG pCO2 POC ABG pO2 ABG pO2 ABG HCO3 ABG Base Excess ABG Hemoglobin VBG pH Oxyhemoglobin Sodium Potassium Chloride 95.5 L Carbon Dioxide 31 H D BUN Creatinine Glucose 134 H POC Glucose 146 H Lactic Acid Calcium AST 44 H Alkaline Phosphatase 379 H CK-MB (CK-2) CK-MB (CK-2) Rel Index Albumin 2.7 L TSH Urine WBC (Auto) Salicylates 01/22/17 01/22/17 01/22/17 12:12 18:12 23:39 WBC RBC Hgb Hct MCV MCH RDW Plt Count Lymph % (Auto) [place] % (Auto) Eos % (Auto) Seg Neutrophils % Seg Neuts % (Manual) Lymphocytes % (Manual) Seg Neutrophils # Seg Neutrophils # Man Lymphocytes # (Manual) APTT POC ABG pH ABG pH POC ABG pCO2 POC ABG pO2 ABG pO2 ABG HCO3 ABG Base Excess ABG Hemoglobin VBG pH Oxyhemoglobin Sodium Potassium Chloride Carbon Dioxide BUN Creatinine Glucose POC Glucose 255 H 182 H 134 H Lactic Acid Calcium AST Alkaline Phosphatase CK-MB (CK-2) CK-MB (CK-2) Rel Index Albumin TSH Urine WBC (Auto) Salicylates 01/23/17 01/23/17 01/23/17 04:43 12:12 17:36 WBC RBC Hgb Hct MCV MCH RDW Plt Count Lymph % (Auto) [place] % (Auto) Eos % (Auto) Seg Neutrophils % Seg Neuts % (Manual) Lymphocytes % (Manual) Seg Neutrophils # Seg Neutrophils # Man Lymphocytes # (Manual) APTT POC ABG pH ABG pH POC ABG pCO2 POC ABG pO2 ABG pO2 ABG HCO3 ABG Base Excess ABG Hemoglobin VBG pH Oxyhemoglobin Sodium Potassium Chloride Carbon Dioxide BUN Creatinine Glucose POC Glucose 218 H 128 H 156 H Lactic Acid Calcium AST Alkaline Phosphatase CK-MB (CK-2) CK-MB (CK-2) Rel Index Albumin TSH Urine WBC (Auto) Salicylates 01/24/17 01/24/17 01/24/17 00:08 05:16 11:40 WBC RBC Hgb Hct MCV MCH RDW Plt Count Lymph % (Auto) [place] % (Auto) Eos % (Auto) Seg Neutrophils % Seg Neuts % (Manual) Lymphocytes % (Manual) Seg Neutrophils # Seg Neutrophils # Man Lymphocytes # (Manual) APTT POC ABG pH ABG pH POC ABG pCO2 POC ABG pO2 ABG pO2 ABG HCO3 ABG Base Excess ABG Hemoglobin VBG pH Oxyhemoglobin Sodium Potassium Chloride Carbon Dioxide BUN Creatinine Glucose POC Glucose 129 H 169 H 187 H Lactic Acid Calcium AST Alkaline Phosphatase CK-MB (CK-2) CK-MB (CK-2) Rel Index Albumin TSH Urine WBC (Auto) Salicylates 01/24/17 01/24/17 01/25/17 17:43 23:23 04:56 WBC RBC Hgb Hct MCV MCH RDW Plt Count Lymph % (Auto) [place] % (Auto) Eos % (Auto) Seg Neutrophils % Seg Neuts % (Manual) Lymphocytes % (Manual) Seg Neutrophils # Seg Neutrophils # Man Lymphocytes # (Manual) APTT POC ABG pH ABG pH POC ABG pCO2 POC ABG pO2 ABG pO2 ABG HCO3 ABG Base Excess ABG Hemoglobin VBG pH Oxyhemoglobin Sodium Potassium Chloride Carbon Dioxide BUN Creatinine Glucose POC Glucose 215 H 222 H 210 H Lactic Acid Calcium AST Alkaline Phosphatase CK-MB (CK-2) CK-MB (CK-2) Rel Index Albumin TSH Urine WBC (Auto) Salicylates 01/25/17 01/25/17 01/26/17 11:52 17:37 00:02 WBC RBC Hgb Hct MCV MCH RDW Plt Count Lymph % (Auto) [place] % (Auto) Eos % (Auto) Seg Neutrophils % Seg Neuts % (Manual) Lymphocytes % (Manual) Seg Neutrophils # Seg Neutrophils # Man Lymphocytes # (Manual) APTT POC ABG pH ABG pH POC ABG pCO2 POC ABG pO2 ABG pO2 ABG HCO3 ABG Base Excess ABG Hemoglobin VBG pH Oxyhemoglobin Sodium Potassium Chloride Carbon Dioxide BUN Creatinine Glucose POC Glucose 284 H 218 H 192 H Lactic Acid Calcium AST Alkaline Phosphatase CK-MB (CK-2) CK-MB (CK-2) Rel Index Albumin TSH Urine WBC (Auto) Salicylates 01/26/17 01/26/17 01/26/17 05:33 12:17 17:50 WBC RBC Hgb Hct MCV MCH RDW Plt Count Lymph % (Auto) [place] % (Auto) Eos % (Auto) Seg Neutrophils % Seg Neuts % (Manual) Lymphocytes % (Manual) Seg Neutrophils # Seg Neutrophils # Man Lymphocytes # (Manual) APTT POC ABG pH ABG pH POC ABG pCO2 POC ABG pO2 ABG pO2 ABG HCO3 ABG Base Excess ABG Hemoglobin VBG pH Oxyhemoglobin Sodium Potassium Chloride Carbon Dioxide BUN Creatinine Glucose POC Glucose 199 H 227 H 229 H Lactic Acid Calcium AST Alkaline Phosphatase CK-MB (CK-2) CK-MB (CK-2) Rel Index Albumin TSH Urine WBC (Auto) Salicylates 01/26/17 01/27/17 01/27/17 23:57 05:31 11:42 WBC RBC Hgb Hct MCV MCH RDW Plt Count Lymph % (Auto) [place] % (Auto) Eos % (Auto) Seg Neutrophils % Seg Neuts % (Manual) Lymphocytes % (Manual) Seg Neutrophils # Seg Neutrophils # Man Lymphocytes # (Manual) APTT POC ABG pH ABG pH POC ABG pCO2 POC ABG pO2 ABG pO2 ABG HCO3 ABG Base Excess ABG Hemoglobin VBG pH Oxyhemoglobin Sodium Potassium Chloride Carbon Dioxide BUN Creatinine Glucose POC Glucose 186 H 285 H 260 H Lactic Acid Calcium AST Alkaline Phosphatase CK-MB (CK-2) CK-MB (CK-2) Rel Index Albumin TSH Urine WBC (Auto) Salicylates 01/27/17 01/27/17 01/27/17 17:47 23:58 Unknown WBC 12.1 H RBC 3.28 L Hgb 8.5 L Hct 25.5 L MCV 78 L MCH 26 L RDW 16.8 H Plt Count 601 H Lymph % (Auto) [place] % (Auto) Eos % (Auto) Seg Neutrophils % Seg Neuts % (Manual) Lymphocytes % (Manual) Seg Neutrophils # Seg Neutrophils # Man Lymphocytes # (Manual) APTT POC ABG pH ABG pH POC ABG pCO2 POC ABG pO2 ABG pO2 ABG HCO3 ABG Base Excess ABG Hemoglobin VBG pH Oxyhemoglobin Sodium Potassium Chloride Carbon Dioxide BUN Creatinine Glucose POC Glucose 329 H 225 H Lactic Acid Calcium AST Alkaline Phosphatase CK-MB (CK-2) CK-MB (CK-2) Rel Index Albumin TSH Urine WBC (Auto) Salicylates 01/27/17 01/28/17 01/28/17 Unknown 03:44 03:44 WBC RBC 3.14 L Hgb 8.2 L Hct 24.1 L MCV 77 L MCH 26 L RDW 16.9 H Plt Count 567 H Lymph % (Auto) [place] % (Auto) Eos % (Auto) Seg Neutrophils % Seg Neuts % (Manual) Lymphocytes % (Manual) Seg Neutrophils # Seg Neutrophils # Man Lymphocytes # (Manual) APTT POC ABG pH ABG pH POC ABG pCO2 POC ABG pO2 ABG pO2 ABG HCO3 ABG Base Excess ABG Hemoglobin VBG pH Oxyhemoglobin Sodium 128 L Potassium 5.4 H Chloride 87.5 L Carbon Dioxide BUN 44 H 42 H Creatinine Glucose 250 H 128 H POC Glucose Lactic Acid Calcium AST Alkaline Phosphatase CK-MB (CK-2) CK-MB (CK-2) Rel Index Albumin TSH Urine WBC (Auto) Salicylates 01/28/17 01/28/17 01/28/17 11:43 16:47 17:52 WBC RBC Hgb Hct MCV MCH RDW Plt Count Lymph % (Auto) [place] % (Auto) Eos % (Auto) Seg Neutrophils % Seg Neuts % (Manual) Lymphocytes % (Manual) Seg Neutrophils # Seg Neutrophils # Man Lymphocytes # (Manual) APTT POC ABG pH ABG pH POC ABG pCO2 POC ABG pO2 ABG pO2 ABG HCO3 ABG Base Excess ABG Hemoglobin VBG pH Oxyhemoglobin Sodium Potassium Chloride Carbon Dioxide BUN Creatinine Glucose POC Glucose 351 H 249 H Lactic Acid Calcium AST Alkaline Phosphatase CK-MB (CK-2) CK-MB (CK-2) Rel Index Albumin TSH Urine WBC (Auto) > 182.0 H Salicylates 01/29/17 01/29/17 01/29/17 05:25 05:25 09:32 WBC 13.6 H RBC 3.25 L Hgb 8.3 L Hct 25.1 L MCV 77 L MCH 26 L RDW 16.8 H Plt Count 514 H Lymph % (Auto) [place] % (Auto) Eos % (Auto) Seg Neutrophils % Seg Neuts % (Manual) Lymphocytes % (Manual) Seg Neutrophils # Seg Neutrophils # Man Lymphocytes # (Manual) APTT POC ABG pH ABG pH POC ABG pCO2 POC ABG pO2 ABG pO2 ABG HCO3 ABG Base Excess ABG Hemoglobin VBG pH Oxyhemoglobin Sodium Potassium Chloride 97.8 L Carbon Dioxide BUN 34 H Creatinine Glucose 222 H POC Glucose Lactic Acid 2.50 H* Calcium AST Alkaline Phosphatase CK-MB (CK-2) CK-MB (CK-2) Rel Index Albumin TSH Urine WBC (Auto) Salicylates 01/29/17 01/29/17 01/29/17 11:56 18:11 23:55 WBC RBC Hgb Hct MCV MCH RDW Plt Count Lymph % (Auto) [place] % (Auto) Eos % (Auto) Seg Neutrophils % Seg Neuts % (Manual) Lymphocytes % (Manual) Seg Neutrophils # Seg Neutrophils # Man Lymphocytes # (Manual) APTT POC ABG pH ABG pH POC ABG pCO2 POC ABG pO2 ABG pO2 ABG HCO3 ABG Base Excess ABG Hemoglobin VBG pH Oxyhemoglobin Sodium Potassium Chloride Carbon Dioxide BUN Creatinine Glucose POC Glucose 261 H 215 H 176 H Lactic Acid Calcium AST Alkaline Phosphatase CK-MB (CK-2) CK-MB (CK-2) Rel Index Albumin TSH Urine WBC (Auto) Salicylates 01/30/17 01/30/17 01/30/17 05:31 05:31 05:34 WBC 15.2 H RBC 3.09 L Hgb 7.9 L Hct 23.9 L MCV 77 L MCH 26 L RDW 16.9 H Plt Count 569 H Lymph % (Auto) [place] % (Auto) Eos % (Auto) Seg Neutrophils % Seg Neuts % (Manual) Lymphocytes % (Manual) Seg Neutrophils # Seg Neutrophils # Man Lymphocytes # (Manual) APTT POC ABG pH ABG pH POC ABG pCO2 POC ABG pO2 ABG pO2 ABG HCO3 ABG Base Excess ABG Hemoglobin VBG pH Oxyhemoglobin Sodium Potassium Chloride Carbon Dioxide BUN 24 H Creatinine Glucose 235 H POC Glucose 243 H Lactic Acid Calcium AST Alkaline Phosphatase CK-MB (CK-2) CK-MB (CK-2) Rel Index Albumin TSH Urine WBC (Auto) Salicylates 01/30/17 01/30/17 01/30/17 11:38 17:58 23:29 WBC RBC Hgb Hct MCV MCH RDW Plt Count Lymph % (Auto) [place] % (Auto) Eos % (Auto) Seg Neutrophils % Seg Neuts % (Manual) Lymphocytes % (Manual) Seg Neutrophils # Seg Neutrophils # Man Lymphocytes # (Manual) APTT POC ABG pH ABG pH POC ABG pCO2 POC ABG pO2 ABG pO2 ABG HCO3 ABG Base Excess ABG Hemoglobin VBG pH Oxyhemoglobin Sodium Potassium Chloride Carbon Dioxide BUN Creatinine Glucose POC Glucose 298 H 208 H 245 H Lactic Acid Calcium AST Alkaline Phosphatase CK-MB (CK-2) CK-MB (CK-2) Rel Index Albumin TSH Urine WBC (Auto) Salicylates 01/31/17 01/31/17 01/31/17 04:39 04:39 05:57 WBC 11.4 H RBC 3.22 L Hgb 8.2 L Hct 24.9 L MCV 78 L MCH 25 L RDW 17.2 H Plt Count 576 H Lymph % (Auto) [place] % (Auto) Eos % (Auto) Seg Neutrophils % Seg Neuts % (Manual) Lymphocytes % (Manual) Seg Neutrophils # Seg Neutrophils # Man Lymphocytes # (Manual) APTT POC ABG pH ABG pH POC ABG pCO2 POC ABG pO2 ABG pO2 ABG HCO3 ABG Base Excess ABG Hemoglobin VBG pH Oxyhemoglobin Sodium Potassium Chloride Carbon Dioxide BUN Creatinine 0.7 L Glucose 223 H POC Glucose 264 H Lactic Acid Calcium AST Alkaline Phosphatase CK-MB (CK-2) CK-MB (CK-2) Rel Index Albumin TSH Urine WBC (Auto) Salicylates 01/31/17 01/31/17 01/31/17 12:23 17:41 18:55 WBC RBC Hgb Hct MCV MCH RDW Plt Count Lymph % (Auto) [place] % (Auto) Eos % (Auto) Seg Neutrophils % Seg Neuts % (Manual) Lymphocytes % (Manual) Seg Neutrophils # Seg Neutrophils # Man Lymphocytes # (Manual) APTT POC ABG pH ABG pH POC ABG pCO2 32.8 L POC ABG pO2 ABG pO2 ABG HCO3 ABG Base Excess ABG Hemoglobin VBG pH Oxyhemoglobin Sodium Potassium Chloride Carbon Dioxide BUN Creatinine Glucose POC Glucose 252 H 208 H Lactic Acid Calcium AST Alkaline Phosphatase CK-MB (CK-2) CK-MB (CK-2) Rel Index Albumin TSH Urine WBC (Auto) Salicylates 01/31/17 02/01/17 02/01/17 22:59 03:38 03:38 WBC RBC 2.81 L Hgb 7.4 L Hct 22.1 L MCV 79 L MCH 27 L RDW 17.0 H Plt Count 540 H Lymph % (Auto) [place] % (Auto) Eos % (Auto) Seg Neutrophils % Seg Neuts % (Manual) Lymphocytes % (Manual) Seg Neutrophils # Seg Neutrophils # Man Lymphocytes # (Manual) APTT POC ABG pH ABG pH POC ABG pCO2 POC ABG pO2 ABG pO2 ABG HCO3 ABG Base Excess ABG Hemoglobin VBG pH Oxyhemoglobin Sodium Potassium Chloride Carbon Dioxide 21 L BUN Creatinine 0.7 L Glucose POC Glucose 40 L Lactic Acid Calcium AST Alkaline Phosphatase CK-MB (CK-2) CK-MB (CK-2) Rel Index Albumin TSH Urine WBC (Auto) Salicylates 02/01/17 02/01/17 02/01/17 05:17 12:19 16:44 WBC RBC Hgb Hct MCV MCH RDW Plt Count Lymph % (Auto) [place] % (Auto) Eos % (Auto) Seg Neutrophils % Seg Neuts % (Manual) Lymphocytes % (Manual) Seg Neutrophils # Seg Neutrophils # Man Lymphocytes # (Manual) APTT POC ABG pH ABG pH POC ABG pCO2 POC ABG pO2 ABG pO2 ABG HCO3 ABG Base Excess ABG Hemoglobin VBG pH Oxyhemoglobin Sodium Potassium Chloride Carbon Dioxide BUN Creatinine Glucose POC Glucose 140 H 213 H 172 H Lactic Acid Calcium AST Alkaline Phosphatase CK-MB (CK-2) CK-MB (CK-2) Rel Index Albumin TSH Urine WBC (Auto) Salicylates 02/01/17 02/02/17 02/02/17 23:59 05:14 11:24 WBC RBC Hgb Hct MCV MCH RDW Plt Count Lymph % (Auto) [place] % (Auto) Eos % (Auto) Seg Neutrophils % Seg Neuts % (Manual) Lymphocytes % (Manual) Seg Neutrophils # Seg Neutrophils # Man Lymphocytes # (Manual) APTT POC ABG pH ABG pH POC ABG pCO2 POC ABG pO2 ABG pO2 ABG HCO3 ABG Base Excess ABG Hemoglobin VBG pH Oxyhemoglobin Sodium Potassium Chloride Carbon Dioxide BUN Creatinine Glucose POC Glucose 181 H 194 H 209 H Lactic Acid Calcium AST Alkaline Phosphatase CK-MB (CK-2) CK-MB (CK-2) Rel Index Albumin TSH Urine WBC (Auto) Salicylates 02/02/17 02/02/17 02/02/17 11:46 11:46 17:47 WBC RBC 2.94 L Hgb 7.5 L Hct 23.0 L MCV 78 L MCH 25 L RDW 16.9 H Plt Count 520 H Lymph % (Auto) [place] % (Auto) Eos % (Auto) Seg Neutrophils % Seg Neuts % (Manual) Lymphocytes % (Manual) Seg Neutrophils # Seg Neutrophils # Man Lymphocytes # (Manual) APTT POC ABG pH ABG pH POC ABG pCO2 POC ABG pO2 ABG pO2 ABG HCO3 ABG Base Excess ABG Hemoglobin VBG pH Oxyhemoglobin Sodium Potassium Chloride Carbon Dioxide BUN Creatinine 0.6 L Glucose 189 H POC Glucose 147 H Lactic Acid Calcium 8.1 L AST Alkaline Phosphatase CK-MB (CK-2) CK-MB (CK-2) Rel Index Albumin TSH Urine WBC (Auto) Salicylates 02/02/17 02/03/17 02/03/17 23:32 05:53 11:19 WBC RBC Hgb Hct MCV MCH RDW Plt Count Lymph % (Auto) [place] % (Auto) Eos % (Auto) Seg Neutrophils % Seg Neuts % (Manual) Lymphocytes % (Manual) Seg Neutrophils # Seg Neutrophils # Man Lymphocytes # (Manual) APTT POC ABG pH ABG pH POC ABG pCO2 POC ABG pO2 ABG pO2 ABG HCO3 ABG Base Excess ABG Hemoglobin VBG pH Oxyhemoglobin Sodium Potassium Chloride Carbon Dioxide BUN Creatinine Glucose POC Glucose 176 H 224 H 228 H Lactic Acid Calcium AST Alkaline Phosphatase CK-MB (CK-2) CK-MB (CK-2) Rel Index Albumin TSH Urine WBC (Auto) Salicylates 02/03/17 02/03/17 02/04/17 16:59 23:38 05:45 WBC RBC Hgb Hct MCV MCH RDW Plt Count Lymph % (Auto) [place] % (Auto) Eos % (Auto) Seg Neutrophils % Seg Neuts % (Manual) Lymphocytes % (Manual) Seg Neutrophils # Seg Neutrophils # Man Lymphocytes # (Manual) APTT POC ABG pH ABG pH POC ABG pCO2 POC ABG pO2 ABG pO2 ABG HCO3 ABG Base Excess ABG Hemoglobin VBG pH Oxyhemoglobin Sodium Potassium Chloride Carbon Dioxide BUN Creatinine Glucose POC Glucose 189 H 191 H 251 H Lactic Acid Calcium AST Alkaline Phosphatase CK-MB (CK-2) CK-MB (CK-2) Rel Index Albumin TSH Urine WBC (Auto) Salicylates 02/04/17 02/04/17 02/05/17 11:20 17:20 00:17 WBC RBC Hgb Hct MCV MCH RDW Plt Count Lymph % (Auto) [place] % (Auto) Eos % (Auto) Seg Neutrophils % Seg Neuts % (Manual) Lymphocytes % (Manual) Seg Neutrophils # Seg Neutrophils # Man Lymphocytes # (Manual) APTT POC ABG pH ABG pH POC ABG pCO2 POC ABG pO2 ABG pO2 ABG HCO3 ABG Base Excess ABG Hemoglobin VBG pH Oxyhemoglobin Sodium Potassium Chloride Carbon Dioxide BUN Creatinine Glucose POC Glucose 243 H 163 H 200 H Lactic Acid Calcium AST Alkaline Phosphatase CK-MB (CK-2) CK-MB (CK-2) Rel Index Albumin TSH Urine WBC (Auto) Salicylates 02/05/17 02/05/17 02/05/17 05:38 12:38 16:29 WBC RBC Hgb Hct MCV MCH RDW Plt Count Lymph % (Auto) [place] % (Auto) Eos % (Auto) Seg Neutrophils % Seg Neuts % (Manual) Lymphocytes % (Manual) Seg Neutrophils # Seg Neutrophils # Man Lymphocytes # (Manual) APTT POC ABG pH ABG pH POC ABG pCO2 POC ABG pO2 ABG pO2 ABG HCO3 ABG Base Excess ABG Hemoglobin VBG pH Oxyhemoglobin Sodium Potassium Chloride Carbon Dioxide BUN Creatinine Glucose POC Glucose 248 H 241 H 257 H Lactic Acid Calcium AST Alkaline Phosphatase CK-MB (CK-2) CK-MB (CK-2) Rel Index Albumin TSH Urine WBC (Auto) Salicylates 02/05/17 02/06/17 02/06/17 23:56 05:30 11:50 WBC RBC Hgb Hct MCV MCH RDW Plt Count Lymph % (Auto) [place] % (Auto) Eos % (Auto) Seg Neutrophils % Seg Neuts % (Manual) Lymphocytes % (Manual) Seg Neutrophils # Seg Neutrophils # Man Lymphocytes # (Manual) APTT POC ABG pH ABG pH POC ABG pCO2 POC ABG pO2 ABG pO2 ABG HCO3 ABG Base Excess ABG Hemoglobin VBG pH Oxyhemoglobin Sodium Potassium Chloride Carbon Dioxide BUN Creatinine Glucose POC Glucose 258 H 120 H 254 H Lactic Acid Calcium AST Alkaline Phosphatase CK-MB (CK-2) CK-MB (CK-2) Rel Index Albumin TSH Urine WBC (Auto) Salicylates 02/06/17 02/06/17 02/07/17 17:11 23:50 05:22 WBC RBC Hgb Hct MCV MCH RDW Plt Count Lymph % (Auto) [place] % (Auto) Eos % (Auto) Seg Neutrophils % Seg Neuts % (Manual) Lymphocytes % (Manual) Seg Neutrophils # Seg Neutrophils # Man Lymphocytes # (Manual) APTT POC ABG pH ABG pH POC ABG pCO2 POC ABG pO2 ABG pO2 ABG HCO3 ABG Base Excess ABG Hemoglobin VBG pH Oxyhemoglobin Sodium Potassium Chloride Carbon Dioxide BUN Creatinine Glucose POC Glucose 149 H 240 H 258 H Lactic Acid Calcium AST Alkaline Phosphatase CK-MB (CK-2) CK-MB (CK-2) Rel Index Albumin TSH Urine WBC (Auto) Salicylates 02/07/17 02/07/17 02/07/17 11:15 18:33 23:59 WBC RBC Hgb Hct MCV MCH RDW Plt Count Lymph % (Auto) [place] % (Auto) Eos % (Auto) Seg Neutrophils % Seg Neuts % (Manual) Lymphocytes % (Manual) Seg Neutrophils # Seg Neutrophils # Man Lymphocytes # (Manual) APTT POC ABG pH ABG pH POC ABG pCO2 POC ABG pO2 ABG pO2 ABG HCO3 ABG Base Excess ABG Hemoglobin VBG pH Oxyhemoglobin Sodium Potassium Chloride Carbon Dioxide BUN Creatinine Glucose POC Glucose 239 H 176 H 186 H Lactic Acid Calcium AST Alkaline Phosphatase CK-MB (CK-2) CK-MB (CK-2) Rel Index Albumin TSH Urine WBC (Auto) Salicylates 02/08/17 02/08/17 02/08/17 06:15 11:55 16:55 WBC RBC Hgb Hct MCV MCH RDW Plt Count Lymph % (Auto) [place] % (Auto) Eos % (Auto) Seg Neutrophils % Seg Neuts % (Manual) Lymphocytes % (Manual) Seg Neutrophils # Seg Neutrophils # Man Lymphocytes # (Manual) APTT POC ABG pH ABG pH POC ABG pCO2 POC ABG pO2 ABG pO2 ABG HCO3 ABG Base Excess ABG Hemoglobin VBG pH Oxyhemoglobin Sodium Potassium Chloride Carbon Dioxide BUN Creatinine Glucose POC Glucose 195 H 129 H 246 H Lactic Acid Calcium AST Alkaline Phosphatase CK-MB (CK-2) CK-MB (CK-2) Rel Index Albumin TSH Urine WBC (Auto) Salicylates 02/08/17 02/09/17 02/09/17 23:51 05:51 07:24 WBC 14.7 H RBC 3.39 L Hgb 8.9 L Hct 26.4 L MCV 78 L MCH 26 L RDW 18.4 H Plt Count 670 H Lymph % (Auto) 11.8 L [place] % (Auto) Eos % (Auto) Seg Neutrophils % 81.2 H Seg Neuts % (Manual) Lymphocytes % (Manual) Seg Neutrophils # 11.9 H Seg Neutrophils # Man Lymphocytes # (Manual) APTT POC ABG pH ABG pH POC ABG pCO2 POC ABG pO2 ABG pO2 ABG HCO3 ABG Base Excess ABG Hemoglobin VBG pH Oxyhemoglobin Sodium Potassium Chloride Carbon Dioxide BUN Creatinine Glucose POC Glucose 262 H 295 H Lactic Acid Calcium AST Alkaline Phosphatase CK-MB (CK-2) CK-MB (CK-2) Rel Index Albumin TSH Urine WBC (Auto) Salicylates 02/09/17 02/09/17 02/09/17 07:24 12:08 18:39 WBC RBC Hgb Hct MCV MCH RDW Plt Count Lymph % (Auto) [place] % (Auto) Eos % (Auto) Seg Neutrophils % Seg Neuts % (Manual) Lymphocytes % (Manual) Seg Neutrophils # Seg Neutrophils # Man Lymphocytes # (Manual) APTT POC ABG pH ABG pH POC ABG pCO2 POC ABG pO2 ABG pO2 ABG HCO3 ABG Base Excess ABG Hemoglobin VBG pH Oxyhemoglobin Sodium Potassium Chloride 95.5 L Carbon Dioxide BUN 52 H Creatinine Glucose 277 H POC Glucose 236 H 151 H Lactic Acid Calcium AST Alkaline Phosphatase CK-MB (CK-2) CK-MB (CK-2) Rel Index Albumin TSH Urine WBC (Auto) Salicylates 02/10/17 02/10/17 02/10/17 00:01 05:44 11:21 WBC RBC Hgb Hct MCV MCH RDW Plt Count Lymph % (Auto) [place] % (Auto) Eos % (Auto) Seg Neutrophils % Seg Neuts % (Manual) Lymphocytes % (Manual) Seg Neutrophils # Seg Neutrophils # Man Lymphocytes # (Manual) APTT POC ABG pH ABG pH POC ABG pCO2 POC ABG pO2 ABG pO2 ABG HCO3 ABG Base Excess ABG Hemoglobin VBG pH Oxyhemoglobin Sodium Potassium Chloride Carbon Dioxide BUN Creatinine Glucose POC Glucose 210 H 201 H 233 H Lactic Acid Calcium AST Alkaline Phosphatase CK-MB (CK-2) CK-MB (CK-2) Rel Index Albumin TSH Urine WBC (Auto) Salicylates 02/10/17 02/10/17 02/11/17 17:29 23:56 05:24 WBC RBC Hgb Hct MCV MCH RDW Plt Count Lymph % (Auto) [place] % (Auto) Eos % (Auto) Seg Neutrophils % Seg Neuts % (Manual) Lymphocytes % (Manual) Seg Neutrophils # Seg Neutrophils # Man Lymphocytes # (Manual) APTT POC ABG pH ABG pH POC ABG pCO2 POC ABG pO2 ABG pO2 ABG HCO3 ABG Base Excess ABG Hemoglobin VBG pH Oxyhemoglobin Sodium Potassium Chloride Carbon Dioxide BUN Creatinine Glucose POC Glucose 167 H 191 H 135 H Lactic Acid Calcium AST Alkaline Phosphatase CK-MB (CK-2) CK-MB (CK-2) Rel Index Albumin TSH Urine WBC (Auto) Salicylates 02/11/17 02/11/17 02/11/17 12:25 17:03 23:59 WBC RBC Hgb Hct MCV MCH RDW Plt Count Lymph % (Auto) [place] % (Auto) Eos % (Auto) Seg Neutrophils % Seg Neuts % (Manual) Lymphocytes % (Manual) Seg Neutrophils # Seg Neutrophils # Man Lymphocytes # (Manual) APTT POC ABG pH ABG pH POC ABG pCO2 POC ABG pO2 ABG pO2 ABG HCO3 ABG Base Excess ABG Hemoglobin VBG pH Oxyhemoglobin Sodium Potassium Chloride Carbon Dioxide BUN Creatinine Glucose POC Glucose 275 H 172 H 215 H Lactic Acid Calcium AST Alkaline Phosphatase CK-MB (CK-2) CK-MB (CK-2) Rel Index Albumin TSH Urine WBC (Auto) Salicylates 02/12/17 02/12/17 02/12/17 05:39 11:33 17:55 WBC RBC Hgb Hct MCV MCH RDW Plt Count Lymph % (Auto) [place] % (Auto) Eos % (Auto) Seg Neutrophils % Seg Neuts % (Manual) Lymphocytes % (Manual) Seg Neutrophils # Seg Neutrophils # Man Lymphocytes # (Manual) APTT POC ABG pH ABG pH POC ABG pCO2 POC ABG pO2 ABG pO2 ABG HCO3 ABG Base Excess ABG Hemoglobin VBG pH Oxyhemoglobin Sodium Potassium Chloride Carbon Dioxide BUN Creatinine Glucose POC Glucose 261 H 217 H 172 H Lactic Acid Calcium AST Alkaline Phosphatase CK-MB (CK-2) CK-MB (CK-2) Rel Index Albumin TSH Urine WBC (Auto) Salicylates 02/13/17 02/13/17 02/13/17 00:25 06:46 11:26 WBC RBC Hgb Hct MCV MCH RDW Plt Count Lymph % (Auto) [place] % (Auto) Eos % (Auto) Seg Neutrophils % Seg Neuts % (Manual) Lymphocytes % (Manual) Seg Neutrophils # Seg Neutrophils # Man Lymphocytes # (Manual) APTT POC ABG pH ABG pH POC ABG pCO2 POC ABG pO2 ABG pO2 ABG HCO3 ABG Base Excess ABG Hemoglobin VBG pH Oxyhemoglobin Sodium Potassium Chloride Carbon Dioxide BUN Creatinine Glucose POC Glucose 207 H 219 H 231 H Lactic Acid Calcium AST Alkaline Phosphatase CK-MB (CK-2) CK-MB (CK-2) Rel Index Albumin TSH Urine WBC (Auto) Salicylates 11/08/2502/13/17 02/14/17 17:12 23:44 05:44 WBC RBC Hgb Hct MCV MCH RDW Plt Count Lymph % (Auto) [place] % (Auto) Eos % (Auto) Seg Neutrophils % Seg Neuts % (Manual) Lymphocytes % (Manual) Seg Neutrophils # Seg Neutrophils # Man Lymphocytes # (Manual) APTT POC ABG pH ABG pH POC ABG pCO2 POC ABG pO2 ABG pO2 ABG HCO3 ABG Base Excess ABG Hemoglobin VBG pH Oxyhemoglobin Sodium Potassium Chloride Carbon Dioxide BUN Creatinine Glucose POC Glucose 190 H 256 H 184 H Lactic Acid Calcium AST Alkaline Phosphatase CK-MB (CK-2) CK-MB (CK-2) Rel Index Albumin TSH Urine WBC (Auto) Salicylates 02/14/17 02/14/17 02/14/17 12:21 17:57 23:18 WBC RBC Hgb Hct MCV MCH RDW Plt Count Lymph % (Auto) [place] % (Auto) Eos % (Auto) Seg Neutrophils % Seg Neuts % (Manual) Lymphocytes % (Manual) Seg Neutrophils # Seg Neutrophils # Man Lymphocytes # (Manual) APTT POC ABG pH ABG pH POC ABG pCO2 POC ABG pO2 ABG pO2 ABG HCO3 ABG Base Excess ABG Hemoglobin VBG pH Oxyhemoglobin Sodium Potassium Chloride Carbon Dioxide BUN Creatinine Glucose POC Glucose 233 H 155 H 165 H Lactic Acid Calcium AST Alkaline Phosphatase CK-MB (CK-2) CK-MB (CK-2) Rel Index Albumin TSH Urine WBC (Auto) Salicylates 02/15/17 02/15/17 02/15/17 05:33 11:45 17:20 WBC RBC Hgb Hct MCV MCH RDW Plt Count Lymph % (Auto) [place] % (Auto) Eos % (Auto) Seg Neutrophils % Seg Neuts % (Manual) Lymphocytes % (Manual) Seg Neutrophils # Seg Neutrophils # Man Lymphocytes # (Manual) APTT POC ABG pH ABG pH POC ABG pCO2 POC ABG pO2 ABG pO2 ABG HCO3 ABG Base Excess ABG Hemoglobin VBG pH Oxyhemoglobin Sodium Potassium Chloride Carbon Dioxide BUN Creatinine Glucose POC Glucose 239 H 130 H 189 H Lactic Acid Calcium AST Alkaline Phosphatase CK-MB (CK-2) CK-MB (CK-2) Rel Index Albumin TSH Urine WBC (Auto) Salicylates 02/16/17 02/16/17 02/16/17 00:14 05:09 12:31 WBC RBC Hgb Hct MCV MCH RDW Plt Count Lymph % (Auto) [place] % (Auto) Eos % (Auto) Seg Neutrophils % Seg Neuts % (Manual) Lymphocytes % (Manual) Seg Neutrophils # Seg Neutrophils # Man Lymphocytes # (Manual) APTT POC ABG pH ABG pH POC ABG pCO2 POC ABG pO2 ABG pO2 ABG HCO3 ABG Base Excess ABG Hemoglobin VBG pH Oxyhemoglobin Sodium Potassium Chloride Carbon Dioxide BUN Creatinine Glucose POC Glucose 197 H 226 H 178 H Lactic Acid Calcium AST Alkaline Phosphatase CK-MB (CK-2) CK-MB (CK-2) Rel Index Albumin TSH Urine WBC (Auto) Salicylates 02/16/17 02/16/17 02/17/17 16:35 23:49 05:37 WBC RBC Hgb Hct MCV MCH RDW Plt Count Lymph % (Auto) [place] % (Auto) Eos % (Auto) Seg Neutrophils % Seg Neuts % (Manual) Lymphocytes % (Manual) Seg Neutrophils # Seg Neutrophils # Man Lymphocytes # (Manual) APTT POC ABG pH ABG pH POC ABG pCO2 POC ABG pO2 ABG pO2 ABG HCO3 ABG Base Excess ABG Hemoglobin VBG pH Oxyhemoglobin Sodium Potassium Chloride Carbon Dioxide BUN Creatinine Glucose POC Glucose 174 H 62 L 153 H Lactic Acid Calcium AST Alkaline Phosphatase CK-MB (CK-2) CK-MB (CK-2) Rel Index Albumin TSH Urine WBC (Auto) Salicylates 02/17/17 02/17/17 02/17/17 11:39 17:02 22:24 WBC RBC Hgb Hct MCV MCH RDW Plt Count Lymph % (Auto) [place] % (Auto) Eos % (Auto) Seg Neutrophils % Seg Neuts % (Manual) Lymphocytes % (Manual) Seg Neutrophils # Seg Neutrophils # Man Lymphocytes # (Manual) APTT POC ABG pH ABG pH POC ABG pCO2 POC ABG pO2 ABG pO2 ABG HCO3 ABG Base Excess ABG Hemoglobin VBG pH Oxyhemoglobin Sodium Potassium Chloride Carbon Dioxide BUN Creatinine Glucose POC Glucose 231 H 112 H 116 H Lactic Acid Calcium AST Alkaline Phosphatase CK-MB (CK-2) CK-MB (CK-2) Rel Index Albumin TSH Urine WBC (Auto) Salicylates 02/18/17 02/19/17 02/19/17 15:34 05:09 07:57 WBC RBC Hgb Hct MCV MCH RDW Plt Count Lymph % (Auto) [place] % (Auto) Eos % (Auto) Seg Neutrophils % Seg Neuts % (Manual) Lymphocytes % (Manual) Seg Neutrophils # Seg Neutrophils # Man Lymphocytes # (Manual) APTT POC ABG pH ABG pH POC ABG pCO2 POC ABG pO2 ABG pO2 ABG HCO3 ABG Base Excess ABG Hemoglobin VBG pH Oxyhemoglobin Sodium Potassium Chloride Carbon Dioxide BUN Creatinine Glucose POC Glucose 215 H 218 H 283 H Lactic Acid Calcium AST Alkaline Phosphatase CK-MB (CK-2) CK-MB (CK-2) Rel Index Albumin TSH Urine WBC (Auto) Salicylates 02/19/17 02/19/17 02/20/17 14:49 22:10 05:10 WBC RBC Hgb Hct MCV MCH RDW Plt Count Lymph % (Auto) [place] % (Auto) Eos % (Auto) Seg Neutrophils % Seg Neuts % (Manual) Lymphocytes % (Manual) Seg Neutrophils # Seg Neutrophils # Man Lymphocytes # (Manual) APTT POC ABG pH ABG pH POC ABG pCO2 POC ABG pO2 ABG pO2 ABG HCO3 ABG Base Excess ABG Hemoglobin VBG pH Oxyhemoglobin Sodium Potassium Chloride Carbon Dioxide BUN Creatinine Glucose POC Glucose 290 H 169 H 209 H Lactic Acid Calcium AST Alkaline Phosphatase CK-MB (CK-2) CK-MB (CK-2) Rel Index Albumin TSH Urine WBC (Auto) Salicylates 02/20/17 02/20/17 02/21/17 15:05 21:52 02:00 WBC RBC Hgb Hct MCV MCH RDW Plt Count Lymph % (Auto) [place] % (Auto) Eos % (Auto) Seg Neutrophils % Seg Neuts % (Manual) Lymphocytes % (Manual) Seg Neutrophils # Seg Neutrophils # Man Lymphocytes # (Manual) APTT POC ABG pH ABG pH POC ABG pCO2 POC ABG pO2 ABG pO2 ABG HCO3 ABG Base Excess ABG Hemoglobin VBG pH Oxyhemoglobin Sodium Potassium Chloride Carbon Dioxide BUN Creatinine Glucose POC Glucose 172 H 209 H 216 H Lactic Acid Calcium AST Alkaline Phosphatase CK-MB (CK-2) CK-MB (CK-2) Rel Index Albumin TSH Urine WBC (Auto) Salicylates 02/21/17 02/21/17 02/21/17 04:54 14:43 17:47 WBC RBC Hgb Hct MCV MCH RDW Plt Count Lymph % (Auto) [place] % (Auto) Eos % (Auto) Seg Neutrophils % Seg Neuts % (Manual) Lymphocytes % (Manual) Seg Neutrophils # Seg Neutrophils # Man Lymphocytes # (Manual) APTT POC ABG pH ABG pH POC ABG pCO2 POC ABG pO2 ABG pO2 ABG HCO3 ABG Base Excess ABG Hemoglobin VBG pH Oxyhemoglobin Sodium Potassium Chloride Carbon Dioxide BUN Creatinine Glucose POC Glucose 227 H 290 H 220 H Lactic Acid Calcium AST Alkaline Phosphatase CK-MB (CK-2) CK-MB (CK-2) Rel Index Albumin TSH Urine WBC (Auto) Salicylates 02/21/17 02/22/17 02/22/17 22:02 04:52 15:25 WBC RBC Hgb Hct MCV MCH RDW Plt Count Lymph % (Auto) [place] % (Auto) Eos % (Auto) Seg Neutrophils % Seg Neuts % (Manual) Lymphocytes % (Manual) Seg Neutrophils # Seg Neutrophils # Man Lymphocytes # (Manual) APTT POC ABG pH ABG pH POC ABG pCO2 POC ABG pO2 ABG pO2 ABG HCO3 ABG Base Excess ABG Hemoglobin VBG pH Oxyhemoglobin Sodium Potassium Chloride Carbon Dioxide BUN Creatinine Glucose POC Glucose 246 H 212 H 236 H Lactic Acid Calcium AST Alkaline Phosphatase CK-MB (CK-2) CK-MB (CK-2) Rel Index Albumin TSH Urine WBC (Auto) Salicylates 02/22/17 02/23/17 02/23/17 21:33 06:04 10:00 WBC RBC Hgb Hct MCV MCH RDW Plt Count Lymph % (Auto) [place] % (Auto) Eos % (Auto) Seg Neutrophils % Seg Neuts % (Manual) Lymphocytes % (Manual) Seg Neutrophils # Seg Neutrophils # Man Lymphocytes # (Manual) APTT POC ABG pH ABG pH POC ABG pCO2 POC ABG pO2 ABG pO2 ABG HCO3 ABG Base Excess ABG Hemoglobin VBG pH Oxyhemoglobin Sodium Potassium Chloride Carbon Dioxide BUN Creatinine Glucose POC Glucose 255 H 208 H 174 H Lactic Acid Calcium AST Alkaline Phosphatase CK-MB (CK-2) CK-MB (CK-2) Rel Index Albumin TSH Urine WBC (Auto) Salicylates 02/23/17 02/23/17 02/23/17 12:52 17:15 21:51 WBC RBC Hgb Hct MCV MCH RDW Plt Count Lymph % (Auto) [place] % (Auto) Eos % (Auto) Seg Neutrophils % Seg Neuts % (Manual) Lymphocytes % (Manual) Seg Neutrophils # Seg Neutrophils # Man Lymphocytes # (Manual) APTT POC ABG pH ABG pH POC ABG pCO2 POC ABG pO2 ABG pO2 ABG HCO3 ABG Base Excess ABG Hemoglobin VBG pH Oxyhemoglobin Sodium Potassium Chloride Carbon Dioxide BUN Creatinine Glucose POC Glucose 203 H 269 H 205 H Lactic Acid Calcium AST Alkaline Phosphatase CK-MB (CK-2) CK-MB (CK-2) Rel Index Albumin TSH Urine WBC (Auto) Salicylates 02/24/17 02/24/17 02/24/17 10:23 17:45 21:24 WBC RBC Hgb Hct MCV MCH RDW Plt Count Lymph % (Auto) [place] % (Auto) Eos % (Auto) Seg Neutrophils % Seg Neuts % (Manual) Lymphocytes % (Manual) Seg Neutrophils # Seg Neutrophils # Man Lymphocytes # (Manual) APTT POC ABG pH ABG pH POC ABG pCO2 POC ABG pO2 ABG pO2 ABG HCO3 ABG Base Excess ABG Hemoglobin VBG pH Oxyhemoglobin Sodium Potassium Chloride Carbon Dioxide BUN Creatinine Glucose POC Glucose 280 H 239 H 254 H Lactic Acid Calcium AST Alkaline Phosphatase CK-MB (CK-2) CK-MB (CK-2) Rel Index Albumin TSH Urine WBC (Auto) Salicylates 02/25/17 02/25/17 02/25/17 02:12 05:17 14:32 WBC RBC Hgb Hct MCV MCH RDW Plt Count Lymph % (Auto) [place] % (Auto) Eos % (Auto) Seg Neutrophils % Seg Neuts % (Manual) Lymphocytes % (Manual) Seg Neutrophils # Seg Neutrophils # Man Lymphocytes # (Manual) APTT POC ABG pH ABG pH POC ABG pCO2 POC ABG pO2 ABG pO2 ABG HCO3 ABG Base Excess ABG Hemoglobin VBG pH Oxyhemoglobin Sodium Potassium Chloride Carbon Dioxide BUN Creatinine Glucose POC Glucose 296 H 332 H 353 H Lactic Acid Calcium AST Alkaline Phosphatase CK-MB (CK-2) CK-MB (CK-2) Rel Index Albumin TSH Urine WBC (Auto) Salicylates 02/25/17 02/26/17 02/26/17 22:14 00:37 05:52 WBC RBC Hgb Hct MCV MCH RDW Plt Count Lymph % (Auto) [place] % (Auto) Eos % (Auto) Seg Neutrophils % Seg Neuts % (Manual) Lymphocytes % (Manual) Seg Neutrophils # Seg Neutrophils # Man Lymphocytes # (Manual) APTT POC ABG pH ABG pH POC ABG pCO2 POC ABG pO2 ABG pO2 ABG HCO3 ABG Base Excess ABG Hemoglobin VBG pH Oxyhemoglobin Sodium Potassium Chloride Carbon Dioxide BUN Creatinine Glucose POC Glucose 201 H 233 H 269 H Lactic Acid Calcium AST Alkaline Phosphatase CK-MB (CK-2) CK-MB (CK-2) Rel Index Albumin TSH Urine WBC (Auto) Salicylates 02/26/17 02/26/17 02/26/17 11:48 13:49 21:26 WBC RBC Hgb Hct MCV MCH RDW Plt Count Lymph % (Auto) [place] % (Auto) Eos % (Auto) Seg Neutrophils % Seg Neuts % (Manual) Lymphocytes % (Manual) Seg Neutrophils # Seg Neutrophils # Man Lymphocytes # (Manual) APTT POC ABG pH ABG pH POC ABG pCO2 POC ABG pO2 ABG pO2 ABG HCO3 ABG Base Excess ABG Hemoglobin VBG pH Oxyhemoglobin Sodium Potassium Chloride Carbon Dioxide BUN Creatinine Glucose POC Glucose 333 H 322 H 244 H Lactic Acid Calcium AST Alkaline Phosphatase CK-MB (CK-2) CK-MB (CK-2) Rel Index Albumin TSH Urine WBC (Auto) Salicylates 02/27/17 02/27/17 02/27/17 05:27 13:51 21:48 WBC RBC Hgb Hct MCV MCH RDW Plt Count Lymph % (Auto) [place] % (Auto) Eos % (Auto) Seg Neutrophils % Seg Neuts % (Manual) Lymphocytes % (Manual) Seg Neutrophils # Seg Neutrophils # Man Lymphocytes # (Manual) APTT POC ABG pH ABG pH POC ABG pCO2 POC ABG pO2 ABG pO2 ABG HCO3 ABG Base Excess ABG Hemoglobin VBG pH Oxyhemoglobin Sodium Potassium Chloride Carbon Dioxide BUN Creatinine Glucose POC Glucose 217 H 239 H 254 H Lactic Acid Calcium AST Alkaline Phosphatase CK-MB (CK-2) CK-MB (CK-2) Rel Index Albumin TSH Urine WBC (Auto) Salicylates 02/28/17 02/28/17 02/28/17 05:38 11:00 19:44 WBC RBC Hgb Hct MCV MCH RDW Plt Count Lymph % (Auto) [place] % (Auto) Eos % (Auto) Seg Neutrophils % Seg Neuts % (Manual) Lymphocytes % (Manual) Seg Neutrophils # Seg Neutrophils # Man Lymphocytes # (Manual) APTT POC ABG pH ABG pH POC ABG pCO2 POC ABG pO2 ABG pO2 ABG HCO3 ABG Base Excess ABG Hemoglobin VBG pH Oxyhemoglobin Sodium Potassium Chloride Carbon Dioxide BUN Creatinine Glucose POC Glucose 325 H 203 H 116 H Lactic Acid Calcium AST Alkaline Phosphatase CK-MB (CK-2) CK-MB (CK-2) Rel Index Albumin TSH Urine WBC (Auto) Salicylates 03/01/17 03/01/17 03/01/17 00:08 05:31 12:17 WBC RBC Hgb Hct MCV MCH RDW Plt Count Lymph % (Auto) [place] % (Auto) Eos % (Auto) Seg Neutrophils % Seg Neuts % (Manual) Lymphocytes % (Manual) Seg Neutrophils # Seg Neutrophils # Man Lymphocytes # (Manual) APTT POC ABG pH ABG pH POC ABG pCO2 POC ABG pO2 ABG pO2 ABG HCO3 ABG Base Excess ABG Hemoglobin VBG pH Oxyhemoglobin Sodium Potassium Chloride Carbon Dioxide BUN Creatinine Glucose POC Glucose 202 H 183 H 184 H Lactic Acid Calcium AST Alkaline Phosphatase CK-MB (CK-2) CK-MB (CK-2) Rel Index Albumin TSH Urine WBC (Auto) Salicylates 03/02/17 03/02/17 03/02/17 00:12 05:58 18:22 WBC RBC Hgb Hct MCV MCH RDW Plt Count Lymph % (Auto) [place] % (Auto) Eos % (Auto) Seg Neutrophils % Seg Neuts % (Manual) Lymphocytes % (Manual) Seg Neutrophils # Seg Neutrophils # Man Lymphocytes # (Manual) APTT POC ABG pH ABG pH POC ABG pCO2 POC ABG pO2 ABG pO2 ABG HCO3 ABG Base Excess ABG Hemoglobin VBG pH Oxyhemoglobin Sodium Potassium Chloride Carbon Dioxide BUN Creatinine Glucose POC Glucose 117 H 176 H 156 H Lactic Acid Calcium AST Alkaline Phosphatase CK-MB (CK-2) CK-MB (CK-2) Rel Index Albumin TSH Urine WBC (Auto) Salicylates 03/02/17 03/03/17 23:51 05:44 WBC RBC Hgb Hct MCV MCH RDW Plt Count Lymph % (Auto) [place] % (Auto) Eos % (Auto) Seg Neutrophils % Seg Neuts % (Manual) Lymphocytes % (Manual) Seg Neutrophils # Seg Neutrophils # Man Lymphocytes # (Manual) APTT POC ABG pH ABG pH POC ABG pCO2 POC ABG pO2 ABG pO2 ABG HCO3 ABG Base Excess ABG Hemoglobin VBG pH Oxyhemoglobin Sodium Potassium Chloride Carbon Dioxide BUN Creatinine Glucose POC Glucose 211 H 117 H Lactic Acid Calcium AST Alkaline Phosphatase CK-MB (CK-2) CK-MB (CK-2) Rel Index Albumin TSH Urine WBC (Auto) Salicylates
[2017-03-03] MEDS: PEPCID PO SCH ×2 (10:00→21:21)
[2017-03-03] MEDS: HEPARIN SUB-Q SCH ×2 (10:00→21:20)
[2017-03-03] MEDS: LEVEMIR (NF) SUB-Q SCH (10:00)
[2017-03-04] MEDS: HumuLIN R SUB-Q SCH ×4 (02:25→17:53)
[2017-03-04] MEDS: SYNTHROID PO SCH (05:14)
--- NOTE | 2017-03-04 07:57 | Progress Note ---
Assessment and Plan 51 y/o male found down, concern for sepsis and now encephalopathic requiring mechanical ventilation. 1. continue supportive care 2. 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 I am aware that he is an AND but trach will not fix this problem and is not in my professional opinion the right thing to do for this patient. Most likely he will never be weaned from the vent and will remain in a persistent vegatative state. 3. Patient is not on abx therapy and currently does not need this 4. Overall prognosis continues to be poor. Subjective Date of service: 03/04/17 Principal diagnosis: Acute respiratory failure,encephalopathy Interval history: Labetalol stopped and no issues with BP or HR. Objective Vital Signs - 12hr 03/03/17 03/03/17 03/03/17 20:00 22:00 23:22 Temperature 99.8 F H Pulse Rate 70 71 78 Pulse Rate [ 70 From Monitor] Respiratory 12 14 Rate Blood Pressure 136/86 134/80 138/80 O2 Sat by Pulse 99 100 100 Oximetry 03/03/17 03/04/17 03/04/17 23:47 00:00 02:00 Temperature 99.0 F Pulse Rate 77 80 Pulse Rate [ From Monitor] Respiratory 13 12 Rate Blood Pressure 127/82 130/81 O2 Sat by Pulse 100 99 Oximetry 03/04/17 03/04/17 03/04/17 04:00 04:14 06:00 Temperature 98.9 F Pulse Rate 77 80 77 Pulse Rate [ From Monitor] Respiratory 14 12 Rate Blood Pressure 125/75 125/75 117/81 O2 Sat by Pulse 99 99 99 Oximetry Constitutional: no acute distress, alert, other (orally intubated, on vent support) Eyes: non-icteric ENT: oropharynx moist Neck: supple, no JVD Effort: normal Ascultation: Bilateral: clear, diminished breath sounds Cardiovascular: regular rate and rhythm Gastrointestinal: normoactive bowel sounds, soft, non-tender, non-distended Integumentary: normal Extremities: no cyanosis, no edema, pink and warm Neurologic: other (awake spontaneously, not not following any commands. Fixed stare.) Psychiatric: other (unable to obtain) CBC and BMP: 02/09/17 07:24 02/09/17 07:24 ABG, PT/INR, D-dimer: ABG POC ABG pH 7.442 (7.35-7.45) 01/31/17 18:55 ABG pH 7.420 pH Units (7.350-7.450) 01/17/17 04:35 POC ABG pCO2 32.8 (35-45) L 01/31/17 18:55 ABG pCO2 34.5 mm Hg 01/17/17 04:35 POC ABG pO2 82 (80-105) 01/31/17 18:55 ABG pO2 160.3 mm Hg (80.0-90.0) H 01/17/17 04:35 POC ABG HCO3 22.4 01/31/17 18:55 POC ABG Total CO2 23 01/31/17 18:55 POC ABG O2 Sat 97 01/31/17 18:55 ABG O2 Saturation 99.0 % (95.0-99.0) 01/17/17 04:35 PT/INR, D-dimer PT 14.1 Sec. (12.2-14.9) 01/17/17 04:10 INR 1.04 (0.87-1.13) 01/17/17 04:10 Abnormal lab findings: Abnormal Labs 01/09/17 01/09/17 01/09/17 10:16 10:16 10:16 WBC RBC Hgb 9.7 L Hct 28.4 L MCV 76 L MCH 26 L RDW 17.2 H Plt Count 448 H Lymph % (Auto) [place] % (Auto) Eos % (Auto) Seg Neutrophils % 79.5 H Seg Neuts % (Manual) Lymphocytes % (Manual) Seg Neutrophils # Seg Neutrophils # Man Lymphocytes # (Manual) APTT 39.6 H POC ABG pH ABG pH POC ABG pCO2 POC ABG pO2 ABG pO2 ABG HCO3 ABG Base Excess ABG Hemoglobin VBG pH Oxyhemoglobin Sodium 132 L Potassium Chloride 96.7 L Carbon Dioxide 21 L BUN 34 H Creatinine Glucose POC Glucose Lactic Acid Calcium 8.3 L AST Alkaline Phosphatase 151 H CK-MB (CK-2) 7.1 H CK-MB (CK-2) Rel Index 5.2 H Albumin 3.3 L TSH Urine WBC (Auto) Salicylates 01/09/17 01/09/17 01/09/17 10:16 10:16 10:16 WBC RBC Hgb Hct MCV MCH RDW Plt Count Lymph % (Auto) [place] % (Auto) Eos % (Auto) Seg Neutrophils % Seg Neuts % (Manual) Lymphocytes % (Manual) Seg Neutrophils # Seg Neutrophils # Man Lymphocytes # (Manual) APTT POC ABG pH ABG pH POC ABG pCO2 POC ABG pO2 ABG pO2 ABG HCO3 ABG Base Excess ABG Hemoglobin VBG pH 7.284 L Oxyhemoglobin Sodium Potassium Chloride Carbon Dioxide BUN Creatinine Glucose POC Glucose Lactic Acid Calcium AST Alkaline Phosphatase CK-MB (CK-2) CK-MB (CK-2) Rel Index Albumin TSH 52.800 H Urine WBC (Auto) Salicylates < 0.3 L 01/09/17 01/09/17 01/09/17 10:23 11:14 12:49 WBC RBC Hgb Hct MCV MCH RDW Plt Count Lymph % (Auto) [place] % (Auto) Eos % (Auto) Seg Neutrophils % Seg Neuts % (Manual) Lymphocytes % (Manual) Seg Neutrophils # Seg Neutrophils # Man Lymphocytes # (Manual) APTT POC ABG pH ABG pH POC ABG pCO2 POC ABG pO2 643 H ABG pO2 ABG HCO3 ABG Base Excess ABG Hemoglobin VBG pH Oxyhemoglobin Sodium Potassium Chloride Carbon Dioxide BUN Creatinine Glucose POC Glucose < 40 L Lactic Acid Calcium AST Alkaline Phosphatase CK-MB (CK-2) CK-MB (CK-2) Rel Index Albumin TSH Urine WBC (Auto) 61.0 H Salicylates 01/09/17 01/09/17 01/09/17 13:13 14:21 15:09 WBC RBC Hgb Hct MCV MCH RDW Plt Count Lymph % (Auto) [place] % (Auto) Eos % (Auto) Seg Neutrophils % Seg Neuts % (Manual) Lymphocytes % (Manual) Seg Neutrophils # Seg Neutrophils # Man Lymphocytes # (Manual) APTT POC ABG pH ABG pH POC ABG pCO2 POC ABG pO2 ABG pO2 ABG HCO3 ABG Base Excess ABG Hemoglobin VBG pH Oxyhemoglobin Sodium Potassium Chloride Carbon Dioxide BUN Creatinine Glucose POC Glucose 128 H 65 L 120 H Lactic Acid Calcium AST Alkaline Phosphatase CK-MB (CK-2) CK-MB (CK-2) Rel Index Albumin TSH Urine WBC (Auto) Salicylates 01/09/17 01/09/17 01/10/17 16:28 17:14 04:30 WBC 24.1 H RBC 3.38 L Hgb 8.5 L Hct 26.0 L MCV 77 L MCH 25 L RDW 17.9 H Plt Count 474 H Lymph % (Auto) [place] % (Auto) Eos % (Auto) Seg Neutrophils % Seg Neuts % (Manual) 88.0 H Lymphocytes % (Manual) 4.0 L Seg Neutrophils # Seg Neutrophils # Man 21.2 H Lymphocytes # (Manual) 1.0 L APTT POC ABG pH ABG pH POC ABG pCO2 POC ABG pO2 ABG pO2 ABG HCO3 ABG Base Excess ABG Hemoglobin VBG pH Oxyhemoglobin Sodium Potassium Chloride Carbon Dioxide BUN Creatinine Glucose POC Glucose 44 L 112 H Lactic Acid Calcium AST Alkaline Phosphatase CK-MB (CK-2) CK-MB (CK-2) Rel Index Albumin TSH Urine WBC (Auto) Salicylates 01/10/17 01/10/17 01/10/17 04:30 05:41 05:45 WBC RBC Hgb Hct MCV MCH RDW Plt Count Lymph % (Auto) [place] % (Auto) Eos % (Auto) Seg Neutrophils % Seg Neuts % (Manual) Lymphocytes % (Manual) Seg Neutrophils # Seg Neutrophils # Man Lymphocytes # (Manual) APTT POC ABG pH ABG pH POC ABG pCO2 26.6 L POC ABG pO2 207 H ABG pO2 ABG HCO3 ABG Base Excess ABG Hemoglobin VBG pH Oxyhemoglobin Sodium Potassium Chloride Carbon Dioxide 17 L BUN 27 H Creatinine Glucose POC Glucose 68 L Lactic Acid Calcium 7.5 L AST Alkaline Phosphatase CK-MB (CK-2) CK-MB (CK-2) Rel Index Albumin TSH Urine WBC (Auto) Salicylates 01/10/17 01/10/17 01/10/17 07:47 10:50 13:41 WBC RBC Hgb Hct MCV MCH RDW Plt Count Lymph % (Auto) [place] % (Auto) Eos % (Auto) Seg Neutrophils % Seg Neuts % (Manual) Lymphocytes % (Manual) Seg Neutrophils # Seg Neutrophils # Man Lymphocytes # (Manual) APTT POC ABG pH ABG pH POC ABG pCO2 POC ABG pO2 ABG pO2 ABG HCO3 ABG Base Excess ABG Hemoglobin VBG pH Oxyhemoglobin Sodium Potassium Chloride Carbon Dioxide BUN Creatinine Glucose POC Glucose 148 H 165 H 114 H Lactic Acid Calcium AST Alkaline Phosphatase CK-MB (CK-2) CK-MB (CK-2) Rel Index Albumin TSH Urine WBC (Auto) Salicylates 01/10/17 01/10/17 01/10/17 20:20 21:39 23:24 WBC RBC Hgb Hct MCV MCH RDW Plt Count Lymph % (Auto) [place] % (Auto) Eos % (Auto) Seg Neutrophils % Seg Neuts % (Manual) Lymphocytes % (Manual) Seg Neutrophils # Seg Neutrophils # Man Lymphocytes # (Manual) APTT POC ABG pH ABG pH POC ABG pCO2 POC ABG pO2 ABG pO2 ABG HCO3 ABG Base Excess ABG Hemoglobin VBG pH Oxyhemoglobin Sodium Potassium Chloride Carbon Dioxide BUN Creatinine Glucose POC Glucose 150 H 175 H 155 H Lactic Acid Calcium AST Alkaline Phosphatase CK-MB (CK-2) CK-MB (CK-2) Rel Index Albumin TSH Urine WBC (Auto) Salicylates 01/11/17 01/11/17 01/11/17 00:19 04:06 05:20 WBC 15.2 H RBC 3.40 L Hgb 8.9 L Hct 26.3 L MCV 78 L MCH 26 L RDW 18.6 H Plt Count 462 H Lymph % (Auto) 13.2 L [place] % (Auto) Eos % (Auto) Seg Neutrophils % 80.8 H Seg Neuts % (Manual) Lymphocytes % (Manual) Seg Neutrophils # 12.3 H Seg Neutrophils # Man Lymphocytes # (Manual) APTT POC ABG pH 7.463 H ABG pH POC ABG pCO2 26.2 L POC ABG pO2 185 H ABG pO2 ABG HCO3 ABG Base Excess ABG Hemoglobin VBG pH Oxyhemoglobin Sodium Potassium Chloride Carbon Dioxide BUN Creatinine Glucose POC Glucose 163 H Lactic Acid Calcium AST Alkaline Phosphatase CK-MB (CK-2) CK-MB (CK-2) Rel Index Albumin TSH Urine WBC (Auto) Salicylates 01/11/17 01/11/17 01/11/17 05:20 06:21 07:57 WBC RBC Hgb Hct MCV MCH RDW Plt Count Lymph % (Auto) [place] % (Auto) Eos % (Auto) Seg Neutrophils % Seg Neuts % (Manual) Lymphocytes % (Manual) Seg Neutrophils # Seg Neutrophils # Man Lymphocytes # (Manual) APTT POC ABG pH ABG pH POC ABG pCO2 POC ABG pO2 ABG pO2 ABG HCO3 ABG Base Excess ABG Hemoglobin VBG pH Oxyhemoglobin Sodium Potassium 3.4 L Chloride 111.5 H Carbon Dioxide 17 L BUN Creatinine Glucose 147 H POC Glucose 139 H 188 H Lactic Acid Calcium 8.0 L AST Alkaline Phosphatase CK-MB (CK-2) CK-MB (CK-2) Rel Index Albumin TSH Urine WBC (Auto) Salicylates 01/11/17 01/11/17 01/11/17 11:46 16:50 23:15 WBC RBC Hgb Hct MCV MCH RDW Plt Count Lymph % (Auto) [place] % (Auto) Eos % (Auto) Seg Neutrophils % Seg Neuts % (Manual) Lymphocytes % (Manual) Seg Neutrophils # Seg Neutrophils # Man Lymphocytes # (Manual) APTT POC ABG pH ABG pH POC ABG pCO2 POC ABG pO2 ABG pO2 ABG HCO3 ABG Base Excess ABG Hemoglobin VBG pH Oxyhemoglobin Sodium Potassium Chloride Carbon Dioxide BUN Creatinine Glucose POC Glucose 199 H 235 H 155 H Lactic Acid Calcium AST Alkaline Phosphatase CK-MB (CK-2) CK-MB (CK-2) Rel Index Albumin TSH Urine WBC (Auto) Salicylates 01/12/17 01/12/17 01/12/17 05:02 06:56 14:50 WBC RBC Hgb Hct MCV MCH RDW Plt Count Lymph % (Auto) [place] % (Auto) Eos % (Auto) Seg Neutrophils % Seg Neuts % (Manual) Lymphocytes % (Manual) Seg Neutrophils # Seg Neutrophils # Man Lymphocytes # (Manual) APTT POC ABG pH ABG pH POC ABG pCO2 28.0 L POC ABG pO2 178 H ABG pO2 ABG HCO3 ABG Base Excess ABG Hemoglobin VBG pH Oxyhemoglobin Sodium Potassium Chloride Carbon Dioxide BUN Creatinine Glucose POC Glucose 119 H 164 H Lactic Acid Calcium AST Alkaline Phosphatase CK-MB (CK-2) CK-MB (CK-2) Rel Index Albumin TSH Urine WBC (Auto) Salicylates 01/13/17 01/13/17 01/13/17 03:37 03:37 04:26 WBC RBC 3.61 L Hgb 9.3 L Hct 28.0 L MCV 78 L MCH 26 L RDW 18.2 H Plt Count Lymph % (Auto) [place] % (Auto) Eos % (Auto) Seg Neutrophils % Seg Neuts % (Manual) Lymphocytes % (Manual) Seg Neutrophils # Seg Neutrophils # Man Lymphocytes # (Manual) APTT POC ABG pH 7.485 H ABG pH POC ABG pCO2 25.4 L POC ABG pO2 73 L ABG pO2 ABG HCO3 ABG Base Excess ABG Hemoglobin VBG pH Oxyhemoglobin Sodium Potassium Chloride 112.4 H Carbon Dioxide 19 L BUN Creatinine Glucose 118 H POC Glucose Lactic Acid Calcium 8.0 L AST Alkaline Phosphatase CK-MB (CK-2) CK-MB (CK-2) Rel Index Albumin TSH Urine WBC (Auto) Salicylates 01/13/17 01/13/17 01/13/17 06:15 11:50 17:31 WBC RBC Hgb Hct MCV MCH RDW Plt Count Lymph % (Auto) [place] % (Auto) Eos % (Auto) Seg Neutrophils % Seg Neuts % (Manual) Lymphocytes % (Manual) Seg Neutrophils # Seg Neutrophils # Man Lymphocytes # (Manual) APTT POC ABG pH ABG pH POC ABG pCO2 POC ABG pO2 ABG pO2 ABG HCO3 ABG Base Excess ABG Hemoglobin VBG pH Oxyhemoglobin Sodium Potassium Chloride Carbon Dioxide BUN Creatinine Glucose POC Glucose 116 H 171 H 203 H Lactic Acid Calcium AST Alkaline Phosphatase CK-MB (CK-2) CK-MB (CK-2) Rel Index Albumin TSH Urine WBC (Auto) Salicylates 01/14/17 01/14/17 01/14/17 00:02 04:50 04:50 WBC RBC 3.32 L Hgb 8.5 L Hct 26.1 L MCV 79 L MCH 26 L RDW 18.2 H Plt Count Lymph % (Auto) [place] % (Auto) 9.0 H Eos % (Auto) Seg Neutrophils % Seg Neuts % (Manual) Lymphocytes % (Manual) Seg Neutrophils # Seg Neutrophils # Man Lymphocytes # (Manual) APTT POC ABG pH ABG pH POC ABG pCO2 POC ABG pO2 ABG pO2 ABG HCO3 ABG Base Excess ABG Hemoglobin VBG pH Oxyhemoglobin Sodium Potassium Chloride 112.5 H Carbon Dioxide BUN Creatinine Glucose 149 H POC Glucose 157 H Lactic Acid Calcium 8.1 L AST Alkaline Phosphatase CK-MB (CK-2) CK-MB (CK-2) Rel Index Albumin TSH Urine WBC (Auto) Salicylates 01/14/17 01/14/17 01/14/17 05:10 11:27 14:07 WBC RBC Hgb Hct MCV MCH RDW Plt Count Lymph % (Auto) [place] % (Auto) Eos % (Auto) Seg Neutrophils % Seg Neuts % (Manual) Lymphocytes % (Manual) Seg Neutrophils # Seg Neutrophils # Man Lymphocytes # (Manual) APTT POC ABG pH ABG pH POC ABG pCO2 POC ABG pO2 ABG pO2 ABG HCO3 ABG Base Excess ABG Hemoglobin VBG pH Oxyhemoglobin Sodium Potassium Chloride Carbon Dioxide BUN Creatinine Glucose POC Glucose 176 H 147 H Lactic Acid Calcium AST Alkaline Phosphatase CK-MB (CK-2) CK-MB (CK-2) Rel Index Albumin TSH Urine WBC (Auto) 53.0 H Salicylates 01/14/17 01/15/17 01/15/17 16:52 00:04 05:26 WBC RBC Hgb Hct MCV MCH RDW Plt Count Lymph % (Auto) [place] % (Auto) Eos % (Auto) Seg Neutrophils % Seg Neuts % (Manual) Lymphocytes % (Manual) Seg Neutrophils # Seg Neutrophils # Man Lymphocytes # (Manual) APTT POC ABG pH ABG pH POC ABG pCO2 POC ABG pO2 ABG pO2 ABG HCO3 ABG Base Excess ABG Hemoglobin VBG pH Oxyhemoglobin Sodium Potassium Chloride Carbon Dioxide BUN Creatinine Glucose POC Glucose 131 H 193 H 215 H Lactic Acid Calcium AST Alkaline Phosphatase CK-MB (CK-2) CK-MB (CK-2) Rel Index Albumin TSH Urine WBC (Auto) Salicylates 01/15/17 01/15/17 01/15/17 11:49 17:47 21:33 WBC RBC Hgb Hct MCV MCH RDW Plt Count Lymph % (Auto) [place] % (Auto) Eos % (Auto) Seg Neutrophils % Seg Neuts % (Manual) Lymphocytes % (Manual) Seg Neutrophils # Seg Neutrophils # Man Lymphocytes # (Manual) APTT POC ABG pH ABG pH POC ABG pCO2 POC ABG pO2 ABG pO2 ABG HCO3 ABG Base Excess ABG Hemoglobin VBG pH Oxyhemoglobin Sodium Potassium Chloride Carbon Dioxide BUN Creatinine Glucose POC Glucose 121 H 211 H 275 H Lactic Acid Calcium AST Alkaline Phosphatase CK-MB (CK-2) CK-MB (CK-2) Rel Index Albumin TSH Urine WBC (Auto) Salicylates 01/16/17 01/16/17 01/16/17 04:30 05:28 13:45 WBC RBC Hgb Hct MCV MCH RDW Plt Count Lymph % (Auto) [place] % (Auto) Eos % (Auto) Seg Neutrophils % Seg Neuts % (Manual) Lymphocytes % (Manual) Seg Neutrophils # Seg Neutrophils # Man Lymphocytes # (Manual) APTT POC ABG pH ABG pH 7.457 H POC ABG pCO2 POC ABG pO2 ABG pO2 55.1 L ABG HCO3 19.4 L ABG Base Excess -4.0 L ABG Hemoglobin 6.8 L VBG pH Oxyhemoglobin 94.9 L Sodium Potassium Chloride Carbon Dioxide BUN Creatinine Glucose POC Glucose 271 H 236 H Lactic Acid Calcium AST Alkaline Phosphatase CK-MB (CK-2) CK-MB (CK-2) Rel Index Albumin TSH Urine WBC (Auto) Salicylates 01/16/17 01/17/17 01/17/17 21:39 04:10 04:10 WBC 4.4 L RBC 2.98 L Hgb 7.7 L Hct 23.3 L MCV 78 L MCH 26 L RDW 18.1 H Plt Count Lymph % (Auto) [place] % (Auto) Eos % (Auto) Seg Neutrophils % Seg Neuts % (Manual) Lymphocytes % (Manual) Seg Neutrophils # Seg Neutrophils # Man Lymphocytes # (Manual) APTT POC ABG pH ABG pH POC ABG pCO2 POC ABG pO2 ABG pO2 ABG HCO3 ABG Base Excess ABG Hemoglobin VBG pH Oxyhemoglobin Sodium Potassium 3.3 L Chloride 108.7 H Carbon Dioxide 20 L BUN 8 L Creatinine Glucose 202 H POC Glucose 258 H Lactic Acid Calcium 7.6 L AST Alkaline Phosphatase CK-MB (CK-2) CK-MB (CK-2) Rel Index Albumin TSH Urine WBC (Auto) Salicylates 01/17/17 01/17/17 01/17/17 04:35 12:23 16:01 WBC RBC Hgb Hct MCV MCH RDW Plt Count Lymph % (Auto) [place] % (Auto) Eos % (Auto) Seg Neutrophils % Seg Neuts % (Manual) Lymphocytes % (Manual) Seg Neutrophils # Seg Neutrophils # Man Lymphocytes # (Manual) APTT POC ABG pH ABG pH POC ABG pCO2 POC ABG pO2 ABG pO2 160.3 H ABG HCO3 ABG Base Excess -2.3 L ABG Hemoglobin 7.9 L VBG pH Oxyhemoglobin Sodium Potassium Chloride Carbon Dioxide BUN Creatinine Glucose POC Glucose 321 H 239 H Lactic Acid Calcium AST Alkaline Phosphatase CK-MB (CK-2) CK-MB (CK-2) Rel Index Albumin TSH Urine WBC (Auto) Salicylates 01/18/17 01/18/17 01/18/17 05:07 12:09 17:54 WBC RBC Hgb Hct MCV MCH RDW Plt Count Lymph % (Auto) [place] % (Auto) Eos % (Auto) Seg Neutrophils % Seg Neuts % (Manual) Lymphocytes % (Manual) Seg Neutrophils # Seg Neutrophils # Man Lymphocytes # (Manual) APTT POC ABG pH ABG pH POC ABG pCO2 POC ABG pO2 ABG pO2 ABG HCO3 ABG Base Excess ABG Hemoglobin VBG pH Oxyhemoglobin Sodium Potassium Chloride Carbon Dioxide BUN Creatinine Glucose POC Glucose 155 H 203 H 132 H Lactic Acid Calcium AST Alkaline Phosphatase CK-MB (CK-2) CK-MB (CK-2) Rel Index Albumin TSH Urine WBC (Auto) Salicylates 01/18/17 01/19/17 01/19/17 23:43 04:28 12:11 WBC RBC Hgb Hct MCV MCH RDW Plt Count Lymph % (Auto) [place] % (Auto) Eos % (Auto) Seg Neutrophils % Seg Neuts % (Manual) Lymphocytes % (Manual) Seg Neutrophils # Seg Neutrophils # Man Lymphocytes # (Manual) APTT POC ABG pH ABG pH POC ABG pCO2 POC ABG pO2 ABG pO2 ABG HCO3 ABG Base Excess ABG Hemoglobin VBG pH Oxyhemoglobin Sodium Potassium Chloride Carbon Dioxide BUN Creatinine Glucose POC Glucose 125 H 182 H 153 H Lactic Acid Calcium AST Alkaline Phosphatase CK-MB (CK-2) CK-MB (CK-2) Rel Index Albumin TSH Urine WBC (Auto) Salicylates 01/19/17 01/20/17 01/20/17 17:23 00:12 05:44 WBC RBC Hgb Hct MCV MCH RDW Plt Count Lymph % (Auto) [place] % (Auto) Eos % (Auto) Seg Neutrophils % Seg Neuts % (Manual) Lymphocytes % (Manual) Seg Neutrophils # Seg Neutrophils # Man Lymphocytes # (Manual) APTT POC ABG pH ABG pH POC ABG pCO2 POC ABG pO2 ABG pO2 ABG HCO3 ABG Base Excess ABG Hemoglobin VBG pH Oxyhemoglobin Sodium Potassium Chloride Carbon Dioxide BUN Creatinine Glucose POC Glucose 66 L 139 H 176 H Lactic Acid Calcium AST Alkaline Phosphatase CK-MB (CK-2) CK-MB (CK-2) Rel Index Albumin TSH Urine WBC (Auto) Salicylates 01/20/17 01/20/17 01/20/17 11:48 17:42 23:43 WBC RBC Hgb Hct MCV MCH RDW Plt Count Lymph % (Auto) [place] % (Auto) Eos % (Auto) Seg Neutrophils % Seg Neuts % (Manual) Lymphocytes % (Manual) Seg Neutrophils # Seg Neutrophils # Man Lymphocytes # (Manual) APTT POC ABG pH ABG pH POC ABG pCO2 POC ABG pO2 ABG pO2 ABG HCO3 ABG Base Excess ABG Hemoglobin VBG pH Oxyhemoglobin Sodium Potassium Chloride Carbon Dioxide BUN Creatinine Glucose POC Glucose 218 H 132 H 178 H Lactic Acid Calcium AST Alkaline Phosphatase CK-MB (CK-2) CK-MB (CK-2) Rel Index Albumin TSH Urine WBC (Auto) Salicylates 01/21/17 01/21/17 01/21/17 05:34 11:17 23:37 WBC RBC Hgb Hct MCV MCH RDW Plt Count Lymph % (Auto) [place] % (Auto) Eos % (Auto) Seg Neutrophils % Seg Neuts % (Manual) Lymphocytes % (Manual) Seg Neutrophils # Seg Neutrophils # Man Lymphocytes # (Manual) APTT POC ABG pH ABG pH POC ABG pCO2 POC ABG pO2 ABG pO2 ABG HCO3 ABG Base Excess ABG Hemoglobin VBG pH Oxyhemoglobin Sodium Potassium Chloride Carbon Dioxide BUN Creatinine Glucose POC Glucose 106 H 213 H 140 H Lactic Acid Calcium AST Alkaline Phosphatase CK-MB (CK-2) CK-MB (CK-2) Rel Index Albumin TSH Urine WBC (Auto) Salicylates 01/22/17 01/22/17 01/22/17 04:00 04:00 04:58 WBC RBC 3.26 L Hgb 8.3 L Hct 25.5 L MCV 78 L MCH 25 L RDW 17.9 H Plt Count Lymph % (Auto) [place] % (Auto) 7.9 H Eos % (Auto) 6.2 H Seg Neutrophils % Seg Neuts % (Manual) Lymphocytes % (Manual) Seg Neutrophils # Seg Neutrophils # Man Lymphocytes # (Manual) APTT POC ABG pH ABG pH POC ABG pCO2 POC ABG pO2 ABG pO2 ABG HCO3 ABG Base Excess ABG Hemoglobin VBG pH Oxyhemoglobin Sodium Potassium Chloride 95.5 L Carbon Dioxide 31 H D BUN Creatinine Glucose 134 H POC Glucose 146 H Lactic Acid Calcium AST 44 H Alkaline Phosphatase 379 H CK-MB (CK-2) CK-MB (CK-2) Rel Index Albumin 2.7 L TSH Urine WBC (Auto) Salicylates 01/22/17 01/22/17 01/22/17 12:12 18:12 23:39 WBC RBC Hgb Hct MCV MCH RDW Plt Count Lymph % (Auto) [place] % (Auto) Eos % (Auto) Seg Neutrophils % Seg Neuts % (Manual) Lymphocytes % (Manual) Seg Neutrophils # Seg Neutrophils # Man Lymphocytes # (Manual) APTT POC ABG pH ABG pH POC ABG pCO2 POC ABG pO2 ABG pO2 ABG HCO3 ABG Base Excess ABG Hemoglobin VBG pH Oxyhemoglobin Sodium Potassium Chloride Carbon Dioxide BUN Creatinine Glucose POC Glucose 255 H 182 H 134 H Lactic Acid Calcium AST Alkaline Phosphatase CK-MB (CK-2) CK-MB (CK-2) Rel Index Albumin TSH Urine WBC (Auto) Salicylates 01/23/17 01/23/17 01/23/17 04:43 12:12 17:36 WBC RBC Hgb Hct MCV MCH RDW Plt Count Lymph % (Auto) [place] % (Auto) Eos % (Auto) Seg Neutrophils % Seg Neuts % (Manual) Lymphocytes % (Manual) Seg Neutrophils # Seg Neutrophils # Man Lymphocytes # (Manual) APTT POC ABG pH ABG pH POC ABG pCO2 POC ABG pO2 ABG pO2 ABG HCO3 ABG Base Excess ABG Hemoglobin VBG pH Oxyhemoglobin Sodium Potassium Chloride Carbon Dioxide BUN Creatinine Glucose POC Glucose 218 H 128 H 156 H Lactic Acid Calcium AST Alkaline Phosphatase CK-MB (CK-2) CK-MB (CK-2) Rel Index Albumin TSH Urine WBC (Auto) Salicylates 01/24/17 01/24/17 01/24/17 00:08 05:16 11:40 WBC RBC Hgb Hct MCV MCH RDW Plt Count Lymph % (Auto) [place] % (Auto) Eos % (Auto) Seg Neutrophils % Seg Neuts % (Manual) Lymphocytes % (Manual) Seg Neutrophils # Seg Neutrophils # Man Lymphocytes # (Manual) APTT POC ABG pH ABG pH POC ABG pCO2 POC ABG pO2 ABG pO2 ABG HCO3 ABG Base Excess ABG Hemoglobin VBG pH Oxyhemoglobin Sodium Potassium Chloride Carbon Dioxide BUN Creatinine Glucose POC Glucose 129 H 169 H 187 H Lactic Acid Calcium AST Alkaline Phosphatase CK-MB (CK-2) CK-MB (CK-2) Rel Index Albumin TSH Urine WBC (Auto) Salicylates 01/24/17 01/24/17 01/25/17 17:43 23:23 04:56 WBC RBC Hgb Hct MCV MCH RDW Plt Count Lymph % (Auto) [place] % (Auto) Eos % (Auto) Seg Neutrophils % Seg Neuts % (Manual) Lymphocytes % (Manual) Seg Neutrophils # Seg Neutrophils # Man Lymphocytes # (Manual) APTT POC ABG pH ABG pH POC ABG pCO2 POC ABG pO2 ABG pO2 ABG HCO3 ABG Base Excess ABG Hemoglobin VBG pH Oxyhemoglobin Sodium Potassium Chloride Carbon Dioxide BUN Creatinine Glucose POC Glucose 215 H 222 H 210 H Lactic Acid Calcium AST Alkaline Phosphatase CK-MB (CK-2) CK-MB (CK-2) Rel Index Albumin TSH Urine WBC (Auto) Salicylates 01/25/17 01/25/17 01/26/17 11:52 17:37 00:02 WBC RBC Hgb Hct MCV MCH RDW Plt Count Lymph % (Auto) [place] % (Auto) Eos % (Auto) Seg Neutrophils % Seg Neuts % (Manual) Lymphocytes % (Manual) Seg Neutrophils # Seg Neutrophils # Man Lymphocytes # (Manual) APTT POC ABG pH ABG pH POC ABG pCO2 POC ABG pO2 ABG pO2 ABG HCO3 ABG Base Excess ABG Hemoglobin VBG pH Oxyhemoglobin Sodium Potassium Chloride Carbon Dioxide BUN Creatinine Glucose POC Glucose 284 H 218 H 192 H Lactic Acid Calcium AST Alkaline Phosphatase CK-MB (CK-2) CK-MB (CK-2) Rel Index Albumin TSH Urine WBC (Auto) Salicylates 01/26/17 01/26/17 01/26/17 05:33 12:17 17:50 WBC RBC Hgb Hct MCV MCH RDW Plt Count Lymph % (Auto) [place] % (Auto) Eos % (Auto) Seg Neutrophils % Seg Neuts % (Manual) Lymphocytes % (Manual) Seg Neutrophils # Seg Neutrophils # Man Lymphocytes # (Manual) APTT POC ABG pH ABG pH POC ABG pCO2 POC ABG pO2 ABG pO2 ABG HCO3 ABG Base Excess ABG Hemoglobin VBG pH Oxyhemoglobin Sodium Potassium Chloride Carbon Dioxide BUN Creatinine Glucose POC Glucose 199 H 227 H 229 H Lactic Acid Calcium AST Alkaline Phosphatase CK-MB (CK-2) CK-MB (CK-2) Rel Index Albumin TSH Urine WBC (Auto) Salicylates 01/26/17 01/27/17 01/27/17 23:57 05:31 11:42 WBC RBC Hgb Hct MCV MCH RDW Plt Count Lymph % (Auto) [place] % (Auto) Eos % (Auto) Seg Neutrophils % Seg Neuts % (Manual) Lymphocytes % (Manual) Seg Neutrophils # Seg Neutrophils # Man Lymphocytes # (Manual) APTT POC ABG pH ABG pH POC ABG pCO2 POC ABG pO2 ABG pO2 ABG HCO3 ABG Base Excess ABG Hemoglobin VBG pH Oxyhemoglobin Sodium Potassium Chloride Carbon Dioxide BUN Creatinine Glucose POC Glucose 186 H 285 H 260 H Lactic Acid Calcium AST Alkaline Phosphatase CK-MB (CK-2) CK-MB (CK-2) Rel Index Albumin TSH Urine WBC (Auto) Salicylates 01/27/17 01/27/17 01/27/17 17:47 23:58 Unknown WBC 12.1 H RBC 3.28 L Hgb 8.5 L Hct 25.5 L MCV 78 L MCH 26 L RDW 16.8 H Plt Count 601 H Lymph % (Auto) [place] % (Auto) Eos % (Auto) Seg Neutrophils % Seg Neuts % (Manual) Lymphocytes % (Manual) Seg Neutrophils # Seg Neutrophils # Man Lymphocytes # (Manual) APTT POC ABG pH ABG pH POC ABG pCO2 POC ABG pO2 ABG pO2 ABG HCO3 ABG Base Excess ABG Hemoglobin VBG pH Oxyhemoglobin Sodium Potassium Chloride Carbon Dioxide BUN Creatinine Glucose POC Glucose 329 H 225 H Lactic Acid Calcium AST Alkaline Phosphatase CK-MB (CK-2) CK-MB (CK-2) Rel Index Albumin TSH Urine WBC (Auto) Salicylates 01/27/17 01/28/17 01/28/17 Unknown 03:44 03:44 WBC RBC 3.14 L Hgb 8.2 L Hct 24.1 L MCV 77 L MCH 26 L RDW 16.9 H Plt Count 567 H Lymph % (Auto) [place] % (Auto) Eos % (Auto) Seg Neutrophils % Seg Neuts % (Manual) Lymphocytes % (Manual) Seg Neutrophils # Seg Neutrophils # Man Lymphocytes # (Manual) APTT POC ABG pH ABG pH POC ABG pCO2 POC ABG pO2 ABG pO2 ABG HCO3 ABG Base Excess ABG Hemoglobin VBG pH Oxyhemoglobin Sodium 128 L Potassium 5.4 H Chloride 87.5 L Carbon Dioxide BUN 44 H 42 H Creatinine Glucose 250 H 128 H POC Glucose Lactic Acid Calcium AST Alkaline Phosphatase CK-MB (CK-2) CK-MB (CK-2) Rel Index Albumin TSH Urine WBC (Auto) Salicylates 01/28/17 01/28/17 01/28/17 11:43 16:47 17:52 WBC RBC Hgb Hct MCV MCH RDW Plt Count Lymph % (Auto) [place] % (Auto) Eos % (Auto) Seg Neutrophils % Seg Neuts % (Manual) Lymphocytes % (Manual) Seg Neutrophils # Seg Neutrophils # Man Lymphocytes # (Manual) APTT POC ABG pH ABG pH POC ABG pCO2 POC ABG pO2 ABG pO2 ABG HCO3 ABG Base Excess ABG Hemoglobin VBG pH Oxyhemoglobin Sodium Potassium Chloride Carbon Dioxide BUN Creatinine Glucose POC Glucose 351 H 249 H Lactic Acid Calcium AST Alkaline Phosphatase CK-MB (CK-2) CK-MB (CK-2) Rel Index Albumin TSH Urine WBC (Auto) > 182.0 H Salicylates 01/29/17 01/29/17 01/29/17 05:25 05:25 09:32 WBC 13.6 H RBC 3.25 L Hgb 8.3 L Hct 25.1 L MCV 77 L MCH 26 L RDW 16.8 H Plt Count 514 H Lymph % (Auto) [place] % (Auto) Eos % (Auto) Seg Neutrophils % Seg Neuts % (Manual) Lymphocytes % (Manual) Seg Neutrophils # Seg Neutrophils # Man Lymphocytes # (Manual) APTT POC ABG pH ABG pH POC ABG pCO2 POC ABG pO2 ABG pO2 ABG HCO3 ABG Base Excess ABG Hemoglobin VBG pH Oxyhemoglobin Sodium Potassium Chloride 97.8 L Carbon Dioxide BUN 34 H Creatinine Glucose 222 H POC Glucose Lactic Acid 2.50 H* Calcium AST Alkaline Phosphatase CK-MB (CK-2) CK-MB (CK-2) Rel Index Albumin TSH Urine WBC (Auto) Salicylates 01/29/17 01/29/17 01/29/17 11:56 18:11 23:55 WBC RBC Hgb Hct MCV MCH RDW Plt Count Lymph % (Auto) [place] % (Auto) Eos % (Auto) Seg Neutrophils % Seg Neuts % (Manual) Lymphocytes % (Manual) Seg Neutrophils # Seg Neutrophils # Man Lymphocytes # (Manual) APTT POC ABG pH ABG pH POC ABG pCO2 POC ABG pO2 ABG pO2 ABG HCO3 ABG Base Excess ABG Hemoglobin VBG pH Oxyhemoglobin Sodium Potassium Chloride Carbon Dioxide BUN Creatinine Glucose POC Glucose 261 H 215 H 176 H Lactic Acid Calcium AST Alkaline Phosphatase CK-MB (CK-2) CK-MB (CK-2) Rel Index Albumin TSH Urine WBC (Auto) Salicylates 01/30/17 01/30/17 01/30/17 05:31 05:31 05:34 WBC 15.2 H RBC 3.09 L Hgb 7.9 L Hct 23.9 L MCV 77 L MCH 26 L RDW 16.9 H Plt Count 569 H Lymph % (Auto) [place] % (Auto) Eos % (Auto) Seg Neutrophils % Seg Neuts % (Manual) Lymphocytes % (Manual) Seg Neutrophils # Seg Neutrophils # Man Lymphocytes # (Manual) APTT POC ABG pH ABG pH POC ABG pCO2 POC ABG pO2 ABG pO2 ABG HCO3 ABG Base Excess ABG Hemoglobin VBG pH Oxyhemoglobin Sodium Potassium Chloride Carbon Dioxide BUN 24 H Creatinine Glucose 235 H POC Glucose 243 H Lactic Acid Calcium AST Alkaline Phosphatase CK-MB (CK-2) CK-MB (CK-2) Rel Index Albumin TSH Urine WBC (Auto) Salicylates 01/30/17 01/30/17 01/30/17 11:38 17:58 23:29 WBC RBC Hgb Hct MCV MCH RDW Plt Count Lymph % (Auto) [place] % (Auto) Eos % (Auto) Seg Neutrophils % Seg Neuts % (Manual) Lymphocytes % (Manual) Seg Neutrophils # Seg Neutrophils # Man Lymphocytes # (Manual) APTT POC ABG pH ABG pH POC ABG pCO2 POC ABG pO2 ABG pO2 ABG HCO3 ABG Base Excess ABG Hemoglobin VBG pH Oxyhemoglobin Sodium Potassium Chloride Carbon Dioxide BUN Creatinine Glucose POC Glucose 298 H 208 H 245 H Lactic Acid Calcium AST Alkaline Phosphatase CK-MB (CK-2) CK-MB (CK-2) Rel Index Albumin TSH Urine WBC (Auto) Salicylates 01/31/17 01/31/17 01/31/17 04:39 04:39 05:57 WBC 11.4 H RBC 3.22 L Hgb 8.2 L Hct 24.9 L MCV 78 L MCH 25 L RDW 17.2 H Plt Count 576 H Lymph % (Auto) [place] % (Auto) Eos % (Auto) Seg Neutrophils % Seg Neuts % (Manual) Lymphocytes % (Manual) Seg Neutrophils # Seg Neutrophils # Man Lymphocytes # (Manual) APTT POC ABG pH ABG pH POC ABG pCO2 POC ABG pO2 ABG pO2 ABG HCO3 ABG Base Excess ABG Hemoglobin VBG pH Oxyhemoglobin Sodium Potassium Chloride Carbon Dioxide BUN Creatinine 0.7 L Glucose 223 H POC Glucose 264 H Lactic Acid Calcium AST Alkaline Phosphatase CK-MB (CK-2) CK-MB (CK-2) Rel Index Albumin TSH Urine WBC (Auto) Salicylates 01/31/17 01/31/17 01/31/17 12:23 17:41 18:55 WBC RBC Hgb Hct MCV MCH RDW Plt Count Lymph % (Auto) [place] % (Auto) Eos % (Auto) Seg Neutrophils % Seg Neuts % (Manual) Lymphocytes % (Manual) Seg Neutrophils # Seg Neutrophils # Man Lymphocytes # (Manual) APTT POC ABG pH ABG pH POC ABG pCO2 32.8 L POC ABG pO2 ABG pO2 ABG HCO3 ABG Base Excess ABG Hemoglobin VBG pH Oxyhemoglobin Sodium Potassium Chloride Carbon Dioxide BUN Creatinine Glucose POC Glucose 252 H 208 H Lactic Acid Calcium AST Alkaline Phosphatase CK-MB (CK-2) CK-MB (CK-2) Rel Index Albumin TSH Urine WBC (Auto) Salicylates 01/31/17 02/01/17 02/01/17 22:59 03:38 03:38 WBC RBC 2.81 L Hgb 7.4 L Hct 22.1 L MCV 79 L MCH 27 L RDW 17.0 H Plt Count 540 H Lymph % (Auto) [place] % (Auto) Eos % (Auto) Seg Neutrophils % Seg Neuts % (Manual) Lymphocytes % (Manual) Seg Neutrophils # Seg Neutrophils # Man Lymphocytes # (Manual) APTT POC ABG pH ABG pH POC ABG pCO2 POC ABG pO2 ABG pO2 ABG HCO3 ABG Base Excess ABG Hemoglobin VBG pH Oxyhemoglobin Sodium Potassium Chloride Carbon Dioxide 21 L BUN Creatinine 0.7 L Glucose POC Glucose 40 L Lactic Acid Calcium AST Alkaline Phosphatase CK-MB (CK-2) CK-MB (CK-2) Rel Index Albumin TSH Urine WBC (Auto) Salicylates 02/01/17 02/01/17 02/01/17 05:17 12:19 16:44 WBC RBC Hgb Hct MCV MCH RDW Plt Count Lymph % (Auto) [place] % (Auto) Eos % (Auto) Seg Neutrophils % Seg Neuts % (Manual) Lymphocytes % (Manual) Seg Neutrophils # Seg Neutrophils # Man Lymphocytes # (Manual) APTT POC ABG pH ABG pH POC ABG pCO2 POC ABG pO2 ABG pO2 ABG HCO3 ABG Base Excess ABG Hemoglobin VBG pH Oxyhemoglobin Sodium Potassium Chloride Carbon Dioxide BUN Creatinine Glucose POC Glucose 140 H 213 H 172 H Lactic Acid Calcium AST Alkaline Phosphatase CK-MB (CK-2) CK-MB (CK-2) Rel Index Albumin TSH Urine WBC (Auto) Salicylates 02/01/17 02/02/17 02/02/17 23:59 05:14 11:24 WBC RBC Hgb Hct MCV MCH RDW Plt Count Lymph % (Auto) [place] % (Auto) Eos % (Auto) Seg Neutrophils % Seg Neuts % (Manual) Lymphocytes % (Manual) Seg Neutrophils # Seg Neutrophils # Man Lymphocytes # (Manual) APTT POC ABG pH ABG pH POC ABG pCO2 POC ABG pO2 ABG pO2 ABG HCO3 ABG Base Excess ABG Hemoglobin VBG pH Oxyhemoglobin Sodium Potassium Chloride Carbon Dioxide BUN Creatinine Glucose POC Glucose 181 H 194 H 209 H Lactic Acid Calcium AST Alkaline Phosphatase CK-MB (CK-2) CK-MB (CK-2) Rel Index Albumin TSH Urine WBC (Auto) Salicylates 02/02/17 02/02/17 02/02/17 11:46 11:46 17:47 WBC RBC 2.94 L Hgb 7.5 L Hct 23.0 L MCV 78 L MCH 25 L RDW 16.9 H Plt Count 520 H Lymph % (Auto) [place] % (Auto) Eos % (Auto) Seg Neutrophils % Seg Neuts % (Manual) Lymphocytes % (Manual) Seg Neutrophils # Seg Neutrophils # Man Lymphocytes # (Manual) APTT POC ABG pH ABG pH POC ABG pCO2 POC ABG pO2 ABG pO2 ABG HCO3 ABG Base Excess ABG Hemoglobin VBG pH Oxyhemoglobin Sodium Potassium Chloride Carbon Dioxide BUN Creatinine 0.6 L Glucose 189 H POC Glucose 147 H Lactic Acid Calcium 8.1 L AST Alkaline Phosphatase CK-MB (CK-2) CK-MB (CK-2) Rel Index Albumin TSH Urine WBC (Auto) Salicylates 02/02/17 02/03/17 02/03/17 23:32 05:53 11:19 WBC RBC Hgb Hct MCV MCH RDW Plt Count Lymph % (Auto) [place] % (Auto) Eos % (Auto) Seg Neutrophils % Seg Neuts % (Manual) Lymphocytes % (Manual) Seg Neutrophils # Seg Neutrophils # Man Lymphocytes # (Manual) APTT POC ABG pH ABG pH POC ABG pCO2 POC ABG pO2 ABG pO2 ABG HCO3 ABG Base Excess ABG Hemoglobin VBG pH Oxyhemoglobin Sodium Potassium Chloride Carbon Dioxide BUN Creatinine Glucose POC Glucose 176 H 224 H 228 H Lactic Acid Calcium AST Alkaline Phosphatase CK-MB (CK-2) CK-MB (CK-2) Rel Index Albumin TSH Urine WBC (Auto) Salicylates 02/03/17 02/03/17 02/04/17 16:59 23:38 05:45 WBC RBC Hgb Hct MCV MCH RDW Plt Count Lymph % (Auto) [place] % (Auto) Eos % (Auto) Seg Neutrophils % Seg Neuts % (Manual) Lymphocytes % (Manual) Seg Neutrophils # Seg Neutrophils # Man Lymphocytes # (Manual) APTT POC ABG pH ABG pH POC ABG pCO2 POC ABG pO2 ABG pO2 ABG HCO3 ABG Base Excess ABG Hemoglobin VBG pH Oxyhemoglobin Sodium Potassium Chloride Carbon Dioxide BUN Creatinine Glucose POC Glucose 189 H 191 H 251 H Lactic Acid Calcium AST Alkaline Phosphatase CK-MB (CK-2) CK-MB (CK-2) Rel Index Albumin TSH Urine WBC (Auto) Salicylates 02/04/17 02/04/17 02/05/17 11:20 17:20 00:17 WBC RBC Hgb Hct MCV MCH RDW Plt Count Lymph % (Auto) [place] % (Auto) Eos % (Auto) Seg Neutrophils % Seg Neuts % (Manual) Lymphocytes % (Manual) Seg Neutrophils # Seg Neutrophils # Man Lymphocytes # (Manual) APTT POC ABG pH ABG pH POC ABG pCO2 POC ABG pO2 ABG pO2 ABG HCO3 ABG Base Excess ABG Hemoglobin VBG pH Oxyhemoglobin Sodium Potassium Chloride Carbon Dioxide BUN Creatinine Glucose POC Glucose 243 H 163 H 200 H Lactic Acid Calcium AST Alkaline Phosphatase CK-MB (CK-2) CK-MB (CK-2) Rel Index Albumin TSH Urine WBC (Auto) Salicylates 02/05/17 02/05/17 02/05/17 05:38 12:38 16:29 WBC RBC Hgb Hct MCV MCH RDW Plt Count Lymph % (Auto) [place] % (Auto) Eos % (Auto) Seg Neutrophils % Seg Neuts % (Manual) Lymphocytes % (Manual) Seg Neutrophils # Seg Neutrophils # Man Lymphocytes # (Manual) APTT POC ABG pH ABG pH POC ABG pCO2 POC ABG pO2 ABG pO2 ABG HCO3 ABG Base Excess ABG Hemoglobin VBG pH Oxyhemoglobin Sodium Potassium Chloride Carbon Dioxide BUN Creatinine Glucose POC Glucose 248 H 241 H 257 H Lactic Acid Calcium AST Alkaline Phosphatase CK-MB (CK-2) CK-MB (CK-2) Rel Index Albumin TSH Urine WBC (Auto) Salicylates 02/05/17 02/06/17 02/06/17 23:56 05:30 11:50 WBC RBC Hgb Hct MCV MCH RDW Plt Count Lymph % (Auto) [place] % (Auto) Eos % (Auto) Seg Neutrophils % Seg Neuts % (Manual) Lymphocytes % (Manual) Seg Neutrophils # Seg Neutrophils # Man Lymphocytes # (Manual) APTT POC ABG pH ABG pH POC ABG pCO2 POC ABG pO2 ABG pO2 ABG HCO3 ABG Base Excess ABG Hemoglobin VBG pH Oxyhemoglobin Sodium Potassium Chloride Carbon Dioxide BUN Creatinine Glucose POC Glucose 258 H 120 H 254 H Lactic Acid Calcium AST Alkaline Phosphatase CK-MB (CK-2) CK-MB (CK-2) Rel Index Albumin TSH Urine WBC (Auto) Salicylates 02/06/17 02/06/17 02/07/17 17:11 23:50 05:22 WBC RBC Hgb Hct MCV MCH RDW Plt Count Lymph % (Auto) [place] % (Auto) Eos % (Auto) Seg Neutrophils % Seg Neuts % (Manual) Lymphocytes % (Manual) Seg Neutrophils # Seg Neutrophils # Man Lymphocytes # (Manual) APTT POC ABG pH ABG pH POC ABG pCO2 POC ABG pO2 ABG pO2 ABG HCO3 ABG Base Excess ABG Hemoglobin VBG pH Oxyhemoglobin Sodium Potassium Chloride Carbon Dioxide BUN Creatinine Glucose POC Glucose 149 H 240 H 258 H Lactic Acid Calcium AST Alkaline Phosphatase CK-MB (CK-2) CK-MB (CK-2) Rel Index Albumin TSH Urine WBC (Auto) Salicylates 02/07/17 02/07/17 02/07/17 11:15 18:33 23:59 WBC RBC Hgb Hct MCV MCH RDW Plt Count Lymph % (Auto) [place] % (Auto) Eos % (Auto) Seg Neutrophils % Seg Neuts % (Manual) Lymphocytes % (Manual) Seg Neutrophils # Seg Neutrophils # Man Lymphocytes # (Manual) APTT POC ABG pH ABG pH POC ABG pCO2 POC ABG pO2 ABG pO2 ABG HCO3 ABG Base Excess ABG Hemoglobin VBG pH Oxyhemoglobin Sodium Potassium Chloride Carbon Dioxide BUN Creatinine Glucose POC Glucose 239 H 176 H 186 H Lactic Acid Calcium AST Alkaline Phosphatase CK-MB (CK-2) CK-MB (CK-2) Rel Index Albumin TSH Urine WBC (Auto) Salicylates 02/08/17 02/08/17 02/08/17 06:15 11:55 16:55 WBC RBC Hgb Hct MCV MCH RDW Plt Count Lymph % (Auto) [place] % (Auto) Eos % (Auto) Seg Neutrophils % Seg Neuts % (Manual) Lymphocytes % (Manual) Seg Neutrophils # Seg Neutrophils # Man Lymphocytes # (Manual) APTT POC ABG pH ABG pH POC ABG pCO2 POC ABG pO2 ABG pO2 ABG HCO3 ABG Base Excess ABG Hemoglobin VBG pH Oxyhemoglobin Sodium Potassium Chloride Carbon Dioxide BUN Creatinine Glucose POC Glucose 195 H 129 H 246 H Lactic Acid Calcium AST Alkaline Phosphatase CK-MB (CK-2) CK-MB (CK-2) Rel Index Albumin TSH Urine WBC (Auto) Salicylates 02/08/17 02/09/17 02/09/17 23:51 05:51 07:24 WBC 14.7 H RBC 3.39 L Hgb 8.9 L Hct 26.4 L MCV 78 L MCH 26 L RDW 18.4 H Plt Count 670 H Lymph % (Auto) 11.8 L [place] % (Auto) Eos % (Auto) Seg Neutrophils % 81.2 H Seg Neuts % (Manual) Lymphocytes % (Manual) Seg Neutrophils # 11.9 H Seg Neutrophils # Man Lymphocytes # (Manual) APTT POC ABG pH ABG pH POC ABG pCO2 POC ABG pO2 ABG pO2 ABG HCO3 ABG Base Excess ABG Hemoglobin VBG pH Oxyhemoglobin Sodium Potassium Chloride Carbon Dioxide BUN Creatinine Glucose POC Glucose 262 H 295 H Lactic Acid Calcium AST Alkaline Phosphatase CK-MB (CK-2) CK-MB (CK-2) Rel Index Albumin TSH Urine WBC (Auto) Salicylates 02/09/17 02/09/17 02/09/17 07:24 12:08 18:39 WBC RBC Hgb Hct MCV MCH RDW Plt Count Lymph % (Auto) [place] % (Auto) Eos % (Auto) Seg Neutrophils % Seg Neuts % (Manual) Lymphocytes % (Manual) Seg Neutrophils # Seg Neutrophils # Man Lymphocytes # (Manual) APTT POC ABG pH ABG pH POC ABG pCO2 POC ABG pO2 ABG pO2 ABG HCO3 ABG Base Excess ABG Hemoglobin VBG pH Oxyhemoglobin Sodium Potassium Chloride 95.5 L Carbon Dioxide BUN 52 H Creatinine Glucose 277 H POC Glucose 236 H 151 H Lactic Acid Calcium AST Alkaline Phosphatase CK-MB (CK-2) CK-MB (CK-2) Rel Index Albumin TSH Urine WBC (Auto) Salicylates 02/10/17 02/10/17 02/10/17 00:01 05:44 11:21 WBC RBC Hgb Hct MCV MCH RDW Plt Count Lymph % (Auto) [place] % (Auto) Eos % (Auto) Seg Neutrophils % Seg Neuts % (Manual) Lymphocytes % (Manual) Seg Neutrophils # Seg Neutrophils # Man Lymphocytes # (Manual) APTT POC ABG pH ABG pH POC ABG pCO2 POC ABG pO2 ABG pO2 ABG HCO3 ABG Base Excess ABG Hemoglobin VBG pH Oxyhemoglobin Sodium Potassium Chloride Carbon Dioxide BUN Creatinine Glucose POC Glucose 210 H 201 H 233 H Lactic Acid Calcium AST Alkaline Phosphatase CK-MB (CK-2) CK-MB (CK-2) Rel Index Albumin TSH Urine WBC (Auto) Salicylates 02/10/17 02/10/17 02/11/17 17:29 23:56 05:24 WBC RBC Hgb Hct MCV MCH RDW Plt Count Lymph % (Auto) [place] % (Auto) Eos % (Auto) Seg Neutrophils % Seg Neuts % (Manual) Lymphocytes % (Manual) Seg Neutrophils # Seg Neutrophils # Man Lymphocytes # (Manual) APTT POC ABG pH ABG pH POC ABG pCO2 POC ABG pO2 ABG pO2 ABG HCO3 ABG Base Excess ABG Hemoglobin VBG pH Oxyhemoglobin Sodium Potassium Chloride Carbon Dioxide BUN Creatinine Glucose POC Glucose 167 H 191 H 135 H Lactic Acid Calcium AST Alkaline Phosphatase CK-MB (CK-2) CK-MB (CK-2) Rel Index Albumin TSH Urine WBC (Auto) Salicylates 02/11/17 02/11/17 02/11/17 12:25 17:03 23:59 WBC RBC Hgb Hct MCV MCH RDW Plt Count Lymph % (Auto) [place] % (Auto) Eos % (Auto) Seg Neutrophils % Seg Neuts % (Manual) Lymphocytes % (Manual) Seg Neutrophils # Seg Neutrophils # Man Lymphocytes # (Manual) APTT POC ABG pH ABG pH POC ABG pCO2 POC ABG pO2 ABG pO2 ABG HCO3 ABG Base Excess ABG Hemoglobin VBG pH Oxyhemoglobin Sodium Potassium Chloride Carbon Dioxide BUN Creatinine Glucose POC Glucose 275 H 172 H 215 H Lactic Acid Calcium AST Alkaline Phosphatase CK-MB (CK-2) CK-MB (CK-2) Rel Index Albumin TSH Urine WBC (Auto) Salicylates 02/12/17 02/12/17 02/12/17 05:39 11:33 17:55 WBC RBC Hgb Hct MCV MCH RDW Plt Count Lymph % (Auto) [place] % (Auto) Eos % (Auto) Seg Neutrophils % Seg Neuts % (Manual) Lymphocytes % (Manual) Seg Neutrophils # Seg Neutrophils # Man Lymphocytes # (Manual) APTT POC ABG pH ABG pH POC ABG pCO2 POC ABG pO2 ABG pO2 ABG HCO3 ABG Base Excess ABG Hemoglobin VBG pH Oxyhemoglobin Sodium Potassium Chloride Carbon Dioxide BUN Creatinine Glucose POC Glucose 261 H 217 H 172 H Lactic Acid Calcium AST Alkaline Phosphatase CK-MB (CK-2) CK-MB (CK-2) Rel Index Albumin TSH Urine WBC (Auto) Salicylates 02/13/17 02/13/17 02/13/17 00:25 06:46 11:26 WBC RBC Hgb Hct MCV MCH RDW Plt Count Lymph % (Auto) [place] % (Auto) Eos % (Auto) Seg Neutrophils % Seg Neuts % (Manual) Lymphocytes % (Manual) Seg Neutrophils # Seg Neutrophils # Man Lymphocytes # (Manual) APTT POC ABG pH ABG pH POC ABG pCO2 POC ABG pO2 ABG pO2 ABG HCO3 ABG Base Excess ABG Hemoglobin VBG pH Oxyhemoglobin Sodium Potassium Chloride Carbon Dioxide BUN Creatinine Glucose POC Glucose 207 H 219 H 231 H Lactic Acid Calcium AST Alkaline Phosphatase CK-MB (CK-2) CK-MB (CK-2) Rel Index Albumin TSH Urine WBC (Auto) Salicylates 02/13/17 02/13/17 02/14/17 17:12 23:44 05:44 WBC RBC Hgb Hct MCV MCH RDW Plt Count Lymph % (Auto) [place] % (Auto) Eos % (Auto) Seg Neutrophils % Seg Neuts % (Manual) Lymphocytes % (Manual) Seg Neutrophils # Seg Neutrophils # Man Lymphocytes # (Manual) APTT POC ABG pH ABG pH POC ABG pCO2 POC ABG pO2 ABG pO2 ABG HCO3 ABG Base Excess ABG Hemoglobin VBG pH Oxyhemoglobin Sodium Potassium Chloride Carbon Dioxide BUN Creatinine Glucose POC Glucose 190 H 256 H 184 H Lactic Acid Calcium AST Alkaline Phosphatase CK-MB (CK-2) CK-MB (CK-2) Rel Index Albumin TSH Urine WBC (Auto) Salicylates 02/14/17 02/14/17 02/14/17 12:21 17:57 23:18 WBC RBC Hgb Hct MCV MCH RDW Plt Count Lymph % (Auto) [place] % (Auto) Eos % (Auto) Seg Neutrophils % Seg Neuts % (Manual) Lymphocytes % (Manual) Seg Neutrophils # Seg Neutrophils # Man Lymphocytes # (Manual) APTT POC ABG pH ABG pH POC ABG pCO2 POC ABG pO2 ABG pO2 ABG HCO3 ABG Base Excess ABG Hemoglobin VBG pH Oxyhemoglobin Sodium Potassium Chloride Carbon Dioxide BUN Creatinine Glucose POC Glucose 233 H 155 H 165 H Lactic Acid Calcium AST Alkaline Phosphatase CK-MB (CK-2) CK-MB (CK-2) Rel Index Albumin TSH Urine WBC (Auto) Salicylates 02/15/17 02/15/17 02/15/17 05:33 11:45 17:20 WBC RBC Hgb Hct MCV MCH RDW Plt Count Lymph % (Auto) [place] % (Auto) Eos % (Auto) Seg Neutrophils % Seg Neuts % (Manual) Lymphocytes % (Manual) Seg Neutrophils # Seg Neutrophils # Man Lymphocytes # (Manual) APTT POC ABG pH ABG pH POC ABG pCO2 POC ABG pO2 ABG pO2 ABG HCO3 ABG Base Excess ABG Hemoglobin VBG pH Oxyhemoglobin Sodium Potassium Chloride Carbon Dioxide BUN Creatinine Glucose POC Glucose 239 H 130 H 189 H Lactic Acid Calcium AST Alkaline Phosphatase CK-MB (CK-2) CK-MB (CK-2) Rel Index Albumin TSH Urine WBC (Auto) Salicylates 02/16/17 02/16/17 02/16/17 00:14 05:09 12:31 WBC RBC Hgb Hct MCV MCH RDW Plt Count Lymph % (Auto) [place] % (Auto) Eos % (Auto) Seg Neutrophils % Seg Neuts % (Manual) Lymphocytes % (Manual) Seg Neutrophils # Seg Neutrophils # Man Lymphocytes # (Manual) APTT POC ABG pH ABG pH POC ABG pCO2 POC ABG pO2 ABG pO2 ABG HCO3 ABG Base Excess ABG Hemoglobin VBG pH Oxyhemoglobin Sodium Potassium Chloride Carbon Dioxide BUN Creatinine Glucose POC Glucose 197 H 226 H 178 H Lactic Acid Calcium AST Alkaline Phosphatase CK-MB (CK-2) CK-MB (CK-2) Rel Index Albumin TSH Urine WBC (Auto) Salicylates 02/16/17 02/16/17 02/17/17 16:35 23:49 05:37 WBC RBC Hgb Hct MCV MCH RDW Plt Count Lymph % (Auto) [place] % (Auto) Eos % (Auto) Seg Neutrophils % Seg Neuts % (Manual) Lymphocytes % (Manual) Seg Neutrophils # Seg Neutrophils # Man Lymphocytes # (Manual) APTT POC ABG pH ABG pH POC ABG pCO2 POC ABG pO2 ABG pO2 ABG HCO3 ABG Base Excess ABG Hemoglobin VBG pH Oxyhemoglobin Sodium Potassium Chloride Carbon Dioxide BUN Creatinine Glucose POC Glucose 174 H 62 L 153 H Lactic Acid Calcium AST Alkaline Phosphatase CK-MB (CK-2) CK-MB (CK-2) Rel Index Albumin TSH Urine WBC (Auto) Salicylates 02/17/17 02/17/17 02/17/17 11:39 17:02 22:24 WBC RBC Hgb Hct MCV MCH RDW Plt Count Lymph % (Auto) [place] % (Auto) Eos % (Auto) Seg Neutrophils % Seg Neuts % (Manual) Lymphocytes % (Manual) Seg Neutrophils # Seg Neutrophils # Man Lymphocytes # (Manual) APTT POC ABG pH ABG pH POC ABG pCO2 POC ABG pO2 ABG pO2 ABG HCO3 ABG Base Excess ABG Hemoglobin VBG pH Oxyhemoglobin Sodium Potassium Chloride Carbon Dioxide BUN Creatinine Glucose POC Glucose 231 H 112 H 116 H Lactic Acid Calcium AST Alkaline Phosphatase CK-MB (CK-2) CK-MB (CK-2) Rel Index Albumin TSH Urine WBC (Auto) Salicylates 02/18/17 02/19/17 02/19/17 15:34 05:09 07:57 WBC RBC Hgb Hct MCV MCH RDW Plt Count Lymph % (Auto) [place] % (Auto) Eos % (Auto) Seg Neutrophils % Seg Neuts % (Manual) Lymphocytes % (Manual) Seg Neutrophils # Seg Neutrophils # Man Lymphocytes # (Manual) APTT POC ABG pH ABG pH POC ABG pCO2 POC ABG pO2 ABG pO2 ABG HCO3 ABG Base Excess ABG Hemoglobin VBG pH Oxyhemoglobin Sodium Potassium Chloride Carbon Dioxide BUN Creatinine Glucose POC Glucose 215 H 218 H 283 H Lactic Acid Calcium AST Alkaline Phosphatase CK-MB (CK-2) CK-MB (CK-2) Rel Index Albumin TSH Urine WBC (Auto) Salicylates 02/19/17 02/19/17 02/20/17 14:49 22:10 05:10 WBC RBC Hgb Hct MCV MCH RDW Plt Count Lymph % (Auto) [place] % (Auto) Eos % (Auto) Seg Neutrophils % Seg Neuts % (Manual) Lymphocytes % (Manual) Seg Neutrophils # Seg Neutrophils # Man Lymphocytes # (Manual) APTT POC ABG pH ABG pH POC ABG pCO2 POC ABG pO2 ABG pO2 ABG HCO3 ABG Base Excess ABG Hemoglobin VBG pH Oxyhemoglobin Sodium Potassium Chloride Carbon Dioxide BUN Creatinine Glucose POC Glucose 290 H 169 H 209 H Lactic Acid Calcium AST Alkaline Phosphatase CK-MB (CK-2) CK-MB (CK-2) Rel Index Albumin TSH Urine WBC (Auto) Salicylates 02/20/17 02/20/17 02/21/17 15:05 21:52 02:00 WBC RBC Hgb Hct MCV MCH RDW Plt Count Lymph % (Auto) [place] % (Auto) Eos % (Auto) Seg Neutrophils % Seg Neuts % (Manual) Lymphocytes % (Manual) Seg Neutrophils # Seg Neutrophils # Man Lymphocytes # (Manual) APTT POC ABG pH ABG pH POC ABG pCO2 POC ABG pO2 ABG pO2 ABG HCO3 ABG Base Excess ABG Hemoglobin VBG pH Oxyhemoglobin Sodium Potassium Chloride Carbon Dioxide BUN Creatinine Glucose POC Glucose 172 H 209 H 216 H Lactic Acid Calcium AST Alkaline Phosphatase CK-MB (CK-2) CK-MB (CK-2) Rel Index Albumin TSH Urine WBC (Auto) Salicylates 02/21/17 02/21/17 02/21/17 04:54 14:43 17:47 WBC RBC Hgb Hct MCV MCH RDW Plt Count Lymph % (Auto) [place] % (Auto) Eos % (Auto) Seg Neutrophils % Seg Neuts % (Manual) Lymphocytes % (Manual) Seg Neutrophils # Seg Neutrophils # Man Lymphocytes # (Manual) APTT POC ABG pH ABG pH POC ABG pCO2 POC ABG pO2 ABG pO2 ABG HCO3 ABG Base Excess ABG Hemoglobin VBG pH Oxyhemoglobin Sodium Potassium Chloride Carbon Dioxide BUN Creatinine Glucose POC Glucose 227 H 290 H 220 H Lactic Acid Calcium AST Alkaline Phosphatase CK-MB (CK-2) CK-MB (CK-2) Rel Index Albumin TSH Urine WBC (Auto) Salicylates 02/21/17 02/22/17 02/22/17 22:02 04:52 15:25 WBC RBC Hgb Hct MCV MCH RDW Plt Count Lymph % (Auto) [place] % (Auto) Eos % (Auto) Seg Neutrophils % Seg Neuts % (Manual) Lymphocytes % (Manual) Seg Neutrophils # Seg Neutrophils # Man Lymphocytes # (Manual) APTT POC ABG pH ABG pH POC ABG pCO2 POC ABG pO2 ABG pO2 ABG HCO3 ABG Base Excess ABG Hemoglobin VBG pH Oxyhemoglobin Sodium Potassium Chloride Carbon Dioxide BUN Creatinine Glucose POC Glucose 246 H 212 H 236 H Lactic Acid Calcium AST Alkaline Phosphatase CK-MB (CK-2) CK-MB (CK-2) Rel Index Albumin TSH Urine WBC (Auto) Salicylates 02/22/17 02/23/17 02/23/17 21:33 06:04 10:00 WBC RBC Hgb Hct MCV MCH RDW Plt Count Lymph % (Auto) [place] % (Auto) Eos % (Auto) Seg Neutrophils % Seg Neuts % (Manual) Lymphocytes % (Manual) Seg Neutrophils # Seg Neutrophils # Man Lymphocytes # (Manual) APTT POC ABG pH ABG pH POC ABG pCO2 POC ABG pO2 ABG pO2 ABG HCO3 ABG Base Excess ABG Hemoglobin VBG pH Oxyhemoglobin Sodium Potassium Chloride Carbon Dioxide BUN Creatinine Glucose POC Glucose 255 H 208 H 174 H Lactic Acid Calcium AST Alkaline Phosphatase CK-MB (CK-2) CK-MB (CK-2) Rel Index Albumin TSH Urine WBC (Auto) Salicylates 02/23/17 02/23/17 02/23/17 12:52 17:15 21:51 WBC RBC Hgb Hct MCV MCH RDW Plt Count Lymph % (Auto) [place] % (Auto) Eos % (Auto) Seg Neutrophils % Seg Neuts % (Manual) Lymphocytes % (Manual) Seg Neutrophils # Seg Neutrophils # Man Lymphocytes # (Manual) APTT POC ABG pH ABG pH POC ABG pCO2 POC ABG pO2 ABG pO2 ABG HCO3 ABG Base Excess ABG Hemoglobin VBG pH Oxyhemoglobin Sodium Potassium Chloride Carbon Dioxide BUN Creatinine Glucose POC Glucose 203 H 269 H 205 H Lactic Acid Calcium AST Alkaline Phosphatase CK-MB (CK-2) CK-MB (CK-2) Rel Index Albumin TSH Urine WBC (Auto) Salicylates 02/24/17 02/24/17 02/24/17 10:23 17:45 21:24 WBC RBC Hgb Hct MCV MCH RDW Plt Count Lymph % (Auto) [place] % (Auto) Eos % (Auto) Seg Neutrophils % Seg Neuts % (Manual) Lymphocytes % (Manual) Seg Neutrophils # Seg Neutrophils # Man Lymphocytes # (Manual) APTT POC ABG pH ABG pH POC ABG pCO2 POC ABG pO2 ABG pO2 ABG HCO3 ABG Base Excess ABG Hemoglobin VBG pH Oxyhemoglobin Sodium Potassium Chloride Carbon Dioxide BUN Creatinine Glucose POC Glucose 280 H 239 H 254 H Lactic Acid Calcium AST Alkaline Phosphatase CK-MB (CK-2) CK-MB (CK-2) Rel Index Albumin TSH Urine WBC (Auto) Salicylates 02/25/17 02/25/17 02/25/17 02:12 05:17 14:32 WBC RBC Hgb Hct MCV MCH RDW Plt Count Lymph % (Auto) [place] % (Auto) Eos % (Auto) Seg Neutrophils % Seg Neuts % (Manual) Lymphocytes % (Manual) Seg Neutrophils # Seg Neutrophils # Man Lymphocytes # (Manual) APTT POC ABG pH ABG pH POC ABG pCO2 POC ABG pO2 ABG pO2 ABG HCO3 ABG Base Excess ABG Hemoglobin VBG pH Oxyhemoglobin Sodium Potassium Chloride Carbon Dioxide BUN Creatinine Glucose POC Glucose 296 H 332 H 353 H Lactic Acid Calcium AST Alkaline Phosphatase CK-MB (CK-2) CK-MB (CK-2) Rel Index Albumin TSH Urine WBC (Auto) Salicylates 02/25/17 02/26/17 02/26/17 22:14 00:37 05:52 WBC RBC Hgb Hct MCV MCH RDW Plt Count Lymph % (Auto) [place] % (Auto) Eos % (Auto) Seg Neutrophils % Seg Neuts % (Manual) Lymphocytes % (Manual) Seg Neutrophils # Seg Neutrophils # Man Lymphocytes # (Manual) APTT POC ABG pH ABG pH POC ABG pCO2 POC ABG pO2 ABG pO2 ABG HCO3 ABG Base Excess ABG Hemoglobin VBG pH Oxyhemoglobin Sodium Potassium Chloride Carbon Dioxide BUN Creatinine Glucose POC Glucose 201 H 233 H 269 H Lactic Acid Calcium AST Alkaline Phosphatase CK-MB (CK-2) CK-MB (CK-2) Rel Index Albumin TSH Urine WBC (Auto) Salicylates 02/26/17 02/26/17 02/26/17 11:48 13:49 21:26 WBC RBC Hgb Hct MCV MCH RDW Plt Count Lymph % (Auto) [place] % (Auto) Eos % (Auto) Seg Neutrophils % Seg Neuts % (Manual) Lymphocytes % (Manual) Seg Neutrophils # Seg Neutrophils # Man Lymphocytes # (Manual) APTT POC ABG pH ABG pH POC ABG pCO2 POC ABG pO2 ABG pO2 ABG HCO3 ABG Base Excess ABG Hemoglobin VBG pH Oxyhemoglobin Sodium Potassium Chloride Carbon Dioxide BUN Creatinine Glucose POC Glucose 333 H 322 H 244 H Lactic Acid Calcium AST Alkaline Phosphatase CK-MB (CK-2) CK-MB (CK-2) Rel Index Albumin TSH Urine WBC (Auto) Salicylates 02/27/17 02/27/17 02/27/17 05:27 13:51 21:48 WBC RBC Hgb Hct MCV MCH RDW Plt Count Lymph % (Auto) [place] % (Auto) Eos % (Auto) Seg Neutrophils % Seg Neuts % (Manual) Lymphocytes % (Manual) Seg Neutrophils # Seg Neutrophils # Man Lymphocytes # (Manual) APTT POC ABG pH ABG pH POC ABG pCO2 POC ABG pO2 ABG pO2 ABG HCO3 ABG Base Excess ABG Hemoglobin VBG pH Oxyhemoglobin Sodium Potassium Chloride Carbon Dioxide BUN Creatinine Glucose POC Glucose 217 H 239 H 254 H Lactic Acid Calcium AST Alkaline Phosphatase CK-MB (CK-2) CK-MB (CK-2) Rel Index Albumin TSH Urine WBC (Auto) Salicylates 02/28/17 02/28/17 02/28/17 05:38 11:00 19:44 WBC RBC Hgb Hct MCV MCH RDW Plt Count Lymph % (Auto) [place] % (Auto) Eos % (Auto) Seg Neutrophils % Seg Neuts % (Manual) Lymphocytes % (Manual) Seg Neutrophils # Seg Neutrophils # Man Lymphocytes # (Manual) APTT POC ABG pH ABG pH POC ABG pCO2 POC ABG pO2 ABG pO2 ABG HCO3 ABG Base Excess ABG Hemoglobin VBG pH Oxyhemoglobin Sodium Potassium Chloride Carbon Dioxide BUN Creatinine Glucose POC Glucose 325 H 203 H 116 H Lactic Acid Calcium AST Alkaline Phosphatase CK-MB (CK-2) CK-MB (CK-2) Rel Index Albumin TSH Urine WBC (Auto) Salicylates 03/01/17 03/01/17 03/01/17 00:08 05:31 12:17 WBC RBC Hgb Hct MCV MCH RDW Plt Count Lymph % (Auto) [place] % (Auto) Eos % (Auto) Seg Neutrophils % Seg Neuts % (Manual) Lymphocytes % (Manual) Seg Neutrophils # Seg Neutrophils # Man Lymphocytes # (Manual) APTT POC ABG pH ABG pH POC ABG pCO2 POC ABG pO2 ABG pO2 ABG HCO3 ABG Base Excess ABG Hemoglobin VBG pH Oxyhemoglobin Sodium Potassium Chloride Carbon Dioxide BUN Creatinine Glucose POC Glucose 202 H 183 H 184 H Lactic Acid Calcium AST Alkaline Phosphatase CK-MB (CK-2) CK-MB (CK-2) Rel Index Albumin TSH Urine WBC (Auto) Salicylates 03/02/17 03/02/17 03/02/17 00:12 05:58 18:22 WBC RBC Hgb Hct MCV MCH RDW Plt Count Lymph % (Auto) [place] % (Auto) Eos % (Auto) Seg Neutrophils % Seg Neuts % (Manual) Lymphocytes % (Manual) Seg Neutrophils # Seg Neutrophils # Man Lymphocytes # (Manual) APTT POC ABG pH ABG pH POC ABG pCO2 POC ABG pO2 ABG pO2 ABG HCO3 ABG Base Excess ABG Hemoglobin VBG pH Oxyhemoglobin Sodium Potassium Chloride Carbon Dioxide BUN Creatinine Glucose POC Glucose 117 H 176 H 156 H Lactic Acid Calcium AST Alkaline Phosphatase CK-MB (CK-2) CK-MB (CK-2) Rel Index Albumin TSH Urine WBC (Auto) Salicylates 03/02/17 03/03/17 03/03/17 23:51 05:44 11:32 WBC RBC Hgb Hct MCV MCH RDW Plt Count Lymph % (Auto) [place] % (Auto) Eos % (Auto) Seg Neutrophils % Seg Neuts % (Manual) Lymphocytes % (Manual) Seg Neutrophils # Seg Neutrophils # Man Lymphocytes # (Manual) APTT POC ABG pH ABG pH POC ABG pCO2 POC ABG pO2 ABG pO2 ABG HCO3 ABG Base Excess ABG Hemoglobin VBG pH Oxyhemoglobin Sodium Potassium Chloride Carbon Dioxide BUN Creatinine Glucose POC Glucose 211 H 117 H 133 H Lactic Acid Calcium AST Alkaline Phosphatase CK-MB (CK-2) CK-MB (CK-2) Rel Index Albumin TSH Urine WBC (Auto) Salicylates 03/03/17 03/03/17 03/04/17 17:43 23:17 05:30 WBC RBC Hgb Hct MCV MCH RDW Plt Count Lymph % (Auto) [place] % (Auto) Eos % (Auto) Seg Neutrophils % Seg Neuts % (Manual) Lymphocytes % (Manual) Seg Neutrophils # Seg Neutrophils # Man Lymphocytes # (Manual) APTT POC ABG pH ABG pH POC ABG pCO2 POC ABG pO2 ABG pO2 ABG HCO3 ABG Base Excess ABG Hemoglobin VBG pH Oxyhemoglobin Sodium Potassium Chloride Carbon Dioxide BUN Creatinine Glucose POC Glucose 206 H 170 H 126 H Lactic Acid Calcium AST Alkaline Phosphatase CK-MB (CK-2) CK-MB (CK-2) Rel Index Albumin TSH Urine WBC (Auto) Salicylates
--- NOTE | 2017-03-04 09:31 | Progress Note ---
Assessment and Plan Assessment and plan: Hypoglycemic brain injury. Patient was found hypoglycemic. He is now in coma, vegetative state, Unresponsive Persistent vegetative state. Supportive care Metabolic encephalopathy due to hypoglycemia Hypoglycemia/hypothermia, resolved Acute respiratory failure. Intubated, on ventilator. Hyponatremia. Now resolved. Hypothyroidism Diabetes mellitus type 2. Check fingerstick glucose q 6h. Continue Levemir subcut daily Hypertension. BP stable Leukocytosis due to UTI. UTI with ESBL. Patient is DNR- awaiting hospice placement, needs guardianship from the state to give consent, as has no family to give consent History Interval history: Patient found unresponsive, diagnosed with hypoglycemia with brain injury, Still unresponsive, Hospitalist Physical - Physical exam Narrative exam: Gen Appearance: Not in acute distress, malnourished, intubated HEENT: normocephalic, atraumatic Neck: supple, no JVD Lungs: clear to auscultation bilaterally, no crackles or wheezes Heart: S1 and S2 regular, no murmurs, rubs or gallop Abdomen: Soft , non tender, non distended, normal bowel sounds Extremity: No edema, clubbing or cyanosis Neuro : Intubated, Unresponsive, vegetative state - Constitutional Vitals: Temp Pulse Resp BP Pulse Ox 98.8 F 78 12 117/78 100 03/04/17 07:57 03/04/17 09:17 03/04/17 06:00 03/04/17 09:17 03/04/17 09:17 General appearance: Present: no acute distress, well-nourished Results - Labs CBC & Chem 7: 02/09/17 07:24 02/09/17 07:24 Labs: Laboratory Last Values WBC 14.7 K/mm3 (4.5-11.0) H 02/09/17 07:24 RBC 3.39 M/mm3 (3.65-5.03) L 02/09/17 07:24 Hgb 8.9 gm/dl (11.8-15.2) L 02/09/17 07:24 Hct 26.4 % (35.5-45.6) L 02/09/17 07:24 MCV 78 fl (84-94) L 02/09/17 07:24 MCH 26 pg (28-32) L 02/09/17 07:24 MCHC 34 % (32-34) 02/09/17 07:24 RDW 18.4 % (13.2-15.2) H 02/09/17 07:24 Plt Count 670 K/mm3 (140-440) H 02/09/17 07:24 Lymph % (Auto) 11.8 % (13.4-35.0) L 02/09/17 07:24 [place] % (Auto) 4.7 % (0.0-7.3) 02/09/17 07:24 Eos % (Auto) 1.9 % (0.0-4.3) 02/09/17 07:24 Baso % (Auto) 0.4 % (0.0-1.8) 02/09/17 07:24 Lymph # 1.7 K/mm3 (1.2-5.4) 02/09/17 07:24 Cloud # 0.7 K/mm3 (0.0-0.8) 02/09/17 07:24 Eos # 0.3 K/mm3 (0.0-0.4) 02/09/17 07:24 Baso # 0.1 K/mm3 (0.0-0.1) 02/09/17 07:24 Add Manual Diff Complete 01/10/17 04:30 Total Counted 100 01/10/17 04:30 Seg Neutrophils % 81.2 % (40.0-70.0) H 02/09/17 07:24 Seg Neuts % (Manual) 88.0 % (40.0-70.0) H 01/10/17 04:30 Band Neutrophils % 7.0 % 01/10/17 04:30 Lymphocytes % (Manual) 4.0 % (13.4-35.0) L 01/10/17 04:30 Reactive Lymphs % (Man) 0 % 01/10/17 04:30 Monocytes % (Manual) 1.0 % (0.0-7.3) 01/10/17 04:30 Eosinophils % (Manual) 0 % (0.0-4.3) 01/10/17 04:30 Basophils % (Manual) 0 % (0.0-1.8) 01/10/17 04:30 Metamyelocytes % 0 % 01/10/17 04:30 Myelocytes % 0 % 01/10/17 04:30 Promyelocytes % 0 % 01/10/17 04:30 Blast Cells % 0 % 01/10/17 04:30 Nucleated RBC % Not Reportable 01/10/17 04:30 Seg Neutrophils # 11.9 K/mm3 (1.8-7.7) H 02/09/17 07:24 Seg Neutrophils # Man 21.2 K/mm3 (1.8-7.7) H 01/10/17 04:30 Band Neutrophils # 1.7 K/mm3 01/10/17 04:30 Lymphocytes # (Manual) 1.0 K/mm3 (1.2-5.4) L 01/10/17 04:30 Abs React Lymphs (Man) 0.0 K/mm3 01/10/17 04:30 Monocytes # (Manual) 0.2 K/mm3 (0.0-0.8) 01/10/17 04:30 Eosinophils # (Manual) 0.0 K/mm3 (0.0-0.4) 01/10/17 04:30 Basophils # (Manual) 0.0 K/mm3 (0.0-0.1) 01/10/17 04:30 Metamyelocytes # 0.0 K/mm3 01/10/17 04:30 Myelocytes # 0.0 K/mm3 01/10/17 04:30 Promyelocytes # 0.0 K/mm3 01/10/17 04:30 Blast Cells # 0.0 K/mm3 01/10/17 04:30 WBC Morphology Not Reportable 01/10/17 04:30 Hypersegmented Neuts Not Reportable 01/10/17 04:30 Hyposegmented Neuts Not Reportable 01/10/17 04:30 Hypogranular Neuts Not Reportable 01/10/17 04:30 Smudge Cells Not Reportable 01/10/17 04:30 Toxic Granulation Not Reportable 01/10/17 04:30 Toxic Vacuolation Not Reportable 01/10/17 04:30 Dohle Bodies Not Reportable 01/10/17 04:30 Pelger-Huet Anomaly Not Reportable 01/10/17 04:30 [place] Rods Not Reportable 01/10/17 04:30 Platelet Estimate Consistent w auto 01/10/17 04:30 Clumped Platelets Not Reportable 01/10/17 04:30 Plt Clumps, EDTA Not Reportable 01/10/17 04:30 Large Platelets Not Reportable 01/10/17 04:30 Giant Platelets Not Reportable 01/10/17 04:30 Platelet Satelliting Not Reportable 01/10/17 04:30 Plt Morphology Comment Not Reportable 01/10/17 04:30 RBC Morphology Not Reportable 01/10/17 04:30 Dimorphic RBCs Not Reportable 01/10/17 04:30 Polychromasia Not Reportable 01/10/17 04:30 Hypochromasia 1+ 01/10/17 04:30 Poikilocytosis Not Reportable 01/10/17 04:30 Anisocytosis Not Reportable 01/10/17 04:30 Microcytosis Not Reportable 01/10/17 04:30 Macrocytosis Not Reportable 01/10/17 04:30 Spherocytes Not Reportable 01/10/17 04:30 Pappenheimer Bodies Not Reportable 01/10/17 04:30 Sickle Cells Not Reportable 01/10/17 04:30 Target Cells Not Reportable 01/10/17 04:30 Tear Drop Cells Not Reportable 01/10/17 04:30 Ovalocytes Not Reportable 01/10/17 04:30 Helmet Cells Not Reportable 01/10/17 04:30 [employer] Bodies Not Reportable 01/10/17 04:30 [place] Rings Not Reportable 01/10/17 04:30 Jessica Cells Not Reportable 01/10/17 04:30 Bite Cells Not Reportable 01/10/17 04:30 Crenated Cell Not Reportable 01/10/17 04:30 Elliptocytes Not Reportable 01/10/17 04:30 Acanthocytes (Spur) Not Reportable 01/10/17 04:30 Rouleaux Not Reportable 01/10/17 04:30 Hemoglobin C Crystals Not Reportable 01/10/17 04:30 Schistocytes Not Reportable 01/10/17 04:30 Malaria parasites Not Reportable 01/10/17 04:30 Kyle Bodies Not Reportable 01/10/17 04:30 Hem Pathologist Commnt No 01/10/17 04:30 PT 14.1 Sec. (12.2-14.9) 01/17/17 04:10 INR 1.04 (0.87-1.13) 01/17/17 04:10 APTT 36.6 Sec. (24.2-36.6) 01/17/17 04:10 POC ABG pH 7.442 (7.35-7.45) 01/31/17 18:55 ABG pH 7.420 pH Units (7.350-7.450) 01/17/17 04:35 POC ABG pCO2 32.8 (35-45) L 01/31/17 18:55 ABG pCO2 34.5 mm Hg 01/17/17 04:35 POC ABG pO2 82 (80-105) 01/31/17 18:55 ABG pO2 160.3 mm Hg (80.0-90.0) H 01/17/17 04:35 POC ABG HCO3 22.4 01/31/17 18:55 ABG HCO3 21.9 mmol/L (20.0-26.0) 01/17/17 04:35 POC ABG Total CO2 23 01/31/17 18:55 POC ABG O2 Sat 97 01/31/17 18:55 ABG O2 Saturation 99.0 % (95.0-99.0) 01/17/17 04:35 ABG O2 Content 11.1 (0.0-44) 01/17/17 04:35 POC ABG Base Excess -2 01/31/17 18:55 ABG Base Excess -2.3 mmol/L (-2.0-3.0) L 01/17/17 04:35 ABG Hemoglobin 7.9 gm/dl (14.0-18.0) L 01/17/17 04:35 ABG Carboxyhemoglobin 1.5 % (0.0-5.0) 01/17/17 04:35 ABG Methemoglobin 0.5 % (0.0-1.5) 01/17/17 04:35 VBG pH 7.284 (7.320-7.420) L 01/09/17 10:16 Oxyhemoglobin 97.1 % (95.0-99.0) 01/17/17 04:35 FiO2 25 % 01/31/17 18:55 Sodium 137 mmol/L (137-145) 02/09/17 07:24 Potassium 4.9 mmol/L (3.6-5.0) 02/09/17 07:24 Chloride 95.5 mmol/L (98-107) L 02/09/17 07:24 Carbon Dioxide 29 mmol/L (22-30) 02/09/17 07:24 Anion Gap 17 mmol/L 02/09/17 07:24 BUN 52 mg/dL (9-20) H 02/09/17 07:24 Creatinine 0.8 mg/dL (0.8-1.5) 02/09/17 07:24 Estimated GFR > 60 ml/min 02/09/17 07:24 BUN/Creatinine Ratio 65 % 02/09/17 07:24 Glucose 277 mg/dL (75-100) H 02/09/17 07:24 POC Glucose 126 (70-105) H 03/04/17 05:30 Lactic Acid 0.80 mmol/L (0.7-2.0) 01/30/17 11:49 Calcium 9.4 mg/dL (8.4-10.2) 02/09/17 07:24 Phosphorus 3.60 mg/dL (2.5-4.5) 01/22/17 04:00 Magnesium 2.10 mg/dL (1.7-2.3) 01/22/17 04:00 Total Bilirubin 0.30 mg/dL (0.1-1.2) 01/22/17 04:00 AST 44 units/L (5-40) H 01/22/17 04:00 ALT 23 units/L (7-56) 01/22/17 04:00 Alkaline Phosphatase 379 units/L (35-129) H 01/22/17 04:00 Ammonia 35.0 umol/L (25-60) 01/09/17 10:16 Total Creatine Kinase 135 units/L (55-170) 01/09/17 10:16 CK-MB (CK-2) 7.1 ng/mL (0.0-4.0) H 01/09/17 10:16 CK-MB (CK-2) Rel Index 5.2 (0-4) H 01/09/17 10:16 Troponin T < 0.010 ng/mL (0.00-0.029) 01/09/17 10:16 NT-Pro-B Natriuret Pep 602.9 pg/mL (0-900) 01/09/17 10:16 Total Protein 7.9 g/dL (6.3-8.2) 01/22/17 04:00 Albumin 2.7 g/dL (3.9-5) L 01/22/17 04:00 Albumin/Globulin Ratio 0.5 % 01/22/17 04:00 TSH 52.800 mlU/mL (0.270-4.200) H 01/09/17 10:16 Free T4 0.78 ng/dL (0.76-1.46) 01/09/17 10:16 Total Cortisol 54.8 mcg/dL () 01/09/17 16:19 Urine Color Yellow (Yellow) 01/28/17 17:52 Urine Turbidity Clear (Clear) 01/28/17 17:52 Urine pH 6.0 (5.0-7.0) 01/28/17 17:52 Ur Specific [place] 1.016 (1.003-1.030) 01/28/17 17:52 Urine Protein 100 mg/dl mg/dL (Negative) 01/28/17 17:52 Urine Glucose (UA) >=500 mg/dL (Negative) 01/28/17 17:52 Urine Ketones Neg mg/dL (Negative) 01/28/17 17:52 Urine Blood Sm (Negative) 01/28/17 17:52 Urine Nitrite Neg (Negative) 01/28/17 17:52 Urine Bilirubin Neg (Negative) 01/28/17 17:52 Urine Urobilinogen < 2.0 mg/dL (<2.0) 01/28/17 17:52 Ur Leukocyte Esterase Lg (Negative) 01/28/17 17:52 Urine WBC (Auto) > 182.0 /HPF (0.0-6.0) H 01/28/17 17:52 Urine RBC (Auto) 113.0 /HPF (0.0-6.0) 01/28/17 17:52 Urine Bacteria (Auto) 2+ /HPF (Negative) 01/28/17 17:52 Urine WBC Clumps 3+ /HPF 01/28/17 17:52 Urine Mucus Few /HPF 01/14/17 14:07 Urine Yeast (Budding) 3+ /HPF 01/14/17 14:07 Salicylates < 0.3 mg/dL (2.8-20.0) L 01/09/17 10:16 Urine Opiates Screen Presumptive negative 01/09/17 10:23 Urine Methadone Screen Presumptive negative 01/09/17 10:23 Acetaminophen < 15.0 ug/mL (10.0-30.0) 01/09/17 10:16 Ur Barbiturates Screen Presumptive negative 01/09/17 10:23 Ur Phencyclidine Scrn Presumptive negative 01/09/17 10:23 Ur Amphetamines Screen Presumptive negative 01/09/17 10:23 U Benzodiazepines Scrn Presumptive negative 01/09/17 10:23 Urine Cocaine Screen Presumptive negative 01/09/17 10:23 U Marijuana (THC) Screen Presumptive negative 01/09/17 10:23 Drugs of Abuse Note Disclamer 01/09/17 10:23 Plasma/Serum Alcohol < 0.01 gm% (0-0.07) 01/09/17 10:16
[2017-03-04] MEDS: HEPARIN SUB-Q SCH ×2 (10:33→22:14)
[2017-03-04] MEDS: PEPCID PO SCH ×2 (10:34→22:14)
[2017-03-04] MEDS: LEVEMIR (NF) SUB-Q SCH (10:34)
[2017-03-04] MEDS: IMODIUM PO PRN (12:35)
[2017-03-05] MEDS: SYNTHROID PO SCH (06:41)
[2017-03-05] MEDS: HumuLIN R SUB-Q SCH ×4 (06:43→18:52)
--- NOTE | 2017-03-05 08:39 | Progress Note ---
Assessment and Plan Assessment and plan: Hypoglycemic brain injury. Patient was found hypoglycemic. He is now in coma, vegetative state, Unresponsive Persistent vegetative state. Supportive care Metabolic encephalopathy due to hypoglycemia Hypoglycemia/hypothermia, resolved Acute respiratory failure. Intubated, on ventilator. Hyponatremia. Now resolved. Hypothyroidism Diabetes mellitus type 2. Check fingerstick glucose q 6h. Continue Levemir subcut daily Hypertension. BP stable Leukocytosis due to UTI. UTI with ESBL. Patient is DNR- awaiting hospice placement, needs guardianship from the state to give consent, as has no family to give consent History Interval history: Patient found unresponsive, diagnosed with hypoglycemia with brain injury, Still unresponsive, Hospitalist Physical - Physical exam Narrative exam: Gen Appearance: Not in acute distress, malnourished, intubated HEENT: normocephalic, atraumatic Neck: supple, no JVD Lungs: clear to auscultation bilaterally, no crackles or wheezes Heart: S1 and S2 regular, no murmurs, rubs or gallop Abdomen: Soft , non tender, non distended, normal bowel sounds Extremity: No edema, clubbing or cyanosis Neuro : Intubated, Unresponsive, vegetative state - Constitutional Vitals: Temp Pulse Resp BP Pulse Ox 99.1 F 79 15 120/78 97 03/05/17 07:55 03/05/17 08:09 03/05/17 08:09 03/05/17 06:00 03/05/17 08:09 General appearance: Present: no acute distress, well-nourished Results - Labs CBC & Chem 7: 02/09/17 07:24 02/09/17 07:24 Labs: Laboratory Last Values WBC 14.7 K/mm3 (4.5-11.0) H 02/09/17 07:24 RBC 3.39 M/mm3 (3.65-5.03) L 02/09/17 07:24 Hgb 8.9 gm/dl (11.8-15.2) L 02/09/17 07:24 Hct 26.4 % (35.5-45.6) L 02/09/17 07:24 MCV 78 fl (84-94) L 02/09/17 07:24 MCH 26 pg (28-32) L 02/09/17 07:24 MCHC 34 % (32-34) 02/09/17 07:24 RDW 18.4 % (13.2-15.2) H 02/09/17 07:24 Plt Count 670 K/mm3 (140-440) H 02/09/17 07:24 Lymph % (Auto) 11.8 % (13.4-35.0) L 02/09/17 07:24 [place] % (Auto) 4.7 % (0.0-7.3) 02/09/17 07:24 Eos % (Auto) 1.9 % (0.0-4.3) 02/09/17 07:24 Baso % (Auto) 0.4 % (0.0-1.8) 02/09/17 07:24 Lymph # 1.7 K/mm3 (1.2-5.4) 02/09/17 07:24 [place] # 0.7 K/mm3 (0.0-0.8) 02/09/17 07:24 Eos # 0.3 K/mm3 (0.0-0.4) 02/09/17 07:24 Baso # 0.1 K/mm3 (0.0-0.1) 02/09/17 07:24 Add Manual Diff Complete 01/10/17 04:30 Total Counted 100 01/10/17 04:30 Seg Neutrophils % 81.2 % (40.0-70.0) H 02/09/17 07:24 Seg Neuts % (Manual) 88.0 % (40.0-70.0) H 01/10/17 04:30 Band Neutrophils % 7.0 % 01/10/17 04:30 Lymphocytes % (Manual) 4.0 % (13.4-35.0) L 01/10/17 04:30 Reactive Lymphs % (Man) 0 % 01/10/17 04:30 Monocytes % (Manual) 1.0 % (0.0-7.3) 01/10/17 04:30 Eosinophils % (Manual) 0 % (0.0-4.3) 01/10/17 04:30 Basophils % (Manual) 0 % (0.0-1.8) 01/10/17 04:30 Metamyelocytes % 0 % 01/10/17 04:30 Myelocytes % 0 % 01/10/17 04:30 Promyelocytes % 0 % 01/10/17 04:30 Blast Cells % 0 % 01/10/17 04:30 Nucleated RBC % Not Reportable 01/10/17 04:30 Seg Neutrophils # 11.9 K/mm3 (1.8-7.7) H 02/09/17 07:24 Seg Neutrophils # Man 21.2 K/mm3 (1.8-7.7) H 01/10/17 04:30 Band Neutrophils # 1.7 K/mm3 01/10/17 04:30 Lymphocytes # (Manual) 1.0 K/mm3 (1.2-5.4) L 01/10/17 04:30 Abs React Lymphs (Man) 0.0 K/mm3 01/10/17 04:30 Monocytes # (Manual) 0.2 K/mm3 (0.0-0.8) 01/10/17 04:30 Eosinophils # (Manual) 0.0 K/mm3 (0.0-0.4) 01/10/17 04:30 Basophils # (Manual) 0.0 K/mm3 (0.0-0.1) 01/10/17 04:30 Metamyelocytes # 0.0 K/mm3 01/10/17 04:30 Myelocytes # 0.0 K/mm3 01/10/17 04:30 Promyelocytes # 0.0 K/mm3 01/10/17 04:30 Blast Cells # 0.0 K/mm3 01/10/17 04:30 WBC Morphology Not Reportable 01/10/17 04:30 Hypersegmented Neuts Not Reportable 01/10/17 04:30 Hyposegmented Neuts Not Reportable 01/10/17 04:30 Hypogranular Neuts Not Reportable 01/10/17 04:30 Smudge Cells Not Reportable 01/10/17 04:30 Toxic Granulation Not Reportable 01/10/17 04:30 Toxic Vacuolation Not Reportable 01/10/17 04:30 Dohle Bodies Not Reportable 01/10/17 04:30 Pelger-Huet Anomaly Not Reportable 01/10/17 04:30 [place] Rods Not Reportable 01/10/17 04:30 Platelet Estimate Consistent w auto 01/10/17 04:30 Clumped Platelets Not Reportable 01/10/17 04:30 Plt Clumps, EDTA Not Reportable 01/10/17 04:30 Large Platelets Not Reportable 01/10/17 04:30 Giant Platelets Not Reportable 01/10/17 04:30 Platelet Satelliting Not Reportable 01/10/17 04:30 Plt Morphology Comment Not Reportable 01/10/17 04:30 RBC Morphology Not Reportable 01/10/17 04:30 Dimorphic RBCs Not Reportable 01/10/17 04:30 Polychromasia Not Reportable 01/10/17 04:30 Hypochromasia 1+ 01/10/17 04:30 Poikilocytosis Not Reportable 01/10/17 04:30 Anisocytosis Not Reportable 01/10/17 04:30 Microcytosis Not Reportable 01/10/17 04:30 Macrocytosis Not Reportable 01/10/17 04:30 Spherocytes Not Reportable 01/10/17 04:30 Pappenheimer Bodies Not Reportable 01/10/17 04:30 Sickle Cells Not Reportable 01/10/17 04:30 Target Cells Not Reportable 01/10/17 04:30 Tear Drop Cells Not Reportable 01/10/17 04:30 Ovalocytes Not Reportable 01/10/17 04:30 Helmet Cells Not Reportable 01/10/17 04:30 Jarrett-Inola Bodies Not Reportable 01/10/17 04:30 Murdock Rings Not Reportable 01/10/17 04:30 [place] Cells Not Reportable 01/10/17 04:30 Bite Cells Not Reportable 01/10/17 04:30 Crenated Cell Not Reportable 01/10/17 04:30 Elliptocytes Not Reportable 01/10/17 04:30 Acanthocytes (Spur) Not Reportable 01/10/17 04:30 Rouleaux Not Reportable 01/10/17 04:30 Hemoglobin C Crystals Not Reportable 01/10/17 04:30 Schistocytes Not Reportable 01/10/17 04:30 Malaria parasites Not Reportable 01/10/17 04:30 Kyle Bodies Not Reportable 01/10/17 04:30 Hem Pathologist Commnt No 01/10/17 04:30 PT 14.1 Sec. (12.2-14.9) 01/17/17 04:10 INR 1.04 (0.87-1.13) 01/17/17 04:10 APTT 36.6 Sec. (24.2-36.6) 01/17/17 04:10 POC ABG pH 7.442 (7.35-7.45) 01/31/17 18:55 ABG pH 7.420 pH Units (7.350-7.450) 01/17/17 04:35 POC ABG pCO2 32.8 (35-45) L 01/31/17 18:55 ABG pCO2 34.5 mm Hg 01/17/17 04:35 POC ABG pO2 82 (80-105) 01/31/17 18:55 ABG pO2 160.3 mm Hg (80.0-90.0) H 01/17/17 04:35 POC ABG HCO3 22.4 01/31/17 18:55 ABG HCO3 21.9 mmol/L (20.0-26.0) 01/17/17 04:35 POC ABG Total CO2 23 01/31/17 18:55 POC ABG O2 Sat 97 01/31/17 18:55 ABG O2 Saturation 99.0 % (95.0-99.0) 01/17/17 04:35 ABG O2 Content 11.1 (0.0-44) 01/17/17 04:35 POC ABG Base Excess -2 01/31/17 18:55 ABG Base Excess -2.3 mmol/L (-2.0-3.0) L 01/17/17 04:35 ABG Hemoglobin 7.9 gm/dl (14.0-18.0) L 01/17/17 04:35 ABG Carboxyhemoglobin 1.5 % (0.0-5.0) 01/17/17 04:35 ABG Methemoglobin 0.5 % (0.0-1.5) 01/17/17 04:35 VBG pH 7.284 (7.320-7.420) L 01/09/17 10:16 Oxyhemoglobin 97.1 % (95.0-99.0) 01/17/17 04:35 FiO2 25 % 01/31/17 18:55 Sodium 137 mmol/L (137-145) 02/09/17 07:24 Potassium 4.9 mmol/L (3.6-5.0) 02/09/17 07:24 Chloride 95.5 mmol/L (98-107) L 02/09/17 07:24 Carbon Dioxide 29 mmol/L (22-30) 02/09/17 07:24 Anion Gap 17 mmol/L 02/09/17 07:24 BUN 52 mg/dL (9-20) H 02/09/17 07:24 Creatinine 0.8 mg/dL (0.8-1.5) 02/09/17 07:24 Estimated GFR > 60 ml/min 02/09/17 07:24 BUN/Creatinine Ratio 65 % 02/09/17 07:24 Glucose 277 mg/dL (75-100) H 02/09/17 07:24 POC Glucose 185 (70-105) H 03/05/17 05:20 Lactic Acid 0.80 mmol/L (0.7-2.0) 01/30/17 11:49 Calcium 9.4 mg/dL (8.4-10.2) 02/09/17 07:24 Phosphorus 3.60 mg/dL (2.5-4.5) 01/22/17 04:00 Magnesium 2.10 mg/dL (1.7-2.3) 01/22/17 04:00 Total Bilirubin 0.30 mg/dL (0.1-1.2) 01/22/17 04:00 AST 44 units/L (5-40) H 01/22/17 04:00 ALT 23 units/L (7-56) 01/22/17 04:00 Alkaline Phosphatase 379 units/L (35-129) H 01/22/17 04:00 Ammonia 35.0 umol/L (25-60) 01/09/17 10:16 Total Creatine Kinase 135 units/L (55-170) 01/09/17 10:16 CK-MB (CK-2) 7.1 ng/mL (0.0-4.0) H 01/09/17 10:16 CK-MB (CK-2) Rel Index 5.2 (0-4) H 01/09/17 10:16 Troponin T < 0.010 ng/mL (0.00-0.029) 01/09/17 10:16 NT-Pro-B Natriuret Pep 602.9 pg/mL (0-900) 01/09/17 10:16 Total Protein 7.9 g/dL (6.3-8.2) 01/22/17 04:00 Albumin 2.7 g/dL (3.9-5) L 01/22/17 04:00 Albumin/Globulin Ratio 0.5 % 01/22/17 04:00 TSH 52.800 mlU/mL (0.270-4.200) H 01/09/17 10:16 Free T4 0.78 ng/dL (0.76-1.46) 01/09/17 10:16 Total Cortisol 54.8 mcg/dL () 01/09/17 16:19 Urine Color Yellow (Yellow) 01/28/17 17:52 Urine Turbidity Clear (Clear) 01/28/17 17:52 Urine pH 6.0 (5.0-7.0) 01/28/17 17:52 Ur Specific [place] 1.016 (1.003-1.030) 01/28/17 17:52 Urine Protein 100 mg/dl mg/dL (Negative) 01/28/17 17:52 Urine Glucose (UA) >=500 mg/dL (Negative) 01/28/17 17:52 Urine Ketones Neg mg/dL (Negative) 01/28/17 17:52 Urine Blood Sm (Negative) 01/28/17 17:52 Urine Nitrite Neg (Negative) 01/28/17 17:52 Urine Bilirubin Neg (Negative) 01/28/17 17:52 Urine Urobilinogen < 2.0 mg/dL (<2.0) 01/28/17 17:52 Ur Leukocyte Esterase Lg (Negative) 01/28/17 17:52 Urine WBC (Auto) > 182.0 /HPF (0.0-6.0) H 01/28/17 17:52 Urine RBC (Auto) 113.0 /HPF (0.0-6.0) 01/28/17 17:52 Urine Bacteria (Auto) 2+ /HPF (Negative) 01/28/17 17:52 Urine WBC Clumps 3+ /HPF 01/28/17 17:52 Urine Mucus Few /HPF 01/14/17 14:07 Urine Yeast (Budding) 3+ /HPF 01/14/17 14:07 Salicylates < 0.3 mg/dL (2.8-20.0) L 01/09/17 10:16 Urine Opiates Screen Presumptive negative 01/09/17 10:23 Urine Methadone Screen Presumptive negative 01/09/17 10:23 Acetaminophen < 15.0 ug/mL (10.0-30.0) 01/09/17 10:16 Ur Barbiturates Screen Presumptive negative 01/09/17 10:23 Ur Phencyclidine Scrn Presumptive negative 01/09/17 10:23 Ur Amphetamines Screen Presumptive negative 01/09/17 10:23 U Benzodiazepines Scrn Presumptive negative 01/09/17 10:23 Urine Cocaine Screen Presumptive negative 01/09/17 10:23 U Marijuana (THC) Screen Presumptive negative 01/09/17 10:23 Drugs of Abuse Note Disclamer 01/09/17 10:23 Plasma/Serum Alcohol < 0.01 gm% (0-0.07) 01/09/17 10:16
[2017-03-05] MEDS: PEPCID PO SCH ×2 (09:32→23:10)
[2017-03-05] MEDS: LEVEMIR (NF) SUB-Q SCH (09:33)
[2017-03-05] MEDS: HEPARIN SUB-Q SCH ×2 (09:33→23:10)
--- NOTE | 2017-03-05 10:15 | Progress Note ---
Assessment and Plan 51 y/o male found down, concern for sepsis and now encephalopathic requiring mechanical ventilation. 1. continue supportive care 2. 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 I am aware that he is an AND but trach will not fix this problem and is not in my professional opinion the right thing to do for this patient. Most likely he will never be weaned from the vent and will remain in a persistent vegatative state. 3. Patient is not on abx therapy and currently does not need this 4. Overall prognosis continues to be poor. Subjective Date of service: 03/05/17 Principal diagnosis: Acute respiratory failure,encephalopathy Interval history: No acute events. Objective Vital Signs - 12hr 03/04/17 03/05/17 03/05/17 23:00 00:00 00:36 Temperature 98.2 F Pulse Rate 72 71 Pulse Rate [ From Monitor] Respiratory 24 18 Rate Blood Pressure 138/81 129/90 O2 Sat by Pulse 98 Oximetry 03/05/17 03/05/17 03/05/17 02:00 02:11 03:23 Temperature 98.8 F Pulse Rate 71 70 Pulse Rate [ From Monitor] Respiratory 14 Rate Blood Pressure 114/73 114/73 O2 Sat by Pulse 98 98 Oximetry 03/05/17 03/05/17 03/05/17 04:00 06:00 07:30 Temperature Pulse Rate 73 73 77 Pulse Rate [ From Monitor] Respiratory 14 14 Rate Blood Pressure 120/78 120/78 120/78 O2 Sat by Pulse 99 98 95 Oximetry 03/05/17 03/05/17 03/05/17 07:55 08:00 08:09 Temperature 99.1 F Pulse Rate 79 Pulse Rate [ 77 From Monitor] Respiratory 15 15 Rate Blood Pressure O2 Sat by Pulse 97 97 Oximetry 03/05/17 09:11 Temperature Pulse Rate 79 Pulse Rate [ From Monitor] Respiratory Rate Blood Pressure 108/74 O2 Sat by Pulse 97 Oximetry Constitutional: no acute distress, alert, other (orally intubated, on vent support) Eyes: non-icteric ENT: oropharynx moist Neck: supple, no JVD Effort: normal Ascultation: Bilateral: clear, diminished breath sounds Cardiovascular: regular rate and rhythm Gastrointestinal: normoactive bowel sounds, soft, non-tender, non-distended Integumentary: normal Extremities: no cyanosis, no edema, pink and warm Neurologic: other (awake spontaneously, not not following any commands. Fixed stare.) Psychiatric: other (unable to obtain) CBC and BMP: 02/09/17 07:24 02/09/17 07:24 ABG, PT/INR, D-dimer: ABG POC ABG pH 7.442 (7.35-7.45) 01/31/17 18:55 ABG pH 7.420 pH Units (7.350-7.450) 01/17/17 04:35 POC ABG pCO2 32.8 (35-45) L 01/31/17 18:55 ABG pCO2 34.5 mm Hg 01/17/17 04:35 POC ABG pO2 82 (80-105) 01/31/17 18:55 ABG pO2 160.3 mm Hg (80.0-90.0) H 01/17/17 04:35 POC ABG HCO3 22.4 01/31/17 18:55 POC ABG Total CO2 23 01/31/17 18:55 POC ABG O2 Sat 97 01/31/17 18:55 ABG O2 Saturation 99.0 % (95.0-99.0) 01/17/17 04:35 PT/INR, D-dimer PT 14.1 Sec. (12.2-14.9) 01/17/17 04:10 INR 1.04 (0.87-1.13) 01/17/17 04:10 Abnormal lab findings: Abnormal Labs 01/09/17 01/09/17 01/09/17 10:16 10:16 10:16 WBC RBC Hgb 9.7 L Hct 28.4 L MCV 76 L MCH 26 L RDW 17.2 H Plt Count 448 H Lymph % (Auto) Wolfe % (Auto) Eos % (Auto) Seg Neutrophils % 79.5 H Seg Neuts % (Manual) Lymphocytes % (Manual) Seg Neutrophils # Seg Neutrophils # Man Lymphocytes # (Manual) APTT 39.6 H POC ABG pH ABG pH POC ABG pCO2 POC ABG pO2 ABG pO2 ABG HCO3 ABG Base Excess ABG Hemoglobin VBG pH Oxyhemoglobin Sodium 132 L Potassium Chloride 96.7 L Carbon Dioxide 21 L BUN 34 H Creatinine Glucose POC Glucose Lactic Acid Calcium 8.3 L AST Alkaline Phosphatase 151 H CK-MB (CK-2) 7.1 H CK-MB (CK-2) Rel Index 5.2 H Albumin 3.3 L TSH Urine WBC (Auto) Salicylates 01/09/17 01/09/17 01/09/17 10:16 10:16 10:16 WBC RBC Hgb Hct MCV MCH RDW Plt Count Lymph % (Auto) Wolfe % (Auto) Eos % (Auto) Seg Neutrophils % Seg Neuts % (Manual) Lymphocytes % (Manual) Seg Neutrophils # Seg Neutrophils # Man Lymphocytes # (Manual) APTT POC ABG pH ABG pH POC ABG pCO2 POC ABG pO2 ABG pO2 ABG HCO3 ABG Base Excess ABG Hemoglobin VBG pH 7.284 L Oxyhemoglobin Sodium Potassium Chloride Carbon Dioxide BUN Creatinine Glucose POC Glucose Lactic Acid Calcium AST Alkaline Phosphatase CK-MB (CK-2) CK-MB (CK-2) Rel Index Albumin TSH 52.800 H Urine WBC (Auto) Salicylates < 0.3 L 01/09/17 01/09/17 01/09/17 10:23 11:14 12:49 WBC RBC Hgb Hct MCV MCH RDW Plt Count Lymph % (Auto) Wolfe % (Auto) Eos % (Auto) Seg Neutrophils % Seg Neuts % (Manual) Lymphocytes % (Manual) Seg Neutrophils # Seg Neutrophils # Man Lymphocytes # (Manual) APTT POC ABG pH ABG pH POC ABG pCO2 POC ABG pO2 643 H ABG pO2 ABG HCO3 ABG Base Excess ABG Hemoglobin VBG pH Oxyhemoglobin Sodium Potassium Chloride Carbon Dioxide BUN Creatinine Glucose POC Glucose < 40 L Lactic Acid Calcium AST Alkaline Phosphatase CK-MB (CK-2) CK-MB (CK-2) Rel Index Albumin TSH Urine WBC (Auto) 61.0 H Salicylates 01/09/17 01/09/17 01/09/17 13:13 14:21 15:09 WBC RBC Hgb Hct MCV MCH RDW Plt Count Lymph % (Auto) Wolfe % (Auto) Eos % (Auto) Seg Neutrophils % Seg Neuts % (Manual) Lymphocytes % (Manual) Seg Neutrophils # Seg Neutrophils # Man Lymphocytes # (Manual) APTT POC ABG pH ABG pH POC ABG pCO2 POC ABG pO2 ABG pO2 ABG HCO3 ABG Base Excess ABG Hemoglobin VBG pH Oxyhemoglobin Sodium Potassium Chloride Carbon Dioxide BUN Creatinine Glucose POC Glucose 128 H 65 L 120 H Lactic Acid Calcium AST Alkaline Phosphatase CK-MB (CK-2) CK-MB (CK-2) Rel Index Albumin TSH Urine WBC (Auto) Salicylates 01/09/17 01/09/17 01/10/17 16:28 17:14 04:30 WBC 24.1 H RBC 3.38 L Hgb 8.5 L Hct 26.0 L MCV 77 L MCH 25 L RDW 17.9 H Plt Count 474 H Lymph % (Auto) Wolfe % (Auto) Eos % (Auto) Seg Neutrophils % Seg Neuts % (Manual) 88.0 H Lymphocytes % (Manual) 4.0 L Seg Neutrophils # Seg Neutrophils # Man 21.2 H Lymphocytes # (Manual) 1.0 L APTT POC ABG pH ABG pH POC ABG pCO2 POC ABG pO2 ABG pO2 ABG HCO3 ABG Base Excess ABG Hemoglobin VBG pH Oxyhemoglobin Sodium Potassium Chloride Carbon Dioxide BUN Creatinine Glucose POC Glucose 44 L 112 H Lactic Acid Calcium AST Alkaline Phosphatase CK-MB (CK-2) CK-MB (CK-2) Rel Index Albumin TSH Urine WBC (Auto) Salicylates 01/10/17 01/10/17 01/10/17 04:30 05:41 05:45 WBC RBC Hgb Hct MCV MCH RDW Plt Count Lymph % (Auto) Wolfe % (Auto) Eos % (Auto) Seg Neutrophils % Seg Neuts % (Manual) Lymphocytes % (Manual) Seg Neutrophils # Seg Neutrophils # Man Lymphocytes # (Manual) APTT POC ABG pH ABG pH POC ABG pCO2 26.6 L POC ABG pO2 207 H ABG pO2 ABG HCO3 ABG Base Excess ABG Hemoglobin VBG pH Oxyhemoglobin Sodium Potassium Chloride Carbon Dioxide 17 L BUN 27 H Creatinine Glucose POC Glucose 68 L Lactic Acid Calcium 7.5 L AST Alkaline Phosphatase CK-MB (CK-2) CK-MB (CK-2) Rel Index Albumin TSH Urine WBC (Auto) Salicylates 01/10/17 01/10/17 01/10/17 07:47 10:50 13:41 WBC RBC Hgb Hct MCV MCH RDW Plt Count Lymph % (Auto) Wolfe % (Auto) Eos % (Auto) Seg Neutrophils % Seg Neuts % (Manual) Lymphocytes % (Manual) Seg Neutrophils # Seg Neutrophils # Man Lymphocytes # (Manual) APTT POC ABG pH ABG pH POC ABG pCO2 POC ABG pO2 ABG pO2 ABG HCO3 ABG Base Excess ABG Hemoglobin VBG pH Oxyhemoglobin Sodium Potassium Chloride Carbon Dioxide BUN Creatinine Glucose POC Glucose 148 H 165 H 114 H Lactic Acid Calcium AST Alkaline Phosphatase CK-MB (CK-2) CK-MB (CK-2) Rel Index Albumin TSH Urine WBC (Auto) Salicylates 01/10/17 01/10/17 01/10/17 20:20 21:39 23:24 WBC RBC Hgb Hct MCV MCH RDW Plt Count Lymph % (Auto) Wolfe % (Auto) Eos % (Auto) Seg Neutrophils % Seg Neuts % (Manual) Lymphocytes % (Manual) Seg Neutrophils # Seg Neutrophils # Man Lymphocytes # (Manual) APTT POC ABG pH ABG pH POC ABG pCO2 POC ABG pO2 ABG pO2 ABG HCO3 ABG Base Excess ABG Hemoglobin VBG pH Oxyhemoglobin Sodium Potassium Chloride Carbon Dioxide BUN Creatinine Glucose POC Glucose 150 H 175 H 155 H Lactic Acid Calcium AST Alkaline Phosphatase CK-MB (CK-2) CK-MB (CK-2) Rel Index Albumin TSH Urine WBC (Auto) Salicylates 01/11/17 01/11/17 01/11/17 00:19 04:06 05:20 WBC 15.2 H RBC 3.40 L Hgb 8.9 L Hct 26.3 L MCV 78 L MCH 26 L RDW 18.6 H Plt Count 462 H Lymph % (Auto) 13.2 L Wolfe % (Auto) Eos % (Auto) Seg Neutrophils % 80.8 H Seg Neuts % (Manual) Lymphocytes % (Manual) Seg Neutrophils # 12.3 H Seg Neutrophils # Man Lymphocytes # (Manual) APTT POC ABG pH 7.463 H ABG pH POC ABG pCO2 26.2 L POC ABG pO2 185 H ABG pO2 ABG HCO3 ABG Base Excess ABG Hemoglobin VBG pH Oxyhemoglobin Sodium Potassium Chloride Carbon Dioxide BUN Creatinine Glucose POC Glucose 163 H Lactic Acid Calcium AST Alkaline Phosphatase CK-MB (CK-2) CK-MB (CK-2) Rel Index Albumin TSH Urine WBC (Auto) Salicylates 01/11/17 01/11/17 01/11/17 05:20 06:21 07:57 WBC RBC Hgb Hct MCV MCH RDW Plt Count Lymph % (Auto) Wolfe % (Auto) Eos % (Auto) Seg Neutrophils % Seg Neuts % (Manual) Lymphocytes % (Manual) Seg Neutrophils # Seg Neutrophils # Man Lymphocytes # (Manual) APTT POC ABG pH ABG pH POC ABG pCO2 POC ABG pO2 ABG pO2 ABG HCO3 ABG Base Excess ABG Hemoglobin VBG pH Oxyhemoglobin Sodium Potassium 3.4 L Chloride 111.5 H Carbon Dioxide 17 L BUN Creatinine Glucose 147 H POC Glucose 139 H 188 H Lactic Acid Calcium 8.0 L AST Alkaline Phosphatase CK-MB (CK-2) CK-MB (CK-2) Rel Index Albumin TSH Urine WBC (Auto) Salicylates 01/11/17 01/11/17 01/11/17 11:46 16:50 23:15 WBC RBC Hgb Hct MCV MCH RDW Plt Count Lymph % (Auto) Wolfe % (Auto) Eos % (Auto) Seg Neutrophils % Seg Neuts % (Manual) Lymphocytes % (Manual) Seg Neutrophils # Seg Neutrophils # Man Lymphocytes # (Manual) APTT POC ABG pH ABG pH POC ABG pCO2 POC ABG pO2 ABG pO2 ABG HCO3 ABG Base Excess ABG Hemoglobin VBG pH Oxyhemoglobin Sodium Potassium Chloride Carbon Dioxide BUN Creatinine Glucose POC Glucose 199 H 235 H 155 H Lactic Acid Calcium AST Alkaline Phosphatase CK-MB (CK-2) CK-MB (CK-2) Rel Index Albumin TSH Urine WBC (Auto) Salicylates 01/12/17 01/12/17 01/12/17 05:02 06:56 14:50 WBC RBC Hgb Hct MCV MCH RDW Plt Count Lymph % (Auto) Wol[place] % (Auto) Eos % (Auto) Seg Neutrophils % Seg Neuts % (Manual) Lymphocytes % (Manual) Seg Neutrophils # Seg Neutrophils # Man Lymphocytes # (Manual) APTT POC ABG pH ABG pH POC ABG pCO2 28.0 L POC ABG pO2 178 H ABG pO2 ABG HCO3 ABG Base Excess ABG Hemoglobin VBG pH Oxyhemoglobin Sodium Potassium Chloride Carbon Dioxide BUN Creatinine Glucose POC Glucose 119 H 164 H Lactic Acid Calcium AST Alkaline Phosphatase CK-MB (CK-2) CK-MB (CK-2) Rel Index Albumin TSH Urine WBC (Auto) Salicylates 01/13/17 01/13/17 01/13/17 03:37 03:37 04:26 WBC RBC 3.61 L Hgb 9.3 L Hct 28.0 L MCV 78 L MCH 26 L RDW 18.2 H Plt Count Lymph % (Auto) Wolfe % (Auto) Eos % (Auto) Seg Neutrophils % Seg Neuts % (Manual) Lymphocytes % (Manual) Seg Neutrophils # Seg Neutrophils # Man Lymphocytes # (Manual) APTT POC ABG pH 7.485 H ABG pH POC ABG pCO2 25.4 L POC ABG pO2 73 L ABG pO2 ABG HCO3 ABG Base Excess ABG Hemoglobin VBG pH Oxyhemoglobin Sodium Potassium Chloride 112.4 H Carbon Dioxide 19 L BUN Creatinine Glucose 118 H POC Glucose Lactic Acid Calcium 8.0 L AST Alkaline Phosphatase CK-MB (CK-2) CK-MB (CK-2) Rel Index Albumin TSH Urine WBC (Auto) Salicylates 01/13/17 01/13/17 01/13/17 06:15 11:50 17:31 WBC RBC Hgb Hct MCV MCH RDW Plt Count Lymph % (Auto) Wolfe % (Auto) Eos % (Auto) Seg Neutrophils % Seg Neuts % (Manual) Lymphocytes % (Manual) Seg Neutrophils # Seg Neutrophils # Man Lymphocytes # (Manual) APTT POC ABG pH ABG pH POC ABG pCO2 POC ABG pO2 ABG pO2 ABG HCO3 ABG Base Excess ABG Hemoglobin VBG pH Oxyhemoglobin Sodium Potassium Chloride Carbon Dioxide BUN Creatinine Glucose POC Glucose 116 H 171 H 203 H Lactic Acid Calcium AST Alkaline Phosphatase CK-MB (CK-2) CK-MB (CK-2) Rel Index Albumin TSH Urine WBC (Auto) Salicylates 01/14/17 01/14/17 01/14/17 00:02 04:50 04:50 WBC RBC 3.32 L Hgb 8.5 L Hct 26.1 L MCV 79 L MCH 26 L RDW 18.2 H Plt Count Lymph % (Auto) Wolfe % (Auto) 9.0 H Eos % (Auto) Seg Neutrophils % Seg Neuts % (Manual) Lymphocytes % (Manual) Seg Neutrophils # Seg Neutrophils # Man Lymphocytes # (Manual) APTT POC ABG pH ABG pH POC ABG pCO2 POC ABG pO2 ABG pO2 ABG HCO3 ABG Base Excess ABG Hemoglobin VBG pH Oxyhemoglobin Sodium Potassium Chloride 112.5 H Carbon Dioxide BUN Creatinine Glucose 149 H POC Glucose 157 H Lactic Acid Calcium 8.1 L AST Alkaline Phosphatase CK-MB (CK-2) CK-MB (CK-2) Rel Index Albumin TSH Urine WBC (Auto) Salicylates 01/14/17 01/14/17 01/14/17 05:10 11:27 14:07 WBC RBC Hgb Hct MCV MCH RDW Plt Count Lymph % (Auto) Wolfe % (Auto) Eos % (Auto) Seg Neutrophils % Seg Neuts % (Manual) Lymphocytes % (Manual) Seg Neutrophils # Seg Neutrophils # Man Lymphocytes # (Manual) APTT POC ABG pH ABG pH POC ABG pCO2 POC ABG pO2 ABG pO2 ABG HCO3 ABG Base Excess ABG Hemoglobin VBG pH Oxyhemoglobin Sodium Potassium Chloride Carbon Dioxide BUN Creatinine Glucose POC Glucose 176 H 147 H Lactic Acid Calcium AST Alkaline Phosphatase CK-MB (CK-2) CK-MB (CK-2) Rel Index Albumin TSH Urine WBC (Auto) 53.0 H Salicylates 01/14/17 01/15/17 01/15/17 16:52 00:04 05:26 WBC RBC Hgb Hct MCV MCH RDW Plt Count Lymph % (Auto) Wolfe % (Auto) Eos % (Auto) Seg Neutrophils % Seg Neuts % (Manual) Lymphocytes % (Manual) Seg Neutrophils # Seg Neutrophils # Man Lymphocytes # (Manual) APTT POC ABG pH ABG pH POC ABG pCO2 POC ABG pO2 ABG pO2 ABG HCO3 ABG Base Excess ABG Hemoglobin VBG pH Oxyhemoglobin Sodium Potassium Chloride Carbon Dioxide BUN Creatinine Glucose POC Glucose 131 H 193 H 215 H Lactic Acid Calcium AST Alkaline Phosphatase CK-MB (CK-2) CK-MB (CK-2) Rel Index Albumin TSH Urine WBC (Auto) Salicylates 01/15/17 01/15/17 01/15/17 11:49 17:47 21:33 WBC RBC Hgb Hct MCV MCH RDW Plt Count Lymph % (Auto) Wolfe % (Auto) Eos % (Auto) Seg Neutrophils % Seg Neuts % (Manual) Lymphocytes % (Manual) Seg Neutrophils # Seg Neutrophils # Man Lymphocytes # (Manual) APTT POC ABG pH ABG pH POC ABG pCO2 POC ABG pO2 ABG pO2 ABG HCO3 ABG Base Excess ABG Hemoglobin VBG pH Oxyhemoglobin Sodium Potassium Chloride Carbon Dioxide BUN Creatinine Glucose POC Glucose 121 H 211 H 275 H Lactic Acid Calcium AST Alkaline Phosphatase CK-MB (CK-2) CK-MB (CK-2) Rel Index Albumin TSH Urine WBC (Auto) Salicylates 10/11/2501/16/17 01/16/17 04:30 05:28 13:45 WBC RBC Hgb Hct MCV MCH RDW Plt Count Lymph % (Auto) Wolfe % (Auto) Eos % (Auto) Seg Neutrophils % Seg Neuts % (Manual) Lymphocytes % (Manual) Seg Neutrophils # Seg Neutrophils # Man Lymphocytes # (Manual) APTT POC ABG pH ABG pH 7.457 H POC ABG pCO2 POC ABG pO2 ABG pO2 55.1 L ABG HCO3 19.4 L ABG Base Excess -4.0 L ABG Hemoglobin 6.8 L VBG pH Oxyhemoglobin 94.9 L Sodium Potassium Chloride Carbon Dioxide BUN Creatinine Glucose POC Glucose 271 H 236 H Lactic Acid Calcium AST Alkaline Phosphatase CK-MB (CK-2) CK-MB (CK-2) Rel Index Albumin TSH Urine WBC (Auto) Salicylates 01/16/17 01/17/17 01/17/17 21:39 04:10 04:10 WBC 4.4 L RBC 2.98 L Hgb 7.7 L Hct 23.3 L MCV 78 L MCH 26 L RDW 18.1 H Plt Count Lymph % (Auto) Wolfe % (Auto) Eos % (Auto) Seg Neutrophils % Seg Neuts % (Manual) Lymphocytes % (Manual) Seg Neutrophils # Seg Neutrophils # Man Lymphocytes # (Manual) APTT POC ABG pH ABG pH POC ABG pCO2 POC ABG pO2 ABG pO2 ABG HCO3 ABG Base Excess ABG Hemoglobin VBG pH Oxyhemoglobin Sodium Potassium 3.3 L Chloride 108.7 H Carbon Dioxide 20 L BUN 8 L Creatinine Glucose 202 H POC Glucose 258 H Lactic Acid Calcium 7.6 L AST Alkaline Phosphatase CK-MB (CK-2) CK-MB (CK-2) Rel Index Albumin TSH Urine WBC (Auto) Salicylates 01/17/17 01/17/17 01/17/17 04:35 12:23 16:01 WBC RBC Hgb Hct MCV MCH RDW Plt Count Lymph % (Auto) Wolfe % (Auto) Eos % (Auto) Seg Neutrophils % Seg Neuts % (Manual) Lymphocytes % (Manual) Seg Neutrophils # Seg Neutrophils # Man Lymphocytes # (Manual) APTT POC ABG pH ABG pH POC ABG pCO2 POC ABG pO2 ABG pO2 160.3 H ABG HCO3 ABG Base Excess -2.3 L ABG Hemoglobin 7.9 L VBG pH Oxyhemoglobin Sodium Potassium Chloride Carbon Dioxide BUN Creatinine Glucose POC Glucose 321 H 239 H Lactic Acid Calcium AST Alkaline Phosphatase CK-MB (CK-2) CK-MB (CK-2) Rel Index Albumin TSH Urine WBC (Auto) Salicylates 01/18/17 01/18/17 01/18/17 05:07 12:09 17:54 WBC RBC Hgb Hct MCV MCH RDW Plt Count Lymph % (Auto) Wolfe % (Auto) Eos % (Auto) Seg Neutrophils % Seg Neuts % (Manual) Lymphocytes % (Manual) Seg Neutrophils # Seg Neutrophils # Man Lymphocytes # (Manual) APTT POC ABG pH ABG pH POC ABG pCO2 POC ABG pO2 ABG pO2 ABG HCO3 ABG Base Excess ABG Hemoglobin VBG pH Oxyhemoglobin Sodium Potassium Chloride Carbon Dioxide BUN Creatinine Glucose POC Glucose 155 H 203 H 132 H Lactic Acid Calcium AST Alkaline Phosphatase CK-MB (CK-2) CK-MB (CK-2) Rel Index Albumin TSH Urine WBC (Auto) Salicylates 01/18/17 01/19/17 01/19/17 23:43 04:28 12:11 WBC RBC Hgb Hct MCV MCH RDW Plt Count Lymph % (Auto) Wolfe % (Auto) Eos % (Auto) Seg Neutrophils % Seg Neuts % (Manual) Lymphocytes % (Manual) Seg Neutrophils # Seg Neutrophils # Man Lymphocytes # (Manual) APTT POC ABG pH ABG pH POC ABG pCO2 POC ABG pO2 ABG pO2 ABG HCO3 ABG Base Excess ABG Hemoglobin VBG pH Oxyhemoglobin Sodium Potassium Chloride Carbon Dioxide BUN Creatinine Glucose POC Glucose 125 H 182 H 153 H Lactic Acid Calcium AST Alkaline Phosphatase CK-MB (CK-2) CK-MB (CK-2) Rel Index Albumin TSH Urine WBC (Auto) Salicylates 01/19/17 01/20/17 01/20/17 17:23 00:12 05:44 WBC RBC Hgb Hct MCV MCH RDW Plt Count Lymph % (Auto) Wolfe % (Auto) Eos % (Auto) Seg Neutrophils % Seg Neuts % (Manual) Lymphocytes % (Manual) Seg Neutrophils # Seg Neutrophils # Man Lymphocytes # (Manual) APTT POC ABG pH ABG pH POC ABG pCO2 POC ABG pO2 ABG pO2 ABG HCO3 ABG Base Excess ABG Hemoglobin VBG pH Oxyhemoglobin Sodium Potassium Chloride Carbon Dioxide BUN Creatinine Glucose POC Glucose 66 L 139 H 176 H Lactic Acid Calcium AST Alkaline Phosphatase CK-MB (CK-2) CK-MB (CK-2) Rel Index Albumin TSH Urine WBC (Auto) Salicylates 01/20/17 01/20/17 01/20/17 11:48 17:42 23:43 WBC RBC Hgb Hct MCV MCH RDW Plt Count Lymph % (Auto) Wolfe % (Auto) Eos % (Auto) Seg Neutrophils % Seg Neuts % (Manual) Lymphocytes % (Manual) Seg Neutrophils # Seg Neutrophils # Man Lymphocytes # (Manual) APTT POC ABG pH ABG pH POC ABG pCO2 POC ABG pO2 ABG pO2 ABG HCO3 ABG Base Excess ABG Hemoglobin VBG pH Oxyhemoglobin Sodium Potassium Chloride Carbon Dioxide BUN Creatinine Glucose POC Glucose 218 H 132 H 178 H Lactic Acid Calcium AST Alkaline Phosphatase CK-MB (CK-2) CK-MB (CK-2) Rel Index Albumin TSH Urine WBC (Auto) Salicylates 01/21/17 01/21/17 01/21/17 05:34 11:17 23:37 WBC RBC Hgb Hct MCV MCH RDW Plt Count Lymph % (Auto) Wolfe % (Auto) Eos % (Auto) Seg Neutrophils % Seg Neuts % (Manual) Lymphocytes % (Manual) Seg Neutrophils # Seg Neutrophils # Man Lymphocytes # (Manual) APTT POC ABG pH ABG pH POC ABG pCO2 POC ABG pO2 ABG pO2 ABG HCO3 ABG Base Excess ABG Hemoglobin VBG pH Oxyhemoglobin Sodium Potassium Chloride Carbon Dioxide BUN Creatinine Glucose POC Glucose 106 H 213 H 140 H Lactic Acid Calcium AST Alkaline Phosphatase CK-MB (CK-2) CK-MB (CK-2) Rel Index Albumin TSH Urine WBC (Auto) Salicylates 01/22/17 01/22/17 01/22/17 04:00 04:00 04:58 WBC RBC 3.26 L Hgb 8.3 L Hct 25.5 L MCV 78 L MCH 25 L RDW 17.9 H Plt Count Lymph % (Auto) Wolfe % (Auto) 7.9 H Eos % (Auto) 6.2 H Seg Neutrophils % Seg Neuts % (Manual) Lymphocytes % (Manual) Seg Neutrophils # Seg Neutrophils # Man Lymphocytes # (Manual) APTT POC ABG pH ABG pH POC ABG pCO2 POC ABG pO2 ABG pO2 ABG HCO3 ABG Base Excess ABG Hemoglobin VBG pH Oxyhemoglobin Sodium Potassium Chloride 95.5 L Carbon Dioxide 31 H D BUN Creatinine Glucose 134 H POC Glucose 146 H Lactic Acid Calcium AST 44 H Alkaline Phosphatase 379 H CK-MB (CK-2) CK-MB (CK-2) Rel Index Albumin 2.7 L TSH Urine WBC (Auto) Salicylates 01/22/17 01/22/17 01/22/17 12:12 18:12 23:39 WBC RBC Hgb Hct MCV MCH RDW Plt Count Lymph % (Auto) Wolfe % (Auto) Eos % (Auto) Seg Neutrophils % Seg Neuts % (Manual) Lymphocytes % (Manual) Seg Neutrophils # Seg Neutrophils # Man Lymphocytes # (Manual) APTT POC ABG pH ABG pH POC ABG pCO2 POC ABG pO2 ABG pO2 ABG HCO3 ABG Base Excess ABG Hemoglobin VBG pH Oxyhemoglobin Sodium Potassium Chloride Carbon Dioxide BUN Creatinine Glucose POC Glucose 255 H 182 H 134 H Lactic Acid Calcium AST Alkaline Phosphatase CK-MB (CK-2) CK-MB (CK-2) Rel Index Albumin TSH Urine WBC (Auto) Salicylates 01/23/17 01/23/17 01/23/17 04:43 12:12 17:36 WBC RBC Hgb Hct MCV MCH RDW Plt Count Lymph % (Auto) Wolfe % (Auto) Eos % (Auto) Seg Neutrophils % Seg Neuts % (Manual) Lymphocytes % (Manual) Seg Neutrophils # Seg Neutrophils # Man Lymphocytes # (Manual) APTT POC ABG pH ABG pH POC ABG pCO2 POC ABG pO2 ABG pO2 ABG HCO3 ABG Base Excess ABG Hemoglobin VBG pH Oxyhemoglobin Sodium Potassium Chloride Carbon Dioxide BUN Creatinine Glucose POC Glucose 218 H 128 H 156 H Lactic Acid Calcium AST Alkaline Phosphatase CK-MB (CK-2) CK-MB (CK-2) Rel Index Albumin TSH Urine WBC (Auto) Salicylates 01/24/17 01/24/17 01/24/17 00:08 05:16 11:40 WBC RBC Hgb Hct MCV MCH RDW Plt Count Lymph % (Auto) Wol[place] % (Auto) Eos % (Auto) Seg Neutrophils % Seg Neuts % (Manual) Lymphocytes % (Manual) Seg Neutrophils # Seg Neutrophils # Man Lymphocytes # (Manual) APTT POC ABG pH ABG pH POC ABG pCO2 POC ABG pO2 ABG pO2 ABG HCO3 ABG Base Excess ABG Hemoglobin VBG pH Oxyhemoglobin Sodium Potassium Chloride Carbon Dioxide BUN Creatinine Glucose POC Glucose 129 H 169 H 187 H Lactic Acid Calcium AST Alkaline Phosphatase CK-MB (CK-2) CK-MB (CK-2) Rel Index Albumin TSH Urine WBC (Auto) Salicylates 01/24/17 01/24/17 01/25/17 17:43 23:23 04:56 WBC RBC Hgb Hct MCV MCH RDW Plt Count Lymph % (Auto) Wolfe % (Auto) Eos % (Auto) Seg Neutrophils % Seg Neuts % (Manual) Lymphocytes % (Manual) Seg Neutrophils # Seg Neutrophils # Man Lymphocytes # (Manual) APTT POC ABG pH ABG pH POC ABG pCO2 POC ABG pO2 ABG pO2 ABG HCO3 ABG Base Excess ABG Hemoglobin VBG pH Oxyhemoglobin Sodium Potassium Chloride Carbon Dioxide BUN Creatinine Glucose POC Glucose 215 H 222 H 210 H Lactic Acid Calcium AST Alkaline Phosphatase CK-MB (CK-2) CK-MB (CK-2) Rel Index Albumin TSH Urine WBC (Auto) Salicylates 01/25/17 01/25/17 01/26/17 11:52 17:37 00:02 WBC RBC Hgb Hct MCV MCH RDW Plt Count Lymph % (Auto) Wolfe % (Auto) Eos % (Auto) Seg Neutrophils % Seg Neuts % (Manual) Lymphocytes % (Manual) Seg Neutrophils # Seg Neutrophils # Man Lymphocytes # (Manual) APTT POC ABG pH ABG pH POC ABG pCO2 POC ABG pO2 ABG pO2 ABG HCO3 ABG Base Excess ABG Hemoglobin VBG pH Oxyhemoglobin Sodium Potassium Chloride Carbon Dioxide BUN Creatinine Glucose POC Glucose 284 H 218 H 192 H Lactic Acid Calcium AST Alkaline Phosphatase CK-MB (CK-2) CK-MB (CK-2) Rel Index Albumin TSH Urine WBC (Auto) Salicylates 01/26/17 01/26/17 01/26/17 05:33 12:17 17:50 WBC RBC Hgb Hct MCV MCH RDW Plt Count Lymph % (Auto) [place] % (Auto) Eos % (Auto) Seg Neutrophils % Seg Neuts % (Manual) Lymphocytes % (Manual) Seg Neutrophils # Seg Neutrophils # Man Lymphocytes # (Manual) APTT POC ABG pH ABG pH POC ABG pCO2 POC ABG pO2 ABG pO2 ABG HCO3 ABG Base Excess ABG Hemoglobin VBG pH Oxyhemoglobin Sodium Potassium Chloride Carbon Dioxide BUN Creatinine Glucose POC Glucose 199 H 227 H 229 H Lactic Acid Calcium AST Alkaline Phosphatase CK-MB (CK-2) CK-MB (CK-2) Rel Index Albumin TSH Urine WBC (Auto) Salicylates 01/26/17 01/27/17 01/27/17 23:57 05:31 11:42 WBC RBC Hgb Hct MCV MCH RDW Plt Count Lymph % (Auto) [place] % (Auto) Eos % (Auto) Seg Neutrophils % Seg Neuts % (Manual) Lymphocytes % (Manual) Seg Neutrophils # Seg Neutrophils # Man Lymphocytes # (Manual) APTT POC ABG pH ABG pH POC ABG pCO2 POC ABG pO2 ABG pO2 ABG HCO3 ABG Base Excess ABG Hemoglobin VBG pH Oxyhemoglobin Sodium Potassium Chloride Carbon Dioxide BUN Creatinine Glucose POC Glucose 186 H 285 H 260 H Lactic Acid Calcium AST Alkaline Phosphatase CK-MB (CK-2) CK-MB (CK-2) Rel Index Albumin TSH Urine WBC (Auto) Salicylates 01/27/17 01/27/17 01/27/17 17:47 23:58 Unknown WBC 12.1 H RBC 3.28 L Hgb 8.5 L Hct 25.5 L MCV 78 L MCH 26 L RDW 16.8 H Plt Count 601 H Lymph % (Auto) [place] % (Auto) Eos % (Auto) Seg Neutrophils % Seg Neuts % (Manual) Lymphocytes % (Manual) Seg Neutrophils # Seg Neutrophils # Man Lymphocytes # (Manual) APTT POC ABG pH ABG pH POC ABG pCO2 POC ABG pO2 ABG pO2 ABG HCO3 ABG Base Excess ABG Hemoglobin VBG pH Oxyhemoglobin Sodium Potassium Chloride Carbon Dioxide BUN Creatinine Glucose POC Glucose 329 H 225 H Lactic Acid Calcium AST Alkaline Phosphatase CK-MB (CK-2) CK-MB (CK-2) Rel Index Albumin TSH Urine WBC (Auto) Salicylates 01/27/17 01/28/17 01/28/17 Unknown 03:44 03:44 WBC RBC 3.14 L Hgb 8.2 L Hct 24.1 L MCV 77 L MCH 26 L RDW 16.9 H Plt Count 567 H Lymph % (Auto) [place] % (Auto) Eos % (Auto) Seg Neutrophils % Seg Neuts % (Manual) Lymphocytes % (Manual) Seg Neutrophils # Seg Neutrophils # Man Lymphocytes # (Manual) APTT POC ABG pH ABG pH POC ABG pCO2 POC ABG pO2 ABG pO2 ABG HCO3 ABG Base Excess ABG Hemoglobin VBG pH Oxyhemoglobin Sodium 128 L Potassium 5.4 H Chloride 87.5 L Carbon Dioxide BUN 44 H 42 H Creatinine Glucose 250 H 128 H POC Glucose Lactic Acid Calcium AST Alkaline Phosphatase CK-MB (CK-2) CK-MB (CK-2) Rel Index Albumin TSH Urine WBC (Auto) Salicylates 01/28/17 01/28/17 01/28/17 11:43 16:47 17:52 WBC RBC Hgb Hct MCV MCH RDW Plt Count Lymph % (Auto) [place] % (Auto) Eos % (Auto) Seg Neutrophils % Seg Neuts % (Manual) Lymphocytes % (Manual) Seg Neutrophils # Seg Neutrophils # Man Lymphocytes # (Manual) APTT POC ABG pH ABG pH POC ABG pCO2 POC ABG pO2 ABG pO2 ABG HCO3 ABG Base Excess ABG Hemoglobin VBG pH Oxyhemoglobin Sodium Potassium Chloride Carbon Dioxide BUN Creatinine Glucose POC Glucose 351 H 249 H Lactic Acid Calcium AST Alkaline Phosphatase CK-MB (CK-2) CK-MB (CK-2) Rel Index Albumin TSH Urine WBC (Auto) > 182.0 H Salicylates 01/29/17 01/29/17 01/29/17 05:25 05:25 09:32 WBC 13.6 H RBC 3.25 L Hgb 8.3 L Hct 25.1 L MCV 77 L MCH 26 L RDW 16.8 H Plt Count 514 H Lymph % (Auto) [place] % (Auto) Eos % (Auto) Seg Neutrophils % Seg Neuts % (Manual) Lymphocytes % (Manual) Seg Neutrophils # Seg Neutrophils # Man Lymphocytes # (Manual) APTT POC ABG pH ABG pH POC ABG pCO2 POC ABG pO2 ABG pO2 ABG HCO3 ABG Base Excess ABG Hemoglobin VBG pH Oxyhemoglobin Sodium Potassium Chloride 97.8 L Carbon Dioxide BUN 34 H Creatinine Glucose 222 H POC Glucose Lactic Acid 2.50 H* Calcium AST Alkaline Phosphatase CK-MB (CK-2) CK-MB (CK-2) Rel Index Albumin TSH Urine WBC (Auto) Salicylates 01/29/17 01/29/17 01/29/17 11:56 18:11 23:55 WBC RBC Hgb Hct MCV MCH RDW Plt Count Lymph % (Auto) [place] % (Auto) Eos % (Auto) Seg Neutrophils % Seg Neuts % (Manual) Lymphocytes % (Manual) Seg Neutrophils # Seg Neutrophils # Man Lymphocytes # (Manual) APTT POC ABG pH ABG pH POC ABG pCO2 POC ABG pO2 ABG pO2 ABG HCO3 ABG Base Excess ABG Hemoglobin VBG pH Oxyhemoglobin Sodium Potassium Chloride Carbon Dioxide BUN Creatinine Glucose POC Glucose 261 H 215 H 176 H Lactic Acid Calcium AST Alkaline Phosphatase CK-MB (CK-2) CK-MB (CK-2) Rel Index Albumin TSH Urine WBC (Auto) Salicylates 01/30/17 01/30/17 01/30/17 05:31 05:31 05:34 WBC 15.2 H RBC 3.09 L Hgb 7.9 L Hct 23.9 L MCV 77 L MCH 26 L RDW 16.9 H Plt Count 569 H Lymph % (Auto) [place] % (Auto) Eos % (Auto) Seg Neutrophils % Seg Neuts % (Manual) Lymphocytes % (Manual) Seg Neutrophils # Seg Neutrophils # Man Lymphocytes # (Manual) APTT POC ABG pH ABG pH POC ABG pCO2 POC ABG pO2 ABG pO2 ABG HCO3 ABG Base Excess ABG Hemoglobin VBG pH Oxyhemoglobin Sodium Potassium Chloride Carbon Dioxide BUN 24 H Creatinine Glucose 235 H POC Glucose 243 H Lactic Acid Calcium AST Alkaline Phosphatase CK-MB (CK-2) CK-MB (CK-2) Rel Index Albumin TSH Urine WBC (Auto) Salicylates 01/30/17 01/30/17 01/30/17 11:38 17:58 23:29 WBC RBC Hgb Hct MCV MCH RDW Plt Count Lymph % (Auto) [place] % (Auto) Eos % (Auto) Seg Neutrophils % Seg Neuts % (Manual) Lymphocytes % (Manual) Seg Neutrophils # Seg Neutrophils # Man Lymphocytes # (Manual) APTT POC ABG pH ABG pH POC ABG pCO2 POC ABG pO2 ABG pO2 ABG HCO3 ABG Base Excess ABG Hemoglobin VBG pH Oxyhemoglobin Sodium Potassium Chloride Carbon Dioxide BUN Creatinine Glucose POC Glucose 298 H 208 H 245 H Lactic Acid Calcium AST Alkaline Phosphatase CK-MB (CK-2) CK-MB (CK-2) Rel Index Albumin TSH Urine WBC (Auto) Salicylates 01/31/17 01/31/17 01/31/17 04:39 04:39 05:57 WBC 11.4 H RBC 3.22 L Hgb 8.2 L Hct 24.9 L MCV 78 L MCH 25 L RDW 17.2 H Plt Count 576 H Lymph % (Auto) [place] % (Auto) Eos % (Auto) Seg Neutrophils % Seg Neuts % (Manual) Lymphocytes % (Manual) Seg Neutrophils # Seg Neutrophils # Man Lymphocytes # (Manual) APTT POC ABG pH ABG pH POC ABG pCO2 POC ABG pO2 ABG pO2 ABG HCO3 ABG Base Excess ABG Hemoglobin VBG pH Oxyhemoglobin Sodium Potassium Chloride Carbon Dioxide BUN Creatinine 0.7 L Glucose 223 H POC Glucose 264 H Lactic Acid Calcium AST Alkaline Phosphatase CK-MB (CK-2) CK-MB (CK-2) Rel Index Albumin TSH Urine WBC (Auto) Salicylates 01/31/17 01/31/17 01/31/17 12:23 17:41 18:55 WBC RBC Hgb Hct MCV MCH RDW Plt Count Lymph % (Auto) [place] % (Auto) Eos % (Auto) Seg Neutrophils % Seg Neuts % (Manual) Lymphocytes % (Manual) Seg Neutrophils # Seg Neutrophils # Man Lymphocytes # (Manual) APTT POC ABG pH ABG pH POC ABG pCO2 32.8 L POC ABG pO2 ABG pO2 ABG HCO3 ABG Base Excess ABG Hemoglobin VBG pH Oxyhemoglobin Sodium Potassium Chloride Carbon Dioxide BUN Creatinine Glucose POC Glucose 252 H 208 H Lactic Acid Calcium AST Alkaline Phosphatase CK-MB (CK-2) CK-MB (CK-2) Rel Index Albumin TSH Urine WBC (Auto) Salicylates 01/31/17 02/01/17 02/01/17 22:59 03:38 03:38 WBC RBC 2.81 L Hgb 7.4 L Hct 22.1 L MCV 79 L MCH 27 L RDW 17.0 H Plt Count 540 H Lymph % (Auto) [place] % (Auto) Eos % (Auto) Seg Neutrophils % Seg Neuts % (Manual) Lymphocytes % (Manual) Seg Neutrophils # Seg Neutrophils # Man Lymphocytes # (Manual) APTT POC ABG pH ABG pH POC ABG pCO2 POC ABG pO2 ABG pO2 ABG HCO3 ABG Base Excess ABG Hemoglobin VBG pH Oxyhemoglobin Sodium Potassium Chloride Carbon Dioxide 21 L BUN Creatinine 0.7 L Glucose POC Glucose 40 L Lactic Acid Calcium AST Alkaline Phosphatase CK-MB (CK-2) CK-MB (CK-2) Rel Index Albumin TSH Urine WBC (Auto) Salicylates 02/01/17 02/01/17 02/01/17 05:17 12:19 16:44 WBC RBC Hgb Hct MCV MCH RDW Plt Count Lymph % (Auto) [place] % (Auto) Eos % (Auto) Seg Neutrophils % Seg Neuts % (Manual) Lymphocytes % (Manual) Seg Neutrophils # Seg Neutrophils # Man Lymphocytes # (Manual) APTT POC ABG pH ABG pH POC ABG pCO2 POC ABG pO2 ABG pO2 ABG HCO3 ABG Base Excess ABG Hemoglobin VBG pH Oxyhemoglobin Sodium Potassium Chloride Carbon Dioxide BUN Creatinine Glucose POC Glucose 140 H 213 H 172 H Lactic Acid Calcium AST Alkaline Phosphatase CK-MB (CK-2) CK-MB (CK-2) Rel Index Albumin TSH Urine WBC (Auto) Salicylates 02/01/17 02/02/17 02/02/17 23:59 05:14 11:24 WBC RBC Hgb Hct MCV MCH RDW Plt Count Lymph % (Auto) [place] % (Auto) Eos % (Auto) Seg Neutrophils % Seg Neuts % (Manual) Lymphocytes % (Manual) Seg Neutrophils # Seg Neutrophils # Man Lymphocytes # (Manual) APTT POC ABG pH ABG pH POC ABG pCO2 POC ABG pO2 ABG pO2 ABG HCO3 ABG Base Excess ABG Hemoglobin VBG pH Oxyhemoglobin Sodium Potassium Chloride Carbon Dioxide BUN Creatinine Glucose POC Glucose 181 H 194 H 209 H Lactic Acid Calcium AST Alkaline Phosphatase CK-MB (CK-2) CK-MB (CK-2) Rel Index Albumin TSH Urine WBC (Auto) Salicylates 02/02/17 02/02/17 02/02/17 11:46 11:46 17:47 WBC RBC 2.94 L Hgb 7.5 L Hct 23.0 L MCV 78 L MCH 25 L RDW 16.9 H Plt Count 520 H Lymph % (Auto) [place] % (Auto) Eos % (Auto) Seg Neutrophils % Seg Neuts % (Manual) Lymphocytes % (Manual) Seg Neutrophils # Seg Neutrophils # Man Lymphocytes # (Manual) APTT POC ABG pH ABG pH POC ABG pCO2 POC ABG pO2 ABG pO2 ABG HCO3 ABG Base Excess ABG Hemoglobin VBG pH Oxyhemoglobin Sodium Potassium Chloride Carbon Dioxide BUN Creatinine 0.6 L Glucose 189 H POC Glucose 147 H Lactic Acid Calcium 8.1 L AST Alkaline Phosphatase CK-MB (CK-2) CK-MB (CK-2) Rel Index Albumin TSH Urine WBC (Auto) Salicylates 02/02/17 02/03/17 02/03/17 23:32 05:53 11:19 WBC RBC Hgb Hct MCV MCH RDW Plt Count Lymph % (Auto) [place] % (Auto) Eos % (Auto) Seg Neutrophils % Seg Neuts % (Manual) Lymphocytes % (Manual) Seg Neutrophils # Seg Neutrophils # Man Lymphocytes # (Manual) APTT POC ABG pH ABG pH POC ABG pCO2 POC ABG pO2 ABG pO2 ABG HCO3 ABG Base Excess ABG Hemoglobin VBG pH Oxyhemoglobin Sodium Potassium Chloride Carbon Dioxide BUN Creatinine Glucose POC Glucose 176 H 224 H 228 H Lactic Acid Calcium AST Alkaline Phosphatase CK-MB (CK-2) CK-MB (CK-2) Rel Index Albumin TSH Urine WBC (Auto) Salicylates 02/03/17 02/03/17 02/04/17 16:59 23:38 05:45 WBC RBC Hgb Hct MCV MCH RDW Plt Count Lymph % (Auto) [place] % (Auto) Eos % (Auto) Seg Neutrophils % Seg Neuts % (Manual) Lymphocytes % (Manual) Seg Neutrophils # Seg Neutrophils # Man Lymphocytes # (Manual) APTT POC ABG pH ABG pH POC ABG pCO2 POC ABG pO2 ABG pO2 ABG HCO3 ABG Base Excess ABG Hemoglobin VBG pH Oxyhemoglobin Sodium Potassium Chloride Carbon Dioxide BUN Creatinine Glucose POC Glucose 189 H 191 H 251 H Lactic Acid Calcium AST Alkaline Phosphatase CK-MB (CK-2) CK-MB (CK-2) Rel Index Albumin TSH Urine WBC (Auto) Salicylates 02/04/17 02/04/17 02/05/17 11:20 17:20 00:17 WBC RBC Hgb Hct MCV MCH RDW Plt Count Lymph % (Auto) [place] % (Auto) Eos % (Auto) Seg Neutrophils % Seg Neuts % (Manual) Lymphocytes % (Manual) Seg Neutrophils # Seg Neutrophils # Man Lymphocytes # (Manual) APTT POC ABG pH ABG pH POC ABG pCO2 POC ABG pO2 ABG pO2 ABG HCO3 ABG Base Excess ABG Hemoglobin VBG pH Oxyhemoglobin Sodium Potassium Chloride Carbon Dioxide BUN Creatinine Glucose POC Glucose 243 H 163 H 200 H Lactic Acid Calcium AST Alkaline Phosphatase CK-MB (CK-2) CK-MB (CK-2) Rel Index Albumin TSH Urine WBC (Auto) Salicylates 02/05/17 02/05/17 02/05/17 05:38 12:38 16:29 WBC RBC Hgb Hct MCV MCH RDW Plt Count Lymph % (Auto) [place] % (Auto) Eos % (Auto) Seg Neutrophils % Seg Neuts % (Manual) Lymphocytes % (Manual) Seg Neutrophils # Seg Neutrophils # Man Lymphocytes # (Manual) APTT POC ABG pH ABG pH POC ABG pCO2 POC ABG pO2 ABG pO2 ABG HCO3 ABG Base Excess ABG Hemoglobin VBG pH Oxyhemoglobin Sodium Potassium Chloride Carbon Dioxide BUN Creatinine Glucose POC Glucose 248 H 241 H 257 H Lactic Acid Calcium AST Alkaline Phosphatase CK-MB (CK-2) CK-MB (CK-2) Rel Index Albumin TSH Urine WBC (Auto) Salicylates 02/05/17 02/06/17 02/06/17 23:56 05:30 11:50 WBC RBC Hgb Hct MCV MCH RDW Plt Count Lymph % (Auto) [place] % (Auto) Eos % (Auto) Seg Neutrophils % Seg Neuts % (Manual) Lymphocytes % (Manual) Seg Neutrophils # Seg Neutrophils # Man Lymphocytes # (Manual) APTT POC ABG pH ABG pH POC ABG pCO2 POC ABG pO2 ABG pO2 ABG HCO3 ABG Base Excess ABG Hemoglobin VBG pH Oxyhemoglobin Sodium Potassium Chloride Carbon Dioxide BUN Creatinine Glucose POC Glucose 258 H 120 H 254 H Lactic Acid Calcium AST Alkaline Phosphatase CK-MB (CK-2) CK-MB (CK-2) Rel Index Albumin TSH Urine WBC (Auto) Salicylates 02/06/17 02/06/17 02/07/17 17:11 23:50 05:22 WBC RBC Hgb Hct MCV MCH RDW Plt Count Lymph % (Auto) [place] % (Auto) Eos % (Auto) Seg Neutrophils % Seg Neuts % (Manual) Lymphocytes % (Manual) Seg Neutrophils # Seg Neutrophils # Man Lymphocytes # (Manual) APTT POC ABG pH ABG pH POC ABG pCO2 POC ABG pO2 ABG pO2 ABG HCO3 ABG Base Excess ABG Hemoglobin VBG pH Oxyhemoglobin Sodium Potassium Chloride Carbon Dioxide BUN Creatinine Glucose POC Glucose 149 H 240 H 258 H Lactic Acid Calcium AST Alkaline Phosphatase CK-MB (CK-2) CK-MB (CK-2) Rel Index Albumin TSH Urine WBC (Auto) Salicylates 02/07/17 02/07/17 02/07/17 11:15 18:33 23:59 WBC RBC Hgb Hct MCV MCH RDW Plt Count Lymph % (Auto) [place] % (Auto) Eos % (Auto) Seg Neutrophils % Seg Neuts % (Manual) Lymphocytes % (Manual) Seg Neutrophils # Seg Neutrophils # Man Lymphocytes # (Manual) APTT POC ABG pH ABG pH POC ABG pCO2 POC ABG pO2 ABG pO2 ABG HCO3 ABG Base Excess ABG Hemoglobin VBG pH Oxyhemoglobin Sodium Potassium Chloride Carbon Dioxide BUN Creatinine Glucose POC Glucose 239 H 176 H 186 H Lactic Acid Calcium AST Alkaline Phosphatase CK-MB (CK-2) CK-MB (CK-2) Rel Index Albumin TSH Urine WBC (Auto) Salicylates 02/08/17 02/08/17 02/08/17 06:15 11:55 16:55 WBC RBC Hgb Hct MCV MCH RDW Plt Count Lymph % (Auto) [place] % (Auto) Eos % (Auto) Seg Neutrophils % Seg Neuts % (Manual) Lymphocytes % (Manual) Seg Neutrophils # Seg Neutrophils # Man Lymphocytes # (Manual) APTT POC ABG pH ABG pH POC ABG pCO2 POC ABG pO2 ABG pO2 ABG HCO3 ABG Base Excess ABG Hemoglobin VBG pH Oxyhemoglobin Sodium Potassium Chloride Carbon Dioxide BUN Creatinine Glucose POC Glucose 195 H 129 H 246 H Lactic Acid Calcium AST Alkaline Phosphatase CK-MB (CK-2) CK-MB (CK-2) Rel Index Albumin TSH Urine WBC (Auto) Salicylates 02/08/17 02/09/17 02/09/17 23:51 05:51 07:24 WBC 14.7 H RBC 3.39 L Hgb 8.9 L Hct 26.4 L MCV 78 L MCH 26 L RDW 18.4 H Plt Count 670 H Lymph % (Auto) 11.8 L [place] % (Auto) Eos % (Auto) Seg Neutrophils % 81.2 H Seg Neuts % (Manual) Lymphocytes % (Manual) Seg Neutrophils # 11.9 H Seg Neutrophils # Man Lymphocytes # (Manual) APTT POC ABG pH ABG pH POC ABG pCO2 POC ABG pO2 ABG pO2 ABG HCO3 ABG Base Excess ABG Hemoglobin VBG pH Oxyhemoglobin Sodium Potassium Chloride Carbon Dioxide BUN Creatinine Glucose POC Glucose 262 H 295 H Lactic Acid Calcium AST Alkaline Phosphatase CK-MB (CK-2) CK-MB (CK-2) Rel Index Albumin TSH Urine WBC (Auto) Salicylates 02/09/17 02/09/17 02/09/17 07:24 12:08 18:39 WBC RBC Hgb Hct MCV MCH RDW Plt Count Lymph % (Auto) [place] % (Auto) Eos % (Auto) Seg Neutrophils % Seg Neuts % (Manual) Lymphocytes % (Manual) Seg Neutrophils # Seg Neutrophils # Man Lymphocytes # (Manual) APTT POC ABG pH ABG pH POC ABG pCO2 POC ABG pO2 ABG pO2 ABG HCO3 ABG Base Excess ABG Hemoglobin VBG pH Oxyhemoglobin Sodium Potassium Chloride 95.5 L Carbon Dioxide BUN 52 H Creatinine Glucose 277 H POC Glucose 236 H 151 H Lactic Acid Calcium AST Alkaline Phosphatase CK-MB (CK-2) CK-MB (CK-2) Rel Index Albumin TSH Urine WBC (Auto) Salicylates 02/10/17 02/10/17 02/10/17 00:01 05:44 11:21 WBC RBC Hgb Hct MCV MCH RDW Plt Count Lymph % (Auto) [place] % (Auto) Eos % (Auto) Seg Neutrophils % Seg Neuts % (Manual) Lymphocytes % (Manual) Seg Neutrophils # Seg Neutrophils # Man Lymphocytes # (Manual) APTT POC ABG pH ABG pH POC ABG pCO2 POC ABG pO2 ABG pO2 ABG HCO3 ABG Base Excess ABG Hemoglobin VBG pH Oxyhemoglobin Sodium Potassium Chloride Carbon Dioxide BUN Creatinine Glucose POC Glucose 210 H 201 H 233 H Lactic Acid Calcium AST Alkaline Phosphatase CK-MB (CK-2) CK-MB (CK-2) Rel Index Albumin TSH Urine WBC (Auto) Salicylates 02/10/17 02/10/17 02/11/17 17:29 23:56 05:24 WBC RBC Hgb Hct MCV MCH RDW Plt Count Lymph % (Auto) [place] % (Auto) Eos % (Auto) Seg Neutrophils % Seg Neuts % (Manual) Lymphocytes % (Manual) Seg Neutrophils # Seg Neutrophils # Man Lymphocytes # (Manual) APTT POC ABG pH ABG pH POC ABG pCO2 POC ABG pO2 ABG pO2 ABG HCO3 ABG Base Excess ABG Hemoglobin VBG pH Oxyhemoglobin Sodium Potassium Chloride Carbon Dioxide BUN Creatinine Glucose POC Glucose 167 H 191 H 135 H Lactic Acid Calcium AST Alkaline Phosphatase CK-MB (CK-2) CK-MB (CK-2) Rel Index Albumin TSH Urine WBC (Auto) Salicylates 02/11/17 02/11/17 02/11/17 12:25 17:03 23:59 WBC RBC Hgb Hct MCV MCH RDW Plt Count Lymph % (Auto) [place] % (Auto) Eos % (Auto) Seg Neutrophils % Seg Neuts % (Manual) Lymphocytes % (Manual) Seg Neutrophils # Seg Neutrophils # Man Lymphocytes # (Manual) APTT POC ABG pH ABG pH POC ABG pCO2 POC ABG pO2 ABG pO2 ABG HCO3 ABG Base Excess ABG Hemoglobin VBG pH Oxyhemoglobin Sodium Potassium Chloride Carbon Dioxide BUN Creatinine Glucose POC Glucose 275 H 172 H 215 H Lactic Acid Calcium AST Alkaline Phosphatase CK-MB (CK-2) CK-MB (CK-2) Rel Index Albumin TSH Urine WBC (Auto) Salicylates 02/12/17 02/12/17 02/12/17 05:39 11:33 17:55 WBC RBC Hgb Hct MCV MCH RDW Plt Count Lymph % (Auto) [place] % (Auto) Eos % (Auto) Seg Neutrophils % Seg Neuts % (Manual) Lymphocytes % (Manual) Seg Neutrophils # Seg Neutrophils # Man Lymphocytes # (Manual) APTT POC ABG pH ABG pH POC ABG pCO2 POC ABG pO2 ABG pO2 ABG HCO3 ABG Base Excess ABG Hemoglobin VBG pH Oxyhemoglobin Sodium Potassium Chloride Carbon Dioxide BUN Creatinine Glucose POC Glucose 261 H 217 H 172 H Lactic Acid Calcium AST Alkaline Phosphatase CK-MB (CK-2) CK-MB (CK-2) Rel Index Albumin TSH Urine WBC (Auto) Salicylates 02/13/17 02/13/17 02/13/17 00:25 06:46 11:26 WBC RBC Hgb Hct MCV MCH RDW Plt Count Lymph % (Auto) [place] % (Auto) Eos % (Auto) Seg Neutrophils % Seg Neuts % (Manual) Lymphocytes % (Manual) Seg Neutrophils # Seg Neutrophils # Man Lymphocytes # (Manual) APTT POC ABG pH ABG pH POC ABG pCO2 POC ABG pO2 ABG pO2 ABG HCO3 ABG Base Excess ABG Hemoglobin VBG pH Oxyhemoglobin Sodium Potassium Chloride Carbon Dioxide BUN Creatinine Glucose POC Glucose 207 H 219 H 231 H Lactic Acid Calcium AST Alkaline Phosphatase CK-MB (CK-2) CK-MB (CK-2) Rel Index Albumin TSH Urine WBC (Auto) Salicylates 02/13/17 02/13/17 02/14/17 17:12 23:44 05:44 WBC RBC Hgb Hct MCV MCH RDW Plt Count Lymph % (Auto) [place] % (Auto) Eos % (Auto) Seg Neutrophils % Seg Neuts % (Manual) Lymphocytes % (Manual) Seg Neutrophils # Seg Neutrophils # Man Lymphocytes # (Manual) APTT POC ABG pH ABG pH POC ABG pCO2 POC ABG pO2 ABG pO2 ABG HCO3 ABG Base Excess ABG Hemoglobin VBG pH Oxyhemoglobin Sodium Potassium Chloride Carbon Dioxide BUN Creatinine Glucose POC Glucose 190 H 256 H 184 H Lactic Acid Calcium AST Alkaline Phosphatase CK-MB (CK-2) CK-MB (CK-2) Rel Index Albumin TSH Urine WBC (Auto) Salicylates 02/14/17 02/14/17 02/14/17 12:21 17:57 23:18 WBC RBC Hgb Hct MCV MCH RDW Plt Count Lymph % (Auto) [place] % (Auto) Eos % (Auto) Seg Neutrophils % Seg Neuts % (Manual) Lymphocytes % (Manual) Seg Neutrophils # Seg Neutrophils # Man Lymphocytes # (Manual) APTT POC ABG pH ABG pH POC ABG pCO2 POC ABG pO2 ABG pO2 ABG HCO3 ABG Base Excess ABG Hemoglobin VBG pH Oxyhemoglobin Sodium Potassium Chloride Carbon Dioxide BUN Creatinine Glucose POC Glucose 233 H 155 H 165 H Lactic Acid Calcium AST Alkaline Phosphatase CK-MB (CK-2) CK-MB (CK-2) Rel Index Albumin TSH Urine WBC (Auto) Salicylates 02/15/17 02/15/17 02/15/17 05:33 11:45 17:20 WBC RBC Hgb Hct MCV MCH RDW Plt Count Lymph % (Auto) [place] % (Auto) Eos % (Auto) Seg Neutrophils % Seg Neuts % (Manual) Lymphocytes % (Manual) Seg Neutrophils # Seg Neutrophils # Man Lymphocytes # (Manual) APTT POC ABG pH ABG pH POC ABG pCO2 POC ABG pO2 ABG pO2 ABG HCO3 ABG Base Excess ABG Hemoglobin VBG pH Oxyhemoglobin Sodium Potassium Chloride Carbon Dioxide BUN Creatinine Glucose POC Glucose 239 H 130 H 189 H Lactic Acid Calcium AST Alkaline Phosphatase CK-MB (CK-2) CK-MB (CK-2) Rel Index Albumin TSH Urine WBC (Auto) Salicylates 02/16/17 02/16/17 02/16/17 00:14 05:09 12:31 WBC RBC Hgb Hct MCV MCH RDW Plt Count Lymph % (Auto) [place] % (Auto) Eos % (Auto) Seg Neutrophils % Seg Neuts % (Manual) Lymphocytes % (Manual) Seg Neutrophils # Seg Neutrophils # Man Lymphocytes # (Manual) APTT POC ABG pH ABG pH POC ABG pCO2 POC ABG pO2 ABG pO2 ABG HCO3 ABG Base Excess ABG Hemoglobin VBG pH Oxyhemoglobin Sodium Potassium Chloride Carbon Dioxide BUN Creatinine Glucose POC Glucose 197 H 226 H 178 H Lactic Acid Calcium AST Alkaline Phosphatase CK-MB (CK-2) CK-MB (CK-2) Rel Index Albumin TSH Urine WBC (Auto) Salicylates 02/16/17 02/16/17 02/17/17 16:35 23:49 05:37 WBC RBC Hgb Hct MCV MCH RDW Plt Count Lymph % (Auto) [place] % (Auto) Eos % (Auto) Seg Neutrophils % Seg Neuts % (Manual) Lymphocytes % (Manual) Seg Neutrophils # Seg Neutrophils # Man Lymphocytes # (Manual) APTT POC ABG pH ABG pH POC ABG pCO2 POC ABG pO2 ABG pO2 ABG HCO3 ABG Base Excess ABG Hemoglobin VBG pH Oxyhemoglobin Sodium Potassium Chloride Carbon Dioxide BUN Creatinine Glucose POC Glucose 174 H 62 L 153 H Lactic Acid Calcium AST Alkaline Phosphatase CK-MB (CK-2) CK-MB (CK-2) Rel Index Albumin TSH Urine WBC (Auto) Salicylates 02/17/17 02/17/17 02/17/17 11:39 17:02 22:24 WBC RBC Hgb Hct MCV MCH RDW Plt Count Lymph % (Auto) [place] % (Auto) Eos % (Auto) Seg Neutrophils % Seg Neuts % (Manual) Lymphocytes % (Manual) Seg Neutrophils # Seg Neutrophils # Man Lymphocytes # (Manual) APTT POC ABG pH ABG pH POC ABG pCO2 POC ABG pO2 ABG pO2 ABG HCO3 ABG Base Excess ABG Hemoglobin VBG pH Oxyhemoglobin Sodium Potassium Chloride Carbon Dioxide BUN Creatinine Glucose POC Glucose 231 H 112 H 116 H Lactic Acid Calcium AST Alkaline Phosphatase CK-MB (CK-2) CK-MB (CK-2) Rel Index Albumin TSH Urine WBC (Auto) Salicylates 02/18/17 02/19/17 02/19/17 15:34 05:09 07:57 WBC RBC Hgb Hct MCV MCH RDW Plt Count Lymph % (Auto) [place] % (Auto) Eos % (Auto) Seg Neutrophils % Seg Neuts % (Manual) Lymphocytes % (Manual) Seg Neutrophils # Seg Neutrophils # Man Lymphocytes # (Manual) APTT POC ABG pH ABG pH POC ABG pCO2 POC ABG pO2 ABG pO2 ABG HCO3 ABG Base Excess ABG Hemoglobin VBG pH Oxyhemoglobin Sodium Potassium Chloride Carbon Dioxide BUN Creatinine Glucose POC Glucose 215 H 218 H 283 H Lactic Acid Calcium AST Alkaline Phosphatase CK-MB (CK-2) CK-MB (CK-2) Rel Index Albumin TSH Urine WBC (Auto) Salicylates 02/19/17 02/19/17 02/20/17 14:49 22:10 05:10 WBC RBC Hgb Hct MCV MCH RDW Plt Count Lymph % (Auto) [place] % (Auto) Eos % (Auto) Seg Neutrophils % Seg Neuts % (Manual) Lymphocytes % (Manual) Seg Neutrophils # Seg Neutrophils # Man Lymphocytes # (Manual) APTT POC ABG pH ABG pH POC ABG pCO2 POC ABG pO2 ABG pO2 ABG HCO3 ABG Base Excess ABG Hemoglobin VBG pH Oxyhemoglobin Sodium Potassium Chloride Carbon Dioxide BUN Creatinine Glucose POC Glucose 290 H 169 H 209 H Lactic Acid Calcium AST Alkaline Phosphatase CK-MB (CK-2) CK-MB (CK-2) Rel Index Albumin TSH Urine WBC (Auto) Salicylates 02/20/17 02/20/17 02/21/17 15:05 21:52 02:00 WBC RBC Hgb Hct MCV MCH RDW Plt Count Lymph % (Auto) [place] % (Auto) Eos % (Auto) Seg Neutrophils % Seg Neuts % (Manual) Lymphocytes % (Manual) Seg Neutrophils # Seg Neutrophils # Man Lymphocytes # (Manual) APTT POC ABG pH ABG pH POC ABG pCO2 POC ABG pO2 ABG pO2 ABG HCO3 ABG Base Excess ABG Hemoglobin VBG pH Oxyhemoglobin Sodium Potassium Chloride Carbon Dioxide BUN Creatinine Glucose POC Glucose 172 H 209 H 216 H Lactic Acid Calcium AST Alkaline Phosphatase CK-MB (CK-2) CK-MB (CK-2) Rel Index Albumin TSH Urine WBC (Auto) Salicylates 02/21/17 02/21/17 02/21/17 04:54 14:43 17:47 WBC RBC Hgb Hct MCV MCH RDW Plt Count Lymph % (Auto) [place] % (Auto) Eos % (Auto) Seg Neutrophils % Seg Neuts % (Manual) Lymphocytes % (Manual) Seg Neutrophils # Seg Neutrophils # Man Lymphocytes # (Manual) APTT POC ABG pH ABG pH POC ABG pCO2 POC ABG pO2 ABG pO2 ABG HCO3 ABG Base Excess ABG Hemoglobin VBG pH Oxyhemoglobin Sodium Potassium Chloride Carbon Dioxide BUN Creatinine Glucose POC Glucose 227 H 290 H 220 H Lactic Acid Calcium AST Alkaline Phosphatase CK-MB (CK-2) CK-MB (CK-2) Rel Index Albumin TSH Urine WBC (Auto) Salicylates 02/21/17 02/22/17 02/22/17 22:02 04:52 15:25 WBC RBC Hgb Hct MCV MCH RDW Plt Count Lymph % (Auto) [place] % (Auto) Eos % (Auto) Seg Neutrophils % Seg Neuts % (Manual) Lymphocytes % (Manual) Seg Neutrophils # Seg Neutrophils # Man Lymphocytes # (Manual) APTT POC ABG pH ABG pH POC ABG pCO2 POC ABG pO2 ABG pO2 ABG HCO3 ABG Base Excess ABG Hemoglobin VBG pH Oxyhemoglobin Sodium Potassium Chloride Carbon Dioxide BUN Creatinine Glucose POC Glucose 246 H 212 H 236 H Lactic Acid Calcium AST Alkaline Phosphatase CK-MB (CK-2) CK-MB (CK-2) Rel Index Albumin TSH Urine WBC (Auto) Salicylates 02/22/17 02/23/17 02/23/17 21:33 06:04 10:00 WBC RBC Hgb Hct MCV MCH RDW Plt Count Lymph % (Auto) [place] % (Auto) Eos % (Auto) Seg Neutrophils % Seg Neuts % (Manual) Lymphocytes % (Manual) Seg Neutrophils # Seg Neutrophils # Man Lymphocytes # (Manual) APTT POC ABG pH ABG pH POC ABG pCO2 POC ABG pO2 ABG pO2 ABG HCO3 ABG Base Excess ABG Hemoglobin VBG pH Oxyhemoglobin Sodium Potassium Chloride Carbon Dioxide BUN Creatinine Glucose POC Glucose 255 H 208 H 174 H Lactic Acid Calcium AST Alkaline Phosphatase CK-MB (CK-2) CK-MB (CK-2) Rel Index Albumin TSH Urine WBC (Auto) Salicylates 02/23/17 02/23/17 02/23/17 12:52 17:15 21:51 WBC RBC Hgb Hct MCV MCH RDW Plt Count Lymph % (Auto) [place] % (Auto) Eos % (Auto) Seg Neutrophils % Seg Neuts % (Manual) Lymphocytes % (Manual) Seg Neutrophils # Seg Neutrophils # Man Lymphocytes # (Manual) APTT POC ABG pH ABG pH POC ABG pCO2 POC ABG pO2 ABG pO2 ABG HCO3 ABG Base Excess ABG Hemoglobin VBG pH Oxyhemoglobin Sodium Potassium Chloride Carbon Dioxide BUN Creatinine Glucose POC Glucose 203 H 269 H 205 H Lactic Acid Calcium AST Alkaline Phosphatase CK-MB (CK-2) CK-MB (CK-2) Rel Index Albumin TSH Urine WBC (Auto) Salicylates 02/24/17 02/24/17 02/24/17 10:23 17:45 21:24 WBC RBC Hgb Hct MCV MCH RDW Plt Count Lymph % (Auto) [place] % (Auto) Eos % (Auto) Seg Neutrophils % Seg Neuts % (Manual) Lymphocytes % (Manual) Seg Neutrophils # Seg Neutrophils # Man Lymphocytes # (Manual) APTT POC ABG pH ABG pH POC ABG pCO2 POC ABG pO2 ABG pO2 ABG HCO3 ABG Base Excess ABG Hemoglobin VBG pH Oxyhemoglobin Sodium Potassium Chloride Carbon Dioxide BUN Creatinine Glucose POC Glucose 280 H 239 H 254 H Lactic Acid Calcium AST Alkaline Phosphatase CK-MB (CK-2) CK-MB (CK-2) Rel Index Albumin TSH Urine WBC (Auto) Salicylates 02/25/17 02/25/17 02/25/17 02:12 05:17 14:32 WBC RBC Hgb Hct MCV MCH RDW Plt Count Lymph % (Auto) [place] % (Auto) Eos % (Auto) Seg Neutrophils % Seg Neuts % (Manual) Lymphocytes % (Manual) Seg Neutrophils # Seg Neutrophils # Man Lymphocytes # (Manual) APTT POC ABG pH ABG pH POC ABG pCO2 POC ABG pO2 ABG pO2 ABG HCO3 ABG Base Excess ABG Hemoglobin VBG pH Oxyhemoglobin Sodium Potassium Chloride Carbon Dioxide BUN Creatinine Glucose POC Glucose 296 H 332 H 353 H Lactic Acid Calcium AST Alkaline Phosphatase CK-MB (CK-2) CK-MB (CK-2) Rel Index Albumin TSH Urine WBC (Auto) Salicylates 02/25/17 02/26/17 02/26/17 22:14 00:37 05:52 WBC RBC Hgb Hct MCV MCH RDW Plt Count Lymph % (Auto) [place] % (Auto) Eos % (Auto) Seg Neutrophils % Seg Neuts % (Manual) Lymphocytes % (Manual) Seg Neutrophils # Seg Neutrophils # Man Lymphocytes # (Manual) APTT POC ABG pH ABG pH POC ABG pCO2 POC ABG pO2 ABG pO2 ABG HCO3 ABG Base Excess ABG Hemoglobin VBG pH Oxyhemoglobin Sodium Potassium Chloride Carbon Dioxide BUN Creatinine Glucose POC Glucose 201 H 233 H 269 H Lactic Acid Calcium AST Alkaline Phosphatase CK-MB (CK-2) CK-MB (CK-2) Rel Index Albumin TSH Urine WBC (Auto) Salicylates 02/26/17 02/26/17 02/26/17 11:48 13:49 21:26 WBC RBC Hgb Hct MCV MCH RDW Plt Count Lymph % (Auto) [place] % (Auto) Eos % (Auto) Seg Neutrophils % Seg Neuts % (Manual) Lymphocytes % (Manual) Seg Neutrophils # Seg Neutrophils # Man Lymphocytes # (Manual) APTT POC ABG pH ABG pH POC ABG pCO2 POC ABG pO2 ABG pO2 ABG HCO3 ABG Base Excess ABG Hemoglobin VBG pH Oxyhemoglobin Sodium Potassium Chloride Carbon Dioxide BUN Creatinine Glucose POC Glucose 333 H 322 H 244 H Lactic Acid Calcium AST Alkaline Phosphatase CK-MB (CK-2) CK-MB (CK-2) Rel Index Albumin TSH Urine WBC (Auto) Salicylates 02/27/17 02/27/17 02/27/17 05:27 13:51 21:48 WBC RBC Hgb Hct MCV MCH RDW Plt Count Lymph % (Auto) [place] % (Auto) Eos % (Auto) Seg Neutrophils % Seg Neuts % (Manual) Lymphocytes % (Manual) Seg Neutrophils # Seg Neutrophils # Man Lymphocytes # (Manual) APTT POC ABG pH ABG pH POC ABG pCO2 POC ABG pO2 ABG pO2 ABG HCO3 ABG Base Excess ABG Hemoglobin VBG pH Oxyhemoglobin Sodium Potassium Chloride Carbon Dioxide BUN Creatinine Glucose POC Glucose 217 H 239 H 254 H Lactic Acid Calcium AST Alkaline Phosphatase CK-MB (CK-2) CK-MB (CK-2) Rel Index Albumin TSH Urine WBC (Auto) Salicylates 02/28/17 02/28/17 02/28/17 05:38 11:00 19:44 WBC RBC Hgb Hct MCV MCH RDW Plt Count Lymph % (Auto) [place] % (Auto) Eos % (Auto) Seg Neutrophils % Seg Neuts % (Manual) Lymphocytes % (Manual) Seg Neutrophils # Seg Neutrophils # Man Lymphocytes # (Manual) APTT POC ABG pH ABG pH POC ABG pCO2 POC ABG pO2 ABG pO2 ABG HCO3 ABG Base Excess ABG Hemoglobin VBG pH Oxyhemoglobin Sodium Potassium Chloride Carbon Dioxide BUN Creatinine Glucose POC Glucose 325 H 203 H 116 H Lactic Acid Calcium AST Alkaline Phosphatase CK-MB (CK-2) CK-MB (CK-2) Rel Index Albumin TSH Urine WBC (Auto) Salicylates 03/01/17 03/01/17 03/01/17 00:08 05:31 12:17 WBC RBC Hgb Hct MCV MCH RDW Plt Count Lymph % (Auto) [place] % (Auto) Eos % (Auto) Seg Neutrophils % Seg Neuts % (Manual) Lymphocytes % (Manual) Seg Neutrophils # Seg Neutrophils # Man Lymphocytes # (Manual) APTT POC ABG pH ABG pH POC ABG pCO2 POC ABG pO2 ABG pO2 ABG HCO3 ABG Base Excess ABG Hemoglobin VBG pH Oxyhemoglobin Sodium Potassium Chloride Carbon Dioxide BUN Creatinine Glucose POC Glucose 202 H 183 H 184 H Lactic Acid Calcium AST Alkaline Phosphatase CK-MB (CK-2) CK-MB (CK-2) Rel Index Albumin TSH Urine WBC (Auto) Salicylates 03/02/17 03/02/17 03/02/17 00:12 05:58 18:22 WBC RBC Hgb Hct MCV MCH RDW Plt Count Lymph % (Auto) [place] % (Auto) Eos % (Auto) Seg Neutrophils % Seg Neuts % (Manual) Lymphocytes % (Manual) Seg Neutrophils # Seg Neutrophils # Man Lymphocytes # (Manual) APTT POC ABG pH ABG pH POC ABG pCO2 POC ABG pO2 ABG pO2 ABG HCO3 ABG Base Excess ABG Hemoglobin VBG pH Oxyhemoglobin Sodium Potassium Chloride Carbon Dioxide BUN Creatinine Glucose POC Glucose 117 H 176 H 156 H Lactic Acid Calcium AST Alkaline Phosphatase CK-MB (CK-2) CK-MB (CK-2) Rel Index Albumin TSH Urine WBC (Auto) Salicylates 03/02/17 03/03/17 03/03/17 23:51 05:44 11:32 WBC RBC Hgb Hct MCV MCH RDW Plt Count Lymph % (Auto) [place] % (Auto) Eos % (Auto) Seg Neutrophils % Seg Neuts % (Manual) Lymphocytes % (Manual) Seg Neutrophils # Seg Neutrophils # Man Lymphocytes # (Manual) APTT POC ABG pH ABG pH POC ABG pCO2 POC ABG pO2 ABG pO2 ABG HCO3 ABG Base Excess ABG Hemoglobin VBG pH Oxyhemoglobin Sodium Potassium Chloride Carbon Dioxide BUN Creatinine Glucose POC Glucose 211 H 117 H 133 H Lactic Acid Calcium AST Alkaline Phosphatase CK-MB (CK-2) CK-MB (CK-2) Rel Index Albumin TSH Urine WBC (Auto) Salicylates 03/03/17 03/03/17 03/04/17 17:43 23:17 05:30 WBC RBC Hgb Hct MCV MCH RDW Plt Count Lymph % (Auto) [place] % (Auto) Eos % (Auto) Seg Neutrophils % Seg Neuts % (Manual) Lymphocytes % (Manual) Seg Neutrophils # Seg Neutrophils # Man Lymphocytes # (Manual) APTT POC ABG pH ABG pH POC ABG pCO2 POC ABG pO2 ABG pO2 ABG HCO3 ABG Base Excess ABG Hemoglobin VBG pH Oxyhemoglobin Sodium Potassium Chloride Carbon Dioxide BUN Creatinine Glucose POC Glucose 206 H 170 H 126 H Lactic Acid Calcium AST Alkaline Phosphatase CK-MB (CK-2) CK-MB (CK-2) Rel Index Albumin TSH Urine WBC (Auto) Salicylates 03/04/17 03/04/17 03/05/17 12:17 17:27 05:20 WBC RBC Hgb Hct MCV MCH RDW Plt Count Lymph % (Auto) [place] % (Auto) Eos % (Auto) Seg Neutrophils % Seg Neuts % (Manual) Lymphocytes % (Manual) Seg Neutrophils # Seg Neutrophils # Man Lymphocytes # (Manual) APTT POC ABG pH ABG pH POC ABG pCO2 POC ABG pO2 ABG pO2 ABG HCO3 ABG Base Excess ABG Hemoglobin VBG pH Oxyhemoglobin Sodium Potassium Chloride Carbon Dioxide BUN Creatinine Glucose POC Glucose 135 H 121 H 185 H Lactic Acid Calcium AST Alkaline Phosphatase CK-MB (CK-2) CK-MB (CK-2) Rel Index Albumin TSH Urine WBC (Auto) Salicylates
[2017-03-06] MEDS: HumuLIN R SUB-Q SCH ×5 (05:33→19:01)
[2017-03-06] MEDS: SYNTHROID PO SCH (06:24)
[2017-03-06] MEDS: LEVEMIR (NF) SUB-Q SCH (09:50)
[2017-03-06] MEDS: PEPCID PO SCH ×2 (09:51→22:24)
[2017-03-06] MEDS: HEPARIN SUB-Q SCH ×2 (09:51→22:24)
--- NOTE | 2017-03-06 12:04 | Progress Note ---
Assessment and Plan 51 y/o male found down, concern for sepsis and now encephalopathic requiring mechanical ventilation. 1. continue supportive care 2. 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 I am aware that he is an AND but trach will not fix this problem and is not in my professional opinion the right thing to do for this patient. Most likely he will never be weaned from the vent and will remain in a persistent vegatative state. 3. Patient is not on abx therapy and currently does not need this 4. Overall prognosis continues to be poor. Subjective Date of service: 03/06/17 Principal diagnosis: Acute respiratory failure,encephalopathy Interval history: No acute events. Objective Vital Signs - 12hr 03/06/17 03/06/17 03/06/17 02:00 03:17 03:23 Temperature 101.8 F H 101.8 F H Pulse Rate 81 Pulse Rate [ From Monitor] Respiratory 16 Rate Blood Pressure 124/72 O2 Sat by Pulse Oximetry 03/06/17 03/06/17 03/06/17 03:25 04:00 06:00 Temperature Pulse Rate 71 71 71 Pulse Rate [ 70 From Monitor] Respiratory 17 17 Rate Blood Pressure 124/72 125/80 127/80 O2 Sat by Pulse 100 100 98 Oximetry 03/06/17 03/06/17 03/06/17 07:00 08:00 08:45 Temperature 97.6 F Pulse Rate 69 66 Pulse Rate [ 69 From Monitor] Respiratory 17 17 Rate Blood Pressure 137/83 137/83 O2 Sat by Pulse 98 98 Oximetry 03/06/17 03/06/17 10:00 11:22 Temperature Pulse Rate 65 64 Pulse Rate [ From Monitor] Respiratory 17 17 Rate Blood Pressure 131/80 131/80 O2 Sat by Pulse 100 100 Oximetry Constitutional: no acute distress, alert, other (orally intubated, on vent support) Eyes: non-icteric ENT: oropharynx moist Neck: supple, no JVD Effort: normal Ascultation: Bilateral: clear, diminished breath sounds Cardiovascular: regular rate and rhythm Gastrointestinal: normoactive bowel sounds, soft, non-tender, non-distended Integumentary: normal Extremities: no cyanosis, no edema, pink and warm Neurologic: other (awake spontaneously, not not following any commands. Fixed stare.) Psychiatric: other (unable to obtain) CBC and BMP: 02/09/17 07:24 02/09/17 07:24 ABG, PT/INR, D-dimer: ABG POC ABG pH 7.442 (7.35-7.45) 01/31/17 18:55 ABG pH 7.420 pH Units (7.350-7.450) 01/17/17 04:35 POC ABG pCO2 32.8 (35-45) L 01/31/17 18:55 ABG pCO2 34.5 mm Hg 01/17/17 04:35 POC ABG pO2 82 (80-105) 01/31/17 18:55 ABG pO2 160.3 mm Hg (80.0-90.0) H 01/17/17 04:35 POC ABG HCO3 22.4 01/31/17 18:55 POC ABG Total CO2 23 01/31/17 18:55 POC ABG O2 Sat 97 01/31/17 18:55 ABG O2 Saturation 99.0 % (95.0-99.0) 01/17/17 04:35 PT/INR, D-dimer PT 14.1 Sec. (12.2-14.9) 01/17/17 04:10 INR 1.04 (0.87-1.13) 01/17/17 04:10 Abnormal lab findings: Abnormal Labs 01/09/17 01/09/17 01/09/17 10:16 10:16 10:16 WBC RBC Hgb 9.7 L Hct 28.4 L MCV 76 L MCH 26 L RDW 17.2 H Plt Count 448 H Lymph % (Auto) [place] % (Auto) Eos % (Auto) Seg Neutrophils % 79.5 H Seg Neuts % (Manual) Lymphocytes % (Manual) Seg Neutrophils # Seg Neutrophils # Man Lymphocytes # (Manual) APTT 39.6 H POC ABG pH ABG pH POC ABG pCO2 POC ABG pO2 ABG pO2 ABG HCO3 ABG Base Excess ABG Hemoglobin VBG pH Oxyhemoglobin Sodium 132 L Potassium Chloride 96.7 L Carbon Dioxide 21 L BUN 34 H Creatinine Glucose POC Glucose Lactic Acid Calcium 8.3 L AST Alkaline Phosphatase 151 H CK-MB (CK-2) 7.1 H CK-MB (CK-2) Rel Index 5.2 H Albumin 3.3 L TSH Urine WBC (Auto) Salicylates 1001/09/17 01/09/17 10:16 10:16 10:16 WBC RBC Hgb Hct MCV MCH RDW Plt Count Lymph % (Auto) [place] % (Auto) Eos % (Auto) Seg Neutrophils % Seg Neuts % (Manual) Lymphocytes % (Manual) Seg Neutrophils # Seg Neutrophils # Man Lymphocytes # (Manual) APTT POC ABG pH ABG pH POC ABG pCO2 POC ABG pO2 ABG pO2 ABG HCO3 ABG Base Excess ABG Hemoglobin VBG pH 7.284 L Oxyhemoglobin Sodium Potassium Chloride Carbon Dioxide BUN Creatinine Glucose POC Glucose Lactic Acid Calcium AST Alkaline Phosphatase CK-MB (CK-2) CK-MB (CK-2) Rel Index Albumin TSH 52.800 H Urine WBC (Auto) Salicylates < 0.3 L 01/09/17 01/09/17 01/09/17 10:23 11:14 12:49 WBC RBC Hgb Hct MCV MCH RDW Plt Count Lymph % (Auto) [place] % (Auto) Eos % (Auto) Seg Neutrophils % Seg Neuts % (Manual) Lymphocytes % (Manual) Seg Neutrophils # Seg Neutrophils # Man Lymphocytes # (Manual) APTT POC ABG pH ABG pH POC ABG pCO2 POC ABG pO2 643 H ABG pO2 ABG HCO3 ABG Base Excess ABG Hemoglobin VBG pH Oxyhemoglobin Sodium Potassium Chloride Carbon Dioxide BUN Creatinine Glucose POC Glucose < 40 L Lactic Acid Calcium AST Alkaline Phosphatase CK-MB (CK-2) CK-MB (CK-2) Rel Index Albumin TSH Urine WBC (Auto) 61.0 H Salicylates 01/09/17 01/09/17 01/09/17 13:13 14:21 15:09 WBC RBC Hgb Hct MCV MCH RDW Plt Count Lymph % (Auto) [place] % (Auto) Eos % (Auto) Seg Neutrophils % Seg Neuts % (Manual) Lymphocytes % (Manual) Seg Neutrophils # Seg Neutrophils # Man Lymphocytes # (Manual) APTT POC ABG pH ABG pH POC ABG pCO2 POC ABG pO2 ABG pO2 ABG HCO3 ABG Base Excess ABG Hemoglobin VBG pH Oxyhemoglobin Sodium Potassium Chloride Carbon Dioxide BUN Creatinine Glucose POC Glucose 128 H 65 L 120 H Lactic Acid Calcium AST Alkaline Phosphatase CK-MB (CK-2) CK-MB (CK-2) Rel Index Albumin TSH Urine WBC (Auto) Salicylates 1001/09/17 01/10/17 16:28 17:14 04:30 WBC 24.1 H RBC 3.38 L Hgb 8.5 L Hct 26.0 L MCV 77 L MCH 25 L RDW 17.9 H Plt Count 474 H Lymph % (Auto) [place] % (Auto) Eos % (Auto) Seg Neutrophils % Seg Neuts % (Manual) 88.0 H Lymphocytes % (Manual) 4.0 L Seg Neutrophils # Seg Neutrophils # Man 21.2 H Lymphocytes # (Manual) 1.0 L APTT POC ABG pH ABG pH POC ABG pCO2 POC ABG pO2 ABG pO2 ABG HCO3 ABG Base Excess ABG Hemoglobin VBG pH Oxyhemoglobin Sodium Potassium Chloride Carbon Dioxide BUN Creatinine Glucose POC Glucose 44 L 112 H Lactic Acid Calcium AST Alkaline Phosphatase CK-MB (CK-2) CK-MB (CK-2) Rel Index Albumin TSH Urine WBC (Auto) Salicylates 01/10/17 01/10/17 01/10/17 04:30 05:41 05:45 WBC RBC Hgb Hct MCV MCH RDW Plt Count Lymph % (Auto) [place] % (Auto) Eos % (Auto) Seg Neutrophils % Seg Neuts % (Manual) Lymphocytes % (Manual) Seg Neutrophils # Seg Neutrophils # Man Lymphocytes # (Manual) APTT POC ABG pH ABG pH POC ABG pCO2 26.6 L POC ABG pO2 207 H ABG pO2 ABG HCO3 ABG Base Excess ABG Hemoglobin VBG pH Oxyhemoglobin Sodium Potassium Chloride Carbon Dioxide 17 L BUN 27 H Creatinine Glucose POC Glucose 68 L Lactic Acid Calcium 7.5 L AST Alkaline Phosphatase CK-MB (CK-2) CK-MB (CK-2) Rel Index Albumin TSH Urine WBC (Auto) Salicylates 01/10/17 01/10/17 01/10/17 07:47 10:50 13:41 WBC RBC Hgb Hct MCV MCH RDW Plt Count Lymph % (Auto) [place] % (Auto) Eos % (Auto) Seg Neutrophils % Seg Neuts % (Manual) Lymphocytes % (Manual) Seg Neutrophils # Seg Neutrophils # Man Lymphocytes # (Manual) APTT POC ABG pH ABG pH POC ABG pCO2 POC ABG pO2 ABG pO2 ABG HCO3 ABG Base Excess ABG Hemoglobin VBG pH Oxyhemoglobin Sodium Potassium Chloride Carbon Dioxide BUN Creatinine Glucose POC Glucose 148 H 165 H 114 H Lactic Acid Calcium AST Alkaline Phosphatase CK-MB (CK-2) CK-MB (CK-2) Rel Index Albumin TSH Urine WBC (Auto) Salicylates 01/10/17 01/10/17 01/10/17 20:20 21:39 23:24 WBC RBC Hgb Hct MCV MCH RDW Plt Count Lymph % (Auto) [place] % (Auto) Eos % (Auto) Seg Neutrophils % Seg Neuts % (Manual) Lymphocytes % (Manual) Seg Neutrophils # Seg Neutrophils # Man Lymphocytes # (Manual) APTT POC ABG pH ABG pH POC ABG pCO2 POC ABG pO2 ABG pO2 ABG HCO3 ABG Base Excess ABG Hemoglobin VBG pH Oxyhemoglobin Sodium Potassium Chloride Carbon Dioxide BUN Creatinine Glucose POC Glucose 150 H 175 H 155 H Lactic Acid Calcium AST Alkaline Phosphatase CK-MB (CK-2) CK-MB (CK-2) Rel Index Albumin TSH Urine WBC (Auto) Salicylates 01/11/17 01/11/17 01/11/17 00:19 04:06 05:20 WBC 15.2 H RBC 3.40 L Hgb 8.9 L Hct 26.3 L MCV 78 L MCH 26 L RDW 18.6 H Plt Count 462 H Lymph % (Auto) 13.2 L [place] % (Auto) Eos % (Auto) Seg Neutrophils % 80.8 H Seg Neuts % (Manual) Lymphocytes % (Manual) Seg Neutrophils # 12.3 H Seg Neutrophils # Man Lymphocytes # (Manual) APTT POC ABG pH 7.463 H ABG pH POC ABG pCO2 26.2 L POC ABG pO2 185 H ABG pO2 ABG HCO3 ABG Base Excess ABG Hemoglobin VBG pH Oxyhemoglobin Sodium Potassium Chloride Carbon Dioxide BUN Creatinine Glucose POC Glucose 163 H Lactic Acid Calcium AST Alkaline Phosphatase CK-MB (CK-2) CK-MB (CK-2) Rel Index Albumin TSH Urine WBC (Auto) Salicylates 01/11/17 01/11/17 01/11/17 05:20 06:21 07:57 WBC RBC Hgb Hct MCV MCH RDW Plt Count Lymph % (Auto) [place] % (Auto) Eos % (Auto) Seg Neutrophils % Seg Neuts % (Manual) Lymphocytes % (Manual) Seg Neutrophils # Seg Neutrophils # Man Lymphocytes # (Manual) APTT POC ABG pH ABG pH POC ABG pCO2 POC ABG pO2 ABG pO2 ABG HCO3 ABG Base Excess ABG Hemoglobin VBG pH Oxyhemoglobin Sodium Potassium 3.4 L Chloride 111.5 H Carbon Dioxide 17 L BUN Creatinine Glucose 147 H POC Glucose 139 H 188 H Lactic Acid Calcium 8.0 L AST Alkaline Phosphatase CK-MB (CK-2) CK-MB (CK-2) Rel Index Albumin TSH Urine WBC (Auto) Salicylates 01/11/17 01/11/17 01/11/17 11:46 16:50 23:15 WBC RBC Hgb Hct MCV MCH RDW Plt Count Lymph % (Auto) [place] % (Auto) Eos % (Auto) Seg Neutrophils % Seg Neuts % (Manual) Lymphocytes % (Manual) Seg Neutrophils # Seg Neutrophils # Man Lymphocytes # (Manual) APTT POC ABG pH ABG pH POC ABG pCO2 POC ABG pO2 ABG pO2 ABG HCO3 ABG Base Excess ABG Hemoglobin VBG pH Oxyhemoglobin Sodium Potassium Chloride Carbon Dioxide BUN Creatinine Glucose POC Glucose 199 H 235 H 155 H Lactic Acid Calcium AST Alkaline Phosphatase CK-MB (CK-2) CK-MB (CK-2) Rel Index Albumin TSH Urine WBC (Auto) Salicylates 01/12/17 01/12/17 01/12/17 05:02 06:56 14:50 WBC RBC Hgb Hct MCV MCH RDW Plt Count Lymph % (Auto) [place] % (Auto) Eos % (Auto) Seg Neutrophils % Seg Neuts % (Manual) Lymphocytes % (Manual) Seg Neutrophils # Seg Neutrophils # Man Lymphocytes # (Manual) APTT POC ABG pH ABG pH POC ABG pCO2 28.0 L POC ABG pO2 178 H ABG pO2 ABG HCO3 ABG Base Excess ABG Hemoglobin VBG pH Oxyhemoglobin Sodium Potassium Chloride Carbon Dioxide BUN Creatinine Glucose POC Glucose 119 H 164 H Lactic Acid Calcium AST Alkaline Phosphatase CK-MB (CK-2) CK-MB (CK-2) Rel Index Albumin TSH Urine WBC (Auto) Salicylates 01/13/17 01/13/17 01/13/17 03:37 03:37 04:26 WBC RBC 3.61 L Hgb 9.3 L Hct 28.0 L MCV 78 L MCH 26 L RDW 18.2 H Plt Count Lymph % (Auto) [place] % (Auto) Eos % (Auto) Seg Neutrophils % Seg Neuts % (Manual) Lymphocytes % (Manual) Seg Neutrophils # Seg Neutrophils # Man Lymphocytes # (Manual) APTT POC ABG pH 7.485 H ABG pH POC ABG pCO2 25.4 L POC ABG pO2 73 L ABG pO2 ABG HCO3 ABG Base Excess ABG Hemoglobin VBG pH Oxyhemoglobin Sodium Potassium Chloride 112.4 H Carbon Dioxide 19 L BUN Creatinine Glucose 118 H POC Glucose Lactic Acid Calcium 8.0 L AST Alkaline Phosphatase CK-MB (CK-2) CK-MB (CK-2) Rel Index Albumin TSH Urine WBC (Auto) Salicylates 01/13/17 01/13/17 01/13/17 06:15 11:50 17:31 WBC RBC Hgb Hct MCV MCH RDW Plt Count Lymph % (Auto) [place] % (Auto) Eos % (Auto) Seg Neutrophils % Seg Neuts % (Manual) Lymphocytes % (Manual) Seg Neutrophils # Seg Neutrophils # Man Lymphocytes # (Manual) APTT POC ABG pH ABG pH POC ABG pCO2 POC ABG pO2 ABG pO2 ABG HCO3 ABG Base Excess ABG Hemoglobin VBG pH Oxyhemoglobin Sodium Potassium Chloride Carbon Dioxide BUN Creatinine Glucose POC Glucose 116 H 171 H 203 H Lactic Acid Calcium AST Alkaline Phosphatase CK-MB (CK-2) CK-MB (CK-2) Rel Index Albumin TSH Urine WBC (Auto) Salicylates 01/14/17 01/14/17 01/14/17 00:02 04:50 04:50 WBC RBC 3.32 L Hgb 8.5 L Hct 26.1 L MCV 79 L MCH 26 L RDW 18.2 H Plt Count Lymph % (Auto) [place] % (Auto) 9.0 H Eos % (Auto) Seg Neutrophils % Seg Neuts % (Manual) Lymphocytes % (Manual) Seg Neutrophils # Seg Neutrophils # Man Lymphocytes # (Manual) APTT POC ABG pH ABG pH POC ABG pCO2 POC ABG pO2 ABG pO2 ABG HCO3 ABG Base Excess ABG Hemoglobin VBG pH Oxyhemoglobin Sodium Potassium Chloride 112.5 H Carbon Dioxide BUN Creatinine Glucose 149 H POC Glucose 157 H Lactic Acid Calcium 8.1 L AST Alkaline Phosphatase CK-MB (CK-2) CK-MB (CK-2) Rel Index Albumin TSH Urine WBC (Auto) Salicylates 01/14/17 01/14/17 01/14/17 05:10 11:27 14:07 WBC RBC Hgb Hct MCV MCH RDW Plt Count Lymph % (Auto) [place] % (Auto) Eos % (Auto) Seg Neutrophils % Seg Neuts % (Manual) Lymphocytes % (Manual) Seg Neutrophils # Seg Neutrophils # Man Lymphocytes # (Manual) APTT POC ABG pH ABG pH POC ABG pCO2 POC ABG pO2 ABG pO2 ABG HCO3 ABG Base Excess ABG Hemoglobin VBG pH Oxyhemoglobin Sodium Potassium Chloride Carbon Dioxide BUN Creatinine Glucose POC Glucose 176 H 147 H Lactic Acid Calcium AST Alkaline Phosphatase CK-MB (CK-2) CK-MB (CK-2) Rel Index Albumin TSH Urine WBC (Auto) 53.0 H Salicylates 01/14/17 01/15/17 01/15/17 16:52 00:04 05:26 WBC RBC Hgb Hct MCV MCH RDW Plt Count Lymph % (Auto) [place] % (Auto) Eos % (Auto) Seg Neutrophils % Seg Neuts % (Manual) Lymphocytes % (Manual) Seg Neutrophils # Seg Neutrophils # Man Lymphocytes # (Manual) APTT POC ABG pH ABG pH POC ABG pCO2 POC ABG pO2 ABG pO2 ABG HCO3 ABG Base Excess ABG Hemoglobin VBG pH Oxyhemoglobin Sodium Potassium Chloride Carbon Dioxide BUN Creatinine Glucose POC Glucose 131 H 193 H 215 H Lactic Acid Calcium AST Alkaline Phosphatase CK-MB (CK-2) CK-MB (CK-2) Rel Index Albumin TSH Urine WBC (Auto) Salicylates 01/15/17 01/15/17 01/15/17 11:49 17:47 21:33 WBC RBC Hgb Hct MCV MCH RDW Plt Count Lymph % (Auto) [place] % (Auto) Eos % (Auto) Seg Neutrophils % Seg Neuts % (Manual) Lymphocytes % (Manual) Seg Neutrophils # Seg Neutrophils # Man Lymphocytes # (Manual) APTT POC ABG pH ABG pH POC ABG pCO2 POC ABG pO2 ABG pO2 ABG HCO3 ABG Base Excess ABG Hemoglobin VBG pH Oxyhemoglobin Sodium Potassium Chloride Carbon Dioxide BUN Creatinine Glucose POC Glucose 121 H 211 H 275 H Lactic Acid Calcium AST Alkaline Phosphatase CK-MB (CK-2) CK-MB (CK-2) Rel Index Albumin TSH Urine WBC (Auto) Salicylates 01/16/17 01/16/17 01/16/17 04:30 05:28 13:45 WBC RBC Hgb Hct MCV MCH RDW Plt Count Lymph % (Auto) [place] % (Auto) Eos % (Auto) Seg Neutrophils % Seg Neuts % (Manual) Lymphocytes % (Manual) Seg Neutrophils # Seg Neutrophils # Man Lymphocytes # (Manual) APTT POC ABG pH ABG pH 7.457 H POC ABG pCO2 POC ABG pO2 ABG pO2 55.1 L ABG HCO3 19.4 L ABG Base Excess -4.0 L ABG Hemoglobin 6.8 L VBG pH Oxyhemoglobin 94.9 L Sodium Potassium Chloride Carbon Dioxide BUN Creatinine Glucose POC Glucose 271 H 236 H Lactic Acid Calcium AST Alkaline Phosphatase CK-MB (CK-2) CK-MB (CK-2) Rel Index Albumin TSH Urine WBC (Auto) Salicylates 01/16/17 01/17/17 01/17/17 21:39 04:10 04:10 WBC 4.4 L RBC 2.98 L Hgb 7.7 L Hct 23.3 L MCV 78 L MCH 26 L RDW 18.1 H Plt Count Lymph % (Auto) [place] % (Auto) Eos % (Auto) Seg Neutrophils % Seg Neuts % (Manual) Lymphocytes % (Manual) Seg Neutrophils # Seg Neutrophils # Man Lymphocytes # (Manual) APTT POC ABG pH ABG pH POC ABG pCO2 POC ABG pO2 ABG pO2 ABG HCO3 ABG Base Excess ABG Hemoglobin VBG pH Oxyhemoglobin Sodium Potassium 3.3 L Chloride 108.7 H Carbon Dioxide 20 L BUN 8 L Creatinine Glucose 202 H POC Glucose 258 H Lactic Acid Calcium 7.6 L AST Alkaline Phosphatase CK-MB (CK-2) CK-MB (CK-2) Rel Index Albumin TSH Urine WBC (Auto) Salicylates 01/17/17 01/17/17 01/17/17 04:35 12:23 16:01 WBC RBC Hgb Hct MCV MCH RDW Plt Count Lymph % (Auto) [place] % (Auto) Eos % (Auto) Seg Neutrophils % Seg Neuts % (Manual) Lymphocytes % (Manual) Seg Neutrophils # Seg Neutrophils # Man Lymphocytes # (Manual) APTT POC ABG pH ABG pH POC ABG pCO2 POC ABG pO2 ABG pO2 160.3 H ABG HCO3 ABG Base Excess -2.3 L ABG Hemoglobin 7.9 L VBG pH Oxyhemoglobin Sodium Potassium Chloride Carbon Dioxide BUN Creatinine Glucose POC Glucose 321 H 239 H Lactic Acid Calcium AST Alkaline Phosphatase CK-MB (CK-2) CK-MB (CK-2) Rel Index Albumin TSH Urine WBC (Auto) Salicylates 01/18/17 01/18/17 01/18/17 05:07 12:09 17:54 WBC RBC Hgb Hct MCV MCH RDW Plt Count Lymph % (Auto) [place] % (Auto) Eos % (Auto) Seg Neutrophils % Seg Neuts % (Manual) Lymphocytes % (Manual) Seg Neutrophils # Seg Neutrophils # Man Lymphocytes # (Manual) APTT POC ABG pH ABG pH POC ABG pCO2 POC ABG pO2 ABG pO2 ABG HCO3 ABG Base Excess ABG Hemoglobin VBG pH Oxyhemoglobin Sodium Potassium Chloride Carbon Dioxide BUN Creatinine Glucose POC Glucose 155 H 203 H 132 H Lactic Acid Calcium AST Alkaline Phosphatase CK-MB (CK-2) CK-MB (CK-2) Rel Index Albumin TSH Urine WBC (Auto) Salicylates 01/18/17 01/19/17 01/19/17 23:43 04:28 12:11 WBC RBC Hgb Hct MCV MCH RDW Plt Count Lymph % (Auto) [place] % (Auto) Eos % (Auto) Seg Neutrophils % Seg Neuts % (Manual) Lymphocytes % (Manual) Seg Neutrophils # Seg Neutrophils # Man Lymphocytes # (Manual) APTT POC ABG pH ABG pH POC ABG pCO2 POC ABG pO2 ABG pO2 ABG HCO3 ABG Base Excess ABG Hemoglobin VBG pH Oxyhemoglobin Sodium Potassium Chloride Carbon Dioxide BUN Creatinine Glucose POC Glucose 125 H 182 H 153 H Lactic Acid Calcium AST Alkaline Phosphatase CK-MB (CK-2) CK-MB (CK-2) Rel Index Albumin TSH Urine WBC (Auto) Salicylates 01/19/17 01/20/17 01/20/17 17:23 00:12 05:44 WBC RBC Hgb Hct MCV MCH RDW Plt Count Lymph % (Auto) [place] % (Auto) Eos % (Auto) Seg Neutrophils % Seg Neuts % (Manual) Lymphocytes % (Manual) Seg Neutrophils # Seg Neutrophils # Man Lymphocytes # (Manual) APTT POC ABG pH ABG pH POC ABG pCO2 POC ABG pO2 ABG pO2 ABG HCO3 ABG Base Excess ABG Hemoglobin VBG pH Oxyhemoglobin Sodium Potassium Chloride Carbon Dioxide BUN Creatinine Glucose POC Glucose 66 L 139 H 176 H Lactic Acid Calcium AST Alkaline Phosphatase CK-MB (CK-2) CK-MB (CK-2) Rel Index Albumin TSH Urine WBC (Auto) Salicylates 01/20/17 01/20/17 01/20/17 11:48 17:42 23:43 WBC RBC Hgb Hct MCV MCH RDW Plt Count Lymph % (Auto) [place] % (Auto) Eos % (Auto) Seg Neutrophils % Seg Neuts % (Manual) Lymphocytes % (Manual) Seg Neutrophils # Seg Neutrophils # Man Lymphocytes # (Manual) APTT POC ABG pH ABG pH POC ABG pCO2 POC ABG pO2 ABG pO2 ABG HCO3 ABG Base Excess ABG Hemoglobin VBG pH Oxyhemoglobin Sodium Potassium Chloride Carbon Dioxide BUN Creatinine Glucose POC Glucose 218 H 132 H 178 H Lactic Acid Calcium AST Alkaline Phosphatase CK-MB (CK-2) CK-MB (CK-2) Rel Index Albumin TSH Urine WBC (Auto) Salicylates 01/21/17 01/21/17 01/21/17 05:34 11:17 23:37 WBC RBC Hgb Hct MCV MCH RDW Plt Count Lymph % (Auto) [place] % (Auto) Eos % (Auto) Seg Neutrophils % Seg Neuts % (Manual) Lymphocytes % (Manual) Seg Neutrophils # Seg Neutrophils # Man Lymphocytes # (Manual) APTT POC ABG pH ABG pH POC ABG pCO2 POC ABG pO2 ABG pO2 ABG HCO3 ABG Base Excess ABG Hemoglobin VBG pH Oxyhemoglobin Sodium Potassium Chloride Carbon Dioxide BUN Creatinine Glucose POC Glucose 106 H 213 H 140 H Lactic Acid Calcium AST Alkaline Phosphatase CK-MB (CK-2) CK-MB (CK-2) Rel Index Albumin TSH Urine WBC (Auto) Salicylates 01/22/17 01/22/17 01/22/17 04:00 04:00 04:58 WBC RBC 3.26 L Hgb 8.3 L Hct 25.5 L MCV 78 L MCH 25 L RDW 17.9 H Plt Count Lymph % (Auto) [place] % (Auto) 7.9 H Eos % (Auto) 6.2 H Seg Neutrophils % Seg Neuts % (Manual) Lymphocytes % (Manual) Seg Neutrophils # Seg Neutrophils # Man Lymphocytes # (Manual) APTT POC ABG pH ABG pH POC ABG pCO2 POC ABG pO2 ABG pO2 ABG HCO3 ABG Base Excess ABG Hemoglobin VBG pH Oxyhemoglobin Sodium Potassium Chloride 95.5 L Carbon Dioxide 31 H D BUN Creatinine Glucose 134 H POC Glucose 146 H Lactic Acid Calcium AST 44 H Alkaline Phosphatase 379 H CK-MB (CK-2) CK-MB (CK-2) Rel Index Albumin 2.7 L TSH Urine WBC (Auto) Salicylates 01/22/17 01/22/17 01/22/17 12:12 18:12 23:39 WBC RBC Hgb Hct MCV MCH RDW Plt Count Lymph % (Auto) [place] % (Auto) Eos % (Auto) Seg Neutrophils % Seg Neuts % (Manual) Lymphocytes % (Manual) Seg Neutrophils # Seg Neutrophils # Man Lymphocytes # (Manual) APTT POC ABG pH ABG pH POC ABG pCO2 POC ABG pO2 ABG pO2 ABG HCO3 ABG Base Excess ABG Hemoglobin VBG pH Oxyhemoglobin Sodium Potassium Chloride Carbon Dioxide BUN Creatinine Glucose POC Glucose 255 H 182 H 134 H Lactic Acid Calcium AST Alkaline Phosphatase CK-MB (CK-2) CK-MB (CK-2) Rel Index Albumin TSH Urine WBC (Auto) Salicylates 01/23/17 01/23/17 01/23/17 04:43 12:12 17:36 WBC RBC Hgb Hct MCV MCH RDW Plt Count Lymph % (Auto) [place] % (Auto) Eos % (Auto) Seg Neutrophils % Seg Neuts % (Manual) Lymphocytes % (Manual) Seg Neutrophils # Seg Neutrophils # Man Lymphocytes # (Manual) APTT POC ABG pH ABG pH POC ABG pCO2 POC ABG pO2 ABG pO2 ABG HCO3 ABG Base Excess ABG Hemoglobin VBG pH Oxyhemoglobin Sodium Potassium Chloride Carbon Dioxide BUN Creatinine Glucose POC Glucose 218 H 128 H 156 H Lactic Acid Calcium AST Alkaline Phosphatase CK-MB (CK-2) CK-MB (CK-2) Rel Index Albumin TSH Urine WBC (Auto) Salicylates 01/24/17 01/24/17 01/24/17 00:08 05:16 11:40 WBC RBC Hgb Hct MCV MCH RDW Plt Count Lymph % (Auto) [place] % (Auto) Eos % (Auto) Seg Neutrophils % Seg Neuts % (Manual) Lymphocytes % (Manual) Seg Neutrophils # Seg Neutrophils # Man Lymphocytes # (Manual) APTT POC ABG pH ABG pH POC ABG pCO2 POC ABG pO2 ABG pO2 ABG HCO3 ABG Base Excess ABG Hemoglobin VBG pH Oxyhemoglobin Sodium Potassium Chloride Carbon Dioxide BUN Creatinine Glucose POC Glucose 129 H 169 H 187 H Lactic Acid Calcium AST Alkaline Phosphatase CK-MB (CK-2) CK-MB (CK-2) Rel Index Albumin TSH Urine WBC (Auto) Salicylates 01/24/17 01/24/17 01/25/17 17:43 23:23 04:56 WBC RBC Hgb Hct MCV MCH RDW Plt Count Lymph % (Auto) [place] % (Auto) Eos % (Auto) Seg Neutrophils % Seg Neuts % (Manual) Lymphocytes % (Manual) Seg Neutrophils # Seg Neutrophils # Man Lymphocytes # (Manual) APTT POC ABG pH ABG pH POC ABG pCO2 POC ABG pO2 ABG pO2 ABG HCO3 ABG Base Excess ABG Hemoglobin VBG pH Oxyhemoglobin Sodium Potassium Chloride Carbon Dioxide BUN Creatinine Glucose POC Glucose 215 H 222 H 210 H Lactic Acid Calcium AST Alkaline Phosphatase CK-MB (CK-2) CK-MB (CK-2) Rel Index Albumin TSH Urine WBC (Auto) Salicylates 01/25/17 01/25/17 01/26/17 11:52 17:37 00:02 WBC RBC Hgb Hct MCV MCH RDW Plt Count Lymph % (Auto) [place] % (Auto) Eos % (Auto) Seg Neutrophils % Seg Neuts % (Manual) Lymphocytes % (Manual) Seg Neutrophils # Seg Neutrophils # Man Lymphocytes # (Manual) APTT POC ABG pH ABG pH POC ABG pCO2 POC ABG pO2 ABG pO2 ABG HCO3 ABG Base Excess ABG Hemoglobin VBG pH Oxyhemoglobin Sodium Potassium Chloride Carbon Dioxide BUN Creatinine Glucose POC Glucose 284 H 218 H 192 H Lactic Acid Calcium AST Alkaline Phosphatase CK-MB (CK-2) CK-MB (CK-2) Rel Index Albumin TSH Urine WBC (Auto) Salicylates 01/26/17 01/26/17 01/26/17 05:33 12:17 17:50 WBC RBC Hgb Hct MCV MCH RDW Plt Count Lymph % (Auto) [place] % (Auto) Eos % (Auto) Seg Neutrophils % Seg Neuts % (Manual) Lymphocytes % (Manual) Seg Neutrophils # Seg Neutrophils # Man Lymphocytes # (Manual) APTT POC ABG pH ABG pH POC ABG pCO2 POC ABG pO2 ABG pO2 ABG HCO3 ABG Base Excess ABG Hemoglobin VBG pH Oxyhemoglobin Sodium Potassium Chloride Carbon Dioxide BUN Creatinine Glucose POC Glucose 199 H 227 H 229 H Lactic Acid Calcium AST Alkaline Phosphatase CK-MB (CK-2) CK-MB (CK-2) Rel Index Albumin TSH Urine WBC (Auto) Salicylates 01/26/17 01/27/17 01/27/17 23:57 05:31 11:42 WBC RBC Hgb Hct MCV MCH RDW Plt Count Lymph % (Auto) [place] % (Auto) Eos % (Auto) Seg Neutrophils % Seg Neuts % (Manual) Lymphocytes % (Manual) Seg Neutrophils # Seg Neutrophils # Man Lymphocytes # (Manual) APTT POC ABG pH ABG pH POC ABG pCO2 POC ABG pO2 ABG pO2 ABG HCO3 ABG Base Excess ABG Hemoglobin VBG pH Oxyhemoglobin Sodium Potassium Chloride Carbon Dioxide BUN Creatinine Glucose POC Glucose 186 H 285 H 260 H Lactic Acid Calcium AST Alkaline Phosphatase CK-MB (CK-2) CK-MB (CK-2) Rel Index Albumin TSH Urine WBC (Auto) Salicylates 01/27/17 01/27/17 01/27/17 17:47 23:58 Unknown WBC 12.1 H RBC 3.28 L Hgb 8.5 L Hct 25.5 L MCV 78 L MCH 26 L RDW 16.8 H Plt Count 601 H Lymph % (Auto) [place] % (Auto) Eos % (Auto) Seg Neutrophils % Seg Neuts % (Manual) Lymphocytes % (Manual) Seg Neutrophils # Seg Neutrophils # Man Lymphocytes # (Manual) APTT POC ABG pH ABG pH POC ABG pCO2 POC ABG pO2 ABG pO2 ABG HCO3 ABG Base Excess ABG Hemoglobin VBG pH Oxyhemoglobin Sodium Potassium Chloride Carbon Dioxide BUN Creatinine Glucose POC Glucose 329 H 225 H Lactic Acid Calcium AST Alkaline Phosphatase CK-MB (CK-2) CK-MB (CK-2) Rel Index Albumin TSH Urine WBC (Auto) Salicylates 01/27/17 01/28/17 01/28/17 Unknown 03:44 03:44 WBC RBC 3.14 L Hgb 8.2 L Hct 24.1 L MCV 77 L MCH 26 L RDW 16.9 H Plt Count 567 H Lymph % (Auto) [place] % (Auto) Eos % (Auto) Seg Neutrophils % Seg Neuts % (Manual) Lymphocytes % (Manual) Seg Neutrophils # Seg Neutrophils # Man Lymphocytes # (Manual) APTT POC ABG pH ABG pH POC ABG pCO2 POC ABG pO2 ABG pO2 ABG HCO3 ABG Base Excess ABG Hemoglobin VBG pH Oxyhemoglobin Sodium 128 L Potassium 5.4 H Chloride 87.5 L Carbon Dioxide BUN 44 H 42 H Creatinine Glucose 250 H 128 H POC Glucose Lactic Acid Calcium AST Alkaline Phosphatase CK-MB (CK-2) CK-MB (CK-2) Rel Index Albumin TSH Urine WBC (Auto) Salicylates 01/28/17 01/28/17 01/28/17 11:43 16:47 17:52 WBC RBC Hgb Hct MCV MCH RDW Plt Count Lymph % (Auto) [place] % (Auto) Eos % (Auto) Seg Neutrophils % Seg Neuts % (Manual) Lymphocytes % (Manual) Seg Neutrophils # Seg Neutrophils # Man Lymphocytes # (Manual) APTT POC ABG pH ABG pH POC ABG pCO2 POC ABG pO2 ABG pO2 ABG HCO3 ABG Base Excess ABG Hemoglobin VBG pH Oxyhemoglobin Sodium Potassium Chloride Carbon Dioxide BUN Creatinine Glucose POC Glucose 351 H 249 H Lactic Acid Calcium AST Alkaline Phosphatase CK-MB (CK-2) CK-MB (CK-2) Rel Index Albumin TSH Urine WBC (Auto) > 182.0 H Salicylates 01/29/17 01/29/17 01/29/17 05:25 05:25 09:32 WBC 13.6 H RBC 3.25 L Hgb 8.3 L Hct 25.1 L MCV 77 L MCH 26 L RDW 16.8 H Plt Count 514 H Lymph % (Auto) [place] % (Auto) Eos % (Auto) Seg Neutrophils % Seg Neuts % (Manual) Lymphocytes % (Manual) Seg Neutrophils # Seg Neutrophils # Man Lymphocytes # (Manual) APTT POC ABG pH ABG pH POC ABG pCO2 POC ABG pO2 ABG pO2 ABG HCO3 ABG Base Excess ABG Hemoglobin VBG pH Oxyhemoglobin Sodium Potassium Chloride 97.8 L Carbon Dioxide BUN 34 H Creatinine Glucose 222 H POC Glucose Lactic Acid 2.50 H* Calcium AST Alkaline Phosphatase CK-MB (CK-2) CK-MB (CK-2) Rel Index Albumin TSH Urine WBC (Auto) Salicylates 01/29/17 01/29/17 01/29/17 11:56 18:11 23:55 WBC RBC Hgb Hct MCV MCH RDW Plt Count Lymph % (Auto) [place] % (Auto) Eos % (Auto) Seg Neutrophils % Seg Neuts % (Manual) Lymphocytes % (Manual) Seg Neutrophils # Seg Neutrophils # Man Lymphocytes # (Manual) APTT POC ABG pH ABG pH POC ABG pCO2 POC ABG pO2 ABG pO2 ABG HCO3 ABG Base Excess ABG Hemoglobin VBG pH Oxyhemoglobin Sodium Potassium Chloride Carbon Dioxide BUN Creatinine Glucose POC Glucose 261 H 215 H 176 H Lactic Acid Calcium AST Alkaline Phosphatase CK-MB (CK-2) CK-MB (CK-2) Rel Index Albumin TSH Urine WBC (Auto) Salicylates 01/30/17 01/30/17 01/30/17 05:31 05:31 05:34 WBC 15.2 H RBC 3.09 L Hgb 7.9 L Hct 23.9 L MCV 77 L MCH 26 L RDW 16.9 H Plt Count 569 H Lymph % (Auto) [place] % (Auto) Eos % (Auto) Seg Neutrophils % Seg Neuts % (Manual) Lymphocytes % (Manual) Seg Neutrophils # Seg Neutrophils # Man Lymphocytes # (Manual) APTT POC ABG pH ABG pH POC ABG pCO2 POC ABG pO2 ABG pO2 ABG HCO3 ABG Base Excess ABG Hemoglobin VBG pH Oxyhemoglobin Sodium Potassium Chloride Carbon Dioxide BUN 24 H Creatinine Glucose 235 H POC Glucose 243 H Lactic Acid Calcium AST Alkaline Phosphatase CK-MB (CK-2) CK-MB (CK-2) Rel Index Albumin TSH Urine WBC (Auto) Salicylates 01/30/17 01/30/17 01/30/17 11:38 17:58 23:29 WBC RBC Hgb Hct MCV MCH RDW Plt Count Lymph % (Auto) [place] % (Auto) Eos % (Auto) Seg Neutrophils % Seg Neuts % (Manual) Lymphocytes % (Manual) Seg Neutrophils # Seg Neutrophils # Man Lymphocytes # (Manual) APTT POC ABG pH ABG pH POC ABG pCO2 POC ABG pO2 ABG pO2 ABG HCO3 ABG Base Excess ABG Hemoglobin VBG pH Oxyhemoglobin Sodium Potassium Chloride Carbon Dioxide BUN Creatinine Glucose POC Glucose 298 H 208 H 245 H Lactic Acid Calcium AST Alkaline Phosphatase CK-MB (CK-2) CK-MB (CK-2) Rel Index Albumin TSH Urine WBC (Auto) Salicylates 01/31/17 01/31/17 01/31/17 04:39 04:39 05:57 WBC 11.4 H RBC 3.22 L Hgb 8.2 L Hct 24.9 L MCV 78 L MCH 25 L RDW 17.2 H Plt Count 576 H Lymph % (Auto) [place] % (Auto) Eos % (Auto) Seg Neutrophils % Seg Neuts % (Manual) Lymphocytes % (Manual) Seg Neutrophils # Seg Neutrophils # Man Lymphocytes # (Manual) APTT POC ABG pH ABG pH POC ABG pCO2 POC ABG pO2 ABG pO2 ABG HCO3 ABG Base Excess ABG Hemoglobin VBG pH Oxyhemoglobin Sodium Potassium Chloride Carbon Dioxide BUN Creatinine 0.7 L Glucose 223 H POC Glucose 264 H Lactic Acid Calcium AST Alkaline Phosphatase CK-MB (CK-2) CK-MB (CK-2) Rel Index Albumin TSH Urine WBC (Auto) Salicylates 01/31/17 01/31/17 01/31/17 12:23 17:41 18:55 WBC RBC Hgb Hct MCV MCH RDW Plt Count Lymph % (Auto) [place] % (Auto) Eos % (Auto) Seg Neutrophils % Seg Neuts % (Manual) Lymphocytes % (Manual) Seg Neutrophils # Seg Neutrophils # Man Lymphocytes # (Manual) APTT POC ABG pH ABG pH POC ABG pCO2 32.8 L POC ABG pO2 ABG pO2 ABG HCO3 ABG Base Excess ABG Hemoglobin VBG pH Oxyhemoglobin Sodium Potassium Chloride Carbon Dioxide BUN Creatinine Glucose POC Glucose 252 H 208 H Lactic Acid Calcium AST Alkaline Phosphatase CK-MB (CK-2) CK-MB (CK-2) Rel Index Albumin TSH Urine WBC (Auto) Salicylates 01/31/17 02/01/17 02/01/17 22:59 03:38 03:38 WBC RBC 2.81 L Hgb 7.4 L Hct 22.1 L MCV 79 L MCH 27 L RDW 17.0 H Plt Count 540 H Lymph % (Auto) [place] % (Auto) Eos % (Auto) Seg Neutrophils % Seg Neuts % (Manual) Lymphocytes % (Manual) Seg Neutrophils # Seg Neutrophils # Man Lymphocytes # (Manual) APTT POC ABG pH ABG pH POC ABG pCO2 POC ABG pO2 ABG pO2 ABG HCO3 ABG Base Excess ABG Hemoglobin VBG pH Oxyhemoglobin Sodium Potassium Chloride Carbon Dioxide 21 L BUN Creatinine 0.7 L Glucose POC Glucose 40 L Lactic Acid Calcium AST Alkaline Phosphatase CK-MB (CK-2) CK-MB (CK-2) Rel Index Albumin TSH Urine WBC (Auto) Salicylates 02/01/17 02/01/17 02/01/17 05:17 12:19 16:44 WBC RBC Hgb Hct MCV MCH RDW Plt Count Lymph % (Auto) [place] % (Auto) Eos % (Auto) Seg Neutrophils % Seg Neuts % (Manual) Lymphocytes % (Manual) Seg Neutrophils # Seg Neutrophils # Man Lymphocytes # (Manual) APTT POC ABG pH ABG pH POC ABG pCO2 POC ABG pO2 ABG pO2 ABG HCO3 ABG Base Excess ABG Hemoglobin VBG pH Oxyhemoglobin Sodium Potassium Chloride Carbon Dioxide BUN Creatinine Glucose POC Glucose 140 H 213 H 172 H Lactic Acid Calcium AST Alkaline Phosphatase CK-MB (CK-2) CK-MB (CK-2) Rel Index Albumin TSH Urine WBC (Auto) Salicylates 02/01/17 02/02/17 02/02/17 23:59 05:14 11:24 WBC RBC Hgb Hct MCV MCH RDW Plt Count Lymph % (Auto) [place] % (Auto) Eos % (Auto) Seg Neutrophils % Seg Neuts % (Manual) Lymphocytes % (Manual) Seg Neutrophils # Seg Neutrophils # Man Lymphocytes # (Manual) APTT POC ABG pH ABG pH POC ABG pCO2 POC ABG pO2 ABG pO2 ABG HCO3 ABG Base Excess ABG Hemoglobin VBG pH Oxyhemoglobin Sodium Potassium Chloride Carbon Dioxide BUN Creatinine Glucose POC Glucose 181 H 194 H 209 H Lactic Acid Calcium AST Alkaline Phosphatase CK-MB (CK-2) CK-MB (CK-2) Rel Index Albumin TSH Urine WBC (Auto) Salicylates 02/02/17 02/02/17 02/02/17 11:46 11:46 17:47 WBC RBC 2.94 L Hgb 7.5 L Hct 23.0 L MCV 78 L MCH 25 L RDW 16.9 H Plt Count 520 H Lymph % (Auto) [place] % (Auto) Eos % (Auto) Seg Neutrophils % Seg Neuts % (Manual) Lymphocytes % (Manual) Seg Neutrophils # Seg Neutrophils # Man Lymphocytes # (Manual) APTT POC ABG pH ABG pH POC ABG pCO2 POC ABG pO2 ABG pO2 ABG HCO3 ABG Base Excess ABG Hemoglobin VBG pH Oxyhemoglobin Sodium Potassium Chloride Carbon Dioxide BUN Creatinine 0.6 L Glucose 189 H POC Glucose 147 H Lactic Acid Calcium 8.1 L AST Alkaline Phosphatase CK-MB (CK-2) CK-MB (CK-2) Rel Index Albumin TSH Urine WBC (Auto) Salicylates 02/02/17 02/03/17 02/03/17 23:32 05:53 11:19 WBC RBC Hgb Hct MCV MCH RDW Plt Count Lymph % (Auto) [place] % (Auto) Eos % (Auto) Seg Neutrophils % Seg Neuts % (Manual) Lymphocytes % (Manual) Seg Neutrophils # Seg Neutrophils # Man Lymphocytes # (Manual) APTT POC ABG pH ABG pH POC ABG pCO2 POC ABG pO2 ABG pO2 ABG HCO3 ABG Base Excess ABG Hemoglobin VBG pH Oxyhemoglobin Sodium Potassium Chloride Carbon Dioxide BUN Creatinine Glucose POC Glucose 176 H 224 H 228 H Lactic Acid Calcium AST Alkaline Phosphatase CK-MB (CK-2) CK-MB (CK-2) Rel Index Albumin TSH Urine WBC (Auto) Salicylates 02/03/17 02/03/17 02/04/17 16:59 23:38 05:45 WBC RBC Hgb Hct MCV MCH RDW Plt Count Lymph % (Auto) [place] % (Auto) Eos % (Auto) Seg Neutrophils % Seg Neuts % (Manual) Lymphocytes % (Manual) Seg Neutrophils # Seg Neutrophils # Man Lymphocytes # (Manual) APTT POC ABG pH ABG pH POC ABG pCO2 POC ABG pO2 ABG pO2 ABG HCO3 ABG Base Excess ABG Hemoglobin VBG pH Oxyhemoglobin Sodium Potassium Chloride Carbon Dioxide BUN Creatinine Glucose POC Glucose 189 H 191 H 251 H Lactic Acid Calcium AST Alkaline Phosphatase CK-MB (CK-2) CK-MB (CK-2) Rel Index Albumin TSH Urine WBC (Auto) Salicylates 02/04/17 02/04/17 02/05/17 11:20 17:20 00:17 WBC RBC Hgb Hct MCV MCH RDW Plt Count Lymph % (Auto) [place] % (Auto) Eos % (Auto) Seg Neutrophils % Seg Neuts % (Manual) Lymphocytes % (Manual) Seg Neutrophils # Seg Neutrophils # Man Lymphocytes # (Manual) APTT POC ABG pH ABG pH POC ABG pCO2 POC ABG pO2 ABG pO2 ABG HCO3 ABG Base Excess ABG Hemoglobin VBG pH Oxyhemoglobin Sodium Potassium Chloride Carbon Dioxide BUN Creatinine Glucose POC Glucose 243 H 163 H 200 H Lactic Acid Calcium AST Alkaline Phosphatase CK-MB (CK-2) CK-MB (CK-2) Rel Index Albumin TSH Urine WBC (Auto) Salicylates 02/05/17 02/05/17 02/05/17 05:38 12:38 16:29 WBC RBC Hgb Hct MCV MCH RDW Plt Count Lymph % (Auto) [place] % (Auto) Eos % (Auto) Seg Neutrophils % Seg Neuts % (Manual) Lymphocytes % (Manual) Seg Neutrophils # Seg Neutrophils # Man Lymphocytes # (Manual) APTT POC ABG pH ABG pH POC ABG pCO2 POC ABG pO2 ABG pO2 ABG HCO3 ABG Base Excess ABG Hemoglobin VBG pH Oxyhemoglobin Sodium Potassium Chloride Carbon Dioxide BUN Creatinine Glucose POC Glucose 248 H 241 H 257 H Lactic Acid Calcium AST Alkaline Phosphatase CK-MB (CK-2) CK-MB (CK-2) Rel Index Albumin TSH Urine WBC (Auto) Salicylates 02/05/17 02/06/17 02/06/17 23:56 05:30 11:50 WBC RBC Hgb Hct MCV MCH RDW Plt Count Lymph % (Auto) [place] % (Auto) Eos % (Auto) Seg Neutrophils % Seg Neuts % (Manual) Lymphocytes % (Manual) Seg Neutrophils # Seg Neutrophils # Man Lymphocytes # (Manual) APTT POC ABG pH ABG pH POC ABG pCO2 POC ABG pO2 ABG pO2 ABG HCO3 ABG Base Excess ABG Hemoglobin VBG pH Oxyhemoglobin Sodium Potassium Chloride Carbon Dioxide BUN Creatinine Glucose POC Glucose 258 H 120 H 254 H Lactic Acid Calcium AST Alkaline Phosphatase CK-MB (CK-2) CK-MB (CK-2) Rel Index Albumin TSH Urine WBC (Auto) Salicylates 02/06/17 02/06/17 02/07/17 17:11 23:50 05:22 WBC RBC Hgb Hct MCV MCH RDW Plt Count Lymph % (Auto) [place] % (Auto) Eos % (Auto) Seg Neutrophils % Seg Neuts % (Manual) Lymphocytes % (Manual) Seg Neutrophils # Seg Neutrophils # Man Lymphocytes # (Manual) APTT POC ABG pH ABG pH POC ABG pCO2 POC ABG pO2 ABG pO2 ABG HCO3 ABG Base Excess ABG Hemoglobin VBG pH Oxyhemoglobin Sodium Potassium Chloride Carbon Dioxide BUN Creatinine Glucose POC Glucose 149 H 240 H 258 H Lactic Acid Calcium AST Alkaline Phosphatase CK-MB (CK-2) CK-MB (CK-2) Rel Index Albumin TSH Urine WBC (Auto) Salicylates 02/07/17 02/07/17 02/07/17 11:15 18:33 23:59 WBC RBC Hgb Hct MCV MCH RDW Plt Count Lymph % (Auto) [place] % (Auto) Eos % (Auto) Seg Neutrophils % Seg Neuts % (Manual) Lymphocytes % (Manual) Seg Neutrophils # Seg Neutrophils # Man Lymphocytes # (Manual) APTT POC ABG pH ABG pH POC ABG pCO2 POC ABG pO2 ABG pO2 ABG HCO3 ABG Base Excess ABG Hemoglobin VBG pH Oxyhemoglobin Sodium Potassium Chloride Carbon Dioxide BUN Creatinine Glucose POC Glucose 239 H 176 H 186 H Lactic Acid Calcium AST Alkaline Phosphatase CK-MB (CK-2) CK-MB (CK-2) Rel Index Albumin TSH Urine WBC (Auto) Salicylates 02/08/17 02/08/17 02/08/17 06:15 11:55 16:55 WBC RBC Hgb Hct MCV MCH RDW Plt Count Lymph % (Auto) [place] % (Auto) Eos % (Auto) Seg Neutrophils % Seg Neuts % (Manual) Lymphocytes % (Manual) Seg Neutrophils # Seg Neutrophils # Man Lymphocytes # (Manual) APTT POC ABG pH ABG pH POC ABG pCO2 POC ABG pO2 ABG pO2 ABG HCO3 ABG Base Excess ABG Hemoglobin VBG pH Oxyhemoglobin Sodium Potassium Chloride Carbon Dioxide BUN Creatinine Glucose POC Glucose 195 H 129 H 246 H Lactic Acid Calcium AST Alkaline Phosphatase CK-MB (CK-2) CK-MB (CK-2) Rel Index Albumin TSH Urine WBC (Auto) Salicylates 02/08/17 02/09/17 02/09/17 23:51 05:51 07:24 WBC 14.7 H RBC 3.39 L Hgb 8.9 L Hct 26.4 L MCV 78 L MCH 26 L RDW 18.4 H Plt Count 670 H Lymph % (Auto) 11.8 L [place] % (Auto) Eos % (Auto) Seg Neutrophils % 81.2 H Seg Neuts % (Manual) Lymphocytes % (Manual) Seg Neutrophils # 11.9 H Seg Neutrophils # Man Lymphocytes # (Manual) APTT POC ABG pH ABG pH POC ABG pCO2 POC ABG pO2 ABG pO2 ABG HCO3 ABG Base Excess ABG Hemoglobin VBG pH Oxyhemoglobin Sodium Potassium Chloride Carbon Dioxide BUN Creatinine Glucose POC Glucose 262 H 295 H Lactic Acid Calcium AST Alkaline Phosphatase CK-MB (CK-2) CK-MB (CK-2) Rel Index Albumin TSH Urine WBC (Auto) Salicylates 02/09/17 02/09/17 02/09/17 07:24 12:08 18:39 WBC RBC Hgb Hct MCV MCH RDW Plt Count Lymph % (Auto) [place] % (Auto) Eos % (Auto) Seg Neutrophils % Seg Neuts % (Manual) Lymphocytes % (Manual) Seg Neutrophils # Seg Neutrophils # Man Lymphocytes # (Manual) APTT POC ABG pH ABG pH POC ABG pCO2 POC ABG pO2 ABG pO2 ABG HCO3 ABG Base Excess ABG Hemoglobin VBG pH Oxyhemoglobin Sodium Potassium Chloride 95.5 L Carbon Dioxide BUN 52 H Creatinine Glucose 277 H POC Glucose 236 H 151 H Lactic Acid Calcium AST Alkaline Phosphatase CK-MB (CK-2) CK-MB (CK-2) Rel Index Albumin TSH Urine WBC (Auto) Salicylates 02/10/17 02/10/17 02/10/17 00:01 05:44 11:21 WBC RBC Hgb Hct MCV MCH RDW Plt Count Lymph % (Auto) [place] % (Auto) Eos % (Auto) Seg Neutrophils % Seg Neuts % (Manual) Lymphocytes % (Manual) Seg Neutrophils # Seg Neutrophils # Man Lymphocytes # (Manual) APTT POC ABG pH ABG pH POC ABG pCO2 POC ABG pO2 ABG pO2 ABG HCO3 ABG Base Excess ABG Hemoglobin VBG pH Oxyhemoglobin Sodium Potassium Chloride Carbon Dioxide BUN Creatinine Glucose POC Glucose 210 H 201 H 233 H Lactic Acid Calcium AST Alkaline Phosphatase CK-MB (CK-2) CK-MB (CK-2) Rel Index Albumin TSH Urine WBC (Auto) Salicylates 02/10/17 02/10/17 02/11/17 17:29 23:56 05:24 WBC RBC Hgb Hct MCV MCH RDW Plt Count Lymph % (Auto) [place] % (Auto) Eos % (Auto) Seg Neutrophils % Seg Neuts % (Manual) Lymphocytes % (Manual) Seg Neutrophils # Seg Neutrophils # Man Lymphocytes # (Manual) APTT POC ABG pH ABG pH POC ABG pCO2 POC ABG pO2 ABG pO2 ABG HCO3 ABG Base Excess ABG Hemoglobin VBG pH Oxyhemoglobin Sodium Potassium Chloride Carbon Dioxide BUN Creatinine Glucose POC Glucose 167 H 191 H 135 H Lactic Acid Calcium AST Alkaline Phosphatase CK-MB (CK-2) CK-MB (CK-2) Rel Index Albumin TSH Urine WBC (Auto) Salicylates 02/11/17 02/11/17 02/11/17 12:25 17:03 23:59 WBC RBC Hgb Hct MCV MCH RDW Plt Count Lymph % (Auto) [place] % (Auto) Eos % (Auto) Seg Neutrophils % Seg Neuts % (Manual) Lymphocytes % (Manual) Seg Neutrophils # Seg Neutrophils # Man Lymphocytes # (Manual) APTT POC ABG pH ABG pH POC ABG pCO2 POC ABG pO2 ABG pO2 ABG HCO3 ABG Base Excess ABG Hemoglobin VBG pH Oxyhemoglobin Sodium Potassium Chloride Carbon Dioxide BUN Creatinine Glucose POC Glucose 275 H 172 H 215 H Lactic Acid Calcium AST Alkaline Phosphatase CK-MB (CK-2) CK-MB (CK-2) Rel Index Albumin TSH Urine WBC (Auto) Salicylates 02/12/17 02/12/17 02/12/17 05:39 11:33 17:55 WBC RBC Hgb Hct MCV MCH RDW Plt Count Lymph % (Auto) [place] % (Auto) Eos % (Auto) Seg Neutrophils % Seg Neuts % (Manual) Lymphocytes % (Manual) Seg Neutrophils # Seg Neutrophils # Man Lymphocytes # (Manual) APTT POC ABG pH ABG pH POC ABG pCO2 POC ABG pO2 ABG pO2 ABG HCO3 ABG Base Excess ABG Hemoglobin VBG pH Oxyhemoglobin Sodium Potassium Chloride Carbon Dioxide BUN Creatinine Glucose POC Glucose 261 H 217 H 172 H Lactic Acid Calcium AST Alkaline Phosphatase CK-MB (CK-2) CK-MB (CK-2) Rel Index Albumin TSH Urine WBC (Auto) Salicylates 02/13/17 02/13/17 02/13/17 00:25 06:46 11:26 WBC RBC Hgb Hct MCV MCH RDW Plt Count Lymph % (Auto) [place] % (Auto) Eos % (Auto) Seg Neutrophils % Seg Neuts % (Manual) Lymphocytes % (Manual) Seg Neutrophils # Seg Neutrophils # Man Lymphocytes # (Manual) APTT POC ABG pH ABG pH POC ABG pCO2 POC ABG pO2 ABG pO2 ABG HCO3 ABG Base Excess ABG Hemoglobin VBG pH Oxyhemoglobin Sodium Potassium Chloride Carbon Dioxide BUN Creatinine Glucose POC Glucose 207 H 219 H 231 H Lactic Acid Calcium AST Alkaline Phosphatase CK-MB (CK-2) CK-MB (CK-2) Rel Index Albumin TSH Urine WBC (Auto) Salicylates 02/13/17 02/13/17 02/14/17 17:12 23:44 05:44 WBC RBC Hgb Hct MCV MCH RDW Plt Count Lymph % (Auto) [place] % (Auto) Eos % (Auto) Seg Neutrophils % Seg Neuts % (Manual) Lymphocytes % (Manual) Seg Neutrophils # Seg Neutrophils # Man Lymphocytes # (Manual) APTT POC ABG pH ABG pH POC ABG pCO2 POC ABG pO2 ABG pO2 ABG HCO3 ABG Base Excess ABG Hemoglobin VBG pH Oxyhemoglobin Sodium Potassium Chloride Carbon Dioxide BUN Creatinine Glucose POC Glucose 190 H 256 H 184 H Lactic Acid Calcium AST Alkaline Phosphatase CK-MB (CK-2) CK-MB (CK-2) Rel Index Albumin TSH Urine WBC (Auto) Salicylates 02/14/17 02/14/17 02/14/17 12:21 17:57 23:18 WBC RBC Hgb Hct MCV MCH RDW Plt Count Lymph % (Auto) [place] % (Auto) Eos % (Auto) Seg Neutrophils % Seg Neuts % (Manual) Lymphocytes % (Manual) Seg Neutrophils # Seg Neutrophils # Man Lymphocytes # (Manual) APTT POC ABG pH ABG pH POC ABG pCO2 POC ABG pO2 ABG pO2 ABG HCO3 ABG Base Excess ABG Hemoglobin VBG pH Oxyhemoglobin Sodium Potassium Chloride Carbon Dioxide BUN Creatinine Glucose POC Glucose 233 H 155 H 165 H Lactic Acid Calcium AST Alkaline Phosphatase CK-MB (CK-2) CK-MB (CK-2) Rel Index Albumin TSH Urine WBC (Auto) Salicylates 02/15/17 02/15/17 02/15/17 05:33 11:45 17:20 WBC RBC Hgb Hct MCV MCH RDW Plt Count Lymph % (Auto) [place] % (Auto) Eos % (Auto) Seg Neutrophils % Seg Neuts % (Manual) Lymphocytes % (Manual) Seg Neutrophils # Seg Neutrophils # Man Lymphocytes # (Manual) APTT POC ABG pH ABG pH POC ABG pCO2 POC ABG pO2 ABG pO2 ABG HCO3 ABG Base Excess ABG Hemoglobin VBG pH Oxyhemoglobin Sodium Potassium Chloride Carbon Dioxide BUN Creatinine Glucose POC Glucose 239 H 130 H 189 H Lactic Acid Calcium AST Alkaline Phosphatase CK-MB (CK-2) CK-MB (CK-2) Rel Index Albumin TSH Urine WBC (Auto) Salicylates 02/16/17 02/16/17 02/16/17 00:14 05:09 12:31 WBC RBC Hgb Hct MCV MCH RDW Plt Count Lymph % (Auto) [place] % (Auto) Eos % (Auto) Seg Neutrophils % Seg Neuts % (Manual) Lymphocytes % (Manual) Seg Neutrophils # Seg Neutrophils # Man Lymphocytes # (Manual) APTT POC ABG pH ABG pH POC ABG pCO2 POC ABG pO2 ABG pO2 ABG HCO3 ABG Base Excess ABG Hemoglobin VBG pH Oxyhemoglobin Sodium Potassium Chloride Carbon Dioxide BUN Creatinine Glucose POC Glucose 197 H 226 H 178 H Lactic Acid Calcium AST Alkaline Phosphatase CK-MB (CK-2) CK-MB (CK-2) Rel Index Albumin TSH Urine WBC (Auto) Salicylates 02/16/17 02/16/17 02/17/17 16:35 23:49 05:37 WBC RBC Hgb Hct MCV MCH RDW Plt Count Lymph % (Auto) [place] % (Auto) Eos % (Auto) Seg Neutrophils % Seg Neuts % (Manual) Lymphocytes % (Manual) Seg Neutrophils # Seg Neutrophils # Man Lymphocytes # (Manual) APTT POC ABG pH ABG pH POC ABG pCO2 POC ABG pO2 ABG pO2 ABG HCO3 ABG Base Excess ABG Hemoglobin VBG pH Oxyhemoglobin Sodium Potassium Chloride Carbon Dioxide BUN Creatinine Glucose POC Glucose 174 H 62 L 153 H Lactic Acid Calcium AST Alkaline Phosphatase CK-MB (CK-2) CK-MB (CK-2) Rel Index Albumin TSH Urine WBC (Auto) Salicylates 02/17/17 02/17/17 02/17/17 11:39 17:02 22:24 WBC RBC Hgb Hct MCV MCH RDW Plt Count Lymph % (Auto) [place] % (Auto) Eos % (Auto) Seg Neutrophils % Seg Neuts % (Manual) Lymphocytes % (Manual) Seg Neutrophils # Seg Neutrophils # Man Lymphocytes # (Manual) APTT POC ABG pH ABG pH POC ABG pCO2 POC ABG pO2 ABG pO2 ABG HCO3 ABG Base Excess ABG Hemoglobin VBG pH Oxyhemoglobin Sodium Potassium Chloride Carbon Dioxide BUN Creatinine Glucose POC Glucose 231 H 112 H 116 H Lactic Acid Calcium AST Alkaline Phosphatase CK-MB (CK-2) CK-MB (CK-2) Rel Index Albumin TSH Urine WBC (Auto) Salicylates 02/18/17 02/19/17 02/19/17 15:34 05:09 07:57 WBC RBC Hgb Hct MCV MCH RDW Plt Count Lymph % (Auto) [place] % (Auto) Eos % (Auto) Seg Neutrophils % Seg Neuts % (Manual) Lymphocytes % (Manual) Seg Neutrophils # Seg Neutrophils # Man Lymphocytes # (Manual) APTT POC ABG pH ABG pH POC ABG pCO2 POC ABG pO2 ABG pO2 ABG HCO3 ABG Base Excess ABG Hemoglobin VBG pH Oxyhemoglobin Sodium Potassium Chloride Carbon Dioxide BUN Creatinine Glucose POC Glucose 215 H 218 H 283 H Lactic Acid Calcium AST Alkaline Phosphatase CK-MB (CK-2) CK-MB (CK-2) Rel Index Albumin TSH Urine WBC (Auto) Salicylates 02/19/17 02/19/17 02/20/17 14:49 22:10 05:10 WBC RBC Hgb Hct MCV MCH RDW Plt Count Lymph % (Auto) [place] % (Auto) Eos % (Auto) Seg Neutrophils % Seg Neuts % (Manual) Lymphocytes % (Manual) Seg Neutrophils # Seg Neutrophils # Man Lymphocytes # (Manual) APTT POC ABG pH ABG pH POC ABG pCO2 POC ABG pO2 ABG pO2 ABG HCO3 ABG Base Excess ABG Hemoglobin VBG pH Oxyhemoglobin Sodium Potassium Chloride Carbon Dioxide BUN Creatinine Glucose POC Glucose 290 H 169 H 209 H Lactic Acid Calcium AST Alkaline Phosphatase CK-MB (CK-2) CK-MB (CK-2) Rel Index Albumin TSH Urine WBC (Auto) Salicylates 02/20/17 02/20/17 02/21/17 15:05 21:52 02:00 WBC RBC Hgb Hct MCV MCH RDW Plt Count Lymph % (Auto) [place] % (Auto) Eos % (Auto) Seg Neutrophils % Seg Neuts % (Manual) Lymphocytes % (Manual) Seg Neutrophils # Seg Neutrophils # Man Lymphocytes # (Manual) APTT POC ABG pH ABG pH POC ABG pCO2 POC ABG pO2 ABG pO2 ABG HCO3 ABG Base Excess ABG Hemoglobin VBG pH Oxyhemoglobin Sodium Potassium Chloride Carbon Dioxide BUN Creatinine Glucose POC Glucose 172 H 209 H 216 H Lactic Acid Calcium AST Alkaline Phosphatase CK-MB (CK-2) CK-MB (CK-2) Rel Index Albumin TSH Urine WBC (Auto) Salicylates 02/21/17 02/21/17 02/21/17 04:54 14:43 17:47 WBC RBC Hgb Hct MCV MCH RDW Plt Count Lymph % (Auto) [place] % (Auto) Eos % (Auto) Seg Neutrophils % Seg Neuts % (Manual) Lymphocytes % (Manual) Seg Neutrophils # Seg Neutrophils # Man Lymphocytes # (Manual) APTT POC ABG pH ABG pH POC ABG pCO2 POC ABG pO2 ABG pO2 ABG HCO3 ABG Base Excess ABG Hemoglobin VBG pH Oxyhemoglobin Sodium Potassium Chloride Carbon Dioxide BUN Creatinine Glucose POC Glucose 227 H 290 H 220 H Lactic Acid Calcium AST Alkaline Phosphatase CK-MB (CK-2) CK-MB (CK-2) Rel Index Albumin TSH Urine WBC (Auto) Salicylates 02/21/17 02/22/17 02/22/17 22:02 04:52 15:25 WBC RBC Hgb Hct MCV MCH RDW Plt Count Lymph % (Auto) [place] % (Auto) Eos % (Auto) Seg Neutrophils % Seg Neuts % (Manual) Lymphocytes % (Manual) Seg Neutrophils # Seg Neutrophils # Man Lymphocytes # (Manual) APTT POC ABG pH ABG pH POC ABG pCO2 POC ABG pO2 ABG pO2 ABG HCO3 ABG Base Excess ABG Hemoglobin VBG pH Oxyhemoglobin Sodium Potassium Chloride Carbon Dioxide BUN Creatinine Glucose POC Glucose 246 H 212 H 236 H Lactic Acid Calcium AST Alkaline Phosphatase CK-MB (CK-2) CK-MB (CK-2) Rel Index Albumin TSH Urine WBC (Auto) Salicylates 02/22/17 02/23/17 02/23/17 21:33 06:04 10:00 WBC RBC Hgb Hct MCV MCH RDW Plt Count Lymph % (Auto) [place] % (Auto) Eos % (Auto) Seg Neutrophils % Seg Neuts % (Manual) Lymphocytes % (Manual) Seg Neutrophils # Seg Neutrophils # Man Lymphocytes # (Manual) APTT POC ABG pH ABG pH POC ABG pCO2 POC ABG pO2 ABG pO2 ABG HCO3 ABG Base Excess ABG Hemoglobin VBG pH Oxyhemoglobin Sodium Potassium Chloride Carbon Dioxide BUN Creatinine Glucose POC Glucose 255 H 208 H 174 H Lactic Acid Calcium AST Alkaline Phosphatase CK-MB (CK-2) CK-MB (CK-2) Rel Index Albumin TSH Urine WBC (Auto) Salicylates 02/23/17 02/23/17 02/23/17 12:52 17:15 21:51 WBC RBC Hgb Hct MCV MCH RDW Plt Count Lymph % (Auto) [place] % (Auto) Eos % (Auto) Seg Neutrophils % Seg Neuts % (Manual) Lymphocytes % (Manual) Seg Neutrophils # Seg Neutrophils # Man Lymphocytes # (Manual) APTT POC ABG pH ABG pH POC ABG pCO2 POC ABG pO2 ABG pO2 ABG HCO3 ABG Base Excess ABG Hemoglobin VBG pH Oxyhemoglobin Sodium Potassium Chloride Carbon Dioxide BUN Creatinine Glucose POC Glucose 203 H 269 H 205 H Lactic Acid Calcium AST Alkaline Phosphatase CK-MB (CK-2) CK-MB (CK-2) Rel Index Albumin TSH Urine WBC (Auto) Salicylates 02/24/17 02/24/17 02/24/17 10:23 17:45 21:24 WBC RBC Hgb Hct MCV MCH RDW Plt Count Lymph % (Auto) [place] % (Auto) Eos % (Auto) Seg Neutrophils % Seg Neuts % (Manual) Lymphocytes % (Manual) Seg Neutrophils # Seg Neutrophils # Man Lymphocytes # (Manual) APTT POC ABG pH ABG pH POC ABG pCO2 POC ABG pO2 ABG pO2 ABG HCO3 ABG Base Excess ABG Hemoglobin VBG pH Oxyhemoglobin Sodium Potassium Chloride Carbon Dioxide BUN Creatinine Glucose POC Glucose 280 H 239 H 254 H Lactic Acid Calcium AST Alkaline Phosphatase CK-MB (CK-2) CK-MB (CK-2) Rel Index Albumin TSH Urine WBC (Auto) Salicylates 02/25/17 02/25/17 02/25/17 02:12 05:17 14:32 WBC RBC Hgb Hct MCV MCH RDW Plt Count Lymph % (Auto) [place] % (Auto) Eos % (Auto) Seg Neutrophils % Seg Neuts % (Manual) Lymphocytes % (Manual) Seg Neutrophils # Seg Neutrophils # Man Lymphocytes # (Manual) APTT POC ABG pH ABG pH POC ABG pCO2 POC ABG pO2 ABG pO2 ABG HCO3 ABG Base Excess ABG Hemoglobin VBG pH Oxyhemoglobin Sodium Potassium Chloride Carbon Dioxide BUN Creatinine Glucose POC Glucose 296 H 332 H 353 H Lactic Acid Calcium AST Alkaline Phosphatase CK-MB (CK-2) CK-MB (CK-2) Rel Index Albumin TSH Urine WBC (Auto) Salicylates 02/25/17 02/26/17 02/26/17 22:14 00:37 05:52 WBC RBC Hgb Hct MCV MCH RDW Plt Count Lymph % (Auto) [place] % (Auto) Eos % (Auto) Seg Neutrophils % Seg Neuts % (Manual) Lymphocytes % (Manual) Seg Neutrophils # Seg Neutrophils # Man Lymphocytes # (Manual) APTT POC ABG pH ABG pH POC ABG pCO2 POC ABG pO2 ABG pO2 ABG HCO3 ABG Base Excess ABG Hemoglobin VBG pH Oxyhemoglobin Sodium Potassium Chloride Carbon Dioxide BUN Creatinine Glucose POC Glucose 201 H 233 H 269 H Lactic Acid Calcium AST Alkaline Phosphatase CK-MB (CK-2) CK-MB (CK-2) Rel Index Albumin TSH Urine WBC (Auto) Salicylates 02/26/17 02/26/17 02/26/17 11:48 13:49 21:26 WBC RBC Hgb Hct MCV MCH RDW Plt Count Lymph % (Auto) [place] % (Auto) Eos % (Auto) Seg Neutrophils % Seg Neuts % (Manual) Lymphocytes % (Manual) Seg Neutrophils # Seg Neutrophils # Man Lymphocytes # (Manual) APTT POC ABG pH ABG pH POC ABG pCO2 POC ABG pO2 ABG pO2 ABG HCO3 ABG Base Excess ABG Hemoglobin VBG pH Oxyhemoglobin Sodium Potassium Chloride Carbon Dioxide BUN Creatinine Glucose POC Glucose 333 H 322 H 244 H Lactic Acid Calcium AST Alkaline Phosphatase CK-MB (CK-2) CK-MB (CK-2) Rel Index Albumin TSH Urine WBC (Auto) Salicylates 02/27/17 02/27/17 02/27/17 05:27 13:51 21:48 WBC RBC Hgb Hct MCV MCH RDW Plt Count Lymph % (Auto) [place] % (Auto) Eos % (Auto) Seg Neutrophils % Seg Neuts % (Manual) Lymphocytes % (Manual) Seg Neutrophils # Seg Neutrophils # Man Lymphocytes # (Manual) APTT POC ABG pH ABG pH POC ABG pCO2 POC ABG pO2 ABG pO2 ABG HCO3 ABG Base Excess ABG Hemoglobin VBG pH Oxyhemoglobin Sodium Potassium Chloride Carbon Dioxide BUN Creatinine Glucose POC Glucose 217 H 239 H 254 H Lactic Acid Calcium AST Alkaline Phosphatase CK-MB (CK-2) CK-MB (CK-2) Rel Index Albumin TSH Urine WBC (Auto) Salicylates 02/28/17 02/28/17 02/28/17 05:38 11:00 19:44 WBC RBC Hgb Hct MCV MCH RDW Plt Count Lymph % (Auto) [place] % (Auto) Eos % (Auto) Seg Neutrophils % Seg Neuts % (Manual) Lymphocytes % (Manual) Seg Neutrophils # Seg Neutrophils # Man Lymphocytes # (Manual) APTT POC ABG pH ABG pH POC ABG pCO2 POC ABG pO2 ABG pO2 ABG HCO3 ABG Base Excess ABG Hemoglobin VBG pH Oxyhemoglobin Sodium Potassium Chloride Carbon Dioxide BUN Creatinine Glucose POC Glucose 325 H 203 H 116 H Lactic Acid Calcium AST Alkaline Phosphatase CK-MB (CK-2) CK-MB (CK-2) Rel Index Albumin TSH Urine WBC (Auto) Salicylates 03/01/17 03/01/17 03/01/17 00:08 05:31 12:17 WBC RBC Hgb Hct MCV MCH RDW Plt Count Lymph % (Auto) [place] % (Auto) Eos % (Auto) Seg Neutrophils % Seg Neuts % (Manual) Lymphocytes % (Manual) Seg Neutrophils # Seg Neutrophils # Man Lymphocytes # (Manual) APTT POC ABG pH ABG pH POC ABG pCO2 POC ABG pO2 ABG pO2 ABG HCO3 ABG Base Excess ABG Hemoglobin VBG pH Oxyhemoglobin Sodium Potassium Chloride Carbon Dioxide BUN Creatinine Glucose POC Glucose 202 H 183 H 184 H Lactic Acid Calcium AST Alkaline Phosphatase CK-MB (CK-2) CK-MB (CK-2) Rel Index Albumin TSH Urine WBC (Auto) Salicylates 03/02/17 03/02/17 03/02/17 00:12 05:58 18:22 WBC RBC Hgb Hct MCV MCH RDW Plt Count Lymph % (Auto) [place] % (Auto) Eos % (Auto) Seg Neutrophils % Seg Neuts % (Manual) Lymphocytes % (Manual) Seg Neutrophils # Seg Neutrophils # Man Lymphocytes # (Manual) APTT POC ABG pH ABG pH POC ABG pCO2 POC ABG pO2 ABG pO2 ABG HCO3 ABG Base Excess ABG Hemoglobin VBG pH Oxyhemoglobin Sodium Potassium Chloride Carbon Dioxide BUN Creatinine Glucose POC Glucose 117 H 176 H 156 H Lactic Acid Calcium AST Alkaline Phosphatase CK-MB (CK-2) CK-MB (CK-2) Rel Index Albumin TSH Urine WBC (Auto) Salicylates 03/02/17 03/03/17 03/03/17 23:51 05:44 11:32 WBC RBC Hgb Hct MCV MCH RDW Plt Count Lymph % (Auto) [place] % (Auto) Eos % (Auto) Seg Neutrophils % Seg Neuts % (Manual) Lymphocytes % (Manual) Seg Neutrophils # Seg Neutrophils # Man Lymphocytes # (Manual) APTT POC ABG pH ABG pH POC ABG pCO2 POC ABG pO2 ABG pO2 ABG HCO3 ABG Base Excess ABG Hemoglobin VBG pH Oxyhemoglobin Sodium Potassium Chloride Carbon Dioxide BUN Creatinine Glucose POC Glucose 211 H 117 H 133 H Lactic Acid Calcium AST Alkaline Phosphatase CK-MB (CK-2) CK-MB (CK-2) Rel Index Albumin TSH Urine WBC (Auto) Salicylates 03/03/17 03/03/17 03/04/17 17:43 23:17 05:30 WBC RBC Hgb Hct MCV MCH RDW Plt Count Lymph % (Auto) [place] % (Auto) Eos % (Auto) Seg Neutrophils % Seg Neuts % (Manual) Lymphocytes % (Manual) Seg Neutrophils # Seg Neutrophils # Man Lymphocytes # (Manual) APTT POC ABG pH ABG pH POC ABG pCO2 POC ABG pO2 ABG pO2 ABG HCO3 ABG Base Excess ABG Hemoglobin VBG pH Oxyhemoglobin Sodium Potassium Chloride Carbon Dioxide BUN Creatinine Glucose POC Glucose 206 H 170 H 126 H Lactic Acid Calcium AST Alkaline Phosphatase CK-MB (CK-2) CK-MB (CK-2) Rel Index Albumin TSH Urine WBC (Auto) Salicylates 03/04/17 03/04/17 03/05/17 12:17 17:27 05:20 WBC RBC Hgb Hct MCV MCH RDW Plt Count Lymph % (Auto) [place] % (Auto) Eos % (Auto) Seg Neutrophils % Seg Neuts % (Manual) Lymphocytes % (Manual) Seg Neutrophils # Seg Neutrophils # Man Lymphocytes # (Manual) APTT POC ABG pH ABG pH POC ABG pCO2 POC ABG pO2 ABG pO2 ABG HCO3 ABG Base Excess ABG Hemoglobin VBG pH Oxyhemoglobin Sodium Potassium Chloride Carbon Dioxide BUN Creatinine Glucose POC Glucose 135 H 121 H 185 H Lactic Acid Calcium AST Alkaline Phosphatase CK-MB (CK-2) CK-MB (CK-2) Rel Index Albumin TSH Urine WBC (Auto) Salicylates 03/05/17 03/06/17 11:50 11:52 WBC RBC Hgb Hct MCV MCH RDW Plt Count Lymph % (Auto) [place] % (Auto) Eos % (Auto) Seg Neutrophils % Seg Neuts % (Manual) Lymphocytes % (Manual) Seg Neutrophils # Seg Neutrophils # Man Lymphocytes # (Manual) APTT POC ABG pH ABG pH POC ABG pCO2 POC ABG pO2 ABG pO2 ABG HCO3 ABG Base Excess ABG Hemoglobin VBG pH Oxyhemoglobin Sodium Potassium Chloride Carbon Dioxide BUN Creatinine Glucose POC Glucose 116 H 133 H Lactic Acid Calcium AST Alkaline Phosphatase CK-MB (CK-2) CK-MB (CK-2) Rel Index Albumin TSH Urine WBC (Auto) Salicylates
[2017-03-07] MEDS: HumuLIN R SUB-Q SCH ×4 (00:30→18:47)
[2017-03-07] MEDS: SYNTHROID PO SCH (06:30)
[2017-03-07] MEDS: LEVEMIR (NF) SUB-Q SCH (09:43)
[2017-03-07] MEDS: HEPARIN SUB-Q SCH ×2 (09:43→22:43)
[2017-03-07] MEDS: PEPCID PO SCH ×2 (09:43→22:43)
--- NOTE | 2017-03-07 13:52 | Progress Note ---
Assessment and Plan Imp: 1. Hypoglycemia/hypothermia -> suspect due to too much insulin 2. Hypothyroidism; doubt myxedema coma with normal free T4 3. Acute respiratory failure, hypoxia 4. UTI/SIRS 5. Metabolic encephalopathy Rec: 1. GI/DVT PPx/TFs 2. Reviewed chart; ethics note 01/18/17 recommended AND and "hospice"; trying to get guardianship to sign necessary orders for this (however, I was told they are not willing to sign for withdrawal of ventilator); further care felt to be futile and would only prolong potential suffering without affecting ultimate outcome 3. Comfort care, no escalation of care; would not check any further labs, etc. 4. Poor prognosis Unable to locate family. Subjective Date of service: 03/07/17 Principal diagnosis: Acute respiratory failure,encephalopathy Interval history: No events. On vent. Unresponsive. Active Medications Acetaminophen (Tylenol) 650 mg FEEDTUBE Q6H PRN PRN Reason: Non Cardiac Pain Or Temp>101 Last Admin: 02/27/17 19:34 Dose: 650 mg Lipase/Protease/Amylase (Pancreaze Dr 10,500 Unit) 1 each FEEDTUBE PRN PRN PRN Reason: For Clogged Feeding Tube Dextrose (D50w (25gm) Vial) 50 gm IV PRN PRN PRN Reason: Hypoglycemia Last Admin: 02/17/17 00:10 Dose: 50 gm Famotidine (Pepcid) 20 mg PO BID [facility] Last Admin: 03/07/17 09:43 Dose: 20 mg Heparin Sodium (Porcine) (Heparin) 5,000 unit SUB-Q Q12HR [facility] Last Admin: 03/07/17 09:43 Dose: 5,000 unit Hydralazine HCl (Apresoline) 10 mg IV Q4HR PRN PRN Reason: Hypertension Last Admin: 02/02/17 06:14 Dose: 10 mg Hydrophilic Ointment (Vaseline Lip Therapy) 1 applic TP Q2HR PRN PRN Reason: Dry Lips Insulin Detemir (Levemir) 15 units SUB-Q DAILY [facility] Last Admin: 03/07/17 09:43 Dose: 15 units Insulin Human Regular (Novolin R) 0 units SUB-Q Q6HR PAOLO PRN Reason: Protocol Last Admin: 03/07/17 12:41 Dose: Not Given Levothyroxine Sodium (Synthroid) 100 mcg PO DAILY@0600 [facility] Last Admin: 03/07/17 06:30 Dose: 100 mcg Loperamide HCl (Imodium) 2 mg PO Q2H PRN PRN Reason: Diarrhea Last Admin: 03/04/17 12:35 Dose: 2 mg Multi-Ingred Cream/Lotion/Oil/Oint (Artificial Tears Ophth Oint) 1 applic OU Q4HR PRN PRN Reason: Dry Eye(s) Simple Syrup (Simple Syrup) 15 ml FEEDTUBE PRN PRN PRN Reason: Hypoglycemia Last Admin: 02/28/17 18:56 Dose: 15 ml Simple Syrup (Simple Syrup) 30 ml FEEDTUBE PRN PRN PRN Reason: Hypoglycemia Sodium Bicarbonate (Sodium Bicarbonate) 325 mg FEEDTUBE PRN PRN PRN Reason: For Clogged Feeding Tube Objective Vital Signs - 12hr 03/07/17 03/07/17 03/07/17 02:00 03:32 04:00 Temperature 98.4 F Pulse Rate 65 74 Pulse Rate [ From Monitor] Respiratory 17 19 Rate Blood Pressure 141/78 138/85 O2 Sat by Pulse 100 100 Oximetry 03/07/17 03/07/17 03/07/17 06:00 07:57 08:00 Temperature 97.7 F Pulse Rate 75 84 76 Pulse Rate [ 76 From Monitor] Respiratory 16 15 Rate Blood Pressure 117/79 117/79 121/79 O2 Sat by Pulse 100 100 100 Oximetry 03/07/17 03/07/17 03/07/17 10:00 12:00 12:09 Temperature 99.0 F Pulse Rate 75 70 72 Pulse Rate [ From Monitor] Respiratory 16 15 Rate Blood Pressure 117/75 115/74 115/74 O2 Sat by Pulse 100 100 100 Oximetry Constitutional: no acute distress, alert, other (orally intubated, on vent support) Eyes: non-icteric ENT: oropharynx moist Neck: supple Effort: normal Ascultation: Bilateral: clear Cardiovascular: regular rate and rhythm Gastrointestinal: normoactive bowel sounds, soft, non-tender, non-distended Integumentary: normal Extremities: no cyanosis, no edema, pink and warm Neurologic: other (awake spontaneously, not not following any commands. Fixed stare.) Psychiatric: other (unable to obtain) CBC and BMP: 02/09/17 07:24 02/09/17 07:24 ABG, PT/INR, D-dimer: ABG POC ABG pH 7.442 (7.35-7.45) 01/31/17 18:55 ABG pH 7.420 pH Units (7.350-7.450) 01/17/17 04:35 POC ABG pCO2 32.8 (35-45) L 01/31/17 18:55 ABG pCO2 34.5 mm Hg 01/17/17 04:35 POC ABG pO2 82 (80-105) 01/31/17 18:55 ABG pO2 160.3 mm Hg (80.0-90.0) H 01/17/17 04:35 POC ABG HCO3 22.4 01/31/17 18:55 POC ABG Total CO2 23 01/31/17 18:55 POC ABG O2 Sat 97 01/31/17 18:55 ABG O2 Saturation 99.0 % (95.0-99.0) 01/17/17 04:35 PT/INR, D-dimer PT 14.1 Sec. (12.2-14.9) 01/17/17 04:10 INR 1.04 (0.87-1.13) 01/17/17 04:10 Abnormal lab findings: Abnormal Labs 01/09/17 01/09/17 01/09/17 10:16 10:16 10:16 WBC RBC Hgb 9.7 L Hct 28.4 L MCV 76 L MCH 26 L RDW 17.2 H Plt Count 448 H Lymph % (Auto) Delta % (Auto) Eos % (Auto) Seg Neutrophils % 79.5 H Seg Neuts % (Manual) Lymphocytes % (Manual) Seg Neutrophils # Seg Neutrophils # Man Lymphocytes # (Manual) APTT 39.6 H POC ABG pH ABG pH POC ABG pCO2 POC ABG pO2 ABG pO2 ABG HCO3 ABG Base Excess ABG Hemoglobin VBG pH Oxyhemoglobin Sodium 132 L Potassium Chloride 96.7 L Carbon Dioxide 21 L BUN 34 H Creatinine Glucose POC Glucose Lactic Acid Calcium 8.3 L AST Alkaline Phosphatase 151 H CK-MB (CK-2) 7.1 H CK-MB (CK-2) Rel Index 5.2 H Albumin 3.3 L TSH Urine WBC (Auto) Salicylates 01/09/17 01/09/17 01/09/17 10:16 10:16 10:16 WBC RBC Hgb Hct MCV MCH RDW Plt Count Lymph % (Auto) Delta % (Auto) Eos % (Auto) Seg Neutrophils % Seg Neuts % (Manual) Lymphocytes % (Manual) Seg Neutrophils # Seg Neutrophils # Man Lymphocytes # (Manual) APTT POC ABG pH ABG pH POC ABG pCO2 POC ABG pO2 ABG pO2 ABG HCO3 ABG Base Excess ABG Hemoglobin VBG pH 7.284 L Oxyhemoglobin Sodium Potassium Chloride Carbon Dioxide BUN Creatinine Glucose POC Glucose Lactic Acid Calcium AST Alkaline Phosphatase CK-MB (CK-2) CK-MB (CK-2) Rel Index Albumin TSH 52.800 H Urine WBC (Auto) Salicylates < 0.3 L 01/09/17 01/09/17 01/09/17 10:23 11:14 12:49 WBC RBC Hgb Hct MCV MCH RDW Plt Count Lymph % (Auto) Delta % (Auto) Eos % (Auto) Seg Neutrophils % Seg Neuts % (Manual) Lymphocytes % (Manual) Seg Neutrophils # Seg Neutrophils # Man Lymphocytes # (Manual) APTT POC ABG pH ABG pH POC ABG pCO2 POC ABG pO2 643 H ABG pO2 ABG HCO3 ABG Base Excess ABG Hemoglobin VBG pH Oxyhemoglobin Sodium Potassium Chloride Carbon Dioxide BUN Creatinine Glucose POC Glucose < 40 L Lactic Acid Calcium AST Alkaline Phosphatase CK-MB (CK-2) CK-MB (CK-2) Rel Index Albumin TSH Urine WBC (Auto) 61.0 H Salicylates 01/09/17 01/09/17 01/09/17 13:13 14:21 15:09 WBC RBC Hgb Hct MCV MCH RDW Plt Count Lymph % (Auto) Delta % (Auto) Eos % (Auto) Seg Neutrophils % Seg Neuts % (Manual) Lymphocytes % (Manual) Seg Neutrophils # Seg Neutrophils # Man Lymphocytes # (Manual) APTT POC ABG pH ABG pH POC ABG pCO2 POC ABG pO2 ABG pO2 ABG HCO3 ABG Base Excess ABG Hemoglobin VBG pH Oxyhemoglobin Sodium Potassium Chloride Carbon Dioxide BUN Creatinine Glucose POC Glucose 128 H 65 L 120 H Lactic Acid Calcium AST Alkaline Phosphatase CK-MB (CK-2) CK-MB (CK-2) Rel Index Albumin TSH Urine WBC (Auto) Salicylates 01/09/17 01/09/17 01/10/17 16:28 17:14 04:30 WBC 24.1 H RBC 3.38 L Hgb 8.5 L Hct 26.0 L MCV 77 L MCH 25 L RDW 17.9 H Plt Count 474 H Lymph % (Auto) Delta % (Auto) Eos % (Auto) Seg Neutrophils % Seg Neuts % (Manual) 88.0 H Lymphocytes % (Manual) 4.0 L Seg Neutrophils # Seg Neutrophils # Man 21.2 H Lymphocytes # (Manual) 1.0 L APTT POC ABG pH ABG pH POC ABG pCO2 POC ABG pO2 ABG pO2 ABG HCO3 ABG Base Excess ABG Hemoglobin VBG pH Oxyhemoglobin Sodium Potassium Chloride Carbon Dioxide BUN Creatinine Glucose POC Glucose 44 L 112 H Lactic Acid Calcium AST Alkaline Phosphatase CK-MB (CK-2) CK-MB (CK-2) Rel Index Albumin TSH Urine WBC (Auto) Salicylates 01/10/17 01/10/17 01/10/17 04:30 05:41 05:45 WBC RBC Hgb Hct MCV MCH RDW Plt Count Lymph % (Auto) Delta % (Auto) Eos % (Auto) Seg Neutrophils % Seg Neuts % (Manual) Lymphocytes % (Manual) Seg Neutrophils # Seg Neutrophils # Man Lymphocytes # (Manual) APTT POC ABG pH ABG pH POC ABG pCO2 26.6 L POC ABG pO2 207 H ABG pO2 ABG HCO3 ABG Base Excess ABG Hemoglobin VBG pH Oxyhemoglobin Sodium Potassium Chloride Carbon Dioxide 17 L BUN 27 H Creatinine Glucose POC Glucose 68 L Lactic Acid Calcium 7.5 L AST Alkaline Phosphatase CK-MB (CK-2) CK-MB (CK-2) Rel Index Albumin TSH Urine WBC (Auto) Salicylates 01/10/17 01/10/17 01/10/17 07:47 10:50 13:41 WBC RBC Hgb Hct MCV MCH RDW Plt Count Lymph % (Auto) Delta % (Auto) Eos % (Auto) Seg Neutrophils % Seg Neuts % (Manual) Lymphocytes % (Manual) Seg Neutrophils # Seg Neutrophils # Man Lymphocytes # (Manual) APTT POC ABG pH ABG pH POC ABG pCO2 POC ABG pO2 ABG pO2 ABG HCO3 ABG Base Excess ABG Hemoglobin VBG pH Oxyhemoglobin Sodium Potassium Chloride Carbon Dioxide BUN Creatinine Glucose POC Glucose 148 H 165 H 114 H Lactic Acid Calcium AST Alkaline Phosphatase CK-MB (CK-2) CK-MB (CK-2) Rel Index Albumin TSH Urine WBC (Auto) Salicylates 01/10/17 01/10/17 01/10/17 20:20 21:39 23:24 WBC RBC Hgb Hct MCV MCH RDW Plt Count Lymph % (Auto) Delta % (Auto) Eos % (Auto) Seg Neutrophils % Seg Neuts % (Manual) Lymphocytes % (Manual) Seg Neutrophils # Seg Neutrophils # Man Lymphocytes # (Manual) APTT POC ABG pH ABG pH POC ABG pCO2 POC ABG pO2 ABG pO2 ABG HCO3 ABG Base Excess ABG Hemoglobin VBG pH Oxyhemoglobin Sodium Potassium Chloride Carbon Dioxide BUN Creatinine Glucose POC Glucose 150 H 175 H 155 H Lactic Acid Calcium AST Alkaline Phosphatase CK-MB (CK-2) CK-MB (CK-2) Rel Index Albumin TSH Urine WBC (Auto) Salicylates 01/11/17 01/11/17 01/11/17 00:19 04:06 05:20 WBC 15.2 H RBC 3.40 L Hgb 8.9 L Hct 26.3 L MCV 78 L MCH 26 L RDW 18.6 H Plt Count 462 H Lymph % (Auto) 13.2 L Delta % (Auto) Eos % (Auto) Seg Neutrophils % 80.8 H Seg Neuts % (Manual) Lymphocytes % (Manual) Seg Neutrophils # 12.3 H Seg Neutrophils # Man Lymphocytes # (Manual) APTT POC ABG pH 7.463 H ABG pH POC ABG pCO2 26.2 L POC ABG pO2 185 H ABG pO2 ABG HCO3 ABG Base Excess ABG Hemoglobin VBG pH Oxyhemoglobin Sodium Potassium Chloride Carbon Dioxide BUN Creatinine Glucose POC Glucose 163 H Lactic Acid Calcium AST Alkaline Phosphatase CK-MB (CK-2) CK-MB (CK-2) Rel Index Albumin TSH Urine WBC (Auto) Salicylates 01/11/17 01/11/17 01/11/17 05:20 06:21 07:57 WBC RBC Hgb Hct MCV MCH RDW Plt Count Lymph % (Auto) Delta % (Auto) Eos % (Auto) Seg Neutrophils % Seg Neuts % (Manual) Lymphocytes % (Manual) Seg Neutrophils # Seg Neutrophils # Man Lymphocytes # (Manual) APTT POC ABG pH ABG pH POC ABG pCO2 POC ABG pO2 ABG pO2 ABG HCO3 ABG Base Excess ABG Hemoglobin VBG pH Oxyhemoglobin Sodium Potassium 3.4 L Chloride 111.5 H Carbon Dioxide 17 L BUN Creatinine Glucose 147 H POC Glucose 139 H 188 H Lactic Acid Calcium 8.0 L AST Alkaline Phosphatase CK-MB (CK-2) CK-MB (CK-2) Rel Index Albumin TSH Urine WBC (Auto) Salicylates 01/11/17 01/11/17 01/11/17 11:46 16:50 23:15 WBC RBC Hgb Hct MCV MCH RDW Plt Count Lymph % (Auto) Delta % (Auto) Eos % (Auto) Seg Neutrophils % Seg Neuts % (Manual) Lymphocytes % (Manual) Seg Neutrophils # Seg Neutrophils # Man Lymphocytes # (Manual) APTT POC ABG pH ABG pH POC ABG pCO2 POC ABG pO2 ABG pO2 ABG HCO3 ABG Base Excess ABG Hemoglobin VBG pH Oxyhemoglobin Sodium Potassium Chloride Carbon Dioxide BUN Creatinine Glucose POC Glucose 199 H 235 H 155 H Lactic Acid Calcium AST Alkaline Phosphatase CK-MB (CK-2) CK-MB (CK-2) Rel Index Albumin TSH Urine WBC (Auto) Salicylates 01/12/17 01/12/17 01/12/17 05:02 06:56 14:50 WBC RBC Hgb Hct MCV MCH RDW Plt Count Lymph % (Auto) Delta % (Auto) Eos % (Auto) Seg Neutrophils % Seg Neuts % (Manual) Lymphocytes % (Manual) Seg Neutrophils # Seg Neutrophils # Man Lymphocytes # (Manual) APTT POC ABG pH ABG pH POC ABG pCO2 28.0 L POC ABG pO2 178 H ABG pO2 ABG HCO3 ABG Base Excess ABG Hemoglobin VBG pH Oxyhemoglobin Sodium Potassium Chloride Carbon Dioxide BUN Creatinine Glucose POC Glucose 119 H 164 H Lactic Acid Calcium AST Alkaline Phosphatase CK-MB (CK-2) CK-MB (CK-2) Rel Index Albumin TSH Urine WBC (Auto) Salicylates 01/13/17 01/13/17 01/13/17 03:37 03:37 04:26 WBC RBC 3.61 L Hgb 9.3 L Hct 28.0 L MCV 78 L MCH 26 L RDW 18.2 H Plt Count Lymph % (Auto) Delta % (Auto) Eos % (Auto) Seg Neutrophils % Seg Neuts % (Manual) Lymphocytes % (Manual) Seg Neutrophils # Seg Neutrophils # Man Lymphocytes # (Manual) APTT POC ABG pH 7.485 H ABG pH POC ABG pCO2 25.4 L POC ABG pO2 73 L ABG pO2 ABG HCO3 ABG Base Excess ABG Hemoglobin VBG pH Oxyhemoglobin Sodium Potassium Chloride 112.4 H Carbon Dioxide 19 L BUN Creatinine Glucose 118 H POC Glucose Lactic Acid Calcium 8.0 L AST Alkaline Phosphatase CK-MB (CK-2) CK-MB (CK-2) Rel Index Albumin TSH Urine WBC (Auto) Salicylates 01/13/17 01/13/17 01/13/17 06:15 11:50 17:31 WBC RBC Hgb Hct MCV MCH RDW Plt Count Lymph % (Auto) Delta % (Auto) Eos % (Auto) Seg Neutrophils % Seg Neuts % (Manual) Lymphocytes % (Manual) Seg Neutrophils # Seg Neutrophils # Man Lymphocytes # (Manual) APTT POC ABG pH ABG pH POC ABG pCO2 POC ABG pO2 ABG pO2 ABG HCO3 ABG Base Excess ABG Hemoglobin VBG pH Oxyhemoglobin Sodium Potassium Chloride Carbon Dioxide BUN Creatinine Glucose POC Glucose 116 H 171 H 203 H Lactic Acid Calcium AST Alkaline Phosphatase CK-MB (CK-2) CK-MB (CK-2) Rel Index Albumin TSH Urine WBC (Auto) Salicylates 01/14/17 01/14/17 01/14/17 00:02 04:50 04:50 WBC RBC 3.32 L Hgb 8.5 L Hct 26.1 L MCV 79 L MCH 26 L RDW 18.2 H Plt Count Lymph % (Auto) Delta % (Auto) 9.0 H Eos % (Auto) Seg Neutrophils % Seg Neuts % (Manual) Lymphocytes % (Manual) Seg Neutrophils # Seg Neutrophils # Man Lymphocytes # (Manual) APTT POC ABG pH ABG pH POC ABG pCO2 POC ABG pO2 ABG pO2 ABG HCO3 ABG Base Excess ABG Hemoglobin VBG pH Oxyhemoglobin Sodium Potassium Chloride 112.5 H Carbon Dioxide BUN Creatinine Glucose 149 H POC Glucose 157 H Lactic Acid Calcium 8.1 L AST Alkaline Phosphatase CK-MB (CK-2) CK-MB (CK-2) Rel Index Albumin TSH Urine WBC (Auto) Salicylates 01/14/17 01/14/17 01/14/17 05:10 11:27 14:07 WBC RBC Hgb Hct MCV MCH RDW Plt Count Lymph % (Auto) Delta % (Auto) Eos % (Auto) Seg Neutrophils % Seg Neuts % (Manual) Lymphocytes % (Manual) Seg Neutrophils # Seg Neutrophils # Man Lymphocytes # (Manual) APTT POC ABG pH ABG pH POC ABG pCO2 POC ABG pO2 ABG pO2 ABG HCO3 ABG Base Excess ABG Hemoglobin VBG pH Oxyhemoglobin Sodium Potassium Chloride Carbon Dioxide BUN Creatinine Glucose POC Glucose 176 H 147 H Lactic Acid Calcium AST Alkaline Phosphatase CK-MB (CK-2) CK-MB (CK-2) Rel Index Albumin TSH Urine WBC (Auto) 53.0 H Salicylates 01/14/17 01/15/17 01/15/17 16:52 00:04 05:26 WBC RBC Hgb Hct MCV MCH RDW Plt Count Lymph % (Auto) Delta % (Auto) Eos % (Auto) Seg Neutrophils % Seg Neuts % (Manual) Lymphocytes % (Manual) Seg Neutrophils # Seg Neutrophils # Man Lymphocytes # (Manual) APTT POC ABG pH ABG pH POC ABG pCO2 POC ABG pO2 ABG pO2 ABG HCO3 ABG Base Excess ABG Hemoglobin VBG pH Oxyhemoglobin Sodium Potassium Chloride Carbon Dioxide BUN Creatinine Glucose POC Glucose 131 H 193 H 215 H Lactic Acid Calcium AST Alkaline Phosphatase CK-MB (CK-2) CK-MB (CK-2) Rel Index Albumin TSH Urine WBC (Auto) Salicylates 01/15/17 01/15/17 01/15/17 11:49 17:47 21:33 WBC RBC Hgb Hct MCV MCH RDW Plt Count Lymph % (Auto) Delta % (Auto) Eos % (Auto) Seg Neutrophils % Seg Neuts % (Manual) Lymphocytes % (Manual) Seg Neutrophils # Seg Neutrophils # Man Lymphocytes # (Manual) APTT POC ABG pH ABG pH POC ABG pCO2 POC ABG pO2 ABG pO2 ABG HCO3 ABG Base Excess ABG Hemoglobin VBG pH Oxyhemoglobin Sodium Potassium Chloride Carbon Dioxide BUN Creatinine Glucose POC Glucose 121 H 211 H 275 H Lactic Acid Calcium AST Alkaline Phosphatase CK-MB (CK-2) CK-MB (CK-2) Rel Index Albumin TSH Urine WBC (Auto) Salicylates 01/16/17 01/16/17 01/16/17 04:30 05:28 13:45 WBC RBC Hgb Hct MCV MCH RDW Plt Count Lymph % (Auto) Delta % (Auto) Eos % (Auto) Seg Neutrophils % Seg Neuts % (Manual) Lymphocytes % (Manual) Seg Neutrophils # Seg Neutrophils # Man Lymphocytes # (Manual) APTT POC ABG pH ABG pH 7.457 H POC ABG pCO2 POC ABG pO2 ABG pO2 55.1 L ABG HCO3 19.4 L ABG Base Excess -4.0 L ABG Hemoglobin 6.8 L VBG pH Oxyhemoglobin 94.9 L Sodium Potassium Chloride Carbon Dioxide BUN Creatinine Glucose POC Glucose 271 H 236 H Lactic Acid Calcium AST Alkaline Phosphatase CK-MB (CK-2) CK-MB (CK-2) Rel Index Albumin TSH Urine WBC (Auto) Salicylates 01/16/17 01/17/17 01/17/17 21:39 04:10 04:10 WBC 4.4 L RBC 2.98 L Hgb 7.7 L Hct 23.3 L MCV 78 L MCH 26 L RDW 18.1 H Plt Count Lymph % (Auto) Delta % (Auto) Eos % (Auto) Seg Neutrophils % Seg Neuts % (Manual) Lymphocytes % (Manual) Seg Neutrophils # Seg Neutrophils # Man Lymphocytes # (Manual) APTT POC ABG pH ABG pH POC ABG pCO2 POC ABG pO2 ABG pO2 ABG HCO3 ABG Base Excess ABG Hemoglobin VBG pH Oxyhemoglobin Sodium Potassium 3.3 L Chloride 108.7 H Carbon Dioxide 20 L BUN 8 L Creatinine Glucose 202 H POC Glucose 258 H Lactic Acid Calcium 7.6 L AST Alkaline Phosphatase CK-MB (CK-2) CK-MB (CK-2) Rel Index Albumin TSH Urine WBC (Auto) Salicylates 01/17/17 01/17/17 01/17/17 04:35 12:23 16:01 WBC RBC Hgb Hct MCV MCH RDW Plt Count Lymph % (Auto) Delta % (Auto) Eos % (Auto) Seg Neutrophils % Seg Neuts % (Manual) Lymphocytes % (Manual) Seg Neutrophils # Seg Neutrophils # Man Lymphocytes # (Manual) APTT POC ABG pH ABG pH POC ABG pCO2 POC ABG pO2 ABG pO2 160.3 H ABG HCO3 ABG Base Excess -2.3 L ABG Hemoglobin 7.9 L VBG pH Oxyhemoglobin Sodium Potassium Chloride Carbon Dioxide BUN Creatinine Glucose POC Glucose 321 H 239 H Lactic Acid Calcium AST Alkaline Phosphatase CK-MB (CK-2) CK-MB (CK-2) Rel Index Albumin TSH Urine WBC (Auto) Salicylates 01/18/17 01/18/17 01/18/17 05:07 12:09 17:54 WBC RBC Hgb Hct MCV MCH RDW Plt Count Lymph % (Auto) Delta % (Auto) Eos % (Auto) Seg Neutrophils % Seg Neuts % (Manual) Lymphocytes % (Manual) Seg Neutrophils # Seg Neutrophils # Man Lymphocytes # (Manual) APTT POC ABG pH ABG pH POC ABG pCO2 POC ABG pO2 ABG pO2 ABG HCO3 ABG Base Excess ABG Hemoglobin VBG pH Oxyhemoglobin Sodium Potassium Chloride Carbon Dioxide BUN Creatinine Glucose POC Glucose 155 H 203 H 132 H Lactic Acid Calcium AST Alkaline Phosphatase CK-MB (CK-2) CK-MB (CK-2) Rel Index Albumin TSH Urine WBC (Auto) Salicylates 01/18/17 01/19/17 01/19/17 23:43 04:28 12:11 WBC RBC Hgb Hct MCV MCH RDW Plt Count Lymph % (Auto) Delta % (Auto) Eos % (Auto) Seg Neutrophils % Seg Neuts % (Manual) Lymphocytes % (Manual) Seg Neutrophils # Seg Neutrophils # Man Lymphocytes # (Manual) APTT POC ABG pH ABG pH POC ABG pCO2 POC ABG pO2 ABG pO2 ABG HCO3 ABG Base Excess ABG Hemoglobin VBG pH Oxyhemoglobin Sodium Potassium Chloride Carbon Dioxide BUN Creatinine Glucose POC Glucose 125 H 182 H 153 H Lactic Acid Calcium AST Alkaline Phosphatase CK-MB (CK-2) CK-MB (CK-2) Rel Index Albumin TSH Urine WBC (Auto) Salicylates 01/19/17 01/20/17 01/20/17 17:23 00:12 05:44 WBC RBC Hgb Hct MCV MCH RDW Plt Count Lymph % (Auto) Delta % (Auto) Eos % (Auto) Seg Neutrophils % Seg Neuts % (Manual) Lymphocytes % (Manual) Seg Neutrophils # Seg Neutrophils # Man Lymphocytes # (Manual) APTT POC ABG pH ABG pH POC ABG pCO2 POC ABG pO2 ABG pO2 ABG HCO3 ABG Base Excess ABG Hemoglobin VBG pH Oxyhemoglobin Sodium Potassium Chloride Carbon Dioxide BUN Creatinine Glucose POC Glucose 66 L 139 H 176 H Lactic Acid Calcium AST Alkaline Phosphatase CK-MB (CK-2) CK-MB (CK-2) Rel Index Albumin TSH Urine WBC (Auto) Salicylates 01/20/17 01/20/1717 11:48 17:42 23:43 WBC RBC Hgb Hct MCV MCH RDW Plt Count Lymph % (Auto) Delta % (Auto) Eos % (Auto) Seg Neutrophils % Seg Neuts % (Manual) Lymphocytes % (Manual) Seg Neutrophils # Seg Neutrophils # Man Lymphocytes # (Manual) APTT POC ABG pH ABG pH POC ABG pCO2 POC ABG pO2 ABG pO2 ABG HCO3 ABG Base Excess ABG Hemoglobin VBG pH Oxyhemoglobin Sodium Potassium Chloride Carbon Dioxide BUN Creatinine Glucose POC Glucose 218 H 132 H 178 H Lactic Acid Calcium AST Alkaline Phosphatase CK-MB (CK-2) CK-MB (CK-2) Rel Index Albumin TSH Urine WBC (Auto) Salicylates 01/21/17 01/21/17 01/21/17 05:34 11:17 23:37 WBC RBC Hgb Hct MCV MCH RDW Plt Count Lymph % (Auto) Delta % (Auto) Eos % (Auto) Seg Neutrophils % Seg Neuts % (Manual) Lymphocytes % (Manual) Seg Neutrophils # Seg Neutrophils # Man Lymphocytes # (Manual) APTT POC ABG pH ABG pH POC ABG pCO2 POC ABG pO2 ABG pO2 ABG HCO3 ABG Base Excess ABG Hemoglobin VBG pH Oxyhemoglobin Sodium Potassium Chloride Carbon Dioxide BUN Creatinine Glucose POC Glucose 106 H 213 H 140 H Lactic Acid Calcium AST Alkaline Phosphatase CK-MB (CK-2) CK-MB (CK-2) Rel Index Albumin TSH Urine WBC (Auto) Salicylates 01/22/17 01/22/17 01/22/17 04:00 04:00 04:58 WBC RBC 3.26 L Hgb 8.3 L Hct 25.5 L MCV 78 L MCH 25 L RDW 17.9 H Plt Count Lymph % (Auto) Delta % (Auto) 7.9 H Eos % (Auto) 6.2 H Seg Neutrophils % Seg Neuts % (Manual) Lymphocytes % (Manual) Seg Neutrophils # Seg Neutrophils # Man Lymphocytes # (Manual) APTT POC ABG pH ABG pH POC ABG pCO2 POC ABG pO2 ABG pO2 ABG HCO3 ABG Base Excess ABG Hemoglobin VBG pH Oxyhemoglobin Sodium Potassium Chloride 95.5 L Carbon Dioxide 31 H D BUN Creatinine Glucose 134 H POC Glucose 146 H Lactic Acid Calcium AST 44 H Alkaline Phosphatase 379 H CK-MB (CK-2) CK-MB (CK-2) Rel Index Albumin 2.7 L TSH Urine WBC (Auto) Salicylates 01/22/17 01/22/17 01/22/17 12:12 18:12 23:39 WBC RBC Hgb Hct MCV MCH RDW Plt Count Lymph % (Auto) Delta % (Auto) Eos % (Auto) Seg Neutrophils % Seg Neuts % (Manual) Lymphocytes % (Manual) Seg Neutrophils # Seg Neutrophils # Man Lymphocytes # (Manual) APTT POC ABG pH ABG pH POC ABG pCO2 POC ABG pO2 ABG pO2 ABG HCO3 ABG Base Excess ABG Hemoglobin VBG pH Oxyhemoglobin Sodium Potassium Chloride Carbon Dioxide BUN Creatinine Glucose POC Glucose 255 H 182 H 134 H Lactic Acid Calcium AST Alkaline Phosphatase CK-MB (CK-2) CK-MB (CK-2) Rel Index Albumin TSH Urine WBC (Auto) Salicylates 01/23/17 01/23/17 01/23/17 04:43 12:12 17:36 WBC RBC Hgb Hct MCV MCH RDW Plt Count Lymph % (Auto) Delta % (Auto) Eos % (Auto) Seg Neutrophils % Seg Neuts % (Manual) Lymphocytes % (Manual) Seg Neutrophils # Seg Neutrophils # Man Lymphocytes # (Manual) APTT POC ABG pH ABG pH POC ABG pCO2 POC ABG pO2 ABG pO2 ABG HCO3 ABG Base Excess ABG Hemoglobin VBG pH Oxyhemoglobin Sodium Potassium Chloride Carbon Dioxide BUN Creatinine Glucose POC Glucose 218 H 128 H 156 H Lactic Acid Calcium AST Alkaline Phosphatase CK-MB (CK-2) CK-MB (CK-2) Rel Index Albumin TSH Urine WBC (Auto) Salicylates 01/24/17 01/24/17 01/24/17 00:08 05:16 11:40 WBC RBC Hgb Hct MCV MCH RDW Plt Count Lymph % (Auto) Delta % (Auto) Eos % (Auto) Seg Neutrophils % Seg Neuts % (Manual) Lymphocytes % (Manual) Seg Neutrophils # Seg Neutrophils # Man Lymphocytes # (Manual) APTT POC ABG pH ABG pH POC ABG pCO2 POC ABG pO2 ABG pO2 ABG HCO3 ABG Base Excess ABG Hemoglobin VBG pH Oxyhemoglobin Sodium Potassium Chloride Carbon Dioxide BUN Creatinine Glucose POC Glucose 129 H 169 H 187 H Lactic Acid Calcium AST Alkaline Phosphatase CK-MB (CK-2) CK-MB (CK-2) Rel Index Albumin TSH Urine WBC (Auto) Salicylates 01/24/17 01/24/17 01/25/17 17:43 23:23 04:56 WBC RBC Hgb Hct MCV MCH RDW Plt Count Lymph % (Auto) Delta % (Auto) Eos % (Auto) Seg Neutrophils % Seg Neuts % (Manual) Lymphocytes % (Manual) Seg Neutrophils # Seg Neutrophils # Man Lymphocytes # (Manual) APTT POC ABG pH ABG pH POC ABG pCO2 POC ABG pO2 ABG pO2 ABG HCO3 ABG Base Excess ABG Hemoglobin VBG pH Oxyhemoglobin Sodium Potassium Chloride Carbon Dioxide BUN Creatinine Glucose POC Glucose 215 H 222 H 210 H Lactic Acid Calcium AST Alkaline Phosphatase CK-MB (CK-2) CK-MB (CK-2) Rel Index Albumin TSH Urine WBC (Auto) Salicylates 01/25/17 01/25/17 01/26/17 11:52 17:37 00:02 WBC RBC Hgb Hct MCV MCH RDW Plt Count Lymph % (Auto) Delta % (Auto) Eos % (Auto) Seg Neutrophils % Seg Neuts % (Manual) Lymphocytes % (Manual) Seg Neutrophils # Seg Neutrophils # Man Lymphocytes # (Manual) APTT POC ABG pH ABG pH POC ABG pCO2 POC ABG pO2 ABG pO2 ABG HCO3 ABG Base Excess ABG Hemoglobin VBG pH Oxyhemoglobin Sodium Potassium Chloride Carbon Dioxide BUN Creatinine Glucose POC Glucose 284 H 218 H 192 H Lactic Acid Calcium AST Alkaline Phosphatase CK-MB (CK-2) CK-MB (CK-2) Rel Index Albumin TSH Urine WBC (Auto) Salicylates 01/26/17 01/26/17 01/26/17 05:33 12:17 17:50 WBC RBC Hgb Hct MCV MCH RDW Plt Count Lymph % (Auto) Delta % (Auto) Eos % (Auto) Seg Neutrophils % Seg Neuts % (Manual) Lymphocytes % (Manual) Seg Neutrophils # Seg Neutrophils # Man Lymphocytes # (Manual) APTT POC ABG pH ABG pH POC ABG pCO2 POC ABG pO2 ABG pO2 ABG HCO3 ABG Base Excess ABG Hemoglobin VBG pH Oxyhemoglobin Sodium Potassium Chloride Carbon Dioxide BUN Creatinine Glucose POC Glucose 199 H 227 H 229 H Lactic Acid Calcium AST Alkaline Phosphatase CK-MB (CK-2) CK-MB (CK-2) Rel Index Albumin TSH Urine WBC (Auto) Salicylates 01/26/17 01/27/17 01/27/17 23:57 05:31 11:42 WBC RBC Hgb Hct MCV MCH RDW Plt Count Lymph % (Auto) Delta % (Auto) Eos % (Auto) Seg Neutrophils % Seg Neuts % (Manual) Lymphocytes % (Manual) Seg Neutrophils # Seg Neutrophils # Man Lymphocytes # (Manual) APTT POC ABG pH ABG pH POC ABG pCO2 POC ABG pO2 ABG pO2 ABG HCO3 ABG Base Excess ABG Hemoglobin VBG pH Oxyhemoglobin Sodium Potassium Chloride Carbon Dioxide BUN Creatinine Glucose POC Glucose 186 H 285 H 260 H Lactic Acid Calcium AST Alkaline Phosphatase CK-MB (CK-2) CK-MB (CK-2) Rel Index Albumin TSH Urine WBC (Auto) Salicylates 01/27/17 01/27/17 01/27/17 17:47 23:58 Unknown WBC 12.1 H RBC 3.28 L Hgb 8.5 L Hct 25.5 L MCV 78 L MCH 26 L RDW 16.8 H Plt Count 601 H Lymph % (Auto) Delta % (Auto) Eos % (Auto) Seg Neutrophils % Seg Neuts % (Manual) Lymphocytes % (Manual) Seg Neutrophils # Seg Neutrophils # Man Lymphocytes # (Manual) APTT POC ABG pH ABG pH POC ABG pCO2 POC ABG pO2 ABG pO2 ABG HCO3 ABG Base Excess ABG Hemoglobin VBG pH Oxyhemoglobin Sodium Potassium Chloride Carbon Dioxide BUN Creatinine Glucose POC Glucose 329 H 225 H Lactic Acid Calcium AST Alkaline Phosphatase CK-MB (CK-2) CK-MB (CK-2) Rel Index Albumin TSH Urine WBC (Auto) Salicylates 01/27/17 01/28/17 01/28/17 Unknown 03:44 03:44 WBC RBC 3.14 L Hgb 8.2 L Hct 24.1 L MCV 77 L MCH 26 L RDW 16.9 H Plt Count 567 H Lymph % (Auto) Delta % (Auto) Eos % (Auto) Seg Neutrophils % Seg Neuts % (Manual) Lymphocytes % (Manual) Seg Neutrophils # Seg Neutrophils # Man Lymphocytes # (Manual) APTT POC ABG pH ABG pH POC ABG pCO2 POC ABG pO2 ABG pO2 ABG HCO3 ABG Base Excess ABG Hemoglobin VBG pH Oxyhemoglobin Sodium 128 L Potassium 5.4 H Chloride 87.5 L Carbon Dioxide BUN 44 H 42 H Creatinine Glucose 250 H 128 H POC Glucose Lactic Acid Calcium AST Alkaline Phosphatase CK-MB (CK-2) CK-MB (CK-2) Rel Index Albumin TSH Urine WBC (Auto) Salicylates 01/28/17 01/28/17 01/28/17 11:43 16:47 17:52 WBC RBC Hgb Hct MCV MCH RDW Plt Count Lymph % (Auto) Delta % (Auto) Eos % (Auto) Seg Neutrophils % Seg Neuts % (Manual) Lymphocytes % (Manual) Seg Neutrophils # Seg Neutrophils # Man Lymphocytes # (Manual) APTT POC ABG pH ABG pH POC ABG pCO2 POC ABG pO2 ABG pO2 ABG HCO3 ABG Base Excess ABG Hemoglobin VBG pH Oxyhemoglobin Sodium Potassium Chloride Carbon Dioxide BUN Creatinine Glucose POC Glucose 351 H 249 H Lactic Acid Calcium AST Alkaline Phosphatase CK-MB (CK-2) CK-MB (CK-2) Rel Index Albumin TSH Urine WBC (Auto) > 182.0 H Salicylates 01/29/17 01/29/17 01/29/17 05:25 05:25 09:32 WBC 13.6 H RBC 3.25 L Hgb 8.3 L Hct 25.1 L MCV 77 L MCH 26 L RDW 16.8 H Plt Count 514 H Lymph % (Auto) Delta % (Auto) Eos % (Auto) Seg Neutrophils % Seg Neuts % (Manual) Lymphocytes % (Manual) Seg Neutrophils # Seg Neutrophils # Man Lymphocytes # (Manual) APTT POC ABG pH ABG pH POC ABG pCO2 POC ABG pO2 ABG pO2 ABG HCO3 ABG Base Excess ABG Hemoglobin VBG pH Oxyhemoglobin Sodium Potassium Chloride 97.8 L Carbon Dioxide BUN 34 H Creatinine Glucose 222 H POC Glucose Lactic Acid 2.50 H* Calcium AST Alkaline Phosphatase CK-MB (CK-2) CK-MB (CK-2) Rel Index Albumin TSH Urine WBC (Auto) Salicylates 01/29/17 01/29/17 01/29/17 11:56 18:11 23:55 WBC RBC Hgb Hct MCV MCH RDW Plt Count Lymph % (Auto) Delta % (Auto) Eos % (Auto) Seg Neutrophils % Seg Neuts % (Manual) Lymphocytes % (Manual) Seg Neutrophils # Seg Neutrophils # Man Lymphocytes # (Manual) APTT POC ABG pH ABG pH POC ABG pCO2 POC ABG pO2 ABG pO2 ABG HCO3 ABG Base Excess ABG Hemoglobin VBG pH Oxyhemoglobin Sodium Potassium Chloride Carbon Dioxide BUN Creatinine Glucose POC Glucose 261 H 215 H 176 H Lactic Acid Calcium AST Alkaline Phosphatase CK-MB (CK-2) CK-MB (CK-2) Rel Index Albumin TSH Urine WBC (Auto) Salicylates 01/30/17 01/30/17 01/30/17 05:31 05:31 05:34 WBC 15.2 H RBC 3.09 L Hgb 7.9 L Hct 23.9 L MCV 77 L MCH 26 L RDW 16.9 H Plt Count 569 H Lymph % (Auto) Delta % (Auto) Eos % (Auto) Seg Neutrophils % Seg Neuts % (Manual) Lymphocytes % (Manual) Seg Neutrophils # Seg Neutrophils # Man Lymphocytes # (Manual) APTT POC ABG pH ABG pH POC ABG pCO2 POC ABG pO2 ABG pO2 ABG HCO3 ABG Base Excess ABG Hemoglobin VBG pH Oxyhemoglobin Sodium Potassium Chloride Carbon Dioxide BUN 24 H Creatinine Glucose 235 H POC Glucose 243 H Lactic Acid Calcium AST Alkaline Phosphatase CK-MB (CK-2) CK-MB (CK-2) Rel Index Albumin TSH Urine WBC (Auto) Salicylates 01/30/17 01/30/17 01/30/17 11:38 17:58 23:29 WBC RBC Hgb Hct MCV MCH RDW Plt Count Lymph % (Auto) Delta % (Auto) Eos % (Auto) Seg Neutrophils % Seg Neuts % (Manual) Lymphocytes % (Manual) Seg Neutrophils # Seg Neutrophils # Man Lymphocytes # (Manual) APTT POC ABG pH ABG pH POC ABG pCO2 POC ABG pO2 ABG pO2 ABG HCO3 ABG Base Excess ABG Hemoglobin VBG pH Oxyhemoglobin Sodium Potassium Chloride Carbon Dioxide BUN Creatinine Glucose POC Glucose 298 H 208 H 245 H Lactic Acid Calcium AST Alkaline Phosphatase CK-MB (CK-2) CK-MB (CK-2) Rel Index Albumin TSH Urine WBC (Auto) Salicylates 01/31/17 01/31/17 01/31/17 04:39 04:39 05:57 WBC 11.4 H RBC 3.22 L Hgb 8.2 L Hct 24.9 L MCV 78 L MCH 25 L RDW 17.2 H Plt Count 576 H Lymph % (Auto) Delta % (Auto) Eos % (Auto) Seg Neutrophils % Seg Neuts % (Manual) Lymphocytes % (Manual) Seg Neutrophils # Seg Neutrophils # Man Lymphocytes # (Manual) APTT POC ABG pH ABG pH POC ABG pCO2 POC ABG pO2 ABG pO2 ABG HCO3 ABG Base Excess ABG Hemoglobin VBG pH Oxyhemoglobin Sodium Potassium Chloride Carbon Dioxide BUN Creatinine 0.7 L Glucose 223 H POC Glucose 264 H Lactic Acid Calcium AST Alkaline Phosphatase CK-MB (CK-2) CK-MB (CK-2) Rel Index Albumin TSH Urine WBC (Auto) Salicylates 01/31/17 01/31/17 01/31/17 12:23 17:41 18:55 WBC RBC Hgb Hct MCV MCH RDW Plt Count Lymph % (Auto) Delta % (Auto) Eos % (Auto) Seg Neutrophils % Seg Neuts % (Manual) Lymphocytes % (Manual) Seg Neutrophils # Seg Neutrophils # Man Lymphocytes # (Manual) APTT POC ABG pH ABG pH POC ABG pCO2 32.8 L POC ABG pO2 ABG pO2 ABG HCO3 ABG Base Excess ABG Hemoglobin VBG pH Oxyhemoglobin Sodium Potassium Chloride Carbon Dioxide BUN Creatinine Glucose POC Glucose 252 H 208 H Lactic Acid Calcium AST Alkaline Phosphatase CK-MB (CK-2) CK-MB (CK-2) Rel Index Albumin TSH Urine WBC (Auto) Salicylates 01/31/17 02/01/17 02/01/17 22:59 03:38 03:38 WBC RBC 2.81 L Hgb 7.4 L Hct 22.1 L MCV 79 L MCH 27 L RDW 17.0 H Plt Count 540 H Lymph % (Auto) Delta % (Auto) Eos % (Auto) Seg Neutrophils % Seg Neuts % (Manual) Lymphocytes % (Manual) Seg Neutrophils # Seg Neutrophils # Man Lymphocytes # (Manual) APTT POC ABG pH ABG pH POC ABG pCO2 POC ABG pO2 ABG pO2 ABG HCO3 ABG Base Excess ABG Hemoglobin VBG pH Oxyhemoglobin Sodium Potassium Chloride Carbon Dioxide 21 L BUN Creatinine 0.7 L Glucose POC Glucose 40 L Lactic Acid Calcium AST Alkaline Phosphatase CK-MB (CK-2) CK-MB (CK-2) Rel Index Albumin TSH Urine WBC (Auto) Salicylates 02/01/17 02/01/17 02/01/17 05:17 12:19 16:44 WBC RBC Hgb Hct MCV MCH RDW Plt Count Lymph % (Auto) Delta % (Auto) Eos % (Auto) Seg Neutrophils % Seg Neuts % (Manual) Lymphocytes % (Manual) Seg Neutrophils # Seg Neutrophils # Man Lymphocytes # (Manual) APTT POC ABG pH ABG pH POC ABG pCO2 POC ABG pO2 ABG pO2 ABG HCO3 ABG Base Excess ABG Hemoglobin VBG pH Oxyhemoglobin Sodium Potassium Chloride Carbon Dioxide BUN Creatinine Glucose POC Glucose 140 H 213 H 172 H Lactic Acid Calcium AST Alkaline Phosphatase CK-MB (CK-2) CK-MB (CK-2) Rel Index Albumin TSH Urine WBC (Auto) Salicylates 02/01/17 02/02/17 02/02/17 23:59 05:14 11:24 WBC RBC Hgb Hct MCV MCH RDW Plt Count Lymph % (Auto) Delta % (Auto) Eos % (Auto) Seg Neutrophils % Seg Neuts % (Manual) Lymphocytes % (Manual) Seg Neutrophils # Seg Neutrophils # Man Lymphocytes # (Manual) APTT POC ABG pH ABG pH POC ABG pCO2 POC ABG pO2 ABG pO2 ABG HCO3 ABG Base Excess ABG Hemoglobin VBG pH Oxyhemoglobin Sodium Potassium Chloride Carbon Dioxide BUN Creatinine Glucose POC Glucose 181 H 194 H 209 H Lactic Acid Calcium AST Alkaline Phosphatase CK-MB (CK-2) CK-MB (CK-2) Rel Index Albumin TSH Urine WBC (Auto) Salicylates 02/02/17 02/02/17 02/02/17 11:46 11:46 17:47 WBC RBC 2.94 L Hgb 7.5 L Hct 23.0 L MCV 78 L MCH 25 L RDW 16.9 H Plt Count 520 H Lymph % (Auto) Delta % (Auto) Eos % (Auto) Seg Neutrophils % Seg Neuts % (Manual) Lymphocytes % (Manual) Seg Neutrophils # Seg Neutrophils # Man Lymphocytes # (Manual) APTT POC ABG pH ABG pH POC ABG pCO2 POC ABG pO2 ABG pO2 ABG HCO3 ABG Base Excess ABG Hemoglobin VBG pH Oxyhemoglobin Sodium Potassium Chloride Carbon Dioxide BUN Creatinine 0.6 L Glucose 189 H POC Glucose 147 H Lactic Acid Calcium 8.1 L AST Alkaline Phosphatase CK-MB (CK-2) CK-MB (CK-2) Rel Index Albumin TSH Urine WBC (Auto) Salicylates 02/02/17 02/03/17 02/03/17 23:32 05:53 11:19 WBC RBC Hgb Hct MCV MCH RDW Plt Count Lymph % (Auto) Delta % (Auto) Eos % (Auto) Seg Neutrophils % Seg Neuts % (Manual) Lymphocytes % (Manual) Seg Neutrophils # Seg Neutrophils # Man Lymphocytes # (Manual) APTT POC ABG pH ABG pH POC ABG pCO2 POC ABG pO2 ABG pO2 ABG HCO3 ABG Base Excess ABG Hemoglobin VBG pH Oxyhemoglobin Sodium Potassium Chloride Carbon Dioxide BUN Creatinine Glucose POC Glucose 176 H 224 H 228 H Lactic Acid Calcium AST Alkaline Phosphatase CK-MB (CK-2) CK-MB (CK-2) Rel Index Albumin TSH Urine WBC (Auto) Salicylates 02/03/17 02/03/17 02/04/17 16:59 23:38 05:45 WBC RBC Hgb Hct MCV MCH RDW Plt Count Lymph % (Auto) Delta % (Auto) Eos % (Auto) Seg Neutrophils % Seg Neuts % (Manual) Lymphocytes % (Manual) Seg Neutrophils # Seg Neutrophils # Man Lymphocytes # (Manual) APTT POC ABG pH ABG pH POC ABG pCO2 POC ABG pO2 ABG pO2 ABG HCO3 ABG Base Excess ABG Hemoglobin VBG pH Oxyhemoglobin Sodium Potassium Chloride Carbon Dioxide BUN Creatinine Glucose POC Glucose 189 H 191 H 251 H Lactic Acid Calcium AST Alkaline Phosphatase CK-MB (CK-2) CK-MB (CK-2) Rel Index Albumin TSH Urine WBC (Auto) Salicylates 02/04/17 02/04/17 02/05/17 11:20 17:20 00:17 WBC RBC Hgb Hct MCV MCH RDW Plt Count Lymph % (Auto) Delta % (Auto) Eos % (Auto) Seg Neutrophils % Seg Neuts % (Manual) Lymphocytes % (Manual) Seg Neutrophils # Seg Neutrophils # Man Lymphocytes # (Manual) APTT POC ABG pH ABG pH POC ABG pCO2 POC ABG pO2 ABG pO2 ABG HCO3 ABG Base Excess ABG Hemoglobin VBG pH Oxyhemoglobin Sodium Potassium Chloride Carbon Dioxide BUN Creatinine Glucose POC Glucose 243 H 163 H 200 H Lactic Acid Calcium AST Alkaline Phosphatase CK-MB (CK-2) CK-MB (CK-2) Rel Index Albumin TSH Urine WBC (Auto) Salicylates 02/05/17 02/05/17 02/05/17 05:38 12:38 16:29 WBC RBC Hgb Hct MCV MCH RDW Plt Count Lymph % (Auto) Delta % (Auto) Eos % (Auto) Seg Neutrophils % Seg Neuts % (Manual) Lymphocytes % (Manual) Seg Neutrophils # Seg Neutrophils # Man Lymphocytes # (Manual) APTT POC ABG pH ABG pH POC ABG pCO2 POC ABG pO2 ABG pO2 ABG HCO3 ABG Base Excess ABG Hemoglobin VBG pH Oxyhemoglobin Sodium Potassium Chloride Carbon Dioxide BUN Creatinine Glucose POC Glucose 248 H 241 H 257 H Lactic Acid Calcium AST Alkaline Phosphatase CK-MB (CK-2) CK-MB (CK-2) Rel Index Albumin TSH Urine WBC (Auto) Salicylates 02/05/17 02/06/17 02/06/17 23:56 05:30 11:50 WBC RBC Hgb Hct MCV MCH RDW Plt Count Lymph % (Auto) Delta % (Auto) Eos % (Auto) Seg Neutrophils % Seg Neuts % (Manual) Lymphocytes % (Manual) Seg Neutrophils # Seg Neutrophils # Man Lymphocytes # (Manual) APTT POC ABG pH ABG pH POC ABG pCO2 POC ABG pO2 ABG pO2 ABG HCO3 ABG Base Excess ABG Hemoglobin VBG pH Oxyhemoglobin Sodium Potassium Chloride Carbon Dioxide BUN Creatinine Glucose POC Glucose 258 H 120 H 254 H Lactic Acid Calcium AST Alkaline Phosphatase CK-MB (CK-2) CK-MB (CK-2) Rel Index Albumin TSH Urine WBC (Auto) Salicylates 02/06/17 02/06/17 02/07/17 17:11 23:50 05:22 WBC RBC Hgb Hct MCV MCH RDW Plt Count Lymph % (Auto) Delta % (Auto) Eos % (Auto) Seg Neutrophils % Seg Neuts % (Manual) Lymphocytes % (Manual) Seg Neutrophils # Seg Neutrophils # Man Lymphocytes # (Manual) APTT POC ABG pH ABG pH POC ABG pCO2 POC ABG pO2 ABG pO2 ABG HCO3 ABG Base Excess ABG Hemoglobin VBG pH Oxyhemoglobin Sodium Potassium Chloride Carbon Dioxide BUN Creatinine Glucose POC Glucose 149 H 240 H 258 H Lactic Acid Calcium AST Alkaline Phosphatase CK-MB (CK-2) CK-MB (CK-2) Rel Index Albumin TSH Urine WBC (Auto) Salicylates 02/07/17 02/07/17 02/07/17 11:15 18:33 23:59 WBC RBC Hgb Hct MCV MCH RDW Plt Count Lymph % (Auto) Delta % (Auto) Eos % (Auto) Seg Neutrophils % Seg Neuts % (Manual) Lymphocytes % (Manual) Seg Neutrophils # Seg Neutrophils # Man Lymphocytes # (Manual) APTT POC ABG pH ABG pH POC ABG pCO2 POC ABG pO2 ABG pO2 ABG HCO3 ABG Base Excess ABG Hemoglobin VBG pH Oxyhemoglobin Sodium Potassium Chloride Carbon Dioxide BUN Creatinine Glucose POC Glucose 239 H 176 H 186 H Lactic Acid Calcium AST Alkaline Phosphatase CK-MB (CK-2) CK-MB (CK-2) Rel Index Albumin TSH Urine WBC (Auto) Salicylates 02/08/17 02/08/17 02/08/17 06:15 11:55 16:55 WBC RBC Hgb Hct MCV MCH RDW Plt Count Lymph % (Auto) Delta % (Auto) Eos % (Auto) Seg Neutrophils % Seg Neuts % (Manual) Lymphocytes % (Manual) Seg Neutrophils # Seg Neutrophils # Man Lymphocytes # (Manual) APTT POC ABG pH ABG pH POC ABG pCO2 POC ABG pO2 ABG pO2 ABG HCO3 ABG Base Excess ABG Hemoglobin VBG pH Oxyhemoglobin Sodium Potassium Chloride Carbon Dioxide BUN Creatinine Glucose POC Glucose 195 H 129 H 246 H Lactic Acid Calcium AST Alkaline Phosphatase CK-MB (CK-2) CK-MB (CK-2) Rel Index Albumin TSH Urine WBC (Auto) Salicylates 02/08/17 02/09/17 02/09/17 23:51 05:51 07:24 WBC 14.7 H RBC 3.39 L Hgb 8.9 L Hct 26.4 L MCV 78 L MCH 26 L RDW 18.4 H Plt Count 670 H Lymph % (Auto) 11.8 L Delta % (Auto) Eos % (Auto) Seg Neutrophils % 81.2 H Seg Neuts % (Manual) Lymphocytes % (Manual) Seg Neutrophils # 11.9 H Seg Neutrophils # Man Lymphocytes # (Manual) APTT POC ABG pH ABG pH POC ABG pCO2 POC ABG pO2 ABG pO2 ABG HCO3 ABG Base Excess ABG Hemoglobin VBG pH Oxyhemoglobin Sodium Potassium Chloride Carbon Dioxide BUN Creatinine Glucose POC Glucose 262 H 295 H Lactic Acid Calcium AST Alkaline Phosphatase CK-MB (CK-2) CK-MB (CK-2) Rel Index Albumin TSH Urine WBC (Auto) Salicylates 02/09/17 02/09/17 02/09/17 07:24 12:08 18:39 WBC RBC Hgb Hct MCV MCH RDW Plt Count Lymph % (Auto) Delta % (Auto) Eos % (Auto) Seg Neutrophils % Seg Neuts % (Manual) Lymphocytes % (Manual) Seg Neutrophils # Seg Neutrophils # Man Lymphocytes # (Manual) APTT POC ABG pH ABG pH POC ABG pCO2 POC ABG pO2 ABG pO2 ABG HCO3 ABG Base Excess ABG Hemoglobin VBG pH Oxyhemoglobin Sodium Potassium Chloride 95.5 L Carbon Dioxide BUN 52 H Creatinine Glucose 277 H POC Glucose 236 H 151 H Lactic Acid Calcium AST Alkaline Phosphatase CK-MB (CK-2) CK-MB (CK-2) Rel Index Albumin TSH Urine WBC (Auto) Salicylates 02/10/17 02/10/17 02/10/17 00:01 05:44 11:21 WBC RBC Hgb Hct MCV MCH RDW Plt Count Lymph % (Auto) Delta % (Auto) Eos % (Auto) Seg Neutrophils % Seg Neuts % (Manual) Lymphocytes % (Manual) Seg Neutrophils # Seg Neutrophils # Man Lymphocytes # (Manual) APTT POC ABG pH ABG pH POC ABG pCO2 POC ABG pO2 ABG pO2 ABG HCO3 ABG Base Excess ABG Hemoglobin VBG pH Oxyhemoglobin Sodium Potassium Chloride Carbon Dioxide BUN Creatinine Glucose POC Glucose 210 H 201 H 233 H Lactic Acid Calcium AST Alkaline Phosphatase CK-MB (CK-2) CK-MB (CK-2) Rel Index Albumin TSH Urine WBC (Auto) Salicylates 02/10/17 02/10/17 02/11/17 17:29 23:56 05:24 WBC RBC Hgb Hct MCV MCH RDW Plt Count Lymph % (Auto) Delta % (Auto) Eos % (Auto) Seg Neutrophils % Seg Neuts % (Manual) Lymphocytes % (Manual) Seg Neutrophils # Seg Neutrophils # Man Lymphocytes # (Manual) APTT POC ABG pH ABG pH POC ABG pCO2 POC ABG pO2 ABG pO2 ABG HCO3 ABG Base Excess ABG Hemoglobin VBG pH Oxyhemoglobin Sodium Potassium Chloride Carbon Dioxide BUN Creatinine Glucose POC Glucose 167 H 191 H 135 H Lactic Acid Calcium AST Alkaline Phosphatase CK-MB (CK-2) CK-MB (CK-2) Rel Index Albumin TSH Urine WBC (Auto) Salicylates 11/03/17 11/03/17 11/03/17 12:25 17:03 23:59 WBC RBC Hgb Hct MCV MCH RDW Plt Count Lymph % (Auto) Delta % (Auto) Eos % (Auto) Seg Neutrophils % Seg Neuts % (Manual) Lymphocytes % (Manual) Seg Neutrophils # Seg Neutrophils # Man Lymphocytes # (Manual) APTT POC ABG pH ABG pH POC ABG pCO2 POC ABG pO2 ABG pO2 ABG HCO3 ABG Base Excess ABG Hemoglobin VBG pH Oxyhemoglobin Sodium Potassium Chloride Carbon Dioxide BUN Creatinine Glucose POC Glucose 275 H 172 H 215 H Lactic Acid Calcium AST Alkaline Phosphatase CK-MB (CK-2) CK-MB (CK-2) Rel Index Albumin TSH Urine WBC (Auto) Salicylates 02/12/17 02/12/17 02/12/17 05:39 11:33 17:55 WBC RBC Hgb Hct MCV MCH RDW Plt Count Lymph % (Auto) Delta % (Auto) Eos % (Auto) Seg Neutrophils % Seg Neuts % (Manual) Lymphocytes % (Manual) Seg Neutrophils # Seg Neutrophils # Man Lymphocytes # (Manual) APTT POC ABG pH ABG pH POC ABG pCO2 POC ABG pO2 ABG pO2 ABG HCO3 ABG Base Excess ABG Hemoglobin VBG pH Oxyhemoglobin Sodium Potassium Chloride Carbon Dioxide BUN Creatinine Glucose POC Glucose 261 H 217 H 172 H Lactic Acid Calcium AST Alkaline Phosphatase CK-MB (CK-2) CK-MB (CK-2) Rel Index Albumin TSH Urine WBC (Auto) Salicylates 02/13/17 02/13/17 02/13/17 00:25 06:46 11:26 WBC RBC Hgb Hct MCV MCH RDW Plt Count Lymph % (Auto) Delta % (Auto) Eos % (Auto) Seg Neutrophils % Seg Neuts % (Manual) Lymphocytes % (Manual) Seg Neutrophils # Seg Neutrophils # Man Lymphocytes # (Manual) APTT POC ABG pH ABG pH POC ABG pCO2 POC ABG pO2 ABG pO2 ABG HCO3 ABG Base Excess ABG Hemoglobin VBG pH Oxyhemoglobin Sodium Potassium Chloride Carbon Dioxide BUN Creatinine Glucose POC Glucose 207 H 219 H 231 H Lactic Acid Calcium AST Alkaline Phosphatase CK-MB (CK-2) CK-MB (CK-2) Rel Index Albumin TSH Urine WBC (Auto) Salicylates 02/13/17 02/13/17 02/14/17 17:12 23:44 05:44 WBC RBC Hgb Hct MCV MCH RDW Plt Count Lymph % (Auto) Delta % (Auto) Eos % (Auto) Seg Neutrophils % Seg Neuts % (Manual) Lymphocytes % (Manual) Seg Neutrophils # Seg Neutrophils # Man Lymphocytes # (Manual) APTT POC ABG pH ABG pH POC ABG pCO2 POC ABG pO2 ABG pO2 ABG HCO3 ABG Base Excess ABG Hemoglobin VBG pH Oxyhemoglobin Sodium Potassium Chloride Carbon Dioxide BUN Creatinine Glucose POC Glucose 190 H 256 H 184 H Lactic Acid Calcium AST Alkaline Phosphatase CK-MB (CK-2) CK-MB (CK-2) Rel Index Albumin TSH Urine WBC (Auto) Salicylates 02/14/17 02/14/17 02/14/17 12:21 17:57 23:18 WBC RBC Hgb Hct MCV MCH RDW Plt Count Lymph % (Auto) Delta % (Auto) Eos % (Auto) Seg Neutrophils % Seg Neuts % (Manual) Lymphocytes % (Manual) Seg Neutrophils # Seg Neutrophils # Man Lymphocytes # (Manual) APTT POC ABG pH ABG pH POC ABG pCO2 POC ABG pO2 ABG pO2 ABG HCO3 ABG Base Excess ABG Hemoglobin VBG pH Oxyhemoglobin Sodium Potassium Chloride Carbon Dioxide BUN Creatinine Glucose POC Glucose 233 H 155 H 165 H Lactic Acid Calcium AST Alkaline Phosphatase CK-MB (CK-2) CK-MB (CK-2) Rel Index Albumin TSH Urine WBC (Auto) Salicylates 02/15/17 02/15/17 02/15/17 05:33 11:45 17:20 WBC RBC Hgb Hct MCV MCH RDW Plt Count Lymph % (Auto) Delta % (Auto) Eos % (Auto) Seg Neutrophils % Seg Neuts % (Manual) Lymphocytes % (Manual) Seg Neutrophils # Seg Neutrophils # Man Lymphocytes # (Manual) APTT POC ABG pH ABG pH POC ABG pCO2 POC ABG pO2 ABG pO2 ABG HCO3 ABG Base Excess ABG Hemoglobin VBG pH Oxyhemoglobin Sodium Potassium Chloride Carbon Dioxide BUN Creatinine Glucose POC Glucose 239 H 130 H 189 H Lactic Acid Calcium AST Alkaline Phosphatase CK-MB (CK-2) CK-MB (CK-2) Rel Index Albumin TSH Urine WBC (Auto) Salicylates 02/16/17 02/16/17 02/16/17 00:14 05:09 12:31 WBC RBC Hgb Hct MCV MCH RDW Plt Count Lymph % (Auto) Delta % (Auto) Eos % (Auto) Seg Neutrophils % Seg Neuts % (Manual) Lymphocytes % (Manual) Seg Neutrophils # Seg Neutrophils # Man Lymphocytes # (Manual) APTT POC ABG pH ABG pH POC ABG pCO2 POC ABG pO2 ABG pO2 ABG HCO3 ABG Base Excess ABG Hemoglobin VBG pH Oxyhemoglobin Sodium Potassium Chloride Carbon Dioxide BUN Creatinine Glucose POC Glucose 197 H 226 H 178 H Lactic Acid Calcium AST Alkaline Phosphatase CK-MB (CK-2) CK-MB (CK-2) Rel Index Albumin TSH Urine WBC (Auto) Salicylates 02/16/17 02/16/17 02/17/17 16:35 23:49 05:37 WBC RBC Hgb Hct MCV MCH RDW Plt Count Lymph % (Auto) Delta % (Auto) Eos % (Auto) Seg Neutrophils % Seg Neuts % (Manual) Lymphocytes % (Manual) Seg Neutrophils # Seg Neutrophils # Man Lymphocytes # (Manual) APTT POC ABG pH ABG pH POC ABG pCO2 POC ABG pO2 ABG pO2 ABG HCO3 ABG Base Excess ABG Hemoglobin VBG pH Oxyhemoglobin Sodium Potassium Chloride Carbon Dioxide BUN Creatinine Glucose POC Glucose 174 H 62 L 153 H Lactic Acid Calcium AST Alkaline Phosphatase CK-MB (CK-2) CK-MB (CK-2) Rel Index Albumin TSH Urine WBC (Auto) Salicylates 02/17/17 02/17/17 02/17/17 11:39 17:02 22:24 WBC RBC Hgb Hct MCV MCH RDW Plt Count Lymph % (Auto) Delta % (Auto) Eos % (Auto) Seg Neutrophils % Seg Neuts % (Manual) Lymphocytes % (Manual) Seg Neutrophils # Seg Neutrophils # Man Lymphocytes # (Manual) APTT POC ABG pH ABG pH POC ABG pCO2 POC ABG pO2 ABG pO2 ABG HCO3 ABG Base Excess ABG Hemoglobin VBG pH Oxyhemoglobin Sodium Potassium Chloride Carbon Dioxide BUN Creatinine Glucose POC Glucose 231 H 112 H 116 H Lactic Acid Calcium AST Alkaline Phosphatase CK-MB (CK-2) CK-MB (CK-2) Rel Index Albumin TSH Urine WBC (Auto) Salicylates 02/18/17 02/19/17 02/19/17 15:34 05:09 07:57 WBC RBC Hgb Hct MCV MCH RDW Plt Count Lymph % (Auto) Delta % (Auto) Eos % (Auto) Seg Neutrophils % Seg Neuts % (Manual) Lymphocytes % (Manual) Seg Neutrophils # Seg Neutrophils # Man Lymphocytes # (Manual) APTT POC ABG pH ABG pH POC ABG pCO2 POC ABG pO2 ABG pO2 ABG HCO3 ABG Base Excess ABG Hemoglobin VBG pH Oxyhemoglobin Sodium Potassium Chloride Carbon Dioxide BUN Creatinine Glucose POC Glucose 215 H 218 H 283 H Lactic Acid Calcium AST Alkaline Phosphatase CK-MB (CK-2) CK-MB (CK-2) Rel Index Albumin TSH Urine WBC (Auto) Salicylates 02/19/17 02/19/17 02/20/17 14:49 22:10 05:10 WBC RBC Hgb Hct MCV MCH RDW Plt Count Lymph % (Auto) Delta % (Auto) Eos % (Auto) Seg Neutrophils % Seg Neuts % (Manual) Lymphocytes % (Manual) Seg Neutrophils # Seg Neutrophils # Man Lymphocytes # (Manual) APTT POC ABG pH ABG pH POC ABG pCO2 POC ABG pO2 ABG pO2 ABG HCO3 ABG Base Excess ABG Hemoglobin VBG pH Oxyhemoglobin Sodium Potassium Chloride Carbon Dioxide BUN Creatinine Glucose POC Glucose 290 H 169 H 209 H Lactic Acid Calcium AST Alkaline Phosphatase CK-MB (CK-2) CK-MB (CK-2) Rel Index Albumin TSH Urine WBC (Auto) Salicylates 02/20/17 02/20/17 02/21/17 15:05 21:52 02:00 WBC RBC Hgb Hct MCV MCH RDW Plt Count Lymph % (Auto) Delta % (Auto) Eos % (Auto) Seg Neutrophils % Seg Neuts % (Manual) Lymphocytes % (Manual) Seg Neutrophils # Seg Neutrophils # Man Lymphocytes # (Manual) APTT POC ABG pH ABG pH POC ABG pCO2 POC ABG pO2 ABG pO2 ABG HCO3 ABG Base Excess ABG Hemoglobin VBG pH Oxyhemoglobin Sodium Potassium Chloride Carbon Dioxide BUN Creatinine Glucose POC Glucose 172 H 209 H 216 H Lactic Acid Calcium AST Alkaline Phosphatase CK-MB (CK-2) CK-MB (CK-2) Rel Index Albumin TSH Urine WBC (Auto) Salicylates 02/21/17 02/21/17 02/21/17 04:54 14:43 17:47 WBC RBC Hgb Hct MCV MCH RDW Plt Count Lymph % (Auto) Delta % (Auto) Eos % (Auto) Seg Neutrophils % Seg Neuts % (Manual) Lymphocytes % (Manual) Seg Neutrophils # Seg Neutrophils # Man Lymphocytes # (Manual) APTT POC ABG pH ABG pH POC ABG pCO2 POC ABG pO2 ABG pO2 ABG HCO3 ABG Base Excess ABG Hemoglobin VBG pH Oxyhemoglobin Sodium Potassium Chloride Carbon Dioxide BUN Creatinine Glucose POC Glucose 227 H 290 H 220 H Lactic Acid Calcium AST Alkaline Phosphatase CK-MB (CK-2) CK-MB (CK-2) Rel Index Albumin TSH Urine WBC (Auto) Salicylates 02/21/17 02/22/17 02/22/17 22:02 04:52 15:25 WBC RBC Hgb Hct MCV MCH RDW Plt Count Lymph % (Auto) Delta % (Auto) Eos % (Auto) Seg Neutrophils % Seg Neuts % (Manual) Lymphocytes % (Manual) Seg Neutrophils # Seg Neutrophils # Man Lymphocytes # (Manual) APTT POC ABG pH ABG pH POC ABG pCO2 POC ABG pO2 ABG pO2 ABG HCO3 ABG Base Excess ABG Hemoglobin VBG pH Oxyhemoglobin Sodium Potassium Chloride Carbon Dioxide BUN Creatinine Glucose POC Glucose 246 H 212 H 236 H Lactic Acid Calcium AST Alkaline Phosphatase CK-MB (CK-2) CK-MB (CK-2) Rel Index Albumin TSH Urine WBC (Auto) Salicylates 02/22/17 02/23/17 02/23/17 21:33 06:04 10:00 WBC RBC Hgb Hct MCV MCH RDW Plt Count Lymph % (Auto) Delta % (Auto) Eos % (Auto) Seg Neutrophils % Seg Neuts % (Manual) Lymphocytes % (Manual) Seg Neutrophils # Seg Neutrophils # Man Lymphocytes # (Manual) APTT POC ABG pH ABG pH POC ABG pCO2 POC ABG pO2 ABG pO2 ABG HCO3 ABG Base Excess ABG Hemoglobin VBG pH Oxyhemoglobin Sodium Potassium Chloride Carbon Dioxide BUN Creatinine Glucose POC Glucose 255 H 208 H 174 H Lactic Acid Calcium AST Alkaline Phosphatase CK-MB (CK-2) CK-MB (CK-2) Rel Index Albumin TSH Urine WBC (Auto) Salicylates 02/23/17 02/23/17 02/23/17 12:52 17:15 21:51 WBC RBC Hgb Hct MCV MCH RDW Plt Count Lymph % (Auto) Delta % (Auto) Eos % (Auto) Seg Neutrophils % Seg Neuts % (Manual) Lymphocytes % (Manual) Seg Neutrophils # Seg Neutrophils # Man Lymphocytes # (Manual) APTT POC ABG pH ABG pH POC ABG pCO2 POC ABG pO2 ABG pO2 ABG HCO3 ABG Base Excess ABG Hemoglobin VBG pH Oxyhemoglobin Sodium Potassium Chloride Carbon Dioxide BUN Creatinine Glucose POC Glucose 203 H 269 H 205 H Lactic Acid Calcium AST Alkaline Phosphatase CK-MB (CK-2) CK-MB (CK-2) Rel Index Albumin TSH Urine WBC (Auto) Salicylates 02/24/17 02/24/17 02/24/17 10:23 17:45 21:24 WBC RBC Hgb Hct MCV MCH RDW Plt Count Lymph % (Auto) Delta % (Auto) Eos % (Auto) Seg Neutrophils % Seg Neuts % (Manual) Lymphocytes % (Manual) Seg Neutrophils # Seg Neutrophils # Man Lymphocytes # (Manual) APTT POC ABG pH ABG pH POC ABG pCO2 POC ABG pO2 ABG pO2 ABG HCO3 ABG Base Excess ABG Hemoglobin VBG pH Oxyhemoglobin Sodium Potassium Chloride Carbon Dioxide BUN Creatinine Glucose POC Glucose 280 H 239 H 254 H Lactic Acid Calcium AST Alkaline Phosphatase CK-MB (CK-2) CK-MB (CK-2) Rel Index Albumin TSH Urine WBC (Auto) Salicylates 02/25/17 02/25/17 02/25/17 02:12 05:17 14:32 WBC RBC Hgb Hct MCV MCH RDW Plt Count Lymph % (Auto) Delta % (Auto) Eos % (Auto) Seg Neutrophils % Seg Neuts % (Manual) Lymphocytes % (Manual) Seg Neutrophils # Seg Neutrophils # Man Lymphocytes # (Manual) APTT POC ABG pH ABG pH POC ABG pCO2 POC ABG pO2 ABG pO2 ABG HCO3 ABG Base Excess ABG Hemoglobin VBG pH Oxyhemoglobin Sodium Potassium Chloride Carbon Dioxide BUN Creatinine Glucose POC Glucose 296 H 332 H 353 H Lactic Acid Calcium AST Alkaline Phosphatase CK-MB (CK-2) CK-MB (CK-2) Rel Index Albumin TSH Urine WBC (Auto) Salicylates 02/25/17 02/26/17 02/26/17 22:14 00:37 05:52 WBC RBC Hgb Hct MCV MCH RDW Plt Count Lymph % (Auto) Delta % (Auto) Eos % (Auto) Seg Neutrophils % Seg Neuts % (Manual) Lymphocytes % (Manual) Seg Neutrophils # Seg Neutrophils # Man Lymphocytes # (Manual) APTT POC ABG pH ABG pH POC ABG pCO2 POC ABG pO2 ABG pO2 ABG HCO3 ABG Base Excess ABG Hemoglobin VBG pH Oxyhemoglobin Sodium Potassium Chloride Carbon Dioxide BUN Creatinine Glucose POC Glucose 201 H 233 H 269 H Lactic Acid Calcium AST Alkaline Phosphatase CK-MB (CK-2) CK-MB (CK-2) Rel Index Albumin TSH Urine WBC (Auto) Salicylates 02/26/17 02/26/17 02/26/17 11:48 13:49 21:26 WBC RBC Hgb Hct MCV MCH RDW Plt Count Lymph % (Auto) Delta % (Auto) Eos % (Auto) Seg Neutrophils % Seg Neuts % (Manual) Lymphocytes % (Manual) Seg Neutrophils # Seg Neutrophils # Man Lymphocytes # (Manual) APTT POC ABG pH ABG pH POC ABG pCO2 POC ABG pO2 ABG pO2 ABG HCO3 ABG Base Excess ABG Hemoglobin VBG pH Oxyhemoglobin Sodium Potassium Chloride Carbon Dioxide BUN Creatinine Glucose POC Glucose 333 H 322 H 244 H Lactic Acid Calcium AST Alkaline Phosphatase CK-MB (CK-2) CK-MB (CK-2) Rel Index Albumin TSH Urine WBC (Auto) Salicylates 02/27/17 02/27/17 02/27/17 05:27 13:51 21:48 WBC RBC Hgb Hct MCV MCH RDW Plt Count Lymph % (Auto) Delta % (Auto) Eos % (Auto) Seg Neutrophils % Seg Neuts % (Manual) Lymphocytes % (Manual) Seg Neutrophils # Seg Neutrophils # Man Lymphocytes # (Manual) APTT POC ABG pH ABG pH POC ABG pCO2 POC ABG pO2 ABG pO2 ABG HCO3 ABG Base Excess ABG Hemoglobin VBG pH Oxyhemoglobin Sodium Potassium Chloride Carbon Dioxide BUN Creatinine Glucose POC Glucose 217 H 239 H 254 H Lactic Acid Calcium AST Alkaline Phosphatase CK-MB (CK-2) CK-MB (CK-2) Rel Index Albumin TSH Urine WBC (Auto) Salicylates 02/28/17 02/28/17 02/28/17 05:38 11:00 19:44 WBC RBC Hgb Hct MCV MCH RDW Plt Count Lymph % (Auto) Delta % (Auto) Eos % (Auto) Seg Neutrophils % Seg Neuts % (Manual) Lymphocytes % (Manual) Seg Neutrophils # Seg Neutrophils # Man Lymphocytes # (Manual) APTT POC ABG pH ABG pH POC ABG pCO2 POC ABG pO2 ABG pO2 ABG HCO3 ABG Base Excess ABG Hemoglobin VBG pH Oxyhemoglobin Sodium Potassium Chloride Carbon Dioxide BUN Creatinine Glucose POC Glucose 325 H 203 H 116 H Lactic Acid Calcium AST Alkaline Phosphatase CK-MB (CK-2) CK-MB (CK-2) Rel Index Albumin TSH Urine WBC (Auto) Salicylates 03/01/17 03/01/17 03/01/17 00:08 05:31 12:17 WBC RBC Hgb Hct MCV MCH RDW Plt Count Lymph % (Auto) Delta % (Auto) Eos % (Auto) Seg Neutrophils % Seg Neuts % (Manual) Lymphocytes % (Manual) Seg Neutrophils # Seg Neutrophils # Man Lymphocytes # (Manual) APTT POC ABG pH ABG pH POC ABG pCO2 POC ABG pO2 ABG pO2 ABG HCO3 ABG Base Excess ABG Hemoglobin VBG pH Oxyhemoglobin Sodium Potassium Chloride Carbon Dioxide BUN Creatinine Glucose POC Glucose 202 H 183 H 184 H Lactic Acid Calcium AST Alkaline Phosphatase CK-MB (CK-2) CK-MB (CK-2) Rel Index Albumin TSH Urine WBC (Auto) Salicylates 03/02/17 03/02/17 03/02/17 00:12 05:58 18:22 WBC RBC Hgb Hct MCV MCH RDW Plt Count Lymph % (Auto) Delta % (Auto) Eos % (Auto) Seg Neutrophils % Seg Neuts % (Manual) Lymphocytes % (Manual) Seg Neutrophils # Seg Neutrophils # Man Lymphocytes # (Manual) APTT POC ABG pH ABG pH POC ABG pCO2 POC ABG pO2 ABG pO2 ABG HCO3 ABG Base Excess ABG Hemoglobin VBG pH Oxyhemoglobin Sodium Potassium Chloride Carbon Dioxide BUN Creatinine Glucose POC Glucose 117 H 176 H 156 H Lactic Acid Calcium AST Alkaline Phosphatase CK-MB (CK-2) CK-MB (CK-2) Rel Index Albumin TSH Urine WBC (Auto) Salicylates 03/02/17 03/03/17 03/03/17 23:51 05:44 11:32 WBC RBC Hgb Hct MCV MCH RDW Plt Count Lymph % (Auto) Delta % (Auto) Eos % (Auto) Seg Neutrophils % Seg Neuts % (Manual) Lymphocytes % (Manual) Seg Neutrophils # Seg Neutrophils # Man Lymphocytes # (Manual) APTT POC ABG pH ABG pH POC ABG pCO2 POC ABG pO2 ABG pO2 ABG HCO3 ABG Base Excess ABG Hemoglobin VBG pH Oxyhemoglobin Sodium Potassium Chloride Carbon Dioxide BUN Creatinine Glucose POC Glucose 211 H 117 H 133 H Lactic Acid Calcium AST Alkaline Phosphatase CK-MB (CK-2) CK-MB (CK-2) Rel Index Albumin TSH Urine WBC (Auto) Salicylates 03/03/17 03/03/17 03/04/17 17:43 23:17 05:30 WBC RBC Hgb Hct MCV MCH RDW Plt Count Lymph % (Auto) Delta % (Auto) Eos % (Auto) Seg Neutrophils % Seg Neuts % (Manual) Lymphocytes % (Manual) Seg Neutrophils # Seg Neutrophils # Man Lymphocytes # (Manual) APTT POC ABG pH ABG pH POC ABG pCO2 POC ABG pO2 ABG pO2 ABG HCO3 ABG Base Excess ABG Hemoglobin VBG pH Oxyhemoglobin Sodium Potassium Chloride Carbon Dioxide BUN Creatinine Glucose POC Glucose 206 H 170 H 126 H Lactic Acid Calcium AST Alkaline Phosphatase CK-MB (CK-2) CK-MB (CK-2) Rel Index Albumin TSH Urine WBC (Auto) Salicylates 03/04/17 03/04/17 03/05/17 12:17 17:27 05:20 WBC RBC Hgb Hct MCV MCH RDW Plt Count Lymph % (Auto) Delta % (Auto) Eos % (Auto) Seg Neutrophils % Seg Neuts % (Manual) Lymphocytes % (Manual) Seg Neutrophils # Seg Neutrophils # Man Lymphocytes # (Manual) APTT POC ABG pH ABG pH POC ABG pCO2 POC ABG pO2 ABG pO2 ABG HCO3 ABG Base Excess ABG Hemoglobin VBG pH Oxyhemoglobin Sodium Potassium Chloride Carbon Dioxide BUN Creatinine Glucose POC Glucose 135 H 121 H 185 H Lactic Acid Calcium AST Alkaline Phosphatase CK-MB (CK-2) CK-MB (CK-2) Rel Index Albumin TSH Urine WBC (Auto) Salicylates 03/05/17 03/06/17 03/06/17 11:50 11:52 17:34 WBC RBC Hgb Hct MCV MCH RDW Plt Count Lymph % (Auto) Delta % (Auto) Eos % (Auto) Seg Neutrophils % Seg Neuts % (Manual) Lymphocytes % (Manual) Seg Neutrophils # Seg Neutrophils # Man Lymphocytes # (Manual) APTT POC ABG pH ABG pH POC ABG pCO2 POC ABG pO2 ABG pO2 ABG HCO3 ABG Base Excess ABG Hemoglobin VBG pH Oxyhemoglobin Sodium Potassium Chloride Carbon Dioxide BUN Creatinine Glucose POC Glucose 116 H 133 H 181 H Lactic Acid Calcium AST Alkaline Phosphatase CK-MB (CK-2) CK-MB (CK-2) Rel Index Albumin TSH Urine WBC (Auto) Salicylates 03/07/17 03/07/17 05:21 11:36 WBC RBC Hgb Hct MCV MCH RDW Plt Count Lymph % (Auto) Delta % (Auto) Eos % (Auto) Seg Neutrophils % Seg Neuts % (Manual) Lymphocytes % (Manual) Seg Neutrophils # Seg Neutrophils # Man Lymphocytes # (Manual) APTT POC ABG pH ABG pH POC ABG pCO2 POC ABG pO2 ABG pO2 ABG HCO3 ABG Base Excess ABG Hemoglobin VBG pH Oxyhemoglobin Sodium Potassium Chloride Carbon Dioxide BUN Creatinine Glucose POC Glucose 159 H 137 H Lactic Acid Calcium AST Alkaline Phosphatase CK-MB (CK-2) CK-MB (CK-2) Rel Index Albumin TSH Urine WBC (Auto) Salicylates
[2017-03-08] MEDS: HumuLIN R SUB-Q SCH ×4 (06:29→19:15)
[2017-03-08] MEDS: SYNTHROID PO SCH (06:32)
--- NOTE | 2017-03-08 08:20 | Progress Note ---
Assessment and Plan Assessment and plan: Hypoglycemic brain injury. Patient was found hypoglycemic. He is now in coma, vegetative state, Unresponsive Persistent vegetative state. Supportive care Metabolic encephalopathy due to hypoglycemia Hypoglycemia/hypothermia, resolved Acute respiratory failure. Intubated, on ventilator. Hyponatremia. Now resolved. Hypothyroidism Diabetes mellitus type 2. Check fingerstick glucose q 6h. Continue Levemir subcut daily Hypertension. BP stable Leukocytosis due to UTI. UTI with ESBL. Patient is DNR- awaiting hospice placement, needs guardianship from the state to give consent, as has no family to give consent History Interval history: Patient found unresponsive, diagnosed with hypoglycemia with brain injury, Still unresponsive, no new events Hospitalist Physical - Physical exam Narrative exam: Gen Appearance: Not in acute distress, malnourished, intubated HEENT: normocephalic, atraumatic Neck: supple, no JVD Lungs: clear to auscultation bilaterally, no crackles or wheezes Heart: S1 and S2 regular, no murmurs, rubs or gallop Abdomen: Soft , non tender, non distended, normal bowel sounds Extremity: No edema, clubbing or cyanosis Neuro : Intubated, Unresponsive, vegetative state - Constitutional Vitals: Temp Pulse Resp BP Pulse Ox 98.7 F 74 14 129/86 100 03/08/17 08:00 03/08/17 08:02 03/08/17 08:02 03/08/17 08:02 03/08/17 08:02 General appearance: Present: no acute distress, well-nourished Results - Labs CBC & Chem 7: 02/09/17 07:24 02/09/17 07:24 Labs: Laboratory Last Values WBC 14.7 K/mm3 (4.5-11.0) H 02/09/17 07:24 RBC 3.39 M/mm3 (3.65-5.03) L 02/09/17 07:24 Hgb 8.9 gm/dl (11.8-15.2) L 02/09/17 07:24 Hct 26.4 % (35.5-45.6) L 02/09/17 07:24 MCV 78 fl (84-94) L 02/09/17 07:24 MCH 26 pg (28-32) L 02/09/17 07:24 MCHC 34 % (32-34) 02/09/17 07:24 RDW 18.4 % (13.2-15.2) H 02/09/17 07:24 Plt Count 670 K/mm3 (140-440) H 02/09/17 07:24 Lymph % (Auto) 11.8 % (13.4-35.0) L 02/09/17 07:24 Howell % (Auto) 4.7 % (0.0-7.3) 02/09/17 07:24 Eos % (Auto) 1.9 % (0.0-4.3) 02/09/17 07:24 Baso % (Auto) 0.4 % (0.0-1.8) 02/09/17 07:24 Lymph # 1.7 K/mm3 (1.2-5.4) 02/09/17 07:24 Howell # 0.7 K/mm3 (0.0-0.8) 02/09/17 07:24 Eos # 0.3 K/mm3 (0.0-0.4) 02/09/17 07:24 Baso # 0.1 K/mm3 (0.0-0.1) 02/09/17 07:24 Add Manual Diff Complete 01/10/17 04:30 Total Counted 100 01/10/17 04:30 Seg Neutrophils % 81.2 % (40.0-70.0) H 02/09/17 07:24 Seg Neuts % (Manual) 88.0 % (40.0-70.0) H 01/10/17 04:30 Band Neutrophils % 7.0 % 01/10/17 04:30 Lymphocytes % (Manual) 4.0 % (13.4-35.0) L 01/10/17 04:30 Reactive Lymphs % (Man) 0 % 01/10/17 04:30 Monocytes % (Manual) 1.0 % (0.0-7.3) 01/10/17 04:30 Eosinophils % (Manual) 0 % (0.0-4.3) 01/10/17 04:30 Basophils % (Manual) 0 % (0.0-1.8) 01/10/17 04:30 Metamyelocytes % 0 % 01/10/17 04:30 Myelocytes % 0 % 01/10/17 04:30 Promyelocytes % 0 % 01/10/17 04:30 Blast Cells % 0 % 01/10/17 04:30 Nucleated RBC % Not Reportable 01/10/17 04:30 Seg Neutrophils # 11.9 K/mm3 (1.8-7.7) H 02/09/17 07:24 Seg Neutrophils # Man 21.2 K/mm3 (1.8-7.7) H 01/10/17 04:30 Band Neutrophils # 1.7 K/mm3 01/10/17 04:30 Lymphocytes # (Manual) 1.0 K/mm3 (1.2-5.4) L 01/10/17 04:30 Abs React Lymphs (Man) 0.0 K/mm3 01/10/17 04:30 Monocytes # (Manual) 0.2 K/mm3 (0.0-0.8) 01/10/17 04:30 Eosinophils # (Manual) 0.0 K/mm3 (0.0-0.4) 01/10/17 04:30 Basophils # (Manual) 0.0 K/mm3 (0.0-0.1) 01/10/17 04:30 Metamyelocytes # 0.0 K/mm3 01/10/17 04:30 Myelocytes # 0.0 K/mm3 01/10/17 04:30 Promyelocytes # 0.0 K/mm3 01/10/17 04:30 Blast Cells # 0.0 K/mm3 01/10/17 04:30 WBC Morphology Not Reportable 01/10/17 04:30 Hypersegmented Neuts Not Reportable 01/10/17 04:30 Hyposegmented Neuts Not Reportable 01/10/17 04:30 Hypogranular Neuts Not Reportable 01/10/17 04:30 Smudge Cells Not Reportable 01/10/17 04:30 Toxic Granulation Not Reportable 01/10/17 04:30 Toxic Vacuolation Not Reportable 01/10/17 04:30 Dohle Bodies Not Reportable 01/10/17 04:30 Pelger-Huet Anomaly Not Reportable 01/10/17 04:30 Shelby Rods Not Reportable 01/10/17 04:30 Platelet Estimate Consistent w auto 01/10/17 04:30 Clumped Platelets Not Reportable 01/10/17 04:30 Plt Clumps, EDTA Not Reportable 01/10/17 04:30 Large Platelets Not Reportable 01/10/17 04:30 Giant Platelets Not Reportable 01/10/17 04:30 Platelet Satelliting Not Reportable 01/10/17 04:30 Plt Morphology Comment Not Reportable 01/10/17 04:30 RBC Morphology Not Reportable 01/10/17 04:30 Dimorphic RBCs Not Reportable 01/10/17 04:30 Polychromasia Not Reportable 01/10/17 04:30 Hypochromasia 1+ 01/10/17 04:30 Poikilocytosis Not Reportable 01/10/17 04:30 Anisocytosis Not Reportable 01/10/17 04:30 Microcytosis Not Reportable 01/10/17 04:30 Macrocytosis Not Reportable 01/10/17 04:30 Spherocytes Not Reportable 01/10/17 04:30 Pappenheimer Bodies Not Reportable 01/10/17 04:30 Sickle Cells Not Reportable 01/10/17 04:30 Target Cells Not Reportable 01/10/17 04:30 Tear Drop Cells Not Reportable 01/10/17 04:30 Ovalocytes Not Reportable 01/10/17 04:30 Helmet Cells Not Reportable 01/10/17 04:30 Jarrett-Merna Bodies Not Reportable 01/10/17 04:30 Magnolia Rings Not Reportable 01/10/17 04:30 Jessica Cells Not Reportable 01/10/17 04:30 Bite Cells Not Reportable 01/10/17 04:30 Crenated Cell Not Reportable 01/10/17 04:30 Elliptocytes Not Reportable 01/10/17 04:30 Acanthocytes (Spur) Not Reportable 01/10/17 04:30 Rouleaux Not Reportable 01/10/17 04:30 Hemoglobin C Crystals Not Reportable 01/10/17 04:30 Schistocytes Not Reportable 01/10/17 04:30 Malaria parasites Not Reportable 01/10/17 04:30 Kyle Bodies Not Reportable 01/10/17 04:30 Hem Pathologist Commnt No 01/10/17 04:30 PT 14.1 Sec. (12.2-14.9) 01/17/17 04:10 INR 1.04 (0.87-1.13) 01/17/17 04:10 APTT 36.6 Sec. (24.2-36.6) 01/17/17 04:10 POC ABG pH 7.442 (7.35-7.45) 01/31/17 18:55 ABG pH 7.420 pH Units (7.350-7.450) 01/17/17 04:35 POC ABG pCO2 32.8 (35-45) L 01/31/17 18:55 ABG pCO2 34.5 mm Hg 01/17/17 04:35 POC ABG pO2 82 (80-105) 01/31/17 18:55 ABG pO2 160.3 mm Hg (80.0-90.0) H 01/17/17 04:35 POC ABG HCO3 22.4 01/31/17 18:55 ABG HCO3 21.9 mmol/L (20.0-26.0) 01/17/17 04:35 POC ABG Total CO2 23 01/31/17 18:55 POC ABG O2 Sat 97 01/31/17 18:55 ABG O2 Saturation 99.0 % (95.0-99.0) 01/17/17 04:35 ABG O2 Content 11.1 (0.0-44) 01/17/17 04:35 POC ABG Base Excess -2 01/31/17 18:55 ABG Base Excess -2.3 mmol/L (-2.0-3.0) L 01/17/17 04:35 ABG Hemoglobin 7.9 gm/dl (14.0-18.0) L 01/17/17 04:35 ABG Carboxyhemoglobin 1.5 % (0.0-5.0) 01/17/17 04:35 ABG Methemoglobin 0.5 % (0.0-1.5) 01/17/17 04:35 VBG pH 7.284 (7.320-7.420) L 01/09/17 10:16 Oxyhemoglobin 97.1 % (95.0-99.0) 01/17/17 04:35 FiO2 25 % 01/31/17 18:55 Sodium 137 mmol/L (137-145) 02/09/17 07:24 Potassium 4.9 mmol/L (3.6-5.0) 02/09/17 07:24 Chloride 95.5 mmol/L (98-107) L 02/09/17 07:24 Carbon Dioxide 29 mmol/L (22-30) 02/09/17 07:24 Anion Gap 17 mmol/L 02/09/17 07:24 BUN 52 mg/dL (9-20) H 02/09/17 07:24 Creatinine 0.8 mg/dL (0.8-1.5) 02/09/17 07:24 Estimated GFR > 60 ml/min 02/09/17 07:24 BUN/Creatinine Ratio 65 % 02/09/17 07:24 Glucose 277 mg/dL (75-100) H 02/09/17 07:24 POC Glucose 122 (70-105) H 03/08/17 05:51 Lactic Acid 0.80 mmol/L (0.7-2.0) 01/30/17 11:49 Calcium 9.4 mg/dL (8.4-10.2) 02/09/17 07:24 Phosphorus 3.60 mg/dL (2.5-4.5) 01/22/17 04:00 Magnesium 2.10 mg/dL (1.7-2.3) 01/22/17 04:00 Total Bilirubin 0.30 mg/dL (0.1-1.2) 01/22/17 04:00 AST 44 units/L (5-40) H 01/22/17 04:00 ALT 23 units/L (7-56) 01/22/17 04:00 Alkaline Phosphatase 379 units/L (35-129) H 01/22/17 04:00 Ammonia 35.0 umol/L (25-60) 01/09/17 10:16 Total Creatine Kinase 135 units/L (55-170) 01/09/17 10:16 CK-MB (CK-2) 7.1 ng/mL (0.0-4.0) H 01/09/17 10:16 CK-MB (CK-2) Rel Index 5.2 (0-4) H 01/09/17 10:16 Troponin T < 0.010 ng/mL (0.00-0.029) 01/09/17 10:16 NT-Pro-B Natriuret Pep 602.9 pg/mL (0-900) 01/09/17 10:16 Total Protein 7.9 g/dL (6.3-8.2) 01/22/17 04:00 Albumin 2.7 g/dL (3.9-5) L 01/22/17 04:00 Albumin/Globulin Ratio 0.5 % 01/22/17 04:00 TSH 52.800 mlU/mL (0.270-4.200) H 01/09/17 10:16 Free T4 0.78 ng/dL (0.76-1.46) 01/09/17 10:16 Total Cortisol 54.8 mcg/dL () 01/09/17 16:19 Urine Color Yellow (Yellow) 01/28/17 17:52 Urine Turbidity Clear (Clear) 01/28/17 17:52 Urine pH 6.0 (5.0-7.0) 01/28/17 17:52 Ur Specific [place] 1.016 (1.003-1.030) 01/28/17 17:52 Urine Protein 100 mg/dl mg/dL (Negative) 01/28/17 17:52 Urine Glucose (UA) >=500 mg/dL (Negative) 01/28/17 17:52 Urine Ketones Neg mg/dL (Negative) 01/28/17 17:52 Urine Blood Sm (Negative) 01/28/17 17:52 Urine Nitrite Neg (Negative) 01/28/17 17:52 Urine Bilirubin Neg (Negative) 01/28/17 17:52 Urine Urobilinogen < 2.0 mg/dL (<2.0) 01/28/17 17:52 Ur Leukocyte Esterase Lg (Negative) 01/28/17 17:52 Urine WBC (Auto) > 182.0 /HPF (0.0-6.0) H 01/28/17 17:52 Urine RBC (Auto) 113.0 /HPF (0.0-6.0) 01/28/17 17:52 Urine Bacteria (Auto) 2+ /HPF (Negative) 01/28/17 17:52 Urine WBC Clumps 3+ /HPF 01/28/17 17:52 Urine Mucus Few /HPF 01/14/17 14:07 Urine Yeast (Budding) 3+ /HPF 01/14/17 14:07 Salicylates < 0.3 mg/dL (2.8-20.0) L 01/09/17 10:16 Urine Opiates Screen Presumptive negative 01/09/17 10:23 Urine Methadone Screen Presumptive negative 01/09/17 10:23 Acetaminophen < 15.0 ug/mL (10.0-30.0) 01/09/17 10:16 Ur Barbiturates Screen Presumptive negative 01/09/17 10:23 Ur Phencyclidine Scrn Presumptive negative 01/09/17 10:23 Ur Amphetamines Screen Presumptive negative 01/09/17 10:23 U Benzodiazepines Scrn Presumptive negative 01/09/17 10:23 Urine Cocaine Screen Presumptive negative 01/09/17 10:23 U Marijuana (THC) Screen Presumptive negative 01/09/17 10:23 Drugs of Abuse Note Disclamer 01/09/17 10:23 Plasma/Serum Alcohol < 0.01 gm% (0-0.07) 01/09/17 10:16
[2017-03-08] MEDS: PEPCID PO SCH ×2 (09:55→22:10)
[2017-03-08] MEDS: LEVEMIR (NF) SUB-Q SCH (09:55)
[2017-03-08] MEDS: HEPARIN SUB-Q SCH ×2 (09:55→22:10)
--- NOTE | 2017-03-08 13:29 | Progress Note ---
Assessment and Plan Imp: 1. Hypoglycemia/hypothermia -> suspect due to too much insulin 2. Hypothyroidism; doubt myxedema coma with normal free T4 3. Acute respiratory failure, hypoxia 4. UTI/SIRS 5. Metabolic encephalopathy Rec: 1. GI/DVT PPx/TFs 2. Reviewed chart; ethics note 01/18/17 recommended AND and "hospice"; trying to get guardianship to sign necessary orders for this (however, I was told they are not willing to sign for withdrawal of ventilator); further care felt to be futile and would only prolong potential suffering without affecting ultimate outcome 3. Comfort care, no escalation of care; would not check any further labs, etc. 4. Poor prognosis Unable to locate family. Subjective Date of service: 03/08/17 Principal diagnosis: Acute respiratory failure,encephalopathy Interval history: No events. On vent. Unresponsive. Active Medications Acetaminophen (Tylenol) 650 mg FEEDTUBE Q6H PRN PRN Reason: Non Cardiac Pain Or Temp>101 Last Admin: 02/27/17 19:34 Dose: 650 mg Lipase/Protease/Amylase (Pancreaze Dr 10,500 Unit) 1 each FEEDTUBE PRN PRN PRN Reason: For Clogged Feeding Tube Dextrose (D50w (25gm) Vial) 50 gm IV PRN PRN PRN Reason: Hypoglycemia Last Admin: 02/17/17 00:10 Dose: 50 gm Famotidine (Pepcid) 20 mg PO BID [facility] Last Admin: 03/08/17 09:55 Dose: 20 mg Heparin Sodium (Porcine) (Heparin) 5,000 unit SUB-Q Q12HR [facility] Last Admin: 03/08/17 09:55 Dose: 5,000 unit Hydralazine HCl (Apresoline) 10 mg IV Q4HR PRN PRN Reason: Hypertension Last Admin: 02/02/17 06:14 Dose: 10 mg Hydrophilic Ointment (Vaseline Lip Therapy) 1 applic TP Q2HR PRN PRN Reason: Dry Lips Insulin Detemir (Levemir) 15 units SUB-Q DAILY [facility] Last Admin: 03/08/17 09:55 Dose: 15 units Insulin Human Regular (Novolin R) 0 units SUB-Q Q6HR PAOLO PRN Reason: Protocol Last Admin: 03/08/17 06:29 Dose: Not Given Levothyroxine Sodium (Synthroid) 100 mcg PO DAILY@0600 [facility] Last Admin: 03/08/17 06:32 Dose: 100 mcg Loperamide HCl (Imodium) 2 mg PO Q2H PRN PRN Reason: Diarrhea Last Admin: 03/04/17 12:35 Dose: 2 mg Multi-Ingred Cream/Lotion/Oil/Oint (Artificial Tears Ophth Oint) 1 applic OU Q4HR PRN PRN Reason: Dry Eye(s) Simple Syrup (Simple Syrup) 15 ml FEEDTUBE PRN PRN PRN Reason: Hypoglycemia Last Admin: 02/28/17 18:56 Dose: 15 ml Simple Syrup (Simple Syrup) 30 ml FEEDTUBE PRN PRN PRN Reason: Hypoglycemia Sodium Bicarbonate (Sodium Bicarbonate) 325 mg FEEDTUBE PRN PRN PRN Reason: For Clogged Feeding Tube Objective Vital Signs - 12hr 03/08/17 03/08/17 03/08/17 02:00 03:51 04:00 Temperature 98.3 F Pulse Rate 72 76 Pulse Rate [ From Monitor] Respiratory 17 16 Rate Blood Pressure 126/79 124/78 O2 Sat by Pulse 100 100 Oximetry 03/08/17 03/08/17 03/08/17 04:48 06:00 08:00 Temperature 98.7 F Pulse Rate 73 74 70 Pulse Rate [ From Monitor] Respiratory 16 14 Rate Blood Pressure 124/78 123/79 129/86 O2 Sat by Pulse 100 100 100 Oximetry 03/08/17 03/08/17 03/08/17 08:02 08:53 09:16 Temperature Pulse Rate 74 79 Pulse Rate [ 74 From Monitor] Respiratory 14 Rate Blood Pressure 129/86 129/86 O2 Sat by Pulse 100 100 100 Oximetry 03/08/17 12:00 Temperature Pulse Rate 73 Pulse Rate [ From Monitor] Respiratory Rate Blood Pressure 125/83 O2 Sat by Pulse 100 Oximetry Constitutional: no acute distress, alert, other (orally intubated, on vent support) Eyes: non-icteric ENT: oropharynx moist Neck: supple Effort: normal Ascultation: Bilateral: clear Cardiovascular: regular rate and rhythm Gastrointestinal: normoactive bowel sounds, soft, non-tender, non-distended Integumentary: normal Extremities: no cyanosis, no edema, pink and warm Neurologic: other (awake spontaneously, not not following any commands. Fixed stare.) Psychiatric: other (unable to obtain) CBC and BMP: 11/01/17 07:24 02/09/17 07:24 ABG, PT/INR, D-dimer: ABG POC ABG pH 7.442 (7.35-7.45) 01/31/17 18:55 ABG pH 7.420 pH Units (7.350-7.450) 01/17/17 04:35 POC ABG pCO2 32.8 (35-45) L 01/31/17 18:55 ABG pCO2 34.5 mm Hg 01/17/17 04:35 POC ABG pO2 82 (80-105) 01/31/17 18:55 ABG pO2 160.3 mm Hg (80.0-90.0) H 01/17/17 04:35 POC ABG HCO3 22.4 01/31/17 18:55 POC ABG Total CO2 23 01/31/17 18:55 POC ABG O2 Sat 97 01/31/17 18:55 ABG O2 Saturation 99.0 % (95.0-99.0) 01/17/17 04:35 PT/INR, D-dimer PT 14.1 Sec. (12.2-14.9) 01/17/17 04:10 INR 1.04 (0.87-1.13) 01/17/17 04:10 Abnormal lab findings: Abnormal Labs 01/09/17 01/09/17 01/09/17 10:16 10:16 10:16 WBC RBC Hgb 9.7 L Hct 28.4 L MCV 76 L MCH 26 L RDW 17.2 H Plt Count 448 H Lymph % (Auto) Martin % (Auto) Eos % (Auto) Seg Neutrophils % 79.5 H Seg Neuts % (Manual) Lymphocytes % (Manual) Seg Neutrophils # Seg Neutrophils # Man Lymphocytes # (Manual) APTT 39.6 H POC ABG pH ABG pH POC ABG pCO2 POC ABG pO2 ABG pO2 ABG HCO3 ABG Base Excess ABG Hemoglobin VBG pH Oxyhemoglobin Sodium 132 L Potassium Chloride 96.7 L Carbon Dioxide 21 L BUN 34 H Creatinine Glucose POC Glucose Lactic Acid Calcium 8.3 L AST Alkaline Phosphatase 151 H CK-MB (CK-2) 7.1 H CK-MB (CK-2) Rel Index 5.2 H Albumin 3.3 L TSH Urine WBC (Auto) Salicylates 01/09/17 01/09/17 01/09/17 10:16 10:16 10:16 WBC RBC Hgb Hct MCV MCH RDW Plt Count Lymph % (Auto) Martin % (Auto) Eos % (Auto) Seg Neutrophils % Seg Neuts % (Manual) Lymphocytes % (Manual) Seg Neutrophils # Seg Neutrophils # Man Lymphocytes # (Manual) APTT POC ABG pH ABG pH POC ABG pCO2 POC ABG pO2 ABG pO2 ABG HCO3 ABG Base Excess ABG Hemoglobin VBG pH 7.284 L Oxyhemoglobin Sodium Potassium Chloride Carbon Dioxide BUN Creatinine Glucose POC Glucose Lactic Acid Calcium AST Alkaline Phosphatase CK-MB (CK-2) CK-MB (CK-2) Rel Index Albumin TSH 52.800 H Urine WBC (Auto) Salicylates < 0.3 L 01/09/17 01/09/17 01/09/17 10:23 11:14 12:49 WBC RBC Hgb Hct MCV MCH RDW Plt Count Lymph % (Auto) Martin % (Auto) Eos % (Auto) Seg Neutrophils % Seg Neuts % (Manual) Lymphocytes % (Manual) Seg Neutrophils # Seg Neutrophils # Man Lymphocytes # (Manual) APTT POC ABG pH ABG pH POC ABG pCO2 POC ABG pO2 643 H ABG pO2 ABG HCO3 ABG Base Excess ABG Hemoglobin VBG pH Oxyhemoglobin Sodium Potassium Chloride Carbon Dioxide BUN Creatinine Glucose POC Glucose < 40 L Lactic Acid Calcium AST Alkaline Phosphatase CK-MB (CK-2) CK-MB (CK-2) Rel Index Albumin TSH Urine WBC (Auto) 61.0 H Salicylates 01/09/17 01/09/17 01/09/17 13:13 14:21 15:09 WBC RBC Hgb Hct MCV MCH RDW Plt Count Lymph % (Auto) Martin % (Auto) Eos % (Auto) Seg Neutrophils % Seg Neuts % (Manual) Lymphocytes % (Manual) Seg Neutrophils # Seg Neutrophils # Man Lymphocytes # (Manual) APTT POC ABG pH ABG pH POC ABG pCO2 POC ABG pO2 ABG pO2 ABG HCO3 ABG Base Excess ABG Hemoglobin VBG pH Oxyhemoglobin Sodium Potassium Chloride Carbon Dioxide BUN Creatinine Glucose POC Glucose 128 H 65 L 120 H Lactic Acid Calcium AST Alkaline Phosphatase CK-MB (CK-2) CK-MB (CK-2) Rel Index Albumin TSH Urine WBC (Auto) Salicylates 01/09/17 01/09/17 01/10/17 16:28 17:14 04:30 WBC 24.1 H RBC 3.38 L Hgb 8.5 L Hct 26.0 L MCV 77 L MCH 25 L RDW 17.9 H Plt Count 474 H Lymph % (Auto) Martin % (Auto) Eos % (Auto) Seg Neutrophils % Seg Neuts % (Manual) 88.0 H Lymphocytes % (Manual) 4.0 L Seg Neutrophils # Seg Neutrophils # Man 21.2 H Lymphocytes # (Manual) 1.0 L APTT POC ABG pH ABG pH POC ABG pCO2 POC ABG pO2 ABG pO2 ABG HCO3 ABG Base Excess ABG Hemoglobin VBG pH Oxyhemoglobin Sodium Potassium Chloride Carbon Dioxide BUN Creatinine Glucose POC Glucose 44 L 112 H Lactic Acid Calcium AST Alkaline Phosphatase CK-MB (CK-2) CK-MB (CK-2) Rel Index Albumin TSH Urine WBC (Auto) Salicylates 01/10/17 01/10/17 01/10/17 04:30 05:41 05:45 WBC RBC Hgb Hct MCV MCH RDW Plt Count Lymph % (Auto) Martin % (Auto) Eos % (Auto) Seg Neutrophils % Seg Neuts % (Manual) Lymphocytes % (Manual) Seg Neutrophils # Seg Neutrophils # Man Lymphocytes # (Manual) APTT POC ABG pH ABG pH POC ABG pCO2 26.6 L POC ABG pO2 207 H ABG pO2 ABG HCO3 ABG Base Excess ABG Hemoglobin VBG pH Oxyhemoglobin Sodium Potassium Chloride Carbon Dioxide 17 L BUN 27 H Creatinine Glucose POC Glucose 68 L Lactic Acid Calcium 7.5 L AST Alkaline Phosphatase CK-MB (CK-2) CK-MB (CK-2) Rel Index Albumin TSH Urine WBC (Auto) Salicylates 01/10/17 01/10/17 01/10/17 07:47 10:50 13:41 WBC RBC Hgb Hct MCV MCH RDW Plt Count Lymph % (Auto) Martin % (Auto) Eos % (Auto) Seg Neutrophils % Seg Neuts % (Manual) Lymphocytes % (Manual) Seg Neutrophils # Seg Neutrophils # Man Lymphocytes # (Manual) APTT POC ABG pH ABG pH POC ABG pCO2 POC ABG pO2 ABG pO2 ABG HCO3 ABG Base Excess ABG Hemoglobin VBG pH Oxyhemoglobin Sodium Potassium Chloride Carbon Dioxide BUN Creatinine Glucose POC Glucose 148 H 165 H 114 H Lactic Acid Calcium AST Alkaline Phosphatase CK-MB (CK-2) CK-MB (CK-2) Rel Index Albumin TSH Urine WBC (Auto) Salicylates 01/10/17 01/10/17 01/10/17 20:20 21:39 23:24 WBC RBC Hgb Hct MCV MCH RDW Plt Count Lymph % (Auto) Martin % (Auto) Eos % (Auto) Seg Neutrophils % Seg Neuts % (Manual) Lymphocytes % (Manual) Seg Neutrophils # Seg Neutrophils # Man Lymphocytes # (Manual) APTT POC ABG pH ABG pH POC ABG pCO2 POC ABG pO2 ABG pO2 ABG HCO3 ABG Base Excess ABG Hemoglobin VBG pH Oxyhemoglobin Sodium Potassium Chloride Carbon Dioxide BUN Creatinine Glucose POC Glucose 150 H 175 H 155 H Lactic Acid Calcium AST Alkaline Phosphatase CK-MB (CK-2) CK-MB (CK-2) Rel Index Albumin TSH Urine WBC (Auto) Salicylates 01/11/17 01/11/17 01/11/17 00:19 04:06 05:20 WBC 15.2 H RBC 3.40 L Hgb 8.9 L Hct 26.3 L MCV 78 L MCH 26 L RDW 18.6 H Plt Count 462 H Lymph % (Auto) 13.2 L Martin % (Auto) Eos % (Auto) Seg Neutrophils % 80.8 H Seg Neuts % (Manual) Lymphocytes % (Manual) Seg Neutrophils # 12.3 H Seg Neutrophils # Man Lymphocytes # (Manual) APTT POC ABG pH 7.463 H ABG pH POC ABG pCO2 26.2 L POC ABG pO2 185 H ABG pO2 ABG HCO3 ABG Base Excess ABG Hemoglobin VBG pH Oxyhemoglobin Sodium Potassium Chloride Carbon Dioxide BUN Creatinine Glucose POC Glucose 163 H Lactic Acid Calcium AST Alkaline Phosphatase CK-MB (CK-2) CK-MB (CK-2) Rel Index Albumin TSH Urine WBC (Auto) Salicylates 01/11/17 01/11/17 01/11/17 05:20 06:21 07:57 WBC RBC Hgb Hct MCV MCH RDW Plt Count Lymph % (Auto) Martin % (Auto) Eos % (Auto) Seg Neutrophils % Seg Neuts % (Manual) Lymphocytes % (Manual) Seg Neutrophils # Seg Neutrophils # Man Lymphocytes # (Manual) APTT POC ABG pH ABG pH POC ABG pCO2 POC ABG pO2 ABG pO2 ABG HCO3 ABG Base Excess ABG Hemoglobin VBG pH Oxyhemoglobin Sodium Potassium 3.4 L Chloride 111.5 H Carbon Dioxide 17 L BUN Creatinine Glucose 147 H POC Glucose 139 H 188 H Lactic Acid Calcium 8.0 L AST Alkaline Phosphatase CK-MB (CK-2) CK-MB (CK-2) Rel Index Albumin TSH Urine WBC (Auto) Salicylates 01/11/17 01/11/17 01/11/17 11:46 16:50 23:15 WBC RBC Hgb Hct MCV MCH RDW Plt Count Lymph % (Auto) Martin % (Auto) Eos % (Auto) Seg Neutrophils % Seg Neuts % (Manual) Lymphocytes % (Manual) Seg Neutrophils # Seg Neutrophils # Man Lymphocytes # (Manual) APTT POC ABG pH ABG pH POC ABG pCO2 POC ABG pO2 ABG pO2 ABG HCO3 ABG Base Excess ABG Hemoglobin VBG pH Oxyhemoglobin Sodium Potassium Chloride Carbon Dioxide BUN Creatinine Glucose POC Glucose 199 H 235 H 155 H Lactic Acid Calcium AST Alkaline Phosphatase CK-MB (CK-2) CK-MB (CK-2) Rel Index Albumin TSH Urine WBC (Auto) Salicylates 01/12/17 01/12/17 01/12/17 05:02 06:56 14:50 WBC RBC Hgb Hct MCV MCH RDW Plt Count Lymph % (Auto) Martin % (Auto) Eos % (Auto) Seg Neutrophils % Seg Neuts % (Manual) Lymphocytes % (Manual) Seg Neutrophils # Seg Neutrophils # Man Lymphocytes # (Manual) APTT POC ABG pH ABG pH POC ABG pCO2 28.0 L POC ABG pO2 178 H ABG pO2 ABG HCO3 ABG Base Excess ABG Hemoglobin VBG pH Oxyhemoglobin Sodium Potassium Chloride Carbon Dioxide BUN Creatinine Glucose POC Glucose 119 H 164 H Lactic Acid Calcium AST Alkaline Phosphatase CK-MB (CK-2) CK-MB (CK-2) Rel Index Albumin TSH Urine WBC (Auto) Salicylates 01/13/17 01/13/17 01/13/17 03:37 03:37 04:26 WBC RBC 3.61 L Hgb 9.3 L Hct 28.0 L MCV 78 L MCH 26 L RDW 18.2 H Plt Count Lymph % (Auto) Martin % (Auto) Eos % (Auto) Seg Neutrophils % Seg Neuts % (Manual) Lymphocytes % (Manual) Seg Neutrophils # Seg Neutrophils # Man Lymphocytes # (Manual) APTT POC ABG pH 7.485 H ABG pH POC ABG pCO2 25.4 L POC ABG pO2 73 L ABG pO2 ABG HCO3 ABG Base Excess ABG Hemoglobin VBG pH Oxyhemoglobin Sodium Potassium Chloride 112.4 H Carbon Dioxide 19 L BUN Creatinine Glucose 118 H POC Glucose Lactic Acid Calcium 8.0 L AST Alkaline Phosphatase CK-MB (CK-2) CK-MB (CK-2) Rel Index Albumin TSH Urine WBC (Auto) Salicylates 01/13/17 01/13/17 01/13/17 06:15 11:50 17:31 WBC RBC Hgb Hct MCV MCH RDW Plt Count Lymph % (Auto) Martin % (Auto) Eos % (Auto) Seg Neutrophils % Seg Neuts % (Manual) Lymphocytes % (Manual) Seg Neutrophils # Seg Neutrophils # Man Lymphocytes # (Manual) APTT POC ABG pH ABG pH POC ABG pCO2 POC ABG pO2 ABG pO2 ABG HCO3 ABG Base Excess ABG Hemoglobin VBG pH Oxyhemoglobin Sodium Potassium Chloride Carbon Dioxide BUN Creatinine Glucose POC Glucose 116 H 171 H 203 H Lactic Acid Calcium AST Alkaline Phosphatase CK-MB (CK-2) CK-MB (CK-2) Rel Index Albumin TSH Urine WBC (Auto) Salicylates 01/14/17 01/14/17 01/14/17 00:02 04:50 04:50 WBC RBC 3.32 L Hgb 8.5 L Hct 26.1 L MCV 79 L MCH 26 L RDW 18.2 H Plt Count Lymph % (Auto) Martin % (Auto) 9.0 H Eos % (Auto) Seg Neutrophils % Seg Neuts % (Manual) Lymphocytes % (Manual) Seg Neutrophils # Seg Neutrophils # Man Lymphocytes # (Manual) APTT POC ABG pH ABG pH POC ABG pCO2 POC ABG pO2 ABG pO2 ABG HCO3 ABG Base Excess ABG Hemoglobin VBG pH Oxyhemoglobin Sodium Potassium Chloride 112.5 H Carbon Dioxide BUN Creatinine Glucose 149 H POC Glucose 157 H Lactic Acid Calcium 8.1 L AST Alkaline Phosphatase CK-MB (CK-2) CK-MB (CK-2) Rel Index Albumin TSH Urine WBC (Auto) Salicylates 01/14/17 01/14/17 01/14/17 05:10 11:27 14:07 WBC RBC Hgb Hct MCV MCH RDW Plt Count Lymph % (Auto) Martin % (Auto) Eos % (Auto) Seg Neutrophils % Seg Neuts % (Manual) Lymphocytes % (Manual) Seg Neutrophils # Seg Neutrophils # Man Lymphocytes # (Manual) APTT POC ABG pH ABG pH POC ABG pCO2 POC ABG pO2 ABG pO2 ABG HCO3 ABG Base Excess ABG Hemoglobin VBG pH Oxyhemoglobin Sodium Potassium Chloride Carbon Dioxide BUN Creatinine Glucose POC Glucose 176 H 147 H Lactic Acid Calcium AST Alkaline Phosphatase CK-MB (CK-2) CK-MB (CK-2) Rel Index Albumin TSH Urine WBC (Auto) 53.0 H Salicylates 01/14/17 01/15/17 01/15/17 16:52 00:04 05:26 WBC RBC Hgb Hct MCV MCH RDW Plt Count Lymph % (Auto) Martin % (Auto) Eos % (Auto) Seg Neutrophils % Seg Neuts % (Manual) Lymphocytes % (Manual) Seg Neutrophils # Seg Neutrophils # Man Lymphocytes # (Manual) APTT POC ABG pH ABG pH POC ABG pCO2 POC ABG pO2 ABG pO2 ABG HCO3 ABG Base Excess ABG Hemoglobin VBG pH Oxyhemoglobin Sodium Potassium Chloride Carbon Dioxide BUN Creatinine Glucose POC Glucose 131 H 193 H 215 H Lactic Acid Calcium AST Alkaline Phosphatase CK-MB (CK-2) CK-MB (CK-2) Rel Index Albumin TSH Urine WBC (Auto) Salicylates 01/15/17 01/15/17 01/15/17 11:49 17:47 21:33 WBC RBC Hgb Hct MCV MCH RDW Plt Count Lymph % (Auto) Martin % (Auto) Eos % (Auto) Seg Neutrophils % Seg Neuts % (Manual) Lymphocytes % (Manual) Seg Neutrophils # Seg Neutrophils # Man Lymphocytes # (Manual) APTT POC ABG pH ABG pH POC ABG pCO2 POC ABG pO2 ABG pO2 ABG HCO3 ABG Base Excess ABG Hemoglobin VBG pH Oxyhemoglobin Sodium Potassium Chloride Carbon Dioxide BUN Creatinine Glucose POC Glucose 121 H 211 H 275 H Lactic Acid Calcium AST Alkaline Phosphatase CK-MB (CK-2) CK-MB (CK-2) Rel Index Albumin TSH Urine WBC (Auto) Salicylates 01/16/17 01/16/17 01/16/17 04:30 05:28 13:45 WBC RBC Hgb Hct MCV MCH RDW Plt Count Lymph % (Auto) Martin % (Auto) Eos % (Auto) Seg Neutrophils % Seg Neuts % (Manual) Lymphocytes % (Manual) Seg Neutrophils # Seg Neutrophils # Man Lymphocytes # (Manual) APTT POC ABG pH ABG pH 7.457 H POC ABG pCO2 POC ABG pO2 ABG pO2 55.1 L ABG HCO3 19.4 L ABG Base Excess -4.0 L ABG Hemoglobin 6.8 L VBG pH Oxyhemoglobin 94.9 L Sodium Potassium Chloride Carbon Dioxide BUN Creatinine Glucose POC Glucose 271 H 236 H Lactic Acid Calcium AST Alkaline Phosphatase CK-MB (CK-2) CK-MB (CK-2) Rel Index Albumin TSH Urine WBC (Auto) Salicylates 01/16/17 01/17/17 01/17/17 21:39 04:10 04:10 WBC 4.4 L RBC 2.98 L Hgb 7.7 L Hct 23.3 L MCV 78 L MCH 26 L RDW 18.1 H Plt Count Lymph % (Auto) Martin % (Auto) Eos % (Auto) Seg Neutrophils % Seg Neuts % (Manual) Lymphocytes % (Manual) Seg Neutrophils # Seg Neutrophils # Man Lymphocytes # (Manual) APTT POC ABG pH ABG pH POC ABG pCO2 POC ABG pO2 ABG pO2 ABG HCO3 ABG Base Excess ABG Hemoglobin VBG pH Oxyhemoglobin Sodium Potassium 3.3 L Chloride 108.7 H Carbon Dioxide 20 L BUN 8 L Creatinine Glucose 202 H POC Glucose 258 H Lactic Acid Calcium 7.6 L AST Alkaline Phosphatase CK-MB (CK-2) CK-MB (CK-2) Rel Index Albumin TSH Urine WBC (Auto) Salicylates 01/17/17 01/17/17 01/17/17 04:35 12:23 16:01 WBC RBC Hgb Hct MCV MCH RDW Plt Count Lymph % (Auto) Martin % (Auto) Eos % (Auto) Seg Neutrophils % Seg Neuts % (Manual) Lymphocytes % (Manual) Seg Neutrophils # Seg Neutrophils # Man Lymphocytes # (Manual) APTT POC ABG pH ABG pH POC ABG pCO2 POC ABG pO2 ABG pO2 160.3 H ABG HCO3 ABG Base Excess -2.3 L ABG Hemoglobin 7.9 L VBG pH Oxyhemoglobin Sodium Potassium Chloride Carbon Dioxide BUN Creatinine Glucose POC Glucose 321 H 239 H Lactic Acid Calcium AST Alkaline Phosphatase CK-MB (CK-2) CK-MB (CK-2) Rel Index Albumin TSH Urine WBC (Auto) Salicylates 01/18/17 01/18/17 01/18/17 05:07 12:09 17:54 WBC RBC Hgb Hct MCV MCH RDW Plt Count Lymph % (Auto) Martin % (Auto) Eos % (Auto) Seg Neutrophils % Seg Neuts % (Manual) Lymphocytes % (Manual) Seg Neutrophils # Seg Neutrophils # Man Lymphocytes # (Manual) APTT POC ABG pH ABG pH POC ABG pCO2 POC ABG pO2 ABG pO2 ABG HCO3 ABG Base Excess ABG Hemoglobin VBG pH Oxyhemoglobin Sodium Potassium Chloride Carbon Dioxide BUN Creatinine Glucose POC Glucose 155 H 203 H 132 H Lactic Acid Calcium AST Alkaline Phosphatase CK-MB (CK-2) CK-MB (CK-2) Rel Index Albumin TSH Urine WBC (Auto) Salicylates 01/18/17 01/19/17 01/19/17 23:43 04:28 12:11 WBC RBC Hgb Hct MCV MCH RDW Plt Count Lymph % (Auto) Martin % (Auto) Eos % (Auto) Seg Neutrophils % Seg Neuts % (Manual) Lymphocytes % (Manual) Seg Neutrophils # Seg Neutrophils # Man Lymphocytes # (Manual) APTT POC ABG pH ABG pH POC ABG pCO2 POC ABG pO2 ABG pO2 ABG HCO3 ABG Base Excess ABG Hemoglobin VBG pH Oxyhemoglobin Sodium Potassium Chloride Carbon Dioxide BUN Creatinine Glucose POC Glucose 125 H 182 H 153 H Lactic Acid Calcium AST Alkaline Phosphatase CK-MB (CK-2) CK-MB (CK-2) Rel Index Albumin TSH Urine WBC (Auto) Salicylates 01/19/17 01/20/17 01/20/17 17:23 00:12 05:44 WBC RBC Hgb Hct MCV MCH RDW Plt Count Lymph % (Auto) Martin % (Auto) Eos % (Auto) Seg Neutrophils % Seg Neuts % (Manual) Lymphocytes % (Manual) Seg Neutrophils # Seg Neutrophils # Man Lymphocytes # (Manual) APTT POC ABG pH ABG pH POC ABG pCO2 POC ABG pO2 ABG pO2 ABG HCO3 ABG Base Excess ABG Hemoglobin VBG pH Oxyhemoglobin Sodium Potassium Chloride Carbon Dioxide BUN Creatinine Glucose POC Glucose 66 L 139 H 176 H Lactic Acid Calcium AST Alkaline Phosphatase CK-MB (CK-2) CK-MB (CK-2) Rel Index Albumin TSH Urine WBC (Auto) Salicylates 01/20/17 01/20/17 01/20/17 11:48 17:42 23:43 WBC RBC Hgb Hct MCV MCH RDW Plt Count Lymph % (Auto) Martin % (Auto) Eos % (Auto) Seg Neutrophils % Seg Neuts % (Manual) Lymphocytes % (Manual) Seg Neutrophils # Seg Neutrophils # Man Lymphocytes # (Manual) APTT POC ABG pH ABG pH POC ABG pCO2 POC ABG pO2 ABG pO2 ABG HCO3 ABG Base Excess ABG Hemoglobin VBG pH Oxyhemoglobin Sodium Potassium Chloride Carbon Dioxide BUN Creatinine Glucose POC Glucose 218 H 132 H 178 H Lactic Acid Calcium AST Alkaline Phosphatase CK-MB (CK-2) CK-MB (CK-2) Rel Index Albumin TSH Urine WBC (Auto) Salicylates 01/21/17 01/21/17 01/21/17 05:34 11:17 23:37 WBC RBC Hgb Hct MCV MCH RDW Plt Count Lymph % (Auto) Martin % (Auto) Eos % (Auto) Seg Neutrophils % Seg Neuts % (Manual) Lymphocytes % (Manual) Seg Neutrophils # Seg Neutrophils # Man Lymphocytes # (Manual) APTT POC ABG pH ABG pH POC ABG pCO2 POC ABG pO2 ABG pO2 ABG HCO3 ABG Base Excess ABG Hemoglobin VBG pH Oxyhemoglobin Sodium Potassium Chloride Carbon Dioxide BUN Creatinine Glucose POC Glucose 106 H 213 H 140 H Lactic Acid Calcium AST Alkaline Phosphatase CK-MB (CK-2) CK-MB (CK-2) Rel Index Albumin TSH Urine WBC (Auto) Salicylates 01/22/17 01/22/17 01/22/17 04:00 04:00 04:58 WBC RBC 3.26 L Hgb 8.3 L Hct 25.5 L MCV 78 L MCH 25 L RDW 17.9 H Plt Count Lymph % (Auto) Martin % (Auto) 7.9 H Eos % (Auto) 6.2 H Seg Neutrophils % Seg Neuts % (Manual) Lymphocytes % (Manual) Seg Neutrophils # Seg Neutrophils # Man Lymphocytes # (Manual) APTT POC ABG pH ABG pH POC ABG pCO2 POC ABG pO2 ABG pO2 ABG HCO3 ABG Base Excess ABG Hemoglobin VBG pH Oxyhemoglobin Sodium Potassium Chloride 95.5 L Carbon Dioxide 31 H D BUN Creatinine Glucose 134 H POC Glucose 146 H Lactic Acid Calcium AST 44 H Alkaline Phosphatase 379 H CK-MB (CK-2) CK-MB (CK-2) Rel Index Albumin 2.7 L TSH Urine WBC (Auto) Salicylates 01/22/17 01/22/17 01/22/17 12:12 18:12 23:39 WBC RBC Hgb Hct MCV MCH RDW Plt Count Lymph % (Auto) Martin % (Auto) Eos % (Auto) Seg Neutrophils % Seg Neuts % (Manual) Lymphocytes % (Manual) Seg Neutrophils # Seg Neutrophils # Man Lymphocytes # (Manual) APTT POC ABG pH ABG pH POC ABG pCO2 POC ABG pO2 ABG pO2 ABG HCO3 ABG Base Excess ABG Hemoglobin VBG pH Oxyhemoglobin Sodium Potassium Chloride Carbon Dioxide BUN Creatinine Glucose POC Glucose 255 H 182 H 134 H Lactic Acid Calcium AST Alkaline Phosphatase CK-MB (CK-2) CK-MB (CK-2) Rel Index Albumin TSH Urine WBC (Auto) Salicylates 01/23/17 01/23/17 01/23/17 04:43 12:12 17:36 WBC RBC Hgb Hct MCV MCH RDW Plt Count Lymph % (Auto) Martin % (Auto) Eos % (Auto) Seg Neutrophils % Seg Neuts % (Manual) Lymphocytes % (Manual) Seg Neutrophils # Seg Neutrophils # Man Lymphocytes # (Manual) APTT POC ABG pH ABG pH POC ABG pCO2 POC ABG pO2 ABG pO2 ABG HCO3 ABG Base Excess ABG Hemoglobin VBG pH Oxyhemoglobin Sodium Potassium Chloride Carbon Dioxide BUN Creatinine Glucose POC Glucose 218 H 128 H 156 H Lactic Acid Calcium AST Alkaline Phosphatase CK-MB (CK-2) CK-MB (CK-2) Rel Index Albumin TSH Urine WBC (Auto) Salicylates 01/24/17 01/24/17 01/24/17 00:08 05:16 11:40 WBC RBC Hgb Hct MCV MCH RDW Plt Count Lymph % (Auto) Martin % (Auto) Eos % (Auto) Seg Neutrophils % Seg Neuts % (Manual) Lymphocytes % (Manual) Seg Neutrophils # Seg Neutrophils # Man Lymphocytes # (Manual) APTT POC ABG pH ABG pH POC ABG pCO2 POC ABG pO2 ABG pO2 ABG HCO3 ABG Base Excess ABG Hemoglobin VBG pH Oxyhemoglobin Sodium Potassium Chloride Carbon Dioxide BUN Creatinine Glucose POC Glucose 129 H 169 H 187 H Lactic Acid Calcium AST Alkaline Phosphatase CK-MB (CK-2) CK-MB (CK-2) Rel Index Albumin TSH Urine WBC (Auto) Salicylates 01/24/17 01/24/17 01/25/17 17:43 23:23 04:56 WBC RBC Hgb Hct MCV MCH RDW Plt Count Lymph % (Auto) Martin % (Auto) Eos % (Auto) Seg Neutrophils % Seg Neuts % (Manual) Lymphocytes % (Manual) Seg Neutrophils # Seg Neutrophils # Man Lymphocytes # (Manual) APTT POC ABG pH ABG pH POC ABG pCO2 POC ABG pO2 ABG pO2 ABG HCO3 ABG Base Excess ABG Hemoglobin VBG pH Oxyhemoglobin Sodium Potassium Chloride Carbon Dioxide BUN Creatinine Glucose POC Glucose 215 H 222 H 210 H Lactic Acid Calcium AST Alkaline Phosphatase CK-MB (CK-2) CK-MB (CK-2) Rel Index Albumin TSH Urine WBC (Auto) Salicylates 01/25/17 01/25/17 01/26/17 11:52 17:37 00:02 WBC RBC Hgb Hct MCV MCH RDW Plt Count Lymph % (Auto) Martin % (Auto) Eos % (Auto) Seg Neutrophils % Seg Neuts % (Manual) Lymphocytes % (Manual) Seg Neutrophils # Seg Neutrophils # Man Lymphocytes # (Manual) APTT POC ABG pH ABG pH POC ABG pCO2 POC ABG pO2 ABG pO2 ABG HCO3 ABG Base Excess ABG Hemoglobin VBG pH Oxyhemoglobin Sodium Potassium Chloride Carbon Dioxide BUN Creatinine Glucose POC Glucose 284 H 218 H 192 H Lactic Acid Calcium AST Alkaline Phosphatase CK-MB (CK-2) CK-MB (CK-2) Rel Index Albumin TSH Urine WBC (Auto) Salicylates 01/26/17 01/26/17 01/26/17 05:33 12:17 17:50 WBC RBC Hgb Hct MCV MCH RDW Plt Count Lymph % (Auto) Martin % (Auto) Eos % (Auto) Seg Neutrophils % Seg Neuts % (Manual) Lymphocytes % (Manual) Seg Neutrophils # Seg Neutrophils # Man Lymphocytes # (Manual) APTT POC ABG pH ABG pH POC ABG pCO2 POC ABG pO2 ABG pO2 ABG HCO3 ABG Base Excess ABG Hemoglobin VBG pH Oxyhemoglobin Sodium Potassium Chloride Carbon Dioxide BUN Creatinine Glucose POC Glucose 199 H 227 H 229 H Lactic Acid Calcium AST Alkaline Phosphatase CK-MB (CK-2) CK-MB (CK-2) Rel Index Albumin TSH Urine WBC (Auto) Salicylates 01/26/17 01/27/17 01/27/17 23:57 05:31 11:42 WBC RBC Hgb Hct MCV MCH RDW Plt Count Lymph % (Auto) Martin % (Auto) Eos % (Auto) Seg Neutrophils % Seg Neuts % (Manual) Lymphocytes % (Manual) Seg Neutrophils # Seg Neutrophils # Man Lymphocytes # (Manual) APTT POC ABG pH ABG pH POC ABG pCO2 POC ABG pO2 ABG pO2 ABG HCO3 ABG Base Excess ABG Hemoglobin VBG pH Oxyhemoglobin Sodium Potassium Chloride Carbon Dioxide BUN Creatinine Glucose POC Glucose 186 H 285 H 260 H Lactic Acid Calcium AST Alkaline Phosphatase CK-MB (CK-2) CK-MB (CK-2) Rel Index Albumin TSH Urine WBC (Auto) Salicylates 01/27/17 01/27/17 01/27/17 17:47 23:58 Unknown WBC 12.1 H RBC 3.28 L Hgb 8.5 L Hct 25.5 L MCV 78 L MCH 26 L RDW 16.8 H Plt Count 601 H Lymph % (Auto) Martin % (Auto) Eos % (Auto) Seg Neutrophils % Seg Neuts % (Manual) Lymphocytes % (Manual) Seg Neutrophils # Seg Neutrophils # Man Lymphocytes # (Manual) APTT POC ABG pH ABG pH POC ABG pCO2 POC ABG pO2 ABG pO2 ABG HCO3 ABG Base Excess ABG Hemoglobin VBG pH Oxyhemoglobin Sodium Potassium Chloride Carbon Dioxide BUN Creatinine Glucose POC Glucose 329 H 225 H Lactic Acid Calcium AST Alkaline Phosphatase CK-MB (CK-2) CK-MB (CK-2) Rel Index Albumin TSH Urine WBC (Auto) Salicylates 01/27/17 01/28/17 01/28/17 Unknown 03:44 03:44 WBC RBC 3.14 L Hgb 8.2 L Hct 24.1 L MCV 77 L MCH 26 L RDW 16.9 H Plt Count 567 H Lymph % (Auto) Martin % (Auto) Eos % (Auto) Seg Neutrophils % Seg Neuts % (Manual) Lymphocytes % (Manual) Seg Neutrophils # Seg Neutrophils # Man Lymphocytes # (Manual) APTT POC ABG pH ABG pH POC ABG pCO2 POC ABG pO2 ABG pO2 ABG HCO3 ABG Base Excess ABG Hemoglobin VBG pH Oxyhemoglobin Sodium 128 L Potassium 5.4 H Chloride 87.5 L Carbon Dioxide BUN 44 H 42 H Creatinine Glucose 250 H 128 H POC Glucose Lactic Acid Calcium AST Alkaline Phosphatase CK-MB (CK-2) CK-MB (CK-2) Rel Index Albumin TSH Urine WBC (Auto) Salicylates 01/28/17 01/28/17 01/28/17 11:43 16:47 17:52 WBC RBC Hgb Hct MCV MCH RDW Plt Count Lymph % (Auto) Martin % (Auto) Eos % (Auto) Seg Neutrophils % Seg Neuts % (Manual) Lymphocytes % (Manual) Seg Neutrophils # Seg Neutrophils # Man Lymphocytes # (Manual) APTT POC ABG pH ABG pH POC ABG pCO2 POC ABG pO2 ABG pO2 ABG HCO3 ABG Base Excess ABG Hemoglobin VBG pH Oxyhemoglobin Sodium Potassium Chloride Carbon Dioxide BUN Creatinine Glucose POC Glucose 351 H 249 H Lactic Acid Calcium AST Alkaline Phosphatase CK-MB (CK-2) CK-MB (CK-2) Rel Index Albumin TSH Urine WBC (Auto) > 182.0 H Salicylates 01/29/17 01/29/17 01/29/17 05:25 05:25 09:32 WBC 13.6 H RBC 3.25 L Hgb 8.3 L Hct 25.1 L MCV 77 L MCH 26 L RDW 16.8 H Plt Count 514 H Lymph % (Auto) Martin % (Auto) Eos % (Auto) Seg Neutrophils % Seg Neuts % (Manual) Lymphocytes % (Manual) Seg Neutrophils # Seg Neutrophils # Man Lymphocytes # (Manual) APTT POC ABG pH ABG pH POC ABG pCO2 POC ABG pO2 ABG pO2 ABG HCO3 ABG Base Excess ABG Hemoglobin VBG pH Oxyhemoglobin Sodium Potassium Chloride 97.8 L Carbon Dioxide BUN 34 H Creatinine Glucose 222 H POC Glucose Lactic Acid 2.50 H* Calcium AST Alkaline Phosphatase CK-MB (CK-2) CK-MB (CK-2) Rel Index Albumin TSH Urine WBC (Auto) Salicylates 01/29/17 01/29/17 01/29/17 11:56 18:11 23:55 WBC RBC Hgb Hct MCV MCH RDW Plt Count Lymph % (Auto) Martin % (Auto) Eos % (Auto) Seg Neutrophils % Seg Neuts % (Manual) Lymphocytes % (Manual) Seg Neutrophils # Seg Neutrophils # Man Lymphocytes # (Manual) APTT POC ABG pH ABG pH POC ABG pCO2 POC ABG pO2 ABG pO2 ABG HCO3 ABG Base Excess ABG Hemoglobin VBG pH Oxyhemoglobin Sodium Potassium Chloride Carbon Dioxide BUN Creatinine Glucose POC Glucose 261 H 215 H 176 H Lactic Acid Calcium AST Alkaline Phosphatase CK-MB (CK-2) CK-MB (CK-2) Rel Index Albumin TSH Urine WBC (Auto) Salicylates 01/30/17 01/30/17 01/30/17 05:31 05:31 05:34 WBC 15.2 H RBC 3.09 L Hgb 7.9 L Hct 23.9 L MCV 77 L MCH 26 L RDW 16.9 H Plt Count 569 H Lymph % (Auto) Martin % (Auto) Eos % (Auto) Seg Neutrophils % Seg Neuts % (Manual) Lymphocytes % (Manual) Seg Neutrophils # Seg Neutrophils # Man Lymphocytes # (Manual) APTT POC ABG pH ABG pH POC ABG pCO2 POC ABG pO2 ABG pO2 ABG HCO3 ABG Base Excess ABG Hemoglobin VBG pH Oxyhemoglobin Sodium Potassium Chloride Carbon Dioxide BUN 24 H Creatinine Glucose 235 H POC Glucose 243 H Lactic Acid Calcium AST Alkaline Phosphatase CK-MB (CK-2) CK-MB (CK-2) Rel Index Albumin TSH Urine WBC (Auto) Salicylates 01/30/17 01/30/17 01/30/17 11:38 17:58 23:29 WBC RBC Hgb Hct MCV MCH RDW Plt Count Lymph % (Auto) Martin % (Auto) Eos % (Auto) Seg Neutrophils % Seg Neuts % (Manual) Lymphocytes % (Manual) Seg Neutrophils # Seg Neutrophils # Man Lymphocytes # (Manual) APTT POC ABG pH ABG pH POC ABG pCO2 POC ABG pO2 ABG pO2 ABG HCO3 ABG Base Excess ABG Hemoglobin VBG pH Oxyhemoglobin Sodium Potassium Chloride Carbon Dioxide BUN Creatinine Glucose POC Glucose 298 H 208 H 245 H Lactic Acid Calcium AST Alkaline Phosphatase CK-MB (CK-2) CK-MB (CK-2) Rel Index Albumin TSH Urine WBC (Auto) Salicylates 01/31/17 01/31/17 01/31/17 04:39 04:39 05:57 WBC 11.4 H RBC 3.22 L Hgb 8.2 L Hct 24.9 L MCV 78 L MCH 25 L RDW 17.2 H Plt Count 576 H Lymph % (Auto) Martin % (Auto) Eos % (Auto) Seg Neutrophils % Seg Neuts % (Manual) Lymphocytes % (Manual) Seg Neutrophils # Seg Neutrophils # Man Lymphocytes # (Manual) APTT POC ABG pH ABG pH POC ABG pCO2 POC ABG pO2 ABG pO2 ABG HCO3 ABG Base Excess ABG Hemoglobin VBG pH Oxyhemoglobin Sodium Potassium Chloride Carbon Dioxide BUN Creatinine 0.7 L Glucose 223 H POC Glucose 264 H Lactic Acid Calcium AST Alkaline Phosphatase CK-MB (CK-2) CK-MB (CK-2) Rel Index Albumin TSH Urine WBC (Auto) Salicylates 01/31/17 01/31/17 01/31/17 12:23 17:41 18:55 WBC RBC Hgb Hct MCV MCH RDW Plt Count Lymph % (Auto) Martin % (Auto) Eos % (Auto) Seg Neutrophils % Seg Neuts % (Manual) Lymphocytes % (Manual) Seg Neutrophils # Seg Neutrophils # Man Lymphocytes # (Manual) APTT POC ABG pH ABG pH POC ABG pCO2 32.8 L POC ABG pO2 ABG pO2 ABG HCO3 ABG Base Excess ABG Hemoglobin VBG pH Oxyhemoglobin Sodium Potassium Chloride Carbon Dioxide BUN Creatinine Glucose POC Glucose 252 H 208 H Lactic Acid Calcium AST Alkaline Phosphatase CK-MB (CK-2) CK-MB (CK-2) Rel Index Albumin TSH Urine WBC (Auto) Salicylates 01/31/17 02/01/17 02/01/17 22:59 03:38 03:38 WBC RBC 2.81 L Hgb 7.4 L Hct 22.1 L MCV 79 L MCH 27 L RDW 17.0 H Plt Count 540 H Lymph % (Auto) Martin % (Auto) Eos % (Auto) Seg Neutrophils % Seg Neuts % (Manual) Lymphocytes % (Manual) Seg Neutrophils # Seg Neutrophils # Man Lymphocytes # (Manual) APTT POC ABG pH ABG pH POC ABG pCO2 POC ABG pO2 ABG pO2 ABG HCO3 ABG Base Excess ABG Hemoglobin VBG pH Oxyhemoglobin Sodium Potassium Chloride Carbon Dioxide 21 L BUN Creatinine 0.7 L Glucose POC Glucose 40 L Lactic Acid Calcium AST Alkaline Phosphatase CK-MB (CK-2) CK-MB (CK-2) Rel Index Albumin TSH Urine WBC (Auto) Salicylates 02/01/17 02/01/17 02/01/17 05:17 12:19 16:44 WBC RBC Hgb Hct MCV MCH RDW Plt Count Lymph % (Auto) Martin % (Auto) Eos % (Auto) Seg Neutrophils % Seg Neuts % (Manual) Lymphocytes % (Manual) Seg Neutrophils # Seg Neutrophils # Man Lymphocytes # (Manual) APTT POC ABG pH ABG pH POC ABG pCO2 POC ABG pO2 ABG pO2 ABG HCO3 ABG Base Excess ABG Hemoglobin VBG pH Oxyhemoglobin Sodium Potassium Chloride Carbon Dioxide BUN Creatinine Glucose POC Glucose 140 H 213 H 172 H Lactic Acid Calcium AST Alkaline Phosphatase CK-MB (CK-2) CK-MB (CK-2) Rel Index Albumin TSH Urine WBC (Auto) Salicylates 02/01/17 02/02/17 02/02/17 23:59 05:14 11:24 WBC RBC Hgb Hct MCV MCH RDW Plt Count Lymph % (Auto) Martin % (Auto) Eos % (Auto) Seg Neutrophils % Seg Neuts % (Manual) Lymphocytes % (Manual) Seg Neutrophils # Seg Neutrophils # Man Lymphocytes # (Manual) APTT POC ABG pH ABG pH POC ABG pCO2 POC ABG pO2 ABG pO2 ABG HCO3 ABG Base Excess ABG Hemoglobin VBG pH Oxyhemoglobin Sodium Potassium Chloride Carbon Dioxide BUN Creatinine Glucose POC Glucose 181 H 194 H 209 H Lactic Acid Calcium AST Alkaline Phosphatase CK-MB (CK-2) CK-MB (CK-2) Rel Index Albumin TSH Urine WBC (Auto) Salicylates 02/02/17 02/02/17 02/02/17 11:46 11:46 17:47 WBC RBC 2.94 L Hgb 7.5 L Hct 23.0 L MCV 78 L MCH 25 L RDW 16.9 H Plt Count 520 H Lymph % (Auto) Martin % (Auto) Eos % (Auto) Seg Neutrophils % Seg Neuts % (Manual) Lymphocytes % (Manual) Seg Neutrophils # Seg Neutrophils # Man Lymphocytes # (Manual) APTT POC ABG pH ABG pH POC ABG pCO2 POC ABG pO2 ABG pO2 ABG HCO3 ABG Base Excess ABG Hemoglobin VBG pH Oxyhemoglobin Sodium Potassium Chloride Carbon Dioxide BUN Creatinine 0.6 L Glucose 189 H POC Glucose 147 H Lactic Acid Calcium 8.1 L AST Alkaline Phosphatase CK-MB (CK-2) CK-MB (CK-2) Rel Index Albumin TSH Urine WBC (Auto) Salicylates 02/02/17 02/03/17 02/03/17 23:32 05:53 11:19 WBC RBC Hgb Hct MCV MCH RDW Plt Count Lymph % (Auto) Martin % (Auto) Eos % (Auto) Seg Neutrophils % Seg Neuts % (Manual) Lymphocytes % (Manual) Seg Neutrophils # Seg Neutrophils # Man Lymphocytes # (Manual) APTT POC ABG pH ABG pH POC ABG pCO2 POC ABG pO2 ABG pO2 ABG HCO3 ABG Base Excess ABG Hemoglobin VBG pH Oxyhemoglobin Sodium Potassium Chloride Carbon Dioxide BUN Creatinine Glucose POC Glucose 176 H 224 H 228 H Lactic Acid Calcium AST Alkaline Phosphatase CK-MB (CK-2) CK-MB (CK-2) Rel Index Albumin TSH Urine WBC (Auto) Salicylates 02/03/17 02/03/17 02/04/17 16:59 23:38 05:45 WBC RBC Hgb Hct MCV MCH RDW Plt Count Lymph % (Auto) Martin % (Auto) Eos % (Auto) Seg Neutrophils % Seg Neuts % (Manual) Lymphocytes % (Manual) Seg Neutrophils # Seg Neutrophils # Man Lymphocytes # (Manual) APTT POC ABG pH ABG pH POC ABG pCO2 POC ABG pO2 ABG pO2 ABG HCO3 ABG Base Excess ABG Hemoglobin VBG pH Oxyhemoglobin Sodium Potassium Chloride Carbon Dioxide BUN Creatinine Glucose POC Glucose 189 H 191 H 251 H Lactic Acid Calcium AST Alkaline Phosphatase CK-MB (CK-2) CK-MB (CK-2) Rel Index Albumin TSH Urine WBC (Auto) Salicylates 02/04/17 02/04/17 02/05/17 11:20 17:20 00:17 WBC RBC Hgb Hct MCV MCH RDW Plt Count Lymph % (Auto) Martin % (Auto) Eos % (Auto) Seg Neutrophils % Seg Neuts % (Manual) Lymphocytes % (Manual) Seg Neutrophils # Seg Neutrophils # Man Lymphocytes # (Manual) APTT POC ABG pH ABG pH POC ABG pCO2 POC ABG pO2 ABG pO2 ABG HCO3 ABG Base Excess ABG Hemoglobin VBG pH Oxyhemoglobin Sodium Potassium Chloride Carbon Dioxide BUN Creatinine Glucose POC Glucose 243 H 163 H 200 H Lactic Acid Calcium AST Alkaline Phosphatase CK-MB (CK-2) CK-MB (CK-2) Rel Index Albumin TSH Urine WBC (Auto) Salicylates 02/05/17 02/05/17 02/05/17 05:38 12:38 16:29 WBC RBC Hgb Hct MCV MCH RDW Plt Count Lymph % (Auto) Martin % (Auto) Eos % (Auto) Seg Neutrophils % Seg Neuts % (Manual) Lymphocytes % (Manual) Seg Neutrophils # Seg Neutrophils # Man Lymphocytes # (Manual) APTT POC ABG pH ABG pH POC ABG pCO2 POC ABG pO2 ABG pO2 ABG HCO3 ABG Base Excess ABG Hemoglobin VBG pH Oxyhemoglobin Sodium Potassium Chloride Carbon Dioxide BUN Creatinine Glucose POC Glucose 248 H 241 H 257 H Lactic Acid Calcium AST Alkaline Phosphatase CK-MB (CK-2) CK-MB (CK-2) Rel Index Albumin TSH Urine WBC (Auto) Salicylates 02/05/17 02/06/17 02/06/17 23:56 05:30 11:50 WBC RBC Hgb Hct MCV MCH RDW Plt Count Lymph % (Auto) Martin % (Auto) Eos % (Auto) Seg Neutrophils % Seg Neuts % (Manual) Lymphocytes % (Manual) Seg Neutrophils # Seg Neutrophils # Man Lymphocytes # (Manual) APTT POC ABG pH ABG pH POC ABG pCO2 POC ABG pO2 ABG pO2 ABG HCO3 ABG Base Excess ABG Hemoglobin VBG pH Oxyhemoglobin Sodium Potassium Chloride Carbon Dioxide BUN Creatinine Glucose POC Glucose 258 H 120 H 254 H Lactic Acid Calcium AST Alkaline Phosphatase CK-MB (CK-2) CK-MB (CK-2) Rel Index Albumin TSH Urine WBC (Auto) Salicylates 02/06/17 02/06/17 02/07/17 17:11 23:50 05:22 WBC RBC Hgb Hct MCV MCH RDW Plt Count Lymph % (Auto) Martin % (Auto) Eos % (Auto) Seg Neutrophils % Seg Neuts % (Manual) Lymphocytes % (Manual) Seg Neutrophils # Seg Neutrophils # Man Lymphocytes # (Manual) APTT POC ABG pH ABG pH POC ABG pCO2 POC ABG pO2 ABG pO2 ABG HCO3 ABG Base Excess ABG Hemoglobin VBG pH Oxyhemoglobin Sodium Potassium Chloride Carbon Dioxide BUN Creatinine Glucose POC Glucose 149 H 240 H 258 H Lactic Acid Calcium AST Alkaline Phosphatase CK-MB (CK-2) CK-MB (CK-2) Rel Index Albumin TSH Urine WBC (Auto) Salicylates 02/07/17 02/07/17 02/07/17 11:15 18:33 23:59 WBC RBC Hgb Hct MCV MCH RDW Plt Count Lymph % (Auto) Martin % (Auto) Eos % (Auto) Seg Neutrophils % Seg Neuts % (Manual) Lymphocytes % (Manual) Seg Neutrophils # Seg Neutrophils # Man Lymphocytes # (Manual) APTT POC ABG pH ABG pH POC ABG pCO2 POC ABG pO2 ABG pO2 ABG HCO3 ABG Base Excess ABG Hemoglobin VBG pH Oxyhemoglobin Sodium Potassium Chloride Carbon Dioxide BUN Creatinine Glucose POC Glucose 239 H 176 H 186 H Lactic Acid Calcium AST Alkaline Phosphatase CK-MB (CK-2) CK-MB (CK-2) Rel Index Albumin TSH Urine WBC (Auto) Salicylates 02/08/17 02/08/17 02/08/17 06:15 11:55 16:55 WBC RBC Hgb Hct MCV MCH RDW Plt Count Lymph % (Auto) Martin % (Auto) Eos % (Auto) Seg Neutrophils % Seg Neuts % (Manual) Lymphocytes % (Manual) Seg Neutrophils # Seg Neutrophils # Man Lymphocytes # (Manual) APTT POC ABG pH ABG pH POC ABG pCO2 POC ABG pO2 ABG pO2 ABG HCO3 ABG Base Excess ABG Hemoglobin VBG pH Oxyhemoglobin Sodium Potassium Chloride Carbon Dioxide BUN Creatinine Glucose POC Glucose 195 H 129 H 246 H Lactic Acid Calcium AST Alkaline Phosphatase CK-MB (CK-2) CK-MB (CK-2) Rel Index Albumin TSH Urine WBC (Auto) Salicylates 02/08/17 02/09/17 02/09/17 23:51 05:51 07:24 WBC 14.7 H RBC 3.39 L Hgb 8.9 L Hct 26.4 L MCV 78 L MCH 26 L RDW 18.4 H Plt Count 670 H Lymph % (Auto) 11.8 L Martin % (Auto) Eos % (Auto) Seg Neutrophils % 81.2 H Seg Neuts % (Manual) Lymphocytes % (Manual) Seg Neutrophils # 11.9 H Seg Neutrophils # Man Lymphocytes # (Manual) APTT POC ABG pH ABG pH POC ABG pCO2 POC ABG pO2 ABG pO2 ABG HCO3 ABG Base Excess ABG Hemoglobin VBG pH Oxyhemoglobin Sodium Potassium Chloride Carbon Dioxide BUN Creatinine Glucose POC Glucose 262 H 295 H Lactic Acid Calcium AST Alkaline Phosphatase CK-MB (CK-2) CK-MB (CK-2) Rel Index Albumin TSH Urine WBC (Auto) Salicylates 02/09/17 02/09/17 02/09/17 07:24 12:08 18:39 WBC RBC Hgb Hct MCV MCH RDW Plt Count Lymph % (Auto) Martin % (Auto) Eos % (Auto) Seg Neutrophils % Seg Neuts % (Manual) Lymphocytes % (Manual) Seg Neutrophils # Seg Neutrophils # Man Lymphocytes # (Manual) APTT POC ABG pH ABG pH POC ABG pCO2 POC ABG pO2 ABG pO2 ABG HCO3 ABG Base Excess ABG Hemoglobin VBG pH Oxyhemoglobin Sodium Potassium Chloride 95.5 L Carbon Dioxide BUN 52 H Creatinine Glucose 277 H POC Glucose 236 H 151 H Lactic Acid Calcium AST Alkaline Phosphatase CK-MB (CK-2) CK-MB (CK-2) Rel Index Albumin TSH Urine WBC (Auto) Salicylates 02/10/17 02/10/17 02/10/17 00:01 05:44 11:21 WBC RBC Hgb Hct MCV MCH RDW Plt Count Lymph % (Auto) Martin % (Auto) Eos % (Auto) Seg Neutrophils % Seg Neuts % (Manual) Lymphocytes % (Manual) Seg Neutrophils # Seg Neutrophils # Man Lymphocytes # (Manual) APTT POC ABG pH ABG pH POC ABG pCO2 POC ABG pO2 ABG pO2 ABG HCO3 ABG Base Excess ABG Hemoglobin VBG pH Oxyhemoglobin Sodium Potassium Chloride Carbon Dioxide BUN Creatinine Glucose POC Glucose 210 H 201 H 233 H Lactic Acid Calcium AST Alkaline Phosphatase CK-MB (CK-2) CK-MB (CK-2) Rel Index Albumin TSH Urine WBC (Auto) Salicylates 02/10/17 02/10/17 02/11/17 17:29 23:56 05:24 WBC RBC Hgb Hct MCV MCH RDW Plt Count Lymph % (Auto) Martin % (Auto) Eos % (Auto) Seg Neutrophils % Seg Neuts % (Manual) Lymphocytes % (Manual) Seg Neutrophils # Seg Neutrophils # Man Lymphocytes # (Manual) APTT POC ABG pH ABG pH POC ABG pCO2 POC ABG pO2 ABG pO2 ABG HCO3 ABG Base Excess ABG Hemoglobin VBG pH Oxyhemoglobin Sodium Potassium Chloride Carbon Dioxide BUN Creatinine Glucose POC Glucose 167 H 191 H 135 H Lactic Acid Calcium AST Alkaline Phosphatase CK-MB (CK-2) CK-MB (CK-2) Rel Index Albumin TSH Urine WBC (Auto) Salicylates 02/11/17 02/11/17 02/11/17 12:25 17:03 23:59 WBC RBC Hgb Hct MCV MCH RDW Plt Count Lymph % (Auto) Martin % (Auto) Eos % (Auto) Seg Neutrophils % Seg Neuts % (Manual) Lymphocytes % (Manual) Seg Neutrophils # Seg Neutrophils # Man Lymphocytes # (Manual) APTT POC ABG pH ABG pH POC ABG pCO2 POC ABG pO2 ABG pO2 ABG HCO3 ABG Base Excess ABG Hemoglobin VBG pH Oxyhemoglobin Sodium Potassium Chloride Carbon Dioxide BUN Creatinine Glucose POC Glucose 275 H 172 H 215 H Lactic Acid Calcium AST Alkaline Phosphatase CK-MB (CK-2) CK-MB (CK-2) Rel Index Albumin TSH Urine WBC (Auto) Salicylates 02/12/17 02/12/17 02/12/17 05:39 11:33 17:55 WBC RBC Hgb Hct MCV MCH RDW Plt Count Lymph % (Auto) Martin % (Auto) Eos % (Auto) Seg Neutrophils % Seg Neuts % (Manual) Lymphocytes % (Manual) Seg Neutrophils # Seg Neutrophils # Man Lymphocytes # (Manual) APTT POC ABG pH ABG pH POC ABG pCO2 POC ABG pO2 ABG pO2 ABG HCO3 ABG Base Excess ABG Hemoglobin VBG pH Oxyhemoglobin Sodium Potassium Chloride Carbon Dioxide BUN Creatinine Glucose POC Glucose 261 H 217 H 172 H Lactic Acid Calcium AST Alkaline Phosphatase CK-MB (CK-2) CK-MB (CK-2) Rel Index Albumin TSH Urine WBC (Auto) Salicylates 02/13/17 02/13/17 02/13/17 00:25 06:46 11:26 WBC RBC Hgb Hct MCV MCH RDW Plt Count Lymph % (Auto) Martin % (Auto) Eos % (Auto) Seg Neutrophils % Seg Neuts % (Manual) Lymphocytes % (Manual) Seg Neutrophils # Seg Neutrophils # Man Lymphocytes # (Manual) APTT POC ABG pH ABG pH POC ABG pCO2 POC ABG pO2 ABG pO2 ABG HCO3 ABG Base Excess ABG Hemoglobin VBG pH Oxyhemoglobin Sodium Potassium Chloride Carbon Dioxide BUN Creatinine Glucose POC Glucose 207 H 219 H 231 H Lactic Acid Calcium AST Alkaline Phosphatase CK-MB (CK-2) CK-MB (CK-2) Rel Index Albumin TSH Urine WBC (Auto) Salicylates 11/08/2502/13/17 02/14/17 17:12 23:44 05:44 WBC RBC Hgb Hct MCV MCH RDW Plt Count Lymph % (Auto) Martin % (Auto) Eos % (Auto) Seg Neutrophils % Seg Neuts % (Manual) Lymphocytes % (Manual) Seg Neutrophils # Seg Neutrophils # Man Lymphocytes # (Manual) APTT POC ABG pH ABG pH POC ABG pCO2 POC ABG pO2 ABG pO2 ABG HCO3 ABG Base Excess ABG Hemoglobin VBG pH Oxyhemoglobin Sodium Potassium Chloride Carbon Dioxide BUN Creatinine Glucose POC Glucose 190 H 256 H 184 H Lactic Acid Calcium AST Alkaline Phosphatase CK-MB (CK-2) CK-MB (CK-2) Rel Index Albumin TSH Urine WBC (Auto) Salicylates 02/14/17 02/14/17 02/14/17 12:21 17:57 23:18 WBC RBC Hgb Hct MCV MCH RDW Plt Count Lymph % (Auto) Martin % (Auto) Eos % (Auto) Seg Neutrophils % Seg Neuts % (Manual) Lymphocytes % (Manual) Seg Neutrophils # Seg Neutrophils # Man Lymphocytes # (Manual) APTT POC ABG pH ABG pH POC ABG pCO2 POC ABG pO2 ABG pO2 ABG HCO3 ABG Base Excess ABG Hemoglobin VBG pH Oxyhemoglobin Sodium Potassium Chloride Carbon Dioxide BUN Creatinine Glucose POC Glucose 233 H 155 H 165 H Lactic Acid Calcium AST Alkaline Phosphatase CK-MB (CK-2) CK-MB (CK-2) Rel Index Albumin TSH Urine WBC (Auto) Salicylates 02/15/17 02/15/17 02/15/17 05:33 11:45 17:20 WBC RBC Hgb Hct MCV MCH RDW Plt Count Lymph % (Auto) Martin % (Auto) Eos % (Auto) Seg Neutrophils % Seg Neuts % (Manual) Lymphocytes % (Manual) Seg Neutrophils # Seg Neutrophils # Man Lymphocytes # (Manual) APTT POC ABG pH ABG pH POC ABG pCO2 POC ABG pO2 ABG pO2 ABG HCO3 ABG Base Excess ABG Hemoglobin VBG pH Oxyhemoglobin Sodium Potassium Chloride Carbon Dioxide BUN Creatinine Glucose POC Glucose 239 H 130 H 189 H Lactic Acid Calcium AST Alkaline Phosphatase CK-MB (CK-2) CK-MB (CK-2) Rel Index Albumin TSH Urine WBC (Auto) Salicylates 02/16/17 02/16/17 02/16/17 00:14 05:09 12:31 WBC RBC Hgb Hct MCV MCH RDW Plt Count Lymph % (Auto) Martin % (Auto) Eos % (Auto) Seg Neutrophils % Seg Neuts % (Manual) Lymphocytes % (Manual) Seg Neutrophils # Seg Neutrophils # Man Lymphocytes # (Manual) APTT POC ABG pH ABG pH POC ABG pCO2 POC ABG pO2 ABG pO2 ABG HCO3 ABG Base Excess ABG Hemoglobin VBG pH Oxyhemoglobin Sodium Potassium Chloride Carbon Dioxide BUN Creatinine Glucose POC Glucose 197 H 226 H 178 H Lactic Acid Calcium AST Alkaline Phosphatase CK-MB (CK-2) CK-MB (CK-2) Rel Index Albumin TSH Urine WBC (Auto) Salicylates 02/16/17 02/16/17 02/17/17 16:35 23:49 05:37 WBC RBC Hgb Hct MCV MCH RDW Plt Count Lymph % (Auto) Martin % (Auto) Eos % (Auto) Seg Neutrophils % Seg Neuts % (Manual) Lymphocytes % (Manual) Seg Neutrophils # Seg Neutrophils # Man Lymphocytes # (Manual) APTT POC ABG pH ABG pH POC ABG pCO2 POC ABG pO2 ABG pO2 ABG HCO3 ABG Base Excess ABG Hemoglobin VBG pH Oxyhemoglobin Sodium Potassium Chloride Carbon Dioxide BUN Creatinine Glucose POC Glucose 174 H 62 L 153 H Lactic Acid Calcium AST Alkaline Phosphatase CK-MB (CK-2) CK-MB (CK-2) Rel Index Albumin TSH Urine WBC (Auto) Salicylates 02/17/17 02/17/17 02/17/17 11:39 17:02 22:24 WBC RBC Hgb Hct MCV MCH RDW Plt Count Lymph % (Auto) Martin % (Auto) Eos % (Auto) Seg Neutrophils % Seg Neuts % (Manual) Lymphocytes % (Manual) Seg Neutrophils # Seg Neutrophils # Man Lymphocytes # (Manual) APTT POC ABG pH ABG pH POC ABG pCO2 POC ABG pO2 ABG pO2 ABG HCO3 ABG Base Excess ABG Hemoglobin VBG pH Oxyhemoglobin Sodium Potassium Chloride Carbon Dioxide BUN Creatinine Glucose POC Glucose 231 H 112 H 116 H Lactic Acid Calcium AST Alkaline Phosphatase CK-MB (CK-2) CK-MB (CK-2) Rel Index Albumin TSH Urine WBC (Auto) Salicylates 02/18/17 02/19/17 02/19/17 15:34 05:09 07:57 WBC RBC Hgb Hct MCV MCH RDW Plt Count Lymph % (Auto) Martin % (Auto) Eos % (Auto) Seg Neutrophils % Seg Neuts % (Manual) Lymphocytes % (Manual) Seg Neutrophils # Seg Neutrophils # Man Lymphocytes # (Manual) APTT POC ABG pH ABG pH POC ABG pCO2 POC ABG pO2 ABG pO2 ABG HCO3 ABG Base Excess ABG Hemoglobin VBG pH Oxyhemoglobin Sodium Potassium Chloride Carbon Dioxide BUN Creatinine Glucose POC Glucose 215 H 218 H 283 H Lactic Acid Calcium AST Alkaline Phosphatase CK-MB (CK-2) CK-MB (CK-2) Rel Index Albumin TSH Urine WBC (Auto) Salicylates 02/19/17 02/19/17 02/20/17 14:49 22:10 05:10 WBC RBC Hgb Hct MCV MCH RDW Plt Count Lymph % (Auto) Martin % (Auto) Eos % (Auto) Seg Neutrophils % Seg Neuts % (Manual) Lymphocytes % (Manual) Seg Neutrophils # Seg Neutrophils # Man Lymphocytes # (Manual) APTT POC ABG pH ABG pH POC ABG pCO2 POC ABG pO2 ABG pO2 ABG HCO3 ABG Base Excess ABG Hemoglobin VBG pH Oxyhemoglobin Sodium Potassium Chloride Carbon Dioxide BUN Creatinine Glucose POC Glucose 290 H 169 H 209 H Lactic Acid Calcium AST Alkaline Phosphatase CK-MB (CK-2) CK-MB (CK-2) Rel Index Albumin TSH Urine WBC (Auto) Salicylates 02/20/17 02/20/17 02/21/17 15:05 21:52 02:00 WBC RBC Hgb Hct MCV MCH RDW Plt Count Lymph % (Auto) Martin % (Auto) Eos % (Auto) Seg Neutrophils % Seg Neuts % (Manual) Lymphocytes % (Manual) Seg Neutrophils # Seg Neutrophils # Man Lymphocytes # (Manual) APTT POC ABG pH ABG pH POC ABG pCO2 POC ABG pO2 ABG pO2 ABG HCO3 ABG Base Excess ABG Hemoglobin VBG pH Oxyhemoglobin Sodium Potassium Chloride Carbon Dioxide BUN Creatinine Glucose POC Glucose 172 H 209 H 216 H Lactic Acid Calcium AST Alkaline Phosphatase CK-MB (CK-2) CK-MB (CK-2) Rel Index Albumin TSH Urine WBC (Auto) Salicylates 02/21/17 02/21/17 02/21/17 04:54 14:43 17:47 WBC RBC Hgb Hct MCV MCH RDW Plt Count Lymph % (Auto) Martin % (Auto) Eos % (Auto) Seg Neutrophils % Seg Neuts % (Manual) Lymphocytes % (Manual) Seg Neutrophils # Seg Neutrophils # Man Lymphocytes # (Manual) APTT POC ABG pH ABG pH POC ABG pCO2 POC ABG pO2 ABG pO2 ABG HCO3 ABG Base Excess ABG Hemoglobin VBG pH Oxyhemoglobin Sodium Potassium Chloride Carbon Dioxide BUN Creatinine Glucose POC Glucose 227 H 290 H 220 H Lactic Acid Calcium AST Alkaline Phosphatase CK-MB (CK-2) CK-MB (CK-2) Rel Index Albumin TSH Urine WBC (Auto) Salicylates 02/21/17 02/22/17 02/22/17 22:02 04:52 15:25 WBC RBC Hgb Hct MCV MCH RDW Plt Count Lymph % (Auto) Martin % (Auto) Eos % (Auto) Seg Neutrophils % Seg Neuts % (Manual) Lymphocytes % (Manual) Seg Neutrophils # Seg Neutrophils # Man Lymphocytes # (Manual) APTT POC ABG pH ABG pH POC ABG pCO2 POC ABG pO2 ABG pO2 ABG HCO3 ABG Base Excess ABG Hemoglobin VBG pH Oxyhemoglobin Sodium Potassium Chloride Carbon Dioxide BUN Creatinine Glucose POC Glucose 246 H 212 H 236 H Lactic Acid Calcium AST Alkaline Phosphatase CK-MB (CK-2) CK-MB (CK-2) Rel Index Albumin TSH Urine WBC (Auto) Salicylates 02/22/17 02/23/17 02/23/17 21:33 06:04 10:00 WBC RBC Hgb Hct MCV MCH RDW Plt Count Lymph % (Auto) Martin % (Auto) Eos % (Auto) Seg Neutrophils % Seg Neuts % (Manual) Lymphocytes % (Manual) Seg Neutrophils # Seg Neutrophils # Man Lymphocytes # (Manual) APTT POC ABG pH ABG pH POC ABG pCO2 POC ABG pO2 ABG pO2 ABG HCO3 ABG Base Excess ABG Hemoglobin VBG pH Oxyhemoglobin Sodium Potassium Chloride Carbon Dioxide BUN Creatinine Glucose POC Glucose 255 H 208 H 174 H Lactic Acid Calcium AST Alkaline Phosphatase CK-MB (CK-2) CK-MB (CK-2) Rel Index Albumin TSH Urine WBC (Auto) Salicylates 02/23/17 02/23/17 02/23/17 12:52 17:15 21:51 WBC RBC Hgb Hct MCV MCH RDW Plt Count Lymph % (Auto) Martin % (Auto) Eos % (Auto) Seg Neutrophils % Seg Neuts % (Manual) Lymphocytes % (Manual) Seg Neutrophils # Seg Neutrophils # Man Lymphocytes # (Manual) APTT POC ABG pH ABG pH POC ABG pCO2 POC ABG pO2 ABG pO2 ABG HCO3 ABG Base Excess ABG Hemoglobin VBG pH Oxyhemoglobin Sodium Potassium Chloride Carbon Dioxide BUN Creatinine Glucose POC Glucose 203 H 269 H 205 H Lactic Acid Calcium AST Alkaline Phosphatase CK-MB (CK-2) CK-MB (CK-2) Rel Index Albumin TSH Urine WBC (Auto) Salicylates 02/24/17 02/24/17 02/24/17 10:23 17:45 21:24 WBC RBC Hgb Hct MCV MCH RDW Plt Count Lymph % (Auto) Martin % (Auto) Eos % (Auto) Seg Neutrophils % Seg Neuts % (Manual) Lymphocytes % (Manual) Seg Neutrophils # Seg Neutrophils # Man Lymphocytes # (Manual) APTT POC ABG pH ABG pH POC ABG pCO2 POC ABG pO2 ABG pO2 ABG HCO3 ABG Base Excess ABG Hemoglobin VBG pH Oxyhemoglobin Sodium Potassium Chloride Carbon Dioxide BUN Creatinine Glucose POC Glucose 280 H 239 H 254 H Lactic Acid Calcium AST Alkaline Phosphatase CK-MB (CK-2) CK-MB (CK-2) Rel Index Albumin TSH Urine WBC (Auto) Salicylates 02/25/17 02/25/17 02/25/17 02:12 05:17 14:32 WBC RBC Hgb Hct MCV MCH RDW Plt Count Lymph % (Auto) Martin % (Auto) Eos % (Auto) Seg Neutrophils % Seg Neuts % (Manual) Lymphocytes % (Manual) Seg Neutrophils # Seg Neutrophils # Man Lymphocytes # (Manual) APTT POC ABG pH ABG pH POC ABG pCO2 POC ABG pO2 ABG pO2 ABG HCO3 ABG Base Excess ABG Hemoglobin VBG pH Oxyhemoglobin Sodium Potassium Chloride Carbon Dioxide BUN Creatinine Glucose POC Glucose 296 H 332 H 353 H Lactic Acid Calcium AST Alkaline Phosphatase CK-MB (CK-2) CK-MB (CK-2) Rel Index Albumin TSH Urine WBC (Auto) Salicylates 02/25/17 02/26/17 02/26/17 22:14 00:37 05:52 WBC RBC Hgb Hct MCV MCH RDW Plt Count Lymph % (Auto) Martin % (Auto) Eos % (Auto) Seg Neutrophils % Seg Neuts % (Manual) Lymphocytes % (Manual) Seg Neutrophils # Seg Neutrophils # Man Lymphocytes # (Manual) APTT POC ABG pH ABG pH POC ABG pCO2 POC ABG pO2 ABG pO2 ABG HCO3 ABG Base Excess ABG Hemoglobin VBG pH Oxyhemoglobin Sodium Potassium Chloride Carbon Dioxide BUN Creatinine Glucose POC Glucose 201 H 233 H 269 H Lactic Acid Calcium AST Alkaline Phosphatase CK-MB (CK-2) CK-MB (CK-2) Rel Index Albumin TSH Urine WBC (Auto) Salicylates 02/26/17 02/26/17 02/26/17 11:48 13:49 21:26 WBC RBC Hgb Hct MCV MCH RDW Plt Count Lymph % (Auto) Martin % (Auto) Eos % (Auto) Seg Neutrophils % Seg Neuts % (Manual) Lymphocytes % (Manual) Seg Neutrophils # Seg Neutrophils # Man Lymphocytes # (Manual) APTT POC ABG pH ABG pH POC ABG pCO2 POC ABG pO2 ABG pO2 ABG HCO3 ABG Base Excess ABG Hemoglobin VBG pH Oxyhemoglobin Sodium Potassium Chloride Carbon Dioxide BUN Creatinine Glucose POC Glucose 333 H 322 H 244 H Lactic Acid Calcium AST Alkaline Phosphatase CK-MB (CK-2) CK-MB (CK-2) Rel Index Albumin TSH Urine WBC (Auto) Salicylates 02/27/17 02/27/17 02/27/17 05:27 13:51 21:48 WBC RBC Hgb Hct MCV MCH RDW Plt Count Lymph % (Auto) Martin % (Auto) Eos % (Auto) Seg Neutrophils % Seg Neuts % (Manual) Lymphocytes % (Manual) Seg Neutrophils # Seg Neutrophils # Man Lymphocytes # (Manual) APTT POC ABG pH ABG pH POC ABG pCO2 POC ABG pO2 ABG pO2 ABG HCO3 ABG Base Excess ABG Hemoglobin VBG pH Oxyhemoglobin Sodium Potassium Chloride Carbon Dioxide BUN Creatinine Glucose POC Glucose 217 H 239 H 254 H Lactic Acid Calcium AST Alkaline Phosphatase CK-MB (CK-2) CK-MB (CK-2) Rel Index Albumin TSH Urine WBC (Auto) Salicylates 02/28/17 02/28/17 02/28/17 05:38 11:00 19:44 WBC RBC Hgb Hct MCV MCH RDW Plt Count Lymph % (Auto) Martin % (Auto) Eos % (Auto) Seg Neutrophils % Seg Neuts % (Manual) Lymphocytes % (Manual) Seg Neutrophils # Seg Neutrophils # Man Lymphocytes # (Manual) APTT POC ABG pH ABG pH POC ABG pCO2 POC ABG pO2 ABG pO2 ABG HCO3 ABG Base Excess ABG Hemoglobin VBG pH Oxyhemoglobin Sodium Potassium Chloride Carbon Dioxide BUN Creatinine Glucose POC Glucose 325 H 203 H 116 H Lactic Acid Calcium AST Alkaline Phosphatase CK-MB (CK-2) CK-MB (CK-2) Rel Index Albumin TSH Urine WBC (Auto) Salicylates 03/01/17 03/01/17 03/01/17 00:08 05:31 12:17 WBC RBC Hgb Hct MCV MCH RDW Plt Count Lymph % (Auto) Martin % (Auto) Eos % (Auto) Seg Neutrophils % Seg Neuts % (Manual) Lymphocytes % (Manual) Seg Neutrophils # Seg Neutrophils # Man Lymphocytes # (Manual) APTT POC ABG pH ABG pH POC ABG pCO2 POC ABG pO2 ABG pO2 ABG HCO3 ABG Base Excess ABG Hemoglobin VBG pH Oxyhemoglobin Sodium Potassium Chloride Carbon Dioxide BUN Creatinine Glucose POC Glucose 202 H 183 H 184 H Lactic Acid Calcium AST Alkaline Phosphatase CK-MB (CK-2) CK-MB (CK-2) Rel Index Albumin TSH Urine WBC (Auto) Salicylates 03/02/17 03/02/17 03/02/17 00:12 05:58 18:22 WBC RBC Hgb Hct MCV MCH RDW Plt Count Lymph % (Auto) Martin % (Auto) Eos % (Auto) Seg Neutrophils % Seg Neuts % (Manual) Lymphocytes % (Manual) Seg Neutrophils # Seg Neutrophils # Man Lymphocytes # (Manual) APTT POC ABG pH ABG pH POC ABG pCO2 POC ABG pO2 ABG pO2 ABG HCO3 ABG Base Excess ABG Hemoglobin VBG pH Oxyhemoglobin Sodium Potassium Chloride Carbon Dioxide BUN Creatinine Glucose POC Glucose 117 H 176 H 156 H Lactic Acid Calcium AST Alkaline Phosphatase CK-MB (CK-2) CK-MB (CK-2) Rel Index Albumin TSH Urine WBC (Auto) Salicylates 03/02/17 03/03/17 03/03/17 23:51 05:44 11:32 WBC RBC Hgb Hct MCV MCH RDW Plt Count Lymph % (Auto) Martin % (Auto) Eos % (Auto) Seg Neutrophils % Seg Neuts % (Manual) Lymphocytes % (Manual) Seg Neutrophils # Seg Neutrophils # Man Lymphocytes # (Manual) APTT POC ABG pH ABG pH POC ABG pCO2 POC ABG pO2 ABG pO2 ABG HCO3 ABG Base Excess ABG Hemoglobin VBG pH Oxyhemoglobin Sodium Potassium Chloride Carbon Dioxide BUN Creatinine Glucose POC Glucose 211 H 117 H 133 H Lactic Acid Calcium AST Alkaline Phosphatase CK-MB (CK-2) CK-MB (CK-2) Rel Index Albumin TSH Urine WBC (Auto) Salicylates 03/03/17 03/03/17 03/04/17 17:43 23:17 05:30 WBC RBC Hgb Hct MCV MCH RDW Plt Count Lymph % (Auto) Martin % (Auto) Eos % (Auto) Seg Neutrophils % Seg Neuts % (Manual) Lymphocytes % (Manual) Seg Neutrophils # Seg Neutrophils # Man Lymphocytes # (Manual) APTT POC ABG pH ABG pH POC ABG pCO2 POC ABG pO2 ABG pO2 ABG HCO3 ABG Base Excess ABG Hemoglobin VBG pH Oxyhemoglobin Sodium Potassium Chloride Carbon Dioxide BUN Creatinine Glucose POC Glucose 206 H 170 H 126 H Lactic Acid Calcium AST Alkaline Phosphatase CK-MB (CK-2) CK-MB (CK-2) Rel Index Albumin TSH Urine WBC (Auto) Salicylates 03/04/17 03/04/17 03/05/17 12:17 17:27 05:20 WBC RBC Hgb Hct MCV MCH RDW Plt Count Lymph % (Auto) Martin % (Auto) Eos % (Auto) Seg Neutrophils % Seg Neuts % (Manual) Lymphocytes % (Manual) Seg Neutrophils # Seg Neutrophils # Man Lymphocytes # (Manual) APTT POC ABG pH ABG pH POC ABG pCO2 POC ABG pO2 ABG pO2 ABG HCO3 ABG Base Excess ABG Hemoglobin VBG pH Oxyhemoglobin Sodium Potassium Chloride Carbon Dioxide BUN Creatinine Glucose POC Glucose 135 H 121 H 185 H Lactic Acid Calcium AST Alkaline Phosphatase CK-MB (CK-2) CK-MB (CK-2) Rel Index Albumin TSH Urine WBC (Auto) Salicylates 03/05/17 03/06/17 03/06/17 11:50 11:52 17:34 WBC RBC Hgb Hct MCV MCH RDW Plt Count Lymph % (Auto) Martin % (Auto) Eos % (Auto) Seg Neutrophils % Seg Neuts % (Manual) Lymphocytes % (Manual) Seg Neutrophils # Seg Neutrophils # Man Lymphocytes # (Manual) APTT POC ABG pH ABG pH POC ABG pCO2 POC ABG pO2 ABG pO2 ABG HCO3 ABG Base Excess ABG Hemoglobin VBG pH Oxyhemoglobin Sodium Potassium Chloride Carbon Dioxide BUN Creatinine Glucose POC Glucose 116 H 133 H 181 H Lactic Acid Calcium AST Alkaline Phosphatase CK-MB (CK-2) CK-MB (CK-2) Rel Index Albumin TSH Urine WBC (Auto) Salicylates 03/07/17 03/07/17 03/07/17 05:21 11:36 17:49 WBC RBC Hgb Hct MCV MCH RDW Plt Count Lymph % (Auto) Martin % (Auto) Eos % (Auto) Seg Neutrophils % Seg Neuts % (Manual) Lymphocytes % (Manual) Seg Neutrophils # Seg Neutrophils # Man Lymphocytes # (Manual) APTT POC ABG pH ABG pH POC ABG pCO2 POC ABG pO2 ABG pO2 ABG HCO3 ABG Base Excess ABG Hemoglobin VBG pH Oxyhemoglobin Sodium Potassium Chloride Carbon Dioxide BUN Creatinine Glucose POC Glucose 159 H 137 H 158 H Lactic Acid Calcium AST Alkaline Phosphatase CK-MB (CK-2) CK-MB (CK-2) Rel Index Albumin TSH Urine WBC (Auto) Salicylates 03/08/17 05:51 WBC RBC Hgb Hct MCV MCH RDW Plt Count Lymph % (Auto) Martin % (Auto) Eos % (Auto) Seg Neutrophils % Seg Neuts % (Manual) Lymphocytes % (Manual) Seg Neutrophils # Seg Neutrophils # Man Lymphocytes # (Manual) APTT POC ABG pH ABG pH POC ABG pCO2 POC ABG pO2 ABG pO2 ABG HCO3 ABG Base Excess ABG Hemoglobin VBG pH Oxyhemoglobin Sodium Potassium Chloride Carbon Dioxide BUN Creatinine Glucose POC Glucose 122 H Lactic Acid Calcium AST Alkaline Phosphatase CK-MB (CK-2) CK-MB (CK-2) Rel Index Albumin TSH Urine WBC (Auto) Salicylates
[2017-03-09] MEDS: HumuLIN R SUB-Q SCH ×4 (05:38→18:00)
[2017-03-09] MEDS: SYNTHROID PO SCH (05:38)
[2017-03-09 06:17] LABS: Hematocrit 28.3 % (35.5-45.6); Hemoglobin 9.5 gm/dl (11.8-15.2); Mean Corpuscular HGB Conc 34 % (32-34); Mean Corpuscular Hemoglobin 26 pg (28-32); Mean Corpuscular Volume 79 fl (84-94); Platelet Count 339 K/mm3 (140-440); Red Blood Count 3.61 M/mm3 (3.65-5.03); Red Cell Distribution Width 17.8 % (13.2-15.2)
[2017-03-09 06:36] LABS: BUN/Creatinine Ratio 66; Blood Urea Nitrogen 33 mg/dL (9-20); Calcium 8.9 mg/dL (8.4-10.2); Hemolysis Index 22
[2017-03-09] MEDS: LEVEMIR (NF) SUB-Q SCH (10:15)
[2017-03-09] MEDS: HEPARIN SUB-Q SCH (10:20)
[2017-03-09] MEDS: PEPCID PO SCH ×2 (10:20→21:33)
--- NOTE | 2017-03-09 11:45 | Progress Note ---
Assessment and Plan Assessment and plan: Hypoglycemic brain injury. Patient was found hypoglycemic. He is now in coma, vegetative state, Unresponsive Persistent vegetative state. Supportive care Metabolic encephalopathy due to hypoglycemia Hypoglycemia/hypothermia, resolved Acute respiratory failure. Intubated, on ventilator. Hyponatremia. Now resolved. Hypothyroidism Diabetes mellitus type 2. Check fingerstick glucose q 6h. Continue Levemir subcut daily Hypertension. BP stable Leukocytosis due to UTI. UTI with ESBL. DNR- awaiting hospice placement, awaiting guardianship from the state to give consent, as has no family to give consent History Interval history: no new issues overnight 51 YO Male with CKD,HTN, DM presents to ED for evaluation. Pt unable to provide history. Pt history taken from ED staff, and medical records. Pt found down and unresponsive by his neighbor, who subsequently called EMS. Upon arrival, patient found unresponsive on the floor with a serum glucose of 21, and covered with ants with insulin syringes around him and a bottle of atenolol which still had many pills remaining, patient has a known history of alcohol abuse and delirium tremens. The patient was administered D5 approximate 500 mls during transport without change in mental status/level of consciousness. Pt seen and evaluated in ED was was found to be unable to protect his airway. Pt intubated and placed on vent support. Pt found to have evidence of hypothyroidism. He was started on Synthroid. He has since been in the ICU. The patient continued to deteriorate. He is in this grade 4 coma, brain imaging does not show any reversible cause. The patient remains in a persistent vegetative states. Sepsis has been ruled out. food and nutrition services supervisor try to locate family, even spoke to the family who he lives with. They themselves were unaware of any family members. After ethics committee meeting on the patient, the decision was made to make him DO NOT RESUSCITATE and to transfer him to hospice. The hospital is trying to get guardianship to sign necessary orders for hospice, however, unsure if they are willing to sign for withdrawal of ventilator Hospitalist Physical - Constitutional Vitals: Temp Pulse Resp BP Pulse Ox 97.6 F 84 15 120/77 97 03/09/17 08:00 03/09/17 10:30 03/09/17 06:00 03/09/17 07:05 03/09/17 10:30 General appearance: Present: no acute distress, well-nourished - EENT Eyes: Present: PERRL, EOM intact ENT: hearing intact, clear oral mucosa, dentition normal - Neck Neck: Present: supple, normal ROM - Respiratory Respiratory effort: normal Respiratory: bilateral: CTA - Cardiovascular Rhythm: regular Heart Sounds: Present: S1 & S2. Absent: gallop, rub - Extremities Extremities: no ischemia, No edema, Full ROM - Abdominal General gastrointestinal: soft, non-tender, non-distended, normal bowel sounds - Integumentary Integumentary: Present: clear, warm, dry - Neurologic Neurologic: CNII-XII intact, moves all extremities Results - Labs CBC & Chem 7: 03/09/17 05:51 03/09/17 05:51 Labs: Laboratory Last Values WBC 6.0 K/mm3 (4.5-11.0) 03/09/17 05:51 RBC 3.61 M/mm3 (3.65-5.03) L 03/09/17 05:51 Hgb 9.5 gm/dl (11.8-15.2) L 03/09/17 05:51 Hct 28.3 % (35.5-45.6) L 03/09/17 05:51 MCV 79 fl (84-94) L 03/09/17 05:51 MCH 26 pg (28-32) L 03/09/17 05:51 MCHC 34 % (32-34) 03/09/17 05:51 RDW 17.8 % (13.2-15.2) H 03/09/17 05:51 Plt Count 339 K/mm3 (140-440) 03/09/17 05:51 Lymph % (Auto) 11.8 % (13.4-35.0) L 02/09/17 07:24 Bryan % (Auto) 4.7 % (0.0-7.3) 02/09/17 07:24 Eos % (Auto) 1.9 % (0.0-4.3) 02/09/17 07:24 Baso % (Auto) 0.4 % (0.0-1.8) 02/09/17 07:24 Lymph # 1.7 K/mm3 (1.2-5.4) 02/09/17 07:24 Bryan # 0.7 K/mm3 (0.0-0.8) 02/09/17 07:24 Eos # 0.3 K/mm3 (0.0-0.4) 02/09/17 07:24 Baso # 0.1 K/mm3 (0.0-0.1) 02/09/17 07:24 Add Manual Diff Complete 01/10/17 04:30 Total Counted 100 01/10/17 04:30 Seg Neutrophils % 81.2 % (40.0-70.0) H 02/09/17 07:24 Seg Neuts % (Manual) 88.0 % (40.0-70.0) H 01/10/17 04:30 Band Neutrophils % 7.0 % 01/10/17 04:30 Lymphocytes % (Manual) 4.0 % (13.4-35.0) L 01/10/17 04:30 Reactive Lymphs % (Man) 0 % 01/10/17 04:30 Monocytes % (Manual) 1.0 % (0.0-7.3) 01/10/17 04:30 Eosinophils % (Manual) 0 % (0.0-4.3) 01/10/17 04:30 Basophils % (Manual) 0 % (0.0-1.8) 01/10/17 04:30 Metamyelocytes % 0 % 01/10/17 04:30 Myelocytes % 0 % 01/10/17 04:30 Promyelocytes % 0 % 01/10/17 04:30 Blast Cells % 0 % 01/10/17 04:30 Nucleated RBC % Not Reportable 01/10/17 04:30 Seg Neutrophils # 11.9 K/mm3 (1.8-7.7) H 02/09/17 07:24 Seg Neutrophils # Man 21.2 K/mm3 (1.8-7.7) H 01/10/17 04:30 Band Neutrophils # 1.7 K/mm3 01/10/17 04:30 Lymphocytes # (Manual) 1.0 K/mm3 (1.2-5.4) L 01/10/17 04:30 Abs React Lymphs (Man) 0.0 K/mm3 01/10/17 04:30 Monocytes # (Manual) 0.2 K/mm3 (0.0-0.8) 01/10/17 04:30 Eosinophils # (Manual) 0.0 K/mm3 (0.0-0.4) 01/10/17 04:30 Basophils # (Manual) 0.0 K/mm3 (0.0-0.1) 01/10/17 04:30 Metamyelocytes # 0.0 K/mm3 01/10/17 04:30 Myelocytes # 0.0 K/mm3 01/10/17 04:30 Promyelocytes # 0.0 K/mm3 01/10/17 04:30 Blast Cells # 0.0 K/mm3 01/10/17 04:30 WBC Morphology Not Reportable 01/10/17 04:30 Hypersegmented Neuts Not Reportable 01/10/17 04:30 Hyposegmented Neuts Not Reportable 01/10/17 04:30 Hypogranular Neuts Not Reportable 01/10/17 04:30 Smudge Cells Not Reportable 01/10/17 04:30 Toxic Granulation Not Reportable 01/10/17 04:30 Toxic Vacuolation Not Reportable 01/10/17 04:30 Dohle Bodies Not Reportable 01/10/17 04:30 Pelger-Huet Anomaly Not Reportable 01/10/17 04:30 Shelby Rods Not Reportable 01/10/17 04:30 Platelet Estimate Consistent w auto 01/10/17 04:30 Clumped Platelets Not Reportable 01/10/17 04:30 Plt Clumps, EDTA Not Reportable 01/10/17 04:30 Large Platelets Not Reportable 01/10/17 04:30 Giant Platelets Not Reportable 01/10/17 04:30 Platelet Satelliting Not Reportable 01/10/17 04:30 Plt Morphology Comment Not Reportable 01/10/17 04:30 RBC Morphology Not Reportable 01/10/17 04:30 Dimorphic RBCs Not Reportable 01/10/17 04:30 Polychromasia Not Reportable 01/10/17 04:30 Hypochromasia 1+ 01/10/17 04:30 Poikilocytosis Not Reportable 01/10/17 04:30 Anisocytosis Not Reportable 01/10/17 04:30 Microcytosis Not Reportable 01/10/17 04:30 Macrocytosis Not Reportable 01/10/17 04:30 Spherocytes Not Reportable 01/10/17 04:30 Pappenheimer Bodies Not Reportable 01/10/17 04:30 Sickle Cells Not Reportable 01/10/17 04:30 Target Cells Not Reportable 01/10/17 04:30 Tear Drop Cells Not Reportable 01/10/17 04:30 Ovalocytes Not Reportable 01/10/17 04:30 Helmet Cells Not Reportable 01/10/17 04:30 Jarrett-Welby Bodies Not Reportable 01/10/17 04:30 [place] Rings Not Reportable 01/10/17 04:30 [place] Cells Not Reportable 01/10/17 04:30 Bite Cells Not Reportable 01/10/17 04:30 Crenated Cell Not Reportable 01/10/17 04:30 Elliptocytes Not Reportable 01/10/17 04:30 Acanthocytes (Spur) Not Reportable 01/10/17 04:30 Rouleaux Not Reportable 01/10/17 04:30 Hemoglobin C Crystals Not Reportable 01/10/17 04:30 Schistocytes Not Reportable 01/10/17 04:30 Malaria parasites Not Reportable 01/10/17 04:30 Kyle Bodies Not Reportable 01/10/17 04:30 Hem Pathologist Commnt No 01/10/17 04:30 PT 14.1 Sec. (12.2-14.9) 01/17/17 04:10 INR 1.04 (0.87-1.13) 01/17/17 04:10 APTT 36.6 Sec. (24.2-36.6) 01/17/17 04:10 POC ABG pH 7.442 (7.35-7.45) 01/31/17 18:55 ABG pH 7.420 pH Units (7.350-7.450) 01/17/17 04:35 POC ABG pCO2 32.8 (35-45) L 01/31/17 18:55 ABG pCO2 34.5 mm Hg 01/17/17 04:35 POC ABG pO2 82 (80-105) 01/31/17 18:55 ABG pO2 160.3 mm Hg (80.0-90.0) H 01/17/17 04:35 POC ABG HCO3 22.4 01/31/17 18:55 ABG HCO3 21.9 mmol/L (20.0-26.0) 01/17/17 04:35 POC ABG Total CO2 23 01/31/17 18:55 POC ABG O2 Sat 97 01/31/17 18:55 ABG O2 Saturation 99.0 % (95.0-99.0) 01/17/17 04:35 ABG O2 Content 11.1 (0.0-44) 01/17/17 04:35 POC ABG Base Excess -2 01/31/17 18:55 ABG Base Excess -2.3 mmol/L (-2.0-3.0) L 01/17/17 04:35 ABG Hemoglobin 7.9 gm/dl (14.0-18.0) L 01/17/17 04:35 ABG Carboxyhemoglobin 1.5 % (0.0-5.0) 01/17/17 04:35 ABG Methemoglobin 0.5 % (0.0-1.5) 01/17/17 04:35 VBG pH 7.284 (7.320-7.420) L 01/09/17 10:16 Oxyhemoglobin 97.1 % (95.0-99.0) 01/17/17 04:35 FiO2 25 % 01/31/17 18:55 Sodium 134 mmol/L (137-145) L 03/09/17 05:51 Potassium 4.7 mmol/L (3.6-5.0) 03/09/17 05:51 Chloride 95.5 mmol/L (98-107) L 03/09/17 05:51 Carbon Dioxide 23 mmol/L (22-30) 03/09/17 05:51 Anion Gap 20 mmol/L 03/09/17 05:51 BUN 33 mg/dL (9-20) H 03/09/17 05:51 Creatinine 0.5 mg/dL (0.8-1.5) L 03/09/17 05:51 Estimated GFR > 60 ml/min 03/09/17 05:51 BUN/Creatinine Ratio 66 % 03/09/17 05:51 Glucose 143 mg/dL (75-100) H 03/09/17 05:51 POC Glucose 153 (70-105) H 03/09/17 05:21 Lactic Acid 0.80 mmol/L (0.7-2.0) 01/30/17 11:49 Calcium 8.9 mg/dL (8.4-10.2) 03/09/17 05:51 Phosphorus 3.60 mg/dL (2.5-4.5) 01/22/17 04:00 Magnesium 2.10 mg/dL (1.7-2.3) 01/22/17 04:00 Total Bilirubin 0.30 mg/dL (0.1-1.2) 01/22/17 04:00 AST 44 units/L (5-40) H 01/22/17 04:00 ALT 23 units/L (7-56) 01/22/17 04:00 Alkaline Phosphatase 379 units/L (35-129) H 01/22/17 04:00 Ammonia 35.0 umol/L (25-60) 01/09/17 10:16 Total Creatine Kinase 135 units/L (55-170) 01/09/17 10:16 CK-MB (CK-2) 7.1 ng/mL (0.0-4.0) H 01/09/17 10:16 CK-MB (CK-2) Rel Index 5.2 (0-4) H 01/09/17 10:16 Troponin T < 0.010 ng/mL (0.00-0.029) 01/09/17 10:16 NT-Pro-B Natriuret Pep 602.9 pg/mL (0-900) 01/09/17 10:16 Total Protein 7.9 g/dL (6.3-8.2) 01/22/17 04:00 Albumin 2.7 g/dL (3.9-5) L 01/22/17 04:00 Albumin/Globulin Ratio 0.5 % 01/22/17 04:00 TSH 52.800 mlU/mL (0.270-4.200) H 01/09/17 10:16 Free T4 0.78 ng/dL (0.76-1.46) 01/09/17 10:16 Total Cortisol 54.8 mcg/dL () 01/09/17 16:19 Urine Color Yellow (Yellow) 01/28/17 17:52 Urine Turbidity Clear (Clear) 01/28/17 17:52 Urine pH 6.0 (5.0-7.0) 01/28/17 17:52 Ur Specific Dike 1.016 (1.003-1.030) 01/28/17 17:52 Urine Protein 100 mg/dl mg/dL (Negative) 01/28/17 17:52 Urine Glucose (UA) >=500 mg/dL (Negative) 01/28/17 17:52 Urine Ketones Neg mg/dL (Negative) 01/28/17 17:52 Urine Blood Sm (Negative) 01/28/17 17:52 Urine Nitrite Neg (Negative) 01/28/17 17:52 Urine Bilirubin Neg (Negative) 01/28/17 17:52 Urine Urobilinogen < 2.0 mg/dL (<2.0) 01/28/17 17:52 Ur Leukocyte Esterase Lg (Negative) 01/28/17 17:52 Urine WBC (Auto) > 182.0 /HPF (0.0-6.0) H 01/28/17 17:52 Urine RBC (Auto) 113.0 /HPF (0.0-6.0) 01/28/17 17:52 Urine Bacteria (Auto) 2+ /HPF (Negative) 01/28/17 17:52 Urine WBC Clumps 3+ /HPF 01/28/17 17:52 Urine Mucus Few /HPF 01/14/17 14:07 Urine Yeast (Budding) 3+ /HPF 01/14/17 14:07 Salicylates < 0.3 mg/dL (2.8-20.0) L 01/09/17 10:16 Urine Opiates Screen Presumptive negative 01/09/17 10:23 Urine Methadone Screen Presumptive negative 01/09/17 10:23 Acetaminophen < 15.0 ug/mL (10.0-30.0) 01/09/17 10:16 Ur Barbiturates Screen Presumptive negative 01/09/17 10:23 Ur Phencyclidine Scrn Presumptive negative 01/09/17 10:23 Ur Amphetamines Screen Presumptive negative 01/09/17 10:23 U Benzodiazepines Scrn Presumptive negative 01/09/17 10:23 Urine Cocaine Screen Presumptive negative 01/09/17 10:23 U Marijuana (THC) Screen Presumptive negative 01/09/17 10:23 Drugs of Abuse Note Disclamer 01/09/17 10:23 Plasma/Serum Alcohol < 0.01 gm% (0-0.07) 01/09/17 10:16
--- NOTE | 2017-03-09 13:59 | Progress Note ---
Assessment and Plan Imp: 1. Hypoglycemia/hypothermia -> suspect due to too much insulin 2. Hypothyroidism; doubt myxedema coma with normal free T4 3. Acute respiratory failure, hypoxia 4. UTI/SIRS 5. Metabolic encephalopathy Rec: 1. GI/DVT PPx/TFs 2. Reviewed chart; ethics note 01/18/17 recommended AND and "hospice"; trying to get guardianship to sign necessary orders for this (however, I was told they are not willing to sign for withdrawal of ventilator); further care felt to be futile and would only prolong potential suffering without affecting ultimate outcome 3. Comfort care, no escalation of care; would not check any further labs, etc. 4. Poor prognosis Unable to locate family. Subjective Date of service: 03/09/17 Principal diagnosis: Acute respiratory failure,encephalopathy Interval history: No events. On vent. Unresponsive. Active Medications Acetaminophen (Tylenol) 650 mg FEEDTUBE Q6H PRN PRN Reason: Non Cardiac Pain Or Temp>101 Last Admin: 02/27/17 19:34 Dose: 650 mg Lipase/Protease/Amylase (Pancreashley Dr 10,500 Unit) 1 each FEEDTUBE PRN PRN PRN Reason: For Clogged Feeding Tube Dextrose (D50w (25gm) Vial) 50 gm IV PRN PRN PRN Reason: Hypoglycemia Last Admin: 02/17/17 00:10 Dose: 50 gm Famotidine (Pepcid) 20 mg PO BID [facility] Last Admin: 03/08/17 22:10 Dose: 20 mg Hydrophilic Ointment (Vaseline Lip Therapy) 1 applic TP Q2HR PRN PRN Reason: Dry Lips Insulin Detemir (Levemir) 15 units SUB-Q DAILY [facility] Last Admin: 03/08/17 09:55 Dose: 15 units Insulin Human Regular (Novolin R) 0 units SUB-Q Q6HR PAOLO PRN Reason: Protocol Last Admin: 03/09/17 05:38 Dose: Not Given Levothyroxine Sodium (Synthroid) 100 mcg PO DAILY@0600 [facility] Last Admin: 03/09/17 05:38 Dose: 100 mcg Loperamide HCl (Imodium) 2 mg PO Q2H PRN PRN Reason: Diarrhea Last Admin: 03/04/17 12:35 Dose: 2 mg Multi-Ingred Cream/Lotion/Oil/Oint (Artificial Tears Ophth Oint) 1 applic OU Q4HR PRN PRN Reason: Dry Eye(s) Simple Syrup (Simple Syrup) 15 ml FEEDTUBE PRN PRN PRN Reason: Hypoglycemia Last Admin: 02/28/17 18:56 Dose: 15 ml Simple Syrup (Simple Syrup) 30 ml FEEDTUBE PRN PRN PRN Reason: Hypoglycemia Sodium Bicarbonate (Sodium Bicarbonate) 325 mg FEEDTUBE PRN PRN PRN Reason: For Clogged Feeding Tube Objective Vital Signs - 12hr 03/09/17 03/09/17 03/09/17 02:00 04:00 04:23 Temperature 98.6 F Pulse Rate 67 69 76 Respiratory 15 16 Rate Blood Pressure 128/81 115/76 115/76 O2 Sat by Pulse 100 100 100 Oximetry 03/09/17 03/09/17 03/09/17 06:00 07:05 08:00 Temperature 97.6 F Pulse Rate 67 80 Respiratory 15 Rate Blood Pressure 125/82 120/77 O2 Sat by Pulse 100 98 Oximetry 03/09/17 03/09/17 10:30 12:00 Temperature 97.9 F Pulse Rate 84 Respiratory Rate Blood Pressure O2 Sat by Pulse 97 Oximetry Constitutional: no acute distress, alert, other (orally intubated, on vent support) Eyes: non-icteric ENT: oropharynx moist Neck: supple Effort: normal Ascultation: Bilateral: clear Cardiovascular: regular rate and rhythm Gastrointestinal: normoactive bowel sounds, soft, non-tender, non-distended Integumentary: normal Extremities: no cyanosis, no edema, pink and warm Neurologic: other (awake spontaneously, not not following any commands. Fixed stare.) Psychiatric: other (unable to obtain) CBC and BMP: 03/09/17 05:51 03/09/17 05:51 ABG, PT/INR, D-dimer: ABG POC ABG pH 7.442 (7.35-7.45) 01/31/17 18:55 ABG pH 7.420 pH Units (7.350-7.450) 01/17/17 04:35 POC ABG pCO2 32.8 (35-45) L 01/31/17 18:55 ABG pCO2 34.5 mm Hg 01/17/17 04:35 POC ABG pO2 82 (80-105) 01/31/17 18:55 ABG pO2 160.3 mm Hg (80.0-90.0) H 01/17/17 04:35 POC ABG HCO3 22.4 01/31/17 18:55 POC ABG Total CO2 23 01/31/17 18:55 POC ABG O2 Sat 97 01/31/17 18:55 ABG O2 Saturation 99.0 % (95.0-99.0) 01/17/17 04:35 PT/INR, D-dimer PT 14.1 Sec. (12.2-14.9) 01/17/17 04:10 INR 1.04 (0.87-1.13) 01/17/17 04:10 Abnormal lab findings: Abnormal Labs 01/09/17 01/09/17 01/09/17 10:16 10:16 10:16 WBC RBC Hgb 9.7 L Hct 28.4 L MCV 76 L MCH 26 L RDW 17.2 H Plt Count 448 H Lymph % (Auto) [place] % (Auto) Eos % (Auto) Seg Neutrophils % 79.5 H Seg Neuts % (Manual) Lymphocytes % (Manual) Seg Neutrophils # Seg Neutrophils # Man Lymphocytes # (Manual) APTT 39.6 H POC ABG pH ABG pH POC ABG pCO2 POC ABG pO2 ABG pO2 ABG HCO3 ABG Base Excess ABG Hemoglobin VBG pH Oxyhemoglobin Sodium 132 L Potassium Chloride 96.7 L Carbon Dioxide 21 L BUN 34 H Creatinine Glucose POC Glucose Lactic Acid Calcium 8.3 L AST Alkaline Phosphatase 151 H CK-MB (CK-2) 7.1 H CK-MB (CK-2) Rel Index 5.2 H Albumin 3.3 L TSH Urine WBC (Auto) Salicylates 01/09/17 01/09/17 01/09/17 10:16 10:16 10:16 WBC RBC Hgb Hct MCV MCH RDW Plt Count Lymph % (Auto) [place] % (Auto) Eos % (Auto) Seg Neutrophils % Seg Neuts % (Manual) Lymphocytes % (Manual) Seg Neutrophils # Seg Neutrophils # Man Lymphocytes # (Manual) APTT POC ABG pH ABG pH POC ABG pCO2 POC ABG pO2 ABG pO2 ABG HCO3 ABG Base Excess ABG Hemoglobin VBG pH 7.284 L Oxyhemoglobin Sodium Potassium Chloride Carbon Dioxide BUN Creatinine Glucose POC Glucose Lactic Acid Calcium AST Alkaline Phosphatase CK-MB (CK-2) CK-MB (CK-2) Rel Index Albumin TSH 52.800 H Urine WBC (Auto) Salicylates < 0.3 L 01/09/17 01/09/17 01/09/17 10:23 11:14 12:49 WBC RBC Hgb Hct MCV MCH RDW Plt Count Lymph % (Auto) [place] % (Auto) Eos % (Auto) Seg Neutrophils % Seg Neuts % (Manual) Lymphocytes % (Manual) Seg Neutrophils # Seg Neutrophils # Man Lymphocytes # (Manual) APTT POC ABG pH ABG pH POC ABG pCO2 POC ABG pO2 643 H ABG pO2 ABG HCO3 ABG Base Excess ABG Hemoglobin VBG pH Oxyhemoglobin Sodium Potassium Chloride Carbon Dioxide BUN Creatinine Glucose POC Glucose < 40 L Lactic Acid Calcium AST Alkaline Phosphatase CK-MB (CK-2) CK-MB (CK-2) Rel Index Albumin TSH Urine WBC (Auto) 61.0 H Salicylates 01/09/17 01/09/17 01/09/17 13:13 14:21 15:09 WBC RBC Hgb Hct MCV MCH RDW Plt Count Lymph % (Auto) [place] % (Auto) Eos % (Auto) Seg Neutrophils % Seg Neuts % (Manual) Lymphocytes % (Manual) Seg Neutrophils # Seg Neutrophils # Man Lymphocytes # (Manual) APTT POC ABG pH ABG pH POC ABG pCO2 POC ABG pO2 ABG pO2 ABG HCO3 ABG Base Excess ABG Hemoglobin VBG pH Oxyhemoglobin Sodium Potassium Chloride Carbon Dioxide BUN Creatinine Glucose POC Glucose 128 H 65 L 120 H Lactic Acid Calcium AST Alkaline Phosphatase CK-MB (CK-2) CK-MB (CK-2) Rel Index Albumin TSH Urine WBC (Auto) Salicylates 01/09/17 01/09/17 01/10/17 16:28 17:14 04:30 WBC 24.1 H RBC 3.38 L Hgb 8.5 L Hct 26.0 L MCV 77 L MCH 25 L RDW 17.9 H Plt Count 474 H Lymph % (Auto) [place] % (Auto) Eos % (Auto) Seg Neutrophils % Seg Neuts % (Manual) 88.0 H Lymphocytes % (Manual) 4.0 L Seg Neutrophils # Seg Neutrophils # Man 21.2 H Lymphocytes # (Manual) 1.0 L APTT POC ABG pH ABG pH POC ABG pCO2 POC ABG pO2 ABG pO2 ABG HCO3 ABG Base Excess ABG Hemoglobin VBG pH Oxyhemoglobin Sodium Potassium Chloride Carbon Dioxide BUN Creatinine Glucose POC Glucose 44 L 112 H Lactic Acid Calcium AST Alkaline Phosphatase CK-MB (CK-2) CK-MB (CK-2) Rel Index Albumin TSH Urine WBC (Auto) Salicylates 01/10/17 01/10/17 01/10/17 04:30 05:41 05:45 WBC RBC Hgb Hct MCV MCH RDW Plt Count Lymph % (Auto) [place] % (Auto) Eos % (Auto) Seg Neutrophils % Seg Neuts % (Manual) Lymphocytes % (Manual) Seg Neutrophils # Seg Neutrophils # Man Lymphocytes # (Manual) APTT POC ABG pH ABG pH POC ABG pCO2 26.6 L POC ABG pO2 207 H ABG pO2 ABG HCO3 ABG Base Excess ABG Hemoglobin VBG pH Oxyhemoglobin Sodium Potassium Chloride Carbon Dioxide 17 L BUN 27 H Creatinine Glucose POC Glucose 68 L Lactic Acid Calcium 7.5 L AST Alkaline Phosphatase CK-MB (CK-2) CK-MB (CK-2) Rel Index Albumin TSH Urine WBC (Auto) Salicylates 01/10/17 01/10/17 01/10/17 07:47 10:50 13:41 WBC RBC Hgb Hct MCV MCH RDW Plt Count Lymph % (Auto) [place] % (Auto) Eos % (Auto) Seg Neutrophils % Seg Neuts % (Manual) Lymphocytes % (Manual) Seg Neutrophils # Seg Neutrophils # Man Lymphocytes # (Manual) APTT POC ABG pH ABG pH POC ABG pCO2 POC ABG pO2 ABG pO2 ABG HCO3 ABG Base Excess ABG Hemoglobin VBG pH Oxyhemoglobin Sodium Potassium Chloride Carbon Dioxide BUN Creatinine Glucose POC Glucose 148 H 165 H 114 H Lactic Acid Calcium AST Alkaline Phosphatase CK-MB (CK-2) CK-MB (CK-2) Rel Index Albumin TSH Urine WBC (Auto) Salicylates 01/10/17 01/10/17 01/10/17 20:20 21:39 23:24 WBC RBC Hgb Hct MCV MCH RDW Plt Count Lymph % (Auto) [place] % (Auto) Eos % (Auto) Seg Neutrophils % Seg Neuts % (Manual) Lymphocytes % (Manual) Seg Neutrophils # Seg Neutrophils # Man Lymphocytes # (Manual) APTT POC ABG pH ABG pH POC ABG pCO2 POC ABG pO2 ABG pO2 ABG HCO3 ABG Base Excess ABG Hemoglobin VBG pH Oxyhemoglobin Sodium Potassium Chloride Carbon Dioxide BUN Creatinine Glucose POC Glucose 150 H 175 H 155 H Lactic Acid Calcium AST Alkaline Phosphatase CK-MB (CK-2) CK-MB (CK-2) Rel Index Albumin TSH Urine WBC (Auto) Salicylates 01/11/17 01/11/17 01/11/17 00:19 04:06 05:20 WBC 15.2 H RBC 3.40 L Hgb 8.9 L Hct 26.3 L MCV 78 L MCH 26 L RDW 18.6 H Plt Count 462 H Lymph % (Auto) 13.2 L [place] % (Auto) Eos % (Auto) Seg Neutrophils % 80.8 H Seg Neuts % (Manual) Lymphocytes % (Manual) Seg Neutrophils # 12.3 H Seg Neutrophils # Man Lymphocytes # (Manual) APTT POC ABG pH 7.463 H ABG pH POC ABG pCO2 26.2 L POC ABG pO2 185 H ABG pO2 ABG HCO3 ABG Base Excess ABG Hemoglobin VBG pH Oxyhemoglobin Sodium Potassium Chloride Carbon Dioxide BUN Creatinine Glucose POC Glucose 163 H Lactic Acid Calcium AST Alkaline Phosphatase CK-MB (CK-2) CK-MB (CK-2) Rel Index Albumin TSH Urine WBC (Auto) Salicylates 01/11/17 01/11/17 01/11/17 05:20 06:21 07:57 WBC RBC Hgb Hct MCV MCH RDW Plt Count Lymph % (Auto) [place] % (Auto) Eos % (Auto) Seg Neutrophils % Seg Neuts % (Manual) Lymphocytes % (Manual) Seg Neutrophils # Seg Neutrophils # Man Lymphocytes # (Manual) APTT POC ABG pH ABG pH POC ABG pCO2 POC ABG pO2 ABG pO2 ABG HCO3 ABG Base Excess ABG Hemoglobin VBG pH Oxyhemoglobin Sodium Potassium 3.4 L Chloride 111.5 H Carbon Dioxide 17 L BUN Creatinine Glucose 147 H POC Glucose 139 H 188 H Lactic Acid Calcium 8.0 L AST Alkaline Phosphatase CK-MB (CK-2) CK-MB (CK-2) Rel Index Albumin TSH Urine WBC (Auto) Salicylates 01/11/17 01/11/17 01/11/17 11:46 16:50 23:15 WBC RBC Hgb Hct MCV MCH RDW Plt Count Lymph % (Auto) [place] % (Auto) Eos % (Auto) Seg Neutrophils % Seg Neuts % (Manual) Lymphocytes % (Manual) Seg Neutrophils # Seg Neutrophils # Man Lymphocytes # (Manual) APTT POC ABG pH ABG pH POC ABG pCO2 POC ABG pO2 ABG pO2 ABG HCO3 ABG Base Excess ABG Hemoglobin VBG pH Oxyhemoglobin Sodium Potassium Chloride Carbon Dioxide BUN Creatinine Glucose POC Glucose 199 H 235 H 155 H Lactic Acid Calcium AST Alkaline Phosphatase CK-MB (CK-2) CK-MB (CK-2) Rel Index Albumin TSH Urine WBC (Auto) Salicylates 01/12/17 01/12/17 01/12/17 05:02 06:56 14:50 WBC RBC Hgb Hct MCV MCH RDW Plt Count Lymph % (Auto) [place] % (Auto) Eos % (Auto) Seg Neutrophils % Seg Neuts % (Manual) Lymphocytes % (Manual) Seg Neutrophils # Seg Neutrophils # Man Lymphocytes # (Manual) APTT POC ABG pH ABG pH POC ABG pCO2 28.0 L POC ABG pO2 178 H ABG pO2 ABG HCO3 ABG Base Excess ABG Hemoglobin VBG pH Oxyhemoglobin Sodium Potassium Chloride Carbon Dioxide BUN Creatinine Glucose POC Glucose 119 H 164 H Lactic Acid Calcium AST Alkaline Phosphatase CK-MB (CK-2) CK-MB (CK-2) Rel Index Albumin TSH Urine WBC (Auto) Salicylates 01/13/17 01/13/17 01/13/17 03:37 03:37 04:26 WBC RBC 3.61 L Hgb 9.3 L Hct 28.0 L MCV 78 L MCH 26 L RDW 18.2 H Plt Count Lymph % (Auto) [place] % (Auto) Eos % (Auto) Seg Neutrophils % Seg Neuts % (Manual) Lymphocytes % (Manual) Seg Neutrophils # Seg Neutrophils # Man Lymphocytes # (Manual) APTT POC ABG pH 7.485 H ABG pH POC ABG pCO2 25.4 L POC ABG pO2 73 L ABG pO2 ABG HCO3 ABG Base Excess ABG Hemoglobin VBG pH Oxyhemoglobin Sodium Potassium Chloride 112.4 H Carbon Dioxide 19 L BUN Creatinine Glucose 118 H POC Glucose Lactic Acid Calcium 8.0 L AST Alkaline Phosphatase CK-MB (CK-2) CK-MB (CK-2) Rel Index Albumin TSH Urine WBC (Auto) Salicylates 01/13/17 01/13/17 01/13/17 06:15 11:50 17:31 WBC RBC Hgb Hct MCV MCH RDW Plt Count Lymph % (Auto) [place] % (Auto) Eos % (Auto) Seg Neutrophils % Seg Neuts % (Manual) Lymphocytes % (Manual) Seg Neutrophils # Seg Neutrophils # Man Lymphocytes # (Manual) APTT POC ABG pH ABG pH POC ABG pCO2 POC ABG pO2 ABG pO2 ABG HCO3 ABG Base Excess ABG Hemoglobin VBG pH Oxyhemoglobin Sodium Potassium Chloride Carbon Dioxide BUN Creatinine Glucose POC Glucose 116 H 171 H 203 H Lactic Acid Calcium AST Alkaline Phosphatase CK-MB (CK-2) CK-MB (CK-2) Rel Index Albumin TSH Urine WBC (Auto) Salicylates 01/14/17 01/14/17 01/14/17 00:02 04:50 04:50 WBC RBC 3.32 L Hgb 8.5 L Hct 26.1 L MCV 79 L MCH 26 L RDW 18.2 H Plt Count Lymph % (Auto) [place] % (Auto) 9.0 H Eos % (Auto) Seg Neutrophils % Seg Neuts % (Manual) Lymphocytes % (Manual) Seg Neutrophils # Seg Neutrophils # Man Lymphocytes # (Manual) APTT POC ABG pH ABG pH POC ABG pCO2 POC ABG pO2 ABG pO2 ABG HCO3 ABG Base Excess ABG Hemoglobin VBG pH Oxyhemoglobin Sodium Potassium Chloride 112.5 H Carbon Dioxide BUN Creatinine Glucose 149 H POC Glucose 157 H Lactic Acid Calcium 8.1 L AST Alkaline Phosphatase CK-MB (CK-2) CK-MB (CK-2) Rel Index Albumin TSH Urine WBC (Auto) Salicylates 01/14/17 01/14/17 01/14/17 05:10 11:27 14:07 WBC RBC Hgb Hct MCV MCH RDW Plt Count Lymph % (Auto) [place] % (Auto) Eos % (Auto) Seg Neutrophils % Seg Neuts % (Manual) Lymphocytes % (Manual) Seg Neutrophils # Seg Neutrophils # Man Lymphocytes # (Manual) APTT POC ABG pH ABG pH POC ABG pCO2 POC ABG pO2 ABG pO2 ABG HCO3 ABG Base Excess ABG Hemoglobin VBG pH Oxyhemoglobin Sodium Potassium Chloride Carbon Dioxide BUN Creatinine Glucose POC Glucose 176 H 147 H Lactic Acid Calcium AST Alkaline Phosphatase CK-MB (CK-2) CK-MB (CK-2) Rel Index Albumin TSH Urine WBC (Auto) 53.0 H Salicylates 01/14/17 01/15/17 01/15/17 16:52 00:04 05:26 WBC RBC Hgb Hct MCV MCH RDW Plt Count Lymph % (Auto) [place] % (Auto) Eos % (Auto) Seg Neutrophils % Seg Neuts % (Manual) Lymphocytes % (Manual) Seg Neutrophils # Seg Neutrophils # Man Lymphocytes # (Manual) APTT POC ABG pH ABG pH POC ABG pCO2 POC ABG pO2 ABG pO2 ABG HCO3 ABG Base Excess ABG Hemoglobin VBG pH Oxyhemoglobin Sodium Potassium Chloride Carbon Dioxide BUN Creatinine Glucose POC Glucose 131 H 193 H 215 H Lactic Acid Calcium AST Alkaline Phosphatase CK-MB (CK-2) CK-MB (CK-2) Rel Index Albumin TSH Urine WBC (Auto) Salicylates 01/15/17 01/15/17 01/15/17 11:49 17:47 21:33 WBC RBC Hgb Hct MCV MCH RDW Plt Count Lymph % (Auto) [place] % (Auto) Eos % (Auto) Seg Neutrophils % Seg Neuts % (Manual) Lymphocytes % (Manual) Seg Neutrophils # Seg Neutrophils # Man Lymphocytes # (Manual) APTT POC ABG pH ABG pH POC ABG pCO2 POC ABG pO2 ABG pO2 ABG HCO3 ABG Base Excess ABG Hemoglobin VBG pH Oxyhemoglobin Sodium Potassium Chloride Carbon Dioxide BUN Creatinine Glucose POC Glucose 121 H 211 H 275 H Lactic Acid Calcium AST Alkaline Phosphatase CK-MB (CK-2) CK-MB (CK-2) Rel Index Albumin TSH Urine WBC (Auto) Salicylates 01/16/17 01/16/17 01/16/17 04:30 05:28 13:45 WBC RBC Hgb Hct MCV MCH RDW Plt Count Lymph % (Auto) [place] % (Auto) Eos % (Auto) Seg Neutrophils % Seg Neuts % (Manual) Lymphocytes % (Manual) Seg Neutrophils # Seg Neutrophils # Man Lymphocytes # (Manual) APTT POC ABG pH ABG pH 7.457 H POC ABG pCO2 POC ABG pO2 ABG pO2 55.1 L ABG HCO3 19.4 L ABG Base Excess -4.0 L ABG Hemoglobin 6.8 L VBG pH Oxyhemoglobin 94.9 L Sodium Potassium Chloride Carbon Dioxide BUN Creatinine Glucose POC Glucose 271 H 236 H Lactic Acid Calcium AST Alkaline Phosphatase CK-MB (CK-2) CK-MB (CK-2) Rel Index Albumin TSH Urine WBC (Auto) Salicylates 01/16/17 01/17/17 01/17/17 21:39 04:10 04:10 WBC 4.4 L RBC 2.98 L Hgb 7.7 L Hct 23.3 L MCV 78 L MCH 26 L RDW 18.1 H Plt Count Lymph % (Auto) [place] % (Auto) Eos % (Auto) Seg Neutrophils % Seg Neuts % (Manual) Lymphocytes % (Manual) Seg Neutrophils # Seg Neutrophils # Man Lymphocytes # (Manual) APTT POC ABG pH ABG pH POC ABG pCO2 POC ABG pO2 ABG pO2 ABG HCO3 ABG Base Excess ABG Hemoglobin VBG pH Oxyhemoglobin Sodium Potassium 3.3 L Chloride 108.7 H Carbon Dioxide 20 L BUN 8 L Creatinine Glucose 202 H POC Glucose 258 H Lactic Acid Calcium 7.6 L AST Alkaline Phosphatase CK-MB (CK-2) CK-MB (CK-2) Rel Index Albumin TSH Urine WBC (Auto) Salicylates 01/17/17 01/17/17 01/17/17 04:35 12:23 16:01 WBC RBC Hgb Hct MCV MCH RDW Plt Count Lymph % (Auto) [place] % (Auto) Eos % (Auto) Seg Neutrophils % Seg Neuts % (Manual) Lymphocytes % (Manual) Seg Neutrophils # Seg Neutrophils # Man Lymphocytes # (Manual) APTT POC ABG pH ABG pH POC ABG pCO2 POC ABG pO2 ABG pO2 160.3 H ABG HCO3 ABG Base Excess -2.3 L ABG Hemoglobin 7.9 L VBG pH Oxyhemoglobin Sodium Potassium Chloride Carbon Dioxide BUN Creatinine Glucose POC Glucose 321 H 239 H Lactic Acid Calcium AST Alkaline Phosphatase CK-MB (CK-2) CK-MB (CK-2) Rel Index Albumin TSH Urine WBC (Auto) Salicylates 01/18/17 01/18/17 01/18/17 05:07 12:09 17:54 WBC RBC Hgb Hct MCV MCH RDW Plt Count Lymph % (Auto) [place] % (Auto) Eos % (Auto) Seg Neutrophils % Seg Neuts % (Manual) Lymphocytes % (Manual) Seg Neutrophils # Seg Neutrophils # Man Lymphocytes # (Manual) APTT POC ABG pH ABG pH POC ABG pCO2 POC ABG pO2 ABG pO2 ABG HCO3 ABG Base Excess ABG Hemoglobin VBG pH Oxyhemoglobin Sodium Potassium Chloride Carbon Dioxide BUN Creatinine Glucose POC Glucose 155 H 203 H 132 H Lactic Acid Calcium AST Alkaline Phosphatase CK-MB (CK-2) CK-MB (CK-2) Rel Index Albumin TSH Urine WBC (Auto) Salicylates 01/18/17 01/19/17 01/19/17 23:43 04:28 12:11 WBC RBC Hgb Hct MCV MCH RDW Plt Count Lymph % (Auto) [place] % (Auto) Eos % (Auto) Seg Neutrophils % Seg Neuts % (Manual) Lymphocytes % (Manual) Seg Neutrophils # Seg Neutrophils # Man Lymphocytes # (Manual) APTT POC ABG pH ABG pH POC ABG pCO2 POC ABG pO2 ABG pO2 ABG HCO3 ABG Base Excess ABG Hemoglobin VBG pH Oxyhemoglobin Sodium Potassium Chloride Carbon Dioxide BUN Creatinine Glucose POC Glucose 125 H 182 H 153 H Lactic Acid Calcium AST Alkaline Phosphatase CK-MB (CK-2) CK-MB (CK-2) Rel Index Albumin TSH Urine WBC (Auto) Salicylates 01/19/17 01/20/17 01/20/17 17:23 00:12 05:44 WBC RBC Hgb Hct MCV MCH RDW Plt Count Lymph % (Auto) [place] % (Auto) Eos % (Auto) Seg Neutrophils % Seg Neuts % (Manual) Lymphocytes % (Manual) Seg Neutrophils # Seg Neutrophils # Man Lymphocytes # (Manual) APTT POC ABG pH ABG pH POC ABG pCO2 POC ABG pO2 ABG pO2 ABG HCO3 ABG Base Excess ABG Hemoglobin VBG pH Oxyhemoglobin Sodium Potassium Chloride Carbon Dioxide BUN Creatinine Glucose POC Glucose 66 L 139 H 176 H Lactic Acid Calcium AST Alkaline Phosphatase CK-MB (CK-2) CK-MB (CK-2) Rel Index Albumin TSH Urine WBC (Auto) Salicylates 01/20/17 01/20/17 01/20/17 11:48 17:42 23:43 WBC RBC Hgb Hct MCV MCH RDW Plt Count Lymph % (Auto) [place] % (Auto) Eos % (Auto) Seg Neutrophils % Seg Neuts % (Manual) Lymphocytes % (Manual) Seg Neutrophils # Seg Neutrophils # Man Lymphocytes # (Manual) APTT POC ABG pH ABG pH POC ABG pCO2 POC ABG pO2 ABG pO2 ABG HCO3 ABG Base Excess ABG Hemoglobin VBG pH Oxyhemoglobin Sodium Potassium Chloride Carbon Dioxide BUN Creatinine Glucose POC Glucose 218 H 132 H 178 H Lactic Acid Calcium AST Alkaline Phosphatase CK-MB (CK-2) CK-MB (CK-2) Rel Index Albumin TSH Urine WBC (Auto) Salicylates 01/21/17 01/21/17 01/21/17 05:34 11:17 23:37 WBC RBC Hgb Hct MCV MCH RDW Plt Count Lymph % (Auto) [place] % (Auto) Eos % (Auto) Seg Neutrophils % Seg Neuts % (Manual) Lymphocytes % (Manual) Seg Neutrophils # Seg Neutrophils # Man Lymphocytes # (Manual) APTT POC ABG pH ABG pH POC ABG pCO2 POC ABG pO2 ABG pO2 ABG HCO3 ABG Base Excess ABG Hemoglobin VBG pH Oxyhemoglobin Sodium Potassium Chloride Carbon Dioxide BUN Creatinine Glucose POC Glucose 106 H 213 H 140 H Lactic Acid Calcium AST Alkaline Phosphatase CK-MB (CK-2) CK-MB (CK-2) Rel Index Albumin TSH Urine WBC (Auto) Salicylates 01/22/17 01/22/17 01/22/17 04:00 04:00 04:58 WBC RBC 3.26 L Hgb 8.3 L Hct 25.5 L MCV 78 L MCH 25 L RDW 17.9 H Plt Count Lymph % (Auto) [place] % (Auto) 7.9 H Eos % (Auto) 6.2 H Seg Neutrophils % Seg Neuts % (Manual) Lymphocytes % (Manual) Seg Neutrophils # Seg Neutrophils # Man Lymphocytes # (Manual) APTT POC ABG pH ABG pH POC ABG pCO2 POC ABG pO2 ABG pO2 ABG HCO3 ABG Base Excess ABG Hemoglobin VBG pH Oxyhemoglobin Sodium Potassium Chloride 95.5 L Carbon Dioxide 31 H D BUN Creatinine Glucose 134 H POC Glucose 146 H Lactic Acid Calcium AST 44 H Alkaline Phosphatase 379 H CK-MB (CK-2) CK-MB (CK-2) Rel Index Albumin 2.7 L TSH Urine WBC (Auto) Salicylates 01/22/17 01/22/17 01/22/17 12:12 18:12 23:39 WBC RBC Hgb Hct MCV MCH RDW Plt Count Lymph % (Auto) [place] % (Auto) Eos % (Auto) Seg Neutrophils % Seg Neuts % (Manual) Lymphocytes % (Manual) Seg Neutrophils # Seg Neutrophils # Man Lymphocytes # (Manual) APTT POC ABG pH ABG pH POC ABG pCO2 POC ABG pO2 ABG pO2 ABG HCO3 ABG Base Excess ABG Hemoglobin VBG pH Oxyhemoglobin Sodium Potassium Chloride Carbon Dioxide BUN Creatinine Glucose POC Glucose 255 H 182 H 134 H Lactic Acid Calcium AST Alkaline Phosphatase CK-MB (CK-2) CK-MB (CK-2) Rel Index Albumin TSH Urine WBC (Auto) Salicylates 01/23/17 01/23/17 01/23/17 04:43 12:12 17:36 WBC RBC Hgb Hct MCV MCH RDW Plt Count Lymph % (Auto) [place] % (Auto) Eos % (Auto) Seg Neutrophils % Seg Neuts % (Manual) Lymphocytes % (Manual) Seg Neutrophils # Seg Neutrophils # Man Lymphocytes # (Manual) APTT POC ABG pH ABG pH POC ABG pCO2 POC ABG pO2 ABG pO2 ABG HCO3 ABG Base Excess ABG Hemoglobin VBG pH Oxyhemoglobin Sodium Potassium Chloride Carbon Dioxide BUN Creatinine Glucose POC Glucose 218 H 128 H 156 H Lactic Acid Calcium AST Alkaline Phosphatase CK-MB (CK-2) CK-MB (CK-2) Rel Index Albumin TSH Urine WBC (Auto) Salicylates 01/24/17 01/24/17 01/24/17 00:08 05:16 11:40 WBC RBC Hgb Hct MCV MCH RDW Plt Count Lymph % (Auto) [place] % (Auto) Eos % (Auto) Seg Neutrophils % Seg Neuts % (Manual) Lymphocytes % (Manual) Seg Neutrophils # Seg Neutrophils # Man Lymphocytes # (Manual) APTT POC ABG pH ABG pH POC ABG pCO2 POC ABG pO2 ABG pO2 ABG HCO3 ABG Base Excess ABG Hemoglobin VBG pH Oxyhemoglobin Sodium Potassium Chloride Carbon Dioxide BUN Creatinine Glucose POC Glucose 129 H 169 H 187 H Lactic Acid Calcium AST Alkaline Phosphatase CK-MB (CK-2) CK-MB (CK-2) Rel Index Albumin TSH Urine WBC (Auto) Salicylates 01/24/17 01/24/17 01/25/17 17:43 23:23 04:56 WBC RBC Hgb Hct MCV MCH RDW Plt Count Lymph % (Auto) [place] % (Auto) Eos % (Auto) Seg Neutrophils % Seg Neuts % (Manual) Lymphocytes % (Manual) Seg Neutrophils # Seg Neutrophils # Man Lymphocytes # (Manual) APTT POC ABG pH ABG pH POC ABG pCO2 POC ABG pO2 ABG pO2 ABG HCO3 ABG Base Excess ABG Hemoglobin VBG pH Oxyhemoglobin Sodium Potassium Chloride Carbon Dioxide BUN Creatinine Glucose POC Glucose 215 H 222 H 210 H Lactic Acid Calcium AST Alkaline Phosphatase CK-MB (CK-2) CK-MB (CK-2) Rel Index Albumin TSH Urine WBC (Auto) Salicylates 01/25/17 01/25/17 01/26/17 11:52 17:37 00:02 WBC RBC Hgb Hct MCV MCH RDW Plt Count Lymph % (Auto) [place] % (Auto) Eos % (Auto) Seg Neutrophils % Seg Neuts % (Manual) Lymphocytes % (Manual) Seg Neutrophils # Seg Neutrophils # Man Lymphocytes # (Manual) APTT POC ABG pH ABG pH POC ABG pCO2 POC ABG pO2 ABG pO2 ABG HCO3 ABG Base Excess ABG Hemoglobin VBG pH Oxyhemoglobin Sodium Potassium Chloride Carbon Dioxide BUN Creatinine Glucose POC Glucose 284 H 218 H 192 H Lactic Acid Calcium AST Alkaline Phosphatase CK-MB (CK-2) CK-MB (CK-2) Rel Index Albumin TSH Urine WBC (Auto) Salicylates 01/26/17 01/26/17 01/26/17 05:33 12:17 17:50 WBC RBC Hgb Hct MCV MCH RDW Plt Count Lymph % (Auto) [place] % (Auto) Eos % (Auto) Seg Neutrophils % Seg Neuts % (Manual) Lymphocytes % (Manual) Seg Neutrophils # Seg Neutrophils # Man Lymphocytes # (Manual) APTT POC ABG pH ABG pH POC ABG pCO2 POC ABG pO2 ABG pO2 ABG HCO3 ABG Base Excess ABG Hemoglobin VBG pH Oxyhemoglobin Sodium Potassium Chloride Carbon Dioxide BUN Creatinine Glucose POC Glucose 199 H 227 H 229 H Lactic Acid Calcium AST Alkaline Phosphatase CK-MB (CK-2) CK-MB (CK-2) Rel Index Albumin TSH Urine WBC (Auto) Salicylates 01/26/17 01/27/17 01/27/17 23:57 05:31 11:42 WBC RBC Hgb Hct MCV MCH RDW Plt Count Lymph % (Auto) [place] % (Auto) Eos % (Auto) Seg Neutrophils % Seg Neuts % (Manual) Lymphocytes % (Manual) Seg Neutrophils # Seg Neutrophils # Man Lymphocytes # (Manual) APTT POC ABG pH ABG pH POC ABG pCO2 POC ABG pO2 ABG pO2 ABG HCO3 ABG Base Excess ABG Hemoglobin VBG pH Oxyhemoglobin Sodium Potassium Chloride Carbon Dioxide BUN Creatinine Glucose POC Glucose 186 H 285 H 260 H Lactic Acid Calcium AST Alkaline Phosphatase CK-MB (CK-2) CK-MB (CK-2) Rel Index Albumin TSH Urine WBC (Auto) Salicylates 01/27/17 01/27/17 01/27/17 17:47 23:58 Unknown WBC 12.1 H RBC 3.28 L Hgb 8.5 L Hct 25.5 L MCV 78 L MCH 26 L RDW 16.8 H Plt Count 601 H Lymph % (Auto) [place] % (Auto) Eos % (Auto) Seg Neutrophils % Seg Neuts % (Manual) Lymphocytes % (Manual) Seg Neutrophils # Seg Neutrophils # Man Lymphocytes # (Manual) APTT POC ABG pH ABG pH POC ABG pCO2 POC ABG pO2 ABG pO2 ABG HCO3 ABG Base Excess ABG Hemoglobin VBG pH Oxyhemoglobin Sodium Potassium Chloride Carbon Dioxide BUN Creatinine Glucose POC Glucose 329 H 225 H Lactic Acid Calcium AST Alkaline Phosphatase CK-MB (CK-2) CK-MB (CK-2) Rel Index Albumin TSH Urine WBC (Auto) Salicylates 01/27/17 01/28/17 01/28/17 Unknown 03:44 03:44 WBC RBC 3.14 L Hgb 8.2 L Hct 24.1 L MCV 77 L MCH 26 L RDW 16.9 H Plt Count 567 H Lymph % (Auto) [place] % (Auto) Eos % (Auto) Seg Neutrophils % Seg Neuts % (Manual) Lymphocytes % (Manual) Seg Neutrophils # Seg Neutrophils # Man Lymphocytes # (Manual) APTT POC ABG pH ABG pH POC ABG pCO2 POC ABG pO2 ABG pO2 ABG HCO3 ABG Base Excess ABG Hemoglobin VBG pH Oxyhemoglobin Sodium 128 L Potassium 5.4 H Chloride 87.5 L Carbon Dioxide BUN 44 H 42 H Creatinine Glucose 250 H 128 H POC Glucose Lactic Acid Calcium AST Alkaline Phosphatase CK-MB (CK-2) CK-MB (CK-2) Rel Index Albumin TSH Urine WBC (Auto) Salicylates 01/28/17 01/28/17 01/28/17 11:43 16:47 17:52 WBC RBC Hgb Hct MCV MCH RDW Plt Count Lymph % (Auto) [place] % (Auto) Eos % (Auto) Seg Neutrophils % Seg Neuts % (Manual) Lymphocytes % (Manual) Seg Neutrophils # Seg Neutrophils # Man Lymphocytes # (Manual) APTT POC ABG pH ABG pH POC ABG pCO2 POC ABG pO2 ABG pO2 ABG HCO3 ABG Base Excess ABG Hemoglobin VBG pH Oxyhemoglobin Sodium Potassium Chloride Carbon Dioxide BUN Creatinine Glucose POC Glucose 351 H 249 H Lactic Acid Calcium AST Alkaline Phosphatase CK-MB (CK-2) CK-MB (CK-2) Rel Index Albumin TSH Urine WBC (Auto) > 182.0 H Salicylates 01/29/17 01/29/17 01/29/17 05:25 05:25 09:32 WBC 13.6 H RBC 3.25 L Hgb 8.3 L Hct 25.1 L MCV 77 L MCH 26 L RDW 16.8 H Plt Count 514 H Lymph % (Auto) [place] % (Auto) Eos % (Auto) Seg Neutrophils % Seg Neuts % (Manual) Lymphocytes % (Manual) Seg Neutrophils # Seg Neutrophils # Man Lymphocytes # (Manual) APTT POC ABG pH ABG pH POC ABG pCO2 POC ABG pO2 ABG pO2 ABG HCO3 ABG Base Excess ABG Hemoglobin VBG pH Oxyhemoglobin Sodium Potassium Chloride 97.8 L Carbon Dioxide BUN 34 H Creatinine Glucose 222 H POC Glucose Lactic Acid 2.50 H* Calcium AST Alkaline Phosphatase CK-MB (CK-2) CK-MB (CK-2) Rel Index Albumin TSH Urine WBC (Auto) Salicylates 01/29/17 01/29/17 01/29/17 11:56 18:11 23:55 WBC RBC Hgb Hct MCV MCH RDW Plt Count Lymph % (Auto) [place] % (Auto) Eos % (Auto) Seg Neutrophils % Seg Neuts % (Manual) Lymphocytes % (Manual) Seg Neutrophils # Seg Neutrophils # Man Lymphocytes # (Manual) APTT POC ABG pH ABG pH POC ABG pCO2 POC ABG pO2 ABG pO2 ABG HCO3 ABG Base Excess ABG Hemoglobin VBG pH Oxyhemoglobin Sodium Potassium Chloride Carbon Dioxide BUN Creatinine Glucose POC Glucose 261 H 215 H 176 H Lactic Acid Calcium AST Alkaline Phosphatase CK-MB (CK-2) CK-MB (CK-2) Rel Index Albumin TSH Urine WBC (Auto) Salicylates 01/30/17 01/30/17 01/30/17 05:31 05:31 05:34 WBC 15.2 H RBC 3.09 L Hgb 7.9 L Hct 23.9 L MCV 77 L MCH 26 L RDW 16.9 H Plt Count 569 H Lymph % (Auto) [place] % (Auto) Eos % (Auto) Seg Neutrophils % Seg Neuts % (Manual) Lymphocytes % (Manual) Seg Neutrophils # Seg Neutrophils # Man Lymphocytes # (Manual) APTT POC ABG pH ABG pH POC ABG pCO2 POC ABG pO2 ABG pO2 ABG HCO3 ABG Base Excess ABG Hemoglobin VBG pH Oxyhemoglobin Sodium Potassium Chloride Carbon Dioxide BUN 24 H Creatinine Glucose 235 H POC Glucose 243 H Lactic Acid Calcium AST Alkaline Phosphatase CK-MB (CK-2) CK-MB (CK-2) Rel Index Albumin TSH Urine WBC (Auto) Salicylates 01/30/17 01/30/17 01/30/17 11:38 17:58 23:29 WBC RBC Hgb Hct MCV MCH RDW Plt Count Lymph % (Auto) [place] % (Auto) Eos % (Auto) Seg Neutrophils % Seg Neuts % (Manual) Lymphocytes % (Manual) Seg Neutrophils # Seg Neutrophils # Man Lymphocytes # (Manual) APTT POC ABG pH ABG pH POC ABG pCO2 POC ABG pO2 ABG pO2 ABG HCO3 ABG Base Excess ABG Hemoglobin VBG pH Oxyhemoglobin Sodium Potassium Chloride Carbon Dioxide BUN Creatinine Glucose POC Glucose 298 H 208 H 245 H Lactic Acid Calcium AST Alkaline Phosphatase CK-MB (CK-2) CK-MB (CK-2) Rel Index Albumin TSH Urine WBC (Auto) Salicylates 01/31/17 01/31/17 01/31/17 04:39 04:39 05:57 WBC 11.4 H RBC 3.22 L Hgb 8.2 L Hct 24.9 L MCV 78 L MCH 25 L RDW 17.2 H Plt Count 576 H Lymph % (Auto) [place] % (Auto) Eos % (Auto) Seg Neutrophils % Seg Neuts % (Manual) Lymphocytes % (Manual) Seg Neutrophils # Seg Neutrophils # Man Lymphocytes # (Manual) APTT POC ABG pH ABG pH POC ABG pCO2 POC ABG pO2 ABG pO2 ABG HCO3 ABG Base Excess ABG Hemoglobin VBG pH Oxyhemoglobin Sodium Potassium Chloride Carbon Dioxide BUN Creatinine 0.7 L Glucose 223 H POC Glucose 264 H Lactic Acid Calcium AST Alkaline Phosphatase CK-MB (CK-2) CK-MB (CK-2) Rel Index Albumin TSH Urine WBC (Auto) Salicylates 01/31/17 01/31/17 01/31/17 12:23 17:41 18:55 WBC RBC Hgb Hct MCV MCH RDW Plt Count Lymph % (Auto) [place] % (Auto) Eos % (Auto) Seg Neutrophils % Seg Neuts % (Manual) Lymphocytes % (Manual) Seg Neutrophils # Seg Neutrophils # Man Lymphocytes # (Manual) APTT POC ABG pH ABG pH POC ABG pCO2 32.8 L POC ABG pO2 ABG pO2 ABG HCO3 ABG Base Excess ABG Hemoglobin VBG pH Oxyhemoglobin Sodium Potassium Chloride Carbon Dioxide BUN Creatinine Glucose POC Glucose 252 H 208 H Lactic Acid Calcium AST Alkaline Phosphatase CK-MB (CK-2) CK-MB (CK-2) Rel Index Albumin TSH Urine WBC (Auto) Salicylates 01/31/17 02/01/17 02/01/17 22:59 03:38 03:38 WBC RBC 2.81 L Hgb 7.4 L Hct 22.1 L MCV 79 L MCH 27 L RDW 17.0 H Plt Count 540 H Lymph % (Auto) [place] % (Auto) Eos % (Auto) Seg Neutrophils % Seg Neuts % (Manual) Lymphocytes % (Manual) Seg Neutrophils # Seg Neutrophils # Man Lymphocytes # (Manual) APTT POC ABG pH ABG pH POC ABG pCO2 POC ABG pO2 ABG pO2 ABG HCO3 ABG Base Excess ABG Hemoglobin VBG pH Oxyhemoglobin Sodium Potassium Chloride Carbon Dioxide 21 L BUN Creatinine 0.7 L Glucose POC Glucose 40 L Lactic Acid Calcium AST Alkaline Phosphatase CK-MB (CK-2) CK-MB (CK-2) Rel Index Albumin TSH Urine WBC (Auto) Salicylates 02/01/17 02/01/17 02/01/17 05:17 12:19 16:44 WBC RBC Hgb Hct MCV MCH RDW Plt Count Lymph % (Auto) [place] % (Auto) Eos % (Auto) Seg Neutrophils % Seg Neuts % (Manual) Lymphocytes % (Manual) Seg Neutrophils # Seg Neutrophils # Man Lymphocytes # (Manual) APTT POC ABG pH ABG pH POC ABG pCO2 POC ABG pO2 ABG pO2 ABG HCO3 ABG Base Excess ABG Hemoglobin VBG pH Oxyhemoglobin Sodium Potassium Chloride Carbon Dioxide BUN Creatinine Glucose POC Glucose 140 H 213 H 172 H Lactic Acid Calcium AST Alkaline Phosphatase CK-MB (CK-2) CK-MB (CK-2) Rel Index Albumin TSH Urine WBC (Auto) Salicylates 02/01/17 02/02/17 02/02/17 23:59 05:14 11:24 WBC RBC Hgb Hct MCV MCH RDW Plt Count Lymph % (Auto) [place] % (Auto) Eos % (Auto) Seg Neutrophils % Seg Neuts % (Manual) Lymphocytes % (Manual) Seg Neutrophils # Seg Neutrophils # Man Lymphocytes # (Manual) APTT POC ABG pH ABG pH POC ABG pCO2 POC ABG pO2 ABG pO2 ABG HCO3 ABG Base Excess ABG Hemoglobin VBG pH Oxyhemoglobin Sodium Potassium Chloride Carbon Dioxide BUN Creatinine Glucose POC Glucose 181 H 194 H 209 H Lactic Acid Calcium AST Alkaline Phosphatase CK-MB (CK-2) CK-MB (CK-2) Rel Index Albumin TSH Urine WBC (Auto) Salicylates 02/02/17 02/02/17 02/02/17 11:46 11:46 17:47 WBC RBC 2.94 L Hgb 7.5 L Hct 23.0 L MCV 78 L MCH 25 L RDW 16.9 H Plt Count 520 H Lymph % (Auto) [place] % (Auto) Eos % (Auto) Seg Neutrophils % Seg Neuts % (Manual) Lymphocytes % (Manual) Seg Neutrophils # Seg Neutrophils # Man Lymphocytes # (Manual) APTT POC ABG pH ABG pH POC ABG pCO2 POC ABG pO2 ABG pO2 ABG HCO3 ABG Base Excess ABG Hemoglobin VBG pH Oxyhemoglobin Sodium Potassium Chloride Carbon Dioxide BUN Creatinine 0.6 L Glucose 189 H POC Glucose 147 H Lactic Acid Calcium 8.1 L AST Alkaline Phosphatase CK-MB (CK-2) CK-MB (CK-2) Rel Index Albumin TSH Urine WBC (Auto) Salicylates 02/02/17 02/03/17 02/03/17 23:32 05:53 11:19 WBC RBC Hgb Hct MCV MCH RDW Plt Count Lymph % (Auto) [place] % (Auto) Eos % (Auto) Seg Neutrophils % Seg Neuts % (Manual) Lymphocytes % (Manual) Seg Neutrophils # Seg Neutrophils # Man Lymphocytes # (Manual) APTT POC ABG pH ABG pH POC ABG pCO2 POC ABG pO2 ABG pO2 ABG HCO3 ABG Base Excess ABG Hemoglobin VBG pH Oxyhemoglobin Sodium Potassium Chloride Carbon Dioxide BUN Creatinine Glucose POC Glucose 176 H 224 H 228 H Lactic Acid Calcium AST Alkaline Phosphatase CK-MB (CK-2) CK-MB (CK-2) Rel Index Albumin TSH Urine WBC (Auto) Salicylates 02/03/17 02/03/17 02/04/17 16:59 23:38 05:45 WBC RBC Hgb Hct MCV MCH RDW Plt Count Lymph % (Auto) [place] % (Auto) Eos % (Auto) Seg Neutrophils % Seg Neuts % (Manual) Lymphocytes % (Manual) Seg Neutrophils # Seg Neutrophils # Man Lymphocytes # (Manual) APTT POC ABG pH ABG pH POC ABG pCO2 POC ABG pO2 ABG pO2 ABG HCO3 ABG Base Excess ABG Hemoglobin VBG pH Oxyhemoglobin Sodium Potassium Chloride Carbon Dioxide BUN Creatinine Glucose POC Glucose 189 H 191 H 251 H Lactic Acid Calcium AST Alkaline Phosphatase CK-MB (CK-2) CK-MB (CK-2) Rel Index Albumin TSH Urine WBC (Auto) Salicylates 02/04/17 02/04/17 02/05/17 11:20 17:20 00:17 WBC RBC Hgb Hct MCV MCH RDW Plt Count Lymph % (Auto) [place] % (Auto) Eos % (Auto) Seg Neutrophils % Seg Neuts % (Manual) Lymphocytes % (Manual) Seg Neutrophils # Seg Neutrophils # Man Lymphocytes # (Manual) APTT POC ABG pH ABG pH POC ABG pCO2 POC ABG pO2 ABG pO2 ABG HCO3 ABG Base Excess ABG Hemoglobin VBG pH Oxyhemoglobin Sodium Potassium Chloride Carbon Dioxide BUN Creatinine Glucose POC Glucose 243 H 163 H 200 H Lactic Acid Calcium AST Alkaline Phosphatase CK-MB (CK-2) CK-MB (CK-2) Rel Index Albumin TSH Urine WBC (Auto) Salicylates 02/05/17 02/05/17 02/05/17 05:38 12:38 16:29 WBC RBC Hgb Hct MCV MCH RDW Plt Count Lymph % (Auto) [place] % (Auto) Eos % (Auto) Seg Neutrophils % Seg Neuts % (Manual) Lymphocytes % (Manual) Seg Neutrophils # Seg Neutrophils # Man Lymphocytes # (Manual) APTT POC ABG pH ABG pH POC ABG pCO2 POC ABG pO2 ABG pO2 ABG HCO3 ABG Base Excess ABG Hemoglobin VBG pH Oxyhemoglobin Sodium Potassium Chloride Carbon Dioxide BUN Creatinine Glucose POC Glucose 248 H 241 H 257 H Lactic Acid Calcium AST Alkaline Phosphatase CK-MB (CK-2) CK-MB (CK-2) Rel Index Albumin TSH Urine WBC (Auto) Salicylates 02/05/17 02/06/17 02/06/17 23:56 05:30 11:50 WBC RBC Hgb Hct MCV MCH RDW Plt Count Lymph % (Auto) [place] % (Auto) Eos % (Auto) Seg Neutrophils % Seg Neuts % (Manual) Lymphocytes % (Manual) Seg Neutrophils # Seg Neutrophils # Man Lymphocytes # (Manual) APTT POC ABG pH ABG pH POC ABG pCO2 POC ABG pO2 ABG pO2 ABG HCO3 ABG Base Excess ABG Hemoglobin VBG pH Oxyhemoglobin Sodium Potassium Chloride Carbon Dioxide BUN Creatinine Glucose POC Glucose 258 H 120 H 254 H Lactic Acid Calcium AST Alkaline Phosphatase CK-MB (CK-2) CK-MB (CK-2) Rel Index Albumin TSH Urine WBC (Auto) Salicylates 02/06/17 02/06/17 02/07/17 17:11 23:50 05:22 WBC RBC Hgb Hct MCV MCH RDW Plt Count Lymph % (Auto) [place] % (Auto) Eos % (Auto) Seg Neutrophils % Seg Neuts % (Manual) Lymphocytes % (Manual) Seg Neutrophils # Seg Neutrophils # Man Lymphocytes # (Manual) APTT POC ABG pH ABG pH POC ABG pCO2 POC ABG pO2 ABG pO2 ABG HCO3 ABG Base Excess ABG Hemoglobin VBG pH Oxyhemoglobin Sodium Potassium Chloride Carbon Dioxide BUN Creatinine Glucose POC Glucose 149 H 240 H 258 H Lactic Acid Calcium AST Alkaline Phosphatase CK-MB (CK-2) CK-MB (CK-2) Rel Index Albumin TSH Urine WBC (Auto) Salicylates 02/07/17 02/07/17 02/07/17 11:15 18:33 23:59 WBC RBC Hgb Hct MCV MCH RDW Plt Count Lymph % (Auto) [place] % (Auto) Eos % (Auto) Seg Neutrophils % Seg Neuts % (Manual) Lymphocytes % (Manual) Seg Neutrophils # Seg Neutrophils # Man Lymphocytes # (Manual) APTT POC ABG pH ABG pH POC ABG pCO2 POC ABG pO2 ABG pO2 ABG HCO3 ABG Base Excess ABG Hemoglobin VBG pH Oxyhemoglobin Sodium Potassium Chloride Carbon Dioxide BUN Creatinine Glucose POC Glucose 239 H 176 H 186 H Lactic Acid Calcium AST Alkaline Phosphatase CK-MB (CK-2) CK-MB (CK-2) Rel Index Albumin TSH Urine WBC (Auto) Salicylates 02/08/17 02/08/17 02/08/17 06:15 11:55 16:55 WBC RBC Hgb Hct MCV MCH RDW Plt Count Lymph % (Auto) [place] % (Auto) Eos % (Auto) Seg Neutrophils % Seg Neuts % (Manual) Lymphocytes % (Manual) Seg Neutrophils # Seg Neutrophils # Man Lymphocytes # (Manual) APTT POC ABG pH ABG pH POC ABG pCO2 POC ABG pO2 ABG pO2 ABG HCO3 ABG Base Excess ABG Hemoglobin VBG pH Oxyhemoglobin Sodium Potassium Chloride Carbon Dioxide BUN Creatinine Glucose POC Glucose 195 H 129 H 246 H Lactic Acid Calcium AST Alkaline Phosphatase CK-MB (CK-2) CK-MB (CK-2) Rel Index Albumin TSH Urine WBC (Auto) Salicylates 02/08/17 02/09/17 02/09/17 23:51 05:51 07:24 WBC 14.7 H RBC 3.39 L Hgb 8.9 L Hct 26.4 L MCV 78 L MCH 26 L RDW 18.4 H Plt Count 670 H Lymph % (Auto) 11.8 L [place] % (Auto) Eos % (Auto) Seg Neutrophils % 81.2 H Seg Neuts % (Manual) Lymphocytes % (Manual) Seg Neutrophils # 11.9 H Seg Neutrophils # Man Lymphocytes # (Manual) APTT POC ABG pH ABG pH POC ABG pCO2 POC ABG pO2 ABG pO2 ABG HCO3 ABG Base Excess ABG Hemoglobin VBG pH Oxyhemoglobin Sodium Potassium Chloride Carbon Dioxide BUN Creatinine Glucose POC Glucose 262 H 295 H Lactic Acid Calcium AST Alkaline Phosphatase CK-MB (CK-2) CK-MB (CK-2) Rel Index Albumin TSH Urine WBC (Auto) Salicylates 02/09/17 02/09/17 02/09/17 07:24 12:08 18:39 WBC RBC Hgb Hct MCV MCH RDW Plt Count Lymph % (Auto) [place] % (Auto) Eos % (Auto) Seg Neutrophils % Seg Neuts % (Manual) Lymphocytes % (Manual) Seg Neutrophils # Seg Neutrophils # Man Lymphocytes # (Manual) APTT POC ABG pH ABG pH POC ABG pCO2 POC ABG pO2 ABG pO2 ABG HCO3 ABG Base Excess ABG Hemoglobin VBG pH Oxyhemoglobin Sodium Potassium Chloride 95.5 L Carbon Dioxide BUN 52 H Creatinine Glucose 277 H POC Glucose 236 H 151 H Lactic Acid Calcium AST Alkaline Phosphatase CK-MB (CK-2) CK-MB (CK-2) Rel Index Albumin TSH Urine WBC (Auto) Salicylates 02/10/17 02/10/17 02/10/17 00:01 05:44 11:21 WBC RBC Hgb Hct MCV MCH RDW Plt Count Lymph % (Auto) [place] % (Auto) Eos % (Auto) Seg Neutrophils % Seg Neuts % (Manual) Lymphocytes % (Manual) Seg Neutrophils # Seg Neutrophils # Man Lymphocytes # (Manual) APTT POC ABG pH ABG pH POC ABG pCO2 POC ABG pO2 ABG pO2 ABG HCO3 ABG Base Excess ABG Hemoglobin VBG pH Oxyhemoglobin Sodium Potassium Chloride Carbon Dioxide BUN Creatinine Glucose POC Glucose 210 H 201 H 233 H Lactic Acid Calcium AST Alkaline Phosphatase CK-MB (CK-2) CK-MB (CK-2) Rel Index Albumin TSH Urine WBC (Auto) Salicylates 02/10/17 02/10/17 02/11/17 17:29 23:56 05:24 WBC RBC Hgb Hct MCV MCH RDW Plt Count Lymph % (Auto) [place] % (Auto) Eos % (Auto) Seg Neutrophils % Seg Neuts % (Manual) Lymphocytes % (Manual) Seg Neutrophils # Seg Neutrophils # Man Lymphocytes # (Manual) APTT POC ABG pH ABG pH POC ABG pCO2 POC ABG pO2 ABG pO2 ABG HCO3 ABG Base Excess ABG Hemoglobin VBG pH Oxyhemoglobin Sodium Potassium Chloride Carbon Dioxide BUN Creatinine Glucose POC Glucose 167 H 191 H 135 H Lactic Acid Calcium AST Alkaline Phosphatase CK-MB (CK-2) CK-MB (CK-2) Rel Index Albumin TSH Urine WBC (Auto) Salicylates 02/11/17 02/11/17 02/11/17 12:25 17:03 23:59 WBC RBC Hgb Hct MCV MCH RDW Plt Count Lymph % (Auto) [place] % (Auto) Eos % (Auto) Seg Neutrophils % Seg Neuts % (Manual) Lymphocytes % (Manual) Seg Neutrophils # Seg Neutrophils # Man Lymphocytes # (Manual) APTT POC ABG pH ABG pH POC ABG pCO2 POC ABG pO2 ABG pO2 ABG HCO3 ABG Base Excess ABG Hemoglobin VBG pH Oxyhemoglobin Sodium Potassium Chloride Carbon Dioxide BUN Creatinine Glucose POC Glucose 275 H 172 H 215 H Lactic Acid Calcium AST Alkaline Phosphatase CK-MB (CK-2) CK-MB (CK-2) Rel Index Albumin TSH Urine WBC (Auto) Salicylates 02/12/17 02/12/17 02/12/17 05:39 11:33 17:55 WBC RBC Hgb Hct MCV MCH RDW Plt Count Lymph % (Auto) [place] % (Auto) Eos % (Auto) Seg Neutrophils % Seg Neuts % (Manual) Lymphocytes % (Manual) Seg Neutrophils # Seg Neutrophils # Man Lymphocytes # (Manual) APTT POC ABG pH ABG pH POC ABG pCO2 POC ABG pO2 ABG pO2 ABG HCO3 ABG Base Excess ABG Hemoglobin VBG pH Oxyhemoglobin Sodium Potassium Chloride Carbon Dioxide BUN Creatinine Glucose POC Glucose 261 H 217 H 172 H Lactic Acid Calcium AST Alkaline Phosphatase CK-MB (CK-2) CK-MB (CK-2) Rel Index Albumin TSH Urine WBC (Auto) Salicylates 02/13/17 02/13/17 02/13/17 00:25 06:46 11:26 WBC RBC Hgb Hct MCV MCH RDW Plt Count Lymph % (Auto) [place] % (Auto) Eos % (Auto) Seg Neutrophils % Seg Neuts % (Manual) Lymphocytes % (Manual) Seg Neutrophils # Seg Neutrophils # Man Lymphocytes # (Manual) APTT POC ABG pH ABG pH POC ABG pCO2 POC ABG pO2 ABG pO2 ABG HCO3 ABG Base Excess ABG Hemoglobin VBG pH Oxyhemoglobin Sodium Potassium Chloride Carbon Dioxide BUN Creatinine Glucose POC Glucose 207 H 219 H 231 H Lactic Acid Calcium AST Alkaline Phosphatase CK-MB (CK-2) CK-MB (CK-2) Rel Index Albumin TSH Urine WBC (Auto) Salicylates 02/13/17 02/13/17 02/14/17 17:12 23:44 05:44 WBC RBC Hgb Hct MCV MCH RDW Plt Count Lymph % (Auto) [place] % (Auto) Eos % (Auto) Seg Neutrophils % Seg Neuts % (Manual) Lymphocytes % (Manual) Seg Neutrophils # Seg Neutrophils # Man Lymphocytes # (Manual) APTT POC ABG pH ABG pH POC ABG pCO2 POC ABG pO2 ABG pO2 ABG HCO3 ABG Base Excess ABG Hemoglobin VBG pH Oxyhemoglobin Sodium Potassium Chloride Carbon Dioxide BUN Creatinine Glucose POC Glucose 190 H 256 H 184 H Lactic Acid Calcium AST Alkaline Phosphatase CK-MB (CK-2) CK-MB (CK-2) Rel Index Albumin TSH Urine WBC (Auto) Salicylates 02/14/17 02/14/17 02/14/17 12:21 17:57 23:18 WBC RBC Hgb Hct MCV MCH RDW Plt Count Lymph % (Auto) [place] % (Auto) Eos % (Auto) Seg Neutrophils % Seg Neuts % (Manual) Lymphocytes % (Manual) Seg Neutrophils # Seg Neutrophils # Man Lymphocytes # (Manual) APTT POC ABG pH ABG pH POC ABG pCO2 POC ABG pO2 ABG pO2 ABG HCO3 ABG Base Excess ABG Hemoglobin VBG pH Oxyhemoglobin Sodium Potassium Chloride Carbon Dioxide BUN Creatinine Glucose POC Glucose 233 H 155 H 165 H Lactic Acid Calcium AST Alkaline Phosphatase CK-MB (CK-2) CK-MB (CK-2) Rel Index Albumin TSH Urine WBC (Auto) Salicylates 02/15/17 02/15/17 02/15/17 05:33 11:45 17:20 WBC RBC Hgb Hct MCV MCH RDW Plt Count Lymph % (Auto) [place] % (Auto) Eos % (Auto) Seg Neutrophils % Seg Neuts % (Manual) Lymphocytes % (Manual) Seg Neutrophils # Seg Neutrophils # Man Lymphocytes # (Manual) APTT POC ABG pH ABG pH POC ABG pCO2 POC ABG pO2 ABG pO2 ABG HCO3 ABG Base Excess ABG Hemoglobin VBG pH Oxyhemoglobin Sodium Potassium Chloride Carbon Dioxide BUN Creatinine Glucose POC Glucose 239 H 130 H 189 H Lactic Acid Calcium AST Alkaline Phosphatase CK-MB (CK-2) CK-MB (CK-2) Rel Index Albumin TSH Urine WBC (Auto) Salicylates 02/16/17 02/16/17 02/16/17 00:14 05:09 12:31 WBC RBC Hgb Hct MCV MCH RDW Plt Count Lymph % (Auto) [place] % (Auto) Eos % (Auto) Seg Neutrophils % Seg Neuts % (Manual) Lymphocytes % (Manual) Seg Neutrophils # Seg Neutrophils # Man Lymphocytes # (Manual) APTT POC ABG pH ABG pH POC ABG pCO2 POC ABG pO2 ABG pO2 ABG HCO3 ABG Base Excess ABG Hemoglobin VBG pH Oxyhemoglobin Sodium Potassium Chloride Carbon Dioxide BUN Creatinine Glucose POC Glucose 197 H 226 H 178 H Lactic Acid Calcium AST Alkaline Phosphatase CK-MB (CK-2) CK-MB (CK-2) Rel Index Albumin TSH Urine WBC (Auto) Salicylates 02/16/17 02/16/17 02/17/17 16:35 23:49 05:37 WBC RBC Hgb Hct MCV MCH RDW Plt Count Lymph % (Auto) [place] % (Auto) Eos % (Auto) Seg Neutrophils % Seg Neuts % (Manual) Lymphocytes % (Manual) Seg Neutrophils # Seg Neutrophils # Man Lymphocytes # (Manual) APTT POC ABG pH ABG pH POC ABG pCO2 POC ABG pO2 ABG pO2 ABG HCO3 ABG Base Excess ABG Hemoglobin VBG pH Oxyhemoglobin Sodium Potassium Chloride Carbon Dioxide BUN Creatinine Glucose POC Glucose 174 H 62 L 153 H Lactic Acid Calcium AST Alkaline Phosphatase CK-MB (CK-2) CK-MB (CK-2) Rel Index Albumin TSH Urine WBC (Auto) Salicylates 02/17/17 02/17/17 02/17/17 11:39 17:02 22:24 WBC RBC Hgb Hct MCV MCH RDW Plt Count Lymph % (Auto) [place] % (Auto) Eos % (Auto) Seg Neutrophils % Seg Neuts % (Manual) Lymphocytes % (Manual) Seg Neutrophils # Seg Neutrophils # Man Lymphocytes # (Manual) APTT POC ABG pH ABG pH POC ABG pCO2 POC ABG pO2 ABG pO2 ABG HCO3 ABG Base Excess ABG Hemoglobin VBG pH Oxyhemoglobin Sodium Potassium Chloride Carbon Dioxide BUN Creatinine Glucose POC Glucose 231 H 112 H 116 H Lactic Acid Calcium AST Alkaline Phosphatase CK-MB (CK-2) CK-MB (CK-2) Rel Index Albumin TSH Urine WBC (Auto) Salicylates 02/18/17 02/19/17 02/19/17 15:34 05:09 07:57 WBC RBC Hgb Hct MCV MCH RDW Plt Count Lymph % (Auto) [place] % (Auto) Eos % (Auto) Seg Neutrophils % Seg Neuts % (Manual) Lymphocytes % (Manual) Seg Neutrophils # Seg Neutrophils # Man Lymphocytes # (Manual) APTT POC ABG pH ABG pH POC ABG pCO2 POC ABG pO2 ABG pO2 ABG HCO3 ABG Base Excess ABG Hemoglobin VBG pH Oxyhemoglobin Sodium Potassium Chloride Carbon Dioxide BUN Creatinine Glucose POC Glucose 215 H 218 H 283 H Lactic Acid Calcium AST Alkaline Phosphatase CK-MB (CK-2) CK-MB (CK-2) Rel Index Albumin TSH Urine WBC (Auto) Salicylates 1102/19/17 02/20/17 14:49 22:10 05:10 WBC RBC Hgb Hct MCV MCH RDW Plt Count Lymph % (Auto) [place] % (Auto) Eos % (Auto) Seg Neutrophils % Seg Neuts % (Manual) Lymphocytes % (Manual) Seg Neutrophils # Seg Neutrophils # Man Lymphocytes # (Manual) APTT POC ABG pH ABG pH POC ABG pCO2 POC ABG pO2 ABG pO2 ABG HCO3 ABG Base Excess ABG Hemoglobin VBG pH Oxyhemoglobin Sodium Potassium Chloride Carbon Dioxide BUN Creatinine Glucose POC Glucose 290 H 169 H 209 H Lactic Acid Calcium AST Alkaline Phosphatase CK-MB (CK-2) CK-MB (CK-2) Rel Index Albumin TSH Urine WBC (Auto) Salicylates 02/20/17 02/20/17 02/21/17 15:05 21:52 02:00 WBC RBC Hgb Hct MCV MCH RDW Plt Count Lymph % (Auto) [place] % (Auto) Eos % (Auto) Seg Neutrophils % Seg Neuts % (Manual) Lymphocytes % (Manual) Seg Neutrophils # Seg Neutrophils # Man Lymphocytes # (Manual) APTT POC ABG pH ABG pH POC ABG pCO2 POC ABG pO2 ABG pO2 ABG HCO3 ABG Base Excess ABG Hemoglobin VBG pH Oxyhemoglobin Sodium Potassium Chloride Carbon Dioxide BUN Creatinine Glucose POC Glucose 172 H 209 H 216 H Lactic Acid Calcium AST Alkaline Phosphatase CK-MB (CK-2) CK-MB (CK-2) Rel Index Albumin TSH Urine WBC (Auto) Salicylates 02/21/17 02/21/17 02/21/17 04:54 14:43 17:47 WBC RBC Hgb Hct MCV MCH RDW Plt Count Lymph % (Auto) [place] % (Auto) Eos % (Auto) Seg Neutrophils % Seg Neuts % (Manual) Lymphocytes % (Manual) Seg Neutrophils # Seg Neutrophils # Man Lymphocytes # (Manual) APTT POC ABG pH ABG pH POC ABG pCO2 POC ABG pO2 ABG pO2 ABG HCO3 ABG Base Excess ABG Hemoglobin VBG pH Oxyhemoglobin Sodium Potassium Chloride Carbon Dioxide BUN Creatinine Glucose POC Glucose 227 H 290 H 220 H Lactic Acid Calcium AST Alkaline Phosphatase CK-MB (CK-2) CK-MB (CK-2) Rel Index Albumin TSH Urine WBC (Auto) Salicylates 02/21/17 02/22/17 02/22/17 22:02 04:52 15:25 WBC RBC Hgb Hct MCV MCH RDW Plt Count Lymph % (Auto) [place] % (Auto) Eos % (Auto) Seg Neutrophils % Seg Neuts % (Manual) Lymphocytes % (Manual) Seg Neutrophils # Seg Neutrophils # Man Lymphocytes # (Manual) APTT POC ABG pH ABG pH POC ABG pCO2 POC ABG pO2 ABG pO2 ABG HCO3 ABG Base Excess ABG Hemoglobin VBG pH Oxyhemoglobin Sodium Potassium Chloride Carbon Dioxide BUN Creatinine Glucose POC Glucose 246 H 212 H 236 H Lactic Acid Calcium AST Alkaline Phosphatase CK-MB (CK-2) CK-MB (CK-2) Rel Index Albumin TSH Urine WBC (Auto) Salicylates 02/22/17 02/23/17 02/23/17 21:33 06:04 10:00 WBC RBC Hgb Hct MCV MCH RDW Plt Count Lymph % (Auto) [place] % (Auto) Eos % (Auto) Seg Neutrophils % Seg Neuts % (Manual) Lymphocytes % (Manual) Seg Neutrophils # Seg Neutrophils # Man Lymphocytes # (Manual) APTT POC ABG pH ABG pH POC ABG pCO2 POC ABG pO2 ABG pO2 ABG HCO3 ABG Base Excess ABG Hemoglobin VBG pH Oxyhemoglobin Sodium Potassium Chloride Carbon Dioxide BUN Creatinine Glucose POC Glucose 255 H 208 H 174 H Lactic Acid Calcium AST Alkaline Phosphatase CK-MB (CK-2) CK-MB (CK-2) Rel Index Albumin TSH Urine WBC (Auto) Salicylates 02/23/17 02/23/17 02/23/17 12:52 17:15 21:51 WBC RBC Hgb Hct MCV MCH RDW Plt Count Lymph % (Auto) [place] % (Auto) Eos % (Auto) Seg Neutrophils % Seg Neuts % (Manual) Lymphocytes % (Manual) Seg Neutrophils # Seg Neutrophils # Man Lymphocytes # (Manual) APTT POC ABG pH ABG pH POC ABG pCO2 POC ABG pO2 ABG pO2 ABG HCO3 ABG Base Excess ABG Hemoglobin VBG pH Oxyhemoglobin Sodium Potassium Chloride Carbon Dioxide BUN Creatinine Glucose POC Glucose 203 H 269 H 205 H Lactic Acid Calcium AST Alkaline Phosphatase CK-MB (CK-2) CK-MB (CK-2) Rel Index Albumin TSH Urine WBC (Auto) Salicylates 02/24/17 02/24/17 02/24/17 10:23 17:45 21:24 WBC RBC Hgb Hct MCV MCH RDW Plt Count Lymph % (Auto) [place] % (Auto) Eos % (Auto) Seg Neutrophils % Seg Neuts % (Manual) Lymphocytes % (Manual) Seg Neutrophils # Seg Neutrophils # Man Lymphocytes # (Manual) APTT POC ABG pH ABG pH POC ABG pCO2 POC ABG pO2 ABG pO2 ABG HCO3 ABG Base Excess ABG Hemoglobin VBG pH Oxyhemoglobin Sodium Potassium Chloride Carbon Dioxide BUN Creatinine Glucose POC Glucose 280 H 239 H 254 H Lactic Acid Calcium AST Alkaline Phosphatase CK-MB (CK-2) CK-MB (CK-2) Rel Index Albumin TSH Urine WBC (Auto) Salicylates 02/25/17 02/25/17 02/25/17 02:12 05:17 14:32 WBC RBC Hgb Hct MCV MCH RDW Plt Count Lymph % (Auto) [place] % (Auto) Eos % (Auto) Seg Neutrophils % Seg Neuts % (Manual) Lymphocytes % (Manual) Seg Neutrophils # Seg Neutrophils # Man Lymphocytes # (Manual) APTT POC ABG pH ABG pH POC ABG pCO2 POC ABG pO2 ABG pO2 ABG HCO3 ABG Base Excess ABG Hemoglobin VBG pH Oxyhemoglobin Sodium Potassium Chloride Carbon Dioxide BUN Creatinine Glucose POC Glucose 296 H 332 H 353 H Lactic Acid Calcium AST Alkaline Phosphatase CK-MB (CK-2) CK-MB (CK-2) Rel Index Albumin TSH Urine WBC (Auto) Salicylates 02/25/17 02/26/17 02/26/17 22:14 00:37 05:52 WBC RBC Hgb Hct MCV MCH RDW Plt Count Lymph % (Auto) [place] % (Auto) Eos % (Auto) Seg Neutrophils % Seg Neuts % (Manual) Lymphocytes % (Manual) Seg Neutrophils # Seg Neutrophils # Man Lymphocytes # (Manual) APTT POC ABG pH ABG pH POC ABG pCO2 POC ABG pO2 ABG pO2 ABG HCO3 ABG Base Excess ABG Hemoglobin VBG pH Oxyhemoglobin Sodium Potassium Chloride Carbon Dioxide BUN Creatinine Glucose POC Glucose 201 H 233 H 269 H Lactic Acid Calcium AST Alkaline Phosphatase CK-MB (CK-2) CK-MB (CK-2) Rel Index Albumin TSH Urine WBC (Auto) Salicylates 02/26/17 02/26/17 02/26/17 11:48 13:49 21:26 WBC RBC Hgb Hct MCV MCH RDW Plt Count Lymph % (Auto) [place] % (Auto) Eos % (Auto) Seg Neutrophils % Seg Neuts % (Manual) Lymphocytes % (Manual) Seg Neutrophils # Seg Neutrophils # Man Lymphocytes # (Manual) APTT POC ABG pH ABG pH POC ABG pCO2 POC ABG pO2 ABG pO2 ABG HCO3 ABG Base Excess ABG Hemoglobin VBG pH Oxyhemoglobin Sodium Potassium Chloride Carbon Dioxide BUN Creatinine Glucose POC Glucose 333 H 322 H 244 H Lactic Acid Calcium AST Alkaline Phosphatase CK-MB (CK-2) CK-MB (CK-2) Rel Index Albumin TSH Urine WBC (Auto) Salicylates 02/27/17 02/27/17 02/27/17 05:27 13:51 21:48 WBC RBC Hgb Hct MCV MCH RDW Plt Count Lymph % (Auto) [place] % (Auto) Eos % (Auto) Seg Neutrophils % Seg Neuts % (Manual) Lymphocytes % (Manual) Seg Neutrophils # Seg Neutrophils # Man Lymphocytes # (Manual) APTT POC ABG pH ABG pH POC ABG pCO2 POC ABG pO2 ABG pO2 ABG HCO3 ABG Base Excess ABG Hemoglobin VBG pH Oxyhemoglobin Sodium Potassium Chloride Carbon Dioxide BUN Creatinine Glucose POC Glucose 217 H 239 H 254 H Lactic Acid Calcium AST Alkaline Phosphatase CK-MB (CK-2) CK-MB (CK-2) Rel Index Albumin TSH Urine WBC (Auto) Salicylates 02/28/17 02/28/17 02/28/17 05:38 11:00 19:44 WBC RBC Hgb Hct MCV MCH RDW Plt Count Lymph % (Auto) [place] % (Auto) Eos % (Auto) Seg Neutrophils % Seg Neuts % (Manual) Lymphocytes % (Manual) Seg Neutrophils # Seg Neutrophils # Man Lymphocytes # (Manual) APTT POC ABG pH ABG pH POC ABG pCO2 POC ABG pO2 ABG pO2 ABG HCO3 ABG Base Excess ABG Hemoglobin VBG pH Oxyhemoglobin Sodium Potassium Chloride Carbon Dioxide BUN Creatinine Glucose POC Glucose 325 H 203 H 116 H Lactic Acid Calcium AST Alkaline Phosphatase CK-MB (CK-2) CK-MB (CK-2) Rel Index Albumin TSH Urine WBC (Auto) Salicylates 03/01/17 03/01/17 03/01/17 00:08 05:31 12:17 WBC RBC Hgb Hct MCV MCH RDW Plt Count Lymph % (Auto) [place] % (Auto) Eos % (Auto) Seg Neutrophils % Seg Neuts % (Manual) Lymphocytes % (Manual) Seg Neutrophils # Seg Neutrophils # Man Lymphocytes # (Manual) APTT POC ABG pH ABG pH POC ABG pCO2 POC ABG pO2 ABG pO2 ABG HCO3 ABG Base Excess ABG Hemoglobin VBG pH Oxyhemoglobin Sodium Potassium Chloride Carbon Dioxide BUN Creatinine Glucose POC Glucose 202 H 183 H 184 H Lactic Acid Calcium AST Alkaline Phosphatase CK-MB (CK-2) CK-MB (CK-2) Rel Index Albumin TSH Urine WBC (Auto) Salicylates 03/02/17 03/02/17 03/02/17 00:12 05:58 18:22 WBC RBC Hgb Hct MCV MCH RDW Plt Count Lymph % (Auto) [place] % (Auto) Eos % (Auto) Seg Neutrophils % Seg Neuts % (Manual) Lymphocytes % (Manual) Seg Neutrophils # Seg Neutrophils # Man Lymphocytes # (Manual) APTT POC ABG pH ABG pH POC ABG pCO2 POC ABG pO2 ABG pO2 ABG HCO3 ABG Base Excess ABG Hemoglobin VBG pH Oxyhemoglobin Sodium Potassium Chloride Carbon Dioxide BUN Creatinine Glucose POC Glucose 117 H 176 H 156 H Lactic Acid Calcium AST Alkaline Phosphatase CK-MB (CK-2) CK-MB (CK-2) Rel Index Albumin TSH Urine WBC (Auto) Salicylates 03/02/17 03/03/17 03/03/17 23:51 05:44 11:32 WBC RBC Hgb Hct MCV MCH RDW Plt Count Lymph % (Auto) [place] % (Auto) Eos % (Auto) Seg Neutrophils % Seg Neuts % (Manual) Lymphocytes % (Manual) Seg Neutrophils # Seg Neutrophils # Man Lymphocytes # (Manual) APTT POC ABG pH ABG pH POC ABG pCO2 POC ABG pO2 ABG pO2 ABG HCO3 ABG Base Excess ABG Hemoglobin VBG pH Oxyhemoglobin Sodium Potassium Chloride Carbon Dioxide BUN Creatinine Glucose POC Glucose 211 H 117 H 133 H Lactic Acid Calcium AST Alkaline Phosphatase CK-MB (CK-2) CK-MB (CK-2) Rel Index Albumin TSH Urine WBC (Auto) Salicylates 03/03/17 03/03/17 03/04/17 17:43 23:17 05:30 WBC RBC Hgb Hct MCV MCH RDW Plt Count Lymph % (Auto) [place] % (Auto) Eos % (Auto) Seg Neutrophils % Seg Neuts % (Manual) Lymphocytes % (Manual) Seg Neutrophils # Seg Neutrophils # Man Lymphocytes # (Manual) APTT POC ABG pH ABG pH POC ABG pCO2 POC ABG pO2 ABG pO2 ABG HCO3 ABG Base Excess ABG Hemoglobin VBG pH Oxyhemoglobin Sodium Potassium Chloride Carbon Dioxide BUN Creatinine Glucose POC Glucose 206 H 170 H 126 H Lactic Acid Calcium AST Alkaline Phosphatase CK-MB (CK-2) CK-MB (CK-2) Rel Index Albumin TSH Urine WBC (Auto) Salicylates 03/04/17 03/04/17 03/05/17 12:17 17:27 05:20 WBC RBC Hgb Hct MCV MCH RDW Plt Count Lymph % (Auto) [place] % (Auto) Eos % (Auto) Seg Neutrophils % Seg Neuts % (Manual) Lymphocytes % (Manual) Seg Neutrophils # Seg Neutrophils # Man Lymphocytes # (Manual) APTT POC ABG pH ABG pH POC ABG pCO2 POC ABG pO2 ABG pO2 ABG HCO3 ABG Base Excess ABG Hemoglobin VBG pH Oxyhemoglobin Sodium Potassium Chloride Carbon Dioxide BUN Creatinine Glucose POC Glucose 135 H 121 H 185 H Lactic Acid Calcium AST Alkaline Phosphatase CK-MB (CK-2) CK-MB (CK-2) Rel Index Albumin TSH Urine WBC (Auto) Salicylates 03/05/17 03/06/17 03/06/17 11:50 11:52 17:34 WBC RBC Hgb Hct MCV MCH RDW Plt Count Lymph % (Auto) [place] % (Auto) Eos % (Auto) Seg Neutrophils % Seg Neuts % (Manual) Lymphocytes % (Manual) Seg Neutrophils # Seg Neutrophils # Man Lymphocytes # (Manual) APTT POC ABG pH ABG pH POC ABG pCO2 POC ABG pO2 ABG pO2 ABG HCO3 ABG Base Excess ABG Hemoglobin VBG pH Oxyhemoglobin Sodium Potassium Chloride Carbon Dioxide BUN Creatinine Glucose POC Glucose 116 H 133 H 181 H Lactic Acid Calcium AST Alkaline Phosphatase CK-MB (CK-2) CK-MB (CK-2) Rel Index Albumin TSH Urine WBC (Auto) Salicylates 03/07/17 03/07/17 03/07/17 05:21 11:36 17:49 WBC RBC Hgb Hct MCV MCH RDW Plt Count Lymph % (Auto) [place] % (Auto) Eos % (Auto) Seg Neutrophils % Seg Neuts % (Manual) Lymphocytes % (Manual) Seg Neutrophils # Seg Neutrophils # Man Lymphocytes # (Manual) APTT POC ABG pH ABG pH POC ABG pCO2 POC ABG pO2 ABG pO2 ABG HCO3 ABG Base Excess ABG Hemoglobin VBG pH Oxyhemoglobin Sodium Potassium Chloride Carbon Dioxide BUN Creatinine Glucose POC Glucose 159 H 137 H 158 H Lactic Acid Calcium AST Alkaline Phosphatase CK-MB (CK-2) CK-MB (CK-2) Rel Index Albumin TSH Urine WBC (Auto) Salicylates 03/08/17 03/08/17 03/08/17 05:51 13:58 23:50 WBC RBC Hgb Hct MCV MCH RDW Plt Count Lymph % (Auto) [place] % (Auto) Eos % (Auto) Seg Neutrophils % Seg Neuts % (Manual) Lymphocytes % (Manual) Seg Neutrophils # Seg Neutrophils # Man Lymphocytes # (Manual) APTT POC ABG pH ABG pH POC ABG pCO2 POC ABG pO2 ABG pO2 ABG HCO3 ABG Base Excess ABG Hemoglobin VBG pH Oxyhemoglobin Sodium Potassium Chloride Carbon Dioxide BUN Creatinine Glucose POC Glucose 122 H 182 H 114 H Lactic Acid Calcium AST Alkaline Phosphatase CK-MB (CK-2) CK-MB (CK-2) Rel Index Albumin TSH Urine WBC (Auto) Salicylates 03/09/17 03/09/17 03/09/17 05:21 05:51 05:51 WBC RBC 3.61 L Hgb 9.5 L Hct 28.3 L MCV 79 L MCH 26 L RDW 17.8 H Plt Count Lymph % (Auto) [place] % (Auto) Eos % (Auto) Seg Neutrophils % Seg Neuts % (Manual) Lymphocytes % (Manual) Seg Neutrophils # Seg Neutrophils # Man Lymphocytes # (Manual) APTT POC ABG pH ABG pH POC ABG pCO2 POC ABG pO2 ABG pO2 ABG HCO3 ABG Base Excess ABG Hemoglobin VBG pH Oxyhemoglobin Sodium 134 L Potassium Chloride 95.5 L Carbon Dioxide BUN 33 H Creatinine 0.5 L Glucose 143 H POC Glucose 153 H Lactic Acid Calcium AST Alkaline Phosphatase CK-MB (CK-2) CK-MB (CK-2) Rel Index Albumin TSH Urine WBC (Auto) Salicylates 03/09/17 12:10 WBC RBC Hgb Hct MCV MCH RDW Plt Count Lymph % (Auto) [place] % (Auto) Eos % (Auto) Seg Neutrophils % Seg Neuts % (Manual) Lymphocytes % (Manual) Seg Neutrophils # Seg Neutrophils # Man Lymphocytes # (Manual) APTT POC ABG pH ABG pH POC ABG pCO2 POC ABG pO2 ABG pO2 ABG HCO3 ABG Base Excess ABG Hemoglobin VBG pH Oxyhemoglobin Sodium Potassium Chloride Carbon Dioxide BUN Creatinine Glucose POC Glucose 203 H Lactic Acid Calcium AST Alkaline Phosphatase CK-MB (CK-2) CK-MB (CK-2) Rel Index Albumin TSH Urine WBC (Auto) Salicylates
[2017-03-10] MEDS: HumuLIN R SUB-Q SCH ×3 (01:14→18:27)
[2017-03-10] MEDS: D50W (25GM) Vial IV PRN (05:42)
[2017-03-10] MEDS: SYNTHROID PO SCH (05:42)
[2017-03-10 05:48] LABS: Basophils % (Auto) 0.9 % (0.0-1.8); Eosinophils # (Auto) 0.3 K/mm3 (0.0-0.4); Hematocrit 30.5 % (35.5-45.6); Hemoglobin 10.3 gm/dl (11.8-15.2); Lymphocytes # (Auto) 1.7 K/mm3 (1.2-5.4); Lymphocytes % (Auto) 32.9 % (13.4-35.0); Mean Corpuscular HGB Conc 34 % (32-34); Mean Corpuscular Hemoglobin 26 pg (28-32); Mean Corpuscular Volume 78 fl (84-94); Monocytes # (Auto) 0.5 K/mm3 (0.0-0.8); Platelet Count 316 K/mm3 (140-440); Red Blood Count 3.92 M/mm3 (3.65-5.03); Red Cell Distribution Width 17.9 % (13.2-15.2)
[2017-03-10 05:55] LABS: BUN/Creatinine Ratio 66; Blood Urea Nitrogen 33 mg/dL (9-20); Calcium 8.9 mg/dL (8.4-10.2); Hemolysis Index 6
[2017-03-10] MEDS: PEPCID PO SCH ×2 (10:45→22:44)
--- NOTE | 2017-03-10 11:38 | Progress Note ---
Assessment and Plan Assessment and plan: Hypoglycemic brain injury. Patient was found hypoglycemic. He is now in coma, vegetative state, Unresponsive Persistent vegetative state. Supportive care Metabolic encephalopathy due to hypoglycemia Hypoglycemia/hypothermia, resolved Acute respiratory failure. Intubated, on ventilator. Hyponatremia. Now resolved. Hypothyroidism Diabetes mellitus type 2. Check fingerstick glucose q 6h. Continue Levemir subcut daily Hypertension. BP stable Leukocytosis due to UTI. UTI with ESBL. DNR- awaiting hospice placement, awaiting guardianship from the state to give consent, as has no family to give consent History Interval history: no new issues overnight 51 YO Male with CKD,HTN, DM presents to ED for evaluation. Pt unable to provide history. Pt history taken from ED staff, and medical records. Pt found down and unresponsive by his neighbor, who subsequently called EMS. Upon arrival, patient found unresponsive on the floor with a serum glucose of 21, and covered with ants with insulin syringes around him and a bottle of atenolol which still had many pills remaining, patient has a known history of alcohol abuse and delirium tremens. The patient was administered D5 approximate 500 mls during transport without change in mental status/level of consciousness. Pt seen and evaluated in ED was was found to be unable to protect his airway. Pt intubated and placed on vent support. Pt found to have evidence of hypothyroidism. He was started on Synthroid. He has since been in the ICU. The patient continued to deteriorate. He is in this grade 4 coma, brain imaging does not show any reversible cause. The patient remains in a persistent vegetative states. Sepsis has been ruled out. human services assistant try to locate family, even spoke to the family who he lives with. They themselves were unaware of any family members. After ethics committee meeting on the patient, the decision was made to make him DO NOT RESUSCITATE and to transfer him to hospice. The hospital is trying to get guardianship to sign necessary orders for hospice, however, unsure if they are willing to sign for withdrawal of ventilator Hospitalist Physical - Constitutional Vitals: Temp Pulse Resp BP Pulse Ox 99.5 F 66 14 170/98 100 03/10/17 03:32 03/10/17 08:00 03/10/17 08:00 03/10/17 08:00 03/10/17 08:00 General appearance: Present: no acute distress, well-nourished - EENT Eyes: Present: PERRL, EOM intact ENT: hearing intact, clear oral mucosa, dentition normal - Neck Neck: Present: supple, normal ROM - Respiratory Respiratory effort: normal Respiratory: bilateral: CTA - Cardiovascular Rhythm: regular Heart Sounds: Present: S1 & S2. Absent: gallop, rub - Extremities Extremities: no ischemia, No edema, Full ROM - Abdominal General gastrointestinal: soft, non-tender, non-distended, normal bowel sounds - Integumentary Integumentary: Present: clear, warm, dry - Neurologic Neurologic: CNII-XII intact, moves all extremities Results - Labs CBC & Chem 7: 03/10/17 05:09 03/10/17 05:09 Labs: Laboratory Last Values WBC 5.3 K/mm3 (4.5-11.0) 03/10/17 05:09 RBC 3.92 M/mm3 (3.65-5.03) 03/10/17 05:09 Hgb 10.3 gm/dl (11.8-15.2) L 03/10/17 05:09 Hct 30.5 % (35.5-45.6) L 03/10/17 05:09 MCV 78 fl (84-94) L 03/10/17 05:09 MCH 26 pg (28-32) L 03/10/17 05:09 MCHC 34 % (32-34) 03/10/17 05:09 RDW 17.9 % (13.2-15.2) H 03/10/17 05:09 Plt Count 316 K/mm3 (140-440) 03/10/17 05:09 Lymph % (Auto) 32.9 % (13.4-35.0) 03/10/17 05:09 [place] % (Auto) 10.0 % (0.0-7.3) H 03/10/17 05:09 Eos % (Auto) 6.0 % (0.0-4.3) H 03/10/17 05:09 Baso % (Auto) 0.9 % (0.0-1.8) 03/10/17 05:09 Lymph # 1.7 K/mm3 (1.2-5.4) 03/10/17 05:09 [place] # 0.5 K/mm3 (0.0-0.8) 03/10/17 05:09 Eos # 0.3 K/mm3 (0.0-0.4) 03/10/17 05:09 Baso # 0.0 K/mm3 (0.0-0.1) 03/10/17 05:09 Add Manual Diff Complete 01/10/17 04:30 Total Counted 100 01/10/17 04:30 Seg Neutrophils % 50.2 % (40.0-70.0) 03/10/17 05:09 Seg Neuts % (Manual) 88.0 % (40.0-70.0) H 01/10/17 04:30 Band Neutrophils % 7.0 % 01/10/17 04:30 Lymphocytes % (Manual) 4.0 % (13.4-35.0) L 01/10/17 04:30 Reactive Lymphs % (Man) 0 % 01/10/17 04:30 Monocytes % (Manual) 1.0 % (0.0-7.3) 01/10/17 04:30 Eosinophils % (Manual) 0 % (0.0-4.3) 01/10/17 04:30 Basophils % (Manual) 0 % (0.0-1.8) 01/10/17 04:30 Metamyelocytes % 0 % 01/10/17 04:30 Myelocytes % 0 % 01/10/17 04:30 Promyelocytes % 0 % 01/10/17 04:30 Blast Cells % 0 % 01/10/17 04:30 Nucleated RBC % Not Reportable 01/10/17 04:30 Seg Neutrophils # 2.6 K/mm3 (1.8-7.7) 03/10/17 05:09 Seg Neutrophils # Man 21.2 K/mm3 (1.8-7.7) H 01/10/17 04:30 Band Neutrophils # 1.7 K/mm3 01/10/17 04:30 Lymphocytes # (Manual) 1.0 K/mm3 (1.2-5.4) L 01/10/17 04:30 Abs React Lymphs (Man) 0.0 K/mm3 01/10/17 04:30 Monocytes # (Manual) 0.2 K/mm3 (0.0-0.8) 01/10/17 04:30 Eosinophils # (Manual) 0.0 K/mm3 (0.0-0.4) 01/10/17 04:30 Basophils # (Manual) 0.0 K/mm3 (0.0-0.1) 01/10/17 04:30 Metamyelocytes # 0.0 K/mm3 01/10/17 04:30 Myelocytes # 0.0 K/mm3 01/10/17 04:30 Promyelocytes # 0.0 K/mm3 01/10/17 04:30 Blast Cells # 0.0 K/mm3 01/10/17 04:30 WBC Morphology Not Reportable 01/10/17 04:30 Hypersegmented Neuts Not Reportable 01/10/17 04:30 Hyposegmented Neuts Not Reportable 01/10/17 04:30 Hypogranular Neuts Not Reportable 01/10/17 04:30 Smudge Cells Not Reportable 01/10/17 04:30 Toxic Granulation Not Reportable 01/10/17 04:30 Toxic Vacuolation Not Reportable 01/10/17 04:30 Dohle Bodies Not Reportable 01/10/17 04:30 Pel[place]-Huet Anomaly Not Reportable 01/10/17 04:30 [place] Rods Not Reportable 01/10/17 04:30 Platelet Estimate Consistent w auto 01/10/17 04:30 Clumped Platelets Not Reportable 01/10/17 04:30 Plt Clumps, EDTA Not Reportable 01/10/17 04:30 Large Platelets Not Reportable 01/10/17 04:30 Giant Platelets Not Reportable 01/10/17 04:30 Platelet Satelliting Not Reportable 01/10/17 04:30 Plt Morphology Comment Not Reportable 01/10/17 04:30 RBC Morphology Not Reportable 01/10/17 04:30 Dimorphic RBCs Not Reportable 01/10/17 04:30 Polychromasia Not Reportable 01/10/17 04:30 Hypochromasia 1+ 01/10/17 04:30 Poikilocytosis Not Reportable 01/10/17 04:30 Anisocytosis Not Reportable 01/10/17 04:30 Microcytosis Not Reportable 01/10/17 04:30 Macrocytosis Not Reportable 01/10/17 04:30 Spherocytes Not Reportable 01/10/17 04:30 Pappenheimer Bodies Not Reportable 01/10/17 04:30 Sickle Cells Not Reportable 01/10/17 04:30 Target Cells Not Reportable 01/10/17 04:30 Tear Drop Cells Not Reportable 01/10/17 04:30 Ovalocytes Not Reportable 01/10/17 04:30 Helmet Cells Not Reportable 01/10/17 04:30 [place] Bodies Not Reportable 01/10/17 04:30 [place] Rings Not Reportable 01/10/17 04:30 [place] Cells Not Reportable 01/10/17 04:30 Bite Cells Not Reportable 01/10/17 04:30 Crenated Cell Not Reportable 01/10/17 04:30 Elliptocytes Not Reportable 01/10/17 04:30 Acanthocytes (Spur) Not Reportable 01/10/17 04:30 Rouleaux Not Reportable 01/10/17 04:30 Hemoglobin C Crystals Not Reportable 01/10/17 04:30 Schistocytes Not Reportable 01/10/17 04:30 Malaria parasites Not Reportable 01/10/17 04:30 [place] Bodies Not Reportable 01/10/17 04:30 Hem Pathologist Commnt No 01/10/17 04:30 PT 14.1 Sec. (12.2-14.9) 01/17/17 04:10 INR 1.04 (0.87-1.13) 01/17/17 04:10 APTT 36.6 Sec. (24.2-36.6) 01/17/17 04:10 POC ABG pH 7.442 (7.35-7.45) 01/31/17 18:55 ABG pH 7.420 pH Units (7.350-7.450) 01/17/17 04:35 POC ABG pCO2 32.8 (35-45) L 01/31/17 18:55 ABG pCO2 34.5 mm Hg 01/17/17 04:35 POC ABG pO2 82 (80-105) 01/31/17 18:55 ABG pO2 160.3 mm Hg (80.0-90.0) H 01/17/17 04:35 POC ABG HCO3 22.4 01/31/17 18:55 ABG HCO3 21.9 mmol/L (20.0-26.0) 01/17/17 04:35 POC ABG Total CO2 23 01/31/17 18:55 POC ABG O2 Sat 97 01/31/17 18:55 ABG O2 Saturation 99.0 % (95.0-99.0) 01/17/17 04:35 ABG O2 Content 11.1 (0.0-44) 01/17/17 04:35 POC ABG Base Excess -2 01/31/17 18:55 ABG Base Excess -2.3 mmol/L (-2.0-3.0) L 01/17/17 04:35 ABG Hemoglobin 7.9 gm/dl (14.0-18.0) L 01/17/17 04:35 ABG Carboxyhemoglobin 1.5 % (0.0-5.0) 01/17/17 04:35 ABG Methemoglobin 0.5 % (0.0-1.5) 01/17/17 04:35 VBG pH 7.284 (7.320-7.420) L 01/09/17 10:16 Oxyhemoglobin 97.1 % (95.0-99.0) 01/17/17 04:35 FiO2 25 % 01/31/17 18:55 Sodium 132 mmol/L (137-145) L 03/10/17 05:09 Potassium 4.1 mmol/L (3.6-5.0) 03/10/17 05:09 Chloride 92.2 mmol/L (98-107) L 03/10/17 05:09 Carbon Dioxide 26 mmol/L (22-30) 03/10/17 05:09 Anion Gap 18 mmol/L 03/10/17 05:09 BUN 33 mg/dL (9-20) H 03/10/17 05:09 Creatinine 0.5 mg/dL (0.8-1.5) L 03/10/17 05:09 Estimated GFR > 60 ml/min 03/10/17 05:09 BUN/Creatinine Ratio 66 % 03/10/17 05:09 Glucose 50 mg/dL (75-100) L 03/10/17 05:09 POC Glucose 53 (70-105) L 03/10/17 05:34 Lactic Acid 0.80 mmol/L (0.7-2.0) 01/30/17 11:49 Calcium 8.9 mg/dL (8.4-10.2) 03/10/17 05:09 Phosphorus 3.60 mg/dL (2.5-4.5) 01/22/17 04:00 Magnesium 2.10 mg/dL (1.7-2.3) 01/22/17 04:00 Total Bilirubin 0.30 mg/dL (0.1-1.2) 01/22/17 04:00 AST 44 units/L (5-40) H 01/22/17 04:00 ALT 23 units/L (7-56) 01/22/17 04:00 Alkaline Phosphatase 379 units/L (35-129) H 01/22/17 04:00 Ammonia 35.0 umol/L (25-60) 01/09/17 10:16 Total Creatine Kinase 135 units/L (55-170) 01/09/17 10:16 CK-MB (CK-2) 7.1 ng/mL (0.0-4.0) H 01/09/17 10:16 CK-MB (CK-2) Rel Index 5.2 (0-4) H 01/09/17 10:16 Troponin T < 0.010 ng/mL (0.00-0.029) 01/09/17 10:16 NT-Pro-B Natriuret Pep 602.9 pg/mL (0-900) 01/09/17 10:16 Total Protein 7.9 g/dL (6.3-8.2) 01/22/17 04:00 Albumin 2.7 g/dL (3.9-5) L 01/22/17 04:00 Albumin/Globulin Ratio 0.5 % 01/22/17 04:00 TSH 52.800 mlU/mL (0.270-4.200) H 01/09/17 10:16 Free T4 0.78 ng/dL (0.76-1.46) 01/09/17 10:16 Total Cortisol 54.8 mcg/dL () 01/09/17 16:19 Urine Color Yellow (Yellow) 01/28/17 17:52 Urine Turbidity Clear (Clear) 01/28/17 17:52 Urine pH 6.0 (5.0-7.0) 01/28/17 17:52 Ur Specific [place] 1.016 (1.003-1.030) 01/28/17 17:52 Urine Protein 100 mg/dl mg/dL (Negative) 01/28/17 17:52 Urine Glucose (UA) >=500 mg/dL (Negative) 01/28/17 17:52 Urine Ketones Neg mg/dL (Negative) 01/28/17 17:52 Urine Blood Sm (Negative) 01/28/17 17:52 Urine Nitrite Neg (Negative) 01/28/17 17:52 Urine Bilirubin Neg (Negative) 01/28/17 17:52 Urine Urobilinogen < 2.0 mg/dL (<2.0) 01/28/17 17:52 Ur Leukocyte Esterase Lg (Negative) 01/28/17 17:52 Urine WBC (Auto) > 182.0 /HPF (0.0-6.0) H 01/28/17 17:52 Urine RBC (Auto) 113.0 /HPF (0.0-6.0) 01/28/17 17:52 Urine Bacteria (Auto) 2+ /HPF (Negative) 01/28/17 17:52 Urine WBC Clumps 3+ /HPF 01/28/17 17:52 Urine Mucus Few /HPF 01/14/17 14:07 Urine Yeast ([place]) 3+ /HPF 01/14/17 14:07 Salicylates < 0.3 mg/dL (2.8-20.0) L 01/09/17 10:16 Urine Opiates Screen Presumptive negative 01/09/17 10:23 Urine Methadone Screen Presumptive negative 01/09/17 10:23 Acetaminophen < 15.0 ug/mL (10.0-30.0) 01/09/17 10:16 Ur Barbiturates Screen Presumptive negative 01/09/17 10:23 Ur Phencyclidine Scrn Presumptive negative 01/09/17 10:23 Ur Amphetamines Screen Presumptive negative 01/09/17 10:23 U Benzodiazepines Scrn Presumptive negative 01/09/17 10:23 Urine Cocaine Screen Presumptive negative 01/09/17 10:23 U Marijuana (THC) Screen Presumptive negative 01/09/17 10:23 Drugs of Abuse Note Disclamer 01/09/17 10:23 Plasma/Serum Alcohol < 0.01 gm% (0-0.07) 01/09/17 10:16
--- NOTE | 2017-03-10 15:10 | Progress Note ---
Assessment and Plan Imp: 1. Hypoglycemia/hypothermia -> suspect due to too much insulin 2. Hypothyroidism; doubt myxedema coma with normal free T4 3. Acute respiratory failure, hypoxia 4. UTI/SIRS 5. Metabolic encephalopathy Rec: 1. GI/DVT PPx/TFs 2. Reviewed chart; ethics note 01/18/17 recommended AND and "hospice"; trying to get guardianship to sign necessary orders for this (however, I was told they are not willing to sign for withdrawal of ventilator); further care felt to be futile and would only prolong potential suffering without affecting ultimate outcome 3. Comfort care, no escalation of care; would not check any further labs, etc. 4. Poor prognosis Unable to locate family. Subjective Date of service: 03/10/17 Principal diagnosis: Acute respiratory failure,encephalopathy Interval history: No events. On vent. Unresponsive. Active Medications Acetaminophen (Tylenol) 650 mg FEEDTUBE Q6H PRN PRN Reason: Non Cardiac Pain Or Temp>101 Last Admin: 02/27/17 19:34 Dose: 650 mg Lipase/Protease/Amylase (Pancreashley Dr 10,500 Unit) 1 each FEEDTUBE PRN PRN PRN Reason: For Clogged Feeding Tube Dextrose (D50w (25gm) Vial) 50 gm IV PRN PRN PRN Reason: Hypoglycemia Last Admin: 03/10/17 05:42 Dose: 50 gm Famotidine (Pepcid) 20 mg PO BID [facility] Last Admin: 03/10/17 10:45 Dose: 20 mg Hydrophilic Ointment (Vaseline Lip Therapy) 1 applic TP Q2HR PRN PRN Reason: Dry Lips Insulin Detemir (Levemir) 15 units SUB-Q DAILY [facility] Last Admin: 03/09/17 10:15 Dose: 15 units Insulin Human Regular (Novolin R) 0 units SUB-Q Q6HR PAOLO PRN Reason: Protocol Last Admin: 03/10/17 01:14 Dose: 3 units Levothyroxine Sodium (Synthroid) 100 mcg PO DAILY@0600 [facility] Last Admin: 03/10/17 05:42 Dose: 100 mcg Loperamide HCl (Imodium) 2 mg PO Q2H PRN PRN Reason: Diarrhea Last Admin: 03/04/17 12:35 Dose: 2 mg Multi-Ingred Cream/Lotion/Oil/Oint (Artificial Tears Ophth Oint) 1 applic OU Q4HR PRN PRN Reason: Dry Eye(s) Simple Syrup (Simple Syrup) 15 ml FEEDTUBE PRN PRN PRN Reason: Hypoglycemia Last Admin: 02/28/17 18:56 Dose: 15 ml Simple Syrup (Simple Syrup) 30 ml FEEDTUBE PRN PRN PRN Reason: Hypoglycemia Sodium Bicarbonate (Sodium Bicarbonate) 325 mg FEEDTUBE PRN PRN PRN Reason: For Clogged Feeding Tube Objective Vital Signs - 12hr 03/10/17 03/10/17 03/10/17 03:32 04:01 04:13 Temperature 99.5 F Pulse Rate 71 Respiratory Rate Blood Pressure 144/93 144/93 O2 Sat by Pulse 100 100 Oximetry 03/10/17 03/10/17 03/10/17 06:00 07:33 08:00 Temperature Pulse Rate 64 65 66 Respiratory 15 14 Rate Blood Pressure 161/90 161/90 170/98 O2 Sat by Pulse 100 100 100 Oximetry 03/10/17 03/10/17 10:00 12:00 Temperature Pulse Rate 64 60 Respiratory 15 15 Rate Blood Pressure 159/95 165/90 O2 Sat by Pulse 100 100 Oximetry Constitutional: no acute distress, alert, other (orally intubated, on vent support) Eyes: non-icteric ENT: oropharynx moist Neck: supple Effort: normal Ascultation: Bilateral: clear Cardiovascular: regular rate and rhythm Gastrointestinal: normoactive bowel sounds, soft, non-tender, non-distended Integumentary: normal Extremities: no cyanosis, no edema, pink and warm Neurologic: other (awake spontaneously, not not following any commands. Fixed stare.) Psychiatric: other (unable to obtain) CBC and BMP: 03/10/17 05:09 03/10/17 05:09 ABG, PT/INR, D-dimer: ABG POC ABG pH 7.442 (7.35-7.45) 01/31/17 18:55 ABG pH 7.420 pH Units (7.350-7.450) 01/17/17 04:35 POC ABG pCO2 32.8 (35-45) L 01/31/17 18:55 ABG pCO2 34.5 mm Hg 01/17/17 04:35 POC ABG pO2 82 (80-105) 01/31/17 18:55 ABG pO2 160.3 mm Hg (80.0-90.0) H 01/17/17 04:35 POC ABG HCO3 22.4 01/31/17 18:55 POC ABG Total CO2 23 01/31/17 18:55 POC ABG O2 Sat 97 01/31/17 18:55 ABG O2 Saturation 99.0 % (95.0-99.0) 01/17/17 04:35 PT/INR, D-dimer PT 14.1 Sec. (12.2-14.9) 01/17/17 04:10 INR 1.04 (0.87-1.13) 01/17/17 04:10 Abnormal lab findings: Abnormal Labs 01/09/17 01/09/17 01/09/17 10:16 10:16 10:16 WBC RBC Hgb 9.7 L Hct 28.4 L MCV 76 L MCH 26 L RDW 17.2 H Plt Count 448 H Lymph % (Auto) Josephine % (Auto) Eos % (Auto) Seg Neutrophils % 79.5 H Seg Neuts % (Manual) Lymphocytes % (Manual) Seg Neutrophils # Seg Neutrophils # Man Lymphocytes # (Manual) APTT 39.6 H POC ABG pH ABG pH POC ABG pCO2 POC ABG pO2 ABG pO2 ABG HCO3 ABG Base Excess ABG Hemoglobin VBG pH Oxyhemoglobin Sodium 132 L Potassium Chloride 96.7 L Carbon Dioxide 21 L BUN 34 H Creatinine Glucose POC Glucose Lactic Acid Calcium 8.3 L AST Alkaline Phosphatase 151 H CK-MB (CK-2) 7.1 H CK-MB (CK-2) Rel Index 5.2 H Albumin 3.3 L TSH Urine WBC (Auto) Salicylates 01/09/17 01/09/17 01/09/17 10:16 10:16 10:16 WBC RBC Hgb Hct MCV MCH RDW Plt Count Lymph % (Auto) Josephine % (Auto) Eos % (Auto) Seg Neutrophils % Seg Neuts % (Manual) Lymphocytes % (Manual) Seg Neutrophils # Seg Neutrophils # Man Lymphocytes # (Manual) APTT POC ABG pH ABG pH POC ABG pCO2 POC ABG pO2 ABG pO2 ABG HCO3 ABG Base Excess ABG Hemoglobin VBG pH 7.284 L Oxyhemoglobin Sodium Potassium Chloride Carbon Dioxide BUN Creatinine Glucose POC Glucose Lactic Acid Calcium AST Alkaline Phosphatase CK-MB (CK-2) CK-MB (CK-2) Rel Index Albumin TSH 52.800 H Urine WBC (Auto) Salicylates < 0.3 L 01/09/17 01/09/17 01/09/17 10:23 11:14 12:49 WBC RBC Hgb Hct MCV MCH RDW Plt Count Lymph % (Auto) Josephine % (Auto) Eos % (Auto) Seg Neutrophils % Seg Neuts % (Manual) Lymphocytes % (Manual) Seg Neutrophils # Seg Neutrophils # Man Lymphocytes # (Manual) APTT POC ABG pH ABG pH POC ABG pCO2 POC ABG pO2 643 H ABG pO2 ABG HCO3 ABG Base Excess ABG Hemoglobin VBG pH Oxyhemoglobin Sodium Potassium Chloride Carbon Dioxide BUN Creatinine Glucose POC Glucose < 40 L Lactic Acid Calcium AST Alkaline Phosphatase CK-MB (CK-2) CK-MB (CK-2) Rel Index Albumin TSH Urine WBC (Auto) 61.0 H Salicylates 01/09/17 01/09/17 01/09/17 13:13 14:21 15:09 WBC RBC Hgb Hct MCV MCH RDW Plt Count Lymph % (Auto) Josephine % (Auto) Eos % (Auto) Seg Neutrophils % Seg Neuts % (Manual) Lymphocytes % (Manual) Seg Neutrophils # Seg Neutrophils # Man Lymphocytes # (Manual) APTT POC ABG pH ABG pH POC ABG pCO2 POC ABG pO2 ABG pO2 ABG HCO3 ABG Base Excess ABG Hemoglobin VBG pH Oxyhemoglobin Sodium Potassium Chloride Carbon Dioxide BUN Creatinine Glucose POC Glucose 128 H 65 L 120 H Lactic Acid Calcium AST Alkaline Phosphatase CK-MB (CK-2) CK-MB (CK-2) Rel Index Albumin TSH Urine WBC (Auto) Salicylates 01/09/17 01/09/17 01/10/17 16:28 17:14 04:30 WBC 24.1 H RBC 3.38 L Hgb 8.5 L Hct 26.0 L MCV 77 L MCH 25 L RDW 17.9 H Plt Count 474 H Lymph % (Auto) Josephine % (Auto) Eos % (Auto) Seg Neutrophils % Seg Neuts % (Manual) 88.0 H Lymphocytes % (Manual) 4.0 L Seg Neutrophils # Seg Neutrophils # Man 21.2 H Lymphocytes # (Manual) 1.0 L APTT POC ABG pH ABG pH POC ABG pCO2 POC ABG pO2 ABG pO2 ABG HCO3 ABG Base Excess ABG Hemoglobin VBG pH Oxyhemoglobin Sodium Potassium Chloride Carbon Dioxide BUN Creatinine Glucose POC Glucose 44 L 112 H Lactic Acid Calcium AST Alkaline Phosphatase CK-MB (CK-2) CK-MB (CK-2) Rel Index Albumin TSH Urine WBC (Auto) Salicylates 01/10/17 01/10/17 01/10/17 04:30 05:41 05:45 WBC RBC Hgb Hct MCV MCH RDW Plt Count Lymph % (Auto) Josephine % (Auto) Eos % (Auto) Seg Neutrophils % Seg Neuts % (Manual) Lymphocytes % (Manual) Seg Neutrophils # Seg Neutrophils # Man Lymphocytes # (Manual) APTT POC ABG pH ABG pH POC ABG pCO2 26.6 L POC ABG pO2 207 H ABG pO2 ABG HCO3 ABG Base Excess ABG Hemoglobin VBG pH Oxyhemoglobin Sodium Potassium Chloride Carbon Dioxide 17 L BUN 27 H Creatinine Glucose POC Glucose 68 L Lactic Acid Calcium 7.5 L AST Alkaline Phosphatase CK-MB (CK-2) CK-MB (CK-2) Rel Index Albumin TSH Urine WBC (Auto) Salicylates 01/10/17 01/10/17 01/10/17 07:47 10:50 13:41 WBC RBC Hgb Hct MCV MCH RDW Plt Count Lymph % (Auto) Josephine % (Auto) Eos % (Auto) Seg Neutrophils % Seg Neuts % (Manual) Lymphocytes % (Manual) Seg Neutrophils # Seg Neutrophils # Man Lymphocytes # (Manual) APTT POC ABG pH ABG pH POC ABG pCO2 POC ABG pO2 ABG pO2 ABG HCO3 ABG Base Excess ABG Hemoglobin VBG pH Oxyhemoglobin Sodium Potassium Chloride Carbon Dioxide BUN Creatinine Glucose POC Glucose 148 H 165 H 114 H Lactic Acid Calcium AST Alkaline Phosphatase CK-MB (CK-2) CK-MB (CK-2) Rel Index Albumin TSH Urine WBC (Auto) Salicylates 01/10/17 01/10/17 01/10/17 20:20 21:39 23:24 WBC RBC Hgb Hct MCV MCH RDW Plt Count Lymph % (Auto) Josephine % (Auto) Eos % (Auto) Seg Neutrophils % Seg Neuts % (Manual) Lymphocytes % (Manual) Seg Neutrophils # Seg Neutrophils # Man Lymphocytes # (Manual) APTT POC ABG pH ABG pH POC ABG pCO2 POC ABG pO2 ABG pO2 ABG HCO3 ABG Base Excess ABG Hemoglobin VBG pH Oxyhemoglobin Sodium Potassium Chloride Carbon Dioxide BUN Creatinine Glucose POC Glucose 150 H 175 H 155 H Lactic Acid Calcium AST Alkaline Phosphatase CK-MB (CK-2) CK-MB (CK-2) Rel Index Albumin TSH Urine WBC (Auto) Salicylates 01/11/17 01/11/17 01/11/17 00:19 04:06 05:20 WBC 15.2 H RBC 3.40 L Hgb 8.9 L Hct 26.3 L MCV 78 L MCH 26 L RDW 18.6 H Plt Count 462 H Lymph % (Auto) 13.2 L Josephine % (Auto) Eos % (Auto) Seg Neutrophils % 80.8 H Seg Neuts % (Manual) Lymphocytes % (Manual) Seg Neutrophils # 12.3 H Seg Neutrophils # Man Lymphocytes # (Manual) APTT POC ABG pH 7.463 H ABG pH POC ABG pCO2 26.2 L POC ABG pO2 185 H ABG pO2 ABG HCO3 ABG Base Excess ABG Hemoglobin VBG pH Oxyhemoglobin Sodium Potassium Chloride Carbon Dioxide BUN Creatinine Glucose POC Glucose 163 H Lactic Acid Calcium AST Alkaline Phosphatase CK-MB (CK-2) CK-MB (CK-2) Rel Index Albumin TSH Urine WBC (Auto) Salicylates 01/11/17 01/11/17 01/11/17 05:20 06:21 07:57 WBC RBC Hgb Hct MCV MCH RDW Plt Count Lymph % (Auto) Josephine % (Auto) Eos % (Auto) Seg Neutrophils % Seg Neuts % (Manual) Lymphocytes % (Manual) Seg Neutrophils # Seg Neutrophils # Man Lymphocytes # (Manual) APTT POC ABG pH ABG pH POC ABG pCO2 POC ABG pO2 ABG pO2 ABG HCO3 ABG Base Excess ABG Hemoglobin VBG pH Oxyhemoglobin Sodium Potassium 3.4 L Chloride 111.5 H Carbon Dioxide 17 L BUN Creatinine Glucose 147 H POC Glucose 139 H 188 H Lactic Acid Calcium 8.0 L AST Alkaline Phosphatase CK-MB (CK-2) CK-MB (CK-2) Rel Index Albumin TSH Urine WBC (Auto) Salicylates 01/11/17 01/11/17 01/11/17 11:46 16:50 23:15 WBC RBC Hgb Hct MCV MCH RDW Plt Count Lymph % (Auto) Josephine % (Auto) Eos % (Auto) Seg Neutrophils % Seg Neuts % (Manual) Lymphocytes % (Manual) Seg Neutrophils # Seg Neutrophils # Man Lymphocytes # (Manual) APTT POC ABG pH ABG pH POC ABG pCO2 POC ABG pO2 ABG pO2 ABG HCO3 ABG Base Excess ABG Hemoglobin VBG pH Oxyhemoglobin Sodium Potassium Chloride Carbon Dioxide BUN Creatinine Glucose POC Glucose 199 H 235 H 155 H Lactic Acid Calcium AST Alkaline Phosphatase CK-MB (CK-2) CK-MB (CK-2) Rel Index Albumin TSH Urine WBC (Auto) Salicylates 01/12/17 01/12/17 01/12/17 05:02 06:56 14:50 WBC RBC Hgb Hct MCV MCH RDW Plt Count Lymph % (Auto) Josephine % (Auto) Eos % (Auto) Seg Neutrophils % Seg Neuts % (Manual) Lymphocytes % (Manual) Seg Neutrophils # Seg Neutrophils # Man Lymphocytes # (Manual) APTT POC ABG pH ABG pH POC ABG pCO2 28.0 L POC ABG pO2 178 H ABG pO2 ABG HCO3 ABG Base Excess ABG Hemoglobin VBG pH Oxyhemoglobin Sodium Potassium Chloride Carbon Dioxide BUN Creatinine Glucose POC Glucose 119 H 164 H Lactic Acid Calcium AST Alkaline Phosphatase CK-MB (CK-2) CK-MB (CK-2) Rel Index Albumin TSH Urine WBC (Auto) Salicylates 01/13/17 01/13/17 01/13/17 03:37 03:37 04:26 WBC RBC 3.61 L Hgb 9.3 L Hct 28.0 L MCV 78 L MCH 26 L RDW 18.2 H Plt Count Lymph % (Auto) Josephine % (Auto) Eos % (Auto) Seg Neutrophils % Seg Neuts % (Manual) Lymphocytes % (Manual) Seg Neutrophils # Seg Neutrophils # Man Lymphocytes # (Manual) APTT POC ABG pH 7.485 H ABG pH POC ABG pCO2 25.4 L POC ABG pO2 73 L ABG pO2 ABG HCO3 ABG Base Excess ABG Hemoglobin VBG pH Oxyhemoglobin Sodium Potassium Chloride 112.4 H Carbon Dioxide 19 L BUN Creatinine Glucose 118 H POC Glucose Lactic Acid Calcium 8.0 L AST Alkaline Phosphatase CK-MB (CK-2) CK-MB (CK-2) Rel Index Albumin TSH Urine WBC (Auto) Salicylates 01/13/17 01/13/17 01/13/17 06:15 11:50 17:31 WBC RBC Hgb Hct MCV MCH RDW Plt Count Lymph % (Auto) Josephine % (Auto) Eos % (Auto) Seg Neutrophils % Seg Neuts % (Manual) Lymphocytes % (Manual) Seg Neutrophils # Seg Neutrophils # Man Lymphocytes # (Manual) APTT POC ABG pH ABG pH POC ABG pCO2 POC ABG pO2 ABG pO2 ABG HCO3 ABG Base Excess ABG Hemoglobin VBG pH Oxyhemoglobin Sodium Potassium Chloride Carbon Dioxide BUN Creatinine Glucose POC Glucose 116 H 171 H 203 H Lactic Acid Calcium AST Alkaline Phosphatase CK-MB (CK-2) CK-MB (CK-2) Rel Index Albumin TSH Urine WBC (Auto) Salicylates 01/14/17 01/14/17 01/14/17 00:02 04:50 04:50 WBC RBC 3.32 L Hgb 8.5 L Hct 26.1 L MCV 79 L MCH 26 L RDW 18.2 H Plt Count Lymph % (Auto) Josephine % (Auto) 9.0 H Eos % (Auto) Seg Neutrophils % Seg Neuts % (Manual) Lymphocytes % (Manual) Seg Neutrophils # Seg Neutrophils # Man Lymphocytes # (Manual) APTT POC ABG pH ABG pH POC ABG pCO2 POC ABG pO2 ABG pO2 ABG HCO3 ABG Base Excess ABG Hemoglobin VBG pH Oxyhemoglobin Sodium Potassium Chloride 112.5 H Carbon Dioxide BUN Creatinine Glucose 149 H POC Glucose 157 H Lactic Acid Calcium 8.1 L AST Alkaline Phosphatase CK-MB (CK-2) CK-MB (CK-2) Rel Index Albumin TSH Urine WBC (Auto) Salicylates 01/14/17 01/14/17 01/14/17 05:10 11:27 14:07 WBC RBC Hgb Hct MCV MCH RDW Plt Count Lymph % (Auto) Josephine % (Auto) Eos % (Auto) Seg Neutrophils % Seg Neuts % (Manual) Lymphocytes % (Manual) Seg Neutrophils # Seg Neutrophils # Man Lymphocytes # (Manual) APTT POC ABG pH ABG pH POC ABG pCO2 POC ABG pO2 ABG pO2 ABG HCO3 ABG Base Excess ABG Hemoglobin VBG pH Oxyhemoglobin Sodium Potassium Chloride Carbon Dioxide BUN Creatinine Glucose POC Glucose 176 H 147 H Lactic Acid Calcium AST Alkaline Phosphatase CK-MB (CK-2) CK-MB (CK-2) Rel Index Albumin TSH Urine WBC (Auto) 53.0 H Salicylates 01/14/17 01/15/17 01/15/17 16:52 00:04 05:26 WBC RBC Hgb Hct MCV MCH RDW Plt Count Lymph % (Auto) Josephine % (Auto) Eos % (Auto) Seg Neutrophils % Seg Neuts % (Manual) Lymphocytes % (Manual) Seg Neutrophils # Seg Neutrophils # Man Lymphocytes # (Manual) APTT POC ABG pH ABG pH POC ABG pCO2 POC ABG pO2 ABG pO2 ABG HCO3 ABG Base Excess ABG Hemoglobin VBG pH Oxyhemoglobin Sodium Potassium Chloride Carbon Dioxide BUN Creatinine Glucose POC Glucose 131 H 193 H 215 H Lactic Acid Calcium AST Alkaline Phosphatase CK-MB (CK-2) CK-MB (CK-2) Rel Index Albumin TSH Urine WBC (Auto) Salicylates 01/15/17 01/15/17 01/15/17 11:49 17:47 21:33 WBC RBC Hgb Hct MCV MCH RDW Plt Count Lymph % (Auto) Josephine % (Auto) Eos % (Auto) Seg Neutrophils % Seg Neuts % (Manual) Lymphocytes % (Manual) Seg Neutrophils # Seg Neutrophils # Man Lymphocytes # (Manual) APTT POC ABG pH ABG pH POC ABG pCO2 POC ABG pO2 ABG pO2 ABG HCO3 ABG Base Excess ABG Hemoglobin VBG pH Oxyhemoglobin Sodium Potassium Chloride Carbon Dioxide BUN Creatinine Glucose POC Glucose 121 H 211 H 275 H Lactic Acid Calcium AST Alkaline Phosphatase CK-MB (CK-2) CK-MB (CK-2) Rel Index Albumin TSH Urine WBC (Auto) Salicylates 01/16/17 01/16/17 01/16/17 04:30 05:28 13:45 WBC RBC Hgb Hct MCV MCH RDW Plt Count Lymph % (Auto) Josephine % (Auto) Eos % (Auto) Seg Neutrophils % Seg Neuts % (Manual) Lymphocytes % (Manual) Seg Neutrophils # Seg Neutrophils # Man Lymphocytes # (Manual) APTT POC ABG pH ABG pH 7.457 H POC ABG pCO2 POC ABG pO2 ABG pO2 55.1 L ABG HCO3 19.4 L ABG Base Excess -4.0 L ABG Hemoglobin 6.8 L VBG pH Oxyhemoglobin 94.9 L Sodium Potassium Chloride Carbon Dioxide BUN Creatinine Glucose POC Glucose 271 H 236 H Lactic Acid Calcium AST Alkaline Phosphatase CK-MB (CK-2) CK-MB (CK-2) Rel Index Albumin TSH Urine WBC (Auto) Salicylates 01/16/17 01/17/17 01/17/17 21:39 04:10 04:10 WBC 4.4 L RBC 2.98 L Hgb 7.7 L Hct 23.3 L MCV 78 L MCH 26 L RDW 18.1 H Plt Count Lymph % (Auto) Josephine % (Auto) Eos % (Auto) Seg Neutrophils % Seg Neuts % (Manual) Lymphocytes % (Manual) Seg Neutrophils # Seg Neutrophils # Man Lymphocytes # (Manual) APTT POC ABG pH ABG pH POC ABG pCO2 POC ABG pO2 ABG pO2 ABG HCO3 ABG Base Excess ABG Hemoglobin VBG pH Oxyhemoglobin Sodium Potassium 3.3 L Chloride 108.7 H Carbon Dioxide 20 L BUN 8 L Creatinine Glucose 202 H POC Glucose 258 H Lactic Acid Calcium 7.6 L AST Alkaline Phosphatase CK-MB (CK-2) CK-MB (CK-2) Rel Index Albumin TSH Urine WBC (Auto) Salicylates 01/17/17 01/17/17 01/17/17 04:35 12:23 16:01 WBC RBC Hgb Hct MCV MCH RDW Plt Count Lymph % (Auto) Josephine % (Auto) Eos % (Auto) Seg Neutrophils % Seg Neuts % (Manual) Lymphocytes % (Manual) Seg Neutrophils # Seg Neutrophils # Man Lymphocytes # (Manual) APTT POC ABG pH ABG pH POC ABG pCO2 POC ABG pO2 ABG pO2 160.3 H ABG HCO3 ABG Base Excess -2.3 L ABG Hemoglobin 7.9 L VBG pH Oxyhemoglobin Sodium Potassium Chloride Carbon Dioxide BUN Creatinine Glucose POC Glucose 321 H 239 H Lactic Acid Calcium AST Alkaline Phosphatase CK-MB (CK-2) CK-MB (CK-2) Rel Index Albumin TSH Urine WBC (Auto) Salicylates 01/18/17 01/18/17 01/18/17 05:07 12:09 17:54 WBC RBC Hgb Hct MCV MCH RDW Plt Count Lymph % (Auto) Josephine % (Auto) Eos % (Auto) Seg Neutrophils % Seg Neuts % (Manual) Lymphocytes % (Manual) Seg Neutrophils # Seg Neutrophils # Man Lymphocytes # (Manual) APTT POC ABG pH ABG pH POC ABG pCO2 POC ABG pO2 ABG pO2 ABG HCO3 ABG Base Excess ABG Hemoglobin VBG pH Oxyhemoglobin Sodium Potassium Chloride Carbon Dioxide BUN Creatinine Glucose POC Glucose 155 H 203 H 132 H Lactic Acid Calcium AST Alkaline Phosphatase CK-MB (CK-2) CK-MB (CK-2) Rel Index Albumin TSH Urine WBC (Auto) Salicylates 01/18/17 01/19/17 01/19/17 23:43 04:28 12:11 WBC RBC Hgb Hct MCV MCH RDW Plt Count Lymph % (Auto) Josephine % (Auto) Eos % (Auto) Seg Neutrophils % Seg Neuts % (Manual) Lymphocytes % (Manual) Seg Neutrophils # Seg Neutrophils # Man Lymphocytes # (Manual) APTT POC ABG pH ABG pH POC ABG pCO2 POC ABG pO2 ABG pO2 ABG HCO3 ABG Base Excess ABG Hemoglobin VBG pH Oxyhemoglobin Sodium Potassium Chloride Carbon Dioxide BUN Creatinine Glucose POC Glucose 125 H 182 H 153 H Lactic Acid Calcium AST Alkaline Phosphatase CK-MB (CK-2) CK-MB (CK-2) Rel Index Albumin TSH Urine WBC (Auto) Salicylates 01/19/17 01/20/17 01/20/17 17:23 00:12 05:44 WBC RBC Hgb Hct MCV MCH RDW Plt Count Lymph % (Auto) Josephine % (Auto) Eos % (Auto) Seg Neutrophils % Seg Neuts % (Manual) Lymphocytes % (Manual) Seg Neutrophils # Seg Neutrophils # Man Lymphocytes # (Manual) APTT POC ABG pH ABG pH POC ABG pCO2 POC ABG pO2 ABG pO2 ABG HCO3 ABG Base Excess ABG Hemoglobin VBG pH Oxyhemoglobin Sodium Potassium Chloride Carbon Dioxide BUN Creatinine Glucose POC Glucose 66 L 139 H 176 H Lactic Acid Calcium AST Alkaline Phosphatase CK-MB (CK-2) CK-MB (CK-2) Rel Index Albumin TSH Urine WBC (Auto) Salicylates 01/20/17 01/20/17 01/20/17 11:48 17:42 23:43 WBC RBC Hgb Hct MCV MCH RDW Plt Count Lymph % (Auto) Josephine % (Auto) Eos % (Auto) Seg Neutrophils % Seg Neuts % (Manual) Lymphocytes % (Manual) Seg Neutrophils # Seg Neutrophils # Man Lymphocytes # (Manual) APTT POC ABG pH ABG pH POC ABG pCO2 POC ABG pO2 ABG pO2 ABG HCO3 ABG Base Excess ABG Hemoglobin VBG pH Oxyhemoglobin Sodium Potassium Chloride Carbon Dioxide BUN Creatinine Glucose POC Glucose 218 H 132 H 178 H Lactic Acid Calcium AST Alkaline Phosphatase CK-MB (CK-2) CK-MB (CK-2) Rel Index Albumin TSH Urine WBC (Auto) Salicylates 01/21/17 01/21/17 01/21/17 05:34 11:17 23:37 WBC RBC Hgb Hct MCV MCH RDW Plt Count Lymph % (Auto) Josephine % (Auto) Eos % (Auto) Seg Neutrophils % Seg Neuts % (Manual) Lymphocytes % (Manual) Seg Neutrophils # Seg Neutrophils # Man Lymphocytes # (Manual) APTT POC ABG pH ABG pH POC ABG pCO2 POC ABG pO2 ABG pO2 ABG HCO3 ABG Base Excess ABG Hemoglobin VBG pH Oxyhemoglobin Sodium Potassium Chloride Carbon Dioxide BUN Creatinine Glucose POC Glucose 106 H 213 H 140 H Lactic Acid Calcium AST Alkaline Phosphatase CK-MB (CK-2) CK-MB (CK-2) Rel Index Albumin TSH Urine WBC (Auto) Salicylates 01/22/17 01/22/17 01/22/17 04:00 04:00 04:58 WBC RBC 3.26 L Hgb 8.3 L Hct 25.5 L MCV 78 L MCH 25 L RDW 17.9 H Plt Count Lymph % (Auto) Josephine % (Auto) 7.9 H Eos % (Auto) 6.2 H Seg Neutrophils % Seg Neuts % (Manual) Lymphocytes % (Manual) Seg Neutrophils # Seg Neutrophils # Man Lymphocytes # (Manual) APTT POC ABG pH ABG pH POC ABG pCO2 POC ABG pO2 ABG pO2 ABG HCO3 ABG Base Excess ABG Hemoglobin VBG pH Oxyhemoglobin Sodium Potassium Chloride 95.5 L Carbon Dioxide 31 H D BUN Creatinine Glucose 134 H POC Glucose 146 H Lactic Acid Calcium AST 44 H Alkaline Phosphatase 379 H CK-MB (CK-2) CK-MB (CK-2) Rel Index Albumin 2.7 L TSH Urine WBC (Auto) Salicylates 01/22/17 01/22/17 01/22/17 12:12 18:12 23:39 WBC RBC Hgb Hct MCV MCH RDW Plt Count Lymph % (Auto) Josephine % (Auto) Eos % (Auto) Seg Neutrophils % Seg Neuts % (Manual) Lymphocytes % (Manual) Seg Neutrophils # Seg Neutrophils # Man Lymphocytes # (Manual) APTT POC ABG pH ABG pH POC ABG pCO2 POC ABG pO2 ABG pO2 ABG HCO3 ABG Base Excess ABG Hemoglobin VBG pH Oxyhemoglobin Sodium Potassium Chloride Carbon Dioxide BUN Creatinine Glucose POC Glucose 255 H 182 H 134 H Lactic Acid Calcium AST Alkaline Phosphatase CK-MB (CK-2) CK-MB (CK-2) Rel Index Albumin TSH Urine WBC (Auto) Salicylates 01/23/17 01/23/17 01/23/17 04:43 12:12 17:36 WBC RBC Hgb Hct MCV MCH RDW Plt Count Lymph % (Auto) Josephine % (Auto) Eos % (Auto) Seg Neutrophils % Seg Neuts % (Manual) Lymphocytes % (Manual) Seg Neutrophils # Seg Neutrophils # Man Lymphocytes # (Manual) APTT POC ABG pH ABG pH POC ABG pCO2 POC ABG pO2 ABG pO2 ABG HCO3 ABG Base Excess ABG Hemoglobin VBG pH Oxyhemoglobin Sodium Potassium Chloride Carbon Dioxide BUN Creatinine Glucose POC Glucose 218 H 128 H 156 H Lactic Acid Calcium AST Alkaline Phosphatase CK-MB (CK-2) CK-MB (CK-2) Rel Index Albumin TSH Urine WBC (Auto) Salicylates 01/24/17 01/24/17 01/24/17 00:08 05:16 11:40 WBC RBC Hgb Hct MCV MCH RDW Plt Count Lymph % (Auto) Josephine % (Auto) Eos % (Auto) Seg Neutrophils % Seg Neuts % (Manual) Lymphocytes % (Manual) Seg Neutrophils # Seg Neutrophils # Man Lymphocytes # (Manual) APTT POC ABG pH ABG pH POC ABG pCO2 POC ABG pO2 ABG pO2 ABG HCO3 ABG Base Excess ABG Hemoglobin VBG pH Oxyhemoglobin Sodium Potassium Chloride Carbon Dioxide BUN Creatinine Glucose POC Glucose 129 H 169 H 187 H Lactic Acid Calcium AST Alkaline Phosphatase CK-MB (CK-2) CK-MB (CK-2) Rel Index Albumin TSH Urine WBC (Auto) Salicylates 01/24/17 01/24/17 01/25/17 17:43 23:23 04:56 WBC RBC Hgb Hct MCV MCH RDW Plt Count Lymph % (Auto) Josephine % (Auto) Eos % (Auto) Seg Neutrophils % Seg Neuts % (Manual) Lymphocytes % (Manual) Seg Neutrophils # Seg Neutrophils # Man Lymphocytes # (Manual) APTT POC ABG pH ABG pH POC ABG pCO2 POC ABG pO2 ABG pO2 ABG HCO3 ABG Base Excess ABG Hemoglobin VBG pH Oxyhemoglobin Sodium Potassium Chloride Carbon Dioxide BUN Creatinine Glucose POC Glucose 215 H 222 H 210 H Lactic Acid Calcium AST Alkaline Phosphatase CK-MB (CK-2) CK-MB (CK-2) Rel Index Albumin TSH Urine WBC (Auto) Salicylates 01/25/17 01/25/17 01/26/17 11:52 17:37 00:02 WBC RBC Hgb Hct MCV MCH RDW Plt Count Lymph % (Auto) Josephine % (Auto) Eos % (Auto) Seg Neutrophils % Seg Neuts % (Manual) Lymphocytes % (Manual) Seg Neutrophils # Seg Neutrophils # Man Lymphocytes # (Manual) APTT POC ABG pH ABG pH POC ABG pCO2 POC ABG pO2 ABG pO2 ABG HCO3 ABG Base Excess ABG Hemoglobin VBG pH Oxyhemoglobin Sodium Potassium Chloride Carbon Dioxide BUN Creatinine Glucose POC Glucose 284 H 218 H 192 H Lactic Acid Calcium AST Alkaline Phosphatase CK-MB (CK-2) CK-MB (CK-2) Rel Index Albumin TSH Urine WBC (Auto) Salicylates 01/26/17 01/26/17 01/26/17 05:33 12:17 17:50 WBC RBC Hgb Hct MCV MCH RDW Plt Count Lymph % (Auto) [place]ine % (Auto) Eos % (Auto) Seg Neutrophils % Seg Neuts % (Manual) Lymphocytes % (Manual) Seg Neutrophils # Seg Neutrophils # Man Lymphocytes # (Manual) APTT POC ABG pH ABG pH POC ABG pCO2 POC ABG pO2 ABG pO2 ABG HCO3 ABG Base Excess ABG Hemoglobin VBG pH Oxyhemoglobin Sodium Potassium Chloride Carbon Dioxide BUN Creatinine Glucose POC Glucose 199 H 227 H 229 H Lactic Acid Calcium AST Alkaline Phosphatase CK-MB (CK-2) CK-MB (CK-2) Rel Index Albumin TSH Urine WBC (Auto) Salicylates 01/26/17 01/27/17 01/27/17 23:57 05:31 11:42 WBC RBC Hgb Hct MCV MCH RDW Plt Count Lymph % (Auto) [place]ine % (Auto) Eos % (Auto) Seg Neutrophils % Seg Neuts % (Manual) Lymphocytes % (Manual) Seg Neutrophils # Seg Neutrophils # Man Lymphocytes # (Manual) APTT POC ABG pH ABG pH POC ABG pCO2 POC ABG pO2 ABG pO2 ABG HCO3 ABG Base Excess ABG Hemoglobin VBG pH Oxyhemoglobin Sodium Potassium Chloride Carbon Dioxide BUN Creatinine Glucose POC Glucose 186 H 285 H 260 H Lactic Acid Calcium AST Alkaline Phosphatase CK-MB (CK-2) CK-MB (CK-2) Rel Index Albumin TSH Urine WBC (Auto) Salicylates 01/27/17 01/27/17 01/27/17 17:47 23:58 Unknown WBC 12.1 H RBC 3.28 L Hgb 8.5 L Hct 25.5 L MCV 78 L MCH 26 L RDW 16.8 H Plt Count 601 H Lymph % (Auto) Josephine % (Auto) Eos % (Auto) Seg Neutrophils % Seg Neuts % (Manual) Lymphocytes % (Manual) Seg Neutrophils # Seg Neutrophils # Man Lymphocytes # (Manual) APTT POC ABG pH ABG pH POC ABG pCO2 POC ABG pO2 ABG pO2 ABG HCO3 ABG Base Excess ABG Hemoglobin VBG pH Oxyhemoglobin Sodium Potassium Chloride Carbon Dioxide BUN Creatinine Glucose POC Glucose 329 H 225 H Lactic Acid Calcium AST Alkaline Phosphatase CK-MB (CK-2) CK-MB (CK-2) Rel Index Albumin TSH Urine WBC (Auto) Salicylates 01/27/17 01/28/17 01/28/17 Unknown 03:44 03:44 WBC RBC 3.14 L Hgb 8.2 L Hct 24.1 L MCV 77 L MCH 26 L RDW 16.9 H Plt Count 567 H Lymph % (Auto) [place]ine % (Auto) Eos % (Auto) Seg Neutrophils % Seg Neuts % (Manual) Lymphocytes % (Manual) Seg Neutrophils # Seg Neutrophils # Man Lymphocytes # (Manual) APTT POC ABG pH ABG pH POC ABG pCO2 POC ABG pO2 ABG pO2 ABG HCO3 ABG Base Excess ABG Hemoglobin VBG pH Oxyhemoglobin Sodium 128 L Potassium 5.4 H Chloride 87.5 L Carbon Dioxide BUN 44 H 42 H Creatinine Glucose 250 H 128 H POC Glucose Lactic Acid Calcium AST Alkaline Phosphatase CK-MB (CK-2) CK-MB (CK-2) Rel Index Albumin TSH Urine WBC (Auto) Salicylates 01/28/17 01/28/17 01/28/17 11:43 16:47 17:52 WBC RBC Hgb Hct MCV MCH RDW Plt Count Lymph % (Auto) [place]ine % (Auto) Eos % (Auto) Seg Neutrophils % Seg Neuts % (Manual) Lymphocytes % (Manual) Seg Neutrophils # Seg Neutrophils # Man Lymphocytes # (Manual) APTT POC ABG pH ABG pH POC ABG pCO2 POC ABG pO2 ABG pO2 ABG HCO3 ABG Base Excess ABG Hemoglobin VBG pH Oxyhemoglobin Sodium Potassium Chloride Carbon Dioxide BUN Creatinine Glucose POC Glucose 351 H 249 H Lactic Acid Calcium AST Alkaline Phosphatase CK-MB (CK-2) CK-MB (CK-2) Rel Index Albumin TSH Urine WBC (Auto) > 182.0 H Salicylates 01/29/17 01/29/17 01/29/17 05:25 05:25 09:32 WBC 13.6 H RBC 3.25 L Hgb 8.3 L Hct 25.1 L MCV 77 L MCH 26 L RDW 16.8 H Plt Count 514 H Lymph % (Auto) [place]ine % (Auto) Eos % (Auto) Seg Neutrophils % Seg Neuts % (Manual) Lymphocytes % (Manual) Seg Neutrophils # Seg Neutrophils # Man Lymphocytes # (Manual) APTT POC ABG pH ABG pH POC ABG pCO2 POC ABG pO2 ABG pO2 ABG HCO3 ABG Base Excess ABG Hemoglobin VBG pH Oxyhemoglobin Sodium Potassium Chloride 97.8 L Carbon Dioxide BUN 34 H Creatinine Glucose 222 H POC Glucose Lactic Acid 2.50 H* Calcium AST Alkaline Phosphatase CK-MB (CK-2) CK-MB (CK-2) Rel Index Albumin TSH Urine WBC (Auto) Salicylates 01/29/17 01/29/17 01/29/17 11:56 18:11 23:55 WBC RBC Hgb Hct MCV MCH RDW Plt Count Lymph % (Auto) [place]ine % (Auto) Eos % (Auto) Seg Neutrophils % Seg Neuts % (Manual) Lymphocytes % (Manual) Seg Neutrophils # Seg Neutrophils # Man Lymphocytes # (Manual) APTT POC ABG pH ABG pH POC ABG pCO2 POC ABG pO2 ABG pO2 ABG HCO3 ABG Base Excess ABG Hemoglobin VBG pH Oxyhemoglobin Sodium Potassium Chloride Carbon Dioxide BUN Creatinine Glucose POC Glucose 261 H 215 H 176 H Lactic Acid Calcium AST Alkaline Phosphatase CK-MB (CK-2) CK-MB (CK-2) Rel Index Albumin TSH Urine WBC (Auto) Salicylates 01/30/17 01/30/17 01/30/17 05:31 05:31 05:34 WBC 15.2 H RBC 3.09 L Hgb 7.9 L Hct 23.9 L MCV 77 L MCH 26 L RDW 16.9 H Plt Count 569 H Lymph % (Auto) [place]ine % (Auto) Eos % (Auto) Seg Neutrophils % Seg Neuts % (Manual) Lymphocytes % (Manual) Seg Neutrophils # Seg Neutrophils # Man Lymphocytes # (Manual) APTT POC ABG pH ABG pH POC ABG pCO2 POC ABG pO2 ABG pO2 ABG HCO3 ABG Base Excess ABG Hemoglobin VBG pH Oxyhemoglobin Sodium Potassium Chloride Carbon Dioxide BUN 24 H Creatinine Glucose 235 H POC Glucose 243 H Lactic Acid Calcium AST Alkaline Phosphatase CK-MB (CK-2) CK-MB (CK-2) Rel Index Albumin TSH Urine WBC (Auto) Salicylates 01/30/17 01/30/17 01/30/17 11:38 17:58 23:29 WBC RBC Hgb Hct MCV MCH RDW Plt Count Lymph % (Auto) [place]ine % (Auto) Eos % (Auto) Seg Neutrophils % Seg Neuts % (Manual) Lymphocytes % (Manual) Seg Neutrophils # Seg Neutrophils # Man Lymphocytes # (Manual) APTT POC ABG pH ABG pH POC ABG pCO2 POC ABG pO2 ABG pO2 ABG HCO3 ABG Base Excess ABG Hemoglobin VBG pH Oxyhemoglobin Sodium Potassium Chloride Carbon Dioxide BUN Creatinine Glucose POC Glucose 298 H 208 H 245 H Lactic Acid Calcium AST Alkaline Phosphatase CK-MB (CK-2) CK-MB (CK-2) Rel Index Albumin TSH Urine WBC (Auto) Salicylates 01/31/17 01/31/17 01/31/17 04:39 04:39 05:57 WBC 11.4 H RBC 3.22 L Hgb 8.2 L Hct 24.9 L MCV 78 L MCH 25 L RDW 17.2 H Plt Count 576 H Lymph % (Auto) [place]ine % (Auto) Eos % (Auto) Seg Neutrophils % Seg Neuts % (Manual) Lymphocytes % (Manual) Seg Neutrophils # Seg Neutrophils # Man Lymphocytes # (Manual) APTT POC ABG pH ABG pH POC ABG pCO2 POC ABG pO2 ABG pO2 ABG HCO3 ABG Base Excess ABG Hemoglobin VBG pH Oxyhemoglobin Sodium Potassium Chloride Carbon Dioxide BUN Creatinine 0.7 L Glucose 223 H POC Glucose 264 H Lactic Acid Calcium AST Alkaline Phosphatase CK-MB (CK-2) CK-MB (CK-2) Rel Index Albumin TSH Urine WBC (Auto) Salicylates 01/31/17 01/31/17 01/31/17 12:23 17:41 18:55 WBC RBC Hgb Hct MCV MCH RDW Plt Count Lymph % (Auto) [place]ine % (Auto) Eos % (Auto) Seg Neutrophils % Seg Neuts % (Manual) Lymphocytes % (Manual) Seg Neutrophils # Seg Neutrophils # Man Lymphocytes # (Manual) APTT POC ABG pH ABG pH POC ABG pCO2 32.8 L POC ABG pO2 ABG pO2 ABG HCO3 ABG Base Excess ABG Hemoglobin VBG pH Oxyhemoglobin Sodium Potassium Chloride Carbon Dioxide BUN Creatinine Glucose POC Glucose 252 H 208 H Lactic Acid Calcium AST Alkaline Phosphatase CK-MB (CK-2) CK-MB (CK-2) Rel Index Albumin TSH Urine WBC (Auto) Salicylates 01/31/17 02/01/17 02/01/17 22:59 03:38 03:38 WBC RBC 2.81 L Hgb 7.4 L Hct 22.1 L MCV 79 L MCH 27 L RDW 17.0 H Plt Count 540 H Lymph % (Auto) [place]ine % (Auto) Eos % (Auto) Seg Neutrophils % Seg Neuts % (Manual) Lymphocytes % (Manual) Seg Neutrophils # Seg Neutrophils # Man Lymphocytes # (Manual) APTT POC ABG pH ABG pH POC ABG pCO2 POC ABG pO2 ABG pO2 ABG HCO3 ABG Base Excess ABG Hemoglobin VBG pH Oxyhemoglobin Sodium Potassium Chloride Carbon Dioxide 21 L BUN Creatinine 0.7 L Glucose POC Glucose 40 L Lactic Acid Calcium AST Alkaline Phosphatase CK-MB (CK-2) CK-MB (CK-2) Rel Index Albumin TSH Urine WBC (Auto) Salicylates 02/01/17 02/01/17 02/01/17 05:17 12:19 16:44 WBC RBC Hgb Hct MCV MCH RDW Plt Count Lymph % (Auto) [place]ine % (Auto) Eos % (Auto) Seg Neutrophils % Seg Neuts % (Manual) Lymphocytes % (Manual) Seg Neutrophils # Seg Neutrophils # Man Lymphocytes # (Manual) APTT POC ABG pH ABG pH POC ABG pCO2 POC ABG pO2 ABG pO2 ABG HCO3 ABG Base Excess ABG Hemoglobin VBG pH Oxyhemoglobin Sodium Potassium Chloride Carbon Dioxide BUN Creatinine Glucose POC Glucose 140 H 213 H 172 H Lactic Acid Calcium AST Alkaline Phosphatase CK-MB (CK-2) CK-MB (CK-2) Rel Index Albumin TSH Urine WBC (Auto) Salicylates 02/01/17 02/02/17 02/02/17 23:59 05:14 11:24 WBC RBC Hgb Hct MCV MCH RDW Plt Count Lymph % (Auto) [place]ine % (Auto) Eos % (Auto) Seg Neutrophils % Seg Neuts % (Manual) Lymphocytes % (Manual) Seg Neutrophils # Seg Neutrophils # Man Lymphocytes # (Manual) APTT POC ABG pH ABG pH POC ABG pCO2 POC ABG pO2 ABG pO2 ABG HCO3 ABG Base Excess ABG Hemoglobin VBG pH Oxyhemoglobin Sodium Potassium Chloride Carbon Dioxide BUN Creatinine Glucose POC Glucose 181 H 194 H 209 H Lactic Acid Calcium AST Alkaline Phosphatase CK-MB (CK-2) CK-MB (CK-2) Rel Index Albumin TSH Urine WBC (Auto) Salicylates 02/02/17 02/02/17 02/02/17 11:46 11:46 17:47 WBC RBC 2.94 L Hgb 7.5 L Hct 23.0 L MCV 78 L MCH 25 L RDW 16.9 H Plt Count 520 H Lymph % (Auto) [place]ine % (Auto) Eos % (Auto) Seg Neutrophils % Seg Neuts % (Manual) Lymphocytes % (Manual) Seg Neutrophils # Seg Neutrophils # Man Lymphocytes # (Manual) APTT POC ABG pH ABG pH POC ABG pCO2 POC ABG pO2 ABG pO2 ABG HCO3 ABG Base Excess ABG Hemoglobin VBG pH Oxyhemoglobin Sodium Potassium Chloride Carbon Dioxide BUN Creatinine 0.6 L Glucose 189 H POC Glucose 147 H Lactic Acid Calcium 8.1 L AST Alkaline Phosphatase CK-MB (CK-2) CK-MB (CK-2) Rel Index Albumin TSH Urine WBC (Auto) Salicylates 02/02/17 02/03/17 02/03/17 23:32 05:53 11:19 WBC RBC Hgb Hct MCV MCH RDW Plt Count Lymph % (Auto) [place]ine % (Auto) Eos % (Auto) Seg Neutrophils % Seg Neuts % (Manual) Lymphocytes % (Manual) Seg Neutrophils # Seg Neutrophils # Man Lymphocytes # (Manual) APTT POC ABG pH ABG pH POC ABG pCO2 POC ABG pO2 ABG pO2 ABG HCO3 ABG Base Excess ABG Hemoglobin VBG pH Oxyhemoglobin Sodium Potassium Chloride Carbon Dioxide BUN Creatinine Glucose POC Glucose 176 H 224 H 228 H Lactic Acid Calcium AST Alkaline Phosphatase CK-MB (CK-2) CK-MB (CK-2) Rel Index Albumin TSH Urine WBC (Auto) Salicylates 02/03/17 02/03/17 02/04/17 16:59 23:38 05:45 WBC RBC Hgb Hct MCV MCH RDW Plt Count Lymph % (Auto) [place]ine % (Auto) Eos % (Auto) Seg Neutrophils % Seg Neuts % (Manual) Lymphocytes % (Manual) Seg Neutrophils # Seg Neutrophils # Man Lymphocytes # (Manual) APTT POC ABG pH ABG pH POC ABG pCO2 POC ABG pO2 ABG pO2 ABG HCO3 ABG Base Excess ABG Hemoglobin VBG pH Oxyhemoglobin Sodium Potassium Chloride Carbon Dioxide BUN Creatinine Glucose POC Glucose 189 H 191 H 251 H Lactic Acid Calcium AST Alkaline Phosphatase CK-MB (CK-2) CK-MB (CK-2) Rel Index Albumin TSH Urine WBC (Auto) Salicylates 02/04/17 02/04/17 02/05/17 11:20 17:20 00:17 WBC RBC Hgb Hct MCV MCH RDW Plt Count Lymph % (Auto) [place]ine % (Auto) Eos % (Auto) Seg Neutrophils % Seg Neuts % (Manual) Lymphocytes % (Manual) Seg Neutrophils # Seg Neutrophils # Man Lymphocytes # (Manual) APTT POC ABG pH ABG pH POC ABG pCO2 POC ABG pO2 ABG pO2 ABG HCO3 ABG Base Excess ABG Hemoglobin VBG pH Oxyhemoglobin Sodium Potassium Chloride Carbon Dioxide BUN Creatinine Glucose POC Glucose 243 H 163 H 200 H Lactic Acid Calcium AST Alkaline Phosphatase CK-MB (CK-2) CK-MB (CK-2) Rel Index Albumin TSH Urine WBC (Auto) Salicylates 02/05/17 02/05/17 02/05/17 05:38 12:38 16:29 WBC RBC Hgb Hct MCV MCH RDW Plt Count Lymph % (Auto) [place]ine % (Auto) Eos % (Auto) Seg Neutrophils % Seg Neuts % (Manual) Lymphocytes % (Manual) Seg Neutrophils # Seg Neutrophils # Man Lymphocytes # (Manual) APTT POC ABG pH ABG pH POC ABG pCO2 POC ABG pO2 ABG pO2 ABG HCO3 ABG Base Excess ABG Hemoglobin VBG pH Oxyhemoglobin Sodium Potassium Chloride Carbon Dioxide BUN Creatinine Glucose POC Glucose 248 H 241 H 257 H Lactic Acid Calcium AST Alkaline Phosphatase CK-MB (CK-2) CK-MB (CK-2) Rel Index Albumin TSH Urine WBC (Auto) Salicylates 02/05/17 02/06/17 02/06/17 23:56 05:30 11:50 WBC RBC Hgb Hct MCV MCH RDW Plt Count Lymph % (Auto) [place]ine % (Auto) Eos % (Auto) Seg Neutrophils % Seg Neuts % (Manual) Lymphocytes % (Manual) Seg Neutrophils # Seg Neutrophils # Man Lymphocytes # (Manual) APTT POC ABG pH ABG pH POC ABG pCO2 POC ABG pO2 ABG pO2 ABG HCO3 ABG Base Excess ABG Hemoglobin VBG pH Oxyhemoglobin Sodium Potassium Chloride Carbon Dioxide BUN Creatinine Glucose POC Glucose 258 H 120 H 254 H Lactic Acid Calcium AST Alkaline Phosphatase CK-MB (CK-2) CK-MB (CK-2) Rel Index Albumin TSH Urine WBC (Auto) Salicylates 02/06/17 02/06/17 02/07/17 17:11 23:50 05:22 WBC RBC Hgb Hct MCV MCH RDW Plt Count Lymph % (Auto) [place]ine % (Auto) Eos % (Auto) Seg Neutrophils % Seg Neuts % (Manual) Lymphocytes % (Manual) Seg Neutrophils # Seg Neutrophils # Man Lymphocytes # (Manual) APTT POC ABG pH ABG pH POC ABG pCO2 POC ABG pO2 ABG pO2 ABG HCO3 ABG Base Excess ABG Hemoglobin VBG pH Oxyhemoglobin Sodium Potassium Chloride Carbon Dioxide BUN Creatinine Glucose POC Glucose 149 H 240 H 258 H Lactic Acid Calcium AST Alkaline Phosphatase CK-MB (CK-2) CK-MB (CK-2) Rel Index Albumin TSH Urine WBC (Auto) Salicylates 02/07/17 02/07/17 02/07/17 11:15 18:33 23:59 WBC RBC Hgb Hct MCV MCH RDW Plt Count Lymph % (Auto) [place]ine % (Auto) Eos % (Auto) Seg Neutrophils % Seg Neuts % (Manual) Lymphocytes % (Manual) Seg Neutrophils # Seg Neutrophils # Man Lymphocytes # (Manual) APTT POC ABG pH ABG pH POC ABG pCO2 POC ABG pO2 ABG pO2 ABG HCO3 ABG Base Excess ABG Hemoglobin VBG pH Oxyhemoglobin Sodium Potassium Chloride Carbon Dioxide BUN Creatinine Glucose POC Glucose 239 H 176 H 186 H Lactic Acid Calcium AST Alkaline Phosphatase CK-MB (CK-2) CK-MB (CK-2) Rel Index Albumin TSH Urine WBC (Auto) Salicylates 02/08/17 02/08/17 02/08/17 06:15 11:55 16:55 WBC RBC Hgb Hct MCV MCH RDW Plt Count Lymph % (Auto) [place]ine % (Auto) Eos % (Auto) Seg Neutrophils % Seg Neuts % (Manual) Lymphocytes % (Manual) Seg Neutrophils # Seg Neutrophils # Man Lymphocytes # (Manual) APTT POC ABG pH ABG pH POC ABG pCO2 POC ABG pO2 ABG pO2 ABG HCO3 ABG Base Excess ABG Hemoglobin VBG pH Oxyhemoglobin Sodium Potassium Chloride Carbon Dioxide BUN Creatinine Glucose POC Glucose 195 H 129 H 246 H Lactic Acid Calcium AST Alkaline Phosphatase CK-MB (CK-2) CK-MB (CK-2) Rel Index Albumin TSH Urine WBC (Auto) Salicylates 02/08/17 02/09/17 02/09/17 23:51 05:51 07:24 WBC 14.7 H RBC 3.39 L Hgb 8.9 L Hct 26.4 L MCV 78 L MCH 26 L RDW 18.4 H Plt Count 670 H Lymph % (Auto) 11.8 L [place]ine % (Auto) Eos % (Auto) Seg Neutrophils % 81.2 H Seg Neuts % (Manual) Lymphocytes % (Manual) Seg Neutrophils # 11.9 H Seg Neutrophils # Man Lymphocytes # (Manual) APTT POC ABG pH ABG pH POC ABG pCO2 POC ABG pO2 ABG pO2 ABG HCO3 ABG Base Excess ABG Hemoglobin VBG pH Oxyhemoglobin Sodium Potassium Chloride Carbon Dioxide BUN Creatinine Glucose POC Glucose 262 H 295 H Lactic Acid Calcium AST Alkaline Phosphatase CK-MB (CK-2) CK-MB (CK-2) Rel Index Albumin TSH Urine WBC (Auto) Salicylates 02/09/17 02/09/17 02/09/17 07:24 12:08 18:39 WBC RBC Hgb Hct MCV MCH RDW Plt Count Lymph % (Auto) [place]ine % (Auto) Eos % (Auto) Seg Neutrophils % Seg Neuts % (Manual) Lymphocytes % (Manual) Seg Neutrophils # Seg Neutrophils # Man Lymphocytes # (Manual) APTT POC ABG pH ABG pH POC ABG pCO2 POC ABG pO2 ABG pO2 ABG HCO3 ABG Base Excess ABG Hemoglobin VBG pH Oxyhemoglobin Sodium Potassium Chloride 95.5 L Carbon Dioxide BUN 52 H Creatinine Glucose 277 H POC Glucose 236 H 151 H Lactic Acid Calcium AST Alkaline Phosphatase CK-MB (CK-2) CK-MB (CK-2) Rel Index Albumin TSH Urine WBC (Auto) Salicylates 02/10/17 02/10/17 02/10/17 00:01 05:44 11:21 WBC RBC Hgb Hct MCV MCH RDW Plt Count Lymph % (Auto) [place]ine % (Auto) Eos % (Auto) Seg Neutrophils % Seg Neuts % (Manual) Lymphocytes % (Manual) Seg Neutrophils # Seg Neutrophils # Man Lymphocytes # (Manual) APTT POC ABG pH ABG pH POC ABG pCO2 POC ABG pO2 ABG pO2 ABG HCO3 ABG Base Excess ABG Hemoglobin VBG pH Oxyhemoglobin Sodium Potassium Chloride Carbon Dioxide BUN Creatinine Glucose POC Glucose 210 H 201 H 233 H Lactic Acid Calcium AST Alkaline Phosphatase CK-MB (CK-2) CK-MB (CK-2) Rel Index Albumin TSH Urine WBC (Auto) Salicylates 02/10/17 02/10/17 02/11/17 17:29 23:56 05:24 WBC RBC Hgb Hct MCV MCH RDW Plt Count Lymph % (Auto) [place]ine % (Auto) Eos % (Auto) Seg Neutrophils % Seg Neuts % (Manual) Lymphocytes % (Manual) Seg Neutrophils # Seg Neutrophils # Man Lymphocytes # (Manual) APTT POC ABG pH ABG pH POC ABG pCO2 POC ABG pO2 ABG pO2 ABG HCO3 ABG Base Excess ABG Hemoglobin VBG pH Oxyhemoglobin Sodium Potassium Chloride Carbon Dioxide BUN Creatinine Glucose POC Glucose 167 H 191 H 135 H Lactic Acid Calcium AST Alkaline Phosphatase CK-MB (CK-2) CK-MB (CK-2) Rel Index Albumin TSH Urine WBC (Auto) Salicylates 02/11/17 02/11/17 02/11/17 12:25 17:03 23:59 WBC RBC Hgb Hct MCV MCH RDW Plt Count Lymph % (Auto) [place]ine % (Auto) Eos % (Auto) Seg Neutrophils % Seg Neuts % (Manual) Lymphocytes % (Manual) Seg Neutrophils # Seg Neutrophils # Man Lymphocytes # (Manual) APTT POC ABG pH ABG pH POC ABG pCO2 POC ABG pO2 ABG pO2 ABG HCO3 ABG Base Excess ABG Hemoglobin VBG pH Oxyhemoglobin Sodium Potassium Chloride Carbon Dioxide BUN Creatinine Glucose POC Glucose 275 H 172 H 215 H Lactic Acid Calcium AST Alkaline Phosphatase CK-MB (CK-2) CK-MB (CK-2) Rel Index Albumin TSH Urine WBC (Auto) Salicylates 02/12/17 02/12/17 02/12/17 05:39 11:33 17:55 WBC RBC Hgb Hct MCV MCH RDW Plt Count Lymph % (Auto) [place]ine % (Auto) Eos % (Auto) Seg Neutrophils % Seg Neuts % (Manual) Lymphocytes % (Manual) Seg Neutrophils # Seg Neutrophils # Man Lymphocytes # (Manual) APTT POC ABG pH ABG pH POC ABG pCO2 POC ABG pO2 ABG pO2 ABG HCO3 ABG Base Excess ABG Hemoglobin VBG pH Oxyhemoglobin Sodium Potassium Chloride Carbon Dioxide BUN Creatinine Glucose POC Glucose 261 H 217 H 172 H Lactic Acid Calcium AST Alkaline Phosphatase CK-MB (CK-2) CK-MB (CK-2) Rel Index Albumin TSH Urine WBC (Auto) Salicylates 02/13/17 02/13/17 02/13/17 00:25 06:46 11:26 WBC RBC Hgb Hct MCV MCH RDW Plt Count Lymph % (Auto) [place]ine % (Auto) Eos % (Auto) Seg Neutrophils % Seg Neuts % (Manual) Lymphocytes % (Manual) Seg Neutrophils # Seg Neutrophils # Man Lymphocytes # (Manual) APTT POC ABG pH ABG pH POC ABG pCO2 POC ABG pO2 ABG pO2 ABG HCO3 ABG Base Excess ABG Hemoglobin VBG pH Oxyhemoglobin Sodium Potassium Chloride Carbon Dioxide BUN Creatinine Glucose POC Glucose 207 H 219 H 231 H Lactic Acid Calcium AST Alkaline Phosphatase CK-MB (CK-2) CK-MB (CK-2) Rel Index Albumin TSH Urine WBC (Auto) Salicylates 02/13/17 02/13/17 02/14/17 17:12 23:44 05:44 WBC RBC Hgb Hct MCV MCH RDW Plt Count Lymph % (Auto) [place]ine % (Auto) Eos % (Auto) Seg Neutrophils % Seg Neuts % (Manual) Lymphocytes % (Manual) Seg Neutrophils # Seg Neutrophils # Man Lymphocytes # (Manual) APTT POC ABG pH ABG pH POC ABG pCO2 POC ABG pO2 ABG pO2 ABG HCO3 ABG Base Excess ABG Hemoglobin VBG pH Oxyhemoglobin Sodium Potassium Chloride Carbon Dioxide BUN Creatinine Glucose POC Glucose 190 H 256 H 184 H Lactic Acid Calcium AST Alkaline Phosphatase CK-MB (CK-2) CK-MB (CK-2) Rel Index Albumin TSH Urine WBC (Auto) Salicylates 02/14/17 02/14/17 02/14/17 12:21 17:57 23:18 WBC RBC Hgb Hct MCV MCH RDW Plt Count Lymph % (Auto) [place]ine % (Auto) Eos % (Auto) Seg Neutrophils % Seg Neuts % (Manual) Lymphocytes % (Manual) Seg Neutrophils # Seg Neutrophils # Man Lymphocytes # (Manual) APTT POC ABG pH ABG pH POC ABG pCO2 POC ABG pO2 ABG pO2 ABG HCO3 ABG Base Excess ABG Hemoglobin VBG pH Oxyhemoglobin Sodium Potassium Chloride Carbon Dioxide BUN Creatinine Glucose POC Glucose 233 H 155 H 165 H Lactic Acid Calcium AST Alkaline Phosphatase CK-MB (CK-2) CK-MB (CK-2) Rel Index Albumin TSH Urine WBC (Auto) Salicylates 02/15/17 02/15/17 02/15/17 05:33 11:45 17:20 WBC RBC Hgb Hct MCV MCH RDW Plt Count Lymph % (Auto) [place]ine % (Auto) Eos % (Auto) Seg Neutrophils % Seg Neuts % (Manual) Lymphocytes % (Manual) Seg Neutrophils # Seg Neutrophils # Man Lymphocytes # (Manual) APTT POC ABG pH ABG pH POC ABG pCO2 POC ABG pO2 ABG pO2 ABG HCO3 ABG Base Excess ABG Hemoglobin VBG pH Oxyhemoglobin Sodium Potassium Chloride Carbon Dioxide BUN Creatinine Glucose POC Glucose 239 H 130 H 189 H Lactic Acid Calcium AST Alkaline Phosphatase CK-MB (CK-2) CK-MB (CK-2) Rel Index Albumin TSH Urine WBC (Auto) Salicylates 02/16/17 02/16/17 02/16/17 00:14 05:09 12:31 WBC RBC Hgb Hct MCV MCH RDW Plt Count Lymph % (Auto) [place]ine % (Auto) Eos % (Auto) Seg Neutrophils % Seg Neuts % (Manual) Lymphocytes % (Manual) Seg Neutrophils # Seg Neutrophils # Man Lymphocytes # (Manual) APTT POC ABG pH ABG pH POC ABG pCO2 POC ABG pO2 ABG pO2 ABG HCO3 ABG Base Excess ABG Hemoglobin VBG pH Oxyhemoglobin Sodium Potassium Chloride Carbon Dioxide BUN Creatinine Glucose POC Glucose 197 H 226 H 178 H Lactic Acid Calcium AST Alkaline Phosphatase CK-MB (CK-2) CK-MB (CK-2) Rel Index Albumin TSH Urine WBC (Auto) Salicylates 02/16/17 02/16/17 02/17/17 16:35 23:49 05:37 WBC RBC Hgb Hct MCV MCH RDW Plt Count Lymph % (Auto) [place]ine % (Auto) Eos % (Auto) Seg Neutrophils % Seg Neuts % (Manual) Lymphocytes % (Manual) Seg Neutrophils # Seg Neutrophils # Man Lymphocytes # (Manual) APTT POC ABG pH ABG pH POC ABG pCO2 POC ABG pO2 ABG pO2 ABG HCO3 ABG Base Excess ABG Hemoglobin VBG pH Oxyhemoglobin Sodium Potassium Chloride Carbon Dioxide BUN Creatinine Glucose POC Glucose 174 H 62 L 153 H Lactic Acid Calcium AST Alkaline Phosphatase CK-MB (CK-2) CK-MB (CK-2) Rel Index Albumin TSH Urine WBC (Auto) Salicylates 02/17/17 02/17/17 02/17/17 11:39 17:02 22:24 WBC RBC Hgb Hct MCV MCH RDW Plt Count Lymph % (Auto) [place]ine % (Auto) Eos % (Auto) Seg Neutrophils % Seg Neuts % (Manual) Lymphocytes % (Manual) Seg Neutrophils # Seg Neutrophils # Man Lymphocytes # (Manual) APTT POC ABG pH ABG pH POC ABG pCO2 POC ABG pO2 ABG pO2 ABG HCO3 ABG Base Excess ABG Hemoglobin VBG pH Oxyhemoglobin Sodium Potassium Chloride Carbon Dioxide BUN Creatinine Glucose POC Glucose 231 H 112 H 116 H Lactic Acid Calcium AST Alkaline Phosphatase CK-MB (CK-2) CK-MB (CK-2) Rel Index Albumin TSH Urine WBC (Auto) Salicylates 02/18/17 02/19/17 02/19/17 15:34 05:09 07:57 WBC RBC Hgb Hct MCV MCH RDW Plt Count Lymph % (Auto) [place]ine % (Auto) Eos % (Auto) Seg Neutrophils % Seg Neuts % (Manual) Lymphocytes % (Manual) Seg Neutrophils # Seg Neutrophils # Man Lymphocytes # (Manual) APTT POC ABG pH ABG pH POC ABG pCO2 POC ABG pO2 ABG pO2 ABG HCO3 ABG Base Excess ABG Hemoglobin VBG pH Oxyhemoglobin Sodium Potassium Chloride Carbon Dioxide BUN Creatinine Glucose POC Glucose 215 H 218 H 283 H Lactic Acid Calcium AST Alkaline Phosphatase CK-MB (CK-2) CK-MB (CK-2) Rel Index Albumin TSH Urine WBC (Auto) Salicylates 1102/19/17 02/20/17 14:49 22:10 05:10 WBC RBC Hgb Hct MCV MCH RDW Plt Count Lymph % (Auto) [place]ine % (Auto) Eos % (Auto) Seg Neutrophils % Seg Neuts % (Manual) Lymphocytes % (Manual) Seg Neutrophils # Seg Neutrophils # Man Lymphocytes # (Manual) APTT POC ABG pH ABG pH POC ABG pCO2 POC ABG pO2 ABG pO2 ABG HCO3 ABG Base Excess ABG Hemoglobin VBG pH Oxyhemoglobin Sodium Potassium Chloride Carbon Dioxide BUN Creatinine Glucose POC Glucose 290 H 169 H 209 H Lactic Acid Calcium AST Alkaline Phosphatase CK-MB (CK-2) CK-MB (CK-2) Rel Index Albumin TSH Urine WBC (Auto) Salicylates 02/20/17 02/20/17 02/21/17 15:05 21:52 02:00 WBC RBC Hgb Hct MCV MCH RDW Plt Count Lymph % (Auto) Josephine % (Auto) Eos % (Auto) Seg Neutrophils % Seg Neuts % (Manual) Lymphocytes % (Manual) Seg Neutrophils # Seg Neutrophils # Man Lymphocytes # (Manual) APTT POC ABG pH ABG pH POC ABG pCO2 POC ABG pO2 ABG pO2 ABG HCO3 ABG Base Excess ABG Hemoglobin VBG pH Oxyhemoglobin Sodium Potassium Chloride Carbon Dioxide BUN Creatinine Glucose POC Glucose 172 H 209 H 216 H Lactic Acid Calcium AST Alkaline Phosphatase CK-MB (CK-2) CK-MB (CK-2) Rel Index Albumin TSH Urine WBC (Auto) Salicylates 02/21/17 02/21/17 02/21/17 04:54 14:43 17:47 WBC RBC Hgb Hct MCV MCH RDW Plt Count Lymph % (Auto) Josephine % (Auto) Eos % (Auto) Seg Neutrophils % Seg Neuts % (Manual) Lymphocytes % (Manual) Seg Neutrophils # Seg Neutrophils # Man Lymphocytes # (Manual) APTT POC ABG pH ABG pH POC ABG pCO2 POC ABG pO2 ABG pO2 ABG HCO3 ABG Base Excess ABG Hemoglobin VBG pH Oxyhemoglobin Sodium Potassium Chloride Carbon Dioxide BUN Creatinine Glucose POC Glucose 227 H 290 H 220 H Lactic Acid Calcium AST Alkaline Phosphatase CK-MB (CK-2) CK-MB (CK-2) Rel Index Albumin TSH Urine WBC (Auto) Salicylates 02/21/17 02/22/17 02/22/17 22:02 04:52 15:25 WBC RBC Hgb Hct MCV MCH RDW Plt Count Lymph % (Auto) Josephine % (Auto) Eos % (Auto) Seg Neutrophils % Seg Neuts % (Manual) Lymphocytes % (Manual) Seg Neutrophils # Seg Neutrophils # Man Lymphocytes # (Manual) APTT POC ABG pH ABG pH POC ABG pCO2 POC ABG pO2 ABG pO2 ABG HCO3 ABG Base Excess ABG Hemoglobin VBG pH Oxyhemoglobin Sodium Potassium Chloride Carbon Dioxide BUN Creatinine Glucose POC Glucose 246 H 212 H 236 H Lactic Acid Calcium AST Alkaline Phosphatase CK-MB (CK-2) CK-MB (CK-2) Rel Index Albumin TSH Urine WBC (Auto) Salicylates 02/22/17 02/23/17 02/23/17 21:33 06:04 10:00 WBC RBC Hgb Hct MCV MCH RDW Plt Count Lymph % (Auto) Josephine % (Auto) Eos % (Auto) Seg Neutrophils % Seg Neuts % (Manual) Lymphocytes % (Manual) Seg Neutrophils # Seg Neutrophils # Man Lymphocytes # (Manual) APTT POC ABG pH ABG pH POC ABG pCO2 POC ABG pO2 ABG pO2 ABG HCO3 ABG Base Excess ABG Hemoglobin VBG pH Oxyhemoglobin Sodium Potassium Chloride Carbon Dioxide BUN Creatinine Glucose POC Glucose 255 H 208 H 174 H Lactic Acid Calcium AST Alkaline Phosphatase CK-MB (CK-2) CK-MB (CK-2) Rel Index Albumin TSH Urine WBC (Auto) Salicylates 02/23/17 02/23/17 02/23/17 12:52 17:15 21:51 WBC RBC Hgb Hct MCV MCH RDW Plt Count Lymph % (Auto) [place] % (Auto) Eos % (Auto) Seg Neutrophils % Seg Neuts % (Manual) Lymphocytes % (Manual) Seg Neutrophils # Seg Neutrophils # Man Lymphocytes # (Manual) APTT POC ABG pH ABG pH POC ABG pCO2 POC ABG pO2 ABG pO2 ABG HCO3 ABG Base Excess ABG Hemoglobin VBG pH Oxyhemoglobin Sodium Potassium Chloride Carbon Dioxide BUN Creatinine Glucose POC Glucose 203 H 269 H 205 H Lactic Acid Calcium AST Alkaline Phosphatase CK-MB (CK-2) CK-MB (CK-2) Rel Index Albumin TSH Urine WBC (Auto) Salicylates 02/24/17 02/24/17 02/24/17 10:23 17:45 21:24 WBC RBC Hgb Hct MCV MCH RDW Plt Count Lymph % (Auto) [place] % (Auto) Eos % (Auto) Seg Neutrophils % Seg Neuts % (Manual) Lymphocytes % (Manual) Seg Neutrophils # Seg Neutrophils # Man Lymphocytes # (Manual) APTT POC ABG pH ABG pH POC ABG pCO2 POC ABG pO2 ABG pO2 ABG HCO3 ABG Base Excess ABG Hemoglobin VBG pH Oxyhemoglobin Sodium Potassium Chloride Carbon Dioxide BUN Creatinine Glucose POC Glucose 280 H 239 H 254 H Lactic Acid Calcium AST Alkaline Phosphatase CK-MB (CK-2) CK-MB (CK-2) Rel Index Albumin TSH Urine WBC (Auto) Salicylates 02/25/17 02/25/17 02/25/17 02:12 05:17 14:32 WBC RBC Hgb Hct MCV MCH RDW Plt Count Lymph % (Auto) [place] % (Auto) Eos % (Auto) Seg Neutrophils % Seg Neuts % (Manual) Lymphocytes % (Manual) Seg Neutrophils # Seg Neutrophils # Man Lymphocytes # (Manual) APTT POC ABG pH ABG pH POC ABG pCO2 POC ABG pO2 ABG pO2 ABG HCO3 ABG Base Excess ABG Hemoglobin VBG pH Oxyhemoglobin Sodium Potassium Chloride Carbon Dioxide BUN Creatinine Glucose POC Glucose 296 H 332 H 353 H Lactic Acid Calcium AST Alkaline Phosphatase CK-MB (CK-2) CK-MB (CK-2) Rel Index Albumin TSH Urine WBC (Auto) Salicylates 02/25/17 02/26/17 02/26/17 22:14 00:37 05:52 WBC RBC Hgb Hct MCV MCH RDW Plt Count Lymph % (Auto) [place] % (Auto) Eos % (Auto) Seg Neutrophils % Seg Neuts % (Manual) Lymphocytes % (Manual) Seg Neutrophils # Seg Neutrophils # Man Lymphocytes # (Manual) APTT POC ABG pH ABG pH POC ABG pCO2 POC ABG pO2 ABG pO2 ABG HCO3 ABG Base Excess ABG Hemoglobin VBG pH Oxyhemoglobin Sodium Potassium Chloride Carbon Dioxide BUN Creatinine Glucose POC Glucose 201 H 233 H 269 H Lactic Acid Calcium AST Alkaline Phosphatase CK-MB (CK-2) CK-MB (CK-2) Rel Index Albumin TSH Urine WBC (Auto) Salicylates 02/26/17 02/26/17 02/26/17 11:48 13:49 21:26 WBC RBC Hgb Hct MCV MCH RDW Plt Count Lymph % (Auto) [place] % (Auto) Eos % (Auto) Seg Neutrophils % Seg Neuts % (Manual) Lymphocytes % (Manual) Seg Neutrophils # Seg Neutrophils # Man Lymphocytes # (Manual) APTT POC ABG pH ABG pH POC ABG pCO2 POC ABG pO2 ABG pO2 ABG HCO3 ABG Base Excess ABG Hemoglobin VBG pH Oxyhemoglobin Sodium Potassium Chloride Carbon Dioxide BUN Creatinine Glucose POC Glucose 333 H 322 H 244 H Lactic Acid Calcium AST Alkaline Phosphatase CK-MB (CK-2) CK-MB (CK-2) Rel Index Albumin TSH Urine WBC (Auto) Salicylates 02/27/17 02/27/17 02/27/17 05:27 13:51 21:48 WBC RBC Hgb Hct MCV MCH RDW Plt Count Lymph % (Auto) [place] % (Auto) Eos % (Auto) Seg Neutrophils % Seg Neuts % (Manual) Lymphocytes % (Manual) Seg Neutrophils # Seg Neutrophils # Man Lymphocytes # (Manual) APTT POC ABG pH ABG pH POC ABG pCO2 POC ABG pO2 ABG pO2 ABG HCO3 ABG Base Excess ABG Hemoglobin VBG pH Oxyhemoglobin Sodium Potassium Chloride Carbon Dioxide BUN Creatinine Glucose POC Glucose 217 H 239 H 254 H Lactic Acid Calcium AST Alkaline Phosphatase CK-MB (CK-2) CK-MB (CK-2) Rel Index Albumin TSH Urine WBC (Auto) Salicylates 02/28/17 02/28/17 02/28/17 05:38 11:00 19:44 WBC RBC Hgb Hct MCV MCH RDW Plt Count Lymph % (Auto) [place] % (Auto) Eos % (Auto) Seg Neutrophils % Seg Neuts % (Manual) Lymphocytes % (Manual) Seg Neutrophils # Seg Neutrophils # Man Lymphocytes # (Manual) APTT POC ABG pH ABG pH POC ABG pCO2 POC ABG pO2 ABG pO2 ABG HCO3 ABG Base Excess ABG Hemoglobin VBG pH Oxyhemoglobin Sodium Potassium Chloride Carbon Dioxide BUN Creatinine Glucose POC Glucose 325 H 203 H 116 H Lactic Acid Calcium AST Alkaline Phosphatase CK-MB (CK-2) CK-MB (CK-2) Rel Index Albumin TSH Urine WBC (Auto) Salicylates 03/01/17 03/01/17 03/01/17 00:08 05:31 12:17 WBC RBC Hgb Hct MCV MCH RDW Plt Count Lymph % (Auto) [place] % (Auto) Eos % (Auto) Seg Neutrophils % Seg Neuts % (Manual) Lymphocytes % (Manual) Seg Neutrophils # Seg Neutrophils # Man Lymphocytes # (Manual) APTT POC ABG pH ABG pH POC ABG pCO2 POC ABG pO2 ABG pO2 ABG HCO3 ABG Base Excess ABG Hemoglobin VBG pH Oxyhemoglobin Sodium Potassium Chloride Carbon Dioxide BUN Creatinine Glucose POC Glucose 202 H 183 H 184 H Lactic Acid Calcium AST Alkaline Phosphatase CK-MB (CK-2) CK-MB (CK-2) Rel Index Albumin TSH Urine WBC (Auto) Salicylates 03/02/17 03/02/17 03/02/17 00:12 05:58 18:22 WBC RBC Hgb Hct MCV MCH RDW Plt Count Lymph % (Auto) [place] % (Auto) Eos % (Auto) Seg Neutrophils % Seg Neuts % (Manual) Lymphocytes % (Manual) Seg Neutrophils # Seg Neutrophils # Man Lymphocytes # (Manual) APTT POC ABG pH ABG pH POC ABG pCO2 POC ABG pO2 ABG pO2 ABG HCO3 ABG Base Excess ABG Hemoglobin VBG pH Oxyhemoglobin Sodium Potassium Chloride Carbon Dioxide BUN Creatinine Glucose POC Glucose 117 H 176 H 156 H Lactic Acid Calcium AST Alkaline Phosphatase CK-MB (CK-2) CK-MB (CK-2) Rel Index Albumin TSH Urine WBC (Auto) Salicylates 03/02/17 03/03/17 03/03/17 23:51 05:44 11:32 WBC RBC Hgb Hct MCV MCH RDW Plt Count Lymph % (Auto) [place] % (Auto) Eos % (Auto) Seg Neutrophils % Seg Neuts % (Manual) Lymphocytes % (Manual) Seg Neutrophils # Seg Neutrophils # Man Lymphocytes # (Manual) APTT POC ABG pH ABG pH POC ABG pCO2 POC ABG pO2 ABG pO2 ABG HCO3 ABG Base Excess ABG Hemoglobin VBG pH Oxyhemoglobin Sodium Potassium Chloride Carbon Dioxide BUN Creatinine Glucose POC Glucose 211 H 117 H 133 H Lactic Acid Calcium AST Alkaline Phosphatase CK-MB (CK-2) CK-MB (CK-2) Rel Index Albumin TSH Urine WBC (Auto) Salicylates 03/03/17 03/03/17 03/04/17 17:43 23:17 05:30 WBC RBC Hgb Hct MCV MCH RDW Plt Count Lymph % (Auto) [place] % (Auto) Eos % (Auto) Seg Neutrophils % Seg Neuts % (Manual) Lymphocytes % (Manual) Seg Neutrophils # Seg Neutrophils # Man Lymphocytes # (Manual) APTT POC ABG pH ABG pH POC ABG pCO2 POC ABG pO2 ABG pO2 ABG HCO3 ABG Base Excess ABG Hemoglobin VBG pH Oxyhemoglobin Sodium Potassium Chloride Carbon Dioxide BUN Creatinine Glucose POC Glucose 206 H 170 H 126 H Lactic Acid Calcium AST Alkaline Phosphatase CK-MB (CK-2) CK-MB (CK-2) Rel Index Albumin TSH Urine WBC (Auto) Salicylates 03/04/17 03/04/17 03/05/17 12:17 17:27 05:20 WBC RBC Hgb Hct MCV MCH RDW Plt Count Lymph % (Auto) [place] % (Auto) Eos % (Auto) Seg Neutrophils % Seg Neuts % (Manual) Lymphocytes % (Manual) Seg Neutrophils # Seg Neutrophils # Man Lymphocytes # (Manual) APTT POC ABG pH ABG pH POC ABG pCO2 POC ABG pO2 ABG pO2 ABG HCO3 ABG Base Excess ABG Hemoglobin VBG pH Oxyhemoglobin Sodium Potassium Chloride Carbon Dioxide BUN Creatinine Glucose POC Glucose 135 H 121 H 185 H Lactic Acid Calcium AST Alkaline Phosphatase CK-MB (CK-2) CK-MB (CK-2) Rel Index Albumin TSH Urine WBC (Auto) Salicylates 03/05/17 03/06/17 03/06/17 11:50 11:52 17:34 WBC RBC Hgb Hct MCV MCH RDW Plt Count Lymph % (Auto) [place] % (Auto) Eos % (Auto) Seg Neutrophils % Seg Neuts % (Manual) Lymphocytes % (Manual) Seg Neutrophils # Seg Neutrophils # Man Lymphocytes # (Manual) APTT POC ABG pH ABG pH POC ABG pCO2 POC ABG pO2 ABG pO2 ABG HCO3 ABG Base Excess ABG Hemoglobin VBG pH Oxyhemoglobin Sodium Potassium Chloride Carbon Dioxide BUN Creatinine Glucose POC Glucose 116 H 133 H 181 H Lactic Acid Calcium AST Alkaline Phosphatase CK-MB (CK-2) CK-MB (CK-2) Rel Index Albumin TSH Urine WBC (Auto) Salicylates 03/07/17 03/07/17 03/07/17 05:21 11:36 17:49 WBC RBC Hgb Hct MCV MCH RDW Plt Count Lymph % (Auto) [place] % (Auto) Eos % (Auto) Seg Neutrophils % Seg Neuts % (Manual) Lymphocytes % (Manual) Seg Neutrophils # Seg Neutrophils # Man Lymphocytes # (Manual) APTT POC ABG pH ABG pH POC ABG pCO2 POC ABG pO2 ABG pO2 ABG HCO3 ABG Base Excess ABG Hemoglobin VBG pH Oxyhemoglobin Sodium Potassium Chloride Carbon Dioxide BUN Creatinine Glucose POC Glucose 159 H 137 H 158 H Lactic Acid Calcium AST Alkaline Phosphatase CK-MB (CK-2) CK-MB (CK-2) Rel Index Albumin TSH Urine WBC (Auto) Salicylates 03/08/17 03/08/17 03/08/17 05:51 13:58 23:50 WBC RBC Hgb Hct MCV MCH RDW Plt Count Lymph % (Auto) [place] % (Auto) Eos % (Auto) Seg Neutrophils % Seg Neuts % (Manual) Lymphocytes % (Manual) Seg Neutrophils # Seg Neutrophils # Man Lymphocytes # (Manual) APTT POC ABG pH ABG pH POC ABG pCO2 POC ABG pO2 ABG pO2 ABG HCO3 ABG Base Excess ABG Hemoglobin VBG pH Oxyhemoglobin Sodium Potassium Chloride Carbon Dioxide BUN Creatinine Glucose POC Glucose 122 H 182 H 114 H Lactic Acid Calcium AST Alkaline Phosphatase CK-MB (CK-2) CK-MB (CK-2) Rel Index Albumin TSH Urine WBC (Auto) Salicylates 03/09/17 03/09/17 03/09/17 05:21 05:51 05:51 WBC RBC 3.61 L Hgb 9.5 L Hct 28.3 L MCV 79 L MCH 26 L RDW 17.8 H Plt Count Lymph % (Auto) [place] % (Auto) Eos % (Auto) Seg Neutrophils % Seg Neuts % (Manual) Lymphocytes % (Manual) Seg Neutrophils # Seg Neutrophils # Man Lymphocytes # (Manual) APTT POC ABG pH ABG pH POC ABG pCO2 POC ABG pO2 ABG pO2 ABG HCO3 ABG Base Excess ABG Hemoglobin VBG pH Oxyhemoglobin Sodium 134 L Potassium Chloride 95.5 L Carbon Dioxide BUN 33 H Creatinine 0.5 L Glucose 143 H POC Glucose 153 H Lactic Acid Calcium AST Alkaline Phosphatase CK-MB (CK-2) CK-MB (CK-2) Rel Index Albumin TSH Urine WBC (Auto) Salicylates 03/09/17 03/09/17 03/09/17 12:10 18:13 21:00 WBC RBC Hgb Hct MCV MCH RDW Plt Count Lymph % (Auto) [place] % (Auto) Eos % (Auto) Seg Neutrophils % Seg Neuts % (Manual) Lymphocytes % (Manual) Seg Neutrophils # Seg Neutrophils # Man Lymphocytes # (Manual) APTT POC ABG pH ABG pH POC ABG pCO2 POC ABG pO2 ABG pO2 ABG HCO3 ABG Base Excess ABG Hemoglobin VBG pH Oxyhemoglobin Sodium Potassium Chloride Carbon Dioxide BUN Creatinine Glucose POC Glucose 203 H 221 H 198 H Lactic Acid Calcium AST Alkaline Phosphatase CK-MB (CK-2) CK-MB (CK-2) Rel Index Albumin TSH Urine WBC (Auto) Salicylates 03/09/17 03/10/17 03/10/17 23:58 05:09 05:09 WBC RBC Hgb 10.3 L Hct 30.5 L MCV 78 L MCH 26 L RDW 17.9 H Plt Count Lymph % (Auto) [place] % (Auto) 10.0 H Eos % (Auto) 6.0 H Seg Neutrophils % Seg Neuts % (Manual) Lymphocytes % (Manual) Seg Neutrophils # Seg Neutrophils # Man Lymphocytes # (Manual) APTT POC ABG pH ABG pH POC ABG pCO2 POC ABG pO2 ABG pO2 ABG HCO3 ABG Base Excess ABG Hemoglobin VBG pH Oxyhemoglobin Sodium 132 L Potassium Chloride 92.2 L Carbon Dioxide BUN 33 H Creatinine 0.5 L Glucose 50 L POC Glucose 167 H Lactic Acid Calcium AST Alkaline Phosphatase CK-MB (CK-2) CK-MB (CK-2) Rel Index Albumin TSH Urine WBC (Auto) Salicylates 03/10/17 03/10/17 03/10/17 05:33 05:34 11:48 WBC RBC Hgb Hct MCV MCH RDW Plt Count Lymph % (Auto) [place] % (Auto) Eos % (Auto) Seg Neutrophils % Seg Neuts % (Manual) Lymphocytes % (Manual) Seg Neutrophils # Seg Neutrophils # Man Lymphocytes # (Manual) APTT POC ABG pH ABG pH POC ABG pCO2 POC ABG pO2 ABG pO2 ABG HCO3 ABG Base Excess ABG Hemoglobin VBG pH Oxyhemoglobin Sodium Potassium Chloride Carbon Dioxide BUN Creatinine Glucose POC Glucose 52 L 53 L 148 H Lactic Acid Calcium AST Alkaline Phosphatase CK-MB (CK-2) CK-MB (CK-2) Rel Index Albumin TSH Urine WBC (Auto) Salicylates Chest x-ray: report reviewed, image reviewed
[2017-03-11] MEDS: HumuLIN R SUB-Q SCH ×3 (00:23→12:29)
[2017-03-11] MEDS: SYNTHROID PO SCH (06:11)
[2017-03-11] MEDS: PEPCID PO SCH ×2 (10:45→21:17)
--- NOTE | 2017-03-11 12:52 | Progress Note ---
Assessment and Plan Imp: 1. Hypoglycemia/hypothermia -> suspect due to too much insulin 2. Hypothyroidism; doubt myxedema coma with normal free T4 3. Acute respiratory failure, hypoxia 4. UTI/SIRS 5. Metabolic encephalopathy Rec: 1. GI/DVT PPx/TFs 2. Reviewed chart; ethics note 01/18/17 recommended AND and "hospice"; trying to get guardianship to sign necessary orders for this (however, I was told they are not willing to sign for withdrawal of ventilator); further care felt to be futile and would only prolong potential suffering without affecting ultimate outcome 3. Comfort care, no escalation of care; would not check any further labs, etc. 4. Poor prognosis Unable to locate family. Subjective Date of service: 03/11/17 Principal diagnosis: Acute respiratory failure,encephalopathy Interval history: No events. On vent. Unresponsive. Active Medications Acetaminophen (Tylenol) 650 mg FEEDTUBE Q6H PRN PRN Reason: Non Cardiac Pain Or Temp>101 Last Admin: 02/27/17 19:34 Dose: 650 mg Lipase/Protease/Amylase (Pancreashley Dr 10,500 Unit) 1 each FEEDTUBE PRN PRN PRN Reason: For Clogged Feeding Tube Dextrose (D50w (25gm) Vial) 50 gm IV PRN PRN PRN Reason: Hypoglycemia Last Admin: 03/10/17 05:42 Dose: 50 gm Famotidine (Pepcid) 20 mg PO BID [facility] Last Admin: 03/11/17 10:45 Dose: 20 mg Hydrophilic Ointment (Vaseline Lip Therapy) 1 applic TP Q2HR PRN PRN Reason: Dry Lips Insulin Detemir (Levemir) 15 units SUB-Q DAILY [facility] Last Admin: 03/09/17 10:15 Dose: 15 units Insulin Human Regular (Novolin R) 0 units SUB-Q Q6HR [facility] PRN Reason: Protocol Last Admin: 03/11/17 12:29 Dose: 3 units Levothyroxine Sodium (Synthroid) 100 mcg PO DAILY@0600 [facility] Last Admin: 03/11/17 06:11 Dose: 100 mcg Loperamide HCl (Imodium) 2 mg PO Q2H PRN PRN Reason: Diarrhea Last Admin: 03/04/17 12:35 Dose: 2 mg Multi-Ingred Cream/Lotion/Oil/Oint (Artificial Tears Ophth Oint) 1 applic OU Q4HR PRN PRN Reason: Dry Eye(s) Simple Syrup (Simple Syrup) 15 ml FEEDTUBE PRN PRN PRN Reason: Hypoglycemia Last Admin: 02/28/17 18:56 Dose: 15 ml Simple Syrup (Simple Syrup) 30 ml FEEDTUBE PRN PRN PRN Reason: Hypoglycemia Sodium Bicarbonate (Sodium Bicarbonate) 325 mg FEEDTUBE PRN PRN PRN Reason: For Clogged Feeding Tube Objective Vital Signs - 12hr 03/11/17 03/11/17 03/11/17 02:00 03:19 03:55 Temperature 98.9 F Pulse Rate 71 77 Respiratory 13 Rate Blood Pressure 130/86 O2 Sat by Pulse 100 Oximetry 03/11/17 03/11/17 03/11/17 04:00 06:00 07:27 Temperature Pulse Rate 77 89 81 Respiratory 13 21 Rate Blood Pressure 118/80 114/85 114/85 O2 Sat by Pulse 100 72 L 100 Oximetry 03/11/17 03/11/17 03/11/17 08:00 10:00 12:00 Temperature 97.9 F Pulse Rate 79 92 H 85 Respiratory 15 28 H Rate Blood Pressure 114/85 115/74 107/69 O2 Sat by Pulse 99 100 100 Oximetry Constitutional: no acute distress, alert, other (orally intubated, on vent support) Eyes: non-icteric ENT: oropharynx moist Neck: supple Effort: normal Ascultation: Bilateral: clear, diminished breath sounds Cardiovascular: regular rate and rhythm Gastrointestinal: normoactive bowel sounds, soft, non-tender, non-distended Integumentary: normal Extremities: no cyanosis, no edema, pink and warm Neurologic: other (awake spontaneously, not not following any commands. Fixed stare.) Psychiatric: other (unable to obtain) CBC and BMP: 03/10/17 05:09 03/10/17 05:09 ABG, PT/INR, D-dimer: ABG POC ABG pH 7.442 (7.35-7.45) 01/31/17 18:55 ABG pH 7.420 pH Units (7.350-7.450) 01/17/17 04:35 POC ABG pCO2 32.8 (35-45) L 01/31/17 18:55 ABG pCO2 34.5 mm Hg 01/17/17 04:35 POC ABG pO2 82 (80-105) 01/31/17 18:55 ABG pO2 160.3 mm Hg (80.0-90.0) H 01/17/17 04:35 POC ABG HCO3 22.4 01/31/17 18:55 POC ABG Total CO2 23 01/31/17 18:55 POC ABG O2 Sat 97 01/31/17 18:55 ABG O2 Saturation 99.0 % (95.0-99.0) 01/17/17 04:35 PT/INR, D-dimer PT 14.1 Sec. (12.2-14.9) 01/17/17 04:10 INR 1.04 (0.87-1.13) 01/17/17 04:10 Abnormal lab findings: Abnormal Labs 01/09/17 01/09/17 01/09/17 10:16 10:16 10:16 WBC RBC Hgb 9.7 L Hct 28.4 L MCV 76 L MCH 26 L RDW 17.2 H Plt Count 448 H Lymph % (Auto) Luce % (Auto) Eos % (Auto) Seg Neutrophils % 79.5 H Seg Neuts % (Manual) Lymphocytes % (Manual) Seg Neutrophils # Seg Neutrophils # Man Lymphocytes # (Manual) APTT 39.6 H POC ABG pH ABG pH POC ABG pCO2 POC ABG pO2 ABG pO2 ABG HCO3 ABG Base Excess ABG Hemoglobin VBG pH Oxyhemoglobin Sodium 132 L Potassium Chloride 96.7 L Carbon Dioxide 21 L BUN 34 H Creatinine Glucose POC Glucose Lactic Acid Calcium 8.3 L AST Alkaline Phosphatase 151 H CK-MB (CK-2) 7.1 H CK-MB (CK-2) Rel Index 5.2 H Albumin 3.3 L TSH Urine WBC (Auto) Salicylates 01/09/17 01/09/17 01/09/17 10:16 10:16 10:16 WBC RBC Hgb Hct MCV MCH RDW Plt Count Lymph % (Auto) Luce % (Auto) Eos % (Auto) Seg Neutrophils % Seg Neuts % (Manual) Lymphocytes % (Manual) Seg Neutrophils # Seg Neutrophils # Man Lymphocytes # (Manual) APTT POC ABG pH ABG pH POC ABG pCO2 POC ABG pO2 ABG pO2 ABG HCO3 ABG Base Excess ABG Hemoglobin VBG pH 7.284 L Oxyhemoglobin Sodium Potassium Chloride Carbon Dioxide BUN Creatinine Glucose POC Glucose Lactic Acid Calcium AST Alkaline Phosphatase CK-MB (CK-2) CK-MB (CK-2) Rel Index Albumin TSH 52.800 H Urine WBC (Auto) Salicylates < 0.3 L 01/09/17 01/09/17 01/09/17 10:23 11:14 12:49 WBC RBC Hgb Hct MCV MCH RDW Plt Count Lymph % (Auto) Luce % (Auto) Eos % (Auto) Seg Neutrophils % Seg Neuts % (Manual) Lymphocytes % (Manual) Seg Neutrophils # Seg Neutrophils # Man Lymphocytes # (Manual) APTT POC ABG pH ABG pH POC ABG pCO2 POC ABG pO2 643 H ABG pO2 ABG HCO3 ABG Base Excess ABG Hemoglobin VBG pH Oxyhemoglobin Sodium Potassium Chloride Carbon Dioxide BUN Creatinine Glucose POC Glucose < 40 L Lactic Acid Calcium AST Alkaline Phosphatase CK-MB (CK-2) CK-MB (CK-2) Rel Index Albumin TSH Urine WBC (Auto) 61.0 H Salicylates 01/09/17 01/09/17 01/09/17 13:13 14:21 15:09 WBC RBC Hgb Hct MCV MCH RDW Plt Count Lymph % (Auto) Luce % (Auto) Eos % (Auto) Seg Neutrophils % Seg Neuts % (Manual) Lymphocytes % (Manual) Seg Neutrophils # Seg Neutrophils # Man Lymphocytes # (Manual) APTT POC ABG pH ABG pH POC ABG pCO2 POC ABG pO2 ABG pO2 ABG HCO3 ABG Base Excess ABG Hemoglobin VBG pH Oxyhemoglobin Sodium Potassium Chloride Carbon Dioxide BUN Creatinine Glucose POC Glucose 128 H 65 L 120 H Lactic Acid Calcium AST Alkaline Phosphatase CK-MB (CK-2) CK-MB (CK-2) Rel Index Albumin TSH Urine WBC (Auto) Salicylates 01/09/17 01/09/17 01/10/17 16:28 17:14 04:30 WBC 24.1 H RBC 3.38 L Hgb 8.5 L Hct 26.0 L MCV 77 L MCH 25 L RDW 17.9 H Plt Count 474 H Lymph % (Auto) Luce % (Auto) Eos % (Auto) Seg Neutrophils % Seg Neuts % (Manual) 88.0 H Lymphocytes % (Manual) 4.0 L Seg Neutrophils # Seg Neutrophils # Man 21.2 H Lymphocytes # (Manual) 1.0 L APTT POC ABG pH ABG pH POC ABG pCO2 POC ABG pO2 ABG pO2 ABG HCO3 ABG Base Excess ABG Hemoglobin VBG pH Oxyhemoglobin Sodium Potassium Chloride Carbon Dioxide BUN Creatinine Glucose POC Glucose 44 L 112 H Lactic Acid Calcium AST Alkaline Phosphatase CK-MB (CK-2) CK-MB (CK-2) Rel Index Albumin TSH Urine WBC (Auto) Salicylates 01/10/17 01/10/17 01/10/17 04:30 05:41 05:45 WBC RBC Hgb Hct MCV MCH RDW Plt Count Lymph % (Auto) Luce % (Auto) Eos % (Auto) Seg Neutrophils % Seg Neuts % (Manual) Lymphocytes % (Manual) Seg Neutrophils # Seg Neutrophils # Man Lymphocytes # (Manual) APTT POC ABG pH ABG pH POC ABG pCO2 26.6 L POC ABG pO2 207 H ABG pO2 ABG HCO3 ABG Base Excess ABG Hemoglobin VBG pH Oxyhemoglobin Sodium Potassium Chloride Carbon Dioxide 17 L BUN 27 H Creatinine Glucose POC Glucose 68 L Lactic Acid Calcium 7.5 L AST Alkaline Phosphatase CK-MB (CK-2) CK-MB (CK-2) Rel Index Albumin TSH Urine WBC (Auto) Salicylates 01/10/17 01/10/17 01/10/17 07:47 10:50 13:41 WBC RBC Hgb Hct MCV MCH RDW Plt Count Lymph % (Auto) Luce % (Auto) Eos % (Auto) Seg Neutrophils % Seg Neuts % (Manual) Lymphocytes % (Manual) Seg Neutrophils # Seg Neutrophils # Man Lymphocytes # (Manual) APTT POC ABG pH ABG pH POC ABG pCO2 POC ABG pO2 ABG pO2 ABG HCO3 ABG Base Excess ABG Hemoglobin VBG pH Oxyhemoglobin Sodium Potassium Chloride Carbon Dioxide BUN Creatinine Glucose POC Glucose 148 H 165 H 114 H Lactic Acid Calcium AST Alkaline Phosphatase CK-MB (CK-2) CK-MB (CK-2) Rel Index Albumin TSH Urine WBC (Auto) Salicylates 01/10/17 01/10/17 01/10/17 20:20 21:39 23:24 WBC RBC Hgb Hct MCV MCH RDW Plt Count Lymph % (Auto) Luce % (Auto) Eos % (Auto) Seg Neutrophils % Seg Neuts % (Manual) Lymphocytes % (Manual) Seg Neutrophils # Seg Neutrophils # Man Lymphocytes # (Manual) APTT POC ABG pH ABG pH POC ABG pCO2 POC ABG pO2 ABG pO2 ABG HCO3 ABG Base Excess ABG Hemoglobin VBG pH Oxyhemoglobin Sodium Potassium Chloride Carbon Dioxide BUN Creatinine Glucose POC Glucose 150 H 175 H 155 H Lactic Acid Calcium AST Alkaline Phosphatase CK-MB (CK-2) CK-MB (CK-2) Rel Index Albumin TSH Urine WBC (Auto) Salicylates 01/11/17 01/11/17 01/11/17 00:19 04:06 05:20 WBC 15.2 H RBC 3.40 L Hgb 8.9 L Hct 26.3 L MCV 78 L MCH 26 L RDW 18.6 H Plt Count 462 H Lymph % (Auto) 13.2 L Luce % (Auto) Eos % (Auto) Seg Neutrophils % 80.8 H Seg Neuts % (Manual) Lymphocytes % (Manual) Seg Neutrophils # 12.3 H Seg Neutrophils # Man Lymphocytes # (Manual) APTT POC ABG pH 7.463 H ABG pH POC ABG pCO2 26.2 L POC ABG pO2 185 H ABG pO2 ABG HCO3 ABG Base Excess ABG Hemoglobin VBG pH Oxyhemoglobin Sodium Potassium Chloride Carbon Dioxide BUN Creatinine Glucose POC Glucose 163 H Lactic Acid Calcium AST Alkaline Phosphatase CK-MB (CK-2) CK-MB (CK-2) Rel Index Albumin TSH Urine WBC (Auto) Salicylates 01/11/17 01/11/17 01/11/17 05:20 06:21 07:57 WBC RBC Hgb Hct MCV MCH RDW Plt Count Lymph % (Auto) Luce % (Auto) Eos % (Auto) Seg Neutrophils % Seg Neuts % (Manual) Lymphocytes % (Manual) Seg Neutrophils # Seg Neutrophils # Man Lymphocytes # (Manual) APTT POC ABG pH ABG pH POC ABG pCO2 POC ABG pO2 ABG pO2 ABG HCO3 ABG Base Excess ABG Hemoglobin VBG pH Oxyhemoglobin Sodium Potassium 3.4 L Chloride 111.5 H Carbon Dioxide 17 L BUN Creatinine Glucose 147 H POC Glucose 139 H 188 H Lactic Acid Calcium 8.0 L AST Alkaline Phosphatase CK-MB (CK-2) CK-MB (CK-2) Rel Index Albumin TSH Urine WBC (Auto) Salicylates 01/11/17 01/11/17 01/11/17 11:46 16:50 23:15 WBC RBC Hgb Hct MCV MCH RDW Plt Count Lymph % (Auto) Luce % (Auto) Eos % (Auto) Seg Neutrophils % Seg Neuts % (Manual) Lymphocytes % (Manual) Seg Neutrophils # Seg Neutrophils # Man Lymphocytes # (Manual) APTT POC ABG pH ABG pH POC ABG pCO2 POC ABG pO2 ABG pO2 ABG HCO3 ABG Base Excess ABG Hemoglobin VBG pH Oxyhemoglobin Sodium Potassium Chloride Carbon Dioxide BUN Creatinine Glucose POC Glucose 199 H 235 H 155 H Lactic Acid Calcium AST Alkaline Phosphatase CK-MB (CK-2) CK-MB (CK-2) Rel Index Albumin TSH Urine WBC (Auto) Salicylates 01/12/17 01/12/17 01/12/17 05:02 06:56 14:50 WBC RBC Hgb Hct MCV MCH RDW Plt Count Lymph % (Auto) Luce % (Auto) Eos % (Auto) Seg Neutrophils % Seg Neuts % (Manual) Lymphocytes % (Manual) Seg Neutrophils # Seg Neutrophils # Man Lymphocytes # (Manual) APTT POC ABG pH ABG pH POC ABG pCO2 28.0 L POC ABG pO2 178 H ABG pO2 ABG HCO3 ABG Base Excess ABG Hemoglobin VBG pH Oxyhemoglobin Sodium Potassium Chloride Carbon Dioxide BUN Creatinine Glucose POC Glucose 119 H 164 H Lactic Acid Calcium AST Alkaline Phosphatase CK-MB (CK-2) CK-MB (CK-2) Rel Index Albumin TSH Urine WBC (Auto) Salicylates 01/13/17 01/13/17 01/13/17 03:37 03:37 04:26 WBC RBC 3.61 L Hgb 9.3 L Hct 28.0 L MCV 78 L MCH 26 L RDW 18.2 H Plt Count Lymph % (Auto) Luce % (Auto) Eos % (Auto) Seg Neutrophils % Seg Neuts % (Manual) Lymphocytes % (Manual) Seg Neutrophils # Seg Neutrophils # Man Lymphocytes # (Manual) APTT POC ABG pH 7.485 H ABG pH POC ABG pCO2 25.4 L POC ABG pO2 73 L ABG pO2 ABG HCO3 ABG Base Excess ABG Hemoglobin VBG pH Oxyhemoglobin Sodium Potassium Chloride 112.4 H Carbon Dioxide 19 L BUN Creatinine Glucose 118 H POC Glucose Lactic Acid Calcium 8.0 L AST Alkaline Phosphatase CK-MB (CK-2) CK-MB (CK-2) Rel Index Albumin TSH Urine WBC (Auto) Salicylates 01/13/17 01/13/17 01/13/17 06:15 11:50 17:31 WBC RBC Hgb Hct MCV MCH RDW Plt Count Lymph % (Auto) Luce % (Auto) Eos % (Auto) Seg Neutrophils % Seg Neuts % (Manual) Lymphocytes % (Manual) Seg Neutrophils # Seg Neutrophils # Man Lymphocytes # (Manual) APTT POC ABG pH ABG pH POC ABG pCO2 POC ABG pO2 ABG pO2 ABG HCO3 ABG Base Excess ABG Hemoglobin VBG pH Oxyhemoglobin Sodium Potassium Chloride Carbon Dioxide BUN Creatinine Glucose POC Glucose 116 H 171 H 203 H Lactic Acid Calcium AST Alkaline Phosphatase CK-MB (CK-2) CK-MB (CK-2) Rel Index Albumin TSH Urine WBC (Auto) Salicylates 01/14/17 01/14/17 01/14/17 00:02 04:50 04:50 WBC RBC 3.32 L Hgb 8.5 L Hct 26.1 L MCV 79 L MCH 26 L RDW 18.2 H Plt Count Lymph % (Auto) Luce % (Auto) 9.0 H Eos % (Auto) Seg Neutrophils % Seg Neuts % (Manual) Lymphocytes % (Manual) Seg Neutrophils # Seg Neutrophils # Man Lymphocytes # (Manual) APTT POC ABG pH ABG pH POC ABG pCO2 POC ABG pO2 ABG pO2 ABG HCO3 ABG Base Excess ABG Hemoglobin VBG pH Oxyhemoglobin Sodium Potassium Chloride 112.5 H Carbon Dioxide BUN Creatinine Glucose 149 H POC Glucose 157 H Lactic Acid Calcium 8.1 L AST Alkaline Phosphatase CK-MB (CK-2) CK-MB (CK-2) Rel Index Albumin TSH Urine WBC (Auto) Salicylates 01/14/17 01/14/17 01/14/17 05:10 11:27 14:07 WBC RBC Hgb Hct MCV MCH RDW Plt Count Lymph % (Auto) Luce % (Auto) Eos % (Auto) Seg Neutrophils % Seg Neuts % (Manual) Lymphocytes % (Manual) Seg Neutrophils # Seg Neutrophils # Man Lymphocytes # (Manual) APTT POC ABG pH ABG pH POC ABG pCO2 POC ABG pO2 ABG pO2 ABG HCO3 ABG Base Excess ABG Hemoglobin VBG pH Oxyhemoglobin Sodium Potassium Chloride Carbon Dioxide BUN Creatinine Glucose POC Glucose 176 H 147 H Lactic Acid Calcium AST Alkaline Phosphatase CK-MB (CK-2) CK-MB (CK-2) Rel Index Albumin TSH Urine WBC (Auto) 53.0 H Salicylates 01/14/17 01/15/17 01/15/17 16:52 00:04 05:26 WBC RBC Hgb Hct MCV MCH RDW Plt Count Lymph % (Auto) Luce % (Auto) Eos % (Auto) Seg Neutrophils % Seg Neuts % (Manual) Lymphocytes % (Manual) Seg Neutrophils # Seg Neutrophils # Man Lymphocytes # (Manual) APTT POC ABG pH ABG pH POC ABG pCO2 POC ABG pO2 ABG pO2 ABG HCO3 ABG Base Excess ABG Hemoglobin VBG pH Oxyhemoglobin Sodium Potassium Chloride Carbon Dioxide BUN Creatinine Glucose POC Glucose 131 H 193 H 215 H Lactic Acid Calcium AST Alkaline Phosphatase CK-MB (CK-2) CK-MB (CK-2) Rel Index Albumin TSH Urine WBC (Auto) Salicylates 01/15/17 01/15/17 01/15/17 11:49 17:47 21:33 WBC RBC Hgb Hct MCV MCH RDW Plt Count Lymph % (Auto) Luce % (Auto) Eos % (Auto) Seg Neutrophils % Seg Neuts % (Manual) Lymphocytes % (Manual) Seg Neutrophils # Seg Neutrophils # Man Lymphocytes # (Manual) APTT POC ABG pH ABG pH POC ABG pCO2 POC ABG pO2 ABG pO2 ABG HCO3 ABG Base Excess ABG Hemoglobin VBG pH Oxyhemoglobin Sodium Potassium Chloride Carbon Dioxide BUN Creatinine Glucose POC Glucose 121 H 211 H 275 H Lactic Acid Calcium AST Alkaline Phosphatase CK-MB (CK-2) CK-MB (CK-2) Rel Index Albumin TSH Urine WBC (Auto) Salicylates 01/16/17 01/16/17 01/16/17 04:30 05:28 13:45 WBC RBC Hgb Hct MCV MCH RDW Plt Count Lymph % (Auto) Luce % (Auto) Eos % (Auto) Seg Neutrophils % Seg Neuts % (Manual) Lymphocytes % (Manual) Seg Neutrophils # Seg Neutrophils # Man Lymphocytes # (Manual) APTT POC ABG pH ABG pH 7.457 H POC ABG pCO2 POC ABG pO2 ABG pO2 55.1 L ABG HCO3 19.4 L ABG Base Excess -4.0 L ABG Hemoglobin 6.8 L VBG pH Oxyhemoglobin 94.9 L Sodium Potassium Chloride Carbon Dioxide BUN Creatinine Glucose POC Glucose 271 H 236 H Lactic Acid Calcium AST Alkaline Phosphatase CK-MB (CK-2) CK-MB (CK-2) Rel Index Albumin TSH Urine WBC (Auto) Salicylates 01/16/17 01/17/17 01/17/17 21:39 04:10 04:10 WBC 4.4 L RBC 2.98 L Hgb 7.7 L Hct 23.3 L MCV 78 L MCH 26 L RDW 18.1 H Plt Count Lymph % (Auto) Luce % (Auto) Eos % (Auto) Seg Neutrophils % Seg Neuts % (Manual) Lymphocytes % (Manual) Seg Neutrophils # Seg Neutrophils # Man Lymphocytes # (Manual) APTT POC ABG pH ABG pH POC ABG pCO2 POC ABG pO2 ABG pO2 ABG HCO3 ABG Base Excess ABG Hemoglobin VBG pH Oxyhemoglobin Sodium Potassium 3.3 L Chloride 108.7 H Carbon Dioxide 20 L BUN 8 L Creatinine Glucose 202 H POC Glucose 258 H Lactic Acid Calcium 7.6 L AST Alkaline Phosphatase CK-MB (CK-2) CK-MB (CK-2) Rel Index Albumin TSH Urine WBC (Auto) Salicylates 01/17/17 01/17/17 01/17/17 04:35 12:23 16:01 WBC RBC Hgb Hct MCV MCH RDW Plt Count Lymph % (Auto) Luce % (Auto) Eos % (Auto) Seg Neutrophils % Seg Neuts % (Manual) Lymphocytes % (Manual) Seg Neutrophils # Seg Neutrophils # Man Lymphocytes # (Manual) APTT POC ABG pH ABG pH POC ABG pCO2 POC ABG pO2 ABG pO2 160.3 H ABG HCO3 ABG Base Excess -2.3 L ABG Hemoglobin 7.9 L VBG pH Oxyhemoglobin Sodium Potassium Chloride Carbon Dioxide BUN Creatinine Glucose POC Glucose 321 H 239 H Lactic Acid Calcium AST Alkaline Phosphatase CK-MB (CK-2) CK-MB (CK-2) Rel Index Albumin TSH Urine WBC (Auto) Salicylates 01/18/17 01/18/17 01/18/17 05:07 12:09 17:54 WBC RBC Hgb Hct MCV MCH RDW Plt Count Lymph % (Auto) Luce % (Auto) Eos % (Auto) Seg Neutrophils % Seg Neuts % (Manual) Lymphocytes % (Manual) Seg Neutrophils # Seg Neutrophils # Man Lymphocytes # (Manual) APTT POC ABG pH ABG pH POC ABG pCO2 POC ABG pO2 ABG pO2 ABG HCO3 ABG Base Excess ABG Hemoglobin VBG pH Oxyhemoglobin Sodium Potassium Chloride Carbon Dioxide BUN Creatinine Glucose POC Glucose 155 H 203 H 132 H Lactic Acid Calcium AST Alkaline Phosphatase CK-MB (CK-2) CK-MB (CK-2) Rel Index Albumin TSH Urine WBC (Auto) Salicylates 01/18/17 01/19/17 01/19/17 23:43 04:28 12:11 WBC RBC Hgb Hct MCV MCH RDW Plt Count Lymph % (Auto) Luce % (Auto) Eos % (Auto) Seg Neutrophils % Seg Neuts % (Manual) Lymphocytes % (Manual) Seg Neutrophils # Seg Neutrophils # Man Lymphocytes # (Manual) APTT POC ABG pH ABG pH POC ABG pCO2 POC ABG pO2 ABG pO2 ABG HCO3 ABG Base Excess ABG Hemoglobin VBG pH Oxyhemoglobin Sodium Potassium Chloride Carbon Dioxide BUN Creatinine Glucose POC Glucose 125 H 182 H 153 H Lactic Acid Calcium AST Alkaline Phosphatase CK-MB (CK-2) CK-MB (CK-2) Rel Index Albumin TSH Urine WBC (Auto) Salicylates 01/19/17 01/20/17 01/20/17 17:23 00:12 05:44 WBC RBC Hgb Hct MCV MCH RDW Plt Count Lymph % (Auto) Luce % (Auto) Eos % (Auto) Seg Neutrophils % Seg Neuts % (Manual) Lymphocytes % (Manual) Seg Neutrophils # Seg Neutrophils # Man Lymphocytes # (Manual) APTT POC ABG pH ABG pH POC ABG pCO2 POC ABG pO2 ABG pO2 ABG HCO3 ABG Base Excess ABG Hemoglobin VBG pH Oxyhemoglobin Sodium Potassium Chloride Carbon Dioxide BUN Creatinine Glucose POC Glucose 66 L 139 H 176 H Lactic Acid Calcium AST Alkaline Phosphatase CK-MB (CK-2) CK-MB (CK-2) Rel Index Albumin TSH Urine WBC (Auto) Salicylates 01/20/17 01/20/17 01/20/17 11:48 17:42 23:43 WBC RBC Hgb Hct MCV MCH RDW Plt Count Lymph % (Auto) Luce % (Auto) Eos % (Auto) Seg Neutrophils % Seg Neuts % (Manual) Lymphocytes % (Manual) Seg Neutrophils # Seg Neutrophils # Man Lymphocytes # (Manual) APTT POC ABG pH ABG pH POC ABG pCO2 POC ABG pO2 ABG pO2 ABG HCO3 ABG Base Excess ABG Hemoglobin VBG pH Oxyhemoglobin Sodium Potassium Chloride Carbon Dioxide BUN Creatinine Glucose POC Glucose 218 H 132 H 178 H Lactic Acid Calcium AST Alkaline Phosphatase CK-MB (CK-2) CK-MB (CK-2) Rel Index Albumin TSH Urine WBC (Auto) Salicylates 01/21/17 01/21/17 01/21/17 05:34 11:17 23:37 WBC RBC Hgb Hct MCV MCH RDW Plt Count Lymph % (Auto) Luce % (Auto) Eos % (Auto) Seg Neutrophils % Seg Neuts % (Manual) Lymphocytes % (Manual) Seg Neutrophils # Seg Neutrophils # Man Lymphocytes # (Manual) APTT POC ABG pH ABG pH POC ABG pCO2 POC ABG pO2 ABG pO2 ABG HCO3 ABG Base Excess ABG Hemoglobin VBG pH Oxyhemoglobin Sodium Potassium Chloride Carbon Dioxide BUN Creatinine Glucose POC Glucose 106 H 213 H 140 H Lactic Acid Calcium AST Alkaline Phosphatase CK-MB (CK-2) CK-MB (CK-2) Rel Index Albumin TSH Urine WBC (Auto) Salicylates 01/22/17 01/22/17 01/22/17 04:00 04:00 04:58 WBC RBC 3.26 L Hgb 8.3 L Hct 25.5 L MCV 78 L MCH 25 L RDW 17.9 H Plt Count Lymph % (Auto) Luce % (Auto) 7.9 H Eos % (Auto) 6.2 H Seg Neutrophils % Seg Neuts % (Manual) Lymphocytes % (Manual) Seg Neutrophils # Seg Neutrophils # Man Lymphocytes # (Manual) APTT POC ABG pH ABG pH POC ABG pCO2 POC ABG pO2 ABG pO2 ABG HCO3 ABG Base Excess ABG Hemoglobin VBG pH Oxyhemoglobin Sodium Potassium Chloride 95.5 L Carbon Dioxide 31 H D BUN Creatinine Glucose 134 H POC Glucose 146 H Lactic Acid Calcium AST 44 H Alkaline Phosphatase 379 H CK-MB (CK-2) CK-MB (CK-2) Rel Index Albumin 2.7 L TSH Urine WBC (Auto) Salicylates 01/22/17 01/22/17 01/22/17 12:12 18:12 23:39 WBC RBC Hgb Hct MCV MCH RDW Plt Count Lymph % (Auto) Luce % (Auto) Eos % (Auto) Seg Neutrophils % Seg Neuts % (Manual) Lymphocytes % (Manual) Seg Neutrophils # Seg Neutrophils # Man Lymphocytes # (Manual) APTT POC ABG pH ABG pH POC ABG pCO2 POC ABG pO2 ABG pO2 ABG HCO3 ABG Base Excess ABG Hemoglobin VBG pH Oxyhemoglobin Sodium Potassium Chloride Carbon Dioxide BUN Creatinine Glucose POC Glucose 255 H 182 H 134 H Lactic Acid Calcium AST Alkaline Phosphatase CK-MB (CK-2) CK-MB (CK-2) Rel Index Albumin TSH Urine WBC (Auto) Salicylates 01/23/17 01/23/17 01/23/17 04:43 12:12 17:36 WBC RBC Hgb Hct MCV MCH RDW Plt Count Lymph % (Auto) Luce % (Auto) Eos % (Auto) Seg Neutrophils % Seg Neuts % (Manual) Lymphocytes % (Manual) Seg Neutrophils # Seg Neutrophils # Man Lymphocytes # (Manual) APTT POC ABG pH ABG pH POC ABG pCO2 POC ABG pO2 ABG pO2 ABG HCO3 ABG Base Excess ABG Hemoglobin VBG pH Oxyhemoglobin Sodium Potassium Chloride Carbon Dioxide BUN Creatinine Glucose POC Glucose 218 H 128 H 156 H Lactic Acid Calcium AST Alkaline Phosphatase CK-MB (CK-2) CK-MB (CK-2) Rel Index Albumin TSH Urine WBC (Auto) Salicylates 01/24/17 01/24/17 01/24/17 00:08 05:16 11:40 WBC RBC Hgb Hct MCV MCH RDW Plt Count Lymph % (Auto) Luce % (Auto) Eos % (Auto) Seg Neutrophils % Seg Neuts % (Manual) Lymphocytes % (Manual) Seg Neutrophils # Seg Neutrophils # Man Lymphocytes # (Manual) APTT POC ABG pH ABG pH POC ABG pCO2 POC ABG pO2 ABG pO2 ABG HCO3 ABG Base Excess ABG Hemoglobin VBG pH Oxyhemoglobin Sodium Potassium Chloride Carbon Dioxide BUN Creatinine Glucose POC Glucose 129 H 169 H 187 H Lactic Acid Calcium AST Alkaline Phosphatase CK-MB (CK-2) CK-MB (CK-2) Rel Index Albumin TSH Urine WBC (Auto) Salicylates 01/24/17 01/24/17 01/25/17 17:43 23:23 04:56 WBC RBC Hgb Hct MCV MCH RDW Plt Count Lymph % (Auto) Luce % (Auto) Eos % (Auto) Seg Neutrophils % Seg Neuts % (Manual) Lymphocytes % (Manual) Seg Neutrophils # Seg Neutrophils # Man Lymphocytes # (Manual) APTT POC ABG pH ABG pH POC ABG pCO2 POC ABG pO2 ABG pO2 ABG HCO3 ABG Base Excess ABG Hemoglobin VBG pH Oxyhemoglobin Sodium Potassium Chloride Carbon Dioxide BUN Creatinine Glucose POC Glucose 215 H 222 H 210 H Lactic Acid Calcium AST Alkaline Phosphatase CK-MB (CK-2) CK-MB (CK-2) Rel Index Albumin TSH Urine WBC (Auto) Salicylates 01/25/17 01/25/17 01/26/17 11:52 17:37 00:02 WBC RBC Hgb Hct MCV MCH RDW Plt Count Lymph % (Auto) Luce % (Auto) Eos % (Auto) Seg Neutrophils % Seg Neuts % (Manual) Lymphocytes % (Manual) Seg Neutrophils # Seg Neutrophils # Man Lymphocytes # (Manual) APTT POC ABG pH ABG pH POC ABG pCO2 POC ABG pO2 ABG pO2 ABG HCO3 ABG Base Excess ABG Hemoglobin VBG pH Oxyhemoglobin Sodium Potassium Chloride Carbon Dioxide BUN Creatinine Glucose POC Glucose 284 H 218 H 192 H Lactic Acid Calcium AST Alkaline Phosphatase CK-MB (CK-2) CK-MB (CK-2) Rel Index Albumin TSH Urine WBC (Auto) Salicylates 01/26/17 01/26/17 01/26/17 05:33 12:17 17:50 WBC RBC Hgb Hct MCV MCH RDW Plt Count Lymph % (Auto) Luce % (Auto) Eos % (Auto) Seg Neutrophils % Seg Neuts % (Manual) Lymphocytes % (Manual) Seg Neutrophils # Seg Neutrophils # Man Lymphocytes # (Manual) APTT POC ABG pH ABG pH POC ABG pCO2 POC ABG pO2 ABG pO2 ABG HCO3 ABG Base Excess ABG Hemoglobin VBG pH Oxyhemoglobin Sodium Potassium Chloride Carbon Dioxide BUN Creatinine Glucose POC Glucose 199 H 227 H 229 H Lactic Acid Calcium AST Alkaline Phosphatase CK-MB (CK-2) CK-MB (CK-2) Rel Index Albumin TSH Urine WBC (Auto) Salicylates 01/26/17 01/27/17 01/27/17 23:57 05:31 11:42 WBC RBC Hgb Hct MCV MCH RDW Plt Count Lymph % (Auto) Luce % (Auto) Eos % (Auto) Seg Neutrophils % Seg Neuts % (Manual) Lymphocytes % (Manual) Seg Neutrophils # Seg Neutrophils # Man Lymphocytes # (Manual) APTT POC ABG pH ABG pH POC ABG pCO2 POC ABG pO2 ABG pO2 ABG HCO3 ABG Base Excess ABG Hemoglobin VBG pH Oxyhemoglobin Sodium Potassium Chloride Carbon Dioxide BUN Creatinine Glucose POC Glucose 186 H 285 H 260 H Lactic Acid Calcium AST Alkaline Phosphatase CK-MB (CK-2) CK-MB (CK-2) Rel Index Albumin TSH Urine WBC (Auto) Salicylates 01/27/17 01/27/17 01/27/17 17:47 23:58 Unknown WBC 12.1 H RBC 3.28 L Hgb 8.5 L Hct 25.5 L MCV 78 L MCH 26 L RDW 16.8 H Plt Count 601 H Lymph % (Auto) Luce % (Auto) Eos % (Auto) Seg Neutrophils % Seg Neuts % (Manual) Lymphocytes % (Manual) Seg Neutrophils # Seg Neutrophils # Man Lymphocytes # (Manual) APTT POC ABG pH ABG pH POC ABG pCO2 POC ABG pO2 ABG pO2 ABG HCO3 ABG Base Excess ABG Hemoglobin VBG pH Oxyhemoglobin Sodium Potassium Chloride Carbon Dioxide BUN Creatinine Glucose POC Glucose 329 H 225 H Lactic Acid Calcium AST Alkaline Phosphatase CK-MB (CK-2) CK-MB (CK-2) Rel Index Albumin TSH Urine WBC (Auto) Salicylates 01/27/17 01/28/17 01/28/17 Unknown 03:44 03:44 WBC RBC 3.14 L Hgb 8.2 L Hct 24.1 L MCV 77 L MCH 26 L RDW 16.9 H Plt Count 567 H Lymph % (Auto) Luce % (Auto) Eos % (Auto) Seg Neutrophils % Seg Neuts % (Manual) Lymphocytes % (Manual) Seg Neutrophils # Seg Neutrophils # Man Lymphocytes # (Manual) APTT POC ABG pH ABG pH POC ABG pCO2 POC ABG pO2 ABG pO2 ABG HCO3 ABG Base Excess ABG Hemoglobin VBG pH Oxyhemoglobin Sodium 128 L Potassium 5.4 H Chloride 87.5 L Carbon Dioxide BUN 44 H 42 H Creatinine Glucose 250 H 128 H POC Glucose Lactic Acid Calcium AST Alkaline Phosphatase CK-MB (CK-2) CK-MB (CK-2) Rel Index Albumin TSH Urine WBC (Auto) Salicylates 01/28/17 01/28/17 01/28/17 11:43 16:47 17:52 WBC RBC Hgb Hct MCV MCH RDW Plt Count Lymph % (Auto) Luce % (Auto) Eos % (Auto) Seg Neutrophils % Seg Neuts % (Manual) Lymphocytes % (Manual) Seg Neutrophils # Seg Neutrophils # Man Lymphocytes # (Manual) APTT POC ABG pH ABG pH POC ABG pCO2 POC ABG pO2 ABG pO2 ABG HCO3 ABG Base Excess ABG Hemoglobin VBG pH Oxyhemoglobin Sodium Potassium Chloride Carbon Dioxide BUN Creatinine Glucose POC Glucose 351 H 249 H Lactic Acid Calcium AST Alkaline Phosphatase CK-MB (CK-2) CK-MB (CK-2) Rel Index Albumin TSH Urine WBC (Auto) > 182.0 H Salicylates 01/29/17 01/29/17 01/29/17 05:25 05:25 09:32 WBC 13.6 H RBC 3.25 L Hgb 8.3 L Hct 25.1 L MCV 77 L MCH 26 L RDW 16.8 H Plt Count 514 H Lymph % (Auto) Luce % (Auto) Eos % (Auto) Seg Neutrophils % Seg Neuts % (Manual) Lymphocytes % (Manual) Seg Neutrophils # Seg Neutrophils # Man Lymphocytes # (Manual) APTT POC ABG pH ABG pH POC ABG pCO2 POC ABG pO2 ABG pO2 ABG HCO3 ABG Base Excess ABG Hemoglobin VBG pH Oxyhemoglobin Sodium Potassium Chloride 97.8 L Carbon Dioxide BUN 34 H Creatinine Glucose 222 H POC Glucose Lactic Acid 2.50 H* Calcium AST Alkaline Phosphatase CK-MB (CK-2) CK-MB (CK-2) Rel Index Albumin TSH Urine WBC (Auto) Salicylates 01/29/17 01/29/17 01/29/17 11:56 18:11 23:55 WBC RBC Hgb Hct MCV MCH RDW Plt Count Lymph % (Auto) Luce % (Auto) Eos % (Auto) Seg Neutrophils % Seg Neuts % (Manual) Lymphocytes % (Manual) Seg Neutrophils # Seg Neutrophils # Man Lymphocytes # (Manual) APTT POC ABG pH ABG pH POC ABG pCO2 POC ABG pO2 ABG pO2 ABG HCO3 ABG Base Excess ABG Hemoglobin VBG pH Oxyhemoglobin Sodium Potassium Chloride Carbon Dioxide BUN Creatinine Glucose POC Glucose 261 H 215 H 176 H Lactic Acid Calcium AST Alkaline Phosphatase CK-MB (CK-2) CK-MB (CK-2) Rel Index Albumin TSH Urine WBC (Auto) Salicylates 01/30/17 01/30/17 01/30/17 05:31 05:31 05:34 WBC 15.2 H RBC 3.09 L Hgb 7.9 L Hct 23.9 L MCV 77 L MCH 26 L RDW 16.9 H Plt Count 569 H Lymph % (Auto) Luce % (Auto) Eos % (Auto) Seg Neutrophils % Seg Neuts % (Manual) Lymphocytes % (Manual) Seg Neutrophils # Seg Neutrophils # Man Lymphocytes # (Manual) APTT POC ABG pH ABG pH POC ABG pCO2 POC ABG pO2 ABG pO2 ABG HCO3 ABG Base Excess ABG Hemoglobin VBG pH Oxyhemoglobin Sodium Potassium Chloride Carbon Dioxide BUN 24 H Creatinine Glucose 235 H POC Glucose 243 H Lactic Acid Calcium AST Alkaline Phosphatase CK-MB (CK-2) CK-MB (CK-2) Rel Index Albumin TSH Urine WBC (Auto) Salicylates 01/30/17 01/30/17 01/30/17 11:38 17:58 23:29 WBC RBC Hgb Hct MCV MCH RDW Plt Count Lymph % (Auto) Luce % (Auto) Eos % (Auto) Seg Neutrophils % Seg Neuts % (Manual) Lymphocytes % (Manual) Seg Neutrophils # Seg Neutrophils # Man Lymphocytes # (Manual) APTT POC ABG pH ABG pH POC ABG pCO2 POC ABG pO2 ABG pO2 ABG HCO3 ABG Base Excess ABG Hemoglobin VBG pH Oxyhemoglobin Sodium Potassium Chloride Carbon Dioxide BUN Creatinine Glucose POC Glucose 298 H 208 H 245 H Lactic Acid Calcium AST Alkaline Phosphatase CK-MB (CK-2) CK-MB (CK-2) Rel Index Albumin TSH Urine WBC (Auto) Salicylates 01/31/17 01/31/17 01/31/17 04:39 04:39 05:57 WBC 11.4 H RBC 3.22 L Hgb 8.2 L Hct 24.9 L MCV 78 L MCH 25 L RDW 17.2 H Plt Count 576 H Lymph % (Auto) Luce % (Auto) Eos % (Auto) Seg Neutrophils % Seg Neuts % (Manual) Lymphocytes % (Manual) Seg Neutrophils # Seg Neutrophils # Man Lymphocytes # (Manual) APTT POC ABG pH ABG pH POC ABG pCO2 POC ABG pO2 ABG pO2 ABG HCO3 ABG Base Excess ABG Hemoglobin VBG pH Oxyhemoglobin Sodium Potassium Chloride Carbon Dioxide BUN Creatinine 0.7 L Glucose 223 H POC Glucose 264 H Lactic Acid Calcium AST Alkaline Phosphatase CK-MB (CK-2) CK-MB (CK-2) Rel Index Albumin TSH Urine WBC (Auto) Salicylates 01/31/17 01/31/17 01/31/17 12:23 17:41 18:55 WBC RBC Hgb Hct MCV MCH RDW Plt Count Lymph % (Auto) Luce % (Auto) Eos % (Auto) Seg Neutrophils % Seg Neuts % (Manual) Lymphocytes % (Manual) Seg Neutrophils # Seg Neutrophils # Man Lymphocytes # (Manual) APTT POC ABG pH ABG pH POC ABG pCO2 32.8 L POC ABG pO2 ABG pO2 ABG HCO3 ABG Base Excess ABG Hemoglobin VBG pH Oxyhemoglobin Sodium Potassium Chloride Carbon Dioxide BUN Creatinine Glucose POC Glucose 252 H 208 H Lactic Acid Calcium AST Alkaline Phosphatase CK-MB (CK-2) CK-MB (CK-2) Rel Index Albumin TSH Urine WBC (Auto) Salicylates 01/31/17 02/01/17 02/01/17 22:59 03:38 03:38 WBC RBC 2.81 L Hgb 7.4 L Hct 22.1 L MCV 79 L MCH 27 L RDW 17.0 H Plt Count 540 H Lymph % (Auto) Luce % (Auto) Eos % (Auto) Seg Neutrophils % Seg Neuts % (Manual) Lymphocytes % (Manual) Seg Neutrophils # Seg Neutrophils # Man Lymphocytes # (Manual) APTT POC ABG pH ABG pH POC ABG pCO2 POC ABG pO2 ABG pO2 ABG HCO3 ABG Base Excess ABG Hemoglobin VBG pH Oxyhemoglobin Sodium Potassium Chloride Carbon Dioxide 21 L BUN Creatinine 0.7 L Glucose POC Glucose 40 L Lactic Acid Calcium AST Alkaline Phosphatase CK-MB (CK-2) CK-MB (CK-2) Rel Index Albumin TSH Urine WBC (Auto) Salicylates 02/01/17 02/01/17 02/01/17 05:17 12:19 16:44 WBC RBC Hgb Hct MCV MCH RDW Plt Count Lymph % (Auto) Luce % (Auto) Eos % (Auto) Seg Neutrophils % Seg Neuts % (Manual) Lymphocytes % (Manual) Seg Neutrophils # Seg Neutrophils # Man Lymphocytes # (Manual) APTT POC ABG pH ABG pH POC ABG pCO2 POC ABG pO2 ABG pO2 ABG HCO3 ABG Base Excess ABG Hemoglobin VBG pH Oxyhemoglobin Sodium Potassium Chloride Carbon Dioxide BUN Creatinine Glucose POC Glucose 140 H 213 H 172 H Lactic Acid Calcium AST Alkaline Phosphatase CK-MB (CK-2) CK-MB (CK-2) Rel Index Albumin TSH Urine WBC (Auto) Salicylates 02/01/17 02/02/17 02/02/17 23:59 05:14 11:24 WBC RBC Hgb Hct MCV MCH RDW Plt Count Lymph % (Auto) Luce % (Auto) Eos % (Auto) Seg Neutrophils % Seg Neuts % (Manual) Lymphocytes % (Manual) Seg Neutrophils # Seg Neutrophils # Man Lymphocytes # (Manual) APTT POC ABG pH ABG pH POC ABG pCO2 POC ABG pO2 ABG pO2 ABG HCO3 ABG Base Excess ABG Hemoglobin VBG pH Oxyhemoglobin Sodium Potassium Chloride Carbon Dioxide BUN Creatinine Glucose POC Glucose 181 H 194 H 209 H Lactic Acid Calcium AST Alkaline Phosphatase CK-MB (CK-2) CK-MB (CK-2) Rel Index Albumin TSH Urine WBC (Auto) Salicylates 02/02/17 02/02/17 02/02/17 11:46 11:46 17:47 WBC RBC 2.94 L Hgb 7.5 L Hct 23.0 L MCV 78 L MCH 25 L RDW 16.9 H Plt Count 520 H Lymph % (Auto) Luce % (Auto) Eos % (Auto) Seg Neutrophils % Seg Neuts % (Manual) Lymphocytes % (Manual) Seg Neutrophils # Seg Neutrophils # Man Lymphocytes # (Manual) APTT POC ABG pH ABG pH POC ABG pCO2 POC ABG pO2 ABG pO2 ABG HCO3 ABG Base Excess ABG Hemoglobin VBG pH Oxyhemoglobin Sodium Potassium Chloride Carbon Dioxide BUN Creatinine 0.6 L Glucose 189 H POC Glucose 147 H Lactic Acid Calcium 8.1 L AST Alkaline Phosphatase CK-MB (CK-2) CK-MB (CK-2) Rel Index Albumin TSH Urine WBC (Auto) Salicylates 02/02/17 02/03/17 02/03/17 23:32 05:53 11:19 WBC RBC Hgb Hct MCV MCH RDW Plt Count Lymph % (Auto) Luce % (Auto) Eos % (Auto) Seg Neutrophils % Seg Neuts % (Manual) Lymphocytes % (Manual) Seg Neutrophils # Seg Neutrophils # Man Lymphocytes # (Manual) APTT POC ABG pH ABG pH POC ABG pCO2 POC ABG pO2 ABG pO2 ABG HCO3 ABG Base Excess ABG Hemoglobin VBG pH Oxyhemoglobin Sodium Potassium Chloride Carbon Dioxide BUN Creatinine Glucose POC Glucose 176 H 224 H 228 H Lactic Acid Calcium AST Alkaline Phosphatase CK-MB (CK-2) CK-MB (CK-2) Rel Index Albumin TSH Urine WBC (Auto) Salicylates 02/03/17 02/03/17 02/04/17 16:59 23:38 05:45 WBC RBC Hgb Hct MCV MCH RDW Plt Count Lymph % (Auto) Luce % (Auto) Eos % (Auto) Seg Neutrophils % Seg Neuts % (Manual) Lymphocytes % (Manual) Seg Neutrophils # Seg Neutrophils # Man Lymphocytes # (Manual) APTT POC ABG pH ABG pH POC ABG pCO2 POC ABG pO2 ABG pO2 ABG HCO3 ABG Base Excess ABG Hemoglobin VBG pH Oxyhemoglobin Sodium Potassium Chloride Carbon Dioxide BUN Creatinine Glucose POC Glucose 189 H 191 H 251 H Lactic Acid Calcium AST Alkaline Phosphatase CK-MB (CK-2) CK-MB (CK-2) Rel Index Albumin TSH Urine WBC (Auto) Salicylates 02/04/17 02/04/17 02/05/17 11:20 17:20 00:17 WBC RBC Hgb Hct MCV MCH RDW Plt Count Lymph % (Auto) Luce % (Auto) Eos % (Auto) Seg Neutrophils % Seg Neuts % (Manual) Lymphocytes % (Manual) Seg Neutrophils # Seg Neutrophils # Man Lymphocytes # (Manual) APTT POC ABG pH ABG pH POC ABG pCO2 POC ABG pO2 ABG pO2 ABG HCO3 ABG Base Excess ABG Hemoglobin VBG pH Oxyhemoglobin Sodium Potassium Chloride Carbon Dioxide BUN Creatinine Glucose POC Glucose 243 H 163 H 200 H Lactic Acid Calcium AST Alkaline Phosphatase CK-MB (CK-2) CK-MB (CK-2) Rel Index Albumin TSH Urine WBC (Auto) Salicylates 02/05/17 02/05/17 02/05/17 05:38 12:38 16:29 WBC RBC Hgb Hct MCV MCH RDW Plt Count Lymph % (Auto) Luce % (Auto) Eos % (Auto) Seg Neutrophils % Seg Neuts % (Manual) Lymphocytes % (Manual) Seg Neutrophils # Seg Neutrophils # Man Lymphocytes # (Manual) APTT POC ABG pH ABG pH POC ABG pCO2 POC ABG pO2 ABG pO2 ABG HCO3 ABG Base Excess ABG Hemoglobin VBG pH Oxyhemoglobin Sodium Potassium Chloride Carbon Dioxide BUN Creatinine Glucose POC Glucose 248 H 241 H 257 H Lactic Acid Calcium AST Alkaline Phosphatase CK-MB (CK-2) CK-MB (CK-2) Rel Index Albumin TSH Urine WBC (Auto) Salicylates 02/05/17 02/06/17 02/06/17 23:56 05:30 11:50 WBC RBC Hgb Hct MCV MCH RDW Plt Count Lymph % (Auto) Luce % (Auto) Eos % (Auto) Seg Neutrophils % Seg Neuts % (Manual) Lymphocytes % (Manual) Seg Neutrophils # Seg Neutrophils # Man Lymphocytes # (Manual) APTT POC ABG pH ABG pH POC ABG pCO2 POC ABG pO2 ABG pO2 ABG HCO3 ABG Base Excess ABG Hemoglobin VBG pH Oxyhemoglobin Sodium Potassium Chloride Carbon Dioxide BUN Creatinine Glucose POC Glucose 258 H 120 H 254 H Lactic Acid Calcium AST Alkaline Phosphatase CK-MB (CK-2) CK-MB (CK-2) Rel Index Albumin TSH Urine WBC (Auto) Salicylates 02/06/17 02/06/17 02/07/17 17:11 23:50 05:22 WBC RBC Hgb Hct MCV MCH RDW Plt Count Lymph % (Auto) Luce % (Auto) Eos % (Auto) Seg Neutrophils % Seg Neuts % (Manual) Lymphocytes % (Manual) Seg Neutrophils # Seg Neutrophils # Man Lymphocytes # (Manual) APTT POC ABG pH ABG pH POC ABG pCO2 POC ABG pO2 ABG pO2 ABG HCO3 ABG Base Excess ABG Hemoglobin VBG pH Oxyhemoglobin Sodium Potassium Chloride Carbon Dioxide BUN Creatinine Glucose POC Glucose 149 H 240 H 258 H Lactic Acid Calcium AST Alkaline Phosphatase CK-MB (CK-2) CK-MB (CK-2) Rel Index Albumin TSH Urine WBC (Auto) Salicylates 02/07/17 02/07/17 02/07/17 11:15 18:33 23:59 WBC RBC Hgb Hct MCV MCH RDW Plt Count Lymph % (Auto) Luce % (Auto) Eos % (Auto) Seg Neutrophils % Seg Neuts % (Manual) Lymphocytes % (Manual) Seg Neutrophils # Seg Neutrophils # Man Lymphocytes # (Manual) APTT POC ABG pH ABG pH POC ABG pCO2 POC ABG pO2 ABG pO2 ABG HCO3 ABG Base Excess ABG Hemoglobin VBG pH Oxyhemoglobin Sodium Potassium Chloride Carbon Dioxide BUN Creatinine Glucose POC Glucose 239 H 176 H 186 H Lactic Acid Calcium AST Alkaline Phosphatase CK-MB (CK-2) CK-MB (CK-2) Rel Index Albumin TSH Urine WBC (Auto) Salicylates 02/08/17 02/08/17 02/08/17 06:15 11:55 16:55 WBC RBC Hgb Hct MCV MCH RDW Plt Count Lymph % (Auto) Luce % (Auto) Eos % (Auto) Seg Neutrophils % Seg Neuts % (Manual) Lymphocytes % (Manual) Seg Neutrophils # Seg Neutrophils # Man Lymphocytes # (Manual) APTT POC ABG pH ABG pH POC ABG pCO2 POC ABG pO2 ABG pO2 ABG HCO3 ABG Base Excess ABG Hemoglobin VBG pH Oxyhemoglobin Sodium Potassium Chloride Carbon Dioxide BUN Creatinine Glucose POC Glucose 195 H 129 H 246 H Lactic Acid Calcium AST Alkaline Phosphatase CK-MB (CK-2) CK-MB (CK-2) Rel Index Albumin TSH Urine WBC (Auto) Salicylates 02/08/17 02/09/17 02/09/17 23:51 05:51 07:24 WBC 14.7 H RBC 3.39 L Hgb 8.9 L Hct 26.4 L MCV 78 L MCH 26 L RDW 18.4 H Plt Count 670 H Lymph % (Auto) 11.8 L Luce % (Auto) Eos % (Auto) Seg Neutrophils % 81.2 H Seg Neuts % (Manual) Lymphocytes % (Manual) Seg Neutrophils # 11.9 H Seg Neutrophils # Man Lymphocytes # (Manual) APTT POC ABG pH ABG pH POC ABG pCO2 POC ABG pO2 ABG pO2 ABG HCO3 ABG Base Excess ABG Hemoglobin VBG pH Oxyhemoglobin Sodium Potassium Chloride Carbon Dioxide BUN Creatinine Glucose POC Glucose 262 H 295 H Lactic Acid Calcium AST Alkaline Phosphatase CK-MB (CK-2) CK-MB (CK-2) Rel Index Albumin TSH Urine WBC (Auto) Salicylates 02/09/17 02/09/17 02/09/17 07:24 12:08 18:39 WBC RBC Hgb Hct MCV MCH RDW Plt Count Lymph % (Auto) Luce % (Auto) Eos % (Auto) Seg Neutrophils % Seg Neuts % (Manual) Lymphocytes % (Manual) Seg Neutrophils # Seg Neutrophils # Man Lymphocytes # (Manual) APTT POC ABG pH ABG pH POC ABG pCO2 POC ABG pO2 ABG pO2 ABG HCO3 ABG Base Excess ABG Hemoglobin VBG pH Oxyhemoglobin Sodium Potassium Chloride 95.5 L Carbon Dioxide BUN 52 H Creatinine Glucose 277 H POC Glucose 236 H 151 H Lactic Acid Calcium AST Alkaline Phosphatase CK-MB (CK-2) CK-MB (CK-2) Rel Index Albumin TSH Urine WBC (Auto) Salicylates 02/10/17 02/10/17 02/10/17 00:01 05:44 11:21 WBC RBC Hgb Hct MCV MCH RDW Plt Count Lymph % (Auto) Luce % (Auto) Eos % (Auto) Seg Neutrophils % Seg Neuts % (Manual) Lymphocytes % (Manual) Seg Neutrophils # Seg Neutrophils # Man Lymphocytes # (Manual) APTT POC ABG pH ABG pH POC ABG pCO2 POC ABG pO2 ABG pO2 ABG HCO3 ABG Base Excess ABG Hemoglobin VBG pH Oxyhemoglobin Sodium Potassium Chloride Carbon Dioxide BUN Creatinine Glucose POC Glucose 210 H 201 H 233 H Lactic Acid Calcium AST Alkaline Phosphatase CK-MB (CK-2) CK-MB (CK-2) Rel Index Albumin TSH Urine WBC (Auto) Salicylates 02/10/17 02/10/17 02/11/17 17:29 23:56 05:24 WBC RBC Hgb Hct MCV MCH RDW Plt Count Lymph % (Auto) Luce % (Auto) Eos % (Auto) Seg Neutrophils % Seg Neuts % (Manual) Lymphocytes % (Manual) Seg Neutrophils # Seg Neutrophils # Man Lymphocytes # (Manual) APTT POC ABG pH ABG pH POC ABG pCO2 POC ABG pO2 ABG pO2 ABG HCO3 ABG Base Excess ABG Hemoglobin VBG pH Oxyhemoglobin Sodium Potassium Chloride Carbon Dioxide BUN Creatinine Glucose POC Glucose 167 H 191 H 135 H Lactic Acid Calcium AST Alkaline Phosphatase CK-MB (CK-2) CK-MB (CK-2) Rel Index Albumin TSH Urine WBC (Auto) Salicylates 02/11/17 02/11/17 02/11/17 12:25 17:03 23:59 WBC RBC Hgb Hct MCV MCH RDW Plt Count Lymph % (Auto) Luce % (Auto) Eos % (Auto) Seg Neutrophils % Seg Neuts % (Manual) Lymphocytes % (Manual) Seg Neutrophils # Seg Neutrophils # Man Lymphocytes # (Manual) APTT POC ABG pH ABG pH POC ABG pCO2 POC ABG pO2 ABG pO2 ABG HCO3 ABG Base Excess ABG Hemoglobin VBG pH Oxyhemoglobin Sodium Potassium Chloride Carbon Dioxide BUN Creatinine Glucose POC Glucose 275 H 172 H 215 H Lactic Acid Calcium AST Alkaline Phosphatase CK-MB (CK-2) CK-MB (CK-2) Rel Index Albumin TSH Urine WBC (Auto) Salicylates 02/12/17 02/12/17 02/12/17 05:39 11:33 17:55 WBC RBC Hgb Hct MCV MCH RDW Plt Count Lymph % (Auto) Luce % (Auto) Eos % (Auto) Seg Neutrophils % Seg Neuts % (Manual) Lymphocytes % (Manual) Seg Neutrophils # Seg Neutrophils # Man Lymphocytes # (Manual) APTT POC ABG pH ABG pH POC ABG pCO2 POC ABG pO2 ABG pO2 ABG HCO3 ABG Base Excess ABG Hemoglobin VBG pH Oxyhemoglobin Sodium Potassium Chloride Carbon Dioxide BUN Creatinine Glucose POC Glucose 261 H 217 H 172 H Lactic Acid Calcium AST Alkaline Phosphatase CK-MB (CK-2) CK-MB (CK-2) Rel Index Albumin TSH Urine WBC (Auto) Salicylates 02/13/17 02/13/17 02/13/17 00:25 06:46 11:26 WBC RBC Hgb Hct MCV MCH RDW Plt Count Lymph % (Auto) Luce % (Auto) Eos % (Auto) Seg Neutrophils % Seg Neuts % (Manual) Lymphocytes % (Manual) Seg Neutrophils # Seg Neutrophils # Man Lymphocytes # (Manual) APTT POC ABG pH ABG pH POC ABG pCO2 POC ABG pO2 ABG pO2 ABG HCO3 ABG Base Excess ABG Hemoglobin VBG pH Oxyhemoglobin Sodium Potassium Chloride Carbon Dioxide BUN Creatinine Glucose POC Glucose 207 H 219 H 231 H Lactic Acid Calcium AST Alkaline Phosphatase CK-MB (CK-2) CK-MB (CK-2) Rel Index Albumin TSH Urine WBC (Auto) Salicylates 02/13/17 02/13/17 02/14/17 17:12 23:44 05:44 WBC RBC Hgb Hct MCV MCH RDW Plt Count Lymph % (Auto) Luce % (Auto) Eos % (Auto) Seg Neutrophils % Seg Neuts % (Manual) Lymphocytes % (Manual) Seg Neutrophils # Seg Neutrophils # Man Lymphocytes # (Manual) APTT POC ABG pH ABG pH POC ABG pCO2 POC ABG pO2 ABG pO2 ABG HCO3 ABG Base Excess ABG Hemoglobin VBG pH Oxyhemoglobin Sodium Potassium Chloride Carbon Dioxide BUN Creatinine Glucose POC Glucose 190 H 256 H 184 H Lactic Acid Calcium AST Alkaline Phosphatase CK-MB (CK-2) CK-MB (CK-2) Rel Index Albumin TSH Urine WBC (Auto) Salicylates 02/14/17 02/14/17 02/14/17 12:21 17:57 23:18 WBC RBC Hgb Hct MCV MCH RDW Plt Count Lymph % (Auto) Luce % (Auto) Eos % (Auto) Seg Neutrophils % Seg Neuts % (Manual) Lymphocytes % (Manual) Seg Neutrophils # Seg Neutrophils # Man Lymphocytes # (Manual) APTT POC ABG pH ABG pH POC ABG pCO2 POC ABG pO2 ABG pO2 ABG HCO3 ABG Base Excess ABG Hemoglobin VBG pH Oxyhemoglobin Sodium Potassium Chloride Carbon Dioxide BUN Creatinine Glucose POC Glucose 233 H 155 H 165 H Lactic Acid Calcium AST Alkaline Phosphatase CK-MB (CK-2) CK-MB (CK-2) Rel Index Albumin TSH Urine WBC (Auto) Salicylates 02/15/17 02/15/17 02/15/17 05:33 11:45 17:20 WBC RBC Hgb Hct MCV MCH RDW Plt Count Lymph % (Auto) Luce % (Auto) Eos % (Auto) Seg Neutrophils % Seg Neuts % (Manual) Lymphocytes % (Manual) Seg Neutrophils # Seg Neutrophils # Man Lymphocytes # (Manual) APTT POC ABG pH ABG pH POC ABG pCO2 POC ABG pO2 ABG pO2 ABG HCO3 ABG Base Excess ABG Hemoglobin VBG pH Oxyhemoglobin Sodium Potassium Chloride Carbon Dioxide BUN Creatinine Glucose POC Glucose 239 H 130 H 189 H Lactic Acid Calcium AST Alkaline Phosphatase CK-MB (CK-2) CK-MB (CK-2) Rel Index Albumin TSH Urine WBC (Auto) Salicylates 02/16/17 02/16/17 02/16/17 00:14 05:09 12:31 WBC RBC Hgb Hct MCV MCH RDW Plt Count Lymph % (Auto) Luce % (Auto) Eos % (Auto) Seg Neutrophils % Seg Neuts % (Manual) Lymphocytes % (Manual) Seg Neutrophils # Seg Neutrophils # Man Lymphocytes # (Manual) APTT POC ABG pH ABG pH POC ABG pCO2 POC ABG pO2 ABG pO2 ABG HCO3 ABG Base Excess ABG Hemoglobin VBG pH Oxyhemoglobin Sodium Potassium Chloride Carbon Dioxide BUN Creatinine Glucose POC Glucose 197 H 226 H 178 H Lactic Acid Calcium AST Alkaline Phosphatase CK-MB (CK-2) CK-MB (CK-2) Rel Index Albumin TSH Urine WBC (Auto) Salicylates 02/16/17 02/16/17 02/17/17 16:35 23:49 05:37 WBC RBC Hgb Hct MCV MCH RDW Plt Count Lymph % (Auto) Luce % (Auto) Eos % (Auto) Seg Neutrophils % Seg Neuts % (Manual) Lymphocytes % (Manual) Seg Neutrophils # Seg Neutrophils # Man Lymphocytes # (Manual) APTT POC ABG pH ABG pH POC ABG pCO2 POC ABG pO2 ABG pO2 ABG HCO3 ABG Base Excess ABG Hemoglobin VBG pH Oxyhemoglobin Sodium Potassium Chloride Carbon Dioxide BUN Creatinine Glucose POC Glucose 174 H 62 L 153 H Lactic Acid Calcium AST Alkaline Phosphatase CK-MB (CK-2) CK-MB (CK-2) Rel Index Albumin TSH Urine WBC (Auto) Salicylates 02/17/17 02/17/17 02/17/17 11:39 17:02 22:24 WBC RBC Hgb Hct MCV MCH RDW Plt Count Lymph % (Auto) Luce % (Auto) Eos % (Auto) Seg Neutrophils % Seg Neuts % (Manual) Lymphocytes % (Manual) Seg Neutrophils # Seg Neutrophils # Man Lymphocytes # (Manual) APTT POC ABG pH ABG pH POC ABG pCO2 POC ABG pO2 ABG pO2 ABG HCO3 ABG Base Excess ABG Hemoglobin VBG pH Oxyhemoglobin Sodium Potassium Chloride Carbon Dioxide BUN Creatinine Glucose POC Glucose 231 H 112 H 116 H Lactic Acid Calcium AST Alkaline Phosphatase CK-MB (CK-2) CK-MB (CK-2) Rel Index Albumin TSH Urine WBC (Auto) Salicylates 02/18/17 02/19/17 02/19/17 15:34 05:09 07:57 WBC RBC Hgb Hct MCV MCH RDW Plt Count Lymph % (Auto) Luce % (Auto) Eos % (Auto) Seg Neutrophils % Seg Neuts % (Manual) Lymphocytes % (Manual) Seg Neutrophils # Seg Neutrophils # Man Lymphocytes # (Manual) APTT POC ABG pH ABG pH POC ABG pCO2 POC ABG pO2 ABG pO2 ABG HCO3 ABG Base Excess ABG Hemoglobin VBG pH Oxyhemoglobin Sodium Potassium Chloride Carbon Dioxide BUN Creatinine Glucose POC Glucose 215 H 218 H 283 H Lactic Acid Calcium AST Alkaline Phosphatase CK-MB (CK-2) CK-MB (CK-2) Rel Index Albumin TSH Urine WBC (Auto) Salicylates 02/19/17 02/19/17 02/20/17 14:49 22:10 05:10 WBC RBC Hgb Hct MCV MCH RDW Plt Count Lymph % (Auto) Luce % (Auto) Eos % (Auto) Seg Neutrophils % Seg Neuts % (Manual) Lymphocytes % (Manual) Seg Neutrophils # Seg Neutrophils # Man Lymphocytes # (Manual) APTT POC ABG pH ABG pH POC ABG pCO2 POC ABG pO2 ABG pO2 ABG HCO3 ABG Base Excess ABG Hemoglobin VBG pH Oxyhemoglobin Sodium Potassium Chloride Carbon Dioxide BUN Creatinine Glucose POC Glucose 290 H 169 H 209 H Lactic Acid Calcium AST Alkaline Phosphatase CK-MB (CK-2) CK-MB (CK-2) Rel Index Albumin TSH Urine WBC (Auto) Salicylates 02/20/17 02/20/17 02/21/17 15:05 21:52 02:00 WBC RBC Hgb Hct MCV MCH RDW Plt Count Lymph % (Auto) Luce % (Auto) Eos % (Auto) Seg Neutrophils % Seg Neuts % (Manual) Lymphocytes % (Manual) Seg Neutrophils # Seg Neutrophils # Man Lymphocytes # (Manual) APTT POC ABG pH ABG pH POC ABG pCO2 POC ABG pO2 ABG pO2 ABG HCO3 ABG Base Excess ABG Hemoglobin VBG pH Oxyhemoglobin Sodium Potassium Chloride Carbon Dioxide BUN Creatinine Glucose POC Glucose 172 H 209 H 216 H Lactic Acid Calcium AST Alkaline Phosphatase CK-MB (CK-2) CK-MB (CK-2) Rel Index Albumin TSH Urine WBC (Auto) Salicylates 02/21/17 02/21/17 02/21/17 04:54 14:43 17:47 WBC RBC Hgb Hct MCV MCH RDW Plt Count Lymph % (Auto) Luce % (Auto) Eos % (Auto) Seg Neutrophils % Seg Neuts % (Manual) Lymphocytes % (Manual) Seg Neutrophils # Seg Neutrophils # Man Lymphocytes # (Manual) APTT POC ABG pH ABG pH POC ABG pCO2 POC ABG pO2 ABG pO2 ABG HCO3 ABG Base Excess ABG Hemoglobin VBG pH Oxyhemoglobin Sodium Potassium Chloride Carbon Dioxide BUN Creatinine Glucose POC Glucose 227 H 290 H 220 H Lactic Acid Calcium AST Alkaline Phosphatase CK-MB (CK-2) CK-MB (CK-2) Rel Index Albumin TSH Urine WBC (Auto) Salicylates 02/21/17 02/22/17 02/22/17 22:02 04:52 15:25 WBC RBC Hgb Hct MCV MCH RDW Plt Count Lymph % (Auto) Luce % (Auto) Eos % (Auto) Seg Neutrophils % Seg Neuts % (Manual) Lymphocytes % (Manual) Seg Neutrophils # Seg Neutrophils # Man Lymphocytes # (Manual) APTT POC ABG pH ABG pH POC ABG pCO2 POC ABG pO2 ABG pO2 ABG HCO3 ABG Base Excess ABG Hemoglobin VBG pH Oxyhemoglobin Sodium Potassium Chloride Carbon Dioxide BUN Creatinine Glucose POC Glucose 246 H 212 H 236 H Lactic Acid Calcium AST Alkaline Phosphatase CK-MB (CK-2) CK-MB (CK-2) Rel Index Albumin TSH Urine WBC (Auto) Salicylates 02/22/17 02/23/17 02/23/17 21:33 06:04 10:00 WBC RBC Hgb Hct MCV MCH RDW Plt Count Lymph % (Auto) Luce % (Auto) Eos % (Auto) Seg Neutrophils % Seg Neuts % (Manual) Lymphocytes % (Manual) Seg Neutrophils # Seg Neutrophils # Man Lymphocytes # (Manual) APTT POC ABG pH ABG pH POC ABG pCO2 POC ABG pO2 ABG pO2 ABG HCO3 ABG Base Excess ABG Hemoglobin VBG pH Oxyhemoglobin Sodium Potassium Chloride Carbon Dioxide BUN Creatinine Glucose POC Glucose 255 H 208 H 174 H Lactic Acid Calcium AST Alkaline Phosphatase CK-MB (CK-2) CK-MB (CK-2) Rel Index Albumin TSH Urine WBC (Auto) Salicylates 02/23/17 02/23/17 02/23/17 12:52 17:15 21:51 WBC RBC Hgb Hct MCV MCH RDW Plt Count Lymph % (Auto) Luce % (Auto) Eos % (Auto) Seg Neutrophils % Seg Neuts % (Manual) Lymphocytes % (Manual) Seg Neutrophils # Seg Neutrophils # Man Lymphocytes # (Manual) APTT POC ABG pH ABG pH POC ABG pCO2 POC ABG pO2 ABG pO2 ABG HCO3 ABG Base Excess ABG Hemoglobin VBG pH Oxyhemoglobin Sodium Potassium Chloride Carbon Dioxide BUN Creatinine Glucose POC Glucose 203 H 269 H 205 H Lactic Acid Calcium AST Alkaline Phosphatase CK-MB (CK-2) CK-MB (CK-2) Rel Index Albumin TSH Urine WBC (Auto) Salicylates 1102/24/17 02/24/17 10:23 17:45 21:24 WBC RBC Hgb Hct MCV MCH RDW Plt Count Lymph % (Auto) Luce % (Auto) Eos % (Auto) Seg Neutrophils % Seg Neuts % (Manual) Lymphocytes % (Manual) Seg Neutrophils # Seg Neutrophils # Man Lymphocytes # (Manual) APTT POC ABG pH ABG pH POC ABG pCO2 POC ABG pO2 ABG pO2 ABG HCO3 ABG Base Excess ABG Hemoglobin VBG pH Oxyhemoglobin Sodium Potassium Chloride Carbon Dioxide BUN Creatinine Glucose POC Glucose 280 H 239 H 254 H Lactic Acid Calcium AST Alkaline Phosphatase CK-MB (CK-2) CK-MB (CK-2) Rel Index Albumin TSH Urine WBC (Auto) Salicylates 02/25/17 02/25/17 02/25/17 02:12 05:17 14:32 WBC RBC Hgb Hct MCV MCH RDW Plt Count Lymph % (Auto) Luce % (Auto) Eos % (Auto) Seg Neutrophils % Seg Neuts % (Manual) Lymphocytes % (Manual) Seg Neutrophils # Seg Neutrophils # Man Lymphocytes # (Manual) APTT POC ABG pH ABG pH POC ABG pCO2 POC ABG pO2 ABG pO2 ABG HCO3 ABG Base Excess ABG Hemoglobin VBG pH Oxyhemoglobin Sodium Potassium Chloride Carbon Dioxide BUN Creatinine Glucose POC Glucose 296 H 332 H 353 H Lactic Acid Calcium AST Alkaline Phosphatase CK-MB (CK-2) CK-MB (CK-2) Rel Index Albumin TSH Urine WBC (Auto) Salicylates 02/25/17 02/26/17 02/26/17 22:14 00:37 05:52 WBC RBC Hgb Hct MCV MCH RDW Plt Count Lymph % (Auto) Luce % (Auto) Eos % (Auto) Seg Neutrophils % Seg Neuts % (Manual) Lymphocytes % (Manual) Seg Neutrophils # Seg Neutrophils # Man Lymphocytes # (Manual) APTT POC ABG pH ABG pH POC ABG pCO2 POC ABG pO2 ABG pO2 ABG HCO3 ABG Base Excess ABG Hemoglobin VBG pH Oxyhemoglobin Sodium Potassium Chloride Carbon Dioxide BUN Creatinine Glucose POC Glucose 201 H 233 H 269 H Lactic Acid Calcium AST Alkaline Phosphatase CK-MB (CK-2) CK-MB (CK-2) Rel Index Albumin TSH Urine WBC (Auto) Salicylates 02/26/17 02/26/17 02/26/17 11:48 13:49 21:26 WBC RBC Hgb Hct MCV MCH RDW Plt Count Lymph % (Auto) Luce % (Auto) Eos % (Auto) Seg Neutrophils % Seg Neuts % (Manual) Lymphocytes % (Manual) Seg Neutrophils # Seg Neutrophils # Man Lymphocytes # (Manual) APTT POC ABG pH ABG pH POC ABG pCO2 POC ABG pO2 ABG pO2 ABG HCO3 ABG Base Excess ABG Hemoglobin VBG pH Oxyhemoglobin Sodium Potassium Chloride Carbon Dioxide BUN Creatinine Glucose POC Glucose 333 H 322 H 244 H Lactic Acid Calcium AST Alkaline Phosphatase CK-MB (CK-2) CK-MB (CK-2) Rel Index Albumin TSH Urine WBC (Auto) Salicylates 02/27/17 02/27/17 02/27/17 05:27 13:51 21:48 WBC RBC Hgb Hct MCV MCH RDW Plt Count Lymph % (Auto) Luce % (Auto) Eos % (Auto) Seg Neutrophils % Seg Neuts % (Manual) Lymphocytes % (Manual) Seg Neutrophils # Seg Neutrophils # Man Lymphocytes # (Manual) APTT POC ABG pH ABG pH POC ABG pCO2 POC ABG pO2 ABG pO2 ABG HCO3 ABG Base Excess ABG Hemoglobin VBG pH Oxyhemoglobin Sodium Potassium Chloride Carbon Dioxide BUN Creatinine Glucose POC Glucose 217 H 239 H 254 H Lactic Acid Calcium AST Alkaline Phosphatase CK-MB (CK-2) CK-MB (CK-2) Rel Index Albumin TSH Urine WBC (Auto) Salicylates 02/28/17 02/28/17 02/28/17 05:38 11:00 19:44 WBC RBC Hgb Hct MCV MCH RDW Plt Count Lymph % (Auto) Luce % (Auto) Eos % (Auto) Seg Neutrophils % Seg Neuts % (Manual) Lymphocytes % (Manual) Seg Neutrophils # Seg Neutrophils # Man Lymphocytes # (Manual) APTT POC ABG pH ABG pH POC ABG pCO2 POC ABG pO2 ABG pO2 ABG HCO3 ABG Base Excess ABG Hemoglobin VBG pH Oxyhemoglobin Sodium Potassium Chloride Carbon Dioxide BUN Creatinine Glucose POC Glucose 325 H 203 H 116 H Lactic Acid Calcium AST Alkaline Phosphatase CK-MB (CK-2) CK-MB (CK-2) Rel Index Albumin TSH Urine WBC (Auto) Salicylates 03/01/17 03/01/17 03/01/17 00:08 05:31 12:17 WBC RBC Hgb Hct MCV MCH RDW Plt Count Lymph % (Auto) Luce % (Auto) Eos % (Auto) Seg Neutrophils % Seg Neuts % (Manual) Lymphocytes % (Manual) Seg Neutrophils # Seg Neutrophils # Man Lymphocytes # (Manual) APTT POC ABG pH ABG pH POC ABG pCO2 POC ABG pO2 ABG pO2 ABG HCO3 ABG Base Excess ABG Hemoglobin VBG pH Oxyhemoglobin Sodium Potassium Chloride Carbon Dioxide BUN Creatinine Glucose POC Glucose 202 H 183 H 184 H Lactic Acid Calcium AST Alkaline Phosphatase CK-MB (CK-2) CK-MB (CK-2) Rel Index Albumin TSH Urine WBC (Auto) Salicylates 03/02/17 03/02/17 03/02/17 00:12 05:58 18:22 WBC RBC Hgb Hct MCV MCH RDW Plt Count Lymph % (Auto) Luce % (Auto) Eos % (Auto) Seg Neutrophils % Seg Neuts % (Manual) Lymphocytes % (Manual) Seg Neutrophils # Seg Neutrophils # Man Lymphocytes # (Manual) APTT POC ABG pH ABG pH POC ABG pCO2 POC ABG pO2 ABG pO2 ABG HCO3 ABG Base Excess ABG Hemoglobin VBG pH Oxyhemoglobin Sodium Potassium Chloride Carbon Dioxide BUN Creatinine Glucose POC Glucose 117 H 176 H 156 H Lactic Acid Calcium AST Alkaline Phosphatase CK-MB (CK-2) CK-MB (CK-2) Rel Index Albumin TSH Urine WBC (Auto) Salicylates 03/02/17 03/03/17 03/03/17 23:51 05:44 11:32 WBC RBC Hgb Hct MCV MCH RDW Plt Count Lymph % (Auto) Luce % (Auto) Eos % (Auto) Seg Neutrophils % Seg Neuts % (Manual) Lymphocytes % (Manual) Seg Neutrophils # Seg Neutrophils # Man Lymphocytes # (Manual) APTT POC ABG pH ABG pH POC ABG pCO2 POC ABG pO2 ABG pO2 ABG HCO3 ABG Base Excess ABG Hemoglobin VBG pH Oxyhemoglobin Sodium Potassium Chloride Carbon Dioxide BUN Creatinine Glucose POC Glucose 211 H 117 H 133 H Lactic Acid Calcium AST Alkaline Phosphatase CK-MB (CK-2) CK-MB (CK-2) Rel Index Albumin TSH Urine WBC (Auto) Salicylates 03/03/17 03/03/17 03/04/17 17:43 23:17 05:30 WBC RBC Hgb Hct MCV MCH RDW Plt Count Lymph % (Auto) Luce % (Auto) Eos % (Auto) Seg Neutrophils % Seg Neuts % (Manual) Lymphocytes % (Manual) Seg Neutrophils # Seg Neutrophils # Man Lymphocytes # (Manual) APTT POC ABG pH ABG pH POC ABG pCO2 POC ABG pO2 ABG pO2 ABG HCO3 ABG Base Excess ABG Hemoglobin VBG pH Oxyhemoglobin Sodium Potassium Chloride Carbon Dioxide BUN Creatinine Glucose POC Glucose 206 H 170 H 126 H Lactic Acid Calcium AST Alkaline Phosphatase CK-MB (CK-2) CK-MB (CK-2) Rel Index Albumin TSH Urine WBC (Auto) Salicylates 03/04/17 03/04/17 03/05/17 12:17 17:27 05:20 WBC RBC Hgb Hct MCV MCH RDW Plt Count Lymph % (Auto) Luce % (Auto) Eos % (Auto) Seg Neutrophils % Seg Neuts % (Manual) Lymphocytes % (Manual) Seg Neutrophils # Seg Neutrophils # Man Lymphocytes # (Manual) APTT POC ABG pH ABG pH POC ABG pCO2 POC ABG pO2 ABG pO2 ABG HCO3 ABG Base Excess ABG Hemoglobin VBG pH Oxyhemoglobin Sodium Potassium Chloride Carbon Dioxide BUN Creatinine Glucose POC Glucose 135 H 121 H 185 H Lactic Acid Calcium AST Alkaline Phosphatase CK-MB (CK-2) CK-MB (CK-2) Rel Index Albumin TSH Urine WBC (Auto) Salicylates 03/05/17 03/06/17 03/06/17 11:50 11:52 17:34 WBC RBC Hgb Hct MCV MCH RDW Plt Count Lymph % (Auto) Luce % (Auto) Eos % (Auto) Seg Neutrophils % Seg Neuts % (Manual) Lymphocytes % (Manual) Seg Neutrophils # Seg Neutrophils # Man Lymphocytes # (Manual) APTT POC ABG pH ABG pH POC ABG pCO2 POC ABG pO2 ABG pO2 ABG HCO3 ABG Base Excess ABG Hemoglobin VBG pH Oxyhemoglobin Sodium Potassium Chloride Carbon Dioxide BUN Creatinine Glucose POC Glucose 116 H 133 H 181 H Lactic Acid Calcium AST Alkaline Phosphatase CK-MB (CK-2) CK-MB (CK-2) Rel Index Albumin TSH Urine WBC (Auto) Salicylates 03/07/17 03/07/17 03/07/17 05:21 11:36 17:49 WBC RBC Hgb Hct MCV MCH RDW Plt Count Lymph % (Auto) Luce % (Auto) Eos % (Auto) Seg Neutrophils % Seg Neuts % (Manual) Lymphocytes % (Manual) Seg Neutrophils # Seg Neutrophils # Man Lymphocytes # (Manual) APTT POC ABG pH ABG pH POC ABG pCO2 POC ABG pO2 ABG pO2 ABG HCO3 ABG Base Excess ABG Hemoglobin VBG pH Oxyhemoglobin Sodium Potassium Chloride Carbon Dioxide BUN Creatinine Glucose POC Glucose 159 H 137 H 158 H Lactic Acid Calcium AST Alkaline Phosphatase CK-MB (CK-2) CK-MB (CK-2) Rel Index Albumin TSH Urine WBC (Auto) Salicylates 03/08/17 03/08/17 03/08/17 05:51 13:58 23:50 WBC RBC Hgb Hct MCV MCH RDW Plt Count Lymph % (Auto) Luce % (Auto) Eos % (Auto) Seg Neutrophils % Seg Neuts % (Manual) Lymphocytes % (Manual) Seg Neutrophils # Seg Neutrophils # Man Lymphocytes # (Manual) APTT POC ABG pH ABG pH POC ABG pCO2 POC ABG pO2 ABG pO2 ABG HCO3 ABG Base Excess ABG Hemoglobin VBG pH Oxyhemoglobin Sodium Potassium Chloride Carbon Dioxide BUN Creatinine Glucose POC Glucose 122 H 182 H 114 H Lactic Acid Calcium AST Alkaline Phosphatase CK-MB (CK-2) CK-MB (CK-2) Rel Index Albumin TSH Urine WBC (Auto) Salicylates 03/09/17 03/09/17 03/09/17 05:21 05:51 05:51 WBC RBC 3.61 L Hgb 9.5 L Hct 28.3 L MCV 79 L MCH 26 L RDW 17.8 H Plt Count Lymph % (Auto) Luce % (Auto) Eos % (Auto) Seg Neutrophils % Seg Neuts % (Manual) Lymphocytes % (Manual) Seg Neutrophils # Seg Neutrophils # Man Lymphocytes # (Manual) APTT POC ABG pH ABG pH POC ABG pCO2 POC ABG pO2 ABG pO2 ABG HCO3 ABG Base Excess ABG Hemoglobin VBG pH Oxyhemoglobin Sodium 134 L Potassium Chloride 95.5 L Carbon Dioxide BUN 33 H Creatinine 0.5 L Glucose 143 H POC Glucose 153 H Lactic Acid Calcium AST Alkaline Phosphatase CK-MB (CK-2) CK-MB (CK-2) Rel Index Albumin TSH Urine WBC (Auto) Salicylates 03/09/17 03/09/17 03/09/17 12:10 18:13 21:00 WBC RBC Hgb Hct MCV MCH RDW Plt Count Lymph % (Auto) Luce % (Auto) Eos % (Auto) Seg Neutrophils % Seg Neuts % (Manual) Lymphocytes % (Manual) Seg Neutrophils # Seg Neutrophils # Man Lymphocytes # (Manual) APTT POC ABG pH ABG pH POC ABG pCO2 POC ABG pO2 ABG pO2 ABG HCO3 ABG Base Excess ABG Hemoglobin VBG pH Oxyhemoglobin Sodium Potassium Chloride Carbon Dioxide BUN Creatinine Glucose POC Glucose 203 H 221 H 198 H Lactic Acid Calcium AST Alkaline Phosphatase CK-MB (CK-2) CK-MB (CK-2) Rel Index Albumin TSH Urine WBC (Auto) Salicylates 03/09/17 03/10/17 03/10/17 23:58 05:09 05:09 WBC RBC Hgb 10.3 L Hct 30.5 L MCV 78 L MCH 26 L RDW 17.9 H Plt Count Lymph % (Auto) Luce % (Auto) 10.0 H Eos % (Auto) 6.0 H Seg Neutrophils % Seg Neuts % (Manual) Lymphocytes % (Manual) Seg Neutrophils # Seg Neutrophils # Man Lymphocytes # (Manual) APTT POC ABG pH ABG pH POC ABG pCO2 POC ABG pO2 ABG pO2 ABG HCO3 ABG Base Excess ABG Hemoglobin VBG pH Oxyhemoglobin Sodium 132 L Potassium Chloride 92.2 L Carbon Dioxide BUN 33 H Creatinine 0.5 L Glucose 50 L POC Glucose 167 H Lactic Acid Calcium AST Alkaline Phosphatase CK-MB (CK-2) CK-MB (CK-2) Rel Index Albumin TSH Urine WBC (Auto) Salicylates 03/10/17 03/10/17 03/10/17 05:33 05:34 11:48 WBC RBC Hgb Hct MCV MCH RDW Plt Count Lymph % (Auto) Luce % (Auto) Eos % (Auto) Seg Neutrophils % Seg Neuts % (Manual) Lymphocytes % (Manual) Seg Neutrophils # Seg Neutrophils # Man Lymphocytes # (Manual) APTT POC ABG pH ABG pH POC ABG pCO2 POC ABG pO2 ABG pO2 ABG HCO3 ABG Base Excess ABG Hemoglobin VBG pH Oxyhemoglobin Sodium Potassium Chloride Carbon Dioxide BUN Creatinine Glucose POC Glucose 52 L 53 L 148 H Lactic Acid Calcium AST Alkaline Phosphatase CK-MB (CK-2) CK-MB (CK-2) Rel Index Albumin TSH Urine WBC (Auto) Salicylates 03/10/17 03/10/1703/11/17 17:53 23:47 05:18 WBC RBC Hgb Hct MCV MCH RDW Plt Count Lymph % (Auto) Luce % (Auto) Eos % (Auto) Seg Neutrophils % Seg Neuts % (Manual) Lymphocytes % (Manual) Seg Neutrophils # Seg Neutrophils # Man Lymphocytes # (Manual) APTT POC ABG pH ABG pH POC ABG pCO2 POC ABG pO2 ABG pO2 ABG HCO3 ABG Base Excess ABG Hemoglobin VBG pH Oxyhemoglobin Sodium Potassium Chloride Carbon Dioxide BUN Creatinine Glucose POC Glucose 189 H 398 H 126 H Lactic Acid Calcium AST Alkaline Phosphatase CK-MB (CK-2) CK-MB (CK-2) Rel Index Albumin TSH Urine WBC (Auto) Salicylates 03/11/17 11:53 WBC RBC Hgb Hct MCV MCH RDW Plt Count Lymph % (Auto) Luce % (Auto) Eos % (Auto) Seg Neutrophils % Seg Neuts % (Manual) Lymphocytes % (Manual) Seg Neutrophils # Seg Neutrophils # Man Lymphocytes # (Manual) APTT POC ABG pH ABG pH POC ABG pCO2 POC ABG pO2 ABG pO2 ABG HCO3 ABG Base Excess ABG Hemoglobin VBG pH Oxyhemoglobin Sodium Potassium Chloride Carbon Dioxide BUN Creatinine Glucose POC Glucose 198 H Lactic Acid Calcium AST Alkaline Phosphatase CK-MB (CK-2) CK-MB (CK-2) Rel Index Albumin TSH Urine WBC (Auto) Salicylates
[2017-03-12] MEDS: HumuLIN R SUB-Q SCH ×4 (00:24→18:43)
[2017-03-12] MEDS: SYNTHROID PO SCH (05:18)
--- NOTE | 2017-03-12 08:44 | Progress Note ---
Assessment and Plan Assessment and plan: Hypoglycemic brain injury. Patient was found hypoglycemic. He is now in coma, vegetative state, Unresponsive Persistent vegetative state. Supportive care Metabolic encephalopathy due to hypoglycemia Hypoglycemia/hypothermia, resolved Acute respiratory failure. Intubated, on ventilator. Hyponatremia. Now resolved. Hypothyroidism Diabetes mellitus type 2. Check fingerstick glucose q 6h. Continue Levemir subcut daily Hypertension. BP stable Leukocytosis due to UTI. UTI with ESBL. Patient is DNR- awaiting hospice placement, needs guardianship from the state to give consent, as has no family to give consent History Interval history: Patient found unresponsive, diagnosed with hypoglycemia with brain injury, Still unresponsive, no new events Hospitalist Physical - Physical exam Narrative exam: Gen Appearance: Not in acute distress, malnourished, intubated HEENT: normocephalic, atraumatic Neck: supple, no JVD Lungs: clear to auscultation bilaterally, no crackles or wheezes Heart: S1 and S2 regular, no murmurs, rubs or gallop Abdomen: Soft , non tender, non distended, normal bowel sounds Extremity: No edema, clubbing or cyanosis Neuro : Intubated, Unresponsive, vegetative state - Constitutional Vitals: Temp Pulse Resp BP Pulse Ox 99.2 F 80 17 138/76 100 03/12/17 04:00 03/12/17 07:32 03/12/17 04:00 03/12/17 07:32 03/12/17 07:32 General appearance: Present: no acute distress, well-nourished Results - Labs CBC & Chem 7: 03/10/17 05:09 03/10/17 05:09 Labs: Laboratory Last Values WBC 5.3 K/mm3 (4.5-11.0) 03/10/17 05:09 RBC 3.92 M/mm3 (3.65-5.03) 03/10/17 05:09 Hgb 10.3 gm/dl (11.8-15.2) L 03/10/17 05:09 Hct 30.5 % (35.5-45.6) L 03/10/17 05:09 MCV 78 fl (84-94) L 03/10/17 05:09 MCH 26 pg (28-32) L 03/10/17 05:09 MCHC 34 % (32-34) 03/10/17 05:09 RDW 17.9 % (13.2-15.2) H 03/10/17 05:09 Plt Count 316 K/mm3 (140-440) 03/10/17 05:09 Lymph % (Auto) 32.9 % (13.4-35.0) 03/10/17 05:09 [place] % (Auto) 10.0 % (0.0-7.3) H 03/10/17 05:09 Eos % (Auto) 6.0 % (0.0-4.3) H 03/10/17 05:09 Baso % (Auto) 0.9 % (0.0-1.8) 03/10/17 05:09 Lymph # 1.7 K/mm3 (1.2-5.4) 03/10/17 05:09 [place] # 0.5 K/mm3 (0.0-0.8) 03/10/17 05:09 Eos # 0.3 K/mm3 (0.0-0.4) 03/10/17 05:09 Baso # 0.0 K/mm3 (0.0-0.1) 03/10/17 05:09 Add Manual Diff Complete 01/10/17 04:30 Total Counted 100 01/10/17 04:30 Seg Neutrophils % 50.2 % (40.0-70.0) 03/10/17 05:09 Seg Neuts % (Manual) 88.0 % (40.0-70.0) H 01/10/17 04:30 Band Neutrophils % 7.0 % 01/10/17 04:30 Lymphocytes % (Manual) 4.0 % (13.4-35.0) L 01/10/17 04:30 Reactive Lymphs % (Man) 0 % 01/10/17 04:30 Monocytes % (Manual) 1.0 % (0.0-7.3) 01/10/17 04:30 Eosinophils % (Manual) 0 % (0.0-4.3) 01/10/17 04:30 Basophils % (Manual) 0 % (0.0-1.8) 01/10/17 04:30 Metamyelocytes % 0 % 01/10/17 04:30 Myelocytes % 0 % 01/10/17 04:30 Promyelocytes % 0 % 01/10/17 04:30 Blast Cells % 0 % 01/10/17 04:30 Nucleated RBC % Not Reportable 01/10/17 04:30 Seg Neutrophils # 2.6 K/mm3 (1.8-7.7) 03/10/17 05:09 Seg Neutrophils # Man 21.2 K/mm3 (1.8-7.7) H 01/10/17 04:30 Band Neutrophils # 1.7 K/mm3 01/10/17 04:30 Lymphocytes # (Manual) 1.0 K/mm3 (1.2-5.4) L 01/10/17 04:30 Abs React Lymphs (Man) 0.0 K/mm3 01/10/17 04:30 Monocytes # (Manual) 0.2 K/mm3 (0.0-0.8) 01/10/17 04:30 Eosinophils # (Manual) 0.0 K/mm3 (0.0-0.4) 01/10/17 04:30 Basophils # (Manual) 0.0 K/mm3 (0.0-0.1) 01/10/17 04:30 Metamyelocytes # 0.0 K/mm3 01/10/17 04:30 Myelocytes # 0.0 K/mm3 01/10/17 04:30 Promyelocytes # 0.0 K/mm3 01/10/17 04:30 Blast Cells # 0.0 K/mm3 01/10/17 04:30 WBC Morphology Not Reportable 01/10/17 04:30 Hypersegmented Neuts Not Reportable 01/10/17 04:30 Hyposegmented Neuts Not Reportable 01/10/17 04:30 Hypogranular Neuts Not Reportable 01/10/17 04:30 Smudge Cells Not Reportable 01/10/17 04:30 Toxic Granulation Not Reportable 01/10/17 04:30 Toxic Vacuolation Not Reportable 01/10/17 04:30 Dohle Bodies Not Reportable 01/10/17 04:30 Pelger-Huet Anomaly Not Reportable 01/10/17 04:30 [place] Rods Not Reportable 01/10/17 04:30 Platelet Estimate Consistent w auto 01/10/17 04:30 Clumped Platelets Not Reportable 01/10/17 04:30 Plt Clumps, EDTA Not Reportable 01/10/17 04:30 Large Platelets Not Reportable 01/10/17 04:30 Giant Platelets Not Reportable 01/10/17 04:30 Platelet Satelliting Not Reportable 01/10/17 04:30 Plt Morphology Comment Not Reportable 01/10/17 04:30 RBC Morphology Not Reportable 01/10/17 04:30 Dimorphic RBCs Not Reportable 01/10/17 04:30 Polychromasia Not Reportable 01/10/17 04:30 Hypochromasia 1+ 01/10/17 04:30 Poikilocytosis Not Reportable 01/10/17 04:30 Anisocytosis Not Reportable 01/10/17 04:30 Microcytosis Not Reportable 01/10/17 04:30 Macrocytosis Not Reportable 01/10/17 04:30 Spherocytes Not Reportable 01/10/17 04:30 Pappenheimer Bodies Not Reportable 01/10/17 04:30 Sickle Cells Not Reportable 01/10/17 04:30 Target Cells Not Reportable 01/10/17 04:30 Tear Drop Cells Not Reportable 01/10/17 04:30 Ovalocytes Not Reportable 01/10/17 04:30 Helmet Cells Not Reportable 01/10/17 04:30 Jarrett-Mcdade Bodies Not Reportable 01/10/17 04:30 [place] Rings Not Reportable 01/10/17 04:30 [place] Cells Not Reportable 01/10/17 04:30 Bite Cells Not Reportable 01/10/17 04:30 Crenated Cell Not Reportable 01/10/17 04:30 Elliptocytes Not Reportable 01/10/17 04:30 Acanthocytes (Spur) Not Reportable 01/10/17 04:30 Rouleaux Not Reportable 01/10/17 04:30 Hemoglobin C Crystals Not Reportable 01/10/17 04:30 Schistocytes Not Reportable 01/10/17 04:30 Malaria parasites Not Reportable 01/10/17 04:30 Kyle Bodies Not Reportable 01/10/17 04:30 Hem Pathologist Commnt No 01/10/17 04:30 PT 14.1 Sec. (12.2-14.9) 01/17/17 04:10 INR 1.04 (0.87-1.13) 01/17/17 04:10 APTT 36.6 Sec. (24.2-36.6) 01/17/17 04:10 POC ABG pH 7.442 (7.35-7.45) 01/31/17 18:55 ABG pH 7.420 pH Units (7.350-7.450) 01/17/17 04:35 POC ABG pCO2 32.8 (35-45) L 01/31/17 18:55 ABG pCO2 34.5 mm Hg 01/17/17 04:35 POC ABG pO2 82 (80-105) 01/31/17 18:55 ABG pO2 160.3 mm Hg (80.0-90.0) H 01/17/17 04:35 POC ABG HCO3 22.4 01/31/17 18:55 ABG HCO3 21.9 mmol/L (20.0-26.0) 01/17/17 04:35 POC ABG Total CO2 23 01/31/17 18:55 POC ABG O2 Sat 97 01/31/17 18:55 ABG O2 Saturation 99.0 % (95.0-99.0) 01/17/17 04:35 ABG O2 Content 11.1 (0.0-44) 01/17/17 04:35 POC ABG Base Excess -2 01/31/17 18:55 ABG Base Excess -2.3 mmol/L (-2.0-3.0) L 01/17/17 04:35 ABG Hemoglobin 7.9 gm/dl (14.0-18.0) L 01/17/17 04:35 ABG Carboxyhemoglobin 1.5 % (0.0-5.0) 01/17/17 04:35 ABG Methemoglobin 0.5 % (0.0-1.5) 01/17/17 04:35 VBG pH 7.284 (7.320-7.420) L 01/09/17 10:16 Oxyhemoglobin 97.1 % (95.0-99.0) 01/17/17 04:35 FiO2 25 % 01/31/17 18:55 Sodium 132 mmol/L (137-145) L 03/10/17 05:09 Potassium 4.1 mmol/L (3.6-5.0) 03/10/17 05:09 Chloride 92.2 mmol/L (98-107) L 03/10/17 05:09 Carbon Dioxide 26 mmol/L (22-30) 03/10/17 05:09 Anion Gap 18 mmol/L 03/10/17 05:09 BUN 33 mg/dL (9-20) H 03/10/17 05:09 Creatinine 0.5 mg/dL (0.8-1.5) L 03/10/17 05:09 Estimated GFR > 60 ml/min 03/10/17 05:09 BUN/Creatinine Ratio 66 % 03/10/17 05:09 Glucose 50 mg/dL (75-100) L 03/10/17 05:09 POC Glucose 205 (70-105) H 03/12/17 04:36 Lactic Acid 0.80 mmol/L (0.7-2.0) 01/30/17 11:49 Calcium 8.9 mg/dL (8.4-10.2) 03/10/17 05:09 Phosphorus 3.60 mg/dL (2.5-4.5) 01/22/17 04:00 Magnesium 2.10 mg/dL (1.7-2.3) 01/22/17 04:00 Total Bilirubin 0.30 mg/dL (0.1-1.2) 01/22/17 04:00 AST 44 units/L (5-40) H 01/22/17 04:00 ALT 23 units/L (7-56) 01/22/17 04:00 Alkaline Phosphatase 379 units/L (35-129) H 01/22/17 04:00 Ammonia 35.0 umol/L (25-60) 01/09/17 10:16 Total Creatine Kinase 135 units/L (55-170) 01/09/17 10:16 CK-MB (CK-2) 7.1 ng/mL (0.0-4.0) H 01/09/17 10:16 CK-MB (CK-2) Rel Index 5.2 (0-4) H 01/09/17 10:16 Troponin T < 0.010 ng/mL (0.00-0.029) 01/09/17 10:16 NT-Pro-B Natriuret Pep 602.9 pg/mL (0-900) 01/09/17 10:16 Total Protein 7.9 g/dL (6.3-8.2) 01/22/17 04:00 Albumin 2.7 g/dL (3.9-5) L 01/22/17 04:00 Albumin/Globulin Ratio 0.5 % 01/22/17 04:00 TSH 52.800 mlU/mL (0.270-4.200) H 01/09/17 10:16 Free T4 0.78 ng/dL (0.76-1.46) 01/09/17 10:16 Total Cortisol 54.8 mcg/dL () 01/09/17 16:19 Urine Color Yellow (Yellow) 01/28/17 17:52 Urine Turbidity Clear (Clear) 01/28/17 17:52 Urine pH 6.0 (5.0-7.0) 01/28/17 17:52 Ur Specific [place] 1.016 (1.003-1.030) 01/28/17 17:52 Urine Protein 100 mg/dl mg/dL (Negative) 01/28/17 17:52 Urine Glucose (UA) >=500 mg/dL (Negative) 01/28/17 17:52 Urine Ketones Neg mg/dL (Negative) 01/28/17 17:52 Urine Blood Sm (Negative) 01/28/17 17:52 Urine Nitrite Neg (Negative) 01/28/17 17:52 Urine Bilirubin Neg (Negative) 01/28/17 17:52 Urine Urobilinogen < 2.0 mg/dL (<2.0) 01/28/17 17:52 Ur Leukocyte Esterase Lg (Negative) 01/28/17 17:52 Urine WBC (Auto) > 182.0 /HPF (0.0-6.0) H 01/28/17 17:52 Urine RBC (Auto) 113.0 /HPF (0.0-6.0) 01/28/17 17:52 Urine Bacteria (Auto) 2+ /HPF (Negative) 01/28/17 17:52 Urine WBC Clumps 3+ /HPF 01/28/17 17:52 Urine Mucus Few /HPF 01/14/17 14:07 Urine Yeast (Budding) 3+ /HPF 01/14/17 14:07 Salicylates < 0.3 mg/dL (2.8-20.0) L 01/09/17 10:16 Urine Opiates Screen Presumptive negative 01/09/17 10:23 Urine Methadone Screen Presumptive negative 01/09/17 10:23 Acetaminophen < 15.0 ug/mL (10.0-30.0) 01/09/17 10:16 Ur Barbiturates Screen Presumptive negative 01/09/17 10:23 Ur Phencyclidine Scrn Presumptive negative 01/09/17 10:23 Ur Amphetamines Screen Presumptive negative 01/09/17 10:23 U Benzodiazepines Scrn Presumptive negative 01/09/17 10:23 Urine Cocaine Screen Presumptive negative 01/09/17 10:23 U Marijuana (THC) Screen Presumptive negative 01/09/17 10:23 Drugs of Abuse Note Disclamer 01/09/17 10:23 Plasma/Serum Alcohol < 0.01 gm% (0-0.07) 01/09/17 10:16
[2017-03-12] MEDS: PEPCID PO SCH ×2 (10:20→22:39)
--- NOTE | 2017-03-12 11:33 | Progress Note ---
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 (6) UTI (urinary tract infection) Current Visit: Yes Status: Acute (7) Pyelonephritis Current Visit: No Status: Acute (8) Renal insufficiency Current Visit: No Status: Acute (9) SIRS (systemic inflammatory response syndrome) Current Visit: No Status: Acute Subjective Principal diagnosis: Acute respiratory failure,encephalopathy Interval history: on vent Objective - Exam Narrative Exam: AC 450 fio2 25% Vital Signs - 12hr 03/11/17 03/12/17 03/12/17 23:38 00:00 02:00 Temperature 100.2 F H Pulse Rate 79 81 78 Respiratory 16 14 Rate Blood Pressure 119/74 124/76 121/72 O2 Sat by Pulse 100 100 100 Oximetry 03/12/17 03/12/17 03/12/17 02:14 03:06 04:00 Temperature 99.2 F Pulse Rate 78 78 78 Respiratory 16 17 Rate Blood Pressure 121/72 110/70 O2 Sat by Pulse 100 100 100 Oximetry 03/12/17 03/12/17 03/12/17 05:17 07:32 08:00 Temperature 100.1 F H Pulse Rate 80 Respiratory Rate Blood Pressure 138/76 O2 Sat by Pulse 100 100 Oximetry 03/12/17 08:35 Temperature Pulse Rate Respiratory Rate Blood Pressure O2 Sat by Pulse 98 Oximetry Constitutional: no acute distress, other (intubated, on vent support) Eyes: non-icteric ENT: oropharynx moist Neck: supple Effort: normal Ascultation: Bilateral: clear, diminished breath sounds Cardiovascular: regular rate and rhythm Gastrointestinal: normoactive bowel sounds, soft, non-tender, non-distended Integumentary: normal Extremities: no cyanosis, no edema, pink and warm Neurologic: other (awake spontaneously, not not following any commands. Fixed stare.) Psychiatric: other (unable to obtain) CBC and BMP: 03/10/17 05:09 03/10/17 05:09 ABG, PT/INR, D-dimer: ABG POC ABG pH 7.442 (7.35-7.45) 01/31/17 18:55 ABG pH 7.420 pH Units (7.350-7.450) 01/17/17 04:35 POC ABG pCO2 32.8 (35-45) L 01/31/17 18:55 ABG pCO2 34.5 mm Hg 01/17/17 04:35 POC ABG pO2 82 (80-105) 01/31/17 18:55 ABG pO2 160.3 mm Hg (80.0-90.0) H 01/17/17 04:35 POC ABG HCO3 22.4 01/31/17 18:55 POC ABG Total CO2 23 01/31/17 18:55 POC ABG O2 Sat 97 01/31/17 18:55 ABG O2 Saturation 99.0 % (95.0-99.0) 01/17/17 04:35 PT/INR, D-dimer PT 14.1 Sec. (12.2-14.9) 01/17/17 04:10 INR 1.04 (0.87-1.13) 01/17/17 04:10 Abnormal lab findings: Abnormal Labs 01/09/17 01/09/17 01/09/17 10:16 10:16 10:16 WBC RBC Hgb 9.7 L Hct 28.4 L MCV 76 L MCH 26 L RDW 17.2 H Plt Count 448 H Lymph % (Auto) [place] % (Auto) Eos % (Auto) Seg Neutrophils % 79.5 H Seg Neuts % (Manual) Lymphocytes % (Manual) Seg Neutrophils # Seg Neutrophils # Man Lymphocytes # (Manual) APTT 39.6 H POC ABG pH ABG pH POC ABG pCO2 POC ABG pO2 ABG pO2 ABG HCO3 ABG Base Excess ABG Hemoglobin VBG pH Oxyhemoglobin Sodium 132 L Potassium Chloride 96.7 L Carbon Dioxide 21 L BUN 34 H Creatinine Glucose POC Glucose Lactic Acid Calcium 8.3 L AST Alkaline Phosphatase 151 H CK-MB (CK-2) 7.1 H CK-MB (CK-2) Rel Index 5.2 H Albumin 3.3 L TSH Urine WBC (Auto) Salicylates 01/09/17 01/09/17 01/09/17 10:16 10:16 10:16 WBC RBC Hgb Hct MCV MCH RDW Plt Count Lymph % (Auto) [place] % (Auto) Eos % (Auto) Seg Neutrophils % Seg Neuts % (Manual) Lymphocytes % (Manual) Seg Neutrophils # Seg Neutrophils # Man Lymphocytes # (Manual) APTT POC ABG pH ABG pH POC ABG pCO2 POC ABG pO2 ABG pO2 ABG HCO3 ABG Base Excess ABG Hemoglobin VBG pH 7.284 L Oxyhemoglobin Sodium Potassium Chloride Carbon Dioxide BUN Creatinine Glucose POC Glucose Lactic Acid Calcium AST Alkaline Phosphatase CK-MB (CK-2) CK-MB (CK-2) Rel Index Albumin TSH 52.800 H Urine WBC (Auto) Salicylates < 0.3 L 01/09/17 01/09/17 01/09/17 10:23 11:14 12:49 WBC RBC Hgb Hct MCV MCH RDW Plt Count Lymph % (Auto) [place] % (Auto) Eos % (Auto) Seg Neutrophils % Seg Neuts % (Manual) Lymphocytes % (Manual) Seg Neutrophils # Seg Neutrophils # Man Lymphocytes # (Manual) APTT POC ABG pH ABG pH POC ABG pCO2 POC ABG pO2 643 H ABG pO2 ABG HCO3 ABG Base Excess ABG Hemoglobin VBG pH Oxyhemoglobin Sodium Potassium Chloride Carbon Dioxide BUN Creatinine Glucose POC Glucose < 40 L Lactic Acid Calcium AST Alkaline Phosphatase CK-MB (CK-2) CK-MB (CK-2) Rel Index Albumin TSH Urine WBC (Auto) 61.0 H Salicylates 01/09/17 01/09/17 01/09/17 13:13 14:21 15:09 WBC RBC Hgb Hct MCV MCH RDW Plt Count Lymph % (Auto) [place] % (Auto) Eos % (Auto) Seg Neutrophils % Seg Neuts % (Manual) Lymphocytes % (Manual) Seg Neutrophils # Seg Neutrophils # Man Lymphocytes # (Manual) APTT POC ABG pH ABG pH POC ABG pCO2 POC ABG pO2 ABG pO2 ABG HCO3 ABG Base Excess ABG Hemoglobin VBG pH Oxyhemoglobin Sodium Potassium Chloride Carbon Dioxide BUN Creatinine Glucose POC Glucose 128 H 65 L 120 H Lactic Acid Calcium AST Alkaline Phosphatase CK-MB (CK-2) CK-MB (CK-2) Rel Index Albumin TSH Urine WBC (Auto) Salicylates 01/09/17 01/09/17 01/10/17 16:28 17:14 04:30 WBC 24.1 H RBC 3.38 L Hgb 8.5 L Hct 26.0 L MCV 77 L MCH 25 L RDW 17.9 H Plt Count 474 H Lymph % (Auto) [place] % (Auto) Eos % (Auto) Seg Neutrophils % Seg Neuts % (Manual) 88.0 H Lymphocytes % (Manual) 4.0 L Seg Neutrophils # Seg Neutrophils # Man 21.2 H Lymphocytes # (Manual) 1.0 L APTT POC ABG pH ABG pH POC ABG pCO2 POC ABG pO2 ABG pO2 ABG HCO3 ABG Base Excess ABG Hemoglobin VBG pH Oxyhemoglobin Sodium Potassium Chloride Carbon Dioxide BUN Creatinine Glucose POC Glucose 44 L 112 H Lactic Acid Calcium AST Alkaline Phosphatase CK-MB (CK-2) CK-MB (CK-2) Rel Index Albumin TSH Urine WBC (Auto) Salicylates 01/10/17 01/10/17 01/10/17 04:30 05:41 05:45 WBC RBC Hgb Hct MCV MCH RDW Plt Count Lymph % (Auto) [place] % (Auto) Eos % (Auto) Seg Neutrophils % Seg Neuts % (Manual) Lymphocytes % (Manual) Seg Neutrophils # Seg Neutrophils # Man Lymphocytes # (Manual) APTT POC ABG pH ABG pH POC ABG pCO2 26.6 L POC ABG pO2 207 H ABG pO2 ABG HCO3 ABG Base Excess ABG Hemoglobin VBG pH Oxyhemoglobin Sodium Potassium Chloride Carbon Dioxide 17 L BUN 27 H Creatinine Glucose POC Glucose 68 L Lactic Acid Calcium 7.5 L AST Alkaline Phosphatase CK-MB (CK-2) CK-MB (CK-2) Rel Index Albumin TSH Urine WBC (Auto) Salicylates 01/10/17 01/10/17 01/10/17 07:47 10:50 13:41 WBC RBC Hgb Hct MCV MCH RDW Plt Count Lymph % (Auto) [place] % (Auto) Eos % (Auto) Seg Neutrophils % Seg Neuts % (Manual) Lymphocytes % (Manual) Seg Neutrophils # Seg Neutrophils # Man Lymphocytes # (Manual) APTT POC ABG pH ABG pH POC ABG pCO2 POC ABG pO2 ABG pO2 ABG HCO3 ABG Base Excess ABG Hemoglobin VBG pH Oxyhemoglobin Sodium Potassium Chloride Carbon Dioxide BUN Creatinine Glucose POC Glucose 148 H 165 H 114 H Lactic Acid Calcium AST Alkaline Phosphatase CK-MB (CK-2) CK-MB (CK-2) Rel Index Albumin TSH Urine WBC (Auto) Salicylates 01/10/17 01/10/17 01/10/17 20:20 21:39 23:24 WBC RBC Hgb Hct MCV MCH RDW Plt Count Lymph % (Auto) [place] % (Auto) Eos % (Auto) Seg Neutrophils % Seg Neuts % (Manual) Lymphocytes % (Manual) Seg Neutrophils # Seg Neutrophils # Man Lymphocytes # (Manual) APTT POC ABG pH ABG pH POC ABG pCO2 POC ABG pO2 ABG pO2 ABG HCO3 ABG Base Excess ABG Hemoglobin VBG pH Oxyhemoglobin Sodium Potassium Chloride Carbon Dioxide BUN Creatinine Glucose POC Glucose 150 H 175 H 155 H Lactic Acid Calcium AST Alkaline Phosphatase CK-MB (CK-2) CK-MB (CK-2) Rel Index Albumin TSH Urine WBC (Auto) Salicylates 01/11/17 01/11/17 01/11/17 00:19 04:06 05:20 WBC 15.2 H RBC 3.40 L Hgb 8.9 L Hct 26.3 L MCV 78 L MCH 26 L RDW 18.6 H Plt Count 462 H Lymph % (Auto) 13.2 L [place] % (Auto) Eos % (Auto) Seg Neutrophils % 80.8 H Seg Neuts % (Manual) Lymphocytes % (Manual) Seg Neutrophils # 12.3 H Seg Neutrophils # Man Lymphocytes # (Manual) APTT POC ABG pH 7.463 H ABG pH POC ABG pCO2 26.2 L POC ABG pO2 185 H ABG pO2 ABG HCO3 ABG Base Excess ABG Hemoglobin VBG pH Oxyhemoglobin Sodium Potassium Chloride Carbon Dioxide BUN Creatinine Glucose POC Glucose 163 H Lactic Acid Calcium AST Alkaline Phosphatase CK-MB (CK-2) CK-MB (CK-2) Rel Index Albumin TSH Urine WBC (Auto) Salicylates 01/11/17 01/11/17 01/11/17 05:20 06:21 07:57 WBC RBC Hgb Hct MCV MCH RDW Plt Count Lymph % (Auto) [place] % (Auto) Eos % (Auto) Seg Neutrophils % Seg Neuts % (Manual) Lymphocytes % (Manual) Seg Neutrophils # Seg Neutrophils # Man Lymphocytes # (Manual) APTT POC ABG pH ABG pH POC ABG pCO2 POC ABG pO2 ABG pO2 ABG HCO3 ABG Base Excess ABG Hemoglobin VBG pH Oxyhemoglobin Sodium Potassium 3.4 L Chloride 111.5 H Carbon Dioxide 17 L BUN Creatinine Glucose 147 H POC Glucose 139 H 188 H Lactic Acid Calcium 8.0 L AST Alkaline Phosphatase CK-MB (CK-2) CK-MB (CK-2) Rel Index Albumin TSH Urine WBC (Auto) Salicylates 01/11/17 01/11/17 01/11/17 11:46 16:50 23:15 WBC RBC Hgb Hct MCV MCH RDW Plt Count Lymph % (Auto) [place] % (Auto) Eos % (Auto) Seg Neutrophils % Seg Neuts % (Manual) Lymphocytes % (Manual) Seg Neutrophils # Seg Neutrophils # Man Lymphocytes # (Manual) APTT POC ABG pH ABG pH POC ABG pCO2 POC ABG pO2 ABG pO2 ABG HCO3 ABG Base Excess ABG Hemoglobin VBG pH Oxyhemoglobin Sodium Potassium Chloride Carbon Dioxide BUN Creatinine Glucose POC Glucose 199 H 235 H 155 H Lactic Acid Calcium AST Alkaline Phosphatase CK-MB (CK-2) CK-MB (CK-2) Rel Index Albumin TSH Urine WBC (Auto) Salicylates 01/12/17 01/12/17 01/12/17 05:02 06:56 14:50 WBC RBC Hgb Hct MCV MCH RDW Plt Count Lymph % (Auto) [place] % (Auto) Eos % (Auto) Seg Neutrophils % Seg Neuts % (Manual) Lymphocytes % (Manual) Seg Neutrophils # Seg Neutrophils # Man Lymphocytes # (Manual) APTT POC ABG pH ABG pH POC ABG pCO2 28.0 L POC ABG pO2 178 H ABG pO2 ABG HCO3 ABG Base Excess ABG Hemoglobin VBG pH Oxyhemoglobin Sodium Potassium Chloride Carbon Dioxide BUN Creatinine Glucose POC Glucose 119 H 164 H Lactic Acid Calcium AST Alkaline Phosphatase CK-MB (CK-2) CK-MB (CK-2) Rel Index Albumin TSH Urine WBC (Auto) Salicylates 01/13/17 01/13/17 01/13/17 03:37 03:37 04:26 WBC RBC 3.61 L Hgb 9.3 L Hct 28.0 L MCV 78 L MCH 26 L RDW 18.2 H Plt Count Lymph % (Auto) [place] % (Auto) Eos % (Auto) Seg Neutrophils % Seg Neuts % (Manual) Lymphocytes % (Manual) Seg Neutrophils # Seg Neutrophils # Man Lymphocytes # (Manual) APTT POC ABG pH 7.485 H ABG pH POC ABG pCO2 25.4 L POC ABG pO2 73 L ABG pO2 ABG HCO3 ABG Base Excess ABG Hemoglobin VBG pH Oxyhemoglobin Sodium Potassium Chloride 112.4 H Carbon Dioxide 19 L BUN Creatinine Glucose 118 H POC Glucose Lactic Acid Calcium 8.0 L AST Alkaline Phosphatase CK-MB (CK-2) CK-MB (CK-2) Rel Index Albumin TSH Urine WBC (Auto) Salicylates 01/13/17 01/13/17 01/13/17 06:15 11:50 17:31 WBC RBC Hgb Hct MCV MCH RDW Plt Count Lymph % (Auto) [place] % (Auto) Eos % (Auto) Seg Neutrophils % Seg Neuts % (Manual) Lymphocytes % (Manual) Seg Neutrophils # Seg Neutrophils # Man Lymphocytes # (Manual) APTT POC ABG pH ABG pH POC ABG pCO2 POC ABG pO2 ABG pO2 ABG HCO3 ABG Base Excess ABG Hemoglobin VBG pH Oxyhemoglobin Sodium Potassium Chloride Carbon Dioxide BUN Creatinine Glucose POC Glucose 116 H 171 H 203 H Lactic Acid Calcium AST Alkaline Phosphatase CK-MB (CK-2) CK-MB (CK-2) Rel Index Albumin TSH Urine WBC (Auto) Salicylates 01/14/17 01/14/17 01/14/17 00:02 04:50 04:50 WBC RBC 3.32 L Hgb 8.5 L Hct 26.1 L MCV 79 L MCH 26 L RDW 18.2 H Plt Count Lymph % (Auto) [place] % (Auto) 9.0 H Eos % (Auto) Seg Neutrophils % Seg Neuts % (Manual) Lymphocytes % (Manual) Seg Neutrophils # Seg Neutrophils # Man Lymphocytes # (Manual) APTT POC ABG pH ABG pH POC ABG pCO2 POC ABG pO2 ABG pO2 ABG HCO3 ABG Base Excess ABG Hemoglobin VBG pH Oxyhemoglobin Sodium Potassium Chloride 112.5 H Carbon Dioxide BUN Creatinine Glucose 149 H POC Glucose 157 H Lactic Acid Calcium 8.1 L AST Alkaline Phosphatase CK-MB (CK-2) CK-MB (CK-2) Rel Index Albumin TSH Urine WBC (Auto) Salicylates 01/14/17 01/14/17 01/14/17 05:10 11:27 14:07 WBC RBC Hgb Hct MCV MCH RDW Plt Count Lymph % (Auto) [place] % (Auto) Eos % (Auto) Seg Neutrophils % Seg Neuts % (Manual) Lymphocytes % (Manual) Seg Neutrophils # Seg Neutrophils # Man Lymphocytes # (Manual) APTT POC ABG pH ABG pH POC ABG pCO2 POC ABG pO2 ABG pO2 ABG HCO3 ABG Base Excess ABG Hemoglobin VBG pH Oxyhemoglobin Sodium Potassium Chloride Carbon Dioxide BUN Creatinine Glucose POC Glucose 176 H 147 H Lactic Acid Calcium AST Alkaline Phosphatase CK-MB (CK-2) CK-MB (CK-2) Rel Index Albumin TSH Urine WBC (Auto) 53.0 H Salicylates 01/14/17 01/15/17 01/15/17 16:52 00:04 05:26 WBC RBC Hgb Hct MCV MCH RDW Plt Count Lymph % (Auto) [place] % (Auto) Eos % (Auto) Seg Neutrophils % Seg Neuts % (Manual) Lymphocytes % (Manual) Seg Neutrophils # Seg Neutrophils # Man Lymphocytes # (Manual) APTT POC ABG pH ABG pH POC ABG pCO2 POC ABG pO2 ABG pO2 ABG HCO3 ABG Base Excess ABG Hemoglobin VBG pH Oxyhemoglobin Sodium Potassium Chloride Carbon Dioxide BUN Creatinine Glucose POC Glucose 131 H 193 H 215 H Lactic Acid Calcium AST Alkaline Phosphatase CK-MB (CK-2) CK-MB (CK-2) Rel Index Albumin TSH Urine WBC (Auto) Salicylates 01/15/17 01/15/17 01/15/17 11:49 17:47 21:33 WBC RBC Hgb Hct MCV MCH RDW Plt Count Lymph % (Auto) [place] % (Auto) Eos % (Auto) Seg Neutrophils % Seg Neuts % (Manual) Lymphocytes % (Manual) Seg Neutrophils # Seg Neutrophils # Man Lymphocytes # (Manual) APTT POC ABG pH ABG pH POC ABG pCO2 POC ABG pO2 ABG pO2 ABG HCO3 ABG Base Excess ABG Hemoglobin VBG pH Oxyhemoglobin Sodium Potassium Chloride Carbon Dioxide BUN Creatinine Glucose POC Glucose 121 H 211 H 275 H Lactic Acid Calcium AST Alkaline Phosphatase CK-MB (CK-2) CK-MB (CK-2) Rel Index Albumin TSH Urine WBC (Auto) Salicylates 01/16/17 01/16/17 01/16/17 04:30 05:28 13:45 WBC RBC Hgb Hct MCV MCH RDW Plt Count Lymph % (Auto) [place] % (Auto) Eos % (Auto) Seg Neutrophils % Seg Neuts % (Manual) Lymphocytes % (Manual) Seg Neutrophils # Seg Neutrophils # Man Lymphocytes # (Manual) APTT POC ABG pH ABG pH 7.457 H POC ABG pCO2 POC ABG pO2 ABG pO2 55.1 L ABG HCO3 19.4 L ABG Base Excess -4.0 L ABG Hemoglobin 6.8 L VBG pH Oxyhemoglobin 94.9 L Sodium Potassium Chloride Carbon Dioxide BUN Creatinine Glucose POC Glucose 271 H 236 H Lactic Acid Calcium AST Alkaline Phosphatase CK-MB (CK-2) CK-MB (CK-2) Rel Index Albumin TSH Urine WBC (Auto) Salicylates 01/16/17 01/17/17 01/17/17 21:39 04:10 04:10 WBC 4.4 L RBC 2.98 L Hgb 7.7 L Hct 23.3 L MCV 78 L MCH 26 L RDW 18.1 H Plt Count Lymph % (Auto) [place] % (Auto) Eos % (Auto) Seg Neutrophils % Seg Neuts % (Manual) Lymphocytes % (Manual) Seg Neutrophils # Seg Neutrophils # Man Lymphocytes # (Manual) APTT POC ABG pH ABG pH POC ABG pCO2 POC ABG pO2 ABG pO2 ABG HCO3 ABG Base Excess ABG Hemoglobin VBG pH Oxyhemoglobin Sodium Potassium 3.3 L Chloride 108.7 H Carbon Dioxide 20 L BUN 8 L Creatinine Glucose 202 H POC Glucose 258 H Lactic Acid Calcium 7.6 L AST Alkaline Phosphatase CK-MB (CK-2) CK-MB (CK-2) Rel Index Albumin TSH Urine WBC (Auto) Salicylates 01/17/17 01/17/17 01/17/17 04:35 12:23 16:01 WBC RBC Hgb Hct MCV MCH RDW Plt Count Lymph % (Auto) [place] % (Auto) Eos % (Auto) Seg Neutrophils % Seg Neuts % (Manual) Lymphocytes % (Manual) Seg Neutrophils # Seg Neutrophils # Man Lymphocytes # (Manual) APTT POC ABG pH ABG pH POC ABG pCO2 POC ABG pO2 ABG pO2 160.3 H ABG HCO3 ABG Base Excess -2.3 L ABG Hemoglobin 7.9 L VBG pH Oxyhemoglobin Sodium Potassium Chloride Carbon Dioxide BUN Creatinine Glucose POC Glucose 321 H 239 H Lactic Acid Calcium AST Alkaline Phosphatase CK-MB (CK-2) CK-MB (CK-2) Rel Index Albumin TSH Urine WBC (Auto) Salicylates 01/18/17 01/18/17 01/18/17 05:07 12:09 17:54 WBC RBC Hgb Hct MCV MCH RDW Plt Count Lymph % (Auto) [place] % (Auto) Eos % (Auto) Seg Neutrophils % Seg Neuts % (Manual) Lymphocytes % (Manual) Seg Neutrophils # Seg Neutrophils # Man Lymphocytes # (Manual) APTT POC ABG pH ABG pH POC ABG pCO2 POC ABG pO2 ABG pO2 ABG HCO3 ABG Base Excess ABG Hemoglobin VBG pH Oxyhemoglobin Sodium Potassium Chloride Carbon Dioxide BUN Creatinine Glucose POC Glucose 155 H 203 H 132 H Lactic Acid Calcium AST Alkaline Phosphatase CK-MB (CK-2) CK-MB (CK-2) Rel Index Albumin TSH Urine WBC (Auto) Salicylates 01/18/17 01/19/17 01/19/17 23:43 04:28 12:11 WBC RBC Hgb Hct MCV MCH RDW Plt Count Lymph % (Auto) [place] % (Auto) Eos % (Auto) Seg Neutrophils % Seg Neuts % (Manual) Lymphocytes % (Manual) Seg Neutrophils # Seg Neutrophils # Man Lymphocytes # (Manual) APTT POC ABG pH ABG pH POC ABG pCO2 POC ABG pO2 ABG pO2 ABG HCO3 ABG Base Excess ABG Hemoglobin VBG pH Oxyhemoglobin Sodium Potassium Chloride Carbon Dioxide BUN Creatinine Glucose POC Glucose 125 H 182 H 153 H Lactic Acid Calcium AST Alkaline Phosphatase CK-MB (CK-2) CK-MB (CK-2) Rel Index Albumin TSH Urine WBC (Auto) Salicylates 01/19/17 01/20/17 01/20/17 17:23 00:12 05:44 WBC RBC Hgb Hct MCV MCH RDW Plt Count Lymph % (Auto) [place] % (Auto) Eos % (Auto) Seg Neutrophils % Seg Neuts % (Manual) Lymphocytes % (Manual) Seg Neutrophils # Seg Neutrophils # Man Lymphocytes # (Manual) APTT POC ABG pH ABG pH POC ABG pCO2 POC ABG pO2 ABG pO2 ABG HCO3 ABG Base Excess ABG Hemoglobin VBG pH Oxyhemoglobin Sodium Potassium Chloride Carbon Dioxide BUN Creatinine Glucose POC Glucose 66 L 139 H 176 H Lactic Acid Calcium AST Alkaline Phosphatase CK-MB (CK-2) CK-MB (CK-2) Rel Index Albumin TSH Urine WBC (Auto) Salicylates 01/20/17 01/20/17 01/20/17 11:48 17:42 23:43 WBC RBC Hgb Hct MCV MCH RDW Plt Count Lymph % (Auto) [place] % (Auto) Eos % (Auto) Seg Neutrophils % Seg Neuts % (Manual) Lymphocytes % (Manual) Seg Neutrophils # Seg Neutrophils # Man Lymphocytes # (Manual) APTT POC ABG pH ABG pH POC ABG pCO2 POC ABG pO2 ABG pO2 ABG HCO3 ABG Base Excess ABG Hemoglobin VBG pH Oxyhemoglobin Sodium Potassium Chloride Carbon Dioxide BUN Creatinine Glucose POC Glucose 218 H 132 H 178 H Lactic Acid Calcium AST Alkaline Phosphatase CK-MB (CK-2) CK-MB (CK-2) Rel Index Albumin TSH Urine WBC (Auto) Salicylates 01/21/17 01/21/17 01/21/17 05:34 11:17 23:37 WBC RBC Hgb Hct MCV MCH RDW Plt Count Lymph % (Auto) [place] % (Auto) Eos % (Auto) Seg Neutrophils % Seg Neuts % (Manual) Lymphocytes % (Manual) Seg Neutrophils # Seg Neutrophils # Man Lymphocytes # (Manual) APTT POC ABG pH ABG pH POC ABG pCO2 POC ABG pO2 ABG pO2 ABG HCO3 ABG Base Excess ABG Hemoglobin VBG pH Oxyhemoglobin Sodium Potassium Chloride Carbon Dioxide BUN Creatinine Glucose POC Glucose 106 H 213 H 140 H Lactic Acid Calcium AST Alkaline Phosphatase CK-MB (CK-2) CK-MB (CK-2) Rel Index Albumin TSH Urine WBC (Auto) Salicylates 01/22/17 01/22/17 01/22/17 04:00 04:00 04:58 WBC RBC 3.26 L Hgb 8.3 L Hct 25.5 L MCV 78 L MCH 25 L RDW 17.9 H Plt Count Lymph % (Auto) [place] % (Auto) 7.9 H Eos % (Auto) 6.2 H Seg Neutrophils % Seg Neuts % (Manual) Lymphocytes % (Manual) Seg Neutrophils # Seg Neutrophils # Man Lymphocytes # (Manual) APTT POC ABG pH ABG pH POC ABG pCO2 POC ABG pO2 ABG pO2 ABG HCO3 ABG Base Excess ABG Hemoglobin VBG pH Oxyhemoglobin Sodium Potassium Chloride 95.5 L Carbon Dioxide 31 H D BUN Creatinine Glucose 134 H POC Glucose 146 H Lactic Acid Calcium AST 44 H Alkaline Phosphatase 379 H CK-MB (CK-2) CK-MB (CK-2) Rel Index Albumin 2.7 L TSH Urine WBC (Auto) Salicylates 1001/22/17 01/22/17 12:12 18:12 23:39 WBC RBC Hgb Hct MCV MCH RDW Plt Count Lymph % (Auto) [place] % (Auto) Eos % (Auto) Seg Neutrophils % Seg Neuts % (Manual) Lymphocytes % (Manual) Seg Neutrophils # Seg Neutrophils # Man Lymphocytes # (Manual) APTT POC ABG pH ABG pH POC ABG pCO2 POC ABG pO2 ABG pO2 ABG HCO3 ABG Base Excess ABG Hemoglobin VBG pH Oxyhemoglobin Sodium Potassium Chloride Carbon Dioxide BUN Creatinine Glucose POC Glucose 255 H 182 H 134 H Lactic Acid Calcium AST Alkaline Phosphatase CK-MB (CK-2) CK-MB (CK-2) Rel Index Albumin TSH Urine WBC (Auto) Salicylates 01/23/17 01/23/17 01/23/17 04:43 12:12 17:36 WBC RBC Hgb Hct MCV MCH RDW Plt Count Lymph % (Auto) [place] % (Auto) Eos % (Auto) Seg Neutrophils % Seg Neuts % (Manual) Lymphocytes % (Manual) Seg Neutrophils # Seg Neutrophils # Man Lymphocytes # (Manual) APTT POC ABG pH ABG pH POC ABG pCO2 POC ABG pO2 ABG pO2 ABG HCO3 ABG Base Excess ABG Hemoglobin VBG pH Oxyhemoglobin Sodium Potassium Chloride Carbon Dioxide BUN Creatinine Glucose POC Glucose 218 H 128 H 156 H Lactic Acid Calcium AST Alkaline Phosphatase CK-MB (CK-2) CK-MB (CK-2) Rel Index Albumin TSH Urine WBC (Auto) Salicylates 01/24/17 01/24/17 01/24/17 00:08 05:16 11:40 WBC RBC Hgb Hct MCV MCH RDW Plt Count Lymph % (Auto) [place] % (Auto) Eos % (Auto) Seg Neutrophils % Seg Neuts % (Manual) Lymphocytes % (Manual) Seg Neutrophils # Seg Neutrophils # Man Lymphocytes # (Manual) APTT POC ABG pH ABG pH POC ABG pCO2 POC ABG pO2 ABG pO2 ABG HCO3 ABG Base Excess ABG Hemoglobin VBG pH Oxyhemoglobin Sodium Potassium Chloride Carbon Dioxide BUN Creatinine Glucose POC Glucose 129 H 169 H 187 H Lactic Acid Calcium AST Alkaline Phosphatase CK-MB (CK-2) CK-MB (CK-2) Rel Index Albumin TSH Urine WBC (Auto) Salicylates 01/24/17 01/24/17 01/25/17 17:43 23:23 04:56 WBC RBC Hgb Hct MCV MCH RDW Plt Count Lymph % (Auto) [place] % (Auto) Eos % (Auto) Seg Neutrophils % Seg Neuts % (Manual) Lymphocytes % (Manual) Seg Neutrophils # Seg Neutrophils # Man Lymphocytes # (Manual) APTT POC ABG pH ABG pH POC ABG pCO2 POC ABG pO2 ABG pO2 ABG HCO3 ABG Base Excess ABG Hemoglobin VBG pH Oxyhemoglobin Sodium Potassium Chloride Carbon Dioxide BUN Creatinine Glucose POC Glucose 215 H 222 H 210 H Lactic Acid Calcium AST Alkaline Phosphatase CK-MB (CK-2) CK-MB (CK-2) Rel Index Albumin TSH Urine WBC (Auto) Salicylates 01/25/17 01/25/17 01/26/17 11:52 17:37 00:02 WBC RBC Hgb Hct MCV MCH RDW Plt Count Lymph % (Auto) [place] % (Auto) Eos % (Auto) Seg Neutrophils % Seg Neuts % (Manual) Lymphocytes % (Manual) Seg Neutrophils # Seg Neutrophils # Man Lymphocytes # (Manual) APTT POC ABG pH ABG pH POC ABG pCO2 POC ABG pO2 ABG pO2 ABG HCO3 ABG Base Excess ABG Hemoglobin VBG pH Oxyhemoglobin Sodium Potassium Chloride Carbon Dioxide BUN Creatinine Glucose POC Glucose 284 H 218 H 192 H Lactic Acid Calcium AST Alkaline Phosphatase CK-MB (CK-2) CK-MB (CK-2) Rel Index Albumin TSH Urine WBC (Auto) Salicylates 01/26/17 01/26/17 01/26/17 05:33 12:17 17:50 WBC RBC Hgb Hct MCV MCH RDW Plt Count Lymph % (Auto) [place] % (Auto) Eos % (Auto) Seg Neutrophils % Seg Neuts % (Manual) Lymphocytes % (Manual) Seg Neutrophils # Seg Neutrophils # Man Lymphocytes # (Manual) APTT POC ABG pH ABG pH POC ABG pCO2 POC ABG pO2 ABG pO2 ABG HCO3 ABG Base Excess ABG Hemoglobin VBG pH Oxyhemoglobin Sodium Potassium Chloride Carbon Dioxide BUN Creatinine Glucose POC Glucose 199 H 227 H 229 H Lactic Acid Calcium AST Alkaline Phosphatase CK-MB (CK-2) CK-MB (CK-2) Rel Index Albumin TSH Urine WBC (Auto) Salicylates 01/26/17 01/27/17 01/27/17 23:57 05:31 11:42 WBC RBC Hgb Hct MCV MCH RDW Plt Count Lymph % (Auto) [place] % (Auto) Eos % (Auto) Seg Neutrophils % Seg Neuts % (Manual) Lymphocytes % (Manual) Seg Neutrophils # Seg Neutrophils # Man Lymphocytes # (Manual) APTT POC ABG pH ABG pH POC ABG pCO2 POC ABG pO2 ABG pO2 ABG HCO3 ABG Base Excess ABG Hemoglobin VBG pH Oxyhemoglobin Sodium Potassium Chloride Carbon Dioxide BUN Creatinine Glucose POC Glucose 186 H 285 H 260 H Lactic Acid Calcium AST Alkaline Phosphatase CK-MB (CK-2) CK-MB (CK-2) Rel Index Albumin TSH Urine WBC (Auto) Salicylates 01/27/17 01/27/17 01/27/17 17:47 23:58 Unknown WBC 12.1 H RBC 3.28 L Hgb 8.5 L Hct 25.5 L MCV 78 L MCH 26 L RDW 16.8 H Plt Count 601 H Lymph % (Auto) [place] % (Auto) Eos % (Auto) Seg Neutrophils % Seg Neuts % (Manual) Lymphocytes % (Manual) Seg Neutrophils # Seg Neutrophils # Man Lymphocytes # (Manual) APTT POC ABG pH ABG pH POC ABG pCO2 POC ABG pO2 ABG pO2 ABG HCO3 ABG Base Excess ABG Hemoglobin VBG pH Oxyhemoglobin Sodium Potassium Chloride Carbon Dioxide BUN Creatinine Glucose POC Glucose 329 H 225 H Lactic Acid Calcium AST Alkaline Phosphatase CK-MB (CK-2) CK-MB (CK-2) Rel Index Albumin TSH Urine WBC (Auto) Salicylates 01/27/17 01/28/17 01/28/17 Unknown 03:44 03:44 WBC RBC 3.14 L Hgb 8.2 L Hct 24.1 L MCV 77 L MCH 26 L RDW 16.9 H Plt Count 567 H Lymph % (Auto) [place] % (Auto) Eos % (Auto) Seg Neutrophils % Seg Neuts % (Manual) Lymphocytes % (Manual) Seg Neutrophils # Seg Neutrophils # Man Lymphocytes # (Manual) APTT POC ABG pH ABG pH POC ABG pCO2 POC ABG pO2 ABG pO2 ABG HCO3 ABG Base Excess ABG Hemoglobin VBG pH Oxyhemoglobin Sodium 128 L Potassium 5.4 H Chloride 87.5 L Carbon Dioxide BUN 44 H 42 H Creatinine Glucose 250 H 128 H POC Glucose Lactic Acid Calcium AST Alkaline Phosphatase CK-MB (CK-2) CK-MB (CK-2) Rel Index Albumin TSH Urine WBC (Auto) Salicylates 01/28/17 01/28/17 01/28/17 11:43 16:47 17:52 WBC RBC Hgb Hct MCV MCH RDW Plt Count Lymph % (Auto) [place] % (Auto) Eos % (Auto) Seg Neutrophils % Seg Neuts % (Manual) Lymphocytes % (Manual) Seg Neutrophils # Seg Neutrophils # Man Lymphocytes # (Manual) APTT POC ABG pH ABG pH POC ABG pCO2 POC ABG pO2 ABG pO2 ABG HCO3 ABG Base Excess ABG Hemoglobin VBG pH Oxyhemoglobin Sodium Potassium Chloride Carbon Dioxide BUN Creatinine Glucose POC Glucose 351 H 249 H Lactic Acid Calcium AST Alkaline Phosphatase CK-MB (CK-2) CK-MB (CK-2) Rel Index Albumin TSH Urine WBC (Auto) > 182.0 H Salicylates 01/29/17 01/29/17 01/29/17 05:25 05:25 09:32 WBC 13.6 H RBC 3.25 L Hgb 8.3 L Hct 25.1 L MCV 77 L MCH 26 L RDW 16.8 H Plt Count 514 H Lymph % (Auto) [place] % (Auto) Eos % (Auto) Seg Neutrophils % Seg Neuts % (Manual) Lymphocytes % (Manual) Seg Neutrophils # Seg Neutrophils # Man Lymphocytes # (Manual) APTT POC ABG pH ABG pH POC ABG pCO2 POC ABG pO2 ABG pO2 ABG HCO3 ABG Base Excess ABG Hemoglobin VBG pH Oxyhemoglobin Sodium Potassium Chloride 97.8 L Carbon Dioxide BUN 34 H Creatinine Glucose 222 H POC Glucose Lactic Acid 2.50 H* Calcium AST Alkaline Phosphatase CK-MB (CK-2) CK-MB (CK-2) Rel Index Albumin TSH Urine WBC (Auto) Salicylates 01/29/17 01/29/17 01/29/17 11:56 18:11 23:55 WBC RBC Hgb Hct MCV MCH RDW Plt Count Lymph % (Auto) [place] % (Auto) Eos % (Auto) Seg Neutrophils % Seg Neuts % (Manual) Lymphocytes % (Manual) Seg Neutrophils # Seg Neutrophils # Man Lymphocytes # (Manual) APTT POC ABG pH ABG pH POC ABG pCO2 POC ABG pO2 ABG pO2 ABG HCO3 ABG Base Excess ABG Hemoglobin VBG pH Oxyhemoglobin Sodium Potassium Chloride Carbon Dioxide BUN Creatinine Glucose POC Glucose 261 H 215 H 176 H Lactic Acid Calcium AST Alkaline Phosphatase CK-MB (CK-2) CK-MB (CK-2) Rel Index Albumin TSH Urine WBC (Auto) Salicylates 01/30/17 01/30/17 01/30/17 05:31 05:31 05:34 WBC 15.2 H RBC 3.09 L Hgb 7.9 L Hct 23.9 L MCV 77 L MCH 26 L RDW 16.9 H Plt Count 569 H Lymph % (Auto) [place] % (Auto) Eos % (Auto) Seg Neutrophils % Seg Neuts % (Manual) Lymphocytes % (Manual) Seg Neutrophils # Seg Neutrophils # Man Lymphocytes # (Manual) APTT POC ABG pH ABG pH POC ABG pCO2 POC ABG pO2 ABG pO2 ABG HCO3 ABG Base Excess ABG Hemoglobin VBG pH Oxyhemoglobin Sodium Potassium Chloride Carbon Dioxide BUN 24 H Creatinine Glucose 235 H POC Glucose 243 H Lactic Acid Calcium AST Alkaline Phosphatase CK-MB (CK-2) CK-MB (CK-2) Rel Index Albumin TSH Urine WBC (Auto) Salicylates 01/30/17 01/30/17 01/30/17 11:38 17:58 23:29 WBC RBC Hgb Hct MCV MCH RDW Plt Count Lymph % (Auto) [place] % (Auto) Eos % (Auto) Seg Neutrophils % Seg Neuts % (Manual) Lymphocytes % (Manual) Seg Neutrophils # Seg Neutrophils # Man Lymphocytes # (Manual) APTT POC ABG pH ABG pH POC ABG pCO2 POC ABG pO2 ABG pO2 ABG HCO3 ABG Base Excess ABG Hemoglobin VBG pH Oxyhemoglobin Sodium Potassium Chloride Carbon Dioxide BUN Creatinine Glucose POC Glucose 298 H 208 H 245 H Lactic Acid Calcium AST Alkaline Phosphatase CK-MB (CK-2) CK-MB (CK-2) Rel Index Albumin TSH Urine WBC (Auto) Salicylates 01/31/17 01/31/17 01/31/17 04:39 04:39 05:57 WBC 11.4 H RBC 3.22 L Hgb 8.2 L Hct 24.9 L MCV 78 L MCH 25 L RDW 17.2 H Plt Count 576 H Lymph % (Auto) [place] % (Auto) Eos % (Auto) Seg Neutrophils % Seg Neuts % (Manual) Lymphocytes % (Manual) Seg Neutrophils # Seg Neutrophils # Man Lymphocytes # (Manual) APTT POC ABG pH ABG pH POC ABG pCO2 POC ABG pO2 ABG pO2 ABG HCO3 ABG Base Excess ABG Hemoglobin VBG pH Oxyhemoglobin Sodium Potassium Chloride Carbon Dioxide BUN Creatinine 0.7 L Glucose 223 H POC Glucose 264 H Lactic Acid Calcium AST Alkaline Phosphatase CK-MB (CK-2) CK-MB (CK-2) Rel Index Albumin TSH Urine WBC (Auto) Salicylates 01/31/17 01/31/17 01/31/17 12:23 17:41 18:55 WBC RBC Hgb Hct MCV MCH RDW Plt Count Lymph % (Auto) [place] % (Auto) Eos % (Auto) Seg Neutrophils % Seg Neuts % (Manual) Lymphocytes % (Manual) Seg Neutrophils # Seg Neutrophils # Man Lymphocytes # (Manual) APTT POC ABG pH ABG pH POC ABG pCO2 32.8 L POC ABG pO2 ABG pO2 ABG HCO3 ABG Base Excess ABG Hemoglobin VBG pH Oxyhemoglobin Sodium Potassium Chloride Carbon Dioxide BUN Creatinine Glucose POC Glucose 252 H 208 H Lactic Acid Calcium AST Alkaline Phosphatase CK-MB (CK-2) CK-MB (CK-2) Rel Index Albumin TSH Urine WBC (Auto) Salicylates 01/31/17 02/01/17 02/01/17 22:59 03:38 03:38 WBC RBC 2.81 L Hgb 7.4 L Hct 22.1 L MCV 79 L MCH 27 L RDW 17.0 H Plt Count 540 H Lymph % (Auto) [place] % (Auto) Eos % (Auto) Seg Neutrophils % Seg Neuts % (Manual) Lymphocytes % (Manual) Seg Neutrophils # Seg Neutrophils # Man Lymphocytes # (Manual) APTT POC ABG pH ABG pH POC ABG pCO2 POC ABG pO2 ABG pO2 ABG HCO3 ABG Base Excess ABG Hemoglobin VBG pH Oxyhemoglobin Sodium Potassium Chloride Carbon Dioxide 21 L BUN Creatinine 0.7 L Glucose POC Glucose 40 L Lactic Acid Calcium AST Alkaline Phosphatase CK-MB (CK-2) CK-MB (CK-2) Rel Index Albumin TSH Urine WBC (Auto) Salicylates 02/01/17 02/01/17 02/01/17 05:17 12:19 16:44 WBC RBC Hgb Hct MCV MCH RDW Plt Count Lymph % (Auto) [place] % (Auto) Eos % (Auto) Seg Neutrophils % Seg Neuts % (Manual) Lymphocytes % (Manual) Seg Neutrophils # Seg Neutrophils # Man Lymphocytes # (Manual) APTT POC ABG pH ABG pH POC ABG pCO2 POC ABG pO2 ABG pO2 ABG HCO3 ABG Base Excess ABG Hemoglobin VBG pH Oxyhemoglobin Sodium Potassium Chloride Carbon Dioxide BUN Creatinine Glucose POC Glucose 140 H 213 H 172 H Lactic Acid Calcium AST Alkaline Phosphatase CK-MB (CK-2) CK-MB (CK-2) Rel Index Albumin TSH Urine WBC (Auto) Salicylates 02/01/17 02/02/17 02/02/17 23:59 05:14 11:24 WBC RBC Hgb Hct MCV MCH RDW Plt Count Lymph % (Auto) [place] % (Auto) Eos % (Auto) Seg Neutrophils % Seg Neuts % (Manual) Lymphocytes % (Manual) Seg Neutrophils # Seg Neutrophils # Man Lymphocytes # (Manual) APTT POC ABG pH ABG pH POC ABG pCO2 POC ABG pO2 ABG pO2 ABG HCO3 ABG Base Excess ABG Hemoglobin VBG pH Oxyhemoglobin Sodium Potassium Chloride Carbon Dioxide BUN Creatinine Glucose POC Glucose 181 H 194 H 209 H Lactic Acid Calcium AST Alkaline Phosphatase CK-MB (CK-2) CK-MB (CK-2) Rel Index Albumin TSH Urine WBC (Auto) Salicylates 02/02/17 02/02/17 02/02/17 11:46 11:46 17:47 WBC RBC 2.94 L Hgb 7.5 L Hct 23.0 L MCV 78 L MCH 25 L RDW 16.9 H Plt Count 520 H Lymph % (Auto) [place] % (Auto) Eos % (Auto) Seg Neutrophils % Seg Neuts % (Manual) Lymphocytes % (Manual) Seg Neutrophils # Seg Neutrophils # Man Lymphocytes # (Manual) APTT POC ABG pH ABG pH POC ABG pCO2 POC ABG pO2 ABG pO2 ABG HCO3 ABG Base Excess ABG Hemoglobin VBG pH Oxyhemoglobin Sodium Potassium Chloride Carbon Dioxide BUN Creatinine 0.6 L Glucose 189 H POC Glucose 147 H Lactic Acid Calcium 8.1 L AST Alkaline Phosphatase CK-MB (CK-2) CK-MB (CK-2) Rel Index Albumin TSH Urine WBC (Auto) Salicylates 02/02/17 02/03/17 02/03/17 23:32 05:53 11:19 WBC RBC Hgb Hct MCV MCH RDW Plt Count Lymph % (Auto) [place] % (Auto) Eos % (Auto) Seg Neutrophils % Seg Neuts % (Manual) Lymphocytes % (Manual) Seg Neutrophils # Seg Neutrophils # Man Lymphocytes # (Manual) APTT POC ABG pH ABG pH POC ABG pCO2 POC ABG pO2 ABG pO2 ABG HCO3 ABG Base Excess ABG Hemoglobin VBG pH Oxyhemoglobin Sodium Potassium Chloride Carbon Dioxide BUN Creatinine Glucose POC Glucose 176 H 224 H 228 H Lactic Acid Calcium AST Alkaline Phosphatase CK-MB (CK-2) CK-MB (CK-2) Rel Index Albumin TSH Urine WBC (Auto) Salicylates 02/03/17 02/03/17 02/04/17 16:59 23:38 05:45 WBC RBC Hgb Hct MCV MCH RDW Plt Count Lymph % (Auto) [place] % (Auto) Eos % (Auto) Seg Neutrophils % Seg Neuts % (Manual) Lymphocytes % (Manual) Seg Neutrophils # Seg Neutrophils # Man Lymphocytes # (Manual) APTT POC ABG pH ABG pH POC ABG pCO2 POC ABG pO2 ABG pO2 ABG HCO3 ABG Base Excess ABG Hemoglobin VBG pH Oxyhemoglobin Sodium Potassium Chloride Carbon Dioxide BUN Creatinine Glucose POC Glucose 189 H 191 H 251 H Lactic Acid Calcium AST Alkaline Phosphatase CK-MB (CK-2) CK-MB (CK-2) Rel Index Albumin TSH Urine WBC (Auto) Salicylates 02/04/17 02/04/17 02/05/17 11:20 17:20 00:17 WBC RBC Hgb Hct MCV MCH RDW Plt Count Lymph % (Auto) [place] % (Auto) Eos % (Auto) Seg Neutrophils % Seg Neuts % (Manual) Lymphocytes % (Manual) Seg Neutrophils # Seg Neutrophils # Man Lymphocytes # (Manual) APTT POC ABG pH ABG pH POC ABG pCO2 POC ABG pO2 ABG pO2 ABG HCO3 ABG Base Excess ABG Hemoglobin VBG pH Oxyhemoglobin Sodium Potassium Chloride Carbon Dioxide BUN Creatinine Glucose POC Glucose 243 H 163 H 200 H Lactic Acid Calcium AST Alkaline Phosphatase CK-MB (CK-2) CK-MB (CK-2) Rel Index Albumin TSH Urine WBC (Auto) Salicylates 02/05/17 02/05/17 02/05/17 05:38 12:38 16:29 WBC RBC Hgb Hct MCV MCH RDW Plt Count Lymph % (Auto) [place] % (Auto) Eos % (Auto) Seg Neutrophils % Seg Neuts % (Manual) Lymphocytes % (Manual) Seg Neutrophils # Seg Neutrophils # Man Lymphocytes # (Manual) APTT POC ABG pH ABG pH POC ABG pCO2 POC ABG pO2 ABG pO2 ABG HCO3 ABG Base Excess ABG Hemoglobin VBG pH Oxyhemoglobin Sodium Potassium Chloride Carbon Dioxide BUN Creatinine Glucose POC Glucose 248 H 241 H 257 H Lactic Acid Calcium AST Alkaline Phosphatase CK-MB (CK-2) CK-MB (CK-2) Rel Index Albumin TSH Urine WBC (Auto) Salicylates 02/05/17 02/06/17 02/06/17 23:56 05:30 11:50 WBC RBC Hgb Hct MCV MCH RDW Plt Count Lymph % (Auto) [place] % (Auto) Eos % (Auto) Seg Neutrophils % Seg Neuts % (Manual) Lymphocytes % (Manual) Seg Neutrophils # Seg Neutrophils # Man Lymphocytes # (Manual) APTT POC ABG pH ABG pH POC ABG pCO2 POC ABG pO2 ABG pO2 ABG HCO3 ABG Base Excess ABG Hemoglobin VBG pH Oxyhemoglobin Sodium Potassium Chloride Carbon Dioxide BUN Creatinine Glucose POC Glucose 258 H 120 H 254 H Lactic Acid Calcium AST Alkaline Phosphatase CK-MB (CK-2) CK-MB (CK-2) Rel Index Albumin TSH Urine WBC (Auto) Salicylates 02/06/17 02/06/17 02/07/17 17:11 23:50 05:22 WBC RBC Hgb Hct MCV MCH RDW Plt Count Lymph % (Auto) [place] % (Auto) Eos % (Auto) Seg Neutrophils % Seg Neuts % (Manual) Lymphocytes % (Manual) Seg Neutrophils # Seg Neutrophils # Man Lymphocytes # (Manual) APTT POC ABG pH ABG pH POC ABG pCO2 POC ABG pO2 ABG pO2 ABG HCO3 ABG Base Excess ABG Hemoglobin VBG pH Oxyhemoglobin Sodium Potassium Chloride Carbon Dioxide BUN Creatinine Glucose POC Glucose 149 H 240 H 258 H Lactic Acid Calcium AST Alkaline Phosphatase CK-MB (CK-2) CK-MB (CK-2) Rel Index Albumin TSH Urine WBC (Auto) Salicylates 02/07/17 02/07/17 02/07/17 11:15 18:33 23:59 WBC RBC Hgb Hct MCV MCH RDW Plt Count Lymph % (Auto) [place] % (Auto) Eos % (Auto) Seg Neutrophils % Seg Neuts % (Manual) Lymphocytes % (Manual) Seg Neutrophils # Seg Neutrophils # Man Lymphocytes # (Manual) APTT POC ABG pH ABG pH POC ABG pCO2 POC ABG pO2 ABG pO2 ABG HCO3 ABG Base Excess ABG Hemoglobin VBG pH Oxyhemoglobin Sodium Potassium Chloride Carbon Dioxide BUN Creatinine Glucose POC Glucose 239 H 176 H 186 H Lactic Acid Calcium AST Alkaline Phosphatase CK-MB (CK-2) CK-MB (CK-2) Rel Index Albumin TSH Urine WBC (Auto) Salicylates 02/08/17 02/08/17 02/08/17 06:15 11:55 16:55 WBC RBC Hgb Hct MCV MCH RDW Plt Count Lymph % (Auto) [place] % (Auto) Eos % (Auto) Seg Neutrophils % Seg Neuts % (Manual) Lymphocytes % (Manual) Seg Neutrophils # Seg Neutrophils # Man Lymphocytes # (Manual) APTT POC ABG pH ABG pH POC ABG pCO2 POC ABG pO2 ABG pO2 ABG HCO3 ABG Base Excess ABG Hemoglobin VBG pH Oxyhemoglobin Sodium Potassium Chloride Carbon Dioxide BUN Creatinine Glucose POC Glucose 195 H 129 H 246 H Lactic Acid Calcium AST Alkaline Phosphatase CK-MB (CK-2) CK-MB (CK-2) Rel Index Albumin TSH Urine WBC (Auto) Salicylates 02/08/17 02/09/17 02/09/17 23:51 05:51 07:24 WBC 14.7 H RBC 3.39 L Hgb 8.9 L Hct 26.4 L MCV 78 L MCH 26 L RDW 18.4 H Plt Count 670 H Lymph % (Auto) 11.8 L [place] % (Auto) Eos % (Auto) Seg Neutrophils % 81.2 H Seg Neuts % (Manual) Lymphocytes % (Manual) Seg Neutrophils # 11.9 H Seg Neutrophils # Man Lymphocytes # (Manual) APTT POC ABG pH ABG pH POC ABG pCO2 POC ABG pO2 ABG pO2 ABG HCO3 ABG Base Excess ABG Hemoglobin VBG pH Oxyhemoglobin Sodium Potassium Chloride Carbon Dioxide BUN Creatinine Glucose POC Glucose 262 H 295 H Lactic Acid Calcium AST Alkaline Phosphatase CK-MB (CK-2) CK-MB (CK-2) Rel Index Albumin TSH Urine WBC (Auto) Salicylates 02/09/17 02/09/17 02/09/17 07:24 12:08 18:39 WBC RBC Hgb Hct MCV MCH RDW Plt Count Lymph % (Auto) [place] % (Auto) Eos % (Auto) Seg Neutrophils % Seg Neuts % (Manual) Lymphocytes % (Manual) Seg Neutrophils # Seg Neutrophils # Man Lymphocytes # (Manual) APTT POC ABG pH ABG pH POC ABG pCO2 POC ABG pO2 ABG pO2 ABG HCO3 ABG Base Excess ABG Hemoglobin VBG pH Oxyhemoglobin Sodium Potassium Chloride 95.5 L Carbon Dioxide BUN 52 H Creatinine Glucose 277 H POC Glucose 236 H 151 H Lactic Acid Calcium AST Alkaline Phosphatase CK-MB (CK-2) CK-MB (CK-2) Rel Index Albumin TSH Urine WBC (Auto) Salicylates 02/10/17 02/10/17 02/10/17 00:01 05:44 11:21 WBC RBC Hgb Hct MCV MCH RDW Plt Count Lymph % (Auto) [place] % (Auto) Eos % (Auto) Seg Neutrophils % Seg Neuts % (Manual) Lymphocytes % (Manual) Seg Neutrophils # Seg Neutrophils # Man Lymphocytes # (Manual) APTT POC ABG pH ABG pH POC ABG pCO2 POC ABG pO2 ABG pO2 ABG HCO3 ABG Base Excess ABG Hemoglobin VBG pH Oxyhemoglobin Sodium Potassium Chloride Carbon Dioxide BUN Creatinine Glucose POC Glucose 210 H 201 H 233 H Lactic Acid Calcium AST Alkaline Phosphatase CK-MB (CK-2) CK-MB (CK-2) Rel Index Albumin TSH Urine WBC (Auto) Salicylates 02/10/17 02/10/17 02/11/17 17:29 23:56 05:24 WBC RBC Hgb Hct MCV MCH RDW Plt Count Lymph % (Auto) [place] % (Auto) Eos % (Auto) Seg Neutrophils % Seg Neuts % (Manual) Lymphocytes % (Manual) Seg Neutrophils # Seg Neutrophils # Man Lymphocytes # (Manual) APTT POC ABG pH ABG pH POC ABG pCO2 POC ABG pO2 ABG pO2 ABG HCO3 ABG Base Excess ABG Hemoglobin VBG pH Oxyhemoglobin Sodium Potassium Chloride Carbon Dioxide BUN Creatinine Glucose POC Glucose 167 H 191 H 135 H Lactic Acid Calcium AST Alkaline Phosphatase CK-MB (CK-2) CK-MB (CK-2) Rel Index Albumin TSH Urine WBC (Auto) Salicylates 02/11/17 02/11/17 02/11/17 12:25 17:03 23:59 WBC RBC Hgb Hct MCV MCH RDW Plt Count Lymph % (Auto) [place] % (Auto) Eos % (Auto) Seg Neutrophils % Seg Neuts % (Manual) Lymphocytes % (Manual) Seg Neutrophils # Seg Neutrophils # Man Lymphocytes # (Manual) APTT POC ABG pH ABG pH POC ABG pCO2 POC ABG pO2 ABG pO2 ABG HCO3 ABG Base Excess ABG Hemoglobin VBG pH Oxyhemoglobin Sodium Potassium Chloride Carbon Dioxide BUN Creatinine Glucose POC Glucose 275 H 172 H 215 H Lactic Acid Calcium AST Alkaline Phosphatase CK-MB (CK-2) CK-MB (CK-2) Rel Index Albumin TSH Urine WBC (Auto) Salicylates 02/12/17 02/12/17 02/12/17 05:39 11:33 17:55 WBC RBC Hgb Hct MCV MCH RDW Plt Count Lymph % (Auto) [place] % (Auto) Eos % (Auto) Seg Neutrophils % Seg Neuts % (Manual) Lymphocytes % (Manual) Seg Neutrophils # Seg Neutrophils # Man Lymphocytes # (Manual) APTT POC ABG pH ABG pH POC ABG pCO2 POC ABG pO2 ABG pO2 ABG HCO3 ABG Base Excess ABG Hemoglobin VBG pH Oxyhemoglobin Sodium Potassium Chloride Carbon Dioxide BUN Creatinine Glucose POC Glucose 261 H 217 H 172 H Lactic Acid Calcium AST Alkaline Phosphatase CK-MB (CK-2) CK-MB (CK-2) Rel Index Albumin TSH Urine WBC (Auto) Salicylates 02/13/17 02/13/17 02/13/17 00:25 06:46 11:26 WBC RBC Hgb Hct MCV MCH RDW Plt Count Lymph % (Auto) [place] % (Auto) Eos % (Auto) Seg Neutrophils % Seg Neuts % (Manual) Lymphocytes % (Manual) Seg Neutrophils # Seg Neutrophils # Man Lymphocytes # (Manual) APTT POC ABG pH ABG pH POC ABG pCO2 POC ABG pO2 ABG pO2 ABG HCO3 ABG Base Excess ABG Hemoglobin VBG pH Oxyhemoglobin Sodium Potassium Chloride Carbon Dioxide BUN Creatinine Glucose POC Glucose 207 H 219 H 231 H Lactic Acid Calcium AST Alkaline Phosphatase CK-MB (CK-2) CK-MB (CK-2) Rel Index Albumin TSH Urine WBC (Auto) Salicylates 02/13/17 02/13/17 02/14/17 17:12 23:44 05:44 WBC RBC Hgb Hct MCV MCH RDW Plt Count Lymph % (Auto) [place] % (Auto) Eos % (Auto) Seg Neutrophils % Seg Neuts % (Manual) Lymphocytes % (Manual) Seg Neutrophils # Seg Neutrophils # Man Lymphocytes # (Manual) APTT POC ABG pH ABG pH POC ABG pCO2 POC ABG pO2 ABG pO2 ABG HCO3 ABG Base Excess ABG Hemoglobin VBG pH Oxyhemoglobin Sodium Potassium Chloride Carbon Dioxide BUN Creatinine Glucose POC Glucose 190 H 256 H 184 H Lactic Acid Calcium AST Alkaline Phosphatase CK-MB (CK-2) CK-MB (CK-2) Rel Index Albumin TSH Urine WBC (Auto) Salicylates 02/14/17 02/14/17 02/14/17 12:21 17:57 23:18 WBC RBC Hgb Hct MCV MCH RDW Plt Count Lymph % (Auto) [place] % (Auto) Eos % (Auto) Seg Neutrophils % Seg Neuts % (Manual) Lymphocytes % (Manual) Seg Neutrophils # Seg Neutrophils # Man Lymphocytes # (Manual) APTT POC ABG pH ABG pH POC ABG pCO2 POC ABG pO2 ABG pO2 ABG HCO3 ABG Base Excess ABG Hemoglobin VBG pH Oxyhemoglobin Sodium Potassium Chloride Carbon Dioxide BUN Creatinine Glucose POC Glucose 233 H 155 H 165 H Lactic Acid Calcium AST Alkaline Phosphatase CK-MB (CK-2) CK-MB (CK-2) Rel Index Albumin TSH Urine WBC (Auto) Salicylates 02/15/17 02/15/17 02/15/17 05:33 11:45 17:20 WBC RBC Hgb Hct MCV MCH RDW Plt Count Lymph % (Auto) [place] % (Auto) Eos % (Auto) Seg Neutrophils % Seg Neuts % (Manual) Lymphocytes % (Manual) Seg Neutrophils # Seg Neutrophils # Man Lymphocytes # (Manual) APTT POC ABG pH ABG pH POC ABG pCO2 POC ABG pO2 ABG pO2 ABG HCO3 ABG Base Excess ABG Hemoglobin VBG pH Oxyhemoglobin Sodium Potassium Chloride Carbon Dioxide BUN Creatinine Glucose POC Glucose 239 H 130 H 189 H Lactic Acid Calcium AST Alkaline Phosphatase CK-MB (CK-2) CK-MB (CK-2) Rel Index Albumin TSH Urine WBC (Auto) Salicylates 02/16/17 02/16/17 02/16/17 00:14 05:09 12:31 WBC RBC Hgb Hct MCV MCH RDW Plt Count Lymph % (Auto) [place] % (Auto) Eos % (Auto) Seg Neutrophils % Seg Neuts % (Manual) Lymphocytes % (Manual) Seg Neutrophils # Seg Neutrophils # Man Lymphocytes # (Manual) APTT POC ABG pH ABG pH POC ABG pCO2 POC ABG pO2 ABG pO2 ABG HCO3 ABG Base Excess ABG Hemoglobin VBG pH Oxyhemoglobin Sodium Potassium Chloride Carbon Dioxide BUN Creatinine Glucose POC Glucose 197 H 226 H 178 H Lactic Acid Calcium AST Alkaline Phosphatase CK-MB (CK-2) CK-MB (CK-2) Rel Index Albumin TSH Urine WBC (Auto) Salicylates 02/16/17 02/16/17 02/17/17 16:35 23:49 05:37 WBC RBC Hgb Hct MCV MCH RDW Plt Count Lymph % (Auto) [place] % (Auto) Eos % (Auto) Seg Neutrophils % Seg Neuts % (Manual) Lymphocytes % (Manual) Seg Neutrophils # Seg Neutrophils # Man Lymphocytes # (Manual) APTT POC ABG pH ABG pH POC ABG pCO2 POC ABG pO2 ABG pO2 ABG HCO3 ABG Base Excess ABG Hemoglobin VBG pH Oxyhemoglobin Sodium Potassium Chloride Carbon Dioxide BUN Creatinine Glucose POC Glucose 174 H 62 L 153 H Lactic Acid Calcium AST Alkaline Phosphatase CK-MB (CK-2) CK-MB (CK-2) Rel Index Albumin TSH Urine WBC (Auto) Salicylates 02/17/17 02/17/17 02/17/17 11:39 17:02 22:24 WBC RBC Hgb Hct MCV MCH RDW Plt Count Lymph % (Auto) [place] % (Auto) Eos % (Auto) Seg Neutrophils % Seg Neuts % (Manual) Lymphocytes % (Manual) Seg Neutrophils # Seg Neutrophils # Man Lymphocytes # (Manual) APTT POC ABG pH ABG pH POC ABG pCO2 POC ABG pO2 ABG pO2 ABG HCO3 ABG Base Excess ABG Hemoglobin VBG pH Oxyhemoglobin Sodium Potassium Chloride Carbon Dioxide BUN Creatinine Glucose POC Glucose 231 H 112 H 116 H Lactic Acid Calcium AST Alkaline Phosphatase CK-MB (CK-2) CK-MB (CK-2) Rel Index Albumin TSH Urine WBC (Auto) Salicylates 02/18/17 02/19/17 02/19/17 15:34 05:09 07:57 WBC RBC Hgb Hct MCV MCH RDW Plt Count Lymph % (Auto) [place] % (Auto) Eos % (Auto) Seg Neutrophils % Seg Neuts % (Manual) Lymphocytes % (Manual) Seg Neutrophils # Seg Neutrophils # Man Lymphocytes # (Manual) APTT POC ABG pH ABG pH POC ABG pCO2 POC ABG pO2 ABG pO2 ABG HCO3 ABG Base Excess ABG Hemoglobin VBG pH Oxyhemoglobin Sodium Potassium Chloride Carbon Dioxide BUN Creatinine Glucose POC Glucose 215 H 218 H 283 H Lactic Acid Calcium AST Alkaline Phosphatase CK-MB (CK-2) CK-MB (CK-2) Rel Index Albumin TSH Urine WBC (Auto) Salicylates 02/19/17 02/19/17 02/20/17 14:49 22:10 05:10 WBC RBC Hgb Hct MCV MCH RDW Plt Count Lymph % (Auto) [place] % (Auto) Eos % (Auto) Seg Neutrophils % Seg Neuts % (Manual) Lymphocytes % (Manual) Seg Neutrophils # Seg Neutrophils # Man Lymphocytes # (Manual) APTT POC ABG pH ABG pH POC ABG pCO2 POC ABG pO2 ABG pO2 ABG HCO3 ABG Base Excess ABG Hemoglobin VBG pH Oxyhemoglobin Sodium Potassium Chloride Carbon Dioxide BUN Creatinine Glucose POC Glucose 290 H 169 H 209 H Lactic Acid Calcium AST Alkaline Phosphatase CK-MB (CK-2) CK-MB (CK-2) Rel Index Albumin TSH Urine WBC (Auto) Salicylates 02/20/17 02/20/17 02/21/17 15:05 21:52 02:00 WBC RBC Hgb Hct MCV MCH RDW Plt Count Lymph % (Auto) [place] % (Auto) Eos % (Auto) Seg Neutrophils % Seg Neuts % (Manual) Lymphocytes % (Manual) Seg Neutrophils # Seg Neutrophils # Man Lymphocytes # (Manual) APTT POC ABG pH ABG pH POC ABG pCO2 POC ABG pO2 ABG pO2 ABG HCO3 ABG Base Excess ABG Hemoglobin VBG pH Oxyhemoglobin Sodium Potassium Chloride Carbon Dioxide BUN Creatinine Glucose POC Glucose 172 H 209 H 216 H Lactic Acid Calcium AST Alkaline Phosphatase CK-MB (CK-2) CK-MB (CK-2) Rel Index Albumin TSH Urine WBC (Auto) Salicylates 02/21/17 02/21/17 02/21/17 04:54 14:43 17:47 WBC RBC Hgb Hct MCV MCH RDW Plt Count Lymph % (Auto) [place] % (Auto) Eos % (Auto) Seg Neutrophils % Seg Neuts % (Manual) Lymphocytes % (Manual) Seg Neutrophils # Seg Neutrophils # Man Lymphocytes # (Manual) APTT POC ABG pH ABG pH POC ABG pCO2 POC ABG pO2 ABG pO2 ABG HCO3 ABG Base Excess ABG Hemoglobin VBG pH Oxyhemoglobin Sodium Potassium Chloride Carbon Dioxide BUN Creatinine Glucose POC Glucose 227 H 290 H 220 H Lactic Acid Calcium AST Alkaline Phosphatase CK-MB (CK-2) CK-MB (CK-2) Rel Index Albumin TSH Urine WBC (Auto) Salicylates 02/21/17 02/22/17 02/22/17 22:02 04:52 15:25 WBC RBC Hgb Hct MCV MCH RDW Plt Count Lymph % (Auto) [place] % (Auto) Eos % (Auto) Seg Neutrophils % Seg Neuts % (Manual) Lymphocytes % (Manual) Seg Neutrophils # Seg Neutrophils # Man Lymphocytes # (Manual) APTT POC ABG pH ABG pH POC ABG pCO2 POC ABG pO2 ABG pO2 ABG HCO3 ABG Base Excess ABG Hemoglobin VBG pH Oxyhemoglobin Sodium Potassium Chloride Carbon Dioxide BUN Creatinine Glucose POC Glucose 246 H 212 H 236 H Lactic Acid Calcium AST Alkaline Phosphatase CK-MB (CK-2) CK-MB (CK-2) Rel Index Albumin TSH Urine WBC (Auto) Salicylates 02/22/17 02/23/17 02/23/17 21:33 06:04 10:00 WBC RBC Hgb Hct MCV MCH RDW Plt Count Lymph % (Auto) [place] % (Auto) Eos % (Auto) Seg Neutrophils % Seg Neuts % (Manual) Lymphocytes % (Manual) Seg Neutrophils # Seg Neutrophils # Man Lymphocytes # (Manual) APTT POC ABG pH ABG pH POC ABG pCO2 POC ABG pO2 ABG pO2 ABG HCO3 ABG Base Excess ABG Hemoglobin VBG pH Oxyhemoglobin Sodium Potassium Chloride Carbon Dioxide BUN Creatinine Glucose POC Glucose 255 H 208 H 174 H Lactic Acid Calcium AST Alkaline Phosphatase CK-MB (CK-2) CK-MB (CK-2) Rel Index Albumin TSH Urine WBC (Auto) Salicylates 02/23/17 02/23/17 02/23/17 12:52 17:15 21:51 WBC RBC Hgb Hct MCV MCH RDW Plt Count Lymph % (Auto) [place] % (Auto) Eos % (Auto) Seg Neutrophils % Seg Neuts % (Manual) Lymphocytes % (Manual) Seg Neutrophils # Seg Neutrophils # Man Lymphocytes # (Manual) APTT POC ABG pH ABG pH POC ABG pCO2 POC ABG pO2 ABG pO2 ABG HCO3 ABG Base Excess ABG Hemoglobin VBG pH Oxyhemoglobin Sodium Potassium Chloride Carbon Dioxide BUN Creatinine Glucose POC Glucose 203 H 269 H 205 H Lactic Acid Calcium AST Alkaline Phosphatase CK-MB (CK-2) CK-MB (CK-2) Rel Index Albumin TSH Urine WBC (Auto) Salicylates 02/24/17 02/24/17 02/24/17 10:23 17:45 21:24 WBC RBC Hgb Hct MCV MCH RDW Plt Count Lymph % (Auto) [place] % (Auto) Eos % (Auto) Seg Neutrophils % Seg Neuts % (Manual) Lymphocytes % (Manual) Seg Neutrophils # Seg Neutrophils # Man Lymphocytes # (Manual) APTT POC ABG pH ABG pH POC ABG pCO2 POC ABG pO2 ABG pO2 ABG HCO3 ABG Base Excess ABG Hemoglobin VBG pH Oxyhemoglobin Sodium Potassium Chloride Carbon Dioxide BUN Creatinine Glucose POC Glucose 280 H 239 H 254 H Lactic Acid Calcium AST Alkaline Phosphatase CK-MB (CK-2) CK-MB (CK-2) Rel Index Albumin TSH Urine WBC (Auto) Salicylates 02/25/17 02/25/17 02/25/17 02:12 05:17 14:32 WBC RBC Hgb Hct MCV MCH RDW Plt Count Lymph % (Auto) [place] % (Auto) Eos % (Auto) Seg Neutrophils % Seg Neuts % (Manual) Lymphocytes % (Manual) Seg Neutrophils # Seg Neutrophils # Man Lymphocytes # (Manual) APTT POC ABG pH ABG pH POC ABG pCO2 POC ABG pO2 ABG pO2 ABG HCO3 ABG Base Excess ABG Hemoglobin VBG pH Oxyhemoglobin Sodium Potassium Chloride Carbon Dioxide BUN Creatinine Glucose POC Glucose 296 H 332 H 353 H Lactic Acid Calcium AST Alkaline Phosphatase CK-MB (CK-2) CK-MB (CK-2) Rel Index Albumin TSH Urine WBC (Auto) Salicylates 02/25/17 02/26/17 02/26/17 22:14 00:37 05:52 WBC RBC Hgb Hct MCV MCH RDW Plt Count Lymph % (Auto) [place] % (Auto) Eos % (Auto) Seg Neutrophils % Seg Neuts % (Manual) Lymphocytes % (Manual) Seg Neutrophils # Seg Neutrophils # Man Lymphocytes # (Manual) APTT POC ABG pH ABG pH POC ABG pCO2 POC ABG pO2 ABG pO2 ABG HCO3 ABG Base Excess ABG Hemoglobin VBG pH Oxyhemoglobin Sodium Potassium Chloride Carbon Dioxide BUN Creatinine Glucose POC Glucose 201 H 233 H 269 H Lactic Acid Calcium AST Alkaline Phosphatase CK-MB (CK-2) CK-MB (CK-2) Rel Index Albumin TSH Urine WBC (Auto) Salicylates 02/26/17 02/26/17 02/26/17 11:48 13:49 21:26 WBC RBC Hgb Hct MCV MCH RDW Plt Count Lymph % (Auto) [place] % (Auto) Eos % (Auto) Seg Neutrophils % Seg Neuts % (Manual) Lymphocytes % (Manual) Seg Neutrophils # Seg Neutrophils # Man Lymphocytes # (Manual) APTT POC ABG pH ABG pH POC ABG pCO2 POC ABG pO2 ABG pO2 ABG HCO3 ABG Base Excess ABG Hemoglobin VBG pH Oxyhemoglobin Sodium Potassium Chloride Carbon Dioxide BUN Creatinine Glucose POC Glucose 333 H 322 H 244 H Lactic Acid Calcium AST Alkaline Phosphatase CK-MB (CK-2) CK-MB (CK-2) Rel Index Albumin TSH Urine WBC (Auto) Salicylates 02/27/17 02/27/17 02/27/17 05:27 13:51 21:48 WBC RBC Hgb Hct MCV MCH RDW Plt Count Lymph % (Auto) [place] % (Auto) Eos % (Auto) Seg Neutrophils % Seg Neuts % (Manual) Lymphocytes % (Manual) Seg Neutrophils # Seg Neutrophils # Man Lymphocytes # (Manual) APTT POC ABG pH ABG pH POC ABG pCO2 POC ABG pO2 ABG pO2 ABG HCO3 ABG Base Excess ABG Hemoglobin VBG pH Oxyhemoglobin Sodium Potassium Chloride Carbon Dioxide BUN Creatinine Glucose POC Glucose 217 H 239 H 254 H Lactic Acid Calcium AST Alkaline Phosphatase CK-MB (CK-2) CK-MB (CK-2) Rel Index Albumin TSH Urine WBC (Auto) Salicylates 02/28/17 02/28/17 02/28/17 05:38 11:00 19:44 WBC RBC Hgb Hct MCV MCH RDW Plt Count Lymph % (Auto) [place] % (Auto) Eos % (Auto) Seg Neutrophils % Seg Neuts % (Manual) Lymphocytes % (Manual) Seg Neutrophils # Seg Neutrophils # Man Lymphocytes # (Manual) APTT POC ABG pH ABG pH POC ABG pCO2 POC ABG pO2 ABG pO2 ABG HCO3 ABG Base Excess ABG Hemoglobin VBG pH Oxyhemoglobin Sodium Potassium Chloride Carbon Dioxide BUN Creatinine Glucose POC Glucose 325 H 203 H 116 H Lactic Acid Calcium AST Alkaline Phosphatase CK-MB (CK-2) CK-MB (CK-2) Rel Index Albumin TSH Urine WBC (Auto) Salicylates 03/01/17 03/01/17 03/01/17 00:08 05:31 12:17 WBC RBC Hgb Hct MCV MCH RDW Plt Count Lymph % (Auto) [place] % (Auto) Eos % (Auto) Seg Neutrophils % Seg Neuts % (Manual) Lymphocytes % (Manual) Seg Neutrophils # Seg Neutrophils # Man Lymphocytes # (Manual) APTT POC ABG pH ABG pH POC ABG pCO2 POC ABG pO2 ABG pO2 ABG HCO3 ABG Base Excess ABG Hemoglobin VBG pH Oxyhemoglobin Sodium Potassium Chloride Carbon Dioxide BUN Creatinine Glucose POC Glucose 202 H 183 H 184 H Lactic Acid Calcium AST Alkaline Phosphatase CK-MB (CK-2) CK-MB (CK-2) Rel Index Albumin TSH Urine WBC (Auto) Salicylates 03/02/17 03/02/17 03/02/17 00:12 05:58 18:22 WBC RBC Hgb Hct MCV MCH RDW Plt Count Lymph % (Auto) [place] % (Auto) Eos % (Auto) Seg Neutrophils % Seg Neuts % (Manual) Lymphocytes % (Manual) Seg Neutrophils # Seg Neutrophils # Man Lymphocytes # (Manual) APTT POC ABG pH ABG pH POC ABG pCO2 POC ABG pO2 ABG pO2 ABG HCO3 ABG Base Excess ABG Hemoglobin VBG pH Oxyhemoglobin Sodium Potassium Chloride Carbon Dioxide BUN Creatinine Glucose POC Glucose 117 H 176 H 156 H Lactic Acid Calcium AST Alkaline Phosphatase CK-MB (CK-2) CK-MB (CK-2) Rel Index Albumin TSH Urine WBC (Auto) Salicylates 03/02/17 03/03/17 03/03/17 23:51 05:44 11:32 WBC RBC Hgb Hct MCV MCH RDW Plt Count Lymph % (Auto) [place] % (Auto) Eos % (Auto) Seg Neutrophils % Seg Neuts % (Manual) Lymphocytes % (Manual) Seg Neutrophils # Seg Neutrophils # Man Lymphocytes # (Manual) APTT POC ABG pH ABG pH POC ABG pCO2 POC ABG pO2 ABG pO2 ABG HCO3 ABG Base Excess ABG Hemoglobin VBG pH Oxyhemoglobin Sodium Potassium Chloride Carbon Dioxide BUN Creatinine Glucose POC Glucose 211 H 117 H 133 H Lactic Acid Calcium AST Alkaline Phosphatase CK-MB (CK-2) CK-MB (CK-2) Rel Index Albumin TSH Urine WBC (Auto) Salicylates 03/03/17 03/03/17 03/04/17 17:43 23:17 05:30 WBC RBC Hgb Hct MCV MCH RDW Plt Count Lymph % (Auto) [place] % (Auto) Eos % (Auto) Seg Neutrophils % Seg Neuts % (Manual) Lymphocytes % (Manual) Seg Neutrophils # Seg Neutrophils # Man Lymphocytes # (Manual) APTT POC ABG pH ABG pH POC ABG pCO2 POC ABG pO2 ABG pO2 ABG HCO3 ABG Base Excess ABG Hemoglobin VBG pH Oxyhemoglobin Sodium Potassium Chloride Carbon Dioxide BUN Creatinine Glucose POC Glucose 206 H 170 H 126 H Lactic Acid Calcium AST Alkaline Phosphatase CK-MB (CK-2) CK-MB (CK-2) Rel Index Albumin TSH Urine WBC (Auto) Salicylates 03/04/17 03/04/17 03/05/17 12:17 17:27 05:20 WBC RBC Hgb Hct MCV MCH RDW Plt Count Lymph % (Auto) [place] % (Auto) Eos % (Auto) Seg Neutrophils % Seg Neuts % (Manual) Lymphocytes % (Manual) Seg Neutrophils # Seg Neutrophils # Man Lymphocytes # (Manual) APTT POC ABG pH ABG pH POC ABG pCO2 POC ABG pO2 ABG pO2 ABG HCO3 ABG Base Excess ABG Hemoglobin VBG pH Oxyhemoglobin Sodium Potassium Chloride Carbon Dioxide BUN Creatinine Glucose POC Glucose 135 H 121 H 185 H Lactic Acid Calcium AST Alkaline Phosphatase CK-MB (CK-2) CK-MB (CK-2) Rel Index Albumin TSH Urine WBC (Auto) Salicylates 03/05/17 03/06/17 03/06/17 11:50 11:52 17:34 WBC RBC Hgb Hct MCV MCH RDW Plt Count Lymph % (Auto) [place] % (Auto) Eos % (Auto) Seg Neutrophils % Seg Neuts % (Manual) Lymphocytes % (Manual) Seg Neutrophils # Seg Neutrophils # Man Lymphocytes # (Manual) APTT POC ABG pH ABG pH POC ABG pCO2 POC ABG pO2 ABG pO2 ABG HCO3 ABG Base Excess ABG Hemoglobin VBG pH Oxyhemoglobin Sodium Potassium Chloride Carbon Dioxide BUN Creatinine Glucose POC Glucose 116 H 133 H 181 H Lactic Acid Calcium AST Alkaline Phosphatase CK-MB (CK-2) CK-MB (CK-2) Rel Index Albumin TSH Urine WBC (Auto) Salicylates 03/07/17 03/07/17 03/07/17 05:21 11:36 17:49 WBC RBC Hgb Hct MCV MCH RDW Plt Count Lymph % (Auto) [place] % (Auto) Eos % (Auto) Seg Neutrophils % Seg Neuts % (Manual) Lymphocytes % (Manual) Seg Neutrophils # Seg Neutrophils # Man Lymphocytes # (Manual) APTT POC ABG pH ABG pH POC ABG pCO2 POC ABG pO2 ABG pO2 ABG HCO3 ABG Base Excess ABG Hemoglobin VBG pH Oxyhemoglobin Sodium Potassium Chloride Carbon Dioxide BUN Creatinine Glucose POC Glucose 159 H 137 H 158 H Lactic Acid Calcium AST Alkaline Phosphatase CK-MB (CK-2) CK-MB (CK-2) Rel Index Albumin TSH Urine WBC (Auto) Salicylates 03/08/17 03/08/17 03/08/17 05:51 13:58 23:50 WBC RBC Hgb Hct MCV MCH RDW Plt Count Lymph % (Auto) [place] % (Auto) Eos % (Auto) Seg Neutrophils % Seg Neuts % (Manual) Lymphocytes % (Manual) Seg Neutrophils # Seg Neutrophils # Man Lymphocytes # (Manual) APTT POC ABG pH ABG pH POC ABG pCO2 POC ABG pO2 ABG pO2 ABG HCO3 ABG Base Excess ABG Hemoglobin VBG pH Oxyhemoglobin Sodium Potassium Chloride Carbon Dioxide BUN Creatinine Glucose POC Glucose 122 H 182 H 114 H Lactic Acid Calcium AST Alkaline Phosphatase CK-MB (CK-2) CK-MB (CK-2) Rel Index Albumin TSH Urine WBC (Auto) Salicylates 03/09/17 03/09/17 03/09/17 05:21 05:51 05:51 WBC RBC 3.61 L Hgb 9.5 L Hct 28.3 L MCV 79 L MCH 26 L RDW 17.8 H Plt Count Lymph % (Auto) [place] % (Auto) Eos % (Auto) Seg Neutrophils % Seg Neuts % (Manual) Lymphocytes % (Manual) Seg Neutrophils # Seg Neutrophils # Man Lymphocytes # (Manual) APTT POC ABG pH ABG pH POC ABG pCO2 POC ABG pO2 ABG pO2 ABG HCO3 ABG Base Excess ABG Hemoglobin VBG pH Oxyhemoglobin Sodium 134 L Potassium Chloride 95.5 L Carbon Dioxide BUN 33 H Creatinine 0.5 L Glucose 143 H POC Glucose 153 H Lactic Acid Calcium AST Alkaline Phosphatase CK-MB (CK-2) CK-MB (CK-2) Rel Index Albumin TSH Urine WBC (Auto) Salicylates 03/09/17 03/09/17 03/09/17 12:10 18:13 21:00 WBC RBC Hgb Hct MCV MCH RDW Plt Count Lymph % (Auto) [place] % (Auto) Eos % (Auto) Seg Neutrophils % Seg Neuts % (Manual) Lymphocytes % (Manual) Seg Neutrophils # Seg Neutrophils # Man Lymphocytes # (Manual) APTT POC ABG pH ABG pH POC ABG pCO2 POC ABG pO2 ABG pO2 ABG HCO3 ABG Base Excess ABG Hemoglobin VBG pH Oxyhemoglobin Sodium Potassium Chloride Carbon Dioxide BUN Creatinine Glucose POC Glucose 203 H 221 H 198 H Lactic Acid Calcium AST Alkaline Phosphatase CK-MB (CK-2) CK-MB (CK-2) Rel Index Albumin TSH Urine WBC (Auto) Salicylates 03/09/17 03/10/17 03/10/17 23:58 05:09 05:09 WBC RBC Hgb 10.3 L Hct 30.5 L MCV 78 L MCH 26 L RDW 17.9 H Plt Count Lymph % (Auto) [place] % (Auto) 10.0 H Eos % (Auto) 6.0 H Seg Neutrophils % Seg Neuts % (Manual) Lymphocytes % (Manual) Seg Neutrophils # Seg Neutrophils # Man Lymphocytes # (Manual) APTT POC ABG pH ABG pH POC ABG pCO2 POC ABG pO2 ABG pO2 ABG HCO3 ABG Base Excess ABG Hemoglobin VBG pH Oxyhemoglobin Sodium 132 L Potassium Chloride 92.2 L Carbon Dioxide BUN 33 H Creatinine 0.5 L Glucose 50 L POC Glucose 167 H Lactic Acid Calcium AST Alkaline Phosphatase CK-MB (CK-2) CK-MB (CK-2) Rel Index Albumin TSH Urine WBC (Auto) Salicylates 03/10/17 03/10/17 03/10/17 05:33 05:34 11:48 WBC RBC Hgb Hct MCV MCH RDW Plt Count Lymph % (Auto) [place] % (Auto) Eos % (Auto) Seg Neutrophils % Seg Neuts % (Manual) Lymphocytes % (Manual) Seg Neutrophils # Seg Neutrophils # Man Lymphocytes # (Manual) APTT POC ABG pH ABG pH POC ABG pCO2 POC ABG pO2 ABG pO2 ABG HCO3 ABG Base Excess ABG Hemoglobin VBG pH Oxyhemoglobin Sodium Potassium Chloride Carbon Dioxide BUN Creatinine Glucose POC Glucose 52 L 53 L 148 H Lactic Acid Calcium AST Alkaline Phosphatase CK-MB (CK-2) CK-MB (CK-2) Rel Index Albumin TSH Urine WBC (Auto) Salicylates 03/10/17 03/10/17 03/11/17 17:53 23:47 05:18 WBC RBC Hgb Hct MCV MCH RDW Plt Count Lymph % (Auto) [place] % (Auto) Eos % (Auto) Seg Neutrophils % Seg Neuts % (Manual) Lymphocytes % (Manual) Seg Neutrophils # Seg Neutrophils # Man Lymphocytes # (Manual) APTT POC ABG pH ABG pH POC ABG pCO2 POC ABG pO2 ABG pO2 ABG HCO3 ABG Base Excess ABG Hemoglobin VBG pH Oxyhemoglobin Sodium Potassium Chloride Carbon Dioxide BUN Creatinine Glucose POC Glucose 189 H 398 H 126 H Lactic Acid Calcium AST Alkaline Phosphatase CK-MB (CK-2) CK-MB (CK-2) Rel Index Albumin TSH Urine WBC (Auto) Salicylates 03/11/17 03/11/17 03/11/17 11:53 17:30 23:10 WBC RBC Hgb Hct MCV MCH RDW Plt Count Lymph % (Auto) [place] % (Auto) Eos % (Auto) Seg Neutrophils % Seg Neuts % (Manual) Lymphocytes % (Manual) Seg Neutrophils # Seg Neutrophils # Man Lymphocytes # (Manual) APTT POC ABG pH ABG pH POC ABG pCO2 POC ABG pO2 ABG pO2 ABG HCO3 ABG Base Excess ABG Hemoglobin VBG pH Oxyhemoglobin Sodium Potassium Chloride Carbon Dioxide BUN Creatinine Glucose POC Glucose 198 H 142 H 244 H Lactic Acid Calcium AST Alkaline Phosphatase CK-MB (CK-2) CK-MB (CK-2) Rel Index Albumin TSH Urine WBC (Auto) Salicylates 03/12/17 04:36 WBC RBC Hgb Hct MCV MCH RDW Plt Count Lymph % (Auto) [place] % (Auto) Eos % (Auto) Seg Neutrophils % Seg Neuts % (Manual) Lymphocytes % (Manual) Seg Neutrophils # Seg Neutrophils # Man Lymphocytes # (Manual) APTT POC ABG pH ABG pH POC ABG pCO2 POC ABG pO2 ABG pO2 ABG HCO3 ABG Base Excess ABG Hemoglobin VBG pH Oxyhemoglobin Sodium Potassium Chloride Carbon Dioxide BUN Creatinine Glucose POC Glucose 205 H Lactic Acid Calcium AST Alkaline Phosphatase CK-MB (CK-2) CK-MB (CK-2) Rel Index Albumin TSH Urine WBC (Auto) Sal[place]ylates
[2017-03-13] MEDS: HumuLIN R SUB-Q SCH ×4 (00:23→17:33)
[2017-03-13] MEDS: SYNTHROID PO SCH (05:54)
[2017-03-13] MEDS: PEPCID PO SCH ×2 (10:27→22:43)
--- NOTE | 2017-03-13 13:27 | Progress Note ---
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 (6) UTI (urinary tract infection) Current Visit: Yes Status: Acute (7) Pyelonephritis Current Visit: No Status: Acute (8) Renal insufficiency Current Visit: No Status: Acute (9) SIRS (systemic inflammatory response syndrome) Current Visit: No Status: Acute Subjective Principal diagnosis: Acute respiratory failure,encephalopathy Interval history: awake Objective Vital Signs - 12hr 03/13/17 03/13/17 03/13/17 02:00 03:00 03:03 Temperature Pulse Rate 73 72 74 Respiratory 18 16 Rate Blood Pressure 116/75 116/74 116/74 O2 Sat by Pulse 100 100 100 Oximetry 03/13/17 03/13/17 03/13/17 04:00 05:00 06:00 Temperature 98.9 F Pulse Rate 74 72 72 Respiratory 19 15 18 Rate Blood Pressure 114/72 122/69 113/68 O2 Sat by Pulse 100 100 100 Oximetry 03/13/17 03/13/17 03/13/17 07:00 07:52 07:59 Temperature Pulse Rate 71 67 67 Respiratory 18 15 22 Rate Blood Pressure 111/69 111/69 111/69 O2 Sat by Pulse 100 100 100 Oximetry 03/13/17 03/13/17 03/13/17 08:00 08:01 11:00 Temperature 99.3 F Pulse Rate 68 77 Respiratory 22 23 Rate Blood Pressure 148/75 119/77 O2 Sat by Pulse 100 100 100 Oximetry 03/13/17 03/13/17 12:00 13:21 Temperature 99.9 F H Pulse Rate 71 Respiratory Rate Blood Pressure 143/81 O2 Sat by Pulse 100 Oximetry Constitutional: no acute distress, other (intubated, on vent support) Eyes: non-icteric ENT: oropharynx moist Neck: supple Effort: normal Ascultation: Bilateral: clear, diminished breath sounds Cardiovascular: regular rate and rhythm Gastrointestinal: normoactive bowel sounds, soft, non-tender, non-distended Integumentary: normal Extremities: no cyanosis, no edema, pink and warm Neurologic: other (awake spontaneously, not not following any commands. Fixed stare.) Psychiatric: other (unable to obtain) CBC and BMP: 03/10/17 05:09 03/10/17 05:09 ABG, PT/INR, D-dimer: ABG POC ABG pH 7.442 (7.35-7.45) 01/31/17 18:55 ABG pH 7.420 pH Units (7.350-7.450) 01/17/17 04:35 POC ABG pCO2 32.8 (35-45) L 01/31/17 18:55 ABG pCO2 34.5 mm Hg 01/17/17 04:35 POC ABG pO2 82 (80-105) 01/31/17 18:55 ABG pO2 160.3 mm Hg (80.0-90.0) H 01/17/17 04:35 POC ABG HCO3 22.4 01/31/17 18:55 POC ABG Total CO2 23 01/31/17 18:55 POC ABG O2 Sat 97 01/31/17 18:55 ABG O2 Saturation 99.0 % (95.0-99.0) 01/17/17 04:35 PT/INR, D-dimer PT 14.1 Sec. (12.2-14.9) 01/17/17 04:10 INR 1.04 (0.87-1.13) 01/17/17 04:10 Abnormal lab findings: Abnormal Labs 01/09/17 01/09/17 01/09/17 10:16 10:16 10:16 WBC RBC Hgb 9.7 L Hct 28.4 L MCV 76 L MCH 26 L RDW 17.2 H Plt Count 448 H Lymph % (Auto) [place] % (Auto) Eos % (Auto) Seg Neutrophils % 79.5 H Seg Neuts % (Manual) Lymphocytes % (Manual) Seg Neutrophils # Seg Neutrophils # Man Lymphocytes # (Manual) APTT 39.6 H POC ABG pH ABG pH POC ABG pCO2 POC ABG pO2 ABG pO2 ABG HCO3 ABG Base Excess ABG Hemoglobin VBG pH Oxyhemoglobin Sodium 132 L Potassium Chloride 96.7 L Carbon Dioxide 21 L BUN 34 H Creatinine Glucose POC Glucose Lactic Acid Calcium 8.3 L AST Alkaline Phosphatase 151 H CK-MB (CK-2) 7.1 H CK-MB (CK-2) Rel Index 5.2 H Albumin 3.3 L TSH Urine WBC (Auto) Salicylates 01/09/17 01/09/17 01/09/17 10:16 10:16 10:16 WBC RBC Hgb Hct MCV MCH RDW Plt Count Lymph % (Auto) [place] % (Auto) Eos % (Auto) Seg Neutrophils % Seg Neuts % (Manual) Lymphocytes % (Manual) Seg Neutrophils # Seg Neutrophils # Man Lymphocytes # (Manual) APTT POC ABG pH ABG pH POC ABG pCO2 POC ABG pO2 ABG pO2 ABG HCO3 ABG Base Excess ABG Hemoglobin VBG pH 7.284 L Oxyhemoglobin Sodium Potassium Chloride Carbon Dioxide BUN Creatinine Glucose POC Glucose Lactic Acid Calcium AST Alkaline Phosphatase CK-MB (CK-2) CK-MB (CK-2) Rel Index Albumin TSH 52.800 H Urine WBC (Auto) Salicylates < 0.3 L 01/09/17 01/09/17 01/09/17 10:23 11:14 12:49 WBC RBC Hgb Hct MCV MCH RDW Plt Count Lymph % (Auto) [place] % (Auto) Eos % (Auto) Seg Neutrophils % Seg Neuts % (Manual) Lymphocytes % (Manual) Seg Neutrophils # Seg Neutrophils # Man Lymphocytes # (Manual) APTT POC ABG pH ABG pH POC ABG pCO2 POC ABG pO2 643 H ABG pO2 ABG HCO3 ABG Base Excess ABG Hemoglobin VBG pH Oxyhemoglobin Sodium Potassium Chloride Carbon Dioxide BUN Creatinine Glucose POC Glucose < 40 L Lactic Acid Calcium AST Alkaline Phosphatase CK-MB (CK-2) CK-MB (CK-2) Rel Index Albumin TSH Urine WBC (Auto) 61.0 H Salicylates 01/09/17 01/09/17 01/09/17 13:13 14:21 15:09 WBC RBC Hgb Hct MCV MCH RDW Plt Count Lymph % (Auto) [place] % (Auto) Eos % (Auto) Seg Neutrophils % Seg Neuts % (Manual) Lymphocytes % (Manual) Seg Neutrophils # Seg Neutrophils # Man Lymphocytes # (Manual) APTT POC ABG pH ABG pH POC ABG pCO2 POC ABG pO2 ABG pO2 ABG HCO3 ABG Base Excess ABG Hemoglobin VBG pH Oxyhemoglobin Sodium Potassium Chloride Carbon Dioxide BUN Creatinine Glucose POC Glucose 128 H 65 L 120 H Lactic Acid Calcium AST Alkaline Phosphatase CK-MB (CK-2) CK-MB (CK-2) Rel Index Albumin TSH Urine WBC (Auto) Salicylates 01/09/17 01/09/17 01/10/17 16:28 17:14 04:30 WBC 24.1 H RBC 3.38 L Hgb 8.5 L Hct 26.0 L MCV 77 L MCH 25 L RDW 17.9 H Plt Count 474 H Lymph % (Auto) [place] % (Auto) Eos % (Auto) Seg Neutrophils % Seg Neuts % (Manual) 88.0 H Lymphocytes % (Manual) 4.0 L Seg Neutrophils # Seg Neutrophils # Man 21.2 H Lymphocytes # (Manual) 1.0 L APTT POC ABG pH ABG pH POC ABG pCO2 POC ABG pO2 ABG pO2 ABG HCO3 ABG Base Excess ABG Hemoglobin VBG pH Oxyhemoglobin Sodium Potassium Chloride Carbon Dioxide BUN Creatinine Glucose POC Glucose 44 L 112 H Lactic Acid Calcium AST Alkaline Phosphatase CK-MB (CK-2) CK-MB (CK-2) Rel Index Albumin TSH Urine WBC (Auto) Salicylates 01/10/17 01/10/17 01/10/17 04:30 05:41 05:45 WBC RBC Hgb Hct MCV MCH RDW Plt Count Lymph % (Auto) [place] % (Auto) Eos % (Auto) Seg Neutrophils % Seg Neuts % (Manual) Lymphocytes % (Manual) Seg Neutrophils # Seg Neutrophils # Man Lymphocytes # (Manual) APTT POC ABG pH ABG pH POC ABG pCO2 26.6 L POC ABG pO2 207 H ABG pO2 ABG HCO3 ABG Base Excess ABG Hemoglobin VBG pH Oxyhemoglobin Sodium Potassium Chloride Carbon Dioxide 17 L BUN 27 H Creatinine Glucose POC Glucose 68 L Lactic Acid Calcium 7.5 L AST Alkaline Phosphatase CK-MB (CK-2) CK-MB (CK-2) Rel Index Albumin TSH Urine WBC (Auto) Salicylates 01/10/17 01/10/17 01/10/17 07:47 10:50 13:41 WBC RBC Hgb Hct MCV MCH RDW Plt Count Lymph % (Auto) [place] % (Auto) Eos % (Auto) Seg Neutrophils % Seg Neuts % (Manual) Lymphocytes % (Manual) Seg Neutrophils # Seg Neutrophils # Man Lymphocytes # (Manual) APTT POC ABG pH ABG pH POC ABG pCO2 POC ABG pO2 ABG pO2 ABG HCO3 ABG Base Excess ABG Hemoglobin VBG pH Oxyhemoglobin Sodium Potassium Chloride Carbon Dioxide BUN Creatinine Glucose POC Glucose 148 H 165 H 114 H Lactic Acid Calcium AST Alkaline Phosphatase CK-MB (CK-2) CK-MB (CK-2) Rel Index Albumin TSH Urine WBC (Auto) Salicylates 01/10/17 01/10/17 01/10/17 20:20 21:39 23:24 WBC RBC Hgb Hct MCV MCH RDW Plt Count Lymph % (Auto) [place] % (Auto) Eos % (Auto) Seg Neutrophils % Seg Neuts % (Manual) Lymphocytes % (Manual) Seg Neutrophils # Seg Neutrophils # Man Lymphocytes # (Manual) APTT POC ABG pH ABG pH POC ABG pCO2 POC ABG pO2 ABG pO2 ABG HCO3 ABG Base Excess ABG Hemoglobin VBG pH Oxyhemoglobin Sodium Potassium Chloride Carbon Dioxide BUN Creatinine Glucose POC Glucose 150 H 175 H 155 H Lactic Acid Calcium AST Alkaline Phosphatase CK-MB (CK-2) CK-MB (CK-2) Rel Index Albumin TSH Urine WBC (Auto) Salicylates 01/11/17 01/11/17 01/11/17 00:19 04:06 05:20 WBC 15.2 H RBC 3.40 L Hgb 8.9 L Hct 26.3 L MCV 78 L MCH 26 L RDW 18.6 H Plt Count 462 H Lymph % (Auto) 13.2 L [place] % (Auto) Eos % (Auto) Seg Neutrophils % 80.8 H Seg Neuts % (Manual) Lymphocytes % (Manual) Seg Neutrophils # 12.3 H Seg Neutrophils # Man Lymphocytes # (Manual) APTT POC ABG pH 7.463 H ABG pH POC ABG pCO2 26.2 L POC ABG pO2 185 H ABG pO2 ABG HCO3 ABG Base Excess ABG Hemoglobin VBG pH Oxyhemoglobin Sodium Potassium Chloride Carbon Dioxide BUN Creatinine Glucose POC Glucose 163 H Lactic Acid Calcium AST Alkaline Phosphatase CK-MB (CK-2) CK-MB (CK-2) Rel Index Albumin TSH Urine WBC (Auto) Salicylates 01/11/17 01/11/17 01/11/17 05:20 06:21 07:57 WBC RBC Hgb Hct MCV MCH RDW Plt Count Lymph % (Auto) [place] % (Auto) Eos % (Auto) Seg Neutrophils % Seg Neuts % (Manual) Lymphocytes % (Manual) Seg Neutrophils # Seg Neutrophils # Man Lymphocytes # (Manual) APTT POC ABG pH ABG pH POC ABG pCO2 POC ABG pO2 ABG pO2 ABG HCO3 ABG Base Excess ABG Hemoglobin VBG pH Oxyhemoglobin Sodium Potassium 3.4 L Chloride 111.5 H Carbon Dioxide 17 L BUN Creatinine Glucose 147 H POC Glucose 139 H 188 H Lactic Acid Calcium 8.0 L AST Alkaline Phosphatase CK-MB (CK-2) CK-MB (CK-2) Rel Index Albumin TSH Urine WBC (Auto) Salicylates 01/11/17 01/11/17 01/11/17 11:46 16:50 23:15 WBC RBC Hgb Hct MCV MCH RDW Plt Count Lymph % (Auto) [place] % (Auto) Eos % (Auto) Seg Neutrophils % Seg Neuts % (Manual) Lymphocytes % (Manual) Seg Neutrophils # Seg Neutrophils # Man Lymphocytes # (Manual) APTT POC ABG pH ABG pH POC ABG pCO2 POC ABG pO2 ABG pO2 ABG HCO3 ABG Base Excess ABG Hemoglobin VBG pH Oxyhemoglobin Sodium Potassium Chloride Carbon Dioxide BUN Creatinine Glucose POC Glucose 199 H 235 H 155 H Lactic Acid Calcium AST Alkaline Phosphatase CK-MB (CK-2) CK-MB (CK-2) Rel Index Albumin TSH Urine WBC (Auto) Salicylates 01/12/17 01/12/17 01/12/17 05:02 06:56 14:50 WBC RBC Hgb Hct MCV MCH RDW Plt Count Lymph % (Auto) [place] % (Auto) Eos % (Auto) Seg Neutrophils % Seg Neuts % (Manual) Lymphocytes % (Manual) Seg Neutrophils # Seg Neutrophils # Man Lymphocytes # (Manual) APTT POC ABG pH ABG pH POC ABG pCO2 28.0 L POC ABG pO2 178 H ABG pO2 ABG HCO3 ABG Base Excess ABG Hemoglobin VBG pH Oxyhemoglobin Sodium Potassium Chloride Carbon Dioxide BUN Creatinine Glucose POC Glucose 119 H 164 H Lactic Acid Calcium AST Alkaline Phosphatase CK-MB (CK-2) CK-MB (CK-2) Rel Index Albumin TSH Urine WBC (Auto) Salicylates 01/13/17 01/13/17 01/13/17 03:37 03:37 04:26 WBC RBC 3.61 L Hgb 9.3 L Hct 28.0 L MCV 78 L MCH 26 L RDW 18.2 H Plt Count Lymph % (Auto) [place] % (Auto) Eos % (Auto) Seg Neutrophils % Seg Neuts % (Manual) Lymphocytes % (Manual) Seg Neutrophils # Seg Neutrophils # Man Lymphocytes # (Manual) APTT POC ABG pH 7.485 H ABG pH POC ABG pCO2 25.4 L POC ABG pO2 73 L ABG pO2 ABG HCO3 ABG Base Excess ABG Hemoglobin VBG pH Oxyhemoglobin Sodium Potassium Chloride 112.4 H Carbon Dioxide 19 L BUN Creatinine Glucose 118 H POC Glucose Lactic Acid Calcium 8.0 L AST Alkaline Phosphatase CK-MB (CK-2) CK-MB (CK-2) Rel Index Albumin TSH Urine WBC (Auto) Salicylates 01/13/17 01/13/17 01/13/17 06:15 11:50 17:31 WBC RBC Hgb Hct MCV MCH RDW Plt Count Lymph % (Auto) [place] % (Auto) Eos % (Auto) Seg Neutrophils % Seg Neuts % (Manual) Lymphocytes % (Manual) Seg Neutrophils # Seg Neutrophils # Man Lymphocytes # (Manual) APTT POC ABG pH ABG pH POC ABG pCO2 POC ABG pO2 ABG pO2 ABG HCO3 ABG Base Excess ABG Hemoglobin VBG pH Oxyhemoglobin Sodium Potassium Chloride Carbon Dioxide BUN Creatinine Glucose POC Glucose 116 H 171 H 203 H Lactic Acid Calcium AST Alkaline Phosphatase CK-MB (CK-2) CK-MB (CK-2) Rel Index Albumin TSH Urine WBC (Auto) Salicylates 01/14/17 01/14/17 01/14/17 00:02 04:50 04:50 WBC RBC 3.32 L Hgb 8.5 L Hct 26.1 L MCV 79 L MCH 26 L RDW 18.2 H Plt Count Lymph % (Auto) [place] % (Auto) 9.0 H Eos % (Auto) Seg Neutrophils % Seg Neuts % (Manual) Lymphocytes % (Manual) Seg Neutrophils # Seg Neutrophils # Man Lymphocytes # (Manual) APTT POC ABG pH ABG pH POC ABG pCO2 POC ABG pO2 ABG pO2 ABG HCO3 ABG Base Excess ABG Hemoglobin VBG pH Oxyhemoglobin Sodium Potassium Chloride 112.5 H Carbon Dioxide BUN Creatinine Glucose 149 H POC Glucose 157 H Lactic Acid Calcium 8.1 L AST Alkaline Phosphatase CK-MB (CK-2) CK-MB (CK-2) Rel Index Albumin TSH Urine WBC (Auto) Salicylates 01/14/17 01/14/17 01/14/17 05:10 11:27 14:07 WBC RBC Hgb Hct MCV MCH RDW Plt Count Lymph % (Auto) [place] % (Auto) Eos % (Auto) Seg Neutrophils % Seg Neuts % (Manual) Lymphocytes % (Manual) Seg Neutrophils # Seg Neutrophils # Man Lymphocytes # (Manual) APTT POC ABG pH ABG pH POC ABG pCO2 POC ABG pO2 ABG pO2 ABG HCO3 ABG Base Excess ABG Hemoglobin VBG pH Oxyhemoglobin Sodium Potassium Chloride Carbon Dioxide BUN Creatinine Glucose POC Glucose 176 H 147 H Lactic Acid Calcium AST Alkaline Phosphatase CK-MB (CK-2) CK-MB (CK-2) Rel Index Albumin TSH Urine WBC (Auto) 53.0 H Salicylates 01/14/17 01/15/17 01/15/17 16:52 00:04 05:26 WBC RBC Hgb Hct MCV MCH RDW Plt Count Lymph % (Auto) [place] % (Auto) Eos % (Auto) Seg Neutrophils % Seg Neuts % (Manual) Lymphocytes % (Manual) Seg Neutrophils # Seg Neutrophils # Man Lymphocytes # (Manual) APTT POC ABG pH ABG pH POC ABG pCO2 POC ABG pO2 ABG pO2 ABG HCO3 ABG Base Excess ABG Hemoglobin VBG pH Oxyhemoglobin Sodium Potassium Chloride Carbon Dioxide BUN Creatinine Glucose POC Glucose 131 H 193 H 215 H Lactic Acid Calcium AST Alkaline Phosphatase CK-MB (CK-2) CK-MB (CK-2) Rel Index Albumin TSH Urine WBC (Auto) Salicylates 01/15/17 01/15/17 01/15/17 11:49 17:47 21:33 WBC RBC Hgb Hct MCV MCH RDW Plt Count Lymph % (Auto) [place] % (Auto) Eos % (Auto) Seg Neutrophils % Seg Neuts % (Manual) Lymphocytes % (Manual) Seg Neutrophils # Seg Neutrophils # Man Lymphocytes # (Manual) APTT POC ABG pH ABG pH POC ABG pCO2 POC ABG pO2 ABG pO2 ABG HCO3 ABG Base Excess ABG Hemoglobin VBG pH Oxyhemoglobin Sodium Potassium Chloride Carbon Dioxide BUN Creatinine Glucose POC Glucose 121 H 211 H 275 H Lactic Acid Calcium AST Alkaline Phosphatase CK-MB (CK-2) CK-MB (CK-2) Rel Index Albumin TSH Urine WBC (Auto) Salicylates 01/16/17 01/16/17 01/16/17 04:30 05:28 13:45 WBC RBC Hgb Hct MCV MCH RDW Plt Count Lymph % (Auto) [place] % (Auto) Eos % (Auto) Seg Neutrophils % Seg Neuts % (Manual) Lymphocytes % (Manual) Seg Neutrophils # Seg Neutrophils # Man Lymphocytes # (Manual) APTT POC ABG pH ABG pH 7.457 H POC ABG pCO2 POC ABG pO2 ABG pO2 55.1 L ABG HCO3 19.4 L ABG Base Excess -4.0 L ABG Hemoglobin 6.8 L VBG pH Oxyhemoglobin 94.9 L Sodium Potassium Chloride Carbon Dioxide BUN Creatinine Glucose POC Glucose 271 H 236 H Lactic Acid Calcium AST Alkaline Phosphatase CK-MB (CK-2) CK-MB (CK-2) Rel Index Albumin TSH Urine WBC (Auto) Salicylates 01/16/17 01/17/17 01/17/17 21:39 04:10 04:10 WBC 4.4 L RBC 2.98 L Hgb 7.7 L Hct 23.3 L MCV 78 L MCH 26 L RDW 18.1 H Plt Count Lymph % (Auto) [place] % (Auto) Eos % (Auto) Seg Neutrophils % Seg Neuts % (Manual) Lymphocytes % (Manual) Seg Neutrophils # Seg Neutrophils # Man Lymphocytes # (Manual) APTT POC ABG pH ABG pH POC ABG pCO2 POC ABG pO2 ABG pO2 ABG HCO3 ABG Base Excess ABG Hemoglobin VBG pH Oxyhemoglobin Sodium Potassium 3.3 L Chloride 108.7 H Carbon Dioxide 20 L BUN 8 L Creatinine Glucose 202 H POC Glucose 258 H Lactic Acid Calcium 7.6 L AST Alkaline Phosphatase CK-MB (CK-2) CK-MB (CK-2) Rel Index Albumin TSH Urine WBC (Auto) Salicylates 01/17/17 01/17/17 01/17/17 04:35 12:23 16:01 WBC RBC Hgb Hct MCV MCH RDW Plt Count Lymph % (Auto) [place] % (Auto) Eos % (Auto) Seg Neutrophils % Seg Neuts % (Manual) Lymphocytes % (Manual) Seg Neutrophils # Seg Neutrophils # Man Lymphocytes # (Manual) APTT POC ABG pH ABG pH POC ABG pCO2 POC ABG pO2 ABG pO2 160.3 H ABG HCO3 ABG Base Excess -2.3 L ABG Hemoglobin 7.9 L VBG pH Oxyhemoglobin Sodium Potassium Chloride Carbon Dioxide BUN Creatinine Glucose POC Glucose 321 H 239 H Lactic Acid Calcium AST Alkaline Phosphatase CK-MB (CK-2) CK-MB (CK-2) Rel Index Albumin TSH Urine WBC (Auto) Salicylates 01/18/17 01/18/17 01/18/17 05:07 12:09 17:54 WBC RBC Hgb Hct MCV MCH RDW Plt Count Lymph % (Auto) [place] % (Auto) Eos % (Auto) Seg Neutrophils % Seg Neuts % (Manual) Lymphocytes % (Manual) Seg Neutrophils # Seg Neutrophils # Man Lymphocytes # (Manual) APTT POC ABG pH ABG pH POC ABG pCO2 POC ABG pO2 ABG pO2 ABG HCO3 ABG Base Excess ABG Hemoglobin VBG pH Oxyhemoglobin Sodium Potassium Chloride Carbon Dioxide BUN Creatinine Glucose POC Glucose 155 H 203 H 132 H Lactic Acid Calcium AST Alkaline Phosphatase CK-MB (CK-2) CK-MB (CK-2) Rel Index Albumin TSH Urine WBC (Auto) Salicylates 01/18/17 01/19/17 01/19/17 23:43 04:28 12:11 WBC RBC Hgb Hct MCV MCH RDW Plt Count Lymph % (Auto) [place] % (Auto) Eos % (Auto) Seg Neutrophils % Seg Neuts % (Manual) Lymphocytes % (Manual) Seg Neutrophils # Seg Neutrophils # Man Lymphocytes # (Manual) APTT POC ABG pH ABG pH POC ABG pCO2 POC ABG pO2 ABG pO2 ABG HCO3 ABG Base Excess ABG Hemoglobin VBG pH Oxyhemoglobin Sodium Potassium Chloride Carbon Dioxide BUN Creatinine Glucose POC Glucose 125 H 182 H 153 H Lactic Acid Calcium AST Alkaline Phosphatase CK-MB (CK-2) CK-MB (CK-2) Rel Index Albumin TSH Urine WBC (Auto) Salicylates 01/19/17 01/20/17 01/20/17 17:23 00:12 05:44 WBC RBC Hgb Hct MCV MCH RDW Plt Count Lymph % (Auto) [place] % (Auto) Eos % (Auto) Seg Neutrophils % Seg Neuts % (Manual) Lymphocytes % (Manual) Seg Neutrophils # Seg Neutrophils # Man Lymphocytes # (Manual) APTT POC ABG pH ABG pH POC ABG pCO2 POC ABG pO2 ABG pO2 ABG HCO3 ABG Base Excess ABG Hemoglobin VBG pH Oxyhemoglobin Sodium Potassium Chloride Carbon Dioxide BUN Creatinine Glucose POC Glucose 66 L 139 H 176 H Lactic Acid Calcium AST Alkaline Phosphatase CK-MB (CK-2) CK-MB (CK-2) Rel Index Albumin TSH Urine WBC (Auto) Salicylates 01/20/17 01/20/17 01/20/17 11:48 17:42 23:43 WBC RBC Hgb Hct MCV MCH RDW Plt Count Lymph % (Auto) [place] % (Auto) Eos % (Auto) Seg Neutrophils % Seg Neuts % (Manual) Lymphocytes % (Manual) Seg Neutrophils # Seg Neutrophils # Man Lymphocytes # (Manual) APTT POC ABG pH ABG pH POC ABG pCO2 POC ABG pO2 ABG pO2 ABG HCO3 ABG Base Excess ABG Hemoglobin VBG pH Oxyhemoglobin Sodium Potassium Chloride Carbon Dioxide BUN Creatinine Glucose POC Glucose 218 H 132 H 178 H Lactic Acid Calcium AST Alkaline Phosphatase CK-MB (CK-2) CK-MB (CK-2) Rel Index Albumin TSH Urine WBC (Auto) Salicylates 01/21/17 01/21/17 01/21/17 05:34 11:17 23:37 WBC RBC Hgb Hct MCV MCH RDW Plt Count Lymph % (Auto) [place] % (Auto) Eos % (Auto) Seg Neutrophils % Seg Neuts % (Manual) Lymphocytes % (Manual) Seg Neutrophils # Seg Neutrophils # Man Lymphocytes # (Manual) APTT POC ABG pH ABG pH POC ABG pCO2 POC ABG pO2 ABG pO2 ABG HCO3 ABG Base Excess ABG Hemoglobin VBG pH Oxyhemoglobin Sodium Potassium Chloride Carbon Dioxide BUN Creatinine Glucose POC Glucose 106 H 213 H 140 H Lactic Acid Calcium AST Alkaline Phosphatase CK-MB (CK-2) CK-MB (CK-2) Rel Index Albumin TSH Urine WBC (Auto) Salicylates 01/22/17 01/22/17 01/22/17 04:00 04:00 04:58 WBC RBC 3.26 L Hgb 8.3 L Hct 25.5 L MCV 78 L MCH 25 L RDW 17.9 H Plt Count Lymph % (Auto) [place] % (Auto) 7.9 H Eos % (Auto) 6.2 H Seg Neutrophils % Seg Neuts % (Manual) Lymphocytes % (Manual) Seg Neutrophils # Seg Neutrophils # Man Lymphocytes # (Manual) APTT POC ABG pH ABG pH POC ABG pCO2 POC ABG pO2 ABG pO2 ABG HCO3 ABG Base Excess ABG Hemoglobin VBG pH Oxyhemoglobin Sodium Potassium Chloride 95.5 L Carbon Dioxide 31 H D BUN Creatinine Glucose 134 H POC Glucose 146 H Lactic Acid Calcium AST 44 H Alkaline Phosphatase 379 H CK-MB (CK-2) CK-MB (CK-2) Rel Index Albumin 2.7 L TSH Urine WBC (Auto) Salicylates 01/22/17 01/22/17 01/22/17 12:12 18:12 23:39 WBC RBC Hgb Hct MCV MCH RDW Plt Count Lymph % (Auto) [place] % (Auto) Eos % (Auto) Seg Neutrophils % Seg Neuts % (Manual) Lymphocytes % (Manual) Seg Neutrophils # Seg Neutrophils # Man Lymphocytes # (Manual) APTT POC ABG pH ABG pH POC ABG pCO2 POC ABG pO2 ABG pO2 ABG HCO3 ABG Base Excess ABG Hemoglobin VBG pH Oxyhemoglobin Sodium Potassium Chloride Carbon Dioxide BUN Creatinine Glucose POC Glucose 255 H 182 H 134 H Lactic Acid Calcium AST Alkaline Phosphatase CK-MB (CK-2) CK-MB (CK-2) Rel Index Albumin TSH Urine WBC (Auto) Salicylates 01/23/17 01/23/17 01/23/17 04:43 12:12 17:36 WBC RBC Hgb Hct MCV MCH RDW Plt Count Lymph % (Auto) [place] % (Auto) Eos % (Auto) Seg Neutrophils % Seg Neuts % (Manual) Lymphocytes % (Manual) Seg Neutrophils # Seg Neutrophils # Man Lymphocytes # (Manual) APTT POC ABG pH ABG pH POC ABG pCO2 POC ABG pO2 ABG pO2 ABG HCO3 ABG Base Excess ABG Hemoglobin VBG pH Oxyhemoglobin Sodium Potassium Chloride Carbon Dioxide BUN Creatinine Glucose POC Glucose 218 H 128 H 156 H Lactic Acid Calcium AST Alkaline Phosphatase CK-MB (CK-2) CK-MB (CK-2) Rel Index Albumin TSH Urine WBC (Auto) Salicylates 01/24/17 01/24/17 01/24/17 00:08 05:16 11:40 WBC RBC Hgb Hct MCV MCH RDW Plt Count Lymph % (Auto) [place] % (Auto) Eos % (Auto) Seg Neutrophils % Seg Neuts % (Manual) Lymphocytes % (Manual) Seg Neutrophils # Seg Neutrophils # Man Lymphocytes # (Manual) APTT POC ABG pH ABG pH POC ABG pCO2 POC ABG pO2 ABG pO2 ABG HCO3 ABG Base Excess ABG Hemoglobin VBG pH Oxyhemoglobin Sodium Potassium Chloride Carbon Dioxide BUN Creatinine Glucose POC Glucose 129 H 169 H 187 H Lactic Acid Calcium AST Alkaline Phosphatase CK-MB (CK-2) CK-MB (CK-2) Rel Index Albumin TSH Urine WBC (Auto) Salicylates 01/24/17 01/24/17 01/25/17 17:43 23:23 04:56 WBC RBC Hgb Hct MCV MCH RDW Plt Count Lymph % (Auto) [place] % (Auto) Eos % (Auto) Seg Neutrophils % Seg Neuts % (Manual) Lymphocytes % (Manual) Seg Neutrophils # Seg Neutrophils # Man Lymphocytes # (Manual) APTT POC ABG pH ABG pH POC ABG pCO2 POC ABG pO2 ABG pO2 ABG HCO3 ABG Base Excess ABG Hemoglobin VBG pH Oxyhemoglobin Sodium Potassium Chloride Carbon Dioxide BUN Creatinine Glucose POC Glucose 215 H 222 H 210 H Lactic Acid Calcium AST Alkaline Phosphatase CK-MB (CK-2) CK-MB (CK-2) Rel Index Albumin TSH Urine WBC (Auto) Salicylates 01/25/17 01/25/17 01/26/17 11:52 17:37 00:02 WBC RBC Hgb Hct MCV MCH RDW Plt Count Lymph % (Auto) [place] % (Auto) Eos % (Auto) Seg Neutrophils % Seg Neuts % (Manual) Lymphocytes % (Manual) Seg Neutrophils # Seg Neutrophils # Man Lymphocytes # (Manual) APTT POC ABG pH ABG pH POC ABG pCO2 POC ABG pO2 ABG pO2 ABG HCO3 ABG Base Excess ABG Hemoglobin VBG pH Oxyhemoglobin Sodium Potassium Chloride Carbon Dioxide BUN Creatinine Glucose POC Glucose 284 H 218 H 192 H Lactic Acid Calcium AST Alkaline Phosphatase CK-MB (CK-2) CK-MB (CK-2) Rel Index Albumin TSH Urine WBC (Auto) Salicylates 01/26/17 01/26/17 01/26/17 05:33 12:17 17:50 WBC RBC Hgb Hct MCV MCH RDW Plt Count Lymph % (Auto) [place] % (Auto) Eos % (Auto) Seg Neutrophils % Seg Neuts % (Manual) Lymphocytes % (Manual) Seg Neutrophils # Seg Neutrophils # Man Lymphocytes # (Manual) APTT POC ABG pH ABG pH POC ABG pCO2 POC ABG pO2 ABG pO2 ABG HCO3 ABG Base Excess ABG Hemoglobin VBG pH Oxyhemoglobin Sodium Potassium Chloride Carbon Dioxide BUN Creatinine Glucose POC Glucose 199 H 227 H 229 H Lactic Acid Calcium AST Alkaline Phosphatase CK-MB (CK-2) CK-MB (CK-2) Rel Index Albumin TSH Urine WBC (Auto) Salicylates 01/26/17 01/27/17 01/27/17 23:57 05:31 11:42 WBC RBC Hgb Hct MCV MCH RDW Plt Count Lymph % (Auto) [place] % (Auto) Eos % (Auto) Seg Neutrophils % Seg Neuts % (Manual) Lymphocytes % (Manual) Seg Neutrophils # Seg Neutrophils # Man Lymphocytes # (Manual) APTT POC ABG pH ABG pH POC ABG pCO2 POC ABG pO2 ABG pO2 ABG HCO3 ABG Base Excess ABG Hemoglobin VBG pH Oxyhemoglobin Sodium Potassium Chloride Carbon Dioxide BUN Creatinine Glucose POC Glucose 186 H 285 H 260 H Lactic Acid Calcium AST Alkaline Phosphatase CK-MB (CK-2) CK-MB (CK-2) Rel Index Albumin TSH Urine WBC (Auto) Salicylates 01/27/17 01/27/17 01/27/17 17:47 23:58 Unknown WBC 12.1 H RBC 3.28 L Hgb 8.5 L Hct 25.5 L MCV 78 L MCH 26 L RDW 16.8 H Plt Count 601 H Lymph % (Auto) [place] % (Auto) Eos % (Auto) Seg Neutrophils % Seg Neuts % (Manual) Lymphocytes % (Manual) Seg Neutrophils # Seg Neutrophils # Man Lymphocytes # (Manual) APTT POC ABG pH ABG pH POC ABG pCO2 POC ABG pO2 ABG pO2 ABG HCO3 ABG Base Excess ABG Hemoglobin VBG pH Oxyhemoglobin Sodium Potassium Chloride Carbon Dioxide BUN Creatinine Glucose POC Glucose 329 H 225 H Lactic Acid Calcium AST Alkaline Phosphatase CK-MB (CK-2) CK-MB (CK-2) Rel Index Albumin TSH Urine WBC (Auto) Salicylates 01/27/17 01/28/17 01/28/17 Unknown 03:44 03:44 WBC RBC 3.14 L Hgb 8.2 L Hct 24.1 L MCV 77 L MCH 26 L RDW 16.9 H Plt Count 567 H Lymph % (Auto) [place] % (Auto) Eos % (Auto) Seg Neutrophils % Seg Neuts % (Manual) Lymphocytes % (Manual) Seg Neutrophils # Seg Neutrophils # Man Lymphocytes # (Manual) APTT POC ABG pH ABG pH POC ABG pCO2 POC ABG pO2 ABG pO2 ABG HCO3 ABG Base Excess ABG Hemoglobin VBG pH Oxyhemoglobin Sodium 128 L Potassium 5.4 H Chloride 87.5 L Carbon Dioxide BUN 44 H 42 H Creatinine Glucose 250 H 128 H POC Glucose Lactic Acid Calcium AST Alkaline Phosphatase CK-MB (CK-2) CK-MB (CK-2) Rel Index Albumin TSH Urine WBC (Auto) Salicylates 01/28/17 01/28/17 01/28/17 11:43 16:47 17:52 WBC RBC Hgb Hct MCV MCH RDW Plt Count Lymph % (Auto) [place] % (Auto) Eos % (Auto) Seg Neutrophils % Seg Neuts % (Manual) Lymphocytes % (Manual) Seg Neutrophils # Seg Neutrophils # Man Lymphocytes # (Manual) APTT POC ABG pH ABG pH POC ABG pCO2 POC ABG pO2 ABG pO2 ABG HCO3 ABG Base Excess ABG Hemoglobin VBG pH Oxyhemoglobin Sodium Potassium Chloride Carbon Dioxide BUN Creatinine Glucose POC Glucose 351 H 249 H Lactic Acid Calcium AST Alkaline Phosphatase CK-MB (CK-2) CK-MB (CK-2) Rel Index Albumin TSH Urine WBC (Auto) > 182.0 H Salicylates 01/29/17 01/29/17 01/29/17 05:25 05:25 09:32 WBC 13.6 H RBC 3.25 L Hgb 8.3 L Hct 25.1 L MCV 77 L MCH 26 L RDW 16.8 H Plt Count 514 H Lymph % (Auto) [place] % (Auto) Eos % (Auto) Seg Neutrophils % Seg Neuts % (Manual) Lymphocytes % (Manual) Seg Neutrophils # Seg Neutrophils # Man Lymphocytes # (Manual) APTT POC ABG pH ABG pH POC ABG pCO2 POC ABG pO2 ABG pO2 ABG HCO3 ABG Base Excess ABG Hemoglobin VBG pH Oxyhemoglobin Sodium Potassium Chloride 97.8 L Carbon Dioxide BUN 34 H Creatinine Glucose 222 H POC Glucose Lactic Acid 2.50 H* Calcium AST Alkaline Phosphatase CK-MB (CK-2) CK-MB (CK-2) Rel Index Albumin TSH Urine WBC (Auto) Salicylates 01/29/17 01/29/17 01/29/17 11:56 18:11 23:55 WBC RBC Hgb Hct MCV MCH RDW Plt Count Lymph % (Auto) [place] % (Auto) Eos % (Auto) Seg Neutrophils % Seg Neuts % (Manual) Lymphocytes % (Manual) Seg Neutrophils # Seg Neutrophils # Man Lymphocytes # (Manual) APTT POC ABG pH ABG pH POC ABG pCO2 POC ABG pO2 ABG pO2 ABG HCO3 ABG Base Excess ABG Hemoglobin VBG pH Oxyhemoglobin Sodium Potassium Chloride Carbon Dioxide BUN Creatinine Glucose POC Glucose 261 H 215 H 176 H Lactic Acid Calcium AST Alkaline Phosphatase CK-MB (CK-2) CK-MB (CK-2) Rel Index Albumin TSH Urine WBC (Auto) Salicylates 01/30/17 01/30/17 01/30/17 05:31 05:31 05:34 WBC 15.2 H RBC 3.09 L Hgb 7.9 L Hct 23.9 L MCV 77 L MCH 26 L RDW 16.9 H Plt Count 569 H Lymph % (Auto) [place] % (Auto) Eos % (Auto) Seg Neutrophils % Seg Neuts % (Manual) Lymphocytes % (Manual) Seg Neutrophils # Seg Neutrophils # Man Lymphocytes # (Manual) APTT POC ABG pH ABG pH POC ABG pCO2 POC ABG pO2 ABG pO2 ABG HCO3 ABG Base Excess ABG Hemoglobin VBG pH Oxyhemoglobin Sodium Potassium Chloride Carbon Dioxide BUN 24 H Creatinine Glucose 235 H POC Glucose 243 H Lactic Acid Calcium AST Alkaline Phosphatase CK-MB (CK-2) CK-MB (CK-2) Rel Index Albumin TSH Urine WBC (Auto) Salicylates 01/30/17 01/30/17 01/30/17 11:38 17:58 23:29 WBC RBC Hgb Hct MCV MCH RDW Plt Count Lymph % (Auto) [place] % (Auto) Eos % (Auto) Seg Neutrophils % Seg Neuts % (Manual) Lymphocytes % (Manual) Seg Neutrophils # Seg Neutrophils # Man Lymphocytes # (Manual) APTT POC ABG pH ABG pH POC ABG pCO2 POC ABG pO2 ABG pO2 ABG HCO3 ABG Base Excess ABG Hemoglobin VBG pH Oxyhemoglobin Sodium Potassium Chloride Carbon Dioxide BUN Creatinine Glucose POC Glucose 298 H 208 H 245 H Lactic Acid Calcium AST Alkaline Phosphatase CK-MB (CK-2) CK-MB (CK-2) Rel Index Albumin TSH Urine WBC (Auto) Salicylates 01/31/17 01/31/17 01/31/17 04:39 04:39 05:57 WBC 11.4 H RBC 3.22 L Hgb 8.2 L Hct 24.9 L MCV 78 L MCH 25 L RDW 17.2 H Plt Count 576 H Lymph % (Auto) [place] % (Auto) Eos % (Auto) Seg Neutrophils % Seg Neuts % (Manual) Lymphocytes % (Manual) Seg Neutrophils # Seg Neutrophils # Man Lymphocytes # (Manual) APTT POC ABG pH ABG pH POC ABG pCO2 POC ABG pO2 ABG pO2 ABG HCO3 ABG Base Excess ABG Hemoglobin VBG pH Oxyhemoglobin Sodium Potassium Chloride Carbon Dioxide BUN Creatinine 0.7 L Glucose 223 H POC Glucose 264 H Lactic Acid Calcium AST Alkaline Phosphatase CK-MB (CK-2) CK-MB (CK-2) Rel Index Albumin TSH Urine WBC (Auto) Salicylates 01/31/17 01/31/17 01/31/17 12:23 17:41 18:55 WBC RBC Hgb Hct MCV MCH RDW Plt Count Lymph % (Auto) [place] % (Auto) Eos % (Auto) Seg Neutrophils % Seg Neuts % (Manual) Lymphocytes % (Manual) Seg Neutrophils # Seg Neutrophils # Man Lymphocytes # (Manual) APTT POC ABG pH ABG pH POC ABG pCO2 32.8 L POC ABG pO2 ABG pO2 ABG HCO3 ABG Base Excess ABG Hemoglobin VBG pH Oxyhemoglobin Sodium Potassium Chloride Carbon Dioxide BUN Creatinine Glucose POC Glucose 252 H 208 H Lactic Acid Calcium AST Alkaline Phosphatase CK-MB (CK-2) CK-MB (CK-2) Rel Index Albumin TSH Urine WBC (Auto) Salicylates 01/31/17 02/01/17 02/01/17 22:59 03:38 03:38 WBC RBC 2.81 L Hgb 7.4 L Hct 22.1 L MCV 79 L MCH 27 L RDW 17.0 H Plt Count 540 H Lymph % (Auto) [place] % (Auto) Eos % (Auto) Seg Neutrophils % Seg Neuts % (Manual) Lymphocytes % (Manual) Seg Neutrophils # Seg Neutrophils # Man Lymphocytes # (Manual) APTT POC ABG pH ABG pH POC ABG pCO2 POC ABG pO2 ABG pO2 ABG HCO3 ABG Base Excess ABG Hemoglobin VBG pH Oxyhemoglobin Sodium Potassium Chloride Carbon Dioxide 21 L BUN Creatinine 0.7 L Glucose POC Glucose 40 L Lactic Acid Calcium AST Alkaline Phosphatase CK-MB (CK-2) CK-MB (CK-2) Rel Index Albumin TSH Urine WBC (Auto) Salicylates 02/01/17 02/01/17 02/01/17 05:17 12:19 16:44 WBC RBC Hgb Hct MCV MCH RDW Plt Count Lymph % (Auto) [place] % (Auto) Eos % (Auto) Seg Neutrophils % Seg Neuts % (Manual) Lymphocytes % (Manual) Seg Neutrophils # Seg Neutrophils # Man Lymphocytes # (Manual) APTT POC ABG pH ABG pH POC ABG pCO2 POC ABG pO2 ABG pO2 ABG HCO3 ABG Base Excess ABG Hemoglobin VBG pH Oxyhemoglobin Sodium Potassium Chloride Carbon Dioxide BUN Creatinine Glucose POC Glucose 140 H 213 H 172 H Lactic Acid Calcium AST Alkaline Phosphatase CK-MB (CK-2) CK-MB (CK-2) Rel Index Albumin TSH Urine WBC (Auto) Salicylates 02/01/17 02/02/17 02/02/17 23:59 05:14 11:24 WBC RBC Hgb Hct MCV MCH RDW Plt Count Lymph % (Auto) [place] % (Auto) Eos % (Auto) Seg Neutrophils % Seg Neuts % (Manual) Lymphocytes % (Manual) Seg Neutrophils # Seg Neutrophils # Man Lymphocytes # (Manual) APTT POC ABG pH ABG pH POC ABG pCO2 POC ABG pO2 ABG pO2 ABG HCO3 ABG Base Excess ABG Hemoglobin VBG pH Oxyhemoglobin Sodium Potassium Chloride Carbon Dioxide BUN Creatinine Glucose POC Glucose 181 H 194 H 209 H Lactic Acid Calcium AST Alkaline Phosphatase CK-MB (CK-2) CK-MB (CK-2) Rel Index Albumin TSH Urine WBC (Auto) Salicylates 02/02/17 02/02/17 02/02/17 11:46 11:46 17:47 WBC RBC 2.94 L Hgb 7.5 L Hct 23.0 L MCV 78 L MCH 25 L RDW 16.9 H Plt Count 520 H Lymph % (Auto) [place] % (Auto) Eos % (Auto) Seg Neutrophils % Seg Neuts % (Manual) Lymphocytes % (Manual) Seg Neutrophils # Seg Neutrophils # Man Lymphocytes # (Manual) APTT POC ABG pH ABG pH POC ABG pCO2 POC ABG pO2 ABG pO2 ABG HCO3 ABG Base Excess ABG Hemoglobin VBG pH Oxyhemoglobin Sodium Potassium Chloride Carbon Dioxide BUN Creatinine 0.6 L Glucose 189 H POC Glucose 147 H Lactic Acid Calcium 8.1 L AST Alkaline Phosphatase CK-MB (CK-2) CK-MB (CK-2) Rel Index Albumin TSH Urine WBC (Auto) Salicylates 02/02/17 02/03/17 02/03/17 23:32 05:53 11:19 WBC RBC Hgb Hct MCV MCH RDW Plt Count Lymph % (Auto) [place] % (Auto) Eos % (Auto) Seg Neutrophils % Seg Neuts % (Manual) Lymphocytes % (Manual) Seg Neutrophils # Seg Neutrophils # Man Lymphocytes # (Manual) APTT POC ABG pH ABG pH POC ABG pCO2 POC ABG pO2 ABG pO2 ABG HCO3 ABG Base Excess ABG Hemoglobin VBG pH Oxyhemoglobin Sodium Potassium Chloride Carbon Dioxide BUN Creatinine Glucose POC Glucose 176 H 224 H 228 H Lactic Acid Calcium AST Alkaline Phosphatase CK-MB (CK-2) CK-MB (CK-2) Rel Index Albumin TSH Urine WBC (Auto) Salicylates 02/03/17 02/03/17 02/04/17 16:59 23:38 05:45 WBC RBC Hgb Hct MCV MCH RDW Plt Count Lymph % (Auto) [place] % (Auto) Eos % (Auto) Seg Neutrophils % Seg Neuts % (Manual) Lymphocytes % (Manual) Seg Neutrophils # Seg Neutrophils # Man Lymphocytes # (Manual) APTT POC ABG pH ABG pH POC ABG pCO2 POC ABG pO2 ABG pO2 ABG HCO3 ABG Base Excess ABG Hemoglobin VBG pH Oxyhemoglobin Sodium Potassium Chloride Carbon Dioxide BUN Creatinine Glucose POC Glucose 189 H 191 H 251 H Lactic Acid Calcium AST Alkaline Phosphatase CK-MB (CK-2) CK-MB (CK-2) Rel Index Albumin TSH Urine WBC (Auto) Salicylates 02/04/17 02/04/17 02/05/17 11:20 17:20 00:17 WBC RBC Hgb Hct MCV MCH RDW Plt Count Lymph % (Auto) [place] % (Auto) Eos % (Auto) Seg Neutrophils % Seg Neuts % (Manual) Lymphocytes % (Manual) Seg Neutrophils # Seg Neutrophils # Man Lymphocytes # (Manual) APTT POC ABG pH ABG pH POC ABG pCO2 POC ABG pO2 ABG pO2 ABG HCO3 ABG Base Excess ABG Hemoglobin VBG pH Oxyhemoglobin Sodium Potassium Chloride Carbon Dioxide BUN Creatinine Glucose POC Glucose 243 H 163 H 200 H Lactic Acid Calcium AST Alkaline Phosphatase CK-MB (CK-2) CK-MB (CK-2) Rel Index Albumin TSH Urine WBC (Auto) Salicylates 02/05/17 02/05/17 02/05/17 05:38 12:38 16:29 WBC RBC Hgb Hct MCV MCH RDW Plt Count Lymph % (Auto) [place] % (Auto) Eos % (Auto) Seg Neutrophils % Seg Neuts % (Manual) Lymphocytes % (Manual) Seg Neutrophils # Seg Neutrophils # Man Lymphocytes # (Manual) APTT POC ABG pH ABG pH POC ABG pCO2 POC ABG pO2 ABG pO2 ABG HCO3 ABG Base Excess ABG Hemoglobin VBG pH Oxyhemoglobin Sodium Potassium Chloride Carbon Dioxide BUN Creatinine Glucose POC Glucose 248 H 241 H 257 H Lactic Acid Calcium AST Alkaline Phosphatase CK-MB (CK-2) CK-MB (CK-2) Rel Index Albumin TSH Urine WBC (Auto) Salicylates 02/05/17 02/06/17 02/06/17 23:56 05:30 11:50 WBC RBC Hgb Hct MCV MCH RDW Plt Count Lymph % (Auto) [place] % (Auto) Eos % (Auto) Seg Neutrophils % Seg Neuts % (Manual) Lymphocytes % (Manual) Seg Neutrophils # Seg Neutrophils # Man Lymphocytes # (Manual) APTT POC ABG pH ABG pH POC ABG pCO2 POC ABG pO2 ABG pO2 ABG HCO3 ABG Base Excess ABG Hemoglobin VBG pH Oxyhemoglobin Sodium Potassium Chloride Carbon Dioxide BUN Creatinine Glucose POC Glucose 258 H 120 H 254 H Lactic Acid Calcium AST Alkaline Phosphatase CK-MB (CK-2) CK-MB (CK-2) Rel Index Albumin TSH Urine WBC (Auto) Salicylates 02/06/17 02/06/17 02/07/17 17:11 23:50 05:22 WBC RBC Hgb Hct MCV MCH RDW Plt Count Lymph % (Auto) [place] % (Auto) Eos % (Auto) Seg Neutrophils % Seg Neuts % (Manual) Lymphocytes % (Manual) Seg Neutrophils # Seg Neutrophils # Man Lymphocytes # (Manual) APTT POC ABG pH ABG pH POC ABG pCO2 POC ABG pO2 ABG pO2 ABG HCO3 ABG Base Excess ABG Hemoglobin VBG pH Oxyhemoglobin Sodium Potassium Chloride Carbon Dioxide BUN Creatinine Glucose POC Glucose 149 H 240 H 258 H Lactic Acid Calcium AST Alkaline Phosphatase CK-MB (CK-2) CK-MB (CK-2) Rel Index Albumin TSH Urine WBC (Auto) Salicylates 02/07/17 02/07/17 02/07/17 11:15 18:33 23:59 WBC RBC Hgb Hct MCV MCH RDW Plt Count Lymph % (Auto) [place] % (Auto) Eos % (Auto) Seg Neutrophils % Seg Neuts % (Manual) Lymphocytes % (Manual) Seg Neutrophils # Seg Neutrophils # Man Lymphocytes # (Manual) APTT POC ABG pH ABG pH POC ABG pCO2 POC ABG pO2 ABG pO2 ABG HCO3 ABG Base Excess ABG Hemoglobin VBG pH Oxyhemoglobin Sodium Potassium Chloride Carbon Dioxide BUN Creatinine Glucose POC Glucose 239 H 176 H 186 H Lactic Acid Calcium AST Alkaline Phosphatase CK-MB (CK-2) CK-MB (CK-2) Rel Index Albumin TSH Urine WBC (Auto) Salicylates 02/08/17 02/08/17 02/08/17 06:15 11:55 16:55 WBC RBC Hgb Hct MCV MCH RDW Plt Count Lymph % (Auto) [place] % (Auto) Eos % (Auto) Seg Neutrophils % Seg Neuts % (Manual) Lymphocytes % (Manual) Seg Neutrophils # Seg Neutrophils # Man Lymphocytes # (Manual) APTT POC ABG pH ABG pH POC ABG pCO2 POC ABG pO2 ABG pO2 ABG HCO3 ABG Base Excess ABG Hemoglobin VBG pH Oxyhemoglobin Sodium Potassium Chloride Carbon Dioxide BUN Creatinine Glucose POC Glucose 195 H 129 H 246 H Lactic Acid Calcium AST Alkaline Phosphatase CK-MB (CK-2) CK-MB (CK-2) Rel Index Albumin TSH Urine WBC (Auto) Salicylates 02/08/17 02/09/17 02/09/17 23:51 05:51 07:24 WBC 14.7 H RBC 3.39 L Hgb 8.9 L Hct 26.4 L MCV 78 L MCH 26 L RDW 18.4 H Plt Count 670 H Lymph % (Auto) 11.8 L [place] % (Auto) Eos % (Auto) Seg Neutrophils % 81.2 H Seg Neuts % (Manual) Lymphocytes % (Manual) Seg Neutrophils # 11.9 H Seg Neutrophils # Man Lymphocytes # (Manual) APTT POC ABG pH ABG pH POC ABG pCO2 POC ABG pO2 ABG pO2 ABG HCO3 ABG Base Excess ABG Hemoglobin VBG pH Oxyhemoglobin Sodium Potassium Chloride Carbon Dioxide BUN Creatinine Glucose POC Glucose 262 H 295 H Lactic Acid Calcium AST Alkaline Phosphatase CK-MB (CK-2) CK-MB (CK-2) Rel Index Albumin TSH Urine WBC (Auto) Salicylates 02/09/17 02/09/17 02/09/17 07:24 12:08 18:39 WBC RBC Hgb Hct MCV MCH RDW Plt Count Lymph % (Auto) [place] % (Auto) Eos % (Auto) Seg Neutrophils % Seg Neuts % (Manual) Lymphocytes % (Manual) Seg Neutrophils # Seg Neutrophils # Man Lymphocytes # (Manual) APTT POC ABG pH ABG pH POC ABG pCO2 POC ABG pO2 ABG pO2 ABG HCO3 ABG Base Excess ABG Hemoglobin VBG pH Oxyhemoglobin Sodium Potassium Chloride 95.5 L Carbon Dioxide BUN 52 H Creatinine Glucose 277 H POC Glucose 236 H 151 H Lactic Acid Calcium AST Alkaline Phosphatase CK-MB (CK-2) CK-MB (CK-2) Rel Index Albumin TSH Urine WBC (Auto) Salicylates 02/10/17 02/10/17 02/10/17 00:01 05:44 11:21 WBC RBC Hgb Hct MCV MCH RDW Plt Count Lymph % (Auto) [place] % (Auto) Eos % (Auto) Seg Neutrophils % Seg Neuts % (Manual) Lymphocytes % (Manual) Seg Neutrophils # Seg Neutrophils # Man Lymphocytes # (Manual) APTT POC ABG pH ABG pH POC ABG pCO2 POC ABG pO2 ABG pO2 ABG HCO3 ABG Base Excess ABG Hemoglobin VBG pH Oxyhemoglobin Sodium Potassium Chloride Carbon Dioxide BUN Creatinine Glucose POC Glucose 210 H 201 H 233 H Lactic Acid Calcium AST Alkaline Phosphatase CK-MB (CK-2) CK-MB (CK-2) Rel Index Albumin TSH Urine WBC (Auto) Salicylates 02/10/17 02/10/17 02/11/17 17:29 23:56 05:24 WBC RBC Hgb Hct MCV MCH RDW Plt Count Lymph % (Auto) [place] % (Auto) Eos % (Auto) Seg Neutrophils % Seg Neuts % (Manual) Lymphocytes % (Manual) Seg Neutrophils # Seg Neutrophils # Man Lymphocytes # (Manual) APTT POC ABG pH ABG pH POC ABG pCO2 POC ABG pO2 ABG pO2 ABG HCO3 ABG Base Excess ABG Hemoglobin VBG pH Oxyhemoglobin Sodium Potassium Chloride Carbon Dioxide BUN Creatinine Glucose POC Glucose 167 H 191 H 135 H Lactic Acid Calcium AST Alkaline Phosphatase CK-MB (CK-2) CK-MB (CK-2) Rel Index Albumin TSH Urine WBC (Auto) Salicylates 02/11/17 02/11/17 02/11/17 12:25 17:03 23:59 WBC RBC Hgb Hct MCV MCH RDW Plt Count Lymph % (Auto) [place] % (Auto) Eos % (Auto) Seg Neutrophils % Seg Neuts % (Manual) Lymphocytes % (Manual) Seg Neutrophils # Seg Neutrophils # Man Lymphocytes # (Manual) APTT POC ABG pH ABG pH POC ABG pCO2 POC ABG pO2 ABG pO2 ABG HCO3 ABG Base Excess ABG Hemoglobin VBG pH Oxyhemoglobin Sodium Potassium Chloride Carbon Dioxide BUN Creatinine Glucose POC Glucose 275 H 172 H 215 H Lactic Acid Calcium AST Alkaline Phosphatase CK-MB (CK-2) CK-MB (CK-2) Rel Index Albumin TSH Urine WBC (Auto) Salicylates 02/12/17 02/12/17 02/12/17 05:39 11:33 17:55 WBC RBC Hgb Hct MCV MCH RDW Plt Count Lymph % (Auto) [place] % (Auto) Eos % (Auto) Seg Neutrophils % Seg Neuts % (Manual) Lymphocytes % (Manual) Seg Neutrophils # Seg Neutrophils # Man Lymphocytes # (Manual) APTT POC ABG pH ABG pH POC ABG pCO2 POC ABG pO2 ABG pO2 ABG HCO3 ABG Base Excess ABG Hemoglobin VBG pH Oxyhemoglobin Sodium Potassium Chloride Carbon Dioxide BUN Creatinine Glucose POC Glucose 261 H 217 H 172 H Lactic Acid Calcium AST Alkaline Phosphatase CK-MB (CK-2) CK-MB (CK-2) Rel Index Albumin TSH Urine WBC (Auto) Salicylates 02/13/17 02/13/17 02/13/17 00:25 06:46 11:26 WBC RBC Hgb Hct MCV MCH RDW Plt Count Lymph % (Auto) [place] % (Auto) Eos % (Auto) Seg Neutrophils % Seg Neuts % (Manual) Lymphocytes % (Manual) Seg Neutrophils # Seg Neutrophils # Man Lymphocytes # (Manual) APTT POC ABG pH ABG pH POC ABG pCO2 POC ABG pO2 ABG pO2 ABG HCO3 ABG Base Excess ABG Hemoglobin VBG pH Oxyhemoglobin Sodium Potassium Chloride Carbon Dioxide BUN Creatinine Glucose POC Glucose 207 H 219 H 231 H Lactic Acid Calcium AST Alkaline Phosphatase CK-MB (CK-2) CK-MB (CK-2) Rel Index Albumin TSH Urine WBC (Auto) Salicylates 02/13/17 02/13/17 02/14/17 17:12 23:44 05:44 WBC RBC Hgb Hct MCV MCH RDW Plt Count Lymph % (Auto) [place] % (Auto) Eos % (Auto) Seg Neutrophils % Seg Neuts % (Manual) Lymphocytes % (Manual) Seg Neutrophils # Seg Neutrophils # Man Lymphocytes # (Manual) APTT POC ABG pH ABG pH POC ABG pCO2 POC ABG pO2 ABG pO2 ABG HCO3 ABG Base Excess ABG Hemoglobin VBG pH Oxyhemoglobin Sodium Potassium Chloride Carbon Dioxide BUN Creatinine Glucose POC Glucose 190 H 256 H 184 H Lactic Acid Calcium AST Alkaline Phosphatase CK-MB (CK-2) CK-MB (CK-2) Rel Index Albumin TSH Urine WBC (Auto) Salicylates 02/14/17 02/14/17 02/14/17 12:21 17:57 23:18 WBC RBC Hgb Hct MCV MCH RDW Plt Count Lymph % (Auto) [place] % (Auto) Eos % (Auto) Seg Neutrophils % Seg Neuts % (Manual) Lymphocytes % (Manual) Seg Neutrophils # Seg Neutrophils # Man Lymphocytes # (Manual) APTT POC ABG pH ABG pH POC ABG pCO2 POC ABG pO2 ABG pO2 ABG HCO3 ABG Base Excess ABG Hemoglobin VBG pH Oxyhemoglobin Sodium Potassium Chloride Carbon Dioxide BUN Creatinine Glucose POC Glucose 233 H 155 H 165 H Lactic Acid Calcium AST Alkaline Phosphatase CK-MB (CK-2) CK-MB (CK-2) Rel Index Albumin TSH Urine WBC (Auto) Salicylates 02/15/17 02/15/17 02/15/17 05:33 11:45 17:20 WBC RBC Hgb Hct MCV MCH RDW Plt Count Lymph % (Auto) [place] % (Auto) Eos % (Auto) Seg Neutrophils % Seg Neuts % (Manual) Lymphocytes % (Manual) Seg Neutrophils # Seg Neutrophils # Man Lymphocytes # (Manual) APTT POC ABG pH ABG pH POC ABG pCO2 POC ABG pO2 ABG pO2 ABG HCO3 ABG Base Excess ABG Hemoglobin VBG pH Oxyhemoglobin Sodium Potassium Chloride Carbon Dioxide BUN Creatinine Glucose POC Glucose 239 H 130 H 189 H Lactic Acid Calcium AST Alkaline Phosphatase CK-MB (CK-2) CK-MB (CK-2) Rel Index Albumin TSH Urine WBC (Auto) Salicylates 02/16/17 02/16/17 02/16/17 00:14 05:09 12:31 WBC RBC Hgb Hct MCV MCH RDW Plt Count Lymph % (Auto) [place] % (Auto) Eos % (Auto) Seg Neutrophils % Seg Neuts % (Manual) Lymphocytes % (Manual) Seg Neutrophils # Seg Neutrophils # Man Lymphocytes # (Manual) APTT POC ABG pH ABG pH POC ABG pCO2 POC ABG pO2 ABG pO2 ABG HCO3 ABG Base Excess ABG Hemoglobin VBG pH Oxyhemoglobin Sodium Potassium Chloride Carbon Dioxide BUN Creatinine Glucose POC Glucose 197 H 226 H 178 H Lactic Acid Calcium AST Alkaline Phosphatase CK-MB (CK-2) CK-MB (CK-2) Rel Index Albumin TSH Urine WBC (Auto) Salicylates 02/16/17 02/16/17 02/17/17 16:35 23:49 05:37 WBC RBC Hgb Hct MCV MCH RDW Plt Count Lymph % (Auto) [place] % (Auto) Eos % (Auto) Seg Neutrophils % Seg Neuts % (Manual) Lymphocytes % (Manual) Seg Neutrophils # Seg Neutrophils # Man Lymphocytes # (Manual) APTT POC ABG pH ABG pH POC ABG pCO2 POC ABG pO2 ABG pO2 ABG HCO3 ABG Base Excess ABG Hemoglobin VBG pH Oxyhemoglobin Sodium Potassium Chloride Carbon Dioxide BUN Creatinine Glucose POC Glucose 174 H 62 L 153 H Lactic Acid Calcium AST Alkaline Phosphatase CK-MB (CK-2) CK-MB (CK-2) Rel Index Albumin TSH Urine WBC (Auto) Salicylates 02/17/17 02/17/17 02/17/17 11:39 17:02 22:24 WBC RBC Hgb Hct MCV MCH RDW Plt Count Lymph % (Auto) [place] % (Auto) Eos % (Auto) Seg Neutrophils % Seg Neuts % (Manual) Lymphocytes % (Manual) Seg Neutrophils # Seg Neutrophils # Man Lymphocytes # (Manual) APTT POC ABG pH ABG pH POC ABG pCO2 POC ABG pO2 ABG pO2 ABG HCO3 ABG Base Excess ABG Hemoglobin VBG pH Oxyhemoglobin Sodium Potassium Chloride Carbon Dioxide BUN Creatinine Glucose POC Glucose 231 H 112 H 116 H Lactic Acid Calcium AST Alkaline Phosphatase CK-MB (CK-2) CK-MB (CK-2) Rel Index Albumin TSH Urine WBC (Auto) Salicylates 02/18/17 02/19/17 02/19/17 15:34 05:09 07:57 WBC RBC Hgb Hct MCV MCH RDW Plt Count Lymph % (Auto) [place] % (Auto) Eos % (Auto) Seg Neutrophils % Seg Neuts % (Manual) Lymphocytes % (Manual) Seg Neutrophils # Seg Neutrophils # Man Lymphocytes # (Manual) APTT POC ABG pH ABG pH POC ABG pCO2 POC ABG pO2 ABG pO2 ABG HCO3 ABG Base Excess ABG Hemoglobin VBG pH Oxyhemoglobin Sodium Potassium Chloride Carbon Dioxide BUN Creatinine Glucose POC Glucose 215 H 218 H 283 H Lactic Acid Calcium AST Alkaline Phosphatase CK-MB (CK-2) CK-MB (CK-2) Rel Index Albumin TSH Urine WBC (Auto) Salicylates 02/19/17 02/19/17 02/20/17 14:49 22:10 05:10 WBC RBC Hgb Hct MCV MCH RDW Plt Count Lymph % (Auto) [place] % (Auto) Eos % (Auto) Seg Neutrophils % Seg Neuts % (Manual) Lymphocytes % (Manual) Seg Neutrophils # Seg Neutrophils # Man Lymphocytes # (Manual) APTT POC ABG pH ABG pH POC ABG pCO2 POC ABG pO2 ABG pO2 ABG HCO3 ABG Base Excess ABG Hemoglobin VBG pH Oxyhemoglobin Sodium Potassium Chloride Carbon Dioxide BUN Creatinine Glucose POC Glucose 290 H 169 H 209 H Lactic Acid Calcium AST Alkaline Phosphatase CK-MB (CK-2) CK-MB (CK-2) Rel Index Albumin TSH Urine WBC (Auto) Salicylates 02/20/17 02/20/17 02/21/17 15:05 21:52 02:00 WBC RBC Hgb Hct MCV MCH RDW Plt Count Lymph % (Auto) [place] % (Auto) Eos % (Auto) Seg Neutrophils % Seg Neuts % (Manual) Lymphocytes % (Manual) Seg Neutrophils # Seg Neutrophils # Man Lymphocytes # (Manual) APTT POC ABG pH ABG pH POC ABG pCO2 POC ABG pO2 ABG pO2 ABG HCO3 ABG Base Excess ABG Hemoglobin VBG pH Oxyhemoglobin Sodium Potassium Chloride Carbon Dioxide BUN Creatinine Glucose POC Glucose 172 H 209 H 216 H Lactic Acid Calcium AST Alkaline Phosphatase CK-MB (CK-2) CK-MB (CK-2) Rel Index Albumin TSH Urine WBC (Auto) Salicylates 02/21/17 02/21/17 02/21/17 04:54 14:43 17:47 WBC RBC Hgb Hct MCV MCH RDW Plt Count Lymph % (Auto) [place] % (Auto) Eos % (Auto) Seg Neutrophils % Seg Neuts % (Manual) Lymphocytes % (Manual) Seg Neutrophils # Seg Neutrophils # Man Lymphocytes # (Manual) APTT POC ABG pH ABG pH POC ABG pCO2 POC ABG pO2 ABG pO2 ABG HCO3 ABG Base Excess ABG Hemoglobin VBG pH Oxyhemoglobin Sodium Potassium Chloride Carbon Dioxide BUN Creatinine Glucose POC Glucose 227 H 290 H 220 H Lactic Acid Calcium AST Alkaline Phosphatase CK-MB (CK-2) CK-MB (CK-2) Rel Index Albumin TSH Urine WBC (Auto) Salicylates 02/21/17 02/22/17 02/22/17 22:02 04:52 15:25 WBC RBC Hgb Hct MCV MCH RDW Plt Count Lymph % (Auto) [place] % (Auto) Eos % (Auto) Seg Neutrophils % Seg Neuts % (Manual) Lymphocytes % (Manual) Seg Neutrophils # Seg Neutrophils # Man Lymphocytes # (Manual) APTT POC ABG pH ABG pH POC ABG pCO2 POC ABG pO2 ABG pO2 ABG HCO3 ABG Base Excess ABG Hemoglobin VBG pH Oxyhemoglobin Sodium Potassium Chloride Carbon Dioxide BUN Creatinine Glucose POC Glucose 246 H 212 H 236 H Lactic Acid Calcium AST Alkaline Phosphatase CK-MB (CK-2) CK-MB (CK-2) Rel Index Albumin TSH Urine WBC (Auto) Salicylates 02/22/17 02/23/17 02/23/17 21:33 06:04 10:00 WBC RBC Hgb Hct MCV MCH RDW Plt Count Lymph % (Auto) [place] % (Auto) Eos % (Auto) Seg Neutrophils % Seg Neuts % (Manual) Lymphocytes % (Manual) Seg Neutrophils # Seg Neutrophils # Man Lymphocytes # (Manual) APTT POC ABG pH ABG pH POC ABG pCO2 POC ABG pO2 ABG pO2 ABG HCO3 ABG Base Excess ABG Hemoglobin VBG pH Oxyhemoglobin Sodium Potassium Chloride Carbon Dioxide BUN Creatinine Glucose POC Glucose 255 H 208 H 174 H Lactic Acid Calcium AST Alkaline Phosphatase CK-MB (CK-2) CK-MB (CK-2) Rel Index Albumin TSH Urine WBC (Auto) Salicylates 02/23/17 02/23/17 02/23/17 12:52 17:15 21:51 WBC RBC Hgb Hct MCV MCH RDW Plt Count Lymph % (Auto) [place] % (Auto) Eos % (Auto) Seg Neutrophils % Seg Neuts % (Manual) Lymphocytes % (Manual) Seg Neutrophils # Seg Neutrophils # Man Lymphocytes # (Manual) APTT POC ABG pH ABG pH POC ABG pCO2 POC ABG pO2 ABG pO2 ABG HCO3 ABG Base Excess ABG Hemoglobin VBG pH Oxyhemoglobin Sodium Potassium Chloride Carbon Dioxide BUN Creatinine Glucose POC Glucose 203 H 269 H 205 H Lactic Acid Calcium AST Alkaline Phosphatase CK-MB (CK-2) CK-MB (CK-2) Rel Index Albumin TSH Urine WBC (Auto) Salicylates 02/24/17 02/24/17 02/24/17 10:23 17:45 21:24 WBC RBC Hgb Hct MCV MCH RDW Plt Count Lymph % (Auto) [place] % (Auto) Eos % (Auto) Seg Neutrophils % Seg Neuts % (Manual) Lymphocytes % (Manual) Seg Neutrophils # Seg Neutrophils # Man Lymphocytes # (Manual) APTT POC ABG pH ABG pH POC ABG pCO2 POC ABG pO2 ABG pO2 ABG HCO3 ABG Base Excess ABG Hemoglobin VBG pH Oxyhemoglobin Sodium Potassium Chloride Carbon Dioxide BUN Creatinine Glucose POC Glucose 280 H 239 H 254 H Lactic Acid Calcium AST Alkaline Phosphatase CK-MB (CK-2) CK-MB (CK-2) Rel Index Albumin TSH Urine WBC (Auto) Salicylates 02/25/17 02/25/17 02/25/17 02:12 05:17 14:32 WBC RBC Hgb Hct MCV MCH RDW Plt Count Lymph % (Auto) [place] % (Auto) Eos % (Auto) Seg Neutrophils % Seg Neuts % (Manual) Lymphocytes % (Manual) Seg Neutrophils # Seg Neutrophils # Man Lymphocytes # (Manual) APTT POC ABG pH ABG pH POC ABG pCO2 POC ABG pO2 ABG pO2 ABG HCO3 ABG Base Excess ABG Hemoglobin VBG pH Oxyhemoglobin Sodium Potassium Chloride Carbon Dioxide BUN Creatinine Glucose POC Glucose 296 H 332 H 353 H Lactic Acid Calcium AST Alkaline Phosphatase CK-MB (CK-2) CK-MB (CK-2) Rel Index Albumin TSH Urine WBC (Auto) Salicylates 02/25/17 02/26/17 02/26/17 22:14 00:37 05:52 WBC RBC Hgb Hct MCV MCH RDW Plt Count Lymph % (Auto) [place] % (Auto) Eos % (Auto) Seg Neutrophils % Seg Neuts % (Manual) Lymphocytes % (Manual) Seg Neutrophils # Seg Neutrophils # Man Lymphocytes # (Manual) APTT POC ABG pH ABG pH POC ABG pCO2 POC ABG pO2 ABG pO2 ABG HCO3 ABG Base Excess ABG Hemoglobin VBG pH Oxyhemoglobin Sodium Potassium Chloride Carbon Dioxide BUN Creatinine Glucose POC Glucose 201 H 233 H 269 H Lactic Acid Calcium AST Alkaline Phosphatase CK-MB (CK-2) CK-MB (CK-2) Rel Index Albumin TSH Urine WBC (Auto) Salicylates 02/26/17 02/26/17 02/26/17 11:48 13:49 21:26 WBC RBC Hgb Hct MCV MCH RDW Plt Count Lymph % (Auto) [place] % (Auto) Eos % (Auto) Seg Neutrophils % Seg Neuts % (Manual) Lymphocytes % (Manual) Seg Neutrophils # Seg Neutrophils # Man Lymphocytes # (Manual) APTT POC ABG pH ABG pH POC ABG pCO2 POC ABG pO2 ABG pO2 ABG HCO3 ABG Base Excess ABG Hemoglobin VBG pH Oxyhemoglobin Sodium Potassium Chloride Carbon Dioxide BUN Creatinine Glucose POC Glucose 333 H 322 H 244 H Lactic Acid Calcium AST Alkaline Phosphatase CK-MB (CK-2) CK-MB (CK-2) Rel Index Albumin TSH Urine WBC (Auto) Salicylates 02/27/17 02/27/17 02/27/17 05:27 13:51 21:48 WBC RBC Hgb Hct MCV MCH RDW Plt Count Lymph % (Auto) [place] % (Auto) Eos % (Auto) Seg Neutrophils % Seg Neuts % (Manual) Lymphocytes % (Manual) Seg Neutrophils # Seg Neutrophils # Man Lymphocytes # (Manual) APTT POC ABG pH ABG pH POC ABG pCO2 POC ABG pO2 ABG pO2 ABG HCO3 ABG Base Excess ABG Hemoglobin VBG pH Oxyhemoglobin Sodium Potassium Chloride Carbon Dioxide BUN Creatinine Glucose POC Glucose 217 H 239 H 254 H Lactic Acid Calcium AST Alkaline Phosphatase CK-MB (CK-2) CK-MB (CK-2) Rel Index Albumin TSH Urine WBC (Auto) Salicylates 02/28/17 02/28/17 02/28/17 05:38 11:00 19:44 WBC RBC Hgb Hct MCV MCH RDW Plt Count Lymph % (Auto) [place] % (Auto) Eos % (Auto) Seg Neutrophils % Seg Neuts % (Manual) Lymphocytes % (Manual) Seg Neutrophils # Seg Neutrophils # Man Lymphocytes # (Manual) APTT POC ABG pH ABG pH POC ABG pCO2 POC ABG pO2 ABG pO2 ABG HCO3 ABG Base Excess ABG Hemoglobin VBG pH Oxyhemoglobin Sodium Potassium Chloride Carbon Dioxide BUN Creatinine Glucose POC Glucose 325 H 203 H 116 H Lactic Acid Calcium AST Alkaline Phosphatase CK-MB (CK-2) CK-MB (CK-2) Rel Index Albumin TSH Urine WBC (Auto) Salicylates 03/01/17 03/01/17 03/01/17 00:08 05:31 12:17 WBC RBC Hgb Hct MCV MCH RDW Plt Count Lymph % (Auto) [place] % (Auto) Eos % (Auto) Seg Neutrophils % Seg Neuts % (Manual) Lymphocytes % (Manual) Seg Neutrophils # Seg Neutrophils # Man Lymphocytes # (Manual) APTT POC ABG pH ABG pH POC ABG pCO2 POC ABG pO2 ABG pO2 ABG HCO3 ABG Base Excess ABG Hemoglobin VBG pH Oxyhemoglobin Sodium Potassium Chloride Carbon Dioxide BUN Creatinine Glucose POC Glucose 202 H 183 H 184 H Lactic Acid Calcium AST Alkaline Phosphatase CK-MB (CK-2) CK-MB (CK-2) Rel Index Albumin TSH Urine WBC (Auto) Salicylates 03/02/17 03/02/17 03/02/17 00:12 05:58 18:22 WBC RBC Hgb Hct MCV MCH RDW Plt Count Lymph % (Auto) [place] % (Auto) Eos % (Auto) Seg Neutrophils % Seg Neuts % (Manual) Lymphocytes % (Manual) Seg Neutrophils # Seg Neutrophils # Man Lymphocytes # (Manual) APTT POC ABG pH ABG pH POC ABG pCO2 POC ABG pO2 ABG pO2 ABG HCO3 ABG Base Excess ABG Hemoglobin VBG pH Oxyhemoglobin Sodium Potassium Chloride Carbon Dioxide BUN Creatinine Glucose POC Glucose 117 H 176 H 156 H Lactic Acid Calcium AST Alkaline Phosphatase CK-MB (CK-2) CK-MB (CK-2) Rel Index Albumin TSH Urine WBC (Auto) Salicylates 03/02/17 03/03/17 03/03/17 23:51 05:44 11:32 WBC RBC Hgb Hct MCV MCH RDW Plt Count Lymph % (Auto) [place] % (Auto) Eos % (Auto) Seg Neutrophils % Seg Neuts % (Manual) Lymphocytes % (Manual) Seg Neutrophils # Seg Neutrophils # Man Lymphocytes # (Manual) APTT POC ABG pH ABG pH POC ABG pCO2 POC ABG pO2 ABG pO2 ABG HCO3 ABG Base Excess ABG Hemoglobin VBG pH Oxyhemoglobin Sodium Potassium Chloride Carbon Dioxide BUN Creatinine Glucose POC Glucose 211 H 117 H 133 H Lactic Acid Calcium AST Alkaline Phosphatase CK-MB (CK-2) CK-MB (CK-2) Rel Index Albumin TSH Urine WBC (Auto) Salicylates 03/03/17 03/03/17 03/04/17 17:43 23:17 05:30 WBC RBC Hgb Hct MCV MCH RDW Plt Count Lymph % (Auto) [place] % (Auto) Eos % (Auto) Seg Neutrophils % Seg Neuts % (Manual) Lymphocytes % (Manual) Seg Neutrophils # Seg Neutrophils # Man Lymphocytes # (Manual) APTT POC ABG pH ABG pH POC ABG pCO2 POC ABG pO2 ABG pO2 ABG HCO3 ABG Base Excess ABG Hemoglobin VBG pH Oxyhemoglobin Sodium Potassium Chloride Carbon Dioxide BUN Creatinine Glucose POC Glucose 206 H 170 H 126 H Lactic Acid Calcium AST Alkaline Phosphatase CK-MB (CK-2) CK-MB (CK-2) Rel Index Albumin TSH Urine WBC (Auto) Salicylates 03/04/17 03/04/17 03/05/17 12:17 17:27 05:20 WBC RBC Hgb Hct MCV MCH RDW Plt Count Lymph % (Auto) [place] % (Auto) Eos % (Auto) Seg Neutrophils % Seg Neuts % (Manual) Lymphocytes % (Manual) Seg Neutrophils # Seg Neutrophils # Man Lymphocytes # (Manual) APTT POC ABG pH ABG pH POC ABG pCO2 POC ABG pO2 ABG pO2 ABG HCO3 ABG Base Excess ABG Hemoglobin VBG pH Oxyhemoglobin Sodium Potassium Chloride Carbon Dioxide BUN Creatinine Glucose POC Glucose 135 H 121 H 185 H Lactic Acid Calcium AST Alkaline Phosphatase CK-MB (CK-2) CK-MB (CK-2) Rel Index Albumin TSH Urine WBC (Auto) Salicylates 03/05/17 03/06/17 03/06/17 11:50 11:52 17:34 WBC RBC Hgb Hct MCV MCH RDW Plt Count Lymph % (Auto) [place] % (Auto) Eos % (Auto) Seg Neutrophils % Seg Neuts % (Manual) Lymphocytes % (Manual) Seg Neutrophils # Seg Neutrophils # Man Lymphocytes # (Manual) APTT POC ABG pH ABG pH POC ABG pCO2 POC ABG pO2 ABG pO2 ABG HCO3 ABG Base Excess ABG Hemoglobin VBG pH Oxyhemoglobin Sodium Potassium Chloride Carbon Dioxide BUN Creatinine Glucose POC Glucose 116 H 133 H 181 H Lactic Acid Calcium AST Alkaline Phosphatase CK-MB (CK-2) CK-MB (CK-2) Rel Index Albumin TSH Urine WBC (Auto) Salicylates 03/07/17 03/07/17 03/07/17 05:21 11:36 17:49 WBC RBC Hgb Hct MCV MCH RDW Plt Count Lymph % (Auto) [place] % (Auto) Eos % (Auto) Seg Neutrophils % Seg Neuts % (Manual) Lymphocytes % (Manual) Seg Neutrophils # Seg Neutrophils # Man Lymphocytes # (Manual) APTT POC ABG pH ABG pH POC ABG pCO2 POC ABG pO2 ABG pO2 ABG HCO3 ABG Base Excess ABG Hemoglobin VBG pH Oxyhemoglobin Sodium Potassium Chloride Carbon Dioxide BUN Creatinine Glucose POC Glucose 159 H 137 H 158 H Lactic Acid Calcium AST Alkaline Phosphatase CK-MB (CK-2) CK-MB (CK-2) Rel Index Albumin TSH Urine WBC (Auto) Salicylates 03/08/17 03/08/17 03/08/17 05:51 13:58 23:50 WBC RBC Hgb Hct MCV MCH RDW Plt Count Lymph % (Auto) [place] % (Auto) Eos % (Auto) Seg Neutrophils % Seg Neuts % (Manual) Lymphocytes % (Manual) Seg Neutrophils # Seg Neutrophils # Man Lymphocytes # (Manual) APTT POC ABG pH ABG pH POC ABG pCO2 POC ABG pO2 ABG pO2 ABG HCO3 ABG Base Excess ABG Hemoglobin VBG pH Oxyhemoglobin Sodium Potassium Chloride Carbon Dioxide BUN Creatinine Glucose POC Glucose 122 H 182 H 114 H Lactic Acid Calcium AST Alkaline Phosphatase CK-MB (CK-2) CK-MB (CK-2) Rel Index Albumin TSH Urine WBC (Auto) Salicylates 03/09/17 03/09/17 03/09/17 05:21 05:51 05:51 WBC RBC 3.61 L Hgb 9.5 L Hct 28.3 L MCV 79 L MCH 26 L RDW 17.8 H Plt Count Lymph % (Auto) [place] % (Auto) Eos % (Auto) Seg Neutrophils % Seg Neuts % (Manual) Lymphocytes % (Manual) Seg Neutrophils # Seg Neutrophils # Man Lymphocytes # (Manual) APTT POC ABG pH ABG pH POC ABG pCO2 POC ABG pO2 ABG pO2 ABG HCO3 ABG Base Excess ABG Hemoglobin VBG pH Oxyhemoglobin Sodium 134 L Potassium Chloride 95.5 L Carbon Dioxide BUN 33 H Creatinine 0.5 L Glucose 143 H POC Glucose 153 H Lactic Acid Calcium AST Alkaline Phosphatase CK-MB (CK-2) CK-MB (CK-2) Rel Index Albumin TSH Urine WBC (Auto) Salicylates 03/09/17 03/09/17 03/09/17 12:10 18:13 21:00 WBC RBC Hgb Hct MCV MCH RDW Plt Count Lymph % (Auto) [place] % (Auto) Eos % (Auto) Seg Neutrophils % Seg Neuts % (Manual) Lymphocytes % (Manual) Seg Neutrophils # Seg Neutrophils # Man Lymphocytes # (Manual) APTT POC ABG pH ABG pH POC ABG pCO2 POC ABG pO2 ABG pO2 ABG HCO3 ABG Base Excess ABG Hemoglobin VBG pH Oxyhemoglobin Sodium Potassium Chloride Carbon Dioxide BUN Creatinine Glucose POC Glucose 203 H 221 H 198 H Lactic Acid Calcium AST Alkaline Phosphatase CK-MB (CK-2) CK-MB (CK-2) Rel Index Albumin TSH Urine WBC (Auto) Salicylates 03/09/17 03/10/17 03/10/17 23:58 05:09 05:09 WBC RBC Hgb 10.3 L Hct 30.5 L MCV 78 L MCH 26 L RDW 17.9 H Plt Count Lymph % (Auto) [place] % (Auto) 10.0 H Eos % (Auto) 6.0 H Seg Neutrophils % Seg Neuts % (Manual) Lymphocytes % (Manual) Seg Neutrophils # Seg Neutrophils # Man Lymphocytes # (Manual) APTT POC ABG pH ABG pH POC ABG pCO2 POC ABG pO2 ABG pO2 ABG HCO3 ABG Base Excess ABG Hemoglobin VBG pH Oxyhemoglobin Sodium 132 L Potassium Chloride 92.2 L Carbon Dioxide BUN 33 H Creatinine 0.5 L Glucose 50 L POC Glucose 167 H Lactic Acid Calcium AST Alkaline Phosphatase CK-MB (CK-2) CK-MB (CK-2) Rel Index Albumin TSH Urine WBC (Auto) Salicylates 03/10/17 03/10/17 03/10/17 05:33 05:34 11:48 WBC RBC Hgb Hct MCV MCH RDW Plt Count Lymph % (Auto) [place] % (Auto) Eos % (Auto) Seg Neutrophils % Seg Neuts % (Manual) Lymphocytes % (Manual) Seg Neutrophils # Seg Neutrophils # Man Lymphocytes # (Manual) APTT POC ABG pH ABG pH POC ABG pCO2 POC ABG pO2 ABG pO2 ABG HCO3 ABG Base Excess ABG Hemoglobin VBG pH Oxyhemoglobin Sodium Potassium Chloride Carbon Dioxide BUN Creatinine Glucose POC Glucose 52 L 53 L 148 H Lactic Acid Calcium AST Alkaline Phosphatase CK-MB (CK-2) CK-MB (CK-2) Rel Index Albumin TSH Urine WBC (Auto) Salicylates 03/10/17 03/10/17 03/11/17 17:53 23:47 05:18 WBC RBC Hgb Hct MCV MCH RDW Plt Count Lymph % (Auto) [place] % (Auto) Eos % (Auto) Seg Neutrophils % Seg Neuts % (Manual) Lymphocytes % (Manual) Seg Neutrophils # Seg Neutrophils # Man Lymphocytes # (Manual) APTT POC ABG pH ABG pH POC ABG pCO2 POC ABG pO2 ABG pO2 ABG HCO3 ABG Base Excess ABG Hemoglobin VBG pH Oxyhemoglobin Sodium Potassium Chloride Carbon Dioxide BUN Creatinine Glucose POC Glucose 189 H 398 H 126 H Lactic Acid Calcium AST Alkaline Phosphatase CK-MB (CK-2) CK-MB (CK-2) Rel Index Albumin TSH Urine WBC (Auto) Salicylates 03/11/17 03/11/17 03/11/17 11:53 17:30 23:10 WBC RBC Hgb Hct MCV MCH RDW Plt Count Lymph % (Auto) [place] % (Auto) Eos % (Auto) Seg Neutrophils % Seg Neuts % (Manual) Lymphocytes % (Manual) Seg Neutrophils # Seg Neutrophils # Man Lymphocytes # (Manual) APTT POC ABG pH ABG pH POC ABG pCO2 POC ABG pO2 ABG pO2 ABG HCO3 ABG Base Excess ABG Hemoglobin VBG pH Oxyhemoglobin Sodium Potassium Chloride Carbon Dioxide BUN Creatinine Glucose POC Glucose 198 H 142 H 244 H Lactic Acid Calcium AST Alkaline Phosphatase CK-MB (CK-2) CK-MB (CK-2) Rel Index Albumin TSH Urine WBC (Auto) Salicylates 03/12/17 03/12/17 03/12/17 04:36 11:49 17:23 WBC RBC Hgb Hct MCV MCH RDW Plt Count Lymph % (Auto) [place] % (Auto) Eos % (Auto) Seg Neutrophils % Seg Neuts % (Manual) Lymphocytes % (Manual) Seg Neutrophils # Seg Neutrophils # Man Lymphocytes # (Manual) APTT POC ABG pH ABG pH POC ABG pCO2 POC ABG pO2 ABG pO2 ABG HCO3 ABG Base Excess ABG Hemoglobin VBG pH Oxyhemoglobin Sodium Potassium Chloride Carbon Dioxide BUN Creatinine Glucose POC Glucose 205 H 197 H 209 H Lactic Acid Calcium AST Alkaline Phosphatase CK-MB (CK-2) CK-MB (CK-2) Rel Index Albumin TSH Urine WBC (Auto) Salicylates 03/12/17 03/13/17 03/13/17 23:51 05:32 11:43 WBC RBC Hgb Hct MCV MCH RDW Plt Count Lymph % (Auto) [place] % (Auto) Eos % (Auto) Seg Neutrophils % Seg Neuts % (Manual) Lymphocytes % (Manual) Seg Neutrophils # Seg Neutrophils # Man Lymphocytes # (Manual) APTT POC ABG pH ABG pH POC ABG pCO2 POC ABG pO2 ABG pO2 ABG HCO3 ABG Base Excess ABG Hemoglobin VBG pH Oxyhemoglobin Sodium Potassium Chloride Carbon Dioxide BUN Creatinine Glucose POC Glucose 210 H 154 H 164 H Lactic Acid Calcium AST Alkaline Phosphatase CK-MB (CK-2) CK-MB (CK-2) Rel Index Albumin TSH Urine WBC (Auto) Salicylates
[2017-03-14] MEDS: HumuLIN R SUB-Q SCH ×4 (01:11→17:48)
[2017-03-14] MEDS: SYNTHROID PO SCH (06:57)
--- NOTE | 2017-03-14 10:22 | Progress Note ---
Assessment and Plan 51 y/o male found down, concern for sepsis and now encephalopathic requiring mechanical ventilation. 1. continue supportive care 2. 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 I am aware that he is an AND but trach will not fix this problem and is not in my professional opinion the right thing to do for this patient. Most likely he will never be weaned from the vent and will remain in a persistent vegatative state. 3. Patient is not on abx therapy and currently does not need this 4. Overall prognosis continues to be poor. 5. Will not check labs 6. Vitals should be qshift Subjective Date of service: 03/14/17 Principal diagnosis: Acute respiratory failure,encephalopathy Interval history: No acute events. Mental status is the same. Still requiring vent. Tolerates PSV from time to time but will still have apnea. Objective Vital Signs - 12hr 03/13/17 03/13/17 03/14/17 23:00 23:18 00:00 Temperature 99.0 F Pulse Rate 79 75 74 Respiratory 16 19 Rate Blood Pressure 126/83 126/83 121/80 O2 Sat by Pulse 100 100 100 Oximetry 03/14/17 03/14/17 03/14/17 01:00 02:00 03:00 Temperature Pulse Rate 73 74 75 Respiratory 18 17 18 Rate Blood Pressure 122/82 122/82 138/84 O2 Sat by Pulse 100 100 100 Oximetry 03/14/17 03/14/17 03/14/17 03:01 04:00 05:00 Temperature 98.9 F Pulse Rate 74 71 71 Respiratory 18 17 Rate Blood Pressure 122/82 135/88 133/85 O2 Sat by Pulse 100 100 100 Oximetry 03/14/17 03/14/17 03/14/17 06:00 07:00 08:00 Temperature 97.5 F L Pulse Rate 73 71 71 Respiratory 18 18 18 Rate Blood Pressure 122/83 143/86 133/87 O2 Sat by Pulse 100 100 100 Oximetry 03/14/17 03/14/17 09:00 10:12 Temperature Pulse Rate 73 78 Respiratory 16 Rate Blood Pressure 121/81 115/80 O2 Sat by Pulse 100 100 Oximetry Constitutional: no acute distress, other (intubated, on vent support) Eyes: non-icteric ENT: oropharynx moist Neck: supple Effort: normal Ascultation: Bilateral: clear, diminished breath sounds Cardiovascular: regular rate and rhythm Gastrointestinal: normoactive bowel sounds, soft, non-tender, non-distended Integumentary: normal Extremities: no cyanosis, no edema, pink and warm Neurologic: other (awake spontaneously, not not following any commands. Fixed stare.) Psychiatric: other (unable to obtain) CBC and BMP: 03/10/17 05:09 03/10/17 05:09 ABG, PT/INR, D-dimer: ABG POC ABG pH 7.442 (7.35-7.45) 01/31/17 18:55 ABG pH 7.420 pH Units (7.350-7.450) 01/17/17 04:35 POC ABG pCO2 32.8 (35-45) L 01/31/17 18:55 ABG pCO2 34.5 mm Hg 01/17/17 04:35 POC ABG pO2 82 (80-105) 01/31/17 18:55 ABG pO2 160.3 mm Hg (80.0-90.0) H 01/17/17 04:35 POC ABG HCO3 22.4 01/31/17 18:55 POC ABG Total CO2 23 01/31/17 18:55 POC ABG O2 Sat 97 01/31/17 18:55 ABG O2 Saturation 99.0 % (95.0-99.0) 01/17/17 04:35 PT/INR, D-dimer PT 14.1 Sec. (12.2-14.9) 01/17/17 04:10 INR 1.04 (0.87-1.13) 01/17/17 04:10 Abnormal lab findings: Abnormal Labs 01/09/17 01/09/17 01/09/17 10:16 10:16 10:16 WBC RBC Hgb 9.7 L Hct 28.4 L MCV 76 L MCH 26 L RDW 17.2 H Plt Count 448 H Lymph % (Auto) [place] % (Auto) Eos % (Auto) Seg Neutrophils % 79.5 H Seg Neuts % (Manual) Lymphocytes % (Manual) Seg Neutrophils # Seg Neutrophils # Man Lymphocytes # (Manual) APTT 39.6 H POC ABG pH ABG pH POC ABG pCO2 POC ABG pO2 ABG pO2 ABG HCO3 ABG Base Excess ABG Hemoglobin VBG pH Oxyhemoglobin Sodium 132 L Potassium Chloride 96.7 L Carbon Dioxide 21 L BUN 34 H Creatinine Glucose POC Glucose Lactic Acid Calcium 8.3 L AST Alkaline Phosphatase 151 H CK-MB (CK-2) 7.1 H CK-MB (CK-2) Rel Index 5.2 H Albumin 3.3 L TSH Urine WBC (Auto) Salicylates 01/09/17 01/09/17 01/09/17 10:16 10:16 10:16 WBC RBC Hgb Hct MCV MCH RDW Plt Count Lymph % (Auto) [place] % (Auto) Eos % (Auto) Seg Neutrophils % Seg Neuts % (Manual) Lymphocytes % (Manual) Seg Neutrophils # Seg Neutrophils # Man Lymphocytes # (Manual) APTT POC ABG pH ABG pH POC ABG pCO2 POC ABG pO2 ABG pO2 ABG HCO3 ABG Base Excess ABG Hemoglobin VBG pH 7.284 L Oxyhemoglobin Sodium Potassium Chloride Carbon Dioxide BUN Creatinine Glucose POC Glucose Lactic Acid Calcium AST Alkaline Phosphatase CK-MB (CK-2) CK-MB (CK-2) Rel Index Albumin TSH 52.800 H Urine WBC (Auto) Salicylates < 0.3 L 01/09/17 01/09/17 01/09/17 10:23 11:14 12:49 WBC RBC Hgb Hct MCV MCH RDW Plt Count Lymph % (Auto) [place] % (Auto) Eos % (Auto) Seg Neutrophils % Seg Neuts % (Manual) Lymphocytes % (Manual) Seg Neutrophils # Seg Neutrophils # Man Lymphocytes # (Manual) APTT POC ABG pH ABG pH POC ABG pCO2 POC ABG pO2 643 H ABG pO2 ABG HCO3 ABG Base Excess ABG Hemoglobin VBG pH Oxyhemoglobin Sodium Potassium Chloride Carbon Dioxide BUN Creatinine Glucose POC Glucose < 40 L Lactic Acid Calcium AST Alkaline Phosphatase CK-MB (CK-2) CK-MB (CK-2) Rel Index Albumin TSH Urine WBC (Auto) 61.0 H Salicylates 01/09/17 01/09/17 01/09/17 13:13 14:21 15:09 WBC RBC Hgb Hct MCV MCH RDW Plt Count Lymph % (Auto) [place] % (Auto) Eos % (Auto) Seg Neutrophils % Seg Neuts % (Manual) Lymphocytes % (Manual) Seg Neutrophils # Seg Neutrophils # Man Lymphocytes # (Manual) APTT POC ABG pH ABG pH POC ABG pCO2 POC ABG pO2 ABG pO2 ABG HCO3 ABG Base Excess ABG Hemoglobin VBG pH Oxyhemoglobin Sodium Potassium Chloride Carbon Dioxide BUN Creatinine Glucose POC Glucose 128 H 65 L 120 H Lactic Acid Calcium AST Alkaline Phosphatase CK-MB (CK-2) CK-MB (CK-2) Rel Index Albumin TSH Urine WBC (Auto) Salicylates 01/09/17 01/09/17 01/10/17 16:28 17:14 04:30 WBC 24.1 H RBC 3.38 L Hgb 8.5 L Hct 26.0 L MCV 77 L MCH 25 L RDW 17.9 H Plt Count 474 H Lymph % (Auto) [place] % (Auto) Eos % (Auto) Seg Neutrophils % Seg Neuts % (Manual) 88.0 H Lymphocytes % (Manual) 4.0 L Seg Neutrophils # Seg Neutrophils # Man 21.2 H Lymphocytes # (Manual) 1.0 L APTT POC ABG pH ABG pH POC ABG pCO2 POC ABG pO2 ABG pO2 ABG HCO3 ABG Base Excess ABG Hemoglobin VBG pH Oxyhemoglobin Sodium Potassium Chloride Carbon Dioxide BUN Creatinine Glucose POC Glucose 44 L 112 H Lactic Acid Calcium AST Alkaline Phosphatase CK-MB (CK-2) CK-MB (CK-2) Rel Index Albumin TSH Urine WBC (Auto) Salicylates 01/10/17 01/10/17 01/10/17 04:30 05:41 05:45 WBC RBC Hgb Hct MCV MCH RDW Plt Count Lymph % (Auto) [place] % (Auto) Eos % (Auto) Seg Neutrophils % Seg Neuts % (Manual) Lymphocytes % (Manual) Seg Neutrophils # Seg Neutrophils # Man Lymphocytes # (Manual) APTT POC ABG pH ABG pH POC ABG pCO2 26.6 L POC ABG pO2 207 H ABG pO2 ABG HCO3 ABG Base Excess ABG Hemoglobin VBG pH Oxyhemoglobin Sodium Potassium Chloride Carbon Dioxide 17 L BUN 27 H Creatinine Glucose POC Glucose 68 L Lactic Acid Calcium 7.5 L AST Alkaline Phosphatase CK-MB (CK-2) CK-MB (CK-2) Rel Index Albumin TSH Urine WBC (Auto) Salicylates 01/10/17 01/10/17 01/10/17 07:47 10:50 13:41 WBC RBC Hgb Hct MCV MCH RDW Plt Count Lymph % (Auto) [place] % (Auto) Eos % (Auto) Seg Neutrophils % Seg Neuts % (Manual) Lymphocytes % (Manual) Seg Neutrophils # Seg Neutrophils # Man Lymphocytes # (Manual) APTT POC ABG pH ABG pH POC ABG pCO2 POC ABG pO2 ABG pO2 ABG HCO3 ABG Base Excess ABG Hemoglobin VBG pH Oxyhemoglobin Sodium Potassium Chloride Carbon Dioxide BUN Creatinine Glucose POC Glucose 148 H 165 H 114 H Lactic Acid Calcium AST Alkaline Phosphatase CK-MB (CK-2) CK-MB (CK-2) Rel Index Albumin TSH Urine WBC (Auto) Salicylates 01/10/17 01/10/17 01/10/17 20:20 21:39 23:24 WBC RBC Hgb Hct MCV MCH RDW Plt Count Lymph % (Auto) [place] % (Auto) Eos % (Auto) Seg Neutrophils % Seg Neuts % (Manual) Lymphocytes % (Manual) Seg Neutrophils # Seg Neutrophils # Man Lymphocytes # (Manual) APTT POC ABG pH ABG pH POC ABG pCO2 POC ABG pO2 ABG pO2 ABG HCO3 ABG Base Excess ABG Hemoglobin VBG pH Oxyhemoglobin Sodium Potassium Chloride Carbon Dioxide BUN Creatinine Glucose POC Glucose 150 H 175 H 155 H Lactic Acid Calcium AST Alkaline Phosphatase CK-MB (CK-2) CK-MB (CK-2) Rel Index Albumin TSH Urine WBC (Auto) Salicylates 01/11/17 01/11/17 01/11/17 00:19 04:06 05:20 WBC 15.2 H RBC 3.40 L Hgb 8.9 L Hct 26.3 L MCV 78 L MCH 26 L RDW 18.6 H Plt Count 462 H Lymph % (Auto) 13.2 L [place] % (Auto) Eos % (Auto) Seg Neutrophils % 80.8 H Seg Neuts % (Manual) Lymphocytes % (Manual) Seg Neutrophils # 12.3 H Seg Neutrophils # Man Lymphocytes # (Manual) APTT POC ABG pH 7.463 H ABG pH POC ABG pCO2 26.2 L POC ABG pO2 185 H ABG pO2 ABG HCO3 ABG Base Excess ABG Hemoglobin VBG pH Oxyhemoglobin Sodium Potassium Chloride Carbon Dioxide BUN Creatinine Glucose POC Glucose 163 H Lactic Acid Calcium AST Alkaline Phosphatase CK-MB (CK-2) CK-MB (CK-2) Rel Index Albumin TSH Urine WBC (Auto) Salicylates 01/11/17 01/11/17 01/11/17 05:20 06:21 07:57 WBC RBC Hgb Hct MCV MCH RDW Plt Count Lymph % (Auto) [place] % (Auto) Eos % (Auto) Seg Neutrophils % Seg Neuts % (Manual) Lymphocytes % (Manual) Seg Neutrophils # Seg Neutrophils # Man Lymphocytes # (Manual) APTT POC ABG pH ABG pH POC ABG pCO2 POC ABG pO2 ABG pO2 ABG HCO3 ABG Base Excess ABG Hemoglobin VBG pH Oxyhemoglobin Sodium Potassium 3.4 L Chloride 111.5 H Carbon Dioxide 17 L BUN Creatinine Glucose 147 H POC Glucose 139 H 188 H Lactic Acid Calcium 8.0 L AST Alkaline Phosphatase CK-MB (CK-2) CK-MB (CK-2) Rel Index Albumin TSH Urine WBC (Auto) Salicylates 01/11/17 01/11/17 01/11/17 11:46 16:50 23:15 WBC RBC Hgb Hct MCV MCH RDW Plt Count Lymph % (Auto) [place] % (Auto) Eos % (Auto) Seg Neutrophils % Seg Neuts % (Manual) Lymphocytes % (Manual) Seg Neutrophils # Seg Neutrophils # Man Lymphocytes # (Manual) APTT POC ABG pH ABG pH POC ABG pCO2 POC ABG pO2 ABG pO2 ABG HCO3 ABG Base Excess ABG Hemoglobin VBG pH Oxyhemoglobin Sodium Potassium Chloride Carbon Dioxide BUN Creatinine Glucose POC Glucose 199 H 235 H 155 H Lactic Acid Calcium AST Alkaline Phosphatase CK-MB (CK-2) CK-MB (CK-2) Rel Index Albumin TSH Urine WBC (Auto) Salicylates 01/12/17 01/12/17 01/12/17 05:02 06:56 14:50 WBC RBC Hgb Hct MCV MCH RDW Plt Count Lymph % (Auto) [place] % (Auto) Eos % (Auto) Seg Neutrophils % Seg Neuts % (Manual) Lymphocytes % (Manual) Seg Neutrophils # Seg Neutrophils # Man Lymphocytes # (Manual) APTT POC ABG pH ABG pH POC ABG pCO2 28.0 L POC ABG pO2 178 H ABG pO2 ABG HCO3 ABG Base Excess ABG Hemoglobin VBG pH Oxyhemoglobin Sodium Potassium Chloride Carbon Dioxide BUN Creatinine Glucose POC Glucose 119 H 164 H Lactic Acid Calcium AST Alkaline Phosphatase CK-MB (CK-2) CK-MB (CK-2) Rel Index Albumin TSH Urine WBC (Auto) Salicylates 01/13/17 01/13/17 01/13/17 03:37 03:37 04:26 WBC RBC 3.61 L Hgb 9.3 L Hct 28.0 L MCV 78 L MCH 26 L RDW 18.2 H Plt Count Lymph % (Auto) [place] % (Auto) Eos % (Auto) Seg Neutrophils % Seg Neuts % (Manual) Lymphocytes % (Manual) Seg Neutrophils # Seg Neutrophils # Man Lymphocytes # (Manual) APTT POC ABG pH 7.485 H ABG pH POC ABG pCO2 25.4 L POC ABG pO2 73 L ABG pO2 ABG HCO3 ABG Base Excess ABG Hemoglobin VBG pH Oxyhemoglobin Sodium Potassium Chloride 112.4 H Carbon Dioxide 19 L BUN Creatinine Glucose 118 H POC Glucose Lactic Acid Calcium 8.0 L AST Alkaline Phosphatase CK-MB (CK-2) CK-MB (CK-2) Rel Index Albumin TSH Urine WBC (Auto) Salicylates 01/13/17 01/13/17 01/13/17 06:15 11:50 17:31 WBC RBC Hgb Hct MCV MCH RDW Plt Count Lymph % (Auto) [place] % (Auto) Eos % (Auto) Seg Neutrophils % Seg Neuts % (Manual) Lymphocytes % (Manual) Seg Neutrophils # Seg Neutrophils # Man Lymphocytes # (Manual) APTT POC ABG pH ABG pH POC ABG pCO2 POC ABG pO2 ABG pO2 ABG HCO3 ABG Base Excess ABG Hemoglobin VBG pH Oxyhemoglobin Sodium Potassium Chloride Carbon Dioxide BUN Creatinine Glucose POC Glucose 116 H 171 H 203 H Lactic Acid Calcium AST Alkaline Phosphatase CK-MB (CK-2) CK-MB (CK-2) Rel Index Albumin TSH Urine WBC (Auto) Salicylates 01/14/17 01/14/17 01/14/17 00:02 04:50 04:50 WBC RBC 3.32 L Hgb 8.5 L Hct 26.1 L MCV 79 L MCH 26 L RDW 18.2 H Plt Count Lymph % (Auto) [place] % (Auto) 9.0 H Eos % (Auto) Seg Neutrophils % Seg Neuts % (Manual) Lymphocytes % (Manual) Seg Neutrophils # Seg Neutrophils # Man Lymphocytes # (Manual) APTT POC ABG pH ABG pH POC ABG pCO2 POC ABG pO2 ABG pO2 ABG HCO3 ABG Base Excess ABG Hemoglobin VBG pH Oxyhemoglobin Sodium Potassium Chloride 112.5 H Carbon Dioxide BUN Creatinine Glucose 149 H POC Glucose 157 H Lactic Acid Calcium 8.1 L AST Alkaline Phosphatase CK-MB (CK-2) CK-MB (CK-2) Rel Index Albumin TSH Urine WBC (Auto) Salicylates 01/14/17 01/14/17 01/14/17 05:10 11:27 14:07 WBC RBC Hgb Hct MCV MCH RDW Plt Count Lymph % (Auto) [place] % (Auto) Eos % (Auto) Seg Neutrophils % Seg Neuts % (Manual) Lymphocytes % (Manual) Seg Neutrophils # Seg Neutrophils # Man Lymphocytes # (Manual) APTT POC ABG pH ABG pH POC ABG pCO2 POC ABG pO2 ABG pO2 ABG HCO3 ABG Base Excess ABG Hemoglobin VBG pH Oxyhemoglobin Sodium Potassium Chloride Carbon Dioxide BUN Creatinine Glucose POC Glucose 176 H 147 H Lactic Acid Calcium AST Alkaline Phosphatase CK-MB (CK-2) CK-MB (CK-2) Rel Index Albumin TSH Urine WBC (Auto) 53.0 H Salicylates 01/14/17 01/15/17 01/15/17 16:52 00:04 05:26 WBC RBC Hgb Hct MCV MCH RDW Plt Count Lymph % (Auto) [place] % (Auto) Eos % (Auto) Seg Neutrophils % Seg Neuts % (Manual) Lymphocytes % (Manual) Seg Neutrophils # Seg Neutrophils # Man Lymphocytes # (Manual) APTT POC ABG pH ABG pH POC ABG pCO2 POC ABG pO2 ABG pO2 ABG HCO3 ABG Base Excess ABG Hemoglobin VBG pH Oxyhemoglobin Sodium Potassium Chloride Carbon Dioxide BUN Creatinine Glucose POC Glucose 131 H 193 H 215 H Lactic Acid Calcium AST Alkaline Phosphatase CK-MB (CK-2) CK-MB (CK-2) Rel Index Albumin TSH Urine WBC (Auto) Salicylates 01/15/17 01/15/17 01/15/17 11:49 17:47 21:33 WBC RBC Hgb Hct MCV MCH RDW Plt Count Lymph % (Auto) [place] % (Auto) Eos % (Auto) Seg Neutrophils % Seg Neuts % (Manual) Lymphocytes % (Manual) Seg Neutrophils # Seg Neutrophils # Man Lymphocytes # (Manual) APTT POC ABG pH ABG pH POC ABG pCO2 POC ABG pO2 ABG pO2 ABG HCO3 ABG Base Excess ABG Hemoglobin VBG pH Oxyhemoglobin Sodium Potassium Chloride Carbon Dioxide BUN Creatinine Glucose POC Glucose 121 H 211 H 275 H Lactic Acid Calcium AST Alkaline Phosphatase CK-MB (CK-2) CK-MB (CK-2) Rel Index Albumin TSH Urine WBC (Auto) Salicylates 01/16/17 01/16/17 01/16/17 04:30 05:28 13:45 WBC RBC Hgb Hct MCV MCH RDW Plt Count Lymph % (Auto) [place] % (Auto) Eos % (Auto) Seg Neutrophils % Seg Neuts % (Manual) Lymphocytes % (Manual) Seg Neutrophils # Seg Neutrophils # Man Lymphocytes # (Manual) APTT POC ABG pH ABG pH 7.457 H POC ABG pCO2 POC ABG pO2 ABG pO2 55.1 L ABG HCO3 19.4 L ABG Base Excess -4.0 L ABG Hemoglobin 6.8 L VBG pH Oxyhemoglobin 94.9 L Sodium Potassium Chloride Carbon Dioxide BUN Creatinine Glucose POC Glucose 271 H 236 H Lactic Acid Calcium AST Alkaline Phosphatase CK-MB (CK-2) CK-MB (CK-2) Rel Index Albumin TSH Urine WBC (Auto) Salicylates 01/16/17 01/17/17 01/17/17 21:39 04:10 04:10 WBC 4.4 L RBC 2.98 L Hgb 7.7 L Hct 23.3 L MCV 78 L MCH 26 L RDW 18.1 H Plt Count Lymph % (Auto) [place] % (Auto) Eos % (Auto) Seg Neutrophils % Seg Neuts % (Manual) Lymphocytes % (Manual) Seg Neutrophils # Seg Neutrophils # Man Lymphocytes # (Manual) APTT POC ABG pH ABG pH POC ABG pCO2 POC ABG pO2 ABG pO2 ABG HCO3 ABG Base Excess ABG Hemoglobin VBG pH Oxyhemoglobin Sodium Potassium 3.3 L Chloride 108.7 H Carbon Dioxide 20 L BUN 8 L Creatinine Glucose 202 H POC Glucose 258 H Lactic Acid Calcium 7.6 L AST Alkaline Phosphatase CK-MB (CK-2) CK-MB (CK-2) Rel Index Albumin TSH Urine WBC (Auto) Salicylates 01/17/17 01/17/17 01/17/17 04:35 12:23 16:01 WBC RBC Hgb Hct MCV MCH RDW Plt Count Lymph % (Auto) [place] % (Auto) Eos % (Auto) Seg Neutrophils % Seg Neuts % (Manual) Lymphocytes % (Manual) Seg Neutrophils # Seg Neutrophils # Man Lymphocytes # (Manual) APTT POC ABG pH ABG pH POC ABG pCO2 POC ABG pO2 ABG pO2 160.3 H ABG HCO3 ABG Base Excess -2.3 L ABG Hemoglobin 7.9 L VBG pH Oxyhemoglobin Sodium Potassium Chloride Carbon Dioxide BUN Creatinine Glucose POC Glucose 321 H 239 H Lactic Acid Calcium AST Alkaline Phosphatase CK-MB (CK-2) CK-MB (CK-2) Rel Index Albumin TSH Urine WBC (Auto) Salicylates 01/18/17 01/18/17 01/18/17 05:07 12:09 17:54 WBC RBC Hgb Hct MCV MCH RDW Plt Count Lymph % (Auto) [place] % (Auto) Eos % (Auto) Seg Neutrophils % Seg Neuts % (Manual) Lymphocytes % (Manual) Seg Neutrophils # Seg Neutrophils # Man Lymphocytes # (Manual) APTT POC ABG pH ABG pH POC ABG pCO2 POC ABG pO2 ABG pO2 ABG HCO3 ABG Base Excess ABG Hemoglobin VBG pH Oxyhemoglobin Sodium Potassium Chloride Carbon Dioxide BUN Creatinine Glucose POC Glucose 155 H 203 H 132 H Lactic Acid Calcium AST Alkaline Phosphatase CK-MB (CK-2) CK-MB (CK-2) Rel Index Albumin TSH Urine WBC (Auto) Salicylates 01/18/17 01/19/17 01/19/17 23:43 04:28 12:11 WBC RBC Hgb Hct MCV MCH RDW Plt Count Lymph % (Auto) [place] % (Auto) Eos % (Auto) Seg Neutrophils % Seg Neuts % (Manual) Lymphocytes % (Manual) Seg Neutrophils # Seg Neutrophils # Man Lymphocytes # (Manual) APTT POC ABG pH ABG pH POC ABG pCO2 POC ABG pO2 ABG pO2 ABG HCO3 ABG Base Excess ABG Hemoglobin VBG pH Oxyhemoglobin Sodium Potassium Chloride Carbon Dioxide BUN Creatinine Glucose POC Glucose 125 H 182 H 153 H Lactic Acid Calcium AST Alkaline Phosphatase CK-MB (CK-2) CK-MB (CK-2) Rel Index Albumin TSH Urine WBC (Auto) Salicylates 01/19/17 01/20/17 01/20/17 17:23 00:12 05:44 WBC RBC Hgb Hct MCV MCH RDW Plt Count Lymph % (Auto) [place] % (Auto) Eos % (Auto) Seg Neutrophils % Seg Neuts % (Manual) Lymphocytes % (Manual) Seg Neutrophils # Seg Neutrophils # Man Lymphocytes # (Manual) APTT POC ABG pH ABG pH POC ABG pCO2 POC ABG pO2 ABG pO2 ABG HCO3 ABG Base Excess ABG Hemoglobin VBG pH Oxyhemoglobin Sodium Potassium Chloride Carbon Dioxide BUN Creatinine Glucose POC Glucose 66 L 139 H 176 H Lactic Acid Calcium AST Alkaline Phosphatase CK-MB (CK-2) CK-MB (CK-2) Rel Index Albumin TSH Urine WBC (Auto) Salicylates 01/20/17 01/20/17 01/20/17 11:48 17:42 23:43 WBC RBC Hgb Hct MCV MCH RDW Plt Count Lymph % (Auto) [place] % (Auto) Eos % (Auto) Seg Neutrophils % Seg Neuts % (Manual) Lymphocytes % (Manual) Seg Neutrophils # Seg Neutrophils # Man Lymphocytes # (Manual) APTT POC ABG pH ABG pH POC ABG pCO2 POC ABG pO2 ABG pO2 ABG HCO3 ABG Base Excess ABG Hemoglobin VBG pH Oxyhemoglobin Sodium Potassium Chloride Carbon Dioxide BUN Creatinine Glucose POC Glucose 218 H 132 H 178 H Lactic Acid Calcium AST Alkaline Phosphatase CK-MB (CK-2) CK-MB (CK-2) Rel Index Albumin TSH Urine WBC (Auto) Salicylates 01/21/17 01/21/17 01/21/17 05:34 11:17 23:37 WBC RBC Hgb Hct MCV MCH RDW Plt Count Lymph % (Auto) [place] % (Auto) Eos % (Auto) Seg Neutrophils % Seg Neuts % (Manual) Lymphocytes % (Manual) Seg Neutrophils # Seg Neutrophils # Man Lymphocytes # (Manual) APTT POC ABG pH ABG pH POC ABG pCO2 POC ABG pO2 ABG pO2 ABG HCO3 ABG Base Excess ABG Hemoglobin VBG pH Oxyhemoglobin Sodium Potassium Chloride Carbon Dioxide BUN Creatinine Glucose POC Glucose 106 H 213 H 140 H Lactic Acid Calcium AST Alkaline Phosphatase CK-MB (CK-2) CK-MB (CK-2) Rel Index Albumin TSH Urine WBC (Auto) Salicylates 01/22/17 01/22/17 01/22/17 04:00 04:00 04:58 WBC RBC 3.26 L Hgb 8.3 L Hct 25.5 L MCV 78 L MCH 25 L RDW 17.9 H Plt Count Lymph % (Auto) [place] % (Auto) 7.9 H Eos % (Auto) 6.2 H Seg Neutrophils % Seg Neuts % (Manual) Lymphocytes % (Manual) Seg Neutrophils # Seg Neutrophils # Man Lymphocytes # (Manual) APTT POC ABG pH ABG pH POC ABG pCO2 POC ABG pO2 ABG pO2 ABG HCO3 ABG Base Excess ABG Hemoglobin VBG pH Oxyhemoglobin Sodium Potassium Chloride 95.5 L Carbon Dioxide 31 H D BUN Creatinine Glucose 134 H POC Glucose 146 H Lactic Acid Calcium AST 44 H Alkaline Phosphatase 379 H CK-MB (CK-2) CK-MB (CK-2) Rel Index Albumin 2.7 L TSH Urine WBC (Auto) Salicylates 01/22/17 01/22/17 01/22/17 12:12 18:12 23:39 WBC RBC Hgb Hct MCV MCH RDW Plt Count Lymph % (Auto) [place] % (Auto) Eos % (Auto) Seg Neutrophils % Seg Neuts % (Manual) Lymphocytes % (Manual) Seg Neutrophils # Seg Neutrophils # Man Lymphocytes # (Manual) APTT POC ABG pH ABG pH POC ABG pCO2 POC ABG pO2 ABG pO2 ABG HCO3 ABG Base Excess ABG Hemoglobin VBG pH Oxyhemoglobin Sodium Potassium Chloride Carbon Dioxide BUN Creatinine Glucose POC Glucose 255 H 182 H 134 H Lactic Acid Calcium AST Alkaline Phosphatase CK-MB (CK-2) CK-MB (CK-2) Rel Index Albumin TSH Urine WBC (Auto) Salicylates 01/23/17 01/23/17 01/23/17 04:43 12:12 17:36 WBC RBC Hgb Hct MCV MCH RDW Plt Count Lymph % (Auto) [place] % (Auto) Eos % (Auto) Seg Neutrophils % Seg Neuts % (Manual) Lymphocytes % (Manual) Seg Neutrophils # Seg Neutrophils # Man Lymphocytes # (Manual) APTT POC ABG pH ABG pH POC ABG pCO2 POC ABG pO2 ABG pO2 ABG HCO3 ABG Base Excess ABG Hemoglobin VBG pH Oxyhemoglobin Sodium Potassium Chloride Carbon Dioxide BUN Creatinine Glucose POC Glucose 218 H 128 H 156 H Lactic Acid Calcium AST Alkaline Phosphatase CK-MB (CK-2) CK-MB (CK-2) Rel Index Albumin TSH Urine WBC (Auto) Salicylates 01/24/17 01/24/17 01/24/17 00:08 05:16 11:40 WBC RBC Hgb Hct MCV MCH RDW Plt Count Lymph % (Auto) [place] % (Auto) Eos % (Auto) Seg Neutrophils % Seg Neuts % (Manual) Lymphocytes % (Manual) Seg Neutrophils # Seg Neutrophils # Man Lymphocytes # (Manual) APTT POC ABG pH ABG pH POC ABG pCO2 POC ABG pO2 ABG pO2 ABG HCO3 ABG Base Excess ABG Hemoglobin VBG pH Oxyhemoglobin Sodium Potassium Chloride Carbon Dioxide BUN Creatinine Glucose POC Glucose 129 H 169 H 187 H Lactic Acid Calcium AST Alkaline Phosphatase CK-MB (CK-2) CK-MB (CK-2) Rel Index Albumin TSH Urine WBC (Auto) Salicylates 01/24/17 01/24/17 01/25/17 17:43 23:23 04:56 WBC RBC Hgb Hct MCV MCH RDW Plt Count Lymph % (Auto) [place] % (Auto) Eos % (Auto) Seg Neutrophils % Seg Neuts % (Manual) Lymphocytes % (Manual) Seg Neutrophils # Seg Neutrophils # Man Lymphocytes # (Manual) APTT POC ABG pH ABG pH POC ABG pCO2 POC ABG pO2 ABG pO2 ABG HCO3 ABG Base Excess ABG Hemoglobin VBG pH Oxyhemoglobin Sodium Potassium Chloride Carbon Dioxide BUN Creatinine Glucose POC Glucose 215 H 222 H 210 H Lactic Acid Calcium AST Alkaline Phosphatase CK-MB (CK-2) CK-MB (CK-2) Rel Index Albumin TSH Urine WBC (Auto) Salicylates 01/25/17 01/25/17 01/26/17 11:52 17:37 00:02 WBC RBC Hgb Hct MCV MCH RDW Plt Count Lymph % (Auto) [place] % (Auto) Eos % (Auto) Seg Neutrophils % Seg Neuts % (Manual) Lymphocytes % (Manual) Seg Neutrophils # Seg Neutrophils # Man Lymphocytes # (Manual) APTT POC ABG pH ABG pH POC ABG pCO2 POC ABG pO2 ABG pO2 ABG HCO3 ABG Base Excess ABG Hemoglobin VBG pH Oxyhemoglobin Sodium Potassium Chloride Carbon Dioxide BUN Creatinine Glucose POC Glucose 284 H 218 H 192 H Lactic Acid Calcium AST Alkaline Phosphatase CK-MB (CK-2) CK-MB (CK-2) Rel Index Albumin TSH Urine WBC (Auto) Salicylates 01/26/17 01/26/17 01/26/17 05:33 12:17 17:50 WBC RBC Hgb Hct MCV MCH RDW Plt Count Lymph % (Auto) [place] % (Auto) Eos % (Auto) Seg Neutrophils % Seg Neuts % (Manual) Lymphocytes % (Manual) Seg Neutrophils # Seg Neutrophils # Man Lymphocytes # (Manual) APTT POC ABG pH ABG pH POC ABG pCO2 POC ABG pO2 ABG pO2 ABG HCO3 ABG Base Excess ABG Hemoglobin VBG pH Oxyhemoglobin Sodium Potassium Chloride Carbon Dioxide BUN Creatinine Glucose POC Glucose 199 H 227 H 229 H Lactic Acid Calcium AST Alkaline Phosphatase CK-MB (CK-2) CK-MB (CK-2) Rel Index Albumin TSH Urine WBC (Auto) Salicylates 01/26/17 01/27/17 01/27/17 23:57 05:31 11:42 WBC RBC Hgb Hct MCV MCH RDW Plt Count Lymph % (Auto) [place] % (Auto) Eos % (Auto) Seg Neutrophils % Seg Neuts % (Manual) Lymphocytes % (Manual) Seg Neutrophils # Seg Neutrophils # Man Lymphocytes # (Manual) APTT POC ABG pH ABG pH POC ABG pCO2 POC ABG pO2 ABG pO2 ABG HCO3 ABG Base Excess ABG Hemoglobin VBG pH Oxyhemoglobin Sodium Potassium Chloride Carbon Dioxide BUN Creatinine Glucose POC Glucose 186 H 285 H 260 H Lactic Acid Calcium AST Alkaline Phosphatase CK-MB (CK-2) CK-MB (CK-2) Rel Index Albumin TSH Urine WBC (Auto) Salicylates 01/27/17 01/27/17 01/27/17 17:47 23:58 Unknown WBC 12.1 H RBC 3.28 L Hgb 8.5 L Hct 25.5 L MCV 78 L MCH 26 L RDW 16.8 H Plt Count 601 H Lymph % (Auto) [place] % (Auto) Eos % (Auto) Seg Neutrophils % Seg Neuts % (Manual) Lymphocytes % (Manual) Seg Neutrophils # Seg Neutrophils # Man Lymphocytes # (Manual) APTT POC ABG pH ABG pH POC ABG pCO2 POC ABG pO2 ABG pO2 ABG HCO3 ABG Base Excess ABG Hemoglobin VBG pH Oxyhemoglobin Sodium Potassium Chloride Carbon Dioxide BUN Creatinine Glucose POC Glucose 329 H 225 H Lactic Acid Calcium AST Alkaline Phosphatase CK-MB (CK-2) CK-MB (CK-2) Rel Index Albumin TSH Urine WBC (Auto) Salicylates 01/27/17 01/28/17 01/28/17 Unknown 03:44 03:44 WBC RBC 3.14 L Hgb 8.2 L Hct 24.1 L MCV 77 L MCH 26 L RDW 16.9 H Plt Count 567 H Lymph % (Auto) [place] % (Auto) Eos % (Auto) Seg Neutrophils % Seg Neuts % (Manual) Lymphocytes % (Manual) Seg Neutrophils # Seg Neutrophils # Man Lymphocytes # (Manual) APTT POC ABG pH ABG pH POC ABG pCO2 POC ABG pO2 ABG pO2 ABG HCO3 ABG Base Excess ABG Hemoglobin VBG pH Oxyhemoglobin Sodium 128 L Potassium 5.4 H Chloride 87.5 L Carbon Dioxide BUN 44 H 42 H Creatinine Glucose 250 H 128 H POC Glucose Lactic Acid Calcium AST Alkaline Phosphatase CK-MB (CK-2) CK-MB (CK-2) Rel Index Albumin TSH Urine WBC (Auto) Salicylates 01/28/17 01/28/17 01/28/17 11:43 16:47 17:52 WBC RBC Hgb Hct MCV MCH RDW Plt Count Lymph % (Auto) [place] % (Auto) Eos % (Auto) Seg Neutrophils % Seg Neuts % (Manual) Lymphocytes % (Manual) Seg Neutrophils # Seg Neutrophils # Man Lymphocytes # (Manual) APTT POC ABG pH ABG pH POC ABG pCO2 POC ABG pO2 ABG pO2 ABG HCO3 ABG Base Excess ABG Hemoglobin VBG pH Oxyhemoglobin Sodium Potassium Chloride Carbon Dioxide BUN Creatinine Glucose POC Glucose 351 H 249 H Lactic Acid Calcium AST Alkaline Phosphatase CK-MB (CK-2) CK-MB (CK-2) Rel Index Albumin TSH Urine WBC (Auto) > 182.0 H Salicylates 01/29/17 01/29/17 01/29/17 05:25 05:25 09:32 WBC 13.6 H RBC 3.25 L Hgb 8.3 L Hct 25.1 L MCV 77 L MCH 26 L RDW 16.8 H Plt Count 514 H Lymph % (Auto) [place] % (Auto) Eos % (Auto) Seg Neutrophils % Seg Neuts % (Manual) Lymphocytes % (Manual) Seg Neutrophils # Seg Neutrophils # Man Lymphocytes # (Manual) APTT POC ABG pH ABG pH POC ABG pCO2 POC ABG pO2 ABG pO2 ABG HCO3 ABG Base Excess ABG Hemoglobin VBG pH Oxyhemoglobin Sodium Potassium Chloride 97.8 L Carbon Dioxide BUN 34 H Creatinine Glucose 222 H POC Glucose Lactic Acid 2.50 H* Calcium AST Alkaline Phosphatase CK-MB (CK-2) CK-MB (CK-2) Rel Index Albumin TSH Urine WBC (Auto) Salicylates 01/29/17 01/29/17 01/29/17 11:56 18:11 23:55 WBC RBC Hgb Hct MCV MCH RDW Plt Count Lymph % (Auto) [place] % (Auto) Eos % (Auto) Seg Neutrophils % Seg Neuts % (Manual) Lymphocytes % (Manual) Seg Neutrophils # Seg Neutrophils # Man Lymphocytes # (Manual) APTT POC ABG pH ABG pH POC ABG pCO2 POC ABG pO2 ABG pO2 ABG HCO3 ABG Base Excess ABG Hemoglobin VBG pH Oxyhemoglobin Sodium Potassium Chloride Carbon Dioxide BUN Creatinine Glucose POC Glucose 261 H 215 H 176 H Lactic Acid Calcium AST Alkaline Phosphatase CK-MB (CK-2) CK-MB (CK-2) Rel Index Albumin TSH Urine WBC (Auto) Salicylates 01/30/17 01/30/17 01/30/17 05:31 05:31 05:34 WBC 15.2 H RBC 3.09 L Hgb 7.9 L Hct 23.9 L MCV 77 L MCH 26 L RDW 16.9 H Plt Count 569 H Lymph % (Auto) [place] % (Auto) Eos % (Auto) Seg Neutrophils % Seg Neuts % (Manual) Lymphocytes % (Manual) Seg Neutrophils # Seg Neutrophils # Man Lymphocytes # (Manual) APTT POC ABG pH ABG pH POC ABG pCO2 POC ABG pO2 ABG pO2 ABG HCO3 ABG Base Excess ABG Hemoglobin VBG pH Oxyhemoglobin Sodium Potassium Chloride Carbon Dioxide BUN 24 H Creatinine Glucose 235 H POC Glucose 243 H Lactic Acid Calcium AST Alkaline Phosphatase CK-MB (CK-2) CK-MB (CK-2) Rel Index Albumin TSH Urine WBC (Auto) Salicylates 01/30/17 01/30/17 01/30/17 11:38 17:58 23:29 WBC RBC Hgb Hct MCV MCH RDW Plt Count Lymph % (Auto) [place] % (Auto) Eos % (Auto) Seg Neutrophils % Seg Neuts % (Manual) Lymphocytes % (Manual) Seg Neutrophils # Seg Neutrophils # Man Lymphocytes # (Manual) APTT POC ABG pH ABG pH POC ABG pCO2 POC ABG pO2 ABG pO2 ABG HCO3 ABG Base Excess ABG Hemoglobin VBG pH Oxyhemoglobin Sodium Potassium Chloride Carbon Dioxide BUN Creatinine Glucose POC Glucose 298 H 208 H 245 H Lactic Acid Calcium AST Alkaline Phosphatase CK-MB (CK-2) CK-MB (CK-2) Rel Index Albumin TSH Urine WBC (Auto) Salicylates 01/31/17 01/31/17 01/31/17 04:39 04:39 05:57 WBC 11.4 H RBC 3.22 L Hgb 8.2 L Hct 24.9 L MCV 78 L MCH 25 L RDW 17.2 H Plt Count 576 H Lymph % (Auto) [place] % (Auto) Eos % (Auto) Seg Neutrophils % Seg Neuts % (Manual) Lymphocytes % (Manual) Seg Neutrophils # Seg Neutrophils # Man Lymphocytes # (Manual) APTT POC ABG pH ABG pH POC ABG pCO2 POC ABG pO2 ABG pO2 ABG HCO3 ABG Base Excess ABG Hemoglobin VBG pH Oxyhemoglobin Sodium Potassium Chloride Carbon Dioxide BUN Creatinine 0.7 L Glucose 223 H POC Glucose 264 H Lactic Acid Calcium AST Alkaline Phosphatase CK-MB (CK-2) CK-MB (CK-2) Rel Index Albumin TSH Urine WBC (Auto) Salicylates 01/31/17 01/31/17 01/31/17 12:23 17:41 18:55 WBC RBC Hgb Hct MCV MCH RDW Plt Count Lymph % (Auto) [place] % (Auto) Eos % (Auto) Seg Neutrophils % Seg Neuts % (Manual) Lymphocytes % (Manual) Seg Neutrophils # Seg Neutrophils # Man Lymphocytes # (Manual) APTT POC ABG pH ABG pH POC ABG pCO2 32.8 L POC ABG pO2 ABG pO2 ABG HCO3 ABG Base Excess ABG Hemoglobin VBG pH Oxyhemoglobin Sodium Potassium Chloride Carbon Dioxide BUN Creatinine Glucose POC Glucose 252 H 208 H Lactic Acid Calcium AST Alkaline Phosphatase CK-MB (CK-2) CK-MB (CK-2) Rel Index Albumin TSH Urine WBC (Auto) Salicylates 01/31/17 02/01/17 02/01/17 22:59 03:38 03:38 WBC RBC 2.81 L Hgb 7.4 L Hct 22.1 L MCV 79 L MCH 27 L RDW 17.0 H Plt Count 540 H Lymph % (Auto) [place] % (Auto) Eos % (Auto) Seg Neutrophils % Seg Neuts % (Manual) Lymphocytes % (Manual) Seg Neutrophils # Seg Neutrophils # Man Lymphocytes # (Manual) APTT POC ABG pH ABG pH POC ABG pCO2 POC ABG pO2 ABG pO2 ABG HCO3 ABG Base Excess ABG Hemoglobin VBG pH Oxyhemoglobin Sodium Potassium Chloride Carbon Dioxide 21 L BUN Creatinine 0.7 L Glucose POC Glucose 40 L Lactic Acid Calcium AST Alkaline Phosphatase CK-MB (CK-2) CK-MB (CK-2) Rel Index Albumin TSH Urine WBC (Auto) Salicylates 02/01/17 02/01/17 02/01/17 05:17 12:19 16:44 WBC RBC Hgb Hct MCV MCH RDW Plt Count Lymph % (Auto) [place] % (Auto) Eos % (Auto) Seg Neutrophils % Seg Neuts % (Manual) Lymphocytes % (Manual) Seg Neutrophils # Seg Neutrophils # Man Lymphocytes # (Manual) APTT POC ABG pH ABG pH POC ABG pCO2 POC ABG pO2 ABG pO2 ABG HCO3 ABG Base Excess ABG Hemoglobin VBG pH Oxyhemoglobin Sodium Potassium Chloride Carbon Dioxide BUN Creatinine Glucose POC Glucose 140 H 213 H 172 H Lactic Acid Calcium AST Alkaline Phosphatase CK-MB (CK-2) CK-MB (CK-2) Rel Index Albumin TSH Urine WBC (Auto) Salicylates 02/01/17 02/02/17 02/02/17 23:59 05:14 11:24 WBC RBC Hgb Hct MCV MCH RDW Plt Count Lymph % (Auto) [place] % (Auto) Eos % (Auto) Seg Neutrophils % Seg Neuts % (Manual) Lymphocytes % (Manual) Seg Neutrophils # Seg Neutrophils # Man Lymphocytes # (Manual) APTT POC ABG pH ABG pH POC ABG pCO2 POC ABG pO2 ABG pO2 ABG HCO3 ABG Base Excess ABG Hemoglobin VBG pH Oxyhemoglobin Sodium Potassium Chloride Carbon Dioxide BUN Creatinine Glucose POC Glucose 181 H 194 H 209 H Lactic Acid Calcium AST Alkaline Phosphatase CK-MB (CK-2) CK-MB (CK-2) Rel Index Albumin TSH Urine WBC (Auto) Salicylates 02/02/17 02/02/17 02/02/17 11:46 11:46 17:47 WBC RBC 2.94 L Hgb 7.5 L Hct 23.0 L MCV 78 L MCH 25 L RDW 16.9 H Plt Count 520 H Lymph % (Auto) [place] % (Auto) Eos % (Auto) Seg Neutrophils % Seg Neuts % (Manual) Lymphocytes % (Manual) Seg Neutrophils # Seg Neutrophils # Man Lymphocytes # (Manual) APTT POC ABG pH ABG pH POC ABG pCO2 POC ABG pO2 ABG pO2 ABG HCO3 ABG Base Excess ABG Hemoglobin VBG pH Oxyhemoglobin Sodium Potassium Chloride Carbon Dioxide BUN Creatinine 0.6 L Glucose 189 H POC Glucose 147 H Lactic Acid Calcium 8.1 L AST Alkaline Phosphatase CK-MB (CK-2) CK-MB (CK-2) Rel Index Albumin TSH Urine WBC (Auto) Salicylates 02/02/17 02/03/17 02/03/17 23:32 05:53 11:19 WBC RBC Hgb Hct MCV MCH RDW Plt Count Lymph % (Auto) [place] % (Auto) Eos % (Auto) Seg Neutrophils % Seg Neuts % (Manual) Lymphocytes % (Manual) Seg Neutrophils # Seg Neutrophils # Man Lymphocytes # (Manual) APTT POC ABG pH ABG pH POC ABG pCO2 POC ABG pO2 ABG pO2 ABG HCO3 ABG Base Excess ABG Hemoglobin VBG pH Oxyhemoglobin Sodium Potassium Chloride Carbon Dioxide BUN Creatinine Glucose POC Glucose 176 H 224 H 228 H Lactic Acid Calcium AST Alkaline Phosphatase CK-MB (CK-2) CK-MB (CK-2) Rel Index Albumin TSH Urine WBC (Auto) Salicylates 02/03/17 02/03/17 02/04/17 16:59 23:38 05:45 WBC RBC Hgb Hct MCV MCH RDW Plt Count Lymph % (Auto) [place] % (Auto) Eos % (Auto) Seg Neutrophils % Seg Neuts % (Manual) Lymphocytes % (Manual) Seg Neutrophils # Seg Neutrophils # Man Lymphocytes # (Manual) APTT POC ABG pH ABG pH POC ABG pCO2 POC ABG pO2 ABG pO2 ABG HCO3 ABG Base Excess ABG Hemoglobin VBG pH Oxyhemoglobin Sodium Potassium Chloride Carbon Dioxide BUN Creatinine Glucose POC Glucose 189 H 191 H 251 H Lactic Acid Calcium AST Alkaline Phosphatase CK-MB (CK-2) CK-MB (CK-2) Rel Index Albumin TSH Urine WBC (Auto) Salicylates 02/04/17 02/04/17 02/05/17 11:20 17:20 00:17 WBC RBC Hgb Hct MCV MCH RDW Plt Count Lymph % (Auto) [place] % (Auto) Eos % (Auto) Seg Neutrophils % Seg Neuts % (Manual) Lymphocytes % (Manual) Seg Neutrophils # Seg Neutrophils # Man Lymphocytes # (Manual) APTT POC ABG pH ABG pH POC ABG pCO2 POC ABG pO2 ABG pO2 ABG HCO3 ABG Base Excess ABG Hemoglobin VBG pH Oxyhemoglobin Sodium Potassium Chloride Carbon Dioxide BUN Creatinine Glucose POC Glucose 243 H 163 H 200 H Lactic Acid Calcium AST Alkaline Phosphatase CK-MB (CK-2) CK-MB (CK-2) Rel Index Albumin TSH Urine WBC (Auto) Salicylates 02/05/17 02/05/17 02/05/17 05:38 12:38 16:29 WBC RBC Hgb Hct MCV MCH RDW Plt Count Lymph % (Auto) [place] % (Auto) Eos % (Auto) Seg Neutrophils % Seg Neuts % (Manual) Lymphocytes % (Manual) Seg Neutrophils # Seg Neutrophils # Man Lymphocytes # (Manual) APTT POC ABG pH ABG pH POC ABG pCO2 POC ABG pO2 ABG pO2 ABG HCO3 ABG Base Excess ABG Hemoglobin VBG pH Oxyhemoglobin Sodium Potassium Chloride Carbon Dioxide BUN Creatinine Glucose POC Glucose 248 H 241 H 257 H Lactic Acid Calcium AST Alkaline Phosphatase CK-MB (CK-2) CK-MB (CK-2) Rel Index Albumin TSH Urine WBC (Auto) Salicylates 02/05/17 02/06/17 02/06/17 23:56 05:30 11:50 WBC RBC Hgb Hct MCV MCH RDW Plt Count Lymph % (Auto) [place] % (Auto) Eos % (Auto) Seg Neutrophils % Seg Neuts % (Manual) Lymphocytes % (Manual) Seg Neutrophils # Seg Neutrophils # Man Lymphocytes # (Manual) APTT POC ABG pH ABG pH POC ABG pCO2 POC ABG pO2 ABG pO2 ABG HCO3 ABG Base Excess ABG Hemoglobin VBG pH Oxyhemoglobin Sodium Potassium Chloride Carbon Dioxide BUN Creatinine Glucose POC Glucose 258 H 120 H 254 H Lactic Acid Calcium AST Alkaline Phosphatase CK-MB (CK-2) CK-MB (CK-2) Rel Index Albumin TSH Urine WBC (Auto) Salicylates 02/06/17 02/06/17 02/07/17 17:11 23:50 05:22 WBC RBC Hgb Hct MCV MCH RDW Plt Count Lymph % (Auto) [place] % (Auto) Eos % (Auto) Seg Neutrophils % Seg Neuts % (Manual) Lymphocytes % (Manual) Seg Neutrophils # Seg Neutrophils # Man Lymphocytes # (Manual) APTT POC ABG pH ABG pH POC ABG pCO2 POC ABG pO2 ABG pO2 ABG HCO3 ABG Base Excess ABG Hemoglobin VBG pH Oxyhemoglobin Sodium Potassium Chloride Carbon Dioxide BUN Creatinine Glucose POC Glucose 149 H 240 H 258 H Lactic Acid Calcium AST Alkaline Phosphatase CK-MB (CK-2) CK-MB (CK-2) Rel Index Albumin TSH Urine WBC (Auto) Salicylates 02/07/17 02/07/17 02/07/17 11:15 18:33 23:59 WBC RBC Hgb Hct MCV MCH RDW Plt Count Lymph % (Auto) [place] % (Auto) Eos % (Auto) Seg Neutrophils % Seg Neuts % (Manual) Lymphocytes % (Manual) Seg Neutrophils # Seg Neutrophils # Man Lymphocytes # (Manual) APTT POC ABG pH ABG pH POC ABG pCO2 POC ABG pO2 ABG pO2 ABG HCO3 ABG Base Excess ABG Hemoglobin VBG pH Oxyhemoglobin Sodium Potassium Chloride Carbon Dioxide BUN Creatinine Glucose POC Glucose 239 H 176 H 186 H Lactic Acid Calcium AST Alkaline Phosphatase CK-MB (CK-2) CK-MB (CK-2) Rel Index Albumin TSH Urine WBC (Auto) Salicylates 02/08/17 02/08/17 02/08/17 06:15 11:55 16:55 WBC RBC Hgb Hct MCV MCH RDW Plt Count Lymph % (Auto) [place] % (Auto) Eos % (Auto) Seg Neutrophils % Seg Neuts % (Manual) Lymphocytes % (Manual) Seg Neutrophils # Seg Neutrophils # Man Lymphocytes # (Manual) APTT POC ABG pH ABG pH POC ABG pCO2 POC ABG pO2 ABG pO2 ABG HCO3 ABG Base Excess ABG Hemoglobin VBG pH Oxyhemoglobin Sodium Potassium Chloride Carbon Dioxide BUN Creatinine Glucose POC Glucose 195 H 129 H 246 H Lactic Acid Calcium AST Alkaline Phosphatase CK-MB (CK-2) CK-MB (CK-2) Rel Index Albumin TSH Urine WBC (Auto) Salicylates 02/08/17 02/09/17 02/09/17 23:51 05:51 07:24 WBC 14.7 H RBC 3.39 L Hgb 8.9 L Hct 26.4 L MCV 78 L MCH 26 L RDW 18.4 H Plt Count 670 H Lymph % (Auto) 11.8 L [place] % (Auto) Eos % (Auto) Seg Neutrophils % 81.2 H Seg Neuts % (Manual) Lymphocytes % (Manual) Seg Neutrophils # 11.9 H Seg Neutrophils # Man Lymphocytes # (Manual) APTT POC ABG pH ABG pH POC ABG pCO2 POC ABG pO2 ABG pO2 ABG HCO3 ABG Base Excess ABG Hemoglobin VBG pH Oxyhemoglobin Sodium Potassium Chloride Carbon Dioxide BUN Creatinine Glucose POC Glucose 262 H 295 H Lactic Acid Calcium AST Alkaline Phosphatase CK-MB (CK-2) CK-MB (CK-2) Rel Index Albumin TSH Urine WBC (Auto) Salicylates 02/09/17 02/09/17 02/09/17 07:24 12:08 18:39 WBC RBC Hgb Hct MCV MCH RDW Plt Count Lymph % (Auto) [place] % (Auto) Eos % (Auto) Seg Neutrophils % Seg Neuts % (Manual) Lymphocytes % (Manual) Seg Neutrophils # Seg Neutrophils # Man Lymphocytes # (Manual) APTT POC ABG pH ABG pH POC ABG pCO2 POC ABG pO2 ABG pO2 ABG HCO3 ABG Base Excess ABG Hemoglobin VBG pH Oxyhemoglobin Sodium Potassium Chloride 95.5 L Carbon Dioxide BUN 52 H Creatinine Glucose 277 H POC Glucose 236 H 151 H Lactic Acid Calcium AST Alkaline Phosphatase CK-MB (CK-2) CK-MB (CK-2) Rel Index Albumin TSH Urine WBC (Auto) Salicylates 02/10/17 02/10/17 02/10/17 00:01 05:44 11:21 WBC RBC Hgb Hct MCV MCH RDW Plt Count Lymph % (Auto) [place] % (Auto) Eos % (Auto) Seg Neutrophils % Seg Neuts % (Manual) Lymphocytes % (Manual) Seg Neutrophils # Seg Neutrophils # Man Lymphocytes # (Manual) APTT POC ABG pH ABG pH POC ABG pCO2 POC ABG pO2 ABG pO2 ABG HCO3 ABG Base Excess ABG Hemoglobin VBG pH Oxyhemoglobin Sodium Potassium Chloride Carbon Dioxide BUN Creatinine Glucose POC Glucose 210 H 201 H 233 H Lactic Acid Calcium AST Alkaline Phosphatase CK-MB (CK-2) CK-MB (CK-2) Rel Index Albumin TSH Urine WBC (Auto) Salicylates 02/10/17 02/10/17 02/11/17 17:29 23:56 05:24 WBC RBC Hgb Hct MCV MCH RDW Plt Count Lymph % (Auto) [place] % (Auto) Eos % (Auto) Seg Neutrophils % Seg Neuts % (Manual) Lymphocytes % (Manual) Seg Neutrophils # Seg Neutrophils # Man Lymphocytes # (Manual) APTT POC ABG pH ABG pH POC ABG pCO2 POC ABG pO2 ABG pO2 ABG HCO3 ABG Base Excess ABG Hemoglobin VBG pH Oxyhemoglobin Sodium Potassium Chloride Carbon Dioxide BUN Creatinine Glucose POC Glucose 167 H 191 H 135 H Lactic Acid Calcium AST Alkaline Phosphatase CK-MB (CK-2) CK-MB (CK-2) Rel Index Albumin TSH Urine WBC (Auto) Salicylates 02/11/17 02/11/17 02/11/17 12:25 17:03 23:59 WBC RBC Hgb Hct MCV MCH RDW Plt Count Lymph % (Auto) [place] % (Auto) Eos % (Auto) Seg Neutrophils % Seg Neuts % (Manual) Lymphocytes % (Manual) Seg Neutrophils # Seg Neutrophils # Man Lymphocytes # (Manual) APTT POC ABG pH ABG pH POC ABG pCO2 POC ABG pO2 ABG pO2 ABG HCO3 ABG Base Excess ABG Hemoglobin VBG pH Oxyhemoglobin Sodium Potassium Chloride Carbon Dioxide BUN Creatinine Glucose POC Glucose 275 H 172 H 215 H Lactic Acid Calcium AST Alkaline Phosphatase CK-MB (CK-2) CK-MB (CK-2) Rel Index Albumin TSH Urine WBC (Auto) Salicylates 02/12/17 02/12/17 02/12/17 05:39 11:33 17:55 WBC RBC Hgb Hct MCV MCH RDW Plt Count Lymph % (Auto) [place] % (Auto) Eos % (Auto) Seg Neutrophils % Seg Neuts % (Manual) Lymphocytes % (Manual) Seg Neutrophils # Seg Neutrophils # Man Lymphocytes # (Manual) APTT POC ABG pH ABG pH POC ABG pCO2 POC ABG pO2 ABG pO2 ABG HCO3 ABG Base Excess ABG Hemoglobin VBG pH Oxyhemoglobin Sodium Potassium Chloride Carbon Dioxide BUN Creatinine Glucose POC Glucose 261 H 217 H 172 H Lactic Acid Calcium AST Alkaline Phosphatase CK-MB (CK-2) CK-MB (CK-2) Rel Index Albumin TSH Urine WBC (Auto) Salicylates 02/13/17 02/13/17 02/13/17 00:25 06:46 11:26 WBC RBC Hgb Hct MCV MCH RDW Plt Count Lymph % (Auto) [place] % (Auto) Eos % (Auto) Seg Neutrophils % Seg Neuts % (Manual) Lymphocytes % (Manual) Seg Neutrophils # Seg Neutrophils # Man Lymphocytes # (Manual) APTT POC ABG pH ABG pH POC ABG pCO2 POC ABG pO2 ABG pO2 ABG HCO3 ABG Base Excess ABG Hemoglobin VBG pH Oxyhemoglobin Sodium Potassium Chloride Carbon Dioxide BUN Creatinine Glucose POC Glucose 207 H 219 H 231 H Lactic Acid Calcium AST Alkaline Phosphatase CK-MB (CK-2) CK-MB (CK-2) Rel Index Albumin TSH Urine WBC (Auto) Salicylates 02/13/17 02/13/17 02/14/17 17:12 23:44 05:44 WBC RBC Hgb Hct MCV MCH RDW Plt Count Lymph % (Auto) [place] % (Auto) Eos % (Auto) Seg Neutrophils % Seg Neuts % (Manual) Lymphocytes % (Manual) Seg Neutrophils # Seg Neutrophils # Man Lymphocytes # (Manual) APTT POC ABG pH ABG pH POC ABG pCO2 POC ABG pO2 ABG pO2 ABG HCO3 ABG Base Excess ABG Hemoglobin VBG pH Oxyhemoglobin Sodium Potassium Chloride Carbon Dioxide BUN Creatinine Glucose POC Glucose 190 H 256 H 184 H Lactic Acid Calcium AST Alkaline Phosphatase CK-MB (CK-2) CK-MB (CK-2) Rel Index Albumin TSH Urine WBC (Auto) Salicylates 02/14/17 02/14/17 02/14/17 12:21 17:57 23:18 WBC RBC Hgb Hct MCV MCH RDW Plt Count Lymph % (Auto) [place] % (Auto) Eos % (Auto) Seg Neutrophils % Seg Neuts % (Manual) Lymphocytes % (Manual) Seg Neutrophils # Seg Neutrophils # Man Lymphocytes # (Manual) APTT POC ABG pH ABG pH POC ABG pCO2 POC ABG pO2 ABG pO2 ABG HCO3 ABG Base Excess ABG Hemoglobin VBG pH Oxyhemoglobin Sodium Potassium Chloride Carbon Dioxide BUN Creatinine Glucose POC Glucose 233 H 155 H 165 H Lactic Acid Calcium AST Alkaline Phosphatase CK-MB (CK-2) CK-MB (CK-2) Rel Index Albumin TSH Urine WBC (Auto) Salicylates 02/15/17 02/15/17 02/15/17 05:33 11:45 17:20 WBC RBC Hgb Hct MCV MCH RDW Plt Count Lymph % (Auto) [place] % (Auto) Eos % (Auto) Seg Neutrophils % Seg Neuts % (Manual) Lymphocytes % (Manual) Seg Neutrophils # Seg Neutrophils # Man Lymphocytes # (Manual) APTT POC ABG pH ABG pH POC ABG pCO2 POC ABG pO2 ABG pO2 ABG HCO3 ABG Base Excess ABG Hemoglobin VBG pH Oxyhemoglobin Sodium Potassium Chloride Carbon Dioxide BUN Creatinine Glucose POC Glucose 239 H 130 H 189 H Lactic Acid Calcium AST Alkaline Phosphatase CK-MB (CK-2) CK-MB (CK-2) Rel Index Albumin TSH Urine WBC (Auto) Salicylates 02/16/17 02/16/17 02/16/17 00:14 05:09 12:31 WBC RBC Hgb Hct MCV MCH RDW Plt Count Lymph % (Auto) [place] % (Auto) Eos % (Auto) Seg Neutrophils % Seg Neuts % (Manual) Lymphocytes % (Manual) Seg Neutrophils # Seg Neutrophils # Man Lymphocytes # (Manual) APTT POC ABG pH ABG pH POC ABG pCO2 POC ABG pO2 ABG pO2 ABG HCO3 ABG Base Excess ABG Hemoglobin VBG pH Oxyhemoglobin Sodium Potassium Chloride Carbon Dioxide BUN Creatinine Glucose POC Glucose 197 H 226 H 178 H Lactic Acid Calcium AST Alkaline Phosphatase CK-MB (CK-2) CK-MB (CK-2) Rel Index Albumin TSH Urine WBC (Auto) Salicylates 02/16/17 02/16/17 02/17/17 16:35 23:49 05:37 WBC RBC Hgb Hct MCV MCH RDW Plt Count Lymph % (Auto) [place] % (Auto) Eos % (Auto) Seg Neutrophils % Seg Neuts % (Manual) Lymphocytes % (Manual) Seg Neutrophils # Seg Neutrophils # Man Lymphocytes # (Manual) APTT POC ABG pH ABG pH POC ABG pCO2 POC ABG pO2 ABG pO2 ABG HCO3 ABG Base Excess ABG Hemoglobin VBG pH Oxyhemoglobin Sodium Potassium Chloride Carbon Dioxide BUN Creatinine Glucose POC Glucose 174 H 62 L 153 H Lactic Acid Calcium AST Alkaline Phosphatase CK-MB (CK-2) CK-MB (CK-2) Rel Index Albumin TSH Urine WBC (Auto) Salicylates 02/17/17 02/17/17 02/17/17 11:39 17:02 22:24 WBC RBC Hgb Hct MCV MCH RDW Plt Count Lymph % (Auto) [place] % (Auto) Eos % (Auto) Seg Neutrophils % Seg Neuts % (Manual) Lymphocytes % (Manual) Seg Neutrophils # Seg Neutrophils # Man Lymphocytes # (Manual) APTT POC ABG pH ABG pH POC ABG pCO2 POC ABG pO2 ABG pO2 ABG HCO3 ABG Base Excess ABG Hemoglobin VBG pH Oxyhemoglobin Sodium Potassium Chloride Carbon Dioxide BUN Creatinine Glucose POC Glucose 231 H 112 H 116 H Lactic Acid Calcium AST Alkaline Phosphatase CK-MB (CK-2) CK-MB (CK-2) Rel Index Albumin TSH Urine WBC (Auto) Salicylates 02/18/17 02/19/17 02/19/17 15:34 05:09 07:57 WBC RBC Hgb Hct MCV MCH RDW Plt Count Lymph % (Auto) [place] % (Auto) Eos % (Auto) Seg Neutrophils % Seg Neuts % (Manual) Lymphocytes % (Manual) Seg Neutrophils # Seg Neutrophils # Man Lymphocytes # (Manual) APTT POC ABG pH ABG pH POC ABG pCO2 POC ABG pO2 ABG pO2 ABG HCO3 ABG Base Excess ABG Hemoglobin VBG pH Oxyhemoglobin Sodium Potassium Chloride Carbon Dioxide BUN Creatinine Glucose POC Glucose 215 H 218 H 283 H Lactic Acid Calcium AST Alkaline Phosphatase CK-MB (CK-2) CK-MB (CK-2) Rel Index Albumin TSH Urine WBC (Auto) Salicylates 02/19/17 02/19/17 02/20/17 14:49 22:10 05:10 WBC RBC Hgb Hct MCV MCH RDW Plt Count Lymph % (Auto) [place] % (Auto) Eos % (Auto) Seg Neutrophils % Seg Neuts % (Manual) Lymphocytes % (Manual) Seg Neutrophils # Seg Neutrophils # Man Lymphocytes # (Manual) APTT POC ABG pH ABG pH POC ABG pCO2 POC ABG pO2 ABG pO2 ABG HCO3 ABG Base Excess ABG Hemoglobin VBG pH Oxyhemoglobin Sodium Potassium Chloride Carbon Dioxide BUN Creatinine Glucose POC Glucose 290 H 169 H 209 H Lactic Acid Calcium AST Alkaline Phosphatase CK-MB (CK-2) CK-MB (CK-2) Rel Index Albumin TSH Urine WBC (Auto) Salicylates 02/20/17 02/20/17 02/21/17 15:05 21:52 02:00 WBC RBC Hgb Hct MCV MCH RDW Plt Count Lymph % (Auto) [place] % (Auto) Eos % (Auto) Seg Neutrophils % Seg Neuts % (Manual) Lymphocytes % (Manual) Seg Neutrophils # Seg Neutrophils # Man Lymphocytes # (Manual) APTT POC ABG pH ABG pH POC ABG pCO2 POC ABG pO2 ABG pO2 ABG HCO3 ABG Base Excess ABG Hemoglobin VBG pH Oxyhemoglobin Sodium Potassium Chloride Carbon Dioxide BUN Creatinine Glucose POC Glucose 172 H 209 H 216 H Lactic Acid Calcium AST Alkaline Phosphatase CK-MB (CK-2) CK-MB (CK-2) Rel Index Albumin TSH Urine WBC (Auto) Salicylates 02/21/17 02/21/17 02/21/17 04:54 14:43 17:47 WBC RBC Hgb Hct MCV MCH RDW Plt Count Lymph % (Auto) [place] % (Auto) Eos % (Auto) Seg Neutrophils % Seg Neuts % (Manual) Lymphocytes % (Manual) Seg Neutrophils # Seg Neutrophils # Man Lymphocytes # (Manual) APTT POC ABG pH ABG pH POC ABG pCO2 POC ABG pO2 ABG pO2 ABG HCO3 ABG Base Excess ABG Hemoglobin VBG pH Oxyhemoglobin Sodium Potassium Chloride Carbon Dioxide BUN Creatinine Glucose POC Glucose 227 H 290 H 220 H Lactic Acid Calcium AST Alkaline Phosphatase CK-MB (CK-2) CK-MB (CK-2) Rel Index Albumin TSH Urine WBC (Auto) Salicylates 02/21/17 02/22/17 02/22/17 22:02 04:52 15:25 WBC RBC Hgb Hct MCV MCH RDW Plt Count Lymph % (Auto) [place] % (Auto) Eos % (Auto) Seg Neutrophils % Seg Neuts % (Manual) Lymphocytes % (Manual) Seg Neutrophils # Seg Neutrophils # Man Lymphocytes # (Manual) APTT POC ABG pH ABG pH POC ABG pCO2 POC ABG pO2 ABG pO2 ABG HCO3 ABG Base Excess ABG Hemoglobin VBG pH Oxyhemoglobin Sodium Potassium Chloride Carbon Dioxide BUN Creatinine Glucose POC Glucose 246 H 212 H 236 H Lactic Acid Calcium AST Alkaline Phosphatase CK-MB (CK-2) CK-MB (CK-2) Rel Index Albumin TSH Urine WBC (Auto) Salicylates 02/22/17 02/23/17 02/23/17 21:33 06:04 10:00 WBC RBC Hgb Hct MCV MCH RDW Plt Count Lymph % (Auto) [place] % (Auto) Eos % (Auto) Seg Neutrophils % Seg Neuts % (Manual) Lymphocytes % (Manual) Seg Neutrophils # Seg Neutrophils # Man Lymphocytes # (Manual) APTT POC ABG pH ABG pH POC ABG pCO2 POC ABG pO2 ABG pO2 ABG HCO3 ABG Base Excess ABG Hemoglobin VBG pH Oxyhemoglobin Sodium Potassium Chloride Carbon Dioxide BUN Creatinine Glucose POC Glucose 255 H 208 H 174 H Lactic Acid Calcium AST Alkaline Phosphatase CK-MB (CK-2) CK-MB (CK-2) Rel Index Albumin TSH Urine WBC (Auto) Salicylates 02/23/17 02/23/17 02/23/17 12:52 17:15 21:51 WBC RBC Hgb Hct MCV MCH RDW Plt Count Lymph % (Auto) [place] % (Auto) Eos % (Auto) Seg Neutrophils % Seg Neuts % (Manual) Lymphocytes % (Manual) Seg Neutrophils # Seg Neutrophils # Man Lymphocytes # (Manual) APTT POC ABG pH ABG pH POC ABG pCO2 POC ABG pO2 ABG pO2 ABG HCO3 ABG Base Excess ABG Hemoglobin VBG pH Oxyhemoglobin Sodium Potassium Chloride Carbon Dioxide BUN Creatinine Glucose POC Glucose 203 H 269 H 205 H Lactic Acid Calcium AST Alkaline Phosphatase CK-MB (CK-2) CK-MB (CK-2) Rel Index Albumin TSH Urine WBC (Auto) Salicylates 02/24/17 02/24/17 02/24/17 10:23 17:45 21:24 WBC RBC Hgb Hct MCV MCH RDW Plt Count Lymph % (Auto) [place] % (Auto) Eos % (Auto) Seg Neutrophils % Seg Neuts % (Manual) Lymphocytes % (Manual) Seg Neutrophils # Seg Neutrophils # Man Lymphocytes # (Manual) APTT POC ABG pH ABG pH POC ABG pCO2 POC ABG pO2 ABG pO2 ABG HCO3 ABG Base Excess ABG Hemoglobin VBG pH Oxyhemoglobin Sodium Potassium Chloride Carbon Dioxide BUN Creatinine Glucose POC Glucose 280 H 239 H 254 H Lactic Acid Calcium AST Alkaline Phosphatase CK-MB (CK-2) CK-MB (CK-2) Rel Index Albumin TSH Urine WBC (Auto) Salicylates 02/25/17 02/25/17 02/25/17 02:12 05:17 14:32 WBC RBC Hgb Hct MCV MCH RDW Plt Count Lymph % (Auto) [place] % (Auto) Eos % (Auto) Seg Neutrophils % Seg Neuts % (Manual) Lymphocytes % (Manual) Seg Neutrophils # Seg Neutrophils # Man Lymphocytes # (Manual) APTT POC ABG pH ABG pH POC ABG pCO2 POC ABG pO2 ABG pO2 ABG HCO3 ABG Base Excess ABG Hemoglobin VBG pH Oxyhemoglobin Sodium Potassium Chloride Carbon Dioxide BUN Creatinine Glucose POC Glucose 296 H 332 H 353 H Lactic Acid Calcium AST Alkaline Phosphatase CK-MB (CK-2) CK-MB (CK-2) Rel Index Albumin TSH Urine WBC (Auto) Salicylates 02/25/17 02/26/17 02/26/17 22:14 00:37 05:52 WBC RBC Hgb Hct MCV MCH RDW Plt Count Lymph % (Auto) [place] % (Auto) Eos % (Auto) Seg Neutrophils % Seg Neuts % (Manual) Lymphocytes % (Manual) Seg Neutrophils # Seg Neutrophils # Man Lymphocytes # (Manual) APTT POC ABG pH ABG pH POC ABG pCO2 POC ABG pO2 ABG pO2 ABG HCO3 ABG Base Excess ABG Hemoglobin VBG pH Oxyhemoglobin Sodium Potassium Chloride Carbon Dioxide BUN Creatinine Glucose POC Glucose 201 H 233 H 269 H Lactic Acid Calcium AST Alkaline Phosphatase CK-MB (CK-2) CK-MB (CK-2) Rel Index Albumin TSH Urine WBC (Auto) Salicylates 02/26/17 02/26/17 02/26/17 11:48 13:49 21:26 WBC RBC Hgb Hct MCV MCH RDW Plt Count Lymph % (Auto) [place] % (Auto) Eos % (Auto) Seg Neutrophils % Seg Neuts % (Manual) Lymphocytes % (Manual) Seg Neutrophils # Seg Neutrophils # Man Lymphocytes # (Manual) APTT POC ABG pH ABG pH POC ABG pCO2 POC ABG pO2 ABG pO2 ABG HCO3 ABG Base Excess ABG Hemoglobin VBG pH Oxyhemoglobin Sodium Potassium Chloride Carbon Dioxide BUN Creatinine Glucose POC Glucose 333 H 322 H 244 H Lactic Acid Calcium AST Alkaline Phosphatase CK-MB (CK-2) CK-MB (CK-2) Rel Index Albumin TSH Urine WBC (Auto) Salicylates 02/27/17 02/27/17 02/27/17 05:27 13:51 21:48 WBC RBC Hgb Hct MCV MCH RDW Plt Count Lymph % (Auto) [place] % (Auto) Eos % (Auto) Seg Neutrophils % Seg Neuts % (Manual) Lymphocytes % (Manual) Seg Neutrophils # Seg Neutrophils # Man Lymphocytes # (Manual) APTT POC ABG pH ABG pH POC ABG pCO2 POC ABG pO2 ABG pO2 ABG HCO3 ABG Base Excess ABG Hemoglobin VBG pH Oxyhemoglobin Sodium Potassium Chloride Carbon Dioxide BUN Creatinine Glucose POC Glucose 217 H 239 H 254 H Lactic Acid Calcium AST Alkaline Phosphatase CK-MB (CK-2) CK-MB (CK-2) Rel Index Albumin TSH Urine WBC (Auto) Salicylates 02/28/17 02/28/17 02/28/17 05:38 11:00 19:44 WBC RBC Hgb Hct MCV MCH RDW Plt Count Lymph % (Auto) [place] % (Auto) Eos % (Auto) Seg Neutrophils % Seg Neuts % (Manual) Lymphocytes % (Manual) Seg Neutrophils # Seg Neutrophils # Man Lymphocytes # (Manual) APTT POC ABG pH ABG pH POC ABG pCO2 POC ABG pO2 ABG pO2 ABG HCO3 ABG Base Excess ABG Hemoglobin VBG pH Oxyhemoglobin Sodium Potassium Chloride Carbon Dioxide BUN Creatinine Glucose POC Glucose 325 H 203 H 116 H Lactic Acid Calcium AST Alkaline Phosphatase CK-MB (CK-2) CK-MB (CK-2) Rel Index Albumin TSH Urine WBC (Auto) Salicylates 03/01/17 03/01/17 03/01/17 00:08 05:31 12:17 WBC RBC Hgb Hct MCV MCH RDW Plt Count Lymph % (Auto) [place] % (Auto) Eos % (Auto) Seg Neutrophils % Seg Neuts % (Manual) Lymphocytes % (Manual) Seg Neutrophils # Seg Neutrophils # Man Lymphocytes # (Manual) APTT POC ABG pH ABG pH POC ABG pCO2 POC ABG pO2 ABG pO2 ABG HCO3 ABG Base Excess ABG Hemoglobin VBG pH Oxyhemoglobin Sodium Potassium Chloride Carbon Dioxide BUN Creatinine Glucose POC Glucose 202 H 183 H 184 H Lactic Acid Calcium AST Alkaline Phosphatase CK-MB (CK-2) CK-MB (CK-2) Rel Index Albumin TSH Urine WBC (Auto) Salicylates 03/02/17 03/02/17 03/02/17 00:12 05:58 18:22 WBC RBC Hgb Hct MCV MCH RDW Plt Count Lymph % (Auto) [place] % (Auto) Eos % (Auto) Seg Neutrophils % Seg Neuts % (Manual) Lymphocytes % (Manual) Seg Neutrophils # Seg Neutrophils # Man Lymphocytes # (Manual) APTT POC ABG pH ABG pH POC ABG pCO2 POC ABG pO2 ABG pO2 ABG HCO3 ABG Base Excess ABG Hemoglobin VBG pH Oxyhemoglobin Sodium Potassium Chloride Carbon Dioxide BUN Creatinine Glucose POC Glucose 117 H 176 H 156 H Lactic Acid Calcium AST Alkaline Phosphatase CK-MB (CK-2) CK-MB (CK-2) Rel Index Albumin TSH Urine WBC (Auto) Salicylates 03/02/17 03/03/17 03/03/17 23:51 05:44 11:32 WBC RBC Hgb Hct MCV MCH RDW Plt Count Lymph % (Auto) [place] % (Auto) Eos % (Auto) Seg Neutrophils % Seg Neuts % (Manual) Lymphocytes % (Manual) Seg Neutrophils # Seg Neutrophils # Man Lymphocytes # (Manual) APTT POC ABG pH ABG pH POC ABG pCO2 POC ABG pO2 ABG pO2 ABG HCO3 ABG Base Excess ABG Hemoglobin VBG pH Oxyhemoglobin Sodium Potassium Chloride Carbon Dioxide BUN Creatinine Glucose POC Glucose 211 H 117 H 133 H Lactic Acid Calcium AST Alkaline Phosphatase CK-MB (CK-2) CK-MB (CK-2) Rel Index Albumin TSH Urine WBC (Auto) Salicylates 03/03/17 03/03/17 03/04/17 17:43 23:17 05:30 WBC RBC Hgb Hct MCV MCH RDW Plt Count Lymph % (Auto) [place] % (Auto) Eos % (Auto) Seg Neutrophils % Seg Neuts % (Manual) Lymphocytes % (Manual) Seg Neutrophils # Seg Neutrophils # Man Lymphocytes # (Manual) APTT POC ABG pH ABG pH POC ABG pCO2 POC ABG pO2 ABG pO2 ABG HCO3 ABG Base Excess ABG Hemoglobin VBG pH Oxyhemoglobin Sodium Potassium Chloride Carbon Dioxide BUN Creatinine Glucose POC Glucose 206 H 170 H 126 H Lactic Acid Calcium AST Alkaline Phosphatase CK-MB (CK-2) CK-MB (CK-2) Rel Index Albumin TSH Urine WBC (Auto) Salicylates 03/04/17 03/04/17 03/05/17 12:17 17:27 05:20 WBC RBC Hgb Hct MCV MCH RDW Plt Count Lymph % (Auto) [place] % (Auto) Eos % (Auto) Seg Neutrophils % Seg Neuts % (Manual) Lymphocytes % (Manual) Seg Neutrophils # Seg Neutrophils # Man Lymphocytes # (Manual) APTT POC ABG pH ABG pH POC ABG pCO2 POC ABG pO2 ABG pO2 ABG HCO3 ABG Base Excess ABG Hemoglobin VBG pH Oxyhemoglobin Sodium Potassium Chloride Carbon Dioxide BUN Creatinine Glucose POC Glucose 135 H 121 H 185 H Lactic Acid Calcium AST Alkaline Phosphatase CK-MB (CK-2) CK-MB (CK-2) Rel Index Albumin TSH Urine WBC (Auto) Salicylates 03/05/17 03/06/17 03/06/17 11:50 11:52 17:34 WBC RBC Hgb Hct MCV MCH RDW Plt Count Lymph % (Auto) [place] % (Auto) Eos % (Auto) Seg Neutrophils % Seg Neuts % (Manual) Lymphocytes % (Manual) Seg Neutrophils # Seg Neutrophils # Man Lymphocytes # (Manual) APTT POC ABG pH ABG pH POC ABG pCO2 POC ABG pO2 ABG pO2 ABG HCO3 ABG Base Excess ABG Hemoglobin VBG pH Oxyhemoglobin Sodium Potassium Chloride Carbon Dioxide BUN Creatinine Glucose POC Glucose 116 H 133 H 181 H Lactic Acid Calcium AST Alkaline Phosphatase CK-MB (CK-2) CK-MB (CK-2) Rel Index Albumin TSH Urine WBC (Auto) Salicylates 03/07/17 03/07/17 03/07/17 05:21 11:36 17:49 WBC RBC Hgb Hct MCV MCH RDW Plt Count Lymph % (Auto) [place] % (Auto) Eos % (Auto) Seg Neutrophils % Seg Neuts % (Manual) Lymphocytes % (Manual) Seg Neutrophils # Seg Neutrophils # Man Lymphocytes # (Manual) APTT POC ABG pH ABG pH POC ABG pCO2 POC ABG pO2 ABG pO2 ABG HCO3 ABG Base Excess ABG Hemoglobin VBG pH Oxyhemoglobin Sodium Potassium Chloride Carbon Dioxide BUN Creatinine Glucose POC Glucose 159 H 137 H 158 H Lactic Acid Calcium AST Alkaline Phosphatase CK-MB (CK-2) CK-MB (CK-2) Rel Index Albumin TSH Urine WBC (Auto) Salicylates 03/08/17 03/08/17 03/08/17 05:51 13:58 23:50 WBC RBC Hgb Hct MCV MCH RDW Plt Count Lymph % (Auto) [place] % (Auto) Eos % (Auto) Seg Neutrophils % Seg Neuts % (Manual) Lymphocytes % (Manual) Seg Neutrophils # Seg Neutrophils # Man Lymphocytes # (Manual) APTT POC ABG pH ABG pH POC ABG pCO2 POC ABG pO2 ABG pO2 ABG HCO3 ABG Base Excess ABG Hemoglobin VBG pH Oxyhemoglobin Sodium Potassium Chloride Carbon Dioxide BUN Creatinine Glucose POC Glucose 122 H 182 H 114 H Lactic Acid Calcium AST Alkaline Phosphatase CK-MB (CK-2) CK-MB (CK-2) Rel Index Albumin TSH Urine WBC (Auto) Salicylates 03/09/17 03/09/17 03/09/17 05:21 05:51 05:51 WBC RBC 3.61 L Hgb 9.5 L Hct 28.3 L MCV 79 L MCH 26 L RDW 17.8 H Plt Count Lymph % (Auto) [place] % (Auto) Eos % (Auto) Seg Neutrophils % Seg Neuts % (Manual) Lymphocytes % (Manual) Seg Neutrophils # Seg Neutrophils # Man Lymphocytes # (Manual) APTT POC ABG pH ABG pH POC ABG pCO2 POC ABG pO2 ABG pO2 ABG HCO3 ABG Base Excess ABG Hemoglobin VBG pH Oxyhemoglobin Sodium 134 L Potassium Chloride 95.5 L Carbon Dioxide BUN 33 H Creatinine 0.5 L Glucose 143 H POC Glucose 153 H Lactic Acid Calcium AST Alkaline Phosphatase CK-MB (CK-2) CK-MB (CK-2) Rel Index Albumin TSH Urine WBC (Auto) Salicylates 03/09/17 03/09/17 03/09/17 12:10 18:13 21:00 WBC RBC Hgb Hct MCV MCH RDW Plt Count Lymph % (Auto) [place] % (Auto) Eos % (Auto) Seg Neutrophils % Seg Neuts % (Manual) Lymphocytes % (Manual) Seg Neutrophils # Seg Neutrophils # Man Lymphocytes # (Manual) APTT POC ABG pH ABG pH POC ABG pCO2 POC ABG pO2 ABG pO2 ABG HCO3 ABG Base Excess ABG Hemoglobin VBG pH Oxyhemoglobin Sodium Potassium Chloride Carbon Dioxide BUN Creatinine Glucose POC Glucose 203 H 221 H 198 H Lactic Acid Calcium AST Alkaline Phosphatase CK-MB (CK-2) CK-MB (CK-2) Rel Index Albumin TSH Urine WBC (Auto) Salicylates 03/09/17 03/10/17 03/10/17 23:58 05:09 05:09 WBC RBC Hgb 10.3 L Hct 30.5 L MCV 78 L MCH 26 L RDW 17.9 H Plt Count Lymph % (Auto) [place] % (Auto) 10.0 H Eos % (Auto) 6.0 H Seg Neutrophils % Seg Neuts % (Manual) Lymphocytes % (Manual) Seg Neutrophils # Seg Neutrophils # Man Lymphocytes # (Manual) APTT POC ABG pH ABG pH POC ABG pCO2 POC ABG pO2 ABG pO2 ABG HCO3 ABG Base Excess ABG Hemoglobin VBG pH Oxyhemoglobin Sodium 132 L Potassium Chloride 92.2 L Carbon Dioxide BUN 33 H Creatinine 0.5 L Glucose 50 L POC Glucose 167 H Lactic Acid Calcium AST Alkaline Phosphatase CK-MB (CK-2) CK-MB (CK-2) Rel Index Albumin TSH Urine WBC (Auto) Salicylates 03/10/17 03/10/17 03/10/17 05:33 05:34 11:48 WBC RBC Hgb Hct MCV MCH RDW Plt Count Lymph % (Auto) [place] % (Auto) Eos % (Auto) Seg Neutrophils % Seg Neuts % (Manual) Lymphocytes % (Manual) Seg Neutrophils # Seg Neutrophils # Man Lymphocytes # (Manual) APTT POC ABG pH ABG pH POC ABG pCO2 POC ABG pO2 ABG pO2 ABG HCO3 ABG Base Excess ABG Hemoglobin VBG pH Oxyhemoglobin Sodium Potassium Chloride Carbon Dioxide BUN Creatinine Glucose POC Glucose 52 L 53 L 148 H Lactic Acid Calcium AST Alkaline Phosphatase CK-MB (CK-2) CK-MB (CK-2) Rel Index Albumin TSH Urine WBC (Auto) Salicylates 03/10/17 03/10/17 03/11/17 17:53 23:47 05:18 WBC RBC Hgb Hct MCV MCH RDW Plt Count Lymph % (Auto) [place] % (Auto) Eos % (Auto) Seg Neutrophils % Seg Neuts % (Manual) Lymphocytes % (Manual) Seg Neutrophils # Seg Neutrophils # Man Lymphocytes # (Manual) APTT POC ABG pH ABG pH POC ABG pCO2 POC ABG pO2 ABG pO2 ABG HCO3 ABG Base Excess ABG Hemoglobin VBG pH Oxyhemoglobin Sodium Potassium Chloride Carbon Dioxide BUN Creatinine Glucose POC Glucose 189 H 398 H 126 H Lactic Acid Calcium AST Alkaline Phosphatase CK-MB (CK-2) CK-MB (CK-2) Rel Index Albumin TSH Urine WBC (Auto) Salicylates 03/11/17 03/11/17 03/11/17 11:53 17:30 23:10 WBC RBC Hgb Hct MCV MCH RDW Plt Count Lymph % (Auto) [place] % (Auto) Eos % (Auto) Seg Neutrophils % Seg Neuts % (Manual) Lymphocytes % (Manual) Seg Neutrophils # Seg Neutrophils # Man Lymphocytes # (Manual) APTT POC ABG pH ABG pH POC ABG pCO2 POC ABG pO2 ABG pO2 ABG HCO3 ABG Base Excess ABG Hemoglobin VBG pH Oxyhemoglobin Sodium Potassium Chloride Carbon Dioxide BUN Creatinine Glucose POC Glucose 198 H 142 H 244 H Lactic Acid Calcium AST Alkaline Phosphatase CK-MB (CK-2) CK-MB (CK-2) Rel Index Albumin TSH Urine WBC (Auto) Salicylates 03/12/17 03/12/17 03/12/17 04:36 11:49 17:23 WBC RBC Hgb Hct MCV MCH RDW Plt Count Lymph % (Auto) [place] % (Auto) Eos % (Auto) Seg Neutrophils % Seg Neuts % (Manual) Lymphocytes % (Manual) Seg Neutrophils # Seg Neutrophils # Man Lymphocytes # (Manual) APTT POC ABG pH ABG pH POC ABG pCO2 POC ABG pO2 ABG pO2 ABG HCO3 ABG Base Excess ABG Hemoglobin VBG pH Oxyhemoglobin Sodium Potassium Chloride Carbon Dioxide BUN Creatinine Glucose POC Glucose 205 H 197 H 209 H Lactic Acid Calcium AST Alkaline Phosphatase CK-MB (CK-2) CK-MB (CK-2) Rel Index Albumin TSH Urine WBC (Auto) Salicylates 03/12/17 03/13/17 03/13/17 23:51 05:32 11:43 WBC RBC Hgb Hct MCV MCH RDW Plt Count Lymph % (Auto) [place] % (Auto) Eos % (Auto) Seg Neutrophils % Seg Neuts % (Manual) Lymphocytes % (Manual) Seg Neutrophils # Seg Neutrophils # Man Lymphocytes # (Manual) APTT POC ABG pH ABG pH POC ABG pCO2 POC ABG pO2 ABG pO2 ABG HCO3 ABG Base Excess ABG Hemoglobin VBG pH Oxyhemoglobin Sodium Potassium Chloride Carbon Dioxide BUN Creatinine Glucose POC Glucose 210 H 154 H 164 H Lactic Acid Calcium AST Alkaline Phosphatase CK-MB (CK-2) CK-MB (CK-2) Rel Index Albumin TSH Urine WBC (Auto) Salicylates 03/13/17 03/13/17 03/14/17 17:11 23:26 05:42 WBC RBC Hgb Hct MCV MCH RDW Plt Count Lymph % (Auto) [place] % (Auto) Eos % (Auto) Seg Neutrophils % Seg Neuts % (Manual) Lymphocytes % (Manual) Seg Neutrophils # Seg Neutrophils # Man Lymphocytes # (Manual) APTT POC ABG pH ABG pH POC ABG pCO2 POC ABG pO2 ABG pO2 ABG HCO3 ABG Base Excess ABG Hemoglobin VBG pH Oxyhemoglobin Sodium Potassium Chloride Carbon Dioxide BUN Creatinine Glucose POC Glucose 195 H 240 H 230 H Lactic Acid Calcium AST Alkaline Phosphatase CK-MB (CK-2) CK-MB (CK-2) Rel Index Albumin TSH Urine WBC (Auto) Salicylates
[2017-03-14] MEDS: PEPCID PO SCH ×2 (10:28→22:10)
[2017-03-14] MEDS: HEPARIN SUB-Q SCH ×2 (10:28→22:10)
[2017-03-15] MEDS: HumuLIN R SUB-Q SCH ×4 (00:19→21:42)
[2017-03-15] MEDS: SYNTHROID PO SCH (06:19)
[2017-03-15] MEDS: HEPARIN SUB-Q SCH ×2 (09:45→21:43)
[2017-03-15] MEDS: PEPCID PO SCH ×2 (09:45→21:43)
[2017-03-15] MEDS: TYLENOL FEEDTUBE PRN (17:22)
[2017-03-16] MEDS: SYNTHROID PO SCH (06:00)
[2017-03-16] MEDS: HumuLIN R SUB-Q SCH ×3 (07:31→22:10)
--- NOTE | 2017-03-16 09:50 | Progress Note ---
Assessment and Plan Assessment and plan: Hypoglycemic brain injury. Patient was found hypoglycemic. He is now in coma, vegetative state, Unresponsive Persistent vegetative state. Supportive care Metabolic encephalopathy due to hypoglycemia Hypoglycemia/hypothermia, resolved Acute respiratory failure. Intubated, on ventilator. Hyponatremia. Now resolved. Hypothyroidism Diabetes mellitus type 2. Check fingerstick glucose q 6h. Continue Levemir subcut daily Hypertension. BP stable Leukocytosis due to UTI, resolved UTI with ESBL. Patient is DNR- awaiting hospice placement, needs guardianship from the state to give consent, as has no family to give consent History Interval history: Patient found unresponsive, diagnosed with hypoglycemia with brain injury, Still unresponsive, no new events Hospitalist Physical - Physical exam Narrative exam: Gen Appearance: Not in acute distress, malnourished, intubated HEENT: normocephalic, atraumatic Neck: supple, no JVD Lungs: clear to auscultation bilaterally, no crackles or wheezes Heart: S1 and S2 regular, no murmurs, rubs or gallop Abdomen: Soft , non tender, non distended, normal bowel sounds Extremity: No edema, clubbing or cyanosis Neuro : Intubated, Unresponsive, vegetative state - Constitutional Vitals: Temp Pulse Resp BP Pulse Ox 97.5 F L 63 13 132/72 100 03/16/17 00:00 03/16/17 07:00 03/16/17 03:01 03/16/17 07:00 03/16/17 07:00 General appearance: Present: no acute distress, well-nourished Results - Labs CBC & Chem 7: 03/10/17 05:09 03/10/17 05:09 Labs: Laboratory Last Values WBC 5.3 K/mm3 (4.5-11.0) 03/10/17 05:09 RBC 3.92 M/mm3 (3.65-5.03) 03/10/17 05:09 Hgb 10.3 gm/dl (11.8-15.2) L 03/10/17 05:09 Hct 30.5 % (35.5-45.6) L 03/10/17 05:09 MCV 78 fl (84-94) L 03/10/17 05:09 MCH 26 pg (28-32) L 03/10/17 05:09 MCHC 34 % (32-34) 03/10/17 05:09 RDW 17.9 % (13.2-15.2) H 03/10/17 05:09 Plt Count 316 K/mm3 (140-440) 03/10/17 05:09 Lymph % (Auto) 32.9 % (13.4-35.0) 03/10/17 05:09 [place] % (Auto) 10.0 % (0.0-7.3) H 03/10/17 05:09 Eos % (Auto) 6.0 % (0.0-4.3) H 03/10/17 05:09 Baso % (Auto) 0.9 % (0.0-1.8) 03/10/17 05:09 Lymph # 1.7 K/mm3 (1.2-5.4) 03/10/17 05:09 [place] # 0.5 K/mm3 (0.0-0.8) 03/10/17 05:09 Eos # 0.3 K/mm3 (0.0-0.4) 03/10/17 05:09 Baso # 0.0 K/mm3 (0.0-0.1) 03/10/17 05:09 Add Manual Diff Complete 01/10/17 04:30 Total Counted 100 01/10/17 04:30 Seg Neutrophils % 50.2 % (40.0-70.0) 03/10/17 05:09 Seg Neuts % (Manual) 88.0 % (40.0-70.0) H 01/10/17 04:30 Band Neutrophils % 7.0 % 01/10/17 04:30 Lymphocytes % (Manual) 4.0 % (13.4-35.0) L 01/10/17 04:30 Reactive Lymphs % (Man) 0 % 01/10/17 04:30 Monocytes % (Manual) 1.0 % (0.0-7.3) 01/10/17 04:30 Eosinophils % (Manual) 0 % (0.0-4.3) 01/10/17 04:30 Basophils % (Manual) 0 % (0.0-1.8) 01/10/17 04:30 Metamyelocytes % 0 % 01/10/17 04:30 Myelocytes % 0 % 01/10/17 04:30 Promyelocytes % 0 % 01/10/17 04:30 Blast Cells % 0 % 01/10/17 04:30 Nucleated RBC % Not Reportable 01/10/17 04:30 Seg Neutrophils # 2.6 K/mm3 (1.8-7.7) 03/10/17 05:09 Seg Neutrophils # Man 21.2 K/mm3 (1.8-7.7) H 01/10/17 04:30 Band Neutrophils # 1.7 K/mm3 01/10/17 04:30 Lymphocytes # (Manual) 1.0 K/mm3 (1.2-5.4) L 01/10/17 04:30 Abs React Lymphs (Man) 0.0 K/mm3 01/10/17 04:30 Monocytes # (Manual) 0.2 K/mm3 (0.0-0.8) 01/10/17 04:30 Eosinophils # (Manual) 0.0 K/mm3 (0.0-0.4) 01/10/17 04:30 Basophils # (Manual) 0.0 K/mm3 (0.0-0.1) 01/10/17 04:30 Metamyelocytes # 0.0 K/mm3 01/10/17 04:30 Myelocytes # 0.0 K/mm3 01/10/17 04:30 Promyelocytes # 0.0 K/mm3 01/10/17 04:30 Blast Cells # 0.0 K/mm3 01/10/17 04:30 WBC Morphology Not Reportable 01/10/17 04:30 Hypersegmented Neuts Not Reportable 01/10/17 04:30 Hyposegmented Neuts Not Reportable 01/10/17 04:30 Hypogranular Neuts Not Reportable 01/10/17 04:30 Smudge Cells Not Reportable 01/10/17 04:30 Toxic Granulation Not Reportable 01/10/17 04:30 Toxic Vacuolation Not Reportable 01/10/17 04:30 Dohle Bodies Not Reportable 01/10/17 04:30 Pelger-Huet Anomaly Not Reportable 01/10/17 04:30 [place] Rods Not Reportable 01/10/17 04:30 Platelet Estimate Consistent w auto 01/10/17 04:30 Clumped Platelets Not Reportable 01/10/17 04:30 Plt Clumps, EDTA Not Reportable 01/10/17 04:30 Large Platelets Not Reportable 01/10/17 04:30 Giant Platelets Not Reportable 01/10/17 04:30 Platelet Satelliting Not Reportable 01/10/17 04:30 Plt Morphology Comment Not Reportable 01/10/17 04:30 RBC Morphology Not Reportable 01/10/17 04:30 Dimorphic RBCs Not Reportable 01/10/17 04:30 Polychromasia Not Reportable 01/10/17 04:30 Hypochromasia 1+ 01/10/17 04:30 Poikilocytosis Not Reportable 01/10/17 04:30 Anisocytosis Not Reportable 01/10/17 04:30 Microcytosis Not Reportable 01/10/17 04:30 Macrocytosis Not Reportable 01/10/17 04:30 Spherocytes Not Reportable 01/10/17 04:30 Pappenheimer Bodies Not Reportable 01/10/17 04:30 Sickle Cells Not Reportable 01/10/17 04:30 Target Cells Not Reportable 01/10/17 04:30 Tear Drop Cells Not Reportable 01/10/17 04:30 Ovalocytes Not Reportable 01/10/17 04:30 Helmet Cells Not Reportable 01/10/17 04:30 [place] Bodies Not Reportable 01/10/17 04:30 [place] Rings Not Reportable 01/10/17 04:30 Jessica Cells Not Reportable 01/10/17 04:30 Bite Cells Not Reportable 01/10/17 04:30 Crenated Cell Not Reportable 01/10/17 04:30 Elliptocytes Not Reportable 01/10/17 04:30 Acanthocytes (Spur) Not Reportable 01/10/17 04:30 Rouleaux Not Reportable 01/10/17 04:30 Hemoglobin C Crystals Not Reportable 01/10/17 04:30 Schistocytes Not Reportable 01/10/17 04:30 Malaria parasites Not Reportable 01/10/17 04:30 Kyle Bodies Not Reportable 01/10/17 04:30 Hem Pathologist Commnt No 01/10/17 04:30 PT 14.1 Sec. (12.2-14.9) 01/17/17 04:10 INR 1.04 (0.87-1.13) 01/17/17 04:10 APTT 36.6 Sec. (24.2-36.6) 01/17/17 04:10 POC ABG pH 7.442 (7.35-7.45) 01/31/17 18:55 ABG pH 7.420 pH Units (7.350-7.450) 01/17/17 04:35 POC ABG pCO2 32.8 (35-45) L 01/31/17 18:55 ABG pCO2 34.5 mm Hg 01/17/17 04:35 POC ABG pO2 82 (80-105) 01/31/17 18:55 ABG pO2 160.3 mm Hg (80.0-90.0) H 01/17/17 04:35 POC ABG HCO3 22.4 01/31/17 18:55 ABG HCO3 21.9 mmol/L (20.0-26.0) 01/17/17 04:35 POC ABG Total CO2 23 01/31/17 18:55 POC ABG O2 Sat 97 01/31/17 18:55 ABG O2 Saturation 99.0 % (95.0-99.0) 01/17/17 04:35 ABG O2 Content 11.1 (0.0-44) 01/17/17 04:35 POC ABG Base Excess -2 01/31/17 18:55 ABG Base Excess -2.3 mmol/L (-2.0-3.0) L 01/17/17 04:35 ABG Hemoglobin 7.9 gm/dl (14.0-18.0) L 01/17/17 04:35 ABG Carboxyhemoglobin 1.5 % (0.0-5.0) 01/17/17 04:35 ABG Methemoglobin 0.5 % (0.0-1.5) 01/17/17 04:35 VBG pH 7.284 (7.320-7.420) L 01/09/17 10:16 Oxyhemoglobin 97.1 % (95.0-99.0) 01/17/17 04:35 FiO2 25 % 01/31/17 18:55 Sodium 132 mmol/L (137-145) L 03/10/17 05:09 Potassium 4.1 mmol/L (3.6-5.0) 03/10/17 05:09 Chloride 92.2 mmol/L (98-107) L 03/10/17 05:09 Carbon Dioxide 26 mmol/L (22-30) 03/10/17 05:09 Anion Gap 18 mmol/L 03/10/17 05:09 BUN 33 mg/dL (9-20) H 03/10/17 05:09 Creatinine 0.5 mg/dL (0.8-1.5) L 03/10/17 05:09 Estimated GFR > 60 ml/min 03/10/17 05:09 BUN/Creatinine Ratio 66 % 03/10/17 05:09 Glucose 50 mg/dL (75-100) L 03/10/17 05:09 POC Glucose 248 (70-105) H 03/16/17 05:52 Lactic Acid 0.80 mmol/L (0.7-2.0) 01/30/17 11:49 Calcium 8.9 mg/dL (8.4-10.2) 03/10/17 05:09 Phosphorus 3.60 mg/dL (2.5-4.5) 01/22/17 04:00 Magnesium 2.10 mg/dL (1.7-2.3) 01/22/17 04:00 Total Bilirubin 0.30 mg/dL (0.1-1.2) 01/22/17 04:00 AST 44 units/L (5-40) H 01/22/17 04:00 ALT 23 units/L (7-56) 01/22/17 04:00 Alkaline Phosphatase 379 units/L (35-129) H 01/22/17 04:00 Ammonia 35.0 umol/L (25-60) 01/09/17 10:16 Total Creatine Kinase 135 units/L (55-170) 01/09/17 10:16 CK-MB (CK-2) 7.1 ng/mL (0.0-4.0) H 01/09/17 10:16 CK-MB (CK-2) Rel Index 5.2 (0-4) H 01/09/17 10:16 Troponin T < 0.010 ng/mL (0.00-0.029) 01/09/17 10:16 NT-Pro-B Natriuret Pep 602.9 pg/mL (0-900) 01/09/17 10:16 Total Protein 7.9 g/dL (6.3-8.2) 01/22/17 04:00 Albumin 2.7 g/dL (3.9-5) L 01/22/17 04:00 Albumin/Globulin Ratio 0.5 % 01/22/17 04:00 TSH 52.800 mlU/mL (0.270-4.200) H 01/09/17 10:16 Free T4 0.78 ng/dL (0.76-1.46) 01/09/17 10:16 Total Cortisol 54.8 mcg/dL () 01/09/17 16:19 Urine Color Yellow (Yellow) 01/28/17 17:52 Urine Turbidity Clear (Clear) 01/28/17 17:52 Urine pH 6.0 (5.0-7.0) 01/28/17 17:52 Ur Specific Welsh 1.016 (1.003-1.030) 01/28/17 17:52 Urine Protein 100 mg/dl mg/dL (Negative) 01/28/17 17:52 Urine Glucose (UA) >=500 mg/dL (Negative) 01/28/17 17:52 Urine Ketones Neg mg/dL (Negative) 01/28/17 17:52 Urine Blood Sm (Negative) 01/28/17 17:52 Urine Nitrite Neg (Negative) 01/28/17 17:52 Urine Bilirubin Neg (Negative) 01/28/17 17:52 Urine Urobilinogen < 2.0 mg/dL (<2.0) 01/28/17 17:52 Ur Leukocyte Esterase Lg (Negative) 01/28/17 17:52 Urine WBC (Auto) > 182.0 /HPF (0.0-6.0) H 01/28/17 17:52 Urine RBC (Auto) 113.0 /HPF (0.0-6.0) 01/28/17 17:52 Urine Bacteria (Auto) 2+ /HPF (Negative) 01/28/17 17:52 Urine WBC Clumps 3+ /HPF 01/28/17 17:52 Urine Mucus Few /HPF 01/14/17 14:07 Urine Yeast (Budding) 3+ /HPF 01/14/17 14:07 Salicylates < 0.3 mg/dL (2.8-20.0) L 01/09/17 10:16 Urine Opiates Screen Presumptive negative 01/09/17 10:23 Urine Methadone Screen Presumptive negative 01/09/17 10:23 Acetaminophen < 15.0 ug/mL (10.0-30.0) 01/09/17 10:16 Ur Barbiturates Screen Presumptive negative 01/09/17 10:23 Ur Phencyclidine Scrn Presumptive negative 01/09/17 10:23 Ur Amphetamines Screen Presumptive negative 01/09/17 10:23 U Benzodiazepines Scrn Presumptive negative 01/09/17 10:23 Urine Cocaine Screen Presumptive negative 01/09/17 10:23 U Marijuana (THC) Screen Presumptive negative 01/09/17 10:23 Drugs of Abuse Note Disclamer 01/09/17 10:23 Plasma/Serum Alcohol < 0.01 gm% (0-0.07) 01/09/17 10:16
--- NOTE | 2017-03-16 10:37 | Progress Note ---
Assessment and Plan 51 y/o male found down, concern for sepsis and now encephalopathic requiring mechanical ventilation. 1. continue supportive care 2. 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 I am aware that he is an AND but trach will not fix this problem and is not in my professional opinion the right thing to do for this patient. Most likely he will never be weaned from the vent and will remain in a persistent vegatative state. 3. Patient is not on abx therapy and currently does not need this 4. Overall prognosis continues to be poor. 5. Will not check labs 6. Vitals should be qshift Subjective Date of service: 03/16/17 Principal diagnosis: Acute respiratory failure,encephalopathy Interval history: No acute events. Clinically unchanged. Objective Vital Signs - 12hr 03/15/17 03/15/17 03/16/17 23:01 23:58 00:00 Temperature 97.5 F L Pulse Rate 59 L 62 Respiratory 12 Rate Blood Pressure 114/77 114/79 O2 Sat by Pulse 100 100 Oximetry 03/16/17 03/16/17 03/16/17 00:01 01:01 02:01 Temperature Pulse Rate 60 62 59 L Respiratory 13 13 13 Rate Blood Pressure 132/72 132/72 132/72 O2 Sat by Pulse 100 100 100 Oximetry 03/16/17 03/16/17 03/16/17 03:01 04:20 07:00 Temperature Pulse Rate 61 61 63 Respiratory 13 Rate Blood Pressure 132/72 132/72 132/72 O2 Sat by Pulse 100 100 100 Oximetry Constitutional: no acute distress, other (intubated, on vent support) Eyes: non-icteric ENT: oropharynx moist Neck: supple Effort: normal Ascultation: Bilateral: clear, diminished breath sounds Cardiovascular: regular rate and rhythm Gastrointestinal: normoactive bowel sounds, soft, non-tender, non-distended Integumentary: normal Extremities: no cyanosis, no edema, pink and warm Neurologic: other (awake spontaneously, not not following any commands. Fixed stare.) Psychiatric: other (unable to obtain) CBC and BMP: 03/10/17 05:09 03/10/17 05:09 ABG, PT/INR, D-dimer: ABG POC ABG pH 7.442 (7.35-7.45) 01/31/17 18:55 ABG pH 7.420 pH Units (7.350-7.450) 01/17/17 04:35 POC ABG pCO2 32.8 (35-45) L 01/31/17 18:55 ABG pCO2 34.5 mm Hg 01/17/17 04:35 POC ABG pO2 82 (80-105) 01/31/17 18:55 ABG pO2 160.3 mm Hg (80.0-90.0) H 01/17/17 04:35 POC ABG HCO3 22.4 01/31/17 18:55 POC ABG Total CO2 23 01/31/17 18:55 POC ABG O2 Sat 97 01/31/17 18:55 ABG O2 Saturation 99.0 % (95.0-99.0) 01/17/17 04:35 PT/INR, D-dimer PT 14.1 Sec. (12.2-14.9) 01/17/17 04:10 INR 1.04 (0.87-1.13) 01/17/17 04:10 Abnormal lab findings: Abnormal Labs 01/09/17 01/09/17 01/09/17 10:16 10:16 10:16 WBC RBC Hgb 9.7 L Hct 28.4 L MCV 76 L MCH 26 L RDW 17.2 H Plt Count 448 H Lymph % (Auto) [place] % (Auto) Eos % (Auto) Seg Neutrophils % 79.5 H Seg Neuts % (Manual) Lymphocytes % (Manual) Seg Neutrophils # Seg Neutrophils # Man Lymphocytes # (Manual) APTT 39.6 H POC ABG pH ABG pH POC ABG pCO2 POC ABG pO2 ABG pO2 ABG HCO3 ABG Base Excess ABG Hemoglobin VBG pH Oxyhemoglobin Sodium 132 L Potassium Chloride 96.7 L Carbon Dioxide 21 L BUN 34 H Creatinine Glucose POC Glucose Lactic Acid Calcium 8.3 L AST Alkaline Phosphatase 151 H CK-MB (CK-2) 7.1 H CK-MB (CK-2) Rel Index 5.2 H Albumin 3.3 L TSH Urine WBC (Auto) Salicylates 01/09/17 01/09/17 01/09/17 10:16 10:16 10:16 WBC RBC Hgb Hct MCV MCH RDW Plt Count Lymph % (Auto) [place] % (Auto) Eos % (Auto) Seg Neutrophils % Seg Neuts % (Manual) Lymphocytes % (Manual) Seg Neutrophils # Seg Neutrophils # Man Lymphocytes # (Manual) APTT POC ABG pH ABG pH POC ABG pCO2 POC ABG pO2 ABG pO2 ABG HCO3 ABG Base Excess ABG Hemoglobin VBG pH 7.284 L Oxyhemoglobin Sodium Potassium Chloride Carbon Dioxide BUN Creatinine Glucose POC Glucose Lactic Acid Calcium AST Alkaline Phosphatase CK-MB (CK-2) CK-MB (CK-2) Rel Index Albumin TSH 52.800 H Urine WBC (Auto) Salicylates < 0.3 L 01/09/17 01/09/17 01/09/17 10:23 11:14 12:49 WBC RBC Hgb Hct MCV MCH RDW Plt Count Lymph % (Auto) [place] % (Auto) Eos % (Auto) Seg Neutrophils % Seg Neuts % (Manual) Lymphocytes % (Manual) Seg Neutrophils # Seg Neutrophils # Man Lymphocytes # (Manual) APTT POC ABG pH ABG pH POC ABG pCO2 POC ABG pO2 643 H ABG pO2 ABG HCO3 ABG Base Excess ABG Hemoglobin VBG pH Oxyhemoglobin Sodium Potassium Chloride Carbon Dioxide BUN Creatinine Glucose POC Glucose < 40 L Lactic Acid Calcium AST Alkaline Phosphatase CK-MB (CK-2) CK-MB (CK-2) Rel Index Albumin TSH Urine WBC (Auto) 61.0 H Salicylates 01/09/17 01/09/17 01/09/17 13:13 14:21 15:09 WBC RBC Hgb Hct MCV MCH RDW Plt Count Lymph % (Auto) [place] % (Auto) Eos % (Auto) Seg Neutrophils % Seg Neuts % (Manual) Lymphocytes % (Manual) Seg Neutrophils # Seg Neutrophils # Man Lymphocytes # (Manual) APTT POC ABG pH ABG pH POC ABG pCO2 POC ABG pO2 ABG pO2 ABG HCO3 ABG Base Excess ABG Hemoglobin VBG pH Oxyhemoglobin Sodium Potassium Chloride Carbon Dioxide BUN Creatinine Glucose POC Glucose 128 H 65 L 120 H Lactic Acid Calcium AST Alkaline Phosphatase CK-MB (CK-2) CK-MB (CK-2) Rel Index Albumin TSH Urine WBC (Auto) Salicylates 01/09/17 01/09/17 01/10/17 16:28 17:14 04:30 WBC 24.1 H RBC 3.38 L Hgb 8.5 L Hct 26.0 L MCV 77 L MCH 25 L RDW 17.9 H Plt Count 474 H Lymph % (Auto) [place] % (Auto) Eos % (Auto) Seg Neutrophils % Seg Neuts % (Manual) 88.0 H Lymphocytes % (Manual) 4.0 L Seg Neutrophils # Seg Neutrophils # Man 21.2 H Lymphocytes # (Manual) 1.0 L APTT POC ABG pH ABG pH POC ABG pCO2 POC ABG pO2 ABG pO2 ABG HCO3 ABG Base Excess ABG Hemoglobin VBG pH Oxyhemoglobin Sodium Potassium Chloride Carbon Dioxide BUN Creatinine Glucose POC Glucose 44 L 112 H Lactic Acid Calcium AST Alkaline Phosphatase CK-MB (CK-2) CK-MB (CK-2) Rel Index Albumin TSH Urine WBC (Auto) Salicylates 01/10/17 01/10/17 01/10/17 04:30 05:41 05:45 WBC RBC Hgb Hct MCV MCH RDW Plt Count Lymph % (Auto) [place] % (Auto) Eos % (Auto) Seg Neutrophils % Seg Neuts % (Manual) Lymphocytes % (Manual) Seg Neutrophils # Seg Neutrophils # Man Lymphocytes # (Manual) APTT POC ABG pH ABG pH POC ABG pCO2 26.6 L POC ABG pO2 207 H ABG pO2 ABG HCO3 ABG Base Excess ABG Hemoglobin VBG pH Oxyhemoglobin Sodium Potassium Chloride Carbon Dioxide 17 L BUN 27 H Creatinine Glucose POC Glucose 68 L Lactic Acid Calcium 7.5 L AST Alkaline Phosphatase CK-MB (CK-2) CK-MB (CK-2) Rel Index Albumin TSH Urine WBC (Auto) Salicylates 01/10/17 01/10/17 01/10/17 07:47 10:50 13:41 WBC RBC Hgb Hct MCV MCH RDW Plt Count Lymph % (Auto) [place] % (Auto) Eos % (Auto) Seg Neutrophils % Seg Neuts % (Manual) Lymphocytes % (Manual) Seg Neutrophils # Seg Neutrophils # Man Lymphocytes # (Manual) APTT POC ABG pH ABG pH POC ABG pCO2 POC ABG pO2 ABG pO2 ABG HCO3 ABG Base Excess ABG Hemoglobin VBG pH Oxyhemoglobin Sodium Potassium Chloride Carbon Dioxide BUN Creatinine Glucose POC Glucose 148 H 165 H 114 H Lactic Acid Calcium AST Alkaline Phosphatase CK-MB (CK-2) CK-MB (CK-2) Rel Index Albumin TSH Urine WBC (Auto) Salicylates 10/02/17 10/02/17 10/02/17 20:20 21:39 23:24 WBC RBC Hgb Hct MCV MCH RDW Plt Count Lymph % (Auto) [place] % (Auto) Eos % (Auto) Seg Neutrophils % Seg Neuts % (Manual) Lymphocytes % (Manual) Seg Neutrophils # Seg Neutrophils # Man Lymphocytes # (Manual) APTT POC ABG pH ABG pH POC ABG pCO2 POC ABG pO2 ABG pO2 ABG HCO3 ABG Base Excess ABG Hemoglobin VBG pH Oxyhemoglobin Sodium Potassium Chloride Carbon Dioxide BUN Creatinine Glucose POC Glucose 150 H 175 H 155 H Lactic Acid Calcium AST Alkaline Phosphatase CK-MB (CK-2) CK-MB (CK-2) Rel Index Albumin TSH Urine WBC (Auto) Salicylates 01/11/17 01/11/17 01/11/17 00:19 04:06 05:20 WBC 15.2 H RBC 3.40 L Hgb 8.9 L Hct 26.3 L MCV 78 L MCH 26 L RDW 18.6 H Plt Count 462 H Lymph % (Auto) 13.2 L [place] % (Auto) Eos % (Auto) Seg Neutrophils % 80.8 H Seg Neuts % (Manual) Lymphocytes % (Manual) Seg Neutrophils # 12.3 H Seg Neutrophils # Man Lymphocytes # (Manual) APTT POC ABG pH 7.463 H ABG pH POC ABG pCO2 26.2 L POC ABG pO2 185 H ABG pO2 ABG HCO3 ABG Base Excess ABG Hemoglobin VBG pH Oxyhemoglobin Sodium Potassium Chloride Carbon Dioxide BUN Creatinine Glucose POC Glucose 163 H Lactic Acid Calcium AST Alkaline Phosphatase CK-MB (CK-2) CK-MB (CK-2) Rel Index Albumin TSH Urine WBC (Auto) Salicylates 01/11/17 01/11/17 01/11/17 05:20 06:21 07:57 WBC RBC Hgb Hct MCV MCH RDW Plt Count Lymph % (Auto) [place] % (Auto) Eos % (Auto) Seg Neutrophils % Seg Neuts % (Manual) Lymphocytes % (Manual) Seg Neutrophils # Seg Neutrophils # Man Lymphocytes # (Manual) APTT POC ABG pH ABG pH POC ABG pCO2 POC ABG pO2 ABG pO2 ABG HCO3 ABG Base Excess ABG Hemoglobin VBG pH Oxyhemoglobin Sodium Potassium 3.4 L Chloride 111.5 H Carbon Dioxide 17 L BUN Creatinine Glucose 147 H POC Glucose 139 H 188 H Lactic Acid Calcium 8.0 L AST Alkaline Phosphatase CK-MB (CK-2) CK-MB (CK-2) Rel Index Albumin TSH Urine WBC (Auto) Salicylates 01/11/17 01/11/17 01/11/17 11:46 16:50 23:15 WBC RBC Hgb Hct MCV MCH RDW Plt Count Lymph % (Auto) [place] % (Auto) Eos % (Auto) Seg Neutrophils % Seg Neuts % (Manual) Lymphocytes % (Manual) Seg Neutrophils # Seg Neutrophils # Man Lymphocytes # (Manual) APTT POC ABG pH ABG pH POC ABG pCO2 POC ABG pO2 ABG pO2 ABG HCO3 ABG Base Excess ABG Hemoglobin VBG pH Oxyhemoglobin Sodium Potassium Chloride Carbon Dioxide BUN Creatinine Glucose POC Glucose 199 H 235 H 155 H Lactic Acid Calcium AST Alkaline Phosphatase CK-MB (CK-2) CK-MB (CK-2) Rel Index Albumin TSH Urine WBC (Auto) Salicylates 01/12/17 01/12/17 01/12/17 05:02 06:56 14:50 WBC RBC Hgb Hct MCV MCH RDW Plt Count Lymph % (Auto) [place] % (Auto) Eos % (Auto) Seg Neutrophils % Seg Neuts % (Manual) Lymphocytes % (Manual) Seg Neutrophils # Seg Neutrophils # Man Lymphocytes # (Manual) APTT POC ABG pH ABG pH POC ABG pCO2 28.0 L POC ABG pO2 178 H ABG pO2 ABG HCO3 ABG Base Excess ABG Hemoglobin VBG pH Oxyhemoglobin Sodium Potassium Chloride Carbon Dioxide BUN Creatinine Glucose POC Glucose 119 H 164 H Lactic Acid Calcium AST Alkaline Phosphatase CK-MB (CK-2) CK-MB (CK-2) Rel Index Albumin TSH Urine WBC (Auto) Salicylates 01/13/17 01/13/17 01/13/17 03:37 03:37 04:26 WBC RBC 3.61 L Hgb 9.3 L Hct 28.0 L MCV 78 L MCH 26 L RDW 18.2 H Plt Count Lymph % (Auto) [place] % (Auto) Eos % (Auto) Seg Neutrophils % Seg Neuts % (Manual) Lymphocytes % (Manual) Seg Neutrophils # Seg Neutrophils # Man Lymphocytes # (Manual) APTT POC ABG pH 7.485 H ABG pH POC ABG pCO2 25.4 L POC ABG pO2 73 L ABG pO2 ABG HCO3 ABG Base Excess ABG Hemoglobin VBG pH Oxyhemoglobin Sodium Potassium Chloride 112.4 H Carbon Dioxide 19 L BUN Creatinine Glucose 118 H POC Glucose Lactic Acid Calcium 8.0 L AST Alkaline Phosphatase CK-MB (CK-2) CK-MB (CK-2) Rel Index Albumin TSH Urine WBC (Auto) Salicylates 01/13/17 01/13/17 01/13/17 06:15 11:50 17:31 WBC RBC Hgb Hct MCV MCH RDW Plt Count Lymph % (Auto) [place] % (Auto) Eos % (Auto) Seg Neutrophils % Seg Neuts % (Manual) Lymphocytes % (Manual) Seg Neutrophils # Seg Neutrophils # Man Lymphocytes # (Manual) APTT POC ABG pH ABG pH POC ABG pCO2 POC ABG pO2 ABG pO2 ABG HCO3 ABG Base Excess ABG Hemoglobin VBG pH Oxyhemoglobin Sodium Potassium Chloride Carbon Dioxide BUN Creatinine Glucose POC Glucose 116 H 171 H 203 H Lactic Acid Calcium AST Alkaline Phosphatase CK-MB (CK-2) CK-MB (CK-2) Rel Index Albumin TSH Urine WBC (Auto) Salicylates 01/14/17 01/14/17 01/14/17 00:02 04:50 04:50 WBC RBC 3.32 L Hgb 8.5 L Hct 26.1 L MCV 79 L MCH 26 L RDW 18.2 H Plt Count Lymph % (Auto) [place] % (Auto) 9.0 H Eos % (Auto) Seg Neutrophils % Seg Neuts % (Manual) Lymphocytes % (Manual) Seg Neutrophils # Seg Neutrophils # Man Lymphocytes # (Manual) APTT POC ABG pH ABG pH POC ABG pCO2 POC ABG pO2 ABG pO2 ABG HCO3 ABG Base Excess ABG Hemoglobin VBG pH Oxyhemoglobin Sodium Potassium Chloride 112.5 H Carbon Dioxide BUN Creatinine Glucose 149 H POC Glucose 157 H Lactic Acid Calcium 8.1 L AST Alkaline Phosphatase CK-MB (CK-2) CK-MB (CK-2) Rel Index Albumin TSH Urine WBC (Auto) Salicylates 01/14/17 01/14/17 01/14/17 05:10 11:27 14:07 WBC RBC Hgb Hct MCV MCH RDW Plt Count Lymph % (Auto) [place] % (Auto) Eos % (Auto) Seg Neutrophils % Seg Neuts % (Manual) Lymphocytes % (Manual) Seg Neutrophils # Seg Neutrophils # Man Lymphocytes # (Manual) APTT POC ABG pH ABG pH POC ABG pCO2 POC ABG pO2 ABG pO2 ABG HCO3 ABG Base Excess ABG Hemoglobin VBG pH Oxyhemoglobin Sodium Potassium Chloride Carbon Dioxide BUN Creatinine Glucose POC Glucose 176 H 147 H Lactic Acid Calcium AST Alkaline Phosphatase CK-MB (CK-2) CK-MB (CK-2) Rel Index Albumin TSH Urine WBC (Auto) 53.0 H Salicylates 01/14/17 01/15/17 01/15/17 16:52 00:04 05:26 WBC RBC Hgb Hct MCV MCH RDW Plt Count Lymph % (Auto) [place] % (Auto) Eos % (Auto) Seg Neutrophils % Seg Neuts % (Manual) Lymphocytes % (Manual) Seg Neutrophils # Seg Neutrophils # Man Lymphocytes # (Manual) APTT POC ABG pH ABG pH POC ABG pCO2 POC ABG pO2 ABG pO2 ABG HCO3 ABG Base Excess ABG Hemoglobin VBG pH Oxyhemoglobin Sodium Potassium Chloride Carbon Dioxide BUN Creatinine Glucose POC Glucose 131 H 193 H 215 H Lactic Acid Calcium AST Alkaline Phosphatase CK-MB (CK-2) CK-MB (CK-2) Rel Index Albumin TSH Urine WBC (Auto) Salicylates 01/15/17 01/15/17 01/15/17 11:49 17:47 21:33 WBC RBC Hgb Hct MCV MCH RDW Plt Count Lymph % (Auto) [place] % (Auto) Eos % (Auto) Seg Neutrophils % Seg Neuts % (Manual) Lymphocytes % (Manual) Seg Neutrophils # Seg Neutrophils # Man Lymphocytes # (Manual) APTT POC ABG pH ABG pH POC ABG pCO2 POC ABG pO2 ABG pO2 ABG HCO3 ABG Base Excess ABG Hemoglobin VBG pH Oxyhemoglobin Sodium Potassium Chloride Carbon Dioxide BUN Creatinine Glucose POC Glucose 121 H 211 H 275 H Lactic Acid Calcium AST Alkaline Phosphatase CK-MB (CK-2) CK-MB (CK-2) Rel Index Albumin TSH Urine WBC (Auto) Salicylates 01/16/17 01/16/17 01/16/17 04:30 05:28 13:45 WBC RBC Hgb Hct MCV MCH RDW Plt Count Lymph % (Auto) [place] % (Auto) Eos % (Auto) Seg Neutrophils % Seg Neuts % (Manual) Lymphocytes % (Manual) Seg Neutrophils # Seg Neutrophils # Man Lymphocytes # (Manual) APTT POC ABG pH ABG pH 7.457 H POC ABG pCO2 POC ABG pO2 ABG pO2 55.1 L ABG HCO3 19.4 L ABG Base Excess -4.0 L ABG Hemoglobin 6.8 L VBG pH Oxyhemoglobin 94.9 L Sodium Potassium Chloride Carbon Dioxide BUN Creatinine Glucose POC Glucose 271 H 236 H Lactic Acid Calcium AST Alkaline Phosphatase CK-MB (CK-2) CK-MB (CK-2) Rel Index Albumin TSH Urine WBC (Auto) Salicylates 01/16/17 01/17/17 01/17/17 21:39 04:10 04:10 WBC 4.4 L RBC 2.98 L Hgb 7.7 L Hct 23.3 L MCV 78 L MCH 26 L RDW 18.1 H Plt Count Lymph % (Auto) [place] % (Auto) Eos % (Auto) Seg Neutrophils % Seg Neuts % (Manual) Lymphocytes % (Manual) Seg Neutrophils # Seg Neutrophils # Man Lymphocytes # (Manual) APTT POC ABG pH ABG pH POC ABG pCO2 POC ABG pO2 ABG pO2 ABG HCO3 ABG Base Excess ABG Hemoglobin VBG pH Oxyhemoglobin Sodium Potassium 3.3 L Chloride 108.7 H Carbon Dioxide 20 L BUN 8 L Creatinine Glucose 202 H POC Glucose 258 H Lactic Acid Calcium 7.6 L AST Alkaline Phosphatase CK-MB (CK-2) CK-MB (CK-2) Rel Index Albumin TSH Urine WBC (Auto) Salicylates 01/17/17 01/17/17 01/17/17 04:35 12:23 16:01 WBC RBC Hgb Hct MCV MCH RDW Plt Count Lymph % (Auto) [place] % (Auto) Eos % (Auto) Seg Neutrophils % Seg Neuts % (Manual) Lymphocytes % (Manual) Seg Neutrophils # Seg Neutrophils # Man Lymphocytes # (Manual) APTT POC ABG pH ABG pH POC ABG pCO2 POC ABG pO2 ABG pO2 160.3 H ABG HCO3 ABG Base Excess -2.3 L ABG Hemoglobin 7.9 L VBG pH Oxyhemoglobin Sodium Potassium Chloride Carbon Dioxide BUN Creatinine Glucose POC Glucose 321 H 239 H Lactic Acid Calcium AST Alkaline Phosphatase CK-MB (CK-2) CK-MB (CK-2) Rel Index Albumin TSH Urine WBC (Auto) Salicylates 01/18/17 01/18/17 01/18/17 05:07 12:09 17:54 WBC RBC Hgb Hct MCV MCH RDW Plt Count Lymph % (Auto) [place] % (Auto) Eos % (Auto) Seg Neutrophils % Seg Neuts % (Manual) Lymphocytes % (Manual) Seg Neutrophils # Seg Neutrophils # Man Lymphocytes # (Manual) APTT POC ABG pH ABG pH POC ABG pCO2 POC ABG pO2 ABG pO2 ABG HCO3 ABG Base Excess ABG Hemoglobin VBG pH Oxyhemoglobin Sodium Potassium Chloride Carbon Dioxide BUN Creatinine Glucose POC Glucose 155 H 203 H 132 H Lactic Acid Calcium AST Alkaline Phosphatase CK-MB (CK-2) CK-MB (CK-2) Rel Index Albumin TSH Urine WBC (Auto) Salicylates 01/18/17 01/19/17 01/19/17 23:43 04:28 12:11 WBC RBC Hgb Hct MCV MCH RDW Plt Count Lymph % (Auto) [place] % (Auto) Eos % (Auto) Seg Neutrophils % Seg Neuts % (Manual) Lymphocytes % (Manual) Seg Neutrophils # Seg Neutrophils # Man Lymphocytes # (Manual) APTT POC ABG pH ABG pH POC ABG pCO2 POC ABG pO2 ABG pO2 ABG HCO3 ABG Base Excess ABG Hemoglobin VBG pH Oxyhemoglobin Sodium Potassium Chloride Carbon Dioxide BUN Creatinine Glucose POC Glucose 125 H 182 H 153 H Lactic Acid Calcium AST Alkaline Phosphatase CK-MB (CK-2) CK-MB (CK-2) Rel Index Albumin TSH Urine WBC (Auto) Salicylates 01/19/17 01/20/17 01/20/17 17:23 00:12 05:44 WBC RBC Hgb Hct MCV MCH RDW Plt Count Lymph % (Auto) [place] % (Auto) Eos % (Auto) Seg Neutrophils % Seg Neuts % (Manual) Lymphocytes % (Manual) Seg Neutrophils # Seg Neutrophils # Man Lymphocytes # (Manual) APTT POC ABG pH ABG pH POC ABG pCO2 POC ABG pO2 ABG pO2 ABG HCO3 ABG Base Excess ABG Hemoglobin VBG pH Oxyhemoglobin Sodium Potassium Chloride Carbon Dioxide BUN Creatinine Glucose POC Glucose 66 L 139 H 176 H Lactic Acid Calcium AST Alkaline Phosphatase CK-MB (CK-2) CK-MB (CK-2) Rel Index Albumin TSH Urine WBC (Auto) Salicylates 01/20/17 01/20/17 01/20/17 11:48 17:42 23:43 WBC RBC Hgb Hct MCV MCH RDW Plt Count Lymph % (Auto) [place] % (Auto) Eos % (Auto) Seg Neutrophils % Seg Neuts % (Manual) Lymphocytes % (Manual) Seg Neutrophils # Seg Neutrophils # Man Lymphocytes # (Manual) APTT POC ABG pH ABG pH POC ABG pCO2 POC ABG pO2 ABG pO2 ABG HCO3 ABG Base Excess ABG Hemoglobin VBG pH Oxyhemoglobin Sodium Potassium Chloride Carbon Dioxide BUN Creatinine Glucose POC Glucose 218 H 132 H 178 H Lactic Acid Calcium AST Alkaline Phosphatase CK-MB (CK-2) CK-MB (CK-2) Rel Index Albumin TSH Urine WBC (Auto) Salicylates 01/21/17 01/21/17 01/21/17 05:34 11:17 23:37 WBC RBC Hgb Hct MCV MCH RDW Plt Count Lymph % (Auto) [place] % (Auto) Eos % (Auto) Seg Neutrophils % Seg Neuts % (Manual) Lymphocytes % (Manual) Seg Neutrophils # Seg Neutrophils # Man Lymphocytes # (Manual) APTT POC ABG pH ABG pH POC ABG pCO2 POC ABG pO2 ABG pO2 ABG HCO3 ABG Base Excess ABG Hemoglobin VBG pH Oxyhemoglobin Sodium Potassium Chloride Carbon Dioxide BUN Creatinine Glucose POC Glucose 106 H 213 H 140 H Lactic Acid Calcium AST Alkaline Phosphatase CK-MB (CK-2) CK-MB (CK-2) Rel Index Albumin TSH Urine WBC (Auto) Salicylates 01/22/17 01/22/17 01/22/17 04:00 04:00 04:58 WBC RBC 3.26 L Hgb 8.3 L Hct 25.5 L MCV 78 L MCH 25 L RDW 17.9 H Plt Count Lymph % (Auto) [place] % (Auto) 7.9 H Eos % (Auto) 6.2 H Seg Neutrophils % Seg Neuts % (Manual) Lymphocytes % (Manual) Seg Neutrophils # Seg Neutrophils # Man Lymphocytes # (Manual) APTT POC ABG pH ABG pH POC ABG pCO2 POC ABG pO2 ABG pO2 ABG HCO3 ABG Base Excess ABG Hemoglobin VBG pH Oxyhemoglobin Sodium Potassium Chloride 95.5 L Carbon Dioxide 31 H D BUN Creatinine Glucose 134 H POC Glucose 146 H Lactic Acid Calcium AST 44 H Alkaline Phosphatase 379 H CK-MB (CK-2) CK-MB (CK-2) Rel Index Albumin 2.7 L TSH Urine WBC (Auto) Salicylates 01/22/17 01/22/17 01/22/17 12:12 18:12 23:39 WBC RBC Hgb Hct MCV MCH RDW Plt Count Lymph % (Auto) [place] % (Auto) Eos % (Auto) Seg Neutrophils % Seg Neuts % (Manual) Lymphocytes % (Manual) Seg Neutrophils # Seg Neutrophils # Man Lymphocytes # (Manual) APTT POC ABG pH ABG pH POC ABG pCO2 POC ABG pO2 ABG pO2 ABG HCO3 ABG Base Excess ABG Hemoglobin VBG pH Oxyhemoglobin Sodium Potassium Chloride Carbon Dioxide BUN Creatinine Glucose POC Glucose 255 H 182 H 134 H Lactic Acid Calcium AST Alkaline Phosphatase CK-MB (CK-2) CK-MB (CK-2) Rel Index Albumin TSH Urine WBC (Auto) Salicylates 01/23/17 01/23/17 01/23/17 04:43 12:12 17:36 WBC RBC Hgb Hct MCV MCH RDW Plt Count Lymph % (Auto) [place] % (Auto) Eos % (Auto) Seg Neutrophils % Seg Neuts % (Manual) Lymphocytes % (Manual) Seg Neutrophils # Seg Neutrophils # Man Lymphocytes # (Manual) APTT POC ABG pH ABG pH POC ABG pCO2 POC ABG pO2 ABG pO2 ABG HCO3 ABG Base Excess ABG Hemoglobin VBG pH Oxyhemoglobin Sodium Potassium Chloride Carbon Dioxide BUN Creatinine Glucose POC Glucose 218 H 128 H 156 H Lactic Acid Calcium AST Alkaline Phosphatase CK-MB (CK-2) CK-MB (CK-2) Rel Index Albumin TSH Urine WBC (Auto) Salicylates 01/24/17 01/24/17 01/24/17 00:08 05:16 11:40 WBC RBC Hgb Hct MCV MCH RDW Plt Count Lymph % (Auto) [place] % (Auto) Eos % (Auto) Seg Neutrophils % Seg Neuts % (Manual) Lymphocytes % (Manual) Seg Neutrophils # Seg Neutrophils # Man Lymphocytes # (Manual) APTT POC ABG pH ABG pH POC ABG pCO2 POC ABG pO2 ABG pO2 ABG HCO3 ABG Base Excess ABG Hemoglobin VBG pH Oxyhemoglobin Sodium Potassium Chloride Carbon Dioxide BUN Creatinine Glucose POC Glucose 129 H 169 H 187 H Lactic Acid Calcium AST Alkaline Phosphatase CK-MB (CK-2) CK-MB (CK-2) Rel Index Albumin TSH Urine WBC (Auto) Salicylates 01/24/17 01/24/17 01/25/17 17:43 23:23 04:56 WBC RBC Hgb Hct MCV MCH RDW Plt Count Lymph % (Auto) [place] % (Auto) Eos % (Auto) Seg Neutrophils % Seg Neuts % (Manual) Lymphocytes % (Manual) Seg Neutrophils # Seg Neutrophils # Man Lymphocytes # (Manual) APTT POC ABG pH ABG pH POC ABG pCO2 POC ABG pO2 ABG pO2 ABG HCO3 ABG Base Excess ABG Hemoglobin VBG pH Oxyhemoglobin Sodium Potassium Chloride Carbon Dioxide BUN Creatinine Glucose POC Glucose 215 H 222 H 210 H Lactic Acid Calcium AST Alkaline Phosphatase CK-MB (CK-2) CK-MB (CK-2) Rel Index Albumin TSH Urine WBC (Auto) Salicylates 01/25/17 01/25/17 01/26/17 11:52 17:37 00:02 WBC RBC Hgb Hct MCV MCH RDW Plt Count Lymph % (Auto) [place] % (Auto) Eos % (Auto) Seg Neutrophils % Seg Neuts % (Manual) Lymphocytes % (Manual) Seg Neutrophils # Seg Neutrophils # Man Lymphocytes # (Manual) APTT POC ABG pH ABG pH POC ABG pCO2 POC ABG pO2 ABG pO2 ABG HCO3 ABG Base Excess ABG Hemoglobin VBG pH Oxyhemoglobin Sodium Potassium Chloride Carbon Dioxide BUN Creatinine Glucose POC Glucose 284 H 218 H 192 H Lactic Acid Calcium AST Alkaline Phosphatase CK-MB (CK-2) CK-MB (CK-2) Rel Index Albumin TSH Urine WBC (Auto) Salicylates 01/26/17 01/26/17 01/26/17 05:33 12:17 17:50 WBC RBC Hgb Hct MCV MCH RDW Plt Count Lymph % (Auto) [place] % (Auto) Eos % (Auto) Seg Neutrophils % Seg Neuts % (Manual) Lymphocytes % (Manual) Seg Neutrophils # Seg Neutrophils # Man Lymphocytes # (Manual) APTT POC ABG pH ABG pH POC ABG pCO2 POC ABG pO2 ABG pO2 ABG HCO3 ABG Base Excess ABG Hemoglobin VBG pH Oxyhemoglobin Sodium Potassium Chloride Carbon Dioxide BUN Creatinine Glucose POC Glucose 199 H 227 H 229 H Lactic Acid Calcium AST Alkaline Phosphatase CK-MB (CK-2) CK-MB (CK-2) Rel Index Albumin TSH Urine WBC (Auto) Salicylates 01/26/17 01/27/17 01/27/17 23:57 05:31 11:42 WBC RBC Hgb Hct MCV MCH RDW Plt Count Lymph % (Auto) [place] % (Auto) Eos % (Auto) Seg Neutrophils % Seg Neuts % (Manual) Lymphocytes % (Manual) Seg Neutrophils # Seg Neutrophils # Man Lymphocytes # (Manual) APTT POC ABG pH ABG pH POC ABG pCO2 POC ABG pO2 ABG pO2 ABG HCO3 ABG Base Excess ABG Hemoglobin VBG pH Oxyhemoglobin Sodium Potassium Chloride Carbon Dioxide BUN Creatinine Glucose POC Glucose 186 H 285 H 260 H Lactic Acid Calcium AST Alkaline Phosphatase CK-MB (CK-2) CK-MB (CK-2) Rel Index Albumin TSH Urine WBC (Auto) Salicylates 01/27/17 01/27/17 01/27/17 17:47 23:58 Unknown WBC 12.1 H RBC 3.28 L Hgb 8.5 L Hct 25.5 L MCV 78 L MCH 26 L RDW 16.8 H Plt Count 601 H Lymph % (Auto) [place] % (Auto) Eos % (Auto) Seg Neutrophils % Seg Neuts % (Manual) Lymphocytes % (Manual) Seg Neutrophils # Seg Neutrophils # Man Lymphocytes # (Manual) APTT POC ABG pH ABG pH POC ABG pCO2 POC ABG pO2 ABG pO2 ABG HCO3 ABG Base Excess ABG Hemoglobin VBG pH Oxyhemoglobin Sodium Potassium Chloride Carbon Dioxide BUN Creatinine Glucose POC Glucose 329 H 225 H Lactic Acid Calcium AST Alkaline Phosphatase CK-MB (CK-2) CK-MB (CK-2) Rel Index Albumin TSH Urine WBC (Auto) Salicylates 01/27/17 01/28/17 01/28/17 Unknown 03:44 03:44 WBC RBC 3.14 L Hgb 8.2 L Hct 24.1 L MCV 77 L MCH 26 L RDW 16.9 H Plt Count 567 H Lymph % (Auto) [place] % (Auto) Eos % (Auto) Seg Neutrophils % Seg Neuts % (Manual) Lymphocytes % (Manual) Seg Neutrophils # Seg Neutrophils # Man Lymphocytes # (Manual) APTT POC ABG pH ABG pH POC ABG pCO2 POC ABG pO2 ABG pO2 ABG HCO3 ABG Base Excess ABG Hemoglobin VBG pH Oxyhemoglobin Sodium 128 L Potassium 5.4 H Chloride 87.5 L Carbon Dioxide BUN 44 H 42 H Creatinine Glucose 250 H 128 H POC Glucose Lactic Acid Calcium AST Alkaline Phosphatase CK-MB (CK-2) CK-MB (CK-2) Rel Index Albumin TSH Urine WBC (Auto) Salicylates 01/28/17 01/28/17 01/28/17 11:43 16:47 17:52 WBC RBC Hgb Hct MCV MCH RDW Plt Count Lymph % (Auto) [place] % (Auto) Eos % (Auto) Seg Neutrophils % Seg Neuts % (Manual) Lymphocytes % (Manual) Seg Neutrophils # Seg Neutrophils # Man Lymphocytes # (Manual) APTT POC ABG pH ABG pH POC ABG pCO2 POC ABG pO2 ABG pO2 ABG HCO3 ABG Base Excess ABG Hemoglobin VBG pH Oxyhemoglobin Sodium Potassium Chloride Carbon Dioxide BUN Creatinine Glucose POC Glucose 351 H 249 H Lactic Acid Calcium AST Alkaline Phosphatase CK-MB (CK-2) CK-MB (CK-2) Rel Index Albumin TSH Urine WBC (Auto) > 182.0 H Salicylates 01/29/17 01/29/17 01/29/17 05:25 05:25 09:32 WBC 13.6 H RBC 3.25 L Hgb 8.3 L Hct 25.1 L MCV 77 L MCH 26 L RDW 16.8 H Plt Count 514 H Lymph % (Auto) [place] % (Auto) Eos % (Auto) Seg Neutrophils % Seg Neuts % (Manual) Lymphocytes % (Manual) Seg Neutrophils # Seg Neutrophils # Man Lymphocytes # (Manual) APTT POC ABG pH ABG pH POC ABG pCO2 POC ABG pO2 ABG pO2 ABG HCO3 ABG Base Excess ABG Hemoglobin VBG pH Oxyhemoglobin Sodium Potassium Chloride 97.8 L Carbon Dioxide BUN 34 H Creatinine Glucose 222 H POC Glucose Lactic Acid 2.50 H* Calcium AST Alkaline Phosphatase CK-MB (CK-2) CK-MB (CK-2) Rel Index Albumin TSH Urine WBC (Auto) Salicylates 01/29/17 01/29/17 01/29/17 11:56 18:11 23:55 WBC RBC Hgb Hct MCV MCH RDW Plt Count Lymph % (Auto) [place] % (Auto) Eos % (Auto) Seg Neutrophils % Seg Neuts % (Manual) Lymphocytes % (Manual) Seg Neutrophils # Seg Neutrophils # Man Lymphocytes # (Manual) APTT POC ABG pH ABG pH POC ABG pCO2 POC ABG pO2 ABG pO2 ABG HCO3 ABG Base Excess ABG Hemoglobin VBG pH Oxyhemoglobin Sodium Potassium Chloride Carbon Dioxide BUN Creatinine Glucose POC Glucose 261 H 215 H 176 H Lactic Acid Calcium AST Alkaline Phosphatase CK-MB (CK-2) CK-MB (CK-2) Rel Index Albumin TSH Urine WBC (Auto) Salicylates 01/30/17 01/30/17 01/30/17 05:31 05:31 05:34 WBC 15.2 H RBC 3.09 L Hgb 7.9 L Hct 23.9 L MCV 77 L MCH 26 L RDW 16.9 H Plt Count 569 H Lymph % (Auto) [place] % (Auto) Eos % (Auto) Seg Neutrophils % Seg Neuts % (Manual) Lymphocytes % (Manual) Seg Neutrophils # Seg Neutrophils # Man Lymphocytes # (Manual) APTT POC ABG pH ABG pH POC ABG pCO2 POC ABG pO2 ABG pO2 ABG HCO3 ABG Base Excess ABG Hemoglobin VBG pH Oxyhemoglobin Sodium Potassium Chloride Carbon Dioxide BUN 24 H Creatinine Glucose 235 H POC Glucose 243 H Lactic Acid Calcium AST Alkaline Phosphatase CK-MB (CK-2) CK-MB (CK-2) Rel Index Albumin TSH Urine WBC (Auto) Salicylates 01/30/17 01/30/17 01/30/17 11:38 17:58 23:29 WBC RBC Hgb Hct MCV MCH RDW Plt Count Lymph % (Auto) [place] % (Auto) Eos % (Auto) Seg Neutrophils % Seg Neuts % (Manual) Lymphocytes % (Manual) Seg Neutrophils # Seg Neutrophils # Man Lymphocytes # (Manual) APTT POC ABG pH ABG pH POC ABG pCO2 POC ABG pO2 ABG pO2 ABG HCO3 ABG Base Excess ABG Hemoglobin VBG pH Oxyhemoglobin Sodium Potassium Chloride Carbon Dioxide BUN Creatinine Glucose POC Glucose 298 H 208 H 245 H Lactic Acid Calcium AST Alkaline Phosphatase CK-MB (CK-2) CK-MB (CK-2) Rel Index Albumin TSH Urine WBC (Auto) Salicylates 01/31/17 01/31/17 01/31/17 04:39 04:39 05:57 WBC 11.4 H RBC 3.22 L Hgb 8.2 L Hct 24.9 L MCV 78 L MCH 25 L RDW 17.2 H Plt Count 576 H Lymph % (Auto) [place] % (Auto) Eos % (Auto) Seg Neutrophils % Seg Neuts % (Manual) Lymphocytes % (Manual) Seg Neutrophils # Seg Neutrophils # Man Lymphocytes # (Manual) APTT POC ABG pH ABG pH POC ABG pCO2 POC ABG pO2 ABG pO2 ABG HCO3 ABG Base Excess ABG Hemoglobin VBG pH Oxyhemoglobin Sodium Potassium Chloride Carbon Dioxide BUN Creatinine 0.7 L Glucose 223 H POC Glucose 264 H Lactic Acid Calcium AST Alkaline Phosphatase CK-MB (CK-2) CK-MB (CK-2) Rel Index Albumin TSH Urine WBC (Auto) Salicylates 01/31/17 01/31/17 01/31/17 12:23 17:41 18:55 WBC RBC Hgb Hct MCV MCH RDW Plt Count Lymph % (Auto) [place] % (Auto) Eos % (Auto) Seg Neutrophils % Seg Neuts % (Manual) Lymphocytes % (Manual) Seg Neutrophils # Seg Neutrophils # Man Lymphocytes # (Manual) APTT POC ABG pH ABG pH POC ABG pCO2 32.8 L POC ABG pO2 ABG pO2 ABG HCO3 ABG Base Excess ABG Hemoglobin VBG pH Oxyhemoglobin Sodium Potassium Chloride Carbon Dioxide BUN Creatinine Glucose POC Glucose 252 H 208 H Lactic Acid Calcium AST Alkaline Phosphatase CK-MB (CK-2) CK-MB (CK-2) Rel Index Albumin TSH Urine WBC (Auto) Salicylates 01/31/17 02/01/17 02/01/17 22:59 03:38 03:38 WBC RBC 2.81 L Hgb 7.4 L Hct 22.1 L MCV 79 L MCH 27 L RDW 17.0 H Plt Count 540 H Lymph % (Auto) [place] % (Auto) Eos % (Auto) Seg Neutrophils % Seg Neuts % (Manual) Lymphocytes % (Manual) Seg Neutrophils # Seg Neutrophils # Man Lymphocytes # (Manual) APTT POC ABG pH ABG pH POC ABG pCO2 POC ABG pO2 ABG pO2 ABG HCO3 ABG Base Excess ABG Hemoglobin VBG pH Oxyhemoglobin Sodium Potassium Chloride Carbon Dioxide 21 L BUN Creatinine 0.7 L Glucose POC Glucose 40 L Lactic Acid Calcium AST Alkaline Phosphatase CK-MB (CK-2) CK-MB (CK-2) Rel Index Albumin TSH Urine WBC (Auto) Salicylates 02/01/17 02/01/17 02/01/17 05:17 12:19 16:44 WBC RBC Hgb Hct MCV MCH RDW Plt Count Lymph % (Auto) [place] % (Auto) Eos % (Auto) Seg Neutrophils % Seg Neuts % (Manual) Lymphocytes % (Manual) Seg Neutrophils # Seg Neutrophils # Man Lymphocytes # (Manual) APTT POC ABG pH ABG pH POC ABG pCO2 POC ABG pO2 ABG pO2 ABG HCO3 ABG Base Excess ABG Hemoglobin VBG pH Oxyhemoglobin Sodium Potassium Chloride Carbon Dioxide BUN Creatinine Glucose POC Glucose 140 H 213 H 172 H Lactic Acid Calcium AST Alkaline Phosphatase CK-MB (CK-2) CK-MB (CK-2) Rel Index Albumin TSH Urine WBC (Auto) Salicylates 02/01/17 02/02/17 02/02/17 23:59 05:14 11:24 WBC RBC Hgb Hct MCV MCH RDW Plt Count Lymph % (Auto) [place] % (Auto) Eos % (Auto) Seg Neutrophils % Seg Neuts % (Manual) Lymphocytes % (Manual) Seg Neutrophils # Seg Neutrophils # Man Lymphocytes # (Manual) APTT POC ABG pH ABG pH POC ABG pCO2 POC ABG pO2 ABG pO2 ABG HCO3 ABG Base Excess ABG Hemoglobin VBG pH Oxyhemoglobin Sodium Potassium Chloride Carbon Dioxide BUN Creatinine Glucose POC Glucose 181 H 194 H 209 H Lactic Acid Calcium AST Alkaline Phosphatase CK-MB (CK-2) CK-MB (CK-2) Rel Index Albumin TSH Urine WBC (Auto) Salicylates 02/02/17 02/02/17 02/02/17 11:46 11:46 17:47 WBC RBC 2.94 L Hgb 7.5 L Hct 23.0 L MCV 78 L MCH 25 L RDW 16.9 H Plt Count 520 H Lymph % (Auto) [place] % (Auto) Eos % (Auto) Seg Neutrophils % Seg Neuts % (Manual) Lymphocytes % (Manual) Seg Neutrophils # Seg Neutrophils # Man Lymphocytes # (Manual) APTT POC ABG pH ABG pH POC ABG pCO2 POC ABG pO2 ABG pO2 ABG HCO3 ABG Base Excess ABG Hemoglobin VBG pH Oxyhemoglobin Sodium Potassium Chloride Carbon Dioxide BUN Creatinine 0.6 L Glucose 189 H POC Glucose 147 H Lactic Acid Calcium 8.1 L AST Alkaline Phosphatase CK-MB (CK-2) CK-MB (CK-2) Rel Index Albumin TSH Urine WBC (Auto) Salicylates 02/02/17 02/03/17 02/03/17 23:32 05:53 11:19 WBC RBC Hgb Hct MCV MCH RDW Plt Count Lymph % (Auto) [place] % (Auto) Eos % (Auto) Seg Neutrophils % Seg Neuts % (Manual) Lymphocytes % (Manual) Seg Neutrophils # Seg Neutrophils # Man Lymphocytes # (Manual) APTT POC ABG pH ABG pH POC ABG pCO2 POC ABG pO2 ABG pO2 ABG HCO3 ABG Base Excess ABG Hemoglobin VBG pH Oxyhemoglobin Sodium Potassium Chloride Carbon Dioxide BUN Creatinine Glucose POC Glucose 176 H 224 H 228 H Lactic Acid Calcium AST Alkaline Phosphatase CK-MB (CK-2) CK-MB (CK-2) Rel Index Albumin TSH Urine WBC (Auto) Salicylates 02/03/17 02/03/17 02/04/17 16:59 23:38 05:45 WBC RBC Hgb Hct MCV MCH RDW Plt Count Lymph % (Auto) [place] % (Auto) Eos % (Auto) Seg Neutrophils % Seg Neuts % (Manual) Lymphocytes % (Manual) Seg Neutrophils # Seg Neutrophils # Man Lymphocytes # (Manual) APTT POC ABG pH ABG pH POC ABG pCO2 POC ABG pO2 ABG pO2 ABG HCO3 ABG Base Excess ABG Hemoglobin VBG pH Oxyhemoglobin Sodium Potassium Chloride Carbon Dioxide BUN Creatinine Glucose POC Glucose 189 H 191 H 251 H Lactic Acid Calcium AST Alkaline Phosphatase CK-MB (CK-2) CK-MB (CK-2) Rel Index Albumin TSH Urine WBC (Auto) Salicylates 02/04/17 02/04/17 02/05/17 11:20 17:20 00:17 WBC RBC Hgb Hct MCV MCH RDW Plt Count Lymph % (Auto) [place] % (Auto) Eos % (Auto) Seg Neutrophils % Seg Neuts % (Manual) Lymphocytes % (Manual) Seg Neutrophils # Seg Neutrophils # Man Lymphocytes # (Manual) APTT POC ABG pH ABG pH POC ABG pCO2 POC ABG pO2 ABG pO2 ABG HCO3 ABG Base Excess ABG Hemoglobin VBG pH Oxyhemoglobin Sodium Potassium Chloride Carbon Dioxide BUN Creatinine Glucose POC Glucose 243 H 163 H 200 H Lactic Acid Calcium AST Alkaline Phosphatase CK-MB (CK-2) CK-MB (CK-2) Rel Index Albumin TSH Urine WBC (Auto) Salicylates 02/05/17 02/05/17 02/05/17 05:38 12:38 16:29 WBC RBC Hgb Hct MCV MCH RDW Plt Count Lymph % (Auto) [place] % (Auto) Eos % (Auto) Seg Neutrophils % Seg Neuts % (Manual) Lymphocytes % (Manual) Seg Neutrophils # Seg Neutrophils # Man Lymphocytes # (Manual) APTT POC ABG pH ABG pH POC ABG pCO2 POC ABG pO2 ABG pO2 ABG HCO3 ABG Base Excess ABG Hemoglobin VBG pH Oxyhemoglobin Sodium Potassium Chloride Carbon Dioxide BUN Creatinine Glucose POC Glucose 248 H 241 H 257 H Lactic Acid Calcium AST Alkaline Phosphatase CK-MB (CK-2) CK-MB (CK-2) Rel Index Albumin TSH Urine WBC (Auto) Salicylates 02/05/17 02/06/17 02/06/17 23:56 05:30 11:50 WBC RBC Hgb Hct MCV MCH RDW Plt Count Lymph % (Auto) [place] % (Auto) Eos % (Auto) Seg Neutrophils % Seg Neuts % (Manual) Lymphocytes % (Manual) Seg Neutrophils # Seg Neutrophils # Man Lymphocytes # (Manual) APTT POC ABG pH ABG pH POC ABG pCO2 POC ABG pO2 ABG pO2 ABG HCO3 ABG Base Excess ABG Hemoglobin VBG pH Oxyhemoglobin Sodium Potassium Chloride Carbon Dioxide BUN Creatinine Glucose POC Glucose 258 H 120 H 254 H Lactic Acid Calcium AST Alkaline Phosphatase CK-MB (CK-2) CK-MB (CK-2) Rel Index Albumin TSH Urine WBC (Auto) Salicylates 02/06/17 02/06/17 02/07/17 17:11 23:50 05:22 WBC RBC Hgb Hct MCV MCH RDW Plt Count Lymph % (Auto) [place] % (Auto) Eos % (Auto) Seg Neutrophils % Seg Neuts % (Manual) Lymphocytes % (Manual) Seg Neutrophils # Seg Neutrophils # Man Lymphocytes # (Manual) APTT POC ABG pH ABG pH POC ABG pCO2 POC ABG pO2 ABG pO2 ABG HCO3 ABG Base Excess ABG Hemoglobin VBG pH Oxyhemoglobin Sodium Potassium Chloride Carbon Dioxide BUN Creatinine Glucose POC Glucose 149 H 240 H 258 H Lactic Acid Calcium AST Alkaline Phosphatase CK-MB (CK-2) CK-MB (CK-2) Rel Index Albumin TSH Urine WBC (Auto) Salicylates 02/07/17 02/07/17 02/07/17 11:15 18:33 23:59 WBC RBC Hgb Hct MCV MCH RDW Plt Count Lymph % (Auto) [place] % (Auto) Eos % (Auto) Seg Neutrophils % Seg Neuts % (Manual) Lymphocytes % (Manual) Seg Neutrophils # Seg Neutrophils # Man Lymphocytes # (Manual) APTT POC ABG pH ABG pH POC ABG pCO2 POC ABG pO2 ABG pO2 ABG HCO3 ABG Base Excess ABG Hemoglobin VBG pH Oxyhemoglobin Sodium Potassium Chloride Carbon Dioxide BUN Creatinine Glucose POC Glucose 239 H 176 H 186 H Lactic Acid Calcium AST Alkaline Phosphatase CK-MB (CK-2) CK-MB (CK-2) Rel Index Albumin TSH Urine WBC (Auto) Salicylates 02/08/17 02/08/17 02/08/17 06:15 11:55 16:55 WBC RBC Hgb Hct MCV MCH RDW Plt Count Lymph % (Auto) [place] % (Auto) Eos % (Auto) Seg Neutrophils % Seg Neuts % (Manual) Lymphocytes % (Manual) Seg Neutrophils # Seg Neutrophils # Man Lymphocytes # (Manual) APTT POC ABG pH ABG pH POC ABG pCO2 POC ABG pO2 ABG pO2 ABG HCO3 ABG Base Excess ABG Hemoglobin VBG pH Oxyhemoglobin Sodium Potassium Chloride Carbon Dioxide BUN Creatinine Glucose POC Glucose 195 H 129 H 246 H Lactic Acid Calcium AST Alkaline Phosphatase CK-MB (CK-2) CK-MB (CK-2) Rel Index Albumin TSH Urine WBC (Auto) Salicylates 02/08/17 02/09/17 02/09/17 23:51 05:51 07:24 WBC 14.7 H RBC 3.39 L Hgb 8.9 L Hct 26.4 L MCV 78 L MCH 26 L RDW 18.4 H Plt Count 670 H Lymph % (Auto) 11.8 L [place] % (Auto) Eos % (Auto) Seg Neutrophils % 81.2 H Seg Neuts % (Manual) Lymphocytes % (Manual) Seg Neutrophils # 11.9 H Seg Neutrophils # Man Lymphocytes # (Manual) APTT POC ABG pH ABG pH POC ABG pCO2 POC ABG pO2 ABG pO2 ABG HCO3 ABG Base Excess ABG Hemoglobin VBG pH Oxyhemoglobin Sodium Potassium Chloride Carbon Dioxide BUN Creatinine Glucose POC Glucose 262 H 295 H Lactic Acid Calcium AST Alkaline Phosphatase CK-MB (CK-2) CK-MB (CK-2) Rel Index Albumin TSH Urine WBC (Auto) Salicylates 02/09/17 02/09/17 02/09/17 07:24 12:08 18:39 WBC RBC Hgb Hct MCV MCH RDW Plt Count Lymph % (Auto) [place] % (Auto) Eos % (Auto) Seg Neutrophils % Seg Neuts % (Manual) Lymphocytes % (Manual) Seg Neutrophils # Seg Neutrophils # Man Lymphocytes # (Manual) APTT POC ABG pH ABG pH POC ABG pCO2 POC ABG pO2 ABG pO2 ABG HCO3 ABG Base Excess ABG Hemoglobin VBG pH Oxyhemoglobin Sodium Potassium Chloride 95.5 L Carbon Dioxide BUN 52 H Creatinine Glucose 277 H POC Glucose 236 H 151 H Lactic Acid Calcium AST Alkaline Phosphatase CK-MB (CK-2) CK-MB (CK-2) Rel Index Albumin TSH Urine WBC (Auto) Salicylates 02/10/17 02/10/17 02/10/17 00:01 05:44 11:21 WBC RBC Hgb Hct MCV MCH RDW Plt Count Lymph % (Auto) [place] % (Auto) Eos % (Auto) Seg Neutrophils % Seg Neuts % (Manual) Lymphocytes % (Manual) Seg Neutrophils # Seg Neutrophils # Man Lymphocytes # (Manual) APTT POC ABG pH ABG pH POC ABG pCO2 POC ABG pO2 ABG pO2 ABG HCO3 ABG Base Excess ABG Hemoglobin VBG pH Oxyhemoglobin Sodium Potassium Chloride Carbon Dioxide BUN Creatinine Glucose POC Glucose 210 H 201 H 233 H Lactic Acid Calcium AST Alkaline Phosphatase CK-MB (CK-2) CK-MB (CK-2) Rel Index Albumin TSH Urine WBC (Auto) Salicylates 02/10/17 02/10/17 02/11/17 17:29 23:56 05:24 WBC RBC Hgb Hct MCV MCH RDW Plt Count Lymph % (Auto) [place] % (Auto) Eos % (Auto) Seg Neutrophils % Seg Neuts % (Manual) Lymphocytes % (Manual) Seg Neutrophils # Seg Neutrophils # Man Lymphocytes # (Manual) APTT POC ABG pH ABG pH POC ABG pCO2 POC ABG pO2 ABG pO2 ABG HCO3 ABG Base Excess ABG Hemoglobin VBG pH Oxyhemoglobin Sodium Potassium Chloride Carbon Dioxide BUN Creatinine Glucose POC Glucose 167 H 191 H 135 H Lactic Acid Calcium AST Alkaline Phosphatase CK-MB (CK-2) CK-MB (CK-2) Rel Index Albumin TSH Urine WBC (Auto) Salicylates 02/11/17 02/11/17 02/11/17 12:25 17:03 23:59 WBC RBC Hgb Hct MCV MCH RDW Plt Count Lymph % (Auto) [place] % (Auto) Eos % (Auto) Seg Neutrophils % Seg Neuts % (Manual) Lymphocytes % (Manual) Seg Neutrophils # Seg Neutrophils # Man Lymphocytes # (Manual) APTT POC ABG pH ABG pH POC ABG pCO2 POC ABG pO2 ABG pO2 ABG HCO3 ABG Base Excess ABG Hemoglobin VBG pH Oxyhemoglobin Sodium Potassium Chloride Carbon Dioxide BUN Creatinine Glucose POC Glucose 275 H 172 H 215 H Lactic Acid Calcium AST Alkaline Phosphatase CK-MB (CK-2) CK-MB (CK-2) Rel Index Albumin TSH Urine WBC (Auto) Salicylates 02/12/17 02/12/17 02/12/17 05:39 11:33 17:55 WBC RBC Hgb Hct MCV MCH RDW Plt Count Lymph % (Auto) [place] % (Auto) Eos % (Auto) Seg Neutrophils % Seg Neuts % (Manual) Lymphocytes % (Manual) Seg Neutrophils # Seg Neutrophils # Man Lymphocytes # (Manual) APTT POC ABG pH ABG pH POC ABG pCO2 POC ABG pO2 ABG pO2 ABG HCO3 ABG Base Excess ABG Hemoglobin VBG pH Oxyhemoglobin Sodium Potassium Chloride Carbon Dioxide BUN Creatinine Glucose POC Glucose 261 H 217 H 172 H Lactic Acid Calcium AST Alkaline Phosphatase CK-MB (CK-2) CK-MB (CK-2) Rel Index Albumin TSH Urine WBC (Auto) Salicylates 02/13/17 02/13/17 02/13/17 00:25 06:46 11:26 WBC RBC Hgb Hct MCV MCH RDW Plt Count Lymph % (Auto) [place] % (Auto) Eos % (Auto) Seg Neutrophils % Seg Neuts % (Manual) Lymphocytes % (Manual) Seg Neutrophils # Seg Neutrophils # Man Lymphocytes # (Manual) APTT POC ABG pH ABG pH POC ABG pCO2 POC ABG pO2 ABG pO2 ABG HCO3 ABG Base Excess ABG Hemoglobin VBG pH Oxyhemoglobin Sodium Potassium Chloride Carbon Dioxide BUN Creatinine Glucose POC Glucose 207 H 219 H 231 H Lactic Acid Calcium AST Alkaline Phosphatase CK-MB (CK-2) CK-MB (CK-2) Rel Index Albumin TSH Urine WBC (Auto) Salicylates 02/13/17 02/13/17 02/14/17 17:12 23:44 05:44 WBC RBC Hgb Hct MCV MCH RDW Plt Count Lymph % (Auto) [place] % (Auto) Eos % (Auto) Seg Neutrophils % Seg Neuts % (Manual) Lymphocytes % (Manual) Seg Neutrophils # Seg Neutrophils # Man Lymphocytes # (Manual) APTT POC ABG pH ABG pH POC ABG pCO2 POC ABG pO2 ABG pO2 ABG HCO3 ABG Base Excess ABG Hemoglobin VBG pH Oxyhemoglobin Sodium Potassium Chloride Carbon Dioxide BUN Creatinine Glucose POC Glucose 190 H 256 H 184 H Lactic Acid Calcium AST Alkaline Phosphatase CK-MB (CK-2) CK-MB (CK-2) Rel Index Albumin TSH Urine WBC (Auto) Salicylates 02/14/17 02/14/17 02/14/17 12:21 17:57 23:18 WBC RBC Hgb Hct MCV MCH RDW Plt Count Lymph % (Auto) [place] % (Auto) Eos % (Auto) Seg Neutrophils % Seg Neuts % (Manual) Lymphocytes % (Manual) Seg Neutrophils # Seg Neutrophils # Man Lymphocytes # (Manual) APTT POC ABG pH ABG pH POC ABG pCO2 POC ABG pO2 ABG pO2 ABG HCO3 ABG Base Excess ABG Hemoglobin VBG pH Oxyhemoglobin Sodium Potassium Chloride Carbon Dioxide BUN Creatinine Glucose POC Glucose 233 H 155 H 165 H Lactic Acid Calcium AST Alkaline Phosphatase CK-MB (CK-2) CK-MB (CK-2) Rel Index Albumin TSH Urine WBC (Auto) Salicylates 02/15/17 02/15/17 02/15/17 05:33 11:45 17:20 WBC RBC Hgb Hct MCV MCH RDW Plt Count Lymph % (Auto) [place] % (Auto) Eos % (Auto) Seg Neutrophils % Seg Neuts % (Manual) Lymphocytes % (Manual) Seg Neutrophils # Seg Neutrophils # Man Lymphocytes # (Manual) APTT POC ABG pH ABG pH POC ABG pCO2 POC ABG pO2 ABG pO2 ABG HCO3 ABG Base Excess ABG Hemoglobin VBG pH Oxyhemoglobin Sodium Potassium Chloride Carbon Dioxide BUN Creatinine Glucose POC Glucose 239 H 130 H 189 H Lactic Acid Calcium AST Alkaline Phosphatase CK-MB (CK-2) CK-MB (CK-2) Rel Index Albumin TSH Urine WBC (Auto) Salicylates 02/16/17 02/16/17 02/16/17 00:14 05:09 12:31 WBC RBC Hgb Hct MCV MCH RDW Plt Count Lymph % (Auto) [place] % (Auto) Eos % (Auto) Seg Neutrophils % Seg Neuts % (Manual) Lymphocytes % (Manual) Seg Neutrophils # Seg Neutrophils # Man Lymphocytes # (Manual) APTT POC ABG pH ABG pH POC ABG pCO2 POC ABG pO2 ABG pO2 ABG HCO3 ABG Base Excess ABG Hemoglobin VBG pH Oxyhemoglobin Sodium Potassium Chloride Carbon Dioxide BUN Creatinine Glucose POC Glucose 197 H 226 H 178 H Lactic Acid Calcium AST Alkaline Phosphatase CK-MB (CK-2) CK-MB (CK-2) Rel Index Albumin TSH Urine WBC (Auto) Salicylates 02/16/17 02/16/17 02/17/17 16:35 23:49 05:37 WBC RBC Hgb Hct MCV MCH RDW Plt Count Lymph % (Auto) [place] % (Auto) Eos % (Auto) Seg Neutrophils % Seg Neuts % (Manual) Lymphocytes % (Manual) Seg Neutrophils # Seg Neutrophils # Man Lymphocytes # (Manual) APTT POC ABG pH ABG pH POC ABG pCO2 POC ABG pO2 ABG pO2 ABG HCO3 ABG Base Excess ABG Hemoglobin VBG pH Oxyhemoglobin Sodium Potassium Chloride Carbon Dioxide BUN Creatinine Glucose POC Glucose 174 H 62 L 153 H Lactic Acid Calcium AST Alkaline Phosphatase CK-MB (CK-2) CK-MB (CK-2) Rel Index Albumin TSH Urine WBC (Auto) Salicylates 02/17/17 02/17/17 02/17/17 11:39 17:02 22:24 WBC RBC Hgb Hct MCV MCH RDW Plt Count Lymph % (Auto) [place] % (Auto) Eos % (Auto) Seg Neutrophils % Seg Neuts % (Manual) Lymphocytes % (Manual) Seg Neutrophils # Seg Neutrophils # Man Lymphocytes # (Manual) APTT POC ABG pH ABG pH POC ABG pCO2 POC ABG pO2 ABG pO2 ABG HCO3 ABG Base Excess ABG Hemoglobin VBG pH Oxyhemoglobin Sodium Potassium Chloride Carbon Dioxide BUN Creatinine Glucose POC Glucose 231 H 112 H 116 H Lactic Acid Calcium AST Alkaline Phosphatase CK-MB (CK-2) CK-MB (CK-2) Rel Index Albumin TSH Urine WBC (Auto) Salicylates 02/18/17 02/19/17 02/19/17 15:34 05:09 07:57 WBC RBC Hgb Hct MCV MCH RDW Plt Count Lymph % (Auto) [place] % (Auto) Eos % (Auto) Seg Neutrophils % Seg Neuts % (Manual) Lymphocytes % (Manual) Seg Neutrophils # Seg Neutrophils # Man Lymphocytes # (Manual) APTT POC ABG pH ABG pH POC ABG pCO2 POC ABG pO2 ABG pO2 ABG HCO3 ABG Base Excess ABG Hemoglobin VBG pH Oxyhemoglobin Sodium Potassium Chloride Carbon Dioxide BUN Creatinine Glucose POC Glucose 215 H 218 H 283 H Lactic Acid Calcium AST Alkaline Phosphatase CK-MB (CK-2) CK-MB (CK-2) Rel Index Albumin TSH Urine WBC (Auto) Salicylates 02/19/17 02/19/17 02/20/17 14:49 22:10 05:10 WBC RBC Hgb Hct MCV MCH RDW Plt Count Lymph % (Auto) [place] % (Auto) Eos % (Auto) Seg Neutrophils % Seg Neuts % (Manual) Lymphocytes % (Manual) Seg Neutrophils # Seg Neutrophils # Man Lymphocytes # (Manual) APTT POC ABG pH ABG pH POC ABG pCO2 POC ABG pO2 ABG pO2 ABG HCO3 ABG Base Excess ABG Hemoglobin VBG pH Oxyhemoglobin Sodium Potassium Chloride Carbon Dioxide BUN Creatinine Glucose POC Glucose 290 H 169 H 209 H Lactic Acid Calcium AST Alkaline Phosphatase CK-MB (CK-2) CK-MB (CK-2) Rel Index Albumin TSH Urine WBC (Auto) Salicylates 02/20/17 02/20/17 02/21/17 15:05 21:52 02:00 WBC RBC Hgb Hct MCV MCH RDW Plt Count Lymph % (Auto) [place] % (Auto) Eos % (Auto) Seg Neutrophils % Seg Neuts % (Manual) Lymphocytes % (Manual) Seg Neutrophils # Seg Neutrophils # Man Lymphocytes # (Manual) APTT POC ABG pH ABG pH POC ABG pCO2 POC ABG pO2 ABG pO2 ABG HCO3 ABG Base Excess ABG Hemoglobin VBG pH Oxyhemoglobin Sodium Potassium Chloride Carbon Dioxide BUN Creatinine Glucose POC Glucose 172 H 209 H 216 H Lactic Acid Calcium AST Alkaline Phosphatase CK-MB (CK-2) CK-MB (CK-2) Rel Index Albumin TSH Urine WBC (Auto) Salicylates 02/21/17 02/21/17 02/21/17 04:54 14:43 17:47 WBC RBC Hgb Hct MCV MCH RDW Plt Count Lymph % (Auto) [place] % (Auto) Eos % (Auto) Seg Neutrophils % Seg Neuts % (Manual) Lymphocytes % (Manual) Seg Neutrophils # Seg Neutrophils # Man Lymphocytes # (Manual) APTT POC ABG pH ABG pH POC ABG pCO2 POC ABG pO2 ABG pO2 ABG HCO3 ABG Base Excess ABG Hemoglobin VBG pH Oxyhemoglobin Sodium Potassium Chloride Carbon Dioxide BUN Creatinine Glucose POC Glucose 227 H 290 H 220 H Lactic Acid Calcium AST Alkaline Phosphatase CK-MB (CK-2) CK-MB (CK-2) Rel Index Albumin TSH Urine WBC (Auto) Salicylates 02/21/17 02/22/17 02/22/17 22:02 04:52 15:25 WBC RBC Hgb Hct MCV MCH RDW Plt Count Lymph % (Auto) [place] % (Auto) Eos % (Auto) Seg Neutrophils % Seg Neuts % (Manual) Lymphocytes % (Manual) Seg Neutrophils # Seg Neutrophils # Man Lymphocytes # (Manual) APTT POC ABG pH ABG pH POC ABG pCO2 POC ABG pO2 ABG pO2 ABG HCO3 ABG Base Excess ABG Hemoglobin VBG pH Oxyhemoglobin Sodium Potassium Chloride Carbon Dioxide BUN Creatinine Glucose POC Glucose 246 H 212 H 236 H Lactic Acid Calcium AST Alkaline Phosphatase CK-MB (CK-2) CK-MB (CK-2) Rel Index Albumin TSH Urine WBC (Auto) Salicylates 02/22/17 02/23/17 02/23/17 21:33 06:04 10:00 WBC RBC Hgb Hct MCV MCH RDW Plt Count Lymph % (Auto) [place] % (Auto) Eos % (Auto) Seg Neutrophils % Seg Neuts % (Manual) Lymphocytes % (Manual) Seg Neutrophils # Seg Neutrophils # Man Lymphocytes # (Manual) APTT POC ABG pH ABG pH POC ABG pCO2 POC ABG pO2 ABG pO2 ABG HCO3 ABG Base Excess ABG Hemoglobin VBG pH Oxyhemoglobin Sodium Potassium Chloride Carbon Dioxide BUN Creatinine Glucose POC Glucose 255 H 208 H 174 H Lactic Acid Calcium AST Alkaline Phosphatase CK-MB (CK-2) CK-MB (CK-2) Rel Index Albumin TSH Urine WBC (Auto) Salicylates 02/23/17 02/23/17 02/23/17 12:52 17:15 21:51 WBC RBC Hgb Hct MCV MCH RDW Plt Count Lymph % (Auto) [place] % (Auto) Eos % (Auto) Seg Neutrophils % Seg Neuts % (Manual) Lymphocytes % (Manual) Seg Neutrophils # Seg Neutrophils # Man Lymphocytes # (Manual) APTT POC ABG pH ABG pH POC ABG pCO2 POC ABG pO2 ABG pO2 ABG HCO3 ABG Base Excess ABG Hemoglobin VBG pH Oxyhemoglobin Sodium Potassium Chloride Carbon Dioxide BUN Creatinine Glucose POC Glucose 203 H 269 H 205 H Lactic Acid Calcium AST Alkaline Phosphatase CK-MB (CK-2) CK-MB (CK-2) Rel Index Albumin TSH Urine WBC (Auto) Salicylates 02/24/17 02/24/17 02/24/17 10:23 17:45 21:24 WBC RBC Hgb Hct MCV MCH RDW Plt Count Lymph % (Auto) [place] % (Auto) Eos % (Auto) Seg Neutrophils % Seg Neuts % (Manual) Lymphocytes % (Manual) Seg Neutrophils # Seg Neutrophils # Man Lymphocytes # (Manual) APTT POC ABG pH ABG pH POC ABG pCO2 POC ABG pO2 ABG pO2 ABG HCO3 ABG Base Excess ABG Hemoglobin VBG pH Oxyhemoglobin Sodium Potassium Chloride Carbon Dioxide BUN Creatinine Glucose POC Glucose 280 H 239 H 254 H Lactic Acid Calcium AST Alkaline Phosphatase CK-MB (CK-2) CK-MB (CK-2) Rel Index Albumin TSH Urine WBC (Auto) Salicylates 02/25/17 02/25/17 02/25/17 02:12 05:17 14:32 WBC RBC Hgb Hct MCV MCH RDW Plt Count Lymph % (Auto) [place] % (Auto) Eos % (Auto) Seg Neutrophils % Seg Neuts % (Manual) Lymphocytes % (Manual) Seg Neutrophils # Seg Neutrophils # Man Lymphocytes # (Manual) APTT POC ABG pH ABG pH POC ABG pCO2 POC ABG pO2 ABG pO2 ABG HCO3 ABG Base Excess ABG Hemoglobin VBG pH Oxyhemoglobin Sodium Potassium Chloride Carbon Dioxide BUN Creatinine Glucose POC Glucose 296 H 332 H 353 H Lactic Acid Calcium AST Alkaline Phosphatase CK-MB (CK-2) CK-MB (CK-2) Rel Index Albumin TSH Urine WBC (Auto) Salicylates 02/25/17 02/26/17 02/26/17 22:14 00:37 05:52 WBC RBC Hgb Hct MCV MCH RDW Plt Count Lymph % (Auto) [place] % (Auto) Eos % (Auto) Seg Neutrophils % Seg Neuts % (Manual) Lymphocytes % (Manual) Seg Neutrophils # Seg Neutrophils # Man Lymphocytes # (Manual) APTT POC ABG pH ABG pH POC ABG pCO2 POC ABG pO2 ABG pO2 ABG HCO3 ABG Base Excess ABG Hemoglobin VBG pH Oxyhemoglobin Sodium Potassium Chloride Carbon Dioxide BUN Creatinine Glucose POC Glucose 201 H 233 H 269 H Lactic Acid Calcium AST Alkaline Phosphatase CK-MB (CK-2) CK-MB (CK-2) Rel Index Albumin TSH Urine WBC (Auto) Salicylates 02/26/17 02/26/17 02/26/17 11:48 13:49 21:26 WBC RBC Hgb Hct MCV MCH RDW Plt Count Lymph % (Auto) [place] % (Auto) Eos % (Auto) Seg Neutrophils % Seg Neuts % (Manual) Lymphocytes % (Manual) Seg Neutrophils # Seg Neutrophils # Man Lymphocytes # (Manual) APTT POC ABG pH ABG pH POC ABG pCO2 POC ABG pO2 ABG pO2 ABG HCO3 ABG Base Excess ABG Hemoglobin VBG pH Oxyhemoglobin Sodium Potassium Chloride Carbon Dioxide BUN Creatinine Glucose POC Glucose 333 H 322 H 244 H Lactic Acid Calcium AST Alkaline Phosphatase CK-MB (CK-2) CK-MB (CK-2) Rel Index Albumin TSH Urine WBC (Auto) Salicylates 02/27/17 02/27/17 02/27/17 05:27 13:51 21:48 WBC RBC Hgb Hct MCV MCH RDW Plt Count Lymph % (Auto) [place] % (Auto) Eos % (Auto) Seg Neutrophils % Seg Neuts % (Manual) Lymphocytes % (Manual) Seg Neutrophils # Seg Neutrophils # Man Lymphocytes # (Manual) APTT POC ABG pH ABG pH POC ABG pCO2 POC ABG pO2 ABG pO2 ABG HCO3 ABG Base Excess ABG Hemoglobin VBG pH Oxyhemoglobin Sodium Potassium Chloride Carbon Dioxide BUN Creatinine Glucose POC Glucose 217 H 239 H 254 H Lactic Acid Calcium AST Alkaline Phosphatase CK-MB (CK-2) CK-MB (CK-2) Rel Index Albumin TSH Urine WBC (Auto) Salicylates 02/28/17 02/28/17 02/28/17 05:38 11:00 19:44 WBC RBC Hgb Hct MCV MCH RDW Plt Count Lymph % (Auto) [place] % (Auto) Eos % (Auto) Seg Neutrophils % Seg Neuts % (Manual) Lymphocytes % (Manual) Seg Neutrophils # Seg Neutrophils # Man Lymphocytes # (Manual) APTT POC ABG pH ABG pH POC ABG pCO2 POC ABG pO2 ABG pO2 ABG HCO3 ABG Base Excess ABG Hemoglobin VBG pH Oxyhemoglobin Sodium Potassium Chloride Carbon Dioxide BUN Creatinine Glucose POC Glucose 325 H 203 H 116 H Lactic Acid Calcium AST Alkaline Phosphatase CK-MB (CK-2) CK-MB (CK-2) Rel Index Albumin TSH Urine WBC (Auto) Salicylates 03/01/17 03/01/17 03/01/17 00:08 05:31 12:17 WBC RBC Hgb Hct MCV MCH RDW Plt Count Lymph % (Auto) [place] % (Auto) Eos % (Auto) Seg Neutrophils % Seg Neuts % (Manual) Lymphocytes % (Manual) Seg Neutrophils # Seg Neutrophils # Man Lymphocytes # (Manual) APTT POC ABG pH ABG pH POC ABG pCO2 POC ABG pO2 ABG pO2 ABG HCO3 ABG Base Excess ABG Hemoglobin VBG pH Oxyhemoglobin Sodium Potassium Chloride Carbon Dioxide BUN Creatinine Glucose POC Glucose 202 H 183 H 184 H Lactic Acid Calcium AST Alkaline Phosphatase CK-MB (CK-2) CK-MB (CK-2) Rel Index Albumin TSH Urine WBC (Auto) Salicylates 03/02/17 03/02/17 03/02/17 00:12 05:58 18:22 WBC RBC Hgb Hct MCV MCH RDW Plt Count Lymph % (Auto) [place] % (Auto) Eos % (Auto) Seg Neutrophils % Seg Neuts % (Manual) Lymphocytes % (Manual) Seg Neutrophils # Seg Neutrophils # Man Lymphocytes # (Manual) APTT POC ABG pH ABG pH POC ABG pCO2 POC ABG pO2 ABG pO2 ABG HCO3 ABG Base Excess ABG Hemoglobin VBG pH Oxyhemoglobin Sodium Potassium Chloride Carbon Dioxide BUN Creatinine Glucose POC Glucose 117 H 176 H 156 H Lactic Acid Calcium AST Alkaline Phosphatase CK-MB (CK-2) CK-MB (CK-2) Rel Index Albumin TSH Urine WBC (Auto) Salicylates 03/02/17 03/03/17 03/03/17 23:51 05:44 11:32 WBC RBC Hgb Hct MCV MCH RDW Plt Count Lymph % (Auto) [place] % (Auto) Eos % (Auto) Seg Neutrophils % Seg Neuts % (Manual) Lymphocytes % (Manual) Seg Neutrophils # Seg Neutrophils # Man Lymphocytes # (Manual) APTT POC ABG pH ABG pH POC ABG pCO2 POC ABG pO2 ABG pO2 ABG HCO3 ABG Base Excess ABG Hemoglobin VBG pH Oxyhemoglobin Sodium Potassium Chloride Carbon Dioxide BUN Creatinine Glucose POC Glucose 211 H 117 H 133 H Lactic Acid Calcium AST Alkaline Phosphatase CK-MB (CK-2) CK-MB (CK-2) Rel Index Albumin TSH Urine WBC (Auto) Salicylates 03/03/17 03/03/17 03/04/17 17:43 23:17 05:30 WBC RBC Hgb Hct MCV MCH RDW Plt Count Lymph % (Auto) [place] % (Auto) Eos % (Auto) Seg Neutrophils % Seg Neuts % (Manual) Lymphocytes % (Manual) Seg Neutrophils # Seg Neutrophils # Man Lymphocytes # (Manual) APTT POC ABG pH ABG pH POC ABG pCO2 POC ABG pO2 ABG pO2 ABG HCO3 ABG Base Excess ABG Hemoglobin VBG pH Oxyhemoglobin Sodium Potassium Chloride Carbon Dioxide BUN Creatinine Glucose POC Glucose 206 H 170 H 126 H Lactic Acid Calcium AST Alkaline Phosphatase CK-MB (CK-2) CK-MB (CK-2) Rel Index Albumin TSH Urine WBC (Auto) Salicylates 03/04/17 03/04/17 03/05/17 12:17 17:27 05:20 WBC RBC Hgb Hct MCV MCH RDW Plt Count Lymph % (Auto) [place] % (Auto) Eos % (Auto) Seg Neutrophils % Seg Neuts % (Manual) Lymphocytes % (Manual) Seg Neutrophils # Seg Neutrophils # Man Lymphocytes # (Manual) APTT POC ABG pH ABG pH POC ABG pCO2 POC ABG pO2 ABG pO2 ABG HCO3 ABG Base Excess ABG Hemoglobin VBG pH Oxyhemoglobin Sodium Potassium Chloride Carbon Dioxide BUN Creatinine Glucose POC Glucose 135 H 121 H 185 H Lactic Acid Calcium AST Alkaline Phosphatase CK-MB (CK-2) CK-MB (CK-2) Rel Index Albumin TSH Urine WBC (Auto) Salicylates 03/05/17 03/06/17 03/06/17 11:50 11:52 17:34 WBC RBC Hgb Hct MCV MCH RDW Plt Count Lymph % (Auto) [place] % (Auto) Eos % (Auto) Seg Neutrophils % Seg Neuts % (Manual) Lymphocytes % (Manual) Seg Neutrophils # Seg Neutrophils # Man Lymphocytes # (Manual) APTT POC ABG pH ABG pH POC ABG pCO2 POC ABG pO2 ABG pO2 ABG HCO3 ABG Base Excess ABG Hemoglobin VBG pH Oxyhemoglobin Sodium Potassium Chloride Carbon Dioxide BUN Creatinine Glucose POC Glucose 116 H 133 H 181 H Lactic Acid Calcium AST Alkaline Phosphatase CK-MB (CK-2) CK-MB (CK-2) Rel Index Albumin TSH Urine WBC (Auto) Salicylates 03/07/17 03/07/17 03/07/17 05:21 11:36 17:49 WBC RBC Hgb Hct MCV MCH RDW Plt Count Lymph % (Auto) [place] % (Auto) Eos % (Auto) Seg Neutrophils % Seg Neuts % (Manual) Lymphocytes % (Manual) Seg Neutrophils # Seg Neutrophils # Man Lymphocytes # (Manual) APTT POC ABG pH ABG pH POC ABG pCO2 POC ABG pO2 ABG pO2 ABG HCO3 ABG Base Excess ABG Hemoglobin VBG pH Oxyhemoglobin Sodium Potassium Chloride Carbon Dioxide BUN Creatinine Glucose POC Glucose 159 H 137 H 158 H Lactic Acid Calcium AST Alkaline Phosphatase CK-MB (CK-2) CK-MB (CK-2) Rel Index Albumin TSH Urine WBC (Auto) Salicylates 03/08/17 03/08/17 03/08/17 05:51 13:58 23:50 WBC RBC Hgb Hct MCV MCH RDW Plt Count Lymph % (Auto) [place] % (Auto) Eos % (Auto) Seg Neutrophils % Seg Neuts % (Manual) Lymphocytes % (Manual) Seg Neutrophils # Seg Neutrophils # Man Lymphocytes # (Manual) APTT POC ABG pH ABG pH POC ABG pCO2 POC ABG pO2 ABG pO2 ABG HCO3 ABG Base Excess ABG Hemoglobin VBG pH Oxyhemoglobin Sodium Potassium Chloride Carbon Dioxide BUN Creatinine Glucose POC Glucose 122 H 182 H 114 H Lactic Acid Calcium AST Alkaline Phosphatase CK-MB (CK-2) CK-MB (CK-2) Rel Index Albumin TSH Urine WBC (Auto) Salicylates 03/09/17 03/09/17 03/09/17 05:21 05:51 05:51 WBC RBC 3.61 L Hgb 9.5 L Hct 28.3 L MCV 79 L MCH 26 L RDW 17.8 H Plt Count Lymph % (Auto) [place] % (Auto) Eos % (Auto) Seg Neutrophils % Seg Neuts % (Manual) Lymphocytes % (Manual) Seg Neutrophils # Seg Neutrophils # Man Lymphocytes # (Manual) APTT POC ABG pH ABG pH POC ABG pCO2 POC ABG pO2 ABG pO2 ABG HCO3 ABG Base Excess ABG Hemoglobin VBG pH Oxyhemoglobin Sodium 134 L Potassium Chloride 95.5 L Carbon Dioxide BUN 33 H Creatinine 0.5 L Glucose 143 H POC Glucose 153 H Lactic Acid Calcium AST Alkaline Phosphatase CK-MB (CK-2) CK-MB (CK-2) Rel Index Albumin TSH Urine WBC (Auto) Salicylates 03/09/17 03/09/17 03/09/17 12:10 18:13 21:00 WBC RBC Hgb Hct MCV MCH RDW Plt Count Lymph % (Auto) [place] % (Auto) Eos % (Auto) Seg Neutrophils % Seg Neuts % (Manual) Lymphocytes % (Manual) Seg Neutrophils # Seg Neutrophils # Man Lymphocytes # (Manual) APTT POC ABG pH ABG pH POC ABG pCO2 POC ABG pO2 ABG pO2 ABG HCO3 ABG Base Excess ABG Hemoglobin VBG pH Oxyhemoglobin Sodium Potassium Chloride Carbon Dioxide BUN Creatinine Glucose POC Glucose 203 H 221 H 198 H Lactic Acid Calcium AST Alkaline Phosphatase CK-MB (CK-2) CK-MB (CK-2) Rel Index Albumin TSH Urine WBC (Auto) Salicylates 03/09/17 03/10/17 03/10/17 23:58 05:09 05:09 WBC RBC Hgb 10.3 L Hct 30.5 L MCV 78 L MCH 26 L RDW 17.9 H Plt Count Lymph % (Auto) [place] % (Auto) 10.0 H Eos % (Auto) 6.0 H Seg Neutrophils % Seg Neuts % (Manual) Lymphocytes % (Manual) Seg Neutrophils # Seg Neutrophils # Man Lymphocytes # (Manual) APTT POC ABG pH ABG pH POC ABG pCO2 POC ABG pO2 ABG pO2 ABG HCO3 ABG Base Excess ABG Hemoglobin VBG pH Oxyhemoglobin Sodium 132 L Potassium Chloride 92.2 L Carbon Dioxide BUN 33 H Creatinine 0.5 L Glucose 50 L POC Glucose 167 H Lactic Acid Calcium AST Alkaline Phosphatase CK-MB (CK-2) CK-MB (CK-2) Rel Index Albumin TSH Urine WBC (Auto) Salicylates 03/10/17 03/10/17 03/10/17 05:33 05:34 11:48 WBC RBC Hgb Hct MCV MCH RDW Plt Count Lymph % (Auto) [place] % (Auto) Eos % (Auto) Seg Neutrophils % Seg Neuts % (Manual) Lymphocytes % (Manual) Seg Neutrophils # Seg Neutrophils # Man Lymphocytes # (Manual) APTT POC ABG pH ABG pH POC ABG pCO2 POC ABG pO2 ABG pO2 ABG HCO3 ABG Base Excess ABG Hemoglobin VBG pH Oxyhemoglobin Sodium Potassium Chloride Carbon Dioxide BUN Creatinine Glucose POC Glucose 52 L 53 L 148 H Lactic Acid Calcium AST Alkaline Phosphatase CK-MB (CK-2) CK-MB (CK-2) Rel Index Albumin TSH Urine WBC (Auto) Salicylates 03/10/17 03/10/17 03/11/17 17:53 23:47 05:18 WBC RBC Hgb Hct MCV MCH RDW Plt Count Lymph % (Auto) [place] % (Auto) Eos % (Auto) Seg Neutrophils % Seg Neuts % (Manual) Lymphocytes % (Manual) Seg Neutrophils # Seg Neutrophils # Man Lymphocytes # (Manual) APTT POC ABG pH ABG pH POC ABG pCO2 POC ABG pO2 ABG pO2 ABG HCO3 ABG Base Excess ABG Hemoglobin VBG pH Oxyhemoglobin Sodium Potassium Chloride Carbon Dioxide BUN Creatinine Glucose POC Glucose 189 H 398 H 126 H Lactic Acid Calcium AST Alkaline Phosphatase CK-MB (CK-2) CK-MB (CK-2) Rel Index Albumin TSH Urine WBC (Auto) Salicylates 03/11/17 03/11/17 03/11/17 11:53 17:30 23:10 WBC RBC Hgb Hct MCV MCH RDW Plt Count Lymph % (Auto) [place] % (Auto) Eos % (Auto) Seg Neutrophils % Seg Neuts % (Manual) Lymphocytes % (Manual) Seg Neutrophils # Seg Neutrophils # Man Lymphocytes # (Manual) APTT POC ABG pH ABG pH POC ABG pCO2 POC ABG pO2 ABG pO2 ABG HCO3 ABG Base Excess ABG Hemoglobin VBG pH Oxyhemoglobin Sodium Potassium Chloride Carbon Dioxide BUN Creatinine Glucose POC Glucose 198 H 142 H 244 H Lactic Acid Calcium AST Alkaline Phosphatase CK-MB (CK-2) CK-MB (CK-2) Rel Index Albumin TSH Urine WBC (Auto) Salicylates 03/12/17 03/12/17 03/12/17 04:36 11:49 17:23 WBC RBC Hgb Hct MCV MCH RDW Plt Count Lymph % (Auto) [place] % (Auto) Eos % (Auto) Seg Neutrophils % Seg Neuts % (Manual) Lymphocytes % (Manual) Seg Neutrophils # Seg Neutrophils # Man Lymphocytes # (Manual) APTT POC ABG pH ABG pH POC ABG pCO2 POC ABG pO2 ABG pO2 ABG HCO3 ABG Base Excess ABG Hemoglobin VBG pH Oxyhemoglobin Sodium Potassium Chloride Carbon Dioxide BUN Creatinine Glucose POC Glucose 205 H 197 H 209 H Lactic Acid Calcium AST Alkaline Phosphatase CK-MB (CK-2) CK-MB (CK-2) Rel Index Albumin TSH Urine WBC (Auto) Salicylates 03/12/17 03/13/17 03/13/17 23:51 05:32 11:43 WBC RBC Hgb Hct MCV MCH RDW Plt Count Lymph % (Auto) [place] % (Auto) Eos % (Auto) Seg Neutrophils % Seg Neuts % (Manual) Lymphocytes % (Manual) Seg Neutrophils # Seg Neutrophils # Man Lymphocytes # (Manual) APTT POC ABG pH ABG pH POC ABG pCO2 POC ABG pO2 ABG pO2 ABG HCO3 ABG Base Excess ABG Hemoglobin VBG pH Oxyhemoglobin Sodium Potassium Chloride Carbon Dioxide BUN Creatinine Glucose POC Glucose 210 H 154 H 164 H Lactic Acid Calcium AST Alkaline Phosphatase CK-MB (CK-2) CK-MB (CK-2) Rel Index Albumin TSH Urine WBC (Auto) Salicylates 03/13/17 03/13/17 03/14/17 17:11 23:26 05:42 WBC RBC Hgb Hct MCV MCH RDW Plt Count Lymph % (Auto) [place] % (Auto) Eos % (Auto) Seg Neutrophils % Seg Neuts % (Manual) Lymphocytes % (Manual) Seg Neutrophils # Seg Neutrophils # Man Lymphocytes # (Manual) APTT POC ABG pH ABG pH POC ABG pCO2 POC ABG pO2 ABG pO2 ABG HCO3 ABG Base Excess ABG Hemoglobin VBG pH Oxyhemoglobin Sodium Potassium Chloride Carbon Dioxide BUN Creatinine Glucose POC Glucose 195 H 240 H 230 H Lactic Acid Calcium AST Alkaline Phosphatase CK-MB (CK-2) CK-MB (CK-2) Rel Index Albumin TSH Urine WBC (Auto) Salicylates 03/14/17 03/14/17 03/14/17 14:04 17:34 23:42 WBC RBC Hgb Hct MCV MCH RDW Plt Count Lymph % (Auto) [place] % (Auto) Eos % (Auto) Seg Neutrophils % Seg Neuts % (Manual) Lymphocytes % (Manual) Seg Neutrophils # Seg Neutrophils # Man Lymphocytes # (Manual) APTT POC ABG pH ABG pH POC ABG pCO2 POC ABG pO2 ABG pO2 ABG HCO3 ABG Base Excess ABG Hemoglobin VBG pH Oxyhemoglobin Sodium Potassium Chloride Carbon Dioxide BUN Creatinine Glucose POC Glucose 227 H 186 H 225 H Lactic Acid Calcium AST Alkaline Phosphatase CK-MB (CK-2) CK-MB (CK-2) Rel Index Albumin TSH Urine WBC (Auto) Salicylates 03/15/17 03/15/17 03/15/17 05:21 17:13 21:37 WBC RBC Hgb Hct MCV MCH RDW Plt Count Lymph % (Auto) [place] % (Auto) Eos % (Auto) Seg Neutrophils % Seg Neuts % (Manual) Lymphocytes % (Manual) Seg Neutrophils # Seg Neutrophils # Man Lymphocytes # (Manual) APTT POC ABG pH ABG pH POC ABG pCO2 POC ABG pO2 ABG pO2 ABG HCO3 ABG Base Excess ABG Hemoglobin VBG pH Oxyhemoglobin Sodium Potassium Chloride Carbon Dioxide BUN Creatinine Glucose POC Glucose 244 H 203 H 216 H Lactic Acid Calcium AST Alkaline Phosphatase CK-MB (CK-2) CK-MB (CK-2) Rel Index Albumin TSH Urine WBC (Auto) Salicylates 03/16/17 05:52 WBC RBC Hgb Hct MCV MCH RDW Plt Count Lymph % (Auto) [place] % (Auto) Eos % (Auto) Seg Neutrophils % Seg Neuts % (Manual) Lymphocytes % (Manual) Seg Neutrophils # Seg Neutrophils # Man Lymphocytes # (Manual) APTT POC ABG pH ABG pH POC ABG pCO2 POC ABG pO2 ABG pO2 ABG HCO3 ABG Base Excess ABG Hemoglobin VBG pH Oxyhemoglobin Sodium Potassium Chloride Carbon Dioxide BUN Creatinine Glucose POC Glucose 248 H Lactic Acid Calcium AST Alkaline Phosphatase CK-MB (CK-2) CK-MB (CK-2) Rel Index Albumin TSH Urine WBC (Auto) Salicylates
[2017-03-16] MEDS: PEPCID PO SCH ×2 (11:59→22:11)
[2017-03-16] MEDS: HEPARIN SUB-Q SCH ×2 (11:59→22:11)
[2017-03-17] MEDS: SYNTHROID PO SCH (06:26)
[2017-03-17] MEDS: HumuLIN R SUB-Q SCH ×3 (07:15→22:23)
[2017-03-17 08:12] LABS: Hematocrit 29.1 % (35.5-45.6); Hemoglobin 9.7 gm/dl (11.8-15.2); Mean Corpuscular HGB Conc 33 % (32-34); Mean Corpuscular Hemoglobin 26 pg (28-32); Mean Corpuscular Volume 78 fl (84-94); Platelet Count 334 K/mm3 (140-440); Red Blood Count 3.72 M/mm3 (3.65-5.03); Red Cell Distribution Width 17.4 % (13.2-15.2)
--- NOTE | 2017-03-17 08:18 | Progress Note ---
Assessment and Plan Hypoglycemic brain injury Persistent vegetative state Metabolic encephalopathy Hypoglycemia/hypothermia, resolved Acute respiratory failure mechanical ventilator greater than 96 hours UTI with klebsiella, treated ( Cx + on 01/28), then with ESBL likely colonization hyponatremia, Hypothyroidism IDDM Hypertension low grade Fever, resolved - Cont supportive care and current medication. Monitor vitals, repeat cx on - no growth - increased dose of long acting insulin to 15 unit - Patient is DNR- needs guardianship from the state to give consent for further management, as has no family to give consent. Brief History: 51 YO Male with CKD,HTN, DM presents to ED after found down and unresponsive by his neighbor, who subsequently called EMS. Upon arrival, patient found unresponsive on the floor with a serum glucose of 21, patient has a known history of alcohol abuse and delirium tremens. The patient was administered D5 approximate 500 mls during transport without change in mental status/level of consciousness. Pt seen and evaluated in ED was was found to be unable to protect his airway. Pt intubated and placed on vent support. Pt found to have evidence of hypothyroidism. He was started on Synthroid. He has since been in the ICU. director of business services try to locate family, even spoke to the family who he lives with. They themselves were unaware of any family members. After ethics committee meeting on the patient. The decision was made to make him DO NOT RESUSCITATE and to transfer him to hospice. Given his very poor prognosis and poor likelihood of recovery. It was decided that was not his best interest to get trach and PEG. Therefore he'll be transferred to the hospice intubated. Now Awaiting on court ordered /state guardianship. Hospitalist Physical - Physical exam Narrative exam: General: comatose HEENT: Moist mucous membranes, , no lymphadenopathy Neck: supple Cardiac: S1-S2 heard Lungs: mechnical ventilated breath sounds Abdomen: soft , nontender, nondistended, bowel sounds positive Extremities: no edema clubbing or cyanosis Skin: no rash or lesions Neurologic: opens eyes, no response to deep painful stimuli, does not follow commend Subjective Date of service: 03/17/17 Principal diagnosis: Acute respiratory failure,encephalopathy Interval history: patient remains comatose, no movement of extremities afebrile o/n, no clinical change Objective - Constitutional Vitals: Vital Signs - 12hr 03/16/17 03/16/17 03/16/17 21:01 22:00 22:01 Temperature Pulse Rate 69 59 L 74 Respiratory 17 15 Rate Blood Pressure 134/86 134/86 O2 Sat by Pulse 100 100 Oximetry 03/16/17 03/16/17 03/17/17 23:01 23:41 00:00 Temperature 99.0 F Pulse Rate 67 72 74 Respiratory 14 16 Rate Blood Pressure 134/86 134/86 133/86 O2 Sat by Pulse 100 100 100 Oximetry 03/17/17 03/17/17 03/17/17 01:01 02:01 03:01 Temperature Pulse Rate 70 65 61 Respiratory 17 13 15 Rate Blood Pressure 133/86 133/86 133/86 O2 Sat by Pulse 100 100 100 Oximetry 03/17/17 03/17/17 03/17/17 03:46 04:01 08:00 Temperature Pulse Rate 60 58 L 72 Respiratory 15 Rate Blood Pressure 133/86 133/86 142/85 O2 Sat by Pulse 100 100 100 Oximetry - Labs CBC & Chem 7: 03/17/17 07:43 03/10/17 05:09 Labs: Abnormal lab results 03/16/17 03/16/17 03/17/17 Range/Units 18:07 21:54 07:07 Hgb (11.8-15.2) gm/dl Hct (35.5-45.6) % MCV (84-94) fl MCH (28-32) pg RDW (13.2-15.2) % POC Glucose 254 H 244 H 222 H (70-105) 03/17/17 Range/Units 07:43 Hgb 9.7 L (11.8-15.2) gm/dl Hct 29.1 L (35.5-45.6) % MCV 78 L (84-94) fl MCH 26 L (28-32) pg RDW 17.4 H (13.2-15.2) % POC Glucose (70-105)
[2017-03-17 08:30] LABS: BUN/Creatinine Ratio 60; Blood Urea Nitrogen 30 mg/dL (9-20); Calcium 9.2 mg/dL (8.4-10.2); Hemolysis Index 1
--- NOTE | 2017-03-17 09:54 | Progress Note ---
Assessment and Plan 51 y/o male found down, concern for sepsis and now encephalopathic requiring mechanical ventilation. 1. continue supportive care 2. 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 I am aware that he is an AND but trach will not fix this problem and is not in my professional opinion the right thing to do for this patient. Most likely he will never be weaned from the vent and will remain in a persistent vegatative state. 3. Patient is not on abx therapy and currently does not need this 4. Overall prognosis continues to be poor. 5. Will not check labs 6. Vitals should be qshift 7. This patient's possibility of awakening from this persistent vegatative is unlikely. The current status is that there has been paper work filed to obtain guardianship so that end of life decisions can be made. Supportive care is reasonable but checking daily labs and doing other invasive things to this patient I do not feel is morally and ethically appropriate. Will discuss with IMS about this as well. Subjective Date of service: 03/17/17 Principal diagnosis: Acute respiratory failure,encephalopathy Interval history: No acute events. Labs ordered, most likely by IMS. Unsure why. Clinically unchanged. Objective Vital Signs - 12hr 03/16/17 03/16/17 03/16/17 22:00 22:01 23:01 Temperature Pulse Rate 59 L 74 67 Respiratory 15 14 Rate Blood Pressure 134/86 134/86 O2 Sat by Pulse 100 100 Oximetry 03/16/17 03/17/17 03/17/17 23:41 00:00 01:01 Temperature 99.0 F Pulse Rate 72 74 70 Respiratory 16 17 Rate Blood Pressure 134/86 133/86 133/86 O2 Sat by Pulse 100 100 100 Oximetry 03/17/17 03/17/17 03/17/17 02:01 03:01 03:46 Temperature Pulse Rate 65 61 60 Respiratory 13 15 Rate Blood Pressure 133/86 133/86 133/86 O2 Sat by Pulse 100 100 100 Oximetry 03/17/17 03/17/17 04:01 08:00 Temperature 98.9 F Pulse Rate 58 L 72 Respiratory 15 Rate Blood Pressure 133/86 142/85 O2 Sat by Pulse 100 100 Oximetry Constitutional: no acute distress, other (intubated, on vent support) Eyes: non-icteric ENT: oropharynx moist Neck: supple Effort: normal Ascultation: Bilateral: clear, diminished breath sounds Cardiovascular: regular rate and rhythm Gastrointestinal: normoactive bowel sounds, soft, non-tender, non-distended Integumentary: normal Extremities: no cyanosis, no edema, pink and warm Neurologic: other (awake spontaneously, not not following any commands. Fixed stare.) Psychiatric: other (unable to obtain) CBC and BMP: 03/17/17 07:43 03/17/17 07:42 ABG, PT/INR, D-dimer: ABG POC ABG pH 7.442 (7.35-7.45) 01/31/17 18:55 ABG pH 7.420 pH Units (7.350-7.450) 01/17/17 04:35 POC ABG pCO2 32.8 (35-45) L 01/31/17 18:55 ABG pCO2 34.5 mm Hg 01/17/17 04:35 POC ABG pO2 82 (80-105) 01/31/17 18:55 ABG pO2 160.3 mm Hg (80.0-90.0) H 01/17/17 04:35 POC ABG HCO3 22.4 01/31/17 18:55 POC ABG Total CO2 23 01/31/17 18:55 POC ABG O2 Sat 97 01/31/17 18:55 ABG O2 Saturation 99.0 % (95.0-99.0) 01/17/17 04:35 PT/INR, D-dimer PT 14.1 Sec. (12.2-14.9) 01/17/17 04:10 INR 1.04 (0.87-1.13) 01/17/17 04:10 Abnormal lab findings: Abnormal Labs 01/09/17 01/09/17 01/09/17 10:16 10:16 10:16 WBC RBC Hgb 9.7 L Hct 28.4 L MCV 76 L MCH 26 L RDW 17.2 H Plt Count 448 H Lymph % (Auto) Lea % (Auto) Eos % (Auto) Seg Neutrophils % 79.5 H Seg Neuts % (Manual) Lymphocytes % (Manual) Seg Neutrophils # Seg Neutrophils # Man Lymphocytes # (Manual) APTT 39.6 H POC ABG pH ABG pH POC ABG pCO2 POC ABG pO2 ABG pO2 ABG HCO3 ABG Base Excess ABG Hemoglobin VBG pH Oxyhemoglobin Sodium 132 L Potassium Chloride 96.7 L Carbon Dioxide 21 L BUN 34 H Creatinine Glucose POC Glucose Lactic Acid Calcium 8.3 L AST Alkaline Phosphatase 151 H CK-MB (CK-2) 7.1 H CK-MB (CK-2) Rel Index 5.2 H Albumin 3.3 L TSH Urine WBC (Auto) Salicylates 01/09/17 01/09/17 01/09/17 10:16 10:16 10:16 WBC RBC Hgb Hct MCV MCH RDW Plt Count Lymph % (Auto) Lea % (Auto) Eos % (Auto) Seg Neutrophils % Seg Neuts % (Manual) Lymphocytes % (Manual) Seg Neutrophils # Seg Neutrophils # Man Lymphocytes # (Manual) APTT POC ABG pH ABG pH POC ABG pCO2 POC ABG pO2 ABG pO2 ABG HCO3 ABG Base Excess ABG Hemoglobin VBG pH 7.284 L Oxyhemoglobin Sodium Potassium Chloride Carbon Dioxide BUN Creatinine Glucose POC Glucose Lactic Acid Calcium AST Alkaline Phosphatase CK-MB (CK-2) CK-MB (CK-2) Rel Index Albumin TSH 52.800 H Urine WBC (Auto) Salicylates < 0.3 L 01/09/17 01/09/17 01/09/17 10:23 11:14 12:49 WBC RBC Hgb Hct MCV MCH RDW Plt Count Lymph % (Auto) Lea % (Auto) Eos % (Auto) Seg Neutrophils % Seg Neuts % (Manual) Lymphocytes % (Manual) Seg Neutrophils # Seg Neutrophils # Man Lymphocytes # (Manual) APTT POC ABG pH ABG pH POC ABG pCO2 POC ABG pO2 643 H ABG pO2 ABG HCO3 ABG Base Excess ABG Hemoglobin VBG pH Oxyhemoglobin Sodium Potassium Chloride Carbon Dioxide BUN Creatinine Glucose POC Glucose < 40 L Lactic Acid Calcium AST Alkaline Phosphatase CK-MB (CK-2) CK-MB (CK-2) Rel Index Albumin TSH Urine WBC (Auto) 61.0 H Salicylates 01/09/17 01/09/17 01/09/17 13:13 14:21 15:09 WBC RBC Hgb Hct MCV MCH RDW Plt Count Lymph % (Auto) Lea % (Auto) Eos % (Auto) Seg Neutrophils % Seg Neuts % (Manual) Lymphocytes % (Manual) Seg Neutrophils # Seg Neutrophils # Man Lymphocytes # (Manual) APTT POC ABG pH ABG pH POC ABG pCO2 POC ABG pO2 ABG pO2 ABG HCO3 ABG Base Excess ABG Hemoglobin VBG pH Oxyhemoglobin Sodium Potassium Chloride Carbon Dioxide BUN Creatinine Glucose POC Glucose 128 H 65 L 120 H Lactic Acid Calcium AST Alkaline Phosphatase CK-MB (CK-2) CK-MB (CK-2) Rel Index Albumin TSH Urine WBC (Auto) Salicylates 01/09/17 01/09/17 01/10/17 16:28 17:14 04:30 WBC 24.1 H RBC 3.38 L Hgb 8.5 L Hct 26.0 L MCV 77 L MCH 25 L RDW 17.9 H Plt Count 474 H Lymph % (Auto) Lea % (Auto) Eos % (Auto) Seg Neutrophils % Seg Neuts % (Manual) 88.0 H Lymphocytes % (Manual) 4.0 L Seg Neutrophils # Seg Neutrophils # Man 21.2 H Lymphocytes # (Manual) 1.0 L APTT POC ABG pH ABG pH POC ABG pCO2 POC ABG pO2 ABG pO2 ABG HCO3 ABG Base Excess ABG Hemoglobin VBG pH Oxyhemoglobin Sodium Potassium Chloride Carbon Dioxide BUN Creatinine Glucose POC Glucose 44 L 112 H Lactic Acid Calcium AST Alkaline Phosphatase CK-MB (CK-2) CK-MB (CK-2) Rel Index Albumin TSH Urine WBC (Auto) Salicylates 01/10/17 01/10/17 01/10/17 04:30 05:41 05:45 WBC RBC Hgb Hct MCV MCH RDW Plt Count Lymph % (Auto) Lea % (Auto) Eos % (Auto) Seg Neutrophils % Seg Neuts % (Manual) Lymphocytes % (Manual) Seg Neutrophils # Seg Neutrophils # Man Lymphocytes # (Manual) APTT POC ABG pH ABG pH POC ABG pCO2 26.6 L POC ABG pO2 207 H ABG pO2 ABG HCO3 ABG Base Excess ABG Hemoglobin VBG pH Oxyhemoglobin Sodium Potassium Chloride Carbon Dioxide 17 L BUN 27 H Creatinine Glucose POC Glucose 68 L Lactic Acid Calcium 7.5 L AST Alkaline Phosphatase CK-MB (CK-2) CK-MB (CK-2) Rel Index Albumin TSH Urine WBC (Auto) Salicylates 01/10/17 01/10/17 01/10/17 07:47 10:50 13:41 WBC RBC Hgb Hct MCV MCH RDW Plt Count Lymph % (Auto) Lea % (Auto) Eos % (Auto) Seg Neutrophils % Seg Neuts % (Manual) Lymphocytes % (Manual) Seg Neutrophils # Seg Neutrophils # Man Lymphocytes # (Manual) APTT POC ABG pH ABG pH POC ABG pCO2 POC ABG pO2 ABG pO2 ABG HCO3 ABG Base Excess ABG Hemoglobin VBG pH Oxyhemoglobin Sodium Potassium Chloride Carbon Dioxide BUN Creatinine Glucose POC Glucose 148 H 165 H 114 H Lactic Acid Calcium AST Alkaline Phosphatase CK-MB (CK-2) CK-MB (CK-2) Rel Index Albumin TSH Urine WBC (Auto) Salicylates 01/10/17 01/10/17 01/10/17 20:20 21:39 23:24 WBC RBC Hgb Hct MCV MCH RDW Plt Count Lymph % (Auto) Lea % (Auto) Eos % (Auto) Seg Neutrophils % Seg Neuts % (Manual) Lymphocytes % (Manual) Seg Neutrophils # Seg Neutrophils # Man Lymphocytes # (Manual) APTT POC ABG pH ABG pH POC ABG pCO2 POC ABG pO2 ABG pO2 ABG HCO3 ABG Base Excess ABG Hemoglobin VBG pH Oxyhemoglobin Sodium Potassium Chloride Carbon Dioxide BUN Creatinine Glucose POC Glucose 150 H 175 H 155 H Lactic Acid Calcium AST Alkaline Phosphatase CK-MB (CK-2) CK-MB (CK-2) Rel Index Albumin TSH Urine WBC (Auto) Salicylates 01/11/17 01/11/17 01/11/17 00:19 04:06 05:20 WBC 15.2 H RBC 3.40 L Hgb 8.9 L Hct 26.3 L MCV 78 L MCH 26 L RDW 18.6 H Plt Count 462 H Lymph % (Auto) 13.2 L Lea % (Auto) Eos % (Auto) Seg Neutrophils % 80.8 H Seg Neuts % (Manual) Lymphocytes % (Manual) Seg Neutrophils # 12.3 H Seg Neutrophils # Man Lymphocytes # (Manual) APTT POC ABG pH 7.463 H ABG pH POC ABG pCO2 26.2 L POC ABG pO2 185 H ABG pO2 ABG HCO3 ABG Base Excess ABG Hemoglobin VBG pH Oxyhemoglobin Sodium Potassium Chloride Carbon Dioxide BUN Creatinine Glucose POC Glucose 163 H Lactic Acid Calcium AST Alkaline Phosphatase CK-MB (CK-2) CK-MB (CK-2) Rel Index Albumin TSH Urine WBC (Auto) Salicylates 01/11/17 01/11/1717 05:20 06:21 07:57 WBC RBC Hgb Hct MCV MCH RDW Plt Count Lymph % (Auto) Lea % (Auto) Eos % (Auto) Seg Neutrophils % Seg Neuts % (Manual) Lymphocytes % (Manual) Seg Neutrophils # Seg Neutrophils # Man Lymphocytes # (Manual) APTT POC ABG pH ABG pH POC ABG pCO2 POC ABG pO2 ABG pO2 ABG HCO3 ABG Base Excess ABG Hemoglobin VBG pH Oxyhemoglobin Sodium Potassium 3.4 L Chloride 111.5 H Carbon Dioxide 17 L BUN Creatinine Glucose 147 H POC Glucose 139 H 188 H Lactic Acid Calcium 8.0 L AST Alkaline Phosphatase CK-MB (CK-2) CK-MB (CK-2) Rel Index Albumin TSH Urine WBC (Auto) Salicylates 01/11/17 01/11/17 01/11/17 11:46 16:50 23:15 WBC RBC Hgb Hct MCV MCH RDW Plt Count Lymph % (Auto) Lea % (Auto) Eos % (Auto) Seg Neutrophils % Seg Neuts % (Manual) Lymphocytes % (Manual) Seg Neutrophils # Seg Neutrophils # Man Lymphocytes # (Manual) APTT POC ABG pH ABG pH POC ABG pCO2 POC ABG pO2 ABG pO2 ABG HCO3 ABG Base Excess ABG Hemoglobin VBG pH Oxyhemoglobin Sodium Potassium Chloride Carbon Dioxide BUN Creatinine Glucose POC Glucose 199 H 235 H 155 H Lactic Acid Calcium AST Alkaline Phosphatase CK-MB (CK-2) CK-MB (CK-2) Rel Index Albumin TSH Urine WBC (Auto) Salicylates 01/12/17 01/12/17 01/12/17 05:02 06:56 14:50 WBC RBC Hgb Hct MCV MCH RDW Plt Count Lymph % (Auto) Lea % (Auto) Eos % (Auto) Seg Neutrophils % Seg Neuts % (Manual) Lymphocytes % (Manual) Seg Neutrophils # Seg Neutrophils # Man Lymphocytes # (Manual) APTT POC ABG pH ABG pH POC ABG pCO2 28.0 L POC ABG pO2 178 H ABG pO2 ABG HCO3 ABG Base Excess ABG Hemoglobin VBG pH Oxyhemoglobin Sodium Potassium Chloride Carbon Dioxide BUN Creatinine Glucose POC Glucose 119 H 164 H Lactic Acid Calcium AST Alkaline Phosphatase CK-MB (CK-2) CK-MB (CK-2) Rel Index Albumin TSH Urine WBC (Auto) Salicylates 01/13/17 01/13/17 01/13/17 03:37 03:37 04:26 WBC RBC 3.61 L Hgb 9.3 L Hct 28.0 L MCV 78 L MCH 26 L RDW 18.2 H Plt Count Lymph % (Auto) Lea % (Auto) Eos % (Auto) Seg Neutrophils % Seg Neuts % (Manual) Lymphocytes % (Manual) Seg Neutrophils # Seg Neutrophils # Man Lymphocytes # (Manual) APTT POC ABG pH 7.485 H ABG pH POC ABG pCO2 25.4 L POC ABG pO2 73 L ABG pO2 ABG HCO3 ABG Base Excess ABG Hemoglobin VBG pH Oxyhemoglobin Sodium Potassium Chloride 112.4 H Carbon Dioxide 19 L BUN Creatinine Glucose 118 H POC Glucose Lactic Acid Calcium 8.0 L AST Alkaline Phosphatase CK-MB (CK-2) CK-MB (CK-2) Rel Index Albumin TSH Urine WBC (Auto) Salicylates 01/13/17 01/13/17 01/13/17 06:15 11:50 17:31 WBC RBC Hgb Hct MCV MCH RDW Plt Count Lymph % (Auto) Lea % (Auto) Eos % (Auto) Seg Neutrophils % Seg Neuts % (Manual) Lymphocytes % (Manual) Seg Neutrophils # Seg Neutrophils # Man Lymphocytes # (Manual) APTT POC ABG pH ABG pH POC ABG pCO2 POC ABG pO2 ABG pO2 ABG HCO3 ABG Base Excess ABG Hemoglobin VBG pH Oxyhemoglobin Sodium Potassium Chloride Carbon Dioxide BUN Creatinine Glucose POC Glucose 116 H 171 H 203 H Lactic Acid Calcium AST Alkaline Phosphatase CK-MB (CK-2) CK-MB (CK-2) Rel Index Albumin TSH Urine WBC (Auto) Salicylates 01/14/17 01/14/17 01/14/17 00:02 04:50 04:50 WBC RBC 3.32 L Hgb 8.5 L Hct 26.1 L MCV 79 L MCH 26 L RDW 18.2 H Plt Count Lymph % (Auto) Lea % (Auto) 9.0 H Eos % (Auto) Seg Neutrophils % Seg Neuts % (Manual) Lymphocytes % (Manual) Seg Neutrophils # Seg Neutrophils # Man Lymphocytes # (Manual) APTT POC ABG pH ABG pH POC ABG pCO2 POC ABG pO2 ABG pO2 ABG HCO3 ABG Base Excess ABG Hemoglobin VBG pH Oxyhemoglobin Sodium Potassium Chloride 112.5 H Carbon Dioxide BUN Creatinine Glucose 149 H POC Glucose 157 H Lactic Acid Calcium 8.1 L AST Alkaline Phosphatase CK-MB (CK-2) CK-MB (CK-2) Rel Index Albumin TSH Urine WBC (Auto) Salicylates 01/14/17 01/14/17 01/14/17 05:10 11:27 14:07 WBC RBC Hgb Hct MCV MCH RDW Plt Count Lymph % (Auto) Lea % (Auto) Eos % (Auto) Seg Neutrophils % Seg Neuts % (Manual) Lymphocytes % (Manual) Seg Neutrophils # Seg Neutrophils # Man Lymphocytes # (Manual) APTT POC ABG pH ABG pH POC ABG pCO2 POC ABG pO2 ABG pO2 ABG HCO3 ABG Base Excess ABG Hemoglobin VBG pH Oxyhemoglobin Sodium Potassium Chloride Carbon Dioxide BUN Creatinine Glucose POC Glucose 176 H 147 H Lactic Acid Calcium AST Alkaline Phosphatase CK-MB (CK-2) CK-MB (CK-2) Rel Index Albumin TSH Urine WBC (Auto) 53.0 H Salicylates 01/14/17 01/15/17 01/15/17 16:52 00:04 05:26 WBC RBC Hgb Hct MCV MCH RDW Plt Count Lymph % (Auto) Lea % (Auto) Eos % (Auto) Seg Neutrophils % Seg Neuts % (Manual) Lymphocytes % (Manual) Seg Neutrophils # Seg Neutrophils # Man Lymphocytes # (Manual) APTT POC ABG pH ABG pH POC ABG pCO2 POC ABG pO2 ABG pO2 ABG HCO3 ABG Base Excess ABG Hemoglobin VBG pH Oxyhemoglobin Sodium Potassium Chloride Carbon Dioxide BUN Creatinine Glucose POC Glucose 131 H 193 H 215 H Lactic Acid Calcium AST Alkaline Phosphatase CK-MB (CK-2) CK-MB (CK-2) Rel Index Albumin TSH Urine WBC (Auto) Salicylates 01/15/17 01/15/17 01/15/17 11:49 17:47 21:33 WBC RBC Hgb Hct MCV MCH RDW Plt Count Lymph % (Auto) Lea % (Auto) Eos % (Auto) Seg Neutrophils % Seg Neuts % (Manual) Lymphocytes % (Manual) Seg Neutrophils # Seg Neutrophils # Man Lymphocytes # (Manual) APTT POC ABG pH ABG pH POC ABG pCO2 POC ABG pO2 ABG pO2 ABG HCO3 ABG Base Excess ABG Hemoglobin VBG pH Oxyhemoglobin Sodium Potassium Chloride Carbon Dioxide BUN Creatinine Glucose POC Glucose 121 H 211 H 275 H Lactic Acid Calcium AST Alkaline Phosphatase CK-MB (CK-2) CK-MB (CK-2) Rel Index Albumin TSH Urine WBC (Auto) Salicylates 01/16/17 01/16/17 01/16/17 04:30 05:28 13:45 WBC RBC Hgb Hct MCV MCH RDW Plt Count Lymph % (Auto) Lea % (Auto) Eos % (Auto) Seg Neutrophils % Seg Neuts % (Manual) Lymphocytes % (Manual) Seg Neutrophils # Seg Neutrophils # Man Lymphocytes # (Manual) APTT POC ABG pH ABG pH 7.457 H POC ABG pCO2 POC ABG pO2 ABG pO2 55.1 L ABG HCO3 19.4 L ABG Base Excess -4.0 L ABG Hemoglobin 6.8 L VBG pH Oxyhemoglobin 94.9 L Sodium Potassium Chloride Carbon Dioxide BUN Creatinine Glucose POC Glucose 271 H 236 H Lactic Acid Calcium AST Alkaline Phosphatase CK-MB (CK-2) CK-MB (CK-2) Rel Index Albumin TSH Urine WBC (Auto) Salicylates 01/16/17 01/17/17 01/17/17 21:39 04:10 04:10 WBC 4.4 L RBC 2.98 L Hgb 7.7 L Hct 23.3 L MCV 78 L MCH 26 L RDW 18.1 H Plt Count Lymph % (Auto) Lea % (Auto) Eos % (Auto) Seg Neutrophils % Seg Neuts % (Manual) Lymphocytes % (Manual) Seg Neutrophils # Seg Neutrophils # Man Lymphocytes # (Manual) APTT POC ABG pH ABG pH POC ABG pCO2 POC ABG pO2 ABG pO2 ABG HCO3 ABG Base Excess ABG Hemoglobin VBG pH Oxyhemoglobin Sodium Potassium 3.3 L Chloride 108.7 H Carbon Dioxide 20 L BUN 8 L Creatinine Glucose 202 H POC Glucose 258 H Lactic Acid Calcium 7.6 L AST Alkaline Phosphatase CK-MB (CK-2) CK-MB (CK-2) Rel Index Albumin TSH Urine WBC (Auto) Salicylates 01/17/17 01/17/17 01/17/17 04:35 12:23 16:01 WBC RBC Hgb Hct MCV MCH RDW Plt Count Lymph % (Auto) Lea % (Auto) Eos % (Auto) Seg Neutrophils % Seg Neuts % (Manual) Lymphocytes % (Manual) Seg Neutrophils # Seg Neutrophils # Man Lymphocytes # (Manual) APTT POC ABG pH ABG pH POC ABG pCO2 POC ABG pO2 ABG pO2 160.3 H ABG HCO3 ABG Base Excess -2.3 L ABG Hemoglobin 7.9 L VBG pH Oxyhemoglobin Sodium Potassium Chloride Carbon Dioxide BUN Creatinine Glucose POC Glucose 321 H 239 H Lactic Acid Calcium AST Alkaline Phosphatase CK-MB (CK-2) CK-MB (CK-2) Rel Index Albumin TSH Urine WBC (Auto) Salicylates 01/18/17 01/18/17 01/18/17 05:07 12:09 17:54 WBC RBC Hgb Hct MCV MCH RDW Plt Count Lymph % (Auto) Lea % (Auto) Eos % (Auto) Seg Neutrophils % Seg Neuts % (Manual) Lymphocytes % (Manual) Seg Neutrophils # Seg Neutrophils # Man Lymphocytes # (Manual) APTT POC ABG pH ABG pH POC ABG pCO2 POC ABG pO2 ABG pO2 ABG HCO3 ABG Base Excess ABG Hemoglobin VBG pH Oxyhemoglobin Sodium Potassium Chloride Carbon Dioxide BUN Creatinine Glucose POC Glucose 155 H 203 H 132 H Lactic Acid Calcium AST Alkaline Phosphatase CK-MB (CK-2) CK-MB (CK-2) Rel Index Albumin TSH Urine WBC (Auto) Salicylates 01/18/17 01/19/17 01/19/17 23:43 04:28 12:11 WBC RBC Hgb Hct MCV MCH RDW Plt Count Lymph % (Auto) Lea % (Auto) Eos % (Auto) Seg Neutrophils % Seg Neuts % (Manual) Lymphocytes % (Manual) Seg Neutrophils # Seg Neutrophils # Man Lymphocytes # (Manual) APTT POC ABG pH ABG pH POC ABG pCO2 POC ABG pO2 ABG pO2 ABG HCO3 ABG Base Excess ABG Hemoglobin VBG pH Oxyhemoglobin Sodium Potassium Chloride Carbon Dioxide BUN Creatinine Glucose POC Glucose 125 H 182 H 153 H Lactic Acid Calcium AST Alkaline Phosphatase CK-MB (CK-2) CK-MB (CK-2) Rel Index Albumin TSH Urine WBC (Auto) Salicylates 01/19/17 01/20/17 01/20/17 17:23 00:12 05:44 WBC RBC Hgb Hct MCV MCH RDW Plt Count Lymph % (Auto) Lea % (Auto) Eos % (Auto) Seg Neutrophils % Seg Neuts % (Manual) Lymphocytes % (Manual) Seg Neutrophils # Seg Neutrophils # Man Lymphocytes # (Manual) APTT POC ABG pH ABG pH POC ABG pCO2 POC ABG pO2 ABG pO2 ABG HCO3 ABG Base Excess ABG Hemoglobin VBG pH Oxyhemoglobin Sodium Potassium Chloride Carbon Dioxide BUN Creatinine Glucose POC Glucose 66 L 139 H 176 H Lactic Acid Calcium AST Alkaline Phosphatase CK-MB (CK-2) CK-MB (CK-2) Rel Index Albumin TSH Urine WBC (Auto) Salicylates 01/20/17 01/20/17 01/20/17 11:48 17:42 23:43 WBC RBC Hgb Hct MCV MCH RDW Plt Count Lymph % (Auto) Lea % (Auto) Eos % (Auto) Seg Neutrophils % Seg Neuts % (Manual) Lymphocytes % (Manual) Seg Neutrophils # Seg Neutrophils # Man Lymphocytes # (Manual) APTT POC ABG pH ABG pH POC ABG pCO2 POC ABG pO2 ABG pO2 ABG HCO3 ABG Base Excess ABG Hemoglobin VBG pH Oxyhemoglobin Sodium Potassium Chloride Carbon Dioxide BUN Creatinine Glucose POC Glucose 218 H 132 H 178 H Lactic Acid Calcium AST Alkaline Phosphatase CK-MB (CK-2) CK-MB (CK-2) Rel Index Albumin TSH Urine WBC (Auto) Salicylates 01/21/17 01/21/17 01/21/17 05:34 11:17 23:37 WBC RBC Hgb Hct MCV MCH RDW Plt Count Lymph % (Auto) [place]a % (Auto) Eos % (Auto) Seg Neutrophils % Seg Neuts % (Manual) Lymphocytes % (Manual) Seg Neutrophils # Seg Neutrophils # Man Lymphocytes # (Manual) APTT POC ABG pH ABG pH POC ABG pCO2 POC ABG pO2 ABG pO2 ABG HCO3 ABG Base Excess ABG Hemoglobin VBG pH Oxyhemoglobin Sodium Potassium Chloride Carbon Dioxide BUN Creatinine Glucose POC Glucose 106 H 213 H 140 H Lactic Acid Calcium AST Alkaline Phosphatase CK-MB (CK-2) CK-MB (CK-2) Rel Index Albumin TSH Urine WBC (Auto) Salicylates 01/22/17 01/22/17 01/22/17 04:00 04:00 04:58 WBC RBC 3.26 L Hgb 8.3 L Hct 25.5 L MCV 78 L MCH 25 L RDW 17.9 H Plt Count Lymph % (Auto) Lea % (Auto) 7.9 H Eos % (Auto) 6.2 H Seg Neutrophils % Seg Neuts % (Manual) Lymphocytes % (Manual) Seg Neutrophils # Seg Neutrophils # Man Lymphocytes # (Manual) APTT POC ABG pH ABG pH POC ABG pCO2 POC ABG pO2 ABG pO2 ABG HCO3 ABG Base Excess ABG Hemoglobin VBG pH Oxyhemoglobin Sodium Potassium Chloride 95.5 L Carbon Dioxide 31 H D BUN Creatinine Glucose 134 H POC Glucose 146 H Lactic Acid Calcium AST 44 H Alkaline Phosphatase 379 H CK-MB (CK-2) CK-MB (CK-2) Rel Index Albumin 2.7 L TSH Urine WBC (Auto) Salicylates 01/22/17 01/22/17 01/22/17 12:12 18:12 23:39 WBC RBC Hgb Hct MCV MCH RDW Plt Count Lymph % (Auto) Lea % (Auto) Eos % (Auto) Seg Neutrophils % Seg Neuts % (Manual) Lymphocytes % (Manual) Seg Neutrophils # Seg Neutrophils # Man Lymphocytes # (Manual) APTT POC ABG pH ABG pH POC ABG pCO2 POC ABG pO2 ABG pO2 ABG HCO3 ABG Base Excess ABG Hemoglobin VBG pH Oxyhemoglobin Sodium Potassium Chloride Carbon Dioxide BUN Creatinine Glucose POC Glucose 255 H 182 H 134 H Lactic Acid Calcium AST Alkaline Phosphatase CK-MB (CK-2) CK-MB (CK-2) Rel Index Albumin TSH Urine WBC (Auto) Salicylates 01/23/17 01/23/17 01/23/17 04:43 12:12 17:36 WBC RBC Hgb Hct MCV MCH RDW Plt Count Lymph % (Auto) Lea % (Auto) Eos % (Auto) Seg Neutrophils % Seg Neuts % (Manual) Lymphocytes % (Manual) Seg Neutrophils # Seg Neutrophils # Man Lymphocytes # (Manual) APTT POC ABG pH ABG pH POC ABG pCO2 POC ABG pO2 ABG pO2 ABG HCO3 ABG Base Excess ABG Hemoglobin VBG pH Oxyhemoglobin Sodium Potassium Chloride Carbon Dioxide BUN Creatinine Glucose POC Glucose 218 H 128 H 156 H Lactic Acid Calcium AST Alkaline Phosphatase CK-MB (CK-2) CK-MB (CK-2) Rel Index Albumin TSH Urine WBC (Auto) Salicylates 01/24/17 01/24/17 01/24/17 00:08 05:16 11:40 WBC RBC Hgb Hct MCV MCH RDW Plt Count Lymph % (Auto) [place] % (Auto) Eos % (Auto) Seg Neutrophils % Seg Neuts % (Manual) Lymphocytes % (Manual) Seg Neutrophils # Seg Neutrophils # Man Lymphocytes # (Manual) APTT POC ABG pH ABG pH POC ABG pCO2 POC ABG pO2 ABG pO2 ABG HCO3 ABG Base Excess ABG Hemoglobin VBG pH Oxyhemoglobin Sodium Potassium Chloride Carbon Dioxide BUN Creatinine Glucose POC Glucose 129 H 169 H 187 H Lactic Acid Calcium AST Alkaline Phosphatase CK-MB (CK-2) CK-MB (CK-2) Rel Index Albumin TSH Urine WBC (Auto) Salicylates 01/24/17 01/24/17 01/25/17 17:43 23:23 04:56 WBC RBC Hgb Hct MCV MCH RDW Plt Count Lymph % (Auto) Lea % (Auto) Eos % (Auto) Seg Neutrophils % Seg Neuts % (Manual) Lymphocytes % (Manual) Seg Neutrophils # Seg Neutrophils # Man Lymphocytes # (Manual) APTT POC ABG pH ABG pH POC ABG pCO2 POC ABG pO2 ABG pO2 ABG HCO3 ABG Base Excess ABG Hemoglobin VBG pH Oxyhemoglobin Sodium Potassium Chloride Carbon Dioxide BUN Creatinine Glucose POC Glucose 215 H 222 H 210 H Lactic Acid Calcium AST Alkaline Phosphatase CK-MB (CK-2) CK-MB (CK-2) Rel Index Albumin TSH Urine WBC (Auto) Salicylates 01/25/17 01/25/17 01/26/17 11:52 17:37 00:02 WBC RBC Hgb Hct MCV MCH RDW Plt Count Lymph % (Auto) Lea % (Auto) Eos % (Auto) Seg Neutrophils % Seg Neuts % (Manual) Lymphocytes % (Manual) Seg Neutrophils # Seg Neutrophils # Man Lymphocytes # (Manual) APTT POC ABG pH ABG pH POC ABG pCO2 POC ABG pO2 ABG pO2 ABG HCO3 ABG Base Excess ABG Hemoglobin VBG pH Oxyhemoglobin Sodium Potassium Chloride Carbon Dioxide BUN Creatinine Glucose POC Glucose 284 H 218 H 192 H Lactic Acid Calcium AST Alkaline Phosphatase CK-MB (CK-2) CK-MB (CK-2) Rel Index Albumin TSH Urine WBC (Auto) Salicylates 01/26/17 01/26/17 01/26/17 05:33 12:17 17:50 WBC RBC Hgb Hct MCV MCH RDW Plt Count Lymph % (Auto) [place] % (Auto) Eos % (Auto) Seg Neutrophils % Seg Neuts % (Manual) Lymphocytes % (Manual) Seg Neutrophils # Seg Neutrophils # Man Lymphocytes # (Manual) APTT POC ABG pH ABG pH POC ABG pCO2 POC ABG pO2 ABG pO2 ABG HCO3 ABG Base Excess ABG Hemoglobin VBG pH Oxyhemoglobin Sodium Potassium Chloride Carbon Dioxide BUN Creatinine Glucose POC Glucose 199 H 227 H 229 H Lactic Acid Calcium AST Alkaline Phosphatase CK-MB (CK-2) CK-MB (CK-2) Rel Index Albumin TSH Urine WBC (Auto) Salicylates 01/26/17 01/27/17 01/27/17 23:57 05:31 11:42 WBC RBC Hgb Hct MCV MCH RDW Plt Count Lymph % (Auto) [place] % (Auto) Eos % (Auto) Seg Neutrophils % Seg Neuts % (Manual) Lymphocytes % (Manual) Seg Neutrophils # Seg Neutrophils # Man Lymphocytes # (Manual) APTT POC ABG pH ABG pH POC ABG pCO2 POC ABG pO2 ABG pO2 ABG HCO3 ABG Base Excess ABG Hemoglobin VBG pH Oxyhemoglobin Sodium Potassium Chloride Carbon Dioxide BUN Creatinine Glucose POC Glucose 186 H 285 H 260 H Lactic Acid Calcium AST Alkaline Phosphatase CK-MB (CK-2) CK-MB (CK-2) Rel Index Albumin TSH Urine WBC (Auto) Salicylates 01/27/17 01/27/17 01/27/17 17:47 23:58 Unknown WBC 12.1 H RBC 3.28 L Hgb 8.5 L Hct 25.5 L MCV 78 L MCH 26 L RDW 16.8 H Plt Count 601 H Lymph % (Auto) [place] % (Auto) Eos % (Auto) Seg Neutrophils % Seg Neuts % (Manual) Lymphocytes % (Manual) Seg Neutrophils # Seg Neutrophils # Man Lymphocytes # (Manual) APTT POC ABG pH ABG pH POC ABG pCO2 POC ABG pO2 ABG pO2 ABG HCO3 ABG Base Excess ABG Hemoglobin VBG pH Oxyhemoglobin Sodium Potassium Chloride Carbon Dioxide BUN Creatinine Glucose POC Glucose 329 H 225 H Lactic Acid Calcium AST Alkaline Phosphatase CK-MB (CK-2) CK-MB (CK-2) Rel Index Albumin TSH Urine WBC (Auto) Salicylates 01/27/17 01/28/17 01/28/17 Unknown 03:44 03:44 WBC RBC 3.14 L Hgb 8.2 L Hct 24.1 L MCV 77 L MCH 26 L RDW 16.9 H Plt Count 567 H Lymph % (Auto) [place] % (Auto) Eos % (Auto) Seg Neutrophils % Seg Neuts % (Manual) Lymphocytes % (Manual) Seg Neutrophils # Seg Neutrophils # Man Lymphocytes # (Manual) APTT POC ABG pH ABG pH POC ABG pCO2 POC ABG pO2 ABG pO2 ABG HCO3 ABG Base Excess ABG Hemoglobin VBG pH Oxyhemoglobin Sodium 128 L Potassium 5.4 H Chloride 87.5 L Carbon Dioxide BUN 44 H 42 H Creatinine Glucose 250 H 128 H POC Glucose Lactic Acid Calcium AST Alkaline Phosphatase CK-MB (CK-2) CK-MB (CK-2) Rel Index Albumin TSH Urine WBC (Auto) Salicylates 01/28/17 01/28/17 01/28/17 11:43 16:47 17:52 WBC RBC Hgb Hct MCV MCH RDW Plt Count Lymph % (Auto) [place] % (Auto) Eos % (Auto) Seg Neutrophils % Seg Neuts % (Manual) Lymphocytes % (Manual) Seg Neutrophils # Seg Neutrophils # Man Lymphocytes # (Manual) APTT POC ABG pH ABG pH POC ABG pCO2 POC ABG pO2 ABG pO2 ABG HCO3 ABG Base Excess ABG Hemoglobin VBG pH Oxyhemoglobin Sodium Potassium Chloride Carbon Dioxide BUN Creatinine Glucose POC Glucose 351 H 249 H Lactic Acid Calcium AST Alkaline Phosphatase CK-MB (CK-2) CK-MB (CK-2) Rel Index Albumin TSH Urine WBC (Auto) > 182.0 H Salicylates 01/29/17 01/29/17 01/29/17 05:25 05:25 09:32 WBC 13.6 H RBC 3.25 L Hgb 8.3 L Hct 25.1 L MCV 77 L MCH 26 L RDW 16.8 H Plt Count 514 H Lymph % (Auto) [place] % (Auto) Eos % (Auto) Seg Neutrophils % Seg Neuts % (Manual) Lymphocytes % (Manual) Seg Neutrophils # Seg Neutrophils # Man Lymphocytes # (Manual) APTT POC ABG pH ABG pH POC ABG pCO2 POC ABG pO2 ABG pO2 ABG HCO3 ABG Base Excess ABG Hemoglobin VBG pH Oxyhemoglobin Sodium Potassium Chloride 97.8 L Carbon Dioxide BUN 34 H Creatinine Glucose 222 H POC Glucose Lactic Acid 2.50 H* Calcium AST Alkaline Phosphatase CK-MB (CK-2) CK-MB (CK-2) Rel Index Albumin TSH Urine WBC (Auto) Salicylates 01/29/17 01/29/17 01/29/17 11:56 18:11 23:55 WBC RBC Hgb Hct MCV MCH RDW Plt Count Lymph % (Auto) [place] % (Auto) Eos % (Auto) Seg Neutrophils % Seg Neuts % (Manual) Lymphocytes % (Manual) Seg Neutrophils # Seg Neutrophils # Man Lymphocytes # (Manual) APTT POC ABG pH ABG pH POC ABG pCO2 POC ABG pO2 ABG pO2 ABG HCO3 ABG Base Excess ABG Hemoglobin VBG pH Oxyhemoglobin Sodium Potassium Chloride Carbon Dioxide BUN Creatinine Glucose POC Glucose 261 H 215 H 176 H Lactic Acid Calcium AST Alkaline Phosphatase CK-MB (CK-2) CK-MB (CK-2) Rel Index Albumin TSH Urine WBC (Auto) Salicylates 01/30/17 01/30/17 01/30/17 05:31 05:31 05:34 WBC 15.2 H RBC 3.09 L Hgb 7.9 L Hct 23.9 L MCV 77 L MCH 26 L RDW 16.9 H Plt Count 569 H Lymph % (Auto) [place] % (Auto) Eos % (Auto) Seg Neutrophils % Seg Neuts % (Manual) Lymphocytes % (Manual) Seg Neutrophils # Seg Neutrophils # Man Lymphocytes # (Manual) APTT POC ABG pH ABG pH POC ABG pCO2 POC ABG pO2 ABG pO2 ABG HCO3 ABG Base Excess ABG Hemoglobin VBG pH Oxyhemoglobin Sodium Potassium Chloride Carbon Dioxide BUN 24 H Creatinine Glucose 235 H POC Glucose 243 H Lactic Acid Calcium AST Alkaline Phosphatase CK-MB (CK-2) CK-MB (CK-2) Rel Index Albumin TSH Urine WBC (Auto) Salicylates 01/30/17 01/30/17 01/30/17 11:38 17:58 23:29 WBC RBC Hgb Hct MCV MCH RDW Plt Count Lymph % (Auto) [place] % (Auto) Eos % (Auto) Seg Neutrophils % Seg Neuts % (Manual) Lymphocytes % (Manual) Seg Neutrophils # Seg Neutrophils # Man Lymphocytes # (Manual) APTT POC ABG pH ABG pH POC ABG pCO2 POC ABG pO2 ABG pO2 ABG HCO3 ABG Base Excess ABG Hemoglobin VBG pH Oxyhemoglobin Sodium Potassium Chloride Carbon Dioxide BUN Creatinine Glucose POC Glucose 298 H 208 H 245 H Lactic Acid Calcium AST Alkaline Phosphatase CK-MB (CK-2) CK-MB (CK-2) Rel Index Albumin TSH Urine WBC (Auto) Salicylates 01/31/17 01/31/17 01/31/17 04:39 04:39 05:57 WBC 11.4 H RBC 3.22 L Hgb 8.2 L Hct 24.9 L MCV 78 L MCH 25 L RDW 17.2 H Plt Count 576 H Lymph % (Auto) [place] % (Auto) Eos % (Auto) Seg Neutrophils % Seg Neuts % (Manual) Lymphocytes % (Manual) Seg Neutrophils # Seg Neutrophils # Man Lymphocytes # (Manual) APTT POC ABG pH ABG pH POC ABG pCO2 POC ABG pO2 ABG pO2 ABG HCO3 ABG Base Excess ABG Hemoglobin VBG pH Oxyhemoglobin Sodium Potassium Chloride Carbon Dioxide BUN Creatinine 0.7 L Glucose 223 H POC Glucose 264 H Lactic Acid Calcium AST Alkaline Phosphatase CK-MB (CK-2) CK-MB (CK-2) Rel Index Albumin TSH Urine WBC (Auto) Salicylates 01/31/17 01/31/17 01/31/17 12:23 17:41 18:55 WBC RBC Hgb Hct MCV MCH RDW Plt Count Lymph % (Auto) [place] % (Auto) Eos % (Auto) Seg Neutrophils % Seg Neuts % (Manual) Lymphocytes % (Manual) Seg Neutrophils # Seg Neutrophils # Man Lymphocytes # (Manual) APTT POC ABG pH ABG pH POC ABG pCO2 32.8 L POC ABG pO2 ABG pO2 ABG HCO3 ABG Base Excess ABG Hemoglobin VBG pH Oxyhemoglobin Sodium Potassium Chloride Carbon Dioxide BUN Creatinine Glucose POC Glucose 252 H 208 H Lactic Acid Calcium AST Alkaline Phosphatase CK-MB (CK-2) CK-MB (CK-2) Rel Index Albumin TSH Urine WBC (Auto) Salicylates 01/31/17 02/01/17 02/01/17 22:59 03:38 03:38 WBC RBC 2.81 L Hgb 7.4 L Hct 22.1 L MCV 79 L MCH 27 L RDW 17.0 H Plt Count 540 H Lymph % (Auto) [place] % (Auto) Eos % (Auto) Seg Neutrophils % Seg Neuts % (Manual) Lymphocytes % (Manual) Seg Neutrophils # Seg Neutrophils # Man Lymphocytes # (Manual) APTT POC ABG pH ABG pH POC ABG pCO2 POC ABG pO2 ABG pO2 ABG HCO3 ABG Base Excess ABG Hemoglobin VBG pH Oxyhemoglobin Sodium Potassium Chloride Carbon Dioxide 21 L BUN Creatinine 0.7 L Glucose POC Glucose 40 L Lactic Acid Calcium AST Alkaline Phosphatase CK-MB (CK-2) CK-MB (CK-2) Rel Index Albumin TSH Urine WBC (Auto) Salicylates 02/01/17 02/01/17 02/01/17 05:17 12:19 16:44 WBC RBC Hgb Hct MCV MCH RDW Plt Count Lymph % (Auto) [place] % (Auto) Eos % (Auto) Seg Neutrophils % Seg Neuts % (Manual) Lymphocytes % (Manual) Seg Neutrophils # Seg Neutrophils # Man Lymphocytes # (Manual) APTT POC ABG pH ABG pH POC ABG pCO2 POC ABG pO2 ABG pO2 ABG HCO3 ABG Base Excess ABG Hemoglobin VBG pH Oxyhemoglobin Sodium Potassium Chloride Carbon Dioxide BUN Creatinine Glucose POC Glucose 140 H 213 H 172 H Lactic Acid Calcium AST Alkaline Phosphatase CK-MB (CK-2) CK-MB (CK-2) Rel Index Albumin TSH Urine WBC (Auto) Salicylates 02/01/17 02/02/17 02/02/17 23:59 05:14 11:24 WBC RBC Hgb Hct MCV MCH RDW Plt Count Lymph % (Auto) [place] % (Auto) Eos % (Auto) Seg Neutrophils % Seg Neuts % (Manual) Lymphocytes % (Manual) Seg Neutrophils # Seg Neutrophils # Man Lymphocytes # (Manual) APTT POC ABG pH ABG pH POC ABG pCO2 POC ABG pO2 ABG pO2 ABG HCO3 ABG Base Excess ABG Hemoglobin VBG pH Oxyhemoglobin Sodium Potassium Chloride Carbon Dioxide BUN Creatinine Glucose POC Glucose 181 H 194 H 209 H Lactic Acid Calcium AST Alkaline Phosphatase CK-MB (CK-2) CK-MB (CK-2) Rel Index Albumin TSH Urine WBC (Auto) Salicylates 02/02/17 02/02/17 02/02/17 11:46 11:46 17:47 WBC RBC 2.94 L Hgb 7.5 L Hct 23.0 L MCV 78 L MCH 25 L RDW 16.9 H Plt Count 520 H Lymph % (Auto) [place] % (Auto) Eos % (Auto) Seg Neutrophils % Seg Neuts % (Manual) Lymphocytes % (Manual) Seg Neutrophils # Seg Neutrophils # Man Lymphocytes # (Manual) APTT POC ABG pH ABG pH POC ABG pCO2 POC ABG pO2 ABG pO2 ABG HCO3 ABG Base Excess ABG Hemoglobin VBG pH Oxyhemoglobin Sodium Potassium Chloride Carbon Dioxide BUN Creatinine 0.6 L Glucose 189 H POC Glucose 147 H Lactic Acid Calcium 8.1 L AST Alkaline Phosphatase CK-MB (CK-2) CK-MB (CK-2) Rel Index Albumin TSH Urine WBC (Auto) Salicylates 02/02/17 02/03/17 02/03/17 23:32 05:53 11:19 WBC RBC Hgb Hct MCV MCH RDW Plt Count Lymph % (Auto) [place] % (Auto) Eos % (Auto) Seg Neutrophils % Seg Neuts % (Manual) Lymphocytes % (Manual) Seg Neutrophils # Seg Neutrophils # Man Lymphocytes # (Manual) APTT POC ABG pH ABG pH POC ABG pCO2 POC ABG pO2 ABG pO2 ABG HCO3 ABG Base Excess ABG Hemoglobin VBG pH Oxyhemoglobin Sodium Potassium Chloride Carbon Dioxide BUN Creatinine Glucose POC Glucose 176 H 224 H 228 H Lactic Acid Calcium AST Alkaline Phosphatase CK-MB (CK-2) CK-MB (CK-2) Rel Index Albumin TSH Urine WBC (Auto) Salicylates 02/03/17 02/03/17 02/04/17 16:59 23:38 05:45 WBC RBC Hgb Hct MCV MCH RDW Plt Count Lymph % (Auto) [place] % (Auto) Eos % (Auto) Seg Neutrophils % Seg Neuts % (Manual) Lymphocytes % (Manual) Seg Neutrophils # Seg Neutrophils # Man Lymphocytes # (Manual) APTT POC ABG pH ABG pH POC ABG pCO2 POC ABG pO2 ABG pO2 ABG HCO3 ABG Base Excess ABG Hemoglobin VBG pH Oxyhemoglobin Sodium Potassium Chloride Carbon Dioxide BUN Creatinine Glucose POC Glucose 189 H 191 H 251 H Lactic Acid Calcium AST Alkaline Phosphatase CK-MB (CK-2) CK-MB (CK-2) Rel Index Albumin TSH Urine WBC (Auto) Salicylates 02/04/17 02/04/17 02/05/17 11:20 17:20 00:17 WBC RBC Hgb Hct MCV MCH RDW Plt Count Lymph % (Auto) [place] % (Auto) Eos % (Auto) Seg Neutrophils % Seg Neuts % (Manual) Lymphocytes % (Manual) Seg Neutrophils # Seg Neutrophils # Man Lymphocytes # (Manual) APTT POC ABG pH ABG pH POC ABG pCO2 POC ABG pO2 ABG pO2 ABG HCO3 ABG Base Excess ABG Hemoglobin VBG pH Oxyhemoglobin Sodium Potassium Chloride Carbon Dioxide BUN Creatinine Glucose POC Glucose 243 H 163 H 200 H Lactic Acid Calcium AST Alkaline Phosphatase CK-MB (CK-2) CK-MB (CK-2) Rel Index Albumin TSH Urine WBC (Auto) Salicylates 02/05/17 02/05/17 02/05/17 05:38 12:38 16:29 WBC RBC Hgb Hct MCV MCH RDW Plt Count Lymph % (Auto) [place] % (Auto) Eos % (Auto) Seg Neutrophils % Seg Neuts % (Manual) Lymphocytes % (Manual) Seg Neutrophils # Seg Neutrophils # Man Lymphocytes # (Manual) APTT POC ABG pH ABG pH POC ABG pCO2 POC ABG pO2 ABG pO2 ABG HCO3 ABG Base Excess ABG Hemoglobin VBG pH Oxyhemoglobin Sodium Potassium Chloride Carbon Dioxide BUN Creatinine Glucose POC Glucose 248 H 241 H 257 H Lactic Acid Calcium AST Alkaline Phosphatase CK-MB (CK-2) CK-MB (CK-2) Rel Index Albumin TSH Urine WBC (Auto) Salicylates 02/05/17 02/06/17 02/06/17 23:56 05:30 11:50 WBC RBC Hgb Hct MCV MCH RDW Plt Count Lymph % (Auto) [place] % (Auto) Eos % (Auto) Seg Neutrophils % Seg Neuts % (Manual) Lymphocytes % (Manual) Seg Neutrophils # Seg Neutrophils # Man Lymphocytes # (Manual) APTT POC ABG pH ABG pH POC ABG pCO2 POC ABG pO2 ABG pO2 ABG HCO3 ABG Base Excess ABG Hemoglobin VBG pH Oxyhemoglobin Sodium Potassium Chloride Carbon Dioxide BUN Creatinine Glucose POC Glucose 258 H 120 H 254 H Lactic Acid Calcium AST Alkaline Phosphatase CK-MB (CK-2) CK-MB (CK-2) Rel Index Albumin TSH Urine WBC (Auto) Salicylates 02/06/17 02/06/17 02/07/17 17:11 23:50 05:22 WBC RBC Hgb Hct MCV MCH RDW Plt Count Lymph % (Auto) [place] % (Auto) Eos % (Auto) Seg Neutrophils % Seg Neuts % (Manual) Lymphocytes % (Manual) Seg Neutrophils # Seg Neutrophils # Man Lymphocytes # (Manual) APTT POC ABG pH ABG pH POC ABG pCO2 POC ABG pO2 ABG pO2 ABG HCO3 ABG Base Excess ABG Hemoglobin VBG pH Oxyhemoglobin Sodium Potassium Chloride Carbon Dioxide BUN Creatinine Glucose POC Glucose 149 H 240 H 258 H Lactic Acid Calcium AST Alkaline Phosphatase CK-MB (CK-2) CK-MB (CK-2) Rel Index Albumin TSH Urine WBC (Auto) Salicylates 02/07/17 02/07/17 02/07/17 11:15 18:33 23:59 WBC RBC Hgb Hct MCV MCH RDW Plt Count Lymph % (Auto) [place] % (Auto) Eos % (Auto) Seg Neutrophils % Seg Neuts % (Manual) Lymphocytes % (Manual) Seg Neutrophils # Seg Neutrophils # Man Lymphocytes # (Manual) APTT POC ABG pH ABG pH POC ABG pCO2 POC ABG pO2 ABG pO2 ABG HCO3 ABG Base Excess ABG Hemoglobin VBG pH Oxyhemoglobin Sodium Potassium Chloride Carbon Dioxide BUN Creatinine Glucose POC Glucose 239 H 176 H 186 H Lactic Acid Calcium AST Alkaline Phosphatase CK-MB (CK-2) CK-MB (CK-2) Rel Index Albumin TSH Urine WBC (Auto) Salicylates 02/08/17 02/08/17 02/08/17 06:15 11:55 16:55 WBC RBC Hgb Hct MCV MCH RDW Plt Count Lymph % (Auto) [place] % (Auto) Eos % (Auto) Seg Neutrophils % Seg Neuts % (Manual) Lymphocytes % (Manual) Seg Neutrophils # Seg Neutrophils # Man Lymphocytes # (Manual) APTT POC ABG pH ABG pH POC ABG pCO2 POC ABG pO2 ABG pO2 ABG HCO3 ABG Base Excess ABG Hemoglobin VBG pH Oxyhemoglobin Sodium Potassium Chloride Carbon Dioxide BUN Creatinine Glucose POC Glucose 195 H 129 H 246 H Lactic Acid Calcium AST Alkaline Phosphatase CK-MB (CK-2) CK-MB (CK-2) Rel Index Albumin TSH Urine WBC (Auto) Salicylates 02/08/17 02/09/17 02/09/17 23:51 05:51 07:24 WBC 14.7 H RBC 3.39 L Hgb 8.9 L Hct 26.4 L MCV 78 L MCH 26 L RDW 18.4 H Plt Count 670 H Lymph % (Auto) 11.8 L [place] % (Auto) Eos % (Auto) Seg Neutrophils % 81.2 H Seg Neuts % (Manual) Lymphocytes % (Manual) Seg Neutrophils # 11.9 H Seg Neutrophils # Man Lymphocytes # (Manual) APTT POC ABG pH ABG pH POC ABG pCO2 POC ABG pO2 ABG pO2 ABG HCO3 ABG Base Excess ABG Hemoglobin VBG pH Oxyhemoglobin Sodium Potassium Chloride Carbon Dioxide BUN Creatinine Glucose POC Glucose 262 H 295 H Lactic Acid Calcium AST Alkaline Phosphatase CK-MB (CK-2) CK-MB (CK-2) Rel Index Albumin TSH Urine WBC (Auto) Salicylates 02/09/17 02/09/17 02/09/17 07:24 12:08 18:39 WBC RBC Hgb Hct MCV MCH RDW Plt Count Lymph % (Auto) [place] % (Auto) Eos % (Auto) Seg Neutrophils % Seg Neuts % (Manual) Lymphocytes % (Manual) Seg Neutrophils # Seg Neutrophils # Man Lymphocytes # (Manual) APTT POC ABG pH ABG pH POC ABG pCO2 POC ABG pO2 ABG pO2 ABG HCO3 ABG Base Excess ABG Hemoglobin VBG pH Oxyhemoglobin Sodium Potassium Chloride 95.5 L Carbon Dioxide BUN 52 H Creatinine Glucose 277 H POC Glucose 236 H 151 H Lactic Acid Calcium AST Alkaline Phosphatase CK-MB (CK-2) CK-MB (CK-2) Rel Index Albumin TSH Urine WBC (Auto) Salicylates 02/10/17 02/10/17 02/10/17 00:01 05:44 11:21 WBC RBC Hgb Hct MCV MCH RDW Plt Count Lymph % (Auto) [place] % (Auto) Eos % (Auto) Seg Neutrophils % Seg Neuts % (Manual) Lymphocytes % (Manual) Seg Neutrophils # Seg Neutrophils # Man Lymphocytes # (Manual) APTT POC ABG pH ABG pH POC ABG pCO2 POC ABG pO2 ABG pO2 ABG HCO3 ABG Base Excess ABG Hemoglobin VBG pH Oxyhemoglobin Sodium Potassium Chloride Carbon Dioxide BUN Creatinine Glucose POC Glucose 210 H 201 H 233 H Lactic Acid Calcium AST Alkaline Phosphatase CK-MB (CK-2) CK-MB (CK-2) Rel Index Albumin TSH Urine WBC (Auto) Salicylates 02/10/17 02/10/17 02/11/17 17:29 23:56 05:24 WBC RBC Hgb Hct MCV MCH RDW Plt Count Lymph % (Auto) [place] % (Auto) Eos % (Auto) Seg Neutrophils % Seg Neuts % (Manual) Lymphocytes % (Manual) Seg Neutrophils # Seg Neutrophils # Man Lymphocytes # (Manual) APTT POC ABG pH ABG pH POC ABG pCO2 POC ABG pO2 ABG pO2 ABG HCO3 ABG Base Excess ABG Hemoglobin VBG pH Oxyhemoglobin Sodium Potassium Chloride Carbon Dioxide BUN Creatinine Glucose POC Glucose 167 H 191 H 135 H Lactic Acid Calcium AST Alkaline Phosphatase CK-MB (CK-2) CK-MB (CK-2) Rel Index Albumin TSH Urine WBC (Auto) Salicylates 02/11/17 02/11/17 02/11/17 12:25 17:03 23:59 WBC RBC Hgb Hct MCV MCH RDW Plt Count Lymph % (Auto) [place] % (Auto) Eos % (Auto) Seg Neutrophils % Seg Neuts % (Manual) Lymphocytes % (Manual) Seg Neutrophils # Seg Neutrophils # Man Lymphocytes # (Manual) APTT POC ABG pH ABG pH POC ABG pCO2 POC ABG pO2 ABG pO2 ABG HCO3 ABG Base Excess ABG Hemoglobin VBG pH Oxyhemoglobin Sodium Potassium Chloride Carbon Dioxide BUN Creatinine Glucose POC Glucose 275 H 172 H 215 H Lactic Acid Calcium AST Alkaline Phosphatase CK-MB (CK-2) CK-MB (CK-2) Rel Index Albumin TSH Urine WBC (Auto) Salicylates 02/12/17 02/12/17 02/12/17 05:39 11:33 17:55 WBC RBC Hgb Hct MCV MCH RDW Plt Count Lymph % (Auto) [place] % (Auto) Eos % (Auto) Seg Neutrophils % Seg Neuts % (Manual) Lymphocytes % (Manual) Seg Neutrophils # Seg Neutrophils # Man Lymphocytes # (Manual) APTT POC ABG pH ABG pH POC ABG pCO2 POC ABG pO2 ABG pO2 ABG HCO3 ABG Base Excess ABG Hemoglobin VBG pH Oxyhemoglobin Sodium Potassium Chloride Carbon Dioxide BUN Creatinine Glucose POC Glucose 261 H 217 H 172 H Lactic Acid Calcium AST Alkaline Phosphatase CK-MB (CK-2) CK-MB (CK-2) Rel Index Albumin TSH Urine WBC (Auto) Salicylates 02/13/17 02/13/17 02/13/17 00:25 06:46 11:26 WBC RBC Hgb Hct MCV MCH RDW Plt Count Lymph % (Auto) [place] % (Auto) Eos % (Auto) Seg Neutrophils % Seg Neuts % (Manual) Lymphocytes % (Manual) Seg Neutrophils # Seg Neutrophils # Man Lymphocytes # (Manual) APTT POC ABG pH ABG pH POC ABG pCO2 POC ABG pO2 ABG pO2 ABG HCO3 ABG Base Excess ABG Hemoglobin VBG pH Oxyhemoglobin Sodium Potassium Chloride Carbon Dioxide BUN Creatinine Glucose POC Glucose 207 H 219 H 231 H Lactic Acid Calcium AST Alkaline Phosphatase CK-MB (CK-2) CK-MB (CK-2) Rel Index Albumin TSH Urine WBC (Auto) Salicylates 02/13/17 02/13/17 02/14/17 17:12 23:44 05:44 WBC RBC Hgb Hct MCV MCH RDW Plt Count Lymph % (Auto) [place] % (Auto) Eos % (Auto) Seg Neutrophils % Seg Neuts % (Manual) Lymphocytes % (Manual) Seg Neutrophils # Seg Neutrophils # Man Lymphocytes # (Manual) APTT POC ABG pH ABG pH POC ABG pCO2 POC ABG pO2 ABG pO2 ABG HCO3 ABG Base Excess ABG Hemoglobin VBG pH Oxyhemoglobin Sodium Potassium Chloride Carbon Dioxide BUN Creatinine Glucose POC Glucose 190 H 256 H 184 H Lactic Acid Calcium AST Alkaline Phosphatase CK-MB (CK-2) CK-MB (CK-2) Rel Index Albumin TSH Urine WBC (Auto) Salicylates 02/14/17 02/14/17 02/14/17 12:21 17:57 23:18 WBC RBC Hgb Hct MCV MCH RDW Plt Count Lymph % (Auto) [place] % (Auto) Eos % (Auto) Seg Neutrophils % Seg Neuts % (Manual) Lymphocytes % (Manual) Seg Neutrophils # Seg Neutrophils # Man Lymphocytes # (Manual) APTT POC ABG pH ABG pH POC ABG pCO2 POC ABG pO2 ABG pO2 ABG HCO3 ABG Base Excess ABG Hemoglobin VBG pH Oxyhemoglobin Sodium Potassium Chloride Carbon Dioxide BUN Creatinine Glucose POC Glucose 233 H 155 H 165 H Lactic Acid Calcium AST Alkaline Phosphatase CK-MB (CK-2) CK-MB (CK-2) Rel Index Albumin TSH Urine WBC (Auto) Salicylates 02/15/17 02/15/17 02/15/17 05:33 11:45 17:20 WBC RBC Hgb Hct MCV MCH RDW Plt Count Lymph % (Auto) [place] % (Auto) Eos % (Auto) Seg Neutrophils % Seg Neuts % (Manual) Lymphocytes % (Manual) Seg Neutrophils # Seg Neutrophils # Man Lymphocytes # (Manual) APTT POC ABG pH ABG pH POC ABG pCO2 POC ABG pO2 ABG pO2 ABG HCO3 ABG Base Excess ABG Hemoglobin VBG pH Oxyhemoglobin Sodium Potassium Chloride Carbon Dioxide BUN Creatinine Glucose POC Glucose 239 H 130 H 189 H Lactic Acid Calcium AST Alkaline Phosphatase CK-MB (CK-2) CK-MB (CK-2) Rel Index Albumin TSH Urine WBC (Auto) Salicylates 02/16/17 02/16/17 02/16/17 00:14 05:09 12:31 WBC RBC Hgb Hct MCV MCH RDW Plt Count Lymph % (Auto) [place] % (Auto) Eos % (Auto) Seg Neutrophils % Seg Neuts % (Manual) Lymphocytes % (Manual) Seg Neutrophils # Seg Neutrophils # Man Lymphocytes # (Manual) APTT POC ABG pH ABG pH POC ABG pCO2 POC ABG pO2 ABG pO2 ABG HCO3 ABG Base Excess ABG Hemoglobin VBG pH Oxyhemoglobin Sodium Potassium Chloride Carbon Dioxide BUN Creatinine Glucose POC Glucose 197 H 226 H 178 H Lactic Acid Calcium AST Alkaline Phosphatase CK-MB (CK-2) CK-MB (CK-2) Rel Index Albumin TSH Urine WBC (Auto) Salicylates 02/16/17 02/16/17 02/17/17 16:35 23:49 05:37 WBC RBC Hgb Hct MCV MCH RDW Plt Count Lymph % (Auto) [place] % (Auto) Eos % (Auto) Seg Neutrophils % Seg Neuts % (Manual) Lymphocytes % (Manual) Seg Neutrophils # Seg Neutrophils # Man Lymphocytes # (Manual) APTT POC ABG pH ABG pH POC ABG pCO2 POC ABG pO2 ABG pO2 ABG HCO3 ABG Base Excess ABG Hemoglobin VBG pH Oxyhemoglobin Sodium Potassium Chloride Carbon Dioxide BUN Creatinine Glucose POC Glucose 174 H 62 L 153 H Lactic Acid Calcium AST Alkaline Phosphatase CK-MB (CK-2) CK-MB (CK-2) Rel Index Albumin TSH Urine WBC (Auto) Salicylates 02/17/17 02/17/17 02/17/17 11:39 17:02 22:24 WBC RBC Hgb Hct MCV MCH RDW Plt Count Lymph % (Auto) [place] % (Auto) Eos % (Auto) Seg Neutrophils % Seg Neuts % (Manual) Lymphocytes % (Manual) Seg Neutrophils # Seg Neutrophils # Man Lymphocytes # (Manual) APTT POC ABG pH ABG pH POC ABG pCO2 POC ABG pO2 ABG pO2 ABG HCO3 ABG Base Excess ABG Hemoglobin VBG pH Oxyhemoglobin Sodium Potassium Chloride Carbon Dioxide BUN Creatinine Glucose POC Glucose 231 H 112 H 116 H Lactic Acid Calcium AST Alkaline Phosphatase CK-MB (CK-2) CK-MB (CK-2) Rel Index Albumin TSH Urine WBC (Auto) Salicylates 02/18/17 02/19/17 02/19/17 15:34 05:09 07:57 WBC RBC Hgb Hct MCV MCH RDW Plt Count Lymph % (Auto) [place] % (Auto) Eos % (Auto) Seg Neutrophils % Seg Neuts % (Manual) Lymphocytes % (Manual) Seg Neutrophils # Seg Neutrophils # Man Lymphocytes # (Manual) APTT POC ABG pH ABG pH POC ABG pCO2 POC ABG pO2 ABG pO2 ABG HCO3 ABG Base Excess ABG Hemoglobin VBG pH Oxyhemoglobin Sodium Potassium Chloride Carbon Dioxide BUN Creatinine Glucose POC Glucose 215 H 218 H 283 H Lactic Acid Calcium AST Alkaline Phosphatase CK-MB (CK-2) CK-MB (CK-2) Rel Index Albumin TSH Urine WBC (Auto) Salicylates 02/19/17 02/19/17 02/20/17 14:49 22:10 05:10 WBC RBC Hgb Hct MCV MCH RDW Plt Count Lymph % (Auto) [place] % (Auto) Eos % (Auto) Seg Neutrophils % Seg Neuts % (Manual) Lymphocytes % (Manual) Seg Neutrophils # Seg Neutrophils # Man Lymphocytes # (Manual) APTT POC ABG pH ABG pH POC ABG pCO2 POC ABG pO2 ABG pO2 ABG HCO3 ABG Base Excess ABG Hemoglobin VBG pH Oxyhemoglobin Sodium Potassium Chloride Carbon Dioxide BUN Creatinine Glucose POC Glucose 290 H 169 H 209 H Lactic Acid Calcium AST Alkaline Phosphatase CK-MB (CK-2) CK-MB (CK-2) Rel Index Albumin TSH Urine WBC (Auto) Salicylates 02/20/17 02/20/17 02/21/17 15:05 21:52 02:00 WBC RBC Hgb Hct MCV MCH RDW Plt Count Lymph % (Auto) [place] % (Auto) Eos % (Auto) Seg Neutrophils % Seg Neuts % (Manual) Lymphocytes % (Manual) Seg Neutrophils # Seg Neutrophils # Man Lymphocytes # (Manual) APTT POC ABG pH ABG pH POC ABG pCO2 POC ABG pO2 ABG pO2 ABG HCO3 ABG Base Excess ABG Hemoglobin VBG pH Oxyhemoglobin Sodium Potassium Chloride Carbon Dioxide BUN Creatinine Glucose POC Glucose 172 H 209 H 216 H Lactic Acid Calcium AST Alkaline Phosphatase CK-MB (CK-2) CK-MB (CK-2) Rel Index Albumin TSH Urine WBC (Auto) Salicylates 02/21/17 02/21/17 02/21/17 04:54 14:43 17:47 WBC RBC Hgb Hct MCV MCH RDW Plt Count Lymph % (Auto) [place] % (Auto) Eos % (Auto) Seg Neutrophils % Seg Neuts % (Manual) Lymphocytes % (Manual) Seg Neutrophils # Seg Neutrophils # Man Lymphocytes # (Manual) APTT POC ABG pH ABG pH POC ABG pCO2 POC ABG pO2 ABG pO2 ABG HCO3 ABG Base Excess ABG Hemoglobin VBG pH Oxyhemoglobin Sodium Potassium Chloride Carbon Dioxide BUN Creatinine Glucose POC Glucose 227 H 290 H 220 H Lactic Acid Calcium AST Alkaline Phosphatase CK-MB (CK-2) CK-MB (CK-2) Rel Index Albumin TSH Urine WBC (Auto) Salicylates 02/21/17 02/22/17 02/22/17 22:02 04:52 15:25 WBC RBC Hgb Hct MCV MCH RDW Plt Count Lymph % (Auto) [place] % (Auto) Eos % (Auto) Seg Neutrophils % Seg Neuts % (Manual) Lymphocytes % (Manual) Seg Neutrophils # Seg Neutrophils # Man Lymphocytes # (Manual) APTT POC ABG pH ABG pH POC ABG pCO2 POC ABG pO2 ABG pO2 ABG HCO3 ABG Base Excess ABG Hemoglobin VBG pH Oxyhemoglobin Sodium Potassium Chloride Carbon Dioxide BUN Creatinine Glucose POC Glucose 246 H 212 H 236 H Lactic Acid Calcium AST Alkaline Phosphatase CK-MB (CK-2) CK-MB (CK-2) Rel Index Albumin TSH Urine WBC (Auto) Salicylates 02/22/17 02/23/17 02/23/17 21:33 06:04 10:00 WBC RBC Hgb Hct MCV MCH RDW Plt Count Lymph % (Auto) [place] % (Auto) Eos % (Auto) Seg Neutrophils % Seg Neuts % (Manual) Lymphocytes % (Manual) Seg Neutrophils # Seg Neutrophils # Man Lymphocytes # (Manual) APTT POC ABG pH ABG pH POC ABG pCO2 POC ABG pO2 ABG pO2 ABG HCO3 ABG Base Excess ABG Hemoglobin VBG pH Oxyhemoglobin Sodium Potassium Chloride Carbon Dioxide BUN Creatinine Glucose POC Glucose 255 H 208 H 174 H Lactic Acid Calcium AST Alkaline Phosphatase CK-MB (CK-2) CK-MB (CK-2) Rel Index Albumin TSH Urine WBC (Auto) Salicylates 02/23/17 02/23/17 02/23/17 12:52 17:15 21:51 WBC RBC Hgb Hct MCV MCH RDW Plt Count Lymph % (Auto) [place] % (Auto) Eos % (Auto) Seg Neutrophils % Seg Neuts % (Manual) Lymphocytes % (Manual) Seg Neutrophils # Seg Neutrophils # Man Lymphocytes # (Manual) APTT POC ABG pH ABG pH POC ABG pCO2 POC ABG pO2 ABG pO2 ABG HCO3 ABG Base Excess ABG Hemoglobin VBG pH Oxyhemoglobin Sodium Potassium Chloride Carbon Dioxide BUN Creatinine Glucose POC Glucose 203 H 269 H 205 H Lactic Acid Calcium AST Alkaline Phosphatase CK-MB (CK-2) CK-MB (CK-2) Rel Index Albumin TSH Urine WBC (Auto) Salicylates 02/24/17 02/24/17 02/24/17 10:23 17:45 21:24 WBC RBC Hgb Hct MCV MCH RDW Plt Count Lymph % (Auto) [place] % (Auto) Eos % (Auto) Seg Neutrophils % Seg Neuts % (Manual) Lymphocytes % (Manual) Seg Neutrophils # Seg Neutrophils # Man Lymphocytes # (Manual) APTT POC ABG pH ABG pH POC ABG pCO2 POC ABG pO2 ABG pO2 ABG HCO3 ABG Base Excess ABG Hemoglobin VBG pH Oxyhemoglobin Sodium Potassium Chloride Carbon Dioxide BUN Creatinine Glucose POC Glucose 280 H 239 H 254 H Lactic Acid Calcium AST Alkaline Phosphatase CK-MB (CK-2) CK-MB (CK-2) Rel Index Albumin TSH Urine WBC (Auto) Salicylates 02/25/17 02/25/17 02/25/17 02:12 05:17 14:32 WBC RBC Hgb Hct MCV MCH RDW Plt Count Lymph % (Auto) [place] % (Auto) Eos % (Auto) Seg Neutrophils % Seg Neuts % (Manual) Lymphocytes % (Manual) Seg Neutrophils # Seg Neutrophils # Man Lymphocytes # (Manual) APTT POC ABG pH ABG pH POC ABG pCO2 POC ABG pO2 ABG pO2 ABG HCO3 ABG Base Excess ABG Hemoglobin VBG pH Oxyhemoglobin Sodium Potassium Chloride Carbon Dioxide BUN Creatinine Glucose POC Glucose 296 H 332 H 353 H Lactic Acid Calcium AST Alkaline Phosphatase CK-MB (CK-2) CK-MB (CK-2) Rel Index Albumin TSH Urine WBC (Auto) Salicylates 02/25/17 02/26/17 02/26/17 22:14 00:37 05:52 WBC RBC Hgb Hct MCV MCH RDW Plt Count Lymph % (Auto) [place] % (Auto) Eos % (Auto) Seg Neutrophils % Seg Neuts % (Manual) Lymphocytes % (Manual) Seg Neutrophils # Seg Neutrophils # Man Lymphocytes # (Manual) APTT POC ABG pH ABG pH POC ABG pCO2 POC ABG pO2 ABG pO2 ABG HCO3 ABG Base Excess ABG Hemoglobin VBG pH Oxyhemoglobin Sodium Potassium Chloride Carbon Dioxide BUN Creatinine Glucose POC Glucose 201 H 233 H 269 H Lactic Acid Calcium AST Alkaline Phosphatase CK-MB (CK-2) CK-MB (CK-2) Rel Index Albumin TSH Urine WBC (Auto) Salicylates 02/26/17 02/26/17 02/26/17 11:48 13:49 21:26 WBC RBC Hgb Hct MCV MCH RDW Plt Count Lymph % (Auto) [place] % (Auto) Eos % (Auto) Seg Neutrophils % Seg Neuts % (Manual) Lymphocytes % (Manual) Seg Neutrophils # Seg Neutrophils # Man Lymphocytes # (Manual) APTT POC ABG pH ABG pH POC ABG pCO2 POC ABG pO2 ABG pO2 ABG HCO3 ABG Base Excess ABG Hemoglobin VBG pH Oxyhemoglobin Sodium Potassium Chloride Carbon Dioxide BUN Creatinine Glucose POC Glucose 333 H 322 H 244 H Lactic Acid Calcium AST Alkaline Phosphatase CK-MB (CK-2) CK-MB (CK-2) Rel Index Albumin TSH Urine WBC (Auto) Salicylates 02/27/17 02/27/17 02/27/17 05:27 13:51 21:48 WBC RBC Hgb Hct MCV MCH RDW Plt Count Lymph % (Auto) [place] % (Auto) Eos % (Auto) Seg Neutrophils % Seg Neuts % (Manual) Lymphocytes % (Manual) Seg Neutrophils # Seg Neutrophils # Man Lymphocytes # (Manual) APTT POC ABG pH ABG pH POC ABG pCO2 POC ABG pO2 ABG pO2 ABG HCO3 ABG Base Excess ABG Hemoglobin VBG pH Oxyhemoglobin Sodium Potassium Chloride Carbon Dioxide BUN Creatinine Glucose POC Glucose 217 H 239 H 254 H Lactic Acid Calcium AST Alkaline Phosphatase CK-MB (CK-2) CK-MB (CK-2) Rel Index Albumin TSH Urine WBC (Auto) Salicylates 02/28/17 02/28/17 02/28/17 05:38 11:00 19:44 WBC RBC Hgb Hct MCV MCH RDW Plt Count Lymph % (Auto) [place] % (Auto) Eos % (Auto) Seg Neutrophils % Seg Neuts % (Manual) Lymphocytes % (Manual) Seg Neutrophils # Seg Neutrophils # Man Lymphocytes # (Manual) APTT POC ABG pH ABG pH POC ABG pCO2 POC ABG pO2 ABG pO2 ABG HCO3 ABG Base Excess ABG Hemoglobin VBG pH Oxyhemoglobin Sodium Potassium Chloride Carbon Dioxide BUN Creatinine Glucose POC Glucose 325 H 203 H 116 H Lactic Acid Calcium AST Alkaline Phosphatase CK-MB (CK-2) CK-MB (CK-2) Rel Index Albumin TSH Urine WBC (Auto) Salicylates 03/01/17 03/01/17 03/01/17 00:08 05:31 12:17 WBC RBC Hgb Hct MCV MCH RDW Plt Count Lymph % (Auto) [place] % (Auto) Eos % (Auto) Seg Neutrophils % Seg Neuts % (Manual) Lymphocytes % (Manual) Seg Neutrophils # Seg Neutrophils # Man Lymphocytes # (Manual) APTT POC ABG pH ABG pH POC ABG pCO2 POC ABG pO2 ABG pO2 ABG HCO3 ABG Base Excess ABG Hemoglobin VBG pH Oxyhemoglobin Sodium Potassium Chloride Carbon Dioxide BUN Creatinine Glucose POC Glucose 202 H 183 H 184 H Lactic Acid Calcium AST Alkaline Phosphatase CK-MB (CK-2) CK-MB (CK-2) Rel Index Albumin TSH Urine WBC (Auto) Salicylates 03/02/17 03/02/17 03/02/17 00:12 05:58 18:22 WBC RBC Hgb Hct MCV MCH RDW Plt Count Lymph % (Auto) [place] % (Auto) Eos % (Auto) Seg Neutrophils % Seg Neuts % (Manual) Lymphocytes % (Manual) Seg Neutrophils # Seg Neutrophils # Man Lymphocytes # (Manual) APTT POC ABG pH ABG pH POC ABG pCO2 POC ABG pO2 ABG pO2 ABG HCO3 ABG Base Excess ABG Hemoglobin VBG pH Oxyhemoglobin Sodium Potassium Chloride Carbon Dioxide BUN Creatinine Glucose POC Glucose 117 H 176 H 156 H Lactic Acid Calcium AST Alkaline Phosphatase CK-MB (CK-2) CK-MB (CK-2) Rel Index Albumin TSH Urine WBC (Auto) Salicylates 03/02/17 03/03/17 03/03/17 23:51 05:44 11:32 WBC RBC Hgb Hct MCV MCH RDW Plt Count Lymph % (Auto) [place] % (Auto) Eos % (Auto) Seg Neutrophils % Seg Neuts % (Manual) Lymphocytes % (Manual) Seg Neutrophils # Seg Neutrophils # Man Lymphocytes # (Manual) APTT POC ABG pH ABG pH POC ABG pCO2 POC ABG pO2 ABG pO2 ABG HCO3 ABG Base Excess ABG Hemoglobin VBG pH Oxyhemoglobin Sodium Potassium Chloride Carbon Dioxide BUN Creatinine Glucose POC Glucose 211 H 117 H 133 H Lactic Acid Calcium AST Alkaline Phosphatase CK-MB (CK-2) CK-MB (CK-2) Rel Index Albumin TSH Urine WBC (Auto) Salicylates 03/03/17 03/03/17 03/04/17 17:43 23:17 05:30 WBC RBC Hgb Hct MCV MCH RDW Plt Count Lymph % (Auto) [place] % (Auto) Eos % (Auto) Seg Neutrophils % Seg Neuts % (Manual) Lymphocytes % (Manual) Seg Neutrophils # Seg Neutrophils # Man Lymphocytes # (Manual) APTT POC ABG pH ABG pH POC ABG pCO2 POC ABG pO2 ABG pO2 ABG HCO3 ABG Base Excess ABG Hemoglobin VBG pH Oxyhemoglobin Sodium Potassium Chloride Carbon Dioxide BUN Creatinine Glucose POC Glucose 206 H 170 H 126 H Lactic Acid Calcium AST Alkaline Phosphatase CK-MB (CK-2) CK-MB (CK-2) Rel Index Albumin TSH Urine WBC (Auto) Salicylates 03/04/17 03/04/17 03/05/17 12:17 17:27 05:20 WBC RBC Hgb Hct MCV MCH RDW Plt Count Lymph % (Auto) [place] % (Auto) Eos % (Auto) Seg Neutrophils % Seg Neuts % (Manual) Lymphocytes % (Manual) Seg Neutrophils # Seg Neutrophils # Man Lymphocytes # (Manual) APTT POC ABG pH ABG pH POC ABG pCO2 POC ABG pO2 ABG pO2 ABG HCO3 ABG Base Excess ABG Hemoglobin VBG pH Oxyhemoglobin Sodium Potassium Chloride Carbon Dioxide BUN Creatinine Glucose POC Glucose 135 H 121 H 185 H Lactic Acid Calcium AST Alkaline Phosphatase CK-MB (CK-2) CK-MB (CK-2) Rel Index Albumin TSH Urine WBC (Auto) Salicylates 03/05/17 03/06/17 03/06/17 11:50 11:52 17:34 WBC RBC Hgb Hct MCV MCH RDW Plt Count Lymph % (Auto) [place] % (Auto) Eos % (Auto) Seg Neutrophils % Seg Neuts % (Manual) Lymphocytes % (Manual) Seg Neutrophils # Seg Neutrophils # Man Lymphocytes # (Manual) APTT POC ABG pH ABG pH POC ABG pCO2 POC ABG pO2 ABG pO2 ABG HCO3 ABG Base Excess ABG Hemoglobin VBG pH Oxyhemoglobin Sodium Potassium Chloride Carbon Dioxide BUN Creatinine Glucose POC Glucose 116 H 133 H 181 H Lactic Acid Calcium AST Alkaline Phosphatase CK-MB (CK-2) CK-MB (CK-2) Rel Index Albumin TSH Urine WBC (Auto) Salicylates 03/07/17 03/07/17 03/07/17 05:21 11:36 17:49 WBC RBC Hgb Hct MCV MCH RDW Plt Count Lymph % (Auto) [place] % (Auto) Eos % (Auto) Seg Neutrophils % Seg Neuts % (Manual) Lymphocytes % (Manual) Seg Neutrophils # Seg Neutrophils # Man Lymphocytes # (Manual) APTT POC ABG pH ABG pH POC ABG pCO2 POC ABG pO2 ABG pO2 ABG HCO3 ABG Base Excess ABG Hemoglobin VBG pH Oxyhemoglobin Sodium Potassium Chloride Carbon Dioxide BUN Creatinine Glucose POC Glucose 159 H 137 H 158 H Lactic Acid Calcium AST Alkaline Phosphatase CK-MB (CK-2) CK-MB (CK-2) Rel Index Albumin TSH Urine WBC (Auto) Salicylates 03/08/17 03/08/17 03/08/17 05:51 13:58 23:50 WBC RBC Hgb Hct MCV MCH RDW Plt Count Lymph % (Auto) [place] % (Auto) Eos % (Auto) Seg Neutrophils % Seg Neuts % (Manual) Lymphocytes % (Manual) Seg Neutrophils # Seg Neutrophils # Man Lymphocytes # (Manual) APTT POC ABG pH ABG pH POC ABG pCO2 POC ABG pO2 ABG pO2 ABG HCO3 ABG Base Excess ABG Hemoglobin VBG pH Oxyhemoglobin Sodium Potassium Chloride Carbon Dioxide BUN Creatinine Glucose POC Glucose 122 H 182 H 114 H Lactic Acid Calcium AST Alkaline Phosphatase CK-MB (CK-2) CK-MB (CK-2) Rel Index Albumin TSH Urine WBC (Auto) Salicylates 03/09/17 03/09/17 03/09/17 05:21 05:51 05:51 WBC RBC 3.61 L Hgb 9.5 L Hct 28.3 L MCV 79 L MCH 26 L RDW 17.8 H Plt Count Lymph % (Auto) [place] % (Auto) Eos % (Auto) Seg Neutrophils % Seg Neuts % (Manual) Lymphocytes % (Manual) Seg Neutrophils # Seg Neutrophils # Man Lymphocytes # (Manual) APTT POC ABG pH ABG pH POC ABG pCO2 POC ABG pO2 ABG pO2 ABG HCO3 ABG Base Excess ABG Hemoglobin VBG pH Oxyhemoglobin Sodium 134 L Potassium Chloride 95.5 L Carbon Dioxide BUN 33 H Creatinine 0.5 L Glucose 143 H POC Glucose 153 H Lactic Acid Calcium AST Alkaline Phosphatase CK-MB (CK-2) CK-MB (CK-2) Rel Index Albumin TSH Urine WBC (Auto) Salicylates 03/09/17 03/09/17 03/09/17 12:10 18:13 21:00 WBC RBC Hgb Hct MCV MCH RDW Plt Count Lymph % (Auto) [place] % (Auto) Eos % (Auto) Seg Neutrophils % Seg Neuts % (Manual) Lymphocytes % (Manual) Seg Neutrophils # Seg Neutrophils # Man Lymphocytes # (Manual) APTT POC ABG pH ABG pH POC ABG pCO2 POC ABG pO2 ABG pO2 ABG HCO3 ABG Base Excess ABG Hemoglobin VBG pH Oxyhemoglobin Sodium Potassium Chloride Carbon Dioxide BUN Creatinine Glucose POC Glucose 203 H 221 H 198 H Lactic Acid Calcium AST Alkaline Phosphatase CK-MB (CK-2) CK-MB (CK-2) Rel Index Albumin TSH Urine WBC (Auto) Salicylates 03/09/17 03/10/17 03/10/17 23:58 05:09 05:09 WBC RBC Hgb 10.3 L Hct 30.5 L MCV 78 L MCH 26 L RDW 17.9 H Plt Count Lymph % (Auto) [place] % (Auto) 10.0 H Eos % (Auto) 6.0 H Seg Neutrophils % Seg Neuts % (Manual) Lymphocytes % (Manual) Seg Neutrophils # Seg Neutrophils # Man Lymphocytes # (Manual) APTT POC ABG pH ABG pH POC ABG pCO2 POC ABG pO2 ABG pO2 ABG HCO3 ABG Base Excess ABG Hemoglobin VBG pH Oxyhemoglobin Sodium 132 L Potassium Chloride 92.2 L Carbon Dioxide BUN 33 H Creatinine 0.5 L Glucose 50 L POC Glucose 167 H Lactic Acid Calcium AST Alkaline Phosphatase CK-MB (CK-2) CK-MB (CK-2) Rel Index Albumin TSH Urine WBC (Auto) Salicylates 03/10/17 03/10/17 03/10/17 05:33 05:34 11:48 WBC RBC Hgb Hct MCV MCH RDW Plt Count Lymph % (Auto) [place] % (Auto) Eos % (Auto) Seg Neutrophils % Seg Neuts % (Manual) Lymphocytes % (Manual) Seg Neutrophils # Seg Neutrophils # Man Lymphocytes # (Manual) APTT POC ABG pH ABG pH POC ABG pCO2 POC ABG pO2 ABG pO2 ABG HCO3 ABG Base Excess ABG Hemoglobin VBG pH Oxyhemoglobin Sodium Potassium Chloride Carbon Dioxide BUN Creatinine Glucose POC Glucose 52 L 53 L 148 H Lactic Acid Calcium AST Alkaline Phosphatase CK-MB (CK-2) CK-MB (CK-2) Rel Index Albumin TSH Urine WBC (Auto) Salicylates 03/10/17 03/10/17 03/11/17 17:53 23:47 05:18 WBC RBC Hgb Hct MCV MCH RDW Plt Count Lymph % (Auto) [place] % (Auto) Eos % (Auto) Seg Neutrophils % Seg Neuts % (Manual) Lymphocytes % (Manual) Seg Neutrophils # Seg Neutrophils # Man Lymphocytes # (Manual) APTT POC ABG pH ABG pH POC ABG pCO2 POC ABG pO2 ABG pO2 ABG HCO3 ABG Base Excess ABG Hemoglobin VBG pH Oxyhemoglobin Sodium Potassium Chloride Carbon Dioxide BUN Creatinine Glucose POC Glucose 189 H 398 H 126 H Lactic Acid Calcium AST Alkaline Phosphatase CK-MB (CK-2) CK-MB (CK-2) Rel Index Albumin TSH Urine WBC (Auto) Salicylates 03/11/17 03/11/17 03/11/17 11:53 17:30 23:10 WBC RBC Hgb Hct MCV MCH RDW Plt Count Lymph % (Auto) [place] % (Auto) Eos % (Auto) Seg Neutrophils % Seg Neuts % (Manual) Lymphocytes % (Manual) Seg Neutrophils # Seg Neutrophils # Man Lymphocytes # (Manual) APTT POC ABG pH ABG pH POC ABG pCO2 POC ABG pO2 ABG pO2 ABG HCO3 ABG Base Excess ABG Hemoglobin VBG pH Oxyhemoglobin Sodium Potassium Chloride Carbon Dioxide BUN Creatinine Glucose POC Glucose 198 H 142 H 244 H Lactic Acid Calcium AST Alkaline Phosphatase CK-MB (CK-2) CK-MB (CK-2) Rel Index Albumin TSH Urine WBC (Auto) Salicylates 03/12/17 03/12/17 03/12/17 04:36 11:49 17:23 WBC RBC Hgb Hct MCV MCH RDW Plt Count Lymph % (Auto) [place] % (Auto) Eos % (Auto) Seg Neutrophils % Seg Neuts % (Manual) Lymphocytes % (Manual) Seg Neutrophils # Seg Neutrophils # Man Lymphocytes # (Manual) APTT POC ABG pH ABG pH POC ABG pCO2 POC ABG pO2 ABG pO2 ABG HCO3 ABG Base Excess ABG Hemoglobin VBG pH Oxyhemoglobin Sodium Potassium Chloride Carbon Dioxide BUN Creatinine Glucose POC Glucose 205 H 197 H 209 H Lactic Acid Calcium AST Alkaline Phosphatase CK-MB (CK-2) CK-MB (CK-2) Rel Index Albumin TSH Urine WBC (Auto) Salicylates 03/12/17 03/13/17 03/13/17 23:51 05:32 11:43 WBC RBC Hgb Hct MCV MCH RDW Plt Count Lymph % (Auto) [place] % (Auto) Eos % (Auto) Seg Neutrophils % Seg Neuts % (Manual) Lymphocytes % (Manual) Seg Neutrophils # Seg Neutrophils # Man Lymphocytes # (Manual) APTT POC ABG pH ABG pH POC ABG pCO2 POC ABG pO2 ABG pO2 ABG HCO3 ABG Base Excess ABG Hemoglobin VBG pH Oxyhemoglobin Sodium Potassium Chloride Carbon Dioxide BUN Creatinine Glucose POC Glucose 210 H 154 H 164 H Lactic Acid Calcium AST Alkaline Phosphatase CK-MB (CK-2) CK-MB (CK-2) Rel Index Albumin TSH Urine WBC (Auto) Salicylates 03/13/17 03/13/17 03/14/17 17:11 23:26 05:42 WBC RBC Hgb Hct MCV MCH RDW Plt Count Lymph % (Auto) [place] % (Auto) Eos % (Auto) Seg Neutrophils % Seg Neuts % (Manual) Lymphocytes % (Manual) Seg Neutrophils # Seg Neutrophils # Man Lymphocytes # (Manual) APTT POC ABG pH ABG pH POC ABG pCO2 POC ABG pO2 ABG pO2 ABG HCO3 ABG Base Excess ABG Hemoglobin VBG pH Oxyhemoglobin Sodium Potassium Chloride Carbon Dioxide BUN Creatinine Glucose POC Glucose 195 H 240 H 230 H Lactic Acid Calcium AST Alkaline Phosphatase CK-MB (CK-2) CK-MB (CK-2) Rel Index Albumin TSH Urine WBC (Auto) Salicylates 03/14/17 03/14/17 03/14/17 14:04 17:34 23:42 WBC RBC Hgb Hct MCV MCH RDW Plt Count Lymph % (Auto) [place] % (Auto) Eos % (Auto) Seg Neutrophils % Seg Neuts % (Manual) Lymphocytes % (Manual) Seg Neutrophils # Seg Neutrophils # Man Lymphocytes # (Manual) APTT POC ABG pH ABG pH POC ABG pCO2 POC ABG pO2 ABG pO2 ABG HCO3 ABG Base Excess ABG Hemoglobin VBG pH Oxyhemoglobin Sodium Potassium Chloride Carbon Dioxide BUN Creatinine Glucose POC Glucose 227 H 186 H 225 H Lactic Acid Calcium AST Alkaline Phosphatase CK-MB (CK-2) CK-MB (CK-2) Rel Index Albumin TSH Urine WBC (Auto) Salicylates 03/15/17 03/15/17 03/15/17 05:21 17:13 21:37 WBC RBC Hgb Hct MCV MCH RDW Plt Count Lymph % (Auto) [place] % (Auto) Eos % (Auto) Seg Neutrophils % Seg Neuts % (Manual) Lymphocytes % (Manual) Seg Neutrophils # Seg Neutrophils # Man Lymphocytes # (Manual) APTT POC ABG pH ABG pH POC ABG pCO2 POC ABG pO2 ABG pO2 ABG HCO3 ABG Base Excess ABG Hemoglobin VBG pH Oxyhemoglobin Sodium Potassium Chloride Carbon Dioxide BUN Creatinine Glucose POC Glucose 244 H 203 H 216 H Lactic Acid Calcium AST Alkaline Phosphatase CK-MB (CK-2) CK-MB (CK-2) Rel Index Albumin TSH Urine WBC (Auto) Salicylates 03/16/17 03/16/17 03/16/17 05:52 18:07 21:54 WBC RBC Hgb Hct MCV MCH RDW Plt Count Lymph % (Auto) [place] % (Auto) Eos % (Auto) Seg Neutrophils % Seg Neuts % (Manual) Lymphocytes % (Manual) Seg Neutrophils # Seg Neutrophils # Man Lymphocytes # (Manual) APTT POC ABG pH ABG pH POC ABG pCO2 POC ABG pO2 ABG pO2 ABG HCO3 ABG Base Excess ABG Hemoglobin VBG pH Oxyhemoglobin Sodium Potassium Chloride Carbon Dioxide BUN Creatinine Glucose POC Glucose 248 H 254 H 244 H Lactic Acid Calcium AST Alkaline Phosphatase CK-MB (CK-2) CK-MB (CK-2) Rel Index Albumin TSH Urine WBC (Auto) Salicylates 1203/17/17 03/17/17 07:07 07:42 07:43 WBC RBC Hgb 9.7 L Hct 29.1 L MCV 78 L MCH 26 L RDW 17.4 H Plt Count Lymph % (Auto) [place] % (Auto) Eos % (Auto) Seg Neutrophils % Seg Neuts % (Manual) Lymphocytes % (Manual) Seg Neutrophils # Seg Neutrophils # Man Lymphocytes # (Manual) APTT POC ABG pH ABG pH POC ABG pCO2 POC ABG pO2 ABG pO2 ABG HCO3 ABG Base Excess ABG Hemoglobin VBG pH Oxyhemoglobin Sodium Potassium Chloride 96.6 L Carbon Dioxide BUN 30 H Creatinine 0.5 L Glucose 251 H POC Glucose 222 H Lactic Acid Calcium AST Alkaline Phosphatase CK-MB (CK-2) CK-MB (CK-2) Rel Index Albumin TSH Urine WBC (Auto) Salicylates
[2017-03-17] MEDS: PEPCID PO SCH ×2 (11:46→22:23)
[2017-03-17] MEDS: HEPARIN SUB-Q SCH ×2 (11:46→22:22)
[2017-03-18] MEDS: SYNTHROID PO SCH (05:42)
[2017-03-18] MEDS: HumuLIN R SUB-Q SCH ×3 (07:09→22:58)
--- NOTE | 2017-03-18 08:38 | Progress Note ---
Assessment and Plan 51 y/o male found down, concern for sepsis and now encephalopathic requiring mechanical ventilation. 1. continue supportive care 2. 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 I am aware that he is an AND but trach will not fix this problem and is not in my professional opinion the right thing to do for this patient. Most likely he will never be weaned from the vent and will remain in a persistent vegatative state. 3. Patient is not on abx therapy and currently does not need this 4. Overall prognosis continues to be poor. 5. Will not check labs 6. Vitals should be qshift 7. This patient's possibility of awakening from this persistent vegatative is unlikely. The current status is that there has been paper work filed to obtain guardianship so that end of life decisions can be made. Supportive care is reasonable but checking daily labs and doing other invasive things to this patient I do not feel is morally and ethically appropriate. Will discuss with [facility] about this as well. Subjective Date of service: 03/18/17 Principal diagnosis: Acute respiratory failure,encephalopathy Interval history: No acute events. Clinical status is unchanged. Still no family. Objective Vital Signs - 12hr 03/17/17 03/17/17 03/17/17 21:01 22:00 23:00 Temperature Pulse Rate 62 64 61 Respiratory 17 15 14 Rate Blood Pressure 127/82 127/82 127/82 O2 Sat by Pulse 100 99 100 Oximetry 03/17/17 03/18/17 03/18/17 23:36 00:00 01:00 Temperature 99.0 F Pulse Rate 63 69 64 Respiratory 17 15 Rate Blood Pressure 127/82 130/87 130/87 O2 Sat by Pulse 100 100 100 Oximetry 03/18/17 03/18/17 03/18/17 02:00 03:00 03:42 Temperature Pulse Rate 64 67 64 Respiratory 16 15 Rate Blood Pressure 130/87 130/87 130/87 O2 Sat by Pulse 100 100 97 Oximetry 03/18/17 03/18/17 03/18/17 03:43 04:00 05:00 Temperature 98.9 F Pulse Rate 63 72 Respiratory 16 18 Rate Blood Pressure 130/87 130/87 O2 Sat by Pulse 98 99 Oximetry Constitutional: no acute distress, other (intubated, on vent support) Eyes: non-icteric ENT: oropharynx moist Neck: supple Effort: normal Ascultation: Bilateral: clear, diminished breath sounds Cardiovascular: regular rate and rhythm Gastrointestinal: normoactive bowel sounds, soft, non-tender, non-distended Integumentary: normal Extremities: no cyanosis, no edema, pink and warm Neurologic: other (awake spontaneously, not not following any commands. Fixed stare.) Psychiatric: other (unable to obtain) CBC and BMP: 03/17/17 07:43 03/17/17 07:42 ABG, PT/INR, D-dimer: ABG POC ABG pH 7.442 (7.35-7.45) 01/31/17 18:55 ABG pH 7.420 pH Units (7.350-7.450) 01/17/17 04:35 POC ABG pCO2 32.8 (35-45) L 01/31/17 18:55 ABG pCO2 34.5 mm Hg 01/17/17 04:35 POC ABG pO2 82 (80-105) 01/31/17 18:55 ABG pO2 160.3 mm Hg (80.0-90.0) H 01/17/17 04:35 POC ABG HCO3 22.4 01/31/17 18:55 POC ABG Total CO2 23 01/31/17 18:55 POC ABG O2 Sat 97 01/31/17 18:55 ABG O2 Saturation 99.0 % (95.0-99.0) 01/17/17 04:35 PT/INR, D-dimer PT 14.1 Sec. (12.2-14.9) 01/17/17 04:10 INR 1.04 (0.87-1.13) 01/17/17 04:10 Abnormal lab findings: Abnormal Labs 01/09/17 01/09/17 01/09/17 10:16 10:16 10:16 WBC RBC Hgb 9.7 L Hct 28.4 L MCV 76 L MCH 26 L RDW 17.2 H Plt Count 448 H Lymph % (Auto) [place] % (Auto) Eos % (Auto) Seg Neutrophils % 79.5 H Seg Neuts % (Manual) Lymphocytes % (Manual) Seg Neutrophils # Seg Neutrophils # Man Lymphocytes # (Manual) APTT 39.6 H POC ABG pH ABG pH POC ABG pCO2 POC ABG pO2 ABG pO2 ABG HCO3 ABG Base Excess ABG Hemoglobin VBG pH Oxyhemoglobin Sodium 132 L Potassium Chloride 96.7 L Carbon Dioxide 21 L BUN 34 H Creatinine Glucose POC Glucose Lactic Acid Calcium 8.3 L AST Alkaline Phosphatase 151 H CK-MB (CK-2) 7.1 H CK-MB (CK-2) Rel Index 5.2 H Albumin 3.3 L TSH Urine WBC (Auto) Salicylates 01/09/17 01/09/17 01/09/17 10:16 10:16 10:16 WBC RBC Hgb Hct MCV MCH RDW Plt Count Lymph % (Auto) [place] % (Auto) Eos % (Auto) Seg Neutrophils % Seg Neuts % (Manual) Lymphocytes % (Manual) Seg Neutrophils # Seg Neutrophils # Man Lymphocytes # (Manual) APTT POC ABG pH ABG pH POC ABG pCO2 POC ABG pO2 ABG pO2 ABG HCO3 ABG Base Excess ABG Hemoglobin VBG pH 7.284 L Oxyhemoglobin Sodium Potassium Chloride Carbon Dioxide BUN Creatinine Glucose POC Glucose Lactic Acid Calcium AST Alkaline Phosphatase CK-MB (CK-2) CK-MB (CK-2) Rel Index Albumin TSH 52.800 H Urine WBC (Auto) Salicylates < 0.3 L 01/09/17 01/09/17 01/09/17 10:23 11:14 12:49 WBC RBC Hgb Hct MCV MCH RDW Plt Count Lymph % (Auto) [place] % (Auto) Eos % (Auto) Seg Neutrophils % Seg Neuts % (Manual) Lymphocytes % (Manual) Seg Neutrophils # Seg Neutrophils # Man Lymphocytes # (Manual) APTT POC ABG pH ABG pH POC ABG pCO2 POC ABG pO2 643 H ABG pO2 ABG HCO3 ABG Base Excess ABG Hemoglobin VBG pH Oxyhemoglobin Sodium Potassium Chloride Carbon Dioxide BUN Creatinine Glucose POC Glucose < 40 L Lactic Acid Calcium AST Alkaline Phosphatase CK-MB (CK-2) CK-MB (CK-2) Rel Index Albumin TSH Urine WBC (Auto) 61.0 H Salicylates 01/09/17 01/09/17 01/09/17 13:13 14:21 15:09 WBC RBC Hgb Hct MCV MCH RDW Plt Count Lymph % (Auto) [place] % (Auto) Eos % (Auto) Seg Neutrophils % Seg Neuts % (Manual) Lymphocytes % (Manual) Seg Neutrophils # Seg Neutrophils # Man Lymphocytes # (Manual) APTT POC ABG pH ABG pH POC ABG pCO2 POC ABG pO2 ABG pO2 ABG HCO3 ABG Base Excess ABG Hemoglobin VBG pH Oxyhemoglobin Sodium Potassium Chloride Carbon Dioxide BUN Creatinine Glucose POC Glucose 128 H 65 L 120 H Lactic Acid Calcium AST Alkaline Phosphatase CK-MB (CK-2) CK-MB (CK-2) Rel Index Albumin TSH Urine WBC (Auto) Salicylates 01/09/17 01/09/17 01/10/17 16:28 17:14 04:30 WBC 24.1 H RBC 3.38 L Hgb 8.5 L Hct 26.0 L MCV 77 L MCH 25 L RDW 17.9 H Plt Count 474 H Lymph % (Auto) [place] % (Auto) Eos % (Auto) Seg Neutrophils % Seg Neuts % (Manual) 88.0 H Lymphocytes % (Manual) 4.0 L Seg Neutrophils # Seg Neutrophils # Man 21.2 H Lymphocytes # (Manual) 1.0 L APTT POC ABG pH ABG pH POC ABG pCO2 POC ABG pO2 ABG pO2 ABG HCO3 ABG Base Excess ABG Hemoglobin VBG pH Oxyhemoglobin Sodium Potassium Chloride Carbon Dioxide BUN Creatinine Glucose POC Glucose 44 L 112 H Lactic Acid Calcium AST Alkaline Phosphatase CK-MB (CK-2) CK-MB (CK-2) Rel Index Albumin TSH Urine WBC (Auto) Salicylates 01/10/17 01/10/17 01/10/17 04:30 05:41 05:45 WBC RBC Hgb Hct MCV MCH RDW Plt Count Lymph % (Auto) [place] % (Auto) Eos % (Auto) Seg Neutrophils % Seg Neuts % (Manual) Lymphocytes % (Manual) Seg Neutrophils # Seg Neutrophils # Man Lymphocytes # (Manual) APTT POC ABG pH ABG pH POC ABG pCO2 26.6 L POC ABG pO2 207 H ABG pO2 ABG HCO3 ABG Base Excess ABG Hemoglobin VBG pH Oxyhemoglobin Sodium Potassium Chloride Carbon Dioxide 17 L BUN 27 H Creatinine Glucose POC Glucose 68 L Lactic Acid Calcium 7.5 L AST Alkaline Phosphatase CK-MB (CK-2) CK-MB (CK-2) Rel Index Albumin TSH Urine WBC (Auto) Salicylates 01/10/17 01/10/17 01/10/17 07:47 10:50 13:41 WBC RBC Hgb Hct MCV MCH RDW Plt Count Lymph % (Auto) [place] % (Auto) Eos % (Auto) Seg Neutrophils % Seg Neuts % (Manual) Lymphocytes % (Manual) Seg Neutrophils # Seg Neutrophils # Man Lymphocytes # (Manual) APTT POC ABG pH ABG pH POC ABG pCO2 POC ABG pO2 ABG pO2 ABG HCO3 ABG Base Excess ABG Hemoglobin VBG pH Oxyhemoglobin Sodium Potassium Chloride Carbon Dioxide BUN Creatinine Glucose POC Glucose 148 H 165 H 114 H Lactic Acid Calcium AST Alkaline Phosphatase CK-MB (CK-2) CK-MB (CK-2) Rel Index Albumin TSH Urine WBC (Auto) Salicylates 01/10/17 01/10/17 01/10/17 20:20 21:39 23:24 WBC RBC Hgb Hct MCV MCH RDW Plt Count Lymph % (Auto) [place] % (Auto) Eos % (Auto) Seg Neutrophils % Seg Neuts % (Manual) Lymphocytes % (Manual) Seg Neutrophils # Seg Neutrophils # Man Lymphocytes # (Manual) APTT POC ABG pH ABG pH POC ABG pCO2 POC ABG pO2 ABG pO2 ABG HCO3 ABG Base Excess ABG Hemoglobin VBG pH Oxyhemoglobin Sodium Potassium Chloride Carbon Dioxide BUN Creatinine Glucose POC Glucose 150 H 175 H 155 H Lactic Acid Calcium AST Alkaline Phosphatase CK-MB (CK-2) CK-MB (CK-2) Rel Index Albumin TSH Urine WBC (Auto) Salicylates 01/11/17 01/11/17 01/11/17 00:19 04:06 05:20 WBC 15.2 H RBC 3.40 L Hgb 8.9 L Hct 26.3 L MCV 78 L MCH 26 L RDW 18.6 H Plt Count 462 H Lymph % (Auto) 13.2 L [place] % (Auto) Eos % (Auto) Seg Neutrophils % 80.8 H Seg Neuts % (Manual) Lymphocytes % (Manual) Seg Neutrophils # 12.3 H Seg Neutrophils # Man Lymphocytes # (Manual) APTT POC ABG pH 7.463 H ABG pH POC ABG pCO2 26.2 L POC ABG pO2 185 H ABG pO2 ABG HCO3 ABG Base Excess ABG Hemoglobin VBG pH Oxyhemoglobin Sodium Potassium Chloride Carbon Dioxide BUN Creatinine Glucose POC Glucose 163 H Lactic Acid Calcium AST Alkaline Phosphatase CK-MB (CK-2) CK-MB (CK-2) Rel Index Albumin TSH Urine WBC (Auto) Salicylates 01/11/17 01/11/17 01/11/17 05:20 06:21 07:57 WBC RBC Hgb Hct MCV MCH RDW Plt Count Lymph % (Auto) [place] % (Auto) Eos % (Auto) Seg Neutrophils % Seg Neuts % (Manual) Lymphocytes % (Manual) Seg Neutrophils # Seg Neutrophils # Man Lymphocytes # (Manual) APTT POC ABG pH ABG pH POC ABG pCO2 POC ABG pO2 ABG pO2 ABG HCO3 ABG Base Excess ABG Hemoglobin VBG pH Oxyhemoglobin Sodium Potassium 3.4 L Chloride 111.5 H Carbon Dioxide 17 L BUN Creatinine Glucose 147 H POC Glucose 139 H 188 H Lactic Acid Calcium 8.0 L AST Alkaline Phosphatase CK-MB (CK-2) CK-MB (CK-2) Rel Index Albumin TSH Urine WBC (Auto) Salicylates 01/11/17 01/11/17 01/11/17 11:46 16:50 23:15 WBC RBC Hgb Hct MCV MCH RDW Plt Count Lymph % (Auto) [place] % (Auto) Eos % (Auto) Seg Neutrophils % Seg Neuts % (Manual) Lymphocytes % (Manual) Seg Neutrophils # Seg Neutrophils # Man Lymphocytes # (Manual) APTT POC ABG pH ABG pH POC ABG pCO2 POC ABG pO2 ABG pO2 ABG HCO3 ABG Base Excess ABG Hemoglobin VBG pH Oxyhemoglobin Sodium Potassium Chloride Carbon Dioxide BUN Creatinine Glucose POC Glucose 199 H 235 H 155 H Lactic Acid Calcium AST Alkaline Phosphatase CK-MB (CK-2) CK-MB (CK-2) Rel Index Albumin TSH Urine WBC (Auto) Salicylates 01/12/17 01/12/17 01/12/17 05:02 06:56 14:50 WBC RBC Hgb Hct MCV MCH RDW Plt Count Lymph % (Auto) [place] % (Auto) Eos % (Auto) Seg Neutrophils % Seg Neuts % (Manual) Lymphocytes % (Manual) Seg Neutrophils # Seg Neutrophils # Man Lymphocytes # (Manual) APTT POC ABG pH ABG pH POC ABG pCO2 28.0 L POC ABG pO2 178 H ABG pO2 ABG HCO3 ABG Base Excess ABG Hemoglobin VBG pH Oxyhemoglobin Sodium Potassium Chloride Carbon Dioxide BUN Creatinine Glucose POC Glucose 119 H 164 H Lactic Acid Calcium AST Alkaline Phosphatase CK-MB (CK-2) CK-MB (CK-2) Rel Index Albumin TSH Urine WBC (Auto) Salicylates 01/13/17 01/13/17 01/13/17 03:37 03:37 04:26 WBC RBC 3.61 L Hgb 9.3 L Hct 28.0 L MCV 78 L MCH 26 L RDW 18.2 H Plt Count Lymph % (Auto) [place] % (Auto) Eos % (Auto) Seg Neutrophils % Seg Neuts % (Manual) Lymphocytes % (Manual) Seg Neutrophils # Seg Neutrophils # Man Lymphocytes # (Manual) APTT POC ABG pH 7.485 H ABG pH POC ABG pCO2 25.4 L POC ABG pO2 73 L ABG pO2 ABG HCO3 ABG Base Excess ABG Hemoglobin VBG pH Oxyhemoglobin Sodium Potassium Chloride 112.4 H Carbon Dioxide 19 L BUN Creatinine Glucose 118 H POC Glucose Lactic Acid Calcium 8.0 L AST Alkaline Phosphatase CK-MB (CK-2) CK-MB (CK-2) Rel Index Albumin TSH Urine WBC (Auto) Salicylates 01/13/17 01/13/17 01/13/17 06:15 11:50 17:31 WBC RBC Hgb Hct MCV MCH RDW Plt Count Lymph % (Auto) [place] % (Auto) Eos % (Auto) Seg Neutrophils % Seg Neuts % (Manual) Lymphocytes % (Manual) Seg Neutrophils # Seg Neutrophils # Man Lymphocytes # (Manual) APTT POC ABG pH ABG pH POC ABG pCO2 POC ABG pO2 ABG pO2 ABG HCO3 ABG Base Excess ABG Hemoglobin VBG pH Oxyhemoglobin Sodium Potassium Chloride Carbon Dioxide BUN Creatinine Glucose POC Glucose 116 H 171 H 203 H Lactic Acid Calcium AST Alkaline Phosphatase CK-MB (CK-2) CK-MB (CK-2) Rel Index Albumin TSH Urine WBC (Auto) Salicylates 01/14/17 01/14/17 01/14/17 00:02 04:50 04:50 WBC RBC 3.32 L Hgb 8.5 L Hct 26.1 L MCV 79 L MCH 26 L RDW 18.2 H Plt Count Lymph % (Auto) [place] % (Auto) 9.0 H Eos % (Auto) Seg Neutrophils % Seg Neuts % (Manual) Lymphocytes % (Manual) Seg Neutrophils # Seg Neutrophils # Man Lymphocytes # (Manual) APTT POC ABG pH ABG pH POC ABG pCO2 POC ABG pO2 ABG pO2 ABG HCO3 ABG Base Excess ABG Hemoglobin VBG pH Oxyhemoglobin Sodium Potassium Chloride 112.5 H Carbon Dioxide BUN Creatinine Glucose 149 H POC Glucose 157 H Lactic Acid Calcium 8.1 L AST Alkaline Phosphatase CK-MB (CK-2) CK-MB (CK-2) Rel Index Albumin TSH Urine WBC (Auto) Salicylates 01/14/17 01/14/17 01/14/17 05:10 11:27 14:07 WBC RBC Hgb Hct MCV MCH RDW Plt Count Lymph % (Auto) [place] % (Auto) Eos % (Auto) Seg Neutrophils % Seg Neuts % (Manual) Lymphocytes % (Manual) Seg Neutrophils # Seg Neutrophils # Man Lymphocytes # (Manual) APTT POC ABG pH ABG pH POC ABG pCO2 POC ABG pO2 ABG pO2 ABG HCO3 ABG Base Excess ABG Hemoglobin VBG pH Oxyhemoglobin Sodium Potassium Chloride Carbon Dioxide BUN Creatinine Glucose POC Glucose 176 H 147 H Lactic Acid Calcium AST Alkaline Phosphatase CK-MB (CK-2) CK-MB (CK-2) Rel Index Albumin TSH Urine WBC (Auto) 53.0 H Salicylates 01/14/17 01/15/17 01/15/17 16:52 00:04 05:26 WBC RBC Hgb Hct MCV MCH RDW Plt Count Lymph % (Auto) [place] % (Auto) Eos % (Auto) Seg Neutrophils % Seg Neuts % (Manual) Lymphocytes % (Manual) Seg Neutrophils # Seg Neutrophils # Man Lymphocytes # (Manual) APTT POC ABG pH ABG pH POC ABG pCO2 POC ABG pO2 ABG pO2 ABG HCO3 ABG Base Excess ABG Hemoglobin VBG pH Oxyhemoglobin Sodium Potassium Chloride Carbon Dioxide BUN Creatinine Glucose POC Glucose 131 H 193 H 215 H Lactic Acid Calcium AST Alkaline Phosphatase CK-MB (CK-2) CK-MB (CK-2) Rel Index Albumin TSH Urine WBC (Auto) Salicylates 01/15/17 01/15/17 01/15/17 11:49 17:47 21:33 WBC RBC Hgb Hct MCV MCH RDW Plt Count Lymph % (Auto) [place] % (Auto) Eos % (Auto) Seg Neutrophils % Seg Neuts % (Manual) Lymphocytes % (Manual) Seg Neutrophils # Seg Neutrophils # Man Lymphocytes # (Manual) APTT POC ABG pH ABG pH POC ABG pCO2 POC ABG pO2 ABG pO2 ABG HCO3 ABG Base Excess ABG Hemoglobin VBG pH Oxyhemoglobin Sodium Potassium Chloride Carbon Dioxide BUN Creatinine Glucose POC Glucose 121 H 211 H 275 H Lactic Acid Calcium AST Alkaline Phosphatase CK-MB (CK-2) CK-MB (CK-2) Rel Index Albumin TSH Urine WBC (Auto) Salicylates 01/16/17 01/16/17 01/16/17 04:30 05:28 13:45 WBC RBC Hgb Hct MCV MCH RDW Plt Count Lymph % (Auto) [place] % (Auto) Eos % (Auto) Seg Neutrophils % Seg Neuts % (Manual) Lymphocytes % (Manual) Seg Neutrophils # Seg Neutrophils # Man Lymphocytes # (Manual) APTT POC ABG pH ABG pH 7.457 H POC ABG pCO2 POC ABG pO2 ABG pO2 55.1 L ABG HCO3 19.4 L ABG Base Excess -4.0 L ABG Hemoglobin 6.8 L VBG pH Oxyhemoglobin 94.9 L Sodium Potassium Chloride Carbon Dioxide BUN Creatinine Glucose POC Glucose 271 H 236 H Lactic Acid Calcium AST Alkaline Phosphatase CK-MB (CK-2) CK-MB (CK-2) Rel Index Albumin TSH Urine WBC (Auto) Salicylates 01/16/17 01/17/17 01/17/17 21:39 04:10 04:10 WBC 4.4 L RBC 2.98 L Hgb 7.7 L Hct 23.3 L MCV 78 L MCH 26 L RDW 18.1 H Plt Count Lymph % (Auto) [place] % (Auto) Eos % (Auto) Seg Neutrophils % Seg Neuts % (Manual) Lymphocytes % (Manual) Seg Neutrophils # Seg Neutrophils # Man Lymphocytes # (Manual) APTT POC ABG pH ABG pH POC ABG pCO2 POC ABG pO2 ABG pO2 ABG HCO3 ABG Base Excess ABG Hemoglobin VBG pH Oxyhemoglobin Sodium Potassium 3.3 L Chloride 108.7 H Carbon Dioxide 20 L BUN 8 L Creatinine Glucose 202 H POC Glucose 258 H Lactic Acid Calcium 7.6 L AST Alkaline Phosphatase CK-MB (CK-2) CK-MB (CK-2) Rel Index Albumin TSH Urine WBC (Auto) Salicylates 01/17/17 01/17/17 01/17/17 04:35 12:23 16:01 WBC RBC Hgb Hct MCV MCH RDW Plt Count Lymph % (Auto) [place] % (Auto) Eos % (Auto) Seg Neutrophils % Seg Neuts % (Manual) Lymphocytes % (Manual) Seg Neutrophils # Seg Neutrophils # Man Lymphocytes # (Manual) APTT POC ABG pH ABG pH POC ABG pCO2 POC ABG pO2 ABG pO2 160.3 H ABG HCO3 ABG Base Excess -2.3 L ABG Hemoglobin 7.9 L VBG pH Oxyhemoglobin Sodium Potassium Chloride Carbon Dioxide BUN Creatinine Glucose POC Glucose 321 H 239 H Lactic Acid Calcium AST Alkaline Phosphatase CK-MB (CK-2) CK-MB (CK-2) Rel Index Albumin TSH Urine WBC (Auto) Salicylates 01/18/17 01/18/17 01/18/17 05:07 12:09 17:54 WBC RBC Hgb Hct MCV MCH RDW Plt Count Lymph % (Auto) [place] % (Auto) Eos % (Auto) Seg Neutrophils % Seg Neuts % (Manual) Lymphocytes % (Manual) Seg Neutrophils # Seg Neutrophils # Man Lymphocytes # (Manual) APTT POC ABG pH ABG pH POC ABG pCO2 POC ABG pO2 ABG pO2 ABG HCO3 ABG Base Excess ABG Hemoglobin VBG pH Oxyhemoglobin Sodium Potassium Chloride Carbon Dioxide BUN Creatinine Glucose POC Glucose 155 H 203 H 132 H Lactic Acid Calcium AST Alkaline Phosphatase CK-MB (CK-2) CK-MB (CK-2) Rel Index Albumin TSH Urine WBC (Auto) Salicylates 01/18/17 01/19/17 01/19/17 23:43 04:28 12:11 WBC RBC Hgb Hct MCV MCH RDW Plt Count Lymph % (Auto) [place] % (Auto) Eos % (Auto) Seg Neutrophils % Seg Neuts % (Manual) Lymphocytes % (Manual) Seg Neutrophils # Seg Neutrophils # Man Lymphocytes # (Manual) APTT POC ABG pH ABG pH POC ABG pCO2 POC ABG pO2 ABG pO2 ABG HCO3 ABG Base Excess ABG Hemoglobin VBG pH Oxyhemoglobin Sodium Potassium Chloride Carbon Dioxide BUN Creatinine Glucose POC Glucose 125 H 182 H 153 H Lactic Acid Calcium AST Alkaline Phosphatase CK-MB (CK-2) CK-MB (CK-2) Rel Index Albumin TSH Urine WBC (Auto) Salicylates 01/19/17 01/20/17 01/20/17 17:23 00:12 05:44 WBC RBC Hgb Hct MCV MCH RDW Plt Count Lymph % (Auto) [place] % (Auto) Eos % (Auto) Seg Neutrophils % Seg Neuts % (Manual) Lymphocytes % (Manual) Seg Neutrophils # Seg Neutrophils # Man Lymphocytes # (Manual) APTT POC ABG pH ABG pH POC ABG pCO2 POC ABG pO2 ABG pO2 ABG HCO3 ABG Base Excess ABG Hemoglobin VBG pH Oxyhemoglobin Sodium Potassium Chloride Carbon Dioxide BUN Creatinine Glucose POC Glucose 66 L 139 H 176 H Lactic Acid Calcium AST Alkaline Phosphatase CK-MB (CK-2) CK-MB (CK-2) Rel Index Albumin TSH Urine WBC (Auto) Salicylates 01/20/17 01/20/17 01/20/17 11:48 17:42 23:43 WBC RBC Hgb Hct MCV MCH RDW Plt Count Lymph % (Auto) [place] % (Auto) Eos % (Auto) Seg Neutrophils % Seg Neuts % (Manual) Lymphocytes % (Manual) Seg Neutrophils # Seg Neutrophils # Man Lymphocytes # (Manual) APTT POC ABG pH ABG pH POC ABG pCO2 POC ABG pO2 ABG pO2 ABG HCO3 ABG Base Excess ABG Hemoglobin VBG pH Oxyhemoglobin Sodium Potassium Chloride Carbon Dioxide BUN Creatinine Glucose POC Glucose 218 H 132 H 178 H Lactic Acid Calcium AST Alkaline Phosphatase CK-MB (CK-2) CK-MB (CK-2) Rel Index Albumin TSH Urine WBC (Auto) Salicylates 01/21/17 01/21/17 01/21/17 05:34 11:17 23:37 WBC RBC Hgb Hct MCV MCH RDW Plt Count Lymph % (Auto) [place] % (Auto) Eos % (Auto) Seg Neutrophils % Seg Neuts % (Manual) Lymphocytes % (Manual) Seg Neutrophils # Seg Neutrophils # Man Lymphocytes # (Manual) APTT POC ABG pH ABG pH POC ABG pCO2 POC ABG pO2 ABG pO2 ABG HCO3 ABG Base Excess ABG Hemoglobin VBG pH Oxyhemoglobin Sodium Potassium Chloride Carbon Dioxide BUN Creatinine Glucose POC Glucose 106 H 213 H 140 H Lactic Acid Calcium AST Alkaline Phosphatase CK-MB (CK-2) CK-MB (CK-2) Rel Index Albumin TSH Urine WBC (Auto) Salicylates 01/22/17 01/22/17 01/22/17 04:00 04:00 04:58 WBC RBC 3.26 L Hgb 8.3 L Hct 25.5 L MCV 78 L MCH 25 L RDW 17.9 H Plt Count Lymph % (Auto) [place] % (Auto) 7.9 H Eos % (Auto) 6.2 H Seg Neutrophils % Seg Neuts % (Manual) Lymphocytes % (Manual) Seg Neutrophils # Seg Neutrophils # Man Lymphocytes # (Manual) APTT POC ABG pH ABG pH POC ABG pCO2 POC ABG pO2 ABG pO2 ABG HCO3 ABG Base Excess ABG Hemoglobin VBG pH Oxyhemoglobin Sodium Potassium Chloride 95.5 L Carbon Dioxide 31 H D BUN Creatinine Glucose 134 H POC Glucose 146 H Lactic Acid Calcium AST 44 H Alkaline Phosphatase 379 H CK-MB (CK-2) CK-MB (CK-2) Rel Index Albumin 2.7 L TSH Urine WBC (Auto) Salicylates 01/22/17 01/22/17 01/22/17 12:12 18:12 23:39 WBC RBC Hgb Hct MCV MCH RDW Plt Count Lymph % (Auto) [place] % (Auto) Eos % (Auto) Seg Neutrophils % Seg Neuts % (Manual) Lymphocytes % (Manual) Seg Neutrophils # Seg Neutrophils # Man Lymphocytes # (Manual) APTT POC ABG pH ABG pH POC ABG pCO2 POC ABG pO2 ABG pO2 ABG HCO3 ABG Base Excess ABG Hemoglobin VBG pH Oxyhemoglobin Sodium Potassium Chloride Carbon Dioxide BUN Creatinine Glucose POC Glucose 255 H 182 H 134 H Lactic Acid Calcium AST Alkaline Phosphatase CK-MB (CK-2) CK-MB (CK-2) Rel Index Albumin TSH Urine WBC (Auto) Salicylates 01/23/17 01/23/17 01/23/17 04:43 12:12 17:36 WBC RBC Hgb Hct MCV MCH RDW Plt Count Lymph % (Auto) [place] % (Auto) Eos % (Auto) Seg Neutrophils % Seg Neuts % (Manual) Lymphocytes % (Manual) Seg Neutrophils # Seg Neutrophils # Man Lymphocytes # (Manual) APTT POC ABG pH ABG pH POC ABG pCO2 POC ABG pO2 ABG pO2 ABG HCO3 ABG Base Excess ABG Hemoglobin VBG pH Oxyhemoglobin Sodium Potassium Chloride Carbon Dioxide BUN Creatinine Glucose POC Glucose 218 H 128 H 156 H Lactic Acid Calcium AST Alkaline Phosphatase CK-MB (CK-2) CK-MB (CK-2) Rel Index Albumin TSH Urine WBC (Auto) Salicylates 01/24/17 01/24/17 01/24/17 00:08 05:16 11:40 WBC RBC Hgb Hct MCV MCH RDW Plt Count Lymph % (Auto) [place] % (Auto) Eos % (Auto) Seg Neutrophils % Seg Neuts % (Manual) Lymphocytes % (Manual) Seg Neutrophils # Seg Neutrophils # Man Lymphocytes # (Manual) APTT POC ABG pH ABG pH POC ABG pCO2 POC ABG pO2 ABG pO2 ABG HCO3 ABG Base Excess ABG Hemoglobin VBG pH Oxyhemoglobin Sodium Potassium Chloride Carbon Dioxide BUN Creatinine Glucose POC Glucose 129 H 169 H 187 H Lactic Acid Calcium AST Alkaline Phosphatase CK-MB (CK-2) CK-MB (CK-2) Rel Index Albumin TSH Urine WBC (Auto) Salicylates 01/24/17 01/24/17 01/25/17 17:43 23:23 04:56 WBC RBC Hgb Hct MCV MCH RDW Plt Count Lymph % (Auto) [place] % (Auto) Eos % (Auto) Seg Neutrophils % Seg Neuts % (Manual) Lymphocytes % (Manual) Seg Neutrophils # Seg Neutrophils # Man Lymphocytes # (Manual) APTT POC ABG pH ABG pH POC ABG pCO2 POC ABG pO2 ABG pO2 ABG HCO3 ABG Base Excess ABG Hemoglobin VBG pH Oxyhemoglobin Sodium Potassium Chloride Carbon Dioxide BUN Creatinine Glucose POC Glucose 215 H 222 H 210 H Lactic Acid Calcium AST Alkaline Phosphatase CK-MB (CK-2) CK-MB (CK-2) Rel Index Albumin TSH Urine WBC (Auto) Salicylates 01/25/17 01/25/17 01/26/17 11:52 17:37 00:02 WBC RBC Hgb Hct MCV MCH RDW Plt Count Lymph % (Auto) [place] % (Auto) Eos % (Auto) Seg Neutrophils % Seg Neuts % (Manual) Lymphocytes % (Manual) Seg Neutrophils # Seg Neutrophils # Man Lymphocytes # (Manual) APTT POC ABG pH ABG pH POC ABG pCO2 POC ABG pO2 ABG pO2 ABG HCO3 ABG Base Excess ABG Hemoglobin VBG pH Oxyhemoglobin Sodium Potassium Chloride Carbon Dioxide BUN Creatinine Glucose POC Glucose 284 H 218 H 192 H Lactic Acid Calcium AST Alkaline Phosphatase CK-MB (CK-2) CK-MB (CK-2) Rel Index Albumin TSH Urine WBC (Auto) Salicylates 01/26/17 01/26/17 01/26/17 05:33 12:17 17:50 WBC RBC Hgb Hct MCV MCH RDW Plt Count Lymph % (Auto) [place] % (Auto) Eos % (Auto) Seg Neutrophils % Seg Neuts % (Manual) Lymphocytes % (Manual) Seg Neutrophils # Seg Neutrophils # Man Lymphocytes # (Manual) APTT POC ABG pH ABG pH POC ABG pCO2 POC ABG pO2 ABG pO2 ABG HCO3 ABG Base Excess ABG Hemoglobin VBG pH Oxyhemoglobin Sodium Potassium Chloride Carbon Dioxide BUN Creatinine Glucose POC Glucose 199 H 227 H 229 H Lactic Acid Calcium AST Alkaline Phosphatase CK-MB (CK-2) CK-MB (CK-2) Rel Index Albumin TSH Urine WBC (Auto) Salicylates 01/26/17 01/27/17 01/27/17 23:57 05:31 11:42 WBC RBC Hgb Hct MCV MCH RDW Plt Count Lymph % (Auto) [place] % (Auto) Eos % (Auto) Seg Neutrophils % Seg Neuts % (Manual) Lymphocytes % (Manual) Seg Neutrophils # Seg Neutrophils # Man Lymphocytes # (Manual) APTT POC ABG pH ABG pH POC ABG pCO2 POC ABG pO2 ABG pO2 ABG HCO3 ABG Base Excess ABG Hemoglobin VBG pH Oxyhemoglobin Sodium Potassium Chloride Carbon Dioxide BUN Creatinine Glucose POC Glucose 186 H 285 H 260 H Lactic Acid Calcium AST Alkaline Phosphatase CK-MB (CK-2) CK-MB (CK-2) Rel Index Albumin TSH Urine WBC (Auto) Salicylates 01/27/17 01/27/17 01/27/17 17:47 23:58 Unknown WBC 12.1 H RBC 3.28 L Hgb 8.5 L Hct 25.5 L MCV 78 L MCH 26 L RDW 16.8 H Plt Count 601 H Lymph % (Auto) [place] % (Auto) Eos % (Auto) Seg Neutrophils % Seg Neuts % (Manual) Lymphocytes % (Manual) Seg Neutrophils # Seg Neutrophils # Man Lymphocytes # (Manual) APTT POC ABG pH ABG pH POC ABG pCO2 POC ABG pO2 ABG pO2 ABG HCO3 ABG Base Excess ABG Hemoglobin VBG pH Oxyhemoglobin Sodium Potassium Chloride Carbon Dioxide BUN Creatinine Glucose POC Glucose 329 H 225 H Lactic Acid Calcium AST Alkaline Phosphatase CK-MB (CK-2) CK-MB (CK-2) Rel Index Albumin TSH Urine WBC (Auto) Salicylates 01/27/17 01/28/17 01/28/17 Unknown 03:44 03:44 WBC RBC 3.14 L Hgb 8.2 L Hct 24.1 L MCV 77 L MCH 26 L RDW 16.9 H Plt Count 567 H Lymph % (Auto) [place] % (Auto) Eos % (Auto) Seg Neutrophils % Seg Neuts % (Manual) Lymphocytes % (Manual) Seg Neutrophils # Seg Neutrophils # Man Lymphocytes # (Manual) APTT POC ABG pH ABG pH POC ABG pCO2 POC ABG pO2 ABG pO2 ABG HCO3 ABG Base Excess ABG Hemoglobin VBG pH Oxyhemoglobin Sodium 128 L Potassium 5.4 H Chloride 87.5 L Carbon Dioxide BUN 44 H 42 H Creatinine Glucose 250 H 128 H POC Glucose Lactic Acid Calcium AST Alkaline Phosphatase CK-MB (CK-2) CK-MB (CK-2) Rel Index Albumin TSH Urine WBC (Auto) Salicylates 01/28/17 01/28/17 01/28/17 11:43 16:47 17:52 WBC RBC Hgb Hct MCV MCH RDW Plt Count Lymph % (Auto) [place] % (Auto) Eos % (Auto) Seg Neutrophils % Seg Neuts % (Manual) Lymphocytes % (Manual) Seg Neutrophils # Seg Neutrophils # Man Lymphocytes # (Manual) APTT POC ABG pH ABG pH POC ABG pCO2 POC ABG pO2 ABG pO2 ABG HCO3 ABG Base Excess ABG Hemoglobin VBG pH Oxyhemoglobin Sodium Potassium Chloride Carbon Dioxide BUN Creatinine Glucose POC Glucose 351 H 249 H Lactic Acid Calcium AST Alkaline Phosphatase CK-MB (CK-2) CK-MB (CK-2) Rel Index Albumin TSH Urine WBC (Auto) > 182.0 H Salicylates 01/29/17 01/29/17 01/29/17 05:25 05:25 09:32 WBC 13.6 H RBC 3.25 L Hgb 8.3 L Hct 25.1 L MCV 77 L MCH 26 L RDW 16.8 H Plt Count 514 H Lymph % (Auto) [place] % (Auto) Eos % (Auto) Seg Neutrophils % Seg Neuts % (Manual) Lymphocytes % (Manual) Seg Neutrophils # Seg Neutrophils # Man Lymphocytes # (Manual) APTT POC ABG pH ABG pH POC ABG pCO2 POC ABG pO2 ABG pO2 ABG HCO3 ABG Base Excess ABG Hemoglobin VBG pH Oxyhemoglobin Sodium Potassium Chloride 97.8 L Carbon Dioxide BUN 34 H Creatinine Glucose 222 H POC Glucose Lactic Acid 2.50 H* Calcium AST Alkaline Phosphatase CK-MB (CK-2) CK-MB (CK-2) Rel Index Albumin TSH Urine WBC (Auto) Salicylates 01/29/17 01/29/17 01/29/17 11:56 18:11 23:55 WBC RBC Hgb Hct MCV MCH RDW Plt Count Lymph % (Auto) [place] % (Auto) Eos % (Auto) Seg Neutrophils % Seg Neuts % (Manual) Lymphocytes % (Manual) Seg Neutrophils # Seg Neutrophils # Man Lymphocytes # (Manual) APTT POC ABG pH ABG pH POC ABG pCO2 POC ABG pO2 ABG pO2 ABG HCO3 ABG Base Excess ABG Hemoglobin VBG pH Oxyhemoglobin Sodium Potassium Chloride Carbon Dioxide BUN Creatinine Glucose POC Glucose 261 H 215 H 176 H Lactic Acid Calcium AST Alkaline Phosphatase CK-MB (CK-2) CK-MB (CK-2) Rel Index Albumin TSH Urine WBC (Auto) Salicylates 01/30/17 01/30/17 01/30/17 05:31 05:31 05:34 WBC 15.2 H RBC 3.09 L Hgb 7.9 L Hct 23.9 L MCV 77 L MCH 26 L RDW 16.9 H Plt Count 569 H Lymph % (Auto) [place] % (Auto) Eos % (Auto) Seg Neutrophils % Seg Neuts % (Manual) Lymphocytes % (Manual) Seg Neutrophils # Seg Neutrophils # Man Lymphocytes # (Manual) APTT POC ABG pH ABG pH POC ABG pCO2 POC ABG pO2 ABG pO2 ABG HCO3 ABG Base Excess ABG Hemoglobin VBG pH Oxyhemoglobin Sodium Potassium Chloride Carbon Dioxide BUN 24 H Creatinine Glucose 235 H POC Glucose 243 H Lactic Acid Calcium AST Alkaline Phosphatase CK-MB (CK-2) CK-MB (CK-2) Rel Index Albumin TSH Urine WBC (Auto) Salicylates 01/30/17 01/30/17 01/30/17 11:38 17:58 23:29 WBC RBC Hgb Hct MCV MCH RDW Plt Count Lymph % (Auto) [place] % (Auto) Eos % (Auto) Seg Neutrophils % Seg Neuts % (Manual) Lymphocytes % (Manual) Seg Neutrophils # Seg Neutrophils # Man Lymphocytes # (Manual) APTT POC ABG pH ABG pH POC ABG pCO2 POC ABG pO2 ABG pO2 ABG HCO3 ABG Base Excess ABG Hemoglobin VBG pH Oxyhemoglobin Sodium Potassium Chloride Carbon Dioxide BUN Creatinine Glucose POC Glucose 298 H 208 H 245 H Lactic Acid Calcium AST Alkaline Phosphatase CK-MB (CK-2) CK-MB (CK-2) Rel Index Albumin TSH Urine WBC (Auto) Salicylates 01/31/17 01/31/17 01/31/17 04:39 04:39 05:57 WBC 11.4 H RBC 3.22 L Hgb 8.2 L Hct 24.9 L MCV 78 L MCH 25 L RDW 17.2 H Plt Count 576 H Lymph % (Auto) [place] % (Auto) Eos % (Auto) Seg Neutrophils % Seg Neuts % (Manual) Lymphocytes % (Manual) Seg Neutrophils # Seg Neutrophils # Man Lymphocytes # (Manual) APTT POC ABG pH ABG pH POC ABG pCO2 POC ABG pO2 ABG pO2 ABG HCO3 ABG Base Excess ABG Hemoglobin VBG pH Oxyhemoglobin Sodium Potassium Chloride Carbon Dioxide BUN Creatinine 0.7 L Glucose 223 H POC Glucose 264 H Lactic Acid Calcium AST Alkaline Phosphatase CK-MB (CK-2) CK-MB (CK-2) Rel Index Albumin TSH Urine WBC (Auto) Salicylates 01/31/17 01/31/17 01/31/17 12:23 17:41 18:55 WBC RBC Hgb Hct MCV MCH RDW Plt Count Lymph % (Auto) [place] % (Auto) Eos % (Auto) Seg Neutrophils % Seg Neuts % (Manual) Lymphocytes % (Manual) Seg Neutrophils # Seg Neutrophils # Man Lymphocytes # (Manual) APTT POC ABG pH ABG pH POC ABG pCO2 32.8 L POC ABG pO2 ABG pO2 ABG HCO3 ABG Base Excess ABG Hemoglobin VBG pH Oxyhemoglobin Sodium Potassium Chloride Carbon Dioxide BUN Creatinine Glucose POC Glucose 252 H 208 H Lactic Acid Calcium AST Alkaline Phosphatase CK-MB (CK-2) CK-MB (CK-2) Rel Index Albumin TSH Urine WBC (Auto) Salicylates 01/31/17 02/01/17 02/01/17 22:59 03:38 03:38 WBC RBC 2.81 L Hgb 7.4 L Hct 22.1 L MCV 79 L MCH 27 L RDW 17.0 H Plt Count 540 H Lymph % (Auto) [place] % (Auto) Eos % (Auto) Seg Neutrophils % Seg Neuts % (Manual) Lymphocytes % (Manual) Seg Neutrophils # Seg Neutrophils # Man Lymphocytes # (Manual) APTT POC ABG pH ABG pH POC ABG pCO2 POC ABG pO2 ABG pO2 ABG HCO3 ABG Base Excess ABG Hemoglobin VBG pH Oxyhemoglobin Sodium Potassium Chloride Carbon Dioxide 21 L BUN Creatinine 0.7 L Glucose POC Glucose 40 L Lactic Acid Calcium AST Alkaline Phosphatase CK-MB (CK-2) CK-MB (CK-2) Rel Index Albumin TSH Urine WBC (Auto) Salicylates 02/01/17 02/01/17 02/01/17 05:17 12:19 16:44 WBC RBC Hgb Hct MCV MCH RDW Plt Count Lymph % (Auto) [place] % (Auto) Eos % (Auto) Seg Neutrophils % Seg Neuts % (Manual) Lymphocytes % (Manual) Seg Neutrophils # Seg Neutrophils # Man Lymphocytes # (Manual) APTT POC ABG pH ABG pH POC ABG pCO2 POC ABG pO2 ABG pO2 ABG HCO3 ABG Base Excess ABG Hemoglobin VBG pH Oxyhemoglobin Sodium Potassium Chloride Carbon Dioxide BUN Creatinine Glucose POC Glucose 140 H 213 H 172 H Lactic Acid Calcium AST Alkaline Phosphatase CK-MB (CK-2) CK-MB (CK-2) Rel Index Albumin TSH Urine WBC (Auto) Salicylates 02/01/17 02/02/17 02/02/17 23:59 05:14 11:24 WBC RBC Hgb Hct MCV MCH RDW Plt Count Lymph % (Auto) [place] % (Auto) Eos % (Auto) Seg Neutrophils % Seg Neuts % (Manual) Lymphocytes % (Manual) Seg Neutrophils # Seg Neutrophils # Man Lymphocytes # (Manual) APTT POC ABG pH ABG pH POC ABG pCO2 POC ABG pO2 ABG pO2 ABG HCO3 ABG Base Excess ABG Hemoglobin VBG pH Oxyhemoglobin Sodium Potassium Chloride Carbon Dioxide BUN Creatinine Glucose POC Glucose 181 H 194 H 209 H Lactic Acid Calcium AST Alkaline Phosphatase CK-MB (CK-2) CK-MB (CK-2) Rel Index Albumin TSH Urine WBC (Auto) Salicylates 02/02/17 02/02/17 02/02/17 11:46 11:46 17:47 WBC RBC 2.94 L Hgb 7.5 L Hct 23.0 L MCV 78 L MCH 25 L RDW 16.9 H Plt Count 520 H Lymph % (Auto) [place] % (Auto) Eos % (Auto) Seg Neutrophils % Seg Neuts % (Manual) Lymphocytes % (Manual) Seg Neutrophils # Seg Neutrophils # Man Lymphocytes # (Manual) APTT POC ABG pH ABG pH POC ABG pCO2 POC ABG pO2 ABG pO2 ABG HCO3 ABG Base Excess ABG Hemoglobin VBG pH Oxyhemoglobin Sodium Potassium Chloride Carbon Dioxide BUN Creatinine 0.6 L Glucose 189 H POC Glucose 147 H Lactic Acid Calcium 8.1 L AST Alkaline Phosphatase CK-MB (CK-2) CK-MB (CK-2) Rel Index Albumin TSH Urine WBC (Auto) Salicylates 02/02/17 02/03/17 02/03/17 23:32 05:53 11:19 WBC RBC Hgb Hct MCV MCH RDW Plt Count Lymph % (Auto) [place] % (Auto) Eos % (Auto) Seg Neutrophils % Seg Neuts % (Manual) Lymphocytes % (Manual) Seg Neutrophils # Seg Neutrophils # Man Lymphocytes # (Manual) APTT POC ABG pH ABG pH POC ABG pCO2 POC ABG pO2 ABG pO2 ABG HCO3 ABG Base Excess ABG Hemoglobin VBG pH Oxyhemoglobin Sodium Potassium Chloride Carbon Dioxide BUN Creatinine Glucose POC Glucose 176 H 224 H 228 H Lactic Acid Calcium AST Alkaline Phosphatase CK-MB (CK-2) CK-MB (CK-2) Rel Index Albumin TSH Urine WBC (Auto) Salicylates 02/03/17 02/03/17 02/04/17 16:59 23:38 05:45 WBC RBC Hgb Hct MCV MCH RDW Plt Count Lymph % (Auto) [place] % (Auto) Eos % (Auto) Seg Neutrophils % Seg Neuts % (Manual) Lymphocytes % (Manual) Seg Neutrophils # Seg Neutrophils # Man Lymphocytes # (Manual) APTT POC ABG pH ABG pH POC ABG pCO2 POC ABG pO2 ABG pO2 ABG HCO3 ABG Base Excess ABG Hemoglobin VBG pH Oxyhemoglobin Sodium Potassium Chloride Carbon Dioxide BUN Creatinine Glucose POC Glucose 189 H 191 H 251 H Lactic Acid Calcium AST Alkaline Phosphatase CK-MB (CK-2) CK-MB (CK-2) Rel Index Albumin TSH Urine WBC (Auto) Salicylates 02/04/17 02/04/17 02/05/17 11:20 17:20 00:17 WBC RBC Hgb Hct MCV MCH RDW Plt Count Lymph % (Auto) [place] % (Auto) Eos % (Auto) Seg Neutrophils % Seg Neuts % (Manual) Lymphocytes % (Manual) Seg Neutrophils # Seg Neutrophils # Man Lymphocytes # (Manual) APTT POC ABG pH ABG pH POC ABG pCO2 POC ABG pO2 ABG pO2 ABG HCO3 ABG Base Excess ABG Hemoglobin VBG pH Oxyhemoglobin Sodium Potassium Chloride Carbon Dioxide BUN Creatinine Glucose POC Glucose 243 H 163 H 200 H Lactic Acid Calcium AST Alkaline Phosphatase CK-MB (CK-2) CK-MB (CK-2) Rel Index Albumin TSH Urine WBC (Auto) Salicylates 02/05/17 02/05/17 02/05/17 05:38 12:38 16:29 WBC RBC Hgb Hct MCV MCH RDW Plt Count Lymph % (Auto) [place] % (Auto) Eos % (Auto) Seg Neutrophils % Seg Neuts % (Manual) Lymphocytes % (Manual) Seg Neutrophils # Seg Neutrophils # Man Lymphocytes # (Manual) APTT POC ABG pH ABG pH POC ABG pCO2 POC ABG pO2 ABG pO2 ABG HCO3 ABG Base Excess ABG Hemoglobin VBG pH Oxyhemoglobin Sodium Potassium Chloride Carbon Dioxide BUN Creatinine Glucose POC Glucose 248 H 241 H 257 H Lactic Acid Calcium AST Alkaline Phosphatase CK-MB (CK-2) CK-MB (CK-2) Rel Index Albumin TSH Urine WBC (Auto) Salicylates 02/05/17 02/06/17 02/06/17 23:56 05:30 11:50 WBC RBC Hgb Hct MCV MCH RDW Plt Count Lymph % (Auto) [place] % (Auto) Eos % (Auto) Seg Neutrophils % Seg Neuts % (Manual) Lymphocytes % (Manual) Seg Neutrophils # Seg Neutrophils # Man Lymphocytes # (Manual) APTT POC ABG pH ABG pH POC ABG pCO2 POC ABG pO2 ABG pO2 ABG HCO3 ABG Base Excess ABG Hemoglobin VBG pH Oxyhemoglobin Sodium Potassium Chloride Carbon Dioxide BUN Creatinine Glucose POC Glucose 258 H 120 H 254 H Lactic Acid Calcium AST Alkaline Phosphatase CK-MB (CK-2) CK-MB (CK-2) Rel Index Albumin TSH Urine WBC (Auto) Salicylates 02/06/17 02/06/17 02/07/17 17:11 23:50 05:22 WBC RBC Hgb Hct MCV MCH RDW Plt Count Lymph % (Auto) [place] % (Auto) Eos % (Auto) Seg Neutrophils % Seg Neuts % (Manual) Lymphocytes % (Manual) Seg Neutrophils # Seg Neutrophils # Man Lymphocytes # (Manual) APTT POC ABG pH ABG pH POC ABG pCO2 POC ABG pO2 ABG pO2 ABG HCO3 ABG Base Excess ABG Hemoglobin VBG pH Oxyhemoglobin Sodium Potassium Chloride Carbon Dioxide BUN Creatinine Glucose POC Glucose 149 H 240 H 258 H Lactic Acid Calcium AST Alkaline Phosphatase CK-MB (CK-2) CK-MB (CK-2) Rel Index Albumin TSH Urine WBC (Auto) Salicylates 02/07/17 02/07/17 02/07/17 11:15 18:33 23:59 WBC RBC Hgb Hct MCV MCH RDW Plt Count Lymph % (Auto) [place] % (Auto) Eos % (Auto) Seg Neutrophils % Seg Neuts % (Manual) Lymphocytes % (Manual) Seg Neutrophils # Seg Neutrophils # Man Lymphocytes # (Manual) APTT POC ABG pH ABG pH POC ABG pCO2 POC ABG pO2 ABG pO2 ABG HCO3 ABG Base Excess ABG Hemoglobin VBG pH Oxyhemoglobin Sodium Potassium Chloride Carbon Dioxide BUN Creatinine Glucose POC Glucose 239 H 176 H 186 H Lactic Acid Calcium AST Alkaline Phosphatase CK-MB (CK-2) CK-MB (CK-2) Rel Index Albumin TSH Urine WBC (Auto) Salicylates 02/08/17 02/08/17 02/08/17 06:15 11:55 16:55 WBC RBC Hgb Hct MCV MCH RDW Plt Count Lymph % (Auto) [place] % (Auto) Eos % (Auto) Seg Neutrophils % Seg Neuts % (Manual) Lymphocytes % (Manual) Seg Neutrophils # Seg Neutrophils # Man Lymphocytes # (Manual) APTT POC ABG pH ABG pH POC ABG pCO2 POC ABG pO2 ABG pO2 ABG HCO3 ABG Base Excess ABG Hemoglobin VBG pH Oxyhemoglobin Sodium Potassium Chloride Carbon Dioxide BUN Creatinine Glucose POC Glucose 195 H 129 H 246 H Lactic Acid Calcium AST Alkaline Phosphatase CK-MB (CK-2) CK-MB (CK-2) Rel Index Albumin TSH Urine WBC (Auto) Salicylates 02/08/17 02/09/17 02/09/17 23:51 05:51 07:24 WBC 14.7 H RBC 3.39 L Hgb 8.9 L Hct 26.4 L MCV 78 L MCH 26 L RDW 18.4 H Plt Count 670 H Lymph % (Auto) 11.8 L [place] % (Auto) Eos % (Auto) Seg Neutrophils % 81.2 H Seg Neuts % (Manual) Lymphocytes % (Manual) Seg Neutrophils # 11.9 H Seg Neutrophils # Man Lymphocytes # (Manual) APTT POC ABG pH ABG pH POC ABG pCO2 POC ABG pO2 ABG pO2 ABG HCO3 ABG Base Excess ABG Hemoglobin VBG pH Oxyhemoglobin Sodium Potassium Chloride Carbon Dioxide BUN Creatinine Glucose POC Glucose 262 H 295 H Lactic Acid Calcium AST Alkaline Phosphatase CK-MB (CK-2) CK-MB (CK-2) Rel Index Albumin TSH Urine WBC (Auto) Salicylates 02/09/17 02/09/17 02/09/17 07:24 12:08 18:39 WBC RBC Hgb Hct MCV MCH RDW Plt Count Lymph % (Auto) [place] % (Auto) Eos % (Auto) Seg Neutrophils % Seg Neuts % (Manual) Lymphocytes % (Manual) Seg Neutrophils # Seg Neutrophils # Man Lymphocytes # (Manual) APTT POC ABG pH ABG pH POC ABG pCO2 POC ABG pO2 ABG pO2 ABG HCO3 ABG Base Excess ABG Hemoglobin VBG pH Oxyhemoglobin Sodium Potassium Chloride 95.5 L Carbon Dioxide BUN 52 H Creatinine Glucose 277 H POC Glucose 236 H 151 H Lactic Acid Calcium AST Alkaline Phosphatase CK-MB (CK-2) CK-MB (CK-2) Rel Index Albumin TSH Urine WBC (Auto) Salicylates 02/10/17 02/10/17 02/10/17 00:01 05:44 11:21 WBC RBC Hgb Hct MCV MCH RDW Plt Count Lymph % (Auto) [place] % (Auto) Eos % (Auto) Seg Neutrophils % Seg Neuts % (Manual) Lymphocytes % (Manual) Seg Neutrophils # Seg Neutrophils # Man Lymphocytes # (Manual) APTT POC ABG pH ABG pH POC ABG pCO2 POC ABG pO2 ABG pO2 ABG HCO3 ABG Base Excess ABG Hemoglobin VBG pH Oxyhemoglobin Sodium Potassium Chloride Carbon Dioxide BUN Creatinine Glucose POC Glucose 210 H 201 H 233 H Lactic Acid Calcium AST Alkaline Phosphatase CK-MB (CK-2) CK-MB (CK-2) Rel Index Albumin TSH Urine WBC (Auto) Salicylates 02/10/17 02/10/17 02/11/17 17:29 23:56 05:24 WBC RBC Hgb Hct MCV MCH RDW Plt Count Lymph % (Auto) [place] % (Auto) Eos % (Auto) Seg Neutrophils % Seg Neuts % (Manual) Lymphocytes % (Manual) Seg Neutrophils # Seg Neutrophils # Man Lymphocytes # (Manual) APTT POC ABG pH ABG pH POC ABG pCO2 POC ABG pO2 ABG pO2 ABG HCO3 ABG Base Excess ABG Hemoglobin VBG pH Oxyhemoglobin Sodium Potassium Chloride Carbon Dioxide BUN Creatinine Glucose POC Glucose 167 H 191 H 135 H Lactic Acid Calcium AST Alkaline Phosphatase CK-MB (CK-2) CK-MB (CK-2) Rel Index Albumin TSH Urine WBC (Auto) Salicylates 02/11/17 02/11/17 02/11/17 12:25 17:03 23:59 WBC RBC Hgb Hct MCV MCH RDW Plt Count Lymph % (Auto) [place] % (Auto) Eos % (Auto) Seg Neutrophils % Seg Neuts % (Manual) Lymphocytes % (Manual) Seg Neutrophils # Seg Neutrophils # Man Lymphocytes # (Manual) APTT POC ABG pH ABG pH POC ABG pCO2 POC ABG pO2 ABG pO2 ABG HCO3 ABG Base Excess ABG Hemoglobin VBG pH Oxyhemoglobin Sodium Potassium Chloride Carbon Dioxide BUN Creatinine Glucose POC Glucose 275 H 172 H 215 H Lactic Acid Calcium AST Alkaline Phosphatase CK-MB (CK-2) CK-MB (CK-2) Rel Index Albumin TSH Urine WBC (Auto) Salicylates 02/12/17 02/12/17 02/12/17 05:39 11:33 17:55 WBC RBC Hgb Hct MCV MCH RDW Plt Count Lymph % (Auto) [place] % (Auto) Eos % (Auto) Seg Neutrophils % Seg Neuts % (Manual) Lymphocytes % (Manual) Seg Neutrophils # Seg Neutrophils # Man Lymphocytes # (Manual) APTT POC ABG pH ABG pH POC ABG pCO2 POC ABG pO2 ABG pO2 ABG HCO3 ABG Base Excess ABG Hemoglobin VBG pH Oxyhemoglobin Sodium Potassium Chloride Carbon Dioxide BUN Creatinine Glucose POC Glucose 261 H 217 H 172 H Lactic Acid Calcium AST Alkaline Phosphatase CK-MB (CK-2) CK-MB (CK-2) Rel Index Albumin TSH Urine WBC (Auto) Salicylates 02/13/17 02/13/17 02/13/17 00:25 06:46 11:26 WBC RBC Hgb Hct MCV MCH RDW Plt Count Lymph % (Auto) [place] % (Auto) Eos % (Auto) Seg Neutrophils % Seg Neuts % (Manual) Lymphocytes % (Manual) Seg Neutrophils # Seg Neutrophils # Man Lymphocytes # (Manual) APTT POC ABG pH ABG pH POC ABG pCO2 POC ABG pO2 ABG pO2 ABG HCO3 ABG Base Excess ABG Hemoglobin VBG pH Oxyhemoglobin Sodium Potassium Chloride Carbon Dioxide BUN Creatinine Glucose POC Glucose 207 H 219 H 231 H Lactic Acid Calcium AST Alkaline Phosphatase CK-MB (CK-2) CK-MB (CK-2) Rel Index Albumin TSH Urine WBC (Auto) Salicylates 02/13/17 02/13/17 02/14/17 17:12 23:44 05:44 WBC RBC Hgb Hct MCV MCH RDW Plt Count Lymph % (Auto) [place] % (Auto) Eos % (Auto) Seg Neutrophils % Seg Neuts % (Manual) Lymphocytes % (Manual) Seg Neutrophils # Seg Neutrophils # Man Lymphocytes # (Manual) APTT POC ABG pH ABG pH POC ABG pCO2 POC ABG pO2 ABG pO2 ABG HCO3 ABG Base Excess ABG Hemoglobin VBG pH Oxyhemoglobin Sodium Potassium Chloride Carbon Dioxide BUN Creatinine Glucose POC Glucose 190 H 256 H 184 H Lactic Acid Calcium AST Alkaline Phosphatase CK-MB (CK-2) CK-MB (CK-2) Rel Index Albumin TSH Urine WBC (Auto) Salicylates 02/14/17 02/14/17 02/14/17 12:21 17:57 23:18 WBC RBC Hgb Hct MCV MCH RDW Plt Count Lymph % (Auto) [place] % (Auto) Eos % (Auto) Seg Neutrophils % Seg Neuts % (Manual) Lymphocytes % (Manual) Seg Neutrophils # Seg Neutrophils # Man Lymphocytes # (Manual) APTT POC ABG pH ABG pH POC ABG pCO2 POC ABG pO2 ABG pO2 ABG HCO3 ABG Base Excess ABG Hemoglobin VBG pH Oxyhemoglobin Sodium Potassium Chloride Carbon Dioxide BUN Creatinine Glucose POC Glucose 233 H 155 H 165 H Lactic Acid Calcium AST Alkaline Phosphatase CK-MB (CK-2) CK-MB (CK-2) Rel Index Albumin TSH Urine WBC (Auto) Salicylates 02/15/17 02/15/17 02/15/17 05:33 11:45 17:20 WBC RBC Hgb Hct MCV MCH RDW Plt Count Lymph % (Auto) [place] % (Auto) Eos % (Auto) Seg Neutrophils % Seg Neuts % (Manual) Lymphocytes % (Manual) Seg Neutrophils # Seg Neutrophils # Man Lymphocytes # (Manual) APTT POC ABG pH ABG pH POC ABG pCO2 POC ABG pO2 ABG pO2 ABG HCO3 ABG Base Excess ABG Hemoglobin VBG pH Oxyhemoglobin Sodium Potassium Chloride Carbon Dioxide BUN Creatinine Glucose POC Glucose 239 H 130 H 189 H Lactic Acid Calcium AST Alkaline Phosphatase CK-MB (CK-2) CK-MB (CK-2) Rel Index Albumin TSH Urine WBC (Auto) Salicylates 02/16/17 02/16/17 02/16/17 00:14 05:09 12:31 WBC RBC Hgb Hct MCV MCH RDW Plt Count Lymph % (Auto) [place] % (Auto) Eos % (Auto) Seg Neutrophils % Seg Neuts % (Manual) Lymphocytes % (Manual) Seg Neutrophils # Seg Neutrophils # Man Lymphocytes # (Manual) APTT POC ABG pH ABG pH POC ABG pCO2 POC ABG pO2 ABG pO2 ABG HCO3 ABG Base Excess ABG Hemoglobin VBG pH Oxyhemoglobin Sodium Potassium Chloride Carbon Dioxide BUN Creatinine Glucose POC Glucose 197 H 226 H 178 H Lactic Acid Calcium AST Alkaline Phosphatase CK-MB (CK-2) CK-MB (CK-2) Rel Index Albumin TSH Urine WBC (Auto) Salicylates 02/16/17 02/16/17 02/17/17 16:35 23:49 05:37 WBC RBC Hgb Hct MCV MCH RDW Plt Count Lymph % (Auto) [place] % (Auto) Eos % (Auto) Seg Neutrophils % Seg Neuts % (Manual) Lymphocytes % (Manual) Seg Neutrophils # Seg Neutrophils # Man Lymphocytes # (Manual) APTT POC ABG pH ABG pH POC ABG pCO2 POC ABG pO2 ABG pO2 ABG HCO3 ABG Base Excess ABG Hemoglobin VBG pH Oxyhemoglobin Sodium Potassium Chloride Carbon Dioxide BUN Creatinine Glucose POC Glucose 174 H 62 L 153 H Lactic Acid Calcium AST Alkaline Phosphatase CK-MB (CK-2) CK-MB (CK-2) Rel Index Albumin TSH Urine WBC (Auto) Salicylates 02/17/17 02/17/17 02/17/17 11:39 17:02 22:24 WBC RBC Hgb Hct MCV MCH RDW Plt Count Lymph % (Auto) [place] % (Auto) Eos % (Auto) Seg Neutrophils % Seg Neuts % (Manual) Lymphocytes % (Manual) Seg Neutrophils # Seg Neutrophils # Man Lymphocytes # (Manual) APTT POC ABG pH ABG pH POC ABG pCO2 POC ABG pO2 ABG pO2 ABG HCO3 ABG Base Excess ABG Hemoglobin VBG pH Oxyhemoglobin Sodium Potassium Chloride Carbon Dioxide BUN Creatinine Glucose POC Glucose 231 H 112 H 116 H Lactic Acid Calcium AST Alkaline Phosphatase CK-MB (CK-2) CK-MB (CK-2) Rel Index Albumin TSH Urine WBC (Auto) Salicylates 02/18/17 02/19/17 02/19/17 15:34 05:09 07:57 WBC RBC Hgb Hct MCV MCH RDW Plt Count Lymph % (Auto) [place] % (Auto) Eos % (Auto) Seg Neutrophils % Seg Neuts % (Manual) Lymphocytes % (Manual) Seg Neutrophils # Seg Neutrophils # Man Lymphocytes # (Manual) APTT POC ABG pH ABG pH POC ABG pCO2 POC ABG pO2 ABG pO2 ABG HCO3 ABG Base Excess ABG Hemoglobin VBG pH Oxyhemoglobin Sodium Potassium Chloride Carbon Dioxide BUN Creatinine Glucose POC Glucose 215 H 218 H 283 H Lactic Acid Calcium AST Alkaline Phosphatase CK-MB (CK-2) CK-MB (CK-2) Rel Index Albumin TSH Urine WBC (Auto) Salicylates 02/19/17 02/19/17 02/20/17 14:49 22:10 05:10 WBC RBC Hgb Hct MCV MCH RDW Plt Count Lymph % (Auto) [place] % (Auto) Eos % (Auto) Seg Neutrophils % Seg Neuts % (Manual) Lymphocytes % (Manual) Seg Neutrophils # Seg Neutrophils # Man Lymphocytes # (Manual) APTT POC ABG pH ABG pH POC ABG pCO2 POC ABG pO2 ABG pO2 ABG HCO3 ABG Base Excess ABG Hemoglobin VBG pH Oxyhemoglobin Sodium Potassium Chloride Carbon Dioxide BUN Creatinine Glucose POC Glucose 290 H 169 H 209 H Lactic Acid Calcium AST Alkaline Phosphatase CK-MB (CK-2) CK-MB (CK-2) Rel Index Albumin TSH Urine WBC (Auto) Salicylates 02/20/17 02/20/17 02/21/17 15:05 21:52 02:00 WBC RBC Hgb Hct MCV MCH RDW Plt Count Lymph % (Auto) [place] % (Auto) Eos % (Auto) Seg Neutrophils % Seg Neuts % (Manual) Lymphocytes % (Manual) Seg Neutrophils # Seg Neutrophils # Man Lymphocytes # (Manual) APTT POC ABG pH ABG pH POC ABG pCO2 POC ABG pO2 ABG pO2 ABG HCO3 ABG Base Excess ABG Hemoglobin VBG pH Oxyhemoglobin Sodium Potassium Chloride Carbon Dioxide BUN Creatinine Glucose POC Glucose 172 H 209 H 216 H Lactic Acid Calcium AST Alkaline Phosphatase CK-MB (CK-2) CK-MB (CK-2) Rel Index Albumin TSH Urine WBC (Auto) Salicylates 02/21/17 02/21/17 02/21/17 04:54 14:43 17:47 WBC RBC Hgb Hct MCV MCH RDW Plt Count Lymph % (Auto) [place] % (Auto) Eos % (Auto) Seg Neutrophils % Seg Neuts % (Manual) Lymphocytes % (Manual) Seg Neutrophils # Seg Neutrophils # Man Lymphocytes # (Manual) APTT POC ABG pH ABG pH POC ABG pCO2 POC ABG pO2 ABG pO2 ABG HCO3 ABG Base Excess ABG Hemoglobin VBG pH Oxyhemoglobin Sodium Potassium Chloride Carbon Dioxide BUN Creatinine Glucose POC Glucose 227 H 290 H 220 H Lactic Acid Calcium AST Alkaline Phosphatase CK-MB (CK-2) CK-MB (CK-2) Rel Index Albumin TSH Urine WBC (Auto) Salicylates 02/21/17 02/22/17 02/22/17 22:02 04:52 15:25 WBC RBC Hgb Hct MCV MCH RDW Plt Count Lymph % (Auto) [place] % (Auto) Eos % (Auto) Seg Neutrophils % Seg Neuts % (Manual) Lymphocytes % (Manual) Seg Neutrophils # Seg Neutrophils # Man Lymphocytes # (Manual) APTT POC ABG pH ABG pH POC ABG pCO2 POC ABG pO2 ABG pO2 ABG HCO3 ABG Base Excess ABG Hemoglobin VBG pH Oxyhemoglobin Sodium Potassium Chloride Carbon Dioxide BUN Creatinine Glucose POC Glucose 246 H 212 H 236 H Lactic Acid Calcium AST Alkaline Phosphatase CK-MB (CK-2) CK-MB (CK-2) Rel Index Albumin TSH Urine WBC (Auto) Salicylates 02/22/17 02/23/17 02/23/17 21:33 06:04 10:00 WBC RBC Hgb Hct MCV MCH RDW Plt Count Lymph % (Auto) [place] % (Auto) Eos % (Auto) Seg Neutrophils % Seg Neuts % (Manual) Lymphocytes % (Manual) Seg Neutrophils # Seg Neutrophils # Man Lymphocytes # (Manual) APTT POC ABG pH ABG pH POC ABG pCO2 POC ABG pO2 ABG pO2 ABG HCO3 ABG Base Excess ABG Hemoglobin VBG pH Oxyhemoglobin Sodium Potassium Chloride Carbon Dioxide BUN Creatinine Glucose POC Glucose 255 H 208 H 174 H Lactic Acid Calcium AST Alkaline Phosphatase CK-MB (CK-2) CK-MB (CK-2) Rel Index Albumin TSH Urine WBC (Auto) Salicylates 02/23/17 02/23/17 02/23/17 12:52 17:15 21:51 WBC RBC Hgb Hct MCV MCH RDW Plt Count Lymph % (Auto) [place] % (Auto) Eos % (Auto) Seg Neutrophils % Seg Neuts % (Manual) Lymphocytes % (Manual) Seg Neutrophils # Seg Neutrophils # Man Lymphocytes # (Manual) APTT POC ABG pH ABG pH POC ABG pCO2 POC ABG pO2 ABG pO2 ABG HCO3 ABG Base Excess ABG Hemoglobin VBG pH Oxyhemoglobin Sodium Potassium Chloride Carbon Dioxide BUN Creatinine Glucose POC Glucose 203 H 269 H 205 H Lactic Acid Calcium AST Alkaline Phosphatase CK-MB (CK-2) CK-MB (CK-2) Rel Index Albumin TSH Urine WBC (Auto) Salicylates 02/24/17 02/24/17 02/24/17 10:23 17:45 21:24 WBC RBC Hgb Hct MCV MCH RDW Plt Count Lymph % (Auto) [place] % (Auto) Eos % (Auto) Seg Neutrophils % Seg Neuts % (Manual) Lymphocytes % (Manual) Seg Neutrophils # Seg Neutrophils # Man Lymphocytes # (Manual) APTT POC ABG pH ABG pH POC ABG pCO2 POC ABG pO2 ABG pO2 ABG HCO3 ABG Base Excess ABG Hemoglobin VBG pH Oxyhemoglobin Sodium Potassium Chloride Carbon Dioxide BUN Creatinine Glucose POC Glucose 280 H 239 H 254 H Lactic Acid Calcium AST Alkaline Phosphatase CK-MB (CK-2) CK-MB (CK-2) Rel Index Albumin TSH Urine WBC (Auto) Salicylates 02/25/17 02/25/17 02/25/17 02:12 05:17 14:32 WBC RBC Hgb Hct MCV MCH RDW Plt Count Lymph % (Auto) [place] % (Auto) Eos % (Auto) Seg Neutrophils % Seg Neuts % (Manual) Lymphocytes % (Manual) Seg Neutrophils # Seg Neutrophils # Man Lymphocytes # (Manual) APTT POC ABG pH ABG pH POC ABG pCO2 POC ABG pO2 ABG pO2 ABG HCO3 ABG Base Excess ABG Hemoglobin VBG pH Oxyhemoglobin Sodium Potassium Chloride Carbon Dioxide BUN Creatinine Glucose POC Glucose 296 H 332 H 353 H Lactic Acid Calcium AST Alkaline Phosphatase CK-MB (CK-2) CK-MB (CK-2) Rel Index Albumin TSH Urine WBC (Auto) Salicylates 02/25/17 02/26/17 02/26/17 22:14 00:37 05:52 WBC RBC Hgb Hct MCV MCH RDW Plt Count Lymph % (Auto) [place] % (Auto) Eos % (Auto) Seg Neutrophils % Seg Neuts % (Manual) Lymphocytes % (Manual) Seg Neutrophils # Seg Neutrophils # Man Lymphocytes # (Manual) APTT POC ABG pH ABG pH POC ABG pCO2 POC ABG pO2 ABG pO2 ABG HCO3 ABG Base Excess ABG Hemoglobin VBG pH Oxyhemoglobin Sodium Potassium Chloride Carbon Dioxide BUN Creatinine Glucose POC Glucose 201 H 233 H 269 H Lactic Acid Calcium AST Alkaline Phosphatase CK-MB (CK-2) CK-MB (CK-2) Rel Index Albumin TSH Urine WBC (Auto) Salicylates 02/26/17 02/26/17 02/26/17 11:48 13:49 21:26 WBC RBC Hgb Hct MCV MCH RDW Plt Count Lymph % (Auto) [place] % (Auto) Eos % (Auto) Seg Neutrophils % Seg Neuts % (Manual) Lymphocytes % (Manual) Seg Neutrophils # Seg Neutrophils # Man Lymphocytes # (Manual) APTT POC ABG pH ABG pH POC ABG pCO2 POC ABG pO2 ABG pO2 ABG HCO3 ABG Base Excess ABG Hemoglobin VBG pH Oxyhemoglobin Sodium Potassium Chloride Carbon Dioxide BUN Creatinine Glucose POC Glucose 333 H 322 H 244 H Lactic Acid Calcium AST Alkaline Phosphatase CK-MB (CK-2) CK-MB (CK-2) Rel Index Albumin TSH Urine WBC (Auto) Salicylates 02/27/17 02/27/17 02/27/17 05:27 13:51 21:48 WBC RBC Hgb Hct MCV MCH RDW Plt Count Lymph % (Auto) [place] % (Auto) Eos % (Auto) Seg Neutrophils % Seg Neuts % (Manual) Lymphocytes % (Manual) Seg Neutrophils # Seg Neutrophils # Man Lymphocytes # (Manual) APTT POC ABG pH ABG pH POC ABG pCO2 POC ABG pO2 ABG pO2 ABG HCO3 ABG Base Excess ABG Hemoglobin VBG pH Oxyhemoglobin Sodium Potassium Chloride Carbon Dioxide BUN Creatinine Glucose POC Glucose 217 H 239 H 254 H Lactic Acid Calcium AST Alkaline Phosphatase CK-MB (CK-2) CK-MB (CK-2) Rel Index Albumin TSH Urine WBC (Auto) Salicylates 02/28/17 02/28/17 02/28/17 05:38 11:00 19:44 WBC RBC Hgb Hct MCV MCH RDW Plt Count Lymph % (Auto) [place] % (Auto) Eos % (Auto) Seg Neutrophils % Seg Neuts % (Manual) Lymphocytes % (Manual) Seg Neutrophils # Seg Neutrophils # Man Lymphocytes # (Manual) APTT POC ABG pH ABG pH POC ABG pCO2 POC ABG pO2 ABG pO2 ABG HCO3 ABG Base Excess ABG Hemoglobin VBG pH Oxyhemoglobin Sodium Potassium Chloride Carbon Dioxide BUN Creatinine Glucose POC Glucose 325 H 203 H 116 H Lactic Acid Calcium AST Alkaline Phosphatase CK-MB (CK-2) CK-MB (CK-2) Rel Index Albumin TSH Urine WBC (Auto) Salicylates 03/01/17 03/01/17 03/01/17 00:08 05:31 12:17 WBC RBC Hgb Hct MCV MCH RDW Plt Count Lymph % (Auto) [place] % (Auto) Eos % (Auto) Seg Neutrophils % Seg Neuts % (Manual) Lymphocytes % (Manual) Seg Neutrophils # Seg Neutrophils # Man Lymphocytes # (Manual) APTT POC ABG pH ABG pH POC ABG pCO2 POC ABG pO2 ABG pO2 ABG HCO3 ABG Base Excess ABG Hemoglobin VBG pH Oxyhemoglobin Sodium Potassium Chloride Carbon Dioxide BUN Creatinine Glucose POC Glucose 202 H 183 H 184 H Lactic Acid Calcium AST Alkaline Phosphatase CK-MB (CK-2) CK-MB (CK-2) Rel Index Albumin TSH Urine WBC (Auto) Salicylates 03/02/17 03/02/17 03/02/17 00:12 05:58 18:22 WBC RBC Hgb Hct MCV MCH RDW Plt Count Lymph % (Auto) [place] % (Auto) Eos % (Auto) Seg Neutrophils % Seg Neuts % (Manual) Lymphocytes % (Manual) Seg Neutrophils # Seg Neutrophils # Man Lymphocytes # (Manual) APTT POC ABG pH ABG pH POC ABG pCO2 POC ABG pO2 ABG pO2 ABG HCO3 ABG Base Excess ABG Hemoglobin VBG pH Oxyhemoglobin Sodium Potassium Chloride Carbon Dioxide BUN Creatinine Glucose POC Glucose 117 H 176 H 156 H Lactic Acid Calcium AST Alkaline Phosphatase CK-MB (CK-2) CK-MB (CK-2) Rel Index Albumin TSH Urine WBC (Auto) Salicylates 03/02/17 03/03/17 03/03/17 23:51 05:44 11:32 WBC RBC Hgb Hct MCV MCH RDW Plt Count Lymph % (Auto) [place] % (Auto) Eos % (Auto) Seg Neutrophils % Seg Neuts % (Manual) Lymphocytes % (Manual) Seg Neutrophils # Seg Neutrophils # Man Lymphocytes # (Manual) APTT POC ABG pH ABG pH POC ABG pCO2 POC ABG pO2 ABG pO2 ABG HCO3 ABG Base Excess ABG Hemoglobin VBG pH Oxyhemoglobin Sodium Potassium Chloride Carbon Dioxide BUN Creatinine Glucose POC Glucose 211 H 117 H 133 H Lactic Acid Calcium AST Alkaline Phosphatase CK-MB (CK-2) CK-MB (CK-2) Rel Index Albumin TSH Urine WBC (Auto) Salicylates 03/03/17 03/03/17 03/04/17 17:43 23:17 05:30 WBC RBC Hgb Hct MCV MCH RDW Plt Count Lymph % (Auto) [place] % (Auto) Eos % (Auto) Seg Neutrophils % Seg Neuts % (Manual) Lymphocytes % (Manual) Seg Neutrophils # Seg Neutrophils # Man Lymphocytes # (Manual) APTT POC ABG pH ABG pH POC ABG pCO2 POC ABG pO2 ABG pO2 ABG HCO3 ABG Base Excess ABG Hemoglobin VBG pH Oxyhemoglobin Sodium Potassium Chloride Carbon Dioxide BUN Creatinine Glucose POC Glucose 206 H 170 H 126 H Lactic Acid Calcium AST Alkaline Phosphatase CK-MB (CK-2) CK-MB (CK-2) Rel Index Albumin TSH Urine WBC (Auto) Salicylates 03/04/17 03/04/17 03/05/17 12:17 17:27 05:20 WBC RBC Hgb Hct MCV MCH RDW Plt Count Lymph % (Auto) [place] % (Auto) Eos % (Auto) Seg Neutrophils % Seg Neuts % (Manual) Lymphocytes % (Manual) Seg Neutrophils # Seg Neutrophils # Man Lymphocytes # (Manual) APTT POC ABG pH ABG pH POC ABG pCO2 POC ABG pO2 ABG pO2 ABG HCO3 ABG Base Excess ABG Hemoglobin VBG pH Oxyhemoglobin Sodium Potassium Chloride Carbon Dioxide BUN Creatinine Glucose POC Glucose 135 H 121 H 185 H Lactic Acid Calcium AST Alkaline Phosphatase CK-MB (CK-2) CK-MB (CK-2) Rel Index Albumin TSH Urine WBC (Auto) Salicylates 03/05/17 03/06/1717 11:50 11:52 17:34 WBC RBC Hgb Hct MCV MCH RDW Plt Count Lymph % (Auto) [place] % (Auto) Eos % (Auto) Seg Neutrophils % Seg Neuts % (Manual) Lymphocytes % (Manual) Seg Neutrophils # Seg Neutrophils # Man Lymphocytes # (Manual) APTT POC ABG pH ABG pH POC ABG pCO2 POC ABG pO2 ABG pO2 ABG HCO3 ABG Base Excess ABG Hemoglobin VBG pH Oxyhemoglobin Sodium Potassium Chloride Carbon Dioxide BUN Creatinine Glucose POC Glucose 116 H 133 H 181 H Lactic Acid Calcium AST Alkaline Phosphatase CK-MB (CK-2) CK-MB (CK-2) Rel Index Albumin TSH Urine WBC (Auto) Salicylates 03/07/17 03/07/17 03/07/17 05:21 11:36 17:49 WBC RBC Hgb Hct MCV MCH RDW Plt Count Lymph % (Auto) [place] % (Auto) Eos % (Auto) Seg Neutrophils % Seg Neuts % (Manual) Lymphocytes % (Manual) Seg Neutrophils # Seg Neutrophils # Man Lymphocytes # (Manual) APTT POC ABG pH ABG pH POC ABG pCO2 POC ABG pO2 ABG pO2 ABG HCO3 ABG Base Excess ABG Hemoglobin VBG pH Oxyhemoglobin Sodium Potassium Chloride Carbon Dioxide BUN Creatinine Glucose POC Glucose 159 H 137 H 158 H Lactic Acid Calcium AST Alkaline Phosphatase CK-MB (CK-2) CK-MB (CK-2) Rel Index Albumin TSH Urine WBC (Auto) Salicylates 03/08/17 03/08/17 03/08/17 05:51 13:58 23:50 WBC RBC Hgb Hct MCV MCH RDW Plt Count Lymph % (Auto) [place] % (Auto) Eos % (Auto) Seg Neutrophils % Seg Neuts % (Manual) Lymphocytes % (Manual) Seg Neutrophils # Seg Neutrophils # Man Lymphocytes # (Manual) APTT POC ABG pH ABG pH POC ABG pCO2 POC ABG pO2 ABG pO2 ABG HCO3 ABG Base Excess ABG Hemoglobin VBG pH Oxyhemoglobin Sodium Potassium Chloride Carbon Dioxide BUN Creatinine Glucose POC Glucose 122 H 182 H 114 H Lactic Acid Calcium AST Alkaline Phosphatase CK-MB (CK-2) CK-MB (CK-2) Rel Index Albumin TSH Urine WBC (Auto) Salicylates 03/09/17 03/09/17 03/09/17 05:21 05:51 05:51 WBC RBC 3.61 L Hgb 9.5 L Hct 28.3 L MCV 79 L MCH 26 L RDW 17.8 H Plt Count Lymph % (Auto) [place] % (Auto) Eos % (Auto) Seg Neutrophils % Seg Neuts % (Manual) Lymphocytes % (Manual) Seg Neutrophils # Seg Neutrophils # Man Lymphocytes # (Manual) APTT POC ABG pH ABG pH POC ABG pCO2 POC ABG pO2 ABG pO2 ABG HCO3 ABG Base Excess ABG Hemoglobin VBG pH Oxyhemoglobin Sodium 134 L Potassium Chloride 95.5 L Carbon Dioxide BUN 33 H Creatinine 0.5 L Glucose 143 H POC Glucose 153 H Lactic Acid Calcium AST Alkaline Phosphatase CK-MB (CK-2) CK-MB (CK-2) Rel Index Albumin TSH Urine WBC (Auto) Salicylates 03/09/17 03/09/17 03/09/17 12:10 18:13 21:00 WBC RBC Hgb Hct MCV MCH RDW Plt Count Lymph % (Auto) [place] % (Auto) Eos % (Auto) Seg Neutrophils % Seg Neuts % (Manual) Lymphocytes % (Manual) Seg Neutrophils # Seg Neutrophils # Man Lymphocytes # (Manual) APTT POC ABG pH ABG pH POC ABG pCO2 POC ABG pO2 ABG pO2 ABG HCO3 ABG Base Excess ABG Hemoglobin VBG pH Oxyhemoglobin Sodium Potassium Chloride Carbon Dioxide BUN Creatinine Glucose POC Glucose 203 H 221 H 198 H Lactic Acid Calcium AST Alkaline Phosphatase CK-MB (CK-2) CK-MB (CK-2) Rel Index Albumin TSH Urine WBC (Auto) Salicylates 03/09/17 03/10/17 03/10/17 23:58 05:09 05:09 WBC RBC Hgb 10.3 L Hct 30.5 L MCV 78 L MCH 26 L RDW 17.9 H Plt Count Lymph % (Auto) [place] % (Auto) 10.0 H Eos % (Auto) 6.0 H Seg Neutrophils % Seg Neuts % (Manual) Lymphocytes % (Manual) Seg Neutrophils # Seg Neutrophils # Man Lymphocytes # (Manual) APTT POC ABG pH ABG pH POC ABG pCO2 POC ABG pO2 ABG pO2 ABG HCO3 ABG Base Excess ABG Hemoglobin VBG pH Oxyhemoglobin Sodium 132 L Potassium Chloride 92.2 L Carbon Dioxide BUN 33 H Creatinine 0.5 L Glucose 50 L POC Glucose 167 H Lactic Acid Calcium AST Alkaline Phosphatase CK-MB (CK-2) CK-MB (CK-2) Rel Index Albumin TSH Urine WBC (Auto) Salicylates 03/10/17 03/10/17 03/10/17 05:33 05:34 11:48 WBC RBC Hgb Hct MCV MCH RDW Plt Count Lymph % (Auto) [place] % (Auto) Eos % (Auto) Seg Neutrophils % Seg Neuts % (Manual) Lymphocytes % (Manual) Seg Neutrophils # Seg Neutrophils # Man Lymphocytes # (Manual) APTT POC ABG pH ABG pH POC ABG pCO2 POC ABG pO2 ABG pO2 ABG HCO3 ABG Base Excess ABG Hemoglobin VBG pH Oxyhemoglobin Sodium Potassium Chloride Carbon Dioxide BUN Creatinine Glucose POC Glucose 52 L 53 L 148 H Lactic Acid Calcium AST Alkaline Phosphatase CK-MB (CK-2) CK-MB (CK-2) Rel Index Albumin TSH Urine WBC (Auto) Salicylates 03/10/17 03/10/17 03/11/17 17:53 23:47 05:18 WBC RBC Hgb Hct MCV MCH RDW Plt Count Lymph % (Auto) [place] % (Auto) Eos % (Auto) Seg Neutrophils % Seg Neuts % (Manual) Lymphocytes % (Manual) Seg Neutrophils # Seg Neutrophils # Man Lymphocytes # (Manual) APTT POC ABG pH ABG pH POC ABG pCO2 POC ABG pO2 ABG pO2 ABG HCO3 ABG Base Excess ABG Hemoglobin VBG pH Oxyhemoglobin Sodium Potassium Chloride Carbon Dioxide BUN Creatinine Glucose POC Glucose 189 H 398 H 126 H Lactic Acid Calcium AST Alkaline Phosphatase CK-MB (CK-2) CK-MB (CK-2) Rel Index Albumin TSH Urine WBC (Auto) Salicylates 03/11/17 03/11/17 03/11/17 11:53 17:30 23:10 WBC RBC Hgb Hct MCV MCH RDW Plt Count Lymph % (Auto) [place] % (Auto) Eos % (Auto) Seg Neutrophils % Seg Neuts % (Manual) Lymphocytes % (Manual) Seg Neutrophils # Seg Neutrophils # Man Lymphocytes # (Manual) APTT POC ABG pH ABG pH POC ABG pCO2 POC ABG pO2 ABG pO2 ABG HCO3 ABG Base Excess ABG Hemoglobin VBG pH Oxyhemoglobin Sodium Potassium Chloride Carbon Dioxide BUN Creatinine Glucose POC Glucose 198 H 142 H 244 H Lactic Acid Calcium AST Alkaline Phosphatase CK-MB (CK-2) CK-MB (CK-2) Rel Index Albumin TSH Urine WBC (Auto) Salicylates 03/12/17 03/12/17 03/12/17 04:36 11:49 17:23 WBC RBC Hgb Hct MCV MCH RDW Plt Count Lymph % (Auto) [place] % (Auto) Eos % (Auto) Seg Neutrophils % Seg Neuts % (Manual) Lymphocytes % (Manual) Seg Neutrophils # Seg Neutrophils # Man Lymphocytes # (Manual) APTT POC ABG pH ABG pH POC ABG pCO2 POC ABG pO2 ABG pO2 ABG HCO3 ABG Base Excess ABG Hemoglobin VBG pH Oxyhemoglobin Sodium Potassium Chloride Carbon Dioxide BUN Creatinine Glucose POC Glucose 205 H 197 H 209 H Lactic Acid Calcium AST Alkaline Phosphatase CK-MB (CK-2) CK-MB (CK-2) Rel Index Albumin TSH Urine WBC (Auto) Salicylates 03/12/17 03/13/17 03/13/17 23:51 05:32 11:43 WBC RBC Hgb Hct MCV MCH RDW Plt Count Lymph % (Auto) [place] % (Auto) Eos % (Auto) Seg Neutrophils % Seg Neuts % (Manual) Lymphocytes % (Manual) Seg Neutrophils # Seg Neutrophils # Man Lymphocytes # (Manual) APTT POC ABG pH ABG pH POC ABG pCO2 POC ABG pO2 ABG pO2 ABG HCO3 ABG Base Excess ABG Hemoglobin VBG pH Oxyhemoglobin Sodium Potassium Chloride Carbon Dioxide BUN Creatinine Glucose POC Glucose 210 H 154 H 164 H Lactic Acid Calcium AST Alkaline Phosphatase CK-MB (CK-2) CK-MB (CK-2) Rel Index Albumin TSH Urine WBC (Auto) Salicylates 03/13/17 03/13/17 03/14/17 17:11 23:26 05:42 WBC RBC Hgb Hct MCV MCH RDW Plt Count Lymph % (Auto) [place] % (Auto) Eos % (Auto) Seg Neutrophils % Seg Neuts % (Manual) Lymphocytes % (Manual) Seg Neutrophils # Seg Neutrophils # Man Lymphocytes # (Manual) APTT POC ABG pH ABG pH POC ABG pCO2 POC ABG pO2 ABG pO2 ABG HCO3 ABG Base Excess ABG Hemoglobin VBG pH Oxyhemoglobin Sodium Potassium Chloride Carbon Dioxide BUN Creatinine Glucose POC Glucose 195 H 240 H 230 H Lactic Acid Calcium AST Alkaline Phosphatase CK-MB (CK-2) CK-MB (CK-2) Rel Index Albumin TSH Urine WBC (Auto) Salicylates 03/14/17 03/14/17 03/14/17 14:04 17:34 23:42 WBC RBC Hgb Hct MCV MCH RDW Plt Count Lymph % (Auto) [place] % (Auto) Eos % (Auto) Seg Neutrophils % Seg Neuts % (Manual) Lymphocytes % (Manual) Seg Neutrophils # Seg Neutrophils # Man Lymphocytes # (Manual) APTT POC ABG pH ABG pH POC ABG pCO2 POC ABG pO2 ABG pO2 ABG HCO3 ABG Base Excess ABG Hemoglobin VBG pH Oxyhemoglobin Sodium Potassium Chloride Carbon Dioxide BUN Creatinine Glucose POC Glucose 227 H 186 H 225 H Lactic Acid Calcium AST Alkaline Phosphatase CK-MB (CK-2) CK-MB (CK-2) Rel Index Albumin TSH Urine WBC (Auto) Salicylates 03/15/17 03/15/17 03/15/17 05:21 17:13 21:37 WBC RBC Hgb Hct MCV MCH RDW Plt Count Lymph % (Auto) [place] % (Auto) Eos % (Auto) Seg Neutrophils % Seg Neuts % (Manual) Lymphocytes % (Manual) Seg Neutrophils # Seg Neutrophils # Man Lymphocytes # (Manual) APTT POC ABG pH ABG pH POC ABG pCO2 POC ABG pO2 ABG pO2 ABG HCO3 ABG Base Excess ABG Hemoglobin VBG pH Oxyhemoglobin Sodium Potassium Chloride Carbon Dioxide BUN Creatinine Glucose POC Glucose 244 H 203 H 216 H Lactic Acid Calcium AST Alkaline Phosphatase CK-MB (CK-2) CK-MB (CK-2) Rel Index Albumin TSH Urine WBC (Auto) Salicylates 03/16/17 03/16/17 03/16/17 05:52 18:07 21:54 WBC RBC Hgb Hct MCV MCH RDW Plt Count Lymph % (Auto) [place] % (Auto) Eos % (Auto) Seg Neutrophils % Seg Neuts % (Manual) Lymphocytes % (Manual) Seg Neutrophils # Seg Neutrophils # Man Lymphocytes # (Manual) APTT POC ABG pH ABG pH POC ABG pCO2 POC ABG pO2 ABG pO2 ABG HCO3 ABG Base Excess ABG Hemoglobin VBG pH Oxyhemoglobin Sodium Potassium Chloride Carbon Dioxide BUN Creatinine Glucose POC Glucose 248 H 254 H 244 H Lactic Acid Calcium AST Alkaline Phosphatase CK-MB (CK-2) CK-MB (CK-2) Rel Index Albumin TSH Urine WBC (Auto) Salicylates 03/17/17 03/17/17 03/17/17 07:07 07:42 07:43 WBC RBC Hgb 9.7 L Hct 29.1 L MCV 78 L MCH 26 L RDW 17.4 H Plt Count Lymph % (Auto) [place] % (Auto) Eos % (Auto) Seg Neutrophils % Seg Neuts % (Manual) Lymphocytes % (Manual) Seg Neutrophils # Seg Neutrophils # Man Lymphocytes # (Manual) APTT POC ABG pH ABG pH POC ABG pCO2 POC ABG pO2 ABG pO2 ABG HCO3 ABG Base Excess ABG Hemoglobin VBG pH Oxyhemoglobin Sodium Potassium Chloride 96.6 L Carbon Dioxide BUN 30 H Creatinine 0.5 L Glucose 251 H POC Glucose 222 H Lactic Acid Calcium AST Alkaline Phosphatase CK-MB (CK-2) CK-MB (CK-2) Rel Index Albumin TSH Urine WBC (Auto) Salicylates 03/17/17 03/17/17 14:08 21:20 WBC RBC Hgb Hct MCV MCH RDW Plt Count Lymph % (Auto) [place] % (Auto) Eos % (Auto) Seg Neutrophils % Seg Neuts % (Manual) Lymphocytes % (Manual) Seg Neutrophils # Seg Neutrophils # Man Lymphocytes # (Manual) APTT POC ABG pH ABG pH POC ABG pCO2 POC ABG pO2 ABG pO2 ABG HCO3 ABG Base Excess ABG Hemoglobin VBG pH Oxyhemoglobin Sodium Potassium Chloride Carbon Dioxide BUN Creatinine Glucose POC Glucose 281 H 239 H Lactic Acid Calcium AST Alkaline Phosphatase CK-MB (CK-2) CK-MB (CK-2) Rel Index Albumin TSH Urine WBC (Auto) Salicylates
[2017-03-18] MEDS: PEPCID PO SCH ×2 (09:15→22:29)
[2017-03-18] MEDS: HEPARIN SUB-Q SCH ×2 (09:15→22:29)
--- NOTE | 2017-03-18 12:38 | Progress Note ---
Assessment and Plan Hypoglycemic brain injury Persistent vegetative state Metabolic encephalopathy Hypoglycemia/hypothermia, resolved Acute respiratory failure mechanical ventilator greater than 96 hours UTI with klebsiella, treated ( Cx + on 01/28), then with ESBL likely colonization hyponatremia, Hypothyroidism IDDM Hypertension low grade Fever, resolved - Cont supportive care and current medication. Monitor vitals, repeat cx on - no growth - increased dose of long acting insulin to 15 unit - Patient is DNR- needs guardianship from the state to give consent for further management, as has no family to give consent. Brief History: 51 YO Male with CKD,HTN, DM presents to ED after found down and unresponsive by his neighbor, who subsequently called EMS. Upon arrival, patient found unresponsive on the floor with a serum glucose of 21, patient has a known history of alcohol abuse and delirium tremens. The patient was administered D5 approximate 500 mls during transport without change in mental status/level of consciousness. Pt seen and evaluated in ED was was found to be unable to protect his airway. Pt intubated and placed on vent support. Pt found to have evidence of hypothyroidism. He was started on Synthroid. He has since been in the ICU. assistant guest services manager try to locate family, even spoke to the family who he lives with. They themselves were unaware of any family members. After ethics committee meeting on the patient. The decision was made to make him DO NOT RESUSCITATE and to transfer him to hospice. Given his very poor prognosis and poor likelihood of recovery. It was decided that was not his best interest to get trach and PEG. Therefore he'll be transferred to the hospice intubated. Now Awaiting on court ordered /state guardianship. Hospitalist Physical - Physical exam Narrative exam: General: comatose HEENT: Moist mucous membranes, , no lymphadenopathy Neck: supple Cardiac: S1-S2 heard Lungs: mechnical ventilated breath sounds Abdomen: soft , nontender, nondistended, bowel sounds positive Extremities: no edema clubbing or cyanosis Skin: no rash or lesions Neurologic: opens eyes, no response to deep painful stimuli, does not follow commend Subjective Date of service: 03/18/17 Principal diagnosis: Acute respiratory failure,encephalopathy Interval history: patient remains comatose, no movement of extremities afebrile o/n, no clinical change Objective - Constitutional Vitals: Vital Signs - 12hr 03/18/17 03/18/17 03/18/17 01:00 02:00 03:00 Temperature Pulse Rate 64 64 67 Pulse Rate [ From Monitor] Respiratory 15 16 15 Rate Respiratory Rate [ Generalized] Blood Pressure 130/87 130/87 130/87 O2 Sat by Pulse 100 100 100 Oximetry 03/18/17 03/18/17 03/18/17 03:42 03:43 04:00 Temperature 98.9 F Pulse Rate 64 63 Pulse Rate [ From Monitor] Respiratory 16 Rate Respiratory Rate [ Generalized] Blood Pressure 130/87 130/87 O2 Sat by Pulse 97 98 Oximetry 03/18/17 03/18/17 03/18/17 05:00 06:00 07:00 Temperature Pulse Rate 72 68 76 Pulse Rate [ From Monitor] Respiratory 18 16 15 Rate Respiratory Rate [ Generalized] Blood Pressure 130/87 130/87 130/87 O2 Sat by Pulse 99 100 100 Oximetry 03/18/17 03/18/17 03/18/17 08:00 10:00 10:45 Temperature 98.3 F Pulse Rate 67 73 81 Pulse Rate [ 67 From Monitor] Respiratory 15 Rate Respiratory 12 Rate [ Generalized] Blood Pressure 119/75 119/75 O2 Sat by Pulse 100 96 Oximetry - Labs CBC & Chem 7: 03/17/17 07:43 03/17/17 07:42 Labs: Abnormal lab results 03/17/17 03/17/17 Range/Units 14:08 21:20 POC Glucose 281 H 239 H (70-105)
[2017-03-19] MEDS: SYNTHROID PO SCH (05:38)
[2017-03-19] MEDS: HumuLIN R SUB-Q SCH ×3 (05:38→23:34)
[2017-03-19] MEDS: PEPCID PO SCH ×2 (09:37→23:29)
[2017-03-19] MEDS: HEPARIN SUB-Q SCH ×2 (09:37→23:29)
--- NOTE | 2017-03-19 15:11 | Progress Note ---
Assessment and Plan Hypoglycemic brain injury Persistent vegetative state Metabolic encephalopathy Hypoglycemia/hypothermia, resolved Acute respiratory failure mechanical ventilator greater than 96 hours UTI with klebsiella, treated ( Cx + on 01/28), then with ESBL likely colonization hyponatremia, Hypothyroidism IDDM Hypertension low grade Fever, resolved - Cont supportive care and current medication. Monitor vitals, repeat cx on - no growth - increased dose of long acting insulin to 15 unit - Patient is DNR- needs guardianship from the state to give consent for further management, as has no family to give consent. Brief History: 51 YO Male with CKD,HTN, DM presents to ED after found down and unresponsive by his neighbor, who subsequently called EMS. Upon arrival, patient found unresponsive on the floor with a serum glucose of 21, patient has a known history of alcohol abuse and delirium tremens. The patient was administered D5 approximate 500 mls during transport without change in mental status/level of consciousness. Pt seen and evaluated in ED was was found to be unable to protect his airway. Pt intubated and placed on vent support. Pt found to have evidence of hypothyroidism. He was started on Synthroid. He has since been in the ICU. guest services manager try to locate family, even spoke to the family who he lives with. They themselves were unaware of any family members. After ethics committee meeting on the patient. The decision was made to make him DO NOT RESUSCITATE and to transfer him to hospice. Given his very poor prognosis and poor likelihood of recovery. It was decided that was not his best interest to get trach and PEG. Therefore he'll be transferred to the hospice intubated. Now Awaiting on court ordered /state guardianship. Hospitalist Physical - Physical exam Narrative exam: General: comatose HEENT: Moist mucous membranes, , no lymphadenopathy Neck: supple Cardiac: S1-S2 heard Lungs: mechnical ventilated breath sounds Abdomen: soft , nontender, nondistended, bowel sounds positive Extremities: no edema clubbing or cyanosis Skin: no rash or lesions Neurologic: opens eyes, no response to deep painful stimuli, does not follow commend Subjective Date of service: 03/19/17 Principal diagnosis: Acute respiratory failure,encephalopathy Interval history: patient remains comatose, no movement of extremities afebrile o/n, no clinical change Objective - Constitutional Vitals: Vital Signs - 12hr 03/19/17 03/19/17 03/19/17 03:33 04:00 04:21 Temperature 98.2 F Pulse Rate 70 78 Pulse Rate [ From Monitor] Respiratory 18 Rate Respiratory Rate [ Generalized] Blood Pressure 148/88 148/88 O2 Sat by Pulse 100 100 Oximetry 03/19/17 03/19/17 03/19/17 05:00 06:00 07:00 Temperature Pulse Rate 69 73 69 Pulse Rate [ From Monitor] Respiratory 17 16 17 Rate Respiratory Rate [ Generalized] Blood Pressure 148/88 148/88 148/88 O2 Sat by Pulse 100 100 100 Oximetry 03/19/17 03/19/17 03/19/17 08:00 08:31 09:00 Temperature 97.4 F L Pulse Rate 71 72 75 Pulse Rate [ 71 From Monitor] Respiratory 18 17 Rate Respiratory Rate [ Generalized] Blood Pressure 145/89 145/89 145/89 O2 Sat by Pulse 100 100 100 Oximetry 03/19/17 03/19/17 03/19/17 10:00 11:00 11:55 Temperature Pulse Rate 72 71 72 Pulse Rate [ From Monitor] Respiratory 16 17 Rate Respiratory 16 Rate [ Generalized] Blood Pressure 145/89 145/89 O2 Sat by Pulse 100 100 100 Oximetry 03/19/17 03/19/17 12:00 13:00 Temperature Pulse Rate 71 69 Pulse Rate [ From Monitor] Respiratory 17 17 Rate Respiratory Rate [ Generalized] Blood Pressure 145/89 145/89 O2 Sat by Pulse 100 100 Oximetry - Labs CBC & Chem 7: 03/17/17 07:43 03/17/17 07:42 Labs: Abnormal lab results 03/18/17 03/19/17 03/19/17 Range/Units 21:37 04:57 14:23 POC Glucose 227 H 205 H 277 H (70-105)
[2017-03-20] MEDS: SYNTHROID PO SCH (06:00)
[2017-03-20] MEDS: HumuLIN R SUB-Q SCH ×3 (06:59→22:02)
[2017-03-20] MEDS: HEPARIN SUB-Q SCH ×2 (09:47→22:03)
[2017-03-20] MEDS: PEPCID PO SCH ×2 (09:47→22:02)
--- NOTE | 2017-03-20 11:33 | Progress Note ---
Assessment and Plan 51 y/o male found down, concern for sepsis and now encephalopathic requiring mechanical ventilation. 1. continue supportive care 2. 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 I am aware that he is an AND but trach will not fix this problem and is not in my professional opinion the right thing to do for this patient. Most likely he will never be weaned from the vent and will remain in a persistent vegatative state. 3. Patient is not on abx therapy and currently does not need this 4. Overall prognosis continues to be poor. 5. Will not check labs 6. Vitals should be qshift 7. This patient's possibility of awakening from this persistent vegatative is unlikely. The current status is that there has been paper work filed to obtain guardianship so that end of life decisions can be made. Supportive care is reasonable but checking daily labs and doing other invasive things to this patient I do not feel is morally and ethically appropriate. Subjective Date of service: 03/20/17 Principal diagnosis: Acute respiratory failure,encephalopathy Interval history: No acute events. clinical status is still unchanged. HR maintains in the mid 60's. Was not tried on pSV yesterday. Objective Vital Signs - 12hr 03/19/17 03/20/17 03/20/17 23:51 00:00 01:00 Temperature Pulse Rate 71 70 73 Pulse Rate [ From Monitor] Respiratory 16 15 Rate Blood Pressure 137/78 120/77 120/77 O2 Sat by Pulse 100 100 100 Oximetry 03/20/17 03/20/17 03/20/17 02:00 03:00 03:44 Temperature 99.7 F H Pulse Rate 75 80 Pulse Rate [ From Monitor] Respiratory 15 21 Rate Blood Pressure 120/77 120/77 O2 Sat by Pulse 100 100 Oximetry 03/20/17 03/20/17 03/20/17 04:00 04:59 05:00 Temperature Pulse Rate 69 67 68 Pulse Rate [ From Monitor] Respiratory 14 17 Rate Blood Pressure 120/77 120/77 120/77 O2 Sat by Pulse 100 100 Oximetry 03/20/17 03/20/17 03/20/17 06:00 07:00 07:57 Temperature Pulse Rate 68 64 69 Pulse Rate [ From Monitor] Respiratory 14 13 Rate Blood Pressure 120/77 120/77 O2 Sat by Pulse 100 100 100 Oximetry 03/20/17 03/20/17 08:00 09:00 Temperature Pulse Rate 66 72 Pulse Rate [ 66 From Monitor] Respiratory 14 18 Rate Blood Pressure 138/86 138/86 O2 Sat by Pulse 100 100 Oximetry Constitutional: no acute distress, other (intubated, on vent support) Eyes: non-icteric ENT: oropharynx moist Neck: supple Effort: normal Ascultation: Bilateral: clear, diminished breath sounds Cardiovascular: regular rate and rhythm Gastrointestinal: normoactive bowel sounds, soft, non-tender, non-distended Integumentary: normal Extremities: no cyanosis, no edema, pink and warm Neurologic: other (awake spontaneously, not not following any commands. Fixed stare.) Psychiatric: other (unable to obtain) CBC and BMP: 03/17/17 07:43 03/17/17 07:42 ABG, PT/INR, D-dimer: ABG POC ABG pH 7.442 (7.35-7.45) 01/31/17 18:55 ABG pH 7.420 pH Units (7.350-7.450) 01/17/17 04:35 POC ABG pCO2 32.8 (35-45) L 01/31/17 18:55 ABG pCO2 34.5 mm Hg 01/17/17 04:35 POC ABG pO2 82 (80-105) 01/31/17 18:55 ABG pO2 160.3 mm Hg (80.0-90.0) H 01/17/17 04:35 POC ABG HCO3 22.4 01/31/17 18:55 POC ABG Total CO2 23 01/31/17 18:55 POC ABG O2 Sat 97 01/31/17 18:55 ABG O2 Saturation 99.0 % (95.0-99.0) 01/17/17 04:35 PT/INR, D-dimer PT 14.1 Sec. (12.2-14.9) 01/17/17 04:10 INR 1.04 (0.87-1.13) 01/17/17 04:10 Abnormal lab findings: Abnormal Labs 01/09/17 01/09/17 01/09/17 10:16 10:16 10:16 WBC RBC Hgb 9.7 L Hct 28.4 L MCV 76 L MCH 26 L RDW 17.2 H Plt Count 448 H Lymph % (Auto) [place] % (Auto) Eos % (Auto) Seg Neutrophils % 79.5 H Seg Neuts % (Manual) Lymphocytes % (Manual) Seg Neutrophils # Seg Neutrophils # Man Lymphocytes # (Manual) APTT 39.6 H POC ABG pH ABG pH POC ABG pCO2 POC ABG pO2 ABG pO2 ABG HCO3 ABG Base Excess ABG Hemoglobin VBG pH Oxyhemoglobin Sodium 132 L Potassium Chloride 96.7 L Carbon Dioxide 21 L BUN 34 H Creatinine Glucose POC Glucose Lactic Acid Calcium 8.3 L AST Alkaline Phosphatase 151 H CK-MB (CK-2) 7.1 H CK-MB (CK-2) Rel Index 5.2 H Albumin 3.3 L TSH Urine WBC (Auto) Salicylates 01/09/17 01/09/17 01/09/17 10:16 10:16 10:16 WBC RBC Hgb Hct MCV MCH RDW Plt Count Lymph % (Auto) [place] % (Auto) Eos % (Auto) Seg Neutrophils % Seg Neuts % (Manual) Lymphocytes % (Manual) Seg Neutrophils # Seg Neutrophils # Man Lymphocytes # (Manual) APTT POC ABG pH ABG pH POC ABG pCO2 POC ABG pO2 ABG pO2 ABG HCO3 ABG Base Excess ABG Hemoglobin VBG pH 7.284 L Oxyhemoglobin Sodium Potassium Chloride Carbon Dioxide BUN Creatinine Glucose POC Glucose Lactic Acid Calcium AST Alkaline Phosphatase CK-MB (CK-2) CK-MB (CK-2) Rel Index Albumin TSH 52.800 H Urine WBC (Auto) Salicylates < 0.3 L 01/09/17 01/09/17 01/09/17 10:23 11:14 12:49 WBC RBC Hgb Hct MCV MCH RDW Plt Count Lymph % (Auto) [place] % (Auto) Eos % (Auto) Seg Neutrophils % Seg Neuts % (Manual) Lymphocytes % (Manual) Seg Neutrophils # Seg Neutrophils # Man Lymphocytes # (Manual) APTT POC ABG pH ABG pH POC ABG pCO2 POC ABG pO2 643 H ABG pO2 ABG HCO3 ABG Base Excess ABG Hemoglobin VBG pH Oxyhemoglobin Sodium Potassium Chloride Carbon Dioxide BUN Creatinine Glucose POC Glucose < 40 L Lactic Acid Calcium AST Alkaline Phosphatase CK-MB (CK-2) CK-MB (CK-2) Rel Index Albumin TSH Urine WBC (Auto) 61.0 H Salicylates 1001/09/17 01/09/17 13:13 14:21 15:09 WBC RBC Hgb Hct MCV MCH RDW Plt Count Lymph % (Auto) [place] % (Auto) Eos % (Auto) Seg Neutrophils % Seg Neuts % (Manual) Lymphocytes % (Manual) Seg Neutrophils # Seg Neutrophils # Man Lymphocytes # (Manual) APTT POC ABG pH ABG pH POC ABG pCO2 POC ABG pO2 ABG pO2 ABG HCO3 ABG Base Excess ABG Hemoglobin VBG pH Oxyhemoglobin Sodium Potassium Chloride Carbon Dioxide BUN Creatinine Glucose POC Glucose 128 H 65 L 120 H Lactic Acid Calcium AST Alkaline Phosphatase CK-MB (CK-2) CK-MB (CK-2) Rel Index Albumin TSH Urine WBC (Auto) Salicylates 01/09/17 01/09/17 01/10/17 16:28 17:14 04:30 WBC 24.1 H RBC 3.38 L Hgb 8.5 L Hct 26.0 L MCV 77 L MCH 25 L RDW 17.9 H Plt Count 474 H Lymph % (Auto) [place] % (Auto) Eos % (Auto) Seg Neutrophils % Seg Neuts % (Manual) 88.0 H Lymphocytes % (Manual) 4.0 L Seg Neutrophils # Seg Neutrophils # Man 21.2 H Lymphocytes # (Manual) 1.0 L APTT POC ABG pH ABG pH POC ABG pCO2 POC ABG pO2 ABG pO2 ABG HCO3 ABG Base Excess ABG Hemoglobin VBG pH Oxyhemoglobin Sodium Potassium Chloride Carbon Dioxide BUN Creatinine Glucose POC Glucose 44 L 112 H Lactic Acid Calcium AST Alkaline Phosphatase CK-MB (CK-2) CK-MB (CK-2) Rel Index Albumin TSH Urine WBC (Auto) Salicylates 01/10/17 01/10/17 01/10/17 04:30 05:41 05:45 WBC RBC Hgb Hct MCV MCH RDW Plt Count Lymph % (Auto) [place] % (Auto) Eos % (Auto) Seg Neutrophils % Seg Neuts % (Manual) Lymphocytes % (Manual) Seg Neutrophils # Seg Neutrophils # Man Lymphocytes # (Manual) APTT POC ABG pH ABG pH POC ABG pCO2 26.6 L POC ABG pO2 207 H ABG pO2 ABG HCO3 ABG Base Excess ABG Hemoglobin VBG pH Oxyhemoglobin Sodium Potassium Chloride Carbon Dioxide 17 L BUN 27 H Creatinine Glucose POC Glucose 68 L Lactic Acid Calcium 7.5 L AST Alkaline Phosphatase CK-MB (CK-2) CK-MB (CK-2) Rel Index Albumin TSH Urine WBC (Auto) Salicylates 01/10/17 01/10/17 01/10/17 07:47 10:50 13:41 WBC RBC Hgb Hct MCV MCH RDW Plt Count Lymph % (Auto) [place] % (Auto) Eos % (Auto) Seg Neutrophils % Seg Neuts % (Manual) Lymphocytes % (Manual) Seg Neutrophils # Seg Neutrophils # Man Lymphocytes # (Manual) APTT POC ABG pH ABG pH POC ABG pCO2 POC ABG pO2 ABG pO2 ABG HCO3 ABG Base Excess ABG Hemoglobin VBG pH Oxyhemoglobin Sodium Potassium Chloride Carbon Dioxide BUN Creatinine Glucose POC Glucose 148 H 165 H 114 H Lactic Acid Calcium AST Alkaline Phosphatase CK-MB (CK-2) CK-MB (CK-2) Rel Index Albumin TSH Urine WBC (Auto) Salicylates 01/10/17 01/10/17 01/10/17 20:20 21:39 23:24 WBC RBC Hgb Hct MCV MCH RDW Plt Count Lymph % (Auto) [place] % (Auto) Eos % (Auto) Seg Neutrophils % Seg Neuts % (Manual) Lymphocytes % (Manual) Seg Neutrophils # Seg Neutrophils # Man Lymphocytes # (Manual) APTT POC ABG pH ABG pH POC ABG pCO2 POC ABG pO2 ABG pO2 ABG HCO3 ABG Base Excess ABG Hemoglobin VBG pH Oxyhemoglobin Sodium Potassium Chloride Carbon Dioxide BUN Creatinine Glucose POC Glucose 150 H 175 H 155 H Lactic Acid Calcium AST Alkaline Phosphatase CK-MB (CK-2) CK-MB (CK-2) Rel Index Albumin TSH Urine WBC (Auto) Salicylates 01/11/17 01/11/17 01/11/17 00:19 04:06 05:20 WBC 15.2 H RBC 3.40 L Hgb 8.9 L Hct 26.3 L MCV 78 L MCH 26 L RDW 18.6 H Plt Count 462 H Lymph % (Auto) 13.2 L [place] % (Auto) Eos % (Auto) Seg Neutrophils % 80.8 H Seg Neuts % (Manual) Lymphocytes % (Manual) Seg Neutrophils # 12.3 H Seg Neutrophils # Man Lymphocytes # (Manual) APTT POC ABG pH 7.463 H ABG pH POC ABG pCO2 26.2 L POC ABG pO2 185 H ABG pO2 ABG HCO3 ABG Base Excess ABG Hemoglobin VBG pH Oxyhemoglobin Sodium Potassium Chloride Carbon Dioxide BUN Creatinine Glucose POC Glucose 163 H Lactic Acid Calcium AST Alkaline Phosphatase CK-MB (CK-2) CK-MB (CK-2) Rel Index Albumin TSH Urine WBC (Auto) Salicylates 01/11/17 01/11/17 01/11/17 05:20 06:21 07:57 WBC RBC Hgb Hct MCV MCH RDW Plt Count Lymph % (Auto) [place] % (Auto) Eos % (Auto) Seg Neutrophils % Seg Neuts % (Manual) Lymphocytes % (Manual) Seg Neutrophils # Seg Neutrophils # Man Lymphocytes # (Manual) APTT POC ABG pH ABG pH POC ABG pCO2 POC ABG pO2 ABG pO2 ABG HCO3 ABG Base Excess ABG Hemoglobin VBG pH Oxyhemoglobin Sodium Potassium 3.4 L Chloride 111.5 H Carbon Dioxide 17 L BUN Creatinine Glucose 147 H POC Glucose 139 H 188 H Lactic Acid Calcium 8.0 L AST Alkaline Phosphatase CK-MB (CK-2) CK-MB (CK-2) Rel Index Albumin TSH Urine WBC (Auto) Salicylates 01/11/17 01/11/17 01/11/17 11:46 16:50 23:15 WBC RBC Hgb Hct MCV MCH RDW Plt Count Lymph % (Auto) [place] % (Auto) Eos % (Auto) Seg Neutrophils % Seg Neuts % (Manual) Lymphocytes % (Manual) Seg Neutrophils # Seg Neutrophils # Man Lymphocytes # (Manual) APTT POC ABG pH ABG pH POC ABG pCO2 POC ABG pO2 ABG pO2 ABG HCO3 ABG Base Excess ABG Hemoglobin VBG pH Oxyhemoglobin Sodium Potassium Chloride Carbon Dioxide BUN Creatinine Glucose POC Glucose 199 H 235 H 155 H Lactic Acid Calcium AST Alkaline Phosphatase CK-MB (CK-2) CK-MB (CK-2) Rel Index Albumin TSH Urine WBC (Auto) Salicylates 01/12/17 01/12/17 01/12/17 05:02 06:56 14:50 WBC RBC Hgb Hct MCV MCH RDW Plt Count Lymph % (Auto) [place] % (Auto) Eos % (Auto) Seg Neutrophils % Seg Neuts % (Manual) Lymphocytes % (Manual) Seg Neutrophils # Seg Neutrophils # Man Lymphocytes # (Manual) APTT POC ABG pH ABG pH POC ABG pCO2 28.0 L POC ABG pO2 178 H ABG pO2 ABG HCO3 ABG Base Excess ABG Hemoglobin VBG pH Oxyhemoglobin Sodium Potassium Chloride Carbon Dioxide BUN Creatinine Glucose POC Glucose 119 H 164 H Lactic Acid Calcium AST Alkaline Phosphatase CK-MB (CK-2) CK-MB (CK-2) Rel Index Albumin TSH Urine WBC (Auto) Salicylates 01/13/17 01/13/17 01/13/17 03:37 03:37 04:26 WBC RBC 3.61 L Hgb 9.3 L Hct 28.0 L MCV 78 L MCH 26 L RDW 18.2 H Plt Count Lymph % (Auto) [place] % (Auto) Eos % (Auto) Seg Neutrophils % Seg Neuts % (Manual) Lymphocytes % (Manual) Seg Neutrophils # Seg Neutrophils # Man Lymphocytes # (Manual) APTT POC ABG pH 7.485 H ABG pH POC ABG pCO2 25.4 L POC ABG pO2 73 L ABG pO2 ABG HCO3 ABG Base Excess ABG Hemoglobin VBG pH Oxyhemoglobin Sodium Potassium Chloride 112.4 H Carbon Dioxide 19 L BUN Creatinine Glucose 118 H POC Glucose Lactic Acid Calcium 8.0 L AST Alkaline Phosphatase CK-MB (CK-2) CK-MB (CK-2) Rel Index Albumin TSH Urine WBC (Auto) Salicylates 01/13/17 01/13/17 01/13/17 06:15 11:50 17:31 WBC RBC Hgb Hct MCV MCH RDW Plt Count Lymph % (Auto) [place] % (Auto) Eos % (Auto) Seg Neutrophils % Seg Neuts % (Manual) Lymphocytes % (Manual) Seg Neutrophils # Seg Neutrophils # Man Lymphocytes # (Manual) APTT POC ABG pH ABG pH POC ABG pCO2 POC ABG pO2 ABG pO2 ABG HCO3 ABG Base Excess ABG Hemoglobin VBG pH Oxyhemoglobin Sodium Potassium Chloride Carbon Dioxide BUN Creatinine Glucose POC Glucose 116 H 171 H 203 H Lactic Acid Calcium AST Alkaline Phosphatase CK-MB (CK-2) CK-MB (CK-2) Rel Index Albumin TSH Urine WBC (Auto) Salicylates 01/14/17 01/14/17 01/14/17 00:02 04:50 04:50 WBC RBC 3.32 L Hgb 8.5 L Hct 26.1 L MCV 79 L MCH 26 L RDW 18.2 H Plt Count Lymph % (Auto) [place] % (Auto) 9.0 H Eos % (Auto) Seg Neutrophils % Seg Neuts % (Manual) Lymphocytes % (Manual) Seg Neutrophils # Seg Neutrophils # Man Lymphocytes # (Manual) APTT POC ABG pH ABG pH POC ABG pCO2 POC ABG pO2 ABG pO2 ABG HCO3 ABG Base Excess ABG Hemoglobin VBG pH Oxyhemoglobin Sodium Potassium Chloride 112.5 H Carbon Dioxide BUN Creatinine Glucose 149 H POC Glucose 157 H Lactic Acid Calcium 8.1 L AST Alkaline Phosphatase CK-MB (CK-2) CK-MB (CK-2) Rel Index Albumin TSH Urine WBC (Auto) Salicylates 01/14/17 01/14/17 01/14/17 05:10 11:27 14:07 WBC RBC Hgb Hct MCV MCH RDW Plt Count Lymph % (Auto) [place] % (Auto) Eos % (Auto) Seg Neutrophils % Seg Neuts % (Manual) Lymphocytes % (Manual) Seg Neutrophils # Seg Neutrophils # Man Lymphocytes # (Manual) APTT POC ABG pH ABG pH POC ABG pCO2 POC ABG pO2 ABG pO2 ABG HCO3 ABG Base Excess ABG Hemoglobin VBG pH Oxyhemoglobin Sodium Potassium Chloride Carbon Dioxide BUN Creatinine Glucose POC Glucose 176 H 147 H Lactic Acid Calcium AST Alkaline Phosphatase CK-MB (CK-2) CK-MB (CK-2) Rel Index Albumin TSH Urine WBC (Auto) 53.0 H Salicylates 01/14/17 01/15/17 01/15/17 16:52 00:04 05:26 WBC RBC Hgb Hct MCV MCH RDW Plt Count Lymph % (Auto) [place] % (Auto) Eos % (Auto) Seg Neutrophils % Seg Neuts % (Manual) Lymphocytes % (Manual) Seg Neutrophils # Seg Neutrophils # Man Lymphocytes # (Manual) APTT POC ABG pH ABG pH POC ABG pCO2 POC ABG pO2 ABG pO2 ABG HCO3 ABG Base Excess ABG Hemoglobin VBG pH Oxyhemoglobin Sodium Potassium Chloride Carbon Dioxide BUN Creatinine Glucose POC Glucose 131 H 193 H 215 H Lactic Acid Calcium AST Alkaline Phosphatase CK-MB (CK-2) CK-MB (CK-2) Rel Index Albumin TSH Urine WBC (Auto) Salicylates 01/15/17 01/15/17 01/15/17 11:49 17:47 21:33 WBC RBC Hgb Hct MCV MCH RDW Plt Count Lymph % (Auto) [place] % (Auto) Eos % (Auto) Seg Neutrophils % Seg Neuts % (Manual) Lymphocytes % (Manual) Seg Neutrophils # Seg Neutrophils # Man Lymphocytes # (Manual) APTT POC ABG pH ABG pH POC ABG pCO2 POC ABG pO2 ABG pO2 ABG HCO3 ABG Base Excess ABG Hemoglobin VBG pH Oxyhemoglobin Sodium Potassium Chloride Carbon Dioxide BUN Creatinine Glucose POC Glucose 121 H 211 H 275 H Lactic Acid Calcium AST Alkaline Phosphatase CK-MB (CK-2) CK-MB (CK-2) Rel Index Albumin TSH Urine WBC (Auto) Salicylates 01/16/17 01/16/17 01/16/17 04:30 05:28 13:45 WBC RBC Hgb Hct MCV MCH RDW Plt Count Lymph % (Auto) [place] % (Auto) Eos % (Auto) Seg Neutrophils % Seg Neuts % (Manual) Lymphocytes % (Manual) Seg Neutrophils # Seg Neutrophils # Man Lymphocytes # (Manual) APTT POC ABG pH ABG pH 7.457 H POC ABG pCO2 POC ABG pO2 ABG pO2 55.1 L ABG HCO3 19.4 L ABG Base Excess -4.0 L ABG Hemoglobin 6.8 L VBG pH Oxyhemoglobin 94.9 L Sodium Potassium Chloride Carbon Dioxide BUN Creatinine Glucose POC Glucose 271 H 236 H Lactic Acid Calcium AST Alkaline Phosphatase CK-MB (CK-2) CK-MB (CK-2) Rel Index Albumin TSH Urine WBC (Auto) Salicylates 01/16/17 01/17/17 01/17/17 21:39 04:10 04:10 WBC 4.4 L RBC 2.98 L Hgb 7.7 L Hct 23.3 L MCV 78 L MCH 26 L RDW 18.1 H Plt Count Lymph % (Auto) [place] % (Auto) Eos % (Auto) Seg Neutrophils % Seg Neuts % (Manual) Lymphocytes % (Manual) Seg Neutrophils # Seg Neutrophils # Man Lymphocytes # (Manual) APTT POC ABG pH ABG pH POC ABG pCO2 POC ABG pO2 ABG pO2 ABG HCO3 ABG Base Excess ABG Hemoglobin VBG pH Oxyhemoglobin Sodium Potassium 3.3 L Chloride 108.7 H Carbon Dioxide 20 L BUN 8 L Creatinine Glucose 202 H POC Glucose 258 H Lactic Acid Calcium 7.6 L AST Alkaline Phosphatase CK-MB (CK-2) CK-MB (CK-2) Rel Index Albumin TSH Urine WBC (Auto) Salicylates 01/17/17 01/17/17 01/17/17 04:35 12:23 16:01 WBC RBC Hgb Hct MCV MCH RDW Plt Count Lymph % (Auto) [place] % (Auto) Eos % (Auto) Seg Neutrophils % Seg Neuts % (Manual) Lymphocytes % (Manual) Seg Neutrophils # Seg Neutrophils # Man Lymphocytes # (Manual) APTT POC ABG pH ABG pH POC ABG pCO2 POC ABG pO2 ABG pO2 160.3 H ABG HCO3 ABG Base Excess -2.3 L ABG Hemoglobin 7.9 L VBG pH Oxyhemoglobin Sodium Potassium Chloride Carbon Dioxide BUN Creatinine Glucose POC Glucose 321 H 239 H Lactic Acid Calcium AST Alkaline Phosphatase CK-MB (CK-2) CK-MB (CK-2) Rel Index Albumin TSH Urine WBC (Auto) Salicylates 01/18/17 01/18/17 01/18/17 05:07 12:09 17:54 WBC RBC Hgb Hct MCV MCH RDW Plt Count Lymph % (Auto) [place] % (Auto) Eos % (Auto) Seg Neutrophils % Seg Neuts % (Manual) Lymphocytes % (Manual) Seg Neutrophils # Seg Neutrophils # Man Lymphocytes # (Manual) APTT POC ABG pH ABG pH POC ABG pCO2 POC ABG pO2 ABG pO2 ABG HCO3 ABG Base Excess ABG Hemoglobin VBG pH Oxyhemoglobin Sodium Potassium Chloride Carbon Dioxide BUN Creatinine Glucose POC Glucose 155 H 203 H 132 H Lactic Acid Calcium AST Alkaline Phosphatase CK-MB (CK-2) CK-MB (CK-2) Rel Index Albumin TSH Urine WBC (Auto) Salicylates 01/18/17 01/19/17 01/19/17 23:43 04:28 12:11 WBC RBC Hgb Hct MCV MCH RDW Plt Count Lymph % (Auto) [place] % (Auto) Eos % (Auto) Seg Neutrophils % Seg Neuts % (Manual) Lymphocytes % (Manual) Seg Neutrophils # Seg Neutrophils # Man Lymphocytes # (Manual) APTT POC ABG pH ABG pH POC ABG pCO2 POC ABG pO2 ABG pO2 ABG HCO3 ABG Base Excess ABG Hemoglobin VBG pH Oxyhemoglobin Sodium Potassium Chloride Carbon Dioxide BUN Creatinine Glucose POC Glucose 125 H 182 H 153 H Lactic Acid Calcium AST Alkaline Phosphatase CK-MB (CK-2) CK-MB (CK-2) Rel Index Albumin TSH Urine WBC (Auto) Salicylates 01/19/17 01/20/17 01/20/17 17:23 00:12 05:44 WBC RBC Hgb Hct MCV MCH RDW Plt Count Lymph % (Auto) [place] % (Auto) Eos % (Auto) Seg Neutrophils % Seg Neuts % (Manual) Lymphocytes % (Manual) Seg Neutrophils # Seg Neutrophils # Man Lymphocytes # (Manual) APTT POC ABG pH ABG pH POC ABG pCO2 POC ABG pO2 ABG pO2 ABG HCO3 ABG Base Excess ABG Hemoglobin VBG pH Oxyhemoglobin Sodium Potassium Chloride Carbon Dioxide BUN Creatinine Glucose POC Glucose 66 L 139 H 176 H Lactic Acid Calcium AST Alkaline Phosphatase CK-MB (CK-2) CK-MB (CK-2) Rel Index Albumin TSH Urine WBC (Auto) Salicylates 01/20/17 01/20/17 01/20/17 11:48 17:42 23:43 WBC RBC Hgb Hct MCV MCH RDW Plt Count Lymph % (Auto) [place] % (Auto) Eos % (Auto) Seg Neutrophils % Seg Neuts % (Manual) Lymphocytes % (Manual) Seg Neutrophils # Seg Neutrophils # Man Lymphocytes # (Manual) APTT POC ABG pH ABG pH POC ABG pCO2 POC ABG pO2 ABG pO2 ABG HCO3 ABG Base Excess ABG Hemoglobin VBG pH Oxyhemoglobin Sodium Potassium Chloride Carbon Dioxide BUN Creatinine Glucose POC Glucose 218 H 132 H 178 H Lactic Acid Calcium AST Alkaline Phosphatase CK-MB (CK-2) CK-MB (CK-2) Rel Index Albumin TSH Urine WBC (Auto) Salicylates 01/21/17 01/21/17 01/21/17 05:34 11:17 23:37 WBC RBC Hgb Hct MCV MCH RDW Plt Count Lymph % (Auto) [place] % (Auto) Eos % (Auto) Seg Neutrophils % Seg Neuts % (Manual) Lymphocytes % (Manual) Seg Neutrophils # Seg Neutrophils # Man Lymphocytes # (Manual) APTT POC ABG pH ABG pH POC ABG pCO2 POC ABG pO2 ABG pO2 ABG HCO3 ABG Base Excess ABG Hemoglobin VBG pH Oxyhemoglobin Sodium Potassium Chloride Carbon Dioxide BUN Creatinine Glucose POC Glucose 106 H 213 H 140 H Lactic Acid Calcium AST Alkaline Phosphatase CK-MB (CK-2) CK-MB (CK-2) Rel Index Albumin TSH Urine WBC (Auto) Salicylates 01/22/17 01/22/17 01/22/17 04:00 04:00 04:58 WBC RBC 3.26 L Hgb 8.3 L Hct 25.5 L MCV 78 L MCH 25 L RDW 17.9 H Plt Count Lymph % (Auto) [place] % (Auto) 7.9 H Eos % (Auto) 6.2 H Seg Neutrophils % Seg Neuts % (Manual) Lymphocytes % (Manual) Seg Neutrophils # Seg Neutrophils # Man Lymphocytes # (Manual) APTT POC ABG pH ABG pH POC ABG pCO2 POC ABG pO2 ABG pO2 ABG HCO3 ABG Base Excess ABG Hemoglobin VBG pH Oxyhemoglobin Sodium Potassium Chloride 95.5 L Carbon Dioxide 31 H D BUN Creatinine Glucose 134 H POC Glucose 146 H Lactic Acid Calcium AST 44 H Alkaline Phosphatase 379 H CK-MB (CK-2) CK-MB (CK-2) Rel Index Albumin 2.7 L TSH Urine WBC (Auto) Salicylates 01/22/17 01/22/17 01/22/17 12:12 18:12 23:39 WBC RBC Hgb Hct MCV MCH RDW Plt Count Lymph % (Auto) [place] % (Auto) Eos % (Auto) Seg Neutrophils % Seg Neuts % (Manual) Lymphocytes % (Manual) Seg Neutrophils # Seg Neutrophils # Man Lymphocytes # (Manual) APTT POC ABG pH ABG pH POC ABG pCO2 POC ABG pO2 ABG pO2 ABG HCO3 ABG Base Excess ABG Hemoglobin VBG pH Oxyhemoglobin Sodium Potassium Chloride Carbon Dioxide BUN Creatinine Glucose POC Glucose 255 H 182 H 134 H Lactic Acid Calcium AST Alkaline Phosphatase CK-MB (CK-2) CK-MB (CK-2) Rel Index Albumin TSH Urine WBC (Auto) Salicylates 01/23/17 01/23/17 01/23/17 04:43 12:12 17:36 WBC RBC Hgb Hct MCV MCH RDW Plt Count Lymph % (Auto) [place] % (Auto) Eos % (Auto) Seg Neutrophils % Seg Neuts % (Manual) Lymphocytes % (Manual) Seg Neutrophils # Seg Neutrophils # Man Lymphocytes # (Manual) APTT POC ABG pH ABG pH POC ABG pCO2 POC ABG pO2 ABG pO2 ABG HCO3 ABG Base Excess ABG Hemoglobin VBG pH Oxyhemoglobin Sodium Potassium Chloride Carbon Dioxide BUN Creatinine Glucose POC Glucose 218 H 128 H 156 H Lactic Acid Calcium AST Alkaline Phosphatase CK-MB (CK-2) CK-MB (CK-2) Rel Index Albumin TSH Urine WBC (Auto) Salicylates 01/24/17 01/24/17 01/24/17 00:08 05:16 11:40 WBC RBC Hgb Hct MCV MCH RDW Plt Count Lymph % (Auto) [place] % (Auto) Eos % (Auto) Seg Neutrophils % Seg Neuts % (Manual) Lymphocytes % (Manual) Seg Neutrophils # Seg Neutrophils # Man Lymphocytes # (Manual) APTT POC ABG pH ABG pH POC ABG pCO2 POC ABG pO2 ABG pO2 ABG HCO3 ABG Base Excess ABG Hemoglobin VBG pH Oxyhemoglobin Sodium Potassium Chloride Carbon Dioxide BUN Creatinine Glucose POC Glucose 129 H 169 H 187 H Lactic Acid Calcium AST Alkaline Phosphatase CK-MB (CK-2) CK-MB (CK-2) Rel Index Albumin TSH Urine WBC (Auto) Salicylates 01/24/17 01/24/17 01/25/17 17:43 23:23 04:56 WBC RBC Hgb Hct MCV MCH RDW Plt Count Lymph % (Auto) [place] % (Auto) Eos % (Auto) Seg Neutrophils % Seg Neuts % (Manual) Lymphocytes % (Manual) Seg Neutrophils # Seg Neutrophils # Man Lymphocytes # (Manual) APTT POC ABG pH ABG pH POC ABG pCO2 POC ABG pO2 ABG pO2 ABG HCO3 ABG Base Excess ABG Hemoglobin VBG pH Oxyhemoglobin Sodium Potassium Chloride Carbon Dioxide BUN Creatinine Glucose POC Glucose 215 H 222 H 210 H Lactic Acid Calcium AST Alkaline Phosphatase CK-MB (CK-2) CK-MB (CK-2) Rel Index Albumin TSH Urine WBC (Auto) Salicylates 01/25/17 01/25/17 01/26/17 11:52 17:37 00:02 WBC RBC Hgb Hct MCV MCH RDW Plt Count Lymph % (Auto) [place] % (Auto) Eos % (Auto) Seg Neutrophils % Seg Neuts % (Manual) Lymphocytes % (Manual) Seg Neutrophils # Seg Neutrophils # Man Lymphocytes # (Manual) APTT POC ABG pH ABG pH POC ABG pCO2 POC ABG pO2 ABG pO2 ABG HCO3 ABG Base Excess ABG Hemoglobin VBG pH Oxyhemoglobin Sodium Potassium Chloride Carbon Dioxide BUN Creatinine Glucose POC Glucose 284 H 218 H 192 H Lactic Acid Calcium AST Alkaline Phosphatase CK-MB (CK-2) CK-MB (CK-2) Rel Index Albumin TSH Urine WBC (Auto) Salicylates 01/26/17 01/26/17 01/26/17 05:33 12:17 17:50 WBC RBC Hgb Hct MCV MCH RDW Plt Count Lymph % (Auto) [place] % (Auto) Eos % (Auto) Seg Neutrophils % Seg Neuts % (Manual) Lymphocytes % (Manual) Seg Neutrophils # Seg Neutrophils # Man Lymphocytes # (Manual) APTT POC ABG pH ABG pH POC ABG pCO2 POC ABG pO2 ABG pO2 ABG HCO3 ABG Base Excess ABG Hemoglobin VBG pH Oxyhemoglobin Sodium Potassium Chloride Carbon Dioxide BUN Creatinine Glucose POC Glucose 199 H 227 H 229 H Lactic Acid Calcium AST Alkaline Phosphatase CK-MB (CK-2) CK-MB (CK-2) Rel Index Albumin TSH Urine WBC (Auto) Salicylates 01/26/17 01/27/17 01/27/17 23:57 05:31 11:42 WBC RBC Hgb Hct MCV MCH RDW Plt Count Lymph % (Auto) [place] % (Auto) Eos % (Auto) Seg Neutrophils % Seg Neuts % (Manual) Lymphocytes % (Manual) Seg Neutrophils # Seg Neutrophils # Man Lymphocytes # (Manual) APTT POC ABG pH ABG pH POC ABG pCO2 POC ABG pO2 ABG pO2 ABG HCO3 ABG Base Excess ABG Hemoglobin VBG pH Oxyhemoglobin Sodium Potassium Chloride Carbon Dioxide BUN Creatinine Glucose POC Glucose 186 H 285 H 260 H Lactic Acid Calcium AST Alkaline Phosphatase CK-MB (CK-2) CK-MB (CK-2) Rel Index Albumin TSH Urine WBC (Auto) Salicylates 01/27/17 01/27/17 01/27/17 17:47 23:58 Unknown WBC 12.1 H RBC 3.28 L Hgb 8.5 L Hct 25.5 L MCV 78 L MCH 26 L RDW 16.8 H Plt Count 601 H Lymph % (Auto) [place] % (Auto) Eos % (Auto) Seg Neutrophils % Seg Neuts % (Manual) Lymphocytes % (Manual) Seg Neutrophils # Seg Neutrophils # Man Lymphocytes # (Manual) APTT POC ABG pH ABG pH POC ABG pCO2 POC ABG pO2 ABG pO2 ABG HCO3 ABG Base Excess ABG Hemoglobin VBG pH Oxyhemoglobin Sodium Potassium Chloride Carbon Dioxide BUN Creatinine Glucose POC Glucose 329 H 225 H Lactic Acid Calcium AST Alkaline Phosphatase CK-MB (CK-2) CK-MB (CK-2) Rel Index Albumin TSH Urine WBC (Auto) Salicylates 01/27/17 01/28/17 01/28/17 Unknown 03:44 03:44 WBC RBC 3.14 L Hgb 8.2 L Hct 24.1 L MCV 77 L MCH 26 L RDW 16.9 H Plt Count 567 H Lymph % (Auto) [place] % (Auto) Eos % (Auto) Seg Neutrophils % Seg Neuts % (Manual) Lymphocytes % (Manual) Seg Neutrophils # Seg Neutrophils # Man Lymphocytes # (Manual) APTT POC ABG pH ABG pH POC ABG pCO2 POC ABG pO2 ABG pO2 ABG HCO3 ABG Base Excess ABG Hemoglobin VBG pH Oxyhemoglobin Sodium 128 L Potassium 5.4 H Chloride 87.5 L Carbon Dioxide BUN 44 H 42 H Creatinine Glucose 250 H 128 H POC Glucose Lactic Acid Calcium AST Alkaline Phosphatase CK-MB (CK-2) CK-MB (CK-2) Rel Index Albumin TSH Urine WBC (Auto) Salicylates 01/28/17 01/28/17 01/28/17 11:43 16:47 17:52 WBC RBC Hgb Hct MCV MCH RDW Plt Count Lymph % (Auto) [place] % (Auto) Eos % (Auto) Seg Neutrophils % Seg Neuts % (Manual) Lymphocytes % (Manual) Seg Neutrophils # Seg Neutrophils # Man Lymphocytes # (Manual) APTT POC ABG pH ABG pH POC ABG pCO2 POC ABG pO2 ABG pO2 ABG HCO3 ABG Base Excess ABG Hemoglobin VBG pH Oxyhemoglobin Sodium Potassium Chloride Carbon Dioxide BUN Creatinine Glucose POC Glucose 351 H 249 H Lactic Acid Calcium AST Alkaline Phosphatase CK-MB (CK-2) CK-MB (CK-2) Rel Index Albumin TSH Urine WBC (Auto) > 182.0 H Salicylates 01/29/17 01/29/17 01/29/17 05:25 05:25 09:32 WBC 13.6 H RBC 3.25 L Hgb 8.3 L Hct 25.1 L MCV 77 L MCH 26 L RDW 16.8 H Plt Count 514 H Lymph % (Auto) [place] % (Auto) Eos % (Auto) Seg Neutrophils % Seg Neuts % (Manual) Lymphocytes % (Manual) Seg Neutrophils # Seg Neutrophils # Man Lymphocytes # (Manual) APTT POC ABG pH ABG pH POC ABG pCO2 POC ABG pO2 ABG pO2 ABG HCO3 ABG Base Excess ABG Hemoglobin VBG pH Oxyhemoglobin Sodium Potassium Chloride 97.8 L Carbon Dioxide BUN 34 H Creatinine Glucose 222 H POC Glucose Lactic Acid 2.50 H* Calcium AST Alkaline Phosphatase CK-MB (CK-2) CK-MB (CK-2) Rel Index Albumin TSH Urine WBC (Auto) Salicylates 01/29/17 01/29/17 01/29/17 11:56 18:11 23:55 WBC RBC Hgb Hct MCV MCH RDW Plt Count Lymph % (Auto) [place] % (Auto) Eos % (Auto) Seg Neutrophils % Seg Neuts % (Manual) Lymphocytes % (Manual) Seg Neutrophils # Seg Neutrophils # Man Lymphocytes # (Manual) APTT POC ABG pH ABG pH POC ABG pCO2 POC ABG pO2 ABG pO2 ABG HCO3 ABG Base Excess ABG Hemoglobin VBG pH Oxyhemoglobin Sodium Potassium Chloride Carbon Dioxide BUN Creatinine Glucose POC Glucose 261 H 215 H 176 H Lactic Acid Calcium AST Alkaline Phosphatase CK-MB (CK-2) CK-MB (CK-2) Rel Index Albumin TSH Urine WBC (Auto) Salicylates 01/30/17 01/30/17 01/30/17 05:31 05:31 05:34 WBC 15.2 H RBC 3.09 L Hgb 7.9 L Hct 23.9 L MCV 77 L MCH 26 L RDW 16.9 H Plt Count 569 H Lymph % (Auto) [place] % (Auto) Eos % (Auto) Seg Neutrophils % Seg Neuts % (Manual) Lymphocytes % (Manual) Seg Neutrophils # Seg Neutrophils # Man Lymphocytes # (Manual) APTT POC ABG pH ABG pH POC ABG pCO2 POC ABG pO2 ABG pO2 ABG HCO3 ABG Base Excess ABG Hemoglobin VBG pH Oxyhemoglobin Sodium Potassium Chloride Carbon Dioxide BUN 24 H Creatinine Glucose 235 H POC Glucose 243 H Lactic Acid Calcium AST Alkaline Phosphatase CK-MB (CK-2) CK-MB (CK-2) Rel Index Albumin TSH Urine WBC (Auto) Salicylates 01/30/17 01/30/17 01/30/17 11:38 17:58 23:29 WBC RBC Hgb Hct MCV MCH RDW Plt Count Lymph % (Auto) [place] % (Auto) Eos % (Auto) Seg Neutrophils % Seg Neuts % (Manual) Lymphocytes % (Manual) Seg Neutrophils # Seg Neutrophils # Man Lymphocytes # (Manual) APTT POC ABG pH ABG pH POC ABG pCO2 POC ABG pO2 ABG pO2 ABG HCO3 ABG Base Excess ABG Hemoglobin VBG pH Oxyhemoglobin Sodium Potassium Chloride Carbon Dioxide BUN Creatinine Glucose POC Glucose 298 H 208 H 245 H Lactic Acid Calcium AST Alkaline Phosphatase CK-MB (CK-2) CK-MB (CK-2) Rel Index Albumin TSH Urine WBC (Auto) Salicylates 01/31/17 01/31/17 01/31/17 04:39 04:39 05:57 WBC 11.4 H RBC 3.22 L Hgb 8.2 L Hct 24.9 L MCV 78 L MCH 25 L RDW 17.2 H Plt Count 576 H Lymph % (Auto) [place] % (Auto) Eos % (Auto) Seg Neutrophils % Seg Neuts % (Manual) Lymphocytes % (Manual) Seg Neutrophils # Seg Neutrophils # Man Lymphocytes # (Manual) APTT POC ABG pH ABG pH POC ABG pCO2 POC ABG pO2 ABG pO2 ABG HCO3 ABG Base Excess ABG Hemoglobin VBG pH Oxyhemoglobin Sodium Potassium Chloride Carbon Dioxide BUN Creatinine 0.7 L Glucose 223 H POC Glucose 264 H Lactic Acid Calcium AST Alkaline Phosphatase CK-MB (CK-2) CK-MB (CK-2) Rel Index Albumin TSH Urine WBC (Auto) Salicylates 01/31/17 01/31/17 01/31/17 12:23 17:41 18:55 WBC RBC Hgb Hct MCV MCH RDW Plt Count Lymph % (Auto) [place] % (Auto) Eos % (Auto) Seg Neutrophils % Seg Neuts % (Manual) Lymphocytes % (Manual) Seg Neutrophils # Seg Neutrophils # Man Lymphocytes # (Manual) APTT POC ABG pH ABG pH POC ABG pCO2 32.8 L POC ABG pO2 ABG pO2 ABG HCO3 ABG Base Excess ABG Hemoglobin VBG pH Oxyhemoglobin Sodium Potassium Chloride Carbon Dioxide BUN Creatinine Glucose POC Glucose 252 H 208 H Lactic Acid Calcium AST Alkaline Phosphatase CK-MB (CK-2) CK-MB (CK-2) Rel Index Albumin TSH Urine WBC (Auto) Salicylates 01/31/17 02/01/17 02/01/17 22:59 03:38 03:38 WBC RBC 2.81 L Hgb 7.4 L Hct 22.1 L MCV 79 L MCH 27 L RDW 17.0 H Plt Count 540 H Lymph % (Auto) [place] % (Auto) Eos % (Auto) Seg Neutrophils % Seg Neuts % (Manual) Lymphocytes % (Manual) Seg Neutrophils # Seg Neutrophils # Man Lymphocytes # (Manual) APTT POC ABG pH ABG pH POC ABG pCO2 POC ABG pO2 ABG pO2 ABG HCO3 ABG Base Excess ABG Hemoglobin VBG pH Oxyhemoglobin Sodium Potassium Chloride Carbon Dioxide 21 L BUN Creatinine 0.7 L Glucose POC Glucose 40 L Lactic Acid Calcium AST Alkaline Phosphatase CK-MB (CK-2) CK-MB (CK-2) Rel Index Albumin TSH Urine WBC (Auto) Salicylates 02/01/17 02/01/17 02/01/17 05:17 12:19 16:44 WBC RBC Hgb Hct MCV MCH RDW Plt Count Lymph % (Auto) [place] % (Auto) Eos % (Auto) Seg Neutrophils % Seg Neuts % (Manual) Lymphocytes % (Manual) Seg Neutrophils # Seg Neutrophils # Man Lymphocytes # (Manual) APTT POC ABG pH ABG pH POC ABG pCO2 POC ABG pO2 ABG pO2 ABG HCO3 ABG Base Excess ABG Hemoglobin VBG pH Oxyhemoglobin Sodium Potassium Chloride Carbon Dioxide BUN Creatinine Glucose POC Glucose 140 H 213 H 172 H Lactic Acid Calcium AST Alkaline Phosphatase CK-MB (CK-2) CK-MB (CK-2) Rel Index Albumin TSH Urine WBC (Auto) Salicylates 02/01/17 02/02/17 02/02/17 23:59 05:14 11:24 WBC RBC Hgb Hct MCV MCH RDW Plt Count Lymph % (Auto) [place] % (Auto) Eos % (Auto) Seg Neutrophils % Seg Neuts % (Manual) Lymphocytes % (Manual) Seg Neutrophils # Seg Neutrophils # Man Lymphocytes # (Manual) APTT POC ABG pH ABG pH POC ABG pCO2 POC ABG pO2 ABG pO2 ABG HCO3 ABG Base Excess ABG Hemoglobin VBG pH Oxyhemoglobin Sodium Potassium Chloride Carbon Dioxide BUN Creatinine Glucose POC Glucose 181 H 194 H 209 H Lactic Acid Calcium AST Alkaline Phosphatase CK-MB (CK-2) CK-MB (CK-2) Rel Index Albumin TSH Urine WBC (Auto) Salicylates 02/02/17 02/02/17 02/02/17 11:46 11:46 17:47 WBC RBC 2.94 L Hgb 7.5 L Hct 23.0 L MCV 78 L MCH 25 L RDW 16.9 H Plt Count 520 H Lymph % (Auto) [place] % (Auto) Eos % (Auto) Seg Neutrophils % Seg Neuts % (Manual) Lymphocytes % (Manual) Seg Neutrophils # Seg Neutrophils # Man Lymphocytes # (Manual) APTT POC ABG pH ABG pH POC ABG pCO2 POC ABG pO2 ABG pO2 ABG HCO3 ABG Base Excess ABG Hemoglobin VBG pH Oxyhemoglobin Sodium Potassium Chloride Carbon Dioxide BUN Creatinine 0.6 L Glucose 189 H POC Glucose 147 H Lactic Acid Calcium 8.1 L AST Alkaline Phosphatase CK-MB (CK-2) CK-MB (CK-2) Rel Index Albumin TSH Urine WBC (Auto) Salicylates 02/02/17 02/03/17 02/03/17 23:32 05:53 11:19 WBC RBC Hgb Hct MCV MCH RDW Plt Count Lymph % (Auto) [place] % (Auto) Eos % (Auto) Seg Neutrophils % Seg Neuts % (Manual) Lymphocytes % (Manual) Seg Neutrophils # Seg Neutrophils # Man Lymphocytes # (Manual) APTT POC ABG pH ABG pH POC ABG pCO2 POC ABG pO2 ABG pO2 ABG HCO3 ABG Base Excess ABG Hemoglobin VBG pH Oxyhemoglobin Sodium Potassium Chloride Carbon Dioxide BUN Creatinine Glucose POC Glucose 176 H 224 H 228 H Lactic Acid Calcium AST Alkaline Phosphatase CK-MB (CK-2) CK-MB (CK-2) Rel Index Albumin TSH Urine WBC (Auto) Salicylates 02/03/17 02/03/17 02/04/17 16:59 23:38 05:45 WBC RBC Hgb Hct MCV MCH RDW Plt Count Lymph % (Auto) [place] % (Auto) Eos % (Auto) Seg Neutrophils % Seg Neuts % (Manual) Lymphocytes % (Manual) Seg Neutrophils # Seg Neutrophils # Man Lymphocytes # (Manual) APTT POC ABG pH ABG pH POC ABG pCO2 POC ABG pO2 ABG pO2 ABG HCO3 ABG Base Excess ABG Hemoglobin VBG pH Oxyhemoglobin Sodium Potassium Chloride Carbon Dioxide BUN Creatinine Glucose POC Glucose 189 H 191 H 251 H Lactic Acid Calcium AST Alkaline Phosphatase CK-MB (CK-2) CK-MB (CK-2) Rel Index Albumin TSH Urine WBC (Auto) Salicylates 02/04/17 02/04/17 02/05/17 11:20 17:20 00:17 WBC RBC Hgb Hct MCV MCH RDW Plt Count Lymph % (Auto) [place] % (Auto) Eos % (Auto) Seg Neutrophils % Seg Neuts % (Manual) Lymphocytes % (Manual) Seg Neutrophils # Seg Neutrophils # Man Lymphocytes # (Manual) APTT POC ABG pH ABG pH POC ABG pCO2 POC ABG pO2 ABG pO2 ABG HCO3 ABG Base Excess ABG Hemoglobin VBG pH Oxyhemoglobin Sodium Potassium Chloride Carbon Dioxide BUN Creatinine Glucose POC Glucose 243 H 163 H 200 H Lactic Acid Calcium AST Alkaline Phosphatase CK-MB (CK-2) CK-MB (CK-2) Rel Index Albumin TSH Urine WBC (Auto) Salicylates 02/05/17 02/05/17 02/05/17 05:38 12:38 16:29 WBC RBC Hgb Hct MCV MCH RDW Plt Count Lymph % (Auto) [place] % (Auto) Eos % (Auto) Seg Neutrophils % Seg Neuts % (Manual) Lymphocytes % (Manual) Seg Neutrophils # Seg Neutrophils # Man Lymphocytes # (Manual) APTT POC ABG pH ABG pH POC ABG pCO2 POC ABG pO2 ABG pO2 ABG HCO3 ABG Base Excess ABG Hemoglobin VBG pH Oxyhemoglobin Sodium Potassium Chloride Carbon Dioxide BUN Creatinine Glucose POC Glucose 248 H 241 H 257 H Lactic Acid Calcium AST Alkaline Phosphatase CK-MB (CK-2) CK-MB (CK-2) Rel Index Albumin TSH Urine WBC (Auto) Salicylates 02/05/17 02/06/17 02/06/17 23:56 05:30 11:50 WBC RBC Hgb Hct MCV MCH RDW Plt Count Lymph % (Auto) [place] % (Auto) Eos % (Auto) Seg Neutrophils % Seg Neuts % (Manual) Lymphocytes % (Manual) Seg Neutrophils # Seg Neutrophils # Man Lymphocytes # (Manual) APTT POC ABG pH ABG pH POC ABG pCO2 POC ABG pO2 ABG pO2 ABG HCO3 ABG Base Excess ABG Hemoglobin VBG pH Oxyhemoglobin Sodium Potassium Chloride Carbon Dioxide BUN Creatinine Glucose POC Glucose 258 H 120 H 254 H Lactic Acid Calcium AST Alkaline Phosphatase CK-MB (CK-2) CK-MB (CK-2) Rel Index Albumin TSH Urine WBC (Auto) Salicylates 02/06/17 02/06/17 02/07/17 17:11 23:50 05:22 WBC RBC Hgb Hct MCV MCH RDW Plt Count Lymph % (Auto) [place] % (Auto) Eos % (Auto) Seg Neutrophils % Seg Neuts % (Manual) Lymphocytes % (Manual) Seg Neutrophils # Seg Neutrophils # Man Lymphocytes # (Manual) APTT POC ABG pH ABG pH POC ABG pCO2 POC ABG pO2 ABG pO2 ABG HCO3 ABG Base Excess ABG Hemoglobin VBG pH Oxyhemoglobin Sodium Potassium Chloride Carbon Dioxide BUN Creatinine Glucose POC Glucose 149 H 240 H 258 H Lactic Acid Calcium AST Alkaline Phosphatase CK-MB (CK-2) CK-MB (CK-2) Rel Index Albumin TSH Urine WBC (Auto) Salicylates 02/07/17 02/07/17 02/07/17 11:15 18:33 23:59 WBC RBC Hgb Hct MCV MCH RDW Plt Count Lymph % (Auto) [place] % (Auto) Eos % (Auto) Seg Neutrophils % Seg Neuts % (Manual) Lymphocytes % (Manual) Seg Neutrophils # Seg Neutrophils # Man Lymphocytes # (Manual) APTT POC ABG pH ABG pH POC ABG pCO2 POC ABG pO2 ABG pO2 ABG HCO3 ABG Base Excess ABG Hemoglobin VBG pH Oxyhemoglobin Sodium Potassium Chloride Carbon Dioxide BUN Creatinine Glucose POC Glucose 239 H 176 H 186 H Lactic Acid Calcium AST Alkaline Phosphatase CK-MB (CK-2) CK-MB (CK-2) Rel Index Albumin TSH Urine WBC (Auto) Salicylates 02/08/17 02/08/17 02/08/17 06:15 11:55 16:55 WBC RBC Hgb Hct MCV MCH RDW Plt Count Lymph % (Auto) [place] % (Auto) Eos % (Auto) Seg Neutrophils % Seg Neuts % (Manual) Lymphocytes % (Manual) Seg Neutrophils # Seg Neutrophils # Man Lymphocytes # (Manual) APTT POC ABG pH ABG pH POC ABG pCO2 POC ABG pO2 ABG pO2 ABG HCO3 ABG Base Excess ABG Hemoglobin VBG pH Oxyhemoglobin Sodium Potassium Chloride Carbon Dioxide BUN Creatinine Glucose POC Glucose 195 H 129 H 246 H Lactic Acid Calcium AST Alkaline Phosphatase CK-MB (CK-2) CK-MB (CK-2) Rel Index Albumin TSH Urine WBC (Auto) Salicylates 02/08/17 02/09/17 02/09/17 23:51 05:51 07:24 WBC 14.7 H RBC 3.39 L Hgb 8.9 L Hct 26.4 L MCV 78 L MCH 26 L RDW 18.4 H Plt Count 670 H Lymph % (Auto) 11.8 L [place] % (Auto) Eos % (Auto) Seg Neutrophils % 81.2 H Seg Neuts % (Manual) Lymphocytes % (Manual) Seg Neutrophils # 11.9 H Seg Neutrophils # Man Lymphocytes # (Manual) APTT POC ABG pH ABG pH POC ABG pCO2 POC ABG pO2 ABG pO2 ABG HCO3 ABG Base Excess ABG Hemoglobin VBG pH Oxyhemoglobin Sodium Potassium Chloride Carbon Dioxide BUN Creatinine Glucose POC Glucose 262 H 295 H Lactic Acid Calcium AST Alkaline Phosphatase CK-MB (CK-2) CK-MB (CK-2) Rel Index Albumin TSH Urine WBC (Auto) Salicylates 02/09/17 02/09/17 02/09/17 07:24 12:08 18:39 WBC RBC Hgb Hct MCV MCH RDW Plt Count Lymph % (Auto) [place] % (Auto) Eos % (Auto) Seg Neutrophils % Seg Neuts % (Manual) Lymphocytes % (Manual) Seg Neutrophils # Seg Neutrophils # Man Lymphocytes # (Manual) APTT POC ABG pH ABG pH POC ABG pCO2 POC ABG pO2 ABG pO2 ABG HCO3 ABG Base Excess ABG Hemoglobin VBG pH Oxyhemoglobin Sodium Potassium Chloride 95.5 L Carbon Dioxide BUN 52 H Creatinine Glucose 277 H POC Glucose 236 H 151 H Lactic Acid Calcium AST Alkaline Phosphatase CK-MB (CK-2) CK-MB (CK-2) Rel Index Albumin TSH Urine WBC (Auto) Salicylates 02/10/17 02/10/17 02/10/17 00:01 05:44 11:21 WBC RBC Hgb Hct MCV MCH RDW Plt Count Lymph % (Auto) [place] % (Auto) Eos % (Auto) Seg Neutrophils % Seg Neuts % (Manual) Lymphocytes % (Manual) Seg Neutrophils # Seg Neutrophils # Man Lymphocytes # (Manual) APTT POC ABG pH ABG pH POC ABG pCO2 POC ABG pO2 ABG pO2 ABG HCO3 ABG Base Excess ABG Hemoglobin VBG pH Oxyhemoglobin Sodium Potassium Chloride Carbon Dioxide BUN Creatinine Glucose POC Glucose 210 H 201 H 233 H Lactic Acid Calcium AST Alkaline Phosphatase CK-MB (CK-2) CK-MB (CK-2) Rel Index Albumin TSH Urine WBC (Auto) Salicylates 02/10/17 02/10/17 02/11/17 17:29 23:56 05:24 WBC RBC Hgb Hct MCV MCH RDW Plt Count Lymph % (Auto) [place] % (Auto) Eos % (Auto) Seg Neutrophils % Seg Neuts % (Manual) Lymphocytes % (Manual) Seg Neutrophils # Seg Neutrophils # Man Lymphocytes # (Manual) APTT POC ABG pH ABG pH POC ABG pCO2 POC ABG pO2 ABG pO2 ABG HCO3 ABG Base Excess ABG Hemoglobin VBG pH Oxyhemoglobin Sodium Potassium Chloride Carbon Dioxide BUN Creatinine Glucose POC Glucose 167 H 191 H 135 H Lactic Acid Calcium AST Alkaline Phosphatase CK-MB (CK-2) CK-MB (CK-2) Rel Index Albumin TSH Urine WBC (Auto) Salicylates 02/11/17 02/11/17 02/11/17 12:25 17:03 23:59 WBC RBC Hgb Hct MCV MCH RDW Plt Count Lymph % (Auto) [place] % (Auto) Eos % (Auto) Seg Neutrophils % Seg Neuts % (Manual) Lymphocytes % (Manual) Seg Neutrophils # Seg Neutrophils # Man Lymphocytes # (Manual) APTT POC ABG pH ABG pH POC ABG pCO2 POC ABG pO2 ABG pO2 ABG HCO3 ABG Base Excess ABG Hemoglobin VBG pH Oxyhemoglobin Sodium Potassium Chloride Carbon Dioxide BUN Creatinine Glucose POC Glucose 275 H 172 H 215 H Lactic Acid Calcium AST Alkaline Phosphatase CK-MB (CK-2) CK-MB (CK-2) Rel Index Albumin TSH Urine WBC (Auto) Salicylates 02/12/17 02/12/17 02/12/17 05:39 11:33 17:55 WBC RBC Hgb Hct MCV MCH RDW Plt Count Lymph % (Auto) [place] % (Auto) Eos % (Auto) Seg Neutrophils % Seg Neuts % (Manual) Lymphocytes % (Manual) Seg Neutrophils # Seg Neutrophils # Man Lymphocytes # (Manual) APTT POC ABG pH ABG pH POC ABG pCO2 POC ABG pO2 ABG pO2 ABG HCO3 ABG Base Excess ABG Hemoglobin VBG pH Oxyhemoglobin Sodium Potassium Chloride Carbon Dioxide BUN Creatinine Glucose POC Glucose 261 H 217 H 172 H Lactic Acid Calcium AST Alkaline Phosphatase CK-MB (CK-2) CK-MB (CK-2) Rel Index Albumin TSH Urine WBC (Auto) Salicylates 02/13/17 02/13/17 02/13/17 00:25 06:46 11:26 WBC RBC Hgb Hct MCV MCH RDW Plt Count Lymph % (Auto) [place] % (Auto) Eos % (Auto) Seg Neutrophils % Seg Neuts % (Manual) Lymphocytes % (Manual) Seg Neutrophils # Seg Neutrophils # Man Lymphocytes # (Manual) APTT POC ABG pH ABG pH POC ABG pCO2 POC ABG pO2 ABG pO2 ABG HCO3 ABG Base Excess ABG Hemoglobin VBG pH Oxyhemoglobin Sodium Potassium Chloride Carbon Dioxide BUN Creatinine Glucose POC Glucose 207 H 219 H 231 H Lactic Acid Calcium AST Alkaline Phosphatase CK-MB (CK-2) CK-MB (CK-2) Rel Index Albumin TSH Urine WBC (Auto) Salicylates 02/13/17 02/13/17 02/14/17 17:12 23:44 05:44 WBC RBC Hgb Hct MCV MCH RDW Plt Count Lymph % (Auto) [place] % (Auto) Eos % (Auto) Seg Neutrophils % Seg Neuts % (Manual) Lymphocytes % (Manual) Seg Neutrophils # Seg Neutrophils # Man Lymphocytes # (Manual) APTT POC ABG pH ABG pH POC ABG pCO2 POC ABG pO2 ABG pO2 ABG HCO3 ABG Base Excess ABG Hemoglobin VBG pH Oxyhemoglobin Sodium Potassium Chloride Carbon Dioxide BUN Creatinine Glucose POC Glucose 190 H 256 H 184 H Lactic Acid Calcium AST Alkaline Phosphatase CK-MB (CK-2) CK-MB (CK-2) Rel Index Albumin TSH Urine WBC (Auto) Salicylates 02/14/17 02/14/17 02/14/17 12:21 17:57 23:18 WBC RBC Hgb Hct MCV MCH RDW Plt Count Lymph % (Auto) [place] % (Auto) Eos % (Auto) Seg Neutrophils % Seg Neuts % (Manual) Lymphocytes % (Manual) Seg Neutrophils # Seg Neutrophils # Man Lymphocytes # (Manual) APTT POC ABG pH ABG pH POC ABG pCO2 POC ABG pO2 ABG pO2 ABG HCO3 ABG Base Excess ABG Hemoglobin VBG pH Oxyhemoglobin Sodium Potassium Chloride Carbon Dioxide BUN Creatinine Glucose POC Glucose 233 H 155 H 165 H Lactic Acid Calcium AST Alkaline Phosphatase CK-MB (CK-2) CK-MB (CK-2) Rel Index Albumin TSH Urine WBC (Auto) Salicylates 02/15/17 02/15/17 02/15/17 05:33 11:45 17:20 WBC RBC Hgb Hct MCV MCH RDW Plt Count Lymph % (Auto) [place] % (Auto) Eos % (Auto) Seg Neutrophils % Seg Neuts % (Manual) Lymphocytes % (Manual) Seg Neutrophils # Seg Neutrophils # Man Lymphocytes # (Manual) APTT POC ABG pH ABG pH POC ABG pCO2 POC ABG pO2 ABG pO2 ABG HCO3 ABG Base Excess ABG Hemoglobin VBG pH Oxyhemoglobin Sodium Potassium Chloride Carbon Dioxide BUN Creatinine Glucose POC Glucose 239 H 130 H 189 H Lactic Acid Calcium AST Alkaline Phosphatase CK-MB (CK-2) CK-MB (CK-2) Rel Index Albumin TSH Urine WBC (Auto) Salicylates 02/16/17 02/16/17 02/16/17 00:14 05:09 12:31 WBC RBC Hgb Hct MCV MCH RDW Plt Count Lymph % (Auto) [place] % (Auto) Eos % (Auto) Seg Neutrophils % Seg Neuts % (Manual) Lymphocytes % (Manual) Seg Neutrophils # Seg Neutrophils # Man Lymphocytes # (Manual) APTT POC ABG pH ABG pH POC ABG pCO2 POC ABG pO2 ABG pO2 ABG HCO3 ABG Base Excess ABG Hemoglobin VBG pH Oxyhemoglobin Sodium Potassium Chloride Carbon Dioxide BUN Creatinine Glucose POC Glucose 197 H 226 H 178 H Lactic Acid Calcium AST Alkaline Phosphatase CK-MB (CK-2) CK-MB (CK-2) Rel Index Albumin TSH Urine WBC (Auto) Salicylates 02/16/17 02/16/17 02/17/17 16:35 23:49 05:37 WBC RBC Hgb Hct MCV MCH RDW Plt Count Lymph % (Auto) [place] % (Auto) Eos % (Auto) Seg Neutrophils % Seg Neuts % (Manual) Lymphocytes % (Manual) Seg Neutrophils # Seg Neutrophils # Man Lymphocytes # (Manual) APTT POC ABG pH ABG pH POC ABG pCO2 POC ABG pO2 ABG pO2 ABG HCO3 ABG Base Excess ABG Hemoglobin VBG pH Oxyhemoglobin Sodium Potassium Chloride Carbon Dioxide BUN Creatinine Glucose POC Glucose 174 H 62 L 153 H Lactic Acid Calcium AST Alkaline Phosphatase CK-MB (CK-2) CK-MB (CK-2) Rel Index Albumin TSH Urine WBC (Auto) Salicylates 02/17/17 02/17/17 02/17/17 11:39 17:02 22:24 WBC RBC Hgb Hct MCV MCH RDW Plt Count Lymph % (Auto) [place] % (Auto) Eos % (Auto) Seg Neutrophils % Seg Neuts % (Manual) Lymphocytes % (Manual) Seg Neutrophils # Seg Neutrophils # Man Lymphocytes # (Manual) APTT POC ABG pH ABG pH POC ABG pCO2 POC ABG pO2 ABG pO2 ABG HCO3 ABG Base Excess ABG Hemoglobin VBG pH Oxyhemoglobin Sodium Potassium Chloride Carbon Dioxide BUN Creatinine Glucose POC Glucose 231 H 112 H 116 H Lactic Acid Calcium AST Alkaline Phosphatase CK-MB (CK-2) CK-MB (CK-2) Rel Index Albumin TSH Urine WBC (Auto) Salicylates 02/18/17 02/19/17 02/19/17 15:34 05:09 07:57 WBC RBC Hgb Hct MCV MCH RDW Plt Count Lymph % (Auto) [place] % (Auto) Eos % (Auto) Seg Neutrophils % Seg Neuts % (Manual) Lymphocytes % (Manual) Seg Neutrophils # Seg Neutrophils # Man Lymphocytes # (Manual) APTT POC ABG pH ABG pH POC ABG pCO2 POC ABG pO2 ABG pO2 ABG HCO3 ABG Base Excess ABG Hemoglobin VBG pH Oxyhemoglobin Sodium Potassium Chloride Carbon Dioxide BUN Creatinine Glucose POC Glucose 215 H 218 H 283 H Lactic Acid Calcium AST Alkaline Phosphatase CK-MB (CK-2) CK-MB (CK-2) Rel Index Albumin TSH Urine WBC (Auto) Salicylates 02/19/17 02/19/17 02/20/17 14:49 22:10 05:10 WBC RBC Hgb Hct MCV MCH RDW Plt Count Lymph % (Auto) [place] % (Auto) Eos % (Auto) Seg Neutrophils % Seg Neuts % (Manual) Lymphocytes % (Manual) Seg Neutrophils # Seg Neutrophils # Man Lymphocytes # (Manual) APTT POC ABG pH ABG pH POC ABG pCO2 POC ABG pO2 ABG pO2 ABG HCO3 ABG Base Excess ABG Hemoglobin VBG pH Oxyhemoglobin Sodium Potassium Chloride Carbon Dioxide BUN Creatinine Glucose POC Glucose 290 H 169 H 209 H Lactic Acid Calcium AST Alkaline Phosphatase CK-MB (CK-2) CK-MB (CK-2) Rel Index Albumin TSH Urine WBC (Auto) Salicylates 02/20/17 02/20/17 02/21/17 15:05 21:52 02:00 WBC RBC Hgb Hct MCV MCH RDW Plt Count Lymph % (Auto) [place] % (Auto) Eos % (Auto) Seg Neutrophils % Seg Neuts % (Manual) Lymphocytes % (Manual) Seg Neutrophils # Seg Neutrophils # Man Lymphocytes # (Manual) APTT POC ABG pH ABG pH POC ABG pCO2 POC ABG pO2 ABG pO2 ABG HCO3 ABG Base Excess ABG Hemoglobin VBG pH Oxyhemoglobin Sodium Potassium Chloride Carbon Dioxide BUN Creatinine Glucose POC Glucose 172 H 209 H 216 H Lactic Acid Calcium AST Alkaline Phosphatase CK-MB (CK-2) CK-MB (CK-2) Rel Index Albumin TSH Urine WBC (Auto) Salicylates 02/21/17 02/21/17 02/21/17 04:54 14:43 17:47 WBC RBC Hgb Hct MCV MCH RDW Plt Count Lymph % (Auto) [place] % (Auto) Eos % (Auto) Seg Neutrophils % Seg Neuts % (Manual) Lymphocytes % (Manual) Seg Neutrophils # Seg Neutrophils # Man Lymphocytes # (Manual) APTT POC ABG pH ABG pH POC ABG pCO2 POC ABG pO2 ABG pO2 ABG HCO3 ABG Base Excess ABG Hemoglobin VBG pH Oxyhemoglobin Sodium Potassium Chloride Carbon Dioxide BUN Creatinine Glucose POC Glucose 227 H 290 H 220 H Lactic Acid Calcium AST Alkaline Phosphatase CK-MB (CK-2) CK-MB (CK-2) Rel Index Albumin TSH Urine WBC (Auto) Salicylates 02/21/17 02/22/17 02/22/17 22:02 04:52 15:25 WBC RBC Hgb Hct MCV MCH RDW Plt Count Lymph % (Auto) [place] % (Auto) Eos % (Auto) Seg Neutrophils % Seg Neuts % (Manual) Lymphocytes % (Manual) Seg Neutrophils # Seg Neutrophils # Man Lymphocytes # (Manual) APTT POC ABG pH ABG pH POC ABG pCO2 POC ABG pO2 ABG pO2 ABG HCO3 ABG Base Excess ABG Hemoglobin VBG pH Oxyhemoglobin Sodium Potassium Chloride Carbon Dioxide BUN Creatinine Glucose POC Glucose 246 H 212 H 236 H Lactic Acid Calcium AST Alkaline Phosphatase CK-MB (CK-2) CK-MB (CK-2) Rel Index Albumin TSH Urine WBC (Auto) Salicylates 02/22/17 02/23/17 02/23/17 21:33 06:04 10:00 WBC RBC Hgb Hct MCV MCH RDW Plt Count Lymph % (Auto) [place] % (Auto) Eos % (Auto) Seg Neutrophils % Seg Neuts % (Manual) Lymphocytes % (Manual) Seg Neutrophils # Seg Neutrophils # Man Lymphocytes # (Manual) APTT POC ABG pH ABG pH POC ABG pCO2 POC ABG pO2 ABG pO2 ABG HCO3 ABG Base Excess ABG Hemoglobin VBG pH Oxyhemoglobin Sodium Potassium Chloride Carbon Dioxide BUN Creatinine Glucose POC Glucose 255 H 208 H 174 H Lactic Acid Calcium AST Alkaline Phosphatase CK-MB (CK-2) CK-MB (CK-2) Rel Index Albumin TSH Urine WBC (Auto) Salicylates 02/23/17 02/23/17 02/23/17 12:52 17:15 21:51 WBC RBC Hgb Hct MCV MCH RDW Plt Count Lymph % (Auto) [place] % (Auto) Eos % (Auto) Seg Neutrophils % Seg Neuts % (Manual) Lymphocytes % (Manual) Seg Neutrophils # Seg Neutrophils # Man Lymphocytes # (Manual) APTT POC ABG pH ABG pH POC ABG pCO2 POC ABG pO2 ABG pO2 ABG HCO3 ABG Base Excess ABG Hemoglobin VBG pH Oxyhemoglobin Sodium Potassium Chloride Carbon Dioxide BUN Creatinine Glucose POC Glucose 203 H 269 H 205 H Lactic Acid Calcium AST Alkaline Phosphatase CK-MB (CK-2) CK-MB (CK-2) Rel Index Albumin TSH Urine WBC (Auto) Salicylates 02/24/17 02/24/17 02/24/17 10:23 17:45 21:24 WBC RBC Hgb Hct MCV MCH RDW Plt Count Lymph % (Auto) [place] % (Auto) Eos % (Auto) Seg Neutrophils % Seg Neuts % (Manual) Lymphocytes % (Manual) Seg Neutrophils # Seg Neutrophils # Man Lymphocytes # (Manual) APTT POC ABG pH ABG pH POC ABG pCO2 POC ABG pO2 ABG pO2 ABG HCO3 ABG Base Excess ABG Hemoglobin VBG pH Oxyhemoglobin Sodium Potassium Chloride Carbon Dioxide BUN Creatinine Glucose POC Glucose 280 H 239 H 254 H Lactic Acid Calcium AST Alkaline Phosphatase CK-MB (CK-2) CK-MB (CK-2) Rel Index Albumin TSH Urine WBC (Auto) Salicylates 02/25/17 02/25/17 02/25/17 02:12 05:17 14:32 WBC RBC Hgb Hct MCV MCH RDW Plt Count Lymph % (Auto) [place] % (Auto) Eos % (Auto) Seg Neutrophils % Seg Neuts % (Manual) Lymphocytes % (Manual) Seg Neutrophils # Seg Neutrophils # Man Lymphocytes # (Manual) APTT POC ABG pH ABG pH POC ABG pCO2 POC ABG pO2 ABG pO2 ABG HCO3 ABG Base Excess ABG Hemoglobin VBG pH Oxyhemoglobin Sodium Potassium Chloride Carbon Dioxide BUN Creatinine Glucose POC Glucose 296 H 332 H 353 H Lactic Acid Calcium AST Alkaline Phosphatase CK-MB (CK-2) CK-MB (CK-2) Rel Index Albumin TSH Urine WBC (Auto) Salicylates 02/25/17 02/26/17 02/26/17 22:14 00:37 05:52 WBC RBC Hgb Hct MCV MCH RDW Plt Count Lymph % (Auto) [place] % (Auto) Eos % (Auto) Seg Neutrophils % Seg Neuts % (Manual) Lymphocytes % (Manual) Seg Neutrophils # Seg Neutrophils # Man Lymphocytes # (Manual) APTT POC ABG pH ABG pH POC ABG pCO2 POC ABG pO2 ABG pO2 ABG HCO3 ABG Base Excess ABG Hemoglobin VBG pH Oxyhemoglobin Sodium Potassium Chloride Carbon Dioxide BUN Creatinine Glucose POC Glucose 201 H 233 H 269 H Lactic Acid Calcium AST Alkaline Phosphatase CK-MB (CK-2) CK-MB (CK-2) Rel Index Albumin TSH Urine WBC (Auto) Salicylates 02/26/17 02/26/17 02/26/17 11:48 13:49 21:26 WBC RBC Hgb Hct MCV MCH RDW Plt Count Lymph % (Auto) [place] % (Auto) Eos % (Auto) Seg Neutrophils % Seg Neuts % (Manual) Lymphocytes % (Manual) Seg Neutrophils # Seg Neutrophils # Man Lymphocytes # (Manual) APTT POC ABG pH ABG pH POC ABG pCO2 POC ABG pO2 ABG pO2 ABG HCO3 ABG Base Excess ABG Hemoglobin VBG pH Oxyhemoglobin Sodium Potassium Chloride Carbon Dioxide BUN Creatinine Glucose POC Glucose 333 H 322 H 244 H Lactic Acid Calcium AST Alkaline Phosphatase CK-MB (CK-2) CK-MB (CK-2) Rel Index Albumin TSH Urine WBC (Auto) Salicylates 02/27/17 02/27/17 02/27/17 05:27 13:51 21:48 WBC RBC Hgb Hct MCV MCH RDW Plt Count Lymph % (Auto) [place] % (Auto) Eos % (Auto) Seg Neutrophils % Seg Neuts % (Manual) Lymphocytes % (Manual) Seg Neutrophils # Seg Neutrophils # Man Lymphocytes # (Manual) APTT POC ABG pH ABG pH POC ABG pCO2 POC ABG pO2 ABG pO2 ABG HCO3 ABG Base Excess ABG Hemoglobin VBG pH Oxyhemoglobin Sodium Potassium Chloride Carbon Dioxide BUN Creatinine Glucose POC Glucose 217 H 239 H 254 H Lactic Acid Calcium AST Alkaline Phosphatase CK-MB (CK-2) CK-MB (CK-2) Rel Index Albumin TSH Urine WBC (Auto) Salicylates 02/28/17 02/28/17 02/28/17 05:38 11:00 19:44 WBC RBC Hgb Hct MCV MCH RDW Plt Count Lymph % (Auto) [place] % (Auto) Eos % (Auto) Seg Neutrophils % Seg Neuts % (Manual) Lymphocytes % (Manual) Seg Neutrophils # Seg Neutrophils # Man Lymphocytes # (Manual) APTT POC ABG pH ABG pH POC ABG pCO2 POC ABG pO2 ABG pO2 ABG HCO3 ABG Base Excess ABG Hemoglobin VBG pH Oxyhemoglobin Sodium Potassium Chloride Carbon Dioxide BUN Creatinine Glucose POC Glucose 325 H 203 H 116 H Lactic Acid Calcium AST Alkaline Phosphatase CK-MB (CK-2) CK-MB (CK-2) Rel Index Albumin TSH Urine WBC (Auto) Salicylates 03/01/17 03/01/17 03/01/17 00:08 05:31 12:17 WBC RBC Hgb Hct MCV MCH RDW Plt Count Lymph % (Auto) [place] % (Auto) Eos % (Auto) Seg Neutrophils % Seg Neuts % (Manual) Lymphocytes % (Manual) Seg Neutrophils # Seg Neutrophils # Man Lymphocytes # (Manual) APTT POC ABG pH ABG pH POC ABG pCO2 POC ABG pO2 ABG pO2 ABG HCO3 ABG Base Excess ABG Hemoglobin VBG pH Oxyhemoglobin Sodium Potassium Chloride Carbon Dioxide BUN Creatinine Glucose POC Glucose 202 H 183 H 184 H Lactic Acid Calcium AST Alkaline Phosphatase CK-MB (CK-2) CK-MB (CK-2) Rel Index Albumin TSH Urine WBC (Auto) Salicylates 03/02/17 03/02/17 03/02/17 00:12 05:58 18:22 WBC RBC Hgb Hct MCV MCH RDW Plt Count Lymph % (Auto) [place] % (Auto) Eos % (Auto) Seg Neutrophils % Seg Neuts % (Manual) Lymphocytes % (Manual) Seg Neutrophils # Seg Neutrophils # Man Lymphocytes # (Manual) APTT POC ABG pH ABG pH POC ABG pCO2 POC ABG pO2 ABG pO2 ABG HCO3 ABG Base Excess ABG Hemoglobin VBG pH Oxyhemoglobin Sodium Potassium Chloride Carbon Dioxide BUN Creatinine Glucose POC Glucose 117 H 176 H 156 H Lactic Acid Calcium AST Alkaline Phosphatase CK-MB (CK-2) CK-MB (CK-2) Rel Index Albumin TSH Urine WBC (Auto) Salicylates 03/02/17 03/03/17 03/03/17 23:51 05:44 11:32 WBC RBC Hgb Hct MCV MCH RDW Plt Count Lymph % (Auto) [place] % (Auto) Eos % (Auto) Seg Neutrophils % Seg Neuts % (Manual) Lymphocytes % (Manual) Seg Neutrophils # Seg Neutrophils # Man Lymphocytes # (Manual) APTT POC ABG pH ABG pH POC ABG pCO2 POC ABG pO2 ABG pO2 ABG HCO3 ABG Base Excess ABG Hemoglobin VBG pH Oxyhemoglobin Sodium Potassium Chloride Carbon Dioxide BUN Creatinine Glucose POC Glucose 211 H 117 H 133 H Lactic Acid Calcium AST Alkaline Phosphatase CK-MB (CK-2) CK-MB (CK-2) Rel Index Albumin TSH Urine WBC (Auto) Salicylates 03/03/17 03/03/17 03/04/17 17:43 23:17 05:30 WBC RBC Hgb Hct MCV MCH RDW Plt Count Lymph % (Auto) [place] % (Auto) Eos % (Auto) Seg Neutrophils % Seg Neuts % (Manual) Lymphocytes % (Manual) Seg Neutrophils # Seg Neutrophils # Man Lymphocytes # (Manual) APTT POC ABG pH ABG pH POC ABG pCO2 POC ABG pO2 ABG pO2 ABG HCO3 ABG Base Excess ABG Hemoglobin VBG pH Oxyhemoglobin Sodium Potassium Chloride Carbon Dioxide BUN Creatinine Glucose POC Glucose 206 H 170 H 126 H Lactic Acid Calcium AST Alkaline Phosphatase CK-MB (CK-2) CK-MB (CK-2) Rel Index Albumin TSH Urine WBC (Auto) Salicylates 03/04/17 03/04/17 03/05/17 12:17 17:27 05:20 WBC RBC Hgb Hct MCV MCH RDW Plt Count Lymph % (Auto) [place] % (Auto) Eos % (Auto) Seg Neutrophils % Seg Neuts % (Manual) Lymphocytes % (Manual) Seg Neutrophils # Seg Neutrophils # Man Lymphocytes # (Manual) APTT POC ABG pH ABG pH POC ABG pCO2 POC ABG pO2 ABG pO2 ABG HCO3 ABG Base Excess ABG Hemoglobin VBG pH Oxyhemoglobin Sodium Potassium Chloride Carbon Dioxide BUN Creatinine Glucose POC Glucose 135 H 121 H 185 H Lactic Acid Calcium AST Alkaline Phosphatase CK-MB (CK-2) CK-MB (CK-2) Rel Index Albumin TSH Urine WBC (Auto) Salicylates 03/05/17 03/06/17 03/06/17 11:50 11:52 17:34 WBC RBC Hgb Hct MCV MCH RDW Plt Count Lymph % (Auto) [place] % (Auto) Eos % (Auto) Seg Neutrophils % Seg Neuts % (Manual) Lymphocytes % (Manual) Seg Neutrophils # Seg Neutrophils # Man Lymphocytes # (Manual) APTT POC ABG pH ABG pH POC ABG pCO2 POC ABG pO2 ABG pO2 ABG HCO3 ABG Base Excess ABG Hemoglobin VBG pH Oxyhemoglobin Sodium Potassium Chloride Carbon Dioxide BUN Creatinine Glucose POC Glucose 116 H 133 H 181 H Lactic Acid Calcium AST Alkaline Phosphatase CK-MB (CK-2) CK-MB (CK-2) Rel Index Albumin TSH Urine WBC (Auto) Salicylates 03/07/17 03/07/17 03/07/17 05:21 11:36 17:49 WBC RBC Hgb Hct MCV MCH RDW Plt Count Lymph % (Auto) [place] % (Auto) Eos % (Auto) Seg Neutrophils % Seg Neuts % (Manual) Lymphocytes % (Manual) Seg Neutrophils # Seg Neutrophils # Man Lymphocytes # (Manual) APTT POC ABG pH ABG pH POC ABG pCO2 POC ABG pO2 ABG pO2 ABG HCO3 ABG Base Excess ABG Hemoglobin VBG pH Oxyhemoglobin Sodium Potassium Chloride Carbon Dioxide BUN Creatinine Glucose POC Glucose 159 H 137 H 158 H Lactic Acid Calcium AST Alkaline Phosphatase CK-MB (CK-2) CK-MB (CK-2) Rel Index Albumin TSH Urine WBC (Auto) Salicylates 03/08/17 03/08/17 03/08/17 05:51 13:58 23:50 WBC RBC Hgb Hct MCV MCH RDW Plt Count Lymph % (Auto) [place] % (Auto) Eos % (Auto) Seg Neutrophils % Seg Neuts % (Manual) Lymphocytes % (Manual) Seg Neutrophils # Seg Neutrophils # Man Lymphocytes # (Manual) APTT POC ABG pH ABG pH POC ABG pCO2 POC ABG pO2 ABG pO2 ABG HCO3 ABG Base Excess ABG Hemoglobin VBG pH Oxyhemoglobin Sodium Potassium Chloride Carbon Dioxide BUN Creatinine Glucose POC Glucose 122 H 182 H 114 H Lactic Acid Calcium AST Alkaline Phosphatase CK-MB (CK-2) CK-MB (CK-2) Rel Index Albumin TSH Urine WBC (Auto) Salicylates 03/09/17 03/09/17 03/09/17 05:21 05:51 05:51 WBC RBC 3.61 L Hgb 9.5 L Hct 28.3 L MCV 79 L MCH 26 L RDW 17.8 H Plt Count Lymph % (Auto) [place] % (Auto) Eos % (Auto) Seg Neutrophils % Seg Neuts % (Manual) Lymphocytes % (Manual) Seg Neutrophils # Seg Neutrophils # Man Lymphocytes # (Manual) APTT POC ABG pH ABG pH POC ABG pCO2 POC ABG pO2 ABG pO2 ABG HCO3 ABG Base Excess ABG Hemoglobin VBG pH Oxyhemoglobin Sodium 134 L Potassium Chloride 95.5 L Carbon Dioxide BUN 33 H Creatinine 0.5 L Glucose 143 H POC Glucose 153 H Lactic Acid Calcium AST Alkaline Phosphatase CK-MB (CK-2) CK-MB (CK-2) Rel Index Albumin TSH Urine WBC (Auto) Salicylates 03/09/17 03/09/17 03/09/17 12:10 18:13 21:00 WBC RBC Hgb Hct MCV MCH RDW Plt Count Lymph % (Auto) [place] % (Auto) Eos % (Auto) Seg Neutrophils % Seg Neuts % (Manual) Lymphocytes % (Manual) Seg Neutrophils # Seg Neutrophils # Man Lymphocytes # (Manual) APTT POC ABG pH ABG pH POC ABG pCO2 POC ABG pO2 ABG pO2 ABG HCO3 ABG Base Excess ABG Hemoglobin VBG pH Oxyhemoglobin Sodium Potassium Chloride Carbon Dioxide BUN Creatinine Glucose POC Glucose 203 H 221 H 198 H Lactic Acid Calcium AST Alkaline Phosphatase CK-MB (CK-2) CK-MB (CK-2) Rel Index Albumin TSH Urine WBC (Auto) Salicylates 03/09/17 03/10/17 03/10/17 23:58 05:09 05:09 WBC RBC Hgb 10.3 L Hct 30.5 L MCV 78 L MCH 26 L RDW 17.9 H Plt Count Lymph % (Auto) [place] % (Auto) 10.0 H Eos % (Auto) 6.0 H Seg Neutrophils % Seg Neuts % (Manual) Lymphocytes % (Manual) Seg Neutrophils # Seg Neutrophils # Man Lymphocytes # (Manual) APTT POC ABG pH ABG pH POC ABG pCO2 POC ABG pO2 ABG pO2 ABG HCO3 ABG Base Excess ABG Hemoglobin VBG pH Oxyhemoglobin Sodium 132 L Potassium Chloride 92.2 L Carbon Dioxide BUN 33 H Creatinine 0.5 L Glucose 50 L POC Glucose 167 H Lactic Acid Calcium AST Alkaline Phosphatase CK-MB (CK-2) CK-MB (CK-2) Rel Index Albumin TSH Urine WBC (Auto) Salicylates 03/10/17 03/10/17 03/10/17 05:33 05:34 11:48 WBC RBC Hgb Hct MCV MCH RDW Plt Count Lymph % (Auto) [place] % (Auto) Eos % (Auto) Seg Neutrophils % Seg Neuts % (Manual) Lymphocytes % (Manual) Seg Neutrophils # Seg Neutrophils # Man Lymphocytes # (Manual) APTT POC ABG pH ABG pH POC ABG pCO2 POC ABG pO2 ABG pO2 ABG HCO3 ABG Base Excess ABG Hemoglobin VBG pH Oxyhemoglobin Sodium Potassium Chloride Carbon Dioxide BUN Creatinine Glucose POC Glucose 52 L 53 L 148 H Lactic Acid Calcium AST Alkaline Phosphatase CK-MB (CK-2) CK-MB (CK-2) Rel Index Albumin TSH Urine WBC (Auto) Salicylates 03/10/17 03/10/17 03/11/17 17:53 23:47 05:18 WBC RBC Hgb Hct MCV MCH RDW Plt Count Lymph % (Auto) [place] % (Auto) Eos % (Auto) Seg Neutrophils % Seg Neuts % (Manual) Lymphocytes % (Manual) Seg Neutrophils # Seg Neutrophils # Man Lymphocytes # (Manual) APTT POC ABG pH ABG pH POC ABG pCO2 POC ABG pO2 ABG pO2 ABG HCO3 ABG Base Excess ABG Hemoglobin VBG pH Oxyhemoglobin Sodium Potassium Chloride Carbon Dioxide BUN Creatinine Glucose POC Glucose 189 H 398 H 126 H Lactic Acid Calcium AST Alkaline Phosphatase CK-MB (CK-2) CK-MB (CK-2) Rel Index Albumin TSH Urine WBC (Auto) Salicylates 03/11/17 03/11/17 03/11/17 11:53 17:30 23:10 WBC RBC Hgb Hct MCV MCH RDW Plt Count Lymph % (Auto) [place] % (Auto) Eos % (Auto) Seg Neutrophils % Seg Neuts % (Manual) Lymphocytes % (Manual) Seg Neutrophils # Seg Neutrophils # Man Lymphocytes # (Manual) APTT POC ABG pH ABG pH POC ABG pCO2 POC ABG pO2 ABG pO2 ABG HCO3 ABG Base Excess ABG Hemoglobin VBG pH Oxyhemoglobin Sodium Potassium Chloride Carbon Dioxide BUN Creatinine Glucose POC Glucose 198 H 142 H 244 H Lactic Acid Calcium AST Alkaline Phosphatase CK-MB (CK-2) CK-MB (CK-2) Rel Index Albumin TSH Urine WBC (Auto) Salicylates 03/12/17 03/12/17 03/12/17 04:36 11:49 17:23 WBC RBC Hgb Hct MCV MCH RDW Plt Count Lymph % (Auto) [place] % (Auto) Eos % (Auto) Seg Neutrophils % Seg Neuts % (Manual) Lymphocytes % (Manual) Seg Neutrophils # Seg Neutrophils # Man Lymphocytes # (Manual) APTT POC ABG pH ABG pH POC ABG pCO2 POC ABG pO2 ABG pO2 ABG HCO3 ABG Base Excess ABG Hemoglobin VBG pH Oxyhemoglobin Sodium Potassium Chloride Carbon Dioxide BUN Creatinine Glucose POC Glucose 205 H 197 H 209 H Lactic Acid Calcium AST Alkaline Phosphatase CK-MB (CK-2) CK-MB (CK-2) Rel Index Albumin TSH Urine WBC (Auto) Salicylates 03/12/17 03/13/17 03/13/17 23:51 05:32 11:43 WBC RBC Hgb Hct MCV MCH RDW Plt Count Lymph % (Auto) [place] % (Auto) Eos % (Auto) Seg Neutrophils % Seg Neuts % (Manual) Lymphocytes % (Manual) Seg Neutrophils # Seg Neutrophils # Man Lymphocytes # (Manual) APTT POC ABG pH ABG pH POC ABG pCO2 POC ABG pO2 ABG pO2 ABG HCO3 ABG Base Excess ABG Hemoglobin VBG pH Oxyhemoglobin Sodium Potassium Chloride Carbon Dioxide BUN Creatinine Glucose POC Glucose 210 H 154 H 164 H Lactic Acid Calcium AST Alkaline Phosphatase CK-MB (CK-2) CK-MB (CK-2) Rel Index Albumin TSH Urine WBC (Auto) Salicylates 03/13/17 03/13/17 03/14/17 17:11 23:26 05:42 WBC RBC Hgb Hct MCV MCH RDW Plt Count Lymph % (Auto) [place] % (Auto) Eos % (Auto) Seg Neutrophils % Seg Neuts % (Manual) Lymphocytes % (Manual) Seg Neutrophils # Seg Neutrophils # Man Lymphocytes # (Manual) APTT POC ABG pH ABG pH POC ABG pCO2 POC ABG pO2 ABG pO2 ABG HCO3 ABG Base Excess ABG Hemoglobin VBG pH Oxyhemoglobin Sodium Potassium Chloride Carbon Dioxide BUN Creatinine Glucose POC Glucose 195 H 240 H 230 H Lactic Acid Calcium AST Alkaline Phosphatase CK-MB (CK-2) CK-MB (CK-2) Rel Index Albumin TSH Urine WBC (Auto) Salicylates 03/14/17 03/14/17 03/14/17 14:04 17:34 23:42 WBC RBC Hgb Hct MCV MCH RDW Plt Count Lymph % (Auto) [place] % (Auto) Eos % (Auto) Seg Neutrophils % Seg Neuts % (Manual) Lymphocytes % (Manual) Seg Neutrophils # Seg Neutrophils # Man Lymphocytes # (Manual) APTT POC ABG pH ABG pH POC ABG pCO2 POC ABG pO2 ABG pO2 ABG HCO3 ABG Base Excess ABG Hemoglobin VBG pH Oxyhemoglobin Sodium Potassium Chloride Carbon Dioxide BUN Creatinine Glucose POC Glucose 227 H 186 H 225 H Lactic Acid Calcium AST Alkaline Phosphatase CK-MB (CK-2) CK-MB (CK-2) Rel Index Albumin TSH Urine WBC (Auto) Salicylates 03/15/17 03/15/17 03/15/17 05:21 17:13 21:37 WBC RBC Hgb Hct MCV MCH RDW Plt Count Lymph % (Auto) [place] % (Auto) Eos % (Auto) Seg Neutrophils % Seg Neuts % (Manual) Lymphocytes % (Manual) Seg Neutrophils # Seg Neutrophils # Man Lymphocytes # (Manual) APTT POC ABG pH ABG pH POC ABG pCO2 POC ABG pO2 ABG pO2 ABG HCO3 ABG Base Excess ABG Hemoglobin VBG pH Oxyhemoglobin Sodium Potassium Chloride Carbon Dioxide BUN Creatinine Glucose POC Glucose 244 H 203 H 216 H Lactic Acid Calcium AST Alkaline Phosphatase CK-MB (CK-2) CK-MB (CK-2) Rel Index Albumin TSH Urine WBC (Auto) Salicylates 03/16/17 03/16/17 03/16/17 05:52 18:07 21:54 WBC RBC Hgb Hct MCV MCH RDW Plt Count Lymph % (Auto) [place] % (Auto) Eos % (Auto) Seg Neutrophils % Seg Neuts % (Manual) Lymphocytes % (Manual) Seg Neutrophils # Seg Neutrophils # Man Lymphocytes # (Manual) APTT POC ABG pH ABG pH POC ABG pCO2 POC ABG pO2 ABG pO2 ABG HCO3 ABG Base Excess ABG Hemoglobin VBG pH Oxyhemoglobin Sodium Potassium Chloride Carbon Dioxide BUN Creatinine Glucose POC Glucose 248 H 254 H 244 H Lactic Acid Calcium AST Alkaline Phosphatase CK-MB (CK-2) CK-MB (CK-2) Rel Index Albumin TSH Urine WBC (Auto) Salicylates 03/17/17 03/17/17 03/17/17 07:07 07:42 07:43 WBC RBC Hgb 9.7 L Hct 29.1 L MCV 78 L MCH 26 L RDW 17.4 H Plt Count Lymph % (Auto) [place] % (Auto) Eos % (Auto) Seg Neutrophils % Seg Neuts % (Manual) Lymphocytes % (Manual) Seg Neutrophils # Seg Neutrophils # Man Lymphocytes # (Manual) APTT POC ABG pH ABG pH POC ABG pCO2 POC ABG pO2 ABG pO2 ABG HCO3 ABG Base Excess ABG Hemoglobin VBG pH Oxyhemoglobin Sodium Potassium Chloride 96.6 L Carbon Dioxide BUN 30 H Creatinine 0.5 L Glucose 251 H POC Glucose 222 H Lactic Acid Calcium AST Alkaline Phosphatase CK-MB (CK-2) CK-MB (CK-2) Rel Index Albumin TSH Urine WBC (Auto) Salicylates 03/17/17 03/17/17 03/18/17 14:08 21:20 14:24 WBC RBC Hgb Hct MCV MCH RDW Plt Count Lymph % (Auto) [place] % (Auto) Eos % (Auto) Seg Neutrophils % Seg Neuts % (Manual) Lymphocytes % (Manual) Seg Neutrophils # Seg Neutrophils # Man Lymphocytes # (Manual) APTT POC ABG pH ABG pH POC ABG pCO2 POC ABG pO2 ABG pO2 ABG HCO3 ABG Base Excess ABG Hemoglobin VBG pH Oxyhemoglobin Sodium Potassium Chloride Carbon Dioxide BUN Creatinine Glucose POC Glucose 281 H 239 H 195 H Lactic Acid Calcium AST Alkaline Phosphatase CK-MB (CK-2) CK-MB (CK-2) Rel Index Albumin TSH Urine WBC (Auto) Salicylates 03/18/17 03/19/17 03/19/17 21:37 04:57 14:23 WBC RBC Hgb Hct MCV MCH RDW Plt Count Lymph % (Auto) [place] % (Auto) Eos % (Auto) Seg Neutrophils % Seg Neuts % (Manual) Lymphocytes % (Manual) Seg Neutrophils # Seg Neutrophils # Man Lymphocytes # (Manual) APTT POC ABG pH ABG pH POC ABG pCO2 POC ABG pO2 ABG pO2 ABG HCO3 ABG Base Excess ABG Hemoglobin VBG pH Oxyhemoglobin Sodium Potassium Chloride Carbon Dioxide BUN Creatinine Glucose POC Glucose 227 H 205 H 277 H Lactic Acid Calcium AST Alkaline Phosphatase CK-MB (CK-2) CK-MB (CK-2) Rel Index Albumin TSH Urine WBC (Auto) Salicylates 03/19/17 03/19/17 03/20/17 20:31 21:47 04:55 WBC RBC Hgb Hct MCV MCH RDW Plt Count Lymph % (Auto) [place] % (Auto) Eos % (Auto) Seg Neutrophils % Seg Neuts % (Manual) Lymphocytes % (Manual) Seg Neutrophils # Seg Neutrophils # Man Lymphocytes # (Manual) APTT POC ABG pH ABG pH POC ABG pCO2 POC ABG pO2 ABG pO2 ABG HCO3 ABG Base Excess ABG Hemoglobin VBG pH Oxyhemoglobin Sodium Potassium Chloride Carbon Dioxide BUN Creatinine Glucose POC Glucose 256 H 270 H 202 H Lactic Acid Calcium AST Alkaline Phosphatase CK-MB (CK-2) CK-MB (CK-2) Rel Index Albumin TSH Urine WBC (Auto) Salicylates
--- NOTE | 2017-03-20 12:10 | Progress Note ---
Assessment and Plan Hypoglycemic brain injury Persistent vegetative state Metabolic encephalopathy Hypoglycemia/hypothermia, resolved Acute respiratory failure mechanical ventilator greater than 96 hours UTI with klebsiella, treated ( Cx + on 01/28), then with ESBL likely colonization hyponatremia, Hypothyroidism IDDM Hypertension low grade Fever, resolved - Cont supportive care and current medication. Monitor vitals, repeat cx on - no growth - increased dose of long acting insulin to 15 unit - Patient is DNR- needs guardianship from the state to give consent for further management, as has no family to give consent. Brief History: 51 YO Male with CKD,HTN, DM presents to ED after found down and unresponsive by his neighbor, who subsequently called EMS. Upon arrival, patient found unresponsive on the floor with a serum glucose of 21, patient has a known history of alcohol abuse and delirium tremens. The patient was administered D5 approximate 500 mls during transport without change in mental status/level of consciousness. Pt seen and evaluated in ED was was found to be unable to protect his airway. Pt intubated and placed on vent support. Pt found to have evidence of hypothyroidism. He was started on Synthroid. He has since been in the ICU. director of clinical services try to locate family, even spoke to the family who he lives with. They themselves were unaware of any family members. After ethics committee meeting on the patient. The decision was made to make him DO NOT RESUSCITATE and to transfer him to hospice. Given his very poor prognosis and poor likelihood of recovery. It was decided that was not his best interest to get trach and PEG. Therefore he'll be transferred to the hospice intubated. Now Awaiting on court ordered /state guardianship. Hospitalist Physical - Physical exam Narrative exam: General: comatose HEENT: Moist mucous membranes, , no lymphadenopathy Neck: supple Cardiac: S1-S2 heard Lungs: mechnical ventilated breath sounds Abdomen: soft , nontender, nondistended, bowel sounds positive Extremities: no edema clubbing or cyanosis Skin: no rash or lesions Neurologic: opens eyes, no response to deep painful stimuli, does not follow commend Subjective Date of service: 03/20/17 Principal diagnosis: Acute respiratory failure,encephalopathy Interval history: patient remains comatose, no movement of extremities afebrile o/n, no clinical change Objective - Constitutional Vitals: Vital Signs - 12hr 03/20/17 03/20/17 03/20/17 01:00 02:00 03:00 Temperature Pulse Rate 73 75 80 Pulse Rate [ From Monitor] Respiratory 15 15 21 Rate Blood Pressure 120/77 120/77 120/77 O2 Sat by Pulse 100 100 100 Oximetry 03/20/17 03/20/17 03/20/17 03:44 04:00 04:59 Temperature 99.7 F H Pulse Rate 69 67 Pulse Rate [ From Monitor] Respiratory 14 Rate Blood Pressure 120/77 120/77 O2 Sat by Pulse 100 Oximetry 03/20/17 03/20/17 03/20/17 05:00 06:00 07:00 Temperature Pulse Rate 68 68 64 Pulse Rate [ From Monitor] Respiratory 17 14 13 Rate Blood Pressure 120/77 120/77 120/77 O2 Sat by Pulse 100 100 100 Oximetry 03/20/17 03/20/17 03/20/17 07:57 08:00 09:00 Temperature Pulse Rate 69 66 72 Pulse Rate [ 66 From Monitor] Respiratory 14 18 Rate Blood Pressure 138/86 138/86 O2 Sat by Pulse 100 100 100 Oximetry 03/20/17 11:34 Temperature Pulse Rate 65 Pulse Rate [ From Monitor] Respiratory Rate Blood Pressure O2 Sat by Pulse 100 Oximetry - Labs CBC & Chem 7: 03/17/17 07:43 03/17/17 07:42 Labs: Abnormal lab results 03/19/17 03/19/17 03/19/17 Range/Units 14:23 20:31 21:47 POC Glucose 277 H 256 H 270 H (70-105) 03/20/17 Range/Units 04:55 POC Glucose 202 H (70-105)
[2017-03-21] MEDS: HumuLIN R SUB-Q SCH ×3 (05:54→22:50)
[2017-03-21] MEDS: SYNTHROID PO SCH (05:55)
--- NOTE | 2017-03-21 09:51 | Progress Note ---
Assessment and Plan Acute respiratory failure,prolonged vent/ETT support Fever. None today Hypoglycemia episode-mild hyperglicemic,improving Metabolic encephalopathy. Prolonged vegetative state ,status unchanged Hypothyroidism; doubt myxedema coma UTI/SIRS. Resolved Recommendations Currently the patient is DO NOT RESUSCITATE. 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 complex patient. Critical care time with a 31 minutes of [id number] evaluation and coordination of care Subjective Date of service: 03/21/17 Principal diagnosis: Acute respiratory failure,encephalopathy Interval history: Intubated. opens eyes sporadically, not following commands. On vent on PSV/CPAP mode Objective Vital Signs - 12hr 03/20/17 03/20/17 03/20/17 22:00 23:00 23:13 Temperature 98.9 F Pulse Rate 68 68 Respiratory 16 16 Rate Blood Pressure 142/85 142/85 O2 Sat by Pulse 98 100 Oximetry 03/20/17 03/21/17 03/21/17 23:27 00:00 01:00 Temperature Pulse Rate 64 65 69 Respiratory 14 16 Rate Blood Pressure 142/85 112/66 112/66 O2 Sat by Pulse 100 100 100 Oximetry 03/21/17 03/21/17 03/21/17 02:00 03:00 03:44 Temperature 99.1 F Pulse Rate 71 70 Respiratory 15 12 Rate Blood Pressure 112/66 112/66 O2 Sat by Pulse 100 99 Oximetry 03/21/17 03/21/17 03/21/17 04:00 04:23 05:00 Temperature Pulse Rate 68 67 63 Respiratory 12 12 Rate Blood Pressure 112/66 112/66 112/66 O2 Sat by Pulse 100 100 100 Oximetry 03/21/17 03/21/17 03/21/17 06:00 07:00 08:00 Temperature 99.2 F Pulse Rate 65 66 66 Respiratory 12 16 15 Rate Blood Pressure 112/66 112/66 146/86 O2 Sat by Pulse 100 100 100 Oximetry 03/21/17 08:44 Temperature Pulse Rate 70 Respiratory Rate Blood Pressure 146/86 O2 Sat by Pulse 100 Oximetry Constitutional: no acute distress, other (intubated, on vent support) Eyes: non-icteric ENT: oropharynx moist Neck: supple Effort: normal Ascultation: Bilateral: clear, diminished breath sounds Cardiovascular: regular rate and rhythm Gastrointestinal: normoactive bowel sounds, soft, non-tender, non-distended Integumentary: normal Extremities: no cyanosis, no edema, pink and warm Neurologic: other (awake spontaneously, not not following any commands. Fixed stare.) Psychiatric: other (unable to obtain) CBC and BMP: 03/17/17 07:43 03/17/17 07:42 ABG, PT/INR, D-dimer: ABG POC ABG pH 7.442 (7.35-7.45) 01/31/17 18:55 ABG pH 7.420 pH Units (7.350-7.450) 01/17/17 04:35 POC ABG pCO2 32.8 (35-45) L 01/31/17 18:55 ABG pCO2 34.5 mm Hg 01/17/17 04:35 POC ABG pO2 82 (80-105) 01/31/17 18:55 ABG pO2 160.3 mm Hg (80.0-90.0) H 01/17/17 04:35 POC ABG HCO3 22.4 01/31/17 18:55 POC ABG Total CO2 23 01/31/17 18:55 POC ABG O2 Sat 97 01/31/17 18:55 ABG O2 Saturation 99.0 % (95.0-99.0) 01/17/17 04:35 PT/INR, D-dimer PT 14.1 Sec. (12.2-14.9) 01/17/17 04:10 INR 1.04 (0.87-1.13) 01/17/17 04:10 Abnormal lab findings: Abnormal Labs 01/09/17 01/09/17 01/09/17 10:16 10:16 10:16 WBC RBC Hgb 9.7 L Hct 28.4 L MCV 76 L MCH 26 L RDW 17.2 H Plt Count 448 H Lymph % (Auto) Ocean % (Auto) Eos % (Auto) Seg Neutrophils % 79.5 H Seg Neuts % (Manual) Lymphocytes % (Manual) Seg Neutrophils # Seg Neutrophils # Man Lymphocytes # (Manual) APTT 39.6 H POC ABG pH ABG pH POC ABG pCO2 POC ABG pO2 ABG pO2 ABG HCO3 ABG Base Excess ABG Hemoglobin VBG pH Oxyhemoglobin Sodium 132 L Potassium Chloride 96.7 L Carbon Dioxide 21 L BUN 34 H Creatinine Glucose POC Glucose Lactic Acid Calcium 8.3 L AST Alkaline Phosphatase 151 H CK-MB (CK-2) 7.1 H CK-MB (CK-2) Rel Index 5.2 H Albumin 3.3 L TSH Urine WBC (Auto) Salicylates 01/09/17 01/09/17 01/09/17 10:16 10:16 10:16 WBC RBC Hgb Hct MCV MCH RDW Plt Count Lymph % (Auto) Ocean % (Auto) Eos % (Auto) Seg Neutrophils % Seg Neuts % (Manual) Lymphocytes % (Manual) Seg Neutrophils # Seg Neutrophils # Man Lymphocytes # (Manual) APTT POC ABG pH ABG pH POC ABG pCO2 POC ABG pO2 ABG pO2 ABG HCO3 ABG Base Excess ABG Hemoglobin VBG pH 7.284 L Oxyhemoglobin Sodium Potassium Chloride Carbon Dioxide BUN Creatinine Glucose POC Glucose Lactic Acid Calcium AST Alkaline Phosphatase CK-MB (CK-2) CK-MB (CK-2) Rel Index Albumin TSH 52.800 H Urine WBC (Auto) Salicylates < 0.3 L 01/09/17 01/09/17 01/09/17 10:23 11:14 12:49 WBC RBC Hgb Hct MCV MCH RDW Plt Count Lymph % (Auto) Ocean % (Auto) Eos % (Auto) Seg Neutrophils % Seg Neuts % (Manual) Lymphocytes % (Manual) Seg Neutrophils # Seg Neutrophils # Man Lymphocytes # (Manual) APTT POC ABG pH ABG pH POC ABG pCO2 POC ABG pO2 643 H ABG pO2 ABG HCO3 ABG Base Excess ABG Hemoglobin VBG pH Oxyhemoglobin Sodium Potassium Chloride Carbon Dioxide BUN Creatinine Glucose POC Glucose < 40 L Lactic Acid Calcium AST Alkaline Phosphatase CK-MB (CK-2) CK-MB (CK-2) Rel Index Albumin TSH Urine WBC (Auto) 61.0 H Salicylates 01/09/17 01/09/17 01/09/17 13:13 14:21 15:09 WBC RBC Hgb Hct MCV MCH RDW Plt Count Lymph % (Auto) Ocean % (Auto) Eos % (Auto) Seg Neutrophils % Seg Neuts % (Manual) Lymphocytes % (Manual) Seg Neutrophils # Seg Neutrophils # Man Lymphocytes # (Manual) APTT POC ABG pH ABG pH POC ABG pCO2 POC ABG pO2 ABG pO2 ABG HCO3 ABG Base Excess ABG Hemoglobin VBG pH Oxyhemoglobin Sodium Potassium Chloride Carbon Dioxide BUN Creatinine Glucose POC Glucose 128 H 65 L 120 H Lactic Acid Calcium AST Alkaline Phosphatase CK-MB (CK-2) CK-MB (CK-2) Rel Index Albumin TSH Urine WBC (Auto) Salicylates 01/09/17 01/09/17 01/10/17 16:28 17:14 04:30 WBC 24.1 H RBC 3.38 L Hgb 8.5 L Hct 26.0 L MCV 77 L MCH 25 L RDW 17.9 H Plt Count 474 H Lymph % (Auto) Ocean % (Auto) Eos % (Auto) Seg Neutrophils % Seg Neuts % (Manual) 88.0 H Lymphocytes % (Manual) 4.0 L Seg Neutrophils # Seg Neutrophils # Man 21.2 H Lymphocytes # (Manual) 1.0 L APTT POC ABG pH ABG pH POC ABG pCO2 POC ABG pO2 ABG pO2 ABG HCO3 ABG Base Excess ABG Hemoglobin VBG pH Oxyhemoglobin Sodium Potassium Chloride Carbon Dioxide BUN Creatinine Glucose POC Glucose 44 L 112 H Lactic Acid Calcium AST Alkaline Phosphatase CK-MB (CK-2) CK-MB (CK-2) Rel Index Albumin TSH Urine WBC (Auto) Salicylates 01/10/17 01/10/17 01/10/17 04:30 05:41 05:45 WBC RBC Hgb Hct MCV MCH RDW Plt Count Lymph % (Auto) Ocean % (Auto) Eos % (Auto) Seg Neutrophils % Seg Neuts % (Manual) Lymphocytes % (Manual) Seg Neutrophils # Seg Neutrophils # Man Lymphocytes # (Manual) APTT POC ABG pH ABG pH POC ABG pCO2 26.6 L POC ABG pO2 207 H ABG pO2 ABG HCO3 ABG Base Excess ABG Hemoglobin VBG pH Oxyhemoglobin Sodium Potassium Chloride Carbon Dioxide 17 L BUN 27 H Creatinine Glucose POC Glucose 68 L Lactic Acid Calcium 7.5 L AST Alkaline Phosphatase CK-MB (CK-2) CK-MB (CK-2) Rel Index Albumin TSH Urine WBC (Auto) Salicylates 01/10/17 01/10/17 01/10/17 07:47 10:50 13:41 WBC RBC Hgb Hct MCV MCH RDW Plt Count Lymph % (Auto) Ocean % (Auto) Eos % (Auto) Seg Neutrophils % Seg Neuts % (Manual) Lymphocytes % (Manual) Seg Neutrophils # Seg Neutrophils # Man Lymphocytes # (Manual) APTT POC ABG pH ABG pH POC ABG pCO2 POC ABG pO2 ABG pO2 ABG HCO3 ABG Base Excess ABG Hemoglobin VBG pH Oxyhemoglobin Sodium Potassium Chloride Carbon Dioxide BUN Creatinine Glucose POC Glucose 148 H 165 H 114 H Lactic Acid Calcium AST Alkaline Phosphatase CK-MB (CK-2) CK-MB (CK-2) Rel Index Albumin TSH Urine WBC (Auto) Salicylates 01/10/17 01/10/17 01/10/17 20:20 21:39 23:24 WBC RBC Hgb Hct MCV MCH RDW Plt Count Lymph % (Auto) Ocean % (Auto) Eos % (Auto) Seg Neutrophils % Seg Neuts % (Manual) Lymphocytes % (Manual) Seg Neutrophils # Seg Neutrophils # Man Lymphocytes # (Manual) APTT POC ABG pH ABG pH POC ABG pCO2 POC ABG pO2 ABG pO2 ABG HCO3 ABG Base Excess ABG Hemoglobin VBG pH Oxyhemoglobin Sodium Potassium Chloride Carbon Dioxide BUN Creatinine Glucose POC Glucose 150 H 175 H 155 H Lactic Acid Calcium AST Alkaline Phosphatase CK-MB (CK-2) CK-MB (CK-2) Rel Index Albumin TSH Urine WBC (Auto) Salicylates 01/11/17 01/11/17 01/11/17 00:19 04:06 05:20 WBC 15.2 H RBC 3.40 L Hgb 8.9 L Hct 26.3 L MCV 78 L MCH 26 L RDW 18.6 H Plt Count 462 H Lymph % (Auto) 13.2 L Ocean % (Auto) Eos % (Auto) Seg Neutrophils % 80.8 H Seg Neuts % (Manual) Lymphocytes % (Manual) Seg Neutrophils # 12.3 H Seg Neutrophils # Man Lymphocytes # (Manual) APTT POC ABG pH 7.463 H ABG pH POC ABG pCO2 26.2 L POC ABG pO2 185 H ABG pO2 ABG HCO3 ABG Base Excess ABG Hemoglobin VBG pH Oxyhemoglobin Sodium Potassium Chloride Carbon Dioxide BUN Creatinine Glucose POC Glucose 163 H Lactic Acid Calcium AST Alkaline Phosphatase CK-MB (CK-2) CK-MB (CK-2) Rel Index Albumin TSH Urine WBC (Auto) Salicylates 01/11/17 01/11/17 01/11/17 05:20 06:21 07:57 WBC RBC Hgb Hct MCV MCH RDW Plt Count Lymph % (Auto) Ocean % (Auto) Eos % (Auto) Seg Neutrophils % Seg Neuts % (Manual) Lymphocytes % (Manual) Seg Neutrophils # Seg Neutrophils # Man Lymphocytes # (Manual) APTT POC ABG pH ABG pH POC ABG pCO2 POC ABG pO2 ABG pO2 ABG HCO3 ABG Base Excess ABG Hemoglobin VBG pH Oxyhemoglobin Sodium Potassium 3.4 L Chloride 111.5 H Carbon Dioxide 17 L BUN Creatinine Glucose 147 H POC Glucose 139 H 188 H Lactic Acid Calcium 8.0 L AST Alkaline Phosphatase CK-MB (CK-2) CK-MB (CK-2) Rel Index Albumin TSH Urine WBC (Auto) Salicylates 01/11/17 01/11/17 01/11/17 11:46 16:50 23:15 WBC RBC Hgb Hct MCV MCH RDW Plt Count Lymph % (Auto) Ocean % (Auto) Eos % (Auto) Seg Neutrophils % Seg Neuts % (Manual) Lymphocytes % (Manual) Seg Neutrophils # Seg Neutrophils # Man Lymphocytes # (Manual) APTT POC ABG pH ABG pH POC ABG pCO2 POC ABG pO2 ABG pO2 ABG HCO3 ABG Base Excess ABG Hemoglobin VBG pH Oxyhemoglobin Sodium Potassium Chloride Carbon Dioxide BUN Creatinine Glucose POC Glucose 199 H 235 H 155 H Lactic Acid Calcium AST Alkaline Phosphatase CK-MB (CK-2) CK-MB (CK-2) Rel Index Albumin TSH Urine WBC (Auto) Salicylates 01/12/17 01/12/17 01/12/17 05:02 06:56 14:50 WBC RBC Hgb Hct MCV MCH RDW Plt Count Lymph % (Auto) Ocean % (Auto) Eos % (Auto) Seg Neutrophils % Seg Neuts % (Manual) Lymphocytes % (Manual) Seg Neutrophils # Seg Neutrophils # Man Lymphocytes # (Manual) APTT POC ABG pH ABG pH POC ABG pCO2 28.0 L POC ABG pO2 178 H ABG pO2 ABG HCO3 ABG Base Excess ABG Hemoglobin VBG pH Oxyhemoglobin Sodium Potassium Chloride Carbon Dioxide BUN Creatinine Glucose POC Glucose 119 H 164 H Lactic Acid Calcium AST Alkaline Phosphatase CK-MB (CK-2) CK-MB (CK-2) Rel Index Albumin TSH Urine WBC (Auto) Salicylates 01/13/17 01/13/17 01/13/17 03:37 03:37 04:26 WBC RBC 3.61 L Hgb 9.3 L Hct 28.0 L MCV 78 L MCH 26 L RDW 18.2 H Plt Count Lymph % (Auto) Ocean % (Auto) Eos % (Auto) Seg Neutrophils % Seg Neuts % (Manual) Lymphocytes % (Manual) Seg Neutrophils # Seg Neutrophils # Man Lymphocytes # (Manual) APTT POC ABG pH 7.485 H ABG pH POC ABG pCO2 25.4 L POC ABG pO2 73 L ABG pO2 ABG HCO3 ABG Base Excess ABG Hemoglobin VBG pH Oxyhemoglobin Sodium Potassium Chloride 112.4 H Carbon Dioxide 19 L BUN Creatinine Glucose 118 H POC Glucose Lactic Acid Calcium 8.0 L AST Alkaline Phosphatase CK-MB (CK-2) CK-MB (CK-2) Rel Index Albumin TSH Urine WBC (Auto) Salicylates 01/13/17 01/13/17 01/13/17 06:15 11:50 17:31 WBC RBC Hgb Hct MCV MCH RDW Plt Count Lymph % (Auto) Ocean % (Auto) Eos % (Auto) Seg Neutrophils % Seg Neuts % (Manual) Lymphocytes % (Manual) Seg Neutrophils # Seg Neutrophils # Man Lymphocytes # (Manual) APTT POC ABG pH ABG pH POC ABG pCO2 POC ABG pO2 ABG pO2 ABG HCO3 ABG Base Excess ABG Hemoglobin VBG pH Oxyhemoglobin Sodium Potassium Chloride Carbon Dioxide BUN Creatinine Glucose POC Glucose 116 H 171 H 203 H Lactic Acid Calcium AST Alkaline Phosphatase CK-MB (CK-2) CK-MB (CK-2) Rel Index Albumin TSH Urine WBC (Auto) Salicylates 01/14/17 01/14/17 01/14/17 00:02 04:50 04:50 WBC RBC 3.32 L Hgb 8.5 L Hct 26.1 L MCV 79 L MCH 26 L RDW 18.2 H Plt Count Lymph % (Auto) Ocean % (Auto) 9.0 H Eos % (Auto) Seg Neutrophils % Seg Neuts % (Manual) Lymphocytes % (Manual) Seg Neutrophils # Seg Neutrophils # Man Lymphocytes # (Manual) APTT POC ABG pH ABG pH POC ABG pCO2 POC ABG pO2 ABG pO2 ABG HCO3 ABG Base Excess ABG Hemoglobin VBG pH Oxyhemoglobin Sodium Potassium Chloride 112.5 H Carbon Dioxide BUN Creatinine Glucose 149 H POC Glucose 157 H Lactic Acid Calcium 8.1 L AST Alkaline Phosphatase CK-MB (CK-2) CK-MB (CK-2) Rel Index Albumin TSH Urine WBC (Auto) Salicylates 01/14/17 01/14/17 01/14/17 05:10 11:27 14:07 WBC RBC Hgb Hct MCV MCH RDW Plt Count Lymph % (Auto) Ocean % (Auto) Eos % (Auto) Seg Neutrophils % Seg Neuts % (Manual) Lymphocytes % (Manual) Seg Neutrophils # Seg Neutrophils # Man Lymphocytes # (Manual) APTT POC ABG pH ABG pH POC ABG pCO2 POC ABG pO2 ABG pO2 ABG HCO3 ABG Base Excess ABG Hemoglobin VBG pH Oxyhemoglobin Sodium Potassium Chloride Carbon Dioxide BUN Creatinine Glucose POC Glucose 176 H 147 H Lactic Acid Calcium AST Alkaline Phosphatase CK-MB (CK-2) CK-MB (CK-2) Rel Index Albumin TSH Urine WBC (Auto) 53.0 H Salicylates 01/14/17 01/15/17 01/15/17 16:52 00:04 05:26 WBC RBC Hgb Hct MCV MCH RDW Plt Count Lymph % (Auto) Ocean % (Auto) Eos % (Auto) Seg Neutrophils % Seg Neuts % (Manual) Lymphocytes % (Manual) Seg Neutrophils # Seg Neutrophils # Man Lymphocytes # (Manual) APTT POC ABG pH ABG pH POC ABG pCO2 POC ABG pO2 ABG pO2 ABG HCO3 ABG Base Excess ABG Hemoglobin VBG pH Oxyhemoglobin Sodium Potassium Chloride Carbon Dioxide BUN Creatinine Glucose POC Glucose 131 H 193 H 215 H Lactic Acid Calcium AST Alkaline Phosphatase CK-MB (CK-2) CK-MB (CK-2) Rel Index Albumin TSH Urine WBC (Auto) Salicylates 01/15/17 01/15/17 01/15/17 11:49 17:47 21:33 WBC RBC Hgb Hct MCV MCH RDW Plt Count Lymph % (Auto) Ocean % (Auto) Eos % (Auto) Seg Neutrophils % Seg Neuts % (Manual) Lymphocytes % (Manual) Seg Neutrophils # Seg Neutrophils # Man Lymphocytes # (Manual) APTT POC ABG pH ABG pH POC ABG pCO2 POC ABG pO2 ABG pO2 ABG HCO3 ABG Base Excess ABG Hemoglobin VBG pH Oxyhemoglobin Sodium Potassium Chloride Carbon Dioxide BUN Creatinine Glucose POC Glucose 121 H 211 H 275 H Lactic Acid Calcium AST Alkaline Phosphatase CK-MB (CK-2) CK-MB (CK-2) Rel Index Albumin TSH Urine WBC (Auto) Salicylates 01/16/17 01/16/17 01/16/17 04:30 05:28 13:45 WBC RBC Hgb Hct MCV MCH RDW Plt Count Lymph % (Auto) Ocean % (Auto) Eos % (Auto) Seg Neutrophils % Seg Neuts % (Manual) Lymphocytes % (Manual) Seg Neutrophils # Seg Neutrophils # Man Lymphocytes # (Manual) APTT POC ABG pH ABG pH 7.457 H POC ABG pCO2 POC ABG pO2 ABG pO2 55.1 L ABG HCO3 19.4 L ABG Base Excess -4.0 L ABG Hemoglobin 6.8 L VBG pH Oxyhemoglobin 94.9 L Sodium Potassium Chloride Carbon Dioxide BUN Creatinine Glucose POC Glucose 271 H 236 H Lactic Acid Calcium AST Alkaline Phosphatase CK-MB (CK-2) CK-MB (CK-2) Rel Index Albumin TSH Urine WBC (Auto) Salicylates 01/16/17 01/17/17 01/17/17 21:39 04:10 04:10 WBC 4.4 L RBC 2.98 L Hgb 7.7 L Hct 23.3 L MCV 78 L MCH 26 L RDW 18.1 H Plt Count Lymph % (Auto) Ocean % (Auto) Eos % (Auto) Seg Neutrophils % Seg Neuts % (Manual) Lymphocytes % (Manual) Seg Neutrophils # Seg Neutrophils # Man Lymphocytes # (Manual) APTT POC ABG pH ABG pH POC ABG pCO2 POC ABG pO2 ABG pO2 ABG HCO3 ABG Base Excess ABG Hemoglobin VBG pH Oxyhemoglobin Sodium Potassium 3.3 L Chloride 108.7 H Carbon Dioxide 20 L BUN 8 L Creatinine Glucose 202 H POC Glucose 258 H Lactic Acid Calcium 7.6 L AST Alkaline Phosphatase CK-MB (CK-2) CK-MB (CK-2) Rel Index Albumin TSH Urine WBC (Auto) Salicylates 01/17/17 01/17/17 01/17/17 04:35 12:23 16:01 WBC RBC Hgb Hct MCV MCH RDW Plt Count Lymph % (Auto) Ocean % (Auto) Eos % (Auto) Seg Neutrophils % Seg Neuts % (Manual) Lymphocytes % (Manual) Seg Neutrophils # Seg Neutrophils # Man Lymphocytes # (Manual) APTT POC ABG pH ABG pH POC ABG pCO2 POC ABG pO2 ABG pO2 160.3 H ABG HCO3 ABG Base Excess -2.3 L ABG Hemoglobin 7.9 L VBG pH Oxyhemoglobin Sodium Potassium Chloride Carbon Dioxide BUN Creatinine Glucose POC Glucose 321 H 239 H Lactic Acid Calcium AST Alkaline Phosphatase CK-MB (CK-2) CK-MB (CK-2) Rel Index Albumin TSH Urine WBC (Auto) Salicylates 01/18/17 01/18/17 01/18/17 05:07 12:09 17:54 WBC RBC Hgb Hct MCV MCH RDW Plt Count Lymph % (Auto) Ocean % (Auto) Eos % (Auto) Seg Neutrophils % Seg Neuts % (Manual) Lymphocytes % (Manual) Seg Neutrophils # Seg Neutrophils # Man Lymphocytes # (Manual) APTT POC ABG pH ABG pH POC ABG pCO2 POC ABG pO2 ABG pO2 ABG HCO3 ABG Base Excess ABG Hemoglobin VBG pH Oxyhemoglobin Sodium Potassium Chloride Carbon Dioxide BUN Creatinine Glucose POC Glucose 155 H 203 H 132 H Lactic Acid Calcium AST Alkaline Phosphatase CK-MB (CK-2) CK-MB (CK-2) Rel Index Albumin TSH Urine WBC (Auto) Salicylates 01/18/17 01/19/17 01/19/17 23:43 04:28 12:11 WBC RBC Hgb Hct MCV MCH RDW Plt Count Lymph % (Auto) Ocean % (Auto) Eos % (Auto) Seg Neutrophils % Seg Neuts % (Manual) Lymphocytes % (Manual) Seg Neutrophils # Seg Neutrophils # Man Lymphocytes # (Manual) APTT POC ABG pH ABG pH POC ABG pCO2 POC ABG pO2 ABG pO2 ABG HCO3 ABG Base Excess ABG Hemoglobin VBG pH Oxyhemoglobin Sodium Potassium Chloride Carbon Dioxide BUN Creatinine Glucose POC Glucose 125 H 182 H 153 H Lactic Acid Calcium AST Alkaline Phosphatase CK-MB (CK-2) CK-MB (CK-2) Rel Index Albumin TSH Urine WBC (Auto) Salicylates 01/19/17 01/20/17 01/20/17 17:23 00:12 05:44 WBC RBC Hgb Hct MCV MCH RDW Plt Count Lymph % (Auto) Ocean % (Auto) Eos % (Auto) Seg Neutrophils % Seg Neuts % (Manual) Lymphocytes % (Manual) Seg Neutrophils # Seg Neutrophils # Man Lymphocytes # (Manual) APTT POC ABG pH ABG pH POC ABG pCO2 POC ABG pO2 ABG pO2 ABG HCO3 ABG Base Excess ABG Hemoglobin VBG pH Oxyhemoglobin Sodium Potassium Chloride Carbon Dioxide BUN Creatinine Glucose POC Glucose 66 L 139 H 176 H Lactic Acid Calcium AST Alkaline Phosphatase CK-MB (CK-2) CK-MB (CK-2) Rel Index Albumin TSH Urine WBC (Auto) Salicylates 01/20/17 01/20/17 01/20/17 11:48 17:42 23:43 WBC RBC Hgb Hct MCV MCH RDW Plt Count Lymph % (Auto) Ocean % (Auto) Eos % (Auto) Seg Neutrophils % Seg Neuts % (Manual) Lymphocytes % (Manual) Seg Neutrophils # Seg Neutrophils # Man Lymphocytes # (Manual) APTT POC ABG pH ABG pH POC ABG pCO2 POC ABG pO2 ABG pO2 ABG HCO3 ABG Base Excess ABG Hemoglobin VBG pH Oxyhemoglobin Sodium Potassium Chloride Carbon Dioxide BUN Creatinine Glucose POC Glucose 218 H 132 H 178 H Lactic Acid Calcium AST Alkaline Phosphatase CK-MB (CK-2) CK-MB (CK-2) Rel Index Albumin TSH Urine WBC (Auto) Salicylates 01/21/17 01/21/17 01/21/17 05:34 11:17 23:37 WBC RBC Hgb Hct MCV MCH RDW Plt Count Lymph % (Auto) Ocean % (Auto) Eos % (Auto) Seg Neutrophils % Seg Neuts % (Manual) Lymphocytes % (Manual) Seg Neutrophils # Seg Neutrophils # Man Lymphocytes # (Manual) APTT POC ABG pH ABG pH POC ABG pCO2 POC ABG pO2 ABG pO2 ABG HCO3 ABG Base Excess ABG Hemoglobin VBG pH Oxyhemoglobin Sodium Potassium Chloride Carbon Dioxide BUN Creatinine Glucose POC Glucose 106 H 213 H 140 H Lactic Acid Calcium AST Alkaline Phosphatase CK-MB (CK-2) CK-MB (CK-2) Rel Index Albumin TSH Urine WBC (Auto) Salicylates 01/22/17 01/22/17 01/22/17 04:00 04:00 04:58 WBC RBC 3.26 L Hgb 8.3 L Hct 25.5 L MCV 78 L MCH 25 L RDW 17.9 H Plt Count Lymph % (Auto) Ocean % (Auto) 7.9 H Eos % (Auto) 6.2 H Seg Neutrophils % Seg Neuts % (Manual) Lymphocytes % (Manual) Seg Neutrophils # Seg Neutrophils # Man Lymphocytes # (Manual) APTT POC ABG pH ABG pH POC ABG pCO2 POC ABG pO2 ABG pO2 ABG HCO3 ABG Base Excess ABG Hemoglobin VBG pH Oxyhemoglobin Sodium Potassium Chloride 95.5 L Carbon Dioxide 31 H D BUN Creatinine Glucose 134 H POC Glucose 146 H Lactic Acid Calcium AST 44 H Alkaline Phosphatase 379 H CK-MB (CK-2) CK-MB (CK-2) Rel Index Albumin 2.7 L TSH Urine WBC (Auto) Salicylates 01/22/17 01/22/17 01/22/17 12:12 18:12 23:39 WBC RBC Hgb Hct MCV MCH RDW Plt Count Lymph % (Auto) Ocean % (Auto) Eos % (Auto) Seg Neutrophils % Seg Neuts % (Manual) Lymphocytes % (Manual) Seg Neutrophils # Seg Neutrophils # Man Lymphocytes # (Manual) APTT POC ABG pH ABG pH POC ABG pCO2 POC ABG pO2 ABG pO2 ABG HCO3 ABG Base Excess ABG Hemoglobin VBG pH Oxyhemoglobin Sodium Potassium Chloride Carbon Dioxide BUN Creatinine Glucose POC Glucose 255 H 182 H 134 H Lactic Acid Calcium AST Alkaline Phosphatase CK-MB (CK-2) CK-MB (CK-2) Rel Index Albumin TSH Urine WBC (Auto) Salicylates 01/23/17 01/23/17 01/23/17 04:43 12:12 17:36 WBC RBC Hgb Hct MCV MCH RDW Plt Count Lymph % (Auto) Ocean % (Auto) Eos % (Auto) Seg Neutrophils % Seg Neuts % (Manual) Lymphocytes % (Manual) Seg Neutrophils # Seg Neutrophils # Man Lymphocytes # (Manual) APTT POC ABG pH ABG pH POC ABG pCO2 POC ABG pO2 ABG pO2 ABG HCO3 ABG Base Excess ABG Hemoglobin VBG pH Oxyhemoglobin Sodium Potassium Chloride Carbon Dioxide BUN Creatinine Glucose POC Glucose 218 H 128 H 156 H Lactic Acid Calcium AST Alkaline Phosphatase CK-MB (CK-2) CK-MB (CK-2) Rel Index Albumin TSH Urine WBC (Auto) Salicylates 01/24/17 01/24/17 01/24/17 00:08 05:16 11:40 WBC RBC Hgb Hct MCV MCH RDW Plt Count Lymph % (Auto) Ocean % (Auto) Eos % (Auto) Seg Neutrophils % Seg Neuts % (Manual) Lymphocytes % (Manual) Seg Neutrophils # Seg Neutrophils # Man Lymphocytes # (Manual) APTT POC ABG pH ABG pH POC ABG pCO2 POC ABG pO2 ABG pO2 ABG HCO3 ABG Base Excess ABG Hemoglobin VBG pH Oxyhemoglobin Sodium Potassium Chloride Carbon Dioxide BUN Creatinine Glucose POC Glucose 129 H 169 H 187 H Lactic Acid Calcium AST Alkaline Phosphatase CK-MB (CK-2) CK-MB (CK-2) Rel Index Albumin TSH Urine WBC (Auto) Salicylates 01/24/17 01/24/17 01/25/17 17:43 23:23 04:56 WBC RBC Hgb Hct MCV MCH RDW Plt Count Lymph % (Auto) Ocean % (Auto) Eos % (Auto) Seg Neutrophils % Seg Neuts % (Manual) Lymphocytes % (Manual) Seg Neutrophils # Seg Neutrophils # Man Lymphocytes # (Manual) APTT POC ABG pH ABG pH POC ABG pCO2 POC ABG pO2 ABG pO2 ABG HCO3 ABG Base Excess ABG Hemoglobin VBG pH Oxyhemoglobin Sodium Potassium Chloride Carbon Dioxide BUN Creatinine Glucose POC Glucose 215 H 222 H 210 H Lactic Acid Calcium AST Alkaline Phosphatase CK-MB (CK-2) CK-MB (CK-2) Rel Index Albumin TSH Urine WBC (Auto) Salicylates 01/25/17 01/25/17 01/26/17 11:52 17:37 00:02 WBC RBC Hgb Hct MCV MCH RDW Plt Count Lymph % (Auto) Ocean % (Auto) Eos % (Auto) Seg Neutrophils % Seg Neuts % (Manual) Lymphocytes % (Manual) Seg Neutrophils # Seg Neutrophils # Man Lymphocytes # (Manual) APTT POC ABG pH ABG pH POC ABG pCO2 POC ABG pO2 ABG pO2 ABG HCO3 ABG Base Excess ABG Hemoglobin VBG pH Oxyhemoglobin Sodium Potassium Chloride Carbon Dioxide BUN Creatinine Glucose POC Glucose 284 H 218 H 192 H Lactic Acid Calcium AST Alkaline Phosphatase CK-MB (CK-2) CK-MB (CK-2) Rel Index Albumin TSH Urine WBC (Auto) Salicylates 01/26/17 01/26/17 01/26/17 05:33 12:17 17:50 WBC RBC Hgb Hct MCV MCH RDW Plt Count Lymph % (Auto) Ocean % (Auto) Eos % (Auto) Seg Neutrophils % Seg Neuts % (Manual) Lymphocytes % (Manual) Seg Neutrophils # Seg Neutrophils # Man Lymphocytes # (Manual) APTT POC ABG pH ABG pH POC ABG pCO2 POC ABG pO2 ABG pO2 ABG HCO3 ABG Base Excess ABG Hemoglobin VBG pH Oxyhemoglobin Sodium Potassium Chloride Carbon Dioxide BUN Creatinine Glucose POC Glucose 199 H 227 H 229 H Lactic Acid Calcium AST Alkaline Phosphatase CK-MB (CK-2) CK-MB (CK-2) Rel Index Albumin TSH Urine WBC (Auto) Salicylates 01/26/17 01/27/17 01/27/17 23:57 05:31 11:42 WBC RBC Hgb Hct MCV MCH RDW Plt Count Lymph % (Auto) Ocean % (Auto) Eos % (Auto) Seg Neutrophils % Seg Neuts % (Manual) Lymphocytes % (Manual) Seg Neutrophils # Seg Neutrophils # Man Lymphocytes # (Manual) APTT POC ABG pH ABG pH POC ABG pCO2 POC ABG pO2 ABG pO2 ABG HCO3 ABG Base Excess ABG Hemoglobin VBG pH Oxyhemoglobin Sodium Potassium Chloride Carbon Dioxide BUN Creatinine Glucose POC Glucose 186 H 285 H 260 H Lactic Acid Calcium AST Alkaline Phosphatase CK-MB (CK-2) CK-MB (CK-2) Rel Index Albumin TSH Urine WBC (Auto) Salicylates 01/27/17 01/27/17 01/27/17 17:47 23:58 Unknown WBC 12.1 H RBC 3.28 L Hgb 8.5 L Hct 25.5 L MCV 78 L MCH 26 L RDW 16.8 H Plt Count 601 H Lymph % (Auto) Ocean % (Auto) Eos % (Auto) Seg Neutrophils % Seg Neuts % (Manual) Lymphocytes % (Manual) Seg Neutrophils # Seg Neutrophils # Man Lymphocytes # (Manual) APTT POC ABG pH ABG pH POC ABG pCO2 POC ABG pO2 ABG pO2 ABG HCO3 ABG Base Excess ABG Hemoglobin VBG pH Oxyhemoglobin Sodium Potassium Chloride Carbon Dioxide BUN Creatinine Glucose POC Glucose 329 H 225 H Lactic Acid Calcium AST Alkaline Phosphatase CK-MB (CK-2) CK-MB (CK-2) Rel Index Albumin TSH Urine WBC (Auto) Salicylates 01/27/17 01/28/17 01/28/17 Unknown 03:44 03:44 WBC RBC 3.14 L Hgb 8.2 L Hct 24.1 L MCV 77 L MCH 26 L RDW 16.9 H Plt Count 567 H Lymph % (Auto) Ocean % (Auto) Eos % (Auto) Seg Neutrophils % Seg Neuts % (Manual) Lymphocytes % (Manual) Seg Neutrophils # Seg Neutrophils # Man Lymphocytes # (Manual) APTT POC ABG pH ABG pH POC ABG pCO2 POC ABG pO2 ABG pO2 ABG HCO3 ABG Base Excess ABG Hemoglobin VBG pH Oxyhemoglobin Sodium 128 L Potassium 5.4 H Chloride 87.5 L Carbon Dioxide BUN 44 H 42 H Creatinine Glucose 250 H 128 H POC Glucose Lactic Acid Calcium AST Alkaline Phosphatase CK-MB (CK-2) CK-MB (CK-2) Rel Index Albumin TSH Urine WBC (Auto) Salicylates 01/28/17 01/28/17 01/28/17 11:43 16:47 17:52 WBC RBC Hgb Hct MCV MCH RDW Plt Count Lymph % (Auto) Ocean % (Auto) Eos % (Auto) Seg Neutrophils % Seg Neuts % (Manual) Lymphocytes % (Manual) Seg Neutrophils # Seg Neutrophils # Man Lymphocytes # (Manual) APTT POC ABG pH ABG pH POC ABG pCO2 POC ABG pO2 ABG pO2 ABG HCO3 ABG Base Excess ABG Hemoglobin VBG pH Oxyhemoglobin Sodium Potassium Chloride Carbon Dioxide BUN Creatinine Glucose POC Glucose 351 H 249 H Lactic Acid Calcium AST Alkaline Phosphatase CK-MB (CK-2) CK-MB (CK-2) Rel Index Albumin TSH Urine WBC (Auto) > 182.0 H Salicylates 01/29/17 01/29/17 01/29/17 05:25 05:25 09:32 WBC 13.6 H RBC 3.25 L Hgb 8.3 L Hct 25.1 L MCV 77 L MCH 26 L RDW 16.8 H Plt Count 514 H Lymph % (Auto) Ocean % (Auto) Eos % (Auto) Seg Neutrophils % Seg Neuts % (Manual) Lymphocytes % (Manual) Seg Neutrophils # Seg Neutrophils # Man Lymphocytes # (Manual) APTT POC ABG pH ABG pH POC ABG pCO2 POC ABG pO2 ABG pO2 ABG HCO3 ABG Base Excess ABG Hemoglobin VBG pH Oxyhemoglobin Sodium Potassium Chloride 97.8 L Carbon Dioxide BUN 34 H Creatinine Glucose 222 H POC Glucose Lactic Acid 2.50 H* Calcium AST Alkaline Phosphatase CK-MB (CK-2) CK-MB (CK-2) Rel Index Albumin TSH Urine WBC (Auto) Salicylates 01/29/17 01/29/17 01/29/17 11:56 18:11 23:55 WBC RBC Hgb Hct MCV MCH RDW Plt Count Lymph % (Auto) Ocean % (Auto) Eos % (Auto) Seg Neutrophils % Seg Neuts % (Manual) Lymphocytes % (Manual) Seg Neutrophils # Seg Neutrophils # Man Lymphocytes # (Manual) APTT POC ABG pH ABG pH POC ABG pCO2 POC ABG pO2 ABG pO2 ABG HCO3 ABG Base Excess ABG Hemoglobin VBG pH Oxyhemoglobin Sodium Potassium Chloride Carbon Dioxide BUN Creatinine Glucose POC Glucose 261 H 215 H 176 H Lactic Acid Calcium AST Alkaline Phosphatase CK-MB (CK-2) CK-MB (CK-2) Rel Index Albumin TSH Urine WBC (Auto) Salicylates 01/30/17 01/30/17 01/30/17 05:31 05:31 05:34 WBC 15.2 H RBC 3.09 L Hgb 7.9 L Hct 23.9 L MCV 77 L MCH 26 L RDW 16.9 H Plt Count 569 H Lymph % (Auto) Ocean % (Auto) Eos % (Auto) Seg Neutrophils % Seg Neuts % (Manual) Lymphocytes % (Manual) Seg Neutrophils # Seg Neutrophils # Man Lymphocytes # (Manual) APTT POC ABG pH ABG pH POC ABG pCO2 POC ABG pO2 ABG pO2 ABG HCO3 ABG Base Excess ABG Hemoglobin VBG pH Oxyhemoglobin Sodium Potassium Chloride Carbon Dioxide BUN 24 H Creatinine Glucose 235 H POC Glucose 243 H Lactic Acid Calcium AST Alkaline Phosphatase CK-MB (CK-2) CK-MB (CK-2) Rel Index Albumin TSH Urine WBC (Auto) Salicylates 01/30/17 01/30/17 01/30/17 11:38 17:58 23:29 WBC RBC Hgb Hct MCV MCH RDW Plt Count Lymph % (Auto) Ocean % (Auto) Eos % (Auto) Seg Neutrophils % Seg Neuts % (Manual) Lymphocytes % (Manual) Seg Neutrophils # Seg Neutrophils # Man Lymphocytes # (Manual) APTT POC ABG pH ABG pH POC ABG pCO2 POC ABG pO2 ABG pO2 ABG HCO3 ABG Base Excess ABG Hemoglobin VBG pH Oxyhemoglobin Sodium Potassium Chloride Carbon Dioxide BUN Creatinine Glucose POC Glucose 298 H 208 H 245 H Lactic Acid Calcium AST Alkaline Phosphatase CK-MB (CK-2) CK-MB (CK-2) Rel Index Albumin TSH Urine WBC (Auto) Salicylates 01/31/17 01/31/17 01/31/17 04:39 04:39 05:57 WBC 11.4 H RBC 3.22 L Hgb 8.2 L Hct 24.9 L MCV 78 L MCH 25 L RDW 17.2 H Plt Count 576 H Lymph % (Auto) Ocean % (Auto) Eos % (Auto) Seg Neutrophils % Seg Neuts % (Manual) Lymphocytes % (Manual) Seg Neutrophils # Seg Neutrophils # Man Lymphocytes # (Manual) APTT POC ABG pH ABG pH POC ABG pCO2 POC ABG pO2 ABG pO2 ABG HCO3 ABG Base Excess ABG Hemoglobin VBG pH Oxyhemoglobin Sodium Potassium Chloride Carbon Dioxide BUN Creatinine 0.7 L Glucose 223 H POC Glucose 264 H Lactic Acid Calcium AST Alkaline Phosphatase CK-MB (CK-2) CK-MB (CK-2) Rel Index Albumin TSH Urine WBC (Auto) Salicylates 01/31/17 01/31/17 01/31/17 12:23 17:41 18:55 WBC RBC Hgb Hct MCV MCH RDW Plt Count Lymph % (Auto) Ocean % (Auto) Eos % (Auto) Seg Neutrophils % Seg Neuts % (Manual) Lymphocytes % (Manual) Seg Neutrophils # Seg Neutrophils # Man Lymphocytes # (Manual) APTT POC ABG pH ABG pH POC ABG pCO2 32.8 L POC ABG pO2 ABG pO2 ABG HCO3 ABG Base Excess ABG Hemoglobin VBG pH Oxyhemoglobin Sodium Potassium Chloride Carbon Dioxide BUN Creatinine Glucose POC Glucose 252 H 208 H Lactic Acid Calcium AST Alkaline Phosphatase CK-MB (CK-2) CK-MB (CK-2) Rel Index Albumin TSH Urine WBC (Auto) Salicylates 01/31/17 02/01/17 02/01/17 22:59 03:38 03:38 WBC RBC 2.81 L Hgb 7.4 L Hct 22.1 L MCV 79 L MCH 27 L RDW 17.0 H Plt Count 540 H Lymph % (Auto) Ocean % (Auto) Eos % (Auto) Seg Neutrophils % Seg Neuts % (Manual) Lymphocytes % (Manual) Seg Neutrophils # Seg Neutrophils # Man Lymphocytes # (Manual) APTT POC ABG pH ABG pH POC ABG pCO2 POC ABG pO2 ABG pO2 ABG HCO3 ABG Base Excess ABG Hemoglobin VBG pH Oxyhemoglobin Sodium Potassium Chloride Carbon Dioxide 21 L BUN Creatinine 0.7 L Glucose POC Glucose 40 L Lactic Acid Calcium AST Alkaline Phosphatase CK-MB (CK-2) CK-MB (CK-2) Rel Index Albumin TSH Urine WBC (Auto) Salicylates 02/01/17 02/01/17 02/01/17 05:17 12:19 16:44 WBC RBC Hgb Hct MCV MCH RDW Plt Count Lymph % (Auto) Ocean % (Auto) Eos % (Auto) Seg Neutrophils % Seg Neuts % (Manual) Lymphocytes % (Manual) Seg Neutrophils # Seg Neutrophils # Man Lymphocytes # (Manual) APTT POC ABG pH ABG pH POC ABG pCO2 POC ABG pO2 ABG pO2 ABG HCO3 ABG Base Excess ABG Hemoglobin VBG pH Oxyhemoglobin Sodium Potassium Chloride Carbon Dioxide BUN Creatinine Glucose POC Glucose 140 H 213 H 172 H Lactic Acid Calcium AST Alkaline Phosphatase CK-MB (CK-2) CK-MB (CK-2) Rel Index Albumin TSH Urine WBC (Auto) Salicylates 02/01/17 02/02/17 02/02/17 23:59 05:14 11:24 WBC RBC Hgb Hct MCV MCH RDW Plt Count Lymph % (Auto) Ocean % (Auto) Eos % (Auto) Seg Neutrophils % Seg Neuts % (Manual) Lymphocytes % (Manual) Seg Neutrophils # Seg Neutrophils # Man Lymphocytes # (Manual) APTT POC ABG pH ABG pH POC ABG pCO2 POC ABG pO2 ABG pO2 ABG HCO3 ABG Base Excess ABG Hemoglobin VBG pH Oxyhemoglobin Sodium Potassium Chloride Carbon Dioxide BUN Creatinine Glucose POC Glucose 181 H 194 H 209 H Lactic Acid Calcium AST Alkaline Phosphatase CK-MB (CK-2) CK-MB (CK-2) Rel Index Albumin TSH Urine WBC (Auto) Salicylates 02/02/17 02/02/17 02/02/17 11:46 11:46 17:47 WBC RBC 2.94 L Hgb 7.5 L Hct 23.0 L MCV 78 L MCH 25 L RDW 16.9 H Plt Count 520 H Lymph % (Auto) Ocean % (Auto) Eos % (Auto) Seg Neutrophils % Seg Neuts % (Manual) Lymphocytes % (Manual) Seg Neutrophils # Seg Neutrophils # Man Lymphocytes # (Manual) APTT POC ABG pH ABG pH POC ABG pCO2 POC ABG pO2 ABG pO2 ABG HCO3 ABG Base Excess ABG Hemoglobin VBG pH Oxyhemoglobin Sodium Potassium Chloride Carbon Dioxide BUN Creatinine 0.6 L Glucose 189 H POC Glucose 147 H Lactic Acid Calcium 8.1 L AST Alkaline Phosphatase CK-MB (CK-2) CK-MB (CK-2) Rel Index Albumin TSH Urine WBC (Auto) Salicylates 02/02/17 02/03/17 02/03/17 23:32 05:53 11:19 WBC RBC Hgb Hct MCV MCH RDW Plt Count Lymph % (Auto) Ocean % (Auto) Eos % (Auto) Seg Neutrophils % Seg Neuts % (Manual) Lymphocytes % (Manual) Seg Neutrophils # Seg Neutrophils # Man Lymphocytes # (Manual) APTT POC ABG pH ABG pH POC ABG pCO2 POC ABG pO2 ABG pO2 ABG HCO3 ABG Base Excess ABG Hemoglobin VBG pH Oxyhemoglobin Sodium Potassium Chloride Carbon Dioxide BUN Creatinine Glucose POC Glucose 176 H 224 H 228 H Lactic Acid Calcium AST Alkaline Phosphatase CK-MB (CK-2) CK-MB (CK-2) Rel Index Albumin TSH Urine WBC (Auto) Salicylates 02/03/17 02/03/17 02/04/17 16:59 23:38 05:45 WBC RBC Hgb Hct MCV MCH RDW Plt Count Lymph % (Auto) Ocean % (Auto) Eos % (Auto) Seg Neutrophils % Seg Neuts % (Manual) Lymphocytes % (Manual) Seg Neutrophils # Seg Neutrophils # Man Lymphocytes # (Manual) APTT POC ABG pH ABG pH POC ABG pCO2 POC ABG pO2 ABG pO2 ABG HCO3 ABG Base Excess ABG Hemoglobin VBG pH Oxyhemoglobin Sodium Potassium Chloride Carbon Dioxide BUN Creatinine Glucose POC Glucose 189 H 191 H 251 H Lactic Acid Calcium AST Alkaline Phosphatase CK-MB (CK-2) CK-MB (CK-2) Rel Index Albumin TSH Urine WBC (Auto) Salicylates 02/04/17 02/04/17 02/05/17 11:20 17:20 00:17 WBC RBC Hgb Hct MCV MCH RDW Plt Count Lymph % (Auto) Ocean % (Auto) Eos % (Auto) Seg Neutrophils % Seg Neuts % (Manual) Lymphocytes % (Manual) Seg Neutrophils # Seg Neutrophils # Man Lymphocytes # (Manual) APTT POC ABG pH ABG pH POC ABG pCO2 POC ABG pO2 ABG pO2 ABG HCO3 ABG Base Excess ABG Hemoglobin VBG pH Oxyhemoglobin Sodium Potassium Chloride Carbon Dioxide BUN Creatinine Glucose POC Glucose 243 H 163 H 200 H Lactic Acid Calcium AST Alkaline Phosphatase CK-MB (CK-2) CK-MB (CK-2) Rel Index Albumin TSH Urine WBC (Auto) Salicylates 02/05/17 02/05/17 02/05/17 05:38 12:38 16:29 WBC RBC Hgb Hct MCV MCH RDW Plt Count Lymph % (Auto) Ocean % (Auto) Eos % (Auto) Seg Neutrophils % Seg Neuts % (Manual) Lymphocytes % (Manual) Seg Neutrophils # Seg Neutrophils # Man Lymphocytes # (Manual) APTT POC ABG pH ABG pH POC ABG pCO2 POC ABG pO2 ABG pO2 ABG HCO3 ABG Base Excess ABG Hemoglobin VBG pH Oxyhemoglobin Sodium Potassium Chloride Carbon Dioxide BUN Creatinine Glucose POC Glucose 248 H 241 H 257 H Lactic Acid Calcium AST Alkaline Phosphatase CK-MB (CK-2) CK-MB (CK-2) Rel Index Albumin TSH Urine WBC (Auto) Salicylates 02/05/17 02/06/17 02/06/17 23:56 05:30 11:50 WBC RBC Hgb Hct MCV MCH RDW Plt Count Lymph % (Auto) Ocean % (Auto) Eos % (Auto) Seg Neutrophils % Seg Neuts % (Manual) Lymphocytes % (Manual) Seg Neutrophils # Seg Neutrophils # Man Lymphocytes # (Manual) APTT POC ABG pH ABG pH POC ABG pCO2 POC ABG pO2 ABG pO2 ABG HCO3 ABG Base Excess ABG Hemoglobin VBG pH Oxyhemoglobin Sodium Potassium Chloride Carbon Dioxide BUN Creatinine Glucose POC Glucose 258 H 120 H 254 H Lactic Acid Calcium AST Alkaline Phosphatase CK-MB (CK-2) CK-MB (CK-2) Rel Index Albumin TSH Urine WBC (Auto) Salicylates 02/06/17 02/06/17 02/07/17 17:11 23:50 05:22 WBC RBC Hgb Hct MCV MCH RDW Plt Count Lymph % (Auto) Ocean % (Auto) Eos % (Auto) Seg Neutrophils % Seg Neuts % (Manual) Lymphocytes % (Manual) Seg Neutrophils # Seg Neutrophils # Man Lymphocytes # (Manual) APTT POC ABG pH ABG pH POC ABG pCO2 POC ABG pO2 ABG pO2 ABG HCO3 ABG Base Excess ABG Hemoglobin VBG pH Oxyhemoglobin Sodium Potassium Chloride Carbon Dioxide BUN Creatinine Glucose POC Glucose 149 H 240 H 258 H Lactic Acid Calcium AST Alkaline Phosphatase CK-MB (CK-2) CK-MB (CK-2) Rel Index Albumin TSH Urine WBC (Auto) Salicylates 02/07/17 02/07/17 02/07/17 11:15 18:33 23:59 WBC RBC Hgb Hct MCV MCH RDW Plt Count Lymph % (Auto) Ocean % (Auto) Eos % (Auto) Seg Neutrophils % Seg Neuts % (Manual) Lymphocytes % (Manual) Seg Neutrophils # Seg Neutrophils # Man Lymphocytes # (Manual) APTT POC ABG pH ABG pH POC ABG pCO2 POC ABG pO2 ABG pO2 ABG HCO3 ABG Base Excess ABG Hemoglobin VBG pH Oxyhemoglobin Sodium Potassium Chloride Carbon Dioxide BUN Creatinine Glucose POC Glucose 239 H 176 H 186 H Lactic Acid Calcium AST Alkaline Phosphatase CK-MB (CK-2) CK-MB (CK-2) Rel Index Albumin TSH Urine WBC (Auto) Salicylates 02/08/17 02/08/17 02/08/17 06:15 11:55 16:55 WBC RBC Hgb Hct MCV MCH RDW Plt Count Lymph % (Auto) Ocean % (Auto) Eos % (Auto) Seg Neutrophils % Seg Neuts % (Manual) Lymphocytes % (Manual) Seg Neutrophils # Seg Neutrophils # Man Lymphocytes # (Manual) APTT POC ABG pH ABG pH POC ABG pCO2 POC ABG pO2 ABG pO2 ABG HCO3 ABG Base Excess ABG Hemoglobin VBG pH Oxyhemoglobin Sodium Potassium Chloride Carbon Dioxide BUN Creatinine Glucose POC Glucose 195 H 129 H 246 H Lactic Acid Calcium AST Alkaline Phosphatase CK-MB (CK-2) CK-MB (CK-2) Rel Index Albumin TSH Urine WBC (Auto) Salicylates 02/08/17 02/09/17 02/09/17 23:51 05:51 07:24 WBC 14.7 H RBC 3.39 L Hgb 8.9 L Hct 26.4 L MCV 78 L MCH 26 L RDW 18.4 H Plt Count 670 H Lymph % (Auto) 11.8 L Ocean % (Auto) Eos % (Auto) Seg Neutrophils % 81.2 H Seg Neuts % (Manual) Lymphocytes % (Manual) Seg Neutrophils # 11.9 H Seg Neutrophils # Man Lymphocytes # (Manual) APTT POC ABG pH ABG pH POC ABG pCO2 POC ABG pO2 ABG pO2 ABG HCO3 ABG Base Excess ABG Hemoglobin VBG pH Oxyhemoglobin Sodium Potassium Chloride Carbon Dioxide BUN Creatinine Glucose POC Glucose 262 H 295 H Lactic Acid Calcium AST Alkaline Phosphatase CK-MB (CK-2) CK-MB (CK-2) Rel Index Albumin TSH Urine WBC (Auto) Salicylates 02/09/17 02/09/17 02/09/17 07:24 12:08 18:39 WBC RBC Hgb Hct MCV MCH RDW Plt Count Lymph % (Auto) Ocean % (Auto) Eos % (Auto) Seg Neutrophils % Seg Neuts % (Manual) Lymphocytes % (Manual) Seg Neutrophils # Seg Neutrophils # Man Lymphocytes # (Manual) APTT POC ABG pH ABG pH POC ABG pCO2 POC ABG pO2 ABG pO2 ABG HCO3 ABG Base Excess ABG Hemoglobin VBG pH Oxyhemoglobin Sodium Potassium Chloride 95.5 L Carbon Dioxide BUN 52 H Creatinine Glucose 277 H POC Glucose 236 H 151 H Lactic Acid Calcium AST Alkaline Phosphatase CK-MB (CK-2) CK-MB (CK-2) Rel Index Albumin TSH Urine WBC (Auto) Salicylates 02/10/17 02/10/17 02/10/17 00:01 05:44 11:21 WBC RBC Hgb Hct MCV MCH RDW Plt Count Lymph % (Auto) Ocean % (Auto) Eos % (Auto) Seg Neutrophils % Seg Neuts % (Manual) Lymphocytes % (Manual) Seg Neutrophils # Seg Neutrophils # Man Lymphocytes # (Manual) APTT POC ABG pH ABG pH POC ABG pCO2 POC ABG pO2 ABG pO2 ABG HCO3 ABG Base Excess ABG Hemoglobin VBG pH Oxyhemoglobin Sodium Potassium Chloride Carbon Dioxide BUN Creatinine Glucose POC Glucose 210 H 201 H 233 H Lactic Acid Calcium AST Alkaline Phosphatase CK-MB (CK-2) CK-MB (CK-2) Rel Index Albumin TSH Urine WBC (Auto) Salicylates 02/10/17 02/10/17 02/11/17 17:29 23:56 05:24 WBC RBC Hgb Hct MCV MCH RDW Plt Count Lymph % (Auto) Ocean % (Auto) Eos % (Auto) Seg Neutrophils % Seg Neuts % (Manual) Lymphocytes % (Manual) Seg Neutrophils # Seg Neutrophils # Man Lymphocytes # (Manual) APTT POC ABG pH ABG pH POC ABG pCO2 POC ABG pO2 ABG pO2 ABG HCO3 ABG Base Excess ABG Hemoglobin VBG pH Oxyhemoglobin Sodium Potassium Chloride Carbon Dioxide BUN Creatinine Glucose POC Glucose 167 H 191 H 135 H Lactic Acid Calcium AST Alkaline Phosphatase CK-MB (CK-2) CK-MB (CK-2) Rel Index Albumin TSH Urine WBC (Auto) Salicylates 02/11/17 02/11/17 02/11/17 12:25 17:03 23:59 WBC RBC Hgb Hct MCV MCH RDW Plt Count Lymph % (Auto) Ocean % (Auto) Eos % (Auto) Seg Neutrophils % Seg Neuts % (Manual) Lymphocytes % (Manual) Seg Neutrophils # Seg Neutrophils # Man Lymphocytes # (Manual) APTT POC ABG pH ABG pH POC ABG pCO2 POC ABG pO2 ABG pO2 ABG HCO3 ABG Base Excess ABG Hemoglobin VBG pH Oxyhemoglobin Sodium Potassium Chloride Carbon Dioxide BUN Creatinine Glucose POC Glucose 275 H 172 H 215 H Lactic Acid Calcium AST Alkaline Phosphatase CK-MB (CK-2) CK-MB (CK-2) Rel Index Albumin TSH Urine WBC (Auto) Salicylates 02/12/17 02/12/17 02/12/17 05:39 11:33 17:55 WBC RBC Hgb Hct MCV MCH RDW Plt Count Lymph % (Auto) Ocean % (Auto) Eos % (Auto) Seg Neutrophils % Seg Neuts % (Manual) Lymphocytes % (Manual) Seg Neutrophils # Seg Neutrophils # Man Lymphocytes # (Manual) APTT POC ABG pH ABG pH POC ABG pCO2 POC ABG pO2 ABG pO2 ABG HCO3 ABG Base Excess ABG Hemoglobin VBG pH Oxyhemoglobin Sodium Potassium Chloride Carbon Dioxide BUN Creatinine Glucose POC Glucose 261 H 217 H 172 H Lactic Acid Calcium AST Alkaline Phosphatase CK-MB (CK-2) CK-MB (CK-2) Rel Index Albumin TSH Urine WBC (Auto) Salicylates 02/13/17 02/13/17 02/13/17 00:25 06:46 11:26 WBC RBC Hgb Hct MCV MCH RDW Plt Count Lymph % (Auto) Ocean % (Auto) Eos % (Auto) Seg Neutrophils % Seg Neuts % (Manual) Lymphocytes % (Manual) Seg Neutrophils # Seg Neutrophils # Man Lymphocytes # (Manual) APTT POC ABG pH ABG pH POC ABG pCO2 POC ABG pO2 ABG pO2 ABG HCO3 ABG Base Excess ABG Hemoglobin VBG pH Oxyhemoglobin Sodium Potassium Chloride Carbon Dioxide BUN Creatinine Glucose POC Glucose 207 H 219 H 231 H Lactic Acid Calcium AST Alkaline Phosphatase CK-MB (CK-2) CK-MB (CK-2) Rel Index Albumin TSH Urine WBC (Auto) Salicylates 02/13/17 02/13/17 02/14/17 17:12 23:44 05:44 WBC RBC Hgb Hct MCV MCH RDW Plt Count Lymph % (Auto) Ocean % (Auto) Eos % (Auto) Seg Neutrophils % Seg Neuts % (Manual) Lymphocytes % (Manual) Seg Neutrophils # Seg Neutrophils # Man Lymphocytes # (Manual) APTT POC ABG pH ABG pH POC ABG pCO2 POC ABG pO2 ABG pO2 ABG HCO3 ABG Base Excess ABG Hemoglobin VBG pH Oxyhemoglobin Sodium Potassium Chloride Carbon Dioxide BUN Creatinine Glucose POC Glucose 190 H 256 H 184 H Lactic Acid Calcium AST Alkaline Phosphatase CK-MB (CK-2) CK-MB (CK-2) Rel Index Albumin TSH Urine WBC (Auto) Salicylates 02/14/17 02/14/17 02/14/17 12:21 17:57 23:18 WBC RBC Hgb Hct MCV MCH RDW Plt Count Lymph % (Auto) Ocean % (Auto) Eos % (Auto) Seg Neutrophils % Seg Neuts % (Manual) Lymphocytes % (Manual) Seg Neutrophils # Seg Neutrophils # Man Lymphocytes # (Manual) APTT POC ABG pH ABG pH POC ABG pCO2 POC ABG pO2 ABG pO2 ABG HCO3 ABG Base Excess ABG Hemoglobin VBG pH Oxyhemoglobin Sodium Potassium Chloride Carbon Dioxide BUN Creatinine Glucose POC Glucose 233 H 155 H 165 H Lactic Acid Calcium AST Alkaline Phosphatase CK-MB (CK-2) CK-MB (CK-2) Rel Index Albumin TSH Urine WBC (Auto) Salicylates 02/15/17 02/15/17 02/15/17 05:33 11:45 17:20 WBC RBC Hgb Hct MCV MCH RDW Plt Count Lymph % (Auto) Ocean % (Auto) Eos % (Auto) Seg Neutrophils % Seg Neuts % (Manual) Lymphocytes % (Manual) Seg Neutrophils # Seg Neutrophils # Man Lymphocytes # (Manual) APTT POC ABG pH ABG pH POC ABG pCO2 POC ABG pO2 ABG pO2 ABG HCO3 ABG Base Excess ABG Hemoglobin VBG pH Oxyhemoglobin Sodium Potassium Chloride Carbon Dioxide BUN Creatinine Glucose POC Glucose 239 H 130 H 189 H Lactic Acid Calcium AST Alkaline Phosphatase CK-MB (CK-2) CK-MB (CK-2) Rel Index Albumin TSH Urine WBC (Auto) Salicylates 02/16/17 02/16/17 02/16/17 00:14 05:09 12:31 WBC RBC Hgb Hct MCV MCH RDW Plt Count Lymph % (Auto) Ocean % (Auto) Eos % (Auto) Seg Neutrophils % Seg Neuts % (Manual) Lymphocytes % (Manual) Seg Neutrophils # Seg Neutrophils # Man Lymphocytes # (Manual) APTT POC ABG pH ABG pH POC ABG pCO2 POC ABG pO2 ABG pO2 ABG HCO3 ABG Base Excess ABG Hemoglobin VBG pH Oxyhemoglobin Sodium Potassium Chloride Carbon Dioxide BUN Creatinine Glucose POC Glucose 197 H 226 H 178 H Lactic Acid Calcium AST Alkaline Phosphatase CK-MB (CK-2) CK-MB (CK-2) Rel Index Albumin TSH Urine WBC (Auto) Salicylates 02/16/17 02/16/17 02/17/17 16:35 23:49 05:37 WBC RBC Hgb Hct MCV MCH RDW Plt Count Lymph % (Auto) Ocean % (Auto) Eos % (Auto) Seg Neutrophils % Seg Neuts % (Manual) Lymphocytes % (Manual) Seg Neutrophils # Seg Neutrophils # Man Lymphocytes # (Manual) APTT POC ABG pH ABG pH POC ABG pCO2 POC ABG pO2 ABG pO2 ABG HCO3 ABG Base Excess ABG Hemoglobin VBG pH Oxyhemoglobin Sodium Potassium Chloride Carbon Dioxide BUN Creatinine Glucose POC Glucose 174 H 62 L 153 H Lactic Acid Calcium AST Alkaline Phosphatase CK-MB (CK-2) CK-MB (CK-2) Rel Index Albumin TSH Urine WBC (Auto) Salicylates 02/17/17 02/17/17 02/17/17 11:39 17:02 22:24 WBC RBC Hgb Hct MCV MCH RDW Plt Count Lymph % (Auto) Ocean % (Auto) Eos % (Auto) Seg Neutrophils % Seg Neuts % (Manual) Lymphocytes % (Manual) Seg Neutrophils # Seg Neutrophils # Man Lymphocytes # (Manual) APTT POC ABG pH ABG pH POC ABG pCO2 POC ABG pO2 ABG pO2 ABG HCO3 ABG Base Excess ABG Hemoglobin VBG pH Oxyhemoglobin Sodium Potassium Chloride Carbon Dioxide BUN Creatinine Glucose POC Glucose 231 H 112 H 116 H Lactic Acid Calcium AST Alkaline Phosphatase CK-MB (CK-2) CK-MB (CK-2) Rel Index Albumin TSH Urine WBC (Auto) Salicylates 02/18/17 02/19/17 02/19/17 15:34 05:09 07:57 WBC RBC Hgb Hct MCV MCH RDW Plt Count Lymph % (Auto) Ocean % (Auto) Eos % (Auto) Seg Neutrophils % Seg Neuts % (Manual) Lymphocytes % (Manual) Seg Neutrophils # Seg Neutrophils # Man Lymphocytes # (Manual) APTT POC ABG pH ABG pH POC ABG pCO2 POC ABG pO2 ABG pO2 ABG HCO3 ABG Base Excess ABG Hemoglobin VBG pH Oxyhemoglobin Sodium Potassium Chloride Carbon Dioxide BUN Creatinine Glucose POC Glucose 215 H 218 H 283 H Lactic Acid Calcium AST Alkaline Phosphatase CK-MB (CK-2) CK-MB (CK-2) Rel Index Albumin TSH Urine WBC (Auto) Salicylates 02/19/17 02/19/17 02/20/17 14:49 22:10 05:10 WBC RBC Hgb Hct MCV MCH RDW Plt Count Lymph % (Auto) Ocean % (Auto) Eos % (Auto) Seg Neutrophils % Seg Neuts % (Manual) Lymphocytes % (Manual) Seg Neutrophils # Seg Neutrophils # Man Lymphocytes # (Manual) APTT POC ABG pH ABG pH POC ABG pCO2 POC ABG pO2 ABG pO2 ABG HCO3 ABG Base Excess ABG Hemoglobin VBG pH Oxyhemoglobin Sodium Potassium Chloride Carbon Dioxide BUN Creatinine Glucose POC Glucose 290 H 169 H 209 H Lactic Acid Calcium AST Alkaline Phosphatase CK-MB (CK-2) CK-MB (CK-2) Rel Index Albumin TSH Urine WBC (Auto) Salicylates 02/20/17 02/20/17 02/21/17 15:05 21:52 02:00 WBC RBC Hgb Hct MCV MCH RDW Plt Count Lymph % (Auto) Ocean % (Auto) Eos % (Auto) Seg Neutrophils % Seg Neuts % (Manual) Lymphocytes % (Manual) Seg Neutrophils # Seg Neutrophils # Man Lymphocytes # (Manual) APTT POC ABG pH ABG pH POC ABG pCO2 POC ABG pO2 ABG pO2 ABG HCO3 ABG Base Excess ABG Hemoglobin VBG pH Oxyhemoglobin Sodium Potassium Chloride Carbon Dioxide BUN Creatinine Glucose POC Glucose 172 H 209 H 216 H Lactic Acid Calcium AST Alkaline Phosphatase CK-MB (CK-2) CK-MB (CK-2) Rel Index Albumin TSH Urine WBC (Auto) Salicylates 02/21/17 02/21/17 02/21/17 04:54 14:43 17:47 WBC RBC Hgb Hct MCV MCH RDW Plt Count Lymph % (Auto) Ocean % (Auto) Eos % (Auto) Seg Neutrophils % Seg Neuts % (Manual) Lymphocytes % (Manual) Seg Neutrophils # Seg Neutrophils # Man Lymphocytes # (Manual) APTT POC ABG pH ABG pH POC ABG pCO2 POC ABG pO2 ABG pO2 ABG HCO3 ABG Base Excess ABG Hemoglobin VBG pH Oxyhemoglobin Sodium Potassium Chloride Carbon Dioxide BUN Creatinine Glucose POC Glucose 227 H 290 H 220 H Lactic Acid Calcium AST Alkaline Phosphatase CK-MB (CK-2) CK-MB (CK-2) Rel Index Albumin TSH Urine WBC (Auto) Salicylates 02/21/17 02/22/17 02/22/17 22:02 04:52 15:25 WBC RBC Hgb Hct MCV MCH RDW Plt Count Lymph % (Auto) Ocean % (Auto) Eos % (Auto) Seg Neutrophils % Seg Neuts % (Manual) Lymphocytes % (Manual) Seg Neutrophils # Seg Neutrophils # Man Lymphocytes # (Manual) APTT POC ABG pH ABG pH POC ABG pCO2 POC ABG pO2 ABG pO2 ABG HCO3 ABG Base Excess ABG Hemoglobin VBG pH Oxyhemoglobin Sodium Potassium Chloride Carbon Dioxide BUN Creatinine Glucose POC Glucose 246 H 212 H 236 H Lactic Acid Calcium AST Alkaline Phosphatase CK-MB (CK-2) CK-MB (CK-2) Rel Index Albumin TSH Urine WBC (Auto) Salicylates 02/22/17 02/23/17 02/23/17 21:33 06:04 10:00 WBC RBC Hgb Hct MCV MCH RDW Plt Count Lymph % (Auto) Ocean % (Auto) Eos % (Auto) Seg Neutrophils % Seg Neuts % (Manual) Lymphocytes % (Manual) Seg Neutrophils # Seg Neutrophils # Man Lymphocytes # (Manual) APTT POC ABG pH ABG pH POC ABG pCO2 POC ABG pO2 ABG pO2 ABG HCO3 ABG Base Excess ABG Hemoglobin VBG pH Oxyhemoglobin Sodium Potassium Chloride Carbon Dioxide BUN Creatinine Glucose POC Glucose 255 H 208 H 174 H Lactic Acid Calcium AST Alkaline Phosphatase CK-MB (CK-2) CK-MB (CK-2) Rel Index Albumin TSH Urine WBC (Auto) Salicylates 02/23/17 02/23/17 02/23/17 12:52 17:15 21:51 WBC RBC Hgb Hct MCV MCH RDW Plt Count Lymph % (Auto) Ocean % (Auto) Eos % (Auto) Seg Neutrophils % Seg Neuts % (Manual) Lymphocytes % (Manual) Seg Neutrophils # Seg Neutrophils # Man Lymphocytes # (Manual) APTT POC ABG pH ABG pH POC ABG pCO2 POC ABG pO2 ABG pO2 ABG HCO3 ABG Base Excess ABG Hemoglobin VBG pH Oxyhemoglobin Sodium Potassium Chloride Carbon Dioxide BUN Creatinine Glucose POC Glucose 203 H 269 H 205 H Lactic Acid Calcium AST Alkaline Phosphatase CK-MB (CK-2) CK-MB (CK-2) Rel Index Albumin TSH Urine WBC (Auto) Salicylates 02/24/17 02/24/17 02/24/17 10:23 17:45 21:24 WBC RBC Hgb Hct MCV MCH RDW Plt Count Lymph % (Auto) Ocean % (Auto) Eos % (Auto) Seg Neutrophils % Seg Neuts % (Manual) Lymphocytes % (Manual) Seg Neutrophils # Seg Neutrophils # Man Lymphocytes # (Manual) APTT POC ABG pH ABG pH POC ABG pCO2 POC ABG pO2 ABG pO2 ABG HCO3 ABG Base Excess ABG Hemoglobin VBG pH Oxyhemoglobin Sodium Potassium Chloride Carbon Dioxide BUN Creatinine Glucose POC Glucose 280 H 239 H 254 H Lactic Acid Calcium AST Alkaline Phosphatase CK-MB (CK-2) CK-MB (CK-2) Rel Index Albumin TSH Urine WBC (Auto) Salicylates 02/25/17 02/25/17 02/25/17 02:12 05:17 14:32 WBC RBC Hgb Hct MCV MCH RDW Plt Count Lymph % (Auto) Ocean % (Auto) Eos % (Auto) Seg Neutrophils % Seg Neuts % (Manual) Lymphocytes % (Manual) Seg Neutrophils # Seg Neutrophils # Man Lymphocytes # (Manual) APTT POC ABG pH ABG pH POC ABG pCO2 POC ABG pO2 ABG pO2 ABG HCO3 ABG Base Excess ABG Hemoglobin VBG pH Oxyhemoglobin Sodium Potassium Chloride Carbon Dioxide BUN Creatinine Glucose POC Glucose 296 H 332 H 353 H Lactic Acid Calcium AST Alkaline Phosphatase CK-MB (CK-2) CK-MB (CK-2) Rel Index Albumin TSH Urine WBC (Auto) Salicylates 02/25/17 02/26/17 02/26/17 22:14 00:37 05:52 WBC RBC Hgb Hct MCV MCH RDW Plt Count Lymph % (Auto) Ocean % (Auto) Eos % (Auto) Seg Neutrophils % Seg Neuts % (Manual) Lymphocytes % (Manual) Seg Neutrophils # Seg Neutrophils # Man Lymphocytes # (Manual) APTT POC ABG pH ABG pH POC ABG pCO2 POC ABG pO2 ABG pO2 ABG HCO3 ABG Base Excess ABG Hemoglobin VBG pH Oxyhemoglobin Sodium Potassium Chloride Carbon Dioxide BUN Creatinine Glucose POC Glucose 201 H 233 H 269 H Lactic Acid Calcium AST Alkaline Phosphatase CK-MB (CK-2) CK-MB (CK-2) Rel Index Albumin TSH Urine WBC (Auto) Salicylates 02/26/17 02/26/17 02/26/17 11:48 13:49 21:26 WBC RBC Hgb Hct MCV MCH RDW Plt Count Lymph % (Auto) Ocean % (Auto) Eos % (Auto) Seg Neutrophils % Seg Neuts % (Manual) Lymphocytes % (Manual) Seg Neutrophils # Seg Neutrophils # Man Lymphocytes # (Manual) APTT POC ABG pH ABG pH POC ABG pCO2 POC ABG pO2 ABG pO2 ABG HCO3 ABG Base Excess ABG Hemoglobin VBG pH Oxyhemoglobin Sodium Potassium Chloride Carbon Dioxide BUN Creatinine Glucose POC Glucose 333 H 322 H 244 H Lactic Acid Calcium AST Alkaline Phosphatase CK-MB (CK-2) CK-MB (CK-2) Rel Index Albumin TSH Urine WBC (Auto) Salicylates 02/27/17 02/27/17 02/27/17 05:27 13:51 21:48 WBC RBC Hgb Hct MCV MCH RDW Plt Count Lymph % (Auto) Ocean % (Auto) Eos % (Auto) Seg Neutrophils % Seg Neuts % (Manual) Lymphocytes % (Manual) Seg Neutrophils # Seg Neutrophils # Man Lymphocytes # (Manual) APTT POC ABG pH ABG pH POC ABG pCO2 POC ABG pO2 ABG pO2 ABG HCO3 ABG Base Excess ABG Hemoglobin VBG pH Oxyhemoglobin Sodium Potassium Chloride Carbon Dioxide BUN Creatinine Glucose POC Glucose 217 H 239 H 254 H Lactic Acid Calcium AST Alkaline Phosphatase CK-MB (CK-2) CK-MB (CK-2) Rel Index Albumin TSH Urine WBC (Auto) Salicylates 02/28/17 02/28/17 02/28/17 05:38 11:00 19:44 WBC RBC Hgb Hct MCV MCH RDW Plt Count Lymph % (Auto) Ocean % (Auto) Eos % (Auto) Seg Neutrophils % Seg Neuts % (Manual) Lymphocytes % (Manual) Seg Neutrophils # Seg Neutrophils # Man Lymphocytes # (Manual) APTT POC ABG pH ABG pH POC ABG pCO2 POC ABG pO2 ABG pO2 ABG HCO3 ABG Base Excess ABG Hemoglobin VBG pH Oxyhemoglobin Sodium Potassium Chloride Carbon Dioxide BUN Creatinine Glucose POC Glucose 325 H 203 H 116 H Lactic Acid Calcium AST Alkaline Phosphatase CK-MB (CK-2) CK-MB (CK-2) Rel Index Albumin TSH Urine WBC (Auto) Salicylates 03/01/17 03/01/17 03/01/17 00:08 05:31 12:17 WBC RBC Hgb Hct MCV MCH RDW Plt Count Lymph % (Auto) Ocean % (Auto) Eos % (Auto) Seg Neutrophils % Seg Neuts % (Manual) Lymphocytes % (Manual) Seg Neutrophils # Seg Neutrophils # Man Lymphocytes # (Manual) APTT POC ABG pH ABG pH POC ABG pCO2 POC ABG pO2 ABG pO2 ABG HCO3 ABG Base Excess ABG Hemoglobin VBG pH Oxyhemoglobin Sodium Potassium Chloride Carbon Dioxide BUN Creatinine Glucose POC Glucose 202 H 183 H 184 H Lactic Acid Calcium AST Alkaline Phosphatase CK-MB (CK-2) CK-MB (CK-2) Rel Index Albumin TSH Urine WBC (Auto) Salicylates 03/02/17 03/02/17 03/02/17 00:12 05:58 18:22 WBC RBC Hgb Hct MCV MCH RDW Plt Count Lymph % (Auto) Ocean % (Auto) Eos % (Auto) Seg Neutrophils % Seg Neuts % (Manual) Lymphocytes % (Manual) Seg Neutrophils # Seg Neutrophils # Man Lymphocytes # (Manual) APTT POC ABG pH ABG pH POC ABG pCO2 POC ABG pO2 ABG pO2 ABG HCO3 ABG Base Excess ABG Hemoglobin VBG pH Oxyhemoglobin Sodium Potassium Chloride Carbon Dioxide BUN Creatinine Glucose POC Glucose 117 H 176 H 156 H Lactic Acid Calcium AST Alkaline Phosphatase CK-MB (CK-2) CK-MB (CK-2) Rel Index Albumin TSH Urine WBC (Auto) Salicylates 03/02/17 03/03/17 03/03/17 23:51 05:44 11:32 WBC RBC Hgb Hct MCV MCH RDW Plt Count Lymph % (Auto) Ocean % (Auto) Eos % (Auto) Seg Neutrophils % Seg Neuts % (Manual) Lymphocytes % (Manual) Seg Neutrophils # Seg Neutrophils # Man Lymphocytes # (Manual) APTT POC ABG pH ABG pH POC ABG pCO2 POC ABG pO2 ABG pO2 ABG HCO3 ABG Base Excess ABG Hemoglobin VBG pH Oxyhemoglobin Sodium Potassium Chloride Carbon Dioxide BUN Creatinine Glucose POC Glucose 211 H 117 H 133 H Lactic Acid Calcium AST Alkaline Phosphatase CK-MB (CK-2) CK-MB (CK-2) Rel Index Albumin TSH Urine WBC (Auto) Salicylates 03/03/17 03/03/17 03/04/17 17:43 23:17 05:30 WBC RBC Hgb Hct MCV MCH RDW Plt Count Lymph % (Auto) Ocean % (Auto) Eos % (Auto) Seg Neutrophils % Seg Neuts % (Manual) Lymphocytes % (Manual) Seg Neutrophils # Seg Neutrophils # Man Lymphocytes # (Manual) APTT POC ABG pH ABG pH POC ABG pCO2 POC ABG pO2 ABG pO2 ABG HCO3 ABG Base Excess ABG Hemoglobin VBG pH Oxyhemoglobin Sodium Potassium Chloride Carbon Dioxide BUN Creatinine Glucose POC Glucose 206 H 170 H 126 H Lactic Acid Calcium AST Alkaline Phosphatase CK-MB (CK-2) CK-MB (CK-2) Rel Index Albumin TSH Urine WBC (Auto) Salicylates 03/04/17 03/04/17 03/05/17 12:17 17:27 05:20 WBC RBC Hgb Hct MCV MCH RDW Plt Count Lymph % (Auto) Ocean % (Auto) Eos % (Auto) Seg Neutrophils % Seg Neuts % (Manual) Lymphocytes % (Manual) Seg Neutrophils # Seg Neutrophils # Man Lymphocytes # (Manual) APTT POC ABG pH ABG pH POC ABG pCO2 POC ABG pO2 ABG pO2 ABG HCO3 ABG Base Excess ABG Hemoglobin VBG pH Oxyhemoglobin Sodium Potassium Chloride Carbon Dioxide BUN Creatinine Glucose POC Glucose 135 H 121 H 185 H Lactic Acid Calcium AST Alkaline Phosphatase CK-MB (CK-2) CK-MB (CK-2) Rel Index Albumin TSH Urine WBC (Auto) Salicylates 03/05/17 03/06/17 03/06/17 11:50 11:52 17:34 WBC RBC Hgb Hct MCV MCH RDW Plt Count Lymph % (Auto) Ocean % (Auto) Eos % (Auto) Seg Neutrophils % Seg Neuts % (Manual) Lymphocytes % (Manual) Seg Neutrophils # Seg Neutrophils # Man Lymphocytes # (Manual) APTT POC ABG pH ABG pH POC ABG pCO2 POC ABG pO2 ABG pO2 ABG HCO3 ABG Base Excess ABG Hemoglobin VBG pH Oxyhemoglobin Sodium Potassium Chloride Carbon Dioxide BUN Creatinine Glucose POC Glucose 116 H 133 H 181 H Lactic Acid Calcium AST Alkaline Phosphatase CK-MB (CK-2) CK-MB (CK-2) Rel Index Albumin TSH Urine WBC (Auto) Salicylates 03/07/17 03/07/17 03/07/17 05:21 11:36 17:49 WBC RBC Hgb Hct MCV MCH RDW Plt Count Lymph % (Auto) Ocean % (Auto) Eos % (Auto) Seg Neutrophils % Seg Neuts % (Manual) Lymphocytes % (Manual) Seg Neutrophils # Seg Neutrophils # Man Lymphocytes # (Manual) APTT POC ABG pH ABG pH POC ABG pCO2 POC ABG pO2 ABG pO2 ABG HCO3 ABG Base Excess ABG Hemoglobin VBG pH Oxyhemoglobin Sodium Potassium Chloride Carbon Dioxide BUN Creatinine Glucose POC Glucose 159 H 137 H 158 H Lactic Acid Calcium AST Alkaline Phosphatase CK-MB (CK-2) CK-MB (CK-2) Rel Index Albumin TSH Urine WBC (Auto) Salicylates 03/08/17 03/08/17 03/08/17 05:51 13:58 23:50 WBC RBC Hgb Hct MCV MCH RDW Plt Count Lymph % (Auto) Ocean % (Auto) Eos % (Auto) Seg Neutrophils % Seg Neuts % (Manual) Lymphocytes % (Manual) Seg Neutrophils # Seg Neutrophils # Man Lymphocytes # (Manual) APTT POC ABG pH ABG pH POC ABG pCO2 POC ABG pO2 ABG pO2 ABG HCO3 ABG Base Excess ABG Hemoglobin VBG pH Oxyhemoglobin Sodium Potassium Chloride Carbon Dioxide BUN Creatinine Glucose POC Glucose 122 H 182 H 114 H Lactic Acid Calcium AST Alkaline Phosphatase CK-MB (CK-2) CK-MB (CK-2) Rel Index Albumin TSH Urine WBC (Auto) Salicylates 03/09/17 03/09/17 03/09/17 05:21 05:51 05:51 WBC RBC 3.61 L Hgb 9.5 L Hct 28.3 L MCV 79 L MCH 26 L RDW 17.8 H Plt Count Lymph % (Auto) Ocean % (Auto) Eos % (Auto) Seg Neutrophils % Seg Neuts % (Manual) Lymphocytes % (Manual) Seg Neutrophils # Seg Neutrophils # Man Lymphocytes # (Manual) APTT POC ABG pH ABG pH POC ABG pCO2 POC ABG pO2 ABG pO2 ABG HCO3 ABG Base Excess ABG Hemoglobin VBG pH Oxyhemoglobin Sodium 134 L Potassium Chloride 95.5 L Carbon Dioxide BUN 33 H Creatinine 0.5 L Glucose 143 H POC Glucose 153 H Lactic Acid Calcium AST Alkaline Phosphatase CK-MB (CK-2) CK-MB (CK-2) Rel Index Albumin TSH Urine WBC (Auto) Salicylates 03/09/17 03/09/17 03/09/17 12:10 18:13 21:00 WBC RBC Hgb Hct MCV MCH RDW Plt Count Lymph % (Auto) Ocean % (Auto) Eos % (Auto) Seg Neutrophils % Seg Neuts % (Manual) Lymphocytes % (Manual) Seg Neutrophils # Seg Neutrophils # Man Lymphocytes # (Manual) APTT POC ABG pH ABG pH POC ABG pCO2 POC ABG pO2 ABG pO2 ABG HCO3 ABG Base Excess ABG Hemoglobin VBG pH Oxyhemoglobin Sodium Potassium Chloride Carbon Dioxide BUN Creatinine Glucose POC Glucose 203 H 221 H 198 H Lactic Acid Calcium AST Alkaline Phosphatase CK-MB (CK-2) CK-MB (CK-2) Rel Index Albumin TSH Urine WBC (Auto) Salicylates 03/09/17 03/10/17 03/10/17 23:58 05:09 05:09 WBC RBC Hgb 10.3 L Hct 30.5 L MCV 78 L MCH 26 L RDW 17.9 H Plt Count Lymph % (Auto) Ocean % (Auto) 10.0 H Eos % (Auto) 6.0 H Seg Neutrophils % Seg Neuts % (Manual) Lymphocytes % (Manual) Seg Neutrophils # Seg Neutrophils # Man Lymphocytes # (Manual) APTT POC ABG pH ABG pH POC ABG pCO2 POC ABG pO2 ABG pO2 ABG HCO3 ABG Base Excess ABG Hemoglobin VBG pH Oxyhemoglobin Sodium 132 L Potassium Chloride 92.2 L Carbon Dioxide BUN 33 H Creatinine 0.5 L Glucose 50 L POC Glucose 167 H Lactic Acid Calcium AST Alkaline Phosphatase CK-MB (CK-2) CK-MB (CK-2) Rel Index Albumin TSH Urine WBC (Auto) Salicylates 03/10/17 03/10/17 03/10/17 05:33 05:34 11:48 WBC RBC Hgb Hct MCV MCH RDW Plt Count Lymph % (Auto) Ocean % (Auto) Eos % (Auto) Seg Neutrophils % Seg Neuts % (Manual) Lymphocytes % (Manual) Seg Neutrophils # Seg Neutrophils # Man Lymphocytes # (Manual) APTT POC ABG pH ABG pH POC ABG pCO2 POC ABG pO2 ABG pO2 ABG HCO3 ABG Base Excess ABG Hemoglobin VBG pH Oxyhemoglobin Sodium Potassium Chloride Carbon Dioxide BUN Creatinine Glucose POC Glucose 52 L 53 L 148 H Lactic Acid Calcium AST Alkaline Phosphatase CK-MB (CK-2) CK-MB (CK-2) Rel Index Albumin TSH Urine WBC (Auto) Salicylates 03/10/17 03/10/17 03/11/17 17:53 23:47 05:18 WBC RBC Hgb Hct MCV MCH RDW Plt Count Lymph % (Auto) Ocean % (Auto) Eos % (Auto) Seg Neutrophils % Seg Neuts % (Manual) Lymphocytes % (Manual) Seg Neutrophils # Seg Neutrophils # Man Lymphocytes # (Manual) APTT POC ABG pH ABG pH POC ABG pCO2 POC ABG pO2 ABG pO2 ABG HCO3 ABG Base Excess ABG Hemoglobin VBG pH Oxyhemoglobin Sodium Potassium Chloride Carbon Dioxide BUN Creatinine Glucose POC Glucose 189 H 398 H 126 H Lactic Acid Calcium AST Alkaline Phosphatase CK-MB (CK-2) CK-MB (CK-2) Rel Index Albumin TSH Urine WBC (Auto) Salicylates 03/11/17 03/11/17 03/11/17 11:53 17:30 23:10 WBC RBC Hgb Hct MCV MCH RDW Plt Count Lymph % (Auto) Ocean % (Auto) Eos % (Auto) Seg Neutrophils % Seg Neuts % (Manual) Lymphocytes % (Manual) Seg Neutrophils # Seg Neutrophils # Man Lymphocytes # (Manual) APTT POC ABG pH ABG pH POC ABG pCO2 POC ABG pO2 ABG pO2 ABG HCO3 ABG Base Excess ABG Hemoglobin VBG pH Oxyhemoglobin Sodium Potassium Chloride Carbon Dioxide BUN Creatinine Glucose POC Glucose 198 H 142 H 244 H Lactic Acid Calcium AST Alkaline Phosphatase CK-MB (CK-2) CK-MB (CK-2) Rel Index Albumin TSH Urine WBC (Auto) Salicylates 03/12/17 03/12/17 03/12/17 04:36 11:49 17:23 WBC RBC Hgb Hct MCV MCH RDW Plt Count Lymph % (Auto) Ocean % (Auto) Eos % (Auto) Seg Neutrophils % Seg Neuts % (Manual) Lymphocytes % (Manual) Seg Neutrophils # Seg Neutrophils # Man Lymphocytes # (Manual) APTT POC ABG pH ABG pH POC ABG pCO2 POC ABG pO2 ABG pO2 ABG HCO3 ABG Base Excess ABG Hemoglobin VBG pH Oxyhemoglobin Sodium Potassium Chloride Carbon Dioxide BUN Creatinine Glucose POC Glucose 205 H 197 H 209 H Lactic Acid Calcium AST Alkaline Phosphatase CK-MB (CK-2) CK-MB (CK-2) Rel Index Albumin TSH Urine WBC (Auto) Salicylates 03/12/17 03/13/17 03/13/17 23:51 05:32 11:43 WBC RBC Hgb Hct MCV MCH RDW Plt Count Lymph % (Auto) Ocean % (Auto) Eos % (Auto) Seg Neutrophils % Seg Neuts % (Manual) Lymphocytes % (Manual) Seg Neutrophils # Seg Neutrophils # Man Lymphocytes # (Manual) APTT POC ABG pH ABG pH POC ABG pCO2 POC ABG pO2 ABG pO2 ABG HCO3 ABG Base Excess ABG Hemoglobin VBG pH Oxyhemoglobin Sodium Potassium Chloride Carbon Dioxide BUN Creatinine Glucose POC Glucose 210 H 154 H 164 H Lactic Acid Calcium AST Alkaline Phosphatase CK-MB (CK-2) CK-MB (CK-2) Rel Index Albumin TSH Urine WBC (Auto) Salicylates 03/13/17 03/13/17 03/14/17 17:11 23:26 05:42 WBC RBC Hgb Hct MCV MCH RDW Plt Count Lymph % (Auto) Ocean % (Auto) Eos % (Auto) Seg Neutrophils % Seg Neuts % (Manual) Lymphocytes % (Manual) Seg Neutrophils # Seg Neutrophils # Man Lymphocytes # (Manual) APTT POC ABG pH ABG pH POC ABG pCO2 POC ABG pO2 ABG pO2 ABG HCO3 ABG Base Excess ABG Hemoglobin VBG pH Oxyhemoglobin Sodium Potassium Chloride Carbon Dioxide BUN Creatinine Glucose POC Glucose 195 H 240 H 230 H Lactic Acid Calcium AST Alkaline Phosphatase CK-MB (CK-2) CK-MB (CK-2) Rel Index Albumin TSH Urine WBC (Auto) Salicylates 03/14/17 03/14/17 03/14/17 14:04 17:34 23:42 WBC RBC Hgb Hct MCV MCH RDW Plt Count Lymph % (Auto) Ocean % (Auto) Eos % (Auto) Seg Neutrophils % Seg Neuts % (Manual) Lymphocytes % (Manual) Seg Neutrophils # Seg Neutrophils # Man Lymphocytes # (Manual) APTT POC ABG pH ABG pH POC ABG pCO2 POC ABG pO2 ABG pO2 ABG HCO3 ABG Base Excess ABG Hemoglobin VBG pH Oxyhemoglobin Sodium Potassium Chloride Carbon Dioxide BUN Creatinine Glucose POC Glucose 227 H 186 H 225 H Lactic Acid Calcium AST Alkaline Phosphatase CK-MB (CK-2) CK-MB (CK-2) Rel Index Albumin TSH Urine WBC (Auto) Salicylates 03/15/17 03/15/17 03/15/17 05:21 17:13 21:37 WBC RBC Hgb Hct MCV MCH RDW Plt Count Lymph % (Auto) Ocean % (Auto) Eos % (Auto) Seg Neutrophils % Seg Neuts % (Manual) Lymphocytes % (Manual) Seg Neutrophils # Seg Neutrophils # Man Lymphocytes # (Manual) APTT POC ABG pH ABG pH POC ABG pCO2 POC ABG pO2 ABG pO2 ABG HCO3 ABG Base Excess ABG Hemoglobin VBG pH Oxyhemoglobin Sodium Potassium Chloride Carbon Dioxide BUN Creatinine Glucose POC Glucose 244 H 203 H 216 H Lactic Acid Calcium AST Alkaline Phosphatase CK-MB (CK-2) CK-MB (CK-2) Rel Index Albumin TSH Urine WBC (Auto) Salicylates 03/16/17 03/16/17 03/16/17 05:52 18:07 21:54 WBC RBC Hgb Hct MCV MCH RDW Plt Count Lymph % (Auto) Ocean % (Auto) Eos % (Auto) Seg Neutrophils % Seg Neuts % (Manual) Lymphocytes % (Manual) Seg Neutrophils # Seg Neutrophils # Man Lymphocytes # (Manual) APTT POC ABG pH ABG pH POC ABG pCO2 POC ABG pO2 ABG pO2 ABG HCO3 ABG Base Excess ABG Hemoglobin VBG pH Oxyhemoglobin Sodium Potassium Chloride Carbon Dioxide BUN Creatinine Glucose POC Glucose 248 H 254 H 244 H Lactic Acid Calcium AST Alkaline Phosphatase CK-MB (CK-2) CK-MB (CK-2) Rel Index Albumin TSH Urine WBC (Auto) Salicylates 03/17/17 03/17/17 03/17/17 07:07 07:42 07:43 WBC RBC Hgb 9.7 L Hct 29.1 L MCV 78 L MCH 26 L RDW 17.4 H Plt Count Lymph % (Auto) Ocean % (Auto) Eos % (Auto) Seg Neutrophils % Seg Neuts % (Manual) Lymphocytes % (Manual) Seg Neutrophils # Seg Neutrophils # Man Lymphocytes # (Manual) APTT POC ABG pH ABG pH POC ABG pCO2 POC ABG pO2 ABG pO2 ABG HCO3 ABG Base Excess ABG Hemoglobin VBG pH Oxyhemoglobin Sodium Potassium Chloride 96.6 L Carbon Dioxide BUN 30 H Creatinine 0.5 L Glucose 251 H POC Glucose 222 H Lactic Acid Calcium AST Alkaline Phosphatase CK-MB (CK-2) CK-MB (CK-2) Rel Index Albumin TSH Urine WBC (Auto) Salicylates 03/17/17 03/17/17 03/18/17 14:08 21:20 14:24 WBC RBC Hgb Hct MCV MCH RDW Plt Count Lymph % (Auto) Ocean % (Auto) Eos % (Auto) Seg Neutrophils % Seg Neuts % (Manual) Lymphocytes % (Manual) Seg Neutrophils # Seg Neutrophils # Man Lymphocytes # (Manual) APTT POC ABG pH ABG pH POC ABG pCO2 POC ABG pO2 ABG pO2 ABG HCO3 ABG Base Excess ABG Hemoglobin VBG pH Oxyhemoglobin Sodium Potassium Chloride Carbon Dioxide BUN Creatinine Glucose POC Glucose 281 H 239 H 195 H Lactic Acid Calcium AST Alkaline Phosphatase CK-MB (CK-2) CK-MB (CK-2) Rel Index Albumin TSH Urine WBC (Auto) Salicylates 03/18/17 03/19/17 03/19/17 21:37 04:57 14:23 WBC RBC Hgb Hct MCV MCH RDW Plt Count Lymph % (Auto) Ocean % (Auto) Eos % (Auto) Seg Neutrophils % Seg Neuts % (Manual) Lymphocytes % (Manual) Seg Neutrophils # Seg Neutrophils # Man Lymphocytes # (Manual) APTT POC ABG pH ABG pH POC ABG pCO2 POC ABG pO2 ABG pO2 ABG HCO3 ABG Base Excess ABG Hemoglobin VBG pH Oxyhemoglobin Sodium Potassium Chloride Carbon Dioxide BUN Creatinine Glucose POC Glucose 227 H 205 H 277 H Lactic Acid Calcium AST Alkaline Phosphatase CK-MB (CK-2) CK-MB (CK-2) Rel Index Albumin TSH Urine WBC (Auto) Salicylates 03/19/17 03/19/17 03/20/17 20:31 21:47 04:55 WBC RBC Hgb Hct MCV MCH RDW Plt Count Lymph % (Auto) Ocean % (Auto) Eos % (Auto) Seg Neutrophils % Seg Neuts % (Manual) Lymphocytes % (Manual) Seg Neutrophils # Seg Neutrophils # Man Lymphocytes # (Manual) APTT POC ABG pH ABG pH POC ABG pCO2 POC ABG pO2 ABG pO2 ABG HCO3 ABG Base Excess ABG Hemoglobin VBG pH Oxyhemoglobin Sodium Potassium Chloride Carbon Dioxide BUN Creatinine Glucose POC Glucose 256 H 270 H 202 H Lactic Acid Calcium AST Alkaline Phosphatase CK-MB (CK-2) CK-MB (CK-2) Rel Index Albumin TSH Urine WBC (Auto) Salicylates 03/20/17 03/20/17 03/21/17 14:09 21:40 05:09 WBC RBC Hgb Hct MCV MCH RDW Plt Count Lymph % (Auto) Ocean % (Auto) Eos % (Auto) Seg Neutrophils % Seg Neuts % (Manual) Lymphocytes % (Manual) Seg Neutrophils # Seg Neutrophils # Man Lymphocytes # (Manual) APTT POC ABG pH ABG pH POC ABG pCO2 POC ABG pO2 ABG pO2 ABG HCO3 ABG Base Excess ABG Hemoglobin VBG pH Oxyhemoglobin Sodium Potassium Chloride Carbon Dioxide BUN Creatinine Glucose POC Glucose 200 H 214 H 233 H Lactic Acid Calcium AST Alkaline Phosphatase CK-MB (CK-2) CK-MB (CK-2) Rel Index Albumin TSH Urine WBC (Auto) Salicylates
[2017-03-21] MEDS: HEPARIN SUB-Q SCH ×2 (10:36→22:44)
[2017-03-21] MEDS: PEPCID PO SCH ×2 (10:36→22:44)
--- NOTE | 2017-03-21 15:30 | Progress Note ---
Assessment and Plan Hypoglycemic brain injury Persistent vegetative state Metabolic encephalopathy Hypoglycemia/hypothermia, resolved Acute respiratory failure mechanical ventilator greater than 96 hours UTI with klebsiella, treated ( Cx + on 01/28), then with ESBL likely colonization hyponatremia, Hypothyroidism IDDM Hypertension low grade Fever, resolved - Cont supportive care and current medication. Monitor vitals, repeat cx on - no growth - increased dose of long acting insulin to 15 unit - Patient is DNR- needs guardianship from the state to give consent for further management, as has no family to give consent. Brief History: 51 YO Male with CKD,HTN, DM presents to ED after found down and unresponsive by his neighbor, who subsequently called EMS. Upon arrival, patient found unresponsive on the floor with a serum glucose of 21, patient has a known history of alcohol abuse and delirium tremens. The patient was administered D5 approximate 500 mls during transport without change in mental status/level of consciousness. Pt seen and evaluated in ED was was found to be unable to protect his airway. Pt intubated and placed on vent support. Pt found to have evidence of hypothyroidism. He was started on Synthroid. He has since been in the ICU. creative services coordinator try to locate family, even spoke to the family who he lives with. They themselves were unaware of any family members. After ethics committee meeting on the patient. The decision was made to make him DO NOT RESUSCITATE and to transfer him to hospice. Given his very poor prognosis and poor likelihood of recovery. It was decided that was not his best interest to get trach and PEG. Therefore he'll be transferred to the hospice intubated. Now Awaiting on court ordered /state guardianship. Hospitalist Physical - Physical exam Narrative exam: General: comatose HEENT: Moist mucous membranes, , no lymphadenopathy Neck: supple Cardiac: S1-S2 heard Lungs: mechnical ventilated breath sounds Abdomen: soft , nontender, nondistended, bowel sounds positive Extremities: no edema clubbing or cyanosis Skin: no rash or lesions Neurologic: opens eyes, no response to deep painful stimuli, does not follow commend Subjective Date of service: 03/21/17 Principal diagnosis: Acute respiratory failure,encephalopathy Interval history: patient remains comatose, no movement of extremities afebrile o/n, no clinical change Objective - Constitutional Vitals: Vital Signs - 12hr 03/21/17 03/21/17 03/21/17 03:44 04:00 04:23 Temperature 99.1 F Pulse Rate 68 67 Respiratory 12 Rate Blood Pressure 112/66 112/66 O2 Sat by Pulse 100 100 Oximetry 03/21/17 03/21/17 03/21/17 05:00 06:00 07:00 Temperature Pulse Rate 63 65 66 Respiratory 12 12 16 Rate Blood Pressure 112/66 112/66 112/66 O2 Sat by Pulse 100 100 100 Oximetry 03/21/17 03/21/17 03/21/17 08:00 08:44 10:00 Temperature 99.2 F Pulse Rate 66 70 69 Respiratory 15 Rate Blood Pressure 146/86 146/86 O2 Sat by Pulse 100 100 Oximetry 03/21/17 03/21/17 12:00 12:43 Temperature 98.9 F Pulse Rate 67 Respiratory Rate Blood Pressure O2 Sat by Pulse 100 Oximetry - Labs CBC & Chem 7: 03/17/17 07:43 03/17/17 07:42 Labs: Abnormal lab results 03/20/17 03/21/17 03/21/17 Range/Units 21:40 05:09 14:06 POC Glucose 214 H 233 H 250 H (70-105)
[2017-03-22] MEDS: SYNTHROID PO SCH (05:28)
[2017-03-22] MEDS: HumuLIN R SUB-Q SCH ×3 (05:40→22:00)
[2017-03-22] MEDS: PEPCID PO SCH ×2 (09:39→22:00)
[2017-03-22] MEDS: HEPARIN SUB-Q SCH ×2 (09:39→22:00)
--- NOTE | 2017-03-22 10:25 | Progress Note ---
Assessment and Plan Hypoglycemic brain injury Persistent vegetative state Metabolic encephalopathy Hypoglycemia/hypothermia, resolved Acute respiratory failure mechanical ventilator greater than 96 hours UTI with klebsiella, treated ( Cx + on 01/28), then with ESBL likely colonization hyponatremia, Hypothyroidism IDDM Hypertension low grade Fever, resolved - Cont supportive care and current medication. Monitor vitals, repeat cx on - no growth - increased dose of long acting insulin to 15 unit - Patient is DNR- needs guardianship from the state to give consent for further management, as has no family to give consent. Brief History: 51 YO Male with CKD,HTN, DM presents to ED after found down and unresponsive by his neighbor, who subsequently called EMS. Upon arrival, patient found unresponsive on the floor with a serum glucose of 21, patient has a known history of alcohol abuse and delirium tremens. The patient was administered D5 approximate 500 mls during transport without change in mental status/level of consciousness. Pt seen and evaluated in ED was was found to be unable to protect his airway. Pt intubated and placed on vent support. Pt found to have evidence of hypothyroidism. He was started on Synthroid. He has since been in the ICU. client services associate try to locate family, even spoke to the family who he lives with. They themselves were unaware of any family members. After ethics committee meeting on the patient. The decision was made to make him DO NOT RESUSCITATE and to transfer him to hospice. Given his very poor prognosis and poor likelihood of recovery. It was decided that was not his best interest to get trach and PEG. Therefore he'll be transferred to the hospice intubated. Now Awaiting on court ordered /state guardianship. Hospitalist Physical - Physical exam Narrative exam: General: comatose HEENT: Moist mucous membranes, , no lymphadenopathy Neck: supple Cardiac: S1-S2 heard Lungs: mechnical ventilated breath sounds Abdomen: soft , nontender, nondistended, bowel sounds positive Extremities: no edema clubbing or cyanosis Skin: no rash or lesions Neurologic: opens eyes, no response to deep painful stimuli, does not follow commend Subjective Date of service: 03/22/17 Principal diagnosis: Acute respiratory failure,encephalopathy Interval history: patient remains comatose, no movement of extremities afebrile o/n, no clinical change Objective - Constitutional Vitals: Vital Signs - 12hr 03/21/17 03/21/17 03/22/17 23:00 23:37 00:00 Temperature 98.7 F Pulse Rate 62 63 Respiratory 15 Rate Blood Pressure 147/81 147/81 O2 Sat by Pulse 100 100 Oximetry 03/22/17 03/22/17 03/22/17 04:00 07:38 09:29 Temperature 98.7 F Pulse Rate 64 74 Respiratory Rate Blood Pressure 131/80 136/84 O2 Sat by Pulse 100 100 Oximetry - Labs CBC & Chem 7: 03/17/17 07:43 03/17/17 07:42 Labs: Abnormal lab results 03/21/17 03/21/17 Range/Units 14:06 21:26 POC Glucose 250 H 155 H (70-105)
[2017-03-23] MEDS: SYNTHROID PO SCH (06:53)
[2017-03-23] MEDS: HumuLIN R SUB-Q SCH ×2 (07:23→15:40)
--- NOTE | 2017-03-23 08:45 | Progress Note ---
Assessment and Plan Acute respiratory failure,prolonged vent/ETT support Fever. None Hypoglycemia episode-mild hyperglicemic,improving Metabolic encephalopathy. Prolonged vegetative state ,status unchanged Hypothyroidism; doubt myxedema coma UTI/SIRS. Resolved Recommendations Currently the patient is DO NOT RESUSCITATE. Frustrating case. minimizing labs at this point, following comfort care and nutrition. 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 complex patient. Critical care time with a 31 minutes of [id number] evaluation and coordination of care Subjective Date of service: 03/23/17 Principal diagnosis: Acute respiratory failure,encephalopathy Interval history: intubated Objective Vital Signs - 12hr 03/22/17 03/22/17 03/22/17 21:00 22:00 23:00 Temperature Pulse Rate 75 70 67 Respiratory 18 18 17 Rate Blood Pressure 121/78 121/78 121/78 O2 Sat by Pulse 100 100 100 Oximetry 03/22/17 03/22/17 03/23/17 23:24 23:40 00:00 Temperature 98.0 F Pulse Rate 68 67 Respiratory 15 Rate Blood Pressure 121/78 121/78 O2 Sat by Pulse 100 100 Oximetry 03/23/17 03/23/17 03/23/17 01:00 04:00 04:02 Temperature 97.8 F Pulse Rate 67 69 Respiratory 16 Rate Blood Pressure 126/81 126/81 O2 Sat by Pulse 100 100 Oximetry 03/23/17 07:42 Temperature Pulse Rate 71 Respiratory Rate Blood Pressure 126/81 O2 Sat by Pulse 100 Oximetry Constitutional: no acute distress, other (intubated, on vent support) Eyes: non-icteric ENT: oropharynx moist Neck: supple Effort: normal Ascultation: Bilateral: clear, diminished breath sounds Cardiovascular: regular rate and rhythm Gastrointestinal: normoactive bowel sounds, soft, non-tender, non-distended Integumentary: normal Extremities: no cyanosis, no edema, pink and warm Neurologic: pupils equal and round, other (eyes open, not not following any commands. ) Psychiatric: other (unable to obtain) CBC and BMP: 03/17/17 07:43 03/17/17 07:42 ABG, PT/INR, D-dimer: ABG POC ABG pH 7.442 (7.35-7.45) 01/31/17 18:55 ABG pH 7.420 pH Units (7.350-7.450) 01/17/17 04:35 POC ABG pCO2 32.8 (35-45) L 01/31/17 18:55 ABG pCO2 34.5 mm Hg 01/17/17 04:35 POC ABG pO2 82 (80-105) 01/31/17 18:55 ABG pO2 160.3 mm Hg (80.0-90.0) H 01/17/17 04:35 POC ABG HCO3 22.4 01/31/17 18:55 POC ABG Total CO2 23 01/31/17 18:55 POC ABG O2 Sat 97 01/31/17 18:55 ABG O2 Saturation 99.0 % (95.0-99.0) 01/17/17 04:35 PT/INR, D-dimer PT 14.1 Sec. (12.2-14.9) 01/17/17 04:10 INR 1.04 (0.87-1.13) 01/17/17 04:10 Abnormal lab findings: Abnormal Labs 01/09/17 01/09/17 01/09/17 10:16 10:16 10:16 WBC RBC Hgb 9.7 L Hct 28.4 L MCV 76 L MCH 26 L RDW 17.2 H Plt Count 448 H Lymph % (Auto) [place] % (Auto) Eos % (Auto) Seg Neutrophils % 79.5 H Seg Neuts % (Manual) Lymphocytes % (Manual) Seg Neutrophils # Seg Neutrophils # Man Lymphocytes # (Manual) APTT 39.6 H POC ABG pH ABG pH POC ABG pCO2 POC ABG pO2 ABG pO2 ABG HCO3 ABG Base Excess ABG Hemoglobin VBG pH Oxyhemoglobin Sodium 132 L Potassium Chloride 96.7 L Carbon Dioxide 21 L BUN 34 H Creatinine Glucose POC Glucose Lactic Acid Calcium 8.3 L AST Alkaline Phosphatase 151 H CK-MB (CK-2) 7.1 H CK-MB (CK-2) Rel Index 5.2 H Albumin 3.3 L TSH Urine WBC (Auto) Salicylates 01/09/17 01/09/17 01/09/17 10:16 10:16 10:16 WBC RBC Hgb Hct MCV MCH RDW Plt Count Lymph % (Auto) [place] % (Auto) Eos % (Auto) Seg Neutrophils % Seg Neuts % (Manual) Lymphocytes % (Manual) Seg Neutrophils # Seg Neutrophils # Man Lymphocytes # (Manual) APTT POC ABG pH ABG pH POC ABG pCO2 POC ABG pO2 ABG pO2 ABG HCO3 ABG Base Excess ABG Hemoglobin VBG pH 7.284 L Oxyhemoglobin Sodium Potassium Chloride Carbon Dioxide BUN Creatinine Glucose POC Glucose Lactic Acid Calcium AST Alkaline Phosphatase CK-MB (CK-2) CK-MB (CK-2) Rel Index Albumin TSH 52.800 H Urine WBC (Auto) Salicylates < 0.3 L 01/09/17 01/09/17 01/09/17 10:23 11:14 12:49 WBC RBC Hgb Hct MCV MCH RDW Plt Count Lymph % (Auto) [place] % (Auto) Eos % (Auto) Seg Neutrophils % Seg Neuts % (Manual) Lymphocytes % (Manual) Seg Neutrophils # Seg Neutrophils # Man Lymphocytes # (Manual) APTT POC ABG pH ABG pH POC ABG pCO2 POC ABG pO2 643 H ABG pO2 ABG HCO3 ABG Base Excess ABG Hemoglobin VBG pH Oxyhemoglobin Sodium Potassium Chloride Carbon Dioxide BUN Creatinine Glucose POC Glucose < 40 L Lactic Acid Calcium AST Alkaline Phosphatase CK-MB (CK-2) CK-MB (CK-2) Rel Index Albumin TSH Urine WBC (Auto) 61.0 H Salicylates 01/09/17 01/09/17 01/09/17 13:13 14:21 15:09 WBC RBC Hgb Hct MCV MCH RDW Plt Count Lymph % (Auto) [place] % (Auto) Eos % (Auto) Seg Neutrophils % Seg Neuts % (Manual) Lymphocytes % (Manual) Seg Neutrophils # Seg Neutrophils # Man Lymphocytes # (Manual) APTT POC ABG pH ABG pH POC ABG pCO2 POC ABG pO2 ABG pO2 ABG HCO3 ABG Base Excess ABG Hemoglobin VBG pH Oxyhemoglobin Sodium Potassium Chloride Carbon Dioxide BUN Creatinine Glucose POC Glucose 128 H 65 L 120 H Lactic Acid Calcium AST Alkaline Phosphatase CK-MB (CK-2) CK-MB (CK-2) Rel Index Albumin TSH Urine WBC (Auto) Salicylates 01/09/17 01/09/17 01/10/17 16:28 17:14 04:30 WBC 24.1 H RBC 3.38 L Hgb 8.5 L Hct 26.0 L MCV 77 L MCH 25 L RDW 17.9 H Plt Count 474 H Lymph % (Auto) [place] % (Auto) Eos % (Auto) Seg Neutrophils % Seg Neuts % (Manual) 88.0 H Lymphocytes % (Manual) 4.0 L Seg Neutrophils # Seg Neutrophils # Man 21.2 H Lymphocytes # (Manual) 1.0 L APTT POC ABG pH ABG pH POC ABG pCO2 POC ABG pO2 ABG pO2 ABG HCO3 ABG Base Excess ABG Hemoglobin VBG pH Oxyhemoglobin Sodium Potassium Chloride Carbon Dioxide BUN Creatinine Glucose POC Glucose 44 L 112 H Lactic Acid Calcium AST Alkaline Phosphatase CK-MB (CK-2) CK-MB (CK-2) Rel Index Albumin TSH Urine WBC (Auto) Salicylates 01/10/17 01/10/17 01/10/17 04:30 05:41 05:45 WBC RBC Hgb Hct MCV MCH RDW Plt Count Lymph % (Auto) [place] % (Auto) Eos % (Auto) Seg Neutrophils % Seg Neuts % (Manual) Lymphocytes % (Manual) Seg Neutrophils # Seg Neutrophils # Man Lymphocytes # (Manual) APTT POC ABG pH ABG pH POC ABG pCO2 26.6 L POC ABG pO2 207 H ABG pO2 ABG HCO3 ABG Base Excess ABG Hemoglobin VBG pH Oxyhemoglobin Sodium Potassium Chloride Carbon Dioxide 17 L BUN 27 H Creatinine Glucose POC Glucose 68 L Lactic Acid Calcium 7.5 L AST Alkaline Phosphatase CK-MB (CK-2) CK-MB (CK-2) Rel Index Albumin TSH Urine WBC (Auto) Salicylates 01/10/17 01/10/17 01/10/17 07:47 10:50 13:41 WBC RBC Hgb Hct MCV MCH RDW Plt Count Lymph % (Auto) [place] % (Auto) Eos % (Auto) Seg Neutrophils % Seg Neuts % (Manual) Lymphocytes % (Manual) Seg Neutrophils # Seg Neutrophils # Man Lymphocytes # (Manual) APTT POC ABG pH ABG pH POC ABG pCO2 POC ABG pO2 ABG pO2 ABG HCO3 ABG Base Excess ABG Hemoglobin VBG pH Oxyhemoglobin Sodium Potassium Chloride Carbon Dioxide BUN Creatinine Glucose POC Glucose 148 H 165 H 114 H Lactic Acid Calcium AST Alkaline Phosphatase CK-MB (CK-2) CK-MB (CK-2) Rel Index Albumin TSH Urine WBC (Auto) Salicylates 01/10/17 01/10/17 01/10/17 20:20 21:39 23:24 WBC RBC Hgb Hct MCV MCH RDW Plt Count Lymph % (Auto) [place] % (Auto) Eos % (Auto) Seg Neutrophils % Seg Neuts % (Manual) Lymphocytes % (Manual) Seg Neutrophils # Seg Neutrophils # Man Lymphocytes # (Manual) APTT POC ABG pH ABG pH POC ABG pCO2 POC ABG pO2 ABG pO2 ABG HCO3 ABG Base Excess ABG Hemoglobin VBG pH Oxyhemoglobin Sodium Potassium Chloride Carbon Dioxide BUN Creatinine Glucose POC Glucose 150 H 175 H 155 H Lactic Acid Calcium AST Alkaline Phosphatase CK-MB (CK-2) CK-MB (CK-2) Rel Index Albumin TSH Urine WBC (Auto) Salicylates 01/11/17 01/11/17 01/11/17 00:19 04:06 05:20 WBC 15.2 H RBC 3.40 L Hgb 8.9 L Hct 26.3 L MCV 78 L MCH 26 L RDW 18.6 H Plt Count 462 H Lymph % (Auto) 13.2 L [place] % (Auto) Eos % (Auto) Seg Neutrophils % 80.8 H Seg Neuts % (Manual) Lymphocytes % (Manual) Seg Neutrophils # 12.3 H Seg Neutrophils # Man Lymphocytes # (Manual) APTT POC ABG pH 7.463 H ABG pH POC ABG pCO2 26.2 L POC ABG pO2 185 H ABG pO2 ABG HCO3 ABG Base Excess ABG Hemoglobin VBG pH Oxyhemoglobin Sodium Potassium Chloride Carbon Dioxide BUN Creatinine Glucose POC Glucose 163 H Lactic Acid Calcium AST Alkaline Phosphatase CK-MB (CK-2) CK-MB (CK-2) Rel Index Albumin TSH Urine WBC (Auto) Salicylates 01/11/17 01/11/17 01/11/17 05:20 06:21 07:57 WBC RBC Hgb Hct MCV MCH RDW Plt Count Lymph % (Auto) [place] % (Auto) Eos % (Auto) Seg Neutrophils % Seg Neuts % (Manual) Lymphocytes % (Manual) Seg Neutrophils # Seg Neutrophils # Man Lymphocytes # (Manual) APTT POC ABG pH ABG pH POC ABG pCO2 POC ABG pO2 ABG pO2 ABG HCO3 ABG Base Excess ABG Hemoglobin VBG pH Oxyhemoglobin Sodium Potassium 3.4 L Chloride 111.5 H Carbon Dioxide 17 L BUN Creatinine Glucose 147 H POC Glucose 139 H 188 H Lactic Acid Calcium 8.0 L AST Alkaline Phosphatase CK-MB (CK-2) CK-MB (CK-2) Rel Index Albumin TSH Urine WBC (Auto) Salicylates 01/11/17 01/11/17 01/11/17 11:46 16:50 23:15 WBC RBC Hgb Hct MCV MCH RDW Plt Count Lymph % (Auto) [place] % (Auto) Eos % (Auto) Seg Neutrophils % Seg Neuts % (Manual) Lymphocytes % (Manual) Seg Neutrophils # Seg Neutrophils # Man Lymphocytes # (Manual) APTT POC ABG pH ABG pH POC ABG pCO2 POC ABG pO2 ABG pO2 ABG HCO3 ABG Base Excess ABG Hemoglobin VBG pH Oxyhemoglobin Sodium Potassium Chloride Carbon Dioxide BUN Creatinine Glucose POC Glucose 199 H 235 H 155 H Lactic Acid Calcium AST Alkaline Phosphatase CK-MB (CK-2) CK-MB (CK-2) Rel Index Albumin TSH Urine WBC (Auto) Salicylates 01/12/17 01/12/17 01/12/17 05:02 06:56 14:50 WBC RBC Hgb Hct MCV MCH RDW Plt Count Lymph % (Auto) [place] % (Auto) Eos % (Auto) Seg Neutrophils % Seg Neuts % (Manual) Lymphocytes % (Manual) Seg Neutrophils # Seg Neutrophils # Man Lymphocytes # (Manual) APTT POC ABG pH ABG pH POC ABG pCO2 28.0 L POC ABG pO2 178 H ABG pO2 ABG HCO3 ABG Base Excess ABG Hemoglobin VBG pH Oxyhemoglobin Sodium Potassium Chloride Carbon Dioxide BUN Creatinine Glucose POC Glucose 119 H 164 H Lactic Acid Calcium AST Alkaline Phosphatase CK-MB (CK-2) CK-MB (CK-2) Rel Index Albumin TSH Urine WBC (Auto) Salicylates 01/13/17 01/13/17 01/13/17 03:37 03:37 04:26 WBC RBC 3.61 L Hgb 9.3 L Hct 28.0 L MCV 78 L MCH 26 L RDW 18.2 H Plt Count Lymph % (Auto) [place] % (Auto) Eos % (Auto) Seg Neutrophils % Seg Neuts % (Manual) Lymphocytes % (Manual) Seg Neutrophils # Seg Neutrophils # Man Lymphocytes # (Manual) APTT POC ABG pH 7.485 H ABG pH POC ABG pCO2 25.4 L POC ABG pO2 73 L ABG pO2 ABG HCO3 ABG Base Excess ABG Hemoglobin VBG pH Oxyhemoglobin Sodium Potassium Chloride 112.4 H Carbon Dioxide 19 L BUN Creatinine Glucose 118 H POC Glucose Lactic Acid Calcium 8.0 L AST Alkaline Phosphatase CK-MB (CK-2) CK-MB (CK-2) Rel Index Albumin TSH Urine WBC (Auto) Salicylates 01/13/17 01/13/17 01/13/17 06:15 11:50 17:31 WBC RBC Hgb Hct MCV MCH RDW Plt Count Lymph % (Auto) [place] % (Auto) Eos % (Auto) Seg Neutrophils % Seg Neuts % (Manual) Lymphocytes % (Manual) Seg Neutrophils # Seg Neutrophils # Man Lymphocytes # (Manual) APTT POC ABG pH ABG pH POC ABG pCO2 POC ABG pO2 ABG pO2 ABG HCO3 ABG Base Excess ABG Hemoglobin VBG pH Oxyhemoglobin Sodium Potassium Chloride Carbon Dioxide BUN Creatinine Glucose POC Glucose 116 H 171 H 203 H Lactic Acid Calcium AST Alkaline Phosphatase CK-MB (CK-2) CK-MB (CK-2) Rel Index Albumin TSH Urine WBC (Auto) Salicylates 01/14/17 01/14/17 01/14/17 00:02 04:50 04:50 WBC RBC 3.32 L Hgb 8.5 L Hct 26.1 L MCV 79 L MCH 26 L RDW 18.2 H Plt Count Lymph % (Auto) [place] % (Auto) 9.0 H Eos % (Auto) Seg Neutrophils % Seg Neuts % (Manual) Lymphocytes % (Manual) Seg Neutrophils # Seg Neutrophils # Man Lymphocytes # (Manual) APTT POC ABG pH ABG pH POC ABG pCO2 POC ABG pO2 ABG pO2 ABG HCO3 ABG Base Excess ABG Hemoglobin VBG pH Oxyhemoglobin Sodium Potassium Chloride 112.5 H Carbon Dioxide BUN Creatinine Glucose 149 H POC Glucose 157 H Lactic Acid Calcium 8.1 L AST Alkaline Phosphatase CK-MB (CK-2) CK-MB (CK-2) Rel Index Albumin TSH Urine WBC (Auto) Salicylates 01/14/17 01/14/17 01/14/17 05:10 11:27 14:07 WBC RBC Hgb Hct MCV MCH RDW Plt Count Lymph % (Auto) [place] % (Auto) Eos % (Auto) Seg Neutrophils % Seg Neuts % (Manual) Lymphocytes % (Manual) Seg Neutrophils # Seg Neutrophils # Man Lymphocytes # (Manual) APTT POC ABG pH ABG pH POC ABG pCO2 POC ABG pO2 ABG pO2 ABG HCO3 ABG Base Excess ABG Hemoglobin VBG pH Oxyhemoglobin Sodium Potassium Chloride Carbon Dioxide BUN Creatinine Glucose POC Glucose 176 H 147 H Lactic Acid Calcium AST Alkaline Phosphatase CK-MB (CK-2) CK-MB (CK-2) Rel Index Albumin TSH Urine WBC (Auto) 53.0 H Salicylates 01/14/17 01/15/17 01/15/17 16:52 00:04 05:26 WBC RBC Hgb Hct MCV MCH RDW Plt Count Lymph % (Auto) [place] % (Auto) Eos % (Auto) Seg Neutrophils % Seg Neuts % (Manual) Lymphocytes % (Manual) Seg Neutrophils # Seg Neutrophils # Man Lymphocytes # (Manual) APTT POC ABG pH ABG pH POC ABG pCO2 POC ABG pO2 ABG pO2 ABG HCO3 ABG Base Excess ABG Hemoglobin VBG pH Oxyhemoglobin Sodium Potassium Chloride Carbon Dioxide BUN Creatinine Glucose POC Glucose 131 H 193 H 215 H Lactic Acid Calcium AST Alkaline Phosphatase CK-MB (CK-2) CK-MB (CK-2) Rel Index Albumin TSH Urine WBC (Auto) Salicylates 01/15/17 01/15/17 01/15/17 11:49 17:47 21:33 WBC RBC Hgb Hct MCV MCH RDW Plt Count Lymph % (Auto) [place] % (Auto) Eos % (Auto) Seg Neutrophils % Seg Neuts % (Manual) Lymphocytes % (Manual) Seg Neutrophils # Seg Neutrophils # Man Lymphocytes # (Manual) APTT POC ABG pH ABG pH POC ABG pCO2 POC ABG pO2 ABG pO2 ABG HCO3 ABG Base Excess ABG Hemoglobin VBG pH Oxyhemoglobin Sodium Potassium Chloride Carbon Dioxide BUN Creatinine Glucose POC Glucose 121 H 211 H 275 H Lactic Acid Calcium AST Alkaline Phosphatase CK-MB (CK-2) CK-MB (CK-2) Rel Index Albumin TSH Urine WBC (Auto) Salicylates 01/16/17 01/16/17 01/16/17 04:30 05:28 13:45 WBC RBC Hgb Hct MCV MCH RDW Plt Count Lymph % (Auto) [place] % (Auto) Eos % (Auto) Seg Neutrophils % Seg Neuts % (Manual) Lymphocytes % (Manual) Seg Neutrophils # Seg Neutrophils # Man Lymphocytes # (Manual) APTT POC ABG pH ABG pH 7.457 H POC ABG pCO2 POC ABG pO2 ABG pO2 55.1 L ABG HCO3 19.4 L ABG Base Excess -4.0 L ABG Hemoglobin 6.8 L VBG pH Oxyhemoglobin 94.9 L Sodium Potassium Chloride Carbon Dioxide BUN Creatinine Glucose POC Glucose 271 H 236 H Lactic Acid Calcium AST Alkaline Phosphatase CK-MB (CK-2) CK-MB (CK-2) Rel Index Albumin TSH Urine WBC (Auto) Salicylates 01/16/17 01/17/17 01/17/17 21:39 04:10 04:10 WBC 4.4 L RBC 2.98 L Hgb 7.7 L Hct 23.3 L MCV 78 L MCH 26 L RDW 18.1 H Plt Count Lymph % (Auto) [place] % (Auto) Eos % (Auto) Seg Neutrophils % Seg Neuts % (Manual) Lymphocytes % (Manual) Seg Neutrophils # Seg Neutrophils # Man Lymphocytes # (Manual) APTT POC ABG pH ABG pH POC ABG pCO2 POC ABG pO2 ABG pO2 ABG HCO3 ABG Base Excess ABG Hemoglobin VBG pH Oxyhemoglobin Sodium Potassium 3.3 L Chloride 108.7 H Carbon Dioxide 20 L BUN 8 L Creatinine Glucose 202 H POC Glucose 258 H Lactic Acid Calcium 7.6 L AST Alkaline Phosphatase CK-MB (CK-2) CK-MB (CK-2) Rel Index Albumin TSH Urine WBC (Auto) Salicylates 01/17/17 01/17/17 01/17/17 04:35 12:23 16:01 WBC RBC Hgb Hct MCV MCH RDW Plt Count Lymph % (Auto) [place] % (Auto) Eos % (Auto) Seg Neutrophils % Seg Neuts % (Manual) Lymphocytes % (Manual) Seg Neutrophils # Seg Neutrophils # Man Lymphocytes # (Manual) APTT POC ABG pH ABG pH POC ABG pCO2 POC ABG pO2 ABG pO2 160.3 H ABG HCO3 ABG Base Excess -2.3 L ABG Hemoglobin 7.9 L VBG pH Oxyhemoglobin Sodium Potassium Chloride Carbon Dioxide BUN Creatinine Glucose POC Glucose 321 H 239 H Lactic Acid Calcium AST Alkaline Phosphatase CK-MB (CK-2) CK-MB (CK-2) Rel Index Albumin TSH Urine WBC (Auto) Salicylates 01/18/17 01/18/17 01/18/17 05:07 12:09 17:54 WBC RBC Hgb Hct MCV MCH RDW Plt Count Lymph % (Auto) [place] % (Auto) Eos % (Auto) Seg Neutrophils % Seg Neuts % (Manual) Lymphocytes % (Manual) Seg Neutrophils # Seg Neutrophils # Man Lymphocytes # (Manual) APTT POC ABG pH ABG pH POC ABG pCO2 POC ABG pO2 ABG pO2 ABG HCO3 ABG Base Excess ABG Hemoglobin VBG pH Oxyhemoglobin Sodium Potassium Chloride Carbon Dioxide BUN Creatinine Glucose POC Glucose 155 H 203 H 132 H Lactic Acid Calcium AST Alkaline Phosphatase CK-MB (CK-2) CK-MB (CK-2) Rel Index Albumin TSH Urine WBC (Auto) Salicylates 01/18/17 01/19/17 01/19/17 23:43 04:28 12:11 WBC RBC Hgb Hct MCV MCH RDW Plt Count Lymph % (Auto) [place] % (Auto) Eos % (Auto) Seg Neutrophils % Seg Neuts % (Manual) Lymphocytes % (Manual) Seg Neutrophils # Seg Neutrophils # Man Lymphocytes # (Manual) APTT POC ABG pH ABG pH POC ABG pCO2 POC ABG pO2 ABG pO2 ABG HCO3 ABG Base Excess ABG Hemoglobin VBG pH Oxyhemoglobin Sodium Potassium Chloride Carbon Dioxide BUN Creatinine Glucose POC Glucose 125 H 182 H 153 H Lactic Acid Calcium AST Alkaline Phosphatase CK-MB (CK-2) CK-MB (CK-2) Rel Index Albumin TSH Urine WBC (Auto) Salicylates 01/19/17 01/20/17 01/20/17 17:23 00:12 05:44 WBC RBC Hgb Hct MCV MCH RDW Plt Count Lymph % (Auto) [place] % (Auto) Eos % (Auto) Seg Neutrophils % Seg Neuts % (Manual) Lymphocytes % (Manual) Seg Neutrophils # Seg Neutrophils # Man Lymphocytes # (Manual) APTT POC ABG pH ABG pH POC ABG pCO2 POC ABG pO2 ABG pO2 ABG HCO3 ABG Base Excess ABG Hemoglobin VBG pH Oxyhemoglobin Sodium Potassium Chloride Carbon Dioxide BUN Creatinine Glucose POC Glucose 66 L 139 H 176 H Lactic Acid Calcium AST Alkaline Phosphatase CK-MB (CK-2) CK-MB (CK-2) Rel Index Albumin TSH Urine WBC (Auto) Salicylates 01/20/17 01/20/17 01/20/17 11:48 17:42 23:43 WBC RBC Hgb Hct MCV MCH RDW Plt Count Lymph % (Auto) [place] % (Auto) Eos % (Auto) Seg Neutrophils % Seg Neuts % (Manual) Lymphocytes % (Manual) Seg Neutrophils # Seg Neutrophils # Man Lymphocytes # (Manual) APTT POC ABG pH ABG pH POC ABG pCO2 POC ABG pO2 ABG pO2 ABG HCO3 ABG Base Excess ABG Hemoglobin VBG pH Oxyhemoglobin Sodium Potassium Chloride Carbon Dioxide BUN Creatinine Glucose POC Glucose 218 H 132 H 178 H Lactic Acid Calcium AST Alkaline Phosphatase CK-MB (CK-2) CK-MB (CK-2) Rel Index Albumin TSH Urine WBC (Auto) Salicylates 01/21/17 01/21/17 01/21/17 05:34 11:17 23:37 WBC RBC Hgb Hct MCV MCH RDW Plt Count Lymph % (Auto) [place] % (Auto) Eos % (Auto) Seg Neutrophils % Seg Neuts % (Manual) Lymphocytes % (Manual) Seg Neutrophils # Seg Neutrophils # Man Lymphocytes # (Manual) APTT POC ABG pH ABG pH POC ABG pCO2 POC ABG pO2 ABG pO2 ABG HCO3 ABG Base Excess ABG Hemoglobin VBG pH Oxyhemoglobin Sodium Potassium Chloride Carbon Dioxide BUN Creatinine Glucose POC Glucose 106 H 213 H 140 H Lactic Acid Calcium AST Alkaline Phosphatase CK-MB (CK-2) CK-MB (CK-2) Rel Index Albumin TSH Urine WBC (Auto) Salicylates 01/22/17 01/22/17 01/22/17 04:00 04:00 04:58 WBC RBC 3.26 L Hgb 8.3 L Hct 25.5 L MCV 78 L MCH 25 L RDW 17.9 H Plt Count Lymph % (Auto) [place] % (Auto) 7.9 H Eos % (Auto) 6.2 H Seg Neutrophils % Seg Neuts % (Manual) Lymphocytes % (Manual) Seg Neutrophils # Seg Neutrophils # Man Lymphocytes # (Manual) APTT POC ABG pH ABG pH POC ABG pCO2 POC ABG pO2 ABG pO2 ABG HCO3 ABG Base Excess ABG Hemoglobin VBG pH Oxyhemoglobin Sodium Potassium Chloride 95.5 L Carbon Dioxide 31 H D BUN Creatinine Glucose 134 H POC Glucose 146 H Lactic Acid Calcium AST 44 H Alkaline Phosphatase 379 H CK-MB (CK-2) CK-MB (CK-2) Rel Index Albumin 2.7 L TSH Urine WBC (Auto) Salicylates 01/22/17 01/22/17 01/22/17 12:12 18:12 23:39 WBC RBC Hgb Hct MCV MCH RDW Plt Count Lymph % (Auto) [place] % (Auto) Eos % (Auto) Seg Neutrophils % Seg Neuts % (Manual) Lymphocytes % (Manual) Seg Neutrophils # Seg Neutrophils # Man Lymphocytes # (Manual) APTT POC ABG pH ABG pH POC ABG pCO2 POC ABG pO2 ABG pO2 ABG HCO3 ABG Base Excess ABG Hemoglobin VBG pH Oxyhemoglobin Sodium Potassium Chloride Carbon Dioxide BUN Creatinine Glucose POC Glucose 255 H 182 H 134 H Lactic Acid Calcium AST Alkaline Phosphatase CK-MB (CK-2) CK-MB (CK-2) Rel Index Albumin TSH Urine WBC (Auto) Salicylates 01/23/17 01/23/17 01/23/17 04:43 12:12 17:36 WBC RBC Hgb Hct MCV MCH RDW Plt Count Lymph % (Auto) [place] % (Auto) Eos % (Auto) Seg Neutrophils % Seg Neuts % (Manual) Lymphocytes % (Manual) Seg Neutrophils # Seg Neutrophils # Man Lymphocytes # (Manual) APTT POC ABG pH ABG pH POC ABG pCO2 POC ABG pO2 ABG pO2 ABG HCO3 ABG Base Excess ABG Hemoglobin VBG pH Oxyhemoglobin Sodium Potassium Chloride Carbon Dioxide BUN Creatinine Glucose POC Glucose 218 H 128 H 156 H Lactic Acid Calcium AST Alkaline Phosphatase CK-MB (CK-2) CK-MB (CK-2) Rel Index Albumin TSH Urine WBC (Auto) Salicylates 01/24/17 01/24/17 01/24/17 00:08 05:16 11:40 WBC RBC Hgb Hct MCV MCH RDW Plt Count Lymph % (Auto) [place] % (Auto) Eos % (Auto) Seg Neutrophils % Seg Neuts % (Manual) Lymphocytes % (Manual) Seg Neutrophils # Seg Neutrophils # Man Lymphocytes # (Manual) APTT POC ABG pH ABG pH POC ABG pCO2 POC ABG pO2 ABG pO2 ABG HCO3 ABG Base Excess ABG Hemoglobin VBG pH Oxyhemoglobin Sodium Potassium Chloride Carbon Dioxide BUN Creatinine Glucose POC Glucose 129 H 169 H 187 H Lactic Acid Calcium AST Alkaline Phosphatase CK-MB (CK-2) CK-MB (CK-2) Rel Index Albumin TSH Urine WBC (Auto) Salicylates 01/24/17 01/24/17 01/25/17 17:43 23:23 04:56 WBC RBC Hgb Hct MCV MCH RDW Plt Count Lymph % (Auto) [place] % (Auto) Eos % (Auto) Seg Neutrophils % Seg Neuts % (Manual) Lymphocytes % (Manual) Seg Neutrophils # Seg Neutrophils # Man Lymphocytes # (Manual) APTT POC ABG pH ABG pH POC ABG pCO2 POC ABG pO2 ABG pO2 ABG HCO3 ABG Base Excess ABG Hemoglobin VBG pH Oxyhemoglobin Sodium Potassium Chloride Carbon Dioxide BUN Creatinine Glucose POC Glucose 215 H 222 H 210 H Lactic Acid Calcium AST Alkaline Phosphatase CK-MB (CK-2) CK-MB (CK-2) Rel Index Albumin TSH Urine WBC (Auto) Salicylates 01/25/17 01/25/17 01/26/17 11:52 17:37 00:02 WBC RBC Hgb Hct MCV MCH RDW Plt Count Lymph % (Auto) [place] % (Auto) Eos % (Auto) Seg Neutrophils % Seg Neuts % (Manual) Lymphocytes % (Manual) Seg Neutrophils # Seg Neutrophils # Man Lymphocytes # (Manual) APTT POC ABG pH ABG pH POC ABG pCO2 POC ABG pO2 ABG pO2 ABG HCO3 ABG Base Excess ABG Hemoglobin VBG pH Oxyhemoglobin Sodium Potassium Chloride Carbon Dioxide BUN Creatinine Glucose POC Glucose 284 H 218 H 192 H Lactic Acid Calcium AST Alkaline Phosphatase CK-MB (CK-2) CK-MB (CK-2) Rel Index Albumin TSH Urine WBC (Auto) Salicylates 01/26/17 01/26/17 01/26/17 05:33 12:17 17:50 WBC RBC Hgb Hct MCV MCH RDW Plt Count Lymph % (Auto) [place] % (Auto) Eos % (Auto) Seg Neutrophils % Seg Neuts % (Manual) Lymphocytes % (Manual) Seg Neutrophils # Seg Neutrophils # Man Lymphocytes # (Manual) APTT POC ABG pH ABG pH POC ABG pCO2 POC ABG pO2 ABG pO2 ABG HCO3 ABG Base Excess ABG Hemoglobin VBG pH Oxyhemoglobin Sodium Potassium Chloride Carbon Dioxide BUN Creatinine Glucose POC Glucose 199 H 227 H 229 H Lactic Acid Calcium AST Alkaline Phosphatase CK-MB (CK-2) CK-MB (CK-2) Rel Index Albumin TSH Urine WBC (Auto) Salicylates 01/26/17 01/27/17 01/27/17 23:57 05:31 11:42 WBC RBC Hgb Hct MCV MCH RDW Plt Count Lymph % (Auto) [place] % (Auto) Eos % (Auto) Seg Neutrophils % Seg Neuts % (Manual) Lymphocytes % (Manual) Seg Neutrophils # Seg Neutrophils # Man Lymphocytes # (Manual) APTT POC ABG pH ABG pH POC ABG pCO2 POC ABG pO2 ABG pO2 ABG HCO3 ABG Base Excess ABG Hemoglobin VBG pH Oxyhemoglobin Sodium Potassium Chloride Carbon Dioxide BUN Creatinine Glucose POC Glucose 186 H 285 H 260 H Lactic Acid Calcium AST Alkaline Phosphatase CK-MB (CK-2) CK-MB (CK-2) Rel Index Albumin TSH Urine WBC (Auto) Salicylates 01/27/17 01/27/17 01/27/17 17:47 23:58 Unknown WBC 12.1 H RBC 3.28 L Hgb 8.5 L Hct 25.5 L MCV 78 L MCH 26 L RDW 16.8 H Plt Count 601 H Lymph % (Auto) [place] % (Auto) Eos % (Auto) Seg Neutrophils % Seg Neuts % (Manual) Lymphocytes % (Manual) Seg Neutrophils # Seg Neutrophils # Man Lymphocytes # (Manual) APTT POC ABG pH ABG pH POC ABG pCO2 POC ABG pO2 ABG pO2 ABG HCO3 ABG Base Excess ABG Hemoglobin VBG pH Oxyhemoglobin Sodium Potassium Chloride Carbon Dioxide BUN Creatinine Glucose POC Glucose 329 H 225 H Lactic Acid Calcium AST Alkaline Phosphatase CK-MB (CK-2) CK-MB (CK-2) Rel Index Albumin TSH Urine WBC (Auto) Salicylates 01/27/17 01/28/17 01/28/17 Unknown 03:44 03:44 WBC RBC 3.14 L Hgb 8.2 L Hct 24.1 L MCV 77 L MCH 26 L RDW 16.9 H Plt Count 567 H Lymph % (Auto) [place] % (Auto) Eos % (Auto) Seg Neutrophils % Seg Neuts % (Manual) Lymphocytes % (Manual) Seg Neutrophils # Seg Neutrophils # Man Lymphocytes # (Manual) APTT POC ABG pH ABG pH POC ABG pCO2 POC ABG pO2 ABG pO2 ABG HCO3 ABG Base Excess ABG Hemoglobin VBG pH Oxyhemoglobin Sodium 128 L Potassium 5.4 H Chloride 87.5 L Carbon Dioxide BUN 44 H 42 H Creatinine Glucose 250 H 128 H POC Glucose Lactic Acid Calcium AST Alkaline Phosphatase CK-MB (CK-2) CK-MB (CK-2) Rel Index Albumin TSH Urine WBC (Auto) Salicylates 01/28/17 01/28/17 01/28/17 11:43 16:47 17:52 WBC RBC Hgb Hct MCV MCH RDW Plt Count Lymph % (Auto) [place] % (Auto) Eos % (Auto) Seg Neutrophils % Seg Neuts % (Manual) Lymphocytes % (Manual) Seg Neutrophils # Seg Neutrophils # Man Lymphocytes # (Manual) APTT POC ABG pH ABG pH POC ABG pCO2 POC ABG pO2 ABG pO2 ABG HCO3 ABG Base Excess ABG Hemoglobin VBG pH Oxyhemoglobin Sodium Potassium Chloride Carbon Dioxide BUN Creatinine Glucose POC Glucose 351 H 249 H Lactic Acid Calcium AST Alkaline Phosphatase CK-MB (CK-2) CK-MB (CK-2) Rel Index Albumin TSH Urine WBC (Auto) > 182.0 H Salicylates 01/29/17 01/29/17 01/29/17 05:25 05:25 09:32 WBC 13.6 H RBC 3.25 L Hgb 8.3 L Hct 25.1 L MCV 77 L MCH 26 L RDW 16.8 H Plt Count 514 H Lymph % (Auto) [place] % (Auto) Eos % (Auto) Seg Neutrophils % Seg Neuts % (Manual) Lymphocytes % (Manual) Seg Neutrophils # Seg Neutrophils # Man Lymphocytes # (Manual) APTT POC ABG pH ABG pH POC ABG pCO2 POC ABG pO2 ABG pO2 ABG HCO3 ABG Base Excess ABG Hemoglobin VBG pH Oxyhemoglobin Sodium Potassium Chloride 97.8 L Carbon Dioxide BUN 34 H Creatinine Glucose 222 H POC Glucose Lactic Acid 2.50 H* Calcium AST Alkaline Phosphatase CK-MB (CK-2) CK-MB (CK-2) Rel Index Albumin TSH Urine WBC (Auto) Salicylates 01/29/17 01/29/17 01/29/17 11:56 18:11 23:55 WBC RBC Hgb Hct MCV MCH RDW Plt Count Lymph % (Auto) [place] % (Auto) Eos % (Auto) Seg Neutrophils % Seg Neuts % (Manual) Lymphocytes % (Manual) Seg Neutrophils # Seg Neutrophils # Man Lymphocytes # (Manual) APTT POC ABG pH ABG pH POC ABG pCO2 POC ABG pO2 ABG pO2 ABG HCO3 ABG Base Excess ABG Hemoglobin VBG pH Oxyhemoglobin Sodium Potassium Chloride Carbon Dioxide BUN Creatinine Glucose POC Glucose 261 H 215 H 176 H Lactic Acid Calcium AST Alkaline Phosphatase CK-MB (CK-2) CK-MB (CK-2) Rel Index Albumin TSH Urine WBC (Auto) Salicylates 01/30/17 01/30/17 01/30/17 05:31 05:31 05:34 WBC 15.2 H RBC 3.09 L Hgb 7.9 L Hct 23.9 L MCV 77 L MCH 26 L RDW 16.9 H Plt Count 569 H Lymph % (Auto) [place] % (Auto) Eos % (Auto) Seg Neutrophils % Seg Neuts % (Manual) Lymphocytes % (Manual) Seg Neutrophils # Seg Neutrophils # Man Lymphocytes # (Manual) APTT POC ABG pH ABG pH POC ABG pCO2 POC ABG pO2 ABG pO2 ABG HCO3 ABG Base Excess ABG Hemoglobin VBG pH Oxyhemoglobin Sodium Potassium Chloride Carbon Dioxide BUN 24 H Creatinine Glucose 235 H POC Glucose 243 H Lactic Acid Calcium AST Alkaline Phosphatase CK-MB (CK-2) CK-MB (CK-2) Rel Index Albumin TSH Urine WBC (Auto) Salicylates 01/30/17 01/30/17 01/30/17 11:38 17:58 23:29 WBC RBC Hgb Hct MCV MCH RDW Plt Count Lymph % (Auto) [place] % (Auto) Eos % (Auto) Seg Neutrophils % Seg Neuts % (Manual) Lymphocytes % (Manual) Seg Neutrophils # Seg Neutrophils # Man Lymphocytes # (Manual) APTT POC ABG pH ABG pH POC ABG pCO2 POC ABG pO2 ABG pO2 ABG HCO3 ABG Base Excess ABG Hemoglobin VBG pH Oxyhemoglobin Sodium Potassium Chloride Carbon Dioxide BUN Creatinine Glucose POC Glucose 298 H 208 H 245 H Lactic Acid Calcium AST Alkaline Phosphatase CK-MB (CK-2) CK-MB (CK-2) Rel Index Albumin TSH Urine WBC (Auto) Salicylates 01/31/17 01/31/17 01/31/17 04:39 04:39 05:57 WBC 11.4 H RBC 3.22 L Hgb 8.2 L Hct 24.9 L MCV 78 L MCH 25 L RDW 17.2 H Plt Count 576 H Lymph % (Auto) [place] % (Auto) Eos % (Auto) Seg Neutrophils % Seg Neuts % (Manual) Lymphocytes % (Manual) Seg Neutrophils # Seg Neutrophils # Man Lymphocytes # (Manual) APTT POC ABG pH ABG pH POC ABG pCO2 POC ABG pO2 ABG pO2 ABG HCO3 ABG Base Excess ABG Hemoglobin VBG pH Oxyhemoglobin Sodium Potassium Chloride Carbon Dioxide BUN Creatinine 0.7 L Glucose 223 H POC Glucose 264 H Lactic Acid Calcium AST Alkaline Phosphatase CK-MB (CK-2) CK-MB (CK-2) Rel Index Albumin TSH Urine WBC (Auto) Salicylates 01/31/17 01/31/17 01/31/17 12:23 17:41 18:55 WBC RBC Hgb Hct MCV MCH RDW Plt Count Lymph % (Auto) [place] % (Auto) Eos % (Auto) Seg Neutrophils % Seg Neuts % (Manual) Lymphocytes % (Manual) Seg Neutrophils # Seg Neutrophils # Man Lymphocytes # (Manual) APTT POC ABG pH ABG pH POC ABG pCO2 32.8 L POC ABG pO2 ABG pO2 ABG HCO3 ABG Base Excess ABG Hemoglobin VBG pH Oxyhemoglobin Sodium Potassium Chloride Carbon Dioxide BUN Creatinine Glucose POC Glucose 252 H 208 H Lactic Acid Calcium AST Alkaline Phosphatase CK-MB (CK-2) CK-MB (CK-2) Rel Index Albumin TSH Urine WBC (Auto) Salicylates 01/31/17 02/01/17 02/01/17 22:59 03:38 03:38 WBC RBC 2.81 L Hgb 7.4 L Hct 22.1 L MCV 79 L MCH 27 L RDW 17.0 H Plt Count 540 H Lymph % (Auto) [place] % (Auto) Eos % (Auto) Seg Neutrophils % Seg Neuts % (Manual) Lymphocytes % (Manual) Seg Neutrophils # Seg Neutrophils # Man Lymphocytes # (Manual) APTT POC ABG pH ABG pH POC ABG pCO2 POC ABG pO2 ABG pO2 ABG HCO3 ABG Base Excess ABG Hemoglobin VBG pH Oxyhemoglobin Sodium Potassium Chloride Carbon Dioxide 21 L BUN Creatinine 0.7 L Glucose POC Glucose 40 L Lactic Acid Calcium AST Alkaline Phosphatase CK-MB (CK-2) CK-MB (CK-2) Rel Index Albumin TSH Urine WBC (Auto) Salicylates 02/01/17 02/01/17 02/01/17 05:17 12:19 16:44 WBC RBC Hgb Hct MCV MCH RDW Plt Count Lymph % (Auto) [place] % (Auto) Eos % (Auto) Seg Neutrophils % Seg Neuts % (Manual) Lymphocytes % (Manual) Seg Neutrophils # Seg Neutrophils # Man Lymphocytes # (Manual) APTT POC ABG pH ABG pH POC ABG pCO2 POC ABG pO2 ABG pO2 ABG HCO3 ABG Base Excess ABG Hemoglobin VBG pH Oxyhemoglobin Sodium Potassium Chloride Carbon Dioxide BUN Creatinine Glucose POC Glucose 140 H 213 H 172 H Lactic Acid Calcium AST Alkaline Phosphatase CK-MB (CK-2) CK-MB (CK-2) Rel Index Albumin TSH Urine WBC (Auto) Salicylates 02/01/17 02/02/17 02/02/17 23:59 05:14 11:24 WBC RBC Hgb Hct MCV MCH RDW Plt Count Lymph % (Auto) [place] % (Auto) Eos % (Auto) Seg Neutrophils % Seg Neuts % (Manual) Lymphocytes % (Manual) Seg Neutrophils # Seg Neutrophils # Man Lymphocytes # (Manual) APTT POC ABG pH ABG pH POC ABG pCO2 POC ABG pO2 ABG pO2 ABG HCO3 ABG Base Excess ABG Hemoglobin VBG pH Oxyhemoglobin Sodium Potassium Chloride Carbon Dioxide BUN Creatinine Glucose POC Glucose 181 H 194 H 209 H Lactic Acid Calcium AST Alkaline Phosphatase CK-MB (CK-2) CK-MB (CK-2) Rel Index Albumin TSH Urine WBC (Auto) Salicylates 02/02/17 02/02/17 02/02/17 11:46 11:46 17:47 WBC RBC 2.94 L Hgb 7.5 L Hct 23.0 L MCV 78 L MCH 25 L RDW 16.9 H Plt Count 520 H Lymph % (Auto) [place] % (Auto) Eos % (Auto) Seg Neutrophils % Seg Neuts % (Manual) Lymphocytes % (Manual) Seg Neutrophils # Seg Neutrophils # Man Lymphocytes # (Manual) APTT POC ABG pH ABG pH POC ABG pCO2 POC ABG pO2 ABG pO2 ABG HCO3 ABG Base Excess ABG Hemoglobin VBG pH Oxyhemoglobin Sodium Potassium Chloride Carbon Dioxide BUN Creatinine 0.6 L Glucose 189 H POC Glucose 147 H Lactic Acid Calcium 8.1 L AST Alkaline Phosphatase CK-MB (CK-2) CK-MB (CK-2) Rel Index Albumin TSH Urine WBC (Auto) Salicylates 02/02/17 02/03/17 02/03/17 23:32 05:53 11:19 WBC RBC Hgb Hct MCV MCH RDW Plt Count Lymph % (Auto) [place] % (Auto) Eos % (Auto) Seg Neutrophils % Seg Neuts % (Manual) Lymphocytes % (Manual) Seg Neutrophils # Seg Neutrophils # Man Lymphocytes # (Manual) APTT POC ABG pH ABG pH POC ABG pCO2 POC ABG pO2 ABG pO2 ABG HCO3 ABG Base Excess ABG Hemoglobin VBG pH Oxyhemoglobin Sodium Potassium Chloride Carbon Dioxide BUN Creatinine Glucose POC Glucose 176 H 224 H 228 H Lactic Acid Calcium AST Alkaline Phosphatase CK-MB (CK-2) CK-MB (CK-2) Rel Index Albumin TSH Urine WBC (Auto) Salicylates 02/03/17 02/03/17 02/04/17 16:59 23:38 05:45 WBC RBC Hgb Hct MCV MCH RDW Plt Count Lymph % (Auto) [place] % (Auto) Eos % (Auto) Seg Neutrophils % Seg Neuts % (Manual) Lymphocytes % (Manual) Seg Neutrophils # Seg Neutrophils # Man Lymphocytes # (Manual) APTT POC ABG pH ABG pH POC ABG pCO2 POC ABG pO2 ABG pO2 ABG HCO3 ABG Base Excess ABG Hemoglobin VBG pH Oxyhemoglobin Sodium Potassium Chloride Carbon Dioxide BUN Creatinine Glucose POC Glucose 189 H 191 H 251 H Lactic Acid Calcium AST Alkaline Phosphatase CK-MB (CK-2) CK-MB (CK-2) Rel Index Albumin TSH Urine WBC (Auto) Salicylates 02/04/17 02/04/17 02/05/17 11:20 17:20 00:17 WBC RBC Hgb Hct MCV MCH RDW Plt Count Lymph % (Auto) [place] % (Auto) Eos % (Auto) Seg Neutrophils % Seg Neuts % (Manual) Lymphocytes % (Manual) Seg Neutrophils # Seg Neutrophils # Man Lymphocytes # (Manual) APTT POC ABG pH ABG pH POC ABG pCO2 POC ABG pO2 ABG pO2 ABG HCO3 ABG Base Excess ABG Hemoglobin VBG pH Oxyhemoglobin Sodium Potassium Chloride Carbon Dioxide BUN Creatinine Glucose POC Glucose 243 H 163 H 200 H Lactic Acid Calcium AST Alkaline Phosphatase CK-MB (CK-2) CK-MB (CK-2) Rel Index Albumin TSH Urine WBC (Auto) Salicylates 02/05/17 02/05/17 02/05/17 05:38 12:38 16:29 WBC RBC Hgb Hct MCV MCH RDW Plt Count Lymph % (Auto) [place] % (Auto) Eos % (Auto) Seg Neutrophils % Seg Neuts % (Manual) Lymphocytes % (Manual) Seg Neutrophils # Seg Neutrophils # Man Lymphocytes # (Manual) APTT POC ABG pH ABG pH POC ABG pCO2 POC ABG pO2 ABG pO2 ABG HCO3 ABG Base Excess ABG Hemoglobin VBG pH Oxyhemoglobin Sodium Potassium Chloride Carbon Dioxide BUN Creatinine Glucose POC Glucose 248 H 241 H 257 H Lactic Acid Calcium AST Alkaline Phosphatase CK-MB (CK-2) CK-MB (CK-2) Rel Index Albumin TSH Urine WBC (Auto) Salicylates 02/05/17 02/06/17 02/06/17 23:56 05:30 11:50 WBC RBC Hgb Hct MCV MCH RDW Plt Count Lymph % (Auto) [place] % (Auto) Eos % (Auto) Seg Neutrophils % Seg Neuts % (Manual) Lymphocytes % (Manual) Seg Neutrophils # Seg Neutrophils # Man Lymphocytes # (Manual) APTT POC ABG pH ABG pH POC ABG pCO2 POC ABG pO2 ABG pO2 ABG HCO3 ABG Base Excess ABG Hemoglobin VBG pH Oxyhemoglobin Sodium Potassium Chloride Carbon Dioxide BUN Creatinine Glucose POC Glucose 258 H 120 H 254 H Lactic Acid Calcium AST Alkaline Phosphatase CK-MB (CK-2) CK-MB (CK-2) Rel Index Albumin TSH Urine WBC (Auto) Salicylates 02/06/17 02/06/17 02/07/17 17:11 23:50 05:22 WBC RBC Hgb Hct MCV MCH RDW Plt Count Lymph % (Auto) [place] % (Auto) Eos % (Auto) Seg Neutrophils % Seg Neuts % (Manual) Lymphocytes % (Manual) Seg Neutrophils # Seg Neutrophils # Man Lymphocytes # (Manual) APTT POC ABG pH ABG pH POC ABG pCO2 POC ABG pO2 ABG pO2 ABG HCO3 ABG Base Excess ABG Hemoglobin VBG pH Oxyhemoglobin Sodium Potassium Chloride Carbon Dioxide BUN Creatinine Glucose POC Glucose 149 H 240 H 258 H Lactic Acid Calcium AST Alkaline Phosphatase CK-MB (CK-2) CK-MB (CK-2) Rel Index Albumin TSH Urine WBC (Auto) Salicylates 02/07/17 02/07/17 02/07/17 11:15 18:33 23:59 WBC RBC Hgb Hct MCV MCH RDW Plt Count Lymph % (Auto) [place] % (Auto) Eos % (Auto) Seg Neutrophils % Seg Neuts % (Manual) Lymphocytes % (Manual) Seg Neutrophils # Seg Neutrophils # Man Lymphocytes # (Manual) APTT POC ABG pH ABG pH POC ABG pCO2 POC ABG pO2 ABG pO2 ABG HCO3 ABG Base Excess ABG Hemoglobin VBG pH Oxyhemoglobin Sodium Potassium Chloride Carbon Dioxide BUN Creatinine Glucose POC Glucose 239 H 176 H 186 H Lactic Acid Calcium AST Alkaline Phosphatase CK-MB (CK-2) CK-MB (CK-2) Rel Index Albumin TSH Urine WBC (Auto) Salicylates 02/08/17 02/08/17 02/08/17 06:15 11:55 16:55 WBC RBC Hgb Hct MCV MCH RDW Plt Count Lymph % (Auto) [place] % (Auto) Eos % (Auto) Seg Neutrophils % Seg Neuts % (Manual) Lymphocytes % (Manual) Seg Neutrophils # Seg Neutrophils # Man Lymphocytes # (Manual) APTT POC ABG pH ABG pH POC ABG pCO2 POC ABG pO2 ABG pO2 ABG HCO3 ABG Base Excess ABG Hemoglobin VBG pH Oxyhemoglobin Sodium Potassium Chloride Carbon Dioxide BUN Creatinine Glucose POC Glucose 195 H 129 H 246 H Lactic Acid Calcium AST Alkaline Phosphatase CK-MB (CK-2) CK-MB (CK-2) Rel Index Albumin TSH Urine WBC (Auto) Salicylates 02/08/17 02/09/17 02/09/17 23:51 05:51 07:24 WBC 14.7 H RBC 3.39 L Hgb 8.9 L Hct 26.4 L MCV 78 L MCH 26 L RDW 18.4 H Plt Count 670 H Lymph % (Auto) 11.8 L [place] % (Auto) Eos % (Auto) Seg Neutrophils % 81.2 H Seg Neuts % (Manual) Lymphocytes % (Manual) Seg Neutrophils # 11.9 H Seg Neutrophils # Man Lymphocytes # (Manual) APTT POC ABG pH ABG pH POC ABG pCO2 POC ABG pO2 ABG pO2 ABG HCO3 ABG Base Excess ABG Hemoglobin VBG pH Oxyhemoglobin Sodium Potassium Chloride Carbon Dioxide BUN Creatinine Glucose POC Glucose 262 H 295 H Lactic Acid Calcium AST Alkaline Phosphatase CK-MB (CK-2) CK-MB (CK-2) Rel Index Albumin TSH Urine WBC (Auto) Salicylates 02/09/17 02/09/17 02/09/17 07:24 12:08 18:39 WBC RBC Hgb Hct MCV MCH RDW Plt Count Lymph % (Auto) [place] % (Auto) Eos % (Auto) Seg Neutrophils % Seg Neuts % (Manual) Lymphocytes % (Manual) Seg Neutrophils # Seg Neutrophils # Man Lymphocytes # (Manual) APTT POC ABG pH ABG pH POC ABG pCO2 POC ABG pO2 ABG pO2 ABG HCO3 ABG Base Excess ABG Hemoglobin VBG pH Oxyhemoglobin Sodium Potassium Chloride 95.5 L Carbon Dioxide BUN 52 H Creatinine Glucose 277 H POC Glucose 236 H 151 H Lactic Acid Calcium AST Alkaline Phosphatase CK-MB (CK-2) CK-MB (CK-2) Rel Index Albumin TSH Urine WBC (Auto) Salicylates 02/10/17 02/10/17 02/10/17 00:01 05:44 11:21 WBC RBC Hgb Hct MCV MCH RDW Plt Count Lymph % (Auto) [place] % (Auto) Eos % (Auto) Seg Neutrophils % Seg Neuts % (Manual) Lymphocytes % (Manual) Seg Neutrophils # Seg Neutrophils # Man Lymphocytes # (Manual) APTT POC ABG pH ABG pH POC ABG pCO2 POC ABG pO2 ABG pO2 ABG HCO3 ABG Base Excess ABG Hemoglobin VBG pH Oxyhemoglobin Sodium Potassium Chloride Carbon Dioxide BUN Creatinine Glucose POC Glucose 210 H 201 H 233 H Lactic Acid Calcium AST Alkaline Phosphatase CK-MB (CK-2) CK-MB (CK-2) Rel Index Albumin TSH Urine WBC (Auto) Salicylates 02/10/17 02/10/17 02/11/17 17:29 23:56 05:24 WBC RBC Hgb Hct MCV MCH RDW Plt Count Lymph % (Auto) [place] % (Auto) Eos % (Auto) Seg Neutrophils % Seg Neuts % (Manual) Lymphocytes % (Manual) Seg Neutrophils # Seg Neutrophils # Man Lymphocytes # (Manual) APTT POC ABG pH ABG pH POC ABG pCO2 POC ABG pO2 ABG pO2 ABG HCO3 ABG Base Excess ABG Hemoglobin VBG pH Oxyhemoglobin Sodium Potassium Chloride Carbon Dioxide BUN Creatinine Glucose POC Glucose 167 H 191 H 135 H Lactic Acid Calcium AST Alkaline Phosphatase CK-MB (CK-2) CK-MB (CK-2) Rel Index Albumin TSH Urine WBC (Auto) Salicylates 02/11/17 02/11/17 02/11/17 12:25 17:03 23:59 WBC RBC Hgb Hct MCV MCH RDW Plt Count Lymph % (Auto) [place] % (Auto) Eos % (Auto) Seg Neutrophils % Seg Neuts % (Manual) Lymphocytes % (Manual) Seg Neutrophils # Seg Neutrophils # Man Lymphocytes # (Manual) APTT POC ABG pH ABG pH POC ABG pCO2 POC ABG pO2 ABG pO2 ABG HCO3 ABG Base Excess ABG Hemoglobin VBG pH Oxyhemoglobin Sodium Potassium Chloride Carbon Dioxide BUN Creatinine Glucose POC Glucose 275 H 172 H 215 H Lactic Acid Calcium AST Alkaline Phosphatase CK-MB (CK-2) CK-MB (CK-2) Rel Index Albumin TSH Urine WBC (Auto) Salicylates 02/12/17 02/12/17 02/12/17 05:39 11:33 17:55 WBC RBC Hgb Hct MCV MCH RDW Plt Count Lymph % (Auto) [place] % (Auto) Eos % (Auto) Seg Neutrophils % Seg Neuts % (Manual) Lymphocytes % (Manual) Seg Neutrophils # Seg Neutrophils # Man Lymphocytes # (Manual) APTT POC ABG pH ABG pH POC ABG pCO2 POC ABG pO2 ABG pO2 ABG HCO3 ABG Base Excess ABG Hemoglobin VBG pH Oxyhemoglobin Sodium Potassium Chloride Carbon Dioxide BUN Creatinine Glucose POC Glucose 261 H 217 H 172 H Lactic Acid Calcium AST Alkaline Phosphatase CK-MB (CK-2) CK-MB (CK-2) Rel Index Albumin TSH Urine WBC (Auto) Salicylates 02/13/17 02/13/17 02/13/17 00:25 06:46 11:26 WBC RBC Hgb Hct MCV MCH RDW Plt Count Lymph % (Auto) [place] % (Auto) Eos % (Auto) Seg Neutrophils % Seg Neuts % (Manual) Lymphocytes % (Manual) Seg Neutrophils # Seg Neutrophils # Man Lymphocytes # (Manual) APTT POC ABG pH ABG pH POC ABG pCO2 POC ABG pO2 ABG pO2 ABG HCO3 ABG Base Excess ABG Hemoglobin VBG pH Oxyhemoglobin Sodium Potassium Chloride Carbon Dioxide BUN Creatinine Glucose POC Glucose 207 H 219 H 231 H Lactic Acid Calcium AST Alkaline Phosphatase CK-MB (CK-2) CK-MB (CK-2) Rel Index Albumin TSH Urine WBC (Auto) Salicylates 02/13/17 02/13/17 02/14/17 17:12 23:44 05:44 WBC RBC Hgb Hct MCV MCH RDW Plt Count Lymph % (Auto) [place] % (Auto) Eos % (Auto) Seg Neutrophils % Seg Neuts % (Manual) Lymphocytes % (Manual) Seg Neutrophils # Seg Neutrophils # Man Lymphocytes # (Manual) APTT POC ABG pH ABG pH POC ABG pCO2 POC ABG pO2 ABG pO2 ABG HCO3 ABG Base Excess ABG Hemoglobin VBG pH Oxyhemoglobin Sodium Potassium Chloride Carbon Dioxide BUN Creatinine Glucose POC Glucose 190 H 256 H 184 H Lactic Acid Calcium AST Alkaline Phosphatase CK-MB (CK-2) CK-MB (CK-2) Rel Index Albumin TSH Urine WBC (Auto) Salicylates 02/14/17 02/14/17 02/14/17 12:21 17:57 23:18 WBC RBC Hgb Hct MCV MCH RDW Plt Count Lymph % (Auto) [place] % (Auto) Eos % (Auto) Seg Neutrophils % Seg Neuts % (Manual) Lymphocytes % (Manual) Seg Neutrophils # Seg Neutrophils # Man Lymphocytes # (Manual) APTT POC ABG pH ABG pH POC ABG pCO2 POC ABG pO2 ABG pO2 ABG HCO3 ABG Base Excess ABG Hemoglobin VBG pH Oxyhemoglobin Sodium Potassium Chloride Carbon Dioxide BUN Creatinine Glucose POC Glucose 233 H 155 H 165 H Lactic Acid Calcium AST Alkaline Phosphatase CK-MB (CK-2) CK-MB (CK-2) Rel Index Albumin TSH Urine WBC (Auto) Salicylates 02/15/17 02/15/17 02/15/17 05:33 11:45 17:20 WBC RBC Hgb Hct MCV MCH RDW Plt Count Lymph % (Auto) [place] % (Auto) Eos % (Auto) Seg Neutrophils % Seg Neuts % (Manual) Lymphocytes % (Manual) Seg Neutrophils # Seg Neutrophils # Man Lymphocytes # (Manual) APTT POC ABG pH ABG pH POC ABG pCO2 POC ABG pO2 ABG pO2 ABG HCO3 ABG Base Excess ABG Hemoglobin VBG pH Oxyhemoglobin Sodium Potassium Chloride Carbon Dioxide BUN Creatinine Glucose POC Glucose 239 H 130 H 189 H Lactic Acid Calcium AST Alkaline Phosphatase CK-MB (CK-2) CK-MB (CK-2) Rel Index Albumin TSH Urine WBC (Auto) Salicylates 02/16/17 02/16/17 02/16/17 00:14 05:09 12:31 WBC RBC Hgb Hct MCV MCH RDW Plt Count Lymph % (Auto) [place] % (Auto) Eos % (Auto) Seg Neutrophils % Seg Neuts % (Manual) Lymphocytes % (Manual) Seg Neutrophils # Seg Neutrophils # Man Lymphocytes # (Manual) APTT POC ABG pH ABG pH POC ABG pCO2 POC ABG pO2 ABG pO2 ABG HCO3 ABG Base Excess ABG Hemoglobin VBG pH Oxyhemoglobin Sodium Potassium Chloride Carbon Dioxide BUN Creatinine Glucose POC Glucose 197 H 226 H 178 H Lactic Acid Calcium AST Alkaline Phosphatase CK-MB (CK-2) CK-MB (CK-2) Rel Index Albumin TSH Urine WBC (Auto) Salicylates 02/16/17 02/16/17 02/17/17 16:35 23:49 05:37 WBC RBC Hgb Hct MCV MCH RDW Plt Count Lymph % (Auto) [place] % (Auto) Eos % (Auto) Seg Neutrophils % Seg Neuts % (Manual) Lymphocytes % (Manual) Seg Neutrophils # Seg Neutrophils # Man Lymphocytes # (Manual) APTT POC ABG pH ABG pH POC ABG pCO2 POC ABG pO2 ABG pO2 ABG HCO3 ABG Base Excess ABG Hemoglobin VBG pH Oxyhemoglobin Sodium Potassium Chloride Carbon Dioxide BUN Creatinine Glucose POC Glucose 174 H 62 L 153 H Lactic Acid Calcium AST Alkaline Phosphatase CK-MB (CK-2) CK-MB (CK-2) Rel Index Albumin TSH Urine WBC (Auto) Salicylates 02/17/17 02/17/17 02/17/17 11:39 17:02 22:24 WBC RBC Hgb Hct MCV MCH RDW Plt Count Lymph % (Auto) [place] % (Auto) Eos % (Auto) Seg Neutrophils % Seg Neuts % (Manual) Lymphocytes % (Manual) Seg Neutrophils # Seg Neutrophils # Man Lymphocytes # (Manual) APTT POC ABG pH ABG pH POC ABG pCO2 POC ABG pO2 ABG pO2 ABG HCO3 ABG Base Excess ABG Hemoglobin VBG pH Oxyhemoglobin Sodium Potassium Chloride Carbon Dioxide BUN Creatinine Glucose POC Glucose 231 H 112 H 116 H Lactic Acid Calcium AST Alkaline Phosphatase CK-MB (CK-2) CK-MB (CK-2) Rel Index Albumin TSH Urine WBC (Auto) Salicylates 02/18/17 02/19/17 02/19/17 15:34 05:09 07:57 WBC RBC Hgb Hct MCV MCH RDW Plt Count Lymph % (Auto) [place] % (Auto) Eos % (Auto) Seg Neutrophils % Seg Neuts % (Manual) Lymphocytes % (Manual) Seg Neutrophils # Seg Neutrophils # Man Lymphocytes # (Manual) APTT POC ABG pH ABG pH POC ABG pCO2 POC ABG pO2 ABG pO2 ABG HCO3 ABG Base Excess ABG Hemoglobin VBG pH Oxyhemoglobin Sodium Potassium Chloride Carbon Dioxide BUN Creatinine Glucose POC Glucose 215 H 218 H 283 H Lactic Acid Calcium AST Alkaline Phosphatase CK-MB (CK-2) CK-MB (CK-2) Rel Index Albumin TSH Urine WBC (Auto) Salicylates 02/19/17 02/19/17 02/20/17 14:49 22:10 05:10 WBC RBC Hgb Hct MCV MCH RDW Plt Count Lymph % (Auto) [place] % (Auto) Eos % (Auto) Seg Neutrophils % Seg Neuts % (Manual) Lymphocytes % (Manual) Seg Neutrophils # Seg Neutrophils # Man Lymphocytes # (Manual) APTT POC ABG pH ABG pH POC ABG pCO2 POC ABG pO2 ABG pO2 ABG HCO3 ABG Base Excess ABG Hemoglobin VBG pH Oxyhemoglobin Sodium Potassium Chloride Carbon Dioxide BUN Creatinine Glucose POC Glucose 290 H 169 H 209 H Lactic Acid Calcium AST Alkaline Phosphatase CK-MB (CK-2) CK-MB (CK-2) Rel Index Albumin TSH Urine WBC (Auto) Salicylates 02/20/17 02/20/17 02/21/17 15:05 21:52 02:00 WBC RBC Hgb Hct MCV MCH RDW Plt Count Lymph % (Auto) [place] % (Auto) Eos % (Auto) Seg Neutrophils % Seg Neuts % (Manual) Lymphocytes % (Manual) Seg Neutrophils # Seg Neutrophils # Man Lymphocytes # (Manual) APTT POC ABG pH ABG pH POC ABG pCO2 POC ABG pO2 ABG pO2 ABG HCO3 ABG Base Excess ABG Hemoglobin VBG pH Oxyhemoglobin Sodium Potassium Chloride Carbon Dioxide BUN Creatinine Glucose POC Glucose 172 H 209 H 216 H Lactic Acid Calcium AST Alkaline Phosphatase CK-MB (CK-2) CK-MB (CK-2) Rel Index Albumin TSH Urine WBC (Auto) Salicylates 02/21/17 02/21/17 02/21/17 04:54 14:43 17:47 WBC RBC Hgb Hct MCV MCH RDW Plt Count Lymph % (Auto) [place] % (Auto) Eos % (Auto) Seg Neutrophils % Seg Neuts % (Manual) Lymphocytes % (Manual) Seg Neutrophils # Seg Neutrophils # Man Lymphocytes # (Manual) APTT POC ABG pH ABG pH POC ABG pCO2 POC ABG pO2 ABG pO2 ABG HCO3 ABG Base Excess ABG Hemoglobin VBG pH Oxyhemoglobin Sodium Potassium Chloride Carbon Dioxide BUN Creatinine Glucose POC Glucose 227 H 290 H 220 H Lactic Acid Calcium AST Alkaline Phosphatase CK-MB (CK-2) CK-MB (CK-2) Rel Index Albumin TSH Urine WBC (Auto) Salicylates 02/21/17 02/22/17 02/22/17 22:02 04:52 15:25 WBC RBC Hgb Hct MCV MCH RDW Plt Count Lymph % (Auto) [place] % (Auto) Eos % (Auto) Seg Neutrophils % Seg Neuts % (Manual) Lymphocytes % (Manual) Seg Neutrophils # Seg Neutrophils # Man Lymphocytes # (Manual) APTT POC ABG pH ABG pH POC ABG pCO2 POC ABG pO2 ABG pO2 ABG HCO3 ABG Base Excess ABG Hemoglobin VBG pH Oxyhemoglobin Sodium Potassium Chloride Carbon Dioxide BUN Creatinine Glucose POC Glucose 246 H 212 H 236 H Lactic Acid Calcium AST Alkaline Phosphatase CK-MB (CK-2) CK-MB (CK-2) Rel Index Albumin TSH Urine WBC (Auto) Salicylates 02/22/17 02/23/17 02/23/17 21:33 06:04 10:00 WBC RBC Hgb Hct MCV MCH RDW Plt Count Lymph % (Auto) [place] % (Auto) Eos % (Auto) Seg Neutrophils % Seg Neuts % (Manual) Lymphocytes % (Manual) Seg Neutrophils # Seg Neutrophils # Man Lymphocytes # (Manual) APTT POC ABG pH ABG pH POC ABG pCO2 POC ABG pO2 ABG pO2 ABG HCO3 ABG Base Excess ABG Hemoglobin VBG pH Oxyhemoglobin Sodium Potassium Chloride Carbon Dioxide BUN Creatinine Glucose POC Glucose 255 H 208 H 174 H Lactic Acid Calcium AST Alkaline Phosphatase CK-MB (CK-2) CK-MB (CK-2) Rel Index Albumin TSH Urine WBC (Auto) Salicylates 02/23/17 02/23/17 02/23/17 12:52 17:15 21:51 WBC RBC Hgb Hct MCV MCH RDW Plt Count Lymph % (Auto) [place] % (Auto) Eos % (Auto) Seg Neutrophils % Seg Neuts % (Manual) Lymphocytes % (Manual) Seg Neutrophils # Seg Neutrophils # Man Lymphocytes # (Manual) APTT POC ABG pH ABG pH POC ABG pCO2 POC ABG pO2 ABG pO2 ABG HCO3 ABG Base Excess ABG Hemoglobin VBG pH Oxyhemoglobin Sodium Potassium Chloride Carbon Dioxide BUN Creatinine Glucose POC Glucose 203 H 269 H 205 H Lactic Acid Calcium AST Alkaline Phosphatase CK-MB (CK-2) CK-MB (CK-2) Rel Index Albumin TSH Urine WBC (Auto) Salicylates 02/24/17 02/24/17 02/24/17 10:23 17:45 21:24 WBC RBC Hgb Hct MCV MCH RDW Plt Count Lymph % (Auto) [place] % (Auto) Eos % (Auto) Seg Neutrophils % Seg Neuts % (Manual) Lymphocytes % (Manual) Seg Neutrophils # Seg Neutrophils # Man Lymphocytes # (Manual) APTT POC ABG pH ABG pH POC ABG pCO2 POC ABG pO2 ABG pO2 ABG HCO3 ABG Base Excess ABG Hemoglobin VBG pH Oxyhemoglobin Sodium Potassium Chloride Carbon Dioxide BUN Creatinine Glucose POC Glucose 280 H 239 H 254 H Lactic Acid Calcium AST Alkaline Phosphatase CK-MB (CK-2) CK-MB (CK-2) Rel Index Albumin TSH Urine WBC (Auto) Salicylates 02/25/17 02/25/17 02/25/17 02:12 05:17 14:32 WBC RBC Hgb Hct MCV MCH RDW Plt Count Lymph % (Auto) [place] % (Auto) Eos % (Auto) Seg Neutrophils % Seg Neuts % (Manual) Lymphocytes % (Manual) Seg Neutrophils # Seg Neutrophils # Man Lymphocytes # (Manual) APTT POC ABG pH ABG pH POC ABG pCO2 POC ABG pO2 ABG pO2 ABG HCO3 ABG Base Excess ABG Hemoglobin VBG pH Oxyhemoglobin Sodium Potassium Chloride Carbon Dioxide BUN Creatinine Glucose POC Glucose 296 H 332 H 353 H Lactic Acid Calcium AST Alkaline Phosphatase CK-MB (CK-2) CK-MB (CK-2) Rel Index Albumin TSH Urine WBC (Auto) Salicylates 02/25/17 02/26/17 02/26/17 22:14 00:37 05:52 WBC RBC Hgb Hct MCV MCH RDW Plt Count Lymph % (Auto) [place] % (Auto) Eos % (Auto) Seg Neutrophils % Seg Neuts % (Manual) Lymphocytes % (Manual) Seg Neutrophils # Seg Neutrophils # Man Lymphocytes # (Manual) APTT POC ABG pH ABG pH POC ABG pCO2 POC ABG pO2 ABG pO2 ABG HCO3 ABG Base Excess ABG Hemoglobin VBG pH Oxyhemoglobin Sodium Potassium Chloride Carbon Dioxide BUN Creatinine Glucose POC Glucose 201 H 233 H 269 H Lactic Acid Calcium AST Alkaline Phosphatase CK-MB (CK-2) CK-MB (CK-2) Rel Index Albumin TSH Urine WBC (Auto) Salicylates 02/26/17 02/26/17 02/26/17 11:48 13:49 21:26 WBC RBC Hgb Hct MCV MCH RDW Plt Count Lymph % (Auto) [place] % (Auto) Eos % (Auto) Seg Neutrophils % Seg Neuts % (Manual) Lymphocytes % (Manual) Seg Neutrophils # Seg Neutrophils # Man Lymphocytes # (Manual) APTT POC ABG pH ABG pH POC ABG pCO2 POC ABG pO2 ABG pO2 ABG HCO3 ABG Base Excess ABG Hemoglobin VBG pH Oxyhemoglobin Sodium Potassium Chloride Carbon Dioxide BUN Creatinine Glucose POC Glucose 333 H 322 H 244 H Lactic Acid Calcium AST Alkaline Phosphatase CK-MB (CK-2) CK-MB (CK-2) Rel Index Albumin TSH Urine WBC (Auto) Salicylates 02/27/17 02/27/17 02/27/17 05:27 13:51 21:48 WBC RBC Hgb Hct MCV MCH RDW Plt Count Lymph % (Auto) [place] % (Auto) Eos % (Auto) Seg Neutrophils % Seg Neuts % (Manual) Lymphocytes % (Manual) Seg Neutrophils # Seg Neutrophils # Man Lymphocytes # (Manual) APTT POC ABG pH ABG pH POC ABG pCO2 POC ABG pO2 ABG pO2 ABG HCO3 ABG Base Excess ABG Hemoglobin VBG pH Oxyhemoglobin Sodium Potassium Chloride Carbon Dioxide BUN Creatinine Glucose POC Glucose 217 H 239 H 254 H Lactic Acid Calcium AST Alkaline Phosphatase CK-MB (CK-2) CK-MB (CK-2) Rel Index Albumin TSH Urine WBC (Auto) Salicylates 02/28/17 02/28/17 02/28/17 05:38 11:00 19:44 WBC RBC Hgb Hct MCV MCH RDW Plt Count Lymph % (Auto) [place] % (Auto) Eos % (Auto) Seg Neutrophils % Seg Neuts % (Manual) Lymphocytes % (Manual) Seg Neutrophils # Seg Neutrophils # Man Lymphocytes # (Manual) APTT POC ABG pH ABG pH POC ABG pCO2 POC ABG pO2 ABG pO2 ABG HCO3 ABG Base Excess ABG Hemoglobin VBG pH Oxyhemoglobin Sodium Potassium Chloride Carbon Dioxide BUN Creatinine Glucose POC Glucose 325 H 203 H 116 H Lactic Acid Calcium AST Alkaline Phosphatase CK-MB (CK-2) CK-MB (CK-2) Rel Index Albumin TSH Urine WBC (Auto) Salicylates 03/01/17 03/01/17 03/01/17 00:08 05:31 12:17 WBC RBC Hgb Hct MCV MCH RDW Plt Count Lymph % (Auto) [place] % (Auto) Eos % (Auto) Seg Neutrophils % Seg Neuts % (Manual) Lymphocytes % (Manual) Seg Neutrophils # Seg Neutrophils # Man Lymphocytes # (Manual) APTT POC ABG pH ABG pH POC ABG pCO2 POC ABG pO2 ABG pO2 ABG HCO3 ABG Base Excess ABG Hemoglobin VBG pH Oxyhemoglobin Sodium Potassium Chloride Carbon Dioxide BUN Creatinine Glucose POC Glucose 202 H 183 H 184 H Lactic Acid Calcium AST Alkaline Phosphatase CK-MB (CK-2) CK-MB (CK-2) Rel Index Albumin TSH Urine WBC (Auto) Salicylates 03/02/17 03/02/17 03/02/17 00:12 05:58 18:22 WBC RBC Hgb Hct MCV MCH RDW Plt Count Lymph % (Auto) [place] % (Auto) Eos % (Auto) Seg Neutrophils % Seg Neuts % (Manual) Lymphocytes % (Manual) Seg Neutrophils # Seg Neutrophils # Man Lymphocytes # (Manual) APTT POC ABG pH ABG pH POC ABG pCO2 POC ABG pO2 ABG pO2 ABG HCO3 ABG Base Excess ABG Hemoglobin VBG pH Oxyhemoglobin Sodium Potassium Chloride Carbon Dioxide BUN Creatinine Glucose POC Glucose 117 H 176 H 156 H Lactic Acid Calcium AST Alkaline Phosphatase CK-MB (CK-2) CK-MB (CK-2) Rel Index Albumin TSH Urine WBC (Auto) Salicylates 03/02/17 03/03/17 03/03/17 23:51 05:44 11:32 WBC RBC Hgb Hct MCV MCH RDW Plt Count Lymph % (Auto) [place] % (Auto) Eos % (Auto) Seg Neutrophils % Seg Neuts % (Manual) Lymphocytes % (Manual) Seg Neutrophils # Seg Neutrophils # Man Lymphocytes # (Manual) APTT POC ABG pH ABG pH POC ABG pCO2 POC ABG pO2 ABG pO2 ABG HCO3 ABG Base Excess ABG Hemoglobin VBG pH Oxyhemoglobin Sodium Potassium Chloride Carbon Dioxide BUN Creatinine Glucose POC Glucose 211 H 117 H 133 H Lactic Acid Calcium AST Alkaline Phosphatase CK-MB (CK-2) CK-MB (CK-2) Rel Index Albumin TSH Urine WBC (Auto) Salicylates 03/03/17 03/03/17 03/04/17 17:43 23:17 05:30 WBC RBC Hgb Hct MCV MCH RDW Plt Count Lymph % (Auto) [place] % (Auto) Eos % (Auto) Seg Neutrophils % Seg Neuts % (Manual) Lymphocytes % (Manual) Seg Neutrophils # Seg Neutrophils # Man Lymphocytes # (Manual) APTT POC ABG pH ABG pH POC ABG pCO2 POC ABG pO2 ABG pO2 ABG HCO3 ABG Base Excess ABG Hemoglobin VBG pH Oxyhemoglobin Sodium Potassium Chloride Carbon Dioxide BUN Creatinine Glucose POC Glucose 206 H 170 H 126 H Lactic Acid Calcium AST Alkaline Phosphatase CK-MB (CK-2) CK-MB (CK-2) Rel Index Albumin TSH Urine WBC (Auto) Salicylates 03/04/17 03/04/17 03/05/17 12:17 17:27 05:20 WBC RBC Hgb Hct MCV MCH RDW Plt Count Lymph % (Auto) [place] % (Auto) Eos % (Auto) Seg Neutrophils % Seg Neuts % (Manual) Lymphocytes % (Manual) Seg Neutrophils # Seg Neutrophils # Man Lymphocytes # (Manual) APTT POC ABG pH ABG pH POC ABG pCO2 POC ABG pO2 ABG pO2 ABG HCO3 ABG Base Excess ABG Hemoglobin VBG pH Oxyhemoglobin Sodium Potassium Chloride Carbon Dioxide BUN Creatinine Glucose POC Glucose 135 H 121 H 185 H Lactic Acid Calcium AST Alkaline Phosphatase CK-MB (CK-2) CK-MB (CK-2) Rel Index Albumin TSH Urine WBC (Auto) Salicylates 03/05/17 03/06/17 03/06/17 11:50 11:52 17:34 WBC RBC Hgb Hct MCV MCH RDW Plt Count Lymph % (Auto) [place] % (Auto) Eos % (Auto) Seg Neutrophils % Seg Neuts % (Manual) Lymphocytes % (Manual) Seg Neutrophils # Seg Neutrophils # Man Lymphocytes # (Manual) APTT POC ABG pH ABG pH POC ABG pCO2 POC ABG pO2 ABG pO2 ABG HCO3 ABG Base Excess ABG Hemoglobin VBG pH Oxyhemoglobin Sodium Potassium Chloride Carbon Dioxide BUN Creatinine Glucose POC Glucose 116 H 133 H 181 H Lactic Acid Calcium AST Alkaline Phosphatase CK-MB (CK-2) CK-MB (CK-2) Rel Index Albumin TSH Urine WBC (Auto) Salicylates 03/07/17 03/07/17 03/07/17 05:21 11:36 17:49 WBC RBC Hgb Hct MCV MCH RDW Plt Count Lymph % (Auto) [place] % (Auto) Eos % (Auto) Seg Neutrophils % Seg Neuts % (Manual) Lymphocytes % (Manual) Seg Neutrophils # Seg Neutrophils # Man Lymphocytes # (Manual) APTT POC ABG pH ABG pH POC ABG pCO2 POC ABG pO2 ABG pO2 ABG HCO3 ABG Base Excess ABG Hemoglobin VBG pH Oxyhemoglobin Sodium Potassium Chloride Carbon Dioxide BUN Creatinine Glucose POC Glucose 159 H 137 H 158 H Lactic Acid Calcium AST Alkaline Phosphatase CK-MB (CK-2) CK-MB (CK-2) Rel Index Albumin TSH Urine WBC (Auto) Salicylates 03/08/17 03/08/17 03/08/17 05:51 13:58 23:50 WBC RBC Hgb Hct MCV MCH RDW Plt Count Lymph % (Auto) [place] % (Auto) Eos % (Auto) Seg Neutrophils % Seg Neuts % (Manual) Lymphocytes % (Manual) Seg Neutrophils # Seg Neutrophils # Man Lymphocytes # (Manual) APTT POC ABG pH ABG pH POC ABG pCO2 POC ABG pO2 ABG pO2 ABG HCO3 ABG Base Excess ABG Hemoglobin VBG pH Oxyhemoglobin Sodium Potassium Chloride Carbon Dioxide BUN Creatinine Glucose POC Glucose 122 H 182 H 114 H Lactic Acid Calcium AST Alkaline Phosphatase CK-MB (CK-2) CK-MB (CK-2) Rel Index Albumin TSH Urine WBC (Auto) Salicylates 03/09/17 03/09/17 03/09/17 05:21 05:51 05:51 WBC RBC 3.61 L Hgb 9.5 L Hct 28.3 L MCV 79 L MCH 26 L RDW 17.8 H Plt Count Lymph % (Auto) [place] % (Auto) Eos % (Auto) Seg Neutrophils % Seg Neuts % (Manual) Lymphocytes % (Manual) Seg Neutrophils # Seg Neutrophils # Man Lymphocytes # (Manual) APTT POC ABG pH ABG pH POC ABG pCO2 POC ABG pO2 ABG pO2 ABG HCO3 ABG Base Excess ABG Hemoglobin VBG pH Oxyhemoglobin Sodium 134 L Potassium Chloride 95.5 L Carbon Dioxide BUN 33 H Creatinine 0.5 L Glucose 143 H POC Glucose 153 H Lactic Acid Calcium AST Alkaline Phosphatase CK-MB (CK-2) CK-MB (CK-2) Rel Index Albumin TSH Urine WBC (Auto) Salicylates 03/09/17 03/09/17 03/09/17 12:10 18:13 21:00 WBC RBC Hgb Hct MCV MCH RDW Plt Count Lymph % (Auto) [place] % (Auto) Eos % (Auto) Seg Neutrophils % Seg Neuts % (Manual) Lymphocytes % (Manual) Seg Neutrophils # Seg Neutrophils # Man Lymphocytes # (Manual) APTT POC ABG pH ABG pH POC ABG pCO2 POC ABG pO2 ABG pO2 ABG HCO3 ABG Base Excess ABG Hemoglobin VBG pH Oxyhemoglobin Sodium Potassium Chloride Carbon Dioxide BUN Creatinine Glucose POC Glucose 203 H 221 H 198 H Lactic Acid Calcium AST Alkaline Phosphatase CK-MB (CK-2) CK-MB (CK-2) Rel Index Albumin TSH Urine WBC (Auto) Salicylates 03/09/17 03/10/17 03/10/17 23:58 05:09 05:09 WBC RBC Hgb 10.3 L Hct 30.5 L MCV 78 L MCH 26 L RDW 17.9 H Plt Count Lymph % (Auto) [place] % (Auto) 10.0 H Eos % (Auto) 6.0 H Seg Neutrophils % Seg Neuts % (Manual) Lymphocytes % (Manual) Seg Neutrophils # Seg Neutrophils # Man Lymphocytes # (Manual) APTT POC ABG pH ABG pH POC ABG pCO2 POC ABG pO2 ABG pO2 ABG HCO3 ABG Base Excess ABG Hemoglobin VBG pH Oxyhemoglobin Sodium 132 L Potassium Chloride 92.2 L Carbon Dioxide BUN 33 H Creatinine 0.5 L Glucose 50 L POC Glucose 167 H Lactic Acid Calcium AST Alkaline Phosphatase CK-MB (CK-2) CK-MB (CK-2) Rel Index Albumin TSH Urine WBC (Auto) Salicylates 03/10/17 03/10/17 03/10/17 05:33 05:34 11:48 WBC RBC Hgb Hct MCV MCH RDW Plt Count Lymph % (Auto) [place] % (Auto) Eos % (Auto) Seg Neutrophils % Seg Neuts % (Manual) Lymphocytes % (Manual) Seg Neutrophils # Seg Neutrophils # Man Lymphocytes # (Manual) APTT POC ABG pH ABG pH POC ABG pCO2 POC ABG pO2 ABG pO2 ABG HCO3 ABG Base Excess ABG Hemoglobin VBG pH Oxyhemoglobin Sodium Potassium Chloride Carbon Dioxide BUN Creatinine Glucose POC Glucose 52 L 53 L 148 H Lactic Acid Calcium AST Alkaline Phosphatase CK-MB (CK-2) CK-MB (CK-2) Rel Index Albumin TSH Urine WBC (Auto) Salicylates 03/10/17 03/10/17 03/11/17 17:53 23:47 05:18 WBC RBC Hgb Hct MCV MCH RDW Plt Count Lymph % (Auto) [place] % (Auto) Eos % (Auto) Seg Neutrophils % Seg Neuts % (Manual) Lymphocytes % (Manual) Seg Neutrophils # Seg Neutrophils # Man Lymphocytes # (Manual) APTT POC ABG pH ABG pH POC ABG pCO2 POC ABG pO2 ABG pO2 ABG HCO3 ABG Base Excess ABG Hemoglobin VBG pH Oxyhemoglobin Sodium Potassium Chloride Carbon Dioxide BUN Creatinine Glucose POC Glucose 189 H 398 H 126 H Lactic Acid Calcium AST Alkaline Phosphatase CK-MB (CK-2) CK-MB (CK-2) Rel Index Albumin TSH Urine WBC (Auto) Salicylates 03/11/17 03/11/17 03/11/17 11:53 17:30 23:10 WBC RBC Hgb Hct MCV MCH RDW Plt Count Lymph % (Auto) [place] % (Auto) Eos % (Auto) Seg Neutrophils % Seg Neuts % (Manual) Lymphocytes % (Manual) Seg Neutrophils # Seg Neutrophils # Man Lymphocytes # (Manual) APTT POC ABG pH ABG pH POC ABG pCO2 POC ABG pO2 ABG pO2 ABG HCO3 ABG Base Excess ABG Hemoglobin VBG pH Oxyhemoglobin Sodium Potassium Chloride Carbon Dioxide BUN Creatinine Glucose POC Glucose 198 H 142 H 244 H Lactic Acid Calcium AST Alkaline Phosphatase CK-MB (CK-2) CK-MB (CK-2) Rel Index Albumin TSH Urine WBC (Auto) Salicylates 03/12/17 03/12/17 03/12/17 04:36 11:49 17:23 WBC RBC Hgb Hct MCV MCH RDW Plt Count Lymph % (Auto) [place] % (Auto) Eos % (Auto) Seg Neutrophils % Seg Neuts % (Manual) Lymphocytes % (Manual) Seg Neutrophils # Seg Neutrophils # Man Lymphocytes # (Manual) APTT POC ABG pH ABG pH POC ABG pCO2 POC ABG pO2 ABG pO2 ABG HCO3 ABG Base Excess ABG Hemoglobin VBG pH Oxyhemoglobin Sodium Potassium Chloride Carbon Dioxide BUN Creatinine Glucose POC Glucose 205 H 197 H 209 H Lactic Acid Calcium AST Alkaline Phosphatase CK-MB (CK-2) CK-MB (CK-2) Rel Index Albumin TSH Urine WBC (Auto) Salicylates 03/12/17 03/13/17 03/13/17 23:51 05:32 11:43 WBC RBC Hgb Hct MCV MCH RDW Plt Count Lymph % (Auto) [place] % (Auto) Eos % (Auto) Seg Neutrophils % Seg Neuts % (Manual) Lymphocytes % (Manual) Seg Neutrophils # Seg Neutrophils # Man Lymphocytes # (Manual) APTT POC ABG pH ABG pH POC ABG pCO2 POC ABG pO2 ABG pO2 ABG HCO3 ABG Base Excess ABG Hemoglobin VBG pH Oxyhemoglobin Sodium Potassium Chloride Carbon Dioxide BUN Creatinine Glucose POC Glucose 210 H 154 H 164 H Lactic Acid Calcium AST Alkaline Phosphatase CK-MB (CK-2) CK-MB (CK-2) Rel Index Albumin TSH Urine WBC (Auto) Salicylates 03/13/17 03/13/17 03/14/17 17:11 23:26 05:42 WBC RBC Hgb Hct MCV MCH RDW Plt Count Lymph % (Auto) [place] % (Auto) Eos % (Auto) Seg Neutrophils % Seg Neuts % (Manual) Lymphocytes % (Manual) Seg Neutrophils # Seg Neutrophils # Man Lymphocytes # (Manual) APTT POC ABG pH ABG pH POC ABG pCO2 POC ABG pO2 ABG pO2 ABG HCO3 ABG Base Excess ABG Hemoglobin VBG pH Oxyhemoglobin Sodium Potassium Chloride Carbon Dioxide BUN Creatinine Glucose POC Glucose 195 H 240 H 230 H Lactic Acid Calcium AST Alkaline Phosphatase CK-MB (CK-2) CK-MB (CK-2) Rel Index Albumin TSH Urine WBC (Auto) Salicylates 03/14/17 03/14/17 03/14/17 14:04 17:34 23:42 WBC RBC Hgb Hct MCV MCH RDW Plt Count Lymph % (Auto) [place] % (Auto) Eos % (Auto) Seg Neutrophils % Seg Neuts % (Manual) Lymphocytes % (Manual) Seg Neutrophils # Seg Neutrophils # Man Lymphocytes # (Manual) APTT POC ABG pH ABG pH POC ABG pCO2 POC ABG pO2 ABG pO2 ABG HCO3 ABG Base Excess ABG Hemoglobin VBG pH Oxyhemoglobin Sodium Potassium Chloride Carbon Dioxide BUN Creatinine Glucose POC Glucose 227 H 186 H 225 H Lactic Acid Calcium AST Alkaline Phosphatase CK-MB (CK-2) CK-MB (CK-2) Rel Index Albumin TSH Urine WBC (Auto) Salicylates 03/15/17 03/15/17 03/15/17 05:21 17:13 21:37 WBC RBC Hgb Hct MCV MCH RDW Plt Count Lymph % (Auto) [place] % (Auto) Eos % (Auto) Seg Neutrophils % Seg Neuts % (Manual) Lymphocytes % (Manual) Seg Neutrophils # Seg Neutrophils # Man Lymphocytes # (Manual) APTT POC ABG pH ABG pH POC ABG pCO2 POC ABG pO2 ABG pO2 ABG HCO3 ABG Base Excess ABG Hemoglobin VBG pH Oxyhemoglobin Sodium Potassium Chloride Carbon Dioxide BUN Creatinine Glucose POC Glucose 244 H 203 H 216 H Lactic Acid Calcium AST Alkaline Phosphatase CK-MB (CK-2) CK-MB (CK-2) Rel Index Albumin TSH Urine WBC (Auto) Salicylates 03/16/17 03/16/17 03/16/17 05:52 18:07 21:54 WBC RBC Hgb Hct MCV MCH RDW Plt Count Lymph % (Auto) [place] % (Auto) Eos % (Auto) Seg Neutrophils % Seg Neuts % (Manual) Lymphocytes % (Manual) Seg Neutrophils # Seg Neutrophils # Man Lymphocytes # (Manual) APTT POC ABG pH ABG pH POC ABG pCO2 POC ABG pO2 ABG pO2 ABG HCO3 ABG Base Excess ABG Hemoglobin VBG pH Oxyhemoglobin Sodium Potassium Chloride Carbon Dioxide BUN Creatinine Glucose POC Glucose 248 H 254 H 244 H Lactic Acid Calcium AST Alkaline Phosphatase CK-MB (CK-2) CK-MB (CK-2) Rel Index Albumin TSH Urine WBC (Auto) Salicylates 03/17/17 03/17/17 03/17/17 07:07 07:42 07:43 WBC RBC Hgb 9.7 L Hct 29.1 L MCV 78 L MCH 26 L RDW 17.4 H Plt Count Lymph % (Auto) [place] % (Auto) Eos % (Auto) Seg Neutrophils % Seg Neuts % (Manual) Lymphocytes % (Manual) Seg Neutrophils # Seg Neutrophils # Man Lymphocytes # (Manual) APTT POC ABG pH ABG pH POC ABG pCO2 POC ABG pO2 ABG pO2 ABG HCO3 ABG Base Excess ABG Hemoglobin VBG pH Oxyhemoglobin Sodium Potassium Chloride 96.6 L Carbon Dioxide BUN 30 H Creatinine 0.5 L Glucose 251 H POC Glucose 222 H Lactic Acid Calcium AST Alkaline Phosphatase CK-MB (CK-2) CK-MB (CK-2) Rel Index Albumin TSH Urine WBC (Auto) Salicylates 03/17/17 03/17/17 03/18/17 14:08 21:20 14:24 WBC RBC Hgb Hct MCV MCH RDW Plt Count Lymph % (Auto) [place] % (Auto) Eos % (Auto) Seg Neutrophils % Seg Neuts % (Manual) Lymphocytes % (Manual) Seg Neutrophils # Seg Neutrophils # Man Lymphocytes # (Manual) APTT POC ABG pH ABG pH POC ABG pCO2 POC ABG pO2 ABG pO2 ABG HCO3 ABG Base Excess ABG Hemoglobin VBG pH Oxyhemoglobin Sodium Potassium Chloride Carbon Dioxide BUN Creatinine Glucose POC Glucose 281 H 239 H 195 H Lactic Acid Calcium AST Alkaline Phosphatase CK-MB (CK-2) CK-MB (CK-2) Rel Index Albumin TSH Urine WBC (Auto) Salicylates 03/18/17 03/19/17 03/19/17 21:37 04:57 14:23 WBC RBC Hgb Hct MCV MCH RDW Plt Count Lymph % (Auto) [place] % (Auto) Eos % (Auto) Seg Neutrophils % Seg Neuts % (Manual) Lymphocytes % (Manual) Seg Neutrophils # Seg Neutrophils # Man Lymphocytes # (Manual) APTT POC ABG pH ABG pH POC ABG pCO2 POC ABG pO2 ABG pO2 ABG HCO3 ABG Base Excess ABG Hemoglobin VBG pH Oxyhemoglobin Sodium Potassium Chloride Carbon Dioxide BUN Creatinine Glucose POC Glucose 227 H 205 H 277 H Lactic Acid Calcium AST Alkaline Phosphatase CK-MB (CK-2) CK-MB (CK-2) Rel Index Albumin TSH Urine WBC (Auto) Salicylates 03/19/17 03/19/17 03/20/17 20:31 21:47 04:55 WBC RBC Hgb Hct MCV MCH RDW Plt Count Lymph % (Auto) [place] % (Auto) Eos % (Auto) Seg Neutrophils % Seg Neuts % (Manual) Lymphocytes % (Manual) Seg Neutrophils # Seg Neutrophils # Man Lymphocytes # (Manual) APTT POC ABG pH ABG pH POC ABG pCO2 POC ABG pO2 ABG pO2 ABG HCO3 ABG Base Excess ABG Hemoglobin VBG pH Oxyhemoglobin Sodium Potassium Chloride Carbon Dioxide BUN Creatinine Glucose POC Glucose 256 H 270 H 202 H Lactic Acid Calcium AST Alkaline Phosphatase CK-MB (CK-2) CK-MB (CK-2) Rel Index Albumin TSH Urine WBC (Auto) Salicylates 03/20/17 03/20/17 03/21/17 14:09 21:40 05:09 WBC RBC Hgb Hct MCV MCH RDW Plt Count Lymph % (Auto) [place] % (Auto) Eos % (Auto) Seg Neutrophils % Seg Neuts % (Manual) Lymphocytes % (Manual) Seg Neutrophils # Seg Neutrophils # Man Lymphocytes # (Manual) APTT POC ABG pH ABG pH POC ABG pCO2 POC ABG pO2 ABG pO2 ABG HCO3 ABG Base Excess ABG Hemoglobin VBG pH Oxyhemoglobin Sodium Potassium Chloride Carbon Dioxide BUN Creatinine Glucose POC Glucose 200 H 214 H 233 H Lactic Acid Calcium AST Alkaline Phosphatase CK-MB (CK-2) CK-MB (CK-2) Rel Index Albumin TSH Urine WBC (Auto) Salicylates 03/21/17 03/21/17 03/22/17 14:06 21:26 05:43 WBC RBC Hgb Hct MCV MCH RDW Plt Count Lymph % (Auto) [place] % (Auto) Eos % (Auto) Seg Neutrophils % Seg Neuts % (Manual) Lymphocytes % (Manual) Seg Neutrophils # Seg Neutrophils # Man Lymphocytes # (Manual) APTT POC ABG pH ABG pH POC ABG pCO2 POC ABG pO2 ABG pO2 ABG HCO3 ABG Base Excess ABG Hemoglobin VBG pH Oxyhemoglobin Sodium Potassium Chloride Carbon Dioxide BUN Creatinine Glucose POC Glucose 250 H 155 H 251 H Lactic Acid Calcium AST Alkaline Phosphatase CK-MB (CK-2) CK-MB (CK-2) Rel Index Albumin TSH Urine WBC (Auto) Salicylates 03/22/17 03/22/17 03/23/17 13:46 21:16 05:39 WBC RBC Hgb Hct MCV MCH RDW Plt Count Lymph % (Auto) [place] % (Auto) Eos % (Auto) Seg Neutrophils % Seg Neuts % (Manual) Lymphocytes % (Manual) Seg Neutrophils # Seg Neutrophils # Man Lymphocytes # (Manual) APTT POC ABG pH ABG pH POC ABG pCO2 POC ABG pO2 ABG pO2 ABG HCO3 ABG Base Excess ABG Hemoglobin VBG pH Oxyhemoglobin Sodium Potassium Chloride Carbon Dioxide BUN Creatinine Glucose POC Glucose 269 H 197 H 234 H Lactic Acid Calcium AST Alkaline Phosphatase CK-MB (CK-2) CK-MB (CK-2) Rel Index Albumin TSH Urine WBC (Auto) Salicylates
[2017-03-23] MEDS: HEPARIN SUB-Q SCH (10:09)
[2017-03-23] MEDS: PEPCID PO SCH (10:10)
--- NOTE | 2017-03-23 11:08 | Progress Note ---
Assessment and Plan Hypoglycemic brain injury Persistent vegetative state Metabolic encephalopathy Hypoglycemia/hypothermia, resolved Acute respiratory failure mechanical ventilator greater than 96 hours UTI with klebsiella, treated ( Cx + on 01/28), then with ESBL likely colonization hyponatremia, Hypothyroidism IDDM Hypertension low grade Fever, resolved - Cont supportive care and current medication. Monitor vitals, repeat cx on - no growth - increased dose of long acting insulin to 15 unit - Patient is DNR- needs guardianship from the state to give consent for further management, as has no family to give consent. Brief History: 51 YO Male with CKD,HTN, DM presents to ED after found down and unresponsive by his neighbor, who subsequently called EMS. Upon arrival, patient found unresponsive on the floor with a serum glucose of 21, patient has a known history of alcohol abuse and delirium tremens. The patient was administered D5 approximate 500 mls during transport without change in mental status/level of consciousness. Pt seen and evaluated in ED was was found to be unable to protect his airway. Pt intubated and placed on vent support. Pt found to have evidence of hypothyroidism. He was started on Synthroid. He has since been in the ICU. media services coordinator try to locate family, even spoke to the family who he lives with. They themselves were unaware of any family members. After ethics committee meeting on the patient. The decision was made to make him DO NOT RESUSCITATE and to transfer him to hospice. Given his very poor prognosis and poor likelihood of recovery. It was decided that was not his best interest to get trach and PEG. Therefore he'll be transferred to the hospice intubated. Now Awaiting on court ordered /state guardianship. Hospitalist Physical - Physical exam Narrative exam: General: comatose HEENT: Moist mucous membranes, , no lymphadenopathy Neck: supple Cardiac: S1-S2 heard Lungs: mechnical ventilated breath sounds Abdomen: soft , nontender, nondistended, bowel sounds positive Extremities: no edema clubbing or cyanosis Skin: no rash or lesions Neurologic: opens eyes, no response to deep painful stimuli, does not follow commend Subjective Date of service: 03/23/17 Principal diagnosis: Acute respiratory failure,encephalopathy Interval history: patient remains comatose, no movement of extremities afebrile o/n, no clinical change Objective - Constitutional Vitals: Vital Signs - 12hr 03/22/17 03/22/17 03/23/17 23:24 23:40 00:00 Temperature 98.0 F Pulse Rate 68 67 Respiratory 15 Rate Blood Pressure 121/78 121/78 O2 Sat by Pulse 100 100 Oximetry 03/23/17 03/23/17 03/23/17 01:00 04:00 04:02 Temperature 97.8 F Pulse Rate 67 69 Respiratory 16 Rate Blood Pressure 126/81 126/81 O2 Sat by Pulse 100 100 Oximetry 03/23/17 03/23/17 07:42 08:00 Temperature 97 F L Pulse Rate 71 Respiratory Rate Blood Pressure 126/81 O2 Sat by Pulse 100 Oximetry - Labs CBC & Chem 7: 03/17/17 07:43 03/17/17 07:42 Labs: Abnormal lab results 03/22/17 03/22/17 03/22/17 Range/Units 05:43 13:46 21:16 POC Glucose 251 H 269 H 197 H (70-105) 03/23/17 Range/Units 05:39 POC Glucose 234 H (70-105)
[2017-03-24] MEDS: HumuLIN R SUB-Q SCH ×4 (06:00→22:20)
[2017-03-24] MEDS: PEPCID PO SCH ×3 (07:35→22:15)
[2017-03-24] MEDS: HEPARIN SUB-Q SCH ×3 (07:35→22:15)
[2017-03-24] MEDS: SYNTHROID PO SCH (07:35)
--- NOTE | 2017-03-24 09:04 | Progress Note ---
Assessment and Plan Acute respiratory failure,prolonged vent/ETT support Hypoglycemia episode-mild hyperglicemic,improving Metabolic encephalopathy. Prolonged vegetative state ,status unchanged Hypothyroidism; doubt myxedema coma UTI/SIRS. Resolved Recommendations Currently the patient is DO NOT RESUSCITATE. 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 Suction as needed DVT prophylaxis Continue contact isolation complex patient. No family available. Subjective Date of service: 03/24/17 Principal diagnosis: Acute respiratory failure,encephalopathy Interval history: Remains intubated. No change in general in respiratory status. Objective Vital Signs - 12hr 03/23/17 03/23/17 03/23/17 22:00 22:01 23:01 Temperature Pulse Rate 65 66 67 Respiratory 12 18 Rate Blood Pressure 134/82 134/82 O2 Sat by Pulse 100 81 L Oximetry 03/23/17 03/24/17 03/24/17 23:32 00:01 01:01 Temperature 98.5 F Pulse Rate 67 64 Respiratory 12 13 Rate Blood Pressure 167/87 167/87 O2 Sat by Pulse 81 L Oximetry 03/24/17 03/24/17 03/24/17 02:00 02:01 03:01 Temperature Pulse Rate 63 63 70 Respiratory 13 14 Rate Blood Pressure 167/87 167/87 167/87 O2 Sat by Pulse 100 67 L Oximetry 03/24/17 03/24/17 03/24/17 03:09 03:10 04:01 Temperature 97.1 F L Pulse Rate 72 66 Respiratory 14 Rate Blood Pressure 154/79 167/87 O2 Sat by Pulse 100 90 Oximetry 03/24/17 03/24/17 03/24/17 05:01 06:01 07:01 Temperature Pulse Rate 65 63 67 Respiratory 12 12 13 Rate Blood Pressure 167/87 167/87 167/87 O2 Sat by Pulse 64 L Oximetry 03/24/17 08:00 Temperature Pulse Rate 70 Respiratory 12 Rate Blood Pressure 143/90 O2 Sat by Pulse 100 Oximetry Constitutional: no acute distress, other (intubated, on vent support) Eyes: non-icteric ENT: oropharynx moist Neck: supple, no JVD Effort: normal Ascultation: Bilateral: clear, diminished breath sounds Cardiovascular: regular rate and rhythm Gastrointestinal: normoactive bowel sounds, soft, non-tender, non-distended Integumentary: normal Extremities: no cyanosis, no edema, pink and warm Neurologic: pupils equal and round, other (responsive to stimuli by opening his eyes, otherwise no changes, not following any commands. ) Psychiatric: other (unable to obtain) CBC and BMP: 03/17/17 07:43 03/17/17 07:42 ABG, PT/INR, D-dimer: ABG POC ABG pH 7.442 (7.35-7.45) 01/31/17 18:55 ABG pH 7.420 pH Units (7.350-7.450) 01/17/17 04:35 POC ABG pCO2 32.8 (35-45) L 01/31/17 18:55 ABG pCO2 34.5 mm Hg 01/17/17 04:35 POC ABG pO2 82 (80-105) 01/31/17 18:55 ABG pO2 160.3 mm Hg (80.0-90.0) H 01/17/17 04:35 POC ABG HCO3 22.4 01/31/17 18:55 POC ABG Total CO2 23 01/31/17 18:55 POC ABG O2 Sat 97 01/31/17 18:55 ABG O2 Saturation 99.0 % (95.0-99.0) 01/17/17 04:35 PT/INR, D-dimer PT 14.1 Sec. (12.2-14.9) 01/17/17 04:10 INR 1.04 (0.87-1.13) 01/17/17 04:10 Abnormal lab findings: Abnormal Labs 01/09/17 01/09/17 01/09/17 10:16 10:16 10:16 WBC RBC Hgb 9.7 L Hct 28.4 L MCV 76 L MCH 26 L RDW 17.2 H Plt Count 448 H Lymph % (Auto) [place] % (Auto) Eos % (Auto) Seg Neutrophils % 79.5 H Seg Neuts % (Manual) Lymphocytes % (Manual) Seg Neutrophils # Seg Neutrophils # Man Lymphocytes # (Manual) APTT 39.6 H POC ABG pH ABG pH POC ABG pCO2 POC ABG pO2 ABG pO2 ABG HCO3 ABG Base Excess ABG Hemoglobin VBG pH Oxyhemoglobin Sodium 132 L Potassium Chloride 96.7 L Carbon Dioxide 21 L BUN 34 H Creatinine Glucose POC Glucose Lactic Acid Calcium 8.3 L AST Alkaline Phosphatase 151 H CK-MB (CK-2) 7.1 H CK-MB (CK-2) Rel Index 5.2 H Albumin 3.3 L TSH Urine WBC (Auto) Salicylates 01/09/17 01/09/17 01/09/17 10:16 10:16 10:16 WBC RBC Hgb Hct MCV MCH RDW Plt Count Lymph % (Auto) [place] % (Auto) Eos % (Auto) Seg Neutrophils % Seg Neuts % (Manual) Lymphocytes % (Manual) Seg Neutrophils # Seg Neutrophils # Man Lymphocytes # (Manual) APTT POC ABG pH ABG pH POC ABG pCO2 POC ABG pO2 ABG pO2 ABG HCO3 ABG Base Excess ABG Hemoglobin VBG pH 7.284 L Oxyhemoglobin Sodium Potassium Chloride Carbon Dioxide BUN Creatinine Glucose POC Glucose Lactic Acid Calcium AST Alkaline Phosphatase CK-MB (CK-2) CK-MB (CK-2) Rel Index Albumin TSH 52.800 H Urine WBC (Auto) Salicylates < 0.3 L 01/09/17 01/09/17 01/09/17 10:23 11:14 12:49 WBC RBC Hgb Hct MCV MCH RDW Plt Count Lymph % (Auto) [place] % (Auto) Eos % (Auto) Seg Neutrophils % Seg Neuts % (Manual) Lymphocytes % (Manual) Seg Neutrophils # Seg Neutrophils # Man Lymphocytes # (Manual) APTT POC ABG pH ABG pH POC ABG pCO2 POC ABG pO2 643 H ABG pO2 ABG HCO3 ABG Base Excess ABG Hemoglobin VBG pH Oxyhemoglobin Sodium Potassium Chloride Carbon Dioxide BUN Creatinine Glucose POC Glucose < 40 L Lactic Acid Calcium AST Alkaline Phosphatase CK-MB (CK-2) CK-MB (CK-2) Rel Index Albumin TSH Urine WBC (Auto) 61.0 H Salicylates 01/09/17 01/09/17 01/09/17 13:13 14:21 15:09 WBC RBC Hgb Hct MCV MCH RDW Plt Count Lymph % (Auto) [place] % (Auto) Eos % (Auto) Seg Neutrophils % Seg Neuts % (Manual) Lymphocytes % (Manual) Seg Neutrophils # Seg Neutrophils # Man Lymphocytes # (Manual) APTT POC ABG pH ABG pH POC ABG pCO2 POC ABG pO2 ABG pO2 ABG HCO3 ABG Base Excess ABG Hemoglobin VBG pH Oxyhemoglobin Sodium Potassium Chloride Carbon Dioxide BUN Creatinine Glucose POC Glucose 128 H 65 L 120 H Lactic Acid Calcium AST Alkaline Phosphatase CK-MB (CK-2) CK-MB (CK-2) Rel Index Albumin TSH Urine WBC (Auto) Salicylates 01/09/17 01/09/17 01/10/17 16:28 17:14 04:30 WBC 24.1 H RBC 3.38 L Hgb 8.5 L Hct 26.0 L MCV 77 L MCH 25 L RDW 17.9 H Plt Count 474 H Lymph % (Auto) [place] % (Auto) Eos % (Auto) Seg Neutrophils % Seg Neuts % (Manual) 88.0 H Lymphocytes % (Manual) 4.0 L Seg Neutrophils # Seg Neutrophils # Man 21.2 H Lymphocytes # (Manual) 1.0 L APTT POC ABG pH ABG pH POC ABG pCO2 POC ABG pO2 ABG pO2 ABG HCO3 ABG Base Excess ABG Hemoglobin VBG pH Oxyhemoglobin Sodium Potassium Chloride Carbon Dioxide BUN Creatinine Glucose POC Glucose 44 L 112 H Lactic Acid Calcium AST Alkaline Phosphatase CK-MB (CK-2) CK-MB (CK-2) Rel Index Albumin TSH Urine WBC (Auto) Salicylates 01/10/17 01/10/17 01/10/17 04:30 05:41 05:45 WBC RBC Hgb Hct MCV MCH RDW Plt Count Lymph % (Auto) [place] % (Auto) Eos % (Auto) Seg Neutrophils % Seg Neuts % (Manual) Lymphocytes % (Manual) Seg Neutrophils # Seg Neutrophils # Man Lymphocytes # (Manual) APTT POC ABG pH ABG pH POC ABG pCO2 26.6 L POC ABG pO2 207 H ABG pO2 ABG HCO3 ABG Base Excess ABG Hemoglobin VBG pH Oxyhemoglobin Sodium Potassium Chloride Carbon Dioxide 17 L BUN 27 H Creatinine Glucose POC Glucose 68 L Lactic Acid Calcium 7.5 L AST Alkaline Phosphatase CK-MB (CK-2) CK-MB (CK-2) Rel Index Albumin TSH Urine WBC (Auto) Salicylates 01/10/17 01/10/17 01/10/17 07:47 10:50 13:41 WBC RBC Hgb Hct MCV MCH RDW Plt Count Lymph % (Auto) [place] % (Auto) Eos % (Auto) Seg Neutrophils % Seg Neuts % (Manual) Lymphocytes % (Manual) Seg Neutrophils # Seg Neutrophils # Man Lymphocytes # (Manual) APTT POC ABG pH ABG pH POC ABG pCO2 POC ABG pO2 ABG pO2 ABG HCO3 ABG Base Excess ABG Hemoglobin VBG pH Oxyhemoglobin Sodium Potassium Chloride Carbon Dioxide BUN Creatinine Glucose POC Glucose 148 H 165 H 114 H Lactic Acid Calcium AST Alkaline Phosphatase CK-MB (CK-2) CK-MB (CK-2) Rel Index Albumin TSH Urine WBC (Auto) Salicylates 01/10/17 01/10/17 01/10/17 20:20 21:39 23:24 WBC RBC Hgb Hct MCV MCH RDW Plt Count Lymph % (Auto) [place] % (Auto) Eos % (Auto) Seg Neutrophils % Seg Neuts % (Manual) Lymphocytes % (Manual) Seg Neutrophils # Seg Neutrophils # Man Lymphocytes # (Manual) APTT POC ABG pH ABG pH POC ABG pCO2 POC ABG pO2 ABG pO2 ABG HCO3 ABG Base Excess ABG Hemoglobin VBG pH Oxyhemoglobin Sodium Potassium Chloride Carbon Dioxide BUN Creatinine Glucose POC Glucose 150 H 175 H 155 H Lactic Acid Calcium AST Alkaline Phosphatase CK-MB (CK-2) CK-MB (CK-2) Rel Index Albumin TSH Urine WBC (Auto) Salicylates 01/11/17 01/11/17 01/11/17 00:19 04:06 05:20 WBC 15.2 H RBC 3.40 L Hgb 8.9 L Hct 26.3 L MCV 78 L MCH 26 L RDW 18.6 H Plt Count 462 H Lymph % (Auto) 13.2 L [place] % (Auto) Eos % (Auto) Seg Neutrophils % 80.8 H Seg Neuts % (Manual) Lymphocytes % (Manual) Seg Neutrophils # 12.3 H Seg Neutrophils # Man Lymphocytes # (Manual) APTT POC ABG pH 7.463 H ABG pH POC ABG pCO2 26.2 L POC ABG pO2 185 H ABG pO2 ABG HCO3 ABG Base Excess ABG Hemoglobin VBG pH Oxyhemoglobin Sodium Potassium Chloride Carbon Dioxide BUN Creatinine Glucose POC Glucose 163 H Lactic Acid Calcium AST Alkaline Phosphatase CK-MB (CK-2) CK-MB (CK-2) Rel Index Albumin TSH Urine WBC (Auto) Salicylates 01/11/17 01/11/17 01/11/17 05:20 06:21 07:57 WBC RBC Hgb Hct MCV MCH RDW Plt Count Lymph % (Auto) [place] % (Auto) Eos % (Auto) Seg Neutrophils % Seg Neuts % (Manual) Lymphocytes % (Manual) Seg Neutrophils # Seg Neutrophils # Man Lymphocytes # (Manual) APTT POC ABG pH ABG pH POC ABG pCO2 POC ABG pO2 ABG pO2 ABG HCO3 ABG Base Excess ABG Hemoglobin VBG pH Oxyhemoglobin Sodium Potassium 3.4 L Chloride 111.5 H Carbon Dioxide 17 L BUN Creatinine Glucose 147 H POC Glucose 139 H 188 H Lactic Acid Calcium 8.0 L AST Alkaline Phosphatase CK-MB (CK-2) CK-MB (CK-2) Rel Index Albumin TSH Urine WBC (Auto) Salicylates 01/11/17 01/11/17 01/11/17 11:46 16:50 23:15 WBC RBC Hgb Hct MCV MCH RDW Plt Count Lymph % (Auto) [place] % (Auto) Eos % (Auto) Seg Neutrophils % Seg Neuts % (Manual) Lymphocytes % (Manual) Seg Neutrophils # Seg Neutrophils # Man Lymphocytes # (Manual) APTT POC ABG pH ABG pH POC ABG pCO2 POC ABG pO2 ABG pO2 ABG HCO3 ABG Base Excess ABG Hemoglobin VBG pH Oxyhemoglobin Sodium Potassium Chloride Carbon Dioxide BUN Creatinine Glucose POC Glucose 199 H 235 H 155 H Lactic Acid Calcium AST Alkaline Phosphatase CK-MB (CK-2) CK-MB (CK-2) Rel Index Albumin TSH Urine WBC (Auto) Salicylates 01/12/17 01/12/17 01/12/17 05:02 06:56 14:50 WBC RBC Hgb Hct MCV MCH RDW Plt Count Lymph % (Auto) [place] % (Auto) Eos % (Auto) Seg Neutrophils % Seg Neuts % (Manual) Lymphocytes % (Manual) Seg Neutrophils # Seg Neutrophils # Man Lymphocytes # (Manual) APTT POC ABG pH ABG pH POC ABG pCO2 28.0 L POC ABG pO2 178 H ABG pO2 ABG HCO3 ABG Base Excess ABG Hemoglobin VBG pH Oxyhemoglobin Sodium Potassium Chloride Carbon Dioxide BUN Creatinine Glucose POC Glucose 119 H 164 H Lactic Acid Calcium AST Alkaline Phosphatase CK-MB (CK-2) CK-MB (CK-2) Rel Index Albumin TSH Urine WBC (Auto) Salicylates 01/13/17 01/13/17 01/13/17 03:37 03:37 04:26 WBC RBC 3.61 L Hgb 9.3 L Hct 28.0 L MCV 78 L MCH 26 L RDW 18.2 H Plt Count Lymph % (Auto) [place] % (Auto) Eos % (Auto) Seg Neutrophils % Seg Neuts % (Manual) Lymphocytes % (Manual) Seg Neutrophils # Seg Neutrophils # Man Lymphocytes # (Manual) APTT POC ABG pH 7.485 H ABG pH POC ABG pCO2 25.4 L POC ABG pO2 73 L ABG pO2 ABG HCO3 ABG Base Excess ABG Hemoglobin VBG pH Oxyhemoglobin Sodium Potassium Chloride 112.4 H Carbon Dioxide 19 L BUN Creatinine Glucose 118 H POC Glucose Lactic Acid Calcium 8.0 L AST Alkaline Phosphatase CK-MB (CK-2) CK-MB (CK-2) Rel Index Albumin TSH Urine WBC (Auto) Salicylates 01/13/17 01/13/17 01/13/17 06:15 11:50 17:31 WBC RBC Hgb Hct MCV MCH RDW Plt Count Lymph % (Auto) [place] % (Auto) Eos % (Auto) Seg Neutrophils % Seg Neuts % (Manual) Lymphocytes % (Manual) Seg Neutrophils # Seg Neutrophils # Man Lymphocytes # (Manual) APTT POC ABG pH ABG pH POC ABG pCO2 POC ABG pO2 ABG pO2 ABG HCO3 ABG Base Excess ABG Hemoglobin VBG pH Oxyhemoglobin Sodium Potassium Chloride Carbon Dioxide BUN Creatinine Glucose POC Glucose 116 H 171 H 203 H Lactic Acid Calcium AST Alkaline Phosphatase CK-MB (CK-2) CK-MB (CK-2) Rel Index Albumin TSH Urine WBC (Auto) Salicylates 01/14/17 01/14/17 01/14/17 00:02 04:50 04:50 WBC RBC 3.32 L Hgb 8.5 L Hct 26.1 L MCV 79 L MCH 26 L RDW 18.2 H Plt Count Lymph % (Auto) [place] % (Auto) 9.0 H Eos % (Auto) Seg Neutrophils % Seg Neuts % (Manual) Lymphocytes % (Manual) Seg Neutrophils # Seg Neutrophils # Man Lymphocytes # (Manual) APTT POC ABG pH ABG pH POC ABG pCO2 POC ABG pO2 ABG pO2 ABG HCO3 ABG Base Excess ABG Hemoglobin VBG pH Oxyhemoglobin Sodium Potassium Chloride 112.5 H Carbon Dioxide BUN Creatinine Glucose 149 H POC Glucose 157 H Lactic Acid Calcium 8.1 L AST Alkaline Phosphatase CK-MB (CK-2) CK-MB (CK-2) Rel Index Albumin TSH Urine WBC (Auto) Salicylates 01/14/17 01/14/17 01/14/17 05:10 11:27 14:07 WBC RBC Hgb Hct MCV MCH RDW Plt Count Lymph % (Auto) [place] % (Auto) Eos % (Auto) Seg Neutrophils % Seg Neuts % (Manual) Lymphocytes % (Manual) Seg Neutrophils # Seg Neutrophils # Man Lymphocytes # (Manual) APTT POC ABG pH ABG pH POC ABG pCO2 POC ABG pO2 ABG pO2 ABG HCO3 ABG Base Excess ABG Hemoglobin VBG pH Oxyhemoglobin Sodium Potassium Chloride Carbon Dioxide BUN Creatinine Glucose POC Glucose 176 H 147 H Lactic Acid Calcium AST Alkaline Phosphatase CK-MB (CK-2) CK-MB (CK-2) Rel Index Albumin TSH Urine WBC (Auto) 53.0 H Salicylates 01/14/17 01/15/17 01/15/17 16:52 00:04 05:26 WBC RBC Hgb Hct MCV MCH RDW Plt Count Lymph % (Auto) [place] % (Auto) Eos % (Auto) Seg Neutrophils % Seg Neuts % (Manual) Lymphocytes % (Manual) Seg Neutrophils # Seg Neutrophils # Man Lymphocytes # (Manual) APTT POC ABG pH ABG pH POC ABG pCO2 POC ABG pO2 ABG pO2 ABG HCO3 ABG Base Excess ABG Hemoglobin VBG pH Oxyhemoglobin Sodium Potassium Chloride Carbon Dioxide BUN Creatinine Glucose POC Glucose 131 H 193 H 215 H Lactic Acid Calcium AST Alkaline Phosphatase CK-MB (CK-2) CK-MB (CK-2) Rel Index Albumin TSH Urine WBC (Auto) Salicylates 01/15/17 01/15/17 01/15/17 11:49 17:47 21:33 WBC RBC Hgb Hct MCV MCH RDW Plt Count Lymph % (Auto) [place] % (Auto) Eos % (Auto) Seg Neutrophils % Seg Neuts % (Manual) Lymphocytes % (Manual) Seg Neutrophils # Seg Neutrophils # Man Lymphocytes # (Manual) APTT POC ABG pH ABG pH POC ABG pCO2 POC ABG pO2 ABG pO2 ABG HCO3 ABG Base Excess ABG Hemoglobin VBG pH Oxyhemoglobin Sodium Potassium Chloride Carbon Dioxide BUN Creatinine Glucose POC Glucose 121 H 211 H 275 H Lactic Acid Calcium AST Alkaline Phosphatase CK-MB (CK-2) CK-MB (CK-2) Rel Index Albumin TSH Urine WBC (Auto) Salicylates 01/16/17 01/16/17 01/16/17 04:30 05:28 13:45 WBC RBC Hgb Hct MCV MCH RDW Plt Count Lymph % (Auto) [place] % (Auto) Eos % (Auto) Seg Neutrophils % Seg Neuts % (Manual) Lymphocytes % (Manual) Seg Neutrophils # Seg Neutrophils # Man Lymphocytes # (Manual) APTT POC ABG pH ABG pH 7.457 H POC ABG pCO2 POC ABG pO2 ABG pO2 55.1 L ABG HCO3 19.4 L ABG Base Excess -4.0 L ABG Hemoglobin 6.8 L VBG pH Oxyhemoglobin 94.9 L Sodium Potassium Chloride Carbon Dioxide BUN Creatinine Glucose POC Glucose 271 H 236 H Lactic Acid Calcium AST Alkaline Phosphatase CK-MB (CK-2) CK-MB (CK-2) Rel Index Albumin TSH Urine WBC (Auto) Salicylates 01/16/17 01/17/17 01/17/17 21:39 04:10 04:10 WBC 4.4 L RBC 2.98 L Hgb 7.7 L Hct 23.3 L MCV 78 L MCH 26 L RDW 18.1 H Plt Count Lymph % (Auto) [place] % (Auto) Eos % (Auto) Seg Neutrophils % Seg Neuts % (Manual) Lymphocytes % (Manual) Seg Neutrophils # Seg Neutrophils # Man Lymphocytes # (Manual) APTT POC ABG pH ABG pH POC ABG pCO2 POC ABG pO2 ABG pO2 ABG HCO3 ABG Base Excess ABG Hemoglobin VBG pH Oxyhemoglobin Sodium Potassium 3.3 L Chloride 108.7 H Carbon Dioxide 20 L BUN 8 L Creatinine Glucose 202 H POC Glucose 258 H Lactic Acid Calcium 7.6 L AST Alkaline Phosphatase CK-MB (CK-2) CK-MB (CK-2) Rel Index Albumin TSH Urine WBC (Auto) Salicylates 01/17/17 01/17/17 01/17/17 04:35 12:23 16:01 WBC RBC Hgb Hct MCV MCH RDW Plt Count Lymph % (Auto) [place] % (Auto) Eos % (Auto) Seg Neutrophils % Seg Neuts % (Manual) Lymphocytes % (Manual) Seg Neutrophils # Seg Neutrophils # Man Lymphocytes # (Manual) APTT POC ABG pH ABG pH POC ABG pCO2 POC ABG pO2 ABG pO2 160.3 H ABG HCO3 ABG Base Excess -2.3 L ABG Hemoglobin 7.9 L VBG pH Oxyhemoglobin Sodium Potassium Chloride Carbon Dioxide BUN Creatinine Glucose POC Glucose 321 H 239 H Lactic Acid Calcium AST Alkaline Phosphatase CK-MB (CK-2) CK-MB (CK-2) Rel Index Albumin TSH Urine WBC (Auto) Salicylates 01/18/17 01/18/17 01/18/17 05:07 12:09 17:54 WBC RBC Hgb Hct MCV MCH RDW Plt Count Lymph % (Auto) [place] % (Auto) Eos % (Auto) Seg Neutrophils % Seg Neuts % (Manual) Lymphocytes % (Manual) Seg Neutrophils # Seg Neutrophils # Man Lymphocytes # (Manual) APTT POC ABG pH ABG pH POC ABG pCO2 POC ABG pO2 ABG pO2 ABG HCO3 ABG Base Excess ABG Hemoglobin VBG pH Oxyhemoglobin Sodium Potassium Chloride Carbon Dioxide BUN Creatinine Glucose POC Glucose 155 H 203 H 132 H Lactic Acid Calcium AST Alkaline Phosphatase CK-MB (CK-2) CK-MB (CK-2) Rel Index Albumin TSH Urine WBC (Auto) Salicylates 01/18/17 01/19/17 01/19/17 23:43 04:28 12:11 WBC RBC Hgb Hct MCV MCH RDW Plt Count Lymph % (Auto) [place] % (Auto) Eos % (Auto) Seg Neutrophils % Seg Neuts % (Manual) Lymphocytes % (Manual) Seg Neutrophils # Seg Neutrophils # Man Lymphocytes # (Manual) APTT POC ABG pH ABG pH POC ABG pCO2 POC ABG pO2 ABG pO2 ABG HCO3 ABG Base Excess ABG Hemoglobin VBG pH Oxyhemoglobin Sodium Potassium Chloride Carbon Dioxide BUN Creatinine Glucose POC Glucose 125 H 182 H 153 H Lactic Acid Calcium AST Alkaline Phosphatase CK-MB (CK-2) CK-MB (CK-2) Rel Index Albumin TSH Urine WBC (Auto) Salicylates 01/19/17 01/20/17 01/20/17 17:23 00:12 05:44 WBC RBC Hgb Hct MCV MCH RDW Plt Count Lymph % (Auto) [place] % (Auto) Eos % (Auto) Seg Neutrophils % Seg Neuts % (Manual) Lymphocytes % (Manual) Seg Neutrophils # Seg Neutrophils # Man Lymphocytes # (Manual) APTT POC ABG pH ABG pH POC ABG pCO2 POC ABG pO2 ABG pO2 ABG HCO3 ABG Base Excess ABG Hemoglobin VBG pH Oxyhemoglobin Sodium Potassium Chloride Carbon Dioxide BUN Creatinine Glucose POC Glucose 66 L 139 H 176 H Lactic Acid Calcium AST Alkaline Phosphatase CK-MB (CK-2) CK-MB (CK-2) Rel Index Albumin TSH Urine WBC (Auto) Salicylates 01/20/17 01/20/17 01/20/17 11:48 17:42 23:43 WBC RBC Hgb Hct MCV MCH RDW Plt Count Lymph % (Auto) [place] % (Auto) Eos % (Auto) Seg Neutrophils % Seg Neuts % (Manual) Lymphocytes % (Manual) Seg Neutrophils # Seg Neutrophils # Man Lymphocytes # (Manual) APTT POC ABG pH ABG pH POC ABG pCO2 POC ABG pO2 ABG pO2 ABG HCO3 ABG Base Excess ABG Hemoglobin VBG pH Oxyhemoglobin Sodium Potassium Chloride Carbon Dioxide BUN Creatinine Glucose POC Glucose 218 H 132 H 178 H Lactic Acid Calcium AST Alkaline Phosphatase CK-MB (CK-2) CK-MB (CK-2) Rel Index Albumin TSH Urine WBC (Auto) Salicylates 01/21/17 01/21/17 01/21/17 05:34 11:17 23:37 WBC RBC Hgb Hct MCV MCH RDW Plt Count Lymph % (Auto) [place] % (Auto) Eos % (Auto) Seg Neutrophils % Seg Neuts % (Manual) Lymphocytes % (Manual) Seg Neutrophils # Seg Neutrophils # Man Lymphocytes # (Manual) APTT POC ABG pH ABG pH POC ABG pCO2 POC ABG pO2 ABG pO2 ABG HCO3 ABG Base Excess ABG Hemoglobin VBG pH Oxyhemoglobin Sodium Potassium Chloride Carbon Dioxide BUN Creatinine Glucose POC Glucose 106 H 213 H 140 H Lactic Acid Calcium AST Alkaline Phosphatase CK-MB (CK-2) CK-MB (CK-2) Rel Index Albumin TSH Urine WBC (Auto) Salicylates 01/22/17 01/22/17 01/22/17 04:00 04:00 04:58 WBC RBC 3.26 L Hgb 8.3 L Hct 25.5 L MCV 78 L MCH 25 L RDW 17.9 H Plt Count Lymph % (Auto) [place] % (Auto) 7.9 H Eos % (Auto) 6.2 H Seg Neutrophils % Seg Neuts % (Manual) Lymphocytes % (Manual) Seg Neutrophils # Seg Neutrophils # Man Lymphocytes # (Manual) APTT POC ABG pH ABG pH POC ABG pCO2 POC ABG pO2 ABG pO2 ABG HCO3 ABG Base Excess ABG Hemoglobin VBG pH Oxyhemoglobin Sodium Potassium Chloride 95.5 L Carbon Dioxide 31 H D BUN Creatinine Glucose 134 H POC Glucose 146 H Lactic Acid Calcium AST 44 H Alkaline Phosphatase 379 H CK-MB (CK-2) CK-MB (CK-2) Rel Index Albumin 2.7 L TSH Urine WBC (Auto) Salicylates 01/22/17 01/22/17 01/22/17 12:12 18:12 23:39 WBC RBC Hgb Hct MCV MCH RDW Plt Count Lymph % (Auto) [place] % (Auto) Eos % (Auto) Seg Neutrophils % Seg Neuts % (Manual) Lymphocytes % (Manual) Seg Neutrophils # Seg Neutrophils # Man Lymphocytes # (Manual) APTT POC ABG pH ABG pH POC ABG pCO2 POC ABG pO2 ABG pO2 ABG HCO3 ABG Base Excess ABG Hemoglobin VBG pH Oxyhemoglobin Sodium Potassium Chloride Carbon Dioxide BUN Creatinine Glucose POC Glucose 255 H 182 H 134 H Lactic Acid Calcium AST Alkaline Phosphatase CK-MB (CK-2) CK-MB (CK-2) Rel Index Albumin TSH Urine WBC (Auto) Salicylates 01/23/17 01/23/17 01/23/17 04:43 12:12 17:36 WBC RBC Hgb Hct MCV MCH RDW Plt Count Lymph % (Auto) [place] % (Auto) Eos % (Auto) Seg Neutrophils % Seg Neuts % (Manual) Lymphocytes % (Manual) Seg Neutrophils # Seg Neutrophils # Man Lymphocytes # (Manual) APTT POC ABG pH ABG pH POC ABG pCO2 POC ABG pO2 ABG pO2 ABG HCO3 ABG Base Excess ABG Hemoglobin VBG pH Oxyhemoglobin Sodium Potassium Chloride Carbon Dioxide BUN Creatinine Glucose POC Glucose 218 H 128 H 156 H Lactic Acid Calcium AST Alkaline Phosphatase CK-MB (CK-2) CK-MB (CK-2) Rel Index Albumin TSH Urine WBC (Auto) Salicylates 01/24/17 01/24/17 01/24/17 00:08 05:16 11:40 WBC RBC Hgb Hct MCV MCH RDW Plt Count Lymph % (Auto) [place] % (Auto) Eos % (Auto) Seg Neutrophils % Seg Neuts % (Manual) Lymphocytes % (Manual) Seg Neutrophils # Seg Neutrophils # Man Lymphocytes # (Manual) APTT POC ABG pH ABG pH POC ABG pCO2 POC ABG pO2 ABG pO2 ABG HCO3 ABG Base Excess ABG Hemoglobin VBG pH Oxyhemoglobin Sodium Potassium Chloride Carbon Dioxide BUN Creatinine Glucose POC Glucose 129 H 169 H 187 H Lactic Acid Calcium AST Alkaline Phosphatase CK-MB (CK-2) CK-MB (CK-2) Rel Index Albumin TSH Urine WBC (Auto) Salicylates 01/24/17 01/24/17 01/25/17 17:43 23:23 04:56 WBC RBC Hgb Hct MCV MCH RDW Plt Count Lymph % (Auto) [place] % (Auto) Eos % (Auto) Seg Neutrophils % Seg Neuts % (Manual) Lymphocytes % (Manual) Seg Neutrophils # Seg Neutrophils # Man Lymphocytes # (Manual) APTT POC ABG pH ABG pH POC ABG pCO2 POC ABG pO2 ABG pO2 ABG HCO3 ABG Base Excess ABG Hemoglobin VBG pH Oxyhemoglobin Sodium Potassium Chloride Carbon Dioxide BUN Creatinine Glucose POC Glucose 215 H 222 H 210 H Lactic Acid Calcium AST Alkaline Phosphatase CK-MB (CK-2) CK-MB (CK-2) Rel Index Albumin TSH Urine WBC (Auto) Salicylates 01/25/17 01/25/17 01/26/17 11:52 17:37 00:02 WBC RBC Hgb Hct MCV MCH RDW Plt Count Lymph % (Auto) [place] % (Auto) Eos % (Auto) Seg Neutrophils % Seg Neuts % (Manual) Lymphocytes % (Manual) Seg Neutrophils # Seg Neutrophils # Man Lymphocytes # (Manual) APTT POC ABG pH ABG pH POC ABG pCO2 POC ABG pO2 ABG pO2 ABG HCO3 ABG Base Excess ABG Hemoglobin VBG pH Oxyhemoglobin Sodium Potassium Chloride Carbon Dioxide BUN Creatinine Glucose POC Glucose 284 H 218 H 192 H Lactic Acid Calcium AST Alkaline Phosphatase CK-MB (CK-2) CK-MB (CK-2) Rel Index Albumin TSH Urine WBC (Auto) Salicylates 01/26/17 01/26/17 01/26/17 05:33 12:17 17:50 WBC RBC Hgb Hct MCV MCH RDW Plt Count Lymph % (Auto) [place] % (Auto) Eos % (Auto) Seg Neutrophils % Seg Neuts % (Manual) Lymphocytes % (Manual) Seg Neutrophils # Seg Neutrophils # Man Lymphocytes # (Manual) APTT POC ABG pH ABG pH POC ABG pCO2 POC ABG pO2 ABG pO2 ABG HCO3 ABG Base Excess ABG Hemoglobin VBG pH Oxyhemoglobin Sodium Potassium Chloride Carbon Dioxide BUN Creatinine Glucose POC Glucose 199 H 227 H 229 H Lactic Acid Calcium AST Alkaline Phosphatase CK-MB (CK-2) CK-MB (CK-2) Rel Index Albumin TSH Urine WBC (Auto) Salicylates 01/26/17 01/27/17 01/27/17 23:57 05:31 11:42 WBC RBC Hgb Hct MCV MCH RDW Plt Count Lymph % (Auto) [place] % (Auto) Eos % (Auto) Seg Neutrophils % Seg Neuts % (Manual) Lymphocytes % (Manual) Seg Neutrophils # Seg Neutrophils # Man Lymphocytes # (Manual) APTT POC ABG pH ABG pH POC ABG pCO2 POC ABG pO2 ABG pO2 ABG HCO3 ABG Base Excess ABG Hemoglobin VBG pH Oxyhemoglobin Sodium Potassium Chloride Carbon Dioxide BUN Creatinine Glucose POC Glucose 186 H 285 H 260 H Lactic Acid Calcium AST Alkaline Phosphatase CK-MB (CK-2) CK-MB (CK-2) Rel Index Albumin TSH Urine WBC (Auto) Salicylates 01/27/17 01/27/17 01/27/17 17:47 23:58 Unknown WBC 12.1 H RBC 3.28 L Hgb 8.5 L Hct 25.5 L MCV 78 L MCH 26 L RDW 16.8 H Plt Count 601 H Lymph % (Auto) [place] % (Auto) Eos % (Auto) Seg Neutrophils % Seg Neuts % (Manual) Lymphocytes % (Manual) Seg Neutrophils # Seg Neutrophils # Man Lymphocytes # (Manual) APTT POC ABG pH ABG pH POC ABG pCO2 POC ABG pO2 ABG pO2 ABG HCO3 ABG Base Excess ABG Hemoglobin VBG pH Oxyhemoglobin Sodium Potassium Chloride Carbon Dioxide BUN Creatinine Glucose POC Glucose 329 H 225 H Lactic Acid Calcium AST Alkaline Phosphatase CK-MB (CK-2) CK-MB (CK-2) Rel Index Albumin TSH Urine WBC (Auto) Salicylates 01/27/17 01/28/17 01/28/17 Unknown 03:44 03:44 WBC RBC 3.14 L Hgb 8.2 L Hct 24.1 L MCV 77 L MCH 26 L RDW 16.9 H Plt Count 567 H Lymph % (Auto) [place] % (Auto) Eos % (Auto) Seg Neutrophils % Seg Neuts % (Manual) Lymphocytes % (Manual) Seg Neutrophils # Seg Neutrophils # Man Lymphocytes # (Manual) APTT POC ABG pH ABG pH POC ABG pCO2 POC ABG pO2 ABG pO2 ABG HCO3 ABG Base Excess ABG Hemoglobin VBG pH Oxyhemoglobin Sodium 128 L Potassium 5.4 H Chloride 87.5 L Carbon Dioxide BUN 44 H 42 H Creatinine Glucose 250 H 128 H POC Glucose Lactic Acid Calcium AST Alkaline Phosphatase CK-MB (CK-2) CK-MB (CK-2) Rel Index Albumin TSH Urine WBC (Auto) Salicylates 01/28/17 01/28/17 01/28/17 11:43 16:47 17:52 WBC RBC Hgb Hct MCV MCH RDW Plt Count Lymph % (Auto) [place] % (Auto) Eos % (Auto) Seg Neutrophils % Seg Neuts % (Manual) Lymphocytes % (Manual) Seg Neutrophils # Seg Neutrophils # Man Lymphocytes # (Manual) APTT POC ABG pH ABG pH POC ABG pCO2 POC ABG pO2 ABG pO2 ABG HCO3 ABG Base Excess ABG Hemoglobin VBG pH Oxyhemoglobin Sodium Potassium Chloride Carbon Dioxide BUN Creatinine Glucose POC Glucose 351 H 249 H Lactic Acid Calcium AST Alkaline Phosphatase CK-MB (CK-2) CK-MB (CK-2) Rel Index Albumin TSH Urine WBC (Auto) > 182.0 H Salicylates 01/29/17 01/29/17 01/29/17 05:25 05:25 09:32 WBC 13.6 H RBC 3.25 L Hgb 8.3 L Hct 25.1 L MCV 77 L MCH 26 L RDW 16.8 H Plt Count 514 H Lymph % (Auto) [place] % (Auto) Eos % (Auto) Seg Neutrophils % Seg Neuts % (Manual) Lymphocytes % (Manual) Seg Neutrophils # Seg Neutrophils # Man Lymphocytes # (Manual) APTT POC ABG pH ABG pH POC ABG pCO2 POC ABG pO2 ABG pO2 ABG HCO3 ABG Base Excess ABG Hemoglobin VBG pH Oxyhemoglobin Sodium Potassium Chloride 97.8 L Carbon Dioxide BUN 34 H Creatinine Glucose 222 H POC Glucose Lactic Acid 2.50 H* Calcium AST Alkaline Phosphatase CK-MB (CK-2) CK-MB (CK-2) Rel Index Albumin TSH Urine WBC (Auto) Salicylates 01/29/17 01/29/17 01/29/17 11:56 18:11 23:55 WBC RBC Hgb Hct MCV MCH RDW Plt Count Lymph % (Auto) [place] % (Auto) Eos % (Auto) Seg Neutrophils % Seg Neuts % (Manual) Lymphocytes % (Manual) Seg Neutrophils # Seg Neutrophils # Man Lymphocytes # (Manual) APTT POC ABG pH ABG pH POC ABG pCO2 POC ABG pO2 ABG pO2 ABG HCO3 ABG Base Excess ABG Hemoglobin VBG pH Oxyhemoglobin Sodium Potassium Chloride Carbon Dioxide BUN Creatinine Glucose POC Glucose 261 H 215 H 176 H Lactic Acid Calcium AST Alkaline Phosphatase CK-MB (CK-2) CK-MB (CK-2) Rel Index Albumin TSH Urine WBC (Auto) Salicylates 01/30/17 01/30/17 01/30/17 05:31 05:31 05:34 WBC 15.2 H RBC 3.09 L Hgb 7.9 L Hct 23.9 L MCV 77 L MCH 26 L RDW 16.9 H Plt Count 569 H Lymph % (Auto) [place] % (Auto) Eos % (Auto) Seg Neutrophils % Seg Neuts % (Manual) Lymphocytes % (Manual) Seg Neutrophils # Seg Neutrophils # Man Lymphocytes # (Manual) APTT POC ABG pH ABG pH POC ABG pCO2 POC ABG pO2 ABG pO2 ABG HCO3 ABG Base Excess ABG Hemoglobin VBG pH Oxyhemoglobin Sodium Potassium Chloride Carbon Dioxide BUN 24 H Creatinine Glucose 235 H POC Glucose 243 H Lactic Acid Calcium AST Alkaline Phosphatase CK-MB (CK-2) CK-MB (CK-2) Rel Index Albumin TSH Urine WBC (Auto) Salicylates 01/30/17 01/30/17 01/30/17 11:38 17:58 23:29 WBC RBC Hgb Hct MCV MCH RDW Plt Count Lymph % (Auto) [place] % (Auto) Eos % (Auto) Seg Neutrophils % Seg Neuts % (Manual) Lymphocytes % (Manual) Seg Neutrophils # Seg Neutrophils # Man Lymphocytes # (Manual) APTT POC ABG pH ABG pH POC ABG pCO2 POC ABG pO2 ABG pO2 ABG HCO3 ABG Base Excess ABG Hemoglobin VBG pH Oxyhemoglobin Sodium Potassium Chloride Carbon Dioxide BUN Creatinine Glucose POC Glucose 298 H 208 H 245 H Lactic Acid Calcium AST Alkaline Phosphatase CK-MB (CK-2) CK-MB (CK-2) Rel Index Albumin TSH Urine WBC (Auto) Salicylates 01/31/17 01/31/17 01/31/17 04:39 04:39 05:57 WBC 11.4 H RBC 3.22 L Hgb 8.2 L Hct 24.9 L MCV 78 L MCH 25 L RDW 17.2 H Plt Count 576 H Lymph % (Auto) [place] % (Auto) Eos % (Auto) Seg Neutrophils % Seg Neuts % (Manual) Lymphocytes % (Manual) Seg Neutrophils # Seg Neutrophils # Man Lymphocytes # (Manual) APTT POC ABG pH ABG pH POC ABG pCO2 POC ABG pO2 ABG pO2 ABG HCO3 ABG Base Excess ABG Hemoglobin VBG pH Oxyhemoglobin Sodium Potassium Chloride Carbon Dioxide BUN Creatinine 0.7 L Glucose 223 H POC Glucose 264 H Lactic Acid Calcium AST Alkaline Phosphatase CK-MB (CK-2) CK-MB (CK-2) Rel Index Albumin TSH Urine WBC (Auto) Salicylates 01/31/17 01/31/17 01/31/17 12:23 17:41 18:55 WBC RBC Hgb Hct MCV MCH RDW Plt Count Lymph % (Auto) [place] % (Auto) Eos % (Auto) Seg Neutrophils % Seg Neuts % (Manual) Lymphocytes % (Manual) Seg Neutrophils # Seg Neutrophils # Man Lymphocytes # (Manual) APTT POC ABG pH ABG pH POC ABG pCO2 32.8 L POC ABG pO2 ABG pO2 ABG HCO3 ABG Base Excess ABG Hemoglobin VBG pH Oxyhemoglobin Sodium Potassium Chloride Carbon Dioxide BUN Creatinine Glucose POC Glucose 252 H 208 H Lactic Acid Calcium AST Alkaline Phosphatase CK-MB (CK-2) CK-MB (CK-2) Rel Index Albumin TSH Urine WBC (Auto) Salicylates 01/31/17 02/01/17 02/01/17 22:59 03:38 03:38 WBC RBC 2.81 L Hgb 7.4 L Hct 22.1 L MCV 79 L MCH 27 L RDW 17.0 H Plt Count 540 H Lymph % (Auto) [place] % (Auto) Eos % (Auto) Seg Neutrophils % Seg Neuts % (Manual) Lymphocytes % (Manual) Seg Neutrophils # Seg Neutrophils # Man Lymphocytes # (Manual) APTT POC ABG pH ABG pH POC ABG pCO2 POC ABG pO2 ABG pO2 ABG HCO3 ABG Base Excess ABG Hemoglobin VBG pH Oxyhemoglobin Sodium Potassium Chloride Carbon Dioxide 21 L BUN Creatinine 0.7 L Glucose POC Glucose 40 L Lactic Acid Calcium AST Alkaline Phosphatase CK-MB (CK-2) CK-MB (CK-2) Rel Index Albumin TSH Urine WBC (Auto) Salicylates 02/01/17 02/01/17 02/01/17 05:17 12:19 16:44 WBC RBC Hgb Hct MCV MCH RDW Plt Count Lymph % (Auto) [place] % (Auto) Eos % (Auto) Seg Neutrophils % Seg Neuts % (Manual) Lymphocytes % (Manual) Seg Neutrophils # Seg Neutrophils # Man Lymphocytes # (Manual) APTT POC ABG pH ABG pH POC ABG pCO2 POC ABG pO2 ABG pO2 ABG HCO3 ABG Base Excess ABG Hemoglobin VBG pH Oxyhemoglobin Sodium Potassium Chloride Carbon Dioxide BUN Creatinine Glucose POC Glucose 140 H 213 H 172 H Lactic Acid Calcium AST Alkaline Phosphatase CK-MB (CK-2) CK-MB (CK-2) Rel Index Albumin TSH Urine WBC (Auto) Salicylates 02/01/17 02/02/17 02/02/17 23:59 05:14 11:24 WBC RBC Hgb Hct MCV MCH RDW Plt Count Lymph % (Auto) [place] % (Auto) Eos % (Auto) Seg Neutrophils % Seg Neuts % (Manual) Lymphocytes % (Manual) Seg Neutrophils # Seg Neutrophils # Man Lymphocytes # (Manual) APTT POC ABG pH ABG pH POC ABG pCO2 POC ABG pO2 ABG pO2 ABG HCO3 ABG Base Excess ABG Hemoglobin VBG pH Oxyhemoglobin Sodium Potassium Chloride Carbon Dioxide BUN Creatinine Glucose POC Glucose 181 H 194 H 209 H Lactic Acid Calcium AST Alkaline Phosphatase CK-MB (CK-2) CK-MB (CK-2) Rel Index Albumin TSH Urine WBC (Auto) Salicylates 02/02/17 02/02/17 02/02/17 11:46 11:46 17:47 WBC RBC 2.94 L Hgb 7.5 L Hct 23.0 L MCV 78 L MCH 25 L RDW 16.9 H Plt Count 520 H Lymph % (Auto) [place] % (Auto) Eos % (Auto) Seg Neutrophils % Seg Neuts % (Manual) Lymphocytes % (Manual) Seg Neutrophils # Seg Neutrophils # Man Lymphocytes # (Manual) APTT POC ABG pH ABG pH POC ABG pCO2 POC ABG pO2 ABG pO2 ABG HCO3 ABG Base Excess ABG Hemoglobin VBG pH Oxyhemoglobin Sodium Potassium Chloride Carbon Dioxide BUN Creatinine 0.6 L Glucose 189 H POC Glucose 147 H Lactic Acid Calcium 8.1 L AST Alkaline Phosphatase CK-MB (CK-2) CK-MB (CK-2) Rel Index Albumin TSH Urine WBC (Auto) Salicylates 02/02/17 02/03/17 02/03/17 23:32 05:53 11:19 WBC RBC Hgb Hct MCV MCH RDW Plt Count Lymph % (Auto) [place] % (Auto) Eos % (Auto) Seg Neutrophils % Seg Neuts % (Manual) Lymphocytes % (Manual) Seg Neutrophils # Seg Neutrophils # Man Lymphocytes # (Manual) APTT POC ABG pH ABG pH POC ABG pCO2 POC ABG pO2 ABG pO2 ABG HCO3 ABG Base Excess ABG Hemoglobin VBG pH Oxyhemoglobin Sodium Potassium Chloride Carbon Dioxide BUN Creatinine Glucose POC Glucose 176 H 224 H 228 H Lactic Acid Calcium AST Alkaline Phosphatase CK-MB (CK-2) CK-MB (CK-2) Rel Index Albumin TSH Urine WBC (Auto) Salicylates 02/03/17 02/03/17 02/04/17 16:59 23:38 05:45 WBC RBC Hgb Hct MCV MCH RDW Plt Count Lymph % (Auto) [place] % (Auto) Eos % (Auto) Seg Neutrophils % Seg Neuts % (Manual) Lymphocytes % (Manual) Seg Neutrophils # Seg Neutrophils # Man Lymphocytes # (Manual) APTT POC ABG pH ABG pH POC ABG pCO2 POC ABG pO2 ABG pO2 ABG HCO3 ABG Base Excess ABG Hemoglobin VBG pH Oxyhemoglobin Sodium Potassium Chloride Carbon Dioxide BUN Creatinine Glucose POC Glucose 189 H 191 H 251 H Lactic Acid Calcium AST Alkaline Phosphatase CK-MB (CK-2) CK-MB (CK-2) Rel Index Albumin TSH Urine WBC (Auto) Salicylates 02/04/17 02/04/17 02/05/17 11:20 17:20 00:17 WBC RBC Hgb Hct MCV MCH RDW Plt Count Lymph % (Auto) [place] % (Auto) Eos % (Auto) Seg Neutrophils % Seg Neuts % (Manual) Lymphocytes % (Manual) Seg Neutrophils # Seg Neutrophils # Man Lymphocytes # (Manual) APTT POC ABG pH ABG pH POC ABG pCO2 POC ABG pO2 ABG pO2 ABG HCO3 ABG Base Excess ABG Hemoglobin VBG pH Oxyhemoglobin Sodium Potassium Chloride Carbon Dioxide BUN Creatinine Glucose POC Glucose 243 H 163 H 200 H Lactic Acid Calcium AST Alkaline Phosphatase CK-MB (CK-2) CK-MB (CK-2) Rel Index Albumin TSH Urine WBC (Auto) Salicylates 02/05/17 02/05/17 02/05/17 05:38 12:38 16:29 WBC RBC Hgb Hct MCV MCH RDW Plt Count Lymph % (Auto) [place] % (Auto) Eos % (Auto) Seg Neutrophils % Seg Neuts % (Manual) Lymphocytes % (Manual) Seg Neutrophils # Seg Neutrophils # Man Lymphocytes # (Manual) APTT POC ABG pH ABG pH POC ABG pCO2 POC ABG pO2 ABG pO2 ABG HCO3 ABG Base Excess ABG Hemoglobin VBG pH Oxyhemoglobin Sodium Potassium Chloride Carbon Dioxide BUN Creatinine Glucose POC Glucose 248 H 241 H 257 H Lactic Acid Calcium AST Alkaline Phosphatase CK-MB (CK-2) CK-MB (CK-2) Rel Index Albumin TSH Urine WBC (Auto) Salicylates 02/05/17 02/06/17 02/06/17 23:56 05:30 11:50 WBC RBC Hgb Hct MCV MCH RDW Plt Count Lymph % (Auto) [place] % (Auto) Eos % (Auto) Seg Neutrophils % Seg Neuts % (Manual) Lymphocytes % (Manual) Seg Neutrophils # Seg Neutrophils # Man Lymphocytes # (Manual) APTT POC ABG pH ABG pH POC ABG pCO2 POC ABG pO2 ABG pO2 ABG HCO3 ABG Base Excess ABG Hemoglobin VBG pH Oxyhemoglobin Sodium Potassium Chloride Carbon Dioxide BUN Creatinine Glucose POC Glucose 258 H 120 H 254 H Lactic Acid Calcium AST Alkaline Phosphatase CK-MB (CK-2) CK-MB (CK-2) Rel Index Albumin TSH Urine WBC (Auto) Salicylates 02/06/17 02/06/17 02/07/17 17:11 23:50 05:22 WBC RBC Hgb Hct MCV MCH RDW Plt Count Lymph % (Auto) [place] % (Auto) Eos % (Auto) Seg Neutrophils % Seg Neuts % (Manual) Lymphocytes % (Manual) Seg Neutrophils # Seg Neutrophils # Man Lymphocytes # (Manual) APTT POC ABG pH ABG pH POC ABG pCO2 POC ABG pO2 ABG pO2 ABG HCO3 ABG Base Excess ABG Hemoglobin VBG pH Oxyhemoglobin Sodium Potassium Chloride Carbon Dioxide BUN Creatinine Glucose POC Glucose 149 H 240 H 258 H Lactic Acid Calcium AST Alkaline Phosphatase CK-MB (CK-2) CK-MB (CK-2) Rel Index Albumin TSH Urine WBC (Auto) Salicylates 02/07/17 02/07/17 02/07/17 11:15 18:33 23:59 WBC RBC Hgb Hct MCV MCH RDW Plt Count Lymph % (Auto) [place] % (Auto) Eos % (Auto) Seg Neutrophils % Seg Neuts % (Manual) Lymphocytes % (Manual) Seg Neutrophils # Seg Neutrophils # Man Lymphocytes # (Manual) APTT POC ABG pH ABG pH POC ABG pCO2 POC ABG pO2 ABG pO2 ABG HCO3 ABG Base Excess ABG Hemoglobin VBG pH Oxyhemoglobin Sodium Potassium Chloride Carbon Dioxide BUN Creatinine Glucose POC Glucose 239 H 176 H 186 H Lactic Acid Calcium AST Alkaline Phosphatase CK-MB (CK-2) CK-MB (CK-2) Rel Index Albumin TSH Urine WBC (Auto) Salicylates 02/08/17 02/08/17 02/08/17 06:15 11:55 16:55 WBC RBC Hgb Hct MCV MCH RDW Plt Count Lymph % (Auto) [place] % (Auto) Eos % (Auto) Seg Neutrophils % Seg Neuts % (Manual) Lymphocytes % (Manual) Seg Neutrophils # Seg Neutrophils # Man Lymphocytes # (Manual) APTT POC ABG pH ABG pH POC ABG pCO2 POC ABG pO2 ABG pO2 ABG HCO3 ABG Base Excess ABG Hemoglobin VBG pH Oxyhemoglobin Sodium Potassium Chloride Carbon Dioxide BUN Creatinine Glucose POC Glucose 195 H 129 H 246 H Lactic Acid Calcium AST Alkaline Phosphatase CK-MB (CK-2) CK-MB (CK-2) Rel Index Albumin TSH Urine WBC (Auto) Salicylates 02/08/17 02/09/17 02/09/17 23:51 05:51 07:24 WBC 14.7 H RBC 3.39 L Hgb 8.9 L Hct 26.4 L MCV 78 L MCH 26 L RDW 18.4 H Plt Count 670 H Lymph % (Auto) 11.8 L [place] % (Auto) Eos % (Auto) Seg Neutrophils % 81.2 H Seg Neuts % (Manual) Lymphocytes % (Manual) Seg Neutrophils # 11.9 H Seg Neutrophils # Man Lymphocytes # (Manual) APTT POC ABG pH ABG pH POC ABG pCO2 POC ABG pO2 ABG pO2 ABG HCO3 ABG Base Excess ABG Hemoglobin VBG pH Oxyhemoglobin Sodium Potassium Chloride Carbon Dioxide BUN Creatinine Glucose POC Glucose 262 H 295 H Lactic Acid Calcium AST Alkaline Phosphatase CK-MB (CK-2) CK-MB (CK-2) Rel Index Albumin TSH Urine WBC (Auto) Salicylates 02/09/17 02/09/17 02/09/17 07:24 12:08 18:39 WBC RBC Hgb Hct MCV MCH RDW Plt Count Lymph % (Auto) [place] % (Auto) Eos % (Auto) Seg Neutrophils % Seg Neuts % (Manual) Lymphocytes % (Manual) Seg Neutrophils # Seg Neutrophils # Man Lymphocytes # (Manual) APTT POC ABG pH ABG pH POC ABG pCO2 POC ABG pO2 ABG pO2 ABG HCO3 ABG Base Excess ABG Hemoglobin VBG pH Oxyhemoglobin Sodium Potassium Chloride 95.5 L Carbon Dioxide BUN 52 H Creatinine Glucose 277 H POC Glucose 236 H 151 H Lactic Acid Calcium AST Alkaline Phosphatase CK-MB (CK-2) CK-MB (CK-2) Rel Index Albumin TSH Urine WBC (Auto) Salicylates 02/10/17 02/10/17 02/10/17 00:01 05:44 11:21 WBC RBC Hgb Hct MCV MCH RDW Plt Count Lymph % (Auto) [place] % (Auto) Eos % (Auto) Seg Neutrophils % Seg Neuts % (Manual) Lymphocytes % (Manual) Seg Neutrophils # Seg Neutrophils # Man Lymphocytes # (Manual) APTT POC ABG pH ABG pH POC ABG pCO2 POC ABG pO2 ABG pO2 ABG HCO3 ABG Base Excess ABG Hemoglobin VBG pH Oxyhemoglobin Sodium Potassium Chloride Carbon Dioxide BUN Creatinine Glucose POC Glucose 210 H 201 H 233 H Lactic Acid Calcium AST Alkaline Phosphatase CK-MB (CK-2) CK-MB (CK-2) Rel Index Albumin TSH Urine WBC (Auto) Salicylates 02/10/17 02/10/17 02/11/17 17:29 23:56 05:24 WBC RBC Hgb Hct MCV MCH RDW Plt Count Lymph % (Auto) [place] % (Auto) Eos % (Auto) Seg Neutrophils % Seg Neuts % (Manual) Lymphocytes % (Manual) Seg Neutrophils # Seg Neutrophils # Man Lymphocytes # (Manual) APTT POC ABG pH ABG pH POC ABG pCO2 POC ABG pO2 ABG pO2 ABG HCO3 ABG Base Excess ABG Hemoglobin VBG pH Oxyhemoglobin Sodium Potassium Chloride Carbon Dioxide BUN Creatinine Glucose POC Glucose 167 H 191 H 135 H Lactic Acid Calcium AST Alkaline Phosphatase CK-MB (CK-2) CK-MB (CK-2) Rel Index Albumin TSH Urine WBC (Auto) Salicylates 02/11/17 02/11/17 02/11/17 12:25 17:03 23:59 WBC RBC Hgb Hct MCV MCH RDW Plt Count Lymph % (Auto) [place] % (Auto) Eos % (Auto) Seg Neutrophils % Seg Neuts % (Manual) Lymphocytes % (Manual) Seg Neutrophils # Seg Neutrophils # Man Lymphocytes # (Manual) APTT POC ABG pH ABG pH POC ABG pCO2 POC ABG pO2 ABG pO2 ABG HCO3 ABG Base Excess ABG Hemoglobin VBG pH Oxyhemoglobin Sodium Potassium Chloride Carbon Dioxide BUN Creatinine Glucose POC Glucose 275 H 172 H 215 H Lactic Acid Calcium AST Alkaline Phosphatase CK-MB (CK-2) CK-MB (CK-2) Rel Index Albumin TSH Urine WBC (Auto) Salicylates 02/12/17 02/12/17 02/12/17 05:39 11:33 17:55 WBC RBC Hgb Hct MCV MCH RDW Plt Count Lymph % (Auto) [place] % (Auto) Eos % (Auto) Seg Neutrophils % Seg Neuts % (Manual) Lymphocytes % (Manual) Seg Neutrophils # Seg Neutrophils # Man Lymphocytes # (Manual) APTT POC ABG pH ABG pH POC ABG pCO2 POC ABG pO2 ABG pO2 ABG HCO3 ABG Base Excess ABG Hemoglobin VBG pH Oxyhemoglobin Sodium Potassium Chloride Carbon Dioxide BUN Creatinine Glucose POC Glucose 261 H 217 H 172 H Lactic Acid Calcium AST Alkaline Phosphatase CK-MB (CK-2) CK-MB (CK-2) Rel Index Albumin TSH Urine WBC (Auto) Salicylates 02/13/17 02/13/17 02/13/17 00:25 06:46 11:26 WBC RBC Hgb Hct MCV MCH RDW Plt Count Lymph % (Auto) [place] % (Auto) Eos % (Auto) Seg Neutrophils % Seg Neuts % (Manual) Lymphocytes % (Manual) Seg Neutrophils # Seg Neutrophils # Man Lymphocytes # (Manual) APTT POC ABG pH ABG pH POC ABG pCO2 POC ABG pO2 ABG pO2 ABG HCO3 ABG Base Excess ABG Hemoglobin VBG pH Oxyhemoglobin Sodium Potassium Chloride Carbon Dioxide BUN Creatinine Glucose POC Glucose 207 H 219 H 231 H Lactic Acid Calcium AST Alkaline Phosphatase CK-MB (CK-2) CK-MB (CK-2) Rel Index Albumin TSH Urine WBC (Auto) Salicylates 02/13/17 02/13/17 02/14/17 17:12 23:44 05:44 WBC RBC Hgb Hct MCV MCH RDW Plt Count Lymph % (Auto) [place] % (Auto) Eos % (Auto) Seg Neutrophils % Seg Neuts % (Manual) Lymphocytes % (Manual) Seg Neutrophils # Seg Neutrophils # Man Lymphocytes # (Manual) APTT POC ABG pH ABG pH POC ABG pCO2 POC ABG pO2 ABG pO2 ABG HCO3 ABG Base Excess ABG Hemoglobin VBG pH Oxyhemoglobin Sodium Potassium Chloride Carbon Dioxide BUN Creatinine Glucose POC Glucose 190 H 256 H 184 H Lactic Acid Calcium AST Alkaline Phosphatase CK-MB (CK-2) CK-MB (CK-2) Rel Index Albumin TSH Urine WBC (Auto) Salicylates 02/14/17 02/14/17 02/14/17 12:21 17:57 23:18 WBC RBC Hgb Hct MCV MCH RDW Plt Count Lymph % (Auto) [place] % (Auto) Eos % (Auto) Seg Neutrophils % Seg Neuts % (Manual) Lymphocytes % (Manual) Seg Neutrophils # Seg Neutrophils # Man Lymphocytes # (Manual) APTT POC ABG pH ABG pH POC ABG pCO2 POC ABG pO2 ABG pO2 ABG HCO3 ABG Base Excess ABG Hemoglobin VBG pH Oxyhemoglobin Sodium Potassium Chloride Carbon Dioxide BUN Creatinine Glucose POC Glucose 233 H 155 H 165 H Lactic Acid Calcium AST Alkaline Phosphatase CK-MB (CK-2) CK-MB (CK-2) Rel Index Albumin TSH Urine WBC (Auto) Salicylates 02/15/17 02/15/17 02/15/17 05:33 11:45 17:20 WBC RBC Hgb Hct MCV MCH RDW Plt Count Lymph % (Auto) [place] % (Auto) Eos % (Auto) Seg Neutrophils % Seg Neuts % (Manual) Lymphocytes % (Manual) Seg Neutrophils # Seg Neutrophils # Man Lymphocytes # (Manual) APTT POC ABG pH ABG pH POC ABG pCO2 POC ABG pO2 ABG pO2 ABG HCO3 ABG Base Excess ABG Hemoglobin VBG pH Oxyhemoglobin Sodium Potassium Chloride Carbon Dioxide BUN Creatinine Glucose POC Glucose 239 H 130 H 189 H Lactic Acid Calcium AST Alkaline Phosphatase CK-MB (CK-2) CK-MB (CK-2) Rel Index Albumin TSH Urine WBC (Auto) Salicylates 02/16/17 02/16/17 02/16/17 00:14 05:09 12:31 WBC RBC Hgb Hct MCV MCH RDW Plt Count Lymph % (Auto) [place] % (Auto) Eos % (Auto) Seg Neutrophils % Seg Neuts % (Manual) Lymphocytes % (Manual) Seg Neutrophils # Seg Neutrophils # Man Lymphocytes # (Manual) APTT POC ABG pH ABG pH POC ABG pCO2 POC ABG pO2 ABG pO2 ABG HCO3 ABG Base Excess ABG Hemoglobin VBG pH Oxyhemoglobin Sodium Potassium Chloride Carbon Dioxide BUN Creatinine Glucose POC Glucose 197 H 226 H 178 H Lactic Acid Calcium AST Alkaline Phosphatase CK-MB (CK-2) CK-MB (CK-2) Rel Index Albumin TSH Urine WBC (Auto) Salicylates 02/16/17 02/16/17 02/17/17 16:35 23:49 05:37 WBC RBC Hgb Hct MCV MCH RDW Plt Count Lymph % (Auto) [place] % (Auto) Eos % (Auto) Seg Neutrophils % Seg Neuts % (Manual) Lymphocytes % (Manual) Seg Neutrophils # Seg Neutrophils # Man Lymphocytes # (Manual) APTT POC ABG pH ABG pH POC ABG pCO2 POC ABG pO2 ABG pO2 ABG HCO3 ABG Base Excess ABG Hemoglobin VBG pH Oxyhemoglobin Sodium Potassium Chloride Carbon Dioxide BUN Creatinine Glucose POC Glucose 174 H 62 L 153 H Lactic Acid Calcium AST Alkaline Phosphatase CK-MB (CK-2) CK-MB (CK-2) Rel Index Albumin TSH Urine WBC (Auto) Salicylates 02/17/17 02/17/17 02/17/17 11:39 17:02 22:24 WBC RBC Hgb Hct MCV MCH RDW Plt Count Lymph % (Auto) [place] % (Auto) Eos % (Auto) Seg Neutrophils % Seg Neuts % (Manual) Lymphocytes % (Manual) Seg Neutrophils # Seg Neutrophils # Man Lymphocytes # (Manual) APTT POC ABG pH ABG pH POC ABG pCO2 POC ABG pO2 ABG pO2 ABG HCO3 ABG Base Excess ABG Hemoglobin VBG pH Oxyhemoglobin Sodium Potassium Chloride Carbon Dioxide BUN Creatinine Glucose POC Glucose 231 H 112 H 116 H Lactic Acid Calcium AST Alkaline Phosphatase CK-MB (CK-2) CK-MB (CK-2) Rel Index Albumin TSH Urine WBC (Auto) Salicylates 02/18/17 02/19/17 02/19/17 15:34 05:09 07:57 WBC RBC Hgb Hct MCV MCH RDW Plt Count Lymph % (Auto) [place] % (Auto) Eos % (Auto) Seg Neutrophils % Seg Neuts % (Manual) Lymphocytes % (Manual) Seg Neutrophils # Seg Neutrophils # Man Lymphocytes # (Manual) APTT POC ABG pH ABG pH POC ABG pCO2 POC ABG pO2 ABG pO2 ABG HCO3 ABG Base Excess ABG Hemoglobin VBG pH Oxyhemoglobin Sodium Potassium Chloride Carbon Dioxide BUN Creatinine Glucose POC Glucose 215 H 218 H 283 H Lactic Acid Calcium AST Alkaline Phosphatase CK-MB (CK-2) CK-MB (CK-2) Rel Index Albumin TSH Urine WBC (Auto) Salicylates 02/19/17 02/19/17 02/20/17 14:49 22:10 05:10 WBC RBC Hgb Hct MCV MCH RDW Plt Count Lymph % (Auto) [place] % (Auto) Eos % (Auto) Seg Neutrophils % Seg Neuts % (Manual) Lymphocytes % (Manual) Seg Neutrophils # Seg Neutrophils # Man Lymphocytes # (Manual) APTT POC ABG pH ABG pH POC ABG pCO2 POC ABG pO2 ABG pO2 ABG HCO3 ABG Base Excess ABG Hemoglobin VBG pH Oxyhemoglobin Sodium Potassium Chloride Carbon Dioxide BUN Creatinine Glucose POC Glucose 290 H 169 H 209 H Lactic Acid Calcium AST Alkaline Phosphatase CK-MB (CK-2) CK-MB (CK-2) Rel Index Albumin TSH Urine WBC (Auto) Salicylates 02/20/17 02/20/17 02/21/17 15:05 21:52 02:00 WBC RBC Hgb Hct MCV MCH RDW Plt Count Lymph % (Auto) [place] % (Auto) Eos % (Auto) Seg Neutrophils % Seg Neuts % (Manual) Lymphocytes % (Manual) Seg Neutrophils # Seg Neutrophils # Man Lymphocytes # (Manual) APTT POC ABG pH ABG pH POC ABG pCO2 POC ABG pO2 ABG pO2 ABG HCO3 ABG Base Excess ABG Hemoglobin VBG pH Oxyhemoglobin Sodium Potassium Chloride Carbon Dioxide BUN Creatinine Glucose POC Glucose 172 H 209 H 216 H Lactic Acid Calcium AST Alkaline Phosphatase CK-MB (CK-2) CK-MB (CK-2) Rel Index Albumin TSH Urine WBC (Auto) Salicylates 02/21/17 02/21/17 02/21/17 04:54 14:43 17:47 WBC RBC Hgb Hct MCV MCH RDW Plt Count Lymph % (Auto) [place] % (Auto) Eos % (Auto) Seg Neutrophils % Seg Neuts % (Manual) Lymphocytes % (Manual) Seg Neutrophils # Seg Neutrophils # Man Lymphocytes # (Manual) APTT POC ABG pH ABG pH POC ABG pCO2 POC ABG pO2 ABG pO2 ABG HCO3 ABG Base Excess ABG Hemoglobin VBG pH Oxyhemoglobin Sodium Potassium Chloride Carbon Dioxide BUN Creatinine Glucose POC Glucose 227 H 290 H 220 H Lactic Acid Calcium AST Alkaline Phosphatase CK-MB (CK-2) CK-MB (CK-2) Rel Index Albumin TSH Urine WBC (Auto) Salicylates 02/21/17 02/22/17 02/22/17 22:02 04:52 15:25 WBC RBC Hgb Hct MCV MCH RDW Plt Count Lymph % (Auto) [place] % (Auto) Eos % (Auto) Seg Neutrophils % Seg Neuts % (Manual) Lymphocytes % (Manual) Seg Neutrophils # Seg Neutrophils # Man Lymphocytes # (Manual) APTT POC ABG pH ABG pH POC ABG pCO2 POC ABG pO2 ABG pO2 ABG HCO3 ABG Base Excess ABG Hemoglobin VBG pH Oxyhemoglobin Sodium Potassium Chloride Carbon Dioxide BUN Creatinine Glucose POC Glucose 246 H 212 H 236 H Lactic Acid Calcium AST Alkaline Phosphatase CK-MB (CK-2) CK-MB (CK-2) Rel Index Albumin TSH Urine WBC (Auto) Salicylates 02/22/17 02/23/17 02/23/17 21:33 06:04 10:00 WBC RBC Hgb Hct MCV MCH RDW Plt Count Lymph % (Auto) [place] % (Auto) Eos % (Auto) Seg Neutrophils % Seg Neuts % (Manual) Lymphocytes % (Manual) Seg Neutrophils # Seg Neutrophils # Man Lymphocytes # (Manual) APTT POC ABG pH ABG pH POC ABG pCO2 POC ABG pO2 ABG pO2 ABG HCO3 ABG Base Excess ABG Hemoglobin VBG pH Oxyhemoglobin Sodium Potassium Chloride Carbon Dioxide BUN Creatinine Glucose POC Glucose 255 H 208 H 174 H Lactic Acid Calcium AST Alkaline Phosphatase CK-MB (CK-2) CK-MB (CK-2) Rel Index Albumin TSH Urine WBC (Auto) Salicylates 02/23/17 02/23/17 02/23/17 12:52 17:15 21:51 WBC RBC Hgb Hct MCV MCH RDW Plt Count Lymph % (Auto) [place] % (Auto) Eos % (Auto) Seg Neutrophils % Seg Neuts % (Manual) Lymphocytes % (Manual) Seg Neutrophils # Seg Neutrophils # Man Lymphocytes # (Manual) APTT POC ABG pH ABG pH POC ABG pCO2 POC ABG pO2 ABG pO2 ABG HCO3 ABG Base Excess ABG Hemoglobin VBG pH Oxyhemoglobin Sodium Potassium Chloride Carbon Dioxide BUN Creatinine Glucose POC Glucose 203 H 269 H 205 H Lactic Acid Calcium AST Alkaline Phosphatase CK-MB (CK-2) CK-MB (CK-2) Rel Index Albumin TSH Urine WBC (Auto) Salicylates 02/24/17 02/24/17 02/24/17 10:23 17:45 21:24 WBC RBC Hgb Hct MCV MCH RDW Plt Count Lymph % (Auto) [place] % (Auto) Eos % (Auto) Seg Neutrophils % Seg Neuts % (Manual) Lymphocytes % (Manual) Seg Neutrophils # Seg Neutrophils # Man Lymphocytes # (Manual) APTT POC ABG pH ABG pH POC ABG pCO2 POC ABG pO2 ABG pO2 ABG HCO3 ABG Base Excess ABG Hemoglobin VBG pH Oxyhemoglobin Sodium Potassium Chloride Carbon Dioxide BUN Creatinine Glucose POC Glucose 280 H 239 H 254 H Lactic Acid Calcium AST Alkaline Phosphatase CK-MB (CK-2) CK-MB (CK-2) Rel Index Albumin TSH Urine WBC (Auto) Salicylates 02/25/17 02/25/17 02/25/17 02:12 05:17 14:32 WBC RBC Hgb Hct MCV MCH RDW Plt Count Lymph % (Auto) [place] % (Auto) Eos % (Auto) Seg Neutrophils % Seg Neuts % (Manual) Lymphocytes % (Manual) Seg Neutrophils # Seg Neutrophils # Man Lymphocytes # (Manual) APTT POC ABG pH ABG pH POC ABG pCO2 POC ABG pO2 ABG pO2 ABG HCO3 ABG Base Excess ABG Hemoglobin VBG pH Oxyhemoglobin Sodium Potassium Chloride Carbon Dioxide BUN Creatinine Glucose POC Glucose 296 H 332 H 353 H Lactic Acid Calcium AST Alkaline Phosphatase CK-MB (CK-2) CK-MB (CK-2) Rel Index Albumin TSH Urine WBC (Auto) Salicylates 02/25/17 02/26/17 02/26/17 22:14 00:37 05:52 WBC RBC Hgb Hct MCV MCH RDW Plt Count Lymph % (Auto) [place] % (Auto) Eos % (Auto) Seg Neutrophils % Seg Neuts % (Manual) Lymphocytes % (Manual) Seg Neutrophils # Seg Neutrophils # Man Lymphocytes # (Manual) APTT POC ABG pH ABG pH POC ABG pCO2 POC ABG pO2 ABG pO2 ABG HCO3 ABG Base Excess ABG Hemoglobin VBG pH Oxyhemoglobin Sodium Potassium Chloride Carbon Dioxide BUN Creatinine Glucose POC Glucose 201 H 233 H 269 H Lactic Acid Calcium AST Alkaline Phosphatase CK-MB (CK-2) CK-MB (CK-2) Rel Index Albumin TSH Urine WBC (Auto) Salicylates 02/26/17 02/26/17 02/26/17 11:48 13:49 21:26 WBC RBC Hgb Hct MCV MCH RDW Plt Count Lymph % (Auto) [place] % (Auto) Eos % (Auto) Seg Neutrophils % Seg Neuts % (Manual) Lymphocytes % (Manual) Seg Neutrophils # Seg Neutrophils # Man Lymphocytes # (Manual) APTT POC ABG pH ABG pH POC ABG pCO2 POC ABG pO2 ABG pO2 ABG HCO3 ABG Base Excess ABG Hemoglobin VBG pH Oxyhemoglobin Sodium Potassium Chloride Carbon Dioxide BUN Creatinine Glucose POC Glucose 333 H 322 H 244 H Lactic Acid Calcium AST Alkaline Phosphatase CK-MB (CK-2) CK-MB (CK-2) Rel Index Albumin TSH Urine WBC (Auto) Salicylates 02/27/17 02/27/17 02/27/17 05:27 13:51 21:48 WBC RBC Hgb Hct MCV MCH RDW Plt Count Lymph % (Auto) [place] % (Auto) Eos % (Auto) Seg Neutrophils % Seg Neuts % (Manual) Lymphocytes % (Manual) Seg Neutrophils # Seg Neutrophils # Man Lymphocytes # (Manual) APTT POC ABG pH ABG pH POC ABG pCO2 POC ABG pO2 ABG pO2 ABG HCO3 ABG Base Excess ABG Hemoglobin VBG pH Oxyhemoglobin Sodium Potassium Chloride Carbon Dioxide BUN Creatinine Glucose POC Glucose 217 H 239 H 254 H Lactic Acid Calcium AST Alkaline Phosphatase CK-MB (CK-2) CK-MB (CK-2) Rel Index Albumin TSH Urine WBC (Auto) Salicylates 02/28/17 02/28/17 02/28/17 05:38 11:00 19:44 WBC RBC Hgb Hct MCV MCH RDW Plt Count Lymph % (Auto) [place] % (Auto) Eos % (Auto) Seg Neutrophils % Seg Neuts % (Manual) Lymphocytes % (Manual) Seg Neutrophils # Seg Neutrophils # Man Lymphocytes # (Manual) APTT POC ABG pH ABG pH POC ABG pCO2 POC ABG pO2 ABG pO2 ABG HCO3 ABG Base Excess ABG Hemoglobin VBG pH Oxyhemoglobin Sodium Potassium Chloride Carbon Dioxide BUN Creatinine Glucose POC Glucose 325 H 203 H 116 H Lactic Acid Calcium AST Alkaline Phosphatase CK-MB (CK-2) CK-MB (CK-2) Rel Index Albumin TSH Urine WBC (Auto) Salicylates 03/01/17 03/01/17 03/01/17 00:08 05:31 12:17 WBC RBC Hgb Hct MCV MCH RDW Plt Count Lymph % (Auto) [place] % (Auto) Eos % (Auto) Seg Neutrophils % Seg Neuts % (Manual) Lymphocytes % (Manual) Seg Neutrophils # Seg Neutrophils # Man Lymphocytes # (Manual) APTT POC ABG pH ABG pH POC ABG pCO2 POC ABG pO2 ABG pO2 ABG HCO3 ABG Base Excess ABG Hemoglobin VBG pH Oxyhemoglobin Sodium Potassium Chloride Carbon Dioxide BUN Creatinine Glucose POC Glucose 202 H 183 H 184 H Lactic Acid Calcium AST Alkaline Phosphatase CK-MB (CK-2) CK-MB (CK-2) Rel Index Albumin TSH Urine WBC (Auto) Salicylates 03/02/17 03/02/17 03/02/17 00:12 05:58 18:22 WBC RBC Hgb Hct MCV MCH RDW Plt Count Lymph % (Auto) [place] % (Auto) Eos % (Auto) Seg Neutrophils % Seg Neuts % (Manual) Lymphocytes % (Manual) Seg Neutrophils # Seg Neutrophils # Man Lymphocytes # (Manual) APTT POC ABG pH ABG pH POC ABG pCO2 POC ABG pO2 ABG pO2 ABG HCO3 ABG Base Excess ABG Hemoglobin VBG pH Oxyhemoglobin Sodium Potassium Chloride Carbon Dioxide BUN Creatinine Glucose POC Glucose 117 H 176 H 156 H Lactic Acid Calcium AST Alkaline Phosphatase CK-MB (CK-2) CK-MB (CK-2) Rel Index Albumin TSH Urine WBC (Auto) Salicylates 03/02/17 03/03/17 03/03/17 23:51 05:44 11:32 WBC RBC Hgb Hct MCV MCH RDW Plt Count Lymph % (Auto) [place] % (Auto) Eos % (Auto) Seg Neutrophils % Seg Neuts % (Manual) Lymphocytes % (Manual) Seg Neutrophils # Seg Neutrophils # Man Lymphocytes # (Manual) APTT POC ABG pH ABG pH POC ABG pCO2 POC ABG pO2 ABG pO2 ABG HCO3 ABG Base Excess ABG Hemoglobin VBG pH Oxyhemoglobin Sodium Potassium Chloride Carbon Dioxide BUN Creatinine Glucose POC Glucose 211 H 117 H 133 H Lactic Acid Calcium AST Alkaline Phosphatase CK-MB (CK-2) CK-MB (CK-2) Rel Index Albumin TSH Urine WBC (Auto) Salicylates 03/03/17 03/03/17 03/04/17 17:43 23:17 05:30 WBC RBC Hgb Hct MCV MCH RDW Plt Count Lymph % (Auto) [place] % (Auto) Eos % (Auto) Seg Neutrophils % Seg Neuts % (Manual) Lymphocytes % (Manual) Seg Neutrophils # Seg Neutrophils # Man Lymphocytes # (Manual) APTT POC ABG pH ABG pH POC ABG pCO2 POC ABG pO2 ABG pO2 ABG HCO3 ABG Base Excess ABG Hemoglobin VBG pH Oxyhemoglobin Sodium Potassium Chloride Carbon Dioxide BUN Creatinine Glucose POC Glucose 206 H 170 H 126 H Lactic Acid Calcium AST Alkaline Phosphatase CK-MB (CK-2) CK-MB (CK-2) Rel Index Albumin TSH Urine WBC (Auto) Salicylates 03/04/17 03/04/17 03/05/17 12:17 17:27 05:20 WBC RBC Hgb Hct MCV MCH RDW Plt Count Lymph % (Auto) [place] % (Auto) Eos % (Auto) Seg Neutrophils % Seg Neuts % (Manual) Lymphocytes % (Manual) Seg Neutrophils # Seg Neutrophils # Man Lymphocytes # (Manual) APTT POC ABG pH ABG pH POC ABG pCO2 POC ABG pO2 ABG pO2 ABG HCO3 ABG Base Excess ABG Hemoglobin VBG pH Oxyhemoglobin Sodium Potassium Chloride Carbon Dioxide BUN Creatinine Glucose POC Glucose 135 H 121 H 185 H Lactic Acid Calcium AST Alkaline Phosphatase CK-MB (CK-2) CK-MB (CK-2) Rel Index Albumin TSH Urine WBC (Auto) Salicylates 03/05/17 03/06/17 03/06/17 11:50 11:52 17:34 WBC RBC Hgb Hct MCV MCH RDW Plt Count Lymph % (Auto) [place] % (Auto) Eos % (Auto) Seg Neutrophils % Seg Neuts % (Manual) Lymphocytes % (Manual) Seg Neutrophils # Seg Neutrophils # Man Lymphocytes # (Manual) APTT POC ABG pH ABG pH POC ABG pCO2 POC ABG pO2 ABG pO2 ABG HCO3 ABG Base Excess ABG Hemoglobin VBG pH Oxyhemoglobin Sodium Potassium Chloride Carbon Dioxide BUN Creatinine Glucose POC Glucose 116 H 133 H 181 H Lactic Acid Calcium AST Alkaline Phosphatase CK-MB (CK-2) CK-MB (CK-2) Rel Index Albumin TSH Urine WBC (Auto) Salicylates 03/07/17 03/07/17 03/07/17 05:21 11:36 17:49 WBC RBC Hgb Hct MCV MCH RDW Plt Count Lymph % (Auto) [place] % (Auto) Eos % (Auto) Seg Neutrophils % Seg Neuts % (Manual) Lymphocytes % (Manual) Seg Neutrophils # Seg Neutrophils # Man Lymphocytes # (Manual) APTT POC ABG pH ABG pH POC ABG pCO2 POC ABG pO2 ABG pO2 ABG HCO3 ABG Base Excess ABG Hemoglobin VBG pH Oxyhemoglobin Sodium Potassium Chloride Carbon Dioxide BUN Creatinine Glucose POC Glucose 159 H 137 H 158 H Lactic Acid Calcium AST Alkaline Phosphatase CK-MB (CK-2) CK-MB (CK-2) Rel Index Albumin TSH Urine WBC (Auto) Salicylates 03/08/17 03/08/17 03/08/17 05:51 13:58 23:50 WBC RBC Hgb Hct MCV MCH RDW Plt Count Lymph % (Auto) [place] % (Auto) Eos % (Auto) Seg Neutrophils % Seg Neuts % (Manual) Lymphocytes % (Manual) Seg Neutrophils # Seg Neutrophils # Man Lymphocytes # (Manual) APTT POC ABG pH ABG pH POC ABG pCO2 POC ABG pO2 ABG pO2 ABG HCO3 ABG Base Excess ABG Hemoglobin VBG pH Oxyhemoglobin Sodium Potassium Chloride Carbon Dioxide BUN Creatinine Glucose POC Glucose 122 H 182 H 114 H Lactic Acid Calcium AST Alkaline Phosphatase CK-MB (CK-2) CK-MB (CK-2) Rel Index Albumin TSH Urine WBC (Auto) Salicylates 03/09/17 03/09/17 03/09/17 05:21 05:51 05:51 WBC RBC 3.61 L Hgb 9.5 L Hct 28.3 L MCV 79 L MCH 26 L RDW 17.8 H Plt Count Lymph % (Auto) [place] % (Auto) Eos % (Auto) Seg Neutrophils % Seg Neuts % (Manual) Lymphocytes % (Manual) Seg Neutrophils # Seg Neutrophils # Man Lymphocytes # (Manual) APTT POC ABG pH ABG pH POC ABG pCO2 POC ABG pO2 ABG pO2 ABG HCO3 ABG Base Excess ABG Hemoglobin VBG pH Oxyhemoglobin Sodium 134 L Potassium Chloride 95.5 L Carbon Dioxide BUN 33 H Creatinine 0.5 L Glucose 143 H POC Glucose 153 H Lactic Acid Calcium AST Alkaline Phosphatase CK-MB (CK-2) CK-MB (CK-2) Rel Index Albumin TSH Urine WBC (Auto) Salicylates 03/09/17 03/09/17 03/09/17 12:10 18:13 21:00 WBC RBC Hgb Hct MCV MCH RDW Plt Count Lymph % (Auto) [place] % (Auto) Eos % (Auto) Seg Neutrophils % Seg Neuts % (Manual) Lymphocytes % (Manual) Seg Neutrophils # Seg Neutrophils # Man Lymphocytes # (Manual) APTT POC ABG pH ABG pH POC ABG pCO2 POC ABG pO2 ABG pO2 ABG HCO3 ABG Base Excess ABG Hemoglobin VBG pH Oxyhemoglobin Sodium Potassium Chloride Carbon Dioxide BUN Creatinine Glucose POC Glucose 203 H 221 H 198 H Lactic Acid Calcium AST Alkaline Phosphatase CK-MB (CK-2) CK-MB (CK-2) Rel Index Albumin TSH Urine WBC (Auto) Salicylates 03/09/17 03/10/17 03/10/17 23:58 05:09 05:09 WBC RBC Hgb 10.3 L Hct 30.5 L MCV 78 L MCH 26 L RDW 17.9 H Plt Count Lymph % (Auto) [place] % (Auto) 10.0 H Eos % (Auto) 6.0 H Seg Neutrophils % Seg Neuts % (Manual) Lymphocytes % (Manual) Seg Neutrophils # Seg Neutrophils # Man Lymphocytes # (Manual) APTT POC ABG pH ABG pH POC ABG pCO2 POC ABG pO2 ABG pO2 ABG HCO3 ABG Base Excess ABG Hemoglobin VBG pH Oxyhemoglobin Sodium 132 L Potassium Chloride 92.2 L Carbon Dioxide BUN 33 H Creatinine 0.5 L Glucose 50 L POC Glucose 167 H Lactic Acid Calcium AST Alkaline Phosphatase CK-MB (CK-2) CK-MB (CK-2) Rel Index Albumin TSH Urine WBC (Auto) Salicylates 03/10/17 03/10/17 03/10/17 05:33 05:34 11:48 WBC RBC Hgb Hct MCV MCH RDW Plt Count Lymph % (Auto) [place] % (Auto) Eos % (Auto) Seg Neutrophils % Seg Neuts % (Manual) Lymphocytes % (Manual) Seg Neutrophils # Seg Neutrophils # Man Lymphocytes # (Manual) APTT POC ABG pH ABG pH POC ABG pCO2 POC ABG pO2 ABG pO2 ABG HCO3 ABG Base Excess ABG Hemoglobin VBG pH Oxyhemoglobin Sodium Potassium Chloride Carbon Dioxide BUN Creatinine Glucose POC Glucose 52 L 53 L 148 H Lactic Acid Calcium AST Alkaline Phosphatase CK-MB (CK-2) CK-MB (CK-2) Rel Index Albumin TSH Urine WBC (Auto) Salicylates 03/10/17 03/10/17 03/11/17 17:53 23:47 05:18 WBC RBC Hgb Hct MCV MCH RDW Plt Count Lymph % (Auto) [place] % (Auto) Eos % (Auto) Seg Neutrophils % Seg Neuts % (Manual) Lymphocytes % (Manual) Seg Neutrophils # Seg Neutrophils # Man Lymphocytes # (Manual) APTT POC ABG pH ABG pH POC ABG pCO2 POC ABG pO2 ABG pO2 ABG HCO3 ABG Base Excess ABG Hemoglobin VBG pH Oxyhemoglobin Sodium Potassium Chloride Carbon Dioxide BUN Creatinine Glucose POC Glucose 189 H 398 H 126 H Lactic Acid Calcium AST Alkaline Phosphatase CK-MB (CK-2) CK-MB (CK-2) Rel Index Albumin TSH Urine WBC (Auto) Salicylates 03/11/17 03/11/17 03/11/17 11:53 17:30 23:10 WBC RBC Hgb Hct MCV MCH RDW Plt Count Lymph % (Auto) [place] % (Auto) Eos % (Auto) Seg Neutrophils % Seg Neuts % (Manual) Lymphocytes % (Manual) Seg Neutrophils # Seg Neutrophils # Man Lymphocytes # (Manual) APTT POC ABG pH ABG pH POC ABG pCO2 POC ABG pO2 ABG pO2 ABG HCO3 ABG Base Excess ABG Hemoglobin VBG pH Oxyhemoglobin Sodium Potassium Chloride Carbon Dioxide BUN Creatinine Glucose POC Glucose 198 H 142 H 244 H Lactic Acid Calcium AST Alkaline Phosphatase CK-MB (CK-2) CK-MB (CK-2) Rel Index Albumin TSH Urine WBC (Auto) Salicylates 03/12/17 03/12/17 03/12/17 04:36 11:49 17:23 WBC RBC Hgb Hct MCV MCH RDW Plt Count Lymph % (Auto) [place] % (Auto) Eos % (Auto) Seg Neutrophils % Seg Neuts % (Manual) Lymphocytes % (Manual) Seg Neutrophils # Seg Neutrophils # Man Lymphocytes # (Manual) APTT POC ABG pH ABG pH POC ABG pCO2 POC ABG pO2 ABG pO2 ABG HCO3 ABG Base Excess ABG Hemoglobin VBG pH Oxyhemoglobin Sodium Potassium Chloride Carbon Dioxide BUN Creatinine Glucose POC Glucose 205 H 197 H 209 H Lactic Acid Calcium AST Alkaline Phosphatase CK-MB (CK-2) CK-MB (CK-2) Rel Index Albumin TSH Urine WBC (Auto) Salicylates 03/12/17 03/13/17 03/13/17 23:51 05:32 11:43 WBC RBC Hgb Hct MCV MCH RDW Plt Count Lymph % (Auto) [place] % (Auto) Eos % (Auto) Seg Neutrophils % Seg Neuts % (Manual) Lymphocytes % (Manual) Seg Neutrophils # Seg Neutrophils # Man Lymphocytes # (Manual) APTT POC ABG pH ABG pH POC ABG pCO2 POC ABG pO2 ABG pO2 ABG HCO3 ABG Base Excess ABG Hemoglobin VBG pH Oxyhemoglobin Sodium Potassium Chloride Carbon Dioxide BUN Creatinine Glucose POC Glucose 210 H 154 H 164 H Lactic Acid Calcium AST Alkaline Phosphatase CK-MB (CK-2) CK-MB (CK-2) Rel Index Albumin TSH Urine WBC (Auto) Salicylates 03/13/17 03/13/17 03/14/17 17:11 23:26 05:42 WBC RBC Hgb Hct MCV MCH RDW Plt Count Lymph % (Auto) [place] % (Auto) Eos % (Auto) Seg Neutrophils % Seg Neuts % (Manual) Lymphocytes % (Manual) Seg Neutrophils # Seg Neutrophils # Man Lymphocytes # (Manual) APTT POC ABG pH ABG pH POC ABG pCO2 POC ABG pO2 ABG pO2 ABG HCO3 ABG Base Excess ABG Hemoglobin VBG pH Oxyhemoglobin Sodium Potassium Chloride Carbon Dioxide BUN Creatinine Glucose POC Glucose 195 H 240 H 230 H Lactic Acid Calcium AST Alkaline Phosphatase CK-MB (CK-2) CK-MB (CK-2) Rel Index Albumin TSH Urine WBC (Auto) Salicylates 03/14/17 03/14/17 03/14/17 14:04 17:34 23:42 WBC RBC Hgb Hct MCV MCH RDW Plt Count Lymph % (Auto) [place] % (Auto) Eos % (Auto) Seg Neutrophils % Seg Neuts % (Manual) Lymphocytes % (Manual) Seg Neutrophils # Seg Neutrophils # Man Lymphocytes # (Manual) APTT POC ABG pH ABG pH POC ABG pCO2 POC ABG pO2 ABG pO2 ABG HCO3 ABG Base Excess ABG Hemoglobin VBG pH Oxyhemoglobin Sodium Potassium Chloride Carbon Dioxide BUN Creatinine Glucose POC Glucose 227 H 186 H 225 H Lactic Acid Calcium AST Alkaline Phosphatase CK-MB (CK-2) CK-MB (CK-2) Rel Index Albumin TSH Urine WBC (Auto) Salicylates 03/15/17 03/15/17 03/15/17 05:21 17:13 21:37 WBC RBC Hgb Hct MCV MCH RDW Plt Count Lymph % (Auto) [place] % (Auto) Eos % (Auto) Seg Neutrophils % Seg Neuts % (Manual) Lymphocytes % (Manual) Seg Neutrophils # Seg Neutrophils # Man Lymphocytes # (Manual) APTT POC ABG pH ABG pH POC ABG pCO2 POC ABG pO2 ABG pO2 ABG HCO3 ABG Base Excess ABG Hemoglobin VBG pH Oxyhemoglobin Sodium Potassium Chloride Carbon Dioxide BUN Creatinine Glucose POC Glucose 244 H 203 H 216 H Lactic Acid Calcium AST Alkaline Phosphatase CK-MB (CK-2) CK-MB (CK-2) Rel Index Albumin TSH Urine WBC (Auto) Salicylates 03/16/17 03/16/17 03/16/17 05:52 18:07 21:54 WBC RBC Hgb Hct MCV MCH RDW Plt Count Lymph % (Auto) [place] % (Auto) Eos % (Auto) Seg Neutrophils % Seg Neuts % (Manual) Lymphocytes % (Manual) Seg Neutrophils # Seg Neutrophils # Man Lymphocytes # (Manual) APTT POC ABG pH ABG pH POC ABG pCO2 POC ABG pO2 ABG pO2 ABG HCO3 ABG Base Excess ABG Hemoglobin VBG pH Oxyhemoglobin Sodium Potassium Chloride Carbon Dioxide BUN Creatinine Glucose POC Glucose 248 H 254 H 244 H Lactic Acid Calcium AST Alkaline Phosphatase CK-MB (CK-2) CK-MB (CK-2) Rel Index Albumin TSH Urine WBC (Auto) Salicylates 03/17/17 03/17/17 03/17/17 07:07 07:42 07:43 WBC RBC Hgb 9.7 L Hct 29.1 L MCV 78 L MCH 26 L RDW 17.4 H Plt Count Lymph % (Auto) [place] % (Auto) Eos % (Auto) Seg Neutrophils % Seg Neuts % (Manual) Lymphocytes % (Manual) Seg Neutrophils # Seg Neutrophils # Man Lymphocytes # (Manual) APTT POC ABG pH ABG pH POC ABG pCO2 POC ABG pO2 ABG pO2 ABG HCO3 ABG Base Excess ABG Hemoglobin VBG pH Oxyhemoglobin Sodium Potassium Chloride 96.6 L Carbon Dioxide BUN 30 H Creatinine 0.5 L Glucose 251 H POC Glucose 222 H Lactic Acid Calcium AST Alkaline Phosphatase CK-MB (CK-2) CK-MB (CK-2) Rel Index Albumin TSH Urine WBC (Auto) Salicylates 03/17/17 03/17/17 03/18/17 14:08 21:20 14:24 WBC RBC Hgb Hct MCV MCH RDW Plt Count Lymph % (Auto) [place] % (Auto) Eos % (Auto) Seg Neutrophils % Seg Neuts % (Manual) Lymphocytes % (Manual) Seg Neutrophils # Seg Neutrophils # Man Lymphocytes # (Manual) APTT POC ABG pH ABG pH POC ABG pCO2 POC ABG pO2 ABG pO2 ABG HCO3 ABG Base Excess ABG Hemoglobin VBG pH Oxyhemoglobin Sodium Potassium Chloride Carbon Dioxide BUN Creatinine Glucose POC Glucose 281 H 239 H 195 H Lactic Acid Calcium AST Alkaline Phosphatase CK-MB (CK-2) CK-MB (CK-2) Rel Index Albumin TSH Urine WBC (Auto) Salicylates 03/18/17 03/19/17 03/19/17 21:37 04:57 14:23 WBC RBC Hgb Hct MCV MCH RDW Plt Count Lymph % (Auto) [place] % (Auto) Eos % (Auto) Seg Neutrophils % Seg Neuts % (Manual) Lymphocytes % (Manual) Seg Neutrophils # Seg Neutrophils # Man Lymphocytes # (Manual) APTT POC ABG pH ABG pH POC ABG pCO2 POC ABG pO2 ABG pO2 ABG HCO3 ABG Base Excess ABG Hemoglobin VBG pH Oxyhemoglobin Sodium Potassium Chloride Carbon Dioxide BUN Creatinine Glucose POC Glucose 227 H 205 H 277 H Lactic Acid Calcium AST Alkaline Phosphatase CK-MB (CK-2) CK-MB (CK-2) Rel Index Albumin TSH Urine WBC (Auto) Salicylates 03/19/17 03/19/17 03/20/17 20:31 21:47 04:55 WBC RBC Hgb Hct MCV MCH RDW Plt Count Lymph % (Auto) [place] % (Auto) Eos % (Auto) Seg Neutrophils % Seg Neuts % (Manual) Lymphocytes % (Manual) Seg Neutrophils # Seg Neutrophils # Man Lymphocytes # (Manual) APTT POC ABG pH ABG pH POC ABG pCO2 POC ABG pO2 ABG pO2 ABG HCO3 ABG Base Excess ABG Hemoglobin VBG pH Oxyhemoglobin Sodium Potassium Chloride Carbon Dioxide BUN Creatinine Glucose POC Glucose 256 H 270 H 202 H Lactic Acid Calcium AST Alkaline Phosphatase CK-MB (CK-2) CK-MB (CK-2) Rel Index Albumin TSH Urine WBC (Auto) Salicylates 03/20/17 03/20/17 03/21/17 14:09 21:40 05:09 WBC RBC Hgb Hct MCV MCH RDW Plt Count Lymph % (Auto) [place] % (Auto) Eos % (Auto) Seg Neutrophils % Seg Neuts % (Manual) Lymphocytes % (Manual) Seg Neutrophils # Seg Neutrophils # Man Lymphocytes # (Manual) APTT POC ABG pH ABG pH POC ABG pCO2 POC ABG pO2 ABG pO2 ABG HCO3 ABG Base Excess ABG Hemoglobin VBG pH Oxyhemoglobin Sodium Potassium Chloride Carbon Dioxide BUN Creatinine Glucose POC Glucose 200 H 214 H 233 H Lactic Acid Calcium AST Alkaline Phosphatase CK-MB (CK-2) CK-MB (CK-2) Rel Index Albumin TSH Urine WBC (Auto) Salicylates 03/21/17 03/21/17 03/22/17 14:06 21:26 05:43 WBC RBC Hgb Hct MCV MCH RDW Plt Count Lymph % (Auto) [place] % (Auto) Eos % (Auto) Seg Neutrophils % Seg Neuts % (Manual) Lymphocytes % (Manual) Seg Neutrophils # Seg Neutrophils # Man Lymphocytes # (Manual) APTT POC ABG pH ABG pH POC ABG pCO2 POC ABG pO2 ABG pO2 ABG HCO3 ABG Base Excess ABG Hemoglobin VBG pH Oxyhemoglobin Sodium Potassium Chloride Carbon Dioxide BUN Creatinine Glucose POC Glucose 250 H 155 H 251 H Lactic Acid Calcium AST Alkaline Phosphatase CK-MB (CK-2) CK-MB (CK-2) Rel Index Albumin TSH Urine WBC (Auto) Salicylates 03/22/17 03/22/17 03/23/17 13:46 21:16 00:23 WBC RBC Hgb Hct MCV MCH RDW Plt Count Lymph % (Auto) [place] % (Auto) Eos % (Auto) Seg Neutrophils % Seg Neuts % (Manual) Lymphocytes % (Manual) Seg Neutrophils # Seg Neutrophils # Man Lymphocytes # (Manual) APTT POC ABG pH ABG pH POC ABG pCO2 POC ABG pO2 ABG pO2 ABG HCO3 ABG Base Excess ABG Hemoglobin VBG pH Oxyhemoglobin Sodium Potassium Chloride Carbon Dioxide BUN Creatinine Glucose POC Glucose 269 H 197 H 126 H Lactic Acid Calcium AST Alkaline Phosphatase CK-MB (CK-2) CK-MB (CK-2) Rel Index Albumin TSH Urine WBC (Auto) Salicylates 03/23/17 03/23/17 03/23/17 05:39 14:06 21:39 WBC RBC Hgb Hct MCV MCH RDW Plt Count Lymph % (Auto) [place] % (Auto) Eos % (Auto) Seg Neutrophils % Seg Neuts % (Manual) Lymphocytes % (Manual) Seg Neutrophils # Seg Neutrophils # Man Lymphocytes # (Manual) APTT POC ABG pH ABG pH POC ABG pCO2 POC ABG pO2 ABG pO2 ABG HCO3 ABG Base Excess ABG Hemoglobin VBG pH Oxyhemoglobin Sodium Potassium Chloride Carbon Dioxide BUN Creatinine Glucose POC Glucose 234 H 241 H 248 H Lactic Acid Calcium AST Alkaline Phosphatase CK-MB (CK-2) CK-MB (CK-2) Rel Index Albumin TSH Urine WBC (Auto) Salicylates 03/24/17 05:06 WBC RBC Hgb Hct MCV MCH RDW Plt Count Lymph % (Auto) [place] % (Auto) Eos % (Auto) Seg Neutrophils % Seg Neuts % (Manual) Lymphocytes % (Manual) Seg Neutrophils # Seg Neutrophils # Man Lymphocytes # (Manual) APTT POC ABG pH ABG pH POC ABG pCO2 POC ABG pO2 ABG pO2 ABG HCO3 ABG Base Excess ABG Hemoglobin VBG pH Oxyhemoglobin Sodium Potassium Chloride Carbon Dioxide BUN Creatinine Glucose POC Glucose 232 H Lactic Acid Calcium AST Alkaline Phosphatase CK-MB (CK-2) CK-MB (CK-2) Rel Index Albumin TSH Urine WBC (Auto) Salicylates
--- NOTE | 2017-03-24 15:33 | Progress Note ---
Assessment and Plan Hypoglycemic brain injury Persistent vegetative state Metabolic encephalopathy Hypoglycemia/hypothermia, resolved Acute respiratory failure mechanical ventilator greater than 96 hours UTI with klebsiella, treated ( Cx + on 01/28), then with ESBL likely colonization hyponatremia, Hypothyroidism IDDM Hypertension low grade Fever, resolved - Cont supportive care and current medication. Monitor vitals, repeat cx on - no growth - increased dose of long acting insulin to 15 unit - Patient is DNR- needs guardianship from the state to give consent for further management, as has no family to give consent. Brief History: 51 YO Male with CKD,HTN, DM presents to ED after found down and unresponsive by his neighbor, who subsequently called EMS. Upon arrival, patient found unresponsive on the floor with a serum glucose of 21, patient has a known history of alcohol abuse and delirium tremens. The patient was administered D5 approximate 500 mls during transport without change in mental status/level of consciousness. Pt seen and evaluated in ED was was found to be unable to protect his airway. Pt intubated and placed on vent support. Pt found to have evidence of hypothyroidism. He was started on Synthroid. He has since been in the ICU. director of employer services try to locate family, even spoke to the family who he lives with. They themselves were unaware of any family members. After ethics committee meeting on the patient. The decision was made to make him DO NOT RESUSCITATE and to transfer him to hospice. Given his very poor prognosis and poor likelihood of recovery. It was decided that was not his best interest to get trach and PEG. Therefore he'll be transferred to the hospice intubated. Now Awaiting on court ordered /state guardianship. Hospitalist Physical - Physical exam Narrative exam: General: comatose HEENT: Moist mucous membranes, , no lymphadenopathy Neck: supple Cardiac: S1-S2 heard Lungs: mechnical ventilated breath sounds Abdomen: soft , nontender, nondistended, bowel sounds positive Extremities: no edema clubbing or cyanosis Skin: no rash or lesions Neurologic: opens eyes, no response to deep painful stimuli, does not follow commend Subjective Date of service: 03/24/17 Principal diagnosis: Acute respiratory failure,encephalopathy Interval history: patient remains comatose, no movement of extremities afebrile o/n, no clinical change Objective - Constitutional Vitals: Vital Signs - 12hr 03/24/17 03/24/17 03/24/17 04:01 05:01 06:01 Pulse Rate 66 65 63 Pulse Rate [ From Monitor] Respiratory 14 12 12 Rate Respiratory Rate [ Generalized] Blood Pressure 167/87 167/87 167/87 O2 Sat by Pulse 90 64 L Oximetry 03/24/17 03/24/17 03/24/17 07:01 08:00 10:00 Pulse Rate 67 70 70 Pulse Rate [ 66 From Monitor] Respiratory 13 12 Rate Respiratory 12 Rate [ Generalized] Blood Pressure 167/87 143/90 O2 Sat by Pulse 100 Oximetry 03/24/17 03/24/17 03/24/17 10:01 10:40 12:01 Pulse Rate 75 72 64 Pulse Rate [ From Monitor] Respiratory 17 14 Rate Respiratory Rate [ Generalized] Blood Pressure 143/90 143/90 143/90 O2 Sat by Pulse 100 99 96 Oximetry - Labs CBC & Chem 7: 03/17/17 07:43 03/17/17 07:42 Labs: Abnormal lab results 03/23/17 03/23/17 03/24/17 Range/Units 00:23 21:39 05:06 POC Glucose 126 H 248 H 232 H (70-105)
[2017-03-25] MEDS: HumuLIN R SUB-Q SCH ×4 (06:00→23:26)
[2017-03-25] MEDS: SYNTHROID PO SCH (06:01)
--- NOTE | 2017-03-25 07:32 | Progress Note ---
Assessment and Plan Hypoglycemic brain injury Persistent vegetative state Metabolic encephalopathy Hypoglycemia/hypothermia, resolved Acute respiratory failure mechanical ventilator greater than 96 hours UTI with klebsiella, treated ( Cx + on 01/28), then with ESBL likely colonization hyponatremia, Hypothyroidism IDDM Hypertension low grade Fever, resolved - Cont supportive care and current medication. Monitor vitals, repeat cx on - no growth - increased dose of long acting insulin to 15 unit - Patient is DNR- needs guardianship from the state to give consent for further management, as has no family to give consent. Brief History: 51 YO Male with CKD,HTN, DM presents to ED after found down and unresponsive by his neighbor, who subsequently called EMS. Upon arrival, patient found unresponsive on the floor with a serum glucose of 21, patient has a known history of alcohol abuse and delirium tremens. The patient was administered D5 approximate 500 mls during transport without change in mental status/level of consciousness. Pt seen and evaluated in ED was was found to be unable to protect his airway. Pt intubated and placed on vent support. Pt found to have evidence of hypothyroidism. He was started on Synthroid. He has since been in the ICU. senior administrative services officer try to locate family, even spoke to the family who he lives with. They themselves were unaware of any family members. After ethics committee meeting on the patient. The decision was made to make him DO NOT RESUSCITATE and to transfer him to hospice. Given his very poor prognosis and poor likelihood of recovery. It was decided that was not his best interest to get trach and PEG. Therefore he'll be transferred to the hospice intubated. Now Awaiting on court ordered /state guardianship. Hospitalist Physical - Physical exam Narrative exam: General: comatose HEENT: Moist mucous membranes, , no lymphadenopathy Neck: supple Cardiac: S1-S2 heard Lungs: mechnical ventilated breath sounds Abdomen: soft , nontender, nondistended, bowel sounds positive Extremities: no edema clubbing or cyanosis Skin: no rash or lesions Neurologic: opens eyes, no response to deep painful stimuli, does not follow commend Subjective Date of service: 03/25/17 Principal diagnosis: Acute respiratory failure,encephalopathy Interval history: patient remains comatose, no movement of extremities afebrile o/n, no clinical change Objective - Constitutional Vitals: Vital Signs - 12hr 03/24/17 03/24/17 03/24/17 19:44 20:01 22:00 Temperature 97.2 F L Pulse Rate 76 86 Respiratory 15 Rate Respiratory 12 Rate [ Generalized] Blood Pressure 130/92 O2 Sat by Pulse 100 Oximetry 03/24/17 03/24/17 03/24/17 22:01 23:30 23:48 Temperature 98 F Pulse Rate 73 74 Respiratory 12 Rate Respiratory Rate [ Generalized] Blood Pressure 130/92 130/92 O2 Sat by Pulse 100 100 Oximetry 03/25/17 03/25/17 03/25/17 00:00 03:39 05:16 Temperature 98.8 F Pulse Rate 74 62 Respiratory 16 Rate Respiratory Rate [ Generalized] Blood Pressure 140/88 140/88 O2 Sat by Pulse 99 100 Oximetry - Labs CBC & Chem 7: 03/17/17 07:43 03/17/17 07:42 Labs: Abnormal lab results 03/24/17 03/25/17 Range/Units 21:46 05:38 POC Glucose 276 H 242 H (70-105)
[2017-03-25] MEDS: HEPARIN SUB-Q SCH ×2 (09:40→21:27)
[2017-03-25] MEDS: PEPCID PO SCH ×2 (09:41→21:27)
--- NOTE | 2017-03-25 10:52 | Progress Note ---
Assessment and Plan Acute respiratory failure,prolonged vent/ETT support Hypoglycemia episode-mild hyperglicemic.Controlled DM Metabolic encephalopathy. Prolonged vegetative state ,status unchanged Hypothyroidism; UTI/SIRS. Resolved Recommendations Currently the patient is DO NOT RESUSCITATE. No new word,waiting for final administrative decision, from court order regarding designated POA,to decide assisted care Continue PSV/CPAP trials during the day. Suction as needed DVT prophylaxis Continue contact isolation complex patient. No family available. Subjective Date of service: 03/25/17 Principal diagnosis: Acute respiratory failure,encephalopathy Interval history: No change ,intubated. Objective Vital Signs - 12hr 03/24/17 03/24/17 03/25/17 23:30 23:48 00:00 Temperature 98 F Pulse Rate 74 74 Pulse Rate [ From Monitor] Respiratory 16 Rate Blood Pressure 130/92 140/88 O2 Sat by Pulse 100 99 Oximetry 03/25/17 03/25/17 03/25/17 03:39 05:16 07:50 Temperature 98.8 F Pulse Rate 62 Pulse Rate [ 63 From Monitor] Respiratory 15 Rate Blood Pressure 140/88 O2 Sat by Pulse 100 100 Oximetry 03/25/17 03/25/17 08:00 09:50 Temperature 97.2 F L Pulse Rate 59 L Pulse Rate [ From Monitor] Respiratory Rate Blood Pressure 129/79 O2 Sat by Pulse 100 Oximetry Constitutional: no acute distress, other (intubated, on vent support) Eyes: non-icteric ENT: oropharynx moist Neck: supple, no JVD Effort: normal Ascultation: Bilateral: clear, diminished breath sounds Cardiovascular: regular rate and rhythm Gastrointestinal: normoactive bowel sounds, soft, non-tender, non-distended Integumentary: normal Extremities: no cyanosis, no edema, pink and warm Neurologic: pupils equal and round, other (minimal responsive,no posturing, otherwise no changes, not following any commands. ) Psychiatric: other (unable to obtain) CBC and BMP: 03/17/17 07:43 03/17/17 07:42 ABG, PT/INR, D-dimer: ABG POC ABG pH 7.442 (7.35-7.45) 01/31/17 18:55 ABG pH 7.420 pH Units (7.350-7.450) 01/17/17 04:35 POC ABG pCO2 32.8 (35-45) L 01/31/17 18:55 ABG pCO2 34.5 mm Hg 01/17/17 04:35 POC ABG pO2 82 (80-105) 01/31/17 18:55 ABG pO2 160.3 mm Hg (80.0-90.0) H 01/17/17 04:35 POC ABG HCO3 22.4 01/31/17 18:55 POC ABG Total CO2 23 01/31/17 18:55 POC ABG O2 Sat 97 01/31/17 18:55 ABG O2 Saturation 99.0 % (95.0-99.0) 01/17/17 04:35 PT/INR, D-dimer PT 14.1 Sec. (12.2-14.9) 01/17/17 04:10 INR 1.04 (0.87-1.13) 01/17/17 04:10 Abnormal lab findings: Abnormal Labs 01/09/17 01/09/17 01/09/17 10:16 10:16 10:16 WBC RBC Hgb 9.7 L Hct 28.4 L MCV 76 L MCH 26 L RDW 17.2 H Plt Count 448 H Lymph % (Auto) [place] % (Auto) Eos % (Auto) Seg Neutrophils % 79.5 H Seg Neuts % (Manual) Lymphocytes % (Manual) Seg Neutrophils # Seg Neutrophils # Man Lymphocytes # (Manual) APTT 39.6 H POC ABG pH ABG pH POC ABG pCO2 POC ABG pO2 ABG pO2 ABG HCO3 ABG Base Excess ABG Hemoglobin VBG pH Oxyhemoglobin Sodium 132 L Potassium Chloride 96.7 L Carbon Dioxide 21 L BUN 34 H Creatinine Glucose POC Glucose Lactic Acid Calcium 8.3 L AST Alkaline Phosphatase 151 H CK-MB (CK-2) 7.1 H CK-MB (CK-2) Rel Index 5.2 H Albumin 3.3 L TSH Urine WBC (Auto) Salicylates 01/09/17 01/09/17 01/09/17 10:16 10:16 10:16 WBC RBC Hgb Hct MCV MCH RDW Plt Count Lymph % (Auto) [place] % (Auto) Eos % (Auto) Seg Neutrophils % Seg Neuts % (Manual) Lymphocytes % (Manual) Seg Neutrophils # Seg Neutrophils # Man Lymphocytes # (Manual) APTT POC ABG pH ABG pH POC ABG pCO2 POC ABG pO2 ABG pO2 ABG HCO3 ABG Base Excess ABG Hemoglobin VBG pH 7.284 L Oxyhemoglobin Sodium Potassium Chloride Carbon Dioxide BUN Creatinine Glucose POC Glucose Lactic Acid Calcium AST Alkaline Phosphatase CK-MB (CK-2) CK-MB (CK-2) Rel Index Albumin TSH 52.800 H Urine WBC (Auto) Salicylates < 0.3 L 01/09/17 01/09/17 01/09/17 10:23 11:14 12:49 WBC RBC Hgb Hct MCV MCH RDW Plt Count Lymph % (Auto) [place] % (Auto) Eos % (Auto) Seg Neutrophils % Seg Neuts % (Manual) Lymphocytes % (Manual) Seg Neutrophils # Seg Neutrophils # Man Lymphocytes # (Manual) APTT POC ABG pH ABG pH POC ABG pCO2 POC ABG pO2 643 H ABG pO2 ABG HCO3 ABG Base Excess ABG Hemoglobin VBG pH Oxyhemoglobin Sodium Potassium Chloride Carbon Dioxide BUN Creatinine Glucose POC Glucose < 40 L Lactic Acid Calcium AST Alkaline Phosphatase CK-MB (CK-2) CK-MB (CK-2) Rel Index Albumin TSH Urine WBC (Auto) 61.0 H Salicylates 01/09/17 01/09/17 01/09/17 13:13 14:21 15:09 WBC RBC Hgb Hct MCV MCH RDW Plt Count Lymph % (Auto) [place] % (Auto) Eos % (Auto) Seg Neutrophils % Seg Neuts % (Manual) Lymphocytes % (Manual) Seg Neutrophils # Seg Neutrophils # Man Lymphocytes # (Manual) APTT POC ABG pH ABG pH POC ABG pCO2 POC ABG pO2 ABG pO2 ABG HCO3 ABG Base Excess ABG Hemoglobin VBG pH Oxyhemoglobin Sodium Potassium Chloride Carbon Dioxide BUN Creatinine Glucose POC Glucose 128 H 65 L 120 H Lactic Acid Calcium AST Alkaline Phosphatase CK-MB (CK-2) CK-MB (CK-2) Rel Index Albumin TSH Urine WBC (Auto) Salicylates 01/09/17 01/09/17 01/10/17 16:28 17:14 04:30 WBC 24.1 H RBC 3.38 L Hgb 8.5 L Hct 26.0 L MCV 77 L MCH 25 L RDW 17.9 H Plt Count 474 H Lymph % (Auto) [place] % (Auto) Eos % (Auto) Seg Neutrophils % Seg Neuts % (Manual) 88.0 H Lymphocytes % (Manual) 4.0 L Seg Neutrophils # Seg Neutrophils # Man 21.2 H Lymphocytes # (Manual) 1.0 L APTT POC ABG pH ABG pH POC ABG pCO2 POC ABG pO2 ABG pO2 ABG HCO3 ABG Base Excess ABG Hemoglobin VBG pH Oxyhemoglobin Sodium Potassium Chloride Carbon Dioxide BUN Creatinine Glucose POC Glucose 44 L 112 H Lactic Acid Calcium AST Alkaline Phosphatase CK-MB (CK-2) CK-MB (CK-2) Rel Index Albumin TSH Urine WBC (Auto) Salicylates 01/10/17 01/10/17 01/10/17 04:30 05:41 05:45 WBC RBC Hgb Hct MCV MCH RDW Plt Count Lymph % (Auto) [place] % (Auto) Eos % (Auto) Seg Neutrophils % Seg Neuts % (Manual) Lymphocytes % (Manual) Seg Neutrophils # Seg Neutrophils # Man Lymphocytes # (Manual) APTT POC ABG pH ABG pH POC ABG pCO2 26.6 L POC ABG pO2 207 H ABG pO2 ABG HCO3 ABG Base Excess ABG Hemoglobin VBG pH Oxyhemoglobin Sodium Potassium Chloride Carbon Dioxide 17 L BUN 27 H Creatinine Glucose POC Glucose 68 L Lactic Acid Calcium 7.5 L AST Alkaline Phosphatase CK-MB (CK-2) CK-MB (CK-2) Rel Index Albumin TSH Urine WBC (Auto) Salicylates 01/10/17 01/10/17 01/10/17 07:47 10:50 13:41 WBC RBC Hgb Hct MCV MCH RDW Plt Count Lymph % (Auto) [place] % (Auto) Eos % (Auto) Seg Neutrophils % Seg Neuts % (Manual) Lymphocytes % (Manual) Seg Neutrophils # Seg Neutrophils # Man Lymphocytes # (Manual) APTT POC ABG pH ABG pH POC ABG pCO2 POC ABG pO2 ABG pO2 ABG HCO3 ABG Base Excess ABG Hemoglobin VBG pH Oxyhemoglobin Sodium Potassium Chloride Carbon Dioxide BUN Creatinine Glucose POC Glucose 148 H 165 H 114 H Lactic Acid Calcium AST Alkaline Phosphatase CK-MB (CK-2) CK-MB (CK-2) Rel Index Albumin TSH Urine WBC (Auto) Salicylates 01/10/17 01/10/17 01/10/17 20:20 21:39 23:24 WBC RBC Hgb Hct MCV MCH RDW Plt Count Lymph % (Auto) [place] % (Auto) Eos % (Auto) Seg Neutrophils % Seg Neuts % (Manual) Lymphocytes % (Manual) Seg Neutrophils # Seg Neutrophils # Man Lymphocytes # (Manual) APTT POC ABG pH ABG pH POC ABG pCO2 POC ABG pO2 ABG pO2 ABG HCO3 ABG Base Excess ABG Hemoglobin VBG pH Oxyhemoglobin Sodium Potassium Chloride Carbon Dioxide BUN Creatinine Glucose POC Glucose 150 H 175 H 155 H Lactic Acid Calcium AST Alkaline Phosphatase CK-MB (CK-2) CK-MB (CK-2) Rel Index Albumin TSH Urine WBC (Auto) Salicylates 01/11/17 01/11/17 01/11/17 00:19 04:06 05:20 WBC 15.2 H RBC 3.40 L Hgb 8.9 L Hct 26.3 L MCV 78 L MCH 26 L RDW 18.6 H Plt Count 462 H Lymph % (Auto) 13.2 L [place] % (Auto) Eos % (Auto) Seg Neutrophils % 80.8 H Seg Neuts % (Manual) Lymphocytes % (Manual) Seg Neutrophils # 12.3 H Seg Neutrophils # Man Lymphocytes # (Manual) APTT POC ABG pH 7.463 H ABG pH POC ABG pCO2 26.2 L POC ABG pO2 185 H ABG pO2 ABG HCO3 ABG Base Excess ABG Hemoglobin VBG pH Oxyhemoglobin Sodium Potassium Chloride Carbon Dioxide BUN Creatinine Glucose POC Glucose 163 H Lactic Acid Calcium AST Alkaline Phosphatase CK-MB (CK-2) CK-MB (CK-2) Rel Index Albumin TSH Urine WBC (Auto) Salicylates 01/11/17 01/11/17 01/11/17 05:20 06:21 07:57 WBC RBC Hgb Hct MCV MCH RDW Plt Count Lymph % (Auto) [place] % (Auto) Eos % (Auto) Seg Neutrophils % Seg Neuts % (Manual) Lymphocytes % (Manual) Seg Neutrophils # Seg Neutrophils # Man Lymphocytes # (Manual) APTT POC ABG pH ABG pH POC ABG pCO2 POC ABG pO2 ABG pO2 ABG HCO3 ABG Base Excess ABG Hemoglobin VBG pH Oxyhemoglobin Sodium Potassium 3.4 L Chloride 111.5 H Carbon Dioxide 17 L BUN Creatinine Glucose 147 H POC Glucose 139 H 188 H Lactic Acid Calcium 8.0 L AST Alkaline Phosphatase CK-MB (CK-2) CK-MB (CK-2) Rel Index Albumin TSH Urine WBC (Auto) Salicylates 01/11/17 01/11/17 01/11/17 11:46 16:50 23:15 WBC RBC Hgb Hct MCV MCH RDW Plt Count Lymph % (Auto) [place] % (Auto) Eos % (Auto) Seg Neutrophils % Seg Neuts % (Manual) Lymphocytes % (Manual) Seg Neutrophils # Seg Neutrophils # Man Lymphocytes # (Manual) APTT POC ABG pH ABG pH POC ABG pCO2 POC ABG pO2 ABG pO2 ABG HCO3 ABG Base Excess ABG Hemoglobin VBG pH Oxyhemoglobin Sodium Potassium Chloride Carbon Dioxide BUN Creatinine Glucose POC Glucose 199 H 235 H 155 H Lactic Acid Calcium AST Alkaline Phosphatase CK-MB (CK-2) CK-MB (CK-2) Rel Index Albumin TSH Urine WBC (Auto) Salicylates 01/12/17 01/12/17 01/12/17 05:02 06:56 14:50 WBC RBC Hgb Hct MCV MCH RDW Plt Count Lymph % (Auto) [place] % (Auto) Eos % (Auto) Seg Neutrophils % Seg Neuts % (Manual) Lymphocytes % (Manual) Seg Neutrophils # Seg Neutrophils # Man Lymphocytes # (Manual) APTT POC ABG pH ABG pH POC ABG pCO2 28.0 L POC ABG pO2 178 H ABG pO2 ABG HCO3 ABG Base Excess ABG Hemoglobin VBG pH Oxyhemoglobin Sodium Potassium Chloride Carbon Dioxide BUN Creatinine Glucose POC Glucose 119 H 164 H Lactic Acid Calcium AST Alkaline Phosphatase CK-MB (CK-2) CK-MB (CK-2) Rel Index Albumin TSH Urine WBC (Auto) Salicylates 01/13/17 01/13/17 01/13/17 03:37 03:37 04:26 WBC RBC 3.61 L Hgb 9.3 L Hct 28.0 L MCV 78 L MCH 26 L RDW 18.2 H Plt Count Lymph % (Auto) [place] % (Auto) Eos % (Auto) Seg Neutrophils % Seg Neuts % (Manual) Lymphocytes % (Manual) Seg Neutrophils # Seg Neutrophils # Man Lymphocytes # (Manual) APTT POC ABG pH 7.485 H ABG pH POC ABG pCO2 25.4 L POC ABG pO2 73 L ABG pO2 ABG HCO3 ABG Base Excess ABG Hemoglobin VBG pH Oxyhemoglobin Sodium Potassium Chloride 112.4 H Carbon Dioxide 19 L BUN Creatinine Glucose 118 H POC Glucose Lactic Acid Calcium 8.0 L AST Alkaline Phosphatase CK-MB (CK-2) CK-MB (CK-2) Rel Index Albumin TSH Urine WBC (Auto) Salicylates 01/13/17 01/13/17 01/13/17 06:15 11:50 17:31 WBC RBC Hgb Hct MCV MCH RDW Plt Count Lymph % (Auto) [place] % (Auto) Eos % (Auto) Seg Neutrophils % Seg Neuts % (Manual) Lymphocytes % (Manual) Seg Neutrophils # Seg Neutrophils # Man Lymphocytes # (Manual) APTT POC ABG pH ABG pH POC ABG pCO2 POC ABG pO2 ABG pO2 ABG HCO3 ABG Base Excess ABG Hemoglobin VBG pH Oxyhemoglobin Sodium Potassium Chloride Carbon Dioxide BUN Creatinine Glucose POC Glucose 116 H 171 H 203 H Lactic Acid Calcium AST Alkaline Phosphatase CK-MB (CK-2) CK-MB (CK-2) Rel Index Albumin TSH Urine WBC (Auto) Salicylates 01/14/17 01/14/17 01/14/17 00:02 04:50 04:50 WBC RBC 3.32 L Hgb 8.5 L Hct 26.1 L MCV 79 L MCH 26 L RDW 18.2 H Plt Count Lymph % (Auto) [place] % (Auto) 9.0 H Eos % (Auto) Seg Neutrophils % Seg Neuts % (Manual) Lymphocytes % (Manual) Seg Neutrophils # Seg Neutrophils # Man Lymphocytes # (Manual) APTT POC ABG pH ABG pH POC ABG pCO2 POC ABG pO2 ABG pO2 ABG HCO3 ABG Base Excess ABG Hemoglobin VBG pH Oxyhemoglobin Sodium Potassium Chloride 112.5 H Carbon Dioxide BUN Creatinine Glucose 149 H POC Glucose 157 H Lactic Acid Calcium 8.1 L AST Alkaline Phosphatase CK-MB (CK-2) CK-MB (CK-2) Rel Index Albumin TSH Urine WBC (Auto) Salicylates 01/14/17 01/14/17 01/14/17 05:10 11:27 14:07 WBC RBC Hgb Hct MCV MCH RDW Plt Count Lymph % (Auto) [place] % (Auto) Eos % (Auto) Seg Neutrophils % Seg Neuts % (Manual) Lymphocytes % (Manual) Seg Neutrophils # Seg Neutrophils # Man Lymphocytes # (Manual) APTT POC ABG pH ABG pH POC ABG pCO2 POC ABG pO2 ABG pO2 ABG HCO3 ABG Base Excess ABG Hemoglobin VBG pH Oxyhemoglobin Sodium Potassium Chloride Carbon Dioxide BUN Creatinine Glucose POC Glucose 176 H 147 H Lactic Acid Calcium AST Alkaline Phosphatase CK-MB (CK-2) CK-MB (CK-2) Rel Index Albumin TSH Urine WBC (Auto) 53.0 H Salicylates 01/14/17 01/15/17 01/15/17 16:52 00:04 05:26 WBC RBC Hgb Hct MCV MCH RDW Plt Count Lymph % (Auto) [place] % (Auto) Eos % (Auto) Seg Neutrophils % Seg Neuts % (Manual) Lymphocytes % (Manual) Seg Neutrophils # Seg Neutrophils # Man Lymphocytes # (Manual) APTT POC ABG pH ABG pH POC ABG pCO2 POC ABG pO2 ABG pO2 ABG HCO3 ABG Base Excess ABG Hemoglobin VBG pH Oxyhemoglobin Sodium Potassium Chloride Carbon Dioxide BUN Creatinine Glucose POC Glucose 131 H 193 H 215 H Lactic Acid Calcium AST Alkaline Phosphatase CK-MB (CK-2) CK-MB (CK-2) Rel Index Albumin TSH Urine WBC (Auto) Salicylates 01/15/17 01/15/17 01/15/17 11:49 17:47 21:33 WBC RBC Hgb Hct MCV MCH RDW Plt Count Lymph % (Auto) [place] % (Auto) Eos % (Auto) Seg Neutrophils % Seg Neuts % (Manual) Lymphocytes % (Manual) Seg Neutrophils # Seg Neutrophils # Man Lymphocytes # (Manual) APTT POC ABG pH ABG pH POC ABG pCO2 POC ABG pO2 ABG pO2 ABG HCO3 ABG Base Excess ABG Hemoglobin VBG pH Oxyhemoglobin Sodium Potassium Chloride Carbon Dioxide BUN Creatinine Glucose POC Glucose 121 H 211 H 275 H Lactic Acid Calcium AST Alkaline Phosphatase CK-MB (CK-2) CK-MB (CK-2) Rel Index Albumin TSH Urine WBC (Auto) Salicylates 01/16/17 01/16/17 01/16/17 04:30 05:28 13:45 WBC RBC Hgb Hct MCV MCH RDW Plt Count Lymph % (Auto) [place] % (Auto) Eos % (Auto) Seg Neutrophils % Seg Neuts % (Manual) Lymphocytes % (Manual) Seg Neutrophils # Seg Neutrophils # Man Lymphocytes # (Manual) APTT POC ABG pH ABG pH 7.457 H POC ABG pCO2 POC ABG pO2 ABG pO2 55.1 L ABG HCO3 19.4 L ABG Base Excess -4.0 L ABG Hemoglobin 6.8 L VBG pH Oxyhemoglobin 94.9 L Sodium Potassium Chloride Carbon Dioxide BUN Creatinine Glucose POC Glucose 271 H 236 H Lactic Acid Calcium AST Alkaline Phosphatase CK-MB (CK-2) CK-MB (CK-2) Rel Index Albumin TSH Urine WBC (Auto) Salicylates 01/16/17 01/17/17 01/17/17 21:39 04:10 04:10 WBC 4.4 L RBC 2.98 L Hgb 7.7 L Hct 23.3 L MCV 78 L MCH 26 L RDW 18.1 H Plt Count Lymph % (Auto) [place] % (Auto) Eos % (Auto) Seg Neutrophils % Seg Neuts % (Manual) Lymphocytes % (Manual) Seg Neutrophils # Seg Neutrophils # Man Lymphocytes # (Manual) APTT POC ABG pH ABG pH POC ABG pCO2 POC ABG pO2 ABG pO2 ABG HCO3 ABG Base Excess ABG Hemoglobin VBG pH Oxyhemoglobin Sodium Potassium 3.3 L Chloride 108.7 H Carbon Dioxide 20 L BUN 8 L Creatinine Glucose 202 H POC Glucose 258 H Lactic Acid Calcium 7.6 L AST Alkaline Phosphatase CK-MB (CK-2) CK-MB (CK-2) Rel Index Albumin TSH Urine WBC (Auto) Salicylates 01/17/17 01/17/17 01/17/17 04:35 12:23 16:01 WBC RBC Hgb Hct MCV MCH RDW Plt Count Lymph % (Auto) [place] % (Auto) Eos % (Auto) Seg Neutrophils % Seg Neuts % (Manual) Lymphocytes % (Manual) Seg Neutrophils # Seg Neutrophils # Man Lymphocytes # (Manual) APTT POC ABG pH ABG pH POC ABG pCO2 POC ABG pO2 ABG pO2 160.3 H ABG HCO3 ABG Base Excess -2.3 L ABG Hemoglobin 7.9 L VBG pH Oxyhemoglobin Sodium Potassium Chloride Carbon Dioxide BUN Creatinine Glucose POC Glucose 321 H 239 H Lactic Acid Calcium AST Alkaline Phosphatase CK-MB (CK-2) CK-MB (CK-2) Rel Index Albumin TSH Urine WBC (Auto) Salicylates 01/18/17 01/18/17 01/18/17 05:07 12:09 17:54 WBC RBC Hgb Hct MCV MCH RDW Plt Count Lymph % (Auto) [place] % (Auto) Eos % (Auto) Seg Neutrophils % Seg Neuts % (Manual) Lymphocytes % (Manual) Seg Neutrophils # Seg Neutrophils # Man Lymphocytes # (Manual) APTT POC ABG pH ABG pH POC ABG pCO2 POC ABG pO2 ABG pO2 ABG HCO3 ABG Base Excess ABG Hemoglobin VBG pH Oxyhemoglobin Sodium Potassium Chloride Carbon Dioxide BUN Creatinine Glucose POC Glucose 155 H 203 H 132 H Lactic Acid Calcium AST Alkaline Phosphatase CK-MB (CK-2) CK-MB (CK-2) Rel Index Albumin TSH Urine WBC (Auto) Salicylates 01/18/17 01/19/17 01/19/17 23:43 04:28 12:11 WBC RBC Hgb Hct MCV MCH RDW Plt Count Lymph % (Auto) [place] % (Auto) Eos % (Auto) Seg Neutrophils % Seg Neuts % (Manual) Lymphocytes % (Manual) Seg Neutrophils # Seg Neutrophils # Man Lymphocytes # (Manual) APTT POC ABG pH ABG pH POC ABG pCO2 POC ABG pO2 ABG pO2 ABG HCO3 ABG Base Excess ABG Hemoglobin VBG pH Oxyhemoglobin Sodium Potassium Chloride Carbon Dioxide BUN Creatinine Glucose POC Glucose 125 H 182 H 153 H Lactic Acid Calcium AST Alkaline Phosphatase CK-MB (CK-2) CK-MB (CK-2) Rel Index Albumin TSH Urine WBC (Auto) Salicylates 01/19/17 01/20/17 01/20/17 17:23 00:12 05:44 WBC RBC Hgb Hct MCV MCH RDW Plt Count Lymph % (Auto) [place] % (Auto) Eos % (Auto) Seg Neutrophils % Seg Neuts % (Manual) Lymphocytes % (Manual) Seg Neutrophils # Seg Neutrophils # Man Lymphocytes # (Manual) APTT POC ABG pH ABG pH POC ABG pCO2 POC ABG pO2 ABG pO2 ABG HCO3 ABG Base Excess ABG Hemoglobin VBG pH Oxyhemoglobin Sodium Potassium Chloride Carbon Dioxide BUN Creatinine Glucose POC Glucose 66 L 139 H 176 H Lactic Acid Calcium AST Alkaline Phosphatase CK-MB (CK-2) CK-MB (CK-2) Rel Index Albumin TSH Urine WBC (Auto) Salicylates 01/20/17 01/20/17 01/20/17 11:48 17:42 23:43 WBC RBC Hgb Hct MCV MCH RDW Plt Count Lymph % (Auto) [place] % (Auto) Eos % (Auto) Seg Neutrophils % Seg Neuts % (Manual) Lymphocytes % (Manual) Seg Neutrophils # Seg Neutrophils # Man Lymphocytes # (Manual) APTT POC ABG pH ABG pH POC ABG pCO2 POC ABG pO2 ABG pO2 ABG HCO3 ABG Base Excess ABG Hemoglobin VBG pH Oxyhemoglobin Sodium Potassium Chloride Carbon Dioxide BUN Creatinine Glucose POC Glucose 218 H 132 H 178 H Lactic Acid Calcium AST Alkaline Phosphatase CK-MB (CK-2) CK-MB (CK-2) Rel Index Albumin TSH Urine WBC (Auto) Salicylates 01/21/17 01/21/17 01/21/17 05:34 11:17 23:37 WBC RBC Hgb Hct MCV MCH RDW Plt Count Lymph % (Auto) [place] % (Auto) Eos % (Auto) Seg Neutrophils % Seg Neuts % (Manual) Lymphocytes % (Manual) Seg Neutrophils # Seg Neutrophils # Man Lymphocytes # (Manual) APTT POC ABG pH ABG pH POC ABG pCO2 POC ABG pO2 ABG pO2 ABG HCO3 ABG Base Excess ABG Hemoglobin VBG pH Oxyhemoglobin Sodium Potassium Chloride Carbon Dioxide BUN Creatinine Glucose POC Glucose 106 H 213 H 140 H Lactic Acid Calcium AST Alkaline Phosphatase CK-MB (CK-2) CK-MB (CK-2) Rel Index Albumin TSH Urine WBC (Auto) Salicylates 01/22/17 01/22/17 01/22/17 04:00 04:00 04:58 WBC RBC 3.26 L Hgb 8.3 L Hct 25.5 L MCV 78 L MCH 25 L RDW 17.9 H Plt Count Lymph % (Auto) [place] % (Auto) 7.9 H Eos % (Auto) 6.2 H Seg Neutrophils % Seg Neuts % (Manual) Lymphocytes % (Manual) Seg Neutrophils # Seg Neutrophils # Man Lymphocytes # (Manual) APTT POC ABG pH ABG pH POC ABG pCO2 POC ABG pO2 ABG pO2 ABG HCO3 ABG Base Excess ABG Hemoglobin VBG pH Oxyhemoglobin Sodium Potassium Chloride 95.5 L Carbon Dioxide 31 H D BUN Creatinine Glucose 134 H POC Glucose 146 H Lactic Acid Calcium AST 44 H Alkaline Phosphatase 379 H CK-MB (CK-2) CK-MB (CK-2) Rel Index Albumin 2.7 L TSH Urine WBC (Auto) Salicylates 01/22/17 01/22/17 01/22/17 12:12 18:12 23:39 WBC RBC Hgb Hct MCV MCH RDW Plt Count Lymph % (Auto) [place] % (Auto) Eos % (Auto) Seg Neutrophils % Seg Neuts % (Manual) Lymphocytes % (Manual) Seg Neutrophils # Seg Neutrophils # Man Lymphocytes # (Manual) APTT POC ABG pH ABG pH POC ABG pCO2 POC ABG pO2 ABG pO2 ABG HCO3 ABG Base Excess ABG Hemoglobin VBG pH Oxyhemoglobin Sodium Potassium Chloride Carbon Dioxide BUN Creatinine Glucose POC Glucose 255 H 182 H 134 H Lactic Acid Calcium AST Alkaline Phosphatase CK-MB (CK-2) CK-MB (CK-2) Rel Index Albumin TSH Urine WBC (Auto) Salicylates 01/23/17 01/23/17 01/23/17 04:43 12:12 17:36 WBC RBC Hgb Hct MCV MCH RDW Plt Count Lymph % (Auto) [place] % (Auto) Eos % (Auto) Seg Neutrophils % Seg Neuts % (Manual) Lymphocytes % (Manual) Seg Neutrophils # Seg Neutrophils # Man Lymphocytes # (Manual) APTT POC ABG pH ABG pH POC ABG pCO2 POC ABG pO2 ABG pO2 ABG HCO3 ABG Base Excess ABG Hemoglobin VBG pH Oxyhemoglobin Sodium Potassium Chloride Carbon Dioxide BUN Creatinine Glucose POC Glucose 218 H 128 H 156 H Lactic Acid Calcium AST Alkaline Phosphatase CK-MB (CK-2) CK-MB (CK-2) Rel Index Albumin TSH Urine WBC (Auto) Salicylates 01/24/17 01/24/17 01/24/17 00:08 05:16 11:40 WBC RBC Hgb Hct MCV MCH RDW Plt Count Lymph % (Auto) [place] % (Auto) Eos % (Auto) Seg Neutrophils % Seg Neuts % (Manual) Lymphocytes % (Manual) Seg Neutrophils # Seg Neutrophils # Man Lymphocytes # (Manual) APTT POC ABG pH ABG pH POC ABG pCO2 POC ABG pO2 ABG pO2 ABG HCO3 ABG Base Excess ABG Hemoglobin VBG pH Oxyhemoglobin Sodium Potassium Chloride Carbon Dioxide BUN Creatinine Glucose POC Glucose 129 H 169 H 187 H Lactic Acid Calcium AST Alkaline Phosphatase CK-MB (CK-2) CK-MB (CK-2) Rel Index Albumin TSH Urine WBC (Auto) Salicylates 01/24/17 01/24/17 01/25/17 17:43 23:23 04:56 WBC RBC Hgb Hct MCV MCH RDW Plt Count Lymph % (Auto) [place] % (Auto) Eos % (Auto) Seg Neutrophils % Seg Neuts % (Manual) Lymphocytes % (Manual) Seg Neutrophils # Seg Neutrophils # Man Lymphocytes # (Manual) APTT POC ABG pH ABG pH POC ABG pCO2 POC ABG pO2 ABG pO2 ABG HCO3 ABG Base Excess ABG Hemoglobin VBG pH Oxyhemoglobin Sodium Potassium Chloride Carbon Dioxide BUN Creatinine Glucose POC Glucose 215 H 222 H 210 H Lactic Acid Calcium AST Alkaline Phosphatase CK-MB (CK-2) CK-MB (CK-2) Rel Index Albumin TSH Urine WBC (Auto) Salicylates 01/25/17 01/25/17 01/26/17 11:52 17:37 00:02 WBC RBC Hgb Hct MCV MCH RDW Plt Count Lymph % (Auto) [place] % (Auto) Eos % (Auto) Seg Neutrophils % Seg Neuts % (Manual) Lymphocytes % (Manual) Seg Neutrophils # Seg Neutrophils # Man Lymphocytes # (Manual) APTT POC ABG pH ABG pH POC ABG pCO2 POC ABG pO2 ABG pO2 ABG HCO3 ABG Base Excess ABG Hemoglobin VBG pH Oxyhemoglobin Sodium Potassium Chloride Carbon Dioxide BUN Creatinine Glucose POC Glucose 284 H 218 H 192 H Lactic Acid Calcium AST Alkaline Phosphatase CK-MB (CK-2) CK-MB (CK-2) Rel Index Albumin TSH Urine WBC (Auto) Salicylates 01/26/17 01/26/17 01/26/17 05:33 12:17 17:50 WBC RBC Hgb Hct MCV MCH RDW Plt Count Lymph % (Auto) [place] % (Auto) Eos % (Auto) Seg Neutrophils % Seg Neuts % (Manual) Lymphocytes % (Manual) Seg Neutrophils # Seg Neutrophils # Man Lymphocytes # (Manual) APTT POC ABG pH ABG pH POC ABG pCO2 POC ABG pO2 ABG pO2 ABG HCO3 ABG Base Excess ABG Hemoglobin VBG pH Oxyhemoglobin Sodium Potassium Chloride Carbon Dioxide BUN Creatinine Glucose POC Glucose 199 H 227 H 229 H Lactic Acid Calcium AST Alkaline Phosphatase CK-MB (CK-2) CK-MB (CK-2) Rel Index Albumin TSH Urine WBC (Auto) Salicylates 01/26/17 01/27/17 01/27/17 23:57 05:31 11:42 WBC RBC Hgb Hct MCV MCH RDW Plt Count Lymph % (Auto) [place] % (Auto) Eos % (Auto) Seg Neutrophils % Seg Neuts % (Manual) Lymphocytes % (Manual) Seg Neutrophils # Seg Neutrophils # Man Lymphocytes # (Manual) APTT POC ABG pH ABG pH POC ABG pCO2 POC ABG pO2 ABG pO2 ABG HCO3 ABG Base Excess ABG Hemoglobin VBG pH Oxyhemoglobin Sodium Potassium Chloride Carbon Dioxide BUN Creatinine Glucose POC Glucose 186 H 285 H 260 H Lactic Acid Calcium AST Alkaline Phosphatase CK-MB (CK-2) CK-MB (CK-2) Rel Index Albumin TSH Urine WBC (Auto) Salicylates 01/27/17 01/27/17 01/27/17 17:47 23:58 Unknown WBC 12.1 H RBC 3.28 L Hgb 8.5 L Hct 25.5 L MCV 78 L MCH 26 L RDW 16.8 H Plt Count 601 H Lymph % (Auto) [place] % (Auto) Eos % (Auto) Seg Neutrophils % Seg Neuts % (Manual) Lymphocytes % (Manual) Seg Neutrophils # Seg Neutrophils # Man Lymphocytes # (Manual) APTT POC ABG pH ABG pH POC ABG pCO2 POC ABG pO2 ABG pO2 ABG HCO3 ABG Base Excess ABG Hemoglobin VBG pH Oxyhemoglobin Sodium Potassium Chloride Carbon Dioxide BUN Creatinine Glucose POC Glucose 329 H 225 H Lactic Acid Calcium AST Alkaline Phosphatase CK-MB (CK-2) CK-MB (CK-2) Rel Index Albumin TSH Urine WBC (Auto) Salicylates 01/27/17 01/28/17 01/28/17 Unknown 03:44 03:44 WBC RBC 3.14 L Hgb 8.2 L Hct 24.1 L MCV 77 L MCH 26 L RDW 16.9 H Plt Count 567 H Lymph % (Auto) [place] % (Auto) Eos % (Auto) Seg Neutrophils % Seg Neuts % (Manual) Lymphocytes % (Manual) Seg Neutrophils # Seg Neutrophils # Man Lymphocytes # (Manual) APTT POC ABG pH ABG pH POC ABG pCO2 POC ABG pO2 ABG pO2 ABG HCO3 ABG Base Excess ABG Hemoglobin VBG pH Oxyhemoglobin Sodium 128 L Potassium 5.4 H Chloride 87.5 L Carbon Dioxide BUN 44 H 42 H Creatinine Glucose 250 H 128 H POC Glucose Lactic Acid Calcium AST Alkaline Phosphatase CK-MB (CK-2) CK-MB (CK-2) Rel Index Albumin TSH Urine WBC (Auto) Salicylates 01/28/17 01/28/17 01/28/17 11:43 16:47 17:52 WBC RBC Hgb Hct MCV MCH RDW Plt Count Lymph % (Auto) [place] % (Auto) Eos % (Auto) Seg Neutrophils % Seg Neuts % (Manual) Lymphocytes % (Manual) Seg Neutrophils # Seg Neutrophils # Man Lymphocytes # (Manual) APTT POC ABG pH ABG pH POC ABG pCO2 POC ABG pO2 ABG pO2 ABG HCO3 ABG Base Excess ABG Hemoglobin VBG pH Oxyhemoglobin Sodium Potassium Chloride Carbon Dioxide BUN Creatinine Glucose POC Glucose 351 H 249 H Lactic Acid Calcium AST Alkaline Phosphatase CK-MB (CK-2) CK-MB (CK-2) Rel Index Albumin TSH Urine WBC (Auto) > 182.0 H Salicylates 01/29/17 01/29/17 01/29/17 05:25 05:25 09:32 WBC 13.6 H RBC 3.25 L Hgb 8.3 L Hct 25.1 L MCV 77 L MCH 26 L RDW 16.8 H Plt Count 514 H Lymph % (Auto) [place] % (Auto) Eos % (Auto) Seg Neutrophils % Seg Neuts % (Manual) Lymphocytes % (Manual) Seg Neutrophils # Seg Neutrophils # Man Lymphocytes # (Manual) APTT POC ABG pH ABG pH POC ABG pCO2 POC ABG pO2 ABG pO2 ABG HCO3 ABG Base Excess ABG Hemoglobin VBG pH Oxyhemoglobin Sodium Potassium Chloride 97.8 L Carbon Dioxide BUN 34 H Creatinine Glucose 222 H POC Glucose Lactic Acid 2.50 H* Calcium AST Alkaline Phosphatase CK-MB (CK-2) CK-MB (CK-2) Rel Index Albumin TSH Urine WBC (Auto) Salicylates 01/29/17 01/29/17 01/29/17 11:56 18:11 23:55 WBC RBC Hgb Hct MCV MCH RDW Plt Count Lymph % (Auto) [place] % (Auto) Eos % (Auto) Seg Neutrophils % Seg Neuts % (Manual) Lymphocytes % (Manual) Seg Neutrophils # Seg Neutrophils # Man Lymphocytes # (Manual) APTT POC ABG pH ABG pH POC ABG pCO2 POC ABG pO2 ABG pO2 ABG HCO3 ABG Base Excess ABG Hemoglobin VBG pH Oxyhemoglobin Sodium Potassium Chloride Carbon Dioxide BUN Creatinine Glucose POC Glucose 261 H 215 H 176 H Lactic Acid Calcium AST Alkaline Phosphatase CK-MB (CK-2) CK-MB (CK-2) Rel Index Albumin TSH Urine WBC (Auto) Salicylates 01/30/17 01/30/17 01/30/17 05:31 05:31 05:34 WBC 15.2 H RBC 3.09 L Hgb 7.9 L Hct 23.9 L MCV 77 L MCH 26 L RDW 16.9 H Plt Count 569 H Lymph % (Auto) [place] % (Auto) Eos % (Auto) Seg Neutrophils % Seg Neuts % (Manual) Lymphocytes % (Manual) Seg Neutrophils # Seg Neutrophils # Man Lymphocytes # (Manual) APTT POC ABG pH ABG pH POC ABG pCO2 POC ABG pO2 ABG pO2 ABG HCO3 ABG Base Excess ABG Hemoglobin VBG pH Oxyhemoglobin Sodium Potassium Chloride Carbon Dioxide BUN 24 H Creatinine Glucose 235 H POC Glucose 243 H Lactic Acid Calcium AST Alkaline Phosphatase CK-MB (CK-2) CK-MB (CK-2) Rel Index Albumin TSH Urine WBC (Auto) Salicylates 01/30/17 01/30/17 01/30/17 11:38 17:58 23:29 WBC RBC Hgb Hct MCV MCH RDW Plt Count Lymph % (Auto) [place] % (Auto) Eos % (Auto) Seg Neutrophils % Seg Neuts % (Manual) Lymphocytes % (Manual) Seg Neutrophils # Seg Neutrophils # Man Lymphocytes # (Manual) APTT POC ABG pH ABG pH POC ABG pCO2 POC ABG pO2 ABG pO2 ABG HCO3 ABG Base Excess ABG Hemoglobin VBG pH Oxyhemoglobin Sodium Potassium Chloride Carbon Dioxide BUN Creatinine Glucose POC Glucose 298 H 208 H 245 H Lactic Acid Calcium AST Alkaline Phosphatase CK-MB (CK-2) CK-MB (CK-2) Rel Index Albumin TSH Urine WBC (Auto) Salicylates 01/31/17 01/31/17 01/31/17 04:39 04:39 05:57 WBC 11.4 H RBC 3.22 L Hgb 8.2 L Hct 24.9 L MCV 78 L MCH 25 L RDW 17.2 H Plt Count 576 H Lymph % (Auto) [place] % (Auto) Eos % (Auto) Seg Neutrophils % Seg Neuts % (Manual) Lymphocytes % (Manual) Seg Neutrophils # Seg Neutrophils # Man Lymphocytes # (Manual) APTT POC ABG pH ABG pH POC ABG pCO2 POC ABG pO2 ABG pO2 ABG HCO3 ABG Base Excess ABG Hemoglobin VBG pH Oxyhemoglobin Sodium Potassium Chloride Carbon Dioxide BUN Creatinine 0.7 L Glucose 223 H POC Glucose 264 H Lactic Acid Calcium AST Alkaline Phosphatase CK-MB (CK-2) CK-MB (CK-2) Rel Index Albumin TSH Urine WBC (Auto) Salicylates 01/31/17 01/31/17 01/31/17 12:23 17:41 18:55 WBC RBC Hgb Hct MCV MCH RDW Plt Count Lymph % (Auto) [place] % (Auto) Eos % (Auto) Seg Neutrophils % Seg Neuts % (Manual) Lymphocytes % (Manual) Seg Neutrophils # Seg Neutrophils # Man Lymphocytes # (Manual) APTT POC ABG pH ABG pH POC ABG pCO2 32.8 L POC ABG pO2 ABG pO2 ABG HCO3 ABG Base Excess ABG Hemoglobin VBG pH Oxyhemoglobin Sodium Potassium Chloride Carbon Dioxide BUN Creatinine Glucose POC Glucose 252 H 208 H Lactic Acid Calcium AST Alkaline Phosphatase CK-MB (CK-2) CK-MB (CK-2) Rel Index Albumin TSH Urine WBC (Auto) Salicylates 01/31/17 02/01/17 02/01/17 22:59 03:38 03:38 WBC RBC 2.81 L Hgb 7.4 L Hct 22.1 L MCV 79 L MCH 27 L RDW 17.0 H Plt Count 540 H Lymph % (Auto) [place] % (Auto) Eos % (Auto) Seg Neutrophils % Seg Neuts % (Manual) Lymphocytes % (Manual) Seg Neutrophils # Seg Neutrophils # Man Lymphocytes # (Manual) APTT POC ABG pH ABG pH POC ABG pCO2 POC ABG pO2 ABG pO2 ABG HCO3 ABG Base Excess ABG Hemoglobin VBG pH Oxyhemoglobin Sodium Potassium Chloride Carbon Dioxide 21 L BUN Creatinine 0.7 L Glucose POC Glucose 40 L Lactic Acid Calcium AST Alkaline Phosphatase CK-MB (CK-2) CK-MB (CK-2) Rel Index Albumin TSH Urine WBC (Auto) Salicylates 02/01/17 02/01/17 02/01/17 05:17 12:19 16:44 WBC RBC Hgb Hct MCV MCH RDW Plt Count Lymph % (Auto) [place] % (Auto) Eos % (Auto) Seg Neutrophils % Seg Neuts % (Manual) Lymphocytes % (Manual) Seg Neutrophils # Seg Neutrophils # Man Lymphocytes # (Manual) APTT POC ABG pH ABG pH POC ABG pCO2 POC ABG pO2 ABG pO2 ABG HCO3 ABG Base Excess ABG Hemoglobin VBG pH Oxyhemoglobin Sodium Potassium Chloride Carbon Dioxide BUN Creatinine Glucose POC Glucose 140 H 213 H 172 H Lactic Acid Calcium AST Alkaline Phosphatase CK-MB (CK-2) CK-MB (CK-2) Rel Index Albumin TSH Urine WBC (Auto) Salicylates 02/01/17 02/02/17 02/02/17 23:59 05:14 11:24 WBC RBC Hgb Hct MCV MCH RDW Plt Count Lymph % (Auto) [place] % (Auto) Eos % (Auto) Seg Neutrophils % Seg Neuts % (Manual) Lymphocytes % (Manual) Seg Neutrophils # Seg Neutrophils # Man Lymphocytes # (Manual) APTT POC ABG pH ABG pH POC ABG pCO2 POC ABG pO2 ABG pO2 ABG HCO3 ABG Base Excess ABG Hemoglobin VBG pH Oxyhemoglobin Sodium Potassium Chloride Carbon Dioxide BUN Creatinine Glucose POC Glucose 181 H 194 H 209 H Lactic Acid Calcium AST Alkaline Phosphatase CK-MB (CK-2) CK-MB (CK-2) Rel Index Albumin TSH Urine WBC (Auto) Salicylates 02/02/17 02/02/17 02/02/17 11:46 11:46 17:47 WBC RBC 2.94 L Hgb 7.5 L Hct 23.0 L MCV 78 L MCH 25 L RDW 16.9 H Plt Count 520 H Lymph % (Auto) [place] % (Auto) Eos % (Auto) Seg Neutrophils % Seg Neuts % (Manual) Lymphocytes % (Manual) Seg Neutrophils # Seg Neutrophils # Man Lymphocytes # (Manual) APTT POC ABG pH ABG pH POC ABG pCO2 POC ABG pO2 ABG pO2 ABG HCO3 ABG Base Excess ABG Hemoglobin VBG pH Oxyhemoglobin Sodium Potassium Chloride Carbon Dioxide BUN Creatinine 0.6 L Glucose 189 H POC Glucose 147 H Lactic Acid Calcium 8.1 L AST Alkaline Phosphatase CK-MB (CK-2) CK-MB (CK-2) Rel Index Albumin TSH Urine WBC (Auto) Salicylates 02/02/17 02/03/17 02/03/17 23:32 05:53 11:19 WBC RBC Hgb Hct MCV MCH RDW Plt Count Lymph % (Auto) [place] % (Auto) Eos % (Auto) Seg Neutrophils % Seg Neuts % (Manual) Lymphocytes % (Manual) Seg Neutrophils # Seg Neutrophils # Man Lymphocytes # (Manual) APTT POC ABG pH ABG pH POC ABG pCO2 POC ABG pO2 ABG pO2 ABG HCO3 ABG Base Excess ABG Hemoglobin VBG pH Oxyhemoglobin Sodium Potassium Chloride Carbon Dioxide BUN Creatinine Glucose POC Glucose 176 H 224 H 228 H Lactic Acid Calcium AST Alkaline Phosphatase CK-MB (CK-2) CK-MB (CK-2) Rel Index Albumin TSH Urine WBC (Auto) Salicylates 02/03/17 02/03/17 02/04/17 16:59 23:38 05:45 WBC RBC Hgb Hct MCV MCH RDW Plt Count Lymph % (Auto) [place] % (Auto) Eos % (Auto) Seg Neutrophils % Seg Neuts % (Manual) Lymphocytes % (Manual) Seg Neutrophils # Seg Neutrophils # Man Lymphocytes # (Manual) APTT POC ABG pH ABG pH POC ABG pCO2 POC ABG pO2 ABG pO2 ABG HCO3 ABG Base Excess ABG Hemoglobin VBG pH Oxyhemoglobin Sodium Potassium Chloride Carbon Dioxide BUN Creatinine Glucose POC Glucose 189 H 191 H 251 H Lactic Acid Calcium AST Alkaline Phosphatase CK-MB (CK-2) CK-MB (CK-2) Rel Index Albumin TSH Urine WBC (Auto) Salicylates 02/04/17 02/04/17 02/05/17 11:20 17:20 00:17 WBC RBC Hgb Hct MCV MCH RDW Plt Count Lymph % (Auto) [place] % (Auto) Eos % (Auto) Seg Neutrophils % Seg Neuts % (Manual) Lymphocytes % (Manual) Seg Neutrophils # Seg Neutrophils # Man Lymphocytes # (Manual) APTT POC ABG pH ABG pH POC ABG pCO2 POC ABG pO2 ABG pO2 ABG HCO3 ABG Base Excess ABG Hemoglobin VBG pH Oxyhemoglobin Sodium Potassium Chloride Carbon Dioxide BUN Creatinine Glucose POC Glucose 243 H 163 H 200 H Lactic Acid Calcium AST Alkaline Phosphatase CK-MB (CK-2) CK-MB (CK-2) Rel Index Albumin TSH Urine WBC (Auto) Salicylates 02/05/17 02/05/17 02/05/17 05:38 12:38 16:29 WBC RBC Hgb Hct MCV MCH RDW Plt Count Lymph % (Auto) [place] % (Auto) Eos % (Auto) Seg Neutrophils % Seg Neuts % (Manual) Lymphocytes % (Manual) Seg Neutrophils # Seg Neutrophils # Man Lymphocytes # (Manual) APTT POC ABG pH ABG pH POC ABG pCO2 POC ABG pO2 ABG pO2 ABG HCO3 ABG Base Excess ABG Hemoglobin VBG pH Oxyhemoglobin Sodium Potassium Chloride Carbon Dioxide BUN Creatinine Glucose POC Glucose 248 H 241 H 257 H Lactic Acid Calcium AST Alkaline Phosphatase CK-MB (CK-2) CK-MB (CK-2) Rel Index Albumin TSH Urine WBC (Auto) Salicylates 02/05/17 02/06/17 02/06/17 23:56 05:30 11:50 WBC RBC Hgb Hct MCV MCH RDW Plt Count Lymph % (Auto) [place] % (Auto) Eos % (Auto) Seg Neutrophils % Seg Neuts % (Manual) Lymphocytes % (Manual) Seg Neutrophils # Seg Neutrophils # Man Lymphocytes # (Manual) APTT POC ABG pH ABG pH POC ABG pCO2 POC ABG pO2 ABG pO2 ABG HCO3 ABG Base Excess ABG Hemoglobin VBG pH Oxyhemoglobin Sodium Potassium Chloride Carbon Dioxide BUN Creatinine Glucose POC Glucose 258 H 120 H 254 H Lactic Acid Calcium AST Alkaline Phosphatase CK-MB (CK-2) CK-MB (CK-2) Rel Index Albumin TSH Urine WBC (Auto) Salicylates 02/06/17 02/06/17 02/07/17 17:11 23:50 05:22 WBC RBC Hgb Hct MCV MCH RDW Plt Count Lymph % (Auto) [place] % (Auto) Eos % (Auto) Seg Neutrophils % Seg Neuts % (Manual) Lymphocytes % (Manual) Seg Neutrophils # Seg Neutrophils # Man Lymphocytes # (Manual) APTT POC ABG pH ABG pH POC ABG pCO2 POC ABG pO2 ABG pO2 ABG HCO3 ABG Base Excess ABG Hemoglobin VBG pH Oxyhemoglobin Sodium Potassium Chloride Carbon Dioxide BUN Creatinine Glucose POC Glucose 149 H 240 H 258 H Lactic Acid Calcium AST Alkaline Phosphatase CK-MB (CK-2) CK-MB (CK-2) Rel Index Albumin TSH Urine WBC (Auto) Salicylates 02/07/17 02/07/17 02/07/17 11:15 18:33 23:59 WBC RBC Hgb Hct MCV MCH RDW Plt Count Lymph % (Auto) [place] % (Auto) Eos % (Auto) Seg Neutrophils % Seg Neuts % (Manual) Lymphocytes % (Manual) Seg Neutrophils # Seg Neutrophils # Man Lymphocytes # (Manual) APTT POC ABG pH ABG pH POC ABG pCO2 POC ABG pO2 ABG pO2 ABG HCO3 ABG Base Excess ABG Hemoglobin VBG pH Oxyhemoglobin Sodium Potassium Chloride Carbon Dioxide BUN Creatinine Glucose POC Glucose 239 H 176 H 186 H Lactic Acid Calcium AST Alkaline Phosphatase CK-MB (CK-2) CK-MB (CK-2) Rel Index Albumin TSH Urine WBC (Auto) Salicylates 02/08/17 02/08/17 02/08/17 06:15 11:55 16:55 WBC RBC Hgb Hct MCV MCH RDW Plt Count Lymph % (Auto) [place] % (Auto) Eos % (Auto) Seg Neutrophils % Seg Neuts % (Manual) Lymphocytes % (Manual) Seg Neutrophils # Seg Neutrophils # Man Lymphocytes # (Manual) APTT POC ABG pH ABG pH POC ABG pCO2 POC ABG pO2 ABG pO2 ABG HCO3 ABG Base Excess ABG Hemoglobin VBG pH Oxyhemoglobin Sodium Potassium Chloride Carbon Dioxide BUN Creatinine Glucose POC Glucose 195 H 129 H 246 H Lactic Acid Calcium AST Alkaline Phosphatase CK-MB (CK-2) CK-MB (CK-2) Rel Index Albumin TSH Urine WBC (Auto) Salicylates 02/08/17 02/09/17 02/09/17 23:51 05:51 07:24 WBC 14.7 H RBC 3.39 L Hgb 8.9 L Hct 26.4 L MCV 78 L MCH 26 L RDW 18.4 H Plt Count 670 H Lymph % (Auto) 11.8 L [place] % (Auto) Eos % (Auto) Seg Neutrophils % 81.2 H Seg Neuts % (Manual) Lymphocytes % (Manual) Seg Neutrophils # 11.9 H Seg Neutrophils # Man Lymphocytes # (Manual) APTT POC ABG pH ABG pH POC ABG pCO2 POC ABG pO2 ABG pO2 ABG HCO3 ABG Base Excess ABG Hemoglobin VBG pH Oxyhemoglobin Sodium Potassium Chloride Carbon Dioxide BUN Creatinine Glucose POC Glucose 262 H 295 H Lactic Acid Calcium AST Alkaline Phosphatase CK-MB (CK-2) CK-MB (CK-2) Rel Index Albumin TSH Urine WBC (Auto) Salicylates 02/09/17 02/09/17 02/09/17 07:24 12:08 18:39 WBC RBC Hgb Hct MCV MCH RDW Plt Count Lymph % (Auto) [place] % (Auto) Eos % (Auto) Seg Neutrophils % Seg Neuts % (Manual) Lymphocytes % (Manual) Seg Neutrophils # Seg Neutrophils # Man Lymphocytes # (Manual) APTT POC ABG pH ABG pH POC ABG pCO2 POC ABG pO2 ABG pO2 ABG HCO3 ABG Base Excess ABG Hemoglobin VBG pH Oxyhemoglobin Sodium Potassium Chloride 95.5 L Carbon Dioxide BUN 52 H Creatinine Glucose 277 H POC Glucose 236 H 151 H Lactic Acid Calcium AST Alkaline Phosphatase CK-MB (CK-2) CK-MB (CK-2) Rel Index Albumin TSH Urine WBC (Auto) Salicylates 02/10/17 02/10/17 02/10/17 00:01 05:44 11:21 WBC RBC Hgb Hct MCV MCH RDW Plt Count Lymph % (Auto) [place] % (Auto) Eos % (Auto) Seg Neutrophils % Seg Neuts % (Manual) Lymphocytes % (Manual) Seg Neutrophils # Seg Neutrophils # Man Lymphocytes # (Manual) APTT POC ABG pH ABG pH POC ABG pCO2 POC ABG pO2 ABG pO2 ABG HCO3 ABG Base Excess ABG Hemoglobin VBG pH Oxyhemoglobin Sodium Potassium Chloride Carbon Dioxide BUN Creatinine Glucose POC Glucose 210 H 201 H 233 H Lactic Acid Calcium AST Alkaline Phosphatase CK-MB (CK-2) CK-MB (CK-2) Rel Index Albumin TSH Urine WBC (Auto) Salicylates 02/10/17 02/10/17 02/11/17 17:29 23:56 05:24 WBC RBC Hgb Hct MCV MCH RDW Plt Count Lymph % (Auto) [place] % (Auto) Eos % (Auto) Seg Neutrophils % Seg Neuts % (Manual) Lymphocytes % (Manual) Seg Neutrophils # Seg Neutrophils # Man Lymphocytes # (Manual) APTT POC ABG pH ABG pH POC ABG pCO2 POC ABG pO2 ABG pO2 ABG HCO3 ABG Base Excess ABG Hemoglobin VBG pH Oxyhemoglobin Sodium Potassium Chloride Carbon Dioxide BUN Creatinine Glucose POC Glucose 167 H 191 H 135 H Lactic Acid Calcium AST Alkaline Phosphatase CK-MB (CK-2) CK-MB (CK-2) Rel Index Albumin TSH Urine WBC (Auto) Salicylates 02/11/17 02/11/17 02/11/17 12:25 17:03 23:59 WBC RBC Hgb Hct MCV MCH RDW Plt Count Lymph % (Auto) [place] % (Auto) Eos % (Auto) Seg Neutrophils % Seg Neuts % (Manual) Lymphocytes % (Manual) Seg Neutrophils # Seg Neutrophils # Man Lymphocytes # (Manual) APTT POC ABG pH ABG pH POC ABG pCO2 POC ABG pO2 ABG pO2 ABG HCO3 ABG Base Excess ABG Hemoglobin VBG pH Oxyhemoglobin Sodium Potassium Chloride Carbon Dioxide BUN Creatinine Glucose POC Glucose 275 H 172 H 215 H Lactic Acid Calcium AST Alkaline Phosphatase CK-MB (CK-2) CK-MB (CK-2) Rel Index Albumin TSH Urine WBC (Auto) Salicylates 02/12/17 02/12/17 02/12/17 05:39 11:33 17:55 WBC RBC Hgb Hct MCV MCH RDW Plt Count Lymph % (Auto) [place] % (Auto) Eos % (Auto) Seg Neutrophils % Seg Neuts % (Manual) Lymphocytes % (Manual) Seg Neutrophils # Seg Neutrophils # Man Lymphocytes # (Manual) APTT POC ABG pH ABG pH POC ABG pCO2 POC ABG pO2 ABG pO2 ABG HCO3 ABG Base Excess ABG Hemoglobin VBG pH Oxyhemoglobin Sodium Potassium Chloride Carbon Dioxide BUN Creatinine Glucose POC Glucose 261 H 217 H 172 H Lactic Acid Calcium AST Alkaline Phosphatase CK-MB (CK-2) CK-MB (CK-2) Rel Index Albumin TSH Urine WBC (Auto) Salicylates 02/13/17 02/13/17 02/13/17 00:25 06:46 11:26 WBC RBC Hgb Hct MCV MCH RDW Plt Count Lymph % (Auto) [place] % (Auto) Eos % (Auto) Seg Neutrophils % Seg Neuts % (Manual) Lymphocytes % (Manual) Seg Neutrophils # Seg Neutrophils # Man Lymphocytes # (Manual) APTT POC ABG pH ABG pH POC ABG pCO2 POC ABG pO2 ABG pO2 ABG HCO3 ABG Base Excess ABG Hemoglobin VBG pH Oxyhemoglobin Sodium Potassium Chloride Carbon Dioxide BUN Creatinine Glucose POC Glucose 207 H 219 H 231 H Lactic Acid Calcium AST Alkaline Phosphatase CK-MB (CK-2) CK-MB (CK-2) Rel Index Albumin TSH Urine WBC (Auto) Salicylates 02/13/17 02/13/17 02/14/17 17:12 23:44 05:44 WBC RBC Hgb Hct MCV MCH RDW Plt Count Lymph % (Auto) [place] % (Auto) Eos % (Auto) Seg Neutrophils % Seg Neuts % (Manual) Lymphocytes % (Manual) Seg Neutrophils # Seg Neutrophils # Man Lymphocytes # (Manual) APTT POC ABG pH ABG pH POC ABG pCO2 POC ABG pO2 ABG pO2 ABG HCO3 ABG Base Excess ABG Hemoglobin VBG pH Oxyhemoglobin Sodium Potassium Chloride Carbon Dioxide BUN Creatinine Glucose POC Glucose 190 H 256 H 184 H Lactic Acid Calcium AST Alkaline Phosphatase CK-MB (CK-2) CK-MB (CK-2) Rel Index Albumin TSH Urine WBC (Auto) Salicylates 02/14/17 02/14/17 02/14/17 12:21 17:57 23:18 WBC RBC Hgb Hct MCV MCH RDW Plt Count Lymph % (Auto) [place] % (Auto) Eos % (Auto) Seg Neutrophils % Seg Neuts % (Manual) Lymphocytes % (Manual) Seg Neutrophils # Seg Neutrophils # Man Lymphocytes # (Manual) APTT POC ABG pH ABG pH POC ABG pCO2 POC ABG pO2 ABG pO2 ABG HCO3 ABG Base Excess ABG Hemoglobin VBG pH Oxyhemoglobin Sodium Potassium Chloride Carbon Dioxide BUN Creatinine Glucose POC Glucose 233 H 155 H 165 H Lactic Acid Calcium AST Alkaline Phosphatase CK-MB (CK-2) CK-MB (CK-2) Rel Index Albumin TSH Urine WBC (Auto) Salicylates 02/15/17 02/15/17 02/15/17 05:33 11:45 17:20 WBC RBC Hgb Hct MCV MCH RDW Plt Count Lymph % (Auto) [place] % (Auto) Eos % (Auto) Seg Neutrophils % Seg Neuts % (Manual) Lymphocytes % (Manual) Seg Neutrophils # Seg Neutrophils # Man Lymphocytes # (Manual) APTT POC ABG pH ABG pH POC ABG pCO2 POC ABG pO2 ABG pO2 ABG HCO3 ABG Base Excess ABG Hemoglobin VBG pH Oxyhemoglobin Sodium Potassium Chloride Carbon Dioxide BUN Creatinine Glucose POC Glucose 239 H 130 H 189 H Lactic Acid Calcium AST Alkaline Phosphatase CK-MB (CK-2) CK-MB (CK-2) Rel Index Albumin TSH Urine WBC (Auto) Salicylates 02/16/17 02/16/17 02/16/17 00:14 05:09 12:31 WBC RBC Hgb Hct MCV MCH RDW Plt Count Lymph % (Auto) [place] % (Auto) Eos % (Auto) Seg Neutrophils % Seg Neuts % (Manual) Lymphocytes % (Manual) Seg Neutrophils # Seg Neutrophils # Man Lymphocytes # (Manual) APTT POC ABG pH ABG pH POC ABG pCO2 POC ABG pO2 ABG pO2 ABG HCO3 ABG Base Excess ABG Hemoglobin VBG pH Oxyhemoglobin Sodium Potassium Chloride Carbon Dioxide BUN Creatinine Glucose POC Glucose 197 H 226 H 178 H Lactic Acid Calcium AST Alkaline Phosphatase CK-MB (CK-2) CK-MB (CK-2) Rel Index Albumin TSH Urine WBC (Auto) Salicylates 02/16/17 02/16/17 02/17/17 16:35 23:49 05:37 WBC RBC Hgb Hct MCV MCH RDW Plt Count Lymph % (Auto) [place] % (Auto) Eos % (Auto) Seg Neutrophils % Seg Neuts % (Manual) Lymphocytes % (Manual) Seg Neutrophils # Seg Neutrophils # Man Lymphocytes # (Manual) APTT POC ABG pH ABG pH POC ABG pCO2 POC ABG pO2 ABG pO2 ABG HCO3 ABG Base Excess ABG Hemoglobin VBG pH Oxyhemoglobin Sodium Potassium Chloride Carbon Dioxide BUN Creatinine Glucose POC Glucose 174 H 62 L 153 H Lactic Acid Calcium AST Alkaline Phosphatase CK-MB (CK-2) CK-MB (CK-2) Rel Index Albumin TSH Urine WBC (Auto) Salicylates 02/17/17 02/17/17 02/17/17 11:39 17:02 22:24 WBC RBC Hgb Hct MCV MCH RDW Plt Count Lymph % (Auto) [place] % (Auto) Eos % (Auto) Seg Neutrophils % Seg Neuts % (Manual) Lymphocytes % (Manual) Seg Neutrophils # Seg Neutrophils # Man Lymphocytes # (Manual) APTT POC ABG pH ABG pH POC ABG pCO2 POC ABG pO2 ABG pO2 ABG HCO3 ABG Base Excess ABG Hemoglobin VBG pH Oxyhemoglobin Sodium Potassium Chloride Carbon Dioxide BUN Creatinine Glucose POC Glucose 231 H 112 H 116 H Lactic Acid Calcium AST Alkaline Phosphatase CK-MB (CK-2) CK-MB (CK-2) Rel Index Albumin TSH Urine WBC (Auto) Salicylates 02/18/17 02/19/17 02/19/17 15:34 05:09 07:57 WBC RBC Hgb Hct MCV MCH RDW Plt Count Lymph % (Auto) [place] % (Auto) Eos % (Auto) Seg Neutrophils % Seg Neuts % (Manual) Lymphocytes % (Manual) Seg Neutrophils # Seg Neutrophils # Man Lymphocytes # (Manual) APTT POC ABG pH ABG pH POC ABG pCO2 POC ABG pO2 ABG pO2 ABG HCO3 ABG Base Excess ABG Hemoglobin VBG pH Oxyhemoglobin Sodium Potassium Chloride Carbon Dioxide BUN Creatinine Glucose POC Glucose 215 H 218 H 283 H Lactic Acid Calcium AST Alkaline Phosphatase CK-MB (CK-2) CK-MB (CK-2) Rel Index Albumin TSH Urine WBC (Auto) Salicylates 02/19/17 02/19/17 02/20/17 14:49 22:10 05:10 WBC RBC Hgb Hct MCV MCH RDW Plt Count Lymph % (Auto) [place] % (Auto) Eos % (Auto) Seg Neutrophils % Seg Neuts % (Manual) Lymphocytes % (Manual) Seg Neutrophils # Seg Neutrophils # Man Lymphocytes # (Manual) APTT POC ABG pH ABG pH POC ABG pCO2 POC ABG pO2 ABG pO2 ABG HCO3 ABG Base Excess ABG Hemoglobin VBG pH Oxyhemoglobin Sodium Potassium Chloride Carbon Dioxide BUN Creatinine Glucose POC Glucose 290 H 169 H 209 H Lactic Acid Calcium AST Alkaline Phosphatase CK-MB (CK-2) CK-MB (CK-2) Rel Index Albumin TSH Urine WBC (Auto) Salicylates 02/20/17 02/20/17 02/21/17 15:05 21:52 02:00 WBC RBC Hgb Hct MCV MCH RDW Plt Count Lymph % (Auto) [place] % (Auto) Eos % (Auto) Seg Neutrophils % Seg Neuts % (Manual) Lymphocytes % (Manual) Seg Neutrophils # Seg Neutrophils # Man Lymphocytes # (Manual) APTT POC ABG pH ABG pH POC ABG pCO2 POC ABG pO2 ABG pO2 ABG HCO3 ABG Base Excess ABG Hemoglobin VBG pH Oxyhemoglobin Sodium Potassium Chloride Carbon Dioxide BUN Creatinine Glucose POC Glucose 172 H 209 H 216 H Lactic Acid Calcium AST Alkaline Phosphatase CK-MB (CK-2) CK-MB (CK-2) Rel Index Albumin TSH Urine WBC (Auto) Salicylates 02/21/17 02/21/17 02/21/17 04:54 14:43 17:47 WBC RBC Hgb Hct MCV MCH RDW Plt Count Lymph % (Auto) [place] % (Auto) Eos % (Auto) Seg Neutrophils % Seg Neuts % (Manual) Lymphocytes % (Manual) Seg Neutrophils # Seg Neutrophils # Man Lymphocytes # (Manual) APTT POC ABG pH ABG pH POC ABG pCO2 POC ABG pO2 ABG pO2 ABG HCO3 ABG Base Excess ABG Hemoglobin VBG pH Oxyhemoglobin Sodium Potassium Chloride Carbon Dioxide BUN Creatinine Glucose POC Glucose 227 H 290 H 220 H Lactic Acid Calcium AST Alkaline Phosphatase CK-MB (CK-2) CK-MB (CK-2) Rel Index Albumin TSH Urine WBC (Auto) Salicylates 02/21/17 02/22/17 02/22/17 22:02 04:52 15:25 WBC RBC Hgb Hct MCV MCH RDW Plt Count Lymph % (Auto) [place] % (Auto) Eos % (Auto) Seg Neutrophils % Seg Neuts % (Manual) Lymphocytes % (Manual) Seg Neutrophils # Seg Neutrophils # Man Lymphocytes # (Manual) APTT POC ABG pH ABG pH POC ABG pCO2 POC ABG pO2 ABG pO2 ABG HCO3 ABG Base Excess ABG Hemoglobin VBG pH Oxyhemoglobin Sodium Potassium Chloride Carbon Dioxide BUN Creatinine Glucose POC Glucose 246 H 212 H 236 H Lactic Acid Calcium AST Alkaline Phosphatase CK-MB (CK-2) CK-MB (CK-2) Rel Index Albumin TSH Urine WBC (Auto) Salicylates 02/22/17 02/23/17 02/23/17 21:33 06:04 10:00 WBC RBC Hgb Hct MCV MCH RDW Plt Count Lymph % (Auto) [place] % (Auto) Eos % (Auto) Seg Neutrophils % Seg Neuts % (Manual) Lymphocytes % (Manual) Seg Neutrophils # Seg Neutrophils # Man Lymphocytes # (Manual) APTT POC ABG pH ABG pH POC ABG pCO2 POC ABG pO2 ABG pO2 ABG HCO3 ABG Base Excess ABG Hemoglobin VBG pH Oxyhemoglobin Sodium Potassium Chloride Carbon Dioxide BUN Creatinine Glucose POC Glucose 255 H 208 H 174 H Lactic Acid Calcium AST Alkaline Phosphatase CK-MB (CK-2) CK-MB (CK-2) Rel Index Albumin TSH Urine WBC (Auto) Salicylates 02/23/17 02/23/17 02/23/17 12:52 17:15 21:51 WBC RBC Hgb Hct MCV MCH RDW Plt Count Lymph % (Auto) [place] % (Auto) Eos % (Auto) Seg Neutrophils % Seg Neuts % (Manual) Lymphocytes % (Manual) Seg Neutrophils # Seg Neutrophils # Man Lymphocytes # (Manual) APTT POC ABG pH ABG pH POC ABG pCO2 POC ABG pO2 ABG pO2 ABG HCO3 ABG Base Excess ABG Hemoglobin VBG pH Oxyhemoglobin Sodium Potassium Chloride Carbon Dioxide BUN Creatinine Glucose POC Glucose 203 H 269 H 205 H Lactic Acid Calcium AST Alkaline Phosphatase CK-MB (CK-2) CK-MB (CK-2) Rel Index Albumin TSH Urine WBC (Auto) Salicylates 02/24/17 02/24/17 02/24/17 10:23 17:45 21:24 WBC RBC Hgb Hct MCV MCH RDW Plt Count Lymph % (Auto) [place] % (Auto) Eos % (Auto) Seg Neutrophils % Seg Neuts % (Manual) Lymphocytes % (Manual) Seg Neutrophils # Seg Neutrophils # Man Lymphocytes # (Manual) APTT POC ABG pH ABG pH POC ABG pCO2 POC ABG pO2 ABG pO2 ABG HCO3 ABG Base Excess ABG Hemoglobin VBG pH Oxyhemoglobin Sodium Potassium Chloride Carbon Dioxide BUN Creatinine Glucose POC Glucose 280 H 239 H 254 H Lactic Acid Calcium AST Alkaline Phosphatase CK-MB (CK-2) CK-MB (CK-2) Rel Index Albumin TSH Urine WBC (Auto) Salicylates 02/25/17 02/25/17 02/25/17 02:12 05:17 14:32 WBC RBC Hgb Hct MCV MCH RDW Plt Count Lymph % (Auto) [place] % (Auto) Eos % (Auto) Seg Neutrophils % Seg Neuts % (Manual) Lymphocytes % (Manual) Seg Neutrophils # Seg Neutrophils # Man Lymphocytes # (Manual) APTT POC ABG pH ABG pH POC ABG pCO2 POC ABG pO2 ABG pO2 ABG HCO3 ABG Base Excess ABG Hemoglobin VBG pH Oxyhemoglobin Sodium Potassium Chloride Carbon Dioxide BUN Creatinine Glucose POC Glucose 296 H 332 H 353 H Lactic Acid Calcium AST Alkaline Phosphatase CK-MB (CK-2) CK-MB (CK-2) Rel Index Albumin TSH Urine WBC (Auto) Salicylates 02/25/17 02/26/17 02/26/17 22:14 00:37 05:52 WBC RBC Hgb Hct MCV MCH RDW Plt Count Lymph % (Auto) [place] % (Auto) Eos % (Auto) Seg Neutrophils % Seg Neuts % (Manual) Lymphocytes % (Manual) Seg Neutrophils # Seg Neutrophils # Man Lymphocytes # (Manual) APTT POC ABG pH ABG pH POC ABG pCO2 POC ABG pO2 ABG pO2 ABG HCO3 ABG Base Excess ABG Hemoglobin VBG pH Oxyhemoglobin Sodium Potassium Chloride Carbon Dioxide BUN Creatinine Glucose POC Glucose 201 H 233 H 269 H Lactic Acid Calcium AST Alkaline Phosphatase CK-MB (CK-2) CK-MB (CK-2) Rel Index Albumin TSH Urine WBC (Auto) Salicylates 02/26/17 02/26/17 02/26/17 11:48 13:49 21:26 WBC RBC Hgb Hct MCV MCH RDW Plt Count Lymph % (Auto) [place] % (Auto) Eos % (Auto) Seg Neutrophils % Seg Neuts % (Manual) Lymphocytes % (Manual) Seg Neutrophils # Seg Neutrophils # Man Lymphocytes # (Manual) APTT POC ABG pH ABG pH POC ABG pCO2 POC ABG pO2 ABG pO2 ABG HCO3 ABG Base Excess ABG Hemoglobin VBG pH Oxyhemoglobin Sodium Potassium Chloride Carbon Dioxide BUN Creatinine Glucose POC Glucose 333 H 322 H 244 H Lactic Acid Calcium AST Alkaline Phosphatase CK-MB (CK-2) CK-MB (CK-2) Rel Index Albumin TSH Urine WBC (Auto) Salicylates 02/27/17 02/27/17 02/27/17 05:27 13:51 21:48 WBC RBC Hgb Hct MCV MCH RDW Plt Count Lymph % (Auto) [place] % (Auto) Eos % (Auto) Seg Neutrophils % Seg Neuts % (Manual) Lymphocytes % (Manual) Seg Neutrophils # Seg Neutrophils # Man Lymphocytes # (Manual) APTT POC ABG pH ABG pH POC ABG pCO2 POC ABG pO2 ABG pO2 ABG HCO3 ABG Base Excess ABG Hemoglobin VBG pH Oxyhemoglobin Sodium Potassium Chloride Carbon Dioxide BUN Creatinine Glucose POC Glucose 217 H 239 H 254 H Lactic Acid Calcium AST Alkaline Phosphatase CK-MB (CK-2) CK-MB (CK-2) Rel Index Albumin TSH Urine WBC (Auto) Salicylates 02/28/17 02/28/17 02/28/17 05:38 11:00 19:44 WBC RBC Hgb Hct MCV MCH RDW Plt Count Lymph % (Auto) [place] % (Auto) Eos % (Auto) Seg Neutrophils % Seg Neuts % (Manual) Lymphocytes % (Manual) Seg Neutrophils # Seg Neutrophils # Man Lymphocytes # (Manual) APTT POC ABG pH ABG pH POC ABG pCO2 POC ABG pO2 ABG pO2 ABG HCO3 ABG Base Excess ABG Hemoglobin VBG pH Oxyhemoglobin Sodium Potassium Chloride Carbon Dioxide BUN Creatinine Glucose POC Glucose 325 H 203 H 116 H Lactic Acid Calcium AST Alkaline Phosphatase CK-MB (CK-2) CK-MB (CK-2) Rel Index Albumin TSH Urine WBC (Auto) Salicylates 03/01/17 03/01/17 03/01/17 00:08 05:31 12:17 WBC RBC Hgb Hct MCV MCH RDW Plt Count Lymph % (Auto) [place] % (Auto) Eos % (Auto) Seg Neutrophils % Seg Neuts % (Manual) Lymphocytes % (Manual) Seg Neutrophils # Seg Neutrophils # Man Lymphocytes # (Manual) APTT POC ABG pH ABG pH POC ABG pCO2 POC ABG pO2 ABG pO2 ABG HCO3 ABG Base Excess ABG Hemoglobin VBG pH Oxyhemoglobin Sodium Potassium Chloride Carbon Dioxide BUN Creatinine Glucose POC Glucose 202 H 183 H 184 H Lactic Acid Calcium AST Alkaline Phosphatase CK-MB (CK-2) CK-MB (CK-2) Rel Index Albumin TSH Urine WBC (Auto) Salicylates 03/02/17 03/02/17 03/02/17 00:12 05:58 18:22 WBC RBC Hgb Hct MCV MCH RDW Plt Count Lymph % (Auto) [place] % (Auto) Eos % (Auto) Seg Neutrophils % Seg Neuts % (Manual) Lymphocytes % (Manual) Seg Neutrophils # Seg Neutrophils # Man Lymphocytes # (Manual) APTT POC ABG pH ABG pH POC ABG pCO2 POC ABG pO2 ABG pO2 ABG HCO3 ABG Base Excess ABG Hemoglobin VBG pH Oxyhemoglobin Sodium Potassium Chloride Carbon Dioxide BUN Creatinine Glucose POC Glucose 117 H 176 H 156 H Lactic Acid Calcium AST Alkaline Phosphatase CK-MB (CK-2) CK-MB (CK-2) Rel Index Albumin TSH Urine WBC (Auto) Salicylates 03/02/17 03/03/17 03/03/17 23:51 05:44 11:32 WBC RBC Hgb Hct MCV MCH RDW Plt Count Lymph % (Auto) [place] % (Auto) Eos % (Auto) Seg Neutrophils % Seg Neuts % (Manual) Lymphocytes % (Manual) Seg Neutrophils # Seg Neutrophils # Man Lymphocytes # (Manual) APTT POC ABG pH ABG pH POC ABG pCO2 POC ABG pO2 ABG pO2 ABG HCO3 ABG Base Excess ABG Hemoglobin VBG pH Oxyhemoglobin Sodium Potassium Chloride Carbon Dioxide BUN Creatinine Glucose POC Glucose 211 H 117 H 133 H Lactic Acid Calcium AST Alkaline Phosphatase CK-MB (CK-2) CK-MB (CK-2) Rel Index Albumin TSH Urine WBC (Auto) Salicylates 03/03/17 03/03/17 03/04/17 17:43 23:17 05:30 WBC RBC Hgb Hct MCV MCH RDW Plt Count Lymph % (Auto) [place] % (Auto) Eos % (Auto) Seg Neutrophils % Seg Neuts % (Manual) Lymphocytes % (Manual) Seg Neutrophils # Seg Neutrophils # Man Lymphocytes # (Manual) APTT POC ABG pH ABG pH POC ABG pCO2 POC ABG pO2 ABG pO2 ABG HCO3 ABG Base Excess ABG Hemoglobin VBG pH Oxyhemoglobin Sodium Potassium Chloride Carbon Dioxide BUN Creatinine Glucose POC Glucose 206 H 170 H 126 H Lactic Acid Calcium AST Alkaline Phosphatase CK-MB (CK-2) CK-MB (CK-2) Rel Index Albumin TSH Urine WBC (Auto) Salicylates 03/04/17 03/04/17 03/05/17 12:17 17:27 05:20 WBC RBC Hgb Hct MCV MCH RDW Plt Count Lymph % (Auto) [place] % (Auto) Eos % (Auto) Seg Neutrophils % Seg Neuts % (Manual) Lymphocytes % (Manual) Seg Neutrophils # Seg Neutrophils # Man Lymphocytes # (Manual) APTT POC ABG pH ABG pH POC ABG pCO2 POC ABG pO2 ABG pO2 ABG HCO3 ABG Base Excess ABG Hemoglobin VBG pH Oxyhemoglobin Sodium Potassium Chloride Carbon Dioxide BUN Creatinine Glucose POC Glucose 135 H 121 H 185 H Lactic Acid Calcium AST Alkaline Phosphatase CK-MB (CK-2) CK-MB (CK-2) Rel Index Albumin TSH Urine WBC (Auto) Salicylates 03/05/17 03/06/17 03/06/17 11:50 11:52 17:34 WBC RBC Hgb Hct MCV MCH RDW Plt Count Lymph % (Auto) [place] % (Auto) Eos % (Auto) Seg Neutrophils % Seg Neuts % (Manual) Lymphocytes % (Manual) Seg Neutrophils # Seg Neutrophils # Man Lymphocytes # (Manual) APTT POC ABG pH ABG pH POC ABG pCO2 POC ABG pO2 ABG pO2 ABG HCO3 ABG Base Excess ABG Hemoglobin VBG pH Oxyhemoglobin Sodium Potassium Chloride Carbon Dioxide BUN Creatinine Glucose POC Glucose 116 H 133 H 181 H Lactic Acid Calcium AST Alkaline Phosphatase CK-MB (CK-2) CK-MB (CK-2) Rel Index Albumin TSH Urine WBC (Auto) Salicylates 03/07/17 03/07/17 03/07/17 05:21 11:36 17:49 WBC RBC Hgb Hct MCV MCH RDW Plt Count Lymph % (Auto) [place] % (Auto) Eos % (Auto) Seg Neutrophils % Seg Neuts % (Manual) Lymphocytes % (Manual) Seg Neutrophils # Seg Neutrophils # Man Lymphocytes # (Manual) APTT POC ABG pH ABG pH POC ABG pCO2 POC ABG pO2 ABG pO2 ABG HCO3 ABG Base Excess ABG Hemoglobin VBG pH Oxyhemoglobin Sodium Potassium Chloride Carbon Dioxide BUN Creatinine Glucose POC Glucose 159 H 137 H 158 H Lactic Acid Calcium AST Alkaline Phosphatase CK-MB (CK-2) CK-MB (CK-2) Rel Index Albumin TSH Urine WBC (Auto) Salicylates 03/08/17 03/08/17 03/08/17 05:51 13:58 23:50 WBC RBC Hgb Hct MCV MCH RDW Plt Count Lymph % (Auto) [place] % (Auto) Eos % (Auto) Seg Neutrophils % Seg Neuts % (Manual) Lymphocytes % (Manual) Seg Neutrophils # Seg Neutrophils # Man Lymphocytes # (Manual) APTT POC ABG pH ABG pH POC ABG pCO2 POC ABG pO2 ABG pO2 ABG HCO3 ABG Base Excess ABG Hemoglobin VBG pH Oxyhemoglobin Sodium Potassium Chloride Carbon Dioxide BUN Creatinine Glucose POC Glucose 122 H 182 H 114 H Lactic Acid Calcium AST Alkaline Phosphatase CK-MB (CK-2) CK-MB (CK-2) Rel Index Albumin TSH Urine WBC (Auto) Salicylates 03/09/17 03/09/17 03/09/17 05:21 05:51 05:51 WBC RBC 3.61 L Hgb 9.5 L Hct 28.3 L MCV 79 L MCH 26 L RDW 17.8 H Plt Count Lymph % (Auto) [place] % (Auto) Eos % (Auto) Seg Neutrophils % Seg Neuts % (Manual) Lymphocytes % (Manual) Seg Neutrophils # Seg Neutrophils # Man Lymphocytes # (Manual) APTT POC ABG pH ABG pH POC ABG pCO2 POC ABG pO2 ABG pO2 ABG HCO3 ABG Base Excess ABG Hemoglobin VBG pH Oxyhemoglobin Sodium 134 L Potassium Chloride 95.5 L Carbon Dioxide BUN 33 H Creatinine 0.5 L Glucose 143 H POC Glucose 153 H Lactic Acid Calcium AST Alkaline Phosphatase CK-MB (CK-2) CK-MB (CK-2) Rel Index Albumin TSH Urine WBC (Auto) Salicylates 03/09/17 03/09/17 03/09/17 12:10 18:13 21:00 WBC RBC Hgb Hct MCV MCH RDW Plt Count Lymph % (Auto) [place] % (Auto) Eos % (Auto) Seg Neutrophils % Seg Neuts % (Manual) Lymphocytes % (Manual) Seg Neutrophils # Seg Neutrophils # Man Lymphocytes # (Manual) APTT POC ABG pH ABG pH POC ABG pCO2 POC ABG pO2 ABG pO2 ABG HCO3 ABG Base Excess ABG Hemoglobin VBG pH Oxyhemoglobin Sodium Potassium Chloride Carbon Dioxide BUN Creatinine Glucose POC Glucose 203 H 221 H 198 H Lactic Acid Calcium AST Alkaline Phosphatase CK-MB (CK-2) CK-MB (CK-2) Rel Index Albumin TSH Urine WBC (Auto) Salicylates 03/09/17 03/10/17 03/10/17 23:58 05:09 05:09 WBC RBC Hgb 10.3 L Hct 30.5 L MCV 78 L MCH 26 L RDW 17.9 H Plt Count Lymph % (Auto) [place] % (Auto) 10.0 H Eos % (Auto) 6.0 H Seg Neutrophils % Seg Neuts % (Manual) Lymphocytes % (Manual) Seg Neutrophils # Seg Neutrophils # Man Lymphocytes # (Manual) APTT POC ABG pH ABG pH POC ABG pCO2 POC ABG pO2 ABG pO2 ABG HCO3 ABG Base Excess ABG Hemoglobin VBG pH Oxyhemoglobin Sodium 132 L Potassium Chloride 92.2 L Carbon Dioxide BUN 33 H Creatinine 0.5 L Glucose 50 L POC Glucose 167 H Lactic Acid Calcium AST Alkaline Phosphatase CK-MB (CK-2) CK-MB (CK-2) Rel Index Albumin TSH Urine WBC (Auto) Salicylates 03/10/17 03/10/17 03/10/17 05:33 05:34 11:48 WBC RBC Hgb Hct MCV MCH RDW Plt Count Lymph % (Auto) [place] % (Auto) Eos % (Auto) Seg Neutrophils % Seg Neuts % (Manual) Lymphocytes % (Manual) Seg Neutrophils # Seg Neutrophils # Man Lymphocytes # (Manual) APTT POC ABG pH ABG pH POC ABG pCO2 POC ABG pO2 ABG pO2 ABG HCO3 ABG Base Excess ABG Hemoglobin VBG pH Oxyhemoglobin Sodium Potassium Chloride Carbon Dioxide BUN Creatinine Glucose POC Glucose 52 L 53 L 148 H Lactic Acid Calcium AST Alkaline Phosphatase CK-MB (CK-2) CK-MB (CK-2) Rel Index Albumin TSH Urine WBC (Auto) Salicylates 03/10/17 03/10/17 03/11/17 17:53 23:47 05:18 WBC RBC Hgb Hct MCV MCH RDW Plt Count Lymph % (Auto) [place] % (Auto) Eos % (Auto) Seg Neutrophils % Seg Neuts % (Manual) Lymphocytes % (Manual) Seg Neutrophils # Seg Neutrophils # Man Lymphocytes # (Manual) APTT POC ABG pH ABG pH POC ABG pCO2 POC ABG pO2 ABG pO2 ABG HCO3 ABG Base Excess ABG Hemoglobin VBG pH Oxyhemoglobin Sodium Potassium Chloride Carbon Dioxide BUN Creatinine Glucose POC Glucose 189 H 398 H 126 H Lactic Acid Calcium AST Alkaline Phosphatase CK-MB (CK-2) CK-MB (CK-2) Rel Index Albumin TSH Urine WBC (Auto) Salicylates 03/11/17 03/11/17 03/11/17 11:53 17:30 23:10 WBC RBC Hgb Hct MCV MCH RDW Plt Count Lymph % (Auto) [place] % (Auto) Eos % (Auto) Seg Neutrophils % Seg Neuts % (Manual) Lymphocytes % (Manual) Seg Neutrophils # Seg Neutrophils # Man Lymphocytes # (Manual) APTT POC ABG pH ABG pH POC ABG pCO2 POC ABG pO2 ABG pO2 ABG HCO3 ABG Base Excess ABG Hemoglobin VBG pH Oxyhemoglobin Sodium Potassium Chloride Carbon Dioxide BUN Creatinine Glucose POC Glucose 198 H 142 H 244 H Lactic Acid Calcium AST Alkaline Phosphatase CK-MB (CK-2) CK-MB (CK-2) Rel Index Albumin TSH Urine WBC (Auto) Salicylates 03/12/17 03/12/17 03/12/17 04:36 11:49 17:23 WBC RBC Hgb Hct MCV MCH RDW Plt Count Lymph % (Auto) [place] % (Auto) Eos % (Auto) Seg Neutrophils % Seg Neuts % (Manual) Lymphocytes % (Manual) Seg Neutrophils # Seg Neutrophils # Man Lymphocytes # (Manual) APTT POC ABG pH ABG pH POC ABG pCO2 POC ABG pO2 ABG pO2 ABG HCO3 ABG Base Excess ABG Hemoglobin VBG pH Oxyhemoglobin Sodium Potassium Chloride Carbon Dioxide BUN Creatinine Glucose POC Glucose 205 H 197 H 209 H Lactic Acid Calcium AST Alkaline Phosphatase CK-MB (CK-2) CK-MB (CK-2) Rel Index Albumin TSH Urine WBC (Auto) Salicylates 03/12/17 03/13/17 03/13/17 23:51 05:32 11:43 WBC RBC Hgb Hct MCV MCH RDW Plt Count Lymph % (Auto) [place] % (Auto) Eos % (Auto) Seg Neutrophils % Seg Neuts % (Manual) Lymphocytes % (Manual) Seg Neutrophils # Seg Neutrophils # Man Lymphocytes # (Manual) APTT POC ABG pH ABG pH POC ABG pCO2 POC ABG pO2 ABG pO2 ABG HCO3 ABG Base Excess ABG Hemoglobin VBG pH Oxyhemoglobin Sodium Potassium Chloride Carbon Dioxide BUN Creatinine Glucose POC Glucose 210 H 154 H 164 H Lactic Acid Calcium AST Alkaline Phosphatase CK-MB (CK-2) CK-MB (CK-2) Rel Index Albumin TSH Urine WBC (Auto) Salicylates 03/13/17 03/13/17 03/14/17 17:11 23:26 05:42 WBC RBC Hgb Hct MCV MCH RDW Plt Count Lymph % (Auto) [place] % (Auto) Eos % (Auto) Seg Neutrophils % Seg Neuts % (Manual) Lymphocytes % (Manual) Seg Neutrophils # Seg Neutrophils # Man Lymphocytes # (Manual) APTT POC ABG pH ABG pH POC ABG pCO2 POC ABG pO2 ABG pO2 ABG HCO3 ABG Base Excess ABG Hemoglobin VBG pH Oxyhemoglobin Sodium Potassium Chloride Carbon Dioxide BUN Creatinine Glucose POC Glucose 195 H 240 H 230 H Lactic Acid Calcium AST Alkaline Phosphatase CK-MB (CK-2) CK-MB (CK-2) Rel Index Albumin TSH Urine WBC (Auto) Salicylates 03/14/17 03/14/17 03/14/17 14:04 17:34 23:42 WBC RBC Hgb Hct MCV MCH RDW Plt Count Lymph % (Auto) [place] % (Auto) Eos % (Auto) Seg Neutrophils % Seg Neuts % (Manual) Lymphocytes % (Manual) Seg Neutrophils # Seg Neutrophils # Man Lymphocytes # (Manual) APTT POC ABG pH ABG pH POC ABG pCO2 POC ABG pO2 ABG pO2 ABG HCO3 ABG Base Excess ABG Hemoglobin VBG pH Oxyhemoglobin Sodium Potassium Chloride Carbon Dioxide BUN Creatinine Glucose POC Glucose 227 H 186 H 225 H Lactic Acid Calcium AST Alkaline Phosphatase CK-MB (CK-2) CK-MB (CK-2) Rel Index Albumin TSH Urine WBC (Auto) Salicylates 03/15/17 03/15/17 03/15/17 05:21 17:13 21:37 WBC RBC Hgb Hct MCV MCH RDW Plt Count Lymph % (Auto) [place] % (Auto) Eos % (Auto) Seg Neutrophils % Seg Neuts % (Manual) Lymphocytes % (Manual) Seg Neutrophils # Seg Neutrophils # Man Lymphocytes # (Manual) APTT POC ABG pH ABG pH POC ABG pCO2 POC ABG pO2 ABG pO2 ABG HCO3 ABG Base Excess ABG Hemoglobin VBG pH Oxyhemoglobin Sodium Potassium Chloride Carbon Dioxide BUN Creatinine Glucose POC Glucose 244 H 203 H 216 H Lactic Acid Calcium AST Alkaline Phosphatase CK-MB (CK-2) CK-MB (CK-2) Rel Index Albumin TSH Urine WBC (Auto) Salicylates 03/16/17 03/16/17 03/16/17 05:52 18:07 21:54 WBC RBC Hgb Hct MCV MCH RDW Plt Count Lymph % (Auto) [place] % (Auto) Eos % (Auto) Seg Neutrophils % Seg Neuts % (Manual) Lymphocytes % (Manual) Seg Neutrophils # Seg Neutrophils # Man Lymphocytes # (Manual) APTT POC ABG pH ABG pH POC ABG pCO2 POC ABG pO2 ABG pO2 ABG HCO3 ABG Base Excess ABG Hemoglobin VBG pH Oxyhemoglobin Sodium Potassium Chloride Carbon Dioxide BUN Creatinine Glucose POC Glucose 248 H 254 H 244 H Lactic Acid Calcium AST Alkaline Phosphatase CK-MB (CK-2) CK-MB (CK-2) Rel Index Albumin TSH Urine WBC (Auto) Salicylates 03/17/17 03/17/17 03/17/17 07:07 07:42 07:43 WBC RBC Hgb 9.7 L Hct 29.1 L MCV 78 L MCH 26 L RDW 17.4 H Plt Count Lymph % (Auto) [place] % (Auto) Eos % (Auto) Seg Neutrophils % Seg Neuts % (Manual) Lymphocytes % (Manual) Seg Neutrophils # Seg Neutrophils # Man Lymphocytes # (Manual) APTT POC ABG pH ABG pH POC ABG pCO2 POC ABG pO2 ABG pO2 ABG HCO3 ABG Base Excess ABG Hemoglobin VBG pH Oxyhemoglobin Sodium Potassium Chloride 96.6 L Carbon Dioxide BUN 30 H Creatinine 0.5 L Glucose 251 H POC Glucose 222 H Lactic Acid Calcium AST Alkaline Phosphatase CK-MB (CK-2) CK-MB (CK-2) Rel Index Albumin TSH Urine WBC (Auto) Salicylates 03/17/17 03/17/17 03/18/17 14:08 21:20 14:24 WBC RBC Hgb Hct MCV MCH RDW Plt Count Lymph % (Auto) [place] % (Auto) Eos % (Auto) Seg Neutrophils % Seg Neuts % (Manual) Lymphocytes % (Manual) Seg Neutrophils # Seg Neutrophils # Man Lymphocytes # (Manual) APTT POC ABG pH ABG pH POC ABG pCO2 POC ABG pO2 ABG pO2 ABG HCO3 ABG Base Excess ABG Hemoglobin VBG pH Oxyhemoglobin Sodium Potassium Chloride Carbon Dioxide BUN Creatinine Glucose POC Glucose 281 H 239 H 195 H Lactic Acid Calcium AST Alkaline Phosphatase CK-MB (CK-2) CK-MB (CK-2) Rel Index Albumin TSH Urine WBC (Auto) Salicylates 03/18/17 03/19/17 03/19/17 21:37 04:57 14:23 WBC RBC Hgb Hct MCV MCH RDW Plt Count Lymph % (Auto) [place] % (Auto) Eos % (Auto) Seg Neutrophils % Seg Neuts % (Manual) Lymphocytes % (Manual) Seg Neutrophils # Seg Neutrophils # Man Lymphocytes # (Manual) APTT POC ABG pH ABG pH POC ABG pCO2 POC ABG pO2 ABG pO2 ABG HCO3 ABG Base Excess ABG Hemoglobin VBG pH Oxyhemoglobin Sodium Potassium Chloride Carbon Dioxide BUN Creatinine Glucose POC Glucose 227 H 205 H 277 H Lactic Acid Calcium AST Alkaline Phosphatase CK-MB (CK-2) CK-MB (CK-2) Rel Index Albumin TSH Urine WBC (Auto) Salicylates 03/19/17 03/19/17 03/20/17 20:31 21:47 04:55 WBC RBC Hgb Hct MCV MCH RDW Plt Count Lymph % (Auto) [place] % (Auto) Eos % (Auto) Seg Neutrophils % Seg Neuts % (Manual) Lymphocytes % (Manual) Seg Neutrophils # Seg Neutrophils # Man Lymphocytes # (Manual) APTT POC ABG pH ABG pH POC ABG pCO2 POC ABG pO2 ABG pO2 ABG HCO3 ABG Base Excess ABG Hemoglobin VBG pH Oxyhemoglobin Sodium Potassium Chloride Carbon Dioxide BUN Creatinine Glucose POC Glucose 256 H 270 H 202 H Lactic Acid Calcium AST Alkaline Phosphatase CK-MB (CK-2) CK-MB (CK-2) Rel Index Albumin TSH Urine WBC (Auto) Salicylates 03/20/17 03/20/17 03/21/17 14:09 21:40 05:09 WBC RBC Hgb Hct MCV MCH RDW Plt Count Lymph % (Auto) [place] % (Auto) Eos % (Auto) Seg Neutrophils % Seg Neuts % (Manual) Lymphocytes % (Manual) Seg Neutrophils # Seg Neutrophils # Man Lymphocytes # (Manual) APTT POC ABG pH ABG pH POC ABG pCO2 POC ABG pO2 ABG pO2 ABG HCO3 ABG Base Excess ABG Hemoglobin VBG pH Oxyhemoglobin Sodium Potassium Chloride Carbon Dioxide BUN Creatinine Glucose POC Glucose 200 H 214 H 233 H Lactic Acid Calcium AST Alkaline Phosphatase CK-MB (CK-2) CK-MB (CK-2) Rel Index Albumin TSH Urine WBC (Auto) Salicylates 03/21/17 03/21/17 03/22/17 14:06 21:26 05:43 WBC RBC Hgb Hct MCV MCH RDW Plt Count Lymph % (Auto) [place] % (Auto) Eos % (Auto) Seg Neutrophils % Seg Neuts % (Manual) Lymphocytes % (Manual) Seg Neutrophils # Seg Neutrophils # Man Lymphocytes # (Manual) APTT POC ABG pH ABG pH POC ABG pCO2 POC ABG pO2 ABG pO2 ABG HCO3 ABG Base Excess ABG Hemoglobin VBG pH Oxyhemoglobin Sodium Potassium Chloride Carbon Dioxide BUN Creatinine Glucose POC Glucose 250 H 155 H 251 H Lactic Acid Calcium AST Alkaline Phosphatase CK-MB (CK-2) CK-MB (CK-2) Rel Index Albumin TSH Urine WBC (Auto) Salicylates 03/22/17 03/22/17 03/23/17 13:46 21:16 00:23 WBC RBC Hgb Hct MCV MCH RDW Plt Count Lymph % (Auto) [place] % (Auto) Eos % (Auto) Seg Neutrophils % Seg Neuts % (Manual) Lymphocytes % (Manual) Seg Neutrophils # Seg Neutrophils # Man Lymphocytes # (Manual) APTT POC ABG pH ABG pH POC ABG pCO2 POC ABG pO2 ABG pO2 ABG HCO3 ABG Base Excess ABG Hemoglobin VBG pH Oxyhemoglobin Sodium Potassium Chloride Carbon Dioxide BUN Creatinine Glucose POC Glucose 269 H 197 H 126 H Lactic Acid Calcium AST Alkaline Phosphatase CK-MB (CK-2) CK-MB (CK-2) Rel Index Albumin TSH Urine WBC (Auto) Salicylates 03/23/17 03/23/17 03/23/17 05:39 14:06 21:39 WBC RBC Hgb Hct MCV MCH RDW Plt Count Lymph % (Auto) [place] % (Auto) Eos % (Auto) Seg Neutrophils % Seg Neuts % (Manual) Lymphocytes % (Manual) Seg Neutrophils # Seg Neutrophils # Man Lymphocytes # (Manual) APTT POC ABG pH ABG pH POC ABG pCO2 POC ABG pO2 ABG pO2 ABG HCO3 ABG Base Excess ABG Hemoglobin VBG pH Oxyhemoglobin Sodium Potassium Chloride Carbon Dioxide BUN Creatinine Glucose POC Glucose 234 H 241 H 248 H Lactic Acid Calcium AST Alkaline Phosphatase CK-MB (CK-2) CK-MB (CK-2) Rel Index Albumin TSH Urine WBC (Auto) Salicylates 03/24/17 03/24/17 03/25/17 05:06 21:46 05:38 WBC RBC Hgb Hct MCV MCH RDW Plt Count Lymph % (Auto) [place] % (Auto) Eos % (Auto) Seg Neutrophils % Seg Neuts % (Manual) Lymphocytes % (Manual) Seg Neutrophils # Seg Neutrophils # Man Lymphocytes # (Manual) APTT POC ABG pH ABG pH POC ABG pCO2 POC ABG pO2 ABG pO2 ABG HCO3 ABG Base Excess ABG Hemoglobin VBG pH Oxyhemoglobin Sodium Potassium Chloride Carbon Dioxide BUN Creatinine Glucose POC Glucose 232 H 276 H 242 H Lactic Acid Calcium AST Alkaline Phosphatase CK-MB (CK-2) CK-MB (CK-2) Rel Index Albumin TSH Urine WBC (Auto) Salicylates
[2017-03-26] MEDS: HumuLIN R SUB-Q SCH ×3 (05:25→22:06)
[2017-03-26] MEDS: SYNTHROID PO SCH (05:25)
--- NOTE | 2017-03-26 11:54 | Progress Note ---
Assessment and Plan Hypoglycemic brain injury Persistent vegetative state Metabolic encephalopathy Hypoglycemia/hypothermia, resolved Acute respiratory failure mechanical ventilator greater than 96 hours UTI with klebsiella, treated ( Cx + on 01/28), then with ESBL likely colonization hyponatremia, Hypothyroidism IDDM Hypertension low grade Fever, resolved - Cont supportive care and current medication. Monitor vitals, repeat cx on - no growth - increased dose of long acting insulin to 15 unit - Patient is DNR- needs guardianship from the state to give consent for further management, as has no family to give consent. Brief History: 51 YO Male with CKD,HTN, DM presents to ED after found down and unresponsive by his neighbor, who subsequently called EMS. Upon arrival, patient found unresponsive on the floor with a serum glucose of 21, patient has a known history of alcohol abuse and delirium tremens. The patient was administered D5 approximate 500 mls during transport without change in mental status/level of consciousness. Pt seen and evaluated in ED was was found to be unable to protect his airway. Pt intubated and placed on vent support. Pt found to have evidence of hypothyroidism. He was started on Synthroid. He has since been in the ICU. consulting services associate try to locate family, even spoke to the family who he lives with. They themselves were unaware of any family members. After ethics committee meeting on the patient. The decision was made to make him DO NOT RESUSCITATE and to transfer him to hospice. Given his very poor prognosis and poor likelihood of recovery. It was decided that was not his best interest to get trach and PEG. Therefore he'll be transferred to the hospice intubated. Now Awaiting on court ordered /state guardianship. Hospitalist Physical - Physical exam Narrative exam: General: comatose HEENT: Moist mucous membranes, , no lymphadenopathy Neck: supple Cardiac: S1-S2 heard Lungs: mechnical ventilated breath sounds Abdomen: soft , nontender, nondistended, bowel sounds positive Extremities: no edema clubbing or cyanosis Skin: no rash or lesions Neurologic: opens eyes, no response to deep painful stimuli, does not follow commend Subjective Date of service: 03/26/17 Principal diagnosis: Acute respiratory failure,encephalopathy Interval history: patient remains comatose, no movement of extremities afebrile o/n, no clinical change Objective - Constitutional Vitals: Vital Signs - 12hr 03/26/17 03/26/17 03/26/17 00:00 02:01 04:00 Temperature 97.8 F Pulse Rate 62 63 Respiratory 12 12 Rate Blood Pressure 145/79 145/79 O2 Sat by Pulse 95 99 Oximetry 03/26/17 03/26/17 03/26/17 04:01 05:19 08:00 Temperature 98.9 F Pulse Rate 62 61 Respiratory 12 Rate Blood Pressure 145/79 145/79 O2 Sat by Pulse 98 97 Oximetry - Labs CBC & Chem 7: 03/17/17 07:43 03/17/17 07:42 Labs: Abnormal lab results 03/25/17 03/25/17 Range/Units 14:30 23:14 POC Glucose 246 H 208 H (70-105)
[2017-03-26] MEDS: PEPCID PO SCH ×2 (13:24→21:49)
[2017-03-26] MEDS: HEPARIN SUB-Q SCH ×2 (13:24→21:49)
--- NOTE | 2017-03-26 15:14 | Progress Note ---
Assessment and Plan Imp: 1. Hypoglycemia/hypothermia -> suspect due to too much insulin 2. Hypothyroidism; doubt myxedema coma with normal free T4 3. Acute respiratory failure, hypoxia 4. UTI/SIRS 5. Metabolic encephalopathy Rec: 1. GI/DVT PPx/TFs 2. Reviewed chart; ethics note 01/18/17 recommended AND and "hospice"; trying to get guardianship to sign necessary orders for this (however, I was told they are not willing to sign for withdrawal of ventilator); further care felt to be futile and would only prolong potential suffering without affecting ultimate outcome 3. Comfort care, no escalation of care; would not check any further labs, etc. 4. Poor prognosis Unable to locate family. Subjective Date of service: 03/26/17 Principal diagnosis: Acute respiratory failure,encephalopathy Interval history: No events. On vent. Unresponsive. Active Medications Acetaminophen (Tylenol) 650 mg FEEDTUBE Q6H PRN PRN Reason: Non Cardiac Pain Or Temp>101 Last Admin: 03/15/17 17:22 Dose: 650 mg Lipase/Protease/Amylase (Pancreaze Dr 10,500 Unit) 1 each FEEDTUBE PRN PRN PRN Reason: For Clogged Feeding Tube Dextrose (D50w (25gm) Vial) 50 gm IV PRN PRN PRN Reason: Hypoglycemia Last Admin: 03/10/17 05:42 Dose: 50 gm Famotidine (Pepcid) 20 mg PO BID [facility] Last Admin: 03/26/17 13:24 Dose: 20 mg Heparin Sodium (Porcine) (Heparin) 5,000 unit SUB-Q Q12HR [facility] Last Admin: 03/26/17 13:24 Dose: 5,000 unit Hydrophilic Ointment (Vaseline Lip Therapy) 1 applic TP Q2HR PRN PRN Reason: Dry Lips Insulin Detemir (Levemir) 15 units SUB-Q DAILY [facility] Last Admin: 03/09/17 10:15 Dose: 15 units Insulin Human Regular (Novolin R) 0 units SUB-Q Q8HR PAOLO PRN Reason: Protocol Last Admin: 03/26/17 05:25 Dose: Not Given Levothyroxine Sodium (Synthroid) 100 mcg PO DAILY@0600 [facility] Last Admin: 03/26/17 05:25 Dose: 100 mcg Loperamide HCl (Imodium) 2 mg PO Q2H PRN PRN Reason: Diarrhea Last Admin: 03/04/17 12:35 Dose: 2 mg Multi-Ingred Cream/Lotion/Oil/Oint (Artificial Tears Ophth Oint) 1 applic OU Q4HR PRN PRN Reason: Dry Eye(s) Simple Syrup (Simple Syrup) 15 ml FEEDTUBE PRN PRN PRN Reason: Hypoglycemia Last Admin: 02/28/17 18:56 Dose: 15 ml Simple Syrup (Simple Syrup) 30 ml FEEDTUBE PRN PRN PRN Reason: Hypoglycemia Sodium Bicarbonate (Sodium Bicarbonate) 325 mg FEEDTUBE PRN PRN PRN Reason: For Clogged Feeding Tube Objective Vital Signs - 12hr 03/26/17 03/26/17 03/26/17 04:00 04:01 05:19 Temperature 97.8 F Pulse Rate 62 61 Respiratory 12 Rate Blood Pressure 145/79 145/79 O2 Sat by Pulse 98 97 Oximetry 03/26/17 03/26/17 03/26/17 08:00 10:10 12:00 Temperature 98.9 F 99.1 F Pulse Rate 79 Respiratory Rate Blood Pressure 133/75 O2 Sat by Pulse 99 Oximetry 03/26/17 12:22 Temperature Pulse Rate 79 Respiratory 14 Rate Blood Pressure 133/75 O2 Sat by Pulse Oximetry Constitutional: no acute distress, other (intubated, on vent support) Eyes: non-icteric ENT: oropharynx moist Neck: supple, no JVD Effort: normal Ascultation: Bilateral: clear Cardiovascular: regular rate and rhythm Gastrointestinal: normoactive bowel sounds, soft, non-tender, non-distended Integumentary: normal Extremities: no cyanosis, no edema, pink and warm Neurologic: pupils equal and round, other (minimal responsive,no posturing, otherwise no changes, not following any commands. ) Psychiatric: other (unable to obtain) CBC and BMP: 03/17/17 07:43 03/17/17 07:42 ABG, PT/INR, D-dimer: ABG POC ABG pH 7.442 (7.35-7.45) 01/31/17 18:55 ABG pH 7.420 pH Units (7.350-7.450) 01/17/17 04:35 POC ABG pCO2 32.8 (35-45) L 01/31/17 18:55 ABG pCO2 34.5 mm Hg 01/17/17 04:35 POC ABG pO2 82 (80-105) 01/31/17 18:55 ABG pO2 160.3 mm Hg (80.0-90.0) H 01/17/17 04:35 POC ABG HCO3 22.4 01/31/17 18:55 POC ABG Total CO2 23 01/31/17 18:55 POC ABG O2 Sat 97 01/31/17 18:55 ABG O2 Saturation 99.0 % (95.0-99.0) 01/17/17 04:35 PT/INR, D-dimer PT 14.1 Sec. (12.2-14.9) 01/17/17 04:10 INR 1.04 (0.87-1.13) 01/17/17 04:10 Abnormal lab findings: Abnormal Labs 01/09/17 01/09/17 01/09/17 10:16 10:16 10:16 WBC RBC Hgb 9.7 L Hct 28.4 L MCV 76 L MCH 26 L RDW 17.2 H Plt Count 448 H Lymph % (Auto) Maury % (Auto) Eos % (Auto) Seg Neutrophils % 79.5 H Seg Neuts % (Manual) Lymphocytes % (Manual) Seg Neutrophils # Seg Neutrophils # Man Lymphocytes # (Manual) APTT 39.6 H POC ABG pH ABG pH POC ABG pCO2 POC ABG pO2 ABG pO2 ABG HCO3 ABG Base Excess ABG Hemoglobin VBG pH Oxyhemoglobin Sodium 132 L Potassium Chloride 96.7 L Carbon Dioxide 21 L BUN 34 H Creatinine Glucose POC Glucose Lactic Acid Calcium 8.3 L AST Alkaline Phosphatase 151 H CK-MB (CK-2) 7.1 H CK-MB (CK-2) Rel Index 5.2 H Albumin 3.3 L TSH Urine WBC (Auto) Salicylates 01/09/17 01/09/17 01/09/17 10:16 10:16 10:16 WBC RBC Hgb Hct MCV MCH RDW Plt Count Lymph % (Auto) Maury % (Auto) Eos % (Auto) Seg Neutrophils % Seg Neuts % (Manual) Lymphocytes % (Manual) Seg Neutrophils # Seg Neutrophils # Man Lymphocytes # (Manual) APTT POC ABG pH ABG pH POC ABG pCO2 POC ABG pO2 ABG pO2 ABG HCO3 ABG Base Excess ABG Hemoglobin VBG pH 7.284 L Oxyhemoglobin Sodium Potassium Chloride Carbon Dioxide BUN Creatinine Glucose POC Glucose Lactic Acid Calcium AST Alkaline Phosphatase CK-MB (CK-2) CK-MB (CK-2) Rel Index Albumin TSH 52.800 H Urine WBC (Auto) Salicylates < 0.3 L 01/09/17 01/09/17 01/09/17 10:23 11:14 12:49 WBC RBC Hgb Hct MCV MCH RDW Plt Count Lymph % (Auto) Maury % (Auto) Eos % (Auto) Seg Neutrophils % Seg Neuts % (Manual) Lymphocytes % (Manual) Seg Neutrophils # Seg Neutrophils # Man Lymphocytes # (Manual) APTT POC ABG pH ABG pH POC ABG pCO2 POC ABG pO2 643 H ABG pO2 ABG HCO3 ABG Base Excess ABG Hemoglobin VBG pH Oxyhemoglobin Sodium Potassium Chloride Carbon Dioxide BUN Creatinine Glucose POC Glucose < 40 L Lactic Acid Calcium AST Alkaline Phosphatase CK-MB (CK-2) CK-MB (CK-2) Rel Index Albumin TSH Urine WBC (Auto) 61.0 H Salicylates 01/09/17 01/09/17 01/09/17 13:13 14:21 15:09 WBC RBC Hgb Hct MCV MCH RDW Plt Count Lymph % (Auto) Maury % (Auto) Eos % (Auto) Seg Neutrophils % Seg Neuts % (Manual) Lymphocytes % (Manual) Seg Neutrophils # Seg Neutrophils # Man Lymphocytes # (Manual) APTT POC ABG pH ABG pH POC ABG pCO2 POC ABG pO2 ABG pO2 ABG HCO3 ABG Base Excess ABG Hemoglobin VBG pH Oxyhemoglobin Sodium Potassium Chloride Carbon Dioxide BUN Creatinine Glucose POC Glucose 128 H 65 L 120 H Lactic Acid Calcium AST Alkaline Phosphatase CK-MB (CK-2) CK-MB (CK-2) Rel Index Albumin TSH Urine WBC (Auto) Salicylates 01/09/17 01/09/17 01/10/17 16:28 17:14 04:30 WBC 24.1 H RBC 3.38 L Hgb 8.5 L Hct 26.0 L MCV 77 L MCH 25 L RDW 17.9 H Plt Count 474 H Lymph % (Auto) Maury % (Auto) Eos % (Auto) Seg Neutrophils % Seg Neuts % (Manual) 88.0 H Lymphocytes % (Manual) 4.0 L Seg Neutrophils # Seg Neutrophils # Man 21.2 H Lymphocytes # (Manual) 1.0 L APTT POC ABG pH ABG pH POC ABG pCO2 POC ABG pO2 ABG pO2 ABG HCO3 ABG Base Excess ABG Hemoglobin VBG pH Oxyhemoglobin Sodium Potassium Chloride Carbon Dioxide BUN Creatinine Glucose POC Glucose 44 L 112 H Lactic Acid Calcium AST Alkaline Phosphatase CK-MB (CK-2) CK-MB (CK-2) Rel Index Albumin TSH Urine WBC (Auto) Salicylates 01/10/17 01/10/17 01/10/17 04:30 05:41 05:45 WBC RBC Hgb Hct MCV MCH RDW Plt Count Lymph % (Auto) Maury % (Auto) Eos % (Auto) Seg Neutrophils % Seg Neuts % (Manual) Lymphocytes % (Manual) Seg Neutrophils # Seg Neutrophils # Man Lymphocytes # (Manual) APTT POC ABG pH ABG pH POC ABG pCO2 26.6 L POC ABG pO2 207 H ABG pO2 ABG HCO3 ABG Base Excess ABG Hemoglobin VBG pH Oxyhemoglobin Sodium Potassium Chloride Carbon Dioxide 17 L BUN 27 H Creatinine Glucose POC Glucose 68 L Lactic Acid Calcium 7.5 L AST Alkaline Phosphatase CK-MB (CK-2) CK-MB (CK-2) Rel Index Albumin TSH Urine WBC (Auto) Salicylates 01/10/17 01/10/17 01/10/17 07:47 10:50 13:41 WBC RBC Hgb Hct MCV MCH RDW Plt Count Lymph % (Auto) Maury % (Auto) Eos % (Auto) Seg Neutrophils % Seg Neuts % (Manual) Lymphocytes % (Manual) Seg Neutrophils # Seg Neutrophils # Man Lymphocytes # (Manual) APTT POC ABG pH ABG pH POC ABG pCO2 POC ABG pO2 ABG pO2 ABG HCO3 ABG Base Excess ABG Hemoglobin VBG pH Oxyhemoglobin Sodium Potassium Chloride Carbon Dioxide BUN Creatinine Glucose POC Glucose 148 H 165 H 114 H Lactic Acid Calcium AST Alkaline Phosphatase CK-MB (CK-2) CK-MB (CK-2) Rel Index Albumin TSH Urine WBC (Auto) Salicylates 01/10/17 01/10/17 01/10/17 20:20 21:39 23:24 WBC RBC Hgb Hct MCV MCH RDW Plt Count Lymph % (Auto) Maury % (Auto) Eos % (Auto) Seg Neutrophils % Seg Neuts % (Manual) Lymphocytes % (Manual) Seg Neutrophils # Seg Neutrophils # Man Lymphocytes # (Manual) APTT POC ABG pH ABG pH POC ABG pCO2 POC ABG pO2 ABG pO2 ABG HCO3 ABG Base Excess ABG Hemoglobin VBG pH Oxyhemoglobin Sodium Potassium Chloride Carbon Dioxide BUN Creatinine Glucose POC Glucose 150 H 175 H 155 H Lactic Acid Calcium AST Alkaline Phosphatase CK-MB (CK-2) CK-MB (CK-2) Rel Index Albumin TSH Urine WBC (Auto) Salicylates 01/11/17 01/11/17 01/11/17 00:19 04:06 05:20 WBC 15.2 H RBC 3.40 L Hgb 8.9 L Hct 26.3 L MCV 78 L MCH 26 L RDW 18.6 H Plt Count 462 H Lymph % (Auto) 13.2 L Maury % (Auto) Eos % (Auto) Seg Neutrophils % 80.8 H Seg Neuts % (Manual) Lymphocytes % (Manual) Seg Neutrophils # 12.3 H Seg Neutrophils # Man Lymphocytes # (Manual) APTT POC ABG pH 7.463 H ABG pH POC ABG pCO2 26.2 L POC ABG pO2 185 H ABG pO2 ABG HCO3 ABG Base Excess ABG Hemoglobin VBG pH Oxyhemoglobin Sodium Potassium Chloride Carbon Dioxide BUN Creatinine Glucose POC Glucose 163 H Lactic Acid Calcium AST Alkaline Phosphatase CK-MB (CK-2) CK-MB (CK-2) Rel Index Albumin TSH Urine WBC (Auto) Salicylates 01/11/17 01/11/17 01/11/17 05:20 06:21 07:57 WBC RBC Hgb Hct MCV MCH RDW Plt Count Lymph % (Auto) Maury % (Auto) Eos % (Auto) Seg Neutrophils % Seg Neuts % (Manual) Lymphocytes % (Manual) Seg Neutrophils # Seg Neutrophils # Man Lymphocytes # (Manual) APTT POC ABG pH ABG pH POC ABG pCO2 POC ABG pO2 ABG pO2 ABG HCO3 ABG Base Excess ABG Hemoglobin VBG pH Oxyhemoglobin Sodium Potassium 3.4 L Chloride 111.5 H Carbon Dioxide 17 L BUN Creatinine Glucose 147 H POC Glucose 139 H 188 H Lactic Acid Calcium 8.0 L AST Alkaline Phosphatase CK-MB (CK-2) CK-MB (CK-2) Rel Index Albumin TSH Urine WBC (Auto) Salicylates 01/11/17 01/11/17 01/11/17 11:46 16:50 23:15 WBC RBC Hgb Hct MCV MCH RDW Plt Count Lymph % (Auto) Maury % (Auto) Eos % (Auto) Seg Neutrophils % Seg Neuts % (Manual) Lymphocytes % (Manual) Seg Neutrophils # Seg Neutrophils # Man Lymphocytes # (Manual) APTT POC ABG pH ABG pH POC ABG pCO2 POC ABG pO2 ABG pO2 ABG HCO3 ABG Base Excess ABG Hemoglobin VBG pH Oxyhemoglobin Sodium Potassium Chloride Carbon Dioxide BUN Creatinine Glucose POC Glucose 199 H 235 H 155 H Lactic Acid Calcium AST Alkaline Phosphatase CK-MB (CK-2) CK-MB (CK-2) Rel Index Albumin TSH Urine WBC (Auto) Salicylates 01/12/17 01/12/17 01/12/17 05:02 06:56 14:50 WBC RBC Hgb Hct MCV MCH RDW Plt Count Lymph % (Auto) Maury % (Auto) Eos % (Auto) Seg Neutrophils % Seg Neuts % (Manual) Lymphocytes % (Manual) Seg Neutrophils # Seg Neutrophils # Man Lymphocytes # (Manual) APTT POC ABG pH ABG pH POC ABG pCO2 28.0 L POC ABG pO2 178 H ABG pO2 ABG HCO3 ABG Base Excess ABG Hemoglobin VBG pH Oxyhemoglobin Sodium Potassium Chloride Carbon Dioxide BUN Creatinine Glucose POC Glucose 119 H 164 H Lactic Acid Calcium AST Alkaline Phosphatase CK-MB (CK-2) CK-MB (CK-2) Rel Index Albumin TSH Urine WBC (Auto) Salicylates 01/13/17 01/13/17 01/13/17 03:37 03:37 04:26 WBC RBC 3.61 L Hgb 9.3 L Hct 28.0 L MCV 78 L MCH 26 L RDW 18.2 H Plt Count Lymph % (Auto) Maury % (Auto) Eos % (Auto) Seg Neutrophils % Seg Neuts % (Manual) Lymphocytes % (Manual) Seg Neutrophils # Seg Neutrophils # Man Lymphocytes # (Manual) APTT POC ABG pH 7.485 H ABG pH POC ABG pCO2 25.4 L POC ABG pO2 73 L ABG pO2 ABG HCO3 ABG Base Excess ABG Hemoglobin VBG pH Oxyhemoglobin Sodium Potassium Chloride 112.4 H Carbon Dioxide 19 L BUN Creatinine Glucose 118 H POC Glucose Lactic Acid Calcium 8.0 L AST Alkaline Phosphatase CK-MB (CK-2) CK-MB (CK-2) Rel Index Albumin TSH Urine WBC (Auto) Salicylates 01/13/17 01/13/17 01/13/17 06:15 11:50 17:31 WBC RBC Hgb Hct MCV MCH RDW Plt Count Lymph % (Auto) Maury % (Auto) Eos % (Auto) Seg Neutrophils % Seg Neuts % (Manual) Lymphocytes % (Manual) Seg Neutrophils # Seg Neutrophils # Man Lymphocytes # (Manual) APTT POC ABG pH ABG pH POC ABG pCO2 POC ABG pO2 ABG pO2 ABG HCO3 ABG Base Excess ABG Hemoglobin VBG pH Oxyhemoglobin Sodium Potassium Chloride Carbon Dioxide BUN Creatinine Glucose POC Glucose 116 H 171 H 203 H Lactic Acid Calcium AST Alkaline Phosphatase CK-MB (CK-2) CK-MB (CK-2) Rel Index Albumin TSH Urine WBC (Auto) Salicylates 01/14/17 01/14/17 01/14/17 00:02 04:50 04:50 WBC RBC 3.32 L Hgb 8.5 L Hct 26.1 L MCV 79 L MCH 26 L RDW 18.2 H Plt Count Lymph % (Auto) Maury % (Auto) 9.0 H Eos % (Auto) Seg Neutrophils % Seg Neuts % (Manual) Lymphocytes % (Manual) Seg Neutrophils # Seg Neutrophils # Man Lymphocytes # (Manual) APTT POC ABG pH ABG pH POC ABG pCO2 POC ABG pO2 ABG pO2 ABG HCO3 ABG Base Excess ABG Hemoglobin VBG pH Oxyhemoglobin Sodium Potassium Chloride 112.5 H Carbon Dioxide BUN Creatinine Glucose 149 H POC Glucose 157 H Lactic Acid Calcium 8.1 L AST Alkaline Phosphatase CK-MB (CK-2) CK-MB (CK-2) Rel Index Albumin TSH Urine WBC (Auto) Salicylates 01/14/17 01/14/17 01/14/17 05:10 11:27 14:07 WBC RBC Hgb Hct MCV MCH RDW Plt Count Lymph % (Auto) Maury % (Auto) Eos % (Auto) Seg Neutrophils % Seg Neuts % (Manual) Lymphocytes % (Manual) Seg Neutrophils # Seg Neutrophils # Man Lymphocytes # (Manual) APTT POC ABG pH ABG pH POC ABG pCO2 POC ABG pO2 ABG pO2 ABG HCO3 ABG Base Excess ABG Hemoglobin VBG pH Oxyhemoglobin Sodium Potassium Chloride Carbon Dioxide BUN Creatinine Glucose POC Glucose 176 H 147 H Lactic Acid Calcium AST Alkaline Phosphatase CK-MB (CK-2) CK-MB (CK-2) Rel Index Albumin TSH Urine WBC (Auto) 53.0 H Salicylates 01/14/17 01/15/17 01/15/17 16:52 00:04 05:26 WBC RBC Hgb Hct MCV MCH RDW Plt Count Lymph % (Auto) Maury % (Auto) Eos % (Auto) Seg Neutrophils % Seg Neuts % (Manual) Lymphocytes % (Manual) Seg Neutrophils # Seg Neutrophils # Man Lymphocytes # (Manual) APTT POC ABG pH ABG pH POC ABG pCO2 POC ABG pO2 ABG pO2 ABG HCO3 ABG Base Excess ABG Hemoglobin VBG pH Oxyhemoglobin Sodium Potassium Chloride Carbon Dioxide BUN Creatinine Glucose POC Glucose 131 H 193 H 215 H Lactic Acid Calcium AST Alkaline Phosphatase CK-MB (CK-2) CK-MB (CK-2) Rel Index Albumin TSH Urine WBC (Auto) Salicylates 01/15/17 01/15/17 01/15/17 11:49 17:47 21:33 WBC RBC Hgb Hct MCV MCH RDW Plt Count Lymph % (Auto) Maury % (Auto) Eos % (Auto) Seg Neutrophils % Seg Neuts % (Manual) Lymphocytes % (Manual) Seg Neutrophils # Seg Neutrophils # Man Lymphocytes # (Manual) APTT POC ABG pH ABG pH POC ABG pCO2 POC ABG pO2 ABG pO2 ABG HCO3 ABG Base Excess ABG Hemoglobin VBG pH Oxyhemoglobin Sodium Potassium Chloride Carbon Dioxide BUN Creatinine Glucose POC Glucose 121 H 211 H 275 H Lactic Acid Calcium AST Alkaline Phosphatase CK-MB (CK-2) CK-MB (CK-2) Rel Index Albumin TSH Urine WBC (Auto) Salicylates 01/16/17 01/16/17 01/16/17 04:30 05:28 13:45 WBC RBC Hgb Hct MCV MCH RDW Plt Count Lymph % (Auto) Maury % (Auto) Eos % (Auto) Seg Neutrophils % Seg Neuts % (Manual) Lymphocytes % (Manual) Seg Neutrophils # Seg Neutrophils # Man Lymphocytes # (Manual) APTT POC ABG pH ABG pH 7.457 H POC ABG pCO2 POC ABG pO2 ABG pO2 55.1 L ABG HCO3 19.4 L ABG Base Excess -4.0 L ABG Hemoglobin 6.8 L VBG pH Oxyhemoglobin 94.9 L Sodium Potassium Chloride Carbon Dioxide BUN Creatinine Glucose POC Glucose 271 H 236 H Lactic Acid Calcium AST Alkaline Phosphatase CK-MB (CK-2) CK-MB (CK-2) Rel Index Albumin TSH Urine WBC (Auto) Salicylates 01/16/17 01/17/17 01/17/17 21:39 04:10 04:10 WBC 4.4 L RBC 2.98 L Hgb 7.7 L Hct 23.3 L MCV 78 L MCH 26 L RDW 18.1 H Plt Count Lymph % (Auto) Maury % (Auto) Eos % (Auto) Seg Neutrophils % Seg Neuts % (Manual) Lymphocytes % (Manual) Seg Neutrophils # Seg Neutrophils # Man Lymphocytes # (Manual) APTT POC ABG pH ABG pH POC ABG pCO2 POC ABG pO2 ABG pO2 ABG HCO3 ABG Base Excess ABG Hemoglobin VBG pH Oxyhemoglobin Sodium Potassium 3.3 L Chloride 108.7 H Carbon Dioxide 20 L BUN 8 L Creatinine Glucose 202 H POC Glucose 258 H Lactic Acid Calcium 7.6 L AST Alkaline Phosphatase CK-MB (CK-2) CK-MB (CK-2) Rel Index Albumin TSH Urine WBC (Auto) Salicylates 01/17/17 01/17/17 01/17/17 04:35 12:23 16:01 WBC RBC Hgb Hct MCV MCH RDW Plt Count Lymph % (Auto) Maury % (Auto) Eos % (Auto) Seg Neutrophils % Seg Neuts % (Manual) Lymphocytes % (Manual) Seg Neutrophils # Seg Neutrophils # Man Lymphocytes # (Manual) APTT POC ABG pH ABG pH POC ABG pCO2 POC ABG pO2 ABG pO2 160.3 H ABG HCO3 ABG Base Excess -2.3 L ABG Hemoglobin 7.9 L VBG pH Oxyhemoglobin Sodium Potassium Chloride Carbon Dioxide BUN Creatinine Glucose POC Glucose 321 H 239 H Lactic Acid Calcium AST Alkaline Phosphatase CK-MB (CK-2) CK-MB (CK-2) Rel Index Albumin TSH Urine WBC (Auto) Salicylates 01/18/17 01/18/17 01/18/17 05:07 12:09 17:54 WBC RBC Hgb Hct MCV MCH RDW Plt Count Lymph % (Auto) Maury % (Auto) Eos % (Auto) Seg Neutrophils % Seg Neuts % (Manual) Lymphocytes % (Manual) Seg Neutrophils # Seg Neutrophils # Man Lymphocytes # (Manual) APTT POC ABG pH ABG pH POC ABG pCO2 POC ABG pO2 ABG pO2 ABG HCO3 ABG Base Excess ABG Hemoglobin VBG pH Oxyhemoglobin Sodium Potassium Chloride Carbon Dioxide BUN Creatinine Glucose POC Glucose 155 H 203 H 132 H Lactic Acid Calcium AST Alkaline Phosphatase CK-MB (CK-2) CK-MB (CK-2) Rel Index Albumin TSH Urine WBC (Auto) Salicylates 01/18/17 01/19/17 01/19/17 23:43 04:28 12:11 WBC RBC Hgb Hct MCV MCH RDW Plt Count Lymph % (Auto) Maury % (Auto) Eos % (Auto) Seg Neutrophils % Seg Neuts % (Manual) Lymphocytes % (Manual) Seg Neutrophils # Seg Neutrophils # Man Lymphocytes # (Manual) APTT POC ABG pH ABG pH POC ABG pCO2 POC ABG pO2 ABG pO2 ABG HCO3 ABG Base Excess ABG Hemoglobin VBG pH Oxyhemoglobin Sodium Potassium Chloride Carbon Dioxide BUN Creatinine Glucose POC Glucose 125 H 182 H 153 H Lactic Acid Calcium AST Alkaline Phosphatase CK-MB (CK-2) CK-MB (CK-2) Rel Index Albumin TSH Urine WBC (Auto) Salicylates 01/19/17 01/20/17 01/20/17 17:23 00:12 05:44 WBC RBC Hgb Hct MCV MCH RDW Plt Count Lymph % (Auto) Maury % (Auto) Eos % (Auto) Seg Neutrophils % Seg Neuts % (Manual) Lymphocytes % (Manual) Seg Neutrophils # Seg Neutrophils # Man Lymphocytes # (Manual) APTT POC ABG pH ABG pH POC ABG pCO2 POC ABG pO2 ABG pO2 ABG HCO3 ABG Base Excess ABG Hemoglobin VBG pH Oxyhemoglobin Sodium Potassium Chloride Carbon Dioxide BUN Creatinine Glucose POC Glucose 66 L 139 H 176 H Lactic Acid Calcium AST Alkaline Phosphatase CK-MB (CK-2) CK-MB (CK-2) Rel Index Albumin TSH Urine WBC (Auto) Salicylates 01/20/17 01/20/17 01/20/17 11:48 17:42 23:43 WBC RBC Hgb Hct MCV MCH RDW Plt Count Lymph % (Auto) Maury % (Auto) Eos % (Auto) Seg Neutrophils % Seg Neuts % (Manual) Lymphocytes % (Manual) Seg Neutrophils # Seg Neutrophils # Man Lymphocytes # (Manual) APTT POC ABG pH ABG pH POC ABG pCO2 POC ABG pO2 ABG pO2 ABG HCO3 ABG Base Excess ABG Hemoglobin VBG pH Oxyhemoglobin Sodium Potassium Chloride Carbon Dioxide BUN Creatinine Glucose POC Glucose 218 H 132 H 178 H Lactic Acid Calcium AST Alkaline Phosphatase CK-MB (CK-2) CK-MB (CK-2) Rel Index Albumin TSH Urine WBC (Auto) Salicylates 01/21/17 01/21/17 01/21/17 05:34 11:17 23:37 WBC RBC Hgb Hct MCV MCH RDW Plt Count Lymph % (Auto) Maury % (Auto) Eos % (Auto) Seg Neutrophils % Seg Neuts % (Manual) Lymphocytes % (Manual) Seg Neutrophils # Seg Neutrophils # Man Lymphocytes # (Manual) APTT POC ABG pH ABG pH POC ABG pCO2 POC ABG pO2 ABG pO2 ABG HCO3 ABG Base Excess ABG Hemoglobin VBG pH Oxyhemoglobin Sodium Potassium Chloride Carbon Dioxide BUN Creatinine Glucose POC Glucose 106 H 213 H 140 H Lactic Acid Calcium AST Alkaline Phosphatase CK-MB (CK-2) CK-MB (CK-2) Rel Index Albumin TSH Urine WBC (Auto) Salicylates 01/22/17 01/22/17 01/22/17 04:00 04:00 04:58 WBC RBC 3.26 L Hgb 8.3 L Hct 25.5 L MCV 78 L MCH 25 L RDW 17.9 H Plt Count Lymph % (Auto) Maury % (Auto) 7.9 H Eos % (Auto) 6.2 H Seg Neutrophils % Seg Neuts % (Manual) Lymphocytes % (Manual) Seg Neutrophils # Seg Neutrophils # Man Lymphocytes # (Manual) APTT POC ABG pH ABG pH POC ABG pCO2 POC ABG pO2 ABG pO2 ABG HCO3 ABG Base Excess ABG Hemoglobin VBG pH Oxyhemoglobin Sodium Potassium Chloride 95.5 L Carbon Dioxide 31 H D BUN Creatinine Glucose 134 H POC Glucose 146 H Lactic Acid Calcium AST 44 H Alkaline Phosphatase 379 H CK-MB (CK-2) CK-MB (CK-2) Rel Index Albumin 2.7 L TSH Urine WBC (Auto) Salicylates 01/22/17 01/22/17 01/22/17 12:12 18:12 23:39 WBC RBC Hgb Hct MCV MCH RDW Plt Count Lymph % (Auto) Maury % (Auto) Eos % (Auto) Seg Neutrophils % Seg Neuts % (Manual) Lymphocytes % (Manual) Seg Neutrophils # Seg Neutrophils # Man Lymphocytes # (Manual) APTT POC ABG pH ABG pH POC ABG pCO2 POC ABG pO2 ABG pO2 ABG HCO3 ABG Base Excess ABG Hemoglobin VBG pH Oxyhemoglobin Sodium Potassium Chloride Carbon Dioxide BUN Creatinine Glucose POC Glucose 255 H 182 H 134 H Lactic Acid Calcium AST Alkaline Phosphatase CK-MB (CK-2) CK-MB (CK-2) Rel Index Albumin TSH Urine WBC (Auto) Salicylates 01/23/17 01/23/17 01/23/17 04:43 12:12 17:36 WBC RBC Hgb Hct MCV MCH RDW Plt Count Lymph % (Auto) Maury % (Auto) Eos % (Auto) Seg Neutrophils % Seg Neuts % (Manual) Lymphocytes % (Manual) Seg Neutrophils # Seg Neutrophils # Man Lymphocytes # (Manual) APTT POC ABG pH ABG pH POC ABG pCO2 POC ABG pO2 ABG pO2 ABG HCO3 ABG Base Excess ABG Hemoglobin VBG pH Oxyhemoglobin Sodium Potassium Chloride Carbon Dioxide BUN Creatinine Glucose POC Glucose 218 H 128 H 156 H Lactic Acid Calcium AST Alkaline Phosphatase CK-MB (CK-2) CK-MB (CK-2) Rel Index Albumin TSH Urine WBC (Auto) Salicylates 01/24/17 01/24/17 01/24/17 00:08 05:16 11:40 WBC RBC Hgb Hct MCV MCH RDW Plt Count Lymph % (Auto) Maury % (Auto) Eos % (Auto) Seg Neutrophils % Seg Neuts % (Manual) Lymphocytes % (Manual) Seg Neutrophils # Seg Neutrophils # Man Lymphocytes # (Manual) APTT POC ABG pH ABG pH POC ABG pCO2 POC ABG pO2 ABG pO2 ABG HCO3 ABG Base Excess ABG Hemoglobin VBG pH Oxyhemoglobin Sodium Potassium Chloride Carbon Dioxide BUN Creatinine Glucose POC Glucose 129 H 169 H 187 H Lactic Acid Calcium AST Alkaline Phosphatase CK-MB (CK-2) CK-MB (CK-2) Rel Index Albumin TSH Urine WBC (Auto) Salicylates 01/24/17 01/24/17 01/25/17 17:43 23:23 04:56 WBC RBC Hgb Hct MCV MCH RDW Plt Count Lymph % (Auto) Maury % (Auto) Eos % (Auto) Seg Neutrophils % Seg Neuts % (Manual) Lymphocytes % (Manual) Seg Neutrophils # Seg Neutrophils # Man Lymphocytes # (Manual) APTT POC ABG pH ABG pH POC ABG pCO2 POC ABG pO2 ABG pO2 ABG HCO3 ABG Base Excess ABG Hemoglobin VBG pH Oxyhemoglobin Sodium Potassium Chloride Carbon Dioxide BUN Creatinine Glucose POC Glucose 215 H 222 H 210 H Lactic Acid Calcium AST Alkaline Phosphatase CK-MB (CK-2) CK-MB (CK-2) Rel Index Albumin TSH Urine WBC (Auto) Salicylates 01/25/17 01/25/17 01/26/17 11:52 17:37 00:02 WBC RBC Hgb Hct MCV MCH RDW Plt Count Lymph % (Auto) Maury % (Auto) Eos % (Auto) Seg Neutrophils % Seg Neuts % (Manual) Lymphocytes % (Manual) Seg Neutrophils # Seg Neutrophils # Man Lymphocytes # (Manual) APTT POC ABG pH ABG pH POC ABG pCO2 POC ABG pO2 ABG pO2 ABG HCO3 ABG Base Excess ABG Hemoglobin VBG pH Oxyhemoglobin Sodium Potassium Chloride Carbon Dioxide BUN Creatinine Glucose POC Glucose 284 H 218 H 192 H Lactic Acid Calcium AST Alkaline Phosphatase CK-MB (CK-2) CK-MB (CK-2) Rel Index Albumin TSH Urine WBC (Auto) Salicylates 01/26/17 01/26/17 01/26/17 05:33 12:17 17:50 WBC RBC Hgb Hct MCV MCH RDW Plt Count Lymph % (Auto) Maury % (Auto) Eos % (Auto) Seg Neutrophils % Seg Neuts % (Manual) Lymphocytes % (Manual) Seg Neutrophils # Seg Neutrophils # Man Lymphocytes # (Manual) APTT POC ABG pH ABG pH POC ABG pCO2 POC ABG pO2 ABG pO2 ABG HCO3 ABG Base Excess ABG Hemoglobin VBG pH Oxyhemoglobin Sodium Potassium Chloride Carbon Dioxide BUN Creatinine Glucose POC Glucose 199 H 227 H 229 H Lactic Acid Calcium AST Alkaline Phosphatase CK-MB (CK-2) CK-MB (CK-2) Rel Index Albumin TSH Urine WBC (Auto) Salicylates 01/26/17 01/27/17 01/27/17 23:57 05:31 11:42 WBC RBC Hgb Hct MCV MCH RDW Plt Count Lymph % (Auto) Maury % (Auto) Eos % (Auto) Seg Neutrophils % Seg Neuts % (Manual) Lymphocytes % (Manual) Seg Neutrophils # Seg Neutrophils # Man Lymphocytes # (Manual) APTT POC ABG pH ABG pH POC ABG pCO2 POC ABG pO2 ABG pO2 ABG HCO3 ABG Base Excess ABG Hemoglobin VBG pH Oxyhemoglobin Sodium Potassium Chloride Carbon Dioxide BUN Creatinine Glucose POC Glucose 186 H 285 H 260 H Lactic Acid Calcium AST Alkaline Phosphatase CK-MB (CK-2) CK-MB (CK-2) Rel Index Albumin TSH Urine WBC (Auto) Salicylates 01/27/17 01/27/17 01/27/17 17:47 23:58 Unknown WBC 12.1 H RBC 3.28 L Hgb 8.5 L Hct 25.5 L MCV 78 L MCH 26 L RDW 16.8 H Plt Count 601 H Lymph % (Auto) Maury % (Auto) Eos % (Auto) Seg Neutrophils % Seg Neuts % (Manual) Lymphocytes % (Manual) Seg Neutrophils # Seg Neutrophils # Man Lymphocytes # (Manual) APTT POC ABG pH ABG pH POC ABG pCO2 POC ABG pO2 ABG pO2 ABG HCO3 ABG Base Excess ABG Hemoglobin VBG pH Oxyhemoglobin Sodium Potassium Chloride Carbon Dioxide BUN Creatinine Glucose POC Glucose 329 H 225 H Lactic Acid Calcium AST Alkaline Phosphatase CK-MB (CK-2) CK-MB (CK-2) Rel Index Albumin TSH Urine WBC (Auto) Salicylates 01/27/17 01/28/17 01/28/17 Unknown 03:44 03:44 WBC RBC 3.14 L Hgb 8.2 L Hct 24.1 L MCV 77 L MCH 26 L RDW 16.9 H Plt Count 567 H Lymph % (Auto) Maury % (Auto) Eos % (Auto) Seg Neutrophils % Seg Neuts % (Manual) Lymphocytes % (Manual) Seg Neutrophils # Seg Neutrophils # Man Lymphocytes # (Manual) APTT POC ABG pH ABG pH POC ABG pCO2 POC ABG pO2 ABG pO2 ABG HCO3 ABG Base Excess ABG Hemoglobin VBG pH Oxyhemoglobin Sodium 128 L Potassium 5.4 H Chloride 87.5 L Carbon Dioxide BUN 44 H 42 H Creatinine Glucose 250 H 128 H POC Glucose Lactic Acid Calcium AST Alkaline Phosphatase CK-MB (CK-2) CK-MB (CK-2) Rel Index Albumin TSH Urine WBC (Auto) Salicylates 01/28/17 01/28/17 01/28/17 11:43 16:47 17:52 WBC RBC Hgb Hct MCV MCH RDW Plt Count Lymph % (Auto) Maury % (Auto) Eos % (Auto) Seg Neutrophils % Seg Neuts % (Manual) Lymphocytes % (Manual) Seg Neutrophils # Seg Neutrophils # Man Lymphocytes # (Manual) APTT POC ABG pH ABG pH POC ABG pCO2 POC ABG pO2 ABG pO2 ABG HCO3 ABG Base Excess ABG Hemoglobin VBG pH Oxyhemoglobin Sodium Potassium Chloride Carbon Dioxide BUN Creatinine Glucose POC Glucose 351 H 249 H Lactic Acid Calcium AST Alkaline Phosphatase CK-MB (CK-2) CK-MB (CK-2) Rel Index Albumin TSH Urine WBC (Auto) > 182.0 H Salicylates 01/29/17 01/29/17 01/29/17 05:25 05:25 09:32 WBC 13.6 H RBC 3.25 L Hgb 8.3 L Hct 25.1 L MCV 77 L MCH 26 L RDW 16.8 H Plt Count 514 H Lymph % (Auto) Maury % (Auto) Eos % (Auto) Seg Neutrophils % Seg Neuts % (Manual) Lymphocytes % (Manual) Seg Neutrophils # Seg Neutrophils # Man Lymphocytes # (Manual) APTT POC ABG pH ABG pH POC ABG pCO2 POC ABG pO2 ABG pO2 ABG HCO3 ABG Base Excess ABG Hemoglobin VBG pH Oxyhemoglobin Sodium Potassium Chloride 97.8 L Carbon Dioxide BUN 34 H Creatinine Glucose 222 H POC Glucose Lactic Acid 2.50 H* Calcium AST Alkaline Phosphatase CK-MB (CK-2) CK-MB (CK-2) Rel Index Albumin TSH Urine WBC (Auto) Salicylates 01/29/17 01/29/17 01/29/17 11:56 18:11 23:55 WBC RBC Hgb Hct MCV MCH RDW Plt Count Lymph % (Auto) Maury % (Auto) Eos % (Auto) Seg Neutrophils % Seg Neuts % (Manual) Lymphocytes % (Manual) Seg Neutrophils # Seg Neutrophils # Man Lymphocytes # (Manual) APTT POC ABG pH ABG pH POC ABG pCO2 POC ABG pO2 ABG pO2 ABG HCO3 ABG Base Excess ABG Hemoglobin VBG pH Oxyhemoglobin Sodium Potassium Chloride Carbon Dioxide BUN Creatinine Glucose POC Glucose 261 H 215 H 176 H Lactic Acid Calcium AST Alkaline Phosphatase CK-MB (CK-2) CK-MB (CK-2) Rel Index Albumin TSH Urine WBC (Auto) Salicylates 01/30/17 01/30/17 01/30/17 05:31 05:31 05:34 WBC 15.2 H RBC 3.09 L Hgb 7.9 L Hct 23.9 L MCV 77 L MCH 26 L RDW 16.9 H Plt Count 569 H Lymph % (Auto) Maury % (Auto) Eos % (Auto) Seg Neutrophils % Seg Neuts % (Manual) Lymphocytes % (Manual) Seg Neutrophils # Seg Neutrophils # Man Lymphocytes # (Manual) APTT POC ABG pH ABG pH POC ABG pCO2 POC ABG pO2 ABG pO2 ABG HCO3 ABG Base Excess ABG Hemoglobin VBG pH Oxyhemoglobin Sodium Potassium Chloride Carbon Dioxide BUN 24 H Creatinine Glucose 235 H POC Glucose 243 H Lactic Acid Calcium AST Alkaline Phosphatase CK-MB (CK-2) CK-MB (CK-2) Rel Index Albumin TSH Urine WBC (Auto) Salicylates 01/30/17 01/30/17 01/30/17 11:38 17:58 23:29 WBC RBC Hgb Hct MCV MCH RDW Plt Count Lymph % (Auto) Maury % (Auto) Eos % (Auto) Seg Neutrophils % Seg Neuts % (Manual) Lymphocytes % (Manual) Seg Neutrophils # Seg Neutrophils # Man Lymphocytes # (Manual) APTT POC ABG pH ABG pH POC ABG pCO2 POC ABG pO2 ABG pO2 ABG HCO3 ABG Base Excess ABG Hemoglobin VBG pH Oxyhemoglobin Sodium Potassium Chloride Carbon Dioxide BUN Creatinine Glucose POC Glucose 298 H 208 H 245 H Lactic Acid Calcium AST Alkaline Phosphatase CK-MB (CK-2) CK-MB (CK-2) Rel Index Albumin TSH Urine WBC (Auto) Salicylates 01/31/17 01/31/17 01/31/17 04:39 04:39 05:57 WBC 11.4 H RBC 3.22 L Hgb 8.2 L Hct 24.9 L MCV 78 L MCH 25 L RDW 17.2 H Plt Count 576 H Lymph % (Auto) Maury % (Auto) Eos % (Auto) Seg Neutrophils % Seg Neuts % (Manual) Lymphocytes % (Manual) Seg Neutrophils # Seg Neutrophils # Man Lymphocytes # (Manual) APTT POC ABG pH ABG pH POC ABG pCO2 POC ABG pO2 ABG pO2 ABG HCO3 ABG Base Excess ABG Hemoglobin VBG pH Oxyhemoglobin Sodium Potassium Chloride Carbon Dioxide BUN Creatinine 0.7 L Glucose 223 H POC Glucose 264 H Lactic Acid Calcium AST Alkaline Phosphatase CK-MB (CK-2) CK-MB (CK-2) Rel Index Albumin TSH Urine WBC (Auto) Salicylates 01/31/17 01/31/17 01/31/17 12:23 17:41 18:55 WBC RBC Hgb Hct MCV MCH RDW Plt Count Lymph % (Auto) Maury % (Auto) Eos % (Auto) Seg Neutrophils % Seg Neuts % (Manual) Lymphocytes % (Manual) Seg Neutrophils # Seg Neutrophils # Man Lymphocytes # (Manual) APTT POC ABG pH ABG pH POC ABG pCO2 32.8 L POC ABG pO2 ABG pO2 ABG HCO3 ABG Base Excess ABG Hemoglobin VBG pH Oxyhemoglobin Sodium Potassium Chloride Carbon Dioxide BUN Creatinine Glucose POC Glucose 252 H 208 H Lactic Acid Calcium AST Alkaline Phosphatase CK-MB (CK-2) CK-MB (CK-2) Rel Index Albumin TSH Urine WBC (Auto) Salicylates 01/31/17 02/01/17 02/01/17 22:59 03:38 03:38 WBC RBC 2.81 L Hgb 7.4 L Hct 22.1 L MCV 79 L MCH 27 L RDW 17.0 H Plt Count 540 H Lymph % (Auto) Maury % (Auto) Eos % (Auto) Seg Neutrophils % Seg Neuts % (Manual) Lymphocytes % (Manual) Seg Neutrophils # Seg Neutrophils # Man Lymphocytes # (Manual) APTT POC ABG pH ABG pH POC ABG pCO2 POC ABG pO2 ABG pO2 ABG HCO3 ABG Base Excess ABG Hemoglobin VBG pH Oxyhemoglobin Sodium Potassium Chloride Carbon Dioxide 21 L BUN Creatinine 0.7 L Glucose POC Glucose 40 L Lactic Acid Calcium AST Alkaline Phosphatase CK-MB (CK-2) CK-MB (CK-2) Rel Index Albumin TSH Urine WBC (Auto) Salicylates 02/01/17 02/01/17 02/01/17 05:17 12:19 16:44 WBC RBC Hgb Hct MCV MCH RDW Plt Count Lymph % (Auto) Maury % (Auto) Eos % (Auto) Seg Neutrophils % Seg Neuts % (Manual) Lymphocytes % (Manual) Seg Neutrophils # Seg Neutrophils # Man Lymphocytes # (Manual) APTT POC ABG pH ABG pH POC ABG pCO2 POC ABG pO2 ABG pO2 ABG HCO3 ABG Base Excess ABG Hemoglobin VBG pH Oxyhemoglobin Sodium Potassium Chloride Carbon Dioxide BUN Creatinine Glucose POC Glucose 140 H 213 H 172 H Lactic Acid Calcium AST Alkaline Phosphatase CK-MB (CK-2) CK-MB (CK-2) Rel Index Albumin TSH Urine WBC (Auto) Salicylates 02/01/17 02/02/17 02/02/17 23:59 05:14 11:24 WBC RBC Hgb Hct MCV MCH RDW Plt Count Lymph % (Auto) Maury % (Auto) Eos % (Auto) Seg Neutrophils % Seg Neuts % (Manual) Lymphocytes % (Manual) Seg Neutrophils # Seg Neutrophils # Man Lymphocytes # (Manual) APTT POC ABG pH ABG pH POC ABG pCO2 POC ABG pO2 ABG pO2 ABG HCO3 ABG Base Excess ABG Hemoglobin VBG pH Oxyhemoglobin Sodium Potassium Chloride Carbon Dioxide BUN Creatinine Glucose POC Glucose 181 H 194 H 209 H Lactic Acid Calcium AST Alkaline Phosphatase CK-MB (CK-2) CK-MB (CK-2) Rel Index Albumin TSH Urine WBC (Auto) Salicylates 02/02/17 02/02/17 02/02/17 11:46 11:46 17:47 WBC RBC 2.94 L Hgb 7.5 L Hct 23.0 L MCV 78 L MCH 25 L RDW 16.9 H Plt Count 520 H Lymph % (Auto) Maury % (Auto) Eos % (Auto) Seg Neutrophils % Seg Neuts % (Manual) Lymphocytes % (Manual) Seg Neutrophils # Seg Neutrophils # Man Lymphocytes # (Manual) APTT POC ABG pH ABG pH POC ABG pCO2 POC ABG pO2 ABG pO2 ABG HCO3 ABG Base Excess ABG Hemoglobin VBG pH Oxyhemoglobin Sodium Potassium Chloride Carbon Dioxide BUN Creatinine 0.6 L Glucose 189 H POC Glucose 147 H Lactic Acid Calcium 8.1 L AST Alkaline Phosphatase CK-MB (CK-2) CK-MB (CK-2) Rel Index Albumin TSH Urine WBC (Auto) Salicylates 02/02/17 02/03/17 02/03/17 23:32 05:53 11:19 WBC RBC Hgb Hct MCV MCH RDW Plt Count Lymph % (Auto) Maury % (Auto) Eos % (Auto) Seg Neutrophils % Seg Neuts % (Manual) Lymphocytes % (Manual) Seg Neutrophils # Seg Neutrophils # Man Lymphocytes # (Manual) APTT POC ABG pH ABG pH POC ABG pCO2 POC ABG pO2 ABG pO2 ABG HCO3 ABG Base Excess ABG Hemoglobin VBG pH Oxyhemoglobin Sodium Potassium Chloride Carbon Dioxide BUN Creatinine Glucose POC Glucose 176 H 224 H 228 H Lactic Acid Calcium AST Alkaline Phosphatase CK-MB (CK-2) CK-MB (CK-2) Rel Index Albumin TSH Urine WBC (Auto) Salicylates 02/03/17 02/03/17 02/04/17 16:59 23:38 05:45 WBC RBC Hgb Hct MCV MCH RDW Plt Count Lymph % (Auto) Maury % (Auto) Eos % (Auto) Seg Neutrophils % Seg Neuts % (Manual) Lymphocytes % (Manual) Seg Neutrophils # Seg Neutrophils # Man Lymphocytes # (Manual) APTT POC ABG pH ABG pH POC ABG pCO2 POC ABG pO2 ABG pO2 ABG HCO3 ABG Base Excess ABG Hemoglobin VBG pH Oxyhemoglobin Sodium Potassium Chloride Carbon Dioxide BUN Creatinine Glucose POC Glucose 189 H 191 H 251 H Lactic Acid Calcium AST Alkaline Phosphatase CK-MB (CK-2) CK-MB (CK-2) Rel Index Albumin TSH Urine WBC (Auto) Salicylates 02/04/17 02/04/17 02/05/17 11:20 17:20 00:17 WBC RBC Hgb Hct MCV MCH RDW Plt Count Lymph % (Auto) Maury % (Auto) Eos % (Auto) Seg Neutrophils % Seg Neuts % (Manual) Lymphocytes % (Manual) Seg Neutrophils # Seg Neutrophils # Man Lymphocytes # (Manual) APTT POC ABG pH ABG pH POC ABG pCO2 POC ABG pO2 ABG pO2 ABG HCO3 ABG Base Excess ABG Hemoglobin VBG pH Oxyhemoglobin Sodium Potassium Chloride Carbon Dioxide BUN Creatinine Glucose POC Glucose 243 H 163 H 200 H Lactic Acid Calcium AST Alkaline Phosphatase CK-MB (CK-2) CK-MB (CK-2) Rel Index Albumin TSH Urine WBC (Auto) Salicylates 02/05/17 02/05/17 02/05/17 05:38 12:38 16:29 WBC RBC Hgb Hct MCV MCH RDW Plt Count Lymph % (Auto) Maury % (Auto) Eos % (Auto) Seg Neutrophils % Seg Neuts % (Manual) Lymphocytes % (Manual) Seg Neutrophils # Seg Neutrophils # Man Lymphocytes # (Manual) APTT POC ABG pH ABG pH POC ABG pCO2 POC ABG pO2 ABG pO2 ABG HCO3 ABG Base Excess ABG Hemoglobin VBG pH Oxyhemoglobin Sodium Potassium Chloride Carbon Dioxide BUN Creatinine Glucose POC Glucose 248 H 241 H 257 H Lactic Acid Calcium AST Alkaline Phosphatase CK-MB (CK-2) CK-MB (CK-2) Rel Index Albumin TSH Urine WBC (Auto) Salicylates 02/05/17 02/06/17 02/06/17 23:56 05:30 11:50 WBC RBC Hgb Hct MCV MCH RDW Plt Count Lymph % (Auto) Maury % (Auto) Eos % (Auto) Seg Neutrophils % Seg Neuts % (Manual) Lymphocytes % (Manual) Seg Neutrophils # Seg Neutrophils # Man Lymphocytes # (Manual) APTT POC ABG pH ABG pH POC ABG pCO2 POC ABG pO2 ABG pO2 ABG HCO3 ABG Base Excess ABG Hemoglobin VBG pH Oxyhemoglobin Sodium Potassium Chloride Carbon Dioxide BUN Creatinine Glucose POC Glucose 258 H 120 H 254 H Lactic Acid Calcium AST Alkaline Phosphatase CK-MB (CK-2) CK-MB (CK-2) Rel Index Albumin TSH Urine WBC (Auto) Salicylates 02/06/17 02/06/17 02/07/17 17:11 23:50 05:22 WBC RBC Hgb Hct MCV MCH RDW Plt Count Lymph % (Auto) Maury % (Auto) Eos % (Auto) Seg Neutrophils % Seg Neuts % (Manual) Lymphocytes % (Manual) Seg Neutrophils # Seg Neutrophils # Man Lymphocytes # (Manual) APTT POC ABG pH ABG pH POC ABG pCO2 POC ABG pO2 ABG pO2 ABG HCO3 ABG Base Excess ABG Hemoglobin VBG pH Oxyhemoglobin Sodium Potassium Chloride Carbon Dioxide BUN Creatinine Glucose POC Glucose 149 H 240 H 258 H Lactic Acid Calcium AST Alkaline Phosphatase CK-MB (CK-2) CK-MB (CK-2) Rel Index Albumin TSH Urine WBC (Auto) Salicylates 02/07/17 02/07/17 02/07/17 11:15 18:33 23:59 WBC RBC Hgb Hct MCV MCH RDW Plt Count Lymph % (Auto) Maury % (Auto) Eos % (Auto) Seg Neutrophils % Seg Neuts % (Manual) Lymphocytes % (Manual) Seg Neutrophils # Seg Neutrophils # Man Lymphocytes # (Manual) APTT POC ABG pH ABG pH POC ABG pCO2 POC ABG pO2 ABG pO2 ABG HCO3 ABG Base Excess ABG Hemoglobin VBG pH Oxyhemoglobin Sodium Potassium Chloride Carbon Dioxide BUN Creatinine Glucose POC Glucose 239 H 176 H 186 H Lactic Acid Calcium AST Alkaline Phosphatase CK-MB (CK-2) CK-MB (CK-2) Rel Index Albumin TSH Urine WBC (Auto) Salicylates 02/08/17 02/08/17 02/08/17 06:15 11:55 16:55 WBC RBC Hgb Hct MCV MCH RDW Plt Count Lymph % (Auto) Maury % (Auto) Eos % (Auto) Seg Neutrophils % Seg Neuts % (Manual) Lymphocytes % (Manual) Seg Neutrophils # Seg Neutrophils # Man Lymphocytes # (Manual) APTT POC ABG pH ABG pH POC ABG pCO2 POC ABG pO2 ABG pO2 ABG HCO3 ABG Base Excess ABG Hemoglobin VBG pH Oxyhemoglobin Sodium Potassium Chloride Carbon Dioxide BUN Creatinine Glucose POC Glucose 195 H 129 H 246 H Lactic Acid Calcium AST Alkaline Phosphatase CK-MB (CK-2) CK-MB (CK-2) Rel Index Albumin TSH Urine WBC (Auto) Salicylates 02/08/17 02/09/17 02/09/17 23:51 05:51 07:24 WBC 14.7 H RBC 3.39 L Hgb 8.9 L Hct 26.4 L MCV 78 L MCH 26 L RDW 18.4 H Plt Count 670 H Lymph % (Auto) 11.8 L Maury % (Auto) Eos % (Auto) Seg Neutrophils % 81.2 H Seg Neuts % (Manual) Lymphocytes % (Manual) Seg Neutrophils # 11.9 H Seg Neutrophils # Man Lymphocytes # (Manual) APTT POC ABG pH ABG pH POC ABG pCO2 POC ABG pO2 ABG pO2 ABG HCO3 ABG Base Excess ABG Hemoglobin VBG pH Oxyhemoglobin Sodium Potassium Chloride Carbon Dioxide BUN Creatinine Glucose POC Glucose 262 H 295 H Lactic Acid Calcium AST Alkaline Phosphatase CK-MB (CK-2) CK-MB (CK-2) Rel Index Albumin TSH Urine WBC (Auto) Salicylates 02/09/17 02/09/17 02/09/17 07:24 12:08 18:39 WBC RBC Hgb Hct MCV MCH RDW Plt Count Lymph % (Auto) Maury % (Auto) Eos % (Auto) Seg Neutrophils % Seg Neuts % (Manual) Lymphocytes % (Manual) Seg Neutrophils # Seg Neutrophils # Man Lymphocytes # (Manual) APTT POC ABG pH ABG pH POC ABG pCO2 POC ABG pO2 ABG pO2 ABG HCO3 ABG Base Excess ABG Hemoglobin VBG pH Oxyhemoglobin Sodium Potassium Chloride 95.5 L Carbon Dioxide BUN 52 H Creatinine Glucose 277 H POC Glucose 236 H 151 H Lactic Acid Calcium AST Alkaline Phosphatase CK-MB (CK-2) CK-MB (CK-2) Rel Index Albumin TSH Urine WBC (Auto) Salicylates 02/10/17 02/10/17 02/10/17 00:01 05:44 11:21 WBC RBC Hgb Hct MCV MCH RDW Plt Count Lymph % (Auto) Maury % (Auto) Eos % (Auto) Seg Neutrophils % Seg Neuts % (Manual) Lymphocytes % (Manual) Seg Neutrophils # Seg Neutrophils # Man Lymphocytes # (Manual) APTT POC ABG pH ABG pH POC ABG pCO2 POC ABG pO2 ABG pO2 ABG HCO3 ABG Base Excess ABG Hemoglobin VBG pH Oxyhemoglobin Sodium Potassium Chloride Carbon Dioxide BUN Creatinine Glucose POC Glucose 210 H 201 H 233 H Lactic Acid Calcium AST Alkaline Phosphatase CK-MB (CK-2) CK-MB (CK-2) Rel Index Albumin TSH Urine WBC (Auto) Salicylates 02/10/17 02/10/17 02/11/17 17:29 23:56 05:24 WBC RBC Hgb Hct MCV MCH RDW Plt Count Lymph % (Auto) Maury % (Auto) Eos % (Auto) Seg Neutrophils % Seg Neuts % (Manual) Lymphocytes % (Manual) Seg Neutrophils # Seg Neutrophils # Man Lymphocytes # (Manual) APTT POC ABG pH ABG pH POC ABG pCO2 POC ABG pO2 ABG pO2 ABG HCO3 ABG Base Excess ABG Hemoglobin VBG pH Oxyhemoglobin Sodium Potassium Chloride Carbon Dioxide BUN Creatinine Glucose POC Glucose 167 H 191 H 135 H Lactic Acid Calcium AST Alkaline Phosphatase CK-MB (CK-2) CK-MB (CK-2) Rel Index Albumin TSH Urine WBC (Auto) Salicylates 02/11/17 02/11/17 02/11/17 12:25 17:03 23:59 WBC RBC Hgb Hct MCV MCH RDW Plt Count Lymph % (Auto) Maury % (Auto) Eos % (Auto) Seg Neutrophils % Seg Neuts % (Manual) Lymphocytes % (Manual) Seg Neutrophils # Seg Neutrophils # Man Lymphocytes # (Manual) APTT POC ABG pH ABG pH POC ABG pCO2 POC ABG pO2 ABG pO2 ABG HCO3 ABG Base Excess ABG Hemoglobin VBG pH Oxyhemoglobin Sodium Potassium Chloride Carbon Dioxide BUN Creatinine Glucose POC Glucose 275 H 172 H 215 H Lactic Acid Calcium AST Alkaline Phosphatase CK-MB (CK-2) CK-MB (CK-2) Rel Index Albumin TSH Urine WBC (Auto) Salicylates 02/12/17 02/12/17 02/12/17 05:39 11:33 17:55 WBC RBC Hgb Hct MCV MCH RDW Plt Count Lymph % (Auto) Maury % (Auto) Eos % (Auto) Seg Neutrophils % Seg Neuts % (Manual) Lymphocytes % (Manual) Seg Neutrophils # Seg Neutrophils # Man Lymphocytes # (Manual) APTT POC ABG pH ABG pH POC ABG pCO2 POC ABG pO2 ABG pO2 ABG HCO3 ABG Base Excess ABG Hemoglobin VBG pH Oxyhemoglobin Sodium Potassium Chloride Carbon Dioxide BUN Creatinine Glucose POC Glucose 261 H 217 H 172 H Lactic Acid Calcium AST Alkaline Phosphatase CK-MB (CK-2) CK-MB (CK-2) Rel Index Albumin TSH Urine WBC (Auto) Salicylates 02/13/17 02/13/17 02/13/17 00:25 06:46 11:26 WBC RBC Hgb Hct MCV MCH RDW Plt Count Lymph % (Auto) Maury % (Auto) Eos % (Auto) Seg Neutrophils % Seg Neuts % (Manual) Lymphocytes % (Manual) Seg Neutrophils # Seg Neutrophils # Man Lymphocytes # (Manual) APTT POC ABG pH ABG pH POC ABG pCO2 POC ABG pO2 ABG pO2 ABG HCO3 ABG Base Excess ABG Hemoglobin VBG pH Oxyhemoglobin Sodium Potassium Chloride Carbon Dioxide BUN Creatinine Glucose POC Glucose 207 H 219 H 231 H Lactic Acid Calcium AST Alkaline Phosphatase CK-MB (CK-2) CK-MB (CK-2) Rel Index Albumin TSH Urine WBC (Auto) Salicylates 02/13/17 02/13/17 02/14/17 17:12 23:44 05:44 WBC RBC Hgb Hct MCV MCH RDW Plt Count Lymph % (Auto) Maury % (Auto) Eos % (Auto) Seg Neutrophils % Seg Neuts % (Manual) Lymphocytes % (Manual) Seg Neutrophils # Seg Neutrophils # Man Lymphocytes # (Manual) APTT POC ABG pH ABG pH POC ABG pCO2 POC ABG pO2 ABG pO2 ABG HCO3 ABG Base Excess ABG Hemoglobin VBG pH Oxyhemoglobin Sodium Potassium Chloride Carbon Dioxide BUN Creatinine Glucose POC Glucose 190 H 256 H 184 H Lactic Acid Calcium AST Alkaline Phosphatase CK-MB (CK-2) CK-MB (CK-2) Rel Index Albumin TSH Urine WBC (Auto) Salicylates 02/14/17 02/14/17 02/14/17 12:21 17:57 23:18 WBC RBC Hgb Hct MCV MCH RDW Plt Count Lymph % (Auto) Maury % (Auto) Eos % (Auto) Seg Neutrophils % Seg Neuts % (Manual) Lymphocytes % (Manual) Seg Neutrophils # Seg Neutrophils # Man Lymphocytes # (Manual) APTT POC ABG pH ABG pH POC ABG pCO2 POC ABG pO2 ABG pO2 ABG HCO3 ABG Base Excess ABG Hemoglobin VBG pH Oxyhemoglobin Sodium Potassium Chloride Carbon Dioxide BUN Creatinine Glucose POC Glucose 233 H 155 H 165 H Lactic Acid Calcium AST Alkaline Phosphatase CK-MB (CK-2) CK-MB (CK-2) Rel Index Albumin TSH Urine WBC (Auto) Salicylates 02/15/17 02/15/17 02/15/17 05:33 11:45 17:20 WBC RBC Hgb Hct MCV MCH RDW Plt Count Lymph % (Auto) Maury % (Auto) Eos % (Auto) Seg Neutrophils % Seg Neuts % (Manual) Lymphocytes % (Manual) Seg Neutrophils # Seg Neutrophils # Man Lymphocytes # (Manual) APTT POC ABG pH ABG pH POC ABG pCO2 POC ABG pO2 ABG pO2 ABG HCO3 ABG Base Excess ABG Hemoglobin VBG pH Oxyhemoglobin Sodium Potassium Chloride Carbon Dioxide BUN Creatinine Glucose POC Glucose 239 H 130 H 189 H Lactic Acid Calcium AST Alkaline Phosphatase CK-MB (CK-2) CK-MB (CK-2) Rel Index Albumin TSH Urine WBC (Auto) Salicylates 02/16/17 02/16/17 02/16/17 00:14 05:09 12:31 WBC RBC Hgb Hct MCV MCH RDW Plt Count Lymph % (Auto) Maury % (Auto) Eos % (Auto) Seg Neutrophils % Seg Neuts % (Manual) Lymphocytes % (Manual) Seg Neutrophils # Seg Neutrophils # Man Lymphocytes # (Manual) APTT POC ABG pH ABG pH POC ABG pCO2 POC ABG pO2 ABG pO2 ABG HCO3 ABG Base Excess ABG Hemoglobin VBG pH Oxyhemoglobin Sodium Potassium Chloride Carbon Dioxide BUN Creatinine Glucose POC Glucose 197 H 226 H 178 H Lactic Acid Calcium AST Alkaline Phosphatase CK-MB (CK-2) CK-MB (CK-2) Rel Index Albumin TSH Urine WBC (Auto) Salicylates 02/16/17 02/16/17 02/17/17 16:35 23:49 05:37 WBC RBC Hgb Hct MCV MCH RDW Plt Count Lymph % (Auto) Maury % (Auto) Eos % (Auto) Seg Neutrophils % Seg Neuts % (Manual) Lymphocytes % (Manual) Seg Neutrophils # Seg Neutrophils # Man Lymphocytes # (Manual) APTT POC ABG pH ABG pH POC ABG pCO2 POC ABG pO2 ABG pO2 ABG HCO3 ABG Base Excess ABG Hemoglobin VBG pH Oxyhemoglobin Sodium Potassium Chloride Carbon Dioxide BUN Creatinine Glucose POC Glucose 174 H 62 L 153 H Lactic Acid Calcium AST Alkaline Phosphatase CK-MB (CK-2) CK-MB (CK-2) Rel Index Albumin TSH Urine WBC (Auto) Salicylates 02/17/17 02/17/17 02/17/17 11:39 17:02 22:24 WBC RBC Hgb Hct MCV MCH RDW Plt Count Lymph % (Auto) Maury % (Auto) Eos % (Auto) Seg Neutrophils % Seg Neuts % (Manual) Lymphocytes % (Manual) Seg Neutrophils # Seg Neutrophils # Man Lymphocytes # (Manual) APTT POC ABG pH ABG pH POC ABG pCO2 POC ABG pO2 ABG pO2 ABG HCO3 ABG Base Excess ABG Hemoglobin VBG pH Oxyhemoglobin Sodium Potassium Chloride Carbon Dioxide BUN Creatinine Glucose POC Glucose 231 H 112 H 116 H Lactic Acid Calcium AST Alkaline Phosphatase CK-MB (CK-2) CK-MB (CK-2) Rel Index Albumin TSH Urine WBC (Auto) Salicylates 02/18/17 02/19/17 02/19/17 15:34 05:09 07:57 WBC RBC Hgb Hct MCV MCH RDW Plt Count Lymph % (Auto) Maury % (Auto) Eos % (Auto) Seg Neutrophils % Seg Neuts % (Manual) Lymphocytes % (Manual) Seg Neutrophils # Seg Neutrophils # Man Lymphocytes # (Manual) APTT POC ABG pH ABG pH POC ABG pCO2 POC ABG pO2 ABG pO2 ABG HCO3 ABG Base Excess ABG Hemoglobin VBG pH Oxyhemoglobin Sodium Potassium Chloride Carbon Dioxide BUN Creatinine Glucose POC Glucose 215 H 218 H 283 H Lactic Acid Calcium AST Alkaline Phosphatase CK-MB (CK-2) CK-MB (CK-2) Rel Index Albumin TSH Urine WBC (Auto) Salicylates 02/19/17 02/19/17 02/20/17 14:49 22:10 05:10 WBC RBC Hgb Hct MCV MCH RDW Plt Count Lymph % (Auto) Maury % (Auto) Eos % (Auto) Seg Neutrophils % Seg Neuts % (Manual) Lymphocytes % (Manual) Seg Neutrophils # Seg Neutrophils # Man Lymphocytes # (Manual) APTT POC ABG pH ABG pH POC ABG pCO2 POC ABG pO2 ABG pO2 ABG HCO3 ABG Base Excess ABG Hemoglobin VBG pH Oxyhemoglobin Sodium Potassium Chloride Carbon Dioxide BUN Creatinine Glucose POC Glucose 290 H 169 H 209 H Lactic Acid Calcium AST Alkaline Phosphatase CK-MB (CK-2) CK-MB (CK-2) Rel Index Albumin TSH Urine WBC (Auto) Salicylates 02/20/17 02/20/17 02/21/17 15:05 21:52 02:00 WBC RBC Hgb Hct MCV MCH RDW Plt Count Lymph % (Auto) Maury % (Auto) Eos % (Auto) Seg Neutrophils % Seg Neuts % (Manual) Lymphocytes % (Manual) Seg Neutrophils # Seg Neutrophils # Man Lymphocytes # (Manual) APTT POC ABG pH ABG pH POC ABG pCO2 POC ABG pO2 ABG pO2 ABG HCO3 ABG Base Excess ABG Hemoglobin VBG pH Oxyhemoglobin Sodium Potassium Chloride Carbon Dioxide BUN Creatinine Glucose POC Glucose 172 H 209 H 216 H Lactic Acid Calcium AST Alkaline Phosphatase CK-MB (CK-2) CK-MB (CK-2) Rel Index Albumin TSH Urine WBC (Auto) Salicylates 02/21/17 02/21/17 02/21/17 04:54 14:43 17:47 WBC RBC Hgb Hct MCV MCH RDW Plt Count Lymph % (Auto) Maury % (Auto) Eos % (Auto) Seg Neutrophils % Seg Neuts % (Manual) Lymphocytes % (Manual) Seg Neutrophils # Seg Neutrophils # Man Lymphocytes # (Manual) APTT POC ABG pH ABG pH POC ABG pCO2 POC ABG pO2 ABG pO2 ABG HCO3 ABG Base Excess ABG Hemoglobin VBG pH Oxyhemoglobin Sodium Potassium Chloride Carbon Dioxide BUN Creatinine Glucose POC Glucose 227 H 290 H 220 H Lactic Acid Calcium AST Alkaline Phosphatase CK-MB (CK-2) CK-MB (CK-2) Rel Index Albumin TSH Urine WBC (Auto) Salicylates 02/21/17 02/22/17 02/22/17 22:02 04:52 15:25 WBC RBC Hgb Hct MCV MCH RDW Plt Count Lymph % (Auto) Maury % (Auto) Eos % (Auto) Seg Neutrophils % Seg Neuts % (Manual) Lymphocytes % (Manual) Seg Neutrophils # Seg Neutrophils # Man Lymphocytes # (Manual) APTT POC ABG pH ABG pH POC ABG pCO2 POC ABG pO2 ABG pO2 ABG HCO3 ABG Base Excess ABG Hemoglobin VBG pH Oxyhemoglobin Sodium Potassium Chloride Carbon Dioxide BUN Creatinine Glucose POC Glucose 246 H 212 H 236 H Lactic Acid Calcium AST Alkaline Phosphatase CK-MB (CK-2) CK-MB (CK-2) Rel Index Albumin TSH Urine WBC (Auto) Salicylates 02/22/17 02/23/17 02/23/17 21:33 06:04 10:00 WBC RBC Hgb Hct MCV MCH RDW Plt Count Lymph % (Auto) Maury % (Auto) Eos % (Auto) Seg Neutrophils % Seg Neuts % (Manual) Lymphocytes % (Manual) Seg Neutrophils # Seg Neutrophils # Man Lymphocytes # (Manual) APTT POC ABG pH ABG pH POC ABG pCO2 POC ABG pO2 ABG pO2 ABG HCO3 ABG Base Excess ABG Hemoglobin VBG pH Oxyhemoglobin Sodium Potassium Chloride Carbon Dioxide BUN Creatinine Glucose POC Glucose 255 H 208 H 174 H Lactic Acid Calcium AST Alkaline Phosphatase CK-MB (CK-2) CK-MB (CK-2) Rel Index Albumin TSH Urine WBC (Auto) Salicylates 02/23/17 02/23/17 02/23/17 12:52 17:15 21:51 WBC RBC Hgb Hct MCV MCH RDW Plt Count Lymph % (Auto) Maury % (Auto) Eos % (Auto) Seg Neutrophils % Seg Neuts % (Manual) Lymphocytes % (Manual) Seg Neutrophils # Seg Neutrophils # Man Lymphocytes # (Manual) APTT POC ABG pH ABG pH POC ABG pCO2 POC ABG pO2 ABG pO2 ABG HCO3 ABG Base Excess ABG Hemoglobin VBG pH Oxyhemoglobin Sodium Potassium Chloride Carbon Dioxide BUN Creatinine Glucose POC Glucose 203 H 269 H 205 H Lactic Acid Calcium AST Alkaline Phosphatase CK-MB (CK-2) CK-MB (CK-2) Rel Index Albumin TSH Urine WBC (Auto) Salicylates 02/24/17 02/24/17 02/24/17 10:23 17:45 21:24 WBC RBC Hgb Hct MCV MCH RDW Plt Count Lymph % (Auto) Maury % (Auto) Eos % (Auto) Seg Neutrophils % Seg Neuts % (Manual) Lymphocytes % (Manual) Seg Neutrophils # Seg Neutrophils # Man Lymphocytes # (Manual) APTT POC ABG pH ABG pH POC ABG pCO2 POC ABG pO2 ABG pO2 ABG HCO3 ABG Base Excess ABG Hemoglobin VBG pH Oxyhemoglobin Sodium Potassium Chloride Carbon Dioxide BUN Creatinine Glucose POC Glucose 280 H 239 H 254 H Lactic Acid Calcium AST Alkaline Phosphatase CK-MB (CK-2) CK-MB (CK-2) Rel Index Albumin TSH Urine WBC (Auto) Salicylates 02/25/17 02/25/17 02/25/17 02:12 05:17 14:32 WBC RBC Hgb Hct MCV MCH RDW Plt Count Lymph % (Auto) Maury % (Auto) Eos % (Auto) Seg Neutrophils % Seg Neuts % (Manual) Lymphocytes % (Manual) Seg Neutrophils # Seg Neutrophils # Man Lymphocytes # (Manual) APTT POC ABG pH ABG pH POC ABG pCO2 POC ABG pO2 ABG pO2 ABG HCO3 ABG Base Excess ABG Hemoglobin VBG pH Oxyhemoglobin Sodium Potassium Chloride Carbon Dioxide BUN Creatinine Glucose POC Glucose 296 H 332 H 353 H Lactic Acid Calcium AST Alkaline Phosphatase CK-MB (CK-2) CK-MB (CK-2) Rel Index Albumin TSH Urine WBC (Auto) Salicylates 02/25/17 02/26/17 02/26/17 22:14 00:37 05:52 WBC RBC Hgb Hct MCV MCH RDW Plt Count Lymph % (Auto) Maury % (Auto) Eos % (Auto) Seg Neutrophils % Seg Neuts % (Manual) Lymphocytes % (Manual) Seg Neutrophils # Seg Neutrophils # Man Lymphocytes # (Manual) APTT POC ABG pH ABG pH POC ABG pCO2 POC ABG pO2 ABG pO2 ABG HCO3 ABG Base Excess ABG Hemoglobin VBG pH Oxyhemoglobin Sodium Potassium Chloride Carbon Dioxide BUN Creatinine Glucose POC Glucose 201 H 233 H 269 H Lactic Acid Calcium AST Alkaline Phosphatase CK-MB (CK-2) CK-MB (CK-2) Rel Index Albumin TSH Urine WBC (Auto) Salicylates 02/26/17 02/26/17 02/26/17 11:48 13:49 21:26 WBC RBC Hgb Hct MCV MCH RDW Plt Count Lymph % (Auto) Maury % (Auto) Eos % (Auto) Seg Neutrophils % Seg Neuts % (Manual) Lymphocytes % (Manual) Seg Neutrophils # Seg Neutrophils # Man Lymphocytes # (Manual) APTT POC ABG pH ABG pH POC ABG pCO2 POC ABG pO2 ABG pO2 ABG HCO3 ABG Base Excess ABG Hemoglobin VBG pH Oxyhemoglobin Sodium Potassium Chloride Carbon Dioxide BUN Creatinine Glucose POC Glucose 333 H 322 H 244 H Lactic Acid Calcium AST Alkaline Phosphatase CK-MB (CK-2) CK-MB (CK-2) Rel Index Albumin TSH Urine WBC (Auto) Salicylates 02/27/17 02/27/17 02/27/17 05:27 13:51 21:48 WBC RBC Hgb Hct MCV MCH RDW Plt Count Lymph % (Auto) Maury % (Auto) Eos % (Auto) Seg Neutrophils % Seg Neuts % (Manual) Lymphocytes % (Manual) Seg Neutrophils # Seg Neutrophils # Man Lymphocytes # (Manual) APTT POC ABG pH ABG pH POC ABG pCO2 POC ABG pO2 ABG pO2 ABG HCO3 ABG Base Excess ABG Hemoglobin VBG pH Oxyhemoglobin Sodium Potassium Chloride Carbon Dioxide BUN Creatinine Glucose POC Glucose 217 H 239 H 254 H Lactic Acid Calcium AST Alkaline Phosphatase CK-MB (CK-2) CK-MB (CK-2) Rel Index Albumin TSH Urine WBC (Auto) Salicylates 02/28/17 02/28/17 02/28/17 05:38 11:00 19:44 WBC RBC Hgb Hct MCV MCH RDW Plt Count Lymph % (Auto) Maury % (Auto) Eos % (Auto) Seg Neutrophils % Seg Neuts % (Manual) Lymphocytes % (Manual) Seg Neutrophils # Seg Neutrophils # Man Lymphocytes # (Manual) APTT POC ABG pH ABG pH POC ABG pCO2 POC ABG pO2 ABG pO2 ABG HCO3 ABG Base Excess ABG Hemoglobin VBG pH Oxyhemoglobin Sodium Potassium Chloride Carbon Dioxide BUN Creatinine Glucose POC Glucose 325 H 203 H 116 H Lactic Acid Calcium AST Alkaline Phosphatase CK-MB (CK-2) CK-MB (CK-2) Rel Index Albumin TSH Urine WBC (Auto) Salicylates 03/01/17 03/01/17 03/01/17 00:08 05:31 12:17 WBC RBC Hgb Hct MCV MCH RDW Plt Count Lymph % (Auto) Maury % (Auto) Eos % (Auto) Seg Neutrophils % Seg Neuts % (Manual) Lymphocytes % (Manual) Seg Neutrophils # Seg Neutrophils # Man Lymphocytes # (Manual) APTT POC ABG pH ABG pH POC ABG pCO2 POC ABG pO2 ABG pO2 ABG HCO3 ABG Base Excess ABG Hemoglobin VBG pH Oxyhemoglobin Sodium Potassium Chloride Carbon Dioxide BUN Creatinine Glucose POC Glucose 202 H 183 H 184 H Lactic Acid Calcium AST Alkaline Phosphatase CK-MB (CK-2) CK-MB (CK-2) Rel Index Albumin TSH Urine WBC (Auto) Salicylates 03/02/17 03/02/17 03/02/17 00:12 05:58 18:22 WBC RBC Hgb Hct MCV MCH RDW Plt Count Lymph % (Auto) Maury % (Auto) Eos % (Auto) Seg Neutrophils % Seg Neuts % (Manual) Lymphocytes % (Manual) Seg Neutrophils # Seg Neutrophils # Man Lymphocytes # (Manual) APTT POC ABG pH ABG pH POC ABG pCO2 POC ABG pO2 ABG pO2 ABG HCO3 ABG Base Excess ABG Hemoglobin VBG pH Oxyhemoglobin Sodium Potassium Chloride Carbon Dioxide BUN Creatinine Glucose POC Glucose 117 H 176 H 156 H Lactic Acid Calcium AST Alkaline Phosphatase CK-MB (CK-2) CK-MB (CK-2) Rel Index Albumin TSH Urine WBC (Auto) Salicylates 03/02/17 03/03/17 03/03/17 23:51 05:44 11:32 WBC RBC Hgb Hct MCV MCH RDW Plt Count Lymph % (Auto) Maury % (Auto) Eos % (Auto) Seg Neutrophils % Seg Neuts % (Manual) Lymphocytes % (Manual) Seg Neutrophils # Seg Neutrophils # Man Lymphocytes # (Manual) APTT POC ABG pH ABG pH POC ABG pCO2 POC ABG pO2 ABG pO2 ABG HCO3 ABG Base Excess ABG Hemoglobin VBG pH Oxyhemoglobin Sodium Potassium Chloride Carbon Dioxide BUN Creatinine Glucose POC Glucose 211 H 117 H 133 H Lactic Acid Calcium AST Alkaline Phosphatase CK-MB (CK-2) CK-MB (CK-2) Rel Index Albumin TSH Urine WBC (Auto) Salicylates 03/03/17 03/03/17 03/04/17 17:43 23:17 05:30 WBC RBC Hgb Hct MCV MCH RDW Plt Count Lymph % (Auto) Maury % (Auto) Eos % (Auto) Seg Neutrophils % Seg Neuts % (Manual) Lymphocytes % (Manual) Seg Neutrophils # Seg Neutrophils # Man Lymphocytes # (Manual) APTT POC ABG pH ABG pH POC ABG pCO2 POC ABG pO2 ABG pO2 ABG HCO3 ABG Base Excess ABG Hemoglobin VBG pH Oxyhemoglobin Sodium Potassium Chloride Carbon Dioxide BUN Creatinine Glucose POC Glucose 206 H 170 H 126 H Lactic Acid Calcium AST Alkaline Phosphatase CK-MB (CK-2) CK-MB (CK-2) Rel Index Albumin TSH Urine WBC (Auto) Salicylates 03/04/17 03/04/17 03/05/17 12:17 17:27 05:20 WBC RBC Hgb Hct MCV MCH RDW Plt Count Lymph % (Auto) Maury % (Auto) Eos % (Auto) Seg Neutrophils % Seg Neuts % (Manual) Lymphocytes % (Manual) Seg Neutrophils # Seg Neutrophils # Man Lymphocytes # (Manual) APTT POC ABG pH ABG pH POC ABG pCO2 POC ABG pO2 ABG pO2 ABG HCO3 ABG Base Excess ABG Hemoglobin VBG pH Oxyhemoglobin Sodium Potassium Chloride Carbon Dioxide BUN Creatinine Glucose POC Glucose 135 H 121 H 185 H Lactic Acid Calcium AST Alkaline Phosphatase CK-MB (CK-2) CK-MB (CK-2) Rel Index Albumin TSH Urine WBC (Auto) Salicylates 03/05/17 03/06/17 03/06/17 11:50 11:52 17:34 WBC RBC Hgb Hct MCV MCH RDW Plt Count Lymph % (Auto) Maury % (Auto) Eos % (Auto) Seg Neutrophils % Seg Neuts % (Manual) Lymphocytes % (Manual) Seg Neutrophils # Seg Neutrophils # Man Lymphocytes # (Manual) APTT POC ABG pH ABG pH POC ABG pCO2 POC ABG pO2 ABG pO2 ABG HCO3 ABG Base Excess ABG Hemoglobin VBG pH Oxyhemoglobin Sodium Potassium Chloride Carbon Dioxide BUN Creatinine Glucose POC Glucose 116 H 133 H 181 H Lactic Acid Calcium AST Alkaline Phosphatase CK-MB (CK-2) CK-MB (CK-2) Rel Index Albumin TSH Urine WBC (Auto) Salicylates 03/07/17 03/07/17 03/07/17 05:21 11:36 17:49 WBC RBC Hgb Hct MCV MCH RDW Plt Count Lymph % (Auto) Maury % (Auto) Eos % (Auto) Seg Neutrophils % Seg Neuts % (Manual) Lymphocytes % (Manual) Seg Neutrophils # Seg Neutrophils # Man Lymphocytes # (Manual) APTT POC ABG pH ABG pH POC ABG pCO2 POC ABG pO2 ABG pO2 ABG HCO3 ABG Base Excess ABG Hemoglobin VBG pH Oxyhemoglobin Sodium Potassium Chloride Carbon Dioxide BUN Creatinine Glucose POC Glucose 159 H 137 H 158 H Lactic Acid Calcium AST Alkaline Phosphatase CK-MB (CK-2) CK-MB (CK-2) Rel Index Albumin TSH Urine WBC (Auto) Salicylates 03/08/17 03/08/17 03/08/17 05:51 13:58 23:50 WBC RBC Hgb Hct MCV MCH RDW Plt Count Lymph % (Auto) Maury % (Auto) Eos % (Auto) Seg Neutrophils % Seg Neuts % (Manual) Lymphocytes % (Manual) Seg Neutrophils # Seg Neutrophils # Man Lymphocytes # (Manual) APTT POC ABG pH ABG pH POC ABG pCO2 POC ABG pO2 ABG pO2 ABG HCO3 ABG Base Excess ABG Hemoglobin VBG pH Oxyhemoglobin Sodium Potassium Chloride Carbon Dioxide BUN Creatinine Glucose POC Glucose 122 H 182 H 114 H Lactic Acid Calcium AST Alkaline Phosphatase CK-MB (CK-2) CK-MB (CK-2) Rel Index Albumin TSH Urine WBC (Auto) Salicylates 03/09/17 03/09/17 03/09/17 05:21 05:51 05:51 WBC RBC 3.61 L Hgb 9.5 L Hct 28.3 L MCV 79 L MCH 26 L RDW 17.8 H Plt Count Lymph % (Auto) Maury % (Auto) Eos % (Auto) Seg Neutrophils % Seg Neuts % (Manual) Lymphocytes % (Manual) Seg Neutrophils # Seg Neutrophils # Man Lymphocytes # (Manual) APTT POC ABG pH ABG pH POC ABG pCO2 POC ABG pO2 ABG pO2 ABG HCO3 ABG Base Excess ABG Hemoglobin VBG pH Oxyhemoglobin Sodium 134 L Potassium Chloride 95.5 L Carbon Dioxide BUN 33 H Creatinine 0.5 L Glucose 143 H POC Glucose 153 H Lactic Acid Calcium AST Alkaline Phosphatase CK-MB (CK-2) CK-MB (CK-2) Rel Index Albumin TSH Urine WBC (Auto) Salicylates 03/09/17 03/09/17 03/09/17 12:10 18:13 21:00 WBC RBC Hgb Hct MCV MCH RDW Plt Count Lymph % (Auto) Maury % (Auto) Eos % (Auto) Seg Neutrophils % Seg Neuts % (Manual) Lymphocytes % (Manual) Seg Neutrophils # Seg Neutrophils # Man Lymphocytes # (Manual) APTT POC ABG pH ABG pH POC ABG pCO2 POC ABG pO2 ABG pO2 ABG HCO3 ABG Base Excess ABG Hemoglobin VBG pH Oxyhemoglobin Sodium Potassium Chloride Carbon Dioxide BUN Creatinine Glucose POC Glucose 203 H 221 H 198 H Lactic Acid Calcium AST Alkaline Phosphatase CK-MB (CK-2) CK-MB (CK-2) Rel Index Albumin TSH Urine WBC (Auto) Salicylates 03/09/17 03/10/17 03/10/17 23:58 05:09 05:09 WBC RBC Hgb 10.3 L Hct 30.5 L MCV 78 L MCH 26 L RDW 17.9 H Plt Count Lymph % (Auto) Maury % (Auto) 10.0 H Eos % (Auto) 6.0 H Seg Neutrophils % Seg Neuts % (Manual) Lymphocytes % (Manual) Seg Neutrophils # Seg Neutrophils # Man Lymphocytes # (Manual) APTT POC ABG pH ABG pH POC ABG pCO2 POC ABG pO2 ABG pO2 ABG HCO3 ABG Base Excess ABG Hemoglobin VBG pH Oxyhemoglobin Sodium 132 L Potassium Chloride 92.2 L Carbon Dioxide BUN 33 H Creatinine 0.5 L Glucose 50 L POC Glucose 167 H Lactic Acid Calcium AST Alkaline Phosphatase CK-MB (CK-2) CK-MB (CK-2) Rel Index Albumin TSH Urine WBC (Auto) Salicylates 03/10/17 03/10/17 03/10/17 05:33 05:34 11:48 WBC RBC Hgb Hct MCV MCH RDW Plt Count Lymph % (Auto) Maury % (Auto) Eos % (Auto) Seg Neutrophils % Seg Neuts % (Manual) Lymphocytes % (Manual) Seg Neutrophils # Seg Neutrophils # Man Lymphocytes # (Manual) APTT POC ABG pH ABG pH POC ABG pCO2 POC ABG pO2 ABG pO2 ABG HCO3 ABG Base Excess ABG Hemoglobin VBG pH Oxyhemoglobin Sodium Potassium Chloride Carbon Dioxide BUN Creatinine Glucose POC Glucose 52 L 53 L 148 H Lactic Acid Calcium AST Alkaline Phosphatase CK-MB (CK-2) CK-MB (CK-2) Rel Index Albumin TSH Urine WBC (Auto) Salicylates 03/10/17 03/10/17 03/11/17 17:53 23:47 05:18 WBC RBC Hgb Hct MCV MCH RDW Plt Count Lymph % (Auto) Maury % (Auto) Eos % (Auto) Seg Neutrophils % Seg Neuts % (Manual) Lymphocytes % (Manual) Seg Neutrophils # Seg Neutrophils # Man Lymphocytes # (Manual) APTT POC ABG pH ABG pH POC ABG pCO2 POC ABG pO2 ABG pO2 ABG HCO3 ABG Base Excess ABG Hemoglobin VBG pH Oxyhemoglobin Sodium Potassium Chloride Carbon Dioxide BUN Creatinine Glucose POC Glucose 189 H 398 H 126 H Lactic Acid Calcium AST Alkaline Phosphatase CK-MB (CK-2) CK-MB (CK-2) Rel Index Albumin TSH Urine WBC (Auto) Salicylates 03/11/17 03/11/17 03/11/17 11:53 17:30 23:10 WBC RBC Hgb Hct MCV MCH RDW Plt Count Lymph % (Auto) Maury % (Auto) Eos % (Auto) Seg Neutrophils % Seg Neuts % (Manual) Lymphocytes % (Manual) Seg Neutrophils # Seg Neutrophils # Man Lymphocytes # (Manual) APTT POC ABG pH ABG pH POC ABG pCO2 POC ABG pO2 ABG pO2 ABG HCO3 ABG Base Excess ABG Hemoglobin VBG pH Oxyhemoglobin Sodium Potassium Chloride Carbon Dioxide BUN Creatinine Glucose POC Glucose 198 H 142 H 244 H Lactic Acid Calcium AST Alkaline Phosphatase CK-MB (CK-2) CK-MB (CK-2) Rel Index Albumin TSH Urine WBC (Auto) Salicylates 03/12/17 03/12/17 03/12/17 04:36 11:49 17:23 WBC RBC Hgb Hct MCV MCH RDW Plt Count Lymph % (Auto) Maury % (Auto) Eos % (Auto) Seg Neutrophils % Seg Neuts % (Manual) Lymphocytes % (Manual) Seg Neutrophils # Seg Neutrophils # Man Lymphocytes # (Manual) APTT POC ABG pH ABG pH POC ABG pCO2 POC ABG pO2 ABG pO2 ABG HCO3 ABG Base Excess ABG Hemoglobin VBG pH Oxyhemoglobin Sodium Potassium Chloride Carbon Dioxide BUN Creatinine Glucose POC Glucose 205 H 197 H 209 H Lactic Acid Calcium AST Alkaline Phosphatase CK-MB (CK-2) CK-MB (CK-2) Rel Index Albumin TSH Urine WBC (Auto) Salicylates 03/12/17 03/13/17 03/13/17 23:51 05:32 11:43 WBC RBC Hgb Hct MCV MCH RDW Plt Count Lymph % (Auto) Maury % (Auto) Eos % (Auto) Seg Neutrophils % Seg Neuts % (Manual) Lymphocytes % (Manual) Seg Neutrophils # Seg Neutrophils # Man Lymphocytes # (Manual) APTT POC ABG pH ABG pH POC ABG pCO2 POC ABG pO2 ABG pO2 ABG HCO3 ABG Base Excess ABG Hemoglobin VBG pH Oxyhemoglobin Sodium Potassium Chloride Carbon Dioxide BUN Creatinine Glucose POC Glucose 210 H 154 H 164 H Lactic Acid Calcium AST Alkaline Phosphatase CK-MB (CK-2) CK-MB (CK-2) Rel Index Albumin TSH Urine WBC (Auto) Salicylates 03/13/17 03/13/17 03/14/17 17:11 23:26 05:42 WBC RBC Hgb Hct MCV MCH RDW Plt Count Lymph % (Auto) Maury % (Auto) Eos % (Auto) Seg Neutrophils % Seg Neuts % (Manual) Lymphocytes % (Manual) Seg Neutrophils # Seg Neutrophils # Man Lymphocytes # (Manual) APTT POC ABG pH ABG pH POC ABG pCO2 POC ABG pO2 ABG pO2 ABG HCO3 ABG Base Excess ABG Hemoglobin VBG pH Oxyhemoglobin Sodium Potassium Chloride Carbon Dioxide BUN Creatinine Glucose POC Glucose 195 H 240 H 230 H Lactic Acid Calcium AST Alkaline Phosphatase CK-MB (CK-2) CK-MB (CK-2) Rel Index Albumin TSH Urine WBC (Auto) Salicylates 03/14/17 03/14/17 03/14/17 14:04 17:34 23:42 WBC RBC Hgb Hct MCV MCH RDW Plt Count Lymph % (Auto) Maury % (Auto) Eos % (Auto) Seg Neutrophils % Seg Neuts % (Manual) Lymphocytes % (Manual) Seg Neutrophils # Seg Neutrophils # Man Lymphocytes # (Manual) APTT POC ABG pH ABG pH POC ABG pCO2 POC ABG pO2 ABG pO2 ABG HCO3 ABG Base Excess ABG Hemoglobin VBG pH Oxyhemoglobin Sodium Potassium Chloride Carbon Dioxide BUN Creatinine Glucose POC Glucose 227 H 186 H 225 H Lactic Acid Calcium AST Alkaline Phosphatase CK-MB (CK-2) CK-MB (CK-2) Rel Index Albumin TSH Urine WBC (Auto) Salicylates 03/15/17 03/15/17 03/15/17 05:21 17:13 21:37 WBC RBC Hgb Hct MCV MCH RDW Plt Count Lymph % (Auto) Maury % (Auto) Eos % (Auto) Seg Neutrophils % Seg Neuts % (Manual) Lymphocytes % (Manual) Seg Neutrophils # Seg Neutrophils # Man Lymphocytes # (Manual) APTT POC ABG pH ABG pH POC ABG pCO2 POC ABG pO2 ABG pO2 ABG HCO3 ABG Base Excess ABG Hemoglobin VBG pH Oxyhemoglobin Sodium Potassium Chloride Carbon Dioxide BUN Creatinine Glucose POC Glucose 244 H 203 H 216 H Lactic Acid Calcium AST Alkaline Phosphatase CK-MB (CK-2) CK-MB (CK-2) Rel Index Albumin TSH Urine WBC (Auto) Salicylates 03/16/17 03/16/17 03/16/17 05:52 18:07 21:54 WBC RBC Hgb Hct MCV MCH RDW Plt Count Lymph % (Auto) Maury % (Auto) Eos % (Auto) Seg Neutrophils % Seg Neuts % (Manual) Lymphocytes % (Manual) Seg Neutrophils # Seg Neutrophils # Man Lymphocytes # (Manual) APTT POC ABG pH ABG pH POC ABG pCO2 POC ABG pO2 ABG pO2 ABG HCO3 ABG Base Excess ABG Hemoglobin VBG pH Oxyhemoglobin Sodium Potassium Chloride Carbon Dioxide BUN Creatinine Glucose POC Glucose 248 H 254 H 244 H Lactic Acid Calcium AST Alkaline Phosphatase CK-MB (CK-2) CK-MB (CK-2) Rel Index Albumin TSH Urine WBC (Auto) Salicylates 03/17/17 03/17/17 03/17/17 07:07 07:42 07:43 WBC RBC Hgb 9.7 L Hct 29.1 L MCV 78 L MCH 26 L RDW 17.4 H Plt Count Lymph % (Auto) Maury % (Auto) Eos % (Auto) Seg Neutrophils % Seg Neuts % (Manual) Lymphocytes % (Manual) Seg Neutrophils # Seg Neutrophils # Man Lymphocytes # (Manual) APTT POC ABG pH ABG pH POC ABG pCO2 POC ABG pO2 ABG pO2 ABG HCO3 ABG Base Excess ABG Hemoglobin VBG pH Oxyhemoglobin Sodium Potassium Chloride 96.6 L Carbon Dioxide BUN 30 H Creatinine 0.5 L Glucose 251 H POC Glucose 222 H Lactic Acid Calcium AST Alkaline Phosphatase CK-MB (CK-2) CK-MB (CK-2) Rel Index Albumin TSH Urine WBC (Auto) Salicylates 03/17/17 03/17/17 03/18/17 14:08 21:20 14:24 WBC RBC Hgb Hct MCV MCH RDW Plt Count Lymph % (Auto) Maury % (Auto) Eos % (Auto) Seg Neutrophils % Seg Neuts % (Manual) Lymphocytes % (Manual) Seg Neutrophils # Seg Neutrophils # Man Lymphocytes # (Manual) APTT POC ABG pH ABG pH POC ABG pCO2 POC ABG pO2 ABG pO2 ABG HCO3 ABG Base Excess ABG Hemoglobin VBG pH Oxyhemoglobin Sodium Potassium Chloride Carbon Dioxide BUN Creatinine Glucose POC Glucose 281 H 239 H 195 H Lactic Acid Calcium AST Alkaline Phosphatase CK-MB (CK-2) CK-MB (CK-2) Rel Index Albumin TSH Urine WBC (Auto) Salicylates 03/18/17 03/19/17 03/19/17 21:37 04:57 14:23 WBC RBC Hgb Hct MCV MCH RDW Plt Count Lymph % (Auto) Maury % (Auto) Eos % (Auto) Seg Neutrophils % Seg Neuts % (Manual) Lymphocytes % (Manual) Seg Neutrophils # Seg Neutrophils # Man Lymphocytes # (Manual) APTT POC ABG pH ABG pH POC ABG pCO2 POC ABG pO2 ABG pO2 ABG HCO3 ABG Base Excess ABG Hemoglobin VBG pH Oxyhemoglobin Sodium Potassium Chloride Carbon Dioxide BUN Creatinine Glucose POC Glucose 227 H 205 H 277 H Lactic Acid Calcium AST Alkaline Phosphatase CK-MB (CK-2) CK-MB (CK-2) Rel Index Albumin TSH Urine WBC (Auto) Salicylates 03/19/17 03/19/17 03/20/17 20:31 21:47 04:55 WBC RBC Hgb Hct MCV MCH RDW Plt Count Lymph % (Auto) Maury % (Auto) Eos % (Auto) Seg Neutrophils % Seg Neuts % (Manual) Lymphocytes % (Manual) Seg Neutrophils # Seg Neutrophils # Man Lymphocytes # (Manual) APTT POC ABG pH ABG pH POC ABG pCO2 POC ABG pO2 ABG pO2 ABG HCO3 ABG Base Excess ABG Hemoglobin VBG pH Oxyhemoglobin Sodium Potassium Chloride Carbon Dioxide BUN Creatinine Glucose POC Glucose 256 H 270 H 202 H Lactic Acid Calcium AST Alkaline Phosphatase CK-MB (CK-2) CK-MB (CK-2) Rel Index Albumin TSH Urine WBC (Auto) Salicylates 03/20/17 03/20/17 03/21/17 14:09 21:40 05:09 WBC RBC Hgb Hct MCV MCH RDW Plt Count Lymph % (Auto) Maury % (Auto) Eos % (Auto) Seg Neutrophils % Seg Neuts % (Manual) Lymphocytes % (Manual) Seg Neutrophils # Seg Neutrophils # Man Lymphocytes # (Manual) APTT POC ABG pH ABG pH POC ABG pCO2 POC ABG pO2 ABG pO2 ABG HCO3 ABG Base Excess ABG Hemoglobin VBG pH Oxyhemoglobin Sodium Potassium Chloride Carbon Dioxide BUN Creatinine Glucose POC Glucose 200 H 214 H 233 H Lactic Acid Calcium AST Alkaline Phosphatase CK-MB (CK-2) CK-MB (CK-2) Rel Index Albumin TSH Urine WBC (Auto) Salicylates 03/21/17 03/21/17 03/22/17 14:06 21:26 05:43 WBC RBC Hgb Hct MCV MCH RDW Plt Count Lymph % (Auto) Maury % (Auto) Eos % (Auto) Seg Neutrophils % Seg Neuts % (Manual) Lymphocytes % (Manual) Seg Neutrophils # Seg Neutrophils # Man Lymphocytes # (Manual) APTT POC ABG pH ABG pH POC ABG pCO2 POC ABG pO2 ABG pO2 ABG HCO3 ABG Base Excess ABG Hemoglobin VBG pH Oxyhemoglobin Sodium Potassium Chloride Carbon Dioxide BUN Creatinine Glucose POC Glucose 250 H 155 H 251 H Lactic Acid Calcium AST Alkaline Phosphatase CK-MB (CK-2) CK-MB (CK-2) Rel Index Albumin TSH Urine WBC (Auto) Salicylates 03/22/17 03/22/17 03/23/17 13:46 21:16 00:23 WBC RBC Hgb Hct MCV MCH RDW Plt Count Lymph % (Auto) Maury % (Auto) Eos % (Auto) Seg Neutrophils % Seg Neuts % (Manual) Lymphocytes % (Manual) Seg Neutrophils # Seg Neutrophils # Man Lymphocytes # (Manual) APTT POC ABG pH ABG pH POC ABG pCO2 POC ABG pO2 ABG pO2 ABG HCO3 ABG Base Excess ABG Hemoglobin VBG pH Oxyhemoglobin Sodium Potassium Chloride Carbon Dioxide BUN Creatinine Glucose POC Glucose 269 H 197 H 126 H Lactic Acid Calcium AST Alkaline Phosphatase CK-MB (CK-2) CK-MB (CK-2) Rel Index Albumin TSH Urine WBC (Auto) Salicylates 03/23/17 03/23/17 03/23/17 05:39 14:06 21:39 WBC RBC Hgb Hct MCV MCH RDW Plt Count Lymph % (Auto) Maury % (Auto) Eos % (Auto) Seg Neutrophils % Seg Neuts % (Manual) Lymphocytes % (Manual) Seg Neutrophils # Seg Neutrophils # Man Lymphocytes # (Manual) APTT POC ABG pH ABG pH POC ABG pCO2 POC ABG pO2 ABG pO2 ABG HCO3 ABG Base Excess ABG Hemoglobin VBG pH Oxyhemoglobin Sodium Potassium Chloride Carbon Dioxide BUN Creatinine Glucose POC Glucose 234 H 241 H 248 H Lactic Acid Calcium AST Alkaline Phosphatase CK-MB (CK-2) CK-MB (CK-2) Rel Index Albumin TSH Urine WBC (Auto) Salicylates 03/24/17 03/24/17 03/25/17 05:06 21:46 05:38 WBC RBC Hgb Hct MCV MCH RDW Plt Count Lymph % (Auto) Maury % (Auto) Eos % (Auto) Seg Neutrophils % Seg Neuts % (Manual) Lymphocytes % (Manual) Seg Neutrophils # Seg Neutrophils # Man Lymphocytes # (Manual) APTT POC ABG pH ABG pH POC ABG pCO2 POC ABG pO2 ABG pO2 ABG HCO3 ABG Base Excess ABG Hemoglobin VBG pH Oxyhemoglobin Sodium Potassium Chloride Carbon Dioxide BUN Creatinine Glucose POC Glucose 232 H 276 H 242 H Lactic Acid Calcium AST Alkaline Phosphatase CK-MB (CK-2) CK-MB (CK-2) Rel Index Albumin TSH Urine WBC (Auto) Salicylates 03/25/17 03/25/17 03/26/17 14:30 23:14 13:53 WBC RBC Hgb Hct MCV MCH RDW Plt Count Lymph % (Auto) Maury % (Auto) Eos % (Auto) Seg Neutrophils % Seg Neuts % (Manual) Lymphocytes % (Manual) Seg Neutrophils # Seg Neutrophils # Man Lymphocytes # (Manual) APTT POC ABG pH ABG pH POC ABG pCO2 POC ABG pO2 ABG pO2 ABG HCO3 ABG Base Excess ABG Hemoglobin VBG pH Oxyhemoglobin Sodium Potassium Chloride Carbon Dioxide BUN Creatinine Glucose POC Glucose 246 H 208 H 195 H Lactic Acid Calcium AST Alkaline Phosphatase CK-MB (CK-2) CK-MB (CK-2) Rel Index Albumin TSH Urine WBC (Auto) Salicylates Chest x-ray: report reviewed, image reviewed
[2017-03-27] MEDS: SYNTHROID PO SCH (05:16)
[2017-03-27] MEDS: HumuLIN R SUB-Q SCH ×3 (05:21→22:40)
--- NOTE | 2017-03-27 10:36 | Progress Note ---
Assessment and Plan Hypoglycemic brain injury Persistent vegetative state Metabolic encephalopathy Hypoglycemia/hypothermia, resolved Acute respiratory failure mechanical ventilator greater than 96 hours UTI with klebsiella, treated ( Cx + on 01/28), then with ESBL likely colonization hyponatremia, Hypothyroidism IDDM Hypertension low grade Fever, resolved - Cont supportive care and current medication. Monitor vitals, repeat cx on - no growth - increased dose of long acting insulin to 15 unit - Patient is DNR- needs guardianship from the state to give consent for further management, as has no family to give consent. Brief History: 51 YO Male with CKD,HTN, DM presents to ED after found down and unresponsive by his neighbor, who subsequently called EMS. Upon arrival, patient found unresponsive on the floor with a serum glucose of 21, patient has a known history of alcohol abuse and delirium tremens. The patient was administered D5 approximate 500 mls during transport without change in mental status/level of consciousness. Pt seen and evaluated in ED was was found to be unable to protect his airway. Pt intubated and placed on vent support. Pt found to have evidence of hypothyroidism. He was started on Synthroid. He has since been in the ICU. therapeutic activities services worker try to locate family, even spoke to the family who he lives with. They themselves were unaware of any family members. After ethics committee meeting on the patient. The decision was made to make him DO NOT RESUSCITATE and to transfer him to hospice. Given his very poor prognosis and poor likelihood of recovery. It was decided that was not his best interest to get trach and PEG. Therefore he'll be transferred to the hospice intubated. Now Awaiting on court ordered /state guardianship. Hospitalist Physical - Physical exam Narrative exam: General: comatose HEENT: Moist mucous membranes, , no lymphadenopathy Neck: supple Cardiac: S1-S2 heard Lungs: mechnical ventilated breath sounds Abdomen: soft , nontender, nondistended, bowel sounds positive Extremities: no edema clubbing or cyanosis Skin: no rash or lesions Neurologic: opens eyes, no response to deep painful stimuli, does not follow commend Subjective Date of service: 03/27/17 Principal diagnosis: Acute respiratory failure,encephalopathy Interval history: patient remains comatose, no movement of extremities afebrile o/n, no clinical change Objective - Constitutional Vitals: Vital Signs - 12hr 03/26/17 03/27/17 03/27/17 23:13 00:00 02:01 Temperature Pulse Rate 76 77 77 Pulse Rate [ From Monitor] Respiratory 15 18 14 Rate Blood Pressure 132/82 125/84 125/84 O2 Sat by Pulse 99 100 99 Oximetry 03/27/17 03/27/17 03/27/17 04:00 04:01 05:03 Temperature 97.8 F Pulse Rate 76 77 Pulse Rate [ From Monitor] Respiratory 15 Rate Blood Pressure 125/84 125/84 O2 Sat by Pulse 98 99 Oximetry 03/27/17 03/27/17 03/27/17 06:01 08:00 08:17 Temperature 99.6 F Pulse Rate 76 73 Pulse Rate [ 75 From Monitor] Respiratory 14 13 Rate Blood Pressure 125/84 111/75 O2 Sat by Pulse 99 100 Oximetry 03/27/17 03/27/17 09:50 09:58 Temperature Pulse Rate 74 73 Pulse Rate [ From Monitor] Respiratory 24 Rate Blood Pressure 124/82 124/82 O2 Sat by Pulse 100 100 Oximetry - Labs CBC & Chem 7: 03/17/17 07:43 03/17/17 07:42 Labs: Abnormal lab results 03/26/17 03/26/17 03/27/17 Range/Units 13:53 21:58 05:18 POC Glucose 195 H 241 H 199 H (70-105)
[2017-03-27] MEDS: PEPCID PO SCH ×2 (11:17→21:12)
[2017-03-27] MEDS: HEPARIN SUB-Q SCH ×2 (11:18→21:12)
[2017-03-28] MEDS: SYNTHROID PO SCH (06:02)
[2017-03-28] MEDS: HumuLIN R SUB-Q SCH ×2 (06:03→14:02)
--- NOTE | 2017-03-28 10:23 | Progress Note ---
Assessment and Plan 51 y/o male found down, concern for sepsis and now encephalopathic requiring mechanical ventilation. 1. continue supportive care 2. 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 I am aware that he is an AND but trach will not fix this problem and is not in my professional opinion the right thing to do for this patient. Most likely he will never be weaned from the vent and will remain in a persistent vegatative state. 3. Patient is not on abx therapy and currently does not need this 4. Overall prognosis continues to be poor. 5. Will not check labs 6. Vitals should be qshift 7. This patient's possibility of awakening from this persistent vegatative is unlikely. The current status is that there has been paper work filed to obtain guardianship so that end of life decisions can be made. Supportive care is reasonable but checking daily labs and doing other invasive things to this patient I do not feel is morally and ethically appropriate. Subjective Date of service: 03/28/17 Principal diagnosis: Acute respiratory failure,encephalopathy Interval history: No acute events. Clinically the same Objective Vital Signs - 12hr 03/27/17 03/27/17 03/28/17 23:37 23:58 00:00 Temperature 98.8 F Pulse Rate 67 65 Respiratory 16 14 Rate Blood Pressure 123/76 143/77 O2 Sat by Pulse 100 100 Oximetry 03/28/17 03/28/17 03/28/17 02:00 04:00 06:00 Temperature Pulse Rate 70 73 70 Respiratory 16 20 18 Rate Blood Pressure 143/77 143/77 143/77 O2 Sat by Pulse 100 100 99 Oximetry 03/28/17 03/28/17 03/28/17 08:00 08:42 08:51 Temperature 97.2 F L Pulse Rate 80 78 Respiratory 22 Rate Blood Pressure 135/82 135/82 O2 Sat by Pulse 97 97 Oximetry Constitutional: no acute distress, other (intubated, on vent support) Eyes: non-icteric ENT: oropharynx moist Neck: supple, no JVD Effort: normal Ascultation: Bilateral: clear, diminished breath sounds Cardiovascular: regular rate and rhythm Gastrointestinal: normoactive bowel sounds, soft, non-tender, non-distended Integumentary: normal Extremities: no cyanosis, no edema, pink and warm Neurologic: pupils equal and round, other (minimal responsive,no posturing, otherwise no changes, not following any commands. ) Psychiatric: other (unable to obtain) CBC and BMP: 03/17/17 07:43 03/17/17 07:42 ABG, PT/INR, D-dimer: ABG POC ABG pH 7.442 (7.35-7.45) 01/31/17 18:55 ABG pH 7.420 pH Units (7.350-7.450) 01/17/17 04:35 POC ABG pCO2 32.8 (35-45) L 01/31/17 18:55 ABG pCO2 34.5 mm Hg 01/17/17 04:35 POC ABG pO2 82 (80-105) 01/31/17 18:55 ABG pO2 160.3 mm Hg (80.0-90.0) H 01/17/17 04:35 POC ABG HCO3 22.4 01/31/17 18:55 POC ABG Total CO2 23 01/31/17 18:55 POC ABG O2 Sat 97 01/31/17 18:55 ABG O2 Saturation 99.0 % (95.0-99.0) 01/17/17 04:35 PT/INR, D-dimer PT 14.1 Sec. (12.2-14.9) 01/17/17 04:10 INR 1.04 (0.87-1.13) 01/17/17 04:10 Abnormal lab findings: Abnormal Labs 01/09/17 01/09/17 01/09/17 10:16 10:16 10:16 WBC RBC Hgb 9.7 L Hct 28.4 L MCV 76 L MCH 26 L RDW 17.2 H Plt Count 448 H Lymph % (Auto) [place] % (Auto) Eos % (Auto) Seg Neutrophils % 79.5 H Seg Neuts % (Manual) Lymphocytes % (Manual) Seg Neutrophils # Seg Neutrophils # Man Lymphocytes # (Manual) APTT 39.6 H POC ABG pH ABG pH POC ABG pCO2 POC ABG pO2 ABG pO2 ABG HCO3 ABG Base Excess ABG Hemoglobin VBG pH Oxyhemoglobin Sodium 132 L Potassium Chloride 96.7 L Carbon Dioxide 21 L BUN 34 H Creatinine Glucose POC Glucose Lactic Acid Calcium 8.3 L AST Alkaline Phosphatase 151 H CK-MB (CK-2) 7.1 H CK-MB (CK-2) Rel Index 5.2 H Albumin 3.3 L TSH Urine WBC (Auto) Salicylates 01/09/17 01/09/17 01/09/17 10:16 10:16 10:16 WBC RBC Hgb Hct MCV MCH RDW Plt Count Lymph % (Auto) [place] % (Auto) Eos % (Auto) Seg Neutrophils % Seg Neuts % (Manual) Lymphocytes % (Manual) Seg Neutrophils # Seg Neutrophils # Man Lymphocytes # (Manual) APTT POC ABG pH ABG pH POC ABG pCO2 POC ABG pO2 ABG pO2 ABG HCO3 ABG Base Excess ABG Hemoglobin VBG pH 7.284 L Oxyhemoglobin Sodium Potassium Chloride Carbon Dioxide BUN Creatinine Glucose POC Glucose Lactic Acid Calcium AST Alkaline Phosphatase CK-MB (CK-2) CK-MB (CK-2) Rel Index Albumin TSH 52.800 H Urine WBC (Auto) Salicylates < 0.3 L 01/09/17 01/09/17 01/09/17 10:23 11:14 12:49 WBC RBC Hgb Hct MCV MCH RDW Plt Count Lymph % (Auto) [place] % (Auto) Eos % (Auto) Seg Neutrophils % Seg Neuts % (Manual) Lymphocytes % (Manual) Seg Neutrophils # Seg Neutrophils # Man Lymphocytes # (Manual) APTT POC ABG pH ABG pH POC ABG pCO2 POC ABG pO2 643 H ABG pO2 ABG HCO3 ABG Base Excess ABG Hemoglobin VBG pH Oxyhemoglobin Sodium Potassium Chloride Carbon Dioxide BUN Creatinine Glucose POC Glucose < 40 L Lactic Acid Calcium AST Alkaline Phosphatase CK-MB (CK-2) CK-MB (CK-2) Rel Index Albumin TSH Urine WBC (Auto) 61.0 H Salicylates 01/09/17 01/09/17 01/09/17 13:13 14:21 15:09 WBC RBC Hgb Hct MCV MCH RDW Plt Count Lymph % (Auto) [place] % (Auto) Eos % (Auto) Seg Neutrophils % Seg Neuts % (Manual) Lymphocytes % (Manual) Seg Neutrophils # Seg Neutrophils # Man Lymphocytes # (Manual) APTT POC ABG pH ABG pH POC ABG pCO2 POC ABG pO2 ABG pO2 ABG HCO3 ABG Base Excess ABG Hemoglobin VBG pH Oxyhemoglobin Sodium Potassium Chloride Carbon Dioxide BUN Creatinine Glucose POC Glucose 128 H 65 L 120 H Lactic Acid Calcium AST Alkaline Phosphatase CK-MB (CK-2) CK-MB (CK-2) Rel Index Albumin TSH Urine WBC (Auto) Salicylates 01/09/17 01/09/17 01/10/17 16:28 17:14 04:30 WBC 24.1 H RBC 3.38 L Hgb 8.5 L Hct 26.0 L MCV 77 L MCH 25 L RDW 17.9 H Plt Count 474 H Lymph % (Auto) [place] % (Auto) Eos % (Auto) Seg Neutrophils % Seg Neuts % (Manual) 88.0 H Lymphocytes % (Manual) 4.0 L Seg Neutrophils # Seg Neutrophils # Man 21.2 H Lymphocytes # (Manual) 1.0 L APTT POC ABG pH ABG pH POC ABG pCO2 POC ABG pO2 ABG pO2 ABG HCO3 ABG Base Excess ABG Hemoglobin VBG pH Oxyhemoglobin Sodium Potassium Chloride Carbon Dioxide BUN Creatinine Glucose POC Glucose 44 L 112 H Lactic Acid Calcium AST Alkaline Phosphatase CK-MB (CK-2) CK-MB (CK-2) Rel Index Albumin TSH Urine WBC (Auto) Salicylates 01/10/17 01/10/17 01/10/17 04:30 05:41 05:45 WBC RBC Hgb Hct MCV MCH RDW Plt Count Lymph % (Auto) [place] % (Auto) Eos % (Auto) Seg Neutrophils % Seg Neuts % (Manual) Lymphocytes % (Manual) Seg Neutrophils # Seg Neutrophils # Man Lymphocytes # (Manual) APTT POC ABG pH ABG pH POC ABG pCO2 26.6 L POC ABG pO2 207 H ABG pO2 ABG HCO3 ABG Base Excess ABG Hemoglobin VBG pH Oxyhemoglobin Sodium Potassium Chloride Carbon Dioxide 17 L BUN 27 H Creatinine Glucose POC Glucose 68 L Lactic Acid Calcium 7.5 L AST Alkaline Phosphatase CK-MB (CK-2) CK-MB (CK-2) Rel Index Albumin TSH Urine WBC (Auto) Salicylates 01/10/17 01/10/17 01/10/17 07:47 10:50 13:41 WBC RBC Hgb Hct MCV MCH RDW Plt Count Lymph % (Auto) [place] % (Auto) Eos % (Auto) Seg Neutrophils % Seg Neuts % (Manual) Lymphocytes % (Manual) Seg Neutrophils # Seg Neutrophils # Man Lymphocytes # (Manual) APTT POC ABG pH ABG pH POC ABG pCO2 POC ABG pO2 ABG pO2 ABG HCO3 ABG Base Excess ABG Hemoglobin VBG pH Oxyhemoglobin Sodium Potassium Chloride Carbon Dioxide BUN Creatinine Glucose POC Glucose 148 H 165 H 114 H Lactic Acid Calcium AST Alkaline Phosphatase CK-MB (CK-2) CK-MB (CK-2) Rel Index Albumin TSH Urine WBC (Auto) Salicylates 01/10/17 01/10/17 01/10/17 20:20 21:39 23:24 WBC RBC Hgb Hct MCV MCH RDW Plt Count Lymph % (Auto) [place] % (Auto) Eos % (Auto) Seg Neutrophils % Seg Neuts % (Manual) Lymphocytes % (Manual) Seg Neutrophils # Seg Neutrophils # Man Lymphocytes # (Manual) APTT POC ABG pH ABG pH POC ABG pCO2 POC ABG pO2 ABG pO2 ABG HCO3 ABG Base Excess ABG Hemoglobin VBG pH Oxyhemoglobin Sodium Potassium Chloride Carbon Dioxide BUN Creatinine Glucose POC Glucose 150 H 175 H 155 H Lactic Acid Calcium AST Alkaline Phosphatase CK-MB (CK-2) CK-MB (CK-2) Rel Index Albumin TSH Urine WBC (Auto) Salicylates 01/11/17 01/11/17 01/11/17 00:19 04:06 05:20 WBC 15.2 H RBC 3.40 L Hgb 8.9 L Hct 26.3 L MCV 78 L MCH 26 L RDW 18.6 H Plt Count 462 H Lymph % (Auto) 13.2 L [place] % (Auto) Eos % (Auto) Seg Neutrophils % 80.8 H Seg Neuts % (Manual) Lymphocytes % (Manual) Seg Neutrophils # 12.3 H Seg Neutrophils # Man Lymphocytes # (Manual) APTT POC ABG pH 7.463 H ABG pH POC ABG pCO2 26.2 L POC ABG pO2 185 H ABG pO2 ABG HCO3 ABG Base Excess ABG Hemoglobin VBG pH Oxyhemoglobin Sodium Potassium Chloride Carbon Dioxide BUN Creatinine Glucose POC Glucose 163 H Lactic Acid Calcium AST Alkaline Phosphatase CK-MB (CK-2) CK-MB (CK-2) Rel Index Albumin TSH Urine WBC (Auto) Salicylates 01/11/17 01/11/17 01/11/17 05:20 06:21 07:57 WBC RBC Hgb Hct MCV MCH RDW Plt Count Lymph % (Auto) [place] % (Auto) Eos % (Auto) Seg Neutrophils % Seg Neuts % (Manual) Lymphocytes % (Manual) Seg Neutrophils # Seg Neutrophils # Man Lymphocytes # (Manual) APTT POC ABG pH ABG pH POC ABG pCO2 POC ABG pO2 ABG pO2 ABG HCO3 ABG Base Excess ABG Hemoglobin VBG pH Oxyhemoglobin Sodium Potassium 3.4 L Chloride 111.5 H Carbon Dioxide 17 L BUN Creatinine Glucose 147 H POC Glucose 139 H 188 H Lactic Acid Calcium 8.0 L AST Alkaline Phosphatase CK-MB (CK-2) CK-MB (CK-2) Rel Index Albumin TSH Urine WBC (Auto) Salicylates 01/11/17 01/11/17 01/11/17 11:46 16:50 23:15 WBC RBC Hgb Hct MCV MCH RDW Plt Count Lymph % (Auto) [place] % (Auto) Eos % (Auto) Seg Neutrophils % Seg Neuts % (Manual) Lymphocytes % (Manual) Seg Neutrophils # Seg Neutrophils # Man Lymphocytes # (Manual) APTT POC ABG pH ABG pH POC ABG pCO2 POC ABG pO2 ABG pO2 ABG HCO3 ABG Base Excess ABG Hemoglobin VBG pH Oxyhemoglobin Sodium Potassium Chloride Carbon Dioxide BUN Creatinine Glucose POC Glucose 199 H 235 H 155 H Lactic Acid Calcium AST Alkaline Phosphatase CK-MB (CK-2) CK-MB (CK-2) Rel Index Albumin TSH Urine WBC (Auto) Salicylates 01/12/17 01/12/17 01/12/17 05:02 06:56 14:50 WBC RBC Hgb Hct MCV MCH RDW Plt Count Lymph % (Auto) [place] % (Auto) Eos % (Auto) Seg Neutrophils % Seg Neuts % (Manual) Lymphocytes % (Manual) Seg Neutrophils # Seg Neutrophils # Man Lymphocytes # (Manual) APTT POC ABG pH ABG pH POC ABG pCO2 28.0 L POC ABG pO2 178 H ABG pO2 ABG HCO3 ABG Base Excess ABG Hemoglobin VBG pH Oxyhemoglobin Sodium Potassium Chloride Carbon Dioxide BUN Creatinine Glucose POC Glucose 119 H 164 H Lactic Acid Calcium AST Alkaline Phosphatase CK-MB (CK-2) CK-MB (CK-2) Rel Index Albumin TSH Urine WBC (Auto) Salicylates 01/13/17 01/13/17 01/13/17 03:37 03:37 04:26 WBC RBC 3.61 L Hgb 9.3 L Hct 28.0 L MCV 78 L MCH 26 L RDW 18.2 H Plt Count Lymph % (Auto) [place] % (Auto) Eos % (Auto) Seg Neutrophils % Seg Neuts % (Manual) Lymphocytes % (Manual) Seg Neutrophils # Seg Neutrophils # Man Lymphocytes # (Manual) APTT POC ABG pH 7.485 H ABG pH POC ABG pCO2 25.4 L POC ABG pO2 73 L ABG pO2 ABG HCO3 ABG Base Excess ABG Hemoglobin VBG pH Oxyhemoglobin Sodium Potassium Chloride 112.4 H Carbon Dioxide 19 L BUN Creatinine Glucose 118 H POC Glucose Lactic Acid Calcium 8.0 L AST Alkaline Phosphatase CK-MB (CK-2) CK-MB (CK-2) Rel Index Albumin TSH Urine WBC (Auto) Salicylates 01/13/17 01/13/17 01/13/17 06:15 11:50 17:31 WBC RBC Hgb Hct MCV MCH RDW Plt Count Lymph % (Auto) [place] % (Auto) Eos % (Auto) Seg Neutrophils % Seg Neuts % (Manual) Lymphocytes % (Manual) Seg Neutrophils # Seg Neutrophils # Man Lymphocytes # (Manual) APTT POC ABG pH ABG pH POC ABG pCO2 POC ABG pO2 ABG pO2 ABG HCO3 ABG Base Excess ABG Hemoglobin VBG pH Oxyhemoglobin Sodium Potassium Chloride Carbon Dioxide BUN Creatinine Glucose POC Glucose 116 H 171 H 203 H Lactic Acid Calcium AST Alkaline Phosphatase CK-MB (CK-2) CK-MB (CK-2) Rel Index Albumin TSH Urine WBC (Auto) Salicylates 01/14/17 01/14/17 01/14/17 00:02 04:50 04:50 WBC RBC 3.32 L Hgb 8.5 L Hct 26.1 L MCV 79 L MCH 26 L RDW 18.2 H Plt Count Lymph % (Auto) [place] % (Auto) 9.0 H Eos % (Auto) Seg Neutrophils % Seg Neuts % (Manual) Lymphocytes % (Manual) Seg Neutrophils # Seg Neutrophils # Man Lymphocytes # (Manual) APTT POC ABG pH ABG pH POC ABG pCO2 POC ABG pO2 ABG pO2 ABG HCO3 ABG Base Excess ABG Hemoglobin VBG pH Oxyhemoglobin Sodium Potassium Chloride 112.5 H Carbon Dioxide BUN Creatinine Glucose 149 H POC Glucose 157 H Lactic Acid Calcium 8.1 L AST Alkaline Phosphatase CK-MB (CK-2) CK-MB (CK-2) Rel Index Albumin TSH Urine WBC (Auto) Salicylates 01/14/17 01/14/17 01/14/17 05:10 11:27 14:07 WBC RBC Hgb Hct MCV MCH RDW Plt Count Lymph % (Auto) [place] % (Auto) Eos % (Auto) Seg Neutrophils % Seg Neuts % (Manual) Lymphocytes % (Manual) Seg Neutrophils # Seg Neutrophils # Man Lymphocytes # (Manual) APTT POC ABG pH ABG pH POC ABG pCO2 POC ABG pO2 ABG pO2 ABG HCO3 ABG Base Excess ABG Hemoglobin VBG pH Oxyhemoglobin Sodium Potassium Chloride Carbon Dioxide BUN Creatinine Glucose POC Glucose 176 H 147 H Lactic Acid Calcium AST Alkaline Phosphatase CK-MB (CK-2) CK-MB (CK-2) Rel Index Albumin TSH Urine WBC (Auto) 53.0 H Salicylates 01/14/17 01/15/17 01/15/17 16:52 00:04 05:26 WBC RBC Hgb Hct MCV MCH RDW Plt Count Lymph % (Auto) [place] % (Auto) Eos % (Auto) Seg Neutrophils % Seg Neuts % (Manual) Lymphocytes % (Manual) Seg Neutrophils # Seg Neutrophils # Man Lymphocytes # (Manual) APTT POC ABG pH ABG pH POC ABG pCO2 POC ABG pO2 ABG pO2 ABG HCO3 ABG Base Excess ABG Hemoglobin VBG pH Oxyhemoglobin Sodium Potassium Chloride Carbon Dioxide BUN Creatinine Glucose POC Glucose 131 H 193 H 215 H Lactic Acid Calcium AST Alkaline Phosphatase CK-MB (CK-2) CK-MB (CK-2) Rel Index Albumin TSH Urine WBC (Auto) Salicylates 01/15/17 01/15/17 01/15/17 11:49 17:47 21:33 WBC RBC Hgb Hct MCV MCH RDW Plt Count Lymph % (Auto) [place] % (Auto) Eos % (Auto) Seg Neutrophils % Seg Neuts % (Manual) Lymphocytes % (Manual) Seg Neutrophils # Seg Neutrophils # Man Lymphocytes # (Manual) APTT POC ABG pH ABG pH POC ABG pCO2 POC ABG pO2 ABG pO2 ABG HCO3 ABG Base Excess ABG Hemoglobin VBG pH Oxyhemoglobin Sodium Potassium Chloride Carbon Dioxide BUN Creatinine Glucose POC Glucose 121 H 211 H 275 H Lactic Acid Calcium AST Alkaline Phosphatase CK-MB (CK-2) CK-MB (CK-2) Rel Index Albumin TSH Urine WBC (Auto) Salicylates 01/16/17 01/16/17 01/16/17 04:30 05:28 13:45 WBC RBC Hgb Hct MCV MCH RDW Plt Count Lymph % (Auto) [place] % (Auto) Eos % (Auto) Seg Neutrophils % Seg Neuts % (Manual) Lymphocytes % (Manual) Seg Neutrophils # Seg Neutrophils # Man Lymphocytes # (Manual) APTT POC ABG pH ABG pH 7.457 H POC ABG pCO2 POC ABG pO2 ABG pO2 55.1 L ABG HCO3 19.4 L ABG Base Excess -4.0 L ABG Hemoglobin 6.8 L VBG pH Oxyhemoglobin 94.9 L Sodium Potassium Chloride Carbon Dioxide BUN Creatinine Glucose POC Glucose 271 H 236 H Lactic Acid Calcium AST Alkaline Phosphatase CK-MB (CK-2) CK-MB (CK-2) Rel Index Albumin TSH Urine WBC (Auto) Salicylates 01/16/17 01/17/17 01/17/17 21:39 04:10 04:10 WBC 4.4 L RBC 2.98 L Hgb 7.7 L Hct 23.3 L MCV 78 L MCH 26 L RDW 18.1 H Plt Count Lymph % (Auto) [place] % (Auto) Eos % (Auto) Seg Neutrophils % Seg Neuts % (Manual) Lymphocytes % (Manual) Seg Neutrophils # Seg Neutrophils # Man Lymphocytes # (Manual) APTT POC ABG pH ABG pH POC ABG pCO2 POC ABG pO2 ABG pO2 ABG HCO3 ABG Base Excess ABG Hemoglobin VBG pH Oxyhemoglobin Sodium Potassium 3.3 L Chloride 108.7 H Carbon Dioxide 20 L BUN 8 L Creatinine Glucose 202 H POC Glucose 258 H Lactic Acid Calcium 7.6 L AST Alkaline Phosphatase CK-MB (CK-2) CK-MB (CK-2) Rel Index Albumin TSH Urine WBC (Auto) Salicylates 01/17/17 01/17/17 01/17/17 04:35 12:23 16:01 WBC RBC Hgb Hct MCV MCH RDW Plt Count Lymph % (Auto) [place] % (Auto) Eos % (Auto) Seg Neutrophils % Seg Neuts % (Manual) Lymphocytes % (Manual) Seg Neutrophils # Seg Neutrophils # Man Lymphocytes # (Manual) APTT POC ABG pH ABG pH POC ABG pCO2 POC ABG pO2 ABG pO2 160.3 H ABG HCO3 ABG Base Excess -2.3 L ABG Hemoglobin 7.9 L VBG pH Oxyhemoglobin Sodium Potassium Chloride Carbon Dioxide BUN Creatinine Glucose POC Glucose 321 H 239 H Lactic Acid Calcium AST Alkaline Phosphatase CK-MB (CK-2) CK-MB (CK-2) Rel Index Albumin TSH Urine WBC (Auto) Salicylates 01/18/17 01/18/17 01/18/17 05:07 12:09 17:54 WBC RBC Hgb Hct MCV MCH RDW Plt Count Lymph % (Auto) [place] % (Auto) Eos % (Auto) Seg Neutrophils % Seg Neuts % (Manual) Lymphocytes % (Manual) Seg Neutrophils # Seg Neutrophils # Man Lymphocytes # (Manual) APTT POC ABG pH ABG pH POC ABG pCO2 POC ABG pO2 ABG pO2 ABG HCO3 ABG Base Excess ABG Hemoglobin VBG pH Oxyhemoglobin Sodium Potassium Chloride Carbon Dioxide BUN Creatinine Glucose POC Glucose 155 H 203 H 132 H Lactic Acid Calcium AST Alkaline Phosphatase CK-MB (CK-2) CK-MB (CK-2) Rel Index Albumin TSH Urine WBC (Auto) Salicylates 01/18/17 01/19/17 01/19/17 23:43 04:28 12:11 WBC RBC Hgb Hct MCV MCH RDW Plt Count Lymph % (Auto) [place] % (Auto) Eos % (Auto) Seg Neutrophils % Seg Neuts % (Manual) Lymphocytes % (Manual) Seg Neutrophils # Seg Neutrophils # Man Lymphocytes # (Manual) APTT POC ABG pH ABG pH POC ABG pCO2 POC ABG pO2 ABG pO2 ABG HCO3 ABG Base Excess ABG Hemoglobin VBG pH Oxyhemoglobin Sodium Potassium Chloride Carbon Dioxide BUN Creatinine Glucose POC Glucose 125 H 182 H 153 H Lactic Acid Calcium AST Alkaline Phosphatase CK-MB (CK-2) CK-MB (CK-2) Rel Index Albumin TSH Urine WBC (Auto) Salicylates 01/19/17 01/20/17 01/20/17 17:23 00:12 05:44 WBC RBC Hgb Hct MCV MCH RDW Plt Count Lymph % (Auto) [place] % (Auto) Eos % (Auto) Seg Neutrophils % Seg Neuts % (Manual) Lymphocytes % (Manual) Seg Neutrophils # Seg Neutrophils # Man Lymphocytes # (Manual) APTT POC ABG pH ABG pH POC ABG pCO2 POC ABG pO2 ABG pO2 ABG HCO3 ABG Base Excess ABG Hemoglobin VBG pH Oxyhemoglobin Sodium Potassium Chloride Carbon Dioxide BUN Creatinine Glucose POC Glucose 66 L 139 H 176 H Lactic Acid Calcium AST Alkaline Phosphatase CK-MB (CK-2) CK-MB (CK-2) Rel Index Albumin TSH Urine WBC (Auto) Salicylates 01/20/17 01/20/17 01/20/17 11:48 17:42 23:43 WBC RBC Hgb Hct MCV MCH RDW Plt Count Lymph % (Auto) [place] % (Auto) Eos % (Auto) Seg Neutrophils % Seg Neuts % (Manual) Lymphocytes % (Manual) Seg Neutrophils # Seg Neutrophils # Man Lymphocytes # (Manual) APTT POC ABG pH ABG pH POC ABG pCO2 POC ABG pO2 ABG pO2 ABG HCO3 ABG Base Excess ABG Hemoglobin VBG pH Oxyhemoglobin Sodium Potassium Chloride Carbon Dioxide BUN Creatinine Glucose POC Glucose 218 H 132 H 178 H Lactic Acid Calcium AST Alkaline Phosphatase CK-MB (CK-2) CK-MB (CK-2) Rel Index Albumin TSH Urine WBC (Auto) Salicylates 01/21/17 01/21/17 01/21/17 05:34 11:17 23:37 WBC RBC Hgb Hct MCV MCH RDW Plt Count Lymph % (Auto) [place] % (Auto) Eos % (Auto) Seg Neutrophils % Seg Neuts % (Manual) Lymphocytes % (Manual) Seg Neutrophils # Seg Neutrophils # Man Lymphocytes # (Manual) APTT POC ABG pH ABG pH POC ABG pCO2 POC ABG pO2 ABG pO2 ABG HCO3 ABG Base Excess ABG Hemoglobin VBG pH Oxyhemoglobin Sodium Potassium Chloride Carbon Dioxide BUN Creatinine Glucose POC Glucose 106 H 213 H 140 H Lactic Acid Calcium AST Alkaline Phosphatase CK-MB (CK-2) CK-MB (CK-2) Rel Index Albumin TSH Urine WBC (Auto) Salicylates 01/22/17 01/22/17 01/22/17 04:00 04:00 04:58 WBC RBC 3.26 L Hgb 8.3 L Hct 25.5 L MCV 78 L MCH 25 L RDW 17.9 H Plt Count Lymph % (Auto) [place] % (Auto) 7.9 H Eos % (Auto) 6.2 H Seg Neutrophils % Seg Neuts % (Manual) Lymphocytes % (Manual) Seg Neutrophils # Seg Neutrophils # Man Lymphocytes # (Manual) APTT POC ABG pH ABG pH POC ABG pCO2 POC ABG pO2 ABG pO2 ABG HCO3 ABG Base Excess ABG Hemoglobin VBG pH Oxyhemoglobin Sodium Potassium Chloride 95.5 L Carbon Dioxide 31 H D BUN Creatinine Glucose 134 H POC Glucose 146 H Lactic Acid Calcium AST 44 H Alkaline Phosphatase 379 H CK-MB (CK-2) CK-MB (CK-2) Rel Index Albumin 2.7 L TSH Urine WBC (Auto) Salicylates 01/22/17 01/22/17 01/22/17 12:12 18:12 23:39 WBC RBC Hgb Hct MCV MCH RDW Plt Count Lymph % (Auto) [place] % (Auto) Eos % (Auto) Seg Neutrophils % Seg Neuts % (Manual) Lymphocytes % (Manual) Seg Neutrophils # Seg Neutrophils # Man Lymphocytes # (Manual) APTT POC ABG pH ABG pH POC ABG pCO2 POC ABG pO2 ABG pO2 ABG HCO3 ABG Base Excess ABG Hemoglobin VBG pH Oxyhemoglobin Sodium Potassium Chloride Carbon Dioxide BUN Creatinine Glucose POC Glucose 255 H 182 H 134 H Lactic Acid Calcium AST Alkaline Phosphatase CK-MB (CK-2) CK-MB (CK-2) Rel Index Albumin TSH Urine WBC (Auto) Salicylates 01/23/17 01/23/17 01/23/17 04:43 12:12 17:36 WBC RBC Hgb Hct MCV MCH RDW Plt Count Lymph % (Auto) [place] % (Auto) Eos % (Auto) Seg Neutrophils % Seg Neuts % (Manual) Lymphocytes % (Manual) Seg Neutrophils # Seg Neutrophils # Man Lymphocytes # (Manual) APTT POC ABG pH ABG pH POC ABG pCO2 POC ABG pO2 ABG pO2 ABG HCO3 ABG Base Excess ABG Hemoglobin VBG pH Oxyhemoglobin Sodium Potassium Chloride Carbon Dioxide BUN Creatinine Glucose POC Glucose 218 H 128 H 156 H Lactic Acid Calcium AST Alkaline Phosphatase CK-MB (CK-2) CK-MB (CK-2) Rel Index Albumin TSH Urine WBC (Auto) Salicylates 01/24/17 01/24/17 01/24/17 00:08 05:16 11:40 WBC RBC Hgb Hct MCV MCH RDW Plt Count Lymph % (Auto) [place] % (Auto) Eos % (Auto) Seg Neutrophils % Seg Neuts % (Manual) Lymphocytes % (Manual) Seg Neutrophils # Seg Neutrophils # Man Lymphocytes # (Manual) APTT POC ABG pH ABG pH POC ABG pCO2 POC ABG pO2 ABG pO2 ABG HCO3 ABG Base Excess ABG Hemoglobin VBG pH Oxyhemoglobin Sodium Potassium Chloride Carbon Dioxide BUN Creatinine Glucose POC Glucose 129 H 169 H 187 H Lactic Acid Calcium AST Alkaline Phosphatase CK-MB (CK-2) CK-MB (CK-2) Rel Index Albumin TSH Urine WBC (Auto) Salicylates 01/24/17 01/24/17 01/25/17 17:43 23:23 04:56 WBC RBC Hgb Hct MCV MCH RDW Plt Count Lymph % (Auto) [place] % (Auto) Eos % (Auto) Seg Neutrophils % Seg Neuts % (Manual) Lymphocytes % (Manual) Seg Neutrophils # Seg Neutrophils # Man Lymphocytes # (Manual) APTT POC ABG pH ABG pH POC ABG pCO2 POC ABG pO2 ABG pO2 ABG HCO3 ABG Base Excess ABG Hemoglobin VBG pH Oxyhemoglobin Sodium Potassium Chloride Carbon Dioxide BUN Creatinine Glucose POC Glucose 215 H 222 H 210 H Lactic Acid Calcium AST Alkaline Phosphatase CK-MB (CK-2) CK-MB (CK-2) Rel Index Albumin TSH Urine WBC (Auto) Salicylates 01/25/17 01/25/17 01/26/17 11:52 17:37 00:02 WBC RBC Hgb Hct MCV MCH RDW Plt Count Lymph % (Auto) [place] % (Auto) Eos % (Auto) Seg Neutrophils % Seg Neuts % (Manual) Lymphocytes % (Manual) Seg Neutrophils # Seg Neutrophils # Man Lymphocytes # (Manual) APTT POC ABG pH ABG pH POC ABG pCO2 POC ABG pO2 ABG pO2 ABG HCO3 ABG Base Excess ABG Hemoglobin VBG pH Oxyhemoglobin Sodium Potassium Chloride Carbon Dioxide BUN Creatinine Glucose POC Glucose 284 H 218 H 192 H Lactic Acid Calcium AST Alkaline Phosphatase CK-MB (CK-2) CK-MB (CK-2) Rel Index Albumin TSH Urine WBC (Auto) Salicylates 01/26/17 01/26/17 01/26/17 05:33 12:17 17:50 WBC RBC Hgb Hct MCV MCH RDW Plt Count Lymph % (Auto) [place] % (Auto) Eos % (Auto) Seg Neutrophils % Seg Neuts % (Manual) Lymphocytes % (Manual) Seg Neutrophils # Seg Neutrophils # Man Lymphocytes # (Manual) APTT POC ABG pH ABG pH POC ABG pCO2 POC ABG pO2 ABG pO2 ABG HCO3 ABG Base Excess ABG Hemoglobin VBG pH Oxyhemoglobin Sodium Potassium Chloride Carbon Dioxide BUN Creatinine Glucose POC Glucose 199 H 227 H 229 H Lactic Acid Calcium AST Alkaline Phosphatase CK-MB (CK-2) CK-MB (CK-2) Rel Index Albumin TSH Urine WBC (Auto) Salicylates 01/26/17 01/27/17 01/27/17 23:57 05:31 11:42 WBC RBC Hgb Hct MCV MCH RDW Plt Count Lymph % (Auto) [place] % (Auto) Eos % (Auto) Seg Neutrophils % Seg Neuts % (Manual) Lymphocytes % (Manual) Seg Neutrophils # Seg Neutrophils # Man Lymphocytes # (Manual) APTT POC ABG pH ABG pH POC ABG pCO2 POC ABG pO2 ABG pO2 ABG HCO3 ABG Base Excess ABG Hemoglobin VBG pH Oxyhemoglobin Sodium Potassium Chloride Carbon Dioxide BUN Creatinine Glucose POC Glucose 186 H 285 H 260 H Lactic Acid Calcium AST Alkaline Phosphatase CK-MB (CK-2) CK-MB (CK-2) Rel Index Albumin TSH Urine WBC (Auto) Salicylates 01/27/17 01/27/17 01/27/17 17:47 23:58 Unknown WBC 12.1 H RBC 3.28 L Hgb 8.5 L Hct 25.5 L MCV 78 L MCH 26 L RDW 16.8 H Plt Count 601 H Lymph % (Auto) [place] % (Auto) Eos % (Auto) Seg Neutrophils % Seg Neuts % (Manual) Lymphocytes % (Manual) Seg Neutrophils # Seg Neutrophils # Man Lymphocytes # (Manual) APTT POC ABG pH ABG pH POC ABG pCO2 POC ABG pO2 ABG pO2 ABG HCO3 ABG Base Excess ABG Hemoglobin VBG pH Oxyhemoglobin Sodium Potassium Chloride Carbon Dioxide BUN Creatinine Glucose POC Glucose 329 H 225 H Lactic Acid Calcium AST Alkaline Phosphatase CK-MB (CK-2) CK-MB (CK-2) Rel Index Albumin TSH Urine WBC (Auto) Salicylates 01/27/17 01/28/17 01/28/17 Unknown 03:44 03:44 WBC RBC 3.14 L Hgb 8.2 L Hct 24.1 L MCV 77 L MCH 26 L RDW 16.9 H Plt Count 567 H Lymph % (Auto) [place] % (Auto) Eos % (Auto) Seg Neutrophils % Seg Neuts % (Manual) Lymphocytes % (Manual) Seg Neutrophils # Seg Neutrophils # Man Lymphocytes # (Manual) APTT POC ABG pH ABG pH POC ABG pCO2 POC ABG pO2 ABG pO2 ABG HCO3 ABG Base Excess ABG Hemoglobin VBG pH Oxyhemoglobin Sodium 128 L Potassium 5.4 H Chloride 87.5 L Carbon Dioxide BUN 44 H 42 H Creatinine Glucose 250 H 128 H POC Glucose Lactic Acid Calcium AST Alkaline Phosphatase CK-MB (CK-2) CK-MB (CK-2) Rel Index Albumin TSH Urine WBC (Auto) Salicylates 01/28/17 01/28/17 01/28/17 11:43 16:47 17:52 WBC RBC Hgb Hct MCV MCH RDW Plt Count Lymph % (Auto) [place] % (Auto) Eos % (Auto) Seg Neutrophils % Seg Neuts % (Manual) Lymphocytes % (Manual) Seg Neutrophils # Seg Neutrophils # Man Lymphocytes # (Manual) APTT POC ABG pH ABG pH POC ABG pCO2 POC ABG pO2 ABG pO2 ABG HCO3 ABG Base Excess ABG Hemoglobin VBG pH Oxyhemoglobin Sodium Potassium Chloride Carbon Dioxide BUN Creatinine Glucose POC Glucose 351 H 249 H Lactic Acid Calcium AST Alkaline Phosphatase CK-MB (CK-2) CK-MB (CK-2) Rel Index Albumin TSH Urine WBC (Auto) > 182.0 H Salicylates 01/29/17 01/29/17 01/29/17 05:25 05:25 09:32 WBC 13.6 H RBC 3.25 L Hgb 8.3 L Hct 25.1 L MCV 77 L MCH 26 L RDW 16.8 H Plt Count 514 H Lymph % (Auto) [place] % (Auto) Eos % (Auto) Seg Neutrophils % Seg Neuts % (Manual) Lymphocytes % (Manual) Seg Neutrophils # Seg Neutrophils # Man Lymphocytes # (Manual) APTT POC ABG pH ABG pH POC ABG pCO2 POC ABG pO2 ABG pO2 ABG HCO3 ABG Base Excess ABG Hemoglobin VBG pH Oxyhemoglobin Sodium Potassium Chloride 97.8 L Carbon Dioxide BUN 34 H Creatinine Glucose 222 H POC Glucose Lactic Acid 2.50 H* Calcium AST Alkaline Phosphatase CK-MB (CK-2) CK-MB (CK-2) Rel Index Albumin TSH Urine WBC (Auto) Salicylates 01/29/17 01/29/17 01/29/17 11:56 18:11 23:55 WBC RBC Hgb Hct MCV MCH RDW Plt Count Lymph % (Auto) [place] % (Auto) Eos % (Auto) Seg Neutrophils % Seg Neuts % (Manual) Lymphocytes % (Manual) Seg Neutrophils # Seg Neutrophils # Man Lymphocytes # (Manual) APTT POC ABG pH ABG pH POC ABG pCO2 POC ABG pO2 ABG pO2 ABG HCO3 ABG Base Excess ABG Hemoglobin VBG pH Oxyhemoglobin Sodium Potassium Chloride Carbon Dioxide BUN Creatinine Glucose POC Glucose 261 H 215 H 176 H Lactic Acid Calcium AST Alkaline Phosphatase CK-MB (CK-2) CK-MB (CK-2) Rel Index Albumin TSH Urine WBC (Auto) Salicylates 01/30/17 01/30/17 01/30/17 05:31 05:31 05:34 WBC 15.2 H RBC 3.09 L Hgb 7.9 L Hct 23.9 L MCV 77 L MCH 26 L RDW 16.9 H Plt Count 569 H Lymph % (Auto) [place] % (Auto) Eos % (Auto) Seg Neutrophils % Seg Neuts % (Manual) Lymphocytes % (Manual) Seg Neutrophils # Seg Neutrophils # Man Lymphocytes # (Manual) APTT POC ABG pH ABG pH POC ABG pCO2 POC ABG pO2 ABG pO2 ABG HCO3 ABG Base Excess ABG Hemoglobin VBG pH Oxyhemoglobin Sodium Potassium Chloride Carbon Dioxide BUN 24 H Creatinine Glucose 235 H POC Glucose 243 H Lactic Acid Calcium AST Alkaline Phosphatase CK-MB (CK-2) CK-MB (CK-2) Rel Index Albumin TSH Urine WBC (Auto) Salicylates 01/30/17 01/30/17 01/30/17 11:38 17:58 23:29 WBC RBC Hgb Hct MCV MCH RDW Plt Count Lymph % (Auto) [place] % (Auto) Eos % (Auto) Seg Neutrophils % Seg Neuts % (Manual) Lymphocytes % (Manual) Seg Neutrophils # Seg Neutrophils # Man Lymphocytes # (Manual) APTT POC ABG pH ABG pH POC ABG pCO2 POC ABG pO2 ABG pO2 ABG HCO3 ABG Base Excess ABG Hemoglobin VBG pH Oxyhemoglobin Sodium Potassium Chloride Carbon Dioxide BUN Creatinine Glucose POC Glucose 298 H 208 H 245 H Lactic Acid Calcium AST Alkaline Phosphatase CK-MB (CK-2) CK-MB (CK-2) Rel Index Albumin TSH Urine WBC (Auto) Salicylates 01/31/17 01/31/17 01/31/17 04:39 04:39 05:57 WBC 11.4 H RBC 3.22 L Hgb 8.2 L Hct 24.9 L MCV 78 L MCH 25 L RDW 17.2 H Plt Count 576 H Lymph % (Auto) [place] % (Auto) Eos % (Auto) Seg Neutrophils % Seg Neuts % (Manual) Lymphocytes % (Manual) Seg Neutrophils # Seg Neutrophils # Man Lymphocytes # (Manual) APTT POC ABG pH ABG pH POC ABG pCO2 POC ABG pO2 ABG pO2 ABG HCO3 ABG Base Excess ABG Hemoglobin VBG pH Oxyhemoglobin Sodium Potassium Chloride Carbon Dioxide BUN Creatinine 0.7 L Glucose 223 H POC Glucose 264 H Lactic Acid Calcium AST Alkaline Phosphatase CK-MB (CK-2) CK-MB (CK-2) Rel Index Albumin TSH Urine WBC (Auto) Salicylates 01/31/17 01/31/17 01/31/17 12:23 17:41 18:55 WBC RBC Hgb Hct MCV MCH RDW Plt Count Lymph % (Auto) [place] % (Auto) Eos % (Auto) Seg Neutrophils % Seg Neuts % (Manual) Lymphocytes % (Manual) Seg Neutrophils # Seg Neutrophils # Man Lymphocytes # (Manual) APTT POC ABG pH ABG pH POC ABG pCO2 32.8 L POC ABG pO2 ABG pO2 ABG HCO3 ABG Base Excess ABG Hemoglobin VBG pH Oxyhemoglobin Sodium Potassium Chloride Carbon Dioxide BUN Creatinine Glucose POC Glucose 252 H 208 H Lactic Acid Calcium AST Alkaline Phosphatase CK-MB (CK-2) CK-MB (CK-2) Rel Index Albumin TSH Urine WBC (Auto) Salicylates 01/31/17 02/01/17 02/01/17 22:59 03:38 03:38 WBC RBC 2.81 L Hgb 7.4 L Hct 22.1 L MCV 79 L MCH 27 L RDW 17.0 H Plt Count 540 H Lymph % (Auto) [place] % (Auto) Eos % (Auto) Seg Neutrophils % Seg Neuts % (Manual) Lymphocytes % (Manual) Seg Neutrophils # Seg Neutrophils # Man Lymphocytes # (Manual) APTT POC ABG pH ABG pH POC ABG pCO2 POC ABG pO2 ABG pO2 ABG HCO3 ABG Base Excess ABG Hemoglobin VBG pH Oxyhemoglobin Sodium Potassium Chloride Carbon Dioxide 21 L BUN Creatinine 0.7 L Glucose POC Glucose 40 L Lactic Acid Calcium AST Alkaline Phosphatase CK-MB (CK-2) CK-MB (CK-2) Rel Index Albumin TSH Urine WBC (Auto) Salicylates 02/01/17 02/01/17 02/01/17 05:17 12:19 16:44 WBC RBC Hgb Hct MCV MCH RDW Plt Count Lymph % (Auto) [place] % (Auto) Eos % (Auto) Seg Neutrophils % Seg Neuts % (Manual) Lymphocytes % (Manual) Seg Neutrophils # Seg Neutrophils # Man Lymphocytes # (Manual) APTT POC ABG pH ABG pH POC ABG pCO2 POC ABG pO2 ABG pO2 ABG HCO3 ABG Base Excess ABG Hemoglobin VBG pH Oxyhemoglobin Sodium Potassium Chloride Carbon Dioxide BUN Creatinine Glucose POC Glucose 140 H 213 H 172 H Lactic Acid Calcium AST Alkaline Phosphatase CK-MB (CK-2) CK-MB (CK-2) Rel Index Albumin TSH Urine WBC (Auto) Salicylates 02/01/17 02/02/17 02/02/17 23:59 05:14 11:24 WBC RBC Hgb Hct MCV MCH RDW Plt Count Lymph % (Auto) [place] % (Auto) Eos % (Auto) Seg Neutrophils % Seg Neuts % (Manual) Lymphocytes % (Manual) Seg Neutrophils # Seg Neutrophils # Man Lymphocytes # (Manual) APTT POC ABG pH ABG pH POC ABG pCO2 POC ABG pO2 ABG pO2 ABG HCO3 ABG Base Excess ABG Hemoglobin VBG pH Oxyhemoglobin Sodium Potassium Chloride Carbon Dioxide BUN Creatinine Glucose POC Glucose 181 H 194 H 209 H Lactic Acid Calcium AST Alkaline Phosphatase CK-MB (CK-2) CK-MB (CK-2) Rel Index Albumin TSH Urine WBC (Auto) Salicylates 02/02/17 02/02/17 02/02/17 11:46 11:46 17:47 WBC RBC 2.94 L Hgb 7.5 L Hct 23.0 L MCV 78 L MCH 25 L RDW 16.9 H Plt Count 520 H Lymph % (Auto) [place] % (Auto) Eos % (Auto) Seg Neutrophils % Seg Neuts % (Manual) Lymphocytes % (Manual) Seg Neutrophils # Seg Neutrophils # Man Lymphocytes # (Manual) APTT POC ABG pH ABG pH POC ABG pCO2 POC ABG pO2 ABG pO2 ABG HCO3 ABG Base Excess ABG Hemoglobin VBG pH Oxyhemoglobin Sodium Potassium Chloride Carbon Dioxide BUN Creatinine 0.6 L Glucose 189 H POC Glucose 147 H Lactic Acid Calcium 8.1 L AST Alkaline Phosphatase CK-MB (CK-2) CK-MB (CK-2) Rel Index Albumin TSH Urine WBC (Auto) Salicylates 02/02/17 02/03/17 02/03/17 23:32 05:53 11:19 WBC RBC Hgb Hct MCV MCH RDW Plt Count Lymph % (Auto) [place] % (Auto) Eos % (Auto) Seg Neutrophils % Seg Neuts % (Manual) Lymphocytes % (Manual) Seg Neutrophils # Seg Neutrophils # Man Lymphocytes # (Manual) APTT POC ABG pH ABG pH POC ABG pCO2 POC ABG pO2 ABG pO2 ABG HCO3 ABG Base Excess ABG Hemoglobin VBG pH Oxyhemoglobin Sodium Potassium Chloride Carbon Dioxide BUN Creatinine Glucose POC Glucose 176 H 224 H 228 H Lactic Acid Calcium AST Alkaline Phosphatase CK-MB (CK-2) CK-MB (CK-2) Rel Index Albumin TSH Urine WBC (Auto) Salicylates 02/03/17 02/03/17 02/04/17 16:59 23:38 05:45 WBC RBC Hgb Hct MCV MCH RDW Plt Count Lymph % (Auto) [place] % (Auto) Eos % (Auto) Seg Neutrophils % Seg Neuts % (Manual) Lymphocytes % (Manual) Seg Neutrophils # Seg Neutrophils # Man Lymphocytes # (Manual) APTT POC ABG pH ABG pH POC ABG pCO2 POC ABG pO2 ABG pO2 ABG HCO3 ABG Base Excess ABG Hemoglobin VBG pH Oxyhemoglobin Sodium Potassium Chloride Carbon Dioxide BUN Creatinine Glucose POC Glucose 189 H 191 H 251 H Lactic Acid Calcium AST Alkaline Phosphatase CK-MB (CK-2) CK-MB (CK-2) Rel Index Albumin TSH Urine WBC (Auto) Salicylates 02/04/17 02/04/17 02/05/17 11:20 17:20 00:17 WBC RBC Hgb Hct MCV MCH RDW Plt Count Lymph % (Auto) [place] % (Auto) Eos % (Auto) Seg Neutrophils % Seg Neuts % (Manual) Lymphocytes % (Manual) Seg Neutrophils # Seg Neutrophils # Man Lymphocytes # (Manual) APTT POC ABG pH ABG pH POC ABG pCO2 POC ABG pO2 ABG pO2 ABG HCO3 ABG Base Excess ABG Hemoglobin VBG pH Oxyhemoglobin Sodium Potassium Chloride Carbon Dioxide BUN Creatinine Glucose POC Glucose 243 H 163 H 200 H Lactic Acid Calcium AST Alkaline Phosphatase CK-MB (CK-2) CK-MB (CK-2) Rel Index Albumin TSH Urine WBC (Auto) Salicylates 02/05/17 02/05/17 02/05/17 05:38 12:38 16:29 WBC RBC Hgb Hct MCV MCH RDW Plt Count Lymph % (Auto) [place] % (Auto) Eos % (Auto) Seg Neutrophils % Seg Neuts % (Manual) Lymphocytes % (Manual) Seg Neutrophils # Seg Neutrophils # Man Lymphocytes # (Manual) APTT POC ABG pH ABG pH POC ABG pCO2 POC ABG pO2 ABG pO2 ABG HCO3 ABG Base Excess ABG Hemoglobin VBG pH Oxyhemoglobin Sodium Potassium Chloride Carbon Dioxide BUN Creatinine Glucose POC Glucose 248 H 241 H 257 H Lactic Acid Calcium AST Alkaline Phosphatase CK-MB (CK-2) CK-MB (CK-2) Rel Index Albumin TSH Urine WBC (Auto) Salicylates 02/05/17 02/06/17 02/06/17 23:56 05:30 11:50 WBC RBC Hgb Hct MCV MCH RDW Plt Count Lymph % (Auto) [place] % (Auto) Eos % (Auto) Seg Neutrophils % Seg Neuts % (Manual) Lymphocytes % (Manual) Seg Neutrophils # Seg Neutrophils # Man Lymphocytes # (Manual) APTT POC ABG pH ABG pH POC ABG pCO2 POC ABG pO2 ABG pO2 ABG HCO3 ABG Base Excess ABG Hemoglobin VBG pH Oxyhemoglobin Sodium Potassium Chloride Carbon Dioxide BUN Creatinine Glucose POC Glucose 258 H 120 H 254 H Lactic Acid Calcium AST Alkaline Phosphatase CK-MB (CK-2) CK-MB (CK-2) Rel Index Albumin TSH Urine WBC (Auto) Salicylates 02/06/17 02/06/17 02/07/17 17:11 23:50 05:22 WBC RBC Hgb Hct MCV MCH RDW Plt Count Lymph % (Auto) [place] % (Auto) Eos % (Auto) Seg Neutrophils % Seg Neuts % (Manual) Lymphocytes % (Manual) Seg Neutrophils # Seg Neutrophils # Man Lymphocytes # (Manual) APTT POC ABG pH ABG pH POC ABG pCO2 POC ABG pO2 ABG pO2 ABG HCO3 ABG Base Excess ABG Hemoglobin VBG pH Oxyhemoglobin Sodium Potassium Chloride Carbon Dioxide BUN Creatinine Glucose POC Glucose 149 H 240 H 258 H Lactic Acid Calcium AST Alkaline Phosphatase CK-MB (CK-2) CK-MB (CK-2) Rel Index Albumin TSH Urine WBC (Auto) Salicylates 02/07/17 02/07/17 02/07/17 11:15 18:33 23:59 WBC RBC Hgb Hct MCV MCH RDW Plt Count Lymph % (Auto) [place] % (Auto) Eos % (Auto) Seg Neutrophils % Seg Neuts % (Manual) Lymphocytes % (Manual) Seg Neutrophils # Seg Neutrophils # Man Lymphocytes # (Manual) APTT POC ABG pH ABG pH POC ABG pCO2 POC ABG pO2 ABG pO2 ABG HCO3 ABG Base Excess ABG Hemoglobin VBG pH Oxyhemoglobin Sodium Potassium Chloride Carbon Dioxide BUN Creatinine Glucose POC Glucose 239 H 176 H 186 H Lactic Acid Calcium AST Alkaline Phosphatase CK-MB (CK-2) CK-MB (CK-2) Rel Index Albumin TSH Urine WBC (Auto) Salicylates 02/08/17 02/08/17 02/08/17 06:15 11:55 16:55 WBC RBC Hgb Hct MCV MCH RDW Plt Count Lymph % (Auto) [place] % (Auto) Eos % (Auto) Seg Neutrophils % Seg Neuts % (Manual) Lymphocytes % (Manual) Seg Neutrophils # Seg Neutrophils # Man Lymphocytes # (Manual) APTT POC ABG pH ABG pH POC ABG pCO2 POC ABG pO2 ABG pO2 ABG HCO3 ABG Base Excess ABG Hemoglobin VBG pH Oxyhemoglobin Sodium Potassium Chloride Carbon Dioxide BUN Creatinine Glucose POC Glucose 195 H 129 H 246 H Lactic Acid Calcium AST Alkaline Phosphatase CK-MB (CK-2) CK-MB (CK-2) Rel Index Albumin TSH Urine WBC (Auto) Salicylates 02/08/17 02/09/17 02/09/17 23:51 05:51 07:24 WBC 14.7 H RBC 3.39 L Hgb 8.9 L Hct 26.4 L MCV 78 L MCH 26 L RDW 18.4 H Plt Count 670 H Lymph % (Auto) 11.8 L [place] % (Auto) Eos % (Auto) Seg Neutrophils % 81.2 H Seg Neuts % (Manual) Lymphocytes % (Manual) Seg Neutrophils # 11.9 H Seg Neutrophils # Man Lymphocytes # (Manual) APTT POC ABG pH ABG pH POC ABG pCO2 POC ABG pO2 ABG pO2 ABG HCO3 ABG Base Excess ABG Hemoglobin VBG pH Oxyhemoglobin Sodium Potassium Chloride Carbon Dioxide BUN Creatinine Glucose POC Glucose 262 H 295 H Lactic Acid Calcium AST Alkaline Phosphatase CK-MB (CK-2) CK-MB (CK-2) Rel Index Albumin TSH Urine WBC (Auto) Salicylates 02/09/17 02/09/17 02/09/17 07:24 12:08 18:39 WBC RBC Hgb Hct MCV MCH RDW Plt Count Lymph % (Auto) [place] % (Auto) Eos % (Auto) Seg Neutrophils % Seg Neuts % (Manual) Lymphocytes % (Manual) Seg Neutrophils # Seg Neutrophils # Man Lymphocytes # (Manual) APTT POC ABG pH ABG pH POC ABG pCO2 POC ABG pO2 ABG pO2 ABG HCO3 ABG Base Excess ABG Hemoglobin VBG pH Oxyhemoglobin Sodium Potassium Chloride 95.5 L Carbon Dioxide BUN 52 H Creatinine Glucose 277 H POC Glucose 236 H 151 H Lactic Acid Calcium AST Alkaline Phosphatase CK-MB (CK-2) CK-MB (CK-2) Rel Index Albumin TSH Urine WBC (Auto) Salicylates 02/10/17 02/10/17 02/10/17 00:01 05:44 11:21 WBC RBC Hgb Hct MCV MCH RDW Plt Count Lymph % (Auto) [place] % (Auto) Eos % (Auto) Seg Neutrophils % Seg Neuts % (Manual) Lymphocytes % (Manual) Seg Neutrophils # Seg Neutrophils # Man Lymphocytes # (Manual) APTT POC ABG pH ABG pH POC ABG pCO2 POC ABG pO2 ABG pO2 ABG HCO3 ABG Base Excess ABG Hemoglobin VBG pH Oxyhemoglobin Sodium Potassium Chloride Carbon Dioxide BUN Creatinine Glucose POC Glucose 210 H 201 H 233 H Lactic Acid Calcium AST Alkaline Phosphatase CK-MB (CK-2) CK-MB (CK-2) Rel Index Albumin TSH Urine WBC (Auto) Salicylates 02/10/17 02/10/17 02/11/17 17:29 23:56 05:24 WBC RBC Hgb Hct MCV MCH RDW Plt Count Lymph % (Auto) [place] % (Auto) Eos % (Auto) Seg Neutrophils % Seg Neuts % (Manual) Lymphocytes % (Manual) Seg Neutrophils # Seg Neutrophils # Man Lymphocytes # (Manual) APTT POC ABG pH ABG pH POC ABG pCO2 POC ABG pO2 ABG pO2 ABG HCO3 ABG Base Excess ABG Hemoglobin VBG pH Oxyhemoglobin Sodium Potassium Chloride Carbon Dioxide BUN Creatinine Glucose POC Glucose 167 H 191 H 135 H Lactic Acid Calcium AST Alkaline Phosphatase CK-MB (CK-2) CK-MB (CK-2) Rel Index Albumin TSH Urine WBC (Auto) Salicylates 02/11/17 02/11/17 02/11/17 12:25 17:03 23:59 WBC RBC Hgb Hct MCV MCH RDW Plt Count Lymph % (Auto) [place] % (Auto) Eos % (Auto) Seg Neutrophils % Seg Neuts % (Manual) Lymphocytes % (Manual) Seg Neutrophils # Seg Neutrophils # Man Lymphocytes # (Manual) APTT POC ABG pH ABG pH POC ABG pCO2 POC ABG pO2 ABG pO2 ABG HCO3 ABG Base Excess ABG Hemoglobin VBG pH Oxyhemoglobin Sodium Potassium Chloride Carbon Dioxide BUN Creatinine Glucose POC Glucose 275 H 172 H 215 H Lactic Acid Calcium AST Alkaline Phosphatase CK-MB (CK-2) CK-MB (CK-2) Rel Index Albumin TSH Urine WBC (Auto) Salicylates 02/12/17 02/12/17 02/12/17 05:39 11:33 17:55 WBC RBC Hgb Hct MCV MCH RDW Plt Count Lymph % (Auto) [place] % (Auto) Eos % (Auto) Seg Neutrophils % Seg Neuts % (Manual) Lymphocytes % (Manual) Seg Neutrophils # Seg Neutrophils # Man Lymphocytes # (Manual) APTT POC ABG pH ABG pH POC ABG pCO2 POC ABG pO2 ABG pO2 ABG HCO3 ABG Base Excess ABG Hemoglobin VBG pH Oxyhemoglobin Sodium Potassium Chloride Carbon Dioxide BUN Creatinine Glucose POC Glucose 261 H 217 H 172 H Lactic Acid Calcium AST Alkaline Phosphatase CK-MB (CK-2) CK-MB (CK-2) Rel Index Albumin TSH Urine WBC (Auto) Salicylates 02/13/17 02/13/17 02/13/17 00:25 06:46 11:26 WBC RBC Hgb Hct MCV MCH RDW Plt Count Lymph % (Auto) [place] % (Auto) Eos % (Auto) Seg Neutrophils % Seg Neuts % (Manual) Lymphocytes % (Manual) Seg Neutrophils # Seg Neutrophils # Man Lymphocytes # (Manual) APTT POC ABG pH ABG pH POC ABG pCO2 POC ABG pO2 ABG pO2 ABG HCO3 ABG Base Excess ABG Hemoglobin VBG pH Oxyhemoglobin Sodium Potassium Chloride Carbon Dioxide BUN Creatinine Glucose POC Glucose 207 H 219 H 231 H Lactic Acid Calcium AST Alkaline Phosphatase CK-MB (CK-2) CK-MB (CK-2) Rel Index Albumin TSH Urine WBC (Auto) Salicylates 02/13/17 02/13/17 02/14/17 17:12 23:44 05:44 WBC RBC Hgb Hct MCV MCH RDW Plt Count Lymph % (Auto) [place] % (Auto) Eos % (Auto) Seg Neutrophils % Seg Neuts % (Manual) Lymphocytes % (Manual) Seg Neutrophils # Seg Neutrophils # Man Lymphocytes # (Manual) APTT POC ABG pH ABG pH POC ABG pCO2 POC ABG pO2 ABG pO2 ABG HCO3 ABG Base Excess ABG Hemoglobin VBG pH Oxyhemoglobin Sodium Potassium Chloride Carbon Dioxide BUN Creatinine Glucose POC Glucose 190 H 256 H 184 H Lactic Acid Calcium AST Alkaline Phosphatase CK-MB (CK-2) CK-MB (CK-2) Rel Index Albumin TSH Urine WBC (Auto) Salicylates 02/14/17 02/14/17 02/14/17 12:21 17:57 23:18 WBC RBC Hgb Hct MCV MCH RDW Plt Count Lymph % (Auto) [place] % (Auto) Eos % (Auto) Seg Neutrophils % Seg Neuts % (Manual) Lymphocytes % (Manual) Seg Neutrophils # Seg Neutrophils # Man Lymphocytes # (Manual) APTT POC ABG pH ABG pH POC ABG pCO2 POC ABG pO2 ABG pO2 ABG HCO3 ABG Base Excess ABG Hemoglobin VBG pH Oxyhemoglobin Sodium Potassium Chloride Carbon Dioxide BUN Creatinine Glucose POC Glucose 233 H 155 H 165 H Lactic Acid Calcium AST Alkaline Phosphatase CK-MB (CK-2) CK-MB (CK-2) Rel Index Albumin TSH Urine WBC (Auto) Salicylates 02/15/17 02/15/17 02/15/17 05:33 11:45 17:20 WBC RBC Hgb Hct MCV MCH RDW Plt Count Lymph % (Auto) [place] % (Auto) Eos % (Auto) Seg Neutrophils % Seg Neuts % (Manual) Lymphocytes % (Manual) Seg Neutrophils # Seg Neutrophils # Man Lymphocytes # (Manual) APTT POC ABG pH ABG pH POC ABG pCO2 POC ABG pO2 ABG pO2 ABG HCO3 ABG Base Excess ABG Hemoglobin VBG pH Oxyhemoglobin Sodium Potassium Chloride Carbon Dioxide BUN Creatinine Glucose POC Glucose 239 H 130 H 189 H Lactic Acid Calcium AST Alkaline Phosphatase CK-MB (CK-2) CK-MB (CK-2) Rel Index Albumin TSH Urine WBC (Auto) Salicylates 02/16/17 02/16/17 02/16/17 00:14 05:09 12:31 WBC RBC Hgb Hct MCV MCH RDW Plt Count Lymph % (Auto) [place] % (Auto) Eos % (Auto) Seg Neutrophils % Seg Neuts % (Manual) Lymphocytes % (Manual) Seg Neutrophils # Seg Neutrophils # Man Lymphocytes # (Manual) APTT POC ABG pH ABG pH POC ABG pCO2 POC ABG pO2 ABG pO2 ABG HCO3 ABG Base Excess ABG Hemoglobin VBG pH Oxyhemoglobin Sodium Potassium Chloride Carbon Dioxide BUN Creatinine Glucose POC Glucose 197 H 226 H 178 H Lactic Acid Calcium AST Alkaline Phosphatase CK-MB (CK-2) CK-MB (CK-2) Rel Index Albumin TSH Urine WBC (Auto) Salicylates 02/16/17 02/16/17 02/17/17 16:35 23:49 05:37 WBC RBC Hgb Hct MCV MCH RDW Plt Count Lymph % (Auto) [place] % (Auto) Eos % (Auto) Seg Neutrophils % Seg Neuts % (Manual) Lymphocytes % (Manual) Seg Neutrophils # Seg Neutrophils # Man Lymphocytes # (Manual) APTT POC ABG pH ABG pH POC ABG pCO2 POC ABG pO2 ABG pO2 ABG HCO3 ABG Base Excess ABG Hemoglobin VBG pH Oxyhemoglobin Sodium Potassium Chloride Carbon Dioxide BUN Creatinine Glucose POC Glucose 174 H 62 L 153 H Lactic Acid Calcium AST Alkaline Phosphatase CK-MB (CK-2) CK-MB (CK-2) Rel Index Albumin TSH Urine WBC (Auto) Salicylates 02/17/17 02/17/17 02/17/17 11:39 17:02 22:24 WBC RBC Hgb Hct MCV MCH RDW Plt Count Lymph % (Auto) [place] % (Auto) Eos % (Auto) Seg Neutrophils % Seg Neuts % (Manual) Lymphocytes % (Manual) Seg Neutrophils # Seg Neutrophils # Man Lymphocytes # (Manual) APTT POC ABG pH ABG pH POC ABG pCO2 POC ABG pO2 ABG pO2 ABG HCO3 ABG Base Excess ABG Hemoglobin VBG pH Oxyhemoglobin Sodium Potassium Chloride Carbon Dioxide BUN Creatinine Glucose POC Glucose 231 H 112 H 116 H Lactic Acid Calcium AST Alkaline Phosphatase CK-MB (CK-2) CK-MB (CK-2) Rel Index Albumin TSH Urine WBC (Auto) Salicylates 02/18/17 02/19/17 02/19/17 15:34 05:09 07:57 WBC RBC Hgb Hct MCV MCH RDW Plt Count Lymph % (Auto) [place] % (Auto) Eos % (Auto) Seg Neutrophils % Seg Neuts % (Manual) Lymphocytes % (Manual) Seg Neutrophils # Seg Neutrophils # Man Lymphocytes # (Manual) APTT POC ABG pH ABG pH POC ABG pCO2 POC ABG pO2 ABG pO2 ABG HCO3 ABG Base Excess ABG Hemoglobin VBG pH Oxyhemoglobin Sodium Potassium Chloride Carbon Dioxide BUN Creatinine Glucose POC Glucose 215 H 218 H 283 H Lactic Acid Calcium AST Alkaline Phosphatase CK-MB (CK-2) CK-MB (CK-2) Rel Index Albumin TSH Urine WBC (Auto) Salicylates 02/19/17 02/19/17 02/20/17 14:49 22:10 05:10 WBC RBC Hgb Hct MCV MCH RDW Plt Count Lymph % (Auto) [place] % (Auto) Eos % (Auto) Seg Neutrophils % Seg Neuts % (Manual) Lymphocytes % (Manual) Seg Neutrophils # Seg Neutrophils # Man Lymphocytes # (Manual) APTT POC ABG pH ABG pH POC ABG pCO2 POC ABG pO2 ABG pO2 ABG HCO3 ABG Base Excess ABG Hemoglobin VBG pH Oxyhemoglobin Sodium Potassium Chloride Carbon Dioxide BUN Creatinine Glucose POC Glucose 290 H 169 H 209 H Lactic Acid Calcium AST Alkaline Phosphatase CK-MB (CK-2) CK-MB (CK-2) Rel Index Albumin TSH Urine WBC (Auto) Salicylates 02/20/17 02/20/17 02/21/17 15:05 21:52 02:00 WBC RBC Hgb Hct MCV MCH RDW Plt Count Lymph % (Auto) [place] % (Auto) Eos % (Auto) Seg Neutrophils % Seg Neuts % (Manual) Lymphocytes % (Manual) Seg Neutrophils # Seg Neutrophils # Man Lymphocytes # (Manual) APTT POC ABG pH ABG pH POC ABG pCO2 POC ABG pO2 ABG pO2 ABG HCO3 ABG Base Excess ABG Hemoglobin VBG pH Oxyhemoglobin Sodium Potassium Chloride Carbon Dioxide BUN Creatinine Glucose POC Glucose 172 H 209 H 216 H Lactic Acid Calcium AST Alkaline Phosphatase CK-MB (CK-2) CK-MB (CK-2) Rel Index Albumin TSH Urine WBC (Auto) Salicylates 02/21/17 02/21/17 02/21/17 04:54 14:43 17:47 WBC RBC Hgb Hct MCV MCH RDW Plt Count Lymph % (Auto) [place] % (Auto) Eos % (Auto) Seg Neutrophils % Seg Neuts % (Manual) Lymphocytes % (Manual) Seg Neutrophils # Seg Neutrophils # Man Lymphocytes # (Manual) APTT POC ABG pH ABG pH POC ABG pCO2 POC ABG pO2 ABG pO2 ABG HCO3 ABG Base Excess ABG Hemoglobin VBG pH Oxyhemoglobin Sodium Potassium Chloride Carbon Dioxide BUN Creatinine Glucose POC Glucose 227 H 290 H 220 H Lactic Acid Calcium AST Alkaline Phosphatase CK-MB (CK-2) CK-MB (CK-2) Rel Index Albumin TSH Urine WBC (Auto) Salicylates 02/21/17 02/22/17 02/22/17 22:02 04:52 15:25 WBC RBC Hgb Hct MCV MCH RDW Plt Count Lymph % (Auto) [place] % (Auto) Eos % (Auto) Seg Neutrophils % Seg Neuts % (Manual) Lymphocytes % (Manual) Seg Neutrophils # Seg Neutrophils # Man Lymphocytes # (Manual) APTT POC ABG pH ABG pH POC ABG pCO2 POC ABG pO2 ABG pO2 ABG HCO3 ABG Base Excess ABG Hemoglobin VBG pH Oxyhemoglobin Sodium Potassium Chloride Carbon Dioxide BUN Creatinine Glucose POC Glucose 246 H 212 H 236 H Lactic Acid Calcium AST Alkaline Phosphatase CK-MB (CK-2) CK-MB (CK-2) Rel Index Albumin TSH Urine WBC (Auto) Salicylates 02/22/17 02/23/17 02/23/17 21:33 06:04 10:00 WBC RBC Hgb Hct MCV MCH RDW Plt Count Lymph % (Auto) [place] % (Auto) Eos % (Auto) Seg Neutrophils % Seg Neuts % (Manual) Lymphocytes % (Manual) Seg Neutrophils # Seg Neutrophils # Man Lymphocytes # (Manual) APTT POC ABG pH ABG pH POC ABG pCO2 POC ABG pO2 ABG pO2 ABG HCO3 ABG Base Excess ABG Hemoglobin VBG pH Oxyhemoglobin Sodium Potassium Chloride Carbon Dioxide BUN Creatinine Glucose POC Glucose 255 H 208 H 174 H Lactic Acid Calcium AST Alkaline Phosphatase CK-MB (CK-2) CK-MB (CK-2) Rel Index Albumin TSH Urine WBC (Auto) Salicylates 02/23/17 02/23/17 02/23/17 12:52 17:15 21:51 WBC RBC Hgb Hct MCV MCH RDW Plt Count Lymph % (Auto) [place] % (Auto) Eos % (Auto) Seg Neutrophils % Seg Neuts % (Manual) Lymphocytes % (Manual) Seg Neutrophils # Seg Neutrophils # Man Lymphocytes # (Manual) APTT POC ABG pH ABG pH POC ABG pCO2 POC ABG pO2 ABG pO2 ABG HCO3 ABG Base Excess ABG Hemoglobin VBG pH Oxyhemoglobin Sodium Potassium Chloride Carbon Dioxide BUN Creatinine Glucose POC Glucose 203 H 269 H 205 H Lactic Acid Calcium AST Alkaline Phosphatase CK-MB (CK-2) CK-MB (CK-2) Rel Index Albumin TSH Urine WBC (Auto) Salicylates 02/24/17 02/24/17 02/24/17 10:23 17:45 21:24 WBC RBC Hgb Hct MCV MCH RDW Plt Count Lymph % (Auto) [place] % (Auto) Eos % (Auto) Seg Neutrophils % Seg Neuts % (Manual) Lymphocytes % (Manual) Seg Neutrophils # Seg Neutrophils # Man Lymphocytes # (Manual) APTT POC ABG pH ABG pH POC ABG pCO2 POC ABG pO2 ABG pO2 ABG HCO3 ABG Base Excess ABG Hemoglobin VBG pH Oxyhemoglobin Sodium Potassium Chloride Carbon Dioxide BUN Creatinine Glucose POC Glucose 280 H 239 H 254 H Lactic Acid Calcium AST Alkaline Phosphatase CK-MB (CK-2) CK-MB (CK-2) Rel Index Albumin TSH Urine WBC (Auto) Salicylates 02/25/17 02/25/17 02/25/17 02:12 05:17 14:32 WBC RBC Hgb Hct MCV MCH RDW Plt Count Lymph % (Auto) [place] % (Auto) Eos % (Auto) Seg Neutrophils % Seg Neuts % (Manual) Lymphocytes % (Manual) Seg Neutrophils # Seg Neutrophils # Man Lymphocytes # (Manual) APTT POC ABG pH ABG pH POC ABG pCO2 POC ABG pO2 ABG pO2 ABG HCO3 ABG Base Excess ABG Hemoglobin VBG pH Oxyhemoglobin Sodium Potassium Chloride Carbon Dioxide BUN Creatinine Glucose POC Glucose 296 H 332 H 353 H Lactic Acid Calcium AST Alkaline Phosphatase CK-MB (CK-2) CK-MB (CK-2) Rel Index Albumin TSH Urine WBC (Auto) Salicylates 02/25/17 02/26/17 02/26/17 22:14 00:37 05:52 WBC RBC Hgb Hct MCV MCH RDW Plt Count Lymph % (Auto) [place] % (Auto) Eos % (Auto) Seg Neutrophils % Seg Neuts % (Manual) Lymphocytes % (Manual) Seg Neutrophils # Seg Neutrophils # Man Lymphocytes # (Manual) APTT POC ABG pH ABG pH POC ABG pCO2 POC ABG pO2 ABG pO2 ABG HCO3 ABG Base Excess ABG Hemoglobin VBG pH Oxyhemoglobin Sodium Potassium Chloride Carbon Dioxide BUN Creatinine Glucose POC Glucose 201 H 233 H 269 H Lactic Acid Calcium AST Alkaline Phosphatase CK-MB (CK-2) CK-MB (CK-2) Rel Index Albumin TSH Urine WBC (Auto) Salicylates 02/26/17 02/26/17 02/26/17 11:48 13:49 21:26 WBC RBC Hgb Hct MCV MCH RDW Plt Count Lymph % (Auto) [place] % (Auto) Eos % (Auto) Seg Neutrophils % Seg Neuts % (Manual) Lymphocytes % (Manual) Seg Neutrophils # Seg Neutrophils # Man Lymphocytes # (Manual) APTT POC ABG pH ABG pH POC ABG pCO2 POC ABG pO2 ABG pO2 ABG HCO3 ABG Base Excess ABG Hemoglobin VBG pH Oxyhemoglobin Sodium Potassium Chloride Carbon Dioxide BUN Creatinine Glucose POC Glucose 333 H 322 H 244 H Lactic Acid Calcium AST Alkaline Phosphatase CK-MB (CK-2) CK-MB (CK-2) Rel Index Albumin TSH Urine WBC (Auto) Salicylates 02/27/17 02/27/17 02/27/17 05:27 13:51 21:48 WBC RBC Hgb Hct MCV MCH RDW Plt Count Lymph % (Auto) [place] % (Auto) Eos % (Auto) Seg Neutrophils % Seg Neuts % (Manual) Lymphocytes % (Manual) Seg Neutrophils # Seg Neutrophils # Man Lymphocytes # (Manual) APTT POC ABG pH ABG pH POC ABG pCO2 POC ABG pO2 ABG pO2 ABG HCO3 ABG Base Excess ABG Hemoglobin VBG pH Oxyhemoglobin Sodium Potassium Chloride Carbon Dioxide BUN Creatinine Glucose POC Glucose 217 H 239 H 254 H Lactic Acid Calcium AST Alkaline Phosphatase CK-MB (CK-2) CK-MB (CK-2) Rel Index Albumin TSH Urine WBC (Auto) Salicylates 02/28/17 02/28/17 02/28/17 05:38 11:00 19:44 WBC RBC Hgb Hct MCV MCH RDW Plt Count Lymph % (Auto) [place] % (Auto) Eos % (Auto) Seg Neutrophils % Seg Neuts % (Manual) Lymphocytes % (Manual) Seg Neutrophils # Seg Neutrophils # Man Lymphocytes # (Manual) APTT POC ABG pH ABG pH POC ABG pCO2 POC ABG pO2 ABG pO2 ABG HCO3 ABG Base Excess ABG Hemoglobin VBG pH Oxyhemoglobin Sodium Potassium Chloride Carbon Dioxide BUN Creatinine Glucose POC Glucose 325 H 203 H 116 H Lactic Acid Calcium AST Alkaline Phosphatase CK-MB (CK-2) CK-MB (CK-2) Rel Index Albumin TSH Urine WBC (Auto) Salicylates 03/01/17 03/01/17 03/01/17 00:08 05:31 12:17 WBC RBC Hgb Hct MCV MCH RDW Plt Count Lymph % (Auto) [place] % (Auto) Eos % (Auto) Seg Neutrophils % Seg Neuts % (Manual) Lymphocytes % (Manual) Seg Neutrophils # Seg Neutrophils # Man Lymphocytes # (Manual) APTT POC ABG pH ABG pH POC ABG pCO2 POC ABG pO2 ABG pO2 ABG HCO3 ABG Base Excess ABG Hemoglobin VBG pH Oxyhemoglobin Sodium Potassium Chloride Carbon Dioxide BUN Creatinine Glucose POC Glucose 202 H 183 H 184 H Lactic Acid Calcium AST Alkaline Phosphatase CK-MB (CK-2) CK-MB (CK-2) Rel Index Albumin TSH Urine WBC (Auto) Salicylates 03/02/17 03/02/17 03/02/17 00:12 05:58 18:22 WBC RBC Hgb Hct MCV MCH RDW Plt Count Lymph % (Auto) [place] % (Auto) Eos % (Auto) Seg Neutrophils % Seg Neuts % (Manual) Lymphocytes % (Manual) Seg Neutrophils # Seg Neutrophils # Man Lymphocytes # (Manual) APTT POC ABG pH ABG pH POC ABG pCO2 POC ABG pO2 ABG pO2 ABG HCO3 ABG Base Excess ABG Hemoglobin VBG pH Oxyhemoglobin Sodium Potassium Chloride Carbon Dioxide BUN Creatinine Glucose POC Glucose 117 H 176 H 156 H Lactic Acid Calcium AST Alkaline Phosphatase CK-MB (CK-2) CK-MB (CK-2) Rel Index Albumin TSH Urine WBC (Auto) Salicylates 03/02/17 03/03/17 03/03/17 23:51 05:44 11:32 WBC RBC Hgb Hct MCV MCH RDW Plt Count Lymph % (Auto) [place] % (Auto) Eos % (Auto) Seg Neutrophils % Seg Neuts % (Manual) Lymphocytes % (Manual) Seg Neutrophils # Seg Neutrophils # Man Lymphocytes # (Manual) APTT POC ABG pH ABG pH POC ABG pCO2 POC ABG pO2 ABG pO2 ABG HCO3 ABG Base Excess ABG Hemoglobin VBG pH Oxyhemoglobin Sodium Potassium Chloride Carbon Dioxide BUN Creatinine Glucose POC Glucose 211 H 117 H 133 H Lactic Acid Calcium AST Alkaline Phosphatase CK-MB (CK-2) CK-MB (CK-2) Rel Index Albumin TSH Urine WBC (Auto) Salicylates 03/03/17 03/03/17 03/04/17 17:43 23:17 05:30 WBC RBC Hgb Hct MCV MCH RDW Plt Count Lymph % (Auto) [place] % (Auto) Eos % (Auto) Seg Neutrophils % Seg Neuts % (Manual) Lymphocytes % (Manual) Seg Neutrophils # Seg Neutrophils # Man Lymphocytes # (Manual) APTT POC ABG pH ABG pH POC ABG pCO2 POC ABG pO2 ABG pO2 ABG HCO3 ABG Base Excess ABG Hemoglobin VBG pH Oxyhemoglobin Sodium Potassium Chloride Carbon Dioxide BUN Creatinine Glucose POC Glucose 206 H 170 H 126 H Lactic Acid Calcium AST Alkaline Phosphatase CK-MB (CK-2) CK-MB (CK-2) Rel Index Albumin TSH Urine WBC (Auto) Salicylates 03/04/17 03/04/17 03/05/17 12:17 17:27 05:20 WBC RBC Hgb Hct MCV MCH RDW Plt Count Lymph % (Auto) [place] % (Auto) Eos % (Auto) Seg Neutrophils % Seg Neuts % (Manual) Lymphocytes % (Manual) Seg Neutrophils # Seg Neutrophils # Man Lymphocytes # (Manual) APTT POC ABG pH ABG pH POC ABG pCO2 POC ABG pO2 ABG pO2 ABG HCO3 ABG Base Excess ABG Hemoglobin VBG pH Oxyhemoglobin Sodium Potassium Chloride Carbon Dioxide BUN Creatinine Glucose POC Glucose 135 H 121 H 185 H Lactic Acid Calcium AST Alkaline Phosphatase CK-MB (CK-2) CK-MB (CK-2) Rel Index Albumin TSH Urine WBC (Auto) Salicylates 03/05/17 03/06/17 03/06/17 11:50 11:52 17:34 WBC RBC Hgb Hct MCV MCH RDW Plt Count Lymph % (Auto) [place] % (Auto) Eos % (Auto) Seg Neutrophils % Seg Neuts % (Manual) Lymphocytes % (Manual) Seg Neutrophils # Seg Neutrophils # Man Lymphocytes # (Manual) APTT POC ABG pH ABG pH POC ABG pCO2 POC ABG pO2 ABG pO2 ABG HCO3 ABG Base Excess ABG Hemoglobin VBG pH Oxyhemoglobin Sodium Potassium Chloride Carbon Dioxide BUN Creatinine Glucose POC Glucose 116 H 133 H 181 H Lactic Acid Calcium AST Alkaline Phosphatase CK-MB (CK-2) CK-MB (CK-2) Rel Index Albumin TSH Urine WBC (Auto) Salicylates 03/07/17 03/07/17 03/07/17 05:21 11:36 17:49 WBC RBC Hgb Hct MCV MCH RDW Plt Count Lymph % (Auto) [place] % (Auto) Eos % (Auto) Seg Neutrophils % Seg Neuts % (Manual) Lymphocytes % (Manual) Seg Neutrophils # Seg Neutrophils # Man Lymphocytes # (Manual) APTT POC ABG pH ABG pH POC ABG pCO2 POC ABG pO2 ABG pO2 ABG HCO3 ABG Base Excess ABG Hemoglobin VBG pH Oxyhemoglobin Sodium Potassium Chloride Carbon Dioxide BUN Creatinine Glucose POC Glucose 159 H 137 H 158 H Lactic Acid Calcium AST Alkaline Phosphatase CK-MB (CK-2) CK-MB (CK-2) Rel Index Albumin TSH Urine WBC (Auto) Salicylates 03/08/17 03/08/17 03/08/17 05:51 13:58 23:50 WBC RBC Hgb Hct MCV MCH RDW Plt Count Lymph % (Auto) [place] % (Auto) Eos % (Auto) Seg Neutrophils % Seg Neuts % (Manual) Lymphocytes % (Manual) Seg Neutrophils # Seg Neutrophils # Man Lymphocytes # (Manual) APTT POC ABG pH ABG pH POC ABG pCO2 POC ABG pO2 ABG pO2 ABG HCO3 ABG Base Excess ABG Hemoglobin VBG pH Oxyhemoglobin Sodium Potassium Chloride Carbon Dioxide BUN Creatinine Glucose POC Glucose 122 H 182 H 114 H Lactic Acid Calcium AST Alkaline Phosphatase CK-MB (CK-2) CK-MB (CK-2) Rel Index Albumin TSH Urine WBC (Auto) Salicylates 03/09/17 03/09/17 03/09/17 05:21 05:51 05:51 WBC RBC 3.61 L Hgb 9.5 L Hct 28.3 L MCV 79 L MCH 26 L RDW 17.8 H Plt Count Lymph % (Auto) [place] % (Auto) Eos % (Auto) Seg Neutrophils % Seg Neuts % (Manual) Lymphocytes % (Manual) Seg Neutrophils # Seg Neutrophils # Man Lymphocytes # (Manual) APTT POC ABG pH ABG pH POC ABG pCO2 POC ABG pO2 ABG pO2 ABG HCO3 ABG Base Excess ABG Hemoglobin VBG pH Oxyhemoglobin Sodium 134 L Potassium Chloride 95.5 L Carbon Dioxide BUN 33 H Creatinine 0.5 L Glucose 143 H POC Glucose 153 H Lactic Acid Calcium AST Alkaline Phosphatase CK-MB (CK-2) CK-MB (CK-2) Rel Index Albumin TSH Urine WBC (Auto) Salicylates 03/09/17 03/09/17 03/09/17 12:10 18:13 21:00 WBC RBC Hgb Hct MCV MCH RDW Plt Count Lymph % (Auto) [place] % (Auto) Eos % (Auto) Seg Neutrophils % Seg Neuts % (Manual) Lymphocytes % (Manual) Seg Neutrophils # Seg Neutrophils # Man Lymphocytes # (Manual) APTT POC ABG pH ABG pH POC ABG pCO2 POC ABG pO2 ABG pO2 ABG HCO3 ABG Base Excess ABG Hemoglobin VBG pH Oxyhemoglobin Sodium Potassium Chloride Carbon Dioxide BUN Creatinine Glucose POC Glucose 203 H 221 H 198 H Lactic Acid Calcium AST Alkaline Phosphatase CK-MB (CK-2) CK-MB (CK-2) Rel Index Albumin TSH Urine WBC (Auto) Salicylates 03/09/17 03/10/17 03/10/17 23:58 05:09 05:09 WBC RBC Hgb 10.3 L Hct 30.5 L MCV 78 L MCH 26 L RDW 17.9 H Plt Count Lymph % (Auto) [place] % (Auto) 10.0 H Eos % (Auto) 6.0 H Seg Neutrophils % Seg Neuts % (Manual) Lymphocytes % (Manual) Seg Neutrophils # Seg Neutrophils # Man Lymphocytes # (Manual) APTT POC ABG pH ABG pH POC ABG pCO2 POC ABG pO2 ABG pO2 ABG HCO3 ABG Base Excess ABG Hemoglobin VBG pH Oxyhemoglobin Sodium 132 L Potassium Chloride 92.2 L Carbon Dioxide BUN 33 H Creatinine 0.5 L Glucose 50 L POC Glucose 167 H Lactic Acid Calcium AST Alkaline Phosphatase CK-MB (CK-2) CK-MB (CK-2) Rel Index Albumin TSH Urine WBC (Auto) Salicylates 03/10/17 03/10/17 03/10/17 05:33 05:34 11:48 WBC RBC Hgb Hct MCV MCH RDW Plt Count Lymph % (Auto) [place] % (Auto) Eos % (Auto) Seg Neutrophils % Seg Neuts % (Manual) Lymphocytes % (Manual) Seg Neutrophils # Seg Neutrophils # Man Lymphocytes # (Manual) APTT POC ABG pH ABG pH POC ABG pCO2 POC ABG pO2 ABG pO2 ABG HCO3 ABG Base Excess ABG Hemoglobin VBG pH Oxyhemoglobin Sodium Potassium Chloride Carbon Dioxide BUN Creatinine Glucose POC Glucose 52 L 53 L 148 H Lactic Acid Calcium AST Alkaline Phosphatase CK-MB (CK-2) CK-MB (CK-2) Rel Index Albumin TSH Urine WBC (Auto) Salicylates 03/10/17 03/10/17 03/11/17 17:53 23:47 05:18 WBC RBC Hgb Hct MCV MCH RDW Plt Count Lymph % (Auto) [place] % (Auto) Eos % (Auto) Seg Neutrophils % Seg Neuts % (Manual) Lymphocytes % (Manual) Seg Neutrophils # Seg Neutrophils # Man Lymphocytes # (Manual) APTT POC ABG pH ABG pH POC ABG pCO2 POC ABG pO2 ABG pO2 ABG HCO3 ABG Base Excess ABG Hemoglobin VBG pH Oxyhemoglobin Sodium Potassium Chloride Carbon Dioxide BUN Creatinine Glucose POC Glucose 189 H 398 H 126 H Lactic Acid Calcium AST Alkaline Phosphatase CK-MB (CK-2) CK-MB (CK-2) Rel Index Albumin TSH Urine WBC (Auto) Salicylates 03/11/17 03/11/17 03/11/17 11:53 17:30 23:10 WBC RBC Hgb Hct MCV MCH RDW Plt Count Lymph % (Auto) [place] % (Auto) Eos % (Auto) Seg Neutrophils % Seg Neuts % (Manual) Lymphocytes % (Manual) Seg Neutrophils # Seg Neutrophils # Man Lymphocytes # (Manual) APTT POC ABG pH ABG pH POC ABG pCO2 POC ABG pO2 ABG pO2 ABG HCO3 ABG Base Excess ABG Hemoglobin VBG pH Oxyhemoglobin Sodium Potassium Chloride Carbon Dioxide BUN Creatinine Glucose POC Glucose 198 H 142 H 244 H Lactic Acid Calcium AST Alkaline Phosphatase CK-MB (CK-2) CK-MB (CK-2) Rel Index Albumin TSH Urine WBC (Auto) Salicylates 03/12/17 03/12/17 03/12/17 04:36 11:49 17:23 WBC RBC Hgb Hct MCV MCH RDW Plt Count Lymph % (Auto) [place] % (Auto) Eos % (Auto) Seg Neutrophils % Seg Neuts % (Manual) Lymphocytes % (Manual) Seg Neutrophils # Seg Neutrophils # Man Lymphocytes # (Manual) APTT POC ABG pH ABG pH POC ABG pCO2 POC ABG pO2 ABG pO2 ABG HCO3 ABG Base Excess ABG Hemoglobin VBG pH Oxyhemoglobin Sodium Potassium Chloride Carbon Dioxide BUN Creatinine Glucose POC Glucose 205 H 197 H 209 H Lactic Acid Calcium AST Alkaline Phosphatase CK-MB (CK-2) CK-MB (CK-2) Rel Index Albumin TSH Urine WBC (Auto) Salicylates 03/12/17 03/13/17 03/13/17 23:51 05:32 11:43 WBC RBC Hgb Hct MCV MCH RDW Plt Count Lymph % (Auto) [place] % (Auto) Eos % (Auto) Seg Neutrophils % Seg Neuts % (Manual) Lymphocytes % (Manual) Seg Neutrophils # Seg Neutrophils # Man Lymphocytes # (Manual) APTT POC ABG pH ABG pH POC ABG pCO2 POC ABG pO2 ABG pO2 ABG HCO3 ABG Base Excess ABG Hemoglobin VBG pH Oxyhemoglobin Sodium Potassium Chloride Carbon Dioxide BUN Creatinine Glucose POC Glucose 210 H 154 H 164 H Lactic Acid Calcium AST Alkaline Phosphatase CK-MB (CK-2) CK-MB (CK-2) Rel Index Albumin TSH Urine WBC (Auto) Salicylates 03/13/17 03/13/17 03/14/17 17:11 23:26 05:42 WBC RBC Hgb Hct MCV MCH RDW Plt Count Lymph % (Auto) [place] % (Auto) Eos % (Auto) Seg Neutrophils % Seg Neuts % (Manual) Lymphocytes % (Manual) Seg Neutrophils # Seg Neutrophils # Man Lymphocytes # (Manual) APTT POC ABG pH ABG pH POC ABG pCO2 POC ABG pO2 ABG pO2 ABG HCO3 ABG Base Excess ABG Hemoglobin VBG pH Oxyhemoglobin Sodium Potassium Chloride Carbon Dioxide BUN Creatinine Glucose POC Glucose 195 H 240 H 230 H Lactic Acid Calcium AST Alkaline Phosphatase CK-MB (CK-2) CK-MB (CK-2) Rel Index Albumin TSH Urine WBC (Auto) Salicylates 03/14/17 03/14/17 03/14/17 14:04 17:34 23:42 WBC RBC Hgb Hct MCV MCH RDW Plt Count Lymph % (Auto) [place] % (Auto) Eos % (Auto) Seg Neutrophils % Seg Neuts % (Manual) Lymphocytes % (Manual) Seg Neutrophils # Seg Neutrophils # Man Lymphocytes # (Manual) APTT POC ABG pH ABG pH POC ABG pCO2 POC ABG pO2 ABG pO2 ABG HCO3 ABG Base Excess ABG Hemoglobin VBG pH Oxyhemoglobin Sodium Potassium Chloride Carbon Dioxide BUN Creatinine Glucose POC Glucose 227 H 186 H 225 H Lactic Acid Calcium AST Alkaline Phosphatase CK-MB (CK-2) CK-MB (CK-2) Rel Index Albumin TSH Urine WBC (Auto) Salicylates 03/15/17 03/15/17 03/15/17 05:21 17:13 21:37 WBC RBC Hgb Hct MCV MCH RDW Plt Count Lymph % (Auto) [place] % (Auto) Eos % (Auto) Seg Neutrophils % Seg Neuts % (Manual) Lymphocytes % (Manual) Seg Neutrophils # Seg Neutrophils # Man Lymphocytes # (Manual) APTT POC ABG pH ABG pH POC ABG pCO2 POC ABG pO2 ABG pO2 ABG HCO3 ABG Base Excess ABG Hemoglobin VBG pH Oxyhemoglobin Sodium Potassium Chloride Carbon Dioxide BUN Creatinine Glucose POC Glucose 244 H 203 H 216 H Lactic Acid Calcium AST Alkaline Phosphatase CK-MB (CK-2) CK-MB (CK-2) Rel Index Albumin TSH Urine WBC (Auto) Salicylates 03/16/17 03/16/17 03/16/17 05:52 18:07 21:54 WBC RBC Hgb Hct MCV MCH RDW Plt Count Lymph % (Auto) [place] % (Auto) Eos % (Auto) Seg Neutrophils % Seg Neuts % (Manual) Lymphocytes % (Manual) Seg Neutrophils # Seg Neutrophils # Man Lymphocytes # (Manual) APTT POC ABG pH ABG pH POC ABG pCO2 POC ABG pO2 ABG pO2 ABG HCO3 ABG Base Excess ABG Hemoglobin VBG pH Oxyhemoglobin Sodium Potassium Chloride Carbon Dioxide BUN Creatinine Glucose POC Glucose 248 H 254 H 244 H Lactic Acid Calcium AST Alkaline Phosphatase CK-MB (CK-2) CK-MB (CK-2) Rel Index Albumin TSH Urine WBC (Auto) Salicylates 03/17/17 03/17/17 03/17/17 07:07 07:42 07:43 WBC RBC Hgb 9.7 L Hct 29.1 L MCV 78 L MCH 26 L RDW 17.4 H Plt Count Lymph % (Auto) [place] % (Auto) Eos % (Auto) Seg Neutrophils % Seg Neuts % (Manual) Lymphocytes % (Manual) Seg Neutrophils # Seg Neutrophils # Man Lymphocytes # (Manual) APTT POC ABG pH ABG pH POC ABG pCO2 POC ABG pO2 ABG pO2 ABG HCO3 ABG Base Excess ABG Hemoglobin VBG pH Oxyhemoglobin Sodium Potassium Chloride 96.6 L Carbon Dioxide BUN 30 H Creatinine 0.5 L Glucose 251 H POC Glucose 222 H Lactic Acid Calcium AST Alkaline Phosphatase CK-MB (CK-2) CK-MB (CK-2) Rel Index Albumin TSH Urine WBC (Auto) Salicylates 03/17/17 03/17/17 03/18/17 14:08 21:20 14:24 WBC RBC Hgb Hct MCV MCH RDW Plt Count Lymph % (Auto) [place] % (Auto) Eos % (Auto) Seg Neutrophils % Seg Neuts % (Manual) Lymphocytes % (Manual) Seg Neutrophils # Seg Neutrophils # Man Lymphocytes # (Manual) APTT POC ABG pH ABG pH POC ABG pCO2 POC ABG pO2 ABG pO2 ABG HCO3 ABG Base Excess ABG Hemoglobin VBG pH Oxyhemoglobin Sodium Potassium Chloride Carbon Dioxide BUN Creatinine Glucose POC Glucose 281 H 239 H 195 H Lactic Acid Calcium AST Alkaline Phosphatase CK-MB (CK-2) CK-MB (CK-2) Rel Index Albumin TSH Urine WBC (Auto) Salicylates 03/18/17 03/19/17 03/19/17 21:37 04:57 14:23 WBC RBC Hgb Hct MCV MCH RDW Plt Count Lymph % (Auto) [place] % (Auto) Eos % (Auto) Seg Neutrophils % Seg Neuts % (Manual) Lymphocytes % (Manual) Seg Neutrophils # Seg Neutrophils # Man Lymphocytes # (Manual) APTT POC ABG pH ABG pH POC ABG pCO2 POC ABG pO2 ABG pO2 ABG HCO3 ABG Base Excess ABG Hemoglobin VBG pH Oxyhemoglobin Sodium Potassium Chloride Carbon Dioxide BUN Creatinine Glucose POC Glucose 227 H 205 H 277 H Lactic Acid Calcium AST Alkaline Phosphatase CK-MB (CK-2) CK-MB (CK-2) Rel Index Albumin TSH Urine WBC (Auto) Salicylates 03/19/17 03/19/17 03/20/17 20:31 21:47 04:55 WBC RBC Hgb Hct MCV MCH RDW Plt Count Lymph % (Auto) [place] % (Auto) Eos % (Auto) Seg Neutrophils % Seg Neuts % (Manual) Lymphocytes % (Manual) Seg Neutrophils # Seg Neutrophils # Man Lymphocytes # (Manual) APTT POC ABG pH ABG pH POC ABG pCO2 POC ABG pO2 ABG pO2 ABG HCO3 ABG Base Excess ABG Hemoglobin VBG pH Oxyhemoglobin Sodium Potassium Chloride Carbon Dioxide BUN Creatinine Glucose POC Glucose 256 H 270 H 202 H Lactic Acid Calcium AST Alkaline Phosphatase CK-MB (CK-2) CK-MB (CK-2) Rel Index Albumin TSH Urine WBC (Auto) Salicylates 03/20/17 03/20/17 03/21/17 14:09 21:40 05:09 WBC RBC Hgb Hct MCV MCH RDW Plt Count Lymph % (Auto) [place] % (Auto) Eos % (Auto) Seg Neutrophils % Seg Neuts % (Manual) Lymphocytes % (Manual) Seg Neutrophils # Seg Neutrophils # Man Lymphocytes # (Manual) APTT POC ABG pH ABG pH POC ABG pCO2 POC ABG pO2 ABG pO2 ABG HCO3 ABG Base Excess ABG Hemoglobin VBG pH Oxyhemoglobin Sodium Potassium Chloride Carbon Dioxide BUN Creatinine Glucose POC Glucose 200 H 214 H 233 H Lactic Acid Calcium AST Alkaline Phosphatase CK-MB (CK-2) CK-MB (CK-2) Rel Index Albumin TSH Urine WBC (Auto) Salicylates 03/21/17 03/21/17 03/22/17 14:06 21:26 05:43 WBC RBC Hgb Hct MCV MCH RDW Plt Count Lymph % (Auto) [place] % (Auto) Eos % (Auto) Seg Neutrophils % Seg Neuts % (Manual) Lymphocytes % (Manual) Seg Neutrophils # Seg Neutrophils # Man Lymphocytes # (Manual) APTT POC ABG pH ABG pH POC ABG pCO2 POC ABG pO2 ABG pO2 ABG HCO3 ABG Base Excess ABG Hemoglobin VBG pH Oxyhemoglobin Sodium Potassium Chloride Carbon Dioxide BUN Creatinine Glucose POC Glucose 250 H 155 H 251 H Lactic Acid Calcium AST Alkaline Phosphatase CK-MB (CK-2) CK-MB (CK-2) Rel Index Albumin TSH Urine WBC (Auto) Salicylates 03/22/17 03/22/17 03/23/17 13:46 21:16 00:23 WBC RBC Hgb Hct MCV MCH RDW Plt Count Lymph % (Auto) [place] % (Auto) Eos % (Auto) Seg Neutrophils % Seg Neuts % (Manual) Lymphocytes % (Manual) Seg Neutrophils # Seg Neutrophils # Man Lymphocytes # (Manual) APTT POC ABG pH ABG pH POC ABG pCO2 POC ABG pO2 ABG pO2 ABG HCO3 ABG Base Excess ABG Hemoglobin VBG pH Oxyhemoglobin Sodium Potassium Chloride Carbon Dioxide BUN Creatinine Glucose POC Glucose 269 H 197 H 126 H Lactic Acid Calcium AST Alkaline Phosphatase CK-MB (CK-2) CK-MB (CK-2) Rel Index Albumin TSH Urine WBC (Auto) Salicylates 03/23/17 03/23/17 03/23/17 05:39 14:06 21:39 WBC RBC Hgb Hct MCV MCH RDW Plt Count Lymph % (Auto) [place] % (Auto) Eos % (Auto) Seg Neutrophils % Seg Neuts % (Manual) Lymphocytes % (Manual) Seg Neutrophils # Seg Neutrophils # Man Lymphocytes # (Manual) APTT POC ABG pH ABG pH POC ABG pCO2 POC ABG pO2 ABG pO2 ABG HCO3 ABG Base Excess ABG Hemoglobin VBG pH Oxyhemoglobin Sodium Potassium Chloride Carbon Dioxide BUN Creatinine Glucose POC Glucose 234 H 241 H 248 H Lactic Acid Calcium AST Alkaline Phosphatase CK-MB (CK-2) CK-MB (CK-2) Rel Index Albumin TSH Urine WBC (Auto) Salicylates 03/24/17 03/24/17 03/25/17 05:06 21:46 05:38 WBC RBC Hgb Hct MCV MCH RDW Plt Count Lymph % (Auto) [place] % (Auto) Eos % (Auto) Seg Neutrophils % Seg Neuts % (Manual) Lymphocytes % (Manual) Seg Neutrophils # Seg Neutrophils # Man Lymphocytes # (Manual) APTT POC ABG pH ABG pH POC ABG pCO2 POC ABG pO2 ABG pO2 ABG HCO3 ABG Base Excess ABG Hemoglobin VBG pH Oxyhemoglobin Sodium Potassium Chloride Carbon Dioxide BUN Creatinine Glucose POC Glucose 232 H 276 H 242 H Lactic Acid Calcium AST Alkaline Phosphatase CK-MB (CK-2) CK-MB (CK-2) Rel Index Albumin TSH Urine WBC (Auto) Salicylates 03/25/17 03/25/17 03/26/17 14:30 23:14 13:53 WBC RBC Hgb Hct MCV MCH RDW Plt Count Lymph % (Auto) [place] % (Auto) Eos % (Auto) Seg Neutrophils % Seg Neuts % (Manual) Lymphocytes % (Manual) Seg Neutrophils # Seg Neutrophils # Man Lymphocytes # (Manual) APTT POC ABG pH ABG pH POC ABG pCO2 POC ABG pO2 ABG pO2 ABG HCO3 ABG Base Excess ABG Hemoglobin VBG pH Oxyhemoglobin Sodium Potassium Chloride Carbon Dioxide BUN Creatinine Glucose POC Glucose 246 H 208 H 195 H Lactic Acid Calcium AST Alkaline Phosphatase CK-MB (CK-2) CK-MB (CK-2) Rel Index Albumin TSH Urine WBC (Auto) Salicylates 03/26/17 03/27/17 03/27/17 21:58 05:18 14:57 WBC RBC Hgb Hct MCV MCH RDW Plt Count Lymph % (Auto) [place] % (Auto) Eos % (Auto) Seg Neutrophils % Seg Neuts % (Manual) Lymphocytes % (Manual) Seg Neutrophils # Seg Neutrophils # Man Lymphocytes # (Manual) APTT POC ABG pH ABG pH POC ABG pCO2 POC ABG pO2 ABG pO2 ABG HCO3 ABG Base Excess ABG Hemoglobin VBG pH Oxyhemoglobin Sodium Potassium Chloride Carbon Dioxide BUN Creatinine Glucose POC Glucose 241 H 199 H 269 H Lactic Acid Calcium AST Alkaline Phosphatase CK-MB (CK-2) CK-MB (CK-2) Rel Index Albumin TSH Urine WBC (Auto) Salicylates 03/27/17 21:33 WBC RBC Hgb Hct MCV MCH RDW Plt Count Lymph % (Auto) [place] % (Auto) Eos % (Auto) Seg Neutrophils % Seg Neuts % (Manual) Lymphocytes % (Manual) Seg Neutrophils # Seg Neutrophils # Man Lymphocytes # (Manual) APTT POC ABG pH ABG pH POC ABG pCO2 POC ABG pO2 ABG pO2 ABG HCO3 ABG Base Excess ABG Hemoglobin VBG pH Oxyhemoglobin Sodium Potassium Chloride Carbon Dioxide BUN Creatinine Glucose POC Glucose 214 H Lactic Acid Calcium AST Alkaline Phosphatase CK-MB (CK-2) CK-MB (CK-2) Rel Index Albumin TSH Urine WBC (Auto) Salicylates
[2017-03-28] MEDS: PEPCID PO SCH ×2 (10:59→23:28)
[2017-03-28] MEDS: HEPARIN SUB-Q SCH ×2 (11:00→23:27)
--- NOTE | 2017-03-28 16:01 | Progress Note ---
Assessment and Plan 51 YO Male with CKD,HTN, DM presents to ED after found down and unresponsive by his neighbor, who subsequently called EMS. Upon arrival, patient found unresponsive on the floor with a serum glucose of 21, patient has a known history of alcohol abuse and delirium tremens. The patient was administered D5 approximate 500 mls during transport without change in mental status/level of consciousness. Pt seen and evaluated in ED was was found to be unable to protect his airway. Pt intubated and placed on vent support. Pt found to have evidence of hypothyroidism. - Hypoglycemic brain injury: supportivfc - Persistent vegetative state - Metabolic encephalopathy - Hypoglycemia/hypothermia, resolved - Acute respiratory failure mechanical ventilator greater than 96 hours: wean as tolerated. Pulm. following - UTI with klebsiella, treated ( Cx + on 01/28), then with ESBL likely colonization - Hyponatremia: corrected - Hypothyroidism: On levothyroxine - IDDM : continue with SSI - Hypertension: Controlled - Cont supportive care and current medication. Monitor vitals, repeat cx on - no growth - increased dose of long acting insulin to 15 unit - Patient is DNR- needs guardianship from the state to give consent for further management, as has no family to give consent. Subjective Date of service: 03/28/17 Principal diagnosis: Acute respiratory failure,encephalopathy Interval history: Remains unresponsive. No overnight event reported to me by patient's nurse. Objective - Constitutional Vitals: Vital Signs - 12hr 03/28/17 03/28/17 03/28/17 04:00 06:00 08:00 Temperature 97.2 F L Pulse Rate 73 70 Respiratory 20 18 Rate Blood Pressure 143/77 143/77 O2 Sat by Pulse 100 99 Oximetry 03/28/17 03/28/17 03/28/17 08:42 08:51 11:14 Temperature Pulse Rate 80 78 82 Respiratory 22 25 H Rate Blood Pressure 135/82 135/82 135/82 O2 Sat by Pulse 97 97 98 Oximetry 03/28/17 03/28/17 12:00 15:23 Temperature 97.2 F L Pulse Rate 82 Respiratory 25 H Rate Blood Pressure O2 Sat by Pulse 100 Oximetry General appearance: Present: no acute distress, well-nourished - EENT Eyes: PERRL, EOM intact - Neck Neck: supple, normal ROM - Respiratory Respiratory effort: normal Respiratory: bilateral: diminished - Cardiovascular Rhythm: regular Heart Sounds: Present: S1 & S2. Absent: gallop, rub Extremities: pulses intact, No edema, normal color, Full ROM - Gastrointestinal General gastrointestinal: Present: soft, non-tender, non-distended, normal bowel sounds - Integumentary Integumentary: clear, warm, dry - Musculoskeletal Musculoskeletal: 1, strength equal bilaterally - Neurologic Neurologic: moves all extremities - Psychiatric Psychiatric: memory intact, appropriate mood/affect, intact judgment & insight - Labs CBC & Chem 7: 03/17/17 07:43 03/17/17 07:42 Labs: Abnormal lab results 03/27/17 03/27/17 Range/Units 14:57 21:33 POC Glucose 269 H 214 H (70-105)
[2017-03-29] MEDS: HumuLIN R SUB-Q SCH ×4 (00:01→21:31)
[2017-03-29 04:46] LABS: Basophils % (Auto) 0.7 % (0.0-1.8); Eosinophils # (Auto) 0.2 K/mm3 (0.0-0.4); Eosinophils % (Auto) 3.1 % (0.0-4.3); Hematocrit 32.9 % (35.5-45.6); Hemoglobin 10.6 gm/dl (11.8-15.2); Lymphocytes # (Auto) 2.4 K/mm3 (1.2-5.4); Mean Corpuscular HGB Conc 32 % (32-34); Mean Corpuscular Volume 78 fl (84-94); Monocytes # (Auto) 0.6 K/mm3 (0.0-0.8); Monocytes % (Auto) 9.7 % (0.0-7.3); Platelet Count 355 K/mm3 (140-440); Red Blood Count 4.23 M/mm3 (3.65-5.03); Red Cell Distribution Width 17.6 % (13.2-15.2)
[2017-03-29 04:55] LABS: Mean Corpuscular Hemoglobin 25 pg (28-32)
[2017-03-29 05:03] LABS: Alanine Aminotransferase 71 units/L (7-56); Albumin 2.9 g/dL (3.9-5); BUN/Creatinine Ratio 56; Blood Urea Nitrogen 28 mg/dL (9-20); Calcium 9.2 mg/dL (8.4-10.2); Hemolysis Index 1
[2017-03-29] MEDS: SYNTHROID PO SCH (05:12)
[2017-03-29] MEDS: PEPCID PO SCH ×2 (10:22→21:32)
[2017-03-29] MEDS: HEPARIN SUB-Q SCH ×2 (10:22→21:32)
--- NOTE | 2017-03-29 12:30 | Progress Note ---
Assessment and Plan Assessment and plan: 51 YO Male with CKD,HTN, DM presents to ED for evaluation. Pt unable to provide history. Pt history taken from ED staff, and medical records. Pt found down and unresponsive by his neighbor, who subsequently called EMS. Upon arrival, patient found unresponsive on the floor with a serum glucose of 21, and covered with ants with insulin syringes around him and a bottle of atenolol which still had many pills remaining, patient has a known history of alcohol abuse and delirium tremens. The patient was administered D5 approximate 500 mls during transport without change in mental status/level of consciousness. Pt seen and evaluated in ED was was found to be unable to protect his airway. Pt intubated and placed on vent support. Pt found to have evidence of hypothyroidism. he was started on Synthroid. He has since been in the ICU. The patient continued to deteriorate. He is in this grade 4 coma, brain imaging does not show any reversible cause. The patient remains in a persistent vegetative states. Sepsis has been ruled out. member services representative try to locate family, even spoke to the family who he lives with. They themselves were unaware of any family members. After ethics committee meeting on the patient. The decision was made to make him DO NOT RESUSCITATE and to transfer him to hospice. Given his very poor prognosis and poor likelihood of recovery. It was decided that was not his best interest to get trach and PEG. Therefore he'll be transferred to the hospice intubated, at this time he is COMFORT CARE/DNR as per Ethics committee recommendation. Diagnosis Hypoglycemic brain injury Persistent vegetative state Metabolic encephalopathy Hypoglycemia/hypothermia Acute respiratory failure mechanical ventilator greater than 96 hours Sepsis ruled out, UTI ruled out hyponatremia, Hypothyroidism DNR- awaiting hospice placement, awaiting guardianship from the state to give consent, as has no family to give consent The high probability of a clinically significant, sudden or life threatening deterioration of the [neurologic, respiratory and CV] system(s) required my full and direct attention, intervention and personal management. The aggregate critical care time was [33] minutes. This time is in addition to time spent performing reported procedures but includes the following: [] Data Review and interpretation [] Patient assessment and monitoring of vital signs [] Documentation [] Medication orders and management History Interval history: patient remains comatose, no movement of extremities no fevers, no vomiting, no respiratory distress, no diarrhea Hospitalist Physical - Physical exam Narrative exam: General: comatose HEENT: Moist mucous membranes, , no lymphadenopathy Neck: supple Cardiac: S1-S2 heard Lungs: mech ventilated breath sounds Abdomen: soft , nontender, nondistended, bowel sounds positive Extremities: no edema clubbing or cyanosis Skin: no rash or lesions Neurologic: opens eyes, has corneal reflex, No gag reflex, pupils minimally responsive, no response to deep painful stimuli - Constitutional Vitals: Temp Pulse Resp BP Pulse Ox 98.6 F 66 14 139/79 99 03/29/17 08:00 03/29/17 10:01 03/29/17 10:01 03/29/17 10:01 03/29/17 10:01 General appearance: Present: no acute distress, well-nourished Results - Labs CBC & Chem 7: 03/29/17 04:32 03/29/17 04:32 Labs: Laboratory Last Values WBC 6.3 K/mm3 (4.5-11.0) 03/29/17 04:32 RBC 4.23 M/mm3 (3.65-5.03) 03/29/17 04:32 Hgb 10.6 gm/dl (11.8-15.2) L 03/29/17 04:32 Hct 32.9 % (35.5-45.6) L 03/29/17 04:32 MCV 78 fl (84-94) L 03/29/17 04:32 MCH 25 pg (28-32) L 03/29/17 04:32 MCHC 32 % (32-34) 03/29/17 04:32 RDW 17.6 % (13.2-15.2) H 03/29/17 04:32 Plt Count 355 K/mm3 (140-440) 03/29/17 04:32 Lymph % (Auto) 38.0 % (13.4-35.0) H 03/29/17 04:32 [place] % (Auto) 9.7 % (0.0-7.3) H 03/29/17 04:32 Eos % (Auto) 3.1 % (0.0-4.3) 03/29/17 04:32 Baso % (Auto) 0.7 % (0.0-1.8) 03/29/17 04:32 Lymph # 2.4 K/mm3 (1.2-5.4) 03/29/17 04:32 [place] # 0.6 K/mm3 (0.0-0.8) 03/29/17 04:32 Eos # 0.2 K/mm3 (0.0-0.4) 03/29/17 04:32 Baso # 0.0 K/mm3 (0.0-0.1) 03/29/17 04:32 Add Manual Diff Complete 01/10/17 04:30 Total Counted 100 01/10/17 04:30 Seg Neutrophils % 48.5 % (40.0-70.0) 03/29/17 04:32 Seg Neuts % (Manual) 88.0 % (40.0-70.0) H 01/10/17 04:30 Band Neutrophils % 7.0 % 01/10/17 04:30 Lymphocytes % (Manual) 4.0 % (13.4-35.0) L 01/10/17 04:30 Reactive Lymphs % (Man) 0 % 01/10/17 04:30 Monocytes % (Manual) 1.0 % (0.0-7.3) 01/10/17 04:30 Eosinophils % (Manual) 0 % (0.0-4.3) 01/10/17 04:30 Basophils % (Manual) 0 % (0.0-1.8) 01/10/17 04:30 Metamyelocytes % 0 % 01/10/17 04:30 Myelocytes % 0 % 01/10/17 04:30 Promyelocytes % 0 % 01/10/17 04:30 Blast Cells % 0 % 01/10/17 04:30 Nucleated RBC % Not Reportable 01/10/17 04:30 Seg Neutrophils # 3.0 K/mm3 (1.8-7.7) 03/29/17 04:32 Seg Neutrophils # Man 21.2 K/mm3 (1.8-7.7) H 01/10/17 04:30 Band Neutrophils # 1.7 K/mm3 01/10/17 04:30 Lymphocytes # (Manual) 1.0 K/mm3 (1.2-5.4) L 01/10/17 04:30 Abs React Lymphs (Man) 0.0 K/mm3 01/10/17 04:30 Monocytes # (Manual) 0.2 K/mm3 (0.0-0.8) 01/10/17 04:30 Eosinophils # (Manual) 0.0 K/mm3 (0.0-0.4) 01/10/17 04:30 Basophils # (Manual) 0.0 K/mm3 (0.0-0.1) 01/10/17 04:30 Metamyelocytes # 0.0 K/mm3 01/10/17 04:30 Myelocytes # 0.0 K/mm3 01/10/17 04:30 Promyelocytes # 0.0 K/mm3 01/10/17 04:30 Blast Cells # 0.0 K/mm3 01/10/17 04:30 WBC Morphology Not Reportable 01/10/17 04:30 Hypersegmented Neuts Not Reportable 01/10/17 04:30 Hyposegmented Neuts Not Reportable 01/10/17 04:30 Hypogranular Neuts Not Reportable 01/10/17 04:30 Smudge Cells Not Reportable 01/10/17 04:30 Toxic Granulation Not Reportable 01/10/17 04:30 Toxic Vacuolation Not Reportable 01/10/17 04:30 Dohle Bodies Not Reportable 01/10/17 04:30 Pelger-Huet Anomaly Not Reportable 01/10/17 04:30 [place] Rods Not Reportable 01/10/17 04:30 Platelet Estimate Consistent w auto 01/10/17 04:30 Clumped Platelets Not Reportable 01/10/17 04:30 Plt Clumps, EDTA Not Reportable 01/10/17 04:30 Large Platelets Not Reportable 01/10/17 04:30 Giant Platelets Not Reportable 01/10/17 04:30 Platelet Satelliting Not Reportable 01/10/17 04:30 Plt Morphology Comment Not Reportable 01/10/17 04:30 RBC Morphology Not Reportable 01/10/17 04:30 Dimorphic RBCs Not Reportable 01/10/17 04:30 Polychromasia Not Reportable 01/10/17 04:30 Hypochromasia 1+ 01/10/17 04:30 Poikilocytosis Not Reportable 01/10/17 04:30 Anisocytosis Not Reportable 01/10/17 04:30 Microcytosis Not Reportable 01/10/17 04:30 Macrocytosis Not Reportable 01/10/17 04:30 Spherocytes Not Reportable 01/10/17 04:30 Pappenheimer Bodies Not Reportable 01/10/17 04:30 Sickle Cells Not Reportable 01/10/17 04:30 Target Cells Not Reportable 01/10/17 04:30 Tear Drop Cells Not Reportable 01/10/17 04:30 Ovalocytes Not Reportable 01/10/17 04:30 Helmet Cells Not Reportable 01/10/17 04:30 [place] Bodies Not Reportable 01/10/17 04:30 [place] Rings Not Reportable 01/10/17 04:30 [place] Cells Not Reportable 01/10/17 04:30 Bite Cells Not Reportable 01/10/17 04:30 Crenated Cell Not Reportable 01/10/17 04:30 Elliptocytes Not Reportable 01/10/17 04:30 Acanthocytes (Spur) Not Reportable 01/10/17 04:30 Rouleaux Not Reportable 01/10/17 04:30 Hemoglobin C Crystals Not Reportable 01/10/17 04:30 Schistocytes Not Reportable 01/10/17 04:30 Malaria parasites Not Reportable 01/10/17 04:30 Kyle Bodies Not Reportable 01/10/17 04:30 Hem Pathologist Commnt No 01/10/17 04:30 PT 14.1 Sec. (12.2-14.9) 01/17/17 04:10 INR 1.04 (0.87-1.13) 01/17/17 04:10 APTT 36.6 Sec. (24.2-36.6) 01/17/17 04:10 POC ABG pH 7.442 (7.35-7.45) 01/31/17 18:55 ABG pH 7.420 pH Units (7.350-7.450) 01/17/17 04:35 POC ABG pCO2 32.8 (35-45) L 01/31/17 18:55 ABG pCO2 34.5 mm Hg 01/17/17 04:35 POC ABG pO2 82 (80-105) 01/31/17 18:55 ABG pO2 160.3 mm Hg (80.0-90.0) H 01/17/17 04:35 POC ABG HCO3 22.4 01/31/17 18:55 ABG HCO3 21.9 mmol/L (20.0-26.0) 01/17/17 04:35 POC ABG Total CO2 23 01/31/17 18:55 POC ABG O2 Sat 97 01/31/17 18:55 ABG O2 Saturation 99.0 % (95.0-99.0) 01/17/17 04:35 ABG O2 Content 11.1 (0.0-44) 01/17/17 04:35 POC ABG Base Excess -2 01/31/17 18:55 ABG Base Excess -2.3 mmol/L (-2.0-3.0) L 01/17/17 04:35 ABG Hemoglobin 7.9 gm/dl (14.0-18.0) L 01/17/17 04:35 ABG Carboxyhemoglobin 1.5 % (0.0-5.0) 01/17/17 04:35 ABG Methemoglobin 0.5 % (0.0-1.5) 01/17/17 04:35 VBG pH 7.284 (7.320-7.420) L 01/09/17 10:16 Oxyhemoglobin 97.1 % (95.0-99.0) 01/17/17 04:35 FiO2 25 % 01/31/17 18:55 Sodium 132 mmol/L (137-145) L 03/29/17 04:32 Potassium 4.5 mmol/L (3.6-5.0) 03/29/17 04:32 Chloride 94.0 mmol/L (98-107) L 03/29/17 04:32 Carbon Dioxide 26 mmol/L (22-30) 03/29/17 04:32 Anion Gap 17 mmol/L 03/29/17 04:32 BUN 28 mg/dL (9-20) H 03/29/17 04:32 Creatinine 0.5 mg/dL (0.8-1.5) L 03/29/17 04:32 Estimated GFR > 60 ml/min 03/29/17 04:32 BUN/Creatinine Ratio 56 % 03/29/17 04:32 Glucose 236 mg/dL (75-100) H 03/29/17 04:32 POC Glucose 286 (70-105) H 03/28/17 21:29 Lactic Acid 0.80 mmol/L (0.7-2.0) 01/30/17 11:49 Calcium 9.2 mg/dL (8.4-10.2) 03/29/17 04:32 Phosphorus 3.10 mg/dL (2.5-4.5) 03/29/17 04:32 Magnesium 1.90 mg/dL (1.7-2.3) 03/29/17 04:32 Total Bilirubin 0.30 mg/dL (0.1-1.2) 03/29/17 04:32 AST 40 units/L (5-40) 03/29/17 04:32 ALT 71 units/L (7-56) H 03/29/17 04:32 Alkaline Phosphatase 391 units/L (35-129) H 03/29/17 04:32 Ammonia 35.0 umol/L (25-60) 01/09/17 10:16 Total Creatine Kinase 135 units/L (55-170) 01/09/17 10:16 CK-MB (CK-2) 7.1 ng/mL (0.0-4.0) H 01/09/17 10:16 CK-MB (CK-2) Rel Index 5.2 (0-4) H 01/09/17 10:16 Troponin T < 0.010 ng/mL (0.00-0.029) 01/09/17 10:16 NT-Pro-B Natriuret Pep 602.9 pg/mL (0-900) 01/09/17 10:16 Total Protein 8.3 g/dL (6.3-8.2) H 03/29/17 04:32 Albumin 2.9 g/dL (3.9-5) L 03/29/17 04:32 Albumin/Globulin Ratio 0.5 % 03/29/17 04:32 TSH 52.800 mlU/mL (0.270-4.200) H 01/09/17 10:16 Free T4 0.78 ng/dL (0.76-1.46) 01/09/17 10:16 Total Cortisol 54.8 mcg/dL () 01/09/17 16:19 Urine Color Yellow (Yellow) 01/28/17 17:52 Urine Turbidity Clear (Clear) 01/28/17 17:52 Urine pH 6.0 (5.0-7.0) 01/28/17 17:52 Ur Specific [place] 1.016 (1.003-1.030) 01/28/17 17:52 Urine Protein 100 mg/dl mg/dL (Negative) 01/28/17 17:52 Urine Glucose (UA) >=500 mg/dL (Negative) 01/28/17 17:52 Urine Ketones Neg mg/dL (Negative) 01/28/17 17:52 Urine Blood Sm (Negative) 01/28/17 17:52 Urine Nitrite Neg (Negative) 01/28/17 17:52 Urine Bilirubin Neg (Negative) 01/28/17 17:52 Urine Urobilinogen < 2.0 mg/dL (<2.0) 01/28/17 17:52 Ur Leukocyte Esterase Lg (Negative) 01/28/17 17:52 Urine WBC (Auto) > 182.0 /HPF (0.0-6.0) H 01/28/17 17:52 Urine RBC (Auto) 113.0 /HPF (0.0-6.0) 01/28/17 17:52 Urine Bacteria (Auto) 2+ /HPF (Negative) 01/28/17 17:52 Urine WBC Clumps 3+ /HPF 01/28/17 17:52 Urine Mucus Few /HPF 01/14/17 14:07 Urine Yeast (Budding) 3+ /HPF 01/14/17 14:07 Salicylates < 0.3 mg/dL (2.8-20.0) L 01/09/17 10:16 Urine Opiates Screen Presumptive negative 01/09/17 10:23 Urine Methadone Screen Presumptive negative 01/09/17 10:23 Acetaminophen < 15.0 ug/mL (10.0-30.0) 01/09/17 10:16 Ur Barbiturates Screen Presumptive negative 01/09/17 10:23 Ur Phencyclidine Scrn Presumptive negative 01/09/17 10:23 Ur Amphetamines Screen Presumptive negative 01/09/17 10:23 U Benzodiazepines Scrn Presumptive negative 01/09/17 10:23 Urine Cocaine Screen Presumptive negative 01/09/17 10:23 U Marijuana (THC) Screen Presumptive negative 01/09/17 10:23 Drugs of Abuse Note Disclamer 01/09/17 10:23 Plasma/Serum Alcohol < 0.01 gm% (0-0.07) 01/09/17 10:16
[2017-03-30] MEDS: SYNTHROID PO SCH (05:51)
[2017-03-30] MEDS: HumuLIN R SUB-Q SCH ×3 (06:04→21:31)
[2017-03-30] MEDS: PEPCID PO SCH ×2 (09:19→21:22)
[2017-03-30] MEDS: HEPARIN SUB-Q SCH ×2 (09:19→21:21)
[2017-03-31] MEDS: SYNTHROID PO SCH (06:53)
[2017-03-31] MEDS: HumuLIN R SUB-Q SCH ×3 (06:53→22:00)
[2017-03-31] MEDS: HEPARIN SUB-Q SCH ×2 (09:57→21:33)
[2017-03-31] MEDS: PEPCID PO SCH ×2 (09:57→21:34)
--- NOTE | 2017-03-31 11:08 | Progress Note ---
Assessment and Plan 51 y/o male found down, concern for sepsis and now encephalopathic requiring mechanical ventilation. 1. continue supportive care 2. 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 I am aware that he is an AND but trach will not fix this problem and is not in my professional opinion the right thing to do for this patient. Most likely he will never be weaned from the vent and will remain in a persistent vegatative state. 3. Patient is not on abx therapy and currently does not need this 4. Overall prognosis continues to be poor. 5. Will not check labs 6. Vitals should be qshift 7. This patient's possibility of awakening from this persistent vegatative is unlikely. The current status is that there has been paper work filed to obtain guardianship so that end of life decisions can be made. Supportive care is reasonable but checking daily labs and doing other invasive things to this patient I do not feel is morally and ethically appropriate. Subjective Date of service: 03/31/17 Principal diagnosis: Acute respiratory failure,encephalopathy Interval history: No acute events. Clinical status is unchanged. Objective Vital Signs - 12hr 03/30/17 03/31/17 03/31/17 23:40 00:00 02:00 Temperature 98.5 F Pulse Rate 64 65 66 Respiratory 16 16 Rate Blood Pressure 135/84 125/77 125/77 O2 Sat by Pulse 100 100 100 Oximetry 03/31/17 03/31/17 03/31/17 04:00 04:22 06:00 Temperature 98.8 F Pulse Rate 69 70 Respiratory 14 15 Rate Blood Pressure 125/77 125/77 O2 Sat by Pulse 97 100 Oximetry 03/31/17 03/31/17 03/31/17 07:54 08:00 08:30 Temperature 98.4 F Pulse Rate 65 66 Respiratory 16 Rate Blood Pressure 152/83 152/83 O2 Sat by Pulse 100 100 Oximetry Constitutional: no acute distress, other (intubated, on vent support) Eyes: non-icteric ENT: oropharynx moist Neck: supple, no JVD Effort: normal Ascultation: Bilateral: clear, diminished breath sounds Cardiovascular: regular rate and rhythm Gastrointestinal: normoactive bowel sounds, soft, non-tender, non-distended Integumentary: normal Extremities: no cyanosis, no edema, pink and warm Neurologic: pupils equal and round, other (minimal responsive,no posturing, otherwise no changes, not following any commands. ) Psychiatric: other (unable to obtain) CBC and BMP: 03/29/17 04:32 03/29/17 04:32 ABG, PT/INR, D-dimer: ABG POC ABG pH 7.442 (7.35-7.45) 01/31/17 18:55 ABG pH 7.420 pH Units (7.350-7.450) 01/17/17 04:35 POC ABG pCO2 32.8 (35-45) L 01/31/17 18:55 ABG pCO2 34.5 mm Hg 01/17/17 04:35 POC ABG pO2 82 (80-105) 01/31/17 18:55 ABG pO2 160.3 mm Hg (80.0-90.0) H 01/17/17 04:35 POC ABG HCO3 22.4 01/31/17 18:55 POC ABG Total CO2 23 01/31/17 18:55 POC ABG O2 Sat 97 01/31/17 18:55 ABG O2 Saturation 99.0 % (95.0-99.0) 01/17/17 04:35 PT/INR, D-dimer PT 14.1 Sec. (12.2-14.9) 01/17/17 04:10 INR 1.04 (0.87-1.13) 01/17/17 04:10 Abnormal lab findings: Abnormal Labs 01/09/17 01/09/17 01/09/17 10:16 10:16 10:16 WBC RBC Hgb 9.7 L Hct 28.4 L MCV 76 L MCH 26 L RDW 17.2 H Plt Count 448 H Lymph % (Auto) Norman % (Auto) Eos % (Auto) Seg Neutrophils % 79.5 H Seg Neuts % (Manual) Lymphocytes % (Manual) Seg Neutrophils # Seg Neutrophils # Man Lymphocytes # (Manual) APTT 39.6 H POC ABG pH ABG pH POC ABG pCO2 POC ABG pO2 ABG pO2 ABG HCO3 ABG Base Excess ABG Hemoglobin VBG pH Oxyhemoglobin Sodium 132 L Potassium Chloride 96.7 L Carbon Dioxide 21 L BUN 34 H Creatinine Glucose POC Glucose Lactic Acid Calcium 8.3 L AST ALT Alkaline Phosphatase 151 H CK-MB (CK-2) 7.1 H CK-MB (CK-2) Rel Index 5.2 H Total Protein Albumin 3.3 L TSH Urine WBC (Auto) Salicylates 01/09/17 01/09/17 01/09/17 10:16 10:16 10:16 WBC RBC Hgb Hct MCV MCH RDW Plt Count Lymph % (Auto) Norman % (Auto) Eos % (Auto) Seg Neutrophils % Seg Neuts % (Manual) Lymphocytes % (Manual) Seg Neutrophils # Seg Neutrophils # Man Lymphocytes # (Manual) APTT POC ABG pH ABG pH POC ABG pCO2 POC ABG pO2 ABG pO2 ABG HCO3 ABG Base Excess ABG Hemoglobin VBG pH 7.284 L Oxyhemoglobin Sodium Potassium Chloride Carbon Dioxide BUN Creatinine Glucose POC Glucose Lactic Acid Calcium AST ALT Alkaline Phosphatase CK-MB (CK-2) CK-MB (CK-2) Rel Index Total Protein Albumin TSH 52.800 H Urine WBC (Auto) Salicylates < 0.3 L 01/09/17 01/09/17 01/09/17 10:23 11:14 12:49 WBC RBC Hgb Hct MCV MCH RDW Plt Count Lymph % (Auto) Norman % (Auto) Eos % (Auto) Seg Neutrophils % Seg Neuts % (Manual) Lymphocytes % (Manual) Seg Neutrophils # Seg Neutrophils # Man Lymphocytes # (Manual) APTT POC ABG pH ABG pH POC ABG pCO2 POC ABG pO2 643 H ABG pO2 ABG HCO3 ABG Base Excess ABG Hemoglobin VBG pH Oxyhemoglobin Sodium Potassium Chloride Carbon Dioxide BUN Creatinine Glucose POC Glucose < 40 L Lactic Acid Calcium AST ALT Alkaline Phosphatase CK-MB (CK-2) CK-MB (CK-2) Rel Index Total Protein Albumin TSH Urine WBC (Auto) 61.0 H Salicylates 01/09/17 01/09/17 01/09/17 13:13 14:21 15:09 WBC RBC Hgb Hct MCV MCH RDW Plt Count Lymph % (Auto) Norman % (Auto) Eos % (Auto) Seg Neutrophils % Seg Neuts % (Manual) Lymphocytes % (Manual) Seg Neutrophils # Seg Neutrophils # Man Lymphocytes # (Manual) APTT POC ABG pH ABG pH POC ABG pCO2 POC ABG pO2 ABG pO2 ABG HCO3 ABG Base Excess ABG Hemoglobin VBG pH Oxyhemoglobin Sodium Potassium Chloride Carbon Dioxide BUN Creatinine Glucose POC Glucose 128 H 65 L 120 H Lactic Acid Calcium AST ALT Alkaline Phosphatase CK-MB (CK-2) CK-MB (CK-2) Rel Index Total Protein Albumin TSH Urine WBC (Auto) Salicylates 01/09/17 01/09/17 01/10/17 16:28 17:14 04:30 WBC 24.1 H RBC 3.38 L Hgb 8.5 L Hct 26.0 L MCV 77 L MCH 25 L RDW 17.9 H Plt Count 474 H Lymph % (Auto) Norman % (Auto) Eos % (Auto) Seg Neutrophils % Seg Neuts % (Manual) 88.0 H Lymphocytes % (Manual) 4.0 L Seg Neutrophils # Seg Neutrophils # Man 21.2 H Lymphocytes # (Manual) 1.0 L APTT POC ABG pH ABG pH POC ABG pCO2 POC ABG pO2 ABG pO2 ABG HCO3 ABG Base Excess ABG Hemoglobin VBG pH Oxyhemoglobin Sodium Potassium Chloride Carbon Dioxide BUN Creatinine Glucose POC Glucose 44 L 112 H Lactic Acid Calcium AST ALT Alkaline Phosphatase CK-MB (CK-2) CK-MB (CK-2) Rel Index Total Protein Albumin TSH Urine WBC (Auto) Salicylates 01/10/17 01/10/17 01/10/17 04:30 05:41 05:45 WBC RBC Hgb Hct MCV MCH RDW Plt Count Lymph % (Auto) Norman % (Auto) Eos % (Auto) Seg Neutrophils % Seg Neuts % (Manual) Lymphocytes % (Manual) Seg Neutrophils # Seg Neutrophils # Man Lymphocytes # (Manual) APTT POC ABG pH ABG pH POC ABG pCO2 26.6 L POC ABG pO2 207 H ABG pO2 ABG HCO3 ABG Base Excess ABG Hemoglobin VBG pH Oxyhemoglobin Sodium Potassium Chloride Carbon Dioxide 17 L BUN 27 H Creatinine Glucose POC Glucose 68 L Lactic Acid Calcium 7.5 L AST ALT Alkaline Phosphatase CK-MB (CK-2) CK-MB (CK-2) Rel Index Total Protein Albumin TSH Urine WBC (Auto) Salicylates 01/10/17 01/10/17 01/10/17 07:47 10:50 13:41 WBC RBC Hgb Hct MCV MCH RDW Plt Count Lymph % (Auto) Norman % (Auto) Eos % (Auto) Seg Neutrophils % Seg Neuts % (Manual) Lymphocytes % (Manual) Seg Neutrophils # Seg Neutrophils # Man Lymphocytes # (Manual) APTT POC ABG pH ABG pH POC ABG pCO2 POC ABG pO2 ABG pO2 ABG HCO3 ABG Base Excess ABG Hemoglobin VBG pH Oxyhemoglobin Sodium Potassium Chloride Carbon Dioxide BUN Creatinine Glucose POC Glucose 148 H 165 H 114 H Lactic Acid Calcium AST ALT Alkaline Phosphatase CK-MB (CK-2) CK-MB (CK-2) Rel Index Total Protein Albumin TSH Urine WBC (Auto) Salicylates 01/10/17 01/10/17 01/10/17 20:20 21:39 23:24 WBC RBC Hgb Hct MCV MCH RDW Plt Count Lymph % (Auto) Norman % (Auto) Eos % (Auto) Seg Neutrophils % Seg Neuts % (Manual) Lymphocytes % (Manual) Seg Neutrophils # Seg Neutrophils # Man Lymphocytes # (Manual) APTT POC ABG pH ABG pH POC ABG pCO2 POC ABG pO2 ABG pO2 ABG HCO3 ABG Base Excess ABG Hemoglobin VBG pH Oxyhemoglobin Sodium Potassium Chloride Carbon Dioxide BUN Creatinine Glucose POC Glucose 150 H 175 H 155 H Lactic Acid Calcium AST ALT Alkaline Phosphatase CK-MB (CK-2) CK-MB (CK-2) Rel Index Total Protein Albumin TSH Urine WBC (Auto) Salicylates 01/11/17 01/11/17 01/11/17 00:19 04:06 05:20 WBC 15.2 H RBC 3.40 L Hgb 8.9 L Hct 26.3 L MCV 78 L MCH 26 L RDW 18.6 H Plt Count 462 H Lymph % (Auto) 13.2 L Norman % (Auto) Eos % (Auto) Seg Neutrophils % 80.8 H Seg Neuts % (Manual) Lymphocytes % (Manual) Seg Neutrophils # 12.3 H Seg Neutrophils # Man Lymphocytes # (Manual) APTT POC ABG pH 7.463 H ABG pH POC ABG pCO2 26.2 L POC ABG pO2 185 H ABG pO2 ABG HCO3 ABG Base Excess ABG Hemoglobin VBG pH Oxyhemoglobin Sodium Potassium Chloride Carbon Dioxide BUN Creatinine Glucose POC Glucose 163 H Lactic Acid Calcium AST ALT Alkaline Phosphatase CK-MB (CK-2) CK-MB (CK-2) Rel Index Total Protein Albumin TSH Urine WBC (Auto) Salicylates 01/11/17 01/11/17 01/11/17 05:20 06:21 07:57 WBC RBC Hgb Hct MCV MCH RDW Plt Count Lymph % (Auto) Norman % (Auto) Eos % (Auto) Seg Neutrophils % Seg Neuts % (Manual) Lymphocytes % (Manual) Seg Neutrophils # Seg Neutrophils # Man Lymphocytes # (Manual) APTT POC ABG pH ABG pH POC ABG pCO2 POC ABG pO2 ABG pO2 ABG HCO3 ABG Base Excess ABG Hemoglobin VBG pH Oxyhemoglobin Sodium Potassium 3.4 L Chloride 111.5 H Carbon Dioxide 17 L BUN Creatinine Glucose 147 H POC Glucose 139 H 188 H Lactic Acid Calcium 8.0 L AST ALT Alkaline Phosphatase CK-MB (CK-2) CK-MB (CK-2) Rel Index Total Protein Albumin TSH Urine WBC (Auto) Salicylates 01/11/17 01/11/17 01/11/17 11:46 16:50 23:15 WBC RBC Hgb Hct MCV MCH RDW Plt Count Lymph % (Auto) Norman % (Auto) Eos % (Auto) Seg Neutrophils % Seg Neuts % (Manual) Lymphocytes % (Manual) Seg Neutrophils # Seg Neutrophils # Man Lymphocytes # (Manual) APTT POC ABG pH ABG pH POC ABG pCO2 POC ABG pO2 ABG pO2 ABG HCO3 ABG Base Excess ABG Hemoglobin VBG pH Oxyhemoglobin Sodium Potassium Chloride Carbon Dioxide BUN Creatinine Glucose POC Glucose 199 H 235 H 155 H Lactic Acid Calcium AST ALT Alkaline Phosphatase CK-MB (CK-2) CK-MB (CK-2) Rel Index Total Protein Albumin TSH Urine WBC (Auto) Salicylates 01/12/17 01/12/17 01/12/17 05:02 06:56 14:50 WBC RBC Hgb Hct MCV MCH RDW Plt Count Lymph % (Auto) Norman % (Auto) Eos % (Auto) Seg Neutrophils % Seg Neuts % (Manual) Lymphocytes % (Manual) Seg Neutrophils # Seg Neutrophils # Man Lymphocytes # (Manual) APTT POC ABG pH ABG pH POC ABG pCO2 28.0 L POC ABG pO2 178 H ABG pO2 ABG HCO3 ABG Base Excess ABG Hemoglobin VBG pH Oxyhemoglobin Sodium Potassium Chloride Carbon Dioxide BUN Creatinine Glucose POC Glucose 119 H 164 H Lactic Acid Calcium AST ALT Alkaline Phosphatase CK-MB (CK-2) CK-MB (CK-2) Rel Index Total Protein Albumin TSH Urine WBC (Auto) Salicylates 01/13/17 01/13/17 01/13/17 03:37 03:37 04:26 WBC RBC 3.61 L Hgb 9.3 L Hct 28.0 L MCV 78 L MCH 26 L RDW 18.2 H Plt Count Lymph % (Auto) Norman % (Auto) Eos % (Auto) Seg Neutrophils % Seg Neuts % (Manual) Lymphocytes % (Manual) Seg Neutrophils # Seg Neutrophils # Man Lymphocytes # (Manual) APTT POC ABG pH 7.485 H ABG pH POC ABG pCO2 25.4 L POC ABG pO2 73 L ABG pO2 ABG HCO3 ABG Base Excess ABG Hemoglobin VBG pH Oxyhemoglobin Sodium Potassium Chloride 112.4 H Carbon Dioxide 19 L BUN Creatinine Glucose 118 H POC Glucose Lactic Acid Calcium 8.0 L AST ALT Alkaline Phosphatase CK-MB (CK-2) CK-MB (CK-2) Rel Index Total Protein Albumin TSH Urine WBC (Auto) Salicylates 01/13/17 01/13/17 01/13/17 06:15 11:50 17:31 WBC RBC Hgb Hct MCV MCH RDW Plt Count Lymph % (Auto) Norman % (Auto) Eos % (Auto) Seg Neutrophils % Seg Neuts % (Manual) Lymphocytes % (Manual) Seg Neutrophils # Seg Neutrophils # Man Lymphocytes # (Manual) APTT POC ABG pH ABG pH POC ABG pCO2 POC ABG pO2 ABG pO2 ABG HCO3 ABG Base Excess ABG Hemoglobin VBG pH Oxyhemoglobin Sodium Potassium Chloride Carbon Dioxide BUN Creatinine Glucose POC Glucose 116 H 171 H 203 H Lactic Acid Calcium AST ALT Alkaline Phosphatase CK-MB (CK-2) CK-MB (CK-2) Rel Index Total Protein Albumin TSH Urine WBC (Auto) Salicylates 01/14/17 01/14/17 01/14/17 00:02 04:50 04:50 WBC RBC 3.32 L Hgb 8.5 L Hct 26.1 L MCV 79 L MCH 26 L RDW 18.2 H Plt Count Lymph % (Auto) Norman % (Auto) 9.0 H Eos % (Auto) Seg Neutrophils % Seg Neuts % (Manual) Lymphocytes % (Manual) Seg Neutrophils # Seg Neutrophils # Man Lymphocytes # (Manual) APTT POC ABG pH ABG pH POC ABG pCO2 POC ABG pO2 ABG pO2 ABG HCO3 ABG Base Excess ABG Hemoglobin VBG pH Oxyhemoglobin Sodium Potassium Chloride 112.5 H Carbon Dioxide BUN Creatinine Glucose 149 H POC Glucose 157 H Lactic Acid Calcium 8.1 L AST ALT Alkaline Phosphatase CK-MB (CK-2) CK-MB (CK-2) Rel Index Total Protein Albumin TSH Urine WBC (Auto) Salicylates 01/14/17 01/14/17 01/14/17 05:10 11:27 14:07 WBC RBC Hgb Hct MCV MCH RDW Plt Count Lymph % (Auto) Norman % (Auto) Eos % (Auto) Seg Neutrophils % Seg Neuts % (Manual) Lymphocytes % (Manual) Seg Neutrophils # Seg Neutrophils # Man Lymphocytes # (Manual) APTT POC ABG pH ABG pH POC ABG pCO2 POC ABG pO2 ABG pO2 ABG HCO3 ABG Base Excess ABG Hemoglobin VBG pH Oxyhemoglobin Sodium Potassium Chloride Carbon Dioxide BUN Creatinine Glucose POC Glucose 176 H 147 H Lactic Acid Calcium AST ALT Alkaline Phosphatase CK-MB (CK-2) CK-MB (CK-2) Rel Index Total Protein Albumin TSH Urine WBC (Auto) 53.0 H Salicylates 01/14/17 01/15/17 01/15/17 16:52 00:04 05:26 WBC RBC Hgb Hct MCV MCH RDW Plt Count Lymph % (Auto) Norman % (Auto) Eos % (Auto) Seg Neutrophils % Seg Neuts % (Manual) Lymphocytes % (Manual) Seg Neutrophils # Seg Neutrophils # Man Lymphocytes # (Manual) APTT POC ABG pH ABG pH POC ABG pCO2 POC ABG pO2 ABG pO2 ABG HCO3 ABG Base Excess ABG Hemoglobin VBG pH Oxyhemoglobin Sodium Potassium Chloride Carbon Dioxide BUN Creatinine Glucose POC Glucose 131 H 193 H 215 H Lactic Acid Calcium AST ALT Alkaline Phosphatase CK-MB (CK-2) CK-MB (CK-2) Rel Index Total Protein Albumin TSH Urine WBC (Auto) Salicylates 01/15/17 01/15/17 01/15/17 11:49 17:47 21:33 WBC RBC Hgb Hct MCV MCH RDW Plt Count Lymph % (Auto) Norman % (Auto) Eos % (Auto) Seg Neutrophils % Seg Neuts % (Manual) Lymphocytes % (Manual) Seg Neutrophils # Seg Neutrophils # Man Lymphocytes # (Manual) APTT POC ABG pH ABG pH POC ABG pCO2 POC ABG pO2 ABG pO2 ABG HCO3 ABG Base Excess ABG Hemoglobin VBG pH Oxyhemoglobin Sodium Potassium Chloride Carbon Dioxide BUN Creatinine Glucose POC Glucose 121 H 211 H 275 H Lactic Acid Calcium AST ALT Alkaline Phosphatase CK-MB (CK-2) CK-MB (CK-2) Rel Index Total Protein Albumin TSH Urine WBC (Auto) Salicylates 01/16/17 01/16/17 01/16/17 04:30 05:28 13:45 WBC RBC Hgb Hct MCV MCH RDW Plt Count Lymph % (Auto) Norman % (Auto) Eos % (Auto) Seg Neutrophils % Seg Neuts % (Manual) Lymphocytes % (Manual) Seg Neutrophils # Seg Neutrophils # Man Lymphocytes # (Manual) APTT POC ABG pH ABG pH 7.457 H POC ABG pCO2 POC ABG pO2 ABG pO2 55.1 L ABG HCO3 19.4 L ABG Base Excess -4.0 L ABG Hemoglobin 6.8 L VBG pH Oxyhemoglobin 94.9 L Sodium Potassium Chloride Carbon Dioxide BUN Creatinine Glucose POC Glucose 271 H 236 H Lactic Acid Calcium AST ALT Alkaline Phosphatase CK-MB (CK-2) CK-MB (CK-2) Rel Index Total Protein Albumin TSH Urine WBC (Auto) Salicylates 01/16/17 01/17/17 01/17/17 21:39 04:10 04:10 WBC 4.4 L RBC 2.98 L Hgb 7.7 L Hct 23.3 L MCV 78 L MCH 26 L RDW 18.1 H Plt Count Lymph % (Auto) Norman % (Auto) Eos % (Auto) Seg Neutrophils % Seg Neuts % (Manual) Lymphocytes % (Manual) Seg Neutrophils # Seg Neutrophils # Man Lymphocytes # (Manual) APTT POC ABG pH ABG pH POC ABG pCO2 POC ABG pO2 ABG pO2 ABG HCO3 ABG Base Excess ABG Hemoglobin VBG pH Oxyhemoglobin Sodium Potassium 3.3 L Chloride 108.7 H Carbon Dioxide 20 L BUN 8 L Creatinine Glucose 202 H POC Glucose 258 H Lactic Acid Calcium 7.6 L AST ALT Alkaline Phosphatase CK-MB (CK-2) CK-MB (CK-2) Rel Index Total Protein Albumin TSH Urine WBC (Auto) Salicylates 01/17/17 01/17/17 01/17/17 04:35 12:23 16:01 WBC RBC Hgb Hct MCV MCH RDW Plt Count Lymph % (Auto) Norman % (Auto) Eos % (Auto) Seg Neutrophils % Seg Neuts % (Manual) Lymphocytes % (Manual) Seg Neutrophils # Seg Neutrophils # Man Lymphocytes # (Manual) APTT POC ABG pH ABG pH POC ABG pCO2 POC ABG pO2 ABG pO2 160.3 H ABG HCO3 ABG Base Excess -2.3 L ABG Hemoglobin 7.9 L VBG pH Oxyhemoglobin Sodium Potassium Chloride Carbon Dioxide BUN Creatinine Glucose POC Glucose 321 H 239 H Lactic Acid Calcium AST ALT Alkaline Phosphatase CK-MB (CK-2) CK-MB (CK-2) Rel Index Total Protein Albumin TSH Urine WBC (Auto) Salicylates 01/18/17 01/18/17 01/18/17 05:07 12:09 17:54 WBC RBC Hgb Hct MCV MCH RDW Plt Count Lymph % (Auto) Norman % (Auto) Eos % (Auto) Seg Neutrophils % Seg Neuts % (Manual) Lymphocytes % (Manual) Seg Neutrophils # Seg Neutrophils # Man Lymphocytes # (Manual) APTT POC ABG pH ABG pH POC ABG pCO2 POC ABG pO2 ABG pO2 ABG HCO3 ABG Base Excess ABG Hemoglobin VBG pH Oxyhemoglobin Sodium Potassium Chloride Carbon Dioxide BUN Creatinine Glucose POC Glucose 155 H 203 H 132 H Lactic Acid Calcium AST ALT Alkaline Phosphatase CK-MB (CK-2) CK-MB (CK-2) Rel Index Total Protein Albumin TSH Urine WBC (Auto) Salicylates 01/18/17 01/19/17 01/19/17 23:43 04:28 12:11 WBC RBC Hgb Hct MCV MCH RDW Plt Count Lymph % (Auto) Norman % (Auto) Eos % (Auto) Seg Neutrophils % Seg Neuts % (Manual) Lymphocytes % (Manual) Seg Neutrophils # Seg Neutrophils # Man Lymphocytes # (Manual) APTT POC ABG pH ABG pH POC ABG pCO2 POC ABG pO2 ABG pO2 ABG HCO3 ABG Base Excess ABG Hemoglobin VBG pH Oxyhemoglobin Sodium Potassium Chloride Carbon Dioxide BUN Creatinine Glucose POC Glucose 125 H 182 H 153 H Lactic Acid Calcium AST ALT Alkaline Phosphatase CK-MB (CK-2) CK-MB (CK-2) Rel Index Total Protein Albumin TSH Urine WBC (Auto) Salicylates 01/19/17 01/20/17 01/20/17 17:23 00:12 05:44 WBC RBC Hgb Hct MCV MCH RDW Plt Count Lymph % (Auto) Norman % (Auto) Eos % (Auto) Seg Neutrophils % Seg Neuts % (Manual) Lymphocytes % (Manual) Seg Neutrophils # Seg Neutrophils # Man Lymphocytes # (Manual) APTT POC ABG pH ABG pH POC ABG pCO2 POC ABG pO2 ABG pO2 ABG HCO3 ABG Base Excess ABG Hemoglobin VBG pH Oxyhemoglobin Sodium Potassium Chloride Carbon Dioxide BUN Creatinine Glucose POC Glucose 66 L 139 H 176 H Lactic Acid Calcium AST ALT Alkaline Phosphatase CK-MB (CK-2) CK-MB (CK-2) Rel Index Total Protein Albumin TSH Urine WBC (Auto) Salicylates 01/20/17 01/20/17 01/20/17 11:48 17:42 23:43 WBC RBC Hgb Hct MCV MCH RDW Plt Count Lymph % (Auto) Norman % (Auto) Eos % (Auto) Seg Neutrophils % Seg Neuts % (Manual) Lymphocytes % (Manual) Seg Neutrophils # Seg Neutrophils # Man Lymphocytes # (Manual) APTT POC ABG pH ABG pH POC ABG pCO2 POC ABG pO2 ABG pO2 ABG HCO3 ABG Base Excess ABG Hemoglobin VBG pH Oxyhemoglobin Sodium Potassium Chloride Carbon Dioxide BUN Creatinine Glucose POC Glucose 218 H 132 H 178 H Lactic Acid Calcium AST ALT Alkaline Phosphatase CK-MB (CK-2) CK-MB (CK-2) Rel Index Total Protein Albumin TSH Urine WBC (Auto) Salicylates 01/21/17 01/21/17 01/21/17 05:34 11:17 23:37 WBC RBC Hgb Hct MCV MCH RDW Plt Count Lymph % (Auto) Norman % (Auto) Eos % (Auto) Seg Neutrophils % Seg Neuts % (Manual) Lymphocytes % (Manual) Seg Neutrophils # Seg Neutrophils # Man Lymphocytes # (Manual) APTT POC ABG pH ABG pH POC ABG pCO2 POC ABG pO2 ABG pO2 ABG HCO3 ABG Base Excess ABG Hemoglobin VBG pH Oxyhemoglobin Sodium Potassium Chloride Carbon Dioxide BUN Creatinine Glucose POC Glucose 106 H 213 H 140 H Lactic Acid Calcium AST ALT Alkaline Phosphatase CK-MB (CK-2) CK-MB (CK-2) Rel Index Total Protein Albumin TSH Urine WBC (Auto) Salicylates 01/22/17 01/22/17 01/22/17 04:00 04:00 04:58 WBC RBC 3.26 L Hgb 8.3 L Hct 25.5 L MCV 78 L MCH 25 L RDW 17.9 H Plt Count Lymph % (Auto) Norman % (Auto) 7.9 H Eos % (Auto) 6.2 H Seg Neutrophils % Seg Neuts % (Manual) Lymphocytes % (Manual) Seg Neutrophils # Seg Neutrophils # Man Lymphocytes # (Manual) APTT POC ABG pH ABG pH POC ABG pCO2 POC ABG pO2 ABG pO2 ABG HCO3 ABG Base Excess ABG Hemoglobin VBG pH Oxyhemoglobin Sodium Potassium Chloride 95.5 L Carbon Dioxide 31 H D BUN Creatinine Glucose 134 H POC Glucose 146 H Lactic Acid Calcium AST 44 H ALT Alkaline Phosphatase 379 H CK-MB (CK-2) CK-MB (CK-2) Rel Index Total Protein Albumin 2.7 L TSH Urine WBC (Auto) Salicylates 01/22/17 01/22/17 01/22/17 12:12 18:12 23:39 WBC RBC Hgb Hct MCV MCH RDW Plt Count Lymph % (Auto) Norman % (Auto) Eos % (Auto) Seg Neutrophils % Seg Neuts % (Manual) Lymphocytes % (Manual) Seg Neutrophils # Seg Neutrophils # Man Lymphocytes # (Manual) APTT POC ABG pH ABG pH POC ABG pCO2 POC ABG pO2 ABG pO2 ABG HCO3 ABG Base Excess ABG Hemoglobin VBG pH Oxyhemoglobin Sodium Potassium Chloride Carbon Dioxide BUN Creatinine Glucose POC Glucose 255 H 182 H 134 H Lactic Acid Calcium AST ALT Alkaline Phosphatase CK-MB (CK-2) CK-MB (CK-2) Rel Index Total Protein Albumin TSH Urine WBC (Auto) Salicylates 01/23/17 01/23/17 01/23/17 04:43 12:12 17:36 WBC RBC Hgb Hct MCV MCH RDW Plt Count Lymph % (Auto) Norman % (Auto) Eos % (Auto) Seg Neutrophils % Seg Neuts % (Manual) Lymphocytes % (Manual) Seg Neutrophils # Seg Neutrophils # Man Lymphocytes # (Manual) APTT POC ABG pH ABG pH POC ABG pCO2 POC ABG pO2 ABG pO2 ABG HCO3 ABG Base Excess ABG Hemoglobin VBG pH Oxyhemoglobin Sodium Potassium Chloride Carbon Dioxide BUN Creatinine Glucose POC Glucose 218 H 128 H 156 H Lactic Acid Calcium AST ALT Alkaline Phosphatase CK-MB (CK-2) CK-MB (CK-2) Rel Index Total Protein Albumin TSH Urine WBC (Auto) Salicylates 01/24/17 01/24/17 01/24/17 00:08 05:16 11:40 WBC RBC Hgb Hct MCV MCH RDW Plt Count Lymph % (Auto) [place] % (Auto) Eos % (Auto) Seg Neutrophils % Seg Neuts % (Manual) Lymphocytes % (Manual) Seg Neutrophils # Seg Neutrophils # Man Lymphocytes # (Manual) APTT POC ABG pH ABG pH POC ABG pCO2 POC ABG pO2 ABG pO2 ABG HCO3 ABG Base Excess ABG Hemoglobin VBG pH Oxyhemoglobin Sodium Potassium Chloride Carbon Dioxide BUN Creatinine Glucose POC Glucose 129 H 169 H 187 H Lactic Acid Calcium AST ALT Alkaline Phosphatase CK-MB (CK-2) CK-MB (CK-2) Rel Index Total Protein Albumin TSH Urine WBC (Auto) Salicylates 01/24/17 01/24/17 01/25/17 17:43 23:23 04:56 WBC RBC Hgb Hct MCV MCH RDW Plt Count Lymph % (Auto) [place] % (Auto) Eos % (Auto) Seg Neutrophils % Seg Neuts % (Manual) Lymphocytes % (Manual) Seg Neutrophils # Seg Neutrophils # Man Lymphocytes # (Manual) APTT POC ABG pH ABG pH POC ABG pCO2 POC ABG pO2 ABG pO2 ABG HCO3 ABG Base Excess ABG Hemoglobin VBG pH Oxyhemoglobin Sodium Potassium Chloride Carbon Dioxide BUN Creatinine Glucose POC Glucose 215 H 222 H 210 H Lactic Acid Calcium AST ALT Alkaline Phosphatase CK-MB (CK-2) CK-MB (CK-2) Rel Index Total Protein Albumin TSH Urine WBC (Auto) Salicylates 01/25/17 01/25/17 01/26/17 11:52 17:37 00:02 WBC RBC Hgb Hct MCV MCH RDW Plt Count Lymph % (Auto) [place] % (Auto) Eos % (Auto) Seg Neutrophils % Seg Neuts % (Manual) Lymphocytes % (Manual) Seg Neutrophils # Seg Neutrophils # Man Lymphocytes # (Manual) APTT POC ABG pH ABG pH POC ABG pCO2 POC ABG pO2 ABG pO2 ABG HCO3 ABG Base Excess ABG Hemoglobin VBG pH Oxyhemoglobin Sodium Potassium Chloride Carbon Dioxide BUN Creatinine Glucose POC Glucose 284 H 218 H 192 H Lactic Acid Calcium AST ALT Alkaline Phosphatase CK-MB (CK-2) CK-MB (CK-2) Rel Index Total Protein Albumin TSH Urine WBC (Auto) Salicylates 01/26/17 01/26/17 01/26/17 05:33 12:17 17:50 WBC RBC Hgb Hct MCV MCH RDW Plt Count Lymph % (Auto) [place] % (Auto) Eos % (Auto) Seg Neutrophils % Seg Neuts % (Manual) Lymphocytes % (Manual) Seg Neutrophils # Seg Neutrophils # Man Lymphocytes # (Manual) APTT POC ABG pH ABG pH POC ABG pCO2 POC ABG pO2 ABG pO2 ABG HCO3 ABG Base Excess ABG Hemoglobin VBG pH Oxyhemoglobin Sodium Potassium Chloride Carbon Dioxide BUN Creatinine Glucose POC Glucose 199 H 227 H 229 H Lactic Acid Calcium AST ALT Alkaline Phosphatase CK-MB (CK-2) CK-MB (CK-2) Rel Index Total Protein Albumin TSH Urine WBC (Auto) Salicylates 01/26/17 01/27/17 01/27/17 23:57 05:31 11:42 WBC RBC Hgb Hct MCV MCH RDW Plt Count Lymph % (Auto) [place] % (Auto) Eos % (Auto) Seg Neutrophils % Seg Neuts % (Manual) Lymphocytes % (Manual) Seg Neutrophils # Seg Neutrophils # Man Lymphocytes # (Manual) APTT POC ABG pH ABG pH POC ABG pCO2 POC ABG pO2 ABG pO2 ABG HCO3 ABG Base Excess ABG Hemoglobin VBG pH Oxyhemoglobin Sodium Potassium Chloride Carbon Dioxide BUN Creatinine Glucose POC Glucose 186 H 285 H 260 H Lactic Acid Calcium AST ALT Alkaline Phosphatase CK-MB (CK-2) CK-MB (CK-2) Rel Index Total Protein Albumin TSH Urine WBC (Auto) Salicylates 01/27/17 01/27/17 01/27/17 17:47 23:58 Unknown WBC 12.1 H RBC 3.28 L Hgb 8.5 L Hct 25.5 L MCV 78 L MCH 26 L RDW 16.8 H Plt Count 601 H Lymph % (Auto) [place] % (Auto) Eos % (Auto) Seg Neutrophils % Seg Neuts % (Manual) Lymphocytes % (Manual) Seg Neutrophils # Seg Neutrophils # Man Lymphocytes # (Manual) APTT POC ABG pH ABG pH POC ABG pCO2 POC ABG pO2 ABG pO2 ABG HCO3 ABG Base Excess ABG Hemoglobin VBG pH Oxyhemoglobin Sodium Potassium Chloride Carbon Dioxide BUN Creatinine Glucose POC Glucose 329 H 225 H Lactic Acid Calcium AST ALT Alkaline Phosphatase CK-MB (CK-2) CK-MB (CK-2) Rel Index Total Protein Albumin TSH Urine WBC (Auto) Salicylates 01/27/17 01/28/17 01/28/17 Unknown 03:44 03:44 WBC RBC 3.14 L Hgb 8.2 L Hct 24.1 L MCV 77 L MCH 26 L RDW 16.9 H Plt Count 567 H Lymph % (Auto) [place] % (Auto) Eos % (Auto) Seg Neutrophils % Seg Neuts % (Manual) Lymphocytes % (Manual) Seg Neutrophils # Seg Neutrophils # Man Lymphocytes # (Manual) APTT POC ABG pH ABG pH POC ABG pCO2 POC ABG pO2 ABG pO2 ABG HCO3 ABG Base Excess ABG Hemoglobin VBG pH Oxyhemoglobin Sodium 128 L Potassium 5.4 H Chloride 87.5 L Carbon Dioxide BUN 44 H 42 H Creatinine Glucose 250 H 128 H POC Glucose Lactic Acid Calcium AST ALT Alkaline Phosphatase CK-MB (CK-2) CK-MB (CK-2) Rel Index Total Protein Albumin TSH Urine WBC (Auto) Salicylates 01/28/17 01/28/17 01/28/17 11:43 16:47 17:52 WBC RBC Hgb Hct MCV MCH RDW Plt Count Lymph % (Auto) [place] % (Auto) Eos % (Auto) Seg Neutrophils % Seg Neuts % (Manual) Lymphocytes % (Manual) Seg Neutrophils # Seg Neutrophils # Man Lymphocytes # (Manual) APTT POC ABG pH ABG pH POC ABG pCO2 POC ABG pO2 ABG pO2 ABG HCO3 ABG Base Excess ABG Hemoglobin VBG pH Oxyhemoglobin Sodium Potassium Chloride Carbon Dioxide BUN Creatinine Glucose POC Glucose 351 H 249 H Lactic Acid Calcium AST ALT Alkaline Phosphatase CK-MB (CK-2) CK-MB (CK-2) Rel Index Total Protein Albumin TSH Urine WBC (Auto) > 182.0 H Salicylates 01/29/17 01/29/17 01/29/17 05:25 05:25 09:32 WBC 13.6 H RBC 3.25 L Hgb 8.3 L Hct 25.1 L MCV 77 L MCH 26 L RDW 16.8 H Plt Count 514 H Lymph % (Auto) [place] % (Auto) Eos % (Auto) Seg Neutrophils % Seg Neuts % (Manual) Lymphocytes % (Manual) Seg Neutrophils # Seg Neutrophils # Man Lymphocytes # (Manual) APTT POC ABG pH ABG pH POC ABG pCO2 POC ABG pO2 ABG pO2 ABG HCO3 ABG Base Excess ABG Hemoglobin VBG pH Oxyhemoglobin Sodium Potassium Chloride 97.8 L Carbon Dioxide BUN 34 H Creatinine Glucose 222 H POC Glucose Lactic Acid 2.50 H* Calcium AST ALT Alkaline Phosphatase CK-MB (CK-2) CK-MB (CK-2) Rel Index Total Protein Albumin TSH Urine WBC (Auto) Salicylates 01/29/17 01/29/17 01/29/17 11:56 18:11 23:55 WBC RBC Hgb Hct MCV MCH RDW Plt Count Lymph % (Auto) [place] % (Auto) Eos % (Auto) Seg Neutrophils % Seg Neuts % (Manual) Lymphocytes % (Manual) Seg Neutrophils # Seg Neutrophils # Man Lymphocytes # (Manual) APTT POC ABG pH ABG pH POC ABG pCO2 POC ABG pO2 ABG pO2 ABG HCO3 ABG Base Excess ABG Hemoglobin VBG pH Oxyhemoglobin Sodium Potassium Chloride Carbon Dioxide BUN Creatinine Glucose POC Glucose 261 H 215 H 176 H Lactic Acid Calcium AST ALT Alkaline Phosphatase CK-MB (CK-2) CK-MB (CK-2) Rel Index Total Protein Albumin TSH Urine WBC (Auto) Salicylates 01/30/17 01/30/17 01/30/17 05:31 05:31 05:34 WBC 15.2 H RBC 3.09 L Hgb 7.9 L Hct 23.9 L MCV 77 L MCH 26 L RDW 16.9 H Plt Count 569 H Lymph % (Auto) [place] % (Auto) Eos % (Auto) Seg Neutrophils % Seg Neuts % (Manual) Lymphocytes % (Manual) Seg Neutrophils # Seg Neutrophils # Man Lymphocytes # (Manual) APTT POC ABG pH ABG pH POC ABG pCO2 POC ABG pO2 ABG pO2 ABG HCO3 ABG Base Excess ABG Hemoglobin VBG pH Oxyhemoglobin Sodium Potassium Chloride Carbon Dioxide BUN 24 H Creatinine Glucose 235 H POC Glucose 243 H Lactic Acid Calcium AST ALT Alkaline Phosphatase CK-MB (CK-2) CK-MB (CK-2) Rel Index Total Protein Albumin TSH Urine WBC (Auto) Salicylates 01/30/17 01/30/17 01/30/17 11:38 17:58 23:29 WBC RBC Hgb Hct MCV MCH RDW Plt Count Lymph % (Auto) [place] % (Auto) Eos % (Auto) Seg Neutrophils % Seg Neuts % (Manual) Lymphocytes % (Manual) Seg Neutrophils # Seg Neutrophils # Man Lymphocytes # (Manual) APTT POC ABG pH ABG pH POC ABG pCO2 POC ABG pO2 ABG pO2 ABG HCO3 ABG Base Excess ABG Hemoglobin VBG pH Oxyhemoglobin Sodium Potassium Chloride Carbon Dioxide BUN Creatinine Glucose POC Glucose 298 H 208 H 245 H Lactic Acid Calcium AST ALT Alkaline Phosphatase CK-MB (CK-2) CK-MB (CK-2) Rel Index Total Protein Albumin TSH Urine WBC (Auto) Salicylates 01/31/17 01/31/17 01/31/17 04:39 04:39 05:57 WBC 11.4 H RBC 3.22 L Hgb 8.2 L Hct 24.9 L MCV 78 L MCH 25 L RDW 17.2 H Plt Count 576 H Lymph % (Auto) [place] % (Auto) Eos % (Auto) Seg Neutrophils % Seg Neuts % (Manual) Lymphocytes % (Manual) Seg Neutrophils # Seg Neutrophils # Man Lymphocytes # (Manual) APTT POC ABG pH ABG pH POC ABG pCO2 POC ABG pO2 ABG pO2 ABG HCO3 ABG Base Excess ABG Hemoglobin VBG pH Oxyhemoglobin Sodium Potassium Chloride Carbon Dioxide BUN Creatinine 0.7 L Glucose 223 H POC Glucose 264 H Lactic Acid Calcium AST ALT Alkaline Phosphatase CK-MB (CK-2) CK-MB (CK-2) Rel Index Total Protein Albumin TSH Urine WBC (Auto) Salicylates 01/31/17 01/31/17 01/31/17 12:23 17:41 18:55 WBC RBC Hgb Hct MCV MCH RDW Plt Count Lymph % (Auto) [place] % (Auto) Eos % (Auto) Seg Neutrophils % Seg Neuts % (Manual) Lymphocytes % (Manual) Seg Neutrophils # Seg Neutrophils # Man Lymphocytes # (Manual) APTT POC ABG pH ABG pH POC ABG pCO2 32.8 L POC ABG pO2 ABG pO2 ABG HCO3 ABG Base Excess ABG Hemoglobin VBG pH Oxyhemoglobin Sodium Potassium Chloride Carbon Dioxide BUN Creatinine Glucose POC Glucose 252 H 208 H Lactic Acid Calcium AST ALT Alkaline Phosphatase CK-MB (CK-2) CK-MB (CK-2) Rel Index Total Protein Albumin TSH Urine WBC (Auto) Salicylates 01/31/17 02/01/17 02/01/17 22:59 03:38 03:38 WBC RBC 2.81 L Hgb 7.4 L Hct 22.1 L MCV 79 L MCH 27 L RDW 17.0 H Plt Count 540 H Lymph % (Auto) [place] % (Auto) Eos % (Auto) Seg Neutrophils % Seg Neuts % (Manual) Lymphocytes % (Manual) Seg Neutrophils # Seg Neutrophils # Man Lymphocytes # (Manual) APTT POC ABG pH ABG pH POC ABG pCO2 POC ABG pO2 ABG pO2 ABG HCO3 ABG Base Excess ABG Hemoglobin VBG pH Oxyhemoglobin Sodium Potassium Chloride Carbon Dioxide 21 L BUN Creatinine 0.7 L Glucose POC Glucose 40 L Lactic Acid Calcium AST ALT Alkaline Phosphatase CK-MB (CK-2) CK-MB (CK-2) Rel Index Total Protein Albumin TSH Urine WBC (Auto) Salicylates 02/01/17 02/01/17 02/01/17 05:17 12:19 16:44 WBC RBC Hgb Hct MCV MCH RDW Plt Count Lymph % (Auto) [place] % (Auto) Eos % (Auto) Seg Neutrophils % Seg Neuts % (Manual) Lymphocytes % (Manual) Seg Neutrophils # Seg Neutrophils # Man Lymphocytes # (Manual) APTT POC ABG pH ABG pH POC ABG pCO2 POC ABG pO2 ABG pO2 ABG HCO3 ABG Base Excess ABG Hemoglobin VBG pH Oxyhemoglobin Sodium Potassium Chloride Carbon Dioxide BUN Creatinine Glucose POC Glucose 140 H 213 H 172 H Lactic Acid Calcium AST ALT Alkaline Phosphatase CK-MB (CK-2) CK-MB (CK-2) Rel Index Total Protein Albumin TSH Urine WBC (Auto) Salicylates 02/01/17 02/02/17 02/02/17 23:59 05:14 11:24 WBC RBC Hgb Hct MCV MCH RDW Plt Count Lymph % (Auto) [place] % (Auto) Eos % (Auto) Seg Neutrophils % Seg Neuts % (Manual) Lymphocytes % (Manual) Seg Neutrophils # Seg Neutrophils # Man Lymphocytes # (Manual) APTT POC ABG pH ABG pH POC ABG pCO2 POC ABG pO2 ABG pO2 ABG HCO3 ABG Base Excess ABG Hemoglobin VBG pH Oxyhemoglobin Sodium Potassium Chloride Carbon Dioxide BUN Creatinine Glucose POC Glucose 181 H 194 H 209 H Lactic Acid Calcium AST ALT Alkaline Phosphatase CK-MB (CK-2) CK-MB (CK-2) Rel Index Total Protein Albumin TSH Urine WBC (Auto) Salicylates 02/02/17 02/02/17 02/02/17 11:46 11:46 17:47 WBC RBC 2.94 L Hgb 7.5 L Hct 23.0 L MCV 78 L MCH 25 L RDW 16.9 H Plt Count 520 H Lymph % (Auto) [place] % (Auto) Eos % (Auto) Seg Neutrophils % Seg Neuts % (Manual) Lymphocytes % (Manual) Seg Neutrophils # Seg Neutrophils # Man Lymphocytes # (Manual) APTT POC ABG pH ABG pH POC ABG pCO2 POC ABG pO2 ABG pO2 ABG HCO3 ABG Base Excess ABG Hemoglobin VBG pH Oxyhemoglobin Sodium Potassium Chloride Carbon Dioxide BUN Creatinine 0.6 L Glucose 189 H POC Glucose 147 H Lactic Acid Calcium 8.1 L AST ALT Alkaline Phosphatase CK-MB (CK-2) CK-MB (CK-2) Rel Index Total Protein Albumin TSH Urine WBC (Auto) Salicylates 02/02/17 02/03/17 02/03/17 23:32 05:53 11:19 WBC RBC Hgb Hct MCV MCH RDW Plt Count Lymph % (Auto) [place] % (Auto) Eos % (Auto) Seg Neutrophils % Seg Neuts % (Manual) Lymphocytes % (Manual) Seg Neutrophils # Seg Neutrophils # Man Lymphocytes # (Manual) APTT POC ABG pH ABG pH POC ABG pCO2 POC ABG pO2 ABG pO2 ABG HCO3 ABG Base Excess ABG Hemoglobin VBG pH Oxyhemoglobin Sodium Potassium Chloride Carbon Dioxide BUN Creatinine Glucose POC Glucose 176 H 224 H 228 H Lactic Acid Calcium AST ALT Alkaline Phosphatase CK-MB (CK-2) CK-MB (CK-2) Rel Index Total Protein Albumin TSH Urine WBC (Auto) Salicylates 02/03/17 02/03/17 02/04/17 16:59 23:38 05:45 WBC RBC Hgb Hct MCV MCH RDW Plt Count Lymph % (Auto) [place] % (Auto) Eos % (Auto) Seg Neutrophils % Seg Neuts % (Manual) Lymphocytes % (Manual) Seg Neutrophils # Seg Neutrophils # Man Lymphocytes # (Manual) APTT POC ABG pH ABG pH POC ABG pCO2 POC ABG pO2 ABG pO2 ABG HCO3 ABG Base Excess ABG Hemoglobin VBG pH Oxyhemoglobin Sodium Potassium Chloride Carbon Dioxide BUN Creatinine Glucose POC Glucose 189 H 191 H 251 H Lactic Acid Calcium AST ALT Alkaline Phosphatase CK-MB (CK-2) CK-MB (CK-2) Rel Index Total Protein Albumin TSH Urine WBC (Auto) Salicylates 02/04/17 02/04/17 02/05/17 11:20 17:20 00:17 WBC RBC Hgb Hct MCV MCH RDW Plt Count Lymph % (Auto) [place] % (Auto) Eos % (Auto) Seg Neutrophils % Seg Neuts % (Manual) Lymphocytes % (Manual) Seg Neutrophils # Seg Neutrophils # Man Lymphocytes # (Manual) APTT POC ABG pH ABG pH POC ABG pCO2 POC ABG pO2 ABG pO2 ABG HCO3 ABG Base Excess ABG Hemoglobin VBG pH Oxyhemoglobin Sodium Potassium Chloride Carbon Dioxide BUN Creatinine Glucose POC Glucose 243 H 163 H 200 H Lactic Acid Calcium AST ALT Alkaline Phosphatase CK-MB (CK-2) CK-MB (CK-2) Rel Index Total Protein Albumin TSH Urine WBC (Auto) Salicylates 02/05/17 02/05/17 02/05/17 05:38 12:38 16:29 WBC RBC Hgb Hct MCV MCH RDW Plt Count Lymph % (Auto) [place] % (Auto) Eos % (Auto) Seg Neutrophils % Seg Neuts % (Manual) Lymphocytes % (Manual) Seg Neutrophils # Seg Neutrophils # Man Lymphocytes # (Manual) APTT POC ABG pH ABG pH POC ABG pCO2 POC ABG pO2 ABG pO2 ABG HCO3 ABG Base Excess ABG Hemoglobin VBG pH Oxyhemoglobin Sodium Potassium Chloride Carbon Dioxide BUN Creatinine Glucose POC Glucose 248 H 241 H 257 H Lactic Acid Calcium AST ALT Alkaline Phosphatase CK-MB (CK-2) CK-MB (CK-2) Rel Index Total Protein Albumin TSH Urine WBC (Auto) Salicylates 02/05/17 02/06/17 02/06/17 23:56 05:30 11:50 WBC RBC Hgb Hct MCV MCH RDW Plt Count Lymph % (Auto) [place] % (Auto) Eos % (Auto) Seg Neutrophils % Seg Neuts % (Manual) Lymphocytes % (Manual) Seg Neutrophils # Seg Neutrophils # Man Lymphocytes # (Manual) APTT POC ABG pH ABG pH POC ABG pCO2 POC ABG pO2 ABG pO2 ABG HCO3 ABG Base Excess ABG Hemoglobin VBG pH Oxyhemoglobin Sodium Potassium Chloride Carbon Dioxide BUN Creatinine Glucose POC Glucose 258 H 120 H 254 H Lactic Acid Calcium AST ALT Alkaline Phosphatase CK-MB (CK-2) CK-MB (CK-2) Rel Index Total Protein Albumin TSH Urine WBC (Auto) Salicylates 02/06/17 02/06/17 02/07/17 17:11 23:50 05:22 WBC RBC Hgb Hct MCV MCH RDW Plt Count Lymph % (Auto) [place] % (Auto) Eos % (Auto) Seg Neutrophils % Seg Neuts % (Manual) Lymphocytes % (Manual) Seg Neutrophils # Seg Neutrophils # Man Lymphocytes # (Manual) APTT POC ABG pH ABG pH POC ABG pCO2 POC ABG pO2 ABG pO2 ABG HCO3 ABG Base Excess ABG Hemoglobin VBG pH Oxyhemoglobin Sodium Potassium Chloride Carbon Dioxide BUN Creatinine Glucose POC Glucose 149 H 240 H 258 H Lactic Acid Calcium AST ALT Alkaline Phosphatase CK-MB (CK-2) CK-MB (CK-2) Rel Index Total Protein Albumin TSH Urine WBC (Auto) Salicylates 02/07/17 02/07/17 02/07/17 11:15 18:33 23:59 WBC RBC Hgb Hct MCV MCH RDW Plt Count Lymph % (Auto) [place] % (Auto) Eos % (Auto) Seg Neutrophils % Seg Neuts % (Manual) Lymphocytes % (Manual) Seg Neutrophils # Seg Neutrophils # Man Lymphocytes # (Manual) APTT POC ABG pH ABG pH POC ABG pCO2 POC ABG pO2 ABG pO2 ABG HCO3 ABG Base Excess ABG Hemoglobin VBG pH Oxyhemoglobin Sodium Potassium Chloride Carbon Dioxide BUN Creatinine Glucose POC Glucose 239 H 176 H 186 H Lactic Acid Calcium AST ALT Alkaline Phosphatase CK-MB (CK-2) CK-MB (CK-2) Rel Index Total Protein Albumin TSH Urine WBC (Auto) Salicylates 02/08/17 02/08/17 02/08/17 06:15 11:55 16:55 WBC RBC Hgb Hct MCV MCH RDW Plt Count Lymph % (Auto) [place] % (Auto) Eos % (Auto) Seg Neutrophils % Seg Neuts % (Manual) Lymphocytes % (Manual) Seg Neutrophils # Seg Neutrophils # Man Lymphocytes # (Manual) APTT POC ABG pH ABG pH POC ABG pCO2 POC ABG pO2 ABG pO2 ABG HCO3 ABG Base Excess ABG Hemoglobin VBG pH Oxyhemoglobin Sodium Potassium Chloride Carbon Dioxide BUN Creatinine Glucose POC Glucose 195 H 129 H 246 H Lactic Acid Calcium AST ALT Alkaline Phosphatase CK-MB (CK-2) CK-MB (CK-2) Rel Index Total Protein Albumin TSH Urine WBC (Auto) Salicylates 02/08/17 02/09/17 02/09/17 23:51 05:51 07:24 WBC 14.7 H RBC 3.39 L Hgb 8.9 L Hct 26.4 L MCV 78 L MCH 26 L RDW 18.4 H Plt Count 670 H Lymph % (Auto) 11.8 L [place] % (Auto) Eos % (Auto) Seg Neutrophils % 81.2 H Seg Neuts % (Manual) Lymphocytes % (Manual) Seg Neutrophils # 11.9 H Seg Neutrophils # Man Lymphocytes # (Manual) APTT POC ABG pH ABG pH POC ABG pCO2 POC ABG pO2 ABG pO2 ABG HCO3 ABG Base Excess ABG Hemoglobin VBG pH Oxyhemoglobin Sodium Potassium Chloride Carbon Dioxide BUN Creatinine Glucose POC Glucose 262 H 295 H Lactic Acid Calcium AST ALT Alkaline Phosphatase CK-MB (CK-2) CK-MB (CK-2) Rel Index Total Protein Albumin TSH Urine WBC (Auto) Salicylates 02/09/17 02/09/17 02/09/17 07:24 12:08 18:39 WBC RBC Hgb Hct MCV MCH RDW Plt Count Lymph % (Auto) [place] % (Auto) Eos % (Auto) Seg Neutrophils % Seg Neuts % (Manual) Lymphocytes % (Manual) Seg Neutrophils # Seg Neutrophils # Man Lymphocytes # (Manual) APTT POC ABG pH ABG pH POC ABG pCO2 POC ABG pO2 ABG pO2 ABG HCO3 ABG Base Excess ABG Hemoglobin VBG pH Oxyhemoglobin Sodium Potassium Chloride 95.5 L Carbon Dioxide BUN 52 H Creatinine Glucose 277 H POC Glucose 236 H 151 H Lactic Acid Calcium AST ALT Alkaline Phosphatase CK-MB (CK-2) CK-MB (CK-2) Rel Index Total Protein Albumin TSH Urine WBC (Auto) Salicylates 02/10/17 02/10/17 02/10/17 00:01 05:44 11:21 WBC RBC Hgb Hct MCV MCH RDW Plt Count Lymph % (Auto) [place] % (Auto) Eos % (Auto) Seg Neutrophils % Seg Neuts % (Manual) Lymphocytes % (Manual) Seg Neutrophils # Seg Neutrophils # Man Lymphocytes # (Manual) APTT POC ABG pH ABG pH POC ABG pCO2 POC ABG pO2 ABG pO2 ABG HCO3 ABG Base Excess ABG Hemoglobin VBG pH Oxyhemoglobin Sodium Potassium Chloride Carbon Dioxide BUN Creatinine Glucose POC Glucose 210 H 201 H 233 H Lactic Acid Calcium AST ALT Alkaline Phosphatase CK-MB (CK-2) CK-MB (CK-2) Rel Index Total Protein Albumin TSH Urine WBC (Auto) Salicylates 02/10/17 02/10/17 02/11/17 17:29 23:56 05:24 WBC RBC Hgb Hct MCV MCH RDW Plt Count Lymph % (Auto) [place] % (Auto) Eos % (Auto) Seg Neutrophils % Seg Neuts % (Manual) Lymphocytes % (Manual) Seg Neutrophils # Seg Neutrophils # Man Lymphocytes # (Manual) APTT POC ABG pH ABG pH POC ABG pCO2 POC ABG pO2 ABG pO2 ABG HCO3 ABG Base Excess ABG Hemoglobin VBG pH Oxyhemoglobin Sodium Potassium Chloride Carbon Dioxide BUN Creatinine Glucose POC Glucose 167 H 191 H 135 H Lactic Acid Calcium AST ALT Alkaline Phosphatase CK-MB (CK-2) CK-MB (CK-2) Rel Index Total Protein Albumin TSH Urine WBC (Auto) Salicylates 02/11/17 02/11/17 02/11/17 12:25 17:03 23:59 WBC RBC Hgb Hct MCV MCH RDW Plt Count Lymph % (Auto) [place] % (Auto) Eos % (Auto) Seg Neutrophils % Seg Neuts % (Manual) Lymphocytes % (Manual) Seg Neutrophils # Seg Neutrophils # Man Lymphocytes # (Manual) APTT POC ABG pH ABG pH POC ABG pCO2 POC ABG pO2 ABG pO2 ABG HCO3 ABG Base Excess ABG Hemoglobin VBG pH Oxyhemoglobin Sodium Potassium Chloride Carbon Dioxide BUN Creatinine Glucose POC Glucose 275 H 172 H 215 H Lactic Acid Calcium AST ALT Alkaline Phosphatase CK-MB (CK-2) CK-MB (CK-2) Rel Index Total Protein Albumin TSH Urine WBC (Auto) Salicylates 02/12/17 02/12/17 02/12/17 05:39 11:33 17:55 WBC RBC Hgb Hct MCV MCH RDW Plt Count Lymph % (Auto) [place] % (Auto) Eos % (Auto) Seg Neutrophils % Seg Neuts % (Manual) Lymphocytes % (Manual) Seg Neutrophils # Seg Neutrophils # Man Lymphocytes # (Manual) APTT POC ABG pH ABG pH POC ABG pCO2 POC ABG pO2 ABG pO2 ABG HCO3 ABG Base Excess ABG Hemoglobin VBG pH Oxyhemoglobin Sodium Potassium Chloride Carbon Dioxide BUN Creatinine Glucose POC Glucose 261 H 217 H 172 H Lactic Acid Calcium AST ALT Alkaline Phosphatase CK-MB (CK-2) CK-MB (CK-2) Rel Index Total Protein Albumin TSH Urine WBC (Auto) Salicylates 02/13/17 02/13/17 02/13/17 00:25 06:46 11:26 WBC RBC Hgb Hct MCV MCH RDW Plt Count Lymph % (Auto) [place] % (Auto) Eos % (Auto) Seg Neutrophils % Seg Neuts % (Manual) Lymphocytes % (Manual) Seg Neutrophils # Seg Neutrophils # Man Lymphocytes # (Manual) APTT POC ABG pH ABG pH POC ABG pCO2 POC ABG pO2 ABG pO2 ABG HCO3 ABG Base Excess ABG Hemoglobin VBG pH Oxyhemoglobin Sodium Potassium Chloride Carbon Dioxide BUN Creatinine Glucose POC Glucose 207 H 219 H 231 H Lactic Acid Calcium AST ALT Alkaline Phosphatase CK-MB (CK-2) CK-MB (CK-2) Rel Index Total Protein Albumin TSH Urine WBC (Auto) Salicylates 02/13/17 02/13/17 02/14/17 17:12 23:44 05:44 WBC RBC Hgb Hct MCV MCH RDW Plt Count Lymph % (Auto) [place] % (Auto) Eos % (Auto) Seg Neutrophils % Seg Neuts % (Manual) Lymphocytes % (Manual) Seg Neutrophils # Seg Neutrophils # Man Lymphocytes # (Manual) APTT POC ABG pH ABG pH POC ABG pCO2 POC ABG pO2 ABG pO2 ABG HCO3 ABG Base Excess ABG Hemoglobin VBG pH Oxyhemoglobin Sodium Potassium Chloride Carbon Dioxide BUN Creatinine Glucose POC Glucose 190 H 256 H 184 H Lactic Acid Calcium AST ALT Alkaline Phosphatase CK-MB (CK-2) CK-MB (CK-2) Rel Index Total Protein Albumin TSH Urine WBC (Auto) Salicylates 02/14/17 02/14/17 02/14/17 12:21 17:57 23:18 WBC RBC Hgb Hct MCV MCH RDW Plt Count Lymph % (Auto) [place] % (Auto) Eos % (Auto) Seg Neutrophils % Seg Neuts % (Manual) Lymphocytes % (Manual) Seg Neutrophils # Seg Neutrophils # Man Lymphocytes # (Manual) APTT POC ABG pH ABG pH POC ABG pCO2 POC ABG pO2 ABG pO2 ABG HCO3 ABG Base Excess ABG Hemoglobin VBG pH Oxyhemoglobin Sodium Potassium Chloride Carbon Dioxide BUN Creatinine Glucose POC Glucose 233 H 155 H 165 H Lactic Acid Calcium AST ALT Alkaline Phosphatase CK-MB (CK-2) CK-MB (CK-2) Rel Index Total Protein Albumin TSH Urine WBC (Auto) Salicylates 02/15/17 02/15/17 02/15/17 05:33 11:45 17:20 WBC RBC Hgb Hct MCV MCH RDW Plt Count Lymph % (Auto) [place] % (Auto) Eos % (Auto) Seg Neutrophils % Seg Neuts % (Manual) Lymphocytes % (Manual) Seg Neutrophils # Seg Neutrophils # Man Lymphocytes # (Manual) APTT POC ABG pH ABG pH POC ABG pCO2 POC ABG pO2 ABG pO2 ABG HCO3 ABG Base Excess ABG Hemoglobin VBG pH Oxyhemoglobin Sodium Potassium Chloride Carbon Dioxide BUN Creatinine Glucose POC Glucose 239 H 130 H 189 H Lactic Acid Calcium AST ALT Alkaline Phosphatase CK-MB (CK-2) CK-MB (CK-2) Rel Index Total Protein Albumin TSH Urine WBC (Auto) Salicylates 02/16/17 02/16/17 02/16/17 00:14 05:09 12:31 WBC RBC Hgb Hct MCV MCH RDW Plt Count Lymph % (Auto) [place] % (Auto) Eos % (Auto) Seg Neutrophils % Seg Neuts % (Manual) Lymphocytes % (Manual) Seg Neutrophils # Seg Neutrophils # Man Lymphocytes # (Manual) APTT POC ABG pH ABG pH POC ABG pCO2 POC ABG pO2 ABG pO2 ABG HCO3 ABG Base Excess ABG Hemoglobin VBG pH Oxyhemoglobin Sodium Potassium Chloride Carbon Dioxide BUN Creatinine Glucose POC Glucose 197 H 226 H 178 H Lactic Acid Calcium AST ALT Alkaline Phosphatase CK-MB (CK-2) CK-MB (CK-2) Rel Index Total Protein Albumin TSH Urine WBC (Auto) Salicylates 02/16/17 02/16/17 02/17/17 16:35 23:49 05:37 WBC RBC Hgb Hct MCV MCH RDW Plt Count Lymph % (Auto) [place] % (Auto) Eos % (Auto) Seg Neutrophils % Seg Neuts % (Manual) Lymphocytes % (Manual) Seg Neutrophils # Seg Neutrophils # Man Lymphocytes # (Manual) APTT POC ABG pH ABG pH POC ABG pCO2 POC ABG pO2 ABG pO2 ABG HCO3 ABG Base Excess ABG Hemoglobin VBG pH Oxyhemoglobin Sodium Potassium Chloride Carbon Dioxide BUN Creatinine Glucose POC Glucose 174 H 62 L 153 H Lactic Acid Calcium AST ALT Alkaline Phosphatase CK-MB (CK-2) CK-MB (CK-2) Rel Index Total Protein Albumin TSH Urine WBC (Auto) Salicylates 02/17/17 02/17/17 02/17/17 11:39 17:02 22:24 WBC RBC Hgb Hct MCV MCH RDW Plt Count Lymph % (Auto) [place] % (Auto) Eos % (Auto) Seg Neutrophils % Seg Neuts % (Manual) Lymphocytes % (Manual) Seg Neutrophils # Seg Neutrophils # Man Lymphocytes # (Manual) APTT POC ABG pH ABG pH POC ABG pCO2 POC ABG pO2 ABG pO2 ABG HCO3 ABG Base Excess ABG Hemoglobin VBG pH Oxyhemoglobin Sodium Potassium Chloride Carbon Dioxide BUN Creatinine Glucose POC Glucose 231 H 112 H 116 H Lactic Acid Calcium AST ALT Alkaline Phosphatase CK-MB (CK-2) CK-MB (CK-2) Rel Index Total Protein Albumin TSH Urine WBC (Auto) Salicylates 02/18/17 02/19/17 02/19/17 15:34 05:09 07:57 WBC RBC Hgb Hct MCV MCH RDW Plt Count Lymph % (Auto) [place] % (Auto) Eos % (Auto) Seg Neutrophils % Seg Neuts % (Manual) Lymphocytes % (Manual) Seg Neutrophils # Seg Neutrophils # Man Lymphocytes # (Manual) APTT POC ABG pH ABG pH POC ABG pCO2 POC ABG pO2 ABG pO2 ABG HCO3 ABG Base Excess ABG Hemoglobin VBG pH Oxyhemoglobin Sodium Potassium Chloride Carbon Dioxide BUN Creatinine Glucose POC Glucose 215 H 218 H 283 H Lactic Acid Calcium AST ALT Alkaline Phosphatase CK-MB (CK-2) CK-MB (CK-2) Rel Index Total Protein Albumin TSH Urine WBC (Auto) Salicylates 02/19/17 02/19/17 02/20/17 14:49 22:10 05:10 WBC RBC Hgb Hct MCV MCH RDW Plt Count Lymph % (Auto) [place] % (Auto) Eos % (Auto) Seg Neutrophils % Seg Neuts % (Manual) Lymphocytes % (Manual) Seg Neutrophils # Seg Neutrophils # Man Lymphocytes # (Manual) APTT POC ABG pH ABG pH POC ABG pCO2 POC ABG pO2 ABG pO2 ABG HCO3 ABG Base Excess ABG Hemoglobin VBG pH Oxyhemoglobin Sodium Potassium Chloride Carbon Dioxide BUN Creatinine Glucose POC Glucose 290 H 169 H 209 H Lactic Acid Calcium AST ALT Alkaline Phosphatase CK-MB (CK-2) CK-MB (CK-2) Rel Index Total Protein Albumin TSH Urine WBC (Auto) Salicylates 02/20/17 02/20/17 02/21/17 15:05 21:52 02:00 WBC RBC Hgb Hct MCV MCH RDW Plt Count Lymph % (Auto) [place] % (Auto) Eos % (Auto) Seg Neutrophils % Seg Neuts % (Manual) Lymphocytes % (Manual) Seg Neutrophils # Seg Neutrophils # Man Lymphocytes # (Manual) APTT POC ABG pH ABG pH POC ABG pCO2 POC ABG pO2 ABG pO2 ABG HCO3 ABG Base Excess ABG Hemoglobin VBG pH Oxyhemoglobin Sodium Potassium Chloride Carbon Dioxide BUN Creatinine Glucose POC Glucose 172 H 209 H 216 H Lactic Acid Calcium AST ALT Alkaline Phosphatase CK-MB (CK-2) CK-MB (CK-2) Rel Index Total Protein Albumin TSH Urine WBC (Auto) Salicylates 02/21/17 02/21/17 02/21/17 04:54 14:43 17:47 WBC RBC Hgb Hct MCV MCH RDW Plt Count Lymph % (Auto) [place] % (Auto) Eos % (Auto) Seg Neutrophils % Seg Neuts % (Manual) Lymphocytes % (Manual) Seg Neutrophils # Seg Neutrophils # Man Lymphocytes # (Manual) APTT POC ABG pH ABG pH POC ABG pCO2 POC ABG pO2 ABG pO2 ABG HCO3 ABG Base Excess ABG Hemoglobin VBG pH Oxyhemoglobin Sodium Potassium Chloride Carbon Dioxide BUN Creatinine Glucose POC Glucose 227 H 290 H 220 H Lactic Acid Calcium AST ALT Alkaline Phosphatase CK-MB (CK-2) CK-MB (CK-2) Rel Index Total Protein Albumin TSH Urine WBC (Auto) Salicylates 02/21/17 02/22/17 02/22/17 22:02 04:52 15:25 WBC RBC Hgb Hct MCV MCH RDW Plt Count Lymph % (Auto) [place] % (Auto) Eos % (Auto) Seg Neutrophils % Seg Neuts % (Manual) Lymphocytes % (Manual) Seg Neutrophils # Seg Neutrophils # Man Lymphocytes # (Manual) APTT POC ABG pH ABG pH POC ABG pCO2 POC ABG pO2 ABG pO2 ABG HCO3 ABG Base Excess ABG Hemoglobin VBG pH Oxyhemoglobin Sodium Potassium Chloride Carbon Dioxide BUN Creatinine Glucose POC Glucose 246 H 212 H 236 H Lactic Acid Calcium AST ALT Alkaline Phosphatase CK-MB (CK-2) CK-MB (CK-2) Rel Index Total Protein Albumin TSH Urine WBC (Auto) Salicylates 02/22/17 02/23/17 02/23/17 21:33 06:04 10:00 WBC RBC Hgb Hct MCV MCH RDW Plt Count Lymph % (Auto) [place] % (Auto) Eos % (Auto) Seg Neutrophils % Seg Neuts % (Manual) Lymphocytes % (Manual) Seg Neutrophils # Seg Neutrophils # Man Lymphocytes # (Manual) APTT POC ABG pH ABG pH POC ABG pCO2 POC ABG pO2 ABG pO2 ABG HCO3 ABG Base Excess ABG Hemoglobin VBG pH Oxyhemoglobin Sodium Potassium Chloride Carbon Dioxide BUN Creatinine Glucose POC Glucose 255 H 208 H 174 H Lactic Acid Calcium AST ALT Alkaline Phosphatase CK-MB (CK-2) CK-MB (CK-2) Rel Index Total Protein Albumin TSH Urine WBC (Auto) Salicylates 02/23/17 02/23/17 02/23/17 12:52 17:15 21:51 WBC RBC Hgb Hct MCV MCH RDW Plt Count Lymph % (Auto) [place] % (Auto) Eos % (Auto) Seg Neutrophils % Seg Neuts % (Manual) Lymphocytes % (Manual) Seg Neutrophils # Seg Neutrophils # Man Lymphocytes # (Manual) APTT POC ABG pH ABG pH POC ABG pCO2 POC ABG pO2 ABG pO2 ABG HCO3 ABG Base Excess ABG Hemoglobin VBG pH Oxyhemoglobin Sodium Potassium Chloride Carbon Dioxide BUN Creatinine Glucose POC Glucose 203 H 269 H 205 H Lactic Acid Calcium AST ALT Alkaline Phosphatase CK-MB (CK-2) CK-MB (CK-2) Rel Index Total Protein Albumin TSH Urine WBC (Auto) Salicylates 02/24/17 02/24/17 02/24/17 10:23 17:45 21:24 WBC RBC Hgb Hct MCV MCH RDW Plt Count Lymph % (Auto) [place] % (Auto) Eos % (Auto) Seg Neutrophils % Seg Neuts % (Manual) Lymphocytes % (Manual) Seg Neutrophils # Seg Neutrophils # Man Lymphocytes # (Manual) APTT POC ABG pH ABG pH POC ABG pCO2 POC ABG pO2 ABG pO2 ABG HCO3 ABG Base Excess ABG Hemoglobin VBG pH Oxyhemoglobin Sodium Potassium Chloride Carbon Dioxide BUN Creatinine Glucose POC Glucose 280 H 239 H 254 H Lactic Acid Calcium AST ALT Alkaline Phosphatase CK-MB (CK-2) CK-MB (CK-2) Rel Index Total Protein Albumin TSH Urine WBC (Auto) Salicylates 02/25/17 02/25/17 02/25/17 02:12 05:17 14:32 WBC RBC Hgb Hct MCV MCH RDW Plt Count Lymph % (Auto) [place] % (Auto) Eos % (Auto) Seg Neutrophils % Seg Neuts % (Manual) Lymphocytes % (Manual) Seg Neutrophils # Seg Neutrophils # Man Lymphocytes # (Manual) APTT POC ABG pH ABG pH POC ABG pCO2 POC ABG pO2 ABG pO2 ABG HCO3 ABG Base Excess ABG Hemoglobin VBG pH Oxyhemoglobin Sodium Potassium Chloride Carbon Dioxide BUN Creatinine Glucose POC Glucose 296 H 332 H 353 H Lactic Acid Calcium AST ALT Alkaline Phosphatase CK-MB (CK-2) CK-MB (CK-2) Rel Index Total Protein Albumin TSH Urine WBC (Auto) Salicylates 02/25/17 02/26/17 02/26/17 22:14 00:37 05:52 WBC RBC Hgb Hct MCV MCH RDW Plt Count Lymph % (Auto) [place] % (Auto) Eos % (Auto) Seg Neutrophils % Seg Neuts % (Manual) Lymphocytes % (Manual) Seg Neutrophils # Seg Neutrophils # Man Lymphocytes # (Manual) APTT POC ABG pH ABG pH POC ABG pCO2 POC ABG pO2 ABG pO2 ABG HCO3 ABG Base Excess ABG Hemoglobin VBG pH Oxyhemoglobin Sodium Potassium Chloride Carbon Dioxide BUN Creatinine Glucose POC Glucose 201 H 233 H 269 H Lactic Acid Calcium AST ALT Alkaline Phosphatase CK-MB (CK-2) CK-MB (CK-2) Rel Index Total Protein Albumin TSH Urine WBC (Auto) Salicylates 02/26/17 02/26/17 02/26/17 11:48 13:49 21:26 WBC RBC Hgb Hct MCV MCH RDW Plt Count Lymph % (Auto) [place] % (Auto) Eos % (Auto) Seg Neutrophils % Seg Neuts % (Manual) Lymphocytes % (Manual) Seg Neutrophils # Seg Neutrophils # Man Lymphocytes # (Manual) APTT POC ABG pH ABG pH POC ABG pCO2 POC ABG pO2 ABG pO2 ABG HCO3 ABG Base Excess ABG Hemoglobin VBG pH Oxyhemoglobin Sodium Potassium Chloride Carbon Dioxide BUN Creatinine Glucose POC Glucose 333 H 322 H 244 H Lactic Acid Calcium AST ALT Alkaline Phosphatase CK-MB (CK-2) CK-MB (CK-2) Rel Index Total Protein Albumin TSH Urine WBC (Auto) Salicylates 02/27/17 02/27/17 02/27/17 05:27 13:51 21:48 WBC RBC Hgb Hct MCV MCH RDW Plt Count Lymph % (Auto) [place] % (Auto) Eos % (Auto) Seg Neutrophils % Seg Neuts % (Manual) Lymphocytes % (Manual) Seg Neutrophils # Seg Neutrophils # Man Lymphocytes # (Manual) APTT POC ABG pH ABG pH POC ABG pCO2 POC ABG pO2 ABG pO2 ABG HCO3 ABG Base Excess ABG Hemoglobin VBG pH Oxyhemoglobin Sodium Potassium Chloride Carbon Dioxide BUN Creatinine Glucose POC Glucose 217 H 239 H 254 H Lactic Acid Calcium AST ALT Alkaline Phosphatase CK-MB (CK-2) CK-MB (CK-2) Rel Index Total Protein Albumin TSH Urine WBC (Auto) Salicylates 02/28/17 02/28/17 02/28/17 05:38 11:00 19:44 WBC RBC Hgb Hct MCV MCH RDW Plt Count Lymph % (Auto) [place] % (Auto) Eos % (Auto) Seg Neutrophils % Seg Neuts % (Manual) Lymphocytes % (Manual) Seg Neutrophils # Seg Neutrophils # Man Lymphocytes # (Manual) APTT POC ABG pH ABG pH POC ABG pCO2 POC ABG pO2 ABG pO2 ABG HCO3 ABG Base Excess ABG Hemoglobin VBG pH Oxyhemoglobin Sodium Potassium Chloride Carbon Dioxide BUN Creatinine Glucose POC Glucose 325 H 203 H 116 H Lactic Acid Calcium AST ALT Alkaline Phosphatase CK-MB (CK-2) CK-MB (CK-2) Rel Index Total Protein Albumin TSH Urine WBC (Auto) Salicylates 03/01/17 03/01/17 03/01/17 00:08 05:31 12:17 WBC RBC Hgb Hct MCV MCH RDW Plt Count Lymph % (Auto) [place] % (Auto) Eos % (Auto) Seg Neutrophils % Seg Neuts % (Manual) Lymphocytes % (Manual) Seg Neutrophils # Seg Neutrophils # Man Lymphocytes # (Manual) APTT POC ABG pH ABG pH POC ABG pCO2 POC ABG pO2 ABG pO2 ABG HCO3 ABG Base Excess ABG Hemoglobin VBG pH Oxyhemoglobin Sodium Potassium Chloride Carbon Dioxide BUN Creatinine Glucose POC Glucose 202 H 183 H 184 H Lactic Acid Calcium AST ALT Alkaline Phosphatase CK-MB (CK-2) CK-MB (CK-2) Rel Index Total Protein Albumin TSH Urine WBC (Auto) Salicylates 03/02/17 03/02/17 03/02/17 00:12 05:58 18:22 WBC RBC Hgb Hct MCV MCH RDW Plt Count Lymph % (Auto) [place] % (Auto) Eos % (Auto) Seg Neutrophils % Seg Neuts % (Manual) Lymphocytes % (Manual) Seg Neutrophils # Seg Neutrophils # Man Lymphocytes # (Manual) APTT POC ABG pH ABG pH POC ABG pCO2 POC ABG pO2 ABG pO2 ABG HCO3 ABG Base Excess ABG Hemoglobin VBG pH Oxyhemoglobin Sodium Potassium Chloride Carbon Dioxide BUN Creatinine Glucose POC Glucose 117 H 176 H 156 H Lactic Acid Calcium AST ALT Alkaline Phosphatase CK-MB (CK-2) CK-MB (CK-2) Rel Index Total Protein Albumin TSH Urine WBC (Auto) Salicylates 03/02/17 03/03/17 03/03/17 23:51 05:44 11:32 WBC RBC Hgb Hct MCV MCH RDW Plt Count Lymph % (Auto) [place] % (Auto) Eos % (Auto) Seg Neutrophils % Seg Neuts % (Manual) Lymphocytes % (Manual) Seg Neutrophils # Seg Neutrophils # Man Lymphocytes # (Manual) APTT POC ABG pH ABG pH POC ABG pCO2 POC ABG pO2 ABG pO2 ABG HCO3 ABG Base Excess ABG Hemoglobin VBG pH Oxyhemoglobin Sodium Potassium Chloride Carbon Dioxide BUN Creatinine Glucose POC Glucose 211 H 117 H 133 H Lactic Acid Calcium AST ALT Alkaline Phosphatase CK-MB (CK-2) CK-MB (CK-2) Rel Index Total Protein Albumin TSH Urine WBC (Auto) Salicylates 03/03/17 03/03/17 03/04/17 17:43 23:17 05:30 WBC RBC Hgb Hct MCV MCH RDW Plt Count Lymph % (Auto) [place] % (Auto) Eos % (Auto) Seg Neutrophils % Seg Neuts % (Manual) Lymphocytes % (Manual) Seg Neutrophils # Seg Neutrophils # Man Lymphocytes # (Manual) APTT POC ABG pH ABG pH POC ABG pCO2 POC ABG pO2 ABG pO2 ABG HCO3 ABG Base Excess ABG Hemoglobin VBG pH Oxyhemoglobin Sodium Potassium Chloride Carbon Dioxide BUN Creatinine Glucose POC Glucose 206 H 170 H 126 H Lactic Acid Calcium AST ALT Alkaline Phosphatase CK-MB (CK-2) CK-MB (CK-2) Rel Index Total Protein Albumin TSH Urine WBC (Auto) Salicylates 03/04/17 03/04/17 03/05/17 12:17 17:27 05:20 WBC RBC Hgb Hct MCV MCH RDW Plt Count Lymph % (Auto) [place] % (Auto) Eos % (Auto) Seg Neutrophils % Seg Neuts % (Manual) Lymphocytes % (Manual) Seg Neutrophils # Seg Neutrophils # Man Lymphocytes # (Manual) APTT POC ABG pH ABG pH POC ABG pCO2 POC ABG pO2 ABG pO2 ABG HCO3 ABG Base Excess ABG Hemoglobin VBG pH Oxyhemoglobin Sodium Potassium Chloride Carbon Dioxide BUN Creatinine Glucose POC Glucose 135 H 121 H 185 H Lactic Acid Calcium AST ALT Alkaline Phosphatase CK-MB (CK-2) CK-MB (CK-2) Rel Index Total Protein Albumin TSH Urine WBC (Auto) Salicylates 03/05/17 03/06/17 03/06/17 11:50 11:52 17:34 WBC RBC Hgb Hct MCV MCH RDW Plt Count Lymph % (Auto) [place] % (Auto) Eos % (Auto) Seg Neutrophils % Seg Neuts % (Manual) Lymphocytes % (Manual) Seg Neutrophils # Seg Neutrophils # Man Lymphocytes # (Manual) APTT POC ABG pH ABG pH POC ABG pCO2 POC ABG pO2 ABG pO2 ABG HCO3 ABG Base Excess ABG Hemoglobin VBG pH Oxyhemoglobin Sodium Potassium Chloride Carbon Dioxide BUN Creatinine Glucose POC Glucose 116 H 133 H 181 H Lactic Acid Calcium AST ALT Alkaline Phosphatase CK-MB (CK-2) CK-MB (CK-2) Rel Index Total Protein Albumin TSH Urine WBC (Auto) Salicylates 03/07/17 03/07/17 03/07/17 05:21 11:36 17:49 WBC RBC Hgb Hct MCV MCH RDW Plt Count Lymph % (Auto) [place] % (Auto) Eos % (Auto) Seg Neutrophils % Seg Neuts % (Manual) Lymphocytes % (Manual) Seg Neutrophils # Seg Neutrophils # Man Lymphocytes # (Manual) APTT POC ABG pH ABG pH POC ABG pCO2 POC ABG pO2 ABG pO2 ABG HCO3 ABG Base Excess ABG Hemoglobin VBG pH Oxyhemoglobin Sodium Potassium Chloride Carbon Dioxide BUN Creatinine Glucose POC Glucose 159 H 137 H 158 H Lactic Acid Calcium AST ALT Alkaline Phosphatase CK-MB (CK-2) CK-MB (CK-2) Rel Index Total Protein Albumin TSH Urine WBC (Auto) Salicylates 03/08/17 03/08/17 03/08/17 05:51 13:58 23:50 WBC RBC Hgb Hct MCV MCH RDW Plt Count Lymph % (Auto) [place] % (Auto) Eos % (Auto) Seg Neutrophils % Seg Neuts % (Manual) Lymphocytes % (Manual) Seg Neutrophils # Seg Neutrophils # Man Lymphocytes # (Manual) APTT POC ABG pH ABG pH POC ABG pCO2 POC ABG pO2 ABG pO2 ABG HCO3 ABG Base Excess ABG Hemoglobin VBG pH Oxyhemoglobin Sodium Potassium Chloride Carbon Dioxide BUN Creatinine Glucose POC Glucose 122 H 182 H 114 H Lactic Acid Calcium AST ALT Alkaline Phosphatase CK-MB (CK-2) CK-MB (CK-2) Rel Index Total Protein Albumin TSH Urine WBC (Auto) Salicylates 03/09/17 03/09/17 03/09/17 05:21 05:51 05:51 WBC RBC 3.61 L Hgb 9.5 L Hct 28.3 L MCV 79 L MCH 26 L RDW 17.8 H Plt Count Lymph % (Auto) [place] % (Auto) Eos % (Auto) Seg Neutrophils % Seg Neuts % (Manual) Lymphocytes % (Manual) Seg Neutrophils # Seg Neutrophils # Man Lymphocytes # (Manual) APTT POC ABG pH ABG pH POC ABG pCO2 POC ABG pO2 ABG pO2 ABG HCO3 ABG Base Excess ABG Hemoglobin VBG pH Oxyhemoglobin Sodium 134 L Potassium Chloride 95.5 L Carbon Dioxide BUN 33 H Creatinine 0.5 L Glucose 143 H POC Glucose 153 H Lactic Acid Calcium AST ALT Alkaline Phosphatase CK-MB (CK-2) CK-MB (CK-2) Rel Index Total Protein Albumin TSH Urine WBC (Auto) Salicylates 03/09/17 03/09/17 03/09/17 12:10 18:13 21:00 WBC RBC Hgb Hct MCV MCH RDW Plt Count Lymph % (Auto) [place] % (Auto) Eos % (Auto) Seg Neutrophils % Seg Neuts % (Manual) Lymphocytes % (Manual) Seg Neutrophils # Seg Neutrophils # Man Lymphocytes # (Manual) APTT POC ABG pH ABG pH POC ABG pCO2 POC ABG pO2 ABG pO2 ABG HCO3 ABG Base Excess ABG Hemoglobin VBG pH Oxyhemoglobin Sodium Potassium Chloride Carbon Dioxide BUN Creatinine Glucose POC Glucose 203 H 221 H 198 H Lactic Acid Calcium AST ALT Alkaline Phosphatase CK-MB (CK-2) CK-MB (CK-2) Rel Index Total Protein Albumin TSH Urine WBC (Auto) Salicylates 03/09/17 03/10/17 03/10/17 23:58 05:09 05:09 WBC RBC Hgb 10.3 L Hct 30.5 L MCV 78 L MCH 26 L RDW 17.9 H Plt Count Lymph % (Auto) [place] % (Auto) 10.0 H Eos % (Auto) 6.0 H Seg Neutrophils % Seg Neuts % (Manual) Lymphocytes % (Manual) Seg Neutrophils # Seg Neutrophils # Man Lymphocytes # (Manual) APTT POC ABG pH ABG pH POC ABG pCO2 POC ABG pO2 ABG pO2 ABG HCO3 ABG Base Excess ABG Hemoglobin VBG pH Oxyhemoglobin Sodium 132 L Potassium Chloride 92.2 L Carbon Dioxide BUN 33 H Creatinine 0.5 L Glucose 50 L POC Glucose 167 H Lactic Acid Calcium AST ALT Alkaline Phosphatase CK-MB (CK-2) CK-MB (CK-2) Rel Index Total Protein Albumin TSH Urine WBC (Auto) Salicylates 03/10/17 03/10/17 03/10/17 05:33 05:34 11:48 WBC RBC Hgb Hct MCV MCH RDW Plt Count Lymph % (Auto) [place] % (Auto) Eos % (Auto) Seg Neutrophils % Seg Neuts % (Manual) Lymphocytes % (Manual) Seg Neutrophils # Seg Neutrophils # Man Lymphocytes # (Manual) APTT POC ABG pH ABG pH POC ABG pCO2 POC ABG pO2 ABG pO2 ABG HCO3 ABG Base Excess ABG Hemoglobin VBG pH Oxyhemoglobin Sodium Potassium Chloride Carbon Dioxide BUN Creatinine Glucose POC Glucose 52 L 53 L 148 H Lactic Acid Calcium AST ALT Alkaline Phosphatase CK-MB (CK-2) CK-MB (CK-2) Rel Index Total Protein Albumin TSH Urine WBC (Auto) Salicylates 03/10/17 03/10/17 03/11/17 17:53 23:47 05:18 WBC RBC Hgb Hct MCV MCH RDW Plt Count Lymph % (Auto) [place] % (Auto) Eos % (Auto) Seg Neutrophils % Seg Neuts % (Manual) Lymphocytes % (Manual) Seg Neutrophils # Seg Neutrophils # Man Lymphocytes # (Manual) APTT POC ABG pH ABG pH POC ABG pCO2 POC ABG pO2 ABG pO2 ABG HCO3 ABG Base Excess ABG Hemoglobin VBG pH Oxyhemoglobin Sodium Potassium Chloride Carbon Dioxide BUN Creatinine Glucose POC Glucose 189 H 398 H 126 H Lactic Acid Calcium AST ALT Alkaline Phosphatase CK-MB (CK-2) CK-MB (CK-2) Rel Index Total Protein Albumin TSH Urine WBC (Auto) Salicylates 03/11/17 03/11/17 03/11/17 11:53 17:30 23:10 WBC RBC Hgb Hct MCV MCH RDW Plt Count Lymph % (Auto) [place] % (Auto) Eos % (Auto) Seg Neutrophils % Seg Neuts % (Manual) Lymphocytes % (Manual) Seg Neutrophils # Seg Neutrophils # Man Lymphocytes # (Manual) APTT POC ABG pH ABG pH POC ABG pCO2 POC ABG pO2 ABG pO2 ABG HCO3 ABG Base Excess ABG Hemoglobin VBG pH Oxyhemoglobin Sodium Potassium Chloride Carbon Dioxide BUN Creatinine Glucose POC Glucose 198 H 142 H 244 H Lactic Acid Calcium AST ALT Alkaline Phosphatase CK-MB (CK-2) CK-MB (CK-2) Rel Index Total Protein Albumin TSH Urine WBC (Auto) Salicylates 03/12/17 03/12/17 03/12/17 04:36 11:49 17:23 WBC RBC Hgb Hct MCV MCH RDW Plt Count Lymph % (Auto) [place] % (Auto) Eos % (Auto) Seg Neutrophils % Seg Neuts % (Manual) Lymphocytes % (Manual) Seg Neutrophils # Seg Neutrophils # Man Lymphocytes # (Manual) APTT POC ABG pH ABG pH POC ABG pCO2 POC ABG pO2 ABG pO2 ABG HCO3 ABG Base Excess ABG Hemoglobin VBG pH Oxyhemoglobin Sodium Potassium Chloride Carbon Dioxide BUN Creatinine Glucose POC Glucose 205 H 197 H 209 H Lactic Acid Calcium AST ALT Alkaline Phosphatase CK-MB (CK-2) CK-MB (CK-2) Rel Index Total Protein Albumin TSH Urine WBC (Auto) Salicylates 03/12/17 03/13/17 03/13/17 23:51 05:32 11:43 WBC RBC Hgb Hct MCV MCH RDW Plt Count Lymph % (Auto) [place] % (Auto) Eos % (Auto) Seg Neutrophils % Seg Neuts % (Manual) Lymphocytes % (Manual) Seg Neutrophils # Seg Neutrophils # Man Lymphocytes # (Manual) APTT POC ABG pH ABG pH POC ABG pCO2 POC ABG pO2 ABG pO2 ABG HCO3 ABG Base Excess ABG Hemoglobin VBG pH Oxyhemoglobin Sodium Potassium Chloride Carbon Dioxide BUN Creatinine Glucose POC Glucose 210 H 154 H 164 H Lactic Acid Calcium AST ALT Alkaline Phosphatase CK-MB (CK-2) CK-MB (CK-2) Rel Index Total Protein Albumin TSH Urine WBC (Auto) Salicylates 03/13/17 03/13/17 03/14/17 17:11 23:26 05:42 WBC RBC Hgb Hct MCV MCH RDW Plt Count Lymph % (Auto) [place] % (Auto) Eos % (Auto) Seg Neutrophils % Seg Neuts % (Manual) Lymphocytes % (Manual) Seg Neutrophils # Seg Neutrophils # Man Lymphocytes # (Manual) APTT POC ABG pH ABG pH POC ABG pCO2 POC ABG pO2 ABG pO2 ABG HCO3 ABG Base Excess ABG Hemoglobin VBG pH Oxyhemoglobin Sodium Potassium Chloride Carbon Dioxide BUN Creatinine Glucose POC Glucose 195 H 240 H 230 H Lactic Acid Calcium AST ALT Alkaline Phosphatase CK-MB (CK-2) CK-MB (CK-2) Rel Index Total Protein Albumin TSH Urine WBC (Auto) Salicylates 03/14/17 03/14/17 03/14/17 14:04 17:34 23:42 WBC RBC Hgb Hct MCV MCH RDW Plt Count Lymph % (Auto) [place] % (Auto) Eos % (Auto) Seg Neutrophils % Seg Neuts % (Manual) Lymphocytes % (Manual) Seg Neutrophils # Seg Neutrophils # Man Lymphocytes # (Manual) APTT POC ABG pH ABG pH POC ABG pCO2 POC ABG pO2 ABG pO2 ABG HCO3 ABG Base Excess ABG Hemoglobin VBG pH Oxyhemoglobin Sodium Potassium Chloride Carbon Dioxide BUN Creatinine Glucose POC Glucose 227 H 186 H 225 H Lactic Acid Calcium AST ALT Alkaline Phosphatase CK-MB (CK-2) CK-MB (CK-2) Rel Index Total Protein Albumin TSH Urine WBC (Auto) Salicylates 03/15/17 03/15/17 03/15/17 05:21 17:13 21:37 WBC RBC Hgb Hct MCV MCH RDW Plt Count Lymph % (Auto) [place] % (Auto) Eos % (Auto) Seg Neutrophils % Seg Neuts % (Manual) Lymphocytes % (Manual) Seg Neutrophils # Seg Neutrophils # Man Lymphocytes # (Manual) APTT POC ABG pH ABG pH POC ABG pCO2 POC ABG pO2 ABG pO2 ABG HCO3 ABG Base Excess ABG Hemoglobin VBG pH Oxyhemoglobin Sodium Potassium Chloride Carbon Dioxide BUN Creatinine Glucose POC Glucose 244 H 203 H 216 H Lactic Acid Calcium AST ALT Alkaline Phosphatase CK-MB (CK-2) CK-MB (CK-2) Rel Index Total Protein Albumin TSH Urine WBC (Auto) Salicylates 03/16/17 03/16/17 03/16/17 05:52 18:07 21:54 WBC RBC Hgb Hct MCV MCH RDW Plt Count Lymph % (Auto) [place] % (Auto) Eos % (Auto) Seg Neutrophils % Seg Neuts % (Manual) Lymphocytes % (Manual) Seg Neutrophils # Seg Neutrophils # Man Lymphocytes # (Manual) APTT POC ABG pH ABG pH POC ABG pCO2 POC ABG pO2 ABG pO2 ABG HCO3 ABG Base Excess ABG Hemoglobin VBG pH Oxyhemoglobin Sodium Potassium Chloride Carbon Dioxide BUN Creatinine Glucose POC Glucose 248 H 254 H 244 H Lactic Acid Calcium AST ALT Alkaline Phosphatase CK-MB (CK-2) CK-MB (CK-2) Rel Index Total Protein Albumin TSH Urine WBC (Auto) Salicylates 03/17/17 03/17/17 03/17/17 07:07 07:42 07:43 WBC RBC Hgb 9.7 L Hct 29.1 L MCV 78 L MCH 26 L RDW 17.4 H Plt Count Lymph % (Auto) [place] % (Auto) Eos % (Auto) Seg Neutrophils % Seg Neuts % (Manual) Lymphocytes % (Manual) Seg Neutrophils # Seg Neutrophils # Man Lymphocytes # (Manual) APTT POC ABG pH ABG pH POC ABG pCO2 POC ABG pO2 ABG pO2 ABG HCO3 ABG Base Excess ABG Hemoglobin VBG pH Oxyhemoglobin Sodium Potassium Chloride 96.6 L Carbon Dioxide BUN 30 H Creatinine 0.5 L Glucose 251 H POC Glucose 222 H Lactic Acid Calcium AST ALT Alkaline Phosphatase CK-MB (CK-2) CK-MB (CK-2) Rel Index Total Protein Albumin TSH Urine WBC (Auto) Salicylates 03/17/17 03/17/17 03/18/17 14:08 21:20 14:24 WBC RBC Hgb Hct MCV MCH RDW Plt Count Lymph % (Auto) [place] % (Auto) Eos % (Auto) Seg Neutrophils % Seg Neuts % (Manual) Lymphocytes % (Manual) Seg Neutrophils # Seg Neutrophils # Man Lymphocytes # (Manual) APTT POC ABG pH ABG pH POC ABG pCO2 POC ABG pO2 ABG pO2 ABG HCO3 ABG Base Excess ABG Hemoglobin VBG pH Oxyhemoglobin Sodium Potassium Chloride Carbon Dioxide BUN Creatinine Glucose POC Glucose 281 H 239 H 195 H Lactic Acid Calcium AST ALT Alkaline Phosphatase CK-MB (CK-2) CK-MB (CK-2) Rel Index Total Protein Albumin TSH Urine WBC (Auto) Salicylates 03/18/17 03/19/17 03/19/17 21:37 04:57 14:23 WBC RBC Hgb Hct MCV MCH RDW Plt Count Lymph % (Auto) [place] % (Auto) Eos % (Auto) Seg Neutrophils % Seg Neuts % (Manual) Lymphocytes % (Manual) Seg Neutrophils # Seg Neutrophils # Man Lymphocytes # (Manual) APTT POC ABG pH ABG pH POC ABG pCO2 POC ABG pO2 ABG pO2 ABG HCO3 ABG Base Excess ABG Hemoglobin VBG pH Oxyhemoglobin Sodium Potassium Chloride Carbon Dioxide BUN Creatinine Glucose POC Glucose 227 H 205 H 277 H Lactic Acid Calcium AST ALT Alkaline Phosphatase CK-MB (CK-2) CK-MB (CK-2) Rel Index Total Protein Albumin TSH Urine WBC (Auto) Salicylates 03/19/17 03/19/17 03/20/17 20:31 21:47 04:55 WBC RBC Hgb Hct MCV MCH RDW Plt Count Lymph % (Auto) [place] % (Auto) Eos % (Auto) Seg Neutrophils % Seg Neuts % (Manual) Lymphocytes % (Manual) Seg Neutrophils # Seg Neutrophils # Man Lymphocytes # (Manual) APTT POC ABG pH ABG pH POC ABG pCO2 POC ABG pO2 ABG pO2 ABG HCO3 ABG Base Excess ABG Hemoglobin VBG pH Oxyhemoglobin Sodium Potassium Chloride Carbon Dioxide BUN Creatinine Glucose POC Glucose 256 H 270 H 202 H Lactic Acid Calcium AST ALT Alkaline Phosphatase CK-MB (CK-2) CK-MB (CK-2) Rel Index Total Protein Albumin TSH Urine WBC (Auto) Salicylates 03/20/17 03/20/17 03/21/17 14:09 21:40 05:09 WBC RBC Hgb Hct MCV MCH RDW Plt Count Lymph % (Auto) [place] % (Auto) Eos % (Auto) Seg Neutrophils % Seg Neuts % (Manual) Lymphocytes % (Manual) Seg Neutrophils # Seg Neutrophils # Man Lymphocytes # (Manual) APTT POC ABG pH ABG pH POC ABG pCO2 POC ABG pO2 ABG pO2 ABG HCO3 ABG Base Excess ABG Hemoglobin VBG pH Oxyhemoglobin Sodium Potassium Chloride Carbon Dioxide BUN Creatinine Glucose POC Glucose 200 H 214 H 233 H Lactic Acid Calcium AST ALT Alkaline Phosphatase CK-MB (CK-2) CK-MB (CK-2) Rel Index Total Protein Albumin TSH Urine WBC (Auto) Salicylates 03/21/17 03/21/17 03/22/17 14:06 21:26 05:43 WBC RBC Hgb Hct MCV MCH RDW Plt Count Lymph % (Auto) [place] % (Auto) Eos % (Auto) Seg Neutrophils % Seg Neuts % (Manual) Lymphocytes % (Manual) Seg Neutrophils # Seg Neutrophils # Man Lymphocytes # (Manual) APTT POC ABG pH ABG pH POC ABG pCO2 POC ABG pO2 ABG pO2 ABG HCO3 ABG Base Excess ABG Hemoglobin VBG pH Oxyhemoglobin Sodium Potassium Chloride Carbon Dioxide BUN Creatinine Glucose POC Glucose 250 H 155 H 251 H Lactic Acid Calcium AST ALT Alkaline Phosphatase CK-MB (CK-2) CK-MB (CK-2) Rel Index Total Protein Albumin TSH Urine WBC (Auto) Salicylates 03/22/17 03/22/17 03/23/17 13:46 21:16 00:23 WBC RBC Hgb Hct MCV MCH RDW Plt Count Lymph % (Auto) [place] % (Auto) Eos % (Auto) Seg Neutrophils % Seg Neuts % (Manual) Lymphocytes % (Manual) Seg Neutrophils # Seg Neutrophils # Man Lymphocytes # (Manual) APTT POC ABG pH ABG pH POC ABG pCO2 POC ABG pO2 ABG pO2 ABG HCO3 ABG Base Excess ABG Hemoglobin VBG pH Oxyhemoglobin Sodium Potassium Chloride Carbon Dioxide BUN Creatinine Glucose POC Glucose 269 H 197 H 126 H Lactic Acid Calcium AST ALT Alkaline Phosphatase CK-MB (CK-2) CK-MB (CK-2) Rel Index Total Protein Albumin TSH Urine WBC (Auto) Salicylates 03/23/17 03/23/17 03/23/17 05:39 14:06 21:39 WBC RBC Hgb Hct MCV MCH RDW Plt Count Lymph % (Auto) [place] % (Auto) Eos % (Auto) Seg Neutrophils % Seg Neuts % (Manual) Lymphocytes % (Manual) Seg Neutrophils # Seg Neutrophils # Man Lymphocytes # (Manual) APTT POC ABG pH ABG pH POC ABG pCO2 POC ABG pO2 ABG pO2 ABG HCO3 ABG Base Excess ABG Hemoglobin VBG pH Oxyhemoglobin Sodium Potassium Chloride Carbon Dioxide BUN Creatinine Glucose POC Glucose 234 H 241 H 248 H Lactic Acid Calcium AST ALT Alkaline Phosphatase CK-MB (CK-2) CK-MB (CK-2) Rel Index Total Protein Albumin TSH Urine WBC (Auto) Salicylates 03/24/17 03/24/17 03/25/17 05:06 21:46 05:38 WBC RBC Hgb Hct MCV MCH RDW Plt Count Lymph % (Auto) [place] % (Auto) Eos % (Auto) Seg Neutrophils % Seg Neuts % (Manual) Lymphocytes % (Manual) Seg Neutrophils # Seg Neutrophils # Man Lymphocytes # (Manual) APTT POC ABG pH ABG pH POC ABG pCO2 POC ABG pO2 ABG pO2 ABG HCO3 ABG Base Excess ABG Hemoglobin VBG pH Oxyhemoglobin Sodium Potassium Chloride Carbon Dioxide BUN Creatinine Glucose POC Glucose 232 H 276 H 242 H Lactic Acid Calcium AST ALT Alkaline Phosphatase CK-MB (CK-2) CK-MB (CK-2) Rel Index Total Protein Albumin TSH Urine WBC (Auto) Salicylates 03/25/17 03/25/17 03/26/17 14:30 23:14 13:53 WBC RBC Hgb Hct MCV MCH RDW Plt Count Lymph % (Auto) [place] % (Auto) Eos % (Auto) Seg Neutrophils % Seg Neuts % (Manual) Lymphocytes % (Manual) Seg Neutrophils # Seg Neutrophils # Man Lymphocytes # (Manual) APTT POC ABG pH ABG pH POC ABG pCO2 POC ABG pO2 ABG pO2 ABG HCO3 ABG Base Excess ABG Hemoglobin VBG pH Oxyhemoglobin Sodium Potassium Chloride Carbon Dioxide BUN Creatinine Glucose POC Glucose 246 H 208 H 195 H Lactic Acid Calcium AST ALT Alkaline Phosphatase CK-MB (CK-2) CK-MB (CK-2) Rel Index Total Protein Albumin TSH Urine WBC (Auto) Salicylates 03/26/17 03/27/17 03/27/17 21:58 05:18 14:57 WBC RBC Hgb Hct MCV MCH RDW Plt Count Lymph % (Auto) [place] % (Auto) Eos % (Auto) Seg Neutrophils % Seg Neuts % (Manual) Lymphocytes % (Manual) Seg Neutrophils # Seg Neutrophils # Man Lymphocytes # (Manual) APTT POC ABG pH ABG pH POC ABG pCO2 POC ABG pO2 ABG pO2 ABG HCO3 ABG Base Excess ABG Hemoglobin VBG pH Oxyhemoglobin Sodium Potassium Chloride Carbon Dioxide BUN Creatinine Glucose POC Glucose 241 H 199 H 269 H Lactic Acid Calcium AST ALT Alkaline Phosphatase CK-MB (CK-2) CK-MB (CK-2) Rel Index Total Protein Albumin TSH Urine WBC (Auto) Salicylates 03/27/17 03/28/17 03/28/17 21:33 13:52 21:29 WBC RBC Hgb Hct MCV MCH RDW Plt Count Lymph % (Auto) [place] % (Auto) Eos % (Auto) Seg Neutrophils % Seg Neuts % (Manual) Lymphocytes % (Manual) Seg Neutrophils # Seg Neutrophils # Man Lymphocytes # (Manual) APTT POC ABG pH ABG pH POC ABG pCO2 POC ABG pO2 ABG pO2 ABG HCO3 ABG Base Excess ABG Hemoglobin VBG pH Oxyhemoglobin Sodium Potassium Chloride Carbon Dioxide BUN Creatinine Glucose POC Glucose 214 H 243 H 286 H Lactic Acid Calcium AST ALT Alkaline Phosphatase CK-MB (CK-2) CK-MB (CK-2) Rel Index Total Protein Albumin TSH Urine WBC (Auto) Salicylates 03/29/17 03/29/17 03/29/17 04:32 04:32 13:58 WBC RBC Hgb 10.6 L Hct 32.9 L MCV 78 L MCH 25 L RDW 17.6 H Plt Count Lymph % (Auto) 38.0 H Norman % (Auto) 9.7 H Eos % (Auto) Seg Neutrophils % Seg Neuts % (Manual) Lymphocytes % (Manual) Seg Neutrophils # Seg Neutrophils # Man Lymphocytes # (Manual) APTT POC ABG pH ABG pH POC ABG pCO2 POC ABG pO2 ABG pO2 ABG HCO3 ABG Base Excess ABG Hemoglobin VBG pH Oxyhemoglobin Sodium 132 L Potassium Chloride 94.0 L Carbon Dioxide BUN 28 H Creatinine 0.5 L Glucose 236 H POC Glucose 171 H Lactic Acid Calcium AST ALT 71 H Alkaline Phosphatase 391 H CK-MB (CK-2) CK-MB (CK-2) Rel Index Total Protein 8.3 H Albumin 2.9 L TSH Urine WBC (Auto) Salicylates 03/29/17 03/30/17 03/30/17 20:59 06:07 11:52 WBC RBC Hgb Hct MCV MCH RDW Plt Count Lymph % (Auto) Norman % (Auto) Eos % (Auto) Seg Neutrophils % Seg Neuts % (Manual) Lymphocytes % (Manual) Seg Neutrophils # Seg Neutrophils # Man Lymphocytes # (Manual) APTT POC ABG pH ABG pH POC ABG pCO2 POC ABG pO2 ABG pO2 ABG HCO3 ABG Base Excess ABG Hemoglobin VBG pH Oxyhemoglobin Sodium Potassium Chloride Carbon Dioxide BUN Creatinine Glucose POC Glucose 215 H 259 H 197 H Lactic Acid Calcium AST ALT Alkaline Phosphatase CK-MB (CK-2) CK-MB (CK-2) Rel Index Total Protein Albumin TSH Urine WBC (Auto) Salicylates 03/30/17 03/31/17 21:34 05:42 WBC RBC Hgb Hct MCV MCH RDW Plt Count Lymph % (Auto) Norman % (Auto) Eos % (Auto) Seg Neutrophils % Seg Neuts % (Manual) Lymphocytes % (Manual) Seg Neutrophils # Seg Neutrophils # Man Lymphocytes # (Manual) APTT POC ABG pH ABG pH POC ABG pCO2 POC ABG pO2 ABG pO2 ABG HCO3 ABG Base Excess ABG Hemoglobin VBG pH Oxyhemoglobin Sodium Potassium Chloride Carbon Dioxide BUN Creatinine Glucose POC Glucose 207 H 184 H Lactic Acid Calcium AST ALT Alkaline Phosphatase CK-MB (CK-2) CK-MB (CK-2) Rel Index Total Protein Albumin TSH Urine WBC (Auto) Salicylates
--- NOTE | 2017-04-01 04:58 | Progress Note ---
Assessment and Plan 51 y/o male found down, concern for sepsis and now encephalopathic requiring mechanical ventilation. No new recommendations for today. Please see below. 1. continue supportive care 2. 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 I am aware that he is an AND but trach will not fix this problem and is not in my professional opinion the right thing to do for this patient. Most likely he will never be weaned from the vent and will remain in a persistent vegatative state. 3. Overall prognosis continues to be poor. 4. Will not check labs 5. Vitals should be qshift 6. This patient's possibility of awakening from this persistent vegatative is unlikely. The current status is that there has been paper work filed to obtain guardianship so that end of life decisions can be made. Supportive care is reasonable but checking daily labs and doing other invasive things to this patient I do not feel is morally and ethically appropriate. Subjective Date of service: 04/01/17 Principal diagnosis: Acute respiratory failure,encephalopathy Interval history: No acute events. Clinical status unchanged. Objective Vital Signs - 12hr 03/31/17 03/31/17 03/31/17 17:12 18:00 19:22 Temperature Pulse Rate 70 73 75 Pulse Rate [ From Monitor] Pulse Rate [ Left Dorsalis Pedis] Pulse Rate [ Left Radial] Pulse Rate [ Right Dorsalis Pedis] Pulse Rate [ Right Radial] Respiratory 18 16 19 Rate Blood Pressure 135/83 138/83 138/83 O2 Sat by Pulse 100 99 99 Oximetry 03/31/17 03/31/17 03/31/17 20:00 22:00 23:24 Temperature 98.8 F Pulse Rate 77 73 76 Pulse Rate [ 74 From Monitor] Pulse Rate [ 74 Left Dorsalis Pedis] Pulse Rate [ 74 Left Radial] Pulse Rate [ 74 Right Dorsalis Pedis] Pulse Rate [ 74 Right Radial] Respiratory 18 14 Rate Blood Pressure 138/83 138/83 138/83 O2 Sat by Pulse 100 100 100 Oximetry 04/01/17 04/01/17 04/01/17 00:00 03:41 04:00 Temperature 99.1 F 99.2 F Pulse Rate 92 H Pulse Rate [ From Monitor] Pulse Rate [ Left Dorsalis Pedis] Pulse Rate [ Left Radial] Pulse Rate [ Right Dorsalis Pedis] Pulse Rate [ Right Radial] Respiratory Rate Blood Pressure 137/84 O2 Sat by Pulse 95 Oximetry Constitutional: no acute distress, other (intubated, on vent support) Eyes: non-icteric ENT: oropharynx moist Neck: supple, no JVD Effort: normal Ascultation: Bilateral: clear, diminished breath sounds Cardiovascular: regular rate and rhythm Gastrointestinal: normoactive bowel sounds, soft, non-tender, non-distended Integumentary: normal Extremities: no cyanosis, no edema, pink and warm Neurologic: pupils equal and round, other (minimal responsive,no posturing, otherwise no changes, not following any commands. ) Psychiatric: other (unable to obtain) CBC and BMP: 03/29/17 04:32 03/29/17 04:32 ABG, PT/INR, D-dimer: ABG POC ABG pH 7.442 (7.35-7.45) 01/31/17 18:55 ABG pH 7.420 pH Units (7.350-7.450) 01/17/17 04:35 POC ABG pCO2 32.8 (35-45) L 01/31/17 18:55 ABG pCO2 34.5 mm Hg 01/17/17 04:35 POC ABG pO2 82 (80-105) 01/31/17 18:55 ABG pO2 160.3 mm Hg (80.0-90.0) H 01/17/17 04:35 POC ABG HCO3 22.4 01/31/17 18:55 POC ABG Total CO2 23 01/31/17 18:55 POC ABG O2 Sat 97 01/31/17 18:55 ABG O2 Saturation 99.0 % (95.0-99.0) 01/17/17 04:35 PT/INR, D-dimer PT 14.1 Sec. (12.2-14.9) 01/17/17 04:10 INR 1.04 (0.87-1.13) 01/17/17 04:10 Abnormal lab findings: Abnormal Labs 01/09/17 01/09/17 01/09/17 10:16 10:16 10:16 WBC RBC Hgb 9.7 L Hct 28.4 L MCV 76 L MCH 26 L RDW 17.2 H Plt Count 448 H Lymph % (Auto) [place] % (Auto) Eos % (Auto) Seg Neutrophils % 79.5 H Seg Neuts % (Manual) Lymphocytes % (Manual) Seg Neutrophils # Seg Neutrophils # Man Lymphocytes # (Manual) APTT 39.6 H POC ABG pH ABG pH POC ABG pCO2 POC ABG pO2 ABG pO2 ABG HCO3 ABG Base Excess ABG Hemoglobin VBG pH Oxyhemoglobin Sodium 132 L Potassium Chloride 96.7 L Carbon Dioxide 21 L BUN 34 H Creatinine Glucose POC Glucose Lactic Acid Calcium 8.3 L AST ALT Alkaline Phosphatase 151 H CK-MB (CK-2) 7.1 H CK-MB (CK-2) Rel Index 5.2 H Total Protein Albumin 3.3 L TSH Urine WBC (Auto) Salicylates 01/09/17 01/09/17 01/09/17 10:16 10:16 10:16 WBC RBC Hgb Hct MCV MCH RDW Plt Count Lymph % (Auto) [place] % (Auto) Eos % (Auto) Seg Neutrophils % Seg Neuts % (Manual) Lymphocytes % (Manual) Seg Neutrophils # Seg Neutrophils # Man Lymphocytes # (Manual) APTT POC ABG pH ABG pH POC ABG pCO2 POC ABG pO2 ABG pO2 ABG HCO3 ABG Base Excess ABG Hemoglobin VBG pH 7.284 L Oxyhemoglobin Sodium Potassium Chloride Carbon Dioxide BUN Creatinine Glucose POC Glucose Lactic Acid Calcium AST ALT Alkaline Phosphatase CK-MB (CK-2) CK-MB (CK-2) Rel Index Total Protein Albumin TSH 52.800 H Urine WBC (Auto) Salicylates < 0.3 L 01/09/17 01/09/17 01/09/17 10:23 11:14 12:49 WBC RBC Hgb Hct MCV MCH RDW Plt Count Lymph % (Auto) [place] % (Auto) Eos % (Auto) Seg Neutrophils % Seg Neuts % (Manual) Lymphocytes % (Manual) Seg Neutrophils # Seg Neutrophils # Man Lymphocytes # (Manual) APTT POC ABG pH ABG pH POC ABG pCO2 POC ABG pO2 643 H ABG pO2 ABG HCO3 ABG Base Excess ABG Hemoglobin VBG pH Oxyhemoglobin Sodium Potassium Chloride Carbon Dioxide BUN Creatinine Glucose POC Glucose < 40 L Lactic Acid Calcium AST ALT Alkaline Phosphatase CK-MB (CK-2) CK-MB (CK-2) Rel Index Total Protein Albumin TSH Urine WBC (Auto) 61.0 H Salicylates 01/09/17 01/09/17 01/09/17 13:13 14:21 15:09 WBC RBC Hgb Hct MCV MCH RDW Plt Count Lymph % (Auto) [place] % (Auto) Eos % (Auto) Seg Neutrophils % Seg Neuts % (Manual) Lymphocytes % (Manual) Seg Neutrophils # Seg Neutrophils # Man Lymphocytes # (Manual) APTT POC ABG pH ABG pH POC ABG pCO2 POC ABG pO2 ABG pO2 ABG HCO3 ABG Base Excess ABG Hemoglobin VBG pH Oxyhemoglobin Sodium Potassium Chloride Carbon Dioxide BUN Creatinine Glucose POC Glucose 128 H 65 L 120 H Lactic Acid Calcium AST ALT Alkaline Phosphatase CK-MB (CK-2) CK-MB (CK-2) Rel Index Total Protein Albumin TSH Urine WBC (Auto) Salicylates 01/09/17 01/09/17 01/10/17 16:28 17:14 04:30 WBC 24.1 H RBC 3.38 L Hgb 8.5 L Hct 26.0 L MCV 77 L MCH 25 L RDW 17.9 H Plt Count 474 H Lymph % (Auto) [place] % (Auto) Eos % (Auto) Seg Neutrophils % Seg Neuts % (Manual) 88.0 H Lymphocytes % (Manual) 4.0 L Seg Neutrophils # Seg Neutrophils # Man 21.2 H Lymphocytes # (Manual) 1.0 L APTT POC ABG pH ABG pH POC ABG pCO2 POC ABG pO2 ABG pO2 ABG HCO3 ABG Base Excess ABG Hemoglobin VBG pH Oxyhemoglobin Sodium Potassium Chloride Carbon Dioxide BUN Creatinine Glucose POC Glucose 44 L 112 H Lactic Acid Calcium AST ALT Alkaline Phosphatase CK-MB (CK-2) CK-MB (CK-2) Rel Index Total Protein Albumin TSH Urine WBC (Auto) Salicylates 01/10/17 01/10/17 01/10/17 04:30 05:41 05:45 WBC RBC Hgb Hct MCV MCH RDW Plt Count Lymph % (Auto) [place] % (Auto) Eos % (Auto) Seg Neutrophils % Seg Neuts % (Manual) Lymphocytes % (Manual) Seg Neutrophils # Seg Neutrophils # Man Lymphocytes # (Manual) APTT POC ABG pH ABG pH POC ABG pCO2 26.6 L POC ABG pO2 207 H ABG pO2 ABG HCO3 ABG Base Excess ABG Hemoglobin VBG pH Oxyhemoglobin Sodium Potassium Chloride Carbon Dioxide 17 L BUN 27 H Creatinine Glucose POC Glucose 68 L Lactic Acid Calcium 7.5 L AST ALT Alkaline Phosphatase CK-MB (CK-2) CK-MB (CK-2) Rel Index Total Protein Albumin TSH Urine WBC (Auto) Salicylates 01/10/17 01/10/17 01/10/17 07:47 10:50 13:41 WBC RBC Hgb Hct MCV MCH RDW Plt Count Lymph % (Auto) [place] % (Auto) Eos % (Auto) Seg Neutrophils % Seg Neuts % (Manual) Lymphocytes % (Manual) Seg Neutrophils # Seg Neutrophils # Man Lymphocytes # (Manual) APTT POC ABG pH ABG pH POC ABG pCO2 POC ABG pO2 ABG pO2 ABG HCO3 ABG Base Excess ABG Hemoglobin VBG pH Oxyhemoglobin Sodium Potassium Chloride Carbon Dioxide BUN Creatinine Glucose POC Glucose 148 H 165 H 114 H Lactic Acid Calcium AST ALT Alkaline Phosphatase CK-MB (CK-2) CK-MB (CK-2) Rel Index Total Protein Albumin TSH Urine WBC (Auto) Salicylates 01/10/17 01/10/17 01/10/17 20:20 21:39 23:24 WBC RBC Hgb Hct MCV MCH RDW Plt Count Lymph % (Auto) [place] % (Auto) Eos % (Auto) Seg Neutrophils % Seg Neuts % (Manual) Lymphocytes % (Manual) Seg Neutrophils # Seg Neutrophils # Man Lymphocytes # (Manual) APTT POC ABG pH ABG pH POC ABG pCO2 POC ABG pO2 ABG pO2 ABG HCO3 ABG Base Excess ABG Hemoglobin VBG pH Oxyhemoglobin Sodium Potassium Chloride Carbon Dioxide BUN Creatinine Glucose POC Glucose 150 H 175 H 155 H Lactic Acid Calcium AST ALT Alkaline Phosphatase CK-MB (CK-2) CK-MB (CK-2) Rel Index Total Protein Albumin TSH Urine WBC (Auto) Salicylates 01/11/17 01/11/17 01/11/17 00:19 04:06 05:20 WBC 15.2 H RBC 3.40 L Hgb 8.9 L Hct 26.3 L MCV 78 L MCH 26 L RDW 18.6 H Plt Count 462 H Lymph % (Auto) 13.2 L [place] % (Auto) Eos % (Auto) Seg Neutrophils % 80.8 H Seg Neuts % (Manual) Lymphocytes % (Manual) Seg Neutrophils # 12.3 H Seg Neutrophils # Man Lymphocytes # (Manual) APTT POC ABG pH 7.463 H ABG pH POC ABG pCO2 26.2 L POC ABG pO2 185 H ABG pO2 ABG HCO3 ABG Base Excess ABG Hemoglobin VBG pH Oxyhemoglobin Sodium Potassium Chloride Carbon Dioxide BUN Creatinine Glucose POC Glucose 163 H Lactic Acid Calcium AST ALT Alkaline Phosphatase CK-MB (CK-2) CK-MB (CK-2) Rel Index Total Protein Albumin TSH Urine WBC (Auto) Salicylates 01/11/17 01/11/17 01/11/17 05:20 06:21 07:57 WBC RBC Hgb Hct MCV MCH RDW Plt Count Lymph % (Auto) [place] % (Auto) Eos % (Auto) Seg Neutrophils % Seg Neuts % (Manual) Lymphocytes % (Manual) Seg Neutrophils # Seg Neutrophils # Man Lymphocytes # (Manual) APTT POC ABG pH ABG pH POC ABG pCO2 POC ABG pO2 ABG pO2 ABG HCO3 ABG Base Excess ABG Hemoglobin VBG pH Oxyhemoglobin Sodium Potassium 3.4 L Chloride 111.5 H Carbon Dioxide 17 L BUN Creatinine Glucose 147 H POC Glucose 139 H 188 H Lactic Acid Calcium 8.0 L AST ALT Alkaline Phosphatase CK-MB (CK-2) CK-MB (CK-2) Rel Index Total Protein Albumin TSH Urine WBC (Auto) Salicylates 01/11/17 01/11/17 01/11/17 11:46 16:50 23:15 WBC RBC Hgb Hct MCV MCH RDW Plt Count Lymph % (Auto) [place] % (Auto) Eos % (Auto) Seg Neutrophils % Seg Neuts % (Manual) Lymphocytes % (Manual) Seg Neutrophils # Seg Neutrophils # Man Lymphocytes # (Manual) APTT POC ABG pH ABG pH POC ABG pCO2 POC ABG pO2 ABG pO2 ABG HCO3 ABG Base Excess ABG Hemoglobin VBG pH Oxyhemoglobin Sodium Potassium Chloride Carbon Dioxide BUN Creatinine Glucose POC Glucose 199 H 235 H 155 H Lactic Acid Calcium AST ALT Alkaline Phosphatase CK-MB (CK-2) CK-MB (CK-2) Rel Index Total Protein Albumin TSH Urine WBC (Auto) Salicylates 01/12/17 01/12/17 01/12/17 05:02 06:56 14:50 WBC RBC Hgb Hct MCV MCH RDW Plt Count Lymph % (Auto) [place] % (Auto) Eos % (Auto) Seg Neutrophils % Seg Neuts % (Manual) Lymphocytes % (Manual) Seg Neutrophils # Seg Neutrophils # Man Lymphocytes # (Manual) APTT POC ABG pH ABG pH POC ABG pCO2 28.0 L POC ABG pO2 178 H ABG pO2 ABG HCO3 ABG Base Excess ABG Hemoglobin VBG pH Oxyhemoglobin Sodium Potassium Chloride Carbon Dioxide BUN Creatinine Glucose POC Glucose 119 H 164 H Lactic Acid Calcium AST ALT Alkaline Phosphatase CK-MB (CK-2) CK-MB (CK-2) Rel Index Total Protein Albumin TSH Urine WBC (Auto) Salicylates 01/13/17 01/13/17 01/13/17 03:37 03:37 04:26 WBC RBC 3.61 L Hgb 9.3 L Hct 28.0 L MCV 78 L MCH 26 L RDW 18.2 H Plt Count Lymph % (Auto) [place] % (Auto) Eos % (Auto) Seg Neutrophils % Seg Neuts % (Manual) Lymphocytes % (Manual) Seg Neutrophils # Seg Neutrophils # Man Lymphocytes # (Manual) APTT POC ABG pH 7.485 H ABG pH POC ABG pCO2 25.4 L POC ABG pO2 73 L ABG pO2 ABG HCO3 ABG Base Excess ABG Hemoglobin VBG pH Oxyhemoglobin Sodium Potassium Chloride 112.4 H Carbon Dioxide 19 L BUN Creatinine Glucose 118 H POC Glucose Lactic Acid Calcium 8.0 L AST ALT Alkaline Phosphatase CK-MB (CK-2) CK-MB (CK-2) Rel Index Total Protein Albumin TSH Urine WBC (Auto) Salicylates 01/13/17 01/13/17 01/13/17 06:15 11:50 17:31 WBC RBC Hgb Hct MCV MCH RDW Plt Count Lymph % (Auto) [place] % (Auto) Eos % (Auto) Seg Neutrophils % Seg Neuts % (Manual) Lymphocytes % (Manual) Seg Neutrophils # Seg Neutrophils # Man Lymphocytes # (Manual) APTT POC ABG pH ABG pH POC ABG pCO2 POC ABG pO2 ABG pO2 ABG HCO3 ABG Base Excess ABG Hemoglobin VBG pH Oxyhemoglobin Sodium Potassium Chloride Carbon Dioxide BUN Creatinine Glucose POC Glucose 116 H 171 H 203 H Lactic Acid Calcium AST ALT Alkaline Phosphatase CK-MB (CK-2) CK-MB (CK-2) Rel Index Total Protein Albumin TSH Urine WBC (Auto) Salicylates 01/14/17 01/14/17 01/14/17 00:02 04:50 04:50 WBC RBC 3.32 L Hgb 8.5 L Hct 26.1 L MCV 79 L MCH 26 L RDW 18.2 H Plt Count Lymph % (Auto) [place] % (Auto) 9.0 H Eos % (Auto) Seg Neutrophils % Seg Neuts % (Manual) Lymphocytes % (Manual) Seg Neutrophils # Seg Neutrophils # Man Lymphocytes # (Manual) APTT POC ABG pH ABG pH POC ABG pCO2 POC ABG pO2 ABG pO2 ABG HCO3 ABG Base Excess ABG Hemoglobin VBG pH Oxyhemoglobin Sodium Potassium Chloride 112.5 H Carbon Dioxide BUN Creatinine Glucose 149 H POC Glucose 157 H Lactic Acid Calcium 8.1 L AST ALT Alkaline Phosphatase CK-MB (CK-2) CK-MB (CK-2) Rel Index Total Protein Albumin TSH Urine WBC (Auto) Salicylates 01/14/17 01/14/17 01/14/17 05:10 11:27 14:07 WBC RBC Hgb Hct MCV MCH RDW Plt Count Lymph % (Auto) [place] % (Auto) Eos % (Auto) Seg Neutrophils % Seg Neuts % (Manual) Lymphocytes % (Manual) Seg Neutrophils # Seg Neutrophils # Man Lymphocytes # (Manual) APTT POC ABG pH ABG pH POC ABG pCO2 POC ABG pO2 ABG pO2 ABG HCO3 ABG Base Excess ABG Hemoglobin VBG pH Oxyhemoglobin Sodium Potassium Chloride Carbon Dioxide BUN Creatinine Glucose POC Glucose 176 H 147 H Lactic Acid Calcium AST ALT Alkaline Phosphatase CK-MB (CK-2) CK-MB (CK-2) Rel Index Total Protein Albumin TSH Urine WBC (Auto) 53.0 H Salicylates 01/14/17 01/15/17 01/15/17 16:52 00:04 05:26 WBC RBC Hgb Hct MCV MCH RDW Plt Count Lymph % (Auto) [place] % (Auto) Eos % (Auto) Seg Neutrophils % Seg Neuts % (Manual) Lymphocytes % (Manual) Seg Neutrophils # Seg Neutrophils # Man Lymphocytes # (Manual) APTT POC ABG pH ABG pH POC ABG pCO2 POC ABG pO2 ABG pO2 ABG HCO3 ABG Base Excess ABG Hemoglobin VBG pH Oxyhemoglobin Sodium Potassium Chloride Carbon Dioxide BUN Creatinine Glucose POC Glucose 131 H 193 H 215 H Lactic Acid Calcium AST ALT Alkaline Phosphatase CK-MB (CK-2) CK-MB (CK-2) Rel Index Total Protein Albumin TSH Urine WBC (Auto) Salicylates 01/15/17 01/15/17 01/15/17 11:49 17:47 21:33 WBC RBC Hgb Hct MCV MCH RDW Plt Count Lymph % (Auto) [place] % (Auto) Eos % (Auto) Seg Neutrophils % Seg Neuts % (Manual) Lymphocytes % (Manual) Seg Neutrophils # Seg Neutrophils # Man Lymphocytes # (Manual) APTT POC ABG pH ABG pH POC ABG pCO2 POC ABG pO2 ABG pO2 ABG HCO3 ABG Base Excess ABG Hemoglobin VBG pH Oxyhemoglobin Sodium Potassium Chloride Carbon Dioxide BUN Creatinine Glucose POC Glucose 121 H 211 H 275 H Lactic Acid Calcium AST ALT Alkaline Phosphatase CK-MB (CK-2) CK-MB (CK-2) Rel Index Total Protein Albumin TSH Urine WBC (Auto) Salicylates 01/16/17 01/16/17 01/16/17 04:30 05:28 13:45 WBC RBC Hgb Hct MCV MCH RDW Plt Count Lymph % (Auto) [place] % (Auto) Eos % (Auto) Seg Neutrophils % Seg Neuts % (Manual) Lymphocytes % (Manual) Seg Neutrophils # Seg Neutrophils # Man Lymphocytes # (Manual) APTT POC ABG pH ABG pH 7.457 H POC ABG pCO2 POC ABG pO2 ABG pO2 55.1 L ABG HCO3 19.4 L ABG Base Excess -4.0 L ABG Hemoglobin 6.8 L VBG pH Oxyhemoglobin 94.9 L Sodium Potassium Chloride Carbon Dioxide BUN Creatinine Glucose POC Glucose 271 H 236 H Lactic Acid Calcium AST ALT Alkaline Phosphatase CK-MB (CK-2) CK-MB (CK-2) Rel Index Total Protein Albumin TSH Urine WBC (Auto) Salicylates 01/16/17 01/17/17 01/17/17 21:39 04:10 04:10 WBC 4.4 L RBC 2.98 L Hgb 7.7 L Hct 23.3 L MCV 78 L MCH 26 L RDW 18.1 H Plt Count Lymph % (Auto) [place] % (Auto) Eos % (Auto) Seg Neutrophils % Seg Neuts % (Manual) Lymphocytes % (Manual) Seg Neutrophils # Seg Neutrophils # Man Lymphocytes # (Manual) APTT POC ABG pH ABG pH POC ABG pCO2 POC ABG pO2 ABG pO2 ABG HCO3 ABG Base Excess ABG Hemoglobin VBG pH Oxyhemoglobin Sodium Potassium 3.3 L Chloride 108.7 H Carbon Dioxide 20 L BUN 8 L Creatinine Glucose 202 H POC Glucose 258 H Lactic Acid Calcium 7.6 L AST ALT Alkaline Phosphatase CK-MB (CK-2) CK-MB (CK-2) Rel Index Total Protein Albumin TSH Urine WBC (Auto) Salicylates 01/17/17 01/17/17 01/17/17 04:35 12:23 16:01 WBC RBC Hgb Hct MCV MCH RDW Plt Count Lymph % (Auto) [place] % (Auto) Eos % (Auto) Seg Neutrophils % Seg Neuts % (Manual) Lymphocytes % (Manual) Seg Neutrophils # Seg Neutrophils # Man Lymphocytes # (Manual) APTT POC ABG pH ABG pH POC ABG pCO2 POC ABG pO2 ABG pO2 160.3 H ABG HCO3 ABG Base Excess -2.3 L ABG Hemoglobin 7.9 L VBG pH Oxyhemoglobin Sodium Potassium Chloride Carbon Dioxide BUN Creatinine Glucose POC Glucose 321 H 239 H Lactic Acid Calcium AST ALT Alkaline Phosphatase CK-MB (CK-2) CK-MB (CK-2) Rel Index Total Protein Albumin TSH Urine WBC (Auto) Salicylates 01/18/17 01/18/17 01/18/17 05:07 12:09 17:54 WBC RBC Hgb Hct MCV MCH RDW Plt Count Lymph % (Auto) [place] % (Auto) Eos % (Auto) Seg Neutrophils % Seg Neuts % (Manual) Lymphocytes % (Manual) Seg Neutrophils # Seg Neutrophils # Man Lymphocytes # (Manual) APTT POC ABG pH ABG pH POC ABG pCO2 POC ABG pO2 ABG pO2 ABG HCO3 ABG Base Excess ABG Hemoglobin VBG pH Oxyhemoglobin Sodium Potassium Chloride Carbon Dioxide BUN Creatinine Glucose POC Glucose 155 H 203 H 132 H Lactic Acid Calcium AST ALT Alkaline Phosphatase CK-MB (CK-2) CK-MB (CK-2) Rel Index Total Protein Albumin TSH Urine WBC (Auto) Salicylates 01/18/17 01/19/17 01/19/17 23:43 04:28 12:11 WBC RBC Hgb Hct MCV MCH RDW Plt Count Lymph % (Auto) [place] % (Auto) Eos % (Auto) Seg Neutrophils % Seg Neuts % (Manual) Lymphocytes % (Manual) Seg Neutrophils # Seg Neutrophils # Man Lymphocytes # (Manual) APTT POC ABG pH ABG pH POC ABG pCO2 POC ABG pO2 ABG pO2 ABG HCO3 ABG Base Excess ABG Hemoglobin VBG pH Oxyhemoglobin Sodium Potassium Chloride Carbon Dioxide BUN Creatinine Glucose POC Glucose 125 H 182 H 153 H Lactic Acid Calcium AST ALT Alkaline Phosphatase CK-MB (CK-2) CK-MB (CK-2) Rel Index Total Protein Albumin TSH Urine WBC (Auto) Salicylates 01/19/17 01/20/17 01/20/17 17:23 00:12 05:44 WBC RBC Hgb Hct MCV MCH RDW Plt Count Lymph % (Auto) [place] % (Auto) Eos % (Auto) Seg Neutrophils % Seg Neuts % (Manual) Lymphocytes % (Manual) Seg Neutrophils # Seg Neutrophils # Man Lymphocytes # (Manual) APTT POC ABG pH ABG pH POC ABG pCO2 POC ABG pO2 ABG pO2 ABG HCO3 ABG Base Excess ABG Hemoglobin VBG pH Oxyhemoglobin Sodium Potassium Chloride Carbon Dioxide BUN Creatinine Glucose POC Glucose 66 L 139 H 176 H Lactic Acid Calcium AST ALT Alkaline Phosphatase CK-MB (CK-2) CK-MB (CK-2) Rel Index Total Protein Albumin TSH Urine WBC (Auto) Salicylates 01/20/17 01/20/17 01/20/17 11:48 17:42 23:43 WBC RBC Hgb Hct MCV MCH RDW Plt Count Lymph % (Auto) [place] % (Auto) Eos % (Auto) Seg Neutrophils % Seg Neuts % (Manual) Lymphocytes % (Manual) Seg Neutrophils # Seg Neutrophils # Man Lymphocytes # (Manual) APTT POC ABG pH ABG pH POC ABG pCO2 POC ABG pO2 ABG pO2 ABG HCO3 ABG Base Excess ABG Hemoglobin VBG pH Oxyhemoglobin Sodium Potassium Chloride Carbon Dioxide BUN Creatinine Glucose POC Glucose 218 H 132 H 178 H Lactic Acid Calcium AST ALT Alkaline Phosphatase CK-MB (CK-2) CK-MB (CK-2) Rel Index Total Protein Albumin TSH Urine WBC (Auto) Salicylates 01/21/17 01/21/17 01/21/17 05:34 11:17 23:37 WBC RBC Hgb Hct MCV MCH RDW Plt Count Lymph % (Auto) [place] % (Auto) Eos % (Auto) Seg Neutrophils % Seg Neuts % (Manual) Lymphocytes % (Manual) Seg Neutrophils # Seg Neutrophils # Man Lymphocytes # (Manual) APTT POC ABG pH ABG pH POC ABG pCO2 POC ABG pO2 ABG pO2 ABG HCO3 ABG Base Excess ABG Hemoglobin VBG pH Oxyhemoglobin Sodium Potassium Chloride Carbon Dioxide BUN Creatinine Glucose POC Glucose 106 H 213 H 140 H Lactic Acid Calcium AST ALT Alkaline Phosphatase CK-MB (CK-2) CK-MB (CK-2) Rel Index Total Protein Albumin TSH Urine WBC (Auto) Salicylates 01/22/17 01/22/17 01/22/17 04:00 04:00 04:58 WBC RBC 3.26 L Hgb 8.3 L Hct 25.5 L MCV 78 L MCH 25 L RDW 17.9 H Plt Count Lymph % (Auto) [place] % (Auto) 7.9 H Eos % (Auto) 6.2 H Seg Neutrophils % Seg Neuts % (Manual) Lymphocytes % (Manual) Seg Neutrophils # Seg Neutrophils # Man Lymphocytes # (Manual) APTT POC ABG pH ABG pH POC ABG pCO2 POC ABG pO2 ABG pO2 ABG HCO3 ABG Base Excess ABG Hemoglobin VBG pH Oxyhemoglobin Sodium Potassium Chloride 95.5 L Carbon Dioxide 31 H D BUN Creatinine Glucose 134 H POC Glucose 146 H Lactic Acid Calcium AST 44 H ALT Alkaline Phosphatase 379 H CK-MB (CK-2) CK-MB (CK-2) Rel Index Total Protein Albumin 2.7 L TSH Urine WBC (Auto) Salicylates 01/22/17 01/22/17 01/22/17 12:12 18:12 23:39 WBC RBC Hgb Hct MCV MCH RDW Plt Count Lymph % (Auto) [place] % (Auto) Eos % (Auto) Seg Neutrophils % Seg Neuts % (Manual) Lymphocytes % (Manual) Seg Neutrophils # Seg Neutrophils # Man Lymphocytes # (Manual) APTT POC ABG pH ABG pH POC ABG pCO2 POC ABG pO2 ABG pO2 ABG HCO3 ABG Base Excess ABG Hemoglobin VBG pH Oxyhemoglobin Sodium Potassium Chloride Carbon Dioxide BUN Creatinine Glucose POC Glucose 255 H 182 H 134 H Lactic Acid Calcium AST ALT Alkaline Phosphatase CK-MB (CK-2) CK-MB (CK-2) Rel Index Total Protein Albumin TSH Urine WBC (Auto) Salicylates 01/23/17 01/23/17 01/23/17 04:43 12:12 17:36 WBC RBC Hgb Hct MCV MCH RDW Plt Count Lymph % (Auto) [place] % (Auto) Eos % (Auto) Seg Neutrophils % Seg Neuts % (Manual) Lymphocytes % (Manual) Seg Neutrophils # Seg Neutrophils # Man Lymphocytes # (Manual) APTT POC ABG pH ABG pH POC ABG pCO2 POC ABG pO2 ABG pO2 ABG HCO3 ABG Base Excess ABG Hemoglobin VBG pH Oxyhemoglobin Sodium Potassium Chloride Carbon Dioxide BUN Creatinine Glucose POC Glucose 218 H 128 H 156 H Lactic Acid Calcium AST ALT Alkaline Phosphatase CK-MB (CK-2) CK-MB (CK-2) Rel Index Total Protein Albumin TSH Urine WBC (Auto) Salicylates 01/24/17 01/24/17 01/24/17 00:08 05:16 11:40 WBC RBC Hgb Hct MCV MCH RDW Plt Count Lymph % (Auto) [place] % (Auto) Eos % (Auto) Seg Neutrophils % Seg Neuts % (Manual) Lymphocytes % (Manual) Seg Neutrophils # Seg Neutrophils # Man Lymphocytes # (Manual) APTT POC ABG pH ABG pH POC ABG pCO2 POC ABG pO2 ABG pO2 ABG HCO3 ABG Base Excess ABG Hemoglobin VBG pH Oxyhemoglobin Sodium Potassium Chloride Carbon Dioxide BUN Creatinine Glucose POC Glucose 129 H 169 H 187 H Lactic Acid Calcium AST ALT Alkaline Phosphatase CK-MB (CK-2) CK-MB (CK-2) Rel Index Total Protein Albumin TSH Urine WBC (Auto) Salicylates 01/24/17 01/24/17 01/25/17 17:43 23:23 04:56 WBC RBC Hgb Hct MCV MCH RDW Plt Count Lymph % (Auto) [place] % (Auto) Eos % (Auto) Seg Neutrophils % Seg Neuts % (Manual) Lymphocytes % (Manual) Seg Neutrophils # Seg Neutrophils # Man Lymphocytes # (Manual) APTT POC ABG pH ABG pH POC ABG pCO2 POC ABG pO2 ABG pO2 ABG HCO3 ABG Base Excess ABG Hemoglobin VBG pH Oxyhemoglobin Sodium Potassium Chloride Carbon Dioxide BUN Creatinine Glucose POC Glucose 215 H 222 H 210 H Lactic Acid Calcium AST ALT Alkaline Phosphatase CK-MB (CK-2) CK-MB (CK-2) Rel Index Total Protein Albumin TSH Urine WBC (Auto) Salicylates 01/25/17 01/25/17 01/26/17 11:52 17:37 00:02 WBC RBC Hgb Hct MCV MCH RDW Plt Count Lymph % (Auto) [place] % (Auto) Eos % (Auto) Seg Neutrophils % Seg Neuts % (Manual) Lymphocytes % (Manual) Seg Neutrophils # Seg Neutrophils # Man Lymphocytes # (Manual) APTT POC ABG pH ABG pH POC ABG pCO2 POC ABG pO2 ABG pO2 ABG HCO3 ABG Base Excess ABG Hemoglobin VBG pH Oxyhemoglobin Sodium Potassium Chloride Carbon Dioxide BUN Creatinine Glucose POC Glucose 284 H 218 H 192 H Lactic Acid Calcium AST ALT Alkaline Phosphatase CK-MB (CK-2) CK-MB (CK-2) Rel Index Total Protein Albumin TSH Urine WBC (Auto) Salicylates 01/26/17 01/26/17 01/26/17 05:33 12:17 17:50 WBC RBC Hgb Hct MCV MCH RDW Plt Count Lymph % (Auto) [place] % (Auto) Eos % (Auto) Seg Neutrophils % Seg Neuts % (Manual) Lymphocytes % (Manual) Seg Neutrophils # Seg Neutrophils # Man Lymphocytes # (Manual) APTT POC ABG pH ABG pH POC ABG pCO2 POC ABG pO2 ABG pO2 ABG HCO3 ABG Base Excess ABG Hemoglobin VBG pH Oxyhemoglobin Sodium Potassium Chloride Carbon Dioxide BUN Creatinine Glucose POC Glucose 199 H 227 H 229 H Lactic Acid Calcium AST ALT Alkaline Phosphatase CK-MB (CK-2) CK-MB (CK-2) Rel Index Total Protein Albumin TSH Urine WBC (Auto) Salicylates 01/26/17 01/27/17 01/27/17 23:57 05:31 11:42 WBC RBC Hgb Hct MCV MCH RDW Plt Count Lymph % (Auto) [place] % (Auto) Eos % (Auto) Seg Neutrophils % Seg Neuts % (Manual) Lymphocytes % (Manual) Seg Neutrophils # Seg Neutrophils # Man Lymphocytes # (Manual) APTT POC ABG pH ABG pH POC ABG pCO2 POC ABG pO2 ABG pO2 ABG HCO3 ABG Base Excess ABG Hemoglobin VBG pH Oxyhemoglobin Sodium Potassium Chloride Carbon Dioxide BUN Creatinine Glucose POC Glucose 186 H 285 H 260 H Lactic Acid Calcium AST ALT Alkaline Phosphatase CK-MB (CK-2) CK-MB (CK-2) Rel Index Total Protein Albumin TSH Urine WBC (Auto) Salicylates 01/27/17 01/27/17 01/27/17 17:47 23:58 Unknown WBC 12.1 H RBC 3.28 L Hgb 8.5 L Hct 25.5 L MCV 78 L MCH 26 L RDW 16.8 H Plt Count 601 H Lymph % (Auto) [place] % (Auto) Eos % (Auto) Seg Neutrophils % Seg Neuts % (Manual) Lymphocytes % (Manual) Seg Neutrophils # Seg Neutrophils # Man Lymphocytes # (Manual) APTT POC ABG pH ABG pH POC ABG pCO2 POC ABG pO2 ABG pO2 ABG HCO3 ABG Base Excess ABG Hemoglobin VBG pH Oxyhemoglobin Sodium Potassium Chloride Carbon Dioxide BUN Creatinine Glucose POC Glucose 329 H 225 H Lactic Acid Calcium AST ALT Alkaline Phosphatase CK-MB (CK-2) CK-MB (CK-2) Rel Index Total Protein Albumin TSH Urine WBC (Auto) Salicylates 01/27/17 01/28/17 01/28/17 Unknown 03:44 03:44 WBC RBC 3.14 L Hgb 8.2 L Hct 24.1 L MCV 77 L MCH 26 L RDW 16.9 H Plt Count 567 H Lymph % (Auto) [place] % (Auto) Eos % (Auto) Seg Neutrophils % Seg Neuts % (Manual) Lymphocytes % (Manual) Seg Neutrophils # Seg Neutrophils # Man Lymphocytes # (Manual) APTT POC ABG pH ABG pH POC ABG pCO2 POC ABG pO2 ABG pO2 ABG HCO3 ABG Base Excess ABG Hemoglobin VBG pH Oxyhemoglobin Sodium 128 L Potassium 5.4 H Chloride 87.5 L Carbon Dioxide BUN 44 H 42 H Creatinine Glucose 250 H 128 H POC Glucose Lactic Acid Calcium AST ALT Alkaline Phosphatase CK-MB (CK-2) CK-MB (CK-2) Rel Index Total Protein Albumin TSH Urine WBC (Auto) Salicylates 01/28/17 01/28/17 01/28/17 11:43 16:47 17:52 WBC RBC Hgb Hct MCV MCH RDW Plt Count Lymph % (Auto) [place] % (Auto) Eos % (Auto) Seg Neutrophils % Seg Neuts % (Manual) Lymphocytes % (Manual) Seg Neutrophils # Seg Neutrophils # Man Lymphocytes # (Manual) APTT POC ABG pH ABG pH POC ABG pCO2 POC ABG pO2 ABG pO2 ABG HCO3 ABG Base Excess ABG Hemoglobin VBG pH Oxyhemoglobin Sodium Potassium Chloride Carbon Dioxide BUN Creatinine Glucose POC Glucose 351 H 249 H Lactic Acid Calcium AST ALT Alkaline Phosphatase CK-MB (CK-2) CK-MB (CK-2) Rel Index Total Protein Albumin TSH Urine WBC (Auto) > 182.0 H Salicylates 01/29/17 01/29/17 01/29/17 05:25 05:25 09:32 WBC 13.6 H RBC 3.25 L Hgb 8.3 L Hct 25.1 L MCV 77 L MCH 26 L RDW 16.8 H Plt Count 514 H Lymph % (Auto) [place] % (Auto) Eos % (Auto) Seg Neutrophils % Seg Neuts % (Manual) Lymphocytes % (Manual) Seg Neutrophils # Seg Neutrophils # Man Lymphocytes # (Manual) APTT POC ABG pH ABG pH POC ABG pCO2 POC ABG pO2 ABG pO2 ABG HCO3 ABG Base Excess ABG Hemoglobin VBG pH Oxyhemoglobin Sodium Potassium Chloride 97.8 L Carbon Dioxide BUN 34 H Creatinine Glucose 222 H POC Glucose Lactic Acid 2.50 H* Calcium AST ALT Alkaline Phosphatase CK-MB (CK-2) CK-MB (CK-2) Rel Index Total Protein Albumin TSH Urine WBC (Auto) Salicylates 01/29/17 01/29/17 01/29/17 11:56 18:11 23:55 WBC RBC Hgb Hct MCV MCH RDW Plt Count Lymph % (Auto) [place] % (Auto) Eos % (Auto) Seg Neutrophils % Seg Neuts % (Manual) Lymphocytes % (Manual) Seg Neutrophils # Seg Neutrophils # Man Lymphocytes # (Manual) APTT POC ABG pH ABG pH POC ABG pCO2 POC ABG pO2 ABG pO2 ABG HCO3 ABG Base Excess ABG Hemoglobin VBG pH Oxyhemoglobin Sodium Potassium Chloride Carbon Dioxide BUN Creatinine Glucose POC Glucose 261 H 215 H 176 H Lactic Acid Calcium AST ALT Alkaline Phosphatase CK-MB (CK-2) CK-MB (CK-2) Rel Index Total Protein Albumin TSH Urine WBC (Auto) Salicylates 01/30/17 01/30/17 01/30/17 05:31 05:31 05:34 WBC 15.2 H RBC 3.09 L Hgb 7.9 L Hct 23.9 L MCV 77 L MCH 26 L RDW 16.9 H Plt Count 569 H Lymph % (Auto) [place] % (Auto) Eos % (Auto) Seg Neutrophils % Seg Neuts % (Manual) Lymphocytes % (Manual) Seg Neutrophils # Seg Neutrophils # Man Lymphocytes # (Manual) APTT POC ABG pH ABG pH POC ABG pCO2 POC ABG pO2 ABG pO2 ABG HCO3 ABG Base Excess ABG Hemoglobin VBG pH Oxyhemoglobin Sodium Potassium Chloride Carbon Dioxide BUN 24 H Creatinine Glucose 235 H POC Glucose 243 H Lactic Acid Calcium AST ALT Alkaline Phosphatase CK-MB (CK-2) CK-MB (CK-2) Rel Index Total Protein Albumin TSH Urine WBC (Auto) Salicylates 01/30/17 01/30/17 01/30/17 11:38 17:58 23:29 WBC RBC Hgb Hct MCV MCH RDW Plt Count Lymph % (Auto) [place] % (Auto) Eos % (Auto) Seg Neutrophils % Seg Neuts % (Manual) Lymphocytes % (Manual) Seg Neutrophils # Seg Neutrophils # Man Lymphocytes # (Manual) APTT POC ABG pH ABG pH POC ABG pCO2 POC ABG pO2 ABG pO2 ABG HCO3 ABG Base Excess ABG Hemoglobin VBG pH Oxyhemoglobin Sodium Potassium Chloride Carbon Dioxide BUN Creatinine Glucose POC Glucose 298 H 208 H 245 H Lactic Acid Calcium AST ALT Alkaline Phosphatase CK-MB (CK-2) CK-MB (CK-2) Rel Index Total Protein Albumin TSH Urine WBC (Auto) Salicylates 01/31/17 01/31/17 01/31/17 04:39 04:39 05:57 WBC 11.4 H RBC 3.22 L Hgb 8.2 L Hct 24.9 L MCV 78 L MCH 25 L RDW 17.2 H Plt Count 576 H Lymph % (Auto) [place] % (Auto) Eos % (Auto) Seg Neutrophils % Seg Neuts % (Manual) Lymphocytes % (Manual) Seg Neutrophils # Seg Neutrophils # Man Lymphocytes # (Manual) APTT POC ABG pH ABG pH POC ABG pCO2 POC ABG pO2 ABG pO2 ABG HCO3 ABG Base Excess ABG Hemoglobin VBG pH Oxyhemoglobin Sodium Potassium Chloride Carbon Dioxide BUN Creatinine 0.7 L Glucose 223 H POC Glucose 264 H Lactic Acid Calcium AST ALT Alkaline Phosphatase CK-MB (CK-2) CK-MB (CK-2) Rel Index Total Protein Albumin TSH Urine WBC (Auto) Salicylates 01/31/17 01/31/17 01/31/17 12:23 17:41 18:55 WBC RBC Hgb Hct MCV MCH RDW Plt Count Lymph % (Auto) [place] % (Auto) Eos % (Auto) Seg Neutrophils % Seg Neuts % (Manual) Lymphocytes % (Manual) Seg Neutrophils # Seg Neutrophils # Man Lymphocytes # (Manual) APTT POC ABG pH ABG pH POC ABG pCO2 32.8 L POC ABG pO2 ABG pO2 ABG HCO3 ABG Base Excess ABG Hemoglobin VBG pH Oxyhemoglobin Sodium Potassium Chloride Carbon Dioxide BUN Creatinine Glucose POC Glucose 252 H 208 H Lactic Acid Calcium AST ALT Alkaline Phosphatase CK-MB (CK-2) CK-MB (CK-2) Rel Index Total Protein Albumin TSH Urine WBC (Auto) Salicylates 01/31/17 02/01/17 02/01/17 22:59 03:38 03:38 WBC RBC 2.81 L Hgb 7.4 L Hct 22.1 L MCV 79 L MCH 27 L RDW 17.0 H Plt Count 540 H Lymph % (Auto) [place] % (Auto) Eos % (Auto) Seg Neutrophils % Seg Neuts % (Manual) Lymphocytes % (Manual) Seg Neutrophils # Seg Neutrophils # Man Lymphocytes # (Manual) APTT POC ABG pH ABG pH POC ABG pCO2 POC ABG pO2 ABG pO2 ABG HCO3 ABG Base Excess ABG Hemoglobin VBG pH Oxyhemoglobin Sodium Potassium Chloride Carbon Dioxide 21 L BUN Creatinine 0.7 L Glucose POC Glucose 40 L Lactic Acid Calcium AST ALT Alkaline Phosphatase CK-MB (CK-2) CK-MB (CK-2) Rel Index Total Protein Albumin TSH Urine WBC (Auto) Salicylates 02/01/17 02/01/17 02/01/17 05:17 12:19 16:44 WBC RBC Hgb Hct MCV MCH RDW Plt Count Lymph % (Auto) [place] % (Auto) Eos % (Auto) Seg Neutrophils % Seg Neuts % (Manual) Lymphocytes % (Manual) Seg Neutrophils # Seg Neutrophils # Man Lymphocytes # (Manual) APTT POC ABG pH ABG pH POC ABG pCO2 POC ABG pO2 ABG pO2 ABG HCO3 ABG Base Excess ABG Hemoglobin VBG pH Oxyhemoglobin Sodium Potassium Chloride Carbon Dioxide BUN Creatinine Glucose POC Glucose 140 H 213 H 172 H Lactic Acid Calcium AST ALT Alkaline Phosphatase CK-MB (CK-2) CK-MB (CK-2) Rel Index Total Protein Albumin TSH Urine WBC (Auto) Salicylates 02/01/17 02/02/17 02/02/17 23:59 05:14 11:24 WBC RBC Hgb Hct MCV MCH RDW Plt Count Lymph % (Auto) [place] % (Auto) Eos % (Auto) Seg Neutrophils % Seg Neuts % (Manual) Lymphocytes % (Manual) Seg Neutrophils # Seg Neutrophils # Man Lymphocytes # (Manual) APTT POC ABG pH ABG pH POC ABG pCO2 POC ABG pO2 ABG pO2 ABG HCO3 ABG Base Excess ABG Hemoglobin VBG pH Oxyhemoglobin Sodium Potassium Chloride Carbon Dioxide BUN Creatinine Glucose POC Glucose 181 H 194 H 209 H Lactic Acid Calcium AST ALT Alkaline Phosphatase CK-MB (CK-2) CK-MB (CK-2) Rel Index Total Protein Albumin TSH Urine WBC (Auto) Salicylates 02/02/17 02/02/17 02/02/17 11:46 11:46 17:47 WBC RBC 2.94 L Hgb 7.5 L Hct 23.0 L MCV 78 L MCH 25 L RDW 16.9 H Plt Count 520 H Lymph % (Auto) [place] % (Auto) Eos % (Auto) Seg Neutrophils % Seg Neuts % (Manual) Lymphocytes % (Manual) Seg Neutrophils # Seg Neutrophils # Man Lymphocytes # (Manual) APTT POC ABG pH ABG pH POC ABG pCO2 POC ABG pO2 ABG pO2 ABG HCO3 ABG Base Excess ABG Hemoglobin VBG pH Oxyhemoglobin Sodium Potassium Chloride Carbon Dioxide BUN Creatinine 0.6 L Glucose 189 H POC Glucose 147 H Lactic Acid Calcium 8.1 L AST ALT Alkaline Phosphatase CK-MB (CK-2) CK-MB (CK-2) Rel Index Total Protein Albumin TSH Urine WBC (Auto) Salicylates 02/02/17 02/03/17 02/03/17 23:32 05:53 11:19 WBC RBC Hgb Hct MCV MCH RDW Plt Count Lymph % (Auto) [place] % (Auto) Eos % (Auto) Seg Neutrophils % Seg Neuts % (Manual) Lymphocytes % (Manual) Seg Neutrophils # Seg Neutrophils # Man Lymphocytes # (Manual) APTT POC ABG pH ABG pH POC ABG pCO2 POC ABG pO2 ABG pO2 ABG HCO3 ABG Base Excess ABG Hemoglobin VBG pH Oxyhemoglobin Sodium Potassium Chloride Carbon Dioxide BUN Creatinine Glucose POC Glucose 176 H 224 H 228 H Lactic Acid Calcium AST ALT Alkaline Phosphatase CK-MB (CK-2) CK-MB (CK-2) Rel Index Total Protein Albumin TSH Urine WBC (Auto) Salicylates 02/03/17 02/03/17 02/04/17 16:59 23:38 05:45 WBC RBC Hgb Hct MCV MCH RDW Plt Count Lymph % (Auto) [place] % (Auto) Eos % (Auto) Seg Neutrophils % Seg Neuts % (Manual) Lymphocytes % (Manual) Seg Neutrophils # Seg Neutrophils # Man Lymphocytes # (Manual) APTT POC ABG pH ABG pH POC ABG pCO2 POC ABG pO2 ABG pO2 ABG HCO3 ABG Base Excess ABG Hemoglobin VBG pH Oxyhemoglobin Sodium Potassium Chloride Carbon Dioxide BUN Creatinine Glucose POC Glucose 189 H 191 H 251 H Lactic Acid Calcium AST ALT Alkaline Phosphatase CK-MB (CK-2) CK-MB (CK-2) Rel Index Total Protein Albumin TSH Urine WBC (Auto) Salicylates 02/04/17 02/04/17 02/05/17 11:20 17:20 00:17 WBC RBC Hgb Hct MCV MCH RDW Plt Count Lymph % (Auto) [place] % (Auto) Eos % (Auto) Seg Neutrophils % Seg Neuts % (Manual) Lymphocytes % (Manual) Seg Neutrophils # Seg Neutrophils # Man Lymphocytes # (Manual) APTT POC ABG pH ABG pH POC ABG pCO2 POC ABG pO2 ABG pO2 ABG HCO3 ABG Base Excess ABG Hemoglobin VBG pH Oxyhemoglobin Sodium Potassium Chloride Carbon Dioxide BUN Creatinine Glucose POC Glucose 243 H 163 H 200 H Lactic Acid Calcium AST ALT Alkaline Phosphatase CK-MB (CK-2) CK-MB (CK-2) Rel Index Total Protein Albumin TSH Urine WBC (Auto) Salicylates 02/05/17 02/05/17 02/05/17 05:38 12:38 16:29 WBC RBC Hgb Hct MCV MCH RDW Plt Count Lymph % (Auto) [place] % (Auto) Eos % (Auto) Seg Neutrophils % Seg Neuts % (Manual) Lymphocytes % (Manual) Seg Neutrophils # Seg Neutrophils # Man Lymphocytes # (Manual) APTT POC ABG pH ABG pH POC ABG pCO2 POC ABG pO2 ABG pO2 ABG HCO3 ABG Base Excess ABG Hemoglobin VBG pH Oxyhemoglobin Sodium Potassium Chloride Carbon Dioxide BUN Creatinine Glucose POC Glucose 248 H 241 H 257 H Lactic Acid Calcium AST ALT Alkaline Phosphatase CK-MB (CK-2) CK-MB (CK-2) Rel Index Total Protein Albumin TSH Urine WBC (Auto) Salicylates 02/05/17 02/06/17 02/06/17 23:56 05:30 11:50 WBC RBC Hgb Hct MCV MCH RDW Plt Count Lymph % (Auto) [place] % (Auto) Eos % (Auto) Seg Neutrophils % Seg Neuts % (Manual) Lymphocytes % (Manual) Seg Neutrophils # Seg Neutrophils # Man Lymphocytes # (Manual) APTT POC ABG pH ABG pH POC ABG pCO2 POC ABG pO2 ABG pO2 ABG HCO3 ABG Base Excess ABG Hemoglobin VBG pH Oxyhemoglobin Sodium Potassium Chloride Carbon Dioxide BUN Creatinine Glucose POC Glucose 258 H 120 H 254 H Lactic Acid Calcium AST ALT Alkaline Phosphatase CK-MB (CK-2) CK-MB (CK-2) Rel Index Total Protein Albumin TSH Urine WBC (Auto) Salicylates 02/06/17 02/06/17 02/07/17 17:11 23:50 05:22 WBC RBC Hgb Hct MCV MCH RDW Plt Count Lymph % (Auto) [place] % (Auto) Eos % (Auto) Seg Neutrophils % Seg Neuts % (Manual) Lymphocytes % (Manual) Seg Neutrophils # Seg Neutrophils # Man Lymphocytes # (Manual) APTT POC ABG pH ABG pH POC ABG pCO2 POC ABG pO2 ABG pO2 ABG HCO3 ABG Base Excess ABG Hemoglobin VBG pH Oxyhemoglobin Sodium Potassium Chloride Carbon Dioxide BUN Creatinine Glucose POC Glucose 149 H 240 H 258 H Lactic Acid Calcium AST ALT Alkaline Phosphatase CK-MB (CK-2) CK-MB (CK-2) Rel Index Total Protein Albumin TSH Urine WBC (Auto) Salicylates 02/07/17 02/07/17 02/07/17 11:15 18:33 23:59 WBC RBC Hgb Hct MCV MCH RDW Plt Count Lymph % (Auto) [place] % (Auto) Eos % (Auto) Seg Neutrophils % Seg Neuts % (Manual) Lymphocytes % (Manual) Seg Neutrophils # Seg Neutrophils # Man Lymphocytes # (Manual) APTT POC ABG pH ABG pH POC ABG pCO2 POC ABG pO2 ABG pO2 ABG HCO3 ABG Base Excess ABG Hemoglobin VBG pH Oxyhemoglobin Sodium Potassium Chloride Carbon Dioxide BUN Creatinine Glucose POC Glucose 239 H 176 H 186 H Lactic Acid Calcium AST ALT Alkaline Phosphatase CK-MB (CK-2) CK-MB (CK-2) Rel Index Total Protein Albumin TSH Urine WBC (Auto) Salicylates 02/08/17 02/08/17 02/08/17 06:15 11:55 16:55 WBC RBC Hgb Hct MCV MCH RDW Plt Count Lymph % (Auto) [place] % (Auto) Eos % (Auto) Seg Neutrophils % Seg Neuts % (Manual) Lymphocytes % (Manual) Seg Neutrophils # Seg Neutrophils # Man Lymphocytes # (Manual) APTT POC ABG pH ABG pH POC ABG pCO2 POC ABG pO2 ABG pO2 ABG HCO3 ABG Base Excess ABG Hemoglobin VBG pH Oxyhemoglobin Sodium Potassium Chloride Carbon Dioxide BUN Creatinine Glucose POC Glucose 195 H 129 H 246 H Lactic Acid Calcium AST ALT Alkaline Phosphatase CK-MB (CK-2) CK-MB (CK-2) Rel Index Total Protein Albumin TSH Urine WBC (Auto) Salicylates 02/08/17 02/09/17 02/09/17 23:51 05:51 07:24 WBC 14.7 H RBC 3.39 L Hgb 8.9 L Hct 26.4 L MCV 78 L MCH 26 L RDW 18.4 H Plt Count 670 H Lymph % (Auto) 11.8 L [place] % (Auto) Eos % (Auto) Seg Neutrophils % 81.2 H Seg Neuts % (Manual) Lymphocytes % (Manual) Seg Neutrophils # 11.9 H Seg Neutrophils # Man Lymphocytes # (Manual) APTT POC ABG pH ABG pH POC ABG pCO2 POC ABG pO2 ABG pO2 ABG HCO3 ABG Base Excess ABG Hemoglobin VBG pH Oxyhemoglobin Sodium Potassium Chloride Carbon Dioxide BUN Creatinine Glucose POC Glucose 262 H 295 H Lactic Acid Calcium AST ALT Alkaline Phosphatase CK-MB (CK-2) CK-MB (CK-2) Rel Index Total Protein Albumin TSH Urine WBC (Auto) Salicylates 02/09/17 02/09/17 02/09/17 07:24 12:08 18:39 WBC RBC Hgb Hct MCV MCH RDW Plt Count Lymph % (Auto) [place] % (Auto) Eos % (Auto) Seg Neutrophils % Seg Neuts % (Manual) Lymphocytes % (Manual) Seg Neutrophils # Seg Neutrophils # Man Lymphocytes # (Manual) APTT POC ABG pH ABG pH POC ABG pCO2 POC ABG pO2 ABG pO2 ABG HCO3 ABG Base Excess ABG Hemoglobin VBG pH Oxyhemoglobin Sodium Potassium Chloride 95.5 L Carbon Dioxide BUN 52 H Creatinine Glucose 277 H POC Glucose 236 H 151 H Lactic Acid Calcium AST ALT Alkaline Phosphatase CK-MB (CK-2) CK-MB (CK-2) Rel Index Total Protein Albumin TSH Urine WBC (Auto) Salicylates 02/10/17 02/10/17 02/10/17 00:01 05:44 11:21 WBC RBC Hgb Hct MCV MCH RDW Plt Count Lymph % (Auto) [place] % (Auto) Eos % (Auto) Seg Neutrophils % Seg Neuts % (Manual) Lymphocytes % (Manual) Seg Neutrophils # Seg Neutrophils # Man Lymphocytes # (Manual) APTT POC ABG pH ABG pH POC ABG pCO2 POC ABG pO2 ABG pO2 ABG HCO3 ABG Base Excess ABG Hemoglobin VBG pH Oxyhemoglobin Sodium Potassium Chloride Carbon Dioxide BUN Creatinine Glucose POC Glucose 210 H 201 H 233 H Lactic Acid Calcium AST ALT Alkaline Phosphatase CK-MB (CK-2) CK-MB (CK-2) Rel Index Total Protein Albumin TSH Urine WBC (Auto) Salicylates 02/10/17 02/10/17 02/11/17 17:29 23:56 05:24 WBC RBC Hgb Hct MCV MCH RDW Plt Count Lymph % (Auto) [place] % (Auto) Eos % (Auto) Seg Neutrophils % Seg Neuts % (Manual) Lymphocytes % (Manual) Seg Neutrophils # Seg Neutrophils # Man Lymphocytes # (Manual) APTT POC ABG pH ABG pH POC ABG pCO2 POC ABG pO2 ABG pO2 ABG HCO3 ABG Base Excess ABG Hemoglobin VBG pH Oxyhemoglobin Sodium Potassium Chloride Carbon Dioxide BUN Creatinine Glucose POC Glucose 167 H 191 H 135 H Lactic Acid Calcium AST ALT Alkaline Phosphatase CK-MB (CK-2) CK-MB (CK-2) Rel Index Total Protein Albumin TSH Urine WBC (Auto) Salicylates 02/11/17 02/11/17 02/11/17 12:25 17:03 23:59 WBC RBC Hgb Hct MCV MCH RDW Plt Count Lymph % (Auto) [place] % (Auto) Eos % (Auto) Seg Neutrophils % Seg Neuts % (Manual) Lymphocytes % (Manual) Seg Neutrophils # Seg Neutrophils # Man Lymphocytes # (Manual) APTT POC ABG pH ABG pH POC ABG pCO2 POC ABG pO2 ABG pO2 ABG HCO3 ABG Base Excess ABG Hemoglobin VBG pH Oxyhemoglobin Sodium Potassium Chloride Carbon Dioxide BUN Creatinine Glucose POC Glucose 275 H 172 H 215 H Lactic Acid Calcium AST ALT Alkaline Phosphatase CK-MB (CK-2) CK-MB (CK-2) Rel Index Total Protein Albumin TSH Urine WBC (Auto) Salicylates 02/12/17 02/12/17 02/12/17 05:39 11:33 17:55 WBC RBC Hgb Hct MCV MCH RDW Plt Count Lymph % (Auto) [place] % (Auto) Eos % (Auto) Seg Neutrophils % Seg Neuts % (Manual) Lymphocytes % (Manual) Seg Neutrophils # Seg Neutrophils # Man Lymphocytes # (Manual) APTT POC ABG pH ABG pH POC ABG pCO2 POC ABG pO2 ABG pO2 ABG HCO3 ABG Base Excess ABG Hemoglobin VBG pH Oxyhemoglobin Sodium Potassium Chloride Carbon Dioxide BUN Creatinine Glucose POC Glucose 261 H 217 H 172 H Lactic Acid Calcium AST ALT Alkaline Phosphatase CK-MB (CK-2) CK-MB (CK-2) Rel Index Total Protein Albumin TSH Urine WBC (Auto) Salicylates 02/13/17 02/13/17 02/13/17 00:25 06:46 11:26 WBC RBC Hgb Hct MCV MCH RDW Plt Count Lymph % (Auto) [place] % (Auto) Eos % (Auto) Seg Neutrophils % Seg Neuts % (Manual) Lymphocytes % (Manual) Seg Neutrophils # Seg Neutrophils # Man Lymphocytes # (Manual) APTT POC ABG pH ABG pH POC ABG pCO2 POC ABG pO2 ABG pO2 ABG HCO3 ABG Base Excess ABG Hemoglobin VBG pH Oxyhemoglobin Sodium Potassium Chloride Carbon Dioxide BUN Creatinine Glucose POC Glucose 207 H 219 H 231 H Lactic Acid Calcium AST ALT Alkaline Phosphatase CK-MB (CK-2) CK-MB (CK-2) Rel Index Total Protein Albumin TSH Urine WBC (Auto) Salicylates 02/13/17 02/13/17 02/14/17 17:12 23:44 05:44 WBC RBC Hgb Hct MCV MCH RDW Plt Count Lymph % (Auto) [place] % (Auto) Eos % (Auto) Seg Neutrophils % Seg Neuts % (Manual) Lymphocytes % (Manual) Seg Neutrophils # Seg Neutrophils # Man Lymphocytes # (Manual) APTT POC ABG pH ABG pH POC ABG pCO2 POC ABG pO2 ABG pO2 ABG HCO3 ABG Base Excess ABG Hemoglobin VBG pH Oxyhemoglobin Sodium Potassium Chloride Carbon Dioxide BUN Creatinine Glucose POC Glucose 190 H 256 H 184 H Lactic Acid Calcium AST ALT Alkaline Phosphatase CK-MB (CK-2) CK-MB (CK-2) Rel Index Total Protein Albumin TSH Urine WBC (Auto) Salicylates 02/14/17 02/14/17 02/14/17 12:21 17:57 23:18 WBC RBC Hgb Hct MCV MCH RDW Plt Count Lymph % (Auto) [place] % (Auto) Eos % (Auto) Seg Neutrophils % Seg Neuts % (Manual) Lymphocytes % (Manual) Seg Neutrophils # Seg Neutrophils # Man Lymphocytes # (Manual) APTT POC ABG pH ABG pH POC ABG pCO2 POC ABG pO2 ABG pO2 ABG HCO3 ABG Base Excess ABG Hemoglobin VBG pH Oxyhemoglobin Sodium Potassium Chloride Carbon Dioxide BUN Creatinine Glucose POC Glucose 233 H 155 H 165 H Lactic Acid Calcium AST ALT Alkaline Phosphatase CK-MB (CK-2) CK-MB (CK-2) Rel Index Total Protein Albumin TSH Urine WBC (Auto) Salicylates 02/15/17 02/15/17 02/15/17 05:33 11:45 17:20 WBC RBC Hgb Hct MCV MCH RDW Plt Count Lymph % (Auto) [place] % (Auto) Eos % (Auto) Seg Neutrophils % Seg Neuts % (Manual) Lymphocytes % (Manual) Seg Neutrophils # Seg Neutrophils # Man Lymphocytes # (Manual) APTT POC ABG pH ABG pH POC ABG pCO2 POC ABG pO2 ABG pO2 ABG HCO3 ABG Base Excess ABG Hemoglobin VBG pH Oxyhemoglobin Sodium Potassium Chloride Carbon Dioxide BUN Creatinine Glucose POC Glucose 239 H 130 H 189 H Lactic Acid Calcium AST ALT Alkaline Phosphatase CK-MB (CK-2) CK-MB (CK-2) Rel Index Total Protein Albumin TSH Urine WBC (Auto) Salicylates 02/16/17 02/16/17 02/16/17 00:14 05:09 12:31 WBC RBC Hgb Hct MCV MCH RDW Plt Count Lymph % (Auto) [place] % (Auto) Eos % (Auto) Seg Neutrophils % Seg Neuts % (Manual) Lymphocytes % (Manual) Seg Neutrophils # Seg Neutrophils # Man Lymphocytes # (Manual) APTT POC ABG pH ABG pH POC ABG pCO2 POC ABG pO2 ABG pO2 ABG HCO3 ABG Base Excess ABG Hemoglobin VBG pH Oxyhemoglobin Sodium Potassium Chloride Carbon Dioxide BUN Creatinine Glucose POC Glucose 197 H 226 H 178 H Lactic Acid Calcium AST ALT Alkaline Phosphatase CK-MB (CK-2) CK-MB (CK-2) Rel Index Total Protein Albumin TSH Urine WBC (Auto) Salicylates 02/16/17 02/16/17 02/17/17 16:35 23:49 05:37 WBC RBC Hgb Hct MCV MCH RDW Plt Count Lymph % (Auto) [place] % (Auto) Eos % (Auto) Seg Neutrophils % Seg Neuts % (Manual) Lymphocytes % (Manual) Seg Neutrophils # Seg Neutrophils # Man Lymphocytes # (Manual) APTT POC ABG pH ABG pH POC ABG pCO2 POC ABG pO2 ABG pO2 ABG HCO3 ABG Base Excess ABG Hemoglobin VBG pH Oxyhemoglobin Sodium Potassium Chloride Carbon Dioxide BUN Creatinine Glucose POC Glucose 174 H 62 L 153 H Lactic Acid Calcium AST ALT Alkaline Phosphatase CK-MB (CK-2) CK-MB (CK-2) Rel Index Total Protein Albumin TSH Urine WBC (Auto) Salicylates 02/17/17 02/17/17 02/17/17 11:39 17:02 22:24 WBC RBC Hgb Hct MCV MCH RDW Plt Count Lymph % (Auto) [place] % (Auto) Eos % (Auto) Seg Neutrophils % Seg Neuts % (Manual) Lymphocytes % (Manual) Seg Neutrophils # Seg Neutrophils # Man Lymphocytes # (Manual) APTT POC ABG pH ABG pH POC ABG pCO2 POC ABG pO2 ABG pO2 ABG HCO3 ABG Base Excess ABG Hemoglobin VBG pH Oxyhemoglobin Sodium Potassium Chloride Carbon Dioxide BUN Creatinine Glucose POC Glucose 231 H 112 H 116 H Lactic Acid Calcium AST ALT Alkaline Phosphatase CK-MB (CK-2) CK-MB (CK-2) Rel Index Total Protein Albumin TSH Urine WBC (Auto) Salicylates 02/18/17 02/19/17 02/19/17 15:34 05:09 07:57 WBC RBC Hgb Hct MCV MCH RDW Plt Count Lymph % (Auto) [place] % (Auto) Eos % (Auto) Seg Neutrophils % Seg Neuts % (Manual) Lymphocytes % (Manual) Seg Neutrophils # Seg Neutrophils # Man Lymphocytes # (Manual) APTT POC ABG pH ABG pH POC ABG pCO2 POC ABG pO2 ABG pO2 ABG HCO3 ABG Base Excess ABG Hemoglobin VBG pH Oxyhemoglobin Sodium Potassium Chloride Carbon Dioxide BUN Creatinine Glucose POC Glucose 215 H 218 H 283 H Lactic Acid Calcium AST ALT Alkaline Phosphatase CK-MB (CK-2) CK-MB (CK-2) Rel Index Total Protein Albumin TSH Urine WBC (Auto) Salicylates 02/19/17 02/19/17 02/20/17 14:49 22:10 05:10 WBC RBC Hgb Hct MCV MCH RDW Plt Count Lymph % (Auto) [place] % (Auto) Eos % (Auto) Seg Neutrophils % Seg Neuts % (Manual) Lymphocytes % (Manual) Seg Neutrophils # Seg Neutrophils # Man Lymphocytes # (Manual) APTT POC ABG pH ABG pH POC ABG pCO2 POC ABG pO2 ABG pO2 ABG HCO3 ABG Base Excess ABG Hemoglobin VBG pH Oxyhemoglobin Sodium Potassium Chloride Carbon Dioxide BUN Creatinine Glucose POC Glucose 290 H 169 H 209 H Lactic Acid Calcium AST ALT Alkaline Phosphatase CK-MB (CK-2) CK-MB (CK-2) Rel Index Total Protein Albumin TSH Urine WBC (Auto) Salicylates 02/20/17 02/20/17 02/21/17 15:05 21:52 02:00 WBC RBC Hgb Hct MCV MCH RDW Plt Count Lymph % (Auto) [place] % (Auto) Eos % (Auto) Seg Neutrophils % Seg Neuts % (Manual) Lymphocytes % (Manual) Seg Neutrophils # Seg Neutrophils # Man Lymphocytes # (Manual) APTT POC ABG pH ABG pH POC ABG pCO2 POC ABG pO2 ABG pO2 ABG HCO3 ABG Base Excess ABG Hemoglobin VBG pH Oxyhemoglobin Sodium Potassium Chloride Carbon Dioxide BUN Creatinine Glucose POC Glucose 172 H 209 H 216 H Lactic Acid Calcium AST ALT Alkaline Phosphatase CK-MB (CK-2) CK-MB (CK-2) Rel Index Total Protein Albumin TSH Urine WBC (Auto) Salicylates 02/21/17 02/21/17 02/21/17 04:54 14:43 17:47 WBC RBC Hgb Hct MCV MCH RDW Plt Count Lymph % (Auto) [place] % (Auto) Eos % (Auto) Seg Neutrophils % Seg Neuts % (Manual) Lymphocytes % (Manual) Seg Neutrophils # Seg Neutrophils # Man Lymphocytes # (Manual) APTT POC ABG pH ABG pH POC ABG pCO2 POC ABG pO2 ABG pO2 ABG HCO3 ABG Base Excess ABG Hemoglobin VBG pH Oxyhemoglobin Sodium Potassium Chloride Carbon Dioxide BUN Creatinine Glucose POC Glucose 227 H 290 H 220 H Lactic Acid Calcium AST ALT Alkaline Phosphatase CK-MB (CK-2) CK-MB (CK-2) Rel Index Total Protein Albumin TSH Urine WBC (Auto) Salicylates 02/21/17 02/22/17 02/22/17 22:02 04:52 15:25 WBC RBC Hgb Hct MCV MCH RDW Plt Count Lymph % (Auto) [place] % (Auto) Eos % (Auto) Seg Neutrophils % Seg Neuts % (Manual) Lymphocytes % (Manual) Seg Neutrophils # Seg Neutrophils # Man Lymphocytes # (Manual) APTT POC ABG pH ABG pH POC ABG pCO2 POC ABG pO2 ABG pO2 ABG HCO3 ABG Base Excess ABG Hemoglobin VBG pH Oxyhemoglobin Sodium Potassium Chloride Carbon Dioxide BUN Creatinine Glucose POC Glucose 246 H 212 H 236 H Lactic Acid Calcium AST ALT Alkaline Phosphatase CK-MB (CK-2) CK-MB (CK-2) Rel Index Total Protein Albumin TSH Urine WBC (Auto) Salicylates 02/22/17 02/23/17 02/23/17 21:33 06:04 10:00 WBC RBC Hgb Hct MCV MCH RDW Plt Count Lymph % (Auto) [place] % (Auto) Eos % (Auto) Seg Neutrophils % Seg Neuts % (Manual) Lymphocytes % (Manual) Seg Neutrophils # Seg Neutrophils # Man Lymphocytes # (Manual) APTT POC ABG pH ABG pH POC ABG pCO2 POC ABG pO2 ABG pO2 ABG HCO3 ABG Base Excess ABG Hemoglobin VBG pH Oxyhemoglobin Sodium Potassium Chloride Carbon Dioxide BUN Creatinine Glucose POC Glucose 255 H 208 H 174 H Lactic Acid Calcium AST ALT Alkaline Phosphatase CK-MB (CK-2) CK-MB (CK-2) Rel Index Total Protein Albumin TSH Urine WBC (Auto) Salicylates 02/23/17 02/23/17 02/23/17 12:52 17:15 21:51 WBC RBC Hgb Hct MCV MCH RDW Plt Count Lymph % (Auto) [place] % (Auto) Eos % (Auto) Seg Neutrophils % Seg Neuts % (Manual) Lymphocytes % (Manual) Seg Neutrophils # Seg Neutrophils # Man Lymphocytes # (Manual) APTT POC ABG pH ABG pH POC ABG pCO2 POC ABG pO2 ABG pO2 ABG HCO3 ABG Base Excess ABG Hemoglobin VBG pH Oxyhemoglobin Sodium Potassium Chloride Carbon Dioxide BUN Creatinine Glucose POC Glucose 203 H 269 H 205 H Lactic Acid Calcium AST ALT Alkaline Phosphatase CK-MB (CK-2) CK-MB (CK-2) Rel Index Total Protein Albumin TSH Urine WBC (Auto) Salicylates 02/24/17 02/24/17 02/24/17 10:23 17:45 21:24 WBC RBC Hgb Hct MCV MCH RDW Plt Count Lymph % (Auto) [place] % (Auto) Eos % (Auto) Seg Neutrophils % Seg Neuts % (Manual) Lymphocytes % (Manual) Seg Neutrophils # Seg Neutrophils # Man Lymphocytes # (Manual) APTT POC ABG pH ABG pH POC ABG pCO2 POC ABG pO2 ABG pO2 ABG HCO3 ABG Base Excess ABG Hemoglobin VBG pH Oxyhemoglobin Sodium Potassium Chloride Carbon Dioxide BUN Creatinine Glucose POC Glucose 280 H 239 H 254 H Lactic Acid Calcium AST ALT Alkaline Phosphatase CK-MB (CK-2) CK-MB (CK-2) Rel Index Total Protein Albumin TSH Urine WBC (Auto) Salicylates 02/25/17 02/25/17 02/25/17 02:12 05:17 14:32 WBC RBC Hgb Hct MCV MCH RDW Plt Count Lymph % (Auto) [place] % (Auto) Eos % (Auto) Seg Neutrophils % Seg Neuts % (Manual) Lymphocytes % (Manual) Seg Neutrophils # Seg Neutrophils # Man Lymphocytes # (Manual) APTT POC ABG pH ABG pH POC ABG pCO2 POC ABG pO2 ABG pO2 ABG HCO3 ABG Base Excess ABG Hemoglobin VBG pH Oxyhemoglobin Sodium Potassium Chloride Carbon Dioxide BUN Creatinine Glucose POC Glucose 296 H 332 H 353 H Lactic Acid Calcium AST ALT Alkaline Phosphatase CK-MB (CK-2) CK-MB (CK-2) Rel Index Total Protein Albumin TSH Urine WBC (Auto) Salicylates 02/25/17 02/26/17 02/26/17 22:14 00:37 05:52 WBC RBC Hgb Hct MCV MCH RDW Plt Count Lymph % (Auto) [place] % (Auto) Eos % (Auto) Seg Neutrophils % Seg Neuts % (Manual) Lymphocytes % (Manual) Seg Neutrophils # Seg Neutrophils # Man Lymphocytes # (Manual) APTT POC ABG pH ABG pH POC ABG pCO2 POC ABG pO2 ABG pO2 ABG HCO3 ABG Base Excess ABG Hemoglobin VBG pH Oxyhemoglobin Sodium Potassium Chloride Carbon Dioxide BUN Creatinine Glucose POC Glucose 201 H 233 H 269 H Lactic Acid Calcium AST ALT Alkaline Phosphatase CK-MB (CK-2) CK-MB (CK-2) Rel Index Total Protein Albumin TSH Urine WBC (Auto) Salicylates 02/26/17 02/26/17 02/26/17 11:48 13:49 21:26 WBC RBC Hgb Hct MCV MCH RDW Plt Count Lymph % (Auto) [place] % (Auto) Eos % (Auto) Seg Neutrophils % Seg Neuts % (Manual) Lymphocytes % (Manual) Seg Neutrophils # Seg Neutrophils # Man Lymphocytes # (Manual) APTT POC ABG pH ABG pH POC ABG pCO2 POC ABG pO2 ABG pO2 ABG HCO3 ABG Base Excess ABG Hemoglobin VBG pH Oxyhemoglobin Sodium Potassium Chloride Carbon Dioxide BUN Creatinine Glucose POC Glucose 333 H 322 H 244 H Lactic Acid Calcium AST ALT Alkaline Phosphatase CK-MB (CK-2) CK-MB (CK-2) Rel Index Total Protein Albumin TSH Urine WBC (Auto) Salicylates 02/27/17 02/27/17 02/27/17 05:27 13:51 21:48 WBC RBC Hgb Hct MCV MCH RDW Plt Count Lymph % (Auto) [place] % (Auto) Eos % (Auto) Seg Neutrophils % Seg Neuts % (Manual) Lymphocytes % (Manual) Seg Neutrophils # Seg Neutrophils # Man Lymphocytes # (Manual) APTT POC ABG pH ABG pH POC ABG pCO2 POC ABG pO2 ABG pO2 ABG HCO3 ABG Base Excess ABG Hemoglobin VBG pH Oxyhemoglobin Sodium Potassium Chloride Carbon Dioxide BUN Creatinine Glucose POC Glucose 217 H 239 H 254 H Lactic Acid Calcium AST ALT Alkaline Phosphatase CK-MB (CK-2) CK-MB (CK-2) Rel Index Total Protein Albumin TSH Urine WBC (Auto) Salicylates 02/28/17 02/28/17 02/28/17 05:38 11:00 19:44 WBC RBC Hgb Hct MCV MCH RDW Plt Count Lymph % (Auto) [place] % (Auto) Eos % (Auto) Seg Neutrophils % Seg Neuts % (Manual) Lymphocytes % (Manual) Seg Neutrophils # Seg Neutrophils # Man Lymphocytes # (Manual) APTT POC ABG pH ABG pH POC ABG pCO2 POC ABG pO2 ABG pO2 ABG HCO3 ABG Base Excess ABG Hemoglobin VBG pH Oxyhemoglobin Sodium Potassium Chloride Carbon Dioxide BUN Creatinine Glucose POC Glucose 325 H 203 H 116 H Lactic Acid Calcium AST ALT Alkaline Phosphatase CK-MB (CK-2) CK-MB (CK-2) Rel Index Total Protein Albumin TSH Urine WBC (Auto) Salicylates 03/01/17 03/01/17 03/01/17 00:08 05:31 12:17 WBC RBC Hgb Hct MCV MCH RDW Plt Count Lymph % (Auto) [place] % (Auto) Eos % (Auto) Seg Neutrophils % Seg Neuts % (Manual) Lymphocytes % (Manual) Seg Neutrophils # Seg Neutrophils # Man Lymphocytes # (Manual) APTT POC ABG pH ABG pH POC ABG pCO2 POC ABG pO2 ABG pO2 ABG HCO3 ABG Base Excess ABG Hemoglobin VBG pH Oxyhemoglobin Sodium Potassium Chloride Carbon Dioxide BUN Creatinine Glucose POC Glucose 202 H 183 H 184 H Lactic Acid Calcium AST ALT Alkaline Phosphatase CK-MB (CK-2) CK-MB (CK-2) Rel Index Total Protein Albumin TSH Urine WBC (Auto) Salicylates 03/02/17 03/02/17 03/02/17 00:12 05:58 18:22 WBC RBC Hgb Hct MCV MCH RDW Plt Count Lymph % (Auto) [place] % (Auto) Eos % (Auto) Seg Neutrophils % Seg Neuts % (Manual) Lymphocytes % (Manual) Seg Neutrophils # Seg Neutrophils # Man Lymphocytes # (Manual) APTT POC ABG pH ABG pH POC ABG pCO2 POC ABG pO2 ABG pO2 ABG HCO3 ABG Base Excess ABG Hemoglobin VBG pH Oxyhemoglobin Sodium Potassium Chloride Carbon Dioxide BUN Creatinine Glucose POC Glucose 117 H 176 H 156 H Lactic Acid Calcium AST ALT Alkaline Phosphatase CK-MB (CK-2) CK-MB (CK-2) Rel Index Total Protein Albumin TSH Urine WBC (Auto) Salicylates 03/02/17 03/03/17 03/03/17 23:51 05:44 11:32 WBC RBC Hgb Hct MCV MCH RDW Plt Count Lymph % (Auto) [place] % (Auto) Eos % (Auto) Seg Neutrophils % Seg Neuts % (Manual) Lymphocytes % (Manual) Seg Neutrophils # Seg Neutrophils # Man Lymphocytes # (Manual) APTT POC ABG pH ABG pH POC ABG pCO2 POC ABG pO2 ABG pO2 ABG HCO3 ABG Base Excess ABG Hemoglobin VBG pH Oxyhemoglobin Sodium Potassium Chloride Carbon Dioxide BUN Creatinine Glucose POC Glucose 211 H 117 H 133 H Lactic Acid Calcium AST ALT Alkaline Phosphatase CK-MB (CK-2) CK-MB (CK-2) Rel Index Total Protein Albumin TSH Urine WBC (Auto) Salicylates 03/03/17 03/03/17 03/04/17 17:43 23:17 05:30 WBC RBC Hgb Hct MCV MCH RDW Plt Count Lymph % (Auto) [place] % (Auto) Eos % (Auto) Seg Neutrophils % Seg Neuts % (Manual) Lymphocytes % (Manual) Seg Neutrophils # Seg Neutrophils # Man Lymphocytes # (Manual) APTT POC ABG pH ABG pH POC ABG pCO2 POC ABG pO2 ABG pO2 ABG HCO3 ABG Base Excess ABG Hemoglobin VBG pH Oxyhemoglobin Sodium Potassium Chloride Carbon Dioxide BUN Creatinine Glucose POC Glucose 206 H 170 H 126 H Lactic Acid Calcium AST ALT Alkaline Phosphatase CK-MB (CK-2) CK-MB (CK-2) Rel Index Total Protein Albumin TSH Urine WBC (Auto) Salicylates 03/04/17 03/04/17 03/05/17 12:17 17:27 05:20 WBC RBC Hgb Hct MCV MCH RDW Plt Count Lymph % (Auto) [place] % (Auto) Eos % (Auto) Seg Neutrophils % Seg Neuts % (Manual) Lymphocytes % (Manual) Seg Neutrophils # Seg Neutrophils # Man Lymphocytes # (Manual) APTT POC ABG pH ABG pH POC ABG pCO2 POC ABG pO2 ABG pO2 ABG HCO3 ABG Base Excess ABG Hemoglobin VBG pH Oxyhemoglobin Sodium Potassium Chloride Carbon Dioxide BUN Creatinine Glucose POC Glucose 135 H 121 H 185 H Lactic Acid Calcium AST ALT Alkaline Phosphatase CK-MB (CK-2) CK-MB (CK-2) Rel Index Total Protein Albumin TSH Urine WBC (Auto) Salicylates 03/05/17 03/06/17 03/06/17 11:50 11:52 17:34 WBC RBC Hgb Hct MCV MCH RDW Plt Count Lymph % (Auto) [place] % (Auto) Eos % (Auto) Seg Neutrophils % Seg Neuts % (Manual) Lymphocytes % (Manual) Seg Neutrophils # Seg Neutrophils # Man Lymphocytes # (Manual) APTT POC ABG pH ABG pH POC ABG pCO2 POC ABG pO2 ABG pO2 ABG HCO3 ABG Base Excess ABG Hemoglobin VBG pH Oxyhemoglobin Sodium Potassium Chloride Carbon Dioxide BUN Creatinine Glucose POC Glucose 116 H 133 H 181 H Lactic Acid Calcium AST ALT Alkaline Phosphatase CK-MB (CK-2) CK-MB (CK-2) Rel Index Total Protein Albumin TSH Urine WBC (Auto) Salicylates 03/07/17 03/07/17 03/07/17 05:21 11:36 17:49 WBC RBC Hgb Hct MCV MCH RDW Plt Count Lymph % (Auto) [place] % (Auto) Eos % (Auto) Seg Neutrophils % Seg Neuts % (Manual) Lymphocytes % (Manual) Seg Neutrophils # Seg Neutrophils # Man Lymphocytes # (Manual) APTT POC ABG pH ABG pH POC ABG pCO2 POC ABG pO2 ABG pO2 ABG HCO3 ABG Base Excess ABG Hemoglobin VBG pH Oxyhemoglobin Sodium Potassium Chloride Carbon Dioxide BUN Creatinine Glucose POC Glucose 159 H 137 H 158 H Lactic Acid Calcium AST ALT Alkaline Phosphatase CK-MB (CK-2) CK-MB (CK-2) Rel Index Total Protein Albumin TSH Urine WBC (Auto) Salicylates 03/08/17 03/08/17 03/08/17 05:51 13:58 23:50 WBC RBC Hgb Hct MCV MCH RDW Plt Count Lymph % (Auto) [place] % (Auto) Eos % (Auto) Seg Neutrophils % Seg Neuts % (Manual) Lymphocytes % (Manual) Seg Neutrophils # Seg Neutrophils # Man Lymphocytes # (Manual) APTT POC ABG pH ABG pH POC ABG pCO2 POC ABG pO2 ABG pO2 ABG HCO3 ABG Base Excess ABG Hemoglobin VBG pH Oxyhemoglobin Sodium Potassium Chloride Carbon Dioxide BUN Creatinine Glucose POC Glucose 122 H 182 H 114 H Lactic Acid Calcium AST ALT Alkaline Phosphatase CK-MB (CK-2) CK-MB (CK-2) Rel Index Total Protein Albumin TSH Urine WBC (Auto) Salicylates 03/09/17 03/09/17 03/09/17 05:21 05:51 05:51 WBC RBC 3.61 L Hgb 9.5 L Hct 28.3 L MCV 79 L MCH 26 L RDW 17.8 H Plt Count Lymph % (Auto) [place] % (Auto) Eos % (Auto) Seg Neutrophils % Seg Neuts % (Manual) Lymphocytes % (Manual) Seg Neutrophils # Seg Neutrophils # Man Lymphocytes # (Manual) APTT POC ABG pH ABG pH POC ABG pCO2 POC ABG pO2 ABG pO2 ABG HCO3 ABG Base Excess ABG Hemoglobin VBG pH Oxyhemoglobin Sodium 134 L Potassium Chloride 95.5 L Carbon Dioxide BUN 33 H Creatinine 0.5 L Glucose 143 H POC Glucose 153 H Lactic Acid Calcium AST ALT Alkaline Phosphatase CK-MB (CK-2) CK-MB (CK-2) Rel Index Total Protein Albumin TSH Urine WBC (Auto) Salicylates 11/03/09/17 03/09/17 12:10 18:13 21:00 WBC RBC Hgb Hct MCV MCH RDW Plt Count Lymph % (Auto) [place] % (Auto) Eos % (Auto) Seg Neutrophils % Seg Neuts % (Manual) Lymphocytes % (Manual) Seg Neutrophils # Seg Neutrophils # Man Lymphocytes # (Manual) APTT POC ABG pH ABG pH POC ABG pCO2 POC ABG pO2 ABG pO2 ABG HCO3 ABG Base Excess ABG Hemoglobin VBG pH Oxyhemoglobin Sodium Potassium Chloride Carbon Dioxide BUN Creatinine Glucose POC Glucose 203 H 221 H 198 H Lactic Acid Calcium AST ALT Alkaline Phosphatase CK-MB (CK-2) CK-MB (CK-2) Rel Index Total Protein Albumin TSH Urine WBC (Auto) Salicylates 03/09/17 03/10/17 03/10/17 23:58 05:09 05:09 WBC RBC Hgb 10.3 L Hct 30.5 L MCV 78 L MCH 26 L RDW 17.9 H Plt Count Lymph % (Auto) [place] % (Auto) 10.0 H Eos % (Auto) 6.0 H Seg Neutrophils % Seg Neuts % (Manual) Lymphocytes % (Manual) Seg Neutrophils # Seg Neutrophils # Man Lymphocytes # (Manual) APTT POC ABG pH ABG pH POC ABG pCO2 POC ABG pO2 ABG pO2 ABG HCO3 ABG Base Excess ABG Hemoglobin VBG pH Oxyhemoglobin Sodium 132 L Potassium Chloride 92.2 L Carbon Dioxide BUN 33 H Creatinine 0.5 L Glucose 50 L POC Glucose 167 H Lactic Acid Calcium AST ALT Alkaline Phosphatase CK-MB (CK-2) CK-MB (CK-2) Rel Index Total Protein Albumin TSH Urine WBC (Auto) Salicylates 03/10/17 03/10/17 03/10/17 05:33 05:34 11:48 WBC RBC Hgb Hct MCV MCH RDW Plt Count Lymph % (Auto) [place] % (Auto) Eos % (Auto) Seg Neutrophils % Seg Neuts % (Manual) Lymphocytes % (Manual) Seg Neutrophils # Seg Neutrophils # Man Lymphocytes # (Manual) APTT POC ABG pH ABG pH POC ABG pCO2 POC ABG pO2 ABG pO2 ABG HCO3 ABG Base Excess ABG Hemoglobin VBG pH Oxyhemoglobin Sodium Potassium Chloride Carbon Dioxide BUN Creatinine Glucose POC Glucose 52 L 53 L 148 H Lactic Acid Calcium AST ALT Alkaline Phosphatase CK-MB (CK-2) CK-MB (CK-2) Rel Index Total Protein Albumin TSH Urine WBC (Auto) Salicylates 03/10/17 03/10/17 03/11/17 17:53 23:47 05:18 WBC RBC Hgb Hct MCV MCH RDW Plt Count Lymph % (Auto) [place] % (Auto) Eos % (Auto) Seg Neutrophils % Seg Neuts % (Manual) Lymphocytes % (Manual) Seg Neutrophils # Seg Neutrophils # Man Lymphocytes # (Manual) APTT POC ABG pH ABG pH POC ABG pCO2 POC ABG pO2 ABG pO2 ABG HCO3 ABG Base Excess ABG Hemoglobin VBG pH Oxyhemoglobin Sodium Potassium Chloride Carbon Dioxide BUN Creatinine Glucose POC Glucose 189 H 398 H 126 H Lactic Acid Calcium AST ALT Alkaline Phosphatase CK-MB (CK-2) CK-MB (CK-2) Rel Index Total Protein Albumin TSH Urine WBC (Auto) Salicylates 03/11/17 03/11/17 03/11/17 11:53 17:30 23:10 WBC RBC Hgb Hct MCV MCH RDW Plt Count Lymph % (Auto) [place] % (Auto) Eos % (Auto) Seg Neutrophils % Seg Neuts % (Manual) Lymphocytes % (Manual) Seg Neutrophils # Seg Neutrophils # Man Lymphocytes # (Manual) APTT POC ABG pH ABG pH POC ABG pCO2 POC ABG pO2 ABG pO2 ABG HCO3 ABG Base Excess ABG Hemoglobin VBG pH Oxyhemoglobin Sodium Potassium Chloride Carbon Dioxide BUN Creatinine Glucose POC Glucose 198 H 142 H 244 H Lactic Acid Calcium AST ALT Alkaline Phosphatase CK-MB (CK-2) CK-MB (CK-2) Rel Index Total Protein Albumin TSH Urine WBC (Auto) Salicylates 03/12/17 03/12/17 03/12/17 04:36 11:49 17:23 WBC RBC Hgb Hct MCV MCH RDW Plt Count Lymph % (Auto) [place] % (Auto) Eos % (Auto) Seg Neutrophils % Seg Neuts % (Manual) Lymphocytes % (Manual) Seg Neutrophils # Seg Neutrophils # Man Lymphocytes # (Manual) APTT POC ABG pH ABG pH POC ABG pCO2 POC ABG pO2 ABG pO2 ABG HCO3 ABG Base Excess ABG Hemoglobin VBG pH Oxyhemoglobin Sodium Potassium Chloride Carbon Dioxide BUN Creatinine Glucose POC Glucose 205 H 197 H 209 H Lactic Acid Calcium AST ALT Alkaline Phosphatase CK-MB (CK-2) CK-MB (CK-2) Rel Index Total Protein Albumin TSH Urine WBC (Auto) Salicylates 03/12/17 03/13/17 03/13/17 23:51 05:32 11:43 WBC RBC Hgb Hct MCV MCH RDW Plt Count Lymph % (Auto) [place] % (Auto) Eos % (Auto) Seg Neutrophils % Seg Neuts % (Manual) Lymphocytes % (Manual) Seg Neutrophils # Seg Neutrophils # Man Lymphocytes # (Manual) APTT POC ABG pH ABG pH POC ABG pCO2 POC ABG pO2 ABG pO2 ABG HCO3 ABG Base Excess ABG Hemoglobin VBG pH Oxyhemoglobin Sodium Potassium Chloride Carbon Dioxide BUN Creatinine Glucose POC Glucose 210 H 154 H 164 H Lactic Acid Calcium AST ALT Alkaline Phosphatase CK-MB (CK-2) CK-MB (CK-2) Rel Index Total Protein Albumin TSH Urine WBC (Auto) Salicylates 03/13/17 03/13/17 03/14/17 17:11 23:26 05:42 WBC RBC Hgb Hct MCV MCH RDW Plt Count Lymph % (Auto) [place] % (Auto) Eos % (Auto) Seg Neutrophils % Seg Neuts % (Manual) Lymphocytes % (Manual) Seg Neutrophils # Seg Neutrophils # Man Lymphocytes # (Manual) APTT POC ABG pH ABG pH POC ABG pCO2 POC ABG pO2 ABG pO2 ABG HCO3 ABG Base Excess ABG Hemoglobin VBG pH Oxyhemoglobin Sodium Potassium Chloride Carbon Dioxide BUN Creatinine Glucose POC Glucose 195 H 240 H 230 H Lactic Acid Calcium AST ALT Alkaline Phosphatase CK-MB (CK-2) CK-MB (CK-2) Rel Index Total Protein Albumin TSH Urine WBC (Auto) Salicylates 03/14/17 03/14/17 03/14/17 14:04 17:34 23:42 WBC RBC Hgb Hct MCV MCH RDW Plt Count Lymph % (Auto) [place] % (Auto) Eos % (Auto) Seg Neutrophils % Seg Neuts % (Manual) Lymphocytes % (Manual) Seg Neutrophils # Seg Neutrophils # Man Lymphocytes # (Manual) APTT POC ABG pH ABG pH POC ABG pCO2 POC ABG pO2 ABG pO2 ABG HCO3 ABG Base Excess ABG Hemoglobin VBG pH Oxyhemoglobin Sodium Potassium Chloride Carbon Dioxide BUN Creatinine Glucose POC Glucose 227 H 186 H 225 H Lactic Acid Calcium AST ALT Alkaline Phosphatase CK-MB (CK-2) CK-MB (CK-2) Rel Index Total Protein Albumin TSH Urine WBC (Auto) Salicylates 03/15/17 03/15/17 03/15/17 05:21 17:13 21:37 WBC RBC Hgb Hct MCV MCH RDW Plt Count Lymph % (Auto) [place] % (Auto) Eos % (Auto) Seg Neutrophils % Seg Neuts % (Manual) Lymphocytes % (Manual) Seg Neutrophils # Seg Neutrophils # Man Lymphocytes # (Manual) APTT POC ABG pH ABG pH POC ABG pCO2 POC ABG pO2 ABG pO2 ABG HCO3 ABG Base Excess ABG Hemoglobin VBG pH Oxyhemoglobin Sodium Potassium Chloride Carbon Dioxide BUN Creatinine Glucose POC Glucose 244 H 203 H 216 H Lactic Acid Calcium AST ALT Alkaline Phosphatase CK-MB (CK-2) CK-MB (CK-2) Rel Index Total Protein Albumin TSH Urine WBC (Auto) Salicylates 03/16/17 03/16/17 03/16/17 05:52 18:07 21:54 WBC RBC Hgb Hct MCV MCH RDW Plt Count Lymph % (Auto) [place] % (Auto) Eos % (Auto) Seg Neutrophils % Seg Neuts % (Manual) Lymphocytes % (Manual) Seg Neutrophils # Seg Neutrophils # Man Lymphocytes # (Manual) APTT POC ABG pH ABG pH POC ABG pCO2 POC ABG pO2 ABG pO2 ABG HCO3 ABG Base Excess ABG Hemoglobin VBG pH Oxyhemoglobin Sodium Potassium Chloride Carbon Dioxide BUN Creatinine Glucose POC Glucose 248 H 254 H 244 H Lactic Acid Calcium AST ALT Alkaline Phosphatase CK-MB (CK-2) CK-MB (CK-2) Rel Index Total Protein Albumin TSH Urine WBC (Auto) Salicylates 03/17/17 03/17/17 03/17/17 07:07 07:42 07:43 WBC RBC Hgb 9.7 L Hct 29.1 L MCV 78 L MCH 26 L RDW 17.4 H Plt Count Lymph % (Auto) [place] % (Auto) Eos % (Auto) Seg Neutrophils % Seg Neuts % (Manual) Lymphocytes % (Manual) Seg Neutrophils # Seg Neutrophils # Man Lymphocytes # (Manual) APTT POC ABG pH ABG pH POC ABG pCO2 POC ABG pO2 ABG pO2 ABG HCO3 ABG Base Excess ABG Hemoglobin VBG pH Oxyhemoglobin Sodium Potassium Chloride 96.6 L Carbon Dioxide BUN 30 H Creatinine 0.5 L Glucose 251 H POC Glucose 222 H Lactic Acid Calcium AST ALT Alkaline Phosphatase CK-MB (CK-2) CK-MB (CK-2) Rel Index Total Protein Albumin TSH Urine WBC (Auto) Salicylates 03/17/17 03/17/17 03/18/17 14:08 21:20 14:24 WBC RBC Hgb Hct MCV MCH RDW Plt Count Lymph % (Auto) [place] % (Auto) Eos % (Auto) Seg Neutrophils % Seg Neuts % (Manual) Lymphocytes % (Manual) Seg Neutrophils # Seg Neutrophils # Man Lymphocytes # (Manual) APTT POC ABG pH ABG pH POC ABG pCO2 POC ABG pO2 ABG pO2 ABG HCO3 ABG Base Excess ABG Hemoglobin VBG pH Oxyhemoglobin Sodium Potassium Chloride Carbon Dioxide BUN Creatinine Glucose POC Glucose 281 H 239 H 195 H Lactic Acid Calcium AST ALT Alkaline Phosphatase CK-MB (CK-2) CK-MB (CK-2) Rel Index Total Protein Albumin TSH Urine WBC (Auto) Salicylates 03/18/17 03/19/17 03/19/17 21:37 04:57 14:23 WBC RBC Hgb Hct MCV MCH RDW Plt Count Lymph % (Auto) [place] % (Auto) Eos % (Auto) Seg Neutrophils % Seg Neuts % (Manual) Lymphocytes % (Manual) Seg Neutrophils # Seg Neutrophils # Man Lymphocytes # (Manual) APTT POC ABG pH ABG pH POC ABG pCO2 POC ABG pO2 ABG pO2 ABG HCO3 ABG Base Excess ABG Hemoglobin VBG pH Oxyhemoglobin Sodium Potassium Chloride Carbon Dioxide BUN Creatinine Glucose POC Glucose 227 H 205 H 277 H Lactic Acid Calcium AST ALT Alkaline Phosphatase CK-MB (CK-2) CK-MB (CK-2) Rel Index Total Protein Albumin TSH Urine WBC (Auto) Salicylates 03/19/17 03/19/17 03/20/17 20:31 21:47 04:55 WBC RBC Hgb Hct MCV MCH RDW Plt Count Lymph % (Auto) [place] % (Auto) Eos % (Auto) Seg Neutrophils % Seg Neuts % (Manual) Lymphocytes % (Manual) Seg Neutrophils # Seg Neutrophils # Man Lymphocytes # (Manual) APTT POC ABG pH ABG pH POC ABG pCO2 POC ABG pO2 ABG pO2 ABG HCO3 ABG Base Excess ABG Hemoglobin VBG pH Oxyhemoglobin Sodium Potassium Chloride Carbon Dioxide BUN Creatinine Glucose POC Glucose 256 H 270 H 202 H Lactic Acid Calcium AST ALT Alkaline Phosphatase CK-MB (CK-2) CK-MB (CK-2) Rel Index Total Protein Albumin TSH Urine WBC (Auto) Salicylates 03/20/17 03/20/17 03/21/17 14:09 21:40 05:09 WBC RBC Hgb Hct MCV MCH RDW Plt Count Lymph % (Auto) [place] % (Auto) Eos % (Auto) Seg Neutrophils % Seg Neuts % (Manual) Lymphocytes % (Manual) Seg Neutrophils # Seg Neutrophils # Man Lymphocytes # (Manual) APTT POC ABG pH ABG pH POC ABG pCO2 POC ABG pO2 ABG pO2 ABG HCO3 ABG Base Excess ABG Hemoglobin VBG pH Oxyhemoglobin Sodium Potassium Chloride Carbon Dioxide BUN Creatinine Glucose POC Glucose 200 H 214 H 233 H Lactic Acid Calcium AST ALT Alkaline Phosphatase CK-MB (CK-2) CK-MB (CK-2) Rel Index Total Protein Albumin TSH Urine WBC (Auto) Salicylates 03/21/17 03/21/17 03/22/17 14:06 21:26 05:43 WBC RBC Hgb Hct MCV MCH RDW Plt Count Lymph % (Auto) [place] % (Auto) Eos % (Auto) Seg Neutrophils % Seg Neuts % (Manual) Lymphocytes % (Manual) Seg Neutrophils # Seg Neutrophils # Man Lymphocytes # (Manual) APTT POC ABG pH ABG pH POC ABG pCO2 POC ABG pO2 ABG pO2 ABG HCO3 ABG Base Excess ABG Hemoglobin VBG pH Oxyhemoglobin Sodium Potassium Chloride Carbon Dioxide BUN Creatinine Glucose POC Glucose 250 H 155 H 251 H Lactic Acid Calcium AST ALT Alkaline Phosphatase CK-MB (CK-2) CK-MB (CK-2) Rel Index Total Protein Albumin TSH Urine WBC (Auto) Salicylates 03/22/17 03/22/17 03/23/17 13:46 21:16 00:23 WBC RBC Hgb Hct MCV MCH RDW Plt Count Lymph % (Auto) [place] % (Auto) Eos % (Auto) Seg Neutrophils % Seg Neuts % (Manual) Lymphocytes % (Manual) Seg Neutrophils # Seg Neutrophils # Man Lymphocytes # (Manual) APTT POC ABG pH ABG pH POC ABG pCO2 POC ABG pO2 ABG pO2 ABG HCO3 ABG Base Excess ABG Hemoglobin VBG pH Oxyhemoglobin Sodium Potassium Chloride Carbon Dioxide BUN Creatinine Glucose POC Glucose 269 H 197 H 126 H Lactic Acid Calcium AST ALT Alkaline Phosphatase CK-MB (CK-2) CK-MB (CK-2) Rel Index Total Protein Albumin TSH Urine WBC (Auto) Salicylates 03/23/17 03/23/17 03/23/17 05:39 14:06 21:39 WBC RBC Hgb Hct MCV MCH RDW Plt Count Lymph % (Auto) [place] % (Auto) Eos % (Auto) Seg Neutrophils % Seg Neuts % (Manual) Lymphocytes % (Manual) Seg Neutrophils # Seg Neutrophils # Man Lymphocytes # (Manual) APTT POC ABG pH ABG pH POC ABG pCO2 POC ABG pO2 ABG pO2 ABG HCO3 ABG Base Excess ABG Hemoglobin VBG pH Oxyhemoglobin Sodium Potassium Chloride Carbon Dioxide BUN Creatinine Glucose POC Glucose 234 H 241 H 248 H Lactic Acid Calcium AST ALT Alkaline Phosphatase CK-MB (CK-2) CK-MB (CK-2) Rel Index Total Protein Albumin TSH Urine WBC (Auto) Salicylates 03/24/17 03/24/17 03/25/17 05:06 21:46 05:38 WBC RBC Hgb Hct MCV MCH RDW Plt Count Lymph % (Auto) [place] % (Auto) Eos % (Auto) Seg Neutrophils % Seg Neuts % (Manual) Lymphocytes % (Manual) Seg Neutrophils # Seg Neutrophils # Man Lymphocytes # (Manual) APTT POC ABG pH ABG pH POC ABG pCO2 POC ABG pO2 ABG pO2 ABG HCO3 ABG Base Excess ABG Hemoglobin VBG pH Oxyhemoglobin Sodium Potassium Chloride Carbon Dioxide BUN Creatinine Glucose POC Glucose 232 H 276 H 242 H Lactic Acid Calcium AST ALT Alkaline Phosphatase CK-MB (CK-2) CK-MB (CK-2) Rel Index Total Protein Albumin TSH Urine WBC (Auto) Salicylates 03/25/17 03/25/17 03/26/17 14:30 23:14 13:53 WBC RBC Hgb Hct MCV MCH RDW Plt Count Lymph % (Auto) [place] % (Auto) Eos % (Auto) Seg Neutrophils % Seg Neuts % (Manual) Lymphocytes % (Manual) Seg Neutrophils # Seg Neutrophils # Man Lymphocytes # (Manual) APTT POC ABG pH ABG pH POC ABG pCO2 POC ABG pO2 ABG pO2 ABG HCO3 ABG Base Excess ABG Hemoglobin VBG pH Oxyhemoglobin Sodium Potassium Chloride Carbon Dioxide BUN Creatinine Glucose POC Glucose 246 H 208 H 195 H Lactic Acid Calcium AST ALT Alkaline Phosphatase CK-MB (CK-2) CK-MB (CK-2) Rel Index Total Protein Albumin TSH Urine WBC (Auto) Salicylates 03/26/17 03/27/17 03/27/17 21:58 05:18 14:57 WBC RBC Hgb Hct MCV MCH RDW Plt Count Lymph % (Auto) [place] % (Auto) Eos % (Auto) Seg Neutrophils % Seg Neuts % (Manual) Lymphocytes % (Manual) Seg Neutrophils # Seg Neutrophils # Man Lymphocytes # (Manual) APTT POC ABG pH ABG pH POC ABG pCO2 POC ABG pO2 ABG pO2 ABG HCO3 ABG Base Excess ABG Hemoglobin VBG pH Oxyhemoglobin Sodium Potassium Chloride Carbon Dioxide BUN Creatinine Glucose POC Glucose 241 H 199 H 269 H Lactic Acid Calcium AST ALT Alkaline Phosphatase CK-MB (CK-2) CK-MB (CK-2) Rel Index Total Protein Albumin TSH Urine WBC (Auto) Salicylates 03/27/17 03/28/17 03/28/17 21:33 13:52 21:29 WBC RBC Hgb Hct MCV MCH RDW Plt Count Lymph % (Auto) [place] % (Auto) Eos % (Auto) Seg Neutrophils % Seg Neuts % (Manual) Lymphocytes % (Manual) Seg Neutrophils # Seg Neutrophils # Man Lymphocytes # (Manual) APTT POC ABG pH ABG pH POC ABG pCO2 POC ABG pO2 ABG pO2 ABG HCO3 ABG Base Excess ABG Hemoglobin VBG pH Oxyhemoglobin Sodium Potassium Chloride Carbon Dioxide BUN Creatinine Glucose POC Glucose 214 H 243 H 286 H Lactic Acid Calcium AST ALT Alkaline Phosphatase CK-MB (CK-2) CK-MB (CK-2) Rel Index Total Protein Albumin TSH Urine WBC (Auto) Salicylates 03/29/17 03/29/17 03/29/17 04:32 04:32 13:58 WBC RBC Hgb 10.6 L Hct 32.9 L MCV 78 L MCH 25 L RDW 17.6 H Plt Count Lymph % (Auto) 38.0 H [place] % (Auto) 9.7 H Eos % (Auto) Seg Neutrophils % Seg Neuts % (Manual) Lymphocytes % (Manual) Seg Neutrophils # Seg Neutrophils # Man Lymphocytes # (Manual) APTT POC ABG pH ABG pH POC ABG pCO2 POC ABG pO2 ABG pO2 ABG HCO3 ABG Base Excess ABG Hemoglobin VBG pH Oxyhemoglobin Sodium 132 L Potassium Chloride 94.0 L Carbon Dioxide BUN 28 H Creatinine 0.5 L Glucose 236 H POC Glucose 171 H Lactic Acid Calcium AST ALT 71 H Alkaline Phosphatase 391 H CK-MB (CK-2) CK-MB (CK-2) Rel Index Total Protein 8.3 H Albumin 2.9 L TSH Urine WBC (Auto) Salicylates 03/29/17 03/30/17 03/30/17 20:59 06:07 11:52 WBC RBC Hgb Hct MCV MCH RDW Plt Count Lymph % (Auto) [place] % (Auto) Eos % (Auto) Seg Neutrophils % Seg Neuts % (Manual) Lymphocytes % (Manual) Seg Neutrophils # Seg Neutrophils # Man Lymphocytes # (Manual) APTT POC ABG pH ABG pH POC ABG pCO2 POC ABG pO2 ABG pO2 ABG HCO3 ABG Base Excess ABG Hemoglobin VBG pH Oxyhemoglobin Sodium Potassium Chloride Carbon Dioxide BUN Creatinine Glucose POC Glucose 215 H 259 H 197 H Lactic Acid Calcium AST ALT Alkaline Phosphatase CK-MB (CK-2) CK-MB (CK-2) Rel Index Total Protein Albumin TSH Urine WBC (Auto) Salicylates 03/30/17 03/31/17 03/31/17 21:34 05:42 14:34 WBC RBC Hgb Hct MCV MCH RDW Plt Count Lymph % (Auto) [place] % (Auto) Eos % (Auto) Seg Neutrophils % Seg Neuts % (Manual) Lymphocytes % (Manual) Seg Neutrophils # Seg Neutrophils # Man Lymphocytes # (Manual) APTT POC ABG pH ABG pH POC ABG pCO2 POC ABG pO2 ABG pO2 ABG HCO3 ABG Base Excess ABG Hemoglobin VBG pH Oxyhemoglobin Sodium Potassium Chloride Carbon Dioxide BUN Creatinine Glucose POC Glucose 207 H 184 H 213 H Lactic Acid Calcium AST ALT Alkaline Phosphatase CK-MB (CK-2) CK-MB (CK-2) Rel Index Total Protein Albumin TSH Urine WBC (Auto) Salicylates 03/31/17 21:32 WBC RBC Hgb Hct MCV MCH RDW Plt Count Lymph % (Auto) [place] % (Auto) Eos % (Auto) Seg Neutrophils % Seg Neuts % (Manual) Lymphocytes % (Manual) Seg Neutrophils # Seg Neutrophils # Man Lymphocytes # (Manual) APTT POC ABG pH ABG pH POC ABG pCO2 POC ABG pO2 ABG pO2 ABG HCO3 ABG Base Excess ABG Hemoglobin VBG pH Oxyhemoglobin Sodium Potassium Chloride Carbon Dioxide BUN Creatinine Glucose POC Glucose 249 H Lactic Acid Calcium AST ALT Alkaline Phosphatase CK-MB (CK-2) CK-MB (CK-2) Rel Index Total Protein Albumin TSH Urine WBC (Auto) Salicylates
[2017-04-01] MEDS: HumuLIN R SUB-Q SCH ×3 (05:57→21:36)
[2017-04-01] MEDS: SYNTHROID PO SCH (05:58)
[2017-04-01] MEDS: PEPCID PO SCH ×2 (10:29→21:35)
[2017-04-01] MEDS: TYLENOL FEEDTUBE PRN (10:30)
[2017-04-01] MEDS: HEPARIN SUB-Q SCH ×2 (10:30→21:35)
[2017-04-02] MEDS: SYNTHROID PO SCH (05:34)
[2017-04-02] MEDS: HumuLIN R SUB-Q SCH ×2 (05:35→14:59)
[2017-04-02] MEDS: HEPARIN SUB-Q SCH (09:48)
[2017-04-02] MEDS: PEPCID PO SCH (09:48)
[2017-04-03] MEDS: HEPARIN SUB-Q SCH ×3 (00:01→21:42)
[2017-04-03] MEDS: PEPCID PO SCH ×3 (00:03→21:42)
[2017-04-03] MEDS: SYNTHROID PO SCH (08:01)
[2017-04-03] MEDS: HumuLIN R SUB-Q SCH ×4 (08:01→21:42)
--- NOTE | 2017-04-03 10:38 | Progress Note ---
Assessment and Plan Assessment and plan: 51 YO Male with CKD,HTN, DM presents to ED for evaluation. Pt unable to provide history. Pt history taken from ED staff, and medical records. Pt found down and unresponsive by his neighbor, who subsequently called EMS. Upon arrival, patient found unresponsive on the floor with a serum glucose of 21, and covered with ants with insulin syringes around him and a bottle of atenolol which still had many pills remaining, patient has a known history of alcohol abuse and delirium tremens. The patient was administered D5 approximate 500 mls during transport without change in mental status/level of consciousness. Pt seen and evaluated in ED was was found to be unable to protect his airway. Pt intubated and placed on vent support. Pt found to have evidence of hypothyroidism. he was started on Synthroid. He has since been in the ICU. The patient continued to deteriorate. He is in this grade 4 coma, brain imaging does not show any reversible cause. The patient remains in a persistent vegetative states. Sepsis has been ruled out. nursing services manager try to locate family, even spoke to the family who he lives with. They themselves were unaware of any family members. After ethics committee meeting on the patient. The decision was made to make him DO NOT RESUSCITATE and to transfer him to hospice. Given his very poor prognosis and poor likelihood of recovery. It was decided that was not his best interest to get trach and PEG. Therefore he'll be transferred to the hospice intubated, at this time he is COMFORT CARE/DNR as per Ethics committee recommendation. Diagnosis Hypoglycemic brain injury Persistent vegetative state Metabolic encephalopathy Hypoglycemia/hypothermia Acute respiratory failure mechanical ventilator greater than 96 hours Sepsis ruled out, UTI ruled out hyponatremia, Hypothyroidism DNR- awaiting hospice placement, awaiting guardianship from the state to give consent, as has no family to give consent The high probability of a clinically significant, sudden or life threatening deterioration of the [neurologic, respiratory and CV] system(s) required my full and direct attention, intervention and personal management. The aggregate critical care time was [33] minutes. This time is in addition to time spent performing reported procedures but includes the following: [] Data Review and interpretation [] Patient assessment and monitoring of vital signs [] Documentation [] Medication orders and management History Interval history: patient remains comatose, no movement of extremities no fevers, no vomiting, no respiratory distress, no diarrhea Hospitalist Physical - Physical exam Narrative exam: General: comatose HEENT: Moist mucous membranes, , no lymphadenopathy Neck: supple Cardiac: S1-S2 heard Lungs: mech ventilated breath sounds Abdomen: soft , nontender, nondistended, bowel sounds positive Extremities: no edema clubbing or cyanosis Skin: no rash or lesions Neurologic: opens eyes, has corneal reflex, No gag reflex, pupils minimally responsive, no response to deep painful stimuli - Constitutional Vitals: Temp Pulse Resp BP Pulse Ox 99.7 F H 70 26 H 118/77 100 04/03/17 08:00 04/03/17 07:51 04/03/17 07:51 04/03/17 07:51 04/03/17 07:51 General appearance: Present: no acute distress, well-nourished Results - Labs CBC & Chem 7: 03/29/17 04:32 03/29/17 04:32 Labs: Laboratory Last Values WBC 6.3 K/mm3 (4.5-11.0) 03/29/17 04:32 RBC 4.23 M/mm3 (3.65-5.03) 03/29/17 04:32 Hgb 10.6 gm/dl (11.8-15.2) L 03/29/17 04:32 Hct 32.9 % (35.5-45.6) L 03/29/17 04:32 MCV 78 fl (84-94) L 03/29/17 04:32 MCH 25 pg (28-32) L 03/29/17 04:32 MCHC 32 % (32-34) 03/29/17 04:32 RDW 17.6 % (13.2-15.2) H 03/29/17 04:32 Plt Count 355 K/mm3 (140-440) 03/29/17 04:32 Lymph % (Auto) 38.0 % (13.4-35.0) H 03/29/17 04:32 [place] % (Auto) 9.7 % (0.0-7.3) H 03/29/17 04:32 Eos % (Auto) 3.1 % (0.0-4.3) 03/29/17 04:32 Baso % (Auto) 0.7 % (0.0-1.8) 03/29/17 04:32 Lymph # 2.4 K/mm3 (1.2-5.4) 03/29/17 04:32 [place] # 0.6 K/mm3 (0.0-0.8) 03/29/17 04:32 Eos # 0.2 K/mm3 (0.0-0.4) 03/29/17 04:32 Baso # 0.0 K/mm3 (0.0-0.1) 03/29/17 04:32 Add Manual Diff Complete 01/10/17 04:30 Total Counted 100 01/10/17 04:30 Seg Neutrophils % 48.5 % (40.0-70.0) 03/29/17 04:32 Seg Neuts % (Manual) 88.0 % (40.0-70.0) H 01/10/17 04:30 Band Neutrophils % 7.0 % 01/10/17 04:30 Lymphocytes % (Manual) 4.0 % (13.4-35.0) L 01/10/17 04:30 Reactive Lymphs % (Man) 0 % 01/10/17 04:30 Monocytes % (Manual) 1.0 % (0.0-7.3) 01/10/17 04:30 Eosinophils % (Manual) 0 % (0.0-4.3) 01/10/17 04:30 Basophils % (Manual) 0 % (0.0-1.8) 01/10/17 04:30 Metamyelocytes % 0 % 01/10/17 04:30 Myelocytes % 0 % 01/10/17 04:30 Promyelocytes % 0 % 01/10/17 04:30 Blast Cells % 0 % 01/10/17 04:30 Nucleated RBC % Not Reportable 01/10/17 04:30 Seg Neutrophils # 3.0 K/mm3 (1.8-7.7) 03/29/17 04:32 Seg Neutrophils # Man 21.2 K/mm3 (1.8-7.7) H 01/10/17 04:30 Band Neutrophils # 1.7 K/mm3 01/10/17 04:30 Lymphocytes # (Manual) 1.0 K/mm3 (1.2-5.4) L 01/10/17 04:30 Abs React Lymphs (Man) 0.0 K/mm3 01/10/17 04:30 Monocytes # (Manual) 0.2 K/mm3 (0.0-0.8) 01/10/17 04:30 Eosinophils # (Manual) 0.0 K/mm3 (0.0-0.4) 01/10/17 04:30 Basophils # (Manual) 0.0 K/mm3 (0.0-0.1) 01/10/17 04:30 Metamyelocytes # 0.0 K/mm3 01/10/17 04:30 Myelocytes # 0.0 K/mm3 01/10/17 04:30 Promyelocytes # 0.0 K/mm3 01/10/17 04:30 Blast Cells # 0.0 K/mm3 01/10/17 04:30 WBC Morphology Not Reportable 01/10/17 04:30 Hypersegmented Neuts Not Reportable 01/10/17 04:30 Hyposegmented Neuts Not Reportable 01/10/17 04:30 Hypogranular Neuts Not Reportable 01/10/17 04:30 Smudge Cells Not Reportable 01/10/17 04:30 Toxic Granulation Not Reportable 01/10/17 04:30 Toxic Vacuolation Not Reportable 01/10/17 04:30 Dohle Bodies Not Reportable 01/10/17 04:30 Pelger-Huet Anomaly Not Reportable 01/10/17 04:30 [place] Rods Not Reportable 01/10/17 04:30 Platelet Estimate Consistent w auto 01/10/17 04:30 Clumped Platelets Not Reportable 01/10/17 04:30 Plt Clumps, EDTA Not Reportable 01/10/17 04:30 Large Platelets Not Reportable 01/10/17 04:30 Giant Platelets Not Reportable 01/10/17 04:30 Platelet Satelliting Not Reportable 01/10/17 04:30 Plt Morphology Comment Not Reportable 01/10/17 04:30 RBC Morphology Not Reportable 01/10/17 04:30 Dimorphic RBCs Not Reportable 01/10/17 04:30 Polychromasia Not Reportable 01/10/17 04:30 Hypochromasia 1+ 01/10/17 04:30 Poikilocytosis Not Reportable 01/10/17 04:30 Anisocytosis Not Reportable 01/10/17 04:30 Microcytosis Not Reportable 01/10/17 04:30 Macrocytosis Not Reportable 01/10/17 04:30 Spherocytes Not Reportable 01/10/17 04:30 Pappenheimer Bodies Not Reportable 01/10/17 04:30 Sickle Cells Not Reportable 01/10/17 04:30 Target Cells Not Reportable 01/10/17 04:30 Tear Drop Cells Not Reportable 01/10/17 04:30 Ovalocytes Not Reportable 01/10/17 04:30 Helmet Cells Not Reportable 01/10/17 04:30 [place] Bodies Not Reportable 01/10/17 04:30 [place] Rings Not Reportable 01/10/17 04:30 [place] Cells Not Reportable 01/10/17 04:30 Bite Cells Not Reportable 01/10/17 04:30 Crenated Cell Not Reportable 01/10/17 04:30 Elliptocytes Not Reportable 01/10/17 04:30 Acanthocytes (Spur) Not Reportable 01/10/17 04:30 Rouleaux Not Reportable 01/10/17 04:30 Hemoglobin C Crystals Not Reportable 01/10/17 04:30 Schistocytes Not Reportable 01/10/17 04:30 Malaria parasites Not Reportable 01/10/17 04:30 Kyle Bodies Not Reportable 01/10/17 04:30 Hem Pathologist Commnt No 01/10/17 04:30 PT 14.1 Sec. (12.2-14.9) 01/17/17 04:10 INR 1.04 (0.87-1.13) 01/17/17 04:10 APTT 36.6 Sec. (24.2-36.6) 01/17/17 04:10 POC ABG pH 7.442 (7.35-7.45) 01/31/17 18:55 ABG pH 7.420 pH Units (7.350-7.450) 01/17/17 04:35 POC ABG pCO2 32.8 (35-45) L 01/31/17 18:55 ABG pCO2 34.5 mm Hg 01/17/17 04:35 POC ABG pO2 82 (80-105) 01/31/17 18:55 ABG pO2 160.3 mm Hg (80.0-90.0) H 01/17/17 04:35 POC ABG HCO3 22.4 01/31/17 18:55 ABG HCO3 21.9 mmol/L (20.0-26.0) 01/17/17 04:35 POC ABG Total CO2 23 01/31/17 18:55 POC ABG O2 Sat 97 01/31/17 18:55 ABG O2 Saturation 99.0 % (95.0-99.0) 01/17/17 04:35 ABG O2 Content 11.1 (0.0-44) 01/17/17 04:35 POC ABG Base Excess -2 01/31/17 18:55 ABG Base Excess -2.3 mmol/L (-2.0-3.0) L 01/17/17 04:35 ABG Hemoglobin 7.9 gm/dl (14.0-18.0) L 01/17/17 04:35 ABG Carboxyhemoglobin 1.5 % (0.0-5.0) 01/17/17 04:35 ABG Methemoglobin 0.5 % (0.0-1.5) 01/17/17 04:35 VBG pH 7.284 (7.320-7.420) L 01/09/17 10:16 Oxyhemoglobin 97.1 % (95.0-99.0) 01/17/17 04:35 FiO2 25 % 01/31/17 18:55 Sodium 132 mmol/L (137-145) L 03/29/17 04:32 Potassium 4.5 mmol/L (3.6-5.0) 03/29/17 04:32 Chloride 94.0 mmol/L (98-107) L 03/29/17 04:32 Carbon Dioxide 26 mmol/L (22-30) 03/29/17 04:32 Anion Gap 17 mmol/L 03/29/17 04:32 BUN 28 mg/dL (9-20) H 03/29/17 04:32 Creatinine 0.5 mg/dL (0.8-1.5) L 03/29/17 04:32 Estimated GFR > 60 ml/min 03/29/17 04:32 BUN/Creatinine Ratio 56 % 03/29/17 04:32 Glucose 236 mg/dL (75-100) H 03/29/17 04:32 POC Glucose 256 (70-105) H 04/03/17 04:49 Lactic Acid 0.80 mmol/L (0.7-2.0) 01/30/17 11:49 Calcium 9.2 mg/dL (8.4-10.2) 03/29/17 04:32 Phosphorus 3.10 mg/dL (2.5-4.5) 03/29/17 04:32 Magnesium 1.90 mg/dL (1.7-2.3) 03/29/17 04:32 Total Bilirubin 0.30 mg/dL (0.1-1.2) 03/29/17 04:32 AST 40 units/L (5-40) 03/29/17 04:32 ALT 71 units/L (7-56) H 03/29/17 04:32 Alkaline Phosphatase 391 units/L (35-129) H 03/29/17 04:32 Ammonia 35.0 umol/L (25-60) 01/09/17 10:16 Total Creatine Kinase 135 units/L (55-170) 01/09/17 10:16 CK-MB (CK-2) 7.1 ng/mL (0.0-4.0) H 01/09/17 10:16 CK-MB (CK-2) Rel Index 5.2 (0-4) H 01/09/17 10:16 Troponin T < 0.010 ng/mL (0.00-0.029) 01/09/17 10:16 NT-Pro-B Natriuret Pep 602.9 pg/mL (0-900) 01/09/17 10:16 Total Protein 8.3 g/dL (6.3-8.2) H 03/29/17 04:32 Albumin 2.9 g/dL (3.9-5) L 03/29/17 04:32 Albumin/Globulin Ratio 0.5 % 03/29/17 04:32 TSH 52.800 mlU/mL (0.270-4.200) H 01/09/17 10:16 Free T4 0.78 ng/dL (0.76-1.46) 01/09/17 10:16 Total Cortisol 54.8 mcg/dL () 01/09/17 16:19 Urine Color Yellow (Yellow) 01/28/17 17:52 Urine Turbidity Clear (Clear) 01/28/17 17:52 Urine pH 6.0 (5.0-7.0) 10/20/17 17:52 Ur Specific [place] 1.016 (1.003-1.030) 01/28/17 17:52 Urine Protein 100 mg/dl mg/dL (Negative) 01/28/17 17:52 Urine Glucose (UA) >=500 mg/dL (Negative) 01/28/17 17:52 Urine Ketones Neg mg/dL (Negative) 01/28/17 17:52 Urine Blood Sm (Negative) 01/28/17 17:52 Urine Nitrite Neg (Negative) 01/28/17 17:52 Urine Bilirubin Neg (Negative) 01/28/17 17:52 Urine Urobilinogen < 2.0 mg/dL (<2.0) 01/28/17 17:52 Ur Leukocyte Esterase Lg (Negative) 01/28/17 17:52 Urine WBC (Auto) > 182.0 /HPF (0.0-6.0) H 01/28/17 17:52 Urine RBC (Auto) 113.0 /HPF (0.0-6.0) 01/28/17 17:52 Urine Bacteria (Auto) 2+ /HPF (Negative) 01/28/17 17:52 Urine WBC Clumps 3+ /HPF 01/28/17 17:52 Urine Mucus Few /HPF 01/14/17 14:07 Urine Yeast (Budding) 3+ /HPF 01/14/17 14:07 Salicylates < 0.3 mg/dL (2.8-20.0) L 01/09/17 10:16 Urine Opiates Screen Presumptive negative 01/09/17 10:23 Urine Methadone Screen Presumptive negative 01/09/17 10:23 Acetaminophen < 15.0 ug/mL (10.0-30.0) 01/09/17 10:16 Ur Barbiturates Screen Presumptive negative 01/09/17 10:23 Ur Phencyclidine Scrn Presumptive negative 01/09/17 10:23 Ur Amphetamines Screen Presumptive negative 01/09/17 10:23 U Benzodiazepines Scrn Presumptive negative 01/09/17 10:23 Urine Cocaine Screen Presumptive negative 01/09/17 10:23 U Marijuana (THC) Screen Presumptive negative 01/09/17 10:23 Drugs of Abuse Note Disclamer 01/09/17 10:23 Plasma/Serum Alcohol < 0.01 gm% (0-0.07) 01/09/17 10:16
[2017-04-04] MEDS: HumuLIN R SUB-Q SCH ×3 (05:29→22:48)
[2017-04-04] MEDS: SYNTHROID PO SCH (05:29)
[2017-04-04] MEDS: PEPCID PO SCH ×2 (09:21→22:48)
[2017-04-04] MEDS: HEPARIN SUB-Q SCH ×2 (09:21→22:48)
--- NOTE | 2017-04-04 12:50 | Progress Note ---
Assessment and Plan Hypoglycemic brain injury Persistent vegetative state Metabolic encephalopathy Hypoglycemia/hypothermia, resolved Acute respiratory failure mechanical ventilator greater than 96 hours UTI with klebsiella, treated ( Cx + on 01/28), then with ESBL likely colonization hyponatremia, Hypothyroidism IDDM Hypertension low grade Fever, resolved - Cont supportive care and current medication. Monitor vitals, repeat cx on - no growth - increased dose of long acting insulin to 15 unit - Patient is DNR- needs guardianship from the state to give consent for further management, as has no family to give consent. Brief History: 51 YO Male with CKD,HTN, DM presents to ED after found down and unresponsive by his neighbor, who subsequently called EMS. Upon arrival, patient found unresponsive on the floor with a serum glucose of 21, patient has a known history of alcohol abuse and delirium tremens. The patient was administered D5 approximate 500 mls during transport without change in mental status/level of consciousness. Pt seen and evaluated in ED was was found to be unable to protect his airway. Pt intubated and placed on vent support. Pt found to have evidence of hypothyroidism. He was started on Synthroid. He has since been in the ICU. director of clinical services try to locate family, even spoke to the family who he lives with. They themselves were unaware of any family members. After ethics committee meeting on the patient. The decision was made to make him DO NOT RESUSCITATE and to transfer him to hospice. Given his very poor prognosis and poor likelihood of recovery. It was decided that was not his best interest to get trach and PEG. Therefore he'll be transferred to the hospice intubated. Now Awaiting on court ordered /state guardianship. Hospitalist Physical - Physical exam Narrative exam: General: comatose HEENT: Moist mucous membranes, , no lymphadenopathy Neck: supple Cardiac: S1-S2 heard Lungs: mechnical ventilated breath sounds Abdomen: soft , nontender, nondistended, bowel sounds positive Extremities: no edema clubbing or cyanosis Skin: no rash or lesions Neurologic: opens eyes, no response to deep painful stimuli, does not follow commend Subjective Date of service: 04/04/17 Principal diagnosis: Acute respiratory failure,encephalopathy Interval history: patient remains comatose, no movement of extremities afebrile o/n, no clinical change Objective - Constitutional Vitals: Vital Signs - 12hr 04/04/17 04/04/17 04/04/17 02:01 03:02 03:36 Temperature 98.5 F Pulse Rate 70 71 Pulse Rate [ From Monitor] Respiratory 17 Rate Blood Pressure 146/89 146/89 O2 Sat by Pulse 100 100 Oximetry 04/04/17 04/04/17 04/04/17 04:00 06:01 08:00 Temperature 98.6 F Pulse Rate 71 68 Pulse Rate [ 62 From Monitor] Respiratory 18 15 15 Rate Blood Pressure 146/89 146/89 O2 Sat by Pulse 100 100 100 Oximetry 04/04/17 04/04/17 09:50 10:00 Temperature Pulse Rate 65 66 Pulse Rate [ From Monitor] Respiratory Rate Blood Pressure 114/69 O2 Sat by Pulse 100 Oximetry - Labs CBC & Chem 7: 03/29/17 04:32 03/29/17 04:32 Labs: Abnormal lab results 04/03/17 04/03/17 04/04/17 Range/Units 14:12 21:11 05:20 POC Glucose 197 H 166 H 228 H (70-105)
--- NOTE | 2017-04-04 16:14 | Progress Note ---
Assessment and Plan 51 y/o male found down, concern for sepsis and now encephalopathic requiring mechanical ventilation. No new recommendations for today. Please see below. 1. continue supportive care 2. 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 I am aware that he is an AND but trach will not fix this problem and is not in my professional opinion the right thing to do for this patient. Most likely he will never be weaned from the vent and will remain in a persistent vegatative state. 3. Overall prognosis continues to be poor. 4. Will not check labs 5. Vitals should be qshift 6. This patient's possibility of awakening from this persistent vegatative is unlikely. The current status is that there has been paper work filed to obtain guardianship so that end of life decisions can be made. Supportive care is reasonable but checking daily labs and doing other invasive things to this patient I do not feel is morally and ethically appropriate. Subjective Date of service: 04/04/17 Principal diagnosis: Acute respiratory failure,encephalopathy Interval history: Patient remained unresponsive and intubated on mechanical ventilator. No change Objective Vital Signs - 12hr 04/04/17 04/04/17 04/04/17 06:01 08:00 09:50 Temperature 98.6 F Pulse Rate 68 63 65 Pulse Rate [ 62 From Monitor] Respiratory 15 15 Rate Blood Pressure 146/89 146/89 114/69 O2 Sat by Pulse 100 100 100 Oximetry 04/04/17 04/04/17 04/04/17 10:00 12:00 14:01 Temperature Pulse Rate 66 69 72 Pulse Rate [ From Monitor] Respiratory 16 14 18 Rate Blood Pressure 114/69 114/69 114/69 O2 Sat by Pulse 100 100 100 Oximetry Constitutional: no acute distress, other Eyes: non-icteric ENT: oropharynx moist Neck: supple, no JVD Effort: normal Ascultation: Bilateral: clear, diminished breath sounds Cardiovascular: regular rate and rhythm Gastrointestinal: normoactive bowel sounds, soft, non-tender, non-distended Integumentary: normal Extremities: no cyanosis, no edema, pink and warm Neurologic: pupils equal and round, other (minimal responsive,no posturing, otherwise no changes, not following any commands. ) Psychiatric: other (unable to obtain) CBC and BMP: 03/29/17 04:32 03/29/17 04:32 ABG, PT/INR, D-dimer: ABG POC ABG pH 7.442 (7.35-7.45) 01/31/17 18:55 ABG pH 7.420 pH Units (7.350-7.450) 01/17/17 04:35 POC ABG pCO2 32.8 (35-45) L 01/31/17 18:55 ABG pCO2 34.5 mm Hg 01/17/17 04:35 POC ABG pO2 82 (80-105) 01/31/17 18:55 ABG pO2 160.3 mm Hg (80.0-90.0) H 01/17/17 04:35 POC ABG HCO3 22.4 01/31/17 18:55 POC ABG Total CO2 23 01/31/17 18:55 POC ABG O2 Sat 97 01/31/17 18:55 ABG O2 Saturation 99.0 % (95.0-99.0) 01/17/17 04:35 PT/INR, D-dimer PT 14.1 Sec. (12.2-14.9) 01/17/17 04:10 INR 1.04 (0.87-1.13) 01/17/17 04:10 Abnormal lab findings: Abnormal Labs 01/09/17 01/09/17 01/09/17 10:16 10:16 10:16 WBC RBC Hgb 9.7 L Hct 28.4 L MCV 76 L MCH 26 L RDW 17.2 H Plt Count 448 H Lymph % (Auto) [place] % (Auto) Eos % (Auto) Seg Neutrophils % 79.5 H Seg Neuts % (Manual) Lymphocytes % (Manual) Seg Neutrophils # Seg Neutrophils # Man Lymphocytes # (Manual) APTT 39.6 H POC ABG pH ABG pH POC ABG pCO2 POC ABG pO2 ABG pO2 ABG HCO3 ABG Base Excess ABG Hemoglobin VBG pH Oxyhemoglobin Sodium 132 L Potassium Chloride 96.7 L Carbon Dioxide 21 L BUN 34 H Creatinine Glucose POC Glucose Lactic Acid Calcium 8.3 L AST ALT Alkaline Phosphatase 151 H CK-MB (CK-2) 7.1 H CK-MB (CK-2) Rel Index 5.2 H Total Protein Albumin 3.3 L TSH Urine WBC (Auto) Salicylates 01/09/17 01/09/17 01/09/17 10:16 10:16 10:16 WBC RBC Hgb Hct MCV MCH RDW Plt Count Lymph % (Auto) [place] % (Auto) Eos % (Auto) Seg Neutrophils % Seg Neuts % (Manual) Lymphocytes % (Manual) Seg Neutrophils # Seg Neutrophils # Man Lymphocytes # (Manual) APTT POC ABG pH ABG pH POC ABG pCO2 POC ABG pO2 ABG pO2 ABG HCO3 ABG Base Excess ABG Hemoglobin VBG pH 7.284 L Oxyhemoglobin Sodium Potassium Chloride Carbon Dioxide BUN Creatinine Glucose POC Glucose Lactic Acid Calcium AST ALT Alkaline Phosphatase CK-MB (CK-2) CK-MB (CK-2) Rel Index Total Protein Albumin TSH 52.800 H Urine WBC (Auto) Salicylates < 0.3 L 01/09/17 01/09/17 01/09/17 10:23 11:14 12:49 WBC RBC Hgb Hct MCV MCH RDW Plt Count Lymph % (Auto) [place] % (Auto) Eos % (Auto) Seg Neutrophils % Seg Neuts % (Manual) Lymphocytes % (Manual) Seg Neutrophils # Seg Neutrophils # Man Lymphocytes # (Manual) APTT POC ABG pH ABG pH POC ABG pCO2 POC ABG pO2 643 H ABG pO2 ABG HCO3 ABG Base Excess ABG Hemoglobin VBG pH Oxyhemoglobin Sodium Potassium Chloride Carbon Dioxide BUN Creatinine Glucose POC Glucose < 40 L Lactic Acid Calcium AST ALT Alkaline Phosphatase CK-MB (CK-2) CK-MB (CK-2) Rel Index Total Protein Albumin TSH Urine WBC (Auto) 61.0 H Salicylates 01/09/17 01/09/17 01/09/17 13:13 14:21 15:09 WBC RBC Hgb Hct MCV MCH RDW Plt Count Lymph % (Auto) [place] % (Auto) Eos % (Auto) Seg Neutrophils % Seg Neuts % (Manual) Lymphocytes % (Manual) Seg Neutrophils # Seg Neutrophils # Man Lymphocytes # (Manual) APTT POC ABG pH ABG pH POC ABG pCO2 POC ABG pO2 ABG pO2 ABG HCO3 ABG Base Excess ABG Hemoglobin VBG pH Oxyhemoglobin Sodium Potassium Chloride Carbon Dioxide BUN Creatinine Glucose POC Glucose 128 H 65 L 120 H Lactic Acid Calcium AST ALT Alkaline Phosphatase CK-MB (CK-2) CK-MB (CK-2) Rel Index Total Protein Albumin TSH Urine WBC (Auto) Salicylates 10/04/2701/09/17 01/10/17 16:28 17:14 04:30 WBC 24.1 H RBC 3.38 L Hgb 8.5 L Hct 26.0 L MCV 77 L MCH 25 L RDW 17.9 H Plt Count 474 H Lymph % (Auto) [place] % (Auto) Eos % (Auto) Seg Neutrophils % Seg Neuts % (Manual) 88.0 H Lymphocytes % (Manual) 4.0 L Seg Neutrophils # Seg Neutrophils # Man 21.2 H Lymphocytes # (Manual) 1.0 L APTT POC ABG pH ABG pH POC ABG pCO2 POC ABG pO2 ABG pO2 ABG HCO3 ABG Base Excess ABG Hemoglobin VBG pH Oxyhemoglobin Sodium Potassium Chloride Carbon Dioxide BUN Creatinine Glucose POC Glucose 44 L 112 H Lactic Acid Calcium AST ALT Alkaline Phosphatase CK-MB (CK-2) CK-MB (CK-2) Rel Index Total Protein Albumin TSH Urine WBC (Auto) Salicylates 01/10/17 01/10/17 01/10/17 04:30 05:41 05:45 WBC RBC Hgb Hct MCV MCH RDW Plt Count Lymph % (Auto) [place] % (Auto) Eos % (Auto) Seg Neutrophils % Seg Neuts % (Manual) Lymphocytes % (Manual) Seg Neutrophils # Seg Neutrophils # Man Lymphocytes # (Manual) APTT POC ABG pH ABG pH POC ABG pCO2 26.6 L POC ABG pO2 207 H ABG pO2 ABG HCO3 ABG Base Excess ABG Hemoglobin VBG pH Oxyhemoglobin Sodium Potassium Chloride Carbon Dioxide 17 L BUN 27 H Creatinine Glucose POC Glucose 68 L Lactic Acid Calcium 7.5 L AST ALT Alkaline Phosphatase CK-MB (CK-2) CK-MB (CK-2) Rel Index Total Protein Albumin TSH Urine WBC (Auto) Salicylates 01/10/17 01/10/17 01/10/17 07:47 10:50 13:41 WBC RBC Hgb Hct MCV MCH RDW Plt Count Lymph % (Auto) [place] % (Auto) Eos % (Auto) Seg Neutrophils % Seg Neuts % (Manual) Lymphocytes % (Manual) Seg Neutrophils # Seg Neutrophils # Man Lymphocytes # (Manual) APTT POC ABG pH ABG pH POC ABG pCO2 POC ABG pO2 ABG pO2 ABG HCO3 ABG Base Excess ABG Hemoglobin VBG pH Oxyhemoglobin Sodium Potassium Chloride Carbon Dioxide BUN Creatinine Glucose POC Glucose 148 H 165 H 114 H Lactic Acid Calcium AST ALT Alkaline Phosphatase CK-MB (CK-2) CK-MB (CK-2) Rel Index Total Protein Albumin TSH Urine WBC (Auto) Salicylates 01/10/17 01/10/17 01/10/17 20:20 21:39 23:24 WBC RBC Hgb Hct MCV MCH RDW Plt Count Lymph % (Auto) [place] % (Auto) Eos % (Auto) Seg Neutrophils % Seg Neuts % (Manual) Lymphocytes % (Manual) Seg Neutrophils # Seg Neutrophils # Man Lymphocytes # (Manual) APTT POC ABG pH ABG pH POC ABG pCO2 POC ABG pO2 ABG pO2 ABG HCO3 ABG Base Excess ABG Hemoglobin VBG pH Oxyhemoglobin Sodium Potassium Chloride Carbon Dioxide BUN Creatinine Glucose POC Glucose 150 H 175 H 155 H Lactic Acid Calcium AST ALT Alkaline Phosphatase CK-MB (CK-2) CK-MB (CK-2) Rel Index Total Protein Albumin TSH Urine WBC (Auto) Salicylates 01/11/17 01/11/17 01/11/17 00:19 04:06 05:20 WBC 15.2 H RBC 3.40 L Hgb 8.9 L Hct 26.3 L MCV 78 L MCH 26 L RDW 18.6 H Plt Count 462 H Lymph % (Auto) 13.2 L [place] % (Auto) Eos % (Auto) Seg Neutrophils % 80.8 H Seg Neuts % (Manual) Lymphocytes % (Manual) Seg Neutrophils # 12.3 H Seg Neutrophils # Man Lymphocytes # (Manual) APTT POC ABG pH 7.463 H ABG pH POC ABG pCO2 26.2 L POC ABG pO2 185 H ABG pO2 ABG HCO3 ABG Base Excess ABG Hemoglobin VBG pH Oxyhemoglobin Sodium Potassium Chloride Carbon Dioxide BUN Creatinine Glucose POC Glucose 163 H Lactic Acid Calcium AST ALT Alkaline Phosphatase CK-MB (CK-2) CK-MB (CK-2) Rel Index Total Protein Albumin TSH Urine WBC (Auto) Salicylates 01/11/17 01/11/17 01/11/17 05:20 06:21 07:57 WBC RBC Hgb Hct MCV MCH RDW Plt Count Lymph % (Auto) [place] % (Auto) Eos % (Auto) Seg Neutrophils % Seg Neuts % (Manual) Lymphocytes % (Manual) Seg Neutrophils # Seg Neutrophils # Man Lymphocytes # (Manual) APTT POC ABG pH ABG pH POC ABG pCO2 POC ABG pO2 ABG pO2 ABG HCO3 ABG Base Excess ABG Hemoglobin VBG pH Oxyhemoglobin Sodium Potassium 3.4 L Chloride 111.5 H Carbon Dioxide 17 L BUN Creatinine Glucose 147 H POC Glucose 139 H 188 H Lactic Acid Calcium 8.0 L AST ALT Alkaline Phosphatase CK-MB (CK-2) CK-MB (CK-2) Rel Index Total Protein Albumin TSH Urine WBC (Auto) Salicylates 01/11/17 01/11/17 01/11/17 11:46 16:50 23:15 WBC RBC Hgb Hct MCV MCH RDW Plt Count Lymph % (Auto) [place] % (Auto) Eos % (Auto) Seg Neutrophils % Seg Neuts % (Manual) Lymphocytes % (Manual) Seg Neutrophils # Seg Neutrophils # Man Lymphocytes # (Manual) APTT POC ABG pH ABG pH POC ABG pCO2 POC ABG pO2 ABG pO2 ABG HCO3 ABG Base Excess ABG Hemoglobin VBG pH Oxyhemoglobin Sodium Potassium Chloride Carbon Dioxide BUN Creatinine Glucose POC Glucose 199 H 235 H 155 H Lactic Acid Calcium AST ALT Alkaline Phosphatase CK-MB (CK-2) CK-MB (CK-2) Rel Index Total Protein Albumin TSH Urine WBC (Auto) Salicylates 01/12/17 01/12/17 01/12/17 05:02 06:56 14:50 WBC RBC Hgb Hct MCV MCH RDW Plt Count Lymph % (Auto) [place] % (Auto) Eos % (Auto) Seg Neutrophils % Seg Neuts % (Manual) Lymphocytes % (Manual) Seg Neutrophils # Seg Neutrophils # Man Lymphocytes # (Manual) APTT POC ABG pH ABG pH POC ABG pCO2 28.0 L POC ABG pO2 178 H ABG pO2 ABG HCO3 ABG Base Excess ABG Hemoglobin VBG pH Oxyhemoglobin Sodium Potassium Chloride Carbon Dioxide BUN Creatinine Glucose POC Glucose 119 H 164 H Lactic Acid Calcium AST ALT Alkaline Phosphatase CK-MB (CK-2) CK-MB (CK-2) Rel Index Total Protein Albumin TSH Urine WBC (Auto) Salicylates 01/13/17 01/13/17 01/13/17 03:37 03:37 04:26 WBC RBC 3.61 L Hgb 9.3 L Hct 28.0 L MCV 78 L MCH 26 L RDW 18.2 H Plt Count Lymph % (Auto) [place] % (Auto) Eos % (Auto) Seg Neutrophils % Seg Neuts % (Manual) Lymphocytes % (Manual) Seg Neutrophils # Seg Neutrophils # Man Lymphocytes # (Manual) APTT POC ABG pH 7.485 H ABG pH POC ABG pCO2 25.4 L POC ABG pO2 73 L ABG pO2 ABG HCO3 ABG Base Excess ABG Hemoglobin VBG pH Oxyhemoglobin Sodium Potassium Chloride 112.4 H Carbon Dioxide 19 L BUN Creatinine Glucose 118 H POC Glucose Lactic Acid Calcium 8.0 L AST ALT Alkaline Phosphatase CK-MB (CK-2) CK-MB (CK-2) Rel Index Total Protein Albumin TSH Urine WBC (Auto) Salicylates 01/13/17 01/13/17 01/13/17 06:15 11:50 17:31 WBC RBC Hgb Hct MCV MCH RDW Plt Count Lymph % (Auto) [place] % (Auto) Eos % (Auto) Seg Neutrophils % Seg Neuts % (Manual) Lymphocytes % (Manual) Seg Neutrophils # Seg Neutrophils # Man Lymphocytes # (Manual) APTT POC ABG pH ABG pH POC ABG pCO2 POC ABG pO2 ABG pO2 ABG HCO3 ABG Base Excess ABG Hemoglobin VBG pH Oxyhemoglobin Sodium Potassium Chloride Carbon Dioxide BUN Creatinine Glucose POC Glucose 116 H 171 H 203 H Lactic Acid Calcium AST ALT Alkaline Phosphatase CK-MB (CK-2) CK-MB (CK-2) Rel Index Total Protein Albumin TSH Urine WBC (Auto) Salicylates 01/14/17 01/14/17 01/14/17 00:02 04:50 04:50 WBC RBC 3.32 L Hgb 8.5 L Hct 26.1 L MCV 79 L MCH 26 L RDW 18.2 H Plt Count Lymph % (Auto) [place] % (Auto) 9.0 H Eos % (Auto) Seg Neutrophils % Seg Neuts % (Manual) Lymphocytes % (Manual) Seg Neutrophils # Seg Neutrophils # Man Lymphocytes # (Manual) APTT POC ABG pH ABG pH POC ABG pCO2 POC ABG pO2 ABG pO2 ABG HCO3 ABG Base Excess ABG Hemoglobin VBG pH Oxyhemoglobin Sodium Potassium Chloride 112.5 H Carbon Dioxide BUN Creatinine Glucose 149 H POC Glucose 157 H Lactic Acid Calcium 8.1 L AST ALT Alkaline Phosphatase CK-MB (CK-2) CK-MB (CK-2) Rel Index Total Protein Albumin TSH Urine WBC (Auto) Salicylates 01/14/17 01/14/17 01/14/17 05:10 11:27 14:07 WBC RBC Hgb Hct MCV MCH RDW Plt Count Lymph % (Auto) [place] % (Auto) Eos % (Auto) Seg Neutrophils % Seg Neuts % (Manual) Lymphocytes % (Manual) Seg Neutrophils # Seg Neutrophils # Man Lymphocytes # (Manual) APTT POC ABG pH ABG pH POC ABG pCO2 POC ABG pO2 ABG pO2 ABG HCO3 ABG Base Excess ABG Hemoglobin VBG pH Oxyhemoglobin Sodium Potassium Chloride Carbon Dioxide BUN Creatinine Glucose POC Glucose 176 H 147 H Lactic Acid Calcium AST ALT Alkaline Phosphatase CK-MB (CK-2) CK-MB (CK-2) Rel Index Total Protein Albumin TSH Urine WBC (Auto) 53.0 H Salicylates 01/14/17 01/15/17 01/15/17 16:52 00:04 05:26 WBC RBC Hgb Hct MCV MCH RDW Plt Count Lymph % (Auto) [place] % (Auto) Eos % (Auto) Seg Neutrophils % Seg Neuts % (Manual) Lymphocytes % (Manual) Seg Neutrophils # Seg Neutrophils # Man Lymphocytes # (Manual) APTT POC ABG pH ABG pH POC ABG pCO2 POC ABG pO2 ABG pO2 ABG HCO3 ABG Base Excess ABG Hemoglobin VBG pH Oxyhemoglobin Sodium Potassium Chloride Carbon Dioxide BUN Creatinine Glucose POC Glucose 131 H 193 H 215 H Lactic Acid Calcium AST ALT Alkaline Phosphatase CK-MB (CK-2) CK-MB (CK-2) Rel Index Total Protein Albumin TSH Urine WBC (Auto) Salicylates 01/15/17 01/15/17 01/15/17 11:49 17:47 21:33 WBC RBC Hgb Hct MCV MCH RDW Plt Count Lymph % (Auto) [place] % (Auto) Eos % (Auto) Seg Neutrophils % Seg Neuts % (Manual) Lymphocytes % (Manual) Seg Neutrophils # Seg Neutrophils # Man Lymphocytes # (Manual) APTT POC ABG pH ABG pH POC ABG pCO2 POC ABG pO2 ABG pO2 ABG HCO3 ABG Base Excess ABG Hemoglobin VBG pH Oxyhemoglobin Sodium Potassium Chloride Carbon Dioxide BUN Creatinine Glucose POC Glucose 121 H 211 H 275 H Lactic Acid Calcium AST ALT Alkaline Phosphatase CK-MB (CK-2) CK-MB (CK-2) Rel Index Total Protein Albumin TSH Urine WBC (Auto) Salicylates 01/16/17 01/16/17 01/16/17 04:30 05:28 13:45 WBC RBC Hgb Hct MCV MCH RDW Plt Count Lymph % (Auto) [place] % (Auto) Eos % (Auto) Seg Neutrophils % Seg Neuts % (Manual) Lymphocytes % (Manual) Seg Neutrophils # Seg Neutrophils # Man Lymphocytes # (Manual) APTT POC ABG pH ABG pH 7.457 H POC ABG pCO2 POC ABG pO2 ABG pO2 55.1 L ABG HCO3 19.4 L ABG Base Excess -4.0 L ABG Hemoglobin 6.8 L VBG pH Oxyhemoglobin 94.9 L Sodium Potassium Chloride Carbon Dioxide BUN Creatinine Glucose POC Glucose 271 H 236 H Lactic Acid Calcium AST ALT Alkaline Phosphatase CK-MB (CK-2) CK-MB (CK-2) Rel Index Total Protein Albumin TSH Urine WBC (Auto) Salicylates 01/16/17 01/17/17 01/17/17 21:39 04:10 04:10 WBC 4.4 L RBC 2.98 L Hgb 7.7 L Hct 23.3 L MCV 78 L MCH 26 L RDW 18.1 H Plt Count Lymph % (Auto) [place] % (Auto) Eos % (Auto) Seg Neutrophils % Seg Neuts % (Manual) Lymphocytes % (Manual) Seg Neutrophils # Seg Neutrophils # Man Lymphocytes # (Manual) APTT POC ABG pH ABG pH POC ABG pCO2 POC ABG pO2 ABG pO2 ABG HCO3 ABG Base Excess ABG Hemoglobin VBG pH Oxyhemoglobin Sodium Potassium 3.3 L Chloride 108.7 H Carbon Dioxide 20 L BUN 8 L Creatinine Glucose 202 H POC Glucose 258 H Lactic Acid Calcium 7.6 L AST ALT Alkaline Phosphatase CK-MB (CK-2) CK-MB (CK-2) Rel Index Total Protein Albumin TSH Urine WBC (Auto) Salicylates 01/17/17 01/17/17 01/17/17 04:35 12:23 16:01 WBC RBC Hgb Hct MCV MCH RDW Plt Count Lymph % (Auto) [place] % (Auto) Eos % (Auto) Seg Neutrophils % Seg Neuts % (Manual) Lymphocytes % (Manual) Seg Neutrophils # Seg Neutrophils # Man Lymphocytes # (Manual) APTT POC ABG pH ABG pH POC ABG pCO2 POC ABG pO2 ABG pO2 160.3 H ABG HCO3 ABG Base Excess -2.3 L ABG Hemoglobin 7.9 L VBG pH Oxyhemoglobin Sodium Potassium Chloride Carbon Dioxide BUN Creatinine Glucose POC Glucose 321 H 239 H Lactic Acid Calcium AST ALT Alkaline Phosphatase CK-MB (CK-2) CK-MB (CK-2) Rel Index Total Protein Albumin TSH Urine WBC (Auto) Salicylates 01/18/17 01/18/17 01/18/17 05:07 12:09 17:54 WBC RBC Hgb Hct MCV MCH RDW Plt Count Lymph % (Auto) [place] % (Auto) Eos % (Auto) Seg Neutrophils % Seg Neuts % (Manual) Lymphocytes % (Manual) Seg Neutrophils # Seg Neutrophils # Man Lymphocytes # (Manual) APTT POC ABG pH ABG pH POC ABG pCO2 POC ABG pO2 ABG pO2 ABG HCO3 ABG Base Excess ABG Hemoglobin VBG pH Oxyhemoglobin Sodium Potassium Chloride Carbon Dioxide BUN Creatinine Glucose POC Glucose 155 H 203 H 132 H Lactic Acid Calcium AST ALT Alkaline Phosphatase CK-MB (CK-2) CK-MB (CK-2) Rel Index Total Protein Albumin TSH Urine WBC (Auto) Salicylates 01/18/17 01/19/17 01/19/17 23:43 04:28 12:11 WBC RBC Hgb Hct MCV MCH RDW Plt Count Lymph % (Auto) [place] % (Auto) Eos % (Auto) Seg Neutrophils % Seg Neuts % (Manual) Lymphocytes % (Manual) Seg Neutrophils # Seg Neutrophils # Man Lymphocytes # (Manual) APTT POC ABG pH ABG pH POC ABG pCO2 POC ABG pO2 ABG pO2 ABG HCO3 ABG Base Excess ABG Hemoglobin VBG pH Oxyhemoglobin Sodium Potassium Chloride Carbon Dioxide BUN Creatinine Glucose POC Glucose 125 H 182 H 153 H Lactic Acid Calcium AST ALT Alkaline Phosphatase CK-MB (CK-2) CK-MB (CK-2) Rel Index Total Protein Albumin TSH Urine WBC (Auto) Salicylates 01/19/17 01/20/17 01/20/17 17:23 00:12 05:44 WBC RBC Hgb Hct MCV MCH RDW Plt Count Lymph % (Auto) [place] % (Auto) Eos % (Auto) Seg Neutrophils % Seg Neuts % (Manual) Lymphocytes % (Manual) Seg Neutrophils # Seg Neutrophils # Man Lymphocytes # (Manual) APTT POC ABG pH ABG pH POC ABG pCO2 POC ABG pO2 ABG pO2 ABG HCO3 ABG Base Excess ABG Hemoglobin VBG pH Oxyhemoglobin Sodium Potassium Chloride Carbon Dioxide BUN Creatinine Glucose POC Glucose 66 L 139 H 176 H Lactic Acid Calcium AST ALT Alkaline Phosphatase CK-MB (CK-2) CK-MB (CK-2) Rel Index Total Protein Albumin TSH Urine WBC (Auto) Salicylates 01/20/17 01/20/17 01/20/17 11:48 17:42 23:43 WBC RBC Hgb Hct MCV MCH RDW Plt Count Lymph % (Auto) [place] % (Auto) Eos % (Auto) Seg Neutrophils % Seg Neuts % (Manual) Lymphocytes % (Manual) Seg Neutrophils # Seg Neutrophils # Man Lymphocytes # (Manual) APTT POC ABG pH ABG pH POC ABG pCO2 POC ABG pO2 ABG pO2 ABG HCO3 ABG Base Excess ABG Hemoglobin VBG pH Oxyhemoglobin Sodium Potassium Chloride Carbon Dioxide BUN Creatinine Glucose POC Glucose 218 H 132 H 178 H Lactic Acid Calcium AST ALT Alkaline Phosphatase CK-MB (CK-2) CK-MB (CK-2) Rel Index Total Protein Albumin TSH Urine WBC (Auto) Salicylates 01/21/17 01/21/17 01/21/17 05:34 11:17 23:37 WBC RBC Hgb Hct MCV MCH RDW Plt Count Lymph % (Auto) [place] % (Auto) Eos % (Auto) Seg Neutrophils % Seg Neuts % (Manual) Lymphocytes % (Manual) Seg Neutrophils # Seg Neutrophils # Man Lymphocytes # (Manual) APTT POC ABG pH ABG pH POC ABG pCO2 POC ABG pO2 ABG pO2 ABG HCO3 ABG Base Excess ABG Hemoglobin VBG pH Oxyhemoglobin Sodium Potassium Chloride Carbon Dioxide BUN Creatinine Glucose POC Glucose 106 H 213 H 140 H Lactic Acid Calcium AST ALT Alkaline Phosphatase CK-MB (CK-2) CK-MB (CK-2) Rel Index Total Protein Albumin TSH Urine WBC (Auto) Salicylates 01/22/17 01/22/17 01/22/17 04:00 04:00 04:58 WBC RBC 3.26 L Hgb 8.3 L Hct 25.5 L MCV 78 L MCH 25 L RDW 17.9 H Plt Count Lymph % (Auto) [place] % (Auto) 7.9 H Eos % (Auto) 6.2 H Seg Neutrophils % Seg Neuts % (Manual) Lymphocytes % (Manual) Seg Neutrophils # Seg Neutrophils # Man Lymphocytes # (Manual) APTT POC ABG pH ABG pH POC ABG pCO2 POC ABG pO2 ABG pO2 ABG HCO3 ABG Base Excess ABG Hemoglobin VBG pH Oxyhemoglobin Sodium Potassium Chloride 95.5 L Carbon Dioxide 31 H D BUN Creatinine Glucose 134 H POC Glucose 146 H Lactic Acid Calcium AST 44 H ALT Alkaline Phosphatase 379 H CK-MB (CK-2) CK-MB (CK-2) Rel Index Total Protein Albumin 2.7 L TSH Urine WBC (Auto) Salicylates 01/22/17 01/22/17 01/22/17 12:12 18:12 23:39 WBC RBC Hgb Hct MCV MCH RDW Plt Count Lymph % (Auto) [place] % (Auto) Eos % (Auto) Seg Neutrophils % Seg Neuts % (Manual) Lymphocytes % (Manual) Seg Neutrophils # Seg Neutrophils # Man Lymphocytes # (Manual) APTT POC ABG pH ABG pH POC ABG pCO2 POC ABG pO2 ABG pO2 ABG HCO3 ABG Base Excess ABG Hemoglobin VBG pH Oxyhemoglobin Sodium Potassium Chloride Carbon Dioxide BUN Creatinine Glucose POC Glucose 255 H 182 H 134 H Lactic Acid Calcium AST ALT Alkaline Phosphatase CK-MB (CK-2) CK-MB (CK-2) Rel Index Total Protein Albumin TSH Urine WBC (Auto) Salicylates 01/23/17 01/23/17 01/23/17 04:43 12:12 17:36 WBC RBC Hgb Hct MCV MCH RDW Plt Count Lymph % (Auto) [place] % (Auto) Eos % (Auto) Seg Neutrophils % Seg Neuts % (Manual) Lymphocytes % (Manual) Seg Neutrophils # Seg Neutrophils # Man Lymphocytes # (Manual) APTT POC ABG pH ABG pH POC ABG pCO2 POC ABG pO2 ABG pO2 ABG HCO3 ABG Base Excess ABG Hemoglobin VBG pH Oxyhemoglobin Sodium Potassium Chloride Carbon Dioxide BUN Creatinine Glucose POC Glucose 218 H 128 H 156 H Lactic Acid Calcium AST ALT Alkaline Phosphatase CK-MB (CK-2) CK-MB (CK-2) Rel Index Total Protein Albumin TSH Urine WBC (Auto) Salicylates 01/24/17 01/24/17 01/24/17 00:08 05:16 11:40 WBC RBC Hgb Hct MCV MCH RDW Plt Count Lymph % (Auto) [place] % (Auto) Eos % (Auto) Seg Neutrophils % Seg Neuts % (Manual) Lymphocytes % (Manual) Seg Neutrophils # Seg Neutrophils # Man Lymphocytes # (Manual) APTT POC ABG pH ABG pH POC ABG pCO2 POC ABG pO2 ABG pO2 ABG HCO3 ABG Base Excess ABG Hemoglobin VBG pH Oxyhemoglobin Sodium Potassium Chloride Carbon Dioxide BUN Creatinine Glucose POC Glucose 129 H 169 H 187 H Lactic Acid Calcium AST ALT Alkaline Phosphatase CK-MB (CK-2) CK-MB (CK-2) Rel Index Total Protein Albumin TSH Urine WBC (Auto) Salicylates 01/24/17 01/24/17 01/25/17 17:43 23:23 04:56 WBC RBC Hgb Hct MCV MCH RDW Plt Count Lymph % (Auto) [place] % (Auto) Eos % (Auto) Seg Neutrophils % Seg Neuts % (Manual) Lymphocytes % (Manual) Seg Neutrophils # Seg Neutrophils # Man Lymphocytes # (Manual) APTT POC ABG pH ABG pH POC ABG pCO2 POC ABG pO2 ABG pO2 ABG HCO3 ABG Base Excess ABG Hemoglobin VBG pH Oxyhemoglobin Sodium Potassium Chloride Carbon Dioxide BUN Creatinine Glucose POC Glucose 215 H 222 H 210 H Lactic Acid Calcium AST ALT Alkaline Phosphatase CK-MB (CK-2) CK-MB (CK-2) Rel Index Total Protein Albumin TSH Urine WBC (Auto) Salicylates 01/25/17 01/25/17 01/26/17 11:52 17:37 00:02 WBC RBC Hgb Hct MCV MCH RDW Plt Count Lymph % (Auto) [place] % (Auto) Eos % (Auto) Seg Neutrophils % Seg Neuts % (Manual) Lymphocytes % (Manual) Seg Neutrophils # Seg Neutrophils # Man Lymphocytes # (Manual) APTT POC ABG pH ABG pH POC ABG pCO2 POC ABG pO2 ABG pO2 ABG HCO3 ABG Base Excess ABG Hemoglobin VBG pH Oxyhemoglobin Sodium Potassium Chloride Carbon Dioxide BUN Creatinine Glucose POC Glucose 284 H 218 H 192 H Lactic Acid Calcium AST ALT Alkaline Phosphatase CK-MB (CK-2) CK-MB (CK-2) Rel Index Total Protein Albumin TSH Urine WBC (Auto) Salicylates 01/26/17 01/26/17 01/26/17 05:33 12:17 17:50 WBC RBC Hgb Hct MCV MCH RDW Plt Count Lymph % (Auto) [place] % (Auto) Eos % (Auto) Seg Neutrophils % Seg Neuts % (Manual) Lymphocytes % (Manual) Seg Neutrophils # Seg Neutrophils # Man Lymphocytes # (Manual) APTT POC ABG pH ABG pH POC ABG pCO2 POC ABG pO2 ABG pO2 ABG HCO3 ABG Base Excess ABG Hemoglobin VBG pH Oxyhemoglobin Sodium Potassium Chloride Carbon Dioxide BUN Creatinine Glucose POC Glucose 199 H 227 H 229 H Lactic Acid Calcium AST ALT Alkaline Phosphatase CK-MB (CK-2) CK-MB (CK-2) Rel Index Total Protein Albumin TSH Urine WBC (Auto) Salicylates 01/26/17 01/27/17 01/27/17 23:57 05:31 11:42 WBC RBC Hgb Hct MCV MCH RDW Plt Count Lymph % (Auto) [place] % (Auto) Eos % (Auto) Seg Neutrophils % Seg Neuts % (Manual) Lymphocytes % (Manual) Seg Neutrophils # Seg Neutrophils # Man Lymphocytes # (Manual) APTT POC ABG pH ABG pH POC ABG pCO2 POC ABG pO2 ABG pO2 ABG HCO3 ABG Base Excess ABG Hemoglobin VBG pH Oxyhemoglobin Sodium Potassium Chloride Carbon Dioxide BUN Creatinine Glucose POC Glucose 186 H 285 H 260 H Lactic Acid Calcium AST ALT Alkaline Phosphatase CK-MB (CK-2) CK-MB (CK-2) Rel Index Total Protein Albumin TSH Urine WBC (Auto) Salicylates 01/27/17 01/27/17 01/27/17 17:47 23:58 Unknown WBC 12.1 H RBC 3.28 L Hgb 8.5 L Hct 25.5 L MCV 78 L MCH 26 L RDW 16.8 H Plt Count 601 H Lymph % (Auto) [place] % (Auto) Eos % (Auto) Seg Neutrophils % Seg Neuts % (Manual) Lymphocytes % (Manual) Seg Neutrophils # Seg Neutrophils # Man Lymphocytes # (Manual) APTT POC ABG pH ABG pH POC ABG pCO2 POC ABG pO2 ABG pO2 ABG HCO3 ABG Base Excess ABG Hemoglobin VBG pH Oxyhemoglobin Sodium Potassium Chloride Carbon Dioxide BUN Creatinine Glucose POC Glucose 329 H 225 H Lactic Acid Calcium AST ALT Alkaline Phosphatase CK-MB (CK-2) CK-MB (CK-2) Rel Index Total Protein Albumin TSH Urine WBC (Auto) Salicylates 01/27/17 01/28/17 01/28/17 Unknown 03:44 03:44 WBC RBC 3.14 L Hgb 8.2 L Hct 24.1 L MCV 77 L MCH 26 L RDW 16.9 H Plt Count 567 H Lymph % (Auto) [place] % (Auto) Eos % (Auto) Seg Neutrophils % Seg Neuts % (Manual) Lymphocytes % (Manual) Seg Neutrophils # Seg Neutrophils # Man Lymphocytes # (Manual) APTT POC ABG pH ABG pH POC ABG pCO2 POC ABG pO2 ABG pO2 ABG HCO3 ABG Base Excess ABG Hemoglobin VBG pH Oxyhemoglobin Sodium 128 L Potassium 5.4 H Chloride 87.5 L Carbon Dioxide BUN 44 H 42 H Creatinine Glucose 250 H 128 H POC Glucose Lactic Acid Calcium AST ALT Alkaline Phosphatase CK-MB (CK-2) CK-MB (CK-2) Rel Index Total Protein Albumin TSH Urine WBC (Auto) Salicylates 01/28/17 01/28/17 01/28/17 11:43 16:47 17:52 WBC RBC Hgb Hct MCV MCH RDW Plt Count Lymph % (Auto) [place] % (Auto) Eos % (Auto) Seg Neutrophils % Seg Neuts % (Manual) Lymphocytes % (Manual) Seg Neutrophils # Seg Neutrophils # Man Lymphocytes # (Manual) APTT POC ABG pH ABG pH POC ABG pCO2 POC ABG pO2 ABG pO2 ABG HCO3 ABG Base Excess ABG Hemoglobin VBG pH Oxyhemoglobin Sodium Potassium Chloride Carbon Dioxide BUN Creatinine Glucose POC Glucose 351 H 249 H Lactic Acid Calcium AST ALT Alkaline Phosphatase CK-MB (CK-2) CK-MB (CK-2) Rel Index Total Protein Albumin TSH Urine WBC (Auto) > 182.0 H Salicylates 01/29/17 01/29/17 01/29/17 05:25 05:25 09:32 WBC 13.6 H RBC 3.25 L Hgb 8.3 L Hct 25.1 L MCV 77 L MCH 26 L RDW 16.8 H Plt Count 514 H Lymph % (Auto) [place] % (Auto) Eos % (Auto) Seg Neutrophils % Seg Neuts % (Manual) Lymphocytes % (Manual) Seg Neutrophils # Seg Neutrophils # Man Lymphocytes # (Manual) APTT POC ABG pH ABG pH POC ABG pCO2 POC ABG pO2 ABG pO2 ABG HCO3 ABG Base Excess ABG Hemoglobin VBG pH Oxyhemoglobin Sodium Potassium Chloride 97.8 L Carbon Dioxide BUN 34 H Creatinine Glucose 222 H POC Glucose Lactic Acid 2.50 H* Calcium AST ALT Alkaline Phosphatase CK-MB (CK-2) CK-MB (CK-2) Rel Index Total Protein Albumin TSH Urine WBC (Auto) Salicylates 01/29/17 01/29/17 01/29/17 11:56 18:11 23:55 WBC RBC Hgb Hct MCV MCH RDW Plt Count Lymph % (Auto) [place] % (Auto) Eos % (Auto) Seg Neutrophils % Seg Neuts % (Manual) Lymphocytes % (Manual) Seg Neutrophils # Seg Neutrophils # Man Lymphocytes # (Manual) APTT POC ABG pH ABG pH POC ABG pCO2 POC ABG pO2 ABG pO2 ABG HCO3 ABG Base Excess ABG Hemoglobin VBG pH Oxyhemoglobin Sodium Potassium Chloride Carbon Dioxide BUN Creatinine Glucose POC Glucose 261 H 215 H 176 H Lactic Acid Calcium AST ALT Alkaline Phosphatase CK-MB (CK-2) CK-MB (CK-2) Rel Index Total Protein Albumin TSH Urine WBC (Auto) Salicylates 01/30/17 01/30/17 01/30/17 05:31 05:31 05:34 WBC 15.2 H RBC 3.09 L Hgb 7.9 L Hct 23.9 L MCV 77 L MCH 26 L RDW 16.9 H Plt Count 569 H Lymph % (Auto) [place] % (Auto) Eos % (Auto) Seg Neutrophils % Seg Neuts % (Manual) Lymphocytes % (Manual) Seg Neutrophils # Seg Neutrophils # Man Lymphocytes # (Manual) APTT POC ABG pH ABG pH POC ABG pCO2 POC ABG pO2 ABG pO2 ABG HCO3 ABG Base Excess ABG Hemoglobin VBG pH Oxyhemoglobin Sodium Potassium Chloride Carbon Dioxide BUN 24 H Creatinine Glucose 235 H POC Glucose 243 H Lactic Acid Calcium AST ALT Alkaline Phosphatase CK-MB (CK-2) CK-MB (CK-2) Rel Index Total Protein Albumin TSH Urine WBC (Auto) Salicylates 01/30/17 01/30/17 01/30/17 11:38 17:58 23:29 WBC RBC Hgb Hct MCV MCH RDW Plt Count Lymph % (Auto) [place] % (Auto) Eos % (Auto) Seg Neutrophils % Seg Neuts % (Manual) Lymphocytes % (Manual) Seg Neutrophils # Seg Neutrophils # Man Lymphocytes # (Manual) APTT POC ABG pH ABG pH POC ABG pCO2 POC ABG pO2 ABG pO2 ABG HCO3 ABG Base Excess ABG Hemoglobin VBG pH Oxyhemoglobin Sodium Potassium Chloride Carbon Dioxide BUN Creatinine Glucose POC Glucose 298 H 208 H 245 H Lactic Acid Calcium AST ALT Alkaline Phosphatase CK-MB (CK-2) CK-MB (CK-2) Rel Index Total Protein Albumin TSH Urine WBC (Auto) Salicylates 01/31/17 01/31/17 01/31/17 04:39 04:39 05:57 WBC 11.4 H RBC 3.22 L Hgb 8.2 L Hct 24.9 L MCV 78 L MCH 25 L RDW 17.2 H Plt Count 576 H Lymph % (Auto) [place] % (Auto) Eos % (Auto) Seg Neutrophils % Seg Neuts % (Manual) Lymphocytes % (Manual) Seg Neutrophils # Seg Neutrophils # Man Lymphocytes # (Manual) APTT POC ABG pH ABG pH POC ABG pCO2 POC ABG pO2 ABG pO2 ABG HCO3 ABG Base Excess ABG Hemoglobin VBG pH Oxyhemoglobin Sodium Potassium Chloride Carbon Dioxide BUN Creatinine 0.7 L Glucose 223 H POC Glucose 264 H Lactic Acid Calcium AST ALT Alkaline Phosphatase CK-MB (CK-2) CK-MB (CK-2) Rel Index Total Protein Albumin TSH Urine WBC (Auto) Salicylates 01/31/17 01/31/17 01/31/17 12:23 17:41 18:55 WBC RBC Hgb Hct MCV MCH RDW Plt Count Lymph % (Auto) [place] % (Auto) Eos % (Auto) Seg Neutrophils % Seg Neuts % (Manual) Lymphocytes % (Manual) Seg Neutrophils # Seg Neutrophils # Man Lymphocytes # (Manual) APTT POC ABG pH ABG pH POC ABG pCO2 32.8 L POC ABG pO2 ABG pO2 ABG HCO3 ABG Base Excess ABG Hemoglobin VBG pH Oxyhemoglobin Sodium Potassium Chloride Carbon Dioxide BUN Creatinine Glucose POC Glucose 252 H 208 H Lactic Acid Calcium AST ALT Alkaline Phosphatase CK-MB (CK-2) CK-MB (CK-2) Rel Index Total Protein Albumin TSH Urine WBC (Auto) Salicylates 01/31/17 02/01/17 02/01/17 22:59 03:38 03:38 WBC RBC 2.81 L Hgb 7.4 L Hct 22.1 L MCV 79 L MCH 27 L RDW 17.0 H Plt Count 540 H Lymph % (Auto) [place] % (Auto) Eos % (Auto) Seg Neutrophils % Seg Neuts % (Manual) Lymphocytes % (Manual) Seg Neutrophils # Seg Neutrophils # Man Lymphocytes # (Manual) APTT POC ABG pH ABG pH POC ABG pCO2 POC ABG pO2 ABG pO2 ABG HCO3 ABG Base Excess ABG Hemoglobin VBG pH Oxyhemoglobin Sodium Potassium Chloride Carbon Dioxide 21 L BUN Creatinine 0.7 L Glucose POC Glucose 40 L Lactic Acid Calcium AST ALT Alkaline Phosphatase CK-MB (CK-2) CK-MB (CK-2) Rel Index Total Protein Albumin TSH Urine WBC (Auto) Salicylates 02/01/17 02/01/17 02/01/17 05:17 12:19 16:44 WBC RBC Hgb Hct MCV MCH RDW Plt Count Lymph % (Auto) [place] % (Auto) Eos % (Auto) Seg Neutrophils % Seg Neuts % (Manual) Lymphocytes % (Manual) Seg Neutrophils # Seg Neutrophils # Man Lymphocytes # (Manual) APTT POC ABG pH ABG pH POC ABG pCO2 POC ABG pO2 ABG pO2 ABG HCO3 ABG Base Excess ABG Hemoglobin VBG pH Oxyhemoglobin Sodium Potassium Chloride Carbon Dioxide BUN Creatinine Glucose POC Glucose 140 H 213 H 172 H Lactic Acid Calcium AST ALT Alkaline Phosphatase CK-MB (CK-2) CK-MB (CK-2) Rel Index Total Protein Albumin TSH Urine WBC (Auto) Salicylates 02/01/17 02/02/17 02/02/17 23:59 05:14 11:24 WBC RBC Hgb Hct MCV MCH RDW Plt Count Lymph % (Auto) [place] % (Auto) Eos % (Auto) Seg Neutrophils % Seg Neuts % (Manual) Lymphocytes % (Manual) Seg Neutrophils # Seg Neutrophils # Man Lymphocytes # (Manual) APTT POC ABG pH ABG pH POC ABG pCO2 POC ABG pO2 ABG pO2 ABG HCO3 ABG Base Excess ABG Hemoglobin VBG pH Oxyhemoglobin Sodium Potassium Chloride Carbon Dioxide BUN Creatinine Glucose POC Glucose 181 H 194 H 209 H Lactic Acid Calcium AST ALT Alkaline Phosphatase CK-MB (CK-2) CK-MB (CK-2) Rel Index Total Protein Albumin TSH Urine WBC (Auto) Salicylates 02/02/17 02/02/17 02/02/17 11:46 11:46 17:47 WBC RBC 2.94 L Hgb 7.5 L Hct 23.0 L MCV 78 L MCH 25 L RDW 16.9 H Plt Count 520 H Lymph % (Auto) [place] % (Auto) Eos % (Auto) Seg Neutrophils % Seg Neuts % (Manual) Lymphocytes % (Manual) Seg Neutrophils # Seg Neutrophils # Man Lymphocytes # (Manual) APTT POC ABG pH ABG pH POC ABG pCO2 POC ABG pO2 ABG pO2 ABG HCO3 ABG Base Excess ABG Hemoglobin VBG pH Oxyhemoglobin Sodium Potassium Chloride Carbon Dioxide BUN Creatinine 0.6 L Glucose 189 H POC Glucose 147 H Lactic Acid Calcium 8.1 L AST ALT Alkaline Phosphatase CK-MB (CK-2) CK-MB (CK-2) Rel Index Total Protein Albumin TSH Urine WBC (Auto) Salicylates 02/02/17 02/03/17 02/03/17 23:32 05:53 11:19 WBC RBC Hgb Hct MCV MCH RDW Plt Count Lymph % (Auto) [place] % (Auto) Eos % (Auto) Seg Neutrophils % Seg Neuts % (Manual) Lymphocytes % (Manual) Seg Neutrophils # Seg Neutrophils # Man Lymphocytes # (Manual) APTT POC ABG pH ABG pH POC ABG pCO2 POC ABG pO2 ABG pO2 ABG HCO3 ABG Base Excess ABG Hemoglobin VBG pH Oxyhemoglobin Sodium Potassium Chloride Carbon Dioxide BUN Creatinine Glucose POC Glucose 176 H 224 H 228 H Lactic Acid Calcium AST ALT Alkaline Phosphatase CK-MB (CK-2) CK-MB (CK-2) Rel Index Total Protein Albumin TSH Urine WBC (Auto) Salicylates 02/03/17 02/03/17 02/04/17 16:59 23:38 05:45 WBC RBC Hgb Hct MCV MCH RDW Plt Count Lymph % (Auto) [place] % (Auto) Eos % (Auto) Seg Neutrophils % Seg Neuts % (Manual) Lymphocytes % (Manual) Seg Neutrophils # Seg Neutrophils # Man Lymphocytes # (Manual) APTT POC ABG pH ABG pH POC ABG pCO2 POC ABG pO2 ABG pO2 ABG HCO3 ABG Base Excess ABG Hemoglobin VBG pH Oxyhemoglobin Sodium Potassium Chloride Carbon Dioxide BUN Creatinine Glucose POC Glucose 189 H 191 H 251 H Lactic Acid Calcium AST ALT Alkaline Phosphatase CK-MB (CK-2) CK-MB (CK-2) Rel Index Total Protein Albumin TSH Urine WBC (Auto) Salicylates 02/04/17 02/04/17 02/05/17 11:20 17:20 00:17 WBC RBC Hgb Hct MCV MCH RDW Plt Count Lymph % (Auto) [place] % (Auto) Eos % (Auto) Seg Neutrophils % Seg Neuts % (Manual) Lymphocytes % (Manual) Seg Neutrophils # Seg Neutrophils # Man Lymphocytes # (Manual) APTT POC ABG pH ABG pH POC ABG pCO2 POC ABG pO2 ABG pO2 ABG HCO3 ABG Base Excess ABG Hemoglobin VBG pH Oxyhemoglobin Sodium Potassium Chloride Carbon Dioxide BUN Creatinine Glucose POC Glucose 243 H 163 H 200 H Lactic Acid Calcium AST ALT Alkaline Phosphatase CK-MB (CK-2) CK-MB (CK-2) Rel Index Total Protein Albumin TSH Urine WBC (Auto) Salicylates 02/05/17 02/05/17 02/05/17 05:38 12:38 16:29 WBC RBC Hgb Hct MCV MCH RDW Plt Count Lymph % (Auto) [place] % (Auto) Eos % (Auto) Seg Neutrophils % Seg Neuts % (Manual) Lymphocytes % (Manual) Seg Neutrophils # Seg Neutrophils # Man Lymphocytes # (Manual) APTT POC ABG pH ABG pH POC ABG pCO2 POC ABG pO2 ABG pO2 ABG HCO3 ABG Base Excess ABG Hemoglobin VBG pH Oxyhemoglobin Sodium Potassium Chloride Carbon Dioxide BUN Creatinine Glucose POC Glucose 248 H 241 H 257 H Lactic Acid Calcium AST ALT Alkaline Phosphatase CK-MB (CK-2) CK-MB (CK-2) Rel Index Total Protein Albumin TSH Urine WBC (Auto) Salicylates 02/05/17 02/06/17 02/06/17 23:56 05:30 11:50 WBC RBC Hgb Hct MCV MCH RDW Plt Count Lymph % (Auto) [place] % (Auto) Eos % (Auto) Seg Neutrophils % Seg Neuts % (Manual) Lymphocytes % (Manual) Seg Neutrophils # Seg Neutrophils # Man Lymphocytes # (Manual) APTT POC ABG pH ABG pH POC ABG pCO2 POC ABG pO2 ABG pO2 ABG HCO3 ABG Base Excess ABG Hemoglobin VBG pH Oxyhemoglobin Sodium Potassium Chloride Carbon Dioxide BUN Creatinine Glucose POC Glucose 258 H 120 H 254 H Lactic Acid Calcium AST ALT Alkaline Phosphatase CK-MB (CK-2) CK-MB (CK-2) Rel Index Total Protein Albumin TSH Urine WBC (Auto) Salicylates 02/06/17 02/06/17 02/07/17 17:11 23:50 05:22 WBC RBC Hgb Hct MCV MCH RDW Plt Count Lymph % (Auto) [place] % (Auto) Eos % (Auto) Seg Neutrophils % Seg Neuts % (Manual) Lymphocytes % (Manual) Seg Neutrophils # Seg Neutrophils # Man Lymphocytes # (Manual) APTT POC ABG pH ABG pH POC ABG pCO2 POC ABG pO2 ABG pO2 ABG HCO3 ABG Base Excess ABG Hemoglobin VBG pH Oxyhemoglobin Sodium Potassium Chloride Carbon Dioxide BUN Creatinine Glucose POC Glucose 149 H 240 H 258 H Lactic Acid Calcium AST ALT Alkaline Phosphatase CK-MB (CK-2) CK-MB (CK-2) Rel Index Total Protein Albumin TSH Urine WBC (Auto) Salicylates 02/07/17 02/07/17 02/07/17 11:15 18:33 23:59 WBC RBC Hgb Hct MCV MCH RDW Plt Count Lymph % (Auto) [place] % (Auto) Eos % (Auto) Seg Neutrophils % Seg Neuts % (Manual) Lymphocytes % (Manual) Seg Neutrophils # Seg Neutrophils # Man Lymphocytes # (Manual) APTT POC ABG pH ABG pH POC ABG pCO2 POC ABG pO2 ABG pO2 ABG HCO3 ABG Base Excess ABG Hemoglobin VBG pH Oxyhemoglobin Sodium Potassium Chloride Carbon Dioxide BUN Creatinine Glucose POC Glucose 239 H 176 H 186 H Lactic Acid Calcium AST ALT Alkaline Phosphatase CK-MB (CK-2) CK-MB (CK-2) Rel Index Total Protein Albumin TSH Urine WBC (Auto) Salicylates 02/08/17 02/08/17 02/08/17 06:15 11:55 16:55 WBC RBC Hgb Hct MCV MCH RDW Plt Count Lymph % (Auto) [place] % (Auto) Eos % (Auto) Seg Neutrophils % Seg Neuts % (Manual) Lymphocytes % (Manual) Seg Neutrophils # Seg Neutrophils # Man Lymphocytes # (Manual) APTT POC ABG pH ABG pH POC ABG pCO2 POC ABG pO2 ABG pO2 ABG HCO3 ABG Base Excess ABG Hemoglobin VBG pH Oxyhemoglobin Sodium Potassium Chloride Carbon Dioxide BUN Creatinine Glucose POC Glucose 195 H 129 H 246 H Lactic Acid Calcium AST ALT Alkaline Phosphatase CK-MB (CK-2) CK-MB (CK-2) Rel Index Total Protein Albumin TSH Urine WBC (Auto) Salicylates 02/08/17 02/09/17 02/09/17 23:51 05:51 07:24 WBC 14.7 H RBC 3.39 L Hgb 8.9 L Hct 26.4 L MCV 78 L MCH 26 L RDW 18.4 H Plt Count 670 H Lymph % (Auto) 11.8 L [place] % (Auto) Eos % (Auto) Seg Neutrophils % 81.2 H Seg Neuts % (Manual) Lymphocytes % (Manual) Seg Neutrophils # 11.9 H Seg Neutrophils # Man Lymphocytes # (Manual) APTT POC ABG pH ABG pH POC ABG pCO2 POC ABG pO2 ABG pO2 ABG HCO3 ABG Base Excess ABG Hemoglobin VBG pH Oxyhemoglobin Sodium Potassium Chloride Carbon Dioxide BUN Creatinine Glucose POC Glucose 262 H 295 H Lactic Acid Calcium AST ALT Alkaline Phosphatase CK-MB (CK-2) CK-MB (CK-2) Rel Index Total Protein Albumin TSH Urine WBC (Auto) Salicylates 02/09/17 02/09/17 02/09/17 07:24 12:08 18:39 WBC RBC Hgb Hct MCV MCH RDW Plt Count Lymph % (Auto) [place] % (Auto) Eos % (Auto) Seg Neutrophils % Seg Neuts % (Manual) Lymphocytes % (Manual) Seg Neutrophils # Seg Neutrophils # Man Lymphocytes # (Manual) APTT POC ABG pH ABG pH POC ABG pCO2 POC ABG pO2 ABG pO2 ABG HCO3 ABG Base Excess ABG Hemoglobin VBG pH Oxyhemoglobin Sodium Potassium Chloride 95.5 L Carbon Dioxide BUN 52 H Creatinine Glucose 277 H POC Glucose 236 H 151 H Lactic Acid Calcium AST ALT Alkaline Phosphatase CK-MB (CK-2) CK-MB (CK-2) Rel Index Total Protein Albumin TSH Urine WBC (Auto) Salicylates 02/10/17 02/10/17 02/10/17 00:01 05:44 11:21 WBC RBC Hgb Hct MCV MCH RDW Plt Count Lymph % (Auto) [place] % (Auto) Eos % (Auto) Seg Neutrophils % Seg Neuts % (Manual) Lymphocytes % (Manual) Seg Neutrophils # Seg Neutrophils # Man Lymphocytes # (Manual) APTT POC ABG pH ABG pH POC ABG pCO2 POC ABG pO2 ABG pO2 ABG HCO3 ABG Base Excess ABG Hemoglobin VBG pH Oxyhemoglobin Sodium Potassium Chloride Carbon Dioxide BUN Creatinine Glucose POC Glucose 210 H 201 H 233 H Lactic Acid Calcium AST ALT Alkaline Phosphatase CK-MB (CK-2) CK-MB (CK-2) Rel Index Total Protein Albumin TSH Urine WBC (Auto) Salicylates 02/10/17 02/10/17 02/11/17 17:29 23:56 05:24 WBC RBC Hgb Hct MCV MCH RDW Plt Count Lymph % (Auto) [place] % (Auto) Eos % (Auto) Seg Neutrophils % Seg Neuts % (Manual) Lymphocytes % (Manual) Seg Neutrophils # Seg Neutrophils # Man Lymphocytes # (Manual) APTT POC ABG pH ABG pH POC ABG pCO2 POC ABG pO2 ABG pO2 ABG HCO3 ABG Base Excess ABG Hemoglobin VBG pH Oxyhemoglobin Sodium Potassium Chloride Carbon Dioxide BUN Creatinine Glucose POC Glucose 167 H 191 H 135 H Lactic Acid Calcium AST ALT Alkaline Phosphatase CK-MB (CK-2) CK-MB (CK-2) Rel Index Total Protein Albumin TSH Urine WBC (Auto) Salicylates 02/11/17 02/11/17 02/11/17 12:25 17:03 23:59 WBC RBC Hgb Hct MCV MCH RDW Plt Count Lymph % (Auto) [place] % (Auto) Eos % (Auto) Seg Neutrophils % Seg Neuts % (Manual) Lymphocytes % (Manual) Seg Neutrophils # Seg Neutrophils # Man Lymphocytes # (Manual) APTT POC ABG pH ABG pH POC ABG pCO2 POC ABG pO2 ABG pO2 ABG HCO3 ABG Base Excess ABG Hemoglobin VBG pH Oxyhemoglobin Sodium Potassium Chloride Carbon Dioxide BUN Creatinine Glucose POC Glucose 275 H 172 H 215 H Lactic Acid Calcium AST ALT Alkaline Phosphatase CK-MB (CK-2) CK-MB (CK-2) Rel Index Total Protein Albumin TSH Urine WBC (Auto) Salicylates 02/12/17 02/12/17 02/12/17 05:39 11:33 17:55 WBC RBC Hgb Hct MCV MCH RDW Plt Count Lymph % (Auto) [place] % (Auto) Eos % (Auto) Seg Neutrophils % Seg Neuts % (Manual) Lymphocytes % (Manual) Seg Neutrophils # Seg Neutrophils # Man Lymphocytes # (Manual) APTT POC ABG pH ABG pH POC ABG pCO2 POC ABG pO2 ABG pO2 ABG HCO3 ABG Base Excess ABG Hemoglobin VBG pH Oxyhemoglobin Sodium Potassium Chloride Carbon Dioxide BUN Creatinine Glucose POC Glucose 261 H 217 H 172 H Lactic Acid Calcium AST ALT Alkaline Phosphatase CK-MB (CK-2) CK-MB (CK-2) Rel Index Total Protein Albumin TSH Urine WBC (Auto) Salicylates 1102/13/17 02/13/17 00:25 06:46 11:26 WBC RBC Hgb Hct MCV MCH RDW Plt Count Lymph % (Auto) [place] % (Auto) Eos % (Auto) Seg Neutrophils % Seg Neuts % (Manual) Lymphocytes % (Manual) Seg Neutrophils # Seg Neutrophils # Man Lymphocytes # (Manual) APTT POC ABG pH ABG pH POC ABG pCO2 POC ABG pO2 ABG pO2 ABG HCO3 ABG Base Excess ABG Hemoglobin VBG pH Oxyhemoglobin Sodium Potassium Chloride Carbon Dioxide BUN Creatinine Glucose POC Glucose 207 H 219 H 231 H Lactic Acid Calcium AST ALT Alkaline Phosphatase CK-MB (CK-2) CK-MB (CK-2) Rel Index Total Protein Albumin TSH Urine WBC (Auto) Salicylates 02/13/17 02/13/17 02/14/17 17:12 23:44 05:44 WBC RBC Hgb Hct MCV MCH RDW Plt Count Lymph % (Auto) [place] % (Auto) Eos % (Auto) Seg Neutrophils % Seg Neuts % (Manual) Lymphocytes % (Manual) Seg Neutrophils # Seg Neutrophils # Man Lymphocytes # (Manual) APTT POC ABG pH ABG pH POC ABG pCO2 POC ABG pO2 ABG pO2 ABG HCO3 ABG Base Excess ABG Hemoglobin VBG pH Oxyhemoglobin Sodium Potassium Chloride Carbon Dioxide BUN Creatinine Glucose POC Glucose 190 H 256 H 184 H Lactic Acid Calcium AST ALT Alkaline Phosphatase CK-MB (CK-2) CK-MB (CK-2) Rel Index Total Protein Albumin TSH Urine WBC (Auto) Salicylates 02/14/17 02/14/17 02/14/17 12:21 17:57 23:18 WBC RBC Hgb Hct MCV MCH RDW Plt Count Lymph % (Auto) [place] % (Auto) Eos % (Auto) Seg Neutrophils % Seg Neuts % (Manual) Lymphocytes % (Manual) Seg Neutrophils # Seg Neutrophils # Man Lymphocytes # (Manual) APTT POC ABG pH ABG pH POC ABG pCO2 POC ABG pO2 ABG pO2 ABG HCO3 ABG Base Excess ABG Hemoglobin VBG pH Oxyhemoglobin Sodium Potassium Chloride Carbon Dioxide BUN Creatinine Glucose POC Glucose 233 H 155 H 165 H Lactic Acid Calcium AST ALT Alkaline Phosphatase CK-MB (CK-2) CK-MB (CK-2) Rel Index Total Protein Albumin TSH Urine WBC (Auto) Salicylates 02/15/17 02/15/1702/15/17 05:33 11:45 17:20 WBC RBC Hgb Hct MCV MCH RDW Plt Count Lymph % (Auto) [place] % (Auto) Eos % (Auto) Seg Neutrophils % Seg Neuts % (Manual) Lymphocytes % (Manual) Seg Neutrophils # Seg Neutrophils # Man Lymphocytes # (Manual) APTT POC ABG pH ABG pH POC ABG pCO2 POC ABG pO2 ABG pO2 ABG HCO3 ABG Base Excess ABG Hemoglobin VBG pH Oxyhemoglobin Sodium Potassium Chloride Carbon Dioxide BUN Creatinine Glucose POC Glucose 239 H 130 H 189 H Lactic Acid Calcium AST ALT Alkaline Phosphatase CK-MB (CK-2) CK-MB (CK-2) Rel Index Total Protein Albumin TSH Urine WBC (Auto) Salicylates 02/16/17 02/16/17 02/16/17 00:14 05:09 12:31 WBC RBC Hgb Hct MCV MCH RDW Plt Count Lymph % (Auto) [place] % (Auto) Eos % (Auto) Seg Neutrophils % Seg Neuts % (Manual) Lymphocytes % (Manual) Seg Neutrophils # Seg Neutrophils # Man Lymphocytes # (Manual) APTT POC ABG pH ABG pH POC ABG pCO2 POC ABG pO2 ABG pO2 ABG HCO3 ABG Base Excess ABG Hemoglobin VBG pH Oxyhemoglobin Sodium Potassium Chloride Carbon Dioxide BUN Creatinine Glucose POC Glucose 197 H 226 H 178 H Lactic Acid Calcium AST ALT Alkaline Phosphatase CK-MB (CK-2) CK-MB (CK-2) Rel Index Total Protein Albumin TSH Urine WBC (Auto) Salicylates 02/16/17 02/16/17 02/17/17 16:35 23:49 05:37 WBC RBC Hgb Hct MCV MCH RDW Plt Count Lymph % (Auto) [place] % (Auto) Eos % (Auto) Seg Neutrophils % Seg Neuts % (Manual) Lymphocytes % (Manual) Seg Neutrophils # Seg Neutrophils # Man Lymphocytes # (Manual) APTT POC ABG pH ABG pH POC ABG pCO2 POC ABG pO2 ABG pO2 ABG HCO3 ABG Base Excess ABG Hemoglobin VBG pH Oxyhemoglobin Sodium Potassium Chloride Carbon Dioxide BUN Creatinine Glucose POC Glucose 174 H 62 L 153 H Lactic Acid Calcium AST ALT Alkaline Phosphatase CK-MB (CK-2) CK-MB (CK-2) Rel Index Total Protein Albumin TSH Urine WBC (Auto) Salicylates 02/17/17 02/17/17 02/17/17 11:39 17:02 22:24 WBC RBC Hgb Hct MCV MCH RDW Plt Count Lymph % (Auto) [place] % (Auto) Eos % (Auto) Seg Neutrophils % Seg Neuts % (Manual) Lymphocytes % (Manual) Seg Neutrophils # Seg Neutrophils # Man Lymphocytes # (Manual) APTT POC ABG pH ABG pH POC ABG pCO2 POC ABG pO2 ABG pO2 ABG HCO3 ABG Base Excess ABG Hemoglobin VBG pH Oxyhemoglobin Sodium Potassium Chloride Carbon Dioxide BUN Creatinine Glucose POC Glucose 231 H 112 H 116 H Lactic Acid Calcium AST ALT Alkaline Phosphatase CK-MB (CK-2) CK-MB (CK-2) Rel Index Total Protein Albumin TSH Urine WBC (Auto) Salicylates 02/18/17 02/19/17 02/19/17 15:34 05:09 07:57 WBC RBC Hgb Hct MCV MCH RDW Plt Count Lymph % (Auto) [place] % (Auto) Eos % (Auto) Seg Neutrophils % Seg Neuts % (Manual) Lymphocytes % (Manual) Seg Neutrophils # Seg Neutrophils # Man Lymphocytes # (Manual) APTT POC ABG pH ABG pH POC ABG pCO2 POC ABG pO2 ABG pO2 ABG HCO3 ABG Base Excess ABG Hemoglobin VBG pH Oxyhemoglobin Sodium Potassium Chloride Carbon Dioxide BUN Creatinine Glucose POC Glucose 215 H 218 H 283 H Lactic Acid Calcium AST ALT Alkaline Phosphatase CK-MB (CK-2) CK-MB (CK-2) Rel Index Total Protein Albumin TSH Urine WBC (Auto) Salicylates 02/19/17 02/19/17 02/20/17 14:49 22:10 05:10 WBC RBC Hgb Hct MCV MCH RDW Plt Count Lymph % (Auto) [place] % (Auto) Eos % (Auto) Seg Neutrophils % Seg Neuts % (Manual) Lymphocytes % (Manual) Seg Neutrophils # Seg Neutrophils # Man Lymphocytes # (Manual) APTT POC ABG pH ABG pH POC ABG pCO2 POC ABG pO2 ABG pO2 ABG HCO3 ABG Base Excess ABG Hemoglobin VBG pH Oxyhemoglobin Sodium Potassium Chloride Carbon Dioxide BUN Creatinine Glucose POC Glucose 290 H 169 H 209 H Lactic Acid Calcium AST ALT Alkaline Phosphatase CK-MB (CK-2) CK-MB (CK-2) Rel Index Total Protein Albumin TSH Urine WBC (Auto) Salicylates 02/20/17 02/20/17 02/21/17 15:05 21:52 02:00 WBC RBC Hgb Hct MCV MCH RDW Plt Count Lymph % (Auto) [place] % (Auto) Eos % (Auto) Seg Neutrophils % Seg Neuts % (Manual) Lymphocytes % (Manual) Seg Neutrophils # Seg Neutrophils # Man Lymphocytes # (Manual) APTT POC ABG pH ABG pH POC ABG pCO2 POC ABG pO2 ABG pO2 ABG HCO3 ABG Base Excess ABG Hemoglobin VBG pH Oxyhemoglobin Sodium Potassium Chloride Carbon Dioxide BUN Creatinine Glucose POC Glucose 172 H 209 H 216 H Lactic Acid Calcium AST ALT Alkaline Phosphatase CK-MB (CK-2) CK-MB (CK-2) Rel Index Total Protein Albumin TSH Urine WBC (Auto) Salicylates 02/21/17 02/21/17 02/21/17 04:54 14:43 17:47 WBC RBC Hgb Hct MCV MCH RDW Plt Count Lymph % (Auto) [place] % (Auto) Eos % (Auto) Seg Neutrophils % Seg Neuts % (Manual) Lymphocytes % (Manual) Seg Neutrophils # Seg Neutrophils # Man Lymphocytes # (Manual) APTT POC ABG pH ABG pH POC ABG pCO2 POC ABG pO2 ABG pO2 ABG HCO3 ABG Base Excess ABG Hemoglobin VBG pH Oxyhemoglobin Sodium Potassium Chloride Carbon Dioxide BUN Creatinine Glucose POC Glucose 227 H 290 H 220 H Lactic Acid Calcium AST ALT Alkaline Phosphatase CK-MB (CK-2) CK-MB (CK-2) Rel Index Total Protein Albumin TSH Urine WBC (Auto) Salicylates 02/21/17 02/22/17 02/22/17 22:02 04:52 15:25 WBC RBC Hgb Hct MCV MCH RDW Plt Count Lymph % (Auto) [place] % (Auto) Eos % (Auto) Seg Neutrophils % Seg Neuts % (Manual) Lymphocytes % (Manual) Seg Neutrophils # Seg Neutrophils # Man Lymphocytes # (Manual) APTT POC ABG pH ABG pH POC ABG pCO2 POC ABG pO2 ABG pO2 ABG HCO3 ABG Base Excess ABG Hemoglobin VBG pH Oxyhemoglobin Sodium Potassium Chloride Carbon Dioxide BUN Creatinine Glucose POC Glucose 246 H 212 H 236 H Lactic Acid Calcium AST ALT Alkaline Phosphatase CK-MB (CK-2) CK-MB (CK-2) Rel Index Total Protein Albumin TSH Urine WBC (Auto) Salicylates 02/22/17 02/23/17 02/23/17 21:33 06:04 10:00 WBC RBC Hgb Hct MCV MCH RDW Plt Count Lymph % (Auto) [place] % (Auto) Eos % (Auto) Seg Neutrophils % Seg Neuts % (Manual) Lymphocytes % (Manual) Seg Neutrophils # Seg Neutrophils # Man Lymphocytes # (Manual) APTT POC ABG pH ABG pH POC ABG pCO2 POC ABG pO2 ABG pO2 ABG HCO3 ABG Base Excess ABG Hemoglobin VBG pH Oxyhemoglobin Sodium Potassium Chloride Carbon Dioxide BUN Creatinine Glucose POC Glucose 255 H 208 H 174 H Lactic Acid Calcium AST ALT Alkaline Phosphatase CK-MB (CK-2) CK-MB (CK-2) Rel Index Total Protein Albumin TSH Urine WBC (Auto) Salicylates 02/23/17 02/23/17 02/23/17 12:52 17:15 21:51 WBC RBC Hgb Hct MCV MCH RDW Plt Count Lymph % (Auto) [place] % (Auto) Eos % (Auto) Seg Neutrophils % Seg Neuts % (Manual) Lymphocytes % (Manual) Seg Neutrophils # Seg Neutrophils # Man Lymphocytes # (Manual) APTT POC ABG pH ABG pH POC ABG pCO2 POC ABG pO2 ABG pO2 ABG HCO3 ABG Base Excess ABG Hemoglobin VBG pH Oxyhemoglobin Sodium Potassium Chloride Carbon Dioxide BUN Creatinine Glucose POC Glucose 203 H 269 H 205 H Lactic Acid Calcium AST ALT Alkaline Phosphatase CK-MB (CK-2) CK-MB (CK-2) Rel Index Total Protein Albumin TSH Urine WBC (Auto) Salicylates 02/24/17 02/24/17 02/24/17 10:23 17:45 21:24 WBC RBC Hgb Hct MCV MCH RDW Plt Count Lymph % (Auto) [place] % (Auto) Eos % (Auto) Seg Neutrophils % Seg Neuts % (Manual) Lymphocytes % (Manual) Seg Neutrophils # Seg Neutrophils # Man Lymphocytes # (Manual) APTT POC ABG pH ABG pH POC ABG pCO2 POC ABG pO2 ABG pO2 ABG HCO3 ABG Base Excess ABG Hemoglobin VBG pH Oxyhemoglobin Sodium Potassium Chloride Carbon Dioxide BUN Creatinine Glucose POC Glucose 280 H 239 H 254 H Lactic Acid Calcium AST ALT Alkaline Phosphatase CK-MB (CK-2) CK-MB (CK-2) Rel Index Total Protein Albumin TSH Urine WBC (Auto) Salicylates 02/25/17 02/25/17 02/25/17 02:12 05:17 14:32 WBC RBC Hgb Hct MCV MCH RDW Plt Count Lymph % (Auto) [place] % (Auto) Eos % (Auto) Seg Neutrophils % Seg Neuts % (Manual) Lymphocytes % (Manual) Seg Neutrophils # Seg Neutrophils # Man Lymphocytes # (Manual) APTT POC ABG pH ABG pH POC ABG pCO2 POC ABG pO2 ABG pO2 ABG HCO3 ABG Base Excess ABG Hemoglobin VBG pH Oxyhemoglobin Sodium Potassium Chloride Carbon Dioxide BUN Creatinine Glucose POC Glucose 296 H 332 H 353 H Lactic Acid Calcium AST ALT Alkaline Phosphatase CK-MB (CK-2) CK-MB (CK-2) Rel Index Total Protein Albumin TSH Urine WBC (Auto) Salicylates 02/25/17 02/26/17 02/26/17 22:14 00:37 05:52 WBC RBC Hgb Hct MCV MCH RDW Plt Count Lymph % (Auto) [place] % (Auto) Eos % (Auto) Seg Neutrophils % Seg Neuts % (Manual) Lymphocytes % (Manual) Seg Neutrophils # Seg Neutrophils # Man Lymphocytes # (Manual) APTT POC ABG pH ABG pH POC ABG pCO2 POC ABG pO2 ABG pO2 ABG HCO3 ABG Base Excess ABG Hemoglobin VBG pH Oxyhemoglobin Sodium Potassium Chloride Carbon Dioxide BUN Creatinine Glucose POC Glucose 201 H 233 H 269 H Lactic Acid Calcium AST ALT Alkaline Phosphatase CK-MB (CK-2) CK-MB (CK-2) Rel Index Total Protein Albumin TSH Urine WBC (Auto) Salicylates 02/26/17 02/26/17 02/26/17 11:48 13:49 21:26 WBC RBC Hgb Hct MCV MCH RDW Plt Count Lymph % (Auto) [place] % (Auto) Eos % (Auto) Seg Neutrophils % Seg Neuts % (Manual) Lymphocytes % (Manual) Seg Neutrophils # Seg Neutrophils # Man Lymphocytes # (Manual) APTT POC ABG pH ABG pH POC ABG pCO2 POC ABG pO2 ABG pO2 ABG HCO3 ABG Base Excess ABG Hemoglobin VBG pH Oxyhemoglobin Sodium Potassium Chloride Carbon Dioxide BUN Creatinine Glucose POC Glucose 333 H 322 H 244 H Lactic Acid Calcium AST ALT Alkaline Phosphatase CK-MB (CK-2) CK-MB (CK-2) Rel Index Total Protein Albumin TSH Urine WBC (Auto) Salicylates 02/27/17 02/27/17 02/27/17 05:27 13:51 21:48 WBC RBC Hgb Hct MCV MCH RDW Plt Count Lymph % (Auto) [place] % (Auto) Eos % (Auto) Seg Neutrophils % Seg Neuts % (Manual) Lymphocytes % (Manual) Seg Neutrophils # Seg Neutrophils # Man Lymphocytes # (Manual) APTT POC ABG pH ABG pH POC ABG pCO2 POC ABG pO2 ABG pO2 ABG HCO3 ABG Base Excess ABG Hemoglobin VBG pH Oxyhemoglobin Sodium Potassium Chloride Carbon Dioxide BUN Creatinine Glucose POC Glucose 217 H 239 H 254 H Lactic Acid Calcium AST ALT Alkaline Phosphatase CK-MB (CK-2) CK-MB (CK-2) Rel Index Total Protein Albumin TSH Urine WBC (Auto) Salicylates 02/28/17 02/28/17 02/28/17 05:38 11:00 19:44 WBC RBC Hgb Hct MCV MCH RDW Plt Count Lymph % (Auto) [place] % (Auto) Eos % (Auto) Seg Neutrophils % Seg Neuts % (Manual) Lymphocytes % (Manual) Seg Neutrophils # Seg Neutrophils # Man Lymphocytes # (Manual) APTT POC ABG pH ABG pH POC ABG pCO2 POC ABG pO2 ABG pO2 ABG HCO3 ABG Base Excess ABG Hemoglobin VBG pH Oxyhemoglobin Sodium Potassium Chloride Carbon Dioxide BUN Creatinine Glucose POC Glucose 325 H 203 H 116 H Lactic Acid Calcium AST ALT Alkaline Phosphatase CK-MB (CK-2) CK-MB (CK-2) Rel Index Total Protein Albumin TSH Urine WBC (Auto) Salicylates 03/01/17 03/01/17 03/01/17 00:08 05:31 12:17 WBC RBC Hgb Hct MCV MCH RDW Plt Count Lymph % (Auto) [place] % (Auto) Eos % (Auto) Seg Neutrophils % Seg Neuts % (Manual) Lymphocytes % (Manual) Seg Neutrophils # Seg Neutrophils # Man Lymphocytes # (Manual) APTT POC ABG pH ABG pH POC ABG pCO2 POC ABG pO2 ABG pO2 ABG HCO3 ABG Base Excess ABG Hemoglobin VBG pH Oxyhemoglobin Sodium Potassium Chloride Carbon Dioxide BUN Creatinine Glucose POC Glucose 202 H 183 H 184 H Lactic Acid Calcium AST ALT Alkaline Phosphatase CK-MB (CK-2) CK-MB (CK-2) Rel Index Total Protein Albumin TSH Urine WBC (Auto) Salicylates 03/02/17 03/02/17 03/02/17 00:12 05:58 18:22 WBC RBC Hgb Hct MCV MCH RDW Plt Count Lymph % (Auto) [place] % (Auto) Eos % (Auto) Seg Neutrophils % Seg Neuts % (Manual) Lymphocytes % (Manual) Seg Neutrophils # Seg Neutrophils # Man Lymphocytes # (Manual) APTT POC ABG pH ABG pH POC ABG pCO2 POC ABG pO2 ABG pO2 ABG HCO3 ABG Base Excess ABG Hemoglobin VBG pH Oxyhemoglobin Sodium Potassium Chloride Carbon Dioxide BUN Creatinine Glucose POC Glucose 117 H 176 H 156 H Lactic Acid Calcium AST ALT Alkaline Phosphatase CK-MB (CK-2) CK-MB (CK-2) Rel Index Total Protein Albumin TSH Urine WBC (Auto) Salicylates 03/02/17 03/03/17 03/03/17 23:51 05:44 11:32 WBC RBC Hgb Hct MCV MCH RDW Plt Count Lymph % (Auto) [place] % (Auto) Eos % (Auto) Seg Neutrophils % Seg Neuts % (Manual) Lymphocytes % (Manual) Seg Neutrophils # Seg Neutrophils # Man Lymphocytes # (Manual) APTT POC ABG pH ABG pH POC ABG pCO2 POC ABG pO2 ABG pO2 ABG HCO3 ABG Base Excess ABG Hemoglobin VBG pH Oxyhemoglobin Sodium Potassium Chloride Carbon Dioxide BUN Creatinine Glucose POC Glucose 211 H 117 H 133 H Lactic Acid Calcium AST ALT Alkaline Phosphatase CK-MB (CK-2) CK-MB (CK-2) Rel Index Total Protein Albumin TSH Urine WBC (Auto) Salicylates 03/03/17 03/03/17 03/04/17 17:43 23:17 05:30 WBC RBC Hgb Hct MCV MCH RDW Plt Count Lymph % (Auto) [place] % (Auto) Eos % (Auto) Seg Neutrophils % Seg Neuts % (Manual) Lymphocytes % (Manual) Seg Neutrophils # Seg Neutrophils # Man Lymphocytes # (Manual) APTT POC ABG pH ABG pH POC ABG pCO2 POC ABG pO2 ABG pO2 ABG HCO3 ABG Base Excess ABG Hemoglobin VBG pH Oxyhemoglobin Sodium Potassium Chloride Carbon Dioxide BUN Creatinine Glucose POC Glucose 206 H 170 H 126 H Lactic Acid Calcium AST ALT Alkaline Phosphatase CK-MB (CK-2) CK-MB (CK-2) Rel Index Total Protein Albumin TSH Urine WBC (Auto) Salicylates 03/04/17 03/04/17 03/05/17 12:17 17:27 05:20 WBC RBC Hgb Hct MCV MCH RDW Plt Count Lymph % (Auto) [place] % (Auto) Eos % (Auto) Seg Neutrophils % Seg Neuts % (Manual) Lymphocytes % (Manual) Seg Neutrophils # Seg Neutrophils # Man Lymphocytes # (Manual) APTT POC ABG pH ABG pH POC ABG pCO2 POC ABG pO2 ABG pO2 ABG HCO3 ABG Base Excess ABG Hemoglobin VBG pH Oxyhemoglobin Sodium Potassium Chloride Carbon Dioxide BUN Creatinine Glucose POC Glucose 135 H 121 H 185 H Lactic Acid Calcium AST ALT Alkaline Phosphatase CK-MB (CK-2) CK-MB (CK-2) Rel Index Total Protein Albumin TSH Urine WBC (Auto) Salicylates 03/05/17 03/06/17 03/06/17 11:50 11:52 17:34 WBC RBC Hgb Hct MCV MCH RDW Plt Count Lymph % (Auto) [place] % (Auto) Eos % (Auto) Seg Neutrophils % Seg Neuts % (Manual) Lymphocytes % (Manual) Seg Neutrophils # Seg Neutrophils # Man Lymphocytes # (Manual) APTT POC ABG pH ABG pH POC ABG pCO2 POC ABG pO2 ABG pO2 ABG HCO3 ABG Base Excess ABG Hemoglobin VBG pH Oxyhemoglobin Sodium Potassium Chloride Carbon Dioxide BUN Creatinine Glucose POC Glucose 116 H 133 H 181 H Lactic Acid Calcium AST ALT Alkaline Phosphatase CK-MB (CK-2) CK-MB (CK-2) Rel Index Total Protein Albumin TSH Urine WBC (Auto) Salicylates 03/07/17 03/07/17 03/07/17 05:21 11:36 17:49 WBC RBC Hgb Hct MCV MCH RDW Plt Count Lymph % (Auto) [place] % (Auto) Eos % (Auto) Seg Neutrophils % Seg Neuts % (Manual) Lymphocytes % (Manual) Seg Neutrophils # Seg Neutrophils # Man Lymphocytes # (Manual) APTT POC ABG pH ABG pH POC ABG pCO2 POC ABG pO2 ABG pO2 ABG HCO3 ABG Base Excess ABG Hemoglobin VBG pH Oxyhemoglobin Sodium Potassium Chloride Carbon Dioxide BUN Creatinine Glucose POC Glucose 159 H 137 H 158 H Lactic Acid Calcium AST ALT Alkaline Phosphatase CK-MB (CK-2) CK-MB (CK-2) Rel Index Total Protein Albumin TSH Urine WBC (Auto) Salicylates 03/08/17 03/08/17 03/08/17 05:51 13:58 23:50 WBC RBC Hgb Hct MCV MCH RDW Plt Count Lymph % (Auto) [place] % (Auto) Eos % (Auto) Seg Neutrophils % Seg Neuts % (Manual) Lymphocytes % (Manual) Seg Neutrophils # Seg Neutrophils # Man Lymphocytes # (Manual) APTT POC ABG pH ABG pH POC ABG pCO2 POC ABG pO2 ABG pO2 ABG HCO3 ABG Base Excess ABG Hemoglobin VBG pH Oxyhemoglobin Sodium Potassium Chloride Carbon Dioxide BUN Creatinine Glucose POC Glucose 122 H 182 H 114 H Lactic Acid Calcium AST ALT Alkaline Phosphatase CK-MB (CK-2) CK-MB (CK-2) Rel Index Total Protein Albumin TSH Urine WBC (Auto) Salicylates 03/09/17 03/09/17 03/09/17 05:21 05:51 05:51 WBC RBC 3.61 L Hgb 9.5 L Hct 28.3 L MCV 79 L MCH 26 L RDW 17.8 H Plt Count Lymph % (Auto) [place] % (Auto) Eos % (Auto) Seg Neutrophils % Seg Neuts % (Manual) Lymphocytes % (Manual) Seg Neutrophils # Seg Neutrophils # Man Lymphocytes # (Manual) APTT POC ABG pH ABG pH POC ABG pCO2 POC ABG pO2 ABG pO2 ABG HCO3 ABG Base Excess ABG Hemoglobin VBG pH Oxyhemoglobin Sodium 134 L Potassium Chloride 95.5 L Carbon Dioxide BUN 33 H Creatinine 0.5 L Glucose 143 H POC Glucose 153 H Lactic Acid Calcium AST ALT Alkaline Phosphatase CK-MB (CK-2) CK-MB (CK-2) Rel Index Total Protein Albumin TSH Urine WBC (Auto) Salicylates 03/09/17 03/09/17 03/09/17 12:10 18:13 21:00 WBC RBC Hgb Hct MCV MCH RDW Plt Count Lymph % (Auto) [place] % (Auto) Eos % (Auto) Seg Neutrophils % Seg Neuts % (Manual) Lymphocytes % (Manual) Seg Neutrophils # Seg Neutrophils # Man Lymphocytes # (Manual) APTT POC ABG pH ABG pH POC ABG pCO2 POC ABG pO2 ABG pO2 ABG HCO3 ABG Base Excess ABG Hemoglobin VBG pH Oxyhemoglobin Sodium Potassium Chloride Carbon Dioxide BUN Creatinine Glucose POC Glucose 203 H 221 H 198 H Lactic Acid Calcium AST ALT Alkaline Phosphatase CK-MB (CK-2) CK-MB (CK-2) Rel Index Total Protein Albumin TSH Urine WBC (Auto) Salicylates 03/09/17 03/10/17 03/10/17 23:58 05:09 05:09 WBC RBC Hgb 10.3 L Hct 30.5 L MCV 78 L MCH 26 L RDW 17.9 H Plt Count Lymph % (Auto) [place] % (Auto) 10.0 H Eos % (Auto) 6.0 H Seg Neutrophils % Seg Neuts % (Manual) Lymphocytes % (Manual) Seg Neutrophils # Seg Neutrophils # Man Lymphocytes # (Manual) APTT POC ABG pH ABG pH POC ABG pCO2 POC ABG pO2 ABG pO2 ABG HCO3 ABG Base Excess ABG Hemoglobin VBG pH Oxyhemoglobin Sodium 132 L Potassium Chloride 92.2 L Carbon Dioxide BUN 33 H Creatinine 0.5 L Glucose 50 L POC Glucose 167 H Lactic Acid Calcium AST ALT Alkaline Phosphatase CK-MB (CK-2) CK-MB (CK-2) Rel Index Total Protein Albumin TSH Urine WBC (Auto) Salicylates 03/10/17 03/10/17 03/10/17 05:33 05:34 11:48 WBC RBC Hgb Hct MCV MCH RDW Plt Count Lymph % (Auto) [place] % (Auto) Eos % (Auto) Seg Neutrophils % Seg Neuts % (Manual) Lymphocytes % (Manual) Seg Neutrophils # Seg Neutrophils # Man Lymphocytes # (Manual) APTT POC ABG pH ABG pH POC ABG pCO2 POC ABG pO2 ABG pO2 ABG HCO3 ABG Base Excess ABG Hemoglobin VBG pH Oxyhemoglobin Sodium Potassium Chloride Carbon Dioxide BUN Creatinine Glucose POC Glucose 52 L 53 L 148 H Lactic Acid Calcium AST ALT Alkaline Phosphatase CK-MB (CK-2) CK-MB (CK-2) Rel Index Total Protein Albumin TSH Urine WBC (Auto) Salicylates 03/10/17 03/10/17 03/11/17 17:53 23:47 05:18 WBC RBC Hgb Hct MCV MCH RDW Plt Count Lymph % (Auto) [place] % (Auto) Eos % (Auto) Seg Neutrophils % Seg Neuts % (Manual) Lymphocytes % (Manual) Seg Neutrophils # Seg Neutrophils # Man Lymphocytes # (Manual) APTT POC ABG pH ABG pH POC ABG pCO2 POC ABG pO2 ABG pO2 ABG HCO3 ABG Base Excess ABG Hemoglobin VBG pH Oxyhemoglobin Sodium Potassium Chloride Carbon Dioxide BUN Creatinine Glucose POC Glucose 189 H 398 H 126 H Lactic Acid Calcium AST ALT Alkaline Phosphatase CK-MB (CK-2) CK-MB (CK-2) Rel Index Total Protein Albumin TSH Urine WBC (Auto) Salicylates 03/11/17 03/11/17 03/11/17 11:53 17:30 23:10 WBC RBC Hgb Hct MCV MCH RDW Plt Count Lymph % (Auto) [place] % (Auto) Eos % (Auto) Seg Neutrophils % Seg Neuts % (Manual) Lymphocytes % (Manual) Seg Neutrophils # Seg Neutrophils # Man Lymphocytes # (Manual) APTT POC ABG pH ABG pH POC ABG pCO2 POC ABG pO2 ABG pO2 ABG HCO3 ABG Base Excess ABG Hemoglobin VBG pH Oxyhemoglobin Sodium Potassium Chloride Carbon Dioxide BUN Creatinine Glucose POC Glucose 198 H 142 H 244 H Lactic Acid Calcium AST ALT Alkaline Phosphatase CK-MB (CK-2) CK-MB (CK-2) Rel Index Total Protein Albumin TSH Urine WBC (Auto) Salicylates 03/12/17 03/12/17 03/12/17 04:36 11:49 17:23 WBC RBC Hgb Hct MCV MCH RDW Plt Count Lymph % (Auto) [place] % (Auto) Eos % (Auto) Seg Neutrophils % Seg Neuts % (Manual) Lymphocytes % (Manual) Seg Neutrophils # Seg Neutrophils # Man Lymphocytes # (Manual) APTT POC ABG pH ABG pH POC ABG pCO2 POC ABG pO2 ABG pO2 ABG HCO3 ABG Base Excess ABG Hemoglobin VBG pH Oxyhemoglobin Sodium Potassium Chloride Carbon Dioxide BUN Creatinine Glucose POC Glucose 205 H 197 H 209 H Lactic Acid Calcium AST ALT Alkaline Phosphatase CK-MB (CK-2) CK-MB (CK-2) Rel Index Total Protein Albumin TSH Urine WBC (Auto) Salicylates 03/12/17 03/13/17 03/13/17 23:51 05:32 11:43 WBC RBC Hgb Hct MCV MCH RDW Plt Count Lymph % (Auto) [place] % (Auto) Eos % (Auto) Seg Neutrophils % Seg Neuts % (Manual) Lymphocytes % (Manual) Seg Neutrophils # Seg Neutrophils # Man Lymphocytes # (Manual) APTT POC ABG pH ABG pH POC ABG pCO2 POC ABG pO2 ABG pO2 ABG HCO3 ABG Base Excess ABG Hemoglobin VBG pH Oxyhemoglobin Sodium Potassium Chloride Carbon Dioxide BUN Creatinine Glucose POC Glucose 210 H 154 H 164 H Lactic Acid Calcium AST ALT Alkaline Phosphatase CK-MB (CK-2) CK-MB (CK-2) Rel Index Total Protein Albumin TSH Urine WBC (Auto) Salicylates 03/13/17 03/13/17 03/14/17 17:11 23:26 05:42 WBC RBC Hgb Hct MCV MCH RDW Plt Count Lymph % (Auto) [place] % (Auto) Eos % (Auto) Seg Neutrophils % Seg Neuts % (Manual) Lymphocytes % (Manual) Seg Neutrophils # Seg Neutrophils # Man Lymphocytes # (Manual) APTT POC ABG pH ABG pH POC ABG pCO2 POC ABG pO2 ABG pO2 ABG HCO3 ABG Base Excess ABG Hemoglobin VBG pH Oxyhemoglobin Sodium Potassium Chloride Carbon Dioxide BUN Creatinine Glucose POC Glucose 195 H 240 H 230 H Lactic Acid Calcium AST ALT Alkaline Phosphatase CK-MB (CK-2) CK-MB (CK-2) Rel Index Total Protein Albumin TSH Urine WBC (Auto) Salicylates 03/14/17 03/14/17 03/14/17 14:04 17:34 23:42 WBC RBC Hgb Hct MCV MCH RDW Plt Count Lymph % (Auto) [place] % (Auto) Eos % (Auto) Seg Neutrophils % Seg Neuts % (Manual) Lymphocytes % (Manual) Seg Neutrophils # Seg Neutrophils # Man Lymphocytes # (Manual) APTT POC ABG pH ABG pH POC ABG pCO2 POC ABG pO2 ABG pO2 ABG HCO3 ABG Base Excess ABG Hemoglobin VBG pH Oxyhemoglobin Sodium Potassium Chloride Carbon Dioxide BUN Creatinine Glucose POC Glucose 227 H 186 H 225 H Lactic Acid Calcium AST ALT Alkaline Phosphatase CK-MB (CK-2) CK-MB (CK-2) Rel Index Total Protein Albumin TSH Urine WBC (Auto) Salicylates 03/15/17 03/15/17 03/15/17 05:21 17:13 21:37 WBC RBC Hgb Hct MCV MCH RDW Plt Count Lymph % (Auto) [place] % (Auto) Eos % (Auto) Seg Neutrophils % Seg Neuts % (Manual) Lymphocytes % (Manual) Seg Neutrophils # Seg Neutrophils # Man Lymphocytes # (Manual) APTT POC ABG pH ABG pH POC ABG pCO2 POC ABG pO2 ABG pO2 ABG HCO3 ABG Base Excess ABG Hemoglobin VBG pH Oxyhemoglobin Sodium Potassium Chloride Carbon Dioxide BUN Creatinine Glucose POC Glucose 244 H 203 H 216 H Lactic Acid Calcium AST ALT Alkaline Phosphatase CK-MB (CK-2) CK-MB (CK-2) Rel Index Total Protein Albumin TSH Urine WBC (Auto) Salicylates 03/16/17 03/16/17 03/16/17 05:52 18:07 21:54 WBC RBC Hgb Hct MCV MCH RDW Plt Count Lymph % (Auto) [place] % (Auto) Eos % (Auto) Seg Neutrophils % Seg Neuts % (Manual) Lymphocytes % (Manual) Seg Neutrophils # Seg Neutrophils # Man Lymphocytes # (Manual) APTT POC ABG pH ABG pH POC ABG pCO2 POC ABG pO2 ABG pO2 ABG HCO3 ABG Base Excess ABG Hemoglobin VBG pH Oxyhemoglobin Sodium Potassium Chloride Carbon Dioxide BUN Creatinine Glucose POC Glucose 248 H 254 H 244 H Lactic Acid Calcium AST ALT Alkaline Phosphatase CK-MB (CK-2) CK-MB (CK-2) Rel Index Total Protein Albumin TSH Urine WBC (Auto) Salicylates 03/17/17 03/17/17 03/17/17 07:07 07:42 07:43 WBC RBC Hgb 9.7 L Hct 29.1 L MCV 78 L MCH 26 L RDW 17.4 H Plt Count Lymph % (Auto) [place] % (Auto) Eos % (Auto) Seg Neutrophils % Seg Neuts % (Manual) Lymphocytes % (Manual) Seg Neutrophils # Seg Neutrophils # Man Lymphocytes # (Manual) APTT POC ABG pH ABG pH POC ABG pCO2 POC ABG pO2 ABG pO2 ABG HCO3 ABG Base Excess ABG Hemoglobin VBG pH Oxyhemoglobin Sodium Potassium Chloride 96.6 L Carbon Dioxide BUN 30 H Creatinine 0.5 L Glucose 251 H POC Glucose 222 H Lactic Acid Calcium AST ALT Alkaline Phosphatase CK-MB (CK-2) CK-MB (CK-2) Rel Index Total Protein Albumin TSH Urine WBC (Auto) Salicylates 03/17/17 03/17/17 03/18/17 14:08 21:20 14:24 WBC RBC Hgb Hct MCV MCH RDW Plt Count Lymph % (Auto) [place] % (Auto) Eos % (Auto) Seg Neutrophils % Seg Neuts % (Manual) Lymphocytes % (Manual) Seg Neutrophils # Seg Neutrophils # Man Lymphocytes # (Manual) APTT POC ABG pH ABG pH POC ABG pCO2 POC ABG pO2 ABG pO2 ABG HCO3 ABG Base Excess ABG Hemoglobin VBG pH Oxyhemoglobin Sodium Potassium Chloride Carbon Dioxide BUN Creatinine Glucose POC Glucose 281 H 239 H 195 H Lactic Acid Calcium AST ALT Alkaline Phosphatase CK-MB (CK-2) CK-MB (CK-2) Rel Index Total Protein Albumin TSH Urine WBC (Auto) Salicylates 03/18/17 03/19/17 03/19/17 21:37 04:57 14:23 WBC RBC Hgb Hct MCV MCH RDW Plt Count Lymph % (Auto) [place] % (Auto) Eos % (Auto) Seg Neutrophils % Seg Neuts % (Manual) Lymphocytes % (Manual) Seg Neutrophils # Seg Neutrophils # Man Lymphocytes # (Manual) APTT POC ABG pH ABG pH POC ABG pCO2 POC ABG pO2 ABG pO2 ABG HCO3 ABG Base Excess ABG Hemoglobin VBG pH Oxyhemoglobin Sodium Potassium Chloride Carbon Dioxide BUN Creatinine Glucose POC Glucose 227 H 205 H 277 H Lactic Acid Calcium AST ALT Alkaline Phosphatase CK-MB (CK-2) CK-MB (CK-2) Rel Index Total Protein Albumin TSH Urine WBC (Auto) Salicylates 03/19/17 03/19/17 03/20/17 20:31 21:47 04:55 WBC RBC Hgb Hct MCV MCH RDW Plt Count Lymph % (Auto) [place] % (Auto) Eos % (Auto) Seg Neutrophils % Seg Neuts % (Manual) Lymphocytes % (Manual) Seg Neutrophils # Seg Neutrophils # Man Lymphocytes # (Manual) APTT POC ABG pH ABG pH POC ABG pCO2 POC ABG pO2 ABG pO2 ABG HCO3 ABG Base Excess ABG Hemoglobin VBG pH Oxyhemoglobin Sodium Potassium Chloride Carbon Dioxide BUN Creatinine Glucose POC Glucose 256 H 270 H 202 H Lactic Acid Calcium AST ALT Alkaline Phosphatase CK-MB (CK-2) CK-MB (CK-2) Rel Index Total Protein Albumin TSH Urine WBC (Auto) Salicylates 03/20/17 03/20/17 03/21/17 14:09 21:40 05:09 WBC RBC Hgb Hct MCV MCH RDW Plt Count Lymph % (Auto) [place] % (Auto) Eos % (Auto) Seg Neutrophils % Seg Neuts % (Manual) Lymphocytes % (Manual) Seg Neutrophils # Seg Neutrophils # Man Lymphocytes # (Manual) APTT POC ABG pH ABG pH POC ABG pCO2 POC ABG pO2 ABG pO2 ABG HCO3 ABG Base Excess ABG Hemoglobin VBG pH Oxyhemoglobin Sodium Potassium Chloride Carbon Dioxide BUN Creatinine Glucose POC Glucose 200 H 214 H 233 H Lactic Acid Calcium AST ALT Alkaline Phosphatase CK-MB (CK-2) CK-MB (CK-2) Rel Index Total Protein Albumin TSH Urine WBC (Auto) Salicylates 03/21/17 03/21/17 03/22/17 14:06 21:26 05:43 WBC RBC Hgb Hct MCV MCH RDW Plt Count Lymph % (Auto) [place] % (Auto) Eos % (Auto) Seg Neutrophils % Seg Neuts % (Manual) Lymphocytes % (Manual) Seg Neutrophils # Seg Neutrophils # Man Lymphocytes # (Manual) APTT POC ABG pH ABG pH POC ABG pCO2 POC ABG pO2 ABG pO2 ABG HCO3 ABG Base Excess ABG Hemoglobin VBG pH Oxyhemoglobin Sodium Potassium Chloride Carbon Dioxide BUN Creatinine Glucose POC Glucose 250 H 155 H 251 H Lactic Acid Calcium AST ALT Alkaline Phosphatase CK-MB (CK-2) CK-MB (CK-2) Rel Index Total Protein Albumin TSH Urine WBC (Auto) Salicylates 03/22/17 03/22/17 03/23/17 13:46 21:16 00:23 WBC RBC Hgb Hct MCV MCH RDW Plt Count Lymph % (Auto) [place] % (Auto) Eos % (Auto) Seg Neutrophils % Seg Neuts % (Manual) Lymphocytes % (Manual) Seg Neutrophils # Seg Neutrophils # Man Lymphocytes # (Manual) APTT POC ABG pH ABG pH POC ABG pCO2 POC ABG pO2 ABG pO2 ABG HCO3 ABG Base Excess ABG Hemoglobin VBG pH Oxyhemoglobin Sodium Potassium Chloride Carbon Dioxide BUN Creatinine Glucose POC Glucose 269 H 197 H 126 H Lactic Acid Calcium AST ALT Alkaline Phosphatase CK-MB (CK-2) CK-MB (CK-2) Rel Index Total Protein Albumin TSH Urine WBC (Auto) Salicylates 03/23/17 03/23/17 03/23/17 05:39 14:06 21:39 WBC RBC Hgb Hct MCV MCH RDW Plt Count Lymph % (Auto) [place] % (Auto) Eos % (Auto) Seg Neutrophils % Seg Neuts % (Manual) Lymphocytes % (Manual) Seg Neutrophils # Seg Neutrophils # Man Lymphocytes # (Manual) APTT POC ABG pH ABG pH POC ABG pCO2 POC ABG pO2 ABG pO2 ABG HCO3 ABG Base Excess ABG Hemoglobin VBG pH Oxyhemoglobin Sodium Potassium Chloride Carbon Dioxide BUN Creatinine Glucose POC Glucose 234 H 241 H 248 H Lactic Acid Calcium AST ALT Alkaline Phosphatase CK-MB (CK-2) CK-MB (CK-2) Rel Index Total Protein Albumin TSH Urine WBC (Auto) Salicylates 03/24/17 03/24/17 03/25/17 05:06 21:46 05:38 WBC RBC Hgb Hct MCV MCH RDW Plt Count Lymph % (Auto) [place] % (Auto) Eos % (Auto) Seg Neutrophils % Seg Neuts % (Manual) Lymphocytes % (Manual) Seg Neutrophils # Seg Neutrophils # Man Lymphocytes # (Manual) APTT POC ABG pH ABG pH POC ABG pCO2 POC ABG pO2 ABG pO2 ABG HCO3 ABG Base Excess ABG Hemoglobin VBG pH Oxyhemoglobin Sodium Potassium Chloride Carbon Dioxide BUN Creatinine Glucose POC Glucose 232 H 276 H 242 H Lactic Acid Calcium AST ALT Alkaline Phosphatase CK-MB (CK-2) CK-MB (CK-2) Rel Index Total Protein Albumin TSH Urine WBC (Auto) Salicylates 03/25/17 03/25/17 03/26/17 14:30 23:14 13:53 WBC RBC Hgb Hct MCV MCH RDW Plt Count Lymph % (Auto) [place] % (Auto) Eos % (Auto) Seg Neutrophils % Seg Neuts % (Manual) Lymphocytes % (Manual) Seg Neutrophils # Seg Neutrophils # Man Lymphocytes # (Manual) APTT POC ABG pH ABG pH POC ABG pCO2 POC ABG pO2 ABG pO2 ABG HCO3 ABG Base Excess ABG Hemoglobin VBG pH Oxyhemoglobin Sodium Potassium Chloride Carbon Dioxide BUN Creatinine Glucose POC Glucose 246 H 208 H 195 H Lactic Acid Calcium AST ALT Alkaline Phosphatase CK-MB (CK-2) CK-MB (CK-2) Rel Index Total Protein Albumin TSH Urine WBC (Auto) Salicylates 03/26/17 03/27/17 03/27/17 21:58 05:18 14:57 WBC RBC Hgb Hct MCV MCH RDW Plt Count Lymph % (Auto) [place] % (Auto) Eos % (Auto) Seg Neutrophils % Seg Neuts % (Manual) Lymphocytes % (Manual) Seg Neutrophils # Seg Neutrophils # Man Lymphocytes # (Manual) APTT POC ABG pH ABG pH POC ABG pCO2 POC ABG pO2 ABG pO2 ABG HCO3 ABG Base Excess ABG Hemoglobin VBG pH Oxyhemoglobin Sodium Potassium Chloride Carbon Dioxide BUN Creatinine Glucose POC Glucose 241 H 199 H 269 H Lactic Acid Calcium AST ALT Alkaline Phosphatase CK-MB (CK-2) CK-MB (CK-2) Rel Index Total Protein Albumin TSH Urine WBC (Auto) Salicylates 03/27/17 03/28/17 03/28/17 21:33 13:52 21:29 WBC RBC Hgb Hct MCV MCH RDW Plt Count Lymph % (Auto) [place] % (Auto) Eos % (Auto) Seg Neutrophils % Seg Neuts % (Manual) Lymphocytes % (Manual) Seg Neutrophils # Seg Neutrophils # Man Lymphocytes # (Manual) APTT POC ABG pH ABG pH POC ABG pCO2 POC ABG pO2 ABG pO2 ABG HCO3 ABG Base Excess ABG Hemoglobin VBG pH Oxyhemoglobin Sodium Potassium Chloride Carbon Dioxide BUN Creatinine Glucose POC Glucose 214 H 243 H 286 H Lactic Acid Calcium AST ALT Alkaline Phosphatase CK-MB (CK-2) CK-MB (CK-2) Rel Index Total Protein Albumin TSH Urine WBC (Auto) Salicylates 03/29/17 03/29/17 03/29/17 04:32 04:32 13:58 WBC RBC Hgb 10.6 L Hct 32.9 L MCV 78 L MCH 25 L RDW 17.6 H Plt Count Lymph % (Auto) 38.0 H Verm[place] % (Auto) 9.7 H Eos % (Auto) Seg Neutrophils % Seg Neuts % (Manual) Lymphocytes % (Manual) Seg Neutrophils # Seg Neutrophils # Man Lymphocytes # (Manual) APTT POC ABG pH ABG pH POC ABG pCO2 POC ABG pO2 ABG pO2 ABG HCO3 ABG Base Excess ABG Hemoglobin VBG pH Oxyhemoglobin Sodium 132 L Potassium Chloride 94.0 L Carbon Dioxide BUN 28 H Creatinine 0.5 L Glucose 236 H POC Glucose 171 H Lactic Acid Calcium AST ALT 71 H Alkaline Phosphatase 391 H CK-MB (CK-2) CK-MB (CK-2) Rel Index Total Protein 8.3 H Albumin 2.9 L TSH Urine WBC (Auto) Salicylates 03/29/17 03/30/17 03/30/17 20:59 06:07 11:52 WBC RBC Hgb Hct MCV MCH RDW Plt Count Lymph % (Auto) [place] % (Auto) Eos % (Auto) Seg Neutrophils % Seg Neuts % (Manual) Lymphocytes % (Manual) Seg Neutrophils # Seg Neutrophils # Man Lymphocytes # (Manual) APTT POC ABG pH ABG pH POC ABG pCO2 POC ABG pO2 ABG pO2 ABG HCO3 ABG Base Excess ABG Hemoglobin VBG pH Oxyhemoglobin Sodium Potassium Chloride Carbon Dioxide BUN Creatinine Glucose POC Glucose 215 H 259 H 197 H Lactic Acid Calcium AST ALT Alkaline Phosphatase CK-MB (CK-2) CK-MB (CK-2) Rel Index Total Protein Albumin TSH Urine WBC (Auto) Salicylates 03/30/17 03/31/17 03/31/17 21:34 05:42 14:34 WBC RBC Hgb Hct MCV MCH RDW Plt Count Lymph % (Auto) [place] % (Auto) Eos % (Auto) Seg Neutrophils % Seg Neuts % (Manual) Lymphocytes % (Manual) Seg Neutrophils # Seg Neutrophils # Man Lymphocytes # (Manual) APTT POC ABG pH ABG pH POC ABG pCO2 POC ABG pO2 ABG pO2 ABG HCO3 ABG Base Excess ABG Hemoglobin VBG pH Oxyhemoglobin Sodium Potassium Chloride Carbon Dioxide BUN Creatinine Glucose POC Glucose 207 H 184 H 213 H Lactic Acid Calcium AST ALT Alkaline Phosphatase CK-MB (CK-2) CK-MB (CK-2) Rel Index Total Protein Albumin TSH Urine WBC (Auto) Salicylates 03/31/17 04/01/17 04/01/17 21:32 05:53 13:48 WBC RBC Hgb Hct MCV MCH RDW Plt Count Lymph % (Auto) [place] % (Auto) Eos % (Auto) Seg Neutrophils % Seg Neuts % (Manual) Lymphocytes % (Manual) Seg Neutrophils # Seg Neutrophils # Man Lymphocytes # (Manual) APTT POC ABG pH ABG pH POC ABG pCO2 POC ABG pO2 ABG pO2 ABG HCO3 ABG Base Excess ABG Hemoglobin VBG pH Oxyhemoglobin Sodium Potassium Chloride Carbon Dioxide BUN Creatinine Glucose POC Glucose 249 H 225 H 256 H Lactic Acid Calcium AST ALT Alkaline Phosphatase CK-MB (CK-2) CK-MB (CK-2) Rel Index Total Protein Albumin TSH Urine WBC (Auto) Salicylates 04/01/17 04/02/17 04/02/17 21:34 05:32 14:05 WBC RBC Hgb Hct MCV MCH RDW Plt Count Lymph % (Auto) [place] % (Auto) Eos % (Auto) Seg Neutrophils % Seg Neuts % (Manual) Lymphocytes % (Manual) Seg Neutrophils # Seg Neutrophils # Man Lymphocytes # (Manual) APTT POC ABG pH ABG pH POC ABG pCO2 POC ABG pO2 ABG pO2 ABG HCO3 ABG Base Excess ABG Hemoglobin VBG pH Oxyhemoglobin Sodium Potassium Chloride Carbon Dioxide BUN Creatinine Glucose POC Glucose 292 H 220 H 187 H Lactic Acid Calcium AST ALT Alkaline Phosphatase CK-MB (CK-2) CK-MB (CK-2) Rel Index Total Protein Albumin TSH Urine WBC (Auto) Salicylates 04/02/17 04/03/17 04/03/17 21:57 04:49 14:12 WBC RBC Hgb Hct MCV MCH RDW Plt Count Lymph % (Auto) [place] % (Auto) Eos % (Auto) Seg Neutrophils % Seg Neuts % (Manual) Lymphocytes % (Manual) Seg Neutrophils # Seg Neutrophils # Man Lymphocytes # (Manual) APTT POC ABG pH ABG pH POC ABG pCO2 POC ABG pO2 ABG pO2 ABG HCO3 ABG Base Excess ABG Hemoglobin VBG pH Oxyhemoglobin Sodium Potassium Chloride Carbon Dioxide BUN Creatinine Glucose POC Glucose 285 H 256 H 197 H Lactic Acid Calcium AST ALT Alkaline Phosphatase CK-MB (CK-2) CK-MB (CK-2) Rel Index Total Protein Albumin TSH Urine WBC (Auto) Salicylates 04/03/17 04/04/17 21:11 05:20 WBC RBC Hgb Hct MCV MCH RDW Plt Count Lymph % (Auto) [place] % (Auto) Eos % (Auto) Seg Neutrophils % Seg Neuts % (Manual) Lymphocytes % (Manual) Seg Neutrophils # Seg Neutrophils # Man Lymphocytes # (Manual) APTT POC ABG pH ABG pH POC ABG pCO2 POC ABG pO2 ABG pO2 ABG HCO3 ABG Base Excess ABG Hemoglobin VBG pH Oxyhemoglobin Sodium Potassium Chloride Carbon Dioxide BUN Creatinine Glucose POC Glucose 166 H 228 H Lactic Acid Calcium AST ALT Alkaline Phosphatase CK-MB (CK-2) CK-MB (CK-2) Rel Index Total Protein Albumin TSH Urine WBC (Auto) Salicylates
[2017-04-05] MEDS: HumuLIN R SUB-Q SCH ×3 (07:01→22:00)
[2017-04-05] MEDS: SYNTHROID PO SCH (07:03)
[2017-04-05] MEDS: HEPARIN SUB-Q SCH ×2 (10:12→22:00)
[2017-04-05] MEDS: PEPCID PO SCH ×2 (10:13→23:04)
--- NOTE | 2017-04-05 15:07 | Progress Note ---
Assessment and Plan Imp: 1. Hypoglycemia/hypothermia -> suspect due to too much insulin 2. Hypothyroidism; doubt myxedema coma with normal free T4 3. Acute respiratory failure, hypoxia 4. UTI/SIRS 5. Metabolic encephalopathy Rec: 1. GI/DVT PPx/TFs 2. Reviewed chart; ethics note 01/18/17 recommended AND and "hospice"; trying to get guardianship to sign necessary orders for this (however, I was told they are not willing to sign for withdrawal of ventilator); further care felt to be futile and would only prolong potential suffering without affecting ultimate outcome 3. Comfort care, no escalation of care; would not check any further labs, etc. 4. Poor prognosis Unable to locate family. Subjective Date of service: 04/05/17 Principal diagnosis: Acute respiratory failure,encephalopathy Interval history: No events. On vent. Unresponsive. Active Medications Acetaminophen (Tylenol) 650 mg FEEDTUBE Q6H PRN PRN Reason: Non Cardiac Pain Or Temp>101 Last Admin: 04/01/17 10:30 Dose: 650 mg Lipase/Protease/Amylase (Pancreaze Dr 10,500 Unit) 1 each FEEDTUBE PRN PRN PRN Reason: For Clogged Feeding Tube Famotidine (Pepcid) 20 mg PO BID [facility] Last Admin: 04/05/17 10:13 Dose: 20 mg Heparin Sodium (Porcine) (Heparin) 5,000 unit SUB-Q Q12HR [facility] Last Admin: 04/05/17 10:12 Dose: 5,000 unit Hydrophilic Ointment (Vaseline Lip Therapy) 1 applic TP Q2HR PRN PRN Reason: Dry Lips Insulin Detemir (Levemir) 15 units SUB-Q DAILY [facility] Last Admin: 03/09/17 10:15 Dose: 15 units Insulin Human Regular (Novolin R) 0 units SUB-Q Q8HR PAOLO PRN Reason: Protocol Last Admin: 04/05/17 07:01 Dose: 2 units Levothyroxine Sodium (Synthroid) 100 mcg PO DAILY@0600 [facility] Last Admin: 04/05/17 07:03 Dose: 100 mcg Multi-Ingred Cream/Lotion/Oil/Oint (Artificial Tears Ophth Oint) 1 applic OU Q4HR PRN PRN Reason: Dry Eye(s) Simple Syrup (Simple Syrup) 15 ml FEEDTUBE PRN PRN PRN Reason: Hypoglycemia Last Admin: 02/28/17 18:56 Dose: 15 ml Simple Syrup (Simple Syrup) 30 ml FEEDTUBE PRN PRN PRN Reason: Hypoglycemia Sodium Bicarbonate (Sodium Bicarbonate) 325 mg FEEDTUBE PRN PRN PRN Reason: For Clogged Feeding Tube Objective Vital Signs - 12hr 04/05/17 04/05/17 04/05/17 03:07 04:00 06:00 Temperature 99.0 F Pulse Rate 68 66 69 Pulse Rate [ From Monitor] Respiratory 13 15 Rate Blood Pressure 111/75 111/75 111/75 O2 Sat by Pulse 100 100 100 Oximetry 04/05/17 04/05/17 04/05/17 07:19 08:00 09:25 Temperature 97.6 F Pulse Rate 70 Pulse Rate [ 67 From Monitor] Respiratory 18 22 Rate Blood Pressure 111/75 O2 Sat by Pulse 99 100 Oximetry 04/05/17 04/05/17 11:43 12:45 Temperature 98.2 F Pulse Rate 64 Pulse Rate [ From Monitor] Respiratory 25 H Rate Blood Pressure 119/76 O2 Sat by Pulse 100 Oximetry Constitutional: no acute distress, other Eyes: non-icteric ENT: oropharynx moist Neck: supple, no JVD Effort: normal Ascultation: Bilateral: clear Cardiovascular: regular rate and rhythm Gastrointestinal: normoactive bowel sounds, soft, non-tender, non-distended Integumentary: normal Extremities: no cyanosis, no edema, pink and warm Neurologic: pupils equal and round, other (minimal responsive,no posturing, otherwise no changes, not following any commands. ) Psychiatric: other (unable to obtain) CBC and BMP: 03/29/17 04:32 03/29/17 04:32 ABG, PT/INR, D-dimer: ABG POC ABG pH 7.442 (7.35-7.45) 01/31/17 18:55 ABG pH 7.420 pH Units (7.350-7.450) 01/17/17 04:35 POC ABG pCO2 32.8 (35-45) L 01/31/17 18:55 ABG pCO2 34.5 mm Hg 01/17/17 04:35 POC ABG pO2 82 (80-105) 01/31/17 18:55 ABG pO2 160.3 mm Hg (80.0-90.0) H 01/17/17 04:35 POC ABG HCO3 22.4 01/31/17 18:55 POC ABG Total CO2 23 01/31/17 18:55 POC ABG O2 Sat 97 01/31/17 18:55 ABG O2 Saturation 99.0 % (95.0-99.0) 01/17/17 04:35 PT/INR, D-dimer PT 14.1 Sec. (12.2-14.9) 01/17/17 04:10 INR 1.04 (0.87-1.13) 01/17/17 04:10 Abnormal lab findings: Abnormal Labs 01/09/17 01/09/17 01/09/17 10:16 10:16 10:16 WBC RBC Hgb 9.7 L Hct 28.4 L MCV 76 L MCH 26 L RDW 17.2 H Plt Count 448 H Lymph % (Auto) Gilliam % (Auto) Eos % (Auto) Seg Neutrophils % 79.5 H Seg Neuts % (Manual) Lymphocytes % (Manual) Seg Neutrophils # Seg Neutrophils # Man Lymphocytes # (Manual) APTT 39.6 H POC ABG pH ABG pH POC ABG pCO2 POC ABG pO2 ABG pO2 ABG HCO3 ABG Base Excess ABG Hemoglobin VBG pH Oxyhemoglobin Sodium 132 L Potassium Chloride 96.7 L Carbon Dioxide 21 L BUN 34 H Creatinine Glucose POC Glucose Lactic Acid Calcium 8.3 L AST ALT Alkaline Phosphatase 151 H CK-MB (CK-2) 7.1 H CK-MB (CK-2) Rel Index 5.2 H Total Protein Albumin 3.3 L TSH Urine WBC (Auto) Salicylates 01/09/17 01/09/17 01/09/17 10:16 10:16 10:16 WBC RBC Hgb Hct MCV MCH RDW Plt Count Lymph % (Auto) Gilliam % (Auto) Eos % (Auto) Seg Neutrophils % Seg Neuts % (Manual) Lymphocytes % (Manual) Seg Neutrophils # Seg Neutrophils # Man Lymphocytes # (Manual) APTT POC ABG pH ABG pH POC ABG pCO2 POC ABG pO2 ABG pO2 ABG HCO3 ABG Base Excess ABG Hemoglobin VBG pH 7.284 L Oxyhemoglobin Sodium Potassium Chloride Carbon Dioxide BUN Creatinine Glucose POC Glucose Lactic Acid Calcium AST ALT Alkaline Phosphatase CK-MB (CK-2) CK-MB (CK-2) Rel Index Total Protein Albumin TSH 52.800 H Urine WBC (Auto) Salicylates < 0.3 L 01/09/17 01/09/17 01/09/17 10:23 11:14 12:49 WBC RBC Hgb Hct MCV MCH RDW Plt Count Lymph % (Auto) Gilliam % (Auto) Eos % (Auto) Seg Neutrophils % Seg Neuts % (Manual) Lymphocytes % (Manual) Seg Neutrophils # Seg Neutrophils # Man Lymphocytes # (Manual) APTT POC ABG pH ABG pH POC ABG pCO2 POC ABG pO2 643 H ABG pO2 ABG HCO3 ABG Base Excess ABG Hemoglobin VBG pH Oxyhemoglobin Sodium Potassium Chloride Carbon Dioxide BUN Creatinine Glucose POC Glucose < 40 L Lactic Acid Calcium AST ALT Alkaline Phosphatase CK-MB (CK-2) CK-MB (CK-2) Rel Index Total Protein Albumin TSH Urine WBC (Auto) 61.0 H Salicylates 01/09/17 01/09/17 01/09/17 13:13 14:21 15:09 WBC RBC Hgb Hct MCV MCH RDW Plt Count Lymph % (Auto) Gilliam % (Auto) Eos % (Auto) Seg Neutrophils % Seg Neuts % (Manual) Lymphocytes % (Manual) Seg Neutrophils # Seg Neutrophils # Man Lymphocytes # (Manual) APTT POC ABG pH ABG pH POC ABG pCO2 POC ABG pO2 ABG pO2 ABG HCO3 ABG Base Excess ABG Hemoglobin VBG pH Oxyhemoglobin Sodium Potassium Chloride Carbon Dioxide BUN Creatinine Glucose POC Glucose 128 H 65 L 120 H Lactic Acid Calcium AST ALT Alkaline Phosphatase CK-MB (CK-2) CK-MB (CK-2) Rel Index Total Protein Albumin TSH Urine WBC (Auto) Salicylates 01/09/17 01/09/17 01/10/17 16:28 17:14 04:30 WBC 24.1 H RBC 3.38 L Hgb 8.5 L Hct 26.0 L MCV 77 L MCH 25 L RDW 17.9 H Plt Count 474 H Lymph % (Auto) Gilliam % (Auto) Eos % (Auto) Seg Neutrophils % Seg Neuts % (Manual) 88.0 H Lymphocytes % (Manual) 4.0 L Seg Neutrophils # Seg Neutrophils # Man 21.2 H Lymphocytes # (Manual) 1.0 L APTT POC ABG pH ABG pH POC ABG pCO2 POC ABG pO2 ABG pO2 ABG HCO3 ABG Base Excess ABG Hemoglobin VBG pH Oxyhemoglobin Sodium Potassium Chloride Carbon Dioxide BUN Creatinine Glucose POC Glucose 44 L 112 H Lactic Acid Calcium AST ALT Alkaline Phosphatase CK-MB (CK-2) CK-MB (CK-2) Rel Index Total Protein Albumin TSH Urine WBC (Auto) Salicylates 01/10/17 01/10/17 01/10/17 04:30 05:41 05:45 WBC RBC Hgb Hct MCV MCH RDW Plt Count Lymph % (Auto) Gilliam % (Auto) Eos % (Auto) Seg Neutrophils % Seg Neuts % (Manual) Lymphocytes % (Manual) Seg Neutrophils # Seg Neutrophils # Man Lymphocytes # (Manual) APTT POC ABG pH ABG pH POC ABG pCO2 26.6 L POC ABG pO2 207 H ABG pO2 ABG HCO3 ABG Base Excess ABG Hemoglobin VBG pH Oxyhemoglobin Sodium Potassium Chloride Carbon Dioxide 17 L BUN 27 H Creatinine Glucose POC Glucose 68 L Lactic Acid Calcium 7.5 L AST ALT Alkaline Phosphatase CK-MB (CK-2) CK-MB (CK-2) Rel Index Total Protein Albumin TSH Urine WBC (Auto) Salicylates 01/10/17 01/10/17 01/10/17 07:47 10:50 13:41 WBC RBC Hgb Hct MCV MCH RDW Plt Count Lymph % (Auto) Gilliam % (Auto) Eos % (Auto) Seg Neutrophils % Seg Neuts % (Manual) Lymphocytes % (Manual) Seg Neutrophils # Seg Neutrophils # Man Lymphocytes # (Manual) APTT POC ABG pH ABG pH POC ABG pCO2 POC ABG pO2 ABG pO2 ABG HCO3 ABG Base Excess ABG Hemoglobin VBG pH Oxyhemoglobin Sodium Potassium Chloride Carbon Dioxide BUN Creatinine Glucose POC Glucose 148 H 165 H 114 H Lactic Acid Calcium AST ALT Alkaline Phosphatase CK-MB (CK-2) CK-MB (CK-2) Rel Index Total Protein Albumin TSH Urine WBC (Auto) Salicylates 01/10/17 01/10/17 01/10/17 20:20 21:39 23:24 WBC RBC Hgb Hct MCV MCH RDW Plt Count Lymph % (Auto) Gilliam % (Auto) Eos % (Auto) Seg Neutrophils % Seg Neuts % (Manual) Lymphocytes % (Manual) Seg Neutrophils # Seg Neutrophils # Man Lymphocytes # (Manual) APTT POC ABG pH ABG pH POC ABG pCO2 POC ABG pO2 ABG pO2 ABG HCO3 ABG Base Excess ABG Hemoglobin VBG pH Oxyhemoglobin Sodium Potassium Chloride Carbon Dioxide BUN Creatinine Glucose POC Glucose 150 H 175 H 155 H Lactic Acid Calcium AST ALT Alkaline Phosphatase CK-MB (CK-2) CK-MB (CK-2) Rel Index Total Protein Albumin TSH Urine WBC (Auto) Salicylates 01/11/17 01/11/17 01/11/17 00:19 04:06 05:20 WBC 15.2 H RBC 3.40 L Hgb 8.9 L Hct 26.3 L MCV 78 L MCH 26 L RDW 18.6 H Plt Count 462 H Lymph % (Auto) 13.2 L Gilliam % (Auto) Eos % (Auto) Seg Neutrophils % 80.8 H Seg Neuts % (Manual) Lymphocytes % (Manual) Seg Neutrophils # 12.3 H Seg Neutrophils # Man Lymphocytes # (Manual) APTT POC ABG pH 7.463 H ABG pH POC ABG pCO2 26.2 L POC ABG pO2 185 H ABG pO2 ABG HCO3 ABG Base Excess ABG Hemoglobin VBG pH Oxyhemoglobin Sodium Potassium Chloride Carbon Dioxide BUN Creatinine Glucose POC Glucose 163 H Lactic Acid Calcium AST ALT Alkaline Phosphatase CK-MB (CK-2) CK-MB (CK-2) Rel Index Total Protein Albumin TSH Urine WBC (Auto) Salicylates 01/11/17 01/11/17 01/11/17 05:20 06:21 07:57 WBC RBC Hgb Hct MCV MCH RDW Plt Count Lymph % (Auto) Gilliam % (Auto) Eos % (Auto) Seg Neutrophils % Seg Neuts % (Manual) Lymphocytes % (Manual) Seg Neutrophils # Seg Neutrophils # Man Lymphocytes # (Manual) APTT POC ABG pH ABG pH POC ABG pCO2 POC ABG pO2 ABG pO2 ABG HCO3 ABG Base Excess ABG Hemoglobin VBG pH Oxyhemoglobin Sodium Potassium 3.4 L Chloride 111.5 H Carbon Dioxide 17 L BUN Creatinine Glucose 147 H POC Glucose 139 H 188 H Lactic Acid Calcium 8.0 L AST ALT Alkaline Phosphatase CK-MB (CK-2) CK-MB (CK-2) Rel Index Total Protein Albumin TSH Urine WBC (Auto) Salicylates 01/11/17 01/11/17 01/11/17 11:46 16:50 23:15 WBC RBC Hgb Hct MCV MCH RDW Plt Count Lymph % (Auto) Gilliam % (Auto) Eos % (Auto) Seg Neutrophils % Seg Neuts % (Manual) Lymphocytes % (Manual) Seg Neutrophils # Seg Neutrophils # Man Lymphocytes # (Manual) APTT POC ABG pH ABG pH POC ABG pCO2 POC ABG pO2 ABG pO2 ABG HCO3 ABG Base Excess ABG Hemoglobin VBG pH Oxyhemoglobin Sodium Potassium Chloride Carbon Dioxide BUN Creatinine Glucose POC Glucose 199 H 235 H 155 H Lactic Acid Calcium AST ALT Alkaline Phosphatase CK-MB (CK-2) CK-MB (CK-2) Rel Index Total Protein Albumin TSH Urine WBC (Auto) Salicylates 01/12/17 01/12/17 01/12/17 05:02 06:56 14:50 WBC RBC Hgb Hct MCV MCH RDW Plt Count Lymph % (Auto) Gilliam % (Auto) Eos % (Auto) Seg Neutrophils % Seg Neuts % (Manual) Lymphocytes % (Manual) Seg Neutrophils # Seg Neutrophils # Man Lymphocytes # (Manual) APTT POC ABG pH ABG pH POC ABG pCO2 28.0 L POC ABG pO2 178 H ABG pO2 ABG HCO3 ABG Base Excess ABG Hemoglobin VBG pH Oxyhemoglobin Sodium Potassium Chloride Carbon Dioxide BUN Creatinine Glucose POC Glucose 119 H 164 H Lactic Acid Calcium AST ALT Alkaline Phosphatase CK-MB (CK-2) CK-MB (CK-2) Rel Index Total Protein Albumin TSH Urine WBC (Auto) Salicylates 01/13/17 01/13/17 01/13/17 03:37 03:37 04:26 WBC RBC 3.61 L Hgb 9.3 L Hct 28.0 L MCV 78 L MCH 26 L RDW 18.2 H Plt Count Lymph % (Auto) Gilliam % (Auto) Eos % (Auto) Seg Neutrophils % Seg Neuts % (Manual) Lymphocytes % (Manual) Seg Neutrophils # Seg Neutrophils # Man Lymphocytes # (Manual) APTT POC ABG pH 7.485 H ABG pH POC ABG pCO2 25.4 L POC ABG pO2 73 L ABG pO2 ABG HCO3 ABG Base Excess ABG Hemoglobin VBG pH Oxyhemoglobin Sodium Potassium Chloride 112.4 H Carbon Dioxide 19 L BUN Creatinine Glucose 118 H POC Glucose Lactic Acid Calcium 8.0 L AST ALT Alkaline Phosphatase CK-MB (CK-2) CK-MB (CK-2) Rel Index Total Protein Albumin TSH Urine WBC (Auto) Salicylates 01/13/17 01/13/17 01/13/17 06:15 11:50 17:31 WBC RBC Hgb Hct MCV MCH RDW Plt Count Lymph % (Auto) Gilliam % (Auto) Eos % (Auto) Seg Neutrophils % Seg Neuts % (Manual) Lymphocytes % (Manual) Seg Neutrophils # Seg Neutrophils # Man Lymphocytes # (Manual) APTT POC ABG pH ABG pH POC ABG pCO2 POC ABG pO2 ABG pO2 ABG HCO3 ABG Base Excess ABG Hemoglobin VBG pH Oxyhemoglobin Sodium Potassium Chloride Carbon Dioxide BUN Creatinine Glucose POC Glucose 116 H 171 H 203 H Lactic Acid Calcium AST ALT Alkaline Phosphatase CK-MB (CK-2) CK-MB (CK-2) Rel Index Total Protein Albumin TSH Urine WBC (Auto) Salicylates 01/14/17 01/14/17 01/14/17 00:02 04:50 04:50 WBC RBC 3.32 L Hgb 8.5 L Hct 26.1 L MCV 79 L MCH 26 L RDW 18.2 H Plt Count Lymph % (Auto) Gilliam % (Auto) 9.0 H Eos % (Auto) Seg Neutrophils % Seg Neuts % (Manual) Lymphocytes % (Manual) Seg Neutrophils # Seg Neutrophils # Man Lymphocytes # (Manual) APTT POC ABG pH ABG pH POC ABG pCO2 POC ABG pO2 ABG pO2 ABG HCO3 ABG Base Excess ABG Hemoglobin VBG pH Oxyhemoglobin Sodium Potassium Chloride 112.5 H Carbon Dioxide BUN Creatinine Glucose 149 H POC Glucose 157 H Lactic Acid Calcium 8.1 L AST ALT Alkaline Phosphatase CK-MB (CK-2) CK-MB (CK-2) Rel Index Total Protein Albumin TSH Urine WBC (Auto) Salicylates 01/14/17 01/14/17 01/14/17 05:10 11:27 14:07 WBC RBC Hgb Hct MCV MCH RDW Plt Count Lymph % (Auto) Gilliam % (Auto) Eos % (Auto) Seg Neutrophils % Seg Neuts % (Manual) Lymphocytes % (Manual) Seg Neutrophils # Seg Neutrophils # Man Lymphocytes # (Manual) APTT POC ABG pH ABG pH POC ABG pCO2 POC ABG pO2 ABG pO2 ABG HCO3 ABG Base Excess ABG Hemoglobin VBG pH Oxyhemoglobin Sodium Potassium Chloride Carbon Dioxide BUN Creatinine Glucose POC Glucose 176 H 147 H Lactic Acid Calcium AST ALT Alkaline Phosphatase CK-MB (CK-2) CK-MB (CK-2) Rel Index Total Protein Albumin TSH Urine WBC (Auto) 53.0 H Salicylates 01/14/17 01/15/17 01/15/17 16:52 00:04 05:26 WBC RBC Hgb Hct MCV MCH RDW Plt Count Lymph % (Auto) Gilliam % (Auto) Eos % (Auto) Seg Neutrophils % Seg Neuts % (Manual) Lymphocytes % (Manual) Seg Neutrophils # Seg Neutrophils # Man Lymphocytes # (Manual) APTT POC ABG pH ABG pH POC ABG pCO2 POC ABG pO2 ABG pO2 ABG HCO3 ABG Base Excess ABG Hemoglobin VBG pH Oxyhemoglobin Sodium Potassium Chloride Carbon Dioxide BUN Creatinine Glucose POC Glucose 131 H 193 H 215 H Lactic Acid Calcium AST ALT Alkaline Phosphatase CK-MB (CK-2) CK-MB (CK-2) Rel Index Total Protein Albumin TSH Urine WBC (Auto) Salicylates 01/15/17 01/15/17 01/15/17 11:49 17:47 21:33 WBC RBC Hgb Hct MCV MCH RDW Plt Count Lymph % (Auto) Gilliam % (Auto) Eos % (Auto) Seg Neutrophils % Seg Neuts % (Manual) Lymphocytes % (Manual) Seg Neutrophils # Seg Neutrophils # Man Lymphocytes # (Manual) APTT POC ABG pH ABG pH POC ABG pCO2 POC ABG pO2 ABG pO2 ABG HCO3 ABG Base Excess ABG Hemoglobin VBG pH Oxyhemoglobin Sodium Potassium Chloride Carbon Dioxide BUN Creatinine Glucose POC Glucose 121 H 211 H 275 H Lactic Acid Calcium AST ALT Alkaline Phosphatase CK-MB (CK-2) CK-MB (CK-2) Rel Index Total Protein Albumin TSH Urine WBC (Auto) Salicylates 01/16/17 01/16/17 01/16/17 04:30 05:28 13:45 WBC RBC Hgb Hct MCV MCH RDW Plt Count Lymph % (Auto) Gilliam % (Auto) Eos % (Auto) Seg Neutrophils % Seg Neuts % (Manual) Lymphocytes % (Manual) Seg Neutrophils # Seg Neutrophils # Man Lymphocytes # (Manual) APTT POC ABG pH ABG pH 7.457 H POC ABG pCO2 POC ABG pO2 ABG pO2 55.1 L ABG HCO3 19.4 L ABG Base Excess -4.0 L ABG Hemoglobin 6.8 L VBG pH Oxyhemoglobin 94.9 L Sodium Potassium Chloride Carbon Dioxide BUN Creatinine Glucose POC Glucose 271 H 236 H Lactic Acid Calcium AST ALT Alkaline Phosphatase CK-MB (CK-2) CK-MB (CK-2) Rel Index Total Protein Albumin TSH Urine WBC (Auto) Salicylates 01/16/17 01/17/17 01/17/17 21:39 04:10 04:10 WBC 4.4 L RBC 2.98 L Hgb 7.7 L Hct 23.3 L MCV 78 L MCH 26 L RDW 18.1 H Plt Count Lymph % (Auto) Gilliam % (Auto) Eos % (Auto) Seg Neutrophils % Seg Neuts % (Manual) Lymphocytes % (Manual) Seg Neutrophils # Seg Neutrophils # Man Lymphocytes # (Manual) APTT POC ABG pH ABG pH POC ABG pCO2 POC ABG pO2 ABG pO2 ABG HCO3 ABG Base Excess ABG Hemoglobin VBG pH Oxyhemoglobin Sodium Potassium 3.3 L Chloride 108.7 H Carbon Dioxide 20 L BUN 8 L Creatinine Glucose 202 H POC Glucose 258 H Lactic Acid Calcium 7.6 L AST ALT Alkaline Phosphatase CK-MB (CK-2) CK-MB (CK-2) Rel Index Total Protein Albumin TSH Urine WBC (Auto) Salicylates 01/17/17 01/17/17 01/17/17 04:35 12:23 16:01 WBC RBC Hgb Hct MCV MCH RDW Plt Count Lymph % (Auto) Gilliam % (Auto) Eos % (Auto) Seg Neutrophils % Seg Neuts % (Manual) Lymphocytes % (Manual) Seg Neutrophils # Seg Neutrophils # Man Lymphocytes # (Manual) APTT POC ABG pH ABG pH POC ABG pCO2 POC ABG pO2 ABG pO2 160.3 H ABG HCO3 ABG Base Excess -2.3 L ABG Hemoglobin 7.9 L VBG pH Oxyhemoglobin Sodium Potassium Chloride Carbon Dioxide BUN Creatinine Glucose POC Glucose 321 H 239 H Lactic Acid Calcium AST ALT Alkaline Phosphatase CK-MB (CK-2) CK-MB (CK-2) Rel Index Total Protein Albumin TSH Urine WBC (Auto) Salicylates 01/18/17 01/18/17 01/18/17 05:07 12:09 17:54 WBC RBC Hgb Hct MCV MCH RDW Plt Count Lymph % (Auto) Gilliam % (Auto) Eos % (Auto) Seg Neutrophils % Seg Neuts % (Manual) Lymphocytes % (Manual) Seg Neutrophils # Seg Neutrophils # Man Lymphocytes # (Manual) APTT POC ABG pH ABG pH POC ABG pCO2 POC ABG pO2 ABG pO2 ABG HCO3 ABG Base Excess ABG Hemoglobin VBG pH Oxyhemoglobin Sodium Potassium Chloride Carbon Dioxide BUN Creatinine Glucose POC Glucose 155 H 203 H 132 H Lactic Acid Calcium AST ALT Alkaline Phosphatase CK-MB (CK-2) CK-MB (CK-2) Rel Index Total Protein Albumin TSH Urine WBC (Auto) Salicylates 01/18/17 01/19/17 01/19/17 23:43 04:28 12:11 WBC RBC Hgb Hct MCV MCH RDW Plt Count Lymph % (Auto) Gilliam % (Auto) Eos % (Auto) Seg Neutrophils % Seg Neuts % (Manual) Lymphocytes % (Manual) Seg Neutrophils # Seg Neutrophils # Man Lymphocytes # (Manual) APTT POC ABG pH ABG pH POC ABG pCO2 POC ABG pO2 ABG pO2 ABG HCO3 ABG Base Excess ABG Hemoglobin VBG pH Oxyhemoglobin Sodium Potassium Chloride Carbon Dioxide BUN Creatinine Glucose POC Glucose 125 H 182 H 153 H Lactic Acid Calcium AST ALT Alkaline Phosphatase CK-MB (CK-2) CK-MB (CK-2) Rel Index Total Protein Albumin TSH Urine WBC (Auto) Salicylates 01/19/17 01/20/17 01/20/17 17:23 00:12 05:44 WBC RBC Hgb Hct MCV MCH RDW Plt Count Lymph % (Auto) Gilliam % (Auto) Eos % (Auto) Seg Neutrophils % Seg Neuts % (Manual) Lymphocytes % (Manual) Seg Neutrophils # Seg Neutrophils # Man Lymphocytes # (Manual) APTT POC ABG pH ABG pH POC ABG pCO2 POC ABG pO2 ABG pO2 ABG HCO3 ABG Base Excess ABG Hemoglobin VBG pH Oxyhemoglobin Sodium Potassium Chloride Carbon Dioxide BUN Creatinine Glucose POC Glucose 66 L 139 H 176 H Lactic Acid Calcium AST ALT Alkaline Phosphatase CK-MB (CK-2) CK-MB (CK-2) Rel Index Total Protein Albumin TSH Urine WBC (Auto) Salicylates 01/20/17 01/20/17 01/20/17 11:48 17:42 23:43 WBC RBC Hgb Hct MCV MCH RDW Plt Count Lymph % (Auto) Gilliam % (Auto) Eos % (Auto) Seg Neutrophils % Seg Neuts % (Manual) Lymphocytes % (Manual) Seg Neutrophils # Seg Neutrophils # Man Lymphocytes # (Manual) APTT POC ABG pH ABG pH POC ABG pCO2 POC ABG pO2 ABG pO2 ABG HCO3 ABG Base Excess ABG Hemoglobin VBG pH Oxyhemoglobin Sodium Potassium Chloride Carbon Dioxide BUN Creatinine Glucose POC Glucose 218 H 132 H 178 H Lactic Acid Calcium AST ALT Alkaline Phosphatase CK-MB (CK-2) CK-MB (CK-2) Rel Index Total Protein Albumin TSH Urine WBC (Auto) Salicylates 01/21/17 01/21/17 01/21/17 05:34 11:17 23:37 WBC RBC Hgb Hct MCV MCH RDW Plt Count Lymph % (Auto) Gilliam % (Auto) Eos % (Auto) Seg Neutrophils % Seg Neuts % (Manual) Lymphocytes % (Manual) Seg Neutrophils # Seg Neutrophils # Man Lymphocytes # (Manual) APTT POC ABG pH ABG pH POC ABG pCO2 POC ABG pO2 ABG pO2 ABG HCO3 ABG Base Excess ABG Hemoglobin VBG pH Oxyhemoglobin Sodium Potassium Chloride Carbon Dioxide BUN Creatinine Glucose POC Glucose 106 H 213 H 140 H Lactic Acid Calcium AST ALT Alkaline Phosphatase CK-MB (CK-2) CK-MB (CK-2) Rel Index Total Protein Albumin TSH Urine WBC (Auto) Salicylates 01/22/17 01/22/17 01/22/17 04:00 04:00 04:58 WBC RBC 3.26 L Hgb 8.3 L Hct 25.5 L MCV 78 L MCH 25 L RDW 17.9 H Plt Count Lymph % (Auto) Gilliam % (Auto) 7.9 H Eos % (Auto) 6.2 H Seg Neutrophils % Seg Neuts % (Manual) Lymphocytes % (Manual) Seg Neutrophils # Seg Neutrophils # Man Lymphocytes # (Manual) APTT POC ABG pH ABG pH POC ABG pCO2 POC ABG pO2 ABG pO2 ABG HCO3 ABG Base Excess ABG Hemoglobin VBG pH Oxyhemoglobin Sodium Potassium Chloride 95.5 L Carbon Dioxide 31 H D BUN Creatinine Glucose 134 H POC Glucose 146 H Lactic Acid Calcium AST 44 H ALT Alkaline Phosphatase 379 H CK-MB (CK-2) CK-MB (CK-2) Rel Index Total Protein Albumin 2.7 L TSH Urine WBC (Auto) Salicylates 01/22/17 01/22/17 01/22/17 12:12 18:12 23:39 WBC RBC Hgb Hct MCV MCH RDW Plt Count Lymph % (Auto) Gilliam % (Auto) Eos % (Auto) Seg Neutrophils % Seg Neuts % (Manual) Lymphocytes % (Manual) Seg Neutrophils # Seg Neutrophils # Man Lymphocytes # (Manual) APTT POC ABG pH ABG pH POC ABG pCO2 POC ABG pO2 ABG pO2 ABG HCO3 ABG Base Excess ABG Hemoglobin VBG pH Oxyhemoglobin Sodium Potassium Chloride Carbon Dioxide BUN Creatinine Glucose POC Glucose 255 H 182 H 134 H Lactic Acid Calcium AST ALT Alkaline Phosphatase CK-MB (CK-2) CK-MB (CK-2) Rel Index Total Protein Albumin TSH Urine WBC (Auto) Salicylates 01/23/17 01/23/17 01/23/17 04:43 12:12 17:36 WBC RBC Hgb Hct MCV MCH RDW Plt Count Lymph % (Auto) Gilliam % (Auto) Eos % (Auto) Seg Neutrophils % Seg Neuts % (Manual) Lymphocytes % (Manual) Seg Neutrophils # Seg Neutrophils # Man Lymphocytes # (Manual) APTT POC ABG pH ABG pH POC ABG pCO2 POC ABG pO2 ABG pO2 ABG HCO3 ABG Base Excess ABG Hemoglobin VBG pH Oxyhemoglobin Sodium Potassium Chloride Carbon Dioxide BUN Creatinine Glucose POC Glucose 218 H 128 H 156 H Lactic Acid Calcium AST ALT Alkaline Phosphatase CK-MB (CK-2) CK-MB (CK-2) Rel Index Total Protein Albumin TSH Urine WBC (Auto) Salicylates 01/24/17 01/24/17 01/24/17 00:08 05:16 11:40 WBC RBC Hgb Hct MCV MCH RDW Plt Count Lymph % (Auto) Gilliam % (Auto) Eos % (Auto) Seg Neutrophils % Seg Neuts % (Manual) Lymphocytes % (Manual) Seg Neutrophils # Seg Neutrophils # Man Lymphocytes # (Manual) APTT POC ABG pH ABG pH POC ABG pCO2 POC ABG pO2 ABG pO2 ABG HCO3 ABG Base Excess ABG Hemoglobin VBG pH Oxyhemoglobin Sodium Potassium Chloride Carbon Dioxide BUN Creatinine Glucose POC Glucose 129 H 169 H 187 H Lactic Acid Calcium AST ALT Alkaline Phosphatase CK-MB (CK-2) CK-MB (CK-2) Rel Index Total Protein Albumin TSH Urine WBC (Auto) Salicylates 01/24/17 01/24/17 01/25/17 17:43 23:23 04:56 WBC RBC Hgb Hct MCV MCH RDW Plt Count Lymph % (Auto) Gilliam % (Auto) Eos % (Auto) Seg Neutrophils % Seg Neuts % (Manual) Lymphocytes % (Manual) Seg Neutrophils # Seg Neutrophils # Man Lymphocytes # (Manual) APTT POC ABG pH ABG pH POC ABG pCO2 POC ABG pO2 ABG pO2 ABG HCO3 ABG Base Excess ABG Hemoglobin VBG pH Oxyhemoglobin Sodium Potassium Chloride Carbon Dioxide BUN Creatinine Glucose POC Glucose 215 H 222 H 210 H Lactic Acid Calcium AST ALT Alkaline Phosphatase CK-MB (CK-2) CK-MB (CK-2) Rel Index Total Protein Albumin TSH Urine WBC (Auto) Salicylates 01/25/17 01/25/17 01/26/17 11:52 17:37 00:02 WBC RBC Hgb Hct MCV MCH RDW Plt Count Lymph % (Auto) Gilliam % (Auto) Eos % (Auto) Seg Neutrophils % Seg Neuts % (Manual) Lymphocytes % (Manual) Seg Neutrophils # Seg Neutrophils # Man Lymphocytes # (Manual) APTT POC ABG pH ABG pH POC ABG pCO2 POC ABG pO2 ABG pO2 ABG HCO3 ABG Base Excess ABG Hemoglobin VBG pH Oxyhemoglobin Sodium Potassium Chloride Carbon Dioxide BUN Creatinine Glucose POC Glucose 284 H 218 H 192 H Lactic Acid Calcium AST ALT Alkaline Phosphatase CK-MB (CK-2) CK-MB (CK-2) Rel Index Total Protein Albumin TSH Urine WBC (Auto) Salicylates 01/26/17 01/26/17 01/26/17 05:33 12:17 17:50 WBC RBC Hgb Hct MCV MCH RDW Plt Count Lymph % (Auto) Gilliam % (Auto) Eos % (Auto) Seg Neutrophils % Seg Neuts % (Manual) Lymphocytes % (Manual) Seg Neutrophils # Seg Neutrophils # Man Lymphocytes # (Manual) APTT POC ABG pH ABG pH POC ABG pCO2 POC ABG pO2 ABG pO2 ABG HCO3 ABG Base Excess ABG Hemoglobin VBG pH Oxyhemoglobin Sodium Potassium Chloride Carbon Dioxide BUN Creatinine Glucose POC Glucose 199 H 227 H 229 H Lactic Acid Calcium AST ALT Alkaline Phosphatase CK-MB (CK-2) CK-MB (CK-2) Rel Index Total Protein Albumin TSH Urine WBC (Auto) Salicylates 01/26/17 01/27/17 01/27/17 23:57 05:31 11:42 WBC RBC Hgb Hct MCV MCH RDW Plt Count Lymph % (Auto) [place]illiam % (Auto) Eos % (Auto) Seg Neutrophils % Seg Neuts % (Manual) Lymphocytes % (Manual) Seg Neutrophils # Seg Neutrophils # Man Lymphocytes # (Manual) APTT POC ABG pH ABG pH POC ABG pCO2 POC ABG pO2 ABG pO2 ABG HCO3 ABG Base Excess ABG Hemoglobin VBG pH Oxyhemoglobin Sodium Potassium Chloride Carbon Dioxide BUN Creatinine Glucose POC Glucose 186 H 285 H 260 H Lactic Acid Calcium AST ALT Alkaline Phosphatase CK-MB (CK-2) CK-MB (CK-2) Rel Index Total Protein Albumin TSH Urine WBC (Auto) Salicylates 01/27/17 01/27/17 01/27/17 17:47 23:58 Unknown WBC 12.1 H RBC 3.28 L Hgb 8.5 L Hct 25.5 L MCV 78 L MCH 26 L RDW 16.8 H Plt Count 601 H Lymph % (Auto) [place] % (Auto) Eos % (Auto) Seg Neutrophils % Seg Neuts % (Manual) Lymphocytes % (Manual) Seg Neutrophils # Seg Neutrophils # Man Lymphocytes # (Manual) APTT POC ABG pH ABG pH POC ABG pCO2 POC ABG pO2 ABG pO2 ABG HCO3 ABG Base Excess ABG Hemoglobin VBG pH Oxyhemoglobin Sodium Potassium Chloride Carbon Dioxide BUN Creatinine Glucose POC Glucose 329 H 225 H Lactic Acid Calcium AST ALT Alkaline Phosphatase CK-MB (CK-2) CK-MB (CK-2) Rel Index Total Protein Albumin TSH Urine WBC (Auto) Salicylates 01/27/17 01/28/17 01/28/17 Unknown 03:44 03:44 WBC RBC 3.14 L Hgb 8.2 L Hct 24.1 L MCV 77 L MCH 26 L RDW 16.9 H Plt Count 567 H Lymph % (Auto) [place] % (Auto) Eos % (Auto) Seg Neutrophils % Seg Neuts % (Manual) Lymphocytes % (Manual) Seg Neutrophils # Seg Neutrophils # Man Lymphocytes # (Manual) APTT POC ABG pH ABG pH POC ABG pCO2 POC ABG pO2 ABG pO2 ABG HCO3 ABG Base Excess ABG Hemoglobin VBG pH Oxyhemoglobin Sodium 128 L Potassium 5.4 H Chloride 87.5 L Carbon Dioxide BUN 44 H 42 H Creatinine Glucose 250 H 128 H POC Glucose Lactic Acid Calcium AST ALT Alkaline Phosphatase CK-MB (CK-2) CK-MB (CK-2) Rel Index Total Protein Albumin TSH Urine WBC (Auto) Salicylates 01/28/17 01/28/17 01/28/17 11:43 16:47 17:52 WBC RBC Hgb Hct MCV MCH RDW Plt Count Lymph % (Auto) [place] % (Auto) Eos % (Auto) Seg Neutrophils % Seg Neuts % (Manual) Lymphocytes % (Manual) Seg Neutrophils # Seg Neutrophils # Man Lymphocytes # (Manual) APTT POC ABG pH ABG pH POC ABG pCO2 POC ABG pO2 ABG pO2 ABG HCO3 ABG Base Excess ABG Hemoglobin VBG pH Oxyhemoglobin Sodium Potassium Chloride Carbon Dioxide BUN Creatinine Glucose POC Glucose 351 H 249 H Lactic Acid Calcium AST ALT Alkaline Phosphatase CK-MB (CK-2) CK-MB (CK-2) Rel Index Total Protein Albumin TSH Urine WBC (Auto) > 182.0 H Salicylates 01/29/17 01/29/17 01/29/17 05:25 05:25 09:32 WBC 13.6 H RBC 3.25 L Hgb 8.3 L Hct 25.1 L MCV 77 L MCH 26 L RDW 16.8 H Plt Count 514 H Lymph % (Auto) [place] % (Auto) Eos % (Auto) Seg Neutrophils % Seg Neuts % (Manual) Lymphocytes % (Manual) Seg Neutrophils # Seg Neutrophils # Man Lymphocytes # (Manual) APTT POC ABG pH ABG pH POC ABG pCO2 POC ABG pO2 ABG pO2 ABG HCO3 ABG Base Excess ABG Hemoglobin VBG pH Oxyhemoglobin Sodium Potassium Chloride 97.8 L Carbon Dioxide BUN 34 H Creatinine Glucose 222 H POC Glucose Lactic Acid 2.50 H* Calcium AST ALT Alkaline Phosphatase CK-MB (CK-2) CK-MB (CK-2) Rel Index Total Protein Albumin TSH Urine WBC (Auto) Salicylates 01/29/17 01/29/17 01/29/17 11:56 18:11 23:55 WBC RBC Hgb Hct MCV MCH RDW Plt Count Lymph % (Auto) [place] % (Auto) Eos % (Auto) Seg Neutrophils % Seg Neuts % (Manual) Lymphocytes % (Manual) Seg Neutrophils # Seg Neutrophils # Man Lymphocytes # (Manual) APTT POC ABG pH ABG pH POC ABG pCO2 POC ABG pO2 ABG pO2 ABG HCO3 ABG Base Excess ABG Hemoglobin VBG pH Oxyhemoglobin Sodium Potassium Chloride Carbon Dioxide BUN Creatinine Glucose POC Glucose 261 H 215 H 176 H Lactic Acid Calcium AST ALT Alkaline Phosphatase CK-MB (CK-2) CK-MB (CK-2) Rel Index Total Protein Albumin TSH Urine WBC (Auto) Salicylates 01/30/17 01/30/17 01/30/17 05:31 05:31 05:34 WBC 15.2 H RBC 3.09 L Hgb 7.9 L Hct 23.9 L MCV 77 L MCH 26 L RDW 16.9 H Plt Count 569 H Lymph % (Auto) [place] % (Auto) Eos % (Auto) Seg Neutrophils % Seg Neuts % (Manual) Lymphocytes % (Manual) Seg Neutrophils # Seg Neutrophils # Man Lymphocytes # (Manual) APTT POC ABG pH ABG pH POC ABG pCO2 POC ABG pO2 ABG pO2 ABG HCO3 ABG Base Excess ABG Hemoglobin VBG pH Oxyhemoglobin Sodium Potassium Chloride Carbon Dioxide BUN 24 H Creatinine Glucose 235 H POC Glucose 243 H Lactic Acid Calcium AST ALT Alkaline Phosphatase CK-MB (CK-2) CK-MB (CK-2) Rel Index Total Protein Albumin TSH Urine WBC (Auto) Salicylates 01/30/17 01/30/17 01/30/17 11:38 17:58 23:29 WBC RBC Hgb Hct MCV MCH RDW Plt Count Lymph % (Auto) [place] % (Auto) Eos % (Auto) Seg Neutrophils % Seg Neuts % (Manual) Lymphocytes % (Manual) Seg Neutrophils # Seg Neutrophils # Man Lymphocytes # (Manual) APTT POC ABG pH ABG pH POC ABG pCO2 POC ABG pO2 ABG pO2 ABG HCO3 ABG Base Excess ABG Hemoglobin VBG pH Oxyhemoglobin Sodium Potassium Chloride Carbon Dioxide BUN Creatinine Glucose POC Glucose 298 H 208 H 245 H Lactic Acid Calcium AST ALT Alkaline Phosphatase CK-MB (CK-2) CK-MB (CK-2) Rel Index Total Protein Albumin TSH Urine WBC (Auto) Salicylates 01/31/17 01/31/17 01/31/17 04:39 04:39 05:57 WBC 11.4 H RBC 3.22 L Hgb 8.2 L Hct 24.9 L MCV 78 L MCH 25 L RDW 17.2 H Plt Count 576 H Lymph % (Auto) [place] % (Auto) Eos % (Auto) Seg Neutrophils % Seg Neuts % (Manual) Lymphocytes % (Manual) Seg Neutrophils # Seg Neutrophils # Man Lymphocytes # (Manual) APTT POC ABG pH ABG pH POC ABG pCO2 POC ABG pO2 ABG pO2 ABG HCO3 ABG Base Excess ABG Hemoglobin VBG pH Oxyhemoglobin Sodium Potassium Chloride Carbon Dioxide BUN Creatinine 0.7 L Glucose 223 H POC Glucose 264 H Lactic Acid Calcium AST ALT Alkaline Phosphatase CK-MB (CK-2) CK-MB (CK-2) Rel Index Total Protein Albumin TSH Urine WBC (Auto) Salicylates 01/31/17 01/31/17 01/31/17 12:23 17:41 18:55 WBC RBC Hgb Hct MCV MCH RDW Plt Count Lymph % (Auto) [place] % (Auto) Eos % (Auto) Seg Neutrophils % Seg Neuts % (Manual) Lymphocytes % (Manual) Seg Neutrophils # Seg Neutrophils # Man Lymphocytes # (Manual) APTT POC ABG pH ABG pH POC ABG pCO2 32.8 L POC ABG pO2 ABG pO2 ABG HCO3 ABG Base Excess ABG Hemoglobin VBG pH Oxyhemoglobin Sodium Potassium Chloride Carbon Dioxide BUN Creatinine Glucose POC Glucose 252 H 208 H Lactic Acid Calcium AST ALT Alkaline Phosphatase CK-MB (CK-2) CK-MB (CK-2) Rel Index Total Protein Albumin TSH Urine WBC (Auto) Salicylates 01/31/17 02/01/17 02/01/17 22:59 03:38 03:38 WBC RBC 2.81 L Hgb 7.4 L Hct 22.1 L MCV 79 L MCH 27 L RDW 17.0 H Plt Count 540 H Lymph % (Auto) [place] % (Auto) Eos % (Auto) Seg Neutrophils % Seg Neuts % (Manual) Lymphocytes % (Manual) Seg Neutrophils # Seg Neutrophils # Man Lymphocytes # (Manual) APTT POC ABG pH ABG pH POC ABG pCO2 POC ABG pO2 ABG pO2 ABG HCO3 ABG Base Excess ABG Hemoglobin VBG pH Oxyhemoglobin Sodium Potassium Chloride Carbon Dioxide 21 L BUN Creatinine 0.7 L Glucose POC Glucose 40 L Lactic Acid Calcium AST ALT Alkaline Phosphatase CK-MB (CK-2) CK-MB (CK-2) Rel Index Total Protein Albumin TSH Urine WBC (Auto) Salicylates 02/01/17 02/01/17 02/01/17 05:17 12:19 16:44 WBC RBC Hgb Hct MCV MCH RDW Plt Count Lymph % (Auto) [place] % (Auto) Eos % (Auto) Seg Neutrophils % Seg Neuts % (Manual) Lymphocytes % (Manual) Seg Neutrophils # Seg Neutrophils # Man Lymphocytes # (Manual) APTT POC ABG pH ABG pH POC ABG pCO2 POC ABG pO2 ABG pO2 ABG HCO3 ABG Base Excess ABG Hemoglobin VBG pH Oxyhemoglobin Sodium Potassium Chloride Carbon Dioxide BUN Creatinine Glucose POC Glucose 140 H 213 H 172 H Lactic Acid Calcium AST ALT Alkaline Phosphatase CK-MB (CK-2) CK-MB (CK-2) Rel Index Total Protein Albumin TSH Urine WBC (Auto) Salicylates 02/01/17 02/02/17 02/02/17 23:59 05:14 11:24 WBC RBC Hgb Hct MCV MCH RDW Plt Count Lymph % (Auto) [place] % (Auto) Eos % (Auto) Seg Neutrophils % Seg Neuts % (Manual) Lymphocytes % (Manual) Seg Neutrophils # Seg Neutrophils # Man Lymphocytes # (Manual) APTT POC ABG pH ABG pH POC ABG pCO2 POC ABG pO2 ABG pO2 ABG HCO3 ABG Base Excess ABG Hemoglobin VBG pH Oxyhemoglobin Sodium Potassium Chloride Carbon Dioxide BUN Creatinine Glucose POC Glucose 181 H 194 H 209 H Lactic Acid Calcium AST ALT Alkaline Phosphatase CK-MB (CK-2) CK-MB (CK-2) Rel Index Total Protein Albumin TSH Urine WBC (Auto) Salicylates 02/02/17 02/02/17 02/02/17 11:46 11:46 17:47 WBC RBC 2.94 L Hgb 7.5 L Hct 23.0 L MCV 78 L MCH 25 L RDW 16.9 H Plt Count 520 H Lymph % (Auto) [place] % (Auto) Eos % (Auto) Seg Neutrophils % Seg Neuts % (Manual) Lymphocytes % (Manual) Seg Neutrophils # Seg Neutrophils # Man Lymphocytes # (Manual) APTT POC ABG pH ABG pH POC ABG pCO2 POC ABG pO2 ABG pO2 ABG HCO3 ABG Base Excess ABG Hemoglobin VBG pH Oxyhemoglobin Sodium Potassium Chloride Carbon Dioxide BUN Creatinine 0.6 L Glucose 189 H POC Glucose 147 H Lactic Acid Calcium 8.1 L AST ALT Alkaline Phosphatase CK-MB (CK-2) CK-MB (CK-2) Rel Index Total Protein Albumin TSH Urine WBC (Auto) Salicylates 02/02/17 02/03/1717 23:32 05:53 11:19 WBC RBC Hgb Hct MCV MCH RDW Plt Count Lymph % (Auto) [place] % (Auto) Eos % (Auto) Seg Neutrophils % Seg Neuts % (Manual) Lymphocytes % (Manual) Seg Neutrophils # Seg Neutrophils # Man Lymphocytes # (Manual) APTT POC ABG pH ABG pH POC ABG pCO2 POC ABG pO2 ABG pO2 ABG HCO3 ABG Base Excess ABG Hemoglobin VBG pH Oxyhemoglobin Sodium Potassium Chloride Carbon Dioxide BUN Creatinine Glucose POC Glucose 176 H 224 H 228 H Lactic Acid Calcium AST ALT Alkaline Phosphatase CK-MB (CK-2) CK-MB (CK-2) Rel Index Total Protein Albumin TSH Urine WBC (Auto) Salicylates 02/03/17 02/03/17 02/04/17 16:59 23:38 05:45 WBC RBC Hgb Hct MCV MCH RDW Plt Count Lymph % (Auto) [place] % (Auto) Eos % (Auto) Seg Neutrophils % Seg Neuts % (Manual) Lymphocytes % (Manual) Seg Neutrophils # Seg Neutrophils # Man Lymphocytes # (Manual) APTT POC ABG pH ABG pH POC ABG pCO2 POC ABG pO2 ABG pO2 ABG HCO3 ABG Base Excess ABG Hemoglobin VBG pH Oxyhemoglobin Sodium Potassium Chloride Carbon Dioxide BUN Creatinine Glucose POC Glucose 189 H 191 H 251 H Lactic Acid Calcium AST ALT Alkaline Phosphatase CK-MB (CK-2) CK-MB (CK-2) Rel Index Total Protein Albumin TSH Urine WBC (Auto) Salicylates 02/04/17 02/04/17 02/05/17 11:20 17:20 00:17 WBC RBC Hgb Hct MCV MCH RDW Plt Count Lymph % (Auto) [place] % (Auto) Eos % (Auto) Seg Neutrophils % Seg Neuts % (Manual) Lymphocytes % (Manual) Seg Neutrophils # Seg Neutrophils # Man Lymphocytes # (Manual) APTT POC ABG pH ABG pH POC ABG pCO2 POC ABG pO2 ABG pO2 ABG HCO3 ABG Base Excess ABG Hemoglobin VBG pH Oxyhemoglobin Sodium Potassium Chloride Carbon Dioxide BUN Creatinine Glucose POC Glucose 243 H 163 H 200 H Lactic Acid Calcium AST ALT Alkaline Phosphatase CK-MB (CK-2) CK-MB (CK-2) Rel Index Total Protein Albumin TSH Urine WBC (Auto) Salicylates 02/05/17 02/05/17 02/05/17 05:38 12:38 16:29 WBC RBC Hgb Hct MCV MCH RDW Plt Count Lymph % (Auto) [place] % (Auto) Eos % (Auto) Seg Neutrophils % Seg Neuts % (Manual) Lymphocytes % (Manual) Seg Neutrophils # Seg Neutrophils # Man Lymphocytes # (Manual) APTT POC ABG pH ABG pH POC ABG pCO2 POC ABG pO2 ABG pO2 ABG HCO3 ABG Base Excess ABG Hemoglobin VBG pH Oxyhemoglobin Sodium Potassium Chloride Carbon Dioxide BUN Creatinine Glucose POC Glucose 248 H 241 H 257 H Lactic Acid Calcium AST ALT Alkaline Phosphatase CK-MB (CK-2) CK-MB (CK-2) Rel Index Total Protein Albumin TSH Urine WBC (Auto) Salicylates 02/05/17 02/06/17 02/06/17 23:56 05:30 11:50 WBC RBC Hgb Hct MCV MCH RDW Plt Count Lymph % (Auto) [place] % (Auto) Eos % (Auto) Seg Neutrophils % Seg Neuts % (Manual) Lymphocytes % (Manual) Seg Neutrophils # Seg Neutrophils # Man Lymphocytes # (Manual) APTT POC ABG pH ABG pH POC ABG pCO2 POC ABG pO2 ABG pO2 ABG HCO3 ABG Base Excess ABG Hemoglobin VBG pH Oxyhemoglobin Sodium Potassium Chloride Carbon Dioxide BUN Creatinine Glucose POC Glucose 258 H 120 H 254 H Lactic Acid Calcium AST ALT Alkaline Phosphatase CK-MB (CK-2) CK-MB (CK-2) Rel Index Total Protein Albumin TSH Urine WBC (Auto) Salicylates 02/06/17 02/06/17 02/07/17 17:11 23:50 05:22 WBC RBC Hgb Hct MCV MCH RDW Plt Count Lymph % (Auto) [place] % (Auto) Eos % (Auto) Seg Neutrophils % Seg Neuts % (Manual) Lymphocytes % (Manual) Seg Neutrophils # Seg Neutrophils # Man Lymphocytes # (Manual) APTT POC ABG pH ABG pH POC ABG pCO2 POC ABG pO2 ABG pO2 ABG HCO3 ABG Base Excess ABG Hemoglobin VBG pH Oxyhemoglobin Sodium Potassium Chloride Carbon Dioxide BUN Creatinine Glucose POC Glucose 149 H 240 H 258 H Lactic Acid Calcium AST ALT Alkaline Phosphatase CK-MB (CK-2) CK-MB (CK-2) Rel Index Total Protein Albumin TSH Urine WBC (Auto) Salicylates 02/07/17 02/07/17 02/07/17 11:15 18:33 23:59 WBC RBC Hgb Hct MCV MCH RDW Plt Count Lymph % (Auto) [place] % (Auto) Eos % (Auto) Seg Neutrophils % Seg Neuts % (Manual) Lymphocytes % (Manual) Seg Neutrophils # Seg Neutrophils # Man Lymphocytes # (Manual) APTT POC ABG pH ABG pH POC ABG pCO2 POC ABG pO2 ABG pO2 ABG HCO3 ABG Base Excess ABG Hemoglobin VBG pH Oxyhemoglobin Sodium Potassium Chloride Carbon Dioxide BUN Creatinine Glucose POC Glucose 239 H 176 H 186 H Lactic Acid Calcium AST ALT Alkaline Phosphatase CK-MB (CK-2) CK-MB (CK-2) Rel Index Total Protein Albumin TSH Urine WBC (Auto) Salicylates 02/08/17 02/08/17 02/08/17 06:15 11:55 16:55 WBC RBC Hgb Hct MCV MCH RDW Plt Count Lymph % (Auto) [place] % (Auto) Eos % (Auto) Seg Neutrophils % Seg Neuts % (Manual) Lymphocytes % (Manual) Seg Neutrophils # Seg Neutrophils # Man Lymphocytes # (Manual) APTT POC ABG pH ABG pH POC ABG pCO2 POC ABG pO2 ABG pO2 ABG HCO3 ABG Base Excess ABG Hemoglobin VBG pH Oxyhemoglobin Sodium Potassium Chloride Carbon Dioxide BUN Creatinine Glucose POC Glucose 195 H 129 H 246 H Lactic Acid Calcium AST ALT Alkaline Phosphatase CK-MB (CK-2) CK-MB (CK-2) Rel Index Total Protein Albumin TSH Urine WBC (Auto) Salicylates 02/08/17 02/09/17 02/09/17 23:51 05:51 07:24 WBC 14.7 H RBC 3.39 L Hgb 8.9 L Hct 26.4 L MCV 78 L MCH 26 L RDW 18.4 H Plt Count 670 H Lymph % (Auto) 11.8 L [place] % (Auto) Eos % (Auto) Seg Neutrophils % 81.2 H Seg Neuts % (Manual) Lymphocytes % (Manual) Seg Neutrophils # 11.9 H Seg Neutrophils # Man Lymphocytes # (Manual) APTT POC ABG pH ABG pH POC ABG pCO2 POC ABG pO2 ABG pO2 ABG HCO3 ABG Base Excess ABG Hemoglobin VBG pH Oxyhemoglobin Sodium Potassium Chloride Carbon Dioxide BUN Creatinine Glucose POC Glucose 262 H 295 H Lactic Acid Calcium AST ALT Alkaline Phosphatase CK-MB (CK-2) CK-MB (CK-2) Rel Index Total Protein Albumin TSH Urine WBC (Auto) Salicylates 02/09/17 02/09/17 02/09/17 07:24 12:08 18:39 WBC RBC Hgb Hct MCV MCH RDW Plt Count Lymph % (Auto) [place] % (Auto) Eos % (Auto) Seg Neutrophils % Seg Neuts % (Manual) Lymphocytes % (Manual) Seg Neutrophils # Seg Neutrophils # Man Lymphocytes # (Manual) APTT POC ABG pH ABG pH POC ABG pCO2 POC ABG pO2 ABG pO2 ABG HCO3 ABG Base Excess ABG Hemoglobin VBG pH Oxyhemoglobin Sodium Potassium Chloride 95.5 L Carbon Dioxide BUN 52 H Creatinine Glucose 277 H POC Glucose 236 H 151 H Lactic Acid Calcium AST ALT Alkaline Phosphatase CK-MB (CK-2) CK-MB (CK-2) Rel Index Total Protein Albumin TSH Urine WBC (Auto) Salicylates 02/10/17 02/10/17 02/10/17 00:01 05:44 11:21 WBC RBC Hgb Hct MCV MCH RDW Plt Count Lymph % (Auto) [place] % (Auto) Eos % (Auto) Seg Neutrophils % Seg Neuts % (Manual) Lymphocytes % (Manual) Seg Neutrophils # Seg Neutrophils # Man Lymphocytes # (Manual) APTT POC ABG pH ABG pH POC ABG pCO2 POC ABG pO2 ABG pO2 ABG HCO3 ABG Base Excess ABG Hemoglobin VBG pH Oxyhemoglobin Sodium Potassium Chloride Carbon Dioxide BUN Creatinine Glucose POC Glucose 210 H 201 H 233 H Lactic Acid Calcium AST ALT Alkaline Phosphatase CK-MB (CK-2) CK-MB (CK-2) Rel Index Total Protein Albumin TSH Urine WBC (Auto) Salicylates 02/10/17 02/10/17 02/11/17 17:29 23:56 05:24 WBC RBC Hgb Hct MCV MCH RDW Plt Count Lymph % (Auto) [place] % (Auto) Eos % (Auto) Seg Neutrophils % Seg Neuts % (Manual) Lymphocytes % (Manual) Seg Neutrophils # Seg Neutrophils # Man Lymphocytes # (Manual) APTT POC ABG pH ABG pH POC ABG pCO2 POC ABG pO2 ABG pO2 ABG HCO3 ABG Base Excess ABG Hemoglobin VBG pH Oxyhemoglobin Sodium Potassium Chloride Carbon Dioxide BUN Creatinine Glucose POC Glucose 167 H 191 H 135 H Lactic Acid Calcium AST ALT Alkaline Phosphatase CK-MB (CK-2) CK-MB (CK-2) Rel Index Total Protein Albumin TSH Urine WBC (Auto) Salicylates 02/11/17 02/11/17 02/11/17 12:25 17:03 23:59 WBC RBC Hgb Hct MCV MCH RDW Plt Count Lymph % (Auto) [place] % (Auto) Eos % (Auto) Seg Neutrophils % Seg Neuts % (Manual) Lymphocytes % (Manual) Seg Neutrophils # Seg Neutrophils # Man Lymphocytes # (Manual) APTT POC ABG pH ABG pH POC ABG pCO2 POC ABG pO2 ABG pO2 ABG HCO3 ABG Base Excess ABG Hemoglobin VBG pH Oxyhemoglobin Sodium Potassium Chloride Carbon Dioxide BUN Creatinine Glucose POC Glucose 275 H 172 H 215 H Lactic Acid Calcium AST ALT Alkaline Phosphatase CK-MB (CK-2) CK-MB (CK-2) Rel Index Total Protein Albumin TSH Urine WBC (Auto) Salicylates 02/12/17 02/12/17 02/12/17 05:39 11:33 17:55 WBC RBC Hgb Hct MCV MCH RDW Plt Count Lymph % (Auto) [place] % (Auto) Eos % (Auto) Seg Neutrophils % Seg Neuts % (Manual) Lymphocytes % (Manual) Seg Neutrophils # Seg Neutrophils # Man Lymphocytes # (Manual) APTT POC ABG pH ABG pH POC ABG pCO2 POC ABG pO2 ABG pO2 ABG HCO3 ABG Base Excess ABG Hemoglobin VBG pH Oxyhemoglobin Sodium Potassium Chloride Carbon Dioxide BUN Creatinine Glucose POC Glucose 261 H 217 H 172 H Lactic Acid Calcium AST ALT Alkaline Phosphatase CK-MB (CK-2) CK-MB (CK-2) Rel Index Total Protein Albumin TSH Urine WBC (Auto) Salicylates 02/13/17 02/13/17 02/13/17 00:25 06:46 11:26 WBC RBC Hgb Hct MCV MCH RDW Plt Count Lymph % (Auto) [place] % (Auto) Eos % (Auto) Seg Neutrophils % Seg Neuts % (Manual) Lymphocytes % (Manual) Seg Neutrophils # Seg Neutrophils # Man Lymphocytes # (Manual) APTT POC ABG pH ABG pH POC ABG pCO2 POC ABG pO2 ABG pO2 ABG HCO3 ABG Base Excess ABG Hemoglobin VBG pH Oxyhemoglobin Sodium Potassium Chloride Carbon Dioxide BUN Creatinine Glucose POC Glucose 207 H 219 H 231 H Lactic Acid Calcium AST ALT Alkaline Phosphatase CK-MB (CK-2) CK-MB (CK-2) Rel Index Total Protein Albumin TSH Urine WBC (Auto) Salicylates 02/13/17 02/13/17 02/14/17 17:12 23:44 05:44 WBC RBC Hgb Hct MCV MCH RDW Plt Count Lymph % (Auto) [place] % (Auto) Eos % (Auto) Seg Neutrophils % Seg Neuts % (Manual) Lymphocytes % (Manual) Seg Neutrophils # Seg Neutrophils # Man Lymphocytes # (Manual) APTT POC ABG pH ABG pH POC ABG pCO2 POC ABG pO2 ABG pO2 ABG HCO3 ABG Base Excess ABG Hemoglobin VBG pH Oxyhemoglobin Sodium Potassium Chloride Carbon Dioxide BUN Creatinine Glucose POC Glucose 190 H 256 H 184 H Lactic Acid Calcium AST ALT Alkaline Phosphatase CK-MB (CK-2) CK-MB (CK-2) Rel Index Total Protein Albumin TSH Urine WBC (Auto) Salicylates 02/14/17 02/14/17 02/14/17 12:21 17:57 23:18 WBC RBC Hgb Hct MCV MCH RDW Plt Count Lymph % (Auto) [place] % (Auto) Eos % (Auto) Seg Neutrophils % Seg Neuts % (Manual) Lymphocytes % (Manual) Seg Neutrophils # Seg Neutrophils # Man Lymphocytes # (Manual) APTT POC ABG pH ABG pH POC ABG pCO2 POC ABG pO2 ABG pO2 ABG HCO3 ABG Base Excess ABG Hemoglobin VBG pH Oxyhemoglobin Sodium Potassium Chloride Carbon Dioxide BUN Creatinine Glucose POC Glucose 233 H 155 H 165 H Lactic Acid Calcium AST ALT Alkaline Phosphatase CK-MB (CK-2) CK-MB (CK-2) Rel Index Total Protein Albumin TSH Urine WBC (Auto) Salicylates 02/15/17 02/15/17 02/15/17 05:33 11:45 17:20 WBC RBC Hgb Hct MCV MCH RDW Plt Count Lymph % (Auto) [place] % (Auto) Eos % (Auto) Seg Neutrophils % Seg Neuts % (Manual) Lymphocytes % (Manual) Seg Neutrophils # Seg Neutrophils # Man Lymphocytes # (Manual) APTT POC ABG pH ABG pH POC ABG pCO2 POC ABG pO2 ABG pO2 ABG HCO3 ABG Base Excess ABG Hemoglobin VBG pH Oxyhemoglobin Sodium Potassium Chloride Carbon Dioxide BUN Creatinine Glucose POC Glucose 239 H 130 H 189 H Lactic Acid Calcium AST ALT Alkaline Phosphatase CK-MB (CK-2) CK-MB (CK-2) Rel Index Total Protein Albumin TSH Urine WBC (Auto) Salicylates 02/16/17 02/16/17 02/16/17 00:14 05:09 12:31 WBC RBC Hgb Hct MCV MCH RDW Plt Count Lymph % (Auto) [place] % (Auto) Eos % (Auto) Seg Neutrophils % Seg Neuts % (Manual) Lymphocytes % (Manual) Seg Neutrophils # Seg Neutrophils # Man Lymphocytes # (Manual) APTT POC ABG pH ABG pH POC ABG pCO2 POC ABG pO2 ABG pO2 ABG HCO3 ABG Base Excess ABG Hemoglobin VBG pH Oxyhemoglobin Sodium Potassium Chloride Carbon Dioxide BUN Creatinine Glucose POC Glucose 197 H 226 H 178 H Lactic Acid Calcium AST ALT Alkaline Phosphatase CK-MB (CK-2) CK-MB (CK-2) Rel Index Total Protein Albumin TSH Urine WBC (Auto) Salicylates 02/16/17 02/16/17 02/17/17 16:35 23:49 05:37 WBC RBC Hgb Hct MCV MCH RDW Plt Count Lymph % (Auto) [place] % (Auto) Eos % (Auto) Seg Neutrophils % Seg Neuts % (Manual) Lymphocytes % (Manual) Seg Neutrophils # Seg Neutrophils # Man Lymphocytes # (Manual) APTT POC ABG pH ABG pH POC ABG pCO2 POC ABG pO2 ABG pO2 ABG HCO3 ABG Base Excess ABG Hemoglobin VBG pH Oxyhemoglobin Sodium Potassium Chloride Carbon Dioxide BUN Creatinine Glucose POC Glucose 174 H 62 L 153 H Lactic Acid Calcium AST ALT Alkaline Phosphatase CK-MB (CK-2) CK-MB (CK-2) Rel Index Total Protein Albumin TSH Urine WBC (Auto) Salicylates 02/17/17 02/17/17 02/17/17 11:39 17:02 22:24 WBC RBC Hgb Hct MCV MCH RDW Plt Count Lymph % (Auto) [place] % (Auto) Eos % (Auto) Seg Neutrophils % Seg Neuts % (Manual) Lymphocytes % (Manual) Seg Neutrophils # Seg Neutrophils # Man Lymphocytes # (Manual) APTT POC ABG pH ABG pH POC ABG pCO2 POC ABG pO2 ABG pO2 ABG HCO3 ABG Base Excess ABG Hemoglobin VBG pH Oxyhemoglobin Sodium Potassium Chloride Carbon Dioxide BUN Creatinine Glucose POC Glucose 231 H 112 H 116 H Lactic Acid Calcium AST ALT Alkaline Phosphatase CK-MB (CK-2) CK-MB (CK-2) Rel Index Total Protein Albumin TSH Urine WBC (Auto) Salicylates 02/18/17 02/19/17 02/19/17 15:34 05:09 07:57 WBC RBC Hgb Hct MCV MCH RDW Plt Count Lymph % (Auto) Gilliam % (Auto) Eos % (Auto) Seg Neutrophils % Seg Neuts % (Manual) Lymphocytes % (Manual) Seg Neutrophils # Seg Neutrophils # Man Lymphocytes # (Manual) APTT POC ABG pH ABG pH POC ABG pCO2 POC ABG pO2 ABG pO2 ABG HCO3 ABG Base Excess ABG Hemoglobin VBG pH Oxyhemoglobin Sodium Potassium Chloride Carbon Dioxide BUN Creatinine Glucose POC Glucose 215 H 218 H 283 H Lactic Acid Calcium AST ALT Alkaline Phosphatase CK-MB (CK-2) CK-MB (CK-2) Rel Index Total Protein Albumin TSH Urine WBC (Auto) Salicylates 02/19/17 02/19/17 02/20/17 14:49 22:10 05:10 WBC RBC Hgb Hct MCV MCH RDW Plt Count Lymph % (Auto) Gilliam % (Auto) Eos % (Auto) Seg Neutrophils % Seg Neuts % (Manual) Lymphocytes % (Manual) Seg Neutrophils # Seg Neutrophils # Man Lymphocytes # (Manual) APTT POC ABG pH ABG pH POC ABG pCO2 POC ABG pO2 ABG pO2 ABG HCO3 ABG Base Excess ABG Hemoglobin VBG pH Oxyhemoglobin Sodium Potassium Chloride Carbon Dioxide BUN Creatinine Glucose POC Glucose 290 H 169 H 209 H Lactic Acid Calcium AST ALT Alkaline Phosphatase CK-MB (CK-2) CK-MB (CK-2) Rel Index Total Protein Albumin TSH Urine WBC (Auto) Salicylates 02/20/17 02/20/17 02/21/17 15:05 21:52 02:00 WBC RBC Hgb Hct MCV MCH RDW Plt Count Lymph % (Auto) Gilliam % (Auto) Eos % (Auto) Seg Neutrophils % Seg Neuts % (Manual) Lymphocytes % (Manual) Seg Neutrophils # Seg Neutrophils # Man Lymphocytes # (Manual) APTT POC ABG pH ABG pH POC ABG pCO2 POC ABG pO2 ABG pO2 ABG HCO3 ABG Base Excess ABG Hemoglobin VBG pH Oxyhemoglobin Sodium Potassium Chloride Carbon Dioxide BUN Creatinine Glucose POC Glucose 172 H 209 H 216 H Lactic Acid Calcium AST ALT Alkaline Phosphatase CK-MB (CK-2) CK-MB (CK-2) Rel Index Total Protein Albumin TSH Urine WBC (Auto) Salicylates 02/21/17 02/21/17 02/21/17 04:54 14:43 17:47 WBC RBC Hgb Hct MCV MCH RDW Plt Count Lymph % (Auto) Gilliam % (Auto) Eos % (Auto) Seg Neutrophils % Seg Neuts % (Manual) Lymphocytes % (Manual) Seg Neutrophils # Seg Neutrophils # Man Lymphocytes # (Manual) APTT POC ABG pH ABG pH POC ABG pCO2 POC ABG pO2 ABG pO2 ABG HCO3 ABG Base Excess ABG Hemoglobin VBG pH Oxyhemoglobin Sodium Potassium Chloride Carbon Dioxide BUN Creatinine Glucose POC Glucose 227 H 290 H 220 H Lactic Acid Calcium AST ALT Alkaline Phosphatase CK-MB (CK-2) CK-MB (CK-2) Rel Index Total Protein Albumin TSH Urine WBC (Auto) Salicylates 02/21/17 02/22/17 02/22/17 22:02 04:52 15:25 WBC RBC Hgb Hct MCV MCH RDW Plt Count Lymph % (Auto) [place] % (Auto) Eos % (Auto) Seg Neutrophils % Seg Neuts % (Manual) Lymphocytes % (Manual) Seg Neutrophils # Seg Neutrophils # Man Lymphocytes # (Manual) APTT POC ABG pH ABG pH POC ABG pCO2 POC ABG pO2 ABG pO2 ABG HCO3 ABG Base Excess ABG Hemoglobin VBG pH Oxyhemoglobin Sodium Potassium Chloride Carbon Dioxide BUN Creatinine Glucose POC Glucose 246 H 212 H 236 H Lactic Acid Calcium AST ALT Alkaline Phosphatase CK-MB (CK-2) CK-MB (CK-2) Rel Index Total Protein Albumin TSH Urine WBC (Auto) Salicylates 02/22/17 02/23/17 02/23/17 21:33 06:04 10:00 WBC RBC Hgb Hct MCV MCH RDW Plt Count Lymph % (Auto) [place] % (Auto) Eos % (Auto) Seg Neutrophils % Seg Neuts % (Manual) Lymphocytes % (Manual) Seg Neutrophils # Seg Neutrophils # Man Lymphocytes # (Manual) APTT POC ABG pH ABG pH POC ABG pCO2 POC ABG pO2 ABG pO2 ABG HCO3 ABG Base Excess ABG Hemoglobin VBG pH Oxyhemoglobin Sodium Potassium Chloride Carbon Dioxide BUN Creatinine Glucose POC Glucose 255 H 208 H 174 H Lactic Acid Calcium AST ALT Alkaline Phosphatase CK-MB (CK-2) CK-MB (CK-2) Rel Index Total Protein Albumin TSH Urine WBC (Auto) Salicylates 02/23/17 02/23/17 02/23/17 12:52 17:15 21:51 WBC RBC Hgb Hct MCV MCH RDW Plt Count Lymph % (Auto) [place] % (Auto) Eos % (Auto) Seg Neutrophils % Seg Neuts % (Manual) Lymphocytes % (Manual) Seg Neutrophils # Seg Neutrophils # Man Lymphocytes # (Manual) APTT POC ABG pH ABG pH POC ABG pCO2 POC ABG pO2 ABG pO2 ABG HCO3 ABG Base Excess ABG Hemoglobin VBG pH Oxyhemoglobin Sodium Potassium Chloride Carbon Dioxide BUN Creatinine Glucose POC Glucose 203 H 269 H 205 H Lactic Acid Calcium AST ALT Alkaline Phosphatase CK-MB (CK-2) CK-MB (CK-2) Rel Index Total Protein Albumin TSH Urine WBC (Auto) Salicylates 02/24/17 02/24/17 02/24/17 10:23 17:45 21:24 WBC RBC Hgb Hct MCV MCH RDW Plt Count Lymph % (Auto) [place] % (Auto) Eos % (Auto) Seg Neutrophils % Seg Neuts % (Manual) Lymphocytes % (Manual) Seg Neutrophils # Seg Neutrophils # Man Lymphocytes # (Manual) APTT POC ABG pH ABG pH POC ABG pCO2 POC ABG pO2 ABG pO2 ABG HCO3 ABG Base Excess ABG Hemoglobin VBG pH Oxyhemoglobin Sodium Potassium Chloride Carbon Dioxide BUN Creatinine Glucose POC Glucose 280 H 239 H 254 H Lactic Acid Calcium AST ALT Alkaline Phosphatase CK-MB (CK-2) CK-MB (CK-2) Rel Index Total Protein Albumin TSH Urine WBC (Auto) Salicylates 02/25/17 02/25/17 02/25/17 02:12 05:17 14:32 WBC RBC Hgb Hct MCV MCH RDW Plt Count Lymph % (Auto) [place] % (Auto) Eos % (Auto) Seg Neutrophils % Seg Neuts % (Manual) Lymphocytes % (Manual) Seg Neutrophils # Seg Neutrophils # Man Lymphocytes # (Manual) APTT POC ABG pH ABG pH POC ABG pCO2 POC ABG pO2 ABG pO2 ABG HCO3 ABG Base Excess ABG Hemoglobin VBG pH Oxyhemoglobin Sodium Potassium Chloride Carbon Dioxide BUN Creatinine Glucose POC Glucose 296 H 332 H 353 H Lactic Acid Calcium AST ALT Alkaline Phosphatase CK-MB (CK-2) CK-MB (CK-2) Rel Index Total Protein Albumin TSH Urine WBC (Auto) Salicylates 02/25/17 02/26/17 02/26/17 22:14 00:37 05:52 WBC RBC Hgb Hct MCV MCH RDW Plt Count Lymph % (Auto) [place] % (Auto) Eos % (Auto) Seg Neutrophils % Seg Neuts % (Manual) Lymphocytes % (Manual) Seg Neutrophils # Seg Neutrophils # Man Lymphocytes # (Manual) APTT POC ABG pH ABG pH POC ABG pCO2 POC ABG pO2 ABG pO2 ABG HCO3 ABG Base Excess ABG Hemoglobin VBG pH Oxyhemoglobin Sodium Potassium Chloride Carbon Dioxide BUN Creatinine Glucose POC Glucose 201 H 233 H 269 H Lactic Acid Calcium AST ALT Alkaline Phosphatase CK-MB (CK-2) CK-MB (CK-2) Rel Index Total Protein Albumin TSH Urine WBC (Auto) Salicylates 02/26/17 02/26/17 02/26/17 11:48 13:49 21:26 WBC RBC Hgb Hct MCV MCH RDW Plt Count Lymph % (Auto) [place] % (Auto) Eos % (Auto) Seg Neutrophils % Seg Neuts % (Manual) Lymphocytes % (Manual) Seg Neutrophils # Seg Neutrophils # Man Lymphocytes # (Manual) APTT POC ABG pH ABG pH POC ABG pCO2 POC ABG pO2 ABG pO2 ABG HCO3 ABG Base Excess ABG Hemoglobin VBG pH Oxyhemoglobin Sodium Potassium Chloride Carbon Dioxide BUN Creatinine Glucose POC Glucose 333 H 322 H 244 H Lactic Acid Calcium AST ALT Alkaline Phosphatase CK-MB (CK-2) CK-MB (CK-2) Rel Index Total Protein Albumin TSH Urine WBC (Auto) Salicylates 02/27/17 02/27/17 02/27/17 05:27 13:51 21:48 WBC RBC Hgb Hct MCV MCH RDW Plt Count Lymph % (Auto) [place] % (Auto) Eos % (Auto) Seg Neutrophils % Seg Neuts % (Manual) Lymphocytes % (Manual) Seg Neutrophils # Seg Neutrophils # Man Lymphocytes # (Manual) APTT POC ABG pH ABG pH POC ABG pCO2 POC ABG pO2 ABG pO2 ABG HCO3 ABG Base Excess ABG Hemoglobin VBG pH Oxyhemoglobin Sodium Potassium Chloride Carbon Dioxide BUN Creatinine Glucose POC Glucose 217 H 239 H 254 H Lactic Acid Calcium AST ALT Alkaline Phosphatase CK-MB (CK-2) CK-MB (CK-2) Rel Index Total Protein Albumin TSH Urine WBC (Auto) Salicylates 02/28/17 02/28/17 02/28/17 05:38 11:00 19:44 WBC RBC Hgb Hct MCV MCH RDW Plt Count Lymph % (Auto) [place] % (Auto) Eos % (Auto) Seg Neutrophils % Seg Neuts % (Manual) Lymphocytes % (Manual) Seg Neutrophils # Seg Neutrophils # Man Lymphocytes # (Manual) APTT POC ABG pH ABG pH POC ABG pCO2 POC ABG pO2 ABG pO2 ABG HCO3 ABG Base Excess ABG Hemoglobin VBG pH Oxyhemoglobin Sodium Potassium Chloride Carbon Dioxide BUN Creatinine Glucose POC Glucose 325 H 203 H 116 H Lactic Acid Calcium AST ALT Alkaline Phosphatase CK-MB (CK-2) CK-MB (CK-2) Rel Index Total Protein Albumin TSH Urine WBC (Auto) Salicylates 03/01/17 03/01/17 03/01/17 00:08 05:31 12:17 WBC RBC Hgb Hct MCV MCH RDW Plt Count Lymph % (Auto) [place] % (Auto) Eos % (Auto) Seg Neutrophils % Seg Neuts % (Manual) Lymphocytes % (Manual) Seg Neutrophils # Seg Neutrophils # Man Lymphocytes # (Manual) APTT POC ABG pH ABG pH POC ABG pCO2 POC ABG pO2 ABG pO2 ABG HCO3 ABG Base Excess ABG Hemoglobin VBG pH Oxyhemoglobin Sodium Potassium Chloride Carbon Dioxide BUN Creatinine Glucose POC Glucose 202 H 183 H 184 H Lactic Acid Calcium AST ALT Alkaline Phosphatase CK-MB (CK-2) CK-MB (CK-2) Rel Index Total Protein Albumin TSH Urine WBC (Auto) Salicylates 03/02/17 03/02/17 03/02/17 00:12 05:58 18:22 WBC RBC Hgb Hct MCV MCH RDW Plt Count Lymph % (Auto) [place] % (Auto) Eos % (Auto) Seg Neutrophils % Seg Neuts % (Manual) Lymphocytes % (Manual) Seg Neutrophils # Seg Neutrophils # Man Lymphocytes # (Manual) APTT POC ABG pH ABG pH POC ABG pCO2 POC ABG pO2 ABG pO2 ABG HCO3 ABG Base Excess ABG Hemoglobin VBG pH Oxyhemoglobin Sodium Potassium Chloride Carbon Dioxide BUN Creatinine Glucose POC Glucose 117 H 176 H 156 H Lactic Acid Calcium AST ALT Alkaline Phosphatase CK-MB (CK-2) CK-MB (CK-2) Rel Index Total Protein Albumin TSH Urine WBC (Auto) Salicylates 03/02/17 03/03/17 03/03/17 23:51 05:44 11:32 WBC RBC Hgb Hct MCV MCH RDW Plt Count Lymph % (Auto) [place] % (Auto) Eos % (Auto) Seg Neutrophils % Seg Neuts % (Manual) Lymphocytes % (Manual) Seg Neutrophils # Seg Neutrophils # Man Lymphocytes # (Manual) APTT POC ABG pH ABG pH POC ABG pCO2 POC ABG pO2 ABG pO2 ABG HCO3 ABG Base Excess ABG Hemoglobin VBG pH Oxyhemoglobin Sodium Potassium Chloride Carbon Dioxide BUN Creatinine Glucose POC Glucose 211 H 117 H 133 H Lactic Acid Calcium AST ALT Alkaline Phosphatase CK-MB (CK-2) CK-MB (CK-2) Rel Index Total Protein Albumin TSH Urine WBC (Auto) Salicylates 03/03/17 03/03/17 03/04/17 17:43 23:17 05:30 WBC RBC Hgb Hct MCV MCH RDW Plt Count Lymph % (Auto) [place] % (Auto) Eos % (Auto) Seg Neutrophils % Seg Neuts % (Manual) Lymphocytes % (Manual) Seg Neutrophils # Seg Neutrophils # Man Lymphocytes # (Manual) APTT POC ABG pH ABG pH POC ABG pCO2 POC ABG pO2 ABG pO2 ABG HCO3 ABG Base Excess ABG Hemoglobin VBG pH Oxyhemoglobin Sodium Potassium Chloride Carbon Dioxide BUN Creatinine Glucose POC Glucose 206 H 170 H 126 H Lactic Acid Calcium AST ALT Alkaline Phosphatase CK-MB (CK-2) CK-MB (CK-2) Rel Index Total Protein Albumin TSH Urine WBC (Auto) Salicylates 03/04/17 03/04/17 03/05/17 12:17 17:27 05:20 WBC RBC Hgb Hct MCV MCH RDW Plt Count Lymph % (Auto) [place] % (Auto) Eos % (Auto) Seg Neutrophils % Seg Neuts % (Manual) Lymphocytes % (Manual) Seg Neutrophils # Seg Neutrophils # Man Lymphocytes # (Manual) APTT POC ABG pH ABG pH POC ABG pCO2 POC ABG pO2 ABG pO2 ABG HCO3 ABG Base Excess ABG Hemoglobin VBG pH Oxyhemoglobin Sodium Potassium Chloride Carbon Dioxide BUN Creatinine Glucose POC Glucose 135 H 121 H 185 H Lactic Acid Calcium AST ALT Alkaline Phosphatase CK-MB (CK-2) CK-MB (CK-2) Rel Index Total Protein Albumin TSH Urine WBC (Auto) Salicylates 03/05/17 03/06/17 03/06/17 11:50 11:52 17:34 WBC RBC Hgb Hct MCV MCH RDW Plt Count Lymph % (Auto) [place] % (Auto) Eos % (Auto) Seg Neutrophils % Seg Neuts % (Manual) Lymphocytes % (Manual) Seg Neutrophils # Seg Neutrophils # Man Lymphocytes # (Manual) APTT POC ABG pH ABG pH POC ABG pCO2 POC ABG pO2 ABG pO2 ABG HCO3 ABG Base Excess ABG Hemoglobin VBG pH Oxyhemoglobin Sodium Potassium Chloride Carbon Dioxide BUN Creatinine Glucose POC Glucose 116 H 133 H 181 H Lactic Acid Calcium AST ALT Alkaline Phosphatase CK-MB (CK-2) CK-MB (CK-2) Rel Index Total Protein Albumin TSH Urine WBC (Auto) Salicylates 03/07/17 03/07/17 03/07/17 05:21 11:36 17:49 WBC RBC Hgb Hct MCV MCH RDW Plt Count Lymph % (Auto) [place] % (Auto) Eos % (Auto) Seg Neutrophils % Seg Neuts % (Manual) Lymphocytes % (Manual) Seg Neutrophils # Seg Neutrophils # Man Lymphocytes # (Manual) APTT POC ABG pH ABG pH POC ABG pCO2 POC ABG pO2 ABG pO2 ABG HCO3 ABG Base Excess ABG Hemoglobin VBG pH Oxyhemoglobin Sodium Potassium Chloride Carbon Dioxide BUN Creatinine Glucose POC Glucose 159 H 137 H 158 H Lactic Acid Calcium AST ALT Alkaline Phosphatase CK-MB (CK-2) CK-MB (CK-2) Rel Index Total Protein Albumin TSH Urine WBC (Auto) Salicylates 03/08/17 03/08/17 03/08/17 05:51 13:58 23:50 WBC RBC Hgb Hct MCV MCH RDW Plt Count Lymph % (Auto) [place] % (Auto) Eos % (Auto) Seg Neutrophils % Seg Neuts % (Manual) Lymphocytes % (Manual) Seg Neutrophils # Seg Neutrophils # Man Lymphocytes # (Manual) APTT POC ABG pH ABG pH POC ABG pCO2 POC ABG pO2 ABG pO2 ABG HCO3 ABG Base Excess ABG Hemoglobin VBG pH Oxyhemoglobin Sodium Potassium Chloride Carbon Dioxide BUN Creatinine Glucose POC Glucose 122 H 182 H 114 H Lactic Acid Calcium AST ALT Alkaline Phosphatase CK-MB (CK-2) CK-MB (CK-2) Rel Index Total Protein Albumin TSH Urine WBC (Auto) Salicylates 03/09/17 03/09/17 03/09/17 05:21 05:51 05:51 WBC RBC 3.61 L Hgb 9.5 L Hct 28.3 L MCV 79 L MCH 26 L RDW 17.8 H Plt Count Lymph % (Auto) [place] % (Auto) Eos % (Auto) Seg Neutrophils % Seg Neuts % (Manual) Lymphocytes % (Manual) Seg Neutrophils # Seg Neutrophils # Man Lymphocytes # (Manual) APTT POC ABG pH ABG pH POC ABG pCO2 POC ABG pO2 ABG pO2 ABG HCO3 ABG Base Excess ABG Hemoglobin VBG pH Oxyhemoglobin Sodium 134 L Potassium Chloride 95.5 L Carbon Dioxide BUN 33 H Creatinine 0.5 L Glucose 143 H POC Glucose 153 H Lactic Acid Calcium AST ALT Alkaline Phosphatase CK-MB (CK-2) CK-MB (CK-2) Rel Index Total Protein Albumin TSH Urine WBC (Auto) Salicylates 03/09/17 03/09/17 03/09/17 12:10 18:13 21:00 WBC RBC Hgb Hct MCV MCH RDW Plt Count Lymph % (Auto) [place] % (Auto) Eos % (Auto) Seg Neutrophils % Seg Neuts % (Manual) Lymphocytes % (Manual) Seg Neutrophils # Seg Neutrophils # Man Lymphocytes # (Manual) APTT POC ABG pH ABG pH POC ABG pCO2 POC ABG pO2 ABG pO2 ABG HCO3 ABG Base Excess ABG Hemoglobin VBG pH Oxyhemoglobin Sodium Potassium Chloride Carbon Dioxide BUN Creatinine Glucose POC Glucose 203 H 221 H 198 H Lactic Acid Calcium AST ALT Alkaline Phosphatase CK-MB (CK-2) CK-MB (CK-2) Rel Index Total Protein Albumin TSH Urine WBC (Auto) Salicylates 03/09/17 03/10/17 03/10/17 23:58 05:09 05:09 WBC RBC Hgb 10.3 L Hct 30.5 L MCV 78 L MCH 26 L RDW 17.9 H Plt Count Lymph % (Auto) [place] % (Auto) 10.0 H Eos % (Auto) 6.0 H Seg Neutrophils % Seg Neuts % (Manual) Lymphocytes % (Manual) Seg Neutrophils # Seg Neutrophils # Man Lymphocytes # (Manual) APTT POC ABG pH ABG pH POC ABG pCO2 POC ABG pO2 ABG pO2 ABG HCO3 ABG Base Excess ABG Hemoglobin VBG pH Oxyhemoglobin Sodium 132 L Potassium Chloride 92.2 L Carbon Dioxide BUN 33 H Creatinine 0.5 L Glucose 50 L POC Glucose 167 H Lactic Acid Calcium AST ALT Alkaline Phosphatase CK-MB (CK-2) CK-MB (CK-2) Rel Index Total Protein Albumin TSH Urine WBC (Auto) Salicylates 03/10/17 03/10/17 03/10/17 05:33 05:34 11:48 WBC RBC Hgb Hct MCV MCH RDW Plt Count Lymph % (Auto) [place] % (Auto) Eos % (Auto) Seg Neutrophils % Seg Neuts % (Manual) Lymphocytes % (Manual) Seg Neutrophils # Seg Neutrophils # Man Lymphocytes # (Manual) APTT POC ABG pH ABG pH POC ABG pCO2 POC ABG pO2 ABG pO2 ABG HCO3 ABG Base Excess ABG Hemoglobin VBG pH Oxyhemoglobin Sodium Potassium Chloride Carbon Dioxide BUN Creatinine Glucose POC Glucose 52 L 53 L 148 H Lactic Acid Calcium AST ALT Alkaline Phosphatase CK-MB (CK-2) CK-MB (CK-2) Rel Index Total Protein Albumin TSH Urine WBC (Auto) Salicylates 03/10/17 03/10/17 03/11/17 17:53 23:47 05:18 WBC RBC Hgb Hct MCV MCH RDW Plt Count Lymph % (Auto) [place] % (Auto) Eos % (Auto) Seg Neutrophils % Seg Neuts % (Manual) Lymphocytes % (Manual) Seg Neutrophils # Seg Neutrophils # Man Lymphocytes # (Manual) APTT POC ABG pH ABG pH POC ABG pCO2 POC ABG pO2 ABG pO2 ABG HCO3 ABG Base Excess ABG Hemoglobin VBG pH Oxyhemoglobin Sodium Potassium Chloride Carbon Dioxide BUN Creatinine Glucose POC Glucose 189 H 398 H 126 H Lactic Acid Calcium AST ALT Alkaline Phosphatase CK-MB (CK-2) CK-MB (CK-2) Rel Index Total Protein Albumin TSH Urine WBC (Auto) Salicylates 03/11/17 03/11/17 03/11/17 11:53 17:30 23:10 WBC RBC Hgb Hct MCV MCH RDW Plt Count Lymph % (Auto) [place] % (Auto) Eos % (Auto) Seg Neutrophils % Seg Neuts % (Manual) Lymphocytes % (Manual) Seg Neutrophils # Seg Neutrophils # Man Lymphocytes # (Manual) APTT POC ABG pH ABG pH POC ABG pCO2 POC ABG pO2 ABG pO2 ABG HCO3 ABG Base Excess ABG Hemoglobin VBG pH Oxyhemoglobin Sodium Potassium Chloride Carbon Dioxide BUN Creatinine Glucose POC Glucose 198 H 142 H 244 H Lactic Acid Calcium AST ALT Alkaline Phosphatase CK-MB (CK-2) CK-MB (CK-2) Rel Index Total Protein Albumin TSH Urine WBC (Auto) Salicylates 03/12/17 03/12/17 03/12/17 04:36 11:49 17:23 WBC RBC Hgb Hct MCV MCH RDW Plt Count Lymph % (Auto) [place] % (Auto) Eos % (Auto) Seg Neutrophils % Seg Neuts % (Manual) Lymphocytes % (Manual) Seg Neutrophils # Seg Neutrophils # Man Lymphocytes # (Manual) APTT POC ABG pH ABG pH POC ABG pCO2 POC ABG pO2 ABG pO2 ABG HCO3 ABG Base Excess ABG Hemoglobin VBG pH Oxyhemoglobin Sodium Potassium Chloride Carbon Dioxide BUN Creatinine Glucose POC Glucose 205 H 197 H 209 H Lactic Acid Calcium AST ALT Alkaline Phosphatase CK-MB (CK-2) CK-MB (CK-2) Rel Index Total Protein Albumin TSH Urine WBC (Auto) Salicylates 03/12/17 03/13/17 03/13/17 23:51 05:32 11:43 WBC RBC Hgb Hct MCV MCH RDW Plt Count Lymph % (Auto) [place] % (Auto) Eos % (Auto) Seg Neutrophils % Seg Neuts % (Manual) Lymphocytes % (Manual) Seg Neutrophils # Seg Neutrophils # Man Lymphocytes # (Manual) APTT POC ABG pH ABG pH POC ABG pCO2 POC ABG pO2 ABG pO2 ABG HCO3 ABG Base Excess ABG Hemoglobin VBG pH Oxyhemoglobin Sodium Potassium Chloride Carbon Dioxide BUN Creatinine Glucose POC Glucose 210 H 154 H 164 H Lactic Acid Calcium AST ALT Alkaline Phosphatase CK-MB (CK-2) CK-MB (CK-2) Rel Index Total Protein Albumin TSH Urine WBC (Auto) Salicylates 03/13/17 03/13/17 03/14/17 17:11 23:26 05:42 WBC RBC Hgb Hct MCV MCH RDW Plt Count Lymph % (Auto) [place] % (Auto) Eos % (Auto) Seg Neutrophils % Seg Neuts % (Manual) Lymphocytes % (Manual) Seg Neutrophils # Seg Neutrophils # Man Lymphocytes # (Manual) APTT POC ABG pH ABG pH POC ABG pCO2 POC ABG pO2 ABG pO2 ABG HCO3 ABG Base Excess ABG Hemoglobin VBG pH Oxyhemoglobin Sodium Potassium Chloride Carbon Dioxide BUN Creatinine Glucose POC Glucose 195 H 240 H 230 H Lactic Acid Calcium AST ALT Alkaline Phosphatase CK-MB (CK-2) CK-MB (CK-2) Rel Index Total Protein Albumin TSH Urine WBC (Auto) Salicylates 03/14/17 03/14/17 03/14/17 14:04 17:34 23:42 WBC RBC Hgb Hct MCV MCH RDW Plt Count Lymph % (Auto) [place] % (Auto) Eos % (Auto) Seg Neutrophils % Seg Neuts % (Manual) Lymphocytes % (Manual) Seg Neutrophils # Seg Neutrophils # Man Lymphocytes # (Manual) APTT POC ABG pH ABG pH POC ABG pCO2 POC ABG pO2 ABG pO2 ABG HCO3 ABG Base Excess ABG Hemoglobin VBG pH Oxyhemoglobin Sodium Potassium Chloride Carbon Dioxide BUN Creatinine Glucose POC Glucose 227 H 186 H 225 H Lactic Acid Calcium AST ALT Alkaline Phosphatase CK-MB (CK-2) CK-MB (CK-2) Rel Index Total Protein Albumin TSH Urine WBC (Auto) Salicylates 03/15/17 03/15/17 03/15/17 05:21 17:13 21:37 WBC RBC Hgb Hct MCV MCH RDW Plt Count Lymph % (Auto) [place] % (Auto) Eos % (Auto) Seg Neutrophils % Seg Neuts % (Manual) Lymphocytes % (Manual) Seg Neutrophils # Seg Neutrophils # Man Lymphocytes # (Manual) APTT POC ABG pH ABG pH POC ABG pCO2 POC ABG pO2 ABG pO2 ABG HCO3 ABG Base Excess ABG Hemoglobin VBG pH Oxyhemoglobin Sodium Potassium Chloride Carbon Dioxide BUN Creatinine Glucose POC Glucose 244 H 203 H 216 H Lactic Acid Calcium AST ALT Alkaline Phosphatase CK-MB (CK-2) CK-MB (CK-2) Rel Index Total Protein Albumin TSH Urine WBC (Auto) Salicylates 03/16/17 03/16/17 03/16/17 05:52 18:07 21:54 WBC RBC Hgb Hct MCV MCH RDW Plt Count Lymph % (Auto) [place] % (Auto) Eos % (Auto) Seg Neutrophils % Seg Neuts % (Manual) Lymphocytes % (Manual) Seg Neutrophils # Seg Neutrophils # Man Lymphocytes # (Manual) APTT POC ABG pH ABG pH POC ABG pCO2 POC ABG pO2 ABG pO2 ABG HCO3 ABG Base Excess ABG Hemoglobin VBG pH Oxyhemoglobin Sodium Potassium Chloride Carbon Dioxide BUN Creatinine Glucose POC Glucose 248 H 254 H 244 H Lactic Acid Calcium AST ALT Alkaline Phosphatase CK-MB (CK-2) CK-MB (CK-2) Rel Index Total Protein Albumin TSH Urine WBC (Auto) Salicylates 03/17/17 03/17/17 03/17/17 07:07 07:42 07:43 WBC RBC Hgb 9.7 L Hct 29.1 L MCV 78 L MCH 26 L RDW 17.4 H Plt Count Lymph % (Auto) [place] % (Auto) Eos % (Auto) Seg Neutrophils % Seg Neuts % (Manual) Lymphocytes % (Manual) Seg Neutrophils # Seg Neutrophils # Man Lymphocytes # (Manual) APTT POC ABG pH ABG pH POC ABG pCO2 POC ABG pO2 ABG pO2 ABG HCO3 ABG Base Excess ABG Hemoglobin VBG pH Oxyhemoglobin Sodium Potassium Chloride 96.6 L Carbon Dioxide BUN 30 H Creatinine 0.5 L Glucose 251 H POC Glucose 222 H Lactic Acid Calcium AST ALT Alkaline Phosphatase CK-MB (CK-2) CK-MB (CK-2) Rel Index Total Protein Albumin TSH Urine WBC (Auto) Salicylates 03/17/17 03/17/17 03/18/17 14:08 21:20 14:24 WBC RBC Hgb Hct MCV MCH RDW Plt Count Lymph % (Auto) [place] % (Auto) Eos % (Auto) Seg Neutrophils % Seg Neuts % (Manual) Lymphocytes % (Manual) Seg Neutrophils # Seg Neutrophils # Man Lymphocytes # (Manual) APTT POC ABG pH ABG pH POC ABG pCO2 POC ABG pO2 ABG pO2 ABG HCO3 ABG Base Excess ABG Hemoglobin VBG pH Oxyhemoglobin Sodium Potassium Chloride Carbon Dioxide BUN Creatinine Glucose POC Glucose 281 H 239 H 195 H Lactic Acid Calcium AST ALT Alkaline Phosphatase CK-MB (CK-2) CK-MB (CK-2) Rel Index Total Protein Albumin TSH Urine WBC (Auto) Salicylates 03/18/17 03/19/17 03/19/17 21:37 04:57 14:23 WBC RBC Hgb Hct MCV MCH RDW Plt Count Lymph % (Auto) [place] % (Auto) Eos % (Auto) Seg Neutrophils % Seg Neuts % (Manual) Lymphocytes % (Manual) Seg Neutrophils # Seg Neutrophils # Man Lymphocytes # (Manual) APTT POC ABG pH ABG pH POC ABG pCO2 POC ABG pO2 ABG pO2 ABG HCO3 ABG Base Excess ABG Hemoglobin VBG pH Oxyhemoglobin Sodium Potassium Chloride Carbon Dioxide BUN Creatinine Glucose POC Glucose 227 H 205 H 277 H Lactic Acid Calcium AST ALT Alkaline Phosphatase CK-MB (CK-2) CK-MB (CK-2) Rel Index Total Protein Albumin TSH Urine WBC (Auto) Salicylates 03/19/17 03/19/17 03/20/17 20:31 21:47 04:55 WBC RBC Hgb Hct MCV MCH RDW Plt Count Lymph % (Auto) [place] % (Auto) Eos % (Auto) Seg Neutrophils % Seg Neuts % (Manual) Lymphocytes % (Manual) Seg Neutrophils # Seg Neutrophils # Man Lymphocytes # (Manual) APTT POC ABG pH ABG pH POC ABG pCO2 POC ABG pO2 ABG pO2 ABG HCO3 ABG Base Excess ABG Hemoglobin VBG pH Oxyhemoglobin Sodium Potassium Chloride Carbon Dioxide BUN Creatinine Glucose POC Glucose 256 H 270 H 202 H Lactic Acid Calcium AST ALT Alkaline Phosphatase CK-MB (CK-2) CK-MB (CK-2) Rel Index Total Protein Albumin TSH Urine WBC (Auto) Salicylates 03/20/17 03/20/17 03/21/17 14:09 21:40 05:09 WBC RBC Hgb Hct MCV MCH RDW Plt Count Lymph % (Auto) [place] % (Auto) Eos % (Auto) Seg Neutrophils % Seg Neuts % (Manual) Lymphocytes % (Manual) Seg Neutrophils # Seg Neutrophils # Man Lymphocytes # (Manual) APTT POC ABG pH ABG pH POC ABG pCO2 POC ABG pO2 ABG pO2 ABG HCO3 ABG Base Excess ABG Hemoglobin VBG pH Oxyhemoglobin Sodium Potassium Chloride Carbon Dioxide BUN Creatinine Glucose POC Glucose 200 H 214 H 233 H Lactic Acid Calcium AST ALT Alkaline Phosphatase CK-MB (CK-2) CK-MB (CK-2) Rel Index Total Protein Albumin TSH Urine WBC (Auto) Salicylates 03/21/17 03/21/17 03/22/17 14:06 21:26 05:43 WBC RBC Hgb Hct MCV MCH RDW Plt Count Lymph % (Auto) [place] % (Auto) Eos % (Auto) Seg Neutrophils % Seg Neuts % (Manual) Lymphocytes % (Manual) Seg Neutrophils # Seg Neutrophils # Man Lymphocytes # (Manual) APTT POC ABG pH ABG pH POC ABG pCO2 POC ABG pO2 ABG pO2 ABG HCO3 ABG Base Excess ABG Hemoglobin VBG pH Oxyhemoglobin Sodium Potassium Chloride Carbon Dioxide BUN Creatinine Glucose POC Glucose 250 H 155 H 251 H Lactic Acid Calcium AST ALT Alkaline Phosphatase CK-MB (CK-2) CK-MB (CK-2) Rel Index Total Protein Albumin TSH Urine WBC (Auto) Salicylates 03/22/17 03/22/17 03/23/17 13:46 21:16 00:23 WBC RBC Hgb Hct MCV MCH RDW Plt Count Lymph % (Auto) [place] % (Auto) Eos % (Auto) Seg Neutrophils % Seg Neuts % (Manual) Lymphocytes % (Manual) Seg Neutrophils # Seg Neutrophils # Man Lymphocytes # (Manual) APTT POC ABG pH ABG pH POC ABG pCO2 POC ABG pO2 ABG pO2 ABG HCO3 ABG Base Excess ABG Hemoglobin VBG pH Oxyhemoglobin Sodium Potassium Chloride Carbon Dioxide BUN Creatinine Glucose POC Glucose 269 H 197 H 126 H Lactic Acid Calcium AST ALT Alkaline Phosphatase CK-MB (CK-2) CK-MB (CK-2) Rel Index Total Protein Albumin TSH Urine WBC (Auto) Salicylates 03/23/17 03/23/17 03/23/17 05:39 14:06 21:39 WBC RBC Hgb Hct MCV MCH RDW Plt Count Lymph % (Auto) Gilliam % (Auto) Eos % (Auto) Seg Neutrophils % Seg Neuts % (Manual) Lymphocytes % (Manual) Seg Neutrophils # Seg Neutrophils # Man Lymphocytes # (Manual) APTT POC ABG pH ABG pH POC ABG pCO2 POC ABG pO2 ABG pO2 ABG HCO3 ABG Base Excess ABG Hemoglobin VBG pH Oxyhemoglobin Sodium Potassium Chloride Carbon Dioxide BUN Creatinine Glucose POC Glucose 234 H 241 H 248 H Lactic Acid Calcium AST ALT Alkaline Phosphatase CK-MB (CK-2) CK-MB (CK-2) Rel Index Total Protein Albumin TSH Urine WBC (Auto) Salicylates 03/24/17 03/24/17 03/25/17 05:06 21:46 05:38 WBC RBC Hgb Hct MCV MCH RDW Plt Count Lymph % (Auto) Gilliam % (Auto) Eos % (Auto) Seg Neutrophils % Seg Neuts % (Manual) Lymphocytes % (Manual) Seg Neutrophils # Seg Neutrophils # Man Lymphocytes # (Manual) APTT POC ABG pH ABG pH POC ABG pCO2 POC ABG pO2 ABG pO2 ABG HCO3 ABG Base Excess ABG Hemoglobin VBG pH Oxyhemoglobin Sodium Potassium Chloride Carbon Dioxide BUN Creatinine Glucose POC Glucose 232 H 276 H 242 H Lactic Acid Calcium AST ALT Alkaline Phosphatase CK-MB (CK-2) CK-MB (CK-2) Rel Index Total Protein Albumin TSH Urine WBC (Auto) Salicylates 03/25/17 03/25/17 03/26/17 14:30 23:14 13:53 WBC RBC Hgb Hct MCV MCH RDW Plt Count Lymph % (Auto) Gilliam % (Auto) Eos % (Auto) Seg Neutrophils % Seg Neuts % (Manual) Lymphocytes % (Manual) Seg Neutrophils # Seg Neutrophils # Man Lymphocytes # (Manual) APTT POC ABG pH ABG pH POC ABG pCO2 POC ABG pO2 ABG pO2 ABG HCO3 ABG Base Excess ABG Hemoglobin VBG pH Oxyhemoglobin Sodium Potassium Chloride Carbon Dioxide BUN Creatinine Glucose POC Glucose 246 H 208 H 195 H Lactic Acid Calcium AST ALT Alkaline Phosphatase CK-MB (CK-2) CK-MB (CK-2) Rel Index Total Protein Albumin TSH Urine WBC (Auto) Salicylates 03/26/17 03/27/17 03/27/17 21:58 05:18 14:57 WBC RBC Hgb Hct MCV MCH RDW Plt Count Lymph % (Auto) Gilliam % (Auto) Eos % (Auto) Seg Neutrophils % Seg Neuts % (Manual) Lymphocytes % (Manual) Seg Neutrophils # Seg Neutrophils # Man Lymphocytes # (Manual) APTT POC ABG pH ABG pH POC ABG pCO2 POC ABG pO2 ABG pO2 ABG HCO3 ABG Base Excess ABG Hemoglobin VBG pH Oxyhemoglobin Sodium Potassium Chloride Carbon Dioxide BUN Creatinine Glucose POC Glucose 241 H 199 H 269 H Lactic Acid Calcium AST ALT Alkaline Phosphatase CK-MB (CK-2) CK-MB (CK-2) Rel Index Total Protein Albumin TSH Urine WBC (Auto) Salicylates 03/27/17 03/28/17 03/28/17 21:33 13:52 21:29 WBC RBC Hgb Hct MCV MCH RDW Plt Count Lymph % (Auto) Gilliam % (Auto) Eos % (Auto) Seg Neutrophils % Seg Neuts % (Manual) Lymphocytes % (Manual) Seg Neutrophils # Seg Neutrophils # Man Lymphocytes # (Manual) APTT POC ABG pH ABG pH POC ABG pCO2 POC ABG pO2 ABG pO2 ABG HCO3 ABG Base Excess ABG Hemoglobin VBG pH Oxyhemoglobin Sodium Potassium Chloride Carbon Dioxide BUN Creatinine Glucose POC Glucose 214 H 243 H 286 H Lactic Acid Calcium AST ALT Alkaline Phosphatase CK-MB (CK-2) CK-MB (CK-2) Rel Index Total Protein Albumin TSH Urine WBC (Auto) Salicylates 03/29/17 03/29/17 03/29/17 04:32 04:32 13:58 WBC RBC Hgb 10.6 L Hct 32.9 L MCV 78 L MCH 25 L RDW 17.6 H Plt Count Lymph % (Auto) 38.0 H Gilliam % (Auto) 9.7 H Eos % (Auto) Seg Neutrophils % Seg Neuts % (Manual) Lymphocytes % (Manual) Seg Neutrophils # Seg Neutrophils # Man Lymphocytes # (Manual) APTT POC ABG pH ABG pH POC ABG pCO2 POC ABG pO2 ABG pO2 ABG HCO3 ABG Base Excess ABG Hemoglobin VBG pH Oxyhemoglobin Sodium 132 L Potassium Chloride 94.0 L Carbon Dioxide BUN 28 H Creatinine 0.5 L Glucose 236 H POC Glucose 171 H Lactic Acid Calcium AST ALT 71 H Alkaline Phosphatase 391 H CK-MB (CK-2) CK-MB (CK-2) Rel Index Total Protein 8.3 H Albumin 2.9 L TSH Urine WBC (Auto) Salicylates 03/29/17 03/30/17 03/30/17 20:59 06:07 11:52 WBC RBC Hgb Hct MCV MCH RDW Plt Count Lymph % (Auto) Gilliam % (Auto) Eos % (Auto) Seg Neutrophils % Seg Neuts % (Manual) Lymphocytes % (Manual) Seg Neutrophils # Seg Neutrophils # Man Lymphocytes # (Manual) APTT POC ABG pH ABG pH POC ABG pCO2 POC ABG pO2 ABG pO2 ABG HCO3 ABG Base Excess ABG Hemoglobin VBG pH Oxyhemoglobin Sodium Potassium Chloride Carbon Dioxide BUN Creatinine Glucose POC Glucose 215 H 259 H 197 H Lactic Acid Calcium AST ALT Alkaline Phosphatase CK-MB (CK-2) CK-MB (CK-2) Rel Index Total Protein Albumin TSH Urine WBC (Auto) Salicylates 03/30/17 03/31/17 03/31/17 21:34 05:42 14:34 WBC RBC Hgb Hct MCV MCH RDW Plt Count Lymph % (Auto) Gilliam % (Auto) Eos % (Auto) Seg Neutrophils % Seg Neuts % (Manual) Lymphocytes % (Manual) Seg Neutrophils # Seg Neutrophils # Man Lymphocytes # (Manual) APTT POC ABG pH ABG pH POC ABG pCO2 POC ABG pO2 ABG pO2 ABG HCO3 ABG Base Excess ABG Hemoglobin VBG pH Oxyhemoglobin Sodium Potassium Chloride Carbon Dioxide BUN Creatinine Glucose POC Glucose 207 H 184 H 213 H Lactic Acid Calcium AST ALT Alkaline Phosphatase CK-MB (CK-2) CK-MB (CK-2) Rel Index Total Protein Albumin TSH Urine WBC (Auto) Salicylates 03/31/17 04/01/17 04/01/17 21:32 05:53 13:48 WBC RBC Hgb Hct MCV MCH RDW Plt Count Lymph % (Auto) Gilliam % (Auto) Eos % (Auto) Seg Neutrophils % Seg Neuts % (Manual) Lymphocytes % (Manual) Seg Neutrophils # Seg Neutrophils # Man Lymphocytes # (Manual) APTT POC ABG pH ABG pH POC ABG pCO2 POC ABG pO2 ABG pO2 ABG HCO3 ABG Base Excess ABG Hemoglobin VBG pH Oxyhemoglobin Sodium Potassium Chloride Carbon Dioxide BUN Creatinine Glucose POC Glucose 249 H 225 H 256 H Lactic Acid Calcium AST ALT Alkaline Phosphatase CK-MB (CK-2) CK-MB (CK-2) Rel Index Total Protein Albumin TSH Urine WBC (Auto) Salicylates 04/01/17 04/02/17 04/02/17 21:34 05:32 14:05 WBC RBC Hgb Hct MCV MCH RDW Plt Count Lymph % (Auto) Gilliam % (Auto) Eos % (Auto) Seg Neutrophils % Seg Neuts % (Manual) Lymphocytes % (Manual) Seg Neutrophils # Seg Neutrophils # Man Lymphocytes # (Manual) APTT POC ABG pH ABG pH POC ABG pCO2 POC ABG pO2 ABG pO2 ABG HCO3 ABG Base Excess ABG Hemoglobin VBG pH Oxyhemoglobin Sodium Potassium Chloride Carbon Dioxide BUN Creatinine Glucose POC Glucose 292 H 220 H 187 H Lactic Acid Calcium AST ALT Alkaline Phosphatase CK-MB (CK-2) CK-MB (CK-2) Rel Index Total Protein Albumin TSH Urine WBC (Auto) Salicylates 04/02/17 04/03/17 04/03/17 21:57 04:49 14:12 WBC RBC Hgb Hct MCV MCH RDW Plt Count Lymph % (Auto) Gilliam % (Auto) Eos % (Auto) Seg Neutrophils % Seg Neuts % (Manual) Lymphocytes % (Manual) Seg Neutrophils # Seg Neutrophils # Man Lymphocytes # (Manual) APTT POC ABG pH ABG pH POC ABG pCO2 POC ABG pO2 ABG pO2 ABG HCO3 ABG Base Excess ABG Hemoglobin VBG pH Oxyhemoglobin Sodium Potassium Chloride Carbon Dioxide BUN Creatinine Glucose POC Glucose 285 H 256 H 197 H Lactic Acid Calcium AST ALT Alkaline Phosphatase CK-MB (CK-2) CK-MB (CK-2) Rel Index Total Protein Albumin TSH Urine WBC (Auto) Salicylates 04/03/17 04/04/17 04/04/17 21:11 05:20 13:18 WBC RBC Hgb Hct MCV MCH RDW Plt Count Lymph % (Auto) Gilliam % (Auto) Eos % (Auto) Seg Neutrophils % Seg Neuts % (Manual) Lymphocytes % (Manual) Seg Neutrophils # Seg Neutrophils # Man Lymphocytes # (Manual) APTT POC ABG pH ABG pH POC ABG pCO2 POC ABG pO2 ABG pO2 ABG HCO3 ABG Base Excess ABG Hemoglobin VBG pH Oxyhemoglobin Sodium Potassium Chloride Carbon Dioxide BUN Creatinine Glucose POC Glucose 166 H 228 H 252 H Lactic Acid Calcium AST ALT Alkaline Phosphatase CK-MB (CK-2) CK-MB (CK-2) Rel Index Total Protein Albumin TSH Urine WBC (Auto) Salicylates 04/04/17 04/05/17 04/05/17 21:51 06:14 09:54 WBC RBC Hgb Hct MCV MCH RDW Plt Count Lymph % (Auto) Gilliam % (Auto) Eos % (Auto) Seg Neutrophils % Seg Neuts % (Manual) Lymphocytes % (Manual) Seg Neutrophils # Seg Neutrophils # Man Lymphocytes # (Manual) APTT POC ABG pH ABG pH POC ABG pCO2 POC ABG pO2 ABG pO2 ABG HCO3 ABG Base Excess ABG Hemoglobin VBG pH Oxyhemoglobin Sodium Potassium Chloride Carbon Dioxide BUN Creatinine Glucose POC Glucose 252 H 152 H 181 H Lactic Acid Calcium AST ALT Alkaline Phosphatase CK-MB (CK-2) CK-MB (CK-2) Rel Index Total Protein Albumin TSH Urine WBC (Auto) Salicylates 04/05/17 14:49 WBC RBC Hgb Hct MCV MCH RDW Plt Count Lymph % (Auto) Gilliam % (Auto) Eos % (Auto) Seg Neutrophils % Seg Neuts % (Manual) Lymphocytes % (Manual) Seg Neutrophils # Seg Neutrophils # Man Lymphocytes # (Manual) APTT POC ABG pH ABG pH POC ABG pCO2 POC ABG pO2 ABG pO2 ABG HCO3 ABG Base Excess ABG Hemoglobin VBG pH Oxyhemoglobin Sodium Potassium Chloride Carbon Dioxide BUN Creatinine Glucose POC Glucose 219 H Lactic Acid Calcium AST ALT Alkaline Phosphatase CK-MB (CK-2) CK-MB (CK-2) Rel Index Total Protein Albumin TSH Urine WBC (Auto) Salicylates Chest x-ray: report reviewed, image reviewed
--- NOTE | 2017-04-05 18:20 | Progress Note ---
Assessment and Plan Hypoglycemic brain injury Persistent vegetative state Metabolic encephalopathy Hypoglycemia/hypothermia, resolved Acute respiratory failure mechanical ventilator greater than 96 hours UTI with klebsiella, treated ( Cx + on 01/28), then with ESBL likely colonization hyponatremia, Hypothyroidism IDDM Hypertension low grade Fever, resolved - Cont supportive care and current medication. Monitor vitals, repeat cx on - no growth - increased dose of long acting insulin to 15 unit - Patient is DNR- needs guardianship from the state to give consent for further management, as has no family to give consent. Brief History: 51 YO Male with CKD,HTN, DM presents to ED after found down and unresponsive by his neighbor, who subsequently called EMS. Upon arrival, patient found unresponsive on the floor with a serum glucose of 21, patient has a known history of alcohol abuse and delirium tremens. The patient was administered D5 approximate 500 mls during transport without change in mental status/level of consciousness. Pt seen and evaluated in ED was was found to be unable to protect his airway. Pt intubated and placed on vent support. Pt found to have evidence of hypothyroidism. He was started on Synthroid. He has since been in the ICU. social services designee try to locate family, even spoke to the family who he lives with. They themselves were unaware of any family members. After ethics committee meeting on the patient. The decision was made to make him DO NOT RESUSCITATE and to transfer him to hospice. Given his very poor prognosis and poor likelihood of recovery. It was decided that was not his best interest to get trach and PEG. Therefore he'll be transferred to the hospice intubated. Now Awaiting on court ordered /state guardianship. Hospitalist Physical - Physical exam Narrative exam: General: comatose HEENT: Moist mucous membranes, , no lymphadenopathy Neck: supple Cardiac: S1-S2 heard Lungs: mechnical ventilated breath sounds Abdomen: soft , nontender, nondistended, bowel sounds positive Extremities: no edema clubbing or cyanosis Skin: no rash or lesions Neurologic: opens eyes, no response to deep painful stimuli, does not follow commend Subjective Date of service: 04/05/17 Principal diagnosis: Acute respiratory failure,encephalopathy Interval history: patient remains comatose, no movement of extremities afebrile o/n, no clinical change Objective - Constitutional Vitals: Vital Signs - 12hr 04/05/17 04/05/17 04/05/17 07:19 08:00 09:25 Temperature 97.6 F Pulse Rate 70 68 Pulse Rate [ 67 From Monitor] Respiratory 18 22 Rate Blood Pressure 111/75 119/76 O2 Sat by Pulse 99 75 L Oximetry 04/05/17 04/05/17 04/05/17 10:00 11:43 12:00 Temperature Pulse Rate 68 64 63 Pulse Rate [ From Monitor] Respiratory 24 25 H 18 Rate Blood Pressure 119/76 119/76 119/76 O2 Sat by Pulse 100 100 100 Oximetry 04/05/17 04/05/17 04/05/17 12:45 14:00 15:46 Temperature 98.2 F Pulse Rate 68 65 Pulse Rate [ From Monitor] Respiratory 15 25 H Rate Blood Pressure 119/76 119/76 O2 Sat by Pulse 100 100 Oximetry 04/05/17 04/05/17 16:00 16:19 Temperature 97.9 F Pulse Rate 67 Pulse Rate [ From Monitor] Respiratory 14 Rate Blood Pressure 133/85 O2 Sat by Pulse 100 Oximetry - Labs CBC & Chem 7: 03/29/17 04:32 03/29/17 04:32 Labs: Abnormal lab results 04/04/17 04/04/17 04/05/17 Range/Units 13:18 21:51 06:14 POC Glucose 252 H 252 H 152 H (70-105) 04/05/17 04/05/17 04/05/17 Range/Units 09:54 14:49 17:34 POC Glucose 181 H 219 H 268 H (70-105)
[2017-04-06] MEDS: SYNTHROID PO SCH (05:44)
[2017-04-06] MEDS: HumuLIN R SUB-Q SCH ×3 (06:31→22:00)
[2017-04-06] MEDS: TYLENOL FEEDTUBE PRN ×2 (08:59→23:15)
[2017-04-06] MEDS: HEPARIN SUB-Q SCH ×2 (09:10→22:00)
[2017-04-06] MEDS: PEPCID PO SCH ×2 (09:11→22:00)
--- NOTE | 2017-04-06 14:03 | Progress Note ---
Assessment and Plan Imp: 1. Hypoglycemia/hypothermia -> suspect due to too much insulin 2. Hypothyroidism; doubt myxedema coma with normal free T4 3. Acute respiratory failure, hypoxia 4. UTI/SIRS 5. Metabolic encephalopathy Rec: 1. GI/DVT PPx/TFs 2. Reviewed chart; ethics note 01/18/17 recommended AND and "hospice"; trying to get guardianship to sign necessary orders for this (however, I was told they are not willing to sign for withdrawal of ventilator); further care felt to be futile and would only prolong potential suffering without affecting ultimate outcome 3. Comfort care, no escalation of care; would not check any further labs; would not work him up for infections in setting of fever, only treat w/ Tylenol 4. Poor prognosis Unable to locate family. Subjective Date of service: 04/06/17 Principal diagnosis: Acute respiratory failure,encephalopathy Interval history: No events. On vent. Unresponsive. Active Medications Acetaminophen (Tylenol) 650 mg FEEDTUBE Q6H PRN PRN Reason: Non Cardiac Pain Or Temp>101 Last Admin: 04/06/17 08:59 Dose: 650 mg Lipase/Protease/Amylase (Pancreaze Dr 10,500 Unit) 1 each FEEDTUBE PRN PRN PRN Reason: For Clogged Feeding Tube Famotidine (Pepcid) 20 mg PO BID [facility] Last Admin: 04/06/17 09:11 Dose: 20 mg Heparin Sodium (Porcine) (Heparin) 5,000 unit SUB-Q Q12HR [facility] Last Admin: 04/06/17 09:10 Dose: 5,000 unit Hydrophilic Ointment (Vaseline Lip Therapy) 1 applic TP Q2HR PRN PRN Reason: Dry Lips Insulin Detemir (Levemir) 15 units SUB-Q DAILY [facility] Last Admin: 03/09/17 10:15 Dose: 15 units Insulin Human Regular (Novolin R) 0 units SUB-Q Q8HR [facility] PRN Reason: Protocol Last Admin: 04/06/17 06:31 Dose: Not Given Levothyroxine Sodium (Synthroid) 100 mcg PO DAILY@0600 [facility] Last Admin: 04/06/17 05:44 Dose: 100 mcg Multi-Ingred Cream/Lotion/Oil/Oint (Artificial Tears Ophth Oint) 1 applic OU Q4HR PRN PRN Reason: Dry Eye(s) Simple Syrup (Simple Syrup) 15 ml FEEDTUBE PRN PRN PRN Reason: Hypoglycemia Last Admin: 02/28/17 18:56 Dose: 15 ml Simple Syrup (Simple Syrup) 30 ml FEEDTUBE PRN PRN PRN Reason: Hypoglycemia Sodium Bicarbonate (Sodium Bicarbonate) 325 mg FEEDTUBE PRN PRN PRN Reason: For Clogged Feeding Tube Objective Vital Signs - 12hr 04/06/17 04/06/17 04/06/17 03:21 04:00 06:00 Temperature Pulse Rate 78 79 79 Pulse Rate [ From Monitor] Respiratory 19 18 Rate Blood Pressure 167/94 167/94 167/94 O2 Sat by Pulse 100 100 99 Oximetry 04/06/17 04/06/17 04/06/17 07:24 08:00 08:47 Temperature 101 F H Pulse Rate 79 84 Pulse Rate [ From Monitor] Respiratory Rate Blood Pressure 167/94 O2 Sat by Pulse 99 99 Oximetry 04/06/17 04/06/17 04/06/17 08:55 10:45 11:32 Temperature Pulse Rate 87 87 Pulse Rate [ 87 From Monitor] Respiratory 12 Rate Blood Pressure 167/94 O2 Sat by Pulse 100 100 Oximetry 04/06/17 12:00 Temperature 98.9 F Pulse Rate Pulse Rate [ From Monitor] Respiratory Rate Blood Pressure O2 Sat by Pulse Oximetry Constitutional: no acute distress, other Eyes: non-icteric ENT: oropharynx moist Neck: supple, no JVD Effort: normal Ascultation: Bilateral: clear Cardiovascular: regular rate and rhythm Gastrointestinal: normoactive bowel sounds, soft, non-tender, non-distended Integumentary: normal Extremities: no cyanosis, no edema, pink and warm Neurologic: pupils equal and round, other (minimal responsive,no posturing, otherwise no changes, not following any commands. ) Psychiatric: other (unable to obtain) CBC and BMP: 03/29/17 04:32 03/29/17 04:32 ABG, PT/INR, D-dimer: ABG POC ABG pH 7.442 (7.35-7.45) 01/31/17 18:55 ABG pH 7.420 pH Units (7.350-7.450) 01/17/17 04:35 POC ABG pCO2 32.8 (35-45) L 01/31/17 18:55 ABG pCO2 34.5 mm Hg 01/17/17 04:35 POC ABG pO2 82 (80-105) 01/31/17 18:55 ABG pO2 160.3 mm Hg (80.0-90.0) H 01/17/17 04:35 POC ABG HCO3 22.4 01/31/17 18:55 POC ABG Total CO2 23 01/31/17 18:55 POC ABG O2 Sat 97 01/31/17 18:55 ABG O2 Saturation 99.0 % (95.0-99.0) 01/17/17 04:35 PT/INR, D-dimer PT 14.1 Sec. (12.2-14.9) 01/17/17 04:10 INR 1.04 (0.87-1.13) 01/17/17 04:10 Abnormal lab findings: Abnormal Labs 01/09/17 01/09/17 01/09/17 10:16 10:16 10:16 WBC RBC Hgb 9.7 L Hct 28.4 L MCV 76 L MCH 26 L RDW 17.2 H Plt Count 448 H Lymph % (Auto) [place] % (Auto) Eos % (Auto) Seg Neutrophils % 79.5 H Seg Neuts % (Manual) Lymphocytes % (Manual) Seg Neutrophils # Seg Neutrophils # Man Lymphocytes # (Manual) APTT 39.6 H POC ABG pH ABG pH POC ABG pCO2 POC ABG pO2 ABG pO2 ABG HCO3 ABG Base Excess ABG Hemoglobin VBG pH Oxyhemoglobin Sodium 132 L Potassium Chloride 96.7 L Carbon Dioxide 21 L BUN 34 H Creatinine Glucose POC Glucose Lactic Acid Calcium 8.3 L AST ALT Alkaline Phosphatase 151 H CK-MB (CK-2) 7.1 H CK-MB (CK-2) Rel Index 5.2 H Total Protein Albumin 3.3 L TSH Urine WBC (Auto) Salicylates 01/09/17 01/09/17 01/09/17 10:16 10:16 10:16 WBC RBC Hgb Hct MCV MCH RDW Plt Count Lymph % (Auto) [place] % (Auto) Eos % (Auto) Seg Neutrophils % Seg Neuts % (Manual) Lymphocytes % (Manual) Seg Neutrophils # Seg Neutrophils # Man Lymphocytes # (Manual) APTT POC ABG pH ABG pH POC ABG pCO2 POC ABG pO2 ABG pO2 ABG HCO3 ABG Base Excess ABG Hemoglobin VBG pH 7.284 L Oxyhemoglobin Sodium Potassium Chloride Carbon Dioxide BUN Creatinine Glucose POC Glucose Lactic Acid Calcium AST ALT Alkaline Phosphatase CK-MB (CK-2) CK-MB (CK-2) Rel Index Total Protein Albumin TSH 52.800 H Urine WBC (Auto) Salicylates < 0.3 L 01/09/17 01/09/17 01/09/17 10:23 11:14 12:49 WBC RBC Hgb Hct MCV MCH RDW Plt Count Lymph % (Auto) [place] % (Auto) Eos % (Auto) Seg Neutrophils % Seg Neuts % (Manual) Lymphocytes % (Manual) Seg Neutrophils # Seg Neutrophils # Man Lymphocytes # (Manual) APTT POC ABG pH ABG pH POC ABG pCO2 POC ABG pO2 643 H ABG pO2 ABG HCO3 ABG Base Excess ABG Hemoglobin VBG pH Oxyhemoglobin Sodium Potassium Chloride Carbon Dioxide BUN Creatinine Glucose POC Glucose < 40 L Lactic Acid Calcium AST ALT Alkaline Phosphatase CK-MB (CK-2) CK-MB (CK-2) Rel Index Total Protein Albumin TSH Urine WBC (Auto) 61.0 H Salicylates 01/09/17 01/09/17 01/09/17 13:13 14:21 15:09 WBC RBC Hgb Hct MCV MCH RDW Plt Count Lymph % (Auto) [place] % (Auto) Eos % (Auto) Seg Neutrophils % Seg Neuts % (Manual) Lymphocytes % (Manual) Seg Neutrophils # Seg Neutrophils # Man Lymphocytes # (Manual) APTT POC ABG pH ABG pH POC ABG pCO2 POC ABG pO2 ABG pO2 ABG HCO3 ABG Base Excess ABG Hemoglobin VBG pH Oxyhemoglobin Sodium Potassium Chloride Carbon Dioxide BUN Creatinine Glucose POC Glucose 128 H 65 L 120 H Lactic Acid Calcium AST ALT Alkaline Phosphatase CK-MB (CK-2) CK-MB (CK-2) Rel Index Total Protein Albumin TSH Urine WBC (Auto) Salicylates 01/09/17 01/09/17 01/10/17 16:28 17:14 04:30 WBC 24.1 H RBC 3.38 L Hgb 8.5 L Hct 26.0 L MCV 77 L MCH 25 L RDW 17.9 H Plt Count 474 H Lymph % (Auto) [place] % (Auto) Eos % (Auto) Seg Neutrophils % Seg Neuts % (Manual) 88.0 H Lymphocytes % (Manual) 4.0 L Seg Neutrophils # Seg Neutrophils # Man 21.2 H Lymphocytes # (Manual) 1.0 L APTT POC ABG pH ABG pH POC ABG pCO2 POC ABG pO2 ABG pO2 ABG HCO3 ABG Base Excess ABG Hemoglobin VBG pH Oxyhemoglobin Sodium Potassium Chloride Carbon Dioxide BUN Creatinine Glucose POC Glucose 44 L 112 H Lactic Acid Calcium AST ALT Alkaline Phosphatase CK-MB (CK-2) CK-MB (CK-2) Rel Index Total Protein Albumin TSH Urine WBC (Auto) Salicylates 01/10/17 01/10/17 01/10/17 04:30 05:41 05:45 WBC RBC Hgb Hct MCV MCH RDW Plt Count Lymph % (Auto) [place] % (Auto) Eos % (Auto) Seg Neutrophils % Seg Neuts % (Manual) Lymphocytes % (Manual) Seg Neutrophils # Seg Neutrophils # Man Lymphocytes # (Manual) APTT POC ABG pH ABG pH POC ABG pCO2 26.6 L POC ABG pO2 207 H ABG pO2 ABG HCO3 ABG Base Excess ABG Hemoglobin VBG pH Oxyhemoglobin Sodium Potassium Chloride Carbon Dioxide 17 L BUN 27 H Creatinine Glucose POC Glucose 68 L Lactic Acid Calcium 7.5 L AST ALT Alkaline Phosphatase CK-MB (CK-2) CK-MB (CK-2) Rel Index Total Protein Albumin TSH Urine WBC (Auto) Salicylates 01/10/17 01/10/17 01/10/17 07:47 10:50 13:41 WBC RBC Hgb Hct MCV MCH RDW Plt Count Lymph % (Auto) [place] % (Auto) Eos % (Auto) Seg Neutrophils % Seg Neuts % (Manual) Lymphocytes % (Manual) Seg Neutrophils # Seg Neutrophils # Man Lymphocytes # (Manual) APTT POC ABG pH ABG pH POC ABG pCO2 POC ABG pO2 ABG pO2 ABG HCO3 ABG Base Excess ABG Hemoglobin VBG pH Oxyhemoglobin Sodium Potassium Chloride Carbon Dioxide BUN Creatinine Glucose POC Glucose 148 H 165 H 114 H Lactic Acid Calcium AST ALT Alkaline Phosphatase CK-MB (CK-2) CK-MB (CK-2) Rel Index Total Protein Albumin TSH Urine WBC (Auto) Salicylates 01/10/17 01/10/17 01/10/17 20:20 21:39 23:24 WBC RBC Hgb Hct MCV MCH RDW Plt Count Lymph % (Auto) [place] % (Auto) Eos % (Auto) Seg Neutrophils % Seg Neuts % (Manual) Lymphocytes % (Manual) Seg Neutrophils # Seg Neutrophils # Man Lymphocytes # (Manual) APTT POC ABG pH ABG pH POC ABG pCO2 POC ABG pO2 ABG pO2 ABG HCO3 ABG Base Excess ABG Hemoglobin VBG pH Oxyhemoglobin Sodium Potassium Chloride Carbon Dioxide BUN Creatinine Glucose POC Glucose 150 H 175 H 155 H Lactic Acid Calcium AST ALT Alkaline Phosphatase CK-MB (CK-2) CK-MB (CK-2) Rel Index Total Protein Albumin TSH Urine WBC (Auto) Salicylates 01/11/17 01/11/17 01/11/17 00:19 04:06 05:20 WBC 15.2 H RBC 3.40 L Hgb 8.9 L Hct 26.3 L MCV 78 L MCH 26 L RDW 18.6 H Plt Count 462 H Lymph % (Auto) 13.2 L [place] % (Auto) Eos % (Auto) Seg Neutrophils % 80.8 H Seg Neuts % (Manual) Lymphocytes % (Manual) Seg Neutrophils # 12.3 H Seg Neutrophils # Man Lymphocytes # (Manual) APTT POC ABG pH 7.463 H ABG pH POC ABG pCO2 26.2 L POC ABG pO2 185 H ABG pO2 ABG HCO3 ABG Base Excess ABG Hemoglobin VBG pH Oxyhemoglobin Sodium Potassium Chloride Carbon Dioxide BUN Creatinine Glucose POC Glucose 163 H Lactic Acid Calcium AST ALT Alkaline Phosphatase CK-MB (CK-2) CK-MB (CK-2) Rel Index Total Protein Albumin TSH Urine WBC (Auto) Salicylates 01/11/17 01/11/17 01/11/17 05:20 06:21 07:57 WBC RBC Hgb Hct MCV MCH RDW Plt Count Lymph % (Auto) [place] % (Auto) Eos % (Auto) Seg Neutrophils % Seg Neuts % (Manual) Lymphocytes % (Manual) Seg Neutrophils # Seg Neutrophils # Man Lymphocytes # (Manual) APTT POC ABG pH ABG pH POC ABG pCO2 POC ABG pO2 ABG pO2 ABG HCO3 ABG Base Excess ABG Hemoglobin VBG pH Oxyhemoglobin Sodium Potassium 3.4 L Chloride 111.5 H Carbon Dioxide 17 L BUN Creatinine Glucose 147 H POC Glucose 139 H 188 H Lactic Acid Calcium 8.0 L AST ALT Alkaline Phosphatase CK-MB (CK-2) CK-MB (CK-2) Rel Index Total Protein Albumin TSH Urine WBC (Auto) Salicylates 01/11/17 01/11/17 01/11/17 11:46 16:50 23:15 WBC RBC Hgb Hct MCV MCH RDW Plt Count Lymph % (Auto) [place] % (Auto) Eos % (Auto) Seg Neutrophils % Seg Neuts % (Manual) Lymphocytes % (Manual) Seg Neutrophils # Seg Neutrophils # Man Lymphocytes # (Manual) APTT POC ABG pH ABG pH POC ABG pCO2 POC ABG pO2 ABG pO2 ABG HCO3 ABG Base Excess ABG Hemoglobin VBG pH Oxyhemoglobin Sodium Potassium Chloride Carbon Dioxide BUN Creatinine Glucose POC Glucose 199 H 235 H 155 H Lactic Acid Calcium AST ALT Alkaline Phosphatase CK-MB (CK-2) CK-MB (CK-2) Rel Index Total Protein Albumin TSH Urine WBC (Auto) Salicylates 01/12/17 01/12/17 01/12/17 05:02 06:56 14:50 WBC RBC Hgb Hct MCV MCH RDW Plt Count Lymph % (Auto) [place] % (Auto) Eos % (Auto) Seg Neutrophils % Seg Neuts % (Manual) Lymphocytes % (Manual) Seg Neutrophils # Seg Neutrophils # Man Lymphocytes # (Manual) APTT POC ABG pH ABG pH POC ABG pCO2 28.0 L POC ABG pO2 178 H ABG pO2 ABG HCO3 ABG Base Excess ABG Hemoglobin VBG pH Oxyhemoglobin Sodium Potassium Chloride Carbon Dioxide BUN Creatinine Glucose POC Glucose 119 H 164 H Lactic Acid Calcium AST ALT Alkaline Phosphatase CK-MB (CK-2) CK-MB (CK-2) Rel Index Total Protein Albumin TSH Urine WBC (Auto) Salicylates 01/13/17 01/13/17 01/13/17 03:37 03:37 04:26 WBC RBC 3.61 L Hgb 9.3 L Hct 28.0 L MCV 78 L MCH 26 L RDW 18.2 H Plt Count Lymph % (Auto) [place] % (Auto) Eos % (Auto) Seg Neutrophils % Seg Neuts % (Manual) Lymphocytes % (Manual) Seg Neutrophils # Seg Neutrophils # Man Lymphocytes # (Manual) APTT POC ABG pH 7.485 H ABG pH POC ABG pCO2 25.4 L POC ABG pO2 73 L ABG pO2 ABG HCO3 ABG Base Excess ABG Hemoglobin VBG pH Oxyhemoglobin Sodium Potassium Chloride 112.4 H Carbon Dioxide 19 L BUN Creatinine Glucose 118 H POC Glucose Lactic Acid Calcium 8.0 L AST ALT Alkaline Phosphatase CK-MB (CK-2) CK-MB (CK-2) Rel Index Total Protein Albumin TSH Urine WBC (Auto) Salicylates 01/13/17 01/13/17 01/13/17 06:15 11:50 17:31 WBC RBC Hgb Hct MCV MCH RDW Plt Count Lymph % (Auto) [place] % (Auto) Eos % (Auto) Seg Neutrophils % Seg Neuts % (Manual) Lymphocytes % (Manual) Seg Neutrophils # Seg Neutrophils # Man Lymphocytes # (Manual) APTT POC ABG pH ABG pH POC ABG pCO2 POC ABG pO2 ABG pO2 ABG HCO3 ABG Base Excess ABG Hemoglobin VBG pH Oxyhemoglobin Sodium Potassium Chloride Carbon Dioxide BUN Creatinine Glucose POC Glucose 116 H 171 H 203 H Lactic Acid Calcium AST ALT Alkaline Phosphatase CK-MB (CK-2) CK-MB (CK-2) Rel Index Total Protein Albumin TSH Urine WBC (Auto) Salicylates 01/14/17 01/14/17 01/14/17 00:02 04:50 04:50 WBC RBC 3.32 L Hgb 8.5 L Hct 26.1 L MCV 79 L MCH 26 L RDW 18.2 H Plt Count Lymph % (Auto) [place] % (Auto) 9.0 H Eos % (Auto) Seg Neutrophils % Seg Neuts % (Manual) Lymphocytes % (Manual) Seg Neutrophils # Seg Neutrophils # Man Lymphocytes # (Manual) APTT POC ABG pH ABG pH POC ABG pCO2 POC ABG pO2 ABG pO2 ABG HCO3 ABG Base Excess ABG Hemoglobin VBG pH Oxyhemoglobin Sodium Potassium Chloride 112.5 H Carbon Dioxide BUN Creatinine Glucose 149 H POC Glucose 157 H Lactic Acid Calcium 8.1 L AST ALT Alkaline Phosphatase CK-MB (CK-2) CK-MB (CK-2) Rel Index Total Protein Albumin TSH Urine WBC (Auto) Salicylates 01/14/17 01/14/17 01/14/17 05:10 11:27 14:07 WBC RBC Hgb Hct MCV MCH RDW Plt Count Lymph % (Auto) [place] % (Auto) Eos % (Auto) Seg Neutrophils % Seg Neuts % (Manual) Lymphocytes % (Manual) Seg Neutrophils # Seg Neutrophils # Man Lymphocytes # (Manual) APTT POC ABG pH ABG pH POC ABG pCO2 POC ABG pO2 ABG pO2 ABG HCO3 ABG Base Excess ABG Hemoglobin VBG pH Oxyhemoglobin Sodium Potassium Chloride Carbon Dioxide BUN Creatinine Glucose POC Glucose 176 H 147 H Lactic Acid Calcium AST ALT Alkaline Phosphatase CK-MB (CK-2) CK-MB (CK-2) Rel Index Total Protein Albumin TSH Urine WBC (Auto) 53.0 H Salicylates 01/14/17 01/15/17 01/15/17 16:52 00:04 05:26 WBC RBC Hgb Hct MCV MCH RDW Plt Count Lymph % (Auto) [place] % (Auto) Eos % (Auto) Seg Neutrophils % Seg Neuts % (Manual) Lymphocytes % (Manual) Seg Neutrophils # Seg Neutrophils # Man Lymphocytes # (Manual) APTT POC ABG pH ABG pH POC ABG pCO2 POC ABG pO2 ABG pO2 ABG HCO3 ABG Base Excess ABG Hemoglobin VBG pH Oxyhemoglobin Sodium Potassium Chloride Carbon Dioxide BUN Creatinine Glucose POC Glucose 131 H 193 H 215 H Lactic Acid Calcium AST ALT Alkaline Phosphatase CK-MB (CK-2) CK-MB (CK-2) Rel Index Total Protein Albumin TSH Urine WBC (Auto) Salicylates 01/15/17 01/15/17 01/15/17 11:49 17:47 21:33 WBC RBC Hgb Hct MCV MCH RDW Plt Count Lymph % (Auto) [place] % (Auto) Eos % (Auto) Seg Neutrophils % Seg Neuts % (Manual) Lymphocytes % (Manual) Seg Neutrophils # Seg Neutrophils # Man Lymphocytes # (Manual) APTT POC ABG pH ABG pH POC ABG pCO2 POC ABG pO2 ABG pO2 ABG HCO3 ABG Base Excess ABG Hemoglobin VBG pH Oxyhemoglobin Sodium Potassium Chloride Carbon Dioxide BUN Creatinine Glucose POC Glucose 121 H 211 H 275 H Lactic Acid Calcium AST ALT Alkaline Phosphatase CK-MB (CK-2) CK-MB (CK-2) Rel Index Total Protein Albumin TSH Urine WBC (Auto) Salicylates 01/16/17 01/16/17 01/16/17 04:30 05:28 13:45 WBC RBC Hgb Hct MCV MCH RDW Plt Count Lymph % (Auto) [place] % (Auto) Eos % (Auto) Seg Neutrophils % Seg Neuts % (Manual) Lymphocytes % (Manual) Seg Neutrophils # Seg Neutrophils # Man Lymphocytes # (Manual) APTT POC ABG pH ABG pH 7.457 H POC ABG pCO2 POC ABG pO2 ABG pO2 55.1 L ABG HCO3 19.4 L ABG Base Excess -4.0 L ABG Hemoglobin 6.8 L VBG pH Oxyhemoglobin 94.9 L Sodium Potassium Chloride Carbon Dioxide BUN Creatinine Glucose POC Glucose 271 H 236 H Lactic Acid Calcium AST ALT Alkaline Phosphatase CK-MB (CK-2) CK-MB (CK-2) Rel Index Total Protein Albumin TSH Urine WBC (Auto) Salicylates 01/16/17 01/17/17 01/17/17 21:39 04:10 04:10 WBC 4.4 L RBC 2.98 L Hgb 7.7 L Hct 23.3 L MCV 78 L MCH 26 L RDW 18.1 H Plt Count Lymph % (Auto) [place] % (Auto) Eos % (Auto) Seg Neutrophils % Seg Neuts % (Manual) Lymphocytes % (Manual) Seg Neutrophils # Seg Neutrophils # Man Lymphocytes # (Manual) APTT POC ABG pH ABG pH POC ABG pCO2 POC ABG pO2 ABG pO2 ABG HCO3 ABG Base Excess ABG Hemoglobin VBG pH Oxyhemoglobin Sodium Potassium 3.3 L Chloride 108.7 H Carbon Dioxide 20 L BUN 8 L Creatinine Glucose 202 H POC Glucose 258 H Lactic Acid Calcium 7.6 L AST ALT Alkaline Phosphatase CK-MB (CK-2) CK-MB (CK-2) Rel Index Total Protein Albumin TSH Urine WBC (Auto) Salicylates 01/17/17 01/17/17 01/17/17 04:35 12:23 16:01 WBC RBC Hgb Hct MCV MCH RDW Plt Count Lymph % (Auto) [place] % (Auto) Eos % (Auto) Seg Neutrophils % Seg Neuts % (Manual) Lymphocytes % (Manual) Seg Neutrophils # Seg Neutrophils # Man Lymphocytes # (Manual) APTT POC ABG pH ABG pH POC ABG pCO2 POC ABG pO2 ABG pO2 160.3 H ABG HCO3 ABG Base Excess -2.3 L ABG Hemoglobin 7.9 L VBG pH Oxyhemoglobin Sodium Potassium Chloride Carbon Dioxide BUN Creatinine Glucose POC Glucose 321 H 239 H Lactic Acid Calcium AST ALT Alkaline Phosphatase CK-MB (CK-2) CK-MB (CK-2) Rel Index Total Protein Albumin TSH Urine WBC (Auto) Salicylates 01/18/17 01/18/17 01/18/17 05:07 12:09 17:54 WBC RBC Hgb Hct MCV MCH RDW Plt Count Lymph % (Auto) [place] % (Auto) Eos % (Auto) Seg Neutrophils % Seg Neuts % (Manual) Lymphocytes % (Manual) Seg Neutrophils # Seg Neutrophils # Man Lymphocytes # (Manual) APTT POC ABG pH ABG pH POC ABG pCO2 POC ABG pO2 ABG pO2 ABG HCO3 ABG Base Excess ABG Hemoglobin VBG pH Oxyhemoglobin Sodium Potassium Chloride Carbon Dioxide BUN Creatinine Glucose POC Glucose 155 H 203 H 132 H Lactic Acid Calcium AST ALT Alkaline Phosphatase CK-MB (CK-2) CK-MB (CK-2) Rel Index Total Protein Albumin TSH Urine WBC (Auto) Salicylates 01/18/17 01/19/17 01/19/17 23:43 04:28 12:11 WBC RBC Hgb Hct MCV MCH RDW Plt Count Lymph % (Auto) [place] % (Auto) Eos % (Auto) Seg Neutrophils % Seg Neuts % (Manual) Lymphocytes % (Manual) Seg Neutrophils # Seg Neutrophils # Man Lymphocytes # (Manual) APTT POC ABG pH ABG pH POC ABG pCO2 POC ABG pO2 ABG pO2 ABG HCO3 ABG Base Excess ABG Hemoglobin VBG pH Oxyhemoglobin Sodium Potassium Chloride Carbon Dioxide BUN Creatinine Glucose POC Glucose 125 H 182 H 153 H Lactic Acid Calcium AST ALT Alkaline Phosphatase CK-MB (CK-2) CK-MB (CK-2) Rel Index Total Protein Albumin TSH Urine WBC (Auto) Salicylates 01/19/17 01/20/17 01/20/17 17:23 00:12 05:44 WBC RBC Hgb Hct MCV MCH RDW Plt Count Lymph % (Auto) [place] % (Auto) Eos % (Auto) Seg Neutrophils % Seg Neuts % (Manual) Lymphocytes % (Manual) Seg Neutrophils # Seg Neutrophils # Man Lymphocytes # (Manual) APTT POC ABG pH ABG pH POC ABG pCO2 POC ABG pO2 ABG pO2 ABG HCO3 ABG Base Excess ABG Hemoglobin VBG pH Oxyhemoglobin Sodium Potassium Chloride Carbon Dioxide BUN Creatinine Glucose POC Glucose 66 L 139 H 176 H Lactic Acid Calcium AST ALT Alkaline Phosphatase CK-MB (CK-2) CK-MB (CK-2) Rel Index Total Protein Albumin TSH Urine WBC (Auto) Salicylates 01/20/17 01/20/17 01/20/17 11:48 17:42 23:43 WBC RBC Hgb Hct MCV MCH RDW Plt Count Lymph % (Auto) [place] % (Auto) Eos % (Auto) Seg Neutrophils % Seg Neuts % (Manual) Lymphocytes % (Manual) Seg Neutrophils # Seg Neutrophils # Man Lymphocytes # (Manual) APTT POC ABG pH ABG pH POC ABG pCO2 POC ABG pO2 ABG pO2 ABG HCO3 ABG Base Excess ABG Hemoglobin VBG pH Oxyhemoglobin Sodium Potassium Chloride Carbon Dioxide BUN Creatinine Glucose POC Glucose 218 H 132 H 178 H Lactic Acid Calcium AST ALT Alkaline Phosphatase CK-MB (CK-2) CK-MB (CK-2) Rel Index Total Protein Albumin TSH Urine WBC (Auto) Salicylates 01/21/17 01/21/17 01/21/17 05:34 11:17 23:37 WBC RBC Hgb Hct MCV MCH RDW Plt Count Lymph % (Auto) [place] % (Auto) Eos % (Auto) Seg Neutrophils % Seg Neuts % (Manual) Lymphocytes % (Manual) Seg Neutrophils # Seg Neutrophils # Man Lymphocytes # (Manual) APTT POC ABG pH ABG pH POC ABG pCO2 POC ABG pO2 ABG pO2 ABG HCO3 ABG Base Excess ABG Hemoglobin VBG pH Oxyhemoglobin Sodium Potassium Chloride Carbon Dioxide BUN Creatinine Glucose POC Glucose 106 H 213 H 140 H Lactic Acid Calcium AST ALT Alkaline Phosphatase CK-MB (CK-2) CK-MB (CK-2) Rel Index Total Protein Albumin TSH Urine WBC (Auto) Salicylates 01/22/17 01/22/17 01/22/17 04:00 04:00 04:58 WBC RBC 3.26 L Hgb 8.3 L Hct 25.5 L MCV 78 L MCH 25 L RDW 17.9 H Plt Count Lymph % (Auto) [place] % (Auto) 7.9 H Eos % (Auto) 6.2 H Seg Neutrophils % Seg Neuts % (Manual) Lymphocytes % (Manual) Seg Neutrophils # Seg Neutrophils # Man Lymphocytes # (Manual) APTT POC ABG pH ABG pH POC ABG pCO2 POC ABG pO2 ABG pO2 ABG HCO3 ABG Base Excess ABG Hemoglobin VBG pH Oxyhemoglobin Sodium Potassium Chloride 95.5 L Carbon Dioxide 31 H D BUN Creatinine Glucose 134 H POC Glucose 146 H Lactic Acid Calcium AST 44 H ALT Alkaline Phosphatase 379 H CK-MB (CK-2) CK-MB (CK-2) Rel Index Total Protein Albumin 2.7 L TSH Urine WBC (Auto) Salicylates 01/22/17 01/22/17 01/22/17 12:12 18:12 23:39 WBC RBC Hgb Hct MCV MCH RDW Plt Count Lymph % (Auto) [place] % (Auto) Eos % (Auto) Seg Neutrophils % Seg Neuts % (Manual) Lymphocytes % (Manual) Seg Neutrophils # Seg Neutrophils # Man Lymphocytes # (Manual) APTT POC ABG pH ABG pH POC ABG pCO2 POC ABG pO2 ABG pO2 ABG HCO3 ABG Base Excess ABG Hemoglobin VBG pH Oxyhemoglobin Sodium Potassium Chloride Carbon Dioxide BUN Creatinine Glucose POC Glucose 255 H 182 H 134 H Lactic Acid Calcium AST ALT Alkaline Phosphatase CK-MB (CK-2) CK-MB (CK-2) Rel Index Total Protein Albumin TSH Urine WBC (Auto) Salicylates 01/23/17 01/23/17 01/23/17 04:43 12:12 17:36 WBC RBC Hgb Hct MCV MCH RDW Plt Count Lymph % (Auto) [place] % (Auto) Eos % (Auto) Seg Neutrophils % Seg Neuts % (Manual) Lymphocytes % (Manual) Seg Neutrophils # Seg Neutrophils # Man Lymphocytes # (Manual) APTT POC ABG pH ABG pH POC ABG pCO2 POC ABG pO2 ABG pO2 ABG HCO3 ABG Base Excess ABG Hemoglobin VBG pH Oxyhemoglobin Sodium Potassium Chloride Carbon Dioxide BUN Creatinine Glucose POC Glucose 218 H 128 H 156 H Lactic Acid Calcium AST ALT Alkaline Phosphatase CK-MB (CK-2) CK-MB (CK-2) Rel Index Total Protein Albumin TSH Urine WBC (Auto) Salicylates 01/24/17 01/24/17 01/24/17 00:08 05:16 11:40 WBC RBC Hgb Hct MCV MCH RDW Plt Count Lymph % (Auto) [place] % (Auto) Eos % (Auto) Seg Neutrophils % Seg Neuts % (Manual) Lymphocytes % (Manual) Seg Neutrophils # Seg Neutrophils # Man Lymphocytes # (Manual) APTT POC ABG pH ABG pH POC ABG pCO2 POC ABG pO2 ABG pO2 ABG HCO3 ABG Base Excess ABG Hemoglobin VBG pH Oxyhemoglobin Sodium Potassium Chloride Carbon Dioxide BUN Creatinine Glucose POC Glucose 129 H 169 H 187 H Lactic Acid Calcium AST ALT Alkaline Phosphatase CK-MB (CK-2) CK-MB (CK-2) Rel Index Total Protein Albumin TSH Urine WBC (Auto) Salicylates 01/24/17 01/24/17 01/25/17 17:43 23:23 04:56 WBC RBC Hgb Hct MCV MCH RDW Plt Count Lymph % (Auto) [place] % (Auto) Eos % (Auto) Seg Neutrophils % Seg Neuts % (Manual) Lymphocytes % (Manual) Seg Neutrophils # Seg Neutrophils # Man Lymphocytes # (Manual) APTT POC ABG pH ABG pH POC ABG pCO2 POC ABG pO2 ABG pO2 ABG HCO3 ABG Base Excess ABG Hemoglobin VBG pH Oxyhemoglobin Sodium Potassium Chloride Carbon Dioxide BUN Creatinine Glucose POC Glucose 215 H 222 H 210 H Lactic Acid Calcium AST ALT Alkaline Phosphatase CK-MB (CK-2) CK-MB (CK-2) Rel Index Total Protein Albumin TSH Urine WBC (Auto) Salicylates 01/25/17 01/25/17 01/26/17 11:52 17:37 00:02 WBC RBC Hgb Hct MCV MCH RDW Plt Count Lymph % (Auto) [place] % (Auto) Eos % (Auto) Seg Neutrophils % Seg Neuts % (Manual) Lymphocytes % (Manual) Seg Neutrophils # Seg Neutrophils # Man Lymphocytes # (Manual) APTT POC ABG pH ABG pH POC ABG pCO2 POC ABG pO2 ABG pO2 ABG HCO3 ABG Base Excess ABG Hemoglobin VBG pH Oxyhemoglobin Sodium Potassium Chloride Carbon Dioxide BUN Creatinine Glucose POC Glucose 284 H 218 H 192 H Lactic Acid Calcium AST ALT Alkaline Phosphatase CK-MB (CK-2) CK-MB (CK-2) Rel Index Total Protein Albumin TSH Urine WBC (Auto) Salicylates 01/26/17 01/26/17 01/26/17 05:33 12:17 17:50 WBC RBC Hgb Hct MCV MCH RDW Plt Count Lymph % (Auto) [place] % (Auto) Eos % (Auto) Seg Neutrophils % Seg Neuts % (Manual) Lymphocytes % (Manual) Seg Neutrophils # Seg Neutrophils # Man Lymphocytes # (Manual) APTT POC ABG pH ABG pH POC ABG pCO2 POC ABG pO2 ABG pO2 ABG HCO3 ABG Base Excess ABG Hemoglobin VBG pH Oxyhemoglobin Sodium Potassium Chloride Carbon Dioxide BUN Creatinine Glucose POC Glucose 199 H 227 H 229 H Lactic Acid Calcium AST ALT Alkaline Phosphatase CK-MB (CK-2) CK-MB (CK-2) Rel Index Total Protein Albumin TSH Urine WBC (Auto) Salicylates 01/26/17 01/27/17 01/27/17 23:57 05:31 11:42 WBC RBC Hgb Hct MCV MCH RDW Plt Count Lymph % (Auto) [place] % (Auto) Eos % (Auto) Seg Neutrophils % Seg Neuts % (Manual) Lymphocytes % (Manual) Seg Neutrophils # Seg Neutrophils # Man Lymphocytes # (Manual) APTT POC ABG pH ABG pH POC ABG pCO2 POC ABG pO2 ABG pO2 ABG HCO3 ABG Base Excess ABG Hemoglobin VBG pH Oxyhemoglobin Sodium Potassium Chloride Carbon Dioxide BUN Creatinine Glucose POC Glucose 186 H 285 H 260 H Lactic Acid Calcium AST ALT Alkaline Phosphatase CK-MB (CK-2) CK-MB (CK-2) Rel Index Total Protein Albumin TSH Urine WBC (Auto) Salicylates 01/27/17 01/27/17 01/27/17 17:47 23:58 Unknown WBC 12.1 H RBC 3.28 L Hgb 8.5 L Hct 25.5 L MCV 78 L MCH 26 L RDW 16.8 H Plt Count 601 H Lymph % (Auto) [place] % (Auto) Eos % (Auto) Seg Neutrophils % Seg Neuts % (Manual) Lymphocytes % (Manual) Seg Neutrophils # Seg Neutrophils # Man Lymphocytes # (Manual) APTT POC ABG pH ABG pH POC ABG pCO2 POC ABG pO2 ABG pO2 ABG HCO3 ABG Base Excess ABG Hemoglobin VBG pH Oxyhemoglobin Sodium Potassium Chloride Carbon Dioxide BUN Creatinine Glucose POC Glucose 329 H 225 H Lactic Acid Calcium AST ALT Alkaline Phosphatase CK-MB (CK-2) CK-MB (CK-2) Rel Index Total Protein Albumin TSH Urine WBC (Auto) Salicylates 01/27/17 01/28/17 01/28/17 Unknown 03:44 03:44 WBC RBC 3.14 L Hgb 8.2 L Hct 24.1 L MCV 77 L MCH 26 L RDW 16.9 H Plt Count 567 H Lymph % (Auto) [place] % (Auto) Eos % (Auto) Seg Neutrophils % Seg Neuts % (Manual) Lymphocytes % (Manual) Seg Neutrophils # Seg Neutrophils # Man Lymphocytes # (Manual) APTT POC ABG pH ABG pH POC ABG pCO2 POC ABG pO2 ABG pO2 ABG HCO3 ABG Base Excess ABG Hemoglobin VBG pH Oxyhemoglobin Sodium 128 L Potassium 5.4 H Chloride 87.5 L Carbon Dioxide BUN 44 H 42 H Creatinine Glucose 250 H 128 H POC Glucose Lactic Acid Calcium AST ALT Alkaline Phosphatase CK-MB (CK-2) CK-MB (CK-2) Rel Index Total Protein Albumin TSH Urine WBC (Auto) Salicylates 01/28/17 01/28/17 01/28/17 11:43 16:47 17:52 WBC RBC Hgb Hct MCV MCH RDW Plt Count Lymph % (Auto) [place] % (Auto) Eos % (Auto) Seg Neutrophils % Seg Neuts % (Manual) Lymphocytes % (Manual) Seg Neutrophils # Seg Neutrophils # Man Lymphocytes # (Manual) APTT POC ABG pH ABG pH POC ABG pCO2 POC ABG pO2 ABG pO2 ABG HCO3 ABG Base Excess ABG Hemoglobin VBG pH Oxyhemoglobin Sodium Potassium Chloride Carbon Dioxide BUN Creatinine Glucose POC Glucose 351 H 249 H Lactic Acid Calcium AST ALT Alkaline Phosphatase CK-MB (CK-2) CK-MB (CK-2) Rel Index Total Protein Albumin TSH Urine WBC (Auto) > 182.0 H Salicylates 01/29/17 01/29/17 01/29/17 05:25 05:25 09:32 WBC 13.6 H RBC 3.25 L Hgb 8.3 L Hct 25.1 L MCV 77 L MCH 26 L RDW 16.8 H Plt Count 514 H Lymph % (Auto) [place] % (Auto) Eos % (Auto) Seg Neutrophils % Seg Neuts % (Manual) Lymphocytes % (Manual) Seg Neutrophils # Seg Neutrophils # Man Lymphocytes # (Manual) APTT POC ABG pH ABG pH POC ABG pCO2 POC ABG pO2 ABG pO2 ABG HCO3 ABG Base Excess ABG Hemoglobin VBG pH Oxyhemoglobin Sodium Potassium Chloride 97.8 L Carbon Dioxide BUN 34 H Creatinine Glucose 222 H POC Glucose Lactic Acid 2.50 H* Calcium AST ALT Alkaline Phosphatase CK-MB (CK-2) CK-MB (CK-2) Rel Index Total Protein Albumin TSH Urine WBC (Auto) Salicylates 01/29/17 01/29/17 01/29/17 11:56 18:11 23:55 WBC RBC Hgb Hct MCV MCH RDW Plt Count Lymph % (Auto) [place] % (Auto) Eos % (Auto) Seg Neutrophils % Seg Neuts % (Manual) Lymphocytes % (Manual) Seg Neutrophils # Seg Neutrophils # Man Lymphocytes # (Manual) APTT POC ABG pH ABG pH POC ABG pCO2 POC ABG pO2 ABG pO2 ABG HCO3 ABG Base Excess ABG Hemoglobin VBG pH Oxyhemoglobin Sodium Potassium Chloride Carbon Dioxide BUN Creatinine Glucose POC Glucose 261 H 215 H 176 H Lactic Acid Calcium AST ALT Alkaline Phosphatase CK-MB (CK-2) CK-MB (CK-2) Rel Index Total Protein Albumin TSH Urine WBC (Auto) Salicylates 01/30/17 01/30/17 01/30/17 05:31 05:31 05:34 WBC 15.2 H RBC 3.09 L Hgb 7.9 L Hct 23.9 L MCV 77 L MCH 26 L RDW 16.9 H Plt Count 569 H Lymph % (Auto) [place] % (Auto) Eos % (Auto) Seg Neutrophils % Seg Neuts % (Manual) Lymphocytes % (Manual) Seg Neutrophils # Seg Neutrophils # Man Lymphocytes # (Manual) APTT POC ABG pH ABG pH POC ABG pCO2 POC ABG pO2 ABG pO2 ABG HCO3 ABG Base Excess ABG Hemoglobin VBG pH Oxyhemoglobin Sodium Potassium Chloride Carbon Dioxide BUN 24 H Creatinine Glucose 235 H POC Glucose 243 H Lactic Acid Calcium AST ALT Alkaline Phosphatase CK-MB (CK-2) CK-MB (CK-2) Rel Index Total Protein Albumin TSH Urine WBC (Auto) Salicylates 01/30/17 01/30/17 01/30/17 11:38 17:58 23:29 WBC RBC Hgb Hct MCV MCH RDW Plt Count Lymph % (Auto) [place] % (Auto) Eos % (Auto) Seg Neutrophils % Seg Neuts % (Manual) Lymphocytes % (Manual) Seg Neutrophils # Seg Neutrophils # Man Lymphocytes # (Manual) APTT POC ABG pH ABG pH POC ABG pCO2 POC ABG pO2 ABG pO2 ABG HCO3 ABG Base Excess ABG Hemoglobin VBG pH Oxyhemoglobin Sodium Potassium Chloride Carbon Dioxide BUN Creatinine Glucose POC Glucose 298 H 208 H 245 H Lactic Acid Calcium AST ALT Alkaline Phosphatase CK-MB (CK-2) CK-MB (CK-2) Rel Index Total Protein Albumin TSH Urine WBC (Auto) Salicylates 01/31/17 01/31/17 01/31/17 04:39 04:39 05:57 WBC 11.4 H RBC 3.22 L Hgb 8.2 L Hct 24.9 L MCV 78 L MCH 25 L RDW 17.2 H Plt Count 576 H Lymph % (Auto) [place] % (Auto) Eos % (Auto) Seg Neutrophils % Seg Neuts % (Manual) Lymphocytes % (Manual) Seg Neutrophils # Seg Neutrophils # Man Lymphocytes # (Manual) APTT POC ABG pH ABG pH POC ABG pCO2 POC ABG pO2 ABG pO2 ABG HCO3 ABG Base Excess ABG Hemoglobin VBG pH Oxyhemoglobin Sodium Potassium Chloride Carbon Dioxide BUN Creatinine 0.7 L Glucose 223 H POC Glucose 264 H Lactic Acid Calcium AST ALT Alkaline Phosphatase CK-MB (CK-2) CK-MB (CK-2) Rel Index Total Protein Albumin TSH Urine WBC (Auto) Salicylates 01/31/17 01/31/17 01/31/17 12:23 17:41 18:55 WBC RBC Hgb Hct MCV MCH RDW Plt Count Lymph % (Auto) [place] % (Auto) Eos % (Auto) Seg Neutrophils % Seg Neuts % (Manual) Lymphocytes % (Manual) Seg Neutrophils # Seg Neutrophils # Man Lymphocytes # (Manual) APTT POC ABG pH ABG pH POC ABG pCO2 32.8 L POC ABG pO2 ABG pO2 ABG HCO3 ABG Base Excess ABG Hemoglobin VBG pH Oxyhemoglobin Sodium Potassium Chloride Carbon Dioxide BUN Creatinine Glucose POC Glucose 252 H 208 H Lactic Acid Calcium AST ALT Alkaline Phosphatase CK-MB (CK-2) CK-MB (CK-2) Rel Index Total Protein Albumin TSH Urine WBC (Auto) Salicylates 01/31/17 02/01/17 02/01/17 22:59 03:38 03:38 WBC RBC 2.81 L Hgb 7.4 L Hct 22.1 L MCV 79 L MCH 27 L RDW 17.0 H Plt Count 540 H Lymph % (Auto) [place] % (Auto) Eos % (Auto) Seg Neutrophils % Seg Neuts % (Manual) Lymphocytes % (Manual) Seg Neutrophils # Seg Neutrophils # Man Lymphocytes # (Manual) APTT POC ABG pH ABG pH POC ABG pCO2 POC ABG pO2 ABG pO2 ABG HCO3 ABG Base Excess ABG Hemoglobin VBG pH Oxyhemoglobin Sodium Potassium Chloride Carbon Dioxide 21 L BUN Creatinine 0.7 L Glucose POC Glucose 40 L Lactic Acid Calcium AST ALT Alkaline Phosphatase CK-MB (CK-2) CK-MB (CK-2) Rel Index Total Protein Albumin TSH Urine WBC (Auto) Salicylates 02/01/17 02/01/17 02/01/17 05:17 12:19 16:44 WBC RBC Hgb Hct MCV MCH RDW Plt Count Lymph % (Auto) [place] % (Auto) Eos % (Auto) Seg Neutrophils % Seg Neuts % (Manual) Lymphocytes % (Manual) Seg Neutrophils # Seg Neutrophils # Man Lymphocytes # (Manual) APTT POC ABG pH ABG pH POC ABG pCO2 POC ABG pO2 ABG pO2 ABG HCO3 ABG Base Excess ABG Hemoglobin VBG pH Oxyhemoglobin Sodium Potassium Chloride Carbon Dioxide BUN Creatinine Glucose POC Glucose 140 H 213 H 172 H Lactic Acid Calcium AST ALT Alkaline Phosphatase CK-MB (CK-2) CK-MB (CK-2) Rel Index Total Protein Albumin TSH Urine WBC (Auto) Salicylates 02/01/17 02/02/17 02/02/17 23:59 05:14 11:24 WBC RBC Hgb Hct MCV MCH RDW Plt Count Lymph % (Auto) [place] % (Auto) Eos % (Auto) Seg Neutrophils % Seg Neuts % (Manual) Lymphocytes % (Manual) Seg Neutrophils # Seg Neutrophils # Man Lymphocytes # (Manual) APTT POC ABG pH ABG pH POC ABG pCO2 POC ABG pO2 ABG pO2 ABG HCO3 ABG Base Excess ABG Hemoglobin VBG pH Oxyhemoglobin Sodium Potassium Chloride Carbon Dioxide BUN Creatinine Glucose POC Glucose 181 H 194 H 209 H Lactic Acid Calcium AST ALT Alkaline Phosphatase CK-MB (CK-2) CK-MB (CK-2) Rel Index Total Protein Albumin TSH Urine WBC (Auto) Salicylates 02/02/17 02/02/17 02/02/17 11:46 11:46 17:47 WBC RBC 2.94 L Hgb 7.5 L Hct 23.0 L MCV 78 L MCH 25 L RDW 16.9 H Plt Count 520 H Lymph % (Auto) [place] % (Auto) Eos % (Auto) Seg Neutrophils % Seg Neuts % (Manual) Lymphocytes % (Manual) Seg Neutrophils # Seg Neutrophils # Man Lymphocytes # (Manual) APTT POC ABG pH ABG pH POC ABG pCO2 POC ABG pO2 ABG pO2 ABG HCO3 ABG Base Excess ABG Hemoglobin VBG pH Oxyhemoglobin Sodium Potassium Chloride Carbon Dioxide BUN Creatinine 0.6 L Glucose 189 H POC Glucose 147 H Lactic Acid Calcium 8.1 L AST ALT Alkaline Phosphatase CK-MB (CK-2) CK-MB (CK-2) Rel Index Total Protein Albumin TSH Urine WBC (Auto) Salicylates 02/02/17 02/03/17 02/03/17 23:32 05:53 11:19 WBC RBC Hgb Hct MCV MCH RDW Plt Count Lymph % (Auto) [place] % (Auto) Eos % (Auto) Seg Neutrophils % Seg Neuts % (Manual) Lymphocytes % (Manual) Seg Neutrophils # Seg Neutrophils # Man Lymphocytes # (Manual) APTT POC ABG pH ABG pH POC ABG pCO2 POC ABG pO2 ABG pO2 ABG HCO3 ABG Base Excess ABG Hemoglobin VBG pH Oxyhemoglobin Sodium Potassium Chloride Carbon Dioxide BUN Creatinine Glucose POC Glucose 176 H 224 H 228 H Lactic Acid Calcium AST ALT Alkaline Phosphatase CK-MB (CK-2) CK-MB (CK-2) Rel Index Total Protein Albumin TSH Urine WBC (Auto) Salicylates 02/03/17 02/03/17 02/04/17 16:59 23:38 05:45 WBC RBC Hgb Hct MCV MCH RDW Plt Count Lymph % (Auto) [place] % (Auto) Eos % (Auto) Seg Neutrophils % Seg Neuts % (Manual) Lymphocytes % (Manual) Seg Neutrophils # Seg Neutrophils # Man Lymphocytes # (Manual) APTT POC ABG pH ABG pH POC ABG pCO2 POC ABG pO2 ABG pO2 ABG HCO3 ABG Base Excess ABG Hemoglobin VBG pH Oxyhemoglobin Sodium Potassium Chloride Carbon Dioxide BUN Creatinine Glucose POC Glucose 189 H 191 H 251 H Lactic Acid Calcium AST ALT Alkaline Phosphatase CK-MB (CK-2) CK-MB (CK-2) Rel Index Total Protein Albumin TSH Urine WBC (Auto) Salicylates 02/04/17 02/04/17 02/05/17 11:20 17:20 00:17 WBC RBC Hgb Hct MCV MCH RDW Plt Count Lymph % (Auto) [place] % (Auto) Eos % (Auto) Seg Neutrophils % Seg Neuts % (Manual) Lymphocytes % (Manual) Seg Neutrophils # Seg Neutrophils # Man Lymphocytes # (Manual) APTT POC ABG pH ABG pH POC ABG pCO2 POC ABG pO2 ABG pO2 ABG HCO3 ABG Base Excess ABG Hemoglobin VBG pH Oxyhemoglobin Sodium Potassium Chloride Carbon Dioxide BUN Creatinine Glucose POC Glucose 243 H 163 H 200 H Lactic Acid Calcium AST ALT Alkaline Phosphatase CK-MB (CK-2) CK-MB (CK-2) Rel Index Total Protein Albumin TSH Urine WBC (Auto) Salicylates 02/05/17 02/05/17 02/05/17 05:38 12:38 16:29 WBC RBC Hgb Hct MCV MCH RDW Plt Count Lymph % (Auto) [place] % (Auto) Eos % (Auto) Seg Neutrophils % Seg Neuts % (Manual) Lymphocytes % (Manual) Seg Neutrophils # Seg Neutrophils # Man Lymphocytes # (Manual) APTT POC ABG pH ABG pH POC ABG pCO2 POC ABG pO2 ABG pO2 ABG HCO3 ABG Base Excess ABG Hemoglobin VBG pH Oxyhemoglobin Sodium Potassium Chloride Carbon Dioxide BUN Creatinine Glucose POC Glucose 248 H 241 H 257 H Lactic Acid Calcium AST ALT Alkaline Phosphatase CK-MB (CK-2) CK-MB (CK-2) Rel Index Total Protein Albumin TSH Urine WBC (Auto) Salicylates 02/05/17 02/06/17 02/06/17 23:56 05:30 11:50 WBC RBC Hgb Hct MCV MCH RDW Plt Count Lymph % (Auto) [place] % (Auto) Eos % (Auto) Seg Neutrophils % Seg Neuts % (Manual) Lymphocytes % (Manual) Seg Neutrophils # Seg Neutrophils # Man Lymphocytes # (Manual) APTT POC ABG pH ABG pH POC ABG pCO2 POC ABG pO2 ABG pO2 ABG HCO3 ABG Base Excess ABG Hemoglobin VBG pH Oxyhemoglobin Sodium Potassium Chloride Carbon Dioxide BUN Creatinine Glucose POC Glucose 258 H 120 H 254 H Lactic Acid Calcium AST ALT Alkaline Phosphatase CK-MB (CK-2) CK-MB (CK-2) Rel Index Total Protein Albumin TSH Urine WBC (Auto) Salicylates 02/06/17 02/06/17 02/07/17 17:11 23:50 05:22 WBC RBC Hgb Hct MCV MCH RDW Plt Count Lymph % (Auto) [place] % (Auto) Eos % (Auto) Seg Neutrophils % Seg Neuts % (Manual) Lymphocytes % (Manual) Seg Neutrophils # Seg Neutrophils # Man Lymphocytes # (Manual) APTT POC ABG pH ABG pH POC ABG pCO2 POC ABG pO2 ABG pO2 ABG HCO3 ABG Base Excess ABG Hemoglobin VBG pH Oxyhemoglobin Sodium Potassium Chloride Carbon Dioxide BUN Creatinine Glucose POC Glucose 149 H 240 H 258 H Lactic Acid Calcium AST ALT Alkaline Phosphatase CK-MB (CK-2) CK-MB (CK-2) Rel Index Total Protein Albumin TSH Urine WBC (Auto) Salicylates 02/07/17 02/07/17 02/07/17 11:15 18:33 23:59 WBC RBC Hgb Hct MCV MCH RDW Plt Count Lymph % (Auto) [place] % (Auto) Eos % (Auto) Seg Neutrophils % Seg Neuts % (Manual) Lymphocytes % (Manual) Seg Neutrophils # Seg Neutrophils # Man Lymphocytes # (Manual) APTT POC ABG pH ABG pH POC ABG pCO2 POC ABG pO2 ABG pO2 ABG HCO3 ABG Base Excess ABG Hemoglobin VBG pH Oxyhemoglobin Sodium Potassium Chloride Carbon Dioxide BUN Creatinine Glucose POC Glucose 239 H 176 H 186 H Lactic Acid Calcium AST ALT Alkaline Phosphatase CK-MB (CK-2) CK-MB (CK-2) Rel Index Total Protein Albumin TSH Urine WBC (Auto) Salicylates 02/08/17 02/08/17 02/08/17 06:15 11:55 16:55 WBC RBC Hgb Hct MCV MCH RDW Plt Count Lymph % (Auto) [place] % (Auto) Eos % (Auto) Seg Neutrophils % Seg Neuts % (Manual) Lymphocytes % (Manual) Seg Neutrophils # Seg Neutrophils # Man Lymphocytes # (Manual) APTT POC ABG pH ABG pH POC ABG pCO2 POC ABG pO2 ABG pO2 ABG HCO3 ABG Base Excess ABG Hemoglobin VBG pH Oxyhemoglobin Sodium Potassium Chloride Carbon Dioxide BUN Creatinine Glucose POC Glucose 195 H 129 H 246 H Lactic Acid Calcium AST ALT Alkaline Phosphatase CK-MB (CK-2) CK-MB (CK-2) Rel Index Total Protein Albumin TSH Urine WBC (Auto) Salicylates 02/08/17 02/09/17 02/09/17 23:51 05:51 07:24 WBC 14.7 H RBC 3.39 L Hgb 8.9 L Hct 26.4 L MCV 78 L MCH 26 L RDW 18.4 H Plt Count 670 H Lymph % (Auto) 11.8 L [place] % (Auto) Eos % (Auto) Seg Neutrophils % 81.2 H Seg Neuts % (Manual) Lymphocytes % (Manual) Seg Neutrophils # 11.9 H Seg Neutrophils # Man Lymphocytes # (Manual) APTT POC ABG pH ABG pH POC ABG pCO2 POC ABG pO2 ABG pO2 ABG HCO3 ABG Base Excess ABG Hemoglobin VBG pH Oxyhemoglobin Sodium Potassium Chloride Carbon Dioxide BUN Creatinine Glucose POC Glucose 262 H 295 H Lactic Acid Calcium AST ALT Alkaline Phosphatase CK-MB (CK-2) CK-MB (CK-2) Rel Index Total Protein Albumin TSH Urine WBC (Auto) Salicylates 02/09/17 02/09/17 02/09/17 07:24 12:08 18:39 WBC RBC Hgb Hct MCV MCH RDW Plt Count Lymph % (Auto) [place] % (Auto) Eos % (Auto) Seg Neutrophils % Seg Neuts % (Manual) Lymphocytes % (Manual) Seg Neutrophils # Seg Neutrophils # Man Lymphocytes # (Manual) APTT POC ABG pH ABG pH POC ABG pCO2 POC ABG pO2 ABG pO2 ABG HCO3 ABG Base Excess ABG Hemoglobin VBG pH Oxyhemoglobin Sodium Potassium Chloride 95.5 L Carbon Dioxide BUN 52 H Creatinine Glucose 277 H POC Glucose 236 H 151 H Lactic Acid Calcium AST ALT Alkaline Phosphatase CK-MB (CK-2) CK-MB (CK-2) Rel Index Total Protein Albumin TSH Urine WBC (Auto) Salicylates 02/10/17 02/10/17 02/10/17 00:01 05:44 11:21 WBC RBC Hgb Hct MCV MCH RDW Plt Count Lymph % (Auto) [place] % (Auto) Eos % (Auto) Seg Neutrophils % Seg Neuts % (Manual) Lymphocytes % (Manual) Seg Neutrophils # Seg Neutrophils # Man Lymphocytes # (Manual) APTT POC ABG pH ABG pH POC ABG pCO2 POC ABG pO2 ABG pO2 ABG HCO3 ABG Base Excess ABG Hemoglobin VBG pH Oxyhemoglobin Sodium Potassium Chloride Carbon Dioxide BUN Creatinine Glucose POC Glucose 210 H 201 H 233 H Lactic Acid Calcium AST ALT Alkaline Phosphatase CK-MB (CK-2) CK-MB (CK-2) Rel Index Total Protein Albumin TSH Urine WBC (Auto) Salicylates 02/10/17 02/10/17 02/11/17 17:29 23:56 05:24 WBC RBC Hgb Hct MCV MCH RDW Plt Count Lymph % (Auto) [place] % (Auto) Eos % (Auto) Seg Neutrophils % Seg Neuts % (Manual) Lymphocytes % (Manual) Seg Neutrophils # Seg Neutrophils # Man Lymphocytes # (Manual) APTT POC ABG pH ABG pH POC ABG pCO2 POC ABG pO2 ABG pO2 ABG HCO3 ABG Base Excess ABG Hemoglobin VBG pH Oxyhemoglobin Sodium Potassium Chloride Carbon Dioxide BUN Creatinine Glucose POC Glucose 167 H 191 H 135 H Lactic Acid Calcium AST ALT Alkaline Phosphatase CK-MB (CK-2) CK-MB (CK-2) Rel Index Total Protein Albumin TSH Urine WBC (Auto) Salicylates 02/11/17 02/11/17 02/11/17 12:25 17:03 23:59 WBC RBC Hgb Hct MCV MCH RDW Plt Count Lymph % (Auto) [place] % (Auto) Eos % (Auto) Seg Neutrophils % Seg Neuts % (Manual) Lymphocytes % (Manual) Seg Neutrophils # Seg Neutrophils # Man Lymphocytes # (Manual) APTT POC ABG pH ABG pH POC ABG pCO2 POC ABG pO2 ABG pO2 ABG HCO3 ABG Base Excess ABG Hemoglobin VBG pH Oxyhemoglobin Sodium Potassium Chloride Carbon Dioxide BUN Creatinine Glucose POC Glucose 275 H 172 H 215 H Lactic Acid Calcium AST ALT Alkaline Phosphatase CK-MB (CK-2) CK-MB (CK-2) Rel Index Total Protein Albumin TSH Urine WBC (Auto) Salicylates 02/12/17 02/12/17 02/12/17 05:39 11:33 17:55 WBC RBC Hgb Hct MCV MCH RDW Plt Count Lymph % (Auto) [place] % (Auto) Eos % (Auto) Seg Neutrophils % Seg Neuts % (Manual) Lymphocytes % (Manual) Seg Neutrophils # Seg Neutrophils # Man Lymphocytes # (Manual) APTT POC ABG pH ABG pH POC ABG pCO2 POC ABG pO2 ABG pO2 ABG HCO3 ABG Base Excess ABG Hemoglobin VBG pH Oxyhemoglobin Sodium Potassium Chloride Carbon Dioxide BUN Creatinine Glucose POC Glucose 261 H 217 H 172 H Lactic Acid Calcium AST ALT Alkaline Phosphatase CK-MB (CK-2) CK-MB (CK-2) Rel Index Total Protein Albumin TSH Urine WBC (Auto) Salicylates 02/13/17 02/13/17 02/13/17 00:25 06:46 11:26 WBC RBC Hgb Hct MCV MCH RDW Plt Count Lymph % (Auto) [place] % (Auto) Eos % (Auto) Seg Neutrophils % Seg Neuts % (Manual) Lymphocytes % (Manual) Seg Neutrophils # Seg Neutrophils # Man Lymphocytes # (Manual) APTT POC ABG pH ABG pH POC ABG pCO2 POC ABG pO2 ABG pO2 ABG HCO3 ABG Base Excess ABG Hemoglobin VBG pH Oxyhemoglobin Sodium Potassium Chloride Carbon Dioxide BUN Creatinine Glucose POC Glucose 207 H 219 H 231 H Lactic Acid Calcium AST ALT Alkaline Phosphatase CK-MB (CK-2) CK-MB (CK-2) Rel Index Total Protein Albumin TSH Urine WBC (Auto) Salicylates 02/13/17 02/13/17 02/14/17 17:12 23:44 05:44 WBC RBC Hgb Hct MCV MCH RDW Plt Count Lymph % (Auto) [place] % (Auto) Eos % (Auto) Seg Neutrophils % Seg Neuts % (Manual) Lymphocytes % (Manual) Seg Neutrophils # Seg Neutrophils # Man Lymphocytes # (Manual) APTT POC ABG pH ABG pH POC ABG pCO2 POC ABG pO2 ABG pO2 ABG HCO3 ABG Base Excess ABG Hemoglobin VBG pH Oxyhemoglobin Sodium Potassium Chloride Carbon Dioxide BUN Creatinine Glucose POC Glucose 190 H 256 H 184 H Lactic Acid Calcium AST ALT Alkaline Phosphatase CK-MB (CK-2) CK-MB (CK-2) Rel Index Total Protein Albumin TSH Urine WBC (Auto) Salicylates 02/14/17 02/14/17 02/14/17 12:21 17:57 23:18 WBC RBC Hgb Hct MCV MCH RDW Plt Count Lymph % (Auto) [place] % (Auto) Eos % (Auto) Seg Neutrophils % Seg Neuts % (Manual) Lymphocytes % (Manual) Seg Neutrophils # Seg Neutrophils # Man Lymphocytes # (Manual) APTT POC ABG pH ABG pH POC ABG pCO2 POC ABG pO2 ABG pO2 ABG HCO3 ABG Base Excess ABG Hemoglobin VBG pH Oxyhemoglobin Sodium Potassium Chloride Carbon Dioxide BUN Creatinine Glucose POC Glucose 233 H 155 H 165 H Lactic Acid Calcium AST ALT Alkaline Phosphatase CK-MB (CK-2) CK-MB (CK-2) Rel Index Total Protein Albumin TSH Urine WBC (Auto) Salicylates 02/15/17 02/15/17 02/15/17 05:33 11:45 17:20 WBC RBC Hgb Hct MCV MCH RDW Plt Count Lymph % (Auto) [place] % (Auto) Eos % (Auto) Seg Neutrophils % Seg Neuts % (Manual) Lymphocytes % (Manual) Seg Neutrophils # Seg Neutrophils # Man Lymphocytes # (Manual) APTT POC ABG pH ABG pH POC ABG pCO2 POC ABG pO2 ABG pO2 ABG HCO3 ABG Base Excess ABG Hemoglobin VBG pH Oxyhemoglobin Sodium Potassium Chloride Carbon Dioxide BUN Creatinine Glucose POC Glucose 239 H 130 H 189 H Lactic Acid Calcium AST ALT Alkaline Phosphatase CK-MB (CK-2) CK-MB (CK-2) Rel Index Total Protein Albumin TSH Urine WBC (Auto) Salicylates 02/16/17 02/16/17 02/16/17 00:14 05:09 12:31 WBC RBC Hgb Hct MCV MCH RDW Plt Count Lymph % (Auto) [place] % (Auto) Eos % (Auto) Seg Neutrophils % Seg Neuts % (Manual) Lymphocytes % (Manual) Seg Neutrophils # Seg Neutrophils # Man Lymphocytes # (Manual) APTT POC ABG pH ABG pH POC ABG pCO2 POC ABG pO2 ABG pO2 ABG HCO3 ABG Base Excess ABG Hemoglobin VBG pH Oxyhemoglobin Sodium Potassium Chloride Carbon Dioxide BUN Creatinine Glucose POC Glucose 197 H 226 H 178 H Lactic Acid Calcium AST ALT Alkaline Phosphatase CK-MB (CK-2) CK-MB (CK-2) Rel Index Total Protein Albumin TSH Urine WBC (Auto) Salicylates 02/16/17 02/16/17 02/17/17 16:35 23:49 05:37 WBC RBC Hgb Hct MCV MCH RDW Plt Count Lymph % (Auto) [place] % (Auto) Eos % (Auto) Seg Neutrophils % Seg Neuts % (Manual) Lymphocytes % (Manual) Seg Neutrophils # Seg Neutrophils # Man Lymphocytes # (Manual) APTT POC ABG pH ABG pH POC ABG pCO2 POC ABG pO2 ABG pO2 ABG HCO3 ABG Base Excess ABG Hemoglobin VBG pH Oxyhemoglobin Sodium Potassium Chloride Carbon Dioxide BUN Creatinine Glucose POC Glucose 174 H 62 L 153 H Lactic Acid Calcium AST ALT Alkaline Phosphatase CK-MB (CK-2) CK-MB (CK-2) Rel Index Total Protein Albumin TSH Urine WBC (Auto) Salicylates 02/17/17 02/17/17 02/17/17 11:39 17:02 22:24 WBC RBC Hgb Hct MCV MCH RDW Plt Count Lymph % (Auto) [place] % (Auto) Eos % (Auto) Seg Neutrophils % Seg Neuts % (Manual) Lymphocytes % (Manual) Seg Neutrophils # Seg Neutrophils # Man Lymphocytes # (Manual) APTT POC ABG pH ABG pH POC ABG pCO2 POC ABG pO2 ABG pO2 ABG HCO3 ABG Base Excess ABG Hemoglobin VBG pH Oxyhemoglobin Sodium Potassium Chloride Carbon Dioxide BUN Creatinine Glucose POC Glucose 231 H 112 H 116 H Lactic Acid Calcium AST ALT Alkaline Phosphatase CK-MB (CK-2) CK-MB (CK-2) Rel Index Total Protein Albumin TSH Urine WBC (Auto) Salicylates 02/18/17 02/19/17 02/19/17 15:34 05:09 07:57 WBC RBC Hgb Hct MCV MCH RDW Plt Count Lymph % (Auto) [place] % (Auto) Eos % (Auto) Seg Neutrophils % Seg Neuts % (Manual) Lymphocytes % (Manual) Seg Neutrophils # Seg Neutrophils # Man Lymphocytes # (Manual) APTT POC ABG pH ABG pH POC ABG pCO2 POC ABG pO2 ABG pO2 ABG HCO3 ABG Base Excess ABG Hemoglobin VBG pH Oxyhemoglobin Sodium Potassium Chloride Carbon Dioxide BUN Creatinine Glucose POC Glucose 215 H 218 H 283 H Lactic Acid Calcium AST ALT Alkaline Phosphatase CK-MB (CK-2) CK-MB (CK-2) Rel Index Total Protein Albumin TSH Urine WBC (Auto) Salicylates 02/19/17 02/19/17 02/20/17 14:49 22:10 05:10 WBC RBC Hgb Hct MCV MCH RDW Plt Count Lymph % (Auto) [place] % (Auto) Eos % (Auto) Seg Neutrophils % Seg Neuts % (Manual) Lymphocytes % (Manual) Seg Neutrophils # Seg Neutrophils # Man Lymphocytes # (Manual) APTT POC ABG pH ABG pH POC ABG pCO2 POC ABG pO2 ABG pO2 ABG HCO3 ABG Base Excess ABG Hemoglobin VBG pH Oxyhemoglobin Sodium Potassium Chloride Carbon Dioxide BUN Creatinine Glucose POC Glucose 290 H 169 H 209 H Lactic Acid Calcium AST ALT Alkaline Phosphatase CK-MB (CK-2) CK-MB (CK-2) Rel Index Total Protein Albumin TSH Urine WBC (Auto) Salicylates 02/20/17 02/20/17 02/21/17 15:05 21:52 02:00 WBC RBC Hgb Hct MCV MCH RDW Plt Count Lymph % (Auto) [place] % (Auto) Eos % (Auto) Seg Neutrophils % Seg Neuts % (Manual) Lymphocytes % (Manual) Seg Neutrophils # Seg Neutrophils # Man Lymphocytes # (Manual) APTT POC ABG pH ABG pH POC ABG pCO2 POC ABG pO2 ABG pO2 ABG HCO3 ABG Base Excess ABG Hemoglobin VBG pH Oxyhemoglobin Sodium Potassium Chloride Carbon Dioxide BUN Creatinine Glucose POC Glucose 172 H 209 H 216 H Lactic Acid Calcium AST ALT Alkaline Phosphatase CK-MB (CK-2) CK-MB (CK-2) Rel Index Total Protein Albumin TSH Urine WBC (Auto) Salicylates 02/21/17 02/21/17 02/21/17 04:54 14:43 17:47 WBC RBC Hgb Hct MCV MCH RDW Plt Count Lymph % (Auto) [place] % (Auto) Eos % (Auto) Seg Neutrophils % Seg Neuts % (Manual) Lymphocytes % (Manual) Seg Neutrophils # Seg Neutrophils # Man Lymphocytes # (Manual) APTT POC ABG pH ABG pH POC ABG pCO2 POC ABG pO2 ABG pO2 ABG HCO3 ABG Base Excess ABG Hemoglobin VBG pH Oxyhemoglobin Sodium Potassium Chloride Carbon Dioxide BUN Creatinine Glucose POC Glucose 227 H 290 H 220 H Lactic Acid Calcium AST ALT Alkaline Phosphatase CK-MB (CK-2) CK-MB (CK-2) Rel Index Total Protein Albumin TSH Urine WBC (Auto) Salicylates 02/21/17 02/22/17 02/22/17 22:02 04:52 15:25 WBC RBC Hgb Hct MCV MCH RDW Plt Count Lymph % (Auto) [place] % (Auto) Eos % (Auto) Seg Neutrophils % Seg Neuts % (Manual) Lymphocytes % (Manual) Seg Neutrophils # Seg Neutrophils # Man Lymphocytes # (Manual) APTT POC ABG pH ABG pH POC ABG pCO2 POC ABG pO2 ABG pO2 ABG HCO3 ABG Base Excess ABG Hemoglobin VBG pH Oxyhemoglobin Sodium Potassium Chloride Carbon Dioxide BUN Creatinine Glucose POC Glucose 246 H 212 H 236 H Lactic Acid Calcium AST ALT Alkaline Phosphatase CK-MB (CK-2) CK-MB (CK-2) Rel Index Total Protein Albumin TSH Urine WBC (Auto) Salicylates 02/22/17 02/23/17 02/23/17 21:33 06:04 10:00 WBC RBC Hgb Hct MCV MCH RDW Plt Count Lymph % (Auto) [place] % (Auto) Eos % (Auto) Seg Neutrophils % Seg Neuts % (Manual) Lymphocytes % (Manual) Seg Neutrophils # Seg Neutrophils # Man Lymphocytes # (Manual) APTT POC ABG pH ABG pH POC ABG pCO2 POC ABG pO2 ABG pO2 ABG HCO3 ABG Base Excess ABG Hemoglobin VBG pH Oxyhemoglobin Sodium Potassium Chloride Carbon Dioxide BUN Creatinine Glucose POC Glucose 255 H 208 H 174 H Lactic Acid Calcium AST ALT Alkaline Phosphatase CK-MB (CK-2) CK-MB (CK-2) Rel Index Total Protein Albumin TSH Urine WBC (Auto) Salicylates 02/23/17 02/23/17 02/23/17 12:52 17:15 21:51 WBC RBC Hgb Hct MCV MCH RDW Plt Count Lymph % (Auto) [place] % (Auto) Eos % (Auto) Seg Neutrophils % Seg Neuts % (Manual) Lymphocytes % (Manual) Seg Neutrophils # Seg Neutrophils # Man Lymphocytes # (Manual) APTT POC ABG pH ABG pH POC ABG pCO2 POC ABG pO2 ABG pO2 ABG HCO3 ABG Base Excess ABG Hemoglobin VBG pH Oxyhemoglobin Sodium Potassium Chloride Carbon Dioxide BUN Creatinine Glucose POC Glucose 203 H 269 H 205 H Lactic Acid Calcium AST ALT Alkaline Phosphatase CK-MB (CK-2) CK-MB (CK-2) Rel Index Total Protein Albumin TSH Urine WBC (Auto) Salicylates 02/24/17 02/24/17 02/24/17 10:23 17:45 21:24 WBC RBC Hgb Hct MCV MCH RDW Plt Count Lymph % (Auto) [place] % (Auto) Eos % (Auto) Seg Neutrophils % Seg Neuts % (Manual) Lymphocytes % (Manual) Seg Neutrophils # Seg Neutrophils # Man Lymphocytes # (Manual) APTT POC ABG pH ABG pH POC ABG pCO2 POC ABG pO2 ABG pO2 ABG HCO3 ABG Base Excess ABG Hemoglobin VBG pH Oxyhemoglobin Sodium Potassium Chloride Carbon Dioxide BUN Creatinine Glucose POC Glucose 280 H 239 H 254 H Lactic Acid Calcium AST ALT Alkaline Phosphatase CK-MB (CK-2) CK-MB (CK-2) Rel Index Total Protein Albumin TSH Urine WBC (Auto) Salicylates 02/25/17 02/25/17 02/25/17 02:12 05:17 14:32 WBC RBC Hgb Hct MCV MCH RDW Plt Count Lymph % (Auto) [place] % (Auto) Eos % (Auto) Seg Neutrophils % Seg Neuts % (Manual) Lymphocytes % (Manual) Seg Neutrophils # Seg Neutrophils # Man Lymphocytes # (Manual) APTT POC ABG pH ABG pH POC ABG pCO2 POC ABG pO2 ABG pO2 ABG HCO3 ABG Base Excess ABG Hemoglobin VBG pH Oxyhemoglobin Sodium Potassium Chloride Carbon Dioxide BUN Creatinine Glucose POC Glucose 296 H 332 H 353 H Lactic Acid Calcium AST ALT Alkaline Phosphatase CK-MB (CK-2) CK-MB (CK-2) Rel Index Total Protein Albumin TSH Urine WBC (Auto) Salicylates 02/25/17 02/26/17 02/26/17 22:14 00:37 05:52 WBC RBC Hgb Hct MCV MCH RDW Plt Count Lymph % (Auto) [place] % (Auto) Eos % (Auto) Seg Neutrophils % Seg Neuts % (Manual) Lymphocytes % (Manual) Seg Neutrophils # Seg Neutrophils # Man Lymphocytes # (Manual) APTT POC ABG pH ABG pH POC ABG pCO2 POC ABG pO2 ABG pO2 ABG HCO3 ABG Base Excess ABG Hemoglobin VBG pH Oxyhemoglobin Sodium Potassium Chloride Carbon Dioxide BUN Creatinine Glucose POC Glucose 201 H 233 H 269 H Lactic Acid Calcium AST ALT Alkaline Phosphatase CK-MB (CK-2) CK-MB (CK-2) Rel Index Total Protein Albumin TSH Urine WBC (Auto) Salicylates 02/26/17 02/26/17 02/26/17 11:48 13:49 21:26 WBC RBC Hgb Hct MCV MCH RDW Plt Count Lymph % (Auto) [place] % (Auto) Eos % (Auto) Seg Neutrophils % Seg Neuts % (Manual) Lymphocytes % (Manual) Seg Neutrophils # Seg Neutrophils # Man Lymphocytes # (Manual) APTT POC ABG pH ABG pH POC ABG pCO2 POC ABG pO2 ABG pO2 ABG HCO3 ABG Base Excess ABG Hemoglobin VBG pH Oxyhemoglobin Sodium Potassium Chloride Carbon Dioxide BUN Creatinine Glucose POC Glucose 333 H 322 H 244 H Lactic Acid Calcium AST ALT Alkaline Phosphatase CK-MB (CK-2) CK-MB (CK-2) Rel Index Total Protein Albumin TSH Urine WBC (Auto) Salicylates 02/27/17 02/27/17 02/27/17 05:27 13:51 21:48 WBC RBC Hgb Hct MCV MCH RDW Plt Count Lymph % (Auto) [place] % (Auto) Eos % (Auto) Seg Neutrophils % Seg Neuts % (Manual) Lymphocytes % (Manual) Seg Neutrophils # Seg Neutrophils # Man Lymphocytes # (Manual) APTT POC ABG pH ABG pH POC ABG pCO2 POC ABG pO2 ABG pO2 ABG HCO3 ABG Base Excess ABG Hemoglobin VBG pH Oxyhemoglobin Sodium Potassium Chloride Carbon Dioxide BUN Creatinine Glucose POC Glucose 217 H 239 H 254 H Lactic Acid Calcium AST ALT Alkaline Phosphatase CK-MB (CK-2) CK-MB (CK-2) Rel Index Total Protein Albumin TSH Urine WBC (Auto) Salicylates 02/28/17 02/28/17 02/28/17 05:38 11:00 19:44 WBC RBC Hgb Hct MCV MCH RDW Plt Count Lymph % (Auto) [place] % (Auto) Eos % (Auto) Seg Neutrophils % Seg Neuts % (Manual) Lymphocytes % (Manual) Seg Neutrophils # Seg Neutrophils # Man Lymphocytes # (Manual) APTT POC ABG pH ABG pH POC ABG pCO2 POC ABG pO2 ABG pO2 ABG HCO3 ABG Base Excess ABG Hemoglobin VBG pH Oxyhemoglobin Sodium Potassium Chloride Carbon Dioxide BUN Creatinine Glucose POC Glucose 325 H 203 H 116 H Lactic Acid Calcium AST ALT Alkaline Phosphatase CK-MB (CK-2) CK-MB (CK-2) Rel Index Total Protein Albumin TSH Urine WBC (Auto) Salicylates 03/01/17 03/01/17 03/01/17 00:08 05:31 12:17 WBC RBC Hgb Hct MCV MCH RDW Plt Count Lymph % (Auto) [place] % (Auto) Eos % (Auto) Seg Neutrophils % Seg Neuts % (Manual) Lymphocytes % (Manual) Seg Neutrophils # Seg Neutrophils # Man Lymphocytes # (Manual) APTT POC ABG pH ABG pH POC ABG pCO2 POC ABG pO2 ABG pO2 ABG HCO3 ABG Base Excess ABG Hemoglobin VBG pH Oxyhemoglobin Sodium Potassium Chloride Carbon Dioxide BUN Creatinine Glucose POC Glucose 202 H 183 H 184 H Lactic Acid Calcium AST ALT Alkaline Phosphatase CK-MB (CK-2) CK-MB (CK-2) Rel Index Total Protein Albumin TSH Urine WBC (Auto) Salicylates 03/02/17 03/02/17 03/02/17 00:12 05:58 18:22 WBC RBC Hgb Hct MCV MCH RDW Plt Count Lymph % (Auto) [place] % (Auto) Eos % (Auto) Seg Neutrophils % Seg Neuts % (Manual) Lymphocytes % (Manual) Seg Neutrophils # Seg Neutrophils # Man Lymphocytes # (Manual) APTT POC ABG pH ABG pH POC ABG pCO2 POC ABG pO2 ABG pO2 ABG HCO3 ABG Base Excess ABG Hemoglobin VBG pH Oxyhemoglobin Sodium Potassium Chloride Carbon Dioxide BUN Creatinine Glucose POC Glucose 117 H 176 H 156 H Lactic Acid Calcium AST ALT Alkaline Phosphatase CK-MB (CK-2) CK-MB (CK-2) Rel Index Total Protein Albumin TSH Urine WBC (Auto) Salicylates 03/02/17 03/03/17 03/03/17 23:51 05:44 11:32 WBC RBC Hgb Hct MCV MCH RDW Plt Count Lymph % (Auto) [place] % (Auto) Eos % (Auto) Seg Neutrophils % Seg Neuts % (Manual) Lymphocytes % (Manual) Seg Neutrophils # Seg Neutrophils # Man Lymphocytes # (Manual) APTT POC ABG pH ABG pH POC ABG pCO2 POC ABG pO2 ABG pO2 ABG HCO3 ABG Base Excess ABG Hemoglobin VBG pH Oxyhemoglobin Sodium Potassium Chloride Carbon Dioxide BUN Creatinine Glucose POC Glucose 211 H 117 H 133 H Lactic Acid Calcium AST ALT Alkaline Phosphatase CK-MB (CK-2) CK-MB (CK-2) Rel Index Total Protein Albumin TSH Urine WBC (Auto) Salicylates 03/03/17 03/03/17 03/04/17 17:43 23:17 05:30 WBC RBC Hgb Hct MCV MCH RDW Plt Count Lymph % (Auto) [place] % (Auto) Eos % (Auto) Seg Neutrophils % Seg Neuts % (Manual) Lymphocytes % (Manual) Seg Neutrophils # Seg Neutrophils # Man Lymphocytes # (Manual) APTT POC ABG pH ABG pH POC ABG pCO2 POC ABG pO2 ABG pO2 ABG HCO3 ABG Base Excess ABG Hemoglobin VBG pH Oxyhemoglobin Sodium Potassium Chloride Carbon Dioxide BUN Creatinine Glucose POC Glucose 206 H 170 H 126 H Lactic Acid Calcium AST ALT Alkaline Phosphatase CK-MB (CK-2) CK-MB (CK-2) Rel Index Total Protein Albumin TSH Urine WBC (Auto) Salicylates 03/04/17 03/04/17 03/05/17 12:17 17:27 05:20 WBC RBC Hgb Hct MCV MCH RDW Plt Count Lymph % (Auto) [place] % (Auto) Eos % (Auto) Seg Neutrophils % Seg Neuts % (Manual) Lymphocytes % (Manual) Seg Neutrophils # Seg Neutrophils # Man Lymphocytes # (Manual) APTT POC ABG pH ABG pH POC ABG pCO2 POC ABG pO2 ABG pO2 ABG HCO3 ABG Base Excess ABG Hemoglobin VBG pH Oxyhemoglobin Sodium Potassium Chloride Carbon Dioxide BUN Creatinine Glucose POC Glucose 135 H 121 H 185 H Lactic Acid Calcium AST ALT Alkaline Phosphatase CK-MB (CK-2) CK-MB (CK-2) Rel Index Total Protein Albumin TSH Urine WBC (Auto) Salicylates 03/05/17 03/06/17 03/06/17 11:50 11:52 17:34 WBC RBC Hgb Hct MCV MCH RDW Plt Count Lymph % (Auto) [place] % (Auto) Eos % (Auto) Seg Neutrophils % Seg Neuts % (Manual) Lymphocytes % (Manual) Seg Neutrophils # Seg Neutrophils # Man Lymphocytes # (Manual) APTT POC ABG pH ABG pH POC ABG pCO2 POC ABG pO2 ABG pO2 ABG HCO3 ABG Base Excess ABG Hemoglobin VBG pH Oxyhemoglobin Sodium Potassium Chloride Carbon Dioxide BUN Creatinine Glucose POC Glucose 116 H 133 H 181 H Lactic Acid Calcium AST ALT Alkaline Phosphatase CK-MB (CK-2) CK-MB (CK-2) Rel Index Total Protein Albumin TSH Urine WBC (Auto) Salicylates 03/07/17 03/07/17 03/07/17 05:21 11:36 17:49 WBC RBC Hgb Hct MCV MCH RDW Plt Count Lymph % (Auto) [place] % (Auto) Eos % (Auto) Seg Neutrophils % Seg Neuts % (Manual) Lymphocytes % (Manual) Seg Neutrophils # Seg Neutrophils # Man Lymphocytes # (Manual) APTT POC ABG pH ABG pH POC ABG pCO2 POC ABG pO2 ABG pO2 ABG HCO3 ABG Base Excess ABG Hemoglobin VBG pH Oxyhemoglobin Sodium Potassium Chloride Carbon Dioxide BUN Creatinine Glucose POC Glucose 159 H 137 H 158 H Lactic Acid Calcium AST ALT Alkaline Phosphatase CK-MB (CK-2) CK-MB (CK-2) Rel Index Total Protein Albumin TSH Urine WBC (Auto) Salicylates 03/08/17 03/08/17 03/08/17 05:51 13:58 23:50 WBC RBC Hgb Hct MCV MCH RDW Plt Count Lymph % (Auto) [place] % (Auto) Eos % (Auto) Seg Neutrophils % Seg Neuts % (Manual) Lymphocytes % (Manual) Seg Neutrophils # Seg Neutrophils # Man Lymphocytes # (Manual) APTT POC ABG pH ABG pH POC ABG pCO2 POC ABG pO2 ABG pO2 ABG HCO3 ABG Base Excess ABG Hemoglobin VBG pH Oxyhemoglobin Sodium Potassium Chloride Carbon Dioxide BUN Creatinine Glucose POC Glucose 122 H 182 H 114 H Lactic Acid Calcium AST ALT Alkaline Phosphatase CK-MB (CK-2) CK-MB (CK-2) Rel Index Total Protein Albumin TSH Urine WBC (Auto) Salicylates 03/09/17 03/09/17 03/09/17 05:21 05:51 05:51 WBC RBC 3.61 L Hgb 9.5 L Hct 28.3 L MCV 79 L MCH 26 L RDW 17.8 H Plt Count Lymph % (Auto) [place] % (Auto) Eos % (Auto) Seg Neutrophils % Seg Neuts % (Manual) Lymphocytes % (Manual) Seg Neutrophils # Seg Neutrophils # Man Lymphocytes # (Manual) APTT POC ABG pH ABG pH POC ABG pCO2 POC ABG pO2 ABG pO2 ABG HCO3 ABG Base Excess ABG Hemoglobin VBG pH Oxyhemoglobin Sodium 134 L Potassium Chloride 95.5 L Carbon Dioxide BUN 33 H Creatinine 0.5 L Glucose 143 H POC Glucose 153 H Lactic Acid Calcium AST ALT Alkaline Phosphatase CK-MB (CK-2) CK-MB (CK-2) Rel Index Total Protein Albumin TSH Urine WBC (Auto) Salicylates 03/09/17 03/09/17 03/09/17 12:10 18:13 21:00 WBC RBC Hgb Hct MCV MCH RDW Plt Count Lymph % (Auto) [place] % (Auto) Eos % (Auto) Seg Neutrophils % Seg Neuts % (Manual) Lymphocytes % (Manual) Seg Neutrophils # Seg Neutrophils # Man Lymphocytes # (Manual) APTT POC ABG pH ABG pH POC ABG pCO2 POC ABG pO2 ABG pO2 ABG HCO3 ABG Base Excess ABG Hemoglobin VBG pH Oxyhemoglobin Sodium Potassium Chloride Carbon Dioxide BUN Creatinine Glucose POC Glucose 203 H 221 H 198 H Lactic Acid Calcium AST ALT Alkaline Phosphatase CK-MB (CK-2) CK-MB (CK-2) Rel Index Total Protein Albumin TSH Urine WBC (Auto) Salicylates 03/09/17 03/10/17 03/10/17 23:58 05:09 05:09 WBC RBC Hgb 10.3 L Hct 30.5 L MCV 78 L MCH 26 L RDW 17.9 H Plt Count Lymph % (Auto) [place] % (Auto) 10.0 H Eos % (Auto) 6.0 H Seg Neutrophils % Seg Neuts % (Manual) Lymphocytes % (Manual) Seg Neutrophils # Seg Neutrophils # Man Lymphocytes # (Manual) APTT POC ABG pH ABG pH POC ABG pCO2 POC ABG pO2 ABG pO2 ABG HCO3 ABG Base Excess ABG Hemoglobin VBG pH Oxyhemoglobin Sodium 132 L Potassium Chloride 92.2 L Carbon Dioxide BUN 33 H Creatinine 0.5 L Glucose 50 L POC Glucose 167 H Lactic Acid Calcium AST ALT Alkaline Phosphatase CK-MB (CK-2) CK-MB (CK-2) Rel Index Total Protein Albumin TSH Urine WBC (Auto) Salicylates 03/10/17 03/10/17 03/10/17 05:33 05:34 11:48 WBC RBC Hgb Hct MCV MCH RDW Plt Count Lymph % (Auto) [place] % (Auto) Eos % (Auto) Seg Neutrophils % Seg Neuts % (Manual) Lymphocytes % (Manual) Seg Neutrophils # Seg Neutrophils # Man Lymphocytes # (Manual) APTT POC ABG pH ABG pH POC ABG pCO2 POC ABG pO2 ABG pO2 ABG HCO3 ABG Base Excess ABG Hemoglobin VBG pH Oxyhemoglobin Sodium Potassium Chloride Carbon Dioxide BUN Creatinine Glucose POC Glucose 52 L 53 L 148 H Lactic Acid Calcium AST ALT Alkaline Phosphatase CK-MB (CK-2) CK-MB (CK-2) Rel Index Total Protein Albumin TSH Urine WBC (Auto) Salicylates 03/10/17 03/10/17 03/11/17 17:53 23:47 05:18 WBC RBC Hgb Hct MCV MCH RDW Plt Count Lymph % (Auto) [place] % (Auto) Eos % (Auto) Seg Neutrophils % Seg Neuts % (Manual) Lymphocytes % (Manual) Seg Neutrophils # Seg Neutrophils # Man Lymphocytes # (Manual) APTT POC ABG pH ABG pH POC ABG pCO2 POC ABG pO2 ABG pO2 ABG HCO3 ABG Base Excess ABG Hemoglobin VBG pH Oxyhemoglobin Sodium Potassium Chloride Carbon Dioxide BUN Creatinine Glucose POC Glucose 189 H 398 H 126 H Lactic Acid Calcium AST ALT Alkaline Phosphatase CK-MB (CK-2) CK-MB (CK-2) Rel Index Total Protein Albumin TSH Urine WBC (Auto) Salicylates 03/11/17 03/11/17 03/11/17 11:53 17:30 23:10 WBC RBC Hgb Hct MCV MCH RDW Plt Count Lymph % (Auto) [place] % (Auto) Eos % (Auto) Seg Neutrophils % Seg Neuts % (Manual) Lymphocytes % (Manual) Seg Neutrophils # Seg Neutrophils # Man Lymphocytes # (Manual) APTT POC ABG pH ABG pH POC ABG pCO2 POC ABG pO2 ABG pO2 ABG HCO3 ABG Base Excess ABG Hemoglobin VBG pH Oxyhemoglobin Sodium Potassium Chloride Carbon Dioxide BUN Creatinine Glucose POC Glucose 198 H 142 H 244 H Lactic Acid Calcium AST ALT Alkaline Phosphatase CK-MB (CK-2) CK-MB (CK-2) Rel Index Total Protein Albumin TSH Urine WBC (Auto) Salicylates 03/12/17 03/12/17 03/12/17 04:36 11:49 17:23 WBC RBC Hgb Hct MCV MCH RDW Plt Count Lymph % (Auto) [place] % (Auto) Eos % (Auto) Seg Neutrophils % Seg Neuts % (Manual) Lymphocytes % (Manual) Seg Neutrophils # Seg Neutrophils # Man Lymphocytes # (Manual) APTT POC ABG pH ABG pH POC ABG pCO2 POC ABG pO2 ABG pO2 ABG HCO3 ABG Base Excess ABG Hemoglobin VBG pH Oxyhemoglobin Sodium Potassium Chloride Carbon Dioxide BUN Creatinine Glucose POC Glucose 205 H 197 H 209 H Lactic Acid Calcium AST ALT Alkaline Phosphatase CK-MB (CK-2) CK-MB (CK-2) Rel Index Total Protein Albumin TSH Urine WBC (Auto) Salicylates 03/12/17 03/13/17 03/13/17 23:51 05:32 11:43 WBC RBC Hgb Hct MCV MCH RDW Plt Count Lymph % (Auto) [place] % (Auto) Eos % (Auto) Seg Neutrophils % Seg Neuts % (Manual) Lymphocytes % (Manual) Seg Neutrophils # Seg Neutrophils # Man Lymphocytes # (Manual) APTT POC ABG pH ABG pH POC ABG pCO2 POC ABG pO2 ABG pO2 ABG HCO3 ABG Base Excess ABG Hemoglobin VBG pH Oxyhemoglobin Sodium Potassium Chloride Carbon Dioxide BUN Creatinine Glucose POC Glucose 210 H 154 H 164 H Lactic Acid Calcium AST ALT Alkaline Phosphatase CK-MB (CK-2) CK-MB (CK-2) Rel Index Total Protein Albumin TSH Urine WBC (Auto) Salicylates 03/13/17 03/13/17 03/14/17 17:11 23:26 05:42 WBC RBC Hgb Hct MCV MCH RDW Plt Count Lymph % (Auto) [place] % (Auto) Eos % (Auto) Seg Neutrophils % Seg Neuts % (Manual) Lymphocytes % (Manual) Seg Neutrophils # Seg Neutrophils # Man Lymphocytes # (Manual) APTT POC ABG pH ABG pH POC ABG pCO2 POC ABG pO2 ABG pO2 ABG HCO3 ABG Base Excess ABG Hemoglobin VBG pH Oxyhemoglobin Sodium Potassium Chloride Carbon Dioxide BUN Creatinine Glucose POC Glucose 195 H 240 H 230 H Lactic Acid Calcium AST ALT Alkaline Phosphatase CK-MB (CK-2) CK-MB (CK-2) Rel Index Total Protein Albumin TSH Urine WBC (Auto) Salicylates 03/14/17 03/14/17 03/14/17 14:04 17:34 23:42 WBC RBC Hgb Hct MCV MCH RDW Plt Count Lymph % (Auto) [place] % (Auto) Eos % (Auto) Seg Neutrophils % Seg Neuts % (Manual) Lymphocytes % (Manual) Seg Neutrophils # Seg Neutrophils # Man Lymphocytes # (Manual) APTT POC ABG pH ABG pH POC ABG pCO2 POC ABG pO2 ABG pO2 ABG HCO3 ABG Base Excess ABG Hemoglobin VBG pH Oxyhemoglobin Sodium Potassium Chloride Carbon Dioxide BUN Creatinine Glucose POC Glucose 227 H 186 H 225 H Lactic Acid Calcium AST ALT Alkaline Phosphatase CK-MB (CK-2) CK-MB (CK-2) Rel Index Total Protein Albumin TSH Urine WBC (Auto) Salicylates 03/15/17 03/15/17 03/15/17 05:21 17:13 21:37 WBC RBC Hgb Hct MCV MCH RDW Plt Count Lymph % (Auto) [place] % (Auto) Eos % (Auto) Seg Neutrophils % Seg Neuts % (Manual) Lymphocytes % (Manual) Seg Neutrophils # Seg Neutrophils # Man Lymphocytes # (Manual) APTT POC ABG pH ABG pH POC ABG pCO2 POC ABG pO2 ABG pO2 ABG HCO3 ABG Base Excess ABG Hemoglobin VBG pH Oxyhemoglobin Sodium Potassium Chloride Carbon Dioxide BUN Creatinine Glucose POC Glucose 244 H 203 H 216 H Lactic Acid Calcium AST ALT Alkaline Phosphatase CK-MB (CK-2) CK-MB (CK-2) Rel Index Total Protein Albumin TSH Urine WBC (Auto) Salicylates 03/16/17 03/16/17 03/16/17 05:52 18:07 21:54 WBC RBC Hgb Hct MCV MCH RDW Plt Count Lymph % (Auto) [place] % (Auto) Eos % (Auto) Seg Neutrophils % Seg Neuts % (Manual) Lymphocytes % (Manual) Seg Neutrophils # Seg Neutrophils # Man Lymphocytes # (Manual) APTT POC ABG pH ABG pH POC ABG pCO2 POC ABG pO2 ABG pO2 ABG HCO3 ABG Base Excess ABG Hemoglobin VBG pH Oxyhemoglobin Sodium Potassium Chloride Carbon Dioxide BUN Creatinine Glucose POC Glucose 248 H 254 H 244 H Lactic Acid Calcium AST ALT Alkaline Phosphatase CK-MB (CK-2) CK-MB (CK-2) Rel Index Total Protein Albumin TSH Urine WBC (Auto) Salicylates 03/17/17 03/17/17 03/17/17 07:07 07:42 07:43 WBC RBC Hgb 9.7 L Hct 29.1 L MCV 78 L MCH 26 L RDW 17.4 H Plt Count Lymph % (Auto) [place] % (Auto) Eos % (Auto) Seg Neutrophils % Seg Neuts % (Manual) Lymphocytes % (Manual) Seg Neutrophils # Seg Neutrophils # Man Lymphocytes # (Manual) APTT POC ABG pH ABG pH POC ABG pCO2 POC ABG pO2 ABG pO2 ABG HCO3 ABG Base Excess ABG Hemoglobin VBG pH Oxyhemoglobin Sodium Potassium Chloride 96.6 L Carbon Dioxide BUN 30 H Creatinine 0.5 L Glucose 251 H POC Glucose 222 H Lactic Acid Calcium AST ALT Alkaline Phosphatase CK-MB (CK-2) CK-MB (CK-2) Rel Index Total Protein Albumin TSH Urine WBC (Auto) Salicylates 03/17/17 03/17/17 03/18/17 14:08 21:20 14:24 WBC RBC Hgb Hct MCV MCH RDW Plt Count Lymph % (Auto) [place] % (Auto) Eos % (Auto) Seg Neutrophils % Seg Neuts % (Manual) Lymphocytes % (Manual) Seg Neutrophils # Seg Neutrophils # Man Lymphocytes # (Manual) APTT POC ABG pH ABG pH POC ABG pCO2 POC ABG pO2 ABG pO2 ABG HCO3 ABG Base Excess ABG Hemoglobin VBG pH Oxyhemoglobin Sodium Potassium Chloride Carbon Dioxide BUN Creatinine Glucose POC Glucose 281 H 239 H 195 H Lactic Acid Calcium AST ALT Alkaline Phosphatase CK-MB (CK-2) CK-MB (CK-2) Rel Index Total Protein Albumin TSH Urine WBC (Auto) Salicylates 03/18/17 03/19/17 03/19/17 21:37 04:57 14:23 WBC RBC Hgb Hct MCV MCH RDW Plt Count Lymph % (Auto) [place] % (Auto) Eos % (Auto) Seg Neutrophils % Seg Neuts % (Manual) Lymphocytes % (Manual) Seg Neutrophils # Seg Neutrophils # Man Lymphocytes # (Manual) APTT POC ABG pH ABG pH POC ABG pCO2 POC ABG pO2 ABG pO2 ABG HCO3 ABG Base Excess ABG Hemoglobin VBG pH Oxyhemoglobin Sodium Potassium Chloride Carbon Dioxide BUN Creatinine Glucose POC Glucose 227 H 205 H 277 H Lactic Acid Calcium AST ALT Alkaline Phosphatase CK-MB (CK-2) CK-MB (CK-2) Rel Index Total Protein Albumin TSH Urine WBC (Auto) Salicylates 03/19/17 03/19/17 03/20/17 20:31 21:47 04:55 WBC RBC Hgb Hct MCV MCH RDW Plt Count Lymph % (Auto) [place] % (Auto) Eos % (Auto) Seg Neutrophils % Seg Neuts % (Manual) Lymphocytes % (Manual) Seg Neutrophils # Seg Neutrophils # Man Lymphocytes # (Manual) APTT POC ABG pH ABG pH POC ABG pCO2 POC ABG pO2 ABG pO2 ABG HCO3 ABG Base Excess ABG Hemoglobin VBG pH Oxyhemoglobin Sodium Potassium Chloride Carbon Dioxide BUN Creatinine Glucose POC Glucose 256 H 270 H 202 H Lactic Acid Calcium AST ALT Alkaline Phosphatase CK-MB (CK-2) CK-MB (CK-2) Rel Index Total Protein Albumin TSH Urine WBC (Auto) Salicylates 03/20/17 03/20/17 03/21/17 14:09 21:40 05:09 WBC RBC Hgb Hct MCV MCH RDW Plt Count Lymph % (Auto) [place] % (Auto) Eos % (Auto) Seg Neutrophils % Seg Neuts % (Manual) Lymphocytes % (Manual) Seg Neutrophils # Seg Neutrophils # Man Lymphocytes # (Manual) APTT POC ABG pH ABG pH POC ABG pCO2 POC ABG pO2 ABG pO2 ABG HCO3 ABG Base Excess ABG Hemoglobin VBG pH Oxyhemoglobin Sodium Potassium Chloride Carbon Dioxide BUN Creatinine Glucose POC Glucose 200 H 214 H 233 H Lactic Acid Calcium AST ALT Alkaline Phosphatase CK-MB (CK-2) CK-MB (CK-2) Rel Index Total Protein Albumin TSH Urine WBC (Auto) Salicylates 03/21/17 03/21/17 03/22/17 14:06 21:26 05:43 WBC RBC Hgb Hct MCV MCH RDW Plt Count Lymph % (Auto) [place] % (Auto) Eos % (Auto) Seg Neutrophils % Seg Neuts % (Manual) Lymphocytes % (Manual) Seg Neutrophils # Seg Neutrophils # Man Lymphocytes # (Manual) APTT POC ABG pH ABG pH POC ABG pCO2 POC ABG pO2 ABG pO2 ABG HCO3 ABG Base Excess ABG Hemoglobin VBG pH Oxyhemoglobin Sodium Potassium Chloride Carbon Dioxide BUN Creatinine Glucose POC Glucose 250 H 155 H 251 H Lactic Acid Calcium AST ALT Alkaline Phosphatase CK-MB (CK-2) CK-MB (CK-2) Rel Index Total Protein Albumin TSH Urine WBC (Auto) Salicylates 03/22/17 03/22/17 03/23/17 13:46 21:16 00:23 WBC RBC Hgb Hct MCV MCH RDW Plt Count Lymph % (Auto) [place] % (Auto) Eos % (Auto) Seg Neutrophils % Seg Neuts % (Manual) Lymphocytes % (Manual) Seg Neutrophils # Seg Neutrophils # Man Lymphocytes # (Manual) APTT POC ABG pH ABG pH POC ABG pCO2 POC ABG pO2 ABG pO2 ABG HCO3 ABG Base Excess ABG Hemoglobin VBG pH Oxyhemoglobin Sodium Potassium Chloride Carbon Dioxide BUN Creatinine Glucose POC Glucose 269 H 197 H 126 H Lactic Acid Calcium AST ALT Alkaline Phosphatase CK-MB (CK-2) CK-MB (CK-2) Rel Index Total Protein Albumin TSH Urine WBC (Auto) Salicylates 03/23/17 03/23/17 03/23/17 05:39 14:06 21:39 WBC RBC Hgb Hct MCV MCH RDW Plt Count Lymph % (Auto) [place] % (Auto) Eos % (Auto) Seg Neutrophils % Seg Neuts % (Manual) Lymphocytes % (Manual) Seg Neutrophils # Seg Neutrophils # Man Lymphocytes # (Manual) APTT POC ABG pH ABG pH POC ABG pCO2 POC ABG pO2 ABG pO2 ABG HCO3 ABG Base Excess ABG Hemoglobin VBG pH Oxyhemoglobin Sodium Potassium Chloride Carbon Dioxide BUN Creatinine Glucose POC Glucose 234 H 241 H 248 H Lactic Acid Calcium AST ALT Alkaline Phosphatase CK-MB (CK-2) CK-MB (CK-2) Rel Index Total Protein Albumin TSH Urine WBC (Auto) Salicylates 03/24/17 03/24/17 03/25/17 05:06 21:46 05:38 WBC RBC Hgb Hct MCV MCH RDW Plt Count Lymph % (Auto) [place] % (Auto) Eos % (Auto) Seg Neutrophils % Seg Neuts % (Manual) Lymphocytes % (Manual) Seg Neutrophils # Seg Neutrophils # Man Lymphocytes # (Manual) APTT POC ABG pH ABG pH POC ABG pCO2 POC ABG pO2 ABG pO2 ABG HCO3 ABG Base Excess ABG Hemoglobin VBG pH Oxyhemoglobin Sodium Potassium Chloride Carbon Dioxide BUN Creatinine Glucose POC Glucose 232 H 276 H 242 H Lactic Acid Calcium AST ALT Alkaline Phosphatase CK-MB (CK-2) CK-MB (CK-2) Rel Index Total Protein Albumin TSH Urine WBC (Auto) Salicylates 03/25/17 03/25/17 03/26/17 14:30 23:14 13:53 WBC RBC Hgb Hct MCV MCH RDW Plt Count Lymph % (Auto) [place] % (Auto) Eos % (Auto) Seg Neutrophils % Seg Neuts % (Manual) Lymphocytes % (Manual) Seg Neutrophils # Seg Neutrophils # Man Lymphocytes # (Manual) APTT POC ABG pH ABG pH POC ABG pCO2 POC ABG pO2 ABG pO2 ABG HCO3 ABG Base Excess ABG Hemoglobin VBG pH Oxyhemoglobin Sodium Potassium Chloride Carbon Dioxide BUN Creatinine Glucose POC Glucose 246 H 208 H 195 H Lactic Acid Calcium AST ALT Alkaline Phosphatase CK-MB (CK-2) CK-MB (CK-2) Rel Index Total Protein Albumin TSH Urine WBC (Auto) Salicylates 03/26/17 03/27/17 03/27/17 21:58 05:18 14:57 WBC RBC Hgb Hct MCV MCH RDW Plt Count Lymph % (Auto) [place] % (Auto) Eos % (Auto) Seg Neutrophils % Seg Neuts % (Manual) Lymphocytes % (Manual) Seg Neutrophils # Seg Neutrophils # Man Lymphocytes # (Manual) APTT POC ABG pH ABG pH POC ABG pCO2 POC ABG pO2 ABG pO2 ABG HCO3 ABG Base Excess ABG Hemoglobin VBG pH Oxyhemoglobin Sodium Potassium Chloride Carbon Dioxide BUN Creatinine Glucose POC Glucose 241 H 199 H 269 H Lactic Acid Calcium AST ALT Alkaline Phosphatase CK-MB (CK-2) CK-MB (CK-2) Rel Index Total Protein Albumin TSH Urine WBC (Auto) Salicylates 03/27/17 03/28/17 03/28/17 21:33 13:52 21:29 WBC RBC Hgb Hct MCV MCH RDW Plt Count Lymph % (Auto) [place] % (Auto) Eos % (Auto) Seg Neutrophils % Seg Neuts % (Manual) Lymphocytes % (Manual) Seg Neutrophils # Seg Neutrophils # Man Lymphocytes # (Manual) APTT POC ABG pH ABG pH POC ABG pCO2 POC ABG pO2 ABG pO2 ABG HCO3 ABG Base Excess ABG Hemoglobin VBG pH Oxyhemoglobin Sodium Potassium Chloride Carbon Dioxide BUN Creatinine Glucose POC Glucose 214 H 243 H 286 H Lactic Acid Calcium AST ALT Alkaline Phosphatase CK-MB (CK-2) CK-MB (CK-2) Rel Index Total Protein Albumin TSH Urine WBC (Auto) Salicylates 03/29/17 03/29/17 03/29/17 04:32 04:32 13:58 WBC RBC Hgb 10.6 L Hct 32.9 L MCV 78 L MCH 25 L RDW 17.6 H Plt Count Lymph % (Auto) 38.0 H [place] % (Auto) 9.7 H Eos % (Auto) Seg Neutrophils % Seg Neuts % (Manual) Lymphocytes % (Manual) Seg Neutrophils # Seg Neutrophils # Man Lymphocytes # (Manual) APTT POC ABG pH ABG pH POC ABG pCO2 POC ABG pO2 ABG pO2 ABG HCO3 ABG Base Excess ABG Hemoglobin VBG pH Oxyhemoglobin Sodium 132 L Potassium Chloride 94.0 L Carbon Dioxide BUN 28 H Creatinine 0.5 L Glucose 236 H POC Glucose 171 H Lactic Acid Calcium AST ALT 71 H Alkaline Phosphatase 391 H CK-MB (CK-2) CK-MB (CK-2) Rel Index Total Protein 8.3 H Albumin 2.9 L TSH Urine WBC (Auto) Salicylates 03/29/17 03/30/17 03/30/17 20:59 06:07 11:52 WBC RBC Hgb Hct MCV MCH RDW Plt Count Lymph % (Auto) [place] % (Auto) Eos % (Auto) Seg Neutrophils % Seg Neuts % (Manual) Lymphocytes % (Manual) Seg Neutrophils # Seg Neutrophils # Man Lymphocytes # (Manual) APTT POC ABG pH ABG pH POC ABG pCO2 POC ABG pO2 ABG pO2 ABG HCO3 ABG Base Excess ABG Hemoglobin VBG pH Oxyhemoglobin Sodium Potassium Chloride Carbon Dioxide BUN Creatinine Glucose POC Glucose 215 H 259 H 197 H Lactic Acid Calcium AST ALT Alkaline Phosphatase CK-MB (CK-2) CK-MB (CK-2) Rel Index Total Protein Albumin TSH Urine WBC (Auto) Salicylates 03/30/17 03/31/17 03/31/17 21:34 05:42 14:34 WBC RBC Hgb Hct MCV MCH RDW Plt Count Lymph % (Auto) [place] % (Auto) Eos % (Auto) Seg Neutrophils % Seg Neuts % (Manual) Lymphocytes % (Manual) Seg Neutrophils # Seg Neutrophils # Man Lymphocytes # (Manual) APTT POC ABG pH ABG pH POC ABG pCO2 POC ABG pO2 ABG pO2 ABG HCO3 ABG Base Excess ABG Hemoglobin VBG pH Oxyhemoglobin Sodium Potassium Chloride Carbon Dioxide BUN Creatinine Glucose POC Glucose 207 H 184 H 213 H Lactic Acid Calcium AST ALT Alkaline Phosphatase CK-MB (CK-2) CK-MB (CK-2) Rel Index Total Protein Albumin TSH Urine WBC (Auto) Salicylates 03/31/17 04/01/17 04/01/17 21:32 05:53 13:48 WBC RBC Hgb Hct MCV MCH RDW Plt Count Lymph % (Auto) [place] % (Auto) Eos % (Auto) Seg Neutrophils % Seg Neuts % (Manual) Lymphocytes % (Manual) Seg Neutrophils # Seg Neutrophils # Man Lymphocytes # (Manual) APTT POC ABG pH ABG pH POC ABG pCO2 POC ABG pO2 ABG pO2 ABG HCO3 ABG Base Excess ABG Hemoglobin VBG pH Oxyhemoglobin Sodium Potassium Chloride Carbon Dioxide BUN Creatinine Glucose POC Glucose 249 H 225 H 256 H Lactic Acid Calcium AST ALT Alkaline Phosphatase CK-MB (CK-2) CK-MB (CK-2) Rel Index Total Protein Albumin TSH Urine WBC (Auto) Salicylates 04/01/17 04/02/17 04/02/17 21:34 05:32 14:05 WBC RBC Hgb Hct MCV MCH RDW Plt Count Lymph % (Auto) [place] % (Auto) Eos % (Auto) Seg Neutrophils % Seg Neuts % (Manual) Lymphocytes % (Manual) Seg Neutrophils # Seg Neutrophils # Man Lymphocytes # (Manual) APTT POC ABG pH ABG pH POC ABG pCO2 POC ABG pO2 ABG pO2 ABG HCO3 ABG Base Excess ABG Hemoglobin VBG pH Oxyhemoglobin Sodium Potassium Chloride Carbon Dioxide BUN Creatinine Glucose POC Glucose 292 H 220 H 187 H Lactic Acid Calcium AST ALT Alkaline Phosphatase CK-MB (CK-2) CK-MB (CK-2) Rel Index Total Protein Albumin TSH Urine WBC (Auto) Salicylates 04/02/17 04/03/17 04/03/17 21:57 04:49 14:12 WBC RBC Hgb Hct MCV MCH RDW Plt Count Lymph % (Auto) [place] % (Auto) Eos % (Auto) Seg Neutrophils % Seg Neuts % (Manual) Lymphocytes % (Manual) Seg Neutrophils # Seg Neutrophils # Man Lymphocytes # (Manual) APTT POC ABG pH ABG pH POC ABG pCO2 POC ABG pO2 ABG pO2 ABG HCO3 ABG Base Excess ABG Hemoglobin VBG pH Oxyhemoglobin Sodium Potassium Chloride Carbon Dioxide BUN Creatinine Glucose POC Glucose 285 H 256 H 197 H Lactic Acid Calcium AST ALT Alkaline Phosphatase CK-MB (CK-2) CK-MB (CK-2) Rel Index Total Protein Albumin TSH Urine WBC (Auto) Salicylates 04/03/17 04/04/17 04/04/17 21:11 05:20 13:18 WBC RBC Hgb Hct MCV MCH RDW Plt Count Lymph % (Auto) [place] % (Auto) Eos % (Auto) Seg Neutrophils % Seg Neuts % (Manual) Lymphocytes % (Manual) Seg Neutrophils # Seg Neutrophils # Man Lymphocytes # (Manual) APTT POC ABG pH ABG pH POC ABG pCO2 POC ABG pO2 ABG pO2 ABG HCO3 ABG Base Excess ABG Hemoglobin VBG pH Oxyhemoglobin Sodium Potassium Chloride Carbon Dioxide BUN Creatinine Glucose POC Glucose 166 H 228 H 252 H Lactic Acid Calcium AST ALT Alkaline Phosphatase CK-MB (CK-2) CK-MB (CK-2) Rel Index Total Protein Albumin TSH Urine WBC (Auto) Salicylates 04/04/17 04/05/17 04/05/17 21:51 06:14 09:54 WBC RBC Hgb Hct MCV MCH RDW Plt Count Lymph % (Auto) [place] % (Auto) Eos % (Auto) Seg Neutrophils % Seg Neuts % (Manual) Lymphocytes % (Manual) Seg Neutrophils # Seg Neutrophils # Man Lymphocytes # (Manual) APTT POC ABG pH ABG pH POC ABG pCO2 POC ABG pO2 ABG pO2 ABG HCO3 ABG Base Excess ABG Hemoglobin VBG pH Oxyhemoglobin Sodium Potassium Chloride Carbon Dioxide BUN Creatinine Glucose POC Glucose 252 H 152 H 181 H Lactic Acid Calcium AST ALT Alkaline Phosphatase CK-MB (CK-2) CK-MB (CK-2) Rel Index Total Protein Albumin TSH Urine WBC (Auto) Salicylates 04/05/17 04/05/17 04/05/17 14:49 17:34 21:38 WBC RBC Hgb Hct MCV MCH RDW Plt Count Lymph % (Auto) [place] % (Auto) Eos % (Auto) Seg Neutrophils % Seg Neuts % (Manual) Lymphocytes % (Manual) Seg Neutrophils # Seg Neutrophils # Man Lymphocytes # (Manual) APTT POC ABG pH ABG pH POC ABG pCO2 POC ABG pO2 ABG pO2 ABG HCO3 ABG Base Excess ABG Hemoglobin VBG pH Oxyhemoglobin Sodium Potassium Chloride Carbon Dioxide BUN Creatinine Glucose POC Glucose 219 H 268 H 278 H Lactic Acid Calcium AST ALT Alkaline Phosphatase CK-MB (CK-2) CK-MB (CK-2) Rel Index Total Protein Albumin TSH Urine WBC (Auto) Salicylates
--- NOTE | 2017-04-06 15:53 | Progress Note ---
Assessment and Plan Assessment and plan: 51 YO Male with CKD,HTN, DM presents to ED after found down and unresponsive by his neighbor, who subsequently called EMS. Upon arrival, patient found unresponsive on the floor with a serum glucose of 21, patient has a known history of alcohol abuse and delirium tremens. The patient was administered D5 approximate 500 mls during transport without change in mental status/level of consciousness. Pt seen and evaluated in ED was was found to be unable to protect his airway. Pt intubated and placed on vent support. Pt found to have evidence of hypothyroidism. He was started on Synthroid. He has since been in the ICU. financial services education consultant try to locate family, even spoke to the family who he lives with. They themselves were unaware of any family members. After ethics committee meeting on the patient. The decision was made to make him DO NOT RESUSCITATE and to transfer him to hospice. Given his very poor prognosis and poor likelihood of recovery. It was decided that was not his best interest to get trach and PEG. Therefore he'll be transferred to the hospice intubated. Now Awaiting on court ordered /state guardianship. Hypoglycemic brain injury Persistent vegetative state Metabolic encephalopathy Hypoglycemia/hypothermia, resolved Acute respiratory failure mechanical ventilator greater than 96 hours UTI with klebsiella, treated ( Cx + on 01/28), then with ESBL likely colonization hyponatremia, Hypothyroidism IDDM Hypertension low grade Fever, resolved - Cont supportive care and current medication. Monitor vitals, repeat cx on - no growth - increased dose of long acting insulin to 15 unit - Patient is DNR- needs guardianship from the state to give consent for further management, as has no family to give consent. History Interval history: Patient was seen and examined. Follow-up on current diagnosis. Imaging, nursing note, chart, labs and old chart reviewed. Patient remains intubated Hospitalist Physical - Physical exam Narrative exam: GEN: Severely Gale contacted BMI 15.4, comatose HEENT: NCAT, NG tube and ET tube in place NECK: supple, no adenopathy, no thyromegaly, no JVD CVS/HEART: RRR, NORMAL S1S2, NO JVD, pulses present bilaterally CHEST/LUNGS: Symmetrical chest expansion, good air entry bilaterally GI/Abdomen: soft, ND, good bowel sounds, no guarding or rebound /Bladder: no suprapubic tenderness, no CVA or paraspinal tenderness EXT/Skin: no obvious rash Neuro: comatose, doesn't follow commands Psych: Unresponsive - Constitutional Vitals: Temp Pulse Resp BP Pulse Ox 98.9 F 87 12 124/81 100 04/06/17 12:00 04/06/17 15:48 04/06/17 08:55 04/06/17 15:48 04/06/17 15:48 General appearance: Present: no acute distress, well-nourished Results - Labs CBC & Chem 7: 03/29/17 04:32 03/29/17 04:32 Labs: Laboratory Last Values WBC 6.3 K/mm3 (4.5-11.0) 03/29/17 04:32 RBC 4.23 M/mm3 (3.65-5.03) 03/29/17 04:32 Hgb 10.6 gm/dl (11.8-15.2) L 03/29/17 04:32 Hct 32.9 % (35.5-45.6) L 03/29/17 04:32 MCV 78 fl (84-94) L 03/29/17 04:32 MCH 25 pg (28-32) L 03/29/17 04:32 MCHC 32 % (32-34) 03/29/17 04:32 RDW 17.6 % (13.2-15.2) H 03/29/17 04:32 Plt Count 355 K/mm3 (140-440) 03/29/17 04:32 Lymph % (Auto) 38.0 % (13.4-35.0) H 03/29/17 04:32 [place] % (Auto) 9.7 % (0.0-7.3) H 03/29/17 04:32 Eos % (Auto) 3.1 % (0.0-4.3) 03/29/17 04:32 Baso % (Auto) 0.7 % (0.0-1.8) 03/29/17 04:32 Lymph # 2.4 K/mm3 (1.2-5.4) 03/29/17 04:32 [place] # 0.6 K/mm3 (0.0-0.8) 03/29/17 04:32 Eos # 0.2 K/mm3 (0.0-0.4) 03/29/17 04:32 Baso # 0.0 K/mm3 (0.0-0.1) 03/29/17 04:32 Add Manual Diff Complete 01/10/17 04:30 Total Counted 100 01/10/17 04:30 Seg Neutrophils % 48.5 % (40.0-70.0) 03/29/17 04:32 Seg Neuts % (Manual) 88.0 % (40.0-70.0) H 01/10/17 04:30 Band Neutrophils % 7.0 % 01/10/17 04:30 Lymphocytes % (Manual) 4.0 % (13.4-35.0) L 01/10/17 04:30 Reactive Lymphs % (Man) 0 % 01/10/17 04:30 Monocytes % (Manual) 1.0 % (0.0-7.3) 01/10/17 04:30 Eosinophils % (Manual) 0 % (0.0-4.3) 01/10/17 04:30 Basophils % (Manual) 0 % (0.0-1.8) 01/10/17 04:30 Metamyelocytes % 0 % 01/10/17 04:30 Myelocytes % 0 % 01/10/17 04:30 Promyelocytes % 0 % 01/10/17 04:30 Blast Cells % 0 % 01/10/17 04:30 Nucleated RBC % Not Reportable 01/10/17 04:30 Seg Neutrophils # 3.0 K/mm3 (1.8-7.7) 03/29/17 04:32 Seg Neutrophils # Man 21.2 K/mm3 (1.8-7.7) H 01/10/17 04:30 Band Neutrophils # 1.7 K/mm3 01/10/17 04:30 Lymphocytes # (Manual) 1.0 K/mm3 (1.2-5.4) L 01/10/17 04:30 Abs React Lymphs (Man) 0.0 K/mm3 01/10/17 04:30 Monocytes # (Manual) 0.2 K/mm3 (0.0-0.8) 01/10/17 04:30 Eosinophils # (Manual) 0.0 K/mm3 (0.0-0.4) 01/10/17 04:30 Basophils # (Manual) 0.0 K/mm3 (0.0-0.1) 01/10/17 04:30 Metamyelocytes # 0.0 K/mm3 01/10/17 04:30 Myelocytes # 0.0 K/mm3 01/10/17 04:30 Promyelocytes # 0.0 K/mm3 01/10/17 04:30 Blast Cells # 0.0 K/mm3 01/10/17 04:30 WBC Morphology Not Reportable 01/10/17 04:30 Hypersegmented Neuts Not Reportable 01/10/17 04:30 Hyposegmented Neuts Not Reportable 01/10/17 04:30 Hypogranular Neuts Not Reportable 01/10/17 04:30 Smudge Cells Not Reportable 01/10/17 04:30 Toxic Granulation Not Reportable 01/10/17 04:30 Toxic Vacuolation Not Reportable 01/10/17 04:30 Dohle Bodies Not Reportable 01/10/17 04:30 Pelger-Huet Anomaly Not Reportable 01/10/17 04:30 [place] Rods Not Reportable 01/10/17 04:30 Platelet Estimate Consistent w auto 01/10/17 04:30 Clumped Platelets Not Reportable 01/10/17 04:30 Plt Clumps, EDTA Not Reportable 01/10/17 04:30 Large Platelets Not Reportable 01/10/17 04:30 Giant Platelets Not Reportable 01/10/17 04:30 Platelet Satelliting Not Reportable 01/10/17 04:30 Plt Morphology Comment Not Reportable 01/10/17 04:30 RBC Morphology Not Reportable 01/10/17 04:30 Dimorphic RBCs Not Reportable 01/10/17 04:30 Polychromasia Not Reportable 01/10/17 04:30 Hypochromasia 1+ 01/10/17 04:30 Poikilocytosis Not Reportable 01/10/17 04:30 Anisocytosis Not Reportable 01/10/17 04:30 Microcytosis Not Reportable 01/10/17 04:30 Macrocytosis Not Reportable 01/10/17 04:30 Spherocytes Not Reportable 01/10/17 04:30 Pappenheimer Bodies Not Reportable 01/10/17 04:30 Sickle Cells Not Reportable 01/10/17 04:30 Target Cells Not Reportable 01/10/17 04:30 Tear Drop Cells Not Reportable 01/10/17 04:30 Ovalocytes Not Reportable 01/10/17 04:30 Helmet Cells Not Reportable 01/10/17 04:30 [place] Bodies Not Reportable 01/10/17 04:30 [place] Rings Not Reportable 01/10/17 04:30 [place] Cells Not Reportable 01/10/17 04:30 Bite Cells Not Reportable 01/10/17 04:30 Crenated Cell Not Reportable 01/10/17 04:30 Elliptocytes Not Reportable 01/10/17 04:30 Acanthocytes (Spur) Not Reportable 01/10/17 04:30 Rouleaux Not Reportable 01/10/17 04:30 Hemoglobin C Crystals Not Reportable 01/10/17 04:30 Schistocytes Not Reportable 01/10/17 04:30 Malaria parasites Not Reportable 01/10/17 04:30 [place] Bodies Not Reportable 01/10/17 04:30 Hem Pathologist Commnt No 01/10/17 04:30 PT 14.1 Sec. (12.2-14.9) 01/17/17 04:10 INR 1.04 (0.87-1.13) 01/17/17 04:10 APTT 36.6 Sec. (24.2-36.6) 01/17/17 04:10 POC ABG pH 7.442 (7.35-7.45) 01/31/17 18:55 ABG pH 7.420 pH Units (7.350-7.450) 01/17/17 04:35 POC ABG pCO2 32.8 (35-45) L 01/31/17 18:55 ABG pCO2 34.5 mm Hg 01/17/17 04:35 POC ABG pO2 82 (80-105) 01/31/17 18:55 ABG pO2 160.3 mm Hg (80.0-90.0) H 01/17/17 04:35 POC ABG HCO3 22.4 01/31/17 18:55 ABG HCO3 21.9 mmol/L (20.0-26.0) 01/17/17 04:35 POC ABG Total CO2 23 01/31/17 18:55 POC ABG O2 Sat 97 01/31/17 18:55 ABG O2 Saturation 99.0 % (95.0-99.0) 01/17/17 04:35 ABG O2 Content 11.1 (0.0-44) 01/17/17 04:35 POC ABG Base Excess -2 01/31/17 18:55 ABG Base Excess -2.3 mmol/L (-2.0-3.0) L 01/17/17 04:35 ABG Hemoglobin 7.9 gm/dl (14.0-18.0) L 01/17/17 04:35 ABG Carboxyhemoglobin 1.5 % (0.0-5.0) 01/17/17 04:35 ABG Methemoglobin 0.5 % (0.0-1.5) 01/17/17 04:35 VBG pH 7.284 (7.320-7.420) L 01/09/17 10:16 Oxyhemoglobin 97.1 % (95.0-99.0) 01/17/17 04:35 FiO2 25 % 01/31/17 18:55 Sodium 132 mmol/L (137-145) L 03/29/17 04:32 Potassium 4.5 mmol/L (3.6-5.0) 03/29/17 04:32 Chloride 94.0 mmol/L (98-107) L 03/29/17 04:32 Carbon Dioxide 26 mmol/L (22-30) 03/29/17 04:32 Anion Gap 17 mmol/L 03/29/17 04:32 BUN 28 mg/dL (9-20) H 03/29/17 04:32 Creatinine 0.5 mg/dL (0.8-1.5) L 03/29/17 04:32 Estimated GFR > 60 ml/min 03/29/17 04:32 BUN/Creatinine Ratio 56 % 03/29/17 04:32 Glucose 236 mg/dL (75-100) H 03/29/17 04:32 POC Glucose 100 (70-105) 04/06/17 06:09 Lactic Acid 0.80 mmol/L (0.7-2.0) 01/30/17 11:49 Calcium 9.2 mg/dL (8.4-10.2) 03/29/17 04:32 Phosphorus 3.10 mg/dL (2.5-4.5) 03/29/17 04:32 Magnesium 1.90 mg/dL (1.7-2.3) 03/29/17 04:32 Total Bilirubin 0.30 mg/dL (0.1-1.2) 03/29/17 04:32 AST 40 units/L (5-40) 03/29/17 04:32 ALT 71 units/L (7-56) H 03/29/17 04:32 Alkaline Phosphatase 391 units/L (35-129) H 03/29/17 04:32 Ammonia 35.0 umol/L (25-60) 01/09/17 10:16 Total Creatine Kinase 135 units/L (55-170) 01/09/17 10:16 CK-MB (CK-2) 7.1 ng/mL (0.0-4.0) H 01/09/17 10:16 CK-MB (CK-2) Rel Index 5.2 (0-4) H 01/09/17 10:16 Troponin T < 0.010 ng/mL (0.00-0.029) 01/09/17 10:16 NT-Pro-B Natriuret Pep 602.9 pg/mL (0-900) 01/09/17 10:16 Total Protein 8.3 g/dL (6.3-8.2) H 03/29/17 04:32 Albumin 2.9 g/dL (3.9-5) L 03/29/17 04:32 Albumin/Globulin Ratio 0.5 % 03/29/17 04:32 TSH 52.800 mlU/mL (0.270-4.200) H 01/09/17 10:16 Free T4 0.78 ng/dL (0.76-1.46) 01/09/17 10:16 Total Cortisol 54.8 mcg/dL () 01/09/17 16:19 Urine Color Yellow (Yellow) 01/28/17 17:52 Urine Turbidity Clear (Clear) 01/28/17 17:52 Urine pH 6.0 (5.0-7.0) 01/28/17 17:52 Ur Specific [place] 1.016 (1.003-1.030) 01/28/17 17:52 Urine Protein 100 mg/dl mg/dL (Negative) 01/28/17 17:52 Urine Glucose (UA) >=500 mg/dL (Negative) 01/28/17 17:52 Urine Ketones Neg mg/dL (Negative) 01/28/17 17:52 Urine Blood Sm (Negative) 01/28/17 17:52 Urine Nitrite Neg (Negative) 01/28/17 17:52 Urine Bilirubin Neg (Negative) 01/28/17 17:52 Urine Urobilinogen < 2.0 mg/dL (<2.0) 01/28/17 17:52 Ur Leukocyte Esterase Lg (Negative) 01/28/17 17:52 Urine WBC (Auto) > 182.0 /HPF (0.0-6.0) H 01/28/17 17:52 Urine RBC (Auto) 113.0 /HPF (0.0-6.0) 01/28/17 17:52 Urine Bacteria (Auto) 2+ /HPF (Negative) 01/28/17 17:52 Urine WBC Clumps 3+ /HPF 01/28/17 17:52 Urine Mucus Few /HPF 01/14/17 14:07 Urine Yeast (Budding) 3+ /HPF 01/14/17 14:07 Salicylates < 0.3 mg/dL (2.8-20.0) L 01/09/17 10:16 Urine Opiates Screen Presumptive negative 01/09/17 10:23 Urine Methadone Screen Presumptive negative 01/09/17 10:23 Acetaminophen < 15.0 ug/mL (10.0-30.0) 01/09/17 10:16 Ur Barbiturates Screen Presumptive negative 01/09/17 10:23 Ur Phencyclidine Scrn Presumptive negative 01/09/17 10:23 Ur Amphetamines Screen Presumptive negative 01/09/17 10:23 U Benzodiazepines Scrn Presumptive negative 01/09/17 10:23 Urine Cocaine Screen Presumptive negative 01/09/17 10:23 U Marijuana (THC) Screen Presumptive negative 01/09/17 10:23 Drugs of Abuse Note Disclamer 01/09/17 10:23 Plasma/Serum Alcohol < 0.01 gm% (0-0.07) 01/09/17 10:16
[2017-04-07] MEDS: SYNTHROID PO SCH (06:08)
[2017-04-07] MEDS: HumuLIN R SUB-Q SCH ×3 (06:08→22:12)
[2017-04-07] MEDS: HEPARIN SUB-Q SCH ×2 (10:02→21:27)
[2017-04-07] MEDS: PEPCID PO SCH ×2 (10:02→21:27)
--- NOTE | 2017-04-07 15:09 | Progress Note ---
Assessment and Plan Imp: 1. Hypoglycemia/hypothermia -> suspect due to too much insulin 2. Hypothyroidism; doubt myxedema coma with normal free T4 3. Acute respiratory failure, hypoxia 4. UTI/SIRS 5. Metabolic encephalopathy Rec: 1. GI/DVT PPx/TFs 2. Reviewed chart; ethics note 01/18/17 recommended AND and "hospice"; trying to get guardianship to sign necessary orders for this (however, I was told they are not willing to sign for withdrawal of ventilator); further care felt to be futile and would only prolong potential suffering without affecting ultimate outcome 3. Comfort care, no escalation of care; would not check any further labs; would not work him up for infections in setting of fever, only treat w/ Tylenol 4. Poor prognosis Unable to locate family. Subjective Date of service: 04/07/17 Principal diagnosis: Acute respiratory failure,encephalopathy Interval history: No events. On vent. Unresponsive. Active Medications Acetaminophen (Tylenol) 650 mg FEEDTUBE Q6H PRN PRN Reason: Non Cardiac Pain Or Temp>101 Last Admin: 04/06/17 23:15 Dose: 650 mg Lipase/Protease/Amylase (Pancreaze Dr 10,500 Unit) 1 each FEEDTUBE PRN PRN PRN Reason: For Clogged Feeding Tube Famotidine (Pepcid) 20 mg PO BID [facility] Last Admin: 04/07/17 10:02 Dose: 20 mg Heparin Sodium (Porcine) (Heparin) 5,000 unit SUB-Q Q12HR [facility] Last Admin: 04/07/17 10:02 Dose: 5,000 unit Hydrophilic Ointment (Vaseline Lip Therapy) 1 applic TP Q2HR PRN PRN Reason: Dry Lips Insulin Detemir (Levemir) 15 units SUB-Q DAILY [facility] Last Admin: 03/09/17 10:15 Dose: 15 units Insulin Human Regular (Novolin R) 0 units SUB-Q Q8HR [facility] PRN Reason: Protocol Last Admin: 04/07/17 14:48 Dose: 3 units Levothyroxine Sodium (Synthroid) 100 mcg PO DAILY@0600 [facility] Last Admin: 04/07/17 06:08 Dose: 100 mcg Multi-Ingred Cream/Lotion/Oil/Oint (Artificial Tears Ophth Oint) 1 applic OU Q4HR PRN PRN Reason: Dry Eye(s) Simple Syrup (Simple Syrup) 15 ml FEEDTUBE PRN PRN PRN Reason: Hypoglycemia Last Admin: 02/28/17 18:56 Dose: 15 ml Simple Syrup (Simple Syrup) 30 ml FEEDTUBE PRN PRN PRN Reason: Hypoglycemia Sodium Bicarbonate (Sodium Bicarbonate) 325 mg FEEDTUBE PRN PRN PRN Reason: For Clogged Feeding Tube Objective Vital Signs - 12hr 04/07/17 04/07/17 04/07/17 03:41 04:00 04:25 Temperature 99.1 F Pulse Rate 88 Pulse Rate [ From Monitor] Respiratory 13 Rate Blood Pressure 114/58 114/58 O2 Sat by Pulse 95 98 Oximetry 04/07/17 04/07/17 04/07/17 06:00 07:35 07:42 Temperature Pulse Rate 73 78 73 Pulse Rate [ From Monitor] Respiratory 14 18 Rate Blood Pressure 114/58 114/58 114/58 O2 Sat by Pulse 93 98 100 Oximetry 04/07/17 04/07/17 04/07/17 08:10 08:36 11:38 Temperature 98.6 F Pulse Rate 91 H Pulse Rate [ 73 From Monitor] Respiratory 15 Rate Blood Pressure 116/77 O2 Sat by Pulse 99 100 Oximetry 04/07/17 12:00 Temperature 98.6 F Pulse Rate Pulse Rate [ From Monitor] Respiratory Rate Blood Pressure O2 Sat by Pulse Oximetry Constitutional: no acute distress, other Eyes: non-icteric ENT: oropharynx moist Neck: supple, no JVD Effort: normal Ascultation: Bilateral: clear Cardiovascular: regular rate and rhythm Gastrointestinal: normoactive bowel sounds, soft, non-tender, non-distended Integumentary: normal Extremities: no cyanosis, no edema, pink and warm Neurologic: pupils equal and round, other (minimal responsive,no posturing, otherwise no changes, not following any commands. ) Psychiatric: other (unable to obtain) CBC and BMP: 03/29/17 04:32 03/29/17 04:32 ABG, PT/INR, D-dimer: ABG POC ABG pH 7.442 (7.35-7.45) 01/31/17 18:55 ABG pH 7.420 pH Units (7.350-7.450) 01/17/17 04:35 POC ABG pCO2 32.8 (35-45) L 01/31/17 18:55 ABG pCO2 34.5 mm Hg 01/17/17 04:35 POC ABG pO2 82 (80-105) 01/31/17 18:55 ABG pO2 160.3 mm Hg (80.0-90.0) H 01/17/17 04:35 POC ABG HCO3 22.4 01/31/17 18:55 POC ABG Total CO2 23 01/31/17 18:55 POC ABG O2 Sat 97 01/31/17 18:55 ABG O2 Saturation 99.0 % (95.0-99.0) 01/17/17 04:35 PT/INR, D-dimer PT 14.1 Sec. (12.2-14.9) 01/17/17 04:10 INR 1.04 (0.87-1.13) 01/17/17 04:10 Abnormal lab findings: Abnormal Labs 01/09/17 01/09/17 01/09/17 10:16 10:16 10:16 WBC RBC Hgb 9.7 L Hct 28.4 L MCV 76 L MCH 26 L RDW 17.2 H Plt Count 448 H Lymph % (Auto) Collin % (Auto) Eos % (Auto) Seg Neutrophils % 79.5 H Seg Neuts % (Manual) Lymphocytes % (Manual) Seg Neutrophils # Seg Neutrophils # Man Lymphocytes # (Manual) APTT 39.6 H POC ABG pH ABG pH POC ABG pCO2 POC ABG pO2 ABG pO2 ABG HCO3 ABG Base Excess ABG Hemoglobin VBG pH Oxyhemoglobin Sodium 132 L Potassium Chloride 96.7 L Carbon Dioxide 21 L BUN 34 H Creatinine Glucose POC Glucose Lactic Acid Calcium 8.3 L AST ALT Alkaline Phosphatase 151 H CK-MB (CK-2) 7.1 H CK-MB (CK-2) Rel Index 5.2 H Total Protein Albumin 3.3 L TSH Urine WBC (Auto) Salicylates 01/09/17 01/09/17 01/09/17 10:16 10:16 10:16 WBC RBC Hgb Hct MCV MCH RDW Plt Count Lymph % (Auto) Collin % (Auto) Eos % (Auto) Seg Neutrophils % Seg Neuts % (Manual) Lymphocytes % (Manual) Seg Neutrophils # Seg Neutrophils # Man Lymphocytes # (Manual) APTT POC ABG pH ABG pH POC ABG pCO2 POC ABG pO2 ABG pO2 ABG HCO3 ABG Base Excess ABG Hemoglobin VBG pH 7.284 L Oxyhemoglobin Sodium Potassium Chloride Carbon Dioxide BUN Creatinine Glucose POC Glucose Lactic Acid Calcium AST ALT Alkaline Phosphatase CK-MB (CK-2) CK-MB (CK-2) Rel Index Total Protein Albumin TSH 52.800 H Urine WBC (Auto) Salicylates < 0.3 L 01/09/17 01/09/17 01/09/17 10:23 11:14 12:49 WBC RBC Hgb Hct MCV MCH RDW Plt Count Lymph % (Auto) Collin % (Auto) Eos % (Auto) Seg Neutrophils % Seg Neuts % (Manual) Lymphocytes % (Manual) Seg Neutrophils # Seg Neutrophils # Man Lymphocytes # (Manual) APTT POC ABG pH ABG pH POC ABG pCO2 POC ABG pO2 643 H ABG pO2 ABG HCO3 ABG Base Excess ABG Hemoglobin VBG pH Oxyhemoglobin Sodium Potassium Chloride Carbon Dioxide BUN Creatinine Glucose POC Glucose < 40 L Lactic Acid Calcium AST ALT Alkaline Phosphatase CK-MB (CK-2) CK-MB (CK-2) Rel Index Total Protein Albumin TSH Urine WBC (Auto) 61.0 H Salicylates 01/09/17 01/09/17 01/09/17 13:13 14:21 15:09 WBC RBC Hgb Hct MCV MCH RDW Plt Count Lymph % (Auto) Collin % (Auto) Eos % (Auto) Seg Neutrophils % Seg Neuts % (Manual) Lymphocytes % (Manual) Seg Neutrophils # Seg Neutrophils # Man Lymphocytes # (Manual) APTT POC ABG pH ABG pH POC ABG pCO2 POC ABG pO2 ABG pO2 ABG HCO3 ABG Base Excess ABG Hemoglobin VBG pH Oxyhemoglobin Sodium Potassium Chloride Carbon Dioxide BUN Creatinine Glucose POC Glucose 128 H 65 L 120 H Lactic Acid Calcium AST ALT Alkaline Phosphatase CK-MB (CK-2) CK-MB (CK-2) Rel Index Total Protein Albumin TSH Urine WBC (Auto) Salicylates 01/09/17 01/09/17 01/10/17 16:28 17:14 04:30 WBC 24.1 H RBC 3.38 L Hgb 8.5 L Hct 26.0 L MCV 77 L MCH 25 L RDW 17.9 H Plt Count 474 H Lymph % (Auto) Collin % (Auto) Eos % (Auto) Seg Neutrophils % Seg Neuts % (Manual) 88.0 H Lymphocytes % (Manual) 4.0 L Seg Neutrophils # Seg Neutrophils # Man 21.2 H Lymphocytes # (Manual) 1.0 L APTT POC ABG pH ABG pH POC ABG pCO2 POC ABG pO2 ABG pO2 ABG HCO3 ABG Base Excess ABG Hemoglobin VBG pH Oxyhemoglobin Sodium Potassium Chloride Carbon Dioxide BUN Creatinine Glucose POC Glucose 44 L 112 H Lactic Acid Calcium AST ALT Alkaline Phosphatase CK-MB (CK-2) CK-MB (CK-2) Rel Index Total Protein Albumin TSH Urine WBC (Auto) Salicylates 01/10/17 01/10/17 01/10/17 04:30 05:41 05:45 WBC RBC Hgb Hct MCV MCH RDW Plt Count Lymph % (Auto) Collin % (Auto) Eos % (Auto) Seg Neutrophils % Seg Neuts % (Manual) Lymphocytes % (Manual) Seg Neutrophils # Seg Neutrophils # Man Lymphocytes # (Manual) APTT POC ABG pH ABG pH POC ABG pCO2 26.6 L POC ABG pO2 207 H ABG pO2 ABG HCO3 ABG Base Excess ABG Hemoglobin VBG pH Oxyhemoglobin Sodium Potassium Chloride Carbon Dioxide 17 L BUN 27 H Creatinine Glucose POC Glucose 68 L Lactic Acid Calcium 7.5 L AST ALT Alkaline Phosphatase CK-MB (CK-2) CK-MB (CK-2) Rel Index Total Protein Albumin TSH Urine WBC (Auto) Salicylates 01/10/17 01/10/17 01/10/17 07:47 10:50 13:41 WBC RBC Hgb Hct MCV MCH RDW Plt Count Lymph % (Auto) Collin % (Auto) Eos % (Auto) Seg Neutrophils % Seg Neuts % (Manual) Lymphocytes % (Manual) Seg Neutrophils # Seg Neutrophils # Man Lymphocytes # (Manual) APTT POC ABG pH ABG pH POC ABG pCO2 POC ABG pO2 ABG pO2 ABG HCO3 ABG Base Excess ABG Hemoglobin VBG pH Oxyhemoglobin Sodium Potassium Chloride Carbon Dioxide BUN Creatinine Glucose POC Glucose 148 H 165 H 114 H Lactic Acid Calcium AST ALT Alkaline Phosphatase CK-MB (CK-2) CK-MB (CK-2) Rel Index Total Protein Albumin TSH Urine WBC (Auto) Salicylates 01/10/17 01/10/17 01/10/17 20:20 21:39 23:24 WBC RBC Hgb Hct MCV MCH RDW Plt Count Lymph % (Auto) Collin % (Auto) Eos % (Auto) Seg Neutrophils % Seg Neuts % (Manual) Lymphocytes % (Manual) Seg Neutrophils # Seg Neutrophils # Man Lymphocytes # (Manual) APTT POC ABG pH ABG pH POC ABG pCO2 POC ABG pO2 ABG pO2 ABG HCO3 ABG Base Excess ABG Hemoglobin VBG pH Oxyhemoglobin Sodium Potassium Chloride Carbon Dioxide BUN Creatinine Glucose POC Glucose 150 H 175 H 155 H Lactic Acid Calcium AST ALT Alkaline Phosphatase CK-MB (CK-2) CK-MB (CK-2) Rel Index Total Protein Albumin TSH Urine WBC (Auto) Salicylates 01/11/17 01/11/17 01/11/17 00:19 04:06 05:20 WBC 15.2 H RBC 3.40 L Hgb 8.9 L Hct 26.3 L MCV 78 L MCH 26 L RDW 18.6 H Plt Count 462 H Lymph % (Auto) 13.2 L Collin % (Auto) Eos % (Auto) Seg Neutrophils % 80.8 H Seg Neuts % (Manual) Lymphocytes % (Manual) Seg Neutrophils # 12.3 H Seg Neutrophils # Man Lymphocytes # (Manual) APTT POC ABG pH 7.463 H ABG pH POC ABG pCO2 26.2 L POC ABG pO2 185 H ABG pO2 ABG HCO3 ABG Base Excess ABG Hemoglobin VBG pH Oxyhemoglobin Sodium Potassium Chloride Carbon Dioxide BUN Creatinine Glucose POC Glucose 163 H Lactic Acid Calcium AST ALT Alkaline Phosphatase CK-MB (CK-2) CK-MB (CK-2) Rel Index Total Protein Albumin TSH Urine WBC (Auto) Salicylates 01/11/17 01/11/17 01/11/17 05:20 06:21 07:57 WBC RBC Hgb Hct MCV MCH RDW Plt Count Lymph % (Auto) Collin % (Auto) Eos % (Auto) Seg Neutrophils % Seg Neuts % (Manual) Lymphocytes % (Manual) Seg Neutrophils # Seg Neutrophils # Man Lymphocytes # (Manual) APTT POC ABG pH ABG pH POC ABG pCO2 POC ABG pO2 ABG pO2 ABG HCO3 ABG Base Excess ABG Hemoglobin VBG pH Oxyhemoglobin Sodium Potassium 3.4 L Chloride 111.5 H Carbon Dioxide 17 L BUN Creatinine Glucose 147 H POC Glucose 139 H 188 H Lactic Acid Calcium 8.0 L AST ALT Alkaline Phosphatase CK-MB (CK-2) CK-MB (CK-2) Rel Index Total Protein Albumin TSH Urine WBC (Auto) Salicylates 01/11/17 01/11/17 01/11/17 11:46 16:50 23:15 WBC RBC Hgb Hct MCV MCH RDW Plt Count Lymph % (Auto) Collin % (Auto) Eos % (Auto) Seg Neutrophils % Seg Neuts % (Manual) Lymphocytes % (Manual) Seg Neutrophils # Seg Neutrophils # Man Lymphocytes # (Manual) APTT POC ABG pH ABG pH POC ABG pCO2 POC ABG pO2 ABG pO2 ABG HCO3 ABG Base Excess ABG Hemoglobin VBG pH Oxyhemoglobin Sodium Potassium Chloride Carbon Dioxide BUN Creatinine Glucose POC Glucose 199 H 235 H 155 H Lactic Acid Calcium AST ALT Alkaline Phosphatase CK-MB (CK-2) CK-MB (CK-2) Rel Index Total Protein Albumin TSH Urine WBC (Auto) Salicylates 01/12/17 01/12/17 01/12/17 05:02 06:56 14:50 WBC RBC Hgb Hct MCV MCH RDW Plt Count Lymph % (Auto) Collin % (Auto) Eos % (Auto) Seg Neutrophils % Seg Neuts % (Manual) Lymphocytes % (Manual) Seg Neutrophils # Seg Neutrophils # Man Lymphocytes # (Manual) APTT POC ABG pH ABG pH POC ABG pCO2 28.0 L POC ABG pO2 178 H ABG pO2 ABG HCO3 ABG Base Excess ABG Hemoglobin VBG pH Oxyhemoglobin Sodium Potassium Chloride Carbon Dioxide BUN Creatinine Glucose POC Glucose 119 H 164 H Lactic Acid Calcium AST ALT Alkaline Phosphatase CK-MB (CK-2) CK-MB (CK-2) Rel Index Total Protein Albumin TSH Urine WBC (Auto) Salicylates 01/13/17 01/13/17 01/13/17 03:37 03:37 04:26 WBC RBC 3.61 L Hgb 9.3 L Hct 28.0 L MCV 78 L MCH 26 L RDW 18.2 H Plt Count Lymph % (Auto) Collin % (Auto) Eos % (Auto) Seg Neutrophils % Seg Neuts % (Manual) Lymphocytes % (Manual) Seg Neutrophils # Seg Neutrophils # Man Lymphocytes # (Manual) APTT POC ABG pH 7.485 H ABG pH POC ABG pCO2 25.4 L POC ABG pO2 73 L ABG pO2 ABG HCO3 ABG Base Excess ABG Hemoglobin VBG pH Oxyhemoglobin Sodium Potassium Chloride 112.4 H Carbon Dioxide 19 L BUN Creatinine Glucose 118 H POC Glucose Lactic Acid Calcium 8.0 L AST ALT Alkaline Phosphatase CK-MB (CK-2) CK-MB (CK-2) Rel Index Total Protein Albumin TSH Urine WBC (Auto) Salicylates 01/13/17 01/13/17 01/13/17 06:15 11:50 17:31 WBC RBC Hgb Hct MCV MCH RDW Plt Count Lymph % (Auto) Collin % (Auto) Eos % (Auto) Seg Neutrophils % Seg Neuts % (Manual) Lymphocytes % (Manual) Seg Neutrophils # Seg Neutrophils # Man Lymphocytes # (Manual) APTT POC ABG pH ABG pH POC ABG pCO2 POC ABG pO2 ABG pO2 ABG HCO3 ABG Base Excess ABG Hemoglobin VBG pH Oxyhemoglobin Sodium Potassium Chloride Carbon Dioxide BUN Creatinine Glucose POC Glucose 116 H 171 H 203 H Lactic Acid Calcium AST ALT Alkaline Phosphatase CK-MB (CK-2) CK-MB (CK-2) Rel Index Total Protein Albumin TSH Urine WBC (Auto) Salicylates 01/14/17 01/14/17 01/14/17 00:02 04:50 04:50 WBC RBC 3.32 L Hgb 8.5 L Hct 26.1 L MCV 79 L MCH 26 L RDW 18.2 H Plt Count Lymph % (Auto) Collin % (Auto) 9.0 H Eos % (Auto) Seg Neutrophils % Seg Neuts % (Manual) Lymphocytes % (Manual) Seg Neutrophils # Seg Neutrophils # Man Lymphocytes # (Manual) APTT POC ABG pH ABG pH POC ABG pCO2 POC ABG pO2 ABG pO2 ABG HCO3 ABG Base Excess ABG Hemoglobin VBG pH Oxyhemoglobin Sodium Potassium Chloride 112.5 H Carbon Dioxide BUN Creatinine Glucose 149 H POC Glucose 157 H Lactic Acid Calcium 8.1 L AST ALT Alkaline Phosphatase CK-MB (CK-2) CK-MB (CK-2) Rel Index Total Protein Albumin TSH Urine WBC (Auto) Salicylates 01/14/17 01/14/17 01/14/17 05:10 11:27 14:07 WBC RBC Hgb Hct MCV MCH RDW Plt Count Lymph % (Auto) Collin % (Auto) Eos % (Auto) Seg Neutrophils % Seg Neuts % (Manual) Lymphocytes % (Manual) Seg Neutrophils # Seg Neutrophils # Man Lymphocytes # (Manual) APTT POC ABG pH ABG pH POC ABG pCO2 POC ABG pO2 ABG pO2 ABG HCO3 ABG Base Excess ABG Hemoglobin VBG pH Oxyhemoglobin Sodium Potassium Chloride Carbon Dioxide BUN Creatinine Glucose POC Glucose 176 H 147 H Lactic Acid Calcium AST ALT Alkaline Phosphatase CK-MB (CK-2) CK-MB (CK-2) Rel Index Total Protein Albumin TSH Urine WBC (Auto) 53.0 H Salicylates 01/14/17 01/15/17 01/15/17 16:52 00:04 05:26 WBC RBC Hgb Hct MCV MCH RDW Plt Count Lymph % (Auto) Collin % (Auto) Eos % (Auto) Seg Neutrophils % Seg Neuts % (Manual) Lymphocytes % (Manual) Seg Neutrophils # Seg Neutrophils # Man Lymphocytes # (Manual) APTT POC ABG pH ABG pH POC ABG pCO2 POC ABG pO2 ABG pO2 ABG HCO3 ABG Base Excess ABG Hemoglobin VBG pH Oxyhemoglobin Sodium Potassium Chloride Carbon Dioxide BUN Creatinine Glucose POC Glucose 131 H 193 H 215 H Lactic Acid Calcium AST ALT Alkaline Phosphatase CK-MB (CK-2) CK-MB (CK-2) Rel Index Total Protein Albumin TSH Urine WBC (Auto) Salicylates 01/15/17 01/15/17 01/15/17 11:49 17:47 21:33 WBC RBC Hgb Hct MCV MCH RDW Plt Count Lymph % (Auto) Collin % (Auto) Eos % (Auto) Seg Neutrophils % Seg Neuts % (Manual) Lymphocytes % (Manual) Seg Neutrophils # Seg Neutrophils # Man Lymphocytes # (Manual) APTT POC ABG pH ABG pH POC ABG pCO2 POC ABG pO2 ABG pO2 ABG HCO3 ABG Base Excess ABG Hemoglobin VBG pH Oxyhemoglobin Sodium Potassium Chloride Carbon Dioxide BUN Creatinine Glucose POC Glucose 121 H 211 H 275 H Lactic Acid Calcium AST ALT Alkaline Phosphatase CK-MB (CK-2) CK-MB (CK-2) Rel Index Total Protein Albumin TSH Urine WBC (Auto) Salicylates 01/16/17 01/16/17 01/16/17 04:30 05:28 13:45 WBC RBC Hgb Hct MCV MCH RDW Plt Count Lymph % (Auto) Collin % (Auto) Eos % (Auto) Seg Neutrophils % Seg Neuts % (Manual) Lymphocytes % (Manual) Seg Neutrophils # Seg Neutrophils # Man Lymphocytes # (Manual) APTT POC ABG pH ABG pH 7.457 H POC ABG pCO2 POC ABG pO2 ABG pO2 55.1 L ABG HCO3 19.4 L ABG Base Excess -4.0 L ABG Hemoglobin 6.8 L VBG pH Oxyhemoglobin 94.9 L Sodium Potassium Chloride Carbon Dioxide BUN Creatinine Glucose POC Glucose 271 H 236 H Lactic Acid Calcium AST ALT Alkaline Phosphatase CK-MB (CK-2) CK-MB (CK-2) Rel Index Total Protein Albumin TSH Urine WBC (Auto) Salicylates 01/16/17 01/17/17 01/17/17 21:39 04:10 04:10 WBC 4.4 L RBC 2.98 L Hgb 7.7 L Hct 23.3 L MCV 78 L MCH 26 L RDW 18.1 H Plt Count Lymph % (Auto) Collin % (Auto) Eos % (Auto) Seg Neutrophils % Seg Neuts % (Manual) Lymphocytes % (Manual) Seg Neutrophils # Seg Neutrophils # Man Lymphocytes # (Manual) APTT POC ABG pH ABG pH POC ABG pCO2 POC ABG pO2 ABG pO2 ABG HCO3 ABG Base Excess ABG Hemoglobin VBG pH Oxyhemoglobin Sodium Potassium 3.3 L Chloride 108.7 H Carbon Dioxide 20 L BUN 8 L Creatinine Glucose 202 H POC Glucose 258 H Lactic Acid Calcium 7.6 L AST ALT Alkaline Phosphatase CK-MB (CK-2) CK-MB (CK-2) Rel Index Total Protein Albumin TSH Urine WBC (Auto) Salicylates 01/17/17 01/17/17 01/17/17 04:35 12:23 16:01 WBC RBC Hgb Hct MCV MCH RDW Plt Count Lymph % (Auto) Collin % (Auto) Eos % (Auto) Seg Neutrophils % Seg Neuts % (Manual) Lymphocytes % (Manual) Seg Neutrophils # Seg Neutrophils # Man Lymphocytes # (Manual) APTT POC ABG pH ABG pH POC ABG pCO2 POC ABG pO2 ABG pO2 160.3 H ABG HCO3 ABG Base Excess -2.3 L ABG Hemoglobin 7.9 L VBG pH Oxyhemoglobin Sodium Potassium Chloride Carbon Dioxide BUN Creatinine Glucose POC Glucose 321 H 239 H Lactic Acid Calcium AST ALT Alkaline Phosphatase CK-MB (CK-2) CK-MB (CK-2) Rel Index Total Protein Albumin TSH Urine WBC (Auto) Salicylates 01/18/17 01/18/17 01/18/17 05:07 12:09 17:54 WBC RBC Hgb Hct MCV MCH RDW Plt Count Lymph % (Auto) Collin % (Auto) Eos % (Auto) Seg Neutrophils % Seg Neuts % (Manual) Lymphocytes % (Manual) Seg Neutrophils # Seg Neutrophils # Man Lymphocytes # (Manual) APTT POC ABG pH ABG pH POC ABG pCO2 POC ABG pO2 ABG pO2 ABG HCO3 ABG Base Excess ABG Hemoglobin VBG pH Oxyhemoglobin Sodium Potassium Chloride Carbon Dioxide BUN Creatinine Glucose POC Glucose 155 H 203 H 132 H Lactic Acid Calcium AST ALT Alkaline Phosphatase CK-MB (CK-2) CK-MB (CK-2) Rel Index Total Protein Albumin TSH Urine WBC (Auto) Salicylates 01/18/17 01/19/17 01/19/17 23:43 04:28 12:11 WBC RBC Hgb Hct MCV MCH RDW Plt Count Lymph % (Auto) Collin % (Auto) Eos % (Auto) Seg Neutrophils % Seg Neuts % (Manual) Lymphocytes % (Manual) Seg Neutrophils # Seg Neutrophils # Man Lymphocytes # (Manual) APTT POC ABG pH ABG pH POC ABG pCO2 POC ABG pO2 ABG pO2 ABG HCO3 ABG Base Excess ABG Hemoglobin VBG pH Oxyhemoglobin Sodium Potassium Chloride Carbon Dioxide BUN Creatinine Glucose POC Glucose 125 H 182 H 153 H Lactic Acid Calcium AST ALT Alkaline Phosphatase CK-MB (CK-2) CK-MB (CK-2) Rel Index Total Protein Albumin TSH Urine WBC (Auto) Salicylates 01/19/17 01/20/17 01/20/17 17:23 00:12 05:44 WBC RBC Hgb Hct MCV MCH RDW Plt Count Lymph % (Auto) Collin % (Auto) Eos % (Auto) Seg Neutrophils % Seg Neuts % (Manual) Lymphocytes % (Manual) Seg Neutrophils # Seg Neutrophils # Man Lymphocytes # (Manual) APTT POC ABG pH ABG pH POC ABG pCO2 POC ABG pO2 ABG pO2 ABG HCO3 ABG Base Excess ABG Hemoglobin VBG pH Oxyhemoglobin Sodium Potassium Chloride Carbon Dioxide BUN Creatinine Glucose POC Glucose 66 L 139 H 176 H Lactic Acid Calcium AST ALT Alkaline Phosphatase CK-MB (CK-2) CK-MB (CK-2) Rel Index Total Protein Albumin TSH Urine WBC (Auto) Salicylates 01/20/17 01/20/17 01/20/17 11:48 17:42 23:43 WBC RBC Hgb Hct MCV MCH RDW Plt Count Lymph % (Auto) Collin % (Auto) Eos % (Auto) Seg Neutrophils % Seg Neuts % (Manual) Lymphocytes % (Manual) Seg Neutrophils # Seg Neutrophils # Man Lymphocytes # (Manual) APTT POC ABG pH ABG pH POC ABG pCO2 POC ABG pO2 ABG pO2 ABG HCO3 ABG Base Excess ABG Hemoglobin VBG pH Oxyhemoglobin Sodium Potassium Chloride Carbon Dioxide BUN Creatinine Glucose POC Glucose 218 H 132 H 178 H Lactic Acid Calcium AST ALT Alkaline Phosphatase CK-MB (CK-2) CK-MB (CK-2) Rel Index Total Protein Albumin TSH Urine WBC (Auto) Salicylates 01/21/17 01/21/17 01/21/17 05:34 11:17 23:37 WBC RBC Hgb Hct MCV MCH RDW Plt Count Lymph % (Auto) Collin % (Auto) Eos % (Auto) Seg Neutrophils % Seg Neuts % (Manual) Lymphocytes % (Manual) Seg Neutrophils # Seg Neutrophils # Man Lymphocytes # (Manual) APTT POC ABG pH ABG pH POC ABG pCO2 POC ABG pO2 ABG pO2 ABG HCO3 ABG Base Excess ABG Hemoglobin VBG pH Oxyhemoglobin Sodium Potassium Chloride Carbon Dioxide BUN Creatinine Glucose POC Glucose 106 H 213 H 140 H Lactic Acid Calcium AST ALT Alkaline Phosphatase CK-MB (CK-2) CK-MB (CK-2) Rel Index Total Protein Albumin TSH Urine WBC (Auto) Salicylates 01/22/17 01/22/17 01/22/17 04:00 04:00 04:58 WBC RBC 3.26 L Hgb 8.3 L Hct 25.5 L MCV 78 L MCH 25 L RDW 17.9 H Plt Count Lymph % (Auto) Collin % (Auto) 7.9 H Eos % (Auto) 6.2 H Seg Neutrophils % Seg Neuts % (Manual) Lymphocytes % (Manual) Seg Neutrophils # Seg Neutrophils # Man Lymphocytes # (Manual) APTT POC ABG pH ABG pH POC ABG pCO2 POC ABG pO2 ABG pO2 ABG HCO3 ABG Base Excess ABG Hemoglobin VBG pH Oxyhemoglobin Sodium Potassium Chloride 95.5 L Carbon Dioxide 31 H D BUN Creatinine Glucose 134 H POC Glucose 146 H Lactic Acid Calcium AST 44 H ALT Alkaline Phosphatase 379 H CK-MB (CK-2) CK-MB (CK-2) Rel Index Total Protein Albumin 2.7 L TSH Urine WBC (Auto) Salicylates 01/22/17 01/22/17 01/22/17 12:12 18:12 23:39 WBC RBC Hgb Hct MCV MCH RDW Plt Count Lymph % (Auto) Collin % (Auto) Eos % (Auto) Seg Neutrophils % Seg Neuts % (Manual) Lymphocytes % (Manual) Seg Neutrophils # Seg Neutrophils # Man Lymphocytes # (Manual) APTT POC ABG pH ABG pH POC ABG pCO2 POC ABG pO2 ABG pO2 ABG HCO3 ABG Base Excess ABG Hemoglobin VBG pH Oxyhemoglobin Sodium Potassium Chloride Carbon Dioxide BUN Creatinine Glucose POC Glucose 255 H 182 H 134 H Lactic Acid Calcium AST ALT Alkaline Phosphatase CK-MB (CK-2) CK-MB (CK-2) Rel Index Total Protein Albumin TSH Urine WBC (Auto) Salicylates 01/23/17 01/23/17 01/23/17 04:43 12:12 17:36 WBC RBC Hgb Hct MCV MCH RDW Plt Count Lymph % (Auto) Collin % (Auto) Eos % (Auto) Seg Neutrophils % Seg Neuts % (Manual) Lymphocytes % (Manual) Seg Neutrophils # Seg Neutrophils # Man Lymphocytes # (Manual) APTT POC ABG pH ABG pH POC ABG pCO2 POC ABG pO2 ABG pO2 ABG HCO3 ABG Base Excess ABG Hemoglobin VBG pH Oxyhemoglobin Sodium Potassium Chloride Carbon Dioxide BUN Creatinine Glucose POC Glucose 218 H 128 H 156 H Lactic Acid Calcium AST ALT Alkaline Phosphatase CK-MB (CK-2) CK-MB (CK-2) Rel Index Total Protein Albumin TSH Urine WBC (Auto) Salicylates 01/24/17 01/24/17 01/24/17 00:08 05:16 11:40 WBC RBC Hgb Hct MCV MCH RDW Plt Count Lymph % (Auto) [place]lin % (Auto) Eos % (Auto) Seg Neutrophils % Seg Neuts % (Manual) Lymphocytes % (Manual) Seg Neutrophils # Seg Neutrophils # Man Lymphocytes # (Manual) APTT POC ABG pH ABG pH POC ABG pCO2 POC ABG pO2 ABG pO2 ABG HCO3 ABG Base Excess ABG Hemoglobin VBG pH Oxyhemoglobin Sodium Potassium Chloride Carbon Dioxide BUN Creatinine Glucose POC Glucose 129 H 169 H 187 H Lactic Acid Calcium AST ALT Alkaline Phosphatase CK-MB (CK-2) CK-MB (CK-2) Rel Index Total Protein Albumin TSH Urine WBC (Auto) Salicylates 01/24/17 01/24/17 01/25/17 17:43 23:23 04:56 WBC RBC Hgb Hct MCV MCH RDW Plt Count Lymph % (Auto) [place]lin % (Auto) Eos % (Auto) Seg Neutrophils % Seg Neuts % (Manual) Lymphocytes % (Manual) Seg Neutrophils # Seg Neutrophils # Man Lymphocytes # (Manual) APTT POC ABG pH ABG pH POC ABG pCO2 POC ABG pO2 ABG pO2 ABG HCO3 ABG Base Excess ABG Hemoglobin VBG pH Oxyhemoglobin Sodium Potassium Chloride Carbon Dioxide BUN Creatinine Glucose POC Glucose 215 H 222 H 210 H Lactic Acid Calcium AST ALT Alkaline Phosphatase CK-MB (CK-2) CK-MB (CK-2) Rel Index Total Protein Albumin TSH Urine WBC (Auto) Salicylates 01/25/17 01/25/17 01/26/17 11:52 17:37 00:02 WBC RBC Hgb Hct MCV MCH RDW Plt Count Lymph % (Auto) [place] % (Auto) Eos % (Auto) Seg Neutrophils % Seg Neuts % (Manual) Lymphocytes % (Manual) Seg Neutrophils # Seg Neutrophils # Man Lymphocytes # (Manual) APTT POC ABG pH ABG pH POC ABG pCO2 POC ABG pO2 ABG pO2 ABG HCO3 ABG Base Excess ABG Hemoglobin VBG pH Oxyhemoglobin Sodium Potassium Chloride Carbon Dioxide BUN Creatinine Glucose POC Glucose 284 H 218 H 192 H Lactic Acid Calcium AST ALT Alkaline Phosphatase CK-MB (CK-2) CK-MB (CK-2) Rel Index Total Protein Albumin TSH Urine WBC (Auto) Salicylates 01/26/17 01/26/17 01/26/17 05:33 12:17 17:50 WBC RBC Hgb Hct MCV MCH RDW Plt Count Lymph % (Auto) [place] % (Auto) Eos % (Auto) Seg Neutrophils % Seg Neuts % (Manual) Lymphocytes % (Manual) Seg Neutrophils # Seg Neutrophils # Man Lymphocytes # (Manual) APTT POC ABG pH ABG pH POC ABG pCO2 POC ABG pO2 ABG pO2 ABG HCO3 ABG Base Excess ABG Hemoglobin VBG pH Oxyhemoglobin Sodium Potassium Chloride Carbon Dioxide BUN Creatinine Glucose POC Glucose 199 H 227 H 229 H Lactic Acid Calcium AST ALT Alkaline Phosphatase CK-MB (CK-2) CK-MB (CK-2) Rel Index Total Protein Albumin TSH Urine WBC (Auto) Salicylates 01/26/17 01/27/17 01/27/17 23:57 05:31 11:42 WBC RBC Hgb Hct MCV MCH RDW Plt Count Lymph % (Auto) [place] % (Auto) Eos % (Auto) Seg Neutrophils % Seg Neuts % (Manual) Lymphocytes % (Manual) Seg Neutrophils # Seg Neutrophils # Man Lymphocytes # (Manual) APTT POC ABG pH ABG pH POC ABG pCO2 POC ABG pO2 ABG pO2 ABG HCO3 ABG Base Excess ABG Hemoglobin VBG pH Oxyhemoglobin Sodium Potassium Chloride Carbon Dioxide BUN Creatinine Glucose POC Glucose 186 H 285 H 260 H Lactic Acid Calcium AST ALT Alkaline Phosphatase CK-MB (CK-2) CK-MB (CK-2) Rel Index Total Protein Albumin TSH Urine WBC (Auto) Salicylates 01/27/17 01/27/17 01/27/17 17:47 23:58 Unknown WBC 12.1 H RBC 3.28 L Hgb 8.5 L Hct 25.5 L MCV 78 L MCH 26 L RDW 16.8 H Plt Count 601 H Lymph % (Auto) [place] % (Auto) Eos % (Auto) Seg Neutrophils % Seg Neuts % (Manual) Lymphocytes % (Manual) Seg Neutrophils # Seg Neutrophils # Man Lymphocytes # (Manual) APTT POC ABG pH ABG pH POC ABG pCO2 POC ABG pO2 ABG pO2 ABG HCO3 ABG Base Excess ABG Hemoglobin VBG pH Oxyhemoglobin Sodium Potassium Chloride Carbon Dioxide BUN Creatinine Glucose POC Glucose 329 H 225 H Lactic Acid Calcium AST ALT Alkaline Phosphatase CK-MB (CK-2) CK-MB (CK-2) Rel Index Total Protein Albumin TSH Urine WBC (Auto) Salicylates 01/27/17 01/28/17 01/28/17 Unknown 03:44 03:44 WBC RBC 3.14 L Hgb 8.2 L Hct 24.1 L MCV 77 L MCH 26 L RDW 16.9 H Plt Count 567 H Lymph % (Auto) [place] % (Auto) Eos % (Auto) Seg Neutrophils % Seg Neuts % (Manual) Lymphocytes % (Manual) Seg Neutrophils # Seg Neutrophils # Man Lymphocytes # (Manual) APTT POC ABG pH ABG pH POC ABG pCO2 POC ABG pO2 ABG pO2 ABG HCO3 ABG Base Excess ABG Hemoglobin VBG pH Oxyhemoglobin Sodium 128 L Potassium 5.4 H Chloride 87.5 L Carbon Dioxide BUN 44 H 42 H Creatinine Glucose 250 H 128 H POC Glucose Lactic Acid Calcium AST ALT Alkaline Phosphatase CK-MB (CK-2) CK-MB (CK-2) Rel Index Total Protein Albumin TSH Urine WBC (Auto) Salicylates 01/28/17 01/28/17 01/28/17 11:43 16:47 17:52 WBC RBC Hgb Hct MCV MCH RDW Plt Count Lymph % (Auto) [place] % (Auto) Eos % (Auto) Seg Neutrophils % Seg Neuts % (Manual) Lymphocytes % (Manual) Seg Neutrophils # Seg Neutrophils # Man Lymphocytes # (Manual) APTT POC ABG pH ABG pH POC ABG pCO2 POC ABG pO2 ABG pO2 ABG HCO3 ABG Base Excess ABG Hemoglobin VBG pH Oxyhemoglobin Sodium Potassium Chloride Carbon Dioxide BUN Creatinine Glucose POC Glucose 351 H 249 H Lactic Acid Calcium AST ALT Alkaline Phosphatase CK-MB (CK-2) CK-MB (CK-2) Rel Index Total Protein Albumin TSH Urine WBC (Auto) > 182.0 H Salicylates 01/29/17 01/29/17 01/29/17 05:25 05:25 09:32 WBC 13.6 H RBC 3.25 L Hgb 8.3 L Hct 25.1 L MCV 77 L MCH 26 L RDW 16.8 H Plt Count 514 H Lymph % (Auto) [place] % (Auto) Eos % (Auto) Seg Neutrophils % Seg Neuts % (Manual) Lymphocytes % (Manual) Seg Neutrophils # Seg Neutrophils # Man Lymphocytes # (Manual) APTT POC ABG pH ABG pH POC ABG pCO2 POC ABG pO2 ABG pO2 ABG HCO3 ABG Base Excess ABG Hemoglobin VBG pH Oxyhemoglobin Sodium Potassium Chloride 97.8 L Carbon Dioxide BUN 34 H Creatinine Glucose 222 H POC Glucose Lactic Acid 2.50 H* Calcium AST ALT Alkaline Phosphatase CK-MB (CK-2) CK-MB (CK-2) Rel Index Total Protein Albumin TSH Urine WBC (Auto) Salicylates 01/29/17 01/29/17 01/29/17 11:56 18:11 23:55 WBC RBC Hgb Hct MCV MCH RDW Plt Count Lymph % (Auto) [place] % (Auto) Eos % (Auto) Seg Neutrophils % Seg Neuts % (Manual) Lymphocytes % (Manual) Seg Neutrophils # Seg Neutrophils # Man Lymphocytes # (Manual) APTT POC ABG pH ABG pH POC ABG pCO2 POC ABG pO2 ABG pO2 ABG HCO3 ABG Base Excess ABG Hemoglobin VBG pH Oxyhemoglobin Sodium Potassium Chloride Carbon Dioxide BUN Creatinine Glucose POC Glucose 261 H 215 H 176 H Lactic Acid Calcium AST ALT Alkaline Phosphatase CK-MB (CK-2) CK-MB (CK-2) Rel Index Total Protein Albumin TSH Urine WBC (Auto) Salicylates 01/30/17 01/30/17 01/30/17 05:31 05:31 05:34 WBC 15.2 H RBC 3.09 L Hgb 7.9 L Hct 23.9 L MCV 77 L MCH 26 L RDW 16.9 H Plt Count 569 H Lymph % (Auto) [place] % (Auto) Eos % (Auto) Seg Neutrophils % Seg Neuts % (Manual) Lymphocytes % (Manual) Seg Neutrophils # Seg Neutrophils # Man Lymphocytes # (Manual) APTT POC ABG pH ABG pH POC ABG pCO2 POC ABG pO2 ABG pO2 ABG HCO3 ABG Base Excess ABG Hemoglobin VBG pH Oxyhemoglobin Sodium Potassium Chloride Carbon Dioxide BUN 24 H Creatinine Glucose 235 H POC Glucose 243 H Lactic Acid Calcium AST ALT Alkaline Phosphatase CK-MB (CK-2) CK-MB (CK-2) Rel Index Total Protein Albumin TSH Urine WBC (Auto) Salicylates 01/30/17 01/30/17 01/30/17 11:38 17:58 23:29 WBC RBC Hgb Hct MCV MCH RDW Plt Count Lymph % (Auto) [place] % (Auto) Eos % (Auto) Seg Neutrophils % Seg Neuts % (Manual) Lymphocytes % (Manual) Seg Neutrophils # Seg Neutrophils # Man Lymphocytes # (Manual) APTT POC ABG pH ABG pH POC ABG pCO2 POC ABG pO2 ABG pO2 ABG HCO3 ABG Base Excess ABG Hemoglobin VBG pH Oxyhemoglobin Sodium Potassium Chloride Carbon Dioxide BUN Creatinine Glucose POC Glucose 298 H 208 H 245 H Lactic Acid Calcium AST ALT Alkaline Phosphatase CK-MB (CK-2) CK-MB (CK-2) Rel Index Total Protein Albumin TSH Urine WBC (Auto) Salicylates 01/31/17 01/31/17 01/31/17 04:39 04:39 05:57 WBC 11.4 H RBC 3.22 L Hgb 8.2 L Hct 24.9 L MCV 78 L MCH 25 L RDW 17.2 H Plt Count 576 H Lymph % (Auto) [place] % (Auto) Eos % (Auto) Seg Neutrophils % Seg Neuts % (Manual) Lymphocytes % (Manual) Seg Neutrophils # Seg Neutrophils # Man Lymphocytes # (Manual) APTT POC ABG pH ABG pH POC ABG pCO2 POC ABG pO2 ABG pO2 ABG HCO3 ABG Base Excess ABG Hemoglobin VBG pH Oxyhemoglobin Sodium Potassium Chloride Carbon Dioxide BUN Creatinine 0.7 L Glucose 223 H POC Glucose 264 H Lactic Acid Calcium AST ALT Alkaline Phosphatase CK-MB (CK-2) CK-MB (CK-2) Rel Index Total Protein Albumin TSH Urine WBC (Auto) Salicylates 01/31/17 01/31/17 01/31/17 12:23 17:41 18:55 WBC RBC Hgb Hct MCV MCH RDW Plt Count Lymph % (Auto) [place] % (Auto) Eos % (Auto) Seg Neutrophils % Seg Neuts % (Manual) Lymphocytes % (Manual) Seg Neutrophils # Seg Neutrophils # Man Lymphocytes # (Manual) APTT POC ABG pH ABG pH POC ABG pCO2 32.8 L POC ABG pO2 ABG pO2 ABG HCO3 ABG Base Excess ABG Hemoglobin VBG pH Oxyhemoglobin Sodium Potassium Chloride Carbon Dioxide BUN Creatinine Glucose POC Glucose 252 H 208 H Lactic Acid Calcium AST ALT Alkaline Phosphatase CK-MB (CK-2) CK-MB (CK-2) Rel Index Total Protein Albumin TSH Urine WBC (Auto) Salicylates 01/31/17 02/01/17 02/01/17 22:59 03:38 03:38 WBC RBC 2.81 L Hgb 7.4 L Hct 22.1 L MCV 79 L MCH 27 L RDW 17.0 H Plt Count 540 H Lymph % (Auto) [place] % (Auto) Eos % (Auto) Seg Neutrophils % Seg Neuts % (Manual) Lymphocytes % (Manual) Seg Neutrophils # Seg Neutrophils # Man Lymphocytes # (Manual) APTT POC ABG pH ABG pH POC ABG pCO2 POC ABG pO2 ABG pO2 ABG HCO3 ABG Base Excess ABG Hemoglobin VBG pH Oxyhemoglobin Sodium Potassium Chloride Carbon Dioxide 21 L BUN Creatinine 0.7 L Glucose POC Glucose 40 L Lactic Acid Calcium AST ALT Alkaline Phosphatase CK-MB (CK-2) CK-MB (CK-2) Rel Index Total Protein Albumin TSH Urine WBC (Auto) Salicylates 02/01/17 02/01/17 02/01/17 05:17 12:19 16:44 WBC RBC Hgb Hct MCV MCH RDW Plt Count Lymph % (Auto) [place] % (Auto) Eos % (Auto) Seg Neutrophils % Seg Neuts % (Manual) Lymphocytes % (Manual) Seg Neutrophils # Seg Neutrophils # Man Lymphocytes # (Manual) APTT POC ABG pH ABG pH POC ABG pCO2 POC ABG pO2 ABG pO2 ABG HCO3 ABG Base Excess ABG Hemoglobin VBG pH Oxyhemoglobin Sodium Potassium Chloride Carbon Dioxide BUN Creatinine Glucose POC Glucose 140 H 213 H 172 H Lactic Acid Calcium AST ALT Alkaline Phosphatase CK-MB (CK-2) CK-MB (CK-2) Rel Index Total Protein Albumin TSH Urine WBC (Auto) Salicylates 02/01/17 02/02/17 02/02/17 23:59 05:14 11:24 WBC RBC Hgb Hct MCV MCH RDW Plt Count Lymph % (Auto) [place] % (Auto) Eos % (Auto) Seg Neutrophils % Seg Neuts % (Manual) Lymphocytes % (Manual) Seg Neutrophils # Seg Neutrophils # Man Lymphocytes # (Manual) APTT POC ABG pH ABG pH POC ABG pCO2 POC ABG pO2 ABG pO2 ABG HCO3 ABG Base Excess ABG Hemoglobin VBG pH Oxyhemoglobin Sodium Potassium Chloride Carbon Dioxide BUN Creatinine Glucose POC Glucose 181 H 194 H 209 H Lactic Acid Calcium AST ALT Alkaline Phosphatase CK-MB (CK-2) CK-MB (CK-2) Rel Index Total Protein Albumin TSH Urine WBC (Auto) Salicylates 02/02/17 02/02/17 02/02/17 11:46 11:46 17:47 WBC RBC 2.94 L Hgb 7.5 L Hct 23.0 L MCV 78 L MCH 25 L RDW 16.9 H Plt Count 520 H Lymph % (Auto) [place] % (Auto) Eos % (Auto) Seg Neutrophils % Seg Neuts % (Manual) Lymphocytes % (Manual) Seg Neutrophils # Seg Neutrophils # Man Lymphocytes # (Manual) APTT POC ABG pH ABG pH POC ABG pCO2 POC ABG pO2 ABG pO2 ABG HCO3 ABG Base Excess ABG Hemoglobin VBG pH Oxyhemoglobin Sodium Potassium Chloride Carbon Dioxide BUN Creatinine 0.6 L Glucose 189 H POC Glucose 147 H Lactic Acid Calcium 8.1 L AST ALT Alkaline Phosphatase CK-MB (CK-2) CK-MB (CK-2) Rel Index Total Protein Albumin TSH Urine WBC (Auto) Salicylates 02/02/17 02/03/17 02/03/17 23:32 05:53 11:19 WBC RBC Hgb Hct MCV MCH RDW Plt Count Lymph % (Auto) [place] % (Auto) Eos % (Auto) Seg Neutrophils % Seg Neuts % (Manual) Lymphocytes % (Manual) Seg Neutrophils # Seg Neutrophils # Man Lymphocytes # (Manual) APTT POC ABG pH ABG pH POC ABG pCO2 POC ABG pO2 ABG pO2 ABG HCO3 ABG Base Excess ABG Hemoglobin VBG pH Oxyhemoglobin Sodium Potassium Chloride Carbon Dioxide BUN Creatinine Glucose POC Glucose 176 H 224 H 228 H Lactic Acid Calcium AST ALT Alkaline Phosphatase CK-MB (CK-2) CK-MB (CK-2) Rel Index Total Protein Albumin TSH Urine WBC (Auto) Salicylates 02/03/17 02/03/17 02/04/17 16:59 23:38 05:45 WBC RBC Hgb Hct MCV MCH RDW Plt Count Lymph % (Auto) [place] % (Auto) Eos % (Auto) Seg Neutrophils % Seg Neuts % (Manual) Lymphocytes % (Manual) Seg Neutrophils # Seg Neutrophils # Man Lymphocytes # (Manual) APTT POC ABG pH ABG pH POC ABG pCO2 POC ABG pO2 ABG pO2 ABG HCO3 ABG Base Excess ABG Hemoglobin VBG pH Oxyhemoglobin Sodium Potassium Chloride Carbon Dioxide BUN Creatinine Glucose POC Glucose 189 H 191 H 251 H Lactic Acid Calcium AST ALT Alkaline Phosphatase CK-MB (CK-2) CK-MB (CK-2) Rel Index Total Protein Albumin TSH Urine WBC (Auto) Salicylates 02/04/17 02/04/17 02/05/17 11:20 17:20 00:17 WBC RBC Hgb Hct MCV MCH RDW Plt Count Lymph % (Auto) [place] % (Auto) Eos % (Auto) Seg Neutrophils % Seg Neuts % (Manual) Lymphocytes % (Manual) Seg Neutrophils # Seg Neutrophils # Man Lymphocytes # (Manual) APTT POC ABG pH ABG pH POC ABG pCO2 POC ABG pO2 ABG pO2 ABG HCO3 ABG Base Excess ABG Hemoglobin VBG pH Oxyhemoglobin Sodium Potassium Chloride Carbon Dioxide BUN Creatinine Glucose POC Glucose 243 H 163 H 200 H Lactic Acid Calcium AST ALT Alkaline Phosphatase CK-MB (CK-2) CK-MB (CK-2) Rel Index Total Protein Albumin TSH Urine WBC (Auto) Salicylates 02/05/17 02/05/17 02/05/17 05:38 12:38 16:29 WBC RBC Hgb Hct MCV MCH RDW Plt Count Lymph % (Auto) [place] % (Auto) Eos % (Auto) Seg Neutrophils % Seg Neuts % (Manual) Lymphocytes % (Manual) Seg Neutrophils # Seg Neutrophils # Man Lymphocytes # (Manual) APTT POC ABG pH ABG pH POC ABG pCO2 POC ABG pO2 ABG pO2 ABG HCO3 ABG Base Excess ABG Hemoglobin VBG pH Oxyhemoglobin Sodium Potassium Chloride Carbon Dioxide BUN Creatinine Glucose POC Glucose 248 H 241 H 257 H Lactic Acid Calcium AST ALT Alkaline Phosphatase CK-MB (CK-2) CK-MB (CK-2) Rel Index Total Protein Albumin TSH Urine WBC (Auto) Salicylates 02/05/17 02/06/17 02/06/17 23:56 05:30 11:50 WBC RBC Hgb Hct MCV MCH RDW Plt Count Lymph % (Auto) [place] % (Auto) Eos % (Auto) Seg Neutrophils % Seg Neuts % (Manual) Lymphocytes % (Manual) Seg Neutrophils # Seg Neutrophils # Man Lymphocytes # (Manual) APTT POC ABG pH ABG pH POC ABG pCO2 POC ABG pO2 ABG pO2 ABG HCO3 ABG Base Excess ABG Hemoglobin VBG pH Oxyhemoglobin Sodium Potassium Chloride Carbon Dioxide BUN Creatinine Glucose POC Glucose 258 H 120 H 254 H Lactic Acid Calcium AST ALT Alkaline Phosphatase CK-MB (CK-2) CK-MB (CK-2) Rel Index Total Protein Albumin TSH Urine WBC (Auto) Salicylates 02/06/17 02/06/17 02/07/17 17:11 23:50 05:22 WBC RBC Hgb Hct MCV MCH RDW Plt Count Lymph % (Auto) [place] % (Auto) Eos % (Auto) Seg Neutrophils % Seg Neuts % (Manual) Lymphocytes % (Manual) Seg Neutrophils # Seg Neutrophils # Man Lymphocytes # (Manual) APTT POC ABG pH ABG pH POC ABG pCO2 POC ABG pO2 ABG pO2 ABG HCO3 ABG Base Excess ABG Hemoglobin VBG pH Oxyhemoglobin Sodium Potassium Chloride Carbon Dioxide BUN Creatinine Glucose POC Glucose 149 H 240 H 258 H Lactic Acid Calcium AST ALT Alkaline Phosphatase CK-MB (CK-2) CK-MB (CK-2) Rel Index Total Protein Albumin TSH Urine WBC (Auto) Salicylates 02/07/17 02/07/17 02/07/17 11:15 18:33 23:59 WBC RBC Hgb Hct MCV MCH RDW Plt Count Lymph % (Auto) [place] % (Auto) Eos % (Auto) Seg Neutrophils % Seg Neuts % (Manual) Lymphocytes % (Manual) Seg Neutrophils # Seg Neutrophils # Man Lymphocytes # (Manual) APTT POC ABG pH ABG pH POC ABG pCO2 POC ABG pO2 ABG pO2 ABG HCO3 ABG Base Excess ABG Hemoglobin VBG pH Oxyhemoglobin Sodium Potassium Chloride Carbon Dioxide BUN Creatinine Glucose POC Glucose 239 H 176 H 186 H Lactic Acid Calcium AST ALT Alkaline Phosphatase CK-MB (CK-2) CK-MB (CK-2) Rel Index Total Protein Albumin TSH Urine WBC (Auto) Salicylates 02/08/17 02/08/17 02/08/17 06:15 11:55 16:55 WBC RBC Hgb Hct MCV MCH RDW Plt Count Lymph % (Auto) [place] % (Auto) Eos % (Auto) Seg Neutrophils % Seg Neuts % (Manual) Lymphocytes % (Manual) Seg Neutrophils # Seg Neutrophils # Man Lymphocytes # (Manual) APTT POC ABG pH ABG pH POC ABG pCO2 POC ABG pO2 ABG pO2 ABG HCO3 ABG Base Excess ABG Hemoglobin VBG pH Oxyhemoglobin Sodium Potassium Chloride Carbon Dioxide BUN Creatinine Glucose POC Glucose 195 H 129 H 246 H Lactic Acid Calcium AST ALT Alkaline Phosphatase CK-MB (CK-2) CK-MB (CK-2) Rel Index Total Protein Albumin TSH Urine WBC (Auto) Salicylates 02/08/17 02/09/17 02/09/17 23:51 05:51 07:24 WBC 14.7 H RBC 3.39 L Hgb 8.9 L Hct 26.4 L MCV 78 L MCH 26 L RDW 18.4 H Plt Count 670 H Lymph % (Auto) 11.8 L [place] % (Auto) Eos % (Auto) Seg Neutrophils % 81.2 H Seg Neuts % (Manual) Lymphocytes % (Manual) Seg Neutrophils # 11.9 H Seg Neutrophils # Man Lymphocytes # (Manual) APTT POC ABG pH ABG pH POC ABG pCO2 POC ABG pO2 ABG pO2 ABG HCO3 ABG Base Excess ABG Hemoglobin VBG pH Oxyhemoglobin Sodium Potassium Chloride Carbon Dioxide BUN Creatinine Glucose POC Glucose 262 H 295 H Lactic Acid Calcium AST ALT Alkaline Phosphatase CK-MB (CK-2) CK-MB (CK-2) Rel Index Total Protein Albumin TSH Urine WBC (Auto) Salicylates 02/09/17 02/09/17 02/09/17 07:24 12:08 18:39 WBC RBC Hgb Hct MCV MCH RDW Plt Count Lymph % (Auto) [place] % (Auto) Eos % (Auto) Seg Neutrophils % Seg Neuts % (Manual) Lymphocytes % (Manual) Seg Neutrophils # Seg Neutrophils # Man Lymphocytes # (Manual) APTT POC ABG pH ABG pH POC ABG pCO2 POC ABG pO2 ABG pO2 ABG HCO3 ABG Base Excess ABG Hemoglobin VBG pH Oxyhemoglobin Sodium Potassium Chloride 95.5 L Carbon Dioxide BUN 52 H Creatinine Glucose 277 H POC Glucose 236 H 151 H Lactic Acid Calcium AST ALT Alkaline Phosphatase CK-MB (CK-2) CK-MB (CK-2) Rel Index Total Protein Albumin TSH Urine WBC (Auto) Salicylates 02/10/17 02/10/17 02/10/17 00:01 05:44 11:21 WBC RBC Hgb Hct MCV MCH RDW Plt Count Lymph % (Auto) [place] % (Auto) Eos % (Auto) Seg Neutrophils % Seg Neuts % (Manual) Lymphocytes % (Manual) Seg Neutrophils # Seg Neutrophils # Man Lymphocytes # (Manual) APTT POC ABG pH ABG pH POC ABG pCO2 POC ABG pO2 ABG pO2 ABG HCO3 ABG Base Excess ABG Hemoglobin VBG pH Oxyhemoglobin Sodium Potassium Chloride Carbon Dioxide BUN Creatinine Glucose POC Glucose 210 H 201 H 233 H Lactic Acid Calcium AST ALT Alkaline Phosphatase CK-MB (CK-2) CK-MB (CK-2) Rel Index Total Protein Albumin TSH Urine WBC (Auto) Salicylates 02/10/17 02/10/17 02/11/17 17:29 23:56 05:24 WBC RBC Hgb Hct MCV MCH RDW Plt Count Lymph % (Auto) [place] % (Auto) Eos % (Auto) Seg Neutrophils % Seg Neuts % (Manual) Lymphocytes % (Manual) Seg Neutrophils # Seg Neutrophils # Man Lymphocytes # (Manual) APTT POC ABG pH ABG pH POC ABG pCO2 POC ABG pO2 ABG pO2 ABG HCO3 ABG Base Excess ABG Hemoglobin VBG pH Oxyhemoglobin Sodium Potassium Chloride Carbon Dioxide BUN Creatinine Glucose POC Glucose 167 H 191 H 135 H Lactic Acid Calcium AST ALT Alkaline Phosphatase CK-MB (CK-2) CK-MB (CK-2) Rel Index Total Protein Albumin TSH Urine WBC (Auto) Salicylates 02/11/17 02/11/17 02/11/17 12:25 17:03 23:59 WBC RBC Hgb Hct MCV MCH RDW Plt Count Lymph % (Auto) [place] % (Auto) Eos % (Auto) Seg Neutrophils % Seg Neuts % (Manual) Lymphocytes % (Manual) Seg Neutrophils # Seg Neutrophils # Man Lymphocytes # (Manual) APTT POC ABG pH ABG pH POC ABG pCO2 POC ABG pO2 ABG pO2 ABG HCO3 ABG Base Excess ABG Hemoglobin VBG pH Oxyhemoglobin Sodium Potassium Chloride Carbon Dioxide BUN Creatinine Glucose POC Glucose 275 H 172 H 215 H Lactic Acid Calcium AST ALT Alkaline Phosphatase CK-MB (CK-2) CK-MB (CK-2) Rel Index Total Protein Albumin TSH Urine WBC (Auto) Salicylates 02/12/17 02/12/17 02/12/17 05:39 11:33 17:55 WBC RBC Hgb Hct MCV MCH RDW Plt Count Lymph % (Auto) [place] % (Auto) Eos % (Auto) Seg Neutrophils % Seg Neuts % (Manual) Lymphocytes % (Manual) Seg Neutrophils # Seg Neutrophils # Man Lymphocytes # (Manual) APTT POC ABG pH ABG pH POC ABG pCO2 POC ABG pO2 ABG pO2 ABG HCO3 ABG Base Excess ABG Hemoglobin VBG pH Oxyhemoglobin Sodium Potassium Chloride Carbon Dioxide BUN Creatinine Glucose POC Glucose 261 H 217 H 172 H Lactic Acid Calcium AST ALT Alkaline Phosphatase CK-MB (CK-2) CK-MB (CK-2) Rel Index Total Protein Albumin TSH Urine WBC (Auto) Salicylates 02/13/17 02/13/17 02/13/17 00:25 06:46 11:26 WBC RBC Hgb Hct MCV MCH RDW Plt Count Lymph % (Auto) [place] % (Auto) Eos % (Auto) Seg Neutrophils % Seg Neuts % (Manual) Lymphocytes % (Manual) Seg Neutrophils # Seg Neutrophils # Man Lymphocytes # (Manual) APTT POC ABG pH ABG pH POC ABG pCO2 POC ABG pO2 ABG pO2 ABG HCO3 ABG Base Excess ABG Hemoglobin VBG pH Oxyhemoglobin Sodium Potassium Chloride Carbon Dioxide BUN Creatinine Glucose POC Glucose 207 H 219 H 231 H Lactic Acid Calcium AST ALT Alkaline Phosphatase CK-MB (CK-2) CK-MB (CK-2) Rel Index Total Protein Albumin TSH Urine WBC (Auto) Salicylates 02/13/17 02/13/17 02/14/17 17:12 23:44 05:44 WBC RBC Hgb Hct MCV MCH RDW Plt Count Lymph % (Auto) [place] % (Auto) Eos % (Auto) Seg Neutrophils % Seg Neuts % (Manual) Lymphocytes % (Manual) Seg Neutrophils # Seg Neutrophils # Man Lymphocytes # (Manual) APTT POC ABG pH ABG pH POC ABG pCO2 POC ABG pO2 ABG pO2 ABG HCO3 ABG Base Excess ABG Hemoglobin VBG pH Oxyhemoglobin Sodium Potassium Chloride Carbon Dioxide BUN Creatinine Glucose POC Glucose 190 H 256 H 184 H Lactic Acid Calcium AST ALT Alkaline Phosphatase CK-MB (CK-2) CK-MB (CK-2) Rel Index Total Protein Albumin TSH Urine WBC (Auto) Salicylates 02/14/17 02/14/17 02/14/17 12:21 17:57 23:18 WBC RBC Hgb Hct MCV MCH RDW Plt Count Lymph % (Auto) [place] % (Auto) Eos % (Auto) Seg Neutrophils % Seg Neuts % (Manual) Lymphocytes % (Manual) Seg Neutrophils # Seg Neutrophils # Man Lymphocytes # (Manual) APTT POC ABG pH ABG pH POC ABG pCO2 POC ABG pO2 ABG pO2 ABG HCO3 ABG Base Excess ABG Hemoglobin VBG pH Oxyhemoglobin Sodium Potassium Chloride Carbon Dioxide BUN Creatinine Glucose POC Glucose 233 H 155 H 165 H Lactic Acid Calcium AST ALT Alkaline Phosphatase CK-MB (CK-2) CK-MB (CK-2) Rel Index Total Protein Albumin TSH Urine WBC (Auto) Salicylates 02/15/17 02/15/17 02/15/17 05:33 11:45 17:20 WBC RBC Hgb Hct MCV MCH RDW Plt Count Lymph % (Auto) [place] % (Auto) Eos % (Auto) Seg Neutrophils % Seg Neuts % (Manual) Lymphocytes % (Manual) Seg Neutrophils # Seg Neutrophils # Man Lymphocytes # (Manual) APTT POC ABG pH ABG pH POC ABG pCO2 POC ABG pO2 ABG pO2 ABG HCO3 ABG Base Excess ABG Hemoglobin VBG pH Oxyhemoglobin Sodium Potassium Chloride Carbon Dioxide BUN Creatinine Glucose POC Glucose 239 H 130 H 189 H Lactic Acid Calcium AST ALT Alkaline Phosphatase CK-MB (CK-2) CK-MB (CK-2) Rel Index Total Protein Albumin TSH Urine WBC (Auto) Salicylates 02/16/17 02/16/17 02/16/17 00:14 05:09 12:31 WBC RBC Hgb Hct MCV MCH RDW Plt Count Lymph % (Auto) [place] % (Auto) Eos % (Auto) Seg Neutrophils % Seg Neuts % (Manual) Lymphocytes % (Manual) Seg Neutrophils # Seg Neutrophils # Man Lymphocytes # (Manual) APTT POC ABG pH ABG pH POC ABG pCO2 POC ABG pO2 ABG pO2 ABG HCO3 ABG Base Excess ABG Hemoglobin VBG pH Oxyhemoglobin Sodium Potassium Chloride Carbon Dioxide BUN Creatinine Glucose POC Glucose 197 H 226 H 178 H Lactic Acid Calcium AST ALT Alkaline Phosphatase CK-MB (CK-2) CK-MB (CK-2) Rel Index Total Protein Albumin TSH Urine WBC (Auto) Salicylates 02/16/17 02/16/17 02/17/17 16:35 23:49 05:37 WBC RBC Hgb Hct MCV MCH RDW Plt Count Lymph % (Auto) [place] % (Auto) Eos % (Auto) Seg Neutrophils % Seg Neuts % (Manual) Lymphocytes % (Manual) Seg Neutrophils # Seg Neutrophils # Man Lymphocytes # (Manual) APTT POC ABG pH ABG pH POC ABG pCO2 POC ABG pO2 ABG pO2 ABG HCO3 ABG Base Excess ABG Hemoglobin VBG pH Oxyhemoglobin Sodium Potassium Chloride Carbon Dioxide BUN Creatinine Glucose POC Glucose 174 H 62 L 153 H Lactic Acid Calcium AST ALT Alkaline Phosphatase CK-MB (CK-2) CK-MB (CK-2) Rel Index Total Protein Albumin TSH Urine WBC (Auto) Salicylates 02/17/17 02/17/17 02/17/17 11:39 17:02 22:24 WBC RBC Hgb Hct MCV MCH RDW Plt Count Lymph % (Auto) [place] % (Auto) Eos % (Auto) Seg Neutrophils % Seg Neuts % (Manual) Lymphocytes % (Manual) Seg Neutrophils # Seg Neutrophils # Man Lymphocytes # (Manual) APTT POC ABG pH ABG pH POC ABG pCO2 POC ABG pO2 ABG pO2 ABG HCO3 ABG Base Excess ABG Hemoglobin VBG pH Oxyhemoglobin Sodium Potassium Chloride Carbon Dioxide BUN Creatinine Glucose POC Glucose 231 H 112 H 116 H Lactic Acid Calcium AST ALT Alkaline Phosphatase CK-MB (CK-2) CK-MB (CK-2) Rel Index Total Protein Albumin TSH Urine WBC (Auto) Salicylates 02/18/17 02/19/17 02/19/17 15:34 05:09 07:57 WBC RBC Hgb Hct MCV MCH RDW Plt Count Lymph % (Auto) [place] % (Auto) Eos % (Auto) Seg Neutrophils % Seg Neuts % (Manual) Lymphocytes % (Manual) Seg Neutrophils # Seg Neutrophils # Man Lymphocytes # (Manual) APTT POC ABG pH ABG pH POC ABG pCO2 POC ABG pO2 ABG pO2 ABG HCO3 ABG Base Excess ABG Hemoglobin VBG pH Oxyhemoglobin Sodium Potassium Chloride Carbon Dioxide BUN Creatinine Glucose POC Glucose 215 H 218 H 283 H Lactic Acid Calcium AST ALT Alkaline Phosphatase CK-MB (CK-2) CK-MB (CK-2) Rel Index Total Protein Albumin TSH Urine WBC (Auto) Salicylates 02/19/17 02/19/17 02/20/17 14:49 22:10 05:10 WBC RBC Hgb Hct MCV MCH RDW Plt Count Lymph % (Auto) [place] % (Auto) Eos % (Auto) Seg Neutrophils % Seg Neuts % (Manual) Lymphocytes % (Manual) Seg Neutrophils # Seg Neutrophils # Man Lymphocytes # (Manual) APTT POC ABG pH ABG pH POC ABG pCO2 POC ABG pO2 ABG pO2 ABG HCO3 ABG Base Excess ABG Hemoglobin VBG pH Oxyhemoglobin Sodium Potassium Chloride Carbon Dioxide BUN Creatinine Glucose POC Glucose 290 H 169 H 209 H Lactic Acid Calcium AST ALT Alkaline Phosphatase CK-MB (CK-2) CK-MB (CK-2) Rel Index Total Protein Albumin TSH Urine WBC (Auto) Salicylates 02/20/17 02/20/17 02/21/17 15:05 21:52 02:00 WBC RBC Hgb Hct MCV MCH RDW Plt Count Lymph % (Auto) [place] % (Auto) Eos % (Auto) Seg Neutrophils % Seg Neuts % (Manual) Lymphocytes % (Manual) Seg Neutrophils # Seg Neutrophils # Man Lymphocytes # (Manual) APTT POC ABG pH ABG pH POC ABG pCO2 POC ABG pO2 ABG pO2 ABG HCO3 ABG Base Excess ABG Hemoglobin VBG pH Oxyhemoglobin Sodium Potassium Chloride Carbon Dioxide BUN Creatinine Glucose POC Glucose 172 H 209 H 216 H Lactic Acid Calcium AST ALT Alkaline Phosphatase CK-MB (CK-2) CK-MB (CK-2) Rel Index Total Protein Albumin TSH Urine WBC (Auto) Salicylates 02/21/17 02/21/17 02/21/17 04:54 14:43 17:47 WBC RBC Hgb Hct MCV MCH RDW Plt Count Lymph % (Auto) [place] % (Auto) Eos % (Auto) Seg Neutrophils % Seg Neuts % (Manual) Lymphocytes % (Manual) Seg Neutrophils # Seg Neutrophils # Man Lymphocytes # (Manual) APTT POC ABG pH ABG pH POC ABG pCO2 POC ABG pO2 ABG pO2 ABG HCO3 ABG Base Excess ABG Hemoglobin VBG pH Oxyhemoglobin Sodium Potassium Chloride Carbon Dioxide BUN Creatinine Glucose POC Glucose 227 H 290 H 220 H Lactic Acid Calcium AST ALT Alkaline Phosphatase CK-MB (CK-2) CK-MB (CK-2) Rel Index Total Protein Albumin TSH Urine WBC (Auto) Salicylates 02/21/17 02/22/17 02/22/17 22:02 04:52 15:25 WBC RBC Hgb Hct MCV MCH RDW Plt Count Lymph % (Auto) [place] % (Auto) Eos % (Auto) Seg Neutrophils % Seg Neuts % (Manual) Lymphocytes % (Manual) Seg Neutrophils # Seg Neutrophils # Man Lymphocytes # (Manual) APTT POC ABG pH ABG pH POC ABG pCO2 POC ABG pO2 ABG pO2 ABG HCO3 ABG Base Excess ABG Hemoglobin VBG pH Oxyhemoglobin Sodium Potassium Chloride Carbon Dioxide BUN Creatinine Glucose POC Glucose 246 H 212 H 236 H Lactic Acid Calcium AST ALT Alkaline Phosphatase CK-MB (CK-2) CK-MB (CK-2) Rel Index Total Protein Albumin TSH Urine WBC (Auto) Salicylates 02/22/17 02/23/17 02/23/17 21:33 06:04 10:00 WBC RBC Hgb Hct MCV MCH RDW Plt Count Lymph % (Auto) [place] % (Auto) Eos % (Auto) Seg Neutrophils % Seg Neuts % (Manual) Lymphocytes % (Manual) Seg Neutrophils # Seg Neutrophils # Man Lymphocytes # (Manual) APTT POC ABG pH ABG pH POC ABG pCO2 POC ABG pO2 ABG pO2 ABG HCO3 ABG Base Excess ABG Hemoglobin VBG pH Oxyhemoglobin Sodium Potassium Chloride Carbon Dioxide BUN Creatinine Glucose POC Glucose 255 H 208 H 174 H Lactic Acid Calcium AST ALT Alkaline Phosphatase CK-MB (CK-2) CK-MB (CK-2) Rel Index Total Protein Albumin TSH Urine WBC (Auto) Salicylates 02/23/17 02/23/17 02/23/17 12:52 17:15 21:51 WBC RBC Hgb Hct MCV MCH RDW Plt Count Lymph % (Auto) [place] % (Auto) Eos % (Auto) Seg Neutrophils % Seg Neuts % (Manual) Lymphocytes % (Manual) Seg Neutrophils # Seg Neutrophils # Man Lymphocytes # (Manual) APTT POC ABG pH ABG pH POC ABG pCO2 POC ABG pO2 ABG pO2 ABG HCO3 ABG Base Excess ABG Hemoglobin VBG pH Oxyhemoglobin Sodium Potassium Chloride Carbon Dioxide BUN Creatinine Glucose POC Glucose 203 H 269 H 205 H Lactic Acid Calcium AST ALT Alkaline Phosphatase CK-MB (CK-2) CK-MB (CK-2) Rel Index Total Protein Albumin TSH Urine WBC (Auto) Salicylates 02/24/17 02/24/17 02/24/17 10:23 17:45 21:24 WBC RBC Hgb Hct MCV MCH RDW Plt Count Lymph % (Auto) [place] % (Auto) Eos % (Auto) Seg Neutrophils % Seg Neuts % (Manual) Lymphocytes % (Manual) Seg Neutrophils # Seg Neutrophils # Man Lymphocytes # (Manual) APTT POC ABG pH ABG pH POC ABG pCO2 POC ABG pO2 ABG pO2 ABG HCO3 ABG Base Excess ABG Hemoglobin VBG pH Oxyhemoglobin Sodium Potassium Chloride Carbon Dioxide BUN Creatinine Glucose POC Glucose 280 H 239 H 254 H Lactic Acid Calcium AST ALT Alkaline Phosphatase CK-MB (CK-2) CK-MB (CK-2) Rel Index Total Protein Albumin TSH Urine WBC (Auto) Salicylates 02/25/17 02/25/17 02/25/17 02:12 05:17 14:32 WBC RBC Hgb Hct MCV MCH RDW Plt Count Lymph % (Auto) [place] % (Auto) Eos % (Auto) Seg Neutrophils % Seg Neuts % (Manual) Lymphocytes % (Manual) Seg Neutrophils # Seg Neutrophils # Man Lymphocytes # (Manual) APTT POC ABG pH ABG pH POC ABG pCO2 POC ABG pO2 ABG pO2 ABG HCO3 ABG Base Excess ABG Hemoglobin VBG pH Oxyhemoglobin Sodium Potassium Chloride Carbon Dioxide BUN Creatinine Glucose POC Glucose 296 H 332 H 353 H Lactic Acid Calcium AST ALT Alkaline Phosphatase CK-MB (CK-2) CK-MB (CK-2) Rel Index Total Protein Albumin TSH Urine WBC (Auto) Salicylates 02/25/17 02/26/17 02/26/17 22:14 00:37 05:52 WBC RBC Hgb Hct MCV MCH RDW Plt Count Lymph % (Auto) [place] % (Auto) Eos % (Auto) Seg Neutrophils % Seg Neuts % (Manual) Lymphocytes % (Manual) Seg Neutrophils # Seg Neutrophils # Man Lymphocytes # (Manual) APTT POC ABG pH ABG pH POC ABG pCO2 POC ABG pO2 ABG pO2 ABG HCO3 ABG Base Excess ABG Hemoglobin VBG pH Oxyhemoglobin Sodium Potassium Chloride Carbon Dioxide BUN Creatinine Glucose POC Glucose 201 H 233 H 269 H Lactic Acid Calcium AST ALT Alkaline Phosphatase CK-MB (CK-2) CK-MB (CK-2) Rel Index Total Protein Albumin TSH Urine WBC (Auto) Salicylates 02/26/17 02/26/17 02/26/17 11:48 13:49 21:26 WBC RBC Hgb Hct MCV MCH RDW Plt Count Lymph % (Auto) [place] % (Auto) Eos % (Auto) Seg Neutrophils % Seg Neuts % (Manual) Lymphocytes % (Manual) Seg Neutrophils # Seg Neutrophils # Man Lymphocytes # (Manual) APTT POC ABG pH ABG pH POC ABG pCO2 POC ABG pO2 ABG pO2 ABG HCO3 ABG Base Excess ABG Hemoglobin VBG pH Oxyhemoglobin Sodium Potassium Chloride Carbon Dioxide BUN Creatinine Glucose POC Glucose 333 H 322 H 244 H Lactic Acid Calcium AST ALT Alkaline Phosphatase CK-MB (CK-2) CK-MB (CK-2) Rel Index Total Protein Albumin TSH Urine WBC (Auto) Salicylates 02/27/17 02/27/17 02/27/17 05:27 13:51 21:48 WBC RBC Hgb Hct MCV MCH RDW Plt Count Lymph % (Auto) [place] % (Auto) Eos % (Auto) Seg Neutrophils % Seg Neuts % (Manual) Lymphocytes % (Manual) Seg Neutrophils # Seg Neutrophils # Man Lymphocytes # (Manual) APTT POC ABG pH ABG pH POC ABG pCO2 POC ABG pO2 ABG pO2 ABG HCO3 ABG Base Excess ABG Hemoglobin VBG pH Oxyhemoglobin Sodium Potassium Chloride Carbon Dioxide BUN Creatinine Glucose POC Glucose 217 H 239 H 254 H Lactic Acid Calcium AST ALT Alkaline Phosphatase CK-MB (CK-2) CK-MB (CK-2) Rel Index Total Protein Albumin TSH Urine WBC (Auto) Salicylates 02/28/17 02/28/17 02/28/17 05:38 11:00 19:44 WBC RBC Hgb Hct MCV MCH RDW Plt Count Lymph % (Auto) [place] % (Auto) Eos % (Auto) Seg Neutrophils % Seg Neuts % (Manual) Lymphocytes % (Manual) Seg Neutrophils # Seg Neutrophils # Man Lymphocytes # (Manual) APTT POC ABG pH ABG pH POC ABG pCO2 POC ABG pO2 ABG pO2 ABG HCO3 ABG Base Excess ABG Hemoglobin VBG pH Oxyhemoglobin Sodium Potassium Chloride Carbon Dioxide BUN Creatinine Glucose POC Glucose 325 H 203 H 116 H Lactic Acid Calcium AST ALT Alkaline Phosphatase CK-MB (CK-2) CK-MB (CK-2) Rel Index Total Protein Albumin TSH Urine WBC (Auto) Salicylates 03/01/17 03/01/17 03/01/17 00:08 05:31 12:17 WBC RBC Hgb Hct MCV MCH RDW Plt Count Lymph % (Auto) [place] % (Auto) Eos % (Auto) Seg Neutrophils % Seg Neuts % (Manual) Lymphocytes % (Manual) Seg Neutrophils # Seg Neutrophils # Man Lymphocytes # (Manual) APTT POC ABG pH ABG pH POC ABG pCO2 POC ABG pO2 ABG pO2 ABG HCO3 ABG Base Excess ABG Hemoglobin VBG pH Oxyhemoglobin Sodium Potassium Chloride Carbon Dioxide BUN Creatinine Glucose POC Glucose 202 H 183 H 184 H Lactic Acid Calcium AST ALT Alkaline Phosphatase CK-MB (CK-2) CK-MB (CK-2) Rel Index Total Protein Albumin TSH Urine WBC (Auto) Salicylates 03/02/17 03/02/17 03/02/17 00:12 05:58 18:22 WBC RBC Hgb Hct MCV MCH RDW Plt Count Lymph % (Auto) [place] % (Auto) Eos % (Auto) Seg Neutrophils % Seg Neuts % (Manual) Lymphocytes % (Manual) Seg Neutrophils # Seg Neutrophils # Man Lymphocytes # (Manual) APTT POC ABG pH ABG pH POC ABG pCO2 POC ABG pO2 ABG pO2 ABG HCO3 ABG Base Excess ABG Hemoglobin VBG pH Oxyhemoglobin Sodium Potassium Chloride Carbon Dioxide BUN Creatinine Glucose POC Glucose 117 H 176 H 156 H Lactic Acid Calcium AST ALT Alkaline Phosphatase CK-MB (CK-2) CK-MB (CK-2) Rel Index Total Protein Albumin TSH Urine WBC (Auto) Salicylates 03/02/17 03/03/17 03/03/17 23:51 05:44 11:32 WBC RBC Hgb Hct MCV MCH RDW Plt Count Lymph % (Auto) [place] % (Auto) Eos % (Auto) Seg Neutrophils % Seg Neuts % (Manual) Lymphocytes % (Manual) Seg Neutrophils # Seg Neutrophils # Man Lymphocytes # (Manual) APTT POC ABG pH ABG pH POC ABG pCO2 POC ABG pO2 ABG pO2 ABG HCO3 ABG Base Excess ABG Hemoglobin VBG pH Oxyhemoglobin Sodium Potassium Chloride Carbon Dioxide BUN Creatinine Glucose POC Glucose 211 H 117 H 133 H Lactic Acid Calcium AST ALT Alkaline Phosphatase CK-MB (CK-2) CK-MB (CK-2) Rel Index Total Protein Albumin TSH Urine WBC (Auto) Salicylates 03/03/17 03/03/17 03/04/17 17:43 23:17 05:30 WBC RBC Hgb Hct MCV MCH RDW Plt Count Lymph % (Auto) [place] % (Auto) Eos % (Auto) Seg Neutrophils % Seg Neuts % (Manual) Lymphocytes % (Manual) Seg Neutrophils # Seg Neutrophils # Man Lymphocytes # (Manual) APTT POC ABG pH ABG pH POC ABG pCO2 POC ABG pO2 ABG pO2 ABG HCO3 ABG Base Excess ABG Hemoglobin VBG pH Oxyhemoglobin Sodium Potassium Chloride Carbon Dioxide BUN Creatinine Glucose POC Glucose 206 H 170 H 126 H Lactic Acid Calcium AST ALT Alkaline Phosphatase CK-MB (CK-2) CK-MB (CK-2) Rel Index Total Protein Albumin TSH Urine WBC (Auto) Salicylates 03/04/17 03/04/17 03/05/17 12:17 17:27 05:20 WBC RBC Hgb Hct MCV MCH RDW Plt Count Lymph % (Auto) [place] % (Auto) Eos % (Auto) Seg Neutrophils % Seg Neuts % (Manual) Lymphocytes % (Manual) Seg Neutrophils # Seg Neutrophils # Man Lymphocytes # (Manual) APTT POC ABG pH ABG pH POC ABG pCO2 POC ABG pO2 ABG pO2 ABG HCO3 ABG Base Excess ABG Hemoglobin VBG pH Oxyhemoglobin Sodium Potassium Chloride Carbon Dioxide BUN Creatinine Glucose POC Glucose 135 H 121 H 185 H Lactic Acid Calcium AST ALT Alkaline Phosphatase CK-MB (CK-2) CK-MB (CK-2) Rel Index Total Protein Albumin TSH Urine WBC (Auto) Salicylates 03/05/17 03/06/17 03/06/17 11:50 11:52 17:34 WBC RBC Hgb Hct MCV MCH RDW Plt Count Lymph % (Auto) [place] % (Auto) Eos % (Auto) Seg Neutrophils % Seg Neuts % (Manual) Lymphocytes % (Manual) Seg Neutrophils # Seg Neutrophils # Man Lymphocytes # (Manual) APTT POC ABG pH ABG pH POC ABG pCO2 POC ABG pO2 ABG pO2 ABG HCO3 ABG Base Excess ABG Hemoglobin VBG pH Oxyhemoglobin Sodium Potassium Chloride Carbon Dioxide BUN Creatinine Glucose POC Glucose 116 H 133 H 181 H Lactic Acid Calcium AST ALT Alkaline Phosphatase CK-MB (CK-2) CK-MB (CK-2) Rel Index Total Protein Albumin TSH Urine WBC (Auto) Salicylates 03/07/17 03/07/17 03/07/17 05:21 11:36 17:49 WBC RBC Hgb Hct MCV MCH RDW Plt Count Lymph % (Auto) [place] % (Auto) Eos % (Auto) Seg Neutrophils % Seg Neuts % (Manual) Lymphocytes % (Manual) Seg Neutrophils # Seg Neutrophils # Man Lymphocytes # (Manual) APTT POC ABG pH ABG pH POC ABG pCO2 POC ABG pO2 ABG pO2 ABG HCO3 ABG Base Excess ABG Hemoglobin VBG pH Oxyhemoglobin Sodium Potassium Chloride Carbon Dioxide BUN Creatinine Glucose POC Glucose 159 H 137 H 158 H Lactic Acid Calcium AST ALT Alkaline Phosphatase CK-MB (CK-2) CK-MB (CK-2) Rel Index Total Protein Albumin TSH Urine WBC (Auto) Salicylates 03/08/17 03/08/17 03/08/17 05:51 13:58 23:50 WBC RBC Hgb Hct MCV MCH RDW Plt Count Lymph % (Auto) [place] % (Auto) Eos % (Auto) Seg Neutrophils % Seg Neuts % (Manual) Lymphocytes % (Manual) Seg Neutrophils # Seg Neutrophils # Man Lymphocytes # (Manual) APTT POC ABG pH ABG pH POC ABG pCO2 POC ABG pO2 ABG pO2 ABG HCO3 ABG Base Excess ABG Hemoglobin VBG pH Oxyhemoglobin Sodium Potassium Chloride Carbon Dioxide BUN Creatinine Glucose POC Glucose 122 H 182 H 114 H Lactic Acid Calcium AST ALT Alkaline Phosphatase CK-MB (CK-2) CK-MB (CK-2) Rel Index Total Protein Albumin TSH Urine WBC (Auto) Salicylates 03/09/17 03/09/17 03/09/17 05:21 05:51 05:51 WBC RBC 3.61 L Hgb 9.5 L Hct 28.3 L MCV 79 L MCH 26 L RDW 17.8 H Plt Count Lymph % (Auto) [place] % (Auto) Eos % (Auto) Seg Neutrophils % Seg Neuts % (Manual) Lymphocytes % (Manual) Seg Neutrophils # Seg Neutrophils # Man Lymphocytes # (Manual) APTT POC ABG pH ABG pH POC ABG pCO2 POC ABG pO2 ABG pO2 ABG HCO3 ABG Base Excess ABG Hemoglobin VBG pH Oxyhemoglobin Sodium 134 L Potassium Chloride 95.5 L Carbon Dioxide BUN 33 H Creatinine 0.5 L Glucose 143 H POC Glucose 153 H Lactic Acid Calcium AST ALT Alkaline Phosphatase CK-MB (CK-2) CK-MB (CK-2) Rel Index Total Protein Albumin TSH Urine WBC (Auto) Salicylates 03/09/17 03/09/17 03/09/17 12:10 18:13 21:00 WBC RBC Hgb Hct MCV MCH RDW Plt Count Lymph % (Auto) [place] % (Auto) Eos % (Auto) Seg Neutrophils % Seg Neuts % (Manual) Lymphocytes % (Manual) Seg Neutrophils # Seg Neutrophils # Man Lymphocytes # (Manual) APTT POC ABG pH ABG pH POC ABG pCO2 POC ABG pO2 ABG pO2 ABG HCO3 ABG Base Excess ABG Hemoglobin VBG pH Oxyhemoglobin Sodium Potassium Chloride Carbon Dioxide BUN Creatinine Glucose POC Glucose 203 H 221 H 198 H Lactic Acid Calcium AST ALT Alkaline Phosphatase CK-MB (CK-2) CK-MB (CK-2) Rel Index Total Protein Albumin TSH Urine WBC (Auto) Salicylates 03/09/17 03/10/17 03/10/17 23:58 05:09 05:09 WBC RBC Hgb 10.3 L Hct 30.5 L MCV 78 L MCH 26 L RDW 17.9 H Plt Count Lymph % (Auto) [place] % (Auto) 10.0 H Eos % (Auto) 6.0 H Seg Neutrophils % Seg Neuts % (Manual) Lymphocytes % (Manual) Seg Neutrophils # Seg Neutrophils # Man Lymphocytes # (Manual) APTT POC ABG pH ABG pH POC ABG pCO2 POC ABG pO2 ABG pO2 ABG HCO3 ABG Base Excess ABG Hemoglobin VBG pH Oxyhemoglobin Sodium 132 L Potassium Chloride 92.2 L Carbon Dioxide BUN 33 H Creatinine 0.5 L Glucose 50 L POC Glucose 167 H Lactic Acid Calcium AST ALT Alkaline Phosphatase CK-MB (CK-2) CK-MB (CK-2) Rel Index Total Protein Albumin TSH Urine WBC (Auto) Salicylates 03/10/17 03/10/17 03/10/17 05:33 05:34 11:48 WBC RBC Hgb Hct MCV MCH RDW Plt Count Lymph % (Auto) [place] % (Auto) Eos % (Auto) Seg Neutrophils % Seg Neuts % (Manual) Lymphocytes % (Manual) Seg Neutrophils # Seg Neutrophils # Man Lymphocytes # (Manual) APTT POC ABG pH ABG pH POC ABG pCO2 POC ABG pO2 ABG pO2 ABG HCO3 ABG Base Excess ABG Hemoglobin VBG pH Oxyhemoglobin Sodium Potassium Chloride Carbon Dioxide BUN Creatinine Glucose POC Glucose 52 L 53 L 148 H Lactic Acid Calcium AST ALT Alkaline Phosphatase CK-MB (CK-2) CK-MB (CK-2) Rel Index Total Protein Albumin TSH Urine WBC (Auto) Salicylates 03/10/17 03/10/17 03/11/17 17:53 23:47 05:18 WBC RBC Hgb Hct MCV MCH RDW Plt Count Lymph % (Auto) [place] % (Auto) Eos % (Auto) Seg Neutrophils % Seg Neuts % (Manual) Lymphocytes % (Manual) Seg Neutrophils # Seg Neutrophils # Man Lymphocytes # (Manual) APTT POC ABG pH ABG pH POC ABG pCO2 POC ABG pO2 ABG pO2 ABG HCO3 ABG Base Excess ABG Hemoglobin VBG pH Oxyhemoglobin Sodium Potassium Chloride Carbon Dioxide BUN Creatinine Glucose POC Glucose 189 H 398 H 126 H Lactic Acid Calcium AST ALT Alkaline Phosphatase CK-MB (CK-2) CK-MB (CK-2) Rel Index Total Protein Albumin TSH Urine WBC (Auto) Salicylates 03/11/17 03/11/17 03/11/17 11:53 17:30 23:10 WBC RBC Hgb Hct MCV MCH RDW Plt Count Lymph % (Auto) [place] % (Auto) Eos % (Auto) Seg Neutrophils % Seg Neuts % (Manual) Lymphocytes % (Manual) Seg Neutrophils # Seg Neutrophils # Man Lymphocytes # (Manual) APTT POC ABG pH ABG pH POC ABG pCO2 POC ABG pO2 ABG pO2 ABG HCO3 ABG Base Excess ABG Hemoglobin VBG pH Oxyhemoglobin Sodium Potassium Chloride Carbon Dioxide BUN Creatinine Glucose POC Glucose 198 H 142 H 244 H Lactic Acid Calcium AST ALT Alkaline Phosphatase CK-MB (CK-2) CK-MB (CK-2) Rel Index Total Protein Albumin TSH Urine WBC (Auto) Salicylates 03/12/17 03/12/17 03/12/17 04:36 11:49 17:23 WBC RBC Hgb Hct MCV MCH RDW Plt Count Lymph % (Auto) [place] % (Auto) Eos % (Auto) Seg Neutrophils % Seg Neuts % (Manual) Lymphocytes % (Manual) Seg Neutrophils # Seg Neutrophils # Man Lymphocytes # (Manual) APTT POC ABG pH ABG pH POC ABG pCO2 POC ABG pO2 ABG pO2 ABG HCO3 ABG Base Excess ABG Hemoglobin VBG pH Oxyhemoglobin Sodium Potassium Chloride Carbon Dioxide BUN Creatinine Glucose POC Glucose 205 H 197 H 209 H Lactic Acid Calcium AST ALT Alkaline Phosphatase CK-MB (CK-2) CK-MB (CK-2) Rel Index Total Protein Albumin TSH Urine WBC (Auto) Salicylates 03/12/17 03/13/17 03/13/17 23:51 05:32 11:43 WBC RBC Hgb Hct MCV MCH RDW Plt Count Lymph % (Auto) [place] % (Auto) Eos % (Auto) Seg Neutrophils % Seg Neuts % (Manual) Lymphocytes % (Manual) Seg Neutrophils # Seg Neutrophils # Man Lymphocytes # (Manual) APTT POC ABG pH ABG pH POC ABG pCO2 POC ABG pO2 ABG pO2 ABG HCO3 ABG Base Excess ABG Hemoglobin VBG pH Oxyhemoglobin Sodium Potassium Chloride Carbon Dioxide BUN Creatinine Glucose POC Glucose 210 H 154 H 164 H Lactic Acid Calcium AST ALT Alkaline Phosphatase CK-MB (CK-2) CK-MB (CK-2) Rel Index Total Protein Albumin TSH Urine WBC (Auto) Salicylates 03/13/17 03/13/17 03/14/17 17:11 23:26 05:42 WBC RBC Hgb Hct MCV MCH RDW Plt Count Lymph % (Auto) [place] % (Auto) Eos % (Auto) Seg Neutrophils % Seg Neuts % (Manual) Lymphocytes % (Manual) Seg Neutrophils # Seg Neutrophils # Man Lymphocytes # (Manual) APTT POC ABG pH ABG pH POC ABG pCO2 POC ABG pO2 ABG pO2 ABG HCO3 ABG Base Excess ABG Hemoglobin VBG pH Oxyhemoglobin Sodium Potassium Chloride Carbon Dioxide BUN Creatinine Glucose POC Glucose 195 H 240 H 230 H Lactic Acid Calcium AST ALT Alkaline Phosphatase CK-MB (CK-2) CK-MB (CK-2) Rel Index Total Protein Albumin TSH Urine WBC (Auto) Salicylates 03/14/17 03/14/17 03/14/17 14:04 17:34 23:42 WBC RBC Hgb Hct MCV MCH RDW Plt Count Lymph % (Auto) [place] % (Auto) Eos % (Auto) Seg Neutrophils % Seg Neuts % (Manual) Lymphocytes % (Manual) Seg Neutrophils # Seg Neutrophils # Man Lymphocytes # (Manual) APTT POC ABG pH ABG pH POC ABG pCO2 POC ABG pO2 ABG pO2 ABG HCO3 ABG Base Excess ABG Hemoglobin VBG pH Oxyhemoglobin Sodium Potassium Chloride Carbon Dioxide BUN Creatinine Glucose POC Glucose 227 H 186 H 225 H Lactic Acid Calcium AST ALT Alkaline Phosphatase CK-MB (CK-2) CK-MB (CK-2) Rel Index Total Protein Albumin TSH Urine WBC (Auto) Salicylates 03/15/17 03/15/17 03/15/17 05:21 17:13 21:37 WBC RBC Hgb Hct MCV MCH RDW Plt Count Lymph % (Auto) [place] % (Auto) Eos % (Auto) Seg Neutrophils % Seg Neuts % (Manual) Lymphocytes % (Manual) Seg Neutrophils # Seg Neutrophils # Man Lymphocytes # (Manual) APTT POC ABG pH ABG pH POC ABG pCO2 POC ABG pO2 ABG pO2 ABG HCO3 ABG Base Excess ABG Hemoglobin VBG pH Oxyhemoglobin Sodium Potassium Chloride Carbon Dioxide BUN Creatinine Glucose POC Glucose 244 H 203 H 216 H Lactic Acid Calcium AST ALT Alkaline Phosphatase CK-MB (CK-2) CK-MB (CK-2) Rel Index Total Protein Albumin TSH Urine WBC (Auto) Salicylates 03/16/17 03/16/17 03/16/17 05:52 18:07 21:54 WBC RBC Hgb Hct MCV MCH RDW Plt Count Lymph % (Auto) [place] % (Auto) Eos % (Auto) Seg Neutrophils % Seg Neuts % (Manual) Lymphocytes % (Manual) Seg Neutrophils # Seg Neutrophils # Man Lymphocytes # (Manual) APTT POC ABG pH ABG pH POC ABG pCO2 POC ABG pO2 ABG pO2 ABG HCO3 ABG Base Excess ABG Hemoglobin VBG pH Oxyhemoglobin Sodium Potassium Chloride Carbon Dioxide BUN Creatinine Glucose POC Glucose 248 H 254 H 244 H Lactic Acid Calcium AST ALT Alkaline Phosphatase CK-MB (CK-2) CK-MB (CK-2) Rel Index Total Protein Albumin TSH Urine WBC (Auto) Salicylates 03/17/17 03/17/17 03/17/17 07:07 07:42 07:43 WBC RBC Hgb 9.7 L Hct 29.1 L MCV 78 L MCH 26 L RDW 17.4 H Plt Count Lymph % (Auto) [place] % (Auto) Eos % (Auto) Seg Neutrophils % Seg Neuts % (Manual) Lymphocytes % (Manual) Seg Neutrophils # Seg Neutrophils # Man Lymphocytes # (Manual) APTT POC ABG pH ABG pH POC ABG pCO2 POC ABG pO2 ABG pO2 ABG HCO3 ABG Base Excess ABG Hemoglobin VBG pH Oxyhemoglobin Sodium Potassium Chloride 96.6 L Carbon Dioxide BUN 30 H Creatinine 0.5 L Glucose 251 H POC Glucose 222 H Lactic Acid Calcium AST ALT Alkaline Phosphatase CK-MB (CK-2) CK-MB (CK-2) Rel Index Total Protein Albumin TSH Urine WBC (Auto) Salicylates 03/17/17 03/17/17 03/18/17 14:08 21:20 14:24 WBC RBC Hgb Hct MCV MCH RDW Plt Count Lymph % (Auto) [place] % (Auto) Eos % (Auto) Seg Neutrophils % Seg Neuts % (Manual) Lymphocytes % (Manual) Seg Neutrophils # Seg Neutrophils # Man Lymphocytes # (Manual) APTT POC ABG pH ABG pH POC ABG pCO2 POC ABG pO2 ABG pO2 ABG HCO3 ABG Base Excess ABG Hemoglobin VBG pH Oxyhemoglobin Sodium Potassium Chloride Carbon Dioxide BUN Creatinine Glucose POC Glucose 281 H 239 H 195 H Lactic Acid Calcium AST ALT Alkaline Phosphatase CK-MB (CK-2) CK-MB (CK-2) Rel Index Total Protein Albumin TSH Urine WBC (Auto) Salicylates 03/18/17 03/19/17 03/19/17 21:37 04:57 14:23 WBC RBC Hgb Hct MCV MCH RDW Plt Count Lymph % (Auto) [place] % (Auto) Eos % (Auto) Seg Neutrophils % Seg Neuts % (Manual) Lymphocytes % (Manual) Seg Neutrophils # Seg Neutrophils # Man Lymphocytes # (Manual) APTT POC ABG pH ABG pH POC ABG pCO2 POC ABG pO2 ABG pO2 ABG HCO3 ABG Base Excess ABG Hemoglobin VBG pH Oxyhemoglobin Sodium Potassium Chloride Carbon Dioxide BUN Creatinine Glucose POC Glucose 227 H 205 H 277 H Lactic Acid Calcium AST ALT Alkaline Phosphatase CK-MB (CK-2) CK-MB (CK-2) Rel Index Total Protein Albumin TSH Urine WBC (Auto) Salicylates 03/19/17 03/19/17 03/20/17 20:31 21:47 04:55 WBC RBC Hgb Hct MCV MCH RDW Plt Count Lymph % (Auto) [place] % (Auto) Eos % (Auto) Seg Neutrophils % Seg Neuts % (Manual) Lymphocytes % (Manual) Seg Neutrophils # Seg Neutrophils # Man Lymphocytes # (Manual) APTT POC ABG pH ABG pH POC ABG pCO2 POC ABG pO2 ABG pO2 ABG HCO3 ABG Base Excess ABG Hemoglobin VBG pH Oxyhemoglobin Sodium Potassium Chloride Carbon Dioxide BUN Creatinine Glucose POC Glucose 256 H 270 H 202 H Lactic Acid Calcium AST ALT Alkaline Phosphatase CK-MB (CK-2) CK-MB (CK-2) Rel Index Total Protein Albumin TSH Urine WBC (Auto) Salicylates 03/20/17 03/20/17 03/21/17 14:09 21:40 05:09 WBC RBC Hgb Hct MCV MCH RDW Plt Count Lymph % (Auto) [place] % (Auto) Eos % (Auto) Seg Neutrophils % Seg Neuts % (Manual) Lymphocytes % (Manual) Seg Neutrophils # Seg Neutrophils # Man Lymphocytes # (Manual) APTT POC ABG pH ABG pH POC ABG pCO2 POC ABG pO2 ABG pO2 ABG HCO3 ABG Base Excess ABG Hemoglobin VBG pH Oxyhemoglobin Sodium Potassium Chloride Carbon Dioxide BUN Creatinine Glucose POC Glucose 200 H 214 H 233 H Lactic Acid Calcium AST ALT Alkaline Phosphatase CK-MB (CK-2) CK-MB (CK-2) Rel Index Total Protein Albumin TSH Urine WBC (Auto) Salicylates 03/21/17 03/21/17 03/22/17 14:06 21:26 05:43 WBC RBC Hgb Hct MCV MCH RDW Plt Count Lymph % (Auto) [place] % (Auto) Eos % (Auto) Seg Neutrophils % Seg Neuts % (Manual) Lymphocytes % (Manual) Seg Neutrophils # Seg Neutrophils # Man Lymphocytes # (Manual) APTT POC ABG pH ABG pH POC ABG pCO2 POC ABG pO2 ABG pO2 ABG HCO3 ABG Base Excess ABG Hemoglobin VBG pH Oxyhemoglobin Sodium Potassium Chloride Carbon Dioxide BUN Creatinine Glucose POC Glucose 250 H 155 H 251 H Lactic Acid Calcium AST ALT Alkaline Phosphatase CK-MB (CK-2) CK-MB (CK-2) Rel Index Total Protein Albumin TSH Urine WBC (Auto) Salicylates 03/22/17 03/22/17 03/23/17 13:46 21:16 00:23 WBC RBC Hgb Hct MCV MCH RDW Plt Count Lymph % (Auto) [place] % (Auto) Eos % (Auto) Seg Neutrophils % Seg Neuts % (Manual) Lymphocytes % (Manual) Seg Neutrophils # Seg Neutrophils # Man Lymphocytes # (Manual) APTT POC ABG pH ABG pH POC ABG pCO2 POC ABG pO2 ABG pO2 ABG HCO3 ABG Base Excess ABG Hemoglobin VBG pH Oxyhemoglobin Sodium Potassium Chloride Carbon Dioxide BUN Creatinine Glucose POC Glucose 269 H 197 H 126 H Lactic Acid Calcium AST ALT Alkaline Phosphatase CK-MB (CK-2) CK-MB (CK-2) Rel Index Total Protein Albumin TSH Urine WBC (Auto) Salicylates 03/23/17 03/23/17 03/23/17 05:39 14:06 21:39 WBC RBC Hgb Hct MCV MCH RDW Plt Count Lymph % (Auto) [place]lin % (Auto) Eos % (Auto) Seg Neutrophils % Seg Neuts % (Manual) Lymphocytes % (Manual) Seg Neutrophils # Seg Neutrophils # Man Lymphocytes # (Manual) APTT POC ABG pH ABG pH POC ABG pCO2 POC ABG pO2 ABG pO2 ABG HCO3 ABG Base Excess ABG Hemoglobin VBG pH Oxyhemoglobin Sodium Potassium Chloride Carbon Dioxide BUN Creatinine Glucose POC Glucose 234 H 241 H 248 H Lactic Acid Calcium AST ALT Alkaline Phosphatase CK-MB (CK-2) CK-MB (CK-2) Rel Index Total Protein Albumin TSH Urine WBC (Auto) Salicylates 03/24/17 03/24/17 03/25/17 05:06 21:46 05:38 WBC RBC Hgb Hct MCV MCH RDW Plt Count Lymph % (Auto) Collin % (Auto) Eos % (Auto) Seg Neutrophils % Seg Neuts % (Manual) Lymphocytes % (Manual) Seg Neutrophils # Seg Neutrophils # Man Lymphocytes # (Manual) APTT POC ABG pH ABG pH POC ABG pCO2 POC ABG pO2 ABG pO2 ABG HCO3 ABG Base Excess ABG Hemoglobin VBG pH Oxyhemoglobin Sodium Potassium Chloride Carbon Dioxide BUN Creatinine Glucose POC Glucose 232 H 276 H 242 H Lactic Acid Calcium AST ALT Alkaline Phosphatase CK-MB (CK-2) CK-MB (CK-2) Rel Index Total Protein Albumin TSH Urine WBC (Auto) Salicylates 03/25/17 03/25/17 03/26/17 14:30 23:14 13:53 WBC RBC Hgb Hct MCV MCH RDW Plt Count Lymph % (Auto) [place]lin % (Auto) Eos % (Auto) Seg Neutrophils % Seg Neuts % (Manual) Lymphocytes % (Manual) Seg Neutrophils # Seg Neutrophils # Man Lymphocytes # (Manual) APTT POC ABG pH ABG pH POC ABG pCO2 POC ABG pO2 ABG pO2 ABG HCO3 ABG Base Excess ABG Hemoglobin VBG pH Oxyhemoglobin Sodium Potassium Chloride Carbon Dioxide BUN Creatinine Glucose POC Glucose 246 H 208 H 195 H Lactic Acid Calcium AST ALT Alkaline Phosphatase CK-MB (CK-2) CK-MB (CK-2) Rel Index Total Protein Albumin TSH Urine WBC (Auto) Salicylates 03/26/17 03/27/17 03/27/17 21:58 05:18 14:57 WBC RBC Hgb Hct MCV MCH RDW Plt Count Lymph % (Auto) [place] % (Auto) Eos % (Auto) Seg Neutrophils % Seg Neuts % (Manual) Lymphocytes % (Manual) Seg Neutrophils # Seg Neutrophils # Man Lymphocytes # (Manual) APTT POC ABG pH ABG pH POC ABG pCO2 POC ABG pO2 ABG pO2 ABG HCO3 ABG Base Excess ABG Hemoglobin VBG pH Oxyhemoglobin Sodium Potassium Chloride Carbon Dioxide BUN Creatinine Glucose POC Glucose 241 H 199 H 269 H Lactic Acid Calcium AST ALT Alkaline Phosphatase CK-MB (CK-2) CK-MB (CK-2) Rel Index Total Protein Albumin TSH Urine WBC (Auto) Salicylates 03/27/17 03/28/17 03/28/17 21:33 13:52 21:29 WBC RBC Hgb Hct MCV MCH RDW Plt Count Lymph % (Auto) [place] % (Auto) Eos % (Auto) Seg Neutrophils % Seg Neuts % (Manual) Lymphocytes % (Manual) Seg Neutrophils # Seg Neutrophils # Man Lymphocytes # (Manual) APTT POC ABG pH ABG pH POC ABG pCO2 POC ABG pO2 ABG pO2 ABG HCO3 ABG Base Excess ABG Hemoglobin VBG pH Oxyhemoglobin Sodium Potassium Chloride Carbon Dioxide BUN Creatinine Glucose POC Glucose 214 H 243 H 286 H Lactic Acid Calcium AST ALT Alkaline Phosphatase CK-MB (CK-2) CK-MB (CK-2) Rel Index Total Protein Albumin TSH Urine WBC (Auto) Salicylates 03/29/17 03/29/17 03/29/17 04:32 04:32 13:58 WBC RBC Hgb 10.6 L Hct 32.9 L MCV 78 L MCH 25 L RDW 17.6 H Plt Count Lymph % (Auto) 38.0 H [place] % (Auto) 9.7 H Eos % (Auto) Seg Neutrophils % Seg Neuts % (Manual) Lymphocytes % (Manual) Seg Neutrophils # Seg Neutrophils # Man Lymphocytes # (Manual) APTT POC ABG pH ABG pH POC ABG pCO2 POC ABG pO2 ABG pO2 ABG HCO3 ABG Base Excess ABG Hemoglobin VBG pH Oxyhemoglobin Sodium 132 L Potassium Chloride 94.0 L Carbon Dioxide BUN 28 H Creatinine 0.5 L Glucose 236 H POC Glucose 171 H Lactic Acid Calcium AST ALT 71 H Alkaline Phosphatase 391 H CK-MB (CK-2) CK-MB (CK-2) Rel Index Total Protein 8.3 H Albumin 2.9 L TSH Urine WBC (Auto) Salicylates 03/29/17 03/30/17 03/30/17 20:59 06:07 11:52 WBC RBC Hgb Hct MCV MCH RDW Plt Count Lymph % (Auto) [place] % (Auto) Eos % (Auto) Seg Neutrophils % Seg Neuts % (Manual) Lymphocytes % (Manual) Seg Neutrophils # Seg Neutrophils # Man Lymphocytes # (Manual) APTT POC ABG pH ABG pH POC ABG pCO2 POC ABG pO2 ABG pO2 ABG HCO3 ABG Base Excess ABG Hemoglobin VBG pH Oxyhemoglobin Sodium Potassium Chloride Carbon Dioxide BUN Creatinine Glucose POC Glucose 215 H 259 H 197 H Lactic Acid Calcium AST ALT Alkaline Phosphatase CK-MB (CK-2) CK-MB (CK-2) Rel Index Total Protein Albumin TSH Urine WBC (Auto) Salicylates 03/30/17 03/31/17 03/31/17 21:34 05:42 14:34 WBC RBC Hgb Hct MCV MCH RDW Plt Count Lymph % (Auto) [place] % (Auto) Eos % (Auto) Seg Neutrophils % Seg Neuts % (Manual) Lymphocytes % (Manual) Seg Neutrophils # Seg Neutrophils # Man Lymphocytes # (Manual) APTT POC ABG pH ABG pH POC ABG pCO2 POC ABG pO2 ABG pO2 ABG HCO3 ABG Base Excess ABG Hemoglobin VBG pH Oxyhemoglobin Sodium Potassium Chloride Carbon Dioxide BUN Creatinine Glucose POC Glucose 207 H 184 H 213 H Lactic Acid Calcium AST ALT Alkaline Phosphatase CK-MB (CK-2) CK-MB (CK-2) Rel Index Total Protein Albumin TSH Urine WBC (Auto) Salicylates 03/31/17 04/01/17 04/01/17 21:32 05:53 13:48 WBC RBC Hgb Hct MCV MCH RDW Plt Count Lymph % (Auto) [place] % (Auto) Eos % (Auto) Seg Neutrophils % Seg Neuts % (Manual) Lymphocytes % (Manual) Seg Neutrophils # Seg Neutrophils # Man Lymphocytes # (Manual) APTT POC ABG pH ABG pH POC ABG pCO2 POC ABG pO2 ABG pO2 ABG HCO3 ABG Base Excess ABG Hemoglobin VBG pH Oxyhemoglobin Sodium Potassium Chloride Carbon Dioxide BUN Creatinine Glucose POC Glucose 249 H 225 H 256 H Lactic Acid Calcium AST ALT Alkaline Phosphatase CK-MB (CK-2) CK-MB (CK-2) Rel Index Total Protein Albumin TSH Urine WBC (Auto) Salicylates 04/01/17 04/02/17 04/02/17 21:34 05:32 14:05 WBC RBC Hgb Hct MCV MCH RDW Plt Count Lymph % (Auto) [place] % (Auto) Eos % (Auto) Seg Neutrophils % Seg Neuts % (Manual) Lymphocytes % (Manual) Seg Neutrophils # Seg Neutrophils # Man Lymphocytes # (Manual) APTT POC ABG pH ABG pH POC ABG pCO2 POC ABG pO2 ABG pO2 ABG HCO3 ABG Base Excess ABG Hemoglobin VBG pH Oxyhemoglobin Sodium Potassium Chloride Carbon Dioxide BUN Creatinine Glucose POC Glucose 292 H 220 H 187 H Lactic Acid Calcium AST ALT Alkaline Phosphatase CK-MB (CK-2) CK-MB (CK-2) Rel Index Total Protein Albumin TSH Urine WBC (Auto) Salicylates 04/02/17 04/03/17 04/03/17 21:57 04:49 14:12 WBC RBC Hgb Hct MCV MCH RDW Plt Count Lymph % (Auto) [place] % (Auto) Eos % (Auto) Seg Neutrophils % Seg Neuts % (Manual) Lymphocytes % (Manual) Seg Neutrophils # Seg Neutrophils # Man Lymphocytes # (Manual) APTT POC ABG pH ABG pH POC ABG pCO2 POC ABG pO2 ABG pO2 ABG HCO3 ABG Base Excess ABG Hemoglobin VBG pH Oxyhemoglobin Sodium Potassium Chloride Carbon Dioxide BUN Creatinine Glucose POC Glucose 285 H 256 H 197 H Lactic Acid Calcium AST ALT Alkaline Phosphatase CK-MB (CK-2) CK-MB (CK-2) Rel Index Total Protein Albumin TSH Urine WBC (Auto) Salicylates 04/03/17 04/04/17 04/04/17 21:11 05:20 13:18 WBC RBC Hgb Hct MCV MCH RDW Plt Count Lymph % (Auto) [place] % (Auto) Eos % (Auto) Seg Neutrophils % Seg Neuts % (Manual) Lymphocytes % (Manual) Seg Neutrophils # Seg Neutrophils # Man Lymphocytes # (Manual) APTT POC ABG pH ABG pH POC ABG pCO2 POC ABG pO2 ABG pO2 ABG HCO3 ABG Base Excess ABG Hemoglobin VBG pH Oxyhemoglobin Sodium Potassium Chloride Carbon Dioxide BUN Creatinine Glucose POC Glucose 166 H 228 H 252 H Lactic Acid Calcium AST ALT Alkaline Phosphatase CK-MB (CK-2) CK-MB (CK-2) Rel Index Total Protein Albumin TSH Urine WBC (Auto) Salicylates 04/04/17 04/05/17 04/05/17 21:51 06:14 09:54 WBC RBC Hgb Hct MCV MCH RDW Plt Count Lymph % (Auto) [place] % (Auto) Eos % (Auto) Seg Neutrophils % Seg Neuts % (Manual) Lymphocytes % (Manual) Seg Neutrophils # Seg Neutrophils # Man Lymphocytes # (Manual) APTT POC ABG pH ABG pH POC ABG pCO2 POC ABG pO2 ABG pO2 ABG HCO3 ABG Base Excess ABG Hemoglobin VBG pH Oxyhemoglobin Sodium Potassium Chloride Carbon Dioxide BUN Creatinine Glucose POC Glucose 252 H 152 H 181 H Lactic Acid Calcium AST ALT Alkaline Phosphatase CK-MB (CK-2) CK-MB (CK-2) Rel Index Total Protein Albumin TSH Urine WBC (Auto) Salicylates 04/05/17 04/05/17 04/05/17 14:49 17:34 21:38 WBC RBC Hgb Hct MCV MCH RDW Plt Count Lymph % (Auto) [place] % (Auto) Eos % (Auto) Seg Neutrophils % Seg Neuts % (Manual) Lymphocytes % (Manual) Seg Neutrophils # Seg Neutrophils # Man Lymphocytes # (Manual) APTT POC ABG pH ABG pH POC ABG pCO2 POC ABG pO2 ABG pO2 ABG HCO3 ABG Base Excess ABG Hemoglobin VBG pH Oxyhemoglobin Sodium Potassium Chloride Carbon Dioxide BUN Creatinine Glucose POC Glucose 219 H 268 H 278 H Lactic Acid Calcium AST ALT Alkaline Phosphatase CK-MB (CK-2) CK-MB (CK-2) Rel Index Total Protein Albumin TSH Urine WBC (Auto) Salicylates 04/06/17 04/06/17 04/07/17 15:04 22:14 05:09 WBC RBC Hgb Hct MCV MCH RDW Plt Count Lymph % (Auto) [place] % (Auto) Eos % (Auto) Seg Neutrophils % Seg Neuts % (Manual) Lymphocytes % (Manual) Seg Neutrophils # Seg Neutrophils # Man Lymphocytes # (Manual) APTT POC ABG pH ABG pH POC ABG pCO2 POC ABG pO2 ABG pO2 ABG HCO3 ABG Base Excess ABG Hemoglobin VBG pH Oxyhemoglobin Sodium Potassium Chloride Carbon Dioxide BUN Creatinine Glucose POC Glucose 285 H 106 H 334 H Lactic Acid Calcium AST ALT Alkaline Phosphatase CK-MB (CK-2) CK-MB (CK-2) Rel Index Total Protein Albumin TSH Urine WBC (Auto) Salicylates
[2017-04-07] MEDS: TYLENOL FEEDTUBE PRN (21:26)
[2017-04-08] MEDS: HumuLIN R SUB-Q SCH ×3 (05:58→23:15)
[2017-04-08] MEDS: SYNTHROID PO SCH (05:58)
[2017-04-08] MEDS: HEPARIN SUB-Q SCH ×2 (10:22→21:52)
[2017-04-08] MEDS: PEPCID PO SCH ×2 (10:22→21:52)
--- NOTE | 2017-04-08 12:32 | Progress Note ---
Assessment and Plan Assessment and plan: 51 YO Male with CKD,HTN, DM presents to ED after found down and unresponsive by his neighbor, who subsequently called EMS. Upon arrival, patient found unresponsive on the floor with a serum glucose of 21, patient has a known history of alcohol abuse and delirium tremens. The patient was administered D5 approximate 500 mls during transport without change in mental status/level of consciousness. Pt seen and evaluated in ED was was found to be unable to protect his airway. Pt intubated and placed on vent support. Pt found to have evidence of hypothyroidism. He was started on Synthroid. He has since been in the ICU. phlebotomy services technician try to locate family, even spoke to the family who he lives with. They themselves were unaware of any family members. After ethics committee meeting on the patient. The decision was made to make him DO NOT RESUSCITATE and to transfer him to hospice. Given his very poor prognosis and poor likelihood of recovery. It was decided that was not his best interest to get trach and PEG. Therefore he'll be transferred to the hospice intubated. Now Awaiting on court ordered /state guardianship. Hypoglycemic brain injury Persistent vegetative state Metabolic encephalopathy Hypoglycemia/hypothermia, resolved Acute respiratory failure mechanical ventilator greater than 96 hours UTI with klebsiella, treated ( Cx + on 01/28), then with ESBL likely colonization hyponatremia, Hypothyroidism IDDM Hypertension low grade Fever, resolved - Cont supportive care and current medication. Monitor vitals, repeat cx on - no growth - increased dose of long acting insulin to 15 unit - Patient is DNR- needs guardianship from the state to give consent for further management, as has no family to give consent. 04/08/17: per pulmonology, Dr. Broussard: " Imp: 1. Hypoglycemia/hypothermia -> suspect due to too much insulin 2. Hypothyroidism; doubt myxedema coma with normal free T4 3. Acute respiratory failure, hypoxia 4. UTI/SIRS 5. Metabolic encephalopathy Rec: 1. GI/DVT PPx/TFs 2. Reviewed chart; ethics note 01/18/17 recommended AND and "hospice"; trying to get guardianship to sign necessary orders for this (however, I was told they are not willing to sign for withdrawal of ventilator); further care felt to be futile and would only prolong potential suffering without affecting ultimate outcome 3. Comfort care, no escalation of care; would not check any further labs; would not work him up for infections in setting of fever, only treat w/ Tylenol 4. Poor prognosis Unable to locate family." which I agree with Dr. Ball and poor prognosis History Interval history: Patient was seen and examined. Follow-up on current diagnosis. Imaging, nursing note, chart, labs and old chart reviewed. Patient remains intubated Hospitalist Physical - Physical exam Narrative exam: GEN: Severely Gale contacted BMI 15.4, comatose HEENT: NCAT, NG tube and ET tube in place NECK: supple, no adenopathy, no thyromegaly, no JVD CVS/HEART: RRR, NORMAL S1S2, NO JVD, pulses present bilaterally CHEST/LUNGS: Symmetrical chest expansion, good air entry bilaterally GI/Abdomen: soft, ND, good bowel sounds, no guarding or rebound /Bladder: no suprapubic tenderness, no CVA or paraspinal tenderness EXT/Skin: no obvious rash Neuro: comatose, doesn't follow commands Psych: Unresponsive - Constitutional Vitals: Temp Pulse Resp BP Pulse Ox 99.1 F 96 H 17 123/82 100 04/08/17 03:44 04/08/17 11:21 04/08/17 08:01 04/08/17 11:21 04/08/17 11:21 General appearance: Present: no acute distress, well-nourished Results - Labs CBC & Chem 7: 03/29/17 04:32 03/29/17 04:32 Labs: Laboratory Last Values WBC 6.3 K/mm3 (4.5-11.0) 03/29/17 04:32 RBC 4.23 M/mm3 (3.65-5.03) 03/29/17 04:32 Hgb 10.6 gm/dl (11.8-15.2) L 03/29/17 04:32 Hct 32.9 % (35.5-45.6) L 03/29/17 04:32 MCV 78 fl (84-94) L 03/29/17 04:32 MCH 25 pg (28-32) L 03/29/17 04:32 MCHC 32 % (32-34) 03/29/17 04:32 RDW 17.6 % (13.2-15.2) H 03/29/17 04:32 Plt Count 355 K/mm3 (140-440) 03/29/17 04:32 Lymph % (Auto) 38.0 % (13.4-35.0) H 03/29/17 04:32 [place] % (Auto) 9.7 % (0.0-7.3) H 03/29/17 04:32 Eos % (Auto) 3.1 % (0.0-4.3) 03/29/17 04:32 Baso % (Auto) 0.7 % (0.0-1.8) 03/29/17 04:32 Lymph # 2.4 K/mm3 (1.2-5.4) 03/29/17 04:32 [place] # 0.6 K/mm3 (0.0-0.8) 03/29/17 04:32 Eos # 0.2 K/mm3 (0.0-0.4) 03/29/17 04:32 Baso # 0.0 K/mm3 (0.0-0.1) 03/29/17 04:32 Add Manual Diff Complete 01/10/17 04:30 Total Counted 100 01/10/17 04:30 Seg Neutrophils % 48.5 % (40.0-70.0) 03/29/17 04:32 Seg Neuts % (Manual) 88.0 % (40.0-70.0) H 01/10/17 04:30 Band Neutrophils % 7.0 % 01/10/17 04:30 Lymphocytes % (Manual) 4.0 % (13.4-35.0) L 01/10/17 04:30 Reactive Lymphs % (Man) 0 % 01/10/17 04:30 Monocytes % (Manual) 1.0 % (0.0-7.3) 01/10/17 04:30 Eosinophils % (Manual) 0 % (0.0-4.3) 01/10/17 04:30 Basophils % (Manual) 0 % (0.0-1.8) 01/10/17 04:30 Metamyelocytes % 0 % 01/10/17 04:30 Myelocytes % 0 % 01/10/17 04:30 Promyelocytes % 0 % 01/10/17 04:30 Blast Cells % 0 % 01/10/17 04:30 Nucleated RBC % Not Reportable 01/10/17 04:30 Seg Neutrophils # 3.0 K/mm3 (1.8-7.7) 03/29/17 04:32 Seg Neutrophils # Man 21.2 K/mm3 (1.8-7.7) H 01/10/17 04:30 Band Neutrophils # 1.7 K/mm3 01/10/17 04:30 Lymphocytes # (Manual) 1.0 K/mm3 (1.2-5.4) L 01/10/17 04:30 Abs React Lymphs (Man) 0.0 K/mm3 01/10/17 04:30 Monocytes # (Manual) 0.2 K/mm3 (0.0-0.8) 01/10/17 04:30 Eosinophils # (Manual) 0.0 K/mm3 (0.0-0.4) 01/10/17 04:30 Basophils # (Manual) 0.0 K/mm3 (0.0-0.1) 01/10/17 04:30 Metamyelocytes # 0.0 K/mm3 01/10/17 04:30 Myelocytes # 0.0 K/mm3 01/10/17 04:30 Promyelocytes # 0.0 K/mm3 01/10/17 04:30 Blast Cells # 0.0 K/mm3 01/10/17 04:30 WBC Morphology Not Reportable 01/10/17 04:30 Hypersegmented Neuts Not Reportable 01/10/17 04:30 Hyposegmented Neuts Not Reportable 01/10/17 04:30 Hypogranular Neuts Not Reportable 01/10/17 04:30 Smudge Cells Not Reportable 01/10/17 04:30 Toxic Granulation Not Reportable 01/10/17 04:30 Toxic Vacuolation Not Reportable 01/10/17 04:30 Dohle Bodies Not Reportable 01/10/17 04:30 Pelger-Huet Anomaly Not Reportable 01/10/17 04:30 [place] Rods Not Reportable 01/10/17 04:30 Platelet Estimate Consistent w auto 01/10/17 04:30 Clumped Platelets Not Reportable 01/10/17 04:30 Plt Clumps, EDTA Not Reportable 01/10/17 04:30 Large Platelets Not Reportable 01/10/17 04:30 Giant Platelets Not Reportable 01/10/17 04:30 Platelet Satelliting Not Reportable 01/10/17 04:30 Plt Morphology Comment Not Reportable 01/10/17 04:30 RBC Morphology Not Reportable 01/10/17 04:30 Dimorphic RBCs Not Reportable 01/10/17 04:30 Polychromasia Not Reportable 01/10/17 04:30 Hypochromasia 1+ 01/10/17 04:30 Poikilocytosis Not Reportable 01/10/17 04:30 Anisocytosis Not Reportable 01/10/17 04:30 Microcytosis Not Reportable 01/10/17 04:30 Macrocytosis Not Reportable 01/10/17 04:30 Spherocytes Not Reportable 01/10/17 04:30 Pappenheimer Bodies Not Reportable 01/10/17 04:30 Sickle Cells Not Reportable 01/10/17 04:30 Target Cells Not Reportable 01/10/17 04:30 Tear Drop Cells Not Reportable 01/10/17 04:30 Ovalocytes Not Reportable 01/10/17 04:30 Helmet Cells Not Reportable 01/10/17 04:30 [place] Bodies Not Reportable 01/10/17 04:30 [place] Rings Not Reportable 01/10/17 04:30 Jessica Cells Not Reportable 01/10/17 04:30 Bite Cells Not Reportable 01/10/17 04:30 Crenated Cell Not Reportable 01/10/17 04:30 Elliptocytes Not Reportable 01/10/17 04:30 Acanthocytes (Spur) Not Reportable 01/10/17 04:30 Rouleaux Not Reportable 01/10/17 04:30 Hemoglobin C Crystals Not Reportable 01/10/17 04:30 Schistocytes Not Reportable 01/10/17 04:30 Malaria parasites Not Reportable 01/10/17 04:30 Kyle Bodies Not Reportable 01/10/17 04:30 Hem Pathologist Commnt No 01/10/17 04:30 PT 14.1 Sec. (12.2-14.9) 01/17/17 04:10 INR 1.04 (0.87-1.13) 01/17/17 04:10 APTT 36.6 Sec. (24.2-36.6) 01/17/17 04:10 POC ABG pH 7.442 (7.35-7.45) 01/31/17 18:55 ABG pH 7.420 pH Units (7.350-7.450) 01/17/17 04:35 POC ABG pCO2 32.8 (35-45) L 01/31/17 18:55 ABG pCO2 34.5 mm Hg 01/17/17 04:35 POC ABG pO2 82 (80-105) 01/31/17 18:55 ABG pO2 160.3 mm Hg (80.0-90.0) H 01/17/17 04:35 POC ABG HCO3 22.4 01/31/17 18:55 ABG HCO3 21.9 mmol/L (20.0-26.0) 01/17/17 04:35 POC ABG Total CO2 23 01/31/17 18:55 POC ABG O2 Sat 97 01/31/17 18:55 ABG O2 Saturation 99.0 % (95.0-99.0) 01/17/17 04:35 ABG O2 Content 11.1 (0.0-44) 01/17/17 04:35 POC ABG Base Excess -2 01/31/17 18:55 ABG Base Excess -2.3 mmol/L (-2.0-3.0) L 01/17/17 04:35 ABG Hemoglobin 7.9 gm/dl (14.0-18.0) L 01/17/17 04:35 ABG Carboxyhemoglobin 1.5 % (0.0-5.0) 01/17/17 04:35 ABG Methemoglobin 0.5 % (0.0-1.5) 01/17/17 04:35 VBG pH 7.284 (7.320-7.420) L 01/09/17 10:16 Oxyhemoglobin 97.1 % (95.0-99.0) 01/17/17 04:35 FiO2 25 % 01/31/17 18:55 Sodium 132 mmol/L (137-145) L 03/29/17 04:32 Potassium 4.5 mmol/L (3.6-5.0) 03/29/17 04:32 Chloride 94.0 mmol/L (98-107) L 03/29/17 04:32 Carbon Dioxide 26 mmol/L (22-30) 03/29/17 04:32 Anion Gap 17 mmol/L 03/29/17 04:32 BUN 28 mg/dL (9-20) H 03/29/17 04:32 Creatinine 0.5 mg/dL (0.8-1.5) L 03/29/17 04:32 Estimated GFR > 60 ml/min 03/29/17 04:32 BUN/Creatinine Ratio 56 % 03/29/17 04:32 Glucose 236 mg/dL (75-100) H 03/29/17 04:32 POC Glucose 314 (70-105) H 04/08/17 05:28 Lactic Acid 0.80 mmol/L (0.7-2.0) 01/30/17 11:49 Calcium 9.2 mg/dL (8.4-10.2) 03/29/17 04:32 Phosphorus 3.10 mg/dL (2.5-4.5) 03/29/17 04:32 Magnesium 1.90 mg/dL (1.7-2.3) 03/29/17 04:32 Total Bilirubin 0.30 mg/dL (0.1-1.2) 03/29/17 04:32 AST 40 units/L (5-40) 03/29/17 04:32 ALT 71 units/L (7-56) H 03/29/17 04:32 Alkaline Phosphatase 391 units/L (35-129) H 03/29/17 04:32 Ammonia 35.0 umol/L (25-60) 01/09/17 10:16 Total Creatine Kinase 135 units/L (55-170) 01/09/17 10:16 CK-MB (CK-2) 7.1 ng/mL (0.0-4.0) H 01/09/17 10:16 CK-MB (CK-2) Rel Index 5.2 (0-4) H 01/09/17 10:16 Troponin T < 0.010 ng/mL (0.00-0.029) 01/09/17 10:16 NT-Pro-B Natriuret Pep 602.9 pg/mL (0-900) 01/09/17 10:16 Total Protein 8.3 g/dL (6.3-8.2) H 03/29/17 04:32 Albumin 2.9 g/dL (3.9-5) L 03/29/17 04:32 Albumin/Globulin Ratio 0.5 % 03/29/17 04:32 TSH 52.800 mlU/mL (0.270-4.200) H 01/09/17 10:16 Free T4 0.78 ng/dL (0.76-1.46) 01/09/17 10:16 Total Cortisol 54.8 mcg/dL () 01/09/17 16:19 Urine Color Yellow (Yellow) 01/28/17 17:52 Urine Turbidity Clear (Clear) 01/28/17 17:52 Urine pH 6.0 (5.0-7.0) 01/28/17 17:52 Ur Specific [place] 1.016 (1.003-1.030) 01/28/17 17:52 Urine Protein 100 mg/dl mg/dL (Negative) 01/28/17 17:52 Urine Glucose (UA) >=500 mg/dL (Negative) 01/28/17 17:52 Urine Ketones Neg mg/dL (Negative) 01/28/17 17:52 Urine Blood Sm (Negative) 01/28/17 17:52 Urine Nitrite Neg (Negative) 01/28/17 17:52 Urine Bilirubin Neg (Negative) 01/28/17 17:52 Urine Urobilinogen < 2.0 mg/dL (<2.0) 01/28/17 17:52 Ur Leukocyte Esterase Lg (Negative) 01/28/17 17:52 Urine WBC (Auto) > 182.0 /HPF (0.0-6.0) H 01/28/17 17:52 Urine RBC (Auto) 113.0 /HPF (0.0-6.0) 01/28/17 17:52 Urine Bacteria (Auto) 2+ /HPF (Negative) 01/28/17 17:52 Urine WBC Clumps 3+ /HPF 01/28/17 17:52 Urine Mucus Few /HPF 01/14/17 14:07 Urine Yeast (Budding) 3+ /HPF 01/14/17 14:07 Salicylates < 0.3 mg/dL (2.8-20.0) L 01/09/17 10:16 Urine Opiates Screen Presumptive negative 01/09/17 10:23 Urine Methadone Screen Presumptive negative 01/09/17 10:23 Acetaminophen < 15.0 ug/mL (10.0-30.0) 01/09/17 10:16 Ur Barbiturates Screen Presumptive negative 01/09/17 10:23 Ur Phencyclidine Scrn Presumptive negative 01/09/17 10:23 Ur Amphetamines Screen Presumptive negative 01/09/17 10:23 U Benzodiazepines Scrn Presumptive negative 01/09/17 10:23 Urine Cocaine Screen Presumptive negative 01/09/17 10:23 U Marijuana (THC) Screen Presumptive negative 01/09/17 10:23 Drugs of Abuse Note Disclamer 01/09/17 10:23 Plasma/Serum Alcohol < 0.01 gm% (0-0.07) 01/09/17 10:16
--- NOTE | 2017-04-08 13:23 | Progress Note ---
Assessment and Plan Imp: 1. Hypoglycemia/hypothermia -> suspect due to too much insulin 2. Hypothyroidism; doubt myxedema coma with normal free T4 3. Acute respiratory failure, hypoxia 4. UTI/SIRS 5. Metabolic encephalopathy Rec: 1. GI/DVT PPx/TFs 2. Reviewed chart; ethics note 01/18/17 recommended AND and "hospice"; trying to get guardianship to sign necessary orders for this (however, I was told they are not willing to sign for withdrawal of ventilator); further care felt to be futile and would only prolong potential suffering without affecting ultimate outcome 3. Comfort care, no escalation of care; would not check any further labs; would not work him up for infections in setting of fever, only treat w/ Tylenol for palliative purposes 4. Poor prognosis Unable to locate family. Subjective Date of service: 04/08/17 Principal diagnosis: Acute respiratory failure,encephalopathy Interval history: No events. On vent. Unresponsive. + Fevers. Active Medications Acetaminophen (Tylenol) 650 mg FEEDTUBE Q6H PRN PRN Reason: Non Cardiac Pain Or Temp>101 Last Admin: 04/07/17 21:26 Dose: 650 mg Lipase/Protease/Amylase (Pancreaze Dr 10,500 Unit) 1 each FEEDTUBE PRN PRN PRN Reason: For Clogged Feeding Tube Famotidine (Pepcid) 20 mg PO BID [facility] Last Admin: 04/08/17 10:22 Dose: 20 mg Heparin Sodium (Porcine) (Heparin) 5,000 unit SUB-Q Q12HR [facility] Last Admin: 04/08/17 10:22 Dose: 5,000 unit Hydrophilic Ointment (Vaseline Lip Therapy) 1 applic TP Q2HR PRN PRN Reason: Dry Lips Insulin Detemir (Levemir) 15 units SUB-Q DAILY [facility] Last Admin: 03/09/17 10:15 Dose: 15 units Insulin Human Regular (Novolin R) 0 units SUB-Q Q8HR [facility] PRN Reason: Protocol Last Admin: 04/08/17 05:58 Dose: 8 units Levothyroxine Sodium (Synthroid) 100 mcg PO DAILY@0600 [facility] Last Admin: 04/08/17 05:58 Dose: 100 mcg Multi-Ingred Cream/Lotion/Oil/Oint (Artificial Tears Ophth Oint) 1 applic OU Q4HR PRN PRN Reason: Dry Eye(s) Simple Syrup (Simple Syrup) 15 ml FEEDTUBE PRN PRN PRN Reason: Hypoglycemia Last Admin: 02/28/17 18:56 Dose: 15 ml Simple Syrup (Simple Syrup) 30 ml FEEDTUBE PRN PRN PRN Reason: Hypoglycemia Sodium Bicarbonate (Sodium Bicarbonate) 325 mg FEEDTUBE PRN PRN PRN Reason: For Clogged Feeding Tube Objective Vital Signs - 12hr 04/08/17 04/08/17 04/08/17 02:00 03:21 03:44 Temperature 99.1 F Pulse Rate 83 89 Respiratory 15 Rate Blood Pressure 104/70 O2 Sat by Pulse 100 Oximetry 04/08/17 04/08/17 04/08/17 03:45 04:00 06:00 Temperature Pulse Rate 85 88 94 H Respiratory 16 14 Rate Blood Pressure 104/70 104/70 104/70 O2 Sat by Pulse 100 100 100 Oximetry 04/08/17 04/08/17 04/08/17 07:58 08:00 08:01 Temperature Pulse Rate 99 H 96 H 96 H Respiratory 18 17 Rate Blood Pressure 104/70 123/82 104/70 O2 Sat by Pulse 100 100 100 Oximetry 04/08/17 04/08/17 04/08/17 10:00 11:21 12:00 Temperature Pulse Rate 98 H 96 H 96 H Respiratory 14 13 Rate Blood Pressure 123/82 123/82 123/82 O2 Sat by Pulse 100 100 100 Oximetry 04/08/17 13:02 Temperature 102.2 F H Pulse Rate Respiratory Rate Blood Pressure O2 Sat by Pulse Oximetry Constitutional: no acute distress, comatose Eyes: non-icteric ENT: oropharynx moist Neck: supple, no JVD Effort: normal Ascultation: Bilateral: clear Cardiovascular: regular rate and rhythm (no mrg) Gastrointestinal: normoactive bowel sounds, soft, non-tender, non-distended Integumentary: normal Extremities: no cyanosis, no edema, pink and warm Neurologic: pupils equal and round, other (minimal responsive,no posturing, otherwise no changes, not following any commands. ) Psychiatric: other (unable to obtain) CBC and BMP: 03/29/17 04:32 03/29/17 04:32 ABG, PT/INR, D-dimer: ABG POC ABG pH 7.442 (7.35-7.45) 01/31/17 18:55 ABG pH 7.420 pH Units (7.350-7.450) 01/17/17 04:35 POC ABG pCO2 32.8 (35-45) L 01/31/17 18:55 ABG pCO2 34.5 mm Hg 01/17/17 04:35 POC ABG pO2 82 (80-105) 01/31/17 18:55 ABG pO2 160.3 mm Hg (80.0-90.0) H 01/17/17 04:35 POC ABG HCO3 22.4 01/31/17 18:55 POC ABG Total CO2 23 01/31/17 18:55 POC ABG O2 Sat 97 01/31/17 18:55 ABG O2 Saturation 99.0 % (95.0-99.0) 01/17/17 04:35 PT/INR, D-dimer PT 14.1 Sec. (12.2-14.9) 01/17/17 04:10 INR 1.04 (0.87-1.13) 01/17/17 04:10 Abnormal lab findings: Abnormal Labs 01/09/17 01/09/17 01/09/17 10:16 10:16 10:16 WBC RBC Hgb 9.7 L Hct 28.4 L MCV 76 L MCH 26 L RDW 17.2 H Plt Count 448 H Lymph % (Auto) Moody % (Auto) Eos % (Auto) Seg Neutrophils % 79.5 H Seg Neuts % (Manual) Lymphocytes % (Manual) Seg Neutrophils # Seg Neutrophils # Man Lymphocytes # (Manual) APTT 39.6 H POC ABG pH ABG pH POC ABG pCO2 POC ABG pO2 ABG pO2 ABG HCO3 ABG Base Excess ABG Hemoglobin VBG pH Oxyhemoglobin Sodium 132 L Potassium Chloride 96.7 L Carbon Dioxide 21 L BUN 34 H Creatinine Glucose POC Glucose Lactic Acid Calcium 8.3 L AST ALT Alkaline Phosphatase 151 H CK-MB (CK-2) 7.1 H CK-MB (CK-2) Rel Index 5.2 H Total Protein Albumin 3.3 L TSH Urine WBC (Auto) Salicylates 01/09/17 01/09/17 01/09/17 10:16 10:16 10:16 WBC RBC Hgb Hct MCV MCH RDW Plt Count Lymph % (Auto) Moody % (Auto) Eos % (Auto) Seg Neutrophils % Seg Neuts % (Manual) Lymphocytes % (Manual) Seg Neutrophils # Seg Neutrophils # Man Lymphocytes # (Manual) APTT POC ABG pH ABG pH POC ABG pCO2 POC ABG pO2 ABG pO2 ABG HCO3 ABG Base Excess ABG Hemoglobin VBG pH 7.284 L Oxyhemoglobin Sodium Potassium Chloride Carbon Dioxide BUN Creatinine Glucose POC Glucose Lactic Acid Calcium AST ALT Alkaline Phosphatase CK-MB (CK-2) CK-MB (CK-2) Rel Index Total Protein Albumin TSH 52.800 H Urine WBC (Auto) Salicylates < 0.3 L 01/09/17 01/09/17 01/09/17 10:23 11:14 12:49 WBC RBC Hgb Hct MCV MCH RDW Plt Count Lymph % (Auto) Moody % (Auto) Eos % (Auto) Seg Neutrophils % Seg Neuts % (Manual) Lymphocytes % (Manual) Seg Neutrophils # Seg Neutrophils # Man Lymphocytes # (Manual) APTT POC ABG pH ABG pH POC ABG pCO2 POC ABG pO2 643 H ABG pO2 ABG HCO3 ABG Base Excess ABG Hemoglobin VBG pH Oxyhemoglobin Sodium Potassium Chloride Carbon Dioxide BUN Creatinine Glucose POC Glucose < 40 L Lactic Acid Calcium AST ALT Alkaline Phosphatase CK-MB (CK-2) CK-MB (CK-2) Rel Index Total Protein Albumin TSH Urine WBC (Auto) 61.0 H Salicylates 01/09/17 01/09/17 01/09/17 13:13 14:21 15:09 WBC RBC Hgb Hct MCV MCH RDW Plt Count Lymph % (Auto) Moody % (Auto) Eos % (Auto) Seg Neutrophils % Seg Neuts % (Manual) Lymphocytes % (Manual) Seg Neutrophils # Seg Neutrophils # Man Lymphocytes # (Manual) APTT POC ABG pH ABG pH POC ABG pCO2 POC ABG pO2 ABG pO2 ABG HCO3 ABG Base Excess ABG Hemoglobin VBG pH Oxyhemoglobin Sodium Potassium Chloride Carbon Dioxide BUN Creatinine Glucose POC Glucose 128 H 65 L 120 H Lactic Acid Calcium AST ALT Alkaline Phosphatase CK-MB (CK-2) CK-MB (CK-2) Rel Index Total Protein Albumin TSH Urine WBC (Auto) Salicylates 01/09/17 01/09/17 01/10/17 16:28 17:14 04:30 WBC 24.1 H RBC 3.38 L Hgb 8.5 L Hct 26.0 L MCV 77 L MCH 25 L RDW 17.9 H Plt Count 474 H Lymph % (Auto) Moody % (Auto) Eos % (Auto) Seg Neutrophils % Seg Neuts % (Manual) 88.0 H Lymphocytes % (Manual) 4.0 L Seg Neutrophils # Seg Neutrophils # Man 21.2 H Lymphocytes # (Manual) 1.0 L APTT POC ABG pH ABG pH POC ABG pCO2 POC ABG pO2 ABG pO2 ABG HCO3 ABG Base Excess ABG Hemoglobin VBG pH Oxyhemoglobin Sodium Potassium Chloride Carbon Dioxide BUN Creatinine Glucose POC Glucose 44 L 112 H Lactic Acid Calcium AST ALT Alkaline Phosphatase CK-MB (CK-2) CK-MB (CK-2) Rel Index Total Protein Albumin TSH Urine WBC (Auto) Salicylates 01/10/17 01/10/17 01/10/17 04:30 05:41 05:45 WBC RBC Hgb Hct MCV MCH RDW Plt Count Lymph % (Auto) Moody % (Auto) Eos % (Auto) Seg Neutrophils % Seg Neuts % (Manual) Lymphocytes % (Manual) Seg Neutrophils # Seg Neutrophils # Man Lymphocytes # (Manual) APTT POC ABG pH ABG pH POC ABG pCO2 26.6 L POC ABG pO2 207 H ABG pO2 ABG HCO3 ABG Base Excess ABG Hemoglobin VBG pH Oxyhemoglobin Sodium Potassium Chloride Carbon Dioxide 17 L BUN 27 H Creatinine Glucose POC Glucose 68 L Lactic Acid Calcium 7.5 L AST ALT Alkaline Phosphatase CK-MB (CK-2) CK-MB (CK-2) Rel Index Total Protein Albumin TSH Urine WBC (Auto) Salicylates 01/10/17 01/10/17 01/10/17 07:47 10:50 13:41 WBC RBC Hgb Hct MCV MCH RDW Plt Count Lymph % (Auto) Moody % (Auto) Eos % (Auto) Seg Neutrophils % Seg Neuts % (Manual) Lymphocytes % (Manual) Seg Neutrophils # Seg Neutrophils # Man Lymphocytes # (Manual) APTT POC ABG pH ABG pH POC ABG pCO2 POC ABG pO2 ABG pO2 ABG HCO3 ABG Base Excess ABG Hemoglobin VBG pH Oxyhemoglobin Sodium Potassium Chloride Carbon Dioxide BUN Creatinine Glucose POC Glucose 148 H 165 H 114 H Lactic Acid Calcium AST ALT Alkaline Phosphatase CK-MB (CK-2) CK-MB (CK-2) Rel Index Total Protein Albumin TSH Urine WBC (Auto) Salicylates 01/10/17 01/10/17 01/10/17 20:20 21:39 23:24 WBC RBC Hgb Hct MCV MCH RDW Plt Count Lymph % (Auto) Moody % (Auto) Eos % (Auto) Seg Neutrophils % Seg Neuts % (Manual) Lymphocytes % (Manual) Seg Neutrophils # Seg Neutrophils # Man Lymphocytes # (Manual) APTT POC ABG pH ABG pH POC ABG pCO2 POC ABG pO2 ABG pO2 ABG HCO3 ABG Base Excess ABG Hemoglobin VBG pH Oxyhemoglobin Sodium Potassium Chloride Carbon Dioxide BUN Creatinine Glucose POC Glucose 150 H 175 H 155 H Lactic Acid Calcium AST ALT Alkaline Phosphatase CK-MB (CK-2) CK-MB (CK-2) Rel Index Total Protein Albumin TSH Urine WBC (Auto) Salicylates 01/11/17 01/11/17 01/11/17 00:19 04:06 05:20 WBC 15.2 H RBC 3.40 L Hgb 8.9 L Hct 26.3 L MCV 78 L MCH 26 L RDW 18.6 H Plt Count 462 H Lymph % (Auto) 13.2 L Moody % (Auto) Eos % (Auto) Seg Neutrophils % 80.8 H Seg Neuts % (Manual) Lymphocytes % (Manual) Seg Neutrophils # 12.3 H Seg Neutrophils # Man Lymphocytes # (Manual) APTT POC ABG pH 7.463 H ABG pH POC ABG pCO2 26.2 L POC ABG pO2 185 H ABG pO2 ABG HCO3 ABG Base Excess ABG Hemoglobin VBG pH Oxyhemoglobin Sodium Potassium Chloride Carbon Dioxide BUN Creatinine Glucose POC Glucose 163 H Lactic Acid Calcium AST ALT Alkaline Phosphatase CK-MB (CK-2) CK-MB (CK-2) Rel Index Total Protein Albumin TSH Urine WBC (Auto) Salicylates 01/11/17 01/11/17 01/11/17 05:20 06:21 07:57 WBC RBC Hgb Hct MCV MCH RDW Plt Count Lymph % (Auto) Moody % (Auto) Eos % (Auto) Seg Neutrophils % Seg Neuts % (Manual) Lymphocytes % (Manual) Seg Neutrophils # Seg Neutrophils # Man Lymphocytes # (Manual) APTT POC ABG pH ABG pH POC ABG pCO2 POC ABG pO2 ABG pO2 ABG HCO3 ABG Base Excess ABG Hemoglobin VBG pH Oxyhemoglobin Sodium Potassium 3.4 L Chloride 111.5 H Carbon Dioxide 17 L BUN Creatinine Glucose 147 H POC Glucose 139 H 188 H Lactic Acid Calcium 8.0 L AST ALT Alkaline Phosphatase CK-MB (CK-2) CK-MB (CK-2) Rel Index Total Protein Albumin TSH Urine WBC (Auto) Salicylates 01/11/17 01/11/17 01/11/17 11:46 16:50 23:15 WBC RBC Hgb Hct MCV MCH RDW Plt Count Lymph % (Auto) Moody % (Auto) Eos % (Auto) Seg Neutrophils % Seg Neuts % (Manual) Lymphocytes % (Manual) Seg Neutrophils # Seg Neutrophils # Man Lymphocytes # (Manual) APTT POC ABG pH ABG pH POC ABG pCO2 POC ABG pO2 ABG pO2 ABG HCO3 ABG Base Excess ABG Hemoglobin VBG pH Oxyhemoglobin Sodium Potassium Chloride Carbon Dioxide BUN Creatinine Glucose POC Glucose 199 H 235 H 155 H Lactic Acid Calcium AST ALT Alkaline Phosphatase CK-MB (CK-2) CK-MB (CK-2) Rel Index Total Protein Albumin TSH Urine WBC (Auto) Salicylates 01/12/17 01/12/17 01/12/17 05:02 06:56 14:50 WBC RBC Hgb Hct MCV MCH RDW Plt Count Lymph % (Auto) Moody % (Auto) Eos % (Auto) Seg Neutrophils % Seg Neuts % (Manual) Lymphocytes % (Manual) Seg Neutrophils # Seg Neutrophils # Man Lymphocytes # (Manual) APTT POC ABG pH ABG pH POC ABG pCO2 28.0 L POC ABG pO2 178 H ABG pO2 ABG HCO3 ABG Base Excess ABG Hemoglobin VBG pH Oxyhemoglobin Sodium Potassium Chloride Carbon Dioxide BUN Creatinine Glucose POC Glucose 119 H 164 H Lactic Acid Calcium AST ALT Alkaline Phosphatase CK-MB (CK-2) CK-MB (CK-2) Rel Index Total Protein Albumin TSH Urine WBC (Auto) Salicylates 01/13/17 01/13/17 01/13/17 03:37 03:37 04:26 WBC RBC 3.61 L Hgb 9.3 L Hct 28.0 L MCV 78 L MCH 26 L RDW 18.2 H Plt Count Lymph % (Auto) Moody % (Auto) Eos % (Auto) Seg Neutrophils % Seg Neuts % (Manual) Lymphocytes % (Manual) Seg Neutrophils # Seg Neutrophils # Man Lymphocytes # (Manual) APTT POC ABG pH 7.485 H ABG pH POC ABG pCO2 25.4 L POC ABG pO2 73 L ABG pO2 ABG HCO3 ABG Base Excess ABG Hemoglobin VBG pH Oxyhemoglobin Sodium Potassium Chloride 112.4 H Carbon Dioxide 19 L BUN Creatinine Glucose 118 H POC Glucose Lactic Acid Calcium 8.0 L AST ALT Alkaline Phosphatase CK-MB (CK-2) CK-MB (CK-2) Rel Index Total Protein Albumin TSH Urine WBC (Auto) Salicylates 01/13/17 01/13/17 01/13/17 06:15 11:50 17:31 WBC RBC Hgb Hct MCV MCH RDW Plt Count Lymph % (Auto) Moody % (Auto) Eos % (Auto) Seg Neutrophils % Seg Neuts % (Manual) Lymphocytes % (Manual) Seg Neutrophils # Seg Neutrophils # Man Lymphocytes # (Manual) APTT POC ABG pH ABG pH POC ABG pCO2 POC ABG pO2 ABG pO2 ABG HCO3 ABG Base Excess ABG Hemoglobin VBG pH Oxyhemoglobin Sodium Potassium Chloride Carbon Dioxide BUN Creatinine Glucose POC Glucose 116 H 171 H 203 H Lactic Acid Calcium AST ALT Alkaline Phosphatase CK-MB (CK-2) CK-MB (CK-2) Rel Index Total Protein Albumin TSH Urine WBC (Auto) Salicylates 01/14/17 01/14/17 01/14/17 00:02 04:50 04:50 WBC RBC 3.32 L Hgb 8.5 L Hct 26.1 L MCV 79 L MCH 26 L RDW 18.2 H Plt Count Lymph % (Auto) Moody % (Auto) 9.0 H Eos % (Auto) Seg Neutrophils % Seg Neuts % (Manual) Lymphocytes % (Manual) Seg Neutrophils # Seg Neutrophils # Man Lymphocytes # (Manual) APTT POC ABG pH ABG pH POC ABG pCO2 POC ABG pO2 ABG pO2 ABG HCO3 ABG Base Excess ABG Hemoglobin VBG pH Oxyhemoglobin Sodium Potassium Chloride 112.5 H Carbon Dioxide BUN Creatinine Glucose 149 H POC Glucose 157 H Lactic Acid Calcium 8.1 L AST ALT Alkaline Phosphatase CK-MB (CK-2) CK-MB (CK-2) Rel Index Total Protein Albumin TSH Urine WBC (Auto) Salicylates 01/14/17 01/14/17 01/14/17 05:10 11:27 14:07 WBC RBC Hgb Hct MCV MCH RDW Plt Count Lymph % (Auto) Moody % (Auto) Eos % (Auto) Seg Neutrophils % Seg Neuts % (Manual) Lymphocytes % (Manual) Seg Neutrophils # Seg Neutrophils # Man Lymphocytes # (Manual) APTT POC ABG pH ABG pH POC ABG pCO2 POC ABG pO2 ABG pO2 ABG HCO3 ABG Base Excess ABG Hemoglobin VBG pH Oxyhemoglobin Sodium Potassium Chloride Carbon Dioxide BUN Creatinine Glucose POC Glucose 176 H 147 H Lactic Acid Calcium AST ALT Alkaline Phosphatase CK-MB (CK-2) CK-MB (CK-2) Rel Index Total Protein Albumin TSH Urine WBC (Auto) 53.0 H Salicylates 01/14/17 01/15/17 01/15/17 16:52 00:04 05:26 WBC RBC Hgb Hct MCV MCH RDW Plt Count Lymph % (Auto) Moody % (Auto) Eos % (Auto) Seg Neutrophils % Seg Neuts % (Manual) Lymphocytes % (Manual) Seg Neutrophils # Seg Neutrophils # Man Lymphocytes # (Manual) APTT POC ABG pH ABG pH POC ABG pCO2 POC ABG pO2 ABG pO2 ABG HCO3 ABG Base Excess ABG Hemoglobin VBG pH Oxyhemoglobin Sodium Potassium Chloride Carbon Dioxide BUN Creatinine Glucose POC Glucose 131 H 193 H 215 H Lactic Acid Calcium AST ALT Alkaline Phosphatase CK-MB (CK-2) CK-MB (CK-2) Rel Index Total Protein Albumin TSH Urine WBC (Auto) Salicylates 01/15/17 01/15/17 01/15/17 11:49 17:47 21:33 WBC RBC Hgb Hct MCV MCH RDW Plt Count Lymph % (Auto) Moody % (Auto) Eos % (Auto) Seg Neutrophils % Seg Neuts % (Manual) Lymphocytes % (Manual) Seg Neutrophils # Seg Neutrophils # Man Lymphocytes # (Manual) APTT POC ABG pH ABG pH POC ABG pCO2 POC ABG pO2 ABG pO2 ABG HCO3 ABG Base Excess ABG Hemoglobin VBG pH Oxyhemoglobin Sodium Potassium Chloride Carbon Dioxide BUN Creatinine Glucose POC Glucose 121 H 211 H 275 H Lactic Acid Calcium AST ALT Alkaline Phosphatase CK-MB (CK-2) CK-MB (CK-2) Rel Index Total Protein Albumin TSH Urine WBC (Auto) Salicylates 01/16/17 01/16/17 01/16/17 04:30 05:28 13:45 WBC RBC Hgb Hct MCV MCH RDW Plt Count Lymph % (Auto) Moody % (Auto) Eos % (Auto) Seg Neutrophils % Seg Neuts % (Manual) Lymphocytes % (Manual) Seg Neutrophils # Seg Neutrophils # Man Lymphocytes # (Manual) APTT POC ABG pH ABG pH 7.457 H POC ABG pCO2 POC ABG pO2 ABG pO2 55.1 L ABG HCO3 19.4 L ABG Base Excess -4.0 L ABG Hemoglobin 6.8 L VBG pH Oxyhemoglobin 94.9 L Sodium Potassium Chloride Carbon Dioxide BUN Creatinine Glucose POC Glucose 271 H 236 H Lactic Acid Calcium AST ALT Alkaline Phosphatase CK-MB (CK-2) CK-MB (CK-2) Rel Index Total Protein Albumin TSH Urine WBC (Auto) Salicylates 01/16/17 01/17/17 01/17/17 21:39 04:10 04:10 WBC 4.4 L RBC 2.98 L Hgb 7.7 L Hct 23.3 L MCV 78 L MCH 26 L RDW 18.1 H Plt Count Lymph % (Auto) Moody % (Auto) Eos % (Auto) Seg Neutrophils % Seg Neuts % (Manual) Lymphocytes % (Manual) Seg Neutrophils # Seg Neutrophils # Man Lymphocytes # (Manual) APTT POC ABG pH ABG pH POC ABG pCO2 POC ABG pO2 ABG pO2 ABG HCO3 ABG Base Excess ABG Hemoglobin VBG pH Oxyhemoglobin Sodium Potassium 3.3 L Chloride 108.7 H Carbon Dioxide 20 L BUN 8 L Creatinine Glucose 202 H POC Glucose 258 H Lactic Acid Calcium 7.6 L AST ALT Alkaline Phosphatase CK-MB (CK-2) CK-MB (CK-2) Rel Index Total Protein Albumin TSH Urine WBC (Auto) Salicylates 01/17/17 01/17/17 01/17/17 04:35 12:23 16:01 WBC RBC Hgb Hct MCV MCH RDW Plt Count Lymph % (Auto) Moody % (Auto) Eos % (Auto) Seg Neutrophils % Seg Neuts % (Manual) Lymphocytes % (Manual) Seg Neutrophils # Seg Neutrophils # Man Lymphocytes # (Manual) APTT POC ABG pH ABG pH POC ABG pCO2 POC ABG pO2 ABG pO2 160.3 H ABG HCO3 ABG Base Excess -2.3 L ABG Hemoglobin 7.9 L VBG pH Oxyhemoglobin Sodium Potassium Chloride Carbon Dioxide BUN Creatinine Glucose POC Glucose 321 H 239 H Lactic Acid Calcium AST ALT Alkaline Phosphatase CK-MB (CK-2) CK-MB (CK-2) Rel Index Total Protein Albumin TSH Urine WBC (Auto) Salicylates 01/18/17 01/18/17 01/18/17 05:07 12:09 17:54 WBC RBC Hgb Hct MCV MCH RDW Plt Count Lymph % (Auto) Moody % (Auto) Eos % (Auto) Seg Neutrophils % Seg Neuts % (Manual) Lymphocytes % (Manual) Seg Neutrophils # Seg Neutrophils # Man Lymphocytes # (Manual) APTT POC ABG pH ABG pH POC ABG pCO2 POC ABG pO2 ABG pO2 ABG HCO3 ABG Base Excess ABG Hemoglobin VBG pH Oxyhemoglobin Sodium Potassium Chloride Carbon Dioxide BUN Creatinine Glucose POC Glucose 155 H 203 H 132 H Lactic Acid Calcium AST ALT Alkaline Phosphatase CK-MB (CK-2) CK-MB (CK-2) Rel Index Total Protein Albumin TSH Urine WBC (Auto) Salicylates 01/18/17 01/19/17 01/19/17 23:43 04:28 12:11 WBC RBC Hgb Hct MCV MCH RDW Plt Count Lymph % (Auto) Moody % (Auto) Eos % (Auto) Seg Neutrophils % Seg Neuts % (Manual) Lymphocytes % (Manual) Seg Neutrophils # Seg Neutrophils # Man Lymphocytes # (Manual) APTT POC ABG pH ABG pH POC ABG pCO2 POC ABG pO2 ABG pO2 ABG HCO3 ABG Base Excess ABG Hemoglobin VBG pH Oxyhemoglobin Sodium Potassium Chloride Carbon Dioxide BUN Creatinine Glucose POC Glucose 125 H 182 H 153 H Lactic Acid Calcium AST ALT Alkaline Phosphatase CK-MB (CK-2) CK-MB (CK-2) Rel Index Total Protein Albumin TSH Urine WBC (Auto) Salicylates 01/19/17 01/20/17 01/20/17 17:23 00:12 05:44 WBC RBC Hgb Hct MCV MCH RDW Plt Count Lymph % (Auto) Moody % (Auto) Eos % (Auto) Seg Neutrophils % Seg Neuts % (Manual) Lymphocytes % (Manual) Seg Neutrophils # Seg Neutrophils # Man Lymphocytes # (Manual) APTT POC ABG pH ABG pH POC ABG pCO2 POC ABG pO2 ABG pO2 ABG HCO3 ABG Base Excess ABG Hemoglobin VBG pH Oxyhemoglobin Sodium Potassium Chloride Carbon Dioxide BUN Creatinine Glucose POC Glucose 66 L 139 H 176 H Lactic Acid Calcium AST ALT Alkaline Phosphatase CK-MB (CK-2) CK-MB (CK-2) Rel Index Total Protein Albumin TSH Urine WBC (Auto) Salicylates 01/20/17 01/20/17 01/20/17 11:48 17:42 23:43 WBC RBC Hgb Hct MCV MCH RDW Plt Count Lymph % (Auto) Moody % (Auto) Eos % (Auto) Seg Neutrophils % Seg Neuts % (Manual) Lymphocytes % (Manual) Seg Neutrophils # Seg Neutrophils # Man Lymphocytes # (Manual) APTT POC ABG pH ABG pH POC ABG pCO2 POC ABG pO2 ABG pO2 ABG HCO3 ABG Base Excess ABG Hemoglobin VBG pH Oxyhemoglobin Sodium Potassium Chloride Carbon Dioxide BUN Creatinine Glucose POC Glucose 218 H 132 H 178 H Lactic Acid Calcium AST ALT Alkaline Phosphatase CK-MB (CK-2) CK-MB (CK-2) Rel Index Total Protein Albumin TSH Urine WBC (Auto) Salicylates 01/21/17 01/21/17 01/21/17 05:34 11:17 23:37 WBC RBC Hgb Hct MCV MCH RDW Plt Count Lymph % (Auto) Moody % (Auto) Eos % (Auto) Seg Neutrophils % Seg Neuts % (Manual) Lymphocytes % (Manual) Seg Neutrophils # Seg Neutrophils # Man Lymphocytes # (Manual) APTT POC ABG pH ABG pH POC ABG pCO2 POC ABG pO2 ABG pO2 ABG HCO3 ABG Base Excess ABG Hemoglobin VBG pH Oxyhemoglobin Sodium Potassium Chloride Carbon Dioxide BUN Creatinine Glucose POC Glucose 106 H 213 H 140 H Lactic Acid Calcium AST ALT Alkaline Phosphatase CK-MB (CK-2) CK-MB (CK-2) Rel Index Total Protein Albumin TSH Urine WBC (Auto) Salicylates 01/22/17 01/22/17 01/22/17 04:00 04:00 04:58 WBC RBC 3.26 L Hgb 8.3 L Hct 25.5 L MCV 78 L MCH 25 L RDW 17.9 H Plt Count Lymph % (Auto) Moody % (Auto) 7.9 H Eos % (Auto) 6.2 H Seg Neutrophils % Seg Neuts % (Manual) Lymphocytes % (Manual) Seg Neutrophils # Seg Neutrophils # Man Lymphocytes # (Manual) APTT POC ABG pH ABG pH POC ABG pCO2 POC ABG pO2 ABG pO2 ABG HCO3 ABG Base Excess ABG Hemoglobin VBG pH Oxyhemoglobin Sodium Potassium Chloride 95.5 L Carbon Dioxide 31 H D BUN Creatinine Glucose 134 H POC Glucose 146 H Lactic Acid Calcium AST 44 H ALT Alkaline Phosphatase 379 H CK-MB (CK-2) CK-MB (CK-2) Rel Index Total Protein Albumin 2.7 L TSH Urine WBC (Auto) Salicylates 01/22/17 01/22/17 01/22/17 12:12 18:12 23:39 WBC RBC Hgb Hct MCV MCH RDW Plt Count Lymph % (Auto) Moody % (Auto) Eos % (Auto) Seg Neutrophils % Seg Neuts % (Manual) Lymphocytes % (Manual) Seg Neutrophils # Seg Neutrophils # Man Lymphocytes # (Manual) APTT POC ABG pH ABG pH POC ABG pCO2 POC ABG pO2 ABG pO2 ABG HCO3 ABG Base Excess ABG Hemoglobin VBG pH Oxyhemoglobin Sodium Potassium Chloride Carbon Dioxide BUN Creatinine Glucose POC Glucose 255 H 182 H 134 H Lactic Acid Calcium AST ALT Alkaline Phosphatase CK-MB (CK-2) CK-MB (CK-2) Rel Index Total Protein Albumin TSH Urine WBC (Auto) Salicylates 01/23/17 01/23/17 01/23/17 04:43 12:12 17:36 WBC RBC Hgb Hct MCV MCH RDW Plt Count Lymph % (Auto) Moody % (Auto) Eos % (Auto) Seg Neutrophils % Seg Neuts % (Manual) Lymphocytes % (Manual) Seg Neutrophils # Seg Neutrophils # Man Lymphocytes # (Manual) APTT POC ABG pH ABG pH POC ABG pCO2 POC ABG pO2 ABG pO2 ABG HCO3 ABG Base Excess ABG Hemoglobin VBG pH Oxyhemoglobin Sodium Potassium Chloride Carbon Dioxide BUN Creatinine Glucose POC Glucose 218 H 128 H 156 H Lactic Acid Calcium AST ALT Alkaline Phosphatase CK-MB (CK-2) CK-MB (CK-2) Rel Index Total Protein Albumin TSH Urine WBC (Auto) Salicylates 01/24/17 01/24/17 01/24/17 00:08 05:16 11:40 WBC RBC Hgb Hct MCV MCH RDW Plt Count Lymph % (Auto) Moody % (Auto) Eos % (Auto) Seg Neutrophils % Seg Neuts % (Manual) Lymphocytes % (Manual) Seg Neutrophils # Seg Neutrophils # Man Lymphocytes # (Manual) APTT POC ABG pH ABG pH POC ABG pCO2 POC ABG pO2 ABG pO2 ABG HCO3 ABG Base Excess ABG Hemoglobin VBG pH Oxyhemoglobin Sodium Potassium Chloride Carbon Dioxide BUN Creatinine Glucose POC Glucose 129 H 169 H 187 H Lactic Acid Calcium AST ALT Alkaline Phosphatase CK-MB (CK-2) CK-MB (CK-2) Rel Index Total Protein Albumin TSH Urine WBC (Auto) Salicylates 01/24/17 01/24/17 01/25/17 17:43 23:23 04:56 WBC RBC Hgb Hct MCV MCH RDW Plt Count Lymph % (Auto) Moody % (Auto) Eos % (Auto) Seg Neutrophils % Seg Neuts % (Manual) Lymphocytes % (Manual) Seg Neutrophils # Seg Neutrophils # Man Lymphocytes # (Manual) APTT POC ABG pH ABG pH POC ABG pCO2 POC ABG pO2 ABG pO2 ABG HCO3 ABG Base Excess ABG Hemoglobin VBG pH Oxyhemoglobin Sodium Potassium Chloride Carbon Dioxide BUN Creatinine Glucose POC Glucose 215 H 222 H 210 H Lactic Acid Calcium AST ALT Alkaline Phosphatase CK-MB (CK-2) CK-MB (CK-2) Rel Index Total Protein Albumin TSH Urine WBC (Auto) Salicylates 01/25/17 01/25/17 01/26/17 11:52 17:37 00:02 WBC RBC Hgb Hct MCV MCH RDW Plt Count Lymph % (Auto) Moody % (Auto) Eos % (Auto) Seg Neutrophils % Seg Neuts % (Manual) Lymphocytes % (Manual) Seg Neutrophils # Seg Neutrophils # Man Lymphocytes # (Manual) APTT POC ABG pH ABG pH POC ABG pCO2 POC ABG pO2 ABG pO2 ABG HCO3 ABG Base Excess ABG Hemoglobin VBG pH Oxyhemoglobin Sodium Potassium Chloride Carbon Dioxide BUN Creatinine Glucose POC Glucose 284 H 218 H 192 H Lactic Acid Calcium AST ALT Alkaline Phosphatase CK-MB (CK-2) CK-MB (CK-2) Rel Index Total Protein Albumin TSH Urine WBC (Auto) Salicylates 01/26/17 01/26/17 01/26/17 05:33 12:17 17:50 WBC RBC Hgb Hct MCV MCH RDW Plt Count Lymph % (Auto) Moody % (Auto) Eos % (Auto) Seg Neutrophils % Seg Neuts % (Manual) Lymphocytes % (Manual) Seg Neutrophils # Seg Neutrophils # Man Lymphocytes # (Manual) APTT POC ABG pH ABG pH POC ABG pCO2 POC ABG pO2 ABG pO2 ABG HCO3 ABG Base Excess ABG Hemoglobin VBG pH Oxyhemoglobin Sodium Potassium Chloride Carbon Dioxide BUN Creatinine Glucose POC Glucose 199 H 227 H 229 H Lactic Acid Calcium AST ALT Alkaline Phosphatase CK-MB (CK-2) CK-MB (CK-2) Rel Index Total Protein Albumin TSH Urine WBC (Auto) Salicylates 01/26/17 01/27/17 01/27/17 23:57 05:31 11:42 WBC RBC Hgb Hct MCV MCH RDW Plt Count Lymph % (Auto) Moody % (Auto) Eos % (Auto) Seg Neutrophils % Seg Neuts % (Manual) Lymphocytes % (Manual) Seg Neutrophils # Seg Neutrophils # Man Lymphocytes # (Manual) APTT POC ABG pH ABG pH POC ABG pCO2 POC ABG pO2 ABG pO2 ABG HCO3 ABG Base Excess ABG Hemoglobin VBG pH Oxyhemoglobin Sodium Potassium Chloride Carbon Dioxide BUN Creatinine Glucose POC Glucose 186 H 285 H 260 H Lactic Acid Calcium AST ALT Alkaline Phosphatase CK-MB (CK-2) CK-MB (CK-2) Rel Index Total Protein Albumin TSH Urine WBC (Auto) Salicylates 01/27/17 01/27/17 01/27/17 17:47 23:58 Unknown WBC 12.1 H RBC 3.28 L Hgb 8.5 L Hct 25.5 L MCV 78 L MCH 26 L RDW 16.8 H Plt Count 601 H Lymph % (Auto) Moody % (Auto) Eos % (Auto) Seg Neutrophils % Seg Neuts % (Manual) Lymphocytes % (Manual) Seg Neutrophils # Seg Neutrophils # Man Lymphocytes # (Manual) APTT POC ABG pH ABG pH POC ABG pCO2 POC ABG pO2 ABG pO2 ABG HCO3 ABG Base Excess ABG Hemoglobin VBG pH Oxyhemoglobin Sodium Potassium Chloride Carbon Dioxide BUN Creatinine Glucose POC Glucose 329 H 225 H Lactic Acid Calcium AST ALT Alkaline Phosphatase CK-MB (CK-2) CK-MB (CK-2) Rel Index Total Protein Albumin TSH Urine WBC (Auto) Salicylates 01/27/17 01/28/17 01/28/17 Unknown 03:44 03:44 WBC RBC 3.14 L Hgb 8.2 L Hct 24.1 L MCV 77 L MCH 26 L RDW 16.9 H Plt Count 567 H Lymph % (Auto) Moody % (Auto) Eos % (Auto) Seg Neutrophils % Seg Neuts % (Manual) Lymphocytes % (Manual) Seg Neutrophils # Seg Neutrophils # Man Lymphocytes # (Manual) APTT POC ABG pH ABG pH POC ABG pCO2 POC ABG pO2 ABG pO2 ABG HCO3 ABG Base Excess ABG Hemoglobin VBG pH Oxyhemoglobin Sodium 128 L Potassium 5.4 H Chloride 87.5 L Carbon Dioxide BUN 44 H 42 H Creatinine Glucose 250 H 128 H POC Glucose Lactic Acid Calcium AST ALT Alkaline Phosphatase CK-MB (CK-2) CK-MB (CK-2) Rel Index Total Protein Albumin TSH Urine WBC (Auto) Salicylates 01/28/17 01/28/17 01/28/17 11:43 16:47 17:52 WBC RBC Hgb Hct MCV MCH RDW Plt Count Lymph % (Auto) Moody % (Auto) Eos % (Auto) Seg Neutrophils % Seg Neuts % (Manual) Lymphocytes % (Manual) Seg Neutrophils # Seg Neutrophils # Man Lymphocytes # (Manual) APTT POC ABG pH ABG pH POC ABG pCO2 POC ABG pO2 ABG pO2 ABG HCO3 ABG Base Excess ABG Hemoglobin VBG pH Oxyhemoglobin Sodium Potassium Chloride Carbon Dioxide BUN Creatinine Glucose POC Glucose 351 H 249 H Lactic Acid Calcium AST ALT Alkaline Phosphatase CK-MB (CK-2) CK-MB (CK-2) Rel Index Total Protein Albumin TSH Urine WBC (Auto) > 182.0 H Salicylates 01/29/17 01/29/17 01/29/17 05:25 05:25 09:32 WBC 13.6 H RBC 3.25 L Hgb 8.3 L Hct 25.1 L MCV 77 L MCH 26 L RDW 16.8 H Plt Count 514 H Lymph % (Auto) Moody % (Auto) Eos % (Auto) Seg Neutrophils % Seg Neuts % (Manual) Lymphocytes % (Manual) Seg Neutrophils # Seg Neutrophils # Man Lymphocytes # (Manual) APTT POC ABG pH ABG pH POC ABG pCO2 POC ABG pO2 ABG pO2 ABG HCO3 ABG Base Excess ABG Hemoglobin VBG pH Oxyhemoglobin Sodium Potassium Chloride 97.8 L Carbon Dioxide BUN 34 H Creatinine Glucose 222 H POC Glucose Lactic Acid 2.50 H* Calcium AST ALT Alkaline Phosphatase CK-MB (CK-2) CK-MB (CK-2) Rel Index Total Protein Albumin TSH Urine WBC (Auto) Salicylates 1001/29/17 01/29/17 11:56 18:11 23:55 WBC RBC Hgb Hct MCV MCH RDW Plt Count Lymph % (Auto) Moody % (Auto) Eos % (Auto) Seg Neutrophils % Seg Neuts % (Manual) Lymphocytes % (Manual) Seg Neutrophils # Seg Neutrophils # Man Lymphocytes # (Manual) APTT POC ABG pH ABG pH POC ABG pCO2 POC ABG pO2 ABG pO2 ABG HCO3 ABG Base Excess ABG Hemoglobin VBG pH Oxyhemoglobin Sodium Potassium Chloride Carbon Dioxide BUN Creatinine Glucose POC Glucose 261 H 215 H 176 H Lactic Acid Calcium AST ALT Alkaline Phosphatase CK-MB (CK-2) CK-MB (CK-2) Rel Index Total Protein Albumin TSH Urine WBC (Auto) Salicylates 01/30/17 01/30/17 01/30/17 05:31 05:31 05:34 WBC 15.2 H RBC 3.09 L Hgb 7.9 L Hct 23.9 L MCV 77 L MCH 26 L RDW 16.9 H Plt Count 569 H Lymph % (Auto) Moody % (Auto) Eos % (Auto) Seg Neutrophils % Seg Neuts % (Manual) Lymphocytes % (Manual) Seg Neutrophils # Seg Neutrophils # Man Lymphocytes # (Manual) APTT POC ABG pH ABG pH POC ABG pCO2 POC ABG pO2 ABG pO2 ABG HCO3 ABG Base Excess ABG Hemoglobin VBG pH Oxyhemoglobin Sodium Potassium Chloride Carbon Dioxide BUN 24 H Creatinine Glucose 235 H POC Glucose 243 H Lactic Acid Calcium AST ALT Alkaline Phosphatase CK-MB (CK-2) CK-MB (CK-2) Rel Index Total Protein Albumin TSH Urine WBC (Auto) Salicylates 01/30/17 01/30/17 01/30/17 11:38 17:58 23:29 WBC RBC Hgb Hct MCV MCH RDW Plt Count Lymph % (Auto) Moody % (Auto) Eos % (Auto) Seg Neutrophils % Seg Neuts % (Manual) Lymphocytes % (Manual) Seg Neutrophils # Seg Neutrophils # Man Lymphocytes # (Manual) APTT POC ABG pH ABG pH POC ABG pCO2 POC ABG pO2 ABG pO2 ABG HCO3 ABG Base Excess ABG Hemoglobin VBG pH Oxyhemoglobin Sodium Potassium Chloride Carbon Dioxide BUN Creatinine Glucose POC Glucose 298 H 208 H 245 H Lactic Acid Calcium AST ALT Alkaline Phosphatase CK-MB (CK-2) CK-MB (CK-2) Rel Index Total Protein Albumin TSH Urine WBC (Auto) Salicylates 01/31/17 01/31/17 01/31/17 04:39 04:39 05:57 WBC 11.4 H RBC 3.22 L Hgb 8.2 L Hct 24.9 L MCV 78 L MCH 25 L RDW 17.2 H Plt Count 576 H Lymph % (Auto) Moody % (Auto) Eos % (Auto) Seg Neutrophils % Seg Neuts % (Manual) Lymphocytes % (Manual) Seg Neutrophils # Seg Neutrophils # Man Lymphocytes # (Manual) APTT POC ABG pH ABG pH POC ABG pCO2 POC ABG pO2 ABG pO2 ABG HCO3 ABG Base Excess ABG Hemoglobin VBG pH Oxyhemoglobin Sodium Potassium Chloride Carbon Dioxide BUN Creatinine 0.7 L Glucose 223 H POC Glucose 264 H Lactic Acid Calcium AST ALT Alkaline Phosphatase CK-MB (CK-2) CK-MB (CK-2) Rel Index Total Protein Albumin TSH Urine WBC (Auto) Salicylates 01/31/17 01/31/17 01/31/17 12:23 17:41 18:55 WBC RBC Hgb Hct MCV MCH RDW Plt Count Lymph % (Auto) Moody % (Auto) Eos % (Auto) Seg Neutrophils % Seg Neuts % (Manual) Lymphocytes % (Manual) Seg Neutrophils # Seg Neutrophils # Man Lymphocytes # (Manual) APTT POC ABG pH ABG pH POC ABG pCO2 32.8 L POC ABG pO2 ABG pO2 ABG HCO3 ABG Base Excess ABG Hemoglobin VBG pH Oxyhemoglobin Sodium Potassium Chloride Carbon Dioxide BUN Creatinine Glucose POC Glucose 252 H 208 H Lactic Acid Calcium AST ALT Alkaline Phosphatase CK-MB (CK-2) CK-MB (CK-2) Rel Index Total Protein Albumin TSH Urine WBC (Auto) Salicylates 01/31/17 02/01/17 02/01/17 22:59 03:38 03:38 WBC RBC 2.81 L Hgb 7.4 L Hct 22.1 L MCV 79 L MCH 27 L RDW 17.0 H Plt Count 540 H Lymph % (Auto) Moody % (Auto) Eos % (Auto) Seg Neutrophils % Seg Neuts % (Manual) Lymphocytes % (Manual) Seg Neutrophils # Seg Neutrophils # Man Lymphocytes # (Manual) APTT POC ABG pH ABG pH POC ABG pCO2 POC ABG pO2 ABG pO2 ABG HCO3 ABG Base Excess ABG Hemoglobin VBG pH Oxyhemoglobin Sodium Potassium Chloride Carbon Dioxide 21 L BUN Creatinine 0.7 L Glucose POC Glucose 40 L Lactic Acid Calcium AST ALT Alkaline Phosphatase CK-MB (CK-2) CK-MB (CK-2) Rel Index Total Protein Albumin TSH Urine WBC (Auto) Salicylates 02/01/17 02/01/17 02/01/17 05:17 12:19 16:44 WBC RBC Hgb Hct MCV MCH RDW Plt Count Lymph % (Auto) Moody % (Auto) Eos % (Auto) Seg Neutrophils % Seg Neuts % (Manual) Lymphocytes % (Manual) Seg Neutrophils # Seg Neutrophils # Man Lymphocytes # (Manual) APTT POC ABG pH ABG pH POC ABG pCO2 POC ABG pO2 ABG pO2 ABG HCO3 ABG Base Excess ABG Hemoglobin VBG pH Oxyhemoglobin Sodium Potassium Chloride Carbon Dioxide BUN Creatinine Glucose POC Glucose 140 H 213 H 172 H Lactic Acid Calcium AST ALT Alkaline Phosphatase CK-MB (CK-2) CK-MB (CK-2) Rel Index Total Protein Albumin TSH Urine WBC (Auto) Salicylates 02/01/17 02/02/17 02/02/17 23:59 05:14 11:24 WBC RBC Hgb Hct MCV MCH RDW Plt Count Lymph % (Auto) Moody % (Auto) Eos % (Auto) Seg Neutrophils % Seg Neuts % (Manual) Lymphocytes % (Manual) Seg Neutrophils # Seg Neutrophils # Man Lymphocytes # (Manual) APTT POC ABG pH ABG pH POC ABG pCO2 POC ABG pO2 ABG pO2 ABG HCO3 ABG Base Excess ABG Hemoglobin VBG pH Oxyhemoglobin Sodium Potassium Chloride Carbon Dioxide BUN Creatinine Glucose POC Glucose 181 H 194 H 209 H Lactic Acid Calcium AST ALT Alkaline Phosphatase CK-MB (CK-2) CK-MB (CK-2) Rel Index Total Protein Albumin TSH Urine WBC (Auto) Salicylates 02/02/17 02/02/17 02/02/17 11:46 11:46 17:47 WBC RBC 2.94 L Hgb 7.5 L Hct 23.0 L MCV 78 L MCH 25 L RDW 16.9 H Plt Count 520 H Lymph % (Auto) Moody % (Auto) Eos % (Auto) Seg Neutrophils % Seg Neuts % (Manual) Lymphocytes % (Manual) Seg Neutrophils # Seg Neutrophils # Man Lymphocytes # (Manual) APTT POC ABG pH ABG pH POC ABG pCO2 POC ABG pO2 ABG pO2 ABG HCO3 ABG Base Excess ABG Hemoglobin VBG pH Oxyhemoglobin Sodium Potassium Chloride Carbon Dioxide BUN Creatinine 0.6 L Glucose 189 H POC Glucose 147 H Lactic Acid Calcium 8.1 L AST ALT Alkaline Phosphatase CK-MB (CK-2) CK-MB (CK-2) Rel Index Total Protein Albumin TSH Urine WBC (Auto) Salicylates 02/02/17 02/03/17 02/03/17 23:32 05:53 11:19 WBC RBC Hgb Hct MCV MCH RDW Plt Count Lymph % (Auto) Moody % (Auto) Eos % (Auto) Seg Neutrophils % Seg Neuts % (Manual) Lymphocytes % (Manual) Seg Neutrophils # Seg Neutrophils # Man Lymphocytes # (Manual) APTT POC ABG pH ABG pH POC ABG pCO2 POC ABG pO2 ABG pO2 ABG HCO3 ABG Base Excess ABG Hemoglobin VBG pH Oxyhemoglobin Sodium Potassium Chloride Carbon Dioxide BUN Creatinine Glucose POC Glucose 176 H 224 H 228 H Lactic Acid Calcium AST ALT Alkaline Phosphatase CK-MB (CK-2) CK-MB (CK-2) Rel Index Total Protein Albumin TSH Urine WBC (Auto) Salicylates 02/03/17 02/03/17 02/04/17 16:59 23:38 05:45 WBC RBC Hgb Hct MCV MCH RDW Plt Count Lymph % (Auto) Moody % (Auto) Eos % (Auto) Seg Neutrophils % Seg Neuts % (Manual) Lymphocytes % (Manual) Seg Neutrophils # Seg Neutrophils # Man Lymphocytes # (Manual) APTT POC ABG pH ABG pH POC ABG pCO2 POC ABG pO2 ABG pO2 ABG HCO3 ABG Base Excess ABG Hemoglobin VBG pH Oxyhemoglobin Sodium Potassium Chloride Carbon Dioxide BUN Creatinine Glucose POC Glucose 189 H 191 H 251 H Lactic Acid Calcium AST ALT Alkaline Phosphatase CK-MB (CK-2) CK-MB (CK-2) Rel Index Total Protein Albumin TSH Urine WBC (Auto) Salicylates 02/04/17 02/04/17 02/05/17 11:20 17:20 00:17 WBC RBC Hgb Hct MCV MCH RDW Plt Count Lymph % (Auto) Moody % (Auto) Eos % (Auto) Seg Neutrophils % Seg Neuts % (Manual) Lymphocytes % (Manual) Seg Neutrophils # Seg Neutrophils # Man Lymphocytes # (Manual) APTT POC ABG pH ABG pH POC ABG pCO2 POC ABG pO2 ABG pO2 ABG HCO3 ABG Base Excess ABG Hemoglobin VBG pH Oxyhemoglobin Sodium Potassium Chloride Carbon Dioxide BUN Creatinine Glucose POC Glucose 243 H 163 H 200 H Lactic Acid Calcium AST ALT Alkaline Phosphatase CK-MB (CK-2) CK-MB (CK-2) Rel Index Total Protein Albumin TSH Urine WBC (Auto) Salicylates 02/05/17 02/05/17 02/05/17 05:38 12:38 16:29 WBC RBC Hgb Hct MCV MCH RDW Plt Count Lymph % (Auto) Moody % (Auto) Eos % (Auto) Seg Neutrophils % Seg Neuts % (Manual) Lymphocytes % (Manual) Seg Neutrophils # Seg Neutrophils # Man Lymphocytes # (Manual) APTT POC ABG pH ABG pH POC ABG pCO2 POC ABG pO2 ABG pO2 ABG HCO3 ABG Base Excess ABG Hemoglobin VBG pH Oxyhemoglobin Sodium Potassium Chloride Carbon Dioxide BUN Creatinine Glucose POC Glucose 248 H 241 H 257 H Lactic Acid Calcium AST ALT Alkaline Phosphatase CK-MB (CK-2) CK-MB (CK-2) Rel Index Total Protein Albumin TSH Urine WBC (Auto) Salicylates 02/05/17 02/06/17 02/06/17 23:56 05:30 11:50 WBC RBC Hgb Hct MCV MCH RDW Plt Count Lymph % (Auto) Moody % (Auto) Eos % (Auto) Seg Neutrophils % Seg Neuts % (Manual) Lymphocytes % (Manual) Seg Neutrophils # Seg Neutrophils # Man Lymphocytes # (Manual) APTT POC ABG pH ABG pH POC ABG pCO2 POC ABG pO2 ABG pO2 ABG HCO3 ABG Base Excess ABG Hemoglobin VBG pH Oxyhemoglobin Sodium Potassium Chloride Carbon Dioxide BUN Creatinine Glucose POC Glucose 258 H 120 H 254 H Lactic Acid Calcium AST ALT Alkaline Phosphatase CK-MB (CK-2) CK-MB (CK-2) Rel Index Total Protein Albumin TSH Urine WBC (Auto) Salicylates 02/06/17 02/06/17 02/07/17 17:11 23:50 05:22 WBC RBC Hgb Hct MCV MCH RDW Plt Count Lymph % (Auto) Moody % (Auto) Eos % (Auto) Seg Neutrophils % Seg Neuts % (Manual) Lymphocytes % (Manual) Seg Neutrophils # Seg Neutrophils # Man Lymphocytes # (Manual) APTT POC ABG pH ABG pH POC ABG pCO2 POC ABG pO2 ABG pO2 ABG HCO3 ABG Base Excess ABG Hemoglobin VBG pH Oxyhemoglobin Sodium Potassium Chloride Carbon Dioxide BUN Creatinine Glucose POC Glucose 149 H 240 H 258 H Lactic Acid Calcium AST ALT Alkaline Phosphatase CK-MB (CK-2) CK-MB (CK-2) Rel Index Total Protein Albumin TSH Urine WBC (Auto) Salicylates 02/07/17 02/07/17 02/07/17 11:15 18:33 23:59 WBC RBC Hgb Hct MCV MCH RDW Plt Count Lymph % (Auto) Moody % (Auto) Eos % (Auto) Seg Neutrophils % Seg Neuts % (Manual) Lymphocytes % (Manual) Seg Neutrophils # Seg Neutrophils # Man Lymphocytes # (Manual) APTT POC ABG pH ABG pH POC ABG pCO2 POC ABG pO2 ABG pO2 ABG HCO3 ABG Base Excess ABG Hemoglobin VBG pH Oxyhemoglobin Sodium Potassium Chloride Carbon Dioxide BUN Creatinine Glucose POC Glucose 239 H 176 H 186 H Lactic Acid Calcium AST ALT Alkaline Phosphatase CK-MB (CK-2) CK-MB (CK-2) Rel Index Total Protein Albumin TSH Urine WBC (Auto) Salicylates 02/08/17 02/08/17 02/08/17 06:15 11:55 16:55 WBC RBC Hgb Hct MCV MCH RDW Plt Count Lymph % (Auto) Moody % (Auto) Eos % (Auto) Seg Neutrophils % Seg Neuts % (Manual) Lymphocytes % (Manual) Seg Neutrophils # Seg Neutrophils # Man Lymphocytes # (Manual) APTT POC ABG pH ABG pH POC ABG pCO2 POC ABG pO2 ABG pO2 ABG HCO3 ABG Base Excess ABG Hemoglobin VBG pH Oxyhemoglobin Sodium Potassium Chloride Carbon Dioxide BUN Creatinine Glucose POC Glucose 195 H 129 H 246 H Lactic Acid Calcium AST ALT Alkaline Phosphatase CK-MB (CK-2) CK-MB (CK-2) Rel Index Total Protein Albumin TSH Urine WBC (Auto) Salicylates 02/08/17 02/09/17 02/09/17 23:51 05:51 07:24 WBC 14.7 H RBC 3.39 L Hgb 8.9 L Hct 26.4 L MCV 78 L MCH 26 L RDW 18.4 H Plt Count 670 H Lymph % (Auto) 11.8 L Moody % (Auto) Eos % (Auto) Seg Neutrophils % 81.2 H Seg Neuts % (Manual) Lymphocytes % (Manual) Seg Neutrophils # 11.9 H Seg Neutrophils # Man Lymphocytes # (Manual) APTT POC ABG pH ABG pH POC ABG pCO2 POC ABG pO2 ABG pO2 ABG HCO3 ABG Base Excess ABG Hemoglobin VBG pH Oxyhemoglobin Sodium Potassium Chloride Carbon Dioxide BUN Creatinine Glucose POC Glucose 262 H 295 H Lactic Acid Calcium AST ALT Alkaline Phosphatase CK-MB (CK-2) CK-MB (CK-2) Rel Index Total Protein Albumin TSH Urine WBC (Auto) Salicylates 02/09/17 02/09/17 02/09/17 07:24 12:08 18:39 WBC RBC Hgb Hct MCV MCH RDW Plt Count Lymph % (Auto) Moody % (Auto) Eos % (Auto) Seg Neutrophils % Seg Neuts % (Manual) Lymphocytes % (Manual) Seg Neutrophils # Seg Neutrophils # Man Lymphocytes # (Manual) APTT POC ABG pH ABG pH POC ABG pCO2 POC ABG pO2 ABG pO2 ABG HCO3 ABG Base Excess ABG Hemoglobin VBG pH Oxyhemoglobin Sodium Potassium Chloride 95.5 L Carbon Dioxide BUN 52 H Creatinine Glucose 277 H POC Glucose 236 H 151 H Lactic Acid Calcium AST ALT Alkaline Phosphatase CK-MB (CK-2) CK-MB (CK-2) Rel Index Total Protein Albumin TSH Urine WBC (Auto) Salicylates 02/10/17 02/10/17 02/10/17 00:01 05:44 11:21 WBC RBC Hgb Hct MCV MCH RDW Plt Count Lymph % (Auto) Moody % (Auto) Eos % (Auto) Seg Neutrophils % Seg Neuts % (Manual) Lymphocytes % (Manual) Seg Neutrophils # Seg Neutrophils # Man Lymphocytes # (Manual) APTT POC ABG pH ABG pH POC ABG pCO2 POC ABG pO2 ABG pO2 ABG HCO3 ABG Base Excess ABG Hemoglobin VBG pH Oxyhemoglobin Sodium Potassium Chloride Carbon Dioxide BUN Creatinine Glucose POC Glucose 210 H 201 H 233 H Lactic Acid Calcium AST ALT Alkaline Phosphatase CK-MB (CK-2) CK-MB (CK-2) Rel Index Total Protein Albumin TSH Urine WBC (Auto) Salicylates 02/10/17 02/10/17 02/11/17 17:29 23:56 05:24 WBC RBC Hgb Hct MCV MCH RDW Plt Count Lymph % (Auto) Moody % (Auto) Eos % (Auto) Seg Neutrophils % Seg Neuts % (Manual) Lymphocytes % (Manual) Seg Neutrophils # Seg Neutrophils # Man Lymphocytes # (Manual) APTT POC ABG pH ABG pH POC ABG pCO2 POC ABG pO2 ABG pO2 ABG HCO3 ABG Base Excess ABG Hemoglobin VBG pH Oxyhemoglobin Sodium Potassium Chloride Carbon Dioxide BUN Creatinine Glucose POC Glucose 167 H 191 H 135 H Lactic Acid Calcium AST ALT Alkaline Phosphatase CK-MB (CK-2) CK-MB (CK-2) Rel Index Total Protein Albumin TSH Urine WBC (Auto) Salicylates 02/11/17 02/11/17 02/11/17 12:25 17:03 23:59 WBC RBC Hgb Hct MCV MCH RDW Plt Count Lymph % (Auto) Moody % (Auto) Eos % (Auto) Seg Neutrophils % Seg Neuts % (Manual) Lymphocytes % (Manual) Seg Neutrophils # Seg Neutrophils # Man Lymphocytes # (Manual) APTT POC ABG pH ABG pH POC ABG pCO2 POC ABG pO2 ABG pO2 ABG HCO3 ABG Base Excess ABG Hemoglobin VBG pH Oxyhemoglobin Sodium Potassium Chloride Carbon Dioxide BUN Creatinine Glucose POC Glucose 275 H 172 H 215 H Lactic Acid Calcium AST ALT Alkaline Phosphatase CK-MB (CK-2) CK-MB (CK-2) Rel Index Total Protein Albumin TSH Urine WBC (Auto) Salicylates 02/12/17 02/12/17 02/12/17 05:39 11:33 17:55 WBC RBC Hgb Hct MCV MCH RDW Plt Count Lymph % (Auto) Moody % (Auto) Eos % (Auto) Seg Neutrophils % Seg Neuts % (Manual) Lymphocytes % (Manual) Seg Neutrophils # Seg Neutrophils # Man Lymphocytes # (Manual) APTT POC ABG pH ABG pH POC ABG pCO2 POC ABG pO2 ABG pO2 ABG HCO3 ABG Base Excess ABG Hemoglobin VBG pH Oxyhemoglobin Sodium Potassium Chloride Carbon Dioxide BUN Creatinine Glucose POC Glucose 261 H 217 H 172 H Lactic Acid Calcium AST ALT Alkaline Phosphatase CK-MB (CK-2) CK-MB (CK-2) Rel Index Total Protein Albumin TSH Urine WBC (Auto) Salicylates 02/13/17 02/13/17 02/13/17 00:25 06:46 11:26 WBC RBC Hgb Hct MCV MCH RDW Plt Count Lymph % (Auto) Moody % (Auto) Eos % (Auto) Seg Neutrophils % Seg Neuts % (Manual) Lymphocytes % (Manual) Seg Neutrophils # Seg Neutrophils # Man Lymphocytes # (Manual) APTT POC ABG pH ABG pH POC ABG pCO2 POC ABG pO2 ABG pO2 ABG HCO3 ABG Base Excess ABG Hemoglobin VBG pH Oxyhemoglobin Sodium Potassium Chloride Carbon Dioxide BUN Creatinine Glucose POC Glucose 207 H 219 H 231 H Lactic Acid Calcium AST ALT Alkaline Phosphatase CK-MB (CK-2) CK-MB (CK-2) Rel Index Total Protein Albumin TSH Urine WBC (Auto) Salicylates 02/13/17 02/13/17 02/14/17 17:12 23:44 05:44 WBC RBC Hgb Hct MCV MCH RDW Plt Count Lymph % (Auto) Moody % (Auto) Eos % (Auto) Seg Neutrophils % Seg Neuts % (Manual) Lymphocytes % (Manual) Seg Neutrophils # Seg Neutrophils # Man Lymphocytes # (Manual) APTT POC ABG pH ABG pH POC ABG pCO2 POC ABG pO2 ABG pO2 ABG HCO3 ABG Base Excess ABG Hemoglobin VBG pH Oxyhemoglobin Sodium Potassium Chloride Carbon Dioxide BUN Creatinine Glucose POC Glucose 190 H 256 H 184 H Lactic Acid Calcium AST ALT Alkaline Phosphatase CK-MB (CK-2) CK-MB (CK-2) Rel Index Total Protein Albumin TSH Urine WBC (Auto) Salicylates 02/14/17 02/14/17 02/14/17 12:21 17:57 23:18 WBC RBC Hgb Hct MCV MCH RDW Plt Count Lymph % (Auto) Moody % (Auto) Eos % (Auto) Seg Neutrophils % Seg Neuts % (Manual) Lymphocytes % (Manual) Seg Neutrophils # Seg Neutrophils # Man Lymphocytes # (Manual) APTT POC ABG pH ABG pH POC ABG pCO2 POC ABG pO2 ABG pO2 ABG HCO3 ABG Base Excess ABG Hemoglobin VBG pH Oxyhemoglobin Sodium Potassium Chloride Carbon Dioxide BUN Creatinine Glucose POC Glucose 233 H 155 H 165 H Lactic Acid Calcium AST ALT Alkaline Phosphatase CK-MB (CK-2) CK-MB (CK-2) Rel Index Total Protein Albumin TSH Urine WBC (Auto) Salicylates 02/15/17 02/15/17 02/15/17 05:33 11:45 17:20 WBC RBC Hgb Hct MCV MCH RDW Plt Count Lymph % (Auto) Moody % (Auto) Eos % (Auto) Seg Neutrophils % Seg Neuts % (Manual) Lymphocytes % (Manual) Seg Neutrophils # Seg Neutrophils # Man Lymphocytes # (Manual) APTT POC ABG pH ABG pH POC ABG pCO2 POC ABG pO2 ABG pO2 ABG HCO3 ABG Base Excess ABG Hemoglobin VBG pH Oxyhemoglobin Sodium Potassium Chloride Carbon Dioxide BUN Creatinine Glucose POC Glucose 239 H 130 H 189 H Lactic Acid Calcium AST ALT Alkaline Phosphatase CK-MB (CK-2) CK-MB (CK-2) Rel Index Total Protein Albumin TSH Urine WBC (Auto) Salicylates 02/16/17 02/16/17 02/16/17 00:14 05:09 12:31 WBC RBC Hgb Hct MCV MCH RDW Plt Count Lymph % (Auto) Moody % (Auto) Eos % (Auto) Seg Neutrophils % Seg Neuts % (Manual) Lymphocytes % (Manual) Seg Neutrophils # Seg Neutrophils # Man Lymphocytes # (Manual) APTT POC ABG pH ABG pH POC ABG pCO2 POC ABG pO2 ABG pO2 ABG HCO3 ABG Base Excess ABG Hemoglobin VBG pH Oxyhemoglobin Sodium Potassium Chloride Carbon Dioxide BUN Creatinine Glucose POC Glucose 197 H 226 H 178 H Lactic Acid Calcium AST ALT Alkaline Phosphatase CK-MB (CK-2) CK-MB (CK-2) Rel Index Total Protein Albumin TSH Urine WBC (Auto) Salicylates 02/16/17 02/16/17 02/17/17 16:35 23:49 05:37 WBC RBC Hgb Hct MCV MCH RDW Plt Count Lymph % (Auto) Moody % (Auto) Eos % (Auto) Seg Neutrophils % Seg Neuts % (Manual) Lymphocytes % (Manual) Seg Neutrophils # Seg Neutrophils # Man Lymphocytes # (Manual) APTT POC ABG pH ABG pH POC ABG pCO2 POC ABG pO2 ABG pO2 ABG HCO3 ABG Base Excess ABG Hemoglobin VBG pH Oxyhemoglobin Sodium Potassium Chloride Carbon Dioxide BUN Creatinine Glucose POC Glucose 174 H 62 L 153 H Lactic Acid Calcium AST ALT Alkaline Phosphatase CK-MB (CK-2) CK-MB (CK-2) Rel Index Total Protein Albumin TSH Urine WBC (Auto) Salicylates 02/17/17 02/17/17 02/17/17 11:39 17:02 22:24 WBC RBC Hgb Hct MCV MCH RDW Plt Count Lymph % (Auto) Moody % (Auto) Eos % (Auto) Seg Neutrophils % Seg Neuts % (Manual) Lymphocytes % (Manual) Seg Neutrophils # Seg Neutrophils # Man Lymphocytes # (Manual) APTT POC ABG pH ABG pH POC ABG pCO2 POC ABG pO2 ABG pO2 ABG HCO3 ABG Base Excess ABG Hemoglobin VBG pH Oxyhemoglobin Sodium Potassium Chloride Carbon Dioxide BUN Creatinine Glucose POC Glucose 231 H 112 H 116 H Lactic Acid Calcium AST ALT Alkaline Phosphatase CK-MB (CK-2) CK-MB (CK-2) Rel Index Total Protein Albumin TSH Urine WBC (Auto) Salicylates 02/18/17 02/19/17 02/19/17 15:34 05:09 07:57 WBC RBC Hgb Hct MCV MCH RDW Plt Count Lymph % (Auto) Moody % (Auto) Eos % (Auto) Seg Neutrophils % Seg Neuts % (Manual) Lymphocytes % (Manual) Seg Neutrophils # Seg Neutrophils # Man Lymphocytes # (Manual) APTT POC ABG pH ABG pH POC ABG pCO2 POC ABG pO2 ABG pO2 ABG HCO3 ABG Base Excess ABG Hemoglobin VBG pH Oxyhemoglobin Sodium Potassium Chloride Carbon Dioxide BUN Creatinine Glucose POC Glucose 215 H 218 H 283 H Lactic Acid Calcium AST ALT Alkaline Phosphatase CK-MB (CK-2) CK-MB (CK-2) Rel Index Total Protein Albumin TSH Urine WBC (Auto) Salicylates 02/19/17 02/19/17 02/20/17 14:49 22:10 05:10 WBC RBC Hgb Hct MCV MCH RDW Plt Count Lymph % (Auto) Moody % (Auto) Eos % (Auto) Seg Neutrophils % Seg Neuts % (Manual) Lymphocytes % (Manual) Seg Neutrophils # Seg Neutrophils # Man Lymphocytes # (Manual) APTT POC ABG pH ABG pH POC ABG pCO2 POC ABG pO2 ABG pO2 ABG HCO3 ABG Base Excess ABG Hemoglobin VBG pH Oxyhemoglobin Sodium Potassium Chloride Carbon Dioxide BUN Creatinine Glucose POC Glucose 290 H 169 H 209 H Lactic Acid Calcium AST ALT Alkaline Phosphatase CK-MB (CK-2) CK-MB (CK-2) Rel Index Total Protein Albumin TSH Urine WBC (Auto) Salicylates 02/20/17 02/20/17 02/21/17 15:05 21:52 02:00 WBC RBC Hgb Hct MCV MCH RDW Plt Count Lymph % (Auto) Moody % (Auto) Eos % (Auto) Seg Neutrophils % Seg Neuts % (Manual) Lymphocytes % (Manual) Seg Neutrophils # Seg Neutrophils # Man Lymphocytes # (Manual) APTT POC ABG pH ABG pH POC ABG pCO2 POC ABG pO2 ABG pO2 ABG HCO3 ABG Base Excess ABG Hemoglobin VBG pH Oxyhemoglobin Sodium Potassium Chloride Carbon Dioxide BUN Creatinine Glucose POC Glucose 172 H 209 H 216 H Lactic Acid Calcium AST ALT Alkaline Phosphatase CK-MB (CK-2) CK-MB (CK-2) Rel Index Total Protein Albumin TSH Urine WBC (Auto) Salicylates 02/21/17 02/21/17 02/21/17 04:54 14:43 17:47 WBC RBC Hgb Hct MCV MCH RDW Plt Count Lymph % (Auto) Moody % (Auto) Eos % (Auto) Seg Neutrophils % Seg Neuts % (Manual) Lymphocytes % (Manual) Seg Neutrophils # Seg Neutrophils # Man Lymphocytes # (Manual) APTT POC ABG pH ABG pH POC ABG pCO2 POC ABG pO2 ABG pO2 ABG HCO3 ABG Base Excess ABG Hemoglobin VBG pH Oxyhemoglobin Sodium Potassium Chloride Carbon Dioxide BUN Creatinine Glucose POC Glucose 227 H 290 H 220 H Lactic Acid Calcium AST ALT Alkaline Phosphatase CK-MB (CK-2) CK-MB (CK-2) Rel Index Total Protein Albumin TSH Urine WBC (Auto) Salicylates 02/21/17 02/22/17 02/22/17 22:02 04:52 15:25 WBC RBC Hgb Hct MCV MCH RDW Plt Count Lymph % (Auto) Moody % (Auto) Eos % (Auto) Seg Neutrophils % Seg Neuts % (Manual) Lymphocytes % (Manual) Seg Neutrophils # Seg Neutrophils # Man Lymphocytes # (Manual) APTT POC ABG pH ABG pH POC ABG pCO2 POC ABG pO2 ABG pO2 ABG HCO3 ABG Base Excess ABG Hemoglobin VBG pH Oxyhemoglobin Sodium Potassium Chloride Carbon Dioxide BUN Creatinine Glucose POC Glucose 246 H 212 H 236 H Lactic Acid Calcium AST ALT Alkaline Phosphatase CK-MB (CK-2) CK-MB (CK-2) Rel Index Total Protein Albumin TSH Urine WBC (Auto) Salicylates 02/22/17 02/23/17 02/23/17 21:33 06:04 10:00 WBC RBC Hgb Hct MCV MCH RDW Plt Count Lymph % (Auto) Moody % (Auto) Eos % (Auto) Seg Neutrophils % Seg Neuts % (Manual) Lymphocytes % (Manual) Seg Neutrophils # Seg Neutrophils # Man Lymphocytes # (Manual) APTT POC ABG pH ABG pH POC ABG pCO2 POC ABG pO2 ABG pO2 ABG HCO3 ABG Base Excess ABG Hemoglobin VBG pH Oxyhemoglobin Sodium Potassium Chloride Carbon Dioxide BUN Creatinine Glucose POC Glucose 255 H 208 H 174 H Lactic Acid Calcium AST ALT Alkaline Phosphatase CK-MB (CK-2) CK-MB (CK-2) Rel Index Total Protein Albumin TSH Urine WBC (Auto) Salicylates 02/23/17 02/23/17 02/23/17 12:52 17:15 21:51 WBC RBC Hgb Hct MCV MCH RDW Plt Count Lymph % (Auto) Moody % (Auto) Eos % (Auto) Seg Neutrophils % Seg Neuts % (Manual) Lymphocytes % (Manual) Seg Neutrophils # Seg Neutrophils # Man Lymphocytes # (Manual) APTT POC ABG pH ABG pH POC ABG pCO2 POC ABG pO2 ABG pO2 ABG HCO3 ABG Base Excess ABG Hemoglobin VBG pH Oxyhemoglobin Sodium Potassium Chloride Carbon Dioxide BUN Creatinine Glucose POC Glucose 203 H 269 H 205 H Lactic Acid Calcium AST ALT Alkaline Phosphatase CK-MB (CK-2) CK-MB (CK-2) Rel Index Total Protein Albumin TSH Urine WBC (Auto) Salicylates 02/24/17 02/24/17 02/24/17 10:23 17:45 21:24 WBC RBC Hgb Hct MCV MCH RDW Plt Count Lymph % (Auto) Moody % (Auto) Eos % (Auto) Seg Neutrophils % Seg Neuts % (Manual) Lymphocytes % (Manual) Seg Neutrophils # Seg Neutrophils # Man Lymphocytes # (Manual) APTT POC ABG pH ABG pH POC ABG pCO2 POC ABG pO2 ABG pO2 ABG HCO3 ABG Base Excess ABG Hemoglobin VBG pH Oxyhemoglobin Sodium Potassium Chloride Carbon Dioxide BUN Creatinine Glucose POC Glucose 280 H 239 H 254 H Lactic Acid Calcium AST ALT Alkaline Phosphatase CK-MB (CK-2) CK-MB (CK-2) Rel Index Total Protein Albumin TSH Urine WBC (Auto) Salicylates 02/25/17 02/25/17 02/25/17 02:12 05:17 14:32 WBC RBC Hgb Hct MCV MCH RDW Plt Count Lymph % (Auto) Moody % (Auto) Eos % (Auto) Seg Neutrophils % Seg Neuts % (Manual) Lymphocytes % (Manual) Seg Neutrophils # Seg Neutrophils # Man Lymphocytes # (Manual) APTT POC ABG pH ABG pH POC ABG pCO2 POC ABG pO2 ABG pO2 ABG HCO3 ABG Base Excess ABG Hemoglobin VBG pH Oxyhemoglobin Sodium Potassium Chloride Carbon Dioxide BUN Creatinine Glucose POC Glucose 296 H 332 H 353 H Lactic Acid Calcium AST ALT Alkaline Phosphatase CK-MB (CK-2) CK-MB (CK-2) Rel Index Total Protein Albumin TSH Urine WBC (Auto) Salicylates 02/25/17 02/26/17 02/26/17 22:14 00:37 05:52 WBC RBC Hgb Hct MCV MCH RDW Plt Count Lymph % (Auto) Moody % (Auto) Eos % (Auto) Seg Neutrophils % Seg Neuts % (Manual) Lymphocytes % (Manual) Seg Neutrophils # Seg Neutrophils # Man Lymphocytes # (Manual) APTT POC ABG pH ABG pH POC ABG pCO2 POC ABG pO2 ABG pO2 ABG HCO3 ABG Base Excess ABG Hemoglobin VBG pH Oxyhemoglobin Sodium Potassium Chloride Carbon Dioxide BUN Creatinine Glucose POC Glucose 201 H 233 H 269 H Lactic Acid Calcium AST ALT Alkaline Phosphatase CK-MB (CK-2) CK-MB (CK-2) Rel Index Total Protein Albumin TSH Urine WBC (Auto) Salicylates 02/26/17 02/26/17 02/26/17 11:48 13:49 21:26 WBC RBC Hgb Hct MCV MCH RDW Plt Count Lymph % (Auto) Moody % (Auto) Eos % (Auto) Seg Neutrophils % Seg Neuts % (Manual) Lymphocytes % (Manual) Seg Neutrophils # Seg Neutrophils # Man Lymphocytes # (Manual) APTT POC ABG pH ABG pH POC ABG pCO2 POC ABG pO2 ABG pO2 ABG HCO3 ABG Base Excess ABG Hemoglobin VBG pH Oxyhemoglobin Sodium Potassium Chloride Carbon Dioxide BUN Creatinine Glucose POC Glucose 333 H 322 H 244 H Lactic Acid Calcium AST ALT Alkaline Phosphatase CK-MB (CK-2) CK-MB (CK-2) Rel Index Total Protein Albumin TSH Urine WBC (Auto) Salicylates 02/27/17 02/27/17 02/27/17 05:27 13:51 21:48 WBC RBC Hgb Hct MCV MCH RDW Plt Count Lymph % (Auto) Moody % (Auto) Eos % (Auto) Seg Neutrophils % Seg Neuts % (Manual) Lymphocytes % (Manual) Seg Neutrophils # Seg Neutrophils # Man Lymphocytes # (Manual) APTT POC ABG pH ABG pH POC ABG pCO2 POC ABG pO2 ABG pO2 ABG HCO3 ABG Base Excess ABG Hemoglobin VBG pH Oxyhemoglobin Sodium Potassium Chloride Carbon Dioxide BUN Creatinine Glucose POC Glucose 217 H 239 H 254 H Lactic Acid Calcium AST ALT Alkaline Phosphatase CK-MB (CK-2) CK-MB (CK-2) Rel Index Total Protein Albumin TSH Urine WBC (Auto) Salicylates 02/28/17 02/28/17 02/28/17 05:38 11:00 19:44 WBC RBC Hgb Hct MCV MCH RDW Plt Count Lymph % (Auto) Moody % (Auto) Eos % (Auto) Seg Neutrophils % Seg Neuts % (Manual) Lymphocytes % (Manual) Seg Neutrophils # Seg Neutrophils # Man Lymphocytes # (Manual) APTT POC ABG pH ABG pH POC ABG pCO2 POC ABG pO2 ABG pO2 ABG HCO3 ABG Base Excess ABG Hemoglobin VBG pH Oxyhemoglobin Sodium Potassium Chloride Carbon Dioxide BUN Creatinine Glucose POC Glucose 325 H 203 H 116 H Lactic Acid Calcium AST ALT Alkaline Phosphatase CK-MB (CK-2) CK-MB (CK-2) Rel Index Total Protein Albumin TSH Urine WBC (Auto) Salicylates 03/01/17 03/01/17 03/01/17 00:08 05:31 12:17 WBC RBC Hgb Hct MCV MCH RDW Plt Count Lymph % (Auto) [place] % (Auto) Eos % (Auto) Seg Neutrophils % Seg Neuts % (Manual) Lymphocytes % (Manual) Seg Neutrophils # Seg Neutrophils # Man Lymphocytes # (Manual) APTT POC ABG pH ABG pH POC ABG pCO2 POC ABG pO2 ABG pO2 ABG HCO3 ABG Base Excess ABG Hemoglobin VBG pH Oxyhemoglobin Sodium Potassium Chloride Carbon Dioxide BUN Creatinine Glucose POC Glucose 202 H 183 H 184 H Lactic Acid Calcium AST ALT Alkaline Phosphatase CK-MB (CK-2) CK-MB (CK-2) Rel Index Total Protein Albumin TSH Urine WBC (Auto) Salicylates 03/02/17 03/02/17 03/02/17 00:12 05:58 18:22 WBC RBC Hgb Hct MCV MCH RDW Plt Count Lymph % (Auto) [place] % (Auto) Eos % (Auto) Seg Neutrophils % Seg Neuts % (Manual) Lymphocytes % (Manual) Seg Neutrophils # Seg Neutrophils # Man Lymphocytes # (Manual) APTT POC ABG pH ABG pH POC ABG pCO2 POC ABG pO2 ABG pO2 ABG HCO3 ABG Base Excess ABG Hemoglobin VBG pH Oxyhemoglobin Sodium Potassium Chloride Carbon Dioxide BUN Creatinine Glucose POC Glucose 117 H 176 H 156 H Lactic Acid Calcium AST ALT Alkaline Phosphatase CK-MB (CK-2) CK-MB (CK-2) Rel Index Total Protein Albumin TSH Urine WBC (Auto) Salicylates 03/02/17 03/03/17 03/03/17 23:51 05:44 11:32 WBC RBC Hgb Hct MCV MCH RDW Plt Count Lymph % (Auto) Moody % (Auto) Eos % (Auto) Seg Neutrophils % Seg Neuts % (Manual) Lymphocytes % (Manual) Seg Neutrophils # Seg Neutrophils # Man Lymphocytes # (Manual) APTT POC ABG pH ABG pH POC ABG pCO2 POC ABG pO2 ABG pO2 ABG HCO3 ABG Base Excess ABG Hemoglobin VBG pH Oxyhemoglobin Sodium Potassium Chloride Carbon Dioxide BUN Creatinine Glucose POC Glucose 211 H 117 H 133 H Lactic Acid Calcium AST ALT Alkaline Phosphatase CK-MB (CK-2) CK-MB (CK-2) Rel Index Total Protein Albumin TSH Urine WBC (Auto) Salicylates 03/03/17 03/03/17 03/04/17 17:43 23:17 05:30 WBC RBC Hgb Hct MCV MCH RDW Plt Count Lymph % (Auto) Moody % (Auto) Eos % (Auto) Seg Neutrophils % Seg Neuts % (Manual) Lymphocytes % (Manual) Seg Neutrophils # Seg Neutrophils # Man Lymphocytes # (Manual) APTT POC ABG pH ABG pH POC ABG pCO2 POC ABG pO2 ABG pO2 ABG HCO3 ABG Base Excess ABG Hemoglobin VBG pH Oxyhemoglobin Sodium Potassium Chloride Carbon Dioxide BUN Creatinine Glucose POC Glucose 206 H 170 H 126 H Lactic Acid Calcium AST ALT Alkaline Phosphatase CK-MB (CK-2) CK-MB (CK-2) Rel Index Total Protein Albumin TSH Urine WBC (Auto) Salicylates 03/04/17 03/04/17 03/05/17 12:17 17:27 05:20 WBC RBC Hgb Hct MCV MCH RDW Plt Count Lymph % (Auto) Moody % (Auto) Eos % (Auto) Seg Neutrophils % Seg Neuts % (Manual) Lymphocytes % (Manual) Seg Neutrophils # Seg Neutrophils # Man Lymphocytes # (Manual) APTT POC ABG pH ABG pH POC ABG pCO2 POC ABG pO2 ABG pO2 ABG HCO3 ABG Base Excess ABG Hemoglobin VBG pH Oxyhemoglobin Sodium Potassium Chloride Carbon Dioxide BUN Creatinine Glucose POC Glucose 135 H 121 H 185 H Lactic Acid Calcium AST ALT Alkaline Phosphatase CK-MB (CK-2) CK-MB (CK-2) Rel Index Total Protein Albumin TSH Urine WBC (Auto) Salicylates 03/05/17 03/06/17 03/06/17 11:50 11:52 17:34 WBC RBC Hgb Hct MCV MCH RDW Plt Count Lymph % (Auto) Moody % (Auto) Eos % (Auto) Seg Neutrophils % Seg Neuts % (Manual) Lymphocytes % (Manual) Seg Neutrophils # Seg Neutrophils # Man Lymphocytes # (Manual) APTT POC ABG pH ABG pH POC ABG pCO2 POC ABG pO2 ABG pO2 ABG HCO3 ABG Base Excess ABG Hemoglobin VBG pH Oxyhemoglobin Sodium Potassium Chloride Carbon Dioxide BUN Creatinine Glucose POC Glucose 116 H 133 H 181 H Lactic Acid Calcium AST ALT Alkaline Phosphatase CK-MB (CK-2) CK-MB (CK-2) Rel Index Total Protein Albumin TSH Urine WBC (Auto) Salicylates 03/07/17 03/07/17 03/07/17 05:21 11:36 17:49 WBC RBC Hgb Hct MCV MCH RDW Plt Count Lymph % (Auto) Moody % (Auto) Eos % (Auto) Seg Neutrophils % Seg Neuts % (Manual) Lymphocytes % (Manual) Seg Neutrophils # Seg Neutrophils # Man Lymphocytes # (Manual) APTT POC ABG pH ABG pH POC ABG pCO2 POC ABG pO2 ABG pO2 ABG HCO3 ABG Base Excess ABG Hemoglobin VBG pH Oxyhemoglobin Sodium Potassium Chloride Carbon Dioxide BUN Creatinine Glucose POC Glucose 159 H 137 H 158 H Lactic Acid Calcium AST ALT Alkaline Phosphatase CK-MB (CK-2) CK-MB (CK-2) Rel Index Total Protein Albumin TSH Urine WBC (Auto) Salicylates 03/08/17 03/08/17 03/08/17 05:51 13:58 23:50 WBC RBC Hgb Hct MCV MCH RDW Plt Count Lymph % (Auto) Moody % (Auto) Eos % (Auto) Seg Neutrophils % Seg Neuts % (Manual) Lymphocytes % (Manual) Seg Neutrophils # Seg Neutrophils # Man Lymphocytes # (Manual) APTT POC ABG pH ABG pH POC ABG pCO2 POC ABG pO2 ABG pO2 ABG HCO3 ABG Base Excess ABG Hemoglobin VBG pH Oxyhemoglobin Sodium Potassium Chloride Carbon Dioxide BUN Creatinine Glucose POC Glucose 122 H 182 H 114 H Lactic Acid Calcium AST ALT Alkaline Phosphatase CK-MB (CK-2) CK-MB (CK-2) Rel Index Total Protein Albumin TSH Urine WBC (Auto) Salicylates 03/09/17 03/09/17 03/09/17 05:21 05:51 05:51 WBC RBC 3.61 L Hgb 9.5 L Hct 28.3 L MCV 79 L MCH 26 L RDW 17.8 H Plt Count Lymph % (Auto) Moody % (Auto) Eos % (Auto) Seg Neutrophils % Seg Neuts % (Manual) Lymphocytes % (Manual) Seg Neutrophils # Seg Neutrophils # Man Lymphocytes # (Manual) APTT POC ABG pH ABG pH POC ABG pCO2 POC ABG pO2 ABG pO2 ABG HCO3 ABG Base Excess ABG Hemoglobin VBG pH Oxyhemoglobin Sodium 134 L Potassium Chloride 95.5 L Carbon Dioxide BUN 33 H Creatinine 0.5 L Glucose 143 H POC Glucose 153 H Lactic Acid Calcium AST ALT Alkaline Phosphatase CK-MB (CK-2) CK-MB (CK-2) Rel Index Total Protein Albumin TSH Urine WBC (Auto) Salicylates 03/09/17 03/09/17 03/09/17 12:10 18:13 21:00 WBC RBC Hgb Hct MCV MCH RDW Plt Count Lymph % (Auto) [place] % (Auto) Eos % (Auto) Seg Neutrophils % Seg Neuts % (Manual) Lymphocytes % (Manual) Seg Neutrophils # Seg Neutrophils # Man Lymphocytes # (Manual) APTT POC ABG pH ABG pH POC ABG pCO2 POC ABG pO2 ABG pO2 ABG HCO3 ABG Base Excess ABG Hemoglobin VBG pH Oxyhemoglobin Sodium Potassium Chloride Carbon Dioxide BUN Creatinine Glucose POC Glucose 203 H 221 H 198 H Lactic Acid Calcium AST ALT Alkaline Phosphatase CK-MB (CK-2) CK-MB (CK-2) Rel Index Total Protein Albumin TSH Urine WBC (Auto) Salicylates 03/09/17 03/10/17 03/10/17 23:58 05:09 05:09 WBC RBC Hgb 10.3 L Hct 30.5 L MCV 78 L MCH 26 L RDW 17.9 H Plt Count Lymph % (Auto) Moody % (Auto) 10.0 H Eos % (Auto) 6.0 H Seg Neutrophils % Seg Neuts % (Manual) Lymphocytes % (Manual) Seg Neutrophils # Seg Neutrophils # Man Lymphocytes # (Manual) APTT POC ABG pH ABG pH POC ABG pCO2 POC ABG pO2 ABG pO2 ABG HCO3 ABG Base Excess ABG Hemoglobin VBG pH Oxyhemoglobin Sodium 132 L Potassium Chloride 92.2 L Carbon Dioxide BUN 33 H Creatinine 0.5 L Glucose 50 L POC Glucose 167 H Lactic Acid Calcium AST ALT Alkaline Phosphatase CK-MB (CK-2) CK-MB (CK-2) Rel Index Total Protein Albumin TSH Urine WBC (Auto) Salicylates 03/10/17 03/10/17 03/10/17 05:33 05:34 11:48 WBC RBC Hgb Hct MCV MCH RDW Plt Count Lymph % (Auto) [place] % (Auto) Eos % (Auto) Seg Neutrophils % Seg Neuts % (Manual) Lymphocytes % (Manual) Seg Neutrophils # Seg Neutrophils # Man Lymphocytes # (Manual) APTT POC ABG pH ABG pH POC ABG pCO2 POC ABG pO2 ABG pO2 ABG HCO3 ABG Base Excess ABG Hemoglobin VBG pH Oxyhemoglobin Sodium Potassium Chloride Carbon Dioxide BUN Creatinine Glucose POC Glucose 52 L 53 L 148 H Lactic Acid Calcium AST ALT Alkaline Phosphatase CK-MB (CK-2) CK-MB (CK-2) Rel Index Total Protein Albumin TSH Urine WBC (Auto) Salicylates 03/10/17 03/10/17 03/11/17 17:53 23:47 05:18 WBC RBC Hgb Hct MCV MCH RDW Plt Count Lymph % (Auto) [place] % (Auto) Eos % (Auto) Seg Neutrophils % Seg Neuts % (Manual) Lymphocytes % (Manual) Seg Neutrophils # Seg Neutrophils # Man Lymphocytes # (Manual) APTT POC ABG pH ABG pH POC ABG pCO2 POC ABG pO2 ABG pO2 ABG HCO3 ABG Base Excess ABG Hemoglobin VBG pH Oxyhemoglobin Sodium Potassium Chloride Carbon Dioxide BUN Creatinine Glucose POC Glucose 189 H 398 H 126 H Lactic Acid Calcium AST ALT Alkaline Phosphatase CK-MB (CK-2) CK-MB (CK-2) Rel Index Total Protein Albumin TSH Urine WBC (Auto) Salicylates 03/11/17 03/11/17 03/11/17 11:53 17:30 23:10 WBC RBC Hgb Hct MCV MCH RDW Plt Count Lymph % (Auto) [place] % (Auto) Eos % (Auto) Seg Neutrophils % Seg Neuts % (Manual) Lymphocytes % (Manual) Seg Neutrophils # Seg Neutrophils # Man Lymphocytes # (Manual) APTT POC ABG pH ABG pH POC ABG pCO2 POC ABG pO2 ABG pO2 ABG HCO3 ABG Base Excess ABG Hemoglobin VBG pH Oxyhemoglobin Sodium Potassium Chloride Carbon Dioxide BUN Creatinine Glucose POC Glucose 198 H 142 H 244 H Lactic Acid Calcium AST ALT Alkaline Phosphatase CK-MB (CK-2) CK-MB (CK-2) Rel Index Total Protein Albumin TSH Urine WBC (Auto) Salicylates 03/12/17 03/12/17 03/12/17 04:36 11:49 17:23 WBC RBC Hgb Hct MCV MCH RDW Plt Count Lymph % (Auto) [place] % (Auto) Eos % (Auto) Seg Neutrophils % Seg Neuts % (Manual) Lymphocytes % (Manual) Seg Neutrophils # Seg Neutrophils # Man Lymphocytes # (Manual) APTT POC ABG pH ABG pH POC ABG pCO2 POC ABG pO2 ABG pO2 ABG HCO3 ABG Base Excess ABG Hemoglobin VBG pH Oxyhemoglobin Sodium Potassium Chloride Carbon Dioxide BUN Creatinine Glucose POC Glucose 205 H 197 H 209 H Lactic Acid Calcium AST ALT Alkaline Phosphatase CK-MB (CK-2) CK-MB (CK-2) Rel Index Total Protein Albumin TSH Urine WBC (Auto) Salicylates 03/12/17 03/13/17 03/13/17 23:51 05:32 11:43 WBC RBC Hgb Hct MCV MCH RDW Plt Count Lymph % (Auto) [place] % (Auto) Eos % (Auto) Seg Neutrophils % Seg Neuts % (Manual) Lymphocytes % (Manual) Seg Neutrophils # Seg Neutrophils # Man Lymphocytes # (Manual) APTT POC ABG pH ABG pH POC ABG pCO2 POC ABG pO2 ABG pO2 ABG HCO3 ABG Base Excess ABG Hemoglobin VBG pH Oxyhemoglobin Sodium Potassium Chloride Carbon Dioxide BUN Creatinine Glucose POC Glucose 210 H 154 H 164 H Lactic Acid Calcium AST ALT Alkaline Phosphatase CK-MB (CK-2) CK-MB (CK-2) Rel Index Total Protein Albumin TSH Urine WBC (Auto) Salicylates 03/13/17 03/13/17 03/14/17 17:11 23:26 05:42 WBC RBC Hgb Hct MCV MCH RDW Plt Count Lymph % (Auto) [place] % (Auto) Eos % (Auto) Seg Neutrophils % Seg Neuts % (Manual) Lymphocytes % (Manual) Seg Neutrophils # Seg Neutrophils # Man Lymphocytes # (Manual) APTT POC ABG pH ABG pH POC ABG pCO2 POC ABG pO2 ABG pO2 ABG HCO3 ABG Base Excess ABG Hemoglobin VBG pH Oxyhemoglobin Sodium Potassium Chloride Carbon Dioxide BUN Creatinine Glucose POC Glucose 195 H 240 H 230 H Lactic Acid Calcium AST ALT Alkaline Phosphatase CK-MB (CK-2) CK-MB (CK-2) Rel Index Total Protein Albumin TSH Urine WBC (Auto) Salicylates 03/14/17 03/14/17 03/14/17 14:04 17:34 23:42 WBC RBC Hgb Hct MCV MCH RDW Plt Count Lymph % (Auto) [place] % (Auto) Eos % (Auto) Seg Neutrophils % Seg Neuts % (Manual) Lymphocytes % (Manual) Seg Neutrophils # Seg Neutrophils # Man Lymphocytes # (Manual) APTT POC ABG pH ABG pH POC ABG pCO2 POC ABG pO2 ABG pO2 ABG HCO3 ABG Base Excess ABG Hemoglobin VBG pH Oxyhemoglobin Sodium Potassium Chloride Carbon Dioxide BUN Creatinine Glucose POC Glucose 227 H 186 H 225 H Lactic Acid Calcium AST ALT Alkaline Phosphatase CK-MB (CK-2) CK-MB (CK-2) Rel Index Total Protein Albumin TSH Urine WBC (Auto) Salicylates 03/15/17 03/15/17 03/15/17 05:21 17:13 21:37 WBC RBC Hgb Hct MCV MCH RDW Plt Count Lymph % (Auto) [place] % (Auto) Eos % (Auto) Seg Neutrophils % Seg Neuts % (Manual) Lymphocytes % (Manual) Seg Neutrophils # Seg Neutrophils # Man Lymphocytes # (Manual) APTT POC ABG pH ABG pH POC ABG pCO2 POC ABG pO2 ABG pO2 ABG HCO3 ABG Base Excess ABG Hemoglobin VBG pH Oxyhemoglobin Sodium Potassium Chloride Carbon Dioxide BUN Creatinine Glucose POC Glucose 244 H 203 H 216 H Lactic Acid Calcium AST ALT Alkaline Phosphatase CK-MB (CK-2) CK-MB (CK-2) Rel Index Total Protein Albumin TSH Urine WBC (Auto) Salicylates 03/16/17 03/16/17 03/16/17 05:52 18:07 21:54 WBC RBC Hgb Hct MCV MCH RDW Plt Count Lymph % (Auto) [place] % (Auto) Eos % (Auto) Seg Neutrophils % Seg Neuts % (Manual) Lymphocytes % (Manual) Seg Neutrophils # Seg Neutrophils # Man Lymphocytes # (Manual) APTT POC ABG pH ABG pH POC ABG pCO2 POC ABG pO2 ABG pO2 ABG HCO3 ABG Base Excess ABG Hemoglobin VBG pH Oxyhemoglobin Sodium Potassium Chloride Carbon Dioxide BUN Creatinine Glucose POC Glucose 248 H 254 H 244 H Lactic Acid Calcium AST ALT Alkaline Phosphatase CK-MB (CK-2) CK-MB (CK-2) Rel Index Total Protein Albumin TSH Urine WBC (Auto) Salicylates 03/17/17 03/17/17 03/17/17 07:07 07:42 07:43 WBC RBC Hgb 9.7 L Hct 29.1 L MCV 78 L MCH 26 L RDW 17.4 H Plt Count Lymph % (Auto) Moody % (Auto) Eos % (Auto) Seg Neutrophils % Seg Neuts % (Manual) Lymphocytes % (Manual) Seg Neutrophils # Seg Neutrophils # Man Lymphocytes # (Manual) APTT POC ABG pH ABG pH POC ABG pCO2 POC ABG pO2 ABG pO2 ABG HCO3 ABG Base Excess ABG Hemoglobin VBG pH Oxyhemoglobin Sodium Potassium Chloride 96.6 L Carbon Dioxide BUN 30 H Creatinine 0.5 L Glucose 251 H POC Glucose 222 H Lactic Acid Calcium AST ALT Alkaline Phosphatase CK-MB (CK-2) CK-MB (CK-2) Rel Index Total Protein Albumin TSH Urine WBC (Auto) Salicylates 03/17/17 03/17/17 03/18/17 14:08 21:20 14:24 WBC RBC Hgb Hct MCV MCH RDW Plt Count Lymph % (Auto) [place] % (Auto) Eos % (Auto) Seg Neutrophils % Seg Neuts % (Manual) Lymphocytes % (Manual) Seg Neutrophils # Seg Neutrophils # Man Lymphocytes # (Manual) APTT POC ABG pH ABG pH POC ABG pCO2 POC ABG pO2 ABG pO2 ABG HCO3 ABG Base Excess ABG Hemoglobin VBG pH Oxyhemoglobin Sodium Potassium Chloride Carbon Dioxide BUN Creatinine Glucose POC Glucose 281 H 239 H 195 H Lactic Acid Calcium AST ALT Alkaline Phosphatase CK-MB (CK-2) CK-MB (CK-2) Rel Index Total Protein Albumin TSH Urine WBC (Auto) Salicylates 03/18/17 03/19/17 03/19/17 21:37 04:57 14:23 WBC RBC Hgb Hct MCV MCH RDW Plt Count Lymph % (Auto) [place] % (Auto) Eos % (Auto) Seg Neutrophils % Seg Neuts % (Manual) Lymphocytes % (Manual) Seg Neutrophils # Seg Neutrophils # Man Lymphocytes # (Manual) APTT POC ABG pH ABG pH POC ABG pCO2 POC ABG pO2 ABG pO2 ABG HCO3 ABG Base Excess ABG Hemoglobin VBG pH Oxyhemoglobin Sodium Potassium Chloride Carbon Dioxide BUN Creatinine Glucose POC Glucose 227 H 205 H 277 H Lactic Acid Calcium AST ALT Alkaline Phosphatase CK-MB (CK-2) CK-MB (CK-2) Rel Index Total Protein Albumin TSH Urine WBC (Auto) Salicylates 03/19/17 03/19/17 03/20/17 20:31 21:47 04:55 WBC RBC Hgb Hct MCV MCH RDW Plt Count Lymph % (Auto) [place] % (Auto) Eos % (Auto) Seg Neutrophils % Seg Neuts % (Manual) Lymphocytes % (Manual) Seg Neutrophils # Seg Neutrophils # Man Lymphocytes # (Manual) APTT POC ABG pH ABG pH POC ABG pCO2 POC ABG pO2 ABG pO2 ABG HCO3 ABG Base Excess ABG Hemoglobin VBG pH Oxyhemoglobin Sodium Potassium Chloride Carbon Dioxide BUN Creatinine Glucose POC Glucose 256 H 270 H 202 H Lactic Acid Calcium AST ALT Alkaline Phosphatase CK-MB (CK-2) CK-MB (CK-2) Rel Index Total Protein Albumin TSH Urine WBC (Auto) Salicylates 03/20/17 03/20/17 03/21/17 14:09 21:40 05:09 WBC RBC Hgb Hct MCV MCH RDW Plt Count Lymph % (Auto) [place] % (Auto) Eos % (Auto) Seg Neutrophils % Seg Neuts % (Manual) Lymphocytes % (Manual) Seg Neutrophils # Seg Neutrophils # Man Lymphocytes # (Manual) APTT POC ABG pH ABG pH POC ABG pCO2 POC ABG pO2 ABG pO2 ABG HCO3 ABG Base Excess ABG Hemoglobin VBG pH Oxyhemoglobin Sodium Potassium Chloride Carbon Dioxide BUN Creatinine Glucose POC Glucose 200 H 214 H 233 H Lactic Acid Calcium AST ALT Alkaline Phosphatase CK-MB (CK-2) CK-MB (CK-2) Rel Index Total Protein Albumin TSH Urine WBC (Auto) Salicylates 03/21/17 03/21/17 03/22/17 14:06 21:26 05:43 WBC RBC Hgb Hct MCV MCH RDW Plt Count Lymph % (Auto) [place] % (Auto) Eos % (Auto) Seg Neutrophils % Seg Neuts % (Manual) Lymphocytes % (Manual) Seg Neutrophils # Seg Neutrophils # Man Lymphocytes # (Manual) APTT POC ABG pH ABG pH POC ABG pCO2 POC ABG pO2 ABG pO2 ABG HCO3 ABG Base Excess ABG Hemoglobin VBG pH Oxyhemoglobin Sodium Potassium Chloride Carbon Dioxide BUN Creatinine Glucose POC Glucose 250 H 155 H 251 H Lactic Acid Calcium AST ALT Alkaline Phosphatase CK-MB (CK-2) CK-MB (CK-2) Rel Index Total Protein Albumin TSH Urine WBC (Auto) Salicylates 03/22/17 03/22/17 03/23/17 13:46 21:16 00:23 WBC RBC Hgb Hct MCV MCH RDW Plt Count Lymph % (Auto) [place] % (Auto) Eos % (Auto) Seg Neutrophils % Seg Neuts % (Manual) Lymphocytes % (Manual) Seg Neutrophils # Seg Neutrophils # Man Lymphocytes # (Manual) APTT POC ABG pH ABG pH POC ABG pCO2 POC ABG pO2 ABG pO2 ABG HCO3 ABG Base Excess ABG Hemoglobin VBG pH Oxyhemoglobin Sodium Potassium Chloride Carbon Dioxide BUN Creatinine Glucose POC Glucose 269 H 197 H 126 H Lactic Acid Calcium AST ALT Alkaline Phosphatase CK-MB (CK-2) CK-MB (CK-2) Rel Index Total Protein Albumin TSH Urine WBC (Auto) Salicylates 03/23/17 03/23/17 03/23/17 05:39 14:06 21:39 WBC RBC Hgb Hct MCV MCH RDW Plt Count Lymph % (Auto) Moody % (Auto) Eos % (Auto) Seg Neutrophils % Seg Neuts % (Manual) Lymphocytes % (Manual) Seg Neutrophils # Seg Neutrophils # Man Lymphocytes # (Manual) APTT POC ABG pH ABG pH POC ABG pCO2 POC ABG pO2 ABG pO2 ABG HCO3 ABG Base Excess ABG Hemoglobin VBG pH Oxyhemoglobin Sodium Potassium Chloride Carbon Dioxide BUN Creatinine Glucose POC Glucose 234 H 241 H 248 H Lactic Acid Calcium AST ALT Alkaline Phosphatase CK-MB (CK-2) CK-MB (CK-2) Rel Index Total Protein Albumin TSH Urine WBC (Auto) Salicylates 03/24/17 03/24/17 03/25/17 05:06 21:46 05:38 WBC RBC Hgb Hct MCV MCH RDW Plt Count Lymph % (Auto) Moody % (Auto) Eos % (Auto) Seg Neutrophils % Seg Neuts % (Manual) Lymphocytes % (Manual) Seg Neutrophils # Seg Neutrophils # Man Lymphocytes # (Manual) APTT POC ABG pH ABG pH POC ABG pCO2 POC ABG pO2 ABG pO2 ABG HCO3 ABG Base Excess ABG Hemoglobin VBG pH Oxyhemoglobin Sodium Potassium Chloride Carbon Dioxide BUN Creatinine Glucose POC Glucose 232 H 276 H 242 H Lactic Acid Calcium AST ALT Alkaline Phosphatase CK-MB (CK-2) CK-MB (CK-2) Rel Index Total Protein Albumin TSH Urine WBC (Auto) Salicylates 03/25/17 03/25/17 03/26/17 14:30 23:14 13:53 WBC RBC Hgb Hct MCV MCH RDW Plt Count Lymph % (Auto) Moody % (Auto) Eos % (Auto) Seg Neutrophils % Seg Neuts % (Manual) Lymphocytes % (Manual) Seg Neutrophils # Seg Neutrophils # Man Lymphocytes # (Manual) APTT POC ABG pH ABG pH POC ABG pCO2 POC ABG pO2 ABG pO2 ABG HCO3 ABG Base Excess ABG Hemoglobin VBG pH Oxyhemoglobin Sodium Potassium Chloride Carbon Dioxide BUN Creatinine Glucose POC Glucose 246 H 208 H 195 H Lactic Acid Calcium AST ALT Alkaline Phosphatase CK-MB (CK-2) CK-MB (CK-2) Rel Index Total Protein Albumin TSH Urine WBC (Auto) Salicylates 03/26/17 03/27/17 03/27/17 21:58 05:18 14:57 WBC RBC Hgb Hct MCV MCH RDW Plt Count Lymph % (Auto) [place] % (Auto) Eos % (Auto) Seg Neutrophils % Seg Neuts % (Manual) Lymphocytes % (Manual) Seg Neutrophils # Seg Neutrophils # Man Lymphocytes # (Manual) APTT POC ABG pH ABG pH POC ABG pCO2 POC ABG pO2 ABG pO2 ABG HCO3 ABG Base Excess ABG Hemoglobin VBG pH Oxyhemoglobin Sodium Potassium Chloride Carbon Dioxide BUN Creatinine Glucose POC Glucose 241 H 199 H 269 H Lactic Acid Calcium AST ALT Alkaline Phosphatase CK-MB (CK-2) CK-MB (CK-2) Rel Index Total Protein Albumin TSH Urine WBC (Auto) Salicylates 03/27/17 03/28/17 03/28/17 21:33 13:52 21:29 WBC RBC Hgb Hct MCV MCH RDW Plt Count Lymph % (Auto) [place] % (Auto) Eos % (Auto) Seg Neutrophils % Seg Neuts % (Manual) Lymphocytes % (Manual) Seg Neutrophils # Seg Neutrophils # Man Lymphocytes # (Manual) APTT POC ABG pH ABG pH POC ABG pCO2 POC ABG pO2 ABG pO2 ABG HCO3 ABG Base Excess ABG Hemoglobin VBG pH Oxyhemoglobin Sodium Potassium Chloride Carbon Dioxide BUN Creatinine Glucose POC Glucose 214 H 243 H 286 H Lactic Acid Calcium AST ALT Alkaline Phosphatase CK-MB (CK-2) CK-MB (CK-2) Rel Index Total Protein Albumin TSH Urine WBC (Auto) Salicylates 03/29/17 03/29/17 03/29/17 04:32 04:32 13:58 WBC RBC Hgb 10.6 L Hct 32.9 L MCV 78 L MCH 25 L RDW 17.6 H Plt Count Lymph % (Auto) 38.0 H [place] % (Auto) 9.7 H Eos % (Auto) Seg Neutrophils % Seg Neuts % (Manual) Lymphocytes % (Manual) Seg Neutrophils # Seg Neutrophils # Man Lymphocytes # (Manual) APTT POC ABG pH ABG pH POC ABG pCO2 POC ABG pO2 ABG pO2 ABG HCO3 ABG Base Excess ABG Hemoglobin VBG pH Oxyhemoglobin Sodium 132 L Potassium Chloride 94.0 L Carbon Dioxide BUN 28 H Creatinine 0.5 L Glucose 236 H POC Glucose 171 H Lactic Acid Calcium AST ALT 71 H Alkaline Phosphatase 391 H CK-MB (CK-2) CK-MB (CK-2) Rel Index Total Protein 8.3 H Albumin 2.9 L TSH Urine WBC (Auto) Salicylates 03/29/17 03/30/17 03/30/17 20:59 06:07 11:52 WBC RBC Hgb Hct MCV MCH RDW Plt Count Lymph % (Auto) [place] % (Auto) Eos % (Auto) Seg Neutrophils % Seg Neuts % (Manual) Lymphocytes % (Manual) Seg Neutrophils # Seg Neutrophils # Man Lymphocytes # (Manual) APTT POC ABG pH ABG pH POC ABG pCO2 POC ABG pO2 ABG pO2 ABG HCO3 ABG Base Excess ABG Hemoglobin VBG pH Oxyhemoglobin Sodium Potassium Chloride Carbon Dioxide BUN Creatinine Glucose POC Glucose 215 H 259 H 197 H Lactic Acid Calcium AST ALT Alkaline Phosphatase CK-MB (CK-2) CK-MB (CK-2) Rel Index Total Protein Albumin TSH Urine WBC (Auto) Salicylates 03/30/17 03/31/17 03/31/17 21:34 05:42 14:34 WBC RBC Hgb Hct MCV MCH RDW Plt Count Lymph % (Auto) [place] % (Auto) Eos % (Auto) Seg Neutrophils % Seg Neuts % (Manual) Lymphocytes % (Manual) Seg Neutrophils # Seg Neutrophils # Man Lymphocytes # (Manual) APTT POC ABG pH ABG pH POC ABG pCO2 POC ABG pO2 ABG pO2 ABG HCO3 ABG Base Excess ABG Hemoglobin VBG pH Oxyhemoglobin Sodium Potassium Chloride Carbon Dioxide BUN Creatinine Glucose POC Glucose 207 H 184 H 213 H Lactic Acid Calcium AST ALT Alkaline Phosphatase CK-MB (CK-2) CK-MB (CK-2) Rel Index Total Protein Albumin TSH Urine WBC (Auto) Salicylates 03/31/17 04/01/17 04/01/17 21:32 05:53 13:48 WBC RBC Hgb Hct MCV MCH RDW Plt Count Lymph % (Auto) [place] % (Auto) Eos % (Auto) Seg Neutrophils % Seg Neuts % (Manual) Lymphocytes % (Manual) Seg Neutrophils # Seg Neutrophils # Man Lymphocytes # (Manual) APTT POC ABG pH ABG pH POC ABG pCO2 POC ABG pO2 ABG pO2 ABG HCO3 ABG Base Excess ABG Hemoglobin VBG pH Oxyhemoglobin Sodium Potassium Chloride Carbon Dioxide BUN Creatinine Glucose POC Glucose 249 H 225 H 256 H Lactic Acid Calcium AST ALT Alkaline Phosphatase CK-MB (CK-2) CK-MB (CK-2) Rel Index Total Protein Albumin TSH Urine WBC (Auto) Salicylates 04/01/17 04/02/17 04/02/17 21:34 05:32 14:05 WBC RBC Hgb Hct MCV MCH RDW Plt Count Lymph % (Auto) [place] % (Auto) Eos % (Auto) Seg Neutrophils % Seg Neuts % (Manual) Lymphocytes % (Manual) Seg Neutrophils # Seg Neutrophils # Man Lymphocytes # (Manual) APTT POC ABG pH ABG pH POC ABG pCO2 POC ABG pO2 ABG pO2 ABG HCO3 ABG Base Excess ABG Hemoglobin VBG pH Oxyhemoglobin Sodium Potassium Chloride Carbon Dioxide BUN Creatinine Glucose POC Glucose 292 H 220 H 187 H Lactic Acid Calcium AST ALT Alkaline Phosphatase CK-MB (CK-2) CK-MB (CK-2) Rel Index Total Protein Albumin TSH Urine WBC (Auto) Salicylates 04/02/17 04/03/17 04/03/17 21:57 04:49 14:12 WBC RBC Hgb Hct MCV MCH RDW Plt Count Lymph % (Auto) [place] % (Auto) Eos % (Auto) Seg Neutrophils % Seg Neuts % (Manual) Lymphocytes % (Manual) Seg Neutrophils # Seg Neutrophils # Man Lymphocytes # (Manual) APTT POC ABG pH ABG pH POC ABG pCO2 POC ABG pO2 ABG pO2 ABG HCO3 ABG Base Excess ABG Hemoglobin VBG pH Oxyhemoglobin Sodium Potassium Chloride Carbon Dioxide BUN Creatinine Glucose POC Glucose 285 H 256 H 197 H Lactic Acid Calcium AST ALT Alkaline Phosphatase CK-MB (CK-2) CK-MB (CK-2) Rel Index Total Protein Albumin TSH Urine WBC (Auto) Salicylates 04/03/17 04/04/17 04/04/17 21:11 05:20 13:18 WBC RBC Hgb Hct MCV MCH RDW Plt Count Lymph % (Auto) [place] % (Auto) Eos % (Auto) Seg Neutrophils % Seg Neuts % (Manual) Lymphocytes % (Manual) Seg Neutrophils # Seg Neutrophils # Man Lymphocytes # (Manual) APTT POC ABG pH ABG pH POC ABG pCO2 POC ABG pO2 ABG pO2 ABG HCO3 ABG Base Excess ABG Hemoglobin VBG pH Oxyhemoglobin Sodium Potassium Chloride Carbon Dioxide BUN Creatinine Glucose POC Glucose 166 H 228 H 252 H Lactic Acid Calcium AST ALT Alkaline Phosphatase CK-MB (CK-2) CK-MB (CK-2) Rel Index Total Protein Albumin TSH Urine WBC (Auto) Salicylates 04/04/17 04/05/17 04/05/17 21:51 06:14 09:54 WBC RBC Hgb Hct MCV MCH RDW Plt Count Lymph % (Auto) [place] % (Auto) Eos % (Auto) Seg Neutrophils % Seg Neuts % (Manual) Lymphocytes % (Manual) Seg Neutrophils # Seg Neutrophils # Man Lymphocytes # (Manual) APTT POC ABG pH ABG pH POC ABG pCO2 POC ABG pO2 ABG pO2 ABG HCO3 ABG Base Excess ABG Hemoglobin VBG pH Oxyhemoglobin Sodium Potassium Chloride Carbon Dioxide BUN Creatinine Glucose POC Glucose 252 H 152 H 181 H Lactic Acid Calcium AST ALT Alkaline Phosphatase CK-MB (CK-2) CK-MB (CK-2) Rel Index Total Protein Albumin TSH Urine WBC (Auto) Salicylates 04/05/17 04/05/17 04/05/17 14:49 17:34 21:38 WBC RBC Hgb Hct MCV MCH RDW Plt Count Lymph % (Auto) [place] % (Auto) Eos % (Auto) Seg Neutrophils % Seg Neuts % (Manual) Lymphocytes % (Manual) Seg Neutrophils # Seg Neutrophils # Man Lymphocytes # (Manual) APTT POC ABG pH ABG pH POC ABG pCO2 POC ABG pO2 ABG pO2 ABG HCO3 ABG Base Excess ABG Hemoglobin VBG pH Oxyhemoglobin Sodium Potassium Chloride Carbon Dioxide BUN Creatinine Glucose POC Glucose 219 H 268 H 278 H Lactic Acid Calcium AST ALT Alkaline Phosphatase CK-MB (CK-2) CK-MB (CK-2) Rel Index Total Protein Albumin TSH Urine WBC (Auto) Salicylates 04/06/17 04/06/17 04/07/17 15:04 22:14 05:09 WBC RBC Hgb Hct MCV MCH RDW Plt Count Lymph % (Auto) [place] % (Auto) Eos % (Auto) Seg Neutrophils % Seg Neuts % (Manual) Lymphocytes % (Manual) Seg Neutrophils # Seg Neutrophils # Man Lymphocytes # (Manual) APTT POC ABG pH ABG pH POC ABG pCO2 POC ABG pO2 ABG pO2 ABG HCO3 ABG Base Excess ABG Hemoglobin VBG pH Oxyhemoglobin Sodium Potassium Chloride Carbon Dioxide BUN Creatinine Glucose POC Glucose 285 H 106 H 334 H Lactic Acid Calcium AST ALT Alkaline Phosphatase CK-MB (CK-2) CK-MB (CK-2) Rel Index Total Protein Albumin TSH Urine WBC (Auto) Salicylates 04/07/17 04/07/17 04/08/17 14:45 21:48 05:28 WBC RBC Hgb Hct MCV MCH RDW Plt Count Lymph % (Auto) [place] % (Auto) Eos % (Auto) Seg Neutrophils % Seg Neuts % (Manual) Lymphocytes % (Manual) Seg Neutrophils # Seg Neutrophils # Man Lymphocytes # (Manual) APTT POC ABG pH ABG pH POC ABG pCO2 POC ABG pO2 ABG pO2 ABG HCO3 ABG Base Excess ABG Hemoglobin VBG pH Oxyhemoglobin Sodium Potassium Chloride Carbon Dioxide BUN Creatinine Glucose POC Glucose 173 H 304 H 314 H Lactic Acid Calcium AST ALT Alkaline Phosphatase CK-MB (CK-2) CK-MB (CK-2) Rel Index Total Protein Albumin TSH Urine WBC (Auto) Salicylates Chest x-ray: report reviewed, image reviewed
[2017-04-09] MEDS: SYNTHROID PO SCH (05:44)
[2017-04-09] MEDS: HumuLIN R SUB-Q SCH ×3 (07:27→21:53)
[2017-04-09] MEDS: TYLENOL FEEDTUBE PRN (11:20)
[2017-04-09] MEDS: HEPARIN SUB-Q SCH ×2 (11:20→21:09)
[2017-04-09] MEDS: PEPCID PO SCH ×2 (11:20→21:09)
--- NOTE | 2017-04-09 11:41 | Progress Note ---
Assessment and Plan Assessment and plan: 51 YO Male with CKD,HTN, DM presents to ED after found down and unresponsive by his neighbor, who subsequently called EMS. Upon arrival, patient found unresponsive on the floor with a serum glucose of 21, patient has a known history of alcohol abuse and delirium tremens. The patient was administered D5 approximate 500 mls during transport without change in mental status/level of consciousness. Pt seen and evaluated in ED was was found to be unable to protect his airway. Pt intubated and placed on vent support. Pt found to have evidence of hypothyroidism. He was started on Synthroid. He has since been in the ICU. developmental services worker try to locate family, even spoke to the family who he lives with. They themselves were unaware of any family members. After ethics committee meeting on the patient. The decision was made to make him DO NOT RESUSCITATE and to transfer him to hospice. Given his very poor prognosis and poor likelihood of recovery. It was decided that was not his best interest to get trach and PEG. Therefore he'll be transferred to the hospice intubated. Now Awaiting on court ordered /state guardianship. Hypoglycemic brain injury Persistent vegetative state Metabolic encephalopathy Hypoglycemia/hypothermia, resolved Acute respiratory failure mechanical ventilator greater than 96 hours UTI with klebsiella, treated ( Cx + on 01/28), then with ESBL likely colonization hyponatremia, Hypothyroidism IDDM Hypertension low grade Fever, resolved - Cont supportive care and current medication. Monitor vitals, repeat cx on - no growth - increased dose of long acting insulin to 15 unit - Patient is DNR- needs guardianship from the state to give consent for further management, as has no family to give consent. 04/08/17: per pulmonology, Dr. Broussard: " Imp: 1. Hypoglycemia/hypothermia -> suspect due to too much insulin 2. Hypothyroidism; doubt myxedema coma with normal free T4 3. Acute respiratory failure, hypoxia 4. UTI/SIRS 5. Metabolic encephalopathy Rec: 1. GI/DVT PPx/TFs 2. Reviewed chart; ethics note 01/18/17 recommended AND and "hospice"; trying to get guardianship to sign necessary orders for this (however, I was told they are not willing to sign for withdrawal of ventilator); further care felt to be futile and would only prolong potential suffering without affecting ultimate outcome 3. Comfort care, no escalation of care; would not check any further labs; would not work him up for infections in setting of fever, only treat w/ Tylenol 4. Poor prognosis Unable to locate family." which I agree with Dr. Ball and poor prognosis 04/09/17: Tylenol given for fevers. History Interval history: Patient was seen and examined. Follow-up on current diagnosis. Imaging, nursing note, chart, labs and old chart reviewed. Patient remains intubated Hospitalist Physical - Physical exam Narrative exam: GEN: Severely Gale contacted BMI 15.4, comatose HEENT: NCAT, NG tube and ET tube in place NECK: supple, no adenopathy, no thyromegaly, no JVD CVS/HEART: RRR, NORMAL S1S2, NO JVD, pulses present bilaterally CHEST/LUNGS: Symmetrical chest expansion, good air entry bilaterally GI/Abdomen: soft, ND, good bowel sounds, no guarding or rebound /Bladder: no suprapubic tenderness, no CVA or paraspinal tenderness EXT/Skin: no obvious rash Neuro: comatose, doesn't follow commands Psych: Unresponsive - Constitutional Vitals: Temp Pulse Resp BP Pulse Ox 102.8 F H 99 H 24 108/72 96 04/09/17 08:00 04/09/17 08:50 04/09/17 08:50 04/09/17 08:50 04/09/17 08:50 General appearance: Present: no acute distress, well-nourished Results - Labs CBC & Chem 7: 03/29/17 04:32 03/29/17 04:32 Labs: Laboratory Last Values WBC 6.3 K/mm3 (4.5-11.0) 03/29/17 04:32 RBC 4.23 M/mm3 (3.65-5.03) 03/29/17 04:32 Hgb 10.6 gm/dl (11.8-15.2) L 03/29/17 04:32 Hct 32.9 % (35.5-45.6) L 03/29/17 04:32 MCV 78 fl (84-94) L 03/29/17 04:32 MCH 25 pg (28-32) L 03/29/17 04:32 MCHC 32 % (32-34) 03/29/17 04:32 RDW 17.6 % (13.2-15.2) H 03/29/17 04:32 Plt Count 355 K/mm3 (140-440) 03/29/17 04:32 Lymph % (Auto) 38.0 % (13.4-35.0) H 03/29/17 04:32 [place] % (Auto) 9.7 % (0.0-7.3) H 03/29/17 04:32 Eos % (Auto) 3.1 % (0.0-4.3) 03/29/17 04:32 Baso % (Auto) 0.7 % (0.0-1.8) 03/29/17 04:32 Lymph # 2.4 K/mm3 (1.2-5.4) 03/29/17 04:32 [place] # 0.6 K/mm3 (0.0-0.8) 03/29/17 04:32 Eos # 0.2 K/mm3 (0.0-0.4) 03/29/17 04:32 Baso # 0.0 K/mm3 (0.0-0.1) 03/29/17 04:32 Add Manual Diff Complete 01/10/17 04:30 Total Counted 100 01/10/17 04:30 Seg Neutrophils % 48.5 % (40.0-70.0) 03/29/17 04:32 Seg Neuts % (Manual) 88.0 % (40.0-70.0) H 01/10/17 04:30 Band Neutrophils % 7.0 % 01/10/17 04:30 Lymphocytes % (Manual) 4.0 % (13.4-35.0) L 01/10/17 04:30 Reactive Lymphs % (Man) 0 % 01/10/17 04:30 Monocytes % (Manual) 1.0 % (0.0-7.3) 01/10/17 04:30 Eosinophils % (Manual) 0 % (0.0-4.3) 01/10/17 04:30 Basophils % (Manual) 0 % (0.0-1.8) 01/10/17 04:30 Metamyelocytes % 0 % 01/10/17 04:30 Myelocytes % 0 % 01/10/17 04:30 Promyelocytes % 0 % 01/10/17 04:30 Blast Cells % 0 % 01/10/17 04:30 Nucleated RBC % Not Reportable 01/10/17 04:30 Seg Neutrophils # 3.0 K/mm3 (1.8-7.7) 03/29/17 04:32 Seg Neutrophils # Man 21.2 K/mm3 (1.8-7.7) H 01/10/17 04:30 Band Neutrophils # 1.7 K/mm3 01/10/17 04:30 Lymphocytes # (Manual) 1.0 K/mm3 (1.2-5.4) L 01/10/17 04:30 Abs React Lymphs (Man) 0.0 K/mm3 01/10/17 04:30 Monocytes # (Manual) 0.2 K/mm3 (0.0-0.8) 01/10/17 04:30 Eosinophils # (Manual) 0.0 K/mm3 (0.0-0.4) 01/10/17 04:30 Basophils # (Manual) 0.0 K/mm3 (0.0-0.1) 01/10/17 04:30 Metamyelocytes # 0.0 K/mm3 01/10/17 04:30 Myelocytes # 0.0 K/mm3 01/10/17 04:30 Promyelocytes # 0.0 K/mm3 01/10/17 04:30 Blast Cells # 0.0 K/mm3 01/10/17 04:30 WBC Morphology Not Reportable 01/10/17 04:30 Hypersegmented Neuts Not Reportable 01/10/17 04:30 Hyposegmented Neuts Not Reportable 01/10/17 04:30 Hypogranular Neuts Not Reportable 01/10/17 04:30 Smudge Cells Not Reportable 01/10/17 04:30 Toxic Granulation Not Reportable 01/10/17 04:30 Toxic Vacuolation Not Reportable 01/10/17 04:30 Dohle Bodies Not Reportable 01/10/17 04:30 Pelger-Huet Anomaly Not Reportable 01/10/17 04:30 [place] Rods Not Reportable 01/10/17 04:30 Platelet Estimate Consistent w auto 01/10/17 04:30 Clumped Platelets Not Reportable 01/10/17 04:30 Plt Clumps, EDTA Not Reportable 01/10/17 04:30 Large Platelets Not Reportable 01/10/17 04:30 Giant Platelets Not Reportable 01/10/17 04:30 Platelet Satelliting Not Reportable 01/10/17 04:30 Plt Morphology Comment Not Reportable 01/10/17 04:30 RBC Morphology Not Reportable 01/10/17 04:30 Dimorphic RBCs Not Reportable 01/10/17 04:30 Polychromasia Not Reportable 01/10/17 04:30 Hypochromasia 1+ 01/10/17 04:30 Poikilocytosis Not Reportable 01/10/17 04:30 Anisocytosis Not Reportable 01/10/17 04:30 Microcytosis Not Reportable 01/10/17 04:30 Macrocytosis Not Reportable 01/10/17 04:30 Spherocytes Not Reportable 01/10/17 04:30 Pappenheimer Bodies Not Reportable 01/10/17 04:30 Sickle Cells Not Reportable 01/10/17 04:30 Target Cells Not Reportable 01/10/17 04:30 Tear Drop Cells Not Reportable 01/10/17 04:30 Ovalocytes Not Reportable 01/10/17 04:30 Helmet Cells Not Reportable 01/10/17 04:30 [place] Bodies Not Reportable 01/10/17 04:30 [place] Rings Not Reportable 01/10/17 04:30 [place] Cells Not Reportable 01/10/17 04:30 Bite Cells Not Reportable 01/10/17 04:30 Crenated Cell Not Reportable 01/10/17 04:30 Elliptocytes Not Reportable 01/10/17 04:30 Acanthocytes (Spur) Not Reportable 01/10/17 04:30 Rouleaux Not Reportable 01/10/17 04:30 Hemoglobin C Crystals Not Reportable 01/10/17 04:30 Schistocytes Not Reportable 01/10/17 04:30 Malaria parasites Not Reportable 01/10/17 04:30 Kyle Bodies Not Reportable 01/10/17 04:30 Hem Pathologist Commnt No 01/10/17 04:30 PT 14.1 Sec. (12.2-14.9) 01/17/17 04:10 INR 1.04 (0.87-1.13) 01/17/17 04:10 APTT 36.6 Sec. (24.2-36.6) 01/17/17 04:10 POC ABG pH 7.442 (7.35-7.45) 01/31/17 18:55 ABG pH 7.420 pH Units (7.350-7.450) 01/17/17 04:35 POC ABG pCO2 32.8 (35-45) L 01/31/17 18:55 ABG pCO2 34.5 mm Hg 01/17/17 04:35 POC ABG pO2 82 (80-105) 01/31/17 18:55 ABG pO2 160.3 mm Hg (80.0-90.0) H 01/17/17 04:35 POC ABG HCO3 22.4 01/31/17 18:55 ABG HCO3 21.9 mmol/L (20.0-26.0) 01/17/17 04:35 POC ABG Total CO2 23 01/31/17 18:55 POC ABG O2 Sat 97 01/31/17 18:55 ABG O2 Saturation 99.0 % (95.0-99.0) 01/17/17 04:35 ABG O2 Content 11.1 (0.0-44) 01/17/17 04:35 POC ABG Base Excess -2 01/31/17 18:55 ABG Base Excess -2.3 mmol/L (-2.0-3.0) L 01/17/17 04:35 ABG Hemoglobin 7.9 gm/dl (14.0-18.0) L 01/17/17 04:35 ABG Carboxyhemoglobin 1.5 % (0.0-5.0) 01/17/17 04:35 ABG Methemoglobin 0.5 % (0.0-1.5) 01/17/17 04:35 VBG pH 7.284 (7.320-7.420) L 01/09/17 10:16 Oxyhemoglobin 97.1 % (95.0-99.0) 01/17/17 04:35 FiO2 25 % 01/31/17 18:55 Sodium 132 mmol/L (137-145) L 03/29/17 04:32 Potassium 4.5 mmol/L (3.6-5.0) 03/29/17 04:32 Chloride 94.0 mmol/L (98-107) L 03/29/17 04:32 Carbon Dioxide 26 mmol/L (22-30) 03/29/17 04:32 Anion Gap 17 mmol/L 03/29/17 04:32 BUN 28 mg/dL (9-20) H 03/29/17 04:32 Creatinine 0.5 mg/dL (0.8-1.5) L 03/29/17 04:32 Estimated GFR > 60 ml/min 03/29/17 04:32 BUN/Creatinine Ratio 56 % 03/29/17 04:32 Glucose 236 mg/dL (75-100) H 03/29/17 04:32 POC Glucose 340 (70-105) H 04/09/17 06:19 Lactic Acid 0.80 mmol/L (0.7-2.0) 01/30/17 11:49 Calcium 9.2 mg/dL (8.4-10.2) 03/29/17 04:32 Phosphorus 3.10 mg/dL (2.5-4.5) 03/29/17 04:32 Magnesium 1.90 mg/dL (1.7-2.3) 03/29/17 04:32 Total Bilirubin 0.30 mg/dL (0.1-1.2) 03/29/17 04:32 AST 40 units/L (5-40) 03/29/17 04:32 ALT 71 units/L (7-56) H 03/29/17 04:32 Alkaline Phosphatase 391 units/L (35-129) H 03/29/17 04:32 Ammonia 35.0 umol/L (25-60) 01/09/17 10:16 Total Creatine Kinase 135 units/L (55-170) 01/09/17 10:16 CK-MB (CK-2) 7.1 ng/mL (0.0-4.0) H 01/09/17 10:16 CK-MB (CK-2) Rel Index 5.2 (0-4) H 01/09/17 10:16 Troponin T < 0.010 ng/mL (0.00-0.029) 01/09/17 10:16 NT-Pro-B Natriuret Pep 602.9 pg/mL (0-900) 01/09/17 10:16 Total Protein 8.3 g/dL (6.3-8.2) H 03/29/17 04:32 Albumin 2.9 g/dL (3.9-5) L 03/29/17 04:32 Albumin/Globulin Ratio 0.5 % 03/29/17 04:32 TSH 52.800 mlU/mL (0.270-4.200) H 01/09/17 10:16 Free T4 0.78 ng/dL (0.76-1.46) 01/09/17 10:16 Total Cortisol 54.8 mcg/dL () 01/09/17 16:19 Urine Color Yellow (Yellow) 01/28/17 17:52 Urine Turbidity Clear (Clear) 01/28/17 17:52 Urine pH 6.0 (5.0-7.0) 01/28/17 17:52 Ur Specific [place] 1.016 (1.003-1.030) 01/28/17 17:52 Urine Protein 100 mg/dl mg/dL (Negative) 01/28/17 17:52 Urine Glucose (UA) >=500 mg/dL (Negative) 01/28/17 17:52 Urine Ketones Neg mg/dL (Negative) 01/28/17 17:52 Urine Blood Sm (Negative) 01/28/17 17:52 Urine Nitrite Neg (Negative) 01/28/17 17:52 Urine Bilirubin Neg (Negative) 01/28/17 17:52 Urine Urobilinogen < 2.0 mg/dL (<2.0) 01/28/17 17:52 Ur Leukocyte Esterase Lg (Negative) 01/28/17 17:52 Urine WBC (Auto) > 182.0 /HPF (0.0-6.0) H 01/28/17 17:52 Urine RBC (Auto) 113.0 /HPF (0.0-6.0) 01/28/17 17:52 Urine Bacteria (Auto) 2+ /HPF (Negative) 01/28/17 17:52 Urine WBC Clumps 3+ /HPF 01/28/17 17:52 Urine Mucus Few /HPF 01/14/17 14:07 Urine Yeast (Budding) 3+ /HPF 01/14/17 14:07 Salicylates < 0.3 mg/dL (2.8-20.0) L 01/09/17 10:16 Urine Opiates Screen Presumptive negative 01/09/17 10:23 Urine Methadone Screen Presumptive negative 01/09/17 10:23 Acetaminophen < 15.0 ug/mL (10.0-30.0) 01/09/17 10:16 Ur Barbiturates Screen Presumptive negative 01/09/17 10:23 Ur Phencyclidine Scrn Presumptive negative 01/09/17 10:23 Ur Amphetamines Screen Presumptive negative 01/09/17 10:23 U Benzodiazepines Scrn Presumptive negative 01/09/17 10:23 Urine Cocaine Screen Presumptive negative 01/09/17 10:23 U Marijuana (THC) Screen Presumptive negative 01/09/17 10:23 Drugs of Abuse Note Disclamer 01/09/17 10:23 Plasma/Serum Alcohol < 0.01 gm% (0-0.07) 01/09/17 10:16
--- NOTE | 2017-04-09 13:46 | Progress Note ---
Assessment and Plan acute respiratory failure secondary to metabilic event, prolonged vent support Hypoglycemia/hypothermia -> suspect due to too much insulin Hypothyroidism; doubt myxedema coma with normal free T4 UTI/SIRS Metabolic encephalopathy. Residual vegetative state Rec: Same vent support Continue minimizing, avoid lab samplying if no change GI/DVT PPx/TFs Per chart/notes; ethics note 01/18/17 recommended AND and "hospice"; trying to get guardianship to sign necessary orders for this (however, I was told they are not willing to sign for withdrawal of ventilator); further care felt to be futile and would only prolong potential suffering without affecting ultimate outcome Comfort care, no escalation of care. Poor prognosis,unchaged Unable to locate family. Subjective Date of service: 04/09/17 Principal diagnosis: Acute respiratory failure,encephalopathy Interval history: No change ,intubated. Objective - Exam Narrative Exam: GEN: Severely Gale contacted BMI 15.4, comatose HEENT: NCAT, NG tube and ET tube in place NECK: supple, no adenopathy, no thyromegaly, no JVD CVS/HEART: RRR, NORMAL S1S2, NO JVD, pulses present bilaterally CHEST/LUNGS: Symmetrical chest expansion, good air entry bilaterally GI/Abdomen: soft, ND, good bowel sounds, no guarding or rebound /Bladder: no suprapubic tenderness, no CVA or paraspinal tenderness EXT/Skin: no obvious rash Neuro: comatose, doesn't follow commands Psych: Unresponsive Vital Signs - 12hr 04/09/17 04/09/17 04/09/17 02:01 04:00 04:01 Temperature 98.3 F Pulse Rate 95 H 94 H Respiratory 15 14 Rate Blood Pressure 108/73 108/73 O2 Sat by Pulse 99 99 Oximetry 04/09/17 04/09/17 04/09/17 04:32 06:01 08:00 Temperature 102.8 F H Pulse Rate 97 H 91 H Respiratory 14 Rate Blood Pressure 108/73 108/73 O2 Sat by Pulse 100 100 Oximetry 04/09/17 04/09/17 04/09/17 08:50 11:58 12:37 Temperature 103.0 F H Pulse Rate 99 H 99 H Respiratory 24 25 H Rate Blood Pressure 108/72 108/72 O2 Sat by Pulse 96 100 Oximetry Constitutional: no acute distress, comatose Eyes: non-icteric ENT: oropharynx moist Neck: supple, no JVD Effort: normal Ascultation: Bilateral: clear, diminished breath sounds Cardiovascular: regular rate and rhythm (no mrg) Gastrointestinal: normoactive bowel sounds, soft, non-tender, non-distended Integumentary: normal Extremities: no cyanosis, no edema, pink and warm Neurologic: pupils equal and round, other (minimal responsive,no posturing, otherwise no changes, not following any commands. ) Psychiatric: other (unable to obtain) CBC and BMP: 03/29/17 04:32 03/29/17 04:32 ABG, PT/INR, D-dimer: ABG POC ABG pH 7.442 (7.35-7.45) 01/31/17 18:55 ABG pH 7.420 pH Units (7.350-7.450) 01/17/17 04:35 POC ABG pCO2 32.8 (35-45) L 01/31/17 18:55 ABG pCO2 34.5 mm Hg 01/17/17 04:35 POC ABG pO2 82 (80-105) 01/31/17 18:55 ABG pO2 160.3 mm Hg (80.0-90.0) H 01/17/17 04:35 POC ABG HCO3 22.4 01/31/17 18:55 POC ABG Total CO2 23 01/31/17 18:55 POC ABG O2 Sat 97 01/31/17 18:55 ABG O2 Saturation 99.0 % (95.0-99.0) 01/17/17 04:35 PT/INR, D-dimer PT 14.1 Sec. (12.2-14.9) 01/17/17 04:10 INR 1.04 (0.87-1.13) 01/17/17 04:10 Abnormal lab findings: Abnormal Labs 01/09/17 01/09/17 01/09/17 10:16 10:16 10:16 WBC RBC Hgb 9.7 L Hct 28.4 L MCV 76 L MCH 26 L RDW 17.2 H Plt Count 448 H Lymph % (Auto) [place] % (Auto) Eos % (Auto) Seg Neutrophils % 79.5 H Seg Neuts % (Manual) Lymphocytes % (Manual) Seg Neutrophils # Seg Neutrophils # Man Lymphocytes # (Manual) APTT 39.6 H POC ABG pH ABG pH POC ABG pCO2 POC ABG pO2 ABG pO2 ABG HCO3 ABG Base Excess ABG Hemoglobin VBG pH Oxyhemoglobin Sodium 132 L Potassium Chloride 96.7 L Carbon Dioxide 21 L BUN 34 H Creatinine Glucose POC Glucose Lactic Acid Calcium 8.3 L AST ALT Alkaline Phosphatase 151 H CK-MB (CK-2) 7.1 H CK-MB (CK-2) Rel Index 5.2 H Total Protein Albumin 3.3 L TSH Urine WBC (Auto) Salicylates 01/09/17 01/09/17 01/09/17 10:16 10:16 10:16 WBC RBC Hgb Hct MCV MCH RDW Plt Count Lymph % (Auto) [place] % (Auto) Eos % (Auto) Seg Neutrophils % Seg Neuts % (Manual) Lymphocytes % (Manual) Seg Neutrophils # Seg Neutrophils # Man Lymphocytes # (Manual) APTT POC ABG pH ABG pH POC ABG pCO2 POC ABG pO2 ABG pO2 ABG HCO3 ABG Base Excess ABG Hemoglobin VBG pH 7.284 L Oxyhemoglobin Sodium Potassium Chloride Carbon Dioxide BUN Creatinine Glucose POC Glucose Lactic Acid Calcium AST ALT Alkaline Phosphatase CK-MB (CK-2) CK-MB (CK-2) Rel Index Total Protein Albumin TSH 52.800 H Urine WBC (Auto) Salicylates < 0.3 L 01/09/17 01/09/17 01/09/17 10:23 11:14 12:49 WBC RBC Hgb Hct MCV MCH RDW Plt Count Lymph % (Auto) [place] % (Auto) Eos % (Auto) Seg Neutrophils % Seg Neuts % (Manual) Lymphocytes % (Manual) Seg Neutrophils # Seg Neutrophils # Man Lymphocytes # (Manual) APTT POC ABG pH ABG pH POC ABG pCO2 POC ABG pO2 643 H ABG pO2 ABG HCO3 ABG Base Excess ABG Hemoglobin VBG pH Oxyhemoglobin Sodium Potassium Chloride Carbon Dioxide BUN Creatinine Glucose POC Glucose < 40 L Lactic Acid Calcium AST ALT Alkaline Phosphatase CK-MB (CK-2) CK-MB (CK-2) Rel Index Total Protein Albumin TSH Urine WBC (Auto) 61.0 H Salicylates 01/09/17 01/09/17 01/09/17 13:13 14:21 15:09 WBC RBC Hgb Hct MCV MCH RDW Plt Count Lymph % (Auto) [place] % (Auto) Eos % (Auto) Seg Neutrophils % Seg Neuts % (Manual) Lymphocytes % (Manual) Seg Neutrophils # Seg Neutrophils # Man Lymphocytes # (Manual) APTT POC ABG pH ABG pH POC ABG pCO2 POC ABG pO2 ABG pO2 ABG HCO3 ABG Base Excess ABG Hemoglobin VBG pH Oxyhemoglobin Sodium Potassium Chloride Carbon Dioxide BUN Creatinine Glucose POC Glucose 128 H 65 L 120 H Lactic Acid Calcium AST ALT Alkaline Phosphatase CK-MB (CK-2) CK-MB (CK-2) Rel Index Total Protein Albumin TSH Urine WBC (Auto) Salicylates 01/09/17 01/09/17 01/10/17 16:28 17:14 04:30 WBC 24.1 H RBC 3.38 L Hgb 8.5 L Hct 26.0 L MCV 77 L MCH 25 L RDW 17.9 H Plt Count 474 H Lymph % (Auto) [place] % (Auto) Eos % (Auto) Seg Neutrophils % Seg Neuts % (Manual) 88.0 H Lymphocytes % (Manual) 4.0 L Seg Neutrophils # Seg Neutrophils # Man 21.2 H Lymphocytes # (Manual) 1.0 L APTT POC ABG pH ABG pH POC ABG pCO2 POC ABG pO2 ABG pO2 ABG HCO3 ABG Base Excess ABG Hemoglobin VBG pH Oxyhemoglobin Sodium Potassium Chloride Carbon Dioxide BUN Creatinine Glucose POC Glucose 44 L 112 H Lactic Acid Calcium AST ALT Alkaline Phosphatase CK-MB (CK-2) CK-MB (CK-2) Rel Index Total Protein Albumin TSH Urine WBC (Auto) Salicylates 01/10/17 01/10/17 01/10/17 04:30 05:41 05:45 WBC RBC Hgb Hct MCV MCH RDW Plt Count Lymph % (Auto) [place] % (Auto) Eos % (Auto) Seg Neutrophils % Seg Neuts % (Manual) Lymphocytes % (Manual) Seg Neutrophils # Seg Neutrophils # Man Lymphocytes # (Manual) APTT POC ABG pH ABG pH POC ABG pCO2 26.6 L POC ABG pO2 207 H ABG pO2 ABG HCO3 ABG Base Excess ABG Hemoglobin VBG pH Oxyhemoglobin Sodium Potassium Chloride Carbon Dioxide 17 L BUN 27 H Creatinine Glucose POC Glucose 68 L Lactic Acid Calcium 7.5 L AST ALT Alkaline Phosphatase CK-MB (CK-2) CK-MB (CK-2) Rel Index Total Protein Albumin TSH Urine WBC (Auto) Salicylates 01/10/17 01/10/17 01/10/17 07:47 10:50 13:41 WBC RBC Hgb Hct MCV MCH RDW Plt Count Lymph % (Auto) [place] % (Auto) Eos % (Auto) Seg Neutrophils % Seg Neuts % (Manual) Lymphocytes % (Manual) Seg Neutrophils # Seg Neutrophils # Man Lymphocytes # (Manual) APTT POC ABG pH ABG pH POC ABG pCO2 POC ABG pO2 ABG pO2 ABG HCO3 ABG Base Excess ABG Hemoglobin VBG pH Oxyhemoglobin Sodium Potassium Chloride Carbon Dioxide BUN Creatinine Glucose POC Glucose 148 H 165 H 114 H Lactic Acid Calcium AST ALT Alkaline Phosphatase CK-MB (CK-2) CK-MB (CK-2) Rel Index Total Protein Albumin TSH Urine WBC (Auto) Salicylates 01/10/17 01/10/17 01/10/17 20:20 21:39 23:24 WBC RBC Hgb Hct MCV MCH RDW Plt Count Lymph % (Auto) [place] % (Auto) Eos % (Auto) Seg Neutrophils % Seg Neuts % (Manual) Lymphocytes % (Manual) Seg Neutrophils # Seg Neutrophils # Man Lymphocytes # (Manual) APTT POC ABG pH ABG pH POC ABG pCO2 POC ABG pO2 ABG pO2 ABG HCO3 ABG Base Excess ABG Hemoglobin VBG pH Oxyhemoglobin Sodium Potassium Chloride Carbon Dioxide BUN Creatinine Glucose POC Glucose 150 H 175 H 155 H Lactic Acid Calcium AST ALT Alkaline Phosphatase CK-MB (CK-2) CK-MB (CK-2) Rel Index Total Protein Albumin TSH Urine WBC (Auto) Salicylates 01/11/17 01/11/17 01/11/17 00:19 04:06 05:20 WBC 15.2 H RBC 3.40 L Hgb 8.9 L Hct 26.3 L MCV 78 L MCH 26 L RDW 18.6 H Plt Count 462 H Lymph % (Auto) 13.2 L [place] % (Auto) Eos % (Auto) Seg Neutrophils % 80.8 H Seg Neuts % (Manual) Lymphocytes % (Manual) Seg Neutrophils # 12.3 H Seg Neutrophils # Man Lymphocytes # (Manual) APTT POC ABG pH 7.463 H ABG pH POC ABG pCO2 26.2 L POC ABG pO2 185 H ABG pO2 ABG HCO3 ABG Base Excess ABG Hemoglobin VBG pH Oxyhemoglobin Sodium Potassium Chloride Carbon Dioxide BUN Creatinine Glucose POC Glucose 163 H Lactic Acid Calcium AST ALT Alkaline Phosphatase CK-MB (CK-2) CK-MB (CK-2) Rel Index Total Protein Albumin TSH Urine WBC (Auto) Salicylates 01/11/17 01/11/17 01/11/17 05:20 06:21 07:57 WBC RBC Hgb Hct MCV MCH RDW Plt Count Lymph % (Auto) [place] % (Auto) Eos % (Auto) Seg Neutrophils % Seg Neuts % (Manual) Lymphocytes % (Manual) Seg Neutrophils # Seg Neutrophils # Man Lymphocytes # (Manual) APTT POC ABG pH ABG pH POC ABG pCO2 POC ABG pO2 ABG pO2 ABG HCO3 ABG Base Excess ABG Hemoglobin VBG pH Oxyhemoglobin Sodium Potassium 3.4 L Chloride 111.5 H Carbon Dioxide 17 L BUN Creatinine Glucose 147 H POC Glucose 139 H 188 H Lactic Acid Calcium 8.0 L AST ALT Alkaline Phosphatase CK-MB (CK-2) CK-MB (CK-2) Rel Index Total Protein Albumin TSH Urine WBC (Auto) Salicylates 01/11/17 01/11/17 01/11/17 11:46 16:50 23:15 WBC RBC Hgb Hct MCV MCH RDW Plt Count Lymph % (Auto) [place] % (Auto) Eos % (Auto) Seg Neutrophils % Seg Neuts % (Manual) Lymphocytes % (Manual) Seg Neutrophils # Seg Neutrophils # Man Lymphocytes # (Manual) APTT POC ABG pH ABG pH POC ABG pCO2 POC ABG pO2 ABG pO2 ABG HCO3 ABG Base Excess ABG Hemoglobin VBG pH Oxyhemoglobin Sodium Potassium Chloride Carbon Dioxide BUN Creatinine Glucose POC Glucose 199 H 235 H 155 H Lactic Acid Calcium AST ALT Alkaline Phosphatase CK-MB (CK-2) CK-MB (CK-2) Rel Index Total Protein Albumin TSH Urine WBC (Auto) Salicylates 01/12/17 01/12/17 01/12/17 05:02 06:56 14:50 WBC RBC Hgb Hct MCV MCH RDW Plt Count Lymph % (Auto) [place] % (Auto) Eos % (Auto) Seg Neutrophils % Seg Neuts % (Manual) Lymphocytes % (Manual) Seg Neutrophils # Seg Neutrophils # Man Lymphocytes # (Manual) APTT POC ABG pH ABG pH POC ABG pCO2 28.0 L POC ABG pO2 178 H ABG pO2 ABG HCO3 ABG Base Excess ABG Hemoglobin VBG pH Oxyhemoglobin Sodium Potassium Chloride Carbon Dioxide BUN Creatinine Glucose POC Glucose 119 H 164 H Lactic Acid Calcium AST ALT Alkaline Phosphatase CK-MB (CK-2) CK-MB (CK-2) Rel Index Total Protein Albumin TSH Urine WBC (Auto) Salicylates 01/13/17 01/13/17 01/13/17 03:37 03:37 04:26 WBC RBC 3.61 L Hgb 9.3 L Hct 28.0 L MCV 78 L MCH 26 L RDW 18.2 H Plt Count Lymph % (Auto) [place] % (Auto) Eos % (Auto) Seg Neutrophils % Seg Neuts % (Manual) Lymphocytes % (Manual) Seg Neutrophils # Seg Neutrophils # Man Lymphocytes # (Manual) APTT POC ABG pH 7.485 H ABG pH POC ABG pCO2 25.4 L POC ABG pO2 73 L ABG pO2 ABG HCO3 ABG Base Excess ABG Hemoglobin VBG pH Oxyhemoglobin Sodium Potassium Chloride 112.4 H Carbon Dioxide 19 L BUN Creatinine Glucose 118 H POC Glucose Lactic Acid Calcium 8.0 L AST ALT Alkaline Phosphatase CK-MB (CK-2) CK-MB (CK-2) Rel Index Total Protein Albumin TSH Urine WBC (Auto) Salicylates 01/13/17 01/13/17 01/13/17 06:15 11:50 17:31 WBC RBC Hgb Hct MCV MCH RDW Plt Count Lymph % (Auto) [place] % (Auto) Eos % (Auto) Seg Neutrophils % Seg Neuts % (Manual) Lymphocytes % (Manual) Seg Neutrophils # Seg Neutrophils # Man Lymphocytes # (Manual) APTT POC ABG pH ABG pH POC ABG pCO2 POC ABG pO2 ABG pO2 ABG HCO3 ABG Base Excess ABG Hemoglobin VBG pH Oxyhemoglobin Sodium Potassium Chloride Carbon Dioxide BUN Creatinine Glucose POC Glucose 116 H 171 H 203 H Lactic Acid Calcium AST ALT Alkaline Phosphatase CK-MB (CK-2) CK-MB (CK-2) Rel Index Total Protein Albumin TSH Urine WBC (Auto) Salicylates 01/14/17 01/14/17 01/14/17 00:02 04:50 04:50 WBC RBC 3.32 L Hgb 8.5 L Hct 26.1 L MCV 79 L MCH 26 L RDW 18.2 H Plt Count Lymph % (Auto) [place] % (Auto) 9.0 H Eos % (Auto) Seg Neutrophils % Seg Neuts % (Manual) Lymphocytes % (Manual) Seg Neutrophils # Seg Neutrophils # Man Lymphocytes # (Manual) APTT POC ABG pH ABG pH POC ABG pCO2 POC ABG pO2 ABG pO2 ABG HCO3 ABG Base Excess ABG Hemoglobin VBG pH Oxyhemoglobin Sodium Potassium Chloride 112.5 H Carbon Dioxide BUN Creatinine Glucose 149 H POC Glucose 157 H Lactic Acid Calcium 8.1 L AST ALT Alkaline Phosphatase CK-MB (CK-2) CK-MB (CK-2) Rel Index Total Protein Albumin TSH Urine WBC (Auto) Salicylates 01/14/17 01/14/17 01/14/17 05:10 11:27 14:07 WBC RBC Hgb Hct MCV MCH RDW Plt Count Lymph % (Auto) [place] % (Auto) Eos % (Auto) Seg Neutrophils % Seg Neuts % (Manual) Lymphocytes % (Manual) Seg Neutrophils # Seg Neutrophils # Man Lymphocytes # (Manual) APTT POC ABG pH ABG pH POC ABG pCO2 POC ABG pO2 ABG pO2 ABG HCO3 ABG Base Excess ABG Hemoglobin VBG pH Oxyhemoglobin Sodium Potassium Chloride Carbon Dioxide BUN Creatinine Glucose POC Glucose 176 H 147 H Lactic Acid Calcium AST ALT Alkaline Phosphatase CK-MB (CK-2) CK-MB (CK-2) Rel Index Total Protein Albumin TSH Urine WBC (Auto) 53.0 H Salicylates 01/14/17 01/15/17 01/15/17 16:52 00:04 05:26 WBC RBC Hgb Hct MCV MCH RDW Plt Count Lymph % (Auto) [place] % (Auto) Eos % (Auto) Seg Neutrophils % Seg Neuts % (Manual) Lymphocytes % (Manual) Seg Neutrophils # Seg Neutrophils # Man Lymphocytes # (Manual) APTT POC ABG pH ABG pH POC ABG pCO2 POC ABG pO2 ABG pO2 ABG HCO3 ABG Base Excess ABG Hemoglobin VBG pH Oxyhemoglobin Sodium Potassium Chloride Carbon Dioxide BUN Creatinine Glucose POC Glucose 131 H 193 H 215 H Lactic Acid Calcium AST ALT Alkaline Phosphatase CK-MB (CK-2) CK-MB (CK-2) Rel Index Total Protein Albumin TSH Urine WBC (Auto) Salicylates 01/15/17 01/15/17 01/15/17 11:49 17:47 21:33 WBC RBC Hgb Hct MCV MCH RDW Plt Count Lymph % (Auto) [place] % (Auto) Eos % (Auto) Seg Neutrophils % Seg Neuts % (Manual) Lymphocytes % (Manual) Seg Neutrophils # Seg Neutrophils # Man Lymphocytes # (Manual) APTT POC ABG pH ABG pH POC ABG pCO2 POC ABG pO2 ABG pO2 ABG HCO3 ABG Base Excess ABG Hemoglobin VBG pH Oxyhemoglobin Sodium Potassium Chloride Carbon Dioxide BUN Creatinine Glucose POC Glucose 121 H 211 H 275 H Lactic Acid Calcium AST ALT Alkaline Phosphatase CK-MB (CK-2) CK-MB (CK-2) Rel Index Total Protein Albumin TSH Urine WBC (Auto) Salicylates 01/16/17 01/16/17 01/16/17 04:30 05:28 13:45 WBC RBC Hgb Hct MCV MCH RDW Plt Count Lymph % (Auto) [place] % (Auto) Eos % (Auto) Seg Neutrophils % Seg Neuts % (Manual) Lymphocytes % (Manual) Seg Neutrophils # Seg Neutrophils # Man Lymphocytes # (Manual) APTT POC ABG pH ABG pH 7.457 H POC ABG pCO2 POC ABG pO2 ABG pO2 55.1 L ABG HCO3 19.4 L ABG Base Excess -4.0 L ABG Hemoglobin 6.8 L VBG pH Oxyhemoglobin 94.9 L Sodium Potassium Chloride Carbon Dioxide BUN Creatinine Glucose POC Glucose 271 H 236 H Lactic Acid Calcium AST ALT Alkaline Phosphatase CK-MB (CK-2) CK-MB (CK-2) Rel Index Total Protein Albumin TSH Urine WBC (Auto) Salicylates 01/16/17 01/17/17 01/17/17 21:39 04:10 04:10 WBC 4.4 L RBC 2.98 L Hgb 7.7 L Hct 23.3 L MCV 78 L MCH 26 L RDW 18.1 H Plt Count Lymph % (Auto) [place] % (Auto) Eos % (Auto) Seg Neutrophils % Seg Neuts % (Manual) Lymphocytes % (Manual) Seg Neutrophils # Seg Neutrophils # Man Lymphocytes # (Manual) APTT POC ABG pH ABG pH POC ABG pCO2 POC ABG pO2 ABG pO2 ABG HCO3 ABG Base Excess ABG Hemoglobin VBG pH Oxyhemoglobin Sodium Potassium 3.3 L Chloride 108.7 H Carbon Dioxide 20 L BUN 8 L Creatinine Glucose 202 H POC Glucose 258 H Lactic Acid Calcium 7.6 L AST ALT Alkaline Phosphatase CK-MB (CK-2) CK-MB (CK-2) Rel Index Total Protein Albumin TSH Urine WBC (Auto) Salicylates 01/17/17 01/17/17 01/17/17 04:35 12:23 16:01 WBC RBC Hgb Hct MCV MCH RDW Plt Count Lymph % (Auto) [place] % (Auto) Eos % (Auto) Seg Neutrophils % Seg Neuts % (Manual) Lymphocytes % (Manual) Seg Neutrophils # Seg Neutrophils # Man Lymphocytes # (Manual) APTT POC ABG pH ABG pH POC ABG pCO2 POC ABG pO2 ABG pO2 160.3 H ABG HCO3 ABG Base Excess -2.3 L ABG Hemoglobin 7.9 L VBG pH Oxyhemoglobin Sodium Potassium Chloride Carbon Dioxide BUN Creatinine Glucose POC Glucose 321 H 239 H Lactic Acid Calcium AST ALT Alkaline Phosphatase CK-MB (CK-2) CK-MB (CK-2) Rel Index Total Protein Albumin TSH Urine WBC (Auto) Salicylates 01/18/17 01/18/17 01/18/17 05:07 12:09 17:54 WBC RBC Hgb Hct MCV MCH RDW Plt Count Lymph % (Auto) [place] % (Auto) Eos % (Auto) Seg Neutrophils % Seg Neuts % (Manual) Lymphocytes % (Manual) Seg Neutrophils # Seg Neutrophils # Man Lymphocytes # (Manual) APTT POC ABG pH ABG pH POC ABG pCO2 POC ABG pO2 ABG pO2 ABG HCO3 ABG Base Excess ABG Hemoglobin VBG pH Oxyhemoglobin Sodium Potassium Chloride Carbon Dioxide BUN Creatinine Glucose POC Glucose 155 H 203 H 132 H Lactic Acid Calcium AST ALT Alkaline Phosphatase CK-MB (CK-2) CK-MB (CK-2) Rel Index Total Protein Albumin TSH Urine WBC (Auto) Salicylates 01/18/17 01/19/17 01/19/17 23:43 04:28 12:11 WBC RBC Hgb Hct MCV MCH RDW Plt Count Lymph % (Auto) [place] % (Auto) Eos % (Auto) Seg Neutrophils % Seg Neuts % (Manual) Lymphocytes % (Manual) Seg Neutrophils # Seg Neutrophils # Man Lymphocytes # (Manual) APTT POC ABG pH ABG pH POC ABG pCO2 POC ABG pO2 ABG pO2 ABG HCO3 ABG Base Excess ABG Hemoglobin VBG pH Oxyhemoglobin Sodium Potassium Chloride Carbon Dioxide BUN Creatinine Glucose POC Glucose 125 H 182 H 153 H Lactic Acid Calcium AST ALT Alkaline Phosphatase CK-MB (CK-2) CK-MB (CK-2) Rel Index Total Protein Albumin TSH Urine WBC (Auto) Salicylates 01/19/17 01/20/17 01/20/17 17:23 00:12 05:44 WBC RBC Hgb Hct MCV MCH RDW Plt Count Lymph % (Auto) [place] % (Auto) Eos % (Auto) Seg Neutrophils % Seg Neuts % (Manual) Lymphocytes % (Manual) Seg Neutrophils # Seg Neutrophils # Man Lymphocytes # (Manual) APTT POC ABG pH ABG pH POC ABG pCO2 POC ABG pO2 ABG pO2 ABG HCO3 ABG Base Excess ABG Hemoglobin VBG pH Oxyhemoglobin Sodium Potassium Chloride Carbon Dioxide BUN Creatinine Glucose POC Glucose 66 L 139 H 176 H Lactic Acid Calcium AST ALT Alkaline Phosphatase CK-MB (CK-2) CK-MB (CK-2) Rel Index Total Protein Albumin TSH Urine WBC (Auto) Salicylates 01/20/17 01/20/17 01/20/17 11:48 17:42 23:43 WBC RBC Hgb Hct MCV MCH RDW Plt Count Lymph % (Auto) [place] % (Auto) Eos % (Auto) Seg Neutrophils % Seg Neuts % (Manual) Lymphocytes % (Manual) Seg Neutrophils # Seg Neutrophils # Man Lymphocytes # (Manual) APTT POC ABG pH ABG pH POC ABG pCO2 POC ABG pO2 ABG pO2 ABG HCO3 ABG Base Excess ABG Hemoglobin VBG pH Oxyhemoglobin Sodium Potassium Chloride Carbon Dioxide BUN Creatinine Glucose POC Glucose 218 H 132 H 178 H Lactic Acid Calcium AST ALT Alkaline Phosphatase CK-MB (CK-2) CK-MB (CK-2) Rel Index Total Protein Albumin TSH Urine WBC (Auto) Salicylates 01/21/17 01/21/17 01/21/17 05:34 11:17 23:37 WBC RBC Hgb Hct MCV MCH RDW Plt Count Lymph % (Auto) [place] % (Auto) Eos % (Auto) Seg Neutrophils % Seg Neuts % (Manual) Lymphocytes % (Manual) Seg Neutrophils # Seg Neutrophils # Man Lymphocytes # (Manual) APTT POC ABG pH ABG pH POC ABG pCO2 POC ABG pO2 ABG pO2 ABG HCO3 ABG Base Excess ABG Hemoglobin VBG pH Oxyhemoglobin Sodium Potassium Chloride Carbon Dioxide BUN Creatinine Glucose POC Glucose 106 H 213 H 140 H Lactic Acid Calcium AST ALT Alkaline Phosphatase CK-MB (CK-2) CK-MB (CK-2) Rel Index Total Protein Albumin TSH Urine WBC (Auto) Salicylates 01/22/17 01/22/17 01/22/17 04:00 04:00 04:58 WBC RBC 3.26 L Hgb 8.3 L Hct 25.5 L MCV 78 L MCH 25 L RDW 17.9 H Plt Count Lymph % (Auto) [place] % (Auto) 7.9 H Eos % (Auto) 6.2 H Seg Neutrophils % Seg Neuts % (Manual) Lymphocytes % (Manual) Seg Neutrophils # Seg Neutrophils # Man Lymphocytes # (Manual) APTT POC ABG pH ABG pH POC ABG pCO2 POC ABG pO2 ABG pO2 ABG HCO3 ABG Base Excess ABG Hemoglobin VBG pH Oxyhemoglobin Sodium Potassium Chloride 95.5 L Carbon Dioxide 31 H D BUN Creatinine Glucose 134 H POC Glucose 146 H Lactic Acid Calcium AST 44 H ALT Alkaline Phosphatase 379 H CK-MB (CK-2) CK-MB (CK-2) Rel Index Total Protein Albumin 2.7 L TSH Urine WBC (Auto) Salicylates 01/22/17 01/22/17 01/22/17 12:12 18:12 23:39 WBC RBC Hgb Hct MCV MCH RDW Plt Count Lymph % (Auto) [place] % (Auto) Eos % (Auto) Seg Neutrophils % Seg Neuts % (Manual) Lymphocytes % (Manual) Seg Neutrophils # Seg Neutrophils # Man Lymphocytes # (Manual) APTT POC ABG pH ABG pH POC ABG pCO2 POC ABG pO2 ABG pO2 ABG HCO3 ABG Base Excess ABG Hemoglobin VBG pH Oxyhemoglobin Sodium Potassium Chloride Carbon Dioxide BUN Creatinine Glucose POC Glucose 255 H 182 H 134 H Lactic Acid Calcium AST ALT Alkaline Phosphatase CK-MB (CK-2) CK-MB (CK-2) Rel Index Total Protein Albumin TSH Urine WBC (Auto) Salicylates 01/23/17 01/23/17 01/23/17 04:43 12:12 17:36 WBC RBC Hgb Hct MCV MCH RDW Plt Count Lymph % (Auto) [place] % (Auto) Eos % (Auto) Seg Neutrophils % Seg Neuts % (Manual) Lymphocytes % (Manual) Seg Neutrophils # Seg Neutrophils # Man Lymphocytes # (Manual) APTT POC ABG pH ABG pH POC ABG pCO2 POC ABG pO2 ABG pO2 ABG HCO3 ABG Base Excess ABG Hemoglobin VBG pH Oxyhemoglobin Sodium Potassium Chloride Carbon Dioxide BUN Creatinine Glucose POC Glucose 218 H 128 H 156 H Lactic Acid Calcium AST ALT Alkaline Phosphatase CK-MB (CK-2) CK-MB (CK-2) Rel Index Total Protein Albumin TSH Urine WBC (Auto) Salicylates 01/24/17 01/24/17 01/24/17 00:08 05:16 11:40 WBC RBC Hgb Hct MCV MCH RDW Plt Count Lymph % (Auto) [place] % (Auto) Eos % (Auto) Seg Neutrophils % Seg Neuts % (Manual) Lymphocytes % (Manual) Seg Neutrophils # Seg Neutrophils # Man Lymphocytes # (Manual) APTT POC ABG pH ABG pH POC ABG pCO2 POC ABG pO2 ABG pO2 ABG HCO3 ABG Base Excess ABG Hemoglobin VBG pH Oxyhemoglobin Sodium Potassium Chloride Carbon Dioxide BUN Creatinine Glucose POC Glucose 129 H 169 H 187 H Lactic Acid Calcium AST ALT Alkaline Phosphatase CK-MB (CK-2) CK-MB (CK-2) Rel Index Total Protein Albumin TSH Urine WBC (Auto) Salicylates 01/24/17 01/24/17 01/25/17 17:43 23:23 04:56 WBC RBC Hgb Hct MCV MCH RDW Plt Count Lymph % (Auto) [place] % (Auto) Eos % (Auto) Seg Neutrophils % Seg Neuts % (Manual) Lymphocytes % (Manual) Seg Neutrophils # Seg Neutrophils # Man Lymphocytes # (Manual) APTT POC ABG pH ABG pH POC ABG pCO2 POC ABG pO2 ABG pO2 ABG HCO3 ABG Base Excess ABG Hemoglobin VBG pH Oxyhemoglobin Sodium Potassium Chloride Carbon Dioxide BUN Creatinine Glucose POC Glucose 215 H 222 H 210 H Lactic Acid Calcium AST ALT Alkaline Phosphatase CK-MB (CK-2) CK-MB (CK-2) Rel Index Total Protein Albumin TSH Urine WBC (Auto) Salicylates 01/25/17 01/25/17 01/26/17 11:52 17:37 00:02 WBC RBC Hgb Hct MCV MCH RDW Plt Count Lymph % (Auto) [place] % (Auto) Eos % (Auto) Seg Neutrophils % Seg Neuts % (Manual) Lymphocytes % (Manual) Seg Neutrophils # Seg Neutrophils # Man Lymphocytes # (Manual) APTT POC ABG pH ABG pH POC ABG pCO2 POC ABG pO2 ABG pO2 ABG HCO3 ABG Base Excess ABG Hemoglobin VBG pH Oxyhemoglobin Sodium Potassium Chloride Carbon Dioxide BUN Creatinine Glucose POC Glucose 284 H 218 H 192 H Lactic Acid Calcium AST ALT Alkaline Phosphatase CK-MB (CK-2) CK-MB (CK-2) Rel Index Total Protein Albumin TSH Urine WBC (Auto) Salicylates 01/26/17 01/26/17 01/26/17 05:33 12:17 17:50 WBC RBC Hgb Hct MCV MCH RDW Plt Count Lymph % (Auto) [place] % (Auto) Eos % (Auto) Seg Neutrophils % Seg Neuts % (Manual) Lymphocytes % (Manual) Seg Neutrophils # Seg Neutrophils # Man Lymphocytes # (Manual) APTT POC ABG pH ABG pH POC ABG pCO2 POC ABG pO2 ABG pO2 ABG HCO3 ABG Base Excess ABG Hemoglobin VBG pH Oxyhemoglobin Sodium Potassium Chloride Carbon Dioxide BUN Creatinine Glucose POC Glucose 199 H 227 H 229 H Lactic Acid Calcium AST ALT Alkaline Phosphatase CK-MB (CK-2) CK-MB (CK-2) Rel Index Total Protein Albumin TSH Urine WBC (Auto) Salicylates 01/26/17 01/27/17 01/27/17 23:57 05:31 11:42 WBC RBC Hgb Hct MCV MCH RDW Plt Count Lymph % (Auto) [place] % (Auto) Eos % (Auto) Seg Neutrophils % Seg Neuts % (Manual) Lymphocytes % (Manual) Seg Neutrophils # Seg Neutrophils # Man Lymphocytes # (Manual) APTT POC ABG pH ABG pH POC ABG pCO2 POC ABG pO2 ABG pO2 ABG HCO3 ABG Base Excess ABG Hemoglobin VBG pH Oxyhemoglobin Sodium Potassium Chloride Carbon Dioxide BUN Creatinine Glucose POC Glucose 186 H 285 H 260 H Lactic Acid Calcium AST ALT Alkaline Phosphatase CK-MB (CK-2) CK-MB (CK-2) Rel Index Total Protein Albumin TSH Urine WBC (Auto) Salicylates 01/27/17 01/27/17 01/27/17 17:47 23:58 Unknown WBC 12.1 H RBC 3.28 L Hgb 8.5 L Hct 25.5 L MCV 78 L MCH 26 L RDW 16.8 H Plt Count 601 H Lymph % (Auto) [place] % (Auto) Eos % (Auto) Seg Neutrophils % Seg Neuts % (Manual) Lymphocytes % (Manual) Seg Neutrophils # Seg Neutrophils # Man Lymphocytes # (Manual) APTT POC ABG pH ABG pH POC ABG pCO2 POC ABG pO2 ABG pO2 ABG HCO3 ABG Base Excess ABG Hemoglobin VBG pH Oxyhemoglobin Sodium Potassium Chloride Carbon Dioxide BUN Creatinine Glucose POC Glucose 329 H 225 H Lactic Acid Calcium AST ALT Alkaline Phosphatase CK-MB (CK-2) CK-MB (CK-2) Rel Index Total Protein Albumin TSH Urine WBC (Auto) Salicylates 01/27/17 01/28/17 01/28/17 Unknown 03:44 03:44 WBC RBC 3.14 L Hgb 8.2 L Hct 24.1 L MCV 77 L MCH 26 L RDW 16.9 H Plt Count 567 H Lymph % (Auto) [place] % (Auto) Eos % (Auto) Seg Neutrophils % Seg Neuts % (Manual) Lymphocytes % (Manual) Seg Neutrophils # Seg Neutrophils # Man Lymphocytes # (Manual) APTT POC ABG pH ABG pH POC ABG pCO2 POC ABG pO2 ABG pO2 ABG HCO3 ABG Base Excess ABG Hemoglobin VBG pH Oxyhemoglobin Sodium 128 L Potassium 5.4 H Chloride 87.5 L Carbon Dioxide BUN 44 H 42 H Creatinine Glucose 250 H 128 H POC Glucose Lactic Acid Calcium AST ALT Alkaline Phosphatase CK-MB (CK-2) CK-MB (CK-2) Rel Index Total Protein Albumin TSH Urine WBC (Auto) Salicylates 01/28/17 01/28/17 01/28/17 11:43 16:47 17:52 WBC RBC Hgb Hct MCV MCH RDW Plt Count Lymph % (Auto) [place] % (Auto) Eos % (Auto) Seg Neutrophils % Seg Neuts % (Manual) Lymphocytes % (Manual) Seg Neutrophils # Seg Neutrophils # Man Lymphocytes # (Manual) APTT POC ABG pH ABG pH POC ABG pCO2 POC ABG pO2 ABG pO2 ABG HCO3 ABG Base Excess ABG Hemoglobin VBG pH Oxyhemoglobin Sodium Potassium Chloride Carbon Dioxide BUN Creatinine Glucose POC Glucose 351 H 249 H Lactic Acid Calcium AST ALT Alkaline Phosphatase CK-MB (CK-2) CK-MB (CK-2) Rel Index Total Protein Albumin TSH Urine WBC (Auto) > 182.0 H Salicylates 01/29/17 01/29/17 01/29/17 05:25 05:25 09:32 WBC 13.6 H RBC 3.25 L Hgb 8.3 L Hct 25.1 L MCV 77 L MCH 26 L RDW 16.8 H Plt Count 514 H Lymph % (Auto) [place] % (Auto) Eos % (Auto) Seg Neutrophils % Seg Neuts % (Manual) Lymphocytes % (Manual) Seg Neutrophils # Seg Neutrophils # Man Lymphocytes # (Manual) APTT POC ABG pH ABG pH POC ABG pCO2 POC ABG pO2 ABG pO2 ABG HCO3 ABG Base Excess ABG Hemoglobin VBG pH Oxyhemoglobin Sodium Potassium Chloride 97.8 L Carbon Dioxide BUN 34 H Creatinine Glucose 222 H POC Glucose Lactic Acid 2.50 H* Calcium AST ALT Alkaline Phosphatase CK-MB (CK-2) CK-MB (CK-2) Rel Index Total Protein Albumin TSH Urine WBC (Auto) Salicylates 01/29/17 01/29/17 01/29/17 11:56 18:11 23:55 WBC RBC Hgb Hct MCV MCH RDW Plt Count Lymph % (Auto) [place] % (Auto) Eos % (Auto) Seg Neutrophils % Seg Neuts % (Manual) Lymphocytes % (Manual) Seg Neutrophils # Seg Neutrophils # Man Lymphocytes # (Manual) APTT POC ABG pH ABG pH POC ABG pCO2 POC ABG pO2 ABG pO2 ABG HCO3 ABG Base Excess ABG Hemoglobin VBG pH Oxyhemoglobin Sodium Potassium Chloride Carbon Dioxide BUN Creatinine Glucose POC Glucose 261 H 215 H 176 H Lactic Acid Calcium AST ALT Alkaline Phosphatase CK-MB (CK-2) CK-MB (CK-2) Rel Index Total Protein Albumin TSH Urine WBC (Auto) Salicylates 01/30/17 01/30/17 01/30/17 05:31 05:31 05:34 WBC 15.2 H RBC 3.09 L Hgb 7.9 L Hct 23.9 L MCV 77 L MCH 26 L RDW 16.9 H Plt Count 569 H Lymph % (Auto) [place] % (Auto) Eos % (Auto) Seg Neutrophils % Seg Neuts % (Manual) Lymphocytes % (Manual) Seg Neutrophils # Seg Neutrophils # Man Lymphocytes # (Manual) APTT POC ABG pH ABG pH POC ABG pCO2 POC ABG pO2 ABG pO2 ABG HCO3 ABG Base Excess ABG Hemoglobin VBG pH Oxyhemoglobin Sodium Potassium Chloride Carbon Dioxide BUN 24 H Creatinine Glucose 235 H POC Glucose 243 H Lactic Acid Calcium AST ALT Alkaline Phosphatase CK-MB (CK-2) CK-MB (CK-2) Rel Index Total Protein Albumin TSH Urine WBC (Auto) Salicylates 01/30/17 01/30/17 01/30/17 11:38 17:58 23:29 WBC RBC Hgb Hct MCV MCH RDW Plt Count Lymph % (Auto) [place] % (Auto) Eos % (Auto) Seg Neutrophils % Seg Neuts % (Manual) Lymphocytes % (Manual) Seg Neutrophils # Seg Neutrophils # Man Lymphocytes # (Manual) APTT POC ABG pH ABG pH POC ABG pCO2 POC ABG pO2 ABG pO2 ABG HCO3 ABG Base Excess ABG Hemoglobin VBG pH Oxyhemoglobin Sodium Potassium Chloride Carbon Dioxide BUN Creatinine Glucose POC Glucose 298 H 208 H 245 H Lactic Acid Calcium AST ALT Alkaline Phosphatase CK-MB (CK-2) CK-MB (CK-2) Rel Index Total Protein Albumin TSH Urine WBC (Auto) Salicylates 01/31/17 01/31/17 01/31/17 04:39 04:39 05:57 WBC 11.4 H RBC 3.22 L Hgb 8.2 L Hct 24.9 L MCV 78 L MCH 25 L RDW 17.2 H Plt Count 576 H Lymph % (Auto) [place] % (Auto) Eos % (Auto) Seg Neutrophils % Seg Neuts % (Manual) Lymphocytes % (Manual) Seg Neutrophils # Seg Neutrophils # Man Lymphocytes # (Manual) APTT POC ABG pH ABG pH POC ABG pCO2 POC ABG pO2 ABG pO2 ABG HCO3 ABG Base Excess ABG Hemoglobin VBG pH Oxyhemoglobin Sodium Potassium Chloride Carbon Dioxide BUN Creatinine 0.7 L Glucose 223 H POC Glucose 264 H Lactic Acid Calcium AST ALT Alkaline Phosphatase CK-MB (CK-2) CK-MB (CK-2) Rel Index Total Protein Albumin TSH Urine WBC (Auto) Salicylates 01/31/17 01/31/17 01/31/17 12:23 17:41 18:55 WBC RBC Hgb Hct MCV MCH RDW Plt Count Lymph % (Auto) [place] % (Auto) Eos % (Auto) Seg Neutrophils % Seg Neuts % (Manual) Lymphocytes % (Manual) Seg Neutrophils # Seg Neutrophils # Man Lymphocytes # (Manual) APTT POC ABG pH ABG pH POC ABG pCO2 32.8 L POC ABG pO2 ABG pO2 ABG HCO3 ABG Base Excess ABG Hemoglobin VBG pH Oxyhemoglobin Sodium Potassium Chloride Carbon Dioxide BUN Creatinine Glucose POC Glucose 252 H 208 H Lactic Acid Calcium AST ALT Alkaline Phosphatase CK-MB (CK-2) CK-MB (CK-2) Rel Index Total Protein Albumin TSH Urine WBC (Auto) Salicylates 01/31/17 02/01/17 02/01/17 22:59 03:38 03:38 WBC RBC 2.81 L Hgb 7.4 L Hct 22.1 L MCV 79 L MCH 27 L RDW 17.0 H Plt Count 540 H Lymph % (Auto) [place] % (Auto) Eos % (Auto) Seg Neutrophils % Seg Neuts % (Manual) Lymphocytes % (Manual) Seg Neutrophils # Seg Neutrophils # Man Lymphocytes # (Manual) APTT POC ABG pH ABG pH POC ABG pCO2 POC ABG pO2 ABG pO2 ABG HCO3 ABG Base Excess ABG Hemoglobin VBG pH Oxyhemoglobin Sodium Potassium Chloride Carbon Dioxide 21 L BUN Creatinine 0.7 L Glucose POC Glucose 40 L Lactic Acid Calcium AST ALT Alkaline Phosphatase CK-MB (CK-2) CK-MB (CK-2) Rel Index Total Protein Albumin TSH Urine WBC (Auto) Salicylates 02/01/17 02/01/17 02/01/17 05:17 12:19 16:44 WBC RBC Hgb Hct MCV MCH RDW Plt Count Lymph % (Auto) [place] % (Auto) Eos % (Auto) Seg Neutrophils % Seg Neuts % (Manual) Lymphocytes % (Manual) Seg Neutrophils # Seg Neutrophils # Man Lymphocytes # (Manual) APTT POC ABG pH ABG pH POC ABG pCO2 POC ABG pO2 ABG pO2 ABG HCO3 ABG Base Excess ABG Hemoglobin VBG pH Oxyhemoglobin Sodium Potassium Chloride Carbon Dioxide BUN Creatinine Glucose POC Glucose 140 H 213 H 172 H Lactic Acid Calcium AST ALT Alkaline Phosphatase CK-MB (CK-2) CK-MB (CK-2) Rel Index Total Protein Albumin TSH Urine WBC (Auto) Salicylates 02/01/17 02/02/17 02/02/17 23:59 05:14 11:24 WBC RBC Hgb Hct MCV MCH RDW Plt Count Lymph % (Auto) [place] % (Auto) Eos % (Auto) Seg Neutrophils % Seg Neuts % (Manual) Lymphocytes % (Manual) Seg Neutrophils # Seg Neutrophils # Man Lymphocytes # (Manual) APTT POC ABG pH ABG pH POC ABG pCO2 POC ABG pO2 ABG pO2 ABG HCO3 ABG Base Excess ABG Hemoglobin VBG pH Oxyhemoglobin Sodium Potassium Chloride Carbon Dioxide BUN Creatinine Glucose POC Glucose 181 H 194 H 209 H Lactic Acid Calcium AST ALT Alkaline Phosphatase CK-MB (CK-2) CK-MB (CK-2) Rel Index Total Protein Albumin TSH Urine WBC (Auto) Salicylates 02/02/17 02/02/17 02/02/17 11:46 11:46 17:47 WBC RBC 2.94 L Hgb 7.5 L Hct 23.0 L MCV 78 L MCH 25 L RDW 16.9 H Plt Count 520 H Lymph % (Auto) [place] % (Auto) Eos % (Auto) Seg Neutrophils % Seg Neuts % (Manual) Lymphocytes % (Manual) Seg Neutrophils # Seg Neutrophils # Man Lymphocytes # (Manual) APTT POC ABG pH ABG pH POC ABG pCO2 POC ABG pO2 ABG pO2 ABG HCO3 ABG Base Excess ABG Hemoglobin VBG pH Oxyhemoglobin Sodium Potassium Chloride Carbon Dioxide BUN Creatinine 0.6 L Glucose 189 H POC Glucose 147 H Lactic Acid Calcium 8.1 L AST ALT Alkaline Phosphatase CK-MB (CK-2) CK-MB (CK-2) Rel Index Total Protein Albumin TSH Urine WBC (Auto) Salicylates 02/02/17 02/03/17 02/03/17 23:32 05:53 11:19 WBC RBC Hgb Hct MCV MCH RDW Plt Count Lymph % (Auto) [place] % (Auto) Eos % (Auto) Seg Neutrophils % Seg Neuts % (Manual) Lymphocytes % (Manual) Seg Neutrophils # Seg Neutrophils # Man Lymphocytes # (Manual) APTT POC ABG pH ABG pH POC ABG pCO2 POC ABG pO2 ABG pO2 ABG HCO3 ABG Base Excess ABG Hemoglobin VBG pH Oxyhemoglobin Sodium Potassium Chloride Carbon Dioxide BUN Creatinine Glucose POC Glucose 176 H 224 H 228 H Lactic Acid Calcium AST ALT Alkaline Phosphatase CK-MB (CK-2) CK-MB (CK-2) Rel Index Total Protein Albumin TSH Urine WBC (Auto) Salicylates 02/03/17 02/03/17 02/04/17 16:59 23:38 05:45 WBC RBC Hgb Hct MCV MCH RDW Plt Count Lymph % (Auto) [place] % (Auto) Eos % (Auto) Seg Neutrophils % Seg Neuts % (Manual) Lymphocytes % (Manual) Seg Neutrophils # Seg Neutrophils # Man Lymphocytes # (Manual) APTT POC ABG pH ABG pH POC ABG pCO2 POC ABG pO2 ABG pO2 ABG HCO3 ABG Base Excess ABG Hemoglobin VBG pH Oxyhemoglobin Sodium Potassium Chloride Carbon Dioxide BUN Creatinine Glucose POC Glucose 189 H 191 H 251 H Lactic Acid Calcium AST ALT Alkaline Phosphatase CK-MB (CK-2) CK-MB (CK-2) Rel Index Total Protein Albumin TSH Urine WBC (Auto) Salicylates 02/04/17 02/04/17 02/05/17 11:20 17:20 00:17 WBC RBC Hgb Hct MCV MCH RDW Plt Count Lymph % (Auto) [place] % (Auto) Eos % (Auto) Seg Neutrophils % Seg Neuts % (Manual) Lymphocytes % (Manual) Seg Neutrophils # Seg Neutrophils # Man Lymphocytes # (Manual) APTT POC ABG pH ABG pH POC ABG pCO2 POC ABG pO2 ABG pO2 ABG HCO3 ABG Base Excess ABG Hemoglobin VBG pH Oxyhemoglobin Sodium Potassium Chloride Carbon Dioxide BUN Creatinine Glucose POC Glucose 243 H 163 H 200 H Lactic Acid Calcium AST ALT Alkaline Phosphatase CK-MB (CK-2) CK-MB (CK-2) Rel Index Total Protein Albumin TSH Urine WBC (Auto) Salicylates 02/05/17 02/05/17 02/05/17 05:38 12:38 16:29 WBC RBC Hgb Hct MCV MCH RDW Plt Count Lymph % (Auto) [place] % (Auto) Eos % (Auto) Seg Neutrophils % Seg Neuts % (Manual) Lymphocytes % (Manual) Seg Neutrophils # Seg Neutrophils # Man Lymphocytes # (Manual) APTT POC ABG pH ABG pH POC ABG pCO2 POC ABG pO2 ABG pO2 ABG HCO3 ABG Base Excess ABG Hemoglobin VBG pH Oxyhemoglobin Sodium Potassium Chloride Carbon Dioxide BUN Creatinine Glucose POC Glucose 248 H 241 H 257 H Lactic Acid Calcium AST ALT Alkaline Phosphatase CK-MB (CK-2) CK-MB (CK-2) Rel Index Total Protein Albumin TSH Urine WBC (Auto) Salicylates 02/05/17 02/06/17 02/06/17 23:56 05:30 11:50 WBC RBC Hgb Hct MCV MCH RDW Plt Count Lymph % (Auto) [place] % (Auto) Eos % (Auto) Seg Neutrophils % Seg Neuts % (Manual) Lymphocytes % (Manual) Seg Neutrophils # Seg Neutrophils # Man Lymphocytes # (Manual) APTT POC ABG pH ABG pH POC ABG pCO2 POC ABG pO2 ABG pO2 ABG HCO3 ABG Base Excess ABG Hemoglobin VBG pH Oxyhemoglobin Sodium Potassium Chloride Carbon Dioxide BUN Creatinine Glucose POC Glucose 258 H 120 H 254 H Lactic Acid Calcium AST ALT Alkaline Phosphatase CK-MB (CK-2) CK-MB (CK-2) Rel Index Total Protein Albumin TSH Urine WBC (Auto) Salicylates 02/06/17 02/06/17 02/07/17 17:11 23:50 05:22 WBC RBC Hgb Hct MCV MCH RDW Plt Count Lymph % (Auto) [place] % (Auto) Eos % (Auto) Seg Neutrophils % Seg Neuts % (Manual) Lymphocytes % (Manual) Seg Neutrophils # Seg Neutrophils # Man Lymphocytes # (Manual) APTT POC ABG pH ABG pH POC ABG pCO2 POC ABG pO2 ABG pO2 ABG HCO3 ABG Base Excess ABG Hemoglobin VBG pH Oxyhemoglobin Sodium Potassium Chloride Carbon Dioxide BUN Creatinine Glucose POC Glucose 149 H 240 H 258 H Lactic Acid Calcium AST ALT Alkaline Phosphatase CK-MB (CK-2) CK-MB (CK-2) Rel Index Total Protein Albumin TSH Urine WBC (Auto) Salicylates 02/07/17 02/07/17 02/07/17 11:15 18:33 23:59 WBC RBC Hgb Hct MCV MCH RDW Plt Count Lymph % (Auto) [place] % (Auto) Eos % (Auto) Seg Neutrophils % Seg Neuts % (Manual) Lymphocytes % (Manual) Seg Neutrophils # Seg Neutrophils # Man Lymphocytes # (Manual) APTT POC ABG pH ABG pH POC ABG pCO2 POC ABG pO2 ABG pO2 ABG HCO3 ABG Base Excess ABG Hemoglobin VBG pH Oxyhemoglobin Sodium Potassium Chloride Carbon Dioxide BUN Creatinine Glucose POC Glucose 239 H 176 H 186 H Lactic Acid Calcium AST ALT Alkaline Phosphatase CK-MB (CK-2) CK-MB (CK-2) Rel Index Total Protein Albumin TSH Urine WBC (Auto) Salicylates 02/08/17 02/08/17 02/08/17 06:15 11:55 16:55 WBC RBC Hgb Hct MCV MCH RDW Plt Count Lymph % (Auto) [place] % (Auto) Eos % (Auto) Seg Neutrophils % Seg Neuts % (Manual) Lymphocytes % (Manual) Seg Neutrophils # Seg Neutrophils # Man Lymphocytes # (Manual) APTT POC ABG pH ABG pH POC ABG pCO2 POC ABG pO2 ABG pO2 ABG HCO3 ABG Base Excess ABG Hemoglobin VBG pH Oxyhemoglobin Sodium Potassium Chloride Carbon Dioxide BUN Creatinine Glucose POC Glucose 195 H 129 H 246 H Lactic Acid Calcium AST ALT Alkaline Phosphatase CK-MB (CK-2) CK-MB (CK-2) Rel Index Total Protein Albumin TSH Urine WBC (Auto) Salicylates 02/08/17 02/09/17 02/09/17 23:51 05:51 07:24 WBC 14.7 H RBC 3.39 L Hgb 8.9 L Hct 26.4 L MCV 78 L MCH 26 L RDW 18.4 H Plt Count 670 H Lymph % (Auto) 11.8 L [place] % (Auto) Eos % (Auto) Seg Neutrophils % 81.2 H Seg Neuts % (Manual) Lymphocytes % (Manual) Seg Neutrophils # 11.9 H Seg Neutrophils # Man Lymphocytes # (Manual) APTT POC ABG pH ABG pH POC ABG pCO2 POC ABG pO2 ABG pO2 ABG HCO3 ABG Base Excess ABG Hemoglobin VBG pH Oxyhemoglobin Sodium Potassium Chloride Carbon Dioxide BUN Creatinine Glucose POC Glucose 262 H 295 H Lactic Acid Calcium AST ALT Alkaline Phosphatase CK-MB (CK-2) CK-MB (CK-2) Rel Index Total Protein Albumin TSH Urine WBC (Auto) Salicylates 02/09/17 02/09/17 02/09/17 07:24 12:08 18:39 WBC RBC Hgb Hct MCV MCH RDW Plt Count Lymph % (Auto) [place] % (Auto) Eos % (Auto) Seg Neutrophils % Seg Neuts % (Manual) Lymphocytes % (Manual) Seg Neutrophils # Seg Neutrophils # Man Lymphocytes # (Manual) APTT POC ABG pH ABG pH POC ABG pCO2 POC ABG pO2 ABG pO2 ABG HCO3 ABG Base Excess ABG Hemoglobin VBG pH Oxyhemoglobin Sodium Potassium Chloride 95.5 L Carbon Dioxide BUN 52 H Creatinine Glucose 277 H POC Glucose 236 H 151 H Lactic Acid Calcium AST ALT Alkaline Phosphatase CK-MB (CK-2) CK-MB (CK-2) Rel Index Total Protein Albumin TSH Urine WBC (Auto) Salicylates 02/10/17 02/10/17 02/10/17 00:01 05:44 11:21 WBC RBC Hgb Hct MCV MCH RDW Plt Count Lymph % (Auto) [place] % (Auto) Eos % (Auto) Seg Neutrophils % Seg Neuts % (Manual) Lymphocytes % (Manual) Seg Neutrophils # Seg Neutrophils # Man Lymphocytes # (Manual) APTT POC ABG pH ABG pH POC ABG pCO2 POC ABG pO2 ABG pO2 ABG HCO3 ABG Base Excess ABG Hemoglobin VBG pH Oxyhemoglobin Sodium Potassium Chloride Carbon Dioxide BUN Creatinine Glucose POC Glucose 210 H 201 H 233 H Lactic Acid Calcium AST ALT Alkaline Phosphatase CK-MB (CK-2) CK-MB (CK-2) Rel Index Total Protein Albumin TSH Urine WBC (Auto) Salicylates 02/10/17 02/10/17 02/11/17 17:29 23:56 05:24 WBC RBC Hgb Hct MCV MCH RDW Plt Count Lymph % (Auto) [place] % (Auto) Eos % (Auto) Seg Neutrophils % Seg Neuts % (Manual) Lymphocytes % (Manual) Seg Neutrophils # Seg Neutrophils # Man Lymphocytes # (Manual) APTT POC ABG pH ABG pH POC ABG pCO2 POC ABG pO2 ABG pO2 ABG HCO3 ABG Base Excess ABG Hemoglobin VBG pH Oxyhemoglobin Sodium Potassium Chloride Carbon Dioxide BUN Creatinine Glucose POC Glucose 167 H 191 H 135 H Lactic Acid Calcium AST ALT Alkaline Phosphatase CK-MB (CK-2) CK-MB (CK-2) Rel Index Total Protein Albumin TSH Urine WBC (Auto) Salicylates 02/11/17 02/11/17 02/11/17 12:25 17:03 23:59 WBC RBC Hgb Hct MCV MCH RDW Plt Count Lymph % (Auto) [place] % (Auto) Eos % (Auto) Seg Neutrophils % Seg Neuts % (Manual) Lymphocytes % (Manual) Seg Neutrophils # Seg Neutrophils # Man Lymphocytes # (Manual) APTT POC ABG pH ABG pH POC ABG pCO2 POC ABG pO2 ABG pO2 ABG HCO3 ABG Base Excess ABG Hemoglobin VBG pH Oxyhemoglobin Sodium Potassium Chloride Carbon Dioxide BUN Creatinine Glucose POC Glucose 275 H 172 H 215 H Lactic Acid Calcium AST ALT Alkaline Phosphatase CK-MB (CK-2) CK-MB (CK-2) Rel Index Total Protein Albumin TSH Urine WBC (Auto) Salicylates 02/12/17 02/12/17 02/12/17 05:39 11:33 17:55 WBC RBC Hgb Hct MCV MCH RDW Plt Count Lymph % (Auto) [place] % (Auto) Eos % (Auto) Seg Neutrophils % Seg Neuts % (Manual) Lymphocytes % (Manual) Seg Neutrophils # Seg Neutrophils # Man Lymphocytes # (Manual) APTT POC ABG pH ABG pH POC ABG pCO2 POC ABG pO2 ABG pO2 ABG HCO3 ABG Base Excess ABG Hemoglobin VBG pH Oxyhemoglobin Sodium Potassium Chloride Carbon Dioxide BUN Creatinine Glucose POC Glucose 261 H 217 H 172 H Lactic Acid Calcium AST ALT Alkaline Phosphatase CK-MB (CK-2) CK-MB (CK-2) Rel Index Total Protein Albumin TSH Urine WBC (Auto) Salicylates 02/13/17 02/13/17 02/13/17 00:25 06:46 11:26 WBC RBC Hgb Hct MCV MCH RDW Plt Count Lymph % (Auto) [place] % (Auto) Eos % (Auto) Seg Neutrophils % Seg Neuts % (Manual) Lymphocytes % (Manual) Seg Neutrophils # Seg Neutrophils # Man Lymphocytes # (Manual) APTT POC ABG pH ABG pH POC ABG pCO2 POC ABG pO2 ABG pO2 ABG HCO3 ABG Base Excess ABG Hemoglobin VBG pH Oxyhemoglobin Sodium Potassium Chloride Carbon Dioxide BUN Creatinine Glucose POC Glucose 207 H 219 H 231 H Lactic Acid Calcium AST ALT Alkaline Phosphatase CK-MB (CK-2) CK-MB (CK-2) Rel Index Total Protein Albumin TSH Urine WBC (Auto) Salicylates 02/13/17 02/13/17 02/14/17 17:12 23:44 05:44 WBC RBC Hgb Hct MCV MCH RDW Plt Count Lymph % (Auto) [place] % (Auto) Eos % (Auto) Seg Neutrophils % Seg Neuts % (Manual) Lymphocytes % (Manual) Seg Neutrophils # Seg Neutrophils # Man Lymphocytes # (Manual) APTT POC ABG pH ABG pH POC ABG pCO2 POC ABG pO2 ABG pO2 ABG HCO3 ABG Base Excess ABG Hemoglobin VBG pH Oxyhemoglobin Sodium Potassium Chloride Carbon Dioxide BUN Creatinine Glucose POC Glucose 190 H 256 H 184 H Lactic Acid Calcium AST ALT Alkaline Phosphatase CK-MB (CK-2) CK-MB (CK-2) Rel Index Total Protein Albumin TSH Urine WBC (Auto) Salicylates 02/14/17 02/14/17 02/14/17 12:21 17:57 23:18 WBC RBC Hgb Hct MCV MCH RDW Plt Count Lymph % (Auto) [place] % (Auto) Eos % (Auto) Seg Neutrophils % Seg Neuts % (Manual) Lymphocytes % (Manual) Seg Neutrophils # Seg Neutrophils # Man Lymphocytes # (Manual) APTT POC ABG pH ABG pH POC ABG pCO2 POC ABG pO2 ABG pO2 ABG HCO3 ABG Base Excess ABG Hemoglobin VBG pH Oxyhemoglobin Sodium Potassium Chloride Carbon Dioxide BUN Creatinine Glucose POC Glucose 233 H 155 H 165 H Lactic Acid Calcium AST ALT Alkaline Phosphatase CK-MB (CK-2) CK-MB (CK-2) Rel Index Total Protein Albumin TSH Urine WBC (Auto) Salicylates 02/15/17 02/15/17 02/15/17 05:33 11:45 17:20 WBC RBC Hgb Hct MCV MCH RDW Plt Count Lymph % (Auto) [place] % (Auto) Eos % (Auto) Seg Neutrophils % Seg Neuts % (Manual) Lymphocytes % (Manual) Seg Neutrophils # Seg Neutrophils # Man Lymphocytes # (Manual) APTT POC ABG pH ABG pH POC ABG pCO2 POC ABG pO2 ABG pO2 ABG HCO3 ABG Base Excess ABG Hemoglobin VBG pH Oxyhemoglobin Sodium Potassium Chloride Carbon Dioxide BUN Creatinine Glucose POC Glucose 239 H 130 H 189 H Lactic Acid Calcium AST ALT Alkaline Phosphatase CK-MB (CK-2) CK-MB (CK-2) Rel Index Total Protein Albumin TSH Urine WBC (Auto) Salicylates 02/16/17 02/16/17 02/16/17 00:14 05:09 12:31 WBC RBC Hgb Hct MCV MCH RDW Plt Count Lymph % (Auto) [place] % (Auto) Eos % (Auto) Seg Neutrophils % Seg Neuts % (Manual) Lymphocytes % (Manual) Seg Neutrophils # Seg Neutrophils # Man Lymphocytes # (Manual) APTT POC ABG pH ABG pH POC ABG pCO2 POC ABG pO2 ABG pO2 ABG HCO3 ABG Base Excess ABG Hemoglobin VBG pH Oxyhemoglobin Sodium Potassium Chloride Carbon Dioxide BUN Creatinine Glucose POC Glucose 197 H 226 H 178 H Lactic Acid Calcium AST ALT Alkaline Phosphatase CK-MB (CK-2) CK-MB (CK-2) Rel Index Total Protein Albumin TSH Urine WBC (Auto) Salicylates 02/16/17 02/16/17 02/17/17 16:35 23:49 05:37 WBC RBC Hgb Hct MCV MCH RDW Plt Count Lymph % (Auto) [place] % (Auto) Eos % (Auto) Seg Neutrophils % Seg Neuts % (Manual) Lymphocytes % (Manual) Seg Neutrophils # Seg Neutrophils # Man Lymphocytes # (Manual) APTT POC ABG pH ABG pH POC ABG pCO2 POC ABG pO2 ABG pO2 ABG HCO3 ABG Base Excess ABG Hemoglobin VBG pH Oxyhemoglobin Sodium Potassium Chloride Carbon Dioxide BUN Creatinine Glucose POC Glucose 174 H 62 L 153 H Lactic Acid Calcium AST ALT Alkaline Phosphatase CK-MB (CK-2) CK-MB (CK-2) Rel Index Total Protein Albumin TSH Urine WBC (Auto) Salicylates 02/17/17 02/17/17 02/17/17 11:39 17:02 22:24 WBC RBC Hgb Hct MCV MCH RDW Plt Count Lymph % (Auto) [place] % (Auto) Eos % (Auto) Seg Neutrophils % Seg Neuts % (Manual) Lymphocytes % (Manual) Seg Neutrophils # Seg Neutrophils # Man Lymphocytes # (Manual) APTT POC ABG pH ABG pH POC ABG pCO2 POC ABG pO2 ABG pO2 ABG HCO3 ABG Base Excess ABG Hemoglobin VBG pH Oxyhemoglobin Sodium Potassium Chloride Carbon Dioxide BUN Creatinine Glucose POC Glucose 231 H 112 H 116 H Lactic Acid Calcium AST ALT Alkaline Phosphatase CK-MB (CK-2) CK-MB (CK-2) Rel Index Total Protein Albumin TSH Urine WBC (Auto) Salicylates 02/18/17 02/19/17 02/19/17 15:34 05:09 07:57 WBC RBC Hgb Hct MCV MCH RDW Plt Count Lymph % (Auto) [place] % (Auto) Eos % (Auto) Seg Neutrophils % Seg Neuts % (Manual) Lymphocytes % (Manual) Seg Neutrophils # Seg Neutrophils # Man Lymphocytes # (Manual) APTT POC ABG pH ABG pH POC ABG pCO2 POC ABG pO2 ABG pO2 ABG HCO3 ABG Base Excess ABG Hemoglobin VBG pH Oxyhemoglobin Sodium Potassium Chloride Carbon Dioxide BUN Creatinine Glucose POC Glucose 215 H 218 H 283 H Lactic Acid Calcium AST ALT Alkaline Phosphatase CK-MB (CK-2) CK-MB (CK-2) Rel Index Total Protein Albumin TSH Urine WBC (Auto) Salicylates 02/19/17 02/19/17 02/20/17 14:49 22:10 05:10 WBC RBC Hgb Hct MCV MCH RDW Plt Count Lymph % (Auto) [place] % (Auto) Eos % (Auto) Seg Neutrophils % Seg Neuts % (Manual) Lymphocytes % (Manual) Seg Neutrophils # Seg Neutrophils # Man Lymphocytes # (Manual) APTT POC ABG pH ABG pH POC ABG pCO2 POC ABG pO2 ABG pO2 ABG HCO3 ABG Base Excess ABG Hemoglobin VBG pH Oxyhemoglobin Sodium Potassium Chloride Carbon Dioxide BUN Creatinine Glucose POC Glucose 290 H 169 H 209 H Lactic Acid Calcium AST ALT Alkaline Phosphatase CK-MB (CK-2) CK-MB (CK-2) Rel Index Total Protein Albumin TSH Urine WBC (Auto) Salicylates 02/20/17 02/20/17 02/21/17 15:05 21:52 02:00 WBC RBC Hgb Hct MCV MCH RDW Plt Count Lymph % (Auto) [place] % (Auto) Eos % (Auto) Seg Neutrophils % Seg Neuts % (Manual) Lymphocytes % (Manual) Seg Neutrophils # Seg Neutrophils # Man Lymphocytes # (Manual) APTT POC ABG pH ABG pH POC ABG pCO2 POC ABG pO2 ABG pO2 ABG HCO3 ABG Base Excess ABG Hemoglobin VBG pH Oxyhemoglobin Sodium Potassium Chloride Carbon Dioxide BUN Creatinine Glucose POC Glucose 172 H 209 H 216 H Lactic Acid Calcium AST ALT Alkaline Phosphatase CK-MB (CK-2) CK-MB (CK-2) Rel Index Total Protein Albumin TSH Urine WBC (Auto) Salicylates 02/21/17 02/21/17 02/21/17 04:54 14:43 17:47 WBC RBC Hgb Hct MCV MCH RDW Plt Count Lymph % (Auto) [place] % (Auto) Eos % (Auto) Seg Neutrophils % Seg Neuts % (Manual) Lymphocytes % (Manual) Seg Neutrophils # Seg Neutrophils # Man Lymphocytes # (Manual) APTT POC ABG pH ABG pH POC ABG pCO2 POC ABG pO2 ABG pO2 ABG HCO3 ABG Base Excess ABG Hemoglobin VBG pH Oxyhemoglobin Sodium Potassium Chloride Carbon Dioxide BUN Creatinine Glucose POC Glucose 227 H 290 H 220 H Lactic Acid Calcium AST ALT Alkaline Phosphatase CK-MB (CK-2) CK-MB (CK-2) Rel Index Total Protein Albumin TSH Urine WBC (Auto) Salicylates 02/21/17 02/22/17 02/22/17 22:02 04:52 15:25 WBC RBC Hgb Hct MCV MCH RDW Plt Count Lymph % (Auto) [place] % (Auto) Eos % (Auto) Seg Neutrophils % Seg Neuts % (Manual) Lymphocytes % (Manual) Seg Neutrophils # Seg Neutrophils # Man Lymphocytes # (Manual) APTT POC ABG pH ABG pH POC ABG pCO2 POC ABG pO2 ABG pO2 ABG HCO3 ABG Base Excess ABG Hemoglobin VBG pH Oxyhemoglobin Sodium Potassium Chloride Carbon Dioxide BUN Creatinine Glucose POC Glucose 246 H 212 H 236 H Lactic Acid Calcium AST ALT Alkaline Phosphatase CK-MB (CK-2) CK-MB (CK-2) Rel Index Total Protein Albumin TSH Urine WBC (Auto) Salicylates 02/22/17 02/23/17 02/23/17 21:33 06:04 10:00 WBC RBC Hgb Hct MCV MCH RDW Plt Count Lymph % (Auto) [place] % (Auto) Eos % (Auto) Seg Neutrophils % Seg Neuts % (Manual) Lymphocytes % (Manual) Seg Neutrophils # Seg Neutrophils # Man Lymphocytes # (Manual) APTT POC ABG pH ABG pH POC ABG pCO2 POC ABG pO2 ABG pO2 ABG HCO3 ABG Base Excess ABG Hemoglobin VBG pH Oxyhemoglobin Sodium Potassium Chloride Carbon Dioxide BUN Creatinine Glucose POC Glucose 255 H 208 H 174 H Lactic Acid Calcium AST ALT Alkaline Phosphatase CK-MB (CK-2) CK-MB (CK-2) Rel Index Total Protein Albumin TSH Urine WBC (Auto) Salicylates 02/23/17 02/23/17 02/23/17 12:52 17:15 21:51 WBC RBC Hgb Hct MCV MCH RDW Plt Count Lymph % (Auto) [place] % (Auto) Eos % (Auto) Seg Neutrophils % Seg Neuts % (Manual) Lymphocytes % (Manual) Seg Neutrophils # Seg Neutrophils # Man Lymphocytes # (Manual) APTT POC ABG pH ABG pH POC ABG pCO2 POC ABG pO2 ABG pO2 ABG HCO3 ABG Base Excess ABG Hemoglobin VBG pH Oxyhemoglobin Sodium Potassium Chloride Carbon Dioxide BUN Creatinine Glucose POC Glucose 203 H 269 H 205 H Lactic Acid Calcium AST ALT Alkaline Phosphatase CK-MB (CK-2) CK-MB (CK-2) Rel Index Total Protein Albumin TSH Urine WBC (Auto) Salicylates 02/24/17 02/24/17 02/24/17 10:23 17:45 21:24 WBC RBC Hgb Hct MCV MCH RDW Plt Count Lymph % (Auto) [place] % (Auto) Eos % (Auto) Seg Neutrophils % Seg Neuts % (Manual) Lymphocytes % (Manual) Seg Neutrophils # Seg Neutrophils # Man Lymphocytes # (Manual) APTT POC ABG pH ABG pH POC ABG pCO2 POC ABG pO2 ABG pO2 ABG HCO3 ABG Base Excess ABG Hemoglobin VBG pH Oxyhemoglobin Sodium Potassium Chloride Carbon Dioxide BUN Creatinine Glucose POC Glucose 280 H 239 H 254 H Lactic Acid Calcium AST ALT Alkaline Phosphatase CK-MB (CK-2) CK-MB (CK-2) Rel Index Total Protein Albumin TSH Urine WBC (Auto) Salicylates 02/25/17 02/25/17 02/25/17 02:12 05:17 14:32 WBC RBC Hgb Hct MCV MCH RDW Plt Count Lymph % (Auto) [place] % (Auto) Eos % (Auto) Seg Neutrophils % Seg Neuts % (Manual) Lymphocytes % (Manual) Seg Neutrophils # Seg Neutrophils # Man Lymphocytes # (Manual) APTT POC ABG pH ABG pH POC ABG pCO2 POC ABG pO2 ABG pO2 ABG HCO3 ABG Base Excess ABG Hemoglobin VBG pH Oxyhemoglobin Sodium Potassium Chloride Carbon Dioxide BUN Creatinine Glucose POC Glucose 296 H 332 H 353 H Lactic Acid Calcium AST ALT Alkaline Phosphatase CK-MB (CK-2) CK-MB (CK-2) Rel Index Total Protein Albumin TSH Urine WBC (Auto) Salicylates 02/25/17 02/26/17 02/26/17 22:14 00:37 05:52 WBC RBC Hgb Hct MCV MCH RDW Plt Count Lymph % (Auto) [place] % (Auto) Eos % (Auto) Seg Neutrophils % Seg Neuts % (Manual) Lymphocytes % (Manual) Seg Neutrophils # Seg Neutrophils # Man Lymphocytes # (Manual) APTT POC ABG pH ABG pH POC ABG pCO2 POC ABG pO2 ABG pO2 ABG HCO3 ABG Base Excess ABG Hemoglobin VBG pH Oxyhemoglobin Sodium Potassium Chloride Carbon Dioxide BUN Creatinine Glucose POC Glucose 201 H 233 H 269 H Lactic Acid Calcium AST ALT Alkaline Phosphatase CK-MB (CK-2) CK-MB (CK-2) Rel Index Total Protein Albumin TSH Urine WBC (Auto) Salicylates 02/26/17 02/26/17 02/26/17 11:48 13:49 21:26 WBC RBC Hgb Hct MCV MCH RDW Plt Count Lymph % (Auto) [place] % (Auto) Eos % (Auto) Seg Neutrophils % Seg Neuts % (Manual) Lymphocytes % (Manual) Seg Neutrophils # Seg Neutrophils # Man Lymphocytes # (Manual) APTT POC ABG pH ABG pH POC ABG pCO2 POC ABG pO2 ABG pO2 ABG HCO3 ABG Base Excess ABG Hemoglobin VBG pH Oxyhemoglobin Sodium Potassium Chloride Carbon Dioxide BUN Creatinine Glucose POC Glucose 333 H 322 H 244 H Lactic Acid Calcium AST ALT Alkaline Phosphatase CK-MB (CK-2) CK-MB (CK-2) Rel Index Total Protein Albumin TSH Urine WBC (Auto) Salicylates 02/27/17 02/27/17 02/27/17 05:27 13:51 21:48 WBC RBC Hgb Hct MCV MCH RDW Plt Count Lymph % (Auto) [place] % (Auto) Eos % (Auto) Seg Neutrophils % Seg Neuts % (Manual) Lymphocytes % (Manual) Seg Neutrophils # Seg Neutrophils # Man Lymphocytes # (Manual) APTT POC ABG pH ABG pH POC ABG pCO2 POC ABG pO2 ABG pO2 ABG HCO3 ABG Base Excess ABG Hemoglobin VBG pH Oxyhemoglobin Sodium Potassium Chloride Carbon Dioxide BUN Creatinine Glucose POC Glucose 217 H 239 H 254 H Lactic Acid Calcium AST ALT Alkaline Phosphatase CK-MB (CK-2) CK-MB (CK-2) Rel Index Total Protein Albumin TSH Urine WBC (Auto) Salicylates 02/28/17 02/28/17 02/28/17 05:38 11:00 19:44 WBC RBC Hgb Hct MCV MCH RDW Plt Count Lymph % (Auto) [place] % (Auto) Eos % (Auto) Seg Neutrophils % Seg Neuts % (Manual) Lymphocytes % (Manual) Seg Neutrophils # Seg Neutrophils # Man Lymphocytes # (Manual) APTT POC ABG pH ABG pH POC ABG pCO2 POC ABG pO2 ABG pO2 ABG HCO3 ABG Base Excess ABG Hemoglobin VBG pH Oxyhemoglobin Sodium Potassium Chloride Carbon Dioxide BUN Creatinine Glucose POC Glucose 325 H 203 H 116 H Lactic Acid Calcium AST ALT Alkaline Phosphatase CK-MB (CK-2) CK-MB (CK-2) Rel Index Total Protein Albumin TSH Urine WBC (Auto) Salicylates 03/01/17 03/01/17 03/01/17 00:08 05:31 12:17 WBC RBC Hgb Hct MCV MCH RDW Plt Count Lymph % (Auto) [place] % (Auto) Eos % (Auto) Seg Neutrophils % Seg Neuts % (Manual) Lymphocytes % (Manual) Seg Neutrophils # Seg Neutrophils # Man Lymphocytes # (Manual) APTT POC ABG pH ABG pH POC ABG pCO2 POC ABG pO2 ABG pO2 ABG HCO3 ABG Base Excess ABG Hemoglobin VBG pH Oxyhemoglobin Sodium Potassium Chloride Carbon Dioxide BUN Creatinine Glucose POC Glucose 202 H 183 H 184 H Lactic Acid Calcium AST ALT Alkaline Phosphatase CK-MB (CK-2) CK-MB (CK-2) Rel Index Total Protein Albumin TSH Urine WBC (Auto) Salicylates 03/02/17 03/02/17 03/02/17 00:12 05:58 18:22 WBC RBC Hgb Hct MCV MCH RDW Plt Count Lymph % (Auto) [place] % (Auto) Eos % (Auto) Seg Neutrophils % Seg Neuts % (Manual) Lymphocytes % (Manual) Seg Neutrophils # Seg Neutrophils # Man Lymphocytes # (Manual) APTT POC ABG pH ABG pH POC ABG pCO2 POC ABG pO2 ABG pO2 ABG HCO3 ABG Base Excess ABG Hemoglobin VBG pH Oxyhemoglobin Sodium Potassium Chloride Carbon Dioxide BUN Creatinine Glucose POC Glucose 117 H 176 H 156 H Lactic Acid Calcium AST ALT Alkaline Phosphatase CK-MB (CK-2) CK-MB (CK-2) Rel Index Total Protein Albumin TSH Urine WBC (Auto) Salicylates 03/02/17 03/03/17 03/03/17 23:51 05:44 11:32 WBC RBC Hgb Hct MCV MCH RDW Plt Count Lymph % (Auto) [place] % (Auto) Eos % (Auto) Seg Neutrophils % Seg Neuts % (Manual) Lymphocytes % (Manual) Seg Neutrophils # Seg Neutrophils # Man Lymphocytes # (Manual) APTT POC ABG pH ABG pH POC ABG pCO2 POC ABG pO2 ABG pO2 ABG HCO3 ABG Base Excess ABG Hemoglobin VBG pH Oxyhemoglobin Sodium Potassium Chloride Carbon Dioxide BUN Creatinine Glucose POC Glucose 211 H 117 H 133 H Lactic Acid Calcium AST ALT Alkaline Phosphatase CK-MB (CK-2) CK-MB (CK-2) Rel Index Total Protein Albumin TSH Urine WBC (Auto) Salicylates 03/03/17 03/03/17 03/04/17 17:43 23:17 05:30 WBC RBC Hgb Hct MCV MCH RDW Plt Count Lymph % (Auto) [place] % (Auto) Eos % (Auto) Seg Neutrophils % Seg Neuts % (Manual) Lymphocytes % (Manual) Seg Neutrophils # Seg Neutrophils # Man Lymphocytes # (Manual) APTT POC ABG pH ABG pH POC ABG pCO2 POC ABG pO2 ABG pO2 ABG HCO3 ABG Base Excess ABG Hemoglobin VBG pH Oxyhemoglobin Sodium Potassium Chloride Carbon Dioxide BUN Creatinine Glucose POC Glucose 206 H 170 H 126 H Lactic Acid Calcium AST ALT Alkaline Phosphatase CK-MB (CK-2) CK-MB (CK-2) Rel Index Total Protein Albumin TSH Urine WBC (Auto) Salicylates 03/04/17 03/04/17 03/05/17 12:17 17:27 05:20 WBC RBC Hgb Hct MCV MCH RDW Plt Count Lymph % (Auto) [place] % (Auto) Eos % (Auto) Seg Neutrophils % Seg Neuts % (Manual) Lymphocytes % (Manual) Seg Neutrophils # Seg Neutrophils # Man Lymphocytes # (Manual) APTT POC ABG pH ABG pH POC ABG pCO2 POC ABG pO2 ABG pO2 ABG HCO3 ABG Base Excess ABG Hemoglobin VBG pH Oxyhemoglobin Sodium Potassium Chloride Carbon Dioxide BUN Creatinine Glucose POC Glucose 135 H 121 H 185 H Lactic Acid Calcium AST ALT Alkaline Phosphatase CK-MB (CK-2) CK-MB (CK-2) Rel Index Total Protein Albumin TSH Urine WBC (Auto) Salicylates 03/05/17 03/06/17 03/06/17 11:50 11:52 17:34 WBC RBC Hgb Hct MCV MCH RDW Plt Count Lymph % (Auto) [place] % (Auto) Eos % (Auto) Seg Neutrophils % Seg Neuts % (Manual) Lymphocytes % (Manual) Seg Neutrophils # Seg Neutrophils # Man Lymphocytes # (Manual) APTT POC ABG pH ABG pH POC ABG pCO2 POC ABG pO2 ABG pO2 ABG HCO3 ABG Base Excess ABG Hemoglobin VBG pH Oxyhemoglobin Sodium Potassium Chloride Carbon Dioxide BUN Creatinine Glucose POC Glucose 116 H 133 H 181 H Lactic Acid Calcium AST ALT Alkaline Phosphatase CK-MB (CK-2) CK-MB (CK-2) Rel Index Total Protein Albumin TSH Urine WBC (Auto) Salicylates 03/07/17 03/07/17 03/07/17 05:21 11:36 17:49 WBC RBC Hgb Hct MCV MCH RDW Plt Count Lymph % (Auto) [place] % (Auto) Eos % (Auto) Seg Neutrophils % Seg Neuts % (Manual) Lymphocytes % (Manual) Seg Neutrophils # Seg Neutrophils # Man Lymphocytes # (Manual) APTT POC ABG pH ABG pH POC ABG pCO2 POC ABG pO2 ABG pO2 ABG HCO3 ABG Base Excess ABG Hemoglobin VBG pH Oxyhemoglobin Sodium Potassium Chloride Carbon Dioxide BUN Creatinine Glucose POC Glucose 159 H 137 H 158 H Lactic Acid Calcium AST ALT Alkaline Phosphatase CK-MB (CK-2) CK-MB (CK-2) Rel Index Total Protein Albumin TSH Urine WBC (Auto) Salicylates 03/08/17 03/08/17 03/08/17 05:51 13:58 23:50 WBC RBC Hgb Hct MCV MCH RDW Plt Count Lymph % (Auto) [place] % (Auto) Eos % (Auto) Seg Neutrophils % Seg Neuts % (Manual) Lymphocytes % (Manual) Seg Neutrophils # Seg Neutrophils # Man Lymphocytes # (Manual) APTT POC ABG pH ABG pH POC ABG pCO2 POC ABG pO2 ABG pO2 ABG HCO3 ABG Base Excess ABG Hemoglobin VBG pH Oxyhemoglobin Sodium Potassium Chloride Carbon Dioxide BUN Creatinine Glucose POC Glucose 122 H 182 H 114 H Lactic Acid Calcium AST ALT Alkaline Phosphatase CK-MB (CK-2) CK-MB (CK-2) Rel Index Total Protein Albumin TSH Urine WBC (Auto) Salicylates 03/09/17 03/09/17 03/09/17 05:21 05:51 05:51 WBC RBC 3.61 L Hgb 9.5 L Hct 28.3 L MCV 79 L MCH 26 L RDW 17.8 H Plt Count Lymph % (Auto) [place] % (Auto) Eos % (Auto) Seg Neutrophils % Seg Neuts % (Manual) Lymphocytes % (Manual) Seg Neutrophils # Seg Neutrophils # Man Lymphocytes # (Manual) APTT POC ABG pH ABG pH POC ABG pCO2 POC ABG pO2 ABG pO2 ABG HCO3 ABG Base Excess ABG Hemoglobin VBG pH Oxyhemoglobin Sodium 134 L Potassium Chloride 95.5 L Carbon Dioxide BUN 33 H Creatinine 0.5 L Glucose 143 H POC Glucose 153 H Lactic Acid Calcium AST ALT Alkaline Phosphatase CK-MB (CK-2) CK-MB (CK-2) Rel Index Total Protein Albumin TSH Urine WBC (Auto) Salicylates 03/09/17 03/09/17 03/09/17 12:10 18:13 21:00 WBC RBC Hgb Hct MCV MCH RDW Plt Count Lymph % (Auto) [place] % (Auto) Eos % (Auto) Seg Neutrophils % Seg Neuts % (Manual) Lymphocytes % (Manual) Seg Neutrophils # Seg Neutrophils # Man Lymphocytes # (Manual) APTT POC ABG pH ABG pH POC ABG pCO2 POC ABG pO2 ABG pO2 ABG HCO3 ABG Base Excess ABG Hemoglobin VBG pH Oxyhemoglobin Sodium Potassium Chloride Carbon Dioxide BUN Creatinine Glucose POC Glucose 203 H 221 H 198 H Lactic Acid Calcium AST ALT Alkaline Phosphatase CK-MB (CK-2) CK-MB (CK-2) Rel Index Total Protein Albumin TSH Urine WBC (Auto) Salicylates 03/09/17 03/10/17 03/10/17 23:58 05:09 05:09 WBC RBC Hgb 10.3 L Hct 30.5 L MCV 78 L MCH 26 L RDW 17.9 H Plt Count Lymph % (Auto) [place] % (Auto) 10.0 H Eos % (Auto) 6.0 H Seg Neutrophils % Seg Neuts % (Manual) Lymphocytes % (Manual) Seg Neutrophils # Seg Neutrophils # Man Lymphocytes # (Manual) APTT POC ABG pH ABG pH POC ABG pCO2 POC ABG pO2 ABG pO2 ABG HCO3 ABG Base Excess ABG Hemoglobin VBG pH Oxyhemoglobin Sodium 132 L Potassium Chloride 92.2 L Carbon Dioxide BUN 33 H Creatinine 0.5 L Glucose 50 L POC Glucose 167 H Lactic Acid Calcium AST ALT Alkaline Phosphatase CK-MB (CK-2) CK-MB (CK-2) Rel Index Total Protein Albumin TSH Urine WBC (Auto) Salicylates 03/10/17 03/10/17 03/10/17 05:33 05:34 11:48 WBC RBC Hgb Hct MCV MCH RDW Plt Count Lymph % (Auto) [place] % (Auto) Eos % (Auto) Seg Neutrophils % Seg Neuts % (Manual) Lymphocytes % (Manual) Seg Neutrophils # Seg Neutrophils # Man Lymphocytes # (Manual) APTT POC ABG pH ABG pH POC ABG pCO2 POC ABG pO2 ABG pO2 ABG HCO3 ABG Base Excess ABG Hemoglobin VBG pH Oxyhemoglobin Sodium Potassium Chloride Carbon Dioxide BUN Creatinine Glucose POC Glucose 52 L 53 L 148 H Lactic Acid Calcium AST ALT Alkaline Phosphatase CK-MB (CK-2) CK-MB (CK-2) Rel Index Total Protein Albumin TSH Urine WBC (Auto) Salicylates 03/10/17 03/10/17 03/11/17 17:53 23:47 05:18 WBC RBC Hgb Hct MCV MCH RDW Plt Count Lymph % (Auto) [place] % (Auto) Eos % (Auto) Seg Neutrophils % Seg Neuts % (Manual) Lymphocytes % (Manual) Seg Neutrophils # Seg Neutrophils # Man Lymphocytes # (Manual) APTT POC ABG pH ABG pH POC ABG pCO2 POC ABG pO2 ABG pO2 ABG HCO3 ABG Base Excess ABG Hemoglobin VBG pH Oxyhemoglobin Sodium Potassium Chloride Carbon Dioxide BUN Creatinine Glucose POC Glucose 189 H 398 H 126 H Lactic Acid Calcium AST ALT Alkaline Phosphatase CK-MB (CK-2) CK-MB (CK-2) Rel Index Total Protein Albumin TSH Urine WBC (Auto) Salicylates 03/11/17 03/11/17 03/11/17 11:53 17:30 23:10 WBC RBC Hgb Hct MCV MCH RDW Plt Count Lymph % (Auto) [place] % (Auto) Eos % (Auto) Seg Neutrophils % Seg Neuts % (Manual) Lymphocytes % (Manual) Seg Neutrophils # Seg Neutrophils # Man Lymphocytes # (Manual) APTT POC ABG pH ABG pH POC ABG pCO2 POC ABG pO2 ABG pO2 ABG HCO3 ABG Base Excess ABG Hemoglobin VBG pH Oxyhemoglobin Sodium Potassium Chloride Carbon Dioxide BUN Creatinine Glucose POC Glucose 198 H 142 H 244 H Lactic Acid Calcium AST ALT Alkaline Phosphatase CK-MB (CK-2) CK-MB (CK-2) Rel Index Total Protein Albumin TSH Urine WBC (Auto) Salicylates 03/12/17 03/12/17 03/12/17 04:36 11:49 17:23 WBC RBC Hgb Hct MCV MCH RDW Plt Count Lymph % (Auto) [place] % (Auto) Eos % (Auto) Seg Neutrophils % Seg Neuts % (Manual) Lymphocytes % (Manual) Seg Neutrophils # Seg Neutrophils # Man Lymphocytes # (Manual) APTT POC ABG pH ABG pH POC ABG pCO2 POC ABG pO2 ABG pO2 ABG HCO3 ABG Base Excess ABG Hemoglobin VBG pH Oxyhemoglobin Sodium Potassium Chloride Carbon Dioxide BUN Creatinine Glucose POC Glucose 205 H 197 H 209 H Lactic Acid Calcium AST ALT Alkaline Phosphatase CK-MB (CK-2) CK-MB (CK-2) Rel Index Total Protein Albumin TSH Urine WBC (Auto) Salicylates 12/05/2803/13/17 03/13/17 23:51 05:32 11:43 WBC RBC Hgb Hct MCV MCH RDW Plt Count Lymph % (Auto) [place] % (Auto) Eos % (Auto) Seg Neutrophils % Seg Neuts % (Manual) Lymphocytes % (Manual) Seg Neutrophils # Seg Neutrophils # Man Lymphocytes # (Manual) APTT POC ABG pH ABG pH POC ABG pCO2 POC ABG pO2 ABG pO2 ABG HCO3 ABG Base Excess ABG Hemoglobin VBG pH Oxyhemoglobin Sodium Potassium Chloride Carbon Dioxide BUN Creatinine Glucose POC Glucose 210 H 154 H 164 H Lactic Acid Calcium AST ALT Alkaline Phosphatase CK-MB (CK-2) CK-MB (CK-2) Rel Index Total Protein Albumin TSH Urine WBC (Auto) Salicylates 03/13/17 03/13/17 03/14/17 17:11 23:26 05:42 WBC RBC Hgb Hct MCV MCH RDW Plt Count Lymph % (Auto) [place] % (Auto) Eos % (Auto) Seg Neutrophils % Seg Neuts % (Manual) Lymphocytes % (Manual) Seg Neutrophils # Seg Neutrophils # Man Lymphocytes # (Manual) APTT POC ABG pH ABG pH POC ABG pCO2 POC ABG pO2 ABG pO2 ABG HCO3 ABG Base Excess ABG Hemoglobin VBG pH Oxyhemoglobin Sodium Potassium Chloride Carbon Dioxide BUN Creatinine Glucose POC Glucose 195 H 240 H 230 H Lactic Acid Calcium AST ALT Alkaline Phosphatase CK-MB (CK-2) CK-MB (CK-2) Rel Index Total Protein Albumin TSH Urine WBC (Auto) Salicylates 03/14/17 03/14/17 03/14/17 14:04 17:34 23:42 WBC RBC Hgb Hct MCV MCH RDW Plt Count Lymph % (Auto) [place] % (Auto) Eos % (Auto) Seg Neutrophils % Seg Neuts % (Manual) Lymphocytes % (Manual) Seg Neutrophils # Seg Neutrophils # Man Lymphocytes # (Manual) APTT POC ABG pH ABG pH POC ABG pCO2 POC ABG pO2 ABG pO2 ABG HCO3 ABG Base Excess ABG Hemoglobin VBG pH Oxyhemoglobin Sodium Potassium Chloride Carbon Dioxide BUN Creatinine Glucose POC Glucose 227 H 186 H 225 H Lactic Acid Calcium AST ALT Alkaline Phosphatase CK-MB (CK-2) CK-MB (CK-2) Rel Index Total Protein Albumin TSH Urine WBC (Auto) Salicylates 03/15/17 03/15/1717 05:21 17:13 21:37 WBC RBC Hgb Hct MCV MCH RDW Plt Count Lymph % (Auto) [place] % (Auto) Eos % (Auto) Seg Neutrophils % Seg Neuts % (Manual) Lymphocytes % (Manual) Seg Neutrophils # Seg Neutrophils # Man Lymphocytes # (Manual) APTT POC ABG pH ABG pH POC ABG pCO2 POC ABG pO2 ABG pO2 ABG HCO3 ABG Base Excess ABG Hemoglobin VBG pH Oxyhemoglobin Sodium Potassium Chloride Carbon Dioxide BUN Creatinine Glucose POC Glucose 244 H 203 H 216 H Lactic Acid Calcium AST ALT Alkaline Phosphatase CK-MB (CK-2) CK-MB (CK-2) Rel Index Total Protein Albumin TSH Urine WBC (Auto) Salicylates 03/16/17 03/16/17 03/16/17 05:52 18:07 21:54 WBC RBC Hgb Hct MCV MCH RDW Plt Count Lymph % (Auto) [place] % (Auto) Eos % (Auto) Seg Neutrophils % Seg Neuts % (Manual) Lymphocytes % (Manual) Seg Neutrophils # Seg Neutrophils # Man Lymphocytes # (Manual) APTT POC ABG pH ABG pH POC ABG pCO2 POC ABG pO2 ABG pO2 ABG HCO3 ABG Base Excess ABG Hemoglobin VBG pH Oxyhemoglobin Sodium Potassium Chloride Carbon Dioxide BUN Creatinine Glucose POC Glucose 248 H 254 H 244 H Lactic Acid Calcium AST ALT Alkaline Phosphatase CK-MB (CK-2) CK-MB (CK-2) Rel Index Total Protein Albumin TSH Urine WBC (Auto) Salicylates 03/17/17 03/17/17 03/17/17 07:07 07:42 07:43 WBC RBC Hgb 9.7 L Hct 29.1 L MCV 78 L MCH 26 L RDW 17.4 H Plt Count Lymph % (Auto) [place] % (Auto) Eos % (Auto) Seg Neutrophils % Seg Neuts % (Manual) Lymphocytes % (Manual) Seg Neutrophils # Seg Neutrophils # Man Lymphocytes # (Manual) APTT POC ABG pH ABG pH POC ABG pCO2 POC ABG pO2 ABG pO2 ABG HCO3 ABG Base Excess ABG Hemoglobin VBG pH Oxyhemoglobin Sodium Potassium Chloride 96.6 L Carbon Dioxide BUN 30 H Creatinine 0.5 L Glucose 251 H POC Glucose 222 H Lactic Acid Calcium AST ALT Alkaline Phosphatase CK-MB (CK-2) CK-MB (CK-2) Rel Index Total Protein Albumin TSH Urine WBC (Auto) Salicylates 03/17/17 03/17/17 03/18/17 14:08 21:20 14:24 WBC RBC Hgb Hct MCV MCH RDW Plt Count Lymph % (Auto) [place] % (Auto) Eos % (Auto) Seg Neutrophils % Seg Neuts % (Manual) Lymphocytes % (Manual) Seg Neutrophils # Seg Neutrophils # Man Lymphocytes # (Manual) APTT POC ABG pH ABG pH POC ABG pCO2 POC ABG pO2 ABG pO2 ABG HCO3 ABG Base Excess ABG Hemoglobin VBG pH Oxyhemoglobin Sodium Potassium Chloride Carbon Dioxide BUN Creatinine Glucose POC Glucose 281 H 239 H 195 H Lactic Acid Calcium AST ALT Alkaline Phosphatase CK-MB (CK-2) CK-MB (CK-2) Rel Index Total Protein Albumin TSH Urine WBC (Auto) Salicylates 03/18/17 03/19/17 03/19/17 21:37 04:57 14:23 WBC RBC Hgb Hct MCV MCH RDW Plt Count Lymph % (Auto) [place] % (Auto) Eos % (Auto) Seg Neutrophils % Seg Neuts % (Manual) Lymphocytes % (Manual) Seg Neutrophils # Seg Neutrophils # Man Lymphocytes # (Manual) APTT POC ABG pH ABG pH POC ABG pCO2 POC ABG pO2 ABG pO2 ABG HCO3 ABG Base Excess ABG Hemoglobin VBG pH Oxyhemoglobin Sodium Potassium Chloride Carbon Dioxide BUN Creatinine Glucose POC Glucose 227 H 205 H 277 H Lactic Acid Calcium AST ALT Alkaline Phosphatase CK-MB (CK-2) CK-MB (CK-2) Rel Index Total Protein Albumin TSH Urine WBC (Auto) Salicylates 03/19/17 03/19/17 03/20/17 20:31 21:47 04:55 WBC RBC Hgb Hct MCV MCH RDW Plt Count Lymph % (Auto) [place] % (Auto) Eos % (Auto) Seg Neutrophils % Seg Neuts % (Manual) Lymphocytes % (Manual) Seg Neutrophils # Seg Neutrophils # Man Lymphocytes # (Manual) APTT POC ABG pH ABG pH POC ABG pCO2 POC ABG pO2 ABG pO2 ABG HCO3 ABG Base Excess ABG Hemoglobin VBG pH Oxyhemoglobin Sodium Potassium Chloride Carbon Dioxide BUN Creatinine Glucose POC Glucose 256 H 270 H 202 H Lactic Acid Calcium AST ALT Alkaline Phosphatase CK-MB (CK-2) CK-MB (CK-2) Rel Index Total Protein Albumin TSH Urine WBC (Auto) Salicylates 03/20/17 03/20/17 03/21/17 14:09 21:40 05:09 WBC RBC Hgb Hct MCV MCH RDW Plt Count Lymph % (Auto) [place] % (Auto) Eos % (Auto) Seg Neutrophils % Seg Neuts % (Manual) Lymphocytes % (Manual) Seg Neutrophils # Seg Neutrophils # Man Lymphocytes # (Manual) APTT POC ABG pH ABG pH POC ABG pCO2 POC ABG pO2 ABG pO2 ABG HCO3 ABG Base Excess ABG Hemoglobin VBG pH Oxyhemoglobin Sodium Potassium Chloride Carbon Dioxide BUN Creatinine Glucose POC Glucose 200 H 214 H 233 H Lactic Acid Calcium AST ALT Alkaline Phosphatase CK-MB (CK-2) CK-MB (CK-2) Rel Index Total Protein Albumin TSH Urine WBC (Auto) Salicylates 03/21/17 03/21/17 03/22/17 14:06 21:26 05:43 WBC RBC Hgb Hct MCV MCH RDW Plt Count Lymph % (Auto) [place] % (Auto) Eos % (Auto) Seg Neutrophils % Seg Neuts % (Manual) Lymphocytes % (Manual) Seg Neutrophils # Seg Neutrophils # Man Lymphocytes # (Manual) APTT POC ABG pH ABG pH POC ABG pCO2 POC ABG pO2 ABG pO2 ABG HCO3 ABG Base Excess ABG Hemoglobin VBG pH Oxyhemoglobin Sodium Potassium Chloride Carbon Dioxide BUN Creatinine Glucose POC Glucose 250 H 155 H 251 H Lactic Acid Calcium AST ALT Alkaline Phosphatase CK-MB (CK-2) CK-MB (CK-2) Rel Index Total Protein Albumin TSH Urine WBC (Auto) Salicylates 03/22/17 03/22/17 03/23/17 13:46 21:16 00:23 WBC RBC Hgb Hct MCV MCH RDW Plt Count Lymph % (Auto) [place] % (Auto) Eos % (Auto) Seg Neutrophils % Seg Neuts % (Manual) Lymphocytes % (Manual) Seg Neutrophils # Seg Neutrophils # Man Lymphocytes # (Manual) APTT POC ABG pH ABG pH POC ABG pCO2 POC ABG pO2 ABG pO2 ABG HCO3 ABG Base Excess ABG Hemoglobin VBG pH Oxyhemoglobin Sodium Potassium Chloride Carbon Dioxide BUN Creatinine Glucose POC Glucose 269 H 197 H 126 H Lactic Acid Calcium AST ALT Alkaline Phosphatase CK-MB (CK-2) CK-MB (CK-2) Rel Index Total Protein Albumin TSH Urine WBC (Auto) Salicylates 03/23/17 03/23/17 03/23/17 05:39 14:06 21:39 WBC RBC Hgb Hct MCV MCH RDW Plt Count Lymph % (Auto) [place] % (Auto) Eos % (Auto) Seg Neutrophils % Seg Neuts % (Manual) Lymphocytes % (Manual) Seg Neutrophils # Seg Neutrophils # Man Lymphocytes # (Manual) APTT POC ABG pH ABG pH POC ABG pCO2 POC ABG pO2 ABG pO2 ABG HCO3 ABG Base Excess ABG Hemoglobin VBG pH Oxyhemoglobin Sodium Potassium Chloride Carbon Dioxide BUN Creatinine Glucose POC Glucose 234 H 241 H 248 H Lactic Acid Calcium AST ALT Alkaline Phosphatase CK-MB (CK-2) CK-MB (CK-2) Rel Index Total Protein Albumin TSH Urine WBC (Auto) Salicylates 03/24/17 03/24/17 03/25/17 05:06 21:46 05:38 WBC RBC Hgb Hct MCV MCH RDW Plt Count Lymph % (Auto) [place] % (Auto) Eos % (Auto) Seg Neutrophils % Seg Neuts % (Manual) Lymphocytes % (Manual) Seg Neutrophils # Seg Neutrophils # Man Lymphocytes # (Manual) APTT POC ABG pH ABG pH POC ABG pCO2 POC ABG pO2 ABG pO2 ABG HCO3 ABG Base Excess ABG Hemoglobin VBG pH Oxyhemoglobin Sodium Potassium Chloride Carbon Dioxide BUN Creatinine Glucose POC Glucose 232 H 276 H 242 H Lactic Acid Calcium AST ALT Alkaline Phosphatase CK-MB (CK-2) CK-MB (CK-2) Rel Index Total Protein Albumin TSH Urine WBC (Auto) Salicylates 03/25/17 03/25/17 03/26/17 14:30 23:14 13:53 WBC RBC Hgb Hct MCV MCH RDW Plt Count Lymph % (Auto) [place] % (Auto) Eos % (Auto) Seg Neutrophils % Seg Neuts % (Manual) Lymphocytes % (Manual) Seg Neutrophils # Seg Neutrophils # Man Lymphocytes # (Manual) APTT POC ABG pH ABG pH POC ABG pCO2 POC ABG pO2 ABG pO2 ABG HCO3 ABG Base Excess ABG Hemoglobin VBG pH Oxyhemoglobin Sodium Potassium Chloride Carbon Dioxide BUN Creatinine Glucose POC Glucose 246 H 208 H 195 H Lactic Acid Calcium AST ALT Alkaline Phosphatase CK-MB (CK-2) CK-MB (CK-2) Rel Index Total Protein Albumin TSH Urine WBC (Auto) Salicylates 03/26/17 03/27/17 03/27/17 21:58 05:18 14:57 WBC RBC Hgb Hct MCV MCH RDW Plt Count Lymph % (Auto) [place] % (Auto) Eos % (Auto) Seg Neutrophils % Seg Neuts % (Manual) Lymphocytes % (Manual) Seg Neutrophils # Seg Neutrophils # Man Lymphocytes # (Manual) APTT POC ABG pH ABG pH POC ABG pCO2 POC ABG pO2 ABG pO2 ABG HCO3 ABG Base Excess ABG Hemoglobin VBG pH Oxyhemoglobin Sodium Potassium Chloride Carbon Dioxide BUN Creatinine Glucose POC Glucose 241 H 199 H 269 H Lactic Acid Calcium AST ALT Alkaline Phosphatase CK-MB (CK-2) CK-MB (CK-2) Rel Index Total Protein Albumin TSH Urine WBC (Auto) Salicylates 03/27/17 03/28/17 03/28/17 21:33 13:52 21:29 WBC RBC Hgb Hct MCV MCH RDW Plt Count Lymph % (Auto) [place] % (Auto) Eos % (Auto) Seg Neutrophils % Seg Neuts % (Manual) Lymphocytes % (Manual) Seg Neutrophils # Seg Neutrophils # Man Lymphocytes # (Manual) APTT POC ABG pH ABG pH POC ABG pCO2 POC ABG pO2 ABG pO2 ABG HCO3 ABG Base Excess ABG Hemoglobin VBG pH Oxyhemoglobin Sodium Potassium Chloride Carbon Dioxide BUN Creatinine Glucose POC Glucose 214 H 243 H 286 H Lactic Acid Calcium AST ALT Alkaline Phosphatase CK-MB (CK-2) CK-MB (CK-2) Rel Index Total Protein Albumin TSH Urine WBC (Auto) Salicylates 03/29/17 03/29/17 03/29/17 04:32 04:32 13:58 WBC RBC Hgb 10.6 L Hct 32.9 L MCV 78 L MCH 25 L RDW 17.6 H Plt Count Lymph % (Auto) 38.0 H [place] % (Auto) 9.7 H Eos % (Auto) Seg Neutrophils % Seg Neuts % (Manual) Lymphocytes % (Manual) Seg Neutrophils # Seg Neutrophils # Man Lymphocytes # (Manual) APTT POC ABG pH ABG pH POC ABG pCO2 POC ABG pO2 ABG pO2 ABG HCO3 ABG Base Excess ABG Hemoglobin VBG pH Oxyhemoglobin Sodium 132 L Potassium Chloride 94.0 L Carbon Dioxide BUN 28 H Creatinine 0.5 L Glucose 236 H POC Glucose 171 H Lactic Acid Calcium AST ALT 71 H Alkaline Phosphatase 391 H CK-MB (CK-2) CK-MB (CK-2) Rel Index Total Protein 8.3 H Albumin 2.9 L TSH Urine WBC (Auto) Salicylates 03/29/17 03/30/17 03/30/17 20:59 06:07 11:52 WBC RBC Hgb Hct MCV MCH RDW Plt Count Lymph % (Auto) [place] % (Auto) Eos % (Auto) Seg Neutrophils % Seg Neuts % (Manual) Lymphocytes % (Manual) Seg Neutrophils # Seg Neutrophils # Man Lymphocytes # (Manual) APTT POC ABG pH ABG pH POC ABG pCO2 POC ABG pO2 ABG pO2 ABG HCO3 ABG Base Excess ABG Hemoglobin VBG pH Oxyhemoglobin Sodium Potassium Chloride Carbon Dioxide BUN Creatinine Glucose POC Glucose 215 H 259 H 197 H Lactic Acid Calcium AST ALT Alkaline Phosphatase CK-MB (CK-2) CK-MB (CK-2) Rel Index Total Protein Albumin TSH Urine WBC (Auto) Salicylates 03/30/17 03/31/17 03/31/17 21:34 05:42 14:34 WBC RBC Hgb Hct MCV MCH RDW Plt Count Lymph % (Auto) [place] % (Auto) Eos % (Auto) Seg Neutrophils % Seg Neuts % (Manual) Lymphocytes % (Manual) Seg Neutrophils # Seg Neutrophils # Man Lymphocytes # (Manual) APTT POC ABG pH ABG pH POC ABG pCO2 POC ABG pO2 ABG pO2 ABG HCO3 ABG Base Excess ABG Hemoglobin VBG pH Oxyhemoglobin Sodium Potassium Chloride Carbon Dioxide BUN Creatinine Glucose POC Glucose 207 H 184 H 213 H Lactic Acid Calcium AST ALT Alkaline Phosphatase CK-MB (CK-2) CK-MB (CK-2) Rel Index Total Protein Albumin TSH Urine WBC (Auto) Salicylates 03/31/17 04/01/17 04/01/17 21:32 05:53 13:48 WBC RBC Hgb Hct MCV MCH RDW Plt Count Lymph % (Auto) [place] % (Auto) Eos % (Auto) Seg Neutrophils % Seg Neuts % (Manual) Lymphocytes % (Manual) Seg Neutrophils # Seg Neutrophils # Man Lymphocytes # (Manual) APTT POC ABG pH ABG pH POC ABG pCO2 POC ABG pO2 ABG pO2 ABG HCO3 ABG Base Excess ABG Hemoglobin VBG pH Oxyhemoglobin Sodium Potassium Chloride Carbon Dioxide BUN Creatinine Glucose POC Glucose 249 H 225 H 256 H Lactic Acid Calcium AST ALT Alkaline Phosphatase CK-MB (CK-2) CK-MB (CK-2) Rel Index Total Protein Albumin TSH Urine WBC (Auto) Salicylates 04/01/17 04/02/17 04/02/17 21:34 05:32 14:05 WBC RBC Hgb Hct MCV MCH RDW Plt Count Lymph % (Auto) [place] % (Auto) Eos % (Auto) Seg Neutrophils % Seg Neuts % (Manual) Lymphocytes % (Manual) Seg Neutrophils # Seg Neutrophils # Man Lymphocytes # (Manual) APTT POC ABG pH ABG pH POC ABG pCO2 POC ABG pO2 ABG pO2 ABG HCO3 ABG Base Excess ABG Hemoglobin VBG pH Oxyhemoglobin Sodium Potassium Chloride Carbon Dioxide BUN Creatinine Glucose POC Glucose 292 H 220 H 187 H Lactic Acid Calcium AST ALT Alkaline Phosphatase CK-MB (CK-2) CK-MB (CK-2) Rel Index Total Protein Albumin TSH Urine WBC (Auto) Salicylates 04/02/17 04/03/17 04/03/17 21:57 04:49 14:12 WBC RBC Hgb Hct MCV MCH RDW Plt Count Lymph % (Auto) [place] % (Auto) Eos % (Auto) Seg Neutrophils % Seg Neuts % (Manual) Lymphocytes % (Manual) Seg Neutrophils # Seg Neutrophils # Man Lymphocytes # (Manual) APTT POC ABG pH ABG pH POC ABG pCO2 POC ABG pO2 ABG pO2 ABG HCO3 ABG Base Excess ABG Hemoglobin VBG pH Oxyhemoglobin Sodium Potassium Chloride Carbon Dioxide BUN Creatinine Glucose POC Glucose 285 H 256 H 197 H Lactic Acid Calcium AST ALT Alkaline Phosphatase CK-MB (CK-2) CK-MB (CK-2) Rel Index Total Protein Albumin TSH Urine WBC (Auto) Salicylates 04/03/17 04/04/17 04/04/17 21:11 05:20 13:18 WBC RBC Hgb Hct MCV MCH RDW Plt Count Lymph % (Auto) [place] % (Auto) Eos % (Auto) Seg Neutrophils % Seg Neuts % (Manual) Lymphocytes % (Manual) Seg Neutrophils # Seg Neutrophils # Man Lymphocytes # (Manual) APTT POC ABG pH ABG pH POC ABG pCO2 POC ABG pO2 ABG pO2 ABG HCO3 ABG Base Excess ABG Hemoglobin VBG pH Oxyhemoglobin Sodium Potassium Chloride Carbon Dioxide BUN Creatinine Glucose POC Glucose 166 H 228 H 252 H Lactic Acid Calcium AST ALT Alkaline Phosphatase CK-MB (CK-2) CK-MB (CK-2) Rel Index Total Protein Albumin TSH Urine WBC (Auto) Salicylates 04/04/17 04/05/17 04/05/17 21:51 06:14 09:54 WBC RBC Hgb Hct MCV MCH RDW Plt Count Lymph % (Auto) [place] % (Auto) Eos % (Auto) Seg Neutrophils % Seg Neuts % (Manual) Lymphocytes % (Manual) Seg Neutrophils # Seg Neutrophils # Man Lymphocytes # (Manual) APTT POC ABG pH ABG pH POC ABG pCO2 POC ABG pO2 ABG pO2 ABG HCO3 ABG Base Excess ABG Hemoglobin VBG pH Oxyhemoglobin Sodium Potassium Chloride Carbon Dioxide BUN Creatinine Glucose POC Glucose 252 H 152 H 181 H Lactic Acid Calcium AST ALT Alkaline Phosphatase CK-MB (CK-2) CK-MB (CK-2) Rel Index Total Protein Albumin TSH Urine WBC (Auto) Salicylates 04/05/17 04/05/17 04/05/17 14:49 17:34 21:38 WBC RBC Hgb Hct MCV MCH RDW Plt Count Lymph % (Auto) [place] % (Auto) Eos % (Auto) Seg Neutrophils % Seg Neuts % (Manual) Lymphocytes % (Manual) Seg Neutrophils # Seg Neutrophils # Man Lymphocytes # (Manual) APTT POC ABG pH ABG pH POC ABG pCO2 POC ABG pO2 ABG pO2 ABG HCO3 ABG Base Excess ABG Hemoglobin VBG pH Oxyhemoglobin Sodium Potassium Chloride Carbon Dioxide BUN Creatinine Glucose POC Glucose 219 H 268 H 278 H Lactic Acid Calcium AST ALT Alkaline Phosphatase CK-MB (CK-2) CK-MB (CK-2) Rel Index Total Protein Albumin TSH Urine WBC (Auto) Salicylates 04/06/17 04/06/17 04/07/17 15:04 22:14 05:09 WBC RBC Hgb Hct MCV MCH RDW Plt Count Lymph % (Auto) [place] % (Auto) Eos % (Auto) Seg Neutrophils % Seg Neuts % (Manual) Lymphocytes % (Manual) Seg Neutrophils # Seg Neutrophils # Man Lymphocytes # (Manual) APTT POC ABG pH ABG pH POC ABG pCO2 POC ABG pO2 ABG pO2 ABG HCO3 ABG Base Excess ABG Hemoglobin VBG pH Oxyhemoglobin Sodium Potassium Chloride Carbon Dioxide BUN Creatinine Glucose POC Glucose 285 H 106 H 334 H Lactic Acid Calcium AST ALT Alkaline Phosphatase CK-MB (CK-2) CK-MB (CK-2) Rel Index Total Protein Albumin TSH Urine WBC (Auto) Salicylates 04/07/17 04/07/17 04/08/17 14:45 21:48 05:28 WBC RBC Hgb Hct MCV MCH RDW Plt Count Lymph % (Auto) [place] % (Auto) Eos % (Auto) Seg Neutrophils % Seg Neuts % (Manual) Lymphocytes % (Manual) Seg Neutrophils # Seg Neutrophils # Man Lymphocytes # (Manual) APTT POC ABG pH ABG pH POC ABG pCO2 POC ABG pO2 ABG pO2 ABG HCO3 ABG Base Excess ABG Hemoglobin VBG pH Oxyhemoglobin Sodium Potassium Chloride Carbon Dioxide BUN Creatinine Glucose POC Glucose 173 H 304 H 314 H Lactic Acid Calcium AST ALT Alkaline Phosphatase CK-MB (CK-2) CK-MB (CK-2) Rel Index Total Protein Albumin TSH Urine WBC (Auto) Salicylates 04/08/17 04/08/17 04/08/17 15:57 16:17 22:21 WBC RBC Hgb Hct MCV MCH RDW Plt Count Lymph % (Auto) [place] % (Auto) Eos % (Auto) Seg Neutrophils % Seg Neuts % (Manual) Lymphocytes % (Manual) Seg Neutrophils # Seg Neutrophils # Man Lymphocytes # (Manual) APTT POC ABG pH ABG pH POC ABG pCO2 POC ABG pO2 ABG pO2 ABG HCO3 ABG Base Excess ABG Hemoglobin VBG pH Oxyhemoglobin Sodium Potassium Chloride Carbon Dioxide BUN Creatinine Glucose POC Glucose 356 H 337 H 323 H Lactic Acid Calcium AST ALT Alkaline Phosphatase CK-MB (CK-2) CK-MB (CK-2) Rel Index Total Protein Albumin TSH Urine WBC (Auto) Salicylates 04/09/17 06:19 WBC RBC Hgb Hct MCV MCH RDW Plt Count Lymph % (Auto) [place] % (Auto) Eos % (Auto) Seg Neutrophils % Seg Neuts % (Manual) Lymphocytes % (Manual) Seg Neutrophils # Seg Neutrophils # Man Lymphocytes # (Manual) APTT POC ABG pH ABG pH POC ABG pCO2 POC ABG pO2 ABG pO2 ABG HCO3 ABG Base Excess ABG Hemoglobin VBG pH Oxyhemoglobin Sodium Potassium Chloride Carbon Dioxide BUN Creatinine Glucose POC Glucose 340 H Lactic Acid Calcium AST ALT Alkaline Phosphatase CK-MB (CK-2) CK-MB (CK-2) Rel Index Total Protein Albumin TSH Urine WBC (Auto) Salicylates
[2017-04-10] MEDS: SYNTHROID PO SCH (05:00)
[2017-04-10] MEDS: HumuLIN R SUB-Q SCH ×3 (05:46→21:50)
[2017-04-10] MEDS: HEPARIN SUB-Q SCH ×2 (10:58→21:48)
[2017-04-10] MEDS: PEPCID PO SCH ×2 (10:58→21:48)
--- NOTE | 2017-04-10 12:03 | Progress Note ---
Assessment and Plan acute respiratory failure secondary to metabolic event, prolonged vent support Hypoglycemia/hypothermia -> suspect due to too much insulin Hypothyroidism; doubt myxedema coma with normal free T4 UTI/SIRS Metabolic encephalopathy. Residual vegetative state Rec: Same vent support Continue minimizing, avoid lab samplying if no change GI/DVT PPx/TFs Per chart/notes; ethics note 01/18/17 recommended AND and "hospice"; trying to get guardianship to sign necessary orders for this (however, I was told they are not willing to sign for withdrawal of ventilator); further care felt to be futile and would only prolong potential suffering without affecting ultimate outcome Comfort care, no escalation of care. Poor prognosis,unchanged status Unable to locate family. Subjective Date of service: 04/10/17 Principal diagnosis: Acute respiratory failure,encephalopathy Interval history: No change ,intubated. Objective Vital Signs - 12hr 04/10/17 04/10/17 04/10/17 00:14 02:01 04:01 Temperature 98.0 F Pulse Rate 89 89 Respiratory 15 14 Rate Blood Pressure 134/82 134/82 O2 Sat by Pulse 99 99 Oximetry 04/10/17 04/10/17 04/10/17 04:08 04:15 06:01 Temperature 98.2 F Pulse Rate 90 86 Respiratory 17 Rate Blood Pressure 134/82 134/82 O2 Sat by Pulse 99 100 Oximetry 04/10/17 04/10/17 04/10/17 08:23 09:30 09:38 Temperature Pulse Rate 88 84 Respiratory 21 Rate Blood Pressure 126/82 130/78 O2 Sat by Pulse 98 99 100 Oximetry 04/10/17 10:00 Temperature Pulse Rate 85 Respiratory Rate Blood Pressure O2 Sat by Pulse Oximetry Constitutional: no acute distress, comatose Eyes: non-icteric ENT: oropharynx moist, other (ETT in position) Neck: supple, no JVD Effort: normal Ascultation: Bilateral: clear, diminished breath sounds Cardiovascular: regular rate and rhythm (no mrg) Gastrointestinal: normoactive bowel sounds, soft, non-tender, non-distended Integumentary: normal Extremities: no cyanosis, no edema, pink and warm Neurologic: pupils equal and round, other (minimal responsive,no posturing, ) Psychiatric: other (unable to obtain) CBC and BMP: 03/29/17 04:32 03/29/17 04:32 ABG, PT/INR, D-dimer: ABG POC ABG pH 7.442 (7.35-7.45) 01/31/17 18:55 ABG pH 7.420 pH Units (7.350-7.450) 01/17/17 04:35 POC ABG pCO2 32.8 (35-45) L 01/31/17 18:55 ABG pCO2 34.5 mm Hg 01/17/17 04:35 POC ABG pO2 82 (80-105) 01/31/17 18:55 ABG pO2 160.3 mm Hg (80.0-90.0) H 01/17/17 04:35 POC ABG HCO3 22.4 01/31/17 18:55 POC ABG Total CO2 23 01/31/17 18:55 POC ABG O2 Sat 97 01/31/17 18:55 ABG O2 Saturation 99.0 % (95.0-99.0) 01/17/17 04:35 PT/INR, D-dimer PT 14.1 Sec. (12.2-14.9) 01/17/17 04:10 INR 1.04 (0.87-1.13) 01/17/17 04:10 Abnormal lab findings: Abnormal Labs 01/09/17 01/09/17 01/09/17 10:16 10:16 10:16 WBC RBC Hgb 9.7 L Hct 28.4 L MCV 76 L MCH 26 L RDW 17.2 H Plt Count 448 H Lymph % (Auto) [place] % (Auto) Eos % (Auto) Seg Neutrophils % 79.5 H Seg Neuts % (Manual) Lymphocytes % (Manual) Seg Neutrophils # Seg Neutrophils # Man Lymphocytes # (Manual) APTT 39.6 H POC ABG pH ABG pH POC ABG pCO2 POC ABG pO2 ABG pO2 ABG HCO3 ABG Base Excess ABG Hemoglobin VBG pH Oxyhemoglobin Sodium 132 L Potassium Chloride 96.7 L Carbon Dioxide 21 L BUN 34 H Creatinine Glucose POC Glucose Lactic Acid Calcium 8.3 L AST ALT Alkaline Phosphatase 151 H CK-MB (CK-2) 7.1 H CK-MB (CK-2) Rel Index 5.2 H Total Protein Albumin 3.3 L TSH Urine WBC (Auto) Salicylates 01/09/17 01/09/17 01/09/17 10:16 10:16 10:16 WBC RBC Hgb Hct MCV MCH RDW Plt Count Lymph % (Auto) [place] % (Auto) Eos % (Auto) Seg Neutrophils % Seg Neuts % (Manual) Lymphocytes % (Manual) Seg Neutrophils # Seg Neutrophils # Man Lymphocytes # (Manual) APTT POC ABG pH ABG pH POC ABG pCO2 POC ABG pO2 ABG pO2 ABG HCO3 ABG Base Excess ABG Hemoglobin VBG pH 7.284 L Oxyhemoglobin Sodium Potassium Chloride Carbon Dioxide BUN Creatinine Glucose POC Glucose Lactic Acid Calcium AST ALT Alkaline Phosphatase CK-MB (CK-2) CK-MB (CK-2) Rel Index Total Protein Albumin TSH 52.800 H Urine WBC (Auto) Salicylates < 0.3 L 01/09/17 01/09/17 01/09/17 10:23 11:14 12:49 WBC RBC Hgb Hct MCV MCH RDW Plt Count Lymph % (Auto) [place] % (Auto) Eos % (Auto) Seg Neutrophils % Seg Neuts % (Manual) Lymphocytes % (Manual) Seg Neutrophils # Seg Neutrophils # Man Lymphocytes # (Manual) APTT POC ABG pH ABG pH POC ABG pCO2 POC ABG pO2 643 H ABG pO2 ABG HCO3 ABG Base Excess ABG Hemoglobin VBG pH Oxyhemoglobin Sodium Potassium Chloride Carbon Dioxide BUN Creatinine Glucose POC Glucose < 40 L Lactic Acid Calcium AST ALT Alkaline Phosphatase CK-MB (CK-2) CK-MB (CK-2) Rel Index Total Protein Albumin TSH Urine WBC (Auto) 61.0 H Salicylates 01/09/17 01/09/17 01/09/17 13:13 14:21 15:09 WBC RBC Hgb Hct MCV MCH RDW Plt Count Lymph % (Auto) [place] % (Auto) Eos % (Auto) Seg Neutrophils % Seg Neuts % (Manual) Lymphocytes % (Manual) Seg Neutrophils # Seg Neutrophils # Man Lymphocytes # (Manual) APTT POC ABG pH ABG pH POC ABG pCO2 POC ABG pO2 ABG pO2 ABG HCO3 ABG Base Excess ABG Hemoglobin VBG pH Oxyhemoglobin Sodium Potassium Chloride Carbon Dioxide BUN Creatinine Glucose POC Glucose 128 H 65 L 120 H Lactic Acid Calcium AST ALT Alkaline Phosphatase CK-MB (CK-2) CK-MB (CK-2) Rel Index Total Protein Albumin TSH Urine WBC (Auto) Salicylates 01/09/17 01/09/17 01/10/17 16:28 17:14 04:30 WBC 24.1 H RBC 3.38 L Hgb 8.5 L Hct 26.0 L MCV 77 L MCH 25 L RDW 17.9 H Plt Count 474 H Lymph % (Auto) [place] % (Auto) Eos % (Auto) Seg Neutrophils % Seg Neuts % (Manual) 88.0 H Lymphocytes % (Manual) 4.0 L Seg Neutrophils # Seg Neutrophils # Man 21.2 H Lymphocytes # (Manual) 1.0 L APTT POC ABG pH ABG pH POC ABG pCO2 POC ABG pO2 ABG pO2 ABG HCO3 ABG Base Excess ABG Hemoglobin VBG pH Oxyhemoglobin Sodium Potassium Chloride Carbon Dioxide BUN Creatinine Glucose POC Glucose 44 L 112 H Lactic Acid Calcium AST ALT Alkaline Phosphatase CK-MB (CK-2) CK-MB (CK-2) Rel Index Total Protein Albumin TSH Urine WBC (Auto) Salicylates 01/10/17 01/10/17 01/10/17 04:30 05:41 05:45 WBC RBC Hgb Hct MCV MCH RDW Plt Count Lymph % (Auto) [place] % (Auto) Eos % (Auto) Seg Neutrophils % Seg Neuts % (Manual) Lymphocytes % (Manual) Seg Neutrophils # Seg Neutrophils # Man Lymphocytes # (Manual) APTT POC ABG pH ABG pH POC ABG pCO2 26.6 L POC ABG pO2 207 H ABG pO2 ABG HCO3 ABG Base Excess ABG Hemoglobin VBG pH Oxyhemoglobin Sodium Potassium Chloride Carbon Dioxide 17 L BUN 27 H Creatinine Glucose POC Glucose 68 L Lactic Acid Calcium 7.5 L AST ALT Alkaline Phosphatase CK-MB (CK-2) CK-MB (CK-2) Rel Index Total Protein Albumin TSH Urine WBC (Auto) Salicylates 01/10/17 01/10/17 01/10/17 07:47 10:50 13:41 WBC RBC Hgb Hct MCV MCH RDW Plt Count Lymph % (Auto) [place] % (Auto) Eos % (Auto) Seg Neutrophils % Seg Neuts % (Manual) Lymphocytes % (Manual) Seg Neutrophils # Seg Neutrophils # Man Lymphocytes # (Manual) APTT POC ABG pH ABG pH POC ABG pCO2 POC ABG pO2 ABG pO2 ABG HCO3 ABG Base Excess ABG Hemoglobin VBG pH Oxyhemoglobin Sodium Potassium Chloride Carbon Dioxide BUN Creatinine Glucose POC Glucose 148 H 165 H 114 H Lactic Acid Calcium AST ALT Alkaline Phosphatase CK-MB (CK-2) CK-MB (CK-2) Rel Index Total Protein Albumin TSH Urine WBC (Auto) Salicylates 01/10/17 01/10/17 01/10/17 20:20 21:39 23:24 WBC RBC Hgb Hct MCV MCH RDW Plt Count Lymph % (Auto) [place] % (Auto) Eos % (Auto) Seg Neutrophils % Seg Neuts % (Manual) Lymphocytes % (Manual) Seg Neutrophils # Seg Neutrophils # Man Lymphocytes # (Manual) APTT POC ABG pH ABG pH POC ABG pCO2 POC ABG pO2 ABG pO2 ABG HCO3 ABG Base Excess ABG Hemoglobin VBG pH Oxyhemoglobin Sodium Potassium Chloride Carbon Dioxide BUN Creatinine Glucose POC Glucose 150 H 175 H 155 H Lactic Acid Calcium AST ALT Alkaline Phosphatase CK-MB (CK-2) CK-MB (CK-2) Rel Index Total Protein Albumin TSH Urine WBC (Auto) Salicylates 01/11/17 01/11/17 01/11/17 00:19 04:06 05:20 WBC 15.2 H RBC 3.40 L Hgb 8.9 L Hct 26.3 L MCV 78 L MCH 26 L RDW 18.6 H Plt Count 462 H Lymph % (Auto) 13.2 L [place] % (Auto) Eos % (Auto) Seg Neutrophils % 80.8 H Seg Neuts % (Manual) Lymphocytes % (Manual) Seg Neutrophils # 12.3 H Seg Neutrophils # Man Lymphocytes # (Manual) APTT POC ABG pH 7.463 H ABG pH POC ABG pCO2 26.2 L POC ABG pO2 185 H ABG pO2 ABG HCO3 ABG Base Excess ABG Hemoglobin VBG pH Oxyhemoglobin Sodium Potassium Chloride Carbon Dioxide BUN Creatinine Glucose POC Glucose 163 H Lactic Acid Calcium AST ALT Alkaline Phosphatase CK-MB (CK-2) CK-MB (CK-2) Rel Index Total Protein Albumin TSH Urine WBC (Auto) Salicylates 01/11/17 01/11/17 01/11/17 05:20 06:21 07:57 WBC RBC Hgb Hct MCV MCH RDW Plt Count Lymph % (Auto) [place] % (Auto) Eos % (Auto) Seg Neutrophils % Seg Neuts % (Manual) Lymphocytes % (Manual) Seg Neutrophils # Seg Neutrophils # Man Lymphocytes # (Manual) APTT POC ABG pH ABG pH POC ABG pCO2 POC ABG pO2 ABG pO2 ABG HCO3 ABG Base Excess ABG Hemoglobin VBG pH Oxyhemoglobin Sodium Potassium 3.4 L Chloride 111.5 H Carbon Dioxide 17 L BUN Creatinine Glucose 147 H POC Glucose 139 H 188 H Lactic Acid Calcium 8.0 L AST ALT Alkaline Phosphatase CK-MB (CK-2) CK-MB (CK-2) Rel Index Total Protein Albumin TSH Urine WBC (Auto) Salicylates 01/11/17 01/11/17 01/11/17 11:46 16:50 23:15 WBC RBC Hgb Hct MCV MCH RDW Plt Count Lymph % (Auto) [place] % (Auto) Eos % (Auto) Seg Neutrophils % Seg Neuts % (Manual) Lymphocytes % (Manual) Seg Neutrophils # Seg Neutrophils # Man Lymphocytes # (Manual) APTT POC ABG pH ABG pH POC ABG pCO2 POC ABG pO2 ABG pO2 ABG HCO3 ABG Base Excess ABG Hemoglobin VBG pH Oxyhemoglobin Sodium Potassium Chloride Carbon Dioxide BUN Creatinine Glucose POC Glucose 199 H 235 H 155 H Lactic Acid Calcium AST ALT Alkaline Phosphatase CK-MB (CK-2) CK-MB (CK-2) Rel Index Total Protein Albumin TSH Urine WBC (Auto) Salicylates 01/12/17 01/12/17 01/12/17 05:02 06:56 14:50 WBC RBC Hgb Hct MCV MCH RDW Plt Count Lymph % (Auto) [place] % (Auto) Eos % (Auto) Seg Neutrophils % Seg Neuts % (Manual) Lymphocytes % (Manual) Seg Neutrophils # Seg Neutrophils # Man Lymphocytes # (Manual) APTT POC ABG pH ABG pH POC ABG pCO2 28.0 L POC ABG pO2 178 H ABG pO2 ABG HCO3 ABG Base Excess ABG Hemoglobin VBG pH Oxyhemoglobin Sodium Potassium Chloride Carbon Dioxide BUN Creatinine Glucose POC Glucose 119 H 164 H Lactic Acid Calcium AST ALT Alkaline Phosphatase CK-MB (CK-2) CK-MB (CK-2) Rel Index Total Protein Albumin TSH Urine WBC (Auto) Salicylates 01/13/17 01/13/17 01/13/17 03:37 03:37 04:26 WBC RBC 3.61 L Hgb 9.3 L Hct 28.0 L MCV 78 L MCH 26 L RDW 18.2 H Plt Count Lymph % (Auto) [place] % (Auto) Eos % (Auto) Seg Neutrophils % Seg Neuts % (Manual) Lymphocytes % (Manual) Seg Neutrophils # Seg Neutrophils # Man Lymphocytes # (Manual) APTT POC ABG pH 7.485 H ABG pH POC ABG pCO2 25.4 L POC ABG pO2 73 L ABG pO2 ABG HCO3 ABG Base Excess ABG Hemoglobin VBG pH Oxyhemoglobin Sodium Potassium Chloride 112.4 H Carbon Dioxide 19 L BUN Creatinine Glucose 118 H POC Glucose Lactic Acid Calcium 8.0 L AST ALT Alkaline Phosphatase CK-MB (CK-2) CK-MB (CK-2) Rel Index Total Protein Albumin TSH Urine WBC (Auto) Salicylates 01/13/17 01/13/17 01/13/17 06:15 11:50 17:31 WBC RBC Hgb Hct MCV MCH RDW Plt Count Lymph % (Auto) [place] % (Auto) Eos % (Auto) Seg Neutrophils % Seg Neuts % (Manual) Lymphocytes % (Manual) Seg Neutrophils # Seg Neutrophils # Man Lymphocytes # (Manual) APTT POC ABG pH ABG pH POC ABG pCO2 POC ABG pO2 ABG pO2 ABG HCO3 ABG Base Excess ABG Hemoglobin VBG pH Oxyhemoglobin Sodium Potassium Chloride Carbon Dioxide BUN Creatinine Glucose POC Glucose 116 H 171 H 203 H Lactic Acid Calcium AST ALT Alkaline Phosphatase CK-MB (CK-2) CK-MB (CK-2) Rel Index Total Protein Albumin TSH Urine WBC (Auto) Salicylates 01/14/17 01/14/17 01/14/17 00:02 04:50 04:50 WBC RBC 3.32 L Hgb 8.5 L Hct 26.1 L MCV 79 L MCH 26 L RDW 18.2 H Plt Count Lymph % (Auto) [place] % (Auto) 9.0 H Eos % (Auto) Seg Neutrophils % Seg Neuts % (Manual) Lymphocytes % (Manual) Seg Neutrophils # Seg Neutrophils # Man Lymphocytes # (Manual) APTT POC ABG pH ABG pH POC ABG pCO2 POC ABG pO2 ABG pO2 ABG HCO3 ABG Base Excess ABG Hemoglobin VBG pH Oxyhemoglobin Sodium Potassium Chloride 112.5 H Carbon Dioxide BUN Creatinine Glucose 149 H POC Glucose 157 H Lactic Acid Calcium 8.1 L AST ALT Alkaline Phosphatase CK-MB (CK-2) CK-MB (CK-2) Rel Index Total Protein Albumin TSH Urine WBC (Auto) Salicylates 1001/14/17 01/14/17 05:10 11:27 14:07 WBC RBC Hgb Hct MCV MCH RDW Plt Count Lymph % (Auto) [place] % (Auto) Eos % (Auto) Seg Neutrophils % Seg Neuts % (Manual) Lymphocytes % (Manual) Seg Neutrophils # Seg Neutrophils # Man Lymphocytes # (Manual) APTT POC ABG pH ABG pH POC ABG pCO2 POC ABG pO2 ABG pO2 ABG HCO3 ABG Base Excess ABG Hemoglobin VBG pH Oxyhemoglobin Sodium Potassium Chloride Carbon Dioxide BUN Creatinine Glucose POC Glucose 176 H 147 H Lactic Acid Calcium AST ALT Alkaline Phosphatase CK-MB (CK-2) CK-MB (CK-2) Rel Index Total Protein Albumin TSH Urine WBC (Auto) 53.0 H Salicylates 01/14/17 01/15/17 01/15/17 16:52 00:04 05:26 WBC RBC Hgb Hct MCV MCH RDW Plt Count Lymph % (Auto) [place] % (Auto) Eos % (Auto) Seg Neutrophils % Seg Neuts % (Manual) Lymphocytes % (Manual) Seg Neutrophils # Seg Neutrophils # Man Lymphocytes # (Manual) APTT POC ABG pH ABG pH POC ABG pCO2 POC ABG pO2 ABG pO2 ABG HCO3 ABG Base Excess ABG Hemoglobin VBG pH Oxyhemoglobin Sodium Potassium Chloride Carbon Dioxide BUN Creatinine Glucose POC Glucose 131 H 193 H 215 H Lactic Acid Calcium AST ALT Alkaline Phosphatase CK-MB (CK-2) CK-MB (CK-2) Rel Index Total Protein Albumin TSH Urine WBC (Auto) Salicylates 01/15/17 01/15/17 01/15/17 11:49 17:47 21:33 WBC RBC Hgb Hct MCV MCH RDW Plt Count Lymph % (Auto) [place] % (Auto) Eos % (Auto) Seg Neutrophils % Seg Neuts % (Manual) Lymphocytes % (Manual) Seg Neutrophils # Seg Neutrophils # Man Lymphocytes # (Manual) APTT POC ABG pH ABG pH POC ABG pCO2 POC ABG pO2 ABG pO2 ABG HCO3 ABG Base Excess ABG Hemoglobin VBG pH Oxyhemoglobin Sodium Potassium Chloride Carbon Dioxide BUN Creatinine Glucose POC Glucose 121 H 211 H 275 H Lactic Acid Calcium AST ALT Alkaline Phosphatase CK-MB (CK-2) CK-MB (CK-2) Rel Index Total Protein Albumin TSH Urine WBC (Auto) Salicylates 1001/16/17 01/16/17 04:30 05:28 13:45 WBC RBC Hgb Hct MCV MCH RDW Plt Count Lymph % (Auto) [place] % (Auto) Eos % (Auto) Seg Neutrophils % Seg Neuts % (Manual) Lymphocytes % (Manual) Seg Neutrophils # Seg Neutrophils # Man Lymphocytes # (Manual) APTT POC ABG pH ABG pH 7.457 H POC ABG pCO2 POC ABG pO2 ABG pO2 55.1 L ABG HCO3 19.4 L ABG Base Excess -4.0 L ABG Hemoglobin 6.8 L VBG pH Oxyhemoglobin 94.9 L Sodium Potassium Chloride Carbon Dioxide BUN Creatinine Glucose POC Glucose 271 H 236 H Lactic Acid Calcium AST ALT Alkaline Phosphatase CK-MB (CK-2) CK-MB (CK-2) Rel Index Total Protein Albumin TSH Urine WBC (Auto) Salicylates 01/16/17 01/17/17 01/17/17 21:39 04:10 04:10 WBC 4.4 L RBC 2.98 L Hgb 7.7 L Hct 23.3 L MCV 78 L MCH 26 L RDW 18.1 H Plt Count Lymph % (Auto) [place] % (Auto) Eos % (Auto) Seg Neutrophils % Seg Neuts % (Manual) Lymphocytes % (Manual) Seg Neutrophils # Seg Neutrophils # Man Lymphocytes # (Manual) APTT POC ABG pH ABG pH POC ABG pCO2 POC ABG pO2 ABG pO2 ABG HCO3 ABG Base Excess ABG Hemoglobin VBG pH Oxyhemoglobin Sodium Potassium 3.3 L Chloride 108.7 H Carbon Dioxide 20 L BUN 8 L Creatinine Glucose 202 H POC Glucose 258 H Lactic Acid Calcium 7.6 L AST ALT Alkaline Phosphatase CK-MB (CK-2) CK-MB (CK-2) Rel Index Total Protein Albumin TSH Urine WBC (Auto) Salicylates 01/17/17 01/17/17 01/17/17 04:35 12:23 16:01 WBC RBC Hgb Hct MCV MCH RDW Plt Count Lymph % (Auto) [place] % (Auto) Eos % (Auto) Seg Neutrophils % Seg Neuts % (Manual) Lymphocytes % (Manual) Seg Neutrophils # Seg Neutrophils # Man Lymphocytes # (Manual) APTT POC ABG pH ABG pH POC ABG pCO2 POC ABG pO2 ABG pO2 160.3 H ABG HCO3 ABG Base Excess -2.3 L ABG Hemoglobin 7.9 L VBG pH Oxyhemoglobin Sodium Potassium Chloride Carbon Dioxide BUN Creatinine Glucose POC Glucose 321 H 239 H Lactic Acid Calcium AST ALT Alkaline Phosphatase CK-MB (CK-2) CK-MB (CK-2) Rel Index Total Protein Albumin TSH Urine WBC (Auto) Salicylates 01/18/17 01/18/17 01/18/17 05:07 12:09 17:54 WBC RBC Hgb Hct MCV MCH RDW Plt Count Lymph % (Auto) [place] % (Auto) Eos % (Auto) Seg Neutrophils % Seg Neuts % (Manual) Lymphocytes % (Manual) Seg Neutrophils # Seg Neutrophils # Man Lymphocytes # (Manual) APTT POC ABG pH ABG pH POC ABG pCO2 POC ABG pO2 ABG pO2 ABG HCO3 ABG Base Excess ABG Hemoglobin VBG pH Oxyhemoglobin Sodium Potassium Chloride Carbon Dioxide BUN Creatinine Glucose POC Glucose 155 H 203 H 132 H Lactic Acid Calcium AST ALT Alkaline Phosphatase CK-MB (CK-2) CK-MB (CK-2) Rel Index Total Protein Albumin TSH Urine WBC (Auto) Salicylates 01/18/17 01/19/17 01/19/17 23:43 04:28 12:11 WBC RBC Hgb Hct MCV MCH RDW Plt Count Lymph % (Auto) [place] % (Auto) Eos % (Auto) Seg Neutrophils % Seg Neuts % (Manual) Lymphocytes % (Manual) Seg Neutrophils # Seg Neutrophils # Man Lymphocytes # (Manual) APTT POC ABG pH ABG pH POC ABG pCO2 POC ABG pO2 ABG pO2 ABG HCO3 ABG Base Excess ABG Hemoglobin VBG pH Oxyhemoglobin Sodium Potassium Chloride Carbon Dioxide BUN Creatinine Glucose POC Glucose 125 H 182 H 153 H Lactic Acid Calcium AST ALT Alkaline Phosphatase CK-MB (CK-2) CK-MB (CK-2) Rel Index Total Protein Albumin TSH Urine WBC (Auto) Salicylates 01/19/17 01/20/17 01/20/17 17:23 00:12 05:44 WBC RBC Hgb Hct MCV MCH RDW Plt Count Lymph % (Auto) [place] % (Auto) Eos % (Auto) Seg Neutrophils % Seg Neuts % (Manual) Lymphocytes % (Manual) Seg Neutrophils # Seg Neutrophils # Man Lymphocytes # (Manual) APTT POC ABG pH ABG pH POC ABG pCO2 POC ABG pO2 ABG pO2 ABG HCO3 ABG Base Excess ABG Hemoglobin VBG pH Oxyhemoglobin Sodium Potassium Chloride Carbon Dioxide BUN Creatinine Glucose POC Glucose 66 L 139 H 176 H Lactic Acid Calcium AST ALT Alkaline Phosphatase CK-MB (CK-2) CK-MB (CK-2) Rel Index Total Protein Albumin TSH Urine WBC (Auto) Salicylates 01/20/17 01/20/17 01/20/17 11:48 17:42 23:43 WBC RBC Hgb Hct MCV MCH RDW Plt Count Lymph % (Auto) [place] % (Auto) Eos % (Auto) Seg Neutrophils % Seg Neuts % (Manual) Lymphocytes % (Manual) Seg Neutrophils # Seg Neutrophils # Man Lymphocytes # (Manual) APTT POC ABG pH ABG pH POC ABG pCO2 POC ABG pO2 ABG pO2 ABG HCO3 ABG Base Excess ABG Hemoglobin VBG pH Oxyhemoglobin Sodium Potassium Chloride Carbon Dioxide BUN Creatinine Glucose POC Glucose 218 H 132 H 178 H Lactic Acid Calcium AST ALT Alkaline Phosphatase CK-MB (CK-2) CK-MB (CK-2) Rel Index Total Protein Albumin TSH Urine WBC (Auto) Salicylates 01/21/17 01/21/17 01/21/17 05:34 11:17 23:37 WBC RBC Hgb Hct MCV MCH RDW Plt Count Lymph % (Auto) [place] % (Auto) Eos % (Auto) Seg Neutrophils % Seg Neuts % (Manual) Lymphocytes % (Manual) Seg Neutrophils # Seg Neutrophils # Man Lymphocytes # (Manual) APTT POC ABG pH ABG pH POC ABG pCO2 POC ABG pO2 ABG pO2 ABG HCO3 ABG Base Excess ABG Hemoglobin VBG pH Oxyhemoglobin Sodium Potassium Chloride Carbon Dioxide BUN Creatinine Glucose POC Glucose 106 H 213 H 140 H Lactic Acid Calcium AST ALT Alkaline Phosphatase CK-MB (CK-2) CK-MB (CK-2) Rel Index Total Protein Albumin TSH Urine WBC (Auto) Salicylates 01/22/17 01/22/17 01/22/17 04:00 04:00 04:58 WBC RBC 3.26 L Hgb 8.3 L Hct 25.5 L MCV 78 L MCH 25 L RDW 17.9 H Plt Count Lymph % (Auto) [place] % (Auto) 7.9 H Eos % (Auto) 6.2 H Seg Neutrophils % Seg Neuts % (Manual) Lymphocytes % (Manual) Seg Neutrophils # Seg Neutrophils # Man Lymphocytes # (Manual) APTT POC ABG pH ABG pH POC ABG pCO2 POC ABG pO2 ABG pO2 ABG HCO3 ABG Base Excess ABG Hemoglobin VBG pH Oxyhemoglobin Sodium Potassium Chloride 95.5 L Carbon Dioxide 31 H D BUN Creatinine Glucose 134 H POC Glucose 146 H Lactic Acid Calcium AST 44 H ALT Alkaline Phosphatase 379 H CK-MB (CK-2) CK-MB (CK-2) Rel Index Total Protein Albumin 2.7 L TSH Urine WBC (Auto) Salicylates 01/22/17 01/22/17 01/22/17 12:12 18:12 23:39 WBC RBC Hgb Hct MCV MCH RDW Plt Count Lymph % (Auto) [place] % (Auto) Eos % (Auto) Seg Neutrophils % Seg Neuts % (Manual) Lymphocytes % (Manual) Seg Neutrophils # Seg Neutrophils # Man Lymphocytes # (Manual) APTT POC ABG pH ABG pH POC ABG pCO2 POC ABG pO2 ABG pO2 ABG HCO3 ABG Base Excess ABG Hemoglobin VBG pH Oxyhemoglobin Sodium Potassium Chloride Carbon Dioxide BUN Creatinine Glucose POC Glucose 255 H 182 H 134 H Lactic Acid Calcium AST ALT Alkaline Phosphatase CK-MB (CK-2) CK-MB (CK-2) Rel Index Total Protein Albumin TSH Urine WBC (Auto) Salicylates 01/23/17 01/23/17 01/23/17 04:43 12:12 17:36 WBC RBC Hgb Hct MCV MCH RDW Plt Count Lymph % (Auto) [place] % (Auto) Eos % (Auto) Seg Neutrophils % Seg Neuts % (Manual) Lymphocytes % (Manual) Seg Neutrophils # Seg Neutrophils # Man Lymphocytes # (Manual) APTT POC ABG pH ABG pH POC ABG pCO2 POC ABG pO2 ABG pO2 ABG HCO3 ABG Base Excess ABG Hemoglobin VBG pH Oxyhemoglobin Sodium Potassium Chloride Carbon Dioxide BUN Creatinine Glucose POC Glucose 218 H 128 H 156 H Lactic Acid Calcium AST ALT Alkaline Phosphatase CK-MB (CK-2) CK-MB (CK-2) Rel Index Total Protein Albumin TSH Urine WBC (Auto) Salicylates 01/24/17 01/24/17 01/24/17 00:08 05:16 11:40 WBC RBC Hgb Hct MCV MCH RDW Plt Count Lymph % (Auto) [place] % (Auto) Eos % (Auto) Seg Neutrophils % Seg Neuts % (Manual) Lymphocytes % (Manual) Seg Neutrophils # Seg Neutrophils # Man Lymphocytes # (Manual) APTT POC ABG pH ABG pH POC ABG pCO2 POC ABG pO2 ABG pO2 ABG HCO3 ABG Base Excess ABG Hemoglobin VBG pH Oxyhemoglobin Sodium Potassium Chloride Carbon Dioxide BUN Creatinine Glucose POC Glucose 129 H 169 H 187 H Lactic Acid Calcium AST ALT Alkaline Phosphatase CK-MB (CK-2) CK-MB (CK-2) Rel Index Total Protein Albumin TSH Urine WBC (Auto) Salicylates 01/24/17 01/24/17 01/25/17 17:43 23:23 04:56 WBC RBC Hgb Hct MCV MCH RDW Plt Count Lymph % (Auto) [place] % (Auto) Eos % (Auto) Seg Neutrophils % Seg Neuts % (Manual) Lymphocytes % (Manual) Seg Neutrophils # Seg Neutrophils # Man Lymphocytes # (Manual) APTT POC ABG pH ABG pH POC ABG pCO2 POC ABG pO2 ABG pO2 ABG HCO3 ABG Base Excess ABG Hemoglobin VBG pH Oxyhemoglobin Sodium Potassium Chloride Carbon Dioxide BUN Creatinine Glucose POC Glucose 215 H 222 H 210 H Lactic Acid Calcium AST ALT Alkaline Phosphatase CK-MB (CK-2) CK-MB (CK-2) Rel Index Total Protein Albumin TSH Urine WBC (Auto) Salicylates 01/25/17 01/25/17 01/26/17 11:52 17:37 00:02 WBC RBC Hgb Hct MCV MCH RDW Plt Count Lymph % (Auto) [place] % (Auto) Eos % (Auto) Seg Neutrophils % Seg Neuts % (Manual) Lymphocytes % (Manual) Seg Neutrophils # Seg Neutrophils # Man Lymphocytes # (Manual) APTT POC ABG pH ABG pH POC ABG pCO2 POC ABG pO2 ABG pO2 ABG HCO3 ABG Base Excess ABG Hemoglobin VBG pH Oxyhemoglobin Sodium Potassium Chloride Carbon Dioxide BUN Creatinine Glucose POC Glucose 284 H 218 H 192 H Lactic Acid Calcium AST ALT Alkaline Phosphatase CK-MB (CK-2) CK-MB (CK-2) Rel Index Total Protein Albumin TSH Urine WBC (Auto) Salicylates 01/26/17 01/26/17 01/26/17 05:33 12:17 17:50 WBC RBC Hgb Hct MCV MCH RDW Plt Count Lymph % (Auto) [place] % (Auto) Eos % (Auto) Seg Neutrophils % Seg Neuts % (Manual) Lymphocytes % (Manual) Seg Neutrophils # Seg Neutrophils # Man Lymphocytes # (Manual) APTT POC ABG pH ABG pH POC ABG pCO2 POC ABG pO2 ABG pO2 ABG HCO3 ABG Base Excess ABG Hemoglobin VBG pH Oxyhemoglobin Sodium Potassium Chloride Carbon Dioxide BUN Creatinine Glucose POC Glucose 199 H 227 H 229 H Lactic Acid Calcium AST ALT Alkaline Phosphatase CK-MB (CK-2) CK-MB (CK-2) Rel Index Total Protein Albumin TSH Urine WBC (Auto) Salicylates 01/26/17 01/27/17 01/27/17 23:57 05:31 11:42 WBC RBC Hgb Hct MCV MCH RDW Plt Count Lymph % (Auto) [place] % (Auto) Eos % (Auto) Seg Neutrophils % Seg Neuts % (Manual) Lymphocytes % (Manual) Seg Neutrophils # Seg Neutrophils # Man Lymphocytes # (Manual) APTT POC ABG pH ABG pH POC ABG pCO2 POC ABG pO2 ABG pO2 ABG HCO3 ABG Base Excess ABG Hemoglobin VBG pH Oxyhemoglobin Sodium Potassium Chloride Carbon Dioxide BUN Creatinine Glucose POC Glucose 186 H 285 H 260 H Lactic Acid Calcium AST ALT Alkaline Phosphatase CK-MB (CK-2) CK-MB (CK-2) Rel Index Total Protein Albumin TSH Urine WBC (Auto) Salicylates 01/27/17 01/27/17 01/27/17 17:47 23:58 Unknown WBC 12.1 H RBC 3.28 L Hgb 8.5 L Hct 25.5 L MCV 78 L MCH 26 L RDW 16.8 H Plt Count 601 H Lymph % (Auto) [place] % (Auto) Eos % (Auto) Seg Neutrophils % Seg Neuts % (Manual) Lymphocytes % (Manual) Seg Neutrophils # Seg Neutrophils # Man Lymphocytes # (Manual) APTT POC ABG pH ABG pH POC ABG pCO2 POC ABG pO2 ABG pO2 ABG HCO3 ABG Base Excess ABG Hemoglobin VBG pH Oxyhemoglobin Sodium Potassium Chloride Carbon Dioxide BUN Creatinine Glucose POC Glucose 329 H 225 H Lactic Acid Calcium AST ALT Alkaline Phosphatase CK-MB (CK-2) CK-MB (CK-2) Rel Index Total Protein Albumin TSH Urine WBC (Auto) Salicylates 01/27/17 01/28/17 01/28/17 Unknown 03:44 03:44 WBC RBC 3.14 L Hgb 8.2 L Hct 24.1 L MCV 77 L MCH 26 L RDW 16.9 H Plt Count 567 H Lymph % (Auto) [place] % (Auto) Eos % (Auto) Seg Neutrophils % Seg Neuts % (Manual) Lymphocytes % (Manual) Seg Neutrophils # Seg Neutrophils # Man Lymphocytes # (Manual) APTT POC ABG pH ABG pH POC ABG pCO2 POC ABG pO2 ABG pO2 ABG HCO3 ABG Base Excess ABG Hemoglobin VBG pH Oxyhemoglobin Sodium 128 L Potassium 5.4 H Chloride 87.5 L Carbon Dioxide BUN 44 H 42 H Creatinine Glucose 250 H 128 H POC Glucose Lactic Acid Calcium AST ALT Alkaline Phosphatase CK-MB (CK-2) CK-MB (CK-2) Rel Index Total Protein Albumin TSH Urine WBC (Auto) Salicylates 01/28/17 01/28/17 01/28/17 11:43 16:47 17:52 WBC RBC Hgb Hct MCV MCH RDW Plt Count Lymph % (Auto) [place] % (Auto) Eos % (Auto) Seg Neutrophils % Seg Neuts % (Manual) Lymphocytes % (Manual) Seg Neutrophils # Seg Neutrophils # Man Lymphocytes # (Manual) APTT POC ABG pH ABG pH POC ABG pCO2 POC ABG pO2 ABG pO2 ABG HCO3 ABG Base Excess ABG Hemoglobin VBG pH Oxyhemoglobin Sodium Potassium Chloride Carbon Dioxide BUN Creatinine Glucose POC Glucose 351 H 249 H Lactic Acid Calcium AST ALT Alkaline Phosphatase CK-MB (CK-2) CK-MB (CK-2) Rel Index Total Protein Albumin TSH Urine WBC (Auto) > 182.0 H Salicylates 01/29/17 01/29/17 01/29/17 05:25 05:25 09:32 WBC 13.6 H RBC 3.25 L Hgb 8.3 L Hct 25.1 L MCV 77 L MCH 26 L RDW 16.8 H Plt Count 514 H Lymph % (Auto) [place] % (Auto) Eos % (Auto) Seg Neutrophils % Seg Neuts % (Manual) Lymphocytes % (Manual) Seg Neutrophils # Seg Neutrophils # Man Lymphocytes # (Manual) APTT POC ABG pH ABG pH POC ABG pCO2 POC ABG pO2 ABG pO2 ABG HCO3 ABG Base Excess ABG Hemoglobin VBG pH Oxyhemoglobin Sodium Potassium Chloride 97.8 L Carbon Dioxide BUN 34 H Creatinine Glucose 222 H POC Glucose Lactic Acid 2.50 H* Calcium AST ALT Alkaline Phosphatase CK-MB (CK-2) CK-MB (CK-2) Rel Index Total Protein Albumin TSH Urine WBC (Auto) Salicylates 01/29/17 01/29/17 01/29/17 11:56 18:11 23:55 WBC RBC Hgb Hct MCV MCH RDW Plt Count Lymph % (Auto) [place] % (Auto) Eos % (Auto) Seg Neutrophils % Seg Neuts % (Manual) Lymphocytes % (Manual) Seg Neutrophils # Seg Neutrophils # Man Lymphocytes # (Manual) APTT POC ABG pH ABG pH POC ABG pCO2 POC ABG pO2 ABG pO2 ABG HCO3 ABG Base Excess ABG Hemoglobin VBG pH Oxyhemoglobin Sodium Potassium Chloride Carbon Dioxide BUN Creatinine Glucose POC Glucose 261 H 215 H 176 H Lactic Acid Calcium AST ALT Alkaline Phosphatase CK-MB (CK-2) CK-MB (CK-2) Rel Index Total Protein Albumin TSH Urine WBC (Auto) Salicylates 01/30/17 01/30/17 01/30/17 05:31 05:31 05:34 WBC 15.2 H RBC 3.09 L Hgb 7.9 L Hct 23.9 L MCV 77 L MCH 26 L RDW 16.9 H Plt Count 569 H Lymph % (Auto) [place] % (Auto) Eos % (Auto) Seg Neutrophils % Seg Neuts % (Manual) Lymphocytes % (Manual) Seg Neutrophils # Seg Neutrophils # Man Lymphocytes # (Manual) APTT POC ABG pH ABG pH POC ABG pCO2 POC ABG pO2 ABG pO2 ABG HCO3 ABG Base Excess ABG Hemoglobin VBG pH Oxyhemoglobin Sodium Potassium Chloride Carbon Dioxide BUN 24 H Creatinine Glucose 235 H POC Glucose 243 H Lactic Acid Calcium AST ALT Alkaline Phosphatase CK-MB (CK-2) CK-MB (CK-2) Rel Index Total Protein Albumin TSH Urine WBC (Auto) Salicylates 01/30/17 01/30/17 01/30/17 11:38 17:58 23:29 WBC RBC Hgb Hct MCV MCH RDW Plt Count Lymph % (Auto) [place] % (Auto) Eos % (Auto) Seg Neutrophils % Seg Neuts % (Manual) Lymphocytes % (Manual) Seg Neutrophils # Seg Neutrophils # Man Lymphocytes # (Manual) APTT POC ABG pH ABG pH POC ABG pCO2 POC ABG pO2 ABG pO2 ABG HCO3 ABG Base Excess ABG Hemoglobin VBG pH Oxyhemoglobin Sodium Potassium Chloride Carbon Dioxide BUN Creatinine Glucose POC Glucose 298 H 208 H 245 H Lactic Acid Calcium AST ALT Alkaline Phosphatase CK-MB (CK-2) CK-MB (CK-2) Rel Index Total Protein Albumin TSH Urine WBC (Auto) Salicylates 01/31/17 01/31/17 01/31/17 04:39 04:39 05:57 WBC 11.4 H RBC 3.22 L Hgb 8.2 L Hct 24.9 L MCV 78 L MCH 25 L RDW 17.2 H Plt Count 576 H Lymph % (Auto) [place] % (Auto) Eos % (Auto) Seg Neutrophils % Seg Neuts % (Manual) Lymphocytes % (Manual) Seg Neutrophils # Seg Neutrophils # Man Lymphocytes # (Manual) APTT POC ABG pH ABG pH POC ABG pCO2 POC ABG pO2 ABG pO2 ABG HCO3 ABG Base Excess ABG Hemoglobin VBG pH Oxyhemoglobin Sodium Potassium Chloride Carbon Dioxide BUN Creatinine 0.7 L Glucose 223 H POC Glucose 264 H Lactic Acid Calcium AST ALT Alkaline Phosphatase CK-MB (CK-2) CK-MB (CK-2) Rel Index Total Protein Albumin TSH Urine WBC (Auto) Salicylates 01/31/17 01/31/17 01/31/17 12:23 17:41 18:55 WBC RBC Hgb Hct MCV MCH RDW Plt Count Lymph % (Auto) [place] % (Auto) Eos % (Auto) Seg Neutrophils % Seg Neuts % (Manual) Lymphocytes % (Manual) Seg Neutrophils # Seg Neutrophils # Man Lymphocytes # (Manual) APTT POC ABG pH ABG pH POC ABG pCO2 32.8 L POC ABG pO2 ABG pO2 ABG HCO3 ABG Base Excess ABG Hemoglobin VBG pH Oxyhemoglobin Sodium Potassium Chloride Carbon Dioxide BUN Creatinine Glucose POC Glucose 252 H 208 H Lactic Acid Calcium AST ALT Alkaline Phosphatase CK-MB (CK-2) CK-MB (CK-2) Rel Index Total Protein Albumin TSH Urine WBC (Auto) Salicylates 01/31/17 02/01/17 02/01/17 22:59 03:38 03:38 WBC RBC 2.81 L Hgb 7.4 L Hct 22.1 L MCV 79 L MCH 27 L RDW 17.0 H Plt Count 540 H Lymph % (Auto) [place] % (Auto) Eos % (Auto) Seg Neutrophils % Seg Neuts % (Manual) Lymphocytes % (Manual) Seg Neutrophils # Seg Neutrophils # Man Lymphocytes # (Manual) APTT POC ABG pH ABG pH POC ABG pCO2 POC ABG pO2 ABG pO2 ABG HCO3 ABG Base Excess ABG Hemoglobin VBG pH Oxyhemoglobin Sodium Potassium Chloride Carbon Dioxide 21 L BUN Creatinine 0.7 L Glucose POC Glucose 40 L Lactic Acid Calcium AST ALT Alkaline Phosphatase CK-MB (CK-2) CK-MB (CK-2) Rel Index Total Protein Albumin TSH Urine WBC (Auto) Salicylates 02/01/17 02/01/17 02/01/17 05:17 12:19 16:44 WBC RBC Hgb Hct MCV MCH RDW Plt Count Lymph % (Auto) [place] % (Auto) Eos % (Auto) Seg Neutrophils % Seg Neuts % (Manual) Lymphocytes % (Manual) Seg Neutrophils # Seg Neutrophils # Man Lymphocytes # (Manual) APTT POC ABG pH ABG pH POC ABG pCO2 POC ABG pO2 ABG pO2 ABG HCO3 ABG Base Excess ABG Hemoglobin VBG pH Oxyhemoglobin Sodium Potassium Chloride Carbon Dioxide BUN Creatinine Glucose POC Glucose 140 H 213 H 172 H Lactic Acid Calcium AST ALT Alkaline Phosphatase CK-MB (CK-2) CK-MB (CK-2) Rel Index Total Protein Albumin TSH Urine WBC (Auto) Salicylates 02/01/17 02/02/17 02/02/17 23:59 05:14 11:24 WBC RBC Hgb Hct MCV MCH RDW Plt Count Lymph % (Auto) [place] % (Auto) Eos % (Auto) Seg Neutrophils % Seg Neuts % (Manual) Lymphocytes % (Manual) Seg Neutrophils # Seg Neutrophils # Man Lymphocytes # (Manual) APTT POC ABG pH ABG pH POC ABG pCO2 POC ABG pO2 ABG pO2 ABG HCO3 ABG Base Excess ABG Hemoglobin VBG pH Oxyhemoglobin Sodium Potassium Chloride Carbon Dioxide BUN Creatinine Glucose POC Glucose 181 H 194 H 209 H Lactic Acid Calcium AST ALT Alkaline Phosphatase CK-MB (CK-2) CK-MB (CK-2) Rel Index Total Protein Albumin TSH Urine WBC (Auto) Salicylates 02/02/17 02/02/17 02/02/17 11:46 11:46 17:47 WBC RBC 2.94 L Hgb 7.5 L Hct 23.0 L MCV 78 L MCH 25 L RDW 16.9 H Plt Count 520 H Lymph % (Auto) [place] % (Auto) Eos % (Auto) Seg Neutrophils % Seg Neuts % (Manual) Lymphocytes % (Manual) Seg Neutrophils # Seg Neutrophils # Man Lymphocytes # (Manual) APTT POC ABG pH ABG pH POC ABG pCO2 POC ABG pO2 ABG pO2 ABG HCO3 ABG Base Excess ABG Hemoglobin VBG pH Oxyhemoglobin Sodium Potassium Chloride Carbon Dioxide BUN Creatinine 0.6 L Glucose 189 H POC Glucose 147 H Lactic Acid Calcium 8.1 L AST ALT Alkaline Phosphatase CK-MB (CK-2) CK-MB (CK-2) Rel Index Total Protein Albumin TSH Urine WBC (Auto) Salicylates 02/02/17 02/03/17 02/03/17 23:32 05:53 11:19 WBC RBC Hgb Hct MCV MCH RDW Plt Count Lymph % (Auto) [place] % (Auto) Eos % (Auto) Seg Neutrophils % Seg Neuts % (Manual) Lymphocytes % (Manual) Seg Neutrophils # Seg Neutrophils # Man Lymphocytes # (Manual) APTT POC ABG pH ABG pH POC ABG pCO2 POC ABG pO2 ABG pO2 ABG HCO3 ABG Base Excess ABG Hemoglobin VBG pH Oxyhemoglobin Sodium Potassium Chloride Carbon Dioxide BUN Creatinine Glucose POC Glucose 176 H 224 H 228 H Lactic Acid Calcium AST ALT Alkaline Phosphatase CK-MB (CK-2) CK-MB (CK-2) Rel Index Total Protein Albumin TSH Urine WBC (Auto) Salicylates 02/03/17 02/03/17 02/04/17 16:59 23:38 05:45 WBC RBC Hgb Hct MCV MCH RDW Plt Count Lymph % (Auto) [place] % (Auto) Eos % (Auto) Seg Neutrophils % Seg Neuts % (Manual) Lymphocytes % (Manual) Seg Neutrophils # Seg Neutrophils # Man Lymphocytes # (Manual) APTT POC ABG pH ABG pH POC ABG pCO2 POC ABG pO2 ABG pO2 ABG HCO3 ABG Base Excess ABG Hemoglobin VBG pH Oxyhemoglobin Sodium Potassium Chloride Carbon Dioxide BUN Creatinine Glucose POC Glucose 189 H 191 H 251 H Lactic Acid Calcium AST ALT Alkaline Phosphatase CK-MB (CK-2) CK-MB (CK-2) Rel Index Total Protein Albumin TSH Urine WBC (Auto) Salicylates 02/04/17 02/04/17 02/05/17 11:20 17:20 00:17 WBC RBC Hgb Hct MCV MCH RDW Plt Count Lymph % (Auto) [place] % (Auto) Eos % (Auto) Seg Neutrophils % Seg Neuts % (Manual) Lymphocytes % (Manual) Seg Neutrophils # Seg Neutrophils # Man Lymphocytes # (Manual) APTT POC ABG pH ABG pH POC ABG pCO2 POC ABG pO2 ABG pO2 ABG HCO3 ABG Base Excess ABG Hemoglobin VBG pH Oxyhemoglobin Sodium Potassium Chloride Carbon Dioxide BUN Creatinine Glucose POC Glucose 243 H 163 H 200 H Lactic Acid Calcium AST ALT Alkaline Phosphatase CK-MB (CK-2) CK-MB (CK-2) Rel Index Total Protein Albumin TSH Urine WBC (Auto) Salicylates 02/05/17 02/05/17 02/05/17 05:38 12:38 16:29 WBC RBC Hgb Hct MCV MCH RDW Plt Count Lymph % (Auto) [place] % (Auto) Eos % (Auto) Seg Neutrophils % Seg Neuts % (Manual) Lymphocytes % (Manual) Seg Neutrophils # Seg Neutrophils # Man Lymphocytes # (Manual) APTT POC ABG pH ABG pH POC ABG pCO2 POC ABG pO2 ABG pO2 ABG HCO3 ABG Base Excess ABG Hemoglobin VBG pH Oxyhemoglobin Sodium Potassium Chloride Carbon Dioxide BUN Creatinine Glucose POC Glucose 248 H 241 H 257 H Lactic Acid Calcium AST ALT Alkaline Phosphatase CK-MB (CK-2) CK-MB (CK-2) Rel Index Total Protein Albumin TSH Urine WBC (Auto) Salicylates 02/05/17 02/06/17 02/06/17 23:56 05:30 11:50 WBC RBC Hgb Hct MCV MCH RDW Plt Count Lymph % (Auto) [place] % (Auto) Eos % (Auto) Seg Neutrophils % Seg Neuts % (Manual) Lymphocytes % (Manual) Seg Neutrophils # Seg Neutrophils # Man Lymphocytes # (Manual) APTT POC ABG pH ABG pH POC ABG pCO2 POC ABG pO2 ABG pO2 ABG HCO3 ABG Base Excess ABG Hemoglobin VBG pH Oxyhemoglobin Sodium Potassium Chloride Carbon Dioxide BUN Creatinine Glucose POC Glucose 258 H 120 H 254 H Lactic Acid Calcium AST ALT Alkaline Phosphatase CK-MB (CK-2) CK-MB (CK-2) Rel Index Total Protein Albumin TSH Urine WBC (Auto) Salicylates 02/06/17 02/06/17 02/07/17 17:11 23:50 05:22 WBC RBC Hgb Hct MCV MCH RDW Plt Count Lymph % (Auto) [place] % (Auto) Eos % (Auto) Seg Neutrophils % Seg Neuts % (Manual) Lymphocytes % (Manual) Seg Neutrophils # Seg Neutrophils # Man Lymphocytes # (Manual) APTT POC ABG pH ABG pH POC ABG pCO2 POC ABG pO2 ABG pO2 ABG HCO3 ABG Base Excess ABG Hemoglobin VBG pH Oxyhemoglobin Sodium Potassium Chloride Carbon Dioxide BUN Creatinine Glucose POC Glucose 149 H 240 H 258 H Lactic Acid Calcium AST ALT Alkaline Phosphatase CK-MB (CK-2) CK-MB (CK-2) Rel Index Total Protein Albumin TSH Urine WBC (Auto) Salicylates 02/07/17 02/07/17 02/07/17 11:15 18:33 23:59 WBC RBC Hgb Hct MCV MCH RDW Plt Count Lymph % (Auto) [place] % (Auto) Eos % (Auto) Seg Neutrophils % Seg Neuts % (Manual) Lymphocytes % (Manual) Seg Neutrophils # Seg Neutrophils # Man Lymphocytes # (Manual) APTT POC ABG pH ABG pH POC ABG pCO2 POC ABG pO2 ABG pO2 ABG HCO3 ABG Base Excess ABG Hemoglobin VBG pH Oxyhemoglobin Sodium Potassium Chloride Carbon Dioxide BUN Creatinine Glucose POC Glucose 239 H 176 H 186 H Lactic Acid Calcium AST ALT Alkaline Phosphatase CK-MB (CK-2) CK-MB (CK-2) Rel Index Total Protein Albumin TSH Urine WBC (Auto) Salicylates 02/08/17 02/08/17 02/08/17 06:15 11:55 16:55 WBC RBC Hgb Hct MCV MCH RDW Plt Count Lymph % (Auto) [place] % (Auto) Eos % (Auto) Seg Neutrophils % Seg Neuts % (Manual) Lymphocytes % (Manual) Seg Neutrophils # Seg Neutrophils # Man Lymphocytes # (Manual) APTT POC ABG pH ABG pH POC ABG pCO2 POC ABG pO2 ABG pO2 ABG HCO3 ABG Base Excess ABG Hemoglobin VBG pH Oxyhemoglobin Sodium Potassium Chloride Carbon Dioxide BUN Creatinine Glucose POC Glucose 195 H 129 H 246 H Lactic Acid Calcium AST ALT Alkaline Phosphatase CK-MB (CK-2) CK-MB (CK-2) Rel Index Total Protein Albumin TSH Urine WBC (Auto) Salicylates 02/08/17 02/09/17 02/09/17 23:51 05:51 07:24 WBC 14.7 H RBC 3.39 L Hgb 8.9 L Hct 26.4 L MCV 78 L MCH 26 L RDW 18.4 H Plt Count 670 H Lymph % (Auto) 11.8 L [place] % (Auto) Eos % (Auto) Seg Neutrophils % 81.2 H Seg Neuts % (Manual) Lymphocytes % (Manual) Seg Neutrophils # 11.9 H Seg Neutrophils # Man Lymphocytes # (Manual) APTT POC ABG pH ABG pH POC ABG pCO2 POC ABG pO2 ABG pO2 ABG HCO3 ABG Base Excess ABG Hemoglobin VBG pH Oxyhemoglobin Sodium Potassium Chloride Carbon Dioxide BUN Creatinine Glucose POC Glucose 262 H 295 H Lactic Acid Calcium AST ALT Alkaline Phosphatase CK-MB (CK-2) CK-MB (CK-2) Rel Index Total Protein Albumin TSH Urine WBC (Auto) Salicylates 02/09/17 02/09/17 02/09/17 07:24 12:08 18:39 WBC RBC Hgb Hct MCV MCH RDW Plt Count Lymph % (Auto) [place] % (Auto) Eos % (Auto) Seg Neutrophils % Seg Neuts % (Manual) Lymphocytes % (Manual) Seg Neutrophils # Seg Neutrophils # Man Lymphocytes # (Manual) APTT POC ABG pH ABG pH POC ABG pCO2 POC ABG pO2 ABG pO2 ABG HCO3 ABG Base Excess ABG Hemoglobin VBG pH Oxyhemoglobin Sodium Potassium Chloride 95.5 L Carbon Dioxide BUN 52 H Creatinine Glucose 277 H POC Glucose 236 H 151 H Lactic Acid Calcium AST ALT Alkaline Phosphatase CK-MB (CK-2) CK-MB (CK-2) Rel Index Total Protein Albumin TSH Urine WBC (Auto) Salicylates 02/10/17 02/10/17 02/10/17 00:01 05:44 11:21 WBC RBC Hgb Hct MCV MCH RDW Plt Count Lymph % (Auto) [place] % (Auto) Eos % (Auto) Seg Neutrophils % Seg Neuts % (Manual) Lymphocytes % (Manual) Seg Neutrophils # Seg Neutrophils # Man Lymphocytes # (Manual) APTT POC ABG pH ABG pH POC ABG pCO2 POC ABG pO2 ABG pO2 ABG HCO3 ABG Base Excess ABG Hemoglobin VBG pH Oxyhemoglobin Sodium Potassium Chloride Carbon Dioxide BUN Creatinine Glucose POC Glucose 210 H 201 H 233 H Lactic Acid Calcium AST ALT Alkaline Phosphatase CK-MB (CK-2) CK-MB (CK-2) Rel Index Total Protein Albumin TSH Urine WBC (Auto) Salicylates 02/10/17 02/10/1717 17:29 23:56 05:24 WBC RBC Hgb Hct MCV MCH RDW Plt Count Lymph % (Auto) [place] % (Auto) Eos % (Auto) Seg Neutrophils % Seg Neuts % (Manual) Lymphocytes % (Manual) Seg Neutrophils # Seg Neutrophils # Man Lymphocytes # (Manual) APTT POC ABG pH ABG pH POC ABG pCO2 POC ABG pO2 ABG pO2 ABG HCO3 ABG Base Excess ABG Hemoglobin VBG pH Oxyhemoglobin Sodium Potassium Chloride Carbon Dioxide BUN Creatinine Glucose POC Glucose 167 H 191 H 135 H Lactic Acid Calcium AST ALT Alkaline Phosphatase CK-MB (CK-2) CK-MB (CK-2) Rel Index Total Protein Albumin TSH Urine WBC (Auto) Salicylates 02/11/17 02/11/17 02/11/17 12:25 17:03 23:59 WBC RBC Hgb Hct MCV MCH RDW Plt Count Lymph % (Auto) [place] % (Auto) Eos % (Auto) Seg Neutrophils % Seg Neuts % (Manual) Lymphocytes % (Manual) Seg Neutrophils # Seg Neutrophils # Man Lymphocytes # (Manual) APTT POC ABG pH ABG pH POC ABG pCO2 POC ABG pO2 ABG pO2 ABG HCO3 ABG Base Excess ABG Hemoglobin VBG pH Oxyhemoglobin Sodium Potassium Chloride Carbon Dioxide BUN Creatinine Glucose POC Glucose 275 H 172 H 215 H Lactic Acid Calcium AST ALT Alkaline Phosphatase CK-MB (CK-2) CK-MB (CK-2) Rel Index Total Protein Albumin TSH Urine WBC (Auto) Salicylates 02/12/17 02/12/17 02/12/17 05:39 11:33 17:55 WBC RBC Hgb Hct MCV MCH RDW Plt Count Lymph % (Auto) [place] % (Auto) Eos % (Auto) Seg Neutrophils % Seg Neuts % (Manual) Lymphocytes % (Manual) Seg Neutrophils # Seg Neutrophils # Man Lymphocytes # (Manual) APTT POC ABG pH ABG pH POC ABG pCO2 POC ABG pO2 ABG pO2 ABG HCO3 ABG Base Excess ABG Hemoglobin VBG pH Oxyhemoglobin Sodium Potassium Chloride Carbon Dioxide BUN Creatinine Glucose POC Glucose 261 H 217 H 172 H Lactic Acid Calcium AST ALT Alkaline Phosphatase CK-MB (CK-2) CK-MB (CK-2) Rel Index Total Protein Albumin TSH Urine WBC (Auto) Salicylates 02/13/17 02/13/17 02/13/17 00:25 06:46 11:26 WBC RBC Hgb Hct MCV MCH RDW Plt Count Lymph % (Auto) [place] % (Auto) Eos % (Auto) Seg Neutrophils % Seg Neuts % (Manual) Lymphocytes % (Manual) Seg Neutrophils # Seg Neutrophils # Man Lymphocytes # (Manual) APTT POC ABG pH ABG pH POC ABG pCO2 POC ABG pO2 ABG pO2 ABG HCO3 ABG Base Excess ABG Hemoglobin VBG pH Oxyhemoglobin Sodium Potassium Chloride Carbon Dioxide BUN Creatinine Glucose POC Glucose 207 H 219 H 231 H Lactic Acid Calcium AST ALT Alkaline Phosphatase CK-MB (CK-2) CK-MB (CK-2) Rel Index Total Protein Albumin TSH Urine WBC (Auto) Salicylates 02/13/17 02/13/17 02/14/17 17:12 23:44 05:44 WBC RBC Hgb Hct MCV MCH RDW Plt Count Lymph % (Auto) [place] % (Auto) Eos % (Auto) Seg Neutrophils % Seg Neuts % (Manual) Lymphocytes % (Manual) Seg Neutrophils # Seg Neutrophils # Man Lymphocytes # (Manual) APTT POC ABG pH ABG pH POC ABG pCO2 POC ABG pO2 ABG pO2 ABG HCO3 ABG Base Excess ABG Hemoglobin VBG pH Oxyhemoglobin Sodium Potassium Chloride Carbon Dioxide BUN Creatinine Glucose POC Glucose 190 H 256 H 184 H Lactic Acid Calcium AST ALT Alkaline Phosphatase CK-MB (CK-2) CK-MB (CK-2) Rel Index Total Protein Albumin TSH Urine WBC (Auto) Salicylates 02/14/17 02/14/17 02/14/17 12:21 17:57 23:18 WBC RBC Hgb Hct MCV MCH RDW Plt Count Lymph % (Auto) [place] % (Auto) Eos % (Auto) Seg Neutrophils % Seg Neuts % (Manual) Lymphocytes % (Manual) Seg Neutrophils # Seg Neutrophils # Man Lymphocytes # (Manual) APTT POC ABG pH ABG pH POC ABG pCO2 POC ABG pO2 ABG pO2 ABG HCO3 ABG Base Excess ABG Hemoglobin VBG pH Oxyhemoglobin Sodium Potassium Chloride Carbon Dioxide BUN Creatinine Glucose POC Glucose 233 H 155 H 165 H Lactic Acid Calcium AST ALT Alkaline Phosphatase CK-MB (CK-2) CK-MB (CK-2) Rel Index Total Protein Albumin TSH Urine WBC (Auto) Salicylates 02/15/17 02/15/17 02/15/17 05:33 11:45 17:20 WBC RBC Hgb Hct MCV MCH RDW Plt Count Lymph % (Auto) [place] % (Auto) Eos % (Auto) Seg Neutrophils % Seg Neuts % (Manual) Lymphocytes % (Manual) Seg Neutrophils # Seg Neutrophils # Man Lymphocytes # (Manual) APTT POC ABG pH ABG pH POC ABG pCO2 POC ABG pO2 ABG pO2 ABG HCO3 ABG Base Excess ABG Hemoglobin VBG pH Oxyhemoglobin Sodium Potassium Chloride Carbon Dioxide BUN Creatinine Glucose POC Glucose 239 H 130 H 189 H Lactic Acid Calcium AST ALT Alkaline Phosphatase CK-MB (CK-2) CK-MB (CK-2) Rel Index Total Protein Albumin TSH Urine WBC (Auto) Salicylates 02/16/17 02/16/17 02/16/17 00:14 05:09 12:31 WBC RBC Hgb Hct MCV MCH RDW Plt Count Lymph % (Auto) [place] % (Auto) Eos % (Auto) Seg Neutrophils % Seg Neuts % (Manual) Lymphocytes % (Manual) Seg Neutrophils # Seg Neutrophils # Man Lymphocytes # (Manual) APTT POC ABG pH ABG pH POC ABG pCO2 POC ABG pO2 ABG pO2 ABG HCO3 ABG Base Excess ABG Hemoglobin VBG pH Oxyhemoglobin Sodium Potassium Chloride Carbon Dioxide BUN Creatinine Glucose POC Glucose 197 H 226 H 178 H Lactic Acid Calcium AST ALT Alkaline Phosphatase CK-MB (CK-2) CK-MB (CK-2) Rel Index Total Protein Albumin TSH Urine WBC (Auto) Salicylates 02/16/17 02/16/17 02/17/17 16:35 23:49 05:37 WBC RBC Hgb Hct MCV MCH RDW Plt Count Lymph % (Auto) [place] % (Auto) Eos % (Auto) Seg Neutrophils % Seg Neuts % (Manual) Lymphocytes % (Manual) Seg Neutrophils # Seg Neutrophils # Man Lymphocytes # (Manual) APTT POC ABG pH ABG pH POC ABG pCO2 POC ABG pO2 ABG pO2 ABG HCO3 ABG Base Excess ABG Hemoglobin VBG pH Oxyhemoglobin Sodium Potassium Chloride Carbon Dioxide BUN Creatinine Glucose POC Glucose 174 H 62 L 153 H Lactic Acid Calcium AST ALT Alkaline Phosphatase CK-MB (CK-2) CK-MB (CK-2) Rel Index Total Protein Albumin TSH Urine WBC (Auto) Salicylates 02/17/17 02/17/17 02/17/17 11:39 17:02 22:24 WBC RBC Hgb Hct MCV MCH RDW Plt Count Lymph % (Auto) [place] % (Auto) Eos % (Auto) Seg Neutrophils % Seg Neuts % (Manual) Lymphocytes % (Manual) Seg Neutrophils # Seg Neutrophils # Man Lymphocytes # (Manual) APTT POC ABG pH ABG pH POC ABG pCO2 POC ABG pO2 ABG pO2 ABG HCO3 ABG Base Excess ABG Hemoglobin VBG pH Oxyhemoglobin Sodium Potassium Chloride Carbon Dioxide BUN Creatinine Glucose POC Glucose 231 H 112 H 116 H Lactic Acid Calcium AST ALT Alkaline Phosphatase CK-MB (CK-2) CK-MB (CK-2) Rel Index Total Protein Albumin TSH Urine WBC (Auto) Salicylates 02/18/17 02/19/17 02/19/17 15:34 05:09 07:57 WBC RBC Hgb Hct MCV MCH RDW Plt Count Lymph % (Auto) [place] % (Auto) Eos % (Auto) Seg Neutrophils % Seg Neuts % (Manual) Lymphocytes % (Manual) Seg Neutrophils # Seg Neutrophils # Man Lymphocytes # (Manual) APTT POC ABG pH ABG pH POC ABG pCO2 POC ABG pO2 ABG pO2 ABG HCO3 ABG Base Excess ABG Hemoglobin VBG pH Oxyhemoglobin Sodium Potassium Chloride Carbon Dioxide BUN Creatinine Glucose POC Glucose 215 H 218 H 283 H Lactic Acid Calcium AST ALT Alkaline Phosphatase CK-MB (CK-2) CK-MB (CK-2) Rel Index Total Protein Albumin TSH Urine WBC (Auto) Salicylates 02/19/17 02/19/17 02/20/17 14:49 22:10 05:10 WBC RBC Hgb Hct MCV MCH RDW Plt Count Lymph % (Auto) [place] % (Auto) Eos % (Auto) Seg Neutrophils % Seg Neuts % (Manual) Lymphocytes % (Manual) Seg Neutrophils # Seg Neutrophils # Man Lymphocytes # (Manual) APTT POC ABG pH ABG pH POC ABG pCO2 POC ABG pO2 ABG pO2 ABG HCO3 ABG Base Excess ABG Hemoglobin VBG pH Oxyhemoglobin Sodium Potassium Chloride Carbon Dioxide BUN Creatinine Glucose POC Glucose 290 H 169 H 209 H Lactic Acid Calcium AST ALT Alkaline Phosphatase CK-MB (CK-2) CK-MB (CK-2) Rel Index Total Protein Albumin TSH Urine WBC (Auto) Salicylates 02/20/17 02/20/17 02/21/17 15:05 21:52 02:00 WBC RBC Hgb Hct MCV MCH RDW Plt Count Lymph % (Auto) [place] % (Auto) Eos % (Auto) Seg Neutrophils % Seg Neuts % (Manual) Lymphocytes % (Manual) Seg Neutrophils # Seg Neutrophils # Man Lymphocytes # (Manual) APTT POC ABG pH ABG pH POC ABG pCO2 POC ABG pO2 ABG pO2 ABG HCO3 ABG Base Excess ABG Hemoglobin VBG pH Oxyhemoglobin Sodium Potassium Chloride Carbon Dioxide BUN Creatinine Glucose POC Glucose 172 H 209 H 216 H Lactic Acid Calcium AST ALT Alkaline Phosphatase CK-MB (CK-2) CK-MB (CK-2) Rel Index Total Protein Albumin TSH Urine WBC (Auto) Salicylates 02/21/17 02/21/17 02/21/17 04:54 14:43 17:47 WBC RBC Hgb Hct MCV MCH RDW Plt Count Lymph % (Auto) [place] % (Auto) Eos % (Auto) Seg Neutrophils % Seg Neuts % (Manual) Lymphocytes % (Manual) Seg Neutrophils # Seg Neutrophils # Man Lymphocytes # (Manual) APTT POC ABG pH ABG pH POC ABG pCO2 POC ABG pO2 ABG pO2 ABG HCO3 ABG Base Excess ABG Hemoglobin VBG pH Oxyhemoglobin Sodium Potassium Chloride Carbon Dioxide BUN Creatinine Glucose POC Glucose 227 H 290 H 220 H Lactic Acid Calcium AST ALT Alkaline Phosphatase CK-MB (CK-2) CK-MB (CK-2) Rel Index Total Protein Albumin TSH Urine WBC (Auto) Salicylates 02/21/17 02/22/17 02/22/17 22:02 04:52 15:25 WBC RBC Hgb Hct MCV MCH RDW Plt Count Lymph % (Auto) [place] % (Auto) Eos % (Auto) Seg Neutrophils % Seg Neuts % (Manual) Lymphocytes % (Manual) Seg Neutrophils # Seg Neutrophils # Man Lymphocytes # (Manual) APTT POC ABG pH ABG pH POC ABG pCO2 POC ABG pO2 ABG pO2 ABG HCO3 ABG Base Excess ABG Hemoglobin VBG pH Oxyhemoglobin Sodium Potassium Chloride Carbon Dioxide BUN Creatinine Glucose POC Glucose 246 H 212 H 236 H Lactic Acid Calcium AST ALT Alkaline Phosphatase CK-MB (CK-2) CK-MB (CK-2) Rel Index Total Protein Albumin TSH Urine WBC (Auto) Salicylates 11/14/17 11/15/17 11/15/17 21:33 06:04 10:00 WBC RBC Hgb Hct MCV MCH RDW Plt Count Lymph % (Auto) [place] % (Auto) Eos % (Auto) Seg Neutrophils % Seg Neuts % (Manual) Lymphocytes % (Manual) Seg Neutrophils # Seg Neutrophils # Man Lymphocytes # (Manual) APTT POC ABG pH ABG pH POC ABG pCO2 POC ABG pO2 ABG pO2 ABG HCO3 ABG Base Excess ABG Hemoglobin VBG pH Oxyhemoglobin Sodium Potassium Chloride Carbon Dioxide BUN Creatinine Glucose POC Glucose 255 H 208 H 174 H Lactic Acid Calcium AST ALT Alkaline Phosphatase CK-MB (CK-2) CK-MB (CK-2) Rel Index Total Protein Albumin TSH Urine WBC (Auto) Salicylates 02/23/17 02/23/17 02/23/17 12:52 17:15 21:51 WBC RBC Hgb Hct MCV MCH RDW Plt Count Lymph % (Auto) [place] % (Auto) Eos % (Auto) Seg Neutrophils % Seg Neuts % (Manual) Lymphocytes % (Manual) Seg Neutrophils # Seg Neutrophils # Man Lymphocytes # (Manual) APTT POC ABG pH ABG pH POC ABG pCO2 POC ABG pO2 ABG pO2 ABG HCO3 ABG Base Excess ABG Hemoglobin VBG pH Oxyhemoglobin Sodium Potassium Chloride Carbon Dioxide BUN Creatinine Glucose POC Glucose 203 H 269 H 205 H Lactic Acid Calcium AST ALT Alkaline Phosphatase CK-MB (CK-2) CK-MB (CK-2) Rel Index Total Protein Albumin TSH Urine WBC (Auto) Salicylates 02/24/17 02/24/17 02/24/17 10:23 17:45 21:24 WBC RBC Hgb Hct MCV MCH RDW Plt Count Lymph % (Auto) [place] % (Auto) Eos % (Auto) Seg Neutrophils % Seg Neuts % (Manual) Lymphocytes % (Manual) Seg Neutrophils # Seg Neutrophils # Man Lymphocytes # (Manual) APTT POC ABG pH ABG pH POC ABG pCO2 POC ABG pO2 ABG pO2 ABG HCO3 ABG Base Excess ABG Hemoglobin VBG pH Oxyhemoglobin Sodium Potassium Chloride Carbon Dioxide BUN Creatinine Glucose POC Glucose 280 H 239 H 254 H Lactic Acid Calcium AST ALT Alkaline Phosphatase CK-MB (CK-2) CK-MB (CK-2) Rel Index Total Protein Albumin TSH Urine WBC (Auto) Salicylates 02/25/17 02/25/17 02/25/17 02:12 05:17 14:32 WBC RBC Hgb Hct MCV MCH RDW Plt Count Lymph % (Auto) [place] % (Auto) Eos % (Auto) Seg Neutrophils % Seg Neuts % (Manual) Lymphocytes % (Manual) Seg Neutrophils # Seg Neutrophils # Man Lymphocytes # (Manual) APTT POC ABG pH ABG pH POC ABG pCO2 POC ABG pO2 ABG pO2 ABG HCO3 ABG Base Excess ABG Hemoglobin VBG pH Oxyhemoglobin Sodium Potassium Chloride Carbon Dioxide BUN Creatinine Glucose POC Glucose 296 H 332 H 353 H Lactic Acid Calcium AST ALT Alkaline Phosphatase CK-MB (CK-2) CK-MB (CK-2) Rel Index Total Protein Albumin TSH Urine WBC (Auto) Salicylates 02/25/17 02/26/17 02/26/17 22:14 00:37 05:52 WBC RBC Hgb Hct MCV MCH RDW Plt Count Lymph % (Auto) [place] % (Auto) Eos % (Auto) Seg Neutrophils % Seg Neuts % (Manual) Lymphocytes % (Manual) Seg Neutrophils # Seg Neutrophils # Man Lymphocytes # (Manual) APTT POC ABG pH ABG pH POC ABG pCO2 POC ABG pO2 ABG pO2 ABG HCO3 ABG Base Excess ABG Hemoglobin VBG pH Oxyhemoglobin Sodium Potassium Chloride Carbon Dioxide BUN Creatinine Glucose POC Glucose 201 H 233 H 269 H Lactic Acid Calcium AST ALT Alkaline Phosphatase CK-MB (CK-2) CK-MB (CK-2) Rel Index Total Protein Albumin TSH Urine WBC (Auto) Salicylates 02/26/17 02/26/17 02/26/17 11:48 13:49 21:26 WBC RBC Hgb Hct MCV MCH RDW Plt Count Lymph % (Auto) [place] % (Auto) Eos % (Auto) Seg Neutrophils % Seg Neuts % (Manual) Lymphocytes % (Manual) Seg Neutrophils # Seg Neutrophils # Man Lymphocytes # (Manual) APTT POC ABG pH ABG pH POC ABG pCO2 POC ABG pO2 ABG pO2 ABG HCO3 ABG Base Excess ABG Hemoglobin VBG pH Oxyhemoglobin Sodium Potassium Chloride Carbon Dioxide BUN Creatinine Glucose POC Glucose 333 H 322 H 244 H Lactic Acid Calcium AST ALT Alkaline Phosphatase CK-MB (CK-2) CK-MB (CK-2) Rel Index Total Protein Albumin TSH Urine WBC (Auto) Salicylates 02/27/17 02/27/17 02/27/17 05:27 13:51 21:48 WBC RBC Hgb Hct MCV MCH RDW Plt Count Lymph % (Auto) [place] % (Auto) Eos % (Auto) Seg Neutrophils % Seg Neuts % (Manual) Lymphocytes % (Manual) Seg Neutrophils # Seg Neutrophils # Man Lymphocytes # (Manual) APTT POC ABG pH ABG pH POC ABG pCO2 POC ABG pO2 ABG pO2 ABG HCO3 ABG Base Excess ABG Hemoglobin VBG pH Oxyhemoglobin Sodium Potassium Chloride Carbon Dioxide BUN Creatinine Glucose POC Glucose 217 H 239 H 254 H Lactic Acid Calcium AST ALT Alkaline Phosphatase CK-MB (CK-2) CK-MB (CK-2) Rel Index Total Protein Albumin TSH Urine WBC (Auto) Salicylates 02/28/17 02/28/17 02/28/17 05:38 11:00 19:44 WBC RBC Hgb Hct MCV MCH RDW Plt Count Lymph % (Auto) [place] % (Auto) Eos % (Auto) Seg Neutrophils % Seg Neuts % (Manual) Lymphocytes % (Manual) Seg Neutrophils # Seg Neutrophils # Man Lymphocytes # (Manual) APTT POC ABG pH ABG pH POC ABG pCO2 POC ABG pO2 ABG pO2 ABG HCO3 ABG Base Excess ABG Hemoglobin VBG pH Oxyhemoglobin Sodium Potassium Chloride Carbon Dioxide BUN Creatinine Glucose POC Glucose 325 H 203 H 116 H Lactic Acid Calcium AST ALT Alkaline Phosphatase CK-MB (CK-2) CK-MB (CK-2) Rel Index Total Protein Albumin TSH Urine WBC (Auto) Salicylates 03/01/17 03/01/17 03/01/17 00:08 05:31 12:17 WBC RBC Hgb Hct MCV MCH RDW Plt Count Lymph % (Auto) [place] % (Auto) Eos % (Auto) Seg Neutrophils % Seg Neuts % (Manual) Lymphocytes % (Manual) Seg Neutrophils # Seg Neutrophils # Man Lymphocytes # (Manual) APTT POC ABG pH ABG pH POC ABG pCO2 POC ABG pO2 ABG pO2 ABG HCO3 ABG Base Excess ABG Hemoglobin VBG pH Oxyhemoglobin Sodium Potassium Chloride Carbon Dioxide BUN Creatinine Glucose POC Glucose 202 H 183 H 184 H Lactic Acid Calcium AST ALT Alkaline Phosphatase CK-MB (CK-2) CK-MB (CK-2) Rel Index Total Protein Albumin TSH Urine WBC (Auto) Salicylates 03/02/17 03/02/17 03/02/17 00:12 05:58 18:22 WBC RBC Hgb Hct MCV MCH RDW Plt Count Lymph % (Auto) [place] % (Auto) Eos % (Auto) Seg Neutrophils % Seg Neuts % (Manual) Lymphocytes % (Manual) Seg Neutrophils # Seg Neutrophils # Man Lymphocytes # (Manual) APTT POC ABG pH ABG pH POC ABG pCO2 POC ABG pO2 ABG pO2 ABG HCO3 ABG Base Excess ABG Hemoglobin VBG pH Oxyhemoglobin Sodium Potassium Chloride Carbon Dioxide BUN Creatinine Glucose POC Glucose 117 H 176 H 156 H Lactic Acid Calcium AST ALT Alkaline Phosphatase CK-MB (CK-2) CK-MB (CK-2) Rel Index Total Protein Albumin TSH Urine WBC (Auto) Salicylates 03/02/17 03/03/17 03/03/17 23:51 05:44 11:32 WBC RBC Hgb Hct MCV MCH RDW Plt Count Lymph % (Auto) [place] % (Auto) Eos % (Auto) Seg Neutrophils % Seg Neuts % (Manual) Lymphocytes % (Manual) Seg Neutrophils # Seg Neutrophils # Man Lymphocytes # (Manual) APTT POC ABG pH ABG pH POC ABG pCO2 POC ABG pO2 ABG pO2 ABG HCO3 ABG Base Excess ABG Hemoglobin VBG pH Oxyhemoglobin Sodium Potassium Chloride Carbon Dioxide BUN Creatinine Glucose POC Glucose 211 H 117 H 133 H Lactic Acid Calcium AST ALT Alkaline Phosphatase CK-MB (CK-2) CK-MB (CK-2) Rel Index Total Protein Albumin TSH Urine WBC (Auto) Salicylates 03/03/17 03/03/17 03/04/17 17:43 23:17 05:30 WBC RBC Hgb Hct MCV MCH RDW Plt Count Lymph % (Auto) [place] % (Auto) Eos % (Auto) Seg Neutrophils % Seg Neuts % (Manual) Lymphocytes % (Manual) Seg Neutrophils # Seg Neutrophils # Man Lymphocytes # (Manual) APTT POC ABG pH ABG pH POC ABG pCO2 POC ABG pO2 ABG pO2 ABG HCO3 ABG Base Excess ABG Hemoglobin VBG pH Oxyhemoglobin Sodium Potassium Chloride Carbon Dioxide BUN Creatinine Glucose POC Glucose 206 H 170 H 126 H Lactic Acid Calcium AST ALT Alkaline Phosphatase CK-MB (CK-2) CK-MB (CK-2) Rel Index Total Protein Albumin TSH Urine WBC (Auto) Salicylates 03/04/17 03/04/17 03/05/17 12:17 17:27 05:20 WBC RBC Hgb Hct MCV MCH RDW Plt Count Lymph % (Auto) [place] % (Auto) Eos % (Auto) Seg Neutrophils % Seg Neuts % (Manual) Lymphocytes % (Manual) Seg Neutrophils # Seg Neutrophils # Man Lymphocytes # (Manual) APTT POC ABG pH ABG pH POC ABG pCO2 POC ABG pO2 ABG pO2 ABG HCO3 ABG Base Excess ABG Hemoglobin VBG pH Oxyhemoglobin Sodium Potassium Chloride Carbon Dioxide BUN Creatinine Glucose POC Glucose 135 H 121 H 185 H Lactic Acid Calcium AST ALT Alkaline Phosphatase CK-MB (CK-2) CK-MB (CK-2) Rel Index Total Protein Albumin TSH Urine WBC (Auto) Salicylates 03/05/17 03/06/17 03/06/17 11:50 11:52 17:34 WBC RBC Hgb Hct MCV MCH RDW Plt Count Lymph % (Auto) [place] % (Auto) Eos % (Auto) Seg Neutrophils % Seg Neuts % (Manual) Lymphocytes % (Manual) Seg Neutrophils # Seg Neutrophils # Man Lymphocytes # (Manual) APTT POC ABG pH ABG pH POC ABG pCO2 POC ABG pO2 ABG pO2 ABG HCO3 ABG Base Excess ABG Hemoglobin VBG pH Oxyhemoglobin Sodium Potassium Chloride Carbon Dioxide BUN Creatinine Glucose POC Glucose 116 H 133 H 181 H Lactic Acid Calcium AST ALT Alkaline Phosphatase CK-MB (CK-2) CK-MB (CK-2) Rel Index Total Protein Albumin TSH Urine WBC (Auto) Salicylates 03/07/17 03/07/17 03/07/17 05:21 11:36 17:49 WBC RBC Hgb Hct MCV MCH RDW Plt Count Lymph % (Auto) [place] % (Auto) Eos % (Auto) Seg Neutrophils % Seg Neuts % (Manual) Lymphocytes % (Manual) Seg Neutrophils # Seg Neutrophils # Man Lymphocytes # (Manual) APTT POC ABG pH ABG pH POC ABG pCO2 POC ABG pO2 ABG pO2 ABG HCO3 ABG Base Excess ABG Hemoglobin VBG pH Oxyhemoglobin Sodium Potassium Chloride Carbon Dioxide BUN Creatinine Glucose POC Glucose 159 H 137 H 158 H Lactic Acid Calcium AST ALT Alkaline Phosphatase CK-MB (CK-2) CK-MB (CK-2) Rel Index Total Protein Albumin TSH Urine WBC (Auto) Salicylates 03/08/17 03/08/17 03/08/17 05:51 13:58 23:50 WBC RBC Hgb Hct MCV MCH RDW Plt Count Lymph % (Auto) [place] % (Auto) Eos % (Auto) Seg Neutrophils % Seg Neuts % (Manual) Lymphocytes % (Manual) Seg Neutrophils # Seg Neutrophils # Man Lymphocytes # (Manual) APTT POC ABG pH ABG pH POC ABG pCO2 POC ABG pO2 ABG pO2 ABG HCO3 ABG Base Excess ABG Hemoglobin VBG pH Oxyhemoglobin Sodium Potassium Chloride Carbon Dioxide BUN Creatinine Glucose POC Glucose 122 H 182 H 114 H Lactic Acid Calcium AST ALT Alkaline Phosphatase CK-MB (CK-2) CK-MB (CK-2) Rel Index Total Protein Albumin TSH Urine WBC (Auto) Salicylates 03/09/17 03/09/17 03/09/17 05:21 05:51 05:51 WBC RBC 3.61 L Hgb 9.5 L Hct 28.3 L MCV 79 L MCH 26 L RDW 17.8 H Plt Count Lymph % (Auto) [place] % (Auto) Eos % (Auto) Seg Neutrophils % Seg Neuts % (Manual) Lymphocytes % (Manual) Seg Neutrophils # Seg Neutrophils # Man Lymphocytes # (Manual) APTT POC ABG pH ABG pH POC ABG pCO2 POC ABG pO2 ABG pO2 ABG HCO3 ABG Base Excess ABG Hemoglobin VBG pH Oxyhemoglobin Sodium 134 L Potassium Chloride 95.5 L Carbon Dioxide BUN 33 H Creatinine 0.5 L Glucose 143 H POC Glucose 153 H Lactic Acid Calcium AST ALT Alkaline Phosphatase CK-MB (CK-2) CK-MB (CK-2) Rel Index Total Protein Albumin TSH Urine WBC (Auto) Salicylates 03/09/17 03/09/17 03/09/17 12:10 18:13 21:00 WBC RBC Hgb Hct MCV MCH RDW Plt Count Lymph % (Auto) [place] % (Auto) Eos % (Auto) Seg Neutrophils % Seg Neuts % (Manual) Lymphocytes % (Manual) Seg Neutrophils # Seg Neutrophils # Man Lymphocytes # (Manual) APTT POC ABG pH ABG pH POC ABG pCO2 POC ABG pO2 ABG pO2 ABG HCO3 ABG Base Excess ABG Hemoglobin VBG pH Oxyhemoglobin Sodium Potassium Chloride Carbon Dioxide BUN Creatinine Glucose POC Glucose 203 H 221 H 198 H Lactic Acid Calcium AST ALT Alkaline Phosphatase CK-MB (CK-2) CK-MB (CK-2) Rel Index Total Protein Albumin TSH Urine WBC (Auto) Salicylates 03/09/17 03/10/17 03/10/17 23:58 05:09 05:09 WBC RBC Hgb 10.3 L Hct 30.5 L MCV 78 L MCH 26 L RDW 17.9 H Plt Count Lymph % (Auto) [place] % (Auto) 10.0 H Eos % (Auto) 6.0 H Seg Neutrophils % Seg Neuts % (Manual) Lymphocytes % (Manual) Seg Neutrophils # Seg Neutrophils # Man Lymphocytes # (Manual) APTT POC ABG pH ABG pH POC ABG pCO2 POC ABG pO2 ABG pO2 ABG HCO3 ABG Base Excess ABG Hemoglobin VBG pH Oxyhemoglobin Sodium 132 L Potassium Chloride 92.2 L Carbon Dioxide BUN 33 H Creatinine 0.5 L Glucose 50 L POC Glucose 167 H Lactic Acid Calcium AST ALT Alkaline Phosphatase CK-MB (CK-2) CK-MB (CK-2) Rel Index Total Protein Albumin TSH Urine WBC (Auto) Salicylates 03/10/17 03/10/17 03/10/17 05:33 05:34 11:48 WBC RBC Hgb Hct MCV MCH RDW Plt Count Lymph % (Auto) [place] % (Auto) Eos % (Auto) Seg Neutrophils % Seg Neuts % (Manual) Lymphocytes % (Manual) Seg Neutrophils # Seg Neutrophils # Man Lymphocytes # (Manual) APTT POC ABG pH ABG pH POC ABG pCO2 POC ABG pO2 ABG pO2 ABG HCO3 ABG Base Excess ABG Hemoglobin VBG pH Oxyhemoglobin Sodium Potassium Chloride Carbon Dioxide BUN Creatinine Glucose POC Glucose 52 L 53 L 148 H Lactic Acid Calcium AST ALT Alkaline Phosphatase CK-MB (CK-2) CK-MB (CK-2) Rel Index Total Protein Albumin TSH Urine WBC (Auto) Salicylates 03/10/17 03/10/17 03/11/17 17:53 23:47 05:18 WBC RBC Hgb Hct MCV MCH RDW Plt Count Lymph % (Auto) [place] % (Auto) Eos % (Auto) Seg Neutrophils % Seg Neuts % (Manual) Lymphocytes % (Manual) Seg Neutrophils # Seg Neutrophils # Man Lymphocytes # (Manual) APTT POC ABG pH ABG pH POC ABG pCO2 POC ABG pO2 ABG pO2 ABG HCO3 ABG Base Excess ABG Hemoglobin VBG pH Oxyhemoglobin Sodium Potassium Chloride Carbon Dioxide BUN Creatinine Glucose POC Glucose 189 H 398 H 126 H Lactic Acid Calcium AST ALT Alkaline Phosphatase CK-MB (CK-2) CK-MB (CK-2) Rel Index Total Protein Albumin TSH Urine WBC (Auto) Salicylates 03/11/17 03/11/17 03/11/17 11:53 17:30 23:10 WBC RBC Hgb Hct MCV MCH RDW Plt Count Lymph % (Auto) [place] % (Auto) Eos % (Auto) Seg Neutrophils % Seg Neuts % (Manual) Lymphocytes % (Manual) Seg Neutrophils # Seg Neutrophils # Man Lymphocytes # (Manual) APTT POC ABG pH ABG pH POC ABG pCO2 POC ABG pO2 ABG pO2 ABG HCO3 ABG Base Excess ABG Hemoglobin VBG pH Oxyhemoglobin Sodium Potassium Chloride Carbon Dioxide BUN Creatinine Glucose POC Glucose 198 H 142 H 244 H Lactic Acid Calcium AST ALT Alkaline Phosphatase CK-MB (CK-2) CK-MB (CK-2) Rel Index Total Protein Albumin TSH Urine WBC (Auto) Salicylates 03/12/17 03/12/17 03/12/17 04:36 11:49 17:23 WBC RBC Hgb Hct MCV MCH RDW Plt Count Lymph % (Auto) [place] % (Auto) Eos % (Auto) Seg Neutrophils % Seg Neuts % (Manual) Lymphocytes % (Manual) Seg Neutrophils # Seg Neutrophils # Man Lymphocytes # (Manual) APTT POC ABG pH ABG pH POC ABG pCO2 POC ABG pO2 ABG pO2 ABG HCO3 ABG Base Excess ABG Hemoglobin VBG pH Oxyhemoglobin Sodium Potassium Chloride Carbon Dioxide BUN Creatinine Glucose POC Glucose 205 H 197 H 209 H Lactic Acid Calcium AST ALT Alkaline Phosphatase CK-MB (CK-2) CK-MB (CK-2) Rel Index Total Protein Albumin TSH Urine WBC (Auto) Salicylates 03/12/17 03/13/17 03/13/17 23:51 05:32 11:43 WBC RBC Hgb Hct MCV MCH RDW Plt Count Lymph % (Auto) [place] % (Auto) Eos % (Auto) Seg Neutrophils % Seg Neuts % (Manual) Lymphocytes % (Manual) Seg Neutrophils # Seg Neutrophils # Man Lymphocytes # (Manual) APTT POC ABG pH ABG pH POC ABG pCO2 POC ABG pO2 ABG pO2 ABG HCO3 ABG Base Excess ABG Hemoglobin VBG pH Oxyhemoglobin Sodium Potassium Chloride Carbon Dioxide BUN Creatinine Glucose POC Glucose 210 H 154 H 164 H Lactic Acid Calcium AST ALT Alkaline Phosphatase CK-MB (CK-2) CK-MB (CK-2) Rel Index Total Protein Albumin TSH Urine WBC (Auto) Salicylates 03/13/17 03/13/17 03/14/17 17:11 23:26 05:42 WBC RBC Hgb Hct MCV MCH RDW Plt Count Lymph % (Auto) [place] % (Auto) Eos % (Auto) Seg Neutrophils % Seg Neuts % (Manual) Lymphocytes % (Manual) Seg Neutrophils # Seg Neutrophils # Man Lymphocytes # (Manual) APTT POC ABG pH ABG pH POC ABG pCO2 POC ABG pO2 ABG pO2 ABG HCO3 ABG Base Excess ABG Hemoglobin VBG pH Oxyhemoglobin Sodium Potassium Chloride Carbon Dioxide BUN Creatinine Glucose POC Glucose 195 H 240 H 230 H Lactic Acid Calcium AST ALT Alkaline Phosphatase CK-MB (CK-2) CK-MB (CK-2) Rel Index Total Protein Albumin TSH Urine WBC (Auto) Salicylates 03/14/17 03/14/17 03/14/17 14:04 17:34 23:42 WBC RBC Hgb Hct MCV MCH RDW Plt Count Lymph % (Auto) [place] % (Auto) Eos % (Auto) Seg Neutrophils % Seg Neuts % (Manual) Lymphocytes % (Manual) Seg Neutrophils # Seg Neutrophils # Man Lymphocytes # (Manual) APTT POC ABG pH ABG pH POC ABG pCO2 POC ABG pO2 ABG pO2 ABG HCO3 ABG Base Excess ABG Hemoglobin VBG pH Oxyhemoglobin Sodium Potassium Chloride Carbon Dioxide BUN Creatinine Glucose POC Glucose 227 H 186 H 225 H Lactic Acid Calcium AST ALT Alkaline Phosphatase CK-MB (CK-2) CK-MB (CK-2) Rel Index Total Protein Albumin TSH Urine WBC (Auto) Salicylates 03/15/17 03/15/17 03/15/17 05:21 17:13 21:37 WBC RBC Hgb Hct MCV MCH RDW Plt Count Lymph % (Auto) [place] % (Auto) Eos % (Auto) Seg Neutrophils % Seg Neuts % (Manual) Lymphocytes % (Manual) Seg Neutrophils # Seg Neutrophils # Man Lymphocytes # (Manual) APTT POC ABG pH ABG pH POC ABG pCO2 POC ABG pO2 ABG pO2 ABG HCO3 ABG Base Excess ABG Hemoglobin VBG pH Oxyhemoglobin Sodium Potassium Chloride Carbon Dioxide BUN Creatinine Glucose POC Glucose 244 H 203 H 216 H Lactic Acid Calcium AST ALT Alkaline Phosphatase CK-MB (CK-2) CK-MB (CK-2) Rel Index Total Protein Albumin TSH Urine WBC (Auto) Salicylates 03/16/17 03/16/17 03/16/17 05:52 18:07 21:54 WBC RBC Hgb Hct MCV MCH RDW Plt Count Lymph % (Auto) [place] % (Auto) Eos % (Auto) Seg Neutrophils % Seg Neuts % (Manual) Lymphocytes % (Manual) Seg Neutrophils # Seg Neutrophils # Man Lymphocytes # (Manual) APTT POC ABG pH ABG pH POC ABG pCO2 POC ABG pO2 ABG pO2 ABG HCO3 ABG Base Excess ABG Hemoglobin VBG pH Oxyhemoglobin Sodium Potassium Chloride Carbon Dioxide BUN Creatinine Glucose POC Glucose 248 H 254 H 244 H Lactic Acid Calcium AST ALT Alkaline Phosphatase CK-MB (CK-2) CK-MB (CK-2) Rel Index Total Protein Albumin TSH Urine WBC (Auto) Salicylates 03/17/17 03/17/17 03/17/17 07:07 07:42 07:43 WBC RBC Hgb 9.7 L Hct 29.1 L MCV 78 L MCH 26 L RDW 17.4 H Plt Count Lymph % (Auto) [place] % (Auto) Eos % (Auto) Seg Neutrophils % Seg Neuts % (Manual) Lymphocytes % (Manual) Seg Neutrophils # Seg Neutrophils # Man Lymphocytes # (Manual) APTT POC ABG pH ABG pH POC ABG pCO2 POC ABG pO2 ABG pO2 ABG HCO3 ABG Base Excess ABG Hemoglobin VBG pH Oxyhemoglobin Sodium Potassium Chloride 96.6 L Carbon Dioxide BUN 30 H Creatinine 0.5 L Glucose 251 H POC Glucose 222 H Lactic Acid Calcium AST ALT Alkaline Phosphatase CK-MB (CK-2) CK-MB (CK-2) Rel Index Total Protein Albumin TSH Urine WBC (Auto) Salicylates 03/17/17 03/17/17 03/18/17 14:08 21:20 14:24 WBC RBC Hgb Hct MCV MCH RDW Plt Count Lymph % (Auto) [place] % (Auto) Eos % (Auto) Seg Neutrophils % Seg Neuts % (Manual) Lymphocytes % (Manual) Seg Neutrophils # Seg Neutrophils # Man Lymphocytes # (Manual) APTT POC ABG pH ABG pH POC ABG pCO2 POC ABG pO2 ABG pO2 ABG HCO3 ABG Base Excess ABG Hemoglobin VBG pH Oxyhemoglobin Sodium Potassium Chloride Carbon Dioxide BUN Creatinine Glucose POC Glucose 281 H 239 H 195 H Lactic Acid Calcium AST ALT Alkaline Phosphatase CK-MB (CK-2) CK-MB (CK-2) Rel Index Total Protein Albumin TSH Urine WBC (Auto) Salicylates 03/18/17 03/19/17 03/19/17 21:37 04:57 14:23 WBC RBC Hgb Hct MCV MCH RDW Plt Count Lymph % (Auto) [place] % (Auto) Eos % (Auto) Seg Neutrophils % Seg Neuts % (Manual) Lymphocytes % (Manual) Seg Neutrophils # Seg Neutrophils # Man Lymphocytes # (Manual) APTT POC ABG pH ABG pH POC ABG pCO2 POC ABG pO2 ABG pO2 ABG HCO3 ABG Base Excess ABG Hemoglobin VBG pH Oxyhemoglobin Sodium Potassium Chloride Carbon Dioxide BUN Creatinine Glucose POC Glucose 227 H 205 H 277 H Lactic Acid Calcium AST ALT Alkaline Phosphatase CK-MB (CK-2) CK-MB (CK-2) Rel Index Total Protein Albumin TSH Urine WBC (Auto) Salicylates 03/19/17 03/19/17 03/20/17 20:31 21:47 04:55 WBC RBC Hgb Hct MCV MCH RDW Plt Count Lymph % (Auto) [place] % (Auto) Eos % (Auto) Seg Neutrophils % Seg Neuts % (Manual) Lymphocytes % (Manual) Seg Neutrophils # Seg Neutrophils # Man Lymphocytes # (Manual) APTT POC ABG pH ABG pH POC ABG pCO2 POC ABG pO2 ABG pO2 ABG HCO3 ABG Base Excess ABG Hemoglobin VBG pH Oxyhemoglobin Sodium Potassium Chloride Carbon Dioxide BUN Creatinine Glucose POC Glucose 256 H 270 H 202 H Lactic Acid Calcium AST ALT Alkaline Phosphatase CK-MB (CK-2) CK-MB (CK-2) Rel Index Total Protein Albumin TSH Urine WBC (Auto) Salicylates 03/20/17 03/20/17 03/21/17 14:09 21:40 05:09 WBC RBC Hgb Hct MCV MCH RDW Plt Count Lymph % (Auto) [place] % (Auto) Eos % (Auto) Seg Neutrophils % Seg Neuts % (Manual) Lymphocytes % (Manual) Seg Neutrophils # Seg Neutrophils # Man Lymphocytes # (Manual) APTT POC ABG pH ABG pH POC ABG pCO2 POC ABG pO2 ABG pO2 ABG HCO3 ABG Base Excess ABG Hemoglobin VBG pH Oxyhemoglobin Sodium Potassium Chloride Carbon Dioxide BUN Creatinine Glucose POC Glucose 200 H 214 H 233 H Lactic Acid Calcium AST ALT Alkaline Phosphatase CK-MB (CK-2) CK-MB (CK-2) Rel Index Total Protein Albumin TSH Urine WBC (Auto) Salicylates 03/21/17 03/21/17 03/22/17 14:06 21:26 05:43 WBC RBC Hgb Hct MCV MCH RDW Plt Count Lymph % (Auto) [place] % (Auto) Eos % (Auto) Seg Neutrophils % Seg Neuts % (Manual) Lymphocytes % (Manual) Seg Neutrophils # Seg Neutrophils # Man Lymphocytes # (Manual) APTT POC ABG pH ABG pH POC ABG pCO2 POC ABG pO2 ABG pO2 ABG HCO3 ABG Base Excess ABG Hemoglobin VBG pH Oxyhemoglobin Sodium Potassium Chloride Carbon Dioxide BUN Creatinine Glucose POC Glucose 250 H 155 H 251 H Lactic Acid Calcium AST ALT Alkaline Phosphatase CK-MB (CK-2) CK-MB (CK-2) Rel Index Total Protein Albumin TSH Urine WBC (Auto) Salicylates 03/22/17 03/22/17 03/23/17 13:46 21:16 00:23 WBC RBC Hgb Hct MCV MCH RDW Plt Count Lymph % (Auto) [place] % (Auto) Eos % (Auto) Seg Neutrophils % Seg Neuts % (Manual) Lymphocytes % (Manual) Seg Neutrophils # Seg Neutrophils # Man Lymphocytes # (Manual) APTT POC ABG pH ABG pH POC ABG pCO2 POC ABG pO2 ABG pO2 ABG HCO3 ABG Base Excess ABG Hemoglobin VBG pH Oxyhemoglobin Sodium Potassium Chloride Carbon Dioxide BUN Creatinine Glucose POC Glucose 269 H 197 H 126 H Lactic Acid Calcium AST ALT Alkaline Phosphatase CK-MB (CK-2) CK-MB (CK-2) Rel Index Total Protein Albumin TSH Urine WBC (Auto) Salicylates 03/23/17 03/23/17 03/23/17 05:39 14:06 21:39 WBC RBC Hgb Hct MCV MCH RDW Plt Count Lymph % (Auto) [place] % (Auto) Eos % (Auto) Seg Neutrophils % Seg Neuts % (Manual) Lymphocytes % (Manual) Seg Neutrophils # Seg Neutrophils # Man Lymphocytes # (Manual) APTT POC ABG pH ABG pH POC ABG pCO2 POC ABG pO2 ABG pO2 ABG HCO3 ABG Base Excess ABG Hemoglobin VBG pH Oxyhemoglobin Sodium Potassium Chloride Carbon Dioxide BUN Creatinine Glucose POC Glucose 234 H 241 H 248 H Lactic Acid Calcium AST ALT Alkaline Phosphatase CK-MB (CK-2) CK-MB (CK-2) Rel Index Total Protein Albumin TSH Urine WBC (Auto) Salicylates 03/24/17 03/24/17 03/25/17 05:06 21:46 05:38 WBC RBC Hgb Hct MCV MCH RDW Plt Count Lymph % (Auto) [place] % (Auto) Eos % (Auto) Seg Neutrophils % Seg Neuts % (Manual) Lymphocytes % (Manual) Seg Neutrophils # Seg Neutrophils # Man Lymphocytes # (Manual) APTT POC ABG pH ABG pH POC ABG pCO2 POC ABG pO2 ABG pO2 ABG HCO3 ABG Base Excess ABG Hemoglobin VBG pH Oxyhemoglobin Sodium Potassium Chloride Carbon Dioxide BUN Creatinine Glucose POC Glucose 232 H 276 H 242 H Lactic Acid Calcium AST ALT Alkaline Phosphatase CK-MB (CK-2) CK-MB (CK-2) Rel Index Total Protein Albumin TSH Urine WBC (Auto) Salicylates 03/25/17 03/25/17 03/26/17 14:30 23:14 13:53 WBC RBC Hgb Hct MCV MCH RDW Plt Count Lymph % (Auto) [place] % (Auto) Eos % (Auto) Seg Neutrophils % Seg Neuts % (Manual) Lymphocytes % (Manual) Seg Neutrophils # Seg Neutrophils # Man Lymphocytes # (Manual) APTT POC ABG pH ABG pH POC ABG pCO2 POC ABG pO2 ABG pO2 ABG HCO3 ABG Base Excess ABG Hemoglobin VBG pH Oxyhemoglobin Sodium Potassium Chloride Carbon Dioxide BUN Creatinine Glucose POC Glucose 246 H 208 H 195 H Lactic Acid Calcium AST ALT Alkaline Phosphatase CK-MB (CK-2) CK-MB (CK-2) Rel Index Total Protein Albumin TSH Urine WBC (Auto) Salicylates 03/26/17 03/27/17 03/27/17 21:58 05:18 14:57 WBC RBC Hgb Hct MCV MCH RDW Plt Count Lymph % (Auto) [place] % (Auto) Eos % (Auto) Seg Neutrophils % Seg Neuts % (Manual) Lymphocytes % (Manual) Seg Neutrophils # Seg Neutrophils # Man Lymphocytes # (Manual) APTT POC ABG pH ABG pH POC ABG pCO2 POC ABG pO2 ABG pO2 ABG HCO3 ABG Base Excess ABG Hemoglobin VBG pH Oxyhemoglobin Sodium Potassium Chloride Carbon Dioxide BUN Creatinine Glucose POC Glucose 241 H 199 H 269 H Lactic Acid Calcium AST ALT Alkaline Phosphatase CK-MB (CK-2) CK-MB (CK-2) Rel Index Total Protein Albumin TSH Urine WBC (Auto) Salicylates 03/27/17 03/28/17 03/28/17 21:33 13:52 21:29 WBC RBC Hgb Hct MCV MCH RDW Plt Count Lymph % (Auto) [place] % (Auto) Eos % (Auto) Seg Neutrophils % Seg Neuts % (Manual) Lymphocytes % (Manual) Seg Neutrophils # Seg Neutrophils # Man Lymphocytes # (Manual) APTT POC ABG pH ABG pH POC ABG pCO2 POC ABG pO2 ABG pO2 ABG HCO3 ABG Base Excess ABG Hemoglobin VBG pH Oxyhemoglobin Sodium Potassium Chloride Carbon Dioxide BUN Creatinine Glucose POC Glucose 214 H 243 H 286 H Lactic Acid Calcium AST ALT Alkaline Phosphatase CK-MB (CK-2) CK-MB (CK-2) Rel Index Total Protein Albumin TSH Urine WBC (Auto) Salicylates 03/29/17 03/29/17 03/29/17 04:32 04:32 13:58 WBC RBC Hgb 10.6 L Hct 32.9 L MCV 78 L MCH 25 L RDW 17.6 H Plt Count Lymph % (Auto) 38.0 H [place] % (Auto) 9.7 H Eos % (Auto) Seg Neutrophils % Seg Neuts % (Manual) Lymphocytes % (Manual) Seg Neutrophils # Seg Neutrophils # Man Lymphocytes # (Manual) APTT POC ABG pH ABG pH POC ABG pCO2 POC ABG pO2 ABG pO2 ABG HCO3 ABG Base Excess ABG Hemoglobin VBG pH Oxyhemoglobin Sodium 132 L Potassium Chloride 94.0 L Carbon Dioxide BUN 28 H Creatinine 0.5 L Glucose 236 H POC Glucose 171 H Lactic Acid Calcium AST ALT 71 H Alkaline Phosphatase 391 H CK-MB (CK-2) CK-MB (CK-2) Rel Index Total Protein 8.3 H Albumin 2.9 L TSH Urine WBC (Auto) Salicylates 03/29/17 03/30/17 03/30/17 20:59 06:07 11:52 WBC RBC Hgb Hct MCV MCH RDW Plt Count Lymph % (Auto) [place] % (Auto) Eos % (Auto) Seg Neutrophils % Seg Neuts % (Manual) Lymphocytes % (Manual) Seg Neutrophils # Seg Neutrophils # Man Lymphocytes # (Manual) APTT POC ABG pH ABG pH POC ABG pCO2 POC ABG pO2 ABG pO2 ABG HCO3 ABG Base Excess ABG Hemoglobin VBG pH Oxyhemoglobin Sodium Potassium Chloride Carbon Dioxide BUN Creatinine Glucose POC Glucose 215 H 259 H 197 H Lactic Acid Calcium AST ALT Alkaline Phosphatase CK-MB (CK-2) CK-MB (CK-2) Rel Index Total Protein Albumin TSH Urine WBC (Auto) Salicylates 03/30/17 03/31/17 03/31/17 21:34 05:42 14:34 WBC RBC Hgb Hct MCV MCH RDW Plt Count Lymph % (Auto) [place] % (Auto) Eos % (Auto) Seg Neutrophils % Seg Neuts % (Manual) Lymphocytes % (Manual) Seg Neutrophils # Seg Neutrophils # Man Lymphocytes # (Manual) APTT POC ABG pH ABG pH POC ABG pCO2 POC ABG pO2 ABG pO2 ABG HCO3 ABG Base Excess ABG Hemoglobin VBG pH Oxyhemoglobin Sodium Potassium Chloride Carbon Dioxide BUN Creatinine Glucose POC Glucose 207 H 184 H 213 H Lactic Acid Calcium AST ALT Alkaline Phosphatase CK-MB (CK-2) CK-MB (CK-2) Rel Index Total Protein Albumin TSH Urine WBC (Auto) Salicylates 03/31/17 04/01/17 04/01/17 21:32 05:53 13:48 WBC RBC Hgb Hct MCV MCH RDW Plt Count Lymph % (Auto) [place] % (Auto) Eos % (Auto) Seg Neutrophils % Seg Neuts % (Manual) Lymphocytes % (Manual) Seg Neutrophils # Seg Neutrophils # Man Lymphocytes # (Manual) APTT POC ABG pH ABG pH POC ABG pCO2 POC ABG pO2 ABG pO2 ABG HCO3 ABG Base Excess ABG Hemoglobin VBG pH Oxyhemoglobin Sodium Potassium Chloride Carbon Dioxide BUN Creatinine Glucose POC Glucose 249 H 225 H 256 H Lactic Acid Calcium AST ALT Alkaline Phosphatase CK-MB (CK-2) CK-MB (CK-2) Rel Index Total Protein Albumin TSH Urine WBC (Auto) Salicylates 04/01/17 04/02/17 04/02/17 21:34 05:32 14:05 WBC RBC Hgb Hct MCV MCH RDW Plt Count Lymph % (Auto) [place] % (Auto) Eos % (Auto) Seg Neutrophils % Seg Neuts % (Manual) Lymphocytes % (Manual) Seg Neutrophils # Seg Neutrophils # Man Lymphocytes # (Manual) APTT POC ABG pH ABG pH POC ABG pCO2 POC ABG pO2 ABG pO2 ABG HCO3 ABG Base Excess ABG Hemoglobin VBG pH Oxyhemoglobin Sodium Potassium Chloride Carbon Dioxide BUN Creatinine Glucose POC Glucose 292 H 220 H 187 H Lactic Acid Calcium AST ALT Alkaline Phosphatase CK-MB (CK-2) CK-MB (CK-2) Rel Index Total Protein Albumin TSH Urine WBC (Auto) Salicylates 04/02/17 04/03/17 04/03/17 21:57 04:49 14:12 WBC RBC Hgb Hct MCV MCH RDW Plt Count Lymph % (Auto) [place] % (Auto) Eos % (Auto) Seg Neutrophils % Seg Neuts % (Manual) Lymphocytes % (Manual) Seg Neutrophils # Seg Neutrophils # Man Lymphocytes # (Manual) APTT POC ABG pH ABG pH POC ABG pCO2 POC ABG pO2 ABG pO2 ABG HCO3 ABG Base Excess ABG Hemoglobin VBG pH Oxyhemoglobin Sodium Potassium Chloride Carbon Dioxide BUN Creatinine Glucose POC Glucose 285 H 256 H 197 H Lactic Acid Calcium AST ALT Alkaline Phosphatase CK-MB (CK-2) CK-MB (CK-2) Rel Index Total Protein Albumin TSH Urine WBC (Auto) Salicylates 04/03/17 04/04/17 04/04/17 21:11 05:20 13:18 WBC RBC Hgb Hct MCV MCH RDW Plt Count Lymph % (Auto) [place] % (Auto) Eos % (Auto) Seg Neutrophils % Seg Neuts % (Manual) Lymphocytes % (Manual) Seg Neutrophils # Seg Neutrophils # Man Lymphocytes # (Manual) APTT POC ABG pH ABG pH POC ABG pCO2 POC ABG pO2 ABG pO2 ABG HCO3 ABG Base Excess ABG Hemoglobin VBG pH Oxyhemoglobin Sodium Potassium Chloride Carbon Dioxide BUN Creatinine Glucose POC Glucose 166 H 228 H 252 H Lactic Acid Calcium AST ALT Alkaline Phosphatase CK-MB (CK-2) CK-MB (CK-2) Rel Index Total Protein Albumin TSH Urine WBC (Auto) Salicylates 04/04/17 04/05/17 04/05/17 21:51 06:14 09:54 WBC RBC Hgb Hct MCV MCH RDW Plt Count Lymph % (Auto) [place] % (Auto) Eos % (Auto) Seg Neutrophils % Seg Neuts % (Manual) Lymphocytes % (Manual) Seg Neutrophils # Seg Neutrophils # Man Lymphocytes # (Manual) APTT POC ABG pH ABG pH POC ABG pCO2 POC ABG pO2 ABG pO2 ABG HCO3 ABG Base Excess ABG Hemoglobin VBG pH Oxyhemoglobin Sodium Potassium Chloride Carbon Dioxide BUN Creatinine Glucose POC Glucose 252 H 152 H 181 H Lactic Acid Calcium AST ALT Alkaline Phosphatase CK-MB (CK-2) CK-MB (CK-2) Rel Index Total Protein Albumin TSH Urine WBC (Auto) Salicylates 04/05/17 04/05/17 04/05/17 14:49 17:34 21:38 WBC RBC Hgb Hct MCV MCH RDW Plt Count Lymph % (Auto) [place] % (Auto) Eos % (Auto) Seg Neutrophils % Seg Neuts % (Manual) Lymphocytes % (Manual) Seg Neutrophils # Seg Neutrophils # Man Lymphocytes # (Manual) APTT POC ABG pH ABG pH POC ABG pCO2 POC ABG pO2 ABG pO2 ABG HCO3 ABG Base Excess ABG Hemoglobin VBG pH Oxyhemoglobin Sodium Potassium Chloride Carbon Dioxide BUN Creatinine Glucose POC Glucose 219 H 268 H 278 H Lactic Acid Calcium AST ALT Alkaline Phosphatase CK-MB (CK-2) CK-MB (CK-2) Rel Index Total Protein Albumin TSH Urine WBC (Auto) Salicylates 04/06/17 04/06/17 04/07/17 15:04 22:14 05:09 WBC RBC Hgb Hct MCV MCH RDW Plt Count Lymph % (Auto) [place] % (Auto) Eos % (Auto) Seg Neutrophils % Seg Neuts % (Manual) Lymphocytes % (Manual) Seg Neutrophils # Seg Neutrophils # Man Lymphocytes # (Manual) APTT POC ABG pH ABG pH POC ABG pCO2 POC ABG pO2 ABG pO2 ABG HCO3 ABG Base Excess ABG Hemoglobin VBG pH Oxyhemoglobin Sodium Potassium Chloride Carbon Dioxide BUN Creatinine Glucose POC Glucose 285 H 106 H 334 H Lactic Acid Calcium AST ALT Alkaline Phosphatase CK-MB (CK-2) CK-MB (CK-2) Rel Index Total Protein Albumin TSH Urine WBC (Auto) Salicylates 04/07/17 04/07/17 04/08/17 14:45 21:48 05:28 WBC RBC Hgb Hct MCV MCH RDW Plt Count Lymph % (Auto) [place] % (Auto) Eos % (Auto) Seg Neutrophils % Seg Neuts % (Manual) Lymphocytes % (Manual) Seg Neutrophils # Seg Neutrophils # Man Lymphocytes # (Manual) APTT POC ABG pH ABG pH POC ABG pCO2 POC ABG pO2 ABG pO2 ABG HCO3 ABG Base Excess ABG Hemoglobin VBG pH Oxyhemoglobin Sodium Potassium Chloride Carbon Dioxide BUN Creatinine Glucose POC Glucose 173 H 304 H 314 H Lactic Acid Calcium AST ALT Alkaline Phosphatase CK-MB (CK-2) CK-MB (CK-2) Rel Index Total Protein Albumin TSH Urine WBC (Auto) Salicylates 04/08/17 04/08/17 04/08/17 15:57 16:17 22:21 WBC RBC Hgb Hct MCV MCH RDW Plt Count Lymph % (Auto) [place] % (Auto) Eos % (Auto) Seg Neutrophils % Seg Neuts % (Manual) Lymphocytes % (Manual) Seg Neutrophils # Seg Neutrophils # Man Lymphocytes # (Manual) APTT POC ABG pH ABG pH POC ABG pCO2 POC ABG pO2 ABG pO2 ABG HCO3 ABG Base Excess ABG Hemoglobin VBG pH Oxyhemoglobin Sodium Potassium Chloride Carbon Dioxide BUN Creatinine Glucose POC Glucose 356 H 337 H 323 H Lactic Acid Calcium AST ALT Alkaline Phosphatase CK-MB (CK-2) CK-MB (CK-2) Rel Index Total Protein Albumin TSH Urine WBC (Auto) Salicylates 04/09/17 04/09/17 04/09/17 06:19 15:30 21:52 WBC RBC Hgb Hct MCV MCH RDW Plt Count Lymph % (Auto) [place] % (Auto) Eos % (Auto) Seg Neutrophils % Seg Neuts % (Manual) Lymphocytes % (Manual) Seg Neutrophils # Seg Neutrophils # Man Lymphocytes # (Manual) APTT POC ABG pH ABG pH POC ABG pCO2 POC ABG pO2 ABG pO2 ABG HCO3 ABG Base Excess ABG Hemoglobin VBG pH Oxyhemoglobin Sodium Potassium Chloride Carbon Dioxide BUN Creatinine Glucose POC Glucose 340 H 332 H 341 H Lactic Acid Calcium AST ALT Alkaline Phosphatase CK-MB (CK-2) CK-MB (CK-2) Rel Index Total Protein Albumin TSH Urine WBC (Auto) Salicylates 04/10/17 04/10/17 01:53 05:33 WBC RBC Hgb Hct MCV MCH RDW Plt Count Lymph % (Auto) [place] % (Auto) Eos % (Auto) Seg Neutrophils % Seg Neuts % (Manual) Lymphocytes % (Manual) Seg Neutrophils # Seg Neutrophils # Man Lymphocytes # (Manual) APTT POC ABG pH ABG pH POC ABG pCO2 POC ABG pO2 ABG pO2 ABG HCO3 ABG Base Excess ABG Hemoglobin VBG pH Oxyhemoglobin Sodium Potassium Chloride Carbon Dioxide BUN Creatinine Glucose POC Glucose 261 H 277 H Lactic Acid Calcium AST ALT Alkaline Phosphatase CK-MB (CK-2) CK-MB (CK-2) Rel Index Total Protein Albumin TSH Urine WBC (Auto) Salicylates
[2017-04-10] MEDS: TYLENOL FEEDTUBE PRN (17:43)
[2017-04-11] MEDS: HumuLIN R SUB-Q SCH ×3 (06:09→21:49)
[2017-04-11] MEDS: SYNTHROID PO SCH (06:09)
[2017-04-11] MEDS: PEPCID PO SCH ×2 (09:46→22:00)
[2017-04-11] MEDS: HEPARIN SUB-Q SCH ×2 (09:47→21:06)
--- NOTE | 2017-04-11 13:19 | Progress Note ---
Assessment and Plan 51 y/o male found down, concern for sepsis and now encephalopathic requiring mechanical ventilation. No new recommendations for today. Please see below. 1. continue supportive care 2. 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 I am aware that he is an AND but trach will not fix this problem and is not in my professional opinion the right thing to do for this patient. Most likely he will never be weaned from the vent and will remain in a persistent vegatative state. 3. Overall prognosis continues to be poor. 4. Will not check labs 5. Vitals should be qshift 6. This patient's possibility of awakening from this persistent vegatative is unlikely. The current status is that there has been paper work filed to obtain guardianship so that end of life decisions can be made. Supportive care is reasonable but checking daily labs and doing other invasive things to this patient I do not feel is morally and ethically appropriate. Subjective Date of service: 04/11/17 Principal diagnosis: Acute respiratory failure,encephalopathy Interval history: No acute events. Objective Vital Signs - 12hr 04/11/17 04/11/17 04/11/17 02:01 04:00 04:01 Temperature 97.6 F Pulse Rate 70 92 H 87 Pulse Rate [ From Monitor] Respiratory 14 16 Rate Respiratory Rate [ Generalized] Blood Pressure 149/80 149/80 149/80 O2 Sat by Pulse 100 100 90 Oximetry 04/11/17 04/11/17 04/11/17 06:01 07:53 08:13 Temperature 103.2 F H Pulse Rate 105 H 95 H Pulse Rate [ From Monitor] Respiratory 26 H Rate Respiratory Rate [ Generalized] Blood Pressure 149/80 109/69 O2 Sat by Pulse 100 99 Oximetry 04/11/17 04/11/17 04/11/17 08:21 09:00 09:38 Temperature Pulse Rate 95 H 95 H Pulse Rate [ 86 From Monitor] Respiratory 39 H Rate Respiratory Rate [ Generalized] Blood Pressure 109/69 O2 Sat by Pulse 100 99 97 Oximetry 04/11/17 04/11/17 04/11/17 10:00 11:15 11:41 Temperature 100.0 F H Pulse Rate 95 H 79 Pulse Rate [ From Monitor] Respiratory Rate Respiratory 35 H Rate [ Generalized] Blood Pressure O2 Sat by Pulse 97 Oximetry Constitutional: no acute distress, comatose Eyes: non-icteric ENT: oropharynx moist, other (ETT in position) Neck: supple, no JVD Effort: normal Ascultation: Bilateral: clear, diminished breath sounds Cardiovascular: regular rate and rhythm (no mrg) Gastrointestinal: normoactive bowel sounds, soft, non-tender, non-distended Integumentary: normal Extremities: no cyanosis, no edema, pink and warm Neurologic: pupils equal and round, other (minimal responsive,no posturing, ) Psychiatric: other (unable to obtain) CBC and BMP: 03/29/17 04:32 03/29/17 04:32 ABG, PT/INR, D-dimer: ABG POC ABG pH 7.442 (7.35-7.45) 01/31/17 18:55 ABG pH 7.420 pH Units (7.350-7.450) 01/17/17 04:35 POC ABG pCO2 32.8 (35-45) L 01/31/17 18:55 ABG pCO2 34.5 mm Hg 01/17/17 04:35 POC ABG pO2 82 (80-105) 01/31/17 18:55 ABG pO2 160.3 mm Hg (80.0-90.0) H 01/17/17 04:35 POC ABG HCO3 22.4 01/31/17 18:55 POC ABG Total CO2 23 01/31/17 18:55 POC ABG O2 Sat 97 01/31/17 18:55 ABG O2 Saturation 99.0 % (95.0-99.0) 01/17/17 04:35 PT/INR, D-dimer PT 14.1 Sec. (12.2-14.9) 01/17/17 04:10 INR 1.04 (0.87-1.13) 01/17/17 04:10 Abnormal lab findings: Abnormal Labs 01/09/17 01/09/17 01/09/17 10:16 10:16 10:16 WBC RBC Hgb 9.7 L Hct 28.4 L MCV 76 L MCH 26 L RDW 17.2 H Plt Count 448 H Lymph % (Auto) Wright % (Auto) Eos % (Auto) Seg Neutrophils % 79.5 H Seg Neuts % (Manual) Lymphocytes % (Manual) Seg Neutrophils # Seg Neutrophils # Man Lymphocytes # (Manual) APTT 39.6 H POC ABG pH ABG pH POC ABG pCO2 POC ABG pO2 ABG pO2 ABG HCO3 ABG Base Excess ABG Hemoglobin VBG pH Oxyhemoglobin Sodium 132 L Potassium Chloride 96.7 L Carbon Dioxide 21 L BUN 34 H Creatinine Glucose POC Glucose Lactic Acid Calcium 8.3 L AST ALT Alkaline Phosphatase 151 H CK-MB (CK-2) 7.1 H CK-MB (CK-2) Rel Index 5.2 H Total Protein Albumin 3.3 L TSH Urine WBC (Auto) Salicylates 01/09/17 01/09/17 01/09/17 10:16 10:16 10:16 WBC RBC Hgb Hct MCV MCH RDW Plt Count Lymph % (Auto) Wright % (Auto) Eos % (Auto) Seg Neutrophils % Seg Neuts % (Manual) Lymphocytes % (Manual) Seg Neutrophils # Seg Neutrophils # Man Lymphocytes # (Manual) APTT POC ABG pH ABG pH POC ABG pCO2 POC ABG pO2 ABG pO2 ABG HCO3 ABG Base Excess ABG Hemoglobin VBG pH 7.284 L Oxyhemoglobin Sodium Potassium Chloride Carbon Dioxide BUN Creatinine Glucose POC Glucose Lactic Acid Calcium AST ALT Alkaline Phosphatase CK-MB (CK-2) CK-MB (CK-2) Rel Index Total Protein Albumin TSH 52.800 H Urine WBC (Auto) Salicylates < 0.3 L 01/09/17 01/09/17 01/09/17 10:23 11:14 12:49 WBC RBC Hgb Hct MCV MCH RDW Plt Count Lymph % (Auto) Wright % (Auto) Eos % (Auto) Seg Neutrophils % Seg Neuts % (Manual) Lymphocytes % (Manual) Seg Neutrophils # Seg Neutrophils # Man Lymphocytes # (Manual) APTT POC ABG pH ABG pH POC ABG pCO2 POC ABG pO2 643 H ABG pO2 ABG HCO3 ABG Base Excess ABG Hemoglobin VBG pH Oxyhemoglobin Sodium Potassium Chloride Carbon Dioxide BUN Creatinine Glucose POC Glucose < 40 L Lactic Acid Calcium AST ALT Alkaline Phosphatase CK-MB (CK-2) CK-MB (CK-2) Rel Index Total Protein Albumin TSH Urine WBC (Auto) 61.0 H Salicylates 01/09/17 01/09/17 01/09/17 13:13 14:21 15:09 WBC RBC Hgb Hct MCV MCH RDW Plt Count Lymph % (Auto) Wright % (Auto) Eos % (Auto) Seg Neutrophils % Seg Neuts % (Manual) Lymphocytes % (Manual) Seg Neutrophils # Seg Neutrophils # Man Lymphocytes # (Manual) APTT POC ABG pH ABG pH POC ABG pCO2 POC ABG pO2 ABG pO2 ABG HCO3 ABG Base Excess ABG Hemoglobin VBG pH Oxyhemoglobin Sodium Potassium Chloride Carbon Dioxide BUN Creatinine Glucose POC Glucose 128 H 65 L 120 H Lactic Acid Calcium AST ALT Alkaline Phosphatase CK-MB (CK-2) CK-MB (CK-2) Rel Index Total Protein Albumin TSH Urine WBC (Auto) Salicylates 01/09/17 01/09/17 01/10/17 16:28 17:14 04:30 WBC 24.1 H RBC 3.38 L Hgb 8.5 L Hct 26.0 L MCV 77 L MCH 25 L RDW 17.9 H Plt Count 474 H Lymph % (Auto) Wright % (Auto) Eos % (Auto) Seg Neutrophils % Seg Neuts % (Manual) 88.0 H Lymphocytes % (Manual) 4.0 L Seg Neutrophils # Seg Neutrophils # Man 21.2 H Lymphocytes # (Manual) 1.0 L APTT POC ABG pH ABG pH POC ABG pCO2 POC ABG pO2 ABG pO2 ABG HCO3 ABG Base Excess ABG Hemoglobin VBG pH Oxyhemoglobin Sodium Potassium Chloride Carbon Dioxide BUN Creatinine Glucose POC Glucose 44 L 112 H Lactic Acid Calcium AST ALT Alkaline Phosphatase CK-MB (CK-2) CK-MB (CK-2) Rel Index Total Protein Albumin TSH Urine WBC (Auto) Salicylates 01/10/17 01/10/17 01/10/17 04:30 05:41 05:45 WBC RBC Hgb Hct MCV MCH RDW Plt Count Lymph % (Auto) Wright % (Auto) Eos % (Auto) Seg Neutrophils % Seg Neuts % (Manual) Lymphocytes % (Manual) Seg Neutrophils # Seg Neutrophils # Man Lymphocytes # (Manual) APTT POC ABG pH ABG pH POC ABG pCO2 26.6 L POC ABG pO2 207 H ABG pO2 ABG HCO3 ABG Base Excess ABG Hemoglobin VBG pH Oxyhemoglobin Sodium Potassium Chloride Carbon Dioxide 17 L BUN 27 H Creatinine Glucose POC Glucose 68 L Lactic Acid Calcium 7.5 L AST ALT Alkaline Phosphatase CK-MB (CK-2) CK-MB (CK-2) Rel Index Total Protein Albumin TSH Urine WBC (Auto) Salicylates 01/10/17 01/10/17 01/10/17 07:47 10:50 13:41 WBC RBC Hgb Hct MCV MCH RDW Plt Count Lymph % (Auto) Wright % (Auto) Eos % (Auto) Seg Neutrophils % Seg Neuts % (Manual) Lymphocytes % (Manual) Seg Neutrophils # Seg Neutrophils # Man Lymphocytes # (Manual) APTT POC ABG pH ABG pH POC ABG pCO2 POC ABG pO2 ABG pO2 ABG HCO3 ABG Base Excess ABG Hemoglobin VBG pH Oxyhemoglobin Sodium Potassium Chloride Carbon Dioxide BUN Creatinine Glucose POC Glucose 148 H 165 H 114 H Lactic Acid Calcium AST ALT Alkaline Phosphatase CK-MB (CK-2) CK-MB (CK-2) Rel Index Total Protein Albumin TSH Urine WBC (Auto) Salicylates 01/10/17 01/10/17 01/10/17 20:20 21:39 23:24 WBC RBC Hgb Hct MCV MCH RDW Plt Count Lymph % (Auto) Wright % (Auto) Eos % (Auto) Seg Neutrophils % Seg Neuts % (Manual) Lymphocytes % (Manual) Seg Neutrophils # Seg Neutrophils # Man Lymphocytes # (Manual) APTT POC ABG pH ABG pH POC ABG pCO2 POC ABG pO2 ABG pO2 ABG HCO3 ABG Base Excess ABG Hemoglobin VBG pH Oxyhemoglobin Sodium Potassium Chloride Carbon Dioxide BUN Creatinine Glucose POC Glucose 150 H 175 H 155 H Lactic Acid Calcium AST ALT Alkaline Phosphatase CK-MB (CK-2) CK-MB (CK-2) Rel Index Total Protein Albumin TSH Urine WBC (Auto) Salicylates 01/11/17 01/11/17 01/11/17 00:19 04:06 05:20 WBC 15.2 H RBC 3.40 L Hgb 8.9 L Hct 26.3 L MCV 78 L MCH 26 L RDW 18.6 H Plt Count 462 H Lymph % (Auto) 13.2 L Wright % (Auto) Eos % (Auto) Seg Neutrophils % 80.8 H Seg Neuts % (Manual) Lymphocytes % (Manual) Seg Neutrophils # 12.3 H Seg Neutrophils # Man Lymphocytes # (Manual) APTT POC ABG pH 7.463 H ABG pH POC ABG pCO2 26.2 L POC ABG pO2 185 H ABG pO2 ABG HCO3 ABG Base Excess ABG Hemoglobin VBG pH Oxyhemoglobin Sodium Potassium Chloride Carbon Dioxide BUN Creatinine Glucose POC Glucose 163 H Lactic Acid Calcium AST ALT Alkaline Phosphatase CK-MB (CK-2) CK-MB (CK-2) Rel Index Total Protein Albumin TSH Urine WBC (Auto) Salicylates 01/11/17 01/11/17 01/11/17 05:20 06:21 07:57 WBC RBC Hgb Hct MCV MCH RDW Plt Count Lymph % (Auto) Wright % (Auto) Eos % (Auto) Seg Neutrophils % Seg Neuts % (Manual) Lymphocytes % (Manual) Seg Neutrophils # Seg Neutrophils # Man Lymphocytes # (Manual) APTT POC ABG pH ABG pH POC ABG pCO2 POC ABG pO2 ABG pO2 ABG HCO3 ABG Base Excess ABG Hemoglobin VBG pH Oxyhemoglobin Sodium Potassium 3.4 L Chloride 111.5 H Carbon Dioxide 17 L BUN Creatinine Glucose 147 H POC Glucose 139 H 188 H Lactic Acid Calcium 8.0 L AST ALT Alkaline Phosphatase CK-MB (CK-2) CK-MB (CK-2) Rel Index Total Protein Albumin TSH Urine WBC (Auto) Salicylates 01/11/17 01/11/17 01/11/17 11:46 16:50 23:15 WBC RBC Hgb Hct MCV MCH RDW Plt Count Lymph % (Auto) Wright % (Auto) Eos % (Auto) Seg Neutrophils % Seg Neuts % (Manual) Lymphocytes % (Manual) Seg Neutrophils # Seg Neutrophils # Man Lymphocytes # (Manual) APTT POC ABG pH ABG pH POC ABG pCO2 POC ABG pO2 ABG pO2 ABG HCO3 ABG Base Excess ABG Hemoglobin VBG pH Oxyhemoglobin Sodium Potassium Chloride Carbon Dioxide BUN Creatinine Glucose POC Glucose 199 H 235 H 155 H Lactic Acid Calcium AST ALT Alkaline Phosphatase CK-MB (CK-2) CK-MB (CK-2) Rel Index Total Protein Albumin TSH Urine WBC (Auto) Salicylates 01/12/17 01/12/17 01/12/17 05:02 06:56 14:50 WBC RBC Hgb Hct MCV MCH RDW Plt Count Lymph % (Auto) Wright % (Auto) Eos % (Auto) Seg Neutrophils % Seg Neuts % (Manual) Lymphocytes % (Manual) Seg Neutrophils # Seg Neutrophils # Man Lymphocytes # (Manual) APTT POC ABG pH ABG pH POC ABG pCO2 28.0 L POC ABG pO2 178 H ABG pO2 ABG HCO3 ABG Base Excess ABG Hemoglobin VBG pH Oxyhemoglobin Sodium Potassium Chloride Carbon Dioxide BUN Creatinine Glucose POC Glucose 119 H 164 H Lactic Acid Calcium AST ALT Alkaline Phosphatase CK-MB (CK-2) CK-MB (CK-2) Rel Index Total Protein Albumin TSH Urine WBC (Auto) Salicylates 01/13/17 01/13/17 01/13/17 03:37 03:37 04:26 WBC RBC 3.61 L Hgb 9.3 L Hct 28.0 L MCV 78 L MCH 26 L RDW 18.2 H Plt Count Lymph % (Auto) Wright % (Auto) Eos % (Auto) Seg Neutrophils % Seg Neuts % (Manual) Lymphocytes % (Manual) Seg Neutrophils # Seg Neutrophils # Man Lymphocytes # (Manual) APTT POC ABG pH 7.485 H ABG pH POC ABG pCO2 25.4 L POC ABG pO2 73 L ABG pO2 ABG HCO3 ABG Base Excess ABG Hemoglobin VBG pH Oxyhemoglobin Sodium Potassium Chloride 112.4 H Carbon Dioxide 19 L BUN Creatinine Glucose 118 H POC Glucose Lactic Acid Calcium 8.0 L AST ALT Alkaline Phosphatase CK-MB (CK-2) CK-MB (CK-2) Rel Index Total Protein Albumin TSH Urine WBC (Auto) Salicylates 01/13/17 01/13/17 01/13/17 06:15 11:50 17:31 WBC RBC Hgb Hct MCV MCH RDW Plt Count Lymph % (Auto) Wright % (Auto) Eos % (Auto) Seg Neutrophils % Seg Neuts % (Manual) Lymphocytes % (Manual) Seg Neutrophils # Seg Neutrophils # Man Lymphocytes # (Manual) APTT POC ABG pH ABG pH POC ABG pCO2 POC ABG pO2 ABG pO2 ABG HCO3 ABG Base Excess ABG Hemoglobin VBG pH Oxyhemoglobin Sodium Potassium Chloride Carbon Dioxide BUN Creatinine Glucose POC Glucose 116 H 171 H 203 H Lactic Acid Calcium AST ALT Alkaline Phosphatase CK-MB (CK-2) CK-MB (CK-2) Rel Index Total Protein Albumin TSH Urine WBC (Auto) Salicylates 01/14/17 01/14/17 01/14/17 00:02 04:50 04:50 WBC RBC 3.32 L Hgb 8.5 L Hct 26.1 L MCV 79 L MCH 26 L RDW 18.2 H Plt Count Lymph % (Auto) Wright % (Auto) 9.0 H Eos % (Auto) Seg Neutrophils % Seg Neuts % (Manual) Lymphocytes % (Manual) Seg Neutrophils # Seg Neutrophils # Man Lymphocytes # (Manual) APTT POC ABG pH ABG pH POC ABG pCO2 POC ABG pO2 ABG pO2 ABG HCO3 ABG Base Excess ABG Hemoglobin VBG pH Oxyhemoglobin Sodium Potassium Chloride 112.5 H Carbon Dioxide BUN Creatinine Glucose 149 H POC Glucose 157 H Lactic Acid Calcium 8.1 L AST ALT Alkaline Phosphatase CK-MB (CK-2) CK-MB (CK-2) Rel Index Total Protein Albumin TSH Urine WBC (Auto) Salicylates 01/14/17 01/14/17 01/14/17 05:10 11:27 14:07 WBC RBC Hgb Hct MCV MCH RDW Plt Count Lymph % (Auto) Wright % (Auto) Eos % (Auto) Seg Neutrophils % Seg Neuts % (Manual) Lymphocytes % (Manual) Seg Neutrophils # Seg Neutrophils # Man Lymphocytes # (Manual) APTT POC ABG pH ABG pH POC ABG pCO2 POC ABG pO2 ABG pO2 ABG HCO3 ABG Base Excess ABG Hemoglobin VBG pH Oxyhemoglobin Sodium Potassium Chloride Carbon Dioxide BUN Creatinine Glucose POC Glucose 176 H 147 H Lactic Acid Calcium AST ALT Alkaline Phosphatase CK-MB (CK-2) CK-MB (CK-2) Rel Index Total Protein Albumin TSH Urine WBC (Auto) 53.0 H Salicylates 01/14/17 01/15/17 01/15/17 16:52 00:04 05:26 WBC RBC Hgb Hct MCV MCH RDW Plt Count Lymph % (Auto) Wright % (Auto) Eos % (Auto) Seg Neutrophils % Seg Neuts % (Manual) Lymphocytes % (Manual) Seg Neutrophils # Seg Neutrophils # Man Lymphocytes # (Manual) APTT POC ABG pH ABG pH POC ABG pCO2 POC ABG pO2 ABG pO2 ABG HCO3 ABG Base Excess ABG Hemoglobin VBG pH Oxyhemoglobin Sodium Potassium Chloride Carbon Dioxide BUN Creatinine Glucose POC Glucose 131 H 193 H 215 H Lactic Acid Calcium AST ALT Alkaline Phosphatase CK-MB (CK-2) CK-MB (CK-2) Rel Index Total Protein Albumin TSH Urine WBC (Auto) Salicylates 01/15/17 01/15/17 01/15/17 11:49 17:47 21:33 WBC RBC Hgb Hct MCV MCH RDW Plt Count Lymph % (Auto) Wright % (Auto) Eos % (Auto) Seg Neutrophils % Seg Neuts % (Manual) Lymphocytes % (Manual) Seg Neutrophils # Seg Neutrophils # Man Lymphocytes # (Manual) APTT POC ABG pH ABG pH POC ABG pCO2 POC ABG pO2 ABG pO2 ABG HCO3 ABG Base Excess ABG Hemoglobin VBG pH Oxyhemoglobin Sodium Potassium Chloride Carbon Dioxide BUN Creatinine Glucose POC Glucose 121 H 211 H 275 H Lactic Acid Calcium AST ALT Alkaline Phosphatase CK-MB (CK-2) CK-MB (CK-2) Rel Index Total Protein Albumin TSH Urine WBC (Auto) Salicylates 01/16/17 01/16/17 01/16/17 04:30 05:28 13:45 WBC RBC Hgb Hct MCV MCH RDW Plt Count Lymph % (Auto) Wright % (Auto) Eos % (Auto) Seg Neutrophils % Seg Neuts % (Manual) Lymphocytes % (Manual) Seg Neutrophils # Seg Neutrophils # Man Lymphocytes # (Manual) APTT POC ABG pH ABG pH 7.457 H POC ABG pCO2 POC ABG pO2 ABG pO2 55.1 L ABG HCO3 19.4 L ABG Base Excess -4.0 L ABG Hemoglobin 6.8 L VBG pH Oxyhemoglobin 94.9 L Sodium Potassium Chloride Carbon Dioxide BUN Creatinine Glucose POC Glucose 271 H 236 H Lactic Acid Calcium AST ALT Alkaline Phosphatase CK-MB (CK-2) CK-MB (CK-2) Rel Index Total Protein Albumin TSH Urine WBC (Auto) Salicylates 01/16/17 01/17/17 01/17/17 21:39 04:10 04:10 WBC 4.4 L RBC 2.98 L Hgb 7.7 L Hct 23.3 L MCV 78 L MCH 26 L RDW 18.1 H Plt Count Lymph % (Auto) Wright % (Auto) Eos % (Auto) Seg Neutrophils % Seg Neuts % (Manual) Lymphocytes % (Manual) Seg Neutrophils # Seg Neutrophils # Man Lymphocytes # (Manual) APTT POC ABG pH ABG pH POC ABG pCO2 POC ABG pO2 ABG pO2 ABG HCO3 ABG Base Excess ABG Hemoglobin VBG pH Oxyhemoglobin Sodium Potassium 3.3 L Chloride 108.7 H Carbon Dioxide 20 L BUN 8 L Creatinine Glucose 202 H POC Glucose 258 H Lactic Acid Calcium 7.6 L AST ALT Alkaline Phosphatase CK-MB (CK-2) CK-MB (CK-2) Rel Index Total Protein Albumin TSH Urine WBC (Auto) Salicylates 01/17/17 01/17/17 01/17/17 04:35 12:23 16:01 WBC RBC Hgb Hct MCV MCH RDW Plt Count Lymph % (Auto) Wright % (Auto) Eos % (Auto) Seg Neutrophils % Seg Neuts % (Manual) Lymphocytes % (Manual) Seg Neutrophils # Seg Neutrophils # Man Lymphocytes # (Manual) APTT POC ABG pH ABG pH POC ABG pCO2 POC ABG pO2 ABG pO2 160.3 H ABG HCO3 ABG Base Excess -2.3 L ABG Hemoglobin 7.9 L VBG pH Oxyhemoglobin Sodium Potassium Chloride Carbon Dioxide BUN Creatinine Glucose POC Glucose 321 H 239 H Lactic Acid Calcium AST ALT Alkaline Phosphatase CK-MB (CK-2) CK-MB (CK-2) Rel Index Total Protein Albumin TSH Urine WBC (Auto) Salicylates 01/18/17 01/18/17 01/18/17 05:07 12:09 17:54 WBC RBC Hgb Hct MCV MCH RDW Plt Count Lymph % (Auto) Wright % (Auto) Eos % (Auto) Seg Neutrophils % Seg Neuts % (Manual) Lymphocytes % (Manual) Seg Neutrophils # Seg Neutrophils # Man Lymphocytes # (Manual) APTT POC ABG pH ABG pH POC ABG pCO2 POC ABG pO2 ABG pO2 ABG HCO3 ABG Base Excess ABG Hemoglobin VBG pH Oxyhemoglobin Sodium Potassium Chloride Carbon Dioxide BUN Creatinine Glucose POC Glucose 155 H 203 H 132 H Lactic Acid Calcium AST ALT Alkaline Phosphatase CK-MB (CK-2) CK-MB (CK-2) Rel Index Total Protein Albumin TSH Urine WBC (Auto) Salicylates 01/18/17 01/19/17 01/19/17 23:43 04:28 12:11 WBC RBC Hgb Hct MCV MCH RDW Plt Count Lymph % (Auto) Wright % (Auto) Eos % (Auto) Seg Neutrophils % Seg Neuts % (Manual) Lymphocytes % (Manual) Seg Neutrophils # Seg Neutrophils # Man Lymphocytes # (Manual) APTT POC ABG pH ABG pH POC ABG pCO2 POC ABG pO2 ABG pO2 ABG HCO3 ABG Base Excess ABG Hemoglobin VBG pH Oxyhemoglobin Sodium Potassium Chloride Carbon Dioxide BUN Creatinine Glucose POC Glucose 125 H 182 H 153 H Lactic Acid Calcium AST ALT Alkaline Phosphatase CK-MB (CK-2) CK-MB (CK-2) Rel Index Total Protein Albumin TSH Urine WBC (Auto) Salicylates 01/19/17 01/20/17 01/20/17 17:23 00:12 05:44 WBC RBC Hgb Hct MCV MCH RDW Plt Count Lymph % (Auto) Wright % (Auto) Eos % (Auto) Seg Neutrophils % Seg Neuts % (Manual) Lymphocytes % (Manual) Seg Neutrophils # Seg Neutrophils # Man Lymphocytes # (Manual) APTT POC ABG pH ABG pH POC ABG pCO2 POC ABG pO2 ABG pO2 ABG HCO3 ABG Base Excess ABG Hemoglobin VBG pH Oxyhemoglobin Sodium Potassium Chloride Carbon Dioxide BUN Creatinine Glucose POC Glucose 66 L 139 H 176 H Lactic Acid Calcium AST ALT Alkaline Phosphatase CK-MB (CK-2) CK-MB (CK-2) Rel Index Total Protein Albumin TSH Urine WBC (Auto) Salicylates 01/20/17 01/20/17 01/20/17 11:48 17:42 23:43 WBC RBC Hgb Hct MCV MCH RDW Plt Count Lymph % (Auto) Wright % (Auto) Eos % (Auto) Seg Neutrophils % Seg Neuts % (Manual) Lymphocytes % (Manual) Seg Neutrophils # Seg Neutrophils # Man Lymphocytes # (Manual) APTT POC ABG pH ABG pH POC ABG pCO2 POC ABG pO2 ABG pO2 ABG HCO3 ABG Base Excess ABG Hemoglobin VBG pH Oxyhemoglobin Sodium Potassium Chloride Carbon Dioxide BUN Creatinine Glucose POC Glucose 218 H 132 H 178 H Lactic Acid Calcium AST ALT Alkaline Phosphatase CK-MB (CK-2) CK-MB (CK-2) Rel Index Total Protein Albumin TSH Urine WBC (Auto) Salicylates 01/21/17 01/21/17 01/21/17 05:34 11:17 23:37 WBC RBC Hgb Hct MCV MCH RDW Plt Count Lymph % (Auto) Wright % (Auto) Eos % (Auto) Seg Neutrophils % Seg Neuts % (Manual) Lymphocytes % (Manual) Seg Neutrophils # Seg Neutrophils # Man Lymphocytes # (Manual) APTT POC ABG pH ABG pH POC ABG pCO2 POC ABG pO2 ABG pO2 ABG HCO3 ABG Base Excess ABG Hemoglobin VBG pH Oxyhemoglobin Sodium Potassium Chloride Carbon Dioxide BUN Creatinine Glucose POC Glucose 106 H 213 H 140 H Lactic Acid Calcium AST ALT Alkaline Phosphatase CK-MB (CK-2) CK-MB (CK-2) Rel Index Total Protein Albumin TSH Urine WBC (Auto) Salicylates 01/22/17 01/22/17 01/22/17 04:00 04:00 04:58 WBC RBC 3.26 L Hgb 8.3 L Hct 25.5 L MCV 78 L MCH 25 L RDW 17.9 H Plt Count Lymph % (Auto) Wright % (Auto) 7.9 H Eos % (Auto) 6.2 H Seg Neutrophils % Seg Neuts % (Manual) Lymphocytes % (Manual) Seg Neutrophils # Seg Neutrophils # Man Lymphocytes # (Manual) APTT POC ABG pH ABG pH POC ABG pCO2 POC ABG pO2 ABG pO2 ABG HCO3 ABG Base Excess ABG Hemoglobin VBG pH Oxyhemoglobin Sodium Potassium Chloride 95.5 L Carbon Dioxide 31 H D BUN Creatinine Glucose 134 H POC Glucose 146 H Lactic Acid Calcium AST 44 H ALT Alkaline Phosphatase 379 H CK-MB (CK-2) CK-MB (CK-2) Rel Index Total Protein Albumin 2.7 L TSH Urine WBC (Auto) Salicylates 01/22/17 01/22/17 01/22/17 12:12 18:12 23:39 WBC RBC Hgb Hct MCV MCH RDW Plt Count Lymph % (Auto) Wright % (Auto) Eos % (Auto) Seg Neutrophils % Seg Neuts % (Manual) Lymphocytes % (Manual) Seg Neutrophils # Seg Neutrophils # Man Lymphocytes # (Manual) APTT POC ABG pH ABG pH POC ABG pCO2 POC ABG pO2 ABG pO2 ABG HCO3 ABG Base Excess ABG Hemoglobin VBG pH Oxyhemoglobin Sodium Potassium Chloride Carbon Dioxide BUN Creatinine Glucose POC Glucose 255 H 182 H 134 H Lactic Acid Calcium AST ALT Alkaline Phosphatase CK-MB (CK-2) CK-MB (CK-2) Rel Index Total Protein Albumin TSH Urine WBC (Auto) Salicylates 01/23/17 01/23/17 01/23/17 04:43 12:12 17:36 WBC RBC Hgb Hct MCV MCH RDW Plt Count Lymph % (Auto) Wright % (Auto) Eos % (Auto) Seg Neutrophils % Seg Neuts % (Manual) Lymphocytes % (Manual) Seg Neutrophils # Seg Neutrophils # Man Lymphocytes # (Manual) APTT POC ABG pH ABG pH POC ABG pCO2 POC ABG pO2 ABG pO2 ABG HCO3 ABG Base Excess ABG Hemoglobin VBG pH Oxyhemoglobin Sodium Potassium Chloride Carbon Dioxide BUN Creatinine Glucose POC Glucose 218 H 128 H 156 H Lactic Acid Calcium AST ALT Alkaline Phosphatase CK-MB (CK-2) CK-MB (CK-2) Rel Index Total Protein Albumin TSH Urine WBC (Auto) Salicylates 01/24/17 01/24/17 01/24/17 00:08 05:16 11:40 WBC RBC Hgb Hct MCV MCH RDW Plt Count Lymph % (Auto) Wright % (Auto) Eos % (Auto) Seg Neutrophils % Seg Neuts % (Manual) Lymphocytes % (Manual) Seg Neutrophils # Seg Neutrophils # Man Lymphocytes # (Manual) APTT POC ABG pH ABG pH POC ABG pCO2 POC ABG pO2 ABG pO2 ABG HCO3 ABG Base Excess ABG Hemoglobin VBG pH Oxyhemoglobin Sodium Potassium Chloride Carbon Dioxide BUN Creatinine Glucose POC Glucose 129 H 169 H 187 H Lactic Acid Calcium AST ALT Alkaline Phosphatase CK-MB (CK-2) CK-MB (CK-2) Rel Index Total Protein Albumin TSH Urine WBC (Auto) Salicylates 01/24/17 01/24/17 01/25/17 17:43 23:23 04:56 WBC RBC Hgb Hct MCV MCH RDW Plt Count Lymph % (Auto) Wright % (Auto) Eos % (Auto) Seg Neutrophils % Seg Neuts % (Manual) Lymphocytes % (Manual) Seg Neutrophils # Seg Neutrophils # Man Lymphocytes # (Manual) APTT POC ABG pH ABG pH POC ABG pCO2 POC ABG pO2 ABG pO2 ABG HCO3 ABG Base Excess ABG Hemoglobin VBG pH Oxyhemoglobin Sodium Potassium Chloride Carbon Dioxide BUN Creatinine Glucose POC Glucose 215 H 222 H 210 H Lactic Acid Calcium AST ALT Alkaline Phosphatase CK-MB (CK-2) CK-MB (CK-2) Rel Index Total Protein Albumin TSH Urine WBC (Auto) Salicylates 01/25/17 01/25/17 01/26/17 11:52 17:37 00:02 WBC RBC Hgb Hct MCV MCH RDW Plt Count Lymph % (Auto) Wright % (Auto) Eos % (Auto) Seg Neutrophils % Seg Neuts % (Manual) Lymphocytes % (Manual) Seg Neutrophils # Seg Neutrophils # Man Lymphocytes # (Manual) APTT POC ABG pH ABG pH POC ABG pCO2 POC ABG pO2 ABG pO2 ABG HCO3 ABG Base Excess ABG Hemoglobin VBG pH Oxyhemoglobin Sodium Potassium Chloride Carbon Dioxide BUN Creatinine Glucose POC Glucose 284 H 218 H 192 H Lactic Acid Calcium AST ALT Alkaline Phosphatase CK-MB (CK-2) CK-MB (CK-2) Rel Index Total Protein Albumin TSH Urine WBC (Auto) Salicylates 01/26/17 01/26/17 01/26/17 05:33 12:17 17:50 WBC RBC Hgb Hct MCV MCH RDW Plt Count Lymph % (Auto) Wright % (Auto) Eos % (Auto) Seg Neutrophils % Seg Neuts % (Manual) Lymphocytes % (Manual) Seg Neutrophils # Seg Neutrophils # Man Lymphocytes # (Manual) APTT POC ABG pH ABG pH POC ABG pCO2 POC ABG pO2 ABG pO2 ABG HCO3 ABG Base Excess ABG Hemoglobin VBG pH Oxyhemoglobin Sodium Potassium Chloride Carbon Dioxide BUN Creatinine Glucose POC Glucose 199 H 227 H 229 H Lactic Acid Calcium AST ALT Alkaline Phosphatase CK-MB (CK-2) CK-MB (CK-2) Rel Index Total Protein Albumin TSH Urine WBC (Auto) Salicylates 01/26/17 01/27/17 01/27/17 23:57 05:31 11:42 WBC RBC Hgb Hct MCV MCH RDW Plt Count Lymph % (Auto) Wright % (Auto) Eos % (Auto) Seg Neutrophils % Seg Neuts % (Manual) Lymphocytes % (Manual) Seg Neutrophils # Seg Neutrophils # Man Lymphocytes # (Manual) APTT POC ABG pH ABG pH POC ABG pCO2 POC ABG pO2 ABG pO2 ABG HCO3 ABG Base Excess ABG Hemoglobin VBG pH Oxyhemoglobin Sodium Potassium Chloride Carbon Dioxide BUN Creatinine Glucose POC Glucose 186 H 285 H 260 H Lactic Acid Calcium AST ALT Alkaline Phosphatase CK-MB (CK-2) CK-MB (CK-2) Rel Index Total Protein Albumin TSH Urine WBC (Auto) Salicylates 01/27/17 01/27/17 01/27/17 17:47 23:58 Unknown WBC 12.1 H RBC 3.28 L Hgb 8.5 L Hct 25.5 L MCV 78 L MCH 26 L RDW 16.8 H Plt Count 601 H Lymph % (Auto) Wright % (Auto) Eos % (Auto) Seg Neutrophils % Seg Neuts % (Manual) Lymphocytes % (Manual) Seg Neutrophils # Seg Neutrophils # Man Lymphocytes # (Manual) APTT POC ABG pH ABG pH POC ABG pCO2 POC ABG pO2 ABG pO2 ABG HCO3 ABG Base Excess ABG Hemoglobin VBG pH Oxyhemoglobin Sodium Potassium Chloride Carbon Dioxide BUN Creatinine Glucose POC Glucose 329 H 225 H Lactic Acid Calcium AST ALT Alkaline Phosphatase CK-MB (CK-2) CK-MB (CK-2) Rel Index Total Protein Albumin TSH Urine WBC (Auto) Salicylates 01/27/17 01/28/17 01/28/17 Unknown 03:44 03:44 WBC RBC 3.14 L Hgb 8.2 L Hct 24.1 L MCV 77 L MCH 26 L RDW 16.9 H Plt Count 567 H Lymph % (Auto) Wright % (Auto) Eos % (Auto) Seg Neutrophils % Seg Neuts % (Manual) Lymphocytes % (Manual) Seg Neutrophils # Seg Neutrophils # Man Lymphocytes # (Manual) APTT POC ABG pH ABG pH POC ABG pCO2 POC ABG pO2 ABG pO2 ABG HCO3 ABG Base Excess ABG Hemoglobin VBG pH Oxyhemoglobin Sodium 128 L Potassium 5.4 H Chloride 87.5 L Carbon Dioxide BUN 44 H 42 H Creatinine Glucose 250 H 128 H POC Glucose Lactic Acid Calcium AST ALT Alkaline Phosphatase CK-MB (CK-2) CK-MB (CK-2) Rel Index Total Protein Albumin TSH Urine WBC (Auto) Salicylates 01/28/17 01/28/17 01/28/17 11:43 16:47 17:52 WBC RBC Hgb Hct MCV MCH RDW Plt Count Lymph % (Auto) Wright % (Auto) Eos % (Auto) Seg Neutrophils % Seg Neuts % (Manual) Lymphocytes % (Manual) Seg Neutrophils # Seg Neutrophils # Man Lymphocytes # (Manual) APTT POC ABG pH ABG pH POC ABG pCO2 POC ABG pO2 ABG pO2 ABG HCO3 ABG Base Excess ABG Hemoglobin VBG pH Oxyhemoglobin Sodium Potassium Chloride Carbon Dioxide BUN Creatinine Glucose POC Glucose 351 H 249 H Lactic Acid Calcium AST ALT Alkaline Phosphatase CK-MB (CK-2) CK-MB (CK-2) Rel Index Total Protein Albumin TSH Urine WBC (Auto) > 182.0 H Salicylates 01/29/17 01/29/17 01/29/17 05:25 05:25 09:32 WBC 13.6 H RBC 3.25 L Hgb 8.3 L Hct 25.1 L MCV 77 L MCH 26 L RDW 16.8 H Plt Count 514 H Lymph % (Auto) Wright % (Auto) Eos % (Auto) Seg Neutrophils % Seg Neuts % (Manual) Lymphocytes % (Manual) Seg Neutrophils # Seg Neutrophils # Man Lymphocytes # (Manual) APTT POC ABG pH ABG pH POC ABG pCO2 POC ABG pO2 ABG pO2 ABG HCO3 ABG Base Excess ABG Hemoglobin VBG pH Oxyhemoglobin Sodium Potassium Chloride 97.8 L Carbon Dioxide BUN 34 H Creatinine Glucose 222 H POC Glucose Lactic Acid 2.50 H* Calcium AST ALT Alkaline Phosphatase CK-MB (CK-2) CK-MB (CK-2) Rel Index Total Protein Albumin TSH Urine WBC (Auto) Salicylates 01/29/17 01/29/17 01/29/17 11:56 18:11 23:55 WBC RBC Hgb Hct MCV MCH RDW Plt Count Lymph % (Auto) Wright % (Auto) Eos % (Auto) Seg Neutrophils % Seg Neuts % (Manual) Lymphocytes % (Manual) Seg Neutrophils # Seg Neutrophils # Man Lymphocytes # (Manual) APTT POC ABG pH ABG pH POC ABG pCO2 POC ABG pO2 ABG pO2 ABG HCO3 ABG Base Excess ABG Hemoglobin VBG pH Oxyhemoglobin Sodium Potassium Chloride Carbon Dioxide BUN Creatinine Glucose POC Glucose 261 H 215 H 176 H Lactic Acid Calcium AST ALT Alkaline Phosphatase CK-MB (CK-2) CK-MB (CK-2) Rel Index Total Protein Albumin TSH Urine WBC (Auto) Salicylates 01/30/17 01/30/17 01/30/17 05:31 05:31 05:34 WBC 15.2 H RBC 3.09 L Hgb 7.9 L Hct 23.9 L MCV 77 L MCH 26 L RDW 16.9 H Plt Count 569 H Lymph % (Auto) Wright % (Auto) Eos % (Auto) Seg Neutrophils % Seg Neuts % (Manual) Lymphocytes % (Manual) Seg Neutrophils # Seg Neutrophils # Man Lymphocytes # (Manual) APTT POC ABG pH ABG pH POC ABG pCO2 POC ABG pO2 ABG pO2 ABG HCO3 ABG Base Excess ABG Hemoglobin VBG pH Oxyhemoglobin Sodium Potassium Chloride Carbon Dioxide BUN 24 H Creatinine Glucose 235 H POC Glucose 243 H Lactic Acid Calcium AST ALT Alkaline Phosphatase CK-MB (CK-2) CK-MB (CK-2) Rel Index Total Protein Albumin TSH Urine WBC (Auto) Salicylates 01/30/17 01/30/17 01/30/17 11:38 17:58 23:29 WBC RBC Hgb Hct MCV MCH RDW Plt Count Lymph % (Auto) Wright % (Auto) Eos % (Auto) Seg Neutrophils % Seg Neuts % (Manual) Lymphocytes % (Manual) Seg Neutrophils # Seg Neutrophils # Man Lymphocytes # (Manual) APTT POC ABG pH ABG pH POC ABG pCO2 POC ABG pO2 ABG pO2 ABG HCO3 ABG Base Excess ABG Hemoglobin VBG pH Oxyhemoglobin Sodium Potassium Chloride Carbon Dioxide BUN Creatinine Glucose POC Glucose 298 H 208 H 245 H Lactic Acid Calcium AST ALT Alkaline Phosphatase CK-MB (CK-2) CK-MB (CK-2) Rel Index Total Protein Albumin TSH Urine WBC (Auto) Salicylates 01/31/17 01/31/17 01/31/17 04:39 04:39 05:57 WBC 11.4 H RBC 3.22 L Hgb 8.2 L Hct 24.9 L MCV 78 L MCH 25 L RDW 17.2 H Plt Count 576 H Lymph % (Auto) Wright % (Auto) Eos % (Auto) Seg Neutrophils % Seg Neuts % (Manual) Lymphocytes % (Manual) Seg Neutrophils # Seg Neutrophils # Man Lymphocytes # (Manual) APTT POC ABG pH ABG pH POC ABG pCO2 POC ABG pO2 ABG pO2 ABG HCO3 ABG Base Excess ABG Hemoglobin VBG pH Oxyhemoglobin Sodium Potassium Chloride Carbon Dioxide BUN Creatinine 0.7 L Glucose 223 H POC Glucose 264 H Lactic Acid Calcium AST ALT Alkaline Phosphatase CK-MB (CK-2) CK-MB (CK-2) Rel Index Total Protein Albumin TSH Urine WBC (Auto) Salicylates 01/31/17 01/31/17 01/31/17 12:23 17:41 18:55 WBC RBC Hgb Hct MCV MCH RDW Plt Count Lymph % (Auto) Wright % (Auto) Eos % (Auto) Seg Neutrophils % Seg Neuts % (Manual) Lymphocytes % (Manual) Seg Neutrophils # Seg Neutrophils # Man Lymphocytes # (Manual) APTT POC ABG pH ABG pH POC ABG pCO2 32.8 L POC ABG pO2 ABG pO2 ABG HCO3 ABG Base Excess ABG Hemoglobin VBG pH Oxyhemoglobin Sodium Potassium Chloride Carbon Dioxide BUN Creatinine Glucose POC Glucose 252 H 208 H Lactic Acid Calcium AST ALT Alkaline Phosphatase CK-MB (CK-2) CK-MB (CK-2) Rel Index Total Protein Albumin TSH Urine WBC (Auto) Salicylates 01/31/17 02/01/17 02/01/17 22:59 03:38 03:38 WBC RBC 2.81 L Hgb 7.4 L Hct 22.1 L MCV 79 L MCH 27 L RDW 17.0 H Plt Count 540 H Lymph % (Auto) Wright % (Auto) Eos % (Auto) Seg Neutrophils % Seg Neuts % (Manual) Lymphocytes % (Manual) Seg Neutrophils # Seg Neutrophils # Man Lymphocytes # (Manual) APTT POC ABG pH ABG pH POC ABG pCO2 POC ABG pO2 ABG pO2 ABG HCO3 ABG Base Excess ABG Hemoglobin VBG pH Oxyhemoglobin Sodium Potassium Chloride Carbon Dioxide 21 L BUN Creatinine 0.7 L Glucose POC Glucose 40 L Lactic Acid Calcium AST ALT Alkaline Phosphatase CK-MB (CK-2) CK-MB (CK-2) Rel Index Total Protein Albumin TSH Urine WBC (Auto) Salicylates 02/01/17 02/01/17 02/01/17 05:17 12:19 16:44 WBC RBC Hgb Hct MCV MCH RDW Plt Count Lymph % (Auto) Wright % (Auto) Eos % (Auto) Seg Neutrophils % Seg Neuts % (Manual) Lymphocytes % (Manual) Seg Neutrophils # Seg Neutrophils # Man Lymphocytes # (Manual) APTT POC ABG pH ABG pH POC ABG pCO2 POC ABG pO2 ABG pO2 ABG HCO3 ABG Base Excess ABG Hemoglobin VBG pH Oxyhemoglobin Sodium Potassium Chloride Carbon Dioxide BUN Creatinine Glucose POC Glucose 140 H 213 H 172 H Lactic Acid Calcium AST ALT Alkaline Phosphatase CK-MB (CK-2) CK-MB (CK-2) Rel Index Total Protein Albumin TSH Urine WBC (Auto) Salicylates 02/01/17 02/02/17 02/02/17 23:59 05:14 11:24 WBC RBC Hgb Hct MCV MCH RDW Plt Count Lymph % (Auto) Wright % (Auto) Eos % (Auto) Seg Neutrophils % Seg Neuts % (Manual) Lymphocytes % (Manual) Seg Neutrophils # Seg Neutrophils # Man Lymphocytes # (Manual) APTT POC ABG pH ABG pH POC ABG pCO2 POC ABG pO2 ABG pO2 ABG HCO3 ABG Base Excess ABG Hemoglobin VBG pH Oxyhemoglobin Sodium Potassium Chloride Carbon Dioxide BUN Creatinine Glucose POC Glucose 181 H 194 H 209 H Lactic Acid Calcium AST ALT Alkaline Phosphatase CK-MB (CK-2) CK-MB (CK-2) Rel Index Total Protein Albumin TSH Urine WBC (Auto) Salicylates 02/02/17 02/02/17 02/02/17 11:46 11:46 17:47 WBC RBC 2.94 L Hgb 7.5 L Hct 23.0 L MCV 78 L MCH 25 L RDW 16.9 H Plt Count 520 H Lymph % (Auto) Wright % (Auto) Eos % (Auto) Seg Neutrophils % Seg Neuts % (Manual) Lymphocytes % (Manual) Seg Neutrophils # Seg Neutrophils # Man Lymphocytes # (Manual) APTT POC ABG pH ABG pH POC ABG pCO2 POC ABG pO2 ABG pO2 ABG HCO3 ABG Base Excess ABG Hemoglobin VBG pH Oxyhemoglobin Sodium Potassium Chloride Carbon Dioxide BUN Creatinine 0.6 L Glucose 189 H POC Glucose 147 H Lactic Acid Calcium 8.1 L AST ALT Alkaline Phosphatase CK-MB (CK-2) CK-MB (CK-2) Rel Index Total Protein Albumin TSH Urine WBC (Auto) Salicylates 02/02/17 02/03/17 02/03/17 23:32 05:53 11:19 WBC RBC Hgb Hct MCV MCH RDW Plt Count Lymph % (Auto) Wright % (Auto) Eos % (Auto) Seg Neutrophils % Seg Neuts % (Manual) Lymphocytes % (Manual) Seg Neutrophils # Seg Neutrophils # Man Lymphocytes # (Manual) APTT POC ABG pH ABG pH POC ABG pCO2 POC ABG pO2 ABG pO2 ABG HCO3 ABG Base Excess ABG Hemoglobin VBG pH Oxyhemoglobin Sodium Potassium Chloride Carbon Dioxide BUN Creatinine Glucose POC Glucose 176 H 224 H 228 H Lactic Acid Calcium AST ALT Alkaline Phosphatase CK-MB (CK-2) CK-MB (CK-2) Rel Index Total Protein Albumin TSH Urine WBC (Auto) Salicylates 02/03/17 02/03/17 02/04/17 16:59 23:38 05:45 WBC RBC Hgb Hct MCV MCH RDW Plt Count Lymph % (Auto) Wright % (Auto) Eos % (Auto) Seg Neutrophils % Seg Neuts % (Manual) Lymphocytes % (Manual) Seg Neutrophils # Seg Neutrophils # Man Lymphocytes # (Manual) APTT POC ABG pH ABG pH POC ABG pCO2 POC ABG pO2 ABG pO2 ABG HCO3 ABG Base Excess ABG Hemoglobin VBG pH Oxyhemoglobin Sodium Potassium Chloride Carbon Dioxide BUN Creatinine Glucose POC Glucose 189 H 191 H 251 H Lactic Acid Calcium AST ALT Alkaline Phosphatase CK-MB (CK-2) CK-MB (CK-2) Rel Index Total Protein Albumin TSH Urine WBC (Auto) Salicylates 02/04/17 02/04/17 02/05/17 11:20 17:20 00:17 WBC RBC Hgb Hct MCV MCH RDW Plt Count Lymph % (Auto) Wright % (Auto) Eos % (Auto) Seg Neutrophils % Seg Neuts % (Manual) Lymphocytes % (Manual) Seg Neutrophils # Seg Neutrophils # Man Lymphocytes # (Manual) APTT POC ABG pH ABG pH POC ABG pCO2 POC ABG pO2 ABG pO2 ABG HCO3 ABG Base Excess ABG Hemoglobin VBG pH Oxyhemoglobin Sodium Potassium Chloride Carbon Dioxide BUN Creatinine Glucose POC Glucose 243 H 163 H 200 H Lactic Acid Calcium AST ALT Alkaline Phosphatase CK-MB (CK-2) CK-MB (CK-2) Rel Index Total Protein Albumin TSH Urine WBC (Auto) Salicylates 02/05/17 02/05/17 02/05/17 05:38 12:38 16:29 WBC RBC Hgb Hct MCV MCH RDW Plt Count Lymph % (Auto) Wright % (Auto) Eos % (Auto) Seg Neutrophils % Seg Neuts % (Manual) Lymphocytes % (Manual) Seg Neutrophils # Seg Neutrophils # Man Lymphocytes # (Manual) APTT POC ABG pH ABG pH POC ABG pCO2 POC ABG pO2 ABG pO2 ABG HCO3 ABG Base Excess ABG Hemoglobin VBG pH Oxyhemoglobin Sodium Potassium Chloride Carbon Dioxide BUN Creatinine Glucose POC Glucose 248 H 241 H 257 H Lactic Acid Calcium AST ALT Alkaline Phosphatase CK-MB (CK-2) CK-MB (CK-2) Rel Index Total Protein Albumin TSH Urine WBC (Auto) Salicylates 02/05/17 02/06/17 02/06/17 23:56 05:30 11:50 WBC RBC Hgb Hct MCV MCH RDW Plt Count Lymph % (Auto) Wright % (Auto) Eos % (Auto) Seg Neutrophils % Seg Neuts % (Manual) Lymphocytes % (Manual) Seg Neutrophils # Seg Neutrophils # Man Lymphocytes # (Manual) APTT POC ABG pH ABG pH POC ABG pCO2 POC ABG pO2 ABG pO2 ABG HCO3 ABG Base Excess ABG Hemoglobin VBG pH Oxyhemoglobin Sodium Potassium Chloride Carbon Dioxide BUN Creatinine Glucose POC Glucose 258 H 120 H 254 H Lactic Acid Calcium AST ALT Alkaline Phosphatase CK-MB (CK-2) CK-MB (CK-2) Rel Index Total Protein Albumin TSH Urine WBC (Auto) Salicylates 02/06/17 02/06/17 02/07/17 17:11 23:50 05:22 WBC RBC Hgb Hct MCV MCH RDW Plt Count Lymph % (Auto) Wright % (Auto) Eos % (Auto) Seg Neutrophils % Seg Neuts % (Manual) Lymphocytes % (Manual) Seg Neutrophils # Seg Neutrophils # Man Lymphocytes # (Manual) APTT POC ABG pH ABG pH POC ABG pCO2 POC ABG pO2 ABG pO2 ABG HCO3 ABG Base Excess ABG Hemoglobin VBG pH Oxyhemoglobin Sodium Potassium Chloride Carbon Dioxide BUN Creatinine Glucose POC Glucose 149 H 240 H 258 H Lactic Acid Calcium AST ALT Alkaline Phosphatase CK-MB (CK-2) CK-MB (CK-2) Rel Index Total Protein Albumin TSH Urine WBC (Auto) Salicylates 02/07/17 02/07/17 02/07/17 11:15 18:33 23:59 WBC RBC Hgb Hct MCV MCH RDW Plt Count Lymph % (Auto) Wright % (Auto) Eos % (Auto) Seg Neutrophils % Seg Neuts % (Manual) Lymphocytes % (Manual) Seg Neutrophils # Seg Neutrophils # Man Lymphocytes # (Manual) APTT POC ABG pH ABG pH POC ABG pCO2 POC ABG pO2 ABG pO2 ABG HCO3 ABG Base Excess ABG Hemoglobin VBG pH Oxyhemoglobin Sodium Potassium Chloride Carbon Dioxide BUN Creatinine Glucose POC Glucose 239 H 176 H 186 H Lactic Acid Calcium AST ALT Alkaline Phosphatase CK-MB (CK-2) CK-MB (CK-2) Rel Index Total Protein Albumin TSH Urine WBC (Auto) Salicylates 02/08/17 02/08/17 02/08/17 06:15 11:55 16:55 WBC RBC Hgb Hct MCV MCH RDW Plt Count Lymph % (Auto) Wright % (Auto) Eos % (Auto) Seg Neutrophils % Seg Neuts % (Manual) Lymphocytes % (Manual) Seg Neutrophils # Seg Neutrophils # Man Lymphocytes # (Manual) APTT POC ABG pH ABG pH POC ABG pCO2 POC ABG pO2 ABG pO2 ABG HCO3 ABG Base Excess ABG Hemoglobin VBG pH Oxyhemoglobin Sodium Potassium Chloride Carbon Dioxide BUN Creatinine Glucose POC Glucose 195 H 129 H 246 H Lactic Acid Calcium AST ALT Alkaline Phosphatase CK-MB (CK-2) CK-MB (CK-2) Rel Index Total Protein Albumin TSH Urine WBC (Auto) Salicylates 02/08/17 02/09/17 02/09/17 23:51 05:51 07:24 WBC 14.7 H RBC 3.39 L Hgb 8.9 L Hct 26.4 L MCV 78 L MCH 26 L RDW 18.4 H Plt Count 670 H Lymph % (Auto) 11.8 L Wright % (Auto) Eos % (Auto) Seg Neutrophils % 81.2 H Seg Neuts % (Manual) Lymphocytes % (Manual) Seg Neutrophils # 11.9 H Seg Neutrophils # Man Lymphocytes # (Manual) APTT POC ABG pH ABG pH POC ABG pCO2 POC ABG pO2 ABG pO2 ABG HCO3 ABG Base Excess ABG Hemoglobin VBG pH Oxyhemoglobin Sodium Potassium Chloride Carbon Dioxide BUN Creatinine Glucose POC Glucose 262 H 295 H Lactic Acid Calcium AST ALT Alkaline Phosphatase CK-MB (CK-2) CK-MB (CK-2) Rel Index Total Protein Albumin TSH Urine WBC (Auto) Salicylates 02/09/17 02/09/17 02/09/17 07:24 12:08 18:39 WBC RBC Hgb Hct MCV MCH RDW Plt Count Lymph % (Auto) Wright % (Auto) Eos % (Auto) Seg Neutrophils % Seg Neuts % (Manual) Lymphocytes % (Manual) Seg Neutrophils # Seg Neutrophils # Man Lymphocytes # (Manual) APTT POC ABG pH ABG pH POC ABG pCO2 POC ABG pO2 ABG pO2 ABG HCO3 ABG Base Excess ABG Hemoglobin VBG pH Oxyhemoglobin Sodium Potassium Chloride 95.5 L Carbon Dioxide BUN 52 H Creatinine Glucose 277 H POC Glucose 236 H 151 H Lactic Acid Calcium AST ALT Alkaline Phosphatase CK-MB (CK-2) CK-MB (CK-2) Rel Index Total Protein Albumin TSH Urine WBC (Auto) Salicylates 02/10/17 02/10/17 02/10/17 00:01 05:44 11:21 WBC RBC Hgb Hct MCV MCH RDW Plt Count Lymph % (Auto) Wright % (Auto) Eos % (Auto) Seg Neutrophils % Seg Neuts % (Manual) Lymphocytes % (Manual) Seg Neutrophils # Seg Neutrophils # Man Lymphocytes # (Manual) APTT POC ABG pH ABG pH POC ABG pCO2 POC ABG pO2 ABG pO2 ABG HCO3 ABG Base Excess ABG Hemoglobin VBG pH Oxyhemoglobin Sodium Potassium Chloride Carbon Dioxide BUN Creatinine Glucose POC Glucose 210 H 201 H 233 H Lactic Acid Calcium AST ALT Alkaline Phosphatase CK-MB (CK-2) CK-MB (CK-2) Rel Index Total Protein Albumin TSH Urine WBC (Auto) Salicylates 02/10/17 02/10/17 02/11/17 17:29 23:56 05:24 WBC RBC Hgb Hct MCV MCH RDW Plt Count Lymph % (Auto) Wright % (Auto) Eos % (Auto) Seg Neutrophils % Seg Neuts % (Manual) Lymphocytes % (Manual) Seg Neutrophils # Seg Neutrophils # Man Lymphocytes # (Manual) APTT POC ABG pH ABG pH POC ABG pCO2 POC ABG pO2 ABG pO2 ABG HCO3 ABG Base Excess ABG Hemoglobin VBG pH Oxyhemoglobin Sodium Potassium Chloride Carbon Dioxide BUN Creatinine Glucose POC Glucose 167 H 191 H 135 H Lactic Acid Calcium AST ALT Alkaline Phosphatase CK-MB (CK-2) CK-MB (CK-2) Rel Index Total Protein Albumin TSH Urine WBC (Auto) Salicylates 02/11/17 02/11/17 02/11/17 12:25 17:03 23:59 WBC RBC Hgb Hct MCV MCH RDW Plt Count Lymph % (Auto) Wright % (Auto) Eos % (Auto) Seg Neutrophils % Seg Neuts % (Manual) Lymphocytes % (Manual) Seg Neutrophils # Seg Neutrophils # Man Lymphocytes # (Manual) APTT POC ABG pH ABG pH POC ABG pCO2 POC ABG pO2 ABG pO2 ABG HCO3 ABG Base Excess ABG Hemoglobin VBG pH Oxyhemoglobin Sodium Potassium Chloride Carbon Dioxide BUN Creatinine Glucose POC Glucose 275 H 172 H 215 H Lactic Acid Calcium AST ALT Alkaline Phosphatase CK-MB (CK-2) CK-MB (CK-2) Rel Index Total Protein Albumin TSH Urine WBC (Auto) Salicylates 02/12/17 02/12/17 02/12/17 05:39 11:33 17:55 WBC RBC Hgb Hct MCV MCH RDW Plt Count Lymph % (Auto) Wright % (Auto) Eos % (Auto) Seg Neutrophils % Seg Neuts % (Manual) Lymphocytes % (Manual) Seg Neutrophils # Seg Neutrophils # Man Lymphocytes # (Manual) APTT POC ABG pH ABG pH POC ABG pCO2 POC ABG pO2 ABG pO2 ABG HCO3 ABG Base Excess ABG Hemoglobin VBG pH Oxyhemoglobin Sodium Potassium Chloride Carbon Dioxide BUN Creatinine Glucose POC Glucose 261 H 217 H 172 H Lactic Acid Calcium AST ALT Alkaline Phosphatase CK-MB (CK-2) CK-MB (CK-2) Rel Index Total Protein Albumin TSH Urine WBC (Auto) Salicylates 02/13/17 02/13/17 02/13/17 00:25 06:46 11:26 WBC RBC Hgb Hct MCV MCH RDW Plt Count Lymph % (Auto) Wright % (Auto) Eos % (Auto) Seg Neutrophils % Seg Neuts % (Manual) Lymphocytes % (Manual) Seg Neutrophils # Seg Neutrophils # Man Lymphocytes # (Manual) APTT POC ABG pH ABG pH POC ABG pCO2 POC ABG pO2 ABG pO2 ABG HCO3 ABG Base Excess ABG Hemoglobin VBG pH Oxyhemoglobin Sodium Potassium Chloride Carbon Dioxide BUN Creatinine Glucose POC Glucose 207 H 219 H 231 H Lactic Acid Calcium AST ALT Alkaline Phosphatase CK-MB (CK-2) CK-MB (CK-2) Rel Index Total Protein Albumin TSH Urine WBC (Auto) Salicylates 02/13/17 02/13/17 02/14/17 17:12 23:44 05:44 WBC RBC Hgb Hct MCV MCH RDW Plt Count Lymph % (Auto) Wright % (Auto) Eos % (Auto) Seg Neutrophils % Seg Neuts % (Manual) Lymphocytes % (Manual) Seg Neutrophils # Seg Neutrophils # Man Lymphocytes # (Manual) APTT POC ABG pH ABG pH POC ABG pCO2 POC ABG pO2 ABG pO2 ABG HCO3 ABG Base Excess ABG Hemoglobin VBG pH Oxyhemoglobin Sodium Potassium Chloride Carbon Dioxide BUN Creatinine Glucose POC Glucose 190 H 256 H 184 H Lactic Acid Calcium AST ALT Alkaline Phosphatase CK-MB (CK-2) CK-MB (CK-2) Rel Index Total Protein Albumin TSH Urine WBC (Auto) Salicylates 02/14/17 02/14/17 02/14/17 12:21 17:57 23:18 WBC RBC Hgb Hct MCV MCH RDW Plt Count Lymph % (Auto) Wright % (Auto) Eos % (Auto) Seg Neutrophils % Seg Neuts % (Manual) Lymphocytes % (Manual) Seg Neutrophils # Seg Neutrophils # Man Lymphocytes # (Manual) APTT POC ABG pH ABG pH POC ABG pCO2 POC ABG pO2 ABG pO2 ABG HCO3 ABG Base Excess ABG Hemoglobin VBG pH Oxyhemoglobin Sodium Potassium Chloride Carbon Dioxide BUN Creatinine Glucose POC Glucose 233 H 155 H 165 H Lactic Acid Calcium AST ALT Alkaline Phosphatase CK-MB (CK-2) CK-MB (CK-2) Rel Index Total Protein Albumin TSH Urine WBC (Auto) Salicylates 02/15/17 02/15/17 02/15/17 05:33 11:45 17:20 WBC RBC Hgb Hct MCV MCH RDW Plt Count Lymph % (Auto) Wright % (Auto) Eos % (Auto) Seg Neutrophils % Seg Neuts % (Manual) Lymphocytes % (Manual) Seg Neutrophils # Seg Neutrophils # Man Lymphocytes # (Manual) APTT POC ABG pH ABG pH POC ABG pCO2 POC ABG pO2 ABG pO2 ABG HCO3 ABG Base Excess ABG Hemoglobin VBG pH Oxyhemoglobin Sodium Potassium Chloride Carbon Dioxide BUN Creatinine Glucose POC Glucose 239 H 130 H 189 H Lactic Acid Calcium AST ALT Alkaline Phosphatase CK-MB (CK-2) CK-MB (CK-2) Rel Index Total Protein Albumin TSH Urine WBC (Auto) Salicylates 02/16/17 02/16/17 02/16/17 00:14 05:09 12:31 WBC RBC Hgb Hct MCV MCH RDW Plt Count Lymph % (Auto) Wright % (Auto) Eos % (Auto) Seg Neutrophils % Seg Neuts % (Manual) Lymphocytes % (Manual) Seg Neutrophils # Seg Neutrophils # Man Lymphocytes # (Manual) APTT POC ABG pH ABG pH POC ABG pCO2 POC ABG pO2 ABG pO2 ABG HCO3 ABG Base Excess ABG Hemoglobin VBG pH Oxyhemoglobin Sodium Potassium Chloride Carbon Dioxide BUN Creatinine Glucose POC Glucose 197 H 226 H 178 H Lactic Acid Calcium AST ALT Alkaline Phosphatase CK-MB (CK-2) CK-MB (CK-2) Rel Index Total Protein Albumin TSH Urine WBC (Auto) Salicylates 02/16/17 02/16/17 02/17/17 16:35 23:49 05:37 WBC RBC Hgb Hct MCV MCH RDW Plt Count Lymph % (Auto) Wright % (Auto) Eos % (Auto) Seg Neutrophils % Seg Neuts % (Manual) Lymphocytes % (Manual) Seg Neutrophils # Seg Neutrophils # Man Lymphocytes # (Manual) APTT POC ABG pH ABG pH POC ABG pCO2 POC ABG pO2 ABG pO2 ABG HCO3 ABG Base Excess ABG Hemoglobin VBG pH Oxyhemoglobin Sodium Potassium Chloride Carbon Dioxide BUN Creatinine Glucose POC Glucose 174 H 62 L 153 H Lactic Acid Calcium AST ALT Alkaline Phosphatase CK-MB (CK-2) CK-MB (CK-2) Rel Index Total Protein Albumin TSH Urine WBC (Auto) Salicylates 02/17/17 02/17/17 02/17/17 11:39 17:02 22:24 WBC RBC Hgb Hct MCV MCH RDW Plt Count Lymph % (Auto) Wright % (Auto) Eos % (Auto) Seg Neutrophils % Seg Neuts % (Manual) Lymphocytes % (Manual) Seg Neutrophils # Seg Neutrophils # Man Lymphocytes # (Manual) APTT POC ABG pH ABG pH POC ABG pCO2 POC ABG pO2 ABG pO2 ABG HCO3 ABG Base Excess ABG Hemoglobin VBG pH Oxyhemoglobin Sodium Potassium Chloride Carbon Dioxide BUN Creatinine Glucose POC Glucose 231 H 112 H 116 H Lactic Acid Calcium AST ALT Alkaline Phosphatase CK-MB (CK-2) CK-MB (CK-2) Rel Index Total Protein Albumin TSH Urine WBC (Auto) Salicylates 02/18/17 02/19/17 02/19/17 15:34 05:09 07:57 WBC RBC Hgb Hct MCV MCH RDW Plt Count Lymph % (Auto) Wright % (Auto) Eos % (Auto) Seg Neutrophils % Seg Neuts % (Manual) Lymphocytes % (Manual) Seg Neutrophils # Seg Neutrophils # Man Lymphocytes # (Manual) APTT POC ABG pH ABG pH POC ABG pCO2 POC ABG pO2 ABG pO2 ABG HCO3 ABG Base Excess ABG Hemoglobin VBG pH Oxyhemoglobin Sodium Potassium Chloride Carbon Dioxide BUN Creatinine Glucose POC Glucose 215 H 218 H 283 H Lactic Acid Calcium AST ALT Alkaline Phosphatase CK-MB (CK-2) CK-MB (CK-2) Rel Index Total Protein Albumin TSH Urine WBC (Auto) Salicylates 02/19/17 02/19/17 02/20/17 14:49 22:10 05:10 WBC RBC Hgb Hct MCV MCH RDW Plt Count Lymph % (Auto) Wright % (Auto) Eos % (Auto) Seg Neutrophils % Seg Neuts % (Manual) Lymphocytes % (Manual) Seg Neutrophils # Seg Neutrophils # Man Lymphocytes # (Manual) APTT POC ABG pH ABG pH POC ABG pCO2 POC ABG pO2 ABG pO2 ABG HCO3 ABG Base Excess ABG Hemoglobin VBG pH Oxyhemoglobin Sodium Potassium Chloride Carbon Dioxide BUN Creatinine Glucose POC Glucose 290 H 169 H 209 H Lactic Acid Calcium AST ALT Alkaline Phosphatase CK-MB (CK-2) CK-MB (CK-2) Rel Index Total Protein Albumin TSH Urine WBC (Auto) Salicylates 02/20/17 02/20/17 02/21/17 15:05 21:52 02:00 WBC RBC Hgb Hct MCV MCH RDW Plt Count Lymph % (Auto) Wright % (Auto) Eos % (Auto) Seg Neutrophils % Seg Neuts % (Manual) Lymphocytes % (Manual) Seg Neutrophils # Seg Neutrophils # Man Lymphocytes # (Manual) APTT POC ABG pH ABG pH POC ABG pCO2 POC ABG pO2 ABG pO2 ABG HCO3 ABG Base Excess ABG Hemoglobin VBG pH Oxyhemoglobin Sodium Potassium Chloride Carbon Dioxide BUN Creatinine Glucose POC Glucose 172 H 209 H 216 H Lactic Acid Calcium AST ALT Alkaline Phosphatase CK-MB (CK-2) CK-MB (CK-2) Rel Index Total Protein Albumin TSH Urine WBC (Auto) Salicylates 02/21/17 02/21/17 02/21/17 04:54 14:43 17:47 WBC RBC Hgb Hct MCV MCH RDW Plt Count Lymph % (Auto) Wright % (Auto) Eos % (Auto) Seg Neutrophils % Seg Neuts % (Manual) Lymphocytes % (Manual) Seg Neutrophils # Seg Neutrophils # Man Lymphocytes # (Manual) APTT POC ABG pH ABG pH POC ABG pCO2 POC ABG pO2 ABG pO2 ABG HCO3 ABG Base Excess ABG Hemoglobin VBG pH Oxyhemoglobin Sodium Potassium Chloride Carbon Dioxide BUN Creatinine Glucose POC Glucose 227 H 290 H 220 H Lactic Acid Calcium AST ALT Alkaline Phosphatase CK-MB (CK-2) CK-MB (CK-2) Rel Index Total Protein Albumin TSH Urine WBC (Auto) Salicylates 02/21/17 02/22/17 02/22/17 22:02 04:52 15:25 WBC RBC Hgb Hct MCV MCH RDW Plt Count Lymph % (Auto) Wright % (Auto) Eos % (Auto) Seg Neutrophils % Seg Neuts % (Manual) Lymphocytes % (Manual) Seg Neutrophils # Seg Neutrophils # Man Lymphocytes # (Manual) APTT POC ABG pH ABG pH POC ABG pCO2 POC ABG pO2 ABG pO2 ABG HCO3 ABG Base Excess ABG Hemoglobin VBG pH Oxyhemoglobin Sodium Potassium Chloride Carbon Dioxide BUN Creatinine Glucose POC Glucose 246 H 212 H 236 H Lactic Acid Calcium AST ALT Alkaline Phosphatase CK-MB (CK-2) CK-MB (CK-2) Rel Index Total Protein Albumin TSH Urine WBC (Auto) Salicylates 02/22/17 02/23/17 02/23/17 21:33 06:04 10:00 WBC RBC Hgb Hct MCV MCH RDW Plt Count Lymph % (Auto) Wright % (Auto) Eos % (Auto) Seg Neutrophils % Seg Neuts % (Manual) Lymphocytes % (Manual) Seg Neutrophils # Seg Neutrophils # Man Lymphocytes # (Manual) APTT POC ABG pH ABG pH POC ABG pCO2 POC ABG pO2 ABG pO2 ABG HCO3 ABG Base Excess ABG Hemoglobin VBG pH Oxyhemoglobin Sodium Potassium Chloride Carbon Dioxide BUN Creatinine Glucose POC Glucose 255 H 208 H 174 H Lactic Acid Calcium AST ALT Alkaline Phosphatase CK-MB (CK-2) CK-MB (CK-2) Rel Index Total Protein Albumin TSH Urine WBC (Auto) Salicylates 02/23/17 02/23/17 02/23/17 12:52 17:15 21:51 WBC RBC Hgb Hct MCV MCH RDW Plt Count Lymph % (Auto) Wright % (Auto) Eos % (Auto) Seg Neutrophils % Seg Neuts % (Manual) Lymphocytes % (Manual) Seg Neutrophils # Seg Neutrophils # Man Lymphocytes # (Manual) APTT POC ABG pH ABG pH POC ABG pCO2 POC ABG pO2 ABG pO2 ABG HCO3 ABG Base Excess ABG Hemoglobin VBG pH Oxyhemoglobin Sodium Potassium Chloride Carbon Dioxide BUN Creatinine Glucose POC Glucose 203 H 269 H 205 H Lactic Acid Calcium AST ALT Alkaline Phosphatase CK-MB (CK-2) CK-MB (CK-2) Rel Index Total Protein Albumin TSH Urine WBC (Auto) Salicylates 02/24/17 02/24/17 02/24/17 10:23 17:45 21:24 WBC RBC Hgb Hct MCV MCH RDW Plt Count Lymph % (Auto) Wright % (Auto) Eos % (Auto) Seg Neutrophils % Seg Neuts % (Manual) Lymphocytes % (Manual) Seg Neutrophils # Seg Neutrophils # Man Lymphocytes # (Manual) APTT POC ABG pH ABG pH POC ABG pCO2 POC ABG pO2 ABG pO2 ABG HCO3 ABG Base Excess ABG Hemoglobin VBG pH Oxyhemoglobin Sodium Potassium Chloride Carbon Dioxide BUN Creatinine Glucose POC Glucose 280 H 239 H 254 H Lactic Acid Calcium AST ALT Alkaline Phosphatase CK-MB (CK-2) CK-MB (CK-2) Rel Index Total Protein Albumin TSH Urine WBC (Auto) Salicylates 02/25/17 02/25/17 02/25/17 02:12 05:17 14:32 WBC RBC Hgb Hct MCV MCH RDW Plt Count Lymph % (Auto) Wright % (Auto) Eos % (Auto) Seg Neutrophils % Seg Neuts % (Manual) Lymphocytes % (Manual) Seg Neutrophils # Seg Neutrophils # Man Lymphocytes # (Manual) APTT POC ABG pH ABG pH POC ABG pCO2 POC ABG pO2 ABG pO2 ABG HCO3 ABG Base Excess ABG Hemoglobin VBG pH Oxyhemoglobin Sodium Potassium Chloride Carbon Dioxide BUN Creatinine Glucose POC Glucose 296 H 332 H 353 H Lactic Acid Calcium AST ALT Alkaline Phosphatase CK-MB (CK-2) CK-MB (CK-2) Rel Index Total Protein Albumin TSH Urine WBC (Auto) Salicylates 02/25/17 02/26/17 02/26/17 22:14 00:37 05:52 WBC RBC Hgb Hct MCV MCH RDW Plt Count Lymph % (Auto) Wright % (Auto) Eos % (Auto) Seg Neutrophils % Seg Neuts % (Manual) Lymphocytes % (Manual) Seg Neutrophils # Seg Neutrophils # Man Lymphocytes # (Manual) APTT POC ABG pH ABG pH POC ABG pCO2 POC ABG pO2 ABG pO2 ABG HCO3 ABG Base Excess ABG Hemoglobin VBG pH Oxyhemoglobin Sodium Potassium Chloride Carbon Dioxide BUN Creatinine Glucose POC Glucose 201 H 233 H 269 H Lactic Acid Calcium AST ALT Alkaline Phosphatase CK-MB (CK-2) CK-MB (CK-2) Rel Index Total Protein Albumin TSH Urine WBC (Auto) Salicylates 02/26/17 02/26/17 02/26/17 11:48 13:49 21:26 WBC RBC Hgb Hct MCV MCH RDW Plt Count Lymph % (Auto) Wright % (Auto) Eos % (Auto) Seg Neutrophils % Seg Neuts % (Manual) Lymphocytes % (Manual) Seg Neutrophils # Seg Neutrophils # Man Lymphocytes # (Manual) APTT POC ABG pH ABG pH POC ABG pCO2 POC ABG pO2 ABG pO2 ABG HCO3 ABG Base Excess ABG Hemoglobin VBG pH Oxyhemoglobin Sodium Potassium Chloride Carbon Dioxide BUN Creatinine Glucose POC Glucose 333 H 322 H 244 H Lactic Acid Calcium AST ALT Alkaline Phosphatase CK-MB (CK-2) CK-MB (CK-2) Rel Index Total Protein Albumin TSH Urine WBC (Auto) Salicylates 02/27/17 02/27/17 02/27/17 05:27 13:51 21:48 WBC RBC Hgb Hct MCV MCH RDW Plt Count Lymph % (Auto) Wright % (Auto) Eos % (Auto) Seg Neutrophils % Seg Neuts % (Manual) Lymphocytes % (Manual) Seg Neutrophils # Seg Neutrophils # Man Lymphocytes # (Manual) APTT POC ABG pH ABG pH POC ABG pCO2 POC ABG pO2 ABG pO2 ABG HCO3 ABG Base Excess ABG Hemoglobin VBG pH Oxyhemoglobin Sodium Potassium Chloride Carbon Dioxide BUN Creatinine Glucose POC Glucose 217 H 239 H 254 H Lactic Acid Calcium AST ALT Alkaline Phosphatase CK-MB (CK-2) CK-MB (CK-2) Rel Index Total Protein Albumin TSH Urine WBC (Auto) Salicylates 02/28/17 02/28/17 02/28/17 05:38 11:00 19:44 WBC RBC Hgb Hct MCV MCH RDW Plt Count Lymph % (Auto) Wright % (Auto) Eos % (Auto) Seg Neutrophils % Seg Neuts % (Manual) Lymphocytes % (Manual) Seg Neutrophils # Seg Neutrophils # Man Lymphocytes # (Manual) APTT POC ABG pH ABG pH POC ABG pCO2 POC ABG pO2 ABG pO2 ABG HCO3 ABG Base Excess ABG Hemoglobin VBG pH Oxyhemoglobin Sodium Potassium Chloride Carbon Dioxide BUN Creatinine Glucose POC Glucose 325 H 203 H 116 H Lactic Acid Calcium AST ALT Alkaline Phosphatase CK-MB (CK-2) CK-MB (CK-2) Rel Index Total Protein Albumin TSH Urine WBC (Auto) Salicylates 03/01/17 03/01/17 03/01/17 00:08 05:31 12:17 WBC RBC Hgb Hct MCV MCH RDW Plt Count Lymph % (Auto) Wright % (Auto) Eos % (Auto) Seg Neutrophils % Seg Neuts % (Manual) Lymphocytes % (Manual) Seg Neutrophils # Seg Neutrophils # Man Lymphocytes # (Manual) APTT POC ABG pH ABG pH POC ABG pCO2 POC ABG pO2 ABG pO2 ABG HCO3 ABG Base Excess ABG Hemoglobin VBG pH Oxyhemoglobin Sodium Potassium Chloride Carbon Dioxide BUN Creatinine Glucose POC Glucose 202 H 183 H 184 H Lactic Acid Calcium AST ALT Alkaline Phosphatase CK-MB (CK-2) CK-MB (CK-2) Rel Index Total Protein Albumin TSH Urine WBC (Auto) Salicylates 03/02/17 03/02/17 03/02/17 00:12 05:58 18:22 WBC RBC Hgb Hct MCV MCH RDW Plt Count Lymph % (Auto) Wright % (Auto) Eos % (Auto) Seg Neutrophils % Seg Neuts % (Manual) Lymphocytes % (Manual) Seg Neutrophils # Seg Neutrophils # Man Lymphocytes # (Manual) APTT POC ABG pH ABG pH POC ABG pCO2 POC ABG pO2 ABG pO2 ABG HCO3 ABG Base Excess ABG Hemoglobin VBG pH Oxyhemoglobin Sodium Potassium Chloride Carbon Dioxide BUN Creatinine Glucose POC Glucose 117 H 176 H 156 H Lactic Acid Calcium AST ALT Alkaline Phosphatase CK-MB (CK-2) CK-MB (CK-2) Rel Index Total Protein Albumin TSH Urine WBC (Auto) Salicylates 03/02/17 03/03/17 03/03/17 23:51 05:44 11:32 WBC RBC Hgb Hct MCV MCH RDW Plt Count Lymph % (Auto) Wright % (Auto) Eos % (Auto) Seg Neutrophils % Seg Neuts % (Manual) Lymphocytes % (Manual) Seg Neutrophils # Seg Neutrophils # Man Lymphocytes # (Manual) APTT POC ABG pH ABG pH POC ABG pCO2 POC ABG pO2 ABG pO2 ABG HCO3 ABG Base Excess ABG Hemoglobin VBG pH Oxyhemoglobin Sodium Potassium Chloride Carbon Dioxide BUN Creatinine Glucose POC Glucose 211 H 117 H 133 H Lactic Acid Calcium AST ALT Alkaline Phosphatase CK-MB (CK-2) CK-MB (CK-2) Rel Index Total Protein Albumin TSH Urine WBC (Auto) Salicylates 03/03/17 03/03/17 03/04/17 17:43 23:17 05:30 WBC RBC Hgb Hct MCV MCH RDW Plt Count Lymph % (Auto) Wright % (Auto) Eos % (Auto) Seg Neutrophils % Seg Neuts % (Manual) Lymphocytes % (Manual) Seg Neutrophils # Seg Neutrophils # Man Lymphocytes # (Manual) APTT POC ABG pH ABG pH POC ABG pCO2 POC ABG pO2 ABG pO2 ABG HCO3 ABG Base Excess ABG Hemoglobin VBG pH Oxyhemoglobin Sodium Potassium Chloride Carbon Dioxide BUN Creatinine Glucose POC Glucose 206 H 170 H 126 H Lactic Acid Calcium AST ALT Alkaline Phosphatase CK-MB (CK-2) CK-MB (CK-2) Rel Index Total Protein Albumin TSH Urine WBC (Auto) Salicylates 03/04/17 03/04/17 03/05/17 12:17 17:27 05:20 WBC RBC Hgb Hct MCV MCH RDW Plt Count Lymph % (Auto) Wright % (Auto) Eos % (Auto) Seg Neutrophils % Seg Neuts % (Manual) Lymphocytes % (Manual) Seg Neutrophils # Seg Neutrophils # Man Lymphocytes # (Manual) APTT POC ABG pH ABG pH POC ABG pCO2 POC ABG pO2 ABG pO2 ABG HCO3 ABG Base Excess ABG Hemoglobin VBG pH Oxyhemoglobin Sodium Potassium Chloride Carbon Dioxide BUN Creatinine Glucose POC Glucose 135 H 121 H 185 H Lactic Acid Calcium AST ALT Alkaline Phosphatase CK-MB (CK-2) CK-MB (CK-2) Rel Index Total Protein Albumin TSH Urine WBC (Auto) Salicylates 03/05/17 03/06/17 03/06/17 11:50 11:52 17:34 WBC RBC Hgb Hct MCV MCH RDW Plt Count Lymph % (Auto) Wright % (Auto) Eos % (Auto) Seg Neutrophils % Seg Neuts % (Manual) Lymphocytes % (Manual) Seg Neutrophils # Seg Neutrophils # Man Lymphocytes # (Manual) APTT POC ABG pH ABG pH POC ABG pCO2 POC ABG pO2 ABG pO2 ABG HCO3 ABG Base Excess ABG Hemoglobin VBG pH Oxyhemoglobin Sodium Potassium Chloride Carbon Dioxide BUN Creatinine Glucose POC Glucose 116 H 133 H 181 H Lactic Acid Calcium AST ALT Alkaline Phosphatase CK-MB (CK-2) CK-MB (CK-2) Rel Index Total Protein Albumin TSH Urine WBC (Auto) Salicylates 03/07/17 03/07/17 03/07/17 05:21 11:36 17:49 WBC RBC Hgb Hct MCV MCH RDW Plt Count Lymph % (Auto) Wright % (Auto) Eos % (Auto) Seg Neutrophils % Seg Neuts % (Manual) Lymphocytes % (Manual) Seg Neutrophils # Seg Neutrophils # Man Lymphocytes # (Manual) APTT POC ABG pH ABG pH POC ABG pCO2 POC ABG pO2 ABG pO2 ABG HCO3 ABG Base Excess ABG Hemoglobin VBG pH Oxyhemoglobin Sodium Potassium Chloride Carbon Dioxide BUN Creatinine Glucose POC Glucose 159 H 137 H 158 H Lactic Acid Calcium AST ALT Alkaline Phosphatase CK-MB (CK-2) CK-MB (CK-2) Rel Index Total Protein Albumin TSH Urine WBC (Auto) Salicylates 03/08/17 03/08/17 03/08/17 05:51 13:58 23:50 WBC RBC Hgb Hct MCV MCH RDW Plt Count Lymph % (Auto) Wright % (Auto) Eos % (Auto) Seg Neutrophils % Seg Neuts % (Manual) Lymphocytes % (Manual) Seg Neutrophils # Seg Neutrophils # Man Lymphocytes # (Manual) APTT POC ABG pH ABG pH POC ABG pCO2 POC ABG pO2 ABG pO2 ABG HCO3 ABG Base Excess ABG Hemoglobin VBG pH Oxyhemoglobin Sodium Potassium Chloride Carbon Dioxide BUN Creatinine Glucose POC Glucose 122 H 182 H 114 H Lactic Acid Calcium AST ALT Alkaline Phosphatase CK-MB (CK-2) CK-MB (CK-2) Rel Index Total Protein Albumin TSH Urine WBC (Auto) Salicylates 03/09/17 03/09/17 03/09/17 05:21 05:51 05:51 WBC RBC 3.61 L Hgb 9.5 L Hct 28.3 L MCV 79 L MCH 26 L RDW 17.8 H Plt Count Lymph % (Auto) Wright % (Auto) Eos % (Auto) Seg Neutrophils % Seg Neuts % (Manual) Lymphocytes % (Manual) Seg Neutrophils # Seg Neutrophils # Man Lymphocytes # (Manual) APTT POC ABG pH ABG pH POC ABG pCO2 POC ABG pO2 ABG pO2 ABG HCO3 ABG Base Excess ABG Hemoglobin VBG pH Oxyhemoglobin Sodium 134 L Potassium Chloride 95.5 L Carbon Dioxide BUN 33 H Creatinine 0.5 L Glucose 143 H POC Glucose 153 H Lactic Acid Calcium AST ALT Alkaline Phosphatase CK-MB (CK-2) CK-MB (CK-2) Rel Index Total Protein Albumin TSH Urine WBC (Auto) Salicylates 03/09/17 03/09/17 03/09/17 12:10 18:13 21:00 WBC RBC Hgb Hct MCV MCH RDW Plt Count Lymph % (Auto) Wright % (Auto) Eos % (Auto) Seg Neutrophils % Seg Neuts % (Manual) Lymphocytes % (Manual) Seg Neutrophils # Seg Neutrophils # Man Lymphocytes # (Manual) APTT POC ABG pH ABG pH POC ABG pCO2 POC ABG pO2 ABG pO2 ABG HCO3 ABG Base Excess ABG Hemoglobin VBG pH Oxyhemoglobin Sodium Potassium Chloride Carbon Dioxide BUN Creatinine Glucose POC Glucose 203 H 221 H 198 H Lactic Acid Calcium AST ALT Alkaline Phosphatase CK-MB (CK-2) CK-MB (CK-2) Rel Index Total Protein Albumin TSH Urine WBC (Auto) Salicylates 03/09/17 03/10/17 03/10/17 23:58 05:09 05:09 WBC RBC Hgb 10.3 L Hct 30.5 L MCV 78 L MCH 26 L RDW 17.9 H Plt Count Lymph % (Auto) Wright % (Auto) 10.0 H Eos % (Auto) 6.0 H Seg Neutrophils % Seg Neuts % (Manual) Lymphocytes % (Manual) Seg Neutrophils # Seg Neutrophils # Man Lymphocytes # (Manual) APTT POC ABG pH ABG pH POC ABG pCO2 POC ABG pO2 ABG pO2 ABG HCO3 ABG Base Excess ABG Hemoglobin VBG pH Oxyhemoglobin Sodium 132 L Potassium Chloride 92.2 L Carbon Dioxide BUN 33 H Creatinine 0.5 L Glucose 50 L POC Glucose 167 H Lactic Acid Calcium AST ALT Alkaline Phosphatase CK-MB (CK-2) CK-MB (CK-2) Rel Index Total Protein Albumin TSH Urine WBC (Auto) Salicylates 03/10/17 03/10/17 03/10/17 05:33 05:34 11:48 WBC RBC Hgb Hct MCV MCH RDW Plt Count Lymph % (Auto) Wright % (Auto) Eos % (Auto) Seg Neutrophils % Seg Neuts % (Manual) Lymphocytes % (Manual) Seg Neutrophils # Seg Neutrophils # Man Lymphocytes # (Manual) APTT POC ABG pH ABG pH POC ABG pCO2 POC ABG pO2 ABG pO2 ABG HCO3 ABG Base Excess ABG Hemoglobin VBG pH Oxyhemoglobin Sodium Potassium Chloride Carbon Dioxide BUN Creatinine Glucose POC Glucose 52 L 53 L 148 H Lactic Acid Calcium AST ALT Alkaline Phosphatase CK-MB (CK-2) CK-MB (CK-2) Rel Index Total Protein Albumin TSH Urine WBC (Auto) Salicylates 03/10/17 03/10/17 03/11/17 17:53 23:47 05:18 WBC RBC Hgb Hct MCV MCH RDW Plt Count Lymph % (Auto) Wright % (Auto) Eos % (Auto) Seg Neutrophils % Seg Neuts % (Manual) Lymphocytes % (Manual) Seg Neutrophils # Seg Neutrophils # Man Lymphocytes # (Manual) APTT POC ABG pH ABG pH POC ABG pCO2 POC ABG pO2 ABG pO2 ABG HCO3 ABG Base Excess ABG Hemoglobin VBG pH Oxyhemoglobin Sodium Potassium Chloride Carbon Dioxide BUN Creatinine Glucose POC Glucose 189 H 398 H 126 H Lactic Acid Calcium AST ALT Alkaline Phosphatase CK-MB (CK-2) CK-MB (CK-2) Rel Index Total Protein Albumin TSH Urine WBC (Auto) Salicylates 03/11/17 03/11/17 03/11/17 11:53 17:30 23:10 WBC RBC Hgb Hct MCV MCH RDW Plt Count Lymph % (Auto) Wright % (Auto) Eos % (Auto) Seg Neutrophils % Seg Neuts % (Manual) Lymphocytes % (Manual) Seg Neutrophils # Seg Neutrophils # Man Lymphocytes # (Manual) APTT POC ABG pH ABG pH POC ABG pCO2 POC ABG pO2 ABG pO2 ABG HCO3 ABG Base Excess ABG Hemoglobin VBG pH Oxyhemoglobin Sodium Potassium Chloride Carbon Dioxide BUN Creatinine Glucose POC Glucose 198 H 142 H 244 H Lactic Acid Calcium AST ALT Alkaline Phosphatase CK-MB (CK-2) CK-MB (CK-2) Rel Index Total Protein Albumin TSH Urine WBC (Auto) Salicylates 03/12/17 03/12/17 03/12/17 04:36 11:49 17:23 WBC RBC Hgb Hct MCV MCH RDW Plt Count Lymph % (Auto) Wright % (Auto) Eos % (Auto) Seg Neutrophils % Seg Neuts % (Manual) Lymphocytes % (Manual) Seg Neutrophils # Seg Neutrophils # Man Lymphocytes # (Manual) APTT POC ABG pH ABG pH POC ABG pCO2 POC ABG pO2 ABG pO2 ABG HCO3 ABG Base Excess ABG Hemoglobin VBG pH Oxyhemoglobin Sodium Potassium Chloride Carbon Dioxide BUN Creatinine Glucose POC Glucose 205 H 197 H 209 H Lactic Acid Calcium AST ALT Alkaline Phosphatase CK-MB (CK-2) CK-MB (CK-2) Rel Index Total Protein Albumin TSH Urine WBC (Auto) Salicylates 03/12/17 03/13/17 03/13/17 23:51 05:32 11:43 WBC RBC Hgb Hct MCV MCH RDW Plt Count Lymph % (Auto) Wright % (Auto) Eos % (Auto) Seg Neutrophils % Seg Neuts % (Manual) Lymphocytes % (Manual) Seg Neutrophils # Seg Neutrophils # Man Lymphocytes # (Manual) APTT POC ABG pH ABG pH POC ABG pCO2 POC ABG pO2 ABG pO2 ABG HCO3 ABG Base Excess ABG Hemoglobin VBG pH Oxyhemoglobin Sodium Potassium Chloride Carbon Dioxide BUN Creatinine Glucose POC Glucose 210 H 154 H 164 H Lactic Acid Calcium AST ALT Alkaline Phosphatase CK-MB (CK-2) CK-MB (CK-2) Rel Index Total Protein Albumin TSH Urine WBC (Auto) Salicylates 03/13/17 03/13/17 03/14/17 17:11 23:26 05:42 WBC RBC Hgb Hct MCV MCH RDW Plt Count Lymph % (Auto) Wright % (Auto) Eos % (Auto) Seg Neutrophils % Seg Neuts % (Manual) Lymphocytes % (Manual) Seg Neutrophils # Seg Neutrophils # Man Lymphocytes # (Manual) APTT POC ABG pH ABG pH POC ABG pCO2 POC ABG pO2 ABG pO2 ABG HCO3 ABG Base Excess ABG Hemoglobin VBG pH Oxyhemoglobin Sodium Potassium Chloride Carbon Dioxide BUN Creatinine Glucose POC Glucose 195 H 240 H 230 H Lactic Acid Calcium AST ALT Alkaline Phosphatase CK-MB (CK-2) CK-MB (CK-2) Rel Index Total Protein Albumin TSH Urine WBC (Auto) Salicylates 03/14/17 03/14/17 03/14/17 14:04 17:34 23:42 WBC RBC Hgb Hct MCV MCH RDW Plt Count Lymph % (Auto) Wright % (Auto) Eos % (Auto) Seg Neutrophils % Seg Neuts % (Manual) Lymphocytes % (Manual) Seg Neutrophils # Seg Neutrophils # Man Lymphocytes # (Manual) APTT POC ABG pH ABG pH POC ABG pCO2 POC ABG pO2 ABG pO2 ABG HCO3 ABG Base Excess ABG Hemoglobin VBG pH Oxyhemoglobin Sodium Potassium Chloride Carbon Dioxide BUN Creatinine Glucose POC Glucose 227 H 186 H 225 H Lactic Acid Calcium AST ALT Alkaline Phosphatase CK-MB (CK-2) CK-MB (CK-2) Rel Index Total Protein Albumin TSH Urine WBC (Auto) Salicylates 1203/15/17 03/15/17 05:21 17:13 21:37 WBC RBC Hgb Hct MCV MCH RDW Plt Count Lymph % (Auto) Wright % (Auto) Eos % (Auto) Seg Neutrophils % Seg Neuts % (Manual) Lymphocytes % (Manual) Seg Neutrophils # Seg Neutrophils # Man Lymphocytes # (Manual) APTT POC ABG pH ABG pH POC ABG pCO2 POC ABG pO2 ABG pO2 ABG HCO3 ABG Base Excess ABG Hemoglobin VBG pH Oxyhemoglobin Sodium Potassium Chloride Carbon Dioxide BUN Creatinine Glucose POC Glucose 244 H 203 H 216 H Lactic Acid Calcium AST ALT Alkaline Phosphatase CK-MB (CK-2) CK-MB (CK-2) Rel Index Total Protein Albumin TSH Urine WBC (Auto) Salicylates 03/16/17 03/16/17 03/16/17 05:52 18:07 21:54 WBC RBC Hgb Hct MCV MCH RDW Plt Count Lymph % (Auto) Wright % (Auto) Eos % (Auto) Seg Neutrophils % Seg Neuts % (Manual) Lymphocytes % (Manual) Seg Neutrophils # Seg Neutrophils # Man Lymphocytes # (Manual) APTT POC ABG pH ABG pH POC ABG pCO2 POC ABG pO2 ABG pO2 ABG HCO3 ABG Base Excess ABG Hemoglobin VBG pH Oxyhemoglobin Sodium Potassium Chloride Carbon Dioxide BUN Creatinine Glucose POC Glucose 248 H 254 H 244 H Lactic Acid Calcium AST ALT Alkaline Phosphatase CK-MB (CK-2) CK-MB (CK-2) Rel Index Total Protein Albumin TSH Urine WBC (Auto) Salicylates 03/17/17 03/17/17 03/17/17 07:07 07:42 07:43 WBC RBC Hgb 9.7 L Hct 29.1 L MCV 78 L MCH 26 L RDW 17.4 H Plt Count Lymph % (Auto) Wright % (Auto) Eos % (Auto) Seg Neutrophils % Seg Neuts % (Manual) Lymphocytes % (Manual) Seg Neutrophils # Seg Neutrophils # Man Lymphocytes # (Manual) APTT POC ABG pH ABG pH POC ABG pCO2 POC ABG pO2 ABG pO2 ABG HCO3 ABG Base Excess ABG Hemoglobin VBG pH Oxyhemoglobin Sodium Potassium Chloride 96.6 L Carbon Dioxide BUN 30 H Creatinine 0.5 L Glucose 251 H POC Glucose 222 H Lactic Acid Calcium AST ALT Alkaline Phosphatase CK-MB (CK-2) CK-MB (CK-2) Rel Index Total Protein Albumin TSH Urine WBC (Auto) Salicylates 03/17/17 03/17/17 03/18/17 14:08 21:20 14:24 WBC RBC Hgb Hct MCV MCH RDW Plt Count Lymph % (Auto) Wright % (Auto) Eos % (Auto) Seg Neutrophils % Seg Neuts % (Manual) Lymphocytes % (Manual) Seg Neutrophils # Seg Neutrophils # Man Lymphocytes # (Manual) APTT POC ABG pH ABG pH POC ABG pCO2 POC ABG pO2 ABG pO2 ABG HCO3 ABG Base Excess ABG Hemoglobin VBG pH Oxyhemoglobin Sodium Potassium Chloride Carbon Dioxide BUN Creatinine Glucose POC Glucose 281 H 239 H 195 H Lactic Acid Calcium AST ALT Alkaline Phosphatase CK-MB (CK-2) CK-MB (CK-2) Rel Index Total Protein Albumin TSH Urine WBC (Auto) Salicylates 03/18/17 03/19/17 03/19/17 21:37 04:57 14:23 WBC RBC Hgb Hct MCV MCH RDW Plt Count Lymph % (Auto) Wright % (Auto) Eos % (Auto) Seg Neutrophils % Seg Neuts % (Manual) Lymphocytes % (Manual) Seg Neutrophils # Seg Neutrophils # Man Lymphocytes # (Manual) APTT POC ABG pH ABG pH POC ABG pCO2 POC ABG pO2 ABG pO2 ABG HCO3 ABG Base Excess ABG Hemoglobin VBG pH Oxyhemoglobin Sodium Potassium Chloride Carbon Dioxide BUN Creatinine Glucose POC Glucose 227 H 205 H 277 H Lactic Acid Calcium AST ALT Alkaline Phosphatase CK-MB (CK-2) CK-MB (CK-2) Rel Index Total Protein Albumin TSH Urine WBC (Auto) Salicylates 03/19/17 03/19/17 03/20/17 20:31 21:47 04:55 WBC RBC Hgb Hct MCV MCH RDW Plt Count Lymph % (Auto) Wright % (Auto) Eos % (Auto) Seg Neutrophils % Seg Neuts % (Manual) Lymphocytes % (Manual) Seg Neutrophils # Seg Neutrophils # Man Lymphocytes # (Manual) APTT POC ABG pH ABG pH POC ABG pCO2 POC ABG pO2 ABG pO2 ABG HCO3 ABG Base Excess ABG Hemoglobin VBG pH Oxyhemoglobin Sodium Potassium Chloride Carbon Dioxide BUN Creatinine Glucose POC Glucose 256 H 270 H 202 H Lactic Acid Calcium AST ALT Alkaline Phosphatase CK-MB (CK-2) CK-MB (CK-2) Rel Index Total Protein Albumin TSH Urine WBC (Auto) Salicylates 03/20/17 03/20/17 03/21/17 14:09 21:40 05:09 WBC RBC Hgb Hct MCV MCH RDW Plt Count Lymph % (Auto) Wright % (Auto) Eos % (Auto) Seg Neutrophils % Seg Neuts % (Manual) Lymphocytes % (Manual) Seg Neutrophils # Seg Neutrophils # Man Lymphocytes # (Manual) APTT POC ABG pH ABG pH POC ABG pCO2 POC ABG pO2 ABG pO2 ABG HCO3 ABG Base Excess ABG Hemoglobin VBG pH Oxyhemoglobin Sodium Potassium Chloride Carbon Dioxide BUN Creatinine Glucose POC Glucose 200 H 214 H 233 H Lactic Acid Calcium AST ALT Alkaline Phosphatase CK-MB (CK-2) CK-MB (CK-2) Rel Index Total Protein Albumin TSH Urine WBC (Auto) Salicylates 03/21/17 03/21/17 03/22/17 14:06 21:26 05:43 WBC RBC Hgb Hct MCV MCH RDW Plt Count Lymph % (Auto) Wright % (Auto) Eos % (Auto) Seg Neutrophils % Seg Neuts % (Manual) Lymphocytes % (Manual) Seg Neutrophils # Seg Neutrophils # Man Lymphocytes # (Manual) APTT POC ABG pH ABG pH POC ABG pCO2 POC ABG pO2 ABG pO2 ABG HCO3 ABG Base Excess ABG Hemoglobin VBG pH Oxyhemoglobin Sodium Potassium Chloride Carbon Dioxide BUN Creatinine Glucose POC Glucose 250 H 155 H 251 H Lactic Acid Calcium AST ALT Alkaline Phosphatase CK-MB (CK-2) CK-MB (CK-2) Rel Index Total Protein Albumin TSH Urine WBC (Auto) Salicylates 03/22/17 03/22/17 03/23/17 13:46 21:16 00:23 WBC RBC Hgb Hct MCV MCH RDW Plt Count Lymph % (Auto) Wright % (Auto) Eos % (Auto) Seg Neutrophils % Seg Neuts % (Manual) Lymphocytes % (Manual) Seg Neutrophils # Seg Neutrophils # Man Lymphocytes # (Manual) APTT POC ABG pH ABG pH POC ABG pCO2 POC ABG pO2 ABG pO2 ABG HCO3 ABG Base Excess ABG Hemoglobin VBG pH Oxyhemoglobin Sodium Potassium Chloride Carbon Dioxide BUN Creatinine Glucose POC Glucose 269 H 197 H 126 H Lactic Acid Calcium AST ALT Alkaline Phosphatase CK-MB (CK-2) CK-MB (CK-2) Rel Index Total Protein Albumin TSH Urine WBC (Auto) Salicylates 03/23/17 03/23/17 03/23/17 05:39 14:06 21:39 WBC RBC Hgb Hct MCV MCH RDW Plt Count Lymph % (Auto) Wright % (Auto) Eos % (Auto) Seg Neutrophils % Seg Neuts % (Manual) Lymphocytes % (Manual) Seg Neutrophils # Seg Neutrophils # Man Lymphocytes # (Manual) APTT POC ABG pH ABG pH POC ABG pCO2 POC ABG pO2 ABG pO2 ABG HCO3 ABG Base Excess ABG Hemoglobin VBG pH Oxyhemoglobin Sodium Potassium Chloride Carbon Dioxide BUN Creatinine Glucose POC Glucose 234 H 241 H 248 H Lactic Acid Calcium AST ALT Alkaline Phosphatase CK-MB (CK-2) CK-MB (CK-2) Rel Index Total Protein Albumin TSH Urine WBC (Auto) Salicylates 03/24/17 03/24/17 03/25/17 05:06 21:46 05:38 WBC RBC Hgb Hct MCV MCH RDW Plt Count Lymph % (Auto) Wright % (Auto) Eos % (Auto) Seg Neutrophils % Seg Neuts % (Manual) Lymphocytes % (Manual) Seg Neutrophils # Seg Neutrophils # Man Lymphocytes # (Manual) APTT POC ABG pH ABG pH POC ABG pCO2 POC ABG pO2 ABG pO2 ABG HCO3 ABG Base Excess ABG Hemoglobin VBG pH Oxyhemoglobin Sodium Potassium Chloride Carbon Dioxide BUN Creatinine Glucose POC Glucose 232 H 276 H 242 H Lactic Acid Calcium AST ALT Alkaline Phosphatase CK-MB (CK-2) CK-MB (CK-2) Rel Index Total Protein Albumin TSH Urine WBC (Auto) Salicylates 03/25/17 03/25/17 03/26/17 14:30 23:14 13:53 WBC RBC Hgb Hct MCV MCH RDW Plt Count Lymph % (Auto) Wright % (Auto) Eos % (Auto) Seg Neutrophils % Seg Neuts % (Manual) Lymphocytes % (Manual) Seg Neutrophils # Seg Neutrophils # Man Lymphocytes # (Manual) APTT POC ABG pH ABG pH POC ABG pCO2 POC ABG pO2 ABG pO2 ABG HCO3 ABG Base Excess ABG Hemoglobin VBG pH Oxyhemoglobin Sodium Potassium Chloride Carbon Dioxide BUN Creatinine Glucose POC Glucose 246 H 208 H 195 H Lactic Acid Calcium AST ALT Alkaline Phosphatase CK-MB (CK-2) CK-MB (CK-2) Rel Index Total Protein Albumin TSH Urine WBC (Auto) Salicylates 03/26/17 03/27/17 03/27/17 21:58 05:18 14:57 WBC RBC Hgb Hct MCV MCH RDW Plt Count Lymph % (Auto) Wright % (Auto) Eos % (Auto) Seg Neutrophils % Seg Neuts % (Manual) Lymphocytes % (Manual) Seg Neutrophils # Seg Neutrophils # Man Lymphocytes # (Manual) APTT POC ABG pH ABG pH POC ABG pCO2 POC ABG pO2 ABG pO2 ABG HCO3 ABG Base Excess ABG Hemoglobin VBG pH Oxyhemoglobin Sodium Potassium Chloride Carbon Dioxide BUN Creatinine Glucose POC Glucose 241 H 199 H 269 H Lactic Acid Calcium AST ALT Alkaline Phosphatase CK-MB (CK-2) CK-MB (CK-2) Rel Index Total Protein Albumin TSH Urine WBC (Auto) Salicylates 03/27/17 03/28/17 03/28/17 21:33 13:52 21:29 WBC RBC Hgb Hct MCV MCH RDW Plt Count Lymph % (Auto) [place] % (Auto) Eos % (Auto) Seg Neutrophils % Seg Neuts % (Manual) Lymphocytes % (Manual) Seg Neutrophils # Seg Neutrophils # Man Lymphocytes # (Manual) APTT POC ABG pH ABG pH POC ABG pCO2 POC ABG pO2 ABG pO2 ABG HCO3 ABG Base Excess ABG Hemoglobin VBG pH Oxyhemoglobin Sodium Potassium Chloride Carbon Dioxide BUN Creatinine Glucose POC Glucose 214 H 243 H 286 H Lactic Acid Calcium AST ALT Alkaline Phosphatase CK-MB (CK-2) CK-MB (CK-2) Rel Index Total Protein Albumin TSH Urine WBC (Auto) Salicylates 03/29/17 03/29/17 03/29/17 04:32 04:32 13:58 WBC RBC Hgb 10.6 L Hct 32.9 L MCV 78 L MCH 25 L RDW 17.6 H Plt Count Lymph % (Auto) 38.0 H [place] % (Auto) 9.7 H Eos % (Auto) Seg Neutrophils % Seg Neuts % (Manual) Lymphocytes % (Manual) Seg Neutrophils # Seg Neutrophils # Man Lymphocytes # (Manual) APTT POC ABG pH ABG pH POC ABG pCO2 POC ABG pO2 ABG pO2 ABG HCO3 ABG Base Excess ABG Hemoglobin VBG pH Oxyhemoglobin Sodium 132 L Potassium Chloride 94.0 L Carbon Dioxide BUN 28 H Creatinine 0.5 L Glucose 236 H POC Glucose 171 H Lactic Acid Calcium AST ALT 71 H Alkaline Phosphatase 391 H CK-MB (CK-2) CK-MB (CK-2) Rel Index Total Protein 8.3 H Albumin 2.9 L TSH Urine WBC (Auto) Salicylates 03/29/17 03/30/17 03/30/17 20:59 06:07 11:52 WBC RBC Hgb Hct MCV MCH RDW Plt Count Lymph % (Auto) [place] % (Auto) Eos % (Auto) Seg Neutrophils % Seg Neuts % (Manual) Lymphocytes % (Manual) Seg Neutrophils # Seg Neutrophils # Man Lymphocytes # (Manual) APTT POC ABG pH ABG pH POC ABG pCO2 POC ABG pO2 ABG pO2 ABG HCO3 ABG Base Excess ABG Hemoglobin VBG pH Oxyhemoglobin Sodium Potassium Chloride Carbon Dioxide BUN Creatinine Glucose POC Glucose 215 H 259 H 197 H Lactic Acid Calcium AST ALT Alkaline Phosphatase CK-MB (CK-2) CK-MB (CK-2) Rel Index Total Protein Albumin TSH Urine WBC (Auto) Salicylates 03/30/17 03/31/17 03/31/17 21:34 05:42 14:34 WBC RBC Hgb Hct MCV MCH RDW Plt Count Lymph % (Auto) [place] % (Auto) Eos % (Auto) Seg Neutrophils % Seg Neuts % (Manual) Lymphocytes % (Manual) Seg Neutrophils # Seg Neutrophils # Man Lymphocytes # (Manual) APTT POC ABG pH ABG pH POC ABG pCO2 POC ABG pO2 ABG pO2 ABG HCO3 ABG Base Excess ABG Hemoglobin VBG pH Oxyhemoglobin Sodium Potassium Chloride Carbon Dioxide BUN Creatinine Glucose POC Glucose 207 H 184 H 213 H Lactic Acid Calcium AST ALT Alkaline Phosphatase CK-MB (CK-2) CK-MB (CK-2) Rel Index Total Protein Albumin TSH Urine WBC (Auto) Salicylates 03/31/17 04/01/17 04/01/17 21:32 05:53 13:48 WBC RBC Hgb Hct MCV MCH RDW Plt Count Lymph % (Auto) [place] % (Auto) Eos % (Auto) Seg Neutrophils % Seg Neuts % (Manual) Lymphocytes % (Manual) Seg Neutrophils # Seg Neutrophils # Man Lymphocytes # (Manual) APTT POC ABG pH ABG pH POC ABG pCO2 POC ABG pO2 ABG pO2 ABG HCO3 ABG Base Excess ABG Hemoglobin VBG pH Oxyhemoglobin Sodium Potassium Chloride Carbon Dioxide BUN Creatinine Glucose POC Glucose 249 H 225 H 256 H Lactic Acid Calcium AST ALT Alkaline Phosphatase CK-MB (CK-2) CK-MB (CK-2) Rel Index Total Protein Albumin TSH Urine WBC (Auto) Salicylates 04/01/17 04/02/17 04/02/17 21:34 05:32 14:05 WBC RBC Hgb Hct MCV MCH RDW Plt Count Lymph % (Auto) [place] % (Auto) Eos % (Auto) Seg Neutrophils % Seg Neuts % (Manual) Lymphocytes % (Manual) Seg Neutrophils # Seg Neutrophils # Man Lymphocytes # (Manual) APTT POC ABG pH ABG pH POC ABG pCO2 POC ABG pO2 ABG pO2 ABG HCO3 ABG Base Excess ABG Hemoglobin VBG pH Oxyhemoglobin Sodium Potassium Chloride Carbon Dioxide BUN Creatinine Glucose POC Glucose 292 H 220 H 187 H Lactic Acid Calcium AST ALT Alkaline Phosphatase CK-MB (CK-2) CK-MB (CK-2) Rel Index Total Protein Albumin TSH Urine WBC (Auto) Salicylates 04/02/17 04/03/17 04/03/17 21:57 04:49 14:12 WBC RBC Hgb Hct MCV MCH RDW Plt Count Lymph % (Auto) [place] % (Auto) Eos % (Auto) Seg Neutrophils % Seg Neuts % (Manual) Lymphocytes % (Manual) Seg Neutrophils # Seg Neutrophils # Man Lymphocytes # (Manual) APTT POC ABG pH ABG pH POC ABG pCO2 POC ABG pO2 ABG pO2 ABG HCO3 ABG Base Excess ABG Hemoglobin VBG pH Oxyhemoglobin Sodium Potassium Chloride Carbon Dioxide BUN Creatinine Glucose POC Glucose 285 H 256 H 197 H Lactic Acid Calcium AST ALT Alkaline Phosphatase CK-MB (CK-2) CK-MB (CK-2) Rel Index Total Protein Albumin TSH Urine WBC (Auto) Salicylates 04/03/17 04/04/17 04/04/17 21:11 05:20 13:18 WBC RBC Hgb Hct MCV MCH RDW Plt Count Lymph % (Auto) [place] % (Auto) Eos % (Auto) Seg Neutrophils % Seg Neuts % (Manual) Lymphocytes % (Manual) Seg Neutrophils # Seg Neutrophils # Man Lymphocytes # (Manual) APTT POC ABG pH ABG pH POC ABG pCO2 POC ABG pO2 ABG pO2 ABG HCO3 ABG Base Excess ABG Hemoglobin VBG pH Oxyhemoglobin Sodium Potassium Chloride Carbon Dioxide BUN Creatinine Glucose POC Glucose 166 H 228 H 252 H Lactic Acid Calcium AST ALT Alkaline Phosphatase CK-MB (CK-2) CK-MB (CK-2) Rel Index Total Protein Albumin TSH Urine WBC (Auto) Salicylates 04/04/17 04/05/17 04/05/17 21:51 06:14 09:54 WBC RBC Hgb Hct MCV MCH RDW Plt Count Lymph % (Auto) [place] % (Auto) Eos % (Auto) Seg Neutrophils % Seg Neuts % (Manual) Lymphocytes % (Manual) Seg Neutrophils # Seg Neutrophils # Man Lymphocytes # (Manual) APTT POC ABG pH ABG pH POC ABG pCO2 POC ABG pO2 ABG pO2 ABG HCO3 ABG Base Excess ABG Hemoglobin VBG pH Oxyhemoglobin Sodium Potassium Chloride Carbon Dioxide BUN Creatinine Glucose POC Glucose 252 H 152 H 181 H Lactic Acid Calcium AST ALT Alkaline Phosphatase CK-MB (CK-2) CK-MB (CK-2) Rel Index Total Protein Albumin TSH Urine WBC (Auto) Salicylates 04/05/17 04/05/17 04/05/17 14:49 17:34 21:38 WBC RBC Hgb Hct MCV MCH RDW Plt Count Lymph % (Auto) Wright % (Auto) Eos % (Auto) Seg Neutrophils % Seg Neuts % (Manual) Lymphocytes % (Manual) Seg Neutrophils # Seg Neutrophils # Man Lymphocytes # (Manual) APTT POC ABG pH ABG pH POC ABG pCO2 POC ABG pO2 ABG pO2 ABG HCO3 ABG Base Excess ABG Hemoglobin VBG pH Oxyhemoglobin Sodium Potassium Chloride Carbon Dioxide BUN Creatinine Glucose POC Glucose 219 H 268 H 278 H Lactic Acid Calcium AST ALT Alkaline Phosphatase CK-MB (CK-2) CK-MB (CK-2) Rel Index Total Protein Albumin TSH Urine WBC (Auto) Salicylates 04/06/17 04/06/17 04/07/17 15:04 22:14 05:09 WBC RBC Hgb Hct MCV MCH RDW Plt Count Lymph % (Auto) [place] % (Auto) Eos % (Auto) Seg Neutrophils % Seg Neuts % (Manual) Lymphocytes % (Manual) Seg Neutrophils # Seg Neutrophils # Man Lymphocytes # (Manual) APTT POC ABG pH ABG pH POC ABG pCO2 POC ABG pO2 ABG pO2 ABG HCO3 ABG Base Excess ABG Hemoglobin VBG pH Oxyhemoglobin Sodium Potassium Chloride Carbon Dioxide BUN Creatinine Glucose POC Glucose 285 H 106 H 334 H Lactic Acid Calcium AST ALT Alkaline Phosphatase CK-MB (CK-2) CK-MB (CK-2) Rel Index Total Protein Albumin TSH Urine WBC (Auto) Salicylates 04/07/17 04/07/17 04/08/17 14:45 21:48 05:28 WBC RBC Hgb Hct MCV MCH RDW Plt Count Lymph % (Auto) Wright % (Auto) Eos % (Auto) Seg Neutrophils % Seg Neuts % (Manual) Lymphocytes % (Manual) Seg Neutrophils # Seg Neutrophils # Man Lymphocytes # (Manual) APTT POC ABG pH ABG pH POC ABG pCO2 POC ABG pO2 ABG pO2 ABG HCO3 ABG Base Excess ABG Hemoglobin VBG pH Oxyhemoglobin Sodium Potassium Chloride Carbon Dioxide BUN Creatinine Glucose POC Glucose 173 H 304 H 314 H Lactic Acid Calcium AST ALT Alkaline Phosphatase CK-MB (CK-2) CK-MB (CK-2) Rel Index Total Protein Albumin TSH Urine WBC (Auto) Salicylates 04/08/17 04/08/17 04/08/17 15:57 16:17 22:21 WBC RBC Hgb Hct MCV MCH RDW Plt Count Lymph % (Auto) Wright % (Auto) Eos % (Auto) Seg Neutrophils % Seg Neuts % (Manual) Lymphocytes % (Manual) Seg Neutrophils # Seg Neutrophils # Man Lymphocytes # (Manual) APTT POC ABG pH ABG pH POC ABG pCO2 POC ABG pO2 ABG pO2 ABG HCO3 ABG Base Excess ABG Hemoglobin VBG pH Oxyhemoglobin Sodium Potassium Chloride Carbon Dioxide BUN Creatinine Glucose POC Glucose 356 H 337 H 323 H Lactic Acid Calcium AST ALT Alkaline Phosphatase CK-MB (CK-2) CK-MB (CK-2) Rel Index Total Protein Albumin TSH Urine WBC (Auto) Salicylates 04/09/17 04/09/17 04/09/17 06:19 15:30 21:52 WBC RBC Hgb Hct MCV MCH RDW Plt Count Lymph % (Auto) Wright % (Auto) Eos % (Auto) Seg Neutrophils % Seg Neuts % (Manual) Lymphocytes % (Manual) Seg Neutrophils # Seg Neutrophils # Man Lymphocytes # (Manual) APTT POC ABG pH ABG pH POC ABG pCO2 POC ABG pO2 ABG pO2 ABG HCO3 ABG Base Excess ABG Hemoglobin VBG pH Oxyhemoglobin Sodium Potassium Chloride Carbon Dioxide BUN Creatinine Glucose POC Glucose 340 H 332 H 341 H Lactic Acid Calcium AST ALT Alkaline Phosphatase CK-MB (CK-2) CK-MB (CK-2) Rel Index Total Protein Albumin TSH Urine WBC (Auto) Salicylates 04/10/17 04/10/17 04/10/17 01:53 05:33 17:40 WBC RBC Hgb Hct MCV MCH RDW Plt Count Lymph % (Auto) Wright % (Auto) Eos % (Auto) Seg Neutrophils % Seg Neuts % (Manual) Lymphocytes % (Manual) Seg Neutrophils # Seg Neutrophils # Man Lymphocytes # (Manual) APTT POC ABG pH ABG pH POC ABG pCO2 POC ABG pO2 ABG pO2 ABG HCO3 ABG Base Excess ABG Hemoglobin VBG pH Oxyhemoglobin Sodium Potassium Chloride Carbon Dioxide BUN Creatinine Glucose POC Glucose 261 H 277 H 304 H Lactic Acid Calcium AST ALT Alkaline Phosphatase CK-MB (CK-2) CK-MB (CK-2) Rel Index Total Protein Albumin TSH Urine WBC (Auto) Salicylates 04/10/17 04/11/17 21:29 05:28 WBC RBC Hgb Hct MCV MCH RDW Plt Count Lymph % (Auto) Wright % (Auto) Eos % (Auto) Seg Neutrophils % Seg Neuts % (Manual) Lymphocytes % (Manual) Seg Neutrophils # Seg Neutrophils # Man Lymphocytes # (Manual) APTT POC ABG pH ABG pH POC ABG pCO2 POC ABG pO2 ABG pO2 ABG HCO3 ABG Base Excess ABG Hemoglobin VBG pH Oxyhemoglobin Sodium Potassium Chloride Carbon Dioxide BUN Creatinine Glucose POC Glucose 361 H 204 H Lactic Acid Calcium AST ALT Alkaline Phosphatase CK-MB (CK-2) CK-MB (CK-2) Rel Index Total Protein Albumin TSH Urine WBC (Auto) Salicylates
--- NOTE | 2017-04-11 14:46 | Progress Note ---
Assessment and Plan Assessment and plan: 51 YO Male with CKD,HTN, DM presents to ED after found down and unresponsive by his neighbor, who subsequently called EMS. Upon arrival, patient found unresponsive on the floor with a serum glucose of 21, patient has a known history of alcohol abuse and delirium tremens. The patient was administered D5 approximate 500 mls during transport without change in mental status/level of consciousness. Pt seen and evaluated in ED was was found to be unable to protect his airway. Pt intubated and placed on vent support. Pt found to have evidence of hypothyroidism. He was started on Synthroid. He has since been in the ICU. student support services director try to locate family, even spoke to the family who he lives with. They themselves were unaware of any family members. After ethics committee meeting on the patient. The decision was made to make him DO NOT RESUSCITATE and to transfer him to hospice. Given his very poor prognosis and poor likelihood of recovery. It was decided that was not his best interest to get trach and PEG. Therefore he'll be transferred to the hospice intubated. Now Awaiting on court ordered /state guardianship. Hypoglycemic brain injury Persistent vegetative state Metabolic encephalopathy Hypoglycemia/hypothermia, resolved Acute respiratory failure mechanical ventilator greater than 96 hours UTI with klebsiella, treated ( Cx + on 01/28), then with ESBL likely colonization hyponatremia, Hypothyroidism IDDM Hypertension low grade Fever, resolved - Cont supportive care and current medication. Monitor vitals, repeat cx on - no growth - increased dose of long acting insulin to 15 unit - Patient is DNR- needs guardianship from the state to give consent for further management, as has no family to give consent. 04/08/17: per pulmonology, Dr. Broussard: " Imp: 1. Hypoglycemia/hypothermia -> suspect due to too much insulin 2. Hypothyroidism; doubt myxedema coma with normal free T4 3. Acute respiratory failure, hypoxia 4. UTI/SIRS 5. Metabolic encephalopathy Rec: 1. GI/DVT PPx/TFs 2. Reviewed chart; ethics note 01/18/17 recommended AND and "hospice"; trying to get guardianship to sign necessary orders for this (however, I was told they are not willing to sign for withdrawal of ventilator); further care felt to be futile and would only prolong potential suffering without affecting ultimate outcome 3. Comfort care, no escalation of care; would not check any further labs; would not work him up for infections in setting of fever, only treat w/ Tylenol 4. Poor prognosis Unable to locate family." which I agree with Dr. Ball and poor prognosis Tylenol given for fevers. History Interval history: Patient was seen and examined. Follow-up on current diagnosis. Imaging, nursing note, chart, labs and old chart reviewed. Patient remains intubated Hospitalist Physical - Physical exam Narrative exam: GEN: Severely Gale contacted BMI 15.4, comatose HEENT: NCAT, NG tube and ET tube in place NECK: supple, no adenopathy, no thyromegaly, no JVD CVS/HEART: RRR, NORMAL S1S2, NO JVD, pulses present bilaterally CHEST/LUNGS: Symmetrical chest expansion, good air entry bilaterally GI/Abdomen: soft, ND, good bowel sounds, no guarding or rebound /Bladder: no suprapubic tenderness, no CVA or paraspinal tenderness EXT/Skin: no obvious rash Neuro: comatose, doesn't follow commands Psych: Unresponsive - Constitutional Vitals: Temp Pulse Resp BP Pulse Ox 100.0 F H 79 35 H 109/69 97 04/11/17 11:41 04/11/17 11:15 04/11/17 10:00 04/11/17 08:21 04/11/17 11:15 General appearance: Present: no acute distress, well-nourished Results - Labs CBC & Chem 7: 03/29/17 04:32 03/29/17 04:32 Labs: Laboratory Last Values WBC 6.3 K/mm3 (4.5-11.0) 03/29/17 04:32 RBC 4.23 M/mm3 (3.65-5.03) 03/29/17 04:32 Hgb 10.6 gm/dl (11.8-15.2) L 03/29/17 04:32 Hct 32.9 % (35.5-45.6) L 03/29/17 04:32 MCV 78 fl (84-94) L 03/29/17 04:32 MCH 25 pg (28-32) L 03/29/17 04:32 MCHC 32 % (32-34) 03/29/17 04:32 RDW 17.6 % (13.2-15.2) H 03/29/17 04:32 Plt Count 355 K/mm3 (140-440) 03/29/17 04:32 Lymph % (Auto) 38.0 % (13.4-35.0) H 03/29/17 04:32 [place] % (Auto) 9.7 % (0.0-7.3) H 03/29/17 04:32 Eos % (Auto) 3.1 % (0.0-4.3) 03/29/17 04:32 Baso % (Auto) 0.7 % (0.0-1.8) 03/29/17 04:32 Lymph # 2.4 K/mm3 (1.2-5.4) 03/29/17 04:32 [place] # 0.6 K/mm3 (0.0-0.8) 03/29/17 04:32 Eos # 0.2 K/mm3 (0.0-0.4) 03/29/17 04:32 Baso # 0.0 K/mm3 (0.0-0.1) 03/29/17 04:32 Add Manual Diff Complete 01/10/17 04:30 Total Counted 100 01/10/17 04:30 Seg Neutrophils % 48.5 % (40.0-70.0) 03/29/17 04:32 Seg Neuts % (Manual) 88.0 % (40.0-70.0) H 01/10/17 04:30 Band Neutrophils % 7.0 % 01/10/17 04:30 Lymphocytes % (Manual) 4.0 % (13.4-35.0) L 01/10/17 04:30 Reactive Lymphs % (Man) 0 % 01/10/17 04:30 Monocytes % (Manual) 1.0 % (0.0-7.3) 01/10/17 04:30 Eosinophils % (Manual) 0 % (0.0-4.3) 01/10/17 04:30 Basophils % (Manual) 0 % (0.0-1.8) 01/10/17 04:30 Metamyelocytes % 0 % 01/10/17 04:30 Myelocytes % 0 % 01/10/17 04:30 Promyelocytes % 0 % 01/10/17 04:30 Blast Cells % 0 % 01/10/17 04:30 Nucleated RBC % Not Reportable 01/10/17 04:30 Seg Neutrophils # 3.0 K/mm3 (1.8-7.7) 03/29/17 04:32 Seg Neutrophils # Man 21.2 K/mm3 (1.8-7.7) H 01/10/17 04:30 Band Neutrophils # 1.7 K/mm3 01/10/17 04:30 Lymphocytes # (Manual) 1.0 K/mm3 (1.2-5.4) L 01/10/17 04:30 Abs React Lymphs (Man) 0.0 K/mm3 01/10/17 04:30 Monocytes # (Manual) 0.2 K/mm3 (0.0-0.8) 01/10/17 04:30 Eosinophils # (Manual) 0.0 K/mm3 (0.0-0.4) 01/10/17 04:30 Basophils # (Manual) 0.0 K/mm3 (0.0-0.1) 01/10/17 04:30 Metamyelocytes # 0.0 K/mm3 01/10/17 04:30 Myelocytes # 0.0 K/mm3 01/10/17 04:30 Promyelocytes # 0.0 K/mm3 01/10/17 04:30 Blast Cells # 0.0 K/mm3 01/10/17 04:30 WBC Morphology Not Reportable 01/10/17 04:30 Hypersegmented Neuts Not Reportable 01/10/17 04:30 Hyposegmented Neuts Not Reportable 01/10/17 04:30 Hypogranular Neuts Not Reportable 01/10/17 04:30 Smudge Cells Not Reportable 01/10/17 04:30 Toxic Granulation Not Reportable 01/10/17 04:30 Toxic Vacuolation Not Reportable 01/10/17 04:30 Dohle Bodies Not Reportable 01/10/17 04:30 Pelger-Huet Anomaly Not Reportable 01/10/17 04:30 [place] Rods Not Reportable 01/10/17 04:30 Platelet Estimate Consistent w auto 01/10/17 04:30 Clumped Platelets Not Reportable 01/10/17 04:30 Plt Clumps, EDTA Not Reportable 01/10/17 04:30 Large Platelets Not Reportable 01/10/17 04:30 Giant Platelets Not Reportable 01/10/17 04:30 Platelet Satelliting Not Reportable 01/10/17 04:30 Plt Morphology Comment Not Reportable 01/10/17 04:30 RBC Morphology Not Reportable 01/10/17 04:30 Dimorphic RBCs Not Reportable 01/10/17 04:30 Polychromasia Not Reportable 01/10/17 04:30 Hypochromasia 1+ 01/10/17 04:30 Poikilocytosis Not Reportable 01/10/17 04:30 Anisocytosis Not Reportable 01/10/17 04:30 Microcytosis Not Reportable 01/10/17 04:30 Macrocytosis Not Reportable 01/10/17 04:30 Spherocytes Not Reportable 01/10/17 04:30 Pappenheimer Bodies Not Reportable 01/10/17 04:30 Sickle Cells Not Reportable 01/10/17 04:30 Target Cells Not Reportable 01/10/17 04:30 Tear Drop Cells Not Reportable 01/10/17 04:30 Ovalocytes Not Reportable 01/10/17 04:30 Helmet Cells Not Reportable 01/10/17 04:30 [place] Bodies Not Reportable 01/10/17 04:30 [place] Rings Not Reportable 01/10/17 04:30 [place] Cells Not Reportable 01/10/17 04:30 Bite Cells Not Reportable 01/10/17 04:30 Crenated Cell Not Reportable 01/10/17 04:30 Elliptocytes Not Reportable 01/10/17 04:30 Acanthocytes (Spur) Not Reportable 01/10/17 04:30 Rouleaux Not Reportable 01/10/17 04:30 Hemoglobin C Crystals Not Reportable 01/10/17 04:30 Schistocytes Not Reportable 01/10/17 04:30 Malaria parasites Not Reportable 01/10/17 04:30 [place] Bodies Not Reportable 01/10/17 04:30 Hem Pathologist Commnt No 01/10/17 04:30 PT 14.1 Sec. (12.2-14.9) 01/17/17 04:10 INR 1.04 (0.87-1.13) 01/17/17 04:10 APTT 36.6 Sec. (24.2-36.6) 01/17/17 04:10 POC ABG pH 7.442 (7.35-7.45) 01/31/17 18:55 ABG pH 7.420 pH Units (7.350-7.450) 01/17/17 04:35 POC ABG pCO2 32.8 (35-45) L 01/31/17 18:55 ABG pCO2 34.5 mm Hg 01/17/17 04:35 POC ABG pO2 82 (80-105) 01/31/17 18:55 ABG pO2 160.3 mm Hg (80.0-90.0) H 01/17/17 04:35 POC ABG HCO3 22.4 01/31/17 18:55 ABG HCO3 21.9 mmol/L (20.0-26.0) 01/17/17 04:35 POC ABG Total CO2 23 01/31/17 18:55 POC ABG O2 Sat 97 01/31/17 18:55 ABG O2 Saturation 99.0 % (95.0-99.0) 01/17/17 04:35 ABG O2 Content 11.1 (0.0-44) 01/17/17 04:35 POC ABG Base Excess -2 01/31/17 18:55 ABG Base Excess -2.3 mmol/L (-2.0-3.0) L 01/17/17 04:35 ABG Hemoglobin 7.9 gm/dl (14.0-18.0) L 01/17/17 04:35 ABG Carboxyhemoglobin 1.5 % (0.0-5.0) 01/17/17 04:35 ABG Methemoglobin 0.5 % (0.0-1.5) 01/17/17 04:35 VBG pH 7.284 (7.320-7.420) L 01/09/17 10:16 Oxyhemoglobin 97.1 % (95.0-99.0) 01/17/17 04:35 FiO2 25 % 01/31/17 18:55 Sodium 132 mmol/L (137-145) L 03/29/17 04:32 Potassium 4.5 mmol/L (3.6-5.0) 03/29/17 04:32 Chloride 94.0 mmol/L (98-107) L 03/29/17 04:32 Carbon Dioxide 26 mmol/L (22-30) 03/29/17 04:32 Anion Gap 17 mmol/L 03/29/17 04:32 BUN 28 mg/dL (9-20) H 03/29/17 04:32 Creatinine 0.5 mg/dL (0.8-1.5) L 03/29/17 04:32 Estimated GFR > 60 ml/min 03/29/17 04:32 BUN/Creatinine Ratio 56 % 03/29/17 04:32 Glucose 236 mg/dL (75-100) H 03/29/17 04:32 POC Glucose 204 (70-105) H 04/11/17 05:28 Lactic Acid 0.80 mmol/L (0.7-2.0) 01/30/17 11:49 Calcium 9.2 mg/dL (8.4-10.2) 03/29/17 04:32 Phosphorus 3.10 mg/dL (2.5-4.5) 03/29/17 04:32 Magnesium 1.90 mg/dL (1.7-2.3) 03/29/17 04:32 Total Bilirubin 0.30 mg/dL (0.1-1.2) 03/29/17 04:32 AST 40 units/L (5-40) 03/29/17 04:32 ALT 71 units/L (7-56) H 03/29/17 04:32 Alkaline Phosphatase 391 units/L (35-129) H 03/29/17 04:32 Ammonia 35.0 umol/L (25-60) 01/09/17 10:16 Total Creatine Kinase 135 units/L (55-170) 01/09/17 10:16 CK-MB (CK-2) 7.1 ng/mL (0.0-4.0) H 01/09/17 10:16 CK-MB (CK-2) Rel Index 5.2 (0-4) H 01/09/17 10:16 Troponin T < 0.010 ng/mL (0.00-0.029) 01/09/17 10:16 NT-Pro-B Natriuret Pep 602.9 pg/mL (0-900) 01/09/17 10:16 Total Protein 8.3 g/dL (6.3-8.2) H 03/29/17 04:32 Albumin 2.9 g/dL (3.9-5) L 03/29/17 04:32 Albumin/Globulin Ratio 0.5 % 03/29/17 04:32 TSH 52.800 mlU/mL (0.270-4.200) H 01/09/17 10:16 Free T4 0.78 ng/dL (0.76-1.46) 01/09/17 10:16 Total Cortisol 54.8 mcg/dL () 01/09/17 16:19 Urine Color Yellow (Yellow) 01/28/17 17:52 Urine Turbidity Clear (Clear) 01/28/17 17:52 Urine pH 6.0 (5.0-7.0) 01/28/17 17:52 Ur Specific [place] 1.016 (1.003-1.030) 01/28/17 17:52 Urine Protein 100 mg/dl mg/dL (Negative) 01/28/17 17:52 Urine Glucose (UA) >=500 mg/dL (Negative) 01/28/17 17:52 Urine Ketones Neg mg/dL (Negative) 01/28/17 17:52 Urine Blood Sm (Negative) 01/28/17 17:52 Urine Nitrite Neg (Negative) 01/28/17 17:52 Urine Bilirubin Neg (Negative) 01/28/17 17:52 Urine Urobilinogen < 2.0 mg/dL (<2.0) 01/28/17 17:52 Ur Leukocyte Esterase Lg (Negative) 01/28/17 17:52 Urine WBC (Auto) > 182.0 /HPF (0.0-6.0) H 01/28/17 17:52 Urine RBC (Auto) 113.0 /HPF (0.0-6.0) 01/28/17 17:52 Urine Bacteria (Auto) 2+ /HPF (Negative) 01/28/17 17:52 Urine WBC Clumps 3+ /HPF 01/28/17 17:52 Urine Mucus Few /HPF 01/14/17 14:07 Urine Yeast (Budding) 3+ /HPF 01/14/17 14:07 Salicylates < 0.3 mg/dL (2.8-20.0) L 01/09/17 10:16 Urine Opiates Screen Presumptive negative 01/09/17 10:23 Urine Methadone Screen Presumptive negative 01/09/17 10:23 Acetaminophen < 15.0 ug/mL (10.0-30.0) 01/09/17 10:16 Ur Barbiturates Screen Presumptive negative 01/09/17 10:23 Ur Phencyclidine Scrn Presumptive negative 01/09/17 10:23 Ur Amphetamines Screen Presumptive negative 01/09/17 10:23 U Benzodiazepines Scrn Presumptive negative 01/09/17 10:23 Urine Cocaine Screen Presumptive negative 01/09/17 10:23 U Marijuana (THC) Screen Presumptive negative 01/09/17 10:23 Drugs of Abuse Note Disclamer 01/09/17 10:23 Plasma/Serum Alcohol < 0.01 gm% (0-0.07) 01/09/17 10:16
[2017-04-12] MEDS: SYNTHROID PO SCH (06:10)
[2017-04-12] MEDS: HumuLIN R SUB-Q SCH ×3 (06:11→22:40)
[2017-04-12] MEDS: PEPCID PO SCH ×2 (09:38→22:40)
[2017-04-12] MEDS: HEPARIN SUB-Q SCH ×2 (09:38→22:40)
--- NOTE | 2017-04-12 10:06 | Progress Note ---
Assessment and Plan 51 y/o male found down, concern for sepsis and now encephalopathic requiring mechanical ventilation. No new recommendations for today. Please see below. 1. continue supportive care 2. 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 I am aware that he is an AND but trach will not fix this problem and is not in my professional opinion the right thing to do for this patient. Most likely he will never be weaned from the vent and will remain in a persistent vegatative state. 3. Overall prognosis continues to be poor. 4. Will not check labs 5. Vitals should be qshift 6. This patient's possibility of awakening from this persistent vegatative is unlikely. The current status is that there has been paper work filed to obtain guardianship so that end of life decisions can be made. Supportive care is reasonable but checking daily labs and doing other invasive things to this patient I do not feel is morally and ethically appropriate. Subjective Date of service: 04/12/17 Principal diagnosis: Acute respiratory failure,encephalopathy Interval history: No current change in clinical status. Mental status has not improved. Objective Vital Signs - 12hr 04/11/17 04/12/17 04/12/17 23:53 00:00 02:00 Temperature 99.6 F Pulse Rate 75 80 79 Pulse Rate [ From Monitor] Respiratory 17 16 Rate Blood Pressure 113/72 106/67 106/67 O2 Sat by Pulse 99 99 99 Oximetry 04/12/17 04/12/17 04/12/17 03:17 04:00 04:01 Temperature 100.3 F H Pulse Rate 77 76 Pulse Rate [ From Monitor] Respiratory 16 Rate Blood Pressure 106/67 106/67 O2 Sat by Pulse 99 98 Oximetry 04/12/17 04/12/17 04/12/17 06:01 08:33 09:00 Temperature 98.4 F Pulse Rate 70 Pulse Rate [ 77 From Monitor] Respiratory 18 13 Rate Blood Pressure 106/67 O2 Sat by Pulse 99 99 Oximetry Constitutional: no acute distress, comatose Eyes: non-icteric ENT: oropharynx moist, other (ETT in position) Neck: supple, no JVD Effort: normal Ascultation: Bilateral: clear, diminished breath sounds Cardiovascular: regular rate and rhythm (no mrg) Gastrointestinal: normoactive bowel sounds, soft, non-tender, non-distended Integumentary: normal Extremities: no cyanosis, no edema, pink and warm Neurologic: pupils equal and round, other (minimal responsive,no posturing, ) Psychiatric: other (unable to obtain) CBC and BMP: 03/29/17 04:32 03/29/17 04:32 ABG, PT/INR, D-dimer: ABG POC ABG pH 7.442 (7.35-7.45) 01/31/17 18:55 ABG pH 7.420 pH Units (7.350-7.450) 01/17/17 04:35 POC ABG pCO2 32.8 (35-45) L 01/31/17 18:55 ABG pCO2 34.5 mm Hg 01/17/17 04:35 POC ABG pO2 82 (80-105) 01/31/17 18:55 ABG pO2 160.3 mm Hg (80.0-90.0) H 01/17/17 04:35 POC ABG HCO3 22.4 01/31/17 18:55 POC ABG Total CO2 23 01/31/17 18:55 POC ABG O2 Sat 97 01/31/17 18:55 ABG O2 Saturation 99.0 % (95.0-99.0) 01/17/17 04:35 PT/INR, D-dimer PT 14.1 Sec. (12.2-14.9) 01/17/17 04:10 INR 1.04 (0.87-1.13) 01/17/17 04:10 Abnormal lab findings: Abnormal Labs 01/09/17 01/09/17 01/09/17 10:16 10:16 10:16 WBC RBC Hgb 9.7 L Hct 28.4 L MCV 76 L MCH 26 L RDW 17.2 H Plt Count 448 H Lymph % (Auto) [place] % (Auto) Eos % (Auto) Seg Neutrophils % 79.5 H Seg Neuts % (Manual) Lymphocytes % (Manual) Seg Neutrophils # Seg Neutrophils # Man Lymphocytes # (Manual) APTT 39.6 H POC ABG pH ABG pH POC ABG pCO2 POC ABG pO2 ABG pO2 ABG HCO3 ABG Base Excess ABG Hemoglobin VBG pH Oxyhemoglobin Sodium 132 L Potassium Chloride 96.7 L Carbon Dioxide 21 L BUN 34 H Creatinine Glucose POC Glucose Lactic Acid Calcium 8.3 L AST ALT Alkaline Phosphatase 151 H CK-MB (CK-2) 7.1 H CK-MB (CK-2) Rel Index 5.2 H Total Protein Albumin 3.3 L TSH Urine WBC (Auto) Salicylates 01/09/17 01/09/17 01/09/17 10:16 10:16 10:16 WBC RBC Hgb Hct MCV MCH RDW Plt Count Lymph % (Auto) [place] % (Auto) Eos % (Auto) Seg Neutrophils % Seg Neuts % (Manual) Lymphocytes % (Manual) Seg Neutrophils # Seg Neutrophils # Man Lymphocytes # (Manual) APTT POC ABG pH ABG pH POC ABG pCO2 POC ABG pO2 ABG pO2 ABG HCO3 ABG Base Excess ABG Hemoglobin VBG pH 7.284 L Oxyhemoglobin Sodium Potassium Chloride Carbon Dioxide BUN Creatinine Glucose POC Glucose Lactic Acid Calcium AST ALT Alkaline Phosphatase CK-MB (CK-2) CK-MB (CK-2) Rel Index Total Protein Albumin TSH 52.800 H Urine WBC (Auto) Salicylates < 0.3 L 01/09/17 01/09/17 01/09/17 10:23 11:14 12:49 WBC RBC Hgb Hct MCV MCH RDW Plt Count Lymph % (Auto) [place] % (Auto) Eos % (Auto) Seg Neutrophils % Seg Neuts % (Manual) Lymphocytes % (Manual) Seg Neutrophils # Seg Neutrophils # Man Lymphocytes # (Manual) APTT POC ABG pH ABG pH POC ABG pCO2 POC ABG pO2 643 H ABG pO2 ABG HCO3 ABG Base Excess ABG Hemoglobin VBG pH Oxyhemoglobin Sodium Potassium Chloride Carbon Dioxide BUN Creatinine Glucose POC Glucose < 40 L Lactic Acid Calcium AST ALT Alkaline Phosphatase CK-MB (CK-2) CK-MB (CK-2) Rel Index Total Protein Albumin TSH Urine WBC (Auto) 61.0 H Salicylates 01/09/17 01/09/17 01/09/17 13:13 14:21 15:09 WBC RBC Hgb Hct MCV MCH RDW Plt Count Lymph % (Auto) [place] % (Auto) Eos % (Auto) Seg Neutrophils % Seg Neuts % (Manual) Lymphocytes % (Manual) Seg Neutrophils # Seg Neutrophils # Man Lymphocytes # (Manual) APTT POC ABG pH ABG pH POC ABG pCO2 POC ABG pO2 ABG pO2 ABG HCO3 ABG Base Excess ABG Hemoglobin VBG pH Oxyhemoglobin Sodium Potassium Chloride Carbon Dioxide BUN Creatinine Glucose POC Glucose 128 H 65 L 120 H Lactic Acid Calcium AST ALT Alkaline Phosphatase CK-MB (CK-2) CK-MB (CK-2) Rel Index Total Protein Albumin TSH Urine WBC (Auto) Salicylates 01/09/17 01/09/17 01/10/17 16:28 17:14 04:30 WBC 24.1 H RBC 3.38 L Hgb 8.5 L Hct 26.0 L MCV 77 L MCH 25 L RDW 17.9 H Plt Count 474 H Lymph % (Auto) [place] % (Auto) Eos % (Auto) Seg Neutrophils % Seg Neuts % (Manual) 88.0 H Lymphocytes % (Manual) 4.0 L Seg Neutrophils # Seg Neutrophils # Man 21.2 H Lymphocytes # (Manual) 1.0 L APTT POC ABG pH ABG pH POC ABG pCO2 POC ABG pO2 ABG pO2 ABG HCO3 ABG Base Excess ABG Hemoglobin VBG pH Oxyhemoglobin Sodium Potassium Chloride Carbon Dioxide BUN Creatinine Glucose POC Glucose 44 L 112 H Lactic Acid Calcium AST ALT Alkaline Phosphatase CK-MB (CK-2) CK-MB (CK-2) Rel Index Total Protein Albumin TSH Urine WBC (Auto) Salicylates 01/10/17 01/10/17 01/10/17 04:30 05:41 05:45 WBC RBC Hgb Hct MCV MCH RDW Plt Count Lymph % (Auto) [place] % (Auto) Eos % (Auto) Seg Neutrophils % Seg Neuts % (Manual) Lymphocytes % (Manual) Seg Neutrophils # Seg Neutrophils # Man Lymphocytes # (Manual) APTT POC ABG pH ABG pH POC ABG pCO2 26.6 L POC ABG pO2 207 H ABG pO2 ABG HCO3 ABG Base Excess ABG Hemoglobin VBG pH Oxyhemoglobin Sodium Potassium Chloride Carbon Dioxide 17 L BUN 27 H Creatinine Glucose POC Glucose 68 L Lactic Acid Calcium 7.5 L AST ALT Alkaline Phosphatase CK-MB (CK-2) CK-MB (CK-2) Rel Index Total Protein Albumin TSH Urine WBC (Auto) Salicylates 01/10/17 01/10/17 01/10/17 07:47 10:50 13:41 WBC RBC Hgb Hct MCV MCH RDW Plt Count Lymph % (Auto) [place] % (Auto) Eos % (Auto) Seg Neutrophils % Seg Neuts % (Manual) Lymphocytes % (Manual) Seg Neutrophils # Seg Neutrophils # Man Lymphocytes # (Manual) APTT POC ABG pH ABG pH POC ABG pCO2 POC ABG pO2 ABG pO2 ABG HCO3 ABG Base Excess ABG Hemoglobin VBG pH Oxyhemoglobin Sodium Potassium Chloride Carbon Dioxide BUN Creatinine Glucose POC Glucose 148 H 165 H 114 H Lactic Acid Calcium AST ALT Alkaline Phosphatase CK-MB (CK-2) CK-MB (CK-2) Rel Index Total Protein Albumin TSH Urine WBC (Auto) Salicylates 01/10/17 01/10/17 01/10/17 20:20 21:39 23:24 WBC RBC Hgb Hct MCV MCH RDW Plt Count Lymph % (Auto) [place] % (Auto) Eos % (Auto) Seg Neutrophils % Seg Neuts % (Manual) Lymphocytes % (Manual) Seg Neutrophils # Seg Neutrophils # Man Lymphocytes # (Manual) APTT POC ABG pH ABG pH POC ABG pCO2 POC ABG pO2 ABG pO2 ABG HCO3 ABG Base Excess ABG Hemoglobin VBG pH Oxyhemoglobin Sodium Potassium Chloride Carbon Dioxide BUN Creatinine Glucose POC Glucose 150 H 175 H 155 H Lactic Acid Calcium AST ALT Alkaline Phosphatase CK-MB (CK-2) CK-MB (CK-2) Rel Index Total Protein Albumin TSH Urine WBC (Auto) Salicylates 01/11/17 01/11/17 01/11/17 00:19 04:06 05:20 WBC 15.2 H RBC 3.40 L Hgb 8.9 L Hct 26.3 L MCV 78 L MCH 26 L RDW 18.6 H Plt Count 462 H Lymph % (Auto) 13.2 L [place] % (Auto) Eos % (Auto) Seg Neutrophils % 80.8 H Seg Neuts % (Manual) Lymphocytes % (Manual) Seg Neutrophils # 12.3 H Seg Neutrophils # Man Lymphocytes # (Manual) APTT POC ABG pH 7.463 H ABG pH POC ABG pCO2 26.2 L POC ABG pO2 185 H ABG pO2 ABG HCO3 ABG Base Excess ABG Hemoglobin VBG pH Oxyhemoglobin Sodium Potassium Chloride Carbon Dioxide BUN Creatinine Glucose POC Glucose 163 H Lactic Acid Calcium AST ALT Alkaline Phosphatase CK-MB (CK-2) CK-MB (CK-2) Rel Index Total Protein Albumin TSH Urine WBC (Auto) Salicylates 01/11/17 01/11/17 01/11/17 05:20 06:21 07:57 WBC RBC Hgb Hct MCV MCH RDW Plt Count Lymph % (Auto) [place] % (Auto) Eos % (Auto) Seg Neutrophils % Seg Neuts % (Manual) Lymphocytes % (Manual) Seg Neutrophils # Seg Neutrophils # Man Lymphocytes # (Manual) APTT POC ABG pH ABG pH POC ABG pCO2 POC ABG pO2 ABG pO2 ABG HCO3 ABG Base Excess ABG Hemoglobin VBG pH Oxyhemoglobin Sodium Potassium 3.4 L Chloride 111.5 H Carbon Dioxide 17 L BUN Creatinine Glucose 147 H POC Glucose 139 H 188 H Lactic Acid Calcium 8.0 L AST ALT Alkaline Phosphatase CK-MB (CK-2) CK-MB (CK-2) Rel Index Total Protein Albumin TSH Urine WBC (Auto) Salicylates 01/11/17 01/11/17 01/11/17 11:46 16:50 23:15 WBC RBC Hgb Hct MCV MCH RDW Plt Count Lymph % (Auto) [place] % (Auto) Eos % (Auto) Seg Neutrophils % Seg Neuts % (Manual) Lymphocytes % (Manual) Seg Neutrophils # Seg Neutrophils # Man Lymphocytes # (Manual) APTT POC ABG pH ABG pH POC ABG pCO2 POC ABG pO2 ABG pO2 ABG HCO3 ABG Base Excess ABG Hemoglobin VBG pH Oxyhemoglobin Sodium Potassium Chloride Carbon Dioxide BUN Creatinine Glucose POC Glucose 199 H 235 H 155 H Lactic Acid Calcium AST ALT Alkaline Phosphatase CK-MB (CK-2) CK-MB (CK-2) Rel Index Total Protein Albumin TSH Urine WBC (Auto) Salicylates 01/12/17 01/12/17 01/12/17 05:02 06:56 14:50 WBC RBC Hgb Hct MCV MCH RDW Plt Count Lymph % (Auto) [place] % (Auto) Eos % (Auto) Seg Neutrophils % Seg Neuts % (Manual) Lymphocytes % (Manual) Seg Neutrophils # Seg Neutrophils # Man Lymphocytes # (Manual) APTT POC ABG pH ABG pH POC ABG pCO2 28.0 L POC ABG pO2 178 H ABG pO2 ABG HCO3 ABG Base Excess ABG Hemoglobin VBG pH Oxyhemoglobin Sodium Potassium Chloride Carbon Dioxide BUN Creatinine Glucose POC Glucose 119 H 164 H Lactic Acid Calcium AST ALT Alkaline Phosphatase CK-MB (CK-2) CK-MB (CK-2) Rel Index Total Protein Albumin TSH Urine WBC (Auto) Salicylates 1001/13/17 01/13/17 03:37 03:37 04:26 WBC RBC 3.61 L Hgb 9.3 L Hct 28.0 L MCV 78 L MCH 26 L RDW 18.2 H Plt Count Lymph % (Auto) [place] % (Auto) Eos % (Auto) Seg Neutrophils % Seg Neuts % (Manual) Lymphocytes % (Manual) Seg Neutrophils # Seg Neutrophils # Man Lymphocytes # (Manual) APTT POC ABG pH 7.485 H ABG pH POC ABG pCO2 25.4 L POC ABG pO2 73 L ABG pO2 ABG HCO3 ABG Base Excess ABG Hemoglobin VBG pH Oxyhemoglobin Sodium Potassium Chloride 112.4 H Carbon Dioxide 19 L BUN Creatinine Glucose 118 H POC Glucose Lactic Acid Calcium 8.0 L AST ALT Alkaline Phosphatase CK-MB (CK-2) CK-MB (CK-2) Rel Index Total Protein Albumin TSH Urine WBC (Auto) Salicylates 01/13/17 01/13/17 01/13/17 06:15 11:50 17:31 WBC RBC Hgb Hct MCV MCH RDW Plt Count Lymph % (Auto) [place] % (Auto) Eos % (Auto) Seg Neutrophils % Seg Neuts % (Manual) Lymphocytes % (Manual) Seg Neutrophils # Seg Neutrophils # Man Lymphocytes # (Manual) APTT POC ABG pH ABG pH POC ABG pCO2 POC ABG pO2 ABG pO2 ABG HCO3 ABG Base Excess ABG Hemoglobin VBG pH Oxyhemoglobin Sodium Potassium Chloride Carbon Dioxide BUN Creatinine Glucose POC Glucose 116 H 171 H 203 H Lactic Acid Calcium AST ALT Alkaline Phosphatase CK-MB (CK-2) CK-MB (CK-2) Rel Index Total Protein Albumin TSH Urine WBC (Auto) Salicylates 01/14/17 01/14/17 01/14/17 00:02 04:50 04:50 WBC RBC 3.32 L Hgb 8.5 L Hct 26.1 L MCV 79 L MCH 26 L RDW 18.2 H Plt Count Lymph % (Auto) [place] % (Auto) 9.0 H Eos % (Auto) Seg Neutrophils % Seg Neuts % (Manual) Lymphocytes % (Manual) Seg Neutrophils # Seg Neutrophils # Man Lymphocytes # (Manual) APTT POC ABG pH ABG pH POC ABG pCO2 POC ABG pO2 ABG pO2 ABG HCO3 ABG Base Excess ABG Hemoglobin VBG pH Oxyhemoglobin Sodium Potassium Chloride 112.5 H Carbon Dioxide BUN Creatinine Glucose 149 H POC Glucose 157 H Lactic Acid Calcium 8.1 L AST ALT Alkaline Phosphatase CK-MB (CK-2) CK-MB (CK-2) Rel Index Total Protein Albumin TSH Urine WBC (Auto) Salicylates 01/14/17 01/14/17 01/14/17 05:10 11:27 14:07 WBC RBC Hgb Hct MCV MCH RDW Plt Count Lymph % (Auto) [place] % (Auto) Eos % (Auto) Seg Neutrophils % Seg Neuts % (Manual) Lymphocytes % (Manual) Seg Neutrophils # Seg Neutrophils # Man Lymphocytes # (Manual) APTT POC ABG pH ABG pH POC ABG pCO2 POC ABG pO2 ABG pO2 ABG HCO3 ABG Base Excess ABG Hemoglobin VBG pH Oxyhemoglobin Sodium Potassium Chloride Carbon Dioxide BUN Creatinine Glucose POC Glucose 176 H 147 H Lactic Acid Calcium AST ALT Alkaline Phosphatase CK-MB (CK-2) CK-MB (CK-2) Rel Index Total Protein Albumin TSH Urine WBC (Auto) 53.0 H Salicylates 01/14/17 01/15/17 01/15/17 16:52 00:04 05:26 WBC RBC Hgb Hct MCV MCH RDW Plt Count Lymph % (Auto) [place] % (Auto) Eos % (Auto) Seg Neutrophils % Seg Neuts % (Manual) Lymphocytes % (Manual) Seg Neutrophils # Seg Neutrophils # Man Lymphocytes # (Manual) APTT POC ABG pH ABG pH POC ABG pCO2 POC ABG pO2 ABG pO2 ABG HCO3 ABG Base Excess ABG Hemoglobin VBG pH Oxyhemoglobin Sodium Potassium Chloride Carbon Dioxide BUN Creatinine Glucose POC Glucose 131 H 193 H 215 H Lactic Acid Calcium AST ALT Alkaline Phosphatase CK-MB (CK-2) CK-MB (CK-2) Rel Index Total Protein Albumin TSH Urine WBC (Auto) Salicylates 01/15/17 01/15/17 01/15/17 11:49 17:47 21:33 WBC RBC Hgb Hct MCV MCH RDW Plt Count Lymph % (Auto) [place] % (Auto) Eos % (Auto) Seg Neutrophils % Seg Neuts % (Manual) Lymphocytes % (Manual) Seg Neutrophils # Seg Neutrophils # Man Lymphocytes # (Manual) APTT POC ABG pH ABG pH POC ABG pCO2 POC ABG pO2 ABG pO2 ABG HCO3 ABG Base Excess ABG Hemoglobin VBG pH Oxyhemoglobin Sodium Potassium Chloride Carbon Dioxide BUN Creatinine Glucose POC Glucose 121 H 211 H 275 H Lactic Acid Calcium AST ALT Alkaline Phosphatase CK-MB (CK-2) CK-MB (CK-2) Rel Index Total Protein Albumin TSH Urine WBC (Auto) Salicylates 01/16/17 01/16/17 01/16/17 04:30 05:28 13:45 WBC RBC Hgb Hct MCV MCH RDW Plt Count Lymph % (Auto) [place] % (Auto) Eos % (Auto) Seg Neutrophils % Seg Neuts % (Manual) Lymphocytes % (Manual) Seg Neutrophils # Seg Neutrophils # Man Lymphocytes # (Manual) APTT POC ABG pH ABG pH 7.457 H POC ABG pCO2 POC ABG pO2 ABG pO2 55.1 L ABG HCO3 19.4 L ABG Base Excess -4.0 L ABG Hemoglobin 6.8 L VBG pH Oxyhemoglobin 94.9 L Sodium Potassium Chloride Carbon Dioxide BUN Creatinine Glucose POC Glucose 271 H 236 H Lactic Acid Calcium AST ALT Alkaline Phosphatase CK-MB (CK-2) CK-MB (CK-2) Rel Index Total Protein Albumin TSH Urine WBC (Auto) Salicylates 01/16/17 01/17/17 01/17/17 21:39 04:10 04:10 WBC 4.4 L RBC 2.98 L Hgb 7.7 L Hct 23.3 L MCV 78 L MCH 26 L RDW 18.1 H Plt Count Lymph % (Auto) [place] % (Auto) Eos % (Auto) Seg Neutrophils % Seg Neuts % (Manual) Lymphocytes % (Manual) Seg Neutrophils # Seg Neutrophils # Man Lymphocytes # (Manual) APTT POC ABG pH ABG pH POC ABG pCO2 POC ABG pO2 ABG pO2 ABG HCO3 ABG Base Excess ABG Hemoglobin VBG pH Oxyhemoglobin Sodium Potassium 3.3 L Chloride 108.7 H Carbon Dioxide 20 L BUN 8 L Creatinine Glucose 202 H POC Glucose 258 H Lactic Acid Calcium 7.6 L AST ALT Alkaline Phosphatase CK-MB (CK-2) CK-MB (CK-2) Rel Index Total Protein Albumin TSH Urine WBC (Auto) Salicylates 01/17/17 01/17/17 01/17/17 04:35 12:23 16:01 WBC RBC Hgb Hct MCV MCH RDW Plt Count Lymph % (Auto) [place] % (Auto) Eos % (Auto) Seg Neutrophils % Seg Neuts % (Manual) Lymphocytes % (Manual) Seg Neutrophils # Seg Neutrophils # Man Lymphocytes # (Manual) APTT POC ABG pH ABG pH POC ABG pCO2 POC ABG pO2 ABG pO2 160.3 H ABG HCO3 ABG Base Excess -2.3 L ABG Hemoglobin 7.9 L VBG pH Oxyhemoglobin Sodium Potassium Chloride Carbon Dioxide BUN Creatinine Glucose POC Glucose 321 H 239 H Lactic Acid Calcium AST ALT Alkaline Phosphatase CK-MB (CK-2) CK-MB (CK-2) Rel Index Total Protein Albumin TSH Urine WBC (Auto) Salicylates 01/18/17 01/18/17 01/18/17 05:07 12:09 17:54 WBC RBC Hgb Hct MCV MCH RDW Plt Count Lymph % (Auto) [place] % (Auto) Eos % (Auto) Seg Neutrophils % Seg Neuts % (Manual) Lymphocytes % (Manual) Seg Neutrophils # Seg Neutrophils # Man Lymphocytes # (Manual) APTT POC ABG pH ABG pH POC ABG pCO2 POC ABG pO2 ABG pO2 ABG HCO3 ABG Base Excess ABG Hemoglobin VBG pH Oxyhemoglobin Sodium Potassium Chloride Carbon Dioxide BUN Creatinine Glucose POC Glucose 155 H 203 H 132 H Lactic Acid Calcium AST ALT Alkaline Phosphatase CK-MB (CK-2) CK-MB (CK-2) Rel Index Total Protein Albumin TSH Urine WBC (Auto) Salicylates 01/18/17 01/19/17 01/19/17 23:43 04:28 12:11 WBC RBC Hgb Hct MCV MCH RDW Plt Count Lymph % (Auto) [place] % (Auto) Eos % (Auto) Seg Neutrophils % Seg Neuts % (Manual) Lymphocytes % (Manual) Seg Neutrophils # Seg Neutrophils # Man Lymphocytes # (Manual) APTT POC ABG pH ABG pH POC ABG pCO2 POC ABG pO2 ABG pO2 ABG HCO3 ABG Base Excess ABG Hemoglobin VBG pH Oxyhemoglobin Sodium Potassium Chloride Carbon Dioxide BUN Creatinine Glucose POC Glucose 125 H 182 H 153 H Lactic Acid Calcium AST ALT Alkaline Phosphatase CK-MB (CK-2) CK-MB (CK-2) Rel Index Total Protein Albumin TSH Urine WBC (Auto) Salicylates 01/19/17 01/20/17 01/20/17 17:23 00:12 05:44 WBC RBC Hgb Hct MCV MCH RDW Plt Count Lymph % (Auto) [place] % (Auto) Eos % (Auto) Seg Neutrophils % Seg Neuts % (Manual) Lymphocytes % (Manual) Seg Neutrophils # Seg Neutrophils # Man Lymphocytes # (Manual) APTT POC ABG pH ABG pH POC ABG pCO2 POC ABG pO2 ABG pO2 ABG HCO3 ABG Base Excess ABG Hemoglobin VBG pH Oxyhemoglobin Sodium Potassium Chloride Carbon Dioxide BUN Creatinine Glucose POC Glucose 66 L 139 H 176 H Lactic Acid Calcium AST ALT Alkaline Phosphatase CK-MB (CK-2) CK-MB (CK-2) Rel Index Total Protein Albumin TSH Urine WBC (Auto) Salicylates 01/20/17 01/20/17 01/20/17 11:48 17:42 23:43 WBC RBC Hgb Hct MCV MCH RDW Plt Count Lymph % (Auto) [place] % (Auto) Eos % (Auto) Seg Neutrophils % Seg Neuts % (Manual) Lymphocytes % (Manual) Seg Neutrophils # Seg Neutrophils # Man Lymphocytes # (Manual) APTT POC ABG pH ABG pH POC ABG pCO2 POC ABG pO2 ABG pO2 ABG HCO3 ABG Base Excess ABG Hemoglobin VBG pH Oxyhemoglobin Sodium Potassium Chloride Carbon Dioxide BUN Creatinine Glucose POC Glucose 218 H 132 H 178 H Lactic Acid Calcium AST ALT Alkaline Phosphatase CK-MB (CK-2) CK-MB (CK-2) Rel Index Total Protein Albumin TSH Urine WBC (Auto) Salicylates 01/21/17 01/21/17 01/21/17 05:34 11:17 23:37 WBC RBC Hgb Hct MCV MCH RDW Plt Count Lymph % (Auto) [place] % (Auto) Eos % (Auto) Seg Neutrophils % Seg Neuts % (Manual) Lymphocytes % (Manual) Seg Neutrophils # Seg Neutrophils # Man Lymphocytes # (Manual) APTT POC ABG pH ABG pH POC ABG pCO2 POC ABG pO2 ABG pO2 ABG HCO3 ABG Base Excess ABG Hemoglobin VBG pH Oxyhemoglobin Sodium Potassium Chloride Carbon Dioxide BUN Creatinine Glucose POC Glucose 106 H 213 H 140 H Lactic Acid Calcium AST ALT Alkaline Phosphatase CK-MB (CK-2) CK-MB (CK-2) Rel Index Total Protein Albumin TSH Urine WBC (Auto) Salicylates 01/22/17 01/22/17 01/22/17 04:00 04:00 04:58 WBC RBC 3.26 L Hgb 8.3 L Hct 25.5 L MCV 78 L MCH 25 L RDW 17.9 H Plt Count Lymph % (Auto) [place] % (Auto) 7.9 H Eos % (Auto) 6.2 H Seg Neutrophils % Seg Neuts % (Manual) Lymphocytes % (Manual) Seg Neutrophils # Seg Neutrophils # Man Lymphocytes # (Manual) APTT POC ABG pH ABG pH POC ABG pCO2 POC ABG pO2 ABG pO2 ABG HCO3 ABG Base Excess ABG Hemoglobin VBG pH Oxyhemoglobin Sodium Potassium Chloride 95.5 L Carbon Dioxide 31 H D BUN Creatinine Glucose 134 H POC Glucose 146 H Lactic Acid Calcium AST 44 H ALT Alkaline Phosphatase 379 H CK-MB (CK-2) CK-MB (CK-2) Rel Index Total Protein Albumin 2.7 L TSH Urine WBC (Auto) Salicylates 01/22/17 01/22/17 01/22/17 12:12 18:12 23:39 WBC RBC Hgb Hct MCV MCH RDW Plt Count Lymph % (Auto) [place] % (Auto) Eos % (Auto) Seg Neutrophils % Seg Neuts % (Manual) Lymphocytes % (Manual) Seg Neutrophils # Seg Neutrophils # Man Lymphocytes # (Manual) APTT POC ABG pH ABG pH POC ABG pCO2 POC ABG pO2 ABG pO2 ABG HCO3 ABG Base Excess ABG Hemoglobin VBG pH Oxyhemoglobin Sodium Potassium Chloride Carbon Dioxide BUN Creatinine Glucose POC Glucose 255 H 182 H 134 H Lactic Acid Calcium AST ALT Alkaline Phosphatase CK-MB (CK-2) CK-MB (CK-2) Rel Index Total Protein Albumin TSH Urine WBC (Auto) Salicylates 01/23/17 01/23/17 01/23/17 04:43 12:12 17:36 WBC RBC Hgb Hct MCV MCH RDW Plt Count Lymph % (Auto) [place] % (Auto) Eos % (Auto) Seg Neutrophils % Seg Neuts % (Manual) Lymphocytes % (Manual) Seg Neutrophils # Seg Neutrophils # Man Lymphocytes # (Manual) APTT POC ABG pH ABG pH POC ABG pCO2 POC ABG pO2 ABG pO2 ABG HCO3 ABG Base Excess ABG Hemoglobin VBG pH Oxyhemoglobin Sodium Potassium Chloride Carbon Dioxide BUN Creatinine Glucose POC Glucose 218 H 128 H 156 H Lactic Acid Calcium AST ALT Alkaline Phosphatase CK-MB (CK-2) CK-MB (CK-2) Rel Index Total Protein Albumin TSH Urine WBC (Auto) Salicylates 01/24/17 01/24/17 01/24/17 00:08 05:16 11:40 WBC RBC Hgb Hct MCV MCH RDW Plt Count Lymph % (Auto) [place] % (Auto) Eos % (Auto) Seg Neutrophils % Seg Neuts % (Manual) Lymphocytes % (Manual) Seg Neutrophils # Seg Neutrophils # Man Lymphocytes # (Manual) APTT POC ABG pH ABG pH POC ABG pCO2 POC ABG pO2 ABG pO2 ABG HCO3 ABG Base Excess ABG Hemoglobin VBG pH Oxyhemoglobin Sodium Potassium Chloride Carbon Dioxide BUN Creatinine Glucose POC Glucose 129 H 169 H 187 H Lactic Acid Calcium AST ALT Alkaline Phosphatase CK-MB (CK-2) CK-MB (CK-2) Rel Index Total Protein Albumin TSH Urine WBC (Auto) Salicylates 01/24/17 01/24/17 01/25/17 17:43 23:23 04:56 WBC RBC Hgb Hct MCV MCH RDW Plt Count Lymph % (Auto) [place] % (Auto) Eos % (Auto) Seg Neutrophils % Seg Neuts % (Manual) Lymphocytes % (Manual) Seg Neutrophils # Seg Neutrophils # Man Lymphocytes # (Manual) APTT POC ABG pH ABG pH POC ABG pCO2 POC ABG pO2 ABG pO2 ABG HCO3 ABG Base Excess ABG Hemoglobin VBG pH Oxyhemoglobin Sodium Potassium Chloride Carbon Dioxide BUN Creatinine Glucose POC Glucose 215 H 222 H 210 H Lactic Acid Calcium AST ALT Alkaline Phosphatase CK-MB (CK-2) CK-MB (CK-2) Rel Index Total Protein Albumin TSH Urine WBC (Auto) Salicylates 01/25/17 01/25/17 01/26/17 11:52 17:37 00:02 WBC RBC Hgb Hct MCV MCH RDW Plt Count Lymph % (Auto) [place] % (Auto) Eos % (Auto) Seg Neutrophils % Seg Neuts % (Manual) Lymphocytes % (Manual) Seg Neutrophils # Seg Neutrophils # Man Lymphocytes # (Manual) APTT POC ABG pH ABG pH POC ABG pCO2 POC ABG pO2 ABG pO2 ABG HCO3 ABG Base Excess ABG Hemoglobin VBG pH Oxyhemoglobin Sodium Potassium Chloride Carbon Dioxide BUN Creatinine Glucose POC Glucose 284 H 218 H 192 H Lactic Acid Calcium AST ALT Alkaline Phosphatase CK-MB (CK-2) CK-MB (CK-2) Rel Index Total Protein Albumin TSH Urine WBC (Auto) Salicylates 01/26/17 01/26/17 01/26/17 05:33 12:17 17:50 WBC RBC Hgb Hct MCV MCH RDW Plt Count Lymph % (Auto) [place] % (Auto) Eos % (Auto) Seg Neutrophils % Seg Neuts % (Manual) Lymphocytes % (Manual) Seg Neutrophils # Seg Neutrophils # Man Lymphocytes # (Manual) APTT POC ABG pH ABG pH POC ABG pCO2 POC ABG pO2 ABG pO2 ABG HCO3 ABG Base Excess ABG Hemoglobin VBG pH Oxyhemoglobin Sodium Potassium Chloride Carbon Dioxide BUN Creatinine Glucose POC Glucose 199 H 227 H 229 H Lactic Acid Calcium AST ALT Alkaline Phosphatase CK-MB (CK-2) CK-MB (CK-2) Rel Index Total Protein Albumin TSH Urine WBC (Auto) Salicylates 01/26/17 01/27/17 01/27/17 23:57 05:31 11:42 WBC RBC Hgb Hct MCV MCH RDW Plt Count Lymph % (Auto) [place] % (Auto) Eos % (Auto) Seg Neutrophils % Seg Neuts % (Manual) Lymphocytes % (Manual) Seg Neutrophils # Seg Neutrophils # Man Lymphocytes # (Manual) APTT POC ABG pH ABG pH POC ABG pCO2 POC ABG pO2 ABG pO2 ABG HCO3 ABG Base Excess ABG Hemoglobin VBG pH Oxyhemoglobin Sodium Potassium Chloride Carbon Dioxide BUN Creatinine Glucose POC Glucose 186 H 285 H 260 H Lactic Acid Calcium AST ALT Alkaline Phosphatase CK-MB (CK-2) CK-MB (CK-2) Rel Index Total Protein Albumin TSH Urine WBC (Auto) Salicylates 01/27/17 01/27/17 01/27/17 17:47 23:58 Unknown WBC 12.1 H RBC 3.28 L Hgb 8.5 L Hct 25.5 L MCV 78 L MCH 26 L RDW 16.8 H Plt Count 601 H Lymph % (Auto) [place] % (Auto) Eos % (Auto) Seg Neutrophils % Seg Neuts % (Manual) Lymphocytes % (Manual) Seg Neutrophils # Seg Neutrophils # Man Lymphocytes # (Manual) APTT POC ABG pH ABG pH POC ABG pCO2 POC ABG pO2 ABG pO2 ABG HCO3 ABG Base Excess ABG Hemoglobin VBG pH Oxyhemoglobin Sodium Potassium Chloride Carbon Dioxide BUN Creatinine Glucose POC Glucose 329 H 225 H Lactic Acid Calcium AST ALT Alkaline Phosphatase CK-MB (CK-2) CK-MB (CK-2) Rel Index Total Protein Albumin TSH Urine WBC (Auto) Salicylates 01/27/17 01/28/17 01/28/17 Unknown 03:44 03:44 WBC RBC 3.14 L Hgb 8.2 L Hct 24.1 L MCV 77 L MCH 26 L RDW 16.9 H Plt Count 567 H Lymph % (Auto) [place] % (Auto) Eos % (Auto) Seg Neutrophils % Seg Neuts % (Manual) Lymphocytes % (Manual) Seg Neutrophils # Seg Neutrophils # Man Lymphocytes # (Manual) APTT POC ABG pH ABG pH POC ABG pCO2 POC ABG pO2 ABG pO2 ABG HCO3 ABG Base Excess ABG Hemoglobin VBG pH Oxyhemoglobin Sodium 128 L Potassium 5.4 H Chloride 87.5 L Carbon Dioxide BUN 44 H 42 H Creatinine Glucose 250 H 128 H POC Glucose Lactic Acid Calcium AST ALT Alkaline Phosphatase CK-MB (CK-2) CK-MB (CK-2) Rel Index Total Protein Albumin TSH Urine WBC (Auto) Salicylates 01/28/17 01/28/17 01/28/17 11:43 16:47 17:52 WBC RBC Hgb Hct MCV MCH RDW Plt Count Lymph % (Auto) [place] % (Auto) Eos % (Auto) Seg Neutrophils % Seg Neuts % (Manual) Lymphocytes % (Manual) Seg Neutrophils # Seg Neutrophils # Man Lymphocytes # (Manual) APTT POC ABG pH ABG pH POC ABG pCO2 POC ABG pO2 ABG pO2 ABG HCO3 ABG Base Excess ABG Hemoglobin VBG pH Oxyhemoglobin Sodium Potassium Chloride Carbon Dioxide BUN Creatinine Glucose POC Glucose 351 H 249 H Lactic Acid Calcium AST ALT Alkaline Phosphatase CK-MB (CK-2) CK-MB (CK-2) Rel Index Total Protein Albumin TSH Urine WBC (Auto) > 182.0 H Salicylates 01/29/17 01/29/17 01/29/17 05:25 05:25 09:32 WBC 13.6 H RBC 3.25 L Hgb 8.3 L Hct 25.1 L MCV 77 L MCH 26 L RDW 16.8 H Plt Count 514 H Lymph % (Auto) [place] % (Auto) Eos % (Auto) Seg Neutrophils % Seg Neuts % (Manual) Lymphocytes % (Manual) Seg Neutrophils # Seg Neutrophils # Man Lymphocytes # (Manual) APTT POC ABG pH ABG pH POC ABG pCO2 POC ABG pO2 ABG pO2 ABG HCO3 ABG Base Excess ABG Hemoglobin VBG pH Oxyhemoglobin Sodium Potassium Chloride 97.8 L Carbon Dioxide BUN 34 H Creatinine Glucose 222 H POC Glucose Lactic Acid 2.50 H* Calcium AST ALT Alkaline Phosphatase CK-MB (CK-2) CK-MB (CK-2) Rel Index Total Protein Albumin TSH Urine WBC (Auto) Salicylates 01/29/17 01/29/17 01/29/17 11:56 18:11 23:55 WBC RBC Hgb Hct MCV MCH RDW Plt Count Lymph % (Auto) [place] % (Auto) Eos % (Auto) Seg Neutrophils % Seg Neuts % (Manual) Lymphocytes % (Manual) Seg Neutrophils # Seg Neutrophils # Man Lymphocytes # (Manual) APTT POC ABG pH ABG pH POC ABG pCO2 POC ABG pO2 ABG pO2 ABG HCO3 ABG Base Excess ABG Hemoglobin VBG pH Oxyhemoglobin Sodium Potassium Chloride Carbon Dioxide BUN Creatinine Glucose POC Glucose 261 H 215 H 176 H Lactic Acid Calcium AST ALT Alkaline Phosphatase CK-MB (CK-2) CK-MB (CK-2) Rel Index Total Protein Albumin TSH Urine WBC (Auto) Salicylates 01/30/17 01/30/17 01/30/17 05:31 05:31 05:34 WBC 15.2 H RBC 3.09 L Hgb 7.9 L Hct 23.9 L MCV 77 L MCH 26 L RDW 16.9 H Plt Count 569 H Lymph % (Auto) [place] % (Auto) Eos % (Auto) Seg Neutrophils % Seg Neuts % (Manual) Lymphocytes % (Manual) Seg Neutrophils # Seg Neutrophils # Man Lymphocytes # (Manual) APTT POC ABG pH ABG pH POC ABG pCO2 POC ABG pO2 ABG pO2 ABG HCO3 ABG Base Excess ABG Hemoglobin VBG pH Oxyhemoglobin Sodium Potassium Chloride Carbon Dioxide BUN 24 H Creatinine Glucose 235 H POC Glucose 243 H Lactic Acid Calcium AST ALT Alkaline Phosphatase CK-MB (CK-2) CK-MB (CK-2) Rel Index Total Protein Albumin TSH Urine WBC (Auto) Salicylates 01/30/17 01/30/17 01/30/17 11:38 17:58 23:29 WBC RBC Hgb Hct MCV MCH RDW Plt Count Lymph % (Auto) [place] % (Auto) Eos % (Auto) Seg Neutrophils % Seg Neuts % (Manual) Lymphocytes % (Manual) Seg Neutrophils # Seg Neutrophils # Man Lymphocytes # (Manual) APTT POC ABG pH ABG pH POC ABG pCO2 POC ABG pO2 ABG pO2 ABG HCO3 ABG Base Excess ABG Hemoglobin VBG pH Oxyhemoglobin Sodium Potassium Chloride Carbon Dioxide BUN Creatinine Glucose POC Glucose 298 H 208 H 245 H Lactic Acid Calcium AST ALT Alkaline Phosphatase CK-MB (CK-2) CK-MB (CK-2) Rel Index Total Protein Albumin TSH Urine WBC (Auto) Salicylates 01/31/17 01/31/17 01/31/17 04:39 04:39 05:57 WBC 11.4 H RBC 3.22 L Hgb 8.2 L Hct 24.9 L MCV 78 L MCH 25 L RDW 17.2 H Plt Count 576 H Lymph % (Auto) [place] % (Auto) Eos % (Auto) Seg Neutrophils % Seg Neuts % (Manual) Lymphocytes % (Manual) Seg Neutrophils # Seg Neutrophils # Man Lymphocytes # (Manual) APTT POC ABG pH ABG pH POC ABG pCO2 POC ABG pO2 ABG pO2 ABG HCO3 ABG Base Excess ABG Hemoglobin VBG pH Oxyhemoglobin Sodium Potassium Chloride Carbon Dioxide BUN Creatinine 0.7 L Glucose 223 H POC Glucose 264 H Lactic Acid Calcium AST ALT Alkaline Phosphatase CK-MB (CK-2) CK-MB (CK-2) Rel Index Total Protein Albumin TSH Urine WBC (Auto) Salicylates 01/31/17 01/31/17 01/31/17 12:23 17:41 18:55 WBC RBC Hgb Hct MCV MCH RDW Plt Count Lymph % (Auto) [place] % (Auto) Eos % (Auto) Seg Neutrophils % Seg Neuts % (Manual) Lymphocytes % (Manual) Seg Neutrophils # Seg Neutrophils # Man Lymphocytes # (Manual) APTT POC ABG pH ABG pH POC ABG pCO2 32.8 L POC ABG pO2 ABG pO2 ABG HCO3 ABG Base Excess ABG Hemoglobin VBG pH Oxyhemoglobin Sodium Potassium Chloride Carbon Dioxide BUN Creatinine Glucose POC Glucose 252 H 208 H Lactic Acid Calcium AST ALT Alkaline Phosphatase CK-MB (CK-2) CK-MB (CK-2) Rel Index Total Protein Albumin TSH Urine WBC (Auto) Salicylates 01/31/17 02/01/17 02/01/17 22:59 03:38 03:38 WBC RBC 2.81 L Hgb 7.4 L Hct 22.1 L MCV 79 L MCH 27 L RDW 17.0 H Plt Count 540 H Lymph % (Auto) [place] % (Auto) Eos % (Auto) Seg Neutrophils % Seg Neuts % (Manual) Lymphocytes % (Manual) Seg Neutrophils # Seg Neutrophils # Man Lymphocytes # (Manual) APTT POC ABG pH ABG pH POC ABG pCO2 POC ABG pO2 ABG pO2 ABG HCO3 ABG Base Excess ABG Hemoglobin VBG pH Oxyhemoglobin Sodium Potassium Chloride Carbon Dioxide 21 L BUN Creatinine 0.7 L Glucose POC Glucose 40 L Lactic Acid Calcium AST ALT Alkaline Phosphatase CK-MB (CK-2) CK-MB (CK-2) Rel Index Total Protein Albumin TSH Urine WBC (Auto) Salicylates 02/01/17 02/01/17 02/01/17 05:17 12:19 16:44 WBC RBC Hgb Hct MCV MCH RDW Plt Count Lymph % (Auto) [place] % (Auto) Eos % (Auto) Seg Neutrophils % Seg Neuts % (Manual) Lymphocytes % (Manual) Seg Neutrophils # Seg Neutrophils # Man Lymphocytes # (Manual) APTT POC ABG pH ABG pH POC ABG pCO2 POC ABG pO2 ABG pO2 ABG HCO3 ABG Base Excess ABG Hemoglobin VBG pH Oxyhemoglobin Sodium Potassium Chloride Carbon Dioxide BUN Creatinine Glucose POC Glucose 140 H 213 H 172 H Lactic Acid Calcium AST ALT Alkaline Phosphatase CK-MB (CK-2) CK-MB (CK-2) Rel Index Total Protein Albumin TSH Urine WBC (Auto) Salicylates 02/01/17 02/02/17 02/02/17 23:59 05:14 11:24 WBC RBC Hgb Hct MCV MCH RDW Plt Count Lymph % (Auto) [place] % (Auto) Eos % (Auto) Seg Neutrophils % Seg Neuts % (Manual) Lymphocytes % (Manual) Seg Neutrophils # Seg Neutrophils # Man Lymphocytes # (Manual) APTT POC ABG pH ABG pH POC ABG pCO2 POC ABG pO2 ABG pO2 ABG HCO3 ABG Base Excess ABG Hemoglobin VBG pH Oxyhemoglobin Sodium Potassium Chloride Carbon Dioxide BUN Creatinine Glucose POC Glucose 181 H 194 H 209 H Lactic Acid Calcium AST ALT Alkaline Phosphatase CK-MB (CK-2) CK-MB (CK-2) Rel Index Total Protein Albumin TSH Urine WBC (Auto) Salicylates 10/02/02/17 02/02/17 11:46 11:46 17:47 WBC RBC 2.94 L Hgb 7.5 L Hct 23.0 L MCV 78 L MCH 25 L RDW 16.9 H Plt Count 520 H Lymph % (Auto) [place] % (Auto) Eos % (Auto) Seg Neutrophils % Seg Neuts % (Manual) Lymphocytes % (Manual) Seg Neutrophils # Seg Neutrophils # Man Lymphocytes # (Manual) APTT POC ABG pH ABG pH POC ABG pCO2 POC ABG pO2 ABG pO2 ABG HCO3 ABG Base Excess ABG Hemoglobin VBG pH Oxyhemoglobin Sodium Potassium Chloride Carbon Dioxide BUN Creatinine 0.6 L Glucose 189 H POC Glucose 147 H Lactic Acid Calcium 8.1 L AST ALT Alkaline Phosphatase CK-MB (CK-2) CK-MB (CK-2) Rel Index Total Protein Albumin TSH Urine WBC (Auto) Salicylates 02/02/17 02/03/17 02/03/17 23:32 05:53 11:19 WBC RBC Hgb Hct MCV MCH RDW Plt Count Lymph % (Auto) [place] % (Auto) Eos % (Auto) Seg Neutrophils % Seg Neuts % (Manual) Lymphocytes % (Manual) Seg Neutrophils # Seg Neutrophils # Man Lymphocytes # (Manual) APTT POC ABG pH ABG pH POC ABG pCO2 POC ABG pO2 ABG pO2 ABG HCO3 ABG Base Excess ABG Hemoglobin VBG pH Oxyhemoglobin Sodium Potassium Chloride Carbon Dioxide BUN Creatinine Glucose POC Glucose 176 H 224 H 228 H Lactic Acid Calcium AST ALT Alkaline Phosphatase CK-MB (CK-2) CK-MB (CK-2) Rel Index Total Protein Albumin TSH Urine WBC (Auto) Salicylates 02/03/17 02/03/17 02/04/17 16:59 23:38 05:45 WBC RBC Hgb Hct MCV MCH RDW Plt Count Lymph % (Auto) [place] % (Auto) Eos % (Auto) Seg Neutrophils % Seg Neuts % (Manual) Lymphocytes % (Manual) Seg Neutrophils # Seg Neutrophils # Man Lymphocytes # (Manual) APTT POC ABG pH ABG pH POC ABG pCO2 POC ABG pO2 ABG pO2 ABG HCO3 ABG Base Excess ABG Hemoglobin VBG pH Oxyhemoglobin Sodium Potassium Chloride Carbon Dioxide BUN Creatinine Glucose POC Glucose 189 H 191 H 251 H Lactic Acid Calcium AST ALT Alkaline Phosphatase CK-MB (CK-2) CK-MB (CK-2) Rel Index Total Protein Albumin TSH Urine WBC (Auto) Salicylates 02/04/17 02/04/17 02/05/17 11:20 17:20 00:17 WBC RBC Hgb Hct MCV MCH RDW Plt Count Lymph % (Auto) [place] % (Auto) Eos % (Auto) Seg Neutrophils % Seg Neuts % (Manual) Lymphocytes % (Manual) Seg Neutrophils # Seg Neutrophils # Man Lymphocytes # (Manual) APTT POC ABG pH ABG pH POC ABG pCO2 POC ABG pO2 ABG pO2 ABG HCO3 ABG Base Excess ABG Hemoglobin VBG pH Oxyhemoglobin Sodium Potassium Chloride Carbon Dioxide BUN Creatinine Glucose POC Glucose 243 H 163 H 200 H Lactic Acid Calcium AST ALT Alkaline Phosphatase CK-MB (CK-2) CK-MB (CK-2) Rel Index Total Protein Albumin TSH Urine WBC (Auto) Salicylates 02/05/17 02/05/17 02/05/17 05:38 12:38 16:29 WBC RBC Hgb Hct MCV MCH RDW Plt Count Lymph % (Auto) [place] % (Auto) Eos % (Auto) Seg Neutrophils % Seg Neuts % (Manual) Lymphocytes % (Manual) Seg Neutrophils # Seg Neutrophils # Man Lymphocytes # (Manual) APTT POC ABG pH ABG pH POC ABG pCO2 POC ABG pO2 ABG pO2 ABG HCO3 ABG Base Excess ABG Hemoglobin VBG pH Oxyhemoglobin Sodium Potassium Chloride Carbon Dioxide BUN Creatinine Glucose POC Glucose 248 H 241 H 257 H Lactic Acid Calcium AST ALT Alkaline Phosphatase CK-MB (CK-2) CK-MB (CK-2) Rel Index Total Protein Albumin TSH Urine WBC (Auto) Salicylates 02/05/17 02/06/17 02/06/17 23:56 05:30 11:50 WBC RBC Hgb Hct MCV MCH RDW Plt Count Lymph % (Auto) [place] % (Auto) Eos % (Auto) Seg Neutrophils % Seg Neuts % (Manual) Lymphocytes % (Manual) Seg Neutrophils # Seg Neutrophils # Man Lymphocytes # (Manual) APTT POC ABG pH ABG pH POC ABG pCO2 POC ABG pO2 ABG pO2 ABG HCO3 ABG Base Excess ABG Hemoglobin VBG pH Oxyhemoglobin Sodium Potassium Chloride Carbon Dioxide BUN Creatinine Glucose POC Glucose 258 H 120 H 254 H Lactic Acid Calcium AST ALT Alkaline Phosphatase CK-MB (CK-2) CK-MB (CK-2) Rel Index Total Protein Albumin TSH Urine WBC (Auto) Salicylates 02/06/17 02/06/17 02/07/17 17:11 23:50 05:22 WBC RBC Hgb Hct MCV MCH RDW Plt Count Lymph % (Auto) [place] % (Auto) Eos % (Auto) Seg Neutrophils % Seg Neuts % (Manual) Lymphocytes % (Manual) Seg Neutrophils # Seg Neutrophils # Man Lymphocytes # (Manual) APTT POC ABG pH ABG pH POC ABG pCO2 POC ABG pO2 ABG pO2 ABG HCO3 ABG Base Excess ABG Hemoglobin VBG pH Oxyhemoglobin Sodium Potassium Chloride Carbon Dioxide BUN Creatinine Glucose POC Glucose 149 H 240 H 258 H Lactic Acid Calcium AST ALT Alkaline Phosphatase CK-MB (CK-2) CK-MB (CK-2) Rel Index Total Protein Albumin TSH Urine WBC (Auto) Salicylates 02/07/17 02/07/17 02/07/17 11:15 18:33 23:59 WBC RBC Hgb Hct MCV MCH RDW Plt Count Lymph % (Auto) [place] % (Auto) Eos % (Auto) Seg Neutrophils % Seg Neuts % (Manual) Lymphocytes % (Manual) Seg Neutrophils # Seg Neutrophils # Man Lymphocytes # (Manual) APTT POC ABG pH ABG pH POC ABG pCO2 POC ABG pO2 ABG pO2 ABG HCO3 ABG Base Excess ABG Hemoglobin VBG pH Oxyhemoglobin Sodium Potassium Chloride Carbon Dioxide BUN Creatinine Glucose POC Glucose 239 H 176 H 186 H Lactic Acid Calcium AST ALT Alkaline Phosphatase CK-MB (CK-2) CK-MB (CK-2) Rel Index Total Protein Albumin TSH Urine WBC (Auto) Salicylates 02/08/17 02/08/17 02/08/17 06:15 11:55 16:55 WBC RBC Hgb Hct MCV MCH RDW Plt Count Lymph % (Auto) [place] % (Auto) Eos % (Auto) Seg Neutrophils % Seg Neuts % (Manual) Lymphocytes % (Manual) Seg Neutrophils # Seg Neutrophils # Man Lymphocytes # (Manual) APTT POC ABG pH ABG pH POC ABG pCO2 POC ABG pO2 ABG pO2 ABG HCO3 ABG Base Excess ABG Hemoglobin VBG pH Oxyhemoglobin Sodium Potassium Chloride Carbon Dioxide BUN Creatinine Glucose POC Glucose 195 H 129 H 246 H Lactic Acid Calcium AST ALT Alkaline Phosphatase CK-MB (CK-2) CK-MB (CK-2) Rel Index Total Protein Albumin TSH Urine WBC (Auto) Salicylates 02/08/17 02/09/17 02/09/17 23:51 05:51 07:24 WBC 14.7 H RBC 3.39 L Hgb 8.9 L Hct 26.4 L MCV 78 L MCH 26 L RDW 18.4 H Plt Count 670 H Lymph % (Auto) 11.8 L [place] % (Auto) Eos % (Auto) Seg Neutrophils % 81.2 H Seg Neuts % (Manual) Lymphocytes % (Manual) Seg Neutrophils # 11.9 H Seg Neutrophils # Man Lymphocytes # (Manual) APTT POC ABG pH ABG pH POC ABG pCO2 POC ABG pO2 ABG pO2 ABG HCO3 ABG Base Excess ABG Hemoglobin VBG pH Oxyhemoglobin Sodium Potassium Chloride Carbon Dioxide BUN Creatinine Glucose POC Glucose 262 H 295 H Lactic Acid Calcium AST ALT Alkaline Phosphatase CK-MB (CK-2) CK-MB (CK-2) Rel Index Total Protein Albumin TSH Urine WBC (Auto) Salicylates 02/09/17 02/09/17 02/09/17 07:24 12:08 18:39 WBC RBC Hgb Hct MCV MCH RDW Plt Count Lymph % (Auto) [place] % (Auto) Eos % (Auto) Seg Neutrophils % Seg Neuts % (Manual) Lymphocytes % (Manual) Seg Neutrophils # Seg Neutrophils # Man Lymphocytes # (Manual) APTT POC ABG pH ABG pH POC ABG pCO2 POC ABG pO2 ABG pO2 ABG HCO3 ABG Base Excess ABG Hemoglobin VBG pH Oxyhemoglobin Sodium Potassium Chloride 95.5 L Carbon Dioxide BUN 52 H Creatinine Glucose 277 H POC Glucose 236 H 151 H Lactic Acid Calcium AST ALT Alkaline Phosphatase CK-MB (CK-2) CK-MB (CK-2) Rel Index Total Protein Albumin TSH Urine WBC (Auto) Salicylates 02/10/17 02/10/17 02/10/17 00:01 05:44 11:21 WBC RBC Hgb Hct MCV MCH RDW Plt Count Lymph % (Auto) [place] % (Auto) Eos % (Auto) Seg Neutrophils % Seg Neuts % (Manual) Lymphocytes % (Manual) Seg Neutrophils # Seg Neutrophils # Man Lymphocytes # (Manual) APTT POC ABG pH ABG pH POC ABG pCO2 POC ABG pO2 ABG pO2 ABG HCO3 ABG Base Excess ABG Hemoglobin VBG pH Oxyhemoglobin Sodium Potassium Chloride Carbon Dioxide BUN Creatinine Glucose POC Glucose 210 H 201 H 233 H Lactic Acid Calcium AST ALT Alkaline Phosphatase CK-MB (CK-2) CK-MB (CK-2) Rel Index Total Protein Albumin TSH Urine WBC (Auto) Salicylates 02/10/17 02/10/17 02/11/17 17:29 23:56 05:24 WBC RBC Hgb Hct MCV MCH RDW Plt Count Lymph % (Auto) [place] % (Auto) Eos % (Auto) Seg Neutrophils % Seg Neuts % (Manual) Lymphocytes % (Manual) Seg Neutrophils # Seg Neutrophils # Man Lymphocytes # (Manual) APTT POC ABG pH ABG pH POC ABG pCO2 POC ABG pO2 ABG pO2 ABG HCO3 ABG Base Excess ABG Hemoglobin VBG pH Oxyhemoglobin Sodium Potassium Chloride Carbon Dioxide BUN Creatinine Glucose POC Glucose 167 H 191 H 135 H Lactic Acid Calcium AST ALT Alkaline Phosphatase CK-MB (CK-2) CK-MB (CK-2) Rel Index Total Protein Albumin TSH Urine WBC (Auto) Salicylates 02/11/17 02/11/17 02/11/17 12:25 17:03 23:59 WBC RBC Hgb Hct MCV MCH RDW Plt Count Lymph % (Auto) [place] % (Auto) Eos % (Auto) Seg Neutrophils % Seg Neuts % (Manual) Lymphocytes % (Manual) Seg Neutrophils # Seg Neutrophils # Man Lymphocytes # (Manual) APTT POC ABG pH ABG pH POC ABG pCO2 POC ABG pO2 ABG pO2 ABG HCO3 ABG Base Excess ABG Hemoglobin VBG pH Oxyhemoglobin Sodium Potassium Chloride Carbon Dioxide BUN Creatinine Glucose POC Glucose 275 H 172 H 215 H Lactic Acid Calcium AST ALT Alkaline Phosphatase CK-MB (CK-2) CK-MB (CK-2) Rel Index Total Protein Albumin TSH Urine WBC (Auto) Salicylates 02/12/17 02/12/17 02/12/17 05:39 11:33 17:55 WBC RBC Hgb Hct MCV MCH RDW Plt Count Lymph % (Auto) [place] % (Auto) Eos % (Auto) Seg Neutrophils % Seg Neuts % (Manual) Lymphocytes % (Manual) Seg Neutrophils # Seg Neutrophils # Man Lymphocytes # (Manual) APTT POC ABG pH ABG pH POC ABG pCO2 POC ABG pO2 ABG pO2 ABG HCO3 ABG Base Excess ABG Hemoglobin VBG pH Oxyhemoglobin Sodium Potassium Chloride Carbon Dioxide BUN Creatinine Glucose POC Glucose 261 H 217 H 172 H Lactic Acid Calcium AST ALT Alkaline Phosphatase CK-MB (CK-2) CK-MB (CK-2) Rel Index Total Protein Albumin TSH Urine WBC (Auto) Salicylates 02/13/17 02/13/17 02/13/17 00:25 06:46 11:26 WBC RBC Hgb Hct MCV MCH RDW Plt Count Lymph % (Auto) [place] % (Auto) Eos % (Auto) Seg Neutrophils % Seg Neuts % (Manual) Lymphocytes % (Manual) Seg Neutrophils # Seg Neutrophils # Man Lymphocytes # (Manual) APTT POC ABG pH ABG pH POC ABG pCO2 POC ABG pO2 ABG pO2 ABG HCO3 ABG Base Excess ABG Hemoglobin VBG pH Oxyhemoglobin Sodium Potassium Chloride Carbon Dioxide BUN Creatinine Glucose POC Glucose 207 H 219 H 231 H Lactic Acid Calcium AST ALT Alkaline Phosphatase CK-MB (CK-2) CK-MB (CK-2) Rel Index Total Protein Albumin TSH Urine WBC (Auto) Salicylates 02/13/17 02/13/17 02/14/17 17:12 23:44 05:44 WBC RBC Hgb Hct MCV MCH RDW Plt Count Lymph % (Auto) [place] % (Auto) Eos % (Auto) Seg Neutrophils % Seg Neuts % (Manual) Lymphocytes % (Manual) Seg Neutrophils # Seg Neutrophils # Man Lymphocytes # (Manual) APTT POC ABG pH ABG pH POC ABG pCO2 POC ABG pO2 ABG pO2 ABG HCO3 ABG Base Excess ABG Hemoglobin VBG pH Oxyhemoglobin Sodium Potassium Chloride Carbon Dioxide BUN Creatinine Glucose POC Glucose 190 H 256 H 184 H Lactic Acid Calcium AST ALT Alkaline Phosphatase CK-MB (CK-2) CK-MB (CK-2) Rel Index Total Protein Albumin TSH Urine WBC (Auto) Salicylates 02/14/17 02/14/17 02/14/17 12:21 17:57 23:18 WBC RBC Hgb Hct MCV MCH RDW Plt Count Lymph % (Auto) [place] % (Auto) Eos % (Auto) Seg Neutrophils % Seg Neuts % (Manual) Lymphocytes % (Manual) Seg Neutrophils # Seg Neutrophils # Man Lymphocytes # (Manual) APTT POC ABG pH ABG pH POC ABG pCO2 POC ABG pO2 ABG pO2 ABG HCO3 ABG Base Excess ABG Hemoglobin VBG pH Oxyhemoglobin Sodium Potassium Chloride Carbon Dioxide BUN Creatinine Glucose POC Glucose 233 H 155 H 165 H Lactic Acid Calcium AST ALT Alkaline Phosphatase CK-MB (CK-2) CK-MB (CK-2) Rel Index Total Protein Albumin TSH Urine WBC (Auto) Salicylates 02/15/17 02/15/17 02/15/17 05:33 11:45 17:20 WBC RBC Hgb Hct MCV MCH RDW Plt Count Lymph % (Auto) [place] % (Auto) Eos % (Auto) Seg Neutrophils % Seg Neuts % (Manual) Lymphocytes % (Manual) Seg Neutrophils # Seg Neutrophils # Man Lymphocytes # (Manual) APTT POC ABG pH ABG pH POC ABG pCO2 POC ABG pO2 ABG pO2 ABG HCO3 ABG Base Excess ABG Hemoglobin VBG pH Oxyhemoglobin Sodium Potassium Chloride Carbon Dioxide BUN Creatinine Glucose POC Glucose 239 H 130 H 189 H Lactic Acid Calcium AST ALT Alkaline Phosphatase CK-MB (CK-2) CK-MB (CK-2) Rel Index Total Protein Albumin TSH Urine WBC (Auto) Salicylates 02/16/17 02/16/17 02/16/17 00:14 05:09 12:31 WBC RBC Hgb Hct MCV MCH RDW Plt Count Lymph % (Auto) [place] % (Auto) Eos % (Auto) Seg Neutrophils % Seg Neuts % (Manual) Lymphocytes % (Manual) Seg Neutrophils # Seg Neutrophils # Man Lymphocytes # (Manual) APTT POC ABG pH ABG pH POC ABG pCO2 POC ABG pO2 ABG pO2 ABG HCO3 ABG Base Excess ABG Hemoglobin VBG pH Oxyhemoglobin Sodium Potassium Chloride Carbon Dioxide BUN Creatinine Glucose POC Glucose 197 H 226 H 178 H Lactic Acid Calcium AST ALT Alkaline Phosphatase CK-MB (CK-2) CK-MB (CK-2) Rel Index Total Protein Albumin TSH Urine WBC (Auto) Salicylates 02/16/17 02/16/17 02/17/17 16:35 23:49 05:37 WBC RBC Hgb Hct MCV MCH RDW Plt Count Lymph % (Auto) [place] % (Auto) Eos % (Auto) Seg Neutrophils % Seg Neuts % (Manual) Lymphocytes % (Manual) Seg Neutrophils # Seg Neutrophils # Man Lymphocytes # (Manual) APTT POC ABG pH ABG pH POC ABG pCO2 POC ABG pO2 ABG pO2 ABG HCO3 ABG Base Excess ABG Hemoglobin VBG pH Oxyhemoglobin Sodium Potassium Chloride Carbon Dioxide BUN Creatinine Glucose POC Glucose 174 H 62 L 153 H Lactic Acid Calcium AST ALT Alkaline Phosphatase CK-MB (CK-2) CK-MB (CK-2) Rel Index Total Protein Albumin TSH Urine WBC (Auto) Salicylates 02/17/17 02/17/17 02/17/17 11:39 17:02 22:24 WBC RBC Hgb Hct MCV MCH RDW Plt Count Lymph % (Auto) [place] % (Auto) Eos % (Auto) Seg Neutrophils % Seg Neuts % (Manual) Lymphocytes % (Manual) Seg Neutrophils # Seg Neutrophils # Man Lymphocytes # (Manual) APTT POC ABG pH ABG pH POC ABG pCO2 POC ABG pO2 ABG pO2 ABG HCO3 ABG Base Excess ABG Hemoglobin VBG pH Oxyhemoglobin Sodium Potassium Chloride Carbon Dioxide BUN Creatinine Glucose POC Glucose 231 H 112 H 116 H Lactic Acid Calcium AST ALT Alkaline Phosphatase CK-MB (CK-2) CK-MB (CK-2) Rel Index Total Protein Albumin TSH Urine WBC (Auto) Salicylates 02/18/17 02/19/17 02/19/17 15:34 05:09 07:57 WBC RBC Hgb Hct MCV MCH RDW Plt Count Lymph % (Auto) [place] % (Auto) Eos % (Auto) Seg Neutrophils % Seg Neuts % (Manual) Lymphocytes % (Manual) Seg Neutrophils # Seg Neutrophils # Man Lymphocytes # (Manual) APTT POC ABG pH ABG pH POC ABG pCO2 POC ABG pO2 ABG pO2 ABG HCO3 ABG Base Excess ABG Hemoglobin VBG pH Oxyhemoglobin Sodium Potassium Chloride Carbon Dioxide BUN Creatinine Glucose POC Glucose 215 H 218 H 283 H Lactic Acid Calcium AST ALT Alkaline Phosphatase CK-MB (CK-2) CK-MB (CK-2) Rel Index Total Protein Albumin TSH Urine WBC (Auto) Salicylates 02/19/17 02/19/17 02/20/17 14:49 22:10 05:10 WBC RBC Hgb Hct MCV MCH RDW Plt Count Lymph % (Auto) [place] % (Auto) Eos % (Auto) Seg Neutrophils % Seg Neuts % (Manual) Lymphocytes % (Manual) Seg Neutrophils # Seg Neutrophils # Man Lymphocytes # (Manual) APTT POC ABG pH ABG pH POC ABG pCO2 POC ABG pO2 ABG pO2 ABG HCO3 ABG Base Excess ABG Hemoglobin VBG pH Oxyhemoglobin Sodium Potassium Chloride Carbon Dioxide BUN Creatinine Glucose POC Glucose 290 H 169 H 209 H Lactic Acid Calcium AST ALT Alkaline Phosphatase CK-MB (CK-2) CK-MB (CK-2) Rel Index Total Protein Albumin TSH Urine WBC (Auto) Salicylates 02/20/17 02/20/17 02/21/17 15:05 21:52 02:00 WBC RBC Hgb Hct MCV MCH RDW Plt Count Lymph % (Auto) [place] % (Auto) Eos % (Auto) Seg Neutrophils % Seg Neuts % (Manual) Lymphocytes % (Manual) Seg Neutrophils # Seg Neutrophils # Man Lymphocytes # (Manual) APTT POC ABG pH ABG pH POC ABG pCO2 POC ABG pO2 ABG pO2 ABG HCO3 ABG Base Excess ABG Hemoglobin VBG pH Oxyhemoglobin Sodium Potassium Chloride Carbon Dioxide BUN Creatinine Glucose POC Glucose 172 H 209 H 216 H Lactic Acid Calcium AST ALT Alkaline Phosphatase CK-MB (CK-2) CK-MB (CK-2) Rel Index Total Protein Albumin TSH Urine WBC (Auto) Salicylates 02/21/17 02/21/17 02/21/17 04:54 14:43 17:47 WBC RBC Hgb Hct MCV MCH RDW Plt Count Lymph % (Auto) [place] % (Auto) Eos % (Auto) Seg Neutrophils % Seg Neuts % (Manual) Lymphocytes % (Manual) Seg Neutrophils # Seg Neutrophils # Man Lymphocytes # (Manual) APTT POC ABG pH ABG pH POC ABG pCO2 POC ABG pO2 ABG pO2 ABG HCO3 ABG Base Excess ABG Hemoglobin VBG pH Oxyhemoglobin Sodium Potassium Chloride Carbon Dioxide BUN Creatinine Glucose POC Glucose 227 H 290 H 220 H Lactic Acid Calcium AST ALT Alkaline Phosphatase CK-MB (CK-2) CK-MB (CK-2) Rel Index Total Protein Albumin TSH Urine WBC (Auto) Salicylates 02/21/17 02/22/17 02/22/17 22:02 04:52 15:25 WBC RBC Hgb Hct MCV MCH RDW Plt Count Lymph % (Auto) [place] % (Auto) Eos % (Auto) Seg Neutrophils % Seg Neuts % (Manual) Lymphocytes % (Manual) Seg Neutrophils # Seg Neutrophils # Man Lymphocytes # (Manual) APTT POC ABG pH ABG pH POC ABG pCO2 POC ABG pO2 ABG pO2 ABG HCO3 ABG Base Excess ABG Hemoglobin VBG pH Oxyhemoglobin Sodium Potassium Chloride Carbon Dioxide BUN Creatinine Glucose POC Glucose 246 H 212 H 236 H Lactic Acid Calcium AST ALT Alkaline Phosphatase CK-MB (CK-2) CK-MB (CK-2) Rel Index Total Protein Albumin TSH Urine WBC (Auto) Salicylates 02/22/17 02/23/17 02/23/17 21:33 06:04 10:00 WBC RBC Hgb Hct MCV MCH RDW Plt Count Lymph % (Auto) [place] % (Auto) Eos % (Auto) Seg Neutrophils % Seg Neuts % (Manual) Lymphocytes % (Manual) Seg Neutrophils # Seg Neutrophils # Man Lymphocytes # (Manual) APTT POC ABG pH ABG pH POC ABG pCO2 POC ABG pO2 ABG pO2 ABG HCO3 ABG Base Excess ABG Hemoglobin VBG pH Oxyhemoglobin Sodium Potassium Chloride Carbon Dioxide BUN Creatinine Glucose POC Glucose 255 H 208 H 174 H Lactic Acid Calcium AST ALT Alkaline Phosphatase CK-MB (CK-2) CK-MB (CK-2) Rel Index Total Protein Albumin TSH Urine WBC (Auto) Salicylates 02/23/17 02/23/17 02/23/17 12:52 17:15 21:51 WBC RBC Hgb Hct MCV MCH RDW Plt Count Lymph % (Auto) [place] % (Auto) Eos % (Auto) Seg Neutrophils % Seg Neuts % (Manual) Lymphocytes % (Manual) Seg Neutrophils # Seg Neutrophils # Man Lymphocytes # (Manual) APTT POC ABG pH ABG pH POC ABG pCO2 POC ABG pO2 ABG pO2 ABG HCO3 ABG Base Excess ABG Hemoglobin VBG pH Oxyhemoglobin Sodium Potassium Chloride Carbon Dioxide BUN Creatinine Glucose POC Glucose 203 H 269 H 205 H Lactic Acid Calcium AST ALT Alkaline Phosphatase CK-MB (CK-2) CK-MB (CK-2) Rel Index Total Protein Albumin TSH Urine WBC (Auto) Salicylates 02/24/17 02/24/17 02/24/17 10:23 17:45 21:24 WBC RBC Hgb Hct MCV MCH RDW Plt Count Lymph % (Auto) [place] % (Auto) Eos % (Auto) Seg Neutrophils % Seg Neuts % (Manual) Lymphocytes % (Manual) Seg Neutrophils # Seg Neutrophils # Man Lymphocytes # (Manual) APTT POC ABG pH ABG pH POC ABG pCO2 POC ABG pO2 ABG pO2 ABG HCO3 ABG Base Excess ABG Hemoglobin VBG pH Oxyhemoglobin Sodium Potassium Chloride Carbon Dioxide BUN Creatinine Glucose POC Glucose 280 H 239 H 254 H Lactic Acid Calcium AST ALT Alkaline Phosphatase CK-MB (CK-2) CK-MB (CK-2) Rel Index Total Protein Albumin TSH Urine WBC (Auto) Salicylates 02/25/17 02/25/17 02/25/17 02:12 05:17 14:32 WBC RBC Hgb Hct MCV MCH RDW Plt Count Lymph % (Auto) [place] % (Auto) Eos % (Auto) Seg Neutrophils % Seg Neuts % (Manual) Lymphocytes % (Manual) Seg Neutrophils # Seg Neutrophils # Man Lymphocytes # (Manual) APTT POC ABG pH ABG pH POC ABG pCO2 POC ABG pO2 ABG pO2 ABG HCO3 ABG Base Excess ABG Hemoglobin VBG pH Oxyhemoglobin Sodium Potassium Chloride Carbon Dioxide BUN Creatinine Glucose POC Glucose 296 H 332 H 353 H Lactic Acid Calcium AST ALT Alkaline Phosphatase CK-MB (CK-2) CK-MB (CK-2) Rel Index Total Protein Albumin TSH Urine WBC (Auto) Salicylates 02/25/17 02/26/17 02/26/17 22:14 00:37 05:52 WBC RBC Hgb Hct MCV MCH RDW Plt Count Lymph % (Auto) [place] % (Auto) Eos % (Auto) Seg Neutrophils % Seg Neuts % (Manual) Lymphocytes % (Manual) Seg Neutrophils # Seg Neutrophils # Man Lymphocytes # (Manual) APTT POC ABG pH ABG pH POC ABG pCO2 POC ABG pO2 ABG pO2 ABG HCO3 ABG Base Excess ABG Hemoglobin VBG pH Oxyhemoglobin Sodium Potassium Chloride Carbon Dioxide BUN Creatinine Glucose POC Glucose 201 H 233 H 269 H Lactic Acid Calcium AST ALT Alkaline Phosphatase CK-MB (CK-2) CK-MB (CK-2) Rel Index Total Protein Albumin TSH Urine WBC (Auto) Salicylates 02/26/17 02/26/17 02/26/17 11:48 13:49 21:26 WBC RBC Hgb Hct MCV MCH RDW Plt Count Lymph % (Auto) [place] % (Auto) Eos % (Auto) Seg Neutrophils % Seg Neuts % (Manual) Lymphocytes % (Manual) Seg Neutrophils # Seg Neutrophils # Man Lymphocytes # (Manual) APTT POC ABG pH ABG pH POC ABG pCO2 POC ABG pO2 ABG pO2 ABG HCO3 ABG Base Excess ABG Hemoglobin VBG pH Oxyhemoglobin Sodium Potassium Chloride Carbon Dioxide BUN Creatinine Glucose POC Glucose 333 H 322 H 244 H Lactic Acid Calcium AST ALT Alkaline Phosphatase CK-MB (CK-2) CK-MB (CK-2) Rel Index Total Protein Albumin TSH Urine WBC (Auto) Salicylates 02/27/17 02/27/17 02/27/17 05:27 13:51 21:48 WBC RBC Hgb Hct MCV MCH RDW Plt Count Lymph % (Auto) [place] % (Auto) Eos % (Auto) Seg Neutrophils % Seg Neuts % (Manual) Lymphocytes % (Manual) Seg Neutrophils # Seg Neutrophils # Man Lymphocytes # (Manual) APTT POC ABG pH ABG pH POC ABG pCO2 POC ABG pO2 ABG pO2 ABG HCO3 ABG Base Excess ABG Hemoglobin VBG pH Oxyhemoglobin Sodium Potassium Chloride Carbon Dioxide BUN Creatinine Glucose POC Glucose 217 H 239 H 254 H Lactic Acid Calcium AST ALT Alkaline Phosphatase CK-MB (CK-2) CK-MB (CK-2) Rel Index Total Protein Albumin TSH Urine WBC (Auto) Salicylates 02/28/17 02/28/17 02/28/17 05:38 11:00 19:44 WBC RBC Hgb Hct MCV MCH RDW Plt Count Lymph % (Auto) [place] % (Auto) Eos % (Auto) Seg Neutrophils % Seg Neuts % (Manual) Lymphocytes % (Manual) Seg Neutrophils # Seg Neutrophils # Man Lymphocytes # (Manual) APTT POC ABG pH ABG pH POC ABG pCO2 POC ABG pO2 ABG pO2 ABG HCO3 ABG Base Excess ABG Hemoglobin VBG pH Oxyhemoglobin Sodium Potassium Chloride Carbon Dioxide BUN Creatinine Glucose POC Glucose 325 H 203 H 116 H Lactic Acid Calcium AST ALT Alkaline Phosphatase CK-MB (CK-2) CK-MB (CK-2) Rel Index Total Protein Albumin TSH Urine WBC (Auto) Salicylates 03/01/17 03/01/17 03/01/17 00:08 05:31 12:17 WBC RBC Hgb Hct MCV MCH RDW Plt Count Lymph % (Auto) [place] % (Auto) Eos % (Auto) Seg Neutrophils % Seg Neuts % (Manual) Lymphocytes % (Manual) Seg Neutrophils # Seg Neutrophils # Man Lymphocytes # (Manual) APTT POC ABG pH ABG pH POC ABG pCO2 POC ABG pO2 ABG pO2 ABG HCO3 ABG Base Excess ABG Hemoglobin VBG pH Oxyhemoglobin Sodium Potassium Chloride Carbon Dioxide BUN Creatinine Glucose POC Glucose 202 H 183 H 184 H Lactic Acid Calcium AST ALT Alkaline Phosphatase CK-MB (CK-2) CK-MB (CK-2) Rel Index Total Protein Albumin TSH Urine WBC (Auto) Salicylates 03/02/17 03/02/17 03/02/17 00:12 05:58 18:22 WBC RBC Hgb Hct MCV MCH RDW Plt Count Lymph % (Auto) [place] % (Auto) Eos % (Auto) Seg Neutrophils % Seg Neuts % (Manual) Lymphocytes % (Manual) Seg Neutrophils # Seg Neutrophils # Man Lymphocytes # (Manual) APTT POC ABG pH ABG pH POC ABG pCO2 POC ABG pO2 ABG pO2 ABG HCO3 ABG Base Excess ABG Hemoglobin VBG pH Oxyhemoglobin Sodium Potassium Chloride Carbon Dioxide BUN Creatinine Glucose POC Glucose 117 H 176 H 156 H Lactic Acid Calcium AST ALT Alkaline Phosphatase CK-MB (CK-2) CK-MB (CK-2) Rel Index Total Protein Albumin TSH Urine WBC (Auto) Salicylates 03/02/17 03/03/17 03/03/17 23:51 05:44 11:32 WBC RBC Hgb Hct MCV MCH RDW Plt Count Lymph % (Auto) [place] % (Auto) Eos % (Auto) Seg Neutrophils % Seg Neuts % (Manual) Lymphocytes % (Manual) Seg Neutrophils # Seg Neutrophils # Man Lymphocytes # (Manual) APTT POC ABG pH ABG pH POC ABG pCO2 POC ABG pO2 ABG pO2 ABG HCO3 ABG Base Excess ABG Hemoglobin VBG pH Oxyhemoglobin Sodium Potassium Chloride Carbon Dioxide BUN Creatinine Glucose POC Glucose 211 H 117 H 133 H Lactic Acid Calcium AST ALT Alkaline Phosphatase CK-MB (CK-2) CK-MB (CK-2) Rel Index Total Protein Albumin TSH Urine WBC (Auto) Salicylates 03/03/17 03/03/17 03/04/17 17:43 23:17 05:30 WBC RBC Hgb Hct MCV MCH RDW Plt Count Lymph % (Auto) [place] % (Auto) Eos % (Auto) Seg Neutrophils % Seg Neuts % (Manual) Lymphocytes % (Manual) Seg Neutrophils # Seg Neutrophils # Man Lymphocytes # (Manual) APTT POC ABG pH ABG pH POC ABG pCO2 POC ABG pO2 ABG pO2 ABG HCO3 ABG Base Excess ABG Hemoglobin VBG pH Oxyhemoglobin Sodium Potassium Chloride Carbon Dioxide BUN Creatinine Glucose POC Glucose 206 H 170 H 126 H Lactic Acid Calcium AST ALT Alkaline Phosphatase CK-MB (CK-2) CK-MB (CK-2) Rel Index Total Protein Albumin TSH Urine WBC (Auto) Salicylates 03/04/17 03/04/17 03/05/17 12:17 17:27 05:20 WBC RBC Hgb Hct MCV MCH RDW Plt Count Lymph % (Auto) [place] % (Auto) Eos % (Auto) Seg Neutrophils % Seg Neuts % (Manual) Lymphocytes % (Manual) Seg Neutrophils # Seg Neutrophils # Man Lymphocytes # (Manual) APTT POC ABG pH ABG pH POC ABG pCO2 POC ABG pO2 ABG pO2 ABG HCO3 ABG Base Excess ABG Hemoglobin VBG pH Oxyhemoglobin Sodium Potassium Chloride Carbon Dioxide BUN Creatinine Glucose POC Glucose 135 H 121 H 185 H Lactic Acid Calcium AST ALT Alkaline Phosphatase CK-MB (CK-2) CK-MB (CK-2) Rel Index Total Protein Albumin TSH Urine WBC (Auto) Salicylates 03/05/17 03/06/17 03/06/17 11:50 11:52 17:34 WBC RBC Hgb Hct MCV MCH RDW Plt Count Lymph % (Auto) [place] % (Auto) Eos % (Auto) Seg Neutrophils % Seg Neuts % (Manual) Lymphocytes % (Manual) Seg Neutrophils # Seg Neutrophils # Man Lymphocytes # (Manual) APTT POC ABG pH ABG pH POC ABG pCO2 POC ABG pO2 ABG pO2 ABG HCO3 ABG Base Excess ABG Hemoglobin VBG pH Oxyhemoglobin Sodium Potassium Chloride Carbon Dioxide BUN Creatinine Glucose POC Glucose 116 H 133 H 181 H Lactic Acid Calcium AST ALT Alkaline Phosphatase CK-MB (CK-2) CK-MB (CK-2) Rel Index Total Protein Albumin TSH Urine WBC (Auto) Salicylates 03/07/17 03/07/17 03/07/17 05:21 11:36 17:49 WBC RBC Hgb Hct MCV MCH RDW Plt Count Lymph % (Auto) [place] % (Auto) Eos % (Auto) Seg Neutrophils % Seg Neuts % (Manual) Lymphocytes % (Manual) Seg Neutrophils # Seg Neutrophils # Man Lymphocytes # (Manual) APTT POC ABG pH ABG pH POC ABG pCO2 POC ABG pO2 ABG pO2 ABG HCO3 ABG Base Excess ABG Hemoglobin VBG pH Oxyhemoglobin Sodium Potassium Chloride Carbon Dioxide BUN Creatinine Glucose POC Glucose 159 H 137 H 158 H Lactic Acid Calcium AST ALT Alkaline Phosphatase CK-MB (CK-2) CK-MB (CK-2) Rel Index Total Protein Albumin TSH Urine WBC (Auto) Salicylates 03/08/17 03/08/17 03/08/17 05:51 13:58 23:50 WBC RBC Hgb Hct MCV MCH RDW Plt Count Lymph % (Auto) [place] % (Auto) Eos % (Auto) Seg Neutrophils % Seg Neuts % (Manual) Lymphocytes % (Manual) Seg Neutrophils # Seg Neutrophils # Man Lymphocytes # (Manual) APTT POC ABG pH ABG pH POC ABG pCO2 POC ABG pO2 ABG pO2 ABG HCO3 ABG Base Excess ABG Hemoglobin VBG pH Oxyhemoglobin Sodium Potassium Chloride Carbon Dioxide BUN Creatinine Glucose POC Glucose 122 H 182 H 114 H Lactic Acid Calcium AST ALT Alkaline Phosphatase CK-MB (CK-2) CK-MB (CK-2) Rel Index Total Protein Albumin TSH Urine WBC (Auto) Salicylates 03/09/17 03/09/17 03/09/17 05:21 05:51 05:51 WBC RBC 3.61 L Hgb 9.5 L Hct 28.3 L MCV 79 L MCH 26 L RDW 17.8 H Plt Count Lymph % (Auto) [place] % (Auto) Eos % (Auto) Seg Neutrophils % Seg Neuts % (Manual) Lymphocytes % (Manual) Seg Neutrophils # Seg Neutrophils # Man Lymphocytes # (Manual) APTT POC ABG pH ABG pH POC ABG pCO2 POC ABG pO2 ABG pO2 ABG HCO3 ABG Base Excess ABG Hemoglobin VBG pH Oxyhemoglobin Sodium 134 L Potassium Chloride 95.5 L Carbon Dioxide BUN 33 H Creatinine 0.5 L Glucose 143 H POC Glucose 153 H Lactic Acid Calcium AST ALT Alkaline Phosphatase CK-MB (CK-2) CK-MB (CK-2) Rel Index Total Protein Albumin TSH Urine WBC (Auto) Salicylates 03/09/17 03/09/17 03/09/17 12:10 18:13 21:00 WBC RBC Hgb Hct MCV MCH RDW Plt Count Lymph % (Auto) [place] % (Auto) Eos % (Auto) Seg Neutrophils % Seg Neuts % (Manual) Lymphocytes % (Manual) Seg Neutrophils # Seg Neutrophils # Man Lymphocytes # (Manual) APTT POC ABG pH ABG pH POC ABG pCO2 POC ABG pO2 ABG pO2 ABG HCO3 ABG Base Excess ABG Hemoglobin VBG pH Oxyhemoglobin Sodium Potassium Chloride Carbon Dioxide BUN Creatinine Glucose POC Glucose 203 H 221 H 198 H Lactic Acid Calcium AST ALT Alkaline Phosphatase CK-MB (CK-2) CK-MB (CK-2) Rel Index Total Protein Albumin TSH Urine WBC (Auto) Salicylates 03/09/17 03/10/17 03/10/17 23:58 05:09 05:09 WBC RBC Hgb 10.3 L Hct 30.5 L MCV 78 L MCH 26 L RDW 17.9 H Plt Count Lymph % (Auto) [place] % (Auto) 10.0 H Eos % (Auto) 6.0 H Seg Neutrophils % Seg Neuts % (Manual) Lymphocytes % (Manual) Seg Neutrophils # Seg Neutrophils # Man Lymphocytes # (Manual) APTT POC ABG pH ABG pH POC ABG pCO2 POC ABG pO2 ABG pO2 ABG HCO3 ABG Base Excess ABG Hemoglobin VBG pH Oxyhemoglobin Sodium 132 L Potassium Chloride 92.2 L Carbon Dioxide BUN 33 H Creatinine 0.5 L Glucose 50 L POC Glucose 167 H Lactic Acid Calcium AST ALT Alkaline Phosphatase CK-MB (CK-2) CK-MB (CK-2) Rel Index Total Protein Albumin TSH Urine WBC (Auto) Salicylates 03/10/17 03/10/17 03/10/17 05:33 05:34 11:48 WBC RBC Hgb Hct MCV MCH RDW Plt Count Lymph % (Auto) [place] % (Auto) Eos % (Auto) Seg Neutrophils % Seg Neuts % (Manual) Lymphocytes % (Manual) Seg Neutrophils # Seg Neutrophils # Man Lymphocytes # (Manual) APTT POC ABG pH ABG pH POC ABG pCO2 POC ABG pO2 ABG pO2 ABG HCO3 ABG Base Excess ABG Hemoglobin VBG pH Oxyhemoglobin Sodium Potassium Chloride Carbon Dioxide BUN Creatinine Glucose POC Glucose 52 L 53 L 148 H Lactic Acid Calcium AST ALT Alkaline Phosphatase CK-MB (CK-2) CK-MB (CK-2) Rel Index Total Protein Albumin TSH Urine WBC (Auto) Salicylates 03/10/17 03/10/17 03/11/17 17:53 23:47 05:18 WBC RBC Hgb Hct MCV MCH RDW Plt Count Lymph % (Auto) [place] % (Auto) Eos % (Auto) Seg Neutrophils % Seg Neuts % (Manual) Lymphocytes % (Manual) Seg Neutrophils # Seg Neutrophils # Man Lymphocytes # (Manual) APTT POC ABG pH ABG pH POC ABG pCO2 POC ABG pO2 ABG pO2 ABG HCO3 ABG Base Excess ABG Hemoglobin VBG pH Oxyhemoglobin Sodium Potassium Chloride Carbon Dioxide BUN Creatinine Glucose POC Glucose 189 H 398 H 126 H Lactic Acid Calcium AST ALT Alkaline Phosphatase CK-MB (CK-2) CK-MB (CK-2) Rel Index Total Protein Albumin TSH Urine WBC (Auto) Salicylates 03/11/17 03/11/17 03/11/17 11:53 17:30 23:10 WBC RBC Hgb Hct MCV MCH RDW Plt Count Lymph % (Auto) [place] % (Auto) Eos % (Auto) Seg Neutrophils % Seg Neuts % (Manual) Lymphocytes % (Manual) Seg Neutrophils # Seg Neutrophils # Man Lymphocytes # (Manual) APTT POC ABG pH ABG pH POC ABG pCO2 POC ABG pO2 ABG pO2 ABG HCO3 ABG Base Excess ABG Hemoglobin VBG pH Oxyhemoglobin Sodium Potassium Chloride Carbon Dioxide BUN Creatinine Glucose POC Glucose 198 H 142 H 244 H Lactic Acid Calcium AST ALT Alkaline Phosphatase CK-MB (CK-2) CK-MB (CK-2) Rel Index Total Protein Albumin TSH Urine WBC (Auto) Salicylates 03/12/17 03/12/17 03/12/17 04:36 11:49 17:23 WBC RBC Hgb Hct MCV MCH RDW Plt Count Lymph % (Auto) [place] % (Auto) Eos % (Auto) Seg Neutrophils % Seg Neuts % (Manual) Lymphocytes % (Manual) Seg Neutrophils # Seg Neutrophils # Man Lymphocytes # (Manual) APTT POC ABG pH ABG pH POC ABG pCO2 POC ABG pO2 ABG pO2 ABG HCO3 ABG Base Excess ABG Hemoglobin VBG pH Oxyhemoglobin Sodium Potassium Chloride Carbon Dioxide BUN Creatinine Glucose POC Glucose 205 H 197 H 209 H Lactic Acid Calcium AST ALT Alkaline Phosphatase CK-MB (CK-2) CK-MB (CK-2) Rel Index Total Protein Albumin TSH Urine WBC (Auto) Salicylates 03/12/17 03/13/17 03/13/17 23:51 05:32 11:43 WBC RBC Hgb Hct MCV MCH RDW Plt Count Lymph % (Auto) [place] % (Auto) Eos % (Auto) Seg Neutrophils % Seg Neuts % (Manual) Lymphocytes % (Manual) Seg Neutrophils # Seg Neutrophils # Man Lymphocytes # (Manual) APTT POC ABG pH ABG pH POC ABG pCO2 POC ABG pO2 ABG pO2 ABG HCO3 ABG Base Excess ABG Hemoglobin VBG pH Oxyhemoglobin Sodium Potassium Chloride Carbon Dioxide BUN Creatinine Glucose POC Glucose 210 H 154 H 164 H Lactic Acid Calcium AST ALT Alkaline Phosphatase CK-MB (CK-2) CK-MB (CK-2) Rel Index Total Protein Albumin TSH Urine WBC (Auto) Salicylates 03/13/17 03/13/17 03/14/17 17:11 23:26 05:42 WBC RBC Hgb Hct MCV MCH RDW Plt Count Lymph % (Auto) [place] % (Auto) Eos % (Auto) Seg Neutrophils % Seg Neuts % (Manual) Lymphocytes % (Manual) Seg Neutrophils # Seg Neutrophils # Man Lymphocytes # (Manual) APTT POC ABG pH ABG pH POC ABG pCO2 POC ABG pO2 ABG pO2 ABG HCO3 ABG Base Excess ABG Hemoglobin VBG pH Oxyhemoglobin Sodium Potassium Chloride Carbon Dioxide BUN Creatinine Glucose POC Glucose 195 H 240 H 230 H Lactic Acid Calcium AST ALT Alkaline Phosphatase CK-MB (CK-2) CK-MB (CK-2) Rel Index Total Protein Albumin TSH Urine WBC (Auto) Salicylates 03/14/17 03/14/17 03/14/17 14:04 17:34 23:42 WBC RBC Hgb Hct MCV MCH RDW Plt Count Lymph % (Auto) [place] % (Auto) Eos % (Auto) Seg Neutrophils % Seg Neuts % (Manual) Lymphocytes % (Manual) Seg Neutrophils # Seg Neutrophils # Man Lymphocytes # (Manual) APTT POC ABG pH ABG pH POC ABG pCO2 POC ABG pO2 ABG pO2 ABG HCO3 ABG Base Excess ABG Hemoglobin VBG pH Oxyhemoglobin Sodium Potassium Chloride Carbon Dioxide BUN Creatinine Glucose POC Glucose 227 H 186 H 225 H Lactic Acid Calcium AST ALT Alkaline Phosphatase CK-MB (CK-2) CK-MB (CK-2) Rel Index Total Protein Albumin TSH Urine WBC (Auto) Salicylates 03/15/17 03/15/17 03/15/17 05:21 17:13 21:37 WBC RBC Hgb Hct MCV MCH RDW Plt Count Lymph % (Auto) [place] % (Auto) Eos % (Auto) Seg Neutrophils % Seg Neuts % (Manual) Lymphocytes % (Manual) Seg Neutrophils # Seg Neutrophils # Man Lymphocytes # (Manual) APTT POC ABG pH ABG pH POC ABG pCO2 POC ABG pO2 ABG pO2 ABG HCO3 ABG Base Excess ABG Hemoglobin VBG pH Oxyhemoglobin Sodium Potassium Chloride Carbon Dioxide BUN Creatinine Glucose POC Glucose 244 H 203 H 216 H Lactic Acid Calcium AST ALT Alkaline Phosphatase CK-MB (CK-2) CK-MB (CK-2) Rel Index Total Protein Albumin TSH Urine WBC (Auto) Salicylates 03/16/17 03/16/17 03/16/17 05:52 18:07 21:54 WBC RBC Hgb Hct MCV MCH RDW Plt Count Lymph % (Auto) [place] % (Auto) Eos % (Auto) Seg Neutrophils % Seg Neuts % (Manual) Lymphocytes % (Manual) Seg Neutrophils # Seg Neutrophils # Man Lymphocytes # (Manual) APTT POC ABG pH ABG pH POC ABG pCO2 POC ABG pO2 ABG pO2 ABG HCO3 ABG Base Excess ABG Hemoglobin VBG pH Oxyhemoglobin Sodium Potassium Chloride Carbon Dioxide BUN Creatinine Glucose POC Glucose 248 H 254 H 244 H Lactic Acid Calcium AST ALT Alkaline Phosphatase CK-MB (CK-2) CK-MB (CK-2) Rel Index Total Protein Albumin TSH Urine WBC (Auto) Salicylates 03/17/17 03/17/17 03/17/17 07:07 07:42 07:43 WBC RBC Hgb 9.7 L Hct 29.1 L MCV 78 L MCH 26 L RDW 17.4 H Plt Count Lymph % (Auto) [place] % (Auto) Eos % (Auto) Seg Neutrophils % Seg Neuts % (Manual) Lymphocytes % (Manual) Seg Neutrophils # Seg Neutrophils # Man Lymphocytes # (Manual) APTT POC ABG pH ABG pH POC ABG pCO2 POC ABG pO2 ABG pO2 ABG HCO3 ABG Base Excess ABG Hemoglobin VBG pH Oxyhemoglobin Sodium Potassium Chloride 96.6 L Carbon Dioxide BUN 30 H Creatinine 0.5 L Glucose 251 H POC Glucose 222 H Lactic Acid Calcium AST ALT Alkaline Phosphatase CK-MB (CK-2) CK-MB (CK-2) Rel Index Total Protein Albumin TSH Urine WBC (Auto) Salicylates 03/17/17 03/17/17 03/18/17 14:08 21:20 14:24 WBC RBC Hgb Hct MCV MCH RDW Plt Count Lymph % (Auto) [place] % (Auto) Eos % (Auto) Seg Neutrophils % Seg Neuts % (Manual) Lymphocytes % (Manual) Seg Neutrophils # Seg Neutrophils # Man Lymphocytes # (Manual) APTT POC ABG pH ABG pH POC ABG pCO2 POC ABG pO2 ABG pO2 ABG HCO3 ABG Base Excess ABG Hemoglobin VBG pH Oxyhemoglobin Sodium Potassium Chloride Carbon Dioxide BUN Creatinine Glucose POC Glucose 281 H 239 H 195 H Lactic Acid Calcium AST ALT Alkaline Phosphatase CK-MB (CK-2) CK-MB (CK-2) Rel Index Total Protein Albumin TSH Urine WBC (Auto) Salicylates 03/18/17 03/19/17 03/19/17 21:37 04:57 14:23 WBC RBC Hgb Hct MCV MCH RDW Plt Count Lymph % (Auto) [place] % (Auto) Eos % (Auto) Seg Neutrophils % Seg Neuts % (Manual) Lymphocytes % (Manual) Seg Neutrophils # Seg Neutrophils # Man Lymphocytes # (Manual) APTT POC ABG pH ABG pH POC ABG pCO2 POC ABG pO2 ABG pO2 ABG HCO3 ABG Base Excess ABG Hemoglobin VBG pH Oxyhemoglobin Sodium Potassium Chloride Carbon Dioxide BUN Creatinine Glucose POC Glucose 227 H 205 H 277 H Lactic Acid Calcium AST ALT Alkaline Phosphatase CK-MB (CK-2) CK-MB (CK-2) Rel Index Total Protein Albumin TSH Urine WBC (Auto) Salicylates 03/19/17 03/19/17 03/20/17 20:31 21:47 04:55 WBC RBC Hgb Hct MCV MCH RDW Plt Count Lymph % (Auto) [place] % (Auto) Eos % (Auto) Seg Neutrophils % Seg Neuts % (Manual) Lymphocytes % (Manual) Seg Neutrophils # Seg Neutrophils # Man Lymphocytes # (Manual) APTT POC ABG pH ABG pH POC ABG pCO2 POC ABG pO2 ABG pO2 ABG HCO3 ABG Base Excess ABG Hemoglobin VBG pH Oxyhemoglobin Sodium Potassium Chloride Carbon Dioxide BUN Creatinine Glucose POC Glucose 256 H 270 H 202 H Lactic Acid Calcium AST ALT Alkaline Phosphatase CK-MB (CK-2) CK-MB (CK-2) Rel Index Total Protein Albumin TSH Urine WBC (Auto) Salicylates 03/20/17 03/20/17 03/21/17 14:09 21:40 05:09 WBC RBC Hgb Hct MCV MCH RDW Plt Count Lymph % (Auto) [place] % (Auto) Eos % (Auto) Seg Neutrophils % Seg Neuts % (Manual) Lymphocytes % (Manual) Seg Neutrophils # Seg Neutrophils # Man Lymphocytes # (Manual) APTT POC ABG pH ABG pH POC ABG pCO2 POC ABG pO2 ABG pO2 ABG HCO3 ABG Base Excess ABG Hemoglobin VBG pH Oxyhemoglobin Sodium Potassium Chloride Carbon Dioxide BUN Creatinine Glucose POC Glucose 200 H 214 H 233 H Lactic Acid Calcium AST ALT Alkaline Phosphatase CK-MB (CK-2) CK-MB (CK-2) Rel Index Total Protein Albumin TSH Urine WBC (Auto) Salicylates 03/21/17 03/21/17 03/22/17 14:06 21:26 05:43 WBC RBC Hgb Hct MCV MCH RDW Plt Count Lymph % (Auto) [place] % (Auto) Eos % (Auto) Seg Neutrophils % Seg Neuts % (Manual) Lymphocytes % (Manual) Seg Neutrophils # Seg Neutrophils # Man Lymphocytes # (Manual) APTT POC ABG pH ABG pH POC ABG pCO2 POC ABG pO2 ABG pO2 ABG HCO3 ABG Base Excess ABG Hemoglobin VBG pH Oxyhemoglobin Sodium Potassium Chloride Carbon Dioxide BUN Creatinine Glucose POC Glucose 250 H 155 H 251 H Lactic Acid Calcium AST ALT Alkaline Phosphatase CK-MB (CK-2) CK-MB (CK-2) Rel Index Total Protein Albumin TSH Urine WBC (Auto) Salicylates 03/22/17 03/22/17 03/23/17 13:46 21:16 00:23 WBC RBC Hgb Hct MCV MCH RDW Plt Count Lymph % (Auto) [place] % (Auto) Eos % (Auto) Seg Neutrophils % Seg Neuts % (Manual) Lymphocytes % (Manual) Seg Neutrophils # Seg Neutrophils # Man Lymphocytes # (Manual) APTT POC ABG pH ABG pH POC ABG pCO2 POC ABG pO2 ABG pO2 ABG HCO3 ABG Base Excess ABG Hemoglobin VBG pH Oxyhemoglobin Sodium Potassium Chloride Carbon Dioxide BUN Creatinine Glucose POC Glucose 269 H 197 H 126 H Lactic Acid Calcium AST ALT Alkaline Phosphatase CK-MB (CK-2) CK-MB (CK-2) Rel Index Total Protein Albumin TSH Urine WBC (Auto) Salicylates 03/23/17 03/23/17 03/23/17 05:39 14:06 21:39 WBC RBC Hgb Hct MCV MCH RDW Plt Count Lymph % (Auto) [place] % (Auto) Eos % (Auto) Seg Neutrophils % Seg Neuts % (Manual) Lymphocytes % (Manual) Seg Neutrophils # Seg Neutrophils # Man Lymphocytes # (Manual) APTT POC ABG pH ABG pH POC ABG pCO2 POC ABG pO2 ABG pO2 ABG HCO3 ABG Base Excess ABG Hemoglobin VBG pH Oxyhemoglobin Sodium Potassium Chloride Carbon Dioxide BUN Creatinine Glucose POC Glucose 234 H 241 H 248 H Lactic Acid Calcium AST ALT Alkaline Phosphatase CK-MB (CK-2) CK-MB (CK-2) Rel Index Total Protein Albumin TSH Urine WBC (Auto) Salicylates 03/24/17 03/24/17 03/25/17 05:06 21:46 05:38 WBC RBC Hgb Hct MCV MCH RDW Plt Count Lymph % (Auto) [place] % (Auto) Eos % (Auto) Seg Neutrophils % Seg Neuts % (Manual) Lymphocytes % (Manual) Seg Neutrophils # Seg Neutrophils # Man Lymphocytes # (Manual) APTT POC ABG pH ABG pH POC ABG pCO2 POC ABG pO2 ABG pO2 ABG HCO3 ABG Base Excess ABG Hemoglobin VBG pH Oxyhemoglobin Sodium Potassium Chloride Carbon Dioxide BUN Creatinine Glucose POC Glucose 232 H 276 H 242 H Lactic Acid Calcium AST ALT Alkaline Phosphatase CK-MB (CK-2) CK-MB (CK-2) Rel Index Total Protein Albumin TSH Urine WBC (Auto) Salicylates 03/25/17 03/25/17 03/26/17 14:30 23:14 13:53 WBC RBC Hgb Hct MCV MCH RDW Plt Count Lymph % (Auto) [place] % (Auto) Eos % (Auto) Seg Neutrophils % Seg Neuts % (Manual) Lymphocytes % (Manual) Seg Neutrophils # Seg Neutrophils # Man Lymphocytes # (Manual) APTT POC ABG pH ABG pH POC ABG pCO2 POC ABG pO2 ABG pO2 ABG HCO3 ABG Base Excess ABG Hemoglobin VBG pH Oxyhemoglobin Sodium Potassium Chloride Carbon Dioxide BUN Creatinine Glucose POC Glucose 246 H 208 H 195 H Lactic Acid Calcium AST ALT Alkaline Phosphatase CK-MB (CK-2) CK-MB (CK-2) Rel Index Total Protein Albumin TSH Urine WBC (Auto) Salicylates 03/26/17 03/27/17 03/27/17 21:58 05:18 14:57 WBC RBC Hgb Hct MCV MCH RDW Plt Count Lymph % (Auto) [place] % (Auto) Eos % (Auto) Seg Neutrophils % Seg Neuts % (Manual) Lymphocytes % (Manual) Seg Neutrophils # Seg Neutrophils # Man Lymphocytes # (Manual) APTT POC ABG pH ABG pH POC ABG pCO2 POC ABG pO2 ABG pO2 ABG HCO3 ABG Base Excess ABG Hemoglobin VBG pH Oxyhemoglobin Sodium Potassium Chloride Carbon Dioxide BUN Creatinine Glucose POC Glucose 241 H 199 H 269 H Lactic Acid Calcium AST ALT Alkaline Phosphatase CK-MB (CK-2) CK-MB (CK-2) Rel Index Total Protein Albumin TSH Urine WBC (Auto) Salicylates 03/27/17 03/28/17 03/28/17 21:33 13:52 21:29 WBC RBC Hgb Hct MCV MCH RDW Plt Count Lymph % (Auto) [place] % (Auto) Eos % (Auto) Seg Neutrophils % Seg Neuts % (Manual) Lymphocytes % (Manual) Seg Neutrophils # Seg Neutrophils # Man Lymphocytes # (Manual) APTT POC ABG pH ABG pH POC ABG pCO2 POC ABG pO2 ABG pO2 ABG HCO3 ABG Base Excess ABG Hemoglobin VBG pH Oxyhemoglobin Sodium Potassium Chloride Carbon Dioxide BUN Creatinine Glucose POC Glucose 214 H 243 H 286 H Lactic Acid Calcium AST ALT Alkaline Phosphatase CK-MB (CK-2) CK-MB (CK-2) Rel Index Total Protein Albumin TSH Urine WBC (Auto) Salicylates 03/29/17 03/29/17 03/29/17 04:32 04:32 13:58 WBC RBC Hgb 10.6 L Hct 32.9 L MCV 78 L MCH 25 L RDW 17.6 H Plt Count Lymph % (Auto) 38.0 H [place] % (Auto) 9.7 H Eos % (Auto) Seg Neutrophils % Seg Neuts % (Manual) Lymphocytes % (Manual) Seg Neutrophils # Seg Neutrophils # Man Lymphocytes # (Manual) APTT POC ABG pH ABG pH POC ABG pCO2 POC ABG pO2 ABG pO2 ABG HCO3 ABG Base Excess ABG Hemoglobin VBG pH Oxyhemoglobin Sodium 132 L Potassium Chloride 94.0 L Carbon Dioxide BUN 28 H Creatinine 0.5 L Glucose 236 H POC Glucose 171 H Lactic Acid Calcium AST ALT 71 H Alkaline Phosphatase 391 H CK-MB (CK-2) CK-MB (CK-2) Rel Index Total Protein 8.3 H Albumin 2.9 L TSH Urine WBC (Auto) Salicylates 03/29/17 03/30/17 03/30/17 20:59 06:07 11:52 WBC RBC Hgb Hct MCV MCH RDW Plt Count Lymph % (Auto) [place] % (Auto) Eos % (Auto) Seg Neutrophils % Seg Neuts % (Manual) Lymphocytes % (Manual) Seg Neutrophils # Seg Neutrophils # Man Lymphocytes # (Manual) APTT POC ABG pH ABG pH POC ABG pCO2 POC ABG pO2 ABG pO2 ABG HCO3 ABG Base Excess ABG Hemoglobin VBG pH Oxyhemoglobin Sodium Potassium Chloride Carbon Dioxide BUN Creatinine Glucose POC Glucose 215 H 259 H 197 H Lactic Acid Calcium AST ALT Alkaline Phosphatase CK-MB (CK-2) CK-MB (CK-2) Rel Index Total Protein Albumin TSH Urine WBC (Auto) Salicylates 03/30/17 03/31/17 03/31/17 21:34 05:42 14:34 WBC RBC Hgb Hct MCV MCH RDW Plt Count Lymph % (Auto) [place] % (Auto) Eos % (Auto) Seg Neutrophils % Seg Neuts % (Manual) Lymphocytes % (Manual) Seg Neutrophils # Seg Neutrophils # Man Lymphocytes # (Manual) APTT POC ABG pH ABG pH POC ABG pCO2 POC ABG pO2 ABG pO2 ABG HCO3 ABG Base Excess ABG Hemoglobin VBG pH Oxyhemoglobin Sodium Potassium Chloride Carbon Dioxide BUN Creatinine Glucose POC Glucose 207 H 184 H 213 H Lactic Acid Calcium AST ALT Alkaline Phosphatase CK-MB (CK-2) CK-MB (CK-2) Rel Index Total Protein Albumin TSH Urine WBC (Auto) Salicylates 03/31/17 04/01/17 04/01/17 21:32 05:53 13:48 WBC RBC Hgb Hct MCV MCH RDW Plt Count Lymph % (Auto) [place] % (Auto) Eos % (Auto) Seg Neutrophils % Seg Neuts % (Manual) Lymphocytes % (Manual) Seg Neutrophils # Seg Neutrophils # Man Lymphocytes # (Manual) APTT POC ABG pH ABG pH POC ABG pCO2 POC ABG pO2 ABG pO2 ABG HCO3 ABG Base Excess ABG Hemoglobin VBG pH Oxyhemoglobin Sodium Potassium Chloride Carbon Dioxide BUN Creatinine Glucose POC Glucose 249 H 225 H 256 H Lactic Acid Calcium AST ALT Alkaline Phosphatase CK-MB (CK-2) CK-MB (CK-2) Rel Index Total Protein Albumin TSH Urine WBC (Auto) Salicylates 04/01/17 04/02/17 04/02/17 21:34 05:32 14:05 WBC RBC Hgb Hct MCV MCH RDW Plt Count Lymph % (Auto) [place] % (Auto) Eos % (Auto) Seg Neutrophils % Seg Neuts % (Manual) Lymphocytes % (Manual) Seg Neutrophils # Seg Neutrophils # Man Lymphocytes # (Manual) APTT POC ABG pH ABG pH POC ABG pCO2 POC ABG pO2 ABG pO2 ABG HCO3 ABG Base Excess ABG Hemoglobin VBG pH Oxyhemoglobin Sodium Potassium Chloride Carbon Dioxide BUN Creatinine Glucose POC Glucose 292 H 220 H 187 H Lactic Acid Calcium AST ALT Alkaline Phosphatase CK-MB (CK-2) CK-MB (CK-2) Rel Index Total Protein Albumin TSH Urine WBC (Auto) Salicylates 04/02/17 04/03/17 04/03/17 21:57 04:49 14:12 WBC RBC Hgb Hct MCV MCH RDW Plt Count Lymph % (Auto) [place] % (Auto) Eos % (Auto) Seg Neutrophils % Seg Neuts % (Manual) Lymphocytes % (Manual) Seg Neutrophils # Seg Neutrophils # Man Lymphocytes # (Manual) APTT POC ABG pH ABG pH POC ABG pCO2 POC ABG pO2 ABG pO2 ABG HCO3 ABG Base Excess ABG Hemoglobin VBG pH Oxyhemoglobin Sodium Potassium Chloride Carbon Dioxide BUN Creatinine Glucose POC Glucose 285 H 256 H 197 H Lactic Acid Calcium AST ALT Alkaline Phosphatase CK-MB (CK-2) CK-MB (CK-2) Rel Index Total Protein Albumin TSH Urine WBC (Auto) Salicylates 04/03/17 04/04/17 04/04/17 21:11 05:20 13:18 WBC RBC Hgb Hct MCV MCH RDW Plt Count Lymph % (Auto) [place] % (Auto) Eos % (Auto) Seg Neutrophils % Seg Neuts % (Manual) Lymphocytes % (Manual) Seg Neutrophils # Seg Neutrophils # Man Lymphocytes # (Manual) APTT POC ABG pH ABG pH POC ABG pCO2 POC ABG pO2 ABG pO2 ABG HCO3 ABG Base Excess ABG Hemoglobin VBG pH Oxyhemoglobin Sodium Potassium Chloride Carbon Dioxide BUN Creatinine Glucose POC Glucose 166 H 228 H 252 H Lactic Acid Calcium AST ALT Alkaline Phosphatase CK-MB (CK-2) CK-MB (CK-2) Rel Index Total Protein Albumin TSH Urine WBC (Auto) Salicylates 04/04/17 04/05/17 04/05/17 21:51 06:14 09:54 WBC RBC Hgb Hct MCV MCH RDW Plt Count Lymph % (Auto) [place] % (Auto) Eos % (Auto) Seg Neutrophils % Seg Neuts % (Manual) Lymphocytes % (Manual) Seg Neutrophils # Seg Neutrophils # Man Lymphocytes # (Manual) APTT POC ABG pH ABG pH POC ABG pCO2 POC ABG pO2 ABG pO2 ABG HCO3 ABG Base Excess ABG Hemoglobin VBG pH Oxyhemoglobin Sodium Potassium Chloride Carbon Dioxide BUN Creatinine Glucose POC Glucose 252 H 152 H 181 H Lactic Acid Calcium AST ALT Alkaline Phosphatase CK-MB (CK-2) CK-MB (CK-2) Rel Index Total Protein Albumin TSH Urine WBC (Auto) Salicylates 04/05/17 04/05/17 04/05/17 14:49 17:34 21:38 WBC RBC Hgb Hct MCV MCH RDW Plt Count Lymph % (Auto) [place] % (Auto) Eos % (Auto) Seg Neutrophils % Seg Neuts % (Manual) Lymphocytes % (Manual) Seg Neutrophils # Seg Neutrophils # Man Lymphocytes # (Manual) APTT POC ABG pH ABG pH POC ABG pCO2 POC ABG pO2 ABG pO2 ABG HCO3 ABG Base Excess ABG Hemoglobin VBG pH Oxyhemoglobin Sodium Potassium Chloride Carbon Dioxide BUN Creatinine Glucose POC Glucose 219 H 268 H 278 H Lactic Acid Calcium AST ALT Alkaline Phosphatase CK-MB (CK-2) CK-MB (CK-2) Rel Index Total Protein Albumin TSH Urine WBC (Auto) Salicylates 04/06/17 04/06/17 04/07/17 15:04 22:14 05:09 WBC RBC Hgb Hct MCV MCH RDW Plt Count Lymph % (Auto) [place] % (Auto) Eos % (Auto) Seg Neutrophils % Seg Neuts % (Manual) Lymphocytes % (Manual) Seg Neutrophils # Seg Neutrophils # Man Lymphocytes # (Manual) APTT POC ABG pH ABG pH POC ABG pCO2 POC ABG pO2 ABG pO2 ABG HCO3 ABG Base Excess ABG Hemoglobin VBG pH Oxyhemoglobin Sodium Potassium Chloride Carbon Dioxide BUN Creatinine Glucose POC Glucose 285 H 106 H 334 H Lactic Acid Calcium AST ALT Alkaline Phosphatase CK-MB (CK-2) CK-MB (CK-2) Rel Index Total Protein Albumin TSH Urine WBC (Auto) Salicylates 04/07/17 04/07/17 04/08/17 14:45 21:48 05:28 WBC RBC Hgb Hct MCV MCH RDW Plt Count Lymph % (Auto) [place] % (Auto) Eos % (Auto) Seg Neutrophils % Seg Neuts % (Manual) Lymphocytes % (Manual) Seg Neutrophils # Seg Neutrophils # Man Lymphocytes # (Manual) APTT POC ABG pH ABG pH POC ABG pCO2 POC ABG pO2 ABG pO2 ABG HCO3 ABG Base Excess ABG Hemoglobin VBG pH Oxyhemoglobin Sodium Potassium Chloride Carbon Dioxide BUN Creatinine Glucose POC Glucose 173 H 304 H 314 H Lactic Acid Calcium AST ALT Alkaline Phosphatase CK-MB (CK-2) CK-MB (CK-2) Rel Index Total Protein Albumin TSH Urine WBC (Auto) Salicylates 04/08/17 04/08/17 04/08/17 15:57 16:17 22:21 WBC RBC Hgb Hct MCV MCH RDW Plt Count Lymph % (Auto) [place] % (Auto) Eos % (Auto) Seg Neutrophils % Seg Neuts % (Manual) Lymphocytes % (Manual) Seg Neutrophils # Seg Neutrophils # Man Lymphocytes # (Manual) APTT POC ABG pH ABG pH POC ABG pCO2 POC ABG pO2 ABG pO2 ABG HCO3 ABG Base Excess ABG Hemoglobin VBG pH Oxyhemoglobin Sodium Potassium Chloride Carbon Dioxide BUN Creatinine Glucose POC Glucose 356 H 337 H 323 H Lactic Acid Calcium AST ALT Alkaline Phosphatase CK-MB (CK-2) CK-MB (CK-2) Rel Index Total Protein Albumin TSH Urine WBC (Auto) Salicylates 04/09/17 04/09/17 04/09/17 06:19 15:30 21:52 WBC RBC Hgb Hct MCV MCH RDW Plt Count Lymph % (Auto) [place] % (Auto) Eos % (Auto) Seg Neutrophils % Seg Neuts % (Manual) Lymphocytes % (Manual) Seg Neutrophils # Seg Neutrophils # Man Lymphocytes # (Manual) APTT POC ABG pH ABG pH POC ABG pCO2 POC ABG pO2 ABG pO2 ABG HCO3 ABG Base Excess ABG Hemoglobin VBG pH Oxyhemoglobin Sodium Potassium Chloride Carbon Dioxide BUN Creatinine Glucose POC Glucose 340 H 332 H 341 H Lactic Acid Calcium AST ALT Alkaline Phosphatase CK-MB (CK-2) CK-MB (CK-2) Rel Index Total Protein Albumin TSH Urine WBC (Auto) Salicylates 04/10/17 04/10/17 04/10/17 01:53 05:33 17:40 WBC RBC Hgb Hct MCV MCH RDW Plt Count Lymph % (Auto) [place] % (Auto) Eos % (Auto) Seg Neutrophils % Seg Neuts % (Manual) Lymphocytes % (Manual) Seg Neutrophils # Seg Neutrophils # Man Lymphocytes # (Manual) APTT POC ABG pH ABG pH POC ABG pCO2 POC ABG pO2 ABG pO2 ABG HCO3 ABG Base Excess ABG Hemoglobin VBG pH Oxyhemoglobin Sodium Potassium Chloride Carbon Dioxide BUN Creatinine Glucose POC Glucose 261 H 277 H 304 H Lactic Acid Calcium AST ALT Alkaline Phosphatase CK-MB (CK-2) CK-MB (CK-2) Rel Index Total Protein Albumin TSH Urine WBC (Auto) Salicylates 04/10/17 04/11/17 04/11/17 21:29 05:28 14:02 WBC RBC Hgb Hct MCV MCH RDW Plt Count Lymph % (Auto) [place] % (Auto) Eos % (Auto) Seg Neutrophils % Seg Neuts % (Manual) Lymphocytes % (Manual) Seg Neutrophils # Seg Neutrophils # Man Lymphocytes # (Manual) APTT POC ABG pH ABG pH POC ABG pCO2 POC ABG pO2 ABG pO2 ABG HCO3 ABG Base Excess ABG Hemoglobin VBG pH Oxyhemoglobin Sodium Potassium Chloride Carbon Dioxide BUN Creatinine Glucose POC Glucose 361 H 204 H 236 H Lactic Acid Calcium AST ALT Alkaline Phosphatase CK-MB (CK-2) CK-MB (CK-2) Rel Index Total Protein Albumin TSH Urine WBC (Auto) Salicylates 04/11/17 04/12/17 21:43 05:00 WBC RBC Hgb Hct MCV MCH RDW Plt Count Lymph % (Auto) [place] % (Auto) Eos % (Auto) Seg Neutrophils % Seg Neuts % (Manual) Lymphocytes % (Manual) Seg Neutrophils # Seg Neutrophils # Man Lymphocytes # (Manual) APTT POC ABG pH ABG pH POC ABG pCO2 POC ABG pO2 ABG pO2 ABG HCO3 ABG Base Excess ABG Hemoglobin VBG pH Oxyhemoglobin Sodium Potassium Chloride Carbon Dioxide BUN Creatinine Glucose POC Glucose 287 H 294 H Lactic Acid Calcium AST ALT Alkaline Phosphatase CK-MB (CK-2) CK-MB (CK-2) Rel Index Total Protein Albumin TSH Urine WBC (Auto) Salicylates
[2017-04-12] MEDS ORDERED: SODIUM BICARBONATE FEEDTUBE PRN ×2 (14:11→14:20)
[2017-04-12] MEDS ORDERED: SIMPLE SYRUP FEEDTUBE PRN ×2 (14:11)
[2017-04-12] MEDS ORDERED: PANCREAZE DR 10,500 UNIT FEEDTUBE PRN ×2 (14:11→14:17)
[2017-04-13] MEDS: SYNTHROID PO SCH (06:16)
[2017-04-13] MEDS: HumuLIN R SUB-Q SCH ×3 (06:16→23:01)
[2017-04-13] MEDS: PEPCID PO SCH ×2 (09:34→23:00)
[2017-04-13] MEDS: HEPARIN SUB-Q SCH ×2 (09:35→23:00)
[2017-04-14] MEDS: HumuLIN R SUB-Q SCH ×3 (06:20→23:20)
[2017-04-14] MEDS: SYNTHROID PO SCH (06:21)
[2017-04-14] MEDS: PEPCID PO SCH ×2 (12:26→22:44)
[2017-04-14] MEDS: IMODIUM A-D PO PRN ×2 (18:35→23:25)
[2017-04-15] MEDS: SYNTHROID PO SCH (05:11)
[2017-04-15] MEDS: HumuLIN R SUB-Q SCH ×3 (05:12→21:31)
[2017-04-15] MEDS: PEPCID PO SCH ×2 (11:00→21:32)
--- NOTE | 2017-04-15 15:31 | Progress Note ---
Assessment and Plan Assessment and plan: 51 YO Male with CKD, HTN, DM presents to ED after found down and unresponsive by his neighbor, who subsequently called EMS. Upon arrival, patient found unresponsive on the floor with a serum glucose of 21, patient has a known history of alcohol abuse and delirium tremens. The patient was administered D5 approximate 500 mls during transport without change in mental status/level of consciousness. Pt seen and evaluated in ED was was found to be unable to protect his airway. Pt intubated and placed on vent support. Pt found to have evidence of hypothyroidism. He was started on Synthroid. He has since been in the ICU. special services coordinator try to locate family, even spoke to the family who he lives with. They themselves were unaware of any family members. After ethics committee meeting on the patient. The decision was made to make him DO NOT RESUSCITATE and to transfer him to hospice. Given his very poor prognosis and poor likelihood of recovery. It was decided that was not his best interest to get trach and PEG. Therefore he'll be transferred to the hospice intubated. Now Awaiting on court ordered /state guardianship. Hypoglycemic brain injury Persistent vegetative state Metabolic encephalopathy Hypoglycemia/hypothermia, resolved Acute respiratory failure mechanical ventilator greater than 96 hours UTI with klebsiella, treated ( Cx + on 01/28), then with ESBL likely colonization hyponatremia, Hypothyroidism IDDM Hypertension low grade Fever, resolved - Cont supportive care and current medication. Monitor vitals, repeat cx on - no growth - increased dose of long acting insulin to 15 unit - Patient is DNR- needs guardianship from the state to give consent for further management, as has no family to give consent. 04/08/17: per pulmonology, Dr. Broussard: " Imp: 1. Hypoglycemia/hypothermia -> suspect due to too much insulin 2. Hypothyroidism; doubt myxedema coma with normal free T4 3. Acute respiratory failure, hypoxia 4. UTI/SIRS 5. Metabolic encephalopathy Rec: 1. GI/DVT PPx/TFs 2. Reviewed chart; ethics note 01/18/17 recommended AND and "hospice"; trying to get guardianship to sign necessary orders for this (however, I was told they are not willing to sign for withdrawal of ventilator); further care felt to be futile and would only prolong potential suffering without affecting ultimate outcome 3. Comfort care, no escalation of care; would not check any further labs; would not work him up for infections in setting of fever, only treat w/ Tylenol 4. Poor prognosis Unable to locate family." supportative care AND/DNR still in vegatative state, no family present poor prognosis, History Interval history: Patient was seen and examined. Follow-up on current diagnosis. Imaging, nursing note, chart, labs and old chart reviewed. Patient remains intubated Hospitalist Physical - Physical exam Narrative exam: GEN: Severely fail contracted BMI 15.4, comatose HEENT: NCAT, NG tube and ET tube in place CVS/HEART: RRR, NORMAL S1S2, NO JVD, pulses present bilaterally CHEST/LUNGS: Symmetrical chest expansion, good air entry bilaterally GI/Abdomen: soft, ND, good bowel sounds, no guarding or rebound Neuro: comatose, doesn't follow commands Psych: Unresponsive - Constitutional Vitals: Temp Pulse Resp BP Pulse Ox 97.5 F L 80 16 106/70 99 04/15/17 12:00 04/15/17 12:00 04/15/17 12:00 04/15/17 12:00 04/15/17 12:00 General appearance: Present: no acute distress, well-nourished Results - Labs CBC & Chem 7: 03/29/17 04:32 03/29/17 04:32 Labs: Laboratory Last Values WBC 6.3 K/mm3 (4.5-11.0) 03/29/17 04:32 RBC 4.23 M/mm3 (3.65-5.03) 03/29/17 04:32 Hgb 10.6 gm/dl (11.8-15.2) L 03/29/17 04:32 Hct 32.9 % (35.5-45.6) L 03/29/17 04:32 MCV 78 fl (84-94) L 03/29/17 04:32 MCH 25 pg (28-32) L 03/29/17 04:32 MCHC 32 % (32-34) 03/29/17 04:32 RDW 17.6 % (13.2-15.2) H 03/29/17 04:32 Plt Count 355 K/mm3 (140-440) 03/29/17 04:32 Lymph % (Auto) 38.0 % (13.4-35.0) H 03/29/17 04:32 [place] % (Auto) 9.7 % (0.0-7.3) H 03/29/17 04:32 Eos % (Auto) 3.1 % (0.0-4.3) 03/29/17 04:32 Baso % (Auto) 0.7 % (0.0-1.8) 03/29/17 04:32 Lymph # 2.4 K/mm3 (1.2-5.4) 03/29/17 04:32 [place] # 0.6 K/mm3 (0.0-0.8) 03/29/17 04:32 Eos # 0.2 K/mm3 (0.0-0.4) 03/29/17 04:32 Baso # 0.0 K/mm3 (0.0-0.1) 03/29/17 04:32 Add Manual Diff Complete 01/10/17 04:30 Total Counted 100 01/10/17 04:30 Seg Neutrophils % 48.5 % (40.0-70.0) 03/29/17 04:32 Seg Neuts % (Manual) 88.0 % (40.0-70.0) H 01/10/17 04:30 Band Neutrophils % 7.0 % 01/10/17 04:30 Lymphocytes % (Manual) 4.0 % (13.4-35.0) L 01/10/17 04:30 Reactive Lymphs % (Man) 0 % 01/10/17 04:30 Monocytes % (Manual) 1.0 % (0.0-7.3) 01/10/17 04:30 Eosinophils % (Manual) 0 % (0.0-4.3) 01/10/17 04:30 Basophils % (Manual) 0 % (0.0-1.8) 01/10/17 04:30 Metamyelocytes % 0 % 01/10/17 04:30 Myelocytes % 0 % 01/10/17 04:30 Promyelocytes % 0 % 01/10/17 04:30 Blast Cells % 0 % 01/10/17 04:30 Nucleated RBC % Not Reportable 01/10/17 04:30 Seg Neutrophils # 3.0 K/mm3 (1.8-7.7) 03/29/17 04:32 Seg Neutrophils # Man 21.2 K/mm3 (1.8-7.7) H 01/10/17 04:30 Band Neutrophils # 1.7 K/mm3 01/10/17 04:30 Lymphocytes # (Manual) 1.0 K/mm3 (1.2-5.4) L 01/10/17 04:30 Abs React Lymphs (Man) 0.0 K/mm3 01/10/17 04:30 Monocytes # (Manual) 0.2 K/mm3 (0.0-0.8) 01/10/17 04:30 Eosinophils # (Manual) 0.0 K/mm3 (0.0-0.4) 01/10/17 04:30 Basophils # (Manual) 0.0 K/mm3 (0.0-0.1) 01/10/17 04:30 Metamyelocytes # 0.0 K/mm3 01/10/17 04:30 Myelocytes # 0.0 K/mm3 01/10/17 04:30 Promyelocytes # 0.0 K/mm3 01/10/17 04:30 Blast Cells # 0.0 K/mm3 01/10/17 04:30 WBC Morphology Not Reportable 01/10/17 04:30 Hypersegmented Neuts Not Reportable 01/10/17 04:30 Hyposegmented Neuts Not Reportable 01/10/17 04:30 Hypogranular Neuts Not Reportable 01/10/17 04:30 Smudge Cells Not Reportable 01/10/17 04:30 Toxic Granulation Not Reportable 01/10/17 04:30 Toxic Vacuolation Not Reportable 01/10/17 04:30 Dohle Bodies Not Reportable 01/10/17 04:30 [place] Anomaly Not Reportable 01/10/17 04:30 [place] Rods Not Reportable 01/10/17 04:30 Platelet Estimate Consistent w auto 01/10/17 04:30 Clumped Platelets Not Reportable 01/10/17 04:30 Plt Clumps, EDTA Not Reportable 01/10/17 04:30 Large Platelets Not Reportable 01/10/17 04:30 Giant Platelets Not Reportable 01/10/17 04:30 Platelet Satelliting Not Reportable 01/10/17 04:30 Plt Morphology Comment Not Reportable 01/10/17 04:30 RBC Morphology Not Reportable 01/10/17 04:30 Dimorphic RBCs Not Reportable 01/10/17 04:30 Polychromasia Not Reportable 01/10/17 04:30 Hypochromasia 1+ 01/10/17 04:30 Poikilocytosis Not Reportable 01/10/17 04:30 Anisocytosis Not Reportable 01/10/17 04:30 Microcytosis Not Reportable 01/10/17 04:30 Macrocytosis Not Reportable 01/10/17 04:30 Spherocytes Not Reportable 01/10/17 04:30 Pappenheimer Bodies Not Reportable 01/10/17 04:30 Sickle Cells Not Reportable 01/10/17 04:30 Target Cells Not Reportable 01/10/17 04:30 Tear Drop Cells Not Reportable 01/10/17 04:30 Ovalocytes Not Reportable 01/10/17 04:30 Helmet Cells Not Reportable 01/10/17 04:30 [place] Bodies Not Reportable 01/10/17 04:30 [place] Rings Not Reportable 01/10/17 04:30 [place] Cells Not Reportable 01/10/17 04:30 Bite Cells Not Reportable 01/10/17 04:30 Crenated Cell Not Reportable 01/10/17 04:30 Elliptocytes Not Reportable 01/10/17 04:30 Acanthocytes (Spur) Not Reportable 01/10/17 04:30 [place]le[place] Not Reportable 01/10/17 04:30 Hemoglobin C Crystals Not Reportable 01/10/17 04:30 Schistocytes Not Reportable 01/10/17 04:30 Malaria parasites Not Reportable 01/10/17 04:30 [place] Bodies Not Reportable 01/10/17 04:30 Hem Pathologist Commnt No 01/10/17 04:30 PT 14.1 Sec. (12.2-14.9) 01/17/17 04:10 INR 1.04 (0.87-1.13) 01/17/17 04:10 APTT 36.6 Sec. (24.2-36.6) 01/17/17 04:10 POC ABG pH 7.442 (7.35-7.45) 01/31/17 18:55 ABG pH 7.420 pH Units (7.350-7.450) 01/17/17 04:35 POC ABG pCO2 32.8 (35-45) L 01/31/17 18:55 ABG pCO2 34.5 mm Hg 01/17/17 04:35 POC ABG pO2 82 (80-105) 01/31/17 18:55 ABG pO2 160.3 mm Hg (80.0-90.0) H 01/17/17 04:35 POC ABG HCO3 22.4 01/31/17 18:55 ABG HCO3 21.9 mmol/L (20.0-26.0) 01/17/17 04:35 POC ABG Total CO2 23 01/31/17 18:55 POC ABG O2 Sat 97 01/31/17 18:55 ABG O2 Saturation 99.0 % (95.0-99.0) 01/17/17 04:35 ABG O2 Content 11.1 (0.0-44) 01/17/17 04:35 POC ABG Base Excess -2 01/31/17 18:55 ABG Base Excess -2.3 mmol/L (-2.0-3.0) L 01/17/17 04:35 ABG Hemoglobin 7.9 gm/dl (14.0-18.0) L 01/17/17 04:35 ABG Carboxyhemoglobin 1.5 % (0.0-5.0) 01/17/17 04:35 ABG Methemoglobin 0.5 % (0.0-1.5) 01/17/17 04:35 VBG pH 7.284 (7.320-7.420) L 01/09/17 10:16 Oxyhemoglobin 97.1 % (95.0-99.0) 01/17/17 04:35 FiO2 25 % 01/31/17 18:55 Sodium 132 mmol/L (137-145) L 03/29/17 04:32 Potassium 4.5 mmol/L (3.6-5.0) 03/29/17 04:32 Chloride 94.0 mmol/L (98-107) L 03/29/17 04:32 Carbon Dioxide 26 mmol/L (22-30) 03/29/17 04:32 Anion Gap 17 mmol/L 03/29/17 04:32 BUN 28 mg/dL (9-20) H 03/29/17 04:32 Creatinine 0.5 mg/dL (0.8-1.5) L 03/29/17 04:32 Estimated GFR > 60 ml/min 03/29/17 04:32 BUN/Creatinine Ratio 56 % 03/29/17 04:32 Glucose 236 mg/dL (75-100) H 03/29/17 04:32 POC Glucose 93 (70-105) 04/15/17 05:07 Lactic Acid 0.80 mmol/L (0.7-2.0) 01/30/17 11:49 Calcium 9.2 mg/dL (8.4-10.2) 03/29/17 04:32 Phosphorus 3.10 mg/dL (2.5-4.5) 03/29/17 04:32 Magnesium 1.90 mg/dL (1.7-2.3) 03/29/17 04:32 Total Bilirubin 0.30 mg/dL (0.1-1.2) 03/29/17 04:32 AST 40 units/L (5-40) 03/29/17 04:32 ALT 71 units/L (7-56) H 03/29/17 04:32 Alkaline Phosphatase 391 units/L (35-129) H 03/29/17 04:32 Ammonia 35.0 umol/L (25-60) 01/09/17 10:16 Total Creatine Kinase 135 units/L (55-170) 01/09/17 10:16 CK-MB (CK-2) 7.1 ng/mL (0.0-4.0) H 01/09/17 10:16 CK-MB (CK-2) Rel Index 5.2 (0-4) H 01/09/17 10:16 Troponin T < 0.010 ng/mL (0.00-0.029) 01/09/17 10:16 NT-Pro-B Natriuret Pep 602.9 pg/mL (0-900) 01/09/17 10:16 Total Protein 8.3 g/dL (6.3-8.2) H 03/29/17 04:32 Albumin 2.9 g/dL (3.9-5) L 03/29/17 04:32 Albumin/Globulin Ratio 0.5 % 03/29/17 04:32 TSH 52.800 mlU/mL (0.270-4.200) H 01/09/17 10:16 Free T4 0.78 ng/dL (0.76-1.46) 01/09/17 10:16 Total Cortisol 54.8 mcg/dL () 01/09/17 16:19 Urine Color Yellow (Yellow) 01/28/17 17:52 Urine Turbidity Clear (Clear) 01/28/17 17:52 Urine pH 6.0 (5.0-7.0) 01/28/17 17:52 Ur Specific [place] 1.016 (1.003-1.030) 01/28/17 17:52 Urine Protein 100 mg/dl mg/dL (Negative) 01/28/17 17:52 Urine Glucose (UA) >=500 mg/dL (Negative) 01/28/17 17:52 Urine Ketones Neg mg/dL (Negative) 01/28/17 17:52 Urine Blood Sm (Negative) 01/28/17 17:52 Urine Nitrite Neg (Negative) 01/28/17 17:52 Urine Bilirubin Neg (Negative) 01/28/17 17:52 Urine Urobilinogen < 2.0 mg/dL (<2.0) 01/28/17 17:52 Ur Leukocyte Esterase Lg (Negative) 01/28/17 17:52 Urine WBC (Auto) > 182.0 /HPF (0.0-6.0) H 01/28/17 17:52 Urine RBC (Auto) 113.0 /HPF (0.0-6.0) 01/28/17 17:52 Urine Bacteria (Auto) 2+ /HPF (Negative) 01/28/17 17:52 Urine WBC Clumps 3+ /HPF 01/28/17 17:52 Urine Mucus Few /HPF 01/14/17 14:07 Urine Yeast ([place]) 3+ /HPF 01/14/17 14:07 Salicylates < 0.3 mg/dL (2.8-20.0) L 01/09/17 10:16 Urine Opiates Screen Presumptive negative 01/09/17 10:23 Urine Methadone Screen Presumptive negative 01/09/17 10:23 Acetaminophen < 15.0 ug/mL (10.0-30.0) 01/09/17 10:16 Ur Barbiturates Screen Presumptive negative 01/09/17 10:23 Ur Phencyclidine Scrn Presumptive negative 01/09/17 10:23 Ur Amphetamines Screen Presumptive negative 01/09/17 10:23 U Benzodiazepines Scrn Presumptive negative 01/09/17 10:23 Urine Cocaine Screen Presumptive negative 01/09/17 10:23 U Marijuana (THC) Screen Presumptive negative 01/09/17 10:23 Drugs of Abuse Note Disclamer 01/09/17 10:23 Plasma/Serum Alcohol < 0.01 gm% (0-0.07) 01/09/17 10:16
[2017-04-16] MEDS: SYNTHROID PO SCH ×2 (04:40→05:38)
[2017-04-16] MEDS: HumuLIN R SUB-Q SCH ×3 (05:37→21:33)
[2017-04-16] MEDS: PEPCID PO SCH ×2 (10:10→21:33)
[2017-04-17] MEDS: SYNTHROID PO SCH (08:12)
[2017-04-17] MEDS: HumuLIN R SUB-Q SCH ×3 (08:12→23:35)
--- NOTE | 2017-04-17 12:18 | Progress Note ---
Assessment and Plan 51 y/o male found down, concern for sepsis and now encephalopathic requiring mechanical ventilation. No new recommendations for today. Please see below. 1. continue supportive care 2. 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 I am aware that he is an AND but trach will not fix this problem and is not in my professional opinion the right thing to do for this patient. Most likely he will never be weaned from the vent and will remain in a persistent vegatative state. 3. Overall prognosis continues to be poor. 4. Will not check labs 5. Vitals should be qshift 6. This patient's possibility of awakening from this persistent vegatative is unlikely. The current status is that there has been paper work filed to obtain guardianship so that end of life decisions can be made. Supportive care is reasonable but checking daily labs and doing other invasive things to this patient I do not feel is morally and ethically appropriate. 7. Currently patient does not have IV access and is not requiring any medical therapy. Will not place another one at this time. 8. Imodium for diarrhea Subjective Date of service: 04/17/17 Principal diagnosis: Acute respiratory failure,encephalopathy Interval history: No acute events. Clinical status is unchanged. Still no family located. Objective Vital Signs - 12hr 04/17/17 04/17/17 04/17/17 01:00 03:34 05:15 Temperature 102.7 F H Pulse Rate 95 H 101 H Blood Pressure 98/68 O2 Sat by Pulse 95 99 Oximetry 04/17/17 04/17/17 04/17/17 08:00 08:21 12:02 Temperature 98.5 F Pulse Rate 82 96 H Blood Pressure 96/62 102/70 O2 Sat by Pulse 98 98 Oximetry Constitutional: no acute distress, comatose Eyes: non-icteric ENT: oropharynx moist, other (ETT in position) Neck: supple, no JVD Effort: normal Ascultation: Bilateral: clear, diminished breath sounds Cardiovascular: regular rate and rhythm (no mrg) Gastrointestinal: normoactive bowel sounds, soft, non-tender, non-distended Integumentary: normal Extremities: no cyanosis, no edema, pink and warm Neurologic: pupils equal and round, other (minimal responsive,no posturing, ) Psychiatric: other (unable to obtain) CBC and BMP: 03/29/17 04:32 03/29/17 04:32 ABG, PT/INR, D-dimer: ABG POC ABG pH 7.442 (7.35-7.45) 01/31/17 18:55 ABG pH 7.420 pH Units (7.350-7.450) 01/17/17 04:35 POC ABG pCO2 32.8 (35-45) L 01/31/17 18:55 ABG pCO2 34.5 mm Hg 01/17/17 04:35 POC ABG pO2 82 (80-105) 01/31/17 18:55 ABG pO2 160.3 mm Hg (80.0-90.0) H 01/17/17 04:35 POC ABG HCO3 22.4 01/31/17 18:55 POC ABG Total CO2 23 01/31/17 18:55 POC ABG O2 Sat 97 01/31/17 18:55 ABG O2 Saturation 99.0 % (95.0-99.0) 01/17/17 04:35 PT/INR, D-dimer PT 14.1 Sec. (12.2-14.9) 01/17/17 04:10 INR 1.04 (0.87-1.13) 01/17/17 04:10 Abnormal lab findings: Abnormal Labs 01/09/17 01/09/17 01/09/17 10:16 10:16 10:16 WBC RBC Hgb 9.7 L Hct 28.4 L MCV 76 L MCH 26 L RDW 17.2 H Plt Count 448 H Lymph % (Auto) [place] % (Auto) Eos % (Auto) Seg Neutrophils % 79.5 H Seg Neuts % (Manual) Lymphocytes % (Manual) Seg Neutrophils # Seg Neutrophils # Man Lymphocytes # (Manual) APTT 39.6 H POC ABG pH ABG pH POC ABG pCO2 POC ABG pO2 ABG pO2 ABG HCO3 ABG Base Excess ABG Hemoglobin VBG pH Oxyhemoglobin Sodium 132 L Potassium Chloride 96.7 L Carbon Dioxide 21 L BUN 34 H Creatinine Glucose POC Glucose Lactic Acid Calcium 8.3 L AST ALT Alkaline Phosphatase 151 H CK-MB (CK-2) 7.1 H CK-MB (CK-2) Rel Index 5.2 H Total Protein Albumin 3.3 L TSH Urine WBC (Auto) Salicylates 01/09/17 01/09/17 01/09/17 10:16 10:16 10:16 WBC RBC Hgb Hct MCV MCH RDW Plt Count Lymph % (Auto) [place] % (Auto) Eos % (Auto) Seg Neutrophils % Seg Neuts % (Manual) Lymphocytes % (Manual) Seg Neutrophils # Seg Neutrophils # Man Lymphocytes # (Manual) APTT POC ABG pH ABG pH POC ABG pCO2 POC ABG pO2 ABG pO2 ABG HCO3 ABG Base Excess ABG Hemoglobin VBG pH 7.284 L Oxyhemoglobin Sodium Potassium Chloride Carbon Dioxide BUN Creatinine Glucose POC Glucose Lactic Acid Calcium AST ALT Alkaline Phosphatase CK-MB (CK-2) CK-MB (CK-2) Rel Index Total Protein Albumin TSH 52.800 H Urine WBC (Auto) Salicylates < 0.3 L 01/09/17 01/09/17 01/09/17 10:23 11:14 12:49 WBC RBC Hgb Hct MCV MCH RDW Plt Count Lymph % (Auto) [place] % (Auto) Eos % (Auto) Seg Neutrophils % Seg Neuts % (Manual) Lymphocytes % (Manual) Seg Neutrophils # Seg Neutrophils # Man Lymphocytes # (Manual) APTT POC ABG pH ABG pH POC ABG pCO2 POC ABG pO2 643 H ABG pO2 ABG HCO3 ABG Base Excess ABG Hemoglobin VBG pH Oxyhemoglobin Sodium Potassium Chloride Carbon Dioxide BUN Creatinine Glucose POC Glucose < 40 L Lactic Acid Calcium AST ALT Alkaline Phosphatase CK-MB (CK-2) CK-MB (CK-2) Rel Index Total Protein Albumin TSH Urine WBC (Auto) 61.0 H Salicylates 01/09/17 01/09/17 01/09/17 13:13 14:21 15:09 WBC RBC Hgb Hct MCV MCH RDW Plt Count Lymph % (Auto) [place] % (Auto) Eos % (Auto) Seg Neutrophils % Seg Neuts % (Manual) Lymphocytes % (Manual) Seg Neutrophils # Seg Neutrophils # Man Lymphocytes # (Manual) APTT POC ABG pH ABG pH POC ABG pCO2 POC ABG pO2 ABG pO2 ABG HCO3 ABG Base Excess ABG Hemoglobin VBG pH Oxyhemoglobin Sodium Potassium Chloride Carbon Dioxide BUN Creatinine Glucose POC Glucose 128 H 65 L 120 H Lactic Acid Calcium AST ALT Alkaline Phosphatase CK-MB (CK-2) CK-MB (CK-2) Rel Index Total Protein Albumin TSH Urine WBC (Auto) Salicylates 01/09/17 01/09/17 01/10/17 16:28 17:14 04:30 WBC 24.1 H RBC 3.38 L Hgb 8.5 L Hct 26.0 L MCV 77 L MCH 25 L RDW 17.9 H Plt Count 474 H Lymph % (Auto) [place] % (Auto) Eos % (Auto) Seg Neutrophils % Seg Neuts % (Manual) 88.0 H Lymphocytes % (Manual) 4.0 L Seg Neutrophils # Seg Neutrophils # Man 21.2 H Lymphocytes # (Manual) 1.0 L APTT POC ABG pH ABG pH POC ABG pCO2 POC ABG pO2 ABG pO2 ABG HCO3 ABG Base Excess ABG Hemoglobin VBG pH Oxyhemoglobin Sodium Potassium Chloride Carbon Dioxide BUN Creatinine Glucose POC Glucose 44 L 112 H Lactic Acid Calcium AST ALT Alkaline Phosphatase CK-MB (CK-2) CK-MB (CK-2) Rel Index Total Protein Albumin TSH Urine WBC (Auto) Salicylates 01/10/17 01/10/17 01/10/17 04:30 05:41 05:45 WBC RBC Hgb Hct MCV MCH RDW Plt Count Lymph % (Auto) [place] % (Auto) Eos % (Auto) Seg Neutrophils % Seg Neuts % (Manual) Lymphocytes % (Manual) Seg Neutrophils # Seg Neutrophils # Man Lymphocytes # (Manual) APTT POC ABG pH ABG pH POC ABG pCO2 26.6 L POC ABG pO2 207 H ABG pO2 ABG HCO3 ABG Base Excess ABG Hemoglobin VBG pH Oxyhemoglobin Sodium Potassium Chloride Carbon Dioxide 17 L BUN 27 H Creatinine Glucose POC Glucose 68 L Lactic Acid Calcium 7.5 L AST ALT Alkaline Phosphatase CK-MB (CK-2) CK-MB (CK-2) Rel Index Total Protein Albumin TSH Urine WBC (Auto) Salicylates 01/10/17 01/10/17 01/10/17 07:47 10:50 13:41 WBC RBC Hgb Hct MCV MCH RDW Plt Count Lymph % (Auto) [place] % (Auto) Eos % (Auto) Seg Neutrophils % Seg Neuts % (Manual) Lymphocytes % (Manual) Seg Neutrophils # Seg Neutrophils # Man Lymphocytes # (Manual) APTT POC ABG pH ABG pH POC ABG pCO2 POC ABG pO2 ABG pO2 ABG HCO3 ABG Base Excess ABG Hemoglobin VBG pH Oxyhemoglobin Sodium Potassium Chloride Carbon Dioxide BUN Creatinine Glucose POC Glucose 148 H 165 H 114 H Lactic Acid Calcium AST ALT Alkaline Phosphatase CK-MB (CK-2) CK-MB (CK-2) Rel Index Total Protein Albumin TSH Urine WBC (Auto) Salicylates 01/10/17 01/10/17 01/10/17 20:20 21:39 23:24 WBC RBC Hgb Hct MCV MCH RDW Plt Count Lymph % (Auto) [place] % (Auto) Eos % (Auto) Seg Neutrophils % Seg Neuts % (Manual) Lymphocytes % (Manual) Seg Neutrophils # Seg Neutrophils # Man Lymphocytes # (Manual) APTT POC ABG pH ABG pH POC ABG pCO2 POC ABG pO2 ABG pO2 ABG HCO3 ABG Base Excess ABG Hemoglobin VBG pH Oxyhemoglobin Sodium Potassium Chloride Carbon Dioxide BUN Creatinine Glucose POC Glucose 150 H 175 H 155 H Lactic Acid Calcium AST ALT Alkaline Phosphatase CK-MB (CK-2) CK-MB (CK-2) Rel Index Total Protein Albumin TSH Urine WBC (Auto) Salicylates 01/11/17 01/11/17 01/11/17 00:19 04:06 05:20 WBC 15.2 H RBC 3.40 L Hgb 8.9 L Hct 26.3 L MCV 78 L MCH 26 L RDW 18.6 H Plt Count 462 H Lymph % (Auto) 13.2 L [place] % (Auto) Eos % (Auto) Seg Neutrophils % 80.8 H Seg Neuts % (Manual) Lymphocytes % (Manual) Seg Neutrophils # 12.3 H Seg Neutrophils # Man Lymphocytes # (Manual) APTT POC ABG pH 7.463 H ABG pH POC ABG pCO2 26.2 L POC ABG pO2 185 H ABG pO2 ABG HCO3 ABG Base Excess ABG Hemoglobin VBG pH Oxyhemoglobin Sodium Potassium Chloride Carbon Dioxide BUN Creatinine Glucose POC Glucose 163 H Lactic Acid Calcium AST ALT Alkaline Phosphatase CK-MB (CK-2) CK-MB (CK-2) Rel Index Total Protein Albumin TSH Urine WBC (Auto) Salicylates 01/11/17 01/11/17 01/11/17 05:20 06:21 07:57 WBC RBC Hgb Hct MCV MCH RDW Plt Count Lymph % (Auto) [place] % (Auto) Eos % (Auto) Seg Neutrophils % Seg Neuts % (Manual) Lymphocytes % (Manual) Seg Neutrophils # Seg Neutrophils # Man Lymphocytes # (Manual) APTT POC ABG pH ABG pH POC ABG pCO2 POC ABG pO2 ABG pO2 ABG HCO3 ABG Base Excess ABG Hemoglobin VBG pH Oxyhemoglobin Sodium Potassium 3.4 L Chloride 111.5 H Carbon Dioxide 17 L BUN Creatinine Glucose 147 H POC Glucose 139 H 188 H Lactic Acid Calcium 8.0 L AST ALT Alkaline Phosphatase CK-MB (CK-2) CK-MB (CK-2) Rel Index Total Protein Albumin TSH Urine WBC (Auto) Salicylates 01/11/17 01/11/17 01/11/17 11:46 16:50 23:15 WBC RBC Hgb Hct MCV MCH RDW Plt Count Lymph % (Auto) [place] % (Auto) Eos % (Auto) Seg Neutrophils % Seg Neuts % (Manual) Lymphocytes % (Manual) Seg Neutrophils # Seg Neutrophils # Man Lymphocytes # (Manual) APTT POC ABG pH ABG pH POC ABG pCO2 POC ABG pO2 ABG pO2 ABG HCO3 ABG Base Excess ABG Hemoglobin VBG pH Oxyhemoglobin Sodium Potassium Chloride Carbon Dioxide BUN Creatinine Glucose POC Glucose 199 H 235 H 155 H Lactic Acid Calcium AST ALT Alkaline Phosphatase CK-MB (CK-2) CK-MB (CK-2) Rel Index Total Protein Albumin TSH Urine WBC (Auto) Salicylates 01/12/17 01/12/17 01/12/17 05:02 06:56 14:50 WBC RBC Hgb Hct MCV MCH RDW Plt Count Lymph % (Auto) [place] % (Auto) Eos % (Auto) Seg Neutrophils % Seg Neuts % (Manual) Lymphocytes % (Manual) Seg Neutrophils # Seg Neutrophils # Man Lymphocytes # (Manual) APTT POC ABG pH ABG pH POC ABG pCO2 28.0 L POC ABG pO2 178 H ABG pO2 ABG HCO3 ABG Base Excess ABG Hemoglobin VBG pH Oxyhemoglobin Sodium Potassium Chloride Carbon Dioxide BUN Creatinine Glucose POC Glucose 119 H 164 H Lactic Acid Calcium AST ALT Alkaline Phosphatase CK-MB (CK-2) CK-MB (CK-2) Rel Index Total Protein Albumin TSH Urine WBC (Auto) Salicylates 01/13/17 01/13/17 01/13/17 03:37 03:37 04:26 WBC RBC 3.61 L Hgb 9.3 L Hct 28.0 L MCV 78 L MCH 26 L RDW 18.2 H Plt Count Lymph % (Auto) [place] % (Auto) Eos % (Auto) Seg Neutrophils % Seg Neuts % (Manual) Lymphocytes % (Manual) Seg Neutrophils # Seg Neutrophils # Man Lymphocytes # (Manual) APTT POC ABG pH 7.485 H ABG pH POC ABG pCO2 25.4 L POC ABG pO2 73 L ABG pO2 ABG HCO3 ABG Base Excess ABG Hemoglobin VBG pH Oxyhemoglobin Sodium Potassium Chloride 112.4 H Carbon Dioxide 19 L BUN Creatinine Glucose 118 H POC Glucose Lactic Acid Calcium 8.0 L AST ALT Alkaline Phosphatase CK-MB (CK-2) CK-MB (CK-2) Rel Index Total Protein Albumin TSH Urine WBC (Auto) Salicylates 01/13/17 01/13/17 01/13/17 06:15 11:50 17:31 WBC RBC Hgb Hct MCV MCH RDW Plt Count Lymph % (Auto) [place] % (Auto) Eos % (Auto) Seg Neutrophils % Seg Neuts % (Manual) Lymphocytes % (Manual) Seg Neutrophils # Seg Neutrophils # Man Lymphocytes # (Manual) APTT POC ABG pH ABG pH POC ABG pCO2 POC ABG pO2 ABG pO2 ABG HCO3 ABG Base Excess ABG Hemoglobin VBG pH Oxyhemoglobin Sodium Potassium Chloride Carbon Dioxide BUN Creatinine Glucose POC Glucose 116 H 171 H 203 H Lactic Acid Calcium AST ALT Alkaline Phosphatase CK-MB (CK-2) CK-MB (CK-2) Rel Index Total Protein Albumin TSH Urine WBC (Auto) Salicylates 01/14/17 01/14/17 01/14/17 00:02 04:50 04:50 WBC RBC 3.32 L Hgb 8.5 L Hct 26.1 L MCV 79 L MCH 26 L RDW 18.2 H Plt Count Lymph % (Auto) [place] % (Auto) 9.0 H Eos % (Auto) Seg Neutrophils % Seg Neuts % (Manual) Lymphocytes % (Manual) Seg Neutrophils # Seg Neutrophils # Man Lymphocytes # (Manual) APTT POC ABG pH ABG pH POC ABG pCO2 POC ABG pO2 ABG pO2 ABG HCO3 ABG Base Excess ABG Hemoglobin VBG pH Oxyhemoglobin Sodium Potassium Chloride 112.5 H Carbon Dioxide BUN Creatinine Glucose 149 H POC Glucose 157 H Lactic Acid Calcium 8.1 L AST ALT Alkaline Phosphatase CK-MB (CK-2) CK-MB (CK-2) Rel Index Total Protein Albumin TSH Urine WBC (Auto) Salicylates 01/14/17 01/14/17 01/14/17 05:10 11:27 14:07 WBC RBC Hgb Hct MCV MCH RDW Plt Count Lymph % (Auto) [place] % (Auto) Eos % (Auto) Seg Neutrophils % Seg Neuts % (Manual) Lymphocytes % (Manual) Seg Neutrophils # Seg Neutrophils # Man Lymphocytes # (Manual) APTT POC ABG pH ABG pH POC ABG pCO2 POC ABG pO2 ABG pO2 ABG HCO3 ABG Base Excess ABG Hemoglobin VBG pH Oxyhemoglobin Sodium Potassium Chloride Carbon Dioxide BUN Creatinine Glucose POC Glucose 176 H 147 H Lactic Acid Calcium AST ALT Alkaline Phosphatase CK-MB (CK-2) CK-MB (CK-2) Rel Index Total Protein Albumin TSH Urine WBC (Auto) 53.0 H Salicylates 01/14/17 01/15/17 01/15/17 16:52 00:04 05:26 WBC RBC Hgb Hct MCV MCH RDW Plt Count Lymph % (Auto) [place] % (Auto) Eos % (Auto) Seg Neutrophils % Seg Neuts % (Manual) Lymphocytes % (Manual) Seg Neutrophils # Seg Neutrophils # Man Lymphocytes # (Manual) APTT POC ABG pH ABG pH POC ABG pCO2 POC ABG pO2 ABG pO2 ABG HCO3 ABG Base Excess ABG Hemoglobin VBG pH Oxyhemoglobin Sodium Potassium Chloride Carbon Dioxide BUN Creatinine Glucose POC Glucose 131 H 193 H 215 H Lactic Acid Calcium AST ALT Alkaline Phosphatase CK-MB (CK-2) CK-MB (CK-2) Rel Index Total Protein Albumin TSH Urine WBC (Auto) Salicylates 01/15/17 01/15/17 01/15/17 11:49 17:47 21:33 WBC RBC Hgb Hct MCV MCH RDW Plt Count Lymph % (Auto) [place] % (Auto) Eos % (Auto) Seg Neutrophils % Seg Neuts % (Manual) Lymphocytes % (Manual) Seg Neutrophils # Seg Neutrophils # Man Lymphocytes # (Manual) APTT POC ABG pH ABG pH POC ABG pCO2 POC ABG pO2 ABG pO2 ABG HCO3 ABG Base Excess ABG Hemoglobin VBG pH Oxyhemoglobin Sodium Potassium Chloride Carbon Dioxide BUN Creatinine Glucose POC Glucose 121 H 211 H 275 H Lactic Acid Calcium AST ALT Alkaline Phosphatase CK-MB (CK-2) CK-MB (CK-2) Rel Index Total Protein Albumin TSH Urine WBC (Auto) Salicylates 01/16/17 01/16/17 01/16/17 04:30 05:28 13:45 WBC RBC Hgb Hct MCV MCH RDW Plt Count Lymph % (Auto) [place] % (Auto) Eos % (Auto) Seg Neutrophils % Seg Neuts % (Manual) Lymphocytes % (Manual) Seg Neutrophils # Seg Neutrophils # Man Lymphocytes # (Manual) APTT POC ABG pH ABG pH 7.457 H POC ABG pCO2 POC ABG pO2 ABG pO2 55.1 L ABG HCO3 19.4 L ABG Base Excess -4.0 L ABG Hemoglobin 6.8 L VBG pH Oxyhemoglobin 94.9 L Sodium Potassium Chloride Carbon Dioxide BUN Creatinine Glucose POC Glucose 271 H 236 H Lactic Acid Calcium AST ALT Alkaline Phosphatase CK-MB (CK-2) CK-MB (CK-2) Rel Index Total Protein Albumin TSH Urine WBC (Auto) Salicylates 01/16/17 01/17/17 01/17/17 21:39 04:10 04:10 WBC 4.4 L RBC 2.98 L Hgb 7.7 L Hct 23.3 L MCV 78 L MCH 26 L RDW 18.1 H Plt Count Lymph % (Auto) [place] % (Auto) Eos % (Auto) Seg Neutrophils % Seg Neuts % (Manual) Lymphocytes % (Manual) Seg Neutrophils # Seg Neutrophils # Man Lymphocytes # (Manual) APTT POC ABG pH ABG pH POC ABG pCO2 POC ABG pO2 ABG pO2 ABG HCO3 ABG Base Excess ABG Hemoglobin VBG pH Oxyhemoglobin Sodium Potassium 3.3 L Chloride 108.7 H Carbon Dioxide 20 L BUN 8 L Creatinine Glucose 202 H POC Glucose 258 H Lactic Acid Calcium 7.6 L AST ALT Alkaline Phosphatase CK-MB (CK-2) CK-MB (CK-2) Rel Index Total Protein Albumin TSH Urine WBC (Auto) Salicylates 01/17/17 01/17/17 01/17/17 04:35 12:23 16:01 WBC RBC Hgb Hct MCV MCH RDW Plt Count Lymph % (Auto) [place] % (Auto) Eos % (Auto) Seg Neutrophils % Seg Neuts % (Manual) Lymphocytes % (Manual) Seg Neutrophils # Seg Neutrophils # Man Lymphocytes # (Manual) APTT POC ABG pH ABG pH POC ABG pCO2 POC ABG pO2 ABG pO2 160.3 H ABG HCO3 ABG Base Excess -2.3 L ABG Hemoglobin 7.9 L VBG pH Oxyhemoglobin Sodium Potassium Chloride Carbon Dioxide BUN Creatinine Glucose POC Glucose 321 H 239 H Lactic Acid Calcium AST ALT Alkaline Phosphatase CK-MB (CK-2) CK-MB (CK-2) Rel Index Total Protein Albumin TSH Urine WBC (Auto) Salicylates 01/18/17 01/18/17 01/18/17 05:07 12:09 17:54 WBC RBC Hgb Hct MCV MCH RDW Plt Count Lymph % (Auto) [place] % (Auto) Eos % (Auto) Seg Neutrophils % Seg Neuts % (Manual) Lymphocytes % (Manual) Seg Neutrophils # Seg Neutrophils # Man Lymphocytes # (Manual) APTT POC ABG pH ABG pH POC ABG pCO2 POC ABG pO2 ABG pO2 ABG HCO3 ABG Base Excess ABG Hemoglobin VBG pH Oxyhemoglobin Sodium Potassium Chloride Carbon Dioxide BUN Creatinine Glucose POC Glucose 155 H 203 H 132 H Lactic Acid Calcium AST ALT Alkaline Phosphatase CK-MB (CK-2) CK-MB (CK-2) Rel Index Total Protein Albumin TSH Urine WBC (Auto) Salicylates 01/18/17 01/19/17 01/19/17 23:43 04:28 12:11 WBC RBC Hgb Hct MCV MCH RDW Plt Count Lymph % (Auto) [place] % (Auto) Eos % (Auto) Seg Neutrophils % Seg Neuts % (Manual) Lymphocytes % (Manual) Seg Neutrophils # Seg Neutrophils # Man Lymphocytes # (Manual) APTT POC ABG pH ABG pH POC ABG pCO2 POC ABG pO2 ABG pO2 ABG HCO3 ABG Base Excess ABG Hemoglobin VBG pH Oxyhemoglobin Sodium Potassium Chloride Carbon Dioxide BUN Creatinine Glucose POC Glucose 125 H 182 H 153 H Lactic Acid Calcium AST ALT Alkaline Phosphatase CK-MB (CK-2) CK-MB (CK-2) Rel Index Total Protein Albumin TSH Urine WBC (Auto) Salicylates 01/19/17 01/20/17 01/20/17 17:23 00:12 05:44 WBC RBC Hgb Hct MCV MCH RDW Plt Count Lymph % (Auto) [place] % (Auto) Eos % (Auto) Seg Neutrophils % Seg Neuts % (Manual) Lymphocytes % (Manual) Seg Neutrophils # Seg Neutrophils # Man Lymphocytes # (Manual) APTT POC ABG pH ABG pH POC ABG pCO2 POC ABG pO2 ABG pO2 ABG HCO3 ABG Base Excess ABG Hemoglobin VBG pH Oxyhemoglobin Sodium Potassium Chloride Carbon Dioxide BUN Creatinine Glucose POC Glucose 66 L 139 H 176 H Lactic Acid Calcium AST ALT Alkaline Phosphatase CK-MB (CK-2) CK-MB (CK-2) Rel Index Total Protein Albumin TSH Urine WBC (Auto) Salicylates 01/20/17 01/20/17 01/20/17 11:48 17:42 23:43 WBC RBC Hgb Hct MCV MCH RDW Plt Count Lymph % (Auto) [place] % (Auto) Eos % (Auto) Seg Neutrophils % Seg Neuts % (Manual) Lymphocytes % (Manual) Seg Neutrophils # Seg Neutrophils # Man Lymphocytes # (Manual) APTT POC ABG pH ABG pH POC ABG pCO2 POC ABG pO2 ABG pO2 ABG HCO3 ABG Base Excess ABG Hemoglobin VBG pH Oxyhemoglobin Sodium Potassium Chloride Carbon Dioxide BUN Creatinine Glucose POC Glucose 218 H 132 H 178 H Lactic Acid Calcium AST ALT Alkaline Phosphatase CK-MB (CK-2) CK-MB (CK-2) Rel Index Total Protein Albumin TSH Urine WBC (Auto) Salicylates 01/21/17 01/21/17 01/21/17 05:34 11:17 23:37 WBC RBC Hgb Hct MCV MCH RDW Plt Count Lymph % (Auto) [place] % (Auto) Eos % (Auto) Seg Neutrophils % Seg Neuts % (Manual) Lymphocytes % (Manual) Seg Neutrophils # Seg Neutrophils # Man Lymphocytes # (Manual) APTT POC ABG pH ABG pH POC ABG pCO2 POC ABG pO2 ABG pO2 ABG HCO3 ABG Base Excess ABG Hemoglobin VBG pH Oxyhemoglobin Sodium Potassium Chloride Carbon Dioxide BUN Creatinine Glucose POC Glucose 106 H 213 H 140 H Lactic Acid Calcium AST ALT Alkaline Phosphatase CK-MB (CK-2) CK-MB (CK-2) Rel Index Total Protein Albumin TSH Urine WBC (Auto) Salicylates 01/22/17 01/22/17 01/22/17 04:00 04:00 04:58 WBC RBC 3.26 L Hgb 8.3 L Hct 25.5 L MCV 78 L MCH 25 L RDW 17.9 H Plt Count Lymph % (Auto) [place] % (Auto) 7.9 H Eos % (Auto) 6.2 H Seg Neutrophils % Seg Neuts % (Manual) Lymphocytes % (Manual) Seg Neutrophils # Seg Neutrophils # Man Lymphocytes # (Manual) APTT POC ABG pH ABG pH POC ABG pCO2 POC ABG pO2 ABG pO2 ABG HCO3 ABG Base Excess ABG Hemoglobin VBG pH Oxyhemoglobin Sodium Potassium Chloride 95.5 L Carbon Dioxide 31 H D BUN Creatinine Glucose 134 H POC Glucose 146 H Lactic Acid Calcium AST 44 H ALT Alkaline Phosphatase 379 H CK-MB (CK-2) CK-MB (CK-2) Rel Index Total Protein Albumin 2.7 L TSH Urine WBC (Auto) Salicylates 01/22/17 01/22/17 01/22/17 12:12 18:12 23:39 WBC RBC Hgb Hct MCV MCH RDW Plt Count Lymph % (Auto) [place] % (Auto) Eos % (Auto) Seg Neutrophils % Seg Neuts % (Manual) Lymphocytes % (Manual) Seg Neutrophils # Seg Neutrophils # Man Lymphocytes # (Manual) APTT POC ABG pH ABG pH POC ABG pCO2 POC ABG pO2 ABG pO2 ABG HCO3 ABG Base Excess ABG Hemoglobin VBG pH Oxyhemoglobin Sodium Potassium Chloride Carbon Dioxide BUN Creatinine Glucose POC Glucose 255 H 182 H 134 H Lactic Acid Calcium AST ALT Alkaline Phosphatase CK-MB (CK-2) CK-MB (CK-2) Rel Index Total Protein Albumin TSH Urine WBC (Auto) Salicylates 01/23/17 01/23/17 01/23/17 04:43 12:12 17:36 WBC RBC Hgb Hct MCV MCH RDW Plt Count Lymph % (Auto) [place] % (Auto) Eos % (Auto) Seg Neutrophils % Seg Neuts % (Manual) Lymphocytes % (Manual) Seg Neutrophils # Seg Neutrophils # Man Lymphocytes # (Manual) APTT POC ABG pH ABG pH POC ABG pCO2 POC ABG pO2 ABG pO2 ABG HCO3 ABG Base Excess ABG Hemoglobin VBG pH Oxyhemoglobin Sodium Potassium Chloride Carbon Dioxide BUN Creatinine Glucose POC Glucose 218 H 128 H 156 H Lactic Acid Calcium AST ALT Alkaline Phosphatase CK-MB (CK-2) CK-MB (CK-2) Rel Index Total Protein Albumin TSH Urine WBC (Auto) Salicylates 01/24/17 01/24/17 01/24/17 00:08 05:16 11:40 WBC RBC Hgb Hct MCV MCH RDW Plt Count Lymph % (Auto) [place] % (Auto) Eos % (Auto) Seg Neutrophils % Seg Neuts % (Manual) Lymphocytes % (Manual) Seg Neutrophils # Seg Neutrophils # Man Lymphocytes # (Manual) APTT POC ABG pH ABG pH POC ABG pCO2 POC ABG pO2 ABG pO2 ABG HCO3 ABG Base Excess ABG Hemoglobin VBG pH Oxyhemoglobin Sodium Potassium Chloride Carbon Dioxide BUN Creatinine Glucose POC Glucose 129 H 169 H 187 H Lactic Acid Calcium AST ALT Alkaline Phosphatase CK-MB (CK-2) CK-MB (CK-2) Rel Index Total Protein Albumin TSH Urine WBC (Auto) Salicylates 01/24/17 01/24/17 01/25/17 17:43 23:23 04:56 WBC RBC Hgb Hct MCV MCH RDW Plt Count Lymph % (Auto) [place] % (Auto) Eos % (Auto) Seg Neutrophils % Seg Neuts % (Manual) Lymphocytes % (Manual) Seg Neutrophils # Seg Neutrophils # Man Lymphocytes # (Manual) APTT POC ABG pH ABG pH POC ABG pCO2 POC ABG pO2 ABG pO2 ABG HCO3 ABG Base Excess ABG Hemoglobin VBG pH Oxyhemoglobin Sodium Potassium Chloride Carbon Dioxide BUN Creatinine Glucose POC Glucose 215 H 222 H 210 H Lactic Acid Calcium AST ALT Alkaline Phosphatase CK-MB (CK-2) CK-MB (CK-2) Rel Index Total Protein Albumin TSH Urine WBC (Auto) Salicylates 01/25/17 01/25/17 01/26/17 11:52 17:37 00:02 WBC RBC Hgb Hct MCV MCH RDW Plt Count Lymph % (Auto) [place] % (Auto) Eos % (Auto) Seg Neutrophils % Seg Neuts % (Manual) Lymphocytes % (Manual) Seg Neutrophils # Seg Neutrophils # Man Lymphocytes # (Manual) APTT POC ABG pH ABG pH POC ABG pCO2 POC ABG pO2 ABG pO2 ABG HCO3 ABG Base Excess ABG Hemoglobin VBG pH Oxyhemoglobin Sodium Potassium Chloride Carbon Dioxide BUN Creatinine Glucose POC Glucose 284 H 218 H 192 H Lactic Acid Calcium AST ALT Alkaline Phosphatase CK-MB (CK-2) CK-MB (CK-2) Rel Index Total Protein Albumin TSH Urine WBC (Auto) Salicylates 01/26/17 01/26/17 01/26/17 05:33 12:17 17:50 WBC RBC Hgb Hct MCV MCH RDW Plt Count Lymph % (Auto) [place] % (Auto) Eos % (Auto) Seg Neutrophils % Seg Neuts % (Manual) Lymphocytes % (Manual) Seg Neutrophils # Seg Neutrophils # Man Lymphocytes # (Manual) APTT POC ABG pH ABG pH POC ABG pCO2 POC ABG pO2 ABG pO2 ABG HCO3 ABG Base Excess ABG Hemoglobin VBG pH Oxyhemoglobin Sodium Potassium Chloride Carbon Dioxide BUN Creatinine Glucose POC Glucose 199 H 227 H 229 H Lactic Acid Calcium AST ALT Alkaline Phosphatase CK-MB (CK-2) CK-MB (CK-2) Rel Index Total Protein Albumin TSH Urine WBC (Auto) Salicylates 01/26/17 01/27/17 01/27/17 23:57 05:31 11:42 WBC RBC Hgb Hct MCV MCH RDW Plt Count Lymph % (Auto) [place] % (Auto) Eos % (Auto) Seg Neutrophils % Seg Neuts % (Manual) Lymphocytes % (Manual) Seg Neutrophils # Seg Neutrophils # Man Lymphocytes # (Manual) APTT POC ABG pH ABG pH POC ABG pCO2 POC ABG pO2 ABG pO2 ABG HCO3 ABG Base Excess ABG Hemoglobin VBG pH Oxyhemoglobin Sodium Potassium Chloride Carbon Dioxide BUN Creatinine Glucose POC Glucose 186 H 285 H 260 H Lactic Acid Calcium AST ALT Alkaline Phosphatase CK-MB (CK-2) CK-MB (CK-2) Rel Index Total Protein Albumin TSH Urine WBC (Auto) Salicylates 01/27/17 01/27/17 01/27/17 17:47 23:58 Unknown WBC 12.1 H RBC 3.28 L Hgb 8.5 L Hct 25.5 L MCV 78 L MCH 26 L RDW 16.8 H Plt Count 601 H Lymph % (Auto) [place] % (Auto) Eos % (Auto) Seg Neutrophils % Seg Neuts % (Manual) Lymphocytes % (Manual) Seg Neutrophils # Seg Neutrophils # Man Lymphocytes # (Manual) APTT POC ABG pH ABG pH POC ABG pCO2 POC ABG pO2 ABG pO2 ABG HCO3 ABG Base Excess ABG Hemoglobin VBG pH Oxyhemoglobin Sodium Potassium Chloride Carbon Dioxide BUN Creatinine Glucose POC Glucose 329 H 225 H Lactic Acid Calcium AST ALT Alkaline Phosphatase CK-MB (CK-2) CK-MB (CK-2) Rel Index Total Protein Albumin TSH Urine WBC (Auto) Salicylates 01/27/17 01/28/17 01/28/17 Unknown 03:44 03:44 WBC RBC 3.14 L Hgb 8.2 L Hct 24.1 L MCV 77 L MCH 26 L RDW 16.9 H Plt Count 567 H Lymph % (Auto) [place] % (Auto) Eos % (Auto) Seg Neutrophils % Seg Neuts % (Manual) Lymphocytes % (Manual) Seg Neutrophils # Seg Neutrophils # Man Lymphocytes # (Manual) APTT POC ABG pH ABG pH POC ABG pCO2 POC ABG pO2 ABG pO2 ABG HCO3 ABG Base Excess ABG Hemoglobin VBG pH Oxyhemoglobin Sodium 128 L Potassium 5.4 H Chloride 87.5 L Carbon Dioxide BUN 44 H 42 H Creatinine Glucose 250 H 128 H POC Glucose Lactic Acid Calcium AST ALT Alkaline Phosphatase CK-MB (CK-2) CK-MB (CK-2) Rel Index Total Protein Albumin TSH Urine WBC (Auto) Salicylates 01/28/17 01/28/17 01/28/17 11:43 16:47 17:52 WBC RBC Hgb Hct MCV MCH RDW Plt Count Lymph % (Auto) [place] % (Auto) Eos % (Auto) Seg Neutrophils % Seg Neuts % (Manual) Lymphocytes % (Manual) Seg Neutrophils # Seg Neutrophils # Man Lymphocytes # (Manual) APTT POC ABG pH ABG pH POC ABG pCO2 POC ABG pO2 ABG pO2 ABG HCO3 ABG Base Excess ABG Hemoglobin VBG pH Oxyhemoglobin Sodium Potassium Chloride Carbon Dioxide BUN Creatinine Glucose POC Glucose 351 H 249 H Lactic Acid Calcium AST ALT Alkaline Phosphatase CK-MB (CK-2) CK-MB (CK-2) Rel Index Total Protein Albumin TSH Urine WBC (Auto) > 182.0 H Salicylates 01/29/17 01/29/17 01/29/17 05:25 05:25 09:32 WBC 13.6 H RBC 3.25 L Hgb 8.3 L Hct 25.1 L MCV 77 L MCH 26 L RDW 16.8 H Plt Count 514 H Lymph % (Auto) [place] % (Auto) Eos % (Auto) Seg Neutrophils % Seg Neuts % (Manual) Lymphocytes % (Manual) Seg Neutrophils # Seg Neutrophils # Man Lymphocytes # (Manual) APTT POC ABG pH ABG pH POC ABG pCO2 POC ABG pO2 ABG pO2 ABG HCO3 ABG Base Excess ABG Hemoglobin VBG pH Oxyhemoglobin Sodium Potassium Chloride 97.8 L Carbon Dioxide BUN 34 H Creatinine Glucose 222 H POC Glucose Lactic Acid 2.50 H* Calcium AST ALT Alkaline Phosphatase CK-MB (CK-2) CK-MB (CK-2) Rel Index Total Protein Albumin TSH Urine WBC (Auto) Salicylates 01/29/17 01/29/17 01/29/17 11:56 18:11 23:55 WBC RBC Hgb Hct MCV MCH RDW Plt Count Lymph % (Auto) [place] % (Auto) Eos % (Auto) Seg Neutrophils % Seg Neuts % (Manual) Lymphocytes % (Manual) Seg Neutrophils # Seg Neutrophils # Man Lymphocytes # (Manual) APTT POC ABG pH ABG pH POC ABG pCO2 POC ABG pO2 ABG pO2 ABG HCO3 ABG Base Excess ABG Hemoglobin VBG pH Oxyhemoglobin Sodium Potassium Chloride Carbon Dioxide BUN Creatinine Glucose POC Glucose 261 H 215 H 176 H Lactic Acid Calcium AST ALT Alkaline Phosphatase CK-MB (CK-2) CK-MB (CK-2) Rel Index Total Protein Albumin TSH Urine WBC (Auto) Salicylates 01/30/17 01/30/17 01/30/17 05:31 05:31 05:34 WBC 15.2 H RBC 3.09 L Hgb 7.9 L Hct 23.9 L MCV 77 L MCH 26 L RDW 16.9 H Plt Count 569 H Lymph % (Auto) [place] % (Auto) Eos % (Auto) Seg Neutrophils % Seg Neuts % (Manual) Lymphocytes % (Manual) Seg Neutrophils # Seg Neutrophils # Man Lymphocytes # (Manual) APTT POC ABG pH ABG pH POC ABG pCO2 POC ABG pO2 ABG pO2 ABG HCO3 ABG Base Excess ABG Hemoglobin VBG pH Oxyhemoglobin Sodium Potassium Chloride Carbon Dioxide BUN 24 H Creatinine Glucose 235 H POC Glucose 243 H Lactic Acid Calcium AST ALT Alkaline Phosphatase CK-MB (CK-2) CK-MB (CK-2) Rel Index Total Protein Albumin TSH Urine WBC (Auto) Salicylates 01/30/17 01/30/17 01/30/17 11:38 17:58 23:29 WBC RBC Hgb Hct MCV MCH RDW Plt Count Lymph % (Auto) [place] % (Auto) Eos % (Auto) Seg Neutrophils % Seg Neuts % (Manual) Lymphocytes % (Manual) Seg Neutrophils # Seg Neutrophils # Man Lymphocytes # (Manual) APTT POC ABG pH ABG pH POC ABG pCO2 POC ABG pO2 ABG pO2 ABG HCO3 ABG Base Excess ABG Hemoglobin VBG pH Oxyhemoglobin Sodium Potassium Chloride Carbon Dioxide BUN Creatinine Glucose POC Glucose 298 H 208 H 245 H Lactic Acid Calcium AST ALT Alkaline Phosphatase CK-MB (CK-2) CK-MB (CK-2) Rel Index Total Protein Albumin TSH Urine WBC (Auto) Salicylates 01/31/17 01/31/17 01/31/17 04:39 04:39 05:57 WBC 11.4 H RBC 3.22 L Hgb 8.2 L Hct 24.9 L MCV 78 L MCH 25 L RDW 17.2 H Plt Count 576 H Lymph % (Auto) [place] % (Auto) Eos % (Auto) Seg Neutrophils % Seg Neuts % (Manual) Lymphocytes % (Manual) Seg Neutrophils # Seg Neutrophils # Man Lymphocytes # (Manual) APTT POC ABG pH ABG pH POC ABG pCO2 POC ABG pO2 ABG pO2 ABG HCO3 ABG Base Excess ABG Hemoglobin VBG pH Oxyhemoglobin Sodium Potassium Chloride Carbon Dioxide BUN Creatinine 0.7 L Glucose 223 H POC Glucose 264 H Lactic Acid Calcium AST ALT Alkaline Phosphatase CK-MB (CK-2) CK-MB (CK-2) Rel Index Total Protein Albumin TSH Urine WBC (Auto) Salicylates 01/31/17 01/31/17 01/31/17 12:23 17:41 18:55 WBC RBC Hgb Hct MCV MCH RDW Plt Count Lymph % (Auto) [place] % (Auto) Eos % (Auto) Seg Neutrophils % Seg Neuts % (Manual) Lymphocytes % (Manual) Seg Neutrophils # Seg Neutrophils # Man Lymphocytes # (Manual) APTT POC ABG pH ABG pH POC ABG pCO2 32.8 L POC ABG pO2 ABG pO2 ABG HCO3 ABG Base Excess ABG Hemoglobin VBG pH Oxyhemoglobin Sodium Potassium Chloride Carbon Dioxide BUN Creatinine Glucose POC Glucose 252 H 208 H Lactic Acid Calcium AST ALT Alkaline Phosphatase CK-MB (CK-2) CK-MB (CK-2) Rel Index Total Protein Albumin TSH Urine WBC (Auto) Salicylates 01/31/17 02/01/17 02/01/17 22:59 03:38 03:38 WBC RBC 2.81 L Hgb 7.4 L Hct 22.1 L MCV 79 L MCH 27 L RDW 17.0 H Plt Count 540 H Lymph % (Auto) [place] % (Auto) Eos % (Auto) Seg Neutrophils % Seg Neuts % (Manual) Lymphocytes % (Manual) Seg Neutrophils # Seg Neutrophils # Man Lymphocytes # (Manual) APTT POC ABG pH ABG pH POC ABG pCO2 POC ABG pO2 ABG pO2 ABG HCO3 ABG Base Excess ABG Hemoglobin VBG pH Oxyhemoglobin Sodium Potassium Chloride Carbon Dioxide 21 L BUN Creatinine 0.7 L Glucose POC Glucose 40 L Lactic Acid Calcium AST ALT Alkaline Phosphatase CK-MB (CK-2) CK-MB (CK-2) Rel Index Total Protein Albumin TSH Urine WBC (Auto) Salicylates 02/01/17 02/01/17 02/01/17 05:17 12:19 16:44 WBC RBC Hgb Hct MCV MCH RDW Plt Count Lymph % (Auto) [place] % (Auto) Eos % (Auto) Seg Neutrophils % Seg Neuts % (Manual) Lymphocytes % (Manual) Seg Neutrophils # Seg Neutrophils # Man Lymphocytes # (Manual) APTT POC ABG pH ABG pH POC ABG pCO2 POC ABG pO2 ABG pO2 ABG HCO3 ABG Base Excess ABG Hemoglobin VBG pH Oxyhemoglobin Sodium Potassium Chloride Carbon Dioxide BUN Creatinine Glucose POC Glucose 140 H 213 H 172 H Lactic Acid Calcium AST ALT Alkaline Phosphatase CK-MB (CK-2) CK-MB (CK-2) Rel Index Total Protein Albumin TSH Urine WBC (Auto) Salicylates 02/01/17 02/02/17 02/02/17 23:59 05:14 11:24 WBC RBC Hgb Hct MCV MCH RDW Plt Count Lymph % (Auto) [place] % (Auto) Eos % (Auto) Seg Neutrophils % Seg Neuts % (Manual) Lymphocytes % (Manual) Seg Neutrophils # Seg Neutrophils # Man Lymphocytes # (Manual) APTT POC ABG pH ABG pH POC ABG pCO2 POC ABG pO2 ABG pO2 ABG HCO3 ABG Base Excess ABG Hemoglobin VBG pH Oxyhemoglobin Sodium Potassium Chloride Carbon Dioxide BUN Creatinine Glucose POC Glucose 181 H 194 H 209 H Lactic Acid Calcium AST ALT Alkaline Phosphatase CK-MB (CK-2) CK-MB (CK-2) Rel Index Total Protein Albumin TSH Urine WBC (Auto) Salicylates 02/02/17 02/02/17 02/02/17 11:46 11:46 17:47 WBC RBC 2.94 L Hgb 7.5 L Hct 23.0 L MCV 78 L MCH 25 L RDW 16.9 H Plt Count 520 H Lymph % (Auto) [place] % (Auto) Eos % (Auto) Seg Neutrophils % Seg Neuts % (Manual) Lymphocytes % (Manual) Seg Neutrophils # Seg Neutrophils # Man Lymphocytes # (Manual) APTT POC ABG pH ABG pH POC ABG pCO2 POC ABG pO2 ABG pO2 ABG HCO3 ABG Base Excess ABG Hemoglobin VBG pH Oxyhemoglobin Sodium Potassium Chloride Carbon Dioxide BUN Creatinine 0.6 L Glucose 189 H POC Glucose 147 H Lactic Acid Calcium 8.1 L AST ALT Alkaline Phosphatase CK-MB (CK-2) CK-MB (CK-2) Rel Index Total Protein Albumin TSH Urine WBC (Auto) Salicylates 02/02/17 02/03/17 02/03/17 23:32 05:53 11:19 WBC RBC Hgb Hct MCV MCH RDW Plt Count Lymph % (Auto) [place] % (Auto) Eos % (Auto) Seg Neutrophils % Seg Neuts % (Manual) Lymphocytes % (Manual) Seg Neutrophils # Seg Neutrophils # Man Lymphocytes # (Manual) APTT POC ABG pH ABG pH POC ABG pCO2 POC ABG pO2 ABG pO2 ABG HCO3 ABG Base Excess ABG Hemoglobin VBG pH Oxyhemoglobin Sodium Potassium Chloride Carbon Dioxide BUN Creatinine Glucose POC Glucose 176 H 224 H 228 H Lactic Acid Calcium AST ALT Alkaline Phosphatase CK-MB (CK-2) CK-MB (CK-2) Rel Index Total Protein Albumin TSH Urine WBC (Auto) Salicylates 02/03/17 02/03/17 02/04/17 16:59 23:38 05:45 WBC RBC Hgb Hct MCV MCH RDW Plt Count Lymph % (Auto) [place] % (Auto) Eos % (Auto) Seg Neutrophils % Seg Neuts % (Manual) Lymphocytes % (Manual) Seg Neutrophils # Seg Neutrophils # Man Lymphocytes # (Manual) APTT POC ABG pH ABG pH POC ABG pCO2 POC ABG pO2 ABG pO2 ABG HCO3 ABG Base Excess ABG Hemoglobin VBG pH Oxyhemoglobin Sodium Potassium Chloride Carbon Dioxide BUN Creatinine Glucose POC Glucose 189 H 191 H 251 H Lactic Acid Calcium AST ALT Alkaline Phosphatase CK-MB (CK-2) CK-MB (CK-2) Rel Index Total Protein Albumin TSH Urine WBC (Auto) Salicylates 02/04/17 02/04/17 02/05/17 11:20 17:20 00:17 WBC RBC Hgb Hct MCV MCH RDW Plt Count Lymph % (Auto) [place] % (Auto) Eos % (Auto) Seg Neutrophils % Seg Neuts % (Manual) Lymphocytes % (Manual) Seg Neutrophils # Seg Neutrophils # Man Lymphocytes # (Manual) APTT POC ABG pH ABG pH POC ABG pCO2 POC ABG pO2 ABG pO2 ABG HCO3 ABG Base Excess ABG Hemoglobin VBG pH Oxyhemoglobin Sodium Potassium Chloride Carbon Dioxide BUN Creatinine Glucose POC Glucose 243 H 163 H 200 H Lactic Acid Calcium AST ALT Alkaline Phosphatase CK-MB (CK-2) CK-MB (CK-2) Rel Index Total Protein Albumin TSH Urine WBC (Auto) Salicylates 02/05/17 02/05/17 02/05/17 05:38 12:38 16:29 WBC RBC Hgb Hct MCV MCH RDW Plt Count Lymph % (Auto) [place] % (Auto) Eos % (Auto) Seg Neutrophils % Seg Neuts % (Manual) Lymphocytes % (Manual) Seg Neutrophils # Seg Neutrophils # Man Lymphocytes # (Manual) APTT POC ABG pH ABG pH POC ABG pCO2 POC ABG pO2 ABG pO2 ABG HCO3 ABG Base Excess ABG Hemoglobin VBG pH Oxyhemoglobin Sodium Potassium Chloride Carbon Dioxide BUN Creatinine Glucose POC Glucose 248 H 241 H 257 H Lactic Acid Calcium AST ALT Alkaline Phosphatase CK-MB (CK-2) CK-MB (CK-2) Rel Index Total Protein Albumin TSH Urine WBC (Auto) Salicylates 02/05/17 02/06/17 02/06/17 23:56 05:30 11:50 WBC RBC Hgb Hct MCV MCH RDW Plt Count Lymph % (Auto) [place] % (Auto) Eos % (Auto) Seg Neutrophils % Seg Neuts % (Manual) Lymphocytes % (Manual) Seg Neutrophils # Seg Neutrophils # Man Lymphocytes # (Manual) APTT POC ABG pH ABG pH POC ABG pCO2 POC ABG pO2 ABG pO2 ABG HCO3 ABG Base Excess ABG Hemoglobin VBG pH Oxyhemoglobin Sodium Potassium Chloride Carbon Dioxide BUN Creatinine Glucose POC Glucose 258 H 120 H 254 H Lactic Acid Calcium AST ALT Alkaline Phosphatase CK-MB (CK-2) CK-MB (CK-2) Rel Index Total Protein Albumin TSH Urine WBC (Auto) Salicylates 02/06/17 02/06/17 02/07/17 17:11 23:50 05:22 WBC RBC Hgb Hct MCV MCH RDW Plt Count Lymph % (Auto) [place] % (Auto) Eos % (Auto) Seg Neutrophils % Seg Neuts % (Manual) Lymphocytes % (Manual) Seg Neutrophils # Seg Neutrophils # Man Lymphocytes # (Manual) APTT POC ABG pH ABG pH POC ABG pCO2 POC ABG pO2 ABG pO2 ABG HCO3 ABG Base Excess ABG Hemoglobin VBG pH Oxyhemoglobin Sodium Potassium Chloride Carbon Dioxide BUN Creatinine Glucose POC Glucose 149 H 240 H 258 H Lactic Acid Calcium AST ALT Alkaline Phosphatase CK-MB (CK-2) CK-MB (CK-2) Rel Index Total Protein Albumin TSH Urine WBC (Auto) Salicylates 02/07/17 02/07/17 02/07/17 11:15 18:33 23:59 WBC RBC Hgb Hct MCV MCH RDW Plt Count Lymph % (Auto) [place] % (Auto) Eos % (Auto) Seg Neutrophils % Seg Neuts % (Manual) Lymphocytes % (Manual) Seg Neutrophils # Seg Neutrophils # Man Lymphocytes # (Manual) APTT POC ABG pH ABG pH POC ABG pCO2 POC ABG pO2 ABG pO2 ABG HCO3 ABG Base Excess ABG Hemoglobin VBG pH Oxyhemoglobin Sodium Potassium Chloride Carbon Dioxide BUN Creatinine Glucose POC Glucose 239 H 176 H 186 H Lactic Acid Calcium AST ALT Alkaline Phosphatase CK-MB (CK-2) CK-MB (CK-2) Rel Index Total Protein Albumin TSH Urine WBC (Auto) Salicylates 02/08/17 02/08/17 02/08/17 06:15 11:55 16:55 WBC RBC Hgb Hct MCV MCH RDW Plt Count Lymph % (Auto) [place] % (Auto) Eos % (Auto) Seg Neutrophils % Seg Neuts % (Manual) Lymphocytes % (Manual) Seg Neutrophils # Seg Neutrophils # Man Lymphocytes # (Manual) APTT POC ABG pH ABG pH POC ABG pCO2 POC ABG pO2 ABG pO2 ABG HCO3 ABG Base Excess ABG Hemoglobin VBG pH Oxyhemoglobin Sodium Potassium Chloride Carbon Dioxide BUN Creatinine Glucose POC Glucose 195 H 129 H 246 H Lactic Acid Calcium AST ALT Alkaline Phosphatase CK-MB (CK-2) CK-MB (CK-2) Rel Index Total Protein Albumin TSH Urine WBC (Auto) Salicylates 02/08/17 02/09/17 02/09/17 23:51 05:51 07:24 WBC 14.7 H RBC 3.39 L Hgb 8.9 L Hct 26.4 L MCV 78 L MCH 26 L RDW 18.4 H Plt Count 670 H Lymph % (Auto) 11.8 L [place] % (Auto) Eos % (Auto) Seg Neutrophils % 81.2 H Seg Neuts % (Manual) Lymphocytes % (Manual) Seg Neutrophils # 11.9 H Seg Neutrophils # Man Lymphocytes # (Manual) APTT POC ABG pH ABG pH POC ABG pCO2 POC ABG pO2 ABG pO2 ABG HCO3 ABG Base Excess ABG Hemoglobin VBG pH Oxyhemoglobin Sodium Potassium Chloride Carbon Dioxide BUN Creatinine Glucose POC Glucose 262 H 295 H Lactic Acid Calcium AST ALT Alkaline Phosphatase CK-MB (CK-2) CK-MB (CK-2) Rel Index Total Protein Albumin TSH Urine WBC (Auto) Salicylates 02/09/17 02/09/17 02/09/17 07:24 12:08 18:39 WBC RBC Hgb Hct MCV MCH RDW Plt Count Lymph % (Auto) [place] % (Auto) Eos % (Auto) Seg Neutrophils % Seg Neuts % (Manual) Lymphocytes % (Manual) Seg Neutrophils # Seg Neutrophils # Man Lymphocytes # (Manual) APTT POC ABG pH ABG pH POC ABG pCO2 POC ABG pO2 ABG pO2 ABG HCO3 ABG Base Excess ABG Hemoglobin VBG pH Oxyhemoglobin Sodium Potassium Chloride 95.5 L Carbon Dioxide BUN 52 H Creatinine Glucose 277 H POC Glucose 236 H 151 H Lactic Acid Calcium AST ALT Alkaline Phosphatase CK-MB (CK-2) CK-MB (CK-2) Rel Index Total Protein Albumin TSH Urine WBC (Auto) Salicylates 02/10/17 02/10/17 02/10/17 00:01 05:44 11:21 WBC RBC Hgb Hct MCV MCH RDW Plt Count Lymph % (Auto) [place] % (Auto) Eos % (Auto) Seg Neutrophils % Seg Neuts % (Manual) Lymphocytes % (Manual) Seg Neutrophils # Seg Neutrophils # Man Lymphocytes # (Manual) APTT POC ABG pH ABG pH POC ABG pCO2 POC ABG pO2 ABG pO2 ABG HCO3 ABG Base Excess ABG Hemoglobin VBG pH Oxyhemoglobin Sodium Potassium Chloride Carbon Dioxide BUN Creatinine Glucose POC Glucose 210 H 201 H 233 H Lactic Acid Calcium AST ALT Alkaline Phosphatase CK-MB (CK-2) CK-MB (CK-2) Rel Index Total Protein Albumin TSH Urine WBC (Auto) Salicylates 02/10/17 02/10/17 02/11/17 17:29 23:56 05:24 WBC RBC Hgb Hct MCV MCH RDW Plt Count Lymph % (Auto) [place] % (Auto) Eos % (Auto) Seg Neutrophils % Seg Neuts % (Manual) Lymphocytes % (Manual) Seg Neutrophils # Seg Neutrophils # Man Lymphocytes # (Manual) APTT POC ABG pH ABG pH POC ABG pCO2 POC ABG pO2 ABG pO2 ABG HCO3 ABG Base Excess ABG Hemoglobin VBG pH Oxyhemoglobin Sodium Potassium Chloride Carbon Dioxide BUN Creatinine Glucose POC Glucose 167 H 191 H 135 H Lactic Acid Calcium AST ALT Alkaline Phosphatase CK-MB (CK-2) CK-MB (CK-2) Rel Index Total Protein Albumin TSH Urine WBC (Auto) Salicylates 02/11/17 02/11/17 02/11/17 12:25 17:03 23:59 WBC RBC Hgb Hct MCV MCH RDW Plt Count Lymph % (Auto) [place] % (Auto) Eos % (Auto) Seg Neutrophils % Seg Neuts % (Manual) Lymphocytes % (Manual) Seg Neutrophils # Seg Neutrophils # Man Lymphocytes # (Manual) APTT POC ABG pH ABG pH POC ABG pCO2 POC ABG pO2 ABG pO2 ABG HCO3 ABG Base Excess ABG Hemoglobin VBG pH Oxyhemoglobin Sodium Potassium Chloride Carbon Dioxide BUN Creatinine Glucose POC Glucose 275 H 172 H 215 H Lactic Acid Calcium AST ALT Alkaline Phosphatase CK-MB (CK-2) CK-MB (CK-2) Rel Index Total Protein Albumin TSH Urine WBC (Auto) Salicylates 02/12/17 02/12/17 02/12/17 05:39 11:33 17:55 WBC RBC Hgb Hct MCV MCH RDW Plt Count Lymph % (Auto) [place] % (Auto) Eos % (Auto) Seg Neutrophils % Seg Neuts % (Manual) Lymphocytes % (Manual) Seg Neutrophils # Seg Neutrophils # Man Lymphocytes # (Manual) APTT POC ABG pH ABG pH POC ABG pCO2 POC ABG pO2 ABG pO2 ABG HCO3 ABG Base Excess ABG Hemoglobin VBG pH Oxyhemoglobin Sodium Potassium Chloride Carbon Dioxide BUN Creatinine Glucose POC Glucose 261 H 217 H 172 H Lactic Acid Calcium AST ALT Alkaline Phosphatase CK-MB (CK-2) CK-MB (CK-2) Rel Index Total Protein Albumin TSH Urine WBC (Auto) Salicylates 02/13/17 02/13/17 02/13/17 00:25 06:46 11:26 WBC RBC Hgb Hct MCV MCH RDW Plt Count Lymph % (Auto) [place] % (Auto) Eos % (Auto) Seg Neutrophils % Seg Neuts % (Manual) Lymphocytes % (Manual) Seg Neutrophils # Seg Neutrophils # Man Lymphocytes # (Manual) APTT POC ABG pH ABG pH POC ABG pCO2 POC ABG pO2 ABG pO2 ABG HCO3 ABG Base Excess ABG Hemoglobin VBG pH Oxyhemoglobin Sodium Potassium Chloride Carbon Dioxide BUN Creatinine Glucose POC Glucose 207 H 219 H 231 H Lactic Acid Calcium AST ALT Alkaline Phosphatase CK-MB (CK-2) CK-MB (CK-2) Rel Index Total Protein Albumin TSH Urine WBC (Auto) Salicylates 02/13/17 02/13/17 02/14/17 17:12 23:44 05:44 WBC RBC Hgb Hct MCV MCH RDW Plt Count Lymph % (Auto) [place] % (Auto) Eos % (Auto) Seg Neutrophils % Seg Neuts % (Manual) Lymphocytes % (Manual) Seg Neutrophils # Seg Neutrophils # Man Lymphocytes # (Manual) APTT POC ABG pH ABG pH POC ABG pCO2 POC ABG pO2 ABG pO2 ABG HCO3 ABG Base Excess ABG Hemoglobin VBG pH Oxyhemoglobin Sodium Potassium Chloride Carbon Dioxide BUN Creatinine Glucose POC Glucose 190 H 256 H 184 H Lactic Acid Calcium AST ALT Alkaline Phosphatase CK-MB (CK-2) CK-MB (CK-2) Rel Index Total Protein Albumin TSH Urine WBC (Auto) Salicylates 02/14/17 02/14/17 02/14/17 12:21 17:57 23:18 WBC RBC Hgb Hct MCV MCH RDW Plt Count Lymph % (Auto) [place] % (Auto) Eos % (Auto) Seg Neutrophils % Seg Neuts % (Manual) Lymphocytes % (Manual) Seg Neutrophils # Seg Neutrophils # Man Lymphocytes # (Manual) APTT POC ABG pH ABG pH POC ABG pCO2 POC ABG pO2 ABG pO2 ABG HCO3 ABG Base Excess ABG Hemoglobin VBG pH Oxyhemoglobin Sodium Potassium Chloride Carbon Dioxide BUN Creatinine Glucose POC Glucose 233 H 155 H 165 H Lactic Acid Calcium AST ALT Alkaline Phosphatase CK-MB (CK-2) CK-MB (CK-2) Rel Index Total Protein Albumin TSH Urine WBC (Auto) Salicylates 02/15/17 02/15/17 02/15/17 05:33 11:45 17:20 WBC RBC Hgb Hct MCV MCH RDW Plt Count Lymph % (Auto) [place] % (Auto) Eos % (Auto) Seg Neutrophils % Seg Neuts % (Manual) Lymphocytes % (Manual) Seg Neutrophils # Seg Neutrophils # Man Lymphocytes # (Manual) APTT POC ABG pH ABG pH POC ABG pCO2 POC ABG pO2 ABG pO2 ABG HCO3 ABG Base Excess ABG Hemoglobin VBG pH Oxyhemoglobin Sodium Potassium Chloride Carbon Dioxide BUN Creatinine Glucose POC Glucose 239 H 130 H 189 H Lactic Acid Calcium AST ALT Alkaline Phosphatase CK-MB (CK-2) CK-MB (CK-2) Rel Index Total Protein Albumin TSH Urine WBC (Auto) Salicylates 02/16/17 02/16/17 02/16/17 00:14 05:09 12:31 WBC RBC Hgb Hct MCV MCH RDW Plt Count Lymph % (Auto) [place] % (Auto) Eos % (Auto) Seg Neutrophils % Seg Neuts % (Manual) Lymphocytes % (Manual) Seg Neutrophils # Seg Neutrophils # Man Lymphocytes # (Manual) APTT POC ABG pH ABG pH POC ABG pCO2 POC ABG pO2 ABG pO2 ABG HCO3 ABG Base Excess ABG Hemoglobin VBG pH Oxyhemoglobin Sodium Potassium Chloride Carbon Dioxide BUN Creatinine Glucose POC Glucose 197 H 226 H 178 H Lactic Acid Calcium AST ALT Alkaline Phosphatase CK-MB (CK-2) CK-MB (CK-2) Rel Index Total Protein Albumin TSH Urine WBC (Auto) Salicylates 02/16/17 02/16/17 02/17/17 16:35 23:49 05:37 WBC RBC Hgb Hct MCV MCH RDW Plt Count Lymph % (Auto) [place] % (Auto) Eos % (Auto) Seg Neutrophils % Seg Neuts % (Manual) Lymphocytes % (Manual) Seg Neutrophils # Seg Neutrophils # Man Lymphocytes # (Manual) APTT POC ABG pH ABG pH POC ABG pCO2 POC ABG pO2 ABG pO2 ABG HCO3 ABG Base Excess ABG Hemoglobin VBG pH Oxyhemoglobin Sodium Potassium Chloride Carbon Dioxide BUN Creatinine Glucose POC Glucose 174 H 62 L 153 H Lactic Acid Calcium AST ALT Alkaline Phosphatase CK-MB (CK-2) CK-MB (CK-2) Rel Index Total Protein Albumin TSH Urine WBC (Auto) Salicylates 02/17/17 02/17/17 02/17/17 11:39 17:02 22:24 WBC RBC Hgb Hct MCV MCH RDW Plt Count Lymph % (Auto) [place] % (Auto) Eos % (Auto) Seg Neutrophils % Seg Neuts % (Manual) Lymphocytes % (Manual) Seg Neutrophils # Seg Neutrophils # Man Lymphocytes # (Manual) APTT POC ABG pH ABG pH POC ABG pCO2 POC ABG pO2 ABG pO2 ABG HCO3 ABG Base Excess ABG Hemoglobin VBG pH Oxyhemoglobin Sodium Potassium Chloride Carbon Dioxide BUN Creatinine Glucose POC Glucose 231 H 112 H 116 H Lactic Acid Calcium AST ALT Alkaline Phosphatase CK-MB (CK-2) CK-MB (CK-2) Rel Index Total Protein Albumin TSH Urine WBC (Auto) Salicylates 02/18/17 02/19/17 02/19/17 15:34 05:09 07:57 WBC RBC Hgb Hct MCV MCH RDW Plt Count Lymph % (Auto) [place] % (Auto) Eos % (Auto) Seg Neutrophils % Seg Neuts % (Manual) Lymphocytes % (Manual) Seg Neutrophils # Seg Neutrophils # Man Lymphocytes # (Manual) APTT POC ABG pH ABG pH POC ABG pCO2 POC ABG pO2 ABG pO2 ABG HCO3 ABG Base Excess ABG Hemoglobin VBG pH Oxyhemoglobin Sodium Potassium Chloride Carbon Dioxide BUN Creatinine Glucose POC Glucose 215 H 218 H 283 H Lactic Acid Calcium AST ALT Alkaline Phosphatase CK-MB (CK-2) CK-MB (CK-2) Rel Index Total Protein Albumin TSH Urine WBC (Auto) Salicylates 02/19/17 02/19/17 02/20/17 14:49 22:10 05:10 WBC RBC Hgb Hct MCV MCH RDW Plt Count Lymph % (Auto) [place] % (Auto) Eos % (Auto) Seg Neutrophils % Seg Neuts % (Manual) Lymphocytes % (Manual) Seg Neutrophils # Seg Neutrophils # Man Lymphocytes # (Manual) APTT POC ABG pH ABG pH POC ABG pCO2 POC ABG pO2 ABG pO2 ABG HCO3 ABG Base Excess ABG Hemoglobin VBG pH Oxyhemoglobin Sodium Potassium Chloride Carbon Dioxide BUN Creatinine Glucose POC Glucose 290 H 169 H 209 H Lactic Acid Calcium AST ALT Alkaline Phosphatase CK-MB (CK-2) CK-MB (CK-2) Rel Index Total Protein Albumin TSH Urine WBC (Auto) Salicylates 02/20/17 02/20/17 02/21/17 15:05 21:52 02:00 WBC RBC Hgb Hct MCV MCH RDW Plt Count Lymph % (Auto) [place] % (Auto) Eos % (Auto) Seg Neutrophils % Seg Neuts % (Manual) Lymphocytes % (Manual) Seg Neutrophils # Seg Neutrophils # Man Lymphocytes # (Manual) APTT POC ABG pH ABG pH POC ABG pCO2 POC ABG pO2 ABG pO2 ABG HCO3 ABG Base Excess ABG Hemoglobin VBG pH Oxyhemoglobin Sodium Potassium Chloride Carbon Dioxide BUN Creatinine Glucose POC Glucose 172 H 209 H 216 H Lactic Acid Calcium AST ALT Alkaline Phosphatase CK-MB (CK-2) CK-MB (CK-2) Rel Index Total Protein Albumin TSH Urine WBC (Auto) Salicylates 02/21/17 02/21/17 02/21/17 04:54 14:43 17:47 WBC RBC Hgb Hct MCV MCH RDW Plt Count Lymph % (Auto) [place] % (Auto) Eos % (Auto) Seg Neutrophils % Seg Neuts % (Manual) Lymphocytes % (Manual) Seg Neutrophils # Seg Neutrophils # Man Lymphocytes # (Manual) APTT POC ABG pH ABG pH POC ABG pCO2 POC ABG pO2 ABG pO2 ABG HCO3 ABG Base Excess ABG Hemoglobin VBG pH Oxyhemoglobin Sodium Potassium Chloride Carbon Dioxide BUN Creatinine Glucose POC Glucose 227 H 290 H 220 H Lactic Acid Calcium AST ALT Alkaline Phosphatase CK-MB (CK-2) CK-MB (CK-2) Rel Index Total Protein Albumin TSH Urine WBC (Auto) Salicylates 02/21/17 02/22/17 02/22/17 22:02 04:52 15:25 WBC RBC Hgb Hct MCV MCH RDW Plt Count Lymph % (Auto) [place] % (Auto) Eos % (Auto) Seg Neutrophils % Seg Neuts % (Manual) Lymphocytes % (Manual) Seg Neutrophils # Seg Neutrophils # Man Lymphocytes # (Manual) APTT POC ABG pH ABG pH POC ABG pCO2 POC ABG pO2 ABG pO2 ABG HCO3 ABG Base Excess ABG Hemoglobin VBG pH Oxyhemoglobin Sodium Potassium Chloride Carbon Dioxide BUN Creatinine Glucose POC Glucose 246 H 212 H 236 H Lactic Acid Calcium AST ALT Alkaline Phosphatase CK-MB (CK-2) CK-MB (CK-2) Rel Index Total Protein Albumin TSH Urine WBC (Auto) Salicylates 02/22/17 02/23/17 02/23/17 21:33 06:04 10:00 WBC RBC Hgb Hct MCV MCH RDW Plt Count Lymph % (Auto) [place] % (Auto) Eos % (Auto) Seg Neutrophils % Seg Neuts % (Manual) Lymphocytes % (Manual) Seg Neutrophils # Seg Neutrophils # Man Lymphocytes # (Manual) APTT POC ABG pH ABG pH POC ABG pCO2 POC ABG pO2 ABG pO2 ABG HCO3 ABG Base Excess ABG Hemoglobin VBG pH Oxyhemoglobin Sodium Potassium Chloride Carbon Dioxide BUN Creatinine Glucose POC Glucose 255 H 208 H 174 H Lactic Acid Calcium AST ALT Alkaline Phosphatase CK-MB (CK-2) CK-MB (CK-2) Rel Index Total Protein Albumin TSH Urine WBC (Auto) Salicylates 02/23/17 02/23/17 02/23/17 12:52 17:15 21:51 WBC RBC Hgb Hct MCV MCH RDW Plt Count Lymph % (Auto) [place] % (Auto) Eos % (Auto) Seg Neutrophils % Seg Neuts % (Manual) Lymphocytes % (Manual) Seg Neutrophils # Seg Neutrophils # Man Lymphocytes # (Manual) APTT POC ABG pH ABG pH POC ABG pCO2 POC ABG pO2 ABG pO2 ABG HCO3 ABG Base Excess ABG Hemoglobin VBG pH Oxyhemoglobin Sodium Potassium Chloride Carbon Dioxide BUN Creatinine Glucose POC Glucose 203 H 269 H 205 H Lactic Acid Calcium AST ALT Alkaline Phosphatase CK-MB (CK-2) CK-MB (CK-2) Rel Index Total Protein Albumin TSH Urine WBC (Auto) Salicylates 02/24/17 02/24/17 02/24/17 10:23 17:45 21:24 WBC RBC Hgb Hct MCV MCH RDW Plt Count Lymph % (Auto) [place] % (Auto) Eos % (Auto) Seg Neutrophils % Seg Neuts % (Manual) Lymphocytes % (Manual) Seg Neutrophils # Seg Neutrophils # Man Lymphocytes # (Manual) APTT POC ABG pH ABG pH POC ABG pCO2 POC ABG pO2 ABG pO2 ABG HCO3 ABG Base Excess ABG Hemoglobin VBG pH Oxyhemoglobin Sodium Potassium Chloride Carbon Dioxide BUN Creatinine Glucose POC Glucose 280 H 239 H 254 H Lactic Acid Calcium AST ALT Alkaline Phosphatase CK-MB (CK-2) CK-MB (CK-2) Rel Index Total Protein Albumin TSH Urine WBC (Auto) Salicylates 02/25/17 02/25/17 02/25/17 02:12 05:17 14:32 WBC RBC Hgb Hct MCV MCH RDW Plt Count Lymph % (Auto) [place] % (Auto) Eos % (Auto) Seg Neutrophils % Seg Neuts % (Manual) Lymphocytes % (Manual) Seg Neutrophils # Seg Neutrophils # Man Lymphocytes # (Manual) APTT POC ABG pH ABG pH POC ABG pCO2 POC ABG pO2 ABG pO2 ABG HCO3 ABG Base Excess ABG Hemoglobin VBG pH Oxyhemoglobin Sodium Potassium Chloride Carbon Dioxide BUN Creatinine Glucose POC Glucose 296 H 332 H 353 H Lactic Acid Calcium AST ALT Alkaline Phosphatase CK-MB (CK-2) CK-MB (CK-2) Rel Index Total Protein Albumin TSH Urine WBC (Auto) Salicylates 02/25/17 02/26/17 02/26/17 22:14 00:37 05:52 WBC RBC Hgb Hct MCV MCH RDW Plt Count Lymph % (Auto) [place] % (Auto) Eos % (Auto) Seg Neutrophils % Seg Neuts % (Manual) Lymphocytes % (Manual) Seg Neutrophils # Seg Neutrophils # Man Lymphocytes # (Manual) APTT POC ABG pH ABG pH POC ABG pCO2 POC ABG pO2 ABG pO2 ABG HCO3 ABG Base Excess ABG Hemoglobin VBG pH Oxyhemoglobin Sodium Potassium Chloride Carbon Dioxide BUN Creatinine Glucose POC Glucose 201 H 233 H 269 H Lactic Acid Calcium AST ALT Alkaline Phosphatase CK-MB (CK-2) CK-MB (CK-2) Rel Index Total Protein Albumin TSH Urine WBC (Auto) Salicylates 02/26/17 02/26/17 02/26/17 11:48 13:49 21:26 WBC RBC Hgb Hct MCV MCH RDW Plt Count Lymph % (Auto) [place] % (Auto) Eos % (Auto) Seg Neutrophils % Seg Neuts % (Manual) Lymphocytes % (Manual) Seg Neutrophils # Seg Neutrophils # Man Lymphocytes # (Manual) APTT POC ABG pH ABG pH POC ABG pCO2 POC ABG pO2 ABG pO2 ABG HCO3 ABG Base Excess ABG Hemoglobin VBG pH Oxyhemoglobin Sodium Potassium Chloride Carbon Dioxide BUN Creatinine Glucose POC Glucose 333 H 322 H 244 H Lactic Acid Calcium AST ALT Alkaline Phosphatase CK-MB (CK-2) CK-MB (CK-2) Rel Index Total Protein Albumin TSH Urine WBC (Auto) Salicylates 1102/27/17 02/27/17 05:27 13:51 21:48 WBC RBC Hgb Hct MCV MCH RDW Plt Count Lymph % (Auto) [place] % (Auto) Eos % (Auto) Seg Neutrophils % Seg Neuts % (Manual) Lymphocytes % (Manual) Seg Neutrophils # Seg Neutrophils # Man Lymphocytes # (Manual) APTT POC ABG pH ABG pH POC ABG pCO2 POC ABG pO2 ABG pO2 ABG HCO3 ABG Base Excess ABG Hemoglobin VBG pH Oxyhemoglobin Sodium Potassium Chloride Carbon Dioxide BUN Creatinine Glucose POC Glucose 217 H 239 H 254 H Lactic Acid Calcium AST ALT Alkaline Phosphatase CK-MB (CK-2) CK-MB (CK-2) Rel Index Total Protein Albumin TSH Urine WBC (Auto) Salicylates 02/28/17 02/28/17 02/28/17 05:38 11:00 19:44 WBC RBC Hgb Hct MCV MCH RDW Plt Count Lymph % (Auto) [place] % (Auto) Eos % (Auto) Seg Neutrophils % Seg Neuts % (Manual) Lymphocytes % (Manual) Seg Neutrophils # Seg Neutrophils # Man Lymphocytes # (Manual) APTT POC ABG pH ABG pH POC ABG pCO2 POC ABG pO2 ABG pO2 ABG HCO3 ABG Base Excess ABG Hemoglobin VBG pH Oxyhemoglobin Sodium Potassium Chloride Carbon Dioxide BUN Creatinine Glucose POC Glucose 325 H 203 H 116 H Lactic Acid Calcium AST ALT Alkaline Phosphatase CK-MB (CK-2) CK-MB (CK-2) Rel Index Total Protein Albumin TSH Urine WBC (Auto) Salicylates 03/01/17 03/01/17 03/01/17 00:08 05:31 12:17 WBC RBC Hgb Hct MCV MCH RDW Plt Count Lymph % (Auto) [place] % (Auto) Eos % (Auto) Seg Neutrophils % Seg Neuts % (Manual) Lymphocytes % (Manual) Seg Neutrophils # Seg Neutrophils # Man Lymphocytes # (Manual) APTT POC ABG pH ABG pH POC ABG pCO2 POC ABG pO2 ABG pO2 ABG HCO3 ABG Base Excess ABG Hemoglobin VBG pH Oxyhemoglobin Sodium Potassium Chloride Carbon Dioxide BUN Creatinine Glucose POC Glucose 202 H 183 H 184 H Lactic Acid Calcium AST ALT Alkaline Phosphatase CK-MB (CK-2) CK-MB (CK-2) Rel Index Total Protein Albumin TSH Urine WBC (Auto) Salicylates 03/02/17 03/02/1703/02/17 00:12 05:58 18:22 WBC RBC Hgb Hct MCV MCH RDW Plt Count Lymph % (Auto) [place] % (Auto) Eos % (Auto) Seg Neutrophils % Seg Neuts % (Manual) Lymphocytes % (Manual) Seg Neutrophils # Seg Neutrophils # Man Lymphocytes # (Manual) APTT POC ABG pH ABG pH POC ABG pCO2 POC ABG pO2 ABG pO2 ABG HCO3 ABG Base Excess ABG Hemoglobin VBG pH Oxyhemoglobin Sodium Potassium Chloride Carbon Dioxide BUN Creatinine Glucose POC Glucose 117 H 176 H 156 H Lactic Acid Calcium AST ALT Alkaline Phosphatase CK-MB (CK-2) CK-MB (CK-2) Rel Index Total Protein Albumin TSH Urine WBC (Auto) Salicylates 03/02/17 03/03/17 03/03/17 23:51 05:44 11:32 WBC RBC Hgb Hct MCV MCH RDW Plt Count Lymph % (Auto) [place] % (Auto) Eos % (Auto) Seg Neutrophils % Seg Neuts % (Manual) Lymphocytes % (Manual) Seg Neutrophils # Seg Neutrophils # Man Lymphocytes # (Manual) APTT POC ABG pH ABG pH POC ABG pCO2 POC ABG pO2 ABG pO2 ABG HCO3 ABG Base Excess ABG Hemoglobin VBG pH Oxyhemoglobin Sodium Potassium Chloride Carbon Dioxide BUN Creatinine Glucose POC Glucose 211 H 117 H 133 H Lactic Acid Calcium AST ALT Alkaline Phosphatase CK-MB (CK-2) CK-MB (CK-2) Rel Index Total Protein Albumin TSH Urine WBC (Auto) Salicylates 03/03/17 03/03/17 03/04/17 17:43 23:17 05:30 WBC RBC Hgb Hct MCV MCH RDW Plt Count Lymph % (Auto) [place] % (Auto) Eos % (Auto) Seg Neutrophils % Seg Neuts % (Manual) Lymphocytes % (Manual) Seg Neutrophils # Seg Neutrophils # Man Lymphocytes # (Manual) APTT POC ABG pH ABG pH POC ABG pCO2 POC ABG pO2 ABG pO2 ABG HCO3 ABG Base Excess ABG Hemoglobin VBG pH Oxyhemoglobin Sodium Potassium Chloride Carbon Dioxide BUN Creatinine Glucose POC Glucose 206 H 170 H 126 H Lactic Acid Calcium AST ALT Alkaline Phosphatase CK-MB (CK-2) CK-MB (CK-2) Rel Index Total Protein Albumin TSH Urine WBC (Auto) Salicylates 03/04/17 03/04/17 03/05/17 12:17 17:27 05:20 WBC RBC Hgb Hct MCV MCH RDW Plt Count Lymph % (Auto) [place] % (Auto) Eos % (Auto) Seg Neutrophils % Seg Neuts % (Manual) Lymphocytes % (Manual) Seg Neutrophils # Seg Neutrophils # Man Lymphocytes # (Manual) APTT POC ABG pH ABG pH POC ABG pCO2 POC ABG pO2 ABG pO2 ABG HCO3 ABG Base Excess ABG Hemoglobin VBG pH Oxyhemoglobin Sodium Potassium Chloride Carbon Dioxide BUN Creatinine Glucose POC Glucose 135 H 121 H 185 H Lactic Acid Calcium AST ALT Alkaline Phosphatase CK-MB (CK-2) CK-MB (CK-2) Rel Index Total Protein Albumin TSH Urine WBC (Auto) Salicylates 03/05/17 03/06/17 03/06/17 11:50 11:52 17:34 WBC RBC Hgb Hct MCV MCH RDW Plt Count Lymph % (Auto) [place] % (Auto) Eos % (Auto) Seg Neutrophils % Seg Neuts % (Manual) Lymphocytes % (Manual) Seg Neutrophils # Seg Neutrophils # Man Lymphocytes # (Manual) APTT POC ABG pH ABG pH POC ABG pCO2 POC ABG pO2 ABG pO2 ABG HCO3 ABG Base Excess ABG Hemoglobin VBG pH Oxyhemoglobin Sodium Potassium Chloride Carbon Dioxide BUN Creatinine Glucose POC Glucose 116 H 133 H 181 H Lactic Acid Calcium AST ALT Alkaline Phosphatase CK-MB (CK-2) CK-MB (CK-2) Rel Index Total Protein Albumin TSH Urine WBC (Auto) Salicylates 03/07/17 03/07/17 03/07/17 05:21 11:36 17:49 WBC RBC Hgb Hct MCV MCH RDW Plt Count Lymph % (Auto) [place] % (Auto) Eos % (Auto) Seg Neutrophils % Seg Neuts % (Manual) Lymphocytes % (Manual) Seg Neutrophils # Seg Neutrophils # Man Lymphocytes # (Manual) APTT POC ABG pH ABG pH POC ABG pCO2 POC ABG pO2 ABG pO2 ABG HCO3 ABG Base Excess ABG Hemoglobin VBG pH Oxyhemoglobin Sodium Potassium Chloride Carbon Dioxide BUN Creatinine Glucose POC Glucose 159 H 137 H 158 H Lactic Acid Calcium AST ALT Alkaline Phosphatase CK-MB (CK-2) CK-MB (CK-2) Rel Index Total Protein Albumin TSH Urine WBC (Auto) Salicylates 03/08/17 03/08/17 03/08/17 05:51 13:58 23:50 WBC RBC Hgb Hct MCV MCH RDW Plt Count Lymph % (Auto) [place] % (Auto) Eos % (Auto) Seg Neutrophils % Seg Neuts % (Manual) Lymphocytes % (Manual) Seg Neutrophils # Seg Neutrophils # Man Lymphocytes # (Manual) APTT POC ABG pH ABG pH POC ABG pCO2 POC ABG pO2 ABG pO2 ABG HCO3 ABG Base Excess ABG Hemoglobin VBG pH Oxyhemoglobin Sodium Potassium Chloride Carbon Dioxide BUN Creatinine Glucose POC Glucose 122 H 182 H 114 H Lactic Acid Calcium AST ALT Alkaline Phosphatase CK-MB (CK-2) CK-MB (CK-2) Rel Index Total Protein Albumin TSH Urine WBC (Auto) Salicylates 03/09/17 03/09/17 03/09/17 05:21 05:51 05:51 WBC RBC 3.61 L Hgb 9.5 L Hct 28.3 L MCV 79 L MCH 26 L RDW 17.8 H Plt Count Lymph % (Auto) [place] % (Auto) Eos % (Auto) Seg Neutrophils % Seg Neuts % (Manual) Lymphocytes % (Manual) Seg Neutrophils # Seg Neutrophils # Man Lymphocytes # (Manual) APTT POC ABG pH ABG pH POC ABG pCO2 POC ABG pO2 ABG pO2 ABG HCO3 ABG Base Excess ABG Hemoglobin VBG pH Oxyhemoglobin Sodium 134 L Potassium Chloride 95.5 L Carbon Dioxide BUN 33 H Creatinine 0.5 L Glucose 143 H POC Glucose 153 H Lactic Acid Calcium AST ALT Alkaline Phosphatase CK-MB (CK-2) CK-MB (CK-2) Rel Index Total Protein Albumin TSH Urine WBC (Auto) Salicylates 03/09/17 03/09/17 03/09/17 12:10 18:13 21:00 WBC RBC Hgb Hct MCV MCH RDW Plt Count Lymph % (Auto) [place] % (Auto) Eos % (Auto) Seg Neutrophils % Seg Neuts % (Manual) Lymphocytes % (Manual) Seg Neutrophils # Seg Neutrophils # Man Lymphocytes # (Manual) APTT POC ABG pH ABG pH POC ABG pCO2 POC ABG pO2 ABG pO2 ABG HCO3 ABG Base Excess ABG Hemoglobin VBG pH Oxyhemoglobin Sodium Potassium Chloride Carbon Dioxide BUN Creatinine Glucose POC Glucose 203 H 221 H 198 H Lactic Acid Calcium AST ALT Alkaline Phosphatase CK-MB (CK-2) CK-MB (CK-2) Rel Index Total Protein Albumin TSH Urine WBC (Auto) Salicylates 03/09/17 03/10/17 03/10/17 23:58 05:09 05:09 WBC RBC Hgb 10.3 L Hct 30.5 L MCV 78 L MCH 26 L RDW 17.9 H Plt Count Lymph % (Auto) [place] % (Auto) 10.0 H Eos % (Auto) 6.0 H Seg Neutrophils % Seg Neuts % (Manual) Lymphocytes % (Manual) Seg Neutrophils # Seg Neutrophils # Man Lymphocytes # (Manual) APTT POC ABG pH ABG pH POC ABG pCO2 POC ABG pO2 ABG pO2 ABG HCO3 ABG Base Excess ABG Hemoglobin VBG pH Oxyhemoglobin Sodium 132 L Potassium Chloride 92.2 L Carbon Dioxide BUN 33 H Creatinine 0.5 L Glucose 50 L POC Glucose 167 H Lactic Acid Calcium AST ALT Alkaline Phosphatase CK-MB (CK-2) CK-MB (CK-2) Rel Index Total Protein Albumin TSH Urine WBC (Auto) Salicylates 03/10/17 03/10/17 03/10/17 05:33 05:34 11:48 WBC RBC Hgb Hct MCV MCH RDW Plt Count Lymph % (Auto) [place] % (Auto) Eos % (Auto) Seg Neutrophils % Seg Neuts % (Manual) Lymphocytes % (Manual) Seg Neutrophils # Seg Neutrophils # Man Lymphocytes # (Manual) APTT POC ABG pH ABG pH POC ABG pCO2 POC ABG pO2 ABG pO2 ABG HCO3 ABG Base Excess ABG Hemoglobin VBG pH Oxyhemoglobin Sodium Potassium Chloride Carbon Dioxide BUN Creatinine Glucose POC Glucose 52 L 53 L 148 H Lactic Acid Calcium AST ALT Alkaline Phosphatase CK-MB (CK-2) CK-MB (CK-2) Rel Index Total Protein Albumin TSH Urine WBC (Auto) Salicylates 03/10/17 03/10/17 03/11/17 17:53 23:47 05:18 WBC RBC Hgb Hct MCV MCH RDW Plt Count Lymph % (Auto) [place] % (Auto) Eos % (Auto) Seg Neutrophils % Seg Neuts % (Manual) Lymphocytes % (Manual) Seg Neutrophils # Seg Neutrophils # Man Lymphocytes # (Manual) APTT POC ABG pH ABG pH POC ABG pCO2 POC ABG pO2 ABG pO2 ABG HCO3 ABG Base Excess ABG Hemoglobin VBG pH Oxyhemoglobin Sodium Potassium Chloride Carbon Dioxide BUN Creatinine Glucose POC Glucose 189 H 398 H 126 H Lactic Acid Calcium AST ALT Alkaline Phosphatase CK-MB (CK-2) CK-MB (CK-2) Rel Index Total Protein Albumin TSH Urine WBC (Auto) Salicylates 03/11/17 03/11/17 03/11/17 11:53 17:30 23:10 WBC RBC Hgb Hct MCV MCH RDW Plt Count Lymph % (Auto) [place] % (Auto) Eos % (Auto) Seg Neutrophils % Seg Neuts % (Manual) Lymphocytes % (Manual) Seg Neutrophils # Seg Neutrophils # Man Lymphocytes # (Manual) APTT POC ABG pH ABG pH POC ABG pCO2 POC ABG pO2 ABG pO2 ABG HCO3 ABG Base Excess ABG Hemoglobin VBG pH Oxyhemoglobin Sodium Potassium Chloride Carbon Dioxide BUN Creatinine Glucose POC Glucose 198 H 142 H 244 H Lactic Acid Calcium AST ALT Alkaline Phosphatase CK-MB (CK-2) CK-MB (CK-2) Rel Index Total Protein Albumin TSH Urine WBC (Auto) Salicylates 03/12/17 03/12/17 03/12/17 04:36 11:49 17:23 WBC RBC Hgb Hct MCV MCH RDW Plt Count Lymph % (Auto) [place] % (Auto) Eos % (Auto) Seg Neutrophils % Seg Neuts % (Manual) Lymphocytes % (Manual) Seg Neutrophils # Seg Neutrophils # Man Lymphocytes # (Manual) APTT POC ABG pH ABG pH POC ABG pCO2 POC ABG pO2 ABG pO2 ABG HCO3 ABG Base Excess ABG Hemoglobin VBG pH Oxyhemoglobin Sodium Potassium Chloride Carbon Dioxide BUN Creatinine Glucose POC Glucose 205 H 197 H 209 H Lactic Acid Calcium AST ALT Alkaline Phosphatase CK-MB (CK-2) CK-MB (CK-2) Rel Index Total Protein Albumin TSH Urine WBC (Auto) Salicylates 03/12/17 03/13/17 03/13/17 23:51 05:32 11:43 WBC RBC Hgb Hct MCV MCH RDW Plt Count Lymph % (Auto) [place] % (Auto) Eos % (Auto) Seg Neutrophils % Seg Neuts % (Manual) Lymphocytes % (Manual) Seg Neutrophils # Seg Neutrophils # Man Lymphocytes # (Manual) APTT POC ABG pH ABG pH POC ABG pCO2 POC ABG pO2 ABG pO2 ABG HCO3 ABG Base Excess ABG Hemoglobin VBG pH Oxyhemoglobin Sodium Potassium Chloride Carbon Dioxide BUN Creatinine Glucose POC Glucose 210 H 154 H 164 H Lactic Acid Calcium AST ALT Alkaline Phosphatase CK-MB (CK-2) CK-MB (CK-2) Rel Index Total Protein Albumin TSH Urine WBC (Auto) Salicylates 03/13/17 03/13/17 03/14/17 17:11 23:26 05:42 WBC RBC Hgb Hct MCV MCH RDW Plt Count Lymph % (Auto) [place] % (Auto) Eos % (Auto) Seg Neutrophils % Seg Neuts % (Manual) Lymphocytes % (Manual) Seg Neutrophils # Seg Neutrophils # Man Lymphocytes # (Manual) APTT POC ABG pH ABG pH POC ABG pCO2 POC ABG pO2 ABG pO2 ABG HCO3 ABG Base Excess ABG Hemoglobin VBG pH Oxyhemoglobin Sodium Potassium Chloride Carbon Dioxide BUN Creatinine Glucose POC Glucose 195 H 240 H 230 H Lactic Acid Calcium AST ALT Alkaline Phosphatase CK-MB (CK-2) CK-MB (CK-2) Rel Index Total Protein Albumin TSH Urine WBC (Auto) Salicylates 03/14/17 03/14/17 03/14/17 14:04 17:34 23:42 WBC RBC Hgb Hct MCV MCH RDW Plt Count Lymph % (Auto) [place] % (Auto) Eos % (Auto) Seg Neutrophils % Seg Neuts % (Manual) Lymphocytes % (Manual) Seg Neutrophils # Seg Neutrophils # Man Lymphocytes # (Manual) APTT POC ABG pH ABG pH POC ABG pCO2 POC ABG pO2 ABG pO2 ABG HCO3 ABG Base Excess ABG Hemoglobin VBG pH Oxyhemoglobin Sodium Potassium Chloride Carbon Dioxide BUN Creatinine Glucose POC Glucose 227 H 186 H 225 H Lactic Acid Calcium AST ALT Alkaline Phosphatase CK-MB (CK-2) CK-MB (CK-2) Rel Index Total Protein Albumin TSH Urine WBC (Auto) Salicylates 03/15/17 03/15/17 03/15/17 05:21 17:13 21:37 WBC RBC Hgb Hct MCV MCH RDW Plt Count Lymph % (Auto) [place] % (Auto) Eos % (Auto) Seg Neutrophils % Seg Neuts % (Manual) Lymphocytes % (Manual) Seg Neutrophils # Seg Neutrophils # Man Lymphocytes # (Manual) APTT POC ABG pH ABG pH POC ABG pCO2 POC ABG pO2 ABG pO2 ABG HCO3 ABG Base Excess ABG Hemoglobin VBG pH Oxyhemoglobin Sodium Potassium Chloride Carbon Dioxide BUN Creatinine Glucose POC Glucose 244 H 203 H 216 H Lactic Acid Calcium AST ALT Alkaline Phosphatase CK-MB (CK-2) CK-MB (CK-2) Rel Index Total Protein Albumin TSH Urine WBC (Auto) Salicylates 03/16/17 03/16/17 03/16/17 05:52 18:07 21:54 WBC RBC Hgb Hct MCV MCH RDW Plt Count Lymph % (Auto) [place] % (Auto) Eos % (Auto) Seg Neutrophils % Seg Neuts % (Manual) Lymphocytes % (Manual) Seg Neutrophils # Seg Neutrophils # Man Lymphocytes # (Manual) APTT POC ABG pH ABG pH POC ABG pCO2 POC ABG pO2 ABG pO2 ABG HCO3 ABG Base Excess ABG Hemoglobin VBG pH Oxyhemoglobin Sodium Potassium Chloride Carbon Dioxide BUN Creatinine Glucose POC Glucose 248 H 254 H 244 H Lactic Acid Calcium AST ALT Alkaline Phosphatase CK-MB (CK-2) CK-MB (CK-2) Rel Index Total Protein Albumin TSH Urine WBC (Auto) Salicylates 03/17/17 03/17/17 03/17/17 07:07 07:42 07:43 WBC RBC Hgb 9.7 L Hct 29.1 L MCV 78 L MCH 26 L RDW 17.4 H Plt Count Lymph % (Auto) [place] % (Auto) Eos % (Auto) Seg Neutrophils % Seg Neuts % (Manual) Lymphocytes % (Manual) Seg Neutrophils # Seg Neutrophils # Man Lymphocytes # (Manual) APTT POC ABG pH ABG pH POC ABG pCO2 POC ABG pO2 ABG pO2 ABG HCO3 ABG Base Excess ABG Hemoglobin VBG pH Oxyhemoglobin Sodium Potassium Chloride 96.6 L Carbon Dioxide BUN 30 H Creatinine 0.5 L Glucose 251 H POC Glucose 222 H Lactic Acid Calcium AST ALT Alkaline Phosphatase CK-MB (CK-2) CK-MB (CK-2) Rel Index Total Protein Albumin TSH Urine WBC (Auto) Salicylates 03/17/17 03/17/17 03/18/17 14:08 21:20 14:24 WBC RBC Hgb Hct MCV MCH RDW Plt Count Lymph % (Auto) [place] % (Auto) Eos % (Auto) Seg Neutrophils % Seg Neuts % (Manual) Lymphocytes % (Manual) Seg Neutrophils # Seg Neutrophils # Man Lymphocytes # (Manual) APTT POC ABG pH ABG pH POC ABG pCO2 POC ABG pO2 ABG pO2 ABG HCO3 ABG Base Excess ABG Hemoglobin VBG pH Oxyhemoglobin Sodium Potassium Chloride Carbon Dioxide BUN Creatinine Glucose POC Glucose 281 H 239 H 195 H Lactic Acid Calcium AST ALT Alkaline Phosphatase CK-MB (CK-2) CK-MB (CK-2) Rel Index Total Protein Albumin TSH Urine WBC (Auto) Salicylates 03/18/17 03/19/17 03/19/17 21:37 04:57 14:23 WBC RBC Hgb Hct MCV MCH RDW Plt Count Lymph % (Auto) [place] % (Auto) Eos % (Auto) Seg Neutrophils % Seg Neuts % (Manual) Lymphocytes % (Manual) Seg Neutrophils # Seg Neutrophils # Man Lymphocytes # (Manual) APTT POC ABG pH ABG pH POC ABG pCO2 POC ABG pO2 ABG pO2 ABG HCO3 ABG Base Excess ABG Hemoglobin VBG pH Oxyhemoglobin Sodium Potassium Chloride Carbon Dioxide BUN Creatinine Glucose POC Glucose 227 H 205 H 277 H Lactic Acid Calcium AST ALT Alkaline Phosphatase CK-MB (CK-2) CK-MB (CK-2) Rel Index Total Protein Albumin TSH Urine WBC (Auto) Salicylates 03/19/17 03/19/17 03/20/17 20:31 21:47 04:55 WBC RBC Hgb Hct MCV MCH RDW Plt Count Lymph % (Auto) [place] % (Auto) Eos % (Auto) Seg Neutrophils % Seg Neuts % (Manual) Lymphocytes % (Manual) Seg Neutrophils # Seg Neutrophils # Man Lymphocytes # (Manual) APTT POC ABG pH ABG pH POC ABG pCO2 POC ABG pO2 ABG pO2 ABG HCO3 ABG Base Excess ABG Hemoglobin VBG pH Oxyhemoglobin Sodium Potassium Chloride Carbon Dioxide BUN Creatinine Glucose POC Glucose 256 H 270 H 202 H Lactic Acid Calcium AST ALT Alkaline Phosphatase CK-MB (CK-2) CK-MB (CK-2) Rel Index Total Protein Albumin TSH Urine WBC (Auto) Salicylates 03/20/17 03/20/17 03/21/17 14:09 21:40 05:09 WBC RBC Hgb Hct MCV MCH RDW Plt Count Lymph % (Auto) [place] % (Auto) Eos % (Auto) Seg Neutrophils % Seg Neuts % (Manual) Lymphocytes % (Manual) Seg Neutrophils # Seg Neutrophils # Man Lymphocytes # (Manual) APTT POC ABG pH ABG pH POC ABG pCO2 POC ABG pO2 ABG pO2 ABG HCO3 ABG Base Excess ABG Hemoglobin VBG pH Oxyhemoglobin Sodium Potassium Chloride Carbon Dioxide BUN Creatinine Glucose POC Glucose 200 H 214 H 233 H Lactic Acid Calcium AST ALT Alkaline Phosphatase CK-MB (CK-2) CK-MB (CK-2) Rel Index Total Protein Albumin TSH Urine WBC (Auto) Salicylates 03/21/17 03/21/17 03/22/17 14:06 21:26 05:43 WBC RBC Hgb Hct MCV MCH RDW Plt Count Lymph % (Auto) [place] % (Auto) Eos % (Auto) Seg Neutrophils % Seg Neuts % (Manual) Lymphocytes % (Manual) Seg Neutrophils # Seg Neutrophils # Man Lymphocytes # (Manual) APTT POC ABG pH ABG pH POC ABG pCO2 POC ABG pO2 ABG pO2 ABG HCO3 ABG Base Excess ABG Hemoglobin VBG pH Oxyhemoglobin Sodium Potassium Chloride Carbon Dioxide BUN Creatinine Glucose POC Glucose 250 H 155 H 251 H Lactic Acid Calcium AST ALT Alkaline Phosphatase CK-MB (CK-2) CK-MB (CK-2) Rel Index Total Protein Albumin TSH Urine WBC (Auto) Salicylates 03/22/17 03/22/17 03/23/17 13:46 21:16 00:23 WBC RBC Hgb Hct MCV MCH RDW Plt Count Lymph % (Auto) [place] % (Auto) Eos % (Auto) Seg Neutrophils % Seg Neuts % (Manual) Lymphocytes % (Manual) Seg Neutrophils # Seg Neutrophils # Man Lymphocytes # (Manual) APTT POC ABG pH ABG pH POC ABG pCO2 POC ABG pO2 ABG pO2 ABG HCO3 ABG Base Excess ABG Hemoglobin VBG pH Oxyhemoglobin Sodium Potassium Chloride Carbon Dioxide BUN Creatinine Glucose POC Glucose 269 H 197 H 126 H Lactic Acid Calcium AST ALT Alkaline Phosphatase CK-MB (CK-2) CK-MB (CK-2) Rel Index Total Protein Albumin TSH Urine WBC (Auto) Salicylates 03/23/17 03/23/17 03/23/17 05:39 14:06 21:39 WBC RBC Hgb Hct MCV MCH RDW Plt Count Lymph % (Auto) [place] % (Auto) Eos % (Auto) Seg Neutrophils % Seg Neuts % (Manual) Lymphocytes % (Manual) Seg Neutrophils # Seg Neutrophils # Man Lymphocytes # (Manual) APTT POC ABG pH ABG pH POC ABG pCO2 POC ABG pO2 ABG pO2 ABG HCO3 ABG Base Excess ABG Hemoglobin VBG pH Oxyhemoglobin Sodium Potassium Chloride Carbon Dioxide BUN Creatinine Glucose POC Glucose 234 H 241 H 248 H Lactic Acid Calcium AST ALT Alkaline Phosphatase CK-MB (CK-2) CK-MB (CK-2) Rel Index Total Protein Albumin TSH Urine WBC (Auto) Salicylates 03/24/17 03/24/17 03/25/17 05:06 21:46 05:38 WBC RBC Hgb Hct MCV MCH RDW Plt Count Lymph % (Auto) [place] % (Auto) Eos % (Auto) Seg Neutrophils % Seg Neuts % (Manual) Lymphocytes % (Manual) Seg Neutrophils # Seg Neutrophils # Man Lymphocytes # (Manual) APTT POC ABG pH ABG pH POC ABG pCO2 POC ABG pO2 ABG pO2 ABG HCO3 ABG Base Excess ABG Hemoglobin VBG pH Oxyhemoglobin Sodium Potassium Chloride Carbon Dioxide BUN Creatinine Glucose POC Glucose 232 H 276 H 242 H Lactic Acid Calcium AST ALT Alkaline Phosphatase CK-MB (CK-2) CK-MB (CK-2) Rel Index Total Protein Albumin TSH Urine WBC (Auto) Salicylates 03/25/17 03/25/17 03/26/17 14:30 23:14 13:53 WBC RBC Hgb Hct MCV MCH RDW Plt Count Lymph % (Auto) [place] % (Auto) Eos % (Auto) Seg Neutrophils % Seg Neuts % (Manual) Lymphocytes % (Manual) Seg Neutrophils # Seg Neutrophils # Man Lymphocytes # (Manual) APTT POC ABG pH ABG pH POC ABG pCO2 POC ABG pO2 ABG pO2 ABG HCO3 ABG Base Excess ABG Hemoglobin VBG pH Oxyhemoglobin Sodium Potassium Chloride Carbon Dioxide BUN Creatinine Glucose POC Glucose 246 H 208 H 195 H Lactic Acid Calcium AST ALT Alkaline Phosphatase CK-MB (CK-2) CK-MB (CK-2) Rel Index Total Protein Albumin TSH Urine WBC (Auto) Salicylates 03/26/17 03/27/17 03/27/17 21:58 05:18 14:57 WBC RBC Hgb Hct MCV MCH RDW Plt Count Lymph % (Auto) [place] % (Auto) Eos % (Auto) Seg Neutrophils % Seg Neuts % (Manual) Lymphocytes % (Manual) Seg Neutrophils # Seg Neutrophils # Man Lymphocytes # (Manual) APTT POC ABG pH ABG pH POC ABG pCO2 POC ABG pO2 ABG pO2 ABG HCO3 ABG Base Excess ABG Hemoglobin VBG pH Oxyhemoglobin Sodium Potassium Chloride Carbon Dioxide BUN Creatinine Glucose POC Glucose 241 H 199 H 269 H Lactic Acid Calcium AST ALT Alkaline Phosphatase CK-MB (CK-2) CK-MB (CK-2) Rel Index Total Protein Albumin TSH Urine WBC (Auto) Salicylates 03/27/17 03/28/17 03/28/17 21:33 13:52 21:29 WBC RBC Hgb Hct MCV MCH RDW Plt Count Lymph % (Auto) [place] % (Auto) Eos % (Auto) Seg Neutrophils % Seg Neuts % (Manual) Lymphocytes % (Manual) Seg Neutrophils # Seg Neutrophils # Man Lymphocytes # (Manual) APTT POC ABG pH ABG pH POC ABG pCO2 POC ABG pO2 ABG pO2 ABG HCO3 ABG Base Excess ABG Hemoglobin VBG pH Oxyhemoglobin Sodium Potassium Chloride Carbon Dioxide BUN Creatinine Glucose POC Glucose 214 H 243 H 286 H Lactic Acid Calcium AST ALT Alkaline Phosphatase CK-MB (CK-2) CK-MB (CK-2) Rel Index Total Protein Albumin TSH Urine WBC (Auto) Salicylates 03/29/17 03/29/17 03/29/17 04:32 04:32 13:58 WBC RBC Hgb 10.6 L Hct 32.9 L MCV 78 L MCH 25 L RDW 17.6 H Plt Count Lymph % (Auto) 38.0 H [place] % (Auto) 9.7 H Eos % (Auto) Seg Neutrophils % Seg Neuts % (Manual) Lymphocytes % (Manual) Seg Neutrophils # Seg Neutrophils # Man Lymphocytes # (Manual) APTT POC ABG pH ABG pH POC ABG pCO2 POC ABG pO2 ABG pO2 ABG HCO3 ABG Base Excess ABG Hemoglobin VBG pH Oxyhemoglobin Sodium 132 L Potassium Chloride 94.0 L Carbon Dioxide BUN 28 H Creatinine 0.5 L Glucose 236 H POC Glucose 171 H Lactic Acid Calcium AST ALT 71 H Alkaline Phosphatase 391 H CK-MB (CK-2) CK-MB (CK-2) Rel Index Total Protein 8.3 H Albumin 2.9 L TSH Urine WBC (Auto) Salicylates 03/29/17 03/30/17 03/30/17 20:59 06:07 11:52 WBC RBC Hgb Hct MCV MCH RDW Plt Count Lymph % (Auto) [place] % (Auto) Eos % (Auto) Seg Neutrophils % Seg Neuts % (Manual) Lymphocytes % (Manual) Seg Neutrophils # Seg Neutrophils # Man Lymphocytes # (Manual) APTT POC ABG pH ABG pH POC ABG pCO2 POC ABG pO2 ABG pO2 ABG HCO3 ABG Base Excess ABG Hemoglobin VBG pH Oxyhemoglobin Sodium Potassium Chloride Carbon Dioxide BUN Creatinine Glucose POC Glucose 215 H 259 H 197 H Lactic Acid Calcium AST ALT Alkaline Phosphatase CK-MB (CK-2) CK-MB (CK-2) Rel Index Total Protein Albumin TSH Urine WBC (Auto) Salicylates 03/30/17 03/31/17 03/31/17 21:34 05:42 14:34 WBC RBC Hgb Hct MCV MCH RDW Plt Count Lymph % (Auto) [place] % (Auto) Eos % (Auto) Seg Neutrophils % Seg Neuts % (Manual) Lymphocytes % (Manual) Seg Neutrophils # Seg Neutrophils # Man Lymphocytes # (Manual) APTT POC ABG pH ABG pH POC ABG pCO2 POC ABG pO2 ABG pO2 ABG HCO3 ABG Base Excess ABG Hemoglobin VBG pH Oxyhemoglobin Sodium Potassium Chloride Carbon Dioxide BUN Creatinine Glucose POC Glucose 207 H 184 H 213 H Lactic Acid Calcium AST ALT Alkaline Phosphatase CK-MB (CK-2) CK-MB (CK-2) Rel Index Total Protein Albumin TSH Urine WBC (Auto) Salicylates 03/31/17 04/01/17 04/01/17 21:32 05:53 13:48 WBC RBC Hgb Hct MCV MCH RDW Plt Count Lymph % (Auto) [place] % (Auto) Eos % (Auto) Seg Neutrophils % Seg Neuts % (Manual) Lymphocytes % (Manual) Seg Neutrophils # Seg Neutrophils # Man Lymphocytes # (Manual) APTT POC ABG pH ABG pH POC ABG pCO2 POC ABG pO2 ABG pO2 ABG HCO3 ABG Base Excess ABG Hemoglobin VBG pH Oxyhemoglobin Sodium Potassium Chloride Carbon Dioxide BUN Creatinine Glucose POC Glucose 249 H 225 H 256 H Lactic Acid Calcium AST ALT Alkaline Phosphatase CK-MB (CK-2) CK-MB (CK-2) Rel Index Total Protein Albumin TSH Urine WBC (Auto) Salicylates 04/01/17 04/02/17 04/02/17 21:34 05:32 14:05 WBC RBC Hgb Hct MCV MCH RDW Plt Count Lymph % (Auto) [place] % (Auto) Eos % (Auto) Seg Neutrophils % Seg Neuts % (Manual) Lymphocytes % (Manual) Seg Neutrophils # Seg Neutrophils # Man Lymphocytes # (Manual) APTT POC ABG pH ABG pH POC ABG pCO2 POC ABG pO2 ABG pO2 ABG HCO3 ABG Base Excess ABG Hemoglobin VBG pH Oxyhemoglobin Sodium Potassium Chloride Carbon Dioxide BUN Creatinine Glucose POC Glucose 292 H 220 H 187 H Lactic Acid Calcium AST ALT Alkaline Phosphatase CK-MB (CK-2) CK-MB (CK-2) Rel Index Total Protein Albumin TSH Urine WBC (Auto) Salicylates 04/02/17 04/03/17 04/03/17 21:57 04:49 14:12 WBC RBC Hgb Hct MCV MCH RDW Plt Count Lymph % (Auto) [place] % (Auto) Eos % (Auto) Seg Neutrophils % Seg Neuts % (Manual) Lymphocytes % (Manual) Seg Neutrophils # Seg Neutrophils # Man Lymphocytes # (Manual) APTT POC ABG pH ABG pH POC ABG pCO2 POC ABG pO2 ABG pO2 ABG HCO3 ABG Base Excess ABG Hemoglobin VBG pH Oxyhemoglobin Sodium Potassium Chloride Carbon Dioxide BUN Creatinine Glucose POC Glucose 285 H 256 H 197 H Lactic Acid Calcium AST ALT Alkaline Phosphatase CK-MB (CK-2) CK-MB (CK-2) Rel Index Total Protein Albumin TSH Urine WBC (Auto) Salicylates 04/03/17 04/04/17 04/04/17 21:11 05:20 13:18 WBC RBC Hgb Hct MCV MCH RDW Plt Count Lymph % (Auto) [place] % (Auto) Eos % (Auto) Seg Neutrophils % Seg Neuts % (Manual) Lymphocytes % (Manual) Seg Neutrophils # Seg Neutrophils # Man Lymphocytes # (Manual) APTT POC ABG pH ABG pH POC ABG pCO2 POC ABG pO2 ABG pO2 ABG HCO3 ABG Base Excess ABG Hemoglobin VBG pH Oxyhemoglobin Sodium Potassium Chloride Carbon Dioxide BUN Creatinine Glucose POC Glucose 166 H 228 H 252 H Lactic Acid Calcium AST ALT Alkaline Phosphatase CK-MB (CK-2) CK-MB (CK-2) Rel Index Total Protein Albumin TSH Urine WBC (Auto) Salicylates 04/04/17 04/05/17 04/05/17 21:51 06:14 09:54 WBC RBC Hgb Hct MCV MCH RDW Plt Count Lymph % (Auto) [place] % (Auto) Eos % (Auto) Seg Neutrophils % Seg Neuts % (Manual) Lymphocytes % (Manual) Seg Neutrophils # Seg Neutrophils # Man Lymphocytes # (Manual) APTT POC ABG pH ABG pH POC ABG pCO2 POC ABG pO2 ABG pO2 ABG HCO3 ABG Base Excess ABG Hemoglobin VBG pH Oxyhemoglobin Sodium Potassium Chloride Carbon Dioxide BUN Creatinine Glucose POC Glucose 252 H 152 H 181 H Lactic Acid Calcium AST ALT Alkaline Phosphatase CK-MB (CK-2) CK-MB (CK-2) Rel Index Total Protein Albumin TSH Urine WBC (Auto) Salicylates 04/05/17 04/05/17 04/05/17 14:49 17:34 21:38 WBC RBC Hgb Hct MCV MCH RDW Plt Count Lymph % (Auto) [place] % (Auto) Eos % (Auto) Seg Neutrophils % Seg Neuts % (Manual) Lymphocytes % (Manual) Seg Neutrophils # Seg Neutrophils # Man Lymphocytes # (Manual) APTT POC ABG pH ABG pH POC ABG pCO2 POC ABG pO2 ABG pO2 ABG HCO3 ABG Base Excess ABG Hemoglobin VBG pH Oxyhemoglobin Sodium Potassium Chloride Carbon Dioxide BUN Creatinine Glucose POC Glucose 219 H 268 H 278 H Lactic Acid Calcium AST ALT Alkaline Phosphatase CK-MB (CK-2) CK-MB (CK-2) Rel Index Total Protein Albumin TSH Urine WBC (Auto) Salicylates 04/06/17 04/06/17 04/07/17 15:04 22:14 05:09 WBC RBC Hgb Hct MCV MCH RDW Plt Count Lymph % (Auto) [place] % (Auto) Eos % (Auto) Seg Neutrophils % Seg Neuts % (Manual) Lymphocytes % (Manual) Seg Neutrophils # Seg Neutrophils # Man Lymphocytes # (Manual) APTT POC ABG pH ABG pH POC ABG pCO2 POC ABG pO2 ABG pO2 ABG HCO3 ABG Base Excess ABG Hemoglobin VBG pH Oxyhemoglobin Sodium Potassium Chloride Carbon Dioxide BUN Creatinine Glucose POC Glucose 285 H 106 H 334 H Lactic Acid Calcium AST ALT Alkaline Phosphatase CK-MB (CK-2) CK-MB (CK-2) Rel Index Total Protein Albumin TSH Urine WBC (Auto) Salicylates 04/07/17 04/07/17 04/08/17 14:45 21:48 05:28 WBC RBC Hgb Hct MCV MCH RDW Plt Count Lymph % (Auto) [place] % (Auto) Eos % (Auto) Seg Neutrophils % Seg Neuts % (Manual) Lymphocytes % (Manual) Seg Neutrophils # Seg Neutrophils # Man Lymphocytes # (Manual) APTT POC ABG pH ABG pH POC ABG pCO2 POC ABG pO2 ABG pO2 ABG HCO3 ABG Base Excess ABG Hemoglobin VBG pH Oxyhemoglobin Sodium Potassium Chloride Carbon Dioxide BUN Creatinine Glucose POC Glucose 173 H 304 H 314 H Lactic Acid Calcium AST ALT Alkaline Phosphatase CK-MB (CK-2) CK-MB (CK-2) Rel Index Total Protein Albumin TSH Urine WBC (Auto) Salicylates 04/08/17 04/08/17 04/08/17 15:57 16:17 22:21 WBC RBC Hgb Hct MCV MCH RDW Plt Count Lymph % (Auto) [place] % (Auto) Eos % (Auto) Seg Neutrophils % Seg Neuts % (Manual) Lymphocytes % (Manual) Seg Neutrophils # Seg Neutrophils # Man Lymphocytes # (Manual) APTT POC ABG pH ABG pH POC ABG pCO2 POC ABG pO2 ABG pO2 ABG HCO3 ABG Base Excess ABG Hemoglobin VBG pH Oxyhemoglobin Sodium Potassium Chloride Carbon Dioxide BUN Creatinine Glucose POC Glucose 356 H 337 H 323 H Lactic Acid Calcium AST ALT Alkaline Phosphatase CK-MB (CK-2) CK-MB (CK-2) Rel Index Total Protein Albumin TSH Urine WBC (Auto) Salicylates 04/09/17 04/09/17 04/09/17 06:19 15:30 21:52 WBC RBC Hgb Hct MCV MCH RDW Plt Count Lymph % (Auto) [place] % (Auto) Eos % (Auto) Seg Neutrophils % Seg Neuts % (Manual) Lymphocytes % (Manual) Seg Neutrophils # Seg Neutrophils # Man Lymphocytes # (Manual) APTT POC ABG pH ABG pH POC ABG pCO2 POC ABG pO2 ABG pO2 ABG HCO3 ABG Base Excess ABG Hemoglobin VBG pH Oxyhemoglobin Sodium Potassium Chloride Carbon Dioxide BUN Creatinine Glucose POC Glucose 340 H 332 H 341 H Lactic Acid Calcium AST ALT Alkaline Phosphatase CK-MB (CK-2) CK-MB (CK-2) Rel Index Total Protein Albumin TSH Urine WBC (Auto) Salicylates 04/10/17 04/10/17 04/10/17 01:53 05:33 17:40 WBC RBC Hgb Hct MCV MCH RDW Plt Count Lymph % (Auto) [place] % (Auto) Eos % (Auto) Seg Neutrophils % Seg Neuts % (Manual) Lymphocytes % (Manual) Seg Neutrophils # Seg Neutrophils # Man Lymphocytes # (Manual) APTT POC ABG pH ABG pH POC ABG pCO2 POC ABG pO2 ABG pO2 ABG HCO3 ABG Base Excess ABG Hemoglobin VBG pH Oxyhemoglobin Sodium Potassium Chloride Carbon Dioxide BUN Creatinine Glucose POC Glucose 261 H 277 H 304 H Lactic Acid Calcium AST ALT Alkaline Phosphatase CK-MB (CK-2) CK-MB (CK-2) Rel Index Total Protein Albumin TSH Urine WBC (Auto) Salicylates 04/10/17 04/11/17 04/11/17 21:29 05:28 14:02 WBC RBC Hgb Hct MCV MCH RDW Plt Count Lymph % (Auto) [place] % (Auto) Eos % (Auto) Seg Neutrophils % Seg Neuts % (Manual) Lymphocytes % (Manual) Seg Neutrophils # Seg Neutrophils # Man Lymphocytes # (Manual) APTT POC ABG pH ABG pH POC ABG pCO2 POC ABG pO2 ABG pO2 ABG HCO3 ABG Base Excess ABG Hemoglobin VBG pH Oxyhemoglobin Sodium Potassium Chloride Carbon Dioxide BUN Creatinine Glucose POC Glucose 361 H 204 H 236 H Lactic Acid Calcium AST ALT Alkaline Phosphatase CK-MB (CK-2) CK-MB (CK-2) Rel Index Total Protein Albumin TSH Urine WBC (Auto) Salicylates 04/11/17 04/12/17 04/12/17 21:43 05:00 11:53 WBC RBC Hgb Hct MCV MCH RDW Plt Count Lymph % (Auto) [place] % (Auto) Eos % (Auto) Seg Neutrophils % Seg Neuts % (Manual) Lymphocytes % (Manual) Seg Neutrophils # Seg Neutrophils # Man Lymphocytes # (Manual) APTT POC ABG pH ABG pH POC ABG pCO2 POC ABG pO2 ABG pO2 ABG HCO3 ABG Base Excess ABG Hemoglobin VBG pH Oxyhemoglobin Sodium Potassium Chloride Carbon Dioxide BUN Creatinine Glucose POC Glucose 287 H 294 H 265 H Lactic Acid Calcium AST ALT Alkaline Phosphatase CK-MB (CK-2) CK-MB (CK-2) Rel Index Total Protein Albumin TSH Urine WBC (Auto) Salicylates 04/12/17 04/12/17 04/13/17 21:21 23:44 06:05 WBC RBC Hgb Hct MCV MCH RDW Plt Count Lymph % (Auto) [place] % (Auto) Eos % (Auto) Seg Neutrophils % Seg Neuts % (Manual) Lymphocytes % (Manual) Seg Neutrophils # Seg Neutrophils # Man Lymphocytes # (Manual) APTT POC ABG pH ABG pH POC ABG pCO2 POC ABG pO2 ABG pO2 ABG HCO3 ABG Base Excess ABG Hemoglobin VBG pH Oxyhemoglobin Sodium Potassium Chloride Carbon Dioxide BUN Creatinine Glucose POC Glucose 289 H 348 H 326 H Lactic Acid Calcium AST ALT Alkaline Phosphatase CK-MB (CK-2) CK-MB (CK-2) Rel Index Total Protein Albumin TSH Urine WBC (Auto) Salicylates 04/13/17 04/13/17 04/14/17 13:54 21:15 05:49 WBC RBC Hgb Hct MCV MCH RDW Plt Count Lymph % (Auto) [place] % (Auto) Eos % (Auto) Seg Neutrophils % Seg Neuts % (Manual) Lymphocytes % (Manual) Seg Neutrophils # Seg Neutrophils # Man Lymphocytes # (Manual) APTT POC ABG pH ABG pH POC ABG pCO2 POC ABG pO2 ABG pO2 ABG HCO3 ABG Base Excess ABG Hemoglobin VBG pH Oxyhemoglobin Sodium Potassium Chloride Carbon Dioxide BUN Creatinine Glucose POC Glucose 326 H 263 H 319 H Lactic Acid Calcium AST ALT Alkaline Phosphatase CK-MB (CK-2) CK-MB (CK-2) Rel Index Total Protein Albumin TSH Urine WBC (Auto) Salicylates 04/14/17 04/14/17 04/15/17 13:26 23:13 14:24 WBC RBC Hgb Hct MCV MCH RDW Plt Count Lymph % (Auto) [place] % (Auto) Eos % (Auto) Seg Neutrophils % Seg Neuts % (Manual) Lymphocytes % (Manual) Seg Neutrophils # Seg Neutrophils # Man Lymphocytes # (Manual) APTT POC ABG pH ABG pH POC ABG pCO2 POC ABG pO2 ABG pO2 ABG HCO3 ABG Base Excess ABG Hemoglobin VBG pH Oxyhemoglobin Sodium Potassium Chloride Carbon Dioxide BUN Creatinine Glucose POC Glucose 207 H 365 H 308 H Lactic Acid Calcium AST ALT Alkaline Phosphatase CK-MB (CK-2) CK-MB (CK-2) Rel Index Total Protein Albumin TSH Urine WBC (Auto) Salicylates 04/15/17 04/15/17 04/15/17 21:00 22:18 23:12 WBC RBC Hgb Hct MCV MCH RDW Plt Count Lymph % (Auto) [place] % (Auto) Eos % (Auto) Seg Neutrophils % Seg Neuts % (Manual) Lymphocytes % (Manual) Seg Neutrophils # Seg Neutrophils # Man Lymphocytes # (Manual) APTT POC ABG pH ABG pH POC ABG pCO2 POC ABG pO2 ABG pO2 ABG HCO3 ABG Base Excess ABG Hemoglobin VBG pH Oxyhemoglobin Sodium Potassium Chloride Carbon Dioxide BUN Creatinine Glucose POC Glucose 407 H 287 H 325 H Lactic Acid Calcium AST ALT Alkaline Phosphatase CK-MB (CK-2) CK-MB (CK-2) Rel Index Total Protein Albumin TSH Urine WBC (Auto) Salicylates 04/16/17 04/16/17 04/16/17 05:30 10:07 14:26 WBC RBC Hgb Hct MCV MCH RDW Plt Count Lymph % (Auto) [place] % (Auto) Eos % (Auto) Seg Neutrophils % Seg Neuts % (Manual) Lymphocytes % (Manual) Seg Neutrophils # Seg Neutrophils # Man Lymphocytes # (Manual) APTT POC ABG pH ABG pH POC ABG pCO2 POC ABG pO2 ABG pO2 ABG HCO3 ABG Base Excess ABG Hemoglobin VBG pH Oxyhemoglobin Sodium Potassium Chloride Carbon Dioxide BUN Creatinine Glucose POC Glucose 304 H 217 H 344 H Lactic Acid Calcium AST ALT Alkaline Phosphatase CK-MB (CK-2) CK-MB (CK-2) Rel Index Total Protein Albumin TSH Urine WBC (Auto) Salicylates 04/16/17 04/17/17 21:25 05:12 WBC RBC Hgb Hct MCV MCH RDW Plt Count Lymph % (Auto) [place] % (Auto) Eos % (Auto) Seg Neutrophils % Seg Neuts % (Manual) Lymphocytes % (Manual) Seg Neutrophils # Seg Neutrophils # Man Lymphocytes # (Manual) APTT POC ABG pH ABG pH POC ABG pCO2 POC ABG pO2 ABG pO2 ABG HCO3 ABG Base Excess ABG Hemoglobin VBG pH Oxyhemoglobin Sodium Potassium Chloride Carbon Dioxide BUN Creatinine Glucose POC Glucose 305 H 233 H Lactic Acid Calcium AST ALT Alkaline Phosphatase CK-MB (CK-2) CK-MB (CK-2) Rel Index Total Protein Albumin TSH Urine WBC (Auto) Salicylates
[2017-04-18] MEDS: SYNTHROID PO SCH (07:38)
[2017-04-18] MEDS: HumuLIN R SUB-Q SCH ×3 (07:39→22:13)
[2017-04-18] MEDS: PEPCID PO SCH ×2 (13:18→22:07)
[2017-04-18] MEDS: HEPARIN SUB-Q SCH ×2 (13:18→22:06)
[2017-04-18] MEDS: LEVEMIR (NF) SUB-Q SCH (13:19)
[2017-04-19] MEDS: SYNTHROID PO SCH (05:45)
[2017-04-19] MEDS: HumuLIN R SUB-Q SCH ×3 (05:45→22:08)
[2017-04-19] MEDS: LEVEMIR (NF) SUB-Q SCH (10:46)
[2017-04-19] MEDS: HEPARIN SUB-Q SCH ×2 (10:46→22:08)
[2017-04-19] MEDS: PEPCID PO SCH ×2 (10:47→22:08)
[2017-04-20] MEDS: SYNTHROID PO SCH (05:53)
--- NOTE | 2017-04-20 08:41 | Progress Note ---
Assessment and Plan acute respiratory failure secondary to metabolic event, prolonged vent support Hypoglycemia/hypothermia -> suspect due to too much insulin Hypothyroidism; doubt myxedema coma with normal free T4 UTI/SIRS Metabolic encephalopathy. Residual vegetative state Rec: morning SBT qd GI/DVT PPx/TFs No changes, per chart/notes; ethics note 01/18/17 recommended AND and "hospice" ; trying to get guardianship to sign necessary orders for this (however, I was told they are not willing to sign for withdrawal of ventilator); further care felt to be futile and would only prolong potential suffering without affecting ultimate outcome Comfort care, no escalation of care. Poor prognosis,unchanged status Unable to locate family. Subjective Date of service: 04/20/17 Principal diagnosis: Acute respiratory failure,encephalopathy Interval history: No change ,intubated. Objective Vital Signs - 12hr 04/19/17 04/19/17 04/19/17 21:00 22:00 22:01 Temperature Pulse Rate 74 73 Pulse Rate [ 74 From Monitor] Respiratory 16 13 Rate Blood Pressure 107/68 O2 Sat by Pulse 100 100 Oximetry 04/19/17 04/20/17 04/20/17 23:31 00:00 02:01 Temperature Pulse Rate 70 70 73 Pulse Rate [ From Monitor] Respiratory 15 17 Rate Blood Pressure 107/68 110/71 110/71 O2 Sat by Pulse 100 100 Oximetry 04/20/17 04/20/17 04/20/17 03:00 04:00 04:31 Temperature 99.2 F Pulse Rate 79 77 Pulse Rate [ From Monitor] Respiratory 14 Rate Blood Pressure 112/71 110/71 O2 Sat by Pulse 98 98 Oximetry 04/20/17 06:01 Temperature Pulse Rate 79 Pulse Rate [ From Monitor] Respiratory 14 Rate Blood Pressure 112/71 O2 Sat by Pulse 98 Oximetry Constitutional: no acute distress, comatose Eyes: non-icteric ENT: oropharynx moist, other (ETT in position) Neck: supple, no JVD Effort: normal Ascultation: Bilateral: clear, diminished breath sounds Cardiovascular: regular rate and rhythm (no mrg) Gastrointestinal: normoactive bowel sounds, soft, non-tender, non-distended Integumentary: normal Extremities: no cyanosis, no edema, pink and warm Neurologic: pupils equal and round, other (minimal responsive,no posturing, ) Psychiatric: other (unable to obtain) CBC and BMP: 03/29/17 04:32 03/29/17 04:32 ABG, PT/INR, D-dimer: ABG POC ABG pH 7.442 (7.35-7.45) 01/31/17 18:55 ABG pH 7.420 pH Units (7.350-7.450) 01/17/17 04:35 POC ABG pCO2 32.8 (35-45) L 01/31/17 18:55 ABG pCO2 34.5 mm Hg 01/17/17 04:35 POC ABG pO2 82 (80-105) 01/31/17 18:55 ABG pO2 160.3 mm Hg (80.0-90.0) H 01/17/17 04:35 POC ABG HCO3 22.4 01/31/17 18:55 POC ABG Total CO2 23 01/31/17 18:55 POC ABG O2 Sat 97 01/31/17 18:55 ABG O2 Saturation 99.0 % (95.0-99.0) 01/17/17 04:35 PT/INR, D-dimer PT 14.1 Sec. (12.2-14.9) 01/17/17 04:10 INR 1.04 (0.87-1.13) 01/17/17 04:10 Abnormal lab findings: Abnormal Labs 01/09/17 01/09/17 01/09/17 10:16 10:16 10:16 WBC RBC Hgb 9.7 L Hct 28.4 L MCV 76 L MCH 26 L RDW 17.2 H Plt Count 448 H Lymph % (Auto) [place] % (Auto) Eos % (Auto) Seg Neutrophils % 79.5 H Seg Neuts % (Manual) Lymphocytes % (Manual) Seg Neutrophils # Seg Neutrophils # Man Lymphocytes # (Manual) APTT 39.6 H POC ABG pH ABG pH POC ABG pCO2 POC ABG pO2 ABG pO2 ABG HCO3 ABG Base Excess ABG Hemoglobin VBG pH Oxyhemoglobin Sodium 132 L Potassium Chloride 96.7 L Carbon Dioxide 21 L BUN 34 H Creatinine Glucose POC Glucose Lactic Acid Calcium 8.3 L AST ALT Alkaline Phosphatase 151 H CK-MB (CK-2) 7.1 H CK-MB (CK-2) Rel Index 5.2 H Total Protein Albumin 3.3 L TSH Urine WBC (Auto) Salicylates 01/09/17 01/09/17 01/09/17 10:16 10:16 10:16 WBC RBC Hgb Hct MCV MCH RDW Plt Count Lymph % (Auto) [place] % (Auto) Eos % (Auto) Seg Neutrophils % Seg Neuts % (Manual) Lymphocytes % (Manual) Seg Neutrophils # Seg Neutrophils # Man Lymphocytes # (Manual) APTT POC ABG pH ABG pH POC ABG pCO2 POC ABG pO2 ABG pO2 ABG HCO3 ABG Base Excess ABG Hemoglobin VBG pH 7.284 L Oxyhemoglobin Sodium Potassium Chloride Carbon Dioxide BUN Creatinine Glucose POC Glucose Lactic Acid Calcium AST ALT Alkaline Phosphatase CK-MB (CK-2) CK-MB (CK-2) Rel Index Total Protein Albumin TSH 52.800 H Urine WBC (Auto) Salicylates < 0.3 L 01/09/17 01/09/17 01/09/17 10:23 11:14 12:49 WBC RBC Hgb Hct MCV MCH RDW Plt Count Lymph % (Auto) [place] % (Auto) Eos % (Auto) Seg Neutrophils % Seg Neuts % (Manual) Lymphocytes % (Manual) Seg Neutrophils # Seg Neutrophils # Man Lymphocytes # (Manual) APTT POC ABG pH ABG pH POC ABG pCO2 POC ABG pO2 643 H ABG pO2 ABG HCO3 ABG Base Excess ABG Hemoglobin VBG pH Oxyhemoglobin Sodium Potassium Chloride Carbon Dioxide BUN Creatinine Glucose POC Glucose < 40 L Lactic Acid Calcium AST ALT Alkaline Phosphatase CK-MB (CK-2) CK-MB (CK-2) Rel Index Total Protein Albumin TSH Urine WBC (Auto) 61.0 H Salicylates 01/09/17 01/09/17 01/09/17 13:13 14:21 15:09 WBC RBC Hgb Hct MCV MCH RDW Plt Count Lymph % (Auto) [place] % (Auto) Eos % (Auto) Seg Neutrophils % Seg Neuts % (Manual) Lymphocytes % (Manual) Seg Neutrophils # Seg Neutrophils # Man Lymphocytes # (Manual) APTT POC ABG pH ABG pH POC ABG pCO2 POC ABG pO2 ABG pO2 ABG HCO3 ABG Base Excess ABG Hemoglobin VBG pH Oxyhemoglobin Sodium Potassium Chloride Carbon Dioxide BUN Creatinine Glucose POC Glucose 128 H 65 L 120 H Lactic Acid Calcium AST ALT Alkaline Phosphatase CK-MB (CK-2) CK-MB (CK-2) Rel Index Total Protein Albumin TSH Urine WBC (Auto) Salicylates 01/09/17 01/09/17 01/10/17 16:28 17:14 04:30 WBC 24.1 H RBC 3.38 L Hgb 8.5 L Hct 26.0 L MCV 77 L MCH 25 L RDW 17.9 H Plt Count 474 H Lymph % (Auto) [place] % (Auto) Eos % (Auto) Seg Neutrophils % Seg Neuts % (Manual) 88.0 H Lymphocytes % (Manual) 4.0 L Seg Neutrophils # Seg Neutrophils # Man 21.2 H Lymphocytes # (Manual) 1.0 L APTT POC ABG pH ABG pH POC ABG pCO2 POC ABG pO2 ABG pO2 ABG HCO3 ABG Base Excess ABG Hemoglobin VBG pH Oxyhemoglobin Sodium Potassium Chloride Carbon Dioxide BUN Creatinine Glucose POC Glucose 44 L 112 H Lactic Acid Calcium AST ALT Alkaline Phosphatase CK-MB (CK-2) CK-MB (CK-2) Rel Index Total Protein Albumin TSH Urine WBC (Auto) Salicylates 01/10/17 01/10/17 01/10/17 04:30 05:41 05:45 WBC RBC Hgb Hct MCV MCH RDW Plt Count Lymph % (Auto) [place] % (Auto) Eos % (Auto) Seg Neutrophils % Seg Neuts % (Manual) Lymphocytes % (Manual) Seg Neutrophils # Seg Neutrophils # Man Lymphocytes # (Manual) APTT POC ABG pH ABG pH POC ABG pCO2 26.6 L POC ABG pO2 207 H ABG pO2 ABG HCO3 ABG Base Excess ABG Hemoglobin VBG pH Oxyhemoglobin Sodium Potassium Chloride Carbon Dioxide 17 L BUN 27 H Creatinine Glucose POC Glucose 68 L Lactic Acid Calcium 7.5 L AST ALT Alkaline Phosphatase CK-MB (CK-2) CK-MB (CK-2) Rel Index Total Protein Albumin TSH Urine WBC (Auto) Salicylates 01/10/17 01/10/17 01/10/17 07:47 10:50 13:41 WBC RBC Hgb Hct MCV MCH RDW Plt Count Lymph % (Auto) [place] % (Auto) Eos % (Auto) Seg Neutrophils % Seg Neuts % (Manual) Lymphocytes % (Manual) Seg Neutrophils # Seg Neutrophils # Man Lymphocytes # (Manual) APTT POC ABG pH ABG pH POC ABG pCO2 POC ABG pO2 ABG pO2 ABG HCO3 ABG Base Excess ABG Hemoglobin VBG pH Oxyhemoglobin Sodium Potassium Chloride Carbon Dioxide BUN Creatinine Glucose POC Glucose 148 H 165 H 114 H Lactic Acid Calcium AST ALT Alkaline Phosphatase CK-MB (CK-2) CK-MB (CK-2) Rel Index Total Protein Albumin TSH Urine WBC (Auto) Salicylates 01/10/17 01/10/17 01/10/17 20:20 21:39 23:24 WBC RBC Hgb Hct MCV MCH RDW Plt Count Lymph % (Auto) [place] % (Auto) Eos % (Auto) Seg Neutrophils % Seg Neuts % (Manual) Lymphocytes % (Manual) Seg Neutrophils # Seg Neutrophils # Man Lymphocytes # (Manual) APTT POC ABG pH ABG pH POC ABG pCO2 POC ABG pO2 ABG pO2 ABG HCO3 ABG Base Excess ABG Hemoglobin VBG pH Oxyhemoglobin Sodium Potassium Chloride Carbon Dioxide BUN Creatinine Glucose POC Glucose 150 H 175 H 155 H Lactic Acid Calcium AST ALT Alkaline Phosphatase CK-MB (CK-2) CK-MB (CK-2) Rel Index Total Protein Albumin TSH Urine WBC (Auto) Salicylates 01/11/17 01/11/17 01/11/17 00:19 04:06 05:20 WBC 15.2 H RBC 3.40 L Hgb 8.9 L Hct 26.3 L MCV 78 L MCH 26 L RDW 18.6 H Plt Count 462 H Lymph % (Auto) 13.2 L [place] % (Auto) Eos % (Auto) Seg Neutrophils % 80.8 H Seg Neuts % (Manual) Lymphocytes % (Manual) Seg Neutrophils # 12.3 H Seg Neutrophils # Man Lymphocytes # (Manual) APTT POC ABG pH 7.463 H ABG pH POC ABG pCO2 26.2 L POC ABG pO2 185 H ABG pO2 ABG HCO3 ABG Base Excess ABG Hemoglobin VBG pH Oxyhemoglobin Sodium Potassium Chloride Carbon Dioxide BUN Creatinine Glucose POC Glucose 163 H Lactic Acid Calcium AST ALT Alkaline Phosphatase CK-MB (CK-2) CK-MB (CK-2) Rel Index Total Protein Albumin TSH Urine WBC (Auto) Salicylates 01/11/17 01/11/17 01/11/17 05:20 06:21 07:57 WBC RBC Hgb Hct MCV MCH RDW Plt Count Lymph % (Auto) [place] % (Auto) Eos % (Auto) Seg Neutrophils % Seg Neuts % (Manual) Lymphocytes % (Manual) Seg Neutrophils # Seg Neutrophils # Man Lymphocytes # (Manual) APTT POC ABG pH ABG pH POC ABG pCO2 POC ABG pO2 ABG pO2 ABG HCO3 ABG Base Excess ABG Hemoglobin VBG pH Oxyhemoglobin Sodium Potassium 3.4 L Chloride 111.5 H Carbon Dioxide 17 L BUN Creatinine Glucose 147 H POC Glucose 139 H 188 H Lactic Acid Calcium 8.0 L AST ALT Alkaline Phosphatase CK-MB (CK-2) CK-MB (CK-2) Rel Index Total Protein Albumin TSH Urine WBC (Auto) Salicylates 01/11/17 01/11/17 01/11/17 11:46 16:50 23:15 WBC RBC Hgb Hct MCV MCH RDW Plt Count Lymph % (Auto) [place] % (Auto) Eos % (Auto) Seg Neutrophils % Seg Neuts % (Manual) Lymphocytes % (Manual) Seg Neutrophils # Seg Neutrophils # Man Lymphocytes # (Manual) APTT POC ABG pH ABG pH POC ABG pCO2 POC ABG pO2 ABG pO2 ABG HCO3 ABG Base Excess ABG Hemoglobin VBG pH Oxyhemoglobin Sodium Potassium Chloride Carbon Dioxide BUN Creatinine Glucose POC Glucose 199 H 235 H 155 H Lactic Acid Calcium AST ALT Alkaline Phosphatase CK-MB (CK-2) CK-MB (CK-2) Rel Index Total Protein Albumin TSH Urine WBC (Auto) Salicylates 01/12/17 01/12/17 01/12/17 05:02 06:56 14:50 WBC RBC Hgb Hct MCV MCH RDW Plt Count Lymph % (Auto) [place] % (Auto) Eos % (Auto) Seg Neutrophils % Seg Neuts % (Manual) Lymphocytes % (Manual) Seg Neutrophils # Seg Neutrophils # Man Lymphocytes # (Manual) APTT POC ABG pH ABG pH POC ABG pCO2 28.0 L POC ABG pO2 178 H ABG pO2 ABG HCO3 ABG Base Excess ABG Hemoglobin VBG pH Oxyhemoglobin Sodium Potassium Chloride Carbon Dioxide BUN Creatinine Glucose POC Glucose 119 H 164 H Lactic Acid Calcium AST ALT Alkaline Phosphatase CK-MB (CK-2) CK-MB (CK-2) Rel Index Total Protein Albumin TSH Urine WBC (Auto) Salicylates 01/13/17 01/13/17 01/13/17 03:37 03:37 04:26 WBC RBC 3.61 L Hgb 9.3 L Hct 28.0 L MCV 78 L MCH 26 L RDW 18.2 H Plt Count Lymph % (Auto) [place] % (Auto) Eos % (Auto) Seg Neutrophils % Seg Neuts % (Manual) Lymphocytes % (Manual) Seg Neutrophils # Seg Neutrophils # Man Lymphocytes # (Manual) APTT POC ABG pH 7.485 H ABG pH POC ABG pCO2 25.4 L POC ABG pO2 73 L ABG pO2 ABG HCO3 ABG Base Excess ABG Hemoglobin VBG pH Oxyhemoglobin Sodium Potassium Chloride 112.4 H Carbon Dioxide 19 L BUN Creatinine Glucose 118 H POC Glucose Lactic Acid Calcium 8.0 L AST ALT Alkaline Phosphatase CK-MB (CK-2) CK-MB (CK-2) Rel Index Total Protein Albumin TSH Urine WBC (Auto) Salicylates 01/13/17 01/13/17 01/13/17 06:15 11:50 17:31 WBC RBC Hgb Hct MCV MCH RDW Plt Count Lymph % (Auto) [place] % (Auto) Eos % (Auto) Seg Neutrophils % Seg Neuts % (Manual) Lymphocytes % (Manual) Seg Neutrophils # Seg Neutrophils # Man Lymphocytes # (Manual) APTT POC ABG pH ABG pH POC ABG pCO2 POC ABG pO2 ABG pO2 ABG HCO3 ABG Base Excess ABG Hemoglobin VBG pH Oxyhemoglobin Sodium Potassium Chloride Carbon Dioxide BUN Creatinine Glucose POC Glucose 116 H 171 H 203 H Lactic Acid Calcium AST ALT Alkaline Phosphatase CK-MB (CK-2) CK-MB (CK-2) Rel Index Total Protein Albumin TSH Urine WBC (Auto) Salicylates 01/14/17 01/14/17 01/14/17 00:02 04:50 04:50 WBC RBC 3.32 L Hgb 8.5 L Hct 26.1 L MCV 79 L MCH 26 L RDW 18.2 H Plt Count Lymph % (Auto) [place] % (Auto) 9.0 H Eos % (Auto) Seg Neutrophils % Seg Neuts % (Manual) Lymphocytes % (Manual) Seg Neutrophils # Seg Neutrophils # Man Lymphocytes # (Manual) APTT POC ABG pH ABG pH POC ABG pCO2 POC ABG pO2 ABG pO2 ABG HCO3 ABG Base Excess ABG Hemoglobin VBG pH Oxyhemoglobin Sodium Potassium Chloride 112.5 H Carbon Dioxide BUN Creatinine Glucose 149 H POC Glucose 157 H Lactic Acid Calcium 8.1 L AST ALT Alkaline Phosphatase CK-MB (CK-2) CK-MB (CK-2) Rel Index Total Protein Albumin TSH Urine WBC (Auto) Salicylates 01/14/17 01/14/17 01/14/17 05:10 11:27 14:07 WBC RBC Hgb Hct MCV MCH RDW Plt Count Lymph % (Auto) [place] % (Auto) Eos % (Auto) Seg Neutrophils % Seg Neuts % (Manual) Lymphocytes % (Manual) Seg Neutrophils # Seg Neutrophils # Man Lymphocytes # (Manual) APTT POC ABG pH ABG pH POC ABG pCO2 POC ABG pO2 ABG pO2 ABG HCO3 ABG Base Excess ABG Hemoglobin VBG pH Oxyhemoglobin Sodium Potassium Chloride Carbon Dioxide BUN Creatinine Glucose POC Glucose 176 H 147 H Lactic Acid Calcium AST ALT Alkaline Phosphatase CK-MB (CK-2) CK-MB (CK-2) Rel Index Total Protein Albumin TSH Urine WBC (Auto) 53.0 H Salicylates 01/14/17 01/15/17 01/15/17 16:52 00:04 05:26 WBC RBC Hgb Hct MCV MCH RDW Plt Count Lymph % (Auto) [place] % (Auto) Eos % (Auto) Seg Neutrophils % Seg Neuts % (Manual) Lymphocytes % (Manual) Seg Neutrophils # Seg Neutrophils # Man Lymphocytes # (Manual) APTT POC ABG pH ABG pH POC ABG pCO2 POC ABG pO2 ABG pO2 ABG HCO3 ABG Base Excess ABG Hemoglobin VBG pH Oxyhemoglobin Sodium Potassium Chloride Carbon Dioxide BUN Creatinine Glucose POC Glucose 131 H 193 H 215 H Lactic Acid Calcium AST ALT Alkaline Phosphatase CK-MB (CK-2) CK-MB (CK-2) Rel Index Total Protein Albumin TSH Urine WBC (Auto) Salicylates 01/15/17 01/15/17 01/15/17 11:49 17:47 21:33 WBC RBC Hgb Hct MCV MCH RDW Plt Count Lymph % (Auto) [place] % (Auto) Eos % (Auto) Seg Neutrophils % Seg Neuts % (Manual) Lymphocytes % (Manual) Seg Neutrophils # Seg Neutrophils # Man Lymphocytes # (Manual) APTT POC ABG pH ABG pH POC ABG pCO2 POC ABG pO2 ABG pO2 ABG HCO3 ABG Base Excess ABG Hemoglobin VBG pH Oxyhemoglobin Sodium Potassium Chloride Carbon Dioxide BUN Creatinine Glucose POC Glucose 121 H 211 H 275 H Lactic Acid Calcium AST ALT Alkaline Phosphatase CK-MB (CK-2) CK-MB (CK-2) Rel Index Total Protein Albumin TSH Urine WBC (Auto) Salicylates 01/16/17 01/16/17 01/16/17 04:30 05:28 13:45 WBC RBC Hgb Hct MCV MCH RDW Plt Count Lymph % (Auto) [place] % (Auto) Eos % (Auto) Seg Neutrophils % Seg Neuts % (Manual) Lymphocytes % (Manual) Seg Neutrophils # Seg Neutrophils # Man Lymphocytes # (Manual) APTT POC ABG pH ABG pH 7.457 H POC ABG pCO2 POC ABG pO2 ABG pO2 55.1 L ABG HCO3 19.4 L ABG Base Excess -4.0 L ABG Hemoglobin 6.8 L VBG pH Oxyhemoglobin 94.9 L Sodium Potassium Chloride Carbon Dioxide BUN Creatinine Glucose POC Glucose 271 H 236 H Lactic Acid Calcium AST ALT Alkaline Phosphatase CK-MB (CK-2) CK-MB (CK-2) Rel Index Total Protein Albumin TSH Urine WBC (Auto) Salicylates 01/16/17 01/17/17 01/17/17 21:39 04:10 04:10 WBC 4.4 L RBC 2.98 L Hgb 7.7 L Hct 23.3 L MCV 78 L MCH 26 L RDW 18.1 H Plt Count Lymph % (Auto) [place] % (Auto) Eos % (Auto) Seg Neutrophils % Seg Neuts % (Manual) Lymphocytes % (Manual) Seg Neutrophils # Seg Neutrophils # Man Lymphocytes # (Manual) APTT POC ABG pH ABG pH POC ABG pCO2 POC ABG pO2 ABG pO2 ABG HCO3 ABG Base Excess ABG Hemoglobin VBG pH Oxyhemoglobin Sodium Potassium 3.3 L Chloride 108.7 H Carbon Dioxide 20 L BUN 8 L Creatinine Glucose 202 H POC Glucose 258 H Lactic Acid Calcium 7.6 L AST ALT Alkaline Phosphatase CK-MB (CK-2) CK-MB (CK-2) Rel Index Total Protein Albumin TSH Urine WBC (Auto) Salicylates 01/17/17 01/17/17 01/17/17 04:35 12:23 16:01 WBC RBC Hgb Hct MCV MCH RDW Plt Count Lymph % (Auto) [place] % (Auto) Eos % (Auto) Seg Neutrophils % Seg Neuts % (Manual) Lymphocytes % (Manual) Seg Neutrophils # Seg Neutrophils # Man Lymphocytes # (Manual) APTT POC ABG pH ABG pH POC ABG pCO2 POC ABG pO2 ABG pO2 160.3 H ABG HCO3 ABG Base Excess -2.3 L ABG Hemoglobin 7.9 L VBG pH Oxyhemoglobin Sodium Potassium Chloride Carbon Dioxide BUN Creatinine Glucose POC Glucose 321 H 239 H Lactic Acid Calcium AST ALT Alkaline Phosphatase CK-MB (CK-2) CK-MB (CK-2) Rel Index Total Protein Albumin TSH Urine WBC (Auto) Salicylates 01/18/17 01/18/17 01/18/17 05:07 12:09 17:54 WBC RBC Hgb Hct MCV MCH RDW Plt Count Lymph % (Auto) [place] % (Auto) Eos % (Auto) Seg Neutrophils % Seg Neuts % (Manual) Lymphocytes % (Manual) Seg Neutrophils # Seg Neutrophils # Man Lymphocytes # (Manual) APTT POC ABG pH ABG pH POC ABG pCO2 POC ABG pO2 ABG pO2 ABG HCO3 ABG Base Excess ABG Hemoglobin VBG pH Oxyhemoglobin Sodium Potassium Chloride Carbon Dioxide BUN Creatinine Glucose POC Glucose 155 H 203 H 132 H Lactic Acid Calcium AST ALT Alkaline Phosphatase CK-MB (CK-2) CK-MB (CK-2) Rel Index Total Protein Albumin TSH Urine WBC (Auto) Salicylates 01/18/17 01/19/17 01/19/17 23:43 04:28 12:11 WBC RBC Hgb Hct MCV MCH RDW Plt Count Lymph % (Auto) [place] % (Auto) Eos % (Auto) Seg Neutrophils % Seg Neuts % (Manual) Lymphocytes % (Manual) Seg Neutrophils # Seg Neutrophils # Man Lymphocytes # (Manual) APTT POC ABG pH ABG pH POC ABG pCO2 POC ABG pO2 ABG pO2 ABG HCO3 ABG Base Excess ABG Hemoglobin VBG pH Oxyhemoglobin Sodium Potassium Chloride Carbon Dioxide BUN Creatinine Glucose POC Glucose 125 H 182 H 153 H Lactic Acid Calcium AST ALT Alkaline Phosphatase CK-MB (CK-2) CK-MB (CK-2) Rel Index Total Protein Albumin TSH Urine WBC (Auto) Salicylates 01/19/17 01/20/17 01/20/17 17:23 00:12 05:44 WBC RBC Hgb Hct MCV MCH RDW Plt Count Lymph % (Auto) [place] % (Auto) Eos % (Auto) Seg Neutrophils % Seg Neuts % (Manual) Lymphocytes % (Manual) Seg Neutrophils # Seg Neutrophils # Man Lymphocytes # (Manual) APTT POC ABG pH ABG pH POC ABG pCO2 POC ABG pO2 ABG pO2 ABG HCO3 ABG Base Excess ABG Hemoglobin VBG pH Oxyhemoglobin Sodium Potassium Chloride Carbon Dioxide BUN Creatinine Glucose POC Glucose 66 L 139 H 176 H Lactic Acid Calcium AST ALT Alkaline Phosphatase CK-MB (CK-2) CK-MB (CK-2) Rel Index Total Protein Albumin TSH Urine WBC (Auto) Salicylates 01/20/17 01/20/17 01/20/17 11:48 17:42 23:43 WBC RBC Hgb Hct MCV MCH RDW Plt Count Lymph % (Auto) [place] % (Auto) Eos % (Auto) Seg Neutrophils % Seg Neuts % (Manual) Lymphocytes % (Manual) Seg Neutrophils # Seg Neutrophils # Man Lymphocytes # (Manual) APTT POC ABG pH ABG pH POC ABG pCO2 POC ABG pO2 ABG pO2 ABG HCO3 ABG Base Excess ABG Hemoglobin VBG pH Oxyhemoglobin Sodium Potassium Chloride Carbon Dioxide BUN Creatinine Glucose POC Glucose 218 H 132 H 178 H Lactic Acid Calcium AST ALT Alkaline Phosphatase CK-MB (CK-2) CK-MB (CK-2) Rel Index Total Protein Albumin TSH Urine WBC (Auto) Salicylates 01/21/17 01/21/17 01/21/17 05:34 11:17 23:37 WBC RBC Hgb Hct MCV MCH RDW Plt Count Lymph % (Auto) [place] % (Auto) Eos % (Auto) Seg Neutrophils % Seg Neuts % (Manual) Lymphocytes % (Manual) Seg Neutrophils # Seg Neutrophils # Man Lymphocytes # (Manual) APTT POC ABG pH ABG pH POC ABG pCO2 POC ABG pO2 ABG pO2 ABG HCO3 ABG Base Excess ABG Hemoglobin VBG pH Oxyhemoglobin Sodium Potassium Chloride Carbon Dioxide BUN Creatinine Glucose POC Glucose 106 H 213 H 140 H Lactic Acid Calcium AST ALT Alkaline Phosphatase CK-MB (CK-2) CK-MB (CK-2) Rel Index Total Protein Albumin TSH Urine WBC (Auto) Salicylates 01/22/17 01/22/17 01/22/17 04:00 04:00 04:58 WBC RBC 3.26 L Hgb 8.3 L Hct 25.5 L MCV 78 L MCH 25 L RDW 17.9 H Plt Count Lymph % (Auto) [place] % (Auto) 7.9 H Eos % (Auto) 6.2 H Seg Neutrophils % Seg Neuts % (Manual) Lymphocytes % (Manual) Seg Neutrophils # Seg Neutrophils # Man Lymphocytes # (Manual) APTT POC ABG pH ABG pH POC ABG pCO2 POC ABG pO2 ABG pO2 ABG HCO3 ABG Base Excess ABG Hemoglobin VBG pH Oxyhemoglobin Sodium Potassium Chloride 95.5 L Carbon Dioxide 31 H D BUN Creatinine Glucose 134 H POC Glucose 146 H Lactic Acid Calcium AST 44 H ALT Alkaline Phosphatase 379 H CK-MB (CK-2) CK-MB (CK-2) Rel Index Total Protein Albumin 2.7 L TSH Urine WBC (Auto) Salicylates 01/22/17 01/22/17 01/22/17 12:12 18:12 23:39 WBC RBC Hgb Hct MCV MCH RDW Plt Count Lymph % (Auto) [place] % (Auto) Eos % (Auto) Seg Neutrophils % Seg Neuts % (Manual) Lymphocytes % (Manual) Seg Neutrophils # Seg Neutrophils # Man Lymphocytes # (Manual) APTT POC ABG pH ABG pH POC ABG pCO2 POC ABG pO2 ABG pO2 ABG HCO3 ABG Base Excess ABG Hemoglobin VBG pH Oxyhemoglobin Sodium Potassium Chloride Carbon Dioxide BUN Creatinine Glucose POC Glucose 255 H 182 H 134 H Lactic Acid Calcium AST ALT Alkaline Phosphatase CK-MB (CK-2) CK-MB (CK-2) Rel Index Total Protein Albumin TSH Urine WBC (Auto) Salicylates 01/23/17 01/23/17 01/23/17 04:43 12:12 17:36 WBC RBC Hgb Hct MCV MCH RDW Plt Count Lymph % (Auto) [place] % (Auto) Eos % (Auto) Seg Neutrophils % Seg Neuts % (Manual) Lymphocytes % (Manual) Seg Neutrophils # Seg Neutrophils # Man Lymphocytes # (Manual) APTT POC ABG pH ABG pH POC ABG pCO2 POC ABG pO2 ABG pO2 ABG HCO3 ABG Base Excess ABG Hemoglobin VBG pH Oxyhemoglobin Sodium Potassium Chloride Carbon Dioxide BUN Creatinine Glucose POC Glucose 218 H 128 H 156 H Lactic Acid Calcium AST ALT Alkaline Phosphatase CK-MB (CK-2) CK-MB (CK-2) Rel Index Total Protein Albumin TSH Urine WBC (Auto) Salicylates 01/24/17 01/24/17 01/24/17 00:08 05:16 11:40 WBC RBC Hgb Hct MCV MCH RDW Plt Count Lymph % (Auto) [place] % (Auto) Eos % (Auto) Seg Neutrophils % Seg Neuts % (Manual) Lymphocytes % (Manual) Seg Neutrophils # Seg Neutrophils # Man Lymphocytes # (Manual) APTT POC ABG pH ABG pH POC ABG pCO2 POC ABG pO2 ABG pO2 ABG HCO3 ABG Base Excess ABG Hemoglobin VBG pH Oxyhemoglobin Sodium Potassium Chloride Carbon Dioxide BUN Creatinine Glucose POC Glucose 129 H 169 H 187 H Lactic Acid Calcium AST ALT Alkaline Phosphatase CK-MB (CK-2) CK-MB (CK-2) Rel Index Total Protein Albumin TSH Urine WBC (Auto) Salicylates 01/24/17 01/24/17 01/25/17 17:43 23:23 04:56 WBC RBC Hgb Hct MCV MCH RDW Plt Count Lymph % (Auto) [place] % (Auto) Eos % (Auto) Seg Neutrophils % Seg Neuts % (Manual) Lymphocytes % (Manual) Seg Neutrophils # Seg Neutrophils # Man Lymphocytes # (Manual) APTT POC ABG pH ABG pH POC ABG pCO2 POC ABG pO2 ABG pO2 ABG HCO3 ABG Base Excess ABG Hemoglobin VBG pH Oxyhemoglobin Sodium Potassium Chloride Carbon Dioxide BUN Creatinine Glucose POC Glucose 215 H 222 H 210 H Lactic Acid Calcium AST ALT Alkaline Phosphatase CK-MB (CK-2) CK-MB (CK-2) Rel Index Total Protein Albumin TSH Urine WBC (Auto) Salicylates 01/25/17 01/25/17 01/26/17 11:52 17:37 00:02 WBC RBC Hgb Hct MCV MCH RDW Plt Count Lymph % (Auto) [place] % (Auto) Eos % (Auto) Seg Neutrophils % Seg Neuts % (Manual) Lymphocytes % (Manual) Seg Neutrophils # Seg Neutrophils # Man Lymphocytes # (Manual) APTT POC ABG pH ABG pH POC ABG pCO2 POC ABG pO2 ABG pO2 ABG HCO3 ABG Base Excess ABG Hemoglobin VBG pH Oxyhemoglobin Sodium Potassium Chloride Carbon Dioxide BUN Creatinine Glucose POC Glucose 284 H 218 H 192 H Lactic Acid Calcium AST ALT Alkaline Phosphatase CK-MB (CK-2) CK-MB (CK-2) Rel Index Total Protein Albumin TSH Urine WBC (Auto) Salicylates 01/26/17 01/26/17 01/26/17 05:33 12:17 17:50 WBC RBC Hgb Hct MCV MCH RDW Plt Count Lymph % (Auto) [place] % (Auto) Eos % (Auto) Seg Neutrophils % Seg Neuts % (Manual) Lymphocytes % (Manual) Seg Neutrophils # Seg Neutrophils # Man Lymphocytes # (Manual) APTT POC ABG pH ABG pH POC ABG pCO2 POC ABG pO2 ABG pO2 ABG HCO3 ABG Base Excess ABG Hemoglobin VBG pH Oxyhemoglobin Sodium Potassium Chloride Carbon Dioxide BUN Creatinine Glucose POC Glucose 199 H 227 H 229 H Lactic Acid Calcium AST ALT Alkaline Phosphatase CK-MB (CK-2) CK-MB (CK-2) Rel Index Total Protein Albumin TSH Urine WBC (Auto) Salicylates 01/26/17 01/27/17 01/27/17 23:57 05:31 11:42 WBC RBC Hgb Hct MCV MCH RDW Plt Count Lymph % (Auto) [place] % (Auto) Eos % (Auto) Seg Neutrophils % Seg Neuts % (Manual) Lymphocytes % (Manual) Seg Neutrophils # Seg Neutrophils # Man Lymphocytes # (Manual) APTT POC ABG pH ABG pH POC ABG pCO2 POC ABG pO2 ABG pO2 ABG HCO3 ABG Base Excess ABG Hemoglobin VBG pH Oxyhemoglobin Sodium Potassium Chloride Carbon Dioxide BUN Creatinine Glucose POC Glucose 186 H 285 H 260 H Lactic Acid Calcium AST ALT Alkaline Phosphatase CK-MB (CK-2) CK-MB (CK-2) Rel Index Total Protein Albumin TSH Urine WBC (Auto) Salicylates 01/27/17 01/27/17 01/27/17 17:47 23:58 Unknown WBC 12.1 H RBC 3.28 L Hgb 8.5 L Hct 25.5 L MCV 78 L MCH 26 L RDW 16.8 H Plt Count 601 H Lymph % (Auto) [place] % (Auto) Eos % (Auto) Seg Neutrophils % Seg Neuts % (Manual) Lymphocytes % (Manual) Seg Neutrophils # Seg Neutrophils # Man Lymphocytes # (Manual) APTT POC ABG pH ABG pH POC ABG pCO2 POC ABG pO2 ABG pO2 ABG HCO3 ABG Base Excess ABG Hemoglobin VBG pH Oxyhemoglobin Sodium Potassium Chloride Carbon Dioxide BUN Creatinine Glucose POC Glucose 329 H 225 H Lactic Acid Calcium AST ALT Alkaline Phosphatase CK-MB (CK-2) CK-MB (CK-2) Rel Index Total Protein Albumin TSH Urine WBC (Auto) Salicylates 01/27/17 01/28/17 01/28/17 Unknown 03:44 03:44 WBC RBC 3.14 L Hgb 8.2 L Hct 24.1 L MCV 77 L MCH 26 L RDW 16.9 H Plt Count 567 H Lymph % (Auto) [place] % (Auto) Eos % (Auto) Seg Neutrophils % Seg Neuts % (Manual) Lymphocytes % (Manual) Seg Neutrophils # Seg Neutrophils # Man Lymphocytes # (Manual) APTT POC ABG pH ABG pH POC ABG pCO2 POC ABG pO2 ABG pO2 ABG HCO3 ABG Base Excess ABG Hemoglobin VBG pH Oxyhemoglobin Sodium 128 L Potassium 5.4 H Chloride 87.5 L Carbon Dioxide BUN 44 H 42 H Creatinine Glucose 250 H 128 H POC Glucose Lactic Acid Calcium AST ALT Alkaline Phosphatase CK-MB (CK-2) CK-MB (CK-2) Rel Index Total Protein Albumin TSH Urine WBC (Auto) Salicylates 01/28/17 01/28/17 01/28/17 11:43 16:47 17:52 WBC RBC Hgb Hct MCV MCH RDW Plt Count Lymph % (Auto) [place] % (Auto) Eos % (Auto) Seg Neutrophils % Seg Neuts % (Manual) Lymphocytes % (Manual) Seg Neutrophils # Seg Neutrophils # Man Lymphocytes # (Manual) APTT POC ABG pH ABG pH POC ABG pCO2 POC ABG pO2 ABG pO2 ABG HCO3 ABG Base Excess ABG Hemoglobin VBG pH Oxyhemoglobin Sodium Potassium Chloride Carbon Dioxide BUN Creatinine Glucose POC Glucose 351 H 249 H Lactic Acid Calcium AST ALT Alkaline Phosphatase CK-MB (CK-2) CK-MB (CK-2) Rel Index Total Protein Albumin TSH Urine WBC (Auto) > 182.0 H Salicylates 01/29/17 01/29/17 01/29/17 05:25 05:25 09:32 WBC 13.6 H RBC 3.25 L Hgb 8.3 L Hct 25.1 L MCV 77 L MCH 26 L RDW 16.8 H Plt Count 514 H Lymph % (Auto) [place] % (Auto) Eos % (Auto) Seg Neutrophils % Seg Neuts % (Manual) Lymphocytes % (Manual) Seg Neutrophils # Seg Neutrophils # Man Lymphocytes # (Manual) APTT POC ABG pH ABG pH POC ABG pCO2 POC ABG pO2 ABG pO2 ABG HCO3 ABG Base Excess ABG Hemoglobin VBG pH Oxyhemoglobin Sodium Potassium Chloride 97.8 L Carbon Dioxide BUN 34 H Creatinine Glucose 222 H POC Glucose Lactic Acid 2.50 H* Calcium AST ALT Alkaline Phosphatase CK-MB (CK-2) CK-MB (CK-2) Rel Index Total Protein Albumin TSH Urine WBC (Auto) Salicylates 01/29/17 01/29/17 01/29/17 11:56 18:11 23:55 WBC RBC Hgb Hct MCV MCH RDW Plt Count Lymph % (Auto) [place] % (Auto) Eos % (Auto) Seg Neutrophils % Seg Neuts % (Manual) Lymphocytes % (Manual) Seg Neutrophils # Seg Neutrophils # Man Lymphocytes # (Manual) APTT POC ABG pH ABG pH POC ABG pCO2 POC ABG pO2 ABG pO2 ABG HCO3 ABG Base Excess ABG Hemoglobin VBG pH Oxyhemoglobin Sodium Potassium Chloride Carbon Dioxide BUN Creatinine Glucose POC Glucose 261 H 215 H 176 H Lactic Acid Calcium AST ALT Alkaline Phosphatase CK-MB (CK-2) CK-MB (CK-2) Rel Index Total Protein Albumin TSH Urine WBC (Auto) Salicylates 01/30/17 01/30/17 01/30/17 05:31 05:31 05:34 WBC 15.2 H RBC 3.09 L Hgb 7.9 L Hct 23.9 L MCV 77 L MCH 26 L RDW 16.9 H Plt Count 569 H Lymph % (Auto) [place] % (Auto) Eos % (Auto) Seg Neutrophils % Seg Neuts % (Manual) Lymphocytes % (Manual) Seg Neutrophils # Seg Neutrophils # Man Lymphocytes # (Manual) APTT POC ABG pH ABG pH POC ABG pCO2 POC ABG pO2 ABG pO2 ABG HCO3 ABG Base Excess ABG Hemoglobin VBG pH Oxyhemoglobin Sodium Potassium Chloride Carbon Dioxide BUN 24 H Creatinine Glucose 235 H POC Glucose 243 H Lactic Acid Calcium AST ALT Alkaline Phosphatase CK-MB (CK-2) CK-MB (CK-2) Rel Index Total Protein Albumin TSH Urine WBC (Auto) Salicylates 01/30/17 01/30/17 01/30/17 11:38 17:58 23:29 WBC RBC Hgb Hct MCV MCH RDW Plt Count Lymph % (Auto) [place] % (Auto) Eos % (Auto) Seg Neutrophils % Seg Neuts % (Manual) Lymphocytes % (Manual) Seg Neutrophils # Seg Neutrophils # Man Lymphocytes # (Manual) APTT POC ABG pH ABG pH POC ABG pCO2 POC ABG pO2 ABG pO2 ABG HCO3 ABG Base Excess ABG Hemoglobin VBG pH Oxyhemoglobin Sodium Potassium Chloride Carbon Dioxide BUN Creatinine Glucose POC Glucose 298 H 208 H 245 H Lactic Acid Calcium AST ALT Alkaline Phosphatase CK-MB (CK-2) CK-MB (CK-2) Rel Index Total Protein Albumin TSH Urine WBC (Auto) Salicylates 01/31/17 01/31/17 01/31/17 04:39 04:39 05:57 WBC 11.4 H RBC 3.22 L Hgb 8.2 L Hct 24.9 L MCV 78 L MCH 25 L RDW 17.2 H Plt Count 576 H Lymph % (Auto) [place] % (Auto) Eos % (Auto) Seg Neutrophils % Seg Neuts % (Manual) Lymphocytes % (Manual) Seg Neutrophils # Seg Neutrophils # Man Lymphocytes # (Manual) APTT POC ABG pH ABG pH POC ABG pCO2 POC ABG pO2 ABG pO2 ABG HCO3 ABG Base Excess ABG Hemoglobin VBG pH Oxyhemoglobin Sodium Potassium Chloride Carbon Dioxide BUN Creatinine 0.7 L Glucose 223 H POC Glucose 264 H Lactic Acid Calcium AST ALT Alkaline Phosphatase CK-MB (CK-2) CK-MB (CK-2) Rel Index Total Protein Albumin TSH Urine WBC (Auto) Salicylates 01/31/17 01/31/17 01/31/17 12:23 17:41 18:55 WBC RBC Hgb Hct MCV MCH RDW Plt Count Lymph % (Auto) [place] % (Auto) Eos % (Auto) Seg Neutrophils % Seg Neuts % (Manual) Lymphocytes % (Manual) Seg Neutrophils # Seg Neutrophils # Man Lymphocytes # (Manual) APTT POC ABG pH ABG pH POC ABG pCO2 32.8 L POC ABG pO2 ABG pO2 ABG HCO3 ABG Base Excess ABG Hemoglobin VBG pH Oxyhemoglobin Sodium Potassium Chloride Carbon Dioxide BUN Creatinine Glucose POC Glucose 252 H 208 H Lactic Acid Calcium AST ALT Alkaline Phosphatase CK-MB (CK-2) CK-MB (CK-2) Rel Index Total Protein Albumin TSH Urine WBC (Auto) Salicylates 01/31/17 02/01/17 02/01/17 22:59 03:38 03:38 WBC RBC 2.81 L Hgb 7.4 L Hct 22.1 L MCV 79 L MCH 27 L RDW 17.0 H Plt Count 540 H Lymph % (Auto) [place] % (Auto) Eos % (Auto) Seg Neutrophils % Seg Neuts % (Manual) Lymphocytes % (Manual) Seg Neutrophils # Seg Neutrophils # Man Lymphocytes # (Manual) APTT POC ABG pH ABG pH POC ABG pCO2 POC ABG pO2 ABG pO2 ABG HCO3 ABG Base Excess ABG Hemoglobin VBG pH Oxyhemoglobin Sodium Potassium Chloride Carbon Dioxide 21 L BUN Creatinine 0.7 L Glucose POC Glucose 40 L Lactic Acid Calcium AST ALT Alkaline Phosphatase CK-MB (CK-2) CK-MB (CK-2) Rel Index Total Protein Albumin TSH Urine WBC (Auto) Salicylates 02/01/17 02/01/17 02/01/17 05:17 12:19 16:44 WBC RBC Hgb Hct MCV MCH RDW Plt Count Lymph % (Auto) [place] % (Auto) Eos % (Auto) Seg Neutrophils % Seg Neuts % (Manual) Lymphocytes % (Manual) Seg Neutrophils # Seg Neutrophils # Man Lymphocytes # (Manual) APTT POC ABG pH ABG pH POC ABG pCO2 POC ABG pO2 ABG pO2 ABG HCO3 ABG Base Excess ABG Hemoglobin VBG pH Oxyhemoglobin Sodium Potassium Chloride Carbon Dioxide BUN Creatinine Glucose POC Glucose 140 H 213 H 172 H Lactic Acid Calcium AST ALT Alkaline Phosphatase CK-MB (CK-2) CK-MB (CK-2) Rel Index Total Protein Albumin TSH Urine WBC (Auto) Salicylates 02/01/17 02/02/17 02/02/17 23:59 05:14 11:24 WBC RBC Hgb Hct MCV MCH RDW Plt Count Lymph % (Auto) [place] % (Auto) Eos % (Auto) Seg Neutrophils % Seg Neuts % (Manual) Lymphocytes % (Manual) Seg Neutrophils # Seg Neutrophils # Man Lymphocytes # (Manual) APTT POC ABG pH ABG pH POC ABG pCO2 POC ABG pO2 ABG pO2 ABG HCO3 ABG Base Excess ABG Hemoglobin VBG pH Oxyhemoglobin Sodium Potassium Chloride Carbon Dioxide BUN Creatinine Glucose POC Glucose 181 H 194 H 209 H Lactic Acid Calcium AST ALT Alkaline Phosphatase CK-MB (CK-2) CK-MB (CK-2) Rel Index Total Protein Albumin TSH Urine WBC (Auto) Salicylates 02/02/17 02/02/17 02/02/17 11:46 11:46 17:47 WBC RBC 2.94 L Hgb 7.5 L Hct 23.0 L MCV 78 L MCH 25 L RDW 16.9 H Plt Count 520 H Lymph % (Auto) [place] % (Auto) Eos % (Auto) Seg Neutrophils % Seg Neuts % (Manual) Lymphocytes % (Manual) Seg Neutrophils # Seg Neutrophils # Man Lymphocytes # (Manual) APTT POC ABG pH ABG pH POC ABG pCO2 POC ABG pO2 ABG pO2 ABG HCO3 ABG Base Excess ABG Hemoglobin VBG pH Oxyhemoglobin Sodium Potassium Chloride Carbon Dioxide BUN Creatinine 0.6 L Glucose 189 H POC Glucose 147 H Lactic Acid Calcium 8.1 L AST ALT Alkaline Phosphatase CK-MB (CK-2) CK-MB (CK-2) Rel Index Total Protein Albumin TSH Urine WBC (Auto) Salicylates 02/02/17 02/03/17 02/03/17 23:32 05:53 11:19 WBC RBC Hgb Hct MCV MCH RDW Plt Count Lymph % (Auto) [place] % (Auto) Eos % (Auto) Seg Neutrophils % Seg Neuts % (Manual) Lymphocytes % (Manual) Seg Neutrophils # Seg Neutrophils # Man Lymphocytes # (Manual) APTT POC ABG pH ABG pH POC ABG pCO2 POC ABG pO2 ABG pO2 ABG HCO3 ABG Base Excess ABG Hemoglobin VBG pH Oxyhemoglobin Sodium Potassium Chloride Carbon Dioxide BUN Creatinine Glucose POC Glucose 176 H 224 H 228 H Lactic Acid Calcium AST ALT Alkaline Phosphatase CK-MB (CK-2) CK-MB (CK-2) Rel Index Total Protein Albumin TSH Urine WBC (Auto) Salicylates 02/03/17 02/03/17 02/04/17 16:59 23:38 05:45 WBC RBC Hgb Hct MCV MCH RDW Plt Count Lymph % (Auto) [place] % (Auto) Eos % (Auto) Seg Neutrophils % Seg Neuts % (Manual) Lymphocytes % (Manual) Seg Neutrophils # Seg Neutrophils # Man Lymphocytes # (Manual) APTT POC ABG pH ABG pH POC ABG pCO2 POC ABG pO2 ABG pO2 ABG HCO3 ABG Base Excess ABG Hemoglobin VBG pH Oxyhemoglobin Sodium Potassium Chloride Carbon Dioxide BUN Creatinine Glucose POC Glucose 189 H 191 H 251 H Lactic Acid Calcium AST ALT Alkaline Phosphatase CK-MB (CK-2) CK-MB (CK-2) Rel Index Total Protein Albumin TSH Urine WBC (Auto) Salicylates 02/04/17 02/04/17 02/05/17 11:20 17:20 00:17 WBC RBC Hgb Hct MCV MCH RDW Plt Count Lymph % (Auto) [place] % (Auto) Eos % (Auto) Seg Neutrophils % Seg Neuts % (Manual) Lymphocytes % (Manual) Seg Neutrophils # Seg Neutrophils # Man Lymphocytes # (Manual) APTT POC ABG pH ABG pH POC ABG pCO2 POC ABG pO2 ABG pO2 ABG HCO3 ABG Base Excess ABG Hemoglobin VBG pH Oxyhemoglobin Sodium Potassium Chloride Carbon Dioxide BUN Creatinine Glucose POC Glucose 243 H 163 H 200 H Lactic Acid Calcium AST ALT Alkaline Phosphatase CK-MB (CK-2) CK-MB (CK-2) Rel Index Total Protein Albumin TSH Urine WBC (Auto) Salicylates 02/05/17 02/05/17 02/05/17 05:38 12:38 16:29 WBC RBC Hgb Hct MCV MCH RDW Plt Count Lymph % (Auto) [place] % (Auto) Eos % (Auto) Seg Neutrophils % Seg Neuts % (Manual) Lymphocytes % (Manual) Seg Neutrophils # Seg Neutrophils # Man Lymphocytes # (Manual) APTT POC ABG pH ABG pH POC ABG pCO2 POC ABG pO2 ABG pO2 ABG HCO3 ABG Base Excess ABG Hemoglobin VBG pH Oxyhemoglobin Sodium Potassium Chloride Carbon Dioxide BUN Creatinine Glucose POC Glucose 248 H 241 H 257 H Lactic Acid Calcium AST ALT Alkaline Phosphatase CK-MB (CK-2) CK-MB (CK-2) Rel Index Total Protein Albumin TSH Urine WBC (Auto) Salicylates 02/05/17 02/06/17 02/06/17 23:56 05:30 11:50 WBC RBC Hgb Hct MCV MCH RDW Plt Count Lymph % (Auto) [place] % (Auto) Eos % (Auto) Seg Neutrophils % Seg Neuts % (Manual) Lymphocytes % (Manual) Seg Neutrophils # Seg Neutrophils # Man Lymphocytes # (Manual) APTT POC ABG pH ABG pH POC ABG pCO2 POC ABG pO2 ABG pO2 ABG HCO3 ABG Base Excess ABG Hemoglobin VBG pH Oxyhemoglobin Sodium Potassium Chloride Carbon Dioxide BUN Creatinine Glucose POC Glucose 258 H 120 H 254 H Lactic Acid Calcium AST ALT Alkaline Phosphatase CK-MB (CK-2) CK-MB (CK-2) Rel Index Total Protein Albumin TSH Urine WBC (Auto) Salicylates 02/06/17 02/06/17 02/07/17 17:11 23:50 05:22 WBC RBC Hgb Hct MCV MCH RDW Plt Count Lymph % (Auto) [place] % (Auto) Eos % (Auto) Seg Neutrophils % Seg Neuts % (Manual) Lymphocytes % (Manual) Seg Neutrophils # Seg Neutrophils # Man Lymphocytes # (Manual) APTT POC ABG pH ABG pH POC ABG pCO2 POC ABG pO2 ABG pO2 ABG HCO3 ABG Base Excess ABG Hemoglobin VBG pH Oxyhemoglobin Sodium Potassium Chloride Carbon Dioxide BUN Creatinine Glucose POC Glucose 149 H 240 H 258 H Lactic Acid Calcium AST ALT Alkaline Phosphatase CK-MB (CK-2) CK-MB (CK-2) Rel Index Total Protein Albumin TSH Urine WBC (Auto) Salicylates 02/07/17 02/07/17 02/07/17 11:15 18:33 23:59 WBC RBC Hgb Hct MCV MCH RDW Plt Count Lymph % (Auto) [place] % (Auto) Eos % (Auto) Seg Neutrophils % Seg Neuts % (Manual) Lymphocytes % (Manual) Seg Neutrophils # Seg Neutrophils # Man Lymphocytes # (Manual) APTT POC ABG pH ABG pH POC ABG pCO2 POC ABG pO2 ABG pO2 ABG HCO3 ABG Base Excess ABG Hemoglobin VBG pH Oxyhemoglobin Sodium Potassium Chloride Carbon Dioxide BUN Creatinine Glucose POC Glucose 239 H 176 H 186 H Lactic Acid Calcium AST ALT Alkaline Phosphatase CK-MB (CK-2) CK-MB (CK-2) Rel Index Total Protein Albumin TSH Urine WBC (Auto) Salicylates 02/08/17 02/08/17 02/08/17 06:15 11:55 16:55 WBC RBC Hgb Hct MCV MCH RDW Plt Count Lymph % (Auto) [place] % (Auto) Eos % (Auto) Seg Neutrophils % Seg Neuts % (Manual) Lymphocytes % (Manual) Seg Neutrophils # Seg Neutrophils # Man Lymphocytes # (Manual) APTT POC ABG pH ABG pH POC ABG pCO2 POC ABG pO2 ABG pO2 ABG HCO3 ABG Base Excess ABG Hemoglobin VBG pH Oxyhemoglobin Sodium Potassium Chloride Carbon Dioxide BUN Creatinine Glucose POC Glucose 195 H 129 H 246 H Lactic Acid Calcium AST ALT Alkaline Phosphatase CK-MB (CK-2) CK-MB (CK-2) Rel Index Total Protein Albumin TSH Urine WBC (Auto) Salicylates 02/08/17 02/09/17 02/09/17 23:51 05:51 07:24 WBC 14.7 H RBC 3.39 L Hgb 8.9 L Hct 26.4 L MCV 78 L MCH 26 L RDW 18.4 H Plt Count 670 H Lymph % (Auto) 11.8 L [place] % (Auto) Eos % (Auto) Seg Neutrophils % 81.2 H Seg Neuts % (Manual) Lymphocytes % (Manual) Seg Neutrophils # 11.9 H Seg Neutrophils # Man Lymphocytes # (Manual) APTT POC ABG pH ABG pH POC ABG pCO2 POC ABG pO2 ABG pO2 ABG HCO3 ABG Base Excess ABG Hemoglobin VBG pH Oxyhemoglobin Sodium Potassium Chloride Carbon Dioxide BUN Creatinine Glucose POC Glucose 262 H 295 H Lactic Acid Calcium AST ALT Alkaline Phosphatase CK-MB (CK-2) CK-MB (CK-2) Rel Index Total Protein Albumin TSH Urine WBC (Auto) Salicylates 02/09/17 02/09/17 02/09/17 07:24 12:08 18:39 WBC RBC Hgb Hct MCV MCH RDW Plt Count Lymph % (Auto) [place] % (Auto) Eos % (Auto) Seg Neutrophils % Seg Neuts % (Manual) Lymphocytes % (Manual) Seg Neutrophils # Seg Neutrophils # Man Lymphocytes # (Manual) APTT POC ABG pH ABG pH POC ABG pCO2 POC ABG pO2 ABG pO2 ABG HCO3 ABG Base Excess ABG Hemoglobin VBG pH Oxyhemoglobin Sodium Potassium Chloride 95.5 L Carbon Dioxide BUN 52 H Creatinine Glucose 277 H POC Glucose 236 H 151 H Lactic Acid Calcium AST ALT Alkaline Phosphatase CK-MB (CK-2) CK-MB (CK-2) Rel Index Total Protein Albumin TSH Urine WBC (Auto) Salicylates 02/10/17 02/10/17 02/10/17 00:01 05:44 11:21 WBC RBC Hgb Hct MCV MCH RDW Plt Count Lymph % (Auto) [place] % (Auto) Eos % (Auto) Seg Neutrophils % Seg Neuts % (Manual) Lymphocytes % (Manual) Seg Neutrophils # Seg Neutrophils # Man Lymphocytes # (Manual) APTT POC ABG pH ABG pH POC ABG pCO2 POC ABG pO2 ABG pO2 ABG HCO3 ABG Base Excess ABG Hemoglobin VBG pH Oxyhemoglobin Sodium Potassium Chloride Carbon Dioxide BUN Creatinine Glucose POC Glucose 210 H 201 H 233 H Lactic Acid Calcium AST ALT Alkaline Phosphatase CK-MB (CK-2) CK-MB (CK-2) Rel Index Total Protein Albumin TSH Urine WBC (Auto) Salicylates 02/10/17 02/10/17 02/11/17 17:29 23:56 05:24 WBC RBC Hgb Hct MCV MCH RDW Plt Count Lymph % (Auto) [place] % (Auto) Eos % (Auto) Seg Neutrophils % Seg Neuts % (Manual) Lymphocytes % (Manual) Seg Neutrophils # Seg Neutrophils # Man Lymphocytes # (Manual) APTT POC ABG pH ABG pH POC ABG pCO2 POC ABG pO2 ABG pO2 ABG HCO3 ABG Base Excess ABG Hemoglobin VBG pH Oxyhemoglobin Sodium Potassium Chloride Carbon Dioxide BUN Creatinine Glucose POC Glucose 167 H 191 H 135 H Lactic Acid Calcium AST ALT Alkaline Phosphatase CK-MB (CK-2) CK-MB (CK-2) Rel Index Total Protein Albumin TSH Urine WBC (Auto) Salicylates 02/11/17 02/11/17 02/11/17 12:25 17:03 23:59 WBC RBC Hgb Hct MCV MCH RDW Plt Count Lymph % (Auto) [place] % (Auto) Eos % (Auto) Seg Neutrophils % Seg Neuts % (Manual) Lymphocytes % (Manual) Seg Neutrophils # Seg Neutrophils # Man Lymphocytes # (Manual) APTT POC ABG pH ABG pH POC ABG pCO2 POC ABG pO2 ABG pO2 ABG HCO3 ABG Base Excess ABG Hemoglobin VBG pH Oxyhemoglobin Sodium Potassium Chloride Carbon Dioxide BUN Creatinine Glucose POC Glucose 275 H 172 H 215 H Lactic Acid Calcium AST ALT Alkaline Phosphatase CK-MB (CK-2) CK-MB (CK-2) Rel Index Total Protein Albumin TSH Urine WBC (Auto) Salicylates 02/12/17 02/12/17 02/12/17 05:39 11:33 17:55 WBC RBC Hgb Hct MCV MCH RDW Plt Count Lymph % (Auto) [place] % (Auto) Eos % (Auto) Seg Neutrophils % Seg Neuts % (Manual) Lymphocytes % (Manual) Seg Neutrophils # Seg Neutrophils # Man Lymphocytes # (Manual) APTT POC ABG pH ABG pH POC ABG pCO2 POC ABG pO2 ABG pO2 ABG HCO3 ABG Base Excess ABG Hemoglobin VBG pH Oxyhemoglobin Sodium Potassium Chloride Carbon Dioxide BUN Creatinine Glucose POC Glucose 261 H 217 H 172 H Lactic Acid Calcium AST ALT Alkaline Phosphatase CK-MB (CK-2) CK-MB (CK-2) Rel Index Total Protein Albumin TSH Urine WBC (Auto) Salicylates 02/13/17 02/13/17 02/13/17 00:25 06:46 11:26 WBC RBC Hgb Hct MCV MCH RDW Plt Count Lymph % (Auto) [place] % (Auto) Eos % (Auto) Seg Neutrophils % Seg Neuts % (Manual) Lymphocytes % (Manual) Seg Neutrophils # Seg Neutrophils # Man Lymphocytes # (Manual) APTT POC ABG pH ABG pH POC ABG pCO2 POC ABG pO2 ABG pO2 ABG HCO3 ABG Base Excess ABG Hemoglobin VBG pH Oxyhemoglobin Sodium Potassium Chloride Carbon Dioxide BUN Creatinine Glucose POC Glucose 207 H 219 H 231 H Lactic Acid Calcium AST ALT Alkaline Phosphatase CK-MB (CK-2) CK-MB (CK-2) Rel Index Total Protein Albumin TSH Urine WBC (Auto) Salicylates 02/13/17 02/13/17 02/14/17 17:12 23:44 05:44 WBC RBC Hgb Hct MCV MCH RDW Plt Count Lymph % (Auto) [place] % (Auto) Eos % (Auto) Seg Neutrophils % Seg Neuts % (Manual) Lymphocytes % (Manual) Seg Neutrophils # Seg Neutrophils # Man Lymphocytes # (Manual) APTT POC ABG pH ABG pH POC ABG pCO2 POC ABG pO2 ABG pO2 ABG HCO3 ABG Base Excess ABG Hemoglobin VBG pH Oxyhemoglobin Sodium Potassium Chloride Carbon Dioxide BUN Creatinine Glucose POC Glucose 190 H 256 H 184 H Lactic Acid Calcium AST ALT Alkaline Phosphatase CK-MB (CK-2) CK-MB (CK-2) Rel Index Total Protein Albumin TSH Urine WBC (Auto) Salicylates 02/14/17 02/14/17 02/14/17 12:21 17:57 23:18 WBC RBC Hgb Hct MCV MCH RDW Plt Count Lymph % (Auto) [place] % (Auto) Eos % (Auto) Seg Neutrophils % Seg Neuts % (Manual) Lymphocytes % (Manual) Seg Neutrophils # Seg Neutrophils # Man Lymphocytes # (Manual) APTT POC ABG pH ABG pH POC ABG pCO2 POC ABG pO2 ABG pO2 ABG HCO3 ABG Base Excess ABG Hemoglobin VBG pH Oxyhemoglobin Sodium Potassium Chloride Carbon Dioxide BUN Creatinine Glucose POC Glucose 233 H 155 H 165 H Lactic Acid Calcium AST ALT Alkaline Phosphatase CK-MB (CK-2) CK-MB (CK-2) Rel Index Total Protein Albumin TSH Urine WBC (Auto) Salicylates 02/15/17 02/15/17 02/15/17 05:33 11:45 17:20 WBC RBC Hgb Hct MCV MCH RDW Plt Count Lymph % (Auto) [place] % (Auto) Eos % (Auto) Seg Neutrophils % Seg Neuts % (Manual) Lymphocytes % (Manual) Seg Neutrophils # Seg Neutrophils # Man Lymphocytes # (Manual) APTT POC ABG pH ABG pH POC ABG pCO2 POC ABG pO2 ABG pO2 ABG HCO3 ABG Base Excess ABG Hemoglobin VBG pH Oxyhemoglobin Sodium Potassium Chloride Carbon Dioxide BUN Creatinine Glucose POC Glucose 239 H 130 H 189 H Lactic Acid Calcium AST ALT Alkaline Phosphatase CK-MB (CK-2) CK-MB (CK-2) Rel Index Total Protein Albumin TSH Urine WBC (Auto) Salicylates 02/16/17 02/16/17 02/16/17 00:14 05:09 12:31 WBC RBC Hgb Hct MCV MCH RDW Plt Count Lymph % (Auto) [place] % (Auto) Eos % (Auto) Seg Neutrophils % Seg Neuts % (Manual) Lymphocytes % (Manual) Seg Neutrophils # Seg Neutrophils # Man Lymphocytes # (Manual) APTT POC ABG pH ABG pH POC ABG pCO2 POC ABG pO2 ABG pO2 ABG HCO3 ABG Base Excess ABG Hemoglobin VBG pH Oxyhemoglobin Sodium Potassium Chloride Carbon Dioxide BUN Creatinine Glucose POC Glucose 197 H 226 H 178 H Lactic Acid Calcium AST ALT Alkaline Phosphatase CK-MB (CK-2) CK-MB (CK-2) Rel Index Total Protein Albumin TSH Urine WBC (Auto) Salicylates 02/16/17 02/16/17 02/17/17 16:35 23:49 05:37 WBC RBC Hgb Hct MCV MCH RDW Plt Count Lymph % (Auto) [place] % (Auto) Eos % (Auto) Seg Neutrophils % Seg Neuts % (Manual) Lymphocytes % (Manual) Seg Neutrophils # Seg Neutrophils # Man Lymphocytes # (Manual) APTT POC ABG pH ABG pH POC ABG pCO2 POC ABG pO2 ABG pO2 ABG HCO3 ABG Base Excess ABG Hemoglobin VBG pH Oxyhemoglobin Sodium Potassium Chloride Carbon Dioxide BUN Creatinine Glucose POC Glucose 174 H 62 L 153 H Lactic Acid Calcium AST ALT Alkaline Phosphatase CK-MB (CK-2) CK-MB (CK-2) Rel Index Total Protein Albumin TSH Urine WBC (Auto) Salicylates 02/17/17 02/17/17 02/17/17 11:39 17:02 22:24 WBC RBC Hgb Hct MCV MCH RDW Plt Count Lymph % (Auto) [place] % (Auto) Eos % (Auto) Seg Neutrophils % Seg Neuts % (Manual) Lymphocytes % (Manual) Seg Neutrophils # Seg Neutrophils # Man Lymphocytes # (Manual) APTT POC ABG pH ABG pH POC ABG pCO2 POC ABG pO2 ABG pO2 ABG HCO3 ABG Base Excess ABG Hemoglobin VBG pH Oxyhemoglobin Sodium Potassium Chloride Carbon Dioxide BUN Creatinine Glucose POC Glucose 231 H 112 H 116 H Lactic Acid Calcium AST ALT Alkaline Phosphatase CK-MB (CK-2) CK-MB (CK-2) Rel Index Total Protein Albumin TSH Urine WBC (Auto) Salicylates 02/18/17 02/19/17 02/19/17 15:34 05:09 07:57 WBC RBC Hgb Hct MCV MCH RDW Plt Count Lymph % (Auto) [place] % (Auto) Eos % (Auto) Seg Neutrophils % Seg Neuts % (Manual) Lymphocytes % (Manual) Seg Neutrophils # Seg Neutrophils # Man Lymphocytes # (Manual) APTT POC ABG pH ABG pH POC ABG pCO2 POC ABG pO2 ABG pO2 ABG HCO3 ABG Base Excess ABG Hemoglobin VBG pH Oxyhemoglobin Sodium Potassium Chloride Carbon Dioxide BUN Creatinine Glucose POC Glucose 215 H 218 H 283 H Lactic Acid Calcium AST ALT Alkaline Phosphatase CK-MB (CK-2) CK-MB (CK-2) Rel Index Total Protein Albumin TSH Urine WBC (Auto) Salicylates 02/19/17 02/19/17 02/20/17 14:49 22:10 05:10 WBC RBC Hgb Hct MCV MCH RDW Plt Count Lymph % (Auto) [place] % (Auto) Eos % (Auto) Seg Neutrophils % Seg Neuts % (Manual) Lymphocytes % (Manual) Seg Neutrophils # Seg Neutrophils # Man Lymphocytes # (Manual) APTT POC ABG pH ABG pH POC ABG pCO2 POC ABG pO2 ABG pO2 ABG HCO3 ABG Base Excess ABG Hemoglobin VBG pH Oxyhemoglobin Sodium Potassium Chloride Carbon Dioxide BUN Creatinine Glucose POC Glucose 290 H 169 H 209 H Lactic Acid Calcium AST ALT Alkaline Phosphatase CK-MB (CK-2) CK-MB (CK-2) Rel Index Total Protein Albumin TSH Urine WBC (Auto) Salicylates 02/20/17 02/20/17 02/21/17 15:05 21:52 02:00 WBC RBC Hgb Hct MCV MCH RDW Plt Count Lymph % (Auto) [place] % (Auto) Eos % (Auto) Seg Neutrophils % Seg Neuts % (Manual) Lymphocytes % (Manual) Seg Neutrophils # Seg Neutrophils # Man Lymphocytes # (Manual) APTT POC ABG pH ABG pH POC ABG pCO2 POC ABG pO2 ABG pO2 ABG HCO3 ABG Base Excess ABG Hemoglobin VBG pH Oxyhemoglobin Sodium Potassium Chloride Carbon Dioxide BUN Creatinine Glucose POC Glucose 172 H 209 H 216 H Lactic Acid Calcium AST ALT Alkaline Phosphatase CK-MB (CK-2) CK-MB (CK-2) Rel Index Total Protein Albumin TSH Urine WBC (Auto) Salicylates 02/21/17 02/21/17 02/21/17 04:54 14:43 17:47 WBC RBC Hgb Hct MCV MCH RDW Plt Count Lymph % (Auto) [place] % (Auto) Eos % (Auto) Seg Neutrophils % Seg Neuts % (Manual) Lymphocytes % (Manual) Seg Neutrophils # Seg Neutrophils # Man Lymphocytes # (Manual) APTT POC ABG pH ABG pH POC ABG pCO2 POC ABG pO2 ABG pO2 ABG HCO3 ABG Base Excess ABG Hemoglobin VBG pH Oxyhemoglobin Sodium Potassium Chloride Carbon Dioxide BUN Creatinine Glucose POC Glucose 227 H 290 H 220 H Lactic Acid Calcium AST ALT Alkaline Phosphatase CK-MB (CK-2) CK-MB (CK-2) Rel Index Total Protein Albumin TSH Urine WBC (Auto) Salicylates 02/21/17 02/22/17 02/22/17 22:02 04:52 15:25 WBC RBC Hgb Hct MCV MCH RDW Plt Count Lymph % (Auto) [place] % (Auto) Eos % (Auto) Seg Neutrophils % Seg Neuts % (Manual) Lymphocytes % (Manual) Seg Neutrophils # Seg Neutrophils # Man Lymphocytes # (Manual) APTT POC ABG pH ABG pH POC ABG pCO2 POC ABG pO2 ABG pO2 ABG HCO3 ABG Base Excess ABG Hemoglobin VBG pH Oxyhemoglobin Sodium Potassium Chloride Carbon Dioxide BUN Creatinine Glucose POC Glucose 246 H 212 H 236 H Lactic Acid Calcium AST ALT Alkaline Phosphatase CK-MB (CK-2) CK-MB (CK-2) Rel Index Total Protein Albumin TSH Urine WBC (Auto) Salicylates 02/22/17 02/23/17 02/23/17 21:33 06:04 10:00 WBC RBC Hgb Hct MCV MCH RDW Plt Count Lymph % (Auto) [place] % (Auto) Eos % (Auto) Seg Neutrophils % Seg Neuts % (Manual) Lymphocytes % (Manual) Seg Neutrophils # Seg Neutrophils # Man Lymphocytes # (Manual) APTT POC ABG pH ABG pH POC ABG pCO2 POC ABG pO2 ABG pO2 ABG HCO3 ABG Base Excess ABG Hemoglobin VBG pH Oxyhemoglobin Sodium Potassium Chloride Carbon Dioxide BUN Creatinine Glucose POC Glucose 255 H 208 H 174 H Lactic Acid Calcium AST ALT Alkaline Phosphatase CK-MB (CK-2) CK-MB (CK-2) Rel Index Total Protein Albumin TSH Urine WBC (Auto) Salicylates 02/23/17 02/23/17 02/23/17 12:52 17:15 21:51 WBC RBC Hgb Hct MCV MCH RDW Plt Count Lymph % (Auto) [place] % (Auto) Eos % (Auto) Seg Neutrophils % Seg Neuts % (Manual) Lymphocytes % (Manual) Seg Neutrophils # Seg Neutrophils # Man Lymphocytes # (Manual) APTT POC ABG pH ABG pH POC ABG pCO2 POC ABG pO2 ABG pO2 ABG HCO3 ABG Base Excess ABG Hemoglobin VBG pH Oxyhemoglobin Sodium Potassium Chloride Carbon Dioxide BUN Creatinine Glucose POC Glucose 203 H 269 H 205 H Lactic Acid Calcium AST ALT Alkaline Phosphatase CK-MB (CK-2) CK-MB (CK-2) Rel Index Total Protein Albumin TSH Urine WBC (Auto) Salicylates 02/24/17 02/24/17 02/24/17 10:23 17:45 21:24 WBC RBC Hgb Hct MCV MCH RDW Plt Count Lymph % (Auto) [place] % (Auto) Eos % (Auto) Seg Neutrophils % Seg Neuts % (Manual) Lymphocytes % (Manual) Seg Neutrophils # Seg Neutrophils # Man Lymphocytes # (Manual) APTT POC ABG pH ABG pH POC ABG pCO2 POC ABG pO2 ABG pO2 ABG HCO3 ABG Base Excess ABG Hemoglobin VBG pH Oxyhemoglobin Sodium Potassium Chloride Carbon Dioxide BUN Creatinine Glucose POC Glucose 280 H 239 H 254 H Lactic Acid Calcium AST ALT Alkaline Phosphatase CK-MB (CK-2) CK-MB (CK-2) Rel Index Total Protein Albumin TSH Urine WBC (Auto) Salicylates 02/25/17 02/25/17 02/25/17 02:12 05:17 14:32 WBC RBC Hgb Hct MCV MCH RDW Plt Count Lymph % (Auto) [place] % (Auto) Eos % (Auto) Seg Neutrophils % Seg Neuts % (Manual) Lymphocytes % (Manual) Seg Neutrophils # Seg Neutrophils # Man Lymphocytes # (Manual) APTT POC ABG pH ABG pH POC ABG pCO2 POC ABG pO2 ABG pO2 ABG HCO3 ABG Base Excess ABG Hemoglobin VBG pH Oxyhemoglobin Sodium Potassium Chloride Carbon Dioxide BUN Creatinine Glucose POC Glucose 296 H 332 H 353 H Lactic Acid Calcium AST ALT Alkaline Phosphatase CK-MB (CK-2) CK-MB (CK-2) Rel Index Total Protein Albumin TSH Urine WBC (Auto) Salicylates 02/25/17 02/26/17 02/26/17 22:14 00:37 05:52 WBC RBC Hgb Hct MCV MCH RDW Plt Count Lymph % (Auto) [place] % (Auto) Eos % (Auto) Seg Neutrophils % Seg Neuts % (Manual) Lymphocytes % (Manual) Seg Neutrophils # Seg Neutrophils # Man Lymphocytes # (Manual) APTT POC ABG pH ABG pH POC ABG pCO2 POC ABG pO2 ABG pO2 ABG HCO3 ABG Base Excess ABG Hemoglobin VBG pH Oxyhemoglobin Sodium Potassium Chloride Carbon Dioxide BUN Creatinine Glucose POC Glucose 201 H 233 H 269 H Lactic Acid Calcium AST ALT Alkaline Phosphatase CK-MB (CK-2) CK-MB (CK-2) Rel Index Total Protein Albumin TSH Urine WBC (Auto) Salicylates 02/26/17 02/26/17 02/26/17 11:48 13:49 21:26 WBC RBC Hgb Hct MCV MCH RDW Plt Count Lymph % (Auto) [place] % (Auto) Eos % (Auto) Seg Neutrophils % Seg Neuts % (Manual) Lymphocytes % (Manual) Seg Neutrophils # Seg Neutrophils # Man Lymphocytes # (Manual) APTT POC ABG pH ABG pH POC ABG pCO2 POC ABG pO2 ABG pO2 ABG HCO3 ABG Base Excess ABG Hemoglobin VBG pH Oxyhemoglobin Sodium Potassium Chloride Carbon Dioxide BUN Creatinine Glucose POC Glucose 333 H 322 H 244 H Lactic Acid Calcium AST ALT Alkaline Phosphatase CK-MB (CK-2) CK-MB (CK-2) Rel Index Total Protein Albumin TSH Urine WBC (Auto) Salicylates 02/27/17 02/27/17 02/27/17 05:27 13:51 21:48 WBC RBC Hgb Hct MCV MCH RDW Plt Count Lymph % (Auto) [place] % (Auto) Eos % (Auto) Seg Neutrophils % Seg Neuts % (Manual) Lymphocytes % (Manual) Seg Neutrophils # Seg Neutrophils # Man Lymphocytes # (Manual) APTT POC ABG pH ABG pH POC ABG pCO2 POC ABG pO2 ABG pO2 ABG HCO3 ABG Base Excess ABG Hemoglobin VBG pH Oxyhemoglobin Sodium Potassium Chloride Carbon Dioxide BUN Creatinine Glucose POC Glucose 217 H 239 H 254 H Lactic Acid Calcium AST ALT Alkaline Phosphatase CK-MB (CK-2) CK-MB (CK-2) Rel Index Total Protein Albumin TSH Urine WBC (Auto) Salicylates 02/28/17 02/28/17 02/28/17 05:38 11:00 19:44 WBC RBC Hgb Hct MCV MCH RDW Plt Count Lymph % (Auto) [place] % (Auto) Eos % (Auto) Seg Neutrophils % Seg Neuts % (Manual) Lymphocytes % (Manual) Seg Neutrophils # Seg Neutrophils # Man Lymphocytes # (Manual) APTT POC ABG pH ABG pH POC ABG pCO2 POC ABG pO2 ABG pO2 ABG HCO3 ABG Base Excess ABG Hemoglobin VBG pH Oxyhemoglobin Sodium Potassium Chloride Carbon Dioxide BUN Creatinine Glucose POC Glucose 325 H 203 H 116 H Lactic Acid Calcium AST ALT Alkaline Phosphatase CK-MB (CK-2) CK-MB (CK-2) Rel Index Total Protein Albumin TSH Urine WBC (Auto) Salicylates 03/01/17 03/01/17 03/01/17 00:08 05:31 12:17 WBC RBC Hgb Hct MCV MCH RDW Plt Count Lymph % (Auto) [place] % (Auto) Eos % (Auto) Seg Neutrophils % Seg Neuts % (Manual) Lymphocytes % (Manual) Seg Neutrophils # Seg Neutrophils # Man Lymphocytes # (Manual) APTT POC ABG pH ABG pH POC ABG pCO2 POC ABG pO2 ABG pO2 ABG HCO3 ABG Base Excess ABG Hemoglobin VBG pH Oxyhemoglobin Sodium Potassium Chloride Carbon Dioxide BUN Creatinine Glucose POC Glucose 202 H 183 H 184 H Lactic Acid Calcium AST ALT Alkaline Phosphatase CK-MB (CK-2) CK-MB (CK-2) Rel Index Total Protein Albumin TSH Urine WBC (Auto) Salicylates 03/02/17 03/02/17 03/02/17 00:12 05:58 18:22 WBC RBC Hgb Hct MCV MCH RDW Plt Count Lymph % (Auto) [place] % (Auto) Eos % (Auto) Seg Neutrophils % Seg Neuts % (Manual) Lymphocytes % (Manual) Seg Neutrophils # Seg Neutrophils # Man Lymphocytes # (Manual) APTT POC ABG pH ABG pH POC ABG pCO2 POC ABG pO2 ABG pO2 ABG HCO3 ABG Base Excess ABG Hemoglobin VBG pH Oxyhemoglobin Sodium Potassium Chloride Carbon Dioxide BUN Creatinine Glucose POC Glucose 117 H 176 H 156 H Lactic Acid Calcium AST ALT Alkaline Phosphatase CK-MB (CK-2) CK-MB (CK-2) Rel Index Total Protein Albumin TSH Urine WBC (Auto) Salicylates 03/02/17 03/03/17 03/03/17 23:51 05:44 11:32 WBC RBC Hgb Hct MCV MCH RDW Plt Count Lymph % (Auto) [place] % (Auto) Eos % (Auto) Seg Neutrophils % Seg Neuts % (Manual) Lymphocytes % (Manual) Seg Neutrophils # Seg Neutrophils # Man Lymphocytes # (Manual) APTT POC ABG pH ABG pH POC ABG pCO2 POC ABG pO2 ABG pO2 ABG HCO3 ABG Base Excess ABG Hemoglobin VBG pH Oxyhemoglobin Sodium Potassium Chloride Carbon Dioxide BUN Creatinine Glucose POC Glucose 211 H 117 H 133 H Lactic Acid Calcium AST ALT Alkaline Phosphatase CK-MB (CK-2) CK-MB (CK-2) Rel Index Total Protein Albumin TSH Urine WBC (Auto) Salicylates 03/03/17 03/03/17 03/04/17 17:43 23:17 05:30 WBC RBC Hgb Hct MCV MCH RDW Plt Count Lymph % (Auto) [place] % (Auto) Eos % (Auto) Seg Neutrophils % Seg Neuts % (Manual) Lymphocytes % (Manual) Seg Neutrophils # Seg Neutrophils # Man Lymphocytes # (Manual) APTT POC ABG pH ABG pH POC ABG pCO2 POC ABG pO2 ABG pO2 ABG HCO3 ABG Base Excess ABG Hemoglobin VBG pH Oxyhemoglobin Sodium Potassium Chloride Carbon Dioxide BUN Creatinine Glucose POC Glucose 206 H 170 H 126 H Lactic Acid Calcium AST ALT Alkaline Phosphatase CK-MB (CK-2) CK-MB (CK-2) Rel Index Total Protein Albumin TSH Urine WBC (Auto) Salicylates 1103/04/17 03/05/17 12:17 17:27 05:20 WBC RBC Hgb Hct MCV MCH RDW Plt Count Lymph % (Auto) [place] % (Auto) Eos % (Auto) Seg Neutrophils % Seg Neuts % (Manual) Lymphocytes % (Manual) Seg Neutrophils # Seg Neutrophils # Man Lymphocytes # (Manual) APTT POC ABG pH ABG pH POC ABG pCO2 POC ABG pO2 ABG pO2 ABG HCO3 ABG Base Excess ABG Hemoglobin VBG pH Oxyhemoglobin Sodium Potassium Chloride Carbon Dioxide BUN Creatinine Glucose POC Glucose 135 H 121 H 185 H Lactic Acid Calcium AST ALT Alkaline Phosphatase CK-MB (CK-2) CK-MB (CK-2) Rel Index Total Protein Albumin TSH Urine WBC (Auto) Salicylates 03/05/17 03/06/17 03/06/17 11:50 11:52 17:34 WBC RBC Hgb Hct MCV MCH RDW Plt Count Lymph % (Auto) [place] % (Auto) Eos % (Auto) Seg Neutrophils % Seg Neuts % (Manual) Lymphocytes % (Manual) Seg Neutrophils # Seg Neutrophils # Man Lymphocytes # (Manual) APTT POC ABG pH ABG pH POC ABG pCO2 POC ABG pO2 ABG pO2 ABG HCO3 ABG Base Excess ABG Hemoglobin VBG pH Oxyhemoglobin Sodium Potassium Chloride Carbon Dioxide BUN Creatinine Glucose POC Glucose 116 H 133 H 181 H Lactic Acid Calcium AST ALT Alkaline Phosphatase CK-MB (CK-2) CK-MB (CK-2) Rel Index Total Protein Albumin TSH Urine WBC (Auto) Salicylates 03/07/17 03/07/17 03/07/17 05:21 11:36 17:49 WBC RBC Hgb Hct MCV MCH RDW Plt Count Lymph % (Auto) [place] % (Auto) Eos % (Auto) Seg Neutrophils % Seg Neuts % (Manual) Lymphocytes % (Manual) Seg Neutrophils # Seg Neutrophils # Man Lymphocytes # (Manual) APTT POC ABG pH ABG pH POC ABG pCO2 POC ABG pO2 ABG pO2 ABG HCO3 ABG Base Excess ABG Hemoglobin VBG pH Oxyhemoglobin Sodium Potassium Chloride Carbon Dioxide BUN Creatinine Glucose POC Glucose 159 H 137 H 158 H Lactic Acid Calcium AST ALT Alkaline Phosphatase CK-MB (CK-2) CK-MB (CK-2) Rel Index Total Protein Albumin TSH Urine WBC (Auto) Salicylates 03/08/17 03/08/1703/08/17 05:51 13:58 23:50 WBC RBC Hgb Hct MCV MCH RDW Plt Count Lymph % (Auto) [place] % (Auto) Eos % (Auto) Seg Neutrophils % Seg Neuts % (Manual) Lymphocytes % (Manual) Seg Neutrophils # Seg Neutrophils # Man Lymphocytes # (Manual) APTT POC ABG pH ABG pH POC ABG pCO2 POC ABG pO2 ABG pO2 ABG HCO3 ABG Base Excess ABG Hemoglobin VBG pH Oxyhemoglobin Sodium Potassium Chloride Carbon Dioxide BUN Creatinine Glucose POC Glucose 122 H 182 H 114 H Lactic Acid Calcium AST ALT Alkaline Phosphatase CK-MB (CK-2) CK-MB (CK-2) Rel Index Total Protein Albumin TSH Urine WBC (Auto) Salicylates 03/09/17 03/09/17 03/09/17 05:21 05:51 05:51 WBC RBC 3.61 L Hgb 9.5 L Hct 28.3 L MCV 79 L MCH 26 L RDW 17.8 H Plt Count Lymph % (Auto) [place] % (Auto) Eos % (Auto) Seg Neutrophils % Seg Neuts % (Manual) Lymphocytes % (Manual) Seg Neutrophils # Seg Neutrophils # Man Lymphocytes # (Manual) APTT POC ABG pH ABG pH POC ABG pCO2 POC ABG pO2 ABG pO2 ABG HCO3 ABG Base Excess ABG Hemoglobin VBG pH Oxyhemoglobin Sodium 134 L Potassium Chloride 95.5 L Carbon Dioxide BUN 33 H Creatinine 0.5 L Glucose 143 H POC Glucose 153 H Lactic Acid Calcium AST ALT Alkaline Phosphatase CK-MB (CK-2) CK-MB (CK-2) Rel Index Total Protein Albumin TSH Urine WBC (Auto) Salicylates 03/09/17 03/09/17 03/09/17 12:10 18:13 21:00 WBC RBC Hgb Hct MCV MCH RDW Plt Count Lymph % (Auto) [place] % (Auto) Eos % (Auto) Seg Neutrophils % Seg Neuts % (Manual) Lymphocytes % (Manual) Seg Neutrophils # Seg Neutrophils # Man Lymphocytes # (Manual) APTT POC ABG pH ABG pH POC ABG pCO2 POC ABG pO2 ABG pO2 ABG HCO3 ABG Base Excess ABG Hemoglobin VBG pH Oxyhemoglobin Sodium Potassium Chloride Carbon Dioxide BUN Creatinine Glucose POC Glucose 203 H 221 H 198 H Lactic Acid Calcium AST ALT Alkaline Phosphatase CK-MB (CK-2) CK-MB (CK-2) Rel Index Total Protein Albumin TSH Urine WBC (Auto) Salicylates 03/09/17 03/10/17 03/10/17 23:58 05:09 05:09 WBC RBC Hgb 10.3 L Hct 30.5 L MCV 78 L MCH 26 L RDW 17.9 H Plt Count Lymph % (Auto) [place] % (Auto) 10.0 H Eos % (Auto) 6.0 H Seg Neutrophils % Seg Neuts % (Manual) Lymphocytes % (Manual) Seg Neutrophils # Seg Neutrophils # Man Lymphocytes # (Manual) APTT POC ABG pH ABG pH POC ABG pCO2 POC ABG pO2 ABG pO2 ABG HCO3 ABG Base Excess ABG Hemoglobin VBG pH Oxyhemoglobin Sodium 132 L Potassium Chloride 92.2 L Carbon Dioxide BUN 33 H Creatinine 0.5 L Glucose 50 L POC Glucose 167 H Lactic Acid Calcium AST ALT Alkaline Phosphatase CK-MB (CK-2) CK-MB (CK-2) Rel Index Total Protein Albumin TSH Urine WBC (Auto) Salicylates 03/10/17 03/10/17 03/10/17 05:33 05:34 11:48 WBC RBC Hgb Hct MCV MCH RDW Plt Count Lymph % (Auto) [place] % (Auto) Eos % (Auto) Seg Neutrophils % Seg Neuts % (Manual) Lymphocytes % (Manual) Seg Neutrophils # Seg Neutrophils # Man Lymphocytes # (Manual) APTT POC ABG pH ABG pH POC ABG pCO2 POC ABG pO2 ABG pO2 ABG HCO3 ABG Base Excess ABG Hemoglobin VBG pH Oxyhemoglobin Sodium Potassium Chloride Carbon Dioxide BUN Creatinine Glucose POC Glucose 52 L 53 L 148 H Lactic Acid Calcium AST ALT Alkaline Phosphatase CK-MB (CK-2) CK-MB (CK-2) Rel Index Total Protein Albumin TSH Urine WBC (Auto) Salicylates 03/10/17 03/10/17 03/11/17 17:53 23:47 05:18 WBC RBC Hgb Hct MCV MCH RDW Plt Count Lymph % (Auto) [place] % (Auto) Eos % (Auto) Seg Neutrophils % Seg Neuts % (Manual) Lymphocytes % (Manual) Seg Neutrophils # Seg Neutrophils # Man Lymphocytes # (Manual) APTT POC ABG pH ABG pH POC ABG pCO2 POC ABG pO2 ABG pO2 ABG HCO3 ABG Base Excess ABG Hemoglobin VBG pH Oxyhemoglobin Sodium Potassium Chloride Carbon Dioxide BUN Creatinine Glucose POC Glucose 189 H 398 H 126 H Lactic Acid Calcium AST ALT Alkaline Phosphatase CK-MB (CK-2) CK-MB (CK-2) Rel Index Total Protein Albumin TSH Urine WBC (Auto) Salicylates 03/11/17 03/11/17 03/11/17 11:53 17:30 23:10 WBC RBC Hgb Hct MCV MCH RDW Plt Count Lymph % (Auto) [place] % (Auto) Eos % (Auto) Seg Neutrophils % Seg Neuts % (Manual) Lymphocytes % (Manual) Seg Neutrophils # Seg Neutrophils # Man Lymphocytes # (Manual) APTT POC ABG pH ABG pH POC ABG pCO2 POC ABG pO2 ABG pO2 ABG HCO3 ABG Base Excess ABG Hemoglobin VBG pH Oxyhemoglobin Sodium Potassium Chloride Carbon Dioxide BUN Creatinine Glucose POC Glucose 198 H 142 H 244 H Lactic Acid Calcium AST ALT Alkaline Phosphatase CK-MB (CK-2) CK-MB (CK-2) Rel Index Total Protein Albumin TSH Urine WBC (Auto) Salicylates 03/12/17 03/12/17 03/12/17 04:36 11:49 17:23 WBC RBC Hgb Hct MCV MCH RDW Plt Count Lymph % (Auto) [place] % (Auto) Eos % (Auto) Seg Neutrophils % Seg Neuts % (Manual) Lymphocytes % (Manual) Seg Neutrophils # Seg Neutrophils # Man Lymphocytes # (Manual) APTT POC ABG pH ABG pH POC ABG pCO2 POC ABG pO2 ABG pO2 ABG HCO3 ABG Base Excess ABG Hemoglobin VBG pH Oxyhemoglobin Sodium Potassium Chloride Carbon Dioxide BUN Creatinine Glucose POC Glucose 205 H 197 H 209 H Lactic Acid Calcium AST ALT Alkaline Phosphatase CK-MB (CK-2) CK-MB (CK-2) Rel Index Total Protein Albumin TSH Urine WBC (Auto) Salicylates 03/12/17 03/13/17 03/13/17 23:51 05:32 11:43 WBC RBC Hgb Hct MCV MCH RDW Plt Count Lymph % (Auto) [place] % (Auto) Eos % (Auto) Seg Neutrophils % Seg Neuts % (Manual) Lymphocytes % (Manual) Seg Neutrophils # Seg Neutrophils # Man Lymphocytes # (Manual) APTT POC ABG pH ABG pH POC ABG pCO2 POC ABG pO2 ABG pO2 ABG HCO3 ABG Base Excess ABG Hemoglobin VBG pH Oxyhemoglobin Sodium Potassium Chloride Carbon Dioxide BUN Creatinine Glucose POC Glucose 210 H 154 H 164 H Lactic Acid Calcium AST ALT Alkaline Phosphatase CK-MB (CK-2) CK-MB (CK-2) Rel Index Total Protein Albumin TSH Urine WBC (Auto) Salicylates 03/13/17 03/13/17 03/14/17 17:11 23:26 05:42 WBC RBC Hgb Hct MCV MCH RDW Plt Count Lymph % (Auto) [place] % (Auto) Eos % (Auto) Seg Neutrophils % Seg Neuts % (Manual) Lymphocytes % (Manual) Seg Neutrophils # Seg Neutrophils # Man Lymphocytes # (Manual) APTT POC ABG pH ABG pH POC ABG pCO2 POC ABG pO2 ABG pO2 ABG HCO3 ABG Base Excess ABG Hemoglobin VBG pH Oxyhemoglobin Sodium Potassium Chloride Carbon Dioxide BUN Creatinine Glucose POC Glucose 195 H 240 H 230 H Lactic Acid Calcium AST ALT Alkaline Phosphatase CK-MB (CK-2) CK-MB (CK-2) Rel Index Total Protein Albumin TSH Urine WBC (Auto) Salicylates 03/14/17 03/14/17 03/14/17 14:04 17:34 23:42 WBC RBC Hgb Hct MCV MCH RDW Plt Count Lymph % (Auto) [place] % (Auto) Eos % (Auto) Seg Neutrophils % Seg Neuts % (Manual) Lymphocytes % (Manual) Seg Neutrophils # Seg Neutrophils # Man Lymphocytes # (Manual) APTT POC ABG pH ABG pH POC ABG pCO2 POC ABG pO2 ABG pO2 ABG HCO3 ABG Base Excess ABG Hemoglobin VBG pH Oxyhemoglobin Sodium Potassium Chloride Carbon Dioxide BUN Creatinine Glucose POC Glucose 227 H 186 H 225 H Lactic Acid Calcium AST ALT Alkaline Phosphatase CK-MB (CK-2) CK-MB (CK-2) Rel Index Total Protein Albumin TSH Urine WBC (Auto) Salicylates 03/15/17 03/15/17 03/15/17 05:21 17:13 21:37 WBC RBC Hgb Hct MCV MCH RDW Plt Count Lymph % (Auto) [place] % (Auto) Eos % (Auto) Seg Neutrophils % Seg Neuts % (Manual) Lymphocytes % (Manual) Seg Neutrophils # Seg Neutrophils # Man Lymphocytes # (Manual) APTT POC ABG pH ABG pH POC ABG pCO2 POC ABG pO2 ABG pO2 ABG HCO3 ABG Base Excess ABG Hemoglobin VBG pH Oxyhemoglobin Sodium Potassium Chloride Carbon Dioxide BUN Creatinine Glucose POC Glucose 244 H 203 H 216 H Lactic Acid Calcium AST ALT Alkaline Phosphatase CK-MB (CK-2) CK-MB (CK-2) Rel Index Total Protein Albumin TSH Urine WBC (Auto) Salicylates 03/16/17 03/16/17 03/16/17 05:52 18:07 21:54 WBC RBC Hgb Hct MCV MCH RDW Plt Count Lymph % (Auto) [place] % (Auto) Eos % (Auto) Seg Neutrophils % Seg Neuts % (Manual) Lymphocytes % (Manual) Seg Neutrophils # Seg Neutrophils # Man Lymphocytes # (Manual) APTT POC ABG pH ABG pH POC ABG pCO2 POC ABG pO2 ABG pO2 ABG HCO3 ABG Base Excess ABG Hemoglobin VBG pH Oxyhemoglobin Sodium Potassium Chloride Carbon Dioxide BUN Creatinine Glucose POC Glucose 248 H 254 H 244 H Lactic Acid Calcium AST ALT Alkaline Phosphatase CK-MB (CK-2) CK-MB (CK-2) Rel Index Total Protein Albumin TSH Urine WBC (Auto) Salicylates 03/17/17 03/17/17 03/17/17 07:07 07:42 07:43 WBC RBC Hgb 9.7 L Hct 29.1 L MCV 78 L MCH 26 L RDW 17.4 H Plt Count Lymph % (Auto) [place] % (Auto) Eos % (Auto) Seg Neutrophils % Seg Neuts % (Manual) Lymphocytes % (Manual) Seg Neutrophils # Seg Neutrophils # Man Lymphocytes # (Manual) APTT POC ABG pH ABG pH POC ABG pCO2 POC ABG pO2 ABG pO2 ABG HCO3 ABG Base Excess ABG Hemoglobin VBG pH Oxyhemoglobin Sodium Potassium Chloride 96.6 L Carbon Dioxide BUN 30 H Creatinine 0.5 L Glucose 251 H POC Glucose 222 H Lactic Acid Calcium AST ALT Alkaline Phosphatase CK-MB (CK-2) CK-MB (CK-2) Rel Index Total Protein Albumin TSH Urine WBC (Auto) Salicylates 03/17/17 03/17/17 03/18/17 14:08 21:20 14:24 WBC RBC Hgb Hct MCV MCH RDW Plt Count Lymph % (Auto) [place] % (Auto) Eos % (Auto) Seg Neutrophils % Seg Neuts % (Manual) Lymphocytes % (Manual) Seg Neutrophils # Seg Neutrophils # Man Lymphocytes # (Manual) APTT POC ABG pH ABG pH POC ABG pCO2 POC ABG pO2 ABG pO2 ABG HCO3 ABG Base Excess ABG Hemoglobin VBG pH Oxyhemoglobin Sodium Potassium Chloride Carbon Dioxide BUN Creatinine Glucose POC Glucose 281 H 239 H 195 H Lactic Acid Calcium AST ALT Alkaline Phosphatase CK-MB (CK-2) CK-MB (CK-2) Rel Index Total Protein Albumin TSH Urine WBC (Auto) Salicylates 03/18/17 03/19/17 03/19/17 21:37 04:57 14:23 WBC RBC Hgb Hct MCV MCH RDW Plt Count Lymph % (Auto) [place] % (Auto) Eos % (Auto) Seg Neutrophils % Seg Neuts % (Manual) Lymphocytes % (Manual) Seg Neutrophils # Seg Neutrophils # Man Lymphocytes # (Manual) APTT POC ABG pH ABG pH POC ABG pCO2 POC ABG pO2 ABG pO2 ABG HCO3 ABG Base Excess ABG Hemoglobin VBG pH Oxyhemoglobin Sodium Potassium Chloride Carbon Dioxide BUN Creatinine Glucose POC Glucose 227 H 205 H 277 H Lactic Acid Calcium AST ALT Alkaline Phosphatase CK-MB (CK-2) CK-MB (CK-2) Rel Index Total Protein Albumin TSH Urine WBC (Auto) Salicylates 03/19/17 03/19/17 03/20/17 20:31 21:47 04:55 WBC RBC Hgb Hct MCV MCH RDW Plt Count Lymph % (Auto) [place] % (Auto) Eos % (Auto) Seg Neutrophils % Seg Neuts % (Manual) Lymphocytes % (Manual) Seg Neutrophils # Seg Neutrophils # Man Lymphocytes # (Manual) APTT POC ABG pH ABG pH POC ABG pCO2 POC ABG pO2 ABG pO2 ABG HCO3 ABG Base Excess ABG Hemoglobin VBG pH Oxyhemoglobin Sodium Potassium Chloride Carbon Dioxide BUN Creatinine Glucose POC Glucose 256 H 270 H 202 H Lactic Acid Calcium AST ALT Alkaline Phosphatase CK-MB (CK-2) CK-MB (CK-2) Rel Index Total Protein Albumin TSH Urine WBC (Auto) Salicylates 03/20/17 03/20/17 03/21/17 14:09 21:40 05:09 WBC RBC Hgb Hct MCV MCH RDW Plt Count Lymph % (Auto) [place] % (Auto) Eos % (Auto) Seg Neutrophils % Seg Neuts % (Manual) Lymphocytes % (Manual) Seg Neutrophils # Seg Neutrophils # Man Lymphocytes # (Manual) APTT POC ABG pH ABG pH POC ABG pCO2 POC ABG pO2 ABG pO2 ABG HCO3 ABG Base Excess ABG Hemoglobin VBG pH Oxyhemoglobin Sodium Potassium Chloride Carbon Dioxide BUN Creatinine Glucose POC Glucose 200 H 214 H 233 H Lactic Acid Calcium AST ALT Alkaline Phosphatase CK-MB (CK-2) CK-MB (CK-2) Rel Index Total Protein Albumin TSH Urine WBC (Auto) Salicylates 03/21/17 03/21/17 03/22/17 14:06 21:26 05:43 WBC RBC Hgb Hct MCV MCH RDW Plt Count Lymph % (Auto) [place] % (Auto) Eos % (Auto) Seg Neutrophils % Seg Neuts % (Manual) Lymphocytes % (Manual) Seg Neutrophils # Seg Neutrophils # Man Lymphocytes # (Manual) APTT POC ABG pH ABG pH POC ABG pCO2 POC ABG pO2 ABG pO2 ABG HCO3 ABG Base Excess ABG Hemoglobin VBG pH Oxyhemoglobin Sodium Potassium Chloride Carbon Dioxide BUN Creatinine Glucose POC Glucose 250 H 155 H 251 H Lactic Acid Calcium AST ALT Alkaline Phosphatase CK-MB (CK-2) CK-MB (CK-2) Rel Index Total Protein Albumin TSH Urine WBC (Auto) Salicylates 03/22/17 03/22/17 03/23/17 13:46 21:16 00:23 WBC RBC Hgb Hct MCV MCH RDW Plt Count Lymph % (Auto) [place] % (Auto) Eos % (Auto) Seg Neutrophils % Seg Neuts % (Manual) Lymphocytes % (Manual) Seg Neutrophils # Seg Neutrophils # Man Lymphocytes # (Manual) APTT POC ABG pH ABG pH POC ABG pCO2 POC ABG pO2 ABG pO2 ABG HCO3 ABG Base Excess ABG Hemoglobin VBG pH Oxyhemoglobin Sodium Potassium Chloride Carbon Dioxide BUN Creatinine Glucose POC Glucose 269 H 197 H 126 H Lactic Acid Calcium AST ALT Alkaline Phosphatase CK-MB (CK-2) CK-MB (CK-2) Rel Index Total Protein Albumin TSH Urine WBC (Auto) Salicylates 03/23/17 03/23/17 03/23/17 05:39 14:06 21:39 WBC RBC Hgb Hct MCV MCH RDW Plt Count Lymph % (Auto) [place] % (Auto) Eos % (Auto) Seg Neutrophils % Seg Neuts % (Manual) Lymphocytes % (Manual) Seg Neutrophils # Seg Neutrophils # Man Lymphocytes # (Manual) APTT POC ABG pH ABG pH POC ABG pCO2 POC ABG pO2 ABG pO2 ABG HCO3 ABG Base Excess ABG Hemoglobin VBG pH Oxyhemoglobin Sodium Potassium Chloride Carbon Dioxide BUN Creatinine Glucose POC Glucose 234 H 241 H 248 H Lactic Acid Calcium AST ALT Alkaline Phosphatase CK-MB (CK-2) CK-MB (CK-2) Rel Index Total Protein Albumin TSH Urine WBC (Auto) Salicylates 03/24/17 03/24/17 03/25/17 05:06 21:46 05:38 WBC RBC Hgb Hct MCV MCH RDW Plt Count Lymph % (Auto) [place] % (Auto) Eos % (Auto) Seg Neutrophils % Seg Neuts % (Manual) Lymphocytes % (Manual) Seg Neutrophils # Seg Neutrophils # Man Lymphocytes # (Manual) APTT POC ABG pH ABG pH POC ABG pCO2 POC ABG pO2 ABG pO2 ABG HCO3 ABG Base Excess ABG Hemoglobin VBG pH Oxyhemoglobin Sodium Potassium Chloride Carbon Dioxide BUN Creatinine Glucose POC Glucose 232 H 276 H 242 H Lactic Acid Calcium AST ALT Alkaline Phosphatase CK-MB (CK-2) CK-MB (CK-2) Rel Index Total Protein Albumin TSH Urine WBC (Auto) Salicylates 03/25/17 03/25/17 03/26/17 14:30 23:14 13:53 WBC RBC Hgb Hct MCV MCH RDW Plt Count Lymph % (Auto) [place] % (Auto) Eos % (Auto) Seg Neutrophils % Seg Neuts % (Manual) Lymphocytes % (Manual) Seg Neutrophils # Seg Neutrophils # Man Lymphocytes # (Manual) APTT POC ABG pH ABG pH POC ABG pCO2 POC ABG pO2 ABG pO2 ABG HCO3 ABG Base Excess ABG Hemoglobin VBG pH Oxyhemoglobin Sodium Potassium Chloride Carbon Dioxide BUN Creatinine Glucose POC Glucose 246 H 208 H 195 H Lactic Acid Calcium AST ALT Alkaline Phosphatase CK-MB (CK-2) CK-MB (CK-2) Rel Index Total Protein Albumin TSH Urine WBC (Auto) Salicylates 03/26/17 03/27/17 03/27/17 21:58 05:18 14:57 WBC RBC Hgb Hct MCV MCH RDW Plt Count Lymph % (Auto) [place] % (Auto) Eos % (Auto) Seg Neutrophils % Seg Neuts % (Manual) Lymphocytes % (Manual) Seg Neutrophils # Seg Neutrophils # Man Lymphocytes # (Manual) APTT POC ABG pH ABG pH POC ABG pCO2 POC ABG pO2 ABG pO2 ABG HCO3 ABG Base Excess ABG Hemoglobin VBG pH Oxyhemoglobin Sodium Potassium Chloride Carbon Dioxide BUN Creatinine Glucose POC Glucose 241 H 199 H 269 H Lactic Acid Calcium AST ALT Alkaline Phosphatase CK-MB (CK-2) CK-MB (CK-2) Rel Index Total Protein Albumin TSH Urine WBC (Auto) Salicylates 03/27/17 03/28/17 03/28/17 21:33 13:52 21:29 WBC RBC Hgb Hct MCV MCH RDW Plt Count Lymph % (Auto) [place] % (Auto) Eos % (Auto) Seg Neutrophils % Seg Neuts % (Manual) Lymphocytes % (Manual) Seg Neutrophils # Seg Neutrophils # Man Lymphocytes # (Manual) APTT POC ABG pH ABG pH POC ABG pCO2 POC ABG pO2 ABG pO2 ABG HCO3 ABG Base Excess ABG Hemoglobin VBG pH Oxyhemoglobin Sodium Potassium Chloride Carbon Dioxide BUN Creatinine Glucose POC Glucose 214 H 243 H 286 H Lactic Acid Calcium AST ALT Alkaline Phosphatase CK-MB (CK-2) CK-MB (CK-2) Rel Index Total Protein Albumin TSH Urine WBC (Auto) Salicylates 03/29/17 03/29/17 03/29/17 04:32 04:32 13:58 WBC RBC Hgb 10.6 L Hct 32.9 L MCV 78 L MCH 25 L RDW 17.6 H Plt Count Lymph % (Auto) 38.0 H [place] % (Auto) 9.7 H Eos % (Auto) Seg Neutrophils % Seg Neuts % (Manual) Lymphocytes % (Manual) Seg Neutrophils # Seg Neutrophils # Man Lymphocytes # (Manual) APTT POC ABG pH ABG pH POC ABG pCO2 POC ABG pO2 ABG pO2 ABG HCO3 ABG Base Excess ABG Hemoglobin VBG pH Oxyhemoglobin Sodium 132 L Potassium Chloride 94.0 L Carbon Dioxide BUN 28 H Creatinine 0.5 L Glucose 236 H POC Glucose 171 H Lactic Acid Calcium AST ALT 71 H Alkaline Phosphatase 391 H CK-MB (CK-2) CK-MB (CK-2) Rel Index Total Protein 8.3 H Albumin 2.9 L TSH Urine WBC (Auto) Salicylates 03/29/17 03/30/17 03/30/17 20:59 06:07 11:52 WBC RBC Hgb Hct MCV MCH RDW Plt Count Lymph % (Auto) [place] % (Auto) Eos % (Auto) Seg Neutrophils % Seg Neuts % (Manual) Lymphocytes % (Manual) Seg Neutrophils # Seg Neutrophils # Man Lymphocytes # (Manual) APTT POC ABG pH ABG pH POC ABG pCO2 POC ABG pO2 ABG pO2 ABG HCO3 ABG Base Excess ABG Hemoglobin VBG pH Oxyhemoglobin Sodium Potassium Chloride Carbon Dioxide BUN Creatinine Glucose POC Glucose 215 H 259 H 197 H Lactic Acid Calcium AST ALT Alkaline Phosphatase CK-MB (CK-2) CK-MB (CK-2) Rel Index Total Protein Albumin TSH Urine WBC (Auto) Salicylates 03/30/17 03/31/17 03/31/17 21:34 05:42 14:34 WBC RBC Hgb Hct MCV MCH RDW Plt Count Lymph % (Auto) [place] % (Auto) Eos % (Auto) Seg Neutrophils % Seg Neuts % (Manual) Lymphocytes % (Manual) Seg Neutrophils # Seg Neutrophils # Man Lymphocytes # (Manual) APTT POC ABG pH ABG pH POC ABG pCO2 POC ABG pO2 ABG pO2 ABG HCO3 ABG Base Excess ABG Hemoglobin VBG pH Oxyhemoglobin Sodium Potassium Chloride Carbon Dioxide BUN Creatinine Glucose POC Glucose 207 H 184 H 213 H Lactic Acid Calcium AST ALT Alkaline Phosphatase CK-MB (CK-2) CK-MB (CK-2) Rel Index Total Protein Albumin TSH Urine WBC (Auto) Salicylates 03/31/17 04/01/17 04/01/17 21:32 05:53 13:48 WBC RBC Hgb Hct MCV MCH RDW Plt Count Lymph % (Auto) [place] % (Auto) Eos % (Auto) Seg Neutrophils % Seg Neuts % (Manual) Lymphocytes % (Manual) Seg Neutrophils # Seg Neutrophils # Man Lymphocytes # (Manual) APTT POC ABG pH ABG pH POC ABG pCO2 POC ABG pO2 ABG pO2 ABG HCO3 ABG Base Excess ABG Hemoglobin VBG pH Oxyhemoglobin Sodium Potassium Chloride Carbon Dioxide BUN Creatinine Glucose POC Glucose 249 H 225 H 256 H Lactic Acid Calcium AST ALT Alkaline Phosphatase CK-MB (CK-2) CK-MB (CK-2) Rel Index Total Protein Albumin TSH Urine WBC (Auto) Salicylates 04/01/17 04/02/17 04/02/17 21:34 05:32 14:05 WBC RBC Hgb Hct MCV MCH RDW Plt Count Lymph % (Auto) [place] % (Auto) Eos % (Auto) Seg Neutrophils % Seg Neuts % (Manual) Lymphocytes % (Manual) Seg Neutrophils # Seg Neutrophils # Man Lymphocytes # (Manual) APTT POC ABG pH ABG pH POC ABG pCO2 POC ABG pO2 ABG pO2 ABG HCO3 ABG Base Excess ABG Hemoglobin VBG pH Oxyhemoglobin Sodium Potassium Chloride Carbon Dioxide BUN Creatinine Glucose POC Glucose 292 H 220 H 187 H Lactic Acid Calcium AST ALT Alkaline Phosphatase CK-MB (CK-2) CK-MB (CK-2) Rel Index Total Protein Albumin TSH Urine WBC (Auto) Salicylates 04/02/17 04/03/17 04/03/17 21:57 04:49 14:12 WBC RBC Hgb Hct MCV MCH RDW Plt Count Lymph % (Auto) [place] % (Auto) Eos % (Auto) Seg Neutrophils % Seg Neuts % (Manual) Lymphocytes % (Manual) Seg Neutrophils # Seg Neutrophils # Man Lymphocytes # (Manual) APTT POC ABG pH ABG pH POC ABG pCO2 POC ABG pO2 ABG pO2 ABG HCO3 ABG Base Excess ABG Hemoglobin VBG pH Oxyhemoglobin Sodium Potassium Chloride Carbon Dioxide BUN Creatinine Glucose POC Glucose 285 H 256 H 197 H Lactic Acid Calcium AST ALT Alkaline Phosphatase CK-MB (CK-2) CK-MB (CK-2) Rel Index Total Protein Albumin TSH Urine WBC (Auto) Salicylates 04/03/17 04/04/17 04/04/17 21:11 05:20 13:18 WBC RBC Hgb Hct MCV MCH RDW Plt Count Lymph % (Auto) [place] % (Auto) Eos % (Auto) Seg Neutrophils % Seg Neuts % (Manual) Lymphocytes % (Manual) Seg Neutrophils # Seg Neutrophils # Man Lymphocytes # (Manual) APTT POC ABG pH ABG pH POC ABG pCO2 POC ABG pO2 ABG pO2 ABG HCO3 ABG Base Excess ABG Hemoglobin VBG pH Oxyhemoglobin Sodium Potassium Chloride Carbon Dioxide BUN Creatinine Glucose POC Glucose 166 H 228 H 252 H Lactic Acid Calcium AST ALT Alkaline Phosphatase CK-MB (CK-2) CK-MB (CK-2) Rel Index Total Protein Albumin TSH Urine WBC (Auto) Salicylates 04/04/17 04/05/17 04/05/17 21:51 06:14 09:54 WBC RBC Hgb Hct MCV MCH RDW Plt Count Lymph % (Auto) [place] % (Auto) Eos % (Auto) Seg Neutrophils % Seg Neuts % (Manual) Lymphocytes % (Manual) Seg Neutrophils # Seg Neutrophils # Man Lymphocytes # (Manual) APTT POC ABG pH ABG pH POC ABG pCO2 POC ABG pO2 ABG pO2 ABG HCO3 ABG Base Excess ABG Hemoglobin VBG pH Oxyhemoglobin Sodium Potassium Chloride Carbon Dioxide BUN Creatinine Glucose POC Glucose 252 H 152 H 181 H Lactic Acid Calcium AST ALT Alkaline Phosphatase CK-MB (CK-2) CK-MB (CK-2) Rel Index Total Protein Albumin TSH Urine WBC (Auto) Salicylates 04/05/17 04/05/17 04/05/17 14:49 17:34 21:38 WBC RBC Hgb Hct MCV MCH RDW Plt Count Lymph % (Auto) [place] % (Auto) Eos % (Auto) Seg Neutrophils % Seg Neuts % (Manual) Lymphocytes % (Manual) Seg Neutrophils # Seg Neutrophils # Man Lymphocytes # (Manual) APTT POC ABG pH ABG pH POC ABG pCO2 POC ABG pO2 ABG pO2 ABG HCO3 ABG Base Excess ABG Hemoglobin VBG pH Oxyhemoglobin Sodium Potassium Chloride Carbon Dioxide BUN Creatinine Glucose POC Glucose 219 H 268 H 278 H Lactic Acid Calcium AST ALT Alkaline Phosphatase CK-MB (CK-2) CK-MB (CK-2) Rel Index Total Protein Albumin TSH Urine WBC (Auto) Salicylates 04/06/17 04/06/17 04/07/17 15:04 22:14 05:09 WBC RBC Hgb Hct MCV MCH RDW Plt Count Lymph % (Auto) [place] % (Auto) Eos % (Auto) Seg Neutrophils % Seg Neuts % (Manual) Lymphocytes % (Manual) Seg Neutrophils # Seg Neutrophils # Man Lymphocytes # (Manual) APTT POC ABG pH ABG pH POC ABG pCO2 POC ABG pO2 ABG pO2 ABG HCO3 ABG Base Excess ABG Hemoglobin VBG pH Oxyhemoglobin Sodium Potassium Chloride Carbon Dioxide BUN Creatinine Glucose POC Glucose 285 H 106 H 334 H Lactic Acid Calcium AST ALT Alkaline Phosphatase CK-MB (CK-2) CK-MB (CK-2) Rel Index Total Protein Albumin TSH Urine WBC (Auto) Salicylates 04/07/17 04/07/17 04/08/17 14:45 21:48 05:28 WBC RBC Hgb Hct MCV MCH RDW Plt Count Lymph % (Auto) [place] % (Auto) Eos % (Auto) Seg Neutrophils % Seg Neuts % (Manual) Lymphocytes % (Manual) Seg Neutrophils # Seg Neutrophils # Man Lymphocytes # (Manual) APTT POC ABG pH ABG pH POC ABG pCO2 POC ABG pO2 ABG pO2 ABG HCO3 ABG Base Excess ABG Hemoglobin VBG pH Oxyhemoglobin Sodium Potassium Chloride Carbon Dioxide BUN Creatinine Glucose POC Glucose 173 H 304 H 314 H Lactic Acid Calcium AST ALT Alkaline Phosphatase CK-MB (CK-2) CK-MB (CK-2) Rel Index Total Protein Albumin TSH Urine WBC (Auto) Salicylates 04/08/17 04/08/17 04/08/17 15:57 16:17 22:21 WBC RBC Hgb Hct MCV MCH RDW Plt Count Lymph % (Auto) [place] % (Auto) Eos % (Auto) Seg Neutrophils % Seg Neuts % (Manual) Lymphocytes % (Manual) Seg Neutrophils # Seg Neutrophils # Man Lymphocytes # (Manual) APTT POC ABG pH ABG pH POC ABG pCO2 POC ABG pO2 ABG pO2 ABG HCO3 ABG Base Excess ABG Hemoglobin VBG pH Oxyhemoglobin Sodium Potassium Chloride Carbon Dioxide BUN Creatinine Glucose POC Glucose 356 H 337 H 323 H Lactic Acid Calcium AST ALT Alkaline Phosphatase CK-MB (CK-2) CK-MB (CK-2) Rel Index Total Protein Albumin TSH Urine WBC (Auto) Salicylates 04/09/17 04/09/17 04/09/17 06:19 15:30 21:52 WBC RBC Hgb Hct MCV MCH RDW Plt Count Lymph % (Auto) [place] % (Auto) Eos % (Auto) Seg Neutrophils % Seg Neuts % (Manual) Lymphocytes % (Manual) Seg Neutrophils # Seg Neutrophils # Man Lymphocytes # (Manual) APTT POC ABG pH ABG pH POC ABG pCO2 POC ABG pO2 ABG pO2 ABG HCO3 ABG Base Excess ABG Hemoglobin VBG pH Oxyhemoglobin Sodium Potassium Chloride Carbon Dioxide BUN Creatinine Glucose POC Glucose 340 H 332 H 341 H Lactic Acid Calcium AST ALT Alkaline Phosphatase CK-MB (CK-2) CK-MB (CK-2) Rel Index Total Protein Albumin TSH Urine WBC (Auto) Salicylates 04/10/17 04/10/17 04/10/17 01:53 05:33 17:40 WBC RBC Hgb Hct MCV MCH RDW Plt Count Lymph % (Auto) [place] % (Auto) Eos % (Auto) Seg Neutrophils % Seg Neuts % (Manual) Lymphocytes % (Manual) Seg Neutrophils # Seg Neutrophils # Man Lymphocytes # (Manual) APTT POC ABG pH ABG pH POC ABG pCO2 POC ABG pO2 ABG pO2 ABG HCO3 ABG Base Excess ABG Hemoglobin VBG pH Oxyhemoglobin Sodium Potassium Chloride Carbon Dioxide BUN Creatinine Glucose POC Glucose 261 H 277 H 304 H Lactic Acid Calcium AST ALT Alkaline Phosphatase CK-MB (CK-2) CK-MB (CK-2) Rel Index Total Protein Albumin TSH Urine WBC (Auto) Salicylates 04/10/17 04/11/17 04/11/17 21:29 05:28 14:02 WBC RBC Hgb Hct MCV MCH RDW Plt Count Lymph % (Auto) [place] % (Auto) Eos % (Auto) Seg Neutrophils % Seg Neuts % (Manual) Lymphocytes % (Manual) Seg Neutrophils # Seg Neutrophils # Man Lymphocytes # (Manual) APTT POC ABG pH ABG pH POC ABG pCO2 POC ABG pO2 ABG pO2 ABG HCO3 ABG Base Excess ABG Hemoglobin VBG pH Oxyhemoglobin Sodium Potassium Chloride Carbon Dioxide BUN Creatinine Glucose POC Glucose 361 H 204 H 236 H Lactic Acid Calcium AST ALT Alkaline Phosphatase CK-MB (CK-2) CK-MB (CK-2) Rel Index Total Protein Albumin TSH Urine WBC (Auto) Salicylates 04/11/17 04/12/17 04/12/17 21:43 05:00 11:53 WBC RBC Hgb Hct MCV MCH RDW Plt Count Lymph % (Auto) [place] % (Auto) Eos % (Auto) Seg Neutrophils % Seg Neuts % (Manual) Lymphocytes % (Manual) Seg Neutrophils # Seg Neutrophils # Man Lymphocytes # (Manual) APTT POC ABG pH ABG pH POC ABG pCO2 POC ABG pO2 ABG pO2 ABG HCO3 ABG Base Excess ABG Hemoglobin VBG pH Oxyhemoglobin Sodium Potassium Chloride Carbon Dioxide BUN Creatinine Glucose POC Glucose 287 H 294 H 265 H Lactic Acid Calcium AST ALT Alkaline Phosphatase CK-MB (CK-2) CK-MB (CK-2) Rel Index Total Protein Albumin TSH Urine WBC (Auto) Salicylates 04/12/17 04/12/17 04/13/17 21:21 23:44 06:05 WBC RBC Hgb Hct MCV MCH RDW Plt Count Lymph % (Auto) [place] % (Auto) Eos % (Auto) Seg Neutrophils % Seg Neuts % (Manual) Lymphocytes % (Manual) Seg Neutrophils # Seg Neutrophils # Man Lymphocytes # (Manual) APTT POC ABG pH ABG pH POC ABG pCO2 POC ABG pO2 ABG pO2 ABG HCO3 ABG Base Excess ABG Hemoglobin VBG pH Oxyhemoglobin Sodium Potassium Chloride Carbon Dioxide BUN Creatinine Glucose POC Glucose 289 H 348 H 326 H Lactic Acid Calcium AST ALT Alkaline Phosphatase CK-MB (CK-2) CK-MB (CK-2) Rel Index Total Protein Albumin TSH Urine WBC (Auto) Salicylates 04/13/17 04/13/17 04/14/17 13:54 21:15 05:49 WBC RBC Hgb Hct MCV MCH RDW Plt Count Lymph % (Auto) [place] % (Auto) Eos % (Auto) Seg Neutrophils % Seg Neuts % (Manual) Lymphocytes % (Manual) Seg Neutrophils # Seg Neutrophils # Man Lymphocytes # (Manual) APTT POC ABG pH ABG pH POC ABG pCO2 POC ABG pO2 ABG pO2 ABG HCO3 ABG Base Excess ABG Hemoglobin VBG pH Oxyhemoglobin Sodium Potassium Chloride Carbon Dioxide BUN Creatinine Glucose POC Glucose 326 H 263 H 319 H Lactic Acid Calcium AST ALT Alkaline Phosphatase CK-MB (CK-2) CK-MB (CK-2) Rel Index Total Protein Albumin TSH Urine WBC (Auto) Salicylates 04/14/17 04/14/17 04/15/17 13:26 23:13 14:24 WBC RBC Hgb Hct MCV MCH RDW Plt Count Lymph % (Auto) [place] % (Auto) Eos % (Auto) Seg Neutrophils % Seg Neuts % (Manual) Lymphocytes % (Manual) Seg Neutrophils # Seg Neutrophils # Man Lymphocytes # (Manual) APTT POC ABG pH ABG pH POC ABG pCO2 POC ABG pO2 ABG pO2 ABG HCO3 ABG Base Excess ABG Hemoglobin VBG pH Oxyhemoglobin Sodium Potassium Chloride Carbon Dioxide BUN Creatinine Glucose POC Glucose 207 H 365 H 308 H Lactic Acid Calcium AST ALT Alkaline Phosphatase CK-MB (CK-2) CK-MB (CK-2) Rel Index Total Protein Albumin TSH Urine WBC (Auto) Salicylates 04/15/17 04/15/17 04/15/17 21:00 22:18 23:12 WBC RBC Hgb Hct MCV MCH RDW Plt Count Lymph % (Auto) [place] % (Auto) Eos % (Auto) Seg Neutrophils % Seg Neuts % (Manual) Lymphocytes % (Manual) Seg Neutrophils # Seg Neutrophils # Man Lymphocytes # (Manual) APTT POC ABG pH ABG pH POC ABG pCO2 POC ABG pO2 ABG pO2 ABG HCO3 ABG Base Excess ABG Hemoglobin VBG pH Oxyhemoglobin Sodium Potassium Chloride Carbon Dioxide BUN Creatinine Glucose POC Glucose 407 H 287 H 325 H Lactic Acid Calcium AST ALT Alkaline Phosphatase CK-MB (CK-2) CK-MB (CK-2) Rel Index Total Protein Albumin TSH Urine WBC (Auto) Salicylates 04/16/17 04/16/17 04/16/17 05:30 10:07 14:26 WBC RBC Hgb Hct MCV MCH RDW Plt Count Lymph % (Auto) [place] % (Auto) Eos % (Auto) Seg Neutrophils % Seg Neuts % (Manual) Lymphocytes % (Manual) Seg Neutrophils # Seg Neutrophils # Man Lymphocytes # (Manual) APTT POC ABG pH ABG pH POC ABG pCO2 POC ABG pO2 ABG pO2 ABG HCO3 ABG Base Excess ABG Hemoglobin VBG pH Oxyhemoglobin Sodium Potassium Chloride Carbon Dioxide BUN Creatinine Glucose POC Glucose 304 H 217 H 344 H Lactic Acid Calcium AST ALT Alkaline Phosphatase CK-MB (CK-2) CK-MB (CK-2) Rel Index Total Protein Albumin TSH Urine WBC (Auto) Salicylates 04/16/17 04/17/17 04/17/17 21:25 05:12 14:19 WBC RBC Hgb Hct MCV MCH RDW Plt Count Lymph % (Auto) [place] % (Auto) Eos % (Auto) Seg Neutrophils % Seg Neuts % (Manual) Lymphocytes % (Manual) Seg Neutrophils # Seg Neutrophils # Man Lymphocytes # (Manual) APTT POC ABG pH ABG pH POC ABG pCO2 POC ABG pO2 ABG pO2 ABG HCO3 ABG Base Excess ABG Hemoglobin VBG pH Oxyhemoglobin Sodium Potassium Chloride Carbon Dioxide BUN Creatinine Glucose POC Glucose 305 H 233 H 324 H Lactic Acid Calcium AST ALT Alkaline Phosphatase CK-MB (CK-2) CK-MB (CK-2) Rel Index Total Protein Albumin TSH Urine WBC (Auto) Salicylates 04/17/17 04/18/17 04/18/17 21:42 06:21 14:08 WBC RBC Hgb Hct MCV MCH RDW Plt Count Lymph % (Auto) [place] % (Auto) Eos % (Auto) Seg Neutrophils % Seg Neuts % (Manual) Lymphocytes % (Manual) Seg Neutrophils # Seg Neutrophils # Man Lymphocytes # (Manual) APTT POC ABG pH ABG pH POC ABG pCO2 POC ABG pO2 ABG pO2 ABG HCO3 ABG Base Excess ABG Hemoglobin VBG pH Oxyhemoglobin Sodium Potassium Chloride Carbon Dioxide BUN Creatinine Glucose POC Glucose 270 H 308 H 290 H Lactic Acid Calcium AST ALT Alkaline Phosphatase CK-MB (CK-2) CK-MB (CK-2) Rel Index Total Protein Albumin TSH Urine WBC (Auto) Salicylates 04/18/17 04/19/17 04/19/17 21:50 05:20 13:59 WBC RBC Hgb Hct MCV MCH RDW Plt Count Lymph % (Auto) [place] % (Auto) Eos % (Auto) Seg Neutrophils % Seg Neuts % (Manual) Lymphocytes % (Manual) Seg Neutrophils # Seg Neutrophils # Man Lymphocytes # (Manual) APTT POC ABG pH ABG pH POC ABG pCO2 POC ABG pO2 ABG pO2 ABG HCO3 ABG Base Excess ABG Hemoglobin VBG pH Oxyhemoglobin Sodium Potassium Chloride Carbon Dioxide BUN Creatinine Glucose POC Glucose 167 H 372 H 321 H Lactic Acid Calcium AST ALT Alkaline Phosphatase CK-MB (CK-2) CK-MB (CK-2) Rel Index Total Protein Albumin TSH Urine WBC (Auto) Salicylates 04/19/17 21:16 WBC RBC Hgb Hct MCV MCH RDW Plt Count Lymph % (Auto) [place] % (Auto) Eos % (Auto) Seg Neutrophils % Seg Neuts % (Manual) Lymphocytes % (Manual) Seg Neutrophils # Seg Neutrophils # Man Lymphocytes # (Manual) APTT POC ABG pH ABG pH POC ABG pCO2 POC ABG pO2 ABG pO2 ABG HCO3 ABG Base Excess ABG Hemoglobin VBG pH Oxyhemoglobin Sodium Potassium Chloride Carbon Dioxide BUN Creatinine Glucose POC Glucose 182 H Lactic Acid Calcium AST ALT Alkaline Phosphatase CK-MB (CK-2) CK-MB (CK-2) Rel Index Total Protein Albumin TSH Urine WBC (Auto) Salicylates
[2017-04-20] MEDS: HEPARIN SUB-Q SCH ×2 (09:29→22:04)
[2017-04-20] MEDS: PEPCID PO SCH ×2 (09:30→22:05)
[2017-04-20] MEDS: LEVEMIR (NF) SUB-Q SCH (11:45)
[2017-04-20] MEDS: HumuLIN R SUB-Q SCH ×2 (15:16→15:18)
[2017-04-21] MEDS: HumuLIN R SUB-Q SCH ×3 (00:06→13:48)
[2017-04-21] MEDS: SYNTHROID PO SCH (06:50)
[2017-04-21] MEDS: LEVEMIR (NF) SUB-Q SCH (09:58)
[2017-04-21] MEDS: HEPARIN SUB-Q SCH ×2 (09:58→23:38)
--- NOTE | 2017-04-21 10:01 | Progress Note ---
Assessment and Plan acute respiratory failure secondary to metabolic event, prolonged vent support Hypoglycemia/hypothermia -> suspect due to too much insulin Hypothyroidism; doubt myxedema coma with normal free T4 UTI/SIRS.Resolved Metabolic encephalopathy. Residual vegetative state,sever.No improvement Fever Rec: Monitor fever morning SBT qd GI/DVT PPx/TFs No changes, per chart/notes; waiting from administrative notification regarding assigning guardianship,care proxy Comfort care, no escalation of care. Poor prognosis,unchanged status CCT 31 min Subjective Date of service: 04/21/17 Principal diagnosis: Acute respiratory failure,encephalopathy Interval history: No change ,intubated. Objective Vital Signs - 12hr 04/20/17 04/20/17 04/20/17 22:00 22:01 23:23 Temperature 99.8 F H Pulse Rate 87 76 Respiratory 15 Rate Blood Pressure 109/69 O2 Sat by Pulse 99 Oximetry 04/20/17 04/21/17 04/21/17 23:55 00:01 02:01 Temperature Pulse Rate 84 84 87 Respiratory 16 15 Rate Blood Pressure 109/69 115/80 115/80 O2 Sat by Pulse 100 93 Oximetry 04/21/17 04/21/17 04/21/17 03:42 04:00 06:01 Temperature 98.1 F Pulse Rate 92 H 90 87 Respiratory 15 13 Rate Blood Pressure 115/80 118/82 118/82 O2 Sat by Pulse 97 Oximetry 04/21/17 08:00 Temperature Pulse Rate 85 Respiratory Rate Blood Pressure 102/67 O2 Sat by Pulse 98 Oximetry Constitutional: no acute distress, alert Eyes: non-icteric ENT: oropharynx moist, other (ETT in position) Neck: supple, no JVD Effort: normal Ascultation: Bilateral: clear, diminished breath sounds Cardiovascular: regular rate and rhythm (no mrg) Gastrointestinal: normoactive bowel sounds, soft, non-tender, non-distended Integumentary: normal Extremities: no cyanosis, no edema, pink and warm Neurologic: pupils equal and round, other (not following commands,mild response to pain) Psychiatric: other (unable to obtain) CBC and BMP: 03/29/17 04:32 03/29/17 04:32 ABG, PT/INR, D-dimer: ABG POC ABG pH 7.442 (7.35-7.45) 01/31/17 18:55 ABG pH 7.420 pH Units (7.350-7.450) 01/17/17 04:35 POC ABG pCO2 32.8 (35-45) L 01/31/17 18:55 ABG pCO2 34.5 mm Hg 01/17/17 04:35 POC ABG pO2 82 (80-105) 01/31/17 18:55 ABG pO2 160.3 mm Hg (80.0-90.0) H 01/17/17 04:35 POC ABG HCO3 22.4 01/31/17 18:55 POC ABG Total CO2 23 01/31/17 18:55 POC ABG O2 Sat 97 01/31/17 18:55 ABG O2 Saturation 99.0 % (95.0-99.0) 01/17/17 04:35 PT/INR, D-dimer PT 14.1 Sec. (12.2-14.9) 01/17/17 04:10 INR 1.04 (0.87-1.13) 01/17/17 04:10 Abnormal lab findings: Abnormal Labs 01/09/17 01/09/17 01/09/17 10:16 10:16 10:16 WBC RBC Hgb 9.7 L Hct 28.4 L MCV 76 L MCH 26 L RDW 17.2 H Plt Count 448 H Lymph % (Auto) [place] % (Auto) Eos % (Auto) Seg Neutrophils % 79.5 H Seg Neuts % (Manual) Lymphocytes % (Manual) Seg Neutrophils # Seg Neutrophils # Man Lymphocytes # (Manual) APTT 39.6 H POC ABG pH ABG pH POC ABG pCO2 POC ABG pO2 ABG pO2 ABG HCO3 ABG Base Excess ABG Hemoglobin VBG pH Oxyhemoglobin Sodium 132 L Potassium Chloride 96.7 L Carbon Dioxide 21 L BUN 34 H Creatinine Glucose POC Glucose Lactic Acid Calcium 8.3 L AST ALT Alkaline Phosphatase 151 H CK-MB (CK-2) 7.1 H CK-MB (CK-2) Rel Index 5.2 H Total Protein Albumin 3.3 L TSH Urine WBC (Auto) Salicylates 01/09/17 01/09/17 01/09/17 10:16 10:16 10:16 WBC RBC Hgb Hct MCV MCH RDW Plt Count Lymph % (Auto) [place] % (Auto) Eos % (Auto) Seg Neutrophils % Seg Neuts % (Manual) Lymphocytes % (Manual) Seg Neutrophils # Seg Neutrophils # Man Lymphocytes # (Manual) APTT POC ABG pH ABG pH POC ABG pCO2 POC ABG pO2 ABG pO2 ABG HCO3 ABG Base Excess ABG Hemoglobin VBG pH 7.284 L Oxyhemoglobin Sodium Potassium Chloride Carbon Dioxide BUN Creatinine Glucose POC Glucose Lactic Acid Calcium AST ALT Alkaline Phosphatase CK-MB (CK-2) CK-MB (CK-2) Rel Index Total Protein Albumin TSH 52.800 H Urine WBC (Auto) Salicylates < 0.3 L 01/09/17 01/09/17 01/09/17 10:23 11:14 12:49 WBC RBC Hgb Hct MCV MCH RDW Plt Count Lymph % (Auto) [place] % (Auto) Eos % (Auto) Seg Neutrophils % Seg Neuts % (Manual) Lymphocytes % (Manual) Seg Neutrophils # Seg Neutrophils # Man Lymphocytes # (Manual) APTT POC ABG pH ABG pH POC ABG pCO2 POC ABG pO2 643 H ABG pO2 ABG HCO3 ABG Base Excess ABG Hemoglobin VBG pH Oxyhemoglobin Sodium Potassium Chloride Carbon Dioxide BUN Creatinine Glucose POC Glucose < 40 L Lactic Acid Calcium AST ALT Alkaline Phosphatase CK-MB (CK-2) CK-MB (CK-2) Rel Index Total Protein Albumin TSH Urine WBC (Auto) 61.0 H Salicylates 01/09/17 01/09/17 01/09/17 13:13 14:21 15:09 WBC RBC Hgb Hct MCV MCH RDW Plt Count Lymph % (Auto) [place] % (Auto) Eos % (Auto) Seg Neutrophils % Seg Neuts % (Manual) Lymphocytes % (Manual) Seg Neutrophils # Seg Neutrophils # Man Lymphocytes # (Manual) APTT POC ABG pH ABG pH POC ABG pCO2 POC ABG pO2 ABG pO2 ABG HCO3 ABG Base Excess ABG Hemoglobin VBG pH Oxyhemoglobin Sodium Potassium Chloride Carbon Dioxide BUN Creatinine Glucose POC Glucose 128 H 65 L 120 H Lactic Acid Calcium AST ALT Alkaline Phosphatase CK-MB (CK-2) CK-MB (CK-2) Rel Index Total Protein Albumin TSH Urine WBC (Auto) Salicylates 01/09/17 01/09/17 01/10/17 16:28 17:14 04:30 WBC 24.1 H RBC 3.38 L Hgb 8.5 L Hct 26.0 L MCV 77 L MCH 25 L RDW 17.9 H Plt Count 474 H Lymph % (Auto) [place] % (Auto) Eos % (Auto) Seg Neutrophils % Seg Neuts % (Manual) 88.0 H Lymphocytes % (Manual) 4.0 L Seg Neutrophils # Seg Neutrophils # Man 21.2 H Lymphocytes # (Manual) 1.0 L APTT POC ABG pH ABG pH POC ABG pCO2 POC ABG pO2 ABG pO2 ABG HCO3 ABG Base Excess ABG Hemoglobin VBG pH Oxyhemoglobin Sodium Potassium Chloride Carbon Dioxide BUN Creatinine Glucose POC Glucose 44 L 112 H Lactic Acid Calcium AST ALT Alkaline Phosphatase CK-MB (CK-2) CK-MB (CK-2) Rel Index Total Protein Albumin TSH Urine WBC (Auto) Salicylates 01/10/17 01/10/17 01/10/17 04:30 05:41 05:45 WBC RBC Hgb Hct MCV MCH RDW Plt Count Lymph % (Auto) [place] % (Auto) Eos % (Auto) Seg Neutrophils % Seg Neuts % (Manual) Lymphocytes % (Manual) Seg Neutrophils # Seg Neutrophils # Man Lymphocytes # (Manual) APTT POC ABG pH ABG pH POC ABG pCO2 26.6 L POC ABG pO2 207 H ABG pO2 ABG HCO3 ABG Base Excess ABG Hemoglobin VBG pH Oxyhemoglobin Sodium Potassium Chloride Carbon Dioxide 17 L BUN 27 H Creatinine Glucose POC Glucose 68 L Lactic Acid Calcium 7.5 L AST ALT Alkaline Phosphatase CK-MB (CK-2) CK-MB (CK-2) Rel Index Total Protein Albumin TSH Urine WBC (Auto) Salicylates 01/10/17 01/10/17 01/10/17 07:47 10:50 13:41 WBC RBC Hgb Hct MCV MCH RDW Plt Count Lymph % (Auto) [place] % (Auto) Eos % (Auto) Seg Neutrophils % Seg Neuts % (Manual) Lymphocytes % (Manual) Seg Neutrophils # Seg Neutrophils # Man Lymphocytes # (Manual) APTT POC ABG pH ABG pH POC ABG pCO2 POC ABG pO2 ABG pO2 ABG HCO3 ABG Base Excess ABG Hemoglobin VBG pH Oxyhemoglobin Sodium Potassium Chloride Carbon Dioxide BUN Creatinine Glucose POC Glucose 148 H 165 H 114 H Lactic Acid Calcium AST ALT Alkaline Phosphatase CK-MB (CK-2) CK-MB (CK-2) Rel Index Total Protein Albumin TSH Urine WBC (Auto) Salicylates 01/10/17 01/10/17 01/10/17 20:20 21:39 23:24 WBC RBC Hgb Hct MCV MCH RDW Plt Count Lymph % (Auto) [place] % (Auto) Eos % (Auto) Seg Neutrophils % Seg Neuts % (Manual) Lymphocytes % (Manual) Seg Neutrophils # Seg Neutrophils # Man Lymphocytes # (Manual) APTT POC ABG pH ABG pH POC ABG pCO2 POC ABG pO2 ABG pO2 ABG HCO3 ABG Base Excess ABG Hemoglobin VBG pH Oxyhemoglobin Sodium Potassium Chloride Carbon Dioxide BUN Creatinine Glucose POC Glucose 150 H 175 H 155 H Lactic Acid Calcium AST ALT Alkaline Phosphatase CK-MB (CK-2) CK-MB (CK-2) Rel Index Total Protein Albumin TSH Urine WBC (Auto) Salicylates 01/11/17 01/11/17 01/11/17 00:19 04:06 05:20 WBC 15.2 H RBC 3.40 L Hgb 8.9 L Hct 26.3 L MCV 78 L MCH 26 L RDW 18.6 H Plt Count 462 H Lymph % (Auto) 13.2 L [place] % (Auto) Eos % (Auto) Seg Neutrophils % 80.8 H Seg Neuts % (Manual) Lymphocytes % (Manual) Seg Neutrophils # 12.3 H Seg Neutrophils # Man Lymphocytes # (Manual) APTT POC ABG pH 7.463 H ABG pH POC ABG pCO2 26.2 L POC ABG pO2 185 H ABG pO2 ABG HCO3 ABG Base Excess ABG Hemoglobin VBG pH Oxyhemoglobin Sodium Potassium Chloride Carbon Dioxide BUN Creatinine Glucose POC Glucose 163 H Lactic Acid Calcium AST ALT Alkaline Phosphatase CK-MB (CK-2) CK-MB (CK-2) Rel Index Total Protein Albumin TSH Urine WBC (Auto) Salicylates 01/11/17 01/11/17 01/11/17 05:20 06:21 07:57 WBC RBC Hgb Hct MCV MCH RDW Plt Count Lymph % (Auto) [place] % (Auto) Eos % (Auto) Seg Neutrophils % Seg Neuts % (Manual) Lymphocytes % (Manual) Seg Neutrophils # Seg Neutrophils # Man Lymphocytes # (Manual) APTT POC ABG pH ABG pH POC ABG pCO2 POC ABG pO2 ABG pO2 ABG HCO3 ABG Base Excess ABG Hemoglobin VBG pH Oxyhemoglobin Sodium Potassium 3.4 L Chloride 111.5 H Carbon Dioxide 17 L BUN Creatinine Glucose 147 H POC Glucose 139 H 188 H Lactic Acid Calcium 8.0 L AST ALT Alkaline Phosphatase CK-MB (CK-2) CK-MB (CK-2) Rel Index Total Protein Albumin TSH Urine WBC (Auto) Salicylates 01/11/17 01/11/17 01/11/17 11:46 16:50 23:15 WBC RBC Hgb Hct MCV MCH RDW Plt Count Lymph % (Auto) [place] % (Auto) Eos % (Auto) Seg Neutrophils % Seg Neuts % (Manual) Lymphocytes % (Manual) Seg Neutrophils # Seg Neutrophils # Man Lymphocytes # (Manual) APTT POC ABG pH ABG pH POC ABG pCO2 POC ABG pO2 ABG pO2 ABG HCO3 ABG Base Excess ABG Hemoglobin VBG pH Oxyhemoglobin Sodium Potassium Chloride Carbon Dioxide BUN Creatinine Glucose POC Glucose 199 H 235 H 155 H Lactic Acid Calcium AST ALT Alkaline Phosphatase CK-MB (CK-2) CK-MB (CK-2) Rel Index Total Protein Albumin TSH Urine WBC (Auto) Salicylates 01/12/17 01/12/17 01/12/17 05:02 06:56 14:50 WBC RBC Hgb Hct MCV MCH RDW Plt Count Lymph % (Auto) [place] % (Auto) Eos % (Auto) Seg Neutrophils % Seg Neuts % (Manual) Lymphocytes % (Manual) Seg Neutrophils # Seg Neutrophils # Man Lymphocytes # (Manual) APTT POC ABG pH ABG pH POC ABG pCO2 28.0 L POC ABG pO2 178 H ABG pO2 ABG HCO3 ABG Base Excess ABG Hemoglobin VBG pH Oxyhemoglobin Sodium Potassium Chloride Carbon Dioxide BUN Creatinine Glucose POC Glucose 119 H 164 H Lactic Acid Calcium AST ALT Alkaline Phosphatase CK-MB (CK-2) CK-MB (CK-2) Rel Index Total Protein Albumin TSH Urine WBC (Auto) Salicylates 01/13/17 01/13/17 01/13/17 03:37 03:37 04:26 WBC RBC 3.61 L Hgb 9.3 L Hct 28.0 L MCV 78 L MCH 26 L RDW 18.2 H Plt Count Lymph % (Auto) [place] % (Auto) Eos % (Auto) Seg Neutrophils % Seg Neuts % (Manual) Lymphocytes % (Manual) Seg Neutrophils # Seg Neutrophils # Man Lymphocytes # (Manual) APTT POC ABG pH 7.485 H ABG pH POC ABG pCO2 25.4 L POC ABG pO2 73 L ABG pO2 ABG HCO3 ABG Base Excess ABG Hemoglobin VBG pH Oxyhemoglobin Sodium Potassium Chloride 112.4 H Carbon Dioxide 19 L BUN Creatinine Glucose 118 H POC Glucose Lactic Acid Calcium 8.0 L AST ALT Alkaline Phosphatase CK-MB (CK-2) CK-MB (CK-2) Rel Index Total Protein Albumin TSH Urine WBC (Auto) Salicylates 01/13/17 01/13/17 01/13/17 06:15 11:50 17:31 WBC RBC Hgb Hct MCV MCH RDW Plt Count Lymph % (Auto) [place] % (Auto) Eos % (Auto) Seg Neutrophils % Seg Neuts % (Manual) Lymphocytes % (Manual) Seg Neutrophils # Seg Neutrophils # Man Lymphocytes # (Manual) APTT POC ABG pH ABG pH POC ABG pCO2 POC ABG pO2 ABG pO2 ABG HCO3 ABG Base Excess ABG Hemoglobin VBG pH Oxyhemoglobin Sodium Potassium Chloride Carbon Dioxide BUN Creatinine Glucose POC Glucose 116 H 171 H 203 H Lactic Acid Calcium AST ALT Alkaline Phosphatase CK-MB (CK-2) CK-MB (CK-2) Rel Index Total Protein Albumin TSH Urine WBC (Auto) Salicylates 01/14/17 01/14/17 01/14/17 00:02 04:50 04:50 WBC RBC 3.32 L Hgb 8.5 L Hct 26.1 L MCV 79 L MCH 26 L RDW 18.2 H Plt Count Lymph % (Auto) [place] % (Auto) 9.0 H Eos % (Auto) Seg Neutrophils % Seg Neuts % (Manual) Lymphocytes % (Manual) Seg Neutrophils # Seg Neutrophils # Man Lymphocytes # (Manual) APTT POC ABG pH ABG pH POC ABG pCO2 POC ABG pO2 ABG pO2 ABG HCO3 ABG Base Excess ABG Hemoglobin VBG pH Oxyhemoglobin Sodium Potassium Chloride 112.5 H Carbon Dioxide BUN Creatinine Glucose 149 H POC Glucose 157 H Lactic Acid Calcium 8.1 L AST ALT Alkaline Phosphatase CK-MB (CK-2) CK-MB (CK-2) Rel Index Total Protein Albumin TSH Urine WBC (Auto) Salicylates 01/14/17 01/14/17 01/14/17 05:10 11:27 14:07 WBC RBC Hgb Hct MCV MCH RDW Plt Count Lymph % (Auto) [place] % (Auto) Eos % (Auto) Seg Neutrophils % Seg Neuts % (Manual) Lymphocytes % (Manual) Seg Neutrophils # Seg Neutrophils # Man Lymphocytes # (Manual) APTT POC ABG pH ABG pH POC ABG pCO2 POC ABG pO2 ABG pO2 ABG HCO3 ABG Base Excess ABG Hemoglobin VBG pH Oxyhemoglobin Sodium Potassium Chloride Carbon Dioxide BUN Creatinine Glucose POC Glucose 176 H 147 H Lactic Acid Calcium AST ALT Alkaline Phosphatase CK-MB (CK-2) CK-MB (CK-2) Rel Index Total Protein Albumin TSH Urine WBC (Auto) 53.0 H Salicylates 01/14/17 01/15/17 01/15/17 16:52 00:04 05:26 WBC RBC Hgb Hct MCV MCH RDW Plt Count Lymph % (Auto) [place] % (Auto) Eos % (Auto) Seg Neutrophils % Seg Neuts % (Manual) Lymphocytes % (Manual) Seg Neutrophils # Seg Neutrophils # Man Lymphocytes # (Manual) APTT POC ABG pH ABG pH POC ABG pCO2 POC ABG pO2 ABG pO2 ABG HCO3 ABG Base Excess ABG Hemoglobin VBG pH Oxyhemoglobin Sodium Potassium Chloride Carbon Dioxide BUN Creatinine Glucose POC Glucose 131 H 193 H 215 H Lactic Acid Calcium AST ALT Alkaline Phosphatase CK-MB (CK-2) CK-MB (CK-2) Rel Index Total Protein Albumin TSH Urine WBC (Auto) Salicylates 01/15/17 01/15/17 01/15/17 11:49 17:47 21:33 WBC RBC Hgb Hct MCV MCH RDW Plt Count Lymph % (Auto) [place] % (Auto) Eos % (Auto) Seg Neutrophils % Seg Neuts % (Manual) Lymphocytes % (Manual) Seg Neutrophils # Seg Neutrophils # Man Lymphocytes # (Manual) APTT POC ABG pH ABG pH POC ABG pCO2 POC ABG pO2 ABG pO2 ABG HCO3 ABG Base Excess ABG Hemoglobin VBG pH Oxyhemoglobin Sodium Potassium Chloride Carbon Dioxide BUN Creatinine Glucose POC Glucose 121 H 211 H 275 H Lactic Acid Calcium AST ALT Alkaline Phosphatase CK-MB (CK-2) CK-MB (CK-2) Rel Index Total Protein Albumin TSH Urine WBC (Auto) Salicylates 01/16/17 01/16/17 01/16/17 04:30 05:28 13:45 WBC RBC Hgb Hct MCV MCH RDW Plt Count Lymph % (Auto) [place] % (Auto) Eos % (Auto) Seg Neutrophils % Seg Neuts % (Manual) Lymphocytes % (Manual) Seg Neutrophils # Seg Neutrophils # Man Lymphocytes # (Manual) APTT POC ABG pH ABG pH 7.457 H POC ABG pCO2 POC ABG pO2 ABG pO2 55.1 L ABG HCO3 19.4 L ABG Base Excess -4.0 L ABG Hemoglobin 6.8 L VBG pH Oxyhemoglobin 94.9 L Sodium Potassium Chloride Carbon Dioxide BUN Creatinine Glucose POC Glucose 271 H 236 H Lactic Acid Calcium AST ALT Alkaline Phosphatase CK-MB (CK-2) CK-MB (CK-2) Rel Index Total Protein Albumin TSH Urine WBC (Auto) Salicylates 01/16/17 01/17/17 01/17/17 21:39 04:10 04:10 WBC 4.4 L RBC 2.98 L Hgb 7.7 L Hct 23.3 L MCV 78 L MCH 26 L RDW 18.1 H Plt Count Lymph % (Auto) [place] % (Auto) Eos % (Auto) Seg Neutrophils % Seg Neuts % (Manual) Lymphocytes % (Manual) Seg Neutrophils # Seg Neutrophils # Man Lymphocytes # (Manual) APTT POC ABG pH ABG pH POC ABG pCO2 POC ABG pO2 ABG pO2 ABG HCO3 ABG Base Excess ABG Hemoglobin VBG pH Oxyhemoglobin Sodium Potassium 3.3 L Chloride 108.7 H Carbon Dioxide 20 L BUN 8 L Creatinine Glucose 202 H POC Glucose 258 H Lactic Acid Calcium 7.6 L AST ALT Alkaline Phosphatase CK-MB (CK-2) CK-MB (CK-2) Rel Index Total Protein Albumin TSH Urine WBC (Auto) Salicylates 01/17/17 01/17/17 01/17/17 04:35 12:23 16:01 WBC RBC Hgb Hct MCV MCH RDW Plt Count Lymph % (Auto) [place] % (Auto) Eos % (Auto) Seg Neutrophils % Seg Neuts % (Manual) Lymphocytes % (Manual) Seg Neutrophils # Seg Neutrophils # Man Lymphocytes # (Manual) APTT POC ABG pH ABG pH POC ABG pCO2 POC ABG pO2 ABG pO2 160.3 H ABG HCO3 ABG Base Excess -2.3 L ABG Hemoglobin 7.9 L VBG pH Oxyhemoglobin Sodium Potassium Chloride Carbon Dioxide BUN Creatinine Glucose POC Glucose 321 H 239 H Lactic Acid Calcium AST ALT Alkaline Phosphatase CK-MB (CK-2) CK-MB (CK-2) Rel Index Total Protein Albumin TSH Urine WBC (Auto) Salicylates 01/18/17 01/18/17 01/18/17 05:07 12:09 17:54 WBC RBC Hgb Hct MCV MCH RDW Plt Count Lymph % (Auto) [place] % (Auto) Eos % (Auto) Seg Neutrophils % Seg Neuts % (Manual) Lymphocytes % (Manual) Seg Neutrophils # Seg Neutrophils # Man Lymphocytes # (Manual) APTT POC ABG pH ABG pH POC ABG pCO2 POC ABG pO2 ABG pO2 ABG HCO3 ABG Base Excess ABG Hemoglobin VBG pH Oxyhemoglobin Sodium Potassium Chloride Carbon Dioxide BUN Creatinine Glucose POC Glucose 155 H 203 H 132 H Lactic Acid Calcium AST ALT Alkaline Phosphatase CK-MB (CK-2) CK-MB (CK-2) Rel Index Total Protein Albumin TSH Urine WBC (Auto) Salicylates 01/18/17 01/19/17 01/19/17 23:43 04:28 12:11 WBC RBC Hgb Hct MCV MCH RDW Plt Count Lymph % (Auto) [place] % (Auto) Eos % (Auto) Seg Neutrophils % Seg Neuts % (Manual) Lymphocytes % (Manual) Seg Neutrophils # Seg Neutrophils # Man Lymphocytes # (Manual) APTT POC ABG pH ABG pH POC ABG pCO2 POC ABG pO2 ABG pO2 ABG HCO3 ABG Base Excess ABG Hemoglobin VBG pH Oxyhemoglobin Sodium Potassium Chloride Carbon Dioxide BUN Creatinine Glucose POC Glucose 125 H 182 H 153 H Lactic Acid Calcium AST ALT Alkaline Phosphatase CK-MB (CK-2) CK-MB (CK-2) Rel Index Total Protein Albumin TSH Urine WBC (Auto) Salicylates 01/19/17 01/20/17 01/20/17 17:23 00:12 05:44 WBC RBC Hgb Hct MCV MCH RDW Plt Count Lymph % (Auto) [place] % (Auto) Eos % (Auto) Seg Neutrophils % Seg Neuts % (Manual) Lymphocytes % (Manual) Seg Neutrophils # Seg Neutrophils # Man Lymphocytes # (Manual) APTT POC ABG pH ABG pH POC ABG pCO2 POC ABG pO2 ABG pO2 ABG HCO3 ABG Base Excess ABG Hemoglobin VBG pH Oxyhemoglobin Sodium Potassium Chloride Carbon Dioxide BUN Creatinine Glucose POC Glucose 66 L 139 H 176 H Lactic Acid Calcium AST ALT Alkaline Phosphatase CK-MB (CK-2) CK-MB (CK-2) Rel Index Total Protein Albumin TSH Urine WBC (Auto) Salicylates 01/20/17 01/20/17 01/20/17 11:48 17:42 23:43 WBC RBC Hgb Hct MCV MCH RDW Plt Count Lymph % (Auto) [place] % (Auto) Eos % (Auto) Seg Neutrophils % Seg Neuts % (Manual) Lymphocytes % (Manual) Seg Neutrophils # Seg Neutrophils # Man Lymphocytes # (Manual) APTT POC ABG pH ABG pH POC ABG pCO2 POC ABG pO2 ABG pO2 ABG HCO3 ABG Base Excess ABG Hemoglobin VBG pH Oxyhemoglobin Sodium Potassium Chloride Carbon Dioxide BUN Creatinine Glucose POC Glucose 218 H 132 H 178 H Lactic Acid Calcium AST ALT Alkaline Phosphatase CK-MB (CK-2) CK-MB (CK-2) Rel Index Total Protein Albumin TSH Urine WBC (Auto) Salicylates 01/21/17 01/21/17 01/21/17 05:34 11:17 23:37 WBC RBC Hgb Hct MCV MCH RDW Plt Count Lymph % (Auto) [place] % (Auto) Eos % (Auto) Seg Neutrophils % Seg Neuts % (Manual) Lymphocytes % (Manual) Seg Neutrophils # Seg Neutrophils # Man Lymphocytes # (Manual) APTT POC ABG pH ABG pH POC ABG pCO2 POC ABG pO2 ABG pO2 ABG HCO3 ABG Base Excess ABG Hemoglobin VBG pH Oxyhemoglobin Sodium Potassium Chloride Carbon Dioxide BUN Creatinine Glucose POC Glucose 106 H 213 H 140 H Lactic Acid Calcium AST ALT Alkaline Phosphatase CK-MB (CK-2) CK-MB (CK-2) Rel Index Total Protein Albumin TSH Urine WBC (Auto) Salicylates 01/22/17 01/22/17 01/22/17 04:00 04:00 04:58 WBC RBC 3.26 L Hgb 8.3 L Hct 25.5 L MCV 78 L MCH 25 L RDW 17.9 H Plt Count Lymph % (Auto) [place] % (Auto) 7.9 H Eos % (Auto) 6.2 H Seg Neutrophils % Seg Neuts % (Manual) Lymphocytes % (Manual) Seg Neutrophils # Seg Neutrophils # Man Lymphocytes # (Manual) APTT POC ABG pH ABG pH POC ABG pCO2 POC ABG pO2 ABG pO2 ABG HCO3 ABG Base Excess ABG Hemoglobin VBG pH Oxyhemoglobin Sodium Potassium Chloride 95.5 L Carbon Dioxide 31 H D BUN Creatinine Glucose 134 H POC Glucose 146 H Lactic Acid Calcium AST 44 H ALT Alkaline Phosphatase 379 H CK-MB (CK-2) CK-MB (CK-2) Rel Index Total Protein Albumin 2.7 L TSH Urine WBC (Auto) Salicylates 01/22/17 01/22/17 01/22/17 12:12 18:12 23:39 WBC RBC Hgb Hct MCV MCH RDW Plt Count Lymph % (Auto) [place] % (Auto) Eos % (Auto) Seg Neutrophils % Seg Neuts % (Manual) Lymphocytes % (Manual) Seg Neutrophils # Seg Neutrophils # Man Lymphocytes # (Manual) APTT POC ABG pH ABG pH POC ABG pCO2 POC ABG pO2 ABG pO2 ABG HCO3 ABG Base Excess ABG Hemoglobin VBG pH Oxyhemoglobin Sodium Potassium Chloride Carbon Dioxide BUN Creatinine Glucose POC Glucose 255 H 182 H 134 H Lactic Acid Calcium AST ALT Alkaline Phosphatase CK-MB (CK-2) CK-MB (CK-2) Rel Index Total Protein Albumin TSH Urine WBC (Auto) Salicylates 01/23/17 01/23/17 01/23/17 04:43 12:12 17:36 WBC RBC Hgb Hct MCV MCH RDW Plt Count Lymph % (Auto) [place] % (Auto) Eos % (Auto) Seg Neutrophils % Seg Neuts % (Manual) Lymphocytes % (Manual) Seg Neutrophils # Seg Neutrophils # Man Lymphocytes # (Manual) APTT POC ABG pH ABG pH POC ABG pCO2 POC ABG pO2 ABG pO2 ABG HCO3 ABG Base Excess ABG Hemoglobin VBG pH Oxyhemoglobin Sodium Potassium Chloride Carbon Dioxide BUN Creatinine Glucose POC Glucose 218 H 128 H 156 H Lactic Acid Calcium AST ALT Alkaline Phosphatase CK-MB (CK-2) CK-MB (CK-2) Rel Index Total Protein Albumin TSH Urine WBC (Auto) Salicylates 01/24/17 01/24/17 01/24/17 00:08 05:16 11:40 WBC RBC Hgb Hct MCV MCH RDW Plt Count Lymph % (Auto) [place] % (Auto) Eos % (Auto) Seg Neutrophils % Seg Neuts % (Manual) Lymphocytes % (Manual) Seg Neutrophils # Seg Neutrophils # Man Lymphocytes # (Manual) APTT POC ABG pH ABG pH POC ABG pCO2 POC ABG pO2 ABG pO2 ABG HCO3 ABG Base Excess ABG Hemoglobin VBG pH Oxyhemoglobin Sodium Potassium Chloride Carbon Dioxide BUN Creatinine Glucose POC Glucose 129 H 169 H 187 H Lactic Acid Calcium AST ALT Alkaline Phosphatase CK-MB (CK-2) CK-MB (CK-2) Rel Index Total Protein Albumin TSH Urine WBC (Auto) Salicylates 01/24/17 01/24/17 01/25/17 17:43 23:23 04:56 WBC RBC Hgb Hct MCV MCH RDW Plt Count Lymph % (Auto) [place] % (Auto) Eos % (Auto) Seg Neutrophils % Seg Neuts % (Manual) Lymphocytes % (Manual) Seg Neutrophils # Seg Neutrophils # Man Lymphocytes # (Manual) APTT POC ABG pH ABG pH POC ABG pCO2 POC ABG pO2 ABG pO2 ABG HCO3 ABG Base Excess ABG Hemoglobin VBG pH Oxyhemoglobin Sodium Potassium Chloride Carbon Dioxide BUN Creatinine Glucose POC Glucose 215 H 222 H 210 H Lactic Acid Calcium AST ALT Alkaline Phosphatase CK-MB (CK-2) CK-MB (CK-2) Rel Index Total Protein Albumin TSH Urine WBC (Auto) Salicylates 01/25/17 01/25/17 01/26/17 11:52 17:37 00:02 WBC RBC Hgb Hct MCV MCH RDW Plt Count Lymph % (Auto) [place] % (Auto) Eos % (Auto) Seg Neutrophils % Seg Neuts % (Manual) Lymphocytes % (Manual) Seg Neutrophils # Seg Neutrophils # Man Lymphocytes # (Manual) APTT POC ABG pH ABG pH POC ABG pCO2 POC ABG pO2 ABG pO2 ABG HCO3 ABG Base Excess ABG Hemoglobin VBG pH Oxyhemoglobin Sodium Potassium Chloride Carbon Dioxide BUN Creatinine Glucose POC Glucose 284 H 218 H 192 H Lactic Acid Calcium AST ALT Alkaline Phosphatase CK-MB (CK-2) CK-MB (CK-2) Rel Index Total Protein Albumin TSH Urine WBC (Auto) Salicylates 01/26/17 01/26/17 01/26/17 05:33 12:17 17:50 WBC RBC Hgb Hct MCV MCH RDW Plt Count Lymph % (Auto) [place] % (Auto) Eos % (Auto) Seg Neutrophils % Seg Neuts % (Manual) Lymphocytes % (Manual) Seg Neutrophils # Seg Neutrophils # Man Lymphocytes # (Manual) APTT POC ABG pH ABG pH POC ABG pCO2 POC ABG pO2 ABG pO2 ABG HCO3 ABG Base Excess ABG Hemoglobin VBG pH Oxyhemoglobin Sodium Potassium Chloride Carbon Dioxide BUN Creatinine Glucose POC Glucose 199 H 227 H 229 H Lactic Acid Calcium AST ALT Alkaline Phosphatase CK-MB (CK-2) CK-MB (CK-2) Rel Index Total Protein Albumin TSH Urine WBC (Auto) Salicylates 01/26/17 01/27/17 01/27/17 23:57 05:31 11:42 WBC RBC Hgb Hct MCV MCH RDW Plt Count Lymph % (Auto) [place] % (Auto) Eos % (Auto) Seg Neutrophils % Seg Neuts % (Manual) Lymphocytes % (Manual) Seg Neutrophils # Seg Neutrophils # Man Lymphocytes # (Manual) APTT POC ABG pH ABG pH POC ABG pCO2 POC ABG pO2 ABG pO2 ABG HCO3 ABG Base Excess ABG Hemoglobin VBG pH Oxyhemoglobin Sodium Potassium Chloride Carbon Dioxide BUN Creatinine Glucose POC Glucose 186 H 285 H 260 H Lactic Acid Calcium AST ALT Alkaline Phosphatase CK-MB (CK-2) CK-MB (CK-2) Rel Index Total Protein Albumin TSH Urine WBC (Auto) Salicylates 01/27/17 01/27/17 01/27/17 17:47 23:58 Unknown WBC 12.1 H RBC 3.28 L Hgb 8.5 L Hct 25.5 L MCV 78 L MCH 26 L RDW 16.8 H Plt Count 601 H Lymph % (Auto) [place] % (Auto) Eos % (Auto) Seg Neutrophils % Seg Neuts % (Manual) Lymphocytes % (Manual) Seg Neutrophils # Seg Neutrophils # Man Lymphocytes # (Manual) APTT POC ABG pH ABG pH POC ABG pCO2 POC ABG pO2 ABG pO2 ABG HCO3 ABG Base Excess ABG Hemoglobin VBG pH Oxyhemoglobin Sodium Potassium Chloride Carbon Dioxide BUN Creatinine Glucose POC Glucose 329 H 225 H Lactic Acid Calcium AST ALT Alkaline Phosphatase CK-MB (CK-2) CK-MB (CK-2) Rel Index Total Protein Albumin TSH Urine WBC (Auto) Salicylates 01/27/17 01/28/17 01/28/17 Unknown 03:44 03:44 WBC RBC 3.14 L Hgb 8.2 L Hct 24.1 L MCV 77 L MCH 26 L RDW 16.9 H Plt Count 567 H Lymph % (Auto) [place] % (Auto) Eos % (Auto) Seg Neutrophils % Seg Neuts % (Manual) Lymphocytes % (Manual) Seg Neutrophils # Seg Neutrophils # Man Lymphocytes # (Manual) APTT POC ABG pH ABG pH POC ABG pCO2 POC ABG pO2 ABG pO2 ABG HCO3 ABG Base Excess ABG Hemoglobin VBG pH Oxyhemoglobin Sodium 128 L Potassium 5.4 H Chloride 87.5 L Carbon Dioxide BUN 44 H 42 H Creatinine Glucose 250 H 128 H POC Glucose Lactic Acid Calcium AST ALT Alkaline Phosphatase CK-MB (CK-2) CK-MB (CK-2) Rel Index Total Protein Albumin TSH Urine WBC (Auto) Salicylates 01/28/17 01/28/17 01/28/17 11:43 16:47 17:52 WBC RBC Hgb Hct MCV MCH RDW Plt Count Lymph % (Auto) [place] % (Auto) Eos % (Auto) Seg Neutrophils % Seg Neuts % (Manual) Lymphocytes % (Manual) Seg Neutrophils # Seg Neutrophils # Man Lymphocytes # (Manual) APTT POC ABG pH ABG pH POC ABG pCO2 POC ABG pO2 ABG pO2 ABG HCO3 ABG Base Excess ABG Hemoglobin VBG pH Oxyhemoglobin Sodium Potassium Chloride Carbon Dioxide BUN Creatinine Glucose POC Glucose 351 H 249 H Lactic Acid Calcium AST ALT Alkaline Phosphatase CK-MB (CK-2) CK-MB (CK-2) Rel Index Total Protein Albumin TSH Urine WBC (Auto) > 182.0 H Salicylates 01/29/17 01/29/17 01/29/17 05:25 05:25 09:32 WBC 13.6 H RBC 3.25 L Hgb 8.3 L Hct 25.1 L MCV 77 L MCH 26 L RDW 16.8 H Plt Count 514 H Lymph % (Auto) [place] % (Auto) Eos % (Auto) Seg Neutrophils % Seg Neuts % (Manual) Lymphocytes % (Manual) Seg Neutrophils # Seg Neutrophils # Man Lymphocytes # (Manual) APTT POC ABG pH ABG pH POC ABG pCO2 POC ABG pO2 ABG pO2 ABG HCO3 ABG Base Excess ABG Hemoglobin VBG pH Oxyhemoglobin Sodium Potassium Chloride 97.8 L Carbon Dioxide BUN 34 H Creatinine Glucose 222 H POC Glucose Lactic Acid 2.50 H* Calcium AST ALT Alkaline Phosphatase CK-MB (CK-2) CK-MB (CK-2) Rel Index Total Protein Albumin TSH Urine WBC (Auto) Salicylates 01/29/17 01/29/17 01/29/17 11:56 18:11 23:55 WBC RBC Hgb Hct MCV MCH RDW Plt Count Lymph % (Auto) [place] % (Auto) Eos % (Auto) Seg Neutrophils % Seg Neuts % (Manual) Lymphocytes % (Manual) Seg Neutrophils # Seg Neutrophils # Man Lymphocytes # (Manual) APTT POC ABG pH ABG pH POC ABG pCO2 POC ABG pO2 ABG pO2 ABG HCO3 ABG Base Excess ABG Hemoglobin VBG pH Oxyhemoglobin Sodium Potassium Chloride Carbon Dioxide BUN Creatinine Glucose POC Glucose 261 H 215 H 176 H Lactic Acid Calcium AST ALT Alkaline Phosphatase CK-MB (CK-2) CK-MB (CK-2) Rel Index Total Protein Albumin TSH Urine WBC (Auto) Salicylates 01/30/17 01/30/17 01/30/17 05:31 05:31 05:34 WBC 15.2 H RBC 3.09 L Hgb 7.9 L Hct 23.9 L MCV 77 L MCH 26 L RDW 16.9 H Plt Count 569 H Lymph % (Auto) [place] % (Auto) Eos % (Auto) Seg Neutrophils % Seg Neuts % (Manual) Lymphocytes % (Manual) Seg Neutrophils # Seg Neutrophils # Man Lymphocytes # (Manual) APTT POC ABG pH ABG pH POC ABG pCO2 POC ABG pO2 ABG pO2 ABG HCO3 ABG Base Excess ABG Hemoglobin VBG pH Oxyhemoglobin Sodium Potassium Chloride Carbon Dioxide BUN 24 H Creatinine Glucose 235 H POC Glucose 243 H Lactic Acid Calcium AST ALT Alkaline Phosphatase CK-MB (CK-2) CK-MB (CK-2) Rel Index Total Protein Albumin TSH Urine WBC (Auto) Salicylates 01/30/17 01/30/17 01/30/17 11:38 17:58 23:29 WBC RBC Hgb Hct MCV MCH RDW Plt Count Lymph % (Auto) [place] % (Auto) Eos % (Auto) Seg Neutrophils % Seg Neuts % (Manual) Lymphocytes % (Manual) Seg Neutrophils # Seg Neutrophils # Man Lymphocytes # (Manual) APTT POC ABG pH ABG pH POC ABG pCO2 POC ABG pO2 ABG pO2 ABG HCO3 ABG Base Excess ABG Hemoglobin VBG pH Oxyhemoglobin Sodium Potassium Chloride Carbon Dioxide BUN Creatinine Glucose POC Glucose 298 H 208 H 245 H Lactic Acid Calcium AST ALT Alkaline Phosphatase CK-MB (CK-2) CK-MB (CK-2) Rel Index Total Protein Albumin TSH Urine WBC (Auto) Salicylates 01/31/17 01/31/17 01/31/17 04:39 04:39 05:57 WBC 11.4 H RBC 3.22 L Hgb 8.2 L Hct 24.9 L MCV 78 L MCH 25 L RDW 17.2 H Plt Count 576 H Lymph % (Auto) [place] % (Auto) Eos % (Auto) Seg Neutrophils % Seg Neuts % (Manual) Lymphocytes % (Manual) Seg Neutrophils # Seg Neutrophils # Man Lymphocytes # (Manual) APTT POC ABG pH ABG pH POC ABG pCO2 POC ABG pO2 ABG pO2 ABG HCO3 ABG Base Excess ABG Hemoglobin VBG pH Oxyhemoglobin Sodium Potassium Chloride Carbon Dioxide BUN Creatinine 0.7 L Glucose 223 H POC Glucose 264 H Lactic Acid Calcium AST ALT Alkaline Phosphatase CK-MB (CK-2) CK-MB (CK-2) Rel Index Total Protein Albumin TSH Urine WBC (Auto) Salicylates 01/31/17 01/31/17 01/31/17 12:23 17:41 18:55 WBC RBC Hgb Hct MCV MCH RDW Plt Count Lymph % (Auto) [place] % (Auto) Eos % (Auto) Seg Neutrophils % Seg Neuts % (Manual) Lymphocytes % (Manual) Seg Neutrophils # Seg Neutrophils # Man Lymphocytes # (Manual) APTT POC ABG pH ABG pH POC ABG pCO2 32.8 L POC ABG pO2 ABG pO2 ABG HCO3 ABG Base Excess ABG Hemoglobin VBG pH Oxyhemoglobin Sodium Potassium Chloride Carbon Dioxide BUN Creatinine Glucose POC Glucose 252 H 208 H Lactic Acid Calcium AST ALT Alkaline Phosphatase CK-MB (CK-2) CK-MB (CK-2) Rel Index Total Protein Albumin TSH Urine WBC (Auto) Salicylates 01/31/17 02/01/17 02/01/17 22:59 03:38 03:38 WBC RBC 2.81 L Hgb 7.4 L Hct 22.1 L MCV 79 L MCH 27 L RDW 17.0 H Plt Count 540 H Lymph % (Auto) [place] % (Auto) Eos % (Auto) Seg Neutrophils % Seg Neuts % (Manual) Lymphocytes % (Manual) Seg Neutrophils # Seg Neutrophils # Man Lymphocytes # (Manual) APTT POC ABG pH ABG pH POC ABG pCO2 POC ABG pO2 ABG pO2 ABG HCO3 ABG Base Excess ABG Hemoglobin VBG pH Oxyhemoglobin Sodium Potassium Chloride Carbon Dioxide 21 L BUN Creatinine 0.7 L Glucose POC Glucose 40 L Lactic Acid Calcium AST ALT Alkaline Phosphatase CK-MB (CK-2) CK-MB (CK-2) Rel Index Total Protein Albumin TSH Urine WBC (Auto) Salicylates 02/01/17 02/01/17 02/01/17 05:17 12:19 16:44 WBC RBC Hgb Hct MCV MCH RDW Plt Count Lymph % (Auto) [place] % (Auto) Eos % (Auto) Seg Neutrophils % Seg Neuts % (Manual) Lymphocytes % (Manual) Seg Neutrophils # Seg Neutrophils # Man Lymphocytes # (Manual) APTT POC ABG pH ABG pH POC ABG pCO2 POC ABG pO2 ABG pO2 ABG HCO3 ABG Base Excess ABG Hemoglobin VBG pH Oxyhemoglobin Sodium Potassium Chloride Carbon Dioxide BUN Creatinine Glucose POC Glucose 140 H 213 H 172 H Lactic Acid Calcium AST ALT Alkaline Phosphatase CK-MB (CK-2) CK-MB (CK-2) Rel Index Total Protein Albumin TSH Urine WBC (Auto) Salicylates 02/01/17 02/02/17 02/02/17 23:59 05:14 11:24 WBC RBC Hgb Hct MCV MCH RDW Plt Count Lymph % (Auto) [place] % (Auto) Eos % (Auto) Seg Neutrophils % Seg Neuts % (Manual) Lymphocytes % (Manual) Seg Neutrophils # Seg Neutrophils # Man Lymphocytes # (Manual) APTT POC ABG pH ABG pH POC ABG pCO2 POC ABG pO2 ABG pO2 ABG HCO3 ABG Base Excess ABG Hemoglobin VBG pH Oxyhemoglobin Sodium Potassium Chloride Carbon Dioxide BUN Creatinine Glucose POC Glucose 181 H 194 H 209 H Lactic Acid Calcium AST ALT Alkaline Phosphatase CK-MB (CK-2) CK-MB (CK-2) Rel Index Total Protein Albumin TSH Urine WBC (Auto) Salicylates 02/02/17 02/02/17 02/02/17 11:46 11:46 17:47 WBC RBC 2.94 L Hgb 7.5 L Hct 23.0 L MCV 78 L MCH 25 L RDW 16.9 H Plt Count 520 H Lymph % (Auto) [place] % (Auto) Eos % (Auto) Seg Neutrophils % Seg Neuts % (Manual) Lymphocytes % (Manual) Seg Neutrophils # Seg Neutrophils # Man Lymphocytes # (Manual) APTT POC ABG pH ABG pH POC ABG pCO2 POC ABG pO2 ABG pO2 ABG HCO3 ABG Base Excess ABG Hemoglobin VBG pH Oxyhemoglobin Sodium Potassium Chloride Carbon Dioxide BUN Creatinine 0.6 L Glucose 189 H POC Glucose 147 H Lactic Acid Calcium 8.1 L AST ALT Alkaline Phosphatase CK-MB (CK-2) CK-MB (CK-2) Rel Index Total Protein Albumin TSH Urine WBC (Auto) Salicylates 02/02/17 02/03/17 02/03/17 23:32 05:53 11:19 WBC RBC Hgb Hct MCV MCH RDW Plt Count Lymph % (Auto) [place] % (Auto) Eos % (Auto) Seg Neutrophils % Seg Neuts % (Manual) Lymphocytes % (Manual) Seg Neutrophils # Seg Neutrophils # Man Lymphocytes # (Manual) APTT POC ABG pH ABG pH POC ABG pCO2 POC ABG pO2 ABG pO2 ABG HCO3 ABG Base Excess ABG Hemoglobin VBG pH Oxyhemoglobin Sodium Potassium Chloride Carbon Dioxide BUN Creatinine Glucose POC Glucose 176 H 224 H 228 H Lactic Acid Calcium AST ALT Alkaline Phosphatase CK-MB (CK-2) CK-MB (CK-2) Rel Index Total Protein Albumin TSH Urine WBC (Auto) Salicylates 02/03/17 02/03/17 02/04/17 16:59 23:38 05:45 WBC RBC Hgb Hct MCV MCH RDW Plt Count Lymph % (Auto) [place] % (Auto) Eos % (Auto) Seg Neutrophils % Seg Neuts % (Manual) Lymphocytes % (Manual) Seg Neutrophils # Seg Neutrophils # Man Lymphocytes # (Manual) APTT POC ABG pH ABG pH POC ABG pCO2 POC ABG pO2 ABG pO2 ABG HCO3 ABG Base Excess ABG Hemoglobin VBG pH Oxyhemoglobin Sodium Potassium Chloride Carbon Dioxide BUN Creatinine Glucose POC Glucose 189 H 191 H 251 H Lactic Acid Calcium AST ALT Alkaline Phosphatase CK-MB (CK-2) CK-MB (CK-2) Rel Index Total Protein Albumin TSH Urine WBC (Auto) Salicylates 02/04/17 02/04/17 02/05/17 11:20 17:20 00:17 WBC RBC Hgb Hct MCV MCH RDW Plt Count Lymph % (Auto) [place] % (Auto) Eos % (Auto) Seg Neutrophils % Seg Neuts % (Manual) Lymphocytes % (Manual) Seg Neutrophils # Seg Neutrophils # Man Lymphocytes # (Manual) APTT POC ABG pH ABG pH POC ABG pCO2 POC ABG pO2 ABG pO2 ABG HCO3 ABG Base Excess ABG Hemoglobin VBG pH Oxyhemoglobin Sodium Potassium Chloride Carbon Dioxide BUN Creatinine Glucose POC Glucose 243 H 163 H 200 H Lactic Acid Calcium AST ALT Alkaline Phosphatase CK-MB (CK-2) CK-MB (CK-2) Rel Index Total Protein Albumin TSH Urine WBC (Auto) Salicylates 02/05/17 02/05/17 02/05/17 05:38 12:38 16:29 WBC RBC Hgb Hct MCV MCH RDW Plt Count Lymph % (Auto) [place] % (Auto) Eos % (Auto) Seg Neutrophils % Seg Neuts % (Manual) Lymphocytes % (Manual) Seg Neutrophils # Seg Neutrophils # Man Lymphocytes # (Manual) APTT POC ABG pH ABG pH POC ABG pCO2 POC ABG pO2 ABG pO2 ABG HCO3 ABG Base Excess ABG Hemoglobin VBG pH Oxyhemoglobin Sodium Potassium Chloride Carbon Dioxide BUN Creatinine Glucose POC Glucose 248 H 241 H 257 H Lactic Acid Calcium AST ALT Alkaline Phosphatase CK-MB (CK-2) CK-MB (CK-2) Rel Index Total Protein Albumin TSH Urine WBC (Auto) Salicylates 02/05/17 02/06/17 02/06/17 23:56 05:30 11:50 WBC RBC Hgb Hct MCV MCH RDW Plt Count Lymph % (Auto) [place] % (Auto) Eos % (Auto) Seg Neutrophils % Seg Neuts % (Manual) Lymphocytes % (Manual) Seg Neutrophils # Seg Neutrophils # Man Lymphocytes # (Manual) APTT POC ABG pH ABG pH POC ABG pCO2 POC ABG pO2 ABG pO2 ABG HCO3 ABG Base Excess ABG Hemoglobin VBG pH Oxyhemoglobin Sodium Potassium Chloride Carbon Dioxide BUN Creatinine Glucose POC Glucose 258 H 120 H 254 H Lactic Acid Calcium AST ALT Alkaline Phosphatase CK-MB (CK-2) CK-MB (CK-2) Rel Index Total Protein Albumin TSH Urine WBC (Auto) Salicylates 02/06/17 02/06/17 02/07/17 17:11 23:50 05:22 WBC RBC Hgb Hct MCV MCH RDW Plt Count Lymph % (Auto) [place] % (Auto) Eos % (Auto) Seg Neutrophils % Seg Neuts % (Manual) Lymphocytes % (Manual) Seg Neutrophils # Seg Neutrophils # Man Lymphocytes # (Manual) APTT POC ABG pH ABG pH POC ABG pCO2 POC ABG pO2 ABG pO2 ABG HCO3 ABG Base Excess ABG Hemoglobin VBG pH Oxyhemoglobin Sodium Potassium Chloride Carbon Dioxide BUN Creatinine Glucose POC Glucose 149 H 240 H 258 H Lactic Acid Calcium AST ALT Alkaline Phosphatase CK-MB (CK-2) CK-MB (CK-2) Rel Index Total Protein Albumin TSH Urine WBC (Auto) Salicylates 02/07/17 02/07/17 02/07/17 11:15 18:33 23:59 WBC RBC Hgb Hct MCV MCH RDW Plt Count Lymph % (Auto) [place] % (Auto) Eos % (Auto) Seg Neutrophils % Seg Neuts % (Manual) Lymphocytes % (Manual) Seg Neutrophils # Seg Neutrophils # Man Lymphocytes # (Manual) APTT POC ABG pH ABG pH POC ABG pCO2 POC ABG pO2 ABG pO2 ABG HCO3 ABG Base Excess ABG Hemoglobin VBG pH Oxyhemoglobin Sodium Potassium Chloride Carbon Dioxide BUN Creatinine Glucose POC Glucose 239 H 176 H 186 H Lactic Acid Calcium AST ALT Alkaline Phosphatase CK-MB (CK-2) CK-MB (CK-2) Rel Index Total Protein Albumin TSH Urine WBC (Auto) Salicylates 02/08/17 02/08/17 02/08/17 06:15 11:55 16:55 WBC RBC Hgb Hct MCV MCH RDW Plt Count Lymph % (Auto) [place] % (Auto) Eos % (Auto) Seg Neutrophils % Seg Neuts % (Manual) Lymphocytes % (Manual) Seg Neutrophils # Seg Neutrophils # Man Lymphocytes # (Manual) APTT POC ABG pH ABG pH POC ABG pCO2 POC ABG pO2 ABG pO2 ABG HCO3 ABG Base Excess ABG Hemoglobin VBG pH Oxyhemoglobin Sodium Potassium Chloride Carbon Dioxide BUN Creatinine Glucose POC Glucose 195 H 129 H 246 H Lactic Acid Calcium AST ALT Alkaline Phosphatase CK-MB (CK-2) CK-MB (CK-2) Rel Index Total Protein Albumin TSH Urine WBC (Auto) Salicylates 02/08/17 02/09/17 02/09/17 23:51 05:51 07:24 WBC 14.7 H RBC 3.39 L Hgb 8.9 L Hct 26.4 L MCV 78 L MCH 26 L RDW 18.4 H Plt Count 670 H Lymph % (Auto) 11.8 L [place] % (Auto) Eos % (Auto) Seg Neutrophils % 81.2 H Seg Neuts % (Manual) Lymphocytes % (Manual) Seg Neutrophils # 11.9 H Seg Neutrophils # Man Lymphocytes # (Manual) APTT POC ABG pH ABG pH POC ABG pCO2 POC ABG pO2 ABG pO2 ABG HCO3 ABG Base Excess ABG Hemoglobin VBG pH Oxyhemoglobin Sodium Potassium Chloride Carbon Dioxide BUN Creatinine Glucose POC Glucose 262 H 295 H Lactic Acid Calcium AST ALT Alkaline Phosphatase CK-MB (CK-2) CK-MB (CK-2) Rel Index Total Protein Albumin TSH Urine WBC (Auto) Salicylates 02/09/17 02/09/17 02/09/17 07:24 12:08 18:39 WBC RBC Hgb Hct MCV MCH RDW Plt Count Lymph % (Auto) [place] % (Auto) Eos % (Auto) Seg Neutrophils % Seg Neuts % (Manual) Lymphocytes % (Manual) Seg Neutrophils # Seg Neutrophils # Man Lymphocytes # (Manual) APTT POC ABG pH ABG pH POC ABG pCO2 POC ABG pO2 ABG pO2 ABG HCO3 ABG Base Excess ABG Hemoglobin VBG pH Oxyhemoglobin Sodium Potassium Chloride 95.5 L Carbon Dioxide BUN 52 H Creatinine Glucose 277 H POC Glucose 236 H 151 H Lactic Acid Calcium AST ALT Alkaline Phosphatase CK-MB (CK-2) CK-MB (CK-2) Rel Index Total Protein Albumin TSH Urine WBC (Auto) Salicylates 02/10/17 02/10/17 02/10/17 00:01 05:44 11:21 WBC RBC Hgb Hct MCV MCH RDW Plt Count Lymph % (Auto) [place] % (Auto) Eos % (Auto) Seg Neutrophils % Seg Neuts % (Manual) Lymphocytes % (Manual) Seg Neutrophils # Seg Neutrophils # Man Lymphocytes # (Manual) APTT POC ABG pH ABG pH POC ABG pCO2 POC ABG pO2 ABG pO2 ABG HCO3 ABG Base Excess ABG Hemoglobin VBG pH Oxyhemoglobin Sodium Potassium Chloride Carbon Dioxide BUN Creatinine Glucose POC Glucose 210 H 201 H 233 H Lactic Acid Calcium AST ALT Alkaline Phosphatase CK-MB (CK-2) CK-MB (CK-2) Rel Index Total Protein Albumin TSH Urine WBC (Auto) Salicylates 02/10/17 02/10/17 02/11/17 17:29 23:56 05:24 WBC RBC Hgb Hct MCV MCH RDW Plt Count Lymph % (Auto) [place] % (Auto) Eos % (Auto) Seg Neutrophils % Seg Neuts % (Manual) Lymphocytes % (Manual) Seg Neutrophils # Seg Neutrophils # Man Lymphocytes # (Manual) APTT POC ABG pH ABG pH POC ABG pCO2 POC ABG pO2 ABG pO2 ABG HCO3 ABG Base Excess ABG Hemoglobin VBG pH Oxyhemoglobin Sodium Potassium Chloride Carbon Dioxide BUN Creatinine Glucose POC Glucose 167 H 191 H 135 H Lactic Acid Calcium AST ALT Alkaline Phosphatase CK-MB (CK-2) CK-MB (CK-2) Rel Index Total Protein Albumin TSH Urine WBC (Auto) Salicylates 02/11/17 02/11/17 02/11/17 12:25 17:03 23:59 WBC RBC Hgb Hct MCV MCH RDW Plt Count Lymph % (Auto) [place] % (Auto) Eos % (Auto) Seg Neutrophils % Seg Neuts % (Manual) Lymphocytes % (Manual) Seg Neutrophils # Seg Neutrophils # Man Lymphocytes # (Manual) APTT POC ABG pH ABG pH POC ABG pCO2 POC ABG pO2 ABG pO2 ABG HCO3 ABG Base Excess ABG Hemoglobin VBG pH Oxyhemoglobin Sodium Potassium Chloride Carbon Dioxide BUN Creatinine Glucose POC Glucose 275 H 172 H 215 H Lactic Acid Calcium AST ALT Alkaline Phosphatase CK-MB (CK-2) CK-MB (CK-2) Rel Index Total Protein Albumin TSH Urine WBC (Auto) Salicylates 02/12/17 02/12/17 02/12/17 05:39 11:33 17:55 WBC RBC Hgb Hct MCV MCH RDW Plt Count Lymph % (Auto) [place] % (Auto) Eos % (Auto) Seg Neutrophils % Seg Neuts % (Manual) Lymphocytes % (Manual) Seg Neutrophils # Seg Neutrophils # Man Lymphocytes # (Manual) APTT POC ABG pH ABG pH POC ABG pCO2 POC ABG pO2 ABG pO2 ABG HCO3 ABG Base Excess ABG Hemoglobin VBG pH Oxyhemoglobin Sodium Potassium Chloride Carbon Dioxide BUN Creatinine Glucose POC Glucose 261 H 217 H 172 H Lactic Acid Calcium AST ALT Alkaline Phosphatase CK-MB (CK-2) CK-MB (CK-2) Rel Index Total Protein Albumin TSH Urine WBC (Auto) Salicylates 02/13/17 02/13/17 02/13/17 00:25 06:46 11:26 WBC RBC Hgb Hct MCV MCH RDW Plt Count Lymph % (Auto) [place] % (Auto) Eos % (Auto) Seg Neutrophils % Seg Neuts % (Manual) Lymphocytes % (Manual) Seg Neutrophils # Seg Neutrophils # Man Lymphocytes # (Manual) APTT POC ABG pH ABG pH POC ABG pCO2 POC ABG pO2 ABG pO2 ABG HCO3 ABG Base Excess ABG Hemoglobin VBG pH Oxyhemoglobin Sodium Potassium Chloride Carbon Dioxide BUN Creatinine Glucose POC Glucose 207 H 219 H 231 H Lactic Acid Calcium AST ALT Alkaline Phosphatase CK-MB (CK-2) CK-MB (CK-2) Rel Index Total Protein Albumin TSH Urine WBC (Auto) Salicylates 02/13/17 02/13/17 02/14/17 17:12 23:44 05:44 WBC RBC Hgb Hct MCV MCH RDW Plt Count Lymph % (Auto) [place] % (Auto) Eos % (Auto) Seg Neutrophils % Seg Neuts % (Manual) Lymphocytes % (Manual) Seg Neutrophils # Seg Neutrophils # Man Lymphocytes # (Manual) APTT POC ABG pH ABG pH POC ABG pCO2 POC ABG pO2 ABG pO2 ABG HCO3 ABG Base Excess ABG Hemoglobin VBG pH Oxyhemoglobin Sodium Potassium Chloride Carbon Dioxide BUN Creatinine Glucose POC Glucose 190 H 256 H 184 H Lactic Acid Calcium AST ALT Alkaline Phosphatase CK-MB (CK-2) CK-MB (CK-2) Rel Index Total Protein Albumin TSH Urine WBC (Auto) Salicylates 02/14/17 02/14/17 02/14/17 12:21 17:57 23:18 WBC RBC Hgb Hct MCV MCH RDW Plt Count Lymph % (Auto) [place] % (Auto) Eos % (Auto) Seg Neutrophils % Seg Neuts % (Manual) Lymphocytes % (Manual) Seg Neutrophils # Seg Neutrophils # Man Lymphocytes # (Manual) APTT POC ABG pH ABG pH POC ABG pCO2 POC ABG pO2 ABG pO2 ABG HCO3 ABG Base Excess ABG Hemoglobin VBG pH Oxyhemoglobin Sodium Potassium Chloride Carbon Dioxide BUN Creatinine Glucose POC Glucose 233 H 155 H 165 H Lactic Acid Calcium AST ALT Alkaline Phosphatase CK-MB (CK-2) CK-MB (CK-2) Rel Index Total Protein Albumin TSH Urine WBC (Auto) Salicylates 02/15/17 02/15/17 02/15/17 05:33 11:45 17:20 WBC RBC Hgb Hct MCV MCH RDW Plt Count Lymph % (Auto) [place] % (Auto) Eos % (Auto) Seg Neutrophils % Seg Neuts % (Manual) Lymphocytes % (Manual) Seg Neutrophils # Seg Neutrophils # Man Lymphocytes # (Manual) APTT POC ABG pH ABG pH POC ABG pCO2 POC ABG pO2 ABG pO2 ABG HCO3 ABG Base Excess ABG Hemoglobin VBG pH Oxyhemoglobin Sodium Potassium Chloride Carbon Dioxide BUN Creatinine Glucose POC Glucose 239 H 130 H 189 H Lactic Acid Calcium AST ALT Alkaline Phosphatase CK-MB (CK-2) CK-MB (CK-2) Rel Index Total Protein Albumin TSH Urine WBC (Auto) Salicylates 02/16/17 02/16/17 02/16/17 00:14 05:09 12:31 WBC RBC Hgb Hct MCV MCH RDW Plt Count Lymph % (Auto) [place] % (Auto) Eos % (Auto) Seg Neutrophils % Seg Neuts % (Manual) Lymphocytes % (Manual) Seg Neutrophils # Seg Neutrophils # Man Lymphocytes # (Manual) APTT POC ABG pH ABG pH POC ABG pCO2 POC ABG pO2 ABG pO2 ABG HCO3 ABG Base Excess ABG Hemoglobin VBG pH Oxyhemoglobin Sodium Potassium Chloride Carbon Dioxide BUN Creatinine Glucose POC Glucose 197 H 226 H 178 H Lactic Acid Calcium AST ALT Alkaline Phosphatase CK-MB (CK-2) CK-MB (CK-2) Rel Index Total Protein Albumin TSH Urine WBC (Auto) Salicylates 02/16/17 02/16/17 02/17/17 16:35 23:49 05:37 WBC RBC Hgb Hct MCV MCH RDW Plt Count Lymph % (Auto) [place] % (Auto) Eos % (Auto) Seg Neutrophils % Seg Neuts % (Manual) Lymphocytes % (Manual) Seg Neutrophils # Seg Neutrophils # Man Lymphocytes # (Manual) APTT POC ABG pH ABG pH POC ABG pCO2 POC ABG pO2 ABG pO2 ABG HCO3 ABG Base Excess ABG Hemoglobin VBG pH Oxyhemoglobin Sodium Potassium Chloride Carbon Dioxide BUN Creatinine Glucose POC Glucose 174 H 62 L 153 H Lactic Acid Calcium AST ALT Alkaline Phosphatase CK-MB (CK-2) CK-MB (CK-2) Rel Index Total Protein Albumin TSH Urine WBC (Auto) Salicylates 02/17/17 02/17/17 02/17/17 11:39 17:02 22:24 WBC RBC Hgb Hct MCV MCH RDW Plt Count Lymph % (Auto) [place] % (Auto) Eos % (Auto) Seg Neutrophils % Seg Neuts % (Manual) Lymphocytes % (Manual) Seg Neutrophils # Seg Neutrophils # Man Lymphocytes # (Manual) APTT POC ABG pH ABG pH POC ABG pCO2 POC ABG pO2 ABG pO2 ABG HCO3 ABG Base Excess ABG Hemoglobin VBG pH Oxyhemoglobin Sodium Potassium Chloride Carbon Dioxide BUN Creatinine Glucose POC Glucose 231 H 112 H 116 H Lactic Acid Calcium AST ALT Alkaline Phosphatase CK-MB (CK-2) CK-MB (CK-2) Rel Index Total Protein Albumin TSH Urine WBC (Auto) Salicylates 02/18/17 02/19/17 02/19/17 15:34 05:09 07:57 WBC RBC Hgb Hct MCV MCH RDW Plt Count Lymph % (Auto) [place] % (Auto) Eos % (Auto) Seg Neutrophils % Seg Neuts % (Manual) Lymphocytes % (Manual) Seg Neutrophils # Seg Neutrophils # Man Lymphocytes # (Manual) APTT POC ABG pH ABG pH POC ABG pCO2 POC ABG pO2 ABG pO2 ABG HCO3 ABG Base Excess ABG Hemoglobin VBG pH Oxyhemoglobin Sodium Potassium Chloride Carbon Dioxide BUN Creatinine Glucose POC Glucose 215 H 218 H 283 H Lactic Acid Calcium AST ALT Alkaline Phosphatase CK-MB (CK-2) CK-MB (CK-2) Rel Index Total Protein Albumin TSH Urine WBC (Auto) Salicylates 02/19/17 02/19/17 02/20/17 14:49 22:10 05:10 WBC RBC Hgb Hct MCV MCH RDW Plt Count Lymph % (Auto) [place] % (Auto) Eos % (Auto) Seg Neutrophils % Seg Neuts % (Manual) Lymphocytes % (Manual) Seg Neutrophils # Seg Neutrophils # Man Lymphocytes # (Manual) APTT POC ABG pH ABG pH POC ABG pCO2 POC ABG pO2 ABG pO2 ABG HCO3 ABG Base Excess ABG Hemoglobin VBG pH Oxyhemoglobin Sodium Potassium Chloride Carbon Dioxide BUN Creatinine Glucose POC Glucose 290 H 169 H 209 H Lactic Acid Calcium AST ALT Alkaline Phosphatase CK-MB (CK-2) CK-MB (CK-2) Rel Index Total Protein Albumin TSH Urine WBC (Auto) Salicylates 02/20/17 02/20/17 02/21/17 15:05 21:52 02:00 WBC RBC Hgb Hct MCV MCH RDW Plt Count Lymph % (Auto) [place] % (Auto) Eos % (Auto) Seg Neutrophils % Seg Neuts % (Manual) Lymphocytes % (Manual) Seg Neutrophils # Seg Neutrophils # Man Lymphocytes # (Manual) APTT POC ABG pH ABG pH POC ABG pCO2 POC ABG pO2 ABG pO2 ABG HCO3 ABG Base Excess ABG Hemoglobin VBG pH Oxyhemoglobin Sodium Potassium Chloride Carbon Dioxide BUN Creatinine Glucose POC Glucose 172 H 209 H 216 H Lactic Acid Calcium AST ALT Alkaline Phosphatase CK-MB (CK-2) CK-MB (CK-2) Rel Index Total Protein Albumin TSH Urine WBC (Auto) Salicylates 02/21/17 02/21/17 02/21/17 04:54 14:43 17:47 WBC RBC Hgb Hct MCV MCH RDW Plt Count Lymph % (Auto) [place] % (Auto) Eos % (Auto) Seg Neutrophils % Seg Neuts % (Manual) Lymphocytes % (Manual) Seg Neutrophils # Seg Neutrophils # Man Lymphocytes # (Manual) APTT POC ABG pH ABG pH POC ABG pCO2 POC ABG pO2 ABG pO2 ABG HCO3 ABG Base Excess ABG Hemoglobin VBG pH Oxyhemoglobin Sodium Potassium Chloride Carbon Dioxide BUN Creatinine Glucose POC Glucose 227 H 290 H 220 H Lactic Acid Calcium AST ALT Alkaline Phosphatase CK-MB (CK-2) CK-MB (CK-2) Rel Index Total Protein Albumin TSH Urine WBC (Auto) Salicylates 02/21/17 02/22/17 02/22/17 22:02 04:52 15:25 WBC RBC Hgb Hct MCV MCH RDW Plt Count Lymph % (Auto) [place] % (Auto) Eos % (Auto) Seg Neutrophils % Seg Neuts % (Manual) Lymphocytes % (Manual) Seg Neutrophils # Seg Neutrophils # Man Lymphocytes # (Manual) APTT POC ABG pH ABG pH POC ABG pCO2 POC ABG pO2 ABG pO2 ABG HCO3 ABG Base Excess ABG Hemoglobin VBG pH Oxyhemoglobin Sodium Potassium Chloride Carbon Dioxide BUN Creatinine Glucose POC Glucose 246 H 212 H 236 H Lactic Acid Calcium AST ALT Alkaline Phosphatase CK-MB (CK-2) CK-MB (CK-2) Rel Index Total Protein Albumin TSH Urine WBC (Auto) Salicylates 02/22/17 02/23/17 02/23/17 21:33 06:04 10:00 WBC RBC Hgb Hct MCV MCH RDW Plt Count Lymph % (Auto) [place] % (Auto) Eos % (Auto) Seg Neutrophils % Seg Neuts % (Manual) Lymphocytes % (Manual) Seg Neutrophils # Seg Neutrophils # Man Lymphocytes # (Manual) APTT POC ABG pH ABG pH POC ABG pCO2 POC ABG pO2 ABG pO2 ABG HCO3 ABG Base Excess ABG Hemoglobin VBG pH Oxyhemoglobin Sodium Potassium Chloride Carbon Dioxide BUN Creatinine Glucose POC Glucose 255 H 208 H 174 H Lactic Acid Calcium AST ALT Alkaline Phosphatase CK-MB (CK-2) CK-MB (CK-2) Rel Index Total Protein Albumin TSH Urine WBC (Auto) Salicylates 02/23/17 02/23/17 02/23/17 12:52 17:15 21:51 WBC RBC Hgb Hct MCV MCH RDW Plt Count Lymph % (Auto) [place] % (Auto) Eos % (Auto) Seg Neutrophils % Seg Neuts % (Manual) Lymphocytes % (Manual) Seg Neutrophils # Seg Neutrophils # Man Lymphocytes # (Manual) APTT POC ABG pH ABG pH POC ABG pCO2 POC ABG pO2 ABG pO2 ABG HCO3 ABG Base Excess ABG Hemoglobin VBG pH Oxyhemoglobin Sodium Potassium Chloride Carbon Dioxide BUN Creatinine Glucose POC Glucose 203 H 269 H 205 H Lactic Acid Calcium AST ALT Alkaline Phosphatase CK-MB (CK-2) CK-MB (CK-2) Rel Index Total Protein Albumin TSH Urine WBC (Auto) Salicylates 02/24/17 02/24/17 02/24/17 10:23 17:45 21:24 WBC RBC Hgb Hct MCV MCH RDW Plt Count Lymph % (Auto) [place] % (Auto) Eos % (Auto) Seg Neutrophils % Seg Neuts % (Manual) Lymphocytes % (Manual) Seg Neutrophils # Seg Neutrophils # Man Lymphocytes # (Manual) APTT POC ABG pH ABG pH POC ABG pCO2 POC ABG pO2 ABG pO2 ABG HCO3 ABG Base Excess ABG Hemoglobin VBG pH Oxyhemoglobin Sodium Potassium Chloride Carbon Dioxide BUN Creatinine Glucose POC Glucose 280 H 239 H 254 H Lactic Acid Calcium AST ALT Alkaline Phosphatase CK-MB (CK-2) CK-MB (CK-2) Rel Index Total Protein Albumin TSH Urine WBC (Auto) Salicylates 02/25/17 02/25/17 02/25/17 02:12 05:17 14:32 WBC RBC Hgb Hct MCV MCH RDW Plt Count Lymph % (Auto) [place] % (Auto) Eos % (Auto) Seg Neutrophils % Seg Neuts % (Manual) Lymphocytes % (Manual) Seg Neutrophils # Seg Neutrophils # Man Lymphocytes # (Manual) APTT POC ABG pH ABG pH POC ABG pCO2 POC ABG pO2 ABG pO2 ABG HCO3 ABG Base Excess ABG Hemoglobin VBG pH Oxyhemoglobin Sodium Potassium Chloride Carbon Dioxide BUN Creatinine Glucose POC Glucose 296 H 332 H 353 H Lactic Acid Calcium AST ALT Alkaline Phosphatase CK-MB (CK-2) CK-MB (CK-2) Rel Index Total Protein Albumin TSH Urine WBC (Auto) Salicylates 02/25/17 02/26/17 02/26/17 22:14 00:37 05:52 WBC RBC Hgb Hct MCV MCH RDW Plt Count Lymph % (Auto) [place] % (Auto) Eos % (Auto) Seg Neutrophils % Seg Neuts % (Manual) Lymphocytes % (Manual) Seg Neutrophils # Seg Neutrophils # Man Lymphocytes # (Manual) APTT POC ABG pH ABG pH POC ABG pCO2 POC ABG pO2 ABG pO2 ABG HCO3 ABG Base Excess ABG Hemoglobin VBG pH Oxyhemoglobin Sodium Potassium Chloride Carbon Dioxide BUN Creatinine Glucose POC Glucose 201 H 233 H 269 H Lactic Acid Calcium AST ALT Alkaline Phosphatase CK-MB (CK-2) CK-MB (CK-2) Rel Index Total Protein Albumin TSH Urine WBC (Auto) Salicylates 02/26/17 02/26/17 02/26/17 11:48 13:49 21:26 WBC RBC Hgb Hct MCV MCH RDW Plt Count Lymph % (Auto) [place] % (Auto) Eos % (Auto) Seg Neutrophils % Seg Neuts % (Manual) Lymphocytes % (Manual) Seg Neutrophils # Seg Neutrophils # Man Lymphocytes # (Manual) APTT POC ABG pH ABG pH POC ABG pCO2 POC ABG pO2 ABG pO2 ABG HCO3 ABG Base Excess ABG Hemoglobin VBG pH Oxyhemoglobin Sodium Potassium Chloride Carbon Dioxide BUN Creatinine Glucose POC Glucose 333 H 322 H 244 H Lactic Acid Calcium AST ALT Alkaline Phosphatase CK-MB (CK-2) CK-MB (CK-2) Rel Index Total Protein Albumin TSH Urine WBC (Auto) Salicylates 02/27/17 02/27/17 02/27/17 05:27 13:51 21:48 WBC RBC Hgb Hct MCV MCH RDW Plt Count Lymph % (Auto) [place] % (Auto) Eos % (Auto) Seg Neutrophils % Seg Neuts % (Manual) Lymphocytes % (Manual) Seg Neutrophils # Seg Neutrophils # Man Lymphocytes # (Manual) APTT POC ABG pH ABG pH POC ABG pCO2 POC ABG pO2 ABG pO2 ABG HCO3 ABG Base Excess ABG Hemoglobin VBG pH Oxyhemoglobin Sodium Potassium Chloride Carbon Dioxide BUN Creatinine Glucose POC Glucose 217 H 239 H 254 H Lactic Acid Calcium AST ALT Alkaline Phosphatase CK-MB (CK-2) CK-MB (CK-2) Rel Index Total Protein Albumin TSH Urine WBC (Auto) Salicylates 02/28/17 02/28/17 02/28/17 05:38 11:00 19:44 WBC RBC Hgb Hct MCV MCH RDW Plt Count Lymph % (Auto) [place] % (Auto) Eos % (Auto) Seg Neutrophils % Seg Neuts % (Manual) Lymphocytes % (Manual) Seg Neutrophils # Seg Neutrophils # Man Lymphocytes # (Manual) APTT POC ABG pH ABG pH POC ABG pCO2 POC ABG pO2 ABG pO2 ABG HCO3 ABG Base Excess ABG Hemoglobin VBG pH Oxyhemoglobin Sodium Potassium Chloride Carbon Dioxide BUN Creatinine Glucose POC Glucose 325 H 203 H 116 H Lactic Acid Calcium AST ALT Alkaline Phosphatase CK-MB (CK-2) CK-MB (CK-2) Rel Index Total Protein Albumin TSH Urine WBC (Auto) Salicylates 03/01/17 03/01/17 03/01/17 00:08 05:31 12:17 WBC RBC Hgb Hct MCV MCH RDW Plt Count Lymph % (Auto) [place] % (Auto) Eos % (Auto) Seg Neutrophils % Seg Neuts % (Manual) Lymphocytes % (Manual) Seg Neutrophils # Seg Neutrophils # Man Lymphocytes # (Manual) APTT POC ABG pH ABG pH POC ABG pCO2 POC ABG pO2 ABG pO2 ABG HCO3 ABG Base Excess ABG Hemoglobin VBG pH Oxyhemoglobin Sodium Potassium Chloride Carbon Dioxide BUN Creatinine Glucose POC Glucose 202 H 183 H 184 H Lactic Acid Calcium AST ALT Alkaline Phosphatase CK-MB (CK-2) CK-MB (CK-2) Rel Index Total Protein Albumin TSH Urine WBC (Auto) Salicylates 03/02/17 03/02/17 03/02/17 00:12 05:58 18:22 WBC RBC Hgb Hct MCV MCH RDW Plt Count Lymph % (Auto) [place] % (Auto) Eos % (Auto) Seg Neutrophils % Seg Neuts % (Manual) Lymphocytes % (Manual) Seg Neutrophils # Seg Neutrophils # Man Lymphocytes # (Manual) APTT POC ABG pH ABG pH POC ABG pCO2 POC ABG pO2 ABG pO2 ABG HCO3 ABG Base Excess ABG Hemoglobin VBG pH Oxyhemoglobin Sodium Potassium Chloride Carbon Dioxide BUN Creatinine Glucose POC Glucose 117 H 176 H 156 H Lactic Acid Calcium AST ALT Alkaline Phosphatase CK-MB (CK-2) CK-MB (CK-2) Rel Index Total Protein Albumin TSH Urine WBC (Auto) Salicylates 03/02/17 03/03/17 03/03/17 23:51 05:44 11:32 WBC RBC Hgb Hct MCV MCH RDW Plt Count Lymph % (Auto) [place] % (Auto) Eos % (Auto) Seg Neutrophils % Seg Neuts % (Manual) Lymphocytes % (Manual) Seg Neutrophils # Seg Neutrophils # Man Lymphocytes # (Manual) APTT POC ABG pH ABG pH POC ABG pCO2 POC ABG pO2 ABG pO2 ABG HCO3 ABG Base Excess ABG Hemoglobin VBG pH Oxyhemoglobin Sodium Potassium Chloride Carbon Dioxide BUN Creatinine Glucose POC Glucose 211 H 117 H 133 H Lactic Acid Calcium AST ALT Alkaline Phosphatase CK-MB (CK-2) CK-MB (CK-2) Rel Index Total Protein Albumin TSH Urine WBC (Auto) Salicylates 03/03/17 03/03/17 03/04/17 17:43 23:17 05:30 WBC RBC Hgb Hct MCV MCH RDW Plt Count Lymph % (Auto) [place] % (Auto) Eos % (Auto) Seg Neutrophils % Seg Neuts % (Manual) Lymphocytes % (Manual) Seg Neutrophils # Seg Neutrophils # Man Lymphocytes # (Manual) APTT POC ABG pH ABG pH POC ABG pCO2 POC ABG pO2 ABG pO2 ABG HCO3 ABG Base Excess ABG Hemoglobin VBG pH Oxyhemoglobin Sodium Potassium Chloride Carbon Dioxide BUN Creatinine Glucose POC Glucose 206 H 170 H 126 H Lactic Acid Calcium AST ALT Alkaline Phosphatase CK-MB (CK-2) CK-MB (CK-2) Rel Index Total Protein Albumin TSH Urine WBC (Auto) Salicylates 03/04/17 03/04/17 03/05/17 12:17 17:27 05:20 WBC RBC Hgb Hct MCV MCH RDW Plt Count Lymph % (Auto) [place] % (Auto) Eos % (Auto) Seg Neutrophils % Seg Neuts % (Manual) Lymphocytes % (Manual) Seg Neutrophils # Seg Neutrophils # Man Lymphocytes # (Manual) APTT POC ABG pH ABG pH POC ABG pCO2 POC ABG pO2 ABG pO2 ABG HCO3 ABG Base Excess ABG Hemoglobin VBG pH Oxyhemoglobin Sodium Potassium Chloride Carbon Dioxide BUN Creatinine Glucose POC Glucose 135 H 121 H 185 H Lactic Acid Calcium AST ALT Alkaline Phosphatase CK-MB (CK-2) CK-MB (CK-2) Rel Index Total Protein Albumin TSH Urine WBC (Auto) Salicylates 03/05/17 03/06/17 03/06/17 11:50 11:52 17:34 WBC RBC Hgb Hct MCV MCH RDW Plt Count Lymph % (Auto) [place] % (Auto) Eos % (Auto) Seg Neutrophils % Seg Neuts % (Manual) Lymphocytes % (Manual) Seg Neutrophils # Seg Neutrophils # Man Lymphocytes # (Manual) APTT POC ABG pH ABG pH POC ABG pCO2 POC ABG pO2 ABG pO2 ABG HCO3 ABG Base Excess ABG Hemoglobin VBG pH Oxyhemoglobin Sodium Potassium Chloride Carbon Dioxide BUN Creatinine Glucose POC Glucose 116 H 133 H 181 H Lactic Acid Calcium AST ALT Alkaline Phosphatase CK-MB (CK-2) CK-MB (CK-2) Rel Index Total Protein Albumin TSH Urine WBC (Auto) Salicylates 03/07/17 03/07/17 03/07/17 05:21 11:36 17:49 WBC RBC Hgb Hct MCV MCH RDW Plt Count Lymph % (Auto) [place] % (Auto) Eos % (Auto) Seg Neutrophils % Seg Neuts % (Manual) Lymphocytes % (Manual) Seg Neutrophils # Seg Neutrophils # Man Lymphocytes # (Manual) APTT POC ABG pH ABG pH POC ABG pCO2 POC ABG pO2 ABG pO2 ABG HCO3 ABG Base Excess ABG Hemoglobin VBG pH Oxyhemoglobin Sodium Potassium Chloride Carbon Dioxide BUN Creatinine Glucose POC Glucose 159 H 137 H 158 H Lactic Acid Calcium AST ALT Alkaline Phosphatase CK-MB (CK-2) CK-MB (CK-2) Rel Index Total Protein Albumin TSH Urine WBC (Auto) Salicylates 03/08/17 03/08/17 03/08/17 05:51 13:58 23:50 WBC RBC Hgb Hct MCV MCH RDW Plt Count Lymph % (Auto) [place] % (Auto) Eos % (Auto) Seg Neutrophils % Seg Neuts % (Manual) Lymphocytes % (Manual) Seg Neutrophils # Seg Neutrophils # Man Lymphocytes # (Manual) APTT POC ABG pH ABG pH POC ABG pCO2 POC ABG pO2 ABG pO2 ABG HCO3 ABG Base Excess ABG Hemoglobin VBG pH Oxyhemoglobin Sodium Potassium Chloride Carbon Dioxide BUN Creatinine Glucose POC Glucose 122 H 182 H 114 H Lactic Acid Calcium AST ALT Alkaline Phosphatase CK-MB (CK-2) CK-MB (CK-2) Rel Index Total Protein Albumin TSH Urine WBC (Auto) Salicylates 03/09/17 03/09/17 03/09/17 05:21 05:51 05:51 WBC RBC 3.61 L Hgb 9.5 L Hct 28.3 L MCV 79 L MCH 26 L RDW 17.8 H Plt Count Lymph % (Auto) [place] % (Auto) Eos % (Auto) Seg Neutrophils % Seg Neuts % (Manual) Lymphocytes % (Manual) Seg Neutrophils # Seg Neutrophils # Man Lymphocytes # (Manual) APTT POC ABG pH ABG pH POC ABG pCO2 POC ABG pO2 ABG pO2 ABG HCO3 ABG Base Excess ABG Hemoglobin VBG pH Oxyhemoglobin Sodium 134 L Potassium Chloride 95.5 L Carbon Dioxide BUN 33 H Creatinine 0.5 L Glucose 143 H POC Glucose 153 H Lactic Acid Calcium AST ALT Alkaline Phosphatase CK-MB (CK-2) CK-MB (CK-2) Rel Index Total Protein Albumin TSH Urine WBC (Auto) Salicylates 03/09/17 03/09/17 03/09/17 12:10 18:13 21:00 WBC RBC Hgb Hct MCV MCH RDW Plt Count Lymph % (Auto) [place] % (Auto) Eos % (Auto) Seg Neutrophils % Seg Neuts % (Manual) Lymphocytes % (Manual) Seg Neutrophils # Seg Neutrophils # Man Lymphocytes # (Manual) APTT POC ABG pH ABG pH POC ABG pCO2 POC ABG pO2 ABG pO2 ABG HCO3 ABG Base Excess ABG Hemoglobin VBG pH Oxyhemoglobin Sodium Potassium Chloride Carbon Dioxide BUN Creatinine Glucose POC Glucose 203 H 221 H 198 H Lactic Acid Calcium AST ALT Alkaline Phosphatase CK-MB (CK-2) CK-MB (CK-2) Rel Index Total Protein Albumin TSH Urine WBC (Auto) Salicylates 03/09/17 03/10/17 03/10/17 23:58 05:09 05:09 WBC RBC Hgb 10.3 L Hct 30.5 L MCV 78 L MCH 26 L RDW 17.9 H Plt Count Lymph % (Auto) [place] % (Auto) 10.0 H Eos % (Auto) 6.0 H Seg Neutrophils % Seg Neuts % (Manual) Lymphocytes % (Manual) Seg Neutrophils # Seg Neutrophils # Man Lymphocytes # (Manual) APTT POC ABG pH ABG pH POC ABG pCO2 POC ABG pO2 ABG pO2 ABG HCO3 ABG Base Excess ABG Hemoglobin VBG pH Oxyhemoglobin Sodium 132 L Potassium Chloride 92.2 L Carbon Dioxide BUN 33 H Creatinine 0.5 L Glucose 50 L POC Glucose 167 H Lactic Acid Calcium AST ALT Alkaline Phosphatase CK-MB (CK-2) CK-MB (CK-2) Rel Index Total Protein Albumin TSH Urine WBC (Auto) Salicylates 03/10/17 03/10/17 03/10/17 05:33 05:34 11:48 WBC RBC Hgb Hct MCV MCH RDW Plt Count Lymph % (Auto) [place] % (Auto) Eos % (Auto) Seg Neutrophils % Seg Neuts % (Manual) Lymphocytes % (Manual) Seg Neutrophils # Seg Neutrophils # Man Lymphocytes # (Manual) APTT POC ABG pH ABG pH POC ABG pCO2 POC ABG pO2 ABG pO2 ABG HCO3 ABG Base Excess ABG Hemoglobin VBG pH Oxyhemoglobin Sodium Potassium Chloride Carbon Dioxide BUN Creatinine Glucose POC Glucose 52 L 53 L 148 H Lactic Acid Calcium AST ALT Alkaline Phosphatase CK-MB (CK-2) CK-MB (CK-2) Rel Index Total Protein Albumin TSH Urine WBC (Auto) Salicylates 03/10/17 03/10/17 03/11/17 17:53 23:47 05:18 WBC RBC Hgb Hct MCV MCH RDW Plt Count Lymph % (Auto) [place] % (Auto) Eos % (Auto) Seg Neutrophils % Seg Neuts % (Manual) Lymphocytes % (Manual) Seg Neutrophils # Seg Neutrophils # Man Lymphocytes # (Manual) APTT POC ABG pH ABG pH POC ABG pCO2 POC ABG pO2 ABG pO2 ABG HCO3 ABG Base Excess ABG Hemoglobin VBG pH Oxyhemoglobin Sodium Potassium Chloride Carbon Dioxide BUN Creatinine Glucose POC Glucose 189 H 398 H 126 H Lactic Acid Calcium AST ALT Alkaline Phosphatase CK-MB (CK-2) CK-MB (CK-2) Rel Index Total Protein Albumin TSH Urine WBC (Auto) Salicylates 03/11/17 03/11/1703/11/17 11:53 17:30 23:10 WBC RBC Hgb Hct MCV MCH RDW Plt Count Lymph % (Auto) [place] % (Auto) Eos % (Auto) Seg Neutrophils % Seg Neuts % (Manual) Lymphocytes % (Manual) Seg Neutrophils # Seg Neutrophils # Man Lymphocytes # (Manual) APTT POC ABG pH ABG pH POC ABG pCO2 POC ABG pO2 ABG pO2 ABG HCO3 ABG Base Excess ABG Hemoglobin VBG pH Oxyhemoglobin Sodium Potassium Chloride Carbon Dioxide BUN Creatinine Glucose POC Glucose 198 H 142 H 244 H Lactic Acid Calcium AST ALT Alkaline Phosphatase CK-MB (CK-2) CK-MB (CK-2) Rel Index Total Protein Albumin TSH Urine WBC (Auto) Salicylates 03/12/17 03/12/17 03/12/17 04:36 11:49 17:23 WBC RBC Hgb Hct MCV MCH RDW Plt Count Lymph % (Auto) [place] % (Auto) Eos % (Auto) Seg Neutrophils % Seg Neuts % (Manual) Lymphocytes % (Manual) Seg Neutrophils # Seg Neutrophils # Man Lymphocytes # (Manual) APTT POC ABG pH ABG pH POC ABG pCO2 POC ABG pO2 ABG pO2 ABG HCO3 ABG Base Excess ABG Hemoglobin VBG pH Oxyhemoglobin Sodium Potassium Chloride Carbon Dioxide BUN Creatinine Glucose POC Glucose 205 H 197 H 209 H Lactic Acid Calcium AST ALT Alkaline Phosphatase CK-MB (CK-2) CK-MB (CK-2) Rel Index Total Protein Albumin TSH Urine WBC (Auto) Salicylates 03/12/17 03/13/17 03/13/17 23:51 05:32 11:43 WBC RBC Hgb Hct MCV MCH RDW Plt Count Lymph % (Auto) [place] % (Auto) Eos % (Auto) Seg Neutrophils % Seg Neuts % (Manual) Lymphocytes % (Manual) Seg Neutrophils # Seg Neutrophils # Man Lymphocytes # (Manual) APTT POC ABG pH ABG pH POC ABG pCO2 POC ABG pO2 ABG pO2 ABG HCO3 ABG Base Excess ABG Hemoglobin VBG pH Oxyhemoglobin Sodium Potassium Chloride Carbon Dioxide BUN Creatinine Glucose POC Glucose 210 H 154 H 164 H Lactic Acid Calcium AST ALT Alkaline Phosphatase CK-MB (CK-2) CK-MB (CK-2) Rel Index Total Protein Albumin TSH Urine WBC (Auto) Salicylates 03/13/17 03/13/17 03/14/17 17:11 23:26 05:42 WBC RBC Hgb Hct MCV MCH RDW Plt Count Lymph % (Auto) [place] % (Auto) Eos % (Auto) Seg Neutrophils % Seg Neuts % (Manual) Lymphocytes % (Manual) Seg Neutrophils # Seg Neutrophils # Man Lymphocytes # (Manual) APTT POC ABG pH ABG pH POC ABG pCO2 POC ABG pO2 ABG pO2 ABG HCO3 ABG Base Excess ABG Hemoglobin VBG pH Oxyhemoglobin Sodium Potassium Chloride Carbon Dioxide BUN Creatinine Glucose POC Glucose 195 H 240 H 230 H Lactic Acid Calcium AST ALT Alkaline Phosphatase CK-MB (CK-2) CK-MB (CK-2) Rel Index Total Protein Albumin TSH Urine WBC (Auto) Salicylates 03/14/17 03/14/17 03/14/17 14:04 17:34 23:42 WBC RBC Hgb Hct MCV MCH RDW Plt Count Lymph % (Auto) [place] % (Auto) Eos % (Auto) Seg Neutrophils % Seg Neuts % (Manual) Lymphocytes % (Manual) Seg Neutrophils # Seg Neutrophils # Man Lymphocytes # (Manual) APTT POC ABG pH ABG pH POC ABG pCO2 POC ABG pO2 ABG pO2 ABG HCO3 ABG Base Excess ABG Hemoglobin VBG pH Oxyhemoglobin Sodium Potassium Chloride Carbon Dioxide BUN Creatinine Glucose POC Glucose 227 H 186 H 225 H Lactic Acid Calcium AST ALT Alkaline Phosphatase CK-MB (CK-2) CK-MB (CK-2) Rel Index Total Protein Albumin TSH Urine WBC (Auto) Salicylates 03/15/17 03/15/17 03/15/17 05:21 17:13 21:37 WBC RBC Hgb Hct MCV MCH RDW Plt Count Lymph % (Auto) [place] % (Auto) Eos % (Auto) Seg Neutrophils % Seg Neuts % (Manual) Lymphocytes % (Manual) Seg Neutrophils # Seg Neutrophils # Man Lymphocytes # (Manual) APTT POC ABG pH ABG pH POC ABG pCO2 POC ABG pO2 ABG pO2 ABG HCO3 ABG Base Excess ABG Hemoglobin VBG pH Oxyhemoglobin Sodium Potassium Chloride Carbon Dioxide BUN Creatinine Glucose POC Glucose 244 H 203 H 216 H Lactic Acid Calcium AST ALT Alkaline Phosphatase CK-MB (CK-2) CK-MB (CK-2) Rel Index Total Protein Albumin TSH Urine WBC (Auto) Salicylates 03/16/17 03/16/17 03/16/17 05:52 18:07 21:54 WBC RBC Hgb Hct MCV MCH RDW Plt Count Lymph % (Auto) [place] % (Auto) Eos % (Auto) Seg Neutrophils % Seg Neuts % (Manual) Lymphocytes % (Manual) Seg Neutrophils # Seg Neutrophils # Man Lymphocytes # (Manual) APTT POC ABG pH ABG pH POC ABG pCO2 POC ABG pO2 ABG pO2 ABG HCO3 ABG Base Excess ABG Hemoglobin VBG pH Oxyhemoglobin Sodium Potassium Chloride Carbon Dioxide BUN Creatinine Glucose POC Glucose 248 H 254 H 244 H Lactic Acid Calcium AST ALT Alkaline Phosphatase CK-MB (CK-2) CK-MB (CK-2) Rel Index Total Protein Albumin TSH Urine WBC (Auto) Salicylates 03/17/17 03/17/17 03/17/17 07:07 07:42 07:43 WBC RBC Hgb 9.7 L Hct 29.1 L MCV 78 L MCH 26 L RDW 17.4 H Plt Count Lymph % (Auto) [place] % (Auto) Eos % (Auto) Seg Neutrophils % Seg Neuts % (Manual) Lymphocytes % (Manual) Seg Neutrophils # Seg Neutrophils # Man Lymphocytes # (Manual) APTT POC ABG pH ABG pH POC ABG pCO2 POC ABG pO2 ABG pO2 ABG HCO3 ABG Base Excess ABG Hemoglobin VBG pH Oxyhemoglobin Sodium Potassium Chloride 96.6 L Carbon Dioxide BUN 30 H Creatinine 0.5 L Glucose 251 H POC Glucose 222 H Lactic Acid Calcium AST ALT Alkaline Phosphatase CK-MB (CK-2) CK-MB (CK-2) Rel Index Total Protein Albumin TSH Urine WBC (Auto) Salicylates 03/17/17 03/17/17 03/18/17 14:08 21:20 14:24 WBC RBC Hgb Hct MCV MCH RDW Plt Count Lymph % (Auto) [place] % (Auto) Eos % (Auto) Seg Neutrophils % Seg Neuts % (Manual) Lymphocytes % (Manual) Seg Neutrophils # Seg Neutrophils # Man Lymphocytes # (Manual) APTT POC ABG pH ABG pH POC ABG pCO2 POC ABG pO2 ABG pO2 ABG HCO3 ABG Base Excess ABG Hemoglobin VBG pH Oxyhemoglobin Sodium Potassium Chloride Carbon Dioxide BUN Creatinine Glucose POC Glucose 281 H 239 H 195 H Lactic Acid Calcium AST ALT Alkaline Phosphatase CK-MB (CK-2) CK-MB (CK-2) Rel Index Total Protein Albumin TSH Urine WBC (Auto) Salicylates 03/18/17 03/19/17 03/19/17 21:37 04:57 14:23 WBC RBC Hgb Hct MCV MCH RDW Plt Count Lymph % (Auto) [place] % (Auto) Eos % (Auto) Seg Neutrophils % Seg Neuts % (Manual) Lymphocytes % (Manual) Seg Neutrophils # Seg Neutrophils # Man Lymphocytes # (Manual) APTT POC ABG pH ABG pH POC ABG pCO2 POC ABG pO2 ABG pO2 ABG HCO3 ABG Base Excess ABG Hemoglobin VBG pH Oxyhemoglobin Sodium Potassium Chloride Carbon Dioxide BUN Creatinine Glucose POC Glucose 227 H 205 H 277 H Lactic Acid Calcium AST ALT Alkaline Phosphatase CK-MB (CK-2) CK-MB (CK-2) Rel Index Total Protein Albumin TSH Urine WBC (Auto) Salicylates 03/19/17 03/19/17 03/20/17 20:31 21:47 04:55 WBC RBC Hgb Hct MCV MCH RDW Plt Count Lymph % (Auto) [place] % (Auto) Eos % (Auto) Seg Neutrophils % Seg Neuts % (Manual) Lymphocytes % (Manual) Seg Neutrophils # Seg Neutrophils # Man Lymphocytes # (Manual) APTT POC ABG pH ABG pH POC ABG pCO2 POC ABG pO2 ABG pO2 ABG HCO3 ABG Base Excess ABG Hemoglobin VBG pH Oxyhemoglobin Sodium Potassium Chloride Carbon Dioxide BUN Creatinine Glucose POC Glucose 256 H 270 H 202 H Lactic Acid Calcium AST ALT Alkaline Phosphatase CK-MB (CK-2) CK-MB (CK-2) Rel Index Total Protein Albumin TSH Urine WBC (Auto) Salicylates 03/20/17 03/20/17 03/21/17 14:09 21:40 05:09 WBC RBC Hgb Hct MCV MCH RDW Plt Count Lymph % (Auto) [place] % (Auto) Eos % (Auto) Seg Neutrophils % Seg Neuts % (Manual) Lymphocytes % (Manual) Seg Neutrophils # Seg Neutrophils # Man Lymphocytes # (Manual) APTT POC ABG pH ABG pH POC ABG pCO2 POC ABG pO2 ABG pO2 ABG HCO3 ABG Base Excess ABG Hemoglobin VBG pH Oxyhemoglobin Sodium Potassium Chloride Carbon Dioxide BUN Creatinine Glucose POC Glucose 200 H 214 H 233 H Lactic Acid Calcium AST ALT Alkaline Phosphatase CK-MB (CK-2) CK-MB (CK-2) Rel Index Total Protein Albumin TSH Urine WBC (Auto) Salicylates 03/21/17 03/21/17 03/22/17 14:06 21:26 05:43 WBC RBC Hgb Hct MCV MCH RDW Plt Count Lymph % (Auto) [place] % (Auto) Eos % (Auto) Seg Neutrophils % Seg Neuts % (Manual) Lymphocytes % (Manual) Seg Neutrophils # Seg Neutrophils # Man Lymphocytes # (Manual) APTT POC ABG pH ABG pH POC ABG pCO2 POC ABG pO2 ABG pO2 ABG HCO3 ABG Base Excess ABG Hemoglobin VBG pH Oxyhemoglobin Sodium Potassium Chloride Carbon Dioxide BUN Creatinine Glucose POC Glucose 250 H 155 H 251 H Lactic Acid Calcium AST ALT Alkaline Phosphatase CK-MB (CK-2) CK-MB (CK-2) Rel Index Total Protein Albumin TSH Urine WBC (Auto) Salicylates 03/22/17 03/22/17 03/23/17 13:46 21:16 00:23 WBC RBC Hgb Hct MCV MCH RDW Plt Count Lymph % (Auto) [place] % (Auto) Eos % (Auto) Seg Neutrophils % Seg Neuts % (Manual) Lymphocytes % (Manual) Seg Neutrophils # Seg Neutrophils # Man Lymphocytes # (Manual) APTT POC ABG pH ABG pH POC ABG pCO2 POC ABG pO2 ABG pO2 ABG HCO3 ABG Base Excess ABG Hemoglobin VBG pH Oxyhemoglobin Sodium Potassium Chloride Carbon Dioxide BUN Creatinine Glucose POC Glucose 269 H 197 H 126 H Lactic Acid Calcium AST ALT Alkaline Phosphatase CK-MB (CK-2) CK-MB (CK-2) Rel Index Total Protein Albumin TSH Urine WBC (Auto) Salicylates 03/23/17 03/23/17 03/23/17 05:39 14:06 21:39 WBC RBC Hgb Hct MCV MCH RDW Plt Count Lymph % (Auto) [place] % (Auto) Eos % (Auto) Seg Neutrophils % Seg Neuts % (Manual) Lymphocytes % (Manual) Seg Neutrophils # Seg Neutrophils # Man Lymphocytes # (Manual) APTT POC ABG pH ABG pH POC ABG pCO2 POC ABG pO2 ABG pO2 ABG HCO3 ABG Base Excess ABG Hemoglobin VBG pH Oxyhemoglobin Sodium Potassium Chloride Carbon Dioxide BUN Creatinine Glucose POC Glucose 234 H 241 H 248 H Lactic Acid Calcium AST ALT Alkaline Phosphatase CK-MB (CK-2) CK-MB (CK-2) Rel Index Total Protein Albumin TSH Urine WBC (Auto) Salicylates 03/24/17 03/24/17 03/25/17 05:06 21:46 05:38 WBC RBC Hgb Hct MCV MCH RDW Plt Count Lymph % (Auto) [place] % (Auto) Eos % (Auto) Seg Neutrophils % Seg Neuts % (Manual) Lymphocytes % (Manual) Seg Neutrophils # Seg Neutrophils # Man Lymphocytes # (Manual) APTT POC ABG pH ABG pH POC ABG pCO2 POC ABG pO2 ABG pO2 ABG HCO3 ABG Base Excess ABG Hemoglobin VBG pH Oxyhemoglobin Sodium Potassium Chloride Carbon Dioxide BUN Creatinine Glucose POC Glucose 232 H 276 H 242 H Lactic Acid Calcium AST ALT Alkaline Phosphatase CK-MB (CK-2) CK-MB (CK-2) Rel Index Total Protein Albumin TSH Urine WBC (Auto) Salicylates 03/25/17 03/25/17 03/26/17 14:30 23:14 13:53 WBC RBC Hgb Hct MCV MCH RDW Plt Count Lymph % (Auto) [place] % (Auto) Eos % (Auto) Seg Neutrophils % Seg Neuts % (Manual) Lymphocytes % (Manual) Seg Neutrophils # Seg Neutrophils # Man Lymphocytes # (Manual) APTT POC ABG pH ABG pH POC ABG pCO2 POC ABG pO2 ABG pO2 ABG HCO3 ABG Base Excess ABG Hemoglobin VBG pH Oxyhemoglobin Sodium Potassium Chloride Carbon Dioxide BUN Creatinine Glucose POC Glucose 246 H 208 H 195 H Lactic Acid Calcium AST ALT Alkaline Phosphatase CK-MB (CK-2) CK-MB (CK-2) Rel Index Total Protein Albumin TSH Urine WBC (Auto) Salicylates 03/26/17 03/27/17 03/27/17 21:58 05:18 14:57 WBC RBC Hgb Hct MCV MCH RDW Plt Count Lymph % (Auto) [place] % (Auto) Eos % (Auto) Seg Neutrophils % Seg Neuts % (Manual) Lymphocytes % (Manual) Seg Neutrophils # Seg Neutrophils # Man Lymphocytes # (Manual) APTT POC ABG pH ABG pH POC ABG pCO2 POC ABG pO2 ABG pO2 ABG HCO3 ABG Base Excess ABG Hemoglobin VBG pH Oxyhemoglobin Sodium Potassium Chloride Carbon Dioxide BUN Creatinine Glucose POC Glucose 241 H 199 H 269 H Lactic Acid Calcium AST ALT Alkaline Phosphatase CK-MB (CK-2) CK-MB (CK-2) Rel Index Total Protein Albumin TSH Urine WBC (Auto) Salicylates 03/27/17 03/28/17 03/28/17 21:33 13:52 21:29 WBC RBC Hgb Hct MCV MCH RDW Plt Count Lymph % (Auto) [place] % (Auto) Eos % (Auto) Seg Neutrophils % Seg Neuts % (Manual) Lymphocytes % (Manual) Seg Neutrophils # Seg Neutrophils # Man Lymphocytes # (Manual) APTT POC ABG pH ABG pH POC ABG pCO2 POC ABG pO2 ABG pO2 ABG HCO3 ABG Base Excess ABG Hemoglobin VBG pH Oxyhemoglobin Sodium Potassium Chloride Carbon Dioxide BUN Creatinine Glucose POC Glucose 214 H 243 H 286 H Lactic Acid Calcium AST ALT Alkaline Phosphatase CK-MB (CK-2) CK-MB (CK-2) Rel Index Total Protein Albumin TSH Urine WBC (Auto) Salicylates 03/29/17 03/29/17 03/29/17 04:32 04:32 13:58 WBC RBC Hgb 10.6 L Hct 32.9 L MCV 78 L MCH 25 L RDW 17.6 H Plt Count Lymph % (Auto) 38.0 H [place] % (Auto) 9.7 H Eos % (Auto) Seg Neutrophils % Seg Neuts % (Manual) Lymphocytes % (Manual) Seg Neutrophils # Seg Neutrophils # Man Lymphocytes # (Manual) APTT POC ABG pH ABG pH POC ABG pCO2 POC ABG pO2 ABG pO2 ABG HCO3 ABG Base Excess ABG Hemoglobin VBG pH Oxyhemoglobin Sodium 132 L Potassium Chloride 94.0 L Carbon Dioxide BUN 28 H Creatinine 0.5 L Glucose 236 H POC Glucose 171 H Lactic Acid Calcium AST ALT 71 H Alkaline Phosphatase 391 H CK-MB (CK-2) CK-MB (CK-2) Rel Index Total Protein 8.3 H Albumin 2.9 L TSH Urine WBC (Auto) Salicylates 03/29/17 03/30/17 03/30/17 20:59 06:07 11:52 WBC RBC Hgb Hct MCV MCH RDW Plt Count Lymph % (Auto) [place] % (Auto) Eos % (Auto) Seg Neutrophils % Seg Neuts % (Manual) Lymphocytes % (Manual) Seg Neutrophils # Seg Neutrophils # Man Lymphocytes # (Manual) APTT POC ABG pH ABG pH POC ABG pCO2 POC ABG pO2 ABG pO2 ABG HCO3 ABG Base Excess ABG Hemoglobin VBG pH Oxyhemoglobin Sodium Potassium Chloride Carbon Dioxide BUN Creatinine Glucose POC Glucose 215 H 259 H 197 H Lactic Acid Calcium AST ALT Alkaline Phosphatase CK-MB (CK-2) CK-MB (CK-2) Rel Index Total Protein Albumin TSH Urine WBC (Auto) Salicylates 03/30/17 03/31/17 03/31/17 21:34 05:42 14:34 WBC RBC Hgb Hct MCV MCH RDW Plt Count Lymph % (Auto) [place] % (Auto) Eos % (Auto) Seg Neutrophils % Seg Neuts % (Manual) Lymphocytes % (Manual) Seg Neutrophils # Seg Neutrophils # Man Lymphocytes # (Manual) APTT POC ABG pH ABG pH POC ABG pCO2 POC ABG pO2 ABG pO2 ABG HCO3 ABG Base Excess ABG Hemoglobin VBG pH Oxyhemoglobin Sodium Potassium Chloride Carbon Dioxide BUN Creatinine Glucose POC Glucose 207 H 184 H 213 H Lactic Acid Calcium AST ALT Alkaline Phosphatase CK-MB (CK-2) CK-MB (CK-2) Rel Index Total Protein Albumin TSH Urine WBC (Auto) Salicylates 03/31/17 04/01/17 04/01/17 21:32 05:53 13:48 WBC RBC Hgb Hct MCV MCH RDW Plt Count Lymph % (Auto) [place] % (Auto) Eos % (Auto) Seg Neutrophils % Seg Neuts % (Manual) Lymphocytes % (Manual) Seg Neutrophils # Seg Neutrophils # Man Lymphocytes # (Manual) APTT POC ABG pH ABG pH POC ABG pCO2 POC ABG pO2 ABG pO2 ABG HCO3 ABG Base Excess ABG Hemoglobin VBG pH Oxyhemoglobin Sodium Potassium Chloride Carbon Dioxide BUN Creatinine Glucose POC Glucose 249 H 225 H 256 H Lactic Acid Calcium AST ALT Alkaline Phosphatase CK-MB (CK-2) CK-MB (CK-2) Rel Index Total Protein Albumin TSH Urine WBC (Auto) Salicylates 04/01/17 04/02/17 04/02/17 21:34 05:32 14:05 WBC RBC Hgb Hct MCV MCH RDW Plt Count Lymph % (Auto) [place] % (Auto) Eos % (Auto) Seg Neutrophils % Seg Neuts % (Manual) Lymphocytes % (Manual) Seg Neutrophils # Seg Neutrophils # Man Lymphocytes # (Manual) APTT POC ABG pH ABG pH POC ABG pCO2 POC ABG pO2 ABG pO2 ABG HCO3 ABG Base Excess ABG Hemoglobin VBG pH Oxyhemoglobin Sodium Potassium Chloride Carbon Dioxide BUN Creatinine Glucose POC Glucose 292 H 220 H 187 H Lactic Acid Calcium AST ALT Alkaline Phosphatase CK-MB (CK-2) CK-MB (CK-2) Rel Index Total Protein Albumin TSH Urine WBC (Auto) Salicylates 04/02/17 04/03/17 04/03/17 21:57 04:49 14:12 WBC RBC Hgb Hct MCV MCH RDW Plt Count Lymph % (Auto) [place] % (Auto) Eos % (Auto) Seg Neutrophils % Seg Neuts % (Manual) Lymphocytes % (Manual) Seg Neutrophils # Seg Neutrophils # Man Lymphocytes # (Manual) APTT POC ABG pH ABG pH POC ABG pCO2 POC ABG pO2 ABG pO2 ABG HCO3 ABG Base Excess ABG Hemoglobin VBG pH Oxyhemoglobin Sodium Potassium Chloride Carbon Dioxide BUN Creatinine Glucose POC Glucose 285 H 256 H 197 H Lactic Acid Calcium AST ALT Alkaline Phosphatase CK-MB (CK-2) CK-MB (CK-2) Rel Index Total Protein Albumin TSH Urine WBC (Auto) Salicylates 04/03/17 04/04/17 04/04/17 21:11 05:20 13:18 WBC RBC Hgb Hct MCV MCH RDW Plt Count Lymph % (Auto) [place] % (Auto) Eos % (Auto) Seg Neutrophils % Seg Neuts % (Manual) Lymphocytes % (Manual) Seg Neutrophils # Seg Neutrophils # Man Lymphocytes # (Manual) APTT POC ABG pH ABG pH POC ABG pCO2 POC ABG pO2 ABG pO2 ABG HCO3 ABG Base Excess ABG Hemoglobin VBG pH Oxyhemoglobin Sodium Potassium Chloride Carbon Dioxide BUN Creatinine Glucose POC Glucose 166 H 228 H 252 H Lactic Acid Calcium AST ALT Alkaline Phosphatase CK-MB (CK-2) CK-MB (CK-2) Rel Index Total Protein Albumin TSH Urine WBC (Auto) Salicylates 04/04/17 04/05/17 04/05/17 21:51 06:14 09:54 WBC RBC Hgb Hct MCV MCH RDW Plt Count Lymph % (Auto) [place] % (Auto) Eos % (Auto) Seg Neutrophils % Seg Neuts % (Manual) Lymphocytes % (Manual) Seg Neutrophils # Seg Neutrophils # Man Lymphocytes # (Manual) APTT POC ABG pH ABG pH POC ABG pCO2 POC ABG pO2 ABG pO2 ABG HCO3 ABG Base Excess ABG Hemoglobin VBG pH Oxyhemoglobin Sodium Potassium Chloride Carbon Dioxide BUN Creatinine Glucose POC Glucose 252 H 152 H 181 H Lactic Acid Calcium AST ALT Alkaline Phosphatase CK-MB (CK-2) CK-MB (CK-2) Rel Index Total Protein Albumin TSH Urine WBC (Auto) Salicylates 04/05/17 04/05/17 04/05/17 14:49 17:34 21:38 WBC RBC Hgb Hct MCV MCH RDW Plt Count Lymph % (Auto) [place] % (Auto) Eos % (Auto) Seg Neutrophils % Seg Neuts % (Manual) Lymphocytes % (Manual) Seg Neutrophils # Seg Neutrophils # Man Lymphocytes # (Manual) APTT POC ABG pH ABG pH POC ABG pCO2 POC ABG pO2 ABG pO2 ABG HCO3 ABG Base Excess ABG Hemoglobin VBG pH Oxyhemoglobin Sodium Potassium Chloride Carbon Dioxide BUN Creatinine Glucose POC Glucose 219 H 268 H 278 H Lactic Acid Calcium AST ALT Alkaline Phosphatase CK-MB (CK-2) CK-MB (CK-2) Rel Index Total Protein Albumin TSH Urine WBC (Auto) Salicylates 04/06/17 04/06/17 04/07/17 15:04 22:14 05:09 WBC RBC Hgb Hct MCV MCH RDW Plt Count Lymph % (Auto) [place] % (Auto) Eos % (Auto) Seg Neutrophils % Seg Neuts % (Manual) Lymphocytes % (Manual) Seg Neutrophils # Seg Neutrophils # Man Lymphocytes # (Manual) APTT POC ABG pH ABG pH POC ABG pCO2 POC ABG pO2 ABG pO2 ABG HCO3 ABG Base Excess ABG Hemoglobin VBG pH Oxyhemoglobin Sodium Potassium Chloride Carbon Dioxide BUN Creatinine Glucose POC Glucose 285 H 106 H 334 H Lactic Acid Calcium AST ALT Alkaline Phosphatase CK-MB (CK-2) CK-MB (CK-2) Rel Index Total Protein Albumin TSH Urine WBC (Auto) Salicylates 04/07/17 04/07/17 04/08/17 14:45 21:48 05:28 WBC RBC Hgb Hct MCV MCH RDW Plt Count Lymph % (Auto) [place] % (Auto) Eos % (Auto) Seg Neutrophils % Seg Neuts % (Manual) Lymphocytes % (Manual) Seg Neutrophils # Seg Neutrophils # Man Lymphocytes # (Manual) APTT POC ABG pH ABG pH POC ABG pCO2 POC ABG pO2 ABG pO2 ABG HCO3 ABG Base Excess ABG Hemoglobin VBG pH Oxyhemoglobin Sodium Potassium Chloride Carbon Dioxide BUN Creatinine Glucose POC Glucose 173 H 304 H 314 H Lactic Acid Calcium AST ALT Alkaline Phosphatase CK-MB (CK-2) CK-MB (CK-2) Rel Index Total Protein Albumin TSH Urine WBC (Auto) Salicylates 04/08/17 04/08/17 04/08/17 15:57 16:17 22:21 WBC RBC Hgb Hct MCV MCH RDW Plt Count Lymph % (Auto) [place] % (Auto) Eos % (Auto) Seg Neutrophils % Seg Neuts % (Manual) Lymphocytes % (Manual) Seg Neutrophils # Seg Neutrophils # Man Lymphocytes # (Manual) APTT POC ABG pH ABG pH POC ABG pCO2 POC ABG pO2 ABG pO2 ABG HCO3 ABG Base Excess ABG Hemoglobin VBG pH Oxyhemoglobin Sodium Potassium Chloride Carbon Dioxide BUN Creatinine Glucose POC Glucose 356 H 337 H 323 H Lactic Acid Calcium AST ALT Alkaline Phosphatase CK-MB (CK-2) CK-MB (CK-2) Rel Index Total Protein Albumin TSH Urine WBC (Auto) Salicylates 04/09/17 04/09/17 04/09/17 06:19 15:30 21:52 WBC RBC Hgb Hct MCV MCH RDW Plt Count Lymph % (Auto) [place] % (Auto) Eos % (Auto) Seg Neutrophils % Seg Neuts % (Manual) Lymphocytes % (Manual) Seg Neutrophils # Seg Neutrophils # Man Lymphocytes # (Manual) APTT POC ABG pH ABG pH POC ABG pCO2 POC ABG pO2 ABG pO2 ABG HCO3 ABG Base Excess ABG Hemoglobin VBG pH Oxyhemoglobin Sodium Potassium Chloride Carbon Dioxide BUN Creatinine Glucose POC Glucose 340 H 332 H 341 H Lactic Acid Calcium AST ALT Alkaline Phosphatase CK-MB (CK-2) CK-MB (CK-2) Rel Index Total Protein Albumin TSH Urine WBC (Auto) Salicylates 04/10/17 04/10/17 04/10/17 01:53 05:33 17:40 WBC RBC Hgb Hct MCV MCH RDW Plt Count Lymph % (Auto) [place] % (Auto) Eos % (Auto) Seg Neutrophils % Seg Neuts % (Manual) Lymphocytes % (Manual) Seg Neutrophils # Seg Neutrophils # Man Lymphocytes # (Manual) APTT POC ABG pH ABG pH POC ABG pCO2 POC ABG pO2 ABG pO2 ABG HCO3 ABG Base Excess ABG Hemoglobin VBG pH Oxyhemoglobin Sodium Potassium Chloride Carbon Dioxide BUN Creatinine Glucose POC Glucose 261 H 277 H 304 H Lactic Acid Calcium AST ALT Alkaline Phosphatase CK-MB (CK-2) CK-MB (CK-2) Rel Index Total Protein Albumin TSH Urine WBC (Auto) Salicylates 04/10/17 04/11/17 04/11/17 21:29 05:28 14:02 WBC RBC Hgb Hct MCV MCH RDW Plt Count Lymph % (Auto) [place] % (Auto) Eos % (Auto) Seg Neutrophils % Seg Neuts % (Manual) Lymphocytes % (Manual) Seg Neutrophils # Seg Neutrophils # Man Lymphocytes # (Manual) APTT POC ABG pH ABG pH POC ABG pCO2 POC ABG pO2 ABG pO2 ABG HCO3 ABG Base Excess ABG Hemoglobin VBG pH Oxyhemoglobin Sodium Potassium Chloride Carbon Dioxide BUN Creatinine Glucose POC Glucose 361 H 204 H 236 H Lactic Acid Calcium AST ALT Alkaline Phosphatase CK-MB (CK-2) CK-MB (CK-2) Rel Index Total Protein Albumin TSH Urine WBC (Auto) Salicylates 04/11/17 04/12/17 04/12/17 21:43 05:00 11:53 WBC RBC Hgb Hct MCV MCH RDW Plt Count Lymph % (Auto) [place] % (Auto) Eos % (Auto) Seg Neutrophils % Seg Neuts % (Manual) Lymphocytes % (Manual) Seg Neutrophils # Seg Neutrophils # Man Lymphocytes # (Manual) APTT POC ABG pH ABG pH POC ABG pCO2 POC ABG pO2 ABG pO2 ABG HCO3 ABG Base Excess ABG Hemoglobin VBG pH Oxyhemoglobin Sodium Potassium Chloride Carbon Dioxide BUN Creatinine Glucose POC Glucose 287 H 294 H 265 H Lactic Acid Calcium AST ALT Alkaline Phosphatase CK-MB (CK-2) CK-MB (CK-2) Rel Index Total Protein Albumin TSH Urine WBC (Auto) Salicylates 04/12/17 04/12/17 04/13/17 21:21 23:44 06:05 WBC RBC Hgb Hct MCV MCH RDW Plt Count Lymph % (Auto) [place] % (Auto) Eos % (Auto) Seg Neutrophils % Seg Neuts % (Manual) Lymphocytes % (Manual) Seg Neutrophils # Seg Neutrophils # Man Lymphocytes # (Manual) APTT POC ABG pH ABG pH POC ABG pCO2 POC ABG pO2 ABG pO2 ABG HCO3 ABG Base Excess ABG Hemoglobin VBG pH Oxyhemoglobin Sodium Potassium Chloride Carbon Dioxide BUN Creatinine Glucose POC Glucose 289 H 348 H 326 H Lactic Acid Calcium AST ALT Alkaline Phosphatase CK-MB (CK-2) CK-MB (CK-2) Rel Index Total Protein Albumin TSH Urine WBC (Auto) Salicylates 04/13/17 04/13/17 04/14/17 13:54 21:15 05:49 WBC RBC Hgb Hct MCV MCH RDW Plt Count Lymph % (Auto) [place] % (Auto) Eos % (Auto) Seg Neutrophils % Seg Neuts % (Manual) Lymphocytes % (Manual) Seg Neutrophils # Seg Neutrophils # Man Lymphocytes # (Manual) APTT POC ABG pH ABG pH POC ABG pCO2 POC ABG pO2 ABG pO2 ABG HCO3 ABG Base Excess ABG Hemoglobin VBG pH Oxyhemoglobin Sodium Potassium Chloride Carbon Dioxide BUN Creatinine Glucose POC Glucose 326 H 263 H 319 H Lactic Acid Calcium AST ALT Alkaline Phosphatase CK-MB (CK-2) CK-MB (CK-2) Rel Index Total Protein Albumin TSH Urine WBC (Auto) Salicylates 04/14/17 04/14/17 04/15/17 13:26 23:13 14:24 WBC RBC Hgb Hct MCV MCH RDW Plt Count Lymph % (Auto) [place] % (Auto) Eos % (Auto) Seg Neutrophils % Seg Neuts % (Manual) Lymphocytes % (Manual) Seg Neutrophils # Seg Neutrophils # Man Lymphocytes # (Manual) APTT POC ABG pH ABG pH POC ABG pCO2 POC ABG pO2 ABG pO2 ABG HCO3 ABG Base Excess ABG Hemoglobin VBG pH Oxyhemoglobin Sodium Potassium Chloride Carbon Dioxide BUN Creatinine Glucose POC Glucose 207 H 365 H 308 H Lactic Acid Calcium AST ALT Alkaline Phosphatase CK-MB (CK-2) CK-MB (CK-2) Rel Index Total Protein Albumin TSH Urine WBC (Auto) Salicylates 04/15/17 04/15/17 04/15/17 21:00 22:18 23:12 WBC RBC Hgb Hct MCV MCH RDW Plt Count Lymph % (Auto) [place] % (Auto) Eos % (Auto) Seg Neutrophils % Seg Neuts % (Manual) Lymphocytes % (Manual) Seg Neutrophils # Seg Neutrophils # Man Lymphocytes # (Manual) APTT POC ABG pH ABG pH POC ABG pCO2 POC ABG pO2 ABG pO2 ABG HCO3 ABG Base Excess ABG Hemoglobin VBG pH Oxyhemoglobin Sodium Potassium Chloride Carbon Dioxide BUN Creatinine Glucose POC Glucose 407 H 287 H 325 H Lactic Acid Calcium AST ALT Alkaline Phosphatase CK-MB (CK-2) CK-MB (CK-2) Rel Index Total Protein Albumin TSH Urine WBC (Auto) Salicylates 04/16/17 04/16/17 04/16/17 05:30 10:07 14:26 WBC RBC Hgb Hct MCV MCH RDW Plt Count Lymph % (Auto) [place] % (Auto) Eos % (Auto) Seg Neutrophils % Seg Neuts % (Manual) Lymphocytes % (Manual) Seg Neutrophils # Seg Neutrophils # Man Lymphocytes # (Manual) APTT POC ABG pH ABG pH POC ABG pCO2 POC ABG pO2 ABG pO2 ABG HCO3 ABG Base Excess ABG Hemoglobin VBG pH Oxyhemoglobin Sodium Potassium Chloride Carbon Dioxide BUN Creatinine Glucose POC Glucose 304 H 217 H 344 H Lactic Acid Calcium AST ALT Alkaline Phosphatase CK-MB (CK-2) CK-MB (CK-2) Rel Index Total Protein Albumin TSH Urine WBC (Auto) Salicylates 04/16/17 04/17/17 04/17/17 21:25 05:12 14:19 WBC RBC Hgb Hct MCV MCH RDW Plt Count Lymph % (Auto) [place] % (Auto) Eos % (Auto) Seg Neutrophils % Seg Neuts % (Manual) Lymphocytes % (Manual) Seg Neutrophils # Seg Neutrophils # Man Lymphocytes # (Manual) APTT POC ABG pH ABG pH POC ABG pCO2 POC ABG pO2 ABG pO2 ABG HCO3 ABG Base Excess ABG Hemoglobin VBG pH Oxyhemoglobin Sodium Potassium Chloride Carbon Dioxide BUN Creatinine Glucose POC Glucose 305 H 233 H 324 H Lactic Acid Calcium AST ALT Alkaline Phosphatase CK-MB (CK-2) CK-MB (CK-2) Rel Index Total Protein Albumin TSH Urine WBC (Auto) Salicylates 04/17/17 04/18/17 04/18/17 21:42 06:21 14:08 WBC RBC Hgb Hct MCV MCH RDW Plt Count Lymph % (Auto) [place] % (Auto) Eos % (Auto) Seg Neutrophils % Seg Neuts % (Manual) Lymphocytes % (Manual) Seg Neutrophils # Seg Neutrophils # Man Lymphocytes # (Manual) APTT POC ABG pH ABG pH POC ABG pCO2 POC ABG pO2 ABG pO2 ABG HCO3 ABG Base Excess ABG Hemoglobin VBG pH Oxyhemoglobin Sodium Potassium Chloride Carbon Dioxide BUN Creatinine Glucose POC Glucose 270 H 308 H 290 H Lactic Acid Calcium AST ALT Alkaline Phosphatase CK-MB (CK-2) CK-MB (CK-2) Rel Index Total Protein Albumin TSH Urine WBC (Auto) Salicylates 04/18/17 04/19/17 04/19/17 21:50 05:20 13:59 WBC RBC Hgb Hct MCV MCH RDW Plt Count Lymph % (Auto) [place] % (Auto) Eos % (Auto) Seg Neutrophils % Seg Neuts % (Manual) Lymphocytes % (Manual) Seg Neutrophils # Seg Neutrophils # Man Lymphocytes # (Manual) APTT POC ABG pH ABG pH POC ABG pCO2 POC ABG pO2 ABG pO2 ABG HCO3 ABG Base Excess ABG Hemoglobin VBG pH Oxyhemoglobin Sodium Potassium Chloride Carbon Dioxide BUN Creatinine Glucose POC Glucose 167 H 372 H 321 H Lactic Acid Calcium AST ALT Alkaline Phosphatase CK-MB (CK-2) CK-MB (CK-2) Rel Index Total Protein Albumin TSH Urine WBC (Auto) Salicylates 04/19/17 04/20/17 04/20/17 21:16 14:18 21:34 WBC RBC Hgb Hct MCV MCH RDW Plt Count Lymph % (Auto) [place] % (Auto) Eos % (Auto) Seg Neutrophils % Seg Neuts % (Manual) Lymphocytes % (Manual) Seg Neutrophils # Seg Neutrophils # Man Lymphocytes # (Manual) APTT POC ABG pH ABG pH POC ABG pCO2 POC ABG pO2 ABG pO2 ABG HCO3 ABG Base Excess ABG Hemoglobin VBG pH Oxyhemoglobin Sodium Potassium Chloride Carbon Dioxide BUN Creatinine Glucose POC Glucose 182 H 218 H 121 H Lactic Acid Calcium AST ALT Alkaline Phosphatase CK-MB (CK-2) CK-MB (CK-2) Rel Index Total Protein Albumin TSH Urine WBC (Auto) Salicylates 04/21/17 04/21/17 00:08 05:16 WBC RBC Hgb Hct MCV MCH RDW Plt Count Lymph % (Auto) [place] % (Auto) Eos % (Auto) Seg Neutrophils % Seg Neuts % (Manual) Lymphocytes % (Manual) Seg Neutrophils # Seg Neutrophils # Man Lymphocytes # (Manual) APTT POC ABG pH ABG pH POC ABG pCO2 POC ABG pO2 ABG pO2 ABG HCO3 ABG Base Excess ABG Hemoglobin VBG pH Oxyhemoglobin Sodium Potassium Chloride Carbon Dioxide BUN Creatinine Glucose POC Glucose 128 H 120 H Lactic Acid Calcium AST ALT Alkaline Phosphatase CK-MB (CK-2) CK-MB (CK-2) Rel Index Total Protein Albumin TSH Urine WBC (Auto) Salicylates
[2017-04-21] MEDS: PEPCID PO SCH ×2 (13:49→23:38)
[2017-04-22] MEDS: HumuLIN R SUB-Q SCH ×3 (10:54→22:00)
[2017-04-22] MEDS: PEPCID PO SCH ×2 (11:00→22:28)
[2017-04-22] MEDS: HEPARIN SUB-Q SCH ×2 (11:00→22:28)
[2017-04-22] MEDS: LEVEMIR (NF) SUB-Q SCH (11:01)
[2017-04-22] MEDS: SYNTHROID PO SCH (11:03)
--- NOTE | 2017-04-22 16:10 | Progress Note ---
Assessment and Plan 51 YO Male with CKD,HTN, DM presents to ED after found down and unresponsive by his neighbor, who subsequently called EMS. Upon arrival, patient found unresponsive on the floor with a serum glucose of 21, patient has a known history of alcohol abuse and delirium tremens. The patient was administered D5 approximate 500 mls during transport without change in mental status/level of consciousness. Pt seen and evaluated in ED was was found to be unable to protect his airway. Pt intubated and placed on vent support. Pt found to have evidence of hypothyroidism. 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 Pulm. following - UTI with klebsiella, treated ( Cx + on 01/28), then with ESBL likely colonization - Hyponatremia: corrected - Hypothyroidism: On levothyroxine - IDDM : continue with SSI - Hypertension: Controlled - Cont supportive care and current medication. Monitor vitals, - Patient is DNR- needs guardianship from the state to give consent for further management, as has no family to give consent. Poor prognosis, Subjective Date of service: 04/22/17 Principal diagnosis: Acute respiratory failure,encephalopathy Interval history: Remains unresponsive. No overnight event reported to me by patient's nurse. Objective - Constitutional Vitals: Vital Signs - 12hr 04/22/17 04/22/17 04/22/17 08:00 08:44 12:00 Temperature 100.4 F H 99 F Pulse Rate 102 H Respiratory Rate Blood Pressure 92/60 O2 Sat by Pulse 96 Oximetry 04/22/17 12:28 Temperature Pulse Rate 86 Respiratory 21 Rate Blood Pressure 99/65 O2 Sat by Pulse 97 Oximetry General appearance: Present: no acute distress, well-nourished - EENT Eyes: PERRL, EOM intact, irregular pupil ENT: hearing intact - Neck Neck: supple, normal ROM - Respiratory Respiratory effort: normal Respiratory: bilateral: diminished - Cardiovascular Rhythm: regular Heart Sounds: Present: S1 & S2. Absent: gallop, rub Extremities: pulses intact, No edema, normal color, Full ROM - Gastrointestinal General gastrointestinal: Present: soft, non-tender, non-distended, normal bowel sounds - Integumentary Integumentary: clear, warm, dry - Neurologic Neurologic: other (non vebal) - Psychiatric Psychiatric: memory intact, appropriate mood/affect, intact judgment & insight - Labs CBC & Chem 7: 03/29/17 04:32 03/29/17 04:32 Labs: Abnormal lab results 04/21/17 04/21/17 04/22/17 Range/Units 12:41 23:40 14:12 POC Glucose 216 H 157 H 242 H (70-105)
[2017-04-23] MEDS: HumuLIN R SUB-Q SCH ×4 (06:00→22:00)
[2017-04-23] MEDS: SYNTHROID PO SCH (06:42)
--- NOTE | 2017-04-23 08:54 | Progress Note ---
Assessment and Plan 51 YO Male with CKD,HTN, DM presents to ED after found down and unresponsive by his neighbor, who subsequently called EMS. Upon arrival, patient found unresponsive on the floor with a serum glucose of 21, patient has a known history of alcohol abuse and delirium tremens. The patient was administered D5 approximate 500 mls during transport without change in mental status/level of consciousness. Pt seen and evaluated in ED was was found to be unable to protect his airway. Pt intubated and placed on vent support. Pt found to have evidence of hypothyroidism. 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 Pulm. following - UTI with klebsiella, treated ( Cx + on 01/28), then with ESBL likely colonization - Hyponatremia: corrected - Hypothyroidism: On levothyroxine - IDDM : continue with SSI - Hypertension: Controlled - Cont supportive care and current medication. Monitor vitals, - Patient is DNR- needs guardianship from the state to give consent for further management, as has no family to give consent. We will check labs. Poor prognosis, Subjective Date of service: 04/23/17 Principal diagnosis: Acute respiratory failure,encephalopathy Interval history: Remains unresponsive. Consulted with patient's nurse. No overnight event reported to me by patient's nurse. Consultants as well as laboratory and radiological data Objective - Exam Narrative Exam: Constitutional: Intubated on vent supported. In no distress Head: Normocephalic atraumatic Eyes: Pupils are equal round and reactive to light Nose: No enlarged turbinates, no septal deviation. Mouth: Moist mucous membranes. Neck: Supple no thyromegaly. No bruit. No JVD Heart: Regular rate and rhythm, S1-S2 abnormal. No rubs murmurs or gallop Lungs: Clear to auscultation bilaterally no rales or rhonchi Abdomen: Soft nontender both his upper extremities no edema orclubbing. Extremities: No edema no cyanosis and no clubbing. Neuro: Unresponsive . Skin: No rashes no hyperemic spots - Constitutional Vitals: Vital Signs - 12hr 04/22/17 04/22/17 04/22/17 21:43 22:00 23:34 Temperature 94.5 F L Pulse Rate 75 75 Respiratory 15 15 Rate Blood Pressure 117/76 117/76 O2 Sat by Pulse 98 98 Oximetry 04/23/17 04/23/17 04/23/17 00:00 00:03 00:20 Temperature 97.3 F L Pulse Rate 74 76 Respiratory 17 Rate Blood Pressure 113/73 113/73 O2 Sat by Pulse 98 99 Oximetry 04/23/17 04/23/17 04/23/17 02:00 04:00 04:06 Temperature 97.5 F L Pulse Rate 76 76 77 Respiratory 15 14 Rate Blood Pressure 113/73 117/77 117/77 O2 Sat by Pulse 98 98 99 Oximetry 04/23/17 04/23/17 06:00 08:44 Temperature 98.3 F Pulse Rate 78 Respiratory 16 Rate Blood Pressure 117/77 O2 Sat by Pulse 98 Oximetry - Labs CBC & Chem 7: 03/29/17 04:32 03/29/17 04:32 Labs: Abnormal lab results 04/22/17 04/22/17 04/23/17 Range/Units 14:12 23:38 05:18 POC Glucose 242 H 117 H 163 H (70-105)
[2017-04-23] MEDS: PEPCID PO SCH ×2 (09:36→22:00)
[2017-04-23] MEDS: HEPARIN SUB-Q SCH ×2 (09:36→22:00)
[2017-04-23] MEDS: LEVEMIR (NF) SUB-Q SCH (09:37)
--- NOTE | 2017-04-23 17:18 | Progress Note ---
Assessment and Plan acute respiratory failure secondary to metabolic event, prolonged vent support Hypoglycemia/hypothermia -> suspect due to too much insulin Hypothyroidism; doubt myxedema coma with normal free T4 UTI/SIRS.Resolved Metabolic encephalopathy. Residual vegetative state,sever.No improvement Fever Rec: Monitor fever, if persistent again, BC's Update CXR Comfort care for now ,no changes, per chart/notes; waiting from administrative notification regarding assigning guardianship,care proxy Subjective Date of service: 04/23/17 Principal diagnosis: Acute respiratory failure,encephalopathy Interval history: No change remained unresponsive on mechanical ventilator Objective Vital Signs - 12hr 04/23/17 04/23/17 04/23/17 06:00 08:00 08:44 Temperature 98.3 F Pulse Rate 78 83 Respiratory 16 12 Rate Blood Pressure 117/77 121/82 O2 Sat by Pulse 98 96 Oximetry 04/23/17 04/23/17 04/23/17 09:55 10:00 11:30 Temperature 98.1 F Pulse Rate 80 80 Respiratory 15 Rate Blood Pressure 116/74 116/74 O2 Sat by Pulse 98 98 Oximetry 04/23/17 04/23/17 04/23/17 12:00 13:00 14:00 Temperature Pulse Rate 116 H 106 H 102 H Respiratory 20 12 Rate Blood Pressure 116/74 106/70 173/98 O2 Sat by Pulse 96 100 95 Oximetry 04/23/17 16:00 Temperature 98.6 F Pulse Rate Respiratory Rate Blood Pressure O2 Sat by Pulse Oximetry Constitutional: no acute distress, alert Eyes: non-icteric ENT: oropharynx moist, other (ETT in position) Neck: supple, no JVD Effort: normal Ascultation: Bilateral: clear, diminished breath sounds Cardiovascular: regular rate and rhythm (no mrg) Gastrointestinal: normoactive bowel sounds, soft, non-tender, non-distended Integumentary: normal Extremities: no cyanosis, no edema, pink and warm Neurologic: pupils equal and round, other (not following commands,mild response to pain) Psychiatric: other (unable to obtain) CBC and BMP: 03/29/17 04:32 03/29/17 04:32 ABG, PT/INR, D-dimer: ABG POC ABG pH 7.442 (7.35-7.45) 01/31/17 18:55 ABG pH 7.420 pH Units (7.350-7.450) 01/17/17 04:35 POC ABG pCO2 32.8 (35-45) L 01/31/17 18:55 ABG pCO2 34.5 mm Hg 01/17/17 04:35 POC ABG pO2 82 (80-105) 01/31/17 18:55 ABG pO2 160.3 mm Hg (80.0-90.0) H 01/17/17 04:35 POC ABG HCO3 22.4 01/31/17 18:55 POC ABG Total CO2 23 01/31/17 18:55 POC ABG O2 Sat 97 01/31/17 18:55 ABG O2 Saturation 99.0 % (95.0-99.0) 01/17/17 04:35 PT/INR, D-dimer PT 14.1 Sec. (12.2-14.9) 01/17/17 04:10 INR 1.04 (0.87-1.13) 01/17/17 04:10 Abnormal lab findings: Abnormal Labs 01/09/17 01/09/17 01/09/17 10:16 10:16 10:16 WBC RBC Hgb 9.7 L Hct 28.4 L MCV 76 L MCH 26 L RDW 17.2 H Plt Count 448 H Lymph % (Auto) Hill % (Auto) Eos % (Auto) Seg Neutrophils % 79.5 H Seg Neuts % (Manual) Lymphocytes % (Manual) Seg Neutrophils # Seg Neutrophils # Man Lymphocytes # (Manual) APTT 39.6 H POC ABG pH ABG pH POC ABG pCO2 POC ABG pO2 ABG pO2 ABG HCO3 ABG Base Excess ABG Hemoglobin VBG pH Oxyhemoglobin Sodium 132 L Potassium Chloride 96.7 L Carbon Dioxide 21 L BUN 34 H Creatinine Glucose POC Glucose Lactic Acid Calcium 8.3 L AST ALT Alkaline Phosphatase 151 H CK-MB (CK-2) 7.1 H CK-MB (CK-2) Rel Index 5.2 H Total Protein Albumin 3.3 L TSH Urine WBC (Auto) Salicylates 01/09/17 01/09/17 01/09/17 10:16 10:16 10:16 WBC RBC Hgb Hct MCV MCH RDW Plt Count Lymph % (Auto) Hill % (Auto) Eos % (Auto) Seg Neutrophils % Seg Neuts % (Manual) Lymphocytes % (Manual) Seg Neutrophils # Seg Neutrophils # Man Lymphocytes # (Manual) APTT POC ABG pH ABG pH POC ABG pCO2 POC ABG pO2 ABG pO2 ABG HCO3 ABG Base Excess ABG Hemoglobin VBG pH 7.284 L Oxyhemoglobin Sodium Potassium Chloride Carbon Dioxide BUN Creatinine Glucose POC Glucose Lactic Acid Calcium AST ALT Alkaline Phosphatase CK-MB (CK-2) CK-MB (CK-2) Rel Index Total Protein Albumin TSH 52.800 H Urine WBC (Auto) Salicylates < 0.3 L 01/09/17 01/09/17 01/09/17 10:23 11:14 12:49 WBC RBC Hgb Hct MCV MCH RDW Plt Count Lymph % (Auto) Hill % (Auto) Eos % (Auto) Seg Neutrophils % Seg Neuts % (Manual) Lymphocytes % (Manual) Seg Neutrophils # Seg Neutrophils # Man Lymphocytes # (Manual) APTT POC ABG pH ABG pH POC ABG pCO2 POC ABG pO2 643 H ABG pO2 ABG HCO3 ABG Base Excess ABG Hemoglobin VBG pH Oxyhemoglobin Sodium Potassium Chloride Carbon Dioxide BUN Creatinine Glucose POC Glucose < 40 L Lactic Acid Calcium AST ALT Alkaline Phosphatase CK-MB (CK-2) CK-MB (CK-2) Rel Index Total Protein Albumin TSH Urine WBC (Auto) 61.0 H Salicylates 01/09/17 01/09/17 01/09/17 13:13 14:21 15:09 WBC RBC Hgb Hct MCV MCH RDW Plt Count Lymph % (Auto) Hill % (Auto) Eos % (Auto) Seg Neutrophils % Seg Neuts % (Manual) Lymphocytes % (Manual) Seg Neutrophils # Seg Neutrophils # Man Lymphocytes # (Manual) APTT POC ABG pH ABG pH POC ABG pCO2 POC ABG pO2 ABG pO2 ABG HCO3 ABG Base Excess ABG Hemoglobin VBG pH Oxyhemoglobin Sodium Potassium Chloride Carbon Dioxide BUN Creatinine Glucose POC Glucose 128 H 65 L 120 H Lactic Acid Calcium AST ALT Alkaline Phosphatase CK-MB (CK-2) CK-MB (CK-2) Rel Index Total Protein Albumin TSH Urine WBC (Auto) Salicylates 01/09/17 01/09/17 01/10/17 16:28 17:14 04:30 WBC 24.1 H RBC 3.38 L Hgb 8.5 L Hct 26.0 L MCV 77 L MCH 25 L RDW 17.9 H Plt Count 474 H Lymph % (Auto) Hill % (Auto) Eos % (Auto) Seg Neutrophils % Seg Neuts % (Manual) 88.0 H Lymphocytes % (Manual) 4.0 L Seg Neutrophils # Seg Neutrophils # Man 21.2 H Lymphocytes # (Manual) 1.0 L APTT POC ABG pH ABG pH POC ABG pCO2 POC ABG pO2 ABG pO2 ABG HCO3 ABG Base Excess ABG Hemoglobin VBG pH Oxyhemoglobin Sodium Potassium Chloride Carbon Dioxide BUN Creatinine Glucose POC Glucose 44 L 112 H Lactic Acid Calcium AST ALT Alkaline Phosphatase CK-MB (CK-2) CK-MB (CK-2) Rel Index Total Protein Albumin TSH Urine WBC (Auto) Salicylates 01/10/17 01/10/17 01/10/17 04:30 05:41 05:45 WBC RBC Hgb Hct MCV MCH RDW Plt Count Lymph % (Auto) Hill % (Auto) Eos % (Auto) Seg Neutrophils % Seg Neuts % (Manual) Lymphocytes % (Manual) Seg Neutrophils # Seg Neutrophils # Man Lymphocytes # (Manual) APTT POC ABG pH ABG pH POC ABG pCO2 26.6 L POC ABG pO2 207 H ABG pO2 ABG HCO3 ABG Base Excess ABG Hemoglobin VBG pH Oxyhemoglobin Sodium Potassium Chloride Carbon Dioxide 17 L BUN 27 H Creatinine Glucose POC Glucose 68 L Lactic Acid Calcium 7.5 L AST ALT Alkaline Phosphatase CK-MB (CK-2) CK-MB (CK-2) Rel Index Total Protein Albumin TSH Urine WBC (Auto) Salicylates 01/10/17 01/10/17 01/10/17 07:47 10:50 13:41 WBC RBC Hgb Hct MCV MCH RDW Plt Count Lymph % (Auto) Hill % (Auto) Eos % (Auto) Seg Neutrophils % Seg Neuts % (Manual) Lymphocytes % (Manual) Seg Neutrophils # Seg Neutrophils # Man Lymphocytes # (Manual) APTT POC ABG pH ABG pH POC ABG pCO2 POC ABG pO2 ABG pO2 ABG HCO3 ABG Base Excess ABG Hemoglobin VBG pH Oxyhemoglobin Sodium Potassium Chloride Carbon Dioxide BUN Creatinine Glucose POC Glucose 148 H 165 H 114 H Lactic Acid Calcium AST ALT Alkaline Phosphatase CK-MB (CK-2) CK-MB (CK-2) Rel Index Total Protein Albumin TSH Urine WBC (Auto) Salicylates 01/10/17 01/10/17 01/10/17 20:20 21:39 23:24 WBC RBC Hgb Hct MCV MCH RDW Plt Count Lymph % (Auto) Hill % (Auto) Eos % (Auto) Seg Neutrophils % Seg Neuts % (Manual) Lymphocytes % (Manual) Seg Neutrophils # Seg Neutrophils # Man Lymphocytes # (Manual) APTT POC ABG pH ABG pH POC ABG pCO2 POC ABG pO2 ABG pO2 ABG HCO3 ABG Base Excess ABG Hemoglobin VBG pH Oxyhemoglobin Sodium Potassium Chloride Carbon Dioxide BUN Creatinine Glucose POC Glucose 150 H 175 H 155 H Lactic Acid Calcium AST ALT Alkaline Phosphatase CK-MB (CK-2) CK-MB (CK-2) Rel Index Total Protein Albumin TSH Urine WBC (Auto) Salicylates 01/11/17 01/11/17 01/11/17 00:19 04:06 05:20 WBC 15.2 H RBC 3.40 L Hgb 8.9 L Hct 26.3 L MCV 78 L MCH 26 L RDW 18.6 H Plt Count 462 H Lymph % (Auto) 13.2 L Hill % (Auto) Eos % (Auto) Seg Neutrophils % 80.8 H Seg Neuts % (Manual) Lymphocytes % (Manual) Seg Neutrophils # 12.3 H Seg Neutrophils # Man Lymphocytes # (Manual) APTT POC ABG pH 7.463 H ABG pH POC ABG pCO2 26.2 L POC ABG pO2 185 H ABG pO2 ABG HCO3 ABG Base Excess ABG Hemoglobin VBG pH Oxyhemoglobin Sodium Potassium Chloride Carbon Dioxide BUN Creatinine Glucose POC Glucose 163 H Lactic Acid Calcium AST ALT Alkaline Phosphatase CK-MB (CK-2) CK-MB (CK-2) Rel Index Total Protein Albumin TSH Urine WBC (Auto) Salicylates 01/11/17 01/11/17 01/11/17 05:20 06:21 07:57 WBC RBC Hgb Hct MCV MCH RDW Plt Count Lymph % (Auto) Hill % (Auto) Eos % (Auto) Seg Neutrophils % Seg Neuts % (Manual) Lymphocytes % (Manual) Seg Neutrophils # Seg Neutrophils # Man Lymphocytes # (Manual) APTT POC ABG pH ABG pH POC ABG pCO2 POC ABG pO2 ABG pO2 ABG HCO3 ABG Base Excess ABG Hemoglobin VBG pH Oxyhemoglobin Sodium Potassium 3.4 L Chloride 111.5 H Carbon Dioxide 17 L BUN Creatinine Glucose 147 H POC Glucose 139 H 188 H Lactic Acid Calcium 8.0 L AST ALT Alkaline Phosphatase CK-MB (CK-2) CK-MB (CK-2) Rel Index Total Protein Albumin TSH Urine WBC (Auto) Salicylates 01/11/17 01/11/17 01/11/17 11:46 16:50 23:15 WBC RBC Hgb Hct MCV MCH RDW Plt Count Lymph % (Auto) Hill % (Auto) Eos % (Auto) Seg Neutrophils % Seg Neuts % (Manual) Lymphocytes % (Manual) Seg Neutrophils # Seg Neutrophils # Man Lymphocytes # (Manual) APTT POC ABG pH ABG pH POC ABG pCO2 POC ABG pO2 ABG pO2 ABG HCO3 ABG Base Excess ABG Hemoglobin VBG pH Oxyhemoglobin Sodium Potassium Chloride Carbon Dioxide BUN Creatinine Glucose POC Glucose 199 H 235 H 155 H Lactic Acid Calcium AST ALT Alkaline Phosphatase CK-MB (CK-2) CK-MB (CK-2) Rel Index Total Protein Albumin TSH Urine WBC (Auto) Salicylates 01/12/17 01/12/17 01/12/17 05:02 06:56 14:50 WBC RBC Hgb Hct MCV MCH RDW Plt Count Lymph % (Auto) Hill % (Auto) Eos % (Auto) Seg Neutrophils % Seg Neuts % (Manual) Lymphocytes % (Manual) Seg Neutrophils # Seg Neutrophils # Man Lymphocytes # (Manual) APTT POC ABG pH ABG pH POC ABG pCO2 28.0 L POC ABG pO2 178 H ABG pO2 ABG HCO3 ABG Base Excess ABG Hemoglobin VBG pH Oxyhemoglobin Sodium Potassium Chloride Carbon Dioxide BUN Creatinine Glucose POC Glucose 119 H 164 H Lactic Acid Calcium AST ALT Alkaline Phosphatase CK-MB (CK-2) CK-MB (CK-2) Rel Index Total Protein Albumin TSH Urine WBC (Auto) Salicylates 01/13/17 01/13/17 01/13/17 03:37 03:37 04:26 WBC RBC 3.61 L Hgb 9.3 L Hct 28.0 L MCV 78 L MCH 26 L RDW 18.2 H Plt Count Lymph % (Auto) Hill % (Auto) Eos % (Auto) Seg Neutrophils % Seg Neuts % (Manual) Lymphocytes % (Manual) Seg Neutrophils # Seg Neutrophils # Man Lymphocytes # (Manual) APTT POC ABG pH 7.485 H ABG pH POC ABG pCO2 25.4 L POC ABG pO2 73 L ABG pO2 ABG HCO3 ABG Base Excess ABG Hemoglobin VBG pH Oxyhemoglobin Sodium Potassium Chloride 112.4 H Carbon Dioxide 19 L BUN Creatinine Glucose 118 H POC Glucose Lactic Acid Calcium 8.0 L AST ALT Alkaline Phosphatase CK-MB (CK-2) CK-MB (CK-2) Rel Index Total Protein Albumin TSH Urine WBC (Auto) Salicylates 01/13/17 01/13/17 01/13/17 06:15 11:50 17:31 WBC RBC Hgb Hct MCV MCH RDW Plt Count Lymph % (Auto) Hill % (Auto) Eos % (Auto) Seg Neutrophils % Seg Neuts % (Manual) Lymphocytes % (Manual) Seg Neutrophils # Seg Neutrophils # Man Lymphocytes # (Manual) APTT POC ABG pH ABG pH POC ABG pCO2 POC ABG pO2 ABG pO2 ABG HCO3 ABG Base Excess ABG Hemoglobin VBG pH Oxyhemoglobin Sodium Potassium Chloride Carbon Dioxide BUN Creatinine Glucose POC Glucose 116 H 171 H 203 H Lactic Acid Calcium AST ALT Alkaline Phosphatase CK-MB (CK-2) CK-MB (CK-2) Rel Index Total Protein Albumin TSH Urine WBC (Auto) Salicylates 01/14/17 01/14/17 01/14/17 00:02 04:50 04:50 WBC RBC 3.32 L Hgb 8.5 L Hct 26.1 L MCV 79 L MCH 26 L RDW 18.2 H Plt Count Lymph % (Auto) Hill % (Auto) 9.0 H Eos % (Auto) Seg Neutrophils % Seg Neuts % (Manual) Lymphocytes % (Manual) Seg Neutrophils # Seg Neutrophils # Man Lymphocytes # (Manual) APTT POC ABG pH ABG pH POC ABG pCO2 POC ABG pO2 ABG pO2 ABG HCO3 ABG Base Excess ABG Hemoglobin VBG pH Oxyhemoglobin Sodium Potassium Chloride 112.5 H Carbon Dioxide BUN Creatinine Glucose 149 H POC Glucose 157 H Lactic Acid Calcium 8.1 L AST ALT Alkaline Phosphatase CK-MB (CK-2) CK-MB (CK-2) Rel Index Total Protein Albumin TSH Urine WBC (Auto) Salicylates 01/14/17 01/14/17 01/14/17 05:10 11:27 14:07 WBC RBC Hgb Hct MCV MCH RDW Plt Count Lymph % (Auto) Hill % (Auto) Eos % (Auto) Seg Neutrophils % Seg Neuts % (Manual) Lymphocytes % (Manual) Seg Neutrophils # Seg Neutrophils # Man Lymphocytes # (Manual) APTT POC ABG pH ABG pH POC ABG pCO2 POC ABG pO2 ABG pO2 ABG HCO3 ABG Base Excess ABG Hemoglobin VBG pH Oxyhemoglobin Sodium Potassium Chloride Carbon Dioxide BUN Creatinine Glucose POC Glucose 176 H 147 H Lactic Acid Calcium AST ALT Alkaline Phosphatase CK-MB (CK-2) CK-MB (CK-2) Rel Index Total Protein Albumin TSH Urine WBC (Auto) 53.0 H Salicylates 01/14/17 01/15/17 01/15/17 16:52 00:04 05:26 WBC RBC Hgb Hct MCV MCH RDW Plt Count Lymph % (Auto) Hill % (Auto) Eos % (Auto) Seg Neutrophils % Seg Neuts % (Manual) Lymphocytes % (Manual) Seg Neutrophils # Seg Neutrophils # Man Lymphocytes # (Manual) APTT POC ABG pH ABG pH POC ABG pCO2 POC ABG pO2 ABG pO2 ABG HCO3 ABG Base Excess ABG Hemoglobin VBG pH Oxyhemoglobin Sodium Potassium Chloride Carbon Dioxide BUN Creatinine Glucose POC Glucose 131 H 193 H 215 H Lactic Acid Calcium AST ALT Alkaline Phosphatase CK-MB (CK-2) CK-MB (CK-2) Rel Index Total Protein Albumin TSH Urine WBC (Auto) Salicylates 01/15/17 01/15/17 01/15/17 11:49 17:47 21:33 WBC RBC Hgb Hct MCV MCH RDW Plt Count Lymph % (Auto) Hill % (Auto) Eos % (Auto) Seg Neutrophils % Seg Neuts % (Manual) Lymphocytes % (Manual) Seg Neutrophils # Seg Neutrophils # Man Lymphocytes # (Manual) APTT POC ABG pH ABG pH POC ABG pCO2 POC ABG pO2 ABG pO2 ABG HCO3 ABG Base Excess ABG Hemoglobin VBG pH Oxyhemoglobin Sodium Potassium Chloride Carbon Dioxide BUN Creatinine Glucose POC Glucose 121 H 211 H 275 H Lactic Acid Calcium AST ALT Alkaline Phosphatase CK-MB (CK-2) CK-MB (CK-2) Rel Index Total Protein Albumin TSH Urine WBC (Auto) Salicylates 01/16/17 01/16/17 01/16/17 04:30 05:28 13:45 WBC RBC Hgb Hct MCV MCH RDW Plt Count Lymph % (Auto) Hill % (Auto) Eos % (Auto) Seg Neutrophils % Seg Neuts % (Manual) Lymphocytes % (Manual) Seg Neutrophils # Seg Neutrophils # Man Lymphocytes # (Manual) APTT POC ABG pH ABG pH 7.457 H POC ABG pCO2 POC ABG pO2 ABG pO2 55.1 L ABG HCO3 19.4 L ABG Base Excess -4.0 L ABG Hemoglobin 6.8 L VBG pH Oxyhemoglobin 94.9 L Sodium Potassium Chloride Carbon Dioxide BUN Creatinine Glucose POC Glucose 271 H 236 H Lactic Acid Calcium AST ALT Alkaline Phosphatase CK-MB (CK-2) CK-MB (CK-2) Rel Index Total Protein Albumin TSH Urine WBC (Auto) Salicylates 01/16/17 01/17/17 01/17/17 21:39 04:10 04:10 WBC 4.4 L RBC 2.98 L Hgb 7.7 L Hct 23.3 L MCV 78 L MCH 26 L RDW 18.1 H Plt Count Lymph % (Auto) Hill % (Auto) Eos % (Auto) Seg Neutrophils % Seg Neuts % (Manual) Lymphocytes % (Manual) Seg Neutrophils # Seg Neutrophils # Man Lymphocytes # (Manual) APTT POC ABG pH ABG pH POC ABG pCO2 POC ABG pO2 ABG pO2 ABG HCO3 ABG Base Excess ABG Hemoglobin VBG pH Oxyhemoglobin Sodium Potassium 3.3 L Chloride 108.7 H Carbon Dioxide 20 L BUN 8 L Creatinine Glucose 202 H POC Glucose 258 H Lactic Acid Calcium 7.6 L AST ALT Alkaline Phosphatase CK-MB (CK-2) CK-MB (CK-2) Rel Index Total Protein Albumin TSH Urine WBC (Auto) Salicylates 01/17/17 01/17/17 01/17/17 04:35 12:23 16:01 WBC RBC Hgb Hct MCV MCH RDW Plt Count Lymph % (Auto) Hill % (Auto) Eos % (Auto) Seg Neutrophils % Seg Neuts % (Manual) Lymphocytes % (Manual) Seg Neutrophils # Seg Neutrophils # Man Lymphocytes # (Manual) APTT POC ABG pH ABG pH POC ABG pCO2 POC ABG pO2 ABG pO2 160.3 H ABG HCO3 ABG Base Excess -2.3 L ABG Hemoglobin 7.9 L VBG pH Oxyhemoglobin Sodium Potassium Chloride Carbon Dioxide BUN Creatinine Glucose POC Glucose 321 H 239 H Lactic Acid Calcium AST ALT Alkaline Phosphatase CK-MB (CK-2) CK-MB (CK-2) Rel Index Total Protein Albumin TSH Urine WBC (Auto) Salicylates 01/18/17 01/18/17 01/18/17 05:07 12:09 17:54 WBC RBC Hgb Hct MCV MCH RDW Plt Count Lymph % (Auto) Hill % (Auto) Eos % (Auto) Seg Neutrophils % Seg Neuts % (Manual) Lymphocytes % (Manual) Seg Neutrophils # Seg Neutrophils # Man Lymphocytes # (Manual) APTT POC ABG pH ABG pH POC ABG pCO2 POC ABG pO2 ABG pO2 ABG HCO3 ABG Base Excess ABG Hemoglobin VBG pH Oxyhemoglobin Sodium Potassium Chloride Carbon Dioxide BUN Creatinine Glucose POC Glucose 155 H 203 H 132 H Lactic Acid Calcium AST ALT Alkaline Phosphatase CK-MB (CK-2) CK-MB (CK-2) Rel Index Total Protein Albumin TSH Urine WBC (Auto) Salicylates 01/18/17 01/19/17 01/19/17 23:43 04:28 12:11 WBC RBC Hgb Hct MCV MCH RDW Plt Count Lymph % (Auto) Hill % (Auto) Eos % (Auto) Seg Neutrophils % Seg Neuts % (Manual) Lymphocytes % (Manual) Seg Neutrophils # Seg Neutrophils # Man Lymphocytes # (Manual) APTT POC ABG pH ABG pH POC ABG pCO2 POC ABG pO2 ABG pO2 ABG HCO3 ABG Base Excess ABG Hemoglobin VBG pH Oxyhemoglobin Sodium Potassium Chloride Carbon Dioxide BUN Creatinine Glucose POC Glucose 125 H 182 H 153 H Lactic Acid Calcium AST ALT Alkaline Phosphatase CK-MB (CK-2) CK-MB (CK-2) Rel Index Total Protein Albumin TSH Urine WBC (Auto) Salicylates 01/19/17 01/20/17 01/20/17 17:23 00:12 05:44 WBC RBC Hgb Hct MCV MCH RDW Plt Count Lymph % (Auto) Hill % (Auto) Eos % (Auto) Seg Neutrophils % Seg Neuts % (Manual) Lymphocytes % (Manual) Seg Neutrophils # Seg Neutrophils # Man Lymphocytes # (Manual) APTT POC ABG pH ABG pH POC ABG pCO2 POC ABG pO2 ABG pO2 ABG HCO3 ABG Base Excess ABG Hemoglobin VBG pH Oxyhemoglobin Sodium Potassium Chloride Carbon Dioxide BUN Creatinine Glucose POC Glucose 66 L 139 H 176 H Lactic Acid Calcium AST ALT Alkaline Phosphatase CK-MB (CK-2) CK-MB (CK-2) Rel Index Total Protein Albumin TSH Urine WBC (Auto) Salicylates 01/20/17 01/20/17 01/20/17 11:48 17:42 23:43 WBC RBC Hgb Hct MCV MCH RDW Plt Count Lymph % (Auto) Hill % (Auto) Eos % (Auto) Seg Neutrophils % Seg Neuts % (Manual) Lymphocytes % (Manual) Seg Neutrophils # Seg Neutrophils # Man Lymphocytes # (Manual) APTT POC ABG pH ABG pH POC ABG pCO2 POC ABG pO2 ABG pO2 ABG HCO3 ABG Base Excess ABG Hemoglobin VBG pH Oxyhemoglobin Sodium Potassium Chloride Carbon Dioxide BUN Creatinine Glucose POC Glucose 218 H 132 H 178 H Lactic Acid Calcium AST ALT Alkaline Phosphatase CK-MB (CK-2) CK-MB (CK-2) Rel Index Total Protein Albumin TSH Urine WBC (Auto) Salicylates 01/21/17 01/21/17 01/21/17 05:34 11:17 23:37 WBC RBC Hgb Hct MCV MCH RDW Plt Count Lymph % (Auto) Hill % (Auto) Eos % (Auto) Seg Neutrophils % Seg Neuts % (Manual) Lymphocytes % (Manual) Seg Neutrophils # Seg Neutrophils # Man Lymphocytes # (Manual) APTT POC ABG pH ABG pH POC ABG pCO2 POC ABG pO2 ABG pO2 ABG HCO3 ABG Base Excess ABG Hemoglobin VBG pH Oxyhemoglobin Sodium Potassium Chloride Carbon Dioxide BUN Creatinine Glucose POC Glucose 106 H 213 H 140 H Lactic Acid Calcium AST ALT Alkaline Phosphatase CK-MB (CK-2) CK-MB (CK-2) Rel Index Total Protein Albumin TSH Urine WBC (Auto) Salicylates 01/22/17 01/22/17 01/22/17 04:00 04:00 04:58 WBC RBC 3.26 L Hgb 8.3 L Hct 25.5 L MCV 78 L MCH 25 L RDW 17.9 H Plt Count Lymph % (Auto) Hill % (Auto) 7.9 H Eos % (Auto) 6.2 H Seg Neutrophils % Seg Neuts % (Manual) Lymphocytes % (Manual) Seg Neutrophils # Seg Neutrophils # Man Lymphocytes # (Manual) APTT POC ABG pH ABG pH POC ABG pCO2 POC ABG pO2 ABG pO2 ABG HCO3 ABG Base Excess ABG Hemoglobin VBG pH Oxyhemoglobin Sodium Potassium Chloride 95.5 L Carbon Dioxide 31 H D BUN Creatinine Glucose 134 H POC Glucose 146 H Lactic Acid Calcium AST 44 H ALT Alkaline Phosphatase 379 H CK-MB (CK-2) CK-MB (CK-2) Rel Index Total Protein Albumin 2.7 L TSH Urine WBC (Auto) Salicylates 01/22/17 01/22/17 01/22/17 12:12 18:12 23:39 WBC RBC Hgb Hct MCV MCH RDW Plt Count Lymph % (Auto) Hill % (Auto) Eos % (Auto) Seg Neutrophils % Seg Neuts % (Manual) Lymphocytes % (Manual) Seg Neutrophils # Seg Neutrophils # Man Lymphocytes # (Manual) APTT POC ABG pH ABG pH POC ABG pCO2 POC ABG pO2 ABG pO2 ABG HCO3 ABG Base Excess ABG Hemoglobin VBG pH Oxyhemoglobin Sodium Potassium Chloride Carbon Dioxide BUN Creatinine Glucose POC Glucose 255 H 182 H 134 H Lactic Acid Calcium AST ALT Alkaline Phosphatase CK-MB (CK-2) CK-MB (CK-2) Rel Index Total Protein Albumin TSH Urine WBC (Auto) Salicylates 01/23/17 01/23/17 01/23/17 04:43 12:12 17:36 WBC RBC Hgb Hct MCV MCH RDW Plt Count Lymph % (Auto) Hill % (Auto) Eos % (Auto) Seg Neutrophils % Seg Neuts % (Manual) Lymphocytes % (Manual) Seg Neutrophils # Seg Neutrophils # Man Lymphocytes # (Manual) APTT POC ABG pH ABG pH POC ABG pCO2 POC ABG pO2 ABG pO2 ABG HCO3 ABG Base Excess ABG Hemoglobin VBG pH Oxyhemoglobin Sodium Potassium Chloride Carbon Dioxide BUN Creatinine Glucose POC Glucose 218 H 128 H 156 H Lactic Acid Calcium AST ALT Alkaline Phosphatase CK-MB (CK-2) CK-MB (CK-2) Rel Index Total Protein Albumin TSH Urine WBC (Auto) Salicylates 01/24/17 01/24/17 01/24/17 00:08 05:16 11:40 WBC RBC Hgb Hct MCV MCH RDW Plt Count Lymph % (Auto) Hill % (Auto) Eos % (Auto) Seg Neutrophils % Seg Neuts % (Manual) Lymphocytes % (Manual) Seg Neutrophils # Seg Neutrophils # Man Lymphocytes # (Manual) APTT POC ABG pH ABG pH POC ABG pCO2 POC ABG pO2 ABG pO2 ABG HCO3 ABG Base Excess ABG Hemoglobin VBG pH Oxyhemoglobin Sodium Potassium Chloride Carbon Dioxide BUN Creatinine Glucose POC Glucose 129 H 169 H 187 H Lactic Acid Calcium AST ALT Alkaline Phosphatase CK-MB (CK-2) CK-MB (CK-2) Rel Index Total Protein Albumin TSH Urine WBC (Auto) Salicylates 01/24/17 01/24/17 01/25/17 17:43 23:23 04:56 WBC RBC Hgb Hct MCV MCH RDW Plt Count Lymph % (Auto) Hill % (Auto) Eos % (Auto) Seg Neutrophils % Seg Neuts % (Manual) Lymphocytes % (Manual) Seg Neutrophils # Seg Neutrophils # Man Lymphocytes # (Manual) APTT POC ABG pH ABG pH POC ABG pCO2 POC ABG pO2 ABG pO2 ABG HCO3 ABG Base Excess ABG Hemoglobin VBG pH Oxyhemoglobin Sodium Potassium Chloride Carbon Dioxide BUN Creatinine Glucose POC Glucose 215 H 222 H 210 H Lactic Acid Calcium AST ALT Alkaline Phosphatase CK-MB (CK-2) CK-MB (CK-2) Rel Index Total Protein Albumin TSH Urine WBC (Auto) Salicylates 01/25/17 01/25/17 01/26/17 11:52 17:37 00:02 WBC RBC Hgb Hct MCV MCH RDW Plt Count Lymph % (Auto) Hill % (Auto) Eos % (Auto) Seg Neutrophils % Seg Neuts % (Manual) Lymphocytes % (Manual) Seg Neutrophils # Seg Neutrophils # Man Lymphocytes # (Manual) APTT POC ABG pH ABG pH POC ABG pCO2 POC ABG pO2 ABG pO2 ABG HCO3 ABG Base Excess ABG Hemoglobin VBG pH Oxyhemoglobin Sodium Potassium Chloride Carbon Dioxide BUN Creatinine Glucose POC Glucose 284 H 218 H 192 H Lactic Acid Calcium AST ALT Alkaline Phosphatase CK-MB (CK-2) CK-MB (CK-2) Rel Index Total Protein Albumin TSH Urine WBC (Auto) Salicylates 01/26/17 01/26/17 01/26/17 05:33 12:17 17:50 WBC RBC Hgb Hct MCV MCH RDW Plt Count Lymph % (Auto) Hill % (Auto) Eos % (Auto) Seg Neutrophils % Seg Neuts % (Manual) Lymphocytes % (Manual) Seg Neutrophils # Seg Neutrophils # Man Lymphocytes # (Manual) APTT POC ABG pH ABG pH POC ABG pCO2 POC ABG pO2 ABG pO2 ABG HCO3 ABG Base Excess ABG Hemoglobin VBG pH Oxyhemoglobin Sodium Potassium Chloride Carbon Dioxide BUN Creatinine Glucose POC Glucose 199 H 227 H 229 H Lactic Acid Calcium AST ALT Alkaline Phosphatase CK-MB (CK-2) CK-MB (CK-2) Rel Index Total Protein Albumin TSH Urine WBC (Auto) Salicylates 01/26/17 01/27/17 01/27/17 23:57 05:31 11:42 WBC RBC Hgb Hct MCV MCH RDW Plt Count Lymph % (Auto) Hill % (Auto) Eos % (Auto) Seg Neutrophils % Seg Neuts % (Manual) Lymphocytes % (Manual) Seg Neutrophils # Seg Neutrophils # Man Lymphocytes # (Manual) APTT POC ABG pH ABG pH POC ABG pCO2 POC ABG pO2 ABG pO2 ABG HCO3 ABG Base Excess ABG Hemoglobin VBG pH Oxyhemoglobin Sodium Potassium Chloride Carbon Dioxide BUN Creatinine Glucose POC Glucose 186 H 285 H 260 H Lactic Acid Calcium AST ALT Alkaline Phosphatase CK-MB (CK-2) CK-MB (CK-2) Rel Index Total Protein Albumin TSH Urine WBC (Auto) Salicylates 01/27/17 01/27/17 01/27/17 17:47 23:58 Unknown WBC 12.1 H RBC 3.28 L Hgb 8.5 L Hct 25.5 L MCV 78 L MCH 26 L RDW 16.8 H Plt Count 601 H Lymph % (Auto) Hill % (Auto) Eos % (Auto) Seg Neutrophils % Seg Neuts % (Manual) Lymphocytes % (Manual) Seg Neutrophils # Seg Neutrophils # Man Lymphocytes # (Manual) APTT POC ABG pH ABG pH POC ABG pCO2 POC ABG pO2 ABG pO2 ABG HCO3 ABG Base Excess ABG Hemoglobin VBG pH Oxyhemoglobin Sodium Potassium Chloride Carbon Dioxide BUN Creatinine Glucose POC Glucose 329 H 225 H Lactic Acid Calcium AST ALT Alkaline Phosphatase CK-MB (CK-2) CK-MB (CK-2) Rel Index Total Protein Albumin TSH Urine WBC (Auto) Salicylates 01/27/17 01/28/17 01/28/17 Unknown 03:44 03:44 WBC RBC 3.14 L Hgb 8.2 L Hct 24.1 L MCV 77 L MCH 26 L RDW 16.9 H Plt Count 567 H Lymph % (Auto) Hill % (Auto) Eos % (Auto) Seg Neutrophils % Seg Neuts % (Manual) Lymphocytes % (Manual) Seg Neutrophils # Seg Neutrophils # Man Lymphocytes # (Manual) APTT POC ABG pH ABG pH POC ABG pCO2 POC ABG pO2 ABG pO2 ABG HCO3 ABG Base Excess ABG Hemoglobin VBG pH Oxyhemoglobin Sodium 128 L Potassium 5.4 H Chloride 87.5 L Carbon Dioxide BUN 44 H 42 H Creatinine Glucose 250 H 128 H POC Glucose Lactic Acid Calcium AST ALT Alkaline Phosphatase CK-MB (CK-2) CK-MB (CK-2) Rel Index Total Protein Albumin TSH Urine WBC (Auto) Salicylates 01/28/17 01/28/17 01/28/17 11:43 16:47 17:52 WBC RBC Hgb Hct MCV MCH RDW Plt Count Lymph % (Auto) Hill % (Auto) Eos % (Auto) Seg Neutrophils % Seg Neuts % (Manual) Lymphocytes % (Manual) Seg Neutrophils # Seg Neutrophils # Man Lymphocytes # (Manual) APTT POC ABG pH ABG pH POC ABG pCO2 POC ABG pO2 ABG pO2 ABG HCO3 ABG Base Excess ABG Hemoglobin VBG pH Oxyhemoglobin Sodium Potassium Chloride Carbon Dioxide BUN Creatinine Glucose POC Glucose 351 H 249 H Lactic Acid Calcium AST ALT Alkaline Phosphatase CK-MB (CK-2) CK-MB (CK-2) Rel Index Total Protein Albumin TSH Urine WBC (Auto) > 182.0 H Salicylates 01/29/17 01/29/17 01/29/17 05:25 05:25 09:32 WBC 13.6 H RBC 3.25 L Hgb 8.3 L Hct 25.1 L MCV 77 L MCH 26 L RDW 16.8 H Plt Count 514 H Lymph % (Auto) Hill % (Auto) Eos % (Auto) Seg Neutrophils % Seg Neuts % (Manual) Lymphocytes % (Manual) Seg Neutrophils # Seg Neutrophils # Man Lymphocytes # (Manual) APTT POC ABG pH ABG pH POC ABG pCO2 POC ABG pO2 ABG pO2 ABG HCO3 ABG Base Excess ABG Hemoglobin VBG pH Oxyhemoglobin Sodium Potassium Chloride 97.8 L Carbon Dioxide BUN 34 H Creatinine Glucose 222 H POC Glucose Lactic Acid 2.50 H* Calcium AST ALT Alkaline Phosphatase CK-MB (CK-2) CK-MB (CK-2) Rel Index Total Protein Albumin TSH Urine WBC (Auto) Salicylates 01/29/17 01/29/17 01/29/17 11:56 18:11 23:55 WBC RBC Hgb Hct MCV MCH RDW Plt Count Lymph % (Auto) Hill % (Auto) Eos % (Auto) Seg Neutrophils % Seg Neuts % (Manual) Lymphocytes % (Manual) Seg Neutrophils # Seg Neutrophils # Man Lymphocytes # (Manual) APTT POC ABG pH ABG pH POC ABG pCO2 POC ABG pO2 ABG pO2 ABG HCO3 ABG Base Excess ABG Hemoglobin VBG pH Oxyhemoglobin Sodium Potassium Chloride Carbon Dioxide BUN Creatinine Glucose POC Glucose 261 H 215 H 176 H Lactic Acid Calcium AST ALT Alkaline Phosphatase CK-MB (CK-2) CK-MB (CK-2) Rel Index Total Protein Albumin TSH Urine WBC (Auto) Salicylates 01/30/17 01/30/17 01/30/17 05:31 05:31 05:34 WBC 15.2 H RBC 3.09 L Hgb 7.9 L Hct 23.9 L MCV 77 L MCH 26 L RDW 16.9 H Plt Count 569 H Lymph % (Auto) Hill % (Auto) Eos % (Auto) Seg Neutrophils % Seg Neuts % (Manual) Lymphocytes % (Manual) Seg Neutrophils # Seg Neutrophils # Man Lymphocytes # (Manual) APTT POC ABG pH ABG pH POC ABG pCO2 POC ABG pO2 ABG pO2 ABG HCO3 ABG Base Excess ABG Hemoglobin VBG pH Oxyhemoglobin Sodium Potassium Chloride Carbon Dioxide BUN 24 H Creatinine Glucose 235 H POC Glucose 243 H Lactic Acid Calcium AST ALT Alkaline Phosphatase CK-MB (CK-2) CK-MB (CK-2) Rel Index Total Protein Albumin TSH Urine WBC (Auto) Salicylates 01/30/17 01/30/17 01/30/17 11:38 17:58 23:29 WBC RBC Hgb Hct MCV MCH RDW Plt Count Lymph % (Auto) Hill % (Auto) Eos % (Auto) Seg Neutrophils % Seg Neuts % (Manual) Lymphocytes % (Manual) Seg Neutrophils # Seg Neutrophils # Man Lymphocytes # (Manual) APTT POC ABG pH ABG pH POC ABG pCO2 POC ABG pO2 ABG pO2 ABG HCO3 ABG Base Excess ABG Hemoglobin VBG pH Oxyhemoglobin Sodium Potassium Chloride Carbon Dioxide BUN Creatinine Glucose POC Glucose 298 H 208 H 245 H Lactic Acid Calcium AST ALT Alkaline Phosphatase CK-MB (CK-2) CK-MB (CK-2) Rel Index Total Protein Albumin TSH Urine WBC (Auto) Salicylates 01/31/17 01/31/17 01/31/17 04:39 04:39 05:57 WBC 11.4 H RBC 3.22 L Hgb 8.2 L Hct 24.9 L MCV 78 L MCH 25 L RDW 17.2 H Plt Count 576 H Lymph % (Auto) Hill % (Auto) Eos % (Auto) Seg Neutrophils % Seg Neuts % (Manual) Lymphocytes % (Manual) Seg Neutrophils # Seg Neutrophils # Man Lymphocytes # (Manual) APTT POC ABG pH ABG pH POC ABG pCO2 POC ABG pO2 ABG pO2 ABG HCO3 ABG Base Excess ABG Hemoglobin VBG pH Oxyhemoglobin Sodium Potassium Chloride Carbon Dioxide BUN Creatinine 0.7 L Glucose 223 H POC Glucose 264 H Lactic Acid Calcium AST ALT Alkaline Phosphatase CK-MB (CK-2) CK-MB (CK-2) Rel Index Total Protein Albumin TSH Urine WBC (Auto) Salicylates 01/31/17 01/31/17 01/31/17 12:23 17:41 18:55 WBC RBC Hgb Hct MCV MCH RDW Plt Count Lymph % (Auto) Hill % (Auto) Eos % (Auto) Seg Neutrophils % Seg Neuts % (Manual) Lymphocytes % (Manual) Seg Neutrophils # Seg Neutrophils # Man Lymphocytes # (Manual) APTT POC ABG pH ABG pH POC ABG pCO2 32.8 L POC ABG pO2 ABG pO2 ABG HCO3 ABG Base Excess ABG Hemoglobin VBG pH Oxyhemoglobin Sodium Potassium Chloride Carbon Dioxide BUN Creatinine Glucose POC Glucose 252 H 208 H Lactic Acid Calcium AST ALT Alkaline Phosphatase CK-MB (CK-2) CK-MB (CK-2) Rel Index Total Protein Albumin TSH Urine WBC (Auto) Salicylates 01/31/17 02/01/17 02/01/17 22:59 03:38 03:38 WBC RBC 2.81 L Hgb 7.4 L Hct 22.1 L MCV 79 L MCH 27 L RDW 17.0 H Plt Count 540 H Lymph % (Auto) Hill % (Auto) Eos % (Auto) Seg Neutrophils % Seg Neuts % (Manual) Lymphocytes % (Manual) Seg Neutrophils # Seg Neutrophils # Man Lymphocytes # (Manual) APTT POC ABG pH ABG pH POC ABG pCO2 POC ABG pO2 ABG pO2 ABG HCO3 ABG Base Excess ABG Hemoglobin VBG pH Oxyhemoglobin Sodium Potassium Chloride Carbon Dioxide 21 L BUN Creatinine 0.7 L Glucose POC Glucose 40 L Lactic Acid Calcium AST ALT Alkaline Phosphatase CK-MB (CK-2) CK-MB (CK-2) Rel Index Total Protein Albumin TSH Urine WBC (Auto) Salicylates 02/01/17 02/01/17 02/01/17 05:17 12:19 16:44 WBC RBC Hgb Hct MCV MCH RDW Plt Count Lymph % (Auto) Hill % (Auto) Eos % (Auto) Seg Neutrophils % Seg Neuts % (Manual) Lymphocytes % (Manual) Seg Neutrophils # Seg Neutrophils # Man Lymphocytes # (Manual) APTT POC ABG pH ABG pH POC ABG pCO2 POC ABG pO2 ABG pO2 ABG HCO3 ABG Base Excess ABG Hemoglobin VBG pH Oxyhemoglobin Sodium Potassium Chloride Carbon Dioxide BUN Creatinine Glucose POC Glucose 140 H 213 H 172 H Lactic Acid Calcium AST ALT Alkaline Phosphatase CK-MB (CK-2) CK-MB (CK-2) Rel Index Total Protein Albumin TSH Urine WBC (Auto) Salicylates 02/01/17 02/02/17 02/02/17 23:59 05:14 11:24 WBC RBC Hgb Hct MCV MCH RDW Plt Count Lymph % (Auto) Hill % (Auto) Eos % (Auto) Seg Neutrophils % Seg Neuts % (Manual) Lymphocytes % (Manual) Seg Neutrophils # Seg Neutrophils # Man Lymphocytes # (Manual) APTT POC ABG pH ABG pH POC ABG pCO2 POC ABG pO2 ABG pO2 ABG HCO3 ABG Base Excess ABG Hemoglobin VBG pH Oxyhemoglobin Sodium Potassium Chloride Carbon Dioxide BUN Creatinine Glucose POC Glucose 181 H 194 H 209 H Lactic Acid Calcium AST ALT Alkaline Phosphatase CK-MB (CK-2) CK-MB (CK-2) Rel Index Total Protein Albumin TSH Urine WBC (Auto) Salicylates 02/02/17 02/02/17 02/02/17 11:46 11:46 17:47 WBC RBC 2.94 L Hgb 7.5 L Hct 23.0 L MCV 78 L MCH 25 L RDW 16.9 H Plt Count 520 H Lymph % (Auto) Hill % (Auto) Eos % (Auto) Seg Neutrophils % Seg Neuts % (Manual) Lymphocytes % (Manual) Seg Neutrophils # Seg Neutrophils # Man Lymphocytes # (Manual) APTT POC ABG pH ABG pH POC ABG pCO2 POC ABG pO2 ABG pO2 ABG HCO3 ABG Base Excess ABG Hemoglobin VBG pH Oxyhemoglobin Sodium Potassium Chloride Carbon Dioxide BUN Creatinine 0.6 L Glucose 189 H POC Glucose 147 H Lactic Acid Calcium 8.1 L AST ALT Alkaline Phosphatase CK-MB (CK-2) CK-MB (CK-2) Rel Index Total Protein Albumin TSH Urine WBC (Auto) Salicylates 02/02/17 02/03/17 02/03/17 23:32 05:53 11:19 WBC RBC Hgb Hct MCV MCH RDW Plt Count Lymph % (Auto) Hill % (Auto) Eos % (Auto) Seg Neutrophils % Seg Neuts % (Manual) Lymphocytes % (Manual) Seg Neutrophils # Seg Neutrophils # Man Lymphocytes # (Manual) APTT POC ABG pH ABG pH POC ABG pCO2 POC ABG pO2 ABG pO2 ABG HCO3 ABG Base Excess ABG Hemoglobin VBG pH Oxyhemoglobin Sodium Potassium Chloride Carbon Dioxide BUN Creatinine Glucose POC Glucose 176 H 224 H 228 H Lactic Acid Calcium AST ALT Alkaline Phosphatase CK-MB (CK-2) CK-MB (CK-2) Rel Index Total Protein Albumin TSH Urine WBC (Auto) Salicylates 02/03/17 02/03/17 02/04/17 16:59 23:38 05:45 WBC RBC Hgb Hct MCV MCH RDW Plt Count Lymph % (Auto) Hill % (Auto) Eos % (Auto) Seg Neutrophils % Seg Neuts % (Manual) Lymphocytes % (Manual) Seg Neutrophils # Seg Neutrophils # Man Lymphocytes # (Manual) APTT POC ABG pH ABG pH POC ABG pCO2 POC ABG pO2 ABG pO2 ABG HCO3 ABG Base Excess ABG Hemoglobin VBG pH Oxyhemoglobin Sodium Potassium Chloride Carbon Dioxide BUN Creatinine Glucose POC Glucose 189 H 191 H 251 H Lactic Acid Calcium AST ALT Alkaline Phosphatase CK-MB (CK-2) CK-MB (CK-2) Rel Index Total Protein Albumin TSH Urine WBC (Auto) Salicylates 02/04/17 02/04/17 02/05/17 11:20 17:20 00:17 WBC RBC Hgb Hct MCV MCH RDW Plt Count Lymph % (Auto) Hill % (Auto) Eos % (Auto) Seg Neutrophils % Seg Neuts % (Manual) Lymphocytes % (Manual) Seg Neutrophils # Seg Neutrophils # Man Lymphocytes # (Manual) APTT POC ABG pH ABG pH POC ABG pCO2 POC ABG pO2 ABG pO2 ABG HCO3 ABG Base Excess ABG Hemoglobin VBG pH Oxyhemoglobin Sodium Potassium Chloride Carbon Dioxide BUN Creatinine Glucose POC Glucose 243 H 163 H 200 H Lactic Acid Calcium AST ALT Alkaline Phosphatase CK-MB (CK-2) CK-MB (CK-2) Rel Index Total Protein Albumin TSH Urine WBC (Auto) Salicylates 02/05/17 02/05/17 02/05/17 05:38 12:38 16:29 WBC RBC Hgb Hct MCV MCH RDW Plt Count Lymph % (Auto) Hill % (Auto) Eos % (Auto) Seg Neutrophils % Seg Neuts % (Manual) Lymphocytes % (Manual) Seg Neutrophils # Seg Neutrophils # Man Lymphocytes # (Manual) APTT POC ABG pH ABG pH POC ABG pCO2 POC ABG pO2 ABG pO2 ABG HCO3 ABG Base Excess ABG Hemoglobin VBG pH Oxyhemoglobin Sodium Potassium Chloride Carbon Dioxide BUN Creatinine Glucose POC Glucose 248 H 241 H 257 H Lactic Acid Calcium AST ALT Alkaline Phosphatase CK-MB (CK-2) CK-MB (CK-2) Rel Index Total Protein Albumin TSH Urine WBC (Auto) Salicylates 02/05/17 02/06/17 02/06/17 23:56 05:30 11:50 WBC RBC Hgb Hct MCV MCH RDW Plt Count Lymph % (Auto) Hill % (Auto) Eos % (Auto) Seg Neutrophils % Seg Neuts % (Manual) Lymphocytes % (Manual) Seg Neutrophils # Seg Neutrophils # Man Lymphocytes # (Manual) APTT POC ABG pH ABG pH POC ABG pCO2 POC ABG pO2 ABG pO2 ABG HCO3 ABG Base Excess ABG Hemoglobin VBG pH Oxyhemoglobin Sodium Potassium Chloride Carbon Dioxide BUN Creatinine Glucose POC Glucose 258 H 120 H 254 H Lactic Acid Calcium AST ALT Alkaline Phosphatase CK-MB (CK-2) CK-MB (CK-2) Rel Index Total Protein Albumin TSH Urine WBC (Auto) Salicylates 02/06/17 02/06/17 02/07/17 17:11 23:50 05:22 WBC RBC Hgb Hct MCV MCH RDW Plt Count Lymph % (Auto) Hill % (Auto) Eos % (Auto) Seg Neutrophils % Seg Neuts % (Manual) Lymphocytes % (Manual) Seg Neutrophils # Seg Neutrophils # Man Lymphocytes # (Manual) APTT POC ABG pH ABG pH POC ABG pCO2 POC ABG pO2 ABG pO2 ABG HCO3 ABG Base Excess ABG Hemoglobin VBG pH Oxyhemoglobin Sodium Potassium Chloride Carbon Dioxide BUN Creatinine Glucose POC Glucose 149 H 240 H 258 H Lactic Acid Calcium AST ALT Alkaline Phosphatase CK-MB (CK-2) CK-MB (CK-2) Rel Index Total Protein Albumin TSH Urine WBC (Auto) Salicylates 02/07/17 02/07/17 02/07/17 11:15 18:33 23:59 WBC RBC Hgb Hct MCV MCH RDW Plt Count Lymph % (Auto) Hill % (Auto) Eos % (Auto) Seg Neutrophils % Seg Neuts % (Manual) Lymphocytes % (Manual) Seg Neutrophils # Seg Neutrophils # Man Lymphocytes # (Manual) APTT POC ABG pH ABG pH POC ABG pCO2 POC ABG pO2 ABG pO2 ABG HCO3 ABG Base Excess ABG Hemoglobin VBG pH Oxyhemoglobin Sodium Potassium Chloride Carbon Dioxide BUN Creatinine Glucose POC Glucose 239 H 176 H 186 H Lactic Acid Calcium AST ALT Alkaline Phosphatase CK-MB (CK-2) CK-MB (CK-2) Rel Index Total Protein Albumin TSH Urine WBC (Auto) Salicylates 02/08/17 02/08/17 02/08/17 06:15 11:55 16:55 WBC RBC Hgb Hct MCV MCH RDW Plt Count Lymph % (Auto) Hill % (Auto) Eos % (Auto) Seg Neutrophils % Seg Neuts % (Manual) Lymphocytes % (Manual) Seg Neutrophils # Seg Neutrophils # Man Lymphocytes # (Manual) APTT POC ABG pH ABG pH POC ABG pCO2 POC ABG pO2 ABG pO2 ABG HCO3 ABG Base Excess ABG Hemoglobin VBG pH Oxyhemoglobin Sodium Potassium Chloride Carbon Dioxide BUN Creatinine Glucose POC Glucose 195 H 129 H 246 H Lactic Acid Calcium AST ALT Alkaline Phosphatase CK-MB (CK-2) CK-MB (CK-2) Rel Index Total Protein Albumin TSH Urine WBC (Auto) Salicylates 02/08/17 02/09/17 02/09/17 23:51 05:51 07:24 WBC 14.7 H RBC 3.39 L Hgb 8.9 L Hct 26.4 L MCV 78 L MCH 26 L RDW 18.4 H Plt Count 670 H Lymph % (Auto) 11.8 L [place] % (Auto) Eos % (Auto) Seg Neutrophils % 81.2 H Seg Neuts % (Manual) Lymphocytes % (Manual) Seg Neutrophils # 11.9 H Seg Neutrophils # Man Lymphocytes # (Manual) APTT POC ABG pH ABG pH POC ABG pCO2 POC ABG pO2 ABG pO2 ABG HCO3 ABG Base Excess ABG Hemoglobin VBG pH Oxyhemoglobin Sodium Potassium Chloride Carbon Dioxide BUN Creatinine Glucose POC Glucose 262 H 295 H Lactic Acid Calcium AST ALT Alkaline Phosphatase CK-MB (CK-2) CK-MB (CK-2) Rel Index Total Protein Albumin TSH Urine WBC (Auto) Salicylates 02/09/17 02/09/17 02/09/17 07:24 12:08 18:39 WBC RBC Hgb Hct MCV MCH RDW Plt Count Lymph % (Auto) Hill % (Auto) Eos % (Auto) Seg Neutrophils % Seg Neuts % (Manual) Lymphocytes % (Manual) Seg Neutrophils # Seg Neutrophils # Man Lymphocytes # (Manual) APTT POC ABG pH ABG pH POC ABG pCO2 POC ABG pO2 ABG pO2 ABG HCO3 ABG Base Excess ABG Hemoglobin VBG pH Oxyhemoglobin Sodium Potassium Chloride 95.5 L Carbon Dioxide BUN 52 H Creatinine Glucose 277 H POC Glucose 236 H 151 H Lactic Acid Calcium AST ALT Alkaline Phosphatase CK-MB (CK-2) CK-MB (CK-2) Rel Index Total Protein Albumin TSH Urine WBC (Auto) Salicylates 02/10/17 02/10/17 02/10/17 00:01 05:44 11:21 WBC RBC Hgb Hct MCV MCH RDW Plt Count Lymph % (Auto) Hill % (Auto) Eos % (Auto) Seg Neutrophils % Seg Neuts % (Manual) Lymphocytes % (Manual) Seg Neutrophils # Seg Neutrophils # Man Lymphocytes # (Manual) APTT POC ABG pH ABG pH POC ABG pCO2 POC ABG pO2 ABG pO2 ABG HCO3 ABG Base Excess ABG Hemoglobin VBG pH Oxyhemoglobin Sodium Potassium Chloride Carbon Dioxide BUN Creatinine Glucose POC Glucose 210 H 201 H 233 H Lactic Acid Calcium AST ALT Alkaline Phosphatase CK-MB (CK-2) CK-MB (CK-2) Rel Index Total Protein Albumin TSH Urine WBC (Auto) Salicylates 02/10/17 02/10/17 02/11/17 17:29 23:56 05:24 WBC RBC Hgb Hct MCV MCH RDW Plt Count Lymph % (Auto) Hill % (Auto) Eos % (Auto) Seg Neutrophils % Seg Neuts % (Manual) Lymphocytes % (Manual) Seg Neutrophils # Seg Neutrophils # Man Lymphocytes # (Manual) APTT POC ABG pH ABG pH POC ABG pCO2 POC ABG pO2 ABG pO2 ABG HCO3 ABG Base Excess ABG Hemoglobin VBG pH Oxyhemoglobin Sodium Potassium Chloride Carbon Dioxide BUN Creatinine Glucose POC Glucose 167 H 191 H 135 H Lactic Acid Calcium AST ALT Alkaline Phosphatase CK-MB (CK-2) CK-MB (CK-2) Rel Index Total Protein Albumin TSH Urine WBC (Auto) Salicylates 02/11/17 02/11/17 02/11/17 12:25 17:03 23:59 WBC RBC Hgb Hct MCV MCH RDW Plt Count Lymph % (Auto) Hill % (Auto) Eos % (Auto) Seg Neutrophils % Seg Neuts % (Manual) Lymphocytes % (Manual) Seg Neutrophils # Seg Neutrophils # Man Lymphocytes # (Manual) APTT POC ABG pH ABG pH POC ABG pCO2 POC ABG pO2 ABG pO2 ABG HCO3 ABG Base Excess ABG Hemoglobin VBG pH Oxyhemoglobin Sodium Potassium Chloride Carbon Dioxide BUN Creatinine Glucose POC Glucose 275 H 172 H 215 H Lactic Acid Calcium AST ALT Alkaline Phosphatase CK-MB (CK-2) CK-MB (CK-2) Rel Index Total Protein Albumin TSH Urine WBC (Auto) Salicylates 02/12/17 02/12/17 02/12/17 05:39 11:33 17:55 WBC RBC Hgb Hct MCV MCH RDW Plt Count Lymph % (Auto) Hill % (Auto) Eos % (Auto) Seg Neutrophils % Seg Neuts % (Manual) Lymphocytes % (Manual) Seg Neutrophils # Seg Neutrophils # Man Lymphocytes # (Manual) APTT POC ABG pH ABG pH POC ABG pCO2 POC ABG pO2 ABG pO2 ABG HCO3 ABG Base Excess ABG Hemoglobin VBG pH Oxyhemoglobin Sodium Potassium Chloride Carbon Dioxide BUN Creatinine Glucose POC Glucose 261 H 217 H 172 H Lactic Acid Calcium AST ALT Alkaline Phosphatase CK-MB (CK-2) CK-MB (CK-2) Rel Index Total Protein Albumin TSH Urine WBC (Auto) Salicylates 02/13/17 02/13/17 02/13/17 00:25 06:46 11:26 WBC RBC Hgb Hct MCV MCH RDW Plt Count Lymph % (Auto) Hill % (Auto) Eos % (Auto) Seg Neutrophils % Seg Neuts % (Manual) Lymphocytes % (Manual) Seg Neutrophils # Seg Neutrophils # Man Lymphocytes # (Manual) APTT POC ABG pH ABG pH POC ABG pCO2 POC ABG pO2 ABG pO2 ABG HCO3 ABG Base Excess ABG Hemoglobin VBG pH Oxyhemoglobin Sodium Potassium Chloride Carbon Dioxide BUN Creatinine Glucose POC Glucose 207 H 219 H 231 H Lactic Acid Calcium AST ALT Alkaline Phosphatase CK-MB (CK-2) CK-MB (CK-2) Rel Index Total Protein Albumin TSH Urine WBC (Auto) Salicylates 02/13/17 02/13/17 02/14/17 17:12 23:44 05:44 WBC RBC Hgb Hct MCV MCH RDW Plt Count Lymph % (Auto) Hill % (Auto) Eos % (Auto) Seg Neutrophils % Seg Neuts % (Manual) Lymphocytes % (Manual) Seg Neutrophils # Seg Neutrophils # Man Lymphocytes # (Manual) APTT POC ABG pH ABG pH POC ABG pCO2 POC ABG pO2 ABG pO2 ABG HCO3 ABG Base Excess ABG Hemoglobin VBG pH Oxyhemoglobin Sodium Potassium Chloride Carbon Dioxide BUN Creatinine Glucose POC Glucose 190 H 256 H 184 H Lactic Acid Calcium AST ALT Alkaline Phosphatase CK-MB (CK-2) CK-MB (CK-2) Rel Index Total Protein Albumin TSH Urine WBC (Auto) Salicylates 02/14/17 02/14/17 02/14/17 12:21 17:57 23:18 WBC RBC Hgb Hct MCV MCH RDW Plt Count Lymph % (Auto) Hill % (Auto) Eos % (Auto) Seg Neutrophils % Seg Neuts % (Manual) Lymphocytes % (Manual) Seg Neutrophils # Seg Neutrophils # Man Lymphocytes # (Manual) APTT POC ABG pH ABG pH POC ABG pCO2 POC ABG pO2 ABG pO2 ABG HCO3 ABG Base Excess ABG Hemoglobin VBG pH Oxyhemoglobin Sodium Potassium Chloride Carbon Dioxide BUN Creatinine Glucose POC Glucose 233 H 155 H 165 H Lactic Acid Calcium AST ALT Alkaline Phosphatase CK-MB (CK-2) CK-MB (CK-2) Rel Index Total Protein Albumin TSH Urine WBC (Auto) Salicylates 02/15/17 02/15/17 02/15/17 05:33 11:45 17:20 WBC RBC Hgb Hct MCV MCH RDW Plt Count Lymph % (Auto) Hill % (Auto) Eos % (Auto) Seg Neutrophils % Seg Neuts % (Manual) Lymphocytes % (Manual) Seg Neutrophils # Seg Neutrophils # Man Lymphocytes # (Manual) APTT POC ABG pH ABG pH POC ABG pCO2 POC ABG pO2 ABG pO2 ABG HCO3 ABG Base Excess ABG Hemoglobin VBG pH Oxyhemoglobin Sodium Potassium Chloride Carbon Dioxide BUN Creatinine Glucose POC Glucose 239 H 130 H 189 H Lactic Acid Calcium AST ALT Alkaline Phosphatase CK-MB (CK-2) CK-MB (CK-2) Rel Index Total Protein Albumin TSH Urine WBC (Auto) Salicylates 02/16/17 02/16/17 02/16/17 00:14 05:09 12:31 WBC RBC Hgb Hct MCV MCH RDW Plt Count Lymph % (Auto) Hill % (Auto) Eos % (Auto) Seg Neutrophils % Seg Neuts % (Manual) Lymphocytes % (Manual) Seg Neutrophils # Seg Neutrophils # Man Lymphocytes # (Manual) APTT POC ABG pH ABG pH POC ABG pCO2 POC ABG pO2 ABG pO2 ABG HCO3 ABG Base Excess ABG Hemoglobin VBG pH Oxyhemoglobin Sodium Potassium Chloride Carbon Dioxide BUN Creatinine Glucose POC Glucose 197 H 226 H 178 H Lactic Acid Calcium AST ALT Alkaline Phosphatase CK-MB (CK-2) CK-MB (CK-2) Rel Index Total Protein Albumin TSH Urine WBC (Auto) Salicylates 02/16/17 02/16/17 02/17/17 16:35 23:49 05:37 WBC RBC Hgb Hct MCV MCH RDW Plt Count Lymph % (Auto) [place] % (Auto) Eos % (Auto) Seg Neutrophils % Seg Neuts % (Manual) Lymphocytes % (Manual) Seg Neutrophils # Seg Neutrophils # Man Lymphocytes # (Manual) APTT POC ABG pH ABG pH POC ABG pCO2 POC ABG pO2 ABG pO2 ABG HCO3 ABG Base Excess ABG Hemoglobin VBG pH Oxyhemoglobin Sodium Potassium Chloride Carbon Dioxide BUN Creatinine Glucose POC Glucose 174 H 62 L 153 H Lactic Acid Calcium AST ALT Alkaline Phosphatase CK-MB (CK-2) CK-MB (CK-2) Rel Index Total Protein Albumin TSH Urine WBC (Auto) Salicylates 02/17/17 02/17/17 02/17/17 11:39 17:02 22:24 WBC RBC Hgb Hct MCV MCH RDW Plt Count Lymph % (Auto) [place] % (Auto) Eos % (Auto) Seg Neutrophils % Seg Neuts % (Manual) Lymphocytes % (Manual) Seg Neutrophils # Seg Neutrophils # Man Lymphocytes # (Manual) APTT POC ABG pH ABG pH POC ABG pCO2 POC ABG pO2 ABG pO2 ABG HCO3 ABG Base Excess ABG Hemoglobin VBG pH Oxyhemoglobin Sodium Potassium Chloride Carbon Dioxide BUN Creatinine Glucose POC Glucose 231 H 112 H 116 H Lactic Acid Calcium AST ALT Alkaline Phosphatase CK-MB (CK-2) CK-MB (CK-2) Rel Index Total Protein Albumin TSH Urine WBC (Auto) Salicylates 02/18/17 02/19/17 02/19/17 15:34 05:09 07:57 WBC RBC Hgb Hct MCV MCH RDW Plt Count Lymph % (Auto) [place] % (Auto) Eos % (Auto) Seg Neutrophils % Seg Neuts % (Manual) Lymphocytes % (Manual) Seg Neutrophils # Seg Neutrophils # Man Lymphocytes # (Manual) APTT POC ABG pH ABG pH POC ABG pCO2 POC ABG pO2 ABG pO2 ABG HCO3 ABG Base Excess ABG Hemoglobin VBG pH Oxyhemoglobin Sodium Potassium Chloride Carbon Dioxide BUN Creatinine Glucose POC Glucose 215 H 218 H 283 H Lactic Acid Calcium AST ALT Alkaline Phosphatase CK-MB (CK-2) CK-MB (CK-2) Rel Index Total Protein Albumin TSH Urine WBC (Auto) Salicylates 02/19/17 02/19/17 02/20/17 14:49 22:10 05:10 WBC RBC Hgb Hct MCV MCH RDW Plt Count Lymph % (Auto) [place] % (Auto) Eos % (Auto) Seg Neutrophils % Seg Neuts % (Manual) Lymphocytes % (Manual) Seg Neutrophils # Seg Neutrophils # Man Lymphocytes # (Manual) APTT POC ABG pH ABG pH POC ABG pCO2 POC ABG pO2 ABG pO2 ABG HCO3 ABG Base Excess ABG Hemoglobin VBG pH Oxyhemoglobin Sodium Potassium Chloride Carbon Dioxide BUN Creatinine Glucose POC Glucose 290 H 169 H 209 H Lactic Acid Calcium AST ALT Alkaline Phosphatase CK-MB (CK-2) CK-MB (CK-2) Rel Index Total Protein Albumin TSH Urine WBC (Auto) Salicylates 02/20/17 02/20/17 02/21/17 15:05 21:52 02:00 WBC RBC Hgb Hct MCV MCH RDW Plt Count Lymph % (Auto) [place] % (Auto) Eos % (Auto) Seg Neutrophils % Seg Neuts % (Manual) Lymphocytes % (Manual) Seg Neutrophils # Seg Neutrophils # Man Lymphocytes # (Manual) APTT POC ABG pH ABG pH POC ABG pCO2 POC ABG pO2 ABG pO2 ABG HCO3 ABG Base Excess ABG Hemoglobin VBG pH Oxyhemoglobin Sodium Potassium Chloride Carbon Dioxide BUN Creatinine Glucose POC Glucose 172 H 209 H 216 H Lactic Acid Calcium AST ALT Alkaline Phosphatase CK-MB (CK-2) CK-MB (CK-2) Rel Index Total Protein Albumin TSH Urine WBC (Auto) Salicylates 02/21/17 02/21/17 02/21/17 04:54 14:43 17:47 WBC RBC Hgb Hct MCV MCH RDW Plt Count Lymph % (Auto) Hill % (Auto) Eos % (Auto) Seg Neutrophils % Seg Neuts % (Manual) Lymphocytes % (Manual) Seg Neutrophils # Seg Neutrophils # Man Lymphocytes # (Manual) APTT POC ABG pH ABG pH POC ABG pCO2 POC ABG pO2 ABG pO2 ABG HCO3 ABG Base Excess ABG Hemoglobin VBG pH Oxyhemoglobin Sodium Potassium Chloride Carbon Dioxide BUN Creatinine Glucose POC Glucose 227 H 290 H 220 H Lactic Acid Calcium AST ALT Alkaline Phosphatase CK-MB (CK-2) CK-MB (CK-2) Rel Index Total Protein Albumin TSH Urine WBC (Auto) Salicylates 02/21/17 02/22/17 02/22/17 22:02 04:52 15:25 WBC RBC Hgb Hct MCV MCH RDW Plt Count Lymph % (Auto) Hill % (Auto) Eos % (Auto) Seg Neutrophils % Seg Neuts % (Manual) Lymphocytes % (Manual) Seg Neutrophils # Seg Neutrophils # Man Lymphocytes # (Manual) APTT POC ABG pH ABG pH POC ABG pCO2 POC ABG pO2 ABG pO2 ABG HCO3 ABG Base Excess ABG Hemoglobin VBG pH Oxyhemoglobin Sodium Potassium Chloride Carbon Dioxide BUN Creatinine Glucose POC Glucose 246 H 212 H 236 H Lactic Acid Calcium AST ALT Alkaline Phosphatase CK-MB (CK-2) CK-MB (CK-2) Rel Index Total Protein Albumin TSH Urine WBC (Auto) Salicylates 02/22/17 02/23/17 02/23/17 21:33 06:04 10:00 WBC RBC Hgb Hct MCV MCH RDW Plt Count Lymph % (Auto) Hill % (Auto) Eos % (Auto) Seg Neutrophils % Seg Neuts % (Manual) Lymphocytes % (Manual) Seg Neutrophils # Seg Neutrophils # Man Lymphocytes # (Manual) APTT POC ABG pH ABG pH POC ABG pCO2 POC ABG pO2 ABG pO2 ABG HCO3 ABG Base Excess ABG Hemoglobin VBG pH Oxyhemoglobin Sodium Potassium Chloride Carbon Dioxide BUN Creatinine Glucose POC Glucose 255 H 208 H 174 H Lactic Acid Calcium AST ALT Alkaline Phosphatase CK-MB (CK-2) CK-MB (CK-2) Rel Index Total Protein Albumin TSH Urine WBC (Auto) Salicylates 02/23/17 02/23/17 02/23/17 12:52 17:15 21:51 WBC RBC Hgb Hct MCV MCH RDW Plt Count Lymph % (Auto) Hill % (Auto) Eos % (Auto) Seg Neutrophils % Seg Neuts % (Manual) Lymphocytes % (Manual) Seg Neutrophils # Seg Neutrophils # Man Lymphocytes # (Manual) APTT POC ABG pH ABG pH POC ABG pCO2 POC ABG pO2 ABG pO2 ABG HCO3 ABG Base Excess ABG Hemoglobin VBG pH Oxyhemoglobin Sodium Potassium Chloride Carbon Dioxide BUN Creatinine Glucose POC Glucose 203 H 269 H 205 H Lactic Acid Calcium AST ALT Alkaline Phosphatase CK-MB (CK-2) CK-MB (CK-2) Rel Index Total Protein Albumin TSH Urine WBC (Auto) Salicylates 02/24/17 02/24/17 02/24/17 10:23 17:45 21:24 WBC RBC Hgb Hct MCV MCH RDW Plt Count Lymph % (Auto) Hill % (Auto) Eos % (Auto) Seg Neutrophils % Seg Neuts % (Manual) Lymphocytes % (Manual) Seg Neutrophils # Seg Neutrophils # Man Lymphocytes # (Manual) APTT POC ABG pH ABG pH POC ABG pCO2 POC ABG pO2 ABG pO2 ABG HCO3 ABG Base Excess ABG Hemoglobin VBG pH Oxyhemoglobin Sodium Potassium Chloride Carbon Dioxide BUN Creatinine Glucose POC Glucose 280 H 239 H 254 H Lactic Acid Calcium AST ALT Alkaline Phosphatase CK-MB (CK-2) CK-MB (CK-2) Rel Index Total Protein Albumin TSH Urine WBC (Auto) Salicylates 02/25/17 02/25/17 02/25/17 02:12 05:17 14:32 WBC RBC Hgb Hct MCV MCH RDW Plt Count Lymph % (Auto) Hill % (Auto) Eos % (Auto) Seg Neutrophils % Seg Neuts % (Manual) Lymphocytes % (Manual) Seg Neutrophils # Seg Neutrophils # Man Lymphocytes # (Manual) APTT POC ABG pH ABG pH POC ABG pCO2 POC ABG pO2 ABG pO2 ABG HCO3 ABG Base Excess ABG Hemoglobin VBG pH Oxyhemoglobin Sodium Potassium Chloride Carbon Dioxide BUN Creatinine Glucose POC Glucose 296 H 332 H 353 H Lactic Acid Calcium AST ALT Alkaline Phosphatase CK-MB (CK-2) CK-MB (CK-2) Rel Index Total Protein Albumin TSH Urine WBC (Auto) Salicylates 02/25/17 02/26/17 02/26/17 22:14 00:37 05:52 WBC RBC Hgb Hct MCV MCH RDW Plt Count Lymph % (Auto) [place] % (Auto) Eos % (Auto) Seg Neutrophils % Seg Neuts % (Manual) Lymphocytes % (Manual) Seg Neutrophils # Seg Neutrophils # Man Lymphocytes # (Manual) APTT POC ABG pH ABG pH POC ABG pCO2 POC ABG pO2 ABG pO2 ABG HCO3 ABG Base Excess ABG Hemoglobin VBG pH Oxyhemoglobin Sodium Potassium Chloride Carbon Dioxide BUN Creatinine Glucose POC Glucose 201 H 233 H 269 H Lactic Acid Calcium AST ALT Alkaline Phosphatase CK-MB (CK-2) CK-MB (CK-2) Rel Index Total Protein Albumin TSH Urine WBC (Auto) Salicylates 02/26/17 02/26/17 02/26/17 11:48 13:49 21:26 WBC RBC Hgb Hct MCV MCH RDW Plt Count Lymph % (Auto) Hill % (Auto) Eos % (Auto) Seg Neutrophils % Seg Neuts % (Manual) Lymphocytes % (Manual) Seg Neutrophils # Seg Neutrophils # Man Lymphocytes # (Manual) APTT POC ABG pH ABG pH POC ABG pCO2 POC ABG pO2 ABG pO2 ABG HCO3 ABG Base Excess ABG Hemoglobin VBG pH Oxyhemoglobin Sodium Potassium Chloride Carbon Dioxide BUN Creatinine Glucose POC Glucose 333 H 322 H 244 H Lactic Acid Calcium AST ALT Alkaline Phosphatase CK-MB (CK-2) CK-MB (CK-2) Rel Index Total Protein Albumin TSH Urine WBC (Auto) Salicylates 02/27/17 02/27/17 02/27/17 05:27 13:51 21:48 WBC RBC Hgb Hct MCV MCH RDW Plt Count Lymph % (Auto) [place] % (Auto) Eos % (Auto) Seg Neutrophils % Seg Neuts % (Manual) Lymphocytes % (Manual) Seg Neutrophils # Seg Neutrophils # Man Lymphocytes # (Manual) APTT POC ABG pH ABG pH POC ABG pCO2 POC ABG pO2 ABG pO2 ABG HCO3 ABG Base Excess ABG Hemoglobin VBG pH Oxyhemoglobin Sodium Potassium Chloride Carbon Dioxide BUN Creatinine Glucose POC Glucose 217 H 239 H 254 H Lactic Acid Calcium AST ALT Alkaline Phosphatase CK-MB (CK-2) CK-MB (CK-2) Rel Index Total Protein Albumin TSH Urine WBC (Auto) Salicylates 02/28/17 02/28/17 02/28/17 05:38 11:00 19:44 WBC RBC Hgb Hct MCV MCH RDW Plt Count Lymph % (Auto) [place] % (Auto) Eos % (Auto) Seg Neutrophils % Seg Neuts % (Manual) Lymphocytes % (Manual) Seg Neutrophils # Seg Neutrophils # Man Lymphocytes # (Manual) APTT POC ABG pH ABG pH POC ABG pCO2 POC ABG pO2 ABG pO2 ABG HCO3 ABG Base Excess ABG Hemoglobin VBG pH Oxyhemoglobin Sodium Potassium Chloride Carbon Dioxide BUN Creatinine Glucose POC Glucose 325 H 203 H 116 H Lactic Acid Calcium AST ALT Alkaline Phosphatase CK-MB (CK-2) CK-MB (CK-2) Rel Index Total Protein Albumin TSH Urine WBC (Auto) Salicylates 03/01/17 03/01/17 03/01/17 00:08 05:31 12:17 WBC RBC Hgb Hct MCV MCH RDW Plt Count Lymph % (Auto) [place] % (Auto) Eos % (Auto) Seg Neutrophils % Seg Neuts % (Manual) Lymphocytes % (Manual) Seg Neutrophils # Seg Neutrophils # Man Lymphocytes # (Manual) APTT POC ABG pH ABG pH POC ABG pCO2 POC ABG pO2 ABG pO2 ABG HCO3 ABG Base Excess ABG Hemoglobin VBG pH Oxyhemoglobin Sodium Potassium Chloride Carbon Dioxide BUN Creatinine Glucose POC Glucose 202 H 183 H 184 H Lactic Acid Calcium AST ALT Alkaline Phosphatase CK-MB (CK-2) CK-MB (CK-2) Rel Index Total Protein Albumin TSH Urine WBC (Auto) Salicylates 03/02/17 03/02/17 03/02/17 00:12 05:58 18:22 WBC RBC Hgb Hct MCV MCH RDW Plt Count Lymph % (Auto) [place] % (Auto) Eos % (Auto) Seg Neutrophils % Seg Neuts % (Manual) Lymphocytes % (Manual) Seg Neutrophils # Seg Neutrophils # Man Lymphocytes # (Manual) APTT POC ABG pH ABG pH POC ABG pCO2 POC ABG pO2 ABG pO2 ABG HCO3 ABG Base Excess ABG Hemoglobin VBG pH Oxyhemoglobin Sodium Potassium Chloride Carbon Dioxide BUN Creatinine Glucose POC Glucose 117 H 176 H 156 H Lactic Acid Calcium AST ALT Alkaline Phosphatase CK-MB (CK-2) CK-MB (CK-2) Rel Index Total Protein Albumin TSH Urine WBC (Auto) Salicylates 03/02/17 03/03/17 03/03/17 23:51 05:44 11:32 WBC RBC Hgb Hct MCV MCH RDW Plt Count Lymph % (Auto) [place] % (Auto) Eos % (Auto) Seg Neutrophils % Seg Neuts % (Manual) Lymphocytes % (Manual) Seg Neutrophils # Seg Neutrophils # Man Lymphocytes # (Manual) APTT POC ABG pH ABG pH POC ABG pCO2 POC ABG pO2 ABG pO2 ABG HCO3 ABG Base Excess ABG Hemoglobin VBG pH Oxyhemoglobin Sodium Potassium Chloride Carbon Dioxide BUN Creatinine Glucose POC Glucose 211 H 117 H 133 H Lactic Acid Calcium AST ALT Alkaline Phosphatase CK-MB (CK-2) CK-MB (CK-2) Rel Index Total Protein Albumin TSH Urine WBC (Auto) Salicylates 03/03/17 03/03/17 03/04/17 17:43 23:17 05:30 WBC RBC Hgb Hct MCV MCH RDW Plt Count Lymph % (Auto) [place] % (Auto) Eos % (Auto) Seg Neutrophils % Seg Neuts % (Manual) Lymphocytes % (Manual) Seg Neutrophils # Seg Neutrophils # Man Lymphocytes # (Manual) APTT POC ABG pH ABG pH POC ABG pCO2 POC ABG pO2 ABG pO2 ABG HCO3 ABG Base Excess ABG Hemoglobin VBG pH Oxyhemoglobin Sodium Potassium Chloride Carbon Dioxide BUN Creatinine Glucose POC Glucose 206 H 170 H 126 H Lactic Acid Calcium AST ALT Alkaline Phosphatase CK-MB (CK-2) CK-MB (CK-2) Rel Index Total Protein Albumin TSH Urine WBC (Auto) Salicylates 03/04/17 03/04/17 03/05/17 12:17 17:27 05:20 WBC RBC Hgb Hct MCV MCH RDW Plt Count Lymph % (Auto) [place] % (Auto) Eos % (Auto) Seg Neutrophils % Seg Neuts % (Manual) Lymphocytes % (Manual) Seg Neutrophils # Seg Neutrophils # Man Lymphocytes # (Manual) APTT POC ABG pH ABG pH POC ABG pCO2 POC ABG pO2 ABG pO2 ABG HCO3 ABG Base Excess ABG Hemoglobin VBG pH Oxyhemoglobin Sodium Potassium Chloride Carbon Dioxide BUN Creatinine Glucose POC Glucose 135 H 121 H 185 H Lactic Acid Calcium AST ALT Alkaline Phosphatase CK-MB (CK-2) CK-MB (CK-2) Rel Index Total Protein Albumin TSH Urine WBC (Auto) Salicylates 03/05/17 03/06/17 03/06/17 11:50 11:52 17:34 WBC RBC Hgb Hct MCV MCH RDW Plt Count Lymph % (Auto) [place] % (Auto) Eos % (Auto) Seg Neutrophils % Seg Neuts % (Manual) Lymphocytes % (Manual) Seg Neutrophils # Seg Neutrophils # Man Lymphocytes # (Manual) APTT POC ABG pH ABG pH POC ABG pCO2 POC ABG pO2 ABG pO2 ABG HCO3 ABG Base Excess ABG Hemoglobin VBG pH Oxyhemoglobin Sodium Potassium Chloride Carbon Dioxide BUN Creatinine Glucose POC Glucose 116 H 133 H 181 H Lactic Acid Calcium AST ALT Alkaline Phosphatase CK-MB (CK-2) CK-MB (CK-2) Rel Index Total Protein Albumin TSH Urine WBC (Auto) Salicylates 03/07/17 03/07/17 03/07/17 05:21 11:36 17:49 WBC RBC Hgb Hct MCV MCH RDW Plt Count Lymph % (Auto) [place] % (Auto) Eos % (Auto) Seg Neutrophils % Seg Neuts % (Manual) Lymphocytes % (Manual) Seg Neutrophils # Seg Neutrophils # Man Lymphocytes # (Manual) APTT POC ABG pH ABG pH POC ABG pCO2 POC ABG pO2 ABG pO2 ABG HCO3 ABG Base Excess ABG Hemoglobin VBG pH Oxyhemoglobin Sodium Potassium Chloride Carbon Dioxide BUN Creatinine Glucose POC Glucose 159 H 137 H 158 H Lactic Acid Calcium AST ALT Alkaline Phosphatase CK-MB (CK-2) CK-MB (CK-2) Rel Index Total Protein Albumin TSH Urine WBC (Auto) Salicylates 03/08/17 03/08/17 03/08/17 05:51 13:58 23:50 WBC RBC Hgb Hct MCV MCH RDW Plt Count Lymph % (Auto) [place] % (Auto) Eos % (Auto) Seg Neutrophils % Seg Neuts % (Manual) Lymphocytes % (Manual) Seg Neutrophils # Seg Neutrophils # Man Lymphocytes # (Manual) APTT POC ABG pH ABG pH POC ABG pCO2 POC ABG pO2 ABG pO2 ABG HCO3 ABG Base Excess ABG Hemoglobin VBG pH Oxyhemoglobin Sodium Potassium Chloride Carbon Dioxide BUN Creatinine Glucose POC Glucose 122 H 182 H 114 H Lactic Acid Calcium AST ALT Alkaline Phosphatase CK-MB (CK-2) CK-MB (CK-2) Rel Index Total Protein Albumin TSH Urine WBC (Auto) Salicylates 03/09/17 03/09/17 03/09/17 05:21 05:51 05:51 WBC RBC 3.61 L Hgb 9.5 L Hct 28.3 L MCV 79 L MCH 26 L RDW 17.8 H Plt Count Lymph % (Auto) [place] % (Auto) Eos % (Auto) Seg Neutrophils % Seg Neuts % (Manual) Lymphocytes % (Manual) Seg Neutrophils # Seg Neutrophils # Man Lymphocytes # (Manual) APTT POC ABG pH ABG pH POC ABG pCO2 POC ABG pO2 ABG pO2 ABG HCO3 ABG Base Excess ABG Hemoglobin VBG pH Oxyhemoglobin Sodium 134 L Potassium Chloride 95.5 L Carbon Dioxide BUN 33 H Creatinine 0.5 L Glucose 143 H POC Glucose 153 H Lactic Acid Calcium AST ALT Alkaline Phosphatase CK-MB (CK-2) CK-MB (CK-2) Rel Index Total Protein Albumin TSH Urine WBC (Auto) Salicylates 03/09/17 03/09/17 03/09/17 12:10 18:13 21:00 WBC RBC Hgb Hct MCV MCH RDW Plt Count Lymph % (Auto) [place] % (Auto) Eos % (Auto) Seg Neutrophils % Seg Neuts % (Manual) Lymphocytes % (Manual) Seg Neutrophils # Seg Neutrophils # Man Lymphocytes # (Manual) APTT POC ABG pH ABG pH POC ABG pCO2 POC ABG pO2 ABG pO2 ABG HCO3 ABG Base Excess ABG Hemoglobin VBG pH Oxyhemoglobin Sodium Potassium Chloride Carbon Dioxide BUN Creatinine Glucose POC Glucose 203 H 221 H 198 H Lactic Acid Calcium AST ALT Alkaline Phosphatase CK-MB (CK-2) CK-MB (CK-2) Rel Index Total Protein Albumin TSH Urine WBC (Auto) Salicylates 03/09/17 03/10/17 03/10/17 23:58 05:09 05:09 WBC RBC Hgb 10.3 L Hct 30.5 L MCV 78 L MCH 26 L RDW 17.9 H Plt Count Lymph % (Auto) Hill % (Auto) 10.0 H Eos % (Auto) 6.0 H Seg Neutrophils % Seg Neuts % (Manual) Lymphocytes % (Manual) Seg Neutrophils # Seg Neutrophils # Man Lymphocytes # (Manual) APTT POC ABG pH ABG pH POC ABG pCO2 POC ABG pO2 ABG pO2 ABG HCO3 ABG Base Excess ABG Hemoglobin VBG pH Oxyhemoglobin Sodium 132 L Potassium Chloride 92.2 L Carbon Dioxide BUN 33 H Creatinine 0.5 L Glucose 50 L POC Glucose 167 H Lactic Acid Calcium AST ALT Alkaline Phosphatase CK-MB (CK-2) CK-MB (CK-2) Rel Index Total Protein Albumin TSH Urine WBC (Auto) Salicylates 03/10/17 03/10/17 03/10/17 05:33 05:34 11:48 WBC RBC Hgb Hct MCV MCH RDW Plt Count Lymph % (Auto) [place] % (Auto) Eos % (Auto) Seg Neutrophils % Seg Neuts % (Manual) Lymphocytes % (Manual) Seg Neutrophils # Seg Neutrophils # Man Lymphocytes # (Manual) APTT POC ABG pH ABG pH POC ABG pCO2 POC ABG pO2 ABG pO2 ABG HCO3 ABG Base Excess ABG Hemoglobin VBG pH Oxyhemoglobin Sodium Potassium Chloride Carbon Dioxide BUN Creatinine Glucose POC Glucose 52 L 53 L 148 H Lactic Acid Calcium AST ALT Alkaline Phosphatase CK-MB (CK-2) CK-MB (CK-2) Rel Index Total Protein Albumin TSH Urine WBC (Auto) Salicylates 03/10/17 03/10/17 03/11/17 17:53 23:47 05:18 WBC RBC Hgb Hct MCV MCH RDW Plt Count Lymph % (Auto) [place] % (Auto) Eos % (Auto) Seg Neutrophils % Seg Neuts % (Manual) Lymphocytes % (Manual) Seg Neutrophils # Seg Neutrophils # Man Lymphocytes # (Manual) APTT POC ABG pH ABG pH POC ABG pCO2 POC ABG pO2 ABG pO2 ABG HCO3 ABG Base Excess ABG Hemoglobin VBG pH Oxyhemoglobin Sodium Potassium Chloride Carbon Dioxide BUN Creatinine Glucose POC Glucose 189 H 398 H 126 H Lactic Acid Calcium AST ALT Alkaline Phosphatase CK-MB (CK-2) CK-MB (CK-2) Rel Index Total Protein Albumin TSH Urine WBC (Auto) Salicylates 03/11/17 03/11/17 03/11/17 11:53 17:30 23:10 WBC RBC Hgb Hct MCV MCH RDW Plt Count Lymph % (Auto) [place] % (Auto) Eos % (Auto) Seg Neutrophils % Seg Neuts % (Manual) Lymphocytes % (Manual) Seg Neutrophils # Seg Neutrophils # Man Lymphocytes # (Manual) APTT POC ABG pH ABG pH POC ABG pCO2 POC ABG pO2 ABG pO2 ABG HCO3 ABG Base Excess ABG Hemoglobin VBG pH Oxyhemoglobin Sodium Potassium Chloride Carbon Dioxide BUN Creatinine Glucose POC Glucose 198 H 142 H 244 H Lactic Acid Calcium AST ALT Alkaline Phosphatase CK-MB (CK-2) CK-MB (CK-2) Rel Index Total Protein Albumin TSH Urine WBC (Auto) Salicylates 03/12/17 03/12/17 03/12/17 04:36 11:49 17:23 WBC RBC Hgb Hct MCV MCH RDW Plt Count Lymph % (Auto) [place] % (Auto) Eos % (Auto) Seg Neutrophils % Seg Neuts % (Manual) Lymphocytes % (Manual) Seg Neutrophils # Seg Neutrophils # Man Lymphocytes # (Manual) APTT POC ABG pH ABG pH POC ABG pCO2 POC ABG pO2 ABG pO2 ABG HCO3 ABG Base Excess ABG Hemoglobin VBG pH Oxyhemoglobin Sodium Potassium Chloride Carbon Dioxide BUN Creatinine Glucose POC Glucose 205 H 197 H 209 H Lactic Acid Calcium AST ALT Alkaline Phosphatase CK-MB (CK-2) CK-MB (CK-2) Rel Index Total Protein Albumin TSH Urine WBC (Auto) Salicylates 03/12/17 03/13/17 03/13/17 23:51 05:32 11:43 WBC RBC Hgb Hct MCV MCH RDW Plt Count Lymph % (Auto) [place] % (Auto) Eos % (Auto) Seg Neutrophils % Seg Neuts % (Manual) Lymphocytes % (Manual) Seg Neutrophils # Seg Neutrophils # Man Lymphocytes # (Manual) APTT POC ABG pH ABG pH POC ABG pCO2 POC ABG pO2 ABG pO2 ABG HCO3 ABG Base Excess ABG Hemoglobin VBG pH Oxyhemoglobin Sodium Potassium Chloride Carbon Dioxide BUN Creatinine Glucose POC Glucose 210 H 154 H 164 H Lactic Acid Calcium AST ALT Alkaline Phosphatase CK-MB (CK-2) CK-MB (CK-2) Rel Index Total Protein Albumin TSH Urine WBC (Auto) Salicylates 03/13/17 03/13/17 03/14/17 17:11 23:26 05:42 WBC RBC Hgb Hct MCV MCH RDW Plt Count Lymph % (Auto) [place] % (Auto) Eos % (Auto) Seg Neutrophils % Seg Neuts % (Manual) Lymphocytes % (Manual) Seg Neutrophils # Seg Neutrophils # Man Lymphocytes # (Manual) APTT POC ABG pH ABG pH POC ABG pCO2 POC ABG pO2 ABG pO2 ABG HCO3 ABG Base Excess ABG Hemoglobin VBG pH Oxyhemoglobin Sodium Potassium Chloride Carbon Dioxide BUN Creatinine Glucose POC Glucose 195 H 240 H 230 H Lactic Acid Calcium AST ALT Alkaline Phosphatase CK-MB (CK-2) CK-MB (CK-2) Rel Index Total Protein Albumin TSH Urine WBC (Auto) Salicylates 03/14/17 03/14/17 03/14/17 14:04 17:34 23:42 WBC RBC Hgb Hct MCV MCH RDW Plt Count Lymph % (Auto) [place] % (Auto) Eos % (Auto) Seg Neutrophils % Seg Neuts % (Manual) Lymphocytes % (Manual) Seg Neutrophils # Seg Neutrophils # Man Lymphocytes # (Manual) APTT POC ABG pH ABG pH POC ABG pCO2 POC ABG pO2 ABG pO2 ABG HCO3 ABG Base Excess ABG Hemoglobin VBG pH Oxyhemoglobin Sodium Potassium Chloride Carbon Dioxide BUN Creatinine Glucose POC Glucose 227 H 186 H 225 H Lactic Acid Calcium AST ALT Alkaline Phosphatase CK-MB (CK-2) CK-MB (CK-2) Rel Index Total Protein Albumin TSH Urine WBC (Auto) Salicylates 03/15/17 03/15/17 03/15/17 05:21 17:13 21:37 WBC RBC Hgb Hct MCV MCH RDW Plt Count Lymph % (Auto) [place] % (Auto) Eos % (Auto) Seg Neutrophils % Seg Neuts % (Manual) Lymphocytes % (Manual) Seg Neutrophils # Seg Neutrophils # Man Lymphocytes # (Manual) APTT POC ABG pH ABG pH POC ABG pCO2 POC ABG pO2 ABG pO2 ABG HCO3 ABG Base Excess ABG Hemoglobin VBG pH Oxyhemoglobin Sodium Potassium Chloride Carbon Dioxide BUN Creatinine Glucose POC Glucose 244 H 203 H 216 H Lactic Acid Calcium AST ALT Alkaline Phosphatase CK-MB (CK-2) CK-MB (CK-2) Rel Index Total Protein Albumin TSH Urine WBC (Auto) Salicylates 03/16/17 03/16/17 03/16/17 05:52 18:07 21:54 WBC RBC Hgb Hct MCV MCH RDW Plt Count Lymph % (Auto) [place] % (Auto) Eos % (Auto) Seg Neutrophils % Seg Neuts % (Manual) Lymphocytes % (Manual) Seg Neutrophils # Seg Neutrophils # Man Lymphocytes # (Manual) APTT POC ABG pH ABG pH POC ABG pCO2 POC ABG pO2 ABG pO2 ABG HCO3 ABG Base Excess ABG Hemoglobin VBG pH Oxyhemoglobin Sodium Potassium Chloride Carbon Dioxide BUN Creatinine Glucose POC Glucose 248 H 254 H 244 H Lactic Acid Calcium AST ALT Alkaline Phosphatase CK-MB (CK-2) CK-MB (CK-2) Rel Index Total Protein Albumin TSH Urine WBC (Auto) Salicylates 03/17/17 03/17/17 03/17/17 07:07 07:42 07:43 WBC RBC Hgb 9.7 L Hct 29.1 L MCV 78 L MCH 26 L RDW 17.4 H Plt Count Lymph % (Auto) [place] % (Auto) Eos % (Auto) Seg Neutrophils % Seg Neuts % (Manual) Lymphocytes % (Manual) Seg Neutrophils # Seg Neutrophils # Man Lymphocytes # (Manual) APTT POC ABG pH ABG pH POC ABG pCO2 POC ABG pO2 ABG pO2 ABG HCO3 ABG Base Excess ABG Hemoglobin VBG pH Oxyhemoglobin Sodium Potassium Chloride 96.6 L Carbon Dioxide BUN 30 H Creatinine 0.5 L Glucose 251 H POC Glucose 222 H Lactic Acid Calcium AST ALT Alkaline Phosphatase CK-MB (CK-2) CK-MB (CK-2) Rel Index Total Protein Albumin TSH Urine WBC (Auto) Salicylates 03/17/17 03/17/17 03/18/17 14:08 21:20 14:24 WBC RBC Hgb Hct MCV MCH RDW Plt Count Lymph % (Auto) [place] % (Auto) Eos % (Auto) Seg Neutrophils % Seg Neuts % (Manual) Lymphocytes % (Manual) Seg Neutrophils # Seg Neutrophils # Man Lymphocytes # (Manual) APTT POC ABG pH ABG pH POC ABG pCO2 POC ABG pO2 ABG pO2 ABG HCO3 ABG Base Excess ABG Hemoglobin VBG pH Oxyhemoglobin Sodium Potassium Chloride Carbon Dioxide BUN Creatinine Glucose POC Glucose 281 H 239 H 195 H Lactic Acid Calcium AST ALT Alkaline Phosphatase CK-MB (CK-2) CK-MB (CK-2) Rel Index Total Protein Albumin TSH Urine WBC (Auto) Salicylates 03/18/17 03/19/17 03/19/17 21:37 04:57 14:23 WBC RBC Hgb Hct MCV MCH RDW Plt Count Lymph % (Auto) [place] % (Auto) Eos % (Auto) Seg Neutrophils % Seg Neuts % (Manual) Lymphocytes % (Manual) Seg Neutrophils # Seg Neutrophils # Man Lymphocytes # (Manual) APTT POC ABG pH ABG pH POC ABG pCO2 POC ABG pO2 ABG pO2 ABG HCO3 ABG Base Excess ABG Hemoglobin VBG pH Oxyhemoglobin Sodium Potassium Chloride Carbon Dioxide BUN Creatinine Glucose POC Glucose 227 H 205 H 277 H Lactic Acid Calcium AST ALT Alkaline Phosphatase CK-MB (CK-2) CK-MB (CK-2) Rel Index Total Protein Albumin TSH Urine WBC (Auto) Salicylates 03/19/17 03/19/17 03/20/17 20:31 21:47 04:55 WBC RBC Hgb Hct MCV MCH RDW Plt Count Lymph % (Auto) [place] % (Auto) Eos % (Auto) Seg Neutrophils % Seg Neuts % (Manual) Lymphocytes % (Manual) Seg Neutrophils # Seg Neutrophils # Man Lymphocytes # (Manual) APTT POC ABG pH ABG pH POC ABG pCO2 POC ABG pO2 ABG pO2 ABG HCO3 ABG Base Excess ABG Hemoglobin VBG pH Oxyhemoglobin Sodium Potassium Chloride Carbon Dioxide BUN Creatinine Glucose POC Glucose 256 H 270 H 202 H Lactic Acid Calcium AST ALT Alkaline Phosphatase CK-MB (CK-2) CK-MB (CK-2) Rel Index Total Protein Albumin TSH Urine WBC (Auto) Salicylates 03/20/17 03/20/17 03/21/17 14:09 21:40 05:09 WBC RBC Hgb Hct MCV MCH RDW Plt Count Lymph % (Auto) [place] % (Auto) Eos % (Auto) Seg Neutrophils % Seg Neuts % (Manual) Lymphocytes % (Manual) Seg Neutrophils # Seg Neutrophils # Man Lymphocytes # (Manual) APTT POC ABG pH ABG pH POC ABG pCO2 POC ABG pO2 ABG pO2 ABG HCO3 ABG Base Excess ABG Hemoglobin VBG pH Oxyhemoglobin Sodium Potassium Chloride Carbon Dioxide BUN Creatinine Glucose POC Glucose 200 H 214 H 233 H Lactic Acid Calcium AST ALT Alkaline Phosphatase CK-MB (CK-2) CK-MB (CK-2) Rel Index Total Protein Albumin TSH Urine WBC (Auto) Salicylates 03/21/17 03/21/17 03/22/17 14:06 21:26 05:43 WBC RBC Hgb Hct MCV MCH RDW Plt Count Lymph % (Auto) [place] % (Auto) Eos % (Auto) Seg Neutrophils % Seg Neuts % (Manual) Lymphocytes % (Manual) Seg Neutrophils # Seg Neutrophils # Man Lymphocytes # (Manual) APTT POC ABG pH ABG pH POC ABG pCO2 POC ABG pO2 ABG pO2 ABG HCO3 ABG Base Excess ABG Hemoglobin VBG pH Oxyhemoglobin Sodium Potassium Chloride Carbon Dioxide BUN Creatinine Glucose POC Glucose 250 H 155 H 251 H Lactic Acid Calcium AST ALT Alkaline Phosphatase CK-MB (CK-2) CK-MB (CK-2) Rel Index Total Protein Albumin TSH Urine WBC (Auto) Salicylates 03/22/17 03/22/17 03/23/17 13:46 21:16 00:23 WBC RBC Hgb Hct MCV MCH RDW Plt Count Lymph % (Auto) [place] % (Auto) Eos % (Auto) Seg Neutrophils % Seg Neuts % (Manual) Lymphocytes % (Manual) Seg Neutrophils # Seg Neutrophils # Man Lymphocytes # (Manual) APTT POC ABG pH ABG pH POC ABG pCO2 POC ABG pO2 ABG pO2 ABG HCO3 ABG Base Excess ABG Hemoglobin VBG pH Oxyhemoglobin Sodium Potassium Chloride Carbon Dioxide BUN Creatinine Glucose POC Glucose 269 H 197 H 126 H Lactic Acid Calcium AST ALT Alkaline Phosphatase CK-MB (CK-2) CK-MB (CK-2) Rel Index Total Protein Albumin TSH Urine WBC (Auto) Salicylates 03/23/17 03/23/17 03/23/17 05:39 14:06 21:39 WBC RBC Hgb Hct MCV MCH RDW Plt Count Lymph % (Auto) [place] % (Auto) Eos % (Auto) Seg Neutrophils % Seg Neuts % (Manual) Lymphocytes % (Manual) Seg Neutrophils # Seg Neutrophils # Man Lymphocytes # (Manual) APTT POC ABG pH ABG pH POC ABG pCO2 POC ABG pO2 ABG pO2 ABG HCO3 ABG Base Excess ABG Hemoglobin VBG pH Oxyhemoglobin Sodium Potassium Chloride Carbon Dioxide BUN Creatinine Glucose POC Glucose 234 H 241 H 248 H Lactic Acid Calcium AST ALT Alkaline Phosphatase CK-MB (CK-2) CK-MB (CK-2) Rel Index Total Protein Albumin TSH Urine WBC (Auto) Salicylates 03/24/17 03/24/17 03/25/17 05:06 21:46 05:38 WBC RBC Hgb Hct MCV MCH RDW Plt Count Lymph % (Auto) [place] % (Auto) Eos % (Auto) Seg Neutrophils % Seg Neuts % (Manual) Lymphocytes % (Manual) Seg Neutrophils # Seg Neutrophils # Man Lymphocytes # (Manual) APTT POC ABG pH ABG pH POC ABG pCO2 POC ABG pO2 ABG pO2 ABG HCO3 ABG Base Excess ABG Hemoglobin VBG pH Oxyhemoglobin Sodium Potassium Chloride Carbon Dioxide BUN Creatinine Glucose POC Glucose 232 H 276 H 242 H Lactic Acid Calcium AST ALT Alkaline Phosphatase CK-MB (CK-2) CK-MB (CK-2) Rel Index Total Protein Albumin TSH Urine WBC (Auto) Salicylates 03/25/17 03/25/17 03/26/17 14:30 23:14 13:53 WBC RBC Hgb Hct MCV MCH RDW Plt Count Lymph % (Auto) [place] % (Auto) Eos % (Auto) Seg Neutrophils % Seg Neuts % (Manual) Lymphocytes % (Manual) Seg Neutrophils # Seg Neutrophils # Man Lymphocytes # (Manual) APTT POC ABG pH ABG pH POC ABG pCO2 POC ABG pO2 ABG pO2 ABG HCO3 ABG Base Excess ABG Hemoglobin VBG pH Oxyhemoglobin Sodium Potassium Chloride Carbon Dioxide BUN Creatinine Glucose POC Glucose 246 H 208 H 195 H Lactic Acid Calcium AST ALT Alkaline Phosphatase CK-MB (CK-2) CK-MB (CK-2) Rel Index Total Protein Albumin TSH Urine WBC (Auto) Salicylates 03/26/17 03/27/17 03/27/17 21:58 05:18 14:57 WBC RBC Hgb Hct MCV MCH RDW Plt Count Lymph % (Auto) Hill % (Auto) Eos % (Auto) Seg Neutrophils % Seg Neuts % (Manual) Lymphocytes % (Manual) Seg Neutrophils # Seg Neutrophils # Man Lymphocytes # (Manual) APTT POC ABG pH ABG pH POC ABG pCO2 POC ABG pO2 ABG pO2 ABG HCO3 ABG Base Excess ABG Hemoglobin VBG pH Oxyhemoglobin Sodium Potassium Chloride Carbon Dioxide BUN Creatinine Glucose POC Glucose 241 H 199 H 269 H Lactic Acid Calcium AST ALT Alkaline Phosphatase CK-MB (CK-2) CK-MB (CK-2) Rel Index Total Protein Albumin TSH Urine WBC (Auto) Salicylates 03/27/17 03/28/17 03/28/17 21:33 13:52 21:29 WBC RBC Hgb Hct MCV MCH RDW Plt Count Lymph % (Auto) Hill % (Auto) Eos % (Auto) Seg Neutrophils % Seg Neuts % (Manual) Lymphocytes % (Manual) Seg Neutrophils # Seg Neutrophils # Man Lymphocytes # (Manual) APTT POC ABG pH ABG pH POC ABG pCO2 POC ABG pO2 ABG pO2 ABG HCO3 ABG Base Excess ABG Hemoglobin VBG pH Oxyhemoglobin Sodium Potassium Chloride Carbon Dioxide BUN Creatinine Glucose POC Glucose 214 H 243 H 286 H Lactic Acid Calcium AST ALT Alkaline Phosphatase CK-MB (CK-2) CK-MB (CK-2) Rel Index Total Protein Albumin TSH Urine WBC (Auto) Salicylates 03/29/17 03/29/17 03/29/17 04:32 04:32 13:58 WBC RBC Hgb 10.6 L Hct 32.9 L MCV 78 L MCH 25 L RDW 17.6 H Plt Count Lymph % (Auto) 38.0 H Hill % (Auto) 9.7 H Eos % (Auto) Seg Neutrophils % Seg Neuts % (Manual) Lymphocytes % (Manual) Seg Neutrophils # Seg Neutrophils # Man Lymphocytes # (Manual) APTT POC ABG pH ABG pH POC ABG pCO2 POC ABG pO2 ABG pO2 ABG HCO3 ABG Base Excess ABG Hemoglobin VBG pH Oxyhemoglobin Sodium 132 L Potassium Chloride 94.0 L Carbon Dioxide BUN 28 H Creatinine 0.5 L Glucose 236 H POC Glucose 171 H Lactic Acid Calcium AST ALT 71 H Alkaline Phosphatase 391 H CK-MB (CK-2) CK-MB (CK-2) Rel Index Total Protein 8.3 H Albumin 2.9 L TSH Urine WBC (Auto) Salicylates 03/29/17 03/30/17 03/30/17 20:59 06:07 11:52 WBC RBC Hgb Hct MCV MCH RDW Plt Count Lymph % (Auto) [place] % (Auto) Eos % (Auto) Seg Neutrophils % Seg Neuts % (Manual) Lymphocytes % (Manual) Seg Neutrophils # Seg Neutrophils # Man Lymphocytes # (Manual) APTT POC ABG pH ABG pH POC ABG pCO2 POC ABG pO2 ABG pO2 ABG HCO3 ABG Base Excess ABG Hemoglobin VBG pH Oxyhemoglobin Sodium Potassium Chloride Carbon Dioxide BUN Creatinine Glucose POC Glucose 215 H 259 H 197 H Lactic Acid Calcium AST ALT Alkaline Phosphatase CK-MB (CK-2) CK-MB (CK-2) Rel Index Total Protein Albumin TSH Urine WBC (Auto) Salicylates 03/30/17 03/31/17 03/31/17 21:34 05:42 14:34 WBC RBC Hgb Hct MCV MCH RDW Plt Count Lymph % (Auto) [place] % (Auto) Eos % (Auto) Seg Neutrophils % Seg Neuts % (Manual) Lymphocytes % (Manual) Seg Neutrophils # Seg Neutrophils # Man Lymphocytes # (Manual) APTT POC ABG pH ABG pH POC ABG pCO2 POC ABG pO2 ABG pO2 ABG HCO3 ABG Base Excess ABG Hemoglobin VBG pH Oxyhemoglobin Sodium Potassium Chloride Carbon Dioxide BUN Creatinine Glucose POC Glucose 207 H 184 H 213 H Lactic Acid Calcium AST ALT Alkaline Phosphatase CK-MB (CK-2) CK-MB (CK-2) Rel Index Total Protein Albumin TSH Urine WBC (Auto) Salicylates 03/31/17 04/01/17 04/01/17 21:32 05:53 13:48 WBC RBC Hgb Hct MCV MCH RDW Plt Count Lymph % (Auto) [place] % (Auto) Eos % (Auto) Seg Neutrophils % Seg Neuts % (Manual) Lymphocytes % (Manual) Seg Neutrophils # Seg Neutrophils # Man Lymphocytes # (Manual) APTT POC ABG pH ABG pH POC ABG pCO2 POC ABG pO2 ABG pO2 ABG HCO3 ABG Base Excess ABG Hemoglobin VBG pH Oxyhemoglobin Sodium Potassium Chloride Carbon Dioxide BUN Creatinine Glucose POC Glucose 249 H 225 H 256 H Lactic Acid Calcium AST ALT Alkaline Phosphatase CK-MB (CK-2) CK-MB (CK-2) Rel Index Total Protein Albumin TSH Urine WBC (Auto) Salicylates 04/01/17 04/02/17 04/02/17 21:34 05:32 14:05 WBC RBC Hgb Hct MCV MCH RDW Plt Count Lymph % (Auto) [place] % (Auto) Eos % (Auto) Seg Neutrophils % Seg Neuts % (Manual) Lymphocytes % (Manual) Seg Neutrophils # Seg Neutrophils # Man Lymphocytes # (Manual) APTT POC ABG pH ABG pH POC ABG pCO2 POC ABG pO2 ABG pO2 ABG HCO3 ABG Base Excess ABG Hemoglobin VBG pH Oxyhemoglobin Sodium Potassium Chloride Carbon Dioxide BUN Creatinine Glucose POC Glucose 292 H 220 H 187 H Lactic Acid Calcium AST ALT Alkaline Phosphatase CK-MB (CK-2) CK-MB (CK-2) Rel Index Total Protein Albumin TSH Urine WBC (Auto) Salicylates 04/02/17 04/03/17 04/03/17 21:57 04:49 14:12 WBC RBC Hgb Hct MCV MCH RDW Plt Count Lymph % (Auto) [place] % (Auto) Eos % (Auto) Seg Neutrophils % Seg Neuts % (Manual) Lymphocytes % (Manual) Seg Neutrophils # Seg Neutrophils # Man Lymphocytes # (Manual) APTT POC ABG pH ABG pH POC ABG pCO2 POC ABG pO2 ABG pO2 ABG HCO3 ABG Base Excess ABG Hemoglobin VBG pH Oxyhemoglobin Sodium Potassium Chloride Carbon Dioxide BUN Creatinine Glucose POC Glucose 285 H 256 H 197 H Lactic Acid Calcium AST ALT Alkaline Phosphatase CK-MB (CK-2) CK-MB (CK-2) Rel Index Total Protein Albumin TSH Urine WBC (Auto) Salicylates 04/03/17 04/04/17 04/04/17 21:11 05:20 13:18 WBC RBC Hgb Hct MCV MCH RDW Plt Count Lymph % (Auto) [place] % (Auto) Eos % (Auto) Seg Neutrophils % Seg Neuts % (Manual) Lymphocytes % (Manual) Seg Neutrophils # Seg Neutrophils # Man Lymphocytes # (Manual) APTT POC ABG pH ABG pH POC ABG pCO2 POC ABG pO2 ABG pO2 ABG HCO3 ABG Base Excess ABG Hemoglobin VBG pH Oxyhemoglobin Sodium Potassium Chloride Carbon Dioxide BUN Creatinine Glucose POC Glucose 166 H 228 H 252 H Lactic Acid Calcium AST ALT Alkaline Phosphatase CK-MB (CK-2) CK-MB (CK-2) Rel Index Total Protein Albumin TSH Urine WBC (Auto) Salicylates 04/04/17 04/05/17 04/05/17 21:51 06:14 09:54 WBC RBC Hgb Hct MCV MCH RDW Plt Count Lymph % (Auto) [place] % (Auto) Eos % (Auto) Seg Neutrophils % Seg Neuts % (Manual) Lymphocytes % (Manual) Seg Neutrophils # Seg Neutrophils # Man Lymphocytes # (Manual) APTT POC ABG pH ABG pH POC ABG pCO2 POC ABG pO2 ABG pO2 ABG HCO3 ABG Base Excess ABG Hemoglobin VBG pH Oxyhemoglobin Sodium Potassium Chloride Carbon Dioxide BUN Creatinine Glucose POC Glucose 252 H 152 H 181 H Lactic Acid Calcium AST ALT Alkaline Phosphatase CK-MB (CK-2) CK-MB (CK-2) Rel Index Total Protein Albumin TSH Urine WBC (Auto) Salicylates 04/05/17 04/05/17 04/05/17 14:49 17:34 21:38 WBC RBC Hgb Hct MCV MCH RDW Plt Count Lymph % (Auto) [place] % (Auto) Eos % (Auto) Seg Neutrophils % Seg Neuts % (Manual) Lymphocytes % (Manual) Seg Neutrophils # Seg Neutrophils # Man Lymphocytes # (Manual) APTT POC ABG pH ABG pH POC ABG pCO2 POC ABG pO2 ABG pO2 ABG HCO3 ABG Base Excess ABG Hemoglobin VBG pH Oxyhemoglobin Sodium Potassium Chloride Carbon Dioxide BUN Creatinine Glucose POC Glucose 219 H 268 H 278 H Lactic Acid Calcium AST ALT Alkaline Phosphatase CK-MB (CK-2) CK-MB (CK-2) Rel Index Total Protein Albumin TSH Urine WBC (Auto) Salicylates 04/06/17 04/06/17 04/07/17 15:04 22:14 05:09 WBC RBC Hgb Hct MCV MCH RDW Plt Count Lymph % (Auto) [place] % (Auto) Eos % (Auto) Seg Neutrophils % Seg Neuts % (Manual) Lymphocytes % (Manual) Seg Neutrophils # Seg Neutrophils # Man Lymphocytes # (Manual) APTT POC ABG pH ABG pH POC ABG pCO2 POC ABG pO2 ABG pO2 ABG HCO3 ABG Base Excess ABG Hemoglobin VBG pH Oxyhemoglobin Sodium Potassium Chloride Carbon Dioxide BUN Creatinine Glucose POC Glucose 285 H 106 H 334 H Lactic Acid Calcium AST ALT Alkaline Phosphatase CK-MB (CK-2) CK-MB (CK-2) Rel Index Total Protein Albumin TSH Urine WBC (Auto) Salicylates 04/07/17 04/07/17 04/08/17 14:45 21:48 05:28 WBC RBC Hgb Hct MCV MCH RDW Plt Count Lymph % (Auto) [place] % (Auto) Eos % (Auto) Seg Neutrophils % Seg Neuts % (Manual) Lymphocytes % (Manual) Seg Neutrophils # Seg Neutrophils # Man Lymphocytes # (Manual) APTT POC ABG pH ABG pH POC ABG pCO2 POC ABG pO2 ABG pO2 ABG HCO3 ABG Base Excess ABG Hemoglobin VBG pH Oxyhemoglobin Sodium Potassium Chloride Carbon Dioxide BUN Creatinine Glucose POC Glucose 173 H 304 H 314 H Lactic Acid Calcium AST ALT Alkaline Phosphatase CK-MB (CK-2) CK-MB (CK-2) Rel Index Total Protein Albumin TSH Urine WBC (Auto) Salicylates 04/08/17 04/08/17 04/08/17 15:57 16:17 22:21 WBC RBC Hgb Hct MCV MCH RDW Plt Count Lymph % (Auto) [place] % (Auto) Eos % (Auto) Seg Neutrophils % Seg Neuts % (Manual) Lymphocytes % (Manual) Seg Neutrophils # Seg Neutrophils # Man Lymphocytes # (Manual) APTT POC ABG pH ABG pH POC ABG pCO2 POC ABG pO2 ABG pO2 ABG HCO3 ABG Base Excess ABG Hemoglobin VBG pH Oxyhemoglobin Sodium Potassium Chloride Carbon Dioxide BUN Creatinine Glucose POC Glucose 356 H 337 H 323 H Lactic Acid Calcium AST ALT Alkaline Phosphatase CK-MB (CK-2) CK-MB (CK-2) Rel Index Total Protein Albumin TSH Urine WBC (Auto) Salicylates 04/09/17 04/09/17 04/09/17 06:19 15:30 21:52 WBC RBC Hgb Hct MCV MCH RDW Plt Count Lymph % (Auto) [place] % (Auto) Eos % (Auto) Seg Neutrophils % Seg Neuts % (Manual) Lymphocytes % (Manual) Seg Neutrophils # Seg Neutrophils # Man Lymphocytes # (Manual) APTT POC ABG pH ABG pH POC ABG pCO2 POC ABG pO2 ABG pO2 ABG HCO3 ABG Base Excess ABG Hemoglobin VBG pH Oxyhemoglobin Sodium Potassium Chloride Carbon Dioxide BUN Creatinine Glucose POC Glucose 340 H 332 H 341 H Lactic Acid Calcium AST ALT Alkaline Phosphatase CK-MB (CK-2) CK-MB (CK-2) Rel Index Total Protein Albumin TSH Urine WBC (Auto) Salicylates 04/10/17 04/10/17 04/10/17 01:53 05:33 17:40 WBC RBC Hgb Hct MCV MCH RDW Plt Count Lymph % (Auto) [place] % (Auto) Eos % (Auto) Seg Neutrophils % Seg Neuts % (Manual) Lymphocytes % (Manual) Seg Neutrophils # Seg Neutrophils # Man Lymphocytes # (Manual) APTT POC ABG pH ABG pH POC ABG pCO2 POC ABG pO2 ABG pO2 ABG HCO3 ABG Base Excess ABG Hemoglobin VBG pH Oxyhemoglobin Sodium Potassium Chloride Carbon Dioxide BUN Creatinine Glucose POC Glucose 261 H 277 H 304 H Lactic Acid Calcium AST ALT Alkaline Phosphatase CK-MB (CK-2) CK-MB (CK-2) Rel Index Total Protein Albumin TSH Urine WBC (Auto) Salicylates 04/10/17 04/11/17 04/11/17 21:29 05:28 14:02 WBC RBC Hgb Hct MCV MCH RDW Plt Count Lymph % (Auto) [place] % (Auto) Eos % (Auto) Seg Neutrophils % Seg Neuts % (Manual) Lymphocytes % (Manual) Seg Neutrophils # Seg Neutrophils # Man Lymphocytes # (Manual) APTT POC ABG pH ABG pH POC ABG pCO2 POC ABG pO2 ABG pO2 ABG HCO3 ABG Base Excess ABG Hemoglobin VBG pH Oxyhemoglobin Sodium Potassium Chloride Carbon Dioxide BUN Creatinine Glucose POC Glucose 361 H 204 H 236 H Lactic Acid Calcium AST ALT Alkaline Phosphatase CK-MB (CK-2) CK-MB (CK-2) Rel Index Total Protein Albumin TSH Urine WBC (Auto) Salicylates 04/11/17 04/12/17 04/12/17 21:43 05:00 11:53 WBC RBC Hgb Hct MCV MCH RDW Plt Count Lymph % (Auto) [place] % (Auto) Eos % (Auto) Seg Neutrophils % Seg Neuts % (Manual) Lymphocytes % (Manual) Seg Neutrophils # Seg Neutrophils # Man Lymphocytes # (Manual) APTT POC ABG pH ABG pH POC ABG pCO2 POC ABG pO2 ABG pO2 ABG HCO3 ABG Base Excess ABG Hemoglobin VBG pH Oxyhemoglobin Sodium Potassium Chloride Carbon Dioxide BUN Creatinine Glucose POC Glucose 287 H 294 H 265 H Lactic Acid Calcium AST ALT Alkaline Phosphatase CK-MB (CK-2) CK-MB (CK-2) Rel Index Total Protein Albumin TSH Urine WBC (Auto) Salicylates 04/12/17 04/12/17 04/13/17 21:21 23:44 06:05 WBC RBC Hgb Hct MCV MCH RDW Plt Count Lymph % (Auto) [place] % (Auto) Eos % (Auto) Seg Neutrophils % Seg Neuts % (Manual) Lymphocytes % (Manual) Seg Neutrophils # Seg Neutrophils # Man Lymphocytes # (Manual) APTT POC ABG pH ABG pH POC ABG pCO2 POC ABG pO2 ABG pO2 ABG HCO3 ABG Base Excess ABG Hemoglobin VBG pH Oxyhemoglobin Sodium Potassium Chloride Carbon Dioxide BUN Creatinine Glucose POC Glucose 289 H 348 H 326 H Lactic Acid Calcium AST ALT Alkaline Phosphatase CK-MB (CK-2) CK-MB (CK-2) Rel Index Total Protein Albumin TSH Urine WBC (Auto) Salicylates 04/13/17 04/13/17 04/14/17 13:54 21:15 05:49 WBC RBC Hgb Hct MCV MCH RDW Plt Count Lymph % (Auto) [place] % (Auto) Eos % (Auto) Seg Neutrophils % Seg Neuts % (Manual) Lymphocytes % (Manual) Seg Neutrophils # Seg Neutrophils # Man Lymphocytes # (Manual) APTT POC ABG pH ABG pH POC ABG pCO2 POC ABG pO2 ABG pO2 ABG HCO3 ABG Base Excess ABG Hemoglobin VBG pH Oxyhemoglobin Sodium Potassium Chloride Carbon Dioxide BUN Creatinine Glucose POC Glucose 326 H 263 H 319 H Lactic Acid Calcium AST ALT Alkaline Phosphatase CK-MB (CK-2) CK-MB (CK-2) Rel Index Total Protein Albumin TSH Urine WBC (Auto) Salicylates 04/14/17 04/14/17 04/15/17 13:26 23:13 14:24 WBC RBC Hgb Hct MCV MCH RDW Plt Count Lymph % (Auto) [place] % (Auto) Eos % (Auto) Seg Neutrophils % Seg Neuts % (Manual) Lymphocytes % (Manual) Seg Neutrophils # Seg Neutrophils # Man Lymphocytes # (Manual) APTT POC ABG pH ABG pH POC ABG pCO2 POC ABG pO2 ABG pO2 ABG HCO3 ABG Base Excess ABG Hemoglobin VBG pH Oxyhemoglobin Sodium Potassium Chloride Carbon Dioxide BUN Creatinine Glucose POC Glucose 207 H 365 H 308 H Lactic Acid Calcium AST ALT Alkaline Phosphatase CK-MB (CK-2) CK-MB (CK-2) Rel Index Total Protein Albumin TSH Urine WBC (Auto) Salicylates 04/15/17 04/15/17 04/15/17 21:00 22:18 23:12 WBC RBC Hgb Hct MCV MCH RDW Plt Count Lymph % (Auto) [place] % (Auto) Eos % (Auto) Seg Neutrophils % Seg Neuts % (Manual) Lymphocytes % (Manual) Seg Neutrophils # Seg Neutrophils # Man Lymphocytes # (Manual) APTT POC ABG pH ABG pH POC ABG pCO2 POC ABG pO2 ABG pO2 ABG HCO3 ABG Base Excess ABG Hemoglobin VBG pH Oxyhemoglobin Sodium Potassium Chloride Carbon Dioxide BUN Creatinine Glucose POC Glucose 407 H 287 H 325 H Lactic Acid Calcium AST ALT Alkaline Phosphatase CK-MB (CK-2) CK-MB (CK-2) Rel Index Total Protein Albumin TSH Urine WBC (Auto) Salicylates 04/16/17 04/16/17 04/16/17 05:30 10:07 14:26 WBC RBC Hgb Hct MCV MCH RDW Plt Count Lymph % (Auto) [place] % (Auto) Eos % (Auto) Seg Neutrophils % Seg Neuts % (Manual) Lymphocytes % (Manual) Seg Neutrophils # Seg Neutrophils # Man Lymphocytes # (Manual) APTT POC ABG pH ABG pH POC ABG pCO2 POC ABG pO2 ABG pO2 ABG HCO3 ABG Base Excess ABG Hemoglobin VBG pH Oxyhemoglobin Sodium Potassium Chloride Carbon Dioxide BUN Creatinine Glucose POC Glucose 304 H 217 H 344 H Lactic Acid Calcium AST ALT Alkaline Phosphatase CK-MB (CK-2) CK-MB (CK-2) Rel Index Total Protein Albumin TSH Urine WBC (Auto) Salicylates 04/16/17 04/17/17 04/17/17 21:25 05:12 14:19 WBC RBC Hgb Hct MCV MCH RDW Plt Count Lymph % (Auto) [place] % (Auto) Eos % (Auto) Seg Neutrophils % Seg Neuts % (Manual) Lymphocytes % (Manual) Seg Neutrophils # Seg Neutrophils # Man Lymphocytes # (Manual) APTT POC ABG pH ABG pH POC ABG pCO2 POC ABG pO2 ABG pO2 ABG HCO3 ABG Base Excess ABG Hemoglobin VBG pH Oxyhemoglobin Sodium Potassium Chloride Carbon Dioxide BUN Creatinine Glucose POC Glucose 305 H 233 H 324 H Lactic Acid Calcium AST ALT Alkaline Phosphatase CK-MB (CK-2) CK-MB (CK-2) Rel Index Total Protein Albumin TSH Urine WBC (Auto) Salicylates 04/17/17 04/18/17 04/18/17 21:42 06:21 14:08 WBC RBC Hgb Hct MCV MCH RDW Plt Count Lymph % (Auto) [place] % (Auto) Eos % (Auto) Seg Neutrophils % Seg Neuts % (Manual) Lymphocytes % (Manual) Seg Neutrophils # Seg Neutrophils # Man Lymphocytes # (Manual) APTT POC ABG pH ABG pH POC ABG pCO2 POC ABG pO2 ABG pO2 ABG HCO3 ABG Base Excess ABG Hemoglobin VBG pH Oxyhemoglobin Sodium Potassium Chloride Carbon Dioxide BUN Creatinine Glucose POC Glucose 270 H 308 H 290 H Lactic Acid Calcium AST ALT Alkaline Phosphatase CK-MB (CK-2) CK-MB (CK-2) Rel Index Total Protein Albumin TSH Urine WBC (Auto) Salicylates 04/18/17 04/19/17 04/19/17 21:50 05:20 13:59 WBC RBC Hgb Hct MCV MCH RDW Plt Count Lymph % (Auto) [place] % (Auto) Eos % (Auto) Seg Neutrophils % Seg Neuts % (Manual) Lymphocytes % (Manual) Seg Neutrophils # Seg Neutrophils # Man Lymphocytes # (Manual) APTT POC ABG pH ABG pH POC ABG pCO2 POC ABG pO2 ABG pO2 ABG HCO3 ABG Base Excess ABG Hemoglobin VBG pH Oxyhemoglobin Sodium Potassium Chloride Carbon Dioxide BUN Creatinine Glucose POC Glucose 167 H 372 H 321 H Lactic Acid Calcium AST ALT Alkaline Phosphatase CK-MB (CK-2) CK-MB (CK-2) Rel Index Total Protein Albumin TSH Urine WBC (Auto) Salicylates 04/19/17 04/20/17 04/20/17 21:16 14:18 21:34 WBC RBC Hgb Hct MCV MCH RDW Plt Count Lymph % (Auto) [place] % (Auto) Eos % (Auto) Seg Neutrophils % Seg Neuts % (Manual) Lymphocytes % (Manual) Seg Neutrophils # Seg Neutrophils # Man Lymphocytes # (Manual) APTT POC ABG pH ABG pH POC ABG pCO2 POC ABG pO2 ABG pO2 ABG HCO3 ABG Base Excess ABG Hemoglobin VBG pH Oxyhemoglobin Sodium Potassium Chloride Carbon Dioxide BUN Creatinine Glucose POC Glucose 182 H 218 H 121 H Lactic Acid Calcium AST ALT Alkaline Phosphatase CK-MB (CK-2) CK-MB (CK-2) Rel Index Total Protein Albumin TSH Urine WBC (Auto) Salicylates 04/21/17 04/21/17 04/21/17 00:08 05:16 12:41 WBC RBC Hgb Hct MCV MCH RDW Plt Count Lymph % (Auto) [place] % (Auto) Eos % (Auto) Seg Neutrophils % Seg Neuts % (Manual) Lymphocytes % (Manual) Seg Neutrophils # Seg Neutrophils # Man Lymphocytes # (Manual) APTT POC ABG pH ABG pH POC ABG pCO2 POC ABG pO2 ABG pO2 ABG HCO3 ABG Base Excess ABG Hemoglobin VBG pH Oxyhemoglobin Sodium Potassium Chloride Carbon Dioxide BUN Creatinine Glucose POC Glucose 128 H 120 H 216 H Lactic Acid Calcium AST ALT Alkaline Phosphatase CK-MB (CK-2) CK-MB (CK-2) Rel Index Total Protein Albumin TSH Urine WBC (Auto) Salicylates 04/21/17 04/22/17 04/22/17 23:40 14:12 23:38 WBC RBC Hgb Hct MCV MCH RDW Plt Count Lymph % (Auto) [place] % (Auto) Eos % (Auto) Seg Neutrophils % Seg Neuts % (Manual) Lymphocytes % (Manual) Seg Neutrophils # Seg Neutrophils # Man Lymphocytes # (Manual) APTT POC ABG pH ABG pH POC ABG pCO2 POC ABG pO2 ABG pO2 ABG HCO3 ABG Base Excess ABG Hemoglobin VBG pH Oxyhemoglobin Sodium Potassium Chloride Carbon Dioxide BUN Creatinine Glucose POC Glucose 157 H 242 H 117 H Lactic Acid Calcium AST ALT Alkaline Phosphatase CK-MB (CK-2) CK-MB (CK-2) Rel Index Total Protein Albumin TSH Urine WBC (Auto) Salicylates 04/23/17 04/23/17 05:18 14:01 WBC RBC Hgb Hct MCV MCH RDW Plt Count Lymph % (Auto) [place] % (Auto) Eos % (Auto) Seg Neutrophils % Seg Neuts % (Manual) Lymphocytes % (Manual) Seg Neutrophils # Seg Neutrophils # Man Lymphocytes # (Manual) APTT POC ABG pH ABG pH POC ABG pCO2 POC ABG pO2 ABG pO2 ABG HCO3 ABG Base Excess ABG Hemoglobin VBG pH Oxyhemoglobin Sodium Potassium Chloride Carbon Dioxide BUN Creatinine Glucose POC Glucose 163 H 57 L Lactic Acid Calcium AST ALT Alkaline Phosphatase CK-MB (CK-2) CK-MB (CK-2) Rel Index Total Protein Albumin TSH Urine WBC (Auto) Salicylates
[2017-04-24 04:42] LABS: Basophils # (Auto) 0.1 K/mm3 (0.0-0.1); Basophils % (Auto) 0.9 % (0.0-1.8); Eosinophils # (Auto) 0.2 K/mm3 (0.0-0.4); Hemoglobin 9.9 gm/dl (11.8-15.2); Lymphocytes # (Auto) 1.8 K/mm3 (1.2-5.4); Lymphocytes % (Auto) 21.8 % (13.4-35.0); Mean Corpuscular HGB Conc 33 % (32-34); Mean Corpuscular Volume 79 fl (84-94); Monocytes # (Auto) 0.7 K/mm3 (0.0-0.8); Monocytes % (Auto) 8.4 % (0.0-7.3); Platelet Count 625 K/mm3 (140-440); Red Blood Count 3.82 M/mm3 (3.65-5.03); Red Cell Distribution Width 17.1 % (13.2-15.2)
[2017-04-24 04:44] LABS: Mean Corpuscular Hemoglobin 26 pg (28-32)
[2017-04-24 05:09] LABS: Alanine Aminotransferase 42 units/L (7-56); Albumin 2.5 g/dL (3.9-5); BUN/Creatinine Ratio 67; Blood Urea Nitrogen 40 mg/dL (9-20); Calcium 9.5 mg/dL (8.4-10.2); Hemolysis Index 1
[2017-04-24] MEDS: SYNTHROID PO SCH (06:27)
[2017-04-24] MEDS: HumuLIN R SUB-Q SCH ×3 (06:31→23:48)
[2017-04-24] MEDS: PEPCID PO SCH ×2 (10:08→22:50)
[2017-04-24] MEDS: HEPARIN SUB-Q SCH ×2 (10:08→22:50)
[2017-04-24] MEDS: LEVEMIR (NF) SUB-Q SCH (10:08)
[2017-04-24] MEDS: IMODIUM A-D PO PRN ×2 (10:09→17:00)
--- NOTE | 2017-04-24 11:49 | Progress Note ---
Assessment and Plan 51 YO Male with CKD,HTN, DM presents to ED after found down and unresponsive by his neighbor, who subsequently called EMS. Upon arrival, patient found unresponsive on the floor with a serum glucose of 21, patient has a known history of alcohol abuse and delirium tremens. The patient was administered D5 approximate 500 mls during transport without change in mental status/level of consciousness. Pt seen and evaluated in ED was was found to be unable to protect his airway. Pt intubated and placed on vent support. Pt found to have evidence of hypothyroidism. 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 very poor prognosis - Metabolic encephalopathy: Supportive care - Hypoglycemia/hypothermia, resolved - Acute respiratory failure mechanical ventilator greater than 96 hours: wean as tolerated. Pulm. following - UTI with klebsiella, treated ( Cx + on 01/28), then with ESBL likely colonization - Hyponatremia: corrected - Hypothyroidism: On levothyroxine - IDDM : continue with SSI - Anemia of chronic disease. will Tend - Hypertension: Controlled - Cont supportive care and current medication. Monitor vitals, - Patient is DNR- needs guardianship from the state to give consent for further management, as has no family to give consent. We will check labs. Poor prognosis, Subjective Date of service: 04/24/17 Principal diagnosis: Acute respiratory failure,encephalopathy Interval history: Remains unresponsive. Consulted with patient's nurse. No overnight event reported to me by patient's nurse. Consultants as well as laboratory and radiological data reviewed Objective - Constitutional Vitals: Vital Signs - 12hr 04/24/17 04/24/17 04/24/17 00:00 02:00 03:45 Temperature Pulse Rate 74 74 76 Pulse Rate [ Left] Respiratory 14 15 Rate Blood Pressure 113/70 113/70 113/70 O2 Sat by Pulse 100 97 100 Oximetry 04/24/17 04/24/17 04/24/17 04:00 06:00 08:00 Temperature 97.9 F 98.7 F Pulse Rate 75 79 Pulse Rate [ 72 Left] Respiratory 15 13 Rate Blood Pressure 115/75 115/75 O2 Sat by Pulse 100 100 Oximetry 04/24/17 10:15 Temperature Pulse Rate 94 H Pulse Rate [ Left] Respiratory Rate Blood Pressure 110/75 O2 Sat by Pulse 99 Oximetry General appearance: Present: no acute distress, well-nourished - EENT Eyes: PERRL, EOM intact - Neck Neck: supple, normal ROM - Respiratory Respiratory effort: normal Respiratory: bilateral: CTA - Cardiovascular Rhythm: regular Heart Sounds: Present: S1 & S2. Absent: gallop, rub Extremities: pulses intact, No edema, normal color, Full ROM - Gastrointestinal General gastrointestinal: Present: soft, non-tender, non-distended, normal bowel sounds - Integumentary Integumentary: clear, warm, dry - Musculoskeletal Musculoskeletal: 1, strength equal bilaterally - Neurologic Neurologic: other (unresponsive) - Labs CBC & Chem 7: 04/24/17 04:00 04/24/17 04:00 Labs: Abnormal lab results 04/23/17 04/24/17 04/24/17 Range/Units 14:01 03:24 04:00 Hgb 9.9 L (11.8-15.2) gm/dl Hct 30.0 L (35.5-45.6) % MCV 79 L (84-94) fl MCH 26 L (28-32) pg RDW 17.1 H (13.2-15.2) % Plt Count 625 H (140-440) K/mm3 [place] % (Auto) 8.4 H (0.0-7.3) % Sodium (137-145) mmol/L Chloride (98-107) mmol/L BUN (9-20) mg/dL Creatinine (0.8-1.5) mg/dL Glucose (75-100) mg/dL POC Glucose 57 L 177 H (70-105) AST (5-40) units/L Alkaline Phosphatase (35-129) units/L Total Protein (6.3-8.2) g/dL Albumin (3.9-5) g/dL 04/24/17 04/24/17 Range/Units 04:00 06:33 Hgb (11.8-15.2) gm/dl Hct (35.5-45.6) % MCV (84-94) fl MCH (28-32) pg RDW (13.2-15.2) % Plt Count (140-440) K/mm3 [place] % (Auto) (0.0-7.3) % Sodium 136 L (137-145) mmol/L Chloride 94.9 L (98-107) mmol/L BUN 40 H (9-20) mg/dL Creatinine 0.6 L (0.8-1.5) mg/dL Glucose 176 H (75-100) mg/dL POC Glucose 230 H (70-105) AST 67 H (5-40) units/L Alkaline Phosphatase 294 H (35-129) units/L Total Protein 9.0 H (6.3-8.2) g/dL Albumin 2.5 L (3.9-5) g/dL
--- NOTE | 2017-04-24 17:37 | Progress Note ---
Assessment and Plan acute respiratory failure secondary to metabolic event, prolonged vent support Hypoglycemia/hypothermia -> suspect due to too much insulin Hypothyroidism; doubt myxedema coma with normal free T4 UTI/SIRS.Resolved Metabolic encephalopathy. Residual vegetative state,sever.No improvement Fever rule out sepsis Rec: Monitor fever, if persistent again, Update CXR Comfort care for now ,no changes, per chart/notes; waiting from administrative notification regarding assigning guardianship,care proxy Subjective Date of service: 04/24/17 Principal diagnosis: Acute respiratory failure,encephalopathy Interval history: No change remained unresponsive on mechanical ventilator fever up to 101 Objective Vital Signs - 12hr 04/24/17 04/24/17 04/24/17 06:00 08:00 10:15 Temperature 98.7 F Pulse Rate 79 94 H Respiratory 13 Rate Blood Pressure 115/75 110/75 O2 Sat by Pulse 100 99 Oximetry 04/24/17 04/24/17 04/24/17 11:56 14:18 14:37 Temperature 98.0 F Pulse Rate 98 H 98 H Respiratory 18 3 L Rate Blood Pressure 141/83 141/83 O2 Sat by Pulse 96 82 L Oximetry 04/24/17 04/24/17 15:33 16:38 Temperature 101.0 F H Pulse Rate 94 H Respiratory Rate Blood Pressure 104/65 O2 Sat by Pulse 98 Oximetry Constitutional: no acute distress, alert Eyes: non-icteric ENT: oropharynx moist, other (ETT in position) Neck: supple, no JVD Effort: normal Ascultation: Bilateral: clear, diminished breath sounds Cardiovascular: regular rate and rhythm (no mrg) Gastrointestinal: normoactive bowel sounds, soft, non-tender, non-distended Integumentary: normal Extremities: no cyanosis, no edema, pink and warm Neurologic: pupils equal and round, other (not following commands,mild response to pain) Psychiatric: other (unable to obtain) CBC and BMP: 04/24/17 04:00 04/24/17 04:00 ABG, PT/INR, D-dimer: ABG POC ABG pH 7.442 (7.35-7.45) 01/31/17 18:55 ABG pH 7.420 pH Units (7.350-7.450) 01/17/17 04:35 POC ABG pCO2 32.8 (35-45) L 01/31/17 18:55 ABG pCO2 34.5 mm Hg 01/17/17 04:35 POC ABG pO2 82 (80-105) 01/31/17 18:55 ABG pO2 160.3 mm Hg (80.0-90.0) H 01/17/17 04:35 POC ABG HCO3 22.4 01/31/17 18:55 POC ABG Total CO2 23 01/31/17 18:55 POC ABG O2 Sat 97 01/31/17 18:55 ABG O2 Saturation 99.0 % (95.0-99.0) 01/17/17 04:35 PT/INR, D-dimer PT 14.1 Sec. (12.2-14.9) 01/17/17 04:10 INR 1.04 (0.87-1.13) 01/17/17 04:10 Abnormal lab findings: Abnormal Labs 01/09/17 01/09/17 01/09/17 10:16 10:16 10:16 WBC RBC Hgb 9.7 L Hct 28.4 L MCV 76 L MCH 26 L RDW 17.2 H Plt Count 448 H Lymph % (Auto) Murray % (Auto) Eos % (Auto) Seg Neutrophils % 79.5 H Seg Neuts % (Manual) Lymphocytes % (Manual) Seg Neutrophils # Seg Neutrophils # Man Lymphocytes # (Manual) APTT 39.6 H POC ABG pH ABG pH POC ABG pCO2 POC ABG pO2 ABG pO2 ABG HCO3 ABG Base Excess ABG Hemoglobin VBG pH Oxyhemoglobin Sodium 132 L Potassium Chloride 96.7 L Carbon Dioxide 21 L BUN 34 H Creatinine Glucose POC Glucose Lactic Acid Calcium 8.3 L AST ALT Alkaline Phosphatase 151 H CK-MB (CK-2) 7.1 H CK-MB (CK-2) Rel Index 5.2 H Total Protein Albumin 3.3 L TSH Urine WBC (Auto) Salicylates 01/09/17 01/09/17 01/09/17 10:16 10:16 10:16 WBC RBC Hgb Hct MCV MCH RDW Plt Count Lymph % (Auto) Murray % (Auto) Eos % (Auto) Seg Neutrophils % Seg Neuts % (Manual) Lymphocytes % (Manual) Seg Neutrophils # Seg Neutrophils # Man Lymphocytes # (Manual) APTT POC ABG pH ABG pH POC ABG pCO2 POC ABG pO2 ABG pO2 ABG HCO3 ABG Base Excess ABG Hemoglobin VBG pH 7.284 L Oxyhemoglobin Sodium Potassium Chloride Carbon Dioxide BUN Creatinine Glucose POC Glucose Lactic Acid Calcium AST ALT Alkaline Phosphatase CK-MB (CK-2) CK-MB (CK-2) Rel Index Total Protein Albumin TSH 52.800 H Urine WBC (Auto) Salicylates < 0.3 L 01/09/17 01/09/17 01/09/17 10:23 11:14 12:49 WBC RBC Hgb Hct MCV MCH RDW Plt Count Lymph % (Auto) Murray % (Auto) Eos % (Auto) Seg Neutrophils % Seg Neuts % (Manual) Lymphocytes % (Manual) Seg Neutrophils # Seg Neutrophils # Man Lymphocytes # (Manual) APTT POC ABG pH ABG pH POC ABG pCO2 POC ABG pO2 643 H ABG pO2 ABG HCO3 ABG Base Excess ABG Hemoglobin VBG pH Oxyhemoglobin Sodium Potassium Chloride Carbon Dioxide BUN Creatinine Glucose POC Glucose < 40 L Lactic Acid Calcium AST ALT Alkaline Phosphatase CK-MB (CK-2) CK-MB (CK-2) Rel Index Total Protein Albumin TSH Urine WBC (Auto) 61.0 H Salicylates 01/09/17 01/09/17 01/09/17 13:13 14:21 15:09 WBC RBC Hgb Hct MCV MCH RDW Plt Count Lymph % (Auto) Murray % (Auto) Eos % (Auto) Seg Neutrophils % Seg Neuts % (Manual) Lymphocytes % (Manual) Seg Neutrophils # Seg Neutrophils # Man Lymphocytes # (Manual) APTT POC ABG pH ABG pH POC ABG pCO2 POC ABG pO2 ABG pO2 ABG HCO3 ABG Base Excess ABG Hemoglobin VBG pH Oxyhemoglobin Sodium Potassium Chloride Carbon Dioxide BUN Creatinine Glucose POC Glucose 128 H 65 L 120 H Lactic Acid Calcium AST ALT Alkaline Phosphatase CK-MB (CK-2) CK-MB (CK-2) Rel Index Total Protein Albumin TSH Urine WBC (Auto) Salicylates 01/09/17 01/09/17 01/10/17 16:28 17:14 04:30 WBC 24.1 H RBC 3.38 L Hgb 8.5 L Hct 26.0 L MCV 77 L MCH 25 L RDW 17.9 H Plt Count 474 H Lymph % (Auto) Murray % (Auto) Eos % (Auto) Seg Neutrophils % Seg Neuts % (Manual) 88.0 H Lymphocytes % (Manual) 4.0 L Seg Neutrophils # Seg Neutrophils # Man 21.2 H Lymphocytes # (Manual) 1.0 L APTT POC ABG pH ABG pH POC ABG pCO2 POC ABG pO2 ABG pO2 ABG HCO3 ABG Base Excess ABG Hemoglobin VBG pH Oxyhemoglobin Sodium Potassium Chloride Carbon Dioxide BUN Creatinine Glucose POC Glucose 44 L 112 H Lactic Acid Calcium AST ALT Alkaline Phosphatase CK-MB (CK-2) CK-MB (CK-2) Rel Index Total Protein Albumin TSH Urine WBC (Auto) Salicylates 01/10/17 01/10/17 01/10/17 04:30 05:41 05:45 WBC RBC Hgb Hct MCV MCH RDW Plt Count Lymph % (Auto) Murray % (Auto) Eos % (Auto) Seg Neutrophils % Seg Neuts % (Manual) Lymphocytes % (Manual) Seg Neutrophils # Seg Neutrophils # Man Lymphocytes # (Manual) APTT POC ABG pH ABG pH POC ABG pCO2 26.6 L POC ABG pO2 207 H ABG pO2 ABG HCO3 ABG Base Excess ABG Hemoglobin VBG pH Oxyhemoglobin Sodium Potassium Chloride Carbon Dioxide 17 L BUN 27 H Creatinine Glucose POC Glucose 68 L Lactic Acid Calcium 7.5 L AST ALT Alkaline Phosphatase CK-MB (CK-2) CK-MB (CK-2) Rel Index Total Protein Albumin TSH Urine WBC (Auto) Salicylates 01/10/17 01/10/17 01/10/17 07:47 10:50 13:41 WBC RBC Hgb Hct MCV MCH RDW Plt Count Lymph % (Auto) Murray % (Auto) Eos % (Auto) Seg Neutrophils % Seg Neuts % (Manual) Lymphocytes % (Manual) Seg Neutrophils # Seg Neutrophils # Man Lymphocytes # (Manual) APTT POC ABG pH ABG pH POC ABG pCO2 POC ABG pO2 ABG pO2 ABG HCO3 ABG Base Excess ABG Hemoglobin VBG pH Oxyhemoglobin Sodium Potassium Chloride Carbon Dioxide BUN Creatinine Glucose POC Glucose 148 H 165 H 114 H Lactic Acid Calcium AST ALT Alkaline Phosphatase CK-MB (CK-2) CK-MB (CK-2) Rel Index Total Protein Albumin TSH Urine WBC (Auto) Salicylates 01/10/17 01/10/17 01/10/17 20:20 21:39 23:24 WBC RBC Hgb Hct MCV MCH RDW Plt Count Lymph % (Auto) Murray % (Auto) Eos % (Auto) Seg Neutrophils % Seg Neuts % (Manual) Lymphocytes % (Manual) Seg Neutrophils # Seg Neutrophils # Man Lymphocytes # (Manual) APTT POC ABG pH ABG pH POC ABG pCO2 POC ABG pO2 ABG pO2 ABG HCO3 ABG Base Excess ABG Hemoglobin VBG pH Oxyhemoglobin Sodium Potassium Chloride Carbon Dioxide BUN Creatinine Glucose POC Glucose 150 H 175 H 155 H Lactic Acid Calcium AST ALT Alkaline Phosphatase CK-MB (CK-2) CK-MB (CK-2) Rel Index Total Protein Albumin TSH Urine WBC (Auto) Salicylates 01/11/17 01/11/17 01/11/17 00:19 04:06 05:20 WBC 15.2 H RBC 3.40 L Hgb 8.9 L Hct 26.3 L MCV 78 L MCH 26 L RDW 18.6 H Plt Count 462 H Lymph % (Auto) 13.2 L Murray % (Auto) Eos % (Auto) Seg Neutrophils % 80.8 H Seg Neuts % (Manual) Lymphocytes % (Manual) Seg Neutrophils # 12.3 H Seg Neutrophils # Man Lymphocytes # (Manual) APTT POC ABG pH 7.463 H ABG pH POC ABG pCO2 26.2 L POC ABG pO2 185 H ABG pO2 ABG HCO3 ABG Base Excess ABG Hemoglobin VBG pH Oxyhemoglobin Sodium Potassium Chloride Carbon Dioxide BUN Creatinine Glucose POC Glucose 163 H Lactic Acid Calcium AST ALT Alkaline Phosphatase CK-MB (CK-2) CK-MB (CK-2) Rel Index Total Protein Albumin TSH Urine WBC (Auto) Salicylates 01/11/17 01/11/17 01/11/17 05:20 06:21 07:57 WBC RBC Hgb Hct MCV MCH RDW Plt Count Lymph % (Auto) Murray % (Auto) Eos % (Auto) Seg Neutrophils % Seg Neuts % (Manual) Lymphocytes % (Manual) Seg Neutrophils # Seg Neutrophils # Man Lymphocytes # (Manual) APTT POC ABG pH ABG pH POC ABG pCO2 POC ABG pO2 ABG pO2 ABG HCO3 ABG Base Excess ABG Hemoglobin VBG pH Oxyhemoglobin Sodium Potassium 3.4 L Chloride 111.5 H Carbon Dioxide 17 L BUN Creatinine Glucose 147 H POC Glucose 139 H 188 H Lactic Acid Calcium 8.0 L AST ALT Alkaline Phosphatase CK-MB (CK-2) CK-MB (CK-2) Rel Index Total Protein Albumin TSH Urine WBC (Auto) Salicylates 01/11/17 01/11/17 01/11/17 11:46 16:50 23:15 WBC RBC Hgb Hct MCV MCH RDW Plt Count Lymph % (Auto) Murray % (Auto) Eos % (Auto) Seg Neutrophils % Seg Neuts % (Manual) Lymphocytes % (Manual) Seg Neutrophils # Seg Neutrophils # Man Lymphocytes # (Manual) APTT POC ABG pH ABG pH POC ABG pCO2 POC ABG pO2 ABG pO2 ABG HCO3 ABG Base Excess ABG Hemoglobin VBG pH Oxyhemoglobin Sodium Potassium Chloride Carbon Dioxide BUN Creatinine Glucose POC Glucose 199 H 235 H 155 H Lactic Acid Calcium AST ALT Alkaline Phosphatase CK-MB (CK-2) CK-MB (CK-2) Rel Index Total Protein Albumin TSH Urine WBC (Auto) Salicylates 01/12/17 01/12/17 01/12/17 05:02 06:56 14:50 WBC RBC Hgb Hct MCV MCH RDW Plt Count Lymph % (Auto) Murray % (Auto) Eos % (Auto) Seg Neutrophils % Seg Neuts % (Manual) Lymphocytes % (Manual) Seg Neutrophils # Seg Neutrophils # Man Lymphocytes # (Manual) APTT POC ABG pH ABG pH POC ABG pCO2 28.0 L POC ABG pO2 178 H ABG pO2 ABG HCO3 ABG Base Excess ABG Hemoglobin VBG pH Oxyhemoglobin Sodium Potassium Chloride Carbon Dioxide BUN Creatinine Glucose POC Glucose 119 H 164 H Lactic Acid Calcium AST ALT Alkaline Phosphatase CK-MB (CK-2) CK-MB (CK-2) Rel Index Total Protein Albumin TSH Urine WBC (Auto) Salicylates 01/13/17 01/13/17 01/13/17 03:37 03:37 04:26 WBC RBC 3.61 L Hgb 9.3 L Hct 28.0 L MCV 78 L MCH 26 L RDW 18.2 H Plt Count Lymph % (Auto) Murray % (Auto) Eos % (Auto) Seg Neutrophils % Seg Neuts % (Manual) Lymphocytes % (Manual) Seg Neutrophils # Seg Neutrophils # Man Lymphocytes # (Manual) APTT POC ABG pH 7.485 H ABG pH POC ABG pCO2 25.4 L POC ABG pO2 73 L ABG pO2 ABG HCO3 ABG Base Excess ABG Hemoglobin VBG pH Oxyhemoglobin Sodium Potassium Chloride 112.4 H Carbon Dioxide 19 L BUN Creatinine Glucose 118 H POC Glucose Lactic Acid Calcium 8.0 L AST ALT Alkaline Phosphatase CK-MB (CK-2) CK-MB (CK-2) Rel Index Total Protein Albumin TSH Urine WBC (Auto) Salicylates 01/13/17 01/13/17 01/13/17 06:15 11:50 17:31 WBC RBC Hgb Hct MCV MCH RDW Plt Count Lymph % (Auto) Murray % (Auto) Eos % (Auto) Seg Neutrophils % Seg Neuts % (Manual) Lymphocytes % (Manual) Seg Neutrophils # Seg Neutrophils # Man Lymphocytes # (Manual) APTT POC ABG pH ABG pH POC ABG pCO2 POC ABG pO2 ABG pO2 ABG HCO3 ABG Base Excess ABG Hemoglobin VBG pH Oxyhemoglobin Sodium Potassium Chloride Carbon Dioxide BUN Creatinine Glucose POC Glucose 116 H 171 H 203 H Lactic Acid Calcium AST ALT Alkaline Phosphatase CK-MB (CK-2) CK-MB (CK-2) Rel Index Total Protein Albumin TSH Urine WBC (Auto) Salicylates 01/14/17 01/14/17 01/14/17 00:02 04:50 04:50 WBC RBC 3.32 L Hgb 8.5 L Hct 26.1 L MCV 79 L MCH 26 L RDW 18.2 H Plt Count Lymph % (Auto) Murray % (Auto) 9.0 H Eos % (Auto) Seg Neutrophils % Seg Neuts % (Manual) Lymphocytes % (Manual) Seg Neutrophils # Seg Neutrophils # Man Lymphocytes # (Manual) APTT POC ABG pH ABG pH POC ABG pCO2 POC ABG pO2 ABG pO2 ABG HCO3 ABG Base Excess ABG Hemoglobin VBG pH Oxyhemoglobin Sodium Potassium Chloride 112.5 H Carbon Dioxide BUN Creatinine Glucose 149 H POC Glucose 157 H Lactic Acid Calcium 8.1 L AST ALT Alkaline Phosphatase CK-MB (CK-2) CK-MB (CK-2) Rel Index Total Protein Albumin TSH Urine WBC (Auto) Salicylates 01/14/17 01/14/17 01/14/17 05:10 11:27 14:07 WBC RBC Hgb Hct MCV MCH RDW Plt Count Lymph % (Auto) Murray % (Auto) Eos % (Auto) Seg Neutrophils % Seg Neuts % (Manual) Lymphocytes % (Manual) Seg Neutrophils # Seg Neutrophils # Man Lymphocytes # (Manual) APTT POC ABG pH ABG pH POC ABG pCO2 POC ABG pO2 ABG pO2 ABG HCO3 ABG Base Excess ABG Hemoglobin VBG pH Oxyhemoglobin Sodium Potassium Chloride Carbon Dioxide BUN Creatinine Glucose POC Glucose 176 H 147 H Lactic Acid Calcium AST ALT Alkaline Phosphatase CK-MB (CK-2) CK-MB (CK-2) Rel Index Total Protein Albumin TSH Urine WBC (Auto) 53.0 H Salicylates 01/14/17 01/15/17 01/15/17 16:52 00:04 05:26 WBC RBC Hgb Hct MCV MCH RDW Plt Count Lymph % (Auto) Murray % (Auto) Eos % (Auto) Seg Neutrophils % Seg Neuts % (Manual) Lymphocytes % (Manual) Seg Neutrophils # Seg Neutrophils # Man Lymphocytes # (Manual) APTT POC ABG pH ABG pH POC ABG pCO2 POC ABG pO2 ABG pO2 ABG HCO3 ABG Base Excess ABG Hemoglobin VBG pH Oxyhemoglobin Sodium Potassium Chloride Carbon Dioxide BUN Creatinine Glucose POC Glucose 131 H 193 H 215 H Lactic Acid Calcium AST ALT Alkaline Phosphatase CK-MB (CK-2) CK-MB (CK-2) Rel Index Total Protein Albumin TSH Urine WBC (Auto) Salicylates 01/15/17 01/15/17 01/15/17 11:49 17:47 21:33 WBC RBC Hgb Hct MCV MCH RDW Plt Count Lymph % (Auto) Murray % (Auto) Eos % (Auto) Seg Neutrophils % Seg Neuts % (Manual) Lymphocytes % (Manual) Seg Neutrophils # Seg Neutrophils # Man Lymphocytes # (Manual) APTT POC ABG pH ABG pH POC ABG pCO2 POC ABG pO2 ABG pO2 ABG HCO3 ABG Base Excess ABG Hemoglobin VBG pH Oxyhemoglobin Sodium Potassium Chloride Carbon Dioxide BUN Creatinine Glucose POC Glucose 121 H 211 H 275 H Lactic Acid Calcium AST ALT Alkaline Phosphatase CK-MB (CK-2) CK-MB (CK-2) Rel Index Total Protein Albumin TSH Urine WBC (Auto) Salicylates 01/16/17 01/16/17 01/16/17 04:30 05:28 13:45 WBC RBC Hgb Hct MCV MCH RDW Plt Count Lymph % (Auto) Murray % (Auto) Eos % (Auto) Seg Neutrophils % Seg Neuts % (Manual) Lymphocytes % (Manual) Seg Neutrophils # Seg Neutrophils # Man Lymphocytes # (Manual) APTT POC ABG pH ABG pH 7.457 H POC ABG pCO2 POC ABG pO2 ABG pO2 55.1 L ABG HCO3 19.4 L ABG Base Excess -4.0 L ABG Hemoglobin 6.8 L VBG pH Oxyhemoglobin 94.9 L Sodium Potassium Chloride Carbon Dioxide BUN Creatinine Glucose POC Glucose 271 H 236 H Lactic Acid Calcium AST ALT Alkaline Phosphatase CK-MB (CK-2) CK-MB (CK-2) Rel Index Total Protein Albumin TSH Urine WBC (Auto) Salicylates 01/16/17 01/17/17 01/17/17 21:39 04:10 04:10 WBC 4.4 L RBC 2.98 L Hgb 7.7 L Hct 23.3 L MCV 78 L MCH 26 L RDW 18.1 H Plt Count Lymph % (Auto) Murray % (Auto) Eos % (Auto) Seg Neutrophils % Seg Neuts % (Manual) Lymphocytes % (Manual) Seg Neutrophils # Seg Neutrophils # Man Lymphocytes # (Manual) APTT POC ABG pH ABG pH POC ABG pCO2 POC ABG pO2 ABG pO2 ABG HCO3 ABG Base Excess ABG Hemoglobin VBG pH Oxyhemoglobin Sodium Potassium 3.3 L Chloride 108.7 H Carbon Dioxide 20 L BUN 8 L Creatinine Glucose 202 H POC Glucose 258 H Lactic Acid Calcium 7.6 L AST ALT Alkaline Phosphatase CK-MB (CK-2) CK-MB (CK-2) Rel Index Total Protein Albumin TSH Urine WBC (Auto) Salicylates 01/17/17 01/17/17 01/17/17 04:35 12:23 16:01 WBC RBC Hgb Hct MCV MCH RDW Plt Count Lymph % (Auto) Murray % (Auto) Eos % (Auto) Seg Neutrophils % Seg Neuts % (Manual) Lymphocytes % (Manual) Seg Neutrophils # Seg Neutrophils # Man Lymphocytes # (Manual) APTT POC ABG pH ABG pH POC ABG pCO2 POC ABG pO2 ABG pO2 160.3 H ABG HCO3 ABG Base Excess -2.3 L ABG Hemoglobin 7.9 L VBG pH Oxyhemoglobin Sodium Potassium Chloride Carbon Dioxide BUN Creatinine Glucose POC Glucose 321 H 239 H Lactic Acid Calcium AST ALT Alkaline Phosphatase CK-MB (CK-2) CK-MB (CK-2) Rel Index Total Protein Albumin TSH Urine WBC (Auto) Salicylates 01/18/17 01/18/17 01/18/17 05:07 12:09 17:54 WBC RBC Hgb Hct MCV MCH RDW Plt Count Lymph % (Auto) Murray % (Auto) Eos % (Auto) Seg Neutrophils % Seg Neuts % (Manual) Lymphocytes % (Manual) Seg Neutrophils # Seg Neutrophils # Man Lymphocytes # (Manual) APTT POC ABG pH ABG pH POC ABG pCO2 POC ABG pO2 ABG pO2 ABG HCO3 ABG Base Excess ABG Hemoglobin VBG pH Oxyhemoglobin Sodium Potassium Chloride Carbon Dioxide BUN Creatinine Glucose POC Glucose 155 H 203 H 132 H Lactic Acid Calcium AST ALT Alkaline Phosphatase CK-MB (CK-2) CK-MB (CK-2) Rel Index Total Protein Albumin TSH Urine WBC (Auto) Salicylates 01/18/17 01/19/17 01/19/17 23:43 04:28 12:11 WBC RBC Hgb Hct MCV MCH RDW Plt Count Lymph % (Auto) Murray % (Auto) Eos % (Auto) Seg Neutrophils % Seg Neuts % (Manual) Lymphocytes % (Manual) Seg Neutrophils # Seg Neutrophils # Man Lymphocytes # (Manual) APTT POC ABG pH ABG pH POC ABG pCO2 POC ABG pO2 ABG pO2 ABG HCO3 ABG Base Excess ABG Hemoglobin VBG pH Oxyhemoglobin Sodium Potassium Chloride Carbon Dioxide BUN Creatinine Glucose POC Glucose 125 H 182 H 153 H Lactic Acid Calcium AST ALT Alkaline Phosphatase CK-MB (CK-2) CK-MB (CK-2) Rel Index Total Protein Albumin TSH Urine WBC (Auto) Salicylates 01/19/17 01/20/17 01/20/17 17:23 00:12 05:44 WBC RBC Hgb Hct MCV MCH RDW Plt Count Lymph % (Auto) Murray % (Auto) Eos % (Auto) Seg Neutrophils % Seg Neuts % (Manual) Lymphocytes % (Manual) Seg Neutrophils # Seg Neutrophils # Man Lymphocytes # (Manual) APTT POC ABG pH ABG pH POC ABG pCO2 POC ABG pO2 ABG pO2 ABG HCO3 ABG Base Excess ABG Hemoglobin VBG pH Oxyhemoglobin Sodium Potassium Chloride Carbon Dioxide BUN Creatinine Glucose POC Glucose 66 L 139 H 176 H Lactic Acid Calcium AST ALT Alkaline Phosphatase CK-MB (CK-2) CK-MB (CK-2) Rel Index Total Protein Albumin TSH Urine WBC (Auto) Salicylates 10/12/17 10/12/17 10/12/17 11:48 17:42 23:43 WBC RBC Hgb Hct MCV MCH RDW Plt Count Lymph % (Auto) Murray % (Auto) Eos % (Auto) Seg Neutrophils % Seg Neuts % (Manual) Lymphocytes % (Manual) Seg Neutrophils # Seg Neutrophils # Man Lymphocytes # (Manual) APTT POC ABG pH ABG pH POC ABG pCO2 POC ABG pO2 ABG pO2 ABG HCO3 ABG Base Excess ABG Hemoglobin VBG pH Oxyhemoglobin Sodium Potassium Chloride Carbon Dioxide BUN Creatinine Glucose POC Glucose 218 H 132 H 178 H Lactic Acid Calcium AST ALT Alkaline Phosphatase CK-MB (CK-2) CK-MB (CK-2) Rel Index Total Protein Albumin TSH Urine WBC (Auto) Salicylates 01/21/17 01/21/17 01/21/17 05:34 11:17 23:37 WBC RBC Hgb Hct MCV MCH RDW Plt Count Lymph % (Auto) Murray % (Auto) Eos % (Auto) Seg Neutrophils % Seg Neuts % (Manual) Lymphocytes % (Manual) Seg Neutrophils # Seg Neutrophils # Man Lymphocytes # (Manual) APTT POC ABG pH ABG pH POC ABG pCO2 POC ABG pO2 ABG pO2 ABG HCO3 ABG Base Excess ABG Hemoglobin VBG pH Oxyhemoglobin Sodium Potassium Chloride Carbon Dioxide BUN Creatinine Glucose POC Glucose 106 H 213 H 140 H Lactic Acid Calcium AST ALT Alkaline Phosphatase CK-MB (CK-2) CK-MB (CK-2) Rel Index Total Protein Albumin TSH Urine WBC (Auto) Salicylates 01/22/17 01/22/17 01/22/17 04:00 04:00 04:58 WBC RBC 3.26 L Hgb 8.3 L Hct 25.5 L MCV 78 L MCH 25 L RDW 17.9 H Plt Count Lymph % (Auto) Murray % (Auto) 7.9 H Eos % (Auto) 6.2 H Seg Neutrophils % Seg Neuts % (Manual) Lymphocytes % (Manual) Seg Neutrophils # Seg Neutrophils # Man Lymphocytes # (Manual) APTT POC ABG pH ABG pH POC ABG pCO2 POC ABG pO2 ABG pO2 ABG HCO3 ABG Base Excess ABG Hemoglobin VBG pH Oxyhemoglobin Sodium Potassium Chloride 95.5 L Carbon Dioxide 31 H D BUN Creatinine Glucose 134 H POC Glucose 146 H Lactic Acid Calcium AST 44 H ALT Alkaline Phosphatase 379 H CK-MB (CK-2) CK-MB (CK-2) Rel Index Total Protein Albumin 2.7 L TSH Urine WBC (Auto) Salicylates 01/22/17 01/22/17 01/22/17 12:12 18:12 23:39 WBC RBC Hgb Hct MCV MCH RDW Plt Count Lymph % (Auto) Murray % (Auto) Eos % (Auto) Seg Neutrophils % Seg Neuts % (Manual) Lymphocytes % (Manual) Seg Neutrophils # Seg Neutrophils # Man Lymphocytes # (Manual) APTT POC ABG pH ABG pH POC ABG pCO2 POC ABG pO2 ABG pO2 ABG HCO3 ABG Base Excess ABG Hemoglobin VBG pH Oxyhemoglobin Sodium Potassium Chloride Carbon Dioxide BUN Creatinine Glucose POC Glucose 255 H 182 H 134 H Lactic Acid Calcium AST ALT Alkaline Phosphatase CK-MB (CK-2) CK-MB (CK-2) Rel Index Total Protein Albumin TSH Urine WBC (Auto) Salicylates 01/23/17 01/23/17 01/23/17 04:43 12:12 17:36 WBC RBC Hgb Hct MCV MCH RDW Plt Count Lymph % (Auto) Murray % (Auto) Eos % (Auto) Seg Neutrophils % Seg Neuts % (Manual) Lymphocytes % (Manual) Seg Neutrophils # Seg Neutrophils # Man Lymphocytes # (Manual) APTT POC ABG pH ABG pH POC ABG pCO2 POC ABG pO2 ABG pO2 ABG HCO3 ABG Base Excess ABG Hemoglobin VBG pH Oxyhemoglobin Sodium Potassium Chloride Carbon Dioxide BUN Creatinine Glucose POC Glucose 218 H 128 H 156 H Lactic Acid Calcium AST ALT Alkaline Phosphatase CK-MB (CK-2) CK-MB (CK-2) Rel Index Total Protein Albumin TSH Urine WBC (Auto) Salicylates 01/24/17 01/24/17 01/24/17 00:08 05:16 11:40 WBC RBC Hgb Hct MCV MCH RDW Plt Count Lymph % (Auto) Murray % (Auto) Eos % (Auto) Seg Neutrophils % Seg Neuts % (Manual) Lymphocytes % (Manual) Seg Neutrophils # Seg Neutrophils # Man Lymphocytes # (Manual) APTT POC ABG pH ABG pH POC ABG pCO2 POC ABG pO2 ABG pO2 ABG HCO3 ABG Base Excess ABG Hemoglobin VBG pH Oxyhemoglobin Sodium Potassium Chloride Carbon Dioxide BUN Creatinine Glucose POC Glucose 129 H 169 H 187 H Lactic Acid Calcium AST ALT Alkaline Phosphatase CK-MB (CK-2) CK-MB (CK-2) Rel Index Total Protein Albumin TSH Urine WBC (Auto) Salicylates 01/24/17 01/24/17 01/25/17 17:43 23:23 04:56 WBC RBC Hgb Hct MCV MCH RDW Plt Count Lymph % (Auto) Murray % (Auto) Eos % (Auto) Seg Neutrophils % Seg Neuts % (Manual) Lymphocytes % (Manual) Seg Neutrophils # Seg Neutrophils # Man Lymphocytes # (Manual) APTT POC ABG pH ABG pH POC ABG pCO2 POC ABG pO2 ABG pO2 ABG HCO3 ABG Base Excess ABG Hemoglobin VBG pH Oxyhemoglobin Sodium Potassium Chloride Carbon Dioxide BUN Creatinine Glucose POC Glucose 215 H 222 H 210 H Lactic Acid Calcium AST ALT Alkaline Phosphatase CK-MB (CK-2) CK-MB (CK-2) Rel Index Total Protein Albumin TSH Urine WBC (Auto) Salicylates 01/25/17 01/25/17 01/26/17 11:52 17:37 00:02 WBC RBC Hgb Hct MCV MCH RDW Plt Count Lymph % (Auto) Murray % (Auto) Eos % (Auto) Seg Neutrophils % Seg Neuts % (Manual) Lymphocytes % (Manual) Seg Neutrophils # Seg Neutrophils # Man Lymphocytes # (Manual) APTT POC ABG pH ABG pH POC ABG pCO2 POC ABG pO2 ABG pO2 ABG HCO3 ABG Base Excess ABG Hemoglobin VBG pH Oxyhemoglobin Sodium Potassium Chloride Carbon Dioxide BUN Creatinine Glucose POC Glucose 284 H 218 H 192 H Lactic Acid Calcium AST ALT Alkaline Phosphatase CK-MB (CK-2) CK-MB (CK-2) Rel Index Total Protein Albumin TSH Urine WBC (Auto) Salicylates 01/26/17 01/26/17 01/26/17 05:33 12:17 17:50 WBC RBC Hgb Hct MCV MCH RDW Plt Count Lymph % (Auto) Murray % (Auto) Eos % (Auto) Seg Neutrophils % Seg Neuts % (Manual) Lymphocytes % (Manual) Seg Neutrophils # Seg Neutrophils # Man Lymphocytes # (Manual) APTT POC ABG pH ABG pH POC ABG pCO2 POC ABG pO2 ABG pO2 ABG HCO3 ABG Base Excess ABG Hemoglobin VBG pH Oxyhemoglobin Sodium Potassium Chloride Carbon Dioxide BUN Creatinine Glucose POC Glucose 199 H 227 H 229 H Lactic Acid Calcium AST ALT Alkaline Phosphatase CK-MB (CK-2) CK-MB (CK-2) Rel Index Total Protein Albumin TSH Urine WBC (Auto) Salicylates 01/26/17 01/27/17 01/27/17 23:57 05:31 11:42 WBC RBC Hgb Hct MCV MCH RDW Plt Count Lymph % (Auto) Murray % (Auto) Eos % (Auto) Seg Neutrophils % Seg Neuts % (Manual) Lymphocytes % (Manual) Seg Neutrophils # Seg Neutrophils # Man Lymphocytes # (Manual) APTT POC ABG pH ABG pH POC ABG pCO2 POC ABG pO2 ABG pO2 ABG HCO3 ABG Base Excess ABG Hemoglobin VBG pH Oxyhemoglobin Sodium Potassium Chloride Carbon Dioxide BUN Creatinine Glucose POC Glucose 186 H 285 H 260 H Lactic Acid Calcium AST ALT Alkaline Phosphatase CK-MB (CK-2) CK-MB (CK-2) Rel Index Total Protein Albumin TSH Urine WBC (Auto) Salicylates 01/27/17 01/27/17 01/27/17 17:47 23:58 Unknown WBC 12.1 H RBC 3.28 L Hgb 8.5 L Hct 25.5 L MCV 78 L MCH 26 L RDW 16.8 H Plt Count 601 H Lymph % (Auto) Murray % (Auto) Eos % (Auto) Seg Neutrophils % Seg Neuts % (Manual) Lymphocytes % (Manual) Seg Neutrophils # Seg Neutrophils # Man Lymphocytes # (Manual) APTT POC ABG pH ABG pH POC ABG pCO2 POC ABG pO2 ABG pO2 ABG HCO3 ABG Base Excess ABG Hemoglobin VBG pH Oxyhemoglobin Sodium Potassium Chloride Carbon Dioxide BUN Creatinine Glucose POC Glucose 329 H 225 H Lactic Acid Calcium AST ALT Alkaline Phosphatase CK-MB (CK-2) CK-MB (CK-2) Rel Index Total Protein Albumin TSH Urine WBC (Auto) Salicylates 01/27/17 01/28/17 01/28/17 Unknown 03:44 03:44 WBC RBC 3.14 L Hgb 8.2 L Hct 24.1 L MCV 77 L MCH 26 L RDW 16.9 H Plt Count 567 H Lymph % (Auto) Murray % (Auto) Eos % (Auto) Seg Neutrophils % Seg Neuts % (Manual) Lymphocytes % (Manual) Seg Neutrophils # Seg Neutrophils # Man Lymphocytes # (Manual) APTT POC ABG pH ABG pH POC ABG pCO2 POC ABG pO2 ABG pO2 ABG HCO3 ABG Base Excess ABG Hemoglobin VBG pH Oxyhemoglobin Sodium 128 L Potassium 5.4 H Chloride 87.5 L Carbon Dioxide BUN 44 H 42 H Creatinine Glucose 250 H 128 H POC Glucose Lactic Acid Calcium AST ALT Alkaline Phosphatase CK-MB (CK-2) CK-MB (CK-2) Rel Index Total Protein Albumin TSH Urine WBC (Auto) Salicylates 01/28/17 01/28/17 01/28/17 11:43 16:47 17:52 WBC RBC Hgb Hct MCV MCH RDW Plt Count Lymph % (Auto) Murray % (Auto) Eos % (Auto) Seg Neutrophils % Seg Neuts % (Manual) Lymphocytes % (Manual) Seg Neutrophils # Seg Neutrophils # Man Lymphocytes # (Manual) APTT POC ABG pH ABG pH POC ABG pCO2 POC ABG pO2 ABG pO2 ABG HCO3 ABG Base Excess ABG Hemoglobin VBG pH Oxyhemoglobin Sodium Potassium Chloride Carbon Dioxide BUN Creatinine Glucose POC Glucose 351 H 249 H Lactic Acid Calcium AST ALT Alkaline Phosphatase CK-MB (CK-2) CK-MB (CK-2) Rel Index Total Protein Albumin TSH Urine WBC (Auto) > 182.0 H Salicylates 01/29/17 01/29/17 01/29/17 05:25 05:25 09:32 WBC 13.6 H RBC 3.25 L Hgb 8.3 L Hct 25.1 L MCV 77 L MCH 26 L RDW 16.8 H Plt Count 514 H Lymph % (Auto) Murray % (Auto) Eos % (Auto) Seg Neutrophils % Seg Neuts % (Manual) Lymphocytes % (Manual) Seg Neutrophils # Seg Neutrophils # Man Lymphocytes # (Manual) APTT POC ABG pH ABG pH POC ABG pCO2 POC ABG pO2 ABG pO2 ABG HCO3 ABG Base Excess ABG Hemoglobin VBG pH Oxyhemoglobin Sodium Potassium Chloride 97.8 L Carbon Dioxide BUN 34 H Creatinine Glucose 222 H POC Glucose Lactic Acid 2.50 H* Calcium AST ALT Alkaline Phosphatase CK-MB (CK-2) CK-MB (CK-2) Rel Index Total Protein Albumin TSH Urine WBC (Auto) Salicylates 01/29/17 01/29/17 01/29/17 11:56 18:11 23:55 WBC RBC Hgb Hct MCV MCH RDW Plt Count Lymph % (Auto) Murray % (Auto) Eos % (Auto) Seg Neutrophils % Seg Neuts % (Manual) Lymphocytes % (Manual) Seg Neutrophils # Seg Neutrophils # Man Lymphocytes # (Manual) APTT POC ABG pH ABG pH POC ABG pCO2 POC ABG pO2 ABG pO2 ABG HCO3 ABG Base Excess ABG Hemoglobin VBG pH Oxyhemoglobin Sodium Potassium Chloride Carbon Dioxide BUN Creatinine Glucose POC Glucose 261 H 215 H 176 H Lactic Acid Calcium AST ALT Alkaline Phosphatase CK-MB (CK-2) CK-MB (CK-2) Rel Index Total Protein Albumin TSH Urine WBC (Auto) Salicylates 01/30/17 01/30/17 01/30/17 05:31 05:31 05:34 WBC 15.2 H RBC 3.09 L Hgb 7.9 L Hct 23.9 L MCV 77 L MCH 26 L RDW 16.9 H Plt Count 569 H Lymph % (Auto) Murray % (Auto) Eos % (Auto) Seg Neutrophils % Seg Neuts % (Manual) Lymphocytes % (Manual) Seg Neutrophils # Seg Neutrophils # Man Lymphocytes # (Manual) APTT POC ABG pH ABG pH POC ABG pCO2 POC ABG pO2 ABG pO2 ABG HCO3 ABG Base Excess ABG Hemoglobin VBG pH Oxyhemoglobin Sodium Potassium Chloride Carbon Dioxide BUN 24 H Creatinine Glucose 235 H POC Glucose 243 H Lactic Acid Calcium AST ALT Alkaline Phosphatase CK-MB (CK-2) CK-MB (CK-2) Rel Index Total Protein Albumin TSH Urine WBC (Auto) Salicylates 01/30/17 01/30/17 01/30/17 11:38 17:58 23:29 WBC RBC Hgb Hct MCV MCH RDW Plt Count Lymph % (Auto) Murray % (Auto) Eos % (Auto) Seg Neutrophils % Seg Neuts % (Manual) Lymphocytes % (Manual) Seg Neutrophils # Seg Neutrophils # Man Lymphocytes # (Manual) APTT POC ABG pH ABG pH POC ABG pCO2 POC ABG pO2 ABG pO2 ABG HCO3 ABG Base Excess ABG Hemoglobin VBG pH Oxyhemoglobin Sodium Potassium Chloride Carbon Dioxide BUN Creatinine Glucose POC Glucose 298 H 208 H 245 H Lactic Acid Calcium AST ALT Alkaline Phosphatase CK-MB (CK-2) CK-MB (CK-2) Rel Index Total Protein Albumin TSH Urine WBC (Auto) Salicylates 01/31/17 01/31/17 01/31/17 04:39 04:39 05:57 WBC 11.4 H RBC 3.22 L Hgb 8.2 L Hct 24.9 L MCV 78 L MCH 25 L RDW 17.2 H Plt Count 576 H Lymph % (Auto) Murray % (Auto) Eos % (Auto) Seg Neutrophils % Seg Neuts % (Manual) Lymphocytes % (Manual) Seg Neutrophils # Seg Neutrophils # Man Lymphocytes # (Manual) APTT POC ABG pH ABG pH POC ABG pCO2 POC ABG pO2 ABG pO2 ABG HCO3 ABG Base Excess ABG Hemoglobin VBG pH Oxyhemoglobin Sodium Potassium Chloride Carbon Dioxide BUN Creatinine 0.7 L Glucose 223 H POC Glucose 264 H Lactic Acid Calcium AST ALT Alkaline Phosphatase CK-MB (CK-2) CK-MB (CK-2) Rel Index Total Protein Albumin TSH Urine WBC (Auto) Salicylates 01/31/17 01/31/17 01/31/17 12:23 17:41 18:55 WBC RBC Hgb Hct MCV MCH RDW Plt Count Lymph % (Auto) Murray % (Auto) Eos % (Auto) Seg Neutrophils % Seg Neuts % (Manual) Lymphocytes % (Manual) Seg Neutrophils # Seg Neutrophils # Man Lymphocytes # (Manual) APTT POC ABG pH ABG pH POC ABG pCO2 32.8 L POC ABG pO2 ABG pO2 ABG HCO3 ABG Base Excess ABG Hemoglobin VBG pH Oxyhemoglobin Sodium Potassium Chloride Carbon Dioxide BUN Creatinine Glucose POC Glucose 252 H 208 H Lactic Acid Calcium AST ALT Alkaline Phosphatase CK-MB (CK-2) CK-MB (CK-2) Rel Index Total Protein Albumin TSH Urine WBC (Auto) Salicylates 01/31/17 02/01/17 02/01/17 22:59 03:38 03:38 WBC RBC 2.81 L Hgb 7.4 L Hct 22.1 L MCV 79 L MCH 27 L RDW 17.0 H Plt Count 540 H Lymph % (Auto) Murray % (Auto) Eos % (Auto) Seg Neutrophils % Seg Neuts % (Manual) Lymphocytes % (Manual) Seg Neutrophils # Seg Neutrophils # Man Lymphocytes # (Manual) APTT POC ABG pH ABG pH POC ABG pCO2 POC ABG pO2 ABG pO2 ABG HCO3 ABG Base Excess ABG Hemoglobin VBG pH Oxyhemoglobin Sodium Potassium Chloride Carbon Dioxide 21 L BUN Creatinine 0.7 L Glucose POC Glucose 40 L Lactic Acid Calcium AST ALT Alkaline Phosphatase CK-MB (CK-2) CK-MB (CK-2) Rel Index Total Protein Albumin TSH Urine WBC (Auto) Salicylates 02/01/17 02/01/17 02/01/17 05:17 12:19 16:44 WBC RBC Hgb Hct MCV MCH RDW Plt Count Lymph % (Auto) Murray % (Auto) Eos % (Auto) Seg Neutrophils % Seg Neuts % (Manual) Lymphocytes % (Manual) Seg Neutrophils # Seg Neutrophils # Man Lymphocytes # (Manual) APTT POC ABG pH ABG pH POC ABG pCO2 POC ABG pO2 ABG pO2 ABG HCO3 ABG Base Excess ABG Hemoglobin VBG pH Oxyhemoglobin Sodium Potassium Chloride Carbon Dioxide BUN Creatinine Glucose POC Glucose 140 H 213 H 172 H Lactic Acid Calcium AST ALT Alkaline Phosphatase CK-MB (CK-2) CK-MB (CK-2) Rel Index Total Protein Albumin TSH Urine WBC (Auto) Salicylates 02/01/17 02/02/17 02/02/17 23:59 05:14 11:24 WBC RBC Hgb Hct MCV MCH RDW Plt Count Lymph % (Auto) [place] % (Auto) Eos % (Auto) Seg Neutrophils % Seg Neuts % (Manual) Lymphocytes % (Manual) Seg Neutrophils # Seg Neutrophils # Man Lymphocytes # (Manual) APTT POC ABG pH ABG pH POC ABG pCO2 POC ABG pO2 ABG pO2 ABG HCO3 ABG Base Excess ABG Hemoglobin VBG pH Oxyhemoglobin Sodium Potassium Chloride Carbon Dioxide BUN Creatinine Glucose POC Glucose 181 H 194 H 209 H Lactic Acid Calcium AST ALT Alkaline Phosphatase CK-MB (CK-2) CK-MB (CK-2) Rel Index Total Protein Albumin TSH Urine WBC (Auto) Salicylates 02/02/17 02/02/17 02/02/17 11:46 11:46 17:47 WBC RBC 2.94 L Hgb 7.5 L Hct 23.0 L MCV 78 L MCH 25 L RDW 16.9 H Plt Count 520 H Lymph % (Auto) [place] % (Auto) Eos % (Auto) Seg Neutrophils % Seg Neuts % (Manual) Lymphocytes % (Manual) Seg Neutrophils # Seg Neutrophils # Man Lymphocytes # (Manual) APTT POC ABG pH ABG pH POC ABG pCO2 POC ABG pO2 ABG pO2 ABG HCO3 ABG Base Excess ABG Hemoglobin VBG pH Oxyhemoglobin Sodium Potassium Chloride Carbon Dioxide BUN Creatinine 0.6 L Glucose 189 H POC Glucose 147 H Lactic Acid Calcium 8.1 L AST ALT Alkaline Phosphatase CK-MB (CK-2) CK-MB (CK-2) Rel Index Total Protein Albumin TSH Urine WBC (Auto) Salicylates 02/02/17 02/03/17 02/03/17 23:32 05:53 11:19 WBC RBC Hgb Hct MCV MCH RDW Plt Count Lymph % (Auto) [place] % (Auto) Eos % (Auto) Seg Neutrophils % Seg Neuts % (Manual) Lymphocytes % (Manual) Seg Neutrophils # Seg Neutrophils # Man Lymphocytes # (Manual) APTT POC ABG pH ABG pH POC ABG pCO2 POC ABG pO2 ABG pO2 ABG HCO3 ABG Base Excess ABG Hemoglobin VBG pH Oxyhemoglobin Sodium Potassium Chloride Carbon Dioxide BUN Creatinine Glucose POC Glucose 176 H 224 H 228 H Lactic Acid Calcium AST ALT Alkaline Phosphatase CK-MB (CK-2) CK-MB (CK-2) Rel Index Total Protein Albumin TSH Urine WBC (Auto) Salicylates 02/03/17 02/03/17 02/04/17 16:59 23:38 05:45 WBC RBC Hgb Hct MCV MCH RDW Plt Count Lymph % (Auto) [place] % (Auto) Eos % (Auto) Seg Neutrophils % Seg Neuts % (Manual) Lymphocytes % (Manual) Seg Neutrophils # Seg Neutrophils # Man Lymphocytes # (Manual) APTT POC ABG pH ABG pH POC ABG pCO2 POC ABG pO2 ABG pO2 ABG HCO3 ABG Base Excess ABG Hemoglobin VBG pH Oxyhemoglobin Sodium Potassium Chloride Carbon Dioxide BUN Creatinine Glucose POC Glucose 189 H 191 H 251 H Lactic Acid Calcium AST ALT Alkaline Phosphatase CK-MB (CK-2) CK-MB (CK-2) Rel Index Total Protein Albumin TSH Urine WBC (Auto) Salicylates 02/04/17 02/04/17 02/05/17 11:20 17:20 00:17 WBC RBC Hgb Hct MCV MCH RDW Plt Count Lymph % (Auto) [place] % (Auto) Eos % (Auto) Seg Neutrophils % Seg Neuts % (Manual) Lymphocytes % (Manual) Seg Neutrophils # Seg Neutrophils # Man Lymphocytes # (Manual) APTT POC ABG pH ABG pH POC ABG pCO2 POC ABG pO2 ABG pO2 ABG HCO3 ABG Base Excess ABG Hemoglobin VBG pH Oxyhemoglobin Sodium Potassium Chloride Carbon Dioxide BUN Creatinine Glucose POC Glucose 243 H 163 H 200 H Lactic Acid Calcium AST ALT Alkaline Phosphatase CK-MB (CK-2) CK-MB (CK-2) Rel Index Total Protein Albumin TSH Urine WBC (Auto) Salicylates 02/05/17 02/05/17 02/05/17 05:38 12:38 16:29 WBC RBC Hgb Hct MCV MCH RDW Plt Count Lymph % (Auto) [place] % (Auto) Eos % (Auto) Seg Neutrophils % Seg Neuts % (Manual) Lymphocytes % (Manual) Seg Neutrophils # Seg Neutrophils # Man Lymphocytes # (Manual) APTT POC ABG pH ABG pH POC ABG pCO2 POC ABG pO2 ABG pO2 ABG HCO3 ABG Base Excess ABG Hemoglobin VBG pH Oxyhemoglobin Sodium Potassium Chloride Carbon Dioxide BUN Creatinine Glucose POC Glucose 248 H 241 H 257 H Lactic Acid Calcium AST ALT Alkaline Phosphatase CK-MB (CK-2) CK-MB (CK-2) Rel Index Total Protein Albumin TSH Urine WBC (Auto) Salicylates 02/05/17 02/06/17 02/06/17 23:56 05:30 11:50 WBC RBC Hgb Hct MCV MCH RDW Plt Count Lymph % (Auto) [place] % (Auto) Eos % (Auto) Seg Neutrophils % Seg Neuts % (Manual) Lymphocytes % (Manual) Seg Neutrophils # Seg Neutrophils # Man Lymphocytes # (Manual) APTT POC ABG pH ABG pH POC ABG pCO2 POC ABG pO2 ABG pO2 ABG HCO3 ABG Base Excess ABG Hemoglobin VBG pH Oxyhemoglobin Sodium Potassium Chloride Carbon Dioxide BUN Creatinine Glucose POC Glucose 258 H 120 H 254 H Lactic Acid Calcium AST ALT Alkaline Phosphatase CK-MB (CK-2) CK-MB (CK-2) Rel Index Total Protein Albumin TSH Urine WBC (Auto) Salicylates 02/06/17 02/06/17 02/07/17 17:11 23:50 05:22 WBC RBC Hgb Hct MCV MCH RDW Plt Count Lymph % (Auto) [place] % (Auto) Eos % (Auto) Seg Neutrophils % Seg Neuts % (Manual) Lymphocytes % (Manual) Seg Neutrophils # Seg Neutrophils # Man Lymphocytes # (Manual) APTT POC ABG pH ABG pH POC ABG pCO2 POC ABG pO2 ABG pO2 ABG HCO3 ABG Base Excess ABG Hemoglobin VBG pH Oxyhemoglobin Sodium Potassium Chloride Carbon Dioxide BUN Creatinine Glucose POC Glucose 149 H 240 H 258 H Lactic Acid Calcium AST ALT Alkaline Phosphatase CK-MB (CK-2) CK-MB (CK-2) Rel Index Total Protein Albumin TSH Urine WBC (Auto) Salicylates 02/07/17 02/07/17 02/07/17 11:15 18:33 23:59 WBC RBC Hgb Hct MCV MCH RDW Plt Count Lymph % (Auto) [place] % (Auto) Eos % (Auto) Seg Neutrophils % Seg Neuts % (Manual) Lymphocytes % (Manual) Seg Neutrophils # Seg Neutrophils # Man Lymphocytes # (Manual) APTT POC ABG pH ABG pH POC ABG pCO2 POC ABG pO2 ABG pO2 ABG HCO3 ABG Base Excess ABG Hemoglobin VBG pH Oxyhemoglobin Sodium Potassium Chloride Carbon Dioxide BUN Creatinine Glucose POC Glucose 239 H 176 H 186 H Lactic Acid Calcium AST ALT Alkaline Phosphatase CK-MB (CK-2) CK-MB (CK-2) Rel Index Total Protein Albumin TSH Urine WBC (Auto) Salicylates 02/08/17 02/08/17 02/08/17 06:15 11:55 16:55 WBC RBC Hgb Hct MCV MCH RDW Plt Count Lymph % (Auto) Murray % (Auto) Eos % (Auto) Seg Neutrophils % Seg Neuts % (Manual) Lymphocytes % (Manual) Seg Neutrophils # Seg Neutrophils # Man Lymphocytes # (Manual) APTT POC ABG pH ABG pH POC ABG pCO2 POC ABG pO2 ABG pO2 ABG HCO3 ABG Base Excess ABG Hemoglobin VBG pH Oxyhemoglobin Sodium Potassium Chloride Carbon Dioxide BUN Creatinine Glucose POC Glucose 195 H 129 H 246 H Lactic Acid Calcium AST ALT Alkaline Phosphatase CK-MB (CK-2) CK-MB (CK-2) Rel Index Total Protein Albumin TSH Urine WBC (Auto) Salicylates 02/08/17 02/09/17 02/09/17 23:51 05:51 07:24 WBC 14.7 H RBC 3.39 L Hgb 8.9 L Hct 26.4 L MCV 78 L MCH 26 L RDW 18.4 H Plt Count 670 H Lymph % (Auto) 11.8 L Murray % (Auto) Eos % (Auto) Seg Neutrophils % 81.2 H Seg Neuts % (Manual) Lymphocytes % (Manual) Seg Neutrophils # 11.9 H Seg Neutrophils # Man Lymphocytes # (Manual) APTT POC ABG pH ABG pH POC ABG pCO2 POC ABG pO2 ABG pO2 ABG HCO3 ABG Base Excess ABG Hemoglobin VBG pH Oxyhemoglobin Sodium Potassium Chloride Carbon Dioxide BUN Creatinine Glucose POC Glucose 262 H 295 H Lactic Acid Calcium AST ALT Alkaline Phosphatase CK-MB (CK-2) CK-MB (CK-2) Rel Index Total Protein Albumin TSH Urine WBC (Auto) Salicylates 02/09/17 02/09/17 02/09/17 07:24 12:08 18:39 WBC RBC Hgb Hct MCV MCH RDW Plt Count Lymph % (Auto) [place] % (Auto) Eos % (Auto) Seg Neutrophils % Seg Neuts % (Manual) Lymphocytes % (Manual) Seg Neutrophils # Seg Neutrophils # Man Lymphocytes # (Manual) APTT POC ABG pH ABG pH POC ABG pCO2 POC ABG pO2 ABG pO2 ABG HCO3 ABG Base Excess ABG Hemoglobin VBG pH Oxyhemoglobin Sodium Potassium Chloride 95.5 L Carbon Dioxide BUN 52 H Creatinine Glucose 277 H POC Glucose 236 H 151 H Lactic Acid Calcium AST ALT Alkaline Phosphatase CK-MB (CK-2) CK-MB (CK-2) Rel Index Total Protein Albumin TSH Urine WBC (Auto) Salicylates 02/10/17 02/10/17 02/10/17 00:01 05:44 11:21 WBC RBC Hgb Hct MCV MCH RDW Plt Count Lymph % (Auto) Murray % (Auto) Eos % (Auto) Seg Neutrophils % Seg Neuts % (Manual) Lymphocytes % (Manual) Seg Neutrophils # Seg Neutrophils # Man Lymphocytes # (Manual) APTT POC ABG pH ABG pH POC ABG pCO2 POC ABG pO2 ABG pO2 ABG HCO3 ABG Base Excess ABG Hemoglobin VBG pH Oxyhemoglobin Sodium Potassium Chloride Carbon Dioxide BUN Creatinine Glucose POC Glucose 210 H 201 H 233 H Lactic Acid Calcium AST ALT Alkaline Phosphatase CK-MB (CK-2) CK-MB (CK-2) Rel Index Total Protein Albumin TSH Urine WBC (Auto) Salicylates 02/10/17 02/10/17 02/11/17 17:29 23:56 05:24 WBC RBC Hgb Hct MCV MCH RDW Plt Count Lymph % (Auto) [place] % (Auto) Eos % (Auto) Seg Neutrophils % Seg Neuts % (Manual) Lymphocytes % (Manual) Seg Neutrophils # Seg Neutrophils # Man Lymphocytes # (Manual) APTT POC ABG pH ABG pH POC ABG pCO2 POC ABG pO2 ABG pO2 ABG HCO3 ABG Base Excess ABG Hemoglobin VBG pH Oxyhemoglobin Sodium Potassium Chloride Carbon Dioxide BUN Creatinine Glucose POC Glucose 167 H 191 H 135 H Lactic Acid Calcium AST ALT Alkaline Phosphatase CK-MB (CK-2) CK-MB (CK-2) Rel Index Total Protein Albumin TSH Urine WBC (Auto) Salicylates 02/11/17 02/11/17 02/11/17 12:25 17:03 23:59 WBC RBC Hgb Hct MCV MCH RDW Plt Count Lymph % (Auto) Murray % (Auto) Eos % (Auto) Seg Neutrophils % Seg Neuts % (Manual) Lymphocytes % (Manual) Seg Neutrophils # Seg Neutrophils # Man Lymphocytes # (Manual) APTT POC ABG pH ABG pH POC ABG pCO2 POC ABG pO2 ABG pO2 ABG HCO3 ABG Base Excess ABG Hemoglobin VBG pH Oxyhemoglobin Sodium Potassium Chloride Carbon Dioxide BUN Creatinine Glucose POC Glucose 275 H 172 H 215 H Lactic Acid Calcium AST ALT Alkaline Phosphatase CK-MB (CK-2) CK-MB (CK-2) Rel Index Total Protein Albumin TSH Urine WBC (Auto) Salicylates 02/12/17 02/12/17 02/12/17 05:39 11:33 17:55 WBC RBC Hgb Hct MCV MCH RDW Plt Count Lymph % (Auto) Murray % (Auto) Eos % (Auto) Seg Neutrophils % Seg Neuts % (Manual) Lymphocytes % (Manual) Seg Neutrophils # Seg Neutrophils # Man Lymphocytes # (Manual) APTT POC ABG pH ABG pH POC ABG pCO2 POC ABG pO2 ABG pO2 ABG HCO3 ABG Base Excess ABG Hemoglobin VBG pH Oxyhemoglobin Sodium Potassium Chloride Carbon Dioxide BUN Creatinine Glucose POC Glucose 261 H 217 H 172 H Lactic Acid Calcium AST ALT Alkaline Phosphatase CK-MB (CK-2) CK-MB (CK-2) Rel Index Total Protein Albumin TSH Urine WBC (Auto) Salicylates 02/13/17 02/13/17 02/13/17 00:25 06:46 11:26 WBC RBC Hgb Hct MCV MCH RDW Plt Count Lymph % (Auto) Murray % (Auto) Eos % (Auto) Seg Neutrophils % Seg Neuts % (Manual) Lymphocytes % (Manual) Seg Neutrophils # Seg Neutrophils # Man Lymphocytes # (Manual) APTT POC ABG pH ABG pH POC ABG pCO2 POC ABG pO2 ABG pO2 ABG HCO3 ABG Base Excess ABG Hemoglobin VBG pH Oxyhemoglobin Sodium Potassium Chloride Carbon Dioxide BUN Creatinine Glucose POC Glucose 207 H 219 H 231 H Lactic Acid Calcium AST ALT Alkaline Phosphatase CK-MB (CK-2) CK-MB (CK-2) Rel Index Total Protein Albumin TSH Urine WBC (Auto) Salicylates 02/13/17 02/13/17 02/14/17 17:12 23:44 05:44 WBC RBC Hgb Hct MCV MCH RDW Plt Count Lymph % (Auto) Murray % (Auto) Eos % (Auto) Seg Neutrophils % Seg Neuts % (Manual) Lymphocytes % (Manual) Seg Neutrophils # Seg Neutrophils # Man Lymphocytes # (Manual) APTT POC ABG pH ABG pH POC ABG pCO2 POC ABG pO2 ABG pO2 ABG HCO3 ABG Base Excess ABG Hemoglobin VBG pH Oxyhemoglobin Sodium Potassium Chloride Carbon Dioxide BUN Creatinine Glucose POC Glucose 190 H 256 H 184 H Lactic Acid Calcium AST ALT Alkaline Phosphatase CK-MB (CK-2) CK-MB (CK-2) Rel Index Total Protein Albumin TSH Urine WBC (Auto) Salicylates 02/14/17 02/14/17 02/14/17 12:21 17:57 23:18 WBC RBC Hgb Hct MCV MCH RDW Plt Count Lymph % (Auto) Murray % (Auto) Eos % (Auto) Seg Neutrophils % Seg Neuts % (Manual) Lymphocytes % (Manual) Seg Neutrophils # Seg Neutrophils # Man Lymphocytes # (Manual) APTT POC ABG pH ABG pH POC ABG pCO2 POC ABG pO2 ABG pO2 ABG HCO3 ABG Base Excess ABG Hemoglobin VBG pH Oxyhemoglobin Sodium Potassium Chloride Carbon Dioxide BUN Creatinine Glucose POC Glucose 233 H 155 H 165 H Lactic Acid Calcium AST ALT Alkaline Phosphatase CK-MB (CK-2) CK-MB (CK-2) Rel Index Total Protein Albumin TSH Urine WBC (Auto) Salicylates 02/15/17 02/15/17 02/15/17 05:33 11:45 17:20 WBC RBC Hgb Hct MCV MCH RDW Plt Count Lymph % (Auto) Murray % (Auto) Eos % (Auto) Seg Neutrophils % Seg Neuts % (Manual) Lymphocytes % (Manual) Seg Neutrophils # Seg Neutrophils # Man Lymphocytes # (Manual) APTT POC ABG pH ABG pH POC ABG pCO2 POC ABG pO2 ABG pO2 ABG HCO3 ABG Base Excess ABG Hemoglobin VBG pH Oxyhemoglobin Sodium Potassium Chloride Carbon Dioxide BUN Creatinine Glucose POC Glucose 239 H 130 H 189 H Lactic Acid Calcium AST ALT Alkaline Phosphatase CK-MB (CK-2) CK-MB (CK-2) Rel Index Total Protein Albumin TSH Urine WBC (Auto) Salicylates 02/16/17 02/16/17 02/16/17 00:14 05:09 12:31 WBC RBC Hgb Hct MCV MCH RDW Plt Count Lymph % (Auto) [place] % (Auto) Eos % (Auto) Seg Neutrophils % Seg Neuts % (Manual) Lymphocytes % (Manual) Seg Neutrophils # Seg Neutrophils # Man Lymphocytes # (Manual) APTT POC ABG pH ABG pH POC ABG pCO2 POC ABG pO2 ABG pO2 ABG HCO3 ABG Base Excess ABG Hemoglobin VBG pH Oxyhemoglobin Sodium Potassium Chloride Carbon Dioxide BUN Creatinine Glucose POC Glucose 197 H 226 H 178 H Lactic Acid Calcium AST ALT Alkaline Phosphatase CK-MB (CK-2) CK-MB (CK-2) Rel Index Total Protein Albumin TSH Urine WBC (Auto) Salicylates 02/16/17 02/16/17 02/17/17 16:35 23:49 05:37 WBC RBC Hgb Hct MCV MCH RDW Plt Count Lymph % (Auto) [place] % (Auto) Eos % (Auto) Seg Neutrophils % Seg Neuts % (Manual) Lymphocytes % (Manual) Seg Neutrophils # Seg Neutrophils # Man Lymphocytes # (Manual) APTT POC ABG pH ABG pH POC ABG pCO2 POC ABG pO2 ABG pO2 ABG HCO3 ABG Base Excess ABG Hemoglobin VBG pH Oxyhemoglobin Sodium Potassium Chloride Carbon Dioxide BUN Creatinine Glucose POC Glucose 174 H 62 L 153 H Lactic Acid Calcium AST ALT Alkaline Phosphatase CK-MB (CK-2) CK-MB (CK-2) Rel Index Total Protein Albumin TSH Urine WBC (Auto) Salicylates 02/17/17 02/17/17 02/17/17 11:39 17:02 22:24 WBC RBC Hgb Hct MCV MCH RDW Plt Count Lymph % (Auto) [place] % (Auto) Eos % (Auto) Seg Neutrophils % Seg Neuts % (Manual) Lymphocytes % (Manual) Seg Neutrophils # Seg Neutrophils # Man Lymphocytes # (Manual) APTT POC ABG pH ABG pH POC ABG pCO2 POC ABG pO2 ABG pO2 ABG HCO3 ABG Base Excess ABG Hemoglobin VBG pH Oxyhemoglobin Sodium Potassium Chloride Carbon Dioxide BUN Creatinine Glucose POC Glucose 231 H 112 H 116 H Lactic Acid Calcium AST ALT Alkaline Phosphatase CK-MB (CK-2) CK-MB (CK-2) Rel Index Total Protein Albumin TSH Urine WBC (Auto) Salicylates 02/18/17 02/19/17 02/19/17 15:34 05:09 07:57 WBC RBC Hgb Hct MCV MCH RDW Plt Count Lymph % (Auto) [place] % (Auto) Eos % (Auto) Seg Neutrophils % Seg Neuts % (Manual) Lymphocytes % (Manual) Seg Neutrophils # Seg Neutrophils # Man Lymphocytes # (Manual) APTT POC ABG pH ABG pH POC ABG pCO2 POC ABG pO2 ABG pO2 ABG HCO3 ABG Base Excess ABG Hemoglobin VBG pH Oxyhemoglobin Sodium Potassium Chloride Carbon Dioxide BUN Creatinine Glucose POC Glucose 215 H 218 H 283 H Lactic Acid Calcium AST ALT Alkaline Phosphatase CK-MB (CK-2) CK-MB (CK-2) Rel Index Total Protein Albumin TSH Urine WBC (Auto) Salicylates 02/19/17 02/19/17 02/20/17 14:49 22:10 05:10 WBC RBC Hgb Hct MCV MCH RDW Plt Count Lymph % (Auto) [place] % (Auto) Eos % (Auto) Seg Neutrophils % Seg Neuts % (Manual) Lymphocytes % (Manual) Seg Neutrophils # Seg Neutrophils # Man Lymphocytes # (Manual) APTT POC ABG pH ABG pH POC ABG pCO2 POC ABG pO2 ABG pO2 ABG HCO3 ABG Base Excess ABG Hemoglobin VBG pH Oxyhemoglobin Sodium Potassium Chloride Carbon Dioxide BUN Creatinine Glucose POC Glucose 290 H 169 H 209 H Lactic Acid Calcium AST ALT Alkaline Phosphatase CK-MB (CK-2) CK-MB (CK-2) Rel Index Total Protein Albumin TSH Urine WBC (Auto) Salicylates 02/20/17 02/20/17 02/21/17 15:05 21:52 02:00 WBC RBC Hgb Hct MCV MCH RDW Plt Count Lymph % (Auto) [place] % (Auto) Eos % (Auto) Seg Neutrophils % Seg Neuts % (Manual) Lymphocytes % (Manual) Seg Neutrophils # Seg Neutrophils # Man Lymphocytes # (Manual) APTT POC ABG pH ABG pH POC ABG pCO2 POC ABG pO2 ABG pO2 ABG HCO3 ABG Base Excess ABG Hemoglobin VBG pH Oxyhemoglobin Sodium Potassium Chloride Carbon Dioxide BUN Creatinine Glucose POC Glucose 172 H 209 H 216 H Lactic Acid Calcium AST ALT Alkaline Phosphatase CK-MB (CK-2) CK-MB (CK-2) Rel Index Total Protein Albumin TSH Urine WBC (Auto) Salicylates 02/21/17 02/21/17 02/21/17 04:54 14:43 17:47 WBC RBC Hgb Hct MCV MCH RDW Plt Count Lymph % (Auto) Murray % (Auto) Eos % (Auto) Seg Neutrophils % Seg Neuts % (Manual) Lymphocytes % (Manual) Seg Neutrophils # Seg Neutrophils # Man Lymphocytes # (Manual) APTT POC ABG pH ABG pH POC ABG pCO2 POC ABG pO2 ABG pO2 ABG HCO3 ABG Base Excess ABG Hemoglobin VBG pH Oxyhemoglobin Sodium Potassium Chloride Carbon Dioxide BUN Creatinine Glucose POC Glucose 227 H 290 H 220 H Lactic Acid Calcium AST ALT Alkaline Phosphatase CK-MB (CK-2) CK-MB (CK-2) Rel Index Total Protein Albumin TSH Urine WBC (Auto) Salicylates 02/21/17 02/22/17 02/22/17 22:02 04:52 15:25 WBC RBC Hgb Hct MCV MCH RDW Plt Count Lymph % (Auto) Murray % (Auto) Eos % (Auto) Seg Neutrophils % Seg Neuts % (Manual) Lymphocytes % (Manual) Seg Neutrophils # Seg Neutrophils # Man Lymphocytes # (Manual) APTT POC ABG pH ABG pH POC ABG pCO2 POC ABG pO2 ABG pO2 ABG HCO3 ABG Base Excess ABG Hemoglobin VBG pH Oxyhemoglobin Sodium Potassium Chloride Carbon Dioxide BUN Creatinine Glucose POC Glucose 246 H 212 H 236 H Lactic Acid Calcium AST ALT Alkaline Phosphatase CK-MB (CK-2) CK-MB (CK-2) Rel Index Total Protein Albumin TSH Urine WBC (Auto) Salicylates 02/22/17 02/23/17 02/23/17 21:33 06:04 10:00 WBC RBC Hgb Hct MCV MCH RDW Plt Count Lymph % (Auto) Murray % (Auto) Eos % (Auto) Seg Neutrophils % Seg Neuts % (Manual) Lymphocytes % (Manual) Seg Neutrophils # Seg Neutrophils # Man Lymphocytes # (Manual) APTT POC ABG pH ABG pH POC ABG pCO2 POC ABG pO2 ABG pO2 ABG HCO3 ABG Base Excess ABG Hemoglobin VBG pH Oxyhemoglobin Sodium Potassium Chloride Carbon Dioxide BUN Creatinine Glucose POC Glucose 255 H 208 H 174 H Lactic Acid Calcium AST ALT Alkaline Phosphatase CK-MB (CK-2) CK-MB (CK-2) Rel Index Total Protein Albumin TSH Urine WBC (Auto) Salicylates 02/23/17 02/23/17 02/23/17 12:52 17:15 21:51 WBC RBC Hgb Hct MCV MCH RDW Plt Count Lymph % (Auto) Murray % (Auto) Eos % (Auto) Seg Neutrophils % Seg Neuts % (Manual) Lymphocytes % (Manual) Seg Neutrophils # Seg Neutrophils # Man Lymphocytes # (Manual) APTT POC ABG pH ABG pH POC ABG pCO2 POC ABG pO2 ABG pO2 ABG HCO3 ABG Base Excess ABG Hemoglobin VBG pH Oxyhemoglobin Sodium Potassium Chloride Carbon Dioxide BUN Creatinine Glucose POC Glucose 203 H 269 H 205 H Lactic Acid Calcium AST ALT Alkaline Phosphatase CK-MB (CK-2) CK-MB (CK-2) Rel Index Total Protein Albumin TSH Urine WBC (Auto) Salicylates 02/24/17 02/24/17 02/24/17 10:23 17:45 21:24 WBC RBC Hgb Hct MCV MCH RDW Plt Count Lymph % (Auto) Murray % (Auto) Eos % (Auto) Seg Neutrophils % Seg Neuts % (Manual) Lymphocytes % (Manual) Seg Neutrophils # Seg Neutrophils # Man Lymphocytes # (Manual) APTT POC ABG pH ABG pH POC ABG pCO2 POC ABG pO2 ABG pO2 ABG HCO3 ABG Base Excess ABG Hemoglobin VBG pH Oxyhemoglobin Sodium Potassium Chloride Carbon Dioxide BUN Creatinine Glucose POC Glucose 280 H 239 H 254 H Lactic Acid Calcium AST ALT Alkaline Phosphatase CK-MB (CK-2) CK-MB (CK-2) Rel Index Total Protein Albumin TSH Urine WBC (Auto) Salicylates 02/25/17 02/25/17 02/25/17 02:12 05:17 14:32 WBC RBC Hgb Hct MCV MCH RDW Plt Count Lymph % (Auto) Murray % (Auto) Eos % (Auto) Seg Neutrophils % Seg Neuts % (Manual) Lymphocytes % (Manual) Seg Neutrophils # Seg Neutrophils # Man Lymphocytes # (Manual) APTT POC ABG pH ABG pH POC ABG pCO2 POC ABG pO2 ABG pO2 ABG HCO3 ABG Base Excess ABG Hemoglobin VBG pH Oxyhemoglobin Sodium Potassium Chloride Carbon Dioxide BUN Creatinine Glucose POC Glucose 296 H 332 H 353 H Lactic Acid Calcium AST ALT Alkaline Phosphatase CK-MB (CK-2) CK-MB (CK-2) Rel Index Total Protein Albumin TSH Urine WBC (Auto) Salicylates 02/25/17 02/26/17 02/26/17 22:14 00:37 05:52 WBC RBC Hgb Hct MCV MCH RDW Plt Count Lymph % (Auto) Murray % (Auto) Eos % (Auto) Seg Neutrophils % Seg Neuts % (Manual) Lymphocytes % (Manual) Seg Neutrophils # Seg Neutrophils # Man Lymphocytes # (Manual) APTT POC ABG pH ABG pH POC ABG pCO2 POC ABG pO2 ABG pO2 ABG HCO3 ABG Base Excess ABG Hemoglobin VBG pH Oxyhemoglobin Sodium Potassium Chloride Carbon Dioxide BUN Creatinine Glucose POC Glucose 201 H 233 H 269 H Lactic Acid Calcium AST ALT Alkaline Phosphatase CK-MB (CK-2) CK-MB (CK-2) Rel Index Total Protein Albumin TSH Urine WBC (Auto) Salicylates 02/26/17 02/26/17 02/26/17 11:48 13:49 21:26 WBC RBC Hgb Hct MCV MCH RDW Plt Count Lymph % (Auto) Murray % (Auto) Eos % (Auto) Seg Neutrophils % Seg Neuts % (Manual) Lymphocytes % (Manual) Seg Neutrophils # Seg Neutrophils # Man Lymphocytes # (Manual) APTT POC ABG pH ABG pH POC ABG pCO2 POC ABG pO2 ABG pO2 ABG HCO3 ABG Base Excess ABG Hemoglobin VBG pH Oxyhemoglobin Sodium Potassium Chloride Carbon Dioxide BUN Creatinine Glucose POC Glucose 333 H 322 H 244 H Lactic Acid Calcium AST ALT Alkaline Phosphatase CK-MB (CK-2) CK-MB (CK-2) Rel Index Total Protein Albumin TSH Urine WBC (Auto) Salicylates 02/27/17 02/27/17 02/27/17 05:27 13:51 21:48 WBC RBC Hgb Hct MCV MCH RDW Plt Count Lymph % (Auto) [place] % (Auto) Eos % (Auto) Seg Neutrophils % Seg Neuts % (Manual) Lymphocytes % (Manual) Seg Neutrophils # Seg Neutrophils # Man Lymphocytes # (Manual) APTT POC ABG pH ABG pH POC ABG pCO2 POC ABG pO2 ABG pO2 ABG HCO3 ABG Base Excess ABG Hemoglobin VBG pH Oxyhemoglobin Sodium Potassium Chloride Carbon Dioxide BUN Creatinine Glucose POC Glucose 217 H 239 H 254 H Lactic Acid Calcium AST ALT Alkaline Phosphatase CK-MB (CK-2) CK-MB (CK-2) Rel Index Total Protein Albumin TSH Urine WBC (Auto) Salicylates 02/28/17 02/28/17 02/28/17 05:38 11:00 19:44 WBC RBC Hgb Hct MCV MCH RDW Plt Count Lymph % (Auto) [place] % (Auto) Eos % (Auto) Seg Neutrophils % Seg Neuts % (Manual) Lymphocytes % (Manual) Seg Neutrophils # Seg Neutrophils # Man Lymphocytes # (Manual) APTT POC ABG pH ABG pH POC ABG pCO2 POC ABG pO2 ABG pO2 ABG HCO3 ABG Base Excess ABG Hemoglobin VBG pH Oxyhemoglobin Sodium Potassium Chloride Carbon Dioxide BUN Creatinine Glucose POC Glucose 325 H 203 H 116 H Lactic Acid Calcium AST ALT Alkaline Phosphatase CK-MB (CK-2) CK-MB (CK-2) Rel Index Total Protein Albumin TSH Urine WBC (Auto) Salicylates 03/01/17 03/01/17 03/01/17 00:08 05:31 12:17 WBC RBC Hgb Hct MCV MCH RDW Plt Count Lymph % (Auto) [place] % (Auto) Eos % (Auto) Seg Neutrophils % Seg Neuts % (Manual) Lymphocytes % (Manual) Seg Neutrophils # Seg Neutrophils # Man Lymphocytes # (Manual) APTT POC ABG pH ABG pH POC ABG pCO2 POC ABG pO2 ABG pO2 ABG HCO3 ABG Base Excess ABG Hemoglobin VBG pH Oxyhemoglobin Sodium Potassium Chloride Carbon Dioxide BUN Creatinine Glucose POC Glucose 202 H 183 H 184 H Lactic Acid Calcium AST ALT Alkaline Phosphatase CK-MB (CK-2) CK-MB (CK-2) Rel Index Total Protein Albumin TSH Urine WBC (Auto) Salicylates 03/02/17 03/02/17 03/02/17 00:12 05:58 18:22 WBC RBC Hgb Hct MCV MCH RDW Plt Count Lymph % (Auto) [place] % (Auto) Eos % (Auto) Seg Neutrophils % Seg Neuts % (Manual) Lymphocytes % (Manual) Seg Neutrophils # Seg Neutrophils # Man Lymphocytes # (Manual) APTT POC ABG pH ABG pH POC ABG pCO2 POC ABG pO2 ABG pO2 ABG HCO3 ABG Base Excess ABG Hemoglobin VBG pH Oxyhemoglobin Sodium Potassium Chloride Carbon Dioxide BUN Creatinine Glucose POC Glucose 117 H 176 H 156 H Lactic Acid Calcium AST ALT Alkaline Phosphatase CK-MB (CK-2) CK-MB (CK-2) Rel Index Total Protein Albumin TSH Urine WBC (Auto) Salicylates 03/02/17 03/03/17 03/03/17 23:51 05:44 11:32 WBC RBC Hgb Hct MCV MCH RDW Plt Count Lymph % (Auto) [place] % (Auto) Eos % (Auto) Seg Neutrophils % Seg Neuts % (Manual) Lymphocytes % (Manual) Seg Neutrophils # Seg Neutrophils # Man Lymphocytes # (Manual) APTT POC ABG pH ABG pH POC ABG pCO2 POC ABG pO2 ABG pO2 ABG HCO3 ABG Base Excess ABG Hemoglobin VBG pH Oxyhemoglobin Sodium Potassium Chloride Carbon Dioxide BUN Creatinine Glucose POC Glucose 211 H 117 H 133 H Lactic Acid Calcium AST ALT Alkaline Phosphatase CK-MB (CK-2) CK-MB (CK-2) Rel Index Total Protein Albumin TSH Urine WBC (Auto) Salicylates 03/03/17 03/03/17 03/04/17 17:43 23:17 05:30 WBC RBC Hgb Hct MCV MCH RDW Plt Count Lymph % (Auto) [place] % (Auto) Eos % (Auto) Seg Neutrophils % Seg Neuts % (Manual) Lymphocytes % (Manual) Seg Neutrophils # Seg Neutrophils # Man Lymphocytes # (Manual) APTT POC ABG pH ABG pH POC ABG pCO2 POC ABG pO2 ABG pO2 ABG HCO3 ABG Base Excess ABG Hemoglobin VBG pH Oxyhemoglobin Sodium Potassium Chloride Carbon Dioxide BUN Creatinine Glucose POC Glucose 206 H 170 H 126 H Lactic Acid Calcium AST ALT Alkaline Phosphatase CK-MB (CK-2) CK-MB (CK-2) Rel Index Total Protein Albumin TSH Urine WBC (Auto) Salicylates 03/04/17 03/04/17 03/05/17 12:17 17:27 05:20 WBC RBC Hgb Hct MCV MCH RDW Plt Count Lymph % (Auto) [place] % (Auto) Eos % (Auto) Seg Neutrophils % Seg Neuts % (Manual) Lymphocytes % (Manual) Seg Neutrophils # Seg Neutrophils # Man Lymphocytes # (Manual) APTT POC ABG pH ABG pH POC ABG pCO2 POC ABG pO2 ABG pO2 ABG HCO3 ABG Base Excess ABG Hemoglobin VBG pH Oxyhemoglobin Sodium Potassium Chloride Carbon Dioxide BUN Creatinine Glucose POC Glucose 135 H 121 H 185 H Lactic Acid Calcium AST ALT Alkaline Phosphatase CK-MB (CK-2) CK-MB (CK-2) Rel Index Total Protein Albumin TSH Urine WBC (Auto) Salicylates 03/05/17 03/06/17 03/06/17 11:50 11:52 17:34 WBC RBC Hgb Hct MCV MCH RDW Plt Count Lymph % (Auto) [place] % (Auto) Eos % (Auto) Seg Neutrophils % Seg Neuts % (Manual) Lymphocytes % (Manual) Seg Neutrophils # Seg Neutrophils # Man Lymphocytes # (Manual) APTT POC ABG pH ABG pH POC ABG pCO2 POC ABG pO2 ABG pO2 ABG HCO3 ABG Base Excess ABG Hemoglobin VBG pH Oxyhemoglobin Sodium Potassium Chloride Carbon Dioxide BUN Creatinine Glucose POC Glucose 116 H 133 H 181 H Lactic Acid Calcium AST ALT Alkaline Phosphatase CK-MB (CK-2) CK-MB (CK-2) Rel Index Total Protein Albumin TSH Urine WBC (Auto) Salicylates 03/07/17 03/07/17 03/07/17 05:21 11:36 17:49 WBC RBC Hgb Hct MCV MCH RDW Plt Count Lymph % (Auto) [place] % (Auto) Eos % (Auto) Seg Neutrophils % Seg Neuts % (Manual) Lymphocytes % (Manual) Seg Neutrophils # Seg Neutrophils # Man Lymphocytes # (Manual) APTT POC ABG pH ABG pH POC ABG pCO2 POC ABG pO2 ABG pO2 ABG HCO3 ABG Base Excess ABG Hemoglobin VBG pH Oxyhemoglobin Sodium Potassium Chloride Carbon Dioxide BUN Creatinine Glucose POC Glucose 159 H 137 H 158 H Lactic Acid Calcium AST ALT Alkaline Phosphatase CK-MB (CK-2) CK-MB (CK-2) Rel Index Total Protein Albumin TSH Urine WBC (Auto) Salicylates 03/08/17 03/08/17 03/08/17 05:51 13:58 23:50 WBC RBC Hgb Hct MCV MCH RDW Plt Count Lymph % (Auto) [place] % (Auto) Eos % (Auto) Seg Neutrophils % Seg Neuts % (Manual) Lymphocytes % (Manual) Seg Neutrophils # Seg Neutrophils # Man Lymphocytes # (Manual) APTT POC ABG pH ABG pH POC ABG pCO2 POC ABG pO2 ABG pO2 ABG HCO3 ABG Base Excess ABG Hemoglobin VBG pH Oxyhemoglobin Sodium Potassium Chloride Carbon Dioxide BUN Creatinine Glucose POC Glucose 122 H 182 H 114 H Lactic Acid Calcium AST ALT Alkaline Phosphatase CK-MB (CK-2) CK-MB (CK-2) Rel Index Total Protein Albumin TSH Urine WBC (Auto) Salicylates 03/09/17 03/09/17 03/09/17 05:21 05:51 05:51 WBC RBC 3.61 L Hgb 9.5 L Hct 28.3 L MCV 79 L MCH 26 L RDW 17.8 H Plt Count Lymph % (Auto) [place] % (Auto) Eos % (Auto) Seg Neutrophils % Seg Neuts % (Manual) Lymphocytes % (Manual) Seg Neutrophils # Seg Neutrophils # Man Lymphocytes # (Manual) APTT POC ABG pH ABG pH POC ABG pCO2 POC ABG pO2 ABG pO2 ABG HCO3 ABG Base Excess ABG Hemoglobin VBG pH Oxyhemoglobin Sodium 134 L Potassium Chloride 95.5 L Carbon Dioxide BUN 33 H Creatinine 0.5 L Glucose 143 H POC Glucose 153 H Lactic Acid Calcium AST ALT Alkaline Phosphatase CK-MB (CK-2) CK-MB (CK-2) Rel Index Total Protein Albumin TSH Urine WBC (Auto) Salicylates 03/09/17 03/09/17 03/09/17 12:10 18:13 21:00 WBC RBC Hgb Hct MCV MCH RDW Plt Count Lymph % (Auto) [place] % (Auto) Eos % (Auto) Seg Neutrophils % Seg Neuts % (Manual) Lymphocytes % (Manual) Seg Neutrophils # Seg Neutrophils # Man Lymphocytes # (Manual) APTT POC ABG pH ABG pH POC ABG pCO2 POC ABG pO2 ABG pO2 ABG HCO3 ABG Base Excess ABG Hemoglobin VBG pH Oxyhemoglobin Sodium Potassium Chloride Carbon Dioxide BUN Creatinine Glucose POC Glucose 203 H 221 H 198 H Lactic Acid Calcium AST ALT Alkaline Phosphatase CK-MB (CK-2) CK-MB (CK-2) Rel Index Total Protein Albumin TSH Urine WBC (Auto) Salicylates 03/09/17 03/10/17 03/10/17 23:58 05:09 05:09 WBC RBC Hgb 10.3 L Hct 30.5 L MCV 78 L MCH 26 L RDW 17.9 H Plt Count Lymph % (Auto) Murray % (Auto) 10.0 H Eos % (Auto) 6.0 H Seg Neutrophils % Seg Neuts % (Manual) Lymphocytes % (Manual) Seg Neutrophils # Seg Neutrophils # Man Lymphocytes # (Manual) APTT POC ABG pH ABG pH POC ABG pCO2 POC ABG pO2 ABG pO2 ABG HCO3 ABG Base Excess ABG Hemoglobin VBG pH Oxyhemoglobin Sodium 132 L Potassium Chloride 92.2 L Carbon Dioxide BUN 33 H Creatinine 0.5 L Glucose 50 L POC Glucose 167 H Lactic Acid Calcium AST ALT Alkaline Phosphatase CK-MB (CK-2) CK-MB (CK-2) Rel Index Total Protein Albumin TSH Urine WBC (Auto) Salicylates 03/10/17 03/10/17 03/10/17 05:33 05:34 11:48 WBC RBC Hgb Hct MCV MCH RDW Plt Count Lymph % (Auto) [place] % (Auto) Eos % (Auto) Seg Neutrophils % Seg Neuts % (Manual) Lymphocytes % (Manual) Seg Neutrophils # Seg Neutrophils # Man Lymphocytes # (Manual) APTT POC ABG pH ABG pH POC ABG pCO2 POC ABG pO2 ABG pO2 ABG HCO3 ABG Base Excess ABG Hemoglobin VBG pH Oxyhemoglobin Sodium Potassium Chloride Carbon Dioxide BUN Creatinine Glucose POC Glucose 52 L 53 L 148 H Lactic Acid Calcium AST ALT Alkaline Phosphatase CK-MB (CK-2) CK-MB (CK-2) Rel Index Total Protein Albumin TSH Urine WBC (Auto) Salicylates 03/10/17 03/10/17 03/11/17 17:53 23:47 05:18 WBC RBC Hgb Hct MCV MCH RDW Plt Count Lymph % (Auto) [place] % (Auto) Eos % (Auto) Seg Neutrophils % Seg Neuts % (Manual) Lymphocytes % (Manual) Seg Neutrophils # Seg Neutrophils # Man Lymphocytes # (Manual) APTT POC ABG pH ABG pH POC ABG pCO2 POC ABG pO2 ABG pO2 ABG HCO3 ABG Base Excess ABG Hemoglobin VBG pH Oxyhemoglobin Sodium Potassium Chloride Carbon Dioxide BUN Creatinine Glucose POC Glucose 189 H 398 H 126 H Lactic Acid Calcium AST ALT Alkaline Phosphatase CK-MB (CK-2) CK-MB (CK-2) Rel Index Total Protein Albumin TSH Urine WBC (Auto) Salicylates 03/11/17 03/11/17 03/11/17 11:53 17:30 23:10 WBC RBC Hgb Hct MCV MCH RDW Plt Count Lymph % (Auto) [place] % (Auto) Eos % (Auto) Seg Neutrophils % Seg Neuts % (Manual) Lymphocytes % (Manual) Seg Neutrophils # Seg Neutrophils # Man Lymphocytes # (Manual) APTT POC ABG pH ABG pH POC ABG pCO2 POC ABG pO2 ABG pO2 ABG HCO3 ABG Base Excess ABG Hemoglobin VBG pH Oxyhemoglobin Sodium Potassium Chloride Carbon Dioxide BUN Creatinine Glucose POC Glucose 198 H 142 H 244 H Lactic Acid Calcium AST ALT Alkaline Phosphatase CK-MB (CK-2) CK-MB (CK-2) Rel Index Total Protein Albumin TSH Urine WBC (Auto) Salicylates 03/12/17 03/12/17 03/12/17 04:36 11:49 17:23 WBC RBC Hgb Hct MCV MCH RDW Plt Count Lymph % (Auto) [place] % (Auto) Eos % (Auto) Seg Neutrophils % Seg Neuts % (Manual) Lymphocytes % (Manual) Seg Neutrophils # Seg Neutrophils # Man Lymphocytes # (Manual) APTT POC ABG pH ABG pH POC ABG pCO2 POC ABG pO2 ABG pO2 ABG HCO3 ABG Base Excess ABG Hemoglobin VBG pH Oxyhemoglobin Sodium Potassium Chloride Carbon Dioxide BUN Creatinine Glucose POC Glucose 205 H 197 H 209 H Lactic Acid Calcium AST ALT Alkaline Phosphatase CK-MB (CK-2) CK-MB (CK-2) Rel Index Total Protein Albumin TSH Urine WBC (Auto) Salicylates 03/12/17 03/13/17 03/13/17 23:51 05:32 11:43 WBC RBC Hgb Hct MCV MCH RDW Plt Count Lymph % (Auto) [place] % (Auto) Eos % (Auto) Seg Neutrophils % Seg Neuts % (Manual) Lymphocytes % (Manual) Seg Neutrophils # Seg Neutrophils # Man Lymphocytes # (Manual) APTT POC ABG pH ABG pH POC ABG pCO2 POC ABG pO2 ABG pO2 ABG HCO3 ABG Base Excess ABG Hemoglobin VBG pH Oxyhemoglobin Sodium Potassium Chloride Carbon Dioxide BUN Creatinine Glucose POC Glucose 210 H 154 H 164 H Lactic Acid Calcium AST ALT Alkaline Phosphatase CK-MB (CK-2) CK-MB (CK-2) Rel Index Total Protein Albumin TSH Urine WBC (Auto) Salicylates 03/13/17 03/13/17 03/14/17 17:11 23:26 05:42 WBC RBC Hgb Hct MCV MCH RDW Plt Count Lymph % (Auto) [place] % (Auto) Eos % (Auto) Seg Neutrophils % Seg Neuts % (Manual) Lymphocytes % (Manual) Seg Neutrophils # Seg Neutrophils # Man Lymphocytes # (Manual) APTT POC ABG pH ABG pH POC ABG pCO2 POC ABG pO2 ABG pO2 ABG HCO3 ABG Base Excess ABG Hemoglobin VBG pH Oxyhemoglobin Sodium Potassium Chloride Carbon Dioxide BUN Creatinine Glucose POC Glucose 195 H 240 H 230 H Lactic Acid Calcium AST ALT Alkaline Phosphatase CK-MB (CK-2) CK-MB (CK-2) Rel Index Total Protein Albumin TSH Urine WBC (Auto) Salicylates 03/14/17 03/14/17 03/14/17 14:04 17:34 23:42 WBC RBC Hgb Hct MCV MCH RDW Plt Count Lymph % (Auto) [place] % (Auto) Eos % (Auto) Seg Neutrophils % Seg Neuts % (Manual) Lymphocytes % (Manual) Seg Neutrophils # Seg Neutrophils # Man Lymphocytes # (Manual) APTT POC ABG pH ABG pH POC ABG pCO2 POC ABG pO2 ABG pO2 ABG HCO3 ABG Base Excess ABG Hemoglobin VBG pH Oxyhemoglobin Sodium Potassium Chloride Carbon Dioxide BUN Creatinine Glucose POC Glucose 227 H 186 H 225 H Lactic Acid Calcium AST ALT Alkaline Phosphatase CK-MB (CK-2) CK-MB (CK-2) Rel Index Total Protein Albumin TSH Urine WBC (Auto) Salicylates 03/15/17 03/15/17 03/15/17 05:21 17:13 21:37 WBC RBC Hgb Hct MCV MCH RDW Plt Count Lymph % (Auto) [place] % (Auto) Eos % (Auto) Seg Neutrophils % Seg Neuts % (Manual) Lymphocytes % (Manual) Seg Neutrophils # Seg Neutrophils # Man Lymphocytes # (Manual) APTT POC ABG pH ABG pH POC ABG pCO2 POC ABG pO2 ABG pO2 ABG HCO3 ABG Base Excess ABG Hemoglobin VBG pH Oxyhemoglobin Sodium Potassium Chloride Carbon Dioxide BUN Creatinine Glucose POC Glucose 244 H 203 H 216 H Lactic Acid Calcium AST ALT Alkaline Phosphatase CK-MB (CK-2) CK-MB (CK-2) Rel Index Total Protein Albumin TSH Urine WBC (Auto) Salicylates 03/16/17 03/16/17 03/16/17 05:52 18:07 21:54 WBC RBC Hgb Hct MCV MCH RDW Plt Count Lymph % (Auto) [place] % (Auto) Eos % (Auto) Seg Neutrophils % Seg Neuts % (Manual) Lymphocytes % (Manual) Seg Neutrophils # Seg Neutrophils # Man Lymphocytes # (Manual) APTT POC ABG pH ABG pH POC ABG pCO2 POC ABG pO2 ABG pO2 ABG HCO3 ABG Base Excess ABG Hemoglobin VBG pH Oxyhemoglobin Sodium Potassium Chloride Carbon Dioxide BUN Creatinine Glucose POC Glucose 248 H 254 H 244 H Lactic Acid Calcium AST ALT Alkaline Phosphatase CK-MB (CK-2) CK-MB (CK-2) Rel Index Total Protein Albumin TSH Urine WBC (Auto) Salicylates 03/17/17 03/17/17 03/17/17 07:07 07:42 07:43 WBC RBC Hgb 9.7 L Hct 29.1 L MCV 78 L MCH 26 L RDW 17.4 H Plt Count Lymph % (Auto) [place] % (Auto) Eos % (Auto) Seg Neutrophils % Seg Neuts % (Manual) Lymphocytes % (Manual) Seg Neutrophils # Seg Neutrophils # Man Lymphocytes # (Manual) APTT POC ABG pH ABG pH POC ABG pCO2 POC ABG pO2 ABG pO2 ABG HCO3 ABG Base Excess ABG Hemoglobin VBG pH Oxyhemoglobin Sodium Potassium Chloride 96.6 L Carbon Dioxide BUN 30 H Creatinine 0.5 L Glucose 251 H POC Glucose 222 H Lactic Acid Calcium AST ALT Alkaline Phosphatase CK-MB (CK-2) CK-MB (CK-2) Rel Index Total Protein Albumin TSH Urine WBC (Auto) Salicylates 03/17/17 03/17/17 03/18/17 14:08 21:20 14:24 WBC RBC Hgb Hct MCV MCH RDW Plt Count Lymph % (Auto) [place] % (Auto) Eos % (Auto) Seg Neutrophils % Seg Neuts % (Manual) Lymphocytes % (Manual) Seg Neutrophils # Seg Neutrophils # Man Lymphocytes # (Manual) APTT POC ABG pH ABG pH POC ABG pCO2 POC ABG pO2 ABG pO2 ABG HCO3 ABG Base Excess ABG Hemoglobin VBG pH Oxyhemoglobin Sodium Potassium Chloride Carbon Dioxide BUN Creatinine Glucose POC Glucose 281 H 239 H 195 H Lactic Acid Calcium AST ALT Alkaline Phosphatase CK-MB (CK-2) CK-MB (CK-2) Rel Index Total Protein Albumin TSH Urine WBC (Auto) Salicylates 03/18/17 03/19/17 03/19/17 21:37 04:57 14:23 WBC RBC Hgb Hct MCV MCH RDW Plt Count Lymph % (Auto) [place] % (Auto) Eos % (Auto) Seg Neutrophils % Seg Neuts % (Manual) Lymphocytes % (Manual) Seg Neutrophils # Seg Neutrophils # Man Lymphocytes # (Manual) APTT POC ABG pH ABG pH POC ABG pCO2 POC ABG pO2 ABG pO2 ABG HCO3 ABG Base Excess ABG Hemoglobin VBG pH Oxyhemoglobin Sodium Potassium Chloride Carbon Dioxide BUN Creatinine Glucose POC Glucose 227 H 205 H 277 H Lactic Acid Calcium AST ALT Alkaline Phosphatase CK-MB (CK-2) CK-MB (CK-2) Rel Index Total Protein Albumin TSH Urine WBC (Auto) Salicylates 03/19/17 03/19/17 03/20/17 20:31 21:47 04:55 WBC RBC Hgb Hct MCV MCH RDW Plt Count Lymph % (Auto) [place] % (Auto) Eos % (Auto) Seg Neutrophils % Seg Neuts % (Manual) Lymphocytes % (Manual) Seg Neutrophils # Seg Neutrophils # Man Lymphocytes # (Manual) APTT POC ABG pH ABG pH POC ABG pCO2 POC ABG pO2 ABG pO2 ABG HCO3 ABG Base Excess ABG Hemoglobin VBG pH Oxyhemoglobin Sodium Potassium Chloride Carbon Dioxide BUN Creatinine Glucose POC Glucose 256 H 270 H 202 H Lactic Acid Calcium AST ALT Alkaline Phosphatase CK-MB (CK-2) CK-MB (CK-2) Rel Index Total Protein Albumin TSH Urine WBC (Auto) Salicylates 03/20/17 03/20/17 03/21/17 14:09 21:40 05:09 WBC RBC Hgb Hct MCV MCH RDW Plt Count Lymph % (Auto) [place] % (Auto) Eos % (Auto) Seg Neutrophils % Seg Neuts % (Manual) Lymphocytes % (Manual) Seg Neutrophils # Seg Neutrophils # Man Lymphocytes # (Manual) APTT POC ABG pH ABG pH POC ABG pCO2 POC ABG pO2 ABG pO2 ABG HCO3 ABG Base Excess ABG Hemoglobin VBG pH Oxyhemoglobin Sodium Potassium Chloride Carbon Dioxide BUN Creatinine Glucose POC Glucose 200 H 214 H 233 H Lactic Acid Calcium AST ALT Alkaline Phosphatase CK-MB (CK-2) CK-MB (CK-2) Rel Index Total Protein Albumin TSH Urine WBC (Auto) Salicylates 03/21/17 03/21/17 03/22/17 14:06 21:26 05:43 WBC RBC Hgb Hct MCV MCH RDW Plt Count Lymph % (Auto) [place] % (Auto) Eos % (Auto) Seg Neutrophils % Seg Neuts % (Manual) Lymphocytes % (Manual) Seg Neutrophils # Seg Neutrophils # Man Lymphocytes # (Manual) APTT POC ABG pH ABG pH POC ABG pCO2 POC ABG pO2 ABG pO2 ABG HCO3 ABG Base Excess ABG Hemoglobin VBG pH Oxyhemoglobin Sodium Potassium Chloride Carbon Dioxide BUN Creatinine Glucose POC Glucose 250 H 155 H 251 H Lactic Acid Calcium AST ALT Alkaline Phosphatase CK-MB (CK-2) CK-MB (CK-2) Rel Index Total Protein Albumin TSH Urine WBC (Auto) Salicylates 03/22/17 03/22/17 03/23/17 13:46 21:16 00:23 WBC RBC Hgb Hct MCV MCH RDW Plt Count Lymph % (Auto) [place] % (Auto) Eos % (Auto) Seg Neutrophils % Seg Neuts % (Manual) Lymphocytes % (Manual) Seg Neutrophils # Seg Neutrophils # Man Lymphocytes # (Manual) APTT POC ABG pH ABG pH POC ABG pCO2 POC ABG pO2 ABG pO2 ABG HCO3 ABG Base Excess ABG Hemoglobin VBG pH Oxyhemoglobin Sodium Potassium Chloride Carbon Dioxide BUN Creatinine Glucose POC Glucose 269 H 197 H 126 H Lactic Acid Calcium AST ALT Alkaline Phosphatase CK-MB (CK-2) CK-MB (CK-2) Rel Index Total Protein Albumin TSH Urine WBC (Auto) Salicylates 03/23/17 03/23/17 03/23/17 05:39 14:06 21:39 WBC RBC Hgb Hct MCV MCH RDW Plt Count Lymph % (Auto) [place] % (Auto) Eos % (Auto) Seg Neutrophils % Seg Neuts % (Manual) Lymphocytes % (Manual) Seg Neutrophils # Seg Neutrophils # Man Lymphocytes # (Manual) APTT POC ABG pH ABG pH POC ABG pCO2 POC ABG pO2 ABG pO2 ABG HCO3 ABG Base Excess ABG Hemoglobin VBG pH Oxyhemoglobin Sodium Potassium Chloride Carbon Dioxide BUN Creatinine Glucose POC Glucose 234 H 241 H 248 H Lactic Acid Calcium AST ALT Alkaline Phosphatase CK-MB (CK-2) CK-MB (CK-2) Rel Index Total Protein Albumin TSH Urine WBC (Auto) Salicylates 03/24/17 03/24/17 03/25/17 05:06 21:46 05:38 WBC RBC Hgb Hct MCV MCH RDW Plt Count Lymph % (Auto) [place] % (Auto) Eos % (Auto) Seg Neutrophils % Seg Neuts % (Manual) Lymphocytes % (Manual) Seg Neutrophils # Seg Neutrophils # Man Lymphocytes # (Manual) APTT POC ABG pH ABG pH POC ABG pCO2 POC ABG pO2 ABG pO2 ABG HCO3 ABG Base Excess ABG Hemoglobin VBG pH Oxyhemoglobin Sodium Potassium Chloride Carbon Dioxide BUN Creatinine Glucose POC Glucose 232 H 276 H 242 H Lactic Acid Calcium AST ALT Alkaline Phosphatase CK-MB (CK-2) CK-MB (CK-2) Rel Index Total Protein Albumin TSH Urine WBC (Auto) Salicylates 03/25/17 03/25/17 03/26/17 14:30 23:14 13:53 WBC RBC Hgb Hct MCV MCH RDW Plt Count Lymph % (Auto) [place] % (Auto) Eos % (Auto) Seg Neutrophils % Seg Neuts % (Manual) Lymphocytes % (Manual) Seg Neutrophils # Seg Neutrophils # Man Lymphocytes # (Manual) APTT POC ABG pH ABG pH POC ABG pCO2 POC ABG pO2 ABG pO2 ABG HCO3 ABG Base Excess ABG Hemoglobin VBG pH Oxyhemoglobin Sodium Potassium Chloride Carbon Dioxide BUN Creatinine Glucose POC Glucose 246 H 208 H 195 H Lactic Acid Calcium AST ALT Alkaline Phosphatase CK-MB (CK-2) CK-MB (CK-2) Rel Index Total Protein Albumin TSH Urine WBC (Auto) Salicylates 03/26/17 03/27/17 03/27/17 21:58 05:18 14:57 WBC RBC Hgb Hct MCV MCH RDW Plt Count Lymph % (Auto) Murray % (Auto) Eos % (Auto) Seg Neutrophils % Seg Neuts % (Manual) Lymphocytes % (Manual) Seg Neutrophils # Seg Neutrophils # Man Lymphocytes # (Manual) APTT POC ABG pH ABG pH POC ABG pCO2 POC ABG pO2 ABG pO2 ABG HCO3 ABG Base Excess ABG Hemoglobin VBG pH Oxyhemoglobin Sodium Potassium Chloride Carbon Dioxide BUN Creatinine Glucose POC Glucose 241 H 199 H 269 H Lactic Acid Calcium AST ALT Alkaline Phosphatase CK-MB (CK-2) CK-MB (CK-2) Rel Index Total Protein Albumin TSH Urine WBC (Auto) Salicylates 03/27/17 03/28/17 03/28/17 21:33 13:52 21:29 WBC RBC Hgb Hct MCV MCH RDW Plt Count Lymph % (Auto) Murray % (Auto) Eos % (Auto) Seg Neutrophils % Seg Neuts % (Manual) Lymphocytes % (Manual) Seg Neutrophils # Seg Neutrophils # Man Lymphocytes # (Manual) APTT POC ABG pH ABG pH POC ABG pCO2 POC ABG pO2 ABG pO2 ABG HCO3 ABG Base Excess ABG Hemoglobin VBG pH Oxyhemoglobin Sodium Potassium Chloride Carbon Dioxide BUN Creatinine Glucose POC Glucose 214 H 243 H 286 H Lactic Acid Calcium AST ALT Alkaline Phosphatase CK-MB (CK-2) CK-MB (CK-2) Rel Index Total Protein Albumin TSH Urine WBC (Auto) Salicylates 03/29/17 03/29/17 03/29/17 04:32 04:32 13:58 WBC RBC Hgb 10.6 L Hct 32.9 L MCV 78 L MCH 25 L RDW 17.6 H Plt Count Lymph % (Auto) 38.0 H Murray % (Auto) 9.7 H Eos % (Auto) Seg Neutrophils % Seg Neuts % (Manual) Lymphocytes % (Manual) Seg Neutrophils # Seg Neutrophils # Man Lymphocytes # (Manual) APTT POC ABG pH ABG pH POC ABG pCO2 POC ABG pO2 ABG pO2 ABG HCO3 ABG Base Excess ABG Hemoglobin VBG pH Oxyhemoglobin Sodium 132 L Potassium Chloride 94.0 L Carbon Dioxide BUN 28 H Creatinine 0.5 L Glucose 236 H POC Glucose 171 H Lactic Acid Calcium AST ALT 71 H Alkaline Phosphatase 391 H CK-MB (CK-2) CK-MB (CK-2) Rel Index Total Protein 8.3 H Albumin 2.9 L TSH Urine WBC (Auto) Salicylates 03/29/17 03/30/17 03/30/17 20:59 06:07 11:52 WBC RBC Hgb Hct MCV MCH RDW Plt Count Lymph % (Auto) [place] % (Auto) Eos % (Auto) Seg Neutrophils % Seg Neuts % (Manual) Lymphocytes % (Manual) Seg Neutrophils # Seg Neutrophils # Man Lymphocytes # (Manual) APTT POC ABG pH ABG pH POC ABG pCO2 POC ABG pO2 ABG pO2 ABG HCO3 ABG Base Excess ABG Hemoglobin VBG pH Oxyhemoglobin Sodium Potassium Chloride Carbon Dioxide BUN Creatinine Glucose POC Glucose 215 H 259 H 197 H Lactic Acid Calcium AST ALT Alkaline Phosphatase CK-MB (CK-2) CK-MB (CK-2) Rel Index Total Protein Albumin TSH Urine WBC (Auto) Salicylates 03/30/17 03/31/17 03/31/17 21:34 05:42 14:34 WBC RBC Hgb Hct MCV MCH RDW Plt Count Lymph % (Auto) [place] % (Auto) Eos % (Auto) Seg Neutrophils % Seg Neuts % (Manual) Lymphocytes % (Manual) Seg Neutrophils # Seg Neutrophils # Man Lymphocytes # (Manual) APTT POC ABG pH ABG pH POC ABG pCO2 POC ABG pO2 ABG pO2 ABG HCO3 ABG Base Excess ABG Hemoglobin VBG pH Oxyhemoglobin Sodium Potassium Chloride Carbon Dioxide BUN Creatinine Glucose POC Glucose 207 H 184 H 213 H Lactic Acid Calcium AST ALT Alkaline Phosphatase CK-MB (CK-2) CK-MB (CK-2) Rel Index Total Protein Albumin TSH Urine WBC (Auto) Salicylates 03/31/17 04/01/17 04/01/17 21:32 05:53 13:48 WBC RBC Hgb Hct MCV MCH RDW Plt Count Lymph % (Auto) [place] % (Auto) Eos % (Auto) Seg Neutrophils % Seg Neuts % (Manual) Lymphocytes % (Manual) Seg Neutrophils # Seg Neutrophils # Man Lymphocytes # (Manual) APTT POC ABG pH ABG pH POC ABG pCO2 POC ABG pO2 ABG pO2 ABG HCO3 ABG Base Excess ABG Hemoglobin VBG pH Oxyhemoglobin Sodium Potassium Chloride Carbon Dioxide BUN Creatinine Glucose POC Glucose 249 H 225 H 256 H Lactic Acid Calcium AST ALT Alkaline Phosphatase CK-MB (CK-2) CK-MB (CK-2) Rel Index Total Protein Albumin TSH Urine WBC (Auto) Salicylates 04/01/17 04/02/17 04/02/17 21:34 05:32 14:05 WBC RBC Hgb Hct MCV MCH RDW Plt Count Lymph % (Auto) [place] % (Auto) Eos % (Auto) Seg Neutrophils % Seg Neuts % (Manual) Lymphocytes % (Manual) Seg Neutrophils # Seg Neutrophils # Man Lymphocytes # (Manual) APTT POC ABG pH ABG pH POC ABG pCO2 POC ABG pO2 ABG pO2 ABG HCO3 ABG Base Excess ABG Hemoglobin VBG pH Oxyhemoglobin Sodium Potassium Chloride Carbon Dioxide BUN Creatinine Glucose POC Glucose 292 H 220 H 187 H Lactic Acid Calcium AST ALT Alkaline Phosphatase CK-MB (CK-2) CK-MB (CK-2) Rel Index Total Protein Albumin TSH Urine WBC (Auto) Salicylates 04/02/17 04/03/17 04/03/17 21:57 04:49 14:12 WBC RBC Hgb Hct MCV MCH RDW Plt Count Lymph % (Auto) [place] % (Auto) Eos % (Auto) Seg Neutrophils % Seg Neuts % (Manual) Lymphocytes % (Manual) Seg Neutrophils # Seg Neutrophils # Man Lymphocytes # (Manual) APTT POC ABG pH ABG pH POC ABG pCO2 POC ABG pO2 ABG pO2 ABG HCO3 ABG Base Excess ABG Hemoglobin VBG pH Oxyhemoglobin Sodium Potassium Chloride Carbon Dioxide BUN Creatinine Glucose POC Glucose 285 H 256 H 197 H Lactic Acid Calcium AST ALT Alkaline Phosphatase CK-MB (CK-2) CK-MB (CK-2) Rel Index Total Protein Albumin TSH Urine WBC (Auto) Salicylates 04/03/17 04/04/17 04/04/17 21:11 05:20 13:18 WBC RBC Hgb Hct MCV MCH RDW Plt Count Lymph % (Auto) [place] % (Auto) Eos % (Auto) Seg Neutrophils % Seg Neuts % (Manual) Lymphocytes % (Manual) Seg Neutrophils # Seg Neutrophils # Man Lymphocytes # (Manual) APTT POC ABG pH ABG pH POC ABG pCO2 POC ABG pO2 ABG pO2 ABG HCO3 ABG Base Excess ABG Hemoglobin VBG pH Oxyhemoglobin Sodium Potassium Chloride Carbon Dioxide BUN Creatinine Glucose POC Glucose 166 H 228 H 252 H Lactic Acid Calcium AST ALT Alkaline Phosphatase CK-MB (CK-2) CK-MB (CK-2) Rel Index Total Protein Albumin TSH Urine WBC (Auto) Salicylates 04/04/17 04/05/17 04/05/17 21:51 06:14 09:54 WBC RBC Hgb Hct MCV MCH RDW Plt Count Lymph % (Auto) [place] % (Auto) Eos % (Auto) Seg Neutrophils % Seg Neuts % (Manual) Lymphocytes % (Manual) Seg Neutrophils # Seg Neutrophils # Man Lymphocytes # (Manual) APTT POC ABG pH ABG pH POC ABG pCO2 POC ABG pO2 ABG pO2 ABG HCO3 ABG Base Excess ABG Hemoglobin VBG pH Oxyhemoglobin Sodium Potassium Chloride Carbon Dioxide BUN Creatinine Glucose POC Glucose 252 H 152 H 181 H Lactic Acid Calcium AST ALT Alkaline Phosphatase CK-MB (CK-2) CK-MB (CK-2) Rel Index Total Protein Albumin TSH Urine WBC (Auto) Salicylates 04/05/17 04/05/17 04/05/17 14:49 17:34 21:38 WBC RBC Hgb Hct MCV MCH RDW Plt Count Lymph % (Auto) [place] % (Auto) Eos % (Auto) Seg Neutrophils % Seg Neuts % (Manual) Lymphocytes % (Manual) Seg Neutrophils # Seg Neutrophils # Man Lymphocytes # (Manual) APTT POC ABG pH ABG pH POC ABG pCO2 POC ABG pO2 ABG pO2 ABG HCO3 ABG Base Excess ABG Hemoglobin VBG pH Oxyhemoglobin Sodium Potassium Chloride Carbon Dioxide BUN Creatinine Glucose POC Glucose 219 H 268 H 278 H Lactic Acid Calcium AST ALT Alkaline Phosphatase CK-MB (CK-2) CK-MB (CK-2) Rel Index Total Protein Albumin TSH Urine WBC (Auto) Salicylates 04/06/17 04/06/17 04/07/17 15:04 22:14 05:09 WBC RBC Hgb Hct MCV MCH RDW Plt Count Lymph % (Auto) [place] % (Auto) Eos % (Auto) Seg Neutrophils % Seg Neuts % (Manual) Lymphocytes % (Manual) Seg Neutrophils # Seg Neutrophils # Man Lymphocytes # (Manual) APTT POC ABG pH ABG pH POC ABG pCO2 POC ABG pO2 ABG pO2 ABG HCO3 ABG Base Excess ABG Hemoglobin VBG pH Oxyhemoglobin Sodium Potassium Chloride Carbon Dioxide BUN Creatinine Glucose POC Glucose 285 H 106 H 334 H Lactic Acid Calcium AST ALT Alkaline Phosphatase CK-MB (CK-2) CK-MB (CK-2) Rel Index Total Protein Albumin TSH Urine WBC (Auto) Salicylates 04/07/17 04/07/17 04/08/17 14:45 21:48 05:28 WBC RBC Hgb Hct MCV MCH RDW Plt Count Lymph % (Auto) [place] % (Auto) Eos % (Auto) Seg Neutrophils % Seg Neuts % (Manual) Lymphocytes % (Manual) Seg Neutrophils # Seg Neutrophils # Man Lymphocytes # (Manual) APTT POC ABG pH ABG pH POC ABG pCO2 POC ABG pO2 ABG pO2 ABG HCO3 ABG Base Excess ABG Hemoglobin VBG pH Oxyhemoglobin Sodium Potassium Chloride Carbon Dioxide BUN Creatinine Glucose POC Glucose 173 H 304 H 314 H Lactic Acid Calcium AST ALT Alkaline Phosphatase CK-MB (CK-2) CK-MB (CK-2) Rel Index Total Protein Albumin TSH Urine WBC (Auto) Salicylates 04/08/17 04/08/17 04/08/17 15:57 16:17 22:21 WBC RBC Hgb Hct MCV MCH RDW Plt Count Lymph % (Auto) [place] % (Auto) Eos % (Auto) Seg Neutrophils % Seg Neuts % (Manual) Lymphocytes % (Manual) Seg Neutrophils # Seg Neutrophils # Man Lymphocytes # (Manual) APTT POC ABG pH ABG pH POC ABG pCO2 POC ABG pO2 ABG pO2 ABG HCO3 ABG Base Excess ABG Hemoglobin VBG pH Oxyhemoglobin Sodium Potassium Chloride Carbon Dioxide BUN Creatinine Glucose POC Glucose 356 H 337 H 323 H Lactic Acid Calcium AST ALT Alkaline Phosphatase CK-MB (CK-2) CK-MB (CK-2) Rel Index Total Protein Albumin TSH Urine WBC (Auto) Salicylates 04/09/17 04/09/17 04/09/17 06:19 15:30 21:52 WBC RBC Hgb Hct MCV MCH RDW Plt Count Lymph % (Auto) [place] % (Auto) Eos % (Auto) Seg Neutrophils % Seg Neuts % (Manual) Lymphocytes % (Manual) Seg Neutrophils # Seg Neutrophils # Man Lymphocytes # (Manual) APTT POC ABG pH ABG pH POC ABG pCO2 POC ABG pO2 ABG pO2 ABG HCO3 ABG Base Excess ABG Hemoglobin VBG pH Oxyhemoglobin Sodium Potassium Chloride Carbon Dioxide BUN Creatinine Glucose POC Glucose 340 H 332 H 341 H Lactic Acid Calcium AST ALT Alkaline Phosphatase CK-MB (CK-2) CK-MB (CK-2) Rel Index Total Protein Albumin TSH Urine WBC (Auto) Salicylates 04/10/17 04/10/17 04/10/17 01:53 05:33 17:40 WBC RBC Hgb Hct MCV MCH RDW Plt Count Lymph % (Auto) [place] % (Auto) Eos % (Auto) Seg Neutrophils % Seg Neuts % (Manual) Lymphocytes % (Manual) Seg Neutrophils # Seg Neutrophils # Man Lymphocytes # (Manual) APTT POC ABG pH ABG pH POC ABG pCO2 POC ABG pO2 ABG pO2 ABG HCO3 ABG Base Excess ABG Hemoglobin VBG pH Oxyhemoglobin Sodium Potassium Chloride Carbon Dioxide BUN Creatinine Glucose POC Glucose 261 H 277 H 304 H Lactic Acid Calcium AST ALT Alkaline Phosphatase CK-MB (CK-2) CK-MB (CK-2) Rel Index Total Protein Albumin TSH Urine WBC (Auto) Salicylates 04/10/17 04/11/17 04/11/17 21:29 05:28 14:02 WBC RBC Hgb Hct MCV MCH RDW Plt Count Lymph % (Auto) [place] % (Auto) Eos % (Auto) Seg Neutrophils % Seg Neuts % (Manual) Lymphocytes % (Manual) Seg Neutrophils # Seg Neutrophils # Man Lymphocytes # (Manual) APTT POC ABG pH ABG pH POC ABG pCO2 POC ABG pO2 ABG pO2 ABG HCO3 ABG Base Excess ABG Hemoglobin VBG pH Oxyhemoglobin Sodium Potassium Chloride Carbon Dioxide BUN Creatinine Glucose POC Glucose 361 H 204 H 236 H Lactic Acid Calcium AST ALT Alkaline Phosphatase CK-MB (CK-2) CK-MB (CK-2) Rel Index Total Protein Albumin TSH Urine WBC (Auto) Salicylates 04/11/17 04/12/17 04/12/17 21:43 05:00 11:53 WBC RBC Hgb Hct MCV MCH RDW Plt Count Lymph % (Auto) [place] % (Auto) Eos % (Auto) Seg Neutrophils % Seg Neuts % (Manual) Lymphocytes % (Manual) Seg Neutrophils # Seg Neutrophils # Man Lymphocytes # (Manual) APTT POC ABG pH ABG pH POC ABG pCO2 POC ABG pO2 ABG pO2 ABG HCO3 ABG Base Excess ABG Hemoglobin VBG pH Oxyhemoglobin Sodium Potassium Chloride Carbon Dioxide BUN Creatinine Glucose POC Glucose 287 H 294 H 265 H Lactic Acid Calcium AST ALT Alkaline Phosphatase CK-MB (CK-2) CK-MB (CK-2) Rel Index Total Protein Albumin TSH Urine WBC (Auto) Salicylates 04/12/17 04/12/17 04/13/17 21:21 23:44 06:05 WBC RBC Hgb Hct MCV MCH RDW Plt Count Lymph % (Auto) [place] % (Auto) Eos % (Auto) Seg Neutrophils % Seg Neuts % (Manual) Lymphocytes % (Manual) Seg Neutrophils # Seg Neutrophils # Man Lymphocytes # (Manual) APTT POC ABG pH ABG pH POC ABG pCO2 POC ABG pO2 ABG pO2 ABG HCO3 ABG Base Excess ABG Hemoglobin VBG pH Oxyhemoglobin Sodium Potassium Chloride Carbon Dioxide BUN Creatinine Glucose POC Glucose 289 H 348 H 326 H Lactic Acid Calcium AST ALT Alkaline Phosphatase CK-MB (CK-2) CK-MB (CK-2) Rel Index Total Protein Albumin TSH Urine WBC (Auto) Salicylates 04/13/17 04/13/17 04/14/17 13:54 21:15 05:49 WBC RBC Hgb Hct MCV MCH RDW Plt Count Lymph % (Auto) [place] % (Auto) Eos % (Auto) Seg Neutrophils % Seg Neuts % (Manual) Lymphocytes % (Manual) Seg Neutrophils # Seg Neutrophils # Man Lymphocytes # (Manual) APTT POC ABG pH ABG pH POC ABG pCO2 POC ABG pO2 ABG pO2 ABG HCO3 ABG Base Excess ABG Hemoglobin VBG pH Oxyhemoglobin Sodium Potassium Chloride Carbon Dioxide BUN Creatinine Glucose POC Glucose 326 H 263 H 319 H Lactic Acid Calcium AST ALT Alkaline Phosphatase CK-MB (CK-2) CK-MB (CK-2) Rel Index Total Protein Albumin TSH Urine WBC (Auto) Salicylates 04/14/17 04/14/17 04/15/17 13:26 23:13 14:24 WBC RBC Hgb Hct MCV MCH RDW Plt Count Lymph % (Auto) [place] % (Auto) Eos % (Auto) Seg Neutrophils % Seg Neuts % (Manual) Lymphocytes % (Manual) Seg Neutrophils # Seg Neutrophils # Man Lymphocytes # (Manual) APTT POC ABG pH ABG pH POC ABG pCO2 POC ABG pO2 ABG pO2 ABG HCO3 ABG Base Excess ABG Hemoglobin VBG pH Oxyhemoglobin Sodium Potassium Chloride Carbon Dioxide BUN Creatinine Glucose POC Glucose 207 H 365 H 308 H Lactic Acid Calcium AST ALT Alkaline Phosphatase CK-MB (CK-2) CK-MB (CK-2) Rel Index Total Protein Albumin TSH Urine WBC (Auto) Salicylates 04/15/17 04/15/17 04/15/17 21:00 22:18 23:12 WBC RBC Hgb Hct MCV MCH RDW Plt Count Lymph % (Auto) [place] % (Auto) Eos % (Auto) Seg Neutrophils % Seg Neuts % (Manual) Lymphocytes % (Manual) Seg Neutrophils # Seg Neutrophils # Man Lymphocytes # (Manual) APTT POC ABG pH ABG pH POC ABG pCO2 POC ABG pO2 ABG pO2 ABG HCO3 ABG Base Excess ABG Hemoglobin VBG pH Oxyhemoglobin Sodium Potassium Chloride Carbon Dioxide BUN Creatinine Glucose POC Glucose 407 H 287 H 325 H Lactic Acid Calcium AST ALT Alkaline Phosphatase CK-MB (CK-2) CK-MB (CK-2) Rel Index Total Protein Albumin TSH Urine WBC (Auto) Salicylates 0104/16/17 04/16/17 05:30 10:07 14:26 WBC RBC Hgb Hct MCV MCH RDW Plt Count Lymph % (Auto) [place] % (Auto) Eos % (Auto) Seg Neutrophils % Seg Neuts % (Manual) Lymphocytes % (Manual) Seg Neutrophils # Seg Neutrophils # Man Lymphocytes # (Manual) APTT POC ABG pH ABG pH POC ABG pCO2 POC ABG pO2 ABG pO2 ABG HCO3 ABG Base Excess ABG Hemoglobin VBG pH Oxyhemoglobin Sodium Potassium Chloride Carbon Dioxide BUN Creatinine Glucose POC Glucose 304 H 217 H 344 H Lactic Acid Calcium AST ALT Alkaline Phosphatase CK-MB (CK-2) CK-MB (CK-2) Rel Index Total Protein Albumin TSH Urine WBC (Auto) Salicylates 04/16/17 04/17/17 04/17/17 21:25 05:12 14:19 WBC RBC Hgb Hct MCV MCH RDW Plt Count Lymph % (Auto) [place] % (Auto) Eos % (Auto) Seg Neutrophils % Seg Neuts % (Manual) Lymphocytes % (Manual) Seg Neutrophils # Seg Neutrophils # Man Lymphocytes # (Manual) APTT POC ABG pH ABG pH POC ABG pCO2 POC ABG pO2 ABG pO2 ABG HCO3 ABG Base Excess ABG Hemoglobin VBG pH Oxyhemoglobin Sodium Potassium Chloride Carbon Dioxide BUN Creatinine Glucose POC Glucose 305 H 233 H 324 H Lactic Acid Calcium AST ALT Alkaline Phosphatase CK-MB (CK-2) CK-MB (CK-2) Rel Index Total Protein Albumin TSH Urine WBC (Auto) Salicylates 04/17/17 04/18/17 04/18/17 21:42 06:21 14:08 WBC RBC Hgb Hct MCV MCH RDW Plt Count Lymph % (Auto) [place] % (Auto) Eos % (Auto) Seg Neutrophils % Seg Neuts % (Manual) Lymphocytes % (Manual) Seg Neutrophils # Seg Neutrophils # Man Lymphocytes # (Manual) APTT POC ABG pH ABG pH POC ABG pCO2 POC ABG pO2 ABG pO2 ABG HCO3 ABG Base Excess ABG Hemoglobin VBG pH Oxyhemoglobin Sodium Potassium Chloride Carbon Dioxide BUN Creatinine Glucose POC Glucose 270 H 308 H 290 H Lactic Acid Calcium AST ALT Alkaline Phosphatase CK-MB (CK-2) CK-MB (CK-2) Rel Index Total Protein Albumin TSH Urine WBC (Auto) Salicylates 04/18/17 04/19/1704/19/18 21:50 05:20 13:59 WBC RBC Hgb Hct MCV MCH RDW Plt Count Lymph % (Auto) [place] % (Auto) Eos % (Auto) Seg Neutrophils % Seg Neuts % (Manual) Lymphocytes % (Manual) Seg Neutrophils # Seg Neutrophils # Man Lymphocytes # (Manual) APTT POC ABG pH ABG pH POC ABG pCO2 POC ABG pO2 ABG pO2 ABG HCO3 ABG Base Excess ABG Hemoglobin VBG pH Oxyhemoglobin Sodium Potassium Chloride Carbon Dioxide BUN Creatinine Glucose POC Glucose 167 H 372 H 321 H Lactic Acid Calcium AST ALT Alkaline Phosphatase CK-MB (CK-2) CK-MB (CK-2) Rel Index Total Protein Albumin TSH Urine WBC (Auto) Salicylates 04/19/17 04/20/17 04/20/17 21:16 14:18 21:34 WBC RBC Hgb Hct MCV MCH RDW Plt Count Lymph % (Auto) [place] % (Auto) Eos % (Auto) Seg Neutrophils % Seg Neuts % (Manual) Lymphocytes % (Manual) Seg Neutrophils # Seg Neutrophils # Man Lymphocytes # (Manual) APTT POC ABG pH ABG pH POC ABG pCO2 POC ABG pO2 ABG pO2 ABG HCO3 ABG Base Excess ABG Hemoglobin VBG pH Oxyhemoglobin Sodium Potassium Chloride Carbon Dioxide BUN Creatinine Glucose POC Glucose 182 H 218 H 121 H Lactic Acid Calcium AST ALT Alkaline Phosphatase CK-MB (CK-2) CK-MB (CK-2) Rel Index Total Protein Albumin TSH Urine WBC (Auto) Salicylates 04/21/17 04/21/17 04/21/17 00:08 05:16 12:41 WBC RBC Hgb Hct MCV MCH RDW Plt Count Lymph % (Auto) [place] % (Auto) Eos % (Auto) Seg Neutrophils % Seg Neuts % (Manual) Lymphocytes % (Manual) Seg Neutrophils # Seg Neutrophils # Man Lymphocytes # (Manual) APTT POC ABG pH ABG pH POC ABG pCO2 POC ABG pO2 ABG pO2 ABG HCO3 ABG Base Excess ABG Hemoglobin VBG pH Oxyhemoglobin Sodium Potassium Chloride Carbon Dioxide BUN Creatinine Glucose POC Glucose 128 H 120 H 216 H Lactic Acid Calcium AST ALT Alkaline Phosphatase CK-MB (CK-2) CK-MB (CK-2) Rel Index Total Protein Albumin TSH Urine WBC (Auto) Salicylates 04/21/17 04/22/17 04/22/17 23:40 14:12 23:38 WBC RBC Hgb Hct MCV MCH RDW Plt Count Lymph % (Auto) [place] % (Auto) Eos % (Auto) Seg Neutrophils % Seg Neuts % (Manual) Lymphocytes % (Manual) Seg Neutrophils # Seg Neutrophils # Man Lymphocytes # (Manual) APTT POC ABG pH ABG pH POC ABG pCO2 POC ABG pO2 ABG pO2 ABG HCO3 ABG Base Excess ABG Hemoglobin VBG pH Oxyhemoglobin Sodium Potassium Chloride Carbon Dioxide BUN Creatinine Glucose POC Glucose 157 H 242 H 117 H Lactic Acid Calcium AST ALT Alkaline Phosphatase CK-MB (CK-2) CK-MB (CK-2) Rel Index Total Protein Albumin TSH Urine WBC (Auto) Salicylates 04/23/17 04/23/17 04/24/17 05:18 14:01 03:24 WBC RBC Hgb Hct MCV MCH RDW Plt Count Lymph % (Auto) [place] % (Auto) Eos % (Auto) Seg Neutrophils % Seg Neuts % (Manual) Lymphocytes % (Manual) Seg Neutrophils # Seg Neutrophils # Man Lymphocytes # (Manual) APTT POC ABG pH ABG pH POC ABG pCO2 POC ABG pO2 ABG pO2 ABG HCO3 ABG Base Excess ABG Hemoglobin VBG pH Oxyhemoglobin Sodium Potassium Chloride Carbon Dioxide BUN Creatinine Glucose POC Glucose 163 H 57 L 177 H Lactic Acid Calcium AST ALT Alkaline Phosphatase CK-MB (CK-2) CK-MB (CK-2) Rel Index Total Protein Albumin TSH Urine WBC (Auto) Salicylates 04/24/17 04/24/17 04/24/17 04:00 04:00 06:33 WBC RBC Hgb 9.9 L Hct 30.0 L MCV 79 L MCH 26 L RDW 17.1 H Plt Count 625 H Lymph % (Auto) [place] % (Auto) 8.4 H Eos % (Auto) Seg Neutrophils % Seg Neuts % (Manual) Lymphocytes % (Manual) Seg Neutrophils # Seg Neutrophils # Man Lymphocytes # (Manual) APTT POC ABG pH ABG pH POC ABG pCO2 POC ABG pO2 ABG pO2 ABG HCO3 ABG Base Excess ABG Hemoglobin VBG pH Oxyhemoglobin Sodium 136 L Potassium Chloride 94.9 L Carbon Dioxide BUN 40 H Creatinine 0.6 L Glucose 176 H POC Glucose 230 H Lactic Acid Calcium AST 67 H ALT Alkaline Phosphatase 294 H CK-MB (CK-2) CK-MB (CK-2) Rel Index Total Protein 9.0 H Albumin 2.5 L TSH Urine WBC (Auto) Salicylates
[2017-04-25] MEDS ORDERED: D50W (25GM) Syringe IV ONE ×2 (00:25→01:42)
[2017-04-25 03:25] LABS: Basophils % (Auto) 0.5 % (0.0-1.8); Eosinophils # (Auto) 0.1 K/mm3 (0.0-0.4); Eosinophils % (Auto) 0.8 % (0.0-4.3); Hematocrit 27.9 % (35.5-45.6); Lymphocytes # (Auto) 2.2 K/mm3 (1.2-5.4); Mean Corpuscular HGB Conc 32 % (32-34); Mean Corpuscular Volume 79 fl (84-94); Monocytes % (Auto) 10.4 % (0.0-7.3); Platelet Count 574 K/mm3 (140-440); Red Blood Count 3.54 M/mm3 (3.65-5.03); Red Cell Distribution Width 17.5 % (13.2-15.2)
[2017-04-25 03:26] LABS: Mean Corpuscular Hemoglobin 26 pg (28-32)
[2017-04-25 03:38] LABS: Alanine Aminotransferase 36 units/L (7-56); Albumin 2.7 g/dL (3.9-5); BUN/Creatinine Ratio 56; Blood Urea Nitrogen 39 mg/dL (9-20); Calcium 8.9 mg/dL (8.4-10.2); Hemolysis Index 0
--- NOTE | 2017-04-25 03:50 | XRay Report ---
FINAL REPORT EXAM: XR CHEST 1V AP HISTORY: fever COMPARISON: None available. FINDINGS: Frontal view(s) of the chest obtained. Heart normal in size. ETT in satisfactory position. Distal tip approximately 4.3 centimeters in the [place]. NG tube is present. Distal tip projects over the proximal stomach. Patchy airspace opacities mid to lower lungs concerning for pneumonia. No large effusion or pneumothorax.. IMPRESSION: Findings concerning for bilateral pneumonia. ETT and NG tube are in gross satisfactory position.
[2017-04-25] MEDS: HumuLIN R SUB-Q SCH ×3 (04:49→22:53)
[2017-04-25] MEDS: SYNTHROID PO SCH (06:50)
[2017-04-25] MEDS: PEPCID PO SCH ×2 (09:21→22:53)
[2017-04-25] MEDS: HEPARIN SUB-Q SCH ×2 (09:21→22:54)
--- NOTE | 2017-04-25 11:07 | Progress Note ---
Assessment and Plan 51 y/o male found down, concern for sepsis and now encephalopathic requiring mechanical ventilation. No new recommendations for today. Please see below. 1. continue supportive care 2. 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 I am aware that he is an AND but trach will not fix this problem and is not in my professional opinion the right thing to do for this patient. Most likely he will never be weaned from the vent and will remain in a persistent vegatative state. 3. Overall prognosis continues to be poor. 4. Will not check labs 5. Vitals should be qshift 6. This patient's possibility of awakening from this persistent vegatative is unlikely. The current status is that there has been paper work filed to obtain guardianship so that end of life decisions can be made. Supportive care is reasonable but checking daily labs and doing other invasive things to this patient I do not feel is morally and ethically appropriate. 7. Currently patient does not have IV access and is not requiring any medical therapy. Will not place another one at this time. 8. Per CM, going to court on 05/03/17 for Guardianship. Subjective Date of service: 04/25/17 Principal diagnosis: Acute respiratory failure,encephalopathy Interval history: No acute events. Mental status is unchanged. Not responsive. Tolerating PSV thus far this am, but will still have apnic spells. Objective Vital Signs - 12hr 04/24/17 04/25/17 04/25/17 23:33 00:00 03:31 Temperature 98.0 F Pulse Rate 81 81 Pulse Rate [ 82 Left] Respiratory 12 Rate Blood Pressure 102/66 112/71 109/69 O2 Sat by Pulse 100 96 100 Oximetry 04/25/17 04/25/17 04/25/17 04:45 07:23 08:18 Temperature 98.3 F 97.9 F Pulse Rate 81 86 Pulse Rate [ 72 Left] Respiratory 12 16 Rate Blood Pressure 108/66 121/80 O2 Sat by Pulse 100 98 Oximetry 04/25/17 08:25 Temperature Pulse Rate Pulse Rate [ Left] Respiratory Rate Blood Pressure O2 Sat by Pulse 100 Oximetry Constitutional: no acute distress, alert Eyes: non-icteric ENT: oropharynx moist, other (ETT in position) Neck: supple, no JVD Effort: normal Ascultation: Bilateral: clear, diminished breath sounds Cardiovascular: regular rate and rhythm (no mrg) Gastrointestinal: normoactive bowel sounds, soft, non-tender, non-distended Integumentary: normal Extremities: no cyanosis, no edema, pink and warm Neurologic: pupils equal and round, other (not following commands,mild response to pain) Psychiatric: other (unable to obtain) CBC and BMP: 04/25/17 02:55 04/25/17 02:55 ABG, PT/INR, D-dimer: ABG POC ABG pH 7.442 (7.35-7.45) 01/31/17 18:55 ABG pH 7.420 pH Units (7.350-7.450) 01/17/17 04:35 POC ABG pCO2 32.8 (35-45) L 01/31/17 18:55 ABG pCO2 34.5 mm Hg 01/17/17 04:35 POC ABG pO2 82 (80-105) 01/31/17 18:55 ABG pO2 160.3 mm Hg (80.0-90.0) H 01/17/17 04:35 POC ABG HCO3 22.4 01/31/17 18:55 POC ABG Total CO2 23 01/31/17 18:55 POC ABG O2 Sat 97 01/31/17 18:55 ABG O2 Saturation 99.0 % (95.0-99.0) 01/17/17 04:35 PT/INR, D-dimer PT 14.1 Sec. (12.2-14.9) 01/17/17 04:10 INR 1.04 (0.87-1.13) 01/17/17 04:10 Abnormal lab findings: Abnormal Labs 01/09/17 01/09/17 01/09/17 10:16 10:16 10:16 WBC RBC Hgb 9.7 L Hct 28.4 L MCV 76 L MCH 26 L RDW 17.2 H Plt Count 448 H Lymph % (Auto) [place] % (Auto) Eos % (Auto) [place] # Seg Neutrophils % 79.5 H Seg Neuts % (Manual) Lymphocytes % (Manual) Seg Neutrophils # Seg Neutrophils # Man Lymphocytes # (Manual) APTT 39.6 H POC ABG pH ABG pH POC ABG pCO2 POC ABG pO2 ABG pO2 ABG HCO3 ABG Base Excess ABG Hemoglobin VBG pH Oxyhemoglobin Sodium 132 L Potassium Chloride 96.7 L Carbon Dioxide 21 L BUN 34 H Creatinine Glucose POC Glucose Lactic Acid Calcium 8.3 L AST ALT Alkaline Phosphatase 151 H CK-MB (CK-2) 7.1 H CK-MB (CK-2) Rel Index 5.2 H Total Protein Albumin 3.3 L TSH Urine WBC (Auto) Salicylates 01/09/17 01/09/17 01/09/17 10:16 10:16 10:16 WBC RBC Hgb Hct MCV MCH RDW Plt Count Lymph % (Auto) [place] % (Auto) Eos % (Auto) [place] # Seg Neutrophils % Seg Neuts % (Manual) Lymphocytes % (Manual) Seg Neutrophils # Seg Neutrophils # Man Lymphocytes # (Manual) APTT POC ABG pH ABG pH POC ABG pCO2 POC ABG pO2 ABG pO2 ABG HCO3 ABG Base Excess ABG Hemoglobin VBG pH 7.284 L Oxyhemoglobin Sodium Potassium Chloride Carbon Dioxide BUN Creatinine Glucose POC Glucose Lactic Acid Calcium AST ALT Alkaline Phosphatase CK-MB (CK-2) CK-MB (CK-2) Rel Index Total Protein Albumin TSH 52.800 H Urine WBC (Auto) Salicylates < 0.3 L 01/09/17 01/09/17 01/09/17 10:23 11:14 12:49 WBC RBC Hgb Hct MCV MCH RDW Plt Count Lymph % (Auto) [place] % (Auto) Eos % (Auto) [place] # Seg Neutrophils % Seg Neuts % (Manual) Lymphocytes % (Manual) Seg Neutrophils # Seg Neutrophils # Man Lymphocytes # (Manual) APTT POC ABG pH ABG pH POC ABG pCO2 POC ABG pO2 643 H ABG pO2 ABG HCO3 ABG Base Excess ABG Hemoglobin VBG pH Oxyhemoglobin Sodium Potassium Chloride Carbon Dioxide BUN Creatinine Glucose POC Glucose < 40 L Lactic Acid Calcium AST ALT Alkaline Phosphatase CK-MB (CK-2) CK-MB (CK-2) Rel Index Total Protein Albumin TSH Urine WBC (Auto) 61.0 H Salicylates 01/09/17 01/09/17 01/09/17 13:13 14:21 15:09 WBC RBC Hgb Hct MCV MCH RDW Plt Count Lymph % (Auto) [place] % (Auto) Eos % (Auto) [place] # Seg Neutrophils % Seg Neuts % (Manual) Lymphocytes % (Manual) Seg Neutrophils # Seg Neutrophils # Man Lymphocytes # (Manual) APTT POC ABG pH ABG pH POC ABG pCO2 POC ABG pO2 ABG pO2 ABG HCO3 ABG Base Excess ABG Hemoglobin VBG pH Oxyhemoglobin Sodium Potassium Chloride Carbon Dioxide BUN Creatinine Glucose POC Glucose 128 H 65 L 120 H Lactic Acid Calcium AST ALT Alkaline Phosphatase CK-MB (CK-2) CK-MB (CK-2) Rel Index Total Protein Albumin TSH Urine WBC (Auto) Salicylates 01/09/17 01/09/17 01/10/17 16:28 17:14 04:30 WBC 24.1 H RBC 3.38 L Hgb 8.5 L Hct 26.0 L MCV 77 L MCH 25 L RDW 17.9 H Plt Count 474 H Lymph % (Auto) [place] % (Auto) Eos % (Auto) [place] # Seg Neutrophils % Seg Neuts % (Manual) 88.0 H Lymphocytes % (Manual) 4.0 L Seg Neutrophils # Seg Neutrophils # Man 21.2 H Lymphocytes # (Manual) 1.0 L APTT POC ABG pH ABG pH POC ABG pCO2 POC ABG pO2 ABG pO2 ABG HCO3 ABG Base Excess ABG Hemoglobin VBG pH Oxyhemoglobin Sodium Potassium Chloride Carbon Dioxide BUN Creatinine Glucose POC Glucose 44 L 112 H Lactic Acid Calcium AST ALT Alkaline Phosphatase CK-MB (CK-2) CK-MB (CK-2) Rel Index Total Protein Albumin TSH Urine WBC (Auto) Salicylates 01/10/17 01/10/17 01/10/17 04:30 05:41 05:45 WBC RBC Hgb Hct MCV MCH RDW Plt Count Lymph % (Auto) [place] % (Auto) Eos % (Auto) [place] # Seg Neutrophils % Seg Neuts % (Manual) Lymphocytes % (Manual) Seg Neutrophils # Seg Neutrophils # Man Lymphocytes # (Manual) APTT POC ABG pH ABG pH POC ABG pCO2 26.6 L POC ABG pO2 207 H ABG pO2 ABG HCO3 ABG Base Excess ABG Hemoglobin VBG pH Oxyhemoglobin Sodium Potassium Chloride Carbon Dioxide 17 L BUN 27 H Creatinine Glucose POC Glucose 68 L Lactic Acid Calcium 7.5 L AST ALT Alkaline Phosphatase CK-MB (CK-2) CK-MB (CK-2) Rel Index Total Protein Albumin TSH Urine WBC (Auto) Salicylates 01/10/17 01/10/17 01/10/17 07:47 10:50 13:41 WBC RBC Hgb Hct MCV MCH RDW Plt Count Lymph % (Auto) [place] % (Auto) Eos % (Auto) [place] # Seg Neutrophils % Seg Neuts % (Manual) Lymphocytes % (Manual) Seg Neutrophils # Seg Neutrophils # Man Lymphocytes # (Manual) APTT POC ABG pH ABG pH POC ABG pCO2 POC ABG pO2 ABG pO2 ABG HCO3 ABG Base Excess ABG Hemoglobin VBG pH Oxyhemoglobin Sodium Potassium Chloride Carbon Dioxide BUN Creatinine Glucose POC Glucose 148 H 165 H 114 H Lactic Acid Calcium AST ALT Alkaline Phosphatase CK-MB (CK-2) CK-MB (CK-2) Rel Index Total Protein Albumin TSH Urine WBC (Auto) Salicylates 01/10/17 01/10/17 01/10/17 20:20 21:39 23:24 WBC RBC Hgb Hct MCV MCH RDW Plt Count Lymph % (Auto) [place] % (Auto) Eos % (Auto) [place] # Seg Neutrophils % Seg Neuts % (Manual) Lymphocytes % (Manual) Seg Neutrophils # Seg Neutrophils # Man Lymphocytes # (Manual) APTT POC ABG pH ABG pH POC ABG pCO2 POC ABG pO2 ABG pO2 ABG HCO3 ABG Base Excess ABG Hemoglobin VBG pH Oxyhemoglobin Sodium Potassium Chloride Carbon Dioxide BUN Creatinine Glucose POC Glucose 150 H 175 H 155 H Lactic Acid Calcium AST ALT Alkaline Phosphatase CK-MB (CK-2) CK-MB (CK-2) Rel Index Total Protein Albumin TSH Urine WBC (Auto) Salicylates 01/11/17 01/11/17 01/11/17 00:19 04:06 05:20 WBC 15.2 H RBC 3.40 L Hgb 8.9 L Hct 26.3 L MCV 78 L MCH 26 L RDW 18.6 H Plt Count 462 H Lymph % (Auto) 13.2 L [place] % (Auto) Eos % (Auto) [place] # Seg Neutrophils % 80.8 H Seg Neuts % (Manual) Lymphocytes % (Manual) Seg Neutrophils # 12.3 H Seg Neutrophils # Man Lymphocytes # (Manual) APTT POC ABG pH 7.463 H ABG pH POC ABG pCO2 26.2 L POC ABG pO2 185 H ABG pO2 ABG HCO3 ABG Base Excess ABG Hemoglobin VBG pH Oxyhemoglobin Sodium Potassium Chloride Carbon Dioxide BUN Creatinine Glucose POC Glucose 163 H Lactic Acid Calcium AST ALT Alkaline Phosphatase CK-MB (CK-2) CK-MB (CK-2) Rel Index Total Protein Albumin TSH Urine WBC (Auto) Salicylates 01/11/17 01/11/17 01/11/17 05:20 06:21 07:57 WBC RBC Hgb Hct MCV MCH RDW Plt Count Lymph % (Auto) [place] % (Auto) Eos % (Auto) [place] # Seg Neutrophils % Seg Neuts % (Manual) Lymphocytes % (Manual) Seg Neutrophils # Seg Neutrophils # Man Lymphocytes # (Manual) APTT POC ABG pH ABG pH POC ABG pCO2 POC ABG pO2 ABG pO2 ABG HCO3 ABG Base Excess ABG Hemoglobin VBG pH Oxyhemoglobin Sodium Potassium 3.4 L Chloride 111.5 H Carbon Dioxide 17 L BUN Creatinine Glucose 147 H POC Glucose 139 H 188 H Lactic Acid Calcium 8.0 L AST ALT Alkaline Phosphatase CK-MB (CK-2) CK-MB (CK-2) Rel Index Total Protein Albumin TSH Urine WBC (Auto) Salicylates 01/11/17 01/11/17 01/11/17 11:46 16:50 23:15 WBC RBC Hgb Hct MCV MCH RDW Plt Count Lymph % (Auto) [place] % (Auto) Eos % (Auto) [place] # Seg Neutrophils % Seg Neuts % (Manual) Lymphocytes % (Manual) Seg Neutrophils # Seg Neutrophils # Man Lymphocytes # (Manual) APTT POC ABG pH ABG pH POC ABG pCO2 POC ABG pO2 ABG pO2 ABG HCO3 ABG Base Excess ABG Hemoglobin VBG pH Oxyhemoglobin Sodium Potassium Chloride Carbon Dioxide BUN Creatinine Glucose POC Glucose 199 H 235 H 155 H Lactic Acid Calcium AST ALT Alkaline Phosphatase CK-MB (CK-2) CK-MB (CK-2) Rel Index Total Protein Albumin TSH Urine WBC (Auto) Salicylates 01/12/17 01/12/17 01/12/17 05:02 06:56 14:50 WBC RBC Hgb Hct MCV MCH RDW Plt Count Lymph % (Auto) [place] % (Auto) Eos % (Auto) [place] # Seg Neutrophils % Seg Neuts % (Manual) Lymphocytes % (Manual) Seg Neutrophils # Seg Neutrophils # Man Lymphocytes # (Manual) APTT POC ABG pH ABG pH POC ABG pCO2 28.0 L POC ABG pO2 178 H ABG pO2 ABG HCO3 ABG Base Excess ABG Hemoglobin VBG pH Oxyhemoglobin Sodium Potassium Chloride Carbon Dioxide BUN Creatinine Glucose POC Glucose 119 H 164 H Lactic Acid Calcium AST ALT Alkaline Phosphatase CK-MB (CK-2) CK-MB (CK-2) Rel Index Total Protein Albumin TSH Urine WBC (Auto) Salicylates 01/13/17 01/13/17 01/13/17 03:37 03:37 04:26 WBC RBC 3.61 L Hgb 9.3 L Hct 28.0 L MCV 78 L MCH 26 L RDW 18.2 H Plt Count Lymph % (Auto) [place] % (Auto) Eos % (Auto) [place] # Seg Neutrophils % Seg Neuts % (Manual) Lymphocytes % (Manual) Seg Neutrophils # Seg Neutrophils # Man Lymphocytes # (Manual) APTT POC ABG pH 7.485 H ABG pH POC ABG pCO2 25.4 L POC ABG pO2 73 L ABG pO2 ABG HCO3 ABG Base Excess ABG Hemoglobin VBG pH Oxyhemoglobin Sodium Potassium Chloride 112.4 H Carbon Dioxide 19 L BUN Creatinine Glucose 118 H POC Glucose Lactic Acid Calcium 8.0 L AST ALT Alkaline Phosphatase CK-MB (CK-2) CK-MB (CK-2) Rel Index Total Protein Albumin TSH Urine WBC (Auto) Salicylates 01/13/17 01/13/17 01/13/17 06:15 11:50 17:31 WBC RBC Hgb Hct MCV MCH RDW Plt Count Lymph % (Auto) [place] % (Auto) Eos % (Auto) [place] # Seg Neutrophils % Seg Neuts % (Manual) Lymphocytes % (Manual) Seg Neutrophils # Seg Neutrophils # Man Lymphocytes # (Manual) APTT POC ABG pH ABG pH POC ABG pCO2 POC ABG pO2 ABG pO2 ABG HCO3 ABG Base Excess ABG Hemoglobin VBG pH Oxyhemoglobin Sodium Potassium Chloride Carbon Dioxide BUN Creatinine Glucose POC Glucose 116 H 171 H 203 H Lactic Acid Calcium AST ALT Alkaline Phosphatase CK-MB (CK-2) CK-MB (CK-2) Rel Index Total Protein Albumin TSH Urine WBC (Auto) Salicylates 01/14/17 01/14/17 01/14/17 00:02 04:50 04:50 WBC RBC 3.32 L Hgb 8.5 L Hct 26.1 L MCV 79 L MCH 26 L RDW 18.2 H Plt Count Lymph % (Auto) [place] % (Auto) 9.0 H Eos % (Auto) [place] # Seg Neutrophils % Seg Neuts % (Manual) Lymphocytes % (Manual) Seg Neutrophils # Seg Neutrophils # Man Lymphocytes # (Manual) APTT POC ABG pH ABG pH POC ABG pCO2 POC ABG pO2 ABG pO2 ABG HCO3 ABG Base Excess ABG Hemoglobin VBG pH Oxyhemoglobin Sodium Potassium Chloride 112.5 H Carbon Dioxide BUN Creatinine Glucose 149 H POC Glucose 157 H Lactic Acid Calcium 8.1 L AST ALT Alkaline Phosphatase CK-MB (CK-2) CK-MB (CK-2) Rel Index Total Protein Albumin TSH Urine WBC (Auto) Salicylates 01/14/17 01/14/17 01/14/17 05:10 11:27 14:07 WBC RBC Hgb Hct MCV MCH RDW Plt Count Lymph % (Auto) [place] % (Auto) Eos % (Auto) [place] # Seg Neutrophils % Seg Neuts % (Manual) Lymphocytes % (Manual) Seg Neutrophils # Seg Neutrophils # Man Lymphocytes # (Manual) APTT POC ABG pH ABG pH POC ABG pCO2 POC ABG pO2 ABG pO2 ABG HCO3 ABG Base Excess ABG Hemoglobin VBG pH Oxyhemoglobin Sodium Potassium Chloride Carbon Dioxide BUN Creatinine Glucose POC Glucose 176 H 147 H Lactic Acid Calcium AST ALT Alkaline Phosphatase CK-MB (CK-2) CK-MB (CK-2) Rel Index Total Protein Albumin TSH Urine WBC (Auto) 53.0 H Salicylates 01/14/17 01/15/17 01/15/17 16:52 00:04 05:26 WBC RBC Hgb Hct MCV MCH RDW Plt Count Lymph % (Auto) [place] % (Auto) Eos % (Auto) [place] # Seg Neutrophils % Seg Neuts % (Manual) Lymphocytes % (Manual) Seg Neutrophils # Seg Neutrophils # Man Lymphocytes # (Manual) APTT POC ABG pH ABG pH POC ABG pCO2 POC ABG pO2 ABG pO2 ABG HCO3 ABG Base Excess ABG Hemoglobin VBG pH Oxyhemoglobin Sodium Potassium Chloride Carbon Dioxide BUN Creatinine Glucose POC Glucose 131 H 193 H 215 H Lactic Acid Calcium AST ALT Alkaline Phosphatase CK-MB (CK-2) CK-MB (CK-2) Rel Index Total Protein Albumin TSH Urine WBC (Auto) Salicylates 01/15/17 01/15/17 01/15/17 11:49 17:47 21:33 WBC RBC Hgb Hct MCV MCH RDW Plt Count Lymph % (Auto) [place] % (Auto) Eos % (Auto) [place] # Seg Neutrophils % Seg Neuts % (Manual) Lymphocytes % (Manual) Seg Neutrophils # Seg Neutrophils # Man Lymphocytes # (Manual) APTT POC ABG pH ABG pH POC ABG pCO2 POC ABG pO2 ABG pO2 ABG HCO3 ABG Base Excess ABG Hemoglobin VBG pH Oxyhemoglobin Sodium Potassium Chloride Carbon Dioxide BUN Creatinine Glucose POC Glucose 121 H 211 H 275 H Lactic Acid Calcium AST ALT Alkaline Phosphatase CK-MB (CK-2) CK-MB (CK-2) Rel Index Total Protein Albumin TSH Urine WBC (Auto) Salicylates 01/16/17 01/16/17 01/16/17 04:30 05:28 13:45 WBC RBC Hgb Hct MCV MCH RDW Plt Count Lymph % (Auto) [place] % (Auto) Eos % (Auto) [place] # Seg Neutrophils % Seg Neuts % (Manual) Lymphocytes % (Manual) Seg Neutrophils # Seg Neutrophils # Man Lymphocytes # (Manual) APTT POC ABG pH ABG pH 7.457 H POC ABG pCO2 POC ABG pO2 ABG pO2 55.1 L ABG HCO3 19.4 L ABG Base Excess -4.0 L ABG Hemoglobin 6.8 L VBG pH Oxyhemoglobin 94.9 L Sodium Potassium Chloride Carbon Dioxide BUN Creatinine Glucose POC Glucose 271 H 236 H Lactic Acid Calcium AST ALT Alkaline Phosphatase CK-MB (CK-2) CK-MB (CK-2) Rel Index Total Protein Albumin TSH Urine WBC (Auto) Salicylates 01/16/17 01/17/17 01/17/17 21:39 04:10 04:10 WBC 4.4 L RBC 2.98 L Hgb 7.7 L Hct 23.3 L MCV 78 L MCH 26 L RDW 18.1 H Plt Count Lymph % (Auto) [place] % (Auto) Eos % (Auto) [place] # Seg Neutrophils % Seg Neuts % (Manual) Lymphocytes % (Manual) Seg Neutrophils # Seg Neutrophils # Man Lymphocytes # (Manual) APTT POC ABG pH ABG pH POC ABG pCO2 POC ABG pO2 ABG pO2 ABG HCO3 ABG Base Excess ABG Hemoglobin VBG pH Oxyhemoglobin Sodium Potassium 3.3 L Chloride 108.7 H Carbon Dioxide 20 L BUN 8 L Creatinine Glucose 202 H POC Glucose 258 H Lactic Acid Calcium 7.6 L AST ALT Alkaline Phosphatase CK-MB (CK-2) CK-MB (CK-2) Rel Index Total Protein Albumin TSH Urine WBC (Auto) Salicylates 01/17/17 01/17/17 01/17/17 04:35 12:23 16:01 WBC RBC Hgb Hct MCV MCH RDW Plt Count Lymph % (Auto) [place] % (Auto) Eos % (Auto) [place] # Seg Neutrophils % Seg Neuts % (Manual) Lymphocytes % (Manual) Seg Neutrophils # Seg Neutrophils # Man Lymphocytes # (Manual) APTT POC ABG pH ABG pH POC ABG pCO2 POC ABG pO2 ABG pO2 160.3 H ABG HCO3 ABG Base Excess -2.3 L ABG Hemoglobin 7.9 L VBG pH Oxyhemoglobin Sodium Potassium Chloride Carbon Dioxide BUN Creatinine Glucose POC Glucose 321 H 239 H Lactic Acid Calcium AST ALT Alkaline Phosphatase CK-MB (CK-2) CK-MB (CK-2) Rel Index Total Protein Albumin TSH Urine WBC (Auto) Salicylates 01/18/17 01/18/17 01/18/17 05:07 12:09 17:54 WBC RBC Hgb Hct MCV MCH RDW Plt Count Lymph % (Auto) [place] % (Auto) Eos % (Auto) [place] # Seg Neutrophils % Seg Neuts % (Manual) Lymphocytes % (Manual) Seg Neutrophils # Seg Neutrophils # Man Lymphocytes # (Manual) APTT POC ABG pH ABG pH POC ABG pCO2 POC ABG pO2 ABG pO2 ABG HCO3 ABG Base Excess ABG Hemoglobin VBG pH Oxyhemoglobin Sodium Potassium Chloride Carbon Dioxide BUN Creatinine Glucose POC Glucose 155 H 203 H 132 H Lactic Acid Calcium AST ALT Alkaline Phosphatase CK-MB (CK-2) CK-MB (CK-2) Rel Index Total Protein Albumin TSH Urine WBC (Auto) Salicylates 01/18/17 01/19/17 01/19/17 23:43 04:28 12:11 WBC RBC Hgb Hct MCV MCH RDW Plt Count Lymph % (Auto) [place] % (Auto) Eos % (Auto) [place] # Seg Neutrophils % Seg Neuts % (Manual) Lymphocytes % (Manual) Seg Neutrophils # Seg Neutrophils # Man Lymphocytes # (Manual) APTT POC ABG pH ABG pH POC ABG pCO2 POC ABG pO2 ABG pO2 ABG HCO3 ABG Base Excess ABG Hemoglobin VBG pH Oxyhemoglobin Sodium Potassium Chloride Carbon Dioxide BUN Creatinine Glucose POC Glucose 125 H 182 H 153 H Lactic Acid Calcium AST ALT Alkaline Phosphatase CK-MB (CK-2) CK-MB (CK-2) Rel Index Total Protein Albumin TSH Urine WBC (Auto) Salicylates 01/19/17 01/20/17 01/20/17 17:23 00:12 05:44 WBC RBC Hgb Hct MCV MCH RDW Plt Count Lymph % (Auto) [place] % (Auto) Eos % (Auto) [place] # Seg Neutrophils % Seg Neuts % (Manual) Lymphocytes % (Manual) Seg Neutrophils # Seg Neutrophils # Man Lymphocytes # (Manual) APTT POC ABG pH ABG pH POC ABG pCO2 POC ABG pO2 ABG pO2 ABG HCO3 ABG Base Excess ABG Hemoglobin VBG pH Oxyhemoglobin Sodium Potassium Chloride Carbon Dioxide BUN Creatinine Glucose POC Glucose 66 L 139 H 176 H Lactic Acid Calcium AST ALT Alkaline Phosphatase CK-MB (CK-2) CK-MB (CK-2) Rel Index Total Protein Albumin TSH Urine WBC (Auto) Salicylates 01/20/17 01/20/17 01/20/17 11:48 17:42 23:43 WBC RBC Hgb Hct MCV MCH RDW Plt Count Lymph % (Auto) [place] % (Auto) Eos % (Auto) [place] # Seg Neutrophils % Seg Neuts % (Manual) Lymphocytes % (Manual) Seg Neutrophils # Seg Neutrophils # Man Lymphocytes # (Manual) APTT POC ABG pH ABG pH POC ABG pCO2 POC ABG pO2 ABG pO2 ABG HCO3 ABG Base Excess ABG Hemoglobin VBG pH Oxyhemoglobin Sodium Potassium Chloride Carbon Dioxide BUN Creatinine Glucose POC Glucose 218 H 132 H 178 H Lactic Acid Calcium AST ALT Alkaline Phosphatase CK-MB (CK-2) CK-MB (CK-2) Rel Index Total Protein Albumin TSH Urine WBC (Auto) Salicylates 01/21/17 01/21/17 01/21/17 05:34 11:17 23:37 WBC RBC Hgb Hct MCV MCH RDW Plt Count Lymph % (Auto) [place] % (Auto) Eos % (Auto) [place] # Seg Neutrophils % Seg Neuts % (Manual) Lymphocytes % (Manual) Seg Neutrophils # Seg Neutrophils # Man Lymphocytes # (Manual) APTT POC ABG pH ABG pH POC ABG pCO2 POC ABG pO2 ABG pO2 ABG HCO3 ABG Base Excess ABG Hemoglobin VBG pH Oxyhemoglobin Sodium Potassium Chloride Carbon Dioxide BUN Creatinine Glucose POC Glucose 106 H 213 H 140 H Lactic Acid Calcium AST ALT Alkaline Phosphatase CK-MB (CK-2) CK-MB (CK-2) Rel Index Total Protein Albumin TSH Urine WBC (Auto) Salicylates 01/22/17 01/22/17 01/22/17 04:00 04:00 04:58 WBC RBC 3.26 L Hgb 8.3 L Hct 25.5 L MCV 78 L MCH 25 L RDW 17.9 H Plt Count Lymph % (Auto) [place] % (Auto) 7.9 H Eos % (Auto) 6.2 H [place] # Seg Neutrophils % Seg Neuts % (Manual) Lymphocytes % (Manual) Seg Neutrophils # Seg Neutrophils # Man Lymphocytes # (Manual) APTT POC ABG pH ABG pH POC ABG pCO2 POC ABG pO2 ABG pO2 ABG HCO3 ABG Base Excess ABG Hemoglobin VBG pH Oxyhemoglobin Sodium Potassium Chloride 95.5 L Carbon Dioxide 31 H D BUN Creatinine Glucose 134 H POC Glucose 146 H Lactic Acid Calcium AST 44 H ALT Alkaline Phosphatase 379 H CK-MB (CK-2) CK-MB (CK-2) Rel Index Total Protein Albumin 2.7 L TSH Urine WBC (Auto) Salicylates 01/22/17 01/22/17 01/22/17 12:12 18:12 23:39 WBC RBC Hgb Hct MCV MCH RDW Plt Count Lymph % (Auto) [place] % (Auto) Eos % (Auto) [place] # Seg Neutrophils % Seg Neuts % (Manual) Lymphocytes % (Manual) Seg Neutrophils # Seg Neutrophils # Man Lymphocytes # (Manual) APTT POC ABG pH ABG pH POC ABG pCO2 POC ABG pO2 ABG pO2 ABG HCO3 ABG Base Excess ABG Hemoglobin VBG pH Oxyhemoglobin Sodium Potassium Chloride Carbon Dioxide BUN Creatinine Glucose POC Glucose 255 H 182 H 134 H Lactic Acid Calcium AST ALT Alkaline Phosphatase CK-MB (CK-2) CK-MB (CK-2) Rel Index Total Protein Albumin TSH Urine WBC (Auto) Salicylates 01/23/17 01/23/17 01/23/17 04:43 12:12 17:36 WBC RBC Hgb Hct MCV MCH RDW Plt Count Lymph % (Auto) [place] % (Auto) Eos % (Auto) [place] # Seg Neutrophils % Seg Neuts % (Manual) Lymphocytes % (Manual) Seg Neutrophils # Seg Neutrophils # Man Lymphocytes # (Manual) APTT POC ABG pH ABG pH POC ABG pCO2 POC ABG pO2 ABG pO2 ABG HCO3 ABG Base Excess ABG Hemoglobin VBG pH Oxyhemoglobin Sodium Potassium Chloride Carbon Dioxide BUN Creatinine Glucose POC Glucose 218 H 128 H 156 H Lactic Acid Calcium AST ALT Alkaline Phosphatase CK-MB (CK-2) CK-MB (CK-2) Rel Index Total Protein Albumin TSH Urine WBC (Auto) Salicylates 01/24/17 01/24/17 01/24/17 00:08 05:16 11:40 WBC RBC Hgb Hct MCV MCH RDW Plt Count Lymph % (Auto) [place] % (Auto) Eos % (Auto) [place] # Seg Neutrophils % Seg Neuts % (Manual) Lymphocytes % (Manual) Seg Neutrophils # Seg Neutrophils # Man Lymphocytes # (Manual) APTT POC ABG pH ABG pH POC ABG pCO2 POC ABG pO2 ABG pO2 ABG HCO3 ABG Base Excess ABG Hemoglobin VBG pH Oxyhemoglobin Sodium Potassium Chloride Carbon Dioxide BUN Creatinine Glucose POC Glucose 129 H 169 H 187 H Lactic Acid Calcium AST ALT Alkaline Phosphatase CK-MB (CK-2) CK-MB (CK-2) Rel Index Total Protein Albumin TSH Urine WBC (Auto) Salicylates 01/24/17 01/24/17 01/25/17 17:43 23:23 04:56 WBC RBC Hgb Hct MCV MCH RDW Plt Count Lymph % (Auto) [place] % (Auto) Eos % (Auto) [place] # Seg Neutrophils % Seg Neuts % (Manual) Lymphocytes % (Manual) Seg Neutrophils # Seg Neutrophils # Man Lymphocytes # (Manual) APTT POC ABG pH ABG pH POC ABG pCO2 POC ABG pO2 ABG pO2 ABG HCO3 ABG Base Excess ABG Hemoglobin VBG pH Oxyhemoglobin Sodium Potassium Chloride Carbon Dioxide BUN Creatinine Glucose POC Glucose 215 H 222 H 210 H Lactic Acid Calcium AST ALT Alkaline Phosphatase CK-MB (CK-2) CK-MB (CK-2) Rel Index Total Protein Albumin TSH Urine WBC (Auto) Salicylates 01/25/17 01/25/17 01/26/17 11:52 17:37 00:02 WBC RBC Hgb Hct MCV MCH RDW Plt Count Lymph % (Auto) [place] % (Auto) Eos % (Auto) [place] # Seg Neutrophils % Seg Neuts % (Manual) Lymphocytes % (Manual) Seg Neutrophils # Seg Neutrophils # Man Lymphocytes # (Manual) APTT POC ABG pH ABG pH POC ABG pCO2 POC ABG pO2 ABG pO2 ABG HCO3 ABG Base Excess ABG Hemoglobin VBG pH Oxyhemoglobin Sodium Potassium Chloride Carbon Dioxide BUN Creatinine Glucose POC Glucose 284 H 218 H 192 H Lactic Acid Calcium AST ALT Alkaline Phosphatase CK-MB (CK-2) CK-MB (CK-2) Rel Index Total Protein Albumin TSH Urine WBC (Auto) Salicylates 01/26/17 01/26/17 01/26/17 05:33 12:17 17:50 WBC RBC Hgb Hct MCV MCH RDW Plt Count Lymph % (Auto) [place] % (Auto) Eos % (Auto) [place] # Seg Neutrophils % Seg Neuts % (Manual) Lymphocytes % (Manual) Seg Neutrophils # Seg Neutrophils # Man Lymphocytes # (Manual) APTT POC ABG pH ABG pH POC ABG pCO2 POC ABG pO2 ABG pO2 ABG HCO3 ABG Base Excess ABG Hemoglobin VBG pH Oxyhemoglobin Sodium Potassium Chloride Carbon Dioxide BUN Creatinine Glucose POC Glucose 199 H 227 H 229 H Lactic Acid Calcium AST ALT Alkaline Phosphatase CK-MB (CK-2) CK-MB (CK-2) Rel Index Total Protein Albumin TSH Urine WBC (Auto) Salicylates 01/26/17 01/27/17 01/27/17 23:57 05:31 11:42 WBC RBC Hgb Hct MCV MCH RDW Plt Count Lymph % (Auto) [place] % (Auto) Eos % (Auto) [place] # Seg Neutrophils % Seg Neuts % (Manual) Lymphocytes % (Manual) Seg Neutrophils # Seg Neutrophils # Man Lymphocytes # (Manual) APTT POC ABG pH ABG pH POC ABG pCO2 POC ABG pO2 ABG pO2 ABG HCO3 ABG Base Excess ABG Hemoglobin VBG pH Oxyhemoglobin Sodium Potassium Chloride Carbon Dioxide BUN Creatinine Glucose POC Glucose 186 H 285 H 260 H Lactic Acid Calcium AST ALT Alkaline Phosphatase CK-MB (CK-2) CK-MB (CK-2) Rel Index Total Protein Albumin TSH Urine WBC (Auto) Salicylates 01/27/17 01/27/17 01/27/17 17:47 23:58 Unknown WBC 12.1 H RBC 3.28 L Hgb 8.5 L Hct 25.5 L MCV 78 L MCH 26 L RDW 16.8 H Plt Count 601 H Lymph % (Auto) [place] % (Auto) Eos % (Auto) [place] # Seg Neutrophils % Seg Neuts % (Manual) Lymphocytes % (Manual) Seg Neutrophils # Seg Neutrophils # Man Lymphocytes # (Manual) APTT POC ABG pH ABG pH POC ABG pCO2 POC ABG pO2 ABG pO2 ABG HCO3 ABG Base Excess ABG Hemoglobin VBG pH Oxyhemoglobin Sodium Potassium Chloride Carbon Dioxide BUN Creatinine Glucose POC Glucose 329 H 225 H Lactic Acid Calcium AST ALT Alkaline Phosphatase CK-MB (CK-2) CK-MB (CK-2) Rel Index Total Protein Albumin TSH Urine WBC (Auto) Salicylates 01/27/17 01/28/17 01/28/17 Unknown 03:44 03:44 WBC RBC 3.14 L Hgb 8.2 L Hct 24.1 L MCV 77 L MCH 26 L RDW 16.9 H Plt Count 567 H Lymph % (Auto) [place] % (Auto) Eos % (Auto) [place] # Seg Neutrophils % Seg Neuts % (Manual) Lymphocytes % (Manual) Seg Neutrophils # Seg Neutrophils # Man Lymphocytes # (Manual) APTT POC ABG pH ABG pH POC ABG pCO2 POC ABG pO2 ABG pO2 ABG HCO3 ABG Base Excess ABG Hemoglobin VBG pH Oxyhemoglobin Sodium 128 L Potassium 5.4 H Chloride 87.5 L Carbon Dioxide BUN 44 H 42 H Creatinine Glucose 250 H 128 H POC Glucose Lactic Acid Calcium AST ALT Alkaline Phosphatase CK-MB (CK-2) CK-MB (CK-2) Rel Index Total Protein Albumin TSH Urine WBC (Auto) Salicylates 01/28/17 01/28/17 01/28/17 11:43 16:47 17:52 WBC RBC Hgb Hct MCV MCH RDW Plt Count Lymph % (Auto) [place] % (Auto) Eos % (Auto) [place] # Seg Neutrophils % Seg Neuts % (Manual) Lymphocytes % (Manual) Seg Neutrophils # Seg Neutrophils # Man Lymphocytes # (Manual) APTT POC ABG pH ABG pH POC ABG pCO2 POC ABG pO2 ABG pO2 ABG HCO3 ABG Base Excess ABG Hemoglobin VBG pH Oxyhemoglobin Sodium Potassium Chloride Carbon Dioxide BUN Creatinine Glucose POC Glucose 351 H 249 H Lactic Acid Calcium AST ALT Alkaline Phosphatase CK-MB (CK-2) CK-MB (CK-2) Rel Index Total Protein Albumin TSH Urine WBC (Auto) > 182.0 H Salicylates 01/29/17 01/29/1701/29/17 05:25 05:25 09:32 WBC 13.6 H RBC 3.25 L Hgb 8.3 L Hct 25.1 L MCV 77 L MCH 26 L RDW 16.8 H Plt Count 514 H Lymph % (Auto) [place] % (Auto) Eos % (Auto) [place] # Seg Neutrophils % Seg Neuts % (Manual) Lymphocytes % (Manual) Seg Neutrophils # Seg Neutrophils # Man Lymphocytes # (Manual) APTT POC ABG pH ABG pH POC ABG pCO2 POC ABG pO2 ABG pO2 ABG HCO3 ABG Base Excess ABG Hemoglobin VBG pH Oxyhemoglobin Sodium Potassium Chloride 97.8 L Carbon Dioxide BUN 34 H Creatinine Glucose 222 H POC Glucose Lactic Acid 2.50 H* Calcium AST ALT Alkaline Phosphatase CK-MB (CK-2) CK-MB (CK-2) Rel Index Total Protein Albumin TSH Urine WBC (Auto) Salicylates 01/29/17 01/29/17 01/29/17 11:56 18:11 23:55 WBC RBC Hgb Hct MCV MCH RDW Plt Count Lymph % (Auto) [place] % (Auto) Eos % (Auto) [place] # Seg Neutrophils % Seg Neuts % (Manual) Lymphocytes % (Manual) Seg Neutrophils # Seg Neutrophils # Man Lymphocytes # (Manual) APTT POC ABG pH ABG pH POC ABG pCO2 POC ABG pO2 ABG pO2 ABG HCO3 ABG Base Excess ABG Hemoglobin VBG pH Oxyhemoglobin Sodium Potassium Chloride Carbon Dioxide BUN Creatinine Glucose POC Glucose 261 H 215 H 176 H Lactic Acid Calcium AST ALT Alkaline Phosphatase CK-MB (CK-2) CK-MB (CK-2) Rel Index Total Protein Albumin TSH Urine WBC (Auto) Salicylates 01/30/17 01/30/17 01/30/17 05:31 05:31 05:34 WBC 15.2 H RBC 3.09 L Hgb 7.9 L Hct 23.9 L MCV 77 L MCH 26 L RDW 16.9 H Plt Count 569 H Lymph % (Auto) [place] % (Auto) Eos % (Auto) [place] # Seg Neutrophils % Seg Neuts % (Manual) Lymphocytes % (Manual) Seg Neutrophils # Seg Neutrophils # Man Lymphocytes # (Manual) APTT POC ABG pH ABG pH POC ABG pCO2 POC ABG pO2 ABG pO2 ABG HCO3 ABG Base Excess ABG Hemoglobin VBG pH Oxyhemoglobin Sodium Potassium Chloride Carbon Dioxide BUN 24 H Creatinine Glucose 235 H POC Glucose 243 H Lactic Acid Calcium AST ALT Alkaline Phosphatase CK-MB (CK-2) CK-MB (CK-2) Rel Index Total Protein Albumin TSH Urine WBC (Auto) Salicylates 01/30/17 01/30/17 01/30/17 11:38 17:58 23:29 WBC RBC Hgb Hct MCV MCH RDW Plt Count Lymph % (Auto) [place] % (Auto) Eos % (Auto) [place] # Seg Neutrophils % Seg Neuts % (Manual) Lymphocytes % (Manual) Seg Neutrophils # Seg Neutrophils # Man Lymphocytes # (Manual) APTT POC ABG pH ABG pH POC ABG pCO2 POC ABG pO2 ABG pO2 ABG HCO3 ABG Base Excess ABG Hemoglobin VBG pH Oxyhemoglobin Sodium Potassium Chloride Carbon Dioxide BUN Creatinine Glucose POC Glucose 298 H 208 H 245 H Lactic Acid Calcium AST ALT Alkaline Phosphatase CK-MB (CK-2) CK-MB (CK-2) Rel Index Total Protein Albumin TSH Urine WBC (Auto) Salicylates 01/31/17 01/31/17 01/31/17 04:39 04:39 05:57 WBC 11.4 H RBC 3.22 L Hgb 8.2 L Hct 24.9 L MCV 78 L MCH 25 L RDW 17.2 H Plt Count 576 H Lymph % (Auto) [place] % (Auto) Eos % (Auto) [place] # Seg Neutrophils % Seg Neuts % (Manual) Lymphocytes % (Manual) Seg Neutrophils # Seg Neutrophils # Man Lymphocytes # (Manual) APTT POC ABG pH ABG pH POC ABG pCO2 POC ABG pO2 ABG pO2 ABG HCO3 ABG Base Excess ABG Hemoglobin VBG pH Oxyhemoglobin Sodium Potassium Chloride Carbon Dioxide BUN Creatinine 0.7 L Glucose 223 H POC Glucose 264 H Lactic Acid Calcium AST ALT Alkaline Phosphatase CK-MB (CK-2) CK-MB (CK-2) Rel Index Total Protein Albumin TSH Urine WBC (Auto) Salicylates 01/31/17 01/31/17 01/31/17 12:23 17:41 18:55 WBC RBC Hgb Hct MCV MCH RDW Plt Count Lymph % (Auto) [place] % (Auto) Eos % (Auto) [place] # Seg Neutrophils % Seg Neuts % (Manual) Lymphocytes % (Manual) Seg Neutrophils # Seg Neutrophils # Man Lymphocytes # (Manual) APTT POC ABG pH ABG pH POC ABG pCO2 32.8 L POC ABG pO2 ABG pO2 ABG HCO3 ABG Base Excess ABG Hemoglobin VBG pH Oxyhemoglobin Sodium Potassium Chloride Carbon Dioxide BUN Creatinine Glucose POC Glucose 252 H 208 H Lactic Acid Calcium AST ALT Alkaline Phosphatase CK-MB (CK-2) CK-MB (CK-2) Rel Index Total Protein Albumin TSH Urine WBC (Auto) Salicylates 01/31/17 02/01/17 02/01/17 22:59 03:38 03:38 WBC RBC 2.81 L Hgb 7.4 L Hct 22.1 L MCV 79 L MCH 27 L RDW 17.0 H Plt Count 540 H Lymph % (Auto) [place] % (Auto) Eos % (Auto) [place] # Seg Neutrophils % Seg Neuts % (Manual) Lymphocytes % (Manual) Seg Neutrophils # Seg Neutrophils # Man Lymphocytes # (Manual) APTT POC ABG pH ABG pH POC ABG pCO2 POC ABG pO2 ABG pO2 ABG HCO3 ABG Base Excess ABG Hemoglobin VBG pH Oxyhemoglobin Sodium Potassium Chloride Carbon Dioxide 21 L BUN Creatinine 0.7 L Glucose POC Glucose 40 L Lactic Acid Calcium AST ALT Alkaline Phosphatase CK-MB (CK-2) CK-MB (CK-2) Rel Index Total Protein Albumin TSH Urine WBC (Auto) Salicylates 02/01/17 02/01/17 02/01/17 05:17 12:19 16:44 WBC RBC Hgb Hct MCV MCH RDW Plt Count Lymph % (Auto) [place] % (Auto) Eos % (Auto) [place] # Seg Neutrophils % Seg Neuts % (Manual) Lymphocytes % (Manual) Seg Neutrophils # Seg Neutrophils # Man Lymphocytes # (Manual) APTT POC ABG pH ABG pH POC ABG pCO2 POC ABG pO2 ABG pO2 ABG HCO3 ABG Base Excess ABG Hemoglobin VBG pH Oxyhemoglobin Sodium Potassium Chloride Carbon Dioxide BUN Creatinine Glucose POC Glucose 140 H 213 H 172 H Lactic Acid Calcium AST ALT Alkaline Phosphatase CK-MB (CK-2) CK-MB (CK-2) Rel Index Total Protein Albumin TSH Urine WBC (Auto) Salicylates 02/01/17 02/02/17 02/02/17 23:59 05:14 11:24 WBC RBC Hgb Hct MCV MCH RDW Plt Count Lymph % (Auto) [place] % (Auto) Eos % (Auto) [place] # Seg Neutrophils % Seg Neuts % (Manual) Lymphocytes % (Manual) Seg Neutrophils # Seg Neutrophils # Man Lymphocytes # (Manual) APTT POC ABG pH ABG pH POC ABG pCO2 POC ABG pO2 ABG pO2 ABG HCO3 ABG Base Excess ABG Hemoglobin VBG pH Oxyhemoglobin Sodium Potassium Chloride Carbon Dioxide BUN Creatinine Glucose POC Glucose 181 H 194 H 209 H Lactic Acid Calcium AST ALT Alkaline Phosphatase CK-MB (CK-2) CK-MB (CK-2) Rel Index Total Protein Albumin TSH Urine WBC (Auto) Salicylates 02/02/17 02/02/17 02/02/17 11:46 11:46 17:47 WBC RBC 2.94 L Hgb 7.5 L Hct 23.0 L MCV 78 L MCH 25 L RDW 16.9 H Plt Count 520 H Lymph % (Auto) [place] % (Auto) Eos % (Auto) [place] # Seg Neutrophils % Seg Neuts % (Manual) Lymphocytes % (Manual) Seg Neutrophils # Seg Neutrophils # Man Lymphocytes # (Manual) APTT POC ABG pH ABG pH POC ABG pCO2 POC ABG pO2 ABG pO2 ABG HCO3 ABG Base Excess ABG Hemoglobin VBG pH Oxyhemoglobin Sodium Potassium Chloride Carbon Dioxide BUN Creatinine 0.6 L Glucose 189 H POC Glucose 147 H Lactic Acid Calcium 8.1 L AST ALT Alkaline Phosphatase CK-MB (CK-2) CK-MB (CK-2) Rel Index Total Protein Albumin TSH Urine WBC (Auto) Salicylates 02/02/17 02/03/17 02/03/17 23:32 05:53 11:19 WBC RBC Hgb Hct MCV MCH RDW Plt Count Lymph % (Auto) [place] % (Auto) Eos % (Auto) [place] # Seg Neutrophils % Seg Neuts % (Manual) Lymphocytes % (Manual) Seg Neutrophils # Seg Neutrophils # Man Lymphocytes # (Manual) APTT POC ABG pH ABG pH POC ABG pCO2 POC ABG pO2 ABG pO2 ABG HCO3 ABG Base Excess ABG Hemoglobin VBG pH Oxyhemoglobin Sodium Potassium Chloride Carbon Dioxide BUN Creatinine Glucose POC Glucose 176 H 224 H 228 H Lactic Acid Calcium AST ALT Alkaline Phosphatase CK-MB (CK-2) CK-MB (CK-2) Rel Index Total Protein Albumin TSH Urine WBC (Auto) Salicylates 02/03/17 02/03/17 02/04/17 16:59 23:38 05:45 WBC RBC Hgb Hct MCV MCH RDW Plt Count Lymph % (Auto) [place] % (Auto) Eos % (Auto) [place] # Seg Neutrophils % Seg Neuts % (Manual) Lymphocytes % (Manual) Seg Neutrophils # Seg Neutrophils # Man Lymphocytes # (Manual) APTT POC ABG pH ABG pH POC ABG pCO2 POC ABG pO2 ABG pO2 ABG HCO3 ABG Base Excess ABG Hemoglobin VBG pH Oxyhemoglobin Sodium Potassium Chloride Carbon Dioxide BUN Creatinine Glucose POC Glucose 189 H 191 H 251 H Lactic Acid Calcium AST ALT Alkaline Phosphatase CK-MB (CK-2) CK-MB (CK-2) Rel Index Total Protein Albumin TSH Urine WBC (Auto) Salicylates 02/04/17 02/04/17 02/05/17 11:20 17:20 00:17 WBC RBC Hgb Hct MCV MCH RDW Plt Count Lymph % (Auto) [place] % (Auto) Eos % (Auto) [place] # Seg Neutrophils % Seg Neuts % (Manual) Lymphocytes % (Manual) Seg Neutrophils # Seg Neutrophils # Man Lymphocytes # (Manual) APTT POC ABG pH ABG pH POC ABG pCO2 POC ABG pO2 ABG pO2 ABG HCO3 ABG Base Excess ABG Hemoglobin VBG pH Oxyhemoglobin Sodium Potassium Chloride Carbon Dioxide BUN Creatinine Glucose POC Glucose 243 H 163 H 200 H Lactic Acid Calcium AST ALT Alkaline Phosphatase CK-MB (CK-2) CK-MB (CK-2) Rel Index Total Protein Albumin TSH Urine WBC (Auto) Salicylates 02/05/17 02/05/17 02/05/17 05:38 12:38 16:29 WBC RBC Hgb Hct MCV MCH RDW Plt Count Lymph % (Auto) [place] % (Auto) Eos % (Auto) [place] # Seg Neutrophils % Seg Neuts % (Manual) Lymphocytes % (Manual) Seg Neutrophils # Seg Neutrophils # Man Lymphocytes # (Manual) APTT POC ABG pH ABG pH POC ABG pCO2 POC ABG pO2 ABG pO2 ABG HCO3 ABG Base Excess ABG Hemoglobin VBG pH Oxyhemoglobin Sodium Potassium Chloride Carbon Dioxide BUN Creatinine Glucose POC Glucose 248 H 241 H 257 H Lactic Acid Calcium AST ALT Alkaline Phosphatase CK-MB (CK-2) CK-MB (CK-2) Rel Index Total Protein Albumin TSH Urine WBC (Auto) Salicylates 02/05/17 02/06/17 02/06/17 23:56 05:30 11:50 WBC RBC Hgb Hct MCV MCH RDW Plt Count Lymph % (Auto) [place] % (Auto) Eos % (Auto) [place] # Seg Neutrophils % Seg Neuts % (Manual) Lymphocytes % (Manual) Seg Neutrophils # Seg Neutrophils # Man Lymphocytes # (Manual) APTT POC ABG pH ABG pH POC ABG pCO2 POC ABG pO2 ABG pO2 ABG HCO3 ABG Base Excess ABG Hemoglobin VBG pH Oxyhemoglobin Sodium Potassium Chloride Carbon Dioxide BUN Creatinine Glucose POC Glucose 258 H 120 H 254 H Lactic Acid Calcium AST ALT Alkaline Phosphatase CK-MB (CK-2) CK-MB (CK-2) Rel Index Total Protein Albumin TSH Urine WBC (Auto) Salicylates 02/06/17 02/06/17 02/07/17 17:11 23:50 05:22 WBC RBC Hgb Hct MCV MCH RDW Plt Count Lymph % (Auto) [place] % (Auto) Eos % (Auto) [place] # Seg Neutrophils % Seg Neuts % (Manual) Lymphocytes % (Manual) Seg Neutrophils # Seg Neutrophils # Man Lymphocytes # (Manual) APTT POC ABG pH ABG pH POC ABG pCO2 POC ABG pO2 ABG pO2 ABG HCO3 ABG Base Excess ABG Hemoglobin VBG pH Oxyhemoglobin Sodium Potassium Chloride Carbon Dioxide BUN Creatinine Glucose POC Glucose 149 H 240 H 258 H Lactic Acid Calcium AST ALT Alkaline Phosphatase CK-MB (CK-2) CK-MB (CK-2) Rel Index Total Protein Albumin TSH Urine WBC (Auto) Salicylates 02/07/17 02/07/17 02/07/17 11:15 18:33 23:59 WBC RBC Hgb Hct MCV MCH RDW Plt Count Lymph % (Auto) [place] % (Auto) Eos % (Auto) [place] # Seg Neutrophils % Seg Neuts % (Manual) Lymphocytes % (Manual) Seg Neutrophils # Seg Neutrophils # Man Lymphocytes # (Manual) APTT POC ABG pH ABG pH POC ABG pCO2 POC ABG pO2 ABG pO2 ABG HCO3 ABG Base Excess ABG Hemoglobin VBG pH Oxyhemoglobin Sodium Potassium Chloride Carbon Dioxide BUN Creatinine Glucose POC Glucose 239 H 176 H 186 H Lactic Acid Calcium AST ALT Alkaline Phosphatase CK-MB (CK-2) CK-MB (CK-2) Rel Index Total Protein Albumin TSH Urine WBC (Auto) Salicylates 02/08/17 02/08/1717 06:15 11:55 16:55 WBC RBC Hgb Hct MCV MCH RDW Plt Count Lymph % (Auto) [place] % (Auto) Eos % (Auto) [place] # Seg Neutrophils % Seg Neuts % (Manual) Lymphocytes % (Manual) Seg Neutrophils # Seg Neutrophils # Man Lymphocytes # (Manual) APTT POC ABG pH ABG pH POC ABG pCO2 POC ABG pO2 ABG pO2 ABG HCO3 ABG Base Excess ABG Hemoglobin VBG pH Oxyhemoglobin Sodium Potassium Chloride Carbon Dioxide BUN Creatinine Glucose POC Glucose 195 H 129 H 246 H Lactic Acid Calcium AST ALT Alkaline Phosphatase CK-MB (CK-2) CK-MB (CK-2) Rel Index Total Protein Albumin TSH Urine WBC (Auto) Salicylates 02/08/17 02/09/17 02/09/17 23:51 05:51 07:24 WBC 14.7 H RBC 3.39 L Hgb 8.9 L Hct 26.4 L MCV 78 L MCH 26 L RDW 18.4 H Plt Count 670 H Lymph % (Auto) 11.8 L [place] % (Auto) Eos % (Auto) [place] # Seg Neutrophils % 81.2 H Seg Neuts % (Manual) Lymphocytes % (Manual) Seg Neutrophils # 11.9 H Seg Neutrophils # Man Lymphocytes # (Manual) APTT POC ABG pH ABG pH POC ABG pCO2 POC ABG pO2 ABG pO2 ABG HCO3 ABG Base Excess ABG Hemoglobin VBG pH Oxyhemoglobin Sodium Potassium Chloride Carbon Dioxide BUN Creatinine Glucose POC Glucose 262 H 295 H Lactic Acid Calcium AST ALT Alkaline Phosphatase CK-MB (CK-2) CK-MB (CK-2) Rel Index Total Protein Albumin TSH Urine WBC (Auto) Salicylates 02/09/17 02/09/17 02/09/17 07:24 12:08 18:39 WBC RBC Hgb Hct MCV MCH RDW Plt Count Lymph % (Auto) [place] % (Auto) Eos % (Auto) [place] # Seg Neutrophils % Seg Neuts % (Manual) Lymphocytes % (Manual) Seg Neutrophils # Seg Neutrophils # Man Lymphocytes # (Manual) APTT POC ABG pH ABG pH POC ABG pCO2 POC ABG pO2 ABG pO2 ABG HCO3 ABG Base Excess ABG Hemoglobin VBG pH Oxyhemoglobin Sodium Potassium Chloride 95.5 L Carbon Dioxide BUN 52 H Creatinine Glucose 277 H POC Glucose 236 H 151 H Lactic Acid Calcium AST ALT Alkaline Phosphatase CK-MB (CK-2) CK-MB (CK-2) Rel Index Total Protein Albumin TSH Urine WBC (Auto) Salicylates 02/10/17 02/10/17 02/10/17 00:01 05:44 11:21 WBC RBC Hgb Hct MCV MCH RDW Plt Count Lymph % (Auto) [place] % (Auto) Eos % (Auto) [place] # Seg Neutrophils % Seg Neuts % (Manual) Lymphocytes % (Manual) Seg Neutrophils # Seg Neutrophils # Man Lymphocytes # (Manual) APTT POC ABG pH ABG pH POC ABG pCO2 POC ABG pO2 ABG pO2 ABG HCO3 ABG Base Excess ABG Hemoglobin VBG pH Oxyhemoglobin Sodium Potassium Chloride Carbon Dioxide BUN Creatinine Glucose POC Glucose 210 H 201 H 233 H Lactic Acid Calcium AST ALT Alkaline Phosphatase CK-MB (CK-2) CK-MB (CK-2) Rel Index Total Protein Albumin TSH Urine WBC (Auto) Salicylates 02/10/17 02/10/17 02/11/17 17:29 23:56 05:24 WBC RBC Hgb Hct MCV MCH RDW Plt Count Lymph % (Auto) [place] % (Auto) Eos % (Auto) [place] # Seg Neutrophils % Seg Neuts % (Manual) Lymphocytes % (Manual) Seg Neutrophils # Seg Neutrophils # Man Lymphocytes # (Manual) APTT POC ABG pH ABG pH POC ABG pCO2 POC ABG pO2 ABG pO2 ABG HCO3 ABG Base Excess ABG Hemoglobin VBG pH Oxyhemoglobin Sodium Potassium Chloride Carbon Dioxide BUN Creatinine Glucose POC Glucose 167 H 191 H 135 H Lactic Acid Calcium AST ALT Alkaline Phosphatase CK-MB (CK-2) CK-MB (CK-2) Rel Index Total Protein Albumin TSH Urine WBC (Auto) Salicylates 02/11/17 02/11/17 02/11/17 12:25 17:03 23:59 WBC RBC Hgb Hct MCV MCH RDW Plt Count Lymph % (Auto) [place] % (Auto) Eos % (Auto) [place] # Seg Neutrophils % Seg Neuts % (Manual) Lymphocytes % (Manual) Seg Neutrophils # Seg Neutrophils # Man Lymphocytes # (Manual) APTT POC ABG pH ABG pH POC ABG pCO2 POC ABG pO2 ABG pO2 ABG HCO3 ABG Base Excess ABG Hemoglobin VBG pH Oxyhemoglobin Sodium Potassium Chloride Carbon Dioxide BUN Creatinine Glucose POC Glucose 275 H 172 H 215 H Lactic Acid Calcium AST ALT Alkaline Phosphatase CK-MB (CK-2) CK-MB (CK-2) Rel Index Total Protein Albumin TSH Urine WBC (Auto) Salicylates 02/12/17 02/12/17 02/12/17 05:39 11:33 17:55 WBC RBC Hgb Hct MCV MCH RDW Plt Count Lymph % (Auto) [place] % (Auto) Eos % (Auto) [place] # Seg Neutrophils % Seg Neuts % (Manual) Lymphocytes % (Manual) Seg Neutrophils # Seg Neutrophils # Man Lymphocytes # (Manual) APTT POC ABG pH ABG pH POC ABG pCO2 POC ABG pO2 ABG pO2 ABG HCO3 ABG Base Excess ABG Hemoglobin VBG pH Oxyhemoglobin Sodium Potassium Chloride Carbon Dioxide BUN Creatinine Glucose POC Glucose 261 H 217 H 172 H Lactic Acid Calcium AST ALT Alkaline Phosphatase CK-MB (CK-2) CK-MB (CK-2) Rel Index Total Protein Albumin TSH Urine WBC (Auto) Salicylates 02/13/17 02/13/17 02/13/17 00:25 06:46 11:26 WBC RBC Hgb Hct MCV MCH RDW Plt Count Lymph % (Auto) [place] % (Auto) Eos % (Auto) [place] # Seg Neutrophils % Seg Neuts % (Manual) Lymphocytes % (Manual) Seg Neutrophils # Seg Neutrophils # Man Lymphocytes # (Manual) APTT POC ABG pH ABG pH POC ABG pCO2 POC ABG pO2 ABG pO2 ABG HCO3 ABG Base Excess ABG Hemoglobin VBG pH Oxyhemoglobin Sodium Potassium Chloride Carbon Dioxide BUN Creatinine Glucose POC Glucose 207 H 219 H 231 H Lactic Acid Calcium AST ALT Alkaline Phosphatase CK-MB (CK-2) CK-MB (CK-2) Rel Index Total Protein Albumin TSH Urine WBC (Auto) Salicylates 02/13/17 02/13/17 02/14/17 17:12 23:44 05:44 WBC RBC Hgb Hct MCV MCH RDW Plt Count Lymph % (Auto) [place] % (Auto) Eos % (Auto) [place] # Seg Neutrophils % Seg Neuts % (Manual) Lymphocytes % (Manual) Seg Neutrophils # Seg Neutrophils # Man Lymphocytes # (Manual) APTT POC ABG pH ABG pH POC ABG pCO2 POC ABG pO2 ABG pO2 ABG HCO3 ABG Base Excess ABG Hemoglobin VBG pH Oxyhemoglobin Sodium Potassium Chloride Carbon Dioxide BUN Creatinine Glucose POC Glucose 190 H 256 H 184 H Lactic Acid Calcium AST ALT Alkaline Phosphatase CK-MB (CK-2) CK-MB (CK-2) Rel Index Total Protein Albumin TSH Urine WBC (Auto) Salicylates 02/14/17 02/14/17 02/14/17 12:21 17:57 23:18 WBC RBC Hgb Hct MCV MCH RDW Plt Count Lymph % (Auto) [place] % (Auto) Eos % (Auto) [place] # Seg Neutrophils % Seg Neuts % (Manual) Lymphocytes % (Manual) Seg Neutrophils # Seg Neutrophils # Man Lymphocytes # (Manual) APTT POC ABG pH ABG pH POC ABG pCO2 POC ABG pO2 ABG pO2 ABG HCO3 ABG Base Excess ABG Hemoglobin VBG pH Oxyhemoglobin Sodium Potassium Chloride Carbon Dioxide BUN Creatinine Glucose POC Glucose 233 H 155 H 165 H Lactic Acid Calcium AST ALT Alkaline Phosphatase CK-MB (CK-2) CK-MB (CK-2) Rel Index Total Protein Albumin TSH Urine WBC (Auto) Salicylates 02/15/17 02/15/17 02/15/17 05:33 11:45 17:20 WBC RBC Hgb Hct MCV MCH RDW Plt Count Lymph % (Auto) [place] % (Auto) Eos % (Auto) [place] # Seg Neutrophils % Seg Neuts % (Manual) Lymphocytes % (Manual) Seg Neutrophils # Seg Neutrophils # Man Lymphocytes # (Manual) APTT POC ABG pH ABG pH POC ABG pCO2 POC ABG pO2 ABG pO2 ABG HCO3 ABG Base Excess ABG Hemoglobin VBG pH Oxyhemoglobin Sodium Potassium Chloride Carbon Dioxide BUN Creatinine Glucose POC Glucose 239 H 130 H 189 H Lactic Acid Calcium AST ALT Alkaline Phosphatase CK-MB (CK-2) CK-MB (CK-2) Rel Index Total Protein Albumin TSH Urine WBC (Auto) Salicylates 02/16/17 02/16/17 02/16/17 00:14 05:09 12:31 WBC RBC Hgb Hct MCV MCH RDW Plt Count Lymph % (Auto) [place] % (Auto) Eos % (Auto) [place] # Seg Neutrophils % Seg Neuts % (Manual) Lymphocytes % (Manual) Seg Neutrophils # Seg Neutrophils # Man Lymphocytes # (Manual) APTT POC ABG pH ABG pH POC ABG pCO2 POC ABG pO2 ABG pO2 ABG HCO3 ABG Base Excess ABG Hemoglobin VBG pH Oxyhemoglobin Sodium Potassium Chloride Carbon Dioxide BUN Creatinine Glucose POC Glucose 197 H 226 H 178 H Lactic Acid Calcium AST ALT Alkaline Phosphatase CK-MB (CK-2) CK-MB (CK-2) Rel Index Total Protein Albumin TSH Urine WBC (Auto) Salicylates 02/16/17 02/16/17 02/17/17 16:35 23:49 05:37 WBC RBC Hgb Hct MCV MCH RDW Plt Count Lymph % (Auto) [place] % (Auto) Eos % (Auto) [place] # Seg Neutrophils % Seg Neuts % (Manual) Lymphocytes % (Manual) Seg Neutrophils # Seg Neutrophils # Man Lymphocytes # (Manual) APTT POC ABG pH ABG pH POC ABG pCO2 POC ABG pO2 ABG pO2 ABG HCO3 ABG Base Excess ABG Hemoglobin VBG pH Oxyhemoglobin Sodium Potassium Chloride Carbon Dioxide BUN Creatinine Glucose POC Glucose 174 H 62 L 153 H Lactic Acid Calcium AST ALT Alkaline Phosphatase CK-MB (CK-2) CK-MB (CK-2) Rel Index Total Protein Albumin TSH Urine WBC (Auto) Salicylates 02/17/17 02/17/17 02/17/17 11:39 17:02 22:24 WBC RBC Hgb Hct MCV MCH RDW Plt Count Lymph % (Auto) [place] % (Auto) Eos % (Auto) [place] # Seg Neutrophils % Seg Neuts % (Manual) Lymphocytes % (Manual) Seg Neutrophils # Seg Neutrophils # Man Lymphocytes # (Manual) APTT POC ABG pH ABG pH POC ABG pCO2 POC ABG pO2 ABG pO2 ABG HCO3 ABG Base Excess ABG Hemoglobin VBG pH Oxyhemoglobin Sodium Potassium Chloride Carbon Dioxide BUN Creatinine Glucose POC Glucose 231 H 112 H 116 H Lactic Acid Calcium AST ALT Alkaline Phosphatase CK-MB (CK-2) CK-MB (CK-2) Rel Index Total Protein Albumin TSH Urine WBC (Auto) Salicylates 02/18/17 02/19/17 02/19/17 15:34 05:09 07:57 WBC RBC Hgb Hct MCV MCH RDW Plt Count Lymph % (Auto) [place] % (Auto) Eos % (Auto) [place] # Seg Neutrophils % Seg Neuts % (Manual) Lymphocytes % (Manual) Seg Neutrophils # Seg Neutrophils # Man Lymphocytes # (Manual) APTT POC ABG pH ABG pH POC ABG pCO2 POC ABG pO2 ABG pO2 ABG HCO3 ABG Base Excess ABG Hemoglobin VBG pH Oxyhemoglobin Sodium Potassium Chloride Carbon Dioxide BUN Creatinine Glucose POC Glucose 215 H 218 H 283 H Lactic Acid Calcium AST ALT Alkaline Phosphatase CK-MB (CK-2) CK-MB (CK-2) Rel Index Total Protein Albumin TSH Urine WBC (Auto) Salicylates 02/19/17 02/19/17 02/20/17 14:49 22:10 05:10 WBC RBC Hgb Hct MCV MCH RDW Plt Count Lymph % (Auto) [place] % (Auto) Eos % (Auto) [place] # Seg Neutrophils % Seg Neuts % (Manual) Lymphocytes % (Manual) Seg Neutrophils # Seg Neutrophils # Man Lymphocytes # (Manual) APTT POC ABG pH ABG pH POC ABG pCO2 POC ABG pO2 ABG pO2 ABG HCO3 ABG Base Excess ABG Hemoglobin VBG pH Oxyhemoglobin Sodium Potassium Chloride Carbon Dioxide BUN Creatinine Glucose POC Glucose 290 H 169 H 209 H Lactic Acid Calcium AST ALT Alkaline Phosphatase CK-MB (CK-2) CK-MB (CK-2) Rel Index Total Protein Albumin TSH Urine WBC (Auto) Salicylates 02/20/17 02/20/17 02/21/17 15:05 21:52 02:00 WBC RBC Hgb Hct MCV MCH RDW Plt Count Lymph % (Auto) [place] % (Auto) Eos % (Auto) [place] # Seg Neutrophils % Seg Neuts % (Manual) Lymphocytes % (Manual) Seg Neutrophils # Seg Neutrophils # Man Lymphocytes # (Manual) APTT POC ABG pH ABG pH POC ABG pCO2 POC ABG pO2 ABG pO2 ABG HCO3 ABG Base Excess ABG Hemoglobin VBG pH Oxyhemoglobin Sodium Potassium Chloride Carbon Dioxide BUN Creatinine Glucose POC Glucose 172 H 209 H 216 H Lactic Acid Calcium AST ALT Alkaline Phosphatase CK-MB (CK-2) CK-MB (CK-2) Rel Index Total Protein Albumin TSH Urine WBC (Auto) Salicylates 02/21/17 02/21/17 02/21/17 04:54 14:43 17:47 WBC RBC Hgb Hct MCV MCH RDW Plt Count Lymph % (Auto) [place] % (Auto) Eos % (Auto) [place] # Seg Neutrophils % Seg Neuts % (Manual) Lymphocytes % (Manual) Seg Neutrophils # Seg Neutrophils # Man Lymphocytes # (Manual) APTT POC ABG pH ABG pH POC ABG pCO2 POC ABG pO2 ABG pO2 ABG HCO3 ABG Base Excess ABG Hemoglobin VBG pH Oxyhemoglobin Sodium Potassium Chloride Carbon Dioxide BUN Creatinine Glucose POC Glucose 227 H 290 H 220 H Lactic Acid Calcium AST ALT Alkaline Phosphatase CK-MB (CK-2) CK-MB (CK-2) Rel Index Total Protein Albumin TSH Urine WBC (Auto) Salicylates 02/21/17 02/22/17 02/22/17 22:02 04:52 15:25 WBC RBC Hgb Hct MCV MCH RDW Plt Count Lymph % (Auto) [place] % (Auto) Eos % (Auto) [place] # Seg Neutrophils % Seg Neuts % (Manual) Lymphocytes % (Manual) Seg Neutrophils # Seg Neutrophils # Man Lymphocytes # (Manual) APTT POC ABG pH ABG pH POC ABG pCO2 POC ABG pO2 ABG pO2 ABG HCO3 ABG Base Excess ABG Hemoglobin VBG pH Oxyhemoglobin Sodium Potassium Chloride Carbon Dioxide BUN Creatinine Glucose POC Glucose 246 H 212 H 236 H Lactic Acid Calcium AST ALT Alkaline Phosphatase CK-MB (CK-2) CK-MB (CK-2) Rel Index Total Protein Albumin TSH Urine WBC (Auto) Salicylates 02/22/17 02/23/17 02/23/17 21:33 06:04 10:00 WBC RBC Hgb Hct MCV MCH RDW Plt Count Lymph % (Auto) [place] % (Auto) Eos % (Auto) [place] # Seg Neutrophils % Seg Neuts % (Manual) Lymphocytes % (Manual) Seg Neutrophils # Seg Neutrophils # Man Lymphocytes # (Manual) APTT POC ABG pH ABG pH POC ABG pCO2 POC ABG pO2 ABG pO2 ABG HCO3 ABG Base Excess ABG Hemoglobin VBG pH Oxyhemoglobin Sodium Potassium Chloride Carbon Dioxide BUN Creatinine Glucose POC Glucose 255 H 208 H 174 H Lactic Acid Calcium AST ALT Alkaline Phosphatase CK-MB (CK-2) CK-MB (CK-2) Rel Index Total Protein Albumin TSH Urine WBC (Auto) Salicylates 02/23/17 02/23/17 02/23/17 12:52 17:15 21:51 WBC RBC Hgb Hct MCV MCH RDW Plt Count Lymph % (Auto) [place] % (Auto) Eos % (Auto) [place] # Seg Neutrophils % Seg Neuts % (Manual) Lymphocytes % (Manual) Seg Neutrophils # Seg Neutrophils # Man Lymphocytes # (Manual) APTT POC ABG pH ABG pH POC ABG pCO2 POC ABG pO2 ABG pO2 ABG HCO3 ABG Base Excess ABG Hemoglobin VBG pH Oxyhemoglobin Sodium Potassium Chloride Carbon Dioxide BUN Creatinine Glucose POC Glucose 203 H 269 H 205 H Lactic Acid Calcium AST ALT Alkaline Phosphatase CK-MB (CK-2) CK-MB (CK-2) Rel Index Total Protein Albumin TSH Urine WBC (Auto) Salicylates 02/24/17 02/24/17 02/24/17 10:23 17:45 21:24 WBC RBC Hgb Hct MCV MCH RDW Plt Count Lymph % (Auto) [place] % (Auto) Eos % (Auto) [place] # Seg Neutrophils % Seg Neuts % (Manual) Lymphocytes % (Manual) Seg Neutrophils # Seg Neutrophils # Man Lymphocytes # (Manual) APTT POC ABG pH ABG pH POC ABG pCO2 POC ABG pO2 ABG pO2 ABG HCO3 ABG Base Excess ABG Hemoglobin VBG pH Oxyhemoglobin Sodium Potassium Chloride Carbon Dioxide BUN Creatinine Glucose POC Glucose 280 H 239 H 254 H Lactic Acid Calcium AST ALT Alkaline Phosphatase CK-MB (CK-2) CK-MB (CK-2) Rel Index Total Protein Albumin TSH Urine WBC (Auto) Salicylates 02/25/17 02/25/17 02/25/17 02:12 05:17 14:32 WBC RBC Hgb Hct MCV MCH RDW Plt Count Lymph % (Auto) [place] % (Auto) Eos % (Auto) [place] # Seg Neutrophils % Seg Neuts % (Manual) Lymphocytes % (Manual) Seg Neutrophils # Seg Neutrophils # Man Lymphocytes # (Manual) APTT POC ABG pH ABG pH POC ABG pCO2 POC ABG pO2 ABG pO2 ABG HCO3 ABG Base Excess ABG Hemoglobin VBG pH Oxyhemoglobin Sodium Potassium Chloride Carbon Dioxide BUN Creatinine Glucose POC Glucose 296 H 332 H 353 H Lactic Acid Calcium AST ALT Alkaline Phosphatase CK-MB (CK-2) CK-MB (CK-2) Rel Index Total Protein Albumin TSH Urine WBC (Auto) Salicylates 02/25/17 02/26/17 02/26/17 22:14 00:37 05:52 WBC RBC Hgb Hct MCV MCH RDW Plt Count Lymph % (Auto) [place] % (Auto) Eos % (Auto) [place] # Seg Neutrophils % Seg Neuts % (Manual) Lymphocytes % (Manual) Seg Neutrophils # Seg Neutrophils # Man Lymphocytes # (Manual) APTT POC ABG pH ABG pH POC ABG pCO2 POC ABG pO2 ABG pO2 ABG HCO3 ABG Base Excess ABG Hemoglobin VBG pH Oxyhemoglobin Sodium Potassium Chloride Carbon Dioxide BUN Creatinine Glucose POC Glucose 201 H 233 H 269 H Lactic Acid Calcium AST ALT Alkaline Phosphatase CK-MB (CK-2) CK-MB (CK-2) Rel Index Total Protein Albumin TSH Urine WBC (Auto) Salicylates 02/26/17 02/26/17 02/26/17 11:48 13:49 21:26 WBC RBC Hgb Hct MCV MCH RDW Plt Count Lymph % (Auto) [place] % (Auto) Eos % (Auto) [place] # Seg Neutrophils % Seg Neuts % (Manual) Lymphocytes % (Manual) Seg Neutrophils # Seg Neutrophils # Man Lymphocytes # (Manual) APTT POC ABG pH ABG pH POC ABG pCO2 POC ABG pO2 ABG pO2 ABG HCO3 ABG Base Excess ABG Hemoglobin VBG pH Oxyhemoglobin Sodium Potassium Chloride Carbon Dioxide BUN Creatinine Glucose POC Glucose 333 H 322 H 244 H Lactic Acid Calcium AST ALT Alkaline Phosphatase CK-MB (CK-2) CK-MB (CK-2) Rel Index Total Protein Albumin TSH Urine WBC (Auto) Salicylates 02/27/17 02/27/17 02/27/17 05:27 13:51 21:48 WBC RBC Hgb Hct MCV MCH RDW Plt Count Lymph % (Auto) [place] % (Auto) Eos % (Auto) [place] # Seg Neutrophils % Seg Neuts % (Manual) Lymphocytes % (Manual) Seg Neutrophils # Seg Neutrophils # Man Lymphocytes # (Manual) APTT POC ABG pH ABG pH POC ABG pCO2 POC ABG pO2 ABG pO2 ABG HCO3 ABG Base Excess ABG Hemoglobin VBG pH Oxyhemoglobin Sodium Potassium Chloride Carbon Dioxide BUN Creatinine Glucose POC Glucose 217 H 239 H 254 H Lactic Acid Calcium AST ALT Alkaline Phosphatase CK-MB (CK-2) CK-MB (CK-2) Rel Index Total Protein Albumin TSH Urine WBC (Auto) Salicylates 02/28/17 02/28/17 02/28/17 05:38 11:00 19:44 WBC RBC Hgb Hct MCV MCH RDW Plt Count Lymph % (Auto) [place] % (Auto) Eos % (Auto) [place] # Seg Neutrophils % Seg Neuts % (Manual) Lymphocytes % (Manual) Seg Neutrophils # Seg Neutrophils # Man Lymphocytes # (Manual) APTT POC ABG pH ABG pH POC ABG pCO2 POC ABG pO2 ABG pO2 ABG HCO3 ABG Base Excess ABG Hemoglobin VBG pH Oxyhemoglobin Sodium Potassium Chloride Carbon Dioxide BUN Creatinine Glucose POC Glucose 325 H 203 H 116 H Lactic Acid Calcium AST ALT Alkaline Phosphatase CK-MB (CK-2) CK-MB (CK-2) Rel Index Total Protein Albumin TSH Urine WBC (Auto) Salicylates 03/01/17 03/01/17 03/01/17 00:08 05:31 12:17 WBC RBC Hgb Hct MCV MCH RDW Plt Count Lymph % (Auto) [place] % (Auto) Eos % (Auto) [place] # Seg Neutrophils % Seg Neuts % (Manual) Lymphocytes % (Manual) Seg Neutrophils # Seg Neutrophils # Man Lymphocytes # (Manual) APTT POC ABG pH ABG pH POC ABG pCO2 POC ABG pO2 ABG pO2 ABG HCO3 ABG Base Excess ABG Hemoglobin VBG pH Oxyhemoglobin Sodium Potassium Chloride Carbon Dioxide BUN Creatinine Glucose POC Glucose 202 H 183 H 184 H Lactic Acid Calcium AST ALT Alkaline Phosphatase CK-MB (CK-2) CK-MB (CK-2) Rel Index Total Protein Albumin TSH Urine WBC (Auto) Salicylates 03/02/17 03/02/17 03/02/17 00:12 05:58 18:22 WBC RBC Hgb Hct MCV MCH RDW Plt Count Lymph % (Auto) [place] % (Auto) Eos % (Auto) [place] # Seg Neutrophils % Seg Neuts % (Manual) Lymphocytes % (Manual) Seg Neutrophils # Seg Neutrophils # Man Lymphocytes # (Manual) APTT POC ABG pH ABG pH POC ABG pCO2 POC ABG pO2 ABG pO2 ABG HCO3 ABG Base Excess ABG Hemoglobin VBG pH Oxyhemoglobin Sodium Potassium Chloride Carbon Dioxide BUN Creatinine Glucose POC Glucose 117 H 176 H 156 H Lactic Acid Calcium AST ALT Alkaline Phosphatase CK-MB (CK-2) CK-MB (CK-2) Rel Index Total Protein Albumin TSH Urine WBC (Auto) Salicylates 03/02/17 03/03/17 03/03/17 23:51 05:44 11:32 WBC RBC Hgb Hct MCV MCH RDW Plt Count Lymph % (Auto) [place] % (Auto) Eos % (Auto) [place] # Seg Neutrophils % Seg Neuts % (Manual) Lymphocytes % (Manual) Seg Neutrophils # Seg Neutrophils # Man Lymphocytes # (Manual) APTT POC ABG pH ABG pH POC ABG pCO2 POC ABG pO2 ABG pO2 ABG HCO3 ABG Base Excess ABG Hemoglobin VBG pH Oxyhemoglobin Sodium Potassium Chloride Carbon Dioxide BUN Creatinine Glucose POC Glucose 211 H 117 H 133 H Lactic Acid Calcium AST ALT Alkaline Phosphatase CK-MB (CK-2) CK-MB (CK-2) Rel Index Total Protein Albumin TSH Urine WBC (Auto) Salicylates 03/03/17 03/03/17 03/04/17 17:43 23:17 05:30 WBC RBC Hgb Hct MCV MCH RDW Plt Count Lymph % (Auto) [place] % (Auto) Eos % (Auto) [place] # Seg Neutrophils % Seg Neuts % (Manual) Lymphocytes % (Manual) Seg Neutrophils # Seg Neutrophils # Man Lymphocytes # (Manual) APTT POC ABG pH ABG pH POC ABG pCO2 POC ABG pO2 ABG pO2 ABG HCO3 ABG Base Excess ABG Hemoglobin VBG pH Oxyhemoglobin Sodium Potassium Chloride Carbon Dioxide BUN Creatinine Glucose POC Glucose 206 H 170 H 126 H Lactic Acid Calcium AST ALT Alkaline Phosphatase CK-MB (CK-2) CK-MB (CK-2) Rel Index Total Protein Albumin TSH Urine WBC (Auto) Salicylates 03/04/17 03/04/17 03/05/17 12:17 17:27 05:20 WBC RBC Hgb Hct MCV MCH RDW Plt Count Lymph % (Auto) [place] % (Auto) Eos % (Auto) [place] # Seg Neutrophils % Seg Neuts % (Manual) Lymphocytes % (Manual) Seg Neutrophils # Seg Neutrophils # Man Lymphocytes # (Manual) APTT POC ABG pH ABG pH POC ABG pCO2 POC ABG pO2 ABG pO2 ABG HCO3 ABG Base Excess ABG Hemoglobin VBG pH Oxyhemoglobin Sodium Potassium Chloride Carbon Dioxide BUN Creatinine Glucose POC Glucose 135 H 121 H 185 H Lactic Acid Calcium AST ALT Alkaline Phosphatase CK-MB (CK-2) CK-MB (CK-2) Rel Index Total Protein Albumin TSH Urine WBC (Auto) Salicylates 03/05/17 03/06/17 03/06/17 11:50 11:52 17:34 WBC RBC Hgb Hct MCV MCH RDW Plt Count Lymph % (Auto) [place] % (Auto) Eos % (Auto) [place] # Seg Neutrophils % Seg Neuts % (Manual) Lymphocytes % (Manual) Seg Neutrophils # Seg Neutrophils # Man Lymphocytes # (Manual) APTT POC ABG pH ABG pH POC ABG pCO2 POC ABG pO2 ABG pO2 ABG HCO3 ABG Base Excess ABG Hemoglobin VBG pH Oxyhemoglobin Sodium Potassium Chloride Carbon Dioxide BUN Creatinine Glucose POC Glucose 116 H 133 H 181 H Lactic Acid Calcium AST ALT Alkaline Phosphatase CK-MB (CK-2) CK-MB (CK-2) Rel Index Total Protein Albumin TSH Urine WBC (Auto) Salicylates 03/07/17 03/07/17 03/07/17 05:21 11:36 17:49 WBC RBC Hgb Hct MCV MCH RDW Plt Count Lymph % (Auto) [place] % (Auto) Eos % (Auto) [place] # Seg Neutrophils % Seg Neuts % (Manual) Lymphocytes % (Manual) Seg Neutrophils # Seg Neutrophils # Man Lymphocytes # (Manual) APTT POC ABG pH ABG pH POC ABG pCO2 POC ABG pO2 ABG pO2 ABG HCO3 ABG Base Excess ABG Hemoglobin VBG pH Oxyhemoglobin Sodium Potassium Chloride Carbon Dioxide BUN Creatinine Glucose POC Glucose 159 H 137 H 158 H Lactic Acid Calcium AST ALT Alkaline Phosphatase CK-MB (CK-2) CK-MB (CK-2) Rel Index Total Protein Albumin TSH Urine WBC (Auto) Salicylates 03/08/17 03/08/17 03/08/17 05:51 13:58 23:50 WBC RBC Hgb Hct MCV MCH RDW Plt Count Lymph % (Auto) [place] % (Auto) Eos % (Auto) [place] # Seg Neutrophils % Seg Neuts % (Manual) Lymphocytes % (Manual) Seg Neutrophils # Seg Neutrophils # Man Lymphocytes # (Manual) APTT POC ABG pH ABG pH POC ABG pCO2 POC ABG pO2 ABG pO2 ABG HCO3 ABG Base Excess ABG Hemoglobin VBG pH Oxyhemoglobin Sodium Potassium Chloride Carbon Dioxide BUN Creatinine Glucose POC Glucose 122 H 182 H 114 H Lactic Acid Calcium AST ALT Alkaline Phosphatase CK-MB (CK-2) CK-MB (CK-2) Rel Index Total Protein Albumin TSH Urine WBC (Auto) Salicylates 03/09/17 03/09/17 03/09/17 05:21 05:51 05:51 WBC RBC 3.61 L Hgb 9.5 L Hct 28.3 L MCV 79 L MCH 26 L RDW 17.8 H Plt Count Lymph % (Auto) [place] % (Auto) Eos % (Auto) [place] # Seg Neutrophils % Seg Neuts % (Manual) Lymphocytes % (Manual) Seg Neutrophils # Seg Neutrophils # Man Lymphocytes # (Manual) APTT POC ABG pH ABG pH POC ABG pCO2 POC ABG pO2 ABG pO2 ABG HCO3 ABG Base Excess ABG Hemoglobin VBG pH Oxyhemoglobin Sodium 134 L Potassium Chloride 95.5 L Carbon Dioxide BUN 33 H Creatinine 0.5 L Glucose 143 H POC Glucose 153 H Lactic Acid Calcium AST ALT Alkaline Phosphatase CK-MB (CK-2) CK-MB (CK-2) Rel Index Total Protein Albumin TSH Urine WBC (Auto) Salicylates 03/09/17 03/09/17 03/09/17 12:10 18:13 21:00 WBC RBC Hgb Hct MCV MCH RDW Plt Count Lymph % (Auto) [place] % (Auto) Eos % (Auto) [place] # Seg Neutrophils % Seg Neuts % (Manual) Lymphocytes % (Manual) Seg Neutrophils # Seg Neutrophils # Man Lymphocytes # (Manual) APTT POC ABG pH ABG pH POC ABG pCO2 POC ABG pO2 ABG pO2 ABG HCO3 ABG Base Excess ABG Hemoglobin VBG pH Oxyhemoglobin Sodium Potassium Chloride Carbon Dioxide BUN Creatinine Glucose POC Glucose 203 H 221 H 198 H Lactic Acid Calcium AST ALT Alkaline Phosphatase CK-MB (CK-2) CK-MB (CK-2) Rel Index Total Protein Albumin TSH Urine WBC (Auto) Salicylates 03/09/17 03/10/17 03/10/17 23:58 05:09 05:09 WBC RBC Hgb 10.3 L Hct 30.5 L MCV 78 L MCH 26 L RDW 17.9 H Plt Count Lymph % (Auto) [place] % (Auto) 10.0 H Eos % (Auto) 6.0 H [place] # Seg Neutrophils % Seg Neuts % (Manual) Lymphocytes % (Manual) Seg Neutrophils # Seg Neutrophils # Man Lymphocytes # (Manual) APTT POC ABG pH ABG pH POC ABG pCO2 POC ABG pO2 ABG pO2 ABG HCO3 ABG Base Excess ABG Hemoglobin VBG pH Oxyhemoglobin Sodium 132 L Potassium Chloride 92.2 L Carbon Dioxide BUN 33 H Creatinine 0.5 L Glucose 50 L POC Glucose 167 H Lactic Acid Calcium AST ALT Alkaline Phosphatase CK-MB (CK-2) CK-MB (CK-2) Rel Index Total Protein Albumin TSH Urine WBC (Auto) Salicylates 03/10/17 03/10/17 03/10/17 05:33 05:34 11:48 WBC RBC Hgb Hct MCV MCH RDW Plt Count Lymph % (Auto) [place] % (Auto) Eos % (Auto) [place] # Seg Neutrophils % Seg Neuts % (Manual) Lymphocytes % (Manual) Seg Neutrophils # Seg Neutrophils # Man Lymphocytes # (Manual) APTT POC ABG pH ABG pH POC ABG pCO2 POC ABG pO2 ABG pO2 ABG HCO3 ABG Base Excess ABG Hemoglobin VBG pH Oxyhemoglobin Sodium Potassium Chloride Carbon Dioxide BUN Creatinine Glucose POC Glucose 52 L 53 L 148 H Lactic Acid Calcium AST ALT Alkaline Phosphatase CK-MB (CK-2) CK-MB (CK-2) Rel Index Total Protein Albumin TSH Urine WBC (Auto) Salicylates 03/10/17 03/10/17 03/11/17 17:53 23:47 05:18 WBC RBC Hgb Hct MCV MCH RDW Plt Count Lymph % (Auto) [place] % (Auto) Eos % (Auto) [place] # Seg Neutrophils % Seg Neuts % (Manual) Lymphocytes % (Manual) Seg Neutrophils # Seg Neutrophils # Man Lymphocytes # (Manual) APTT POC ABG pH ABG pH POC ABG pCO2 POC ABG pO2 ABG pO2 ABG HCO3 ABG Base Excess ABG Hemoglobin VBG pH Oxyhemoglobin Sodium Potassium Chloride Carbon Dioxide BUN Creatinine Glucose POC Glucose 189 H 398 H 126 H Lactic Acid Calcium AST ALT Alkaline Phosphatase CK-MB (CK-2) CK-MB (CK-2) Rel Index Total Protein Albumin TSH Urine WBC (Auto) Salicylates 03/11/17 03/11/17 03/11/17 11:53 17:30 23:10 WBC RBC Hgb Hct MCV MCH RDW Plt Count Lymph % (Auto) [place] % (Auto) Eos % (Auto) [place] # Seg Neutrophils % Seg Neuts % (Manual) Lymphocytes % (Manual) Seg Neutrophils # Seg Neutrophils # Man Lymphocytes # (Manual) APTT POC ABG pH ABG pH POC ABG pCO2 POC ABG pO2 ABG pO2 ABG HCO3 ABG Base Excess ABG Hemoglobin VBG pH Oxyhemoglobin Sodium Potassium Chloride Carbon Dioxide BUN Creatinine Glucose POC Glucose 198 H 142 H 244 H Lactic Acid Calcium AST ALT Alkaline Phosphatase CK-MB (CK-2) CK-MB (CK-2) Rel Index Total Protein Albumin TSH Urine WBC (Auto) Salicylates 03/12/17 03/12/17 03/12/17 04:36 11:49 17:23 WBC RBC Hgb Hct MCV MCH RDW Plt Count Lymph % (Auto) [place] % (Auto) Eos % (Auto) [place] # Seg Neutrophils % Seg Neuts % (Manual) Lymphocytes % (Manual) Seg Neutrophils # Seg Neutrophils # Man Lymphocytes # (Manual) APTT POC ABG pH ABG pH POC ABG pCO2 POC ABG pO2 ABG pO2 ABG HCO3 ABG Base Excess ABG Hemoglobin VBG pH Oxyhemoglobin Sodium Potassium Chloride Carbon Dioxide BUN Creatinine Glucose POC Glucose 205 H 197 H 209 H Lactic Acid Calcium AST ALT Alkaline Phosphatase CK-MB (CK-2) CK-MB (CK-2) Rel Index Total Protein Albumin TSH Urine WBC (Auto) Salicylates 03/12/17 03/13/17 03/13/17 23:51 05:32 11:43 WBC RBC Hgb Hct MCV MCH RDW Plt Count Lymph % (Auto) [place] % (Auto) Eos % (Auto) [place] # Seg Neutrophils % Seg Neuts % (Manual) Lymphocytes % (Manual) Seg Neutrophils # Seg Neutrophils # Man Lymphocytes # (Manual) APTT POC ABG pH ABG pH POC ABG pCO2 POC ABG pO2 ABG pO2 ABG HCO3 ABG Base Excess ABG Hemoglobin VBG pH Oxyhemoglobin Sodium Potassium Chloride Carbon Dioxide BUN Creatinine Glucose POC Glucose 210 H 154 H 164 H Lactic Acid Calcium AST ALT Alkaline Phosphatase CK-MB (CK-2) CK-MB (CK-2) Rel Index Total Protein Albumin TSH Urine WBC (Auto) Salicylates 03/13/17 03/13/17 03/14/17 17:11 23:26 05:42 WBC RBC Hgb Hct MCV MCH RDW Plt Count Lymph % (Auto) [place] % (Auto) Eos % (Auto) [place] # Seg Neutrophils % Seg Neuts % (Manual) Lymphocytes % (Manual) Seg Neutrophils # Seg Neutrophils # Man Lymphocytes # (Manual) APTT POC ABG pH ABG pH POC ABG pCO2 POC ABG pO2 ABG pO2 ABG HCO3 ABG Base Excess ABG Hemoglobin VBG pH Oxyhemoglobin Sodium Potassium Chloride Carbon Dioxide BUN Creatinine Glucose POC Glucose 195 H 240 H 230 H Lactic Acid Calcium AST ALT Alkaline Phosphatase CK-MB (CK-2) CK-MB (CK-2) Rel Index Total Protein Albumin TSH Urine WBC (Auto) Salicylates 03/14/17 03/14/17 03/14/17 14:04 17:34 23:42 WBC RBC Hgb Hct MCV MCH RDW Plt Count Lymph % (Auto) [place] % (Auto) Eos % (Auto) [place] # Seg Neutrophils % Seg Neuts % (Manual) Lymphocytes % (Manual) Seg Neutrophils # Seg Neutrophils # Man Lymphocytes # (Manual) APTT POC ABG pH ABG pH POC ABG pCO2 POC ABG pO2 ABG pO2 ABG HCO3 ABG Base Excess ABG Hemoglobin VBG pH Oxyhemoglobin Sodium Potassium Chloride Carbon Dioxide BUN Creatinine Glucose POC Glucose 227 H 186 H 225 H Lactic Acid Calcium AST ALT Alkaline Phosphatase CK-MB (CK-2) CK-MB (CK-2) Rel Index Total Protein Albumin TSH Urine WBC (Auto) Salicylates 03/15/17 03/15/17 03/15/17 05:21 17:13 21:37 WBC RBC Hgb Hct MCV MCH RDW Plt Count Lymph % (Auto) [place] % (Auto) Eos % (Auto) [place] # Seg Neutrophils % Seg Neuts % (Manual) Lymphocytes % (Manual) Seg Neutrophils # Seg Neutrophils # Man Lymphocytes # (Manual) APTT POC ABG pH ABG pH POC ABG pCO2 POC ABG pO2 ABG pO2 ABG HCO3 ABG Base Excess ABG Hemoglobin VBG pH Oxyhemoglobin Sodium Potassium Chloride Carbon Dioxide BUN Creatinine Glucose POC Glucose 244 H 203 H 216 H Lactic Acid Calcium AST ALT Alkaline Phosphatase CK-MB (CK-2) CK-MB (CK-2) Rel Index Total Protein Albumin TSH Urine WBC (Auto) Salicylates 03/16/17 03/16/17 03/16/17 05:52 18:07 21:54 WBC RBC Hgb Hct MCV MCH RDW Plt Count Lymph % (Auto) [place] % (Auto) Eos % (Auto) [place] # Seg Neutrophils % Seg Neuts % (Manual) Lymphocytes % (Manual) Seg Neutrophils # Seg Neutrophils # Man Lymphocytes # (Manual) APTT POC ABG pH ABG pH POC ABG pCO2 POC ABG pO2 ABG pO2 ABG HCO3 ABG Base Excess ABG Hemoglobin VBG pH Oxyhemoglobin Sodium Potassium Chloride Carbon Dioxide BUN Creatinine Glucose POC Glucose 248 H 254 H 244 H Lactic Acid Calcium AST ALT Alkaline Phosphatase CK-MB (CK-2) CK-MB (CK-2) Rel Index Total Protein Albumin TSH Urine WBC (Auto) Salicylates 12/10/2503/17/17 03/17/17 07:07 07:42 07:43 WBC RBC Hgb 9.7 L Hct 29.1 L MCV 78 L MCH 26 L RDW 17.4 H Plt Count Lymph % (Auto) [place] % (Auto) Eos % (Auto) [place] # Seg Neutrophils % Seg Neuts % (Manual) Lymphocytes % (Manual) Seg Neutrophils # Seg Neutrophils # Man Lymphocytes # (Manual) APTT POC ABG pH ABG pH POC ABG pCO2 POC ABG pO2 ABG pO2 ABG HCO3 ABG Base Excess ABG Hemoglobin VBG pH Oxyhemoglobin Sodium Potassium Chloride 96.6 L Carbon Dioxide BUN 30 H Creatinine 0.5 L Glucose 251 H POC Glucose 222 H Lactic Acid Calcium AST ALT Alkaline Phosphatase CK-MB (CK-2) CK-MB (CK-2) Rel Index Total Protein Albumin TSH Urine WBC (Auto) Salicylates 03/17/17 03/17/17 03/18/17 14:08 21:20 14:24 WBC RBC Hgb Hct MCV MCH RDW Plt Count Lymph % (Auto) [place] % (Auto) Eos % (Auto) [place] # Seg Neutrophils % Seg Neuts % (Manual) Lymphocytes % (Manual) Seg Neutrophils # Seg Neutrophils # Man Lymphocytes # (Manual) APTT POC ABG pH ABG pH POC ABG pCO2 POC ABG pO2 ABG pO2 ABG HCO3 ABG Base Excess ABG Hemoglobin VBG pH Oxyhemoglobin Sodium Potassium Chloride Carbon Dioxide BUN Creatinine Glucose POC Glucose 281 H 239 H 195 H Lactic Acid Calcium AST ALT Alkaline Phosphatase CK-MB (CK-2) CK-MB (CK-2) Rel Index Total Protein Albumin TSH Urine WBC (Auto) Salicylates 03/18/17 03/19/17 03/19/17 21:37 04:57 14:23 WBC RBC Hgb Hct MCV MCH RDW Plt Count Lymph % (Auto) [place] % (Auto) Eos % (Auto) [place] # Seg Neutrophils % Seg Neuts % (Manual) Lymphocytes % (Manual) Seg Neutrophils # Seg Neutrophils # Man Lymphocytes # (Manual) APTT POC ABG pH ABG pH POC ABG pCO2 POC ABG pO2 ABG pO2 ABG HCO3 ABG Base Excess ABG Hemoglobin VBG pH Oxyhemoglobin Sodium Potassium Chloride Carbon Dioxide BUN Creatinine Glucose POC Glucose 227 H 205 H 277 H Lactic Acid Calcium AST ALT Alkaline Phosphatase CK-MB (CK-2) CK-MB (CK-2) Rel Index Total Protein Albumin TSH Urine WBC (Auto) Salicylates 03/19/17 03/19/17 03/20/17 20:31 21:47 04:55 WBC RBC Hgb Hct MCV MCH RDW Plt Count Lymph % (Auto) [place] % (Auto) Eos % (Auto) [place] # Seg Neutrophils % Seg Neuts % (Manual) Lymphocytes % (Manual) Seg Neutrophils # Seg Neutrophils # Man Lymphocytes # (Manual) APTT POC ABG pH ABG pH POC ABG pCO2 POC ABG pO2 ABG pO2 ABG HCO3 ABG Base Excess ABG Hemoglobin VBG pH Oxyhemoglobin Sodium Potassium Chloride Carbon Dioxide BUN Creatinine Glucose POC Glucose 256 H 270 H 202 H Lactic Acid Calcium AST ALT Alkaline Phosphatase CK-MB (CK-2) CK-MB (CK-2) Rel Index Total Protein Albumin TSH Urine WBC (Auto) Salicylates 03/20/17 03/20/17 03/21/17 14:09 21:40 05:09 WBC RBC Hgb Hct MCV MCH RDW Plt Count Lymph % (Auto) [place] % (Auto) Eos % (Auto) [place] # Seg Neutrophils % Seg Neuts % (Manual) Lymphocytes % (Manual) Seg Neutrophils # Seg Neutrophils # Man Lymphocytes # (Manual) APTT POC ABG pH ABG pH POC ABG pCO2 POC ABG pO2 ABG pO2 ABG HCO3 ABG Base Excess ABG Hemoglobin VBG pH Oxyhemoglobin Sodium Potassium Chloride Carbon Dioxide BUN Creatinine Glucose POC Glucose 200 H 214 H 233 H Lactic Acid Calcium AST ALT Alkaline Phosphatase CK-MB (CK-2) CK-MB (CK-2) Rel Index Total Protein Albumin TSH Urine WBC (Auto) Salicylates 03/21/17 03/21/17 03/22/17 14:06 21:26 05:43 WBC RBC Hgb Hct MCV MCH RDW Plt Count Lymph % (Auto) [place] % (Auto) Eos % (Auto) [place] # Seg Neutrophils % Seg Neuts % (Manual) Lymphocytes % (Manual) Seg Neutrophils # Seg Neutrophils # Man Lymphocytes # (Manual) APTT POC ABG pH ABG pH POC ABG pCO2 POC ABG pO2 ABG pO2 ABG HCO3 ABG Base Excess ABG Hemoglobin VBG pH Oxyhemoglobin Sodium Potassium Chloride Carbon Dioxide BUN Creatinine Glucose POC Glucose 250 H 155 H 251 H Lactic Acid Calcium AST ALT Alkaline Phosphatase CK-MB (CK-2) CK-MB (CK-2) Rel Index Total Protein Albumin TSH Urine WBC (Auto) Salicylates 03/22/17 03/22/17 03/23/17 13:46 21:16 00:23 WBC RBC Hgb Hct MCV MCH RDW Plt Count Lymph % (Auto) [place] % (Auto) Eos % (Auto) [place] # Seg Neutrophils % Seg Neuts % (Manual) Lymphocytes % (Manual) Seg Neutrophils # Seg Neutrophils # Man Lymphocytes # (Manual) APTT POC ABG pH ABG pH POC ABG pCO2 POC ABG pO2 ABG pO2 ABG HCO3 ABG Base Excess ABG Hemoglobin VBG pH Oxyhemoglobin Sodium Potassium Chloride Carbon Dioxide BUN Creatinine Glucose POC Glucose 269 H 197 H 126 H Lactic Acid Calcium AST ALT Alkaline Phosphatase CK-MB (CK-2) CK-MB (CK-2) Rel Index Total Protein Albumin TSH Urine WBC (Auto) Salicylates 03/23/17 03/23/17 03/23/17 05:39 14:06 21:39 WBC RBC Hgb Hct MCV MCH RDW Plt Count Lymph % (Auto) [place] % (Auto) Eos % (Auto) [place] # Seg Neutrophils % Seg Neuts % (Manual) Lymphocytes % (Manual) Seg Neutrophils # Seg Neutrophils # Man Lymphocytes # (Manual) APTT POC ABG pH ABG pH POC ABG pCO2 POC ABG pO2 ABG pO2 ABG HCO3 ABG Base Excess ABG Hemoglobin VBG pH Oxyhemoglobin Sodium Potassium Chloride Carbon Dioxide BUN Creatinine Glucose POC Glucose 234 H 241 H 248 H Lactic Acid Calcium AST ALT Alkaline Phosphatase CK-MB (CK-2) CK-MB (CK-2) Rel Index Total Protein Albumin TSH Urine WBC (Auto) Salicylates 03/24/17 03/24/17 03/25/17 05:06 21:46 05:38 WBC RBC Hgb Hct MCV MCH RDW Plt Count Lymph % (Auto) [place] % (Auto) Eos % (Auto) [place] # Seg Neutrophils % Seg Neuts % (Manual) Lymphocytes % (Manual) Seg Neutrophils # Seg Neutrophils # Man Lymphocytes # (Manual) APTT POC ABG pH ABG pH POC ABG pCO2 POC ABG pO2 ABG pO2 ABG HCO3 ABG Base Excess ABG Hemoglobin VBG pH Oxyhemoglobin Sodium Potassium Chloride Carbon Dioxide BUN Creatinine Glucose POC Glucose 232 H 276 H 242 H Lactic Acid Calcium AST ALT Alkaline Phosphatase CK-MB (CK-2) CK-MB (CK-2) Rel Index Total Protein Albumin TSH Urine WBC (Auto) Salicylates 03/25/17 03/25/17 03/26/17 14:30 23:14 13:53 WBC RBC Hgb Hct MCV MCH RDW Plt Count Lymph % (Auto) [place] % (Auto) Eos % (Auto) [place] # Seg Neutrophils % Seg Neuts % (Manual) Lymphocytes % (Manual) Seg Neutrophils # Seg Neutrophils # Man Lymphocytes # (Manual) APTT POC ABG pH ABG pH POC ABG pCO2 POC ABG pO2 ABG pO2 ABG HCO3 ABG Base Excess ABG Hemoglobin VBG pH Oxyhemoglobin Sodium Potassium Chloride Carbon Dioxide BUN Creatinine Glucose POC Glucose 246 H 208 H 195 H Lactic Acid Calcium AST ALT Alkaline Phosphatase CK-MB (CK-2) CK-MB (CK-2) Rel Index Total Protein Albumin TSH Urine WBC (Auto) Salicylates 03/26/17 03/27/17 03/27/17 21:58 05:18 14:57 WBC RBC Hgb Hct MCV MCH RDW Plt Count Lymph % (Auto) [place] % (Auto) Eos % (Auto) [place] # Seg Neutrophils % Seg Neuts % (Manual) Lymphocytes % (Manual) Seg Neutrophils # Seg Neutrophils # Man Lymphocytes # (Manual) APTT POC ABG pH ABG pH POC ABG pCO2 POC ABG pO2 ABG pO2 ABG HCO3 ABG Base Excess ABG Hemoglobin VBG pH Oxyhemoglobin Sodium Potassium Chloride Carbon Dioxide BUN Creatinine Glucose POC Glucose 241 H 199 H 269 H Lactic Acid Calcium AST ALT Alkaline Phosphatase CK-MB (CK-2) CK-MB (CK-2) Rel Index Total Protein Albumin TSH Urine WBC (Auto) Salicylates 03/27/17 03/28/17 03/28/17 21:33 13:52 21:29 WBC RBC Hgb Hct MCV MCH RDW Plt Count Lymph % (Auto) [place] % (Auto) Eos % (Auto) [place] # Seg Neutrophils % Seg Neuts % (Manual) Lymphocytes % (Manual) Seg Neutrophils # Seg Neutrophils # Man Lymphocytes # (Manual) APTT POC ABG pH ABG pH POC ABG pCO2 POC ABG pO2 ABG pO2 ABG HCO3 ABG Base Excess ABG Hemoglobin VBG pH Oxyhemoglobin Sodium Potassium Chloride Carbon Dioxide BUN Creatinine Glucose POC Glucose 214 H 243 H 286 H Lactic Acid Calcium AST ALT Alkaline Phosphatase CK-MB (CK-2) CK-MB (CK-2) Rel Index Total Protein Albumin TSH Urine WBC (Auto) Salicylates 03/29/17 03/29/17 03/29/17 04:32 04:32 13:58 WBC RBC Hgb 10.6 L Hct 32.9 L MCV 78 L MCH 25 L RDW 17.6 H Plt Count Lymph % (Auto) 38.0 H [place] % (Auto) 9.7 H Eos % (Auto) [place] # Seg Neutrophils % Seg Neuts % (Manual) Lymphocytes % (Manual) Seg Neutrophils # Seg Neutrophils # Man Lymphocytes # (Manual) APTT POC ABG pH ABG pH POC ABG pCO2 POC ABG pO2 ABG pO2 ABG HCO3 ABG Base Excess ABG Hemoglobin VBG pH Oxyhemoglobin Sodium 132 L Potassium Chloride 94.0 L Carbon Dioxide BUN 28 H Creatinine 0.5 L Glucose 236 H POC Glucose 171 H Lactic Acid Calcium AST ALT 71 H Alkaline Phosphatase 391 H CK-MB (CK-2) CK-MB (CK-2) Rel Index Total Protein 8.3 H Albumin 2.9 L TSH Urine WBC (Auto) Salicylates 03/29/17 03/30/17 03/30/17 20:59 06:07 11:52 WBC RBC Hgb Hct MCV MCH RDW Plt Count Lymph % (Auto) [place] % (Auto) Eos % (Auto) [place] # Seg Neutrophils % Seg Neuts % (Manual) Lymphocytes % (Manual) Seg Neutrophils # Seg Neutrophils # Man Lymphocytes # (Manual) APTT POC ABG pH ABG pH POC ABG pCO2 POC ABG pO2 ABG pO2 ABG HCO3 ABG Base Excess ABG Hemoglobin VBG pH Oxyhemoglobin Sodium Potassium Chloride Carbon Dioxide BUN Creatinine Glucose POC Glucose 215 H 259 H 197 H Lactic Acid Calcium AST ALT Alkaline Phosphatase CK-MB (CK-2) CK-MB (CK-2) Rel Index Total Protein Albumin TSH Urine WBC (Auto) Salicylates 03/30/17 03/31/17 03/31/17 21:34 05:42 14:34 WBC RBC Hgb Hct MCV MCH RDW Plt Count Lymph % (Auto) [place] % (Auto) Eos % (Auto) [place] # Seg Neutrophils % Seg Neuts % (Manual) Lymphocytes % (Manual) Seg Neutrophils # Seg Neutrophils # Man Lymphocytes # (Manual) APTT POC ABG pH ABG pH POC ABG pCO2 POC ABG pO2 ABG pO2 ABG HCO3 ABG Base Excess ABG Hemoglobin VBG pH Oxyhemoglobin Sodium Potassium Chloride Carbon Dioxide BUN Creatinine Glucose POC Glucose 207 H 184 H 213 H Lactic Acid Calcium AST ALT Alkaline Phosphatase CK-MB (CK-2) CK-MB (CK-2) Rel Index Total Protein Albumin TSH Urine WBC (Auto) Salicylates 03/31/17 04/01/17 04/01/17 21:32 05:53 13:48 WBC RBC Hgb Hct MCV MCH RDW Plt Count Lymph % (Auto) [place] % (Auto) Eos % (Auto) [place] # Seg Neutrophils % Seg Neuts % (Manual) Lymphocytes % (Manual) Seg Neutrophils # Seg Neutrophils # Man Lymphocytes # (Manual) APTT POC ABG pH ABG pH POC ABG pCO2 POC ABG pO2 ABG pO2 ABG HCO3 ABG Base Excess ABG Hemoglobin VBG pH Oxyhemoglobin Sodium Potassium Chloride Carbon Dioxide BUN Creatinine Glucose POC Glucose 249 H 225 H 256 H Lactic Acid Calcium AST ALT Alkaline Phosphatase CK-MB (CK-2) CK-MB (CK-2) Rel Index Total Protein Albumin TSH Urine WBC (Auto) Salicylates 04/01/17 04/02/17 04/02/17 21:34 05:32 14:05 WBC RBC Hgb Hct MCV MCH RDW Plt Count Lymph % (Auto) [place] % (Auto) Eos % (Auto) [place] # Seg Neutrophils % Seg Neuts % (Manual) Lymphocytes % (Manual) Seg Neutrophils # Seg Neutrophils # Man Lymphocytes # (Manual) APTT POC ABG pH ABG pH POC ABG pCO2 POC ABG pO2 ABG pO2 ABG HCO3 ABG Base Excess ABG Hemoglobin VBG pH Oxyhemoglobin Sodium Potassium Chloride Carbon Dioxide BUN Creatinine Glucose POC Glucose 292 H 220 H 187 H Lactic Acid Calcium AST ALT Alkaline Phosphatase CK-MB (CK-2) CK-MB (CK-2) Rel Index Total Protein Albumin TSH Urine WBC (Auto) Salicylates 04/02/17 04/03/17 04/03/17 21:57 04:49 14:12 WBC RBC Hgb Hct MCV MCH RDW Plt Count Lymph % (Auto) [place] % (Auto) Eos % (Auto) [place] # Seg Neutrophils % Seg Neuts % (Manual) Lymphocytes % (Manual) Seg Neutrophils # Seg Neutrophils # Man Lymphocytes # (Manual) APTT POC ABG pH ABG pH POC ABG pCO2 POC ABG pO2 ABG pO2 ABG HCO3 ABG Base Excess ABG Hemoglobin VBG pH Oxyhemoglobin Sodium Potassium Chloride Carbon Dioxide BUN Creatinine Glucose POC Glucose 285 H 256 H 197 H Lactic Acid Calcium AST ALT Alkaline Phosphatase CK-MB (CK-2) CK-MB (CK-2) Rel Index Total Protein Albumin TSH Urine WBC (Auto) Salicylates 04/03/17 04/04/17 04/04/17 21:11 05:20 13:18 WBC RBC Hgb Hct MCV MCH RDW Plt Count Lymph % (Auto) [place] % (Auto) Eos % (Auto) [place] # Seg Neutrophils % Seg Neuts % (Manual) Lymphocytes % (Manual) Seg Neutrophils # Seg Neutrophils # Man Lymphocytes # (Manual) APTT POC ABG pH ABG pH POC ABG pCO2 POC ABG pO2 ABG pO2 ABG HCO3 ABG Base Excess ABG Hemoglobin VBG pH Oxyhemoglobin Sodium Potassium Chloride Carbon Dioxide BUN Creatinine Glucose POC Glucose 166 H 228 H 252 H Lactic Acid Calcium AST ALT Alkaline Phosphatase CK-MB (CK-2) CK-MB (CK-2) Rel Index Total Protein Albumin TSH Urine WBC (Auto) Salicylates 04/04/17 04/05/17 04/05/17 21:51 06:14 09:54 WBC RBC Hgb Hct MCV MCH RDW Plt Count Lymph % (Auto) [place] % (Auto) Eos % (Auto) [place] # Seg Neutrophils % Seg Neuts % (Manual) Lymphocytes % (Manual) Seg Neutrophils # Seg Neutrophils # Man Lymphocytes # (Manual) APTT POC ABG pH ABG pH POC ABG pCO2 POC ABG pO2 ABG pO2 ABG HCO3 ABG Base Excess ABG Hemoglobin VBG pH Oxyhemoglobin Sodium Potassium Chloride Carbon Dioxide BUN Creatinine Glucose POC Glucose 252 H 152 H 181 H Lactic Acid Calcium AST ALT Alkaline Phosphatase CK-MB (CK-2) CK-MB (CK-2) Rel Index Total Protein Albumin TSH Urine WBC (Auto) Salicylates 04/05/17 04/05/17 04/05/17 14:49 17:34 21:38 WBC RBC Hgb Hct MCV MCH RDW Plt Count Lymph % (Auto) [place] % (Auto) Eos % (Auto) [place] # Seg Neutrophils % Seg Neuts % (Manual) Lymphocytes % (Manual) Seg Neutrophils # Seg Neutrophils # Man Lymphocytes # (Manual) APTT POC ABG pH ABG pH POC ABG pCO2 POC ABG pO2 ABG pO2 ABG HCO3 ABG Base Excess ABG Hemoglobin VBG pH Oxyhemoglobin Sodium Potassium Chloride Carbon Dioxide BUN Creatinine Glucose POC Glucose 219 H 268 H 278 H Lactic Acid Calcium AST ALT Alkaline Phosphatase CK-MB (CK-2) CK-MB (CK-2) Rel Index Total Protein Albumin TSH Urine WBC (Auto) Salicylates 04/06/17 04/06/17 04/07/17 15:04 22:14 05:09 WBC RBC Hgb Hct MCV MCH RDW Plt Count Lymph % (Auto) [place] % (Auto) Eos % (Auto) [place] # Seg Neutrophils % Seg Neuts % (Manual) Lymphocytes % (Manual) Seg Neutrophils # Seg Neutrophils # Man Lymphocytes # (Manual) APTT POC ABG pH ABG pH POC ABG pCO2 POC ABG pO2 ABG pO2 ABG HCO3 ABG Base Excess ABG Hemoglobin VBG pH Oxyhemoglobin Sodium Potassium Chloride Carbon Dioxide BUN Creatinine Glucose POC Glucose 285 H 106 H 334 H Lactic Acid Calcium AST ALT Alkaline Phosphatase CK-MB (CK-2) CK-MB (CK-2) Rel Index Total Protein Albumin TSH Urine WBC (Auto) Salicylates 04/07/17 04/07/17 04/08/17 14:45 21:48 05:28 WBC RBC Hgb Hct MCV MCH RDW Plt Count Lymph % (Auto) [place] % (Auto) Eos % (Auto) [place] # Seg Neutrophils % Seg Neuts % (Manual) Lymphocytes % (Manual) Seg Neutrophils # Seg Neutrophils # Man Lymphocytes # (Manual) APTT POC ABG pH ABG pH POC ABG pCO2 POC ABG pO2 ABG pO2 ABG HCO3 ABG Base Excess ABG Hemoglobin VBG pH Oxyhemoglobin Sodium Potassium Chloride Carbon Dioxide BUN Creatinine Glucose POC Glucose 173 H 304 H 314 H Lactic Acid Calcium AST ALT Alkaline Phosphatase CK-MB (CK-2) CK-MB (CK-2) Rel Index Total Protein Albumin TSH Urine WBC (Auto) Salicylates 04/08/17 04/08/17 04/08/17 15:57 16:17 22:21 WBC RBC Hgb Hct MCV MCH RDW Plt Count Lymph % (Auto) [place] % (Auto) Eos % (Auto) [place] # Seg Neutrophils % Seg Neuts % (Manual) Lymphocytes % (Manual) Seg Neutrophils # Seg Neutrophils # Man Lymphocytes # (Manual) APTT POC ABG pH ABG pH POC ABG pCO2 POC ABG pO2 ABG pO2 ABG HCO3 ABG Base Excess ABG Hemoglobin VBG pH Oxyhemoglobin Sodium Potassium Chloride Carbon Dioxide BUN Creatinine Glucose POC Glucose 356 H 337 H 323 H Lactic Acid Calcium AST ALT Alkaline Phosphatase CK-MB (CK-2) CK-MB (CK-2) Rel Index Total Protein Albumin TSH Urine WBC (Auto) Salicylates 04/09/17 04/09/17 04/09/17 06:19 15:30 21:52 WBC RBC Hgb Hct MCV MCH RDW Plt Count Lymph % (Auto) [place] % (Auto) Eos % (Auto) [place] # Seg Neutrophils % Seg Neuts % (Manual) Lymphocytes % (Manual) Seg Neutrophils # Seg Neutrophils # Man Lymphocytes # (Manual) APTT POC ABG pH ABG pH POC ABG pCO2 POC ABG pO2 ABG pO2 ABG HCO3 ABG Base Excess ABG Hemoglobin VBG pH Oxyhemoglobin Sodium Potassium Chloride Carbon Dioxide BUN Creatinine Glucose POC Glucose 340 H 332 H 341 H Lactic Acid Calcium AST ALT Alkaline Phosphatase CK-MB (CK-2) CK-MB (CK-2) Rel Index Total Protein Albumin TSH Urine WBC (Auto) Salicylates 04/10/17 04/10/17 04/10/17 01:53 05:33 17:40 WBC RBC Hgb Hct MCV MCH RDW Plt Count Lymph % (Auto) [place] % (Auto) Eos % (Auto) [place] # Seg Neutrophils % Seg Neuts % (Manual) Lymphocytes % (Manual) Seg Neutrophils # Seg Neutrophils # Man Lymphocytes # (Manual) APTT POC ABG pH ABG pH POC ABG pCO2 POC ABG pO2 ABG pO2 ABG HCO3 ABG Base Excess ABG Hemoglobin VBG pH Oxyhemoglobin Sodium Potassium Chloride Carbon Dioxide BUN Creatinine Glucose POC Glucose 261 H 277 H 304 H Lactic Acid Calcium AST ALT Alkaline Phosphatase CK-MB (CK-2) CK-MB (CK-2) Rel Index Total Protein Albumin TSH Urine WBC (Auto) Salicylates 04/10/17 04/11/17 04/11/17 21:29 05:28 14:02 WBC RBC Hgb Hct MCV MCH RDW Plt Count Lymph % (Auto) [place] % (Auto) Eos % (Auto) [place] # Seg Neutrophils % Seg Neuts % (Manual) Lymphocytes % (Manual) Seg Neutrophils # Seg Neutrophils # Man Lymphocytes # (Manual) APTT POC ABG pH ABG pH POC ABG pCO2 POC ABG pO2 ABG pO2 ABG HCO3 ABG Base Excess ABG Hemoglobin VBG pH Oxyhemoglobin Sodium Potassium Chloride Carbon Dioxide BUN Creatinine Glucose POC Glucose 361 H 204 H 236 H Lactic Acid Calcium AST ALT Alkaline Phosphatase CK-MB (CK-2) CK-MB (CK-2) Rel Index Total Protein Albumin TSH Urine WBC (Auto) Salicylates 04/11/17 04/12/17 04/12/17 21:43 05:00 11:53 WBC RBC Hgb Hct MCV MCH RDW Plt Count Lymph % (Auto) [place] % (Auto) Eos % (Auto) [place] # Seg Neutrophils % Seg Neuts % (Manual) Lymphocytes % (Manual) Seg Neutrophils # Seg Neutrophils # Man Lymphocytes # (Manual) APTT POC ABG pH ABG pH POC ABG pCO2 POC ABG pO2 ABG pO2 ABG HCO3 ABG Base Excess ABG Hemoglobin VBG pH Oxyhemoglobin Sodium Potassium Chloride Carbon Dioxide BUN Creatinine Glucose POC Glucose 287 H 294 H 265 H Lactic Acid Calcium AST ALT Alkaline Phosphatase CK-MB (CK-2) CK-MB (CK-2) Rel Index Total Protein Albumin TSH Urine WBC (Auto) Salicylates 04/12/17 04/12/17 04/13/17 21:21 23:44 06:05 WBC RBC Hgb Hct MCV MCH RDW Plt Count Lymph % (Auto) [place] % (Auto) Eos % (Auto) [place] # Seg Neutrophils % Seg Neuts % (Manual) Lymphocytes % (Manual) Seg Neutrophils # Seg Neutrophils # Man Lymphocytes # (Manual) APTT POC ABG pH ABG pH POC ABG pCO2 POC ABG pO2 ABG pO2 ABG HCO3 ABG Base Excess ABG Hemoglobin VBG pH Oxyhemoglobin Sodium Potassium Chloride Carbon Dioxide BUN Creatinine Glucose POC Glucose 289 H 348 H 326 H Lactic Acid Calcium AST ALT Alkaline Phosphatase CK-MB (CK-2) CK-MB (CK-2) Rel Index Total Protein Albumin TSH Urine WBC (Auto) Salicylates 04/13/17 04/13/17 04/14/17 13:54 21:15 05:49 WBC RBC Hgb Hct MCV MCH RDW Plt Count Lymph % (Auto) [place] % (Auto) Eos % (Auto) [place] # Seg Neutrophils % Seg Neuts % (Manual) Lymphocytes % (Manual) Seg Neutrophils # Seg Neutrophils # Man Lymphocytes # (Manual) APTT POC ABG pH ABG pH POC ABG pCO2 POC ABG pO2 ABG pO2 ABG HCO3 ABG Base Excess ABG Hemoglobin VBG pH Oxyhemoglobin Sodium Potassium Chloride Carbon Dioxide BUN Creatinine Glucose POC Glucose 326 H 263 H 319 H Lactic Acid Calcium AST ALT Alkaline Phosphatase CK-MB (CK-2) CK-MB (CK-2) Rel Index Total Protein Albumin TSH Urine WBC (Auto) Salicylates 04/14/17 04/14/17 04/15/17 13:26 23:13 14:24 WBC RBC Hgb Hct MCV MCH RDW Plt Count Lymph % (Auto) [place] % (Auto) Eos % (Auto) [place] # Seg Neutrophils % Seg Neuts % (Manual) Lymphocytes % (Manual) Seg Neutrophils # Seg Neutrophils # Man Lymphocytes # (Manual) APTT POC ABG pH ABG pH POC ABG pCO2 POC ABG pO2 ABG pO2 ABG HCO3 ABG Base Excess ABG Hemoglobin VBG pH Oxyhemoglobin Sodium Potassium Chloride Carbon Dioxide BUN Creatinine Glucose POC Glucose 207 H 365 H 308 H Lactic Acid Calcium AST ALT Alkaline Phosphatase CK-MB (CK-2) CK-MB (CK-2) Rel Index Total Protein Albumin TSH Urine WBC (Auto) Salicylates 04/15/17 04/15/17 04/15/17 21:00 22:18 23:12 WBC RBC Hgb Hct MCV MCH RDW Plt Count Lymph % (Auto) [place] % (Auto) Eos % (Auto) [place] # Seg Neutrophils % Seg Neuts % (Manual) Lymphocytes % (Manual) Seg Neutrophils # Seg Neutrophils # Man Lymphocytes # (Manual) APTT POC ABG pH ABG pH POC ABG pCO2 POC ABG pO2 ABG pO2 ABG HCO3 ABG Base Excess ABG Hemoglobin VBG pH Oxyhemoglobin Sodium Potassium Chloride Carbon Dioxide BUN Creatinine Glucose POC Glucose 407 H 287 H 325 H Lactic Acid Calcium AST ALT Alkaline Phosphatase CK-MB (CK-2) CK-MB (CK-2) Rel Index Total Protein Albumin TSH Urine WBC (Auto) Salicylates 04/16/17 04/16/17 04/16/17 05:30 10:07 14:26 WBC RBC Hgb Hct MCV MCH RDW Plt Count Lymph % (Auto) [place] % (Auto) Eos % (Auto) [place] # Seg Neutrophils % Seg Neuts % (Manual) Lymphocytes % (Manual) Seg Neutrophils # Seg Neutrophils # Man Lymphocytes # (Manual) APTT POC ABG pH ABG pH POC ABG pCO2 POC ABG pO2 ABG pO2 ABG HCO3 ABG Base Excess ABG Hemoglobin VBG pH Oxyhemoglobin Sodium Potassium Chloride Carbon Dioxide BUN Creatinine Glucose POC Glucose 304 H 217 H 344 H Lactic Acid Calcium AST ALT Alkaline Phosphatase CK-MB (CK-2) CK-MB (CK-2) Rel Index Total Protein Albumin TSH Urine WBC (Auto) Salicylates 04/16/17 04/17/17 04/17/17 21:25 05:12 14:19 WBC RBC Hgb Hct MCV MCH RDW Plt Count Lymph % (Auto) [place] % (Auto) Eos % (Auto) [place] # Seg Neutrophils % Seg Neuts % (Manual) Lymphocytes % (Manual) Seg Neutrophils # Seg Neutrophils # Man Lymphocytes # (Manual) APTT POC ABG pH ABG pH POC ABG pCO2 POC ABG pO2 ABG pO2 ABG HCO3 ABG Base Excess ABG Hemoglobin VBG pH Oxyhemoglobin Sodium Potassium Chloride Carbon Dioxide BUN Creatinine Glucose POC Glucose 305 H 233 H 324 H Lactic Acid Calcium AST ALT Alkaline Phosphatase CK-MB (CK-2) CK-MB (CK-2) Rel Index Total Protein Albumin TSH Urine WBC (Auto) Salicylates 04/17/17 04/18/17 04/18/17 21:42 06:21 14:08 WBC RBC Hgb Hct MCV MCH RDW Plt Count Lymph % (Auto) [place] % (Auto) Eos % (Auto) [place] # Seg Neutrophils % Seg Neuts % (Manual) Lymphocytes % (Manual) Seg Neutrophils # Seg Neutrophils # Man Lymphocytes # (Manual) APTT POC ABG pH ABG pH POC ABG pCO2 POC ABG pO2 ABG pO2 ABG HCO3 ABG Base Excess ABG Hemoglobin VBG pH Oxyhemoglobin Sodium Potassium Chloride Carbon Dioxide BUN Creatinine Glucose POC Glucose 270 H 308 H 290 H Lactic Acid Calcium AST ALT Alkaline Phosphatase CK-MB (CK-2) CK-MB (CK-2) Rel Index Total Protein Albumin TSH Urine WBC (Auto) Salicylates 04/18/17 04/19/17 04/19/17 21:50 05:20 13:59 WBC RBC Hgb Hct MCV MCH RDW Plt Count Lymph % (Auto) [place] % (Auto) Eos % (Auto) [place] # Seg Neutrophils % Seg Neuts % (Manual) Lymphocytes % (Manual) Seg Neutrophils # Seg Neutrophils # Man Lymphocytes # (Manual) APTT POC ABG pH ABG pH POC ABG pCO2 POC ABG pO2 ABG pO2 ABG HCO3 ABG Base Excess ABG Hemoglobin VBG pH Oxyhemoglobin Sodium Potassium Chloride Carbon Dioxide BUN Creatinine Glucose POC Glucose 167 H 372 H 321 H Lactic Acid Calcium AST ALT Alkaline Phosphatase CK-MB (CK-2) CK-MB (CK-2) Rel Index Total Protein Albumin TSH Urine WBC (Auto) Salicylates 04/19/17 04/20/17 04/20/17 21:16 14:18 21:34 WBC RBC Hgb Hct MCV MCH RDW Plt Count Lymph % (Auto) [place] % (Auto) Eos % (Auto) [place] # Seg Neutrophils % Seg Neuts % (Manual) Lymphocytes % (Manual) Seg Neutrophils # Seg Neutrophils # Man Lymphocytes # (Manual) APTT POC ABG pH ABG pH POC ABG pCO2 POC ABG pO2 ABG pO2 ABG HCO3 ABG Base Excess ABG Hemoglobin VBG pH Oxyhemoglobin Sodium Potassium Chloride Carbon Dioxide BUN Creatinine Glucose POC Glucose 182 H 218 H 121 H Lactic Acid Calcium AST ALT Alkaline Phosphatase CK-MB (CK-2) CK-MB (CK-2) Rel Index Total Protein Albumin TSH Urine WBC (Auto) Salicylates 04/21/17 04/21/17 04/21/17 00:08 05:16 12:41 WBC RBC Hgb Hct MCV MCH RDW Plt Count Lymph % (Auto) [place] % (Auto) Eos % (Auto) [place] # Seg Neutrophils % Seg Neuts % (Manual) Lymphocytes % (Manual) Seg Neutrophils # Seg Neutrophils # Man Lymphocytes # (Manual) APTT POC ABG pH ABG pH POC ABG pCO2 POC ABG pO2 ABG pO2 ABG HCO3 ABG Base Excess ABG Hemoglobin VBG pH Oxyhemoglobin Sodium Potassium Chloride Carbon Dioxide BUN Creatinine Glucose POC Glucose 128 H 120 H 216 H Lactic Acid Calcium AST ALT Alkaline Phosphatase CK-MB (CK-2) CK-MB (CK-2) Rel Index Total Protein Albumin TSH Urine WBC (Auto) Salicylates 04/21/17 04/22/17 04/22/17 23:40 14:12 23:38 WBC RBC Hgb Hct MCV MCH RDW Plt Count Lymph % (Auto) [place] % (Auto) Eos % (Auto) [place] # Seg Neutrophils % Seg Neuts % (Manual) Lymphocytes % (Manual) Seg Neutrophils # Seg Neutrophils # Man Lymphocytes # (Manual) APTT POC ABG pH ABG pH POC ABG pCO2 POC ABG pO2 ABG pO2 ABG HCO3 ABG Base Excess ABG Hemoglobin VBG pH Oxyhemoglobin Sodium Potassium Chloride Carbon Dioxide BUN Creatinine Glucose POC Glucose 157 H 242 H 117 H Lactic Acid Calcium AST ALT Alkaline Phosphatase CK-MB (CK-2) CK-MB (CK-2) Rel Index Total Protein Albumin TSH Urine WBC (Auto) Salicylates 04/23/17 04/23/17 04/24/17 05:18 14:01 03:24 WBC RBC Hgb Hct MCV MCH RDW Plt Count Lymph % (Auto) [place] % (Auto) Eos % (Auto) [place] # Seg Neutrophils % Seg Neuts % (Manual) Lymphocytes % (Manual) Seg Neutrophils # Seg Neutrophils # Man Lymphocytes # (Manual) APTT POC ABG pH ABG pH POC ABG pCO2 POC ABG pO2 ABG pO2 ABG HCO3 ABG Base Excess ABG Hemoglobin VBG pH Oxyhemoglobin Sodium Potassium Chloride Carbon Dioxide BUN Creatinine Glucose POC Glucose 163 H 57 L 177 H Lactic Acid Calcium AST ALT Alkaline Phosphatase CK-MB (CK-2) CK-MB (CK-2) Rel Index Total Protein Albumin TSH Urine WBC (Auto) Salicylates 04/24/17 04/24/17 04/24/17 04:00 04:00 06:33 WBC RBC Hgb 9.9 L Hct 30.0 L MCV 79 L MCH 26 L RDW 17.1 H Plt Count 625 H Lymph % (Auto) [place] % (Auto) 8.4 H Eos % (Auto) [place] # Seg Neutrophils % Seg Neuts % (Manual) Lymphocytes % (Manual) Seg Neutrophils # Seg Neutrophils # Man Lymphocytes # (Manual) APTT POC ABG pH ABG pH POC ABG pCO2 POC ABG pO2 ABG pO2 ABG HCO3 ABG Base Excess ABG Hemoglobin VBG pH Oxyhemoglobin Sodium 136 L Potassium Chloride 94.9 L Carbon Dioxide BUN 40 H Creatinine 0.6 L Glucose 176 H POC Glucose 230 H Lactic Acid Calcium AST 67 H ALT Alkaline Phosphatase 294 H CK-MB (CK-2) CK-MB (CK-2) Rel Index Total Protein 9.0 H Albumin 2.5 L TSH Urine WBC (Auto) Salicylates 04/24/17 04/25/17 04/25/17 13:50 00:22 02:55 WBC RBC 3.54 L Hgb 9.0 L Hct 27.9 L MCV 79 L MCH 26 L RDW 17.5 H Plt Count 574 H Lymph % (Auto) [place] % (Auto) 10.4 H Eos % (Auto) [place] # 1.0 H Seg Neutrophils % Seg Neuts % (Manual) Lymphocytes % (Manual) Seg Neutrophils # Seg Neutrophils # Man Lymphocytes # (Manual) APTT POC ABG pH ABG pH POC ABG pCO2 POC ABG pO2 ABG pO2 ABG HCO3 ABG Base Excess ABG Hemoglobin VBG pH Oxyhemoglobin Sodium Potassium Chloride Carbon Dioxide BUN Creatinine Glucose POC Glucose 116 H < 40 L Lactic Acid Calcium AST ALT Alkaline Phosphatase CK-MB (CK-2) CK-MB (CK-2) Rel Index Total Protein Albumin TSH Urine WBC (Auto) Salicylates 04/25/17 02:55 WBC RBC Hgb Hct MCV MCH RDW Plt Count Lymph % (Auto) [place] % (Auto) Eos % (Auto) [place] # Seg Neutrophils % Seg Neuts % (Manual) Lymphocytes % (Manual) Seg Neutrophils # Seg Neutrophils # Man Lymphocytes # (Manual) APTT POC ABG pH ABG pH POC ABG pCO2 POC ABG pO2 ABG pO2 ABG HCO3 ABG Base Excess ABG Hemoglobin VBG pH Oxyhemoglobin Sodium Potassium Chloride 96.2 L Carbon Dioxide BUN 39 H Creatinine 0.7 L Glucose 125 H POC Glucose Lactic Acid Calcium AST ALT Alkaline Phosphatase 247 H CK-MB (CK-2) CK-MB (CK-2) Rel Index Total Protein Albumin 2.7 L TSH Urine WBC (Auto) Salicylates
[2017-04-25] MEDS: LEVEMIR (NF) SUB-Q SCH (12:46)
--- NOTE | 2017-04-25 15:08 | Progress Note ---
Assessment and Plan 51 YO Male with CKD,HTN, DM presents to ED after found down and unresponsive by his neighbor, who subsequently called EMS. Upon arrival, patient found unresponsive on the floor with a serum glucose of 21, patient has a known history of alcohol abuse and delirium tremens. The patient was administered D5 approximate 500 mls during transport without change in mental status/level of consciousness. Pt seen and evaluated in ED was was found to be unable to protect his airway. Pt intubated and placed on vent support. Pt found to have evidence of hypothyroidism. 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 very poor prognosis - Metabolic encephalopathy: Supportive care - Hypoglycemia/hypothermia, resolved - Acute respiratory failure mechanical ventilator greater than 96 hours: wean as tolerated. Pulm. following - Hyponatremia: corrected - Hypothyroidism: On levothyroxine - IDDM : continue with SSI - Anemia of chronic disease. will Tend - Hypertension: Controlled - Cont supportive care and current medication. Monitor vitals. Not weaniable and tach cannot be place per Pulm - Patient is DNR- needs guardianship from the state to give consent for further management, as has no family to give consent. We will check labs. Poor prognosis, Subjective Date of service: 04/25/17 Principal diagnosis: Acute respiratory failure,encephalopathy Interval history: Remains unresponsive. Consulted with patient's nurse. No overnight event reported to me by patient's nurse. Consultants as well as laboratory and radiological data reviewed. Objective - Exam Narrative Exam: Constitutional: Intubated on vent supported. In no distress Head: Normocephalic atraumatic Eyes: Pupils are equal round and reactive to light Nose: No enlarged turbinates, no septal deviation. Mouth: Moist mucous membranes. Neck: Supple no thyromegaly. No bruit. No JVD Heart: Regular rate and rhythm, S1-S2 abnormal. No rubs murmurs or gallop Lungs: Clear to auscultation bilaterally no rales or rhonchi Abdomen: Soft nontender both his upper extremities no edema orclubbing. Extremities: No edema no cyanosis and no clubbing. Neuro: Unresponsive . Skin: No rashes no hyperemic spots - Constitutional Vitals: Vital Signs - 12hr 04/25/17 04/25/17 04/25/17 03:31 04:00 04:45 Temperature 98.3 F Pulse Rate 81 78 81 Pulse Rate [ 72 Left] Respiratory 14 12 Rate Blood Pressure 109/69 115/79 108/66 O2 Sat by Pulse 100 99 100 Oximetry 04/25/17 04/25/17 04/25/17 06:00 07:23 08:00 Temperature Pulse Rate 82 86 84 Pulse Rate [ Left] Respiratory 13 16 17 Rate Blood Pressure 121/80 121/80 127/77 O2 Sat by Pulse 99 98 100 Oximetry 04/25/17 04/25/17 04/25/17 08:18 08:25 10:00 Temperature 97.9 F Pulse Rate 82 Pulse Rate [ Left] Respiratory 15 Rate Blood Pressure 117/76 O2 Sat by Pulse 100 100 Oximetry 04/25/17 04/25/17 11:00 12:00 Temperature Pulse Rate 83 84 Pulse Rate [ Left] Respiratory 16 Rate Blood Pressure 119/78 O2 Sat by Pulse 98 98 Oximetry - Labs CBC & Chem 7: 04/25/17 02:55 04/25/17 02:55 Labs: Abnormal lab results 04/24/17 04/25/17 04/25/17 Range/Units 13:50 00:22 02:55 RBC 3.54 L (3.65-5.03) M/mm3 Hgb 9.0 L (11.8-15.2) gm/dl Hct 27.9 L (35.5-45.6) % MCV 79 L (84-94) fl MCH 26 L (28-32) pg RDW 17.5 H (13.2-15.2) % Plt Count 574 H (140-440) K/mm3 [place] % (Auto) 10.4 H (0.0-7.3) % [place] # 1.0 H (0.0-0.8) K/mm3 Chloride (98-107) mmol/L BUN (9-20) mg/dL Creatinine (0.8-1.5) mg/dL Glucose (75-100) mg/dL POC Glucose 116 H < 40 L (70-105) Alkaline Phosphatase (35-129) units/L Albumin (3.9-5) g/dL 04/25/17 04/25/17 Range/Units 02:55 11:15 RBC (3.65-5.03) M/mm3 Hgb (11.8-15.2) gm/dl Hct (35.5-45.6) % MCV (84-94) fl MCH (28-32) pg RDW (13.2-15.2) % Plt Count (140-440) K/mm3 [place] % (Auto) (0.0-7.3) % [place] # (0.0-0.8) K/mm3 Chloride 96.2 L (98-107) mmol/L BUN 39 H (9-20) mg/dL Creatinine 0.7 L (0.8-1.5) mg/dL Glucose 125 H (75-100) mg/dL POC Glucose 227 H (70-105) Alkaline Phosphatase 247 H (35-129) units/L Albumin 2.7 L (3.9-5) g/dL
[2017-04-26] MEDS ORDERED: D50W (25GM) Syringe IV ONE (06:55)
[2017-04-26] MEDS: HumuLIN R SUB-Q SCH ×3 (06:59→23:55)
[2017-04-26] MEDS: SYNTHROID PO SCH (06:59)
[2017-04-26 07:56] LABS: Basophils # (Auto) 0.1 K/mm3 (0.0-0.1); Basophils % (Auto) 0.7 % (0.0-1.8); Eosinophils # (Auto) 0.1 K/mm3 (0.0-0.4); Eosinophils % (Auto) 0.9 % (0.0-4.3); Hematocrit 28.1 % (35.5-45.6); Hemoglobin 9.1 gm/dl (11.8-15.2); Lymphocytes # (Auto) 1.9 K/mm3 (1.2-5.4); Lymphocytes % (Auto) 18.6 % (13.4-35.0); Mean Corpuscular HGB Conc 32 % (32-34); Mean Corpuscular Volume 78 fl (84-94); Monocytes % (Auto) 9.2 % (0.0-7.3); Platelet Count 594 K/mm3 (140-440); Red Blood Count 3.61 M/mm3 (3.65-5.03); Red Cell Distribution Width 17.4 % (13.2-15.2)
[2017-04-26 08:04] LABS: Mean Corpuscular Hemoglobin 25 pg (28-32)
[2017-04-26 08:29] LABS: Alanine Aminotransferase 36 units/L (7-56); Albumin 2.7 g/dL (3.9-5); BUN/Creatinine Ratio 60; Blood Urea Nitrogen 42 mg/dL (9-20); Calcium 9.5 mg/dL (8.4-10.2); Hemolysis Index 0
--- NOTE | 2017-04-26 08:49 | Progress Note ---
Assessment and Plan 51 y/o male found down, concern for sepsis and now encephalopathic requiring mechanical ventilation. No new recommendations for today. Please see below. 1. continue supportive care 2. 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 I am aware that he is an AND but trach will not fix this problem and is not in my professional opinion the right thing to do for this patient. Most likely he will never be weaned from the vent and will remain in a persistent vegatative state. 3. Overall prognosis continues to be poor. 4. Will not check labs 5. Vitals should be qshift 6. This patient's possibility of awakening from this persistent vegatative is unlikely. The current status is that there has been paper work filed to obtain guardianship so that end of life decisions can be made. Supportive care is reasonable but checking daily labs and doing other invasive things to this patient I do not feel is morally and ethically appropriate. 7. Currently patient does not have IV access and is not requiring any medical therapy. Will not place another one at this time. 8. Per CM, going to court on 05/03/17 for Guardianship. Subjective Date of service: 04/26/17 Principal diagnosis: Acute respiratory failure,encephalopathy Interval history: Placed back on Vent yesterday around 11:00 secondary to apnea. This is a daily event for the patient. Mental status is completely unchanged as he remains unresponsive. Objective Vital Signs - 12hr 04/25/17 04/25/17 04/26/17 22:00 23:18 00:00 Temperature 98.1 F Pulse Rate 86 93 H Respiratory 16 Rate Blood Pressure 114/74 114/74 O2 Sat by Pulse 97 99 Oximetry 04/26/17 04/26/17 04/26/17 00:01 02:00 03:19 Temperature 97.9 F Pulse Rate 93 H 93 H Respiratory 14 16 Rate Blood Pressure 116/92 118/76 O2 Sat by Pulse 95 97 Oximetry 04/26/17 04/26/17 04/26/17 04:00 04:20 06:00 Temperature Pulse Rate 87 97 H 83 Respiratory 12 15 Rate Blood Pressure 121/73 118/76 117/70 O2 Sat by Pulse 100 100 97 Oximetry 04/26/17 08:00 Temperature 98.6 F Pulse Rate Respiratory Rate Blood Pressure O2 Sat by Pulse Oximetry Constitutional: no acute distress, alert Eyes: non-icteric ENT: oropharynx moist, other (ETT in position) Neck: supple, no JVD Effort: normal Ascultation: Bilateral: clear, diminished breath sounds Cardiovascular: regular rate and rhythm (no mrg) Gastrointestinal: normoactive bowel sounds, soft, non-tender, non-distended Integumentary: normal Extremities: no cyanosis, no edema, pink and warm Neurologic: pupils equal and round, other (not following commands,mild response to pain) Psychiatric: other (unable to obtain) CBC and BMP: 04/26/17 07:27 04/26/17 07:27 ABG, PT/INR, D-dimer: ABG POC ABG pH 7.442 (7.35-7.45) 01/31/17 18:55 ABG pH 7.420 pH Units (7.350-7.450) 01/17/17 04:35 POC ABG pCO2 32.8 (35-45) L 01/31/17 18:55 ABG pCO2 34.5 mm Hg 01/17/17 04:35 POC ABG pO2 82 (80-105) 01/31/17 18:55 ABG pO2 160.3 mm Hg (80.0-90.0) H 01/17/17 04:35 POC ABG HCO3 22.4 01/31/17 18:55 POC ABG Total CO2 23 01/31/17 18:55 POC ABG O2 Sat 97 01/31/17 18:55 ABG O2 Saturation 99.0 % (95.0-99.0) 01/17/17 04:35 PT/INR, D-dimer PT 14.1 Sec. (12.2-14.9) 01/17/17 04:10 INR 1.04 (0.87-1.13) 01/17/17 04:10 Abnormal lab findings: Abnormal Labs 01/09/17 01/09/17 01/09/17 10:16 10:16 10:16 WBC RBC Hgb 9.7 L Hct 28.4 L MCV 76 L MCH 26 L RDW 17.2 H Plt Count 448 H Lymph % (Auto) [place] % (Auto) Eos % (Auto) [place] # Seg Neutrophils % 79.5 H Seg Neuts % (Manual) Lymphocytes % (Manual) Seg Neutrophils # Seg Neutrophils # Man Lymphocytes # (Manual) APTT 39.6 H POC ABG pH ABG pH POC ABG pCO2 POC ABG pO2 ABG pO2 ABG HCO3 ABG Base Excess ABG Hemoglobin VBG pH Oxyhemoglobin Sodium 132 L Potassium Chloride 96.7 L Carbon Dioxide 21 L BUN 34 H Creatinine Glucose POC Glucose Lactic Acid Calcium 8.3 L AST ALT Alkaline Phosphatase 151 H CK-MB (CK-2) 7.1 H CK-MB (CK-2) Rel Index 5.2 H Total Protein Albumin 3.3 L TSH Urine WBC (Auto) Salicylates 01/09/17 01/09/17 01/09/17 10:16 10:16 10:16 WBC RBC Hgb Hct MCV MCH RDW Plt Count Lymph % (Auto) [place] % (Auto) Eos % (Auto) [place] # Seg Neutrophils % Seg Neuts % (Manual) Lymphocytes % (Manual) Seg Neutrophils # Seg Neutrophils # Man Lymphocytes # (Manual) APTT POC ABG pH ABG pH POC ABG pCO2 POC ABG pO2 ABG pO2 ABG HCO3 ABG Base Excess ABG Hemoglobin VBG pH 7.284 L Oxyhemoglobin Sodium Potassium Chloride Carbon Dioxide BUN Creatinine Glucose POC Glucose Lactic Acid Calcium AST ALT Alkaline Phosphatase CK-MB (CK-2) CK-MB (CK-2) Rel Index Total Protein Albumin TSH 52.800 H Urine WBC (Auto) Salicylates < 0.3 L 01/09/17 01/09/17 01/09/17 10:23 11:14 12:49 WBC RBC Hgb Hct MCV MCH RDW Plt Count Lymph % (Auto) [place] % (Auto) Eos % (Auto) [place] # Seg Neutrophils % Seg Neuts % (Manual) Lymphocytes % (Manual) Seg Neutrophils # Seg Neutrophils # Man Lymphocytes # (Manual) APTT POC ABG pH ABG pH POC ABG pCO2 POC ABG pO2 643 H ABG pO2 ABG HCO3 ABG Base Excess ABG Hemoglobin VBG pH Oxyhemoglobin Sodium Potassium Chloride Carbon Dioxide BUN Creatinine Glucose POC Glucose < 40 L Lactic Acid Calcium AST ALT Alkaline Phosphatase CK-MB (CK-2) CK-MB (CK-2) Rel Index Total Protein Albumin TSH Urine WBC (Auto) 61.0 H Salicylates 01/09/17 01/09/17 01/09/17 13:13 14:21 15:09 WBC RBC Hgb Hct MCV MCH RDW Plt Count Lymph % (Auto) [place] % (Auto) Eos % (Auto) [place] # Seg Neutrophils % Seg Neuts % (Manual) Lymphocytes % (Manual) Seg Neutrophils # Seg Neutrophils # Man Lymphocytes # (Manual) APTT POC ABG pH ABG pH POC ABG pCO2 POC ABG pO2 ABG pO2 ABG HCO3 ABG Base Excess ABG Hemoglobin VBG pH Oxyhemoglobin Sodium Potassium Chloride Carbon Dioxide BUN Creatinine Glucose POC Glucose 128 H 65 L 120 H Lactic Acid Calcium AST ALT Alkaline Phosphatase CK-MB (CK-2) CK-MB (CK-2) Rel Index Total Protein Albumin TSH Urine WBC (Auto) Salicylates 01/09/17 01/09/17 01/10/17 16:28 17:14 04:30 WBC 24.1 H RBC 3.38 L Hgb 8.5 L Hct 26.0 L MCV 77 L MCH 25 L RDW 17.9 H Plt Count 474 H Lymph % (Auto) [place] % (Auto) Eos % (Auto) [place] # Seg Neutrophils % Seg Neuts % (Manual) 88.0 H Lymphocytes % (Manual) 4.0 L Seg Neutrophils # Seg Neutrophils # Man 21.2 H Lymphocytes # (Manual) 1.0 L APTT POC ABG pH ABG pH POC ABG pCO2 POC ABG pO2 ABG pO2 ABG HCO3 ABG Base Excess ABG Hemoglobin VBG pH Oxyhemoglobin Sodium Potassium Chloride Carbon Dioxide BUN Creatinine Glucose POC Glucose 44 L 112 H Lactic Acid Calcium AST ALT Alkaline Phosphatase CK-MB (CK-2) CK-MB (CK-2) Rel Index Total Protein Albumin TSH Urine WBC (Auto) Salicylates 01/10/17 01/10/17 01/10/17 04:30 05:41 05:45 WBC RBC Hgb Hct MCV MCH RDW Plt Count Lymph % (Auto) [place] % (Auto) Eos % (Auto) [place] # Seg Neutrophils % Seg Neuts % (Manual) Lymphocytes % (Manual) Seg Neutrophils # Seg Neutrophils # Man Lymphocytes # (Manual) APTT POC ABG pH ABG pH POC ABG pCO2 26.6 L POC ABG pO2 207 H ABG pO2 ABG HCO3 ABG Base Excess ABG Hemoglobin VBG pH Oxyhemoglobin Sodium Potassium Chloride Carbon Dioxide 17 L BUN 27 H Creatinine Glucose POC Glucose 68 L Lactic Acid Calcium 7.5 L AST ALT Alkaline Phosphatase CK-MB (CK-2) CK-MB (CK-2) Rel Index Total Protein Albumin TSH Urine WBC (Auto) Salicylates 01/10/17 01/10/17 01/10/17 07:47 10:50 13:41 WBC RBC Hgb Hct MCV MCH RDW Plt Count Lymph % (Auto) [place] % (Auto) Eos % (Auto) [place] # Seg Neutrophils % Seg Neuts % (Manual) Lymphocytes % (Manual) Seg Neutrophils # Seg Neutrophils # Man Lymphocytes # (Manual) APTT POC ABG pH ABG pH POC ABG pCO2 POC ABG pO2 ABG pO2 ABG HCO3 ABG Base Excess ABG Hemoglobin VBG pH Oxyhemoglobin Sodium Potassium Chloride Carbon Dioxide BUN Creatinine Glucose POC Glucose 148 H 165 H 114 H Lactic Acid Calcium AST ALT Alkaline Phosphatase CK-MB (CK-2) CK-MB (CK-2) Rel Index Total Protein Albumin TSH Urine WBC (Auto) Salicylates 01/10/17 01/10/17 01/10/17 20:20 21:39 23:24 WBC RBC Hgb Hct MCV MCH RDW Plt Count Lymph % (Auto) [place] % (Auto) Eos % (Auto) [place] # Seg Neutrophils % Seg Neuts % (Manual) Lymphocytes % (Manual) Seg Neutrophils # Seg Neutrophils # Man Lymphocytes # (Manual) APTT POC ABG pH ABG pH POC ABG pCO2 POC ABG pO2 ABG pO2 ABG HCO3 ABG Base Excess ABG Hemoglobin VBG pH Oxyhemoglobin Sodium Potassium Chloride Carbon Dioxide BUN Creatinine Glucose POC Glucose 150 H 175 H 155 H Lactic Acid Calcium AST ALT Alkaline Phosphatase CK-MB (CK-2) CK-MB (CK-2) Rel Index Total Protein Albumin TSH Urine WBC (Auto) Salicylates 01/11/17 01/11/17 01/11/17 00:19 04:06 05:20 WBC 15.2 H RBC 3.40 L Hgb 8.9 L Hct 26.3 L MCV 78 L MCH 26 L RDW 18.6 H Plt Count 462 H Lymph % (Auto) 13.2 L [place] % (Auto) Eos % (Auto) [place] # Seg Neutrophils % 80.8 H Seg Neuts % (Manual) Lymphocytes % (Manual) Seg Neutrophils # 12.3 H Seg Neutrophils # Man Lymphocytes # (Manual) APTT POC ABG pH 7.463 H ABG pH POC ABG pCO2 26.2 L POC ABG pO2 185 H ABG pO2 ABG HCO3 ABG Base Excess ABG Hemoglobin VBG pH Oxyhemoglobin Sodium Potassium Chloride Carbon Dioxide BUN Creatinine Glucose POC Glucose 163 H Lactic Acid Calcium AST ALT Alkaline Phosphatase CK-MB (CK-2) CK-MB (CK-2) Rel Index Total Protein Albumin TSH Urine WBC (Auto) Salicylates 01/11/17 01/11/17 01/11/17 05:20 06:21 07:57 WBC RBC Hgb Hct MCV MCH RDW Plt Count Lymph % (Auto) [place] % (Auto) Eos % (Auto) [place] # Seg Neutrophils % Seg Neuts % (Manual) Lymphocytes % (Manual) Seg Neutrophils # Seg Neutrophils # Man Lymphocytes # (Manual) APTT POC ABG pH ABG pH POC ABG pCO2 POC ABG pO2 ABG pO2 ABG HCO3 ABG Base Excess ABG Hemoglobin VBG pH Oxyhemoglobin Sodium Potassium 3.4 L Chloride 111.5 H Carbon Dioxide 17 L BUN Creatinine Glucose 147 H POC Glucose 139 H 188 H Lactic Acid Calcium 8.0 L AST ALT Alkaline Phosphatase CK-MB (CK-2) CK-MB (CK-2) Rel Index Total Protein Albumin TSH Urine WBC (Auto) Salicylates 01/11/17 01/11/17 01/11/17 11:46 16:50 23:15 WBC RBC Hgb Hct MCV MCH RDW Plt Count Lymph % (Auto) [place] % (Auto) Eos % (Auto) [place] # Seg Neutrophils % Seg Neuts % (Manual) Lymphocytes % (Manual) Seg Neutrophils # Seg Neutrophils # Man Lymphocytes # (Manual) APTT POC ABG pH ABG pH POC ABG pCO2 POC ABG pO2 ABG pO2 ABG HCO3 ABG Base Excess ABG Hemoglobin VBG pH Oxyhemoglobin Sodium Potassium Chloride Carbon Dioxide BUN Creatinine Glucose POC Glucose 199 H 235 H 155 H Lactic Acid Calcium AST ALT Alkaline Phosphatase CK-MB (CK-2) CK-MB (CK-2) Rel Index Total Protein Albumin TSH Urine WBC (Auto) Salicylates 01/12/17 01/12/17 01/12/17 05:02 06:56 14:50 WBC RBC Hgb Hct MCV MCH RDW Plt Count Lymph % (Auto) [place] % (Auto) Eos % (Auto) [place] # Seg Neutrophils % Seg Neuts % (Manual) Lymphocytes % (Manual) Seg Neutrophils # Seg Neutrophils # Man Lymphocytes # (Manual) APTT POC ABG pH ABG pH POC ABG pCO2 28.0 L POC ABG pO2 178 H ABG pO2 ABG HCO3 ABG Base Excess ABG Hemoglobin VBG pH Oxyhemoglobin Sodium Potassium Chloride Carbon Dioxide BUN Creatinine Glucose POC Glucose 119 H 164 H Lactic Acid Calcium AST ALT Alkaline Phosphatase CK-MB (CK-2) CK-MB (CK-2) Rel Index Total Protein Albumin TSH Urine WBC (Auto) Salicylates 01/13/17 01/13/17 01/13/17 03:37 03:37 04:26 WBC RBC 3.61 L Hgb 9.3 L Hct 28.0 L MCV 78 L MCH 26 L RDW 18.2 H Plt Count Lymph % (Auto) [place] % (Auto) Eos % (Auto) [place] # Seg Neutrophils % Seg Neuts % (Manual) Lymphocytes % (Manual) Seg Neutrophils # Seg Neutrophils # Man Lymphocytes # (Manual) APTT POC ABG pH 7.485 H ABG pH POC ABG pCO2 25.4 L POC ABG pO2 73 L ABG pO2 ABG HCO3 ABG Base Excess ABG Hemoglobin VBG pH Oxyhemoglobin Sodium Potassium Chloride 112.4 H Carbon Dioxide 19 L BUN Creatinine Glucose 118 H POC Glucose Lactic Acid Calcium 8.0 L AST ALT Alkaline Phosphatase CK-MB (CK-2) CK-MB (CK-2) Rel Index Total Protein Albumin TSH Urine WBC (Auto) Salicylates 01/13/17 01/13/17 01/13/17 06:15 11:50 17:31 WBC RBC Hgb Hct MCV MCH RDW Plt Count Lymph % (Auto) [place] % (Auto) Eos % (Auto) [place] # Seg Neutrophils % Seg Neuts % (Manual) Lymphocytes % (Manual) Seg Neutrophils # Seg Neutrophils # Man Lymphocytes # (Manual) APTT POC ABG pH ABG pH POC ABG pCO2 POC ABG pO2 ABG pO2 ABG HCO3 ABG Base Excess ABG Hemoglobin VBG pH Oxyhemoglobin Sodium Potassium Chloride Carbon Dioxide BUN Creatinine Glucose POC Glucose 116 H 171 H 203 H Lactic Acid Calcium AST ALT Alkaline Phosphatase CK-MB (CK-2) CK-MB (CK-2) Rel Index Total Protein Albumin TSH Urine WBC (Auto) Salicylates 01/14/17 01/14/17 01/14/17 00:02 04:50 04:50 WBC RBC 3.32 L Hgb 8.5 L Hct 26.1 L MCV 79 L MCH 26 L RDW 18.2 H Plt Count Lymph % (Auto) [place] % (Auto) 9.0 H Eos % (Auto) [place] # Seg Neutrophils % Seg Neuts % (Manual) Lymphocytes % (Manual) Seg Neutrophils # Seg Neutrophils # Man Lymphocytes # (Manual) APTT POC ABG pH ABG pH POC ABG pCO2 POC ABG pO2 ABG pO2 ABG HCO3 ABG Base Excess ABG Hemoglobin VBG pH Oxyhemoglobin Sodium Potassium Chloride 112.5 H Carbon Dioxide BUN Creatinine Glucose 149 H POC Glucose 157 H Lactic Acid Calcium 8.1 L AST ALT Alkaline Phosphatase CK-MB (CK-2) CK-MB (CK-2) Rel Index Total Protein Albumin TSH Urine WBC (Auto) Salicylates 01/14/17 01/14/17 01/14/17 05:10 11:27 14:07 WBC RBC Hgb Hct MCV MCH RDW Plt Count Lymph % (Auto) [place] % (Auto) Eos % (Auto) [place] # Seg Neutrophils % Seg Neuts % (Manual) Lymphocytes % (Manual) Seg Neutrophils # Seg Neutrophils # Man Lymphocytes # (Manual) APTT POC ABG pH ABG pH POC ABG pCO2 POC ABG pO2 ABG pO2 ABG HCO3 ABG Base Excess ABG Hemoglobin VBG pH Oxyhemoglobin Sodium Potassium Chloride Carbon Dioxide BUN Creatinine Glucose POC Glucose 176 H 147 H Lactic Acid Calcium AST ALT Alkaline Phosphatase CK-MB (CK-2) CK-MB (CK-2) Rel Index Total Protein Albumin TSH Urine WBC (Auto) 53.0 H Salicylates 01/14/17 01/15/17 01/15/17 16:52 00:04 05:26 WBC RBC Hgb Hct MCV MCH RDW Plt Count Lymph % (Auto) [place] % (Auto) Eos % (Auto) [place] # Seg Neutrophils % Seg Neuts % (Manual) Lymphocytes % (Manual) Seg Neutrophils # Seg Neutrophils # Man Lymphocytes # (Manual) APTT POC ABG pH ABG pH POC ABG pCO2 POC ABG pO2 ABG pO2 ABG HCO3 ABG Base Excess ABG Hemoglobin VBG pH Oxyhemoglobin Sodium Potassium Chloride Carbon Dioxide BUN Creatinine Glucose POC Glucose 131 H 193 H 215 H Lactic Acid Calcium AST ALT Alkaline Phosphatase CK-MB (CK-2) CK-MB (CK-2) Rel Index Total Protein Albumin TSH Urine WBC (Auto) Salicylates 01/15/17 01/15/17 01/15/17 11:49 17:47 21:33 WBC RBC Hgb Hct MCV MCH RDW Plt Count Lymph % (Auto) [place] % (Auto) Eos % (Auto) [place] # Seg Neutrophils % Seg Neuts % (Manual) Lymphocytes % (Manual) Seg Neutrophils # Seg Neutrophils # Man Lymphocytes # (Manual) APTT POC ABG pH ABG pH POC ABG pCO2 POC ABG pO2 ABG pO2 ABG HCO3 ABG Base Excess ABG Hemoglobin VBG pH Oxyhemoglobin Sodium Potassium Chloride Carbon Dioxide BUN Creatinine Glucose POC Glucose 121 H 211 H 275 H Lactic Acid Calcium AST ALT Alkaline Phosphatase CK-MB (CK-2) CK-MB (CK-2) Rel Index Total Protein Albumin TSH Urine WBC (Auto) Salicylates 01/16/17 01/16/17 01/16/17 04:30 05:28 13:45 WBC RBC Hgb Hct MCV MCH RDW Plt Count Lymph % (Auto) [place] % (Auto) Eos % (Auto) [place] # Seg Neutrophils % Seg Neuts % (Manual) Lymphocytes % (Manual) Seg Neutrophils # Seg Neutrophils # Man Lymphocytes # (Manual) APTT POC ABG pH ABG pH 7.457 H POC ABG pCO2 POC ABG pO2 ABG pO2 55.1 L ABG HCO3 19.4 L ABG Base Excess -4.0 L ABG Hemoglobin 6.8 L VBG pH Oxyhemoglobin 94.9 L Sodium Potassium Chloride Carbon Dioxide BUN Creatinine Glucose POC Glucose 271 H 236 H Lactic Acid Calcium AST ALT Alkaline Phosphatase CK-MB (CK-2) CK-MB (CK-2) Rel Index Total Protein Albumin TSH Urine WBC (Auto) Salicylates 01/16/17 01/17/17 01/17/17 21:39 04:10 04:10 WBC 4.4 L RBC 2.98 L Hgb 7.7 L Hct 23.3 L MCV 78 L MCH 26 L RDW 18.1 H Plt Count Lymph % (Auto) [place] % (Auto) Eos % (Auto) [place] # Seg Neutrophils % Seg Neuts % (Manual) Lymphocytes % (Manual) Seg Neutrophils # Seg Neutrophils # Man Lymphocytes # (Manual) APTT POC ABG pH ABG pH POC ABG pCO2 POC ABG pO2 ABG pO2 ABG HCO3 ABG Base Excess ABG Hemoglobin VBG pH Oxyhemoglobin Sodium Potassium 3.3 L Chloride 108.7 H Carbon Dioxide 20 L BUN 8 L Creatinine Glucose 202 H POC Glucose 258 H Lactic Acid Calcium 7.6 L AST ALT Alkaline Phosphatase CK-MB (CK-2) CK-MB (CK-2) Rel Index Total Protein Albumin TSH Urine WBC (Auto) Salicylates 01/17/17 01/17/17 01/17/17 04:35 12:23 16:01 WBC RBC Hgb Hct MCV MCH RDW Plt Count Lymph % (Auto) [place] % (Auto) Eos % (Auto) [place] # Seg Neutrophils % Seg Neuts % (Manual) Lymphocytes % (Manual) Seg Neutrophils # Seg Neutrophils # Man Lymphocytes # (Manual) APTT POC ABG pH ABG pH POC ABG pCO2 POC ABG pO2 ABG pO2 160.3 H ABG HCO3 ABG Base Excess -2.3 L ABG Hemoglobin 7.9 L VBG pH Oxyhemoglobin Sodium Potassium Chloride Carbon Dioxide BUN Creatinine Glucose POC Glucose 321 H 239 H Lactic Acid Calcium AST ALT Alkaline Phosphatase CK-MB (CK-2) CK-MB (CK-2) Rel Index Total Protein Albumin TSH Urine WBC (Auto) Salicylates 01/18/17 01/18/17 01/18/17 05:07 12:09 17:54 WBC RBC Hgb Hct MCV MCH RDW Plt Count Lymph % (Auto) [place] % (Auto) Eos % (Auto) [place] # Seg Neutrophils % Seg Neuts % (Manual) Lymphocytes % (Manual) Seg Neutrophils # Seg Neutrophils # Man Lymphocytes # (Manual) APTT POC ABG pH ABG pH POC ABG pCO2 POC ABG pO2 ABG pO2 ABG HCO3 ABG Base Excess ABG Hemoglobin VBG pH Oxyhemoglobin Sodium Potassium Chloride Carbon Dioxide BUN Creatinine Glucose POC Glucose 155 H 203 H 132 H Lactic Acid Calcium AST ALT Alkaline Phosphatase CK-MB (CK-2) CK-MB (CK-2) Rel Index Total Protein Albumin TSH Urine WBC (Auto) Salicylates 01/18/17 01/19/17 01/19/17 23:43 04:28 12:11 WBC RBC Hgb Hct MCV MCH RDW Plt Count Lymph % (Auto) [place] % (Auto) Eos % (Auto) [place] # Seg Neutrophils % Seg Neuts % (Manual) Lymphocytes % (Manual) Seg Neutrophils # Seg Neutrophils # Man Lymphocytes # (Manual) APTT POC ABG pH ABG pH POC ABG pCO2 POC ABG pO2 ABG pO2 ABG HCO3 ABG Base Excess ABG Hemoglobin VBG pH Oxyhemoglobin Sodium Potassium Chloride Carbon Dioxide BUN Creatinine Glucose POC Glucose 125 H 182 H 153 H Lactic Acid Calcium AST ALT Alkaline Phosphatase CK-MB (CK-2) CK-MB (CK-2) Rel Index Total Protein Albumin TSH Urine WBC (Auto) Salicylates 01/19/17 01/20/17 01/20/17 17:23 00:12 05:44 WBC RBC Hgb Hct MCV MCH RDW Plt Count Lymph % (Auto) [place] % (Auto) Eos % (Auto) [place] # Seg Neutrophils % Seg Neuts % (Manual) Lymphocytes % (Manual) Seg Neutrophils # Seg Neutrophils # Man Lymphocytes # (Manual) APTT POC ABG pH ABG pH POC ABG pCO2 POC ABG pO2 ABG pO2 ABG HCO3 ABG Base Excess ABG Hemoglobin VBG pH Oxyhemoglobin Sodium Potassium Chloride Carbon Dioxide BUN Creatinine Glucose POC Glucose 66 L 139 H 176 H Lactic Acid Calcium AST ALT Alkaline Phosphatase CK-MB (CK-2) CK-MB (CK-2) Rel Index Total Protein Albumin TSH Urine WBC (Auto) Salicylates 01/20/17 01/20/17 01/20/17 11:48 17:42 23:43 WBC RBC Hgb Hct MCV MCH RDW Plt Count Lymph % (Auto) [place] % (Auto) Eos % (Auto) [place] # Seg Neutrophils % Seg Neuts % (Manual) Lymphocytes % (Manual) Seg Neutrophils # Seg Neutrophils # Man Lymphocytes # (Manual) APTT POC ABG pH ABG pH POC ABG pCO2 POC ABG pO2 ABG pO2 ABG HCO3 ABG Base Excess ABG Hemoglobin VBG pH Oxyhemoglobin Sodium Potassium Chloride Carbon Dioxide BUN Creatinine Glucose POC Glucose 218 H 132 H 178 H Lactic Acid Calcium AST ALT Alkaline Phosphatase CK-MB (CK-2) CK-MB (CK-2) Rel Index Total Protein Albumin TSH Urine WBC (Auto) Salicylates 01/21/17 01/21/17 01/21/17 05:34 11:17 23:37 WBC RBC Hgb Hct MCV MCH RDW Plt Count Lymph % (Auto) [place] % (Auto) Eos % (Auto) [place] # Seg Neutrophils % Seg Neuts % (Manual) Lymphocytes % (Manual) Seg Neutrophils # Seg Neutrophils # Man Lymphocytes # (Manual) APTT POC ABG pH ABG pH POC ABG pCO2 POC ABG pO2 ABG pO2 ABG HCO3 ABG Base Excess ABG Hemoglobin VBG pH Oxyhemoglobin Sodium Potassium Chloride Carbon Dioxide BUN Creatinine Glucose POC Glucose 106 H 213 H 140 H Lactic Acid Calcium AST ALT Alkaline Phosphatase CK-MB (CK-2) CK-MB (CK-2) Rel Index Total Protein Albumin TSH Urine WBC (Auto) Salicylates 01/22/17 01/22/17 01/22/17 04:00 04:00 04:58 WBC RBC 3.26 L Hgb 8.3 L Hct 25.5 L MCV 78 L MCH 25 L RDW 17.9 H Plt Count Lymph % (Auto) [place] % (Auto) 7.9 H Eos % (Auto) 6.2 H [place] # Seg Neutrophils % Seg Neuts % (Manual) Lymphocytes % (Manual) Seg Neutrophils # Seg Neutrophils # Man Lymphocytes # (Manual) APTT POC ABG pH ABG pH POC ABG pCO2 POC ABG pO2 ABG pO2 ABG HCO3 ABG Base Excess ABG Hemoglobin VBG pH Oxyhemoglobin Sodium Potassium Chloride 95.5 L Carbon Dioxide 31 H D BUN Creatinine Glucose 134 H POC Glucose 146 H Lactic Acid Calcium AST 44 H ALT Alkaline Phosphatase 379 H CK-MB (CK-2) CK-MB (CK-2) Rel Index Total Protein Albumin 2.7 L TSH Urine WBC (Auto) Salicylates 01/22/17 01/22/17 01/22/17 12:12 18:12 23:39 WBC RBC Hgb Hct MCV MCH RDW Plt Count Lymph % (Auto) [place] % (Auto) Eos % (Auto) [place] # Seg Neutrophils % Seg Neuts % (Manual) Lymphocytes % (Manual) Seg Neutrophils # Seg Neutrophils # Man Lymphocytes # (Manual) APTT POC ABG pH ABG pH POC ABG pCO2 POC ABG pO2 ABG pO2 ABG HCO3 ABG Base Excess ABG Hemoglobin VBG pH Oxyhemoglobin Sodium Potassium Chloride Carbon Dioxide BUN Creatinine Glucose POC Glucose 255 H 182 H 134 H Lactic Acid Calcium AST ALT Alkaline Phosphatase CK-MB (CK-2) CK-MB (CK-2) Rel Index Total Protein Albumin TSH Urine WBC (Auto) Salicylates 01/23/17 01/23/17 01/23/17 04:43 12:12 17:36 WBC RBC Hgb Hct MCV MCH RDW Plt Count Lymph % (Auto) [place] % (Auto) Eos % (Auto) [place] # Seg Neutrophils % Seg Neuts % (Manual) Lymphocytes % (Manual) Seg Neutrophils # Seg Neutrophils # Man Lymphocytes # (Manual) APTT POC ABG pH ABG pH POC ABG pCO2 POC ABG pO2 ABG pO2 ABG HCO3 ABG Base Excess ABG Hemoglobin VBG pH Oxyhemoglobin Sodium Potassium Chloride Carbon Dioxide BUN Creatinine Glucose POC Glucose 218 H 128 H 156 H Lactic Acid Calcium AST ALT Alkaline Phosphatase CK-MB (CK-2) CK-MB (CK-2) Rel Index Total Protein Albumin TSH Urine WBC (Auto) Salicylates 01/24/17 01/24/17 01/24/17 00:08 05:16 11:40 WBC RBC Hgb Hct MCV MCH RDW Plt Count Lymph % (Auto) [place] % (Auto) Eos % (Auto) [place] # Seg Neutrophils % Seg Neuts % (Manual) Lymphocytes % (Manual) Seg Neutrophils # Seg Neutrophils # Man Lymphocytes # (Manual) APTT POC ABG pH ABG pH POC ABG pCO2 POC ABG pO2 ABG pO2 ABG HCO3 ABG Base Excess ABG Hemoglobin VBG pH Oxyhemoglobin Sodium Potassium Chloride Carbon Dioxide BUN Creatinine Glucose POC Glucose 129 H 169 H 187 H Lactic Acid Calcium AST ALT Alkaline Phosphatase CK-MB (CK-2) CK-MB (CK-2) Rel Index Total Protein Albumin TSH Urine WBC (Auto) Salicylates 01/24/17 01/24/17 01/25/17 17:43 23:23 04:56 WBC RBC Hgb Hct MCV MCH RDW Plt Count Lymph % (Auto) [place] % (Auto) Eos % (Auto) [place] # Seg Neutrophils % Seg Neuts % (Manual) Lymphocytes % (Manual) Seg Neutrophils # Seg Neutrophils # Man Lymphocytes # (Manual) APTT POC ABG pH ABG pH POC ABG pCO2 POC ABG pO2 ABG pO2 ABG HCO3 ABG Base Excess ABG Hemoglobin VBG pH Oxyhemoglobin Sodium Potassium Chloride Carbon Dioxide BUN Creatinine Glucose POC Glucose 215 H 222 H 210 H Lactic Acid Calcium AST ALT Alkaline Phosphatase CK-MB (CK-2) CK-MB (CK-2) Rel Index Total Protein Albumin TSH Urine WBC (Auto) Salicylates 01/25/17 01/25/17 01/26/17 11:52 17:37 00:02 WBC RBC Hgb Hct MCV MCH RDW Plt Count Lymph % (Auto) [place] % (Auto) Eos % (Auto) [place] # Seg Neutrophils % Seg Neuts % (Manual) Lymphocytes % (Manual) Seg Neutrophils # Seg Neutrophils # Man Lymphocytes # (Manual) APTT POC ABG pH ABG pH POC ABG pCO2 POC ABG pO2 ABG pO2 ABG HCO3 ABG Base Excess ABG Hemoglobin VBG pH Oxyhemoglobin Sodium Potassium Chloride Carbon Dioxide BUN Creatinine Glucose POC Glucose 284 H 218 H 192 H Lactic Acid Calcium AST ALT Alkaline Phosphatase CK-MB (CK-2) CK-MB (CK-2) Rel Index Total Protein Albumin TSH Urine WBC (Auto) Salicylates 01/26/17 01/26/17 01/26/17 05:33 12:17 17:50 WBC RBC Hgb Hct MCV MCH RDW Plt Count Lymph % (Auto) [place] % (Auto) Eos % (Auto) [place] # Seg Neutrophils % Seg Neuts % (Manual) Lymphocytes % (Manual) Seg Neutrophils # Seg Neutrophils # Man Lymphocytes # (Manual) APTT POC ABG pH ABG pH POC ABG pCO2 POC ABG pO2 ABG pO2 ABG HCO3 ABG Base Excess ABG Hemoglobin VBG pH Oxyhemoglobin Sodium Potassium Chloride Carbon Dioxide BUN Creatinine Glucose POC Glucose 199 H 227 H 229 H Lactic Acid Calcium AST ALT Alkaline Phosphatase CK-MB (CK-2) CK-MB (CK-2) Rel Index Total Protein Albumin TSH Urine WBC (Auto) Salicylates 01/26/17 01/27/17 01/27/17 23:57 05:31 11:42 WBC RBC Hgb Hct MCV MCH RDW Plt Count Lymph % (Auto) [place] % (Auto) Eos % (Auto) [place] # Seg Neutrophils % Seg Neuts % (Manual) Lymphocytes % (Manual) Seg Neutrophils # Seg Neutrophils # Man Lymphocytes # (Manual) APTT POC ABG pH ABG pH POC ABG pCO2 POC ABG pO2 ABG pO2 ABG HCO3 ABG Base Excess ABG Hemoglobin VBG pH Oxyhemoglobin Sodium Potassium Chloride Carbon Dioxide BUN Creatinine Glucose POC Glucose 186 H 285 H 260 H Lactic Acid Calcium AST ALT Alkaline Phosphatase CK-MB (CK-2) CK-MB (CK-2) Rel Index Total Protein Albumin TSH Urine WBC (Auto) Salicylates 01/27/17 01/27/17 01/27/17 17:47 23:58 Unknown WBC 12.1 H RBC 3.28 L Hgb 8.5 L Hct 25.5 L MCV 78 L MCH 26 L RDW 16.8 H Plt Count 601 H Lymph % (Auto) [place] % (Auto) Eos % (Auto) [place] # Seg Neutrophils % Seg Neuts % (Manual) Lymphocytes % (Manual) Seg Neutrophils # Seg Neutrophils # Man Lymphocytes # (Manual) APTT POC ABG pH ABG pH POC ABG pCO2 POC ABG pO2 ABG pO2 ABG HCO3 ABG Base Excess ABG Hemoglobin VBG pH Oxyhemoglobin Sodium Potassium Chloride Carbon Dioxide BUN Creatinine Glucose POC Glucose 329 H 225 H Lactic Acid Calcium AST ALT Alkaline Phosphatase CK-MB (CK-2) CK-MB (CK-2) Rel Index Total Protein Albumin TSH Urine WBC (Auto) Salicylates 01/27/17 01/28/17 01/28/17 Unknown 03:44 03:44 WBC RBC 3.14 L Hgb 8.2 L Hct 24.1 L MCV 77 L MCH 26 L RDW 16.9 H Plt Count 567 H Lymph % (Auto) [place] % (Auto) Eos % (Auto) [place] # Seg Neutrophils % Seg Neuts % (Manual) Lymphocytes % (Manual) Seg Neutrophils # Seg Neutrophils # Man Lymphocytes # (Manual) APTT POC ABG pH ABG pH POC ABG pCO2 POC ABG pO2 ABG pO2 ABG HCO3 ABG Base Excess ABG Hemoglobin VBG pH Oxyhemoglobin Sodium 128 L Potassium 5.4 H Chloride 87.5 L Carbon Dioxide BUN 44 H 42 H Creatinine Glucose 250 H 128 H POC Glucose Lactic Acid Calcium AST ALT Alkaline Phosphatase CK-MB (CK-2) CK-MB (CK-2) Rel Index Total Protein Albumin TSH Urine WBC (Auto) Salicylates 01/28/17 01/28/17 01/28/17 11:43 16:47 17:52 WBC RBC Hgb Hct MCV MCH RDW Plt Count Lymph % (Auto) [place] % (Auto) Eos % (Auto) [place] # Seg Neutrophils % Seg Neuts % (Manual) Lymphocytes % (Manual) Seg Neutrophils # Seg Neutrophils # Man Lymphocytes # (Manual) APTT POC ABG pH ABG pH POC ABG pCO2 POC ABG pO2 ABG pO2 ABG HCO3 ABG Base Excess ABG Hemoglobin VBG pH Oxyhemoglobin Sodium Potassium Chloride Carbon Dioxide BUN Creatinine Glucose POC Glucose 351 H 249 H Lactic Acid Calcium AST ALT Alkaline Phosphatase CK-MB (CK-2) CK-MB (CK-2) Rel Index Total Protein Albumin TSH Urine WBC (Auto) > 182.0 H Salicylates 01/29/17 01/29/17 01/29/17 05:25 05:25 09:32 WBC 13.6 H RBC 3.25 L Hgb 8.3 L Hct 25.1 L MCV 77 L MCH 26 L RDW 16.8 H Plt Count 514 H Lymph % (Auto) [place] % (Auto) Eos % (Auto) [place] # Seg Neutrophils % Seg Neuts % (Manual) Lymphocytes % (Manual) Seg Neutrophils # Seg Neutrophils # Man Lymphocytes # (Manual) APTT POC ABG pH ABG pH POC ABG pCO2 POC ABG pO2 ABG pO2 ABG HCO3 ABG Base Excess ABG Hemoglobin VBG pH Oxyhemoglobin Sodium Potassium Chloride 97.8 L Carbon Dioxide BUN 34 H Creatinine Glucose 222 H POC Glucose Lactic Acid 2.50 H* Calcium AST ALT Alkaline Phosphatase CK-MB (CK-2) CK-MB (CK-2) Rel Index Total Protein Albumin TSH Urine WBC (Auto) Salicylates 01/29/17 01/29/17 01/29/17 11:56 18:11 23:55 WBC RBC Hgb Hct MCV MCH RDW Plt Count Lymph % (Auto) [place] % (Auto) Eos % (Auto) [place] # Seg Neutrophils % Seg Neuts % (Manual) Lymphocytes % (Manual) Seg Neutrophils # Seg Neutrophils # Man Lymphocytes # (Manual) APTT POC ABG pH ABG pH POC ABG pCO2 POC ABG pO2 ABG pO2 ABG HCO3 ABG Base Excess ABG Hemoglobin VBG pH Oxyhemoglobin Sodium Potassium Chloride Carbon Dioxide BUN Creatinine Glucose POC Glucose 261 H 215 H 176 H Lactic Acid Calcium AST ALT Alkaline Phosphatase CK-MB (CK-2) CK-MB (CK-2) Rel Index Total Protein Albumin TSH Urine WBC (Auto) Salicylates 01/30/17 01/30/17 01/30/17 05:31 05:31 05:34 WBC 15.2 H RBC 3.09 L Hgb 7.9 L Hct 23.9 L MCV 77 L MCH 26 L RDW 16.9 H Plt Count 569 H Lymph % (Auto) [place] % (Auto) Eos % (Auto) [place] # Seg Neutrophils % Seg Neuts % (Manual) Lymphocytes % (Manual) Seg Neutrophils # Seg Neutrophils # Man Lymphocytes # (Manual) APTT POC ABG pH ABG pH POC ABG pCO2 POC ABG pO2 ABG pO2 ABG HCO3 ABG Base Excess ABG Hemoglobin VBG pH Oxyhemoglobin Sodium Potassium Chloride Carbon Dioxide BUN 24 H Creatinine Glucose 235 H POC Glucose 243 H Lactic Acid Calcium AST ALT Alkaline Phosphatase CK-MB (CK-2) CK-MB (CK-2) Rel Index Total Protein Albumin TSH Urine WBC (Auto) Salicylates 01/30/17 01/30/17 01/30/17 11:38 17:58 23:29 WBC RBC Hgb Hct MCV MCH RDW Plt Count Lymph % (Auto) [place] % (Auto) Eos % (Auto) [place] # Seg Neutrophils % Seg Neuts % (Manual) Lymphocytes % (Manual) Seg Neutrophils # Seg Neutrophils # Man Lymphocytes # (Manual) APTT POC ABG pH ABG pH POC ABG pCO2 POC ABG pO2 ABG pO2 ABG HCO3 ABG Base Excess ABG Hemoglobin VBG pH Oxyhemoglobin Sodium Potassium Chloride Carbon Dioxide BUN Creatinine Glucose POC Glucose 298 H 208 H 245 H Lactic Acid Calcium AST ALT Alkaline Phosphatase CK-MB (CK-2) CK-MB (CK-2) Rel Index Total Protein Albumin TSH Urine WBC (Auto) Salicylates 01/31/17 01/31/17 01/31/17 04:39 04:39 05:57 WBC 11.4 H RBC 3.22 L Hgb 8.2 L Hct 24.9 L MCV 78 L MCH 25 L RDW 17.2 H Plt Count 576 H Lymph % (Auto) [place] % (Auto) Eos % (Auto) [place] # Seg Neutrophils % Seg Neuts % (Manual) Lymphocytes % (Manual) Seg Neutrophils # Seg Neutrophils # Man Lymphocytes # (Manual) APTT POC ABG pH ABG pH POC ABG pCO2 POC ABG pO2 ABG pO2 ABG HCO3 ABG Base Excess ABG Hemoglobin VBG pH Oxyhemoglobin Sodium Potassium Chloride Carbon Dioxide BUN Creatinine 0.7 L Glucose 223 H POC Glucose 264 H Lactic Acid Calcium AST ALT Alkaline Phosphatase CK-MB (CK-2) CK-MB (CK-2) Rel Index Total Protein Albumin TSH Urine WBC (Auto) Salicylates 01/31/17 01/31/17 01/31/17 12:23 17:41 18:55 WBC RBC Hgb Hct MCV MCH RDW Plt Count Lymph % (Auto) [place] % (Auto) Eos % (Auto) [place] # Seg Neutrophils % Seg Neuts % (Manual) Lymphocytes % (Manual) Seg Neutrophils # Seg Neutrophils # Man Lymphocytes # (Manual) APTT POC ABG pH ABG pH POC ABG pCO2 32.8 L POC ABG pO2 ABG pO2 ABG HCO3 ABG Base Excess ABG Hemoglobin VBG pH Oxyhemoglobin Sodium Potassium Chloride Carbon Dioxide BUN Creatinine Glucose POC Glucose 252 H 208 H Lactic Acid Calcium AST ALT Alkaline Phosphatase CK-MB (CK-2) CK-MB (CK-2) Rel Index Total Protein Albumin TSH Urine WBC (Auto) Salicylates 01/31/17 02/01/17 02/01/17 22:59 03:38 03:38 WBC RBC 2.81 L Hgb 7.4 L Hct 22.1 L MCV 79 L MCH 27 L RDW 17.0 H Plt Count 540 H Lymph % (Auto) [place] % (Auto) Eos % (Auto) [place] # Seg Neutrophils % Seg Neuts % (Manual) Lymphocytes % (Manual) Seg Neutrophils # Seg Neutrophils # Man Lymphocytes # (Manual) APTT POC ABG pH ABG pH POC ABG pCO2 POC ABG pO2 ABG pO2 ABG HCO3 ABG Base Excess ABG Hemoglobin VBG pH Oxyhemoglobin Sodium Potassium Chloride Carbon Dioxide 21 L BUN Creatinine 0.7 L Glucose POC Glucose 40 L Lactic Acid Calcium AST ALT Alkaline Phosphatase CK-MB (CK-2) CK-MB (CK-2) Rel Index Total Protein Albumin TSH Urine WBC (Auto) Salicylates 02/01/17 02/01/17 02/01/17 05:17 12:19 16:44 WBC RBC Hgb Hct MCV MCH RDW Plt Count Lymph % (Auto) [place] % (Auto) Eos % (Auto) [place] # Seg Neutrophils % Seg Neuts % (Manual) Lymphocytes % (Manual) Seg Neutrophils # Seg Neutrophils # Man Lymphocytes # (Manual) APTT POC ABG pH ABG pH POC ABG pCO2 POC ABG pO2 ABG pO2 ABG HCO3 ABG Base Excess ABG Hemoglobin VBG pH Oxyhemoglobin Sodium Potassium Chloride Carbon Dioxide BUN Creatinine Glucose POC Glucose 140 H 213 H 172 H Lactic Acid Calcium AST ALT Alkaline Phosphatase CK-MB (CK-2) CK-MB (CK-2) Rel Index Total Protein Albumin TSH Urine WBC (Auto) Salicylates 02/01/17 02/02/17 02/02/17 23:59 05:14 11:24 WBC RBC Hgb Hct MCV MCH RDW Plt Count Lymph % (Auto) [place] % (Auto) Eos % (Auto) [place] # Seg Neutrophils % Seg Neuts % (Manual) Lymphocytes % (Manual) Seg Neutrophils # Seg Neutrophils # Man Lymphocytes # (Manual) APTT POC ABG pH ABG pH POC ABG pCO2 POC ABG pO2 ABG pO2 ABG HCO3 ABG Base Excess ABG Hemoglobin VBG pH Oxyhemoglobin Sodium Potassium Chloride Carbon Dioxide BUN Creatinine Glucose POC Glucose 181 H 194 H 209 H Lactic Acid Calcium AST ALT Alkaline Phosphatase CK-MB (CK-2) CK-MB (CK-2) Rel Index Total Protein Albumin TSH Urine WBC (Auto) Salicylates 02/02/17 02/02/17 02/02/17 11:46 11:46 17:47 WBC RBC 2.94 L Hgb 7.5 L Hct 23.0 L MCV 78 L MCH 25 L RDW 16.9 H Plt Count 520 H Lymph % (Auto) [place] % (Auto) Eos % (Auto) [place] # Seg Neutrophils % Seg Neuts % (Manual) Lymphocytes % (Manual) Seg Neutrophils # Seg Neutrophils # Man Lymphocytes # (Manual) APTT POC ABG pH ABG pH POC ABG pCO2 POC ABG pO2 ABG pO2 ABG HCO3 ABG Base Excess ABG Hemoglobin VBG pH Oxyhemoglobin Sodium Potassium Chloride Carbon Dioxide BUN Creatinine 0.6 L Glucose 189 H POC Glucose 147 H Lactic Acid Calcium 8.1 L AST ALT Alkaline Phosphatase CK-MB (CK-2) CK-MB (CK-2) Rel Index Total Protein Albumin TSH Urine WBC (Auto) Salicylates 02/02/17 02/03/17 02/03/17 23:32 05:53 11:19 WBC RBC Hgb Hct MCV MCH RDW Plt Count Lymph % (Auto) [place] % (Auto) Eos % (Auto) [place] # Seg Neutrophils % Seg Neuts % (Manual) Lymphocytes % (Manual) Seg Neutrophils # Seg Neutrophils # Man Lymphocytes # (Manual) APTT POC ABG pH ABG pH POC ABG pCO2 POC ABG pO2 ABG pO2 ABG HCO3 ABG Base Excess ABG Hemoglobin VBG pH Oxyhemoglobin Sodium Potassium Chloride Carbon Dioxide BUN Creatinine Glucose POC Glucose 176 H 224 H 228 H Lactic Acid Calcium AST ALT Alkaline Phosphatase CK-MB (CK-2) CK-MB (CK-2) Rel Index Total Protein Albumin TSH Urine WBC (Auto) Salicylates 02/03/17 02/03/17 02/04/17 16:59 23:38 05:45 WBC RBC Hgb Hct MCV MCH RDW Plt Count Lymph % (Auto) [place] % (Auto) Eos % (Auto) [place] # Seg Neutrophils % Seg Neuts % (Manual) Lymphocytes % (Manual) Seg Neutrophils # Seg Neutrophils # Man Lymphocytes # (Manual) APTT POC ABG pH ABG pH POC ABG pCO2 POC ABG pO2 ABG pO2 ABG HCO3 ABG Base Excess ABG Hemoglobin VBG pH Oxyhemoglobin Sodium Potassium Chloride Carbon Dioxide BUN Creatinine Glucose POC Glucose 189 H 191 H 251 H Lactic Acid Calcium AST ALT Alkaline Phosphatase CK-MB (CK-2) CK-MB (CK-2) Rel Index Total Protein Albumin TSH Urine WBC (Auto) Salicylates 02/04/17 02/04/17 02/05/17 11:20 17:20 00:17 WBC RBC Hgb Hct MCV MCH RDW Plt Count Lymph % (Auto) [place] % (Auto) Eos % (Auto) [place] # Seg Neutrophils % Seg Neuts % (Manual) Lymphocytes % (Manual) Seg Neutrophils # Seg Neutrophils # Man Lymphocytes # (Manual) APTT POC ABG pH ABG pH POC ABG pCO2 POC ABG pO2 ABG pO2 ABG HCO3 ABG Base Excess ABG Hemoglobin VBG pH Oxyhemoglobin Sodium Potassium Chloride Carbon Dioxide BUN Creatinine Glucose POC Glucose 243 H 163 H 200 H Lactic Acid Calcium AST ALT Alkaline Phosphatase CK-MB (CK-2) CK-MB (CK-2) Rel Index Total Protein Albumin TSH Urine WBC (Auto) Salicylates 02/05/17 02/05/17 02/05/17 05:38 12:38 16:29 WBC RBC Hgb Hct MCV MCH RDW Plt Count Lymph % (Auto) [place] % (Auto) Eos % (Auto) [place] # Seg Neutrophils % Seg Neuts % (Manual) Lymphocytes % (Manual) Seg Neutrophils # Seg Neutrophils # Man Lymphocytes # (Manual) APTT POC ABG pH ABG pH POC ABG pCO2 POC ABG pO2 ABG pO2 ABG HCO3 ABG Base Excess ABG Hemoglobin VBG pH Oxyhemoglobin Sodium Potassium Chloride Carbon Dioxide BUN Creatinine Glucose POC Glucose 248 H 241 H 257 H Lactic Acid Calcium AST ALT Alkaline Phosphatase CK-MB (CK-2) CK-MB (CK-2) Rel Index Total Protein Albumin TSH Urine WBC (Auto) Salicylates 02/05/17 02/06/17 02/06/17 23:56 05:30 11:50 WBC RBC Hgb Hct MCV MCH RDW Plt Count Lymph % (Auto) [place] % (Auto) Eos % (Auto) [place] # Seg Neutrophils % Seg Neuts % (Manual) Lymphocytes % (Manual) Seg Neutrophils # Seg Neutrophils # Man Lymphocytes # (Manual) APTT POC ABG pH ABG pH POC ABG pCO2 POC ABG pO2 ABG pO2 ABG HCO3 ABG Base Excess ABG Hemoglobin VBG pH Oxyhemoglobin Sodium Potassium Chloride Carbon Dioxide BUN Creatinine Glucose POC Glucose 258 H 120 H 254 H Lactic Acid Calcium AST ALT Alkaline Phosphatase CK-MB (CK-2) CK-MB (CK-2) Rel Index Total Protein Albumin TSH Urine WBC (Auto) Salicylates 02/06/17 02/06/17 02/07/17 17:11 23:50 05:22 WBC RBC Hgb Hct MCV MCH RDW Plt Count Lymph % (Auto) [place] % (Auto) Eos % (Auto) [place] # Seg Neutrophils % Seg Neuts % (Manual) Lymphocytes % (Manual) Seg Neutrophils # Seg Neutrophils # Man Lymphocytes # (Manual) APTT POC ABG pH ABG pH POC ABG pCO2 POC ABG pO2 ABG pO2 ABG HCO3 ABG Base Excess ABG Hemoglobin VBG pH Oxyhemoglobin Sodium Potassium Chloride Carbon Dioxide BUN Creatinine Glucose POC Glucose 149 H 240 H 258 H Lactic Acid Calcium AST ALT Alkaline Phosphatase CK-MB (CK-2) CK-MB (CK-2) Rel Index Total Protein Albumin TSH Urine WBC (Auto) Salicylates 02/07/17 02/07/17 02/07/17 11:15 18:33 23:59 WBC RBC Hgb Hct MCV MCH RDW Plt Count Lymph % (Auto) [place] % (Auto) Eos % (Auto) [place] # Seg Neutrophils % Seg Neuts % (Manual) Lymphocytes % (Manual) Seg Neutrophils # Seg Neutrophils # Man Lymphocytes # (Manual) APTT POC ABG pH ABG pH POC ABG pCO2 POC ABG pO2 ABG pO2 ABG HCO3 ABG Base Excess ABG Hemoglobin VBG pH Oxyhemoglobin Sodium Potassium Chloride Carbon Dioxide BUN Creatinine Glucose POC Glucose 239 H 176 H 186 H Lactic Acid Calcium AST ALT Alkaline Phosphatase CK-MB (CK-2) CK-MB (CK-2) Rel Index Total Protein Albumin TSH Urine WBC (Auto) Salicylates 02/08/17 02/08/17 02/08/17 06:15 11:55 16:55 WBC RBC Hgb Hct MCV MCH RDW Plt Count Lymph % (Auto) [place] % (Auto) Eos % (Auto) [place] # Seg Neutrophils % Seg Neuts % (Manual) Lymphocytes % (Manual) Seg Neutrophils # Seg Neutrophils # Man Lymphocytes # (Manual) APTT POC ABG pH ABG pH POC ABG pCO2 POC ABG pO2 ABG pO2 ABG HCO3 ABG Base Excess ABG Hemoglobin VBG pH Oxyhemoglobin Sodium Potassium Chloride Carbon Dioxide BUN Creatinine Glucose POC Glucose 195 H 129 H 246 H Lactic Acid Calcium AST ALT Alkaline Phosphatase CK-MB (CK-2) CK-MB (CK-2) Rel Index Total Protein Albumin TSH Urine WBC (Auto) Salicylates 02/08/17 02/09/17 02/09/17 23:51 05:51 07:24 WBC 14.7 H RBC 3.39 L Hgb 8.9 L Hct 26.4 L MCV 78 L MCH 26 L RDW 18.4 H Plt Count 670 H Lymph % (Auto) 11.8 L [place] % (Auto) Eos % (Auto) [place] # Seg Neutrophils % 81.2 H Seg Neuts % (Manual) Lymphocytes % (Manual) Seg Neutrophils # 11.9 H Seg Neutrophils # Man Lymphocytes # (Manual) APTT POC ABG pH ABG pH POC ABG pCO2 POC ABG pO2 ABG pO2 ABG HCO3 ABG Base Excess ABG Hemoglobin VBG pH Oxyhemoglobin Sodium Potassium Chloride Carbon Dioxide BUN Creatinine Glucose POC Glucose 262 H 295 H Lactic Acid Calcium AST ALT Alkaline Phosphatase CK-MB (CK-2) CK-MB (CK-2) Rel Index Total Protein Albumin TSH Urine WBC (Auto) Salicylates 02/09/17 02/09/17 02/09/17 07:24 12:08 18:39 WBC RBC Hgb Hct MCV MCH RDW Plt Count Lymph % (Auto) [place] % (Auto) Eos % (Auto) [place] # Seg Neutrophils % Seg Neuts % (Manual) Lymphocytes % (Manual) Seg Neutrophils # Seg Neutrophils # Man Lymphocytes # (Manual) APTT POC ABG pH ABG pH POC ABG pCO2 POC ABG pO2 ABG pO2 ABG HCO3 ABG Base Excess ABG Hemoglobin VBG pH Oxyhemoglobin Sodium Potassium Chloride 95.5 L Carbon Dioxide BUN 52 H Creatinine Glucose 277 H POC Glucose 236 H 151 H Lactic Acid Calcium AST ALT Alkaline Phosphatase CK-MB (CK-2) CK-MB (CK-2) Rel Index Total Protein Albumin TSH Urine WBC (Auto) Salicylates 02/10/17 02/10/17 02/10/17 00:01 05:44 11:21 WBC RBC Hgb Hct MCV MCH RDW Plt Count Lymph % (Auto) [place] % (Auto) Eos % (Auto) [place] # Seg Neutrophils % Seg Neuts % (Manual) Lymphocytes % (Manual) Seg Neutrophils # Seg Neutrophils # Man Lymphocytes # (Manual) APTT POC ABG pH ABG pH POC ABG pCO2 POC ABG pO2 ABG pO2 ABG HCO3 ABG Base Excess ABG Hemoglobin VBG pH Oxyhemoglobin Sodium Potassium Chloride Carbon Dioxide BUN Creatinine Glucose POC Glucose 210 H 201 H 233 H Lactic Acid Calcium AST ALT Alkaline Phosphatase CK-MB (CK-2) CK-MB (CK-2) Rel Index Total Protein Albumin TSH Urine WBC (Auto) Salicylates 02/10/17 02/10/17 02/11/17 17:29 23:56 05:24 WBC RBC Hgb Hct MCV MCH RDW Plt Count Lymph % (Auto) [place] % (Auto) Eos % (Auto) [place] # Seg Neutrophils % Seg Neuts % (Manual) Lymphocytes % (Manual) Seg Neutrophils # Seg Neutrophils # Man Lymphocytes # (Manual) APTT POC ABG pH ABG pH POC ABG pCO2 POC ABG pO2 ABG pO2 ABG HCO3 ABG Base Excess ABG Hemoglobin VBG pH Oxyhemoglobin Sodium Potassium Chloride Carbon Dioxide BUN Creatinine Glucose POC Glucose 167 H 191 H 135 H Lactic Acid Calcium AST ALT Alkaline Phosphatase CK-MB (CK-2) CK-MB (CK-2) Rel Index Total Protein Albumin TSH Urine WBC (Auto) Salicylates 02/11/17 02/11/17 02/11/17 12:25 17:03 23:59 WBC RBC Hgb Hct MCV MCH RDW Plt Count Lymph % (Auto) [place] % (Auto) Eos % (Auto) [place] # Seg Neutrophils % Seg Neuts % (Manual) Lymphocytes % (Manual) Seg Neutrophils # Seg Neutrophils # Man Lymphocytes # (Manual) APTT POC ABG pH ABG pH POC ABG pCO2 POC ABG pO2 ABG pO2 ABG HCO3 ABG Base Excess ABG Hemoglobin VBG pH Oxyhemoglobin Sodium Potassium Chloride Carbon Dioxide BUN Creatinine Glucose POC Glucose 275 H 172 H 215 H Lactic Acid Calcium AST ALT Alkaline Phosphatase CK-MB (CK-2) CK-MB (CK-2) Rel Index Total Protein Albumin TSH Urine WBC (Auto) Salicylates 02/12/17 02/12/17 02/12/17 05:39 11:33 17:55 WBC RBC Hgb Hct MCV MCH RDW Plt Count Lymph % (Auto) [place] % (Auto) Eos % (Auto) [place] # Seg Neutrophils % Seg Neuts % (Manual) Lymphocytes % (Manual) Seg Neutrophils # Seg Neutrophils # Man Lymphocytes # (Manual) APTT POC ABG pH ABG pH POC ABG pCO2 POC ABG pO2 ABG pO2 ABG HCO3 ABG Base Excess ABG Hemoglobin VBG pH Oxyhemoglobin Sodium Potassium Chloride Carbon Dioxide BUN Creatinine Glucose POC Glucose 261 H 217 H 172 H Lactic Acid Calcium AST ALT Alkaline Phosphatase CK-MB (CK-2) CK-MB (CK-2) Rel Index Total Protein Albumin TSH Urine WBC (Auto) Salicylates 02/13/17 02/13/17 02/13/17 00:25 06:46 11:26 WBC RBC Hgb Hct MCV MCH RDW Plt Count Lymph % (Auto) [place] % (Auto) Eos % (Auto) [place] # Seg Neutrophils % Seg Neuts % (Manual) Lymphocytes % (Manual) Seg Neutrophils # Seg Neutrophils # Man Lymphocytes # (Manual) APTT POC ABG pH ABG pH POC ABG pCO2 POC ABG pO2 ABG pO2 ABG HCO3 ABG Base Excess ABG Hemoglobin VBG pH Oxyhemoglobin Sodium Potassium Chloride Carbon Dioxide BUN Creatinine Glucose POC Glucose 207 H 219 H 231 H Lactic Acid Calcium AST ALT Alkaline Phosphatase CK-MB (CK-2) CK-MB (CK-2) Rel Index Total Protein Albumin TSH Urine WBC (Auto) Salicylates 02/13/17 02/13/17 02/14/17 17:12 23:44 05:44 WBC RBC Hgb Hct MCV MCH RDW Plt Count Lymph % (Auto) [place] % (Auto) Eos % (Auto) [place] # Seg Neutrophils % Seg Neuts % (Manual) Lymphocytes % (Manual) Seg Neutrophils # Seg Neutrophils # Man Lymphocytes # (Manual) APTT POC ABG pH ABG pH POC ABG pCO2 POC ABG pO2 ABG pO2 ABG HCO3 ABG Base Excess ABG Hemoglobin VBG pH Oxyhemoglobin Sodium Potassium Chloride Carbon Dioxide BUN Creatinine Glucose POC Glucose 190 H 256 H 184 H Lactic Acid Calcium AST ALT Alkaline Phosphatase CK-MB (CK-2) CK-MB (CK-2) Rel Index Total Protein Albumin TSH Urine WBC (Auto) Salicylates 02/14/17 02/14/17 02/14/17 12:21 17:57 23:18 WBC RBC Hgb Hct MCV MCH RDW Plt Count Lymph % (Auto) [place] % (Auto) Eos % (Auto) [place] # Seg Neutrophils % Seg Neuts % (Manual) Lymphocytes % (Manual) Seg Neutrophils # Seg Neutrophils # Man Lymphocytes # (Manual) APTT POC ABG pH ABG pH POC ABG pCO2 POC ABG pO2 ABG pO2 ABG HCO3 ABG Base Excess ABG Hemoglobin VBG pH Oxyhemoglobin Sodium Potassium Chloride Carbon Dioxide BUN Creatinine Glucose POC Glucose 233 H 155 H 165 H Lactic Acid Calcium AST ALT Alkaline Phosphatase CK-MB (CK-2) CK-MB (CK-2) Rel Index Total Protein Albumin TSH Urine WBC (Auto) Salicylates 02/15/17 02/15/17 02/15/17 05:33 11:45 17:20 WBC RBC Hgb Hct MCV MCH RDW Plt Count Lymph % (Auto) [place] % (Auto) Eos % (Auto) [place] # Seg Neutrophils % Seg Neuts % (Manual) Lymphocytes % (Manual) Seg Neutrophils # Seg Neutrophils # Man Lymphocytes # (Manual) APTT POC ABG pH ABG pH POC ABG pCO2 POC ABG pO2 ABG pO2 ABG HCO3 ABG Base Excess ABG Hemoglobin VBG pH Oxyhemoglobin Sodium Potassium Chloride Carbon Dioxide BUN Creatinine Glucose POC Glucose 239 H 130 H 189 H Lactic Acid Calcium AST ALT Alkaline Phosphatase CK-MB (CK-2) CK-MB (CK-2) Rel Index Total Protein Albumin TSH Urine WBC (Auto) Salicylates 02/16/17 02/16/17 02/16/17 00:14 05:09 12:31 WBC RBC Hgb Hct MCV MCH RDW Plt Count Lymph % (Auto) [place] % (Auto) Eos % (Auto) [place] # Seg Neutrophils % Seg Neuts % (Manual) Lymphocytes % (Manual) Seg Neutrophils # Seg Neutrophils # Man Lymphocytes # (Manual) APTT POC ABG pH ABG pH POC ABG pCO2 POC ABG pO2 ABG pO2 ABG HCO3 ABG Base Excess ABG Hemoglobin VBG pH Oxyhemoglobin Sodium Potassium Chloride Carbon Dioxide BUN Creatinine Glucose POC Glucose 197 H 226 H 178 H Lactic Acid Calcium AST ALT Alkaline Phosphatase CK-MB (CK-2) CK-MB (CK-2) Rel Index Total Protein Albumin TSH Urine WBC (Auto) Salicylates 02/16/17 02/16/17 02/17/17 16:35 23:49 05:37 WBC RBC Hgb Hct MCV MCH RDW Plt Count Lymph % (Auto) [place] % (Auto) Eos % (Auto) [place] # Seg Neutrophils % Seg Neuts % (Manual) Lymphocytes % (Manual) Seg Neutrophils # Seg Neutrophils # Man Lymphocytes # (Manual) APTT POC ABG pH ABG pH POC ABG pCO2 POC ABG pO2 ABG pO2 ABG HCO3 ABG Base Excess ABG Hemoglobin VBG pH Oxyhemoglobin Sodium Potassium Chloride Carbon Dioxide BUN Creatinine Glucose POC Glucose 174 H 62 L 153 H Lactic Acid Calcium AST ALT Alkaline Phosphatase CK-MB (CK-2) CK-MB (CK-2) Rel Index Total Protein Albumin TSH Urine WBC (Auto) Salicylates 02/17/17 02/17/17 02/17/17 11:39 17:02 22:24 WBC RBC Hgb Hct MCV MCH RDW Plt Count Lymph % (Auto) [place] % (Auto) Eos % (Auto) [place] # Seg Neutrophils % Seg Neuts % (Manual) Lymphocytes % (Manual) Seg Neutrophils # Seg Neutrophils # Man Lymphocytes # (Manual) APTT POC ABG pH ABG pH POC ABG pCO2 POC ABG pO2 ABG pO2 ABG HCO3 ABG Base Excess ABG Hemoglobin VBG pH Oxyhemoglobin Sodium Potassium Chloride Carbon Dioxide BUN Creatinine Glucose POC Glucose 231 H 112 H 116 H Lactic Acid Calcium AST ALT Alkaline Phosphatase CK-MB (CK-2) CK-MB (CK-2) Rel Index Total Protein Albumin TSH Urine WBC (Auto) Salicylates 02/18/17 02/19/17 02/19/17 15:34 05:09 07:57 WBC RBC Hgb Hct MCV MCH RDW Plt Count Lymph % (Auto) [place] % (Auto) Eos % (Auto) [place] # Seg Neutrophils % Seg Neuts % (Manual) Lymphocytes % (Manual) Seg Neutrophils # Seg Neutrophils # Man Lymphocytes # (Manual) APTT POC ABG pH ABG pH POC ABG pCO2 POC ABG pO2 ABG pO2 ABG HCO3 ABG Base Excess ABG Hemoglobin VBG pH Oxyhemoglobin Sodium Potassium Chloride Carbon Dioxide BUN Creatinine Glucose POC Glucose 215 H 218 H 283 H Lactic Acid Calcium AST ALT Alkaline Phosphatase CK-MB (CK-2) CK-MB (CK-2) Rel Index Total Protein Albumin TSH Urine WBC (Auto) Salicylates 02/19/17 02/19/17 02/20/17 14:49 22:10 05:10 WBC RBC Hgb Hct MCV MCH RDW Plt Count Lymph % (Auto) [place] % (Auto) Eos % (Auto) [place] # Seg Neutrophils % Seg Neuts % (Manual) Lymphocytes % (Manual) Seg Neutrophils # Seg Neutrophils # Man Lymphocytes # (Manual) APTT POC ABG pH ABG pH POC ABG pCO2 POC ABG pO2 ABG pO2 ABG HCO3 ABG Base Excess ABG Hemoglobin VBG pH Oxyhemoglobin Sodium Potassium Chloride Carbon Dioxide BUN Creatinine Glucose POC Glucose 290 H 169 H 209 H Lactic Acid Calcium AST ALT Alkaline Phosphatase CK-MB (CK-2) CK-MB (CK-2) Rel Index Total Protein Albumin TSH Urine WBC (Auto) Salicylates 02/20/17 02/20/17 02/21/17 15:05 21:52 02:00 WBC RBC Hgb Hct MCV MCH RDW Plt Count Lymph % (Auto) [place] % (Auto) Eos % (Auto) [place] # Seg Neutrophils % Seg Neuts % (Manual) Lymphocytes % (Manual) Seg Neutrophils # Seg Neutrophils # Man Lymphocytes # (Manual) APTT POC ABG pH ABG pH POC ABG pCO2 POC ABG pO2 ABG pO2 ABG HCO3 ABG Base Excess ABG Hemoglobin VBG pH Oxyhemoglobin Sodium Potassium Chloride Carbon Dioxide BUN Creatinine Glucose POC Glucose 172 H 209 H 216 H Lactic Acid Calcium AST ALT Alkaline Phosphatase CK-MB (CK-2) CK-MB (CK-2) Rel Index Total Protein Albumin TSH Urine WBC (Auto) Salicylates 02/21/17 02/21/17 02/21/17 04:54 14:43 17:47 WBC RBC Hgb Hct MCV MCH RDW Plt Count Lymph % (Auto) [place] % (Auto) Eos % (Auto) [place] # Seg Neutrophils % Seg Neuts % (Manual) Lymphocytes % (Manual) Seg Neutrophils # Seg Neutrophils # Man Lymphocytes # (Manual) APTT POC ABG pH ABG pH POC ABG pCO2 POC ABG pO2 ABG pO2 ABG HCO3 ABG Base Excess ABG Hemoglobin VBG pH Oxyhemoglobin Sodium Potassium Chloride Carbon Dioxide BUN Creatinine Glucose POC Glucose 227 H 290 H 220 H Lactic Acid Calcium AST ALT Alkaline Phosphatase CK-MB (CK-2) CK-MB (CK-2) Rel Index Total Protein Albumin TSH Urine WBC (Auto) Salicylates 02/21/17 02/22/17 02/22/17 22:02 04:52 15:25 WBC RBC Hgb Hct MCV MCH RDW Plt Count Lymph % (Auto) [place] % (Auto) Eos % (Auto) [place] # Seg Neutrophils % Seg Neuts % (Manual) Lymphocytes % (Manual) Seg Neutrophils # Seg Neutrophils # Man Lymphocytes # (Manual) APTT POC ABG pH ABG pH POC ABG pCO2 POC ABG pO2 ABG pO2 ABG HCO3 ABG Base Excess ABG Hemoglobin VBG pH Oxyhemoglobin Sodium Potassium Chloride Carbon Dioxide BUN Creatinine Glucose POC Glucose 246 H 212 H 236 H Lactic Acid Calcium AST ALT Alkaline Phosphatase CK-MB (CK-2) CK-MB (CK-2) Rel Index Total Protein Albumin TSH Urine WBC (Auto) Salicylates 02/22/17 02/23/17 02/23/17 21:33 06:04 10:00 WBC RBC Hgb Hct MCV MCH RDW Plt Count Lymph % (Auto) [place] % (Auto) Eos % (Auto) [place] # Seg Neutrophils % Seg Neuts % (Manual) Lymphocytes % (Manual) Seg Neutrophils # Seg Neutrophils # Man Lymphocytes # (Manual) APTT POC ABG pH ABG pH POC ABG pCO2 POC ABG pO2 ABG pO2 ABG HCO3 ABG Base Excess ABG Hemoglobin VBG pH Oxyhemoglobin Sodium Potassium Chloride Carbon Dioxide BUN Creatinine Glucose POC Glucose 255 H 208 H 174 H Lactic Acid Calcium AST ALT Alkaline Phosphatase CK-MB (CK-2) CK-MB (CK-2) Rel Index Total Protein Albumin TSH Urine WBC (Auto) Salicylates 02/23/17 02/23/17 02/23/17 12:52 17:15 21:51 WBC RBC Hgb Hct MCV MCH RDW Plt Count Lymph % (Auto) [place] % (Auto) Eos % (Auto) [place] # Seg Neutrophils % Seg Neuts % (Manual) Lymphocytes % (Manual) Seg Neutrophils # Seg Neutrophils # Man Lymphocytes # (Manual) APTT POC ABG pH ABG pH POC ABG pCO2 POC ABG pO2 ABG pO2 ABG HCO3 ABG Base Excess ABG Hemoglobin VBG pH Oxyhemoglobin Sodium Potassium Chloride Carbon Dioxide BUN Creatinine Glucose POC Glucose 203 H 269 H 205 H Lactic Acid Calcium AST ALT Alkaline Phosphatase CK-MB (CK-2) CK-MB (CK-2) Rel Index Total Protein Albumin TSH Urine WBC (Auto) Salicylates 02/24/17 02/24/17 02/24/17 10:23 17:45 21:24 WBC RBC Hgb Hct MCV MCH RDW Plt Count Lymph % (Auto) [place] % (Auto) Eos % (Auto) [place] # Seg Neutrophils % Seg Neuts % (Manual) Lymphocytes % (Manual) Seg Neutrophils # Seg Neutrophils # Man Lymphocytes # (Manual) APTT POC ABG pH ABG pH POC ABG pCO2 POC ABG pO2 ABG pO2 ABG HCO3 ABG Base Excess ABG Hemoglobin VBG pH Oxyhemoglobin Sodium Potassium Chloride Carbon Dioxide BUN Creatinine Glucose POC Glucose 280 H 239 H 254 H Lactic Acid Calcium AST ALT Alkaline Phosphatase CK-MB (CK-2) CK-MB (CK-2) Rel Index Total Protein Albumin TSH Urine WBC (Auto) Salicylates 02/25/17 02/25/17 02/25/17 02:12 05:17 14:32 WBC RBC Hgb Hct MCV MCH RDW Plt Count Lymph % (Auto) [place] % (Auto) Eos % (Auto) [place] # Seg Neutrophils % Seg Neuts % (Manual) Lymphocytes % (Manual) Seg Neutrophils # Seg Neutrophils # Man Lymphocytes # (Manual) APTT POC ABG pH ABG pH POC ABG pCO2 POC ABG pO2 ABG pO2 ABG HCO3 ABG Base Excess ABG Hemoglobin VBG pH Oxyhemoglobin Sodium Potassium Chloride Carbon Dioxide BUN Creatinine Glucose POC Glucose 296 H 332 H 353 H Lactic Acid Calcium AST ALT Alkaline Phosphatase CK-MB (CK-2) CK-MB (CK-2) Rel Index Total Protein Albumin TSH Urine WBC (Auto) Salicylates 02/25/17 02/26/17 02/26/17 22:14 00:37 05:52 WBC RBC Hgb Hct MCV MCH RDW Plt Count Lymph % (Auto) [place] % (Auto) Eos % (Auto) [place] # Seg Neutrophils % Seg Neuts % (Manual) Lymphocytes % (Manual) Seg Neutrophils # Seg Neutrophils # Man Lymphocytes # (Manual) APTT POC ABG pH ABG pH POC ABG pCO2 POC ABG pO2 ABG pO2 ABG HCO3 ABG Base Excess ABG Hemoglobin VBG pH Oxyhemoglobin Sodium Potassium Chloride Carbon Dioxide BUN Creatinine Glucose POC Glucose 201 H 233 H 269 H Lactic Acid Calcium AST ALT Alkaline Phosphatase CK-MB (CK-2) CK-MB (CK-2) Rel Index Total Protein Albumin TSH Urine WBC (Auto) Salicylates 02/26/17 02/26/17 02/26/17 11:48 13:49 21:26 WBC RBC Hgb Hct MCV MCH RDW Plt Count Lymph % (Auto) [place] % (Auto) Eos % (Auto) [place] # Seg Neutrophils % Seg Neuts % (Manual) Lymphocytes % (Manual) Seg Neutrophils # Seg Neutrophils # Man Lymphocytes # (Manual) APTT POC ABG pH ABG pH POC ABG pCO2 POC ABG pO2 ABG pO2 ABG HCO3 ABG Base Excess ABG Hemoglobin VBG pH Oxyhemoglobin Sodium Potassium Chloride Carbon Dioxide BUN Creatinine Glucose POC Glucose 333 H 322 H 244 H Lactic Acid Calcium AST ALT Alkaline Phosphatase CK-MB (CK-2) CK-MB (CK-2) Rel Index Total Protein Albumin TSH Urine WBC (Auto) Salicylates 02/27/17 02/27/17 02/27/17 05:27 13:51 21:48 WBC RBC Hgb Hct MCV MCH RDW Plt Count Lymph % (Auto) [place] % (Auto) Eos % (Auto) [place] # Seg Neutrophils % Seg Neuts % (Manual) Lymphocytes % (Manual) Seg Neutrophils # Seg Neutrophils # Man Lymphocytes # (Manual) APTT POC ABG pH ABG pH POC ABG pCO2 POC ABG pO2 ABG pO2 ABG HCO3 ABG Base Excess ABG Hemoglobin VBG pH Oxyhemoglobin Sodium Potassium Chloride Carbon Dioxide BUN Creatinine Glucose POC Glucose 217 H 239 H 254 H Lactic Acid Calcium AST ALT Alkaline Phosphatase CK-MB (CK-2) CK-MB (CK-2) Rel Index Total Protein Albumin TSH Urine WBC (Auto) Salicylates 02/28/17 02/28/17 02/28/17 05:38 11:00 19:44 WBC RBC Hgb Hct MCV MCH RDW Plt Count Lymph % (Auto) [place] % (Auto) Eos % (Auto) [place] # Seg Neutrophils % Seg Neuts % (Manual) Lymphocytes % (Manual) Seg Neutrophils # Seg Neutrophils # Man Lymphocytes # (Manual) APTT POC ABG pH ABG pH POC ABG pCO2 POC ABG pO2 ABG pO2 ABG HCO3 ABG Base Excess ABG Hemoglobin VBG pH Oxyhemoglobin Sodium Potassium Chloride Carbon Dioxide BUN Creatinine Glucose POC Glucose 325 H 203 H 116 H Lactic Acid Calcium AST ALT Alkaline Phosphatase CK-MB (CK-2) CK-MB (CK-2) Rel Index Total Protein Albumin TSH Urine WBC (Auto) Salicylates 03/01/17 03/01/17 03/01/17 00:08 05:31 12:17 WBC RBC Hgb Hct MCV MCH RDW Plt Count Lymph % (Auto) [place] % (Auto) Eos % (Auto) [place] # Seg Neutrophils % Seg Neuts % (Manual) Lymphocytes % (Manual) Seg Neutrophils # Seg Neutrophils # Man Lymphocytes # (Manual) APTT POC ABG pH ABG pH POC ABG pCO2 POC ABG pO2 ABG pO2 ABG HCO3 ABG Base Excess ABG Hemoglobin VBG pH Oxyhemoglobin Sodium Potassium Chloride Carbon Dioxide BUN Creatinine Glucose POC Glucose 202 H 183 H 184 H Lactic Acid Calcium AST ALT Alkaline Phosphatase CK-MB (CK-2) CK-MB (CK-2) Rel Index Total Protein Albumin TSH Urine WBC (Auto) Salicylates 03/02/17 03/02/17 03/02/17 00:12 05:58 18:22 WBC RBC Hgb Hct MCV MCH RDW Plt Count Lymph % (Auto) [place] % (Auto) Eos % (Auto) [place] # Seg Neutrophils % Seg Neuts % (Manual) Lymphocytes % (Manual) Seg Neutrophils # Seg Neutrophils # Man Lymphocytes # (Manual) APTT POC ABG pH ABG pH POC ABG pCO2 POC ABG pO2 ABG pO2 ABG HCO3 ABG Base Excess ABG Hemoglobin VBG pH Oxyhemoglobin Sodium Potassium Chloride Carbon Dioxide BUN Creatinine Glucose POC Glucose 117 H 176 H 156 H Lactic Acid Calcium AST ALT Alkaline Phosphatase CK-MB (CK-2) CK-MB (CK-2) Rel Index Total Protein Albumin TSH Urine WBC (Auto) Salicylates 03/02/17 03/03/17 03/03/17 23:51 05:44 11:32 WBC RBC Hgb Hct MCV MCH RDW Plt Count Lymph % (Auto) [place] % (Auto) Eos % (Auto) [place] # Seg Neutrophils % Seg Neuts % (Manual) Lymphocytes % (Manual) Seg Neutrophils # Seg Neutrophils # Man Lymphocytes # (Manual) APTT POC ABG pH ABG pH POC ABG pCO2 POC ABG pO2 ABG pO2 ABG HCO3 ABG Base Excess ABG Hemoglobin VBG pH Oxyhemoglobin Sodium Potassium Chloride Carbon Dioxide BUN Creatinine Glucose POC Glucose 211 H 117 H 133 H Lactic Acid Calcium AST ALT Alkaline Phosphatase CK-MB (CK-2) CK-MB (CK-2) Rel Index Total Protein Albumin TSH Urine WBC (Auto) Salicylates 03/03/17 03/03/17 03/04/17 17:43 23:17 05:30 WBC RBC Hgb Hct MCV MCH RDW Plt Count Lymph % (Auto) [place] % (Auto) Eos % (Auto) [place] # Seg Neutrophils % Seg Neuts % (Manual) Lymphocytes % (Manual) Seg Neutrophils # Seg Neutrophils # Man Lymphocytes # (Manual) APTT POC ABG pH ABG pH POC ABG pCO2 POC ABG pO2 ABG pO2 ABG HCO3 ABG Base Excess ABG Hemoglobin VBG pH Oxyhemoglobin Sodium Potassium Chloride Carbon Dioxide BUN Creatinine Glucose POC Glucose 206 H 170 H 126 H Lactic Acid Calcium AST ALT Alkaline Phosphatase CK-MB (CK-2) CK-MB (CK-2) Rel Index Total Protein Albumin TSH Urine WBC (Auto) Salicylates 03/04/17 03/04/17 03/05/17 12:17 17:27 05:20 WBC RBC Hgb Hct MCV MCH RDW Plt Count Lymph % (Auto) [place] % (Auto) Eos % (Auto) [place] # Seg Neutrophils % Seg Neuts % (Manual) Lymphocytes % (Manual) Seg Neutrophils # Seg Neutrophils # Man Lymphocytes # (Manual) APTT POC ABG pH ABG pH POC ABG pCO2 POC ABG pO2 ABG pO2 ABG HCO3 ABG Base Excess ABG Hemoglobin VBG pH Oxyhemoglobin Sodium Potassium Chloride Carbon Dioxide BUN Creatinine Glucose POC Glucose 135 H 121 H 185 H Lactic Acid Calcium AST ALT Alkaline Phosphatase CK-MB (CK-2) CK-MB (CK-2) Rel Index Total Protein Albumin TSH Urine WBC (Auto) Salicylates 03/05/17 03/06/17 03/06/17 11:50 11:52 17:34 WBC RBC Hgb Hct MCV MCH RDW Plt Count Lymph % (Auto) [place] % (Auto) Eos % (Auto) [place] # Seg Neutrophils % Seg Neuts % (Manual) Lymphocytes % (Manual) Seg Neutrophils # Seg Neutrophils # Man Lymphocytes # (Manual) APTT POC ABG pH ABG pH POC ABG pCO2 POC ABG pO2 ABG pO2 ABG HCO3 ABG Base Excess ABG Hemoglobin VBG pH Oxyhemoglobin Sodium Potassium Chloride Carbon Dioxide BUN Creatinine Glucose POC Glucose 116 H 133 H 181 H Lactic Acid Calcium AST ALT Alkaline Phosphatase CK-MB (CK-2) CK-MB (CK-2) Rel Index Total Protein Albumin TSH Urine WBC (Auto) Salicylates 03/07/17 03/07/17 03/07/17 05:21 11:36 17:49 WBC RBC Hgb Hct MCV MCH RDW Plt Count Lymph % (Auto) [place] % (Auto) Eos % (Auto) [place] # Seg Neutrophils % Seg Neuts % (Manual) Lymphocytes % (Manual) Seg Neutrophils # Seg Neutrophils # Man Lymphocytes # (Manual) APTT POC ABG pH ABG pH POC ABG pCO2 POC ABG pO2 ABG pO2 ABG HCO3 ABG Base Excess ABG Hemoglobin VBG pH Oxyhemoglobin Sodium Potassium Chloride Carbon Dioxide BUN Creatinine Glucose POC Glucose 159 H 137 H 158 H Lactic Acid Calcium AST ALT Alkaline Phosphatase CK-MB (CK-2) CK-MB (CK-2) Rel Index Total Protein Albumin TSH Urine WBC (Auto) Salicylates 03/08/17 03/08/17 03/08/17 05:51 13:58 23:50 WBC RBC Hgb Hct MCV MCH RDW Plt Count Lymph % (Auto) [place] % (Auto) Eos % (Auto) [place] # Seg Neutrophils % Seg Neuts % (Manual) Lymphocytes % (Manual) Seg Neutrophils # Seg Neutrophils # Man Lymphocytes # (Manual) APTT POC ABG pH ABG pH POC ABG pCO2 POC ABG pO2 ABG pO2 ABG HCO3 ABG Base Excess ABG Hemoglobin VBG pH Oxyhemoglobin Sodium Potassium Chloride Carbon Dioxide BUN Creatinine Glucose POC Glucose 122 H 182 H 114 H Lactic Acid Calcium AST ALT Alkaline Phosphatase CK-MB (CK-2) CK-MB (CK-2) Rel Index Total Protein Albumin TSH Urine WBC (Auto) Salicylates 03/09/17 03/09/17 03/09/17 05:21 05:51 05:51 WBC RBC 3.61 L Hgb 9.5 L Hct 28.3 L MCV 79 L MCH 26 L RDW 17.8 H Plt Count Lymph % (Auto) [place] % (Auto) Eos % (Auto) [place] # Seg Neutrophils % Seg Neuts % (Manual) Lymphocytes % (Manual) Seg Neutrophils # Seg Neutrophils # Man Lymphocytes # (Manual) APTT POC ABG pH ABG pH POC ABG pCO2 POC ABG pO2 ABG pO2 ABG HCO3 ABG Base Excess ABG Hemoglobin VBG pH Oxyhemoglobin Sodium 134 L Potassium Chloride 95.5 L Carbon Dioxide BUN 33 H Creatinine 0.5 L Glucose 143 H POC Glucose 153 H Lactic Acid Calcium AST ALT Alkaline Phosphatase CK-MB (CK-2) CK-MB (CK-2) Rel Index Total Protein Albumin TSH Urine WBC (Auto) Salicylates 03/09/17 03/09/17 03/09/17 12:10 18:13 21:00 WBC RBC Hgb Hct MCV MCH RDW Plt Count Lymph % (Auto) [place] % (Auto) Eos % (Auto) [place] # Seg Neutrophils % Seg Neuts % (Manual) Lymphocytes % (Manual) Seg Neutrophils # Seg Neutrophils # Man Lymphocytes # (Manual) APTT POC ABG pH ABG pH POC ABG pCO2 POC ABG pO2 ABG pO2 ABG HCO3 ABG Base Excess ABG Hemoglobin VBG pH Oxyhemoglobin Sodium Potassium Chloride Carbon Dioxide BUN Creatinine Glucose POC Glucose 203 H 221 H 198 H Lactic Acid Calcium AST ALT Alkaline Phosphatase CK-MB (CK-2) CK-MB (CK-2) Rel Index Total Protein Albumin TSH Urine WBC (Auto) Salicylates 03/09/17 03/10/17 03/10/17 23:58 05:09 05:09 WBC RBC Hgb 10.3 L Hct 30.5 L MCV 78 L MCH 26 L RDW 17.9 H Plt Count Lymph % (Auto) [place] % (Auto) 10.0 H Eos % (Auto) 6.0 H [place] # Seg Neutrophils % Seg Neuts % (Manual) Lymphocytes % (Manual) Seg Neutrophils # Seg Neutrophils # Man Lymphocytes # (Manual) APTT POC ABG pH ABG pH POC ABG pCO2 POC ABG pO2 ABG pO2 ABG HCO3 ABG Base Excess ABG Hemoglobin VBG pH Oxyhemoglobin Sodium 132 L Potassium Chloride 92.2 L Carbon Dioxide BUN 33 H Creatinine 0.5 L Glucose 50 L POC Glucose 167 H Lactic Acid Calcium AST ALT Alkaline Phosphatase CK-MB (CK-2) CK-MB (CK-2) Rel Index Total Protein Albumin TSH Urine WBC (Auto) Salicylates 03/10/17 03/10/17 03/10/17 05:33 05:34 11:48 WBC RBC Hgb Hct MCV MCH RDW Plt Count Lymph % (Auto) [place] % (Auto) Eos % (Auto) [place] # Seg Neutrophils % Seg Neuts % (Manual) Lymphocytes % (Manual) Seg Neutrophils # Seg Neutrophils # Man Lymphocytes # (Manual) APTT POC ABG pH ABG pH POC ABG pCO2 POC ABG pO2 ABG pO2 ABG HCO3 ABG Base Excess ABG Hemoglobin VBG pH Oxyhemoglobin Sodium Potassium Chloride Carbon Dioxide BUN Creatinine Glucose POC Glucose 52 L 53 L 148 H Lactic Acid Calcium AST ALT Alkaline Phosphatase CK-MB (CK-2) CK-MB (CK-2) Rel Index Total Protein Albumin TSH Urine WBC (Auto) Salicylates 03/10/17 03/10/17 03/11/17 17:53 23:47 05:18 WBC RBC Hgb Hct MCV MCH RDW Plt Count Lymph % (Auto) [place] % (Auto) Eos % (Auto) [place] # Seg Neutrophils % Seg Neuts % (Manual) Lymphocytes % (Manual) Seg Neutrophils # Seg Neutrophils # Man Lymphocytes # (Manual) APTT POC ABG pH ABG pH POC ABG pCO2 POC ABG pO2 ABG pO2 ABG HCO3 ABG Base Excess ABG Hemoglobin VBG pH Oxyhemoglobin Sodium Potassium Chloride Carbon Dioxide BUN Creatinine Glucose POC Glucose 189 H 398 H 126 H Lactic Acid Calcium AST ALT Alkaline Phosphatase CK-MB (CK-2) CK-MB (CK-2) Rel Index Total Protein Albumin TSH Urine WBC (Auto) Salicylates 03/11/17 03/11/17 03/11/17 11:53 17:30 23:10 WBC RBC Hgb Hct MCV MCH RDW Plt Count Lymph % (Auto) [place] % (Auto) Eos % (Auto) [place] # Seg Neutrophils % Seg Neuts % (Manual) Lymphocytes % (Manual) Seg Neutrophils # Seg Neutrophils # Man Lymphocytes # (Manual) APTT POC ABG pH ABG pH POC ABG pCO2 POC ABG pO2 ABG pO2 ABG HCO3 ABG Base Excess ABG Hemoglobin VBG pH Oxyhemoglobin Sodium Potassium Chloride Carbon Dioxide BUN Creatinine Glucose POC Glucose 198 H 142 H 244 H Lactic Acid Calcium AST ALT Alkaline Phosphatase CK-MB (CK-2) CK-MB (CK-2) Rel Index Total Protein Albumin TSH Urine WBC (Auto) Salicylates 03/12/17 03/12/17 03/12/17 04:36 11:49 17:23 WBC RBC Hgb Hct MCV MCH RDW Plt Count Lymph % (Auto) [place] % (Auto) Eos % (Auto) [place] # Seg Neutrophils % Seg Neuts % (Manual) Lymphocytes % (Manual) Seg Neutrophils # Seg Neutrophils # Man Lymphocytes # (Manual) APTT POC ABG pH ABG pH POC ABG pCO2 POC ABG pO2 ABG pO2 ABG HCO3 ABG Base Excess ABG Hemoglobin VBG pH Oxyhemoglobin Sodium Potassium Chloride Carbon Dioxide BUN Creatinine Glucose POC Glucose 205 H 197 H 209 H Lactic Acid Calcium AST ALT Alkaline Phosphatase CK-MB (CK-2) CK-MB (CK-2) Rel Index Total Protein Albumin TSH Urine WBC (Auto) Salicylates 03/12/17 03/13/17 03/13/17 23:51 05:32 11:43 WBC RBC Hgb Hct MCV MCH RDW Plt Count Lymph % (Auto) [place] % (Auto) Eos % (Auto) [place] # Seg Neutrophils % Seg Neuts % (Manual) Lymphocytes % (Manual) Seg Neutrophils # Seg Neutrophils # Man Lymphocytes # (Manual) APTT POC ABG pH ABG pH POC ABG pCO2 POC ABG pO2 ABG pO2 ABG HCO3 ABG Base Excess ABG Hemoglobin VBG pH Oxyhemoglobin Sodium Potassium Chloride Carbon Dioxide BUN Creatinine Glucose POC Glucose 210 H 154 H 164 H Lactic Acid Calcium AST ALT Alkaline Phosphatase CK-MB (CK-2) CK-MB (CK-2) Rel Index Total Protein Albumin TSH Urine WBC (Auto) Salicylates 03/13/17 03/13/17 03/14/17 17:11 23:26 05:42 WBC RBC Hgb Hct MCV MCH RDW Plt Count Lymph % (Auto) [place] % (Auto) Eos % (Auto) [place] # Seg Neutrophils % Seg Neuts % (Manual) Lymphocytes % (Manual) Seg Neutrophils # Seg Neutrophils # Man Lymphocytes # (Manual) APTT POC ABG pH ABG pH POC ABG pCO2 POC ABG pO2 ABG pO2 ABG HCO3 ABG Base Excess ABG Hemoglobin VBG pH Oxyhemoglobin Sodium Potassium Chloride Carbon Dioxide BUN Creatinine Glucose POC Glucose 195 H 240 H 230 H Lactic Acid Calcium AST ALT Alkaline Phosphatase CK-MB (CK-2) CK-MB (CK-2) Rel Index Total Protein Albumin TSH Urine WBC (Auto) Salicylates 03/14/17 03/14/17 03/14/17 14:04 17:34 23:42 WBC RBC Hgb Hct MCV MCH RDW Plt Count Lymph % (Auto) [place] % (Auto) Eos % (Auto) [place] # Seg Neutrophils % Seg Neuts % (Manual) Lymphocytes % (Manual) Seg Neutrophils # Seg Neutrophils # Man Lymphocytes # (Manual) APTT POC ABG pH ABG pH POC ABG pCO2 POC ABG pO2 ABG pO2 ABG HCO3 ABG Base Excess ABG Hemoglobin VBG pH Oxyhemoglobin Sodium Potassium Chloride Carbon Dioxide BUN Creatinine Glucose POC Glucose 227 H 186 H 225 H Lactic Acid Calcium AST ALT Alkaline Phosphatase CK-MB (CK-2) CK-MB (CK-2) Rel Index Total Protein Albumin TSH Urine WBC (Auto) Salicylates 03/15/17 03/15/17 03/15/17 05:21 17:13 21:37 WBC RBC Hgb Hct MCV MCH RDW Plt Count Lymph % (Auto) [place] % (Auto) Eos % (Auto) [place] # Seg Neutrophils % Seg Neuts % (Manual) Lymphocytes % (Manual) Seg Neutrophils # Seg Neutrophils # Man Lymphocytes # (Manual) APTT POC ABG pH ABG pH POC ABG pCO2 POC ABG pO2 ABG pO2 ABG HCO3 ABG Base Excess ABG Hemoglobin VBG pH Oxyhemoglobin Sodium Potassium Chloride Carbon Dioxide BUN Creatinine Glucose POC Glucose 244 H 203 H 216 H Lactic Acid Calcium AST ALT Alkaline Phosphatase CK-MB (CK-2) CK-MB (CK-2) Rel Index Total Protein Albumin TSH Urine WBC (Auto) Salicylates 03/16/17 03/16/17 03/16/17 05:52 18:07 21:54 WBC RBC Hgb Hct MCV MCH RDW Plt Count Lymph % (Auto) [place] % (Auto) Eos % (Auto) [place] # Seg Neutrophils % Seg Neuts % (Manual) Lymphocytes % (Manual) Seg Neutrophils # Seg Neutrophils # Man Lymphocytes # (Manual) APTT POC ABG pH ABG pH POC ABG pCO2 POC ABG pO2 ABG pO2 ABG HCO3 ABG Base Excess ABG Hemoglobin VBG pH Oxyhemoglobin Sodium Potassium Chloride Carbon Dioxide BUN Creatinine Glucose POC Glucose 248 H 254 H 244 H Lactic Acid Calcium AST ALT Alkaline Phosphatase CK-MB (CK-2) CK-MB (CK-2) Rel Index Total Protein Albumin TSH Urine WBC (Auto) Salicylates 03/17/17 03/17/17 03/17/17 07:07 07:42 07:43 WBC RBC Hgb 9.7 L Hct 29.1 L MCV 78 L MCH 26 L RDW 17.4 H Plt Count Lymph % (Auto) [place] % (Auto) Eos % (Auto) [place] # Seg Neutrophils % Seg Neuts % (Manual) Lymphocytes % (Manual) Seg Neutrophils # Seg Neutrophils # Man Lymphocytes # (Manual) APTT POC ABG pH ABG pH POC ABG pCO2 POC ABG pO2 ABG pO2 ABG HCO3 ABG Base Excess ABG Hemoglobin VBG pH Oxyhemoglobin Sodium Potassium Chloride 96.6 L Carbon Dioxide BUN 30 H Creatinine 0.5 L Glucose 251 H POC Glucose 222 H Lactic Acid Calcium AST ALT Alkaline Phosphatase CK-MB (CK-2) CK-MB (CK-2) Rel Index Total Protein Albumin TSH Urine WBC (Auto) Salicylates 03/17/17 03/17/17 03/18/17 14:08 21:20 14:24 WBC RBC Hgb Hct MCV MCH RDW Plt Count Lymph % (Auto) [place] % (Auto) Eos % (Auto) [place] # Seg Neutrophils % Seg Neuts % (Manual) Lymphocytes % (Manual) Seg Neutrophils # Seg Neutrophils # Man Lymphocytes # (Manual) APTT POC ABG pH ABG pH POC ABG pCO2 POC ABG pO2 ABG pO2 ABG HCO3 ABG Base Excess ABG Hemoglobin VBG pH Oxyhemoglobin Sodium Potassium Chloride Carbon Dioxide BUN Creatinine Glucose POC Glucose 281 H 239 H 195 H Lactic Acid Calcium AST ALT Alkaline Phosphatase CK-MB (CK-2) CK-MB (CK-2) Rel Index Total Protein Albumin TSH Urine WBC (Auto) Salicylates 03/18/17 03/19/17 03/19/17 21:37 04:57 14:23 WBC RBC Hgb Hct MCV MCH RDW Plt Count Lymph % (Auto) [place] % (Auto) Eos % (Auto) [place] # Seg Neutrophils % Seg Neuts % (Manual) Lymphocytes % (Manual) Seg Neutrophils # Seg Neutrophils # Man Lymphocytes # (Manual) APTT POC ABG pH ABG pH POC ABG pCO2 POC ABG pO2 ABG pO2 ABG HCO3 ABG Base Excess ABG Hemoglobin VBG pH Oxyhemoglobin Sodium Potassium Chloride Carbon Dioxide BUN Creatinine Glucose POC Glucose 227 H 205 H 277 H Lactic Acid Calcium AST ALT Alkaline Phosphatase CK-MB (CK-2) CK-MB (CK-2) Rel Index Total Protein Albumin TSH Urine WBC (Auto) Salicylates 03/19/17 03/19/17 03/20/17 20:31 21:47 04:55 WBC RBC Hgb Hct MCV MCH RDW Plt Count Lymph % (Auto) [place] % (Auto) Eos % (Auto) [place] # Seg Neutrophils % Seg Neuts % (Manual) Lymphocytes % (Manual) Seg Neutrophils # Seg Neutrophils # Man Lymphocytes # (Manual) APTT POC ABG pH ABG pH POC ABG pCO2 POC ABG pO2 ABG pO2 ABG HCO3 ABG Base Excess ABG Hemoglobin VBG pH Oxyhemoglobin Sodium Potassium Chloride Carbon Dioxide BUN Creatinine Glucose POC Glucose 256 H 270 H 202 H Lactic Acid Calcium AST ALT Alkaline Phosphatase CK-MB (CK-2) CK-MB (CK-2) Rel Index Total Protein Albumin TSH Urine WBC (Auto) Salicylates 03/20/17 03/20/17 03/21/17 14:09 21:40 05:09 WBC RBC Hgb Hct MCV MCH RDW Plt Count Lymph % (Auto) [place] % (Auto) Eos % (Auto) [place] # Seg Neutrophils % Seg Neuts % (Manual) Lymphocytes % (Manual) Seg Neutrophils # Seg Neutrophils # Man Lymphocytes # (Manual) APTT POC ABG pH ABG pH POC ABG pCO2 POC ABG pO2 ABG pO2 ABG HCO3 ABG Base Excess ABG Hemoglobin VBG pH Oxyhemoglobin Sodium Potassium Chloride Carbon Dioxide BUN Creatinine Glucose POC Glucose 200 H 214 H 233 H Lactic Acid Calcium AST ALT Alkaline Phosphatase CK-MB (CK-2) CK-MB (CK-2) Rel Index Total Protein Albumin TSH Urine WBC (Auto) Salicylates 03/21/17 03/21/17 03/22/17 14:06 21:26 05:43 WBC RBC Hgb Hct MCV MCH RDW Plt Count Lymph % (Auto) [place] % (Auto) Eos % (Auto) [place] # Seg Neutrophils % Seg Neuts % (Manual) Lymphocytes % (Manual) Seg Neutrophils # Seg Neutrophils # Man Lymphocytes # (Manual) APTT POC ABG pH ABG pH POC ABG pCO2 POC ABG pO2 ABG pO2 ABG HCO3 ABG Base Excess ABG Hemoglobin VBG pH Oxyhemoglobin Sodium Potassium Chloride Carbon Dioxide BUN Creatinine Glucose POC Glucose 250 H 155 H 251 H Lactic Acid Calcium AST ALT Alkaline Phosphatase CK-MB (CK-2) CK-MB (CK-2) Rel Index Total Protein Albumin TSH Urine WBC (Auto) Salicylates 03/22/17 03/22/17 03/23/17 13:46 21:16 00:23 WBC RBC Hgb Hct MCV MCH RDW Plt Count Lymph % (Auto) [place] % (Auto) Eos % (Auto) [place] # Seg Neutrophils % Seg Neuts % (Manual) Lymphocytes % (Manual) Seg Neutrophils # Seg Neutrophils # Man Lymphocytes # (Manual) APTT POC ABG pH ABG pH POC ABG pCO2 POC ABG pO2 ABG pO2 ABG HCO3 ABG Base Excess ABG Hemoglobin VBG pH Oxyhemoglobin Sodium Potassium Chloride Carbon Dioxide BUN Creatinine Glucose POC Glucose 269 H 197 H 126 H Lactic Acid Calcium AST ALT Alkaline Phosphatase CK-MB (CK-2) CK-MB (CK-2) Rel Index Total Protein Albumin TSH Urine WBC (Auto) Salicylates 03/23/17 03/23/17 03/23/17 05:39 14:06 21:39 WBC RBC Hgb Hct MCV MCH RDW Plt Count Lymph % (Auto) [place] % (Auto) Eos % (Auto) [place] # Seg Neutrophils % Seg Neuts % (Manual) Lymphocytes % (Manual) Seg Neutrophils # Seg Neutrophils # Man Lymphocytes # (Manual) APTT POC ABG pH ABG pH POC ABG pCO2 POC ABG pO2 ABG pO2 ABG HCO3 ABG Base Excess ABG Hemoglobin VBG pH Oxyhemoglobin Sodium Potassium Chloride Carbon Dioxide BUN Creatinine Glucose POC Glucose 234 H 241 H 248 H Lactic Acid Calcium AST ALT Alkaline Phosphatase CK-MB (CK-2) CK-MB (CK-2) Rel Index Total Protein Albumin TSH Urine WBC (Auto) Salicylates 03/24/17 03/24/17 03/25/17 05:06 21:46 05:38 WBC RBC Hgb Hct MCV MCH RDW Plt Count Lymph % (Auto) [place] % (Auto) Eos % (Auto) [place] # Seg Neutrophils % Seg Neuts % (Manual) Lymphocytes % (Manual) Seg Neutrophils # Seg Neutrophils # Man Lymphocytes # (Manual) APTT POC ABG pH ABG pH POC ABG pCO2 POC ABG pO2 ABG pO2 ABG HCO3 ABG Base Excess ABG Hemoglobin VBG pH Oxyhemoglobin Sodium Potassium Chloride Carbon Dioxide BUN Creatinine Glucose POC Glucose 232 H 276 H 242 H Lactic Acid Calcium AST ALT Alkaline Phosphatase CK-MB (CK-2) CK-MB (CK-2) Rel Index Total Protein Albumin TSH Urine WBC (Auto) Salicylates 03/25/17 03/25/17 03/26/17 14:30 23:14 13:53 WBC RBC Hgb Hct MCV MCH RDW Plt Count Lymph % (Auto) [place] % (Auto) Eos % (Auto) [place] # Seg Neutrophils % Seg Neuts % (Manual) Lymphocytes % (Manual) Seg Neutrophils # Seg Neutrophils # Man Lymphocytes # (Manual) APTT POC ABG pH ABG pH POC ABG pCO2 POC ABG pO2 ABG pO2 ABG HCO3 ABG Base Excess ABG Hemoglobin VBG pH Oxyhemoglobin Sodium Potassium Chloride Carbon Dioxide BUN Creatinine Glucose POC Glucose 246 H 208 H 195 H Lactic Acid Calcium AST ALT Alkaline Phosphatase CK-MB (CK-2) CK-MB (CK-2) Rel Index Total Protein Albumin TSH Urine WBC (Auto) Salicylates 03/26/17 03/27/17 03/27/17 21:58 05:18 14:57 WBC RBC Hgb Hct MCV MCH RDW Plt Count Lymph % (Auto) [place] % (Auto) Eos % (Auto) [place] # Seg Neutrophils % Seg Neuts % (Manual) Lymphocytes % (Manual) Seg Neutrophils # Seg Neutrophils # Man Lymphocytes # (Manual) APTT POC ABG pH ABG pH POC ABG pCO2 POC ABG pO2 ABG pO2 ABG HCO3 ABG Base Excess ABG Hemoglobin VBG pH Oxyhemoglobin Sodium Potassium Chloride Carbon Dioxide BUN Creatinine Glucose POC Glucose 241 H 199 H 269 H Lactic Acid Calcium AST ALT Alkaline Phosphatase CK-MB (CK-2) CK-MB (CK-2) Rel Index Total Protein Albumin TSH Urine WBC (Auto) Salicylates 03/27/17 03/28/17 03/28/17 21:33 13:52 21:29 WBC RBC Hgb Hct MCV MCH RDW Plt Count Lymph % (Auto) [place] % (Auto) Eos % (Auto) [place] # Seg Neutrophils % Seg Neuts % (Manual) Lymphocytes % (Manual) Seg Neutrophils # Seg Neutrophils # Man Lymphocytes # (Manual) APTT POC ABG pH ABG pH POC ABG pCO2 POC ABG pO2 ABG pO2 ABG HCO3 ABG Base Excess ABG Hemoglobin VBG pH Oxyhemoglobin Sodium Potassium Chloride Carbon Dioxide BUN Creatinine Glucose POC Glucose 214 H 243 H 286 H Lactic Acid Calcium AST ALT Alkaline Phosphatase CK-MB (CK-2) CK-MB (CK-2) Rel Index Total Protein Albumin TSH Urine WBC (Auto) Salicylates 03/29/17 03/29/17 03/29/17 04:32 04:32 13:58 WBC RBC Hgb 10.6 L Hct 32.9 L MCV 78 L MCH 25 L RDW 17.6 H Plt Count Lymph % (Auto) 38.0 H [place] % (Auto) 9.7 H Eos % (Auto) [place] # Seg Neutrophils % Seg Neuts % (Manual) Lymphocytes % (Manual) Seg Neutrophils # Seg Neutrophils # Man Lymphocytes # (Manual) APTT POC ABG pH ABG pH POC ABG pCO2 POC ABG pO2 ABG pO2 ABG HCO3 ABG Base Excess ABG Hemoglobin VBG pH Oxyhemoglobin Sodium 132 L Potassium Chloride 94.0 L Carbon Dioxide BUN 28 H Creatinine 0.5 L Glucose 236 H POC Glucose 171 H Lactic Acid Calcium AST ALT 71 H Alkaline Phosphatase 391 H CK-MB (CK-2) CK-MB (CK-2) Rel Index Total Protein 8.3 H Albumin 2.9 L TSH Urine WBC (Auto) Salicylates 03/29/17 03/30/17 03/30/17 20:59 06:07 11:52 WBC RBC Hgb Hct MCV MCH RDW Plt Count Lymph % (Auto) [place] % (Auto) Eos % (Auto) [place] # Seg Neutrophils % Seg Neuts % (Manual) Lymphocytes % (Manual) Seg Neutrophils # Seg Neutrophils # Man Lymphocytes # (Manual) APTT POC ABG pH ABG pH POC ABG pCO2 POC ABG pO2 ABG pO2 ABG HCO3 ABG Base Excess ABG Hemoglobin VBG pH Oxyhemoglobin Sodium Potassium Chloride Carbon Dioxide BUN Creatinine Glucose POC Glucose 215 H 259 H 197 H Lactic Acid Calcium AST ALT Alkaline Phosphatase CK-MB (CK-2) CK-MB (CK-2) Rel Index Total Protein Albumin TSH Urine WBC (Auto) Salicylates 03/30/17 03/31/17 03/31/17 21:34 05:42 14:34 WBC RBC Hgb Hct MCV MCH RDW Plt Count Lymph % (Auto) [place] % (Auto) Eos % (Auto) [place] # Seg Neutrophils % Seg Neuts % (Manual) Lymphocytes % (Manual) Seg Neutrophils # Seg Neutrophils # Man Lymphocytes # (Manual) APTT POC ABG pH ABG pH POC ABG pCO2 POC ABG pO2 ABG pO2 ABG HCO3 ABG Base Excess ABG Hemoglobin VBG pH Oxyhemoglobin Sodium Potassium Chloride Carbon Dioxide BUN Creatinine Glucose POC Glucose 207 H 184 H 213 H Lactic Acid Calcium AST ALT Alkaline Phosphatase CK-MB (CK-2) CK-MB (CK-2) Rel Index Total Protein Albumin TSH Urine WBC (Auto) Salicylates 03/31/17 04/01/17 04/01/17 21:32 05:53 13:48 WBC RBC Hgb Hct MCV MCH RDW Plt Count Lymph % (Auto) [place] % (Auto) Eos % (Auto) [place] # Seg Neutrophils % Seg Neuts % (Manual) Lymphocytes % (Manual) Seg Neutrophils # Seg Neutrophils # Man Lymphocytes # (Manual) APTT POC ABG pH ABG pH POC ABG pCO2 POC ABG pO2 ABG pO2 ABG HCO3 ABG Base Excess ABG Hemoglobin VBG pH Oxyhemoglobin Sodium Potassium Chloride Carbon Dioxide BUN Creatinine Glucose POC Glucose 249 H 225 H 256 H Lactic Acid Calcium AST ALT Alkaline Phosphatase CK-MB (CK-2) CK-MB (CK-2) Rel Index Total Protein Albumin TSH Urine WBC (Auto) Salicylates 04/01/17 04/02/17 04/02/17 21:34 05:32 14:05 WBC RBC Hgb Hct MCV MCH RDW Plt Count Lymph % (Auto) [place] % (Auto) Eos % (Auto) [place] # Seg Neutrophils % Seg Neuts % (Manual) Lymphocytes % (Manual) Seg Neutrophils # Seg Neutrophils # Man Lymphocytes # (Manual) APTT POC ABG pH ABG pH POC ABG pCO2 POC ABG pO2 ABG pO2 ABG HCO3 ABG Base Excess ABG Hemoglobin VBG pH Oxyhemoglobin Sodium Potassium Chloride Carbon Dioxide BUN Creatinine Glucose POC Glucose 292 H 220 H 187 H Lactic Acid Calcium AST ALT Alkaline Phosphatase CK-MB (CK-2) CK-MB (CK-2) Rel Index Total Protein Albumin TSH Urine WBC (Auto) Salicylates 04/02/17 04/03/17 04/03/17 21:57 04:49 14:12 WBC RBC Hgb Hct MCV MCH RDW Plt Count Lymph % (Auto) [place] % (Auto) Eos % (Auto) [place] # Seg Neutrophils % Seg Neuts % (Manual) Lymphocytes % (Manual) Seg Neutrophils # Seg Neutrophils # Man Lymphocytes # (Manual) APTT POC ABG pH ABG pH POC ABG pCO2 POC ABG pO2 ABG pO2 ABG HCO3 ABG Base Excess ABG Hemoglobin VBG pH Oxyhemoglobin Sodium Potassium Chloride Carbon Dioxide BUN Creatinine Glucose POC Glucose 285 H 256 H 197 H Lactic Acid Calcium AST ALT Alkaline Phosphatase CK-MB (CK-2) CK-MB (CK-2) Rel Index Total Protein Albumin TSH Urine WBC (Auto) Salicylates 04/03/17 04/04/17 04/04/17 21:11 05:20 13:18 WBC RBC Hgb Hct MCV MCH RDW Plt Count Lymph % (Auto) [place] % (Auto) Eos % (Auto) [place] # Seg Neutrophils % Seg Neuts % (Manual) Lymphocytes % (Manual) Seg Neutrophils # Seg Neutrophils # Man Lymphocytes # (Manual) APTT POC ABG pH ABG pH POC ABG pCO2 POC ABG pO2 ABG pO2 ABG HCO3 ABG Base Excess ABG Hemoglobin VBG pH Oxyhemoglobin Sodium Potassium Chloride Carbon Dioxide BUN Creatinine Glucose POC Glucose 166 H 228 H 252 H Lactic Acid Calcium AST ALT Alkaline Phosphatase CK-MB (CK-2) CK-MB (CK-2) Rel Index Total Protein Albumin TSH Urine WBC (Auto) Salicylates 04/04/17 04/05/17 04/05/17 21:51 06:14 09:54 WBC RBC Hgb Hct MCV MCH RDW Plt Count Lymph % (Auto) [place] % (Auto) Eos % (Auto) [place] # Seg Neutrophils % Seg Neuts % (Manual) Lymphocytes % (Manual) Seg Neutrophils # Seg Neutrophils # Man Lymphocytes # (Manual) APTT POC ABG pH ABG pH POC ABG pCO2 POC ABG pO2 ABG pO2 ABG HCO3 ABG Base Excess ABG Hemoglobin VBG pH Oxyhemoglobin Sodium Potassium Chloride Carbon Dioxide BUN Creatinine Glucose POC Glucose 252 H 152 H 181 H Lactic Acid Calcium AST ALT Alkaline Phosphatase CK-MB (CK-2) CK-MB (CK-2) Rel Index Total Protein Albumin TSH Urine WBC (Auto) Salicylates 04/05/17 04/05/17 04/05/17 14:49 17:34 21:38 WBC RBC Hgb Hct MCV MCH RDW Plt Count Lymph % (Auto) [place] % (Auto) Eos % (Auto) [place] # Seg Neutrophils % Seg Neuts % (Manual) Lymphocytes % (Manual) Seg Neutrophils # Seg Neutrophils # Man Lymphocytes # (Manual) APTT POC ABG pH ABG pH POC ABG pCO2 POC ABG pO2 ABG pO2 ABG HCO3 ABG Base Excess ABG Hemoglobin VBG pH Oxyhemoglobin Sodium Potassium Chloride Carbon Dioxide BUN Creatinine Glucose POC Glucose 219 H 268 H 278 H Lactic Acid Calcium AST ALT Alkaline Phosphatase CK-MB (CK-2) CK-MB (CK-2) Rel Index Total Protein Albumin TSH Urine WBC (Auto) Salicylates 04/06/17 04/06/17 04/07/17 15:04 22:14 05:09 WBC RBC Hgb Hct MCV MCH RDW Plt Count Lymph % (Auto) [place] % (Auto) Eos % (Auto) [place] # Seg Neutrophils % Seg Neuts % (Manual) Lymphocytes % (Manual) Seg Neutrophils # Seg Neutrophils # Man Lymphocytes # (Manual) APTT POC ABG pH ABG pH POC ABG pCO2 POC ABG pO2 ABG pO2 ABG HCO3 ABG Base Excess ABG Hemoglobin VBG pH Oxyhemoglobin Sodium Potassium Chloride Carbon Dioxide BUN Creatinine Glucose POC Glucose 285 H 106 H 334 H Lactic Acid Calcium AST ALT Alkaline Phosphatase CK-MB (CK-2) CK-MB (CK-2) Rel Index Total Protein Albumin TSH Urine WBC (Auto) Salicylates 04/07/17 04/07/17 04/08/17 14:45 21:48 05:28 WBC RBC Hgb Hct MCV MCH RDW Plt Count Lymph % (Auto) [place] % (Auto) Eos % (Auto) [place] # Seg Neutrophils % Seg Neuts % (Manual) Lymphocytes % (Manual) Seg Neutrophils # Seg Neutrophils # Man Lymphocytes # (Manual) APTT POC ABG pH ABG pH POC ABG pCO2 POC ABG pO2 ABG pO2 ABG HCO3 ABG Base Excess ABG Hemoglobin VBG pH Oxyhemoglobin Sodium Potassium Chloride Carbon Dioxide BUN Creatinine Glucose POC Glucose 173 H 304 H 314 H Lactic Acid Calcium AST ALT Alkaline Phosphatase CK-MB (CK-2) CK-MB (CK-2) Rel Index Total Protein Albumin TSH Urine WBC (Auto) Salicylates 04/08/17 04/08/17 04/08/17 15:57 16:17 22:21 WBC RBC Hgb Hct MCV MCH RDW Plt Count Lymph % (Auto) [place] % (Auto) Eos % (Auto) [place] # Seg Neutrophils % Seg Neuts % (Manual) Lymphocytes % (Manual) Seg Neutrophils # Seg Neutrophils # Man Lymphocytes # (Manual) APTT POC ABG pH ABG pH POC ABG pCO2 POC ABG pO2 ABG pO2 ABG HCO3 ABG Base Excess ABG Hemoglobin VBG pH Oxyhemoglobin Sodium Potassium Chloride Carbon Dioxide BUN Creatinine Glucose POC Glucose 356 H 337 H 323 H Lactic Acid Calcium AST ALT Alkaline Phosphatase CK-MB (CK-2) CK-MB (CK-2) Rel Index Total Protein Albumin TSH Urine WBC (Auto) Salicylates 04/09/17 04/09/17 04/09/17 06:19 15:30 21:52 WBC RBC Hgb Hct MCV MCH RDW Plt Count Lymph % (Auto) [place] % (Auto) Eos % (Auto) [place] # Seg Neutrophils % Seg Neuts % (Manual) Lymphocytes % (Manual) Seg Neutrophils # Seg Neutrophils # Man Lymphocytes # (Manual) APTT POC ABG pH ABG pH POC ABG pCO2 POC ABG pO2 ABG pO2 ABG HCO3 ABG Base Excess ABG Hemoglobin VBG pH Oxyhemoglobin Sodium Potassium Chloride Carbon Dioxide BUN Creatinine Glucose POC Glucose 340 H 332 H 341 H Lactic Acid Calcium AST ALT Alkaline Phosphatase CK-MB (CK-2) CK-MB (CK-2) Rel Index Total Protein Albumin TSH Urine WBC (Auto) Salicylates 04/10/17 04/10/17 04/10/17 01:53 05:33 17:40 WBC RBC Hgb Hct MCV MCH RDW Plt Count Lymph % (Auto) [place] % (Auto) Eos % (Auto) [place] # Seg Neutrophils % Seg Neuts % (Manual) Lymphocytes % (Manual) Seg Neutrophils # Seg Neutrophils # Man Lymphocytes # (Manual) APTT POC ABG pH ABG pH POC ABG pCO2 POC ABG pO2 ABG pO2 ABG HCO3 ABG Base Excess ABG Hemoglobin VBG pH Oxyhemoglobin Sodium Potassium Chloride Carbon Dioxide BUN Creatinine Glucose POC Glucose 261 H 277 H 304 H Lactic Acid Calcium AST ALT Alkaline Phosphatase CK-MB (CK-2) CK-MB (CK-2) Rel Index Total Protein Albumin TSH Urine WBC (Auto) Salicylates 04/10/17 04/11/17 04/11/17 21:29 05:28 14:02 WBC RBC Hgb Hct MCV MCH RDW Plt Count Lymph % (Auto) [place] % (Auto) Eos % (Auto) [place] # Seg Neutrophils % Seg Neuts % (Manual) Lymphocytes % (Manual) Seg Neutrophils # Seg Neutrophils # Man Lymphocytes # (Manual) APTT POC ABG pH ABG pH POC ABG pCO2 POC ABG pO2 ABG pO2 ABG HCO3 ABG Base Excess ABG Hemoglobin VBG pH Oxyhemoglobin Sodium Potassium Chloride Carbon Dioxide BUN Creatinine Glucose POC Glucose 361 H 204 H 236 H Lactic Acid Calcium AST ALT Alkaline Phosphatase CK-MB (CK-2) CK-MB (CK-2) Rel Index Total Protein Albumin TSH Urine WBC (Auto) Salicylates 04/11/17 04/12/17 04/12/17 21:43 05:00 11:53 WBC RBC Hgb Hct MCV MCH RDW Plt Count Lymph % (Auto) [place] % (Auto) Eos % (Auto) [place] # Seg Neutrophils % Seg Neuts % (Manual) Lymphocytes % (Manual) Seg Neutrophils # Seg Neutrophils # Man Lymphocytes # (Manual) APTT POC ABG pH ABG pH POC ABG pCO2 POC ABG pO2 ABG pO2 ABG HCO3 ABG Base Excess ABG Hemoglobin VBG pH Oxyhemoglobin Sodium Potassium Chloride Carbon Dioxide BUN Creatinine Glucose POC Glucose 287 H 294 H 265 H Lactic Acid Calcium AST ALT Alkaline Phosphatase CK-MB (CK-2) CK-MB (CK-2) Rel Index Total Protein Albumin TSH Urine WBC (Auto) Salicylates 04/12/17 04/12/17 04/13/17 21:21 23:44 06:05 WBC RBC Hgb Hct MCV MCH RDW Plt Count Lymph % (Auto) [place] % (Auto) Eos % (Auto) [place] # Seg Neutrophils % Seg Neuts % (Manual) Lymphocytes % (Manual) Seg Neutrophils # Seg Neutrophils # Man Lymphocytes # (Manual) APTT POC ABG pH ABG pH POC ABG pCO2 POC ABG pO2 ABG pO2 ABG HCO3 ABG Base Excess ABG Hemoglobin VBG pH Oxyhemoglobin Sodium Potassium Chloride Carbon Dioxide BUN Creatinine Glucose POC Glucose 289 H 348 H 326 H Lactic Acid Calcium AST ALT Alkaline Phosphatase CK-MB (CK-2) CK-MB (CK-2) Rel Index Total Protein Albumin TSH Urine WBC (Auto) Salicylates 04/13/17 04/13/17 04/14/17 13:54 21:15 05:49 WBC RBC Hgb Hct MCV MCH RDW Plt Count Lymph % (Auto) [place] % (Auto) Eos % (Auto) [place] # Seg Neutrophils % Seg Neuts % (Manual) Lymphocytes % (Manual) Seg Neutrophils # Seg Neutrophils # Man Lymphocytes # (Manual) APTT POC ABG pH ABG pH POC ABG pCO2 POC ABG pO2 ABG pO2 ABG HCO3 ABG Base Excess ABG Hemoglobin VBG pH Oxyhemoglobin Sodium Potassium Chloride Carbon Dioxide BUN Creatinine Glucose POC Glucose 326 H 263 H 319 H Lactic Acid Calcium AST ALT Alkaline Phosphatase CK-MB (CK-2) CK-MB (CK-2) Rel Index Total Protein Albumin TSH Urine WBC (Auto) Salicylates 04/14/17 04/14/17 04/15/17 13:26 23:13 14:24 WBC RBC Hgb Hct MCV MCH RDW Plt Count Lymph % (Auto) [place] % (Auto) Eos % (Auto) [place] # Seg Neutrophils % Seg Neuts % (Manual) Lymphocytes % (Manual) Seg Neutrophils # Seg Neutrophils # Man Lymphocytes # (Manual) APTT POC ABG pH ABG pH POC ABG pCO2 POC ABG pO2 ABG pO2 ABG HCO3 ABG Base Excess ABG Hemoglobin VBG pH Oxyhemoglobin Sodium Potassium Chloride Carbon Dioxide BUN Creatinine Glucose POC Glucose 207 H 365 H 308 H Lactic Acid Calcium AST ALT Alkaline Phosphatase CK-MB (CK-2) CK-MB (CK-2) Rel Index Total Protein Albumin TSH Urine WBC (Auto) Salicylates 04/15/17 04/15/17 04/15/17 21:00 22:18 23:12 WBC RBC Hgb Hct MCV MCH RDW Plt Count Lymph % (Auto) [place] % (Auto) Eos % (Auto) [place] # Seg Neutrophils % Seg Neuts % (Manual) Lymphocytes % (Manual) Seg Neutrophils # Seg Neutrophils # Man Lymphocytes # (Manual) APTT POC ABG pH ABG pH POC ABG pCO2 POC ABG pO2 ABG pO2 ABG HCO3 ABG Base Excess ABG Hemoglobin VBG pH Oxyhemoglobin Sodium Potassium Chloride Carbon Dioxide BUN Creatinine Glucose POC Glucose 407 H 287 H 325 H Lactic Acid Calcium AST ALT Alkaline Phosphatase CK-MB (CK-2) CK-MB (CK-2) Rel Index Total Protein Albumin TSH Urine WBC (Auto) Salicylates 04/16/17 04/16/17 04/16/17 05:30 10:07 14:26 WBC RBC Hgb Hct MCV MCH RDW Plt Count Lymph % (Auto) [place] % (Auto) Eos % (Auto) [place] # Seg Neutrophils % Seg Neuts % (Manual) Lymphocytes % (Manual) Seg Neutrophils # Seg Neutrophils # Man Lymphocytes # (Manual) APTT POC ABG pH ABG pH POC ABG pCO2 POC ABG pO2 ABG pO2 ABG HCO3 ABG Base Excess ABG Hemoglobin VBG pH Oxyhemoglobin Sodium Potassium Chloride Carbon Dioxide BUN Creatinine Glucose POC Glucose 304 H 217 H 344 H Lactic Acid Calcium AST ALT Alkaline Phosphatase CK-MB (CK-2) CK-MB (CK-2) Rel Index Total Protein Albumin TSH Urine WBC (Auto) Salicylates 04/16/17 04/17/17 04/17/17 21:25 05:12 14:19 WBC RBC Hgb Hct MCV MCH RDW Plt Count Lymph % (Auto) [place] % (Auto) Eos % (Auto) [place] # Seg Neutrophils % Seg Neuts % (Manual) Lymphocytes % (Manual) Seg Neutrophils # Seg Neutrophils # Man Lymphocytes # (Manual) APTT POC ABG pH ABG pH POC ABG pCO2 POC ABG pO2 ABG pO2 ABG HCO3 ABG Base Excess ABG Hemoglobin VBG pH Oxyhemoglobin Sodium Potassium Chloride Carbon Dioxide BUN Creatinine Glucose POC Glucose 305 H 233 H 324 H Lactic Acid Calcium AST ALT Alkaline Phosphatase CK-MB (CK-2) CK-MB (CK-2) Rel Index Total Protein Albumin TSH Urine WBC (Auto) Salicylates 04/17/17 04/18/17 04/18/17 21:42 06:21 14:08 WBC RBC Hgb Hct MCV MCH RDW Plt Count Lymph % (Auto) [place] % (Auto) Eos % (Auto) [place] # Seg Neutrophils % Seg Neuts % (Manual) Lymphocytes % (Manual) Seg Neutrophils # Seg Neutrophils # Man Lymphocytes # (Manual) APTT POC ABG pH ABG pH POC ABG pCO2 POC ABG pO2 ABG pO2 ABG HCO3 ABG Base Excess ABG Hemoglobin VBG pH Oxyhemoglobin Sodium Potassium Chloride Carbon Dioxide BUN Creatinine Glucose POC Glucose 270 H 308 H 290 H Lactic Acid Calcium AST ALT Alkaline Phosphatase CK-MB (CK-2) CK-MB (CK-2) Rel Index Total Protein Albumin TSH Urine WBC (Auto) Salicylates 04/18/17 04/19/17 04/19/17 21:50 05:20 13:59 WBC RBC Hgb Hct MCV MCH RDW Plt Count Lymph % (Auto) [place] % (Auto) Eos % (Auto) [place] # Seg Neutrophils % Seg Neuts % (Manual) Lymphocytes % (Manual) Seg Neutrophils # Seg Neutrophils # Man Lymphocytes # (Manual) APTT POC ABG pH ABG pH POC ABG pCO2 POC ABG pO2 ABG pO2 ABG HCO3 ABG Base Excess ABG Hemoglobin VBG pH Oxyhemoglobin Sodium Potassium Chloride Carbon Dioxide BUN Creatinine Glucose POC Glucose 167 H 372 H 321 H Lactic Acid Calcium AST ALT Alkaline Phosphatase CK-MB (CK-2) CK-MB (CK-2) Rel Index Total Protein Albumin TSH Urine WBC (Auto) Salicylates 04/19/17 04/20/17 04/20/17 21:16 14:18 21:34 WBC RBC Hgb Hct MCV MCH RDW Plt Count Lymph % (Auto) [place] % (Auto) Eos % (Auto) [place] # Seg Neutrophils % Seg Neuts % (Manual) Lymphocytes % (Manual) Seg Neutrophils # Seg Neutrophils # Man Lymphocytes # (Manual) APTT POC ABG pH ABG pH POC ABG pCO2 POC ABG pO2 ABG pO2 ABG HCO3 ABG Base Excess ABG Hemoglobin VBG pH Oxyhemoglobin Sodium Potassium Chloride Carbon Dioxide BUN Creatinine Glucose POC Glucose 182 H 218 H 121 H Lactic Acid Calcium AST ALT Alkaline Phosphatase CK-MB (CK-2) CK-MB (CK-2) Rel Index Total Protein Albumin TSH Urine WBC (Auto) Salicylates 04/21/17 04/21/17 04/21/17 00:08 05:16 12:41 WBC RBC Hgb Hct MCV MCH RDW Plt Count Lymph % (Auto) [place] % (Auto) Eos % (Auto) [place] # Seg Neutrophils % Seg Neuts % (Manual) Lymphocytes % (Manual) Seg Neutrophils # Seg Neutrophils # Man Lymphocytes # (Manual) APTT POC ABG pH ABG pH POC ABG pCO2 POC ABG pO2 ABG pO2 ABG HCO3 ABG Base Excess ABG Hemoglobin VBG pH Oxyhemoglobin Sodium Potassium Chloride Carbon Dioxide BUN Creatinine Glucose POC Glucose 128 H 120 H 216 H Lactic Acid Calcium AST ALT Alkaline Phosphatase CK-MB (CK-2) CK-MB (CK-2) Rel Index Total Protein Albumin TSH Urine WBC (Auto) Salicylates 04/21/17 04/22/17 04/22/17 23:40 14:12 23:38 WBC RBC Hgb Hct MCV MCH RDW Plt Count Lymph % (Auto) [place] % (Auto) Eos % (Auto) [place] # Seg Neutrophils % Seg Neuts % (Manual) Lymphocytes % (Manual) Seg Neutrophils # Seg Neutrophils # Man Lymphocytes # (Manual) APTT POC ABG pH ABG pH POC ABG pCO2 POC ABG pO2 ABG pO2 ABG HCO3 ABG Base Excess ABG Hemoglobin VBG pH Oxyhemoglobin Sodium Potassium Chloride Carbon Dioxide BUN Creatinine Glucose POC Glucose 157 H 242 H 117 H Lactic Acid Calcium AST ALT Alkaline Phosphatase CK-MB (CK-2) CK-MB (CK-2) Rel Index Total Protein Albumin TSH Urine WBC (Auto) Salicylates 04/23/17 04/23/17 04/24/17 05:18 14:01 03:24 WBC RBC Hgb Hct MCV MCH RDW Plt Count Lymph % (Auto) [place] % (Auto) Eos % (Auto) [place] # Seg Neutrophils % Seg Neuts % (Manual) Lymphocytes % (Manual) Seg Neutrophils # Seg Neutrophils # Man Lymphocytes # (Manual) APTT POC ABG pH ABG pH POC ABG pCO2 POC ABG pO2 ABG pO2 ABG HCO3 ABG Base Excess ABG Hemoglobin VBG pH Oxyhemoglobin Sodium Potassium Chloride Carbon Dioxide BUN Creatinine Glucose POC Glucose 163 H 57 L 177 H Lactic Acid Calcium AST ALT Alkaline Phosphatase CK-MB (CK-2) CK-MB (CK-2) Rel Index Total Protein Albumin TSH Urine WBC (Auto) Salicylates 04/24/17 04/24/17 04/24/17 04:00 04:00 06:33 WBC RBC Hgb 9.9 L Hct 30.0 L MCV 79 L MCH 26 L RDW 17.1 H Plt Count 625 H Lymph % (Auto) [place] % (Auto) 8.4 H Eos % (Auto) [place] # Seg Neutrophils % Seg Neuts % (Manual) Lymphocytes % (Manual) Seg Neutrophils # Seg Neutrophils # Man Lymphocytes # (Manual) APTT POC ABG pH ABG pH POC ABG pCO2 POC ABG pO2 ABG pO2 ABG HCO3 ABG Base Excess ABG Hemoglobin VBG pH Oxyhemoglobin Sodium 136 L Potassium Chloride 94.9 L Carbon Dioxide BUN 40 H Creatinine 0.6 L Glucose 176 H POC Glucose 230 H Lactic Acid Calcium AST 67 H ALT Alkaline Phosphatase 294 H CK-MB (CK-2) CK-MB (CK-2) Rel Index Total Protein 9.0 H Albumin 2.5 L TSH Urine WBC (Auto) Salicylates 04/24/17 04/25/17 04/25/17 13:50 00:22 02:55 WBC RBC 3.54 L Hgb 9.0 L Hct 27.9 L MCV 79 L MCH 26 L RDW 17.5 H Plt Count 574 H Lymph % (Auto) [place] % (Auto) 10.4 H Eos % (Auto) [place] # 1.0 H Seg Neutrophils % Seg Neuts % (Manual) Lymphocytes % (Manual) Seg Neutrophils # Seg Neutrophils # Man Lymphocytes # (Manual) APTT POC ABG pH ABG pH POC ABG pCO2 POC ABG pO2 ABG pO2 ABG HCO3 ABG Base Excess ABG Hemoglobin VBG pH Oxyhemoglobin Sodium Potassium Chloride Carbon Dioxide BUN Creatinine Glucose POC Glucose 116 H < 40 L Lactic Acid Calcium AST ALT Alkaline Phosphatase CK-MB (CK-2) CK-MB (CK-2) Rel Index Total Protein Albumin TSH Urine WBC (Auto) Salicylates 04/25/17 04/25/17 04/25/17 02:55 11:15 18:36 WBC RBC Hgb Hct MCV MCH RDW Plt Count Lymph % (Auto) [place] % (Auto) Eos % (Auto) [place] # Seg Neutrophils % Seg Neuts % (Manual) Lymphocytes % (Manual) Seg Neutrophils # Seg Neutrophils # Man Lymphocytes # (Manual) APTT POC ABG pH ABG pH POC ABG pCO2 POC ABG pO2 ABG pO2 ABG HCO3 ABG Base Excess ABG Hemoglobin VBG pH Oxyhemoglobin Sodium Potassium Chloride 96.2 L Carbon Dioxide BUN 39 H Creatinine 0.7 L Glucose 125 H POC Glucose 227 H 280 H Lactic Acid Calcium AST ALT Alkaline Phosphatase 247 H CK-MB (CK-2) CK-MB (CK-2) Rel Index Total Protein Albumin 2.7 L TSH Urine WBC (Auto) Salicylates 04/25/17 04/26/17 04/26/17 21:49 06:53 07:27 WBC RBC 3.61 L Hgb 9.1 L Hct 28.1 L MCV 78 L MCH 25 L RDW 17.4 H Plt Count 594 H Lymph % (Auto) [place] % (Auto) 9.2 H Eos % (Auto) [place] # 1.0 H Seg Neutrophils % 70.6 H Seg Neuts % (Manual) Lymphocytes % (Manual) Seg Neutrophils # Seg Neutrophils # Man Lymphocytes # (Manual) APTT POC ABG pH ABG pH POC ABG pCO2 POC ABG pO2 ABG pO2 ABG HCO3 ABG Base Excess ABG Hemoglobin VBG pH Oxyhemoglobin Sodium Potassium Chloride Carbon Dioxide BUN Creatinine Glucose POC Glucose 192 H 60 L Lactic Acid Calcium AST ALT Alkaline Phosphatase CK-MB (CK-2) CK-MB (CK-2) Rel Index Total Protein Albumin TSH Urine WBC (Auto) Salicylates 04/26/17 07:27 WBC RBC Hgb Hct MCV MCH RDW Plt Count Lymph % (Auto) [place] % (Auto) Eos % (Auto) [place] # Seg Neutrophils % Seg Neuts % (Manual) Lymphocytes % (Manual) Seg Neutrophils # Seg Neutrophils # Man Lymphocytes # (Manual) APTT POC ABG pH ABG pH POC ABG pCO2 POC ABG pO2 ABG pO2 ABG HCO3 ABG Base Excess ABG Hemoglobin VBG pH Oxyhemoglobin Sodium Potassium Chloride 95.0 L Carbon Dioxide BUN 42 H Creatinine 0.7 L Glucose 172 H POC Glucose Lactic Acid Calcium AST 56 H ALT Alkaline Phosphatase 274 H CK-MB (CK-2) CK-MB (CK-2) Rel Index Total Protein 8.9 H Albumin 2.7 L TSH Urine WBC (Auto) Salicylates
--- NOTE | 2017-04-26 09:39 | Progress Note ---
Assessment and Plan Assessment and plan: 51 YO Male with CKD,HTN, DM presents to ED after found down and unresponsive by his neighbor, who subsequently called EMS. Upon arrival, patient found unresponsive on the floor with a serum glucose of 21, patient has a known history of alcohol abuse and delirium tremens. The patient was administered D5 approximate 500 mls during transport without change in mental status/level of consciousness. Pt seen and evaluated in ED was was found to be unable to protect his airway. Pt intubated and placed on vent support. 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 very poor prognosis Metabolic encephalopathy: Supportive care Hypoglycemia/hypothermia, resolved Acute respiratory failure mechanical ventilator greater than 96 hours: wean as tolerated. Pulm. following Hyponatremia: corrected Hypothyroidism: On levothyroxine IDDM : continue with SSI Anemia of chronic disease. Hypertension: Controlled Cont supportive care and current medication. Monitor vitals. Not weaniable and tach not indicated as per Pulm Pulm Patient is DNR- needs guardianship from the state to give consent for further management, as has no family to give consent. Very poor prognosis, History Interval history: Patient found unresponsive, diagnosed with hypoglycemia with brain injury, Still unresponsive, no new events Hospitalist Physical - Physical exam Narrative exam: Gen Appearance: Not in acute distress, malnourished, intubated HEENT: normocephalic, atraumatic Neck: supple, no JVD Lungs: clear to auscultation bilaterally, no crackles or wheezes Heart: S1 and S2 regular, no murmurs, rubs or gallop Abdomen: Soft , non tender, non distended, normal bowel sounds Extremity: No edema, clubbing or cyanosis Neuro : Intubated, Unresponsive, vegetative state - Constitutional Vitals: Temp Pulse Resp BP Pulse Ox 98.6 F 83 15 117/70 97 04/26/17 08:00 04/26/17 06:00 04/26/17 06:00 04/26/17 06:00 04/26/17 06:00 General appearance: Present: no acute distress, well-nourished Results - Labs CBC & Chem 7: 04/26/17 07:27 04/26/17 07:27 Labs: Laboratory Last Values WBC 10.4 K/mm3 (4.5-11.0) 04/26/17 07:27 RBC 3.61 M/mm3 (3.65-5.03) L 04/26/17 07:27 Hgb 9.1 gm/dl (11.8-15.2) L 04/26/17 07:27 Hct 28.1 % (35.5-45.6) L 04/26/17 07:27 MCV 78 fl (84-94) L 04/26/17 07: MCH 25 pg (28-32) L 04/26/17 07: MCHC 32 % (32-34) 04/26/17 07: RDW 17.4 % (13.2-15.2) H 04/26/17 07:27 Plt Count 594 K/mm3 (140-440) H 04/26/17 07:27 Lymph % (Auto) 18.6 % (13.4-35.0) 04/26/17 07: [place] % (Auto) 9.2 % (0.0-7.3) H 04/26/17 07:27 Eos % (Auto) 0.9 % (0.0-4.3) 04/26/17 07: Baso % (Auto) 0.7 % (0.0-1.8) 04/26/17 07:27 Lymph # 1.9 K/mm3 (1.2-5.4) 04/26/17 07:27 [place] # 1.0 K/mm3 (0.0-0.8) H 04/26/17 07:27 Eos # 0.1 K/mm3 (0.0-0.4) 04/26/17 07:27 Baso # 0.1 K/mm3 (0.0-0.1) 04/26/17 07:27 Add Manual Diff Complete 01/10/17 04:30 Total Counted 100 01/10/17 04:30 Seg Neutrophils % 70.6 % (40.0-70.0) H 04/26/17 07:27 Seg Neuts % (Manual) 88.0 % (40.0-70.0) H 01/10/17 04:30 Band Neutrophils % 7.0 % 01/10/17 04:30 Lymphocytes % (Manual) 4.0 % (13.4-35.0) L 01/10/17 04:30 Reactive Lymphs % (Man) 0 % 01/10/17 04:30 Monocytes % (Manual) 1.0 % (0.0-7.3) 01/10/17 04:30 Eosinophils % (Manual) 0 % (0.0-4.3) 01/10/17 04:30 Basophils % (Manual) 0 % (0.0-1.8) 01/10/17 04:30 Metamyelocytes % 0 % 01/10/17 04:30 Myelocytes % 0 % 01/10/17 04:30 Promyelocytes % 0 % 01/10/17 04:30 Blast Cells % 0 % 01/10/17 04:30 Nucleated RBC % Not Reportable 01/10/17 04:30 Seg Neutrophils # 7.3 K/mm3 (1.8-7.7) 04/26/17 07:27 Seg Neutrophils # Man 21.2 K/mm3 (1.8-7.7) H 01/10/17 04:30 Band Neutrophils # 1.7 K/mm3 01/10/17 04:30 Lymphocytes # (Manual) 1.0 K/mm3 (1.2-5.4) L 01/10/17 04:30 Abs React Lymphs (Man) 0.0 K/mm3 01/10/17 04:30 Monocytes # (Manual) 0.2 K/mm3 (0.0-0.8) 01/10/17 04:30 Eosinophils # (Manual) 0.0 K/mm3 (0.0-0.4) 01/10/17 04:30 Basophils # (Manual) 0.0 K/mm3 (0.0-0.1) 01/10/17 04:30 Metamyelocytes # 0.0 K/mm3 01/10/17 04:30 Myelocytes # 0.0 K/mm3 01/10/17 04:30 Promyelocytes # 0.0 K/mm3 01/10/17 04:30 Blast Cells # 0.0 K/mm3 01/10/17 04:30 WBC Morphology Not Reportable 01/10/17 04:30 Hypersegmented Neuts Not Reportable 01/10/17 04:30 Hyposegmented Neuts Not Reportable 01/10/17 04:30 Hypogranular Neuts Not Reportable 01/10/17 04:30 Smudge Cells Not Reportable 01/10/17 04:30 Toxic Granulation Not Reportable 01/10/17 04:30 Toxic Vacuolation Not Reportable 01/10/17 04:30 Dohle Bodies Not Reportable 01/10/17 04:30 Pelger-Huet Anomaly Not Reportable 01/10/17 04:30 Shelby Rods Not Reportable 01/10/17 04:30 Platelet Estimate Consistent w auto 01/10/17 04:30 Clumped Platelets Not Reportable 01/10/17 04:30 Plt Clumps, EDTA Not Reportable 01/10/17 04:30 Large Platelets Not Reportable 01/10/17 04:30 Giant Platelets Not Reportable 01/10/17 04:30 Platelet Satelliting Not Reportable 01/10/17 04:30 Plt Morphology Comment Not Reportable 01/10/17 04:30 RBC Morphology Not Reportable 01/10/17 04:30 Dimorphic RBCs Not Reportable 01/10/17 04:30 Polychromasia Not Reportable 01/10/17 04:30 Hypochromasia 1+ 01/10/17 04:30 Poikilocytosis Not Reportable 01/10/17 04:30 Anisocytosis Not Reportable 01/10/17 04:30 Microcytosis Not Reportable 01/10/17 04:30 Macrocytosis Not Reportable 01/10/17 04:30 Spherocytes Not Reportable 01/10/17 04:30 Pappenheimer Bodies Not Reportable 01/10/17 04:30 Sickle Cells Not Reportable 01/10/17 04:30 Target Cells Not Reportable 01/10/17 04:30 Tear Drop Cells Not Reportable 01/10/17 04:30 Ovalocytes Not Reportable 01/10/17 04:30 Helmet Cells Not Reportable 01/10/17 04:30 [place] Bodies Not Reportable 01/10/17 04:30 [place] Rings Not Reportable 01/10/17 04:30 [place] Cells Not Reportable 01/10/17 04:30 Bite Cells Not Reportable 01/10/17 04:30 Crenated Cell Not Reportable 01/10/17 04:30 Elliptocytes Not Reportable 01/10/17 04:30 Acanthocytes (Spur) Not Reportable 01/10/17 04:30 Rouleaux Not Reportable 01/10/17 04:30 Hemoglobin C Crystals Not Reportable 01/10/17 04:30 Schistocytes Not Reportable 01/10/17 04:30 Malaria parasites Not Reportable 01/10/17 04:30 [place] Bodies Not Reportable 01/10/17 04:30 Hem Pathologist Commnt No 01/10/17 04:30 PT 14.1 Sec. (12.2-14.9) 01/17/17 04:10 INR 1.04 (0.87-1.13) 01/17/17 04:10 APTT 36.6 Sec. (24.2-36.6) 01/17/17 04:10 POC ABG pH 7.442 (7.35-7.45) 01/31/17 18:55 ABG pH 7.420 pH Units (7.350-7.450) 01/17/17 04:35 POC ABG pCO2 32.8 (35-45) L 01/31/17 18:55 ABG pCO2 34.5 mm Hg 01/17/17 04:35 POC ABG pO2 82 (80-105) 01/31/17 18:55 ABG pO2 160.3 mm Hg (80.0-90.0) H 01/17/17 04:35 POC ABG HCO3 22.4 01/31/17 18:55 ABG HCO3 21.9 mmol/L (20.0-26.0) 01/17/17 04:35 POC ABG Total CO2 23 01/31/17 18:55 POC ABG O2 Sat 97 01/31/17 18:55 ABG O2 Saturation 99.0 % (95.0-99.0) 01/17/17 04:35 ABG O2 Content 11.1 (0.0-44) 01/17/17 04:35 POC ABG Base Excess -2 01/31/17 18:55 ABG Base Excess -2.3 mmol/L (-2.0-3.0) L 01/17/17 04:35 ABG Hemoglobin 7.9 gm/dl (14.0-18.0) L 01/17/17 04:35 ABG Carboxyhemoglobin 1.5 % (0.0-5.0) 01/17/17 04:35 ABG Methemoglobin 0.5 % (0.0-1.5) 01/17/17 04:35 VBG pH 7.284 (7.320-7.420) L 01/09/17 10:16 Oxyhemoglobin 97.1 % (95.0-99.0) 01/17/17 04:35 FiO2 25 % 01/31/17 18:55 Sodium 137 mmol/L (137-145) 04/26/17 07:27 Potassium 5.0 mmol/L (3.6-5.0) 04/26/17 07:27 Chloride 95.0 mmol/L (98-107) L 04/26/17 07:27 Carbon Dioxide 29 mmol/L (22-30) 04/26/17 07:27 Anion Gap 18 mmol/L 04/26/17 07:27 BUN 42 mg/dL (9-20) H 04/26/17 07:27 Creatinine 0.7 mg/dL (0.8-1.5) L 04/26/17 07:27 Estimated GFR > 60 ml/min 04/26/17 07:27 BUN/Creatinine Ratio 60 % 04/26/17 07:27 Glucose 172 mg/dL (75-100) H 04/26/17 07:27 POC Glucose 60 (70-105) L 04/26/17 06:53 Lactic Acid 0.80 mmol/L (0.7-2.0) 01/30/17 11:49 Calcium 9.5 mg/dL (8.4-10.2) 04/26/17 07:27 Phosphorus 3.10 mg/dL (2.5-4.5) 03/29/17 04:32 Magnesium 1.90 mg/dL (1.7-2.3) 03/29/17 04:32 Total Bilirubin 0.40 mg/dL (0.1-1.2) 04/26/17 07:27 AST 56 units/L (5-40) H 04/26/17 07:27 ALT 36 units/L (7-56) 04/26/17 07:27 Alkaline Phosphatase 274 units/L (35-129) H 04/26/17 07:27 Ammonia 35.0 umol/L (25-60) 01/09/17 10:16 Total Creatine Kinase 135 units/L (55-170) 01/09/17 10:16 CK-MB (CK-2) 7.1 ng/mL (0.0-4.0) H 01/09/17 10:16 CK-MB (CK-2) Rel Index 5.2 (0-4) H 01/09/17 10:16 Troponin T < 0.010 ng/mL (0.00-0.029) 01/09/17 10:16 NT-Pro-B Natriuret Pep 602.9 pg/mL (0-900) 01/09/17 10:16 Total Protein 8.9 g/dL (6.3-8.2) H 04/26/17 07:27 Albumin 2.7 g/dL (3.9-5) L 04/26/17 07:27 Albumin/Globulin Ratio 0.4 % 04/26/17 07:27 TSH 52.800 mlU/mL (0.270-4.200) H 01/09/17 10:16 Free T4 0.78 ng/dL (0.76-1.46) 01/09/17 10: Total Cortisol 54.8 mcg/dL () 01/09/17 16:19 Urine Color Yellow (Yellow) 01/28/17 17:52 Urine Turbidity Clear (Clear) 01/28/17 17:52 Urine pH 6.0 (5.0-7.0) 01/28/17 17:52 Ur Specific [place] 1.016 (1.003-1.030) 01/28/17 17:52 Urine Protein 100 mg/dl mg/dL (Negative) 01/28/17 17:52 Urine Glucose (UA) >=500 mg/dL (Negative) 01/28/17 17:52 Urine Ketones Neg mg/dL (Negative) 01/28/17 17:52 Urine Blood Sm (Negative) 01/28/17 17:52 Urine Nitrite Neg (Negative) 01/28/17 17:52 Urine Bilirubin Neg (Negative) 01/28/17 17:52 Urine Urobilinogen < 2.0 mg/dL (<2.0) 01/28/17 17:52 Ur Leukocyte Esterase Lg (Negative) 01/28/17 17:52 Urine WBC (Auto) > 182.0 /HPF (0.0-6.0) H 01/28/17 17:52 Urine RBC (Auto) 113.0 /HPF (0.0-6.0) 01/28/17 17:52 Urine Bacteria (Auto) 2+ /HPF (Negative) 01/28/17 17:52 Urine WBC Clumps 3+ /HPF 01/28/17 17:52 Urine Mucus Few /HPF 01/14/17 14:07 Urine Yeast (Budding) 3+ /HPF 01/14/17 14:07 Salicylates < 0.3 mg/dL (2.8-20.0) L 01/09/17 10:16 Urine Opiates Screen Presumptive negative 01/09/17 10:23 Urine Methadone Screen Presumptive negative 01/09/17 10:23 Acetaminophen < 15.0 ug/mL (10.0-30.0) 01/09/17 10:16 Ur Barbiturates Screen Presumptive negative 01/09/17 10:23 Ur Phencyclidine Scrn Presumptive negative 01/09/17 10:23 Ur Amphetamines Screen Presumptive negative 01/09/17 10:23 U Benzodiazepines Scrn Presumptive negative 01/09/17 10:23 Urine Cocaine Screen Presumptive negative 01/09/17 10:23 U Marijuana (THC) Screen Presumptive negative 01/09/17 10:23 Drugs of Abuse Note Disclamer 01/09/17 10:23 Plasma/Serum Alcohol < 0.01 gm% (0-0.07) 01/09/17 10:16
[2017-04-26] MEDS: PEPCID PO SCH ×2 (10:28→23:54)
[2017-04-26] MEDS: HEPARIN SUB-Q SCH ×2 (10:28→23:55)
[2017-04-26] MEDS: LEVEMIR (NF) SUB-Q SCH (19:29)
[2017-04-27] MEDS: VASELINE LIP THERAPY TP PRN ×2 (05:26→08:56)
[2017-04-27] MEDS: HumuLIN R SUB-Q SCH ×2 (05:44→15:51)
[2017-04-27] MEDS: SYNTHROID PO SCH (05:44)
[2017-04-27 06:45] LABS: Alanine Aminotransferase 58 units/L (7-56); Albumin 2.4 g/dL (3.9-5); BUN/Creatinine Ratio 57; Blood Urea Nitrogen 40 mg/dL (9-20); Hemolysis Index 0
[2017-04-27 06:53] LABS: Basophils # (Auto) 0.1 K/mm3 (0.0-0.1); Basophils % (Auto) 0.9 % (0.0-1.8); Eosinophils # (Auto) 0.2 K/mm3 (0.0-0.4); Hemoglobin 8.7 gm/dl (11.8-15.2); Lymphocytes % (Auto) 26.4 % (13.4-35.0); Mean Corpuscular HGB Conc 32 % (32-34); Mean Corpuscular Volume 77 fl (84-94); Monocytes # (Auto) 0.7 K/mm3 (0.0-0.8); Monocytes % (Auto) 9.6 % (0.0-7.3); Platelet Count 558 K/mm3 (140-440); Red Blood Count 3.49 M/mm3 (3.65-5.03); Red Cell Distribution Width 17.4 % (13.2-15.2)
[2017-04-27 06:57] LABS: Mean Corpuscular Hemoglobin 25 pg (28-32)
[2017-04-27] MEDS: PEPCID PO SCH ×2 (09:51→22:03)
[2017-04-27] MEDS: HEPARIN SUB-Q SCH ×2 (09:51→22:03)
[2017-04-27] MEDS: LEVEMIR (NF) SUB-Q SCH (10:00)
--- NOTE | 2017-04-27 10:10 | Progress Note ---
Assessment and Plan Assessment and plan: 51 YO Male with CKD,HTN, DM presents to ED after found down and unresponsive by his neighbor, who subsequently called EMS. Upon arrival, patient found unresponsive on the floor with a serum glucose of 21, patient has a known history of alcohol abuse and delirium tremens. The patient was administered D5 approximate 500 mls during transport without change in mental status/level of consciousness. Pt seen and evaluated in ED was was found to be unable to protect his airway. Pt intubated and placed on vent support. 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 very poor prognosis Metabolic encephalopathy: Supportive care Hypoglycemia/hypothermia, resolved Acute respiratory failure mechanical ventilator greater than 96 hours: wean as tolerated. Pulm. following Hyponatremia: corrected Hypothyroidism: On levothyroxine IDDM : continue with SSI Anemia of chronic disease. Hypertension: Controlled Cont supportive care and current medication. Monitor vitals. Not weaniable and tach not indicated as per Pulm Pulm Patient is DNR- needs guardianship from the state to give consent for further management, as has no family to give consent. Very poor prognosis, History Interval history: Patient found unresponsive, diagnosed with hypoglycemia with brain injury, Still unresponsive, no new events, Hospitalist Physical - Physical exam Narrative exam: Gen Appearance: Not in acute distress, malnourished, intubated HEENT: normocephalic, atraumatic Neck: supple, no JVD Lungs: clear to auscultation bilaterally, no crackles or wheezes Heart: S1 and S2 regular, no murmurs, rubs or gallop Abdomen: Soft , non tender, non distended, normal bowel sounds Extremity: No edema, clubbing or cyanosis Neuro : Intubated, Unresponsive, vegetative state - Constitutional Vitals: Temp Pulse Resp BP Pulse Ox 98.6 F 93 H 16 123/81 97 04/26/17 16:00 04/27/17 07:45 04/27/17 06:00 04/27/17 07:45 04/27/17 07:45 Results - Labs CBC & Chem 7: 04/27/17 05:10 04/27/17 05:10 Labs: Laboratory Last Values WBC 7.7 K/mm3 (4.5-11.0) 04/27/17 05:10 RBC 3.49 M/mm3 (3.65-5.03) L 04/27/17 05:10 Hgb 8.7 gm/dl (11.8-15.2) L 04/27/17 05:10 Hct 27.0 % (35.5-45.6) L 04/27/17 05:10 MCV 77 fl (84-94) L 04/27/17 05:10 MCH 25 pg (28-32) L 04/27/17 05:10 MCHC 32 % (32-34) 04/27/17 05:10 RDW 17.4 % (13.2-15.2) H 04/27/17 05:10 Plt Count 558 K/mm3 (140-440) H 04/27/17 05:10 Lymph % (Auto) 26.4 % (13.4-35.0) 04/27/17 05:10 [place] % (Auto) 9.6 % (0.0-7.3) H 04/27/17 05:10 Eos % (Auto) 2.0 % (0.0-4.3) 04/27/17 05:10 Baso % (Auto) 0.9 % (0.0-1.8) 04/27/17 05:10 Lymph # 2.0 K/mm3 (1.2-5.4) 04/27/17 05:10 [place] # 0.7 K/mm3 (0.0-0.8) 04/27/17 05:10 Eos # 0.2 K/mm3 (0.0-0.4) 04/27/17 05:10 Baso # 0.1 K/mm3 (0.0-0.1) 04/27/17 05:10 Add Manual Diff Complete 01/10/17 04:30 Total Counted 100 01/10/17 04:30 Seg Neutrophils % 61.1 % (40.0-70.0) 04/27/17 05:10 Seg Neuts % (Manual) 88.0 % (40.0-70.0) H 01/10/17 04:30 Band Neutrophils % 7.0 % 01/10/17 04:30 Lymphocytes % (Manual) 4.0 % (13.4-35.0) L 01/10/17 04:30 Reactive Lymphs % (Man) 0 % 01/10/17 04:30 Monocytes % (Manual) 1.0 % (0.0-7.3) 01/10/17 04:30 Eosinophils % (Manual) 0 % (0.0-4.3) 01/10/17 04:30 Basophils % (Manual) 0 % (0.0-1.8) 01/10/17 04:30 Metamyelocytes % 0 % 01/10/17 04:30 Myelocytes % 0 % 01/10/17 04:30 Promyelocytes % 0 % 01/10/17 04:30 Blast Cells % 0 % 01/10/17 04:30 Nucleated RBC % Not Reportable 01/10/17 04:30 Seg Neutrophils # 4.7 K/mm3 (1.8-7.7) 04/27/17 05:10 Seg Neutrophils # Man 21.2 K/mm3 (1.8-7.7) H 01/10/17 04:30 Band Neutrophils # 1.7 K/mm3 01/10/17 04:30 Lymphocytes # (Manual) 1.0 K/mm3 (1.2-5.4) L 01/10/17 04:30 Abs React Lymphs (Man) 0.0 K/mm3 01/10/17 04:30 Monocytes # (Manual) 0.2 K/mm3 (0.0-0.8) 01/10/17 04:30 Eosinophils # (Manual) 0.0 K/mm3 (0.0-0.4) 01/10/17 04:30 Basophils # (Manual) 0.0 K/mm3 (0.0-0.1) 01/10/17 04:30 Metamyelocytes # 0.0 K/mm3 01/10/17 04:30 Myelocytes # 0.0 K/mm3 01/10/17 04:30 Promyelocytes # 0.0 K/mm3 01/10/17 04:30 Blast Cells # 0.0 K/mm3 01/10/17 04:30 WBC Morphology Not Reportable 01/10/17 04:30 Hypersegmented Neuts Not Reportable 01/10/17 04:30 Hyposegmented Neuts Not Reportable 01/10/17 04:30 Hypogranular Neuts Not Reportable 01/10/17 04:30 Smudge Cells Not Reportable 01/10/17 04:30 Toxic Granulation Not Reportable 01/10/17 04:30 Toxic Vacuolation Not Reportable 01/10/17 04:30 Dohle Bodies Not Reportable 01/10/17 04:30 Pelger-Huet Anomaly Not Reportable 01/10/17 04:30 [place] Rods Not Reportable 01/10/17 04:30 Platelet Estimate Consistent w auto 01/10/17 04:30 Clumped Platelets Not Reportable 01/10/17 04:30 Plt Clumps, EDTA Not Reportable 01/10/17 04:30 Large Platelets Not Reportable 01/10/17 04:30 Giant Platelets Not Reportable 01/10/17 04:30 Platelet Satelliting Not Reportable 01/10/17 04:30 Plt Morphology Comment Not Reportable 01/10/17 04:30 RBC Morphology Not Reportable 01/10/17 04:30 Dimorphic RBCs Not Reportable 01/10/17 04:30 Polychromasia Not Reportable 01/10/17 04:30 Hypochromasia 1+ 01/10/17 04:30 Poikilocytosis Not Reportable 01/10/17 04:30 Anisocytosis Not Reportable 01/10/17 04:30 Microcytosis Not Reportable 01/10/17 04:30 Macrocytosis Not Reportable 01/10/17 04:30 Spherocytes Not Reportable 01/10/17 04:30 Pappenheimer Bodies Not Reportable 01/10/17 04:30 Sickle Cells Not Reportable 01/10/17 04:30 Target Cells Not Reportable 01/10/17 04:30 Tear Drop Cells Not Reportable 01/10/17 04:30 Ovalocytes Not Reportable 01/10/17 04:30 Helmet Cells Not Reportable 01/10/17 04:30 [place] Bodies Not Reportable 01/10/17 04:30 [place] Rings Not Reportable 01/10/17 04:30 [place] Cells Not Reportable 01/10/17 04:30 Bite Cells Not Reportable 01/10/17 04:30 Crenated Cell Not Reportable 01/10/17 04:30 Elliptocytes Not Reportable 01/10/17 04:30 Acanthocytes (Spur) Not Reportable 01/10/17 04:30 Rouleaux Not Reportable 01/10/17 04:30 Hemoglobin C Crystals Not Reportable 01/10/17 04:30 Schistocytes Not Reportable 01/10/17 04:30 Malaria parasites Not Reportable 01/10/17 04:30 Kyle Bodies Not Reportable 01/10/17 04:30 Hem Pathologist Commnt No 01/10/17 04:30 PT 14.1 Sec. (12.2-14.9) 01/17/17 04:10 INR 1.04 (0.87-1.13) 01/17/17 04:10 APTT 36.6 Sec. (24.2-36.6) 01/17/17 04:10 POC ABG pH 7.442 (7.35-7.45) 01/31/17 18:55 ABG pH 7.420 pH Units (7.350-7.450) 01/17/17 04:35 POC ABG pCO2 32.8 (35-45) L 01/31/17 18:55 ABG pCO2 34.5 mm Hg 01/17/17 04:35 POC ABG pO2 82 (80-105) 01/31/17 18:55 ABG pO2 160.3 mm Hg (80.0-90.0) H 01/17/17 04:35 POC ABG HCO3 22.4 01/31/17 18:55 ABG HCO3 21.9 mmol/L (20.0-26.0) 01/17/17 04:35 POC ABG Total CO2 23 01/31/17 18:55 POC ABG O2 Sat 97 01/31/17 18:55 ABG O2 Saturation 99.0 % (95.0-99.0) 01/17/17 04:35 ABG O2 Content 11.1 (0.0-44) 01/17/17 04:35 POC ABG Base Excess -2 01/31/17 18:55 ABG Base Excess -2.3 mmol/L (-2.0-3.0) L 01/17/17 04:35 ABG Hemoglobin 7.9 gm/dl (14.0-18.0) L 01/17/17 04:35 ABG Carboxyhemoglobin 1.5 % (0.0-5.0) 01/17/17 04:35 ABG Methemoglobin 0.5 % (0.0-1.5) 01/17/17 04:35 VBG pH 7.284 (7.320-7.420) L 01/09/17 10:16 Oxyhemoglobin 97.1 % (95.0-99.0) 01/17/17 04:35 FiO2 25 % 01/31/17 18:55 Sodium 133 mmol/L (137-145) L 04/27/17 05:10 Potassium 4.9 mmol/L (3.6-5.0) 04/27/17 05:10 Chloride 93.5 mmol/L (98-107) L 04/27/17 05:10 Carbon Dioxide 28 mmol/L (22-30) 04/27/17 05:10 Anion Gap 16 mmol/L 04/27/17 05:10 BUN 40 mg/dL (9-20) H 04/27/17 05:10 Creatinine 0.7 mg/dL (0.8-1.5) L 04/27/17 05:10 Estimated GFR > 60 ml/min 04/27/17 05:10 BUN/Creatinine Ratio 57 % 04/27/17 05:10 Glucose 179 mg/dL (75-100) H 04/27/17 05:10 POC Glucose 200 (70-105) H 04/27/17 05:45 Lactic Acid 0.80 mmol/L (0.7-2.0) 01/30/17 11:49 Calcium 9.0 mg/dL (8.4-10.2) 04/27/17 05:10 Phosphorus 3.10 mg/dL (2.5-4.5) 03/29/17 04:32 Magnesium 1.90 mg/dL (1.7-2.3) 03/29/17 04:32 Total Bilirubin 0.30 mg/dL (0.1-1.2) 04/27/17 05:10 AST 73 units/L (5-40) H 04/27/17 05:10 ALT 58 units/L (7-56) H 04/27/17 05:10 Alkaline Phosphatase 294 units/L (35-129) H 04/27/17 05:10 Ammonia 35.0 umol/L (25-60) 01/09/17 10:16 Total Creatine Kinase 135 units/L (55-170) 01/09/17 10:16 CK-MB (CK-2) 7.1 ng/mL (0.0-4.0) H 01/09/17 10:16 CK-MB (CK-2) Rel Index 5.2 (0-4) H 01/09/17 10:16 Troponin T < 0.010 ng/mL (0.00-0.029) 01/09/17 10:16 NT-Pro-B Natriuret Pep 602.9 pg/mL (0-900) 01/09/17 10:16 Total Protein 8.7 g/dL (6.3-8.2) H 04/27/17 05:10 Albumin 2.4 g/dL (3.9-5) L 04/27/17 05:10 Albumin/Globulin Ratio 0.4 % 04/27/17 05:10 TSH 52.800 mlU/mL (0.270-4.200) H 01/09/17 10:16 Free T4 0.78 ng/dL (0.76-1.46) 01/09/17 10:16 Total Cortisol 54.8 mcg/dL () 01/09/17 16:19 Urine Color Yellow (Yellow) 01/28/17 17:52 Urine Turbidity Clear (Clear) 01/28/17 17:52 Urine pH 6.0 (5.0-7.0) 01/28/17 17:52 Ur Specific [place] 1.016 (1.003-1.030) 01/28/17 17:52 Urine Protein 100 mg/dl mg/dL (Negative) 01/28/17 17:52 Urine Glucose (UA) >=500 mg/dL (Negative) 01/28/17 17:52 Urine Ketones Neg mg/dL (Negative) 01/28/17 17:52 Urine Blood Sm (Negative) 01/28/17 17:52 Urine Nitrite Neg (Negative) 01/28/17 17:52 Urine Bilirubin Neg (Negative) 01/28/17 17:52 Urine Urobilinogen < 2.0 mg/dL (<2.0) 01/28/17 17:52 Ur Leukocyte Esterase Lg (Negative) 01/28/17 17:52 Urine WBC (Auto) > 182.0 /HPF (0.0-6.0) H 01/28/17 17:52 Urine RBC (Auto) 113.0 /HPF (0.0-6.0) 01/28/17 17:52 Urine Bacteria (Auto) 2+ /HPF (Negative) 01/28/17 17:52 Urine WBC Clumps 3+ /HPF 01/28/17 17:52 Urine Mucus Few /HPF 01/14/17 14:07 Urine Yeast (Budding) 3+ /HPF 01/14/17 14:07 Salicylates < 0.3 mg/dL (2.8-20.0) L 01/09/17 10:16 Urine Opiates Screen Presumptive negative 01/09/17 10:23 Urine Methadone Screen Presumptive negative 01/09/17 10:23 Acetaminophen < 15.0 ug/mL (10.0-30.0) 01/09/17 10:16 Ur Barbiturates Screen Presumptive negative 01/09/17 10:23 Ur Phencyclidine Scrn Presumptive negative 01/09/17 10:23 Ur Amphetamines Screen Presumptive negative 01/09/17 10:23 U Benzodiazepines Scrn Presumptive negative 01/09/17 10:23 Urine Cocaine Screen Presumptive negative 01/09/17 10:23 U Marijuana (THC) Screen Presumptive negative 01/09/17 10:23 Drugs of Abuse Note Disclamer 01/09/17 10:23 Plasma/Serum Alcohol < 0.01 gm% (0-0.07) 01/09/17 10:16
[2017-04-28] MEDS: HumuLIN R SUB-Q SCH ×3 (00:13→22:20)
[2017-04-28] MEDS ORDERED: D50W (25GM) Syringe IV ONE (04:52)
[2017-04-28] MEDS: SIMPLE SYRUP FEEDTUBE PRN (04:57)
[2017-04-28] MEDS: SYNTHROID PO SCH (05:12)
[2017-04-28 06:41] LABS: Basophils # (Auto) 0.1 K/mm3 (0.0-0.1); Basophils % (Auto) 0.8 % (0.0-1.8); Eosinophils # (Auto) 0.2 K/mm3 (0.0-0.4); Eosinophils % (Auto) 1.8 % (0.0-4.3); Hematocrit 26.7 % (35.5-45.6); Hemoglobin 8.8 gm/dl (11.8-15.2); Lymphocytes # (Auto) 1.7 K/mm3 (1.2-5.4); Lymphocytes % (Auto) 18.4 % (13.4-35.0); Mean Corpuscular HGB Conc 33 % (32-34); Mean Corpuscular Volume 77 fl (84-94); Monocytes # (Auto) 0.8 K/mm3 (0.0-0.8); Monocytes % (Auto) 8.4 % (0.0-7.3); Platelet Count 515 K/mm3 (140-440); Red Blood Count 3.48 M/mm3 (3.65-5.03)
[2017-04-28 06:50] LABS: Mean Corpuscular Hemoglobin 25 pg (28-32)
[2017-04-28 07:05] LABS: Alanine Aminotransferase 42 units/L (7-56); Albumin 2.5 g/dL (3.9-5); BUN/Creatinine Ratio 47; Blood Urea Nitrogen 42 mg/dL (9-20); Calcium 9.1 mg/dL (8.4-10.2); Hemolysis Index 0
--- NOTE | 2017-04-28 09:13 | Progress Note ---
Assessment and Plan Assessment and plan: 51 YO Male with CKD,HTN, DM presents to ED after found down and unresponsive by his neighbor, who subsequently called EMS. Upon arrival, patient found unresponsive on the floor with a serum glucose of 21, patient has a known history of alcohol abuse and delirium tremens. The patient was administered D5 approximate 500 mls during transport without change in mental status/level of consciousness. Pt seen and evaluated in ED was was found to be unable to protect his airway. Pt intubated and placed on vent support. 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 very poor prognosis Metabolic encephalopathy: Supportive care Hypoglycemia/hypothermia, resolved Acute respiratory failure mechanical ventilator greater than 96 hours: wean as tolerated. Pulm. following Hyponatremia: corrected Hypothyroidism: On levothyroxine IDDM : continue with SSI Anemia of chronic disease. Hypertension: Controlled Cont supportive care and current medication. Monitor vitals. Not weaniable and tach not indicated as per Pulm Pulm Patient is DNR- needs guardianship from the state to give consent for further management, as has no family to give consent. Very poor prognosis, History Interval history: Patient found unresponsive, diagnosed with hypoglycemia with brain injury, Still unresponsive, no new events, Hospitalist Physical - Physical exam Narrative exam: Gen Appearance: Not in acute distress, malnourished, intubated HEENT: normocephalic, atraumatic Neck: supple, no JVD Lungs: clear to auscultation bilaterally, no crackles or wheezes Heart: S1 and S2 regular, no murmurs, rubs or gallop Abdomen: Soft , non tender, non distended, normal bowel sounds Extremity: No edema, clubbing or cyanosis Neuro : Intubated, Unresponsive, vegetative state - Constitutional Vitals: Temp Pulse Resp BP Pulse Ox 98.7 F 89 14 107/66 97 04/28/17 08:00 04/28/17 07:42 04/28/17 06:00 04/28/17 07:42 04/28/17 07:42 Results - Labs CBC & Chem 7: 04/28/17 05:10 04/28/17 05:10 Labs: Laboratory Last Values WBC 9.3 K/mm3 (4.5-11.0) 04/28/17 05:10 RBC 3.48 M/mm3 (3.65-5.03) L 04/28/17 05:10 Hgb 8.8 gm/dl (11.8-15.2) L 04/28/17 05:10 Hct 26.7 % (35.5-45.6) L 04/28/17 05:10 MCV 77 fl (84-94) L 04/28/17 05:10 MCH 25 pg (28-32) L 04/28/17 05:10 MCHC 33 % (32-34) 04/28/17 05:10 RDW 17.0 % (13.2-15.2) H 04/28/17 05:10 Plt Count 515 K/mm3 (140-440) H 04/28/17 05:10 Lymph % (Auto) 18.4 % (13.4-35.0) 04/28/17 05:10 [place] % (Auto) 8.4 % (0.0-7.3) H 04/28/17 05:10 Eos % (Auto) 1.8 % (0.0-4.3) 04/28/17 05:10 Baso % (Auto) 0.8 % (0.0-1.8) 04/28/17 05:10 Lymph # 1.7 K/mm3 (1.2-5.4) 04/28/17 05:10 [place] # 0.8 K/mm3 (0.0-0.8) 04/28/17 05:10 Eos # 0.2 K/mm3 (0.0-0.4) 04/28/17 05:10 Baso # 0.1 K/mm3 (0.0-0.1) 04/28/17 05:10 Add Manual Diff Complete 01/10/17 04:30 Total Counted 100 01/10/17 04:30 Seg Neutrophils % 70.6 % (40.0-70.0) H 04/28/17 05:10 Seg Neuts % (Manual) 88.0 % (40.0-70.0) H 01/10/17 04:30 Band Neutrophils % 7.0 % 01/10/17 04:30 Lymphocytes % (Manual) 4.0 % (13.4-35.0) L 01/10/17 04:30 Reactive Lymphs % (Man) 0 % 01/10/17 04:30 Monocytes % (Manual) 1.0 % (0.0-7.3) 01/10/17 04:30 Eosinophils % (Manual) 0 % (0.0-4.3) 01/10/17 04:30 Basophils % (Manual) 0 % (0.0-1.8) 01/10/17 04:30 Metamyelocytes % 0 % 01/10/17 04:30 Myelocytes % 0 % 01/10/17 04:30 Promyelocytes % 0 % 01/10/17 04:30 Blast Cells % 0 % 01/10/17 04:30 Nucleated RBC % Not Reportable 01/10/17 04:30 Seg Neutrophils # 6.6 K/mm3 (1.8-7.7) 04/28/17 05:10 Seg Neutrophils # Man 21.2 K/mm3 (1.8-7.7) H 01/10/17 04:30 Band Neutrophils # 1.7 K/mm3 01/10/17 04:30 Lymphocytes # (Manual) 1.0 K/mm3 (1.2-5.4) L 01/10/17 04:30 Abs React Lymphs (Man) 0.0 K/mm3 01/10/17 04:30 Monocytes # (Manual) 0.2 K/mm3 (0.0-0.8) 01/10/17 04:30 Eosinophils # (Manual) 0.0 K/mm3 (0.0-0.4) 01/10/17 04:30 Basophils # (Manual) 0.0 K/mm3 (0.0-0.1) 01/10/17 04:30 Metamyelocytes # 0.0 K/mm3 01/10/17 04:30 Myelocytes # 0.0 K/mm3 01/10/17 04:30 Promyelocytes # 0.0 K/mm3 01/10/17 04:30 Blast Cells # 0.0 K/mm3 01/10/17 04:30 WBC Morphology Not Reportable 01/10/17 04:30 Hypersegmented Neuts Not Reportable 01/10/17 04:30 Hyposegmented Neuts Not Reportable 01/10/17 04:30 Hypogranular Neuts Not Reportable 01/10/17 04:30 Smudge Cells Not Reportable 01/10/17 04:30 Toxic Granulation Not Reportable 01/10/17 04:30 Toxic Vacuolation Not Reportable 01/10/17 04:30 Dohle Bodies Not Reportable 01/10/17 04:30 Pelger-Huet Anomaly Not Reportable 01/10/17 04:30 [place] Rods Not Reportable 01/10/17 04:30 Platelet Estimate Consistent w auto 01/10/17 04:30 Clumped Platelets Not Reportable 01/10/17 04:30 Plt Clumps, EDTA Not Reportable 01/10/17 04:30 Large Platelets Not Reportable 01/10/17 04:30 Giant Platelets Not Reportable 01/10/17 04:30 Platelet Satelliting Not Reportable 01/10/17 04:30 Plt Morphology Comment Not Reportable 01/10/17 04:30 RBC Morphology Not Reportable 01/10/17 04:30 Dimorphic RBCs Not Reportable 01/10/17 04:30 Polychromasia Not Reportable 01/10/17 04:30 Hypochromasia 1+ 01/10/17 04:30 Poikilocytosis Not Reportable 01/10/17 04:30 Anisocytosis Not Reportable 01/10/17 04:30 Microcytosis Not Reportable 01/10/17 04:30 Macrocytosis Not Reportable 01/10/17 04:30 Spherocytes Not Reportable 01/10/17 04:30 Pappenheimer Bodies Not Reportable 01/10/17 04:30 Sickle Cells Not Reportable 01/10/17 04:30 Target Cells Not Reportable 01/10/17 04:30 Tear Drop Cells Not Reportable 01/10/17 04:30 Ovalocytes Not Reportable 01/10/17 04:30 Helmet Cells Not Reportable 01/10/17 04:30 [place] Bodies Not Reportable 01/10/17 04:30 [place] Rings Not Reportable 01/10/17 04:30 Jessica Cells Not Reportable 01/10/17 04:30 Bite Cells Not Reportable 01/10/17 04:30 Crenated Cell Not Reportable 01/10/17 04:30 Elliptocytes Not Reportable 01/10/17 04:30 Acanthocytes (Spur) Not Reportable 01/10/17 04:30 Rouleaux Not Reportable 01/10/17 04:30 Hemoglobin C Crystals Not Reportable 01/10/17 04:30 Schistocytes Not Reportable 01/10/17 04:30 Malaria parasites Not Reportable 01/10/17 04:30 Kyle Bodies Not Reportable 01/10/17 04:30 Hem Pathologist Commnt No 01/10/17 04:30 PT 14.1 Sec. (12.2-14.9) 01/17/17 04:10 INR 1.04 (0.87-1.13) 01/17/17 04:10 APTT 36.6 Sec. (24.2-36.6) 01/17/17 04:10 POC ABG pH 7.442 (7.35-7.45) 01/31/17 18:55 ABG pH 7.420 pH Units (7.350-7.450) 01/17/17 04:35 POC ABG pCO2 32.8 (35-45) L 01/31/17 18:55 ABG pCO2 34.5 mm Hg 01/17/17 04:35 POC ABG pO2 82 (80-105) 01/31/17 18:55 ABG pO2 160.3 mm Hg (80.0-90.0) H 01/17/17 04:35 POC ABG HCO3 22.4 01/31/17 18:55 ABG HCO3 21.9 mmol/L (20.0-26.0) 01/17/17 04:35 POC ABG Total CO2 23 01/31/17 18:55 POC ABG O2 Sat 97 01/31/17 18:55 ABG O2 Saturation 99.0 % (95.0-99.0) 01/17/17 04:35 ABG O2 Content 11.1 (0.0-44) 01/17/17 04:35 POC ABG Base Excess -2 01/31/17 18:55 ABG Base Excess -2.3 mmol/L (-2.0-3.0) L 01/17/17 04:35 ABG Hemoglobin 7.9 gm/dl (14.0-18.0) L 01/17/17 04:35 ABG Carboxyhemoglobin 1.5 % (0.0-5.0) 01/17/17 04:35 ABG Methemoglobin 0.5 % (0.0-1.5) 01/17/17 04:35 VBG pH 7.284 (7.320-7.420) L 01/09/17 10:16 Oxyhemoglobin 97.1 % (95.0-99.0) 01/17/17 04:35 FiO2 25 % 01/31/17 18:55 Sodium 136 mmol/L (137-145) L 04/28/17 05:10 Potassium 4.5 mmol/L (3.6-5.0) 04/28/17 05:10 Chloride 95.2 mmol/L (98-107) L 04/28/17 05:10 Carbon Dioxide 27 mmol/L (22-30) 04/28/17 05:10 Anion Gap 18 mmol/L 04/28/17 05:10 BUN 42 mg/dL (9-20) H 04/28/17 05:10 Creatinine 0.9 mg/dL (0.8-1.5) 04/28/17 05:10 Estimated GFR > 60 ml/min 04/28/17 05:10 BUN/Creatinine Ratio 47 % 04/28/17 05:10 Glucose 63 mg/dL (75-100) L 04/28/17 05:10 POC Glucose 95 (70-105) 04/28/17 05:20 Lactic Acid 0.80 mmol/L (0.7-2.0) 01/30/17 11:49 Calcium 9.1 mg/dL (8.4-10.2) 04/28/17 05:10 Phosphorus 3.10 mg/dL (2.5-4.5) 03/29/17 04:32 Magnesium 1.90 mg/dL (1.7-2.3) 03/29/17 04:32 Total Bilirubin 0.50 mg/dL (0.1-1.2) 04/28/17 05:10 AST 45 units/L (5-40) H 04/28/17 05:10 ALT 42 units/L (7-56) 04/28/17 05:10 Alkaline Phosphatase 271 units/L (35-129) H 04/28/17 05:10 Ammonia 35.0 umol/L (25-60) 01/09/17 10:16 Total Creatine Kinase 135 units/L (55-170) 01/09/17 10:16 CK-MB (CK-2) 7.1 ng/mL (0.0-4.0) H 01/09/17 10:16 CK-MB (CK-2) Rel Index 5.2 (0-4) H 01/09/17 10:16 Troponin T < 0.010 ng/mL (0.00-0.029) 01/09/17 10:16 NT-Pro-B Natriuret Pep 602.9 pg/mL (0-900) 01/09/17 10:16 Total Protein 8.9 g/dL (6.3-8.2) H 04/28/17 05:10 Albumin 2.5 g/dL (3.9-5) L 04/28/17 05:10 Albumin/Globulin Ratio 0.4 % 04/28/17 05:10 TSH 52.800 mlU/mL (0.270-4.200) H 01/09/17 10:16 Free T4 0.78 ng/dL (0.76-1.46) 01/09/17 10:16 Total Cortisol 54.8 mcg/dL () 01/09/17 16:19 Urine Color Yellow (Yellow) 01/28/17 17:52 Urine Turbidity Clear (Clear) 01/28/17 17:52 Urine pH 6.0 (5.0-7.0) 01/28/17 17:52 Ur Specific [place] 1.016 (1.003-1.030) 01/28/17 17:52 Urine Protein 100 mg/dl mg/dL (Negative) 01/28/17 17:52 Urine Glucose (UA) >=500 mg/dL (Negative) 01/28/17 17:52 Urine Ketones Neg mg/dL (Negative) 01/28/17 17:52 Urine Blood Sm (Negative) 01/28/17 17:52 Urine Nitrite Neg (Negative) 01/28/17 17:52 Urine Bilirubin Neg (Negative) 01/28/17 17:52 Urine Urobilinogen < 2.0 mg/dL (<2.0) 01/28/17 17:52 Ur Leukocyte Esterase Lg (Negative) 01/28/17 17:52 Urine WBC (Auto) > 182.0 /HPF (0.0-6.0) H 01/28/17 17:52 Urine RBC (Auto) 113.0 /HPF (0.0-6.0) 01/28/17 17:52 Urine Bacteria (Auto) 2+ /HPF (Negative) 01/28/17 17:52 Urine WBC Clumps 3+ /HPF 01/28/17 17:52 Urine Mucus Few /HPF 01/14/17 14:07 Urine Yeast (Budding) 3+ /HPF 01/14/17 14:07 Salicylates < 0.3 mg/dL (2.8-20.0) L 01/09/17 10:16 Urine Opiates Screen Presumptive negative 01/09/17 10:23 Urine Methadone Screen Presumptive negative 01/09/17 10:23 Acetaminophen < 15.0 ug/mL (10.0-30.0) 01/09/17 10:16 Ur Barbiturates Screen Presumptive negative 01/09/17 10:23 Ur Phencyclidine Scrn Presumptive negative 01/09/17 10:23 Ur Amphetamines Screen Presumptive negative 01/09/17 10:23 U Benzodiazepines Scrn Presumptive negative 01/09/17 10:23 Urine Cocaine Screen Presumptive negative 01/09/17 10:23 U Marijuana (THC) Screen Presumptive negative 01/09/17 10:23 Drugs of Abuse Note Disclamer 01/09/17 10:23 Plasma/Serum Alcohol < 0.01 gm% (0-0.07) 01/09/17 10:16
--- NOTE | 2017-04-28 10:37 | Progress Note ---
Assessment and Plan 51 y/o male found down, concern for sepsis and now encephalopathic requiring mechanical ventilation. No new recommendations for today. Please see below. 1. continue supportive care 2. 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 I am aware that he is an AND but trach will not fix this problem and is not in my professional opinion the right thing to do for this patient. Most likely he will never be weaned from the vent and will remain in a persistent vegatative state. 3. Overall prognosis continues to be poor. 4. Will not check labs 5. Vitals should be qshift 6. This patient's possibility of awakening from this persistent vegatative is unlikely. The current status is that there has been paper work filed to obtain guardianship so that end of life decisions can be made. Supportive care is reasonable but checking daily labs and doing other invasive things to this patient I do not feel is morally and ethically appropriate. 7. Currently patient does not have IV access and is not requiring any medical therapy. Will not place another one at this time. 8. Per CM, going to court on 05/03/17 for Guardianship. Subjective Date of service: 04/28/17 Principal diagnosis: Acute respiratory failure,encephalopathy Interval history: No acute events. Mental state is unchanged. Has been hypoglycemic the last several days. Long acting insulin held. Still no family or next of kin located. Objective Vital Signs - 12hr 04/27/17 04/28/17 04/28/17 23:25 00:00 00:44 Temperature Pulse Rate 78 79 70 Respiratory 13 13 Rate Blood Pressure 115/74 117/81 115/74 O2 Sat by Pulse 94 94 100 Oximetry 04/28/17 04/28/17 04/28/17 02:00 04:00 04:52 Temperature 100.8 F H Pulse Rate 85 100 H 95 H Respiratory 14 19 Rate Blood Pressure 117/81 107/66 107/66 O2 Sat by Pulse 98 90 96 Oximetry 04/28/17 04/28/17 04/28/17 06:00 07:42 08:00 Temperature 98.7 F Pulse Rate 95 H 89 Respiratory 14 Rate Blood Pressure 107/66 107/66 O2 Sat by Pulse 96 97 Oximetry Constitutional: no acute distress, alert Eyes: non-icteric ENT: oropharynx moist, other (ETT in position) Neck: supple, no JVD Effort: normal Ascultation: Bilateral: clear, diminished breath sounds Cardiovascular: regular rate and rhythm (no mrg) Gastrointestinal: normoactive bowel sounds, soft, non-tender, non-distended Integumentary: normal Extremities: no cyanosis, no edema, pink and warm Neurologic: pupils equal and round, other (not following commands,mild response to pain) Psychiatric: other (unable to obtain) CBC and BMP: 04/28/17 05:10 04/28/17 05:10 ABG, PT/INR, D-dimer: ABG POC ABG pH 7.442 (7.35-7.45) 01/31/17 18:55 ABG pH 7.420 pH Units (7.350-7.450) 01/17/17 04:35 POC ABG pCO2 32.8 (35-45) L 01/31/17 18:55 ABG pCO2 34.5 mm Hg 01/17/17 04:35 POC ABG pO2 82 (80-105) 01/31/17 18:55 ABG pO2 160.3 mm Hg (80.0-90.0) H 01/17/17 04:35 POC ABG HCO3 22.4 01/31/17 18:55 POC ABG Total CO2 23 01/31/17 18:55 POC ABG O2 Sat 97 01/31/17 18:55 ABG O2 Saturation 99.0 % (95.0-99.0) 01/17/17 04:35 PT/INR, D-dimer PT 14.1 Sec. (12.2-14.9) 01/17/17 04:10 INR 1.04 (0.87-1.13) 01/17/17 04:10 Abnormal lab findings: Abnormal Labs 01/09/17 01/09/17 01/09/17 10:16 10:16 10:16 WBC RBC Hgb 9.7 L Hct 28.4 L MCV 76 L MCH 26 L RDW 17.2 H Plt Count 448 H Lymph % (Auto) [place] % (Auto) Eos % (Auto) [place] # Seg Neutrophils % 79.5 H Seg Neuts % (Manual) Lymphocytes % (Manual) Seg Neutrophils # Seg Neutrophils # Man Lymphocytes # (Manual) APTT 39.6 H POC ABG pH ABG pH POC ABG pCO2 POC ABG pO2 ABG pO2 ABG HCO3 ABG Base Excess ABG Hemoglobin VBG pH Oxyhemoglobin Sodium 132 L Potassium Chloride 96.7 L Carbon Dioxide 21 L BUN 34 H Creatinine Glucose POC Glucose Lactic Acid Calcium 8.3 L AST ALT Alkaline Phosphatase 151 H CK-MB (CK-2) 7.1 H CK-MB (CK-2) Rel Index 5.2 H Total Protein Albumin 3.3 L TSH Urine WBC (Auto) Salicylates 01/09/17 01/09/17 01/09/17 10:16 10:16 10:16 WBC RBC Hgb Hct MCV MCH RDW Plt Count Lymph % (Auto) [place] % (Auto) Eos % (Auto) [place] # Seg Neutrophils % Seg Neuts % (Manual) Lymphocytes % (Manual) Seg Neutrophils # Seg Neutrophils # Man Lymphocytes # (Manual) APTT POC ABG pH ABG pH POC ABG pCO2 POC ABG pO2 ABG pO2 ABG HCO3 ABG Base Excess ABG Hemoglobin VBG pH 7.284 L Oxyhemoglobin Sodium Potassium Chloride Carbon Dioxide BUN Creatinine Glucose POC Glucose Lactic Acid Calcium AST ALT Alkaline Phosphatase CK-MB (CK-2) CK-MB (CK-2) Rel Index Total Protein Albumin TSH 52.800 H Urine WBC (Auto) Salicylates < 0.3 L 01/09/17 01/09/17 01/09/17 10:23 11:14 12:49 WBC RBC Hgb Hct MCV MCH RDW Plt Count Lymph % (Auto) [place] % (Auto) Eos % (Auto) [place] # Seg Neutrophils % Seg Neuts % (Manual) Lymphocytes % (Manual) Seg Neutrophils # Seg Neutrophils # Man Lymphocytes # (Manual) APTT POC ABG pH ABG pH POC ABG pCO2 POC ABG pO2 643 H ABG pO2 ABG HCO3 ABG Base Excess ABG Hemoglobin VBG pH Oxyhemoglobin Sodium Potassium Chloride Carbon Dioxide BUN Creatinine Glucose POC Glucose < 40 L Lactic Acid Calcium AST ALT Alkaline Phosphatase CK-MB (CK-2) CK-MB (CK-2) Rel Index Total Protein Albumin TSH Urine WBC (Auto) 61.0 H Salicylates 01/09/17 01/09/17 01/09/17 13:13 14:21 15:09 WBC RBC Hgb Hct MCV MCH RDW Plt Count Lymph % (Auto) [place] % (Auto) Eos % (Auto) [place] # Seg Neutrophils % Seg Neuts % (Manual) Lymphocytes % (Manual) Seg Neutrophils # Seg Neutrophils # Man Lymphocytes # (Manual) APTT POC ABG pH ABG pH POC ABG pCO2 POC ABG pO2 ABG pO2 ABG HCO3 ABG Base Excess ABG Hemoglobin VBG pH Oxyhemoglobin Sodium Potassium Chloride Carbon Dioxide BUN Creatinine Glucose POC Glucose 128 H 65 L 120 H Lactic Acid Calcium AST ALT Alkaline Phosphatase CK-MB (CK-2) CK-MB (CK-2) Rel Index Total Protein Albumin TSH Urine WBC (Auto) Salicylates 01/09/17 01/09/17 01/10/17 16:28 17:14 04:30 WBC 24.1 H RBC 3.38 L Hgb 8.5 L Hct 26.0 L MCV 77 L MCH 25 L RDW 17.9 H Plt Count 474 H Lymph % (Auto) [place] % (Auto) Eos % (Auto) [place] # Seg Neutrophils % Seg Neuts % (Manual) 88.0 H Lymphocytes % (Manual) 4.0 L Seg Neutrophils # Seg Neutrophils # Man 21.2 H Lymphocytes # (Manual) 1.0 L APTT POC ABG pH ABG pH POC ABG pCO2 POC ABG pO2 ABG pO2 ABG HCO3 ABG Base Excess ABG Hemoglobin VBG pH Oxyhemoglobin Sodium Potassium Chloride Carbon Dioxide BUN Creatinine Glucose POC Glucose 44 L 112 H Lactic Acid Calcium AST ALT Alkaline Phosphatase CK-MB (CK-2) CK-MB (CK-2) Rel Index Total Protein Albumin TSH Urine WBC (Auto) Salicylates 01/10/17 01/10/17 01/10/17 04:30 05:41 05:45 WBC RBC Hgb Hct MCV MCH RDW Plt Count Lymph % (Auto) [place] % (Auto) Eos % (Auto) [place] # Seg Neutrophils % Seg Neuts % (Manual) Lymphocytes % (Manual) Seg Neutrophils # Seg Neutrophils # Man Lymphocytes # (Manual) APTT POC ABG pH ABG pH POC ABG pCO2 26.6 L POC ABG pO2 207 H ABG pO2 ABG HCO3 ABG Base Excess ABG Hemoglobin VBG pH Oxyhemoglobin Sodium Potassium Chloride Carbon Dioxide 17 L BUN 27 H Creatinine Glucose POC Glucose 68 L Lactic Acid Calcium 7.5 L AST ALT Alkaline Phosphatase CK-MB (CK-2) CK-MB (CK-2) Rel Index Total Protein Albumin TSH Urine WBC (Auto) Salicylates 01/10/17 01/10/17 01/10/17 07:47 10:50 13:41 WBC RBC Hgb Hct MCV MCH RDW Plt Count Lymph % (Auto) [place] % (Auto) Eos % (Auto) [place] # Seg Neutrophils % Seg Neuts % (Manual) Lymphocytes % (Manual) Seg Neutrophils # Seg Neutrophils # Man Lymphocytes # (Manual) APTT POC ABG pH ABG pH POC ABG pCO2 POC ABG pO2 ABG pO2 ABG HCO3 ABG Base Excess ABG Hemoglobin VBG pH Oxyhemoglobin Sodium Potassium Chloride Carbon Dioxide BUN Creatinine Glucose POC Glucose 148 H 165 H 114 H Lactic Acid Calcium AST ALT Alkaline Phosphatase CK-MB (CK-2) CK-MB (CK-2) Rel Index Total Protein Albumin TSH Urine WBC (Auto) Salicylates 01/10/17 01/10/17 01/10/17 20:20 21:39 23:24 WBC RBC Hgb Hct MCV MCH RDW Plt Count Lymph % (Auto) [place] % (Auto) Eos % (Auto) [place] # Seg Neutrophils % Seg Neuts % (Manual) Lymphocytes % (Manual) Seg Neutrophils # Seg Neutrophils # Man Lymphocytes # (Manual) APTT POC ABG pH ABG pH POC ABG pCO2 POC ABG pO2 ABG pO2 ABG HCO3 ABG Base Excess ABG Hemoglobin VBG pH Oxyhemoglobin Sodium Potassium Chloride Carbon Dioxide BUN Creatinine Glucose POC Glucose 150 H 175 H 155 H Lactic Acid Calcium AST ALT Alkaline Phosphatase CK-MB (CK-2) CK-MB (CK-2) Rel Index Total Protein Albumin TSH Urine WBC (Auto) Salicylates 01/11/17 01/11/17 01/11/17 00:19 04:06 05:20 WBC 15.2 H RBC 3.40 L Hgb 8.9 L Hct 26.3 L MCV 78 L MCH 26 L RDW 18.6 H Plt Count 462 H Lymph % (Auto) 13.2 L [place] % (Auto) Eos % (Auto) [place] # Seg Neutrophils % 80.8 H Seg Neuts % (Manual) Lymphocytes % (Manual) Seg Neutrophils # 12.3 H Seg Neutrophils # Man Lymphocytes # (Manual) APTT POC ABG pH 7.463 H ABG pH POC ABG pCO2 26.2 L POC ABG pO2 185 H ABG pO2 ABG HCO3 ABG Base Excess ABG Hemoglobin VBG pH Oxyhemoglobin Sodium Potassium Chloride Carbon Dioxide BUN Creatinine Glucose POC Glucose 163 H Lactic Acid Calcium AST ALT Alkaline Phosphatase CK-MB (CK-2) CK-MB (CK-2) Rel Index Total Protein Albumin TSH Urine WBC (Auto) Salicylates 01/11/17 01/11/17 01/11/17 05:20 06:21 07:57 WBC RBC Hgb Hct MCV MCH RDW Plt Count Lymph % (Auto) [place] % (Auto) Eos % (Auto) [place] # Seg Neutrophils % Seg Neuts % (Manual) Lymphocytes % (Manual) Seg Neutrophils # Seg Neutrophils # Man Lymphocytes # (Manual) APTT POC ABG pH ABG pH POC ABG pCO2 POC ABG pO2 ABG pO2 ABG HCO3 ABG Base Excess ABG Hemoglobin VBG pH Oxyhemoglobin Sodium Potassium 3.4 L Chloride 111.5 H Carbon Dioxide 17 L BUN Creatinine Glucose 147 H POC Glucose 139 H 188 H Lactic Acid Calcium 8.0 L AST ALT Alkaline Phosphatase CK-MB (CK-2) CK-MB (CK-2) Rel Index Total Protein Albumin TSH Urine WBC (Auto) Salicylates 01/11/17 01/11/17 01/11/17 11:46 16:50 23:15 WBC RBC Hgb Hct MCV MCH RDW Plt Count Lymph % (Auto) [place] % (Auto) Eos % (Auto) [place] # Seg Neutrophils % Seg Neuts % (Manual) Lymphocytes % (Manual) Seg Neutrophils # Seg Neutrophils # Man Lymphocytes # (Manual) APTT POC ABG pH ABG pH POC ABG pCO2 POC ABG pO2 ABG pO2 ABG HCO3 ABG Base Excess ABG Hemoglobin VBG pH Oxyhemoglobin Sodium Potassium Chloride Carbon Dioxide BUN Creatinine Glucose POC Glucose 199 H 235 H 155 H Lactic Acid Calcium AST ALT Alkaline Phosphatase CK-MB (CK-2) CK-MB (CK-2) Rel Index Total Protein Albumin TSH Urine WBC (Auto) Salicylates 01/12/17 01/12/17 01/12/17 05:02 06:56 14:50 WBC RBC Hgb Hct MCV MCH RDW Plt Count Lymph % (Auto) [place] % (Auto) Eos % (Auto) [place] # Seg Neutrophils % Seg Neuts % (Manual) Lymphocytes % (Manual) Seg Neutrophils # Seg Neutrophils # Man Lymphocytes # (Manual) APTT POC ABG pH ABG pH POC ABG pCO2 28.0 L POC ABG pO2 178 H ABG pO2 ABG HCO3 ABG Base Excess ABG Hemoglobin VBG pH Oxyhemoglobin Sodium Potassium Chloride Carbon Dioxide BUN Creatinine Glucose POC Glucose 119 H 164 H Lactic Acid Calcium AST ALT Alkaline Phosphatase CK-MB (CK-2) CK-MB (CK-2) Rel Index Total Protein Albumin TSH Urine WBC (Auto) Salicylates 01/13/17 01/13/17 01/13/17 03:37 03:37 04:26 WBC RBC 3.61 L Hgb 9.3 L Hct 28.0 L MCV 78 L MCH 26 L RDW 18.2 H Plt Count Lymph % (Auto) [place] % (Auto) Eos % (Auto) [place] # Seg Neutrophils % Seg Neuts % (Manual) Lymphocytes % (Manual) Seg Neutrophils # Seg Neutrophils # Man Lymphocytes # (Manual) APTT POC ABG pH 7.485 H ABG pH POC ABG pCO2 25.4 L POC ABG pO2 73 L ABG pO2 ABG HCO3 ABG Base Excess ABG Hemoglobin VBG pH Oxyhemoglobin Sodium Potassium Chloride 112.4 H Carbon Dioxide 19 L BUN Creatinine Glucose 118 H POC Glucose Lactic Acid Calcium 8.0 L AST ALT Alkaline Phosphatase CK-MB (CK-2) CK-MB (CK-2) Rel Index Total Protein Albumin TSH Urine WBC (Auto) Salicylates 01/13/17 01/13/17 01/13/17 06:15 11:50 17:31 WBC RBC Hgb Hct MCV MCH RDW Plt Count Lymph % (Auto) [place] % (Auto) Eos % (Auto) [place] # Seg Neutrophils % Seg Neuts % (Manual) Lymphocytes % (Manual) Seg Neutrophils # Seg Neutrophils # Man Lymphocytes # (Manual) APTT POC ABG pH ABG pH POC ABG pCO2 POC ABG pO2 ABG pO2 ABG HCO3 ABG Base Excess ABG Hemoglobin VBG pH Oxyhemoglobin Sodium Potassium Chloride Carbon Dioxide BUN Creatinine Glucose POC Glucose 116 H 171 H 203 H Lactic Acid Calcium AST ALT Alkaline Phosphatase CK-MB (CK-2) CK-MB (CK-2) Rel Index Total Protein Albumin TSH Urine WBC (Auto) Salicylates 01/14/17 01/14/17 01/14/17 00:02 04:50 04:50 WBC RBC 3.32 L Hgb 8.5 L Hct 26.1 L MCV 79 L MCH 26 L RDW 18.2 H Plt Count Lymph % (Auto) [place] % (Auto) 9.0 H Eos % (Auto) [place] # Seg Neutrophils % Seg Neuts % (Manual) Lymphocytes % (Manual) Seg Neutrophils # Seg Neutrophils # Man Lymphocytes # (Manual) APTT POC ABG pH ABG pH POC ABG pCO2 POC ABG pO2 ABG pO2 ABG HCO3 ABG Base Excess ABG Hemoglobin VBG pH Oxyhemoglobin Sodium Potassium Chloride 112.5 H Carbon Dioxide BUN Creatinine Glucose 149 H POC Glucose 157 H Lactic Acid Calcium 8.1 L AST ALT Alkaline Phosphatase CK-MB (CK-2) CK-MB (CK-2) Rel Index Total Protein Albumin TSH Urine WBC (Auto) Salicylates 01/14/17 01/14/17 01/14/17 05:10 11:27 14:07 WBC RBC Hgb Hct MCV MCH RDW Plt Count Lymph % (Auto) [place] % (Auto) Eos % (Auto) [place] # Seg Neutrophils % Seg Neuts % (Manual) Lymphocytes % (Manual) Seg Neutrophils # Seg Neutrophils # Man Lymphocytes # (Manual) APTT POC ABG pH ABG pH POC ABG pCO2 POC ABG pO2 ABG pO2 ABG HCO3 ABG Base Excess ABG Hemoglobin VBG pH Oxyhemoglobin Sodium Potassium Chloride Carbon Dioxide BUN Creatinine Glucose POC Glucose 176 H 147 H Lactic Acid Calcium AST ALT Alkaline Phosphatase CK-MB (CK-2) CK-MB (CK-2) Rel Index Total Protein Albumin TSH Urine WBC (Auto) 53.0 H Salicylates 01/14/17 01/15/17 01/15/17 16:52 00:04 05:26 WBC RBC Hgb Hct MCV MCH RDW Plt Count Lymph % (Auto) [place] % (Auto) Eos % (Auto) [place] # Seg Neutrophils % Seg Neuts % (Manual) Lymphocytes % (Manual) Seg Neutrophils # Seg Neutrophils # Man Lymphocytes # (Manual) APTT POC ABG pH ABG pH POC ABG pCO2 POC ABG pO2 ABG pO2 ABG HCO3 ABG Base Excess ABG Hemoglobin VBG pH Oxyhemoglobin Sodium Potassium Chloride Carbon Dioxide BUN Creatinine Glucose POC Glucose 131 H 193 H 215 H Lactic Acid Calcium AST ALT Alkaline Phosphatase CK-MB (CK-2) CK-MB (CK-2) Rel Index Total Protein Albumin TSH Urine WBC (Auto) Salicylates 01/15/17 01/15/17 01/15/17 11:49 17:47 21:33 WBC RBC Hgb Hct MCV MCH RDW Plt Count Lymph % (Auto) [place] % (Auto) Eos % (Auto) [place] # Seg Neutrophils % Seg Neuts % (Manual) Lymphocytes % (Manual) Seg Neutrophils # Seg Neutrophils # Man Lymphocytes # (Manual) APTT POC ABG pH ABG pH POC ABG pCO2 POC ABG pO2 ABG pO2 ABG HCO3 ABG Base Excess ABG Hemoglobin VBG pH Oxyhemoglobin Sodium Potassium Chloride Carbon Dioxide BUN Creatinine Glucose POC Glucose 121 H 211 H 275 H Lactic Acid Calcium AST ALT Alkaline Phosphatase CK-MB (CK-2) CK-MB (CK-2) Rel Index Total Protein Albumin TSH Urine WBC (Auto) Salicylates 01/16/17 01/16/17 01/16/17 04:30 05:28 13:45 WBC RBC Hgb Hct MCV MCH RDW Plt Count Lymph % (Auto) [place] % (Auto) Eos % (Auto) [place] # Seg Neutrophils % Seg Neuts % (Manual) Lymphocytes % (Manual) Seg Neutrophils # Seg Neutrophils # Man Lymphocytes # (Manual) APTT POC ABG pH ABG pH 7.457 H POC ABG pCO2 POC ABG pO2 ABG pO2 55.1 L ABG HCO3 19.4 L ABG Base Excess -4.0 L ABG Hemoglobin 6.8 L VBG pH Oxyhemoglobin 94.9 L Sodium Potassium Chloride Carbon Dioxide BUN Creatinine Glucose POC Glucose 271 H 236 H Lactic Acid Calcium AST ALT Alkaline Phosphatase CK-MB (CK-2) CK-MB (CK-2) Rel Index Total Protein Albumin TSH Urine WBC (Auto) Salicylates 01/16/17 01/17/17 01/17/17 21:39 04:10 04:10 WBC 4.4 L RBC 2.98 L Hgb 7.7 L Hct 23.3 L MCV 78 L MCH 26 L RDW 18.1 H Plt Count Lymph % (Auto) [place] % (Auto) Eos % (Auto) [place] # Seg Neutrophils % Seg Neuts % (Manual) Lymphocytes % (Manual) Seg Neutrophils # Seg Neutrophils # Man Lymphocytes # (Manual) APTT POC ABG pH ABG pH POC ABG pCO2 POC ABG pO2 ABG pO2 ABG HCO3 ABG Base Excess ABG Hemoglobin VBG pH Oxyhemoglobin Sodium Potassium 3.3 L Chloride 108.7 H Carbon Dioxide 20 L BUN 8 L Creatinine Glucose 202 H POC Glucose 258 H Lactic Acid Calcium 7.6 L AST ALT Alkaline Phosphatase CK-MB (CK-2) CK-MB (CK-2) Rel Index Total Protein Albumin TSH Urine WBC (Auto) Salicylates 01/17/17 01/17/17 01/17/17 04:35 12:23 16:01 WBC RBC Hgb Hct MCV MCH RDW Plt Count Lymph % (Auto) [place] % (Auto) Eos % (Auto) [place] # Seg Neutrophils % Seg Neuts % (Manual) Lymphocytes % (Manual) Seg Neutrophils # Seg Neutrophils # Man Lymphocytes # (Manual) APTT POC ABG pH ABG pH POC ABG pCO2 POC ABG pO2 ABG pO2 160.3 H ABG HCO3 ABG Base Excess -2.3 L ABG Hemoglobin 7.9 L VBG pH Oxyhemoglobin Sodium Potassium Chloride Carbon Dioxide BUN Creatinine Glucose POC Glucose 321 H 239 H Lactic Acid Calcium AST ALT Alkaline Phosphatase CK-MB (CK-2) CK-MB (CK-2) Rel Index Total Protein Albumin TSH Urine WBC (Auto) Salicylates 01/18/17 01/18/17 01/18/17 05:07 12:09 17:54 WBC RBC Hgb Hct MCV MCH RDW Plt Count Lymph % (Auto) [place] % (Auto) Eos % (Auto) [place] # Seg Neutrophils % Seg Neuts % (Manual) Lymphocytes % (Manual) Seg Neutrophils # Seg Neutrophils # Man Lymphocytes # (Manual) APTT POC ABG pH ABG pH POC ABG pCO2 POC ABG pO2 ABG pO2 ABG HCO3 ABG Base Excess ABG Hemoglobin VBG pH Oxyhemoglobin Sodium Potassium Chloride Carbon Dioxide BUN Creatinine Glucose POC Glucose 155 H 203 H 132 H Lactic Acid Calcium AST ALT Alkaline Phosphatase CK-MB (CK-2) CK-MB (CK-2) Rel Index Total Protein Albumin TSH Urine WBC (Auto) Salicylates 01/18/17 01/19/17 01/19/17 23:43 04:28 12:11 WBC RBC Hgb Hct MCV MCH RDW Plt Count Lymph % (Auto) [place] % (Auto) Eos % (Auto) [place] # Seg Neutrophils % Seg Neuts % (Manual) Lymphocytes % (Manual) Seg Neutrophils # Seg Neutrophils # Man Lymphocytes # (Manual) APTT POC ABG pH ABG pH POC ABG pCO2 POC ABG pO2 ABG pO2 ABG HCO3 ABG Base Excess ABG Hemoglobin VBG pH Oxyhemoglobin Sodium Potassium Chloride Carbon Dioxide BUN Creatinine Glucose POC Glucose 125 H 182 H 153 H Lactic Acid Calcium AST ALT Alkaline Phosphatase CK-MB (CK-2) CK-MB (CK-2) Rel Index Total Protein Albumin TSH Urine WBC (Auto) Salicylates 01/19/17 01/20/17 01/20/17 17:23 00:12 05:44 WBC RBC Hgb Hct MCV MCH RDW Plt Count Lymph % (Auto) [place] % (Auto) Eos % (Auto) [place] # Seg Neutrophils % Seg Neuts % (Manual) Lymphocytes % (Manual) Seg Neutrophils # Seg Neutrophils # Man Lymphocytes # (Manual) APTT POC ABG pH ABG pH POC ABG pCO2 POC ABG pO2 ABG pO2 ABG HCO3 ABG Base Excess ABG Hemoglobin VBG pH Oxyhemoglobin Sodium Potassium Chloride Carbon Dioxide BUN Creatinine Glucose POC Glucose 66 L 139 H 176 H Lactic Acid Calcium AST ALT Alkaline Phosphatase CK-MB (CK-2) CK-MB (CK-2) Rel Index Total Protein Albumin TSH Urine WBC (Auto) Salicylates 01/20/17 01/20/17 01/20/17 11:48 17:42 23:43 WBC RBC Hgb Hct MCV MCH RDW Plt Count Lymph % (Auto) [place] % (Auto) Eos % (Auto) [place] # Seg Neutrophils % Seg Neuts % (Manual) Lymphocytes % (Manual) Seg Neutrophils # Seg Neutrophils # Man Lymphocytes # (Manual) APTT POC ABG pH ABG pH POC ABG pCO2 POC ABG pO2 ABG pO2 ABG HCO3 ABG Base Excess ABG Hemoglobin VBG pH Oxyhemoglobin Sodium Potassium Chloride Carbon Dioxide BUN Creatinine Glucose POC Glucose 218 H 132 H 178 H Lactic Acid Calcium AST ALT Alkaline Phosphatase CK-MB (CK-2) CK-MB (CK-2) Rel Index Total Protein Albumin TSH Urine WBC (Auto) Salicylates 01/21/17 01/21/17 01/21/17 05:34 11:17 23:37 WBC RBC Hgb Hct MCV MCH RDW Plt Count Lymph % (Auto) [place] % (Auto) Eos % (Auto) [place] # Seg Neutrophils % Seg Neuts % (Manual) Lymphocytes % (Manual) Seg Neutrophils # Seg Neutrophils # Man Lymphocytes # (Manual) APTT POC ABG pH ABG pH POC ABG pCO2 POC ABG pO2 ABG pO2 ABG HCO3 ABG Base Excess ABG Hemoglobin VBG pH Oxyhemoglobin Sodium Potassium Chloride Carbon Dioxide BUN Creatinine Glucose POC Glucose 106 H 213 H 140 H Lactic Acid Calcium AST ALT Alkaline Phosphatase CK-MB (CK-2) CK-MB (CK-2) Rel Index Total Protein Albumin TSH Urine WBC (Auto) Salicylates 01/22/17 01/22/17 01/22/17 04:00 04:00 04:58 WBC RBC 3.26 L Hgb 8.3 L Hct 25.5 L MCV 78 L MCH 25 L RDW 17.9 H Plt Count Lymph % (Auto) [place] % (Auto) 7.9 H Eos % (Auto) 6.2 H [place] # Seg Neutrophils % Seg Neuts % (Manual) Lymphocytes % (Manual) Seg Neutrophils # Seg Neutrophils # Man Lymphocytes # (Manual) APTT POC ABG pH ABG pH POC ABG pCO2 POC ABG pO2 ABG pO2 ABG HCO3 ABG Base Excess ABG Hemoglobin VBG pH Oxyhemoglobin Sodium Potassium Chloride 95.5 L Carbon Dioxide 31 H D BUN Creatinine Glucose 134 H POC Glucose 146 H Lactic Acid Calcium AST 44 H ALT Alkaline Phosphatase 379 H CK-MB (CK-2) CK-MB (CK-2) Rel Index Total Protein Albumin 2.7 L TSH Urine WBC (Auto) Salicylates 01/22/17 01/22/17 01/22/17 12:12 18:12 23:39 WBC RBC Hgb Hct MCV MCH RDW Plt Count Lymph % (Auto) [place] % (Auto) Eos % (Auto) [place] # Seg Neutrophils % Seg Neuts % (Manual) Lymphocytes % (Manual) Seg Neutrophils # Seg Neutrophils # Man Lymphocytes # (Manual) APTT POC ABG pH ABG pH POC ABG pCO2 POC ABG pO2 ABG pO2 ABG HCO3 ABG Base Excess ABG Hemoglobin VBG pH Oxyhemoglobin Sodium Potassium Chloride Carbon Dioxide BUN Creatinine Glucose POC Glucose 255 H 182 H 134 H Lactic Acid Calcium AST ALT Alkaline Phosphatase CK-MB (CK-2) CK-MB (CK-2) Rel Index Total Protein Albumin TSH Urine WBC (Auto) Salicylates 01/23/17 01/23/17 01/23/17 04:43 12:12 17:36 WBC RBC Hgb Hct MCV MCH RDW Plt Count Lymph % (Auto) [place] % (Auto) Eos % (Auto) [place] # Seg Neutrophils % Seg Neuts % (Manual) Lymphocytes % (Manual) Seg Neutrophils # Seg Neutrophils # Man Lymphocytes # (Manual) APTT POC ABG pH ABG pH POC ABG pCO2 POC ABG pO2 ABG pO2 ABG HCO3 ABG Base Excess ABG Hemoglobin VBG pH Oxyhemoglobin Sodium Potassium Chloride Carbon Dioxide BUN Creatinine Glucose POC Glucose 218 H 128 H 156 H Lactic Acid Calcium AST ALT Alkaline Phosphatase CK-MB (CK-2) CK-MB (CK-2) Rel Index Total Protein Albumin TSH Urine WBC (Auto) Salicylates 01/24/17 01/24/17 01/24/17 00:08 05:16 11:40 WBC RBC Hgb Hct MCV MCH RDW Plt Count Lymph % (Auto) [place] % (Auto) Eos % (Auto) [place] # Seg Neutrophils % Seg Neuts % (Manual) Lymphocytes % (Manual) Seg Neutrophils # Seg Neutrophils # Man Lymphocytes # (Manual) APTT POC ABG pH ABG pH POC ABG pCO2 POC ABG pO2 ABG pO2 ABG HCO3 ABG Base Excess ABG Hemoglobin VBG pH Oxyhemoglobin Sodium Potassium Chloride Carbon Dioxide BUN Creatinine Glucose POC Glucose 129 H 169 H 187 H Lactic Acid Calcium AST ALT Alkaline Phosphatase CK-MB (CK-2) CK-MB (CK-2) Rel Index Total Protein Albumin TSH Urine WBC (Auto) Salicylates 01/24/17 01/24/17 01/25/17 17:43 23:23 04:56 WBC RBC Hgb Hct MCV MCH RDW Plt Count Lymph % (Auto) [place] % (Auto) Eos % (Auto) [place] # Seg Neutrophils % Seg Neuts % (Manual) Lymphocytes % (Manual) Seg Neutrophils # Seg Neutrophils # Man Lymphocytes # (Manual) APTT POC ABG pH ABG pH POC ABG pCO2 POC ABG pO2 ABG pO2 ABG HCO3 ABG Base Excess ABG Hemoglobin VBG pH Oxyhemoglobin Sodium Potassium Chloride Carbon Dioxide BUN Creatinine Glucose POC Glucose 215 H 222 H 210 H Lactic Acid Calcium AST ALT Alkaline Phosphatase CK-MB (CK-2) CK-MB (CK-2) Rel Index Total Protein Albumin TSH Urine WBC (Auto) Salicylates 01/25/17 01/25/17 01/26/17 11:52 17:37 00:02 WBC RBC Hgb Hct MCV MCH RDW Plt Count Lymph % (Auto) [place] % (Auto) Eos % (Auto) [place] # Seg Neutrophils % Seg Neuts % (Manual) Lymphocytes % (Manual) Seg Neutrophils # Seg Neutrophils # Man Lymphocytes # (Manual) APTT POC ABG pH ABG pH POC ABG pCO2 POC ABG pO2 ABG pO2 ABG HCO3 ABG Base Excess ABG Hemoglobin VBG pH Oxyhemoglobin Sodium Potassium Chloride Carbon Dioxide BUN Creatinine Glucose POC Glucose 284 H 218 H 192 H Lactic Acid Calcium AST ALT Alkaline Phosphatase CK-MB (CK-2) CK-MB (CK-2) Rel Index Total Protein Albumin TSH Urine WBC (Auto) Salicylates 01/26/17 01/26/17 01/26/17 05:33 12:17 17:50 WBC RBC Hgb Hct MCV MCH RDW Plt Count Lymph % (Auto) [place] % (Auto) Eos % (Auto) [place] # Seg Neutrophils % Seg Neuts % (Manual) Lymphocytes % (Manual) Seg Neutrophils # Seg Neutrophils # Man Lymphocytes # (Manual) APTT POC ABG pH ABG pH POC ABG pCO2 POC ABG pO2 ABG pO2 ABG HCO3 ABG Base Excess ABG Hemoglobin VBG pH Oxyhemoglobin Sodium Potassium Chloride Carbon Dioxide BUN Creatinine Glucose POC Glucose 199 H 227 H 229 H Lactic Acid Calcium AST ALT Alkaline Phosphatase CK-MB (CK-2) CK-MB (CK-2) Rel Index Total Protein Albumin TSH Urine WBC (Auto) Salicylates 01/26/17 01/27/17 01/27/17 23:57 05:31 11:42 WBC RBC Hgb Hct MCV MCH RDW Plt Count Lymph % (Auto) [place] % (Auto) Eos % (Auto) [place] # Seg Neutrophils % Seg Neuts % (Manual) Lymphocytes % (Manual) Seg Neutrophils # Seg Neutrophils # Man Lymphocytes # (Manual) APTT POC ABG pH ABG pH POC ABG pCO2 POC ABG pO2 ABG pO2 ABG HCO3 ABG Base Excess ABG Hemoglobin VBG pH Oxyhemoglobin Sodium Potassium Chloride Carbon Dioxide BUN Creatinine Glucose POC Glucose 186 H 285 H 260 H Lactic Acid Calcium AST ALT Alkaline Phosphatase CK-MB (CK-2) CK-MB (CK-2) Rel Index Total Protein Albumin TSH Urine WBC (Auto) Salicylates 01/27/17 01/27/17 01/27/17 17:47 23:58 Unknown WBC 12.1 H RBC 3.28 L Hgb 8.5 L Hct 25.5 L MCV 78 L MCH 26 L RDW 16.8 H Plt Count 601 H Lymph % (Auto) [place] % (Auto) Eos % (Auto) [place] # Seg Neutrophils % Seg Neuts % (Manual) Lymphocytes % (Manual) Seg Neutrophils # Seg Neutrophils # Man Lymphocytes # (Manual) APTT POC ABG pH ABG pH POC ABG pCO2 POC ABG pO2 ABG pO2 ABG HCO3 ABG Base Excess ABG Hemoglobin VBG pH Oxyhemoglobin Sodium Potassium Chloride Carbon Dioxide BUN Creatinine Glucose POC Glucose 329 H 225 H Lactic Acid Calcium AST ALT Alkaline Phosphatase CK-MB (CK-2) CK-MB (CK-2) Rel Index Total Protein Albumin TSH Urine WBC (Auto) Salicylates 01/27/17 01/28/17 01/28/17 Unknown 03:44 03:44 WBC RBC 3.14 L Hgb 8.2 L Hct 24.1 L MCV 77 L MCH 26 L RDW 16.9 H Plt Count 567 H Lymph % (Auto) [place] % (Auto) Eos % (Auto) [place] # Seg Neutrophils % Seg Neuts % (Manual) Lymphocytes % (Manual) Seg Neutrophils # Seg Neutrophils # Man Lymphocytes # (Manual) APTT POC ABG pH ABG pH POC ABG pCO2 POC ABG pO2 ABG pO2 ABG HCO3 ABG Base Excess ABG Hemoglobin VBG pH Oxyhemoglobin Sodium 128 L Potassium 5.4 H Chloride 87.5 L Carbon Dioxide BUN 44 H 42 H Creatinine Glucose 250 H 128 H POC Glucose Lactic Acid Calcium AST ALT Alkaline Phosphatase CK-MB (CK-2) CK-MB (CK-2) Rel Index Total Protein Albumin TSH Urine WBC (Auto) Salicylates 01/28/17 01/28/17 01/28/17 11:43 16:47 17:52 WBC RBC Hgb Hct MCV MCH RDW Plt Count Lymph % (Auto) [place] % (Auto) Eos % (Auto) [place] # Seg Neutrophils % Seg Neuts % (Manual) Lymphocytes % (Manual) Seg Neutrophils # Seg Neutrophils # Man Lymphocytes # (Manual) APTT POC ABG pH ABG pH POC ABG pCO2 POC ABG pO2 ABG pO2 ABG HCO3 ABG Base Excess ABG Hemoglobin VBG pH Oxyhemoglobin Sodium Potassium Chloride Carbon Dioxide BUN Creatinine Glucose POC Glucose 351 H 249 H Lactic Acid Calcium AST ALT Alkaline Phosphatase CK-MB (CK-2) CK-MB (CK-2) Rel Index Total Protein Albumin TSH Urine WBC (Auto) > 182.0 H Salicylates 01/29/17 01/29/17 01/29/17 05:25 05:25 09:32 WBC 13.6 H RBC 3.25 L Hgb 8.3 L Hct 25.1 L MCV 77 L MCH 26 L RDW 16.8 H Plt Count 514 H Lymph % (Auto) [place] % (Auto) Eos % (Auto) [place] # Seg Neutrophils % Seg Neuts % (Manual) Lymphocytes % (Manual) Seg Neutrophils # Seg Neutrophils # Man Lymphocytes # (Manual) APTT POC ABG pH ABG pH POC ABG pCO2 POC ABG pO2 ABG pO2 ABG HCO3 ABG Base Excess ABG Hemoglobin VBG pH Oxyhemoglobin Sodium Potassium Chloride 97.8 L Carbon Dioxide BUN 34 H Creatinine Glucose 222 H POC Glucose Lactic Acid 2.50 H* Calcium AST ALT Alkaline Phosphatase CK-MB (CK-2) CK-MB (CK-2) Rel Index Total Protein Albumin TSH Urine WBC (Auto) Salicylates 01/29/17 01/29/17 01/29/17 11:56 18:11 23:55 WBC RBC Hgb Hct MCV MCH RDW Plt Count Lymph % (Auto) [place] % (Auto) Eos % (Auto) [place] # Seg Neutrophils % Seg Neuts % (Manual) Lymphocytes % (Manual) Seg Neutrophils # Seg Neutrophils # Man Lymphocytes # (Manual) APTT POC ABG pH ABG pH POC ABG pCO2 POC ABG pO2 ABG pO2 ABG HCO3 ABG Base Excess ABG Hemoglobin VBG pH Oxyhemoglobin Sodium Potassium Chloride Carbon Dioxide BUN Creatinine Glucose POC Glucose 261 H 215 H 176 H Lactic Acid Calcium AST ALT Alkaline Phosphatase CK-MB (CK-2) CK-MB (CK-2) Rel Index Total Protein Albumin TSH Urine WBC (Auto) Salicylates 01/30/17 01/30/17 01/30/17 05:31 05:31 05:34 WBC 15.2 H RBC 3.09 L Hgb 7.9 L Hct 23.9 L MCV 77 L MCH 26 L RDW 16.9 H Plt Count 569 H Lymph % (Auto) [place] % (Auto) Eos % (Auto) [place] # Seg Neutrophils % Seg Neuts % (Manual) Lymphocytes % (Manual) Seg Neutrophils # Seg Neutrophils # Man Lymphocytes # (Manual) APTT POC ABG pH ABG pH POC ABG pCO2 POC ABG pO2 ABG pO2 ABG HCO3 ABG Base Excess ABG Hemoglobin VBG pH Oxyhemoglobin Sodium Potassium Chloride Carbon Dioxide BUN 24 H Creatinine Glucose 235 H POC Glucose 243 H Lactic Acid Calcium AST ALT Alkaline Phosphatase CK-MB (CK-2) CK-MB (CK-2) Rel Index Total Protein Albumin TSH Urine WBC (Auto) Salicylates 01/30/17 01/30/17 01/30/17 11:38 17:58 23:29 WBC RBC Hgb Hct MCV MCH RDW Plt Count Lymph % (Auto) [place] % (Auto) Eos % (Auto) [place] # Seg Neutrophils % Seg Neuts % (Manual) Lymphocytes % (Manual) Seg Neutrophils # Seg Neutrophils # Man Lymphocytes # (Manual) APTT POC ABG pH ABG pH POC ABG pCO2 POC ABG pO2 ABG pO2 ABG HCO3 ABG Base Excess ABG Hemoglobin VBG pH Oxyhemoglobin Sodium Potassium Chloride Carbon Dioxide BUN Creatinine Glucose POC Glucose 298 H 208 H 245 H Lactic Acid Calcium AST ALT Alkaline Phosphatase CK-MB (CK-2) CK-MB (CK-2) Rel Index Total Protein Albumin TSH Urine WBC (Auto) Salicylates 01/31/17 01/31/17 01/31/17 04:39 04:39 05:57 WBC 11.4 H RBC 3.22 L Hgb 8.2 L Hct 24.9 L MCV 78 L MCH 25 L RDW 17.2 H Plt Count 576 H Lymph % (Auto) [place] % (Auto) Eos % (Auto) [place] # Seg Neutrophils % Seg Neuts % (Manual) Lymphocytes % (Manual) Seg Neutrophils # Seg Neutrophils # Man Lymphocytes # (Manual) APTT POC ABG pH ABG pH POC ABG pCO2 POC ABG pO2 ABG pO2 ABG HCO3 ABG Base Excess ABG Hemoglobin VBG pH Oxyhemoglobin Sodium Potassium Chloride Carbon Dioxide BUN Creatinine 0.7 L Glucose 223 H POC Glucose 264 H Lactic Acid Calcium AST ALT Alkaline Phosphatase CK-MB (CK-2) CK-MB (CK-2) Rel Index Total Protein Albumin TSH Urine WBC (Auto) Salicylates 01/31/17 01/31/17 01/31/17 12:23 17:41 18:55 WBC RBC Hgb Hct MCV MCH RDW Plt Count Lymph % (Auto) [place] % (Auto) Eos % (Auto) [place] # Seg Neutrophils % Seg Neuts % (Manual) Lymphocytes % (Manual) Seg Neutrophils # Seg Neutrophils # Man Lymphocytes # (Manual) APTT POC ABG pH ABG pH POC ABG pCO2 32.8 L POC ABG pO2 ABG pO2 ABG HCO3 ABG Base Excess ABG Hemoglobin VBG pH Oxyhemoglobin Sodium Potassium Chloride Carbon Dioxide BUN Creatinine Glucose POC Glucose 252 H 208 H Lactic Acid Calcium AST ALT Alkaline Phosphatase CK-MB (CK-2) CK-MB (CK-2) Rel Index Total Protein Albumin TSH Urine WBC (Auto) Salicylates 01/31/17 02/01/17 02/01/17 22:59 03:38 03:38 WBC RBC 2.81 L Hgb 7.4 L Hct 22.1 L MCV 79 L MCH 27 L RDW 17.0 H Plt Count 540 H Lymph % (Auto) [place] % (Auto) Eos % (Auto) [place] # Seg Neutrophils % Seg Neuts % (Manual) Lymphocytes % (Manual) Seg Neutrophils # Seg Neutrophils # Man Lymphocytes # (Manual) APTT POC ABG pH ABG pH POC ABG pCO2 POC ABG pO2 ABG pO2 ABG HCO3 ABG Base Excess ABG Hemoglobin VBG pH Oxyhemoglobin Sodium Potassium Chloride Carbon Dioxide 21 L BUN Creatinine 0.7 L Glucose POC Glucose 40 L Lactic Acid Calcium AST ALT Alkaline Phosphatase CK-MB (CK-2) CK-MB (CK-2) Rel Index Total Protein Albumin TSH Urine WBC (Auto) Salicylates 02/01/17 02/01/17 02/01/17 05:17 12:19 16:44 WBC RBC Hgb Hct MCV MCH RDW Plt Count Lymph % (Auto) [place] % (Auto) Eos % (Auto) [place] # Seg Neutrophils % Seg Neuts % (Manual) Lymphocytes % (Manual) Seg Neutrophils # Seg Neutrophils # Man Lymphocytes # (Manual) APTT POC ABG pH ABG pH POC ABG pCO2 POC ABG pO2 ABG pO2 ABG HCO3 ABG Base Excess ABG Hemoglobin VBG pH Oxyhemoglobin Sodium Potassium Chloride Carbon Dioxide BUN Creatinine Glucose POC Glucose 140 H 213 H 172 H Lactic Acid Calcium AST ALT Alkaline Phosphatase CK-MB (CK-2) CK-MB (CK-2) Rel Index Total Protein Albumin TSH Urine WBC (Auto) Salicylates 02/01/17 02/02/17 02/02/17 23:59 05:14 11:24 WBC RBC Hgb Hct MCV MCH RDW Plt Count Lymph % (Auto) [place] % (Auto) Eos % (Auto) [place] # Seg Neutrophils % Seg Neuts % (Manual) Lymphocytes % (Manual) Seg Neutrophils # Seg Neutrophils # Man Lymphocytes # (Manual) APTT POC ABG pH ABG pH POC ABG pCO2 POC ABG pO2 ABG pO2 ABG HCO3 ABG Base Excess ABG Hemoglobin VBG pH Oxyhemoglobin Sodium Potassium Chloride Carbon Dioxide BUN Creatinine Glucose POC Glucose 181 H 194 H 209 H Lactic Acid Calcium AST ALT Alkaline Phosphatase CK-MB (CK-2) CK-MB (CK-2) Rel Index Total Protein Albumin TSH Urine WBC (Auto) Salicylates 02/02/17 02/02/17 02/02/17 11:46 11:46 17:47 WBC RBC 2.94 L Hgb 7.5 L Hct 23.0 L MCV 78 L MCH 25 L RDW 16.9 H Plt Count 520 H Lymph % (Auto) [place] % (Auto) Eos % (Auto) [place] # Seg Neutrophils % Seg Neuts % (Manual) Lymphocytes % (Manual) Seg Neutrophils # Seg Neutrophils # Man Lymphocytes # (Manual) APTT POC ABG pH ABG pH POC ABG pCO2 POC ABG pO2 ABG pO2 ABG HCO3 ABG Base Excess ABG Hemoglobin VBG pH Oxyhemoglobin Sodium Potassium Chloride Carbon Dioxide BUN Creatinine 0.6 L Glucose 189 H POC Glucose 147 H Lactic Acid Calcium 8.1 L AST ALT Alkaline Phosphatase CK-MB (CK-2) CK-MB (CK-2) Rel Index Total Protein Albumin TSH Urine WBC (Auto) Salicylates 02/02/17 02/03/17 02/03/17 23:32 05:53 11:19 WBC RBC Hgb Hct MCV MCH RDW Plt Count Lymph % (Auto) [place] % (Auto) Eos % (Auto) [place] # Seg Neutrophils % Seg Neuts % (Manual) Lymphocytes % (Manual) Seg Neutrophils # Seg Neutrophils # Man Lymphocytes # (Manual) APTT POC ABG pH ABG pH POC ABG pCO2 POC ABG pO2 ABG pO2 ABG HCO3 ABG Base Excess ABG Hemoglobin VBG pH Oxyhemoglobin Sodium Potassium Chloride Carbon Dioxide BUN Creatinine Glucose POC Glucose 176 H 224 H 228 H Lactic Acid Calcium AST ALT Alkaline Phosphatase CK-MB (CK-2) CK-MB (CK-2) Rel Index Total Protein Albumin TSH Urine WBC (Auto) Salicylates 02/03/17 02/03/17 02/04/17 16:59 23:38 05:45 WBC RBC Hgb Hct MCV MCH RDW Plt Count Lymph % (Auto) [place] % (Auto) Eos % (Auto) [place] # Seg Neutrophils % Seg Neuts % (Manual) Lymphocytes % (Manual) Seg Neutrophils # Seg Neutrophils # Man Lymphocytes # (Manual) APTT POC ABG pH ABG pH POC ABG pCO2 POC ABG pO2 ABG pO2 ABG HCO3 ABG Base Excess ABG Hemoglobin VBG pH Oxyhemoglobin Sodium Potassium Chloride Carbon Dioxide BUN Creatinine Glucose POC Glucose 189 H 191 H 251 H Lactic Acid Calcium AST ALT Alkaline Phosphatase CK-MB (CK-2) CK-MB (CK-2) Rel Index Total Protein Albumin TSH Urine WBC (Auto) Salicylates 02/04/17 02/04/17 02/05/17 11:20 17:20 00:17 WBC RBC Hgb Hct MCV MCH RDW Plt Count Lymph % (Auto) [place] % (Auto) Eos % (Auto) [place] # Seg Neutrophils % Seg Neuts % (Manual) Lymphocytes % (Manual) Seg Neutrophils # Seg Neutrophils # Man Lymphocytes # (Manual) APTT POC ABG pH ABG pH POC ABG pCO2 POC ABG pO2 ABG pO2 ABG HCO3 ABG Base Excess ABG Hemoglobin VBG pH Oxyhemoglobin Sodium Potassium Chloride Carbon Dioxide BUN Creatinine Glucose POC Glucose 243 H 163 H 200 H Lactic Acid Calcium AST ALT Alkaline Phosphatase CK-MB (CK-2) CK-MB (CK-2) Rel Index Total Protein Albumin TSH Urine WBC (Auto) Salicylates 02/05/17 02/05/17 02/05/17 05:38 12:38 16:29 WBC RBC Hgb Hct MCV MCH RDW Plt Count Lymph % (Auto) [place] % (Auto) Eos % (Auto) [place] # Seg Neutrophils % Seg Neuts % (Manual) Lymphocytes % (Manual) Seg Neutrophils # Seg Neutrophils # Man Lymphocytes # (Manual) APTT POC ABG pH ABG pH POC ABG pCO2 POC ABG pO2 ABG pO2 ABG HCO3 ABG Base Excess ABG Hemoglobin VBG pH Oxyhemoglobin Sodium Potassium Chloride Carbon Dioxide BUN Creatinine Glucose POC Glucose 248 H 241 H 257 H Lactic Acid Calcium AST ALT Alkaline Phosphatase CK-MB (CK-2) CK-MB (CK-2) Rel Index Total Protein Albumin TSH Urine WBC (Auto) Salicylates 02/05/17 02/06/17 02/06/17 23:56 05:30 11:50 WBC RBC Hgb Hct MCV MCH RDW Plt Count Lymph % (Auto) [place] % (Auto) Eos % (Auto) [place] # Seg Neutrophils % Seg Neuts % (Manual) Lymphocytes % (Manual) Seg Neutrophils # Seg Neutrophils # Man Lymphocytes # (Manual) APTT POC ABG pH ABG pH POC ABG pCO2 POC ABG pO2 ABG pO2 ABG HCO3 ABG Base Excess ABG Hemoglobin VBG pH Oxyhemoglobin Sodium Potassium Chloride Carbon Dioxide BUN Creatinine Glucose POC Glucose 258 H 120 H 254 H Lactic Acid Calcium AST ALT Alkaline Phosphatase CK-MB (CK-2) CK-MB (CK-2) Rel Index Total Protein Albumin TSH Urine WBC (Auto) Salicylates 02/06/17 02/06/17 02/07/17 17:11 23:50 05:22 WBC RBC Hgb Hct MCV MCH RDW Plt Count Lymph % (Auto) [place] % (Auto) Eos % (Auto) [place] # Seg Neutrophils % Seg Neuts % (Manual) Lymphocytes % (Manual) Seg Neutrophils # Seg Neutrophils # Man Lymphocytes # (Manual) APTT POC ABG pH ABG pH POC ABG pCO2 POC ABG pO2 ABG pO2 ABG HCO3 ABG Base Excess ABG Hemoglobin VBG pH Oxyhemoglobin Sodium Potassium Chloride Carbon Dioxide BUN Creatinine Glucose POC Glucose 149 H 240 H 258 H Lactic Acid Calcium AST ALT Alkaline Phosphatase CK-MB (CK-2) CK-MB (CK-2) Rel Index Total Protein Albumin TSH Urine WBC (Auto) Salicylates 02/07/17 02/07/17 02/07/17 11:15 18:33 23:59 WBC RBC Hgb Hct MCV MCH RDW Plt Count Lymph % (Auto) [place] % (Auto) Eos % (Auto) [place] # Seg Neutrophils % Seg Neuts % (Manual) Lymphocytes % (Manual) Seg Neutrophils # Seg Neutrophils # Man Lymphocytes # (Manual) APTT POC ABG pH ABG pH POC ABG pCO2 POC ABG pO2 ABG pO2 ABG HCO3 ABG Base Excess ABG Hemoglobin VBG pH Oxyhemoglobin Sodium Potassium Chloride Carbon Dioxide BUN Creatinine Glucose POC Glucose 239 H 176 H 186 H Lactic Acid Calcium AST ALT Alkaline Phosphatase CK-MB (CK-2) CK-MB (CK-2) Rel Index Total Protein Albumin TSH Urine WBC (Auto) Salicylates 02/08/17 02/08/17 02/08/17 06:15 11:55 16:55 WBC RBC Hgb Hct MCV MCH RDW Plt Count Lymph % (Auto) [place] % (Auto) Eos % (Auto) [place] # Seg Neutrophils % Seg Neuts % (Manual) Lymphocytes % (Manual) Seg Neutrophils # Seg Neutrophils # Man Lymphocytes # (Manual) APTT POC ABG pH ABG pH POC ABG pCO2 POC ABG pO2 ABG pO2 ABG HCO3 ABG Base Excess ABG Hemoglobin VBG pH Oxyhemoglobin Sodium Potassium Chloride Carbon Dioxide BUN Creatinine Glucose POC Glucose 195 H 129 H 246 H Lactic Acid Calcium AST ALT Alkaline Phosphatase CK-MB (CK-2) CK-MB (CK-2) Rel Index Total Protein Albumin TSH Urine WBC (Auto) Salicylates 02/08/17 02/09/17 02/09/17 23:51 05:51 07:24 WBC 14.7 H RBC 3.39 L Hgb 8.9 L Hct 26.4 L MCV 78 L MCH 26 L RDW 18.4 H Plt Count 670 H Lymph % (Auto) 11.8 L [place] % (Auto) Eos % (Auto) [place] # Seg Neutrophils % 81.2 H Seg Neuts % (Manual) Lymphocytes % (Manual) Seg Neutrophils # 11.9 H Seg Neutrophils # Man Lymphocytes # (Manual) APTT POC ABG pH ABG pH POC ABG pCO2 POC ABG pO2 ABG pO2 ABG HCO3 ABG Base Excess ABG Hemoglobin VBG pH Oxyhemoglobin Sodium Potassium Chloride Carbon Dioxide BUN Creatinine Glucose POC Glucose 262 H 295 H Lactic Acid Calcium AST ALT Alkaline Phosphatase CK-MB (CK-2) CK-MB (CK-2) Rel Index Total Protein Albumin TSH Urine WBC (Auto) Salicylates 02/09/17 02/09/17 02/09/17 07:24 12:08 18:39 WBC RBC Hgb Hct MCV MCH RDW Plt Count Lymph % (Auto) [place] % (Auto) Eos % (Auto) [place] # Seg Neutrophils % Seg Neuts % (Manual) Lymphocytes % (Manual) Seg Neutrophils # Seg Neutrophils # Man Lymphocytes # (Manual) APTT POC ABG pH ABG pH POC ABG pCO2 POC ABG pO2 ABG pO2 ABG HCO3 ABG Base Excess ABG Hemoglobin VBG pH Oxyhemoglobin Sodium Potassium Chloride 95.5 L Carbon Dioxide BUN 52 H Creatinine Glucose 277 H POC Glucose 236 H 151 H Lactic Acid Calcium AST ALT Alkaline Phosphatase CK-MB (CK-2) CK-MB (CK-2) Rel Index Total Protein Albumin TSH Urine WBC (Auto) Salicylates 02/10/17 02/10/17 02/10/17 00:01 05:44 11:21 WBC RBC Hgb Hct MCV MCH RDW Plt Count Lymph % (Auto) [place] % (Auto) Eos % (Auto) [place] # Seg Neutrophils % Seg Neuts % (Manual) Lymphocytes % (Manual) Seg Neutrophils # Seg Neutrophils # Man Lymphocytes # (Manual) APTT POC ABG pH ABG pH POC ABG pCO2 POC ABG pO2 ABG pO2 ABG HCO3 ABG Base Excess ABG Hemoglobin VBG pH Oxyhemoglobin Sodium Potassium Chloride Carbon Dioxide BUN Creatinine Glucose POC Glucose 210 H 201 H 233 H Lactic Acid Calcium AST ALT Alkaline Phosphatase CK-MB (CK-2) CK-MB (CK-2) Rel Index Total Protein Albumin TSH Urine WBC (Auto) Salicylates 02/10/17 02/10/17 02/11/17 17:29 23:56 05:24 WBC RBC Hgb Hct MCV MCH RDW Plt Count Lymph % (Auto) [place] % (Auto) Eos % (Auto) [place] # Seg Neutrophils % Seg Neuts % (Manual) Lymphocytes % (Manual) Seg Neutrophils # Seg Neutrophils # Man Lymphocytes # (Manual) APTT POC ABG pH ABG pH POC ABG pCO2 POC ABG pO2 ABG pO2 ABG HCO3 ABG Base Excess ABG Hemoglobin VBG pH Oxyhemoglobin Sodium Potassium Chloride Carbon Dioxide BUN Creatinine Glucose POC Glucose 167 H 191 H 135 H Lactic Acid Calcium AST ALT Alkaline Phosphatase CK-MB (CK-2) CK-MB (CK-2) Rel Index Total Protein Albumin TSH Urine WBC (Auto) Salicylates 02/11/17 02/11/17 02/11/17 12:25 17:03 23:59 WBC RBC Hgb Hct MCV MCH RDW Plt Count Lymph % (Auto) [place] % (Auto) Eos % (Auto) [place] # Seg Neutrophils % Seg Neuts % (Manual) Lymphocytes % (Manual) Seg Neutrophils # Seg Neutrophils # Man Lymphocytes # (Manual) APTT POC ABG pH ABG pH POC ABG pCO2 POC ABG pO2 ABG pO2 ABG HCO3 ABG Base Excess ABG Hemoglobin VBG pH Oxyhemoglobin Sodium Potassium Chloride Carbon Dioxide BUN Creatinine Glucose POC Glucose 275 H 172 H 215 H Lactic Acid Calcium AST ALT Alkaline Phosphatase CK-MB (CK-2) CK-MB (CK-2) Rel Index Total Protein Albumin TSH Urine WBC (Auto) Salicylates 02/12/17 02/12/17 02/12/17 05:39 11:33 17:55 WBC RBC Hgb Hct MCV MCH RDW Plt Count Lymph % (Auto) [place] % (Auto) Eos % (Auto) [place] # Seg Neutrophils % Seg Neuts % (Manual) Lymphocytes % (Manual) Seg Neutrophils # Seg Neutrophils # Man Lymphocytes # (Manual) APTT POC ABG pH ABG pH POC ABG pCO2 POC ABG pO2 ABG pO2 ABG HCO3 ABG Base Excess ABG Hemoglobin VBG pH Oxyhemoglobin Sodium Potassium Chloride Carbon Dioxide BUN Creatinine Glucose POC Glucose 261 H 217 H 172 H Lactic Acid Calcium AST ALT Alkaline Phosphatase CK-MB (CK-2) CK-MB (CK-2) Rel Index Total Protein Albumin TSH Urine WBC (Auto) Salicylates 02/13/17 02/13/17 02/13/17 00:25 06:46 11:26 WBC RBC Hgb Hct MCV MCH RDW Plt Count Lymph % (Auto) [place] % (Auto) Eos % (Auto) [place] # Seg Neutrophils % Seg Neuts % (Manual) Lymphocytes % (Manual) Seg Neutrophils # Seg Neutrophils # Man Lymphocytes # (Manual) APTT POC ABG pH ABG pH POC ABG pCO2 POC ABG pO2 ABG pO2 ABG HCO3 ABG Base Excess ABG Hemoglobin VBG pH Oxyhemoglobin Sodium Potassium Chloride Carbon Dioxide BUN Creatinine Glucose POC Glucose 207 H 219 H 231 H Lactic Acid Calcium AST ALT Alkaline Phosphatase CK-MB (CK-2) CK-MB (CK-2) Rel Index Total Protein Albumin TSH Urine WBC (Auto) Salicylates 02/13/17 02/13/17 02/14/17 17:12 23:44 05:44 WBC RBC Hgb Hct MCV MCH RDW Plt Count Lymph % (Auto) [place] % (Auto) Eos % (Auto) [place] # Seg Neutrophils % Seg Neuts % (Manual) Lymphocytes % (Manual) Seg Neutrophils # Seg Neutrophils # Man Lymphocytes # (Manual) APTT POC ABG pH ABG pH POC ABG pCO2 POC ABG pO2 ABG pO2 ABG HCO3 ABG Base Excess ABG Hemoglobin VBG pH Oxyhemoglobin Sodium Potassium Chloride Carbon Dioxide BUN Creatinine Glucose POC Glucose 190 H 256 H 184 H Lactic Acid Calcium AST ALT Alkaline Phosphatase CK-MB (CK-2) CK-MB (CK-2) Rel Index Total Protein Albumin TSH Urine WBC (Auto) Salicylates 02/14/17 02/14/17 02/14/17 12:21 17:57 23:18 WBC RBC Hgb Hct MCV MCH RDW Plt Count Lymph % (Auto) [place] % (Auto) Eos % (Auto) [place] # Seg Neutrophils % Seg Neuts % (Manual) Lymphocytes % (Manual) Seg Neutrophils # Seg Neutrophils # Man Lymphocytes # (Manual) APTT POC ABG pH ABG pH POC ABG pCO2 POC ABG pO2 ABG pO2 ABG HCO3 ABG Base Excess ABG Hemoglobin VBG pH Oxyhemoglobin Sodium Potassium Chloride Carbon Dioxide BUN Creatinine Glucose POC Glucose 233 H 155 H 165 H Lactic Acid Calcium AST ALT Alkaline Phosphatase CK-MB (CK-2) CK-MB (CK-2) Rel Index Total Protein Albumin TSH Urine WBC (Auto) Salicylates 02/15/17 02/15/17 02/15/17 05:33 11:45 17:20 WBC RBC Hgb Hct MCV MCH RDW Plt Count Lymph % (Auto) [place] % (Auto) Eos % (Auto) [place] # Seg Neutrophils % Seg Neuts % (Manual) Lymphocytes % (Manual) Seg Neutrophils # Seg Neutrophils # Man Lymphocytes # (Manual) APTT POC ABG pH ABG pH POC ABG pCO2 POC ABG pO2 ABG pO2 ABG HCO3 ABG Base Excess ABG Hemoglobin VBG pH Oxyhemoglobin Sodium Potassium Chloride Carbon Dioxide BUN Creatinine Glucose POC Glucose 239 H 130 H 189 H Lactic Acid Calcium AST ALT Alkaline Phosphatase CK-MB (CK-2) CK-MB (CK-2) Rel Index Total Protein Albumin TSH Urine WBC (Auto) Salicylates 02/16/17 02/16/17 02/16/17 00:14 05:09 12:31 WBC RBC Hgb Hct MCV MCH RDW Plt Count Lymph % (Auto) [place] % (Auto) Eos % (Auto) [place] # Seg Neutrophils % Seg Neuts % (Manual) Lymphocytes % (Manual) Seg Neutrophils # Seg Neutrophils # Man Lymphocytes # (Manual) APTT POC ABG pH ABG pH POC ABG pCO2 POC ABG pO2 ABG pO2 ABG HCO3 ABG Base Excess ABG Hemoglobin VBG pH Oxyhemoglobin Sodium Potassium Chloride Carbon Dioxide BUN Creatinine Glucose POC Glucose 197 H 226 H 178 H Lactic Acid Calcium AST ALT Alkaline Phosphatase CK-MB (CK-2) CK-MB (CK-2) Rel Index Total Protein Albumin TSH Urine WBC (Auto) Salicylates 02/16/17 02/16/17 02/17/17 16:35 23:49 05:37 WBC RBC Hgb Hct MCV MCH RDW Plt Count Lymph % (Auto) [place] % (Auto) Eos % (Auto) [place] # Seg Neutrophils % Seg Neuts % (Manual) Lymphocytes % (Manual) Seg Neutrophils # Seg Neutrophils # Man Lymphocytes # (Manual) APTT POC ABG pH ABG pH POC ABG pCO2 POC ABG pO2 ABG pO2 ABG HCO3 ABG Base Excess ABG Hemoglobin VBG pH Oxyhemoglobin Sodium Potassium Chloride Carbon Dioxide BUN Creatinine Glucose POC Glucose 174 H 62 L 153 H Lactic Acid Calcium AST ALT Alkaline Phosphatase CK-MB (CK-2) CK-MB (CK-2) Rel Index Total Protein Albumin TSH Urine WBC (Auto) Salicylates 02/17/17 02/17/17 02/17/17 11:39 17:02 22:24 WBC RBC Hgb Hct MCV MCH RDW Plt Count Lymph % (Auto) [place] % (Auto) Eos % (Auto) [place] # Seg Neutrophils % Seg Neuts % (Manual) Lymphocytes % (Manual) Seg Neutrophils # Seg Neutrophils # Man Lymphocytes # (Manual) APTT POC ABG pH ABG pH POC ABG pCO2 POC ABG pO2 ABG pO2 ABG HCO3 ABG Base Excess ABG Hemoglobin VBG pH Oxyhemoglobin Sodium Potassium Chloride Carbon Dioxide BUN Creatinine Glucose POC Glucose 231 H 112 H 116 H Lactic Acid Calcium AST ALT Alkaline Phosphatase CK-MB (CK-2) CK-MB (CK-2) Rel Index Total Protein Albumin TSH Urine WBC (Auto) Salicylates 02/18/17 02/19/17 02/19/17 15:34 05:09 07:57 WBC RBC Hgb Hct MCV MCH RDW Plt Count Lymph % (Auto) [place] % (Auto) Eos % (Auto) [place] # Seg Neutrophils % Seg Neuts % (Manual) Lymphocytes % (Manual) Seg Neutrophils # Seg Neutrophils # Man Lymphocytes # (Manual) APTT POC ABG pH ABG pH POC ABG pCO2 POC ABG pO2 ABG pO2 ABG HCO3 ABG Base Excess ABG Hemoglobin VBG pH Oxyhemoglobin Sodium Potassium Chloride Carbon Dioxide BUN Creatinine Glucose POC Glucose 215 H 218 H 283 H Lactic Acid Calcium AST ALT Alkaline Phosphatase CK-MB (CK-2) CK-MB (CK-2) Rel Index Total Protein Albumin TSH Urine WBC (Auto) Salicylates 02/19/17 02/19/17 02/20/17 14:49 22:10 05:10 WBC RBC Hgb Hct MCV MCH RDW Plt Count Lymph % (Auto) [place] % (Auto) Eos % (Auto) [place] # Seg Neutrophils % Seg Neuts % (Manual) Lymphocytes % (Manual) Seg Neutrophils # Seg Neutrophils # Man Lymphocytes # (Manual) APTT POC ABG pH ABG pH POC ABG pCO2 POC ABG pO2 ABG pO2 ABG HCO3 ABG Base Excess ABG Hemoglobin VBG pH Oxyhemoglobin Sodium Potassium Chloride Carbon Dioxide BUN Creatinine Glucose POC Glucose 290 H 169 H 209 H Lactic Acid Calcium AST ALT Alkaline Phosphatase CK-MB (CK-2) CK-MB (CK-2) Rel Index Total Protein Albumin TSH Urine WBC (Auto) Salicylates 02/20/17 02/20/17 02/21/17 15:05 21:52 02:00 WBC RBC Hgb Hct MCV MCH RDW Plt Count Lymph % (Auto) [place] % (Auto) Eos % (Auto) [place] # Seg Neutrophils % Seg Neuts % (Manual) Lymphocytes % (Manual) Seg Neutrophils # Seg Neutrophils # Man Lymphocytes # (Manual) APTT POC ABG pH ABG pH POC ABG pCO2 POC ABG pO2 ABG pO2 ABG HCO3 ABG Base Excess ABG Hemoglobin VBG pH Oxyhemoglobin Sodium Potassium Chloride Carbon Dioxide BUN Creatinine Glucose POC Glucose 172 H 209 H 216 H Lactic Acid Calcium AST ALT Alkaline Phosphatase CK-MB (CK-2) CK-MB (CK-2) Rel Index Total Protein Albumin TSH Urine WBC (Auto) Salicylates 02/21/17 02/21/17 02/21/17 04:54 14:43 17:47 WBC RBC Hgb Hct MCV MCH RDW Plt Count Lymph % (Auto) [place] % (Auto) Eos % (Auto) [place] # Seg Neutrophils % Seg Neuts % (Manual) Lymphocytes % (Manual) Seg Neutrophils # Seg Neutrophils # Man Lymphocytes # (Manual) APTT POC ABG pH ABG pH POC ABG pCO2 POC ABG pO2 ABG pO2 ABG HCO3 ABG Base Excess ABG Hemoglobin VBG pH Oxyhemoglobin Sodium Potassium Chloride Carbon Dioxide BUN Creatinine Glucose POC Glucose 227 H 290 H 220 H Lactic Acid Calcium AST ALT Alkaline Phosphatase CK-MB (CK-2) CK-MB (CK-2) Rel Index Total Protein Albumin TSH Urine WBC (Auto) Salicylates 02/21/17 02/22/17 02/22/17 22:02 04:52 15:25 WBC RBC Hgb Hct MCV MCH RDW Plt Count Lymph % (Auto) [place] % (Auto) Eos % (Auto) [place] # Seg Neutrophils % Seg Neuts % (Manual) Lymphocytes % (Manual) Seg Neutrophils # Seg Neutrophils # Man Lymphocytes # (Manual) APTT POC ABG pH ABG pH POC ABG pCO2 POC ABG pO2 ABG pO2 ABG HCO3 ABG Base Excess ABG Hemoglobin VBG pH Oxyhemoglobin Sodium Potassium Chloride Carbon Dioxide BUN Creatinine Glucose POC Glucose 246 H 212 H 236 H Lactic Acid Calcium AST ALT Alkaline Phosphatase CK-MB (CK-2) CK-MB (CK-2) Rel Index Total Protein Albumin TSH Urine WBC (Auto) Salicylates 02/22/17 02/23/17 02/23/17 21:33 06:04 10:00 WBC RBC Hgb Hct MCV MCH RDW Plt Count Lymph % (Auto) [place] % (Auto) Eos % (Auto) [place] # Seg Neutrophils % Seg Neuts % (Manual) Lymphocytes % (Manual) Seg Neutrophils # Seg Neutrophils # Man Lymphocytes # (Manual) APTT POC ABG pH ABG pH POC ABG pCO2 POC ABG pO2 ABG pO2 ABG HCO3 ABG Base Excess ABG Hemoglobin VBG pH Oxyhemoglobin Sodium Potassium Chloride Carbon Dioxide BUN Creatinine Glucose POC Glucose 255 H 208 H 174 H Lactic Acid Calcium AST ALT Alkaline Phosphatase CK-MB (CK-2) CK-MB (CK-2) Rel Index Total Protein Albumin TSH Urine WBC (Auto) Salicylates 02/23/17 02/23/17 02/23/17 12:52 17:15 21:51 WBC RBC Hgb Hct MCV MCH RDW Plt Count Lymph % (Auto) [place] % (Auto) Eos % (Auto) [place] # Seg Neutrophils % Seg Neuts % (Manual) Lymphocytes % (Manual) Seg Neutrophils # Seg Neutrophils # Man Lymphocytes # (Manual) APTT POC ABG pH ABG pH POC ABG pCO2 POC ABG pO2 ABG pO2 ABG HCO3 ABG Base Excess ABG Hemoglobin VBG pH Oxyhemoglobin Sodium Potassium Chloride Carbon Dioxide BUN Creatinine Glucose POC Glucose 203 H 269 H 205 H Lactic Acid Calcium AST ALT Alkaline Phosphatase CK-MB (CK-2) CK-MB (CK-2) Rel Index Total Protein Albumin TSH Urine WBC (Auto) Salicylates 02/24/17 02/24/17 02/24/17 10:23 17:45 21:24 WBC RBC Hgb Hct MCV MCH RDW Plt Count Lymph % (Auto) [place] % (Auto) Eos % (Auto) [place] # Seg Neutrophils % Seg Neuts % (Manual) Lymphocytes % (Manual) Seg Neutrophils # Seg Neutrophils # Man Lymphocytes # (Manual) APTT POC ABG pH ABG pH POC ABG pCO2 POC ABG pO2 ABG pO2 ABG HCO3 ABG Base Excess ABG Hemoglobin VBG pH Oxyhemoglobin Sodium Potassium Chloride Carbon Dioxide BUN Creatinine Glucose POC Glucose 280 H 239 H 254 H Lactic Acid Calcium AST ALT Alkaline Phosphatase CK-MB (CK-2) CK-MB (CK-2) Rel Index Total Protein Albumin TSH Urine WBC (Auto) Salicylates 02/25/17 02/25/17 02/25/17 02:12 05:17 14:32 WBC RBC Hgb Hct MCV MCH RDW Plt Count Lymph % (Auto) [place] % (Auto) Eos % (Auto) [place] # Seg Neutrophils % Seg Neuts % (Manual) Lymphocytes % (Manual) Seg Neutrophils # Seg Neutrophils # Man Lymphocytes # (Manual) APTT POC ABG pH ABG pH POC ABG pCO2 POC ABG pO2 ABG pO2 ABG HCO3 ABG Base Excess ABG Hemoglobin VBG pH Oxyhemoglobin Sodium Potassium Chloride Carbon Dioxide BUN Creatinine Glucose POC Glucose 296 H 332 H 353 H Lactic Acid Calcium AST ALT Alkaline Phosphatase CK-MB (CK-2) CK-MB (CK-2) Rel Index Total Protein Albumin TSH Urine WBC (Auto) Salicylates 02/25/17 02/26/17 02/26/17 22:14 00:37 05:52 WBC RBC Hgb Hct MCV MCH RDW Plt Count Lymph % (Auto) [place] % (Auto) Eos % (Auto) [place] # Seg Neutrophils % Seg Neuts % (Manual) Lymphocytes % (Manual) Seg Neutrophils # Seg Neutrophils # Man Lymphocytes # (Manual) APTT POC ABG pH ABG pH POC ABG pCO2 POC ABG pO2 ABG pO2 ABG HCO3 ABG Base Excess ABG Hemoglobin VBG pH Oxyhemoglobin Sodium Potassium Chloride Carbon Dioxide BUN Creatinine Glucose POC Glucose 201 H 233 H 269 H Lactic Acid Calcium AST ALT Alkaline Phosphatase CK-MB (CK-2) CK-MB (CK-2) Rel Index Total Protein Albumin TSH Urine WBC (Auto) Salicylates 02/26/17 02/26/17 02/26/17 11:48 13:49 21:26 WBC RBC Hgb Hct MCV MCH RDW Plt Count Lymph % (Auto) [place] % (Auto) Eos % (Auto) [place] # Seg Neutrophils % Seg Neuts % (Manual) Lymphocytes % (Manual) Seg Neutrophils # Seg Neutrophils # Man Lymphocytes # (Manual) APTT POC ABG pH ABG pH POC ABG pCO2 POC ABG pO2 ABG pO2 ABG HCO3 ABG Base Excess ABG Hemoglobin VBG pH Oxyhemoglobin Sodium Potassium Chloride Carbon Dioxide BUN Creatinine Glucose POC Glucose 333 H 322 H 244 H Lactic Acid Calcium AST ALT Alkaline Phosphatase CK-MB (CK-2) CK-MB (CK-2) Rel Index Total Protein Albumin TSH Urine WBC (Auto) Salicylates 02/27/17 02/27/17 02/27/17 05:27 13:51 21:48 WBC RBC Hgb Hct MCV MCH RDW Plt Count Lymph % (Auto) [place] % (Auto) Eos % (Auto) [place] # Seg Neutrophils % Seg Neuts % (Manual) Lymphocytes % (Manual) Seg Neutrophils # Seg Neutrophils # Man Lymphocytes # (Manual) APTT POC ABG pH ABG pH POC ABG pCO2 POC ABG pO2 ABG pO2 ABG HCO3 ABG Base Excess ABG Hemoglobin VBG pH Oxyhemoglobin Sodium Potassium Chloride Carbon Dioxide BUN Creatinine Glucose POC Glucose 217 H 239 H 254 H Lactic Acid Calcium AST ALT Alkaline Phosphatase CK-MB (CK-2) CK-MB (CK-2) Rel Index Total Protein Albumin TSH Urine WBC (Auto) Salicylates 02/28/17 02/28/17 02/28/17 05:38 11:00 19:44 WBC RBC Hgb Hct MCV MCH RDW Plt Count Lymph % (Auto) [place] % (Auto) Eos % (Auto) [place] # Seg Neutrophils % Seg Neuts % (Manual) Lymphocytes % (Manual) Seg Neutrophils # Seg Neutrophils # Man Lymphocytes # (Manual) APTT POC ABG pH ABG pH POC ABG pCO2 POC ABG pO2 ABG pO2 ABG HCO3 ABG Base Excess ABG Hemoglobin VBG pH Oxyhemoglobin Sodium Potassium Chloride Carbon Dioxide BUN Creatinine Glucose POC Glucose 325 H 203 H 116 H Lactic Acid Calcium AST ALT Alkaline Phosphatase CK-MB (CK-2) CK-MB (CK-2) Rel Index Total Protein Albumin TSH Urine WBC (Auto) Salicylates 03/01/17 03/01/17 03/01/17 00:08 05:31 12:17 WBC RBC Hgb Hct MCV MCH RDW Plt Count Lymph % (Auto) [place] % (Auto) Eos % (Auto) [place] # Seg Neutrophils % Seg Neuts % (Manual) Lymphocytes % (Manual) Seg Neutrophils # Seg Neutrophils # Man Lymphocytes # (Manual) APTT POC ABG pH ABG pH POC ABG pCO2 POC ABG pO2 ABG pO2 ABG HCO3 ABG Base Excess ABG Hemoglobin VBG pH Oxyhemoglobin Sodium Potassium Chloride Carbon Dioxide BUN Creatinine Glucose POC Glucose 202 H 183 H 184 H Lactic Acid Calcium AST ALT Alkaline Phosphatase CK-MB (CK-2) CK-MB (CK-2) Rel Index Total Protein Albumin TSH Urine WBC (Auto) Salicylates 03/02/17 03/02/17 03/02/17 00:12 05:58 18:22 WBC RBC Hgb Hct MCV MCH RDW Plt Count Lymph % (Auto) [place] % (Auto) Eos % (Auto) [place] # Seg Neutrophils % Seg Neuts % (Manual) Lymphocytes % (Manual) Seg Neutrophils # Seg Neutrophils # Man Lymphocytes # (Manual) APTT POC ABG pH ABG pH POC ABG pCO2 POC ABG pO2 ABG pO2 ABG HCO3 ABG Base Excess ABG Hemoglobin VBG pH Oxyhemoglobin Sodium Potassium Chloride Carbon Dioxide BUN Creatinine Glucose POC Glucose 117 H 176 H 156 H Lactic Acid Calcium AST ALT Alkaline Phosphatase CK-MB (CK-2) CK-MB (CK-2) Rel Index Total Protein Albumin TSH Urine WBC (Auto) Salicylates 03/02/17 03/03/17 03/03/17 23:51 05:44 11:32 WBC RBC Hgb Hct MCV MCH RDW Plt Count Lymph % (Auto) [place] % (Auto) Eos % (Auto) [place] # Seg Neutrophils % Seg Neuts % (Manual) Lymphocytes % (Manual) Seg Neutrophils # Seg Neutrophils # Man Lymphocytes # (Manual) APTT POC ABG pH ABG pH POC ABG pCO2 POC ABG pO2 ABG pO2 ABG HCO3 ABG Base Excess ABG Hemoglobin VBG pH Oxyhemoglobin Sodium Potassium Chloride Carbon Dioxide BUN Creatinine Glucose POC Glucose 211 H 117 H 133 H Lactic Acid Calcium AST ALT Alkaline Phosphatase CK-MB (CK-2) CK-MB (CK-2) Rel Index Total Protein Albumin TSH Urine WBC (Auto) Salicylates 03/03/17 03/03/17 03/04/17 17:43 23:17 05:30 WBC RBC Hgb Hct MCV MCH RDW Plt Count Lymph % (Auto) [place] % (Auto) Eos % (Auto) [place] # Seg Neutrophils % Seg Neuts % (Manual) Lymphocytes % (Manual) Seg Neutrophils # Seg Neutrophils # Man Lymphocytes # (Manual) APTT POC ABG pH ABG pH POC ABG pCO2 POC ABG pO2 ABG pO2 ABG HCO3 ABG Base Excess ABG Hemoglobin VBG pH Oxyhemoglobin Sodium Potassium Chloride Carbon Dioxide BUN Creatinine Glucose POC Glucose 206 H 170 H 126 H Lactic Acid Calcium AST ALT Alkaline Phosphatase CK-MB (CK-2) CK-MB (CK-2) Rel Index Total Protein Albumin TSH Urine WBC (Auto) Salicylates 03/04/17 03/04/17 03/05/17 12:17 17:27 05:20 WBC RBC Hgb Hct MCV MCH RDW Plt Count Lymph % (Auto) [place] % (Auto) Eos % (Auto) [place] # Seg Neutrophils % Seg Neuts % (Manual) Lymphocytes % (Manual) Seg Neutrophils # Seg Neutrophils # Man Lymphocytes # (Manual) APTT POC ABG pH ABG pH POC ABG pCO2 POC ABG pO2 ABG pO2 ABG HCO3 ABG Base Excess ABG Hemoglobin VBG pH Oxyhemoglobin Sodium Potassium Chloride Carbon Dioxide BUN Creatinine Glucose POC Glucose 135 H 121 H 185 H Lactic Acid Calcium AST ALT Alkaline Phosphatase CK-MB (CK-2) CK-MB (CK-2) Rel Index Total Protein Albumin TSH Urine WBC (Auto) Salicylates 03/05/17 03/06/17 03/06/17 11:50 11:52 17:34 WBC RBC Hgb Hct MCV MCH RDW Plt Count Lymph % (Auto) [place] % (Auto) Eos % (Auto) [place] # Seg Neutrophils % Seg Neuts % (Manual) Lymphocytes % (Manual) Seg Neutrophils # Seg Neutrophils # Man Lymphocytes # (Manual) APTT POC ABG pH ABG pH POC ABG pCO2 POC ABG pO2 ABG pO2 ABG HCO3 ABG Base Excess ABG Hemoglobin VBG pH Oxyhemoglobin Sodium Potassium Chloride Carbon Dioxide BUN Creatinine Glucose POC Glucose 116 H 133 H 181 H Lactic Acid Calcium AST ALT Alkaline Phosphatase CK-MB (CK-2) CK-MB (CK-2) Rel Index Total Protein Albumin TSH Urine WBC (Auto) Salicylates 03/07/17 03/07/17 03/07/17 05:21 11:36 17:49 WBC RBC Hgb Hct MCV MCH RDW Plt Count Lymph % (Auto) [place] % (Auto) Eos % (Auto) [place] # Seg Neutrophils % Seg Neuts % (Manual) Lymphocytes % (Manual) Seg Neutrophils # Seg Neutrophils # Man Lymphocytes # (Manual) APTT POC ABG pH ABG pH POC ABG pCO2 POC ABG pO2 ABG pO2 ABG HCO3 ABG Base Excess ABG Hemoglobin VBG pH Oxyhemoglobin Sodium Potassium Chloride Carbon Dioxide BUN Creatinine Glucose POC Glucose 159 H 137 H 158 H Lactic Acid Calcium AST ALT Alkaline Phosphatase CK-MB (CK-2) CK-MB (CK-2) Rel Index Total Protein Albumin TSH Urine WBC (Auto) Salicylates 03/08/17 03/08/17 03/08/17 05:51 13:58 23:50 WBC RBC Hgb Hct MCV MCH RDW Plt Count Lymph % (Auto) [place] % (Auto) Eos % (Auto) [place] # Seg Neutrophils % Seg Neuts % (Manual) Lymphocytes % (Manual) Seg Neutrophils # Seg Neutrophils # Man Lymphocytes # (Manual) APTT POC ABG pH ABG pH POC ABG pCO2 POC ABG pO2 ABG pO2 ABG HCO3 ABG Base Excess ABG Hemoglobin VBG pH Oxyhemoglobin Sodium Potassium Chloride Carbon Dioxide BUN Creatinine Glucose POC Glucose 122 H 182 H 114 H Lactic Acid Calcium AST ALT Alkaline Phosphatase CK-MB (CK-2) CK-MB (CK-2) Rel Index Total Protein Albumin TSH Urine WBC (Auto) Salicylates 03/09/17 03/09/17 03/09/17 05:21 05:51 05:51 WBC RBC 3.61 L Hgb 9.5 L Hct 28.3 L MCV 79 L MCH 26 L RDW 17.8 H Plt Count Lymph % (Auto) [place] % (Auto) Eos % (Auto) [place] # Seg Neutrophils % Seg Neuts % (Manual) Lymphocytes % (Manual) Seg Neutrophils # Seg Neutrophils # Man Lymphocytes # (Manual) APTT POC ABG pH ABG pH POC ABG pCO2 POC ABG pO2 ABG pO2 ABG HCO3 ABG Base Excess ABG Hemoglobin VBG pH Oxyhemoglobin Sodium 134 L Potassium Chloride 95.5 L Carbon Dioxide BUN 33 H Creatinine 0.5 L Glucose 143 H POC Glucose 153 H Lactic Acid Calcium AST ALT Alkaline Phosphatase CK-MB (CK-2) CK-MB (CK-2) Rel Index Total Protein Albumin TSH Urine WBC (Auto) Salicylates 03/09/17 03/09/17 03/09/17 12:10 18:13 21:00 WBC RBC Hgb Hct MCV MCH RDW Plt Count Lymph % (Auto) [place] % (Auto) Eos % (Auto) [place] # Seg Neutrophils % Seg Neuts % (Manual) Lymphocytes % (Manual) Seg Neutrophils # Seg Neutrophils # Man Lymphocytes # (Manual) APTT POC ABG pH ABG pH POC ABG pCO2 POC ABG pO2 ABG pO2 ABG HCO3 ABG Base Excess ABG Hemoglobin VBG pH Oxyhemoglobin Sodium Potassium Chloride Carbon Dioxide BUN Creatinine Glucose POC Glucose 203 H 221 H 198 H Lactic Acid Calcium AST ALT Alkaline Phosphatase CK-MB (CK-2) CK-MB (CK-2) Rel Index Total Protein Albumin TSH Urine WBC (Auto) Salicylates 03/09/17 03/10/17 03/10/17 23:58 05:09 05:09 WBC RBC Hgb 10.3 L Hct 30.5 L MCV 78 L MCH 26 L RDW 17.9 H Plt Count Lymph % (Auto) [place] % (Auto) 10.0 H Eos % (Auto) 6.0 H [place] # Seg Neutrophils % Seg Neuts % (Manual) Lymphocytes % (Manual) Seg Neutrophils # Seg Neutrophils # Man Lymphocytes # (Manual) APTT POC ABG pH ABG pH POC ABG pCO2 POC ABG pO2 ABG pO2 ABG HCO3 ABG Base Excess ABG Hemoglobin VBG pH Oxyhemoglobin Sodium 132 L Potassium Chloride 92.2 L Carbon Dioxide BUN 33 H Creatinine 0.5 L Glucose 50 L POC Glucose 167 H Lactic Acid Calcium AST ALT Alkaline Phosphatase CK-MB (CK-2) CK-MB (CK-2) Rel Index Total Protein Albumin TSH Urine WBC (Auto) Salicylates 03/10/17 03/10/17 03/10/17 05:33 05:34 11:48 WBC RBC Hgb Hct MCV MCH RDW Plt Count Lymph % (Auto) [place] % (Auto) Eos % (Auto) [place] # Seg Neutrophils % Seg Neuts % (Manual) Lymphocytes % (Manual) Seg Neutrophils # Seg Neutrophils # Man Lymphocytes # (Manual) APTT POC ABG pH ABG pH POC ABG pCO2 POC ABG pO2 ABG pO2 ABG HCO3 ABG Base Excess ABG Hemoglobin VBG pH Oxyhemoglobin Sodium Potassium Chloride Carbon Dioxide BUN Creatinine Glucose POC Glucose 52 L 53 L 148 H Lactic Acid Calcium AST ALT Alkaline Phosphatase CK-MB (CK-2) CK-MB (CK-2) Rel Index Total Protein Albumin TSH Urine WBC (Auto) Salicylates 03/10/17 03/10/17 03/11/17 17:53 23:47 05:18 WBC RBC Hgb Hct MCV MCH RDW Plt Count Lymph % (Auto) [place] % (Auto) Eos % (Auto) [place] # Seg Neutrophils % Seg Neuts % (Manual) Lymphocytes % (Manual) Seg Neutrophils # Seg Neutrophils # Man Lymphocytes # (Manual) APTT POC ABG pH ABG pH POC ABG pCO2 POC ABG pO2 ABG pO2 ABG HCO3 ABG Base Excess ABG Hemoglobin VBG pH Oxyhemoglobin Sodium Potassium Chloride Carbon Dioxide BUN Creatinine Glucose POC Glucose 189 H 398 H 126 H Lactic Acid Calcium AST ALT Alkaline Phosphatase CK-MB (CK-2) CK-MB (CK-2) Rel Index Total Protein Albumin TSH Urine WBC (Auto) Salicylates 03/11/17 03/11/17 03/11/17 11:53 17:30 23:10 WBC RBC Hgb Hct MCV MCH RDW Plt Count Lymph % (Auto) [place] % (Auto) Eos % (Auto) [place] # Seg Neutrophils % Seg Neuts % (Manual) Lymphocytes % (Manual) Seg Neutrophils # Seg Neutrophils # Man Lymphocytes # (Manual) APTT POC ABG pH ABG pH POC ABG pCO2 POC ABG pO2 ABG pO2 ABG HCO3 ABG Base Excess ABG Hemoglobin VBG pH Oxyhemoglobin Sodium Potassium Chloride Carbon Dioxide BUN Creatinine Glucose POC Glucose 198 H 142 H 244 H Lactic Acid Calcium AST ALT Alkaline Phosphatase CK-MB (CK-2) CK-MB (CK-2) Rel Index Total Protein Albumin TSH Urine WBC (Auto) Salicylates 03/12/17 03/12/17 03/12/17 04:36 11:49 17:23 WBC RBC Hgb Hct MCV MCH RDW Plt Count Lymph % (Auto) [place] % (Auto) Eos % (Auto) [place] # Seg Neutrophils % Seg Neuts % (Manual) Lymphocytes % (Manual) Seg Neutrophils # Seg Neutrophils # Man Lymphocytes # (Manual) APTT POC ABG pH ABG pH POC ABG pCO2 POC ABG pO2 ABG pO2 ABG HCO3 ABG Base Excess ABG Hemoglobin VBG pH Oxyhemoglobin Sodium Potassium Chloride Carbon Dioxide BUN Creatinine Glucose POC Glucose 205 H 197 H 209 H Lactic Acid Calcium AST ALT Alkaline Phosphatase CK-MB (CK-2) CK-MB (CK-2) Rel Index Total Protein Albumin TSH Urine WBC (Auto) Salicylates 03/12/17 03/13/17 03/13/17 23:51 05:32 11:43 WBC RBC Hgb Hct MCV MCH RDW Plt Count Lymph % (Auto) [place] % (Auto) Eos % (Auto) [place] # Seg Neutrophils % Seg Neuts % (Manual) Lymphocytes % (Manual) Seg Neutrophils # Seg Neutrophils # Man Lymphocytes # (Manual) APTT POC ABG pH ABG pH POC ABG pCO2 POC ABG pO2 ABG pO2 ABG HCO3 ABG Base Excess ABG Hemoglobin VBG pH Oxyhemoglobin Sodium Potassium Chloride Carbon Dioxide BUN Creatinine Glucose POC Glucose 210 H 154 H 164 H Lactic Acid Calcium AST ALT Alkaline Phosphatase CK-MB (CK-2) CK-MB (CK-2) Rel Index Total Protein Albumin TSH Urine WBC (Auto) Salicylates 03/13/17 03/13/17 03/14/17 17:11 23:26 05:42 WBC RBC Hgb Hct MCV MCH RDW Plt Count Lymph % (Auto) [place] % (Auto) Eos % (Auto) [place] # Seg Neutrophils % Seg Neuts % (Manual) Lymphocytes % (Manual) Seg Neutrophils # Seg Neutrophils # Man Lymphocytes # (Manual) APTT POC ABG pH ABG pH POC ABG pCO2 POC ABG pO2 ABG pO2 ABG HCO3 ABG Base Excess ABG Hemoglobin VBG pH Oxyhemoglobin Sodium Potassium Chloride Carbon Dioxide BUN Creatinine Glucose POC Glucose 195 H 240 H 230 H Lactic Acid Calcium AST ALT Alkaline Phosphatase CK-MB (CK-2) CK-MB (CK-2) Rel Index Total Protein Albumin TSH Urine WBC (Auto) Salicylates 03/14/17 03/14/17 03/14/17 14:04 17:34 23:42 WBC RBC Hgb Hct MCV MCH RDW Plt Count Lymph % (Auto) [place] % (Auto) Eos % (Auto) [place] # Seg Neutrophils % Seg Neuts % (Manual) Lymphocytes % (Manual) Seg Neutrophils # Seg Neutrophils # Man Lymphocytes # (Manual) APTT POC ABG pH ABG pH POC ABG pCO2 POC ABG pO2 ABG pO2 ABG HCO3 ABG Base Excess ABG Hemoglobin VBG pH Oxyhemoglobin Sodium Potassium Chloride Carbon Dioxide BUN Creatinine Glucose POC Glucose 227 H 186 H 225 H Lactic Acid Calcium AST ALT Alkaline Phosphatase CK-MB (CK-2) CK-MB (CK-2) Rel Index Total Protein Albumin TSH Urine WBC (Auto) Salicylates 03/15/17 03/15/17 03/15/17 05:21 17:13 21:37 WBC RBC Hgb Hct MCV MCH RDW Plt Count Lymph % (Auto) [place] % (Auto) Eos % (Auto) [place] # Seg Neutrophils % Seg Neuts % (Manual) Lymphocytes % (Manual) Seg Neutrophils # Seg Neutrophils # Man Lymphocytes # (Manual) APTT POC ABG pH ABG pH POC ABG pCO2 POC ABG pO2 ABG pO2 ABG HCO3 ABG Base Excess ABG Hemoglobin VBG pH Oxyhemoglobin Sodium Potassium Chloride Carbon Dioxide BUN Creatinine Glucose POC Glucose 244 H 203 H 216 H Lactic Acid Calcium AST ALT Alkaline Phosphatase CK-MB (CK-2) CK-MB (CK-2) Rel Index Total Protein Albumin TSH Urine WBC (Auto) Salicylates 03/16/17 03/16/17 03/16/17 05:52 18:07 21:54 WBC RBC Hgb Hct MCV MCH RDW Plt Count Lymph % (Auto) [place] % (Auto) Eos % (Auto) [place] # Seg Neutrophils % Seg Neuts % (Manual) Lymphocytes % (Manual) Seg Neutrophils # Seg Neutrophils # Man Lymphocytes # (Manual) APTT POC ABG pH ABG pH POC ABG pCO2 POC ABG pO2 ABG pO2 ABG HCO3 ABG Base Excess ABG Hemoglobin VBG pH Oxyhemoglobin Sodium Potassium Chloride Carbon Dioxide BUN Creatinine Glucose POC Glucose 248 H 254 H 244 H Lactic Acid Calcium AST ALT Alkaline Phosphatase CK-MB (CK-2) CK-MB (CK-2) Rel Index Total Protein Albumin TSH Urine WBC (Auto) Salicylates 03/17/17 03/17/17 03/17/17 07:07 07:42 07:43 WBC RBC Hgb 9.7 L Hct 29.1 L MCV 78 L MCH 26 L RDW 17.4 H Plt Count Lymph % (Auto) [place] % (Auto) Eos % (Auto) [place] # Seg Neutrophils % Seg Neuts % (Manual) Lymphocytes % (Manual) Seg Neutrophils # Seg Neutrophils # Man Lymphocytes # (Manual) APTT POC ABG pH ABG pH POC ABG pCO2 POC ABG pO2 ABG pO2 ABG HCO3 ABG Base Excess ABG Hemoglobin VBG pH Oxyhemoglobin Sodium Potassium Chloride 96.6 L Carbon Dioxide BUN 30 H Creatinine 0.5 L Glucose 251 H POC Glucose 222 H Lactic Acid Calcium AST ALT Alkaline Phosphatase CK-MB (CK-2) CK-MB (CK-2) Rel Index Total Protein Albumin TSH Urine WBC (Auto) Salicylates 03/17/17 03/17/17 03/18/17 14:08 21:20 14:24 WBC RBC Hgb Hct MCV MCH RDW Plt Count Lymph % (Auto) [place] % (Auto) Eos % (Auto) [place] # Seg Neutrophils % Seg Neuts % (Manual) Lymphocytes % (Manual) Seg Neutrophils # Seg Neutrophils # Man Lymphocytes # (Manual) APTT POC ABG pH ABG pH POC ABG pCO2 POC ABG pO2 ABG pO2 ABG HCO3 ABG Base Excess ABG Hemoglobin VBG pH Oxyhemoglobin Sodium Potassium Chloride Carbon Dioxide BUN Creatinine Glucose POC Glucose 281 H 239 H 195 H Lactic Acid Calcium AST ALT Alkaline Phosphatase CK-MB (CK-2) CK-MB (CK-2) Rel Index Total Protein Albumin TSH Urine WBC (Auto) Salicylates 03/18/17 03/19/17 03/19/17 21:37 04:57 14:23 WBC RBC Hgb Hct MCV MCH RDW Plt Count Lymph % (Auto) [place] % (Auto) Eos % (Auto) [place] # Seg Neutrophils % Seg Neuts % (Manual) Lymphocytes % (Manual) Seg Neutrophils # Seg Neutrophils # Man Lymphocytes # (Manual) APTT POC ABG pH ABG pH POC ABG pCO2 POC ABG pO2 ABG pO2 ABG HCO3 ABG Base Excess ABG Hemoglobin VBG pH Oxyhemoglobin Sodium Potassium Chloride Carbon Dioxide BUN Creatinine Glucose POC Glucose 227 H 205 H 277 H Lactic Acid Calcium AST ALT Alkaline Phosphatase CK-MB (CK-2) CK-MB (CK-2) Rel Index Total Protein Albumin TSH Urine WBC (Auto) Salicylates 03/19/17 03/19/17 03/20/17 20:31 21:47 04:55 WBC RBC Hgb Hct MCV MCH RDW Plt Count Lymph % (Auto) [place] % (Auto) Eos % (Auto) [place] # Seg Neutrophils % Seg Neuts % (Manual) Lymphocytes % (Manual) Seg Neutrophils # Seg Neutrophils # Man Lymphocytes # (Manual) APTT POC ABG pH ABG pH POC ABG pCO2 POC ABG pO2 ABG pO2 ABG HCO3 ABG Base Excess ABG Hemoglobin VBG pH Oxyhemoglobin Sodium Potassium Chloride Carbon Dioxide BUN Creatinine Glucose POC Glucose 256 H 270 H 202 H Lactic Acid Calcium AST ALT Alkaline Phosphatase CK-MB (CK-2) CK-MB (CK-2) Rel Index Total Protein Albumin TSH Urine WBC (Auto) Salicylates 03/20/17 03/20/17 03/21/17 14:09 21:40 05:09 WBC RBC Hgb Hct MCV MCH RDW Plt Count Lymph % (Auto) [place] % (Auto) Eos % (Auto) [place] # Seg Neutrophils % Seg Neuts % (Manual) Lymphocytes % (Manual) Seg Neutrophils # Seg Neutrophils # Man Lymphocytes # (Manual) APTT POC ABG pH ABG pH POC ABG pCO2 POC ABG pO2 ABG pO2 ABG HCO3 ABG Base Excess ABG Hemoglobin VBG pH Oxyhemoglobin Sodium Potassium Chloride Carbon Dioxide BUN Creatinine Glucose POC Glucose 200 H 214 H 233 H Lactic Acid Calcium AST ALT Alkaline Phosphatase CK-MB (CK-2) CK-MB (CK-2) Rel Index Total Protein Albumin TSH Urine WBC (Auto) Salicylates 03/21/17 03/21/17 03/22/17 14:06 21:26 05:43 WBC RBC Hgb Hct MCV MCH RDW Plt Count Lymph % (Auto) [place] % (Auto) Eos % (Auto) [place] # Seg Neutrophils % Seg Neuts % (Manual) Lymphocytes % (Manual) Seg Neutrophils # Seg Neutrophils # Man Lymphocytes # (Manual) APTT POC ABG pH ABG pH POC ABG pCO2 POC ABG pO2 ABG pO2 ABG HCO3 ABG Base Excess ABG Hemoglobin VBG pH Oxyhemoglobin Sodium Potassium Chloride Carbon Dioxide BUN Creatinine Glucose POC Glucose 250 H 155 H 251 H Lactic Acid Calcium AST ALT Alkaline Phosphatase CK-MB (CK-2) CK-MB (CK-2) Rel Index Total Protein Albumin TSH Urine WBC (Auto) Salicylates 03/22/17 03/22/17 03/23/17 13:46 21:16 00:23 WBC RBC Hgb Hct MCV MCH RDW Plt Count Lymph % (Auto) [place] % (Auto) Eos % (Auto) [place] # Seg Neutrophils % Seg Neuts % (Manual) Lymphocytes % (Manual) Seg Neutrophils # Seg Neutrophils # Man Lymphocytes # (Manual) APTT POC ABG pH ABG pH POC ABG pCO2 POC ABG pO2 ABG pO2 ABG HCO3 ABG Base Excess ABG Hemoglobin VBG pH Oxyhemoglobin Sodium Potassium Chloride Carbon Dioxide BUN Creatinine Glucose POC Glucose 269 H 197 H 126 H Lactic Acid Calcium AST ALT Alkaline Phosphatase CK-MB (CK-2) CK-MB (CK-2) Rel Index Total Protein Albumin TSH Urine WBC (Auto) Salicylates 03/23/17 03/23/17 03/23/17 05:39 14:06 21:39 WBC RBC Hgb Hct MCV MCH RDW Plt Count Lymph % (Auto) [place] % (Auto) Eos % (Auto) [place] # Seg Neutrophils % Seg Neuts % (Manual) Lymphocytes % (Manual) Seg Neutrophils # Seg Neutrophils # Man Lymphocytes # (Manual) APTT POC ABG pH ABG pH POC ABG pCO2 POC ABG pO2 ABG pO2 ABG HCO3 ABG Base Excess ABG Hemoglobin VBG pH Oxyhemoglobin Sodium Potassium Chloride Carbon Dioxide BUN Creatinine Glucose POC Glucose 234 H 241 H 248 H Lactic Acid Calcium AST ALT Alkaline Phosphatase CK-MB (CK-2) CK-MB (CK-2) Rel Index Total Protein Albumin TSH Urine WBC (Auto) Salicylates 03/24/17 03/24/17 03/25/17 05:06 21:46 05:38 WBC RBC Hgb Hct MCV MCH RDW Plt Count Lymph % (Auto) [place] % (Auto) Eos % (Auto) [place] # Seg Neutrophils % Seg Neuts % (Manual) Lymphocytes % (Manual) Seg Neutrophils # Seg Neutrophils # Man Lymphocytes # (Manual) APTT POC ABG pH ABG pH POC ABG pCO2 POC ABG pO2 ABG pO2 ABG HCO3 ABG Base Excess ABG Hemoglobin VBG pH Oxyhemoglobin Sodium Potassium Chloride Carbon Dioxide BUN Creatinine Glucose POC Glucose 232 H 276 H 242 H Lactic Acid Calcium AST ALT Alkaline Phosphatase CK-MB (CK-2) CK-MB (CK-2) Rel Index Total Protein Albumin TSH Urine WBC (Auto) Salicylates 03/25/17 03/25/17 03/26/17 14:30 23:14 13:53 WBC RBC Hgb Hct MCV MCH RDW Plt Count Lymph % (Auto) [place] % (Auto) Eos % (Auto) [place] # Seg Neutrophils % Seg Neuts % (Manual) Lymphocytes % (Manual) Seg Neutrophils # Seg Neutrophils # Man Lymphocytes # (Manual) APTT POC ABG pH ABG pH POC ABG pCO2 POC ABG pO2 ABG pO2 ABG HCO3 ABG Base Excess ABG Hemoglobin VBG pH Oxyhemoglobin Sodium Potassium Chloride Carbon Dioxide BUN Creatinine Glucose POC Glucose 246 H 208 H 195 H Lactic Acid Calcium AST ALT Alkaline Phosphatase CK-MB (CK-2) CK-MB (CK-2) Rel Index Total Protein Albumin TSH Urine WBC (Auto) Salicylates 03/26/17 03/27/17 03/27/17 21:58 05:18 14:57 WBC RBC Hgb Hct MCV MCH RDW Plt Count Lymph % (Auto) [place] % (Auto) Eos % (Auto) [place] # Seg Neutrophils % Seg Neuts % (Manual) Lymphocytes % (Manual) Seg Neutrophils # Seg Neutrophils # Man Lymphocytes # (Manual) APTT POC ABG pH ABG pH POC ABG pCO2 POC ABG pO2 ABG pO2 ABG HCO3 ABG Base Excess ABG Hemoglobin VBG pH Oxyhemoglobin Sodium Potassium Chloride Carbon Dioxide BUN Creatinine Glucose POC Glucose 241 H 199 H 269 H Lactic Acid Calcium AST ALT Alkaline Phosphatase CK-MB (CK-2) CK-MB (CK-2) Rel Index Total Protein Albumin TSH Urine WBC (Auto) Salicylates 03/27/17 03/28/17 03/28/17 21:33 13:52 21:29 WBC RBC Hgb Hct MCV MCH RDW Plt Count Lymph % (Auto) [place] % (Auto) Eos % (Auto) [place] # Seg Neutrophils % Seg Neuts % (Manual) Lymphocytes % (Manual) Seg Neutrophils # Seg Neutrophils # Man Lymphocytes # (Manual) APTT POC ABG pH ABG pH POC ABG pCO2 POC ABG pO2 ABG pO2 ABG HCO3 ABG Base Excess ABG Hemoglobin VBG pH Oxyhemoglobin Sodium Potassium Chloride Carbon Dioxide BUN Creatinine Glucose POC Glucose 214 H 243 H 286 H Lactic Acid Calcium AST ALT Alkaline Phosphatase CK-MB (CK-2) CK-MB (CK-2) Rel Index Total Protein Albumin TSH Urine WBC (Auto) Salicylates 03/29/17 03/29/17 03/29/17 04:32 04:32 13:58 WBC RBC Hgb 10.6 L Hct 32.9 L MCV 78 L MCH 25 L RDW 17.6 H Plt Count Lymph % (Auto) 38.0 H [place] % (Auto) 9.7 H Eos % (Auto) [place] # Seg Neutrophils % Seg Neuts % (Manual) Lymphocytes % (Manual) Seg Neutrophils # Seg Neutrophils # Man Lymphocytes # (Manual) APTT POC ABG pH ABG pH POC ABG pCO2 POC ABG pO2 ABG pO2 ABG HCO3 ABG Base Excess ABG Hemoglobin VBG pH Oxyhemoglobin Sodium 132 L Potassium Chloride 94.0 L Carbon Dioxide BUN 28 H Creatinine 0.5 L Glucose 236 H POC Glucose 171 H Lactic Acid Calcium AST ALT 71 H Alkaline Phosphatase 391 H CK-MB (CK-2) CK-MB (CK-2) Rel Index Total Protein 8.3 H Albumin 2.9 L TSH Urine WBC (Auto) Salicylates 03/29/17 03/30/17 03/30/17 20:59 06:07 11:52 WBC RBC Hgb Hct MCV MCH RDW Plt Count Lymph % (Auto) [place] % (Auto) Eos % (Auto) [place] # Seg Neutrophils % Seg Neuts % (Manual) Lymphocytes % (Manual) Seg Neutrophils # Seg Neutrophils # Man Lymphocytes # (Manual) APTT POC ABG pH ABG pH POC ABG pCO2 POC ABG pO2 ABG pO2 ABG HCO3 ABG Base Excess ABG Hemoglobin VBG pH Oxyhemoglobin Sodium Potassium Chloride Carbon Dioxide BUN Creatinine Glucose POC Glucose 215 H 259 H 197 H Lactic Acid Calcium AST ALT Alkaline Phosphatase CK-MB (CK-2) CK-MB (CK-2) Rel Index Total Protein Albumin TSH Urine WBC (Auto) Salicylates 03/30/17 03/31/17 03/31/17 21:34 05:42 14:34 WBC RBC Hgb Hct MCV MCH RDW Plt Count Lymph % (Auto) [place] % (Auto) Eos % (Auto) [place] # Seg Neutrophils % Seg Neuts % (Manual) Lymphocytes % (Manual) Seg Neutrophils # Seg Neutrophils # Man Lymphocytes # (Manual) APTT POC ABG pH ABG pH POC ABG pCO2 POC ABG pO2 ABG pO2 ABG HCO3 ABG Base Excess ABG Hemoglobin VBG pH Oxyhemoglobin Sodium Potassium Chloride Carbon Dioxide BUN Creatinine Glucose POC Glucose 207 H 184 H 213 H Lactic Acid Calcium AST ALT Alkaline Phosphatase CK-MB (CK-2) CK-MB (CK-2) Rel Index Total Protein Albumin TSH Urine WBC (Auto) Salicylates 03/31/17 04/01/17 04/01/17 21:32 05:53 13:48 WBC RBC Hgb Hct MCV MCH RDW Plt Count Lymph % (Auto) [place] % (Auto) Eos % (Auto) [place] # Seg Neutrophils % Seg Neuts % (Manual) Lymphocytes % (Manual) Seg Neutrophils # Seg Neutrophils # Man Lymphocytes # (Manual) APTT POC ABG pH ABG pH POC ABG pCO2 POC ABG pO2 ABG pO2 ABG HCO3 ABG Base Excess ABG Hemoglobin VBG pH Oxyhemoglobin Sodium Potassium Chloride Carbon Dioxide BUN Creatinine Glucose POC Glucose 249 H 225 H 256 H Lactic Acid Calcium AST ALT Alkaline Phosphatase CK-MB (CK-2) CK-MB (CK-2) Rel Index Total Protein Albumin TSH Urine WBC (Auto) Salicylates 04/01/17 04/02/17 04/02/17 21:34 05:32 14:05 WBC RBC Hgb Hct MCV MCH RDW Plt Count Lymph % (Auto) [place] % (Auto) Eos % (Auto) [place] # Seg Neutrophils % Seg Neuts % (Manual) Lymphocytes % (Manual) Seg Neutrophils # Seg Neutrophils # Man Lymphocytes # (Manual) APTT POC ABG pH ABG pH POC ABG pCO2 POC ABG pO2 ABG pO2 ABG HCO3 ABG Base Excess ABG Hemoglobin VBG pH Oxyhemoglobin Sodium Potassium Chloride Carbon Dioxide BUN Creatinine Glucose POC Glucose 292 H 220 H 187 H Lactic Acid Calcium AST ALT Alkaline Phosphatase CK-MB (CK-2) CK-MB (CK-2) Rel Index Total Protein Albumin TSH Urine WBC (Auto) Salicylates 04/02/17 04/03/17 04/03/17 21:57 04:49 14:12 WBC RBC Hgb Hct MCV MCH RDW Plt Count Lymph % (Auto) [place] % (Auto) Eos % (Auto) [place] # Seg Neutrophils % Seg Neuts % (Manual) Lymphocytes % (Manual) Seg Neutrophils # Seg Neutrophils # Man Lymphocytes # (Manual) APTT POC ABG pH ABG pH POC ABG pCO2 POC ABG pO2 ABG pO2 ABG HCO3 ABG Base Excess ABG Hemoglobin VBG pH Oxyhemoglobin Sodium Potassium Chloride Carbon Dioxide BUN Creatinine Glucose POC Glucose 285 H 256 H 197 H Lactic Acid Calcium AST ALT Alkaline Phosphatase CK-MB (CK-2) CK-MB (CK-2) Rel Index Total Protein Albumin TSH Urine WBC (Auto) Salicylates 04/03/17 04/04/17 04/04/17 21:11 05:20 13:18 WBC RBC Hgb Hct MCV MCH RDW Plt Count Lymph % (Auto) [place] % (Auto) Eos % (Auto) [place] # Seg Neutrophils % Seg Neuts % (Manual) Lymphocytes % (Manual) Seg Neutrophils # Seg Neutrophils # Man Lymphocytes # (Manual) APTT POC ABG pH ABG pH POC ABG pCO2 POC ABG pO2 ABG pO2 ABG HCO3 ABG Base Excess ABG Hemoglobin VBG pH Oxyhemoglobin Sodium Potassium Chloride Carbon Dioxide BUN Creatinine Glucose POC Glucose 166 H 228 H 252 H Lactic Acid Calcium AST ALT Alkaline Phosphatase CK-MB (CK-2) CK-MB (CK-2) Rel Index Total Protein Albumin TSH Urine WBC (Auto) Salicylates 04/04/17 04/05/17 04/05/17 21:51 06:14 09:54 WBC RBC Hgb Hct MCV MCH RDW Plt Count Lymph % (Auto) [place] % (Auto) Eos % (Auto) [place] # Seg Neutrophils % Seg Neuts % (Manual) Lymphocytes % (Manual) Seg Neutrophils # Seg Neutrophils # Man Lymphocytes # (Manual) APTT POC ABG pH ABG pH POC ABG pCO2 POC ABG pO2 ABG pO2 ABG HCO3 ABG Base Excess ABG Hemoglobin VBG pH Oxyhemoglobin Sodium Potassium Chloride Carbon Dioxide BUN Creatinine Glucose POC Glucose 252 H 152 H 181 H Lactic Acid Calcium AST ALT Alkaline Phosphatase CK-MB (CK-2) CK-MB (CK-2) Rel Index Total Protein Albumin TSH Urine WBC (Auto) Salicylates 04/05/17 04/05/17 04/05/17 14:49 17:34 21:38 WBC RBC Hgb Hct MCV MCH RDW Plt Count Lymph % (Auto) [place] % (Auto) Eos % (Auto) [place] # Seg Neutrophils % Seg Neuts % (Manual) Lymphocytes % (Manual) Seg Neutrophils # Seg Neutrophils # Man Lymphocytes # (Manual) APTT POC ABG pH ABG pH POC ABG pCO2 POC ABG pO2 ABG pO2 ABG HCO3 ABG Base Excess ABG Hemoglobin VBG pH Oxyhemoglobin Sodium Potassium Chloride Carbon Dioxide BUN Creatinine Glucose POC Glucose 219 H 268 H 278 H Lactic Acid Calcium AST ALT Alkaline Phosphatase CK-MB (CK-2) CK-MB (CK-2) Rel Index Total Protein Albumin TSH Urine WBC (Auto) Salicylates 04/06/17 04/06/17 04/07/17 15:04 22:14 05:09 WBC RBC Hgb Hct MCV MCH RDW Plt Count Lymph % (Auto) [place] % (Auto) Eos % (Auto) [place] # Seg Neutrophils % Seg Neuts % (Manual) Lymphocytes % (Manual) Seg Neutrophils # Seg Neutrophils # Man Lymphocytes # (Manual) APTT POC ABG pH ABG pH POC ABG pCO2 POC ABG pO2 ABG pO2 ABG HCO3 ABG Base Excess ABG Hemoglobin VBG pH Oxyhemoglobin Sodium Potassium Chloride Carbon Dioxide BUN Creatinine Glucose POC Glucose 285 H 106 H 334 H Lactic Acid Calcium AST ALT Alkaline Phosphatase CK-MB (CK-2) CK-MB (CK-2) Rel Index Total Protein Albumin TSH Urine WBC (Auto) Salicylates 04/07/17 04/07/17 04/08/17 14:45 21:48 05:28 WBC RBC Hgb Hct MCV MCH RDW Plt Count Lymph % (Auto) [place] % (Auto) Eos % (Auto) [place] # Seg Neutrophils % Seg Neuts % (Manual) Lymphocytes % (Manual) Seg Neutrophils # Seg Neutrophils # Man Lymphocytes # (Manual) APTT POC ABG pH ABG pH POC ABG pCO2 POC ABG pO2 ABG pO2 ABG HCO3 ABG Base Excess ABG Hemoglobin VBG pH Oxyhemoglobin Sodium Potassium Chloride Carbon Dioxide BUN Creatinine Glucose POC Glucose 173 H 304 H 314 H Lactic Acid Calcium AST ALT Alkaline Phosphatase CK-MB (CK-2) CK-MB (CK-2) Rel Index Total Protein Albumin TSH Urine WBC (Auto) Salicylates 04/08/17 04/08/17 04/08/17 15:57 16:17 22:21 WBC RBC Hgb Hct MCV MCH RDW Plt Count Lymph % (Auto) [place] % (Auto) Eos % (Auto) [place] # Seg Neutrophils % Seg Neuts % (Manual) Lymphocytes % (Manual) Seg Neutrophils # Seg Neutrophils # Man Lymphocytes # (Manual) APTT POC ABG pH ABG pH POC ABG pCO2 POC ABG pO2 ABG pO2 ABG HCO3 ABG Base Excess ABG Hemoglobin VBG pH Oxyhemoglobin Sodium Potassium Chloride Carbon Dioxide BUN Creatinine Glucose POC Glucose 356 H 337 H 323 H Lactic Acid Calcium AST ALT Alkaline Phosphatase CK-MB (CK-2) CK-MB (CK-2) Rel Index Total Protein Albumin TSH Urine WBC (Auto) Salicylates 04/09/17 04/09/17 04/09/17 06:19 15:30 21:52 WBC RBC Hgb Hct MCV MCH RDW Plt Count Lymph % (Auto) [place] % (Auto) Eos % (Auto) [place] # Seg Neutrophils % Seg Neuts % (Manual) Lymphocytes % (Manual) Seg Neutrophils # Seg Neutrophils # Man Lymphocytes # (Manual) APTT POC ABG pH ABG pH POC ABG pCO2 POC ABG pO2 ABG pO2 ABG HCO3 ABG Base Excess ABG Hemoglobin VBG pH Oxyhemoglobin Sodium Potassium Chloride Carbon Dioxide BUN Creatinine Glucose POC Glucose 340 H 332 H 341 H Lactic Acid Calcium AST ALT Alkaline Phosphatase CK-MB (CK-2) CK-MB (CK-2) Rel Index Total Protein Albumin TSH Urine WBC (Auto) Salicylates 04/10/17 04/10/17 04/10/17 01:53 05:33 17:40 WBC RBC Hgb Hct MCV MCH RDW Plt Count Lymph % (Auto) [place] % (Auto) Eos % (Auto) [place] # Seg Neutrophils % Seg Neuts % (Manual) Lymphocytes % (Manual) Seg Neutrophils # Seg Neutrophils # Man Lymphocytes # (Manual) APTT POC ABG pH ABG pH POC ABG pCO2 POC ABG pO2 ABG pO2 ABG HCO3 ABG Base Excess ABG Hemoglobin VBG pH Oxyhemoglobin Sodium Potassium Chloride Carbon Dioxide BUN Creatinine Glucose POC Glucose 261 H 277 H 304 H Lactic Acid Calcium AST ALT Alkaline Phosphatase CK-MB (CK-2) CK-MB (CK-2) Rel Index Total Protein Albumin TSH Urine WBC (Auto) Salicylates 04/10/17 04/11/17 04/11/17 21:29 05:28 14:02 WBC RBC Hgb Hct MCV MCH RDW Plt Count Lymph % (Auto) [place] % (Auto) Eos % (Auto) [place] # Seg Neutrophils % Seg Neuts % (Manual) Lymphocytes % (Manual) Seg Neutrophils # Seg Neutrophils # Man Lymphocytes # (Manual) APTT POC ABG pH ABG pH POC ABG pCO2 POC ABG pO2 ABG pO2 ABG HCO3 ABG Base Excess ABG Hemoglobin VBG pH Oxyhemoglobin Sodium Potassium Chloride Carbon Dioxide BUN Creatinine Glucose POC Glucose 361 H 204 H 236 H Lactic Acid Calcium AST ALT Alkaline Phosphatase CK-MB (CK-2) CK-MB (CK-2) Rel Index Total Protein Albumin TSH Urine WBC (Auto) Salicylates 04/11/17 04/12/17 04/12/17 21:43 05:00 11:53 WBC RBC Hgb Hct MCV MCH RDW Plt Count Lymph % (Auto) [place] % (Auto) Eos % (Auto) [place] # Seg Neutrophils % Seg Neuts % (Manual) Lymphocytes % (Manual) Seg Neutrophils # Seg Neutrophils # Man Lymphocytes # (Manual) APTT POC ABG pH ABG pH POC ABG pCO2 POC ABG pO2 ABG pO2 ABG HCO3 ABG Base Excess ABG Hemoglobin VBG pH Oxyhemoglobin Sodium Potassium Chloride Carbon Dioxide BUN Creatinine Glucose POC Glucose 287 H 294 H 265 H Lactic Acid Calcium AST ALT Alkaline Phosphatase CK-MB (CK-2) CK-MB (CK-2) Rel Index Total Protein Albumin TSH Urine WBC (Auto) Salicylates 04/12/17 04/12/17 04/13/17 21:21 23:44 06:05 WBC RBC Hgb Hct MCV MCH RDW Plt Count Lymph % (Auto) [place] % (Auto) Eos % (Auto) [place] # Seg Neutrophils % Seg Neuts % (Manual) Lymphocytes % (Manual) Seg Neutrophils # Seg Neutrophils # Man Lymphocytes # (Manual) APTT POC ABG pH ABG pH POC ABG pCO2 POC ABG pO2 ABG pO2 ABG HCO3 ABG Base Excess ABG Hemoglobin VBG pH Oxyhemoglobin Sodium Potassium Chloride Carbon Dioxide BUN Creatinine Glucose POC Glucose 289 H 348 H 326 H Lactic Acid Calcium AST ALT Alkaline Phosphatase CK-MB (CK-2) CK-MB (CK-2) Rel Index Total Protein Albumin TSH Urine WBC (Auto) Salicylates 04/13/17 04/13/17 04/14/17 13:54 21:15 05:49 WBC RBC Hgb Hct MCV MCH RDW Plt Count Lymph % (Auto) [place] % (Auto) Eos % (Auto) [place] # Seg Neutrophils % Seg Neuts % (Manual) Lymphocytes % (Manual) Seg Neutrophils # Seg Neutrophils # Man Lymphocytes # (Manual) APTT POC ABG pH ABG pH POC ABG pCO2 POC ABG pO2 ABG pO2 ABG HCO3 ABG Base Excess ABG Hemoglobin VBG pH Oxyhemoglobin Sodium Potassium Chloride Carbon Dioxide BUN Creatinine Glucose POC Glucose 326 H 263 H 319 H Lactic Acid Calcium AST ALT Alkaline Phosphatase CK-MB (CK-2) CK-MB (CK-2) Rel Index Total Protein Albumin TSH Urine WBC (Auto) Salicylates 04/14/17 04/14/17 04/15/17 13:26 23:13 14:24 WBC RBC Hgb Hct MCV MCH RDW Plt Count Lymph % (Auto) [place] % (Auto) Eos % (Auto) [place] # Seg Neutrophils % Seg Neuts % (Manual) Lymphocytes % (Manual) Seg Neutrophils # Seg Neutrophils # Man Lymphocytes # (Manual) APTT POC ABG pH ABG pH POC ABG pCO2 POC ABG pO2 ABG pO2 ABG HCO3 ABG Base Excess ABG Hemoglobin VBG pH Oxyhemoglobin Sodium Potassium Chloride Carbon Dioxide BUN Creatinine Glucose POC Glucose 207 H 365 H 308 H Lactic Acid Calcium AST ALT Alkaline Phosphatase CK-MB (CK-2) CK-MB (CK-2) Rel Index Total Protein Albumin TSH Urine WBC (Auto) Salicylates 04/15/17 04/15/17 04/15/17 21:00 22:18 23:12 WBC RBC Hgb Hct MCV MCH RDW Plt Count Lymph % (Auto) [place] % (Auto) Eos % (Auto) [place] # Seg Neutrophils % Seg Neuts % (Manual) Lymphocytes % (Manual) Seg Neutrophils # Seg Neutrophils # Man Lymphocytes # (Manual) APTT POC ABG pH ABG pH POC ABG pCO2 POC ABG pO2 ABG pO2 ABG HCO3 ABG Base Excess ABG Hemoglobin VBG pH Oxyhemoglobin Sodium Potassium Chloride Carbon Dioxide BUN Creatinine Glucose POC Glucose 407 H 287 H 325 H Lactic Acid Calcium AST ALT Alkaline Phosphatase CK-MB (CK-2) CK-MB (CK-2) Rel Index Total Protein Albumin TSH Urine WBC (Auto) Salicylates 04/16/17 04/16/17 04/16/17 05:30 10:07 14:26 WBC RBC Hgb Hct MCV MCH RDW Plt Count Lymph % (Auto) [place] % (Auto) Eos % (Auto) [place] # Seg Neutrophils % Seg Neuts % (Manual) Lymphocytes % (Manual) Seg Neutrophils # Seg Neutrophils # Man Lymphocytes # (Manual) APTT POC ABG pH ABG pH POC ABG pCO2 POC ABG pO2 ABG pO2 ABG HCO3 ABG Base Excess ABG Hemoglobin VBG pH Oxyhemoglobin Sodium Potassium Chloride Carbon Dioxide BUN Creatinine Glucose POC Glucose 304 H 217 H 344 H Lactic Acid Calcium AST ALT Alkaline Phosphatase CK-MB (CK-2) CK-MB (CK-2) Rel Index Total Protein Albumin TSH Urine WBC (Auto) Salicylates 04/16/17 04/17/17 04/17/17 21:25 05:12 14:19 WBC RBC Hgb Hct MCV MCH RDW Plt Count Lymph % (Auto) [place] % (Auto) Eos % (Auto) [place] # Seg Neutrophils % Seg Neuts % (Manual) Lymphocytes % (Manual) Seg Neutrophils # Seg Neutrophils # Man Lymphocytes # (Manual) APTT POC ABG pH ABG pH POC ABG pCO2 POC ABG pO2 ABG pO2 ABG HCO3 ABG Base Excess ABG Hemoglobin VBG pH Oxyhemoglobin Sodium Potassium Chloride Carbon Dioxide BUN Creatinine Glucose POC Glucose 305 H 233 H 324 H Lactic Acid Calcium AST ALT Alkaline Phosphatase CK-MB (CK-2) CK-MB (CK-2) Rel Index Total Protein Albumin TSH Urine WBC (Auto) Salicylates 04/17/17 04/18/17 04/18/17 21:42 06:21 14:08 WBC RBC Hgb Hct MCV MCH RDW Plt Count Lymph % (Auto) [place] % (Auto) Eos % (Auto) [place] # Seg Neutrophils % Seg Neuts % (Manual) Lymphocytes % (Manual) Seg Neutrophils # Seg Neutrophils # Man Lymphocytes # (Manual) APTT POC ABG pH ABG pH POC ABG pCO2 POC ABG pO2 ABG pO2 ABG HCO3 ABG Base Excess ABG Hemoglobin VBG pH Oxyhemoglobin Sodium Potassium Chloride Carbon Dioxide BUN Creatinine Glucose POC Glucose 270 H 308 H 290 H Lactic Acid Calcium AST ALT Alkaline Phosphatase CK-MB (CK-2) CK-MB (CK-2) Rel Index Total Protein Albumin TSH Urine WBC (Auto) Salicylates 04/18/17 04/19/17 04/19/17 21:50 05:20 13:59 WBC RBC Hgb Hct MCV MCH RDW Plt Count Lymph % (Auto) [place] % (Auto) Eos % (Auto) [place] # Seg Neutrophils % Seg Neuts % (Manual) Lymphocytes % (Manual) Seg Neutrophils # Seg Neutrophils # Man Lymphocytes # (Manual) APTT POC ABG pH ABG pH POC ABG pCO2 POC ABG pO2 ABG pO2 ABG HCO3 ABG Base Excess ABG Hemoglobin VBG pH Oxyhemoglobin Sodium Potassium Chloride Carbon Dioxide BUN Creatinine Glucose POC Glucose 167 H 372 H 321 H Lactic Acid Calcium AST ALT Alkaline Phosphatase CK-MB (CK-2) CK-MB (CK-2) Rel Index Total Protein Albumin TSH Urine WBC (Auto) Salicylates 04/19/17 04/20/17 04/20/17 21:16 14:18 21:34 WBC RBC Hgb Hct MCV MCH RDW Plt Count Lymph % (Auto) [place] % (Auto) Eos % (Auto) [place] # Seg Neutrophils % Seg Neuts % (Manual) Lymphocytes % (Manual) Seg Neutrophils # Seg Neutrophils # Man Lymphocytes # (Manual) APTT POC ABG pH ABG pH POC ABG pCO2 POC ABG pO2 ABG pO2 ABG HCO3 ABG Base Excess ABG Hemoglobin VBG pH Oxyhemoglobin Sodium Potassium Chloride Carbon Dioxide BUN Creatinine Glucose POC Glucose 182 H 218 H 121 H Lactic Acid Calcium AST ALT Alkaline Phosphatase CK-MB (CK-2) CK-MB (CK-2) Rel Index Total Protein Albumin TSH Urine WBC (Auto) Salicylates 04/21/17 04/21/17 04/21/17 00:08 05:16 12:41 WBC RBC Hgb Hct MCV MCH RDW Plt Count Lymph % (Auto) [place] % (Auto) Eos % (Auto) [place] # Seg Neutrophils % Seg Neuts % (Manual) Lymphocytes % (Manual) Seg Neutrophils # Seg Neutrophils # Man Lymphocytes # (Manual) APTT POC ABG pH ABG pH POC ABG pCO2 POC ABG pO2 ABG pO2 ABG HCO3 ABG Base Excess ABG Hemoglobin VBG pH Oxyhemoglobin Sodium Potassium Chloride Carbon Dioxide BUN Creatinine Glucose POC Glucose 128 H 120 H 216 H Lactic Acid Calcium AST ALT Alkaline Phosphatase CK-MB (CK-2) CK-MB (CK-2) Rel Index Total Protein Albumin TSH Urine WBC (Auto) Salicylates 04/21/17 04/22/17 04/22/17 23:40 14:12 23:38 WBC RBC Hgb Hct MCV MCH RDW Plt Count Lymph % (Auto) [place] % (Auto) Eos % (Auto) [place] # Seg Neutrophils % Seg Neuts % (Manual) Lymphocytes % (Manual) Seg Neutrophils # Seg Neutrophils # Man Lymphocytes # (Manual) APTT POC ABG pH ABG pH POC ABG pCO2 POC ABG pO2 ABG pO2 ABG HCO3 ABG Base Excess ABG Hemoglobin VBG pH Oxyhemoglobin Sodium Potassium Chloride Carbon Dioxide BUN Creatinine Glucose POC Glucose 157 H 242 H 117 H Lactic Acid Calcium AST ALT Alkaline Phosphatase CK-MB (CK-2) CK-MB (CK-2) Rel Index Total Protein Albumin TSH Urine WBC (Auto) Salicylates 04/23/17 04/23/17 04/24/17 05:18 14:01 03:24 WBC RBC Hgb Hct MCV MCH RDW Plt Count Lymph % (Auto) [place] % (Auto) Eos % (Auto) [place] # Seg Neutrophils % Seg Neuts % (Manual) Lymphocytes % (Manual) Seg Neutrophils # Seg Neutrophils # Man Lymphocytes # (Manual) APTT POC ABG pH ABG pH POC ABG pCO2 POC ABG pO2 ABG pO2 ABG HCO3 ABG Base Excess ABG Hemoglobin VBG pH Oxyhemoglobin Sodium Potassium Chloride Carbon Dioxide BUN Creatinine Glucose POC Glucose 163 H 57 L 177 H Lactic Acid Calcium AST ALT Alkaline Phosphatase CK-MB (CK-2) CK-MB (CK-2) Rel Index Total Protein Albumin TSH Urine WBC (Auto) Salicylates 04/24/17 04/24/17 04/24/17 04:00 04:00 06:33 WBC RBC Hgb 9.9 L Hct 30.0 L MCV 79 L MCH 26 L RDW 17.1 H Plt Count 625 H Lymph % (Auto) [place] % (Auto) 8.4 H Eos % (Auto) [place] # Seg Neutrophils % Seg Neuts % (Manual) Lymphocytes % (Manual) Seg Neutrophils # Seg Neutrophils # Man Lymphocytes # (Manual) APTT POC ABG pH ABG pH POC ABG pCO2 POC ABG pO2 ABG pO2 ABG HCO3 ABG Base Excess ABG Hemoglobin VBG pH Oxyhemoglobin Sodium 136 L Potassium Chloride 94.9 L Carbon Dioxide BUN 40 H Creatinine 0.6 L Glucose 176 H POC Glucose 230 H Lactic Acid Calcium AST 67 H ALT Alkaline Phosphatase 294 H CK-MB (CK-2) CK-MB (CK-2) Rel Index Total Protein 9.0 H Albumin 2.5 L TSH Urine WBC (Auto) Salicylates 04/24/17 04/25/17 04/25/17 13:50 00:22 02:55 WBC RBC 3.54 L Hgb 9.0 L Hct 27.9 L MCV 79 L MCH 26 L RDW 17.5 H Plt Count 574 H Lymph % (Auto) [place] % (Auto) 10.4 H Eos % (Auto) [place] # 1.0 H Seg Neutrophils % Seg Neuts % (Manual) Lymphocytes % (Manual) Seg Neutrophils # Seg Neutrophils # Man Lymphocytes # (Manual) APTT POC ABG pH ABG pH POC ABG pCO2 POC ABG pO2 ABG pO2 ABG HCO3 ABG Base Excess ABG Hemoglobin VBG pH Oxyhemoglobin Sodium Potassium Chloride Carbon Dioxide BUN Creatinine Glucose POC Glucose 116 H < 40 L Lactic Acid Calcium AST ALT Alkaline Phosphatase CK-MB (CK-2) CK-MB (CK-2) Rel Index Total Protein Albumin TSH Urine WBC (Auto) Salicylates 04/25/17 04/25/17 04/25/17 02:55 11:15 18:36 WBC RBC Hgb Hct MCV MCH RDW Plt Count Lymph % (Auto) [place] % (Auto) Eos % (Auto) [place] # Seg Neutrophils % Seg Neuts % (Manual) Lymphocytes % (Manual) Seg Neutrophils # Seg Neutrophils # Man Lymphocytes # (Manual) APTT POC ABG pH ABG pH POC ABG pCO2 POC ABG pO2 ABG pO2 ABG HCO3 ABG Base Excess ABG Hemoglobin VBG pH Oxyhemoglobin Sodium Potassium Chloride 96.2 L Carbon Dioxide BUN 39 H Creatinine 0.7 L Glucose 125 H POC Glucose 227 H 280 H Lactic Acid Calcium AST ALT Alkaline Phosphatase 247 H CK-MB (CK-2) CK-MB (CK-2) Rel Index Total Protein Albumin 2.7 L TSH Urine WBC (Auto) Salicylates 04/25/17 04/26/17 04/26/17 21:49 06:53 07:27 WBC RBC 3.61 L Hgb 9.1 L Hct 28.1 L MCV 78 L MCH 25 L RDW 17.4 H Plt Count 594 H Lymph % (Auto) [place] % (Auto) 9.2 H Eos % (Auto) [place] # 1.0 H Seg Neutrophils % 70.6 H Seg Neuts % (Manual) Lymphocytes % (Manual) Seg Neutrophils # Seg Neutrophils # Man Lymphocytes # (Manual) APTT POC ABG pH ABG pH POC ABG pCO2 POC ABG pO2 ABG pO2 ABG HCO3 ABG Base Excess ABG Hemoglobin VBG pH Oxyhemoglobin Sodium Potassium Chloride Carbon Dioxide BUN Creatinine Glucose POC Glucose 192 H 60 L Lactic Acid Calcium AST ALT Alkaline Phosphatase CK-MB (CK-2) CK-MB (CK-2) Rel Index Total Protein Albumin TSH Urine WBC (Auto) Salicylates 04/26/17 04/26/17 04/26/17 07:27 07:28 13:32 WBC RBC Hgb Hct MCV MCH RDW Plt Count Lymph % (Auto) [place] % (Auto) Eos % (Auto) [place] # Seg Neutrophils % Seg Neuts % (Manual) Lymphocytes % (Manual) Seg Neutrophils # Seg Neutrophils # Man Lymphocytes # (Manual) APTT POC ABG pH ABG pH POC ABG pCO2 POC ABG pO2 ABG pO2 ABG HCO3 ABG Base Excess ABG Hemoglobin VBG pH Oxyhemoglobin Sodium Potassium Chloride 95.0 L Carbon Dioxide BUN 42 H Creatinine 0.7 L Glucose 172 H POC Glucose 190 H 168 H Lactic Acid Calcium AST 56 H ALT Alkaline Phosphatase 274 H CK-MB (CK-2) CK-MB (CK-2) Rel Index Total Protein 8.9 H Albumin 2.7 L TSH Urine WBC (Auto) Salicylates 04/26/17 04/27/17 04/27/17 23:36 05:10 05:10 WBC RBC 3.49 L Hgb 8.7 L Hct 27.0 L MCV 77 L MCH 25 L RDW 17.4 H Plt Count 558 H Lymph % (Auto) [place] % (Auto) 9.6 H Eos % (Auto) [place] # Seg Neutrophils % Seg Neuts % (Manual) Lymphocytes % (Manual) Seg Neutrophils # Seg Neutrophils # Man Lymphocytes # (Manual) APTT POC ABG pH ABG pH POC ABG pCO2 POC ABG pO2 ABG pO2 ABG HCO3 ABG Base Excess ABG Hemoglobin VBG pH Oxyhemoglobin Sodium 133 L Potassium Chloride 93.5 L Carbon Dioxide BUN 40 H Creatinine 0.7 L Glucose 179 H POC Glucose 204 H Lactic Acid Calcium AST 73 H ALT 58 H Alkaline Phosphatase 294 H CK-MB (CK-2) CK-MB (CK-2) Rel Index Total Protein 8.7 H Albumin 2.4 L TSH Urine WBC (Auto) Salicylates 04/27/17 04/27/17 04/27/17 05:45 14:08 23:46 WBC RBC Hgb Hct MCV MCH RDW Plt Count Lymph % (Auto) [place] % (Auto) Eos % (Auto) [place] # Seg Neutrophils % Seg Neuts % (Manual) Lymphocytes % (Manual) Seg Neutrophils # Seg Neutrophils # Man Lymphocytes # (Manual) APTT POC ABG pH ABG pH POC ABG pCO2 POC ABG pO2 ABG pO2 ABG HCO3 ABG Base Excess ABG Hemoglobin VBG pH Oxyhemoglobin Sodium Potassium Chloride Carbon Dioxide BUN Creatinine Glucose POC Glucose 200 H 206 H 207 H Lactic Acid Calcium AST ALT Alkaline Phosphatase CK-MB (CK-2) CK-MB (CK-2) Rel Index Total Protein Albumin TSH Urine WBC (Auto) Salicylates 04/28/17 04/28/17 04/28/17 04:48 04:53 05:10 WBC RBC 3.48 L Hgb 8.8 L Hct 26.7 L MCV 77 L MCH 25 L RDW 17.0 H Plt Count 515 H Lymph % (Auto) [place] % (Auto) 8.4 H Eos % (Auto) [place] # Seg Neutrophils % 70.6 H Seg Neuts % (Manual) Lymphocytes % (Manual) Seg Neutrophils # Seg Neutrophils # Man Lymphocytes # (Manual) APTT POC ABG pH ABG pH POC ABG pCO2 POC ABG pO2 ABG pO2 ABG HCO3 ABG Base Excess ABG Hemoglobin VBG pH Oxyhemoglobin Sodium Potassium Chloride Carbon Dioxide BUN Creatinine Glucose POC Glucose 43 L 41 L Lactic Acid Calcium AST ALT Alkaline Phosphatase CK-MB (CK-2) CK-MB (CK-2) Rel Index Total Protein Albumin TSH Urine WBC (Auto) Salicylates 04/28/17 05:10 WBC RBC Hgb Hct MCV MCH RDW Plt Count Lymph % (Auto) [place] % (Auto) Eos % (Auto) [place] # Seg Neutrophils % Seg Neuts % (Manual) Lymphocytes % (Manual) Seg Neutrophils # Seg Neutrophils # Man Lymphocytes # (Manual) APTT POC ABG pH ABG pH POC ABG pCO2 POC ABG pO2 ABG pO2 ABG HCO3 ABG Base Excess ABG Hemoglobin VBG pH Oxyhemoglobin Sodium 136 L Potassium Chloride 95.2 L Carbon Dioxide BUN 42 H Creatinine Glucose 63 L POC Glucose Lactic Acid Calcium AST 45 H ALT Alkaline Phosphatase 271 H CK-MB (CK-2) CK-MB (CK-2) Rel Index Total Protein 8.9 H Albumin 2.5 L TSH Urine WBC (Auto) Salicylates
[2017-04-28] MEDS: HEPARIN SUB-Q SCH ×2 (13:40→22:20)
[2017-04-28] MEDS: PEPCID PO SCH ×2 (13:40→22:21)
[2017-04-28] MEDS: VASELINE LIP THERAPY TP PRN (22:21)
[2017-04-29] MEDS: IMODIUM A-D PO PRN (00:57)
[2017-04-29] MEDS: VASELINE LIP THERAPY TP PRN (05:40)
[2017-04-29] MEDS: HumuLIN R SUB-Q SCH ×4 (06:48→22:50)
[2017-04-29] MEDS: SYNTHROID PO SCH (06:48)
[2017-04-29] MEDS: PEPCID PO SCH ×2 (09:30→22:34)
[2017-04-29] MEDS: HEPARIN SUB-Q SCH ×2 (09:30→22:35)
--- NOTE | 2017-04-29 10:35 | Progress Note ---
Assessment and Plan Assessment and plan: 51 YO Male with CKD,HTN, DM presents to ED after found down and unresponsive by his neighbor, who subsequently called EMS. Upon arrival, patient found unresponsive on the floor with a serum glucose of 21, patient has a known history of alcohol abuse and delirium tremens. The patient was administered D5 approximate 500 mls during transport without change in mental status/level of consciousness. Pt seen and evaluated in ED was was found to be unable to protect his airway. Pt intubated and placed on vent support. 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 very poor prognosis Metabolic encephalopathy: Supportive care Hypoglycemia/hypothermia, resolved Acute respiratory failure mechanical ventilator greater than 96 hours: wean as tolerated. Pulm. following Hyponatremia: corrected Hypothyroidism: On levothyroxine IDDM : continue with SSI Anemia of chronic disease. Hypertension: Controlled Cont supportive care and current medication. Monitor vitals. Not weaniable and tach not indicated as per Casting Trucker Patient is DNR- needs guardianship from the state to give consent for further management, as has no family to give consent. Very poor prognosis, History Interval history: Patient found unresponsive, diagnosed with hypoglycemia with brain injury, minimally responsive, no new events, Hospitalist Physical - Physical exam Narrative exam: Gen Appearance: Not in acute distress, malnourished, intubated HEENT: normocephalic, atraumatic Neck: supple, no JVD Lungs: clear to auscultation bilaterally, no crackles or wheezes Heart: S1 and S2 regular, no murmurs, rubs or gallop Abdomen: Soft , non tender, non distended, normal bowel sounds Extremity: No edema, clubbing or cyanosis Neuro : Intubated, miniml responsive,withdraws to pain, does not follow commands - Constitutional Vitals: Temp Pulse Resp BP Pulse Ox 98.7 F 72 13 140/81 100 04/29/17 08:00 04/29/17 07:27 04/29/17 06:00 04/29/17 07:27 04/29/17 08:15 Results - Labs CBC & Chem 7: 04/28/17 05:10 04/28/17 05:10 Labs: Laboratory Last Values WBC 9.3 K/mm3 (4.5-11.0) 04/28/17 05:10 RBC 3.48 M/mm3 (3.65-5.03) L 04/28/17 05:10 Hgb 8.8 gm/dl (11.8-15.2) L 04/28/17 05:10 Hct 26.7 % (35.5-45.6) L 04/28/17 05:10 MCV 77 fl (84-94) L 04/28/17 05:10 MCH 25 pg (28-32) L 04/28/17 05:10 MCHC 33 % (32-34) 04/28/17 05:10 RDW 17.0 % (13.2-15.2) H 04/28/17 05:10 Plt Count 515 K/mm3 (140-440) H 04/28/17 05:10 Lymph % (Auto) 18.4 % (13.4-35.0) 04/28/17 05:10 [place] % (Auto) 8.4 % (0.0-7.3) H 04/28/17 05:10 Eos % (Auto) 1.8 % (0.0-4.3) 04/28/17 05:10 Baso % (Auto) 0.8 % (0.0-1.8) 04/28/17 05:10 Lymph # 1.7 K/mm3 (1.2-5.4) 04/28/17 05:10 [place] # 0.8 K/mm3 (0.0-0.8) 04/28/17 05:10 Eos # 0.2 K/mm3 (0.0-0.4) 04/28/17 05:10 Baso # 0.1 K/mm3 (0.0-0.1) 04/28/17 05:10 Add Manual Diff Complete 01/10/17 04:30 Total Counted 100 01/10/17 04:30 Seg Neutrophils % 70.6 % (40.0-70.0) H 04/28/17 05:10 Seg Neuts % (Manual) 88.0 % (40.0-70.0) H 01/10/17 04:30 Band Neutrophils % 7.0 % 01/10/17 04:30 Lymphocytes % (Manual) 4.0 % (13.4-35.0) L 01/10/17 04:30 Reactive Lymphs % (Man) 0 % 01/10/17 04:30 Monocytes % (Manual) 1.0 % (0.0-7.3) 01/10/17 04:30 Eosinophils % (Manual) 0 % (0.0-4.3) 01/10/17 04:30 Basophils % (Manual) 0 % (0.0-1.8) 01/10/17 04:30 Metamyelocytes % 0 % 01/10/17 04:30 Myelocytes % 0 % 01/10/17 04:30 Promyelocytes % 0 % 01/10/17 04:30 Blast Cells % 0 % 01/10/17 04:30 Nucleated RBC % Not Reportable 01/10/17 04:30 Seg Neutrophils # 6.6 K/mm3 (1.8-7.7) 04/28/17 05:10 Seg Neutrophils # Man 21.2 K/mm3 (1.8-7.7) H 01/10/17 04:30 Band Neutrophils # 1.7 K/mm3 01/10/17 04:30 Lymphocytes # (Manual) 1.0 K/mm3 (1.2-5.4) L 01/10/17 04:30 Abs React Lymphs (Man) 0.0 K/mm3 01/10/17 04:30 Monocytes # (Manual) 0.2 K/mm3 (0.0-0.8) 01/10/17 04:30 Eosinophils # (Manual) 0.0 K/mm3 (0.0-0.4) 01/10/17 04:30 Basophils # (Manual) 0.0 K/mm3 (0.0-0.1) 01/10/17 04:30 Metamyelocytes # 0.0 K/mm3 01/10/17 04:30 Myelocytes # 0.0 K/mm3 01/10/17 04:30 Promyelocytes # 0.0 K/mm3 01/10/17 04:30 Blast Cells # 0.0 K/mm3 01/10/17 04:30 WBC Morphology Not Reportable 01/10/17 04:30 Hypersegmented Neuts Not Reportable 01/10/17 04:30 Hyposegmented Neuts Not Reportable 01/10/17 04:30 Hypogranular Neuts Not Reportable 01/10/17 04:30 Smudge Cells Not Reportable 01/10/17 04:30 Toxic Granulation Not Reportable 01/10/17 04:30 Toxic Vacuolation Not Reportable 01/10/17 04:30 Dohle Bodies Not Reportable 01/10/17 04:30 Pelger-Huet Anomaly Not Reportable 01/10/17 04:30 [place] Rods Not Reportable 01/10/17 04:30 Platelet Estimate Consistent w auto 01/10/17 04:30 Clumped Platelets Not Reportable 01/10/17 04:30 Plt Clumps, EDTA Not Reportable 01/10/17 04:30 Large Platelets Not Reportable 01/10/17 04:30 Giant Platelets Not Reportable 01/10/17 04:30 Platelet Satelliting Not Reportable 01/10/17 04:30 Plt Morphology Comment Not Reportable 01/10/17 04:30 RBC Morphology Not Reportable 01/10/17 04:30 Dimorphic RBCs Not Reportable 01/10/17 04:30 Polychromasia Not Reportable 01/10/17 04:30 Hypochromasia 1+ 01/10/17 04:30 Poikilocytosis Not Reportable 01/10/17 04:30 Anisocytosis Not Reportable 01/10/17 04:30 Microcytosis Not Reportable 01/10/17 04:30 Macrocytosis Not Reportable 01/10/17 04:30 Spherocytes Not Reportable 01/10/17 04:30 Pappenheimer Bodies Not Reportable 01/10/17 04:30 Sickle Cells Not Reportable 01/10/17 04:30 Target Cells Not Reportable 01/10/17 04:30 Tear Drop Cells Not Reportable 01/10/17 04:30 Ovalocytes Not Reportable 01/10/17 04:30 Helmet Cells Not Reportable 01/10/17 04:30 [place] Bodies Not Reportable 01/10/17 04:30 [place] Rings Not Reportable 01/10/17 04:30 [place] Cells Not Reportable 01/10/17 04:30 Bite Cells Not Reportable 01/10/17 04:30 Crenated Cell Not Reportable 01/10/17 04:30 Elliptocytes Not Reportable 01/10/17 04:30 Acanthocytes (Spur) Not Reportable 01/10/17 04:30 Rouleaux Not Reportable 01/10/17 04:30 Hemoglobin C Crystals Not Reportable 01/10/17 04:30 Schistocytes Not Reportable 01/10/17 04:30 Malaria parasites Not Reportable 01/10/17 04:30 [place] Bodies Not Reportable 01/10/17 04:30 Hem Pathologist Commnt No 01/10/17 04:30 PT 14.1 Sec. (12.2-14.9) 01/17/17 04:10 INR 1.04 (0.87-1.13) 01/17/17 04:10 APTT 36.6 Sec. (24.2-36.6) 01/17/17 04:10 POC ABG pH 7.442 (7.35-7.45) 01/31/17 18:55 ABG pH 7.420 pH Units (7.350-7.450) 01/17/17 04:35 POC ABG pCO2 32.8 (35-45) L 01/31/17 18:55 ABG pCO2 34.5 mm Hg 01/17/17 04:35 POC ABG pO2 82 (80-105) 01/31/17 18:55 ABG pO2 160.3 mm Hg (80.0-90.0) H 01/17/17 04:35 POC ABG HCO3 22.4 01/31/17 18:55 ABG HCO3 21.9 mmol/L (20.0-26.0) 01/17/17 04:35 POC ABG Total CO2 23 01/31/17 18:55 POC ABG O2 Sat 97 01/31/17 18:55 ABG O2 Saturation 99.0 % (95.0-99.0) 01/17/17 04:35 ABG O2 Content 11.1 (0.0-44) 01/17/17 04:35 POC ABG Base Excess -2 01/31/17 18:55 ABG Base Excess -2.3 mmol/L (-2.0-3.0) L 01/17/17 04:35 ABG Hemoglobin 7.9 gm/dl (14.0-18.0) L 01/17/17 04:35 ABG Carboxyhemoglobin 1.5 % (0.0-5.0) 01/17/17 04:35 ABG Methemoglobin 0.5 % (0.0-1.5) 01/17/17 04:35 VBG pH 7.284 (7.320-7.420) L 01/09/17 10:16 Oxyhemoglobin 97.1 % (95.0-99.0) 01/17/17 04:35 FiO2 25 % 01/31/17 18:55 Sodium 136 mmol/L (137-145) L 04/28/17 05:10 Potassium 4.5 mmol/L (3.6-5.0) 04/28/17 05:10 Chloride 95.2 mmol/L (98-107) L 04/28/17 05:10 Carbon Dioxide 27 mmol/L (22-30) 04/28/17 05:10 Anion Gap 18 mmol/L 04/28/17 05:10 BUN 42 mg/dL (9-20) H 04/28/17 05:10 Creatinine 0.9 mg/dL (0.8-1.5) 04/28/17 05:10 Estimated GFR > 60 ml/min 04/28/17 05:10 BUN/Creatinine Ratio 47 % 04/28/17 05:10 Glucose 63 mg/dL (75-100) L 04/28/17 05:10 POC Glucose 254 (70-105) H 04/29/17 06:40 Lactic Acid 0.80 mmol/L (0.7-2.0) 01/30/17 11:49 Calcium 9.1 mg/dL (8.4-10.2) 04/28/17 05:10 Phosphorus 3.10 mg/dL (2.5-4.5) 03/29/17 04:32 Magnesium 1.90 mg/dL (1.7-2.3) 03/29/17 04:32 Total Bilirubin 0.50 mg/dL (0.1-1.2) 04/28/17 05:10 AST 45 units/L (5-40) H 04/28/17 05:10 ALT 42 units/L (7-56) 04/28/17 05:10 Alkaline Phosphatase 271 units/L (35-129) H 04/28/17 05:10 Ammonia 35.0 umol/L (25-60) 01/09/17 10:16 Total Creatine Kinase 135 units/L (55-170) 01/09/17 10:16 CK-MB (CK-2) 7.1 ng/mL (0.0-4.0) H 01/09/17 10:16 CK-MB (CK-2) Rel Index 5.2 (0-4) H 01/09/17 10:16 Troponin T < 0.010 ng/mL (0.00-0.029) 01/09/17 10:16 NT-Pro-B Natriuret Pep 602.9 pg/mL (0-900) 01/09/17 10:16 Total Protein 8.9 g/dL (6.3-8.2) H 04/28/17 05:10 Albumin 2.5 g/dL (3.9-5) L 04/28/17 05:10 Albumin/Globulin Ratio 0.4 % 04/28/17 05:10 TSH 52.800 mlU/mL (0.270-4.200) H 01/09/17 10:16 Free T4 0.78 ng/dL (0.76-1.46) 01/09/17 10:16 Total Cortisol 54.8 mcg/dL () 01/09/17 16:19 Urine Color Yellow (Yellow) 01/28/17 17:52 Urine Turbidity Clear (Clear) 01/28/17 17:52 Urine pH 6.0 (5.0-7.0) 01/28/17 17:52 Ur Specific [place] 1.016 (1.003-1.030) 01/28/17 17:52 Urine Protein 100 mg/dl mg/dL (Negative) 01/28/17 17:52 Urine Glucose (UA) >=500 mg/dL (Negative) 01/28/17 17:52 Urine Ketones Neg mg/dL (Negative) 01/28/17 17:52 Urine Blood Sm (Negative) 01/28/17 17:52 Urine Nitrite Neg (Negative) 01/28/17 17:52 Urine Bilirubin Neg (Negative) 01/28/17 17:52 Urine Urobilinogen < 2.0 mg/dL (<2.0) 01/28/17 17:52 Ur Leukocyte Esterase Lg (Negative) 01/28/17 17:52 Urine WBC (Auto) > 182.0 /HPF (0.0-6.0) H 01/28/17 17:52 Urine RBC (Auto) 113.0 /HPF (0.0-6.0) 01/28/17 17:52 Urine Bacteria (Auto) 2+ /HPF (Negative) 01/28/17 17:52 Urine WBC Clumps 3+ /HPF 01/28/17 17:52 Urine Mucus Few /HPF 01/14/17 14:07 Urine Yeast ([place]) 3+ /HPF 01/14/17 14:07 Salicylates < 0.3 mg/dL (2.8-20.0) L 01/09/17 10:16 Urine Opiates Screen Presumptive negative 01/09/17 10:23 Urine Methadone Screen Presumptive negative 01/09/17 10:23 Acetaminophen < 15.0 ug/mL (10.0-30.0) 01/09/17 10:16 Ur Barbiturates Screen Presumptive negative 01/09/17 10:23 Ur Phencyclidine Scrn Presumptive negative 01/09/17 10:23 Ur Amphetamines Screen Presumptive negative 01/09/17 10:23 U Benzodiazepines Scrn Presumptive negative 01/09/17 10:23 Urine Cocaine Screen Presumptive negative 01/09/17 10:23 U Marijuana (THC) Screen Presumptive negative 01/09/17 10:23 Drugs of Abuse Note Disclamer 01/09/17 10:23 Plasma/Serum Alcohol < 0.01 gm% (0-0.07) 01/09/17 10:16
[2017-04-29] MEDS: LEVEMIR (NF) SUB-Q SCH (13:27)
[2017-04-30] MEDS: HumuLIN R SUB-Q SCH ×2 (06:41→22:22)
[2017-04-30] MEDS: SYNTHROID PO SCH (06:41)
[2017-04-30] MEDS: PEPCID PO SCH ×2 (11:42→22:22)
[2017-04-30] MEDS: HEPARIN SUB-Q SCH ×2 (11:42→22:25)
[2017-04-30] MEDS: LEVEMIR (NF) SUB-Q SCH (13:42)
[2017-05-01] MEDS: SYNTHROID PO SCH (06:41)
[2017-05-01] MEDS: HumuLIN R SUB-Q SCH ×3 (06:42→23:06)
--- NOTE | 2017-05-01 08:56 | Progress Note ---
Assessment and Plan Assessment and plan: 51 YO Male with CKD,HTN, DM presents to ED after found down and unresponsive by his neighbor, who subsequently called EMS. Upon arrival, patient found unresponsive on the floor with a serum glucose of 21, patient has a known history of alcohol abuse and delirium tremens. The patient was administered D5 approximate 500 mls during transport without change in mental status/level of consciousness. Pt seen and evaluated in ED was was found to be unable to protect his airway. Pt intubated and placed on vent support. 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 very poor prognosis Metabolic encephalopathy: Supportive care Hypoglycemia/hypothermia, resolved Acute respiratory failure mechanical ventilator greater than 96 hours: wean as tolerated. Pulm. following Hyponatremia: corrected Hypothyroidism: On levothyroxine IDDM : continue with SSI Anemia of chronic disease. Hypertension: Controlled Cont supportive care and current medication. Monitor vitals. Not weaniable and tach not indicated as per Spray Machine Loader Patient is DNR- needs guardianship from the state to give consent for further management, as has no family to give consent. Very poor prognosis, History Interval history: Patient found unresponsive, diagnosed with hypoglycemia with brain injury, minimally responsive, no new events, Hospitalist Physical - Physical exam Narrative exam: Gen Appearance: Not in acute distress, malnourished, intubated HEENT: normocephalic, atraumatic Neck: supple, no JVD Lungs: clear to auscultation bilaterally, no crackles or wheezes Heart: S1 and S2 regular, no murmurs, rubs or gallop Abdomen: Soft , non tender, non distended, normal bowel sounds Extremity: No edema, clubbing or cyanosis Neuro : Intubated, miniml responsive,withdraws to pain, does not follow commands - Constitutional Vitals: Temp Pulse Resp BP Pulse Ox 100.8 F H 78 12 112/73 100 05/01/17 08:00 05/01/17 08:34 05/01/17 06:00 05/01/17 08:34 05/01/17 08:34 Results - Labs CBC & Chem 7: 04/28/17 05:10 04/28/17 05:10 Labs: Laboratory Last Values WBC 9.3 K/mm3 (4.5-11.0) 04/28/17 05:10 RBC 3.48 M/mm3 (3.65-5.03) L 04/28/17 05:10 Hgb 8.8 gm/dl (11.8-15.2) L 04/28/17 05:10 Hct 26.7 % (35.5-45.6) L 04/28/17 05:10 MCV 77 fl (84-94) L 04/28/17 05:10 MCH 25 pg (28-32) L 04/28/17 05:10 MCHC 33 % (32-34) 04/28/17 05:10 RDW 17.0 % (13.2-15.2) H 04/28/17 05:10 Plt Count 515 K/mm3 (140-440) H 04/28/17 05:10 Lymph % (Auto) 18.4 % (13.4-35.0) 04/28/17 05:10 [place] % (Auto) 8.4 % (0.0-7.3) H 04/28/17 05:10 Eos % (Auto) 1.8 % (0.0-4.3) 04/28/17 05:10 Baso % (Auto) 0.8 % (0.0-1.8) 04/28/17 05:10 Lymph # 1.7 K/mm3 (1.2-5.4) 04/28/17 05:10 [place] # 0.8 K/mm3 (0.0-0.8) 04/28/17 05:10 Eos # 0.2 K/mm3 (0.0-0.4) 04/28/17 05:10 Baso # 0.1 K/mm3 (0.0-0.1) 04/28/17 05:10 Add Manual Diff Complete 01/10/17 04:30 Total Counted 100 01/10/17 04:30 Seg Neutrophils % 70.6 % (40.0-70.0) H 04/28/17 05:10 Seg Neuts % (Manual) 88.0 % (40.0-70.0) H 01/10/17 04:30 Band Neutrophils % 7.0 % 01/10/17 04:30 Lymphocytes % (Manual) 4.0 % (13.4-35.0) L 01/10/17 04:30 Reactive Lymphs % (Man) 0 % 01/10/17 04:30 Monocytes % (Manual) 1.0 % (0.0-7.3) 01/10/17 04:30 Eosinophils % (Manual) 0 % (0.0-4.3) 01/10/17 04:30 Basophils % (Manual) 0 % (0.0-1.8) 01/10/17 04:30 Metamyelocytes % 0 % 01/10/17 04:30 Myelocytes % 0 % 01/10/17 04:30 Promyelocytes % 0 % 01/10/17 04:30 Blast Cells % 0 % 01/10/17 04:30 Nucleated RBC % Not Reportable 01/10/17 04:30 Seg Neutrophils # 6.6 K/mm3 (1.8-7.7) 04/28/17 05:10 Seg Neutrophils # Man 21.2 K/mm3 (1.8-7.7) H 01/10/17 04:30 Band Neutrophils # 1.7 K/mm3 01/10/17 04:30 Lymphocytes # (Manual) 1.0 K/mm3 (1.2-5.4) L 01/10/17 04:30 Abs React Lymphs (Man) 0.0 K/mm3 01/10/17 04:30 Monocytes # (Manual) 0.2 K/mm3 (0.0-0.8) 01/10/17 04:30 Eosinophils # (Manual) 0.0 K/mm3 (0.0-0.4) 01/10/17 04:30 Basophils # (Manual) 0.0 K/mm3 (0.0-0.1) 01/10/17 04:30 Metamyelocytes # 0.0 K/mm3 01/10/17 04:30 Myelocytes # 0.0 K/mm3 01/10/17 04:30 Promyelocytes # 0.0 K/mm3 01/10/17 04:30 Blast Cells # 0.0 K/mm3 01/10/17 04:30 WBC Morphology Not Reportable 01/10/17 04:30 Hypersegmented Neuts Not Reportable 01/10/17 04:30 Hyposegmented Neuts Not Reportable 01/10/17 04:30 Hypogranular Neuts Not Reportable 01/10/17 04:30 Smudge Cells Not Reportable 01/10/17 04:30 Toxic Granulation Not Reportable 01/10/17 04:30 Toxic Vacuolation Not Reportable 01/10/17 04:30 Dohle Bodies Not Reportable 01/10/17 04:30 [place]-Huet Anomaly Not Reportable 01/10/17 04:30 [place] Rods Not Reportable 01/10/17 04:30 Platelet Estimate Consistent w auto 01/10/17 04:30 Clumped Platelets Not Reportable 01/10/17 04:30 Plt Clumps, EDTA Not Reportable 01/10/17 04:30 Large Platelets Not Reportable 01/10/17 04:30 Giant Platelets Not Reportable 01/10/17 04:30 Platelet Satelliting Not Reportable 01/10/17 04:30 Plt Morphology Comment Not Reportable 01/10/17 04:30 RBC Morphology Not Reportable 01/10/17 04:30 Dimorphic RBCs Not Reportable 01/10/17 04:30 Polychromasia Not Reportable 01/10/17 04:30 Hypochromasia 1+ 01/10/17 04:30 Poikilocytosis Not Reportable 01/10/17 04:30 Anisocytosis Not Reportable 01/10/17 04:30 Microcytosis Not Reportable 01/10/17 04:30 Macrocytosis Not Reportable 01/10/17 04:30 Spherocytes Not Reportable 01/10/17 04:30 Pappenheimer Bodies Not Reportable 01/10/17 04:30 Sickle Cells Not Reportable 01/10/17 04:30 Target Cells Not Reportable 01/10/17 04:30 Tear Drop Cells Not Reportable 01/10/17 04:30 Ovalocytes Not Reportable 01/10/17 04:30 Helmet Cells Not Reportable 01/10/17 04:30 [place] Bodies Not Reportable 01/10/17 04:30 [place] Rings Not Reportable 01/10/17 04:30 [place] Cells Not Reportable 01/10/17 04:30 Bite Cells Not Reportable 01/10/17 04:30 Crenated Cell Not Reportable 01/10/17 04:30 Elliptocytes Not Reportable 01/10/17 04:30 Acanthocytes (Spur) Not Reportable 01/10/17 04:30 Rouleaux Not Reportable 01/10/17 04:30 Hemoglobin C Crystals Not Reportable 01/10/17 04:30 Schistocytes Not Reportable 01/10/17 04:30 Malaria parasites Not Reportable 01/10/17 04:30 [place] Bodies Not Reportable 01/10/17 04:30 Hem Pathologist Commnt No 01/10/17 04:30 PT 14.1 Sec. (12.2-14.9) 01/17/17 04:10 INR 1.04 (0.87-1.13) 01/17/17 04:10 APTT 36.6 Sec. (24.2-36.6) 01/17/17 04:10 POC ABG pH 7.442 (7.35-7.45) 01/31/17 18:55 ABG pH 7.420 pH Units (7.350-7.450) 01/17/17 04:35 POC ABG pCO2 32.8 (35-45) L 01/31/17 18:55 ABG pCO2 34.5 mm Hg 01/17/17 04:35 POC ABG pO2 82 (80-105) 01/31/17 18:55 ABG pO2 160.3 mm Hg (80.0-90.0) H 01/17/17 04:35 POC ABG HCO3 22.4 01/31/17 18:55 ABG HCO3 21.9 mmol/L (20.0-26.0) 01/17/17 04:35 POC ABG Total CO2 23 01/31/17 18:55 POC ABG O2 Sat 97 01/31/17 18:55 ABG O2 Saturation 99.0 % (95.0-99.0) 01/17/17 04:35 ABG O2 Content 11.1 (0.0-44) 01/17/17 04:35 POC ABG Base Excess -2 01/31/17 18:55 ABG Base Excess -2.3 mmol/L (-2.0-3.0) L 01/17/17 04:35 ABG Hemoglobin 7.9 gm/dl (14.0-18.0) L 01/17/17 04:35 ABG Carboxyhemoglobin 1.5 % (0.0-5.0) 01/17/17 04:35 ABG Methemoglobin 0.5 % (0.0-1.5) 01/17/17 04:35 VBG pH 7.284 (7.320-7.420) L 01/09/17 10:16 Oxyhemoglobin 97.1 % (95.0-99.0) 01/17/17 04:35 FiO2 25 % 01/31/17 18:55 Sodium 136 mmol/L (137-145) L 04/28/17 05:10 Potassium 4.5 mmol/L (3.6-5.0) 04/28/17 05:10 Chloride 95.2 mmol/L (98-107) L 04/28/17 05:10 Carbon Dioxide 27 mmol/L (22-30) 04/28/17 05:10 Anion Gap 18 mmol/L 04/28/17 05:10 BUN 42 mg/dL (9-20) H 04/28/17 05:10 Creatinine 0.9 mg/dL (0.8-1.5) 04/28/17 05:10 Estimated GFR > 60 ml/min 04/28/17 05:10 BUN/Creatinine Ratio 47 % 04/28/17 05:10 Glucose 63 mg/dL (75-100) L 04/28/17 05:10 POC Glucose 335 (70-105) H 05/01/17 05:04 Lactic Acid 0.80 mmol/L (0.7-2.0) 01/30/17 11:49 Calcium 9.1 mg/dL (8.4-10.2) 04/28/17 05:10 Phosphorus 3.10 mg/dL (2.5-4.5) 03/29/17 04:32 Magnesium 1.90 mg/dL (1.7-2.3) 03/29/17 04:32 Total Bilirubin 0.50 mg/dL (0.1-1.2) 04/28/17 05:10 AST 45 units/L (5-40) H 04/28/17 05:10 ALT 42 units/L (7-56) 04/28/17 05:10 Alkaline Phosphatase 271 units/L (35-129) H 04/28/17 05:10 Ammonia 35.0 umol/L (25-60) 01/09/17 10:16 Total Creatine Kinase 135 units/L (55-170) 01/09/17 10:16 CK-MB (CK-2) 7.1 ng/mL (0.0-4.0) H 01/09/17 10:16 CK-MB (CK-2) Rel Index 5.2 (0-4) H 01/09/17 10:16 Troponin T < 0.010 ng/mL (0.00-0.029) 01/09/17 10:16 NT-Pro-B Natriuret Pep 602.9 pg/mL (0-900) 01/09/17 10:16 Total Protein 8.9 g/dL (6.3-8.2) H 04/28/17 05:10 Albumin 2.5 g/dL (3.9-5) L 04/28/17 05:10 Albumin/Globulin Ratio 0.4 % 04/28/17 05:10 TSH 52.800 mlU/mL (0.270-4.200) H 01/09/17 10:16 Free T4 0.78 ng/dL (0.76-1.46) 01/09/17 10:16 Total Cortisol 54.8 mcg/dL () 01/09/17 16:19 Urine Color Yellow (Yellow) 01/28/17 17:52 Urine Turbidity Clear (Clear) 01/28/17 17:52 Urine pH 6.0 (5.0-7.0) 01/28/17 17:52 Ur Specific [place] 1.016 (1.003-1.030) 01/28/17 17:52 Urine Protein 100 mg/dl mg/dL (Negative) 01/28/17 17:52 Urine Glucose (UA) >=500 mg/dL (Negative) 01/28/17 17:52 Urine Ketones Neg mg/dL (Negative) 01/28/17 17:52 Urine Blood Sm (Negative) 01/28/17 17:52 Urine Nitrite Neg (Negative) 01/28/17 17:52 Urine Bilirubin Neg (Negative) 01/28/17 17:52 Urine Urobilinogen < 2.0 mg/dL (<2.0) 01/28/17 17:52 Ur Leukocyte Esterase Lg (Negative) 01/28/17 17:52 Urine WBC (Auto) > 182.0 /HPF (0.0-6.0) H 01/28/17 17:52 Urine RBC (Auto) 113.0 /HPF (0.0-6.0) 01/28/17 17:52 Urine Bacteria (Auto) 2+ /HPF (Negative) 01/28/17 17:52 Urine WBC Clumps 3+ /HPF 01/28/17 17:52 Urine Mucus Few /HPF 01/14/17 14:07 Urine Yeast (Budding) 3+ /HPF 01/14/17 14:07 Salicylates < 0.3 mg/dL (2.8-20.0) L 01/09/17 10:16 Urine Opiates Screen Presumptive negative 01/09/17 10:23 Urine Methadone Screen Presumptive negative 01/09/17 10:23 Acetaminophen < 15.0 ug/mL (10.0-30.0) 01/09/17 10:16 Ur Barbiturates Screen Presumptive negative 01/09/17 10:23 Ur Phencyclidine Scrn Presumptive negative 01/09/17 10:23 Ur Amphetamines Screen Presumptive negative 01/09/17 10:23 U Benzodiazepines Scrn Presumptive negative 01/09/17 10:23 Urine Cocaine Screen Presumptive negative 01/09/17 10:23 U Marijuana (THC) Screen Presumptive negative 01/09/17 10:23 Drugs of Abuse Note Disclamer 01/09/17 10:23 Plasma/Serum Alcohol < 0.01 gm% (0-0.07) 01/09/17 10:16
[2017-05-01] MEDS: LEVEMIR (NF) SUB-Q SCH (10:42)
[2017-05-01] MEDS: PEPCID PO SCH ×2 (10:42→21:57)
[2017-05-01] MEDS: HEPARIN SUB-Q SCH ×2 (10:42→21:57)
--- NOTE | 2017-05-01 12:18 | Event Note ---
Date: 05/01/17 No new events overnight. Per staff, mental state is unchanged. Continue supportive care. Court on 05/03 for guardianship hearing.
--- NOTE | 2017-05-01 15:34 | XRay Report ---
FINAL REPORT EXAM: XR ABDOMEN 1V AP HISTORY: OG tube placement TECHNIQUE: Limited supine views of the upper abdomen PRIORS: None. FINDINGS: Nasogastric tube has been placed with both the tip and side-port in the proximal stomach. The bowel gas pattern is nonspecific. No free air is identified. Moderate stool is present in the descending colon. Soft tissues have no evidence for mass shadows or calcifications. The bony structures are intact. IMPRESSION: Satisfactory nasogastric tube placement in the proximal stomach.
[2017-05-02] MEDS: SYNTHROID PO SCH (05:26)
[2017-05-02] MEDS: HumuLIN R SUB-Q SCH ×5 (05:26→21:33)
--- NOTE | 2017-05-02 07:59 | Progress Note ---
Assessment and Plan Assessment and plan: 51 YO Male with CKD,HTN, DM presents to ED after found down and unresponsive by his neighbor, who subsequently called EMS. Upon arrival, patient found unresponsive on the floor with a serum glucose of 21, patient has a known history of alcohol abuse and delirium tremens. The patient was administered D5 approximate 500 mls during transport without change in mental status/level of consciousness. Pt seen and evaluated in ED was was found to be unable to protect his airway. Pt intubated and placed on vent support. 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 very poor prognosis Metabolic encephalopathy: Supportive care Hypoglycemia/hypothermia, resolved Acute respiratory failure mechanical ventilator greater than 96 hours: wean as tolerated. Pulm. following Hyponatremia: corrected Hypothyroidism: On levothyroxine IDDM : continue with SSI Anemia of chronic disease. Hypertension: Controlled Cont supportive care and current medication. Monitor vitals. Not weaniable and tach not indicated as per [employer] Patient is DNR- needs guardianship from the state to give consent for further management, as has no family to give consent. Very poor prognosis, History Interval history: Patient found unresponsive, diagnosed with hypoglycemia with brain injury, minimally responsive, no new events, Hospitalist Physical - Physical exam Narrative exam: Gen Appearance: Not in acute distress, malnourished, intubated HEENT: normocephalic, atraumatic Neck: supple, no JVD Lungs: clear to auscultation bilaterally, no crackles or wheezes Heart: S1 and S2 regular, no murmurs, rubs or gallop Abdomen: Soft , non tender, non distended, normal bowel sounds Extremity: No edema, clubbing or cyanosis Neuro : Intubated, miniml responsive,withdraws to pain, does not follow commands - Constitutional Vitals: Temp Pulse Resp BP Pulse Ox 97.7 F 75 19 133/73 97 05/02/17 03:16 05/02/17 06:00 05/02/17 06:00 05/02/17 06:00 05/02/17 06:00 General appearance: Present: no acute distress Results - Labs CBC & Chem 7: 04/28/17 05:10 04/28/17 05:10 Labs: Laboratory Last Values WBC 9.3 K/mm3 (4.5-11.0) 04/28/17 05:10 RBC 3.48 M/mm3 (3.65-5.03) L 04/28/17 05:10 Hgb 8.8 gm/dl (11.8-15.2) L 04/28/17 05:10 Hct 26.7 % (35.5-45.6) L 04/28/17 05:10 MCV 77 fl (84-94) L 04/28/17 05:10 MCH 25 pg (28-32) L 04/28/17 05:10 MCHC 33 % (32-34) 04/28/17 05:10 RDW 17.0 % (13.2-15.2) H 04/28/17 05:10 Plt Count 515 K/mm3 (140-440) H 04/28/17 05:10 Lymph % (Auto) 18.4 % (13.4-35.0) 04/28/17 05:10 [place] % (Auto) 8.4 % (0.0-7.3) H 04/28/17 05:10 Eos % (Auto) 1.8 % (0.0-4.3) 04/28/17 05:10 Baso % (Auto) 0.8 % (0.0-1.8) 04/28/17 05:10 Lymph # 1.7 K/mm3 (1.2-5.4) 04/28/17 05:10 [place]rie # 0.8 K/mm3 (0.0-0.8) 04/28/17 05:10 Eos # 0.2 K/mm3 (0.0-0.4) 04/28/17 05:10 Baso # 0.1 K/mm3 (0.0-0.1) 04/28/17 05:10 Add Manual Diff Complete 01/10/17 04:30 Total Counted 100 01/10/17 04:30 Seg Neutrophils % 70.6 % (40.0-70.0) H 04/28/17 05:10 Seg Neuts % (Manual) 88.0 % (40.0-70.0) H 01/10/17 04:30 Band Neutrophils % 7.0 % 01/10/17 04:30 Lymphocytes % (Manual) 4.0 % (13.4-35.0) L 01/10/17 04:30 Reactive Lymphs % (Man) 0 % 01/10/17 04:30 Monocytes % (Manual) 1.0 % (0.0-7.3) 01/10/17 04:30 Eosinophils % (Manual) 0 % (0.0-4.3) 01/10/17 04:30 Basophils % (Manual) 0 % (0.0-1.8) 01/10/17 04:30 Metamyelocytes % 0 % 01/10/17 04:30 Myelocytes % 0 % 01/10/17 04:30 Promyelocytes % 0 % 01/10/17 04:30 Blast Cells % 0 % 01/10/17 04:30 Nucleated RBC % Not Reportable 01/10/17 04:30 Seg Neutrophils # 6.6 K/mm3 (1.8-7.7) 04/28/17 05:10 Seg Neutrophils # Man 21.2 K/mm3 (1.8-7.7) H 01/10/17 04:30 Band Neutrophils # 1.7 K/mm3 01/10/17 04:30 Lymphocytes # (Manual) 1.0 K/mm3 (1.2-5.4) L 01/10/17 04:30 Abs React Lymphs (Man) 0.0 K/mm3 01/10/17 04:30 Monocytes # (Manual) 0.2 K/mm3 (0.0-0.8) 01/10/17 04:30 Eosinophils # (Manual) 0.0 K/mm3 (0.0-0.4) 01/10/17 04:30 Basophils # (Manual) 0.0 K/mm3 (0.0-0.1) 01/10/17 04:30 Metamyelocytes # 0.0 K/mm3 01/10/17 04:30 Myelocytes # 0.0 K/mm3 01/10/17 04:30 Promyelocytes # 0.0 K/mm3 01/10/17 04:30 Blast Cells # 0.0 K/mm3 01/10/17 04:30 WBC Morphology Not Reportable 01/10/17 04:30 Hypersegmented Neuts Not Reportable 01/10/17 04:30 Hyposegmented Neuts Not Reportable 01/10/17 04:30 Hypogranular Neuts Not Reportable 01/10/17 04:30 Smudge Cells Not Reportable 01/10/17 04:30 Toxic Granulation Not Reportable 01/10/17 04:30 Toxic Vacuolation Not Reportable 01/10/17 04:30 Dohle Bodies Not Reportable 01/10/17 04:30 Pelger-Huet Anomaly Not Reportable 01/10/17 04:30 Shelby Rods Not Reportable 01/10/17 04:30 Platelet Estimate Consistent w auto 01/10/17 04:30 Clumped Platelets Not Reportable 01/10/17 04:30 Plt Clumps, EDTA Not Reportable 01/10/17 04:30 Large Platelets Not Reportable 01/10/17 04:30 Giant Platelets Not Reportable 01/10/17 04:30 Platelet Satelliting Not Reportable 01/10/17 04:30 Plt Morphology Comment Not Reportable 01/10/17 04:30 RBC Morphology Not Reportable 01/10/17 04:30 Dimorphic RBCs Not Reportable 01/10/17 04:30 Polychromasia Not Reportable 01/10/17 04:30 Hypochromasia 1+ 01/10/17 04:30 Poikilocytosis Not Reportable 01/10/17 04:30 Anisocytosis Not Reportable 01/10/17 04:30 Microcytosis Not Reportable 01/10/17 04:30 Macrocytosis Not Reportable 01/10/17 04:30 Spherocytes Not Reportable 01/10/17 04:30 Pappenheimer Bodies Not Reportable 01/10/17 04:30 Sickle Cells Not Reportable 01/10/17 04:30 Target Cells Not Reportable 01/10/17 04:30 Tear Drop Cells Not Reportable 01/10/17 04:30 Ovalocytes Not Reportable 01/10/17 04:30 Helmet Cells Not Reportable 01/10/17 04:30 Jarrett-Fairchild Bodies Not Reportable 01/10/17 04:30 [place] Rings Not Reportable 01/10/17 04:30 [place] Cells Not Reportable 01/10/17 04:30 Bite Cells Not Reportable 01/10/17 04:30 Crenated Cell Not Reportable 01/10/17 04:30 Elliptocytes Not Reportable 01/10/17 04:30 Acanthocytes (Spur) Not Reportable 01/10/17 04:30 Rouleaux Not Reportable 01/10/17 04:30 Hemoglobin C Crystals Not Reportable 01/10/17 04:30 Schistocytes Not Reportable 01/10/17 04:30 Malaria parasites Not Reportable 01/10/17 04:30 Kyle Bodies Not Reportable 01/10/17 04:30 Hem Pathologist Commnt No 01/10/17 04:30 PT 14.1 Sec. (12.2-14.9) 01/17/17 04:10 INR 1.04 (0.87-1.13) 01/17/17 04:10 APTT 36.6 Sec. (24.2-36.6) 01/17/17 04:10 POC ABG pH 7.442 (7.35-7.45) 01/31/17 18:55 ABG pH 7.420 pH Units (7.350-7.450) 01/17/17 04:35 POC ABG pCO2 32.8 (35-45) L 01/31/17 18:55 ABG pCO2 34.5 mm Hg 01/17/17 04:35 POC ABG pO2 82 (80-105) 01/31/17 18:55 ABG pO2 160.3 mm Hg (80.0-90.0) H 01/17/17 04:35 POC ABG HCO3 22.4 01/31/17 18:55 ABG HCO3 21.9 mmol/L (20.0-26.0) 01/17/17 04:35 POC ABG Total CO2 23 01/31/17 18:55 POC ABG O2 Sat 97 01/31/17 18:55 ABG O2 Saturation 99.0 % (95.0-99.0) 01/17/17 04:35 ABG O2 Content 11.1 (0.0-44) 01/17/17 04:35 POC ABG Base Excess -2 01/31/17 18:55 ABG Base Excess -2.3 mmol/L (-2.0-3.0) L 01/17/17 04:35 ABG Hemoglobin 7.9 gm/dl (14.0-18.0) L 01/17/17 04:35 ABG Carboxyhemoglobin 1.5 % (0.0-5.0) 01/17/17 04:35 ABG Methemoglobin 0.5 % (0.0-1.5) 01/17/17 04:35 VBG pH 7.284 (7.320-7.420) L 01/09/17 10:16 Oxyhemoglobin 97.1 % (95.0-99.0) 01/17/17 04:35 FiO2 25 % 01/31/17 18:55 Sodium 136 mmol/L (137-145) L 04/28/17 05:10 Potassium 4.5 mmol/L (3.6-5.0) 04/28/17 05:10 Chloride 95.2 mmol/L (98-107) L 04/28/17 05:10 Carbon Dioxide 27 mmol/L (22-30) 04/28/17 05:10 Anion Gap 18 mmol/L 04/28/17 05:10 BUN 42 mg/dL (9-20) H 04/28/17 05:10 Creatinine 0.9 mg/dL (0.8-1.5) 04/28/17 05:10 Estimated GFR > 60 ml/min 04/28/17 05:10 BUN/Creatinine Ratio 47 % 04/28/17 05:10 Glucose 63 mg/dL (75-100) L 04/28/17 05:10 POC Glucose 225 (70-105) H 05/02/17 04:59 Lactic Acid 0.80 mmol/L (0.7-2.0) 01/30/17 11:49 Calcium 9.1 mg/dL (8.4-10.2) 04/28/17 05:10 Phosphorus 3.10 mg/dL (2.5-4.5) 03/29/17 04:32 Magnesium 1.90 mg/dL (1.7-2.3) 03/29/17 04:32 Total Bilirubin 0.50 mg/dL (0.1-1.2) 04/28/17 05:10 AST 45 units/L (5-40) H 04/28/17 05:10 ALT 42 units/L (7-56) 04/28/17 05:10 Alkaline Phosphatase 271 units/L (35-129) H 04/28/17 05:10 Ammonia 35.0 umol/L (25-60) 01/09/17 10:16 Total Creatine Kinase 135 units/L (55-170) 01/09/17 10:16 CK-MB (CK-2) 7.1 ng/mL (0.0-4.0) H 01/09/17 10:16 CK-MB (CK-2) Rel Index 5.2 (0-4) H 01/09/17 10:16 Troponin T < 0.010 ng/mL (0.00-0.029) 01/09/17 10:16 NT-Pro-B Natriuret Pep 602.9 pg/mL (0-900) 01/09/17 10:16 Total Protein 8.9 g/dL (6.3-8.2) H 04/28/17 05:10 Albumin 2.5 g/dL (3.9-5) L 04/28/17 05:10 Albumin/Globulin Ratio 0.4 % 04/28/17 05:10 TSH 52.800 mlU/mL (0.270-4.200) H 01/09/17 10:16 Free T4 0.78 ng/dL (0.76-1.46) 01/09/17 10:16 Total Cortisol 54.8 mcg/dL () 01/09/17 16:19 Urine Color Yellow (Yellow) 01/28/17 17:52 Urine Turbidity Clear (Clear) 01/28/17 17:52 Urine pH 6.0 (5.0-7.0) 01/28/17 17:52 Ur Specific [place] 1.016 (1.003-1.030) 01/28/17 17:52 Urine Protein 100 mg/dl mg/dL (Negative) 01/28/17 17:52 Urine Glucose (UA) >=500 mg/dL (Negative) 01/28/17 17:52 Urine Ketones Neg mg/dL (Negative) 01/28/17 17:52 Urine Blood Sm (Negative) 01/28/17 17:52 Urine Nitrite Neg (Negative) 01/28/17 17:52 Urine Bilirubin Neg (Negative) 01/28/17 17:52 Urine Urobilinogen < 2.0 mg/dL (<2.0) 01/28/17 17:52 Ur Leukocyte Esterase Lg (Negative) 01/28/17 17:52 Urine WBC (Auto) > 182.0 /HPF (0.0-6.0) H 01/28/17 17:52 Urine RBC (Auto) 113.0 /HPF (0.0-6.0) 01/28/17 17:52 Urine Bacteria (Auto) 2+ /HPF (Negative) 01/28/17 17:52 Urine WBC Clumps 3+ /HPF 01/28/17 17:52 Urine Mucus Few /HPF 01/14/17 14:07 Urine Yeast (Budding) 3+ /HPF 01/14/17 14:07 Salicylates < 0.3 mg/dL (2.8-20.0) L 01/09/17 10:16 Urine Opiates Screen Presumptive negative 01/09/17 10:23 Urine Methadone Screen Presumptive negative 01/09/17 10:23 Acetaminophen < 15.0 ug/mL (10.0-30.0) 01/09/17 10:16 Ur Barbiturates Screen Presumptive negative 01/09/17 10:23 Ur Phencyclidine Scrn Presumptive negative 01/09/17 10:23 Ur Amphetamines Screen Presumptive negative 01/09/17 10:23 U Benzodiazepines Scrn Presumptive negative 01/09/17 10:23 Urine Cocaine Screen Presumptive negative 01/09/17 10:23 U Marijuana (THC) Screen Presumptive negative 01/09/17 10:23 Drugs of Abuse Note Disclamer 01/09/17 10:23 Plasma/Serum Alcohol < 0.01 gm% (0-0.07) 01/09/17 10:16
[2017-05-02] MEDS: PEPCID PO SCH ×2 (12:00→21:32)
[2017-05-02] MEDS: LEVEMIR (NF) SUB-Q SCH (12:00)
[2017-05-02] MEDS: HEPARIN SUB-Q SCH ×2 (12:00→21:33)
[2017-05-03] MEDS: HumuLIN R SUB-Q SCH ×3 (06:28→22:36)
[2017-05-03] MEDS: SYNTHROID PO SCH (06:28)
--- NOTE | 2017-05-03 10:22 | Progress Note ---
Assessment and Plan Hypoglycemic brain injury Persistent vegetative state Metabolic encephalopathy Hypoglycemia/hypothermia, resolved Acute respiratory failure on mechanical ventilator dependent UTI with klebsiella, treated ( Cx + on 01/28), then with ESBL likely colonization hyponatremia, stable Hypothyroidism IDDM Hypertension low grade Fever, - Cont supportive care and current medication. Monitor vitals, repeat cx on - no growth - increased dose of long acting insulin to 15 unit - Patient is DNR- needs guardianship from the state to give consent for further management, as has no family to give consent. Brief History: 51 YO Male with CKD,HTN, DM presents to ED after found down and unresponsive by his neighbor, who subsequently called EMS. Upon arrival, patient found unresponsive on the floor with a serum glucose of 21, patient has a known history of alcohol abuse and delirium tremens. The patient was administered D5 approximate 500 mls during transport without change in mental status/level of consciousness. Pt seen and evaluated in ED was was found to be unable to protect his airway. Pt intubated and placed on vent support. Pt found to have evidence of hypothyroidism. He was started on Synthroid. He has since been in the ICU. branch services manager try to locate family, even spoke to the family who he lives with. They themselves were unaware of any family members. After ethics committee meeting on the patient. The decision was made to make him DO NOT RESUSCITATE and to transfer him to hospice. Given his very poor prognosis and poor likelihood of recovery. It was decided that was not his best interest to get trach and PEG. Therefore he'll be transferred to the hospice intubated. Now Awaiting on court ordered /state guardianship. Hospitalist Physical - Physical exam Narrative exam: General: comatose HEENT: Moist mucous membranes, , no lymphadenopathy Neck: supple Cardiac: S1-S2 heard Lungs: mechnical ventilated breath sounds Abdomen: soft , nontender, nondistended, bowel sounds positive Extremities: no edema clubbing or cyanosis Skin: no rash or lesions Neurologic: opens eyes, withdraws from painful stimuli, does not follow commend Subjective Date of service: 05/03/17 Principal diagnosis: Acute respiratory failure,encephalopathy Interval history: patient remains comatose, no movement of extremities no clinical change spiking low grade fever Objective - Constitutional Vitals: Vital Signs - 12hr 05/02/17 05/03/17 05/03/17 23:43 00:00 02:01 Temperature Pulse Rate 91 H 87 76 Respiratory 29 H 16 Rate Blood Pressure 92/53 87/52 90/52 O2 Sat by Pulse 95 94 98 Oximetry 05/03/17 05/03/17 05/03/17 03:00 03:45 04:00 Temperature 99.6 F Pulse Rate 81 79 Respiratory 18 Rate Blood Pressure 90/52 103/63 O2 Sat by Pulse 95 95 Oximetry 05/03/17 05/03/17 05/03/17 06:01 07:40 08:00 Temperature 100.5 F H Pulse Rate 83 84 Respiratory 16 Rate Blood Pressure 103/63 103/63 O2 Sat by Pulse 97 98 Oximetry - Labs CBC & Chem 7: 04/28/17 05:10 04/28/17 05:10 Labs: Abnormal lab results 05/02/17 05/02/17 Range/Units 14:06 21:20 POC Glucose 165 H 181 H (70-105)
[2017-05-03] MEDS: HEPARIN SUB-Q SCH ×2 (11:45→22:30)
[2017-05-03] MEDS: LEVEMIR (NF) SUB-Q SCH (11:46)
[2017-05-03] MEDS: PEPCID PO SCH ×2 (11:46→22:30)
--- NOTE | 2017-05-03 15:30 | Progress Note ---
Assessment and Plan Imp: 1. Hypoglycemia/hypothermia -> suspect due to too much insulin 2. Hypothyroidism; doubt myxedema coma with normal free T4 3. Acute respiratory failure, hypoxia 4. UTI/SIRS 5. Metabolic encephalopathy Rec: 1. GI/DVT PPx/TFs 2. Reviewed chart; ethics note 01/18/17 recommended AND and "hospice"; trying to get guardianship to sign necessary orders for this (however, I was told they are not willing to sign for withdrawal of ventilator); further care felt to be futile and would only prolong potential suffering without affecting ultimate outcome 3. Comfort care, no escalation of care; would not check any further labs, CXRs, or cultures; would not work him up for infections in setting of fever, only treat w/ Tylenol for palliative purposes 4. Poor prognosis Unable to locate family. Subjective Date of service: 05/03/17 Principal diagnosis: Acute respiratory failure,encephalopathy Interval history: No events. On vent. Unresponsive. + Fevers. Active Medications Lipase/Protease/Amylase (Pancreazjoni Dr 10,500 Unit) 1 each FEEDTUBE PRN PRN PRN Reason: For Clogged Feeding Tube Famotidine (Pepcid) 20 mg PO BID [facility] Last Admin: 05/03/17 11:46 Dose: 20 mg Heparin Sodium (Porcine) (Heparin) 5,000 unit SUB-Q Q12HR [facility] Last Admin: 05/03/17 11:45 Dose: 5,000 unit Hydrophilic Ointment (Vaseline Lip Therapy) 1 applic TP Q2HR PRN PRN Reason: Dry Lips Last Admin: 04/29/17 05:40 Dose: 1 applic Insulin Detemir (Levemir) 9 units SUB-Q DAILY [facility] Last Admin: 05/03/17 11:46 Dose: 9 units Insulin Human Regular (Novolin R) 0 units SUB-Q Q8HR [place]OLO PRN Reason: Protocol Last Admin: 05/03/17 06:28 Dose: 10 units Levothyroxine Sodium (Synthroid) 100 mcg PO DAILY@0600 [facility] Last Admin: 05/03/17 06:28 Dose: 100 mcg Loperamide HCl (Imodium A-D) 2 mg PO Q2H PRN PRN Reason: Diarrhea Last Admin: 04/29/17 00:57 Dose: 2 mg Multi-Ingred Cream/Lotion/Oil/Oint (Artificial Tears Ophth Oint) 1 applic OU Q4HR PRN PRN Reason: Dry Eye(s) Simple Syrup (Simple Syrup) 15 ml FEEDTUBE PRN PRN PRN Reason: Hypoglycemia Simple Syrup (Simple Syrup) 30 ml FEEDTUBE PRN PRN PRN Reason: Hypoglycemia Last Admin: 04/28/17 04:57 Dose: 30 ml Sodium Bicarbonate (Sodium Bicarbonate) 325 mg FEEDTUBE PRN PRN PRN Reason: For Clogged Feeding Tube Objective Vital Signs - 12hr 05/03/17 05/03/17 05/03/17 03:45 04:00 06:01 Temperature Pulse Rate 81 79 83 Respiratory 18 16 Rate Blood Pressure 90/52 103/63 103/63 O2 Sat by Pulse 95 95 97 Oximetry 05/03/17 05/03/17 05/03/17 07:40 08:00 10:34 Temperature 100.5 F H Pulse Rate 84 83 Respiratory Rate Blood Pressure 103/63 112/67 O2 Sat by Pulse 98 98 Oximetry 05/03/17 05/03/17 11:29 15:03 Temperature 100.7 F H Pulse Rate 84 Respiratory Rate Blood Pressure 108/67 O2 Sat by Pulse 97 Oximetry Constitutional: no acute distress, alert Eyes: non-icteric ENT: oropharynx moist, other (ETT in position) Neck: supple Effort: normal Ascultation: Bilateral: clear, diminished breath sounds Cardiovascular: regular rate and rhythm (no mrg) Gastrointestinal: normoactive bowel sounds, soft, non-tender, non-distended Integumentary: normal Extremities: no cyanosis, no edema, pink and warm Neurologic: pupils equal and round, other (not following commands,mild response to pain) Psychiatric: other (unable to obtain) CBC and BMP: 04/28/17 05:10 04/28/17 05:10 ABG, PT/INR, D-dimer: ABG POC ABG pH 7.442 (7.35-7.45) 01/31/17 18:55 ABG pH 7.420 pH Units (7.350-7.450) 01/17/17 04:35 POC ABG pCO2 32.8 (35-45) L 01/31/17 18:55 ABG pCO2 34.5 mm Hg 01/17/17 04:35 POC ABG pO2 82 (80-105) 01/31/17 18:55 ABG pO2 160.3 mm Hg (80.0-90.0) H 01/17/17 04:35 POC ABG HCO3 22.4 01/31/17 18:55 POC ABG Total CO2 23 01/31/17 18:55 POC ABG O2 Sat 97 01/31/17 18:55 ABG O2 Saturation 99.0 % (95.0-99.0) 01/17/17 04:35 PT/INR, D-dimer PT 14.1 Sec. (12.2-14.9) 01/17/17 04:10 INR 1.04 (0.87-1.13) 01/17/17 04:10 Abnormal lab findings: Abnormal Labs 01/09/17 01/09/17 01/09/17 10:16 10:16 10:16 WBC RBC Hgb 9.7 L Hct 28.4 L MCV 76 L MCH 26 L RDW 17.2 H Plt Count 448 H Lymph % (Auto) [place] % (Auto) Eos % (Auto) [place] # Seg Neutrophils % 79.5 H Seg Neuts % (Manual) Lymphocytes % (Manual) Seg Neutrophils # Seg Neutrophils # Man Lymphocytes # (Manual) APTT 39.6 H POC ABG pH ABG pH POC ABG pCO2 POC ABG pO2 ABG pO2 ABG HCO3 ABG Base Excess ABG Hemoglobin VBG pH Oxyhemoglobin Sodium 132 L Potassium Chloride 96.7 L Carbon Dioxide 21 L BUN 34 H Creatinine Glucose POC Glucose Lactic Acid Calcium 8.3 L AST ALT Alkaline Phosphatase 151 H CK-MB (CK-2) 7.1 H CK-MB (CK-2) Rel Index 5.2 H Total Protein Albumin 3.3 L TSH Urine WBC (Auto) Salicylates 01/09/17 01/09/17 01/09/17 10:16 10:16 10:16 WBC RBC Hgb Hct MCV MCH RDW Plt Count Lymph % (Auto) [place] % (Auto) Eos % (Auto) [place] # Seg Neutrophils % Seg Neuts % (Manual) Lymphocytes % (Manual) Seg Neutrophils # Seg Neutrophils # Man Lymphocytes # (Manual) APTT POC ABG pH ABG pH POC ABG pCO2 POC ABG pO2 ABG pO2 ABG HCO3 ABG Base Excess ABG Hemoglobin VBG pH 7.284 L Oxyhemoglobin Sodium Potassium Chloride Carbon Dioxide BUN Creatinine Glucose POC Glucose Lactic Acid Calcium AST ALT Alkaline Phosphatase CK-MB (CK-2) CK-MB (CK-2) Rel Index Total Protein Albumin TSH 52.800 H Urine WBC (Auto) Salicylates < 0.3 L 01/09/17 01/09/17 01/09/17 10:23 11:14 12:49 WBC RBC Hgb Hct MCV MCH RDW Plt Count Lymph % (Auto) [place] % (Auto) Eos % (Auto) [place] # Seg Neutrophils % Seg Neuts % (Manual) Lymphocytes % (Manual) Seg Neutrophils # Seg Neutrophils # Man Lymphocytes # (Manual) APTT POC ABG pH ABG pH POC ABG pCO2 POC ABG pO2 643 H ABG pO2 ABG HCO3 ABG Base Excess ABG Hemoglobin VBG pH Oxyhemoglobin Sodium Potassium Chloride Carbon Dioxide BUN Creatinine Glucose POC Glucose < 40 L Lactic Acid Calcium AST ALT Alkaline Phosphatase CK-MB (CK-2) CK-MB (CK-2) Rel Index Total Protein Albumin TSH Urine WBC (Auto) 61.0 H Salicylates 01/09/17 01/09/17 01/09/17 13:13 14:21 15:09 WBC RBC Hgb Hct MCV MCH RDW Plt Count Lymph % (Auto) [place] % (Auto) Eos % (Auto) [place] # Seg Neutrophils % Seg Neuts % (Manual) Lymphocytes % (Manual) Seg Neutrophils # Seg Neutrophils # Man Lymphocytes # (Manual) APTT POC ABG pH ABG pH POC ABG pCO2 POC ABG pO2 ABG pO2 ABG HCO3 ABG Base Excess ABG Hemoglobin VBG pH Oxyhemoglobin Sodium Potassium Chloride Carbon Dioxide BUN Creatinine Glucose POC Glucose 128 H 65 L 120 H Lactic Acid Calcium AST ALT Alkaline Phosphatase CK-MB (CK-2) CK-MB (CK-2) Rel Index Total Protein Albumin TSH Urine WBC (Auto) Salicylates 01/09/17 01/09/17 01/10/17 16:28 17:14 04:30 WBC 24.1 H RBC 3.38 L Hgb 8.5 L Hct 26.0 L MCV 77 L MCH 25 L RDW 17.9 H Plt Count 474 H Lymph % (Auto) [place] % (Auto) Eos % (Auto) [place] # Seg Neutrophils % Seg Neuts % (Manual) 88.0 H Lymphocytes % (Manual) 4.0 L Seg Neutrophils # Seg Neutrophils # Man 21.2 H Lymphocytes # (Manual) 1.0 L APTT POC ABG pH ABG pH POC ABG pCO2 POC ABG pO2 ABG pO2 ABG HCO3 ABG Base Excess ABG Hemoglobin VBG pH Oxyhemoglobin Sodium Potassium Chloride Carbon Dioxide BUN Creatinine Glucose POC Glucose 44 L 112 H Lactic Acid Calcium AST ALT Alkaline Phosphatase CK-MB (CK-2) CK-MB (CK-2) Rel Index Total Protein Albumin TSH Urine WBC (Auto) Salicylates 01/10/17 01/10/17 01/10/17 04:30 05:41 05:45 WBC RBC Hgb Hct MCV MCH RDW Plt Count Lymph % (Auto) [place] % (Auto) Eos % (Auto) [place] # Seg Neutrophils % Seg Neuts % (Manual) Lymphocytes % (Manual) Seg Neutrophils # Seg Neutrophils # Man Lymphocytes # (Manual) APTT POC ABG pH ABG pH POC ABG pCO2 26.6 L POC ABG pO2 207 H ABG pO2 ABG HCO3 ABG Base Excess ABG Hemoglobin VBG pH Oxyhemoglobin Sodium Potassium Chloride Carbon Dioxide 17 L BUN 27 H Creatinine Glucose POC Glucose 68 L Lactic Acid Calcium 7.5 L AST ALT Alkaline Phosphatase CK-MB (CK-2) CK-MB (CK-2) Rel Index Total Protein Albumin TSH Urine WBC (Auto) Salicylates 01/10/17 01/10/17 01/10/17 07:47 10:50 13:41 WBC RBC Hgb Hct MCV MCH RDW Plt Count Lymph % (Auto) [place] % (Auto) Eos % (Auto) [place] # Seg Neutrophils % Seg Neuts % (Manual) Lymphocytes % (Manual) Seg Neutrophils # Seg Neutrophils # Man Lymphocytes # (Manual) APTT POC ABG pH ABG pH POC ABG pCO2 POC ABG pO2 ABG pO2 ABG HCO3 ABG Base Excess ABG Hemoglobin VBG pH Oxyhemoglobin Sodium Potassium Chloride Carbon Dioxide BUN Creatinine Glucose POC Glucose 148 H 165 H 114 H Lactic Acid Calcium AST ALT Alkaline Phosphatase CK-MB (CK-2) CK-MB (CK-2) Rel Index Total Protein Albumin TSH Urine WBC (Auto) Salicylates 01/10/17 01/10/17 01/10/17 20:20 21:39 23:24 WBC RBC Hgb Hct MCV MCH RDW Plt Count Lymph % (Auto) [place] % (Auto) Eos % (Auto) [place] # Seg Neutrophils % Seg Neuts % (Manual) Lymphocytes % (Manual) Seg Neutrophils # Seg Neutrophils # Man Lymphocytes # (Manual) APTT POC ABG pH ABG pH POC ABG pCO2 POC ABG pO2 ABG pO2 ABG HCO3 ABG Base Excess ABG Hemoglobin VBG pH Oxyhemoglobin Sodium Potassium Chloride Carbon Dioxide BUN Creatinine Glucose POC Glucose 150 H 175 H 155 H Lactic Acid Calcium AST ALT Alkaline Phosphatase CK-MB (CK-2) CK-MB (CK-2) Rel Index Total Protein Albumin TSH Urine WBC (Auto) Salicylates 01/11/17 01/11/17 01/11/17 00:19 04:06 05:20 WBC 15.2 H RBC 3.40 L Hgb 8.9 L Hct 26.3 L MCV 78 L MCH 26 L RDW 18.6 H Plt Count 462 H Lymph % (Auto) 13.2 L [place] % (Auto) Eos % (Auto) [place] # Seg Neutrophils % 80.8 H Seg Neuts % (Manual) Lymphocytes % (Manual) Seg Neutrophils # 12.3 H Seg Neutrophils # Man Lymphocytes # (Manual) APTT POC ABG pH 7.463 H ABG pH POC ABG pCO2 26.2 L POC ABG pO2 185 H ABG pO2 ABG HCO3 ABG Base Excess ABG Hemoglobin VBG pH Oxyhemoglobin Sodium Potassium Chloride Carbon Dioxide BUN Creatinine Glucose POC Glucose 163 H Lactic Acid Calcium AST ALT Alkaline Phosphatase CK-MB (CK-2) CK-MB (CK-2) Rel Index Total Protein Albumin TSH Urine WBC (Auto) Salicylates 01/11/17 01/11/17 01/11/17 05:20 06:21 07:57 WBC RBC Hgb Hct MCV MCH RDW Plt Count Lymph % (Auto) [place] % (Auto) Eos % (Auto) [place] # Seg Neutrophils % Seg Neuts % (Manual) Lymphocytes % (Manual) Seg Neutrophils # Seg Neutrophils # Man Lymphocytes # (Manual) APTT POC ABG pH ABG pH POC ABG pCO2 POC ABG pO2 ABG pO2 ABG HCO3 ABG Base Excess ABG Hemoglobin VBG pH Oxyhemoglobin Sodium Potassium 3.4 L Chloride 111.5 H Carbon Dioxide 17 L BUN Creatinine Glucose 147 H POC Glucose 139 H 188 H Lactic Acid Calcium 8.0 L AST ALT Alkaline Phosphatase CK-MB (CK-2) CK-MB (CK-2) Rel Index Total Protein Albumin TSH Urine WBC (Auto) Salicylates 01/11/17 01/11/17 01/11/17 11:46 16:50 23:15 WBC RBC Hgb Hct MCV MCH RDW Plt Count Lymph % (Auto) [place] % (Auto) Eos % (Auto) [place] # Seg Neutrophils % Seg Neuts % (Manual) Lymphocytes % (Manual) Seg Neutrophils # Seg Neutrophils # Man Lymphocytes # (Manual) APTT POC ABG pH ABG pH POC ABG pCO2 POC ABG pO2 ABG pO2 ABG HCO3 ABG Base Excess ABG Hemoglobin VBG pH Oxyhemoglobin Sodium Potassium Chloride Carbon Dioxide BUN Creatinine Glucose POC Glucose 199 H 235 H 155 H Lactic Acid Calcium AST ALT Alkaline Phosphatase CK-MB (CK-2) CK-MB (CK-2) Rel Index Total Protein Albumin TSH Urine WBC (Auto) Salicylates 01/12/17 01/12/17 01/12/17 05:02 06:56 14:50 WBC RBC Hgb Hct MCV MCH RDW Plt Count Lymph % (Auto) [place] % (Auto) Eos % (Auto) [place] # Seg Neutrophils % Seg Neuts % (Manual) Lymphocytes % (Manual) Seg Neutrophils # Seg Neutrophils # Man Lymphocytes # (Manual) APTT POC ABG pH ABG pH POC ABG pCO2 28.0 L POC ABG pO2 178 H ABG pO2 ABG HCO3 ABG Base Excess ABG Hemoglobin VBG pH Oxyhemoglobin Sodium Potassium Chloride Carbon Dioxide BUN Creatinine Glucose POC Glucose 119 H 164 H Lactic Acid Calcium AST ALT Alkaline Phosphatase CK-MB (CK-2) CK-MB (CK-2) Rel Index Total Protein Albumin TSH Urine WBC (Auto) Salicylates 01/13/17 01/13/17 01/13/17 03:37 03:37 04:26 WBC RBC 3.61 L Hgb 9.3 L Hct 28.0 L MCV 78 L MCH 26 L RDW 18.2 H Plt Count Lymph % (Auto) [place] % (Auto) Eos % (Auto) [place] # Seg Neutrophils % Seg Neuts % (Manual) Lymphocytes % (Manual) Seg Neutrophils # Seg Neutrophils # Man Lymphocytes # (Manual) APTT POC ABG pH 7.485 H ABG pH POC ABG pCO2 25.4 L POC ABG pO2 73 L ABG pO2 ABG HCO3 ABG Base Excess ABG Hemoglobin VBG pH Oxyhemoglobin Sodium Potassium Chloride 112.4 H Carbon Dioxide 19 L BUN Creatinine Glucose 118 H POC Glucose Lactic Acid Calcium 8.0 L AST ALT Alkaline Phosphatase CK-MB (CK-2) CK-MB (CK-2) Rel Index Total Protein Albumin TSH Urine WBC (Auto) Salicylates 01/13/17 01/13/17 01/13/17 06:15 11:50 17:31 WBC RBC Hgb Hct MCV MCH RDW Plt Count Lymph % (Auto) [place] % (Auto) Eos % (Auto) [place] # Seg Neutrophils % Seg Neuts % (Manual) Lymphocytes % (Manual) Seg Neutrophils # Seg Neutrophils # Man Lymphocytes # (Manual) APTT POC ABG pH ABG pH POC ABG pCO2 POC ABG pO2 ABG pO2 ABG HCO3 ABG Base Excess ABG Hemoglobin VBG pH Oxyhemoglobin Sodium Potassium Chloride Carbon Dioxide BUN Creatinine Glucose POC Glucose 116 H 171 H 203 H Lactic Acid Calcium AST ALT Alkaline Phosphatase CK-MB (CK-2) CK-MB (CK-2) Rel Index Total Protein Albumin TSH Urine WBC (Auto) Salicylates 01/14/17 01/14/17 01/14/17 00:02 04:50 04:50 WBC RBC 3.32 L Hgb 8.5 L Hct 26.1 L MCV 79 L MCH 26 L RDW 18.2 H Plt Count Lymph % (Auto) [place] % (Auto) 9.0 H Eos % (Auto) [place] # Seg Neutrophils % Seg Neuts % (Manual) Lymphocytes % (Manual) Seg Neutrophils # Seg Neutrophils # Man Lymphocytes # (Manual) APTT POC ABG pH ABG pH POC ABG pCO2 POC ABG pO2 ABG pO2 ABG HCO3 ABG Base Excess ABG Hemoglobin VBG pH Oxyhemoglobin Sodium Potassium Chloride 112.5 H Carbon Dioxide BUN Creatinine Glucose 149 H POC Glucose 157 H Lactic Acid Calcium 8.1 L AST ALT Alkaline Phosphatase CK-MB (CK-2) CK-MB (CK-2) Rel Index Total Protein Albumin TSH Urine WBC (Auto) Salicylates 01/14/17 01/14/17 01/14/17 05:10 11:27 14:07 WBC RBC Hgb Hct MCV MCH RDW Plt Count Lymph % (Auto) [place] % (Auto) Eos % (Auto) [place] # Seg Neutrophils % Seg Neuts % (Manual) Lymphocytes % (Manual) Seg Neutrophils # Seg Neutrophils # Man Lymphocytes # (Manual) APTT POC ABG pH ABG pH POC ABG pCO2 POC ABG pO2 ABG pO2 ABG HCO3 ABG Base Excess ABG Hemoglobin VBG pH Oxyhemoglobin Sodium Potassium Chloride Carbon Dioxide BUN Creatinine Glucose POC Glucose 176 H 147 H Lactic Acid Calcium AST ALT Alkaline Phosphatase CK-MB (CK-2) CK-MB (CK-2) Rel Index Total Protein Albumin TSH Urine WBC (Auto) 53.0 H Salicylates 01/14/17 01/15/17 01/15/17 16:52 00:04 05:26 WBC RBC Hgb Hct MCV MCH RDW Plt Count Lymph % (Auto) [place] % (Auto) Eos % (Auto) [place] # Seg Neutrophils % Seg Neuts % (Manual) Lymphocytes % (Manual) Seg Neutrophils # Seg Neutrophils # Man Lymphocytes # (Manual) APTT POC ABG pH ABG pH POC ABG pCO2 POC ABG pO2 ABG pO2 ABG HCO3 ABG Base Excess ABG Hemoglobin VBG pH Oxyhemoglobin Sodium Potassium Chloride Carbon Dioxide BUN Creatinine Glucose POC Glucose 131 H 193 H 215 H Lactic Acid Calcium AST ALT Alkaline Phosphatase CK-MB (CK-2) CK-MB (CK-2) Rel Index Total Protein Albumin TSH Urine WBC (Auto) Salicylates 01/15/17 01/15/17 01/15/17 11:49 17:47 21:33 WBC RBC Hgb Hct MCV MCH RDW Plt Count Lymph % (Auto) [place] % (Auto) Eos % (Auto) [place] # Seg Neutrophils % Seg Neuts % (Manual) Lymphocytes % (Manual) Seg Neutrophils # Seg Neutrophils # Man Lymphocytes # (Manual) APTT POC ABG pH ABG pH POC ABG pCO2 POC ABG pO2 ABG pO2 ABG HCO3 ABG Base Excess ABG Hemoglobin VBG pH Oxyhemoglobin Sodium Potassium Chloride Carbon Dioxide BUN Creatinine Glucose POC Glucose 121 H 211 H 275 H Lactic Acid Calcium AST ALT Alkaline Phosphatase CK-MB (CK-2) CK-MB (CK-2) Rel Index Total Protein Albumin TSH Urine WBC (Auto) Salicylates 01/16/17 01/16/17 01/16/17 04:30 05:28 13:45 WBC RBC Hgb Hct MCV MCH RDW Plt Count Lymph % (Auto) [place] % (Auto) Eos % (Auto) [place] # Seg Neutrophils % Seg Neuts % (Manual) Lymphocytes % (Manual) Seg Neutrophils # Seg Neutrophils # Man Lymphocytes # (Manual) APTT POC ABG pH ABG pH 7.457 H POC ABG pCO2 POC ABG pO2 ABG pO2 55.1 L ABG HCO3 19.4 L ABG Base Excess -4.0 L ABG Hemoglobin 6.8 L VBG pH Oxyhemoglobin 94.9 L Sodium Potassium Chloride Carbon Dioxide BUN Creatinine Glucose POC Glucose 271 H 236 H Lactic Acid Calcium AST ALT Alkaline Phosphatase CK-MB (CK-2) CK-MB (CK-2) Rel Index Total Protein Albumin TSH Urine WBC (Auto) Salicylates 01/16/17 01/17/17 01/17/17 21:39 04:10 04:10 WBC 4.4 L RBC 2.98 L Hgb 7.7 L Hct 23.3 L MCV 78 L MCH 26 L RDW 18.1 H Plt Count Lymph % (Auto) [place] % (Auto) Eos % (Auto) [place] # Seg Neutrophils % Seg Neuts % (Manual) Lymphocytes % (Manual) Seg Neutrophils # Seg Neutrophils # Man Lymphocytes # (Manual) APTT POC ABG pH ABG pH POC ABG pCO2 POC ABG pO2 ABG pO2 ABG HCO3 ABG Base Excess ABG Hemoglobin VBG pH Oxyhemoglobin Sodium Potassium 3.3 L Chloride 108.7 H Carbon Dioxide 20 L BUN 8 L Creatinine Glucose 202 H POC Glucose 258 H Lactic Acid Calcium 7.6 L AST ALT Alkaline Phosphatase CK-MB (CK-2) CK-MB (CK-2) Rel Index Total Protein Albumin TSH Urine WBC (Auto) Salicylates 01/17/17 01/17/17 01/17/17 04:35 12:23 16:01 WBC RBC Hgb Hct MCV MCH RDW Plt Count Lymph % (Auto) [place] % (Auto) Eos % (Auto) [place] # Seg Neutrophils % Seg Neuts % (Manual) Lymphocytes % (Manual) Seg Neutrophils # Seg Neutrophils # Man Lymphocytes # (Manual) APTT POC ABG pH ABG pH POC ABG pCO2 POC ABG pO2 ABG pO2 160.3 H ABG HCO3 ABG Base Excess -2.3 L ABG Hemoglobin 7.9 L VBG pH Oxyhemoglobin Sodium Potassium Chloride Carbon Dioxide BUN Creatinine Glucose POC Glucose 321 H 239 H Lactic Acid Calcium AST ALT Alkaline Phosphatase CK-MB (CK-2) CK-MB (CK-2) Rel Index Total Protein Albumin TSH Urine WBC (Auto) Salicylates 01/18/17 01/18/17 01/18/17 05:07 12:09 17:54 WBC RBC Hgb Hct MCV MCH RDW Plt Count Lymph % (Auto) [place] % (Auto) Eos % (Auto) [place] # Seg Neutrophils % Seg Neuts % (Manual) Lymphocytes % (Manual) Seg Neutrophils # Seg Neutrophils # Man Lymphocytes # (Manual) APTT POC ABG pH ABG pH POC ABG pCO2 POC ABG pO2 ABG pO2 ABG HCO3 ABG Base Excess ABG Hemoglobin VBG pH Oxyhemoglobin Sodium Potassium Chloride Carbon Dioxide BUN Creatinine Glucose POC Glucose 155 H 203 H 132 H Lactic Acid Calcium AST ALT Alkaline Phosphatase CK-MB (CK-2) CK-MB (CK-2) Rel Index Total Protein Albumin TSH Urine WBC (Auto) Salicylates 01/18/17 01/19/17 01/19/17 23:43 04:28 12:11 WBC RBC Hgb Hct MCV MCH RDW Plt Count Lymph % (Auto) [place] % (Auto) Eos % (Auto) [place] # Seg Neutrophils % Seg Neuts % (Manual) Lymphocytes % (Manual) Seg Neutrophils # Seg Neutrophils # Man Lymphocytes # (Manual) APTT POC ABG pH ABG pH POC ABG pCO2 POC ABG pO2 ABG pO2 ABG HCO3 ABG Base Excess ABG Hemoglobin VBG pH Oxyhemoglobin Sodium Potassium Chloride Carbon Dioxide BUN Creatinine Glucose POC Glucose 125 H 182 H 153 H Lactic Acid Calcium AST ALT Alkaline Phosphatase CK-MB (CK-2) CK-MB (CK-2) Rel Index Total Protein Albumin TSH Urine WBC (Auto) Salicylates 01/19/17 01/20/17 01/20/17 17:23 00:12 05:44 WBC RBC Hgb Hct MCV MCH RDW Plt Count Lymph % (Auto) [place] % (Auto) Eos % (Auto) [place] # Seg Neutrophils % Seg Neuts % (Manual) Lymphocytes % (Manual) Seg Neutrophils # Seg Neutrophils # Man Lymphocytes # (Manual) APTT POC ABG pH ABG pH POC ABG pCO2 POC ABG pO2 ABG pO2 ABG HCO3 ABG Base Excess ABG Hemoglobin VBG pH Oxyhemoglobin Sodium Potassium Chloride Carbon Dioxide BUN Creatinine Glucose POC Glucose 66 L 139 H 176 H Lactic Acid Calcium AST ALT Alkaline Phosphatase CK-MB (CK-2) CK-MB (CK-2) Rel Index Total Protein Albumin TSH Urine WBC (Auto) Salicylates 01/20/17 01/20/17 01/20/17 11:48 17:42 23:43 WBC RBC Hgb Hct MCV MCH RDW Plt Count Lymph % (Auto) [place] % (Auto) Eos % (Auto) [place] # Seg Neutrophils % Seg Neuts % (Manual) Lymphocytes % (Manual) Seg Neutrophils # Seg Neutrophils # Man Lymphocytes # (Manual) APTT POC ABG pH ABG pH POC ABG pCO2 POC ABG pO2 ABG pO2 ABG HCO3 ABG Base Excess ABG Hemoglobin VBG pH Oxyhemoglobin Sodium Potassium Chloride Carbon Dioxide BUN Creatinine Glucose POC Glucose 218 H 132 H 178 H Lactic Acid Calcium AST ALT Alkaline Phosphatase CK-MB (CK-2) CK-MB (CK-2) Rel Index Total Protein Albumin TSH Urine WBC (Auto) Salicylates 01/21/17 01/21/17 01/21/17 05:34 11:17 23:37 WBC RBC Hgb Hct MCV MCH RDW Plt Count Lymph % (Auto) [place] % (Auto) Eos % (Auto) [place] # Seg Neutrophils % Seg Neuts % (Manual) Lymphocytes % (Manual) Seg Neutrophils # Seg Neutrophils # Man Lymphocytes # (Manual) APTT POC ABG pH ABG pH POC ABG pCO2 POC ABG pO2 ABG pO2 ABG HCO3 ABG Base Excess ABG Hemoglobin VBG pH Oxyhemoglobin Sodium Potassium Chloride Carbon Dioxide BUN Creatinine Glucose POC Glucose 106 H 213 H 140 H Lactic Acid Calcium AST ALT Alkaline Phosphatase CK-MB (CK-2) CK-MB (CK-2) Rel Index Total Protein Albumin TSH Urine WBC (Auto) Salicylates 01/22/17 01/22/17 01/22/17 04:00 04:00 04:58 WBC RBC 3.26 L Hgb 8.3 L Hct 25.5 L MCV 78 L MCH 25 L RDW 17.9 H Plt Count Lymph % (Auto) [place] % (Auto) 7.9 H Eos % (Auto) 6.2 H [place] # Seg Neutrophils % Seg Neuts % (Manual) Lymphocytes % (Manual) Seg Neutrophils # Seg Neutrophils # Man Lymphocytes # (Manual) APTT POC ABG pH ABG pH POC ABG pCO2 POC ABG pO2 ABG pO2 ABG HCO3 ABG Base Excess ABG Hemoglobin VBG pH Oxyhemoglobin Sodium Potassium Chloride 95.5 L Carbon Dioxide 31 H D BUN Creatinine Glucose 134 H POC Glucose 146 H Lactic Acid Calcium AST 44 H ALT Alkaline Phosphatase 379 H CK-MB (CK-2) CK-MB (CK-2) Rel Index Total Protein Albumin 2.7 L TSH Urine WBC (Auto) Salicylates 01/22/17 01/22/17 01/22/17 12:12 18:12 23:39 WBC RBC Hgb Hct MCV MCH RDW Plt Count Lymph % (Auto) [place] % (Auto) Eos % (Auto) [place] # Seg Neutrophils % Seg Neuts % (Manual) Lymphocytes % (Manual) Seg Neutrophils # Seg Neutrophils # Man Lymphocytes # (Manual) APTT POC ABG pH ABG pH POC ABG pCO2 POC ABG pO2 ABG pO2 ABG HCO3 ABG Base Excess ABG Hemoglobin VBG pH Oxyhemoglobin Sodium Potassium Chloride Carbon Dioxide BUN Creatinine Glucose POC Glucose 255 H 182 H 134 H Lactic Acid Calcium AST ALT Alkaline Phosphatase CK-MB (CK-2) CK-MB (CK-2) Rel Index Total Protein Albumin TSH Urine WBC (Auto) Salicylates 01/23/17 01/23/17 01/23/17 04:43 12:12 17:36 WBC RBC Hgb Hct MCV MCH RDW Plt Count Lymph % (Auto) [place] % (Auto) Eos % (Auto) [place] # Seg Neutrophils % Seg Neuts % (Manual) Lymphocytes % (Manual) Seg Neutrophils # Seg Neutrophils # Man Lymphocytes # (Manual) APTT POC ABG pH ABG pH POC ABG pCO2 POC ABG pO2 ABG pO2 ABG HCO3 ABG Base Excess ABG Hemoglobin VBG pH Oxyhemoglobin Sodium Potassium Chloride Carbon Dioxide BUN Creatinine Glucose POC Glucose 218 H 128 H 156 H Lactic Acid Calcium AST ALT Alkaline Phosphatase CK-MB (CK-2) CK-MB (CK-2) Rel Index Total Protein Albumin TSH Urine WBC (Auto) Salicylates 01/24/17 01/24/17 01/24/17 00:08 05:16 11:40 WBC RBC Hgb Hct MCV MCH RDW Plt Count Lymph % (Auto) [place] % (Auto) Eos % (Auto) [place] # Seg Neutrophils % Seg Neuts % (Manual) Lymphocytes % (Manual) Seg Neutrophils # Seg Neutrophils # Man Lymphocytes # (Manual) APTT POC ABG pH ABG pH POC ABG pCO2 POC ABG pO2 ABG pO2 ABG HCO3 ABG Base Excess ABG Hemoglobin VBG pH Oxyhemoglobin Sodium Potassium Chloride Carbon Dioxide BUN Creatinine Glucose POC Glucose 129 H 169 H 187 H Lactic Acid Calcium AST ALT Alkaline Phosphatase CK-MB (CK-2) CK-MB (CK-2) Rel Index Total Protein Albumin TSH Urine WBC (Auto) Salicylates 01/24/17 01/24/17 01/25/17 17:43 23:23 04:56 WBC RBC Hgb Hct MCV MCH RDW Plt Count Lymph % (Auto) [place] % (Auto) Eos % (Auto) [place] # Seg Neutrophils % Seg Neuts % (Manual) Lymphocytes % (Manual) Seg Neutrophils # Seg Neutrophils # Man Lymphocytes # (Manual) APTT POC ABG pH ABG pH POC ABG pCO2 POC ABG pO2 ABG pO2 ABG HCO3 ABG Base Excess ABG Hemoglobin VBG pH Oxyhemoglobin Sodium Potassium Chloride Carbon Dioxide BUN Creatinine Glucose POC Glucose 215 H 222 H 210 H Lactic Acid Calcium AST ALT Alkaline Phosphatase CK-MB (CK-2) CK-MB (CK-2) Rel Index Total Protein Albumin TSH Urine WBC (Auto) Salicylates 01/25/17 01/25/17 01/26/17 11:52 17:37 00:02 WBC RBC Hgb Hct MCV MCH RDW Plt Count Lymph % (Auto) [place] % (Auto) Eos % (Auto) [place] # Seg Neutrophils % Seg Neuts % (Manual) Lymphocytes % (Manual) Seg Neutrophils # Seg Neutrophils # Man Lymphocytes # (Manual) APTT POC ABG pH ABG pH POC ABG pCO2 POC ABG pO2 ABG pO2 ABG HCO3 ABG Base Excess ABG Hemoglobin VBG pH Oxyhemoglobin Sodium Potassium Chloride Carbon Dioxide BUN Creatinine Glucose POC Glucose 284 H 218 H 192 H Lactic Acid Calcium AST ALT Alkaline Phosphatase CK-MB (CK-2) CK-MB (CK-2) Rel Index Total Protein Albumin TSH Urine WBC (Auto) Salicylates 01/26/17 01/26/17 01/26/17 05:33 12:17 17:50 WBC RBC Hgb Hct MCV MCH RDW Plt Count Lymph % (Auto) [place] % (Auto) Eos % (Auto) [place] # Seg Neutrophils % Seg Neuts % (Manual) Lymphocytes % (Manual) Seg Neutrophils # Seg Neutrophils # Man Lymphocytes # (Manual) APTT POC ABG pH ABG pH POC ABG pCO2 POC ABG pO2 ABG pO2 ABG HCO3 ABG Base Excess ABG Hemoglobin VBG pH Oxyhemoglobin Sodium Potassium Chloride Carbon Dioxide BUN Creatinine Glucose POC Glucose 199 H 227 H 229 H Lactic Acid Calcium AST ALT Alkaline Phosphatase CK-MB (CK-2) CK-MB (CK-2) Rel Index Total Protein Albumin TSH Urine WBC (Auto) Salicylates 01/26/17 01/27/17 01/27/17 23:57 05:31 11:42 WBC RBC Hgb Hct MCV MCH RDW Plt Count Lymph % (Auto) [place] % (Auto) Eos % (Auto) [place] # Seg Neutrophils % Seg Neuts % (Manual) Lymphocytes % (Manual) Seg Neutrophils # Seg Neutrophils # Man Lymphocytes # (Manual) APTT POC ABG pH ABG pH POC ABG pCO2 POC ABG pO2 ABG pO2 ABG HCO3 ABG Base Excess ABG Hemoglobin VBG pH Oxyhemoglobin Sodium Potassium Chloride Carbon Dioxide BUN Creatinine Glucose POC Glucose 186 H 285 H 260 H Lactic Acid Calcium AST ALT Alkaline Phosphatase CK-MB (CK-2) CK-MB (CK-2) Rel Index Total Protein Albumin TSH Urine WBC (Auto) Salicylates 01/27/17 01/27/17 01/27/17 17:47 23:58 Unknown WBC 12.1 H RBC 3.28 L Hgb 8.5 L Hct 25.5 L MCV 78 L MCH 26 L RDW 16.8 H Plt Count 601 H Lymph % (Auto) [place] % (Auto) Eos % (Auto) [place] # Seg Neutrophils % Seg Neuts % (Manual) Lymphocytes % (Manual) Seg Neutrophils # Seg Neutrophils # Man Lymphocytes # (Manual) APTT POC ABG pH ABG pH POC ABG pCO2 POC ABG pO2 ABG pO2 ABG HCO3 ABG Base Excess ABG Hemoglobin VBG pH Oxyhemoglobin Sodium Potassium Chloride Carbon Dioxide BUN Creatinine Glucose POC Glucose 329 H 225 H Lactic Acid Calcium AST ALT Alkaline Phosphatase CK-MB (CK-2) CK-MB (CK-2) Rel Index Total Protein Albumin TSH Urine WBC (Auto) Salicylates 01/27/17 01/28/17 01/28/17 Unknown 03:44 03:44 WBC RBC 3.14 L Hgb 8.2 L Hct 24.1 L MCV 77 L MCH 26 L RDW 16.9 H Plt Count 567 H Lymph % (Auto) [place] % (Auto) Eos % (Auto) [place] # Seg Neutrophils % Seg Neuts % (Manual) Lymphocytes % (Manual) Seg Neutrophils # Seg Neutrophils # Man Lymphocytes # (Manual) APTT POC ABG pH ABG pH POC ABG pCO2 POC ABG pO2 ABG pO2 ABG HCO3 ABG Base Excess ABG Hemoglobin VBG pH Oxyhemoglobin Sodium 128 L Potassium 5.4 H Chloride 87.5 L Carbon Dioxide BUN 44 H 42 H Creatinine Glucose 250 H 128 H POC Glucose Lactic Acid Calcium AST ALT Alkaline Phosphatase CK-MB (CK-2) CK-MB (CK-2) Rel Index Total Protein Albumin TSH Urine WBC (Auto) Salicylates 01/28/17 01/28/17 01/28/17 11:43 16:47 17:52 WBC RBC Hgb Hct MCV MCH RDW Plt Count Lymph % (Auto) [place] % (Auto) Eos % (Auto) [place] # Seg Neutrophils % Seg Neuts % (Manual) Lymphocytes % (Manual) Seg Neutrophils # Seg Neutrophils # Man Lymphocytes # (Manual) APTT POC ABG pH ABG pH POC ABG pCO2 POC ABG pO2 ABG pO2 ABG HCO3 ABG Base Excess ABG Hemoglobin VBG pH Oxyhemoglobin Sodium Potassium Chloride Carbon Dioxide BUN Creatinine Glucose POC Glucose 351 H 249 H Lactic Acid Calcium AST ALT Alkaline Phosphatase CK-MB (CK-2) CK-MB (CK-2) Rel Index Total Protein Albumin TSH Urine WBC (Auto) > 182.0 H Salicylates 01/29/17 01/29/17 01/29/17 05:25 05:25 09:32 WBC 13.6 H RBC 3.25 L Hgb 8.3 L Hct 25.1 L MCV 77 L MCH 26 L RDW 16.8 H Plt Count 514 H Lymph % (Auto) [place] % (Auto) Eos % (Auto) [place] # Seg Neutrophils % Seg Neuts % (Manual) Lymphocytes % (Manual) Seg Neutrophils # Seg Neutrophils # Man Lymphocytes # (Manual) APTT POC ABG pH ABG pH POC ABG pCO2 POC ABG pO2 ABG pO2 ABG HCO3 ABG Base Excess ABG Hemoglobin VBG pH Oxyhemoglobin Sodium Potassium Chloride 97.8 L Carbon Dioxide BUN 34 H Creatinine Glucose 222 H POC Glucose Lactic Acid 2.50 H* Calcium AST ALT Alkaline Phosphatase CK-MB (CK-2) CK-MB (CK-2) Rel Index Total Protein Albumin TSH Urine WBC (Auto) Salicylates 01/29/17 01/29/17 01/29/17 11:56 18:11 23:55 WBC RBC Hgb Hct MCV MCH RDW Plt Count Lymph % (Auto) [place] % (Auto) Eos % (Auto) [place] # Seg Neutrophils % Seg Neuts % (Manual) Lymphocytes % (Manual) Seg Neutrophils # Seg Neutrophils # Man Lymphocytes # (Manual) APTT POC ABG pH ABG pH POC ABG pCO2 POC ABG pO2 ABG pO2 ABG HCO3 ABG Base Excess ABG Hemoglobin VBG pH Oxyhemoglobin Sodium Potassium Chloride Carbon Dioxide BUN Creatinine Glucose POC Glucose 261 H 215 H 176 H Lactic Acid Calcium AST ALT Alkaline Phosphatase CK-MB (CK-2) CK-MB (CK-2) Rel Index Total Protein Albumin TSH Urine WBC (Auto) Salicylates 01/30/17 01/30/17 01/30/17 05:31 05:31 05:34 WBC 15.2 H RBC 3.09 L Hgb 7.9 L Hct 23.9 L MCV 77 L MCH 26 L RDW 16.9 H Plt Count 569 H Lymph % (Auto) [place] % (Auto) Eos % (Auto) [place] # Seg Neutrophils % Seg Neuts % (Manual) Lymphocytes % (Manual) Seg Neutrophils # Seg Neutrophils # Man Lymphocytes # (Manual) APTT POC ABG pH ABG pH POC ABG pCO2 POC ABG pO2 ABG pO2 ABG HCO3 ABG Base Excess ABG Hemoglobin VBG pH Oxyhemoglobin Sodium Potassium Chloride Carbon Dioxide BUN 24 H Creatinine Glucose 235 H POC Glucose 243 H Lactic Acid Calcium AST ALT Alkaline Phosphatase CK-MB (CK-2) CK-MB (CK-2) Rel Index Total Protein Albumin TSH Urine WBC (Auto) Salicylates 01/30/17 01/30/17 01/30/17 11:38 17:58 23:29 WBC RBC Hgb Hct MCV MCH RDW Plt Count Lymph % (Auto) [place] % (Auto) Eos % (Auto) [place] # Seg Neutrophils % Seg Neuts % (Manual) Lymphocytes % (Manual) Seg Neutrophils # Seg Neutrophils # Man Lymphocytes # (Manual) APTT POC ABG pH ABG pH POC ABG pCO2 POC ABG pO2 ABG pO2 ABG HCO3 ABG Base Excess ABG Hemoglobin VBG pH Oxyhemoglobin Sodium Potassium Chloride Carbon Dioxide BUN Creatinine Glucose POC Glucose 298 H 208 H 245 H Lactic Acid Calcium AST ALT Alkaline Phosphatase CK-MB (CK-2) CK-MB (CK-2) Rel Index Total Protein Albumin TSH Urine WBC (Auto) Salicylates 01/31/17 01/31/17 01/31/17 04:39 04:39 05:57 WBC 11.4 H RBC 3.22 L Hgb 8.2 L Hct 24.9 L MCV 78 L MCH 25 L RDW 17.2 H Plt Count 576 H Lymph % (Auto) [place] % (Auto) Eos % (Auto) [place] # Seg Neutrophils % Seg Neuts % (Manual) Lymphocytes % (Manual) Seg Neutrophils # Seg Neutrophils # Man Lymphocytes # (Manual) APTT POC ABG pH ABG pH POC ABG pCO2 POC ABG pO2 ABG pO2 ABG HCO3 ABG Base Excess ABG Hemoglobin VBG pH Oxyhemoglobin Sodium Potassium Chloride Carbon Dioxide BUN Creatinine 0.7 L Glucose 223 H POC Glucose 264 H Lactic Acid Calcium AST ALT Alkaline Phosphatase CK-MB (CK-2) CK-MB (CK-2) Rel Index Total Protein Albumin TSH Urine WBC (Auto) Salicylates 01/31/17 01/31/17 01/31/17 12:23 17:41 18:55 WBC RBC Hgb Hct MCV MCH RDW Plt Count Lymph % (Auto) [place] % (Auto) Eos % (Auto) [place] # Seg Neutrophils % Seg Neuts % (Manual) Lymphocytes % (Manual) Seg Neutrophils # Seg Neutrophils # Man Lymphocytes # (Manual) APTT POC ABG pH ABG pH POC ABG pCO2 32.8 L POC ABG pO2 ABG pO2 ABG HCO3 ABG Base Excess ABG Hemoglobin VBG pH Oxyhemoglobin Sodium Potassium Chloride Carbon Dioxide BUN Creatinine Glucose POC Glucose 252 H 208 H Lactic Acid Calcium AST ALT Alkaline Phosphatase CK-MB (CK-2) CK-MB (CK-2) Rel Index Total Protein Albumin TSH Urine WBC (Auto) Salicylates 01/31/17 02/01/17 02/01/17 22:59 03:38 03:38 WBC RBC 2.81 L Hgb 7.4 L Hct 22.1 L MCV 79 L MCH 27 L RDW 17.0 H Plt Count 540 H Lymph % (Auto) [place] % (Auto) Eos % (Auto) [place] # Seg Neutrophils % Seg Neuts % (Manual) Lymphocytes % (Manual) Seg Neutrophils # Seg Neutrophils # Man Lymphocytes # (Manual) APTT POC ABG pH ABG pH POC ABG pCO2 POC ABG pO2 ABG pO2 ABG HCO3 ABG Base Excess ABG Hemoglobin VBG pH Oxyhemoglobin Sodium Potassium Chloride Carbon Dioxide 21 L BUN Creatinine 0.7 L Glucose POC Glucose 40 L Lactic Acid Calcium AST ALT Alkaline Phosphatase CK-MB (CK-2) CK-MB (CK-2) Rel Index Total Protein Albumin TSH Urine WBC (Auto) Salicylates 02/01/17 02/01/17 02/01/17 05:17 12:19 16:44 WBC RBC Hgb Hct MCV MCH RDW Plt Count Lymph % (Auto) [place] % (Auto) Eos % (Auto) [place] # Seg Neutrophils % Seg Neuts % (Manual) Lymphocytes % (Manual) Seg Neutrophils # Seg Neutrophils # Man Lymphocytes # (Manual) APTT POC ABG pH ABG pH POC ABG pCO2 POC ABG pO2 ABG pO2 ABG HCO3 ABG Base Excess ABG Hemoglobin VBG pH Oxyhemoglobin Sodium Potassium Chloride Carbon Dioxide BUN Creatinine Glucose POC Glucose 140 H 213 H 172 H Lactic Acid Calcium AST ALT Alkaline Phosphatase CK-MB (CK-2) CK-MB (CK-2) Rel Index Total Protein Albumin TSH Urine WBC (Auto) Salicylates 02/01/17 02/02/17 02/02/17 23:59 05:14 11:24 WBC RBC Hgb Hct MCV MCH RDW Plt Count Lymph % (Auto) [place] % (Auto) Eos % (Auto) [place] # Seg Neutrophils % Seg Neuts % (Manual) Lymphocytes % (Manual) Seg Neutrophils # Seg Neutrophils # Man Lymphocytes # (Manual) APTT POC ABG pH ABG pH POC ABG pCO2 POC ABG pO2 ABG pO2 ABG HCO3 ABG Base Excess ABG Hemoglobin VBG pH Oxyhemoglobin Sodium Potassium Chloride Carbon Dioxide BUN Creatinine Glucose POC Glucose 181 H 194 H 209 H Lactic Acid Calcium AST ALT Alkaline Phosphatase CK-MB (CK-2) CK-MB (CK-2) Rel Index Total Protein Albumin TSH Urine WBC (Auto) Salicylates 02/02/17 02/02/17 02/02/17 11:46 11:46 17:47 WBC RBC 2.94 L Hgb 7.5 L Hct 23.0 L MCV 78 L MCH 25 L RDW 16.9 H Plt Count 520 H Lymph % (Auto) [place] % (Auto) Eos % (Auto) [place] # Seg Neutrophils % Seg Neuts % (Manual) Lymphocytes % (Manual) Seg Neutrophils # Seg Neutrophils # Man Lymphocytes # (Manual) APTT POC ABG pH ABG pH POC ABG pCO2 POC ABG pO2 ABG pO2 ABG HCO3 ABG Base Excess ABG Hemoglobin VBG pH Oxyhemoglobin Sodium Potassium Chloride Carbon Dioxide BUN Creatinine 0.6 L Glucose 189 H POC Glucose 147 H Lactic Acid Calcium 8.1 L AST ALT Alkaline Phosphatase CK-MB (CK-2) CK-MB (CK-2) Rel Index Total Protein Albumin TSH Urine WBC (Auto) Salicylates 02/02/17 02/03/17 02/03/17 23:32 05:53 11:19 WBC RBC Hgb Hct MCV MCH RDW Plt Count Lymph % (Auto) [place] % (Auto) Eos % (Auto) [place] # Seg Neutrophils % Seg Neuts % (Manual) Lymphocytes % (Manual) Seg Neutrophils # Seg Neutrophils # Man Lymphocytes # (Manual) APTT POC ABG pH ABG pH POC ABG pCO2 POC ABG pO2 ABG pO2 ABG HCO3 ABG Base Excess ABG Hemoglobin VBG pH Oxyhemoglobin Sodium Potassium Chloride Carbon Dioxide BUN Creatinine Glucose POC Glucose 176 H 224 H 228 H Lactic Acid Calcium AST ALT Alkaline Phosphatase CK-MB (CK-2) CK-MB (CK-2) Rel Index Total Protein Albumin TSH Urine WBC (Auto) Salicylates 02/03/17 02/03/17 02/04/17 16:59 23:38 05:45 WBC RBC Hgb Hct MCV MCH RDW Plt Count Lymph % (Auto) [place] % (Auto) Eos % (Auto) [place] # Seg Neutrophils % Seg Neuts % (Manual) Lymphocytes % (Manual) Seg Neutrophils # Seg Neutrophils # Man Lymphocytes # (Manual) APTT POC ABG pH ABG pH POC ABG pCO2 POC ABG pO2 ABG pO2 ABG HCO3 ABG Base Excess ABG Hemoglobin VBG pH Oxyhemoglobin Sodium Potassium Chloride Carbon Dioxide BUN Creatinine Glucose POC Glucose 189 H 191 H 251 H Lactic Acid Calcium AST ALT Alkaline Phosphatase CK-MB (CK-2) CK-MB (CK-2) Rel Index Total Protein Albumin TSH Urine WBC (Auto) Salicylates 02/04/17 02/04/17 02/05/17 11:20 17:20 00:17 WBC RBC Hgb Hct MCV MCH RDW Plt Count Lymph % (Auto) [place] % (Auto) Eos % (Auto) [place] # Seg Neutrophils % Seg Neuts % (Manual) Lymphocytes % (Manual) Seg Neutrophils # Seg Neutrophils # Man Lymphocytes # (Manual) APTT POC ABG pH ABG pH POC ABG pCO2 POC ABG pO2 ABG pO2 ABG HCO3 ABG Base Excess ABG Hemoglobin VBG pH Oxyhemoglobin Sodium Potassium Chloride Carbon Dioxide BUN Creatinine Glucose POC Glucose 243 H 163 H 200 H Lactic Acid Calcium AST ALT Alkaline Phosphatase CK-MB (CK-2) CK-MB (CK-2) Rel Index Total Protein Albumin TSH Urine WBC (Auto) Salicylates 02/05/17 02/05/17 02/05/17 05:38 12:38 16:29 WBC RBC Hgb Hct MCV MCH RDW Plt Count Lymph % (Auto) [place] % (Auto) Eos % (Auto) [place] # Seg Neutrophils % Seg Neuts % (Manual) Lymphocytes % (Manual) Seg Neutrophils # Seg Neutrophils # Man Lymphocytes # (Manual) APTT POC ABG pH ABG pH POC ABG pCO2 POC ABG pO2 ABG pO2 ABG HCO3 ABG Base Excess ABG Hemoglobin VBG pH Oxyhemoglobin Sodium Potassium Chloride Carbon Dioxide BUN Creatinine Glucose POC Glucose 248 H 241 H 257 H Lactic Acid Calcium AST ALT Alkaline Phosphatase CK-MB (CK-2) CK-MB (CK-2) Rel Index Total Protein Albumin TSH Urine WBC (Auto) Salicylates 02/05/17 02/06/17 02/06/17 23:56 05:30 11:50 WBC RBC Hgb Hct MCV MCH RDW Plt Count Lymph % (Auto) [place] % (Auto) Eos % (Auto) [place] # Seg Neutrophils % Seg Neuts % (Manual) Lymphocytes % (Manual) Seg Neutrophils # Seg Neutrophils # Man Lymphocytes # (Manual) APTT POC ABG pH ABG pH POC ABG pCO2 POC ABG pO2 ABG pO2 ABG HCO3 ABG Base Excess ABG Hemoglobin VBG pH Oxyhemoglobin Sodium Potassium Chloride Carbon Dioxide BUN Creatinine Glucose POC Glucose 258 H 120 H 254 H Lactic Acid Calcium AST ALT Alkaline Phosphatase CK-MB (CK-2) CK-MB (CK-2) Rel Index Total Protein Albumin TSH Urine WBC (Auto) Salicylates 02/06/17 02/06/17 02/07/17 17:11 23:50 05:22 WBC RBC Hgb Hct MCV MCH RDW Plt Count Lymph % (Auto) [place] % (Auto) Eos % (Auto) [place] # Seg Neutrophils % Seg Neuts % (Manual) Lymphocytes % (Manual) Seg Neutrophils # Seg Neutrophils # Man Lymphocytes # (Manual) APTT POC ABG pH ABG pH POC ABG pCO2 POC ABG pO2 ABG pO2 ABG HCO3 ABG Base Excess ABG Hemoglobin VBG pH Oxyhemoglobin Sodium Potassium Chloride Carbon Dioxide BUN Creatinine Glucose POC Glucose 149 H 240 H 258 H Lactic Acid Calcium AST ALT Alkaline Phosphatase CK-MB (CK-2) CK-MB (CK-2) Rel Index Total Protein Albumin TSH Urine WBC (Auto) Salicylates 02/07/17 02/07/17 02/07/17 11:15 18:33 23:59 WBC RBC Hgb Hct MCV MCH RDW Plt Count Lymph % (Auto) [place] % (Auto) Eos % (Auto) [place] # Seg Neutrophils % Seg Neuts % (Manual) Lymphocytes % (Manual) Seg Neutrophils # Seg Neutrophils # Man Lymphocytes # (Manual) APTT POC ABG pH ABG pH POC ABG pCO2 POC ABG pO2 ABG pO2 ABG HCO3 ABG Base Excess ABG Hemoglobin VBG pH Oxyhemoglobin Sodium Potassium Chloride Carbon Dioxide BUN Creatinine Glucose POC Glucose 239 H 176 H 186 H Lactic Acid Calcium AST ALT Alkaline Phosphatase CK-MB (CK-2) CK-MB (CK-2) Rel Index Total Protein Albumin TSH Urine WBC (Auto) Salicylates 02/08/17 02/08/17 02/08/17 06:15 11:55 16:55 WBC RBC Hgb Hct MCV MCH RDW Plt Count Lymph % (Auto) [place] % (Auto) Eos % (Auto) [place] # Seg Neutrophils % Seg Neuts % (Manual) Lymphocytes % (Manual) Seg Neutrophils # Seg Neutrophils # Man Lymphocytes # (Manual) APTT POC ABG pH ABG pH POC ABG pCO2 POC ABG pO2 ABG pO2 ABG HCO3 ABG Base Excess ABG Hemoglobin VBG pH Oxyhemoglobin Sodium Potassium Chloride Carbon Dioxide BUN Creatinine Glucose POC Glucose 195 H 129 H 246 H Lactic Acid Calcium AST ALT Alkaline Phosphatase CK-MB (CK-2) CK-MB (CK-2) Rel Index Total Protein Albumin TSH Urine WBC (Auto) Salicylates 02/08/17 02/09/17 02/09/17 23:51 05:51 07:24 WBC 14.7 H RBC 3.39 L Hgb 8.9 L Hct 26.4 L MCV 78 L MCH 26 L RDW 18.4 H Plt Count 670 H Lymph % (Auto) 11.8 L [place] % (Auto) Eos % (Auto) [place] # Seg Neutrophils % 81.2 H Seg Neuts % (Manual) Lymphocytes % (Manual) Seg Neutrophils # 11.9 H Seg Neutrophils # Man Lymphocytes # (Manual) APTT POC ABG pH ABG pH POC ABG pCO2 POC ABG pO2 ABG pO2 ABG HCO3 ABG Base Excess ABG Hemoglobin VBG pH Oxyhemoglobin Sodium Potassium Chloride Carbon Dioxide BUN Creatinine Glucose POC Glucose 262 H 295 H Lactic Acid Calcium AST ALT Alkaline Phosphatase CK-MB (CK-2) CK-MB (CK-2) Rel Index Total Protein Albumin TSH Urine WBC (Auto) Salicylates 02/09/17 02/09/17 02/09/17 07:24 12:08 18:39 WBC RBC Hgb Hct MCV MCH RDW Plt Count Lymph % (Auto) [place] % (Auto) Eos % (Auto) [place] # Seg Neutrophils % Seg Neuts % (Manual) Lymphocytes % (Manual) Seg Neutrophils # Seg Neutrophils # Man Lymphocytes # (Manual) APTT POC ABG pH ABG pH POC ABG pCO2 POC ABG pO2 ABG pO2 ABG HCO3 ABG Base Excess ABG Hemoglobin VBG pH Oxyhemoglobin Sodium Potassium Chloride 95.5 L Carbon Dioxide BUN 52 H Creatinine Glucose 277 H POC Glucose 236 H 151 H Lactic Acid Calcium AST ALT Alkaline Phosphatase CK-MB (CK-2) CK-MB (CK-2) Rel Index Total Protein Albumin TSH Urine WBC (Auto) Salicylates 02/10/17 02/10/17 02/10/17 00:01 05:44 11:21 WBC RBC Hgb Hct MCV MCH RDW Plt Count Lymph % (Auto) [place] % (Auto) Eos % (Auto) [place] # Seg Neutrophils % Seg Neuts % (Manual) Lymphocytes % (Manual) Seg Neutrophils # Seg Neutrophils # Man Lymphocytes # (Manual) APTT POC ABG pH ABG pH POC ABG pCO2 POC ABG pO2 ABG pO2 ABG HCO3 ABG Base Excess ABG Hemoglobin VBG pH Oxyhemoglobin Sodium Potassium Chloride Carbon Dioxide BUN Creatinine Glucose POC Glucose 210 H 201 H 233 H Lactic Acid Calcium AST ALT Alkaline Phosphatase CK-MB (CK-2) CK-MB (CK-2) Rel Index Total Protein Albumin TSH Urine WBC (Auto) Salicylates 02/10/17 02/10/17 02/11/17 17:29 23:56 05:24 WBC RBC Hgb Hct MCV MCH RDW Plt Count Lymph % (Auto) [place] % (Auto) Eos % (Auto) [place] # Seg Neutrophils % Seg Neuts % (Manual) Lymphocytes % (Manual) Seg Neutrophils # Seg Neutrophils # Man Lymphocytes # (Manual) APTT POC ABG pH ABG pH POC ABG pCO2 POC ABG pO2 ABG pO2 ABG HCO3 ABG Base Excess ABG Hemoglobin VBG pH Oxyhemoglobin Sodium Potassium Chloride Carbon Dioxide BUN Creatinine Glucose POC Glucose 167 H 191 H 135 H Lactic Acid Calcium AST ALT Alkaline Phosphatase CK-MB (CK-2) CK-MB (CK-2) Rel Index Total Protein Albumin TSH Urine WBC (Auto) Salicylates 02/11/17 02/11/17 02/11/17 12:25 17:03 23:59 WBC RBC Hgb Hct MCV MCH RDW Plt Count Lymph % (Auto) [place] % (Auto) Eos % (Auto) [place] # Seg Neutrophils % Seg Neuts % (Manual) Lymphocytes % (Manual) Seg Neutrophils # Seg Neutrophils # Man Lymphocytes # (Manual) APTT POC ABG pH ABG pH POC ABG pCO2 POC ABG pO2 ABG pO2 ABG HCO3 ABG Base Excess ABG Hemoglobin VBG pH Oxyhemoglobin Sodium Potassium Chloride Carbon Dioxide BUN Creatinine Glucose POC Glucose 275 H 172 H 215 H Lactic Acid Calcium AST ALT Alkaline Phosphatase CK-MB (CK-2) CK-MB (CK-2) Rel Index Total Protein Albumin TSH Urine WBC (Auto) Salicylates 02/12/17 02/12/17 02/12/17 05:39 11:33 17:55 WBC RBC Hgb Hct MCV MCH RDW Plt Count Lymph % (Auto) [place] % (Auto) Eos % (Auto) [place] # Seg Neutrophils % Seg Neuts % (Manual) Lymphocytes % (Manual) Seg Neutrophils # Seg Neutrophils # Man Lymphocytes # (Manual) APTT POC ABG pH ABG pH POC ABG pCO2 POC ABG pO2 ABG pO2 ABG HCO3 ABG Base Excess ABG Hemoglobin VBG pH Oxyhemoglobin Sodium Potassium Chloride Carbon Dioxide BUN Creatinine Glucose POC Glucose 261 H 217 H 172 H Lactic Acid Calcium AST ALT Alkaline Phosphatase CK-MB (CK-2) CK-MB (CK-2) Rel Index Total Protein Albumin TSH Urine WBC (Auto) Salicylates 02/13/17 02/13/17 02/13/17 00:25 06:46 11:26 WBC RBC Hgb Hct MCV MCH RDW Plt Count Lymph % (Auto) [place] % (Auto) Eos % (Auto) [place] # Seg Neutrophils % Seg Neuts % (Manual) Lymphocytes % (Manual) Seg Neutrophils # Seg Neutrophils # Man Lymphocytes # (Manual) APTT POC ABG pH ABG pH POC ABG pCO2 POC ABG pO2 ABG pO2 ABG HCO3 ABG Base Excess ABG Hemoglobin VBG pH Oxyhemoglobin Sodium Potassium Chloride Carbon Dioxide BUN Creatinine Glucose POC Glucose 207 H 219 H 231 H Lactic Acid Calcium AST ALT Alkaline Phosphatase CK-MB (CK-2) CK-MB (CK-2) Rel Index Total Protein Albumin TSH Urine WBC (Auto) Salicylates 02/13/17 02/13/17 02/14/17 17:12 23:44 05:44 WBC RBC Hgb Hct MCV MCH RDW Plt Count Lymph % (Auto) [place] % (Auto) Eos % (Auto) [place] # Seg Neutrophils % Seg Neuts % (Manual) Lymphocytes % (Manual) Seg Neutrophils # Seg Neutrophils # Man Lymphocytes # (Manual) APTT POC ABG pH ABG pH POC ABG pCO2 POC ABG pO2 ABG pO2 ABG HCO3 ABG Base Excess ABG Hemoglobin VBG pH Oxyhemoglobin Sodium Potassium Chloride Carbon Dioxide BUN Creatinine Glucose POC Glucose 190 H 256 H 184 H Lactic Acid Calcium AST ALT Alkaline Phosphatase CK-MB (CK-2) CK-MB (CK-2) Rel Index Total Protein Albumin TSH Urine WBC (Auto) Salicylates 02/14/17 02/14/17 02/14/17 12:21 17:57 23:18 WBC RBC Hgb Hct MCV MCH RDW Plt Count Lymph % (Auto) [place] % (Auto) Eos % (Auto) [place] # Seg Neutrophils % Seg Neuts % (Manual) Lymphocytes % (Manual) Seg Neutrophils # Seg Neutrophils # Man Lymphocytes # (Manual) APTT POC ABG pH ABG pH POC ABG pCO2 POC ABG pO2 ABG pO2 ABG HCO3 ABG Base Excess ABG Hemoglobin VBG pH Oxyhemoglobin Sodium Potassium Chloride Carbon Dioxide BUN Creatinine Glucose POC Glucose 233 H 155 H 165 H Lactic Acid Calcium AST ALT Alkaline Phosphatase CK-MB (CK-2) CK-MB (CK-2) Rel Index Total Protein Albumin TSH Urine WBC (Auto) Salicylates 02/15/17 02/15/17 02/15/17 05:33 11:45 17:20 WBC RBC Hgb Hct MCV MCH RDW Plt Count Lymph % (Auto) [place] % (Auto) Eos % (Auto) [place] # Seg Neutrophils % Seg Neuts % (Manual) Lymphocytes % (Manual) Seg Neutrophils # Seg Neutrophils # Man Lymphocytes # (Manual) APTT POC ABG pH ABG pH POC ABG pCO2 POC ABG pO2 ABG pO2 ABG HCO3 ABG Base Excess ABG Hemoglobin VBG pH Oxyhemoglobin Sodium Potassium Chloride Carbon Dioxide BUN Creatinine Glucose POC Glucose 239 H 130 H 189 H Lactic Acid Calcium AST ALT Alkaline Phosphatase CK-MB (CK-2) CK-MB (CK-2) Rel Index Total Protein Albumin TSH Urine WBC (Auto) Salicylates 02/16/17 02/16/17 02/16/17 00:14 05:09 12:31 WBC RBC Hgb Hct MCV MCH RDW Plt Count Lymph % (Auto) [place] % (Auto) Eos % (Auto) [place] # Seg Neutrophils % Seg Neuts % (Manual) Lymphocytes % (Manual) Seg Neutrophils # Seg Neutrophils # Man Lymphocytes # (Manual) APTT POC ABG pH ABG pH POC ABG pCO2 POC ABG pO2 ABG pO2 ABG HCO3 ABG Base Excess ABG Hemoglobin VBG pH Oxyhemoglobin Sodium Potassium Chloride Carbon Dioxide BUN Creatinine Glucose POC Glucose 197 H 226 H 178 H Lactic Acid Calcium AST ALT Alkaline Phosphatase CK-MB (CK-2) CK-MB (CK-2) Rel Index Total Protein Albumin TSH Urine WBC (Auto) Salicylates 02/16/17 02/16/17 02/17/17 16:35 23:49 05:37 WBC RBC Hgb Hct MCV MCH RDW Plt Count Lymph % (Auto) [place] % (Auto) Eos % (Auto) [place] # Seg Neutrophils % Seg Neuts % (Manual) Lymphocytes % (Manual) Seg Neutrophils # Seg Neutrophils # Man Lymphocytes # (Manual) APTT POC ABG pH ABG pH POC ABG pCO2 POC ABG pO2 ABG pO2 ABG HCO3 ABG Base Excess ABG Hemoglobin VBG pH Oxyhemoglobin Sodium Potassium Chloride Carbon Dioxide BUN Creatinine Glucose POC Glucose 174 H 62 L 153 H Lactic Acid Calcium AST ALT Alkaline Phosphatase CK-MB (CK-2) CK-MB (CK-2) Rel Index Total Protein Albumin TSH Urine WBC (Auto) Salicylates 02/17/17 02/17/17 02/17/17 11:39 17:02 22:24 WBC RBC Hgb Hct MCV MCH RDW Plt Count Lymph % (Auto) [place] % (Auto) Eos % (Auto) [place] # Seg Neutrophils % Seg Neuts % (Manual) Lymphocytes % (Manual) Seg Neutrophils # Seg Neutrophils # Man Lymphocytes # (Manual) APTT POC ABG pH ABG pH POC ABG pCO2 POC ABG pO2 ABG pO2 ABG HCO3 ABG Base Excess ABG Hemoglobin VBG pH Oxyhemoglobin Sodium Potassium Chloride Carbon Dioxide BUN Creatinine Glucose POC Glucose 231 H 112 H 116 H Lactic Acid Calcium AST ALT Alkaline Phosphatase CK-MB (CK-2) CK-MB (CK-2) Rel Index Total Protein Albumin TSH Urine WBC (Auto) Salicylates 02/18/17 02/19/17 02/19/17 15:34 05:09 07:57 WBC RBC Hgb Hct MCV MCH RDW Plt Count Lymph % (Auto) [place] % (Auto) Eos % (Auto) [place] # Seg Neutrophils % Seg Neuts % (Manual) Lymphocytes % (Manual) Seg Neutrophils # Seg Neutrophils # Man Lymphocytes # (Manual) APTT POC ABG pH ABG pH POC ABG pCO2 POC ABG pO2 ABG pO2 ABG HCO3 ABG Base Excess ABG Hemoglobin VBG pH Oxyhemoglobin Sodium Potassium Chloride Carbon Dioxide BUN Creatinine Glucose POC Glucose 215 H 218 H 283 H Lactic Acid Calcium AST ALT Alkaline Phosphatase CK-MB (CK-2) CK-MB (CK-2) Rel Index Total Protein Albumin TSH Urine WBC (Auto) Salicylates 02/19/17 02/19/17 02/20/17 14:49 22:10 05:10 WBC RBC Hgb Hct MCV MCH RDW Plt Count Lymph % (Auto) [place] % (Auto) Eos % (Auto) [place] # Seg Neutrophils % Seg Neuts % (Manual) Lymphocytes % (Manual) Seg Neutrophils # Seg Neutrophils # Man Lymphocytes # (Manual) APTT POC ABG pH ABG pH POC ABG pCO2 POC ABG pO2 ABG pO2 ABG HCO3 ABG Base Excess ABG Hemoglobin VBG pH Oxyhemoglobin Sodium Potassium Chloride Carbon Dioxide BUN Creatinine Glucose POC Glucose 290 H 169 H 209 H Lactic Acid Calcium AST ALT Alkaline Phosphatase CK-MB (CK-2) CK-MB (CK-2) Rel Index Total Protein Albumin TSH Urine WBC (Auto) Salicylates 02/20/17 02/20/17 02/21/17 15:05 21:52 02:00 WBC RBC Hgb Hct MCV MCH RDW Plt Count Lymph % (Auto) [place] % (Auto) Eos % (Auto) [place] # Seg Neutrophils % Seg Neuts % (Manual) Lymphocytes % (Manual) Seg Neutrophils # Seg Neutrophils # Man Lymphocytes # (Manual) APTT POC ABG pH ABG pH POC ABG pCO2 POC ABG pO2 ABG pO2 ABG HCO3 ABG Base Excess ABG Hemoglobin VBG pH Oxyhemoglobin Sodium Potassium Chloride Carbon Dioxide BUN Creatinine Glucose POC Glucose 172 H 209 H 216 H Lactic Acid Calcium AST ALT Alkaline Phosphatase CK-MB (CK-2) CK-MB (CK-2) Rel Index Total Protein Albumin TSH Urine WBC (Auto) Salicylates 02/21/17 02/21/17 02/21/17 04:54 14:43 17:47 WBC RBC Hgb Hct MCV MCH RDW Plt Count Lymph % (Auto) [place] % (Auto) Eos % (Auto) [place] # Seg Neutrophils % Seg Neuts % (Manual) Lymphocytes % (Manual) Seg Neutrophils # Seg Neutrophils # Man Lymphocytes # (Manual) APTT POC ABG pH ABG pH POC ABG pCO2 POC ABG pO2 ABG pO2 ABG HCO3 ABG Base Excess ABG Hemoglobin VBG pH Oxyhemoglobin Sodium Potassium Chloride Carbon Dioxide BUN Creatinine Glucose POC Glucose 227 H 290 H 220 H Lactic Acid Calcium AST ALT Alkaline Phosphatase CK-MB (CK-2) CK-MB (CK-2) Rel Index Total Protein Albumin TSH Urine WBC (Auto) Salicylates 02/21/17 02/22/17 02/22/17 22:02 04:52 15:25 WBC RBC Hgb Hct MCV MCH RDW Plt Count Lymph % (Auto) [place] % (Auto) Eos % (Auto) [place] # Seg Neutrophils % Seg Neuts % (Manual) Lymphocytes % (Manual) Seg Neutrophils # Seg Neutrophils # Man Lymphocytes # (Manual) APTT POC ABG pH ABG pH POC ABG pCO2 POC ABG pO2 ABG pO2 ABG HCO3 ABG Base Excess ABG Hemoglobin VBG pH Oxyhemoglobin Sodium Potassium Chloride Carbon Dioxide BUN Creatinine Glucose POC Glucose 246 H 212 H 236 H Lactic Acid Calcium AST ALT Alkaline Phosphatase CK-MB (CK-2) CK-MB (CK-2) Rel Index Total Protein Albumin TSH Urine WBC (Auto) Salicylates 02/22/17 02/23/17 02/23/17 21:33 06:04 10:00 WBC RBC Hgb Hct MCV MCH RDW Plt Count Lymph % (Auto) [place] % (Auto) Eos % (Auto) [place] # Seg Neutrophils % Seg Neuts % (Manual) Lymphocytes % (Manual) Seg Neutrophils # Seg Neutrophils # Man Lymphocytes # (Manual) APTT POC ABG pH ABG pH POC ABG pCO2 POC ABG pO2 ABG pO2 ABG HCO3 ABG Base Excess ABG Hemoglobin VBG pH Oxyhemoglobin Sodium Potassium Chloride Carbon Dioxide BUN Creatinine Glucose POC Glucose 255 H 208 H 174 H Lactic Acid Calcium AST ALT Alkaline Phosphatase CK-MB (CK-2) CK-MB (CK-2) Rel Index Total Protein Albumin TSH Urine WBC (Auto) Salicylates 02/23/17 02/23/17 02/23/17 12:52 17:15 21:51 WBC RBC Hgb Hct MCV MCH RDW Plt Count Lymph % (Auto) [place] % (Auto) Eos % (Auto) [place] # Seg Neutrophils % Seg Neuts % (Manual) Lymphocytes % (Manual) Seg Neutrophils # Seg Neutrophils # Man Lymphocytes # (Manual) APTT POC ABG pH ABG pH POC ABG pCO2 POC ABG pO2 ABG pO2 ABG HCO3 ABG Base Excess ABG Hemoglobin VBG pH Oxyhemoglobin Sodium Potassium Chloride Carbon Dioxide BUN Creatinine Glucose POC Glucose 203 H 269 H 205 H Lactic Acid Calcium AST ALT Alkaline Phosphatase CK-MB (CK-2) CK-MB (CK-2) Rel Index Total Protein Albumin TSH Urine WBC (Auto) Salicylates 02/24/17 02/24/17 02/24/17 10:23 17:45 21:24 WBC RBC Hgb Hct MCV MCH RDW Plt Count Lymph % (Auto) [place] % (Auto) Eos % (Auto) [place] # Seg Neutrophils % Seg Neuts % (Manual) Lymphocytes % (Manual) Seg Neutrophils # Seg Neutrophils # Man Lymphocytes # (Manual) APTT POC ABG pH ABG pH POC ABG pCO2 POC ABG pO2 ABG pO2 ABG HCO3 ABG Base Excess ABG Hemoglobin VBG pH Oxyhemoglobin Sodium Potassium Chloride Carbon Dioxide BUN Creatinine Glucose POC Glucose 280 H 239 H 254 H Lactic Acid Calcium AST ALT Alkaline Phosphatase CK-MB (CK-2) CK-MB (CK-2) Rel Index Total Protein Albumin TSH Urine WBC (Auto) Salicylates 02/25/17 02/25/17 02/25/17 02:12 05:17 14:32 WBC RBC Hgb Hct MCV MCH RDW Plt Count Lymph % (Auto) [place] % (Auto) Eos % (Auto) [place] # Seg Neutrophils % Seg Neuts % (Manual) Lymphocytes % (Manual) Seg Neutrophils # Seg Neutrophils # Man Lymphocytes # (Manual) APTT POC ABG pH ABG pH POC ABG pCO2 POC ABG pO2 ABG pO2 ABG HCO3 ABG Base Excess ABG Hemoglobin VBG pH Oxyhemoglobin Sodium Potassium Chloride Carbon Dioxide BUN Creatinine Glucose POC Glucose 296 H 332 H 353 H Lactic Acid Calcium AST ALT Alkaline Phosphatase CK-MB (CK-2) CK-MB (CK-2) Rel Index Total Protein Albumin TSH Urine WBC (Auto) Salicylates 02/25/17 02/26/17 02/26/17 22:14 00:37 05:52 WBC RBC Hgb Hct MCV MCH RDW Plt Count Lymph % (Auto) [place] % (Auto) Eos % (Auto) [place] # Seg Neutrophils % Seg Neuts % (Manual) Lymphocytes % (Manual) Seg Neutrophils # Seg Neutrophils # Man Lymphocytes # (Manual) APTT POC ABG pH ABG pH POC ABG pCO2 POC ABG pO2 ABG pO2 ABG HCO3 ABG Base Excess ABG Hemoglobin VBG pH Oxyhemoglobin Sodium Potassium Chloride Carbon Dioxide BUN Creatinine Glucose POC Glucose 201 H 233 H 269 H Lactic Acid Calcium AST ALT Alkaline Phosphatase CK-MB (CK-2) CK-MB (CK-2) Rel Index Total Protein Albumin TSH Urine WBC (Auto) Salicylates 02/26/17 02/26/17 02/26/17 11:48 13:49 21:26 WBC RBC Hgb Hct MCV MCH RDW Plt Count Lymph % (Auto) [place] % (Auto) Eos % (Auto) [place] # Seg Neutrophils % Seg Neuts % (Manual) Lymphocytes % (Manual) Seg Neutrophils # Seg Neutrophils # Man Lymphocytes # (Manual) APTT POC ABG pH ABG pH POC ABG pCO2 POC ABG pO2 ABG pO2 ABG HCO3 ABG Base Excess ABG Hemoglobin VBG pH Oxyhemoglobin Sodium Potassium Chloride Carbon Dioxide BUN Creatinine Glucose POC Glucose 333 H 322 H 244 H Lactic Acid Calcium AST ALT Alkaline Phosphatase CK-MB (CK-2) CK-MB (CK-2) Rel Index Total Protein Albumin TSH Urine WBC (Auto) Salicylates 02/27/17 02/27/17 02/27/17 05:27 13:51 21:48 WBC RBC Hgb Hct MCV MCH RDW Plt Count Lymph % (Auto) [place] % (Auto) Eos % (Auto) [place] # Seg Neutrophils % Seg Neuts % (Manual) Lymphocytes % (Manual) Seg Neutrophils # Seg Neutrophils # Man Lymphocytes # (Manual) APTT POC ABG pH ABG pH POC ABG pCO2 POC ABG pO2 ABG pO2 ABG HCO3 ABG Base Excess ABG Hemoglobin VBG pH Oxyhemoglobin Sodium Potassium Chloride Carbon Dioxide BUN Creatinine Glucose POC Glucose 217 H 239 H 254 H Lactic Acid Calcium AST ALT Alkaline Phosphatase CK-MB (CK-2) CK-MB (CK-2) Rel Index Total Protein Albumin TSH Urine WBC (Auto) Salicylates 02/28/17 02/28/17 02/28/17 05:38 11:00 19:44 WBC RBC Hgb Hct MCV MCH RDW Plt Count Lymph % (Auto) [place] % (Auto) Eos % (Auto) [place] # Seg Neutrophils % Seg Neuts % (Manual) Lymphocytes % (Manual) Seg Neutrophils # Seg Neutrophils # Man Lymphocytes # (Manual) APTT POC ABG pH ABG pH POC ABG pCO2 POC ABG pO2 ABG pO2 ABG HCO3 ABG Base Excess ABG Hemoglobin VBG pH Oxyhemoglobin Sodium Potassium Chloride Carbon Dioxide BUN Creatinine Glucose POC Glucose 325 H 203 H 116 H Lactic Acid Calcium AST ALT Alkaline Phosphatase CK-MB (CK-2) CK-MB (CK-2) Rel Index Total Protein Albumin TSH Urine WBC (Auto) Salicylates 03/01/17 03/01/17 03/01/17 00:08 05:31 12:17 WBC RBC Hgb Hct MCV MCH RDW Plt Count Lymph % (Auto) [place] % (Auto) Eos % (Auto) [place] # Seg Neutrophils % Seg Neuts % (Manual) Lymphocytes % (Manual) Seg Neutrophils # Seg Neutrophils # Man Lymphocytes # (Manual) APTT POC ABG pH ABG pH POC ABG pCO2 POC ABG pO2 ABG pO2 ABG HCO3 ABG Base Excess ABG Hemoglobin VBG pH Oxyhemoglobin Sodium Potassium Chloride Carbon Dioxide BUN Creatinine Glucose POC Glucose 202 H 183 H 184 H Lactic Acid Calcium AST ALT Alkaline Phosphatase CK-MB (CK-2) CK-MB (CK-2) Rel Index Total Protein Albumin TSH Urine WBC (Auto) Salicylates 03/02/17 03/02/17 03/02/17 00:12 05:58 18:22 WBC RBC Hgb Hct MCV MCH RDW Plt Count Lymph % (Auto) [place] % (Auto) Eos % (Auto) [place] # Seg Neutrophils % Seg Neuts % (Manual) Lymphocytes % (Manual) Seg Neutrophils # Seg Neutrophils # Man Lymphocytes # (Manual) APTT POC ABG pH ABG pH POC ABG pCO2 POC ABG pO2 ABG pO2 ABG HCO3 ABG Base Excess ABG Hemoglobin VBG pH Oxyhemoglobin Sodium Potassium Chloride Carbon Dioxide BUN Creatinine Glucose POC Glucose 117 H 176 H 156 H Lactic Acid Calcium AST ALT Alkaline Phosphatase CK-MB (CK-2) CK-MB (CK-2) Rel Index Total Protein Albumin TSH Urine WBC (Auto) Salicylates 03/02/17 03/03/17 03/03/17 23:51 05:44 11:32 WBC RBC Hgb Hct MCV MCH RDW Plt Count Lymph % (Auto) [place] % (Auto) Eos % (Auto) [place] # Seg Neutrophils % Seg Neuts % (Manual) Lymphocytes % (Manual) Seg Neutrophils # Seg Neutrophils # Man Lymphocytes # (Manual) APTT POC ABG pH ABG pH POC ABG pCO2 POC ABG pO2 ABG pO2 ABG HCO3 ABG Base Excess ABG Hemoglobin VBG pH Oxyhemoglobin Sodium Potassium Chloride Carbon Dioxide BUN Creatinine Glucose POC Glucose 211 H 117 H 133 H Lactic Acid Calcium AST ALT Alkaline Phosphatase CK-MB (CK-2) CK-MB (CK-2) Rel Index Total Protein Albumin TSH Urine WBC (Auto) Salicylates 03/03/17 03/03/17 03/04/17 17:43 23:17 05:30 WBC RBC Hgb Hct MCV MCH RDW Plt Count Lymph % (Auto) [place] % (Auto) Eos % (Auto) [place] # Seg Neutrophils % Seg Neuts % (Manual) Lymphocytes % (Manual) Seg Neutrophils # Seg Neutrophils # Man Lymphocytes # (Manual) APTT POC ABG pH ABG pH POC ABG pCO2 POC ABG pO2 ABG pO2 ABG HCO3 ABG Base Excess ABG Hemoglobin VBG pH Oxyhemoglobin Sodium Potassium Chloride Carbon Dioxide BUN Creatinine Glucose POC Glucose 206 H 170 H 126 H Lactic Acid Calcium AST ALT Alkaline Phosphatase CK-MB (CK-2) CK-MB (CK-2) Rel Index Total Protein Albumin TSH Urine WBC (Auto) Salicylates 03/04/17 03/04/17 03/05/17 12:17 17:27 05:20 WBC RBC Hgb Hct MCV MCH RDW Plt Count Lymph % (Auto) [place] % (Auto) Eos % (Auto) [place] # Seg Neutrophils % Seg Neuts % (Manual) Lymphocytes % (Manual) Seg Neutrophils # Seg Neutrophils # Man Lymphocytes # (Manual) APTT POC ABG pH ABG pH POC ABG pCO2 POC ABG pO2 ABG pO2 ABG HCO3 ABG Base Excess ABG Hemoglobin VBG pH Oxyhemoglobin Sodium Potassium Chloride Carbon Dioxide BUN Creatinine Glucose POC Glucose 135 H 121 H 185 H Lactic Acid Calcium AST ALT Alkaline Phosphatase CK-MB (CK-2) CK-MB (CK-2) Rel Index Total Protein Albumin TSH Urine WBC (Auto) Salicylates 03/05/17 03/06/17 03/06/17 11:50 11:52 17:34 WBC RBC Hgb Hct MCV MCH RDW Plt Count Lymph % (Auto) [place] % (Auto) Eos % (Auto) [place] # Seg Neutrophils % Seg Neuts % (Manual) Lymphocytes % (Manual) Seg Neutrophils # Seg Neutrophils # Man Lymphocytes # (Manual) APTT POC ABG pH ABG pH POC ABG pCO2 POC ABG pO2 ABG pO2 ABG HCO3 ABG Base Excess ABG Hemoglobin VBG pH Oxyhemoglobin Sodium Potassium Chloride Carbon Dioxide BUN Creatinine Glucose POC Glucose 116 H 133 H 181 H Lactic Acid Calcium AST ALT Alkaline Phosphatase CK-MB (CK-2) CK-MB (CK-2) Rel Index Total Protein Albumin TSH Urine WBC (Auto) Salicylates 03/07/17 03/07/17 03/07/17 05:21 11:36 17:49 WBC RBC Hgb Hct MCV MCH RDW Plt Count Lymph % (Auto) [place] % (Auto) Eos % (Auto) [place] # Seg Neutrophils % Seg Neuts % (Manual) Lymphocytes % (Manual) Seg Neutrophils # Seg Neutrophils # Man Lymphocytes # (Manual) APTT POC ABG pH ABG pH POC ABG pCO2 POC ABG pO2 ABG pO2 ABG HCO3 ABG Base Excess ABG Hemoglobin VBG pH Oxyhemoglobin Sodium Potassium Chloride Carbon Dioxide BUN Creatinine Glucose POC Glucose 159 H 137 H 158 H Lactic Acid Calcium AST ALT Alkaline Phosphatase CK-MB (CK-2) CK-MB (CK-2) Rel Index Total Protein Albumin TSH Urine WBC (Auto) Salicylates 03/08/17 03/08/17 03/08/17 05:51 13:58 23:50 WBC RBC Hgb Hct MCV MCH RDW Plt Count Lymph % (Auto) [place] % (Auto) Eos % (Auto) [place] # Seg Neutrophils % Seg Neuts % (Manual) Lymphocytes % (Manual) Seg Neutrophils # Seg Neutrophils # Man Lymphocytes # (Manual) APTT POC ABG pH ABG pH POC ABG pCO2 POC ABG pO2 ABG pO2 ABG HCO3 ABG Base Excess ABG Hemoglobin VBG pH Oxyhemoglobin Sodium Potassium Chloride Carbon Dioxide BUN Creatinine Glucose POC Glucose 122 H 182 H 114 H Lactic Acid Calcium AST ALT Alkaline Phosphatase CK-MB (CK-2) CK-MB (CK-2) Rel Index Total Protein Albumin TSH Urine WBC (Auto) Salicylates 03/09/17 03/09/17 03/09/17 05:21 05:51 05:51 WBC RBC 3.61 L Hgb 9.5 L Hct 28.3 L MCV 79 L MCH 26 L RDW 17.8 H Plt Count Lymph % (Auto) [place] % (Auto) Eos % (Auto) [place] # Seg Neutrophils % Seg Neuts % (Manual) Lymphocytes % (Manual) Seg Neutrophils # Seg Neutrophils # Man Lymphocytes # (Manual) APTT POC ABG pH ABG pH POC ABG pCO2 POC ABG pO2 ABG pO2 ABG HCO3 ABG Base Excess ABG Hemoglobin VBG pH Oxyhemoglobin Sodium 134 L Potassium Chloride 95.5 L Carbon Dioxide BUN 33 H Creatinine 0.5 L Glucose 143 H POC Glucose 153 H Lactic Acid Calcium AST ALT Alkaline Phosphatase CK-MB (CK-2) CK-MB (CK-2) Rel Index Total Protein Albumin TSH Urine WBC (Auto) Salicylates 03/09/17 03/09/17 03/09/17 12:10 18:13 21:00 WBC RBC Hgb Hct MCV MCH RDW Plt Count Lymph % (Auto) [place] % (Auto) Eos % (Auto) [place] # Seg Neutrophils % Seg Neuts % (Manual) Lymphocytes % (Manual) Seg Neutrophils # Seg Neutrophils # Man Lymphocytes # (Manual) APTT POC ABG pH ABG pH POC ABG pCO2 POC ABG pO2 ABG pO2 ABG HCO3 ABG Base Excess ABG Hemoglobin VBG pH Oxyhemoglobin Sodium Potassium Chloride Carbon Dioxide BUN Creatinine Glucose POC Glucose 203 H 221 H 198 H Lactic Acid Calcium AST ALT Alkaline Phosphatase CK-MB (CK-2) CK-MB (CK-2) Rel Index Total Protein Albumin TSH Urine WBC (Auto) Salicylates 03/09/17 03/10/17 03/10/17 23:58 05:09 05:09 WBC RBC Hgb 10.3 L Hct 30.5 L MCV 78 L MCH 26 L RDW 17.9 H Plt Count Lymph % (Auto) [place] % (Auto) 10.0 H Eos % (Auto) 6.0 H [place] # Seg Neutrophils % Seg Neuts % (Manual) Lymphocytes % (Manual) Seg Neutrophils # Seg Neutrophils # Man Lymphocytes # (Manual) APTT POC ABG pH ABG pH POC ABG pCO2 POC ABG pO2 ABG pO2 ABG HCO3 ABG Base Excess ABG Hemoglobin VBG pH Oxyhemoglobin Sodium 132 L Potassium Chloride 92.2 L Carbon Dioxide BUN 33 H Creatinine 0.5 L Glucose 50 L POC Glucose 167 H Lactic Acid Calcium AST ALT Alkaline Phosphatase CK-MB (CK-2) CK-MB (CK-2) Rel Index Total Protein Albumin TSH Urine WBC (Auto) Salicylates 03/10/17 03/10/17 03/10/17 05:33 05:34 11:48 WBC RBC Hgb Hct MCV MCH RDW Plt Count Lymph % (Auto) [place] % (Auto) Eos % (Auto) [place] # Seg Neutrophils % Seg Neuts % (Manual) Lymphocytes % (Manual) Seg Neutrophils # Seg Neutrophils # Man Lymphocytes # (Manual) APTT POC ABG pH ABG pH POC ABG pCO2 POC ABG pO2 ABG pO2 ABG HCO3 ABG Base Excess ABG Hemoglobin VBG pH Oxyhemoglobin Sodium Potassium Chloride Carbon Dioxide BUN Creatinine Glucose POC Glucose 52 L 53 L 148 H Lactic Acid Calcium AST ALT Alkaline Phosphatase CK-MB (CK-2) CK-MB (CK-2) Rel Index Total Protein Albumin TSH Urine WBC (Auto) Salicylates 03/10/17 03/10/17 03/11/17 17:53 23:47 05:18 WBC RBC Hgb Hct MCV MCH RDW Plt Count Lymph % (Auto) [place] % (Auto) Eos % (Auto) [place] # Seg Neutrophils % Seg Neuts % (Manual) Lymphocytes % (Manual) Seg Neutrophils # Seg Neutrophils # Man Lymphocytes # (Manual) APTT POC ABG pH ABG pH POC ABG pCO2 POC ABG pO2 ABG pO2 ABG HCO3 ABG Base Excess ABG Hemoglobin VBG pH Oxyhemoglobin Sodium Potassium Chloride Carbon Dioxide BUN Creatinine Glucose POC Glucose 189 H 398 H 126 H Lactic Acid Calcium AST ALT Alkaline Phosphatase CK-MB (CK-2) CK-MB (CK-2) Rel Index Total Protein Albumin TSH Urine WBC (Auto) Salicylates 03/11/17 03/11/17 03/11/17 11:53 17:30 23:10 WBC RBC Hgb Hct MCV MCH RDW Plt Count Lymph % (Auto) [place] % (Auto) Eos % (Auto) [place] # Seg Neutrophils % Seg Neuts % (Manual) Lymphocytes % (Manual) Seg Neutrophils # Seg Neutrophils # Man Lymphocytes # (Manual) APTT POC ABG pH ABG pH POC ABG pCO2 POC ABG pO2 ABG pO2 ABG HCO3 ABG Base Excess ABG Hemoglobin VBG pH Oxyhemoglobin Sodium Potassium Chloride Carbon Dioxide BUN Creatinine Glucose POC Glucose 198 H 142 H 244 H Lactic Acid Calcium AST ALT Alkaline Phosphatase CK-MB (CK-2) CK-MB (CK-2) Rel Index Total Protein Albumin TSH Urine WBC (Auto) Salicylates 03/12/17 03/12/17 03/12/17 04:36 11:49 17:23 WBC RBC Hgb Hct MCV MCH RDW Plt Count Lymph % (Auto) [place] % (Auto) Eos % (Auto) [place] # Seg Neutrophils % Seg Neuts % (Manual) Lymphocytes % (Manual) Seg Neutrophils # Seg Neutrophils # Man Lymphocytes # (Manual) APTT POC ABG pH ABG pH POC ABG pCO2 POC ABG pO2 ABG pO2 ABG HCO3 ABG Base Excess ABG Hemoglobin VBG pH Oxyhemoglobin Sodium Potassium Chloride Carbon Dioxide BUN Creatinine Glucose POC Glucose 205 H 197 H 209 H Lactic Acid Calcium AST ALT Alkaline Phosphatase CK-MB (CK-2) CK-MB (CK-2) Rel Index Total Protein Albumin TSH Urine WBC (Auto) Salicylates 03/12/17 03/13/17 03/13/17 23:51 05:32 11:43 WBC RBC Hgb Hct MCV MCH RDW Plt Count Lymph % (Auto) [place] % (Auto) Eos % (Auto) [place] # Seg Neutrophils % Seg Neuts % (Manual) Lymphocytes % (Manual) Seg Neutrophils # Seg Neutrophils # Man Lymphocytes # (Manual) APTT POC ABG pH ABG pH POC ABG pCO2 POC ABG pO2 ABG pO2 ABG HCO3 ABG Base Excess ABG Hemoglobin VBG pH Oxyhemoglobin Sodium Potassium Chloride Carbon Dioxide BUN Creatinine Glucose POC Glucose 210 H 154 H 164 H Lactic Acid Calcium AST ALT Alkaline Phosphatase CK-MB (CK-2) CK-MB (CK-2) Rel Index Total Protein Albumin TSH Urine WBC (Auto) Salicylates 03/13/17 03/13/17 03/14/17 17:11 23:26 05:42 WBC RBC Hgb Hct MCV MCH RDW Plt Count Lymph % (Auto) [place] % (Auto) Eos % (Auto) [place] # Seg Neutrophils % Seg Neuts % (Manual) Lymphocytes % (Manual) Seg Neutrophils # Seg Neutrophils # Man Lymphocytes # (Manual) APTT POC ABG pH ABG pH POC ABG pCO2 POC ABG pO2 ABG pO2 ABG HCO3 ABG Base Excess ABG Hemoglobin VBG pH Oxyhemoglobin Sodium Potassium Chloride Carbon Dioxide BUN Creatinine Glucose POC Glucose 195 H 240 H 230 H Lactic Acid Calcium AST ALT Alkaline Phosphatase CK-MB (CK-2) CK-MB (CK-2) Rel Index Total Protein Albumin TSH Urine WBC (Auto) Salicylates 03/14/17 03/14/17 03/14/17 14:04 17:34 23:42 WBC RBC Hgb Hct MCV MCH RDW Plt Count Lymph % (Auto) [place] % (Auto) Eos % (Auto) [place] # Seg Neutrophils % Seg Neuts % (Manual) Lymphocytes % (Manual) Seg Neutrophils # Seg Neutrophils # Man Lymphocytes # (Manual) APTT POC ABG pH ABG pH POC ABG pCO2 POC ABG pO2 ABG pO2 ABG HCO3 ABG Base Excess ABG Hemoglobin VBG pH Oxyhemoglobin Sodium Potassium Chloride Carbon Dioxide BUN Creatinine Glucose POC Glucose 227 H 186 H 225 H Lactic Acid Calcium AST ALT Alkaline Phosphatase CK-MB (CK-2) CK-MB (CK-2) Rel Index Total Protein Albumin TSH Urine WBC (Auto) Salicylates 03/15/17 03/15/17 03/15/17 05:21 17:13 21:37 WBC RBC Hgb Hct MCV MCH RDW Plt Count Lymph % (Auto) [place] % (Auto) Eos % (Auto) [place] # Seg Neutrophils % Seg Neuts % (Manual) Lymphocytes % (Manual) Seg Neutrophils # Seg Neutrophils # Man Lymphocytes # (Manual) APTT POC ABG pH ABG pH POC ABG pCO2 POC ABG pO2 ABG pO2 ABG HCO3 ABG Base Excess ABG Hemoglobin VBG pH Oxyhemoglobin Sodium Potassium Chloride Carbon Dioxide BUN Creatinine Glucose POC Glucose 244 H 203 H 216 H Lactic Acid Calcium AST ALT Alkaline Phosphatase CK-MB (CK-2) CK-MB (CK-2) Rel Index Total Protein Albumin TSH Urine WBC (Auto) Salicylates 03/16/17 03/16/17 03/16/17 05:52 18:07 21:54 WBC RBC Hgb Hct MCV MCH RDW Plt Count Lymph % (Auto) [place] % (Auto) Eos % (Auto) [place] # Seg Neutrophils % Seg Neuts % (Manual) Lymphocytes % (Manual) Seg Neutrophils # Seg Neutrophils # Man Lymphocytes # (Manual) APTT POC ABG pH ABG pH POC ABG pCO2 POC ABG pO2 ABG pO2 ABG HCO3 ABG Base Excess ABG Hemoglobin VBG pH Oxyhemoglobin Sodium Potassium Chloride Carbon Dioxide BUN Creatinine Glucose POC Glucose 248 H 254 H 244 H Lactic Acid Calcium AST ALT Alkaline Phosphatase CK-MB (CK-2) CK-MB (CK-2) Rel Index Total Protein Albumin TSH Urine WBC (Auto) Salicylates 03/17/17 03/17/17 03/17/17 07:07 07:42 07:43 WBC RBC Hgb 9.7 L Hct 29.1 L MCV 78 L MCH 26 L RDW 17.4 H Plt Count Lymph % (Auto) [place] % (Auto) Eos % (Auto) [place] # Seg Neutrophils % Seg Neuts % (Manual) Lymphocytes % (Manual) Seg Neutrophils # Seg Neutrophils # Man Lymphocytes # (Manual) APTT POC ABG pH ABG pH POC ABG pCO2 POC ABG pO2 ABG pO2 ABG HCO3 ABG Base Excess ABG Hemoglobin VBG pH Oxyhemoglobin Sodium Potassium Chloride 96.6 L Carbon Dioxide BUN 30 H Creatinine 0.5 L Glucose 251 H POC Glucose 222 H Lactic Acid Calcium AST ALT Alkaline Phosphatase CK-MB (CK-2) CK-MB (CK-2) Rel Index Total Protein Albumin TSH Urine WBC (Auto) Salicylates 03/17/17 03/17/17 03/18/17 14:08 21:20 14:24 WBC RBC Hgb Hct MCV MCH RDW Plt Count Lymph % (Auto) [place] % (Auto) Eos % (Auto) [place] # Seg Neutrophils % Seg Neuts % (Manual) Lymphocytes % (Manual) Seg Neutrophils # Seg Neutrophils # Man Lymphocytes # (Manual) APTT POC ABG pH ABG pH POC ABG pCO2 POC ABG pO2 ABG pO2 ABG HCO3 ABG Base Excess ABG Hemoglobin VBG pH Oxyhemoglobin Sodium Potassium Chloride Carbon Dioxide BUN Creatinine Glucose POC Glucose 281 H 239 H 195 H Lactic Acid Calcium AST ALT Alkaline Phosphatase CK-MB (CK-2) CK-MB (CK-2) Rel Index Total Protein Albumin TSH Urine WBC (Auto) Salicylates 03/18/17 03/19/17 03/19/17 21:37 04:57 14:23 WBC RBC Hgb Hct MCV MCH RDW Plt Count Lymph % (Auto) [place] % (Auto) Eos % (Auto) [place] # Seg Neutrophils % Seg Neuts % (Manual) Lymphocytes % (Manual) Seg Neutrophils # Seg Neutrophils # Man Lymphocytes # (Manual) APTT POC ABG pH ABG pH POC ABG pCO2 POC ABG pO2 ABG pO2 ABG HCO3 ABG Base Excess ABG Hemoglobin VBG pH Oxyhemoglobin Sodium Potassium Chloride Carbon Dioxide BUN Creatinine Glucose POC Glucose 227 H 205 H 277 H Lactic Acid Calcium AST ALT Alkaline Phosphatase CK-MB (CK-2) CK-MB (CK-2) Rel Index Total Protein Albumin TSH Urine WBC (Auto) Salicylates 03/19/17 03/19/17 03/20/17 20:31 21:47 04:55 WBC RBC Hgb Hct MCV MCH RDW Plt Count Lymph % (Auto) [place] % (Auto) Eos % (Auto) [place] # Seg Neutrophils % Seg Neuts % (Manual) Lymphocytes % (Manual) Seg Neutrophils # Seg Neutrophils # Man Lymphocytes # (Manual) APTT POC ABG pH ABG pH POC ABG pCO2 POC ABG pO2 ABG pO2 ABG HCO3 ABG Base Excess ABG Hemoglobin VBG pH Oxyhemoglobin Sodium Potassium Chloride Carbon Dioxide BUN Creatinine Glucose POC Glucose 256 H 270 H 202 H Lactic Acid Calcium AST ALT Alkaline Phosphatase CK-MB (CK-2) CK-MB (CK-2) Rel Index Total Protein Albumin TSH Urine WBC (Auto) Salicylates 03/20/17 03/20/17 03/21/17 14:09 21:40 05:09 WBC RBC Hgb Hct MCV MCH RDW Plt Count Lymph % (Auto) [place] % (Auto) Eos % (Auto) [place] # Seg Neutrophils % Seg Neuts % (Manual) Lymphocytes % (Manual) Seg Neutrophils # Seg Neutrophils # Man Lymphocytes # (Manual) APTT POC ABG pH ABG pH POC ABG pCO2 POC ABG pO2 ABG pO2 ABG HCO3 ABG Base Excess ABG Hemoglobin VBG pH Oxyhemoglobin Sodium Potassium Chloride Carbon Dioxide BUN Creatinine Glucose POC Glucose 200 H 214 H 233 H Lactic Acid Calcium AST ALT Alkaline Phosphatase CK-MB (CK-2) CK-MB (CK-2) Rel Index Total Protein Albumin TSH Urine WBC (Auto) Salicylates 03/21/17 03/21/17 03/22/17 14:06 21:26 05:43 WBC RBC Hgb Hct MCV MCH RDW Plt Count Lymph % (Auto) [place] % (Auto) Eos % (Auto) [place] # Seg Neutrophils % Seg Neuts % (Manual) Lymphocytes % (Manual) Seg Neutrophils # Seg Neutrophils # Man Lymphocytes # (Manual) APTT POC ABG pH ABG pH POC ABG pCO2 POC ABG pO2 ABG pO2 ABG HCO3 ABG Base Excess ABG Hemoglobin VBG pH Oxyhemoglobin Sodium Potassium Chloride Carbon Dioxide BUN Creatinine Glucose POC Glucose 250 H 155 H 251 H Lactic Acid Calcium AST ALT Alkaline Phosphatase CK-MB (CK-2) CK-MB (CK-2) Rel Index Total Protein Albumin TSH Urine WBC (Auto) Salicylates 03/22/17 03/22/17 03/23/17 13:46 21:16 00:23 WBC RBC Hgb Hct MCV MCH RDW Plt Count Lymph % (Auto) [place] % (Auto) Eos % (Auto) [place] # Seg Neutrophils % Seg Neuts % (Manual) Lymphocytes % (Manual) Seg Neutrophils # Seg Neutrophils # Man Lymphocytes # (Manual) APTT POC ABG pH ABG pH POC ABG pCO2 POC ABG pO2 ABG pO2 ABG HCO3 ABG Base Excess ABG Hemoglobin VBG pH Oxyhemoglobin Sodium Potassium Chloride Carbon Dioxide BUN Creatinine Glucose POC Glucose 269 H 197 H 126 H Lactic Acid Calcium AST ALT Alkaline Phosphatase CK-MB (CK-2) CK-MB (CK-2) Rel Index Total Protein Albumin TSH Urine WBC (Auto) Salicylates 03/23/17 03/23/17 03/23/17 05:39 14:06 21:39 WBC RBC Hgb Hct MCV MCH RDW Plt Count Lymph % (Auto) [place] % (Auto) Eos % (Auto) [place] # Seg Neutrophils % Seg Neuts % (Manual) Lymphocytes % (Manual) Seg Neutrophils # Seg Neutrophils # Man Lymphocytes # (Manual) APTT POC ABG pH ABG pH POC ABG pCO2 POC ABG pO2 ABG pO2 ABG HCO3 ABG Base Excess ABG Hemoglobin VBG pH Oxyhemoglobin Sodium Potassium Chloride Carbon Dioxide BUN Creatinine Glucose POC Glucose 234 H 241 H 248 H Lactic Acid Calcium AST ALT Alkaline Phosphatase CK-MB (CK-2) CK-MB (CK-2) Rel Index Total Protein Albumin TSH Urine WBC (Auto) Salicylates 03/24/17 03/24/17 03/25/17 05:06 21:46 05:38 WBC RBC Hgb Hct MCV MCH RDW Plt Count Lymph % (Auto) [place] % (Auto) Eos % (Auto) [place] # Seg Neutrophils % Seg Neuts % (Manual) Lymphocytes % (Manual) Seg Neutrophils # Seg Neutrophils # Man Lymphocytes # (Manual) APTT POC ABG pH ABG pH POC ABG pCO2 POC ABG pO2 ABG pO2 ABG HCO3 ABG Base Excess ABG Hemoglobin VBG pH Oxyhemoglobin Sodium Potassium Chloride Carbon Dioxide BUN Creatinine Glucose POC Glucose 232 H 276 H 242 H Lactic Acid Calcium AST ALT Alkaline Phosphatase CK-MB (CK-2) CK-MB (CK-2) Rel Index Total Protein Albumin TSH Urine WBC (Auto) Salicylates 03/25/17 03/25/17 03/26/17 14:30 23:14 13:53 WBC RBC Hgb Hct MCV MCH RDW Plt Count Lymph % (Auto) [place] % (Auto) Eos % (Auto) [place] # Seg Neutrophils % Seg Neuts % (Manual) Lymphocytes % (Manual) Seg Neutrophils # Seg Neutrophils # Man Lymphocytes # (Manual) APTT POC ABG pH ABG pH POC ABG pCO2 POC ABG pO2 ABG pO2 ABG HCO3 ABG Base Excess ABG Hemoglobin VBG pH Oxyhemoglobin Sodium Potassium Chloride Carbon Dioxide BUN Creatinine Glucose POC Glucose 246 H 208 H 195 H Lactic Acid Calcium AST ALT Alkaline Phosphatase CK-MB (CK-2) CK-MB (CK-2) Rel Index Total Protein Albumin TSH Urine WBC (Auto) Salicylates 03/26/17 03/27/1717 21:58 05:18 14:57 WBC RBC Hgb Hct MCV MCH RDW Plt Count Lymph % (Auto) [place] % (Auto) Eos % (Auto) [place] # Seg Neutrophils % Seg Neuts % (Manual) Lymphocytes % (Manual) Seg Neutrophils # Seg Neutrophils # Man Lymphocytes # (Manual) APTT POC ABG pH ABG pH POC ABG pCO2 POC ABG pO2 ABG pO2 ABG HCO3 ABG Base Excess ABG Hemoglobin VBG pH Oxyhemoglobin Sodium Potassium Chloride Carbon Dioxide BUN Creatinine Glucose POC Glucose 241 H 199 H 269 H Lactic Acid Calcium AST ALT Alkaline Phosphatase CK-MB (CK-2) CK-MB (CK-2) Rel Index Total Protein Albumin TSH Urine WBC (Auto) Salicylates 03/27/17 03/28/17 03/28/17 21:33 13:52 21:29 WBC RBC Hgb Hct MCV MCH RDW Plt Count Lymph % (Auto) [place] % (Auto) Eos % (Auto) [place] # Seg Neutrophils % Seg Neuts % (Manual) Lymphocytes % (Manual) Seg Neutrophils # Seg Neutrophils # Man Lymphocytes # (Manual) APTT POC ABG pH ABG pH POC ABG pCO2 POC ABG pO2 ABG pO2 ABG HCO3 ABG Base Excess ABG Hemoglobin VBG pH Oxyhemoglobin Sodium Potassium Chloride Carbon Dioxide BUN Creatinine Glucose POC Glucose 214 H 243 H 286 H Lactic Acid Calcium AST ALT Alkaline Phosphatase CK-MB (CK-2) CK-MB (CK-2) Rel Index Total Protein Albumin TSH Urine WBC (Auto) Salicylates 03/29/17 03/29/17 03/29/17 04:32 04:32 13:58 WBC RBC Hgb 10.6 L Hct 32.9 L MCV 78 L MCH 25 L RDW 17.6 H Plt Count Lymph % (Auto) 38.0 H [place] % (Auto) 9.7 H Eos % (Auto) [place] # Seg Neutrophils % Seg Neuts % (Manual) Lymphocytes % (Manual) Seg Neutrophils # Seg Neutrophils # Man Lymphocytes # (Manual) APTT POC ABG pH ABG pH POC ABG pCO2 POC ABG pO2 ABG pO2 ABG HCO3 ABG Base Excess ABG Hemoglobin VBG pH Oxyhemoglobin Sodium 132 L Potassium Chloride 94.0 L Carbon Dioxide BUN 28 H Creatinine 0.5 L Glucose 236 H POC Glucose 171 H Lactic Acid Calcium AST ALT 71 H Alkaline Phosphatase 391 H CK-MB (CK-2) CK-MB (CK-2) Rel Index Total Protein 8.3 H Albumin 2.9 L TSH Urine WBC (Auto) Salicylates 03/29/17 03/30/17 03/30/17 20:59 06:07 11:52 WBC RBC Hgb Hct MCV MCH RDW Plt Count Lymph % (Auto) [place] % (Auto) Eos % (Auto) [place] # Seg Neutrophils % Seg Neuts % (Manual) Lymphocytes % (Manual) Seg Neutrophils # Seg Neutrophils # Man Lymphocytes # (Manual) APTT POC ABG pH ABG pH POC ABG pCO2 POC ABG pO2 ABG pO2 ABG HCO3 ABG Base Excess ABG Hemoglobin VBG pH Oxyhemoglobin Sodium Potassium Chloride Carbon Dioxide BUN Creatinine Glucose POC Glucose 215 H 259 H 197 H Lactic Acid Calcium AST ALT Alkaline Phosphatase CK-MB (CK-2) CK-MB (CK-2) Rel Index Total Protein Albumin TSH Urine WBC (Auto) Salicylates 03/30/17 03/31/17 03/31/17 21:34 05:42 14:34 WBC RBC Hgb Hct MCV MCH RDW Plt Count Lymph % (Auto) [place] % (Auto) Eos % (Auto) [place] # Seg Neutrophils % Seg Neuts % (Manual) Lymphocytes % (Manual) Seg Neutrophils # Seg Neutrophils # Man Lymphocytes # (Manual) APTT POC ABG pH ABG pH POC ABG pCO2 POC ABG pO2 ABG pO2 ABG HCO3 ABG Base Excess ABG Hemoglobin VBG pH Oxyhemoglobin Sodium Potassium Chloride Carbon Dioxide BUN Creatinine Glucose POC Glucose 207 H 184 H 213 H Lactic Acid Calcium AST ALT Alkaline Phosphatase CK-MB (CK-2) CK-MB (CK-2) Rel Index Total Protein Albumin TSH Urine WBC (Auto) Salicylates 03/31/17 04/01/17 04/01/17 21:32 05:53 13:48 WBC RBC Hgb Hct MCV MCH RDW Plt Count Lymph % (Auto) [place] % (Auto) Eos % (Auto) [place] # Seg Neutrophils % Seg Neuts % (Manual) Lymphocytes % (Manual) Seg Neutrophils # Seg Neutrophils # Man Lymphocytes # (Manual) APTT POC ABG pH ABG pH POC ABG pCO2 POC ABG pO2 ABG pO2 ABG HCO3 ABG Base Excess ABG Hemoglobin VBG pH Oxyhemoglobin Sodium Potassium Chloride Carbon Dioxide BUN Creatinine Glucose POC Glucose 249 H 225 H 256 H Lactic Acid Calcium AST ALT Alkaline Phosphatase CK-MB (CK-2) CK-MB (CK-2) Rel Index Total Protein Albumin TSH Urine WBC (Auto) Salicylates 04/01/17 04/02/17 04/02/17 21:34 05:32 14:05 WBC RBC Hgb Hct MCV MCH RDW Plt Count Lymph % (Auto) [place] % (Auto) Eos % (Auto) [place] # Seg Neutrophils % Seg Neuts % (Manual) Lymphocytes % (Manual) Seg Neutrophils # Seg Neutrophils # Man Lymphocytes # (Manual) APTT POC ABG pH ABG pH POC ABG pCO2 POC ABG pO2 ABG pO2 ABG HCO3 ABG Base Excess ABG Hemoglobin VBG pH Oxyhemoglobin Sodium Potassium Chloride Carbon Dioxide BUN Creatinine Glucose POC Glucose 292 H 220 H 187 H Lactic Acid Calcium AST ALT Alkaline Phosphatase CK-MB (CK-2) CK-MB (CK-2) Rel Index Total Protein Albumin TSH Urine WBC (Auto) Salicylates 04/02/17 04/03/17 04/03/17 21:57 04:49 14:12 WBC RBC Hgb Hct MCV MCH RDW Plt Count Lymph % (Auto) [place] % (Auto) Eos % (Auto) [place] # Seg Neutrophils % Seg Neuts % (Manual) Lymphocytes % (Manual) Seg Neutrophils # Seg Neutrophils # Man Lymphocytes # (Manual) APTT POC ABG pH ABG pH POC ABG pCO2 POC ABG pO2 ABG pO2 ABG HCO3 ABG Base Excess ABG Hemoglobin VBG pH Oxyhemoglobin Sodium Potassium Chloride Carbon Dioxide BUN Creatinine Glucose POC Glucose 285 H 256 H 197 H Lactic Acid Calcium AST ALT Alkaline Phosphatase CK-MB (CK-2) CK-MB (CK-2) Rel Index Total Protein Albumin TSH Urine WBC (Auto) Salicylates 04/03/17 04/04/17 04/04/17 21:11 05:20 13:18 WBC RBC Hgb Hct MCV MCH RDW Plt Count Lymph % (Auto) [place] % (Auto) Eos % (Auto) [place] # Seg Neutrophils % Seg Neuts % (Manual) Lymphocytes % (Manual) Seg Neutrophils # Seg Neutrophils # Man Lymphocytes # (Manual) APTT POC ABG pH ABG pH POC ABG pCO2 POC ABG pO2 ABG pO2 ABG HCO3 ABG Base Excess ABG Hemoglobin VBG pH Oxyhemoglobin Sodium Potassium Chloride Carbon Dioxide BUN Creatinine Glucose POC Glucose 166 H 228 H 252 H Lactic Acid Calcium AST ALT Alkaline Phosphatase CK-MB (CK-2) CK-MB (CK-2) Rel Index Total Protein Albumin TSH Urine WBC (Auto) Salicylates 04/04/17 04/05/17 04/05/17 21:51 06:14 09:54 WBC RBC Hgb Hct MCV MCH RDW Plt Count Lymph % (Auto) [place] % (Auto) Eos % (Auto) [place] # Seg Neutrophils % Seg Neuts % (Manual) Lymphocytes % (Manual) Seg Neutrophils # Seg Neutrophils # Man Lymphocytes # (Manual) APTT POC ABG pH ABG pH POC ABG pCO2 POC ABG pO2 ABG pO2 ABG HCO3 ABG Base Excess ABG Hemoglobin VBG pH Oxyhemoglobin Sodium Potassium Chloride Carbon Dioxide BUN Creatinine Glucose POC Glucose 252 H 152 H 181 H Lactic Acid Calcium AST ALT Alkaline Phosphatase CK-MB (CK-2) CK-MB (CK-2) Rel Index Total Protein Albumin TSH Urine WBC (Auto) Salicylates 04/05/17 04/05/17 04/05/17 14:49 17:34 21:38 WBC RBC Hgb Hct MCV MCH RDW Plt Count Lymph % (Auto) [place] % (Auto) Eos % (Auto) [place] # Seg Neutrophils % Seg Neuts % (Manual) Lymphocytes % (Manual) Seg Neutrophils # Seg Neutrophils # Man Lymphocytes # (Manual) APTT POC ABG pH ABG pH POC ABG pCO2 POC ABG pO2 ABG pO2 ABG HCO3 ABG Base Excess ABG Hemoglobin VBG pH Oxyhemoglobin Sodium Potassium Chloride Carbon Dioxide BUN Creatinine Glucose POC Glucose 219 H 268 H 278 H Lactic Acid Calcium AST ALT Alkaline Phosphatase CK-MB (CK-2) CK-MB (CK-2) Rel Index Total Protein Albumin TSH Urine WBC (Auto) Salicylates 04/06/17 04/06/17 04/07/17 15:04 22:14 05:09 WBC RBC Hgb Hct MCV MCH RDW Plt Count Lymph % (Auto) [place] % (Auto) Eos % (Auto) [place] # Seg Neutrophils % Seg Neuts % (Manual) Lymphocytes % (Manual) Seg Neutrophils # Seg Neutrophils # Man Lymphocytes # (Manual) APTT POC ABG pH ABG pH POC ABG pCO2 POC ABG pO2 ABG pO2 ABG HCO3 ABG Base Excess ABG Hemoglobin VBG pH Oxyhemoglobin Sodium Potassium Chloride Carbon Dioxide BUN Creatinine Glucose POC Glucose 285 H 106 H 334 H Lactic Acid Calcium AST ALT Alkaline Phosphatase CK-MB (CK-2) CK-MB (CK-2) Rel Index Total Protein Albumin TSH Urine WBC (Auto) Salicylates 04/07/17 04/07/17 04/08/17 14:45 21:48 05:28 WBC RBC Hgb Hct MCV MCH RDW Plt Count Lymph % (Auto) [place] % (Auto) Eos % (Auto) [place] # Seg Neutrophils % Seg Neuts % (Manual) Lymphocytes % (Manual) Seg Neutrophils # Seg Neutrophils # Man Lymphocytes # (Manual) APTT POC ABG pH ABG pH POC ABG pCO2 POC ABG pO2 ABG pO2 ABG HCO3 ABG Base Excess ABG Hemoglobin VBG pH Oxyhemoglobin Sodium Potassium Chloride Carbon Dioxide BUN Creatinine Glucose POC Glucose 173 H 304 H 314 H Lactic Acid Calcium AST ALT Alkaline Phosphatase CK-MB (CK-2) CK-MB (CK-2) Rel Index Total Protein Albumin TSH Urine WBC (Auto) Salicylates 04/08/17 04/08/17 04/08/17 15:57 16:17 22:21 WBC RBC Hgb Hct MCV MCH RDW Plt Count Lymph % (Auto) [place] % (Auto) Eos % (Auto) [place] # Seg Neutrophils % Seg Neuts % (Manual) Lymphocytes % (Manual) Seg Neutrophils # Seg Neutrophils # Man Lymphocytes # (Manual) APTT POC ABG pH ABG pH POC ABG pCO2 POC ABG pO2 ABG pO2 ABG HCO3 ABG Base Excess ABG Hemoglobin VBG pH Oxyhemoglobin Sodium Potassium Chloride Carbon Dioxide BUN Creatinine Glucose POC Glucose 356 H 337 H 323 H Lactic Acid Calcium AST ALT Alkaline Phosphatase CK-MB (CK-2) CK-MB (CK-2) Rel Index Total Protein Albumin TSH Urine WBC (Auto) Salicylates 04/09/17 04/09/17 04/09/17 06:19 15:30 21:52 WBC RBC Hgb Hct MCV MCH RDW Plt Count Lymph % (Auto) [place] % (Auto) Eos % (Auto) [place] # Seg Neutrophils % Seg Neuts % (Manual) Lymphocytes % (Manual) Seg Neutrophils # Seg Neutrophils # Man Lymphocytes # (Manual) APTT POC ABG pH ABG pH POC ABG pCO2 POC ABG pO2 ABG pO2 ABG HCO3 ABG Base Excess ABG Hemoglobin VBG pH Oxyhemoglobin Sodium Potassium Chloride Carbon Dioxide BUN Creatinine Glucose POC Glucose 340 H 332 H 341 H Lactic Acid Calcium AST ALT Alkaline Phosphatase CK-MB (CK-2) CK-MB (CK-2) Rel Index Total Protein Albumin TSH Urine WBC (Auto) Salicylates 04/10/17 04/10/17 04/10/17 01:53 05:33 17:40 WBC RBC Hgb Hct MCV MCH RDW Plt Count Lymph % (Auto) [place] % (Auto) Eos % (Auto) [place] # Seg Neutrophils % Seg Neuts % (Manual) Lymphocytes % (Manual) Seg Neutrophils # Seg Neutrophils # Man Lymphocytes # (Manual) APTT POC ABG pH ABG pH POC ABG pCO2 POC ABG pO2 ABG pO2 ABG HCO3 ABG Base Excess ABG Hemoglobin VBG pH Oxyhemoglobin Sodium Potassium Chloride Carbon Dioxide BUN Creatinine Glucose POC Glucose 261 H 277 H 304 H Lactic Acid Calcium AST ALT Alkaline Phosphatase CK-MB (CK-2) CK-MB (CK-2) Rel Index Total Protein Albumin TSH Urine WBC (Auto) Salicylates 04/10/17 04/11/17 04/11/17 21:29 05:28 14:02 WBC RBC Hgb Hct MCV MCH RDW Plt Count Lymph % (Auto) [place] % (Auto) Eos % (Auto) [place] # Seg Neutrophils % Seg Neuts % (Manual) Lymphocytes % (Manual) Seg Neutrophils # Seg Neutrophils # Man Lymphocytes # (Manual) APTT POC ABG pH ABG pH POC ABG pCO2 POC ABG pO2 ABG pO2 ABG HCO3 ABG Base Excess ABG Hemoglobin VBG pH Oxyhemoglobin Sodium Potassium Chloride Carbon Dioxide BUN Creatinine Glucose POC Glucose 361 H 204 H 236 H Lactic Acid Calcium AST ALT Alkaline Phosphatase CK-MB (CK-2) CK-MB (CK-2) Rel Index Total Protein Albumin TSH Urine WBC (Auto) Salicylates 04/11/17 04/12/17 04/12/17 21:43 05:00 11:53 WBC RBC Hgb Hct MCV MCH RDW Plt Count Lymph % (Auto) [place] % (Auto) Eos % (Auto) [place] # Seg Neutrophils % Seg Neuts % (Manual) Lymphocytes % (Manual) Seg Neutrophils # Seg Neutrophils # Man Lymphocytes # (Manual) APTT POC ABG pH ABG pH POC ABG pCO2 POC ABG pO2 ABG pO2 ABG HCO3 ABG Base Excess ABG Hemoglobin VBG pH Oxyhemoglobin Sodium Potassium Chloride Carbon Dioxide BUN Creatinine Glucose POC Glucose 287 H 294 H 265 H Lactic Acid Calcium AST ALT Alkaline Phosphatase CK-MB (CK-2) CK-MB (CK-2) Rel Index Total Protein Albumin TSH Urine WBC (Auto) Salicylates 04/12/17 04/12/17 04/13/17 21:21 23:44 06:05 WBC RBC Hgb Hct MCV MCH RDW Plt Count Lymph % (Auto) [place] % (Auto) Eos % (Auto) [place] # Seg Neutrophils % Seg Neuts % (Manual) Lymphocytes % (Manual) Seg Neutrophils # Seg Neutrophils # Man Lymphocytes # (Manual) APTT POC ABG pH ABG pH POC ABG pCO2 POC ABG pO2 ABG pO2 ABG HCO3 ABG Base Excess ABG Hemoglobin VBG pH Oxyhemoglobin Sodium Potassium Chloride Carbon Dioxide BUN Creatinine Glucose POC Glucose 289 H 348 H 326 H Lactic Acid Calcium AST ALT Alkaline Phosphatase CK-MB (CK-2) CK-MB (CK-2) Rel Index Total Protein Albumin TSH Urine WBC (Auto) Salicylates 04/13/17 04/13/17 04/14/17 13:54 21:15 05:49 WBC RBC Hgb Hct MCV MCH RDW Plt Count Lymph % (Auto) [place] % (Auto) Eos % (Auto) [place] # Seg Neutrophils % Seg Neuts % (Manual) Lymphocytes % (Manual) Seg Neutrophils # Seg Neutrophils # Man Lymphocytes # (Manual) APTT POC ABG pH ABG pH POC ABG pCO2 POC ABG pO2 ABG pO2 ABG HCO3 ABG Base Excess ABG Hemoglobin VBG pH Oxyhemoglobin Sodium Potassium Chloride Carbon Dioxide BUN Creatinine Glucose POC Glucose 326 H 263 H 319 H Lactic Acid Calcium AST ALT Alkaline Phosphatase CK-MB (CK-2) CK-MB (CK-2) Rel Index Total Protein Albumin TSH Urine WBC (Auto) Salicylates 04/14/17 04/14/17 04/15/17 13:26 23:13 14:24 WBC RBC Hgb Hct MCV MCH RDW Plt Count Lymph % (Auto) [place] % (Auto) Eos % (Auto) [place] # Seg Neutrophils % Seg Neuts % (Manual) Lymphocytes % (Manual) Seg Neutrophils # Seg Neutrophils # Man Lymphocytes # (Manual) APTT POC ABG pH ABG pH POC ABG pCO2 POC ABG pO2 ABG pO2 ABG HCO3 ABG Base Excess ABG Hemoglobin VBG pH Oxyhemoglobin Sodium Potassium Chloride Carbon Dioxide BUN Creatinine Glucose POC Glucose 207 H 365 H 308 H Lactic Acid Calcium AST ALT Alkaline Phosphatase CK-MB (CK-2) CK-MB (CK-2) Rel Index Total Protein Albumin TSH Urine WBC (Auto) Salicylates 04/15/17 04/15/17 04/15/17 21:00 22:18 23:12 WBC RBC Hgb Hct MCV MCH RDW Plt Count Lymph % (Auto) [place] % (Auto) Eos % (Auto) [place] # Seg Neutrophils % Seg Neuts % (Manual) Lymphocytes % (Manual) Seg Neutrophils # Seg Neutrophils # Man Lymphocytes # (Manual) APTT POC ABG pH ABG pH POC ABG pCO2 POC ABG pO2 ABG pO2 ABG HCO3 ABG Base Excess ABG Hemoglobin VBG pH Oxyhemoglobin Sodium Potassium Chloride Carbon Dioxide BUN Creatinine Glucose POC Glucose 407 H 287 H 325 H Lactic Acid Calcium AST ALT Alkaline Phosphatase CK-MB (CK-2) CK-MB (CK-2) Rel Index Total Protein Albumin TSH Urine WBC (Auto) Salicylates 04/16/17 04/16/17 04/16/17 05:30 10:07 14:26 WBC RBC Hgb Hct MCV MCH RDW Plt Count Lymph % (Auto) [place] % (Auto) Eos % (Auto) [place] # Seg Neutrophils % Seg Neuts % (Manual) Lymphocytes % (Manual) Seg Neutrophils # Seg Neutrophils # Man Lymphocytes # (Manual) APTT POC ABG pH ABG pH POC ABG pCO2 POC ABG pO2 ABG pO2 ABG HCO3 ABG Base Excess ABG Hemoglobin VBG pH Oxyhemoglobin Sodium Potassium Chloride Carbon Dioxide BUN Creatinine Glucose POC Glucose 304 H 217 H 344 H Lactic Acid Calcium AST ALT Alkaline Phosphatase CK-MB (CK-2) CK-MB (CK-2) Rel Index Total Protein Albumin TSH Urine WBC (Auto) Salicylates 04/16/17 04/17/17 04/17/17 21:25 05:12 14:19 WBC RBC Hgb Hct MCV MCH RDW Plt Count Lymph % (Auto) [place] % (Auto) Eos % (Auto) [place] # Seg Neutrophils % Seg Neuts % (Manual) Lymphocytes % (Manual) Seg Neutrophils # Seg Neutrophils # Man Lymphocytes # (Manual) APTT POC ABG pH ABG pH POC ABG pCO2 POC ABG pO2 ABG pO2 ABG HCO3 ABG Base Excess ABG Hemoglobin VBG pH Oxyhemoglobin Sodium Potassium Chloride Carbon Dioxide BUN Creatinine Glucose POC Glucose 305 H 233 H 324 H Lactic Acid Calcium AST ALT Alkaline Phosphatase CK-MB (CK-2) CK-MB (CK-2) Rel Index Total Protein Albumin TSH Urine WBC (Auto) Salicylates 04/17/17 04/18/17 04/18/17 21:42 06:21 14:08 WBC RBC Hgb Hct MCV MCH RDW Plt Count Lymph % (Auto) [place] % (Auto) Eos % (Auto) [place] # Seg Neutrophils % Seg Neuts % (Manual) Lymphocytes % (Manual) Seg Neutrophils # Seg Neutrophils # Man Lymphocytes # (Manual) APTT POC ABG pH ABG pH POC ABG pCO2 POC ABG pO2 ABG pO2 ABG HCO3 ABG Base Excess ABG Hemoglobin VBG pH Oxyhemoglobin Sodium Potassium Chloride Carbon Dioxide BUN Creatinine Glucose POC Glucose 270 H 308 H 290 H Lactic Acid Calcium AST ALT Alkaline Phosphatase CK-MB (CK-2) CK-MB (CK-2) Rel Index Total Protein Albumin TSH Urine WBC (Auto) Salicylates 04/18/17 04/19/17 04/19/17 21:50 05:20 13:59 WBC RBC Hgb Hct MCV MCH RDW Plt Count Lymph % (Auto) [place] % (Auto) Eos % (Auto) [place] # Seg Neutrophils % Seg Neuts % (Manual) Lymphocytes % (Manual) Seg Neutrophils # Seg Neutrophils # Man Lymphocytes # (Manual) APTT POC ABG pH ABG pH POC ABG pCO2 POC ABG pO2 ABG pO2 ABG HCO3 ABG Base Excess ABG Hemoglobin VBG pH Oxyhemoglobin Sodium Potassium Chloride Carbon Dioxide BUN Creatinine Glucose POC Glucose 167 H 372 H 321 H Lactic Acid Calcium AST ALT Alkaline Phosphatase CK-MB (CK-2) CK-MB (CK-2) Rel Index Total Protein Albumin TSH Urine WBC (Auto) Salicylates 04/19/17 04/20/17 04/20/17 21:16 14:18 21:34 WBC RBC Hgb Hct MCV MCH RDW Plt Count Lymph % (Auto) [place] % (Auto) Eos % (Auto) [place] # Seg Neutrophils % Seg Neuts % (Manual) Lymphocytes % (Manual) Seg Neutrophils # Seg Neutrophils # Man Lymphocytes # (Manual) APTT POC ABG pH ABG pH POC ABG pCO2 POC ABG pO2 ABG pO2 ABG HCO3 ABG Base Excess ABG Hemoglobin VBG pH Oxyhemoglobin Sodium Potassium Chloride Carbon Dioxide BUN Creatinine Glucose POC Glucose 182 H 218 H 121 H Lactic Acid Calcium AST ALT Alkaline Phosphatase CK-MB (CK-2) CK-MB (CK-2) Rel Index Total Protein Albumin TSH Urine WBC (Auto) Salicylates 04/21/17 04/21/17 04/21/17 00:08 05:16 12:41 WBC RBC Hgb Hct MCV MCH RDW Plt Count Lymph % (Auto) [place] % (Auto) Eos % (Auto) [place] # Seg Neutrophils % Seg Neuts % (Manual) Lymphocytes % (Manual) Seg Neutrophils # Seg Neutrophils # Man Lymphocytes # (Manual) APTT POC ABG pH ABG pH POC ABG pCO2 POC ABG pO2 ABG pO2 ABG HCO3 ABG Base Excess ABG Hemoglobin VBG pH Oxyhemoglobin Sodium Potassium Chloride Carbon Dioxide BUN Creatinine Glucose POC Glucose 128 H 120 H 216 H Lactic Acid Calcium AST ALT Alkaline Phosphatase CK-MB (CK-2) CK-MB (CK-2) Rel Index Total Protein Albumin TSH Urine WBC (Auto) Salicylates 04/21/17 04/22/17 04/22/17 23:40 14:12 23:38 WBC RBC Hgb Hct MCV MCH RDW Plt Count Lymph % (Auto) [place] % (Auto) Eos % (Auto) [place] # Seg Neutrophils % Seg Neuts % (Manual) Lymphocytes % (Manual) Seg Neutrophils # Seg Neutrophils # Man Lymphocytes # (Manual) APTT POC ABG pH ABG pH POC ABG pCO2 POC ABG pO2 ABG pO2 ABG HCO3 ABG Base Excess ABG Hemoglobin VBG pH Oxyhemoglobin Sodium Potassium Chloride Carbon Dioxide BUN Creatinine Glucose POC Glucose 157 H 242 H 117 H Lactic Acid Calcium AST ALT Alkaline Phosphatase CK-MB (CK-2) CK-MB (CK-2) Rel Index Total Protein Albumin TSH Urine WBC (Auto) Salicylates 04/23/17 04/23/17 04/24/17 05:18 14:01 03:24 WBC RBC Hgb Hct MCV MCH RDW Plt Count Lymph % (Auto) [place] % (Auto) Eos % (Auto) [place] # Seg Neutrophils % Seg Neuts % (Manual) Lymphocytes % (Manual) Seg Neutrophils # Seg Neutrophils # Man Lymphocytes # (Manual) APTT POC ABG pH ABG pH POC ABG pCO2 POC ABG pO2 ABG pO2 ABG HCO3 ABG Base Excess ABG Hemoglobin VBG pH Oxyhemoglobin Sodium Potassium Chloride Carbon Dioxide BUN Creatinine Glucose POC Glucose 163 H 57 L 177 H Lactic Acid Calcium AST ALT Alkaline Phosphatase CK-MB (CK-2) CK-MB (CK-2) Rel Index Total Protein Albumin TSH Urine WBC (Auto) Salicylates 04/24/17 04/24/17 04/24/17 04:00 04:00 06:33 WBC RBC Hgb 9.9 L Hct 30.0 L MCV 79 L MCH 26 L RDW 17.1 H Plt Count 625 H Lymph % (Auto) [place] % (Auto) 8.4 H Eos % (Auto) [place] # Seg Neutrophils % Seg Neuts % (Manual) Lymphocytes % (Manual) Seg Neutrophils # Seg Neutrophils # Man Lymphocytes # (Manual) APTT POC ABG pH ABG pH POC ABG pCO2 POC ABG pO2 ABG pO2 ABG HCO3 ABG Base Excess ABG Hemoglobin VBG pH Oxyhemoglobin Sodium 136 L Potassium Chloride 94.9 L Carbon Dioxide BUN 40 H Creatinine 0.6 L Glucose 176 H POC Glucose 230 H Lactic Acid Calcium AST 67 H ALT Alkaline Phosphatase 294 H CK-MB (CK-2) CK-MB (CK-2) Rel Index Total Protein 9.0 H Albumin 2.5 L TSH Urine WBC (Auto) Salicylates 04/24/17 04/25/17 04/25/17 13:50 00:22 02:55 WBC RBC 3.54 L Hgb 9.0 L Hct 27.9 L MCV 79 L MCH 26 L RDW 17.5 H Plt Count 574 H Lymph % (Auto) [place] % (Auto) 10.4 H Eos % (Auto) [place] # 1.0 H Seg Neutrophils % Seg Neuts % (Manual) Lymphocytes % (Manual) Seg Neutrophils # Seg Neutrophils # Man Lymphocytes # (Manual) APTT POC ABG pH ABG pH POC ABG pCO2 POC ABG pO2 ABG pO2 ABG HCO3 ABG Base Excess ABG Hemoglobin VBG pH Oxyhemoglobin Sodium Potassium Chloride Carbon Dioxide BUN Creatinine Glucose POC Glucose 116 H < 40 L Lactic Acid Calcium AST ALT Alkaline Phosphatase CK-MB (CK-2) CK-MB (CK-2) Rel Index Total Protein Albumin TSH Urine WBC (Auto) Salicylates 04/25/17 04/25/17 04/25/17 02:55 11:15 18:36 WBC RBC Hgb Hct MCV MCH RDW Plt Count Lymph % (Auto) [place] % (Auto) Eos % (Auto) [place] # Seg Neutrophils % Seg Neuts % (Manual) Lymphocytes % (Manual) Seg Neutrophils # Seg Neutrophils # Man Lymphocytes # (Manual) APTT POC ABG pH ABG pH POC ABG pCO2 POC ABG pO2 ABG pO2 ABG HCO3 ABG Base Excess ABG Hemoglobin VBG pH Oxyhemoglobin Sodium Potassium Chloride 96.2 L Carbon Dioxide BUN 39 H Creatinine 0.7 L Glucose 125 H POC Glucose 227 H 280 H Lactic Acid Calcium AST ALT Alkaline Phosphatase 247 H CK-MB (CK-2) CK-MB (CK-2) Rel Index Total Protein Albumin 2.7 L TSH Urine WBC (Auto) Salicylates 04/25/17 04/26/17 04/26/17 21:49 06:53 07:27 WBC RBC 3.61 L Hgb 9.1 L Hct 28.1 L MCV 78 L MCH 25 L RDW 17.4 H Plt Count 594 H Lymph % (Auto) [place] % (Auto) 9.2 H Eos % (Auto) [place] # 1.0 H Seg Neutrophils % 70.6 H Seg Neuts % (Manual) Lymphocytes % (Manual) Seg Neutrophils # Seg Neutrophils # Man Lymphocytes # (Manual) APTT POC ABG pH ABG pH POC ABG pCO2 POC ABG pO2 ABG pO2 ABG HCO3 ABG Base Excess ABG Hemoglobin VBG pH Oxyhemoglobin Sodium Potassium Chloride Carbon Dioxide BUN Creatinine Glucose POC Glucose 192 H 60 L Lactic Acid Calcium AST ALT Alkaline Phosphatase CK-MB (CK-2) CK-MB (CK-2) Rel Index Total Protein Albumin TSH Urine WBC (Auto) Salicylates 04/26/17 04/26/17 04/26/17 07:27 07:28 13:32 WBC RBC Hgb Hct MCV MCH RDW Plt Count Lymph % (Auto) [place] % (Auto) Eos % (Auto) [place] # Seg Neutrophils % Seg Neuts % (Manual) Lymphocytes % (Manual) Seg Neutrophils # Seg Neutrophils # Man Lymphocytes # (Manual) APTT POC ABG pH ABG pH POC ABG pCO2 POC ABG pO2 ABG pO2 ABG HCO3 ABG Base Excess ABG Hemoglobin VBG pH Oxyhemoglobin Sodium Potassium Chloride 95.0 L Carbon Dioxide BUN 42 H Creatinine 0.7 L Glucose 172 H POC Glucose 190 H 168 H Lactic Acid Calcium AST 56 H ALT Alkaline Phosphatase 274 H CK-MB (CK-2) CK-MB (CK-2) Rel Index Total Protein 8.9 H Albumin 2.7 L TSH Urine WBC (Auto) Salicylates 04/26/17 04/27/17 04/27/17 23:36 05:10 05:10 WBC RBC 3.49 L Hgb 8.7 L Hct 27.0 L MCV 77 L MCH 25 L RDW 17.4 H Plt Count 558 H Lymph % (Auto) [place] % (Auto) 9.6 H Eos % (Auto) [place] # Seg Neutrophils % Seg Neuts % (Manual) Lymphocytes % (Manual) Seg Neutrophils # Seg Neutrophils # Man Lymphocytes # (Manual) APTT POC ABG pH ABG pH POC ABG pCO2 POC ABG pO2 ABG pO2 ABG HCO3 ABG Base Excess ABG Hemoglobin VBG pH Oxyhemoglobin Sodium 133 L Potassium Chloride 93.5 L Carbon Dioxide BUN 40 H Creatinine 0.7 L Glucose 179 H POC Glucose 204 H Lactic Acid Calcium AST 73 H ALT 58 H Alkaline Phosphatase 294 H CK-MB (CK-2) CK-MB (CK-2) Rel Index Total Protein 8.7 H Albumin 2.4 L TSH Urine WBC (Auto) Salicylates 04/27/17 04/27/17 04/27/17 05:45 14:08 23:46 WBC RBC Hgb Hct MCV MCH RDW Plt Count Lymph % (Auto) [place] % (Auto) Eos % (Auto) [place] # Seg Neutrophils % Seg Neuts % (Manual) Lymphocytes % (Manual) Seg Neutrophils # Seg Neutrophils # Man Lymphocytes # (Manual) APTT POC ABG pH ABG pH POC ABG pCO2 POC ABG pO2 ABG pO2 ABG HCO3 ABG Base Excess ABG Hemoglobin VBG pH Oxyhemoglobin Sodium Potassium Chloride Carbon Dioxide BUN Creatinine Glucose POC Glucose 200 H 206 H 207 H Lactic Acid Calcium AST ALT Alkaline Phosphatase CK-MB (CK-2) CK-MB (CK-2) Rel Index Total Protein Albumin TSH Urine WBC (Auto) Salicylates 04/28/17 04/28/17 04/28/17 04:48 04:53 05:10 WBC RBC 3.48 L Hgb 8.8 L Hct 26.7 L MCV 77 L MCH 25 L RDW 17.0 H Plt Count 515 H Lymph % (Auto) [place] % (Auto) 8.4 H Eos % (Auto) [place] # Seg Neutrophils % 70.6 H Seg Neuts % (Manual) Lymphocytes % (Manual) Seg Neutrophils # Seg Neutrophils # Man Lymphocytes # (Manual) APTT POC ABG pH ABG pH POC ABG pCO2 POC ABG pO2 ABG pO2 ABG HCO3 ABG Base Excess ABG Hemoglobin VBG pH Oxyhemoglobin Sodium Potassium Chloride Carbon Dioxide BUN Creatinine Glucose POC Glucose 43 L 41 L Lactic Acid Calcium AST ALT Alkaline Phosphatase CK-MB (CK-2) CK-MB (CK-2) Rel Index Total Protein Albumin TSH Urine WBC (Auto) Salicylates 04/28/17 04/28/17 04/28/17 05:10 14:06 22:07 WBC RBC Hgb Hct MCV MCH RDW Plt Count Lymph % (Auto) [place] % (Auto) Eos % (Auto) [place] # Seg Neutrophils % Seg Neuts % (Manual) Lymphocytes % (Manual) Seg Neutrophils # Seg Neutrophils # Man Lymphocytes # (Manual) APTT POC ABG pH ABG pH POC ABG pCO2 POC ABG pO2 ABG pO2 ABG HCO3 ABG Base Excess ABG Hemoglobin VBG pH Oxyhemoglobin Sodium 136 L Potassium Chloride 95.2 L Carbon Dioxide BUN 42 H Creatinine Glucose 63 L POC Glucose 303 H 227 H Lactic Acid Calcium AST 45 H ALT Alkaline Phosphatase 271 H CK-MB (CK-2) CK-MB (CK-2) Rel Index Total Protein 8.9 H Albumin 2.5 L TSH Urine WBC (Auto) Salicylates 04/29/17 04/29/17 04/29/17 06:40 14:11 21:35 WBC RBC Hgb Hct MCV MCH RDW Plt Count Lymph % (Auto) [place] % (Auto) Eos % (Auto) [place] # Seg Neutrophils % Seg Neuts % (Manual) Lymphocytes % (Manual) Seg Neutrophils # Seg Neutrophils # Man Lymphocytes # (Manual) APTT POC ABG pH ABG pH POC ABG pCO2 POC ABG pO2 ABG pO2 ABG HCO3 ABG Base Excess ABG Hemoglobin VBG pH Oxyhemoglobin Sodium Potassium Chloride Carbon Dioxide BUN Creatinine Glucose POC Glucose 254 H 244 H 184 H Lactic Acid Calcium AST ALT Alkaline Phosphatase CK-MB (CK-2) CK-MB (CK-2) Rel Index Total Protein Albumin TSH Urine WBC (Auto) Salicylates 04/30/17 04/30/17 04/30/17 05:17 14:03 22:08 WBC RBC Hgb Hct MCV MCH RDW Plt Count Lymph % (Auto) [place] % (Auto) Eos % (Auto) [place] # Seg Neutrophils % Seg Neuts % (Manual) Lymphocytes % (Manual) Seg Neutrophils # Seg Neutrophils # Man Lymphocytes # (Manual) APTT POC ABG pH ABG pH POC ABG pCO2 POC ABG pO2 ABG pO2 ABG HCO3 ABG Base Excess ABG Hemoglobin VBG pH Oxyhemoglobin Sodium Potassium Chloride Carbon Dioxide BUN Creatinine Glucose POC Glucose 173 H 182 H 247 H Lactic Acid Calcium AST ALT Alkaline Phosphatase CK-MB (CK-2) CK-MB (CK-2) Rel Index Total Protein Albumin TSH Urine WBC (Auto) Salicylates 05/01/17 05/01/17 05/01/17 05:04 15:37 18:50 WBC RBC Hgb Hct MCV MCH RDW Plt Count Lymph % (Auto) [place] % (Auto) Eos % (Auto) [place] # Seg Neutrophils % Seg Neuts % (Manual) Lymphocytes % (Manual) Seg Neutrophils # Seg Neutrophils # Man Lymphocytes # (Manual) APTT POC ABG pH ABG pH POC ABG pCO2 POC ABG pO2 ABG pO2 ABG HCO3 ABG Base Excess ABG Hemoglobin VBG pH Oxyhemoglobin Sodium Potassium Chloride Carbon Dioxide BUN Creatinine Glucose POC Glucose 335 H 68 L 144 H Lactic Acid Calcium AST ALT Alkaline Phosphatase CK-MB (CK-2) CK-MB (CK-2) Rel Index Total Protein Albumin TSH Urine WBC (Auto) Salicylates 05/01/17 05/02/17 05/02/17 22:13 04:59 14:06 WBC RBC Hgb Hct MCV MCH RDW Plt Count Lymph % (Auto) [place] % (Auto) Eos % (Auto) [place] # Seg Neutrophils % Seg Neuts % (Manual) Lymphocytes % (Manual) Seg Neutrophils # Seg Neutrophils # Man Lymphocytes # (Manual) APTT POC ABG pH ABG pH POC ABG pCO2 POC ABG pO2 ABG pO2 ABG HCO3 ABG Base Excess ABG Hemoglobin VBG pH Oxyhemoglobin Sodium Potassium Chloride Carbon Dioxide BUN Creatinine Glucose POC Glucose 192 H 225 H 165 H Lactic Acid Calcium AST ALT Alkaline Phosphatase CK-MB (CK-2) CK-MB (CK-2) Rel Index Total Protein Albumin TSH Urine WBC (Auto) Salicylates 05/02/17 21:20 WBC RBC Hgb Hct MCV MCH RDW Plt Count Lymph % (Auto) [place] % (Auto) Eos % (Auto) [place] # Seg Neutrophils % Seg Neuts % (Manual) Lymphocytes % (Manual) Seg Neutrophils # Seg Neutrophils # Man Lymphocytes # (Manual) APTT POC ABG pH ABG pH POC ABG pCO2 POC ABG pO2 ABG pO2 ABG HCO3 ABG Base Excess ABG Hemoglobin VBG pH Oxyhemoglobin Sodium Potassium Chloride Carbon Dioxide BUN Creatinine Glucose POC Glucose 181 H Lactic Acid Calcium AST ALT Alkaline Phosphatase CK-MB (CK-2) CK-MB (CK-2) Rel Index Total Protein Albumin TSH Urine WBC (Auto) Salicylates
[2017-05-04] MEDS: HumuLIN R SUB-Q SCH ×3 (05:17→21:40)
[2017-05-04] MEDS: SYNTHROID PO SCH (05:17)
[2017-05-04] MEDS: PEPCID PO SCH ×2 (11:00→21:40)
[2017-05-04] MEDS: HEPARIN SUB-Q SCH ×2 (11:52→21:40)
[2017-05-04] MEDS: LEVEMIR (NF) SUB-Q SCH (11:52)
--- NOTE | 2017-05-04 14:23 | Progress Note ---
Assessment and Plan Hypoglycemic brain injury Persistent vegetative state Metabolic encephalopathy Hypoglycemia/hypothermia, resolved Acute respiratory failure on mechanical ventilator dependent UTI with klebsiella, treated ( Cx + on 01/28), then with ESBL likely colonization hyponatremia, stable Hypothyroidism IDDM Hypertension low grade Fever, - Cont supportive care and current medication. Monitor vitals, repeat cx on - no growth - increased dose of long acting insulin to 15 unit - Patient is DNR- needs guardianship from the state to give consent for further management, as has no family to give consent. Brief History: 51 YO Male with CKD,HTN, DM presents to ED after found down and unresponsive by his neighbor, who subsequently called EMS. Upon arrival, patient found unresponsive on the floor with a serum glucose of 21, patient has a known history of alcohol abuse and delirium tremens. The patient was administered D5 approximate 500 mls during transport without change in mental status/level of consciousness. Pt seen and evaluated in ED was was found to be unable to protect his airway. Pt intubated and placed on vent support. Pt found to have evidence of hypothyroidism. He was started on Synthroid. He has since been in the ICU. services executive try to locate family, even spoke to the family who he lives with. They themselves were unaware of any family members. After ethics committee meeting on the patient. The decision was made to make him DO NOT RESUSCITATE and to transfer him to hospice. Given his very poor prognosis and poor likelihood of recovery. It was decided that was not his best interest to get trach and PEG. Therefore he'll be transferred to the hospice intubated. Now Awaiting on court ordered /state guardianship. Hospitalist Physical - Physical exam Narrative exam: General: comatose HEENT: Moist mucous membranes, , no lymphadenopathy Neck: supple Cardiac: S1-S2 heard Lungs: mechnical ventilated breath sounds Abdomen: soft , nontender, nondistended, bowel sounds positive Extremities: no edema clubbing or cyanosis Skin: no rash or lesions Neurologic: opens eyes, withdraws from painful stimuli, does not follow commend Subjective Date of service: 05/04/17 Principal diagnosis: Acute respiratory failure,encephalopathy Interval history: patient remains comatose, no movement of extremities no clinical change spiking low grade fever Objective - Constitutional Vitals: Vital Signs - 12hr 05/04/17 05/04/17 05/04/17 03:23 04:00 04:01 Temperature 100.2 F H Pulse Rate 81 77 Respiratory 17 Rate Blood Pressure 105/63 103/61 O2 Sat by Pulse 100 100 Oximetry 05/04/17 05/04/17 05/04/17 06:01 07:34 08:00 Temperature 97 F L Pulse Rate 74 77 77 Respiratory 18 17 Rate Blood Pressure 103/61 103/61 106/64 O2 Sat by Pulse 100 100 100 Oximetry 05/04/17 05/04/17 05/04/17 09:32 10:01 11:47 Temperature Pulse Rate 76 79 78 Respiratory 21 Rate Blood Pressure 106/64 106/64 106/64 O2 Sat by Pulse 100 100 100 Oximetry - Labs CBC & Chem 7: 04/28/17 05:10 04/28/17 05:10 Labs: Abnormal lab results 05/03/17 05/03/17 05/03/17 Range/Units 05:16 16:56 21:46 POC Glucose 323 H 125 H 210 H (70-105) 05/04/17 Range/Units 05:01 POC Glucose 360 H (70-105)
[2017-05-05] MEDS: HumuLIN R SUB-Q SCH ×3 (06:12→21:25)
[2017-05-05] MEDS: SYNTHROID PO SCH (06:12)
[2017-05-05] MEDS: HEPARIN SUB-Q SCH ×2 (09:48→21:23)
[2017-05-05] MEDS: LEVEMIR (NF) SUB-Q SCH (09:48)
[2017-05-05] MEDS: PEPCID PO SCH ×2 (09:49→21:23)
--- NOTE | 2017-05-05 11:07 | Progress Note ---
Assessment and Plan Hypoglycemic brain injury Persistent vegetative state Metabolic encephalopathy Hypoglycemia/hypothermia, resolved Acute respiratory failure on mechanical ventilator dependent UTI with klebsiella, treated ( Cx + on 01/28), then with ESBL likely colonization hyponatremia, stable Hypothyroidism IDDM Hypertension low grade Fever, - Cont supportive care and current medication. Monitor vitals, repeat cx on - no growth - increased dose of long acting insulin to 15 unit - Patient is DNR- needs guardianship from the state to give consent for further management, as has no family to give consent. Brief History: 51 YO Male with CKD,HTN, DM presents to ED after found down and unresponsive by his neighbor, who subsequently called EMS. Upon arrival, patient found unresponsive on the floor with a serum glucose of 21, patient has a known history of alcohol abuse and delirium tremens. The patient was administered D5 approximate 500 mls during transport without change in mental status/level of consciousness. Pt seen and evaluated in ED was was found to be unable to protect his airway. Pt intubated and placed on vent support. Pt found to have evidence of hypothyroidism. He was started on Synthroid. He has since been in the ICU. director volunteer services try to locate family, even spoke to the family who he lives with. They themselves were unaware of any family members. After ethics committee meeting on the patient. The decision was made to make him DO NOT RESUSCITATE and to transfer him to hospice. Given his very poor prognosis and poor likelihood of recovery. It was decided that was not his best interest to get trach and PEG. Therefore he'll be transferred to the hospice intubated. Now Awaiting on court ordered /state guardianship. Hospitalist Physical - Physical exam Narrative exam: General: comatose HEENT: Moist mucous membranes, , no lymphadenopathy Neck: supple Cardiac: S1-S2 heard Lungs: mechnical ventilated breath sounds Abdomen: soft , nontender, nondistended, bowel sounds positive Extremities: no edema clubbing or cyanosis Skin: no rash or lesions Neurologic: opens eyes, withdraws from painful stimuli, does not follow commend Subjective Date of service: 05/05/17 Principal diagnosis: Acute respiratory failure,encephalopathy Interval history: patient remains comatose, no movement of extremities no clinical change spiking low grade fever Objective - Constitutional Vitals: Vital Signs - 12hr 05/04/17 05/04/17 05/05/17 23:29 23:51 00:00 Temperature 99.5 F Pulse Rate 78 77 Pulse Rate [ From Monitor] Respiratory 14 Rate Respiratory Rate [ Generalized] Blood Pressure 114/75 110/71 O2 Sat by Pulse 98 98 Oximetry 05/05/17 05/05/17 05/05/17 02:01 03:10 03:35 Temperature 99.3 F Pulse Rate 75 74 Pulse Rate [ From Monitor] Respiratory 15 Rate Respiratory Rate [ Generalized] Blood Pressure 114/75 110/71 O2 Sat by Pulse 99 100 Oximetry 05/05/17 05/05/17 05/05/17 04:00 06:01 07:35 Temperature Pulse Rate 76 75 73 Pulse Rate [ From Monitor] Respiratory 17 13 Rate Respiratory Rate [ Generalized] Blood Pressure 111/68 110/71 111/67 O2 Sat by Pulse 98 99 98 Oximetry 05/05/17 05/05/17 05/05/17 08:23 10:00 10:34 Temperature Pulse Rate 82 80 Pulse Rate [ 80 From Monitor] Respiratory 14 Rate Respiratory 0 L Rate [ Generalized] Blood Pressure 119/71 O2 Sat by Pulse 99 99 Oximetry - Labs CBC & Chem 7: 04/28/17 05:10 04/28/17 05:10 Labs: Abnormal lab results 05/04/17 05/04/17 05/05/17 Range/Units 14:24 21:39 01:58 POC Glucose 219 H 126 H 175 H (70-105) 05/05/17 Range/Units 05:13 POC Glucose 267 H (70-105)
--- NOTE | 2017-05-05 13:56 | Progress Note ---
Assessment and Plan Imp: 1. Hypoglycemia/hypothermia -> suspect due to too much insulin 2. Hypothyroidism; doubt myxedema coma with normal free T4 3. Acute respiratory failure, hypoxia 4. UTI/SIRS 5. Metabolic encephalopathy Rec: 1. GI/DVT PPx/TFs 2. Reviewed chart; ethics note 01/18/17 recommended AND and "hospice"; trying to get guardianship to sign necessary orders for this (however, I was told they are not willing to sign for withdrawal of ventilator); further care felt to be futile and would only prolong potential suffering without affecting ultimate outcome 3. Comfort care, no escalation of care; would not check any further labs, CXRs, or cultures; would not work him up for infections in setting of fever, only treat w/ Tylenol for palliative purposes 4. Poor prognosis Unable to locate family. Subjective Date of service: 05/05/17 Principal diagnosis: Acute respiratory failure,encephalopathy Interval history: No events. On vent. Unresponsive. + Fevers. On PSV. Active Medications Lipase/Protease/Amylase (Chano Morales 10,500 Unit) 1 each FEEDTUBE PRN PRN PRN Reason: For Clogged Feeding Tube Famotidine (Pepcid) 20 mg PO BID [facility] Last Admin: 05/05/17 09:49 Dose: 20 mg Heparin Sodium (Porcine) (Heparin) 5,000 unit SUB-Q Q12HR [facility] Last Admin: 05/05/17 09:48 Dose: 5,000 unit Hydrophilic Ointment (Vaseline Lip Therapy) 1 applic TP Q2HR PRN PRN Reason: Dry Lips Last Admin: 04/29/17 05:40 Dose: 1 applic Insulin Detemir (Levemir) 9 units SUB-Q DAILY [facility] Last Admin: 05/05/17 09:48 Dose: 9 units Insulin Human Regular (Novolin R) 0 units SUB-Q Q8HR [facility] PRN Reason: Protocol Last Admin: 05/05/17 06:12 Dose: 6 units Levothyroxine Sodium (Synthroid) 100 mcg PO DAILY@0600 [facility] Last Admin: 05/05/17 06:12 Dose: 100 mcg Loperamide HCl (Imodium A-D) 2 mg PO Q2H PRN PRN Reason: Diarrhea Last Admin: 04/29/17 00:57 Dose: 2 mg Multi-Ingred Cream/Lotion/Oil/Oint (Artificial Tears Ophth Oint) 1 applic OU Q4HR PRN PRN Reason: Dry Eye(s) Simple Syrup (Simple Syrup) 15 ml FEEDTUBE PRN PRN PRN Reason: Hypoglycemia Simple Syrup (Simple Syrup) 30 ml FEEDTUBE PRN PRN PRN Reason: Hypoglycemia Last Admin: 04/28/17 04:57 Dose: 30 ml Sodium Bicarbonate (Sodium Bicarbonate) 325 mg FEEDTUBE PRN PRN PRN Reason: For Clogged Feeding Tube Objective Vital Signs - 12hr 05/05/17 05/05/17 05/05/17 02:01 03:10 03:35 Temperature 99.3 F Pulse Rate 75 74 Pulse Rate [ From Monitor] Respiratory 15 Rate Respiratory Rate [ Generalized] Blood Pressure 114/75 110/71 O2 Sat by Pulse 99 100 Oximetry 05/05/17 05/05/17 05/05/17 04:00 06:01 07:35 Temperature Pulse Rate 76 75 73 Pulse Rate [ From Monitor] Respiratory 17 13 Rate Respiratory Rate [ Generalized] Blood Pressure 111/68 110/71 111/67 O2 Sat by Pulse 98 99 98 Oximetry 05/05/17 05/05/17 05/05/17 08:23 10:00 10:34 Temperature Pulse Rate 82 80 Pulse Rate [ 80 From Monitor] Respiratory 14 Rate Respiratory 0 L Rate [ Generalized] Blood Pressure 119/71 O2 Sat by Pulse 99 99 Oximetry 05/05/17 12:00 Temperature 98.3 F Pulse Rate Pulse Rate [ From Monitor] Respiratory Rate Respiratory Rate [ Generalized] Blood Pressure O2 Sat by Pulse Oximetry Constitutional: no acute distress, alert Eyes: non-icteric ENT: oropharynx moist, other (ETT in position) Neck: supple Effort: normal Ascultation: Bilateral: clear, diminished breath sounds Cardiovascular: regular rate and rhythm (no mrg) Gastrointestinal: normoactive bowel sounds, soft, non-tender, non-distended Integumentary: normal Extremities: no cyanosis, no edema, pink and warm Neurologic: pupils equal and round, other (not following commands,mild response to pain) Psychiatric: other (unable to obtain) CBC and BMP: 04/28/17 05:10 04/28/17 05:10 ABG, PT/INR, D-dimer: ABG POC ABG pH 7.442 (7.35-7.45) 01/31/17 18:55 ABG pH 7.420 pH Units (7.350-7.450) 01/17/17 04:35 POC ABG pCO2 32.8 (35-45) L 01/31/17 18:55 ABG pCO2 34.5 mm Hg 01/17/17 04:35 POC ABG pO2 82 (80-105) 01/31/17 18:55 ABG pO2 160.3 mm Hg (80.0-90.0) H 01/17/17 04:35 POC ABG HCO3 22.4 01/31/17 18:55 POC ABG Total CO2 23 01/31/17 18:55 POC ABG O2 Sat 97 01/31/17 18:55 ABG O2 Saturation 99.0 % (95.0-99.0) 01/17/17 04:35 PT/INR, D-dimer PT 14.1 Sec. (12.2-14.9) 01/17/17 04:10 INR 1.04 (0.87-1.13) 01/17/17 04:10 Abnormal lab findings: Abnormal Labs 01/09/17 01/09/17 01/09/17 10:16 10:16 10:16 WBC RBC Hgb 9.7 L Hct 28.4 L MCV 76 L MCH 26 L RDW 17.2 H Plt Count 448 H Lymph % (Auto) [place] % (Auto) Eos % (Auto) [place] # Seg Neutrophils % 79.5 H Seg Neuts % (Manual) Lymphocytes % (Manual) Seg Neutrophils # Seg Neutrophils # Man Lymphocytes # (Manual) APTT 39.6 H POC ABG pH ABG pH POC ABG pCO2 POC ABG pO2 ABG pO2 ABG HCO3 ABG Base Excess ABG Hemoglobin VBG pH Oxyhemoglobin Sodium 132 L Potassium Chloride 96.7 L Carbon Dioxide 21 L BUN 34 H Creatinine Glucose POC Glucose Lactic Acid Calcium 8.3 L AST ALT Alkaline Phosphatase 151 H CK-MB (CK-2) 7.1 H CK-MB (CK-2) Rel Index 5.2 H Total Protein Albumin 3.3 L TSH Urine WBC (Auto) Salicylates 01/09/17 01/09/17 01/09/17 10:16 10:16 10:16 WBC RBC Hgb Hct MCV MCH RDW Plt Count Lymph % (Auto) [place] % (Auto) Eos % (Auto) [place] # Seg Neutrophils % Seg Neuts % (Manual) Lymphocytes % (Manual) Seg Neutrophils # Seg Neutrophils # Man Lymphocytes # (Manual) APTT POC ABG pH ABG pH POC ABG pCO2 POC ABG pO2 ABG pO2 ABG HCO3 ABG Base Excess ABG Hemoglobin VBG pH 7.284 L Oxyhemoglobin Sodium Potassium Chloride Carbon Dioxide BUN Creatinine Glucose POC Glucose Lactic Acid Calcium AST ALT Alkaline Phosphatase CK-MB (CK-2) CK-MB (CK-2) Rel Index Total Protein Albumin TSH 52.800 H Urine WBC (Auto) Salicylates < 0.3 L 01/09/17 01/09/17 01/09/17 10:23 11:14 12:49 WBC RBC Hgb Hct MCV MCH RDW Plt Count Lymph % (Auto) [place] % (Auto) Eos % (Auto) [place] # Seg Neutrophils % Seg Neuts % (Manual) Lymphocytes % (Manual) Seg Neutrophils # Seg Neutrophils # Man Lymphocytes # (Manual) APTT POC ABG pH ABG pH POC ABG pCO2 POC ABG pO2 643 H ABG pO2 ABG HCO3 ABG Base Excess ABG Hemoglobin VBG pH Oxyhemoglobin Sodium Potassium Chloride Carbon Dioxide BUN Creatinine Glucose POC Glucose < 40 L Lactic Acid Calcium AST ALT Alkaline Phosphatase CK-MB (CK-2) CK-MB (CK-2) Rel Index Total Protein Albumin TSH Urine WBC (Auto) 61.0 H Salicylates 01/09/17 01/09/17 01/09/17 13:13 14:21 15:09 WBC RBC Hgb Hct MCV MCH RDW Plt Count Lymph % (Auto) [place] % (Auto) Eos % (Auto) [place] # Seg Neutrophils % Seg Neuts % (Manual) Lymphocytes % (Manual) Seg Neutrophils # Seg Neutrophils # Man Lymphocytes # (Manual) APTT POC ABG pH ABG pH POC ABG pCO2 POC ABG pO2 ABG pO2 ABG HCO3 ABG Base Excess ABG Hemoglobin VBG pH Oxyhemoglobin Sodium Potassium Chloride Carbon Dioxide BUN Creatinine Glucose POC Glucose 128 H 65 L 120 H Lactic Acid Calcium AST ALT Alkaline Phosphatase CK-MB (CK-2) CK-MB (CK-2) Rel Index Total Protein Albumin TSH Urine WBC (Auto) Salicylates 01/09/17 01/09/17 01/10/17 16:28 17:14 04:30 WBC 24.1 H RBC 3.38 L Hgb 8.5 L Hct 26.0 L MCV 77 L MCH 25 L RDW 17.9 H Plt Count 474 H Lymph % (Auto) [place] % (Auto) Eos % (Auto) [place] # Seg Neutrophils % Seg Neuts % (Manual) 88.0 H Lymphocytes % (Manual) 4.0 L Seg Neutrophils # Seg Neutrophils # Man 21.2 H Lymphocytes # (Manual) 1.0 L APTT POC ABG pH ABG pH POC ABG pCO2 POC ABG pO2 ABG pO2 ABG HCO3 ABG Base Excess ABG Hemoglobin VBG pH Oxyhemoglobin Sodium Potassium Chloride Carbon Dioxide BUN Creatinine Glucose POC Glucose 44 L 112 H Lactic Acid Calcium AST ALT Alkaline Phosphatase CK-MB (CK-2) CK-MB (CK-2) Rel Index Total Protein Albumin TSH Urine WBC (Auto) Salicylates 01/10/17 01/10/17 01/10/17 04:30 05:41 05:45 WBC RBC Hgb Hct MCV MCH RDW Plt Count Lymph % (Auto) [place] % (Auto) Eos % (Auto) [place] # Seg Neutrophils % Seg Neuts % (Manual) Lymphocytes % (Manual) Seg Neutrophils # Seg Neutrophils # Man Lymphocytes # (Manual) APTT POC ABG pH ABG pH POC ABG pCO2 26.6 L POC ABG pO2 207 H ABG pO2 ABG HCO3 ABG Base Excess ABG Hemoglobin VBG pH Oxyhemoglobin Sodium Potassium Chloride Carbon Dioxide 17 L BUN 27 H Creatinine Glucose POC Glucose 68 L Lactic Acid Calcium 7.5 L AST ALT Alkaline Phosphatase CK-MB (CK-2) CK-MB (CK-2) Rel Index Total Protein Albumin TSH Urine WBC (Auto) Salicylates 01/10/17 01/10/17 01/10/17 07:47 10:50 13:41 WBC RBC Hgb Hct MCV MCH RDW Plt Count Lymph % (Auto) [place] % (Auto) Eos % (Auto) [place] # Seg Neutrophils % Seg Neuts % (Manual) Lymphocytes % (Manual) Seg Neutrophils # Seg Neutrophils # Man Lymphocytes # (Manual) APTT POC ABG pH ABG pH POC ABG pCO2 POC ABG pO2 ABG pO2 ABG HCO3 ABG Base Excess ABG Hemoglobin VBG pH Oxyhemoglobin Sodium Potassium Chloride Carbon Dioxide BUN Creatinine Glucose POC Glucose 148 H 165 H 114 H Lactic Acid Calcium AST ALT Alkaline Phosphatase CK-MB (CK-2) CK-MB (CK-2) Rel Index Total Protein Albumin TSH Urine WBC (Auto) Salicylates 01/10/17 01/10/17 01/10/17 20:20 21:39 23:24 WBC RBC Hgb Hct MCV MCH RDW Plt Count Lymph % (Auto) [place] % (Auto) Eos % (Auto) [place] # Seg Neutrophils % Seg Neuts % (Manual) Lymphocytes % (Manual) Seg Neutrophils # Seg Neutrophils # Man Lymphocytes # (Manual) APTT POC ABG pH ABG pH POC ABG pCO2 POC ABG pO2 ABG pO2 ABG HCO3 ABG Base Excess ABG Hemoglobin VBG pH Oxyhemoglobin Sodium Potassium Chloride Carbon Dioxide BUN Creatinine Glucose POC Glucose 150 H 175 H 155 H Lactic Acid Calcium AST ALT Alkaline Phosphatase CK-MB (CK-2) CK-MB (CK-2) Rel Index Total Protein Albumin TSH Urine WBC (Auto) Salicylates 01/11/17 01/11/17 01/11/17 00:19 04:06 05:20 WBC 15.2 H RBC 3.40 L Hgb 8.9 L Hct 26.3 L MCV 78 L MCH 26 L RDW 18.6 H Plt Count 462 H Lymph % (Auto) 13.2 L [place] % (Auto) Eos % (Auto) [place] # Seg Neutrophils % 80.8 H Seg Neuts % (Manual) Lymphocytes % (Manual) Seg Neutrophils # 12.3 H Seg Neutrophils # Man Lymphocytes # (Manual) APTT POC ABG pH 7.463 H ABG pH POC ABG pCO2 26.2 L POC ABG pO2 185 H ABG pO2 ABG HCO3 ABG Base Excess ABG Hemoglobin VBG pH Oxyhemoglobin Sodium Potassium Chloride Carbon Dioxide BUN Creatinine Glucose POC Glucose 163 H Lactic Acid Calcium AST ALT Alkaline Phosphatase CK-MB (CK-2) CK-MB (CK-2) Rel Index Total Protein Albumin TSH Urine WBC (Auto) Salicylates 01/11/17 01/11/17 01/11/17 05:20 06:21 07:57 WBC RBC Hgb Hct MCV MCH RDW Plt Count Lymph % (Auto) [place] % (Auto) Eos % (Auto) [place] # Seg Neutrophils % Seg Neuts % (Manual) Lymphocytes % (Manual) Seg Neutrophils # Seg Neutrophils # Man Lymphocytes # (Manual) APTT POC ABG pH ABG pH POC ABG pCO2 POC ABG pO2 ABG pO2 ABG HCO3 ABG Base Excess ABG Hemoglobin VBG pH Oxyhemoglobin Sodium Potassium 3.4 L Chloride 111.5 H Carbon Dioxide 17 L BUN Creatinine Glucose 147 H POC Glucose 139 H 188 H Lactic Acid Calcium 8.0 L AST ALT Alkaline Phosphatase CK-MB (CK-2) CK-MB (CK-2) Rel Index Total Protein Albumin TSH Urine WBC (Auto) Salicylates 01/11/17 01/11/17 01/11/17 11:46 16:50 23:15 WBC RBC Hgb Hct MCV MCH RDW Plt Count Lymph % (Auto) [place] % (Auto) Eos % (Auto) [place] # Seg Neutrophils % Seg Neuts % (Manual) Lymphocytes % (Manual) Seg Neutrophils # Seg Neutrophils # Man Lymphocytes # (Manual) APTT POC ABG pH ABG pH POC ABG pCO2 POC ABG pO2 ABG pO2 ABG HCO3 ABG Base Excess ABG Hemoglobin VBG pH Oxyhemoglobin Sodium Potassium Chloride Carbon Dioxide BUN Creatinine Glucose POC Glucose 199 H 235 H 155 H Lactic Acid Calcium AST ALT Alkaline Phosphatase CK-MB (CK-2) CK-MB (CK-2) Rel Index Total Protein Albumin TSH Urine WBC (Auto) Salicylates 01/12/17 01/12/17 01/12/17 05:02 06:56 14:50 WBC RBC Hgb Hct MCV MCH RDW Plt Count Lymph % (Auto) [place] % (Auto) Eos % (Auto) [place] # Seg Neutrophils % Seg Neuts % (Manual) Lymphocytes % (Manual) Seg Neutrophils # Seg Neutrophils # Man Lymphocytes # (Manual) APTT POC ABG pH ABG pH POC ABG pCO2 28.0 L POC ABG pO2 178 H ABG pO2 ABG HCO3 ABG Base Excess ABG Hemoglobin VBG pH Oxyhemoglobin Sodium Potassium Chloride Carbon Dioxide BUN Creatinine Glucose POC Glucose 119 H 164 H Lactic Acid Calcium AST ALT Alkaline Phosphatase CK-MB (CK-2) CK-MB (CK-2) Rel Index Total Protein Albumin TSH Urine WBC (Auto) Salicylates 01/13/17 01/13/17 01/13/17 03:37 03:37 04:26 WBC RBC 3.61 L Hgb 9.3 L Hct 28.0 L MCV 78 L MCH 26 L RDW 18.2 H Plt Count Lymph % (Auto) [place] % (Auto) Eos % (Auto) [place] # Seg Neutrophils % Seg Neuts % (Manual) Lymphocytes % (Manual) Seg Neutrophils # Seg Neutrophils # Man Lymphocytes # (Manual) APTT POC ABG pH 7.485 H ABG pH POC ABG pCO2 25.4 L POC ABG pO2 73 L ABG pO2 ABG HCO3 ABG Base Excess ABG Hemoglobin VBG pH Oxyhemoglobin Sodium Potassium Chloride 112.4 H Carbon Dioxide 19 L BUN Creatinine Glucose 118 H POC Glucose Lactic Acid Calcium 8.0 L AST ALT Alkaline Phosphatase CK-MB (CK-2) CK-MB (CK-2) Rel Index Total Protein Albumin TSH Urine WBC (Auto) Salicylates 01/13/17 01/13/17 01/13/17 06:15 11:50 17:31 WBC RBC Hgb Hct MCV MCH RDW Plt Count Lymph % (Auto) [place] % (Auto) Eos % (Auto) [place] # Seg Neutrophils % Seg Neuts % (Manual) Lymphocytes % (Manual) Seg Neutrophils # Seg Neutrophils # Man Lymphocytes # (Manual) APTT POC ABG pH ABG pH POC ABG pCO2 POC ABG pO2 ABG pO2 ABG HCO3 ABG Base Excess ABG Hemoglobin VBG pH Oxyhemoglobin Sodium Potassium Chloride Carbon Dioxide BUN Creatinine Glucose POC Glucose 116 H 171 H 203 H Lactic Acid Calcium AST ALT Alkaline Phosphatase CK-MB (CK-2) CK-MB (CK-2) Rel Index Total Protein Albumin TSH Urine WBC (Auto) Salicylates 01/14/17 01/14/17 01/14/17 00:02 04:50 04:50 WBC RBC 3.32 L Hgb 8.5 L Hct 26.1 L MCV 79 L MCH 26 L RDW 18.2 H Plt Count Lymph % (Auto) [place] % (Auto) 9.0 H Eos % (Auto) [place] # Seg Neutrophils % Seg Neuts % (Manual) Lymphocytes % (Manual) Seg Neutrophils # Seg Neutrophils # Man Lymphocytes # (Manual) APTT POC ABG pH ABG pH POC ABG pCO2 POC ABG pO2 ABG pO2 ABG HCO3 ABG Base Excess ABG Hemoglobin VBG pH Oxyhemoglobin Sodium Potassium Chloride 112.5 H Carbon Dioxide BUN Creatinine Glucose 149 H POC Glucose 157 H Lactic Acid Calcium 8.1 L AST ALT Alkaline Phosphatase CK-MB (CK-2) CK-MB (CK-2) Rel Index Total Protein Albumin TSH Urine WBC (Auto) Salicylates 01/14/17 01/14/17 01/14/17 05:10 11:27 14:07 WBC RBC Hgb Hct MCV MCH RDW Plt Count Lymph % (Auto) [place] % (Auto) Eos % (Auto) [place] # Seg Neutrophils % Seg Neuts % (Manual) Lymphocytes % (Manual) Seg Neutrophils # Seg Neutrophils # Man Lymphocytes # (Manual) APTT POC ABG pH ABG pH POC ABG pCO2 POC ABG pO2 ABG pO2 ABG HCO3 ABG Base Excess ABG Hemoglobin VBG pH Oxyhemoglobin Sodium Potassium Chloride Carbon Dioxide BUN Creatinine Glucose POC Glucose 176 H 147 H Lactic Acid Calcium AST ALT Alkaline Phosphatase CK-MB (CK-2) CK-MB (CK-2) Rel Index Total Protein Albumin TSH Urine WBC (Auto) 53.0 H Salicylates 01/14/17 01/15/17 01/15/17 16:52 00:04 05:26 WBC RBC Hgb Hct MCV MCH RDW Plt Count Lymph % (Auto) [place] % (Auto) Eos % (Auto) [place] # Seg Neutrophils % Seg Neuts % (Manual) Lymphocytes % (Manual) Seg Neutrophils # Seg Neutrophils # Man Lymphocytes # (Manual) APTT POC ABG pH ABG pH POC ABG pCO2 POC ABG pO2 ABG pO2 ABG HCO3 ABG Base Excess ABG Hemoglobin VBG pH Oxyhemoglobin Sodium Potassium Chloride Carbon Dioxide BUN Creatinine Glucose POC Glucose 131 H 193 H 215 H Lactic Acid Calcium AST ALT Alkaline Phosphatase CK-MB (CK-2) CK-MB (CK-2) Rel Index Total Protein Albumin TSH Urine WBC (Auto) Salicylates 01/15/17 01/15/17 01/15/17 11:49 17:47 21:33 WBC RBC Hgb Hct MCV MCH RDW Plt Count Lymph % (Auto) [place] % (Auto) Eos % (Auto) [place] # Seg Neutrophils % Seg Neuts % (Manual) Lymphocytes % (Manual) Seg Neutrophils # Seg Neutrophils # Man Lymphocytes # (Manual) APTT POC ABG pH ABG pH POC ABG pCO2 POC ABG pO2 ABG pO2 ABG HCO3 ABG Base Excess ABG Hemoglobin VBG pH Oxyhemoglobin Sodium Potassium Chloride Carbon Dioxide BUN Creatinine Glucose POC Glucose 121 H 211 H 275 H Lactic Acid Calcium AST ALT Alkaline Phosphatase CK-MB (CK-2) CK-MB (CK-2) Rel Index Total Protein Albumin TSH Urine WBC (Auto) Salicylates 01/16/17 01/16/17 01/16/17 04:30 05:28 13:45 WBC RBC Hgb Hct MCV MCH RDW Plt Count Lymph % (Auto) [place] % (Auto) Eos % (Auto) [place] # Seg Neutrophils % Seg Neuts % (Manual) Lymphocytes % (Manual) Seg Neutrophils # Seg Neutrophils # Man Lymphocytes # (Manual) APTT POC ABG pH ABG pH 7.457 H POC ABG pCO2 POC ABG pO2 ABG pO2 55.1 L ABG HCO3 19.4 L ABG Base Excess -4.0 L ABG Hemoglobin 6.8 L VBG pH Oxyhemoglobin 94.9 L Sodium Potassium Chloride Carbon Dioxide BUN Creatinine Glucose POC Glucose 271 H 236 H Lactic Acid Calcium AST ALT Alkaline Phosphatase CK-MB (CK-2) CK-MB (CK-2) Rel Index Total Protein Albumin TSH Urine WBC (Auto) Salicylates 01/16/17 01/17/17 01/17/17 21:39 04:10 04:10 WBC 4.4 L RBC 2.98 L Hgb 7.7 L Hct 23.3 L MCV 78 L MCH 26 L RDW 18.1 H Plt Count Lymph % (Auto) [place] % (Auto) Eos % (Auto) [place] # Seg Neutrophils % Seg Neuts % (Manual) Lymphocytes % (Manual) Seg Neutrophils # Seg Neutrophils # Man Lymphocytes # (Manual) APTT POC ABG pH ABG pH POC ABG pCO2 POC ABG pO2 ABG pO2 ABG HCO3 ABG Base Excess ABG Hemoglobin VBG pH Oxyhemoglobin Sodium Potassium 3.3 L Chloride 108.7 H Carbon Dioxide 20 L BUN 8 L Creatinine Glucose 202 H POC Glucose 258 H Lactic Acid Calcium 7.6 L AST ALT Alkaline Phosphatase CK-MB (CK-2) CK-MB (CK-2) Rel Index Total Protein Albumin TSH Urine WBC (Auto) Salicylates 01/17/17 01/17/17 01/17/17 04:35 12:23 16:01 WBC RBC Hgb Hct MCV MCH RDW Plt Count Lymph % (Auto) [place] % (Auto) Eos % (Auto) [place] # Seg Neutrophils % Seg Neuts % (Manual) Lymphocytes % (Manual) Seg Neutrophils # Seg Neutrophils # Man Lymphocytes # (Manual) APTT POC ABG pH ABG pH POC ABG pCO2 POC ABG pO2 ABG pO2 160.3 H ABG HCO3 ABG Base Excess -2.3 L ABG Hemoglobin 7.9 L VBG pH Oxyhemoglobin Sodium Potassium Chloride Carbon Dioxide BUN Creatinine Glucose POC Glucose 321 H 239 H Lactic Acid Calcium AST ALT Alkaline Phosphatase CK-MB (CK-2) CK-MB (CK-2) Rel Index Total Protein Albumin TSH Urine WBC (Auto) Salicylates 01/18/17 01/18/17 01/18/17 05:07 12:09 17:54 WBC RBC Hgb Hct MCV MCH RDW Plt Count Lymph % (Auto) [place] % (Auto) Eos % (Auto) [place] # Seg Neutrophils % Seg Neuts % (Manual) Lymphocytes % (Manual) Seg Neutrophils # Seg Neutrophils # Man Lymphocytes # (Manual) APTT POC ABG pH ABG pH POC ABG pCO2 POC ABG pO2 ABG pO2 ABG HCO3 ABG Base Excess ABG Hemoglobin VBG pH Oxyhemoglobin Sodium Potassium Chloride Carbon Dioxide BUN Creatinine Glucose POC Glucose 155 H 203 H 132 H Lactic Acid Calcium AST ALT Alkaline Phosphatase CK-MB (CK-2) CK-MB (CK-2) Rel Index Total Protein Albumin TSH Urine WBC (Auto) Salicylates 01/18/17 01/19/17 01/19/17 23:43 04:28 12:11 WBC RBC Hgb Hct MCV MCH RDW Plt Count Lymph % (Auto) [place] % (Auto) Eos % (Auto) [place] # Seg Neutrophils % Seg Neuts % (Manual) Lymphocytes % (Manual) Seg Neutrophils # Seg Neutrophils # Man Lymphocytes # (Manual) APTT POC ABG pH ABG pH POC ABG pCO2 POC ABG pO2 ABG pO2 ABG HCO3 ABG Base Excess ABG Hemoglobin VBG pH Oxyhemoglobin Sodium Potassium Chloride Carbon Dioxide BUN Creatinine Glucose POC Glucose 125 H 182 H 153 H Lactic Acid Calcium AST ALT Alkaline Phosphatase CK-MB (CK-2) CK-MB (CK-2) Rel Index Total Protein Albumin TSH Urine WBC (Auto) Salicylates 01/19/17 01/20/17 01/20/17 17:23 00:12 05:44 WBC RBC Hgb Hct MCV MCH RDW Plt Count Lymph % (Auto) [place] % (Auto) Eos % (Auto) [place] # Seg Neutrophils % Seg Neuts % (Manual) Lymphocytes % (Manual) Seg Neutrophils # Seg Neutrophils # Man Lymphocytes # (Manual) APTT POC ABG pH ABG pH POC ABG pCO2 POC ABG pO2 ABG pO2 ABG HCO3 ABG Base Excess ABG Hemoglobin VBG pH Oxyhemoglobin Sodium Potassium Chloride Carbon Dioxide BUN Creatinine Glucose POC Glucose 66 L 139 H 176 H Lactic Acid Calcium AST ALT Alkaline Phosphatase CK-MB (CK-2) CK-MB (CK-2) Rel Index Total Protein Albumin TSH Urine WBC (Auto) Salicylates 01/20/17 01/20/17 01/20/17 11:48 17:42 23:43 WBC RBC Hgb Hct MCV MCH RDW Plt Count Lymph % (Auto) [place] % (Auto) Eos % (Auto) [place] # Seg Neutrophils % Seg Neuts % (Manual) Lymphocytes % (Manual) Seg Neutrophils # Seg Neutrophils # Man Lymphocytes # (Manual) APTT POC ABG pH ABG pH POC ABG pCO2 POC ABG pO2 ABG pO2 ABG HCO3 ABG Base Excess ABG Hemoglobin VBG pH Oxyhemoglobin Sodium Potassium Chloride Carbon Dioxide BUN Creatinine Glucose POC Glucose 218 H 132 H 178 H Lactic Acid Calcium AST ALT Alkaline Phosphatase CK-MB (CK-2) CK-MB (CK-2) Rel Index Total Protein Albumin TSH Urine WBC (Auto) Salicylates 01/21/17 01/21/17 01/21/17 05:34 11:17 23:37 WBC RBC Hgb Hct MCV MCH RDW Plt Count Lymph % (Auto) [place] % (Auto) Eos % (Auto) [place] # Seg Neutrophils % Seg Neuts % (Manual) Lymphocytes % (Manual) Seg Neutrophils # Seg Neutrophils # Man Lymphocytes # (Manual) APTT POC ABG pH ABG pH POC ABG pCO2 POC ABG pO2 ABG pO2 ABG HCO3 ABG Base Excess ABG Hemoglobin VBG pH Oxyhemoglobin Sodium Potassium Chloride Carbon Dioxide BUN Creatinine Glucose POC Glucose 106 H 213 H 140 H Lactic Acid Calcium AST ALT Alkaline Phosphatase CK-MB (CK-2) CK-MB (CK-2) Rel Index Total Protein Albumin TSH Urine WBC (Auto) Salicylates 01/22/17 01/22/17 01/22/17 04:00 04:00 04:58 WBC RBC 3.26 L Hgb 8.3 L Hct 25.5 L MCV 78 L MCH 25 L RDW 17.9 H Plt Count Lymph % (Auto) [place] % (Auto) 7.9 H Eos % (Auto) 6.2 H [place] # Seg Neutrophils % Seg Neuts % (Manual) Lymphocytes % (Manual) Seg Neutrophils # Seg Neutrophils # Man Lymphocytes # (Manual) APTT POC ABG pH ABG pH POC ABG pCO2 POC ABG pO2 ABG pO2 ABG HCO3 ABG Base Excess ABG Hemoglobin VBG pH Oxyhemoglobin Sodium Potassium Chloride 95.5 L Carbon Dioxide 31 H D BUN Creatinine Glucose 134 H POC Glucose 146 H Lactic Acid Calcium AST 44 H ALT Alkaline Phosphatase 379 H CK-MB (CK-2) CK-MB (CK-2) Rel Index Total Protein Albumin 2.7 L TSH Urine WBC (Auto) Salicylates 01/22/17 01/22/17 01/22/17 12:12 18:12 23:39 WBC RBC Hgb Hct MCV MCH RDW Plt Count Lymph % (Auto) [place] % (Auto) Eos % (Auto) [place] # Seg Neutrophils % Seg Neuts % (Manual) Lymphocytes % (Manual) Seg Neutrophils # Seg Neutrophils # Man Lymphocytes # (Manual) APTT POC ABG pH ABG pH POC ABG pCO2 POC ABG pO2 ABG pO2 ABG HCO3 ABG Base Excess ABG Hemoglobin VBG pH Oxyhemoglobin Sodium Potassium Chloride Carbon Dioxide BUN Creatinine Glucose POC Glucose 255 H 182 H 134 H Lactic Acid Calcium AST ALT Alkaline Phosphatase CK-MB (CK-2) CK-MB (CK-2) Rel Index Total Protein Albumin TSH Urine WBC (Auto) Salicylates 01/23/17 01/23/17 01/23/17 04:43 12:12 17:36 WBC RBC Hgb Hct MCV MCH RDW Plt Count Lymph % (Auto) [place] % (Auto) Eos % (Auto) [place] # Seg Neutrophils % Seg Neuts % (Manual) Lymphocytes % (Manual) Seg Neutrophils # Seg Neutrophils # Man Lymphocytes # (Manual) APTT POC ABG pH ABG pH POC ABG pCO2 POC ABG pO2 ABG pO2 ABG HCO3 ABG Base Excess ABG Hemoglobin VBG pH Oxyhemoglobin Sodium Potassium Chloride Carbon Dioxide BUN Creatinine Glucose POC Glucose 218 H 128 H 156 H Lactic Acid Calcium AST ALT Alkaline Phosphatase CK-MB (CK-2) CK-MB (CK-2) Rel Index Total Protein Albumin TSH Urine WBC (Auto) Salicylates 01/24/17 01/24/17 01/24/17 00:08 05:16 11:40 WBC RBC Hgb Hct MCV MCH RDW Plt Count Lymph % (Auto) [place] % (Auto) Eos % (Auto) [place] # Seg Neutrophils % Seg Neuts % (Manual) Lymphocytes % (Manual) Seg Neutrophils # Seg Neutrophils # Man Lymphocytes # (Manual) APTT POC ABG pH ABG pH POC ABG pCO2 POC ABG pO2 ABG pO2 ABG HCO3 ABG Base Excess ABG Hemoglobin VBG pH Oxyhemoglobin Sodium Potassium Chloride Carbon Dioxide BUN Creatinine Glucose POC Glucose 129 H 169 H 187 H Lactic Acid Calcium AST ALT Alkaline Phosphatase CK-MB (CK-2) CK-MB (CK-2) Rel Index Total Protein Albumin TSH Urine WBC (Auto) Salicylates 01/24/17 01/24/17 01/25/17 17:43 23:23 04:56 WBC RBC Hgb Hct MCV MCH RDW Plt Count Lymph % (Auto) [place] % (Auto) Eos % (Auto) [place] # Seg Neutrophils % Seg Neuts % (Manual) Lymphocytes % (Manual) Seg Neutrophils # Seg Neutrophils # Man Lymphocytes # (Manual) APTT POC ABG pH ABG pH POC ABG pCO2 POC ABG pO2 ABG pO2 ABG HCO3 ABG Base Excess ABG Hemoglobin VBG pH Oxyhemoglobin Sodium Potassium Chloride Carbon Dioxide BUN Creatinine Glucose POC Glucose 215 H 222 H 210 H Lactic Acid Calcium AST ALT Alkaline Phosphatase CK-MB (CK-2) CK-MB (CK-2) Rel Index Total Protein Albumin TSH Urine WBC (Auto) Salicylates 01/25/17 01/25/17 01/26/17 11:52 17:37 00:02 WBC RBC Hgb Hct MCV MCH RDW Plt Count Lymph % (Auto) [place] % (Auto) Eos % (Auto) [place] # Seg Neutrophils % Seg Neuts % (Manual) Lymphocytes % (Manual) Seg Neutrophils # Seg Neutrophils # Man Lymphocytes # (Manual) APTT POC ABG pH ABG pH POC ABG pCO2 POC ABG pO2 ABG pO2 ABG HCO3 ABG Base Excess ABG Hemoglobin VBG pH Oxyhemoglobin Sodium Potassium Chloride Carbon Dioxide BUN Creatinine Glucose POC Glucose 284 H 218 H 192 H Lactic Acid Calcium AST ALT Alkaline Phosphatase CK-MB (CK-2) CK-MB (CK-2) Rel Index Total Protein Albumin TSH Urine WBC (Auto) Salicylates 01/26/17 01/26/17 01/26/17 05:33 12:17 17:50 WBC RBC Hgb Hct MCV MCH RDW Plt Count Lymph % (Auto) [place] % (Auto) Eos % (Auto) [place] # Seg Neutrophils % Seg Neuts % (Manual) Lymphocytes % (Manual) Seg Neutrophils # Seg Neutrophils # Man Lymphocytes # (Manual) APTT POC ABG pH ABG pH POC ABG pCO2 POC ABG pO2 ABG pO2 ABG HCO3 ABG Base Excess ABG Hemoglobin VBG pH Oxyhemoglobin Sodium Potassium Chloride Carbon Dioxide BUN Creatinine Glucose POC Glucose 199 H 227 H 229 H Lactic Acid Calcium AST ALT Alkaline Phosphatase CK-MB (CK-2) CK-MB (CK-2) Rel Index Total Protein Albumin TSH Urine WBC (Auto) Salicylates 01/26/17 01/27/17 01/27/17 23:57 05:31 11:42 WBC RBC Hgb Hct MCV MCH RDW Plt Count Lymph % (Auto) [place] % (Auto) Eos % (Auto) [place] # Seg Neutrophils % Seg Neuts % (Manual) Lymphocytes % (Manual) Seg Neutrophils # Seg Neutrophils # Man Lymphocytes # (Manual) APTT POC ABG pH ABG pH POC ABG pCO2 POC ABG pO2 ABG pO2 ABG HCO3 ABG Base Excess ABG Hemoglobin VBG pH Oxyhemoglobin Sodium Potassium Chloride Carbon Dioxide BUN Creatinine Glucose POC Glucose 186 H 285 H 260 H Lactic Acid Calcium AST ALT Alkaline Phosphatase CK-MB (CK-2) CK-MB (CK-2) Rel Index Total Protein Albumin TSH Urine WBC (Auto) Salicylates 01/27/17 01/27/17 01/27/17 17:47 23:58 Unknown WBC 12.1 H RBC 3.28 L Hgb 8.5 L Hct 25.5 L MCV 78 L MCH 26 L RDW 16.8 H Plt Count 601 H Lymph % (Auto) [place] % (Auto) Eos % (Auto) [place] # Seg Neutrophils % Seg Neuts % (Manual) Lymphocytes % (Manual) Seg Neutrophils # Seg Neutrophils # Man Lymphocytes # (Manual) APTT POC ABG pH ABG pH POC ABG pCO2 POC ABG pO2 ABG pO2 ABG HCO3 ABG Base Excess ABG Hemoglobin VBG pH Oxyhemoglobin Sodium Potassium Chloride Carbon Dioxide BUN Creatinine Glucose POC Glucose 329 H 225 H Lactic Acid Calcium AST ALT Alkaline Phosphatase CK-MB (CK-2) CK-MB (CK-2) Rel Index Total Protein Albumin TSH Urine WBC (Auto) Salicylates 01/27/17 01/28/17 01/28/17 Unknown 03:44 03:44 WBC RBC 3.14 L Hgb 8.2 L Hct 24.1 L MCV 77 L MCH 26 L RDW 16.9 H Plt Count 567 H Lymph % (Auto) [place] % (Auto) Eos % (Auto) [place] # Seg Neutrophils % Seg Neuts % (Manual) Lymphocytes % (Manual) Seg Neutrophils # Seg Neutrophils # Man Lymphocytes # (Manual) APTT POC ABG pH ABG pH POC ABG pCO2 POC ABG pO2 ABG pO2 ABG HCO3 ABG Base Excess ABG Hemoglobin VBG pH Oxyhemoglobin Sodium 128 L Potassium 5.4 H Chloride 87.5 L Carbon Dioxide BUN 44 H 42 H Creatinine Glucose 250 H 128 H POC Glucose Lactic Acid Calcium AST ALT Alkaline Phosphatase CK-MB (CK-2) CK-MB (CK-2) Rel Index Total Protein Albumin TSH Urine WBC (Auto) Salicylates 01/28/17 01/28/17 01/28/17 11:43 16:47 17:52 WBC RBC Hgb Hct MCV MCH RDW Plt Count Lymph % (Auto) [place] % (Auto) Eos % (Auto) [place] # Seg Neutrophils % Seg Neuts % (Manual) Lymphocytes % (Manual) Seg Neutrophils # Seg Neutrophils # Man Lymphocytes # (Manual) APTT POC ABG pH ABG pH POC ABG pCO2 POC ABG pO2 ABG pO2 ABG HCO3 ABG Base Excess ABG Hemoglobin VBG pH Oxyhemoglobin Sodium Potassium Chloride Carbon Dioxide BUN Creatinine Glucose POC Glucose 351 H 249 H Lactic Acid Calcium AST ALT Alkaline Phosphatase CK-MB (CK-2) CK-MB (CK-2) Rel Index Total Protein Albumin TSH Urine WBC (Auto) > 182.0 H Salicylates 01/29/17 01/29/17 01/29/17 05:25 05:25 09:32 WBC 13.6 H RBC 3.25 L Hgb 8.3 L Hct 25.1 L MCV 77 L MCH 26 L RDW 16.8 H Plt Count 514 H Lymph % (Auto) [place] % (Auto) Eos % (Auto) [place] # Seg Neutrophils % Seg Neuts % (Manual) Lymphocytes % (Manual) Seg Neutrophils # Seg Neutrophils # Man Lymphocytes # (Manual) APTT POC ABG pH ABG pH POC ABG pCO2 POC ABG pO2 ABG pO2 ABG HCO3 ABG Base Excess ABG Hemoglobin VBG pH Oxyhemoglobin Sodium Potassium Chloride 97.8 L Carbon Dioxide BUN 34 H Creatinine Glucose 222 H POC Glucose Lactic Acid 2.50 H* Calcium AST ALT Alkaline Phosphatase CK-MB (CK-2) CK-MB (CK-2) Rel Index Total Protein Albumin TSH Urine WBC (Auto) Salicylates 01/29/17 01/29/17 01/29/17 11:56 18:11 23:55 WBC RBC Hgb Hct MCV MCH RDW Plt Count Lymph % (Auto) [place] % (Auto) Eos % (Auto) [place] # Seg Neutrophils % Seg Neuts % (Manual) Lymphocytes % (Manual) Seg Neutrophils # Seg Neutrophils # Man Lymphocytes # (Manual) APTT POC ABG pH ABG pH POC ABG pCO2 POC ABG pO2 ABG pO2 ABG HCO3 ABG Base Excess ABG Hemoglobin VBG pH Oxyhemoglobin Sodium Potassium Chloride Carbon Dioxide BUN Creatinine Glucose POC Glucose 261 H 215 H 176 H Lactic Acid Calcium AST ALT Alkaline Phosphatase CK-MB (CK-2) CK-MB (CK-2) Rel Index Total Protein Albumin TSH Urine WBC (Auto) Salicylates 01/30/17 01/30/17 01/30/17 05:31 05:31 05:34 WBC 15.2 H RBC 3.09 L Hgb 7.9 L Hct 23.9 L MCV 77 L MCH 26 L RDW 16.9 H Plt Count 569 H Lymph % (Auto) [place] % (Auto) Eos % (Auto) [place] # Seg Neutrophils % Seg Neuts % (Manual) Lymphocytes % (Manual) Seg Neutrophils # Seg Neutrophils # Man Lymphocytes # (Manual) APTT POC ABG pH ABG pH POC ABG pCO2 POC ABG pO2 ABG pO2 ABG HCO3 ABG Base Excess ABG Hemoglobin VBG pH Oxyhemoglobin Sodium Potassium Chloride Carbon Dioxide BUN 24 H Creatinine Glucose 235 H POC Glucose 243 H Lactic Acid Calcium AST ALT Alkaline Phosphatase CK-MB (CK-2) CK-MB (CK-2) Rel Index Total Protein Albumin TSH Urine WBC (Auto) Salicylates 01/30/17 01/30/17 01/30/17 11:38 17:58 23:29 WBC RBC Hgb Hct MCV MCH RDW Plt Count Lymph % (Auto) [place] % (Auto) Eos % (Auto) [place] # Seg Neutrophils % Seg Neuts % (Manual) Lymphocytes % (Manual) Seg Neutrophils # Seg Neutrophils # Man Lymphocytes # (Manual) APTT POC ABG pH ABG pH POC ABG pCO2 POC ABG pO2 ABG pO2 ABG HCO3 ABG Base Excess ABG Hemoglobin VBG pH Oxyhemoglobin Sodium Potassium Chloride Carbon Dioxide BUN Creatinine Glucose POC Glucose 298 H 208 H 245 H Lactic Acid Calcium AST ALT Alkaline Phosphatase CK-MB (CK-2) CK-MB (CK-2) Rel Index Total Protein Albumin TSH Urine WBC (Auto) Salicylates 01/31/17 01/31/17 01/31/17 04:39 04:39 05:57 WBC 11.4 H RBC 3.22 L Hgb 8.2 L Hct 24.9 L MCV 78 L MCH 25 L RDW 17.2 H Plt Count 576 H Lymph % (Auto) [place] % (Auto) Eos % (Auto) [place] # Seg Neutrophils % Seg Neuts % (Manual) Lymphocytes % (Manual) Seg Neutrophils # Seg Neutrophils # Man Lymphocytes # (Manual) APTT POC ABG pH ABG pH POC ABG pCO2 POC ABG pO2 ABG pO2 ABG HCO3 ABG Base Excess ABG Hemoglobin VBG pH Oxyhemoglobin Sodium Potassium Chloride Carbon Dioxide BUN Creatinine 0.7 L Glucose 223 H POC Glucose 264 H Lactic Acid Calcium AST ALT Alkaline Phosphatase CK-MB (CK-2) CK-MB (CK-2) Rel Index Total Protein Albumin TSH Urine WBC (Auto) Salicylates 01/31/17 01/31/17 01/31/17 12:23 17:41 18:55 WBC RBC Hgb Hct MCV MCH RDW Plt Count Lymph % (Auto) [place] % (Auto) Eos % (Auto) [place] # Seg Neutrophils % Seg Neuts % (Manual) Lymphocytes % (Manual) Seg Neutrophils # Seg Neutrophils # Man Lymphocytes # (Manual) APTT POC ABG pH ABG pH POC ABG pCO2 32.8 L POC ABG pO2 ABG pO2 ABG HCO3 ABG Base Excess ABG Hemoglobin VBG pH Oxyhemoglobin Sodium Potassium Chloride Carbon Dioxide BUN Creatinine Glucose POC Glucose 252 H 208 H Lactic Acid Calcium AST ALT Alkaline Phosphatase CK-MB (CK-2) CK-MB (CK-2) Rel Index Total Protein Albumin TSH Urine WBC (Auto) Salicylates 01/31/17 02/01/17 02/01/17 22:59 03:38 03:38 WBC RBC 2.81 L Hgb 7.4 L Hct 22.1 L MCV 79 L MCH 27 L RDW 17.0 H Plt Count 540 H Lymph % (Auto) [place] % (Auto) Eos % (Auto) [place] # Seg Neutrophils % Seg Neuts % (Manual) Lymphocytes % (Manual) Seg Neutrophils # Seg Neutrophils # Man Lymphocytes # (Manual) APTT POC ABG pH ABG pH POC ABG pCO2 POC ABG pO2 ABG pO2 ABG HCO3 ABG Base Excess ABG Hemoglobin VBG pH Oxyhemoglobin Sodium Potassium Chloride Carbon Dioxide 21 L BUN Creatinine 0.7 L Glucose POC Glucose 40 L Lactic Acid Calcium AST ALT Alkaline Phosphatase CK-MB (CK-2) CK-MB (CK-2) Rel Index Total Protein Albumin TSH Urine WBC (Auto) Salicylates 02/01/17 02/01/17 02/01/17 05:17 12:19 16:44 WBC RBC Hgb Hct MCV MCH RDW Plt Count Lymph % (Auto) [place] % (Auto) Eos % (Auto) [place] # Seg Neutrophils % Seg Neuts % (Manual) Lymphocytes % (Manual) Seg Neutrophils # Seg Neutrophils # Man Lymphocytes # (Manual) APTT POC ABG pH ABG pH POC ABG pCO2 POC ABG pO2 ABG pO2 ABG HCO3 ABG Base Excess ABG Hemoglobin VBG pH Oxyhemoglobin Sodium Potassium Chloride Carbon Dioxide BUN Creatinine Glucose POC Glucose 140 H 213 H 172 H Lactic Acid Calcium AST ALT Alkaline Phosphatase CK-MB (CK-2) CK-MB (CK-2) Rel Index Total Protein Albumin TSH Urine WBC (Auto) Salicylates 02/01/17 02/02/17 02/02/17 23:59 05:14 11:24 WBC RBC Hgb Hct MCV MCH RDW Plt Count Lymph % (Auto) [place] % (Auto) Eos % (Auto) [place] # Seg Neutrophils % Seg Neuts % (Manual) Lymphocytes % (Manual) Seg Neutrophils # Seg Neutrophils # Man Lymphocytes # (Manual) APTT POC ABG pH ABG pH POC ABG pCO2 POC ABG pO2 ABG pO2 ABG HCO3 ABG Base Excess ABG Hemoglobin VBG pH Oxyhemoglobin Sodium Potassium Chloride Carbon Dioxide BUN Creatinine Glucose POC Glucose 181 H 194 H 209 H Lactic Acid Calcium AST ALT Alkaline Phosphatase CK-MB (CK-2) CK-MB (CK-2) Rel Index Total Protein Albumin TSH Urine WBC (Auto) Salicylates 02/02/17 02/02/17 02/02/17 11:46 11:46 17:47 WBC RBC 2.94 L Hgb 7.5 L Hct 23.0 L MCV 78 L MCH 25 L RDW 16.9 H Plt Count 520 H Lymph % (Auto) [place] % (Auto) Eos % (Auto) [place] # Seg Neutrophils % Seg Neuts % (Manual) Lymphocytes % (Manual) Seg Neutrophils # Seg Neutrophils # Man Lymphocytes # (Manual) APTT POC ABG pH ABG pH POC ABG pCO2 POC ABG pO2 ABG pO2 ABG HCO3 ABG Base Excess ABG Hemoglobin VBG pH Oxyhemoglobin Sodium Potassium Chloride Carbon Dioxide BUN Creatinine 0.6 L Glucose 189 H POC Glucose 147 H Lactic Acid Calcium 8.1 L AST ALT Alkaline Phosphatase CK-MB (CK-2) CK-MB (CK-2) Rel Index Total Protein Albumin TSH Urine WBC (Auto) Salicylates 02/02/17 02/03/17 02/03/17 23:32 05:53 11:19 WBC RBC Hgb Hct MCV MCH RDW Plt Count Lymph % (Auto) [place] % (Auto) Eos % (Auto) [place] # Seg Neutrophils % Seg Neuts % (Manual) Lymphocytes % (Manual) Seg Neutrophils # Seg Neutrophils # Man Lymphocytes # (Manual) APTT POC ABG pH ABG pH POC ABG pCO2 POC ABG pO2 ABG pO2 ABG HCO3 ABG Base Excess ABG Hemoglobin VBG pH Oxyhemoglobin Sodium Potassium Chloride Carbon Dioxide BUN Creatinine Glucose POC Glucose 176 H 224 H 228 H Lactic Acid Calcium AST ALT Alkaline Phosphatase CK-MB (CK-2) CK-MB (CK-2) Rel Index Total Protein Albumin TSH Urine WBC (Auto) Salicylates 02/03/17 02/03/17 02/04/17 16:59 23:38 05:45 WBC RBC Hgb Hct MCV MCH RDW Plt Count Lymph % (Auto) [place] % (Auto) Eos % (Auto) [place] # Seg Neutrophils % Seg Neuts % (Manual) Lymphocytes % (Manual) Seg Neutrophils # Seg Neutrophils # Man Lymphocytes # (Manual) APTT POC ABG pH ABG pH POC ABG pCO2 POC ABG pO2 ABG pO2 ABG HCO3 ABG Base Excess ABG Hemoglobin VBG pH Oxyhemoglobin Sodium Potassium Chloride Carbon Dioxide BUN Creatinine Glucose POC Glucose 189 H 191 H 251 H Lactic Acid Calcium AST ALT Alkaline Phosphatase CK-MB (CK-2) CK-MB (CK-2) Rel Index Total Protein Albumin TSH Urine WBC (Auto) Salicylates 02/04/17 02/04/17 02/05/17 11:20 17:20 00:17 WBC RBC Hgb Hct MCV MCH RDW Plt Count Lymph % (Auto) [place] % (Auto) Eos % (Auto) [place] # Seg Neutrophils % Seg Neuts % (Manual) Lymphocytes % (Manual) Seg Neutrophils # Seg Neutrophils # Man Lymphocytes # (Manual) APTT POC ABG pH ABG pH POC ABG pCO2 POC ABG pO2 ABG pO2 ABG HCO3 ABG Base Excess ABG Hemoglobin VBG pH Oxyhemoglobin Sodium Potassium Chloride Carbon Dioxide BUN Creatinine Glucose POC Glucose 243 H 163 H 200 H Lactic Acid Calcium AST ALT Alkaline Phosphatase CK-MB (CK-2) CK-MB (CK-2) Rel Index Total Protein Albumin TSH Urine WBC (Auto) Salicylates 02/05/17 02/05/17 02/05/17 05:38 12:38 16:29 WBC RBC Hgb Hct MCV MCH RDW Plt Count Lymph % (Auto) [place] % (Auto) Eos % (Auto) [place] # Seg Neutrophils % Seg Neuts % (Manual) Lymphocytes % (Manual) Seg Neutrophils # Seg Neutrophils # Man Lymphocytes # (Manual) APTT POC ABG pH ABG pH POC ABG pCO2 POC ABG pO2 ABG pO2 ABG HCO3 ABG Base Excess ABG Hemoglobin VBG pH Oxyhemoglobin Sodium Potassium Chloride Carbon Dioxide BUN Creatinine Glucose POC Glucose 248 H 241 H 257 H Lactic Acid Calcium AST ALT Alkaline Phosphatase CK-MB (CK-2) CK-MB (CK-2) Rel Index Total Protein Albumin TSH Urine WBC (Auto) Salicylates 02/05/17 02/06/17 02/06/17 23:56 05:30 11:50 WBC RBC Hgb Hct MCV MCH RDW Plt Count Lymph % (Auto) [place] % (Auto) Eos % (Auto) [place] # Seg Neutrophils % Seg Neuts % (Manual) Lymphocytes % (Manual) Seg Neutrophils # Seg Neutrophils # Man Lymphocytes # (Manual) APTT POC ABG pH ABG pH POC ABG pCO2 POC ABG pO2 ABG pO2 ABG HCO3 ABG Base Excess ABG Hemoglobin VBG pH Oxyhemoglobin Sodium Potassium Chloride Carbon Dioxide BUN Creatinine Glucose POC Glucose 258 H 120 H 254 H Lactic Acid Calcium AST ALT Alkaline Phosphatase CK-MB (CK-2) CK-MB (CK-2) Rel Index Total Protein Albumin TSH Urine WBC (Auto) Salicylates 02/06/17 02/06/17 02/07/17 17:11 23:50 05:22 WBC RBC Hgb Hct MCV MCH RDW Plt Count Lymph % (Auto) [place] % (Auto) Eos % (Auto) [place] # Seg Neutrophils % Seg Neuts % (Manual) Lymphocytes % (Manual) Seg Neutrophils # Seg Neutrophils # Man Lymphocytes # (Manual) APTT POC ABG pH ABG pH POC ABG pCO2 POC ABG pO2 ABG pO2 ABG HCO3 ABG Base Excess ABG Hemoglobin VBG pH Oxyhemoglobin Sodium Potassium Chloride Carbon Dioxide BUN Creatinine Glucose POC Glucose 149 H 240 H 258 H Lactic Acid Calcium AST ALT Alkaline Phosphatase CK-MB (CK-2) CK-MB (CK-2) Rel Index Total Protein Albumin TSH Urine WBC (Auto) Salicylates 02/07/17 02/07/17 02/07/17 11:15 18:33 23:59 WBC RBC Hgb Hct MCV MCH RDW Plt Count Lymph % (Auto) [place] % (Auto) Eos % (Auto) [place] # Seg Neutrophils % Seg Neuts % (Manual) Lymphocytes % (Manual) Seg Neutrophils # Seg Neutrophils # Man Lymphocytes # (Manual) APTT POC ABG pH ABG pH POC ABG pCO2 POC ABG pO2 ABG pO2 ABG HCO3 ABG Base Excess ABG Hemoglobin VBG pH Oxyhemoglobin Sodium Potassium Chloride Carbon Dioxide BUN Creatinine Glucose POC Glucose 239 H 176 H 186 H Lactic Acid Calcium AST ALT Alkaline Phosphatase CK-MB (CK-2) CK-MB (CK-2) Rel Index Total Protein Albumin TSH Urine WBC (Auto) Salicylates 02/08/17 02/08/17 02/08/17 06:15 11:55 16:55 WBC RBC Hgb Hct MCV MCH RDW Plt Count Lymph % (Auto) [place] % (Auto) Eos % (Auto) [place] # Seg Neutrophils % Seg Neuts % (Manual) Lymphocytes % (Manual) Seg Neutrophils # Seg Neutrophils # Man Lymphocytes # (Manual) APTT POC ABG pH ABG pH POC ABG pCO2 POC ABG pO2 ABG pO2 ABG HCO3 ABG Base Excess ABG Hemoglobin VBG pH Oxyhemoglobin Sodium Potassium Chloride Carbon Dioxide BUN Creatinine Glucose POC Glucose 195 H 129 H 246 H Lactic Acid Calcium AST ALT Alkaline Phosphatase CK-MB (CK-2) CK-MB (CK-2) Rel Index Total Protein Albumin TSH Urine WBC (Auto) Salicylates 02/08/17 02/09/17 02/09/17 23:51 05:51 07:24 WBC 14.7 H RBC 3.39 L Hgb 8.9 L Hct 26.4 L MCV 78 L MCH 26 L RDW 18.4 H Plt Count 670 H Lymph % (Auto) 11.8 L [place] % (Auto) Eos % (Auto) [place] # Seg Neutrophils % 81.2 H Seg Neuts % (Manual) Lymphocytes % (Manual) Seg Neutrophils # 11.9 H Seg Neutrophils # Man Lymphocytes # (Manual) APTT POC ABG pH ABG pH POC ABG pCO2 POC ABG pO2 ABG pO2 ABG HCO3 ABG Base Excess ABG Hemoglobin VBG pH Oxyhemoglobin Sodium Potassium Chloride Carbon Dioxide BUN Creatinine Glucose POC Glucose 262 H 295 H Lactic Acid Calcium AST ALT Alkaline Phosphatase CK-MB (CK-2) CK-MB (CK-2) Rel Index Total Protein Albumin TSH Urine WBC (Auto) Salicylates 02/09/17 02/09/17 02/09/17 07:24 12:08 18:39 WBC RBC Hgb Hct MCV MCH RDW Plt Count Lymph % (Auto) [place] % (Auto) Eos % (Auto) [place] # Seg Neutrophils % Seg Neuts % (Manual) Lymphocytes % (Manual) Seg Neutrophils # Seg Neutrophils # Man Lymphocytes # (Manual) APTT POC ABG pH ABG pH POC ABG pCO2 POC ABG pO2 ABG pO2 ABG HCO3 ABG Base Excess ABG Hemoglobin VBG pH Oxyhemoglobin Sodium Potassium Chloride 95.5 L Carbon Dioxide BUN 52 H Creatinine Glucose 277 H POC Glucose 236 H 151 H Lactic Acid Calcium AST ALT Alkaline Phosphatase CK-MB (CK-2) CK-MB (CK-2) Rel Index Total Protein Albumin TSH Urine WBC (Auto) Salicylates 02/10/17 02/10/17 02/10/17 00:01 05:44 11:21 WBC RBC Hgb Hct MCV MCH RDW Plt Count Lymph % (Auto) [place] % (Auto) Eos % (Auto) [place] # Seg Neutrophils % Seg Neuts % (Manual) Lymphocytes % (Manual) Seg Neutrophils # Seg Neutrophils # Man Lymphocytes # (Manual) APTT POC ABG pH ABG pH POC ABG pCO2 POC ABG pO2 ABG pO2 ABG HCO3 ABG Base Excess ABG Hemoglobin VBG pH Oxyhemoglobin Sodium Potassium Chloride Carbon Dioxide BUN Creatinine Glucose POC Glucose 210 H 201 H 233 H Lactic Acid Calcium AST ALT Alkaline Phosphatase CK-MB (CK-2) CK-MB (CK-2) Rel Index Total Protein Albumin TSH Urine WBC (Auto) Salicylates 02/10/17 02/10/17 02/11/17 17:29 23:56 05:24 WBC RBC Hgb Hct MCV MCH RDW Plt Count Lymph % (Auto) [place] % (Auto) Eos % (Auto) [place] # Seg Neutrophils % Seg Neuts % (Manual) Lymphocytes % (Manual) Seg Neutrophils # Seg Neutrophils # Man Lymphocytes # (Manual) APTT POC ABG pH ABG pH POC ABG pCO2 POC ABG pO2 ABG pO2 ABG HCO3 ABG Base Excess ABG Hemoglobin VBG pH Oxyhemoglobin Sodium Potassium Chloride Carbon Dioxide BUN Creatinine Glucose POC Glucose 167 H 191 H 135 H Lactic Acid Calcium AST ALT Alkaline Phosphatase CK-MB (CK-2) CK-MB (CK-2) Rel Index Total Protein Albumin TSH Urine WBC (Auto) Salicylates 02/11/17 02/11/17 02/11/17 12:25 17:03 23:59 WBC RBC Hgb Hct MCV MCH RDW Plt Count Lymph % (Auto) [place] % (Auto) Eos % (Auto) [place] # Seg Neutrophils % Seg Neuts % (Manual) Lymphocytes % (Manual) Seg Neutrophils # Seg Neutrophils # Man Lymphocytes # (Manual) APTT POC ABG pH ABG pH POC ABG pCO2 POC ABG pO2 ABG pO2 ABG HCO3 ABG Base Excess ABG Hemoglobin VBG pH Oxyhemoglobin Sodium Potassium Chloride Carbon Dioxide BUN Creatinine Glucose POC Glucose 275 H 172 H 215 H Lactic Acid Calcium AST ALT Alkaline Phosphatase CK-MB (CK-2) CK-MB (CK-2) Rel Index Total Protein Albumin TSH Urine WBC (Auto) Salicylates 02/12/17 02/12/17 02/12/17 05:39 11:33 17:55 WBC RBC Hgb Hct MCV MCH RDW Plt Count Lymph % (Auto) [place] % (Auto) Eos % (Auto) [place] # Seg Neutrophils % Seg Neuts % (Manual) Lymphocytes % (Manual) Seg Neutrophils # Seg Neutrophils # Man Lymphocytes # (Manual) APTT POC ABG pH ABG pH POC ABG pCO2 POC ABG pO2 ABG pO2 ABG HCO3 ABG Base Excess ABG Hemoglobin VBG pH Oxyhemoglobin Sodium Potassium Chloride Carbon Dioxide BUN Creatinine Glucose POC Glucose 261 H 217 H 172 H Lactic Acid Calcium AST ALT Alkaline Phosphatase CK-MB (CK-2) CK-MB (CK-2) Rel Index Total Protein Albumin TSH Urine WBC (Auto) Salicylates 02/13/17 02/13/17 02/13/17 00:25 06:46 11:26 WBC RBC Hgb Hct MCV MCH RDW Plt Count Lymph % (Auto) [place] % (Auto) Eos % (Auto) [place] # Seg Neutrophils % Seg Neuts % (Manual) Lymphocytes % (Manual) Seg Neutrophils # Seg Neutrophils # Man Lymphocytes # (Manual) APTT POC ABG pH ABG pH POC ABG pCO2 POC ABG pO2 ABG pO2 ABG HCO3 ABG Base Excess ABG Hemoglobin VBG pH Oxyhemoglobin Sodium Potassium Chloride Carbon Dioxide BUN Creatinine Glucose POC Glucose 207 H 219 H 231 H Lactic Acid Calcium AST ALT Alkaline Phosphatase CK-MB (CK-2) CK-MB (CK-2) Rel Index Total Protein Albumin TSH Urine WBC (Auto) Salicylates 02/13/17 02/13/17 02/14/17 17:12 23:44 05:44 WBC RBC Hgb Hct MCV MCH RDW Plt Count Lymph % (Auto) [place] % (Auto) Eos % (Auto) [place] # Seg Neutrophils % Seg Neuts % (Manual) Lymphocytes % (Manual) Seg Neutrophils # Seg Neutrophils # Man Lymphocytes # (Manual) APTT POC ABG pH ABG pH POC ABG pCO2 POC ABG pO2 ABG pO2 ABG HCO3 ABG Base Excess ABG Hemoglobin VBG pH Oxyhemoglobin Sodium Potassium Chloride Carbon Dioxide BUN Creatinine Glucose POC Glucose 190 H 256 H 184 H Lactic Acid Calcium AST ALT Alkaline Phosphatase CK-MB (CK-2) CK-MB (CK-2) Rel Index Total Protein Albumin TSH Urine WBC (Auto) Salicylates 02/14/17 02/14/17 02/14/17 12:21 17:57 23:18 WBC RBC Hgb Hct MCV MCH RDW Plt Count Lymph % (Auto) [place] % (Auto) Eos % (Auto) [place] # Seg Neutrophils % Seg Neuts % (Manual) Lymphocytes % (Manual) Seg Neutrophils # Seg Neutrophils # Man Lymphocytes # (Manual) APTT POC ABG pH ABG pH POC ABG pCO2 POC ABG pO2 ABG pO2 ABG HCO3 ABG Base Excess ABG Hemoglobin VBG pH Oxyhemoglobin Sodium Potassium Chloride Carbon Dioxide BUN Creatinine Glucose POC Glucose 233 H 155 H 165 H Lactic Acid Calcium AST ALT Alkaline Phosphatase CK-MB (CK-2) CK-MB (CK-2) Rel Index Total Protein Albumin TSH Urine WBC (Auto) Salicylates 02/15/17 02/15/17 02/15/17 05:33 11:45 17:20 WBC RBC Hgb Hct MCV MCH RDW Plt Count Lymph % (Auto) [place] % (Auto) Eos % (Auto) [place] # Seg Neutrophils % Seg Neuts % (Manual) Lymphocytes % (Manual) Seg Neutrophils # Seg Neutrophils # Man Lymphocytes # (Manual) APTT POC ABG pH ABG pH POC ABG pCO2 POC ABG pO2 ABG pO2 ABG HCO3 ABG Base Excess ABG Hemoglobin VBG pH Oxyhemoglobin Sodium Potassium Chloride Carbon Dioxide BUN Creatinine Glucose POC Glucose 239 H 130 H 189 H Lactic Acid Calcium AST ALT Alkaline Phosphatase CK-MB (CK-2) CK-MB (CK-2) Rel Index Total Protein Albumin TSH Urine WBC (Auto) Salicylates 02/16/17 02/16/17 02/16/17 00:14 05:09 12:31 WBC RBC Hgb Hct MCV MCH RDW Plt Count Lymph % (Auto) [place] % (Auto) Eos % (Auto) [place] # Seg Neutrophils % Seg Neuts % (Manual) Lymphocytes % (Manual) Seg Neutrophils # Seg Neutrophils # Man Lymphocytes # (Manual) APTT POC ABG pH ABG pH POC ABG pCO2 POC ABG pO2 ABG pO2 ABG HCO3 ABG Base Excess ABG Hemoglobin VBG pH Oxyhemoglobin Sodium Potassium Chloride Carbon Dioxide BUN Creatinine Glucose POC Glucose 197 H 226 H 178 H Lactic Acid Calcium AST ALT Alkaline Phosphatase CK-MB (CK-2) CK-MB (CK-2) Rel Index Total Protein Albumin TSH Urine WBC (Auto) Salicylates 02/16/17 02/16/17 02/17/17 16:35 23:49 05:37 WBC RBC Hgb Hct MCV MCH RDW Plt Count Lymph % (Auto) [place] % (Auto) Eos % (Auto) [place] # Seg Neutrophils % Seg Neuts % (Manual) Lymphocytes % (Manual) Seg Neutrophils # Seg Neutrophils # Man Lymphocytes # (Manual) APTT POC ABG pH ABG pH POC ABG pCO2 POC ABG pO2 ABG pO2 ABG HCO3 ABG Base Excess ABG Hemoglobin VBG pH Oxyhemoglobin Sodium Potassium Chloride Carbon Dioxide BUN Creatinine Glucose POC Glucose 174 H 62 L 153 H Lactic Acid Calcium AST ALT Alkaline Phosphatase CK-MB (CK-2) CK-MB (CK-2) Rel Index Total Protein Albumin TSH Urine WBC (Auto) Salicylates 02/17/17 02/17/17 02/17/17 11:39 17:02 22:24 WBC RBC Hgb Hct MCV MCH RDW Plt Count Lymph % (Auto) [place] % (Auto) Eos % (Auto) [place] # Seg Neutrophils % Seg Neuts % (Manual) Lymphocytes % (Manual) Seg Neutrophils # Seg Neutrophils # Man Lymphocytes # (Manual) APTT POC ABG pH ABG pH POC ABG pCO2 POC ABG pO2 ABG pO2 ABG HCO3 ABG Base Excess ABG Hemoglobin VBG pH Oxyhemoglobin Sodium Potassium Chloride Carbon Dioxide BUN Creatinine Glucose POC Glucose 231 H 112 H 116 H Lactic Acid Calcium AST ALT Alkaline Phosphatase CK-MB (CK-2) CK-MB (CK-2) Rel Index Total Protein Albumin TSH Urine WBC (Auto) Salicylates 02/18/17 02/19/17 02/19/17 15:34 05:09 07:57 WBC RBC Hgb Hct MCV MCH RDW Plt Count Lymph % (Auto) [place] % (Auto) Eos % (Auto) [place] # Seg Neutrophils % Seg Neuts % (Manual) Lymphocytes % (Manual) Seg Neutrophils # Seg Neutrophils # Man Lymphocytes # (Manual) APTT POC ABG pH ABG pH POC ABG pCO2 POC ABG pO2 ABG pO2 ABG HCO3 ABG Base Excess ABG Hemoglobin VBG pH Oxyhemoglobin Sodium Potassium Chloride Carbon Dioxide BUN Creatinine Glucose POC Glucose 215 H 218 H 283 H Lactic Acid Calcium AST ALT Alkaline Phosphatase CK-MB (CK-2) CK-MB (CK-2) Rel Index Total Protein Albumin TSH Urine WBC (Auto) Salicylates 02/19/17 02/19/17 02/20/17 14:49 22:10 05:10 WBC RBC Hgb Hct MCV MCH RDW Plt Count Lymph % (Auto) [place] % (Auto) Eos % (Auto) [place] # Seg Neutrophils % Seg Neuts % (Manual) Lymphocytes % (Manual) Seg Neutrophils # Seg Neutrophils # Man Lymphocytes # (Manual) APTT POC ABG pH ABG pH POC ABG pCO2 POC ABG pO2 ABG pO2 ABG HCO3 ABG Base Excess ABG Hemoglobin VBG pH Oxyhemoglobin Sodium Potassium Chloride Carbon Dioxide BUN Creatinine Glucose POC Glucose 290 H 169 H 209 H Lactic Acid Calcium AST ALT Alkaline Phosphatase CK-MB (CK-2) CK-MB (CK-2) Rel Index Total Protein Albumin TSH Urine WBC (Auto) Salicylates 02/20/17 02/20/17 02/21/17 15:05 21:52 02:00 WBC RBC Hgb Hct MCV MCH RDW Plt Count Lymph % (Auto) [place] % (Auto) Eos % (Auto) [place] # Seg Neutrophils % Seg Neuts % (Manual) Lymphocytes % (Manual) Seg Neutrophils # Seg Neutrophils # Man Lymphocytes # (Manual) APTT POC ABG pH ABG pH POC ABG pCO2 POC ABG pO2 ABG pO2 ABG HCO3 ABG Base Excess ABG Hemoglobin VBG pH Oxyhemoglobin Sodium Potassium Chloride Carbon Dioxide BUN Creatinine Glucose POC Glucose 172 H 209 H 216 H Lactic Acid Calcium AST ALT Alkaline Phosphatase CK-MB (CK-2) CK-MB (CK-2) Rel Index Total Protein Albumin TSH Urine WBC (Auto) Salicylates 02/21/17 02/21/17 02/21/17 04:54 14:43 17:47 WBC RBC Hgb Hct MCV MCH RDW Plt Count Lymph % (Auto) [place] % (Auto) Eos % (Auto) [place] # Seg Neutrophils % Seg Neuts % (Manual) Lymphocytes % (Manual) Seg Neutrophils # Seg Neutrophils # Man Lymphocytes # (Manual) APTT POC ABG pH ABG pH POC ABG pCO2 POC ABG pO2 ABG pO2 ABG HCO3 ABG Base Excess ABG Hemoglobin VBG pH Oxyhemoglobin Sodium Potassium Chloride Carbon Dioxide BUN Creatinine Glucose POC Glucose 227 H 290 H 220 H Lactic Acid Calcium AST ALT Alkaline Phosphatase CK-MB (CK-2) CK-MB (CK-2) Rel Index Total Protein Albumin TSH Urine WBC (Auto) Salicylates 02/21/17 02/22/17 02/22/17 22:02 04:52 15:25 WBC RBC Hgb Hct MCV MCH RDW Plt Count Lymph % (Auto) [place] % (Auto) Eos % (Auto) [place] # Seg Neutrophils % Seg Neuts % (Manual) Lymphocytes % (Manual) Seg Neutrophils # Seg Neutrophils # Man Lymphocytes # (Manual) APTT POC ABG pH ABG pH POC ABG pCO2 POC ABG pO2 ABG pO2 ABG HCO3 ABG Base Excess ABG Hemoglobin VBG pH Oxyhemoglobin Sodium Potassium Chloride Carbon Dioxide BUN Creatinine Glucose POC Glucose 246 H 212 H 236 H Lactic Acid Calcium AST ALT Alkaline Phosphatase CK-MB (CK-2) CK-MB (CK-2) Rel Index Total Protein Albumin TSH Urine WBC (Auto) Salicylates 02/22/17 02/23/17 02/23/17 21:33 06:04 10:00 WBC RBC Hgb Hct MCV MCH RDW Plt Count Lymph % (Auto) [place] % (Auto) Eos % (Auto) [place] # Seg Neutrophils % Seg Neuts % (Manual) Lymphocytes % (Manual) Seg Neutrophils # Seg Neutrophils # Man Lymphocytes # (Manual) APTT POC ABG pH ABG pH POC ABG pCO2 POC ABG pO2 ABG pO2 ABG HCO3 ABG Base Excess ABG Hemoglobin VBG pH Oxyhemoglobin Sodium Potassium Chloride Carbon Dioxide BUN Creatinine Glucose POC Glucose 255 H 208 H 174 H Lactic Acid Calcium AST ALT Alkaline Phosphatase CK-MB (CK-2) CK-MB (CK-2) Rel Index Total Protein Albumin TSH Urine WBC (Auto) Salicylates 02/23/17 02/23/17 02/23/17 12:52 17:15 21:51 WBC RBC Hgb Hct MCV MCH RDW Plt Count Lymph % (Auto) [place] % (Auto) Eos % (Auto) [place] # Seg Neutrophils % Seg Neuts % (Manual) Lymphocytes % (Manual) Seg Neutrophils # Seg Neutrophils # Man Lymphocytes # (Manual) APTT POC ABG pH ABG pH POC ABG pCO2 POC ABG pO2 ABG pO2 ABG HCO3 ABG Base Excess ABG Hemoglobin VBG pH Oxyhemoglobin Sodium Potassium Chloride Carbon Dioxide BUN Creatinine Glucose POC Glucose 203 H 269 H 205 H Lactic Acid Calcium AST ALT Alkaline Phosphatase CK-MB (CK-2) CK-MB (CK-2) Rel Index Total Protein Albumin TSH Urine WBC (Auto) Salicylates 02/24/17 02/24/17 02/24/17 10:23 17:45 21:24 WBC RBC Hgb Hct MCV MCH RDW Plt Count Lymph % (Auto) [place] % (Auto) Eos % (Auto) [place] # Seg Neutrophils % Seg Neuts % (Manual) Lymphocytes % (Manual) Seg Neutrophils # Seg Neutrophils # Man Lymphocytes # (Manual) APTT POC ABG pH ABG pH POC ABG pCO2 POC ABG pO2 ABG pO2 ABG HCO3 ABG Base Excess ABG Hemoglobin VBG pH Oxyhemoglobin Sodium Potassium Chloride Carbon Dioxide BUN Creatinine Glucose POC Glucose 280 H 239 H 254 H Lactic Acid Calcium AST ALT Alkaline Phosphatase CK-MB (CK-2) CK-MB (CK-2) Rel Index Total Protein Albumin TSH Urine WBC (Auto) Salicylates 02/25/17 02/25/17 02/25/17 02:12 05:17 14:32 WBC RBC Hgb Hct MCV MCH RDW Plt Count Lymph % (Auto) [place] % (Auto) Eos % (Auto) [place] # Seg Neutrophils % Seg Neuts % (Manual) Lymphocytes % (Manual) Seg Neutrophils # Seg Neutrophils # Man Lymphocytes # (Manual) APTT POC ABG pH ABG pH POC ABG pCO2 POC ABG pO2 ABG pO2 ABG HCO3 ABG Base Excess ABG Hemoglobin VBG pH Oxyhemoglobin Sodium Potassium Chloride Carbon Dioxide BUN Creatinine Glucose POC Glucose 296 H 332 H 353 H Lactic Acid Calcium AST ALT Alkaline Phosphatase CK-MB (CK-2) CK-MB (CK-2) Rel Index Total Protein Albumin TSH Urine WBC (Auto) Salicylates 02/25/17 02/26/17 02/26/17 22:14 00:37 05:52 WBC RBC Hgb Hct MCV MCH RDW Plt Count Lymph % (Auto) [place] % (Auto) Eos % (Auto) [place] # Seg Neutrophils % Seg Neuts % (Manual) Lymphocytes % (Manual) Seg Neutrophils # Seg Neutrophils # Man Lymphocytes # (Manual) APTT POC ABG pH ABG pH POC ABG pCO2 POC ABG pO2 ABG pO2 ABG HCO3 ABG Base Excess ABG Hemoglobin VBG pH Oxyhemoglobin Sodium Potassium Chloride Carbon Dioxide BUN Creatinine Glucose POC Glucose 201 H 233 H 269 H Lactic Acid Calcium AST ALT Alkaline Phosphatase CK-MB (CK-2) CK-MB (CK-2) Rel Index Total Protein Albumin TSH Urine WBC (Auto) Salicylates 02/26/17 02/26/17 02/26/17 11:48 13:49 21:26 WBC RBC Hgb Hct MCV MCH RDW Plt Count Lymph % (Auto) [place] % (Auto) Eos % (Auto) [place] # Seg Neutrophils % Seg Neuts % (Manual) Lymphocytes % (Manual) Seg Neutrophils # Seg Neutrophils # Man Lymphocytes # (Manual) APTT POC ABG pH ABG pH POC ABG pCO2 POC ABG pO2 ABG pO2 ABG HCO3 ABG Base Excess ABG Hemoglobin VBG pH Oxyhemoglobin Sodium Potassium Chloride Carbon Dioxide BUN Creatinine Glucose POC Glucose 333 H 322 H 244 H Lactic Acid Calcium AST ALT Alkaline Phosphatase CK-MB (CK-2) CK-MB (CK-2) Rel Index Total Protein Albumin TSH Urine WBC (Auto) Salicylates 02/27/17 02/27/17 02/27/17 05:27 13:51 21:48 WBC RBC Hgb Hct MCV MCH RDW Plt Count Lymph % (Auto) [place] % (Auto) Eos % (Auto) [place] # Seg Neutrophils % Seg Neuts % (Manual) Lymphocytes % (Manual) Seg Neutrophils # Seg Neutrophils # Man Lymphocytes # (Manual) APTT POC ABG pH ABG pH POC ABG pCO2 POC ABG pO2 ABG pO2 ABG HCO3 ABG Base Excess ABG Hemoglobin VBG pH Oxyhemoglobin Sodium Potassium Chloride Carbon Dioxide BUN Creatinine Glucose POC Glucose 217 H 239 H 254 H Lactic Acid Calcium AST ALT Alkaline Phosphatase CK-MB (CK-2) CK-MB (CK-2) Rel Index Total Protein Albumin TSH Urine WBC (Auto) Salicylates 02/28/17 02/28/17 02/28/17 05:38 11:00 19:44 WBC RBC Hgb Hct MCV MCH RDW Plt Count Lymph % (Auto) [place] % (Auto) Eos % (Auto) [place] # Seg Neutrophils % Seg Neuts % (Manual) Lymphocytes % (Manual) Seg Neutrophils # Seg Neutrophils # Man Lymphocytes # (Manual) APTT POC ABG pH ABG pH POC ABG pCO2 POC ABG pO2 ABG pO2 ABG HCO3 ABG Base Excess ABG Hemoglobin VBG pH Oxyhemoglobin Sodium Potassium Chloride Carbon Dioxide BUN Creatinine Glucose POC Glucose 325 H 203 H 116 H Lactic Acid Calcium AST ALT Alkaline Phosphatase CK-MB (CK-2) CK-MB (CK-2) Rel Index Total Protein Albumin TSH Urine WBC (Auto) Salicylates 03/01/17 03/01/17 03/01/17 00:08 05:31 12:17 WBC RBC Hgb Hct MCV MCH RDW Plt Count Lymph % (Auto) [place] % (Auto) Eos % (Auto) [place] # Seg Neutrophils % Seg Neuts % (Manual) Lymphocytes % (Manual) Seg Neutrophils # Seg Neutrophils # Man Lymphocytes # (Manual) APTT POC ABG pH ABG pH POC ABG pCO2 POC ABG pO2 ABG pO2 ABG HCO3 ABG Base Excess ABG Hemoglobin VBG pH Oxyhemoglobin Sodium Potassium Chloride Carbon Dioxide BUN Creatinine Glucose POC Glucose 202 H 183 H 184 H Lactic Acid Calcium AST ALT Alkaline Phosphatase CK-MB (CK-2) CK-MB (CK-2) Rel Index Total Protein Albumin TSH Urine WBC (Auto) Salicylates 03/02/17 03/02/17 03/02/17 00:12 05:58 18:22 WBC RBC Hgb Hct MCV MCH RDW Plt Count Lymph % (Auto) [place] % (Auto) Eos % (Auto) [place] # Seg Neutrophils % Seg Neuts % (Manual) Lymphocytes % (Manual) Seg Neutrophils # Seg Neutrophils # Man Lymphocytes # (Manual) APTT POC ABG pH ABG pH POC ABG pCO2 POC ABG pO2 ABG pO2 ABG HCO3 ABG Base Excess ABG Hemoglobin VBG pH Oxyhemoglobin Sodium Potassium Chloride Carbon Dioxide BUN Creatinine Glucose POC Glucose 117 H 176 H 156 H Lactic Acid Calcium AST ALT Alkaline Phosphatase CK-MB (CK-2) CK-MB (CK-2) Rel Index Total Protein Albumin TSH Urine WBC (Auto) Salicylates 03/02/17 03/03/17 03/03/17 23:51 05:44 11:32 WBC RBC Hgb Hct MCV MCH RDW Plt Count Lymph % (Auto) [place] % (Auto) Eos % (Auto) [place] # Seg Neutrophils % Seg Neuts % (Manual) Lymphocytes % (Manual) Seg Neutrophils # Seg Neutrophils # Man Lymphocytes # (Manual) APTT POC ABG pH ABG pH POC ABG pCO2 POC ABG pO2 ABG pO2 ABG HCO3 ABG Base Excess ABG Hemoglobin VBG pH Oxyhemoglobin Sodium Potassium Chloride Carbon Dioxide BUN Creatinine Glucose POC Glucose 211 H 117 H 133 H Lactic Acid Calcium AST ALT Alkaline Phosphatase CK-MB (CK-2) CK-MB (CK-2) Rel Index Total Protein Albumin TSH Urine WBC (Auto) Salicylates 03/03/17 03/03/17 03/04/17 17:43 23:17 05:30 WBC RBC Hgb Hct MCV MCH RDW Plt Count Lymph % (Auto) [place] % (Auto) Eos % (Auto) [place] # Seg Neutrophils % Seg Neuts % (Manual) Lymphocytes % (Manual) Seg Neutrophils # Seg Neutrophils # Man Lymphocytes # (Manual) APTT POC ABG pH ABG pH POC ABG pCO2 POC ABG pO2 ABG pO2 ABG HCO3 ABG Base Excess ABG Hemoglobin VBG pH Oxyhemoglobin Sodium Potassium Chloride Carbon Dioxide BUN Creatinine Glucose POC Glucose 206 H 170 H 126 H Lactic Acid Calcium AST ALT Alkaline Phosphatase CK-MB (CK-2) CK-MB (CK-2) Rel Index Total Protein Albumin TSH Urine WBC (Auto) Salicylates 03/04/17 03/04/17 03/05/17 12:17 17:27 05:20 WBC RBC Hgb Hct MCV MCH RDW Plt Count Lymph % (Auto) [place] % (Auto) Eos % (Auto) [place] # Seg Neutrophils % Seg Neuts % (Manual) Lymphocytes % (Manual) Seg Neutrophils # Seg Neutrophils # Man Lymphocytes # (Manual) APTT POC ABG pH ABG pH POC ABG pCO2 POC ABG pO2 ABG pO2 ABG HCO3 ABG Base Excess ABG Hemoglobin VBG pH Oxyhemoglobin Sodium Potassium Chloride Carbon Dioxide BUN Creatinine Glucose POC Glucose 135 H 121 H 185 H Lactic Acid Calcium AST ALT Alkaline Phosphatase CK-MB (CK-2) CK-MB (CK-2) Rel Index Total Protein Albumin TSH Urine WBC (Auto) Salicylates 03/05/17 03/06/17 03/06/17 11:50 11:52 17:34 WBC RBC Hgb Hct MCV MCH RDW Plt Count Lymph % (Auto) [place] % (Auto) Eos % (Auto) [place] # Seg Neutrophils % Seg Neuts % (Manual) Lymphocytes % (Manual) Seg Neutrophils # Seg Neutrophils # Man Lymphocytes # (Manual) APTT POC ABG pH ABG pH POC ABG pCO2 POC ABG pO2 ABG pO2 ABG HCO3 ABG Base Excess ABG Hemoglobin VBG pH Oxyhemoglobin Sodium Potassium Chloride Carbon Dioxide BUN Creatinine Glucose POC Glucose 116 H 133 H 181 H Lactic Acid Calcium AST ALT Alkaline Phosphatase CK-MB (CK-2) CK-MB (CK-2) Rel Index Total Protein Albumin TSH Urine WBC (Auto) Salicylates 03/07/17 03/07/17 03/07/17 05:21 11:36 17:49 WBC RBC Hgb Hct MCV MCH RDW Plt Count Lymph % (Auto) [place] % (Auto) Eos % (Auto) [place] # Seg Neutrophils % Seg Neuts % (Manual) Lymphocytes % (Manual) Seg Neutrophils # Seg Neutrophils # Man Lymphocytes # (Manual) APTT POC ABG pH ABG pH POC ABG pCO2 POC ABG pO2 ABG pO2 ABG HCO3 ABG Base Excess ABG Hemoglobin VBG pH Oxyhemoglobin Sodium Potassium Chloride Carbon Dioxide BUN Creatinine Glucose POC Glucose 159 H 137 H 158 H Lactic Acid Calcium AST ALT Alkaline Phosphatase CK-MB (CK-2) CK-MB (CK-2) Rel Index Total Protein Albumin TSH Urine WBC (Auto) Salicylates 03/08/17 03/08/17 03/08/17 05:51 13:58 23:50 WBC RBC Hgb Hct MCV MCH RDW Plt Count Lymph % (Auto) [place] % (Auto) Eos % (Auto) [place] # Seg Neutrophils % Seg Neuts % (Manual) Lymphocytes % (Manual) Seg Neutrophils # Seg Neutrophils # Man Lymphocytes # (Manual) APTT POC ABG pH ABG pH POC ABG pCO2 POC ABG pO2 ABG pO2 ABG HCO3 ABG Base Excess ABG Hemoglobin VBG pH Oxyhemoglobin Sodium Potassium Chloride Carbon Dioxide BUN Creatinine Glucose POC Glucose 122 H 182 H 114 H Lactic Acid Calcium AST ALT Alkaline Phosphatase CK-MB (CK-2) CK-MB (CK-2) Rel Index Total Protein Albumin TSH Urine WBC (Auto) Salicylates 03/09/17 03/09/17 03/09/17 05:21 05:51 05:51 WBC RBC 3.61 L Hgb 9.5 L Hct 28.3 L MCV 79 L MCH 26 L RDW 17.8 H Plt Count Lymph % (Auto) [place] % (Auto) Eos % (Auto) [place] # Seg Neutrophils % Seg Neuts % (Manual) Lymphocytes % (Manual) Seg Neutrophils # Seg Neutrophils # Man Lymphocytes # (Manual) APTT POC ABG pH ABG pH POC ABG pCO2 POC ABG pO2 ABG pO2 ABG HCO3 ABG Base Excess ABG Hemoglobin VBG pH Oxyhemoglobin Sodium 134 L Potassium Chloride 95.5 L Carbon Dioxide BUN 33 H Creatinine 0.5 L Glucose 143 H POC Glucose 153 H Lactic Acid Calcium AST ALT Alkaline Phosphatase CK-MB (CK-2) CK-MB (CK-2) Rel Index Total Protein Albumin TSH Urine WBC (Auto) Salicylates 03/09/17 03/09/17 03/09/17 12:10 18:13 21:00 WBC RBC Hgb Hct MCV MCH RDW Plt Count Lymph % (Auto) [place] % (Auto) Eos % (Auto) [place] # Seg Neutrophils % Seg Neuts % (Manual) Lymphocytes % (Manual) Seg Neutrophils # Seg Neutrophils # Man Lymphocytes # (Manual) APTT POC ABG pH ABG pH POC ABG pCO2 POC ABG pO2 ABG pO2 ABG HCO3 ABG Base Excess ABG Hemoglobin VBG pH Oxyhemoglobin Sodium Potassium Chloride Carbon Dioxide BUN Creatinine Glucose POC Glucose 203 H 221 H 198 H Lactic Acid Calcium AST ALT Alkaline Phosphatase CK-MB (CK-2) CK-MB (CK-2) Rel Index Total Protein Albumin TSH Urine WBC (Auto) Salicylates 03/09/17 03/10/17 03/10/17 23:58 05:09 05:09 WBC RBC Hgb 10.3 L Hct 30.5 L MCV 78 L MCH 26 L RDW 17.9 H Plt Count Lymph % (Auto) [place] % (Auto) 10.0 H Eos % (Auto) 6.0 H [place] # Seg Neutrophils % Seg Neuts % (Manual) Lymphocytes % (Manual) Seg Neutrophils # Seg Neutrophils # Man Lymphocytes # (Manual) APTT POC ABG pH ABG pH POC ABG pCO2 POC ABG pO2 ABG pO2 ABG HCO3 ABG Base Excess ABG Hemoglobin VBG pH Oxyhemoglobin Sodium 132 L Potassium Chloride 92.2 L Carbon Dioxide BUN 33 H Creatinine 0.5 L Glucose 50 L POC Glucose 167 H Lactic Acid Calcium AST ALT Alkaline Phosphatase CK-MB (CK-2) CK-MB (CK-2) Rel Index Total Protein Albumin TSH Urine WBC (Auto) Salicylates 03/10/17 03/10/17 03/10/17 05:33 05:34 11:48 WBC RBC Hgb Hct MCV MCH RDW Plt Count Lymph % (Auto) [place] % (Auto) Eos % (Auto) [place] # Seg Neutrophils % Seg Neuts % (Manual) Lymphocytes % (Manual) Seg Neutrophils # Seg Neutrophils # Man Lymphocytes # (Manual) APTT POC ABG pH ABG pH POC ABG pCO2 POC ABG pO2 ABG pO2 ABG HCO3 ABG Base Excess ABG Hemoglobin VBG pH Oxyhemoglobin Sodium Potassium Chloride Carbon Dioxide BUN Creatinine Glucose POC Glucose 52 L 53 L 148 H Lactic Acid Calcium AST ALT Alkaline Phosphatase CK-MB (CK-2) CK-MB (CK-2) Rel Index Total Protein Albumin TSH Urine WBC (Auto) Salicylates 03/10/17 03/10/17 03/11/17 17:53 23:47 05:18 WBC RBC Hgb Hct MCV MCH RDW Plt Count Lymph % (Auto) [place] % (Auto) Eos % (Auto) [place] # Seg Neutrophils % Seg Neuts % (Manual) Lymphocytes % (Manual) Seg Neutrophils # Seg Neutrophils # Man Lymphocytes # (Manual) APTT POC ABG pH ABG pH POC ABG pCO2 POC ABG pO2 ABG pO2 ABG HCO3 ABG Base Excess ABG Hemoglobin VBG pH Oxyhemoglobin Sodium Potassium Chloride Carbon Dioxide BUN Creatinine Glucose POC Glucose 189 H 398 H 126 H Lactic Acid Calcium AST ALT Alkaline Phosphatase CK-MB (CK-2) CK-MB (CK-2) Rel Index Total Protein Albumin TSH Urine WBC (Auto) Salicylates 03/11/17 03/11/17 03/11/17 11:53 17:30 23:10 WBC RBC Hgb Hct MCV MCH RDW Plt Count Lymph % (Auto) [place] % (Auto) Eos % (Auto) [place] # Seg Neutrophils % Seg Neuts % (Manual) Lymphocytes % (Manual) Seg Neutrophils # Seg Neutrophils # Man Lymphocytes # (Manual) APTT POC ABG pH ABG pH POC ABG pCO2 POC ABG pO2 ABG pO2 ABG HCO3 ABG Base Excess ABG Hemoglobin VBG pH Oxyhemoglobin Sodium Potassium Chloride Carbon Dioxide BUN Creatinine Glucose POC Glucose 198 H 142 H 244 H Lactic Acid Calcium AST ALT Alkaline Phosphatase CK-MB (CK-2) CK-MB (CK-2) Rel Index Total Protein Albumin TSH Urine WBC (Auto) Salicylates 03/12/17 03/12/17 03/12/17 04:36 11:49 17:23 WBC RBC Hgb Hct MCV MCH RDW Plt Count Lymph % (Auto) [place] % (Auto) Eos % (Auto) [place] # Seg Neutrophils % Seg Neuts % (Manual) Lymphocytes % (Manual) Seg Neutrophils # Seg Neutrophils # Man Lymphocytes # (Manual) APTT POC ABG pH ABG pH POC ABG pCO2 POC ABG pO2 ABG pO2 ABG HCO3 ABG Base Excess ABG Hemoglobin VBG pH Oxyhemoglobin Sodium Potassium Chloride Carbon Dioxide BUN Creatinine Glucose POC Glucose 205 H 197 H 209 H Lactic Acid Calcium AST ALT Alkaline Phosphatase CK-MB (CK-2) CK-MB (CK-2) Rel Index Total Protein Albumin TSH Urine WBC (Auto) Salicylates 03/12/17 03/13/17 03/13/17 23:51 05:32 11:43 WBC RBC Hgb Hct MCV MCH RDW Plt Count Lymph % (Auto) [place] % (Auto) Eos % (Auto) [place] # Seg Neutrophils % Seg Neuts % (Manual) Lymphocytes % (Manual) Seg Neutrophils # Seg Neutrophils # Man Lymphocytes # (Manual) APTT POC ABG pH ABG pH POC ABG pCO2 POC ABG pO2 ABG pO2 ABG HCO3 ABG Base Excess ABG Hemoglobin VBG pH Oxyhemoglobin Sodium Potassium Chloride Carbon Dioxide BUN Creatinine Glucose POC Glucose 210 H 154 H 164 H Lactic Acid Calcium AST ALT Alkaline Phosphatase CK-MB (CK-2) CK-MB (CK-2) Rel Index Total Protein Albumin TSH Urine WBC (Auto) Salicylates 03/13/17 03/13/17 03/14/17 17:11 23:26 05:42 WBC RBC Hgb Hct MCV MCH RDW Plt Count Lymph % (Auto) [place] % (Auto) Eos % (Auto) [place] # Seg Neutrophils % Seg Neuts % (Manual) Lymphocytes % (Manual) Seg Neutrophils # Seg Neutrophils # Man Lymphocytes # (Manual) APTT POC ABG pH ABG pH POC ABG pCO2 POC ABG pO2 ABG pO2 ABG HCO3 ABG Base Excess ABG Hemoglobin VBG pH Oxyhemoglobin Sodium Potassium Chloride Carbon Dioxide BUN Creatinine Glucose POC Glucose 195 H 240 H 230 H Lactic Acid Calcium AST ALT Alkaline Phosphatase CK-MB (CK-2) CK-MB (CK-2) Rel Index Total Protein Albumin TSH Urine WBC (Auto) Salicylates 03/14/17 03/14/17 03/14/17 14:04 17:34 23:42 WBC RBC Hgb Hct MCV MCH RDW Plt Count Lymph % (Auto) [place] % (Auto) Eos % (Auto) [place] # Seg Neutrophils % Seg Neuts % (Manual) Lymphocytes % (Manual) Seg Neutrophils # Seg Neutrophils # Man Lymphocytes # (Manual) APTT POC ABG pH ABG pH POC ABG pCO2 POC ABG pO2 ABG pO2 ABG HCO3 ABG Base Excess ABG Hemoglobin VBG pH Oxyhemoglobin Sodium Potassium Chloride Carbon Dioxide BUN Creatinine Glucose POC Glucose 227 H 186 H 225 H Lactic Acid Calcium AST ALT Alkaline Phosphatase CK-MB (CK-2) CK-MB (CK-2) Rel Index Total Protein Albumin TSH Urine WBC (Auto) Salicylates 03/15/17 03/15/17 03/15/17 05:21 17:13 21:37 WBC RBC Hgb Hct MCV MCH RDW Plt Count Lymph % (Auto) [place] % (Auto) Eos % (Auto) [place] # Seg Neutrophils % Seg Neuts % (Manual) Lymphocytes % (Manual) Seg Neutrophils # Seg Neutrophils # Man Lymphocytes # (Manual) APTT POC ABG pH ABG pH POC ABG pCO2 POC ABG pO2 ABG pO2 ABG HCO3 ABG Base Excess ABG Hemoglobin VBG pH Oxyhemoglobin Sodium Potassium Chloride Carbon Dioxide BUN Creatinine Glucose POC Glucose 244 H 203 H 216 H Lactic Acid Calcium AST ALT Alkaline Phosphatase CK-MB (CK-2) CK-MB (CK-2) Rel Index Total Protein Albumin TSH Urine WBC (Auto) Salicylates 03/16/17 03/16/17 03/16/17 05:52 18:07 21:54 WBC RBC Hgb Hct MCV MCH RDW Plt Count Lymph % (Auto) [place] % (Auto) Eos % (Auto) [place] # Seg Neutrophils % Seg Neuts % (Manual) Lymphocytes % (Manual) Seg Neutrophils # Seg Neutrophils # Man Lymphocytes # (Manual) APTT POC ABG pH ABG pH POC ABG pCO2 POC ABG pO2 ABG pO2 ABG HCO3 ABG Base Excess ABG Hemoglobin VBG pH Oxyhemoglobin Sodium Potassium Chloride Carbon Dioxide BUN Creatinine Glucose POC Glucose 248 H 254 H 244 H Lactic Acid Calcium AST ALT Alkaline Phosphatase CK-MB (CK-2) CK-MB (CK-2) Rel Index Total Protein Albumin TSH Urine WBC (Auto) Salicylates 03/17/17 03/17/17 03/17/17 07:07 07:42 07:43 WBC RBC Hgb 9.7 L Hct 29.1 L MCV 78 L MCH 26 L RDW 17.4 H Plt Count Lymph % (Auto) [place] % (Auto) Eos % (Auto) [place] # Seg Neutrophils % Seg Neuts % (Manual) Lymphocytes % (Manual) Seg Neutrophils # Seg Neutrophils # Man Lymphocytes # (Manual) APTT POC ABG pH ABG pH POC ABG pCO2 POC ABG pO2 ABG pO2 ABG HCO3 ABG Base Excess ABG Hemoglobin VBG pH Oxyhemoglobin Sodium Potassium Chloride 96.6 L Carbon Dioxide BUN 30 H Creatinine 0.5 L Glucose 251 H POC Glucose 222 H Lactic Acid Calcium AST ALT Alkaline Phosphatase CK-MB (CK-2) CK-MB (CK-2) Rel Index Total Protein Albumin TSH Urine WBC (Auto) Salicylates 03/17/17 03/17/17 03/18/17 14:08 21:20 14:24 WBC RBC Hgb Hct MCV MCH RDW Plt Count Lymph % (Auto) [place] % (Auto) Eos % (Auto) [place] # Seg Neutrophils % Seg Neuts % (Manual) Lymphocytes % (Manual) Seg Neutrophils # Seg Neutrophils # Man Lymphocytes # (Manual) APTT POC ABG pH ABG pH POC ABG pCO2 POC ABG pO2 ABG pO2 ABG HCO3 ABG Base Excess ABG Hemoglobin VBG pH Oxyhemoglobin Sodium Potassium Chloride Carbon Dioxide BUN Creatinine Glucose POC Glucose 281 H 239 H 195 H Lactic Acid Calcium AST ALT Alkaline Phosphatase CK-MB (CK-2) CK-MB (CK-2) Rel Index Total Protein Albumin TSH Urine WBC (Auto) Salicylates 03/18/17 03/19/17 03/19/17 21:37 04:57 14:23 WBC RBC Hgb Hct MCV MCH RDW Plt Count Lymph % (Auto) [place] % (Auto) Eos % (Auto) [place] # Seg Neutrophils % Seg Neuts % (Manual) Lymphocytes % (Manual) Seg Neutrophils # Seg Neutrophils # Man Lymphocytes # (Manual) APTT POC ABG pH ABG pH POC ABG pCO2 POC ABG pO2 ABG pO2 ABG HCO3 ABG Base Excess ABG Hemoglobin VBG pH Oxyhemoglobin Sodium Potassium Chloride Carbon Dioxide BUN Creatinine Glucose POC Glucose 227 H 205 H 277 H Lactic Acid Calcium AST ALT Alkaline Phosphatase CK-MB (CK-2) CK-MB (CK-2) Rel Index Total Protein Albumin TSH Urine WBC (Auto) Salicylates 03/19/17 03/19/17 03/20/17 20:31 21:47 04:55 WBC RBC Hgb Hct MCV MCH RDW Plt Count Lymph % (Auto) [place] % (Auto) Eos % (Auto) [place] # Seg Neutrophils % Seg Neuts % (Manual) Lymphocytes % (Manual) Seg Neutrophils # Seg Neutrophils # Man Lymphocytes # (Manual) APTT POC ABG pH ABG pH POC ABG pCO2 POC ABG pO2 ABG pO2 ABG HCO3 ABG Base Excess ABG Hemoglobin VBG pH Oxyhemoglobin Sodium Potassium Chloride Carbon Dioxide BUN Creatinine Glucose POC Glucose 256 H 270 H 202 H Lactic Acid Calcium AST ALT Alkaline Phosphatase CK-MB (CK-2) CK-MB (CK-2) Rel Index Total Protein Albumin TSH Urine WBC (Auto) Salicylates 03/20/17 03/20/17 03/21/17 14:09 21:40 05:09 WBC RBC Hgb Hct MCV MCH RDW Plt Count Lymph % (Auto) [place] % (Auto) Eos % (Auto) [place] # Seg Neutrophils % Seg Neuts % (Manual) Lymphocytes % (Manual) Seg Neutrophils # Seg Neutrophils # Man Lymphocytes # (Manual) APTT POC ABG pH ABG pH POC ABG pCO2 POC ABG pO2 ABG pO2 ABG HCO3 ABG Base Excess ABG Hemoglobin VBG pH Oxyhemoglobin Sodium Potassium Chloride Carbon Dioxide BUN Creatinine Glucose POC Glucose 200 H 214 H 233 H Lactic Acid Calcium AST ALT Alkaline Phosphatase CK-MB (CK-2) CK-MB (CK-2) Rel Index Total Protein Albumin TSH Urine WBC (Auto) Salicylates 03/21/17 03/21/17 03/22/17 14:06 21:26 05:43 WBC RBC Hgb Hct MCV MCH RDW Plt Count Lymph % (Auto) [place] % (Auto) Eos % (Auto) [place] # Seg Neutrophils % Seg Neuts % (Manual) Lymphocytes % (Manual) Seg Neutrophils # Seg Neutrophils # Man Lymphocytes # (Manual) APTT POC ABG pH ABG pH POC ABG pCO2 POC ABG pO2 ABG pO2 ABG HCO3 ABG Base Excess ABG Hemoglobin VBG pH Oxyhemoglobin Sodium Potassium Chloride Carbon Dioxide BUN Creatinine Glucose POC Glucose 250 H 155 H 251 H Lactic Acid Calcium AST ALT Alkaline Phosphatase CK-MB (CK-2) CK-MB (CK-2) Rel Index Total Protein Albumin TSH Urine WBC (Auto) Salicylates 03/22/17 03/22/17 03/23/17 13:46 21:16 00:23 WBC RBC Hgb Hct MCV MCH RDW Plt Count Lymph % (Auto) [place] % (Auto) Eos % (Auto) [place] # Seg Neutrophils % Seg Neuts % (Manual) Lymphocytes % (Manual) Seg Neutrophils # Seg Neutrophils # Man Lymphocytes # (Manual) APTT POC ABG pH ABG pH POC ABG pCO2 POC ABG pO2 ABG pO2 ABG HCO3 ABG Base Excess ABG Hemoglobin VBG pH Oxyhemoglobin Sodium Potassium Chloride Carbon Dioxide BUN Creatinine Glucose POC Glucose 269 H 197 H 126 H Lactic Acid Calcium AST ALT Alkaline Phosphatase CK-MB (CK-2) CK-MB (CK-2) Rel Index Total Protein Albumin TSH Urine WBC (Auto) Salicylates 03/23/17 03/23/17 03/23/17 05:39 14:06 21:39 WBC RBC Hgb Hct MCV MCH RDW Plt Count Lymph % (Auto) [place] % (Auto) Eos % (Auto) [place] # Seg Neutrophils % Seg Neuts % (Manual) Lymphocytes % (Manual) Seg Neutrophils # Seg Neutrophils # Man Lymphocytes # (Manual) APTT POC ABG pH ABG pH POC ABG pCO2 POC ABG pO2 ABG pO2 ABG HCO3 ABG Base Excess ABG Hemoglobin VBG pH Oxyhemoglobin Sodium Potassium Chloride Carbon Dioxide BUN Creatinine Glucose POC Glucose 234 H 241 H 248 H Lactic Acid Calcium AST ALT Alkaline Phosphatase CK-MB (CK-2) CK-MB (CK-2) Rel Index Total Protein Albumin TSH Urine WBC (Auto) Salicylates 03/24/17 03/24/17 03/25/17 05:06 21:46 05:38 WBC RBC Hgb Hct MCV MCH RDW Plt Count Lymph % (Auto) [place] % (Auto) Eos % (Auto) [place] # Seg Neutrophils % Seg Neuts % (Manual) Lymphocytes % (Manual) Seg Neutrophils # Seg Neutrophils # Man Lymphocytes # (Manual) APTT POC ABG pH ABG pH POC ABG pCO2 POC ABG pO2 ABG pO2 ABG HCO3 ABG Base Excess ABG Hemoglobin VBG pH Oxyhemoglobin Sodium Potassium Chloride Carbon Dioxide BUN Creatinine Glucose POC Glucose 232 H 276 H 242 H Lactic Acid Calcium AST ALT Alkaline Phosphatase CK-MB (CK-2) CK-MB (CK-2) Rel Index Total Protein Albumin TSH Urine WBC (Auto) Salicylates 03/25/17 03/25/17 03/26/17 14:30 23:14 13:53 WBC RBC Hgb Hct MCV MCH RDW Plt Count Lymph % (Auto) [place] % (Auto) Eos % (Auto) [place] # Seg Neutrophils % Seg Neuts % (Manual) Lymphocytes % (Manual) Seg Neutrophils # Seg Neutrophils # Man Lymphocytes # (Manual) APTT POC ABG pH ABG pH POC ABG pCO2 POC ABG pO2 ABG pO2 ABG HCO3 ABG Base Excess ABG Hemoglobin VBG pH Oxyhemoglobin Sodium Potassium Chloride Carbon Dioxide BUN Creatinine Glucose POC Glucose 246 H 208 H 195 H Lactic Acid Calcium AST ALT Alkaline Phosphatase CK-MB (CK-2) CK-MB (CK-2) Rel Index Total Protein Albumin TSH Urine WBC (Auto) Salicylates 03/26/17 03/27/17 03/27/17 21:58 05:18 14:57 WBC RBC Hgb Hct MCV MCH RDW Plt Count Lymph % (Auto) [place] % (Auto) Eos % (Auto) [place] # Seg Neutrophils % Seg Neuts % (Manual) Lymphocytes % (Manual) Seg Neutrophils # Seg Neutrophils # Man Lymphocytes # (Manual) APTT POC ABG pH ABG pH POC ABG pCO2 POC ABG pO2 ABG pO2 ABG HCO3 ABG Base Excess ABG Hemoglobin VBG pH Oxyhemoglobin Sodium Potassium Chloride Carbon Dioxide BUN Creatinine Glucose POC Glucose 241 H 199 H 269 H Lactic Acid Calcium AST ALT Alkaline Phosphatase CK-MB (CK-2) CK-MB (CK-2) Rel Index Total Protein Albumin TSH Urine WBC (Auto) Salicylates 03/27/17 03/28/17 03/28/17 21:33 13:52 21:29 WBC RBC Hgb Hct MCV MCH RDW Plt Count Lymph % (Auto) [place] % (Auto) Eos % (Auto) [place] # Seg Neutrophils % Seg Neuts % (Manual) Lymphocytes % (Manual) Seg Neutrophils # Seg Neutrophils # Man Lymphocytes # (Manual) APTT POC ABG pH ABG pH POC ABG pCO2 POC ABG pO2 ABG pO2 ABG HCO3 ABG Base Excess ABG Hemoglobin VBG pH Oxyhemoglobin Sodium Potassium Chloride Carbon Dioxide BUN Creatinine Glucose POC Glucose 214 H 243 H 286 H Lactic Acid Calcium AST ALT Alkaline Phosphatase CK-MB (CK-2) CK-MB (CK-2) Rel Index Total Protein Albumin TSH Urine WBC (Auto) Salicylates 03/29/17 03/29/17 03/29/17 04:32 04:32 13:58 WBC RBC Hgb 10.6 L Hct 32.9 L MCV 78 L MCH 25 L RDW 17.6 H Plt Count Lymph % (Auto) 38.0 H [place] % (Auto) 9.7 H Eos % (Auto) [place] # Seg Neutrophils % Seg Neuts % (Manual) Lymphocytes % (Manual) Seg Neutrophils # Seg Neutrophils # Man Lymphocytes # (Manual) APTT POC ABG pH ABG pH POC ABG pCO2 POC ABG pO2 ABG pO2 ABG HCO3 ABG Base Excess ABG Hemoglobin VBG pH Oxyhemoglobin Sodium 132 L Potassium Chloride 94.0 L Carbon Dioxide BUN 28 H Creatinine 0.5 L Glucose 236 H POC Glucose 171 H Lactic Acid Calcium AST ALT 71 H Alkaline Phosphatase 391 H CK-MB (CK-2) CK-MB (CK-2) Rel Index Total Protein 8.3 H Albumin 2.9 L TSH Urine WBC (Auto) Salicylates 03/29/17 03/30/17 03/30/17 20:59 06:07 11:52 WBC RBC Hgb Hct MCV MCH RDW Plt Count Lymph % (Auto) [place] % (Auto) Eos % (Auto) [place] # Seg Neutrophils % Seg Neuts % (Manual) Lymphocytes % (Manual) Seg Neutrophils # Seg Neutrophils # Man Lymphocytes # (Manual) APTT POC ABG pH ABG pH POC ABG pCO2 POC ABG pO2 ABG pO2 ABG HCO3 ABG Base Excess ABG Hemoglobin VBG pH Oxyhemoglobin Sodium Potassium Chloride Carbon Dioxide BUN Creatinine Glucose POC Glucose 215 H 259 H 197 H Lactic Acid Calcium AST ALT Alkaline Phosphatase CK-MB (CK-2) CK-MB (CK-2) Rel Index Total Protein Albumin TSH Urine WBC (Auto) Salicylates 03/30/17 03/31/17 03/31/17 21:34 05:42 14:34 WBC RBC Hgb Hct MCV MCH RDW Plt Count Lymph % (Auto) [place] % (Auto) Eos % (Auto) [place] # Seg Neutrophils % Seg Neuts % (Manual) Lymphocytes % (Manual) Seg Neutrophils # Seg Neutrophils # Man Lymphocytes # (Manual) APTT POC ABG pH ABG pH POC ABG pCO2 POC ABG pO2 ABG pO2 ABG HCO3 ABG Base Excess ABG Hemoglobin VBG pH Oxyhemoglobin Sodium Potassium Chloride Carbon Dioxide BUN Creatinine Glucose POC Glucose 207 H 184 H 213 H Lactic Acid Calcium AST ALT Alkaline Phosphatase CK-MB (CK-2) CK-MB (CK-2) Rel Index Total Protein Albumin TSH Urine WBC (Auto) Salicylates 03/31/17 04/01/17 04/01/17 21:32 05:53 13:48 WBC RBC Hgb Hct MCV MCH RDW Plt Count Lymph % (Auto) [place] % (Auto) Eos % (Auto) [place] # Seg Neutrophils % Seg Neuts % (Manual) Lymphocytes % (Manual) Seg Neutrophils # Seg Neutrophils # Man Lymphocytes # (Manual) APTT POC ABG pH ABG pH POC ABG pCO2 POC ABG pO2 ABG pO2 ABG HCO3 ABG Base Excess ABG Hemoglobin VBG pH Oxyhemoglobin Sodium Potassium Chloride Carbon Dioxide BUN Creatinine Glucose POC Glucose 249 H 225 H 256 H Lactic Acid Calcium AST ALT Alkaline Phosphatase CK-MB (CK-2) CK-MB (CK-2) Rel Index Total Protein Albumin TSH Urine WBC (Auto) Salicylates 04/01/17 04/02/17 04/02/17 21:34 05:32 14:05 WBC RBC Hgb Hct MCV MCH RDW Plt Count Lymph % (Auto) [place] % (Auto) Eos % (Auto) [place] # Seg Neutrophils % Seg Neuts % (Manual) Lymphocytes % (Manual) Seg Neutrophils # Seg Neutrophils # Man Lymphocytes # (Manual) APTT POC ABG pH ABG pH POC ABG pCO2 POC ABG pO2 ABG pO2 ABG HCO3 ABG Base Excess ABG Hemoglobin VBG pH Oxyhemoglobin Sodium Potassium Chloride Carbon Dioxide BUN Creatinine Glucose POC Glucose 292 H 220 H 187 H Lactic Acid Calcium AST ALT Alkaline Phosphatase CK-MB (CK-2) CK-MB (CK-2) Rel Index Total Protein Albumin TSH Urine WBC (Auto) Salicylates 04/02/17 04/03/17 04/03/17 21:57 04:49 14:12 WBC RBC Hgb Hct MCV MCH RDW Plt Count Lymph % (Auto) [place] % (Auto) Eos % (Auto) [place] # Seg Neutrophils % Seg Neuts % (Manual) Lymphocytes % (Manual) Seg Neutrophils # Seg Neutrophils # Man Lymphocytes # (Manual) APTT POC ABG pH ABG pH POC ABG pCO2 POC ABG pO2 ABG pO2 ABG HCO3 ABG Base Excess ABG Hemoglobin VBG pH Oxyhemoglobin Sodium Potassium Chloride Carbon Dioxide BUN Creatinine Glucose POC Glucose 285 H 256 H 197 H Lactic Acid Calcium AST ALT Alkaline Phosphatase CK-MB (CK-2) CK-MB (CK-2) Rel Index Total Protein Albumin TSH Urine WBC (Auto) Salicylates 04/03/17 04/04/17 04/04/17 21:11 05:20 13:18 WBC RBC Hgb Hct MCV MCH RDW Plt Count Lymph % (Auto) [place] % (Auto) Eos % (Auto) [place] # Seg Neutrophils % Seg Neuts % (Manual) Lymphocytes % (Manual) Seg Neutrophils # Seg Neutrophils # Man Lymphocytes # (Manual) APTT POC ABG pH ABG pH POC ABG pCO2 POC ABG pO2 ABG pO2 ABG HCO3 ABG Base Excess ABG Hemoglobin VBG pH Oxyhemoglobin Sodium Potassium Chloride Carbon Dioxide BUN Creatinine Glucose POC Glucose 166 H 228 H 252 H Lactic Acid Calcium AST ALT Alkaline Phosphatase CK-MB (CK-2) CK-MB (CK-2) Rel Index Total Protein Albumin TSH Urine WBC (Auto) Salicylates 04/04/17 04/05/17 04/05/17 21:51 06:14 09:54 WBC RBC Hgb Hct MCV MCH RDW Plt Count Lymph % (Auto) [place] % (Auto) Eos % (Auto) [place] # Seg Neutrophils % Seg Neuts % (Manual) Lymphocytes % (Manual) Seg Neutrophils # Seg Neutrophils # Man Lymphocytes # (Manual) APTT POC ABG pH ABG pH POC ABG pCO2 POC ABG pO2 ABG pO2 ABG HCO3 ABG Base Excess ABG Hemoglobin VBG pH Oxyhemoglobin Sodium Potassium Chloride Carbon Dioxide BUN Creatinine Glucose POC Glucose 252 H 152 H 181 H Lactic Acid Calcium AST ALT Alkaline Phosphatase CK-MB (CK-2) CK-MB (CK-2) Rel Index Total Protein Albumin TSH Urine WBC (Auto) Salicylates 04/05/17 04/05/17 04/05/17 14:49 17:34 21:38 WBC RBC Hgb Hct MCV MCH RDW Plt Count Lymph % (Auto) [place] % (Auto) Eos % (Auto) [place] # Seg Neutrophils % Seg Neuts % (Manual) Lymphocytes % (Manual) Seg Neutrophils # Seg Neutrophils # Man Lymphocytes # (Manual) APTT POC ABG pH ABG pH POC ABG pCO2 POC ABG pO2 ABG pO2 ABG HCO3 ABG Base Excess ABG Hemoglobin VBG pH Oxyhemoglobin Sodium Potassium Chloride Carbon Dioxide BUN Creatinine Glucose POC Glucose 219 H 268 H 278 H Lactic Acid Calcium AST ALT Alkaline Phosphatase CK-MB (CK-2) CK-MB (CK-2) Rel Index Total Protein Albumin TSH Urine WBC (Auto) Salicylates 04/06/17 04/06/17 04/07/17 15:04 22:14 05:09 WBC RBC Hgb Hct MCV MCH RDW Plt Count Lymph % (Auto) [place] % (Auto) Eos % (Auto) [place] # Seg Neutrophils % Seg Neuts % (Manual) Lymphocytes % (Manual) Seg Neutrophils # Seg Neutrophils # Man Lymphocytes # (Manual) APTT POC ABG pH ABG pH POC ABG pCO2 POC ABG pO2 ABG pO2 ABG HCO3 ABG Base Excess ABG Hemoglobin VBG pH Oxyhemoglobin Sodium Potassium Chloride Carbon Dioxide BUN Creatinine Glucose POC Glucose 285 H 106 H 334 H Lactic Acid Calcium AST ALT Alkaline Phosphatase CK-MB (CK-2) CK-MB (CK-2) Rel Index Total Protein Albumin TSH Urine WBC (Auto) Salicylates 04/07/17 04/07/17 04/08/17 14:45 21:48 05:28 WBC RBC Hgb Hct MCV MCH RDW Plt Count Lymph % (Auto) [place] % (Auto) Eos % (Auto) [place] # Seg Neutrophils % Seg Neuts % (Manual) Lymphocytes % (Manual) Seg Neutrophils # Seg Neutrophils # Man Lymphocytes # (Manual) APTT POC ABG pH ABG pH POC ABG pCO2 POC ABG pO2 ABG pO2 ABG HCO3 ABG Base Excess ABG Hemoglobin VBG pH Oxyhemoglobin Sodium Potassium Chloride Carbon Dioxide BUN Creatinine Glucose POC Glucose 173 H 304 H 314 H Lactic Acid Calcium AST ALT Alkaline Phosphatase CK-MB (CK-2) CK-MB (CK-2) Rel Index Total Protein Albumin TSH Urine WBC (Auto) Salicylates 04/08/17 04/08/17 04/08/17 15:57 16:17 22:21 WBC RBC Hgb Hct MCV MCH RDW Plt Count Lymph % (Auto) [place] % (Auto) Eos % (Auto) [place] # Seg Neutrophils % Seg Neuts % (Manual) Lymphocytes % (Manual) Seg Neutrophils # Seg Neutrophils # Man Lymphocytes # (Manual) APTT POC ABG pH ABG pH POC ABG pCO2 POC ABG pO2 ABG pO2 ABG HCO3 ABG Base Excess ABG Hemoglobin VBG pH Oxyhemoglobin Sodium Potassium Chloride Carbon Dioxide BUN Creatinine Glucose POC Glucose 356 H 337 H 323 H Lactic Acid Calcium AST ALT Alkaline Phosphatase CK-MB (CK-2) CK-MB (CK-2) Rel Index Total Protein Albumin TSH Urine WBC (Auto) Salicylates 04/09/17 04/09/17 04/09/17 06:19 15:30 21:52 WBC RBC Hgb Hct MCV MCH RDW Plt Count Lymph % (Auto) [place] % (Auto) Eos % (Auto) [place] # Seg Neutrophils % Seg Neuts % (Manual) Lymphocytes % (Manual) Seg Neutrophils # Seg Neutrophils # Man Lymphocytes # (Manual) APTT POC ABG pH ABG pH POC ABG pCO2 POC ABG pO2 ABG pO2 ABG HCO3 ABG Base Excess ABG Hemoglobin VBG pH Oxyhemoglobin Sodium Potassium Chloride Carbon Dioxide BUN Creatinine Glucose POC Glucose 340 H 332 H 341 H Lactic Acid Calcium AST ALT Alkaline Phosphatase CK-MB (CK-2) CK-MB (CK-2) Rel Index Total Protein Albumin TSH Urine WBC (Auto) Salicylates 04/10/17 04/10/17 04/10/17 01:53 05:33 17:40 WBC RBC Hgb Hct MCV MCH RDW Plt Count Lymph % (Auto) [place] % (Auto) Eos % (Auto) [place] # Seg Neutrophils % Seg Neuts % (Manual) Lymphocytes % (Manual) Seg Neutrophils # Seg Neutrophils # Man Lymphocytes # (Manual) APTT POC ABG pH ABG pH POC ABG pCO2 POC ABG pO2 ABG pO2 ABG HCO3 ABG Base Excess ABG Hemoglobin VBG pH Oxyhemoglobin Sodium Potassium Chloride Carbon Dioxide BUN Creatinine Glucose POC Glucose 261 H 277 H 304 H Lactic Acid Calcium AST ALT Alkaline Phosphatase CK-MB (CK-2) CK-MB (CK-2) Rel Index Total Protein Albumin TSH Urine WBC (Auto) Salicylates 04/10/17 04/11/17 04/11/17 21:29 05:28 14:02 WBC RBC Hgb Hct MCV MCH RDW Plt Count Lymph % (Auto) [place] % (Auto) Eos % (Auto) [place] # Seg Neutrophils % Seg Neuts % (Manual) Lymphocytes % (Manual) Seg Neutrophils # Seg Neutrophils # Man Lymphocytes # (Manual) APTT POC ABG pH ABG pH POC ABG pCO2 POC ABG pO2 ABG pO2 ABG HCO3 ABG Base Excess ABG Hemoglobin VBG pH Oxyhemoglobin Sodium Potassium Chloride Carbon Dioxide BUN Creatinine Glucose POC Glucose 361 H 204 H 236 H Lactic Acid Calcium AST ALT Alkaline Phosphatase CK-MB (CK-2) CK-MB (CK-2) Rel Index Total Protein Albumin TSH Urine WBC (Auto) Salicylates 04/11/17 04/12/17 04/12/17 21:43 05:00 11:53 WBC RBC Hgb Hct MCV MCH RDW Plt Count Lymph % (Auto) [place] % (Auto) Eos % (Auto) [place] # Seg Neutrophils % Seg Neuts % (Manual) Lymphocytes % (Manual) Seg Neutrophils # Seg Neutrophils # Man Lymphocytes # (Manual) APTT POC ABG pH ABG pH POC ABG pCO2 POC ABG pO2 ABG pO2 ABG HCO3 ABG Base Excess ABG Hemoglobin VBG pH Oxyhemoglobin Sodium Potassium Chloride Carbon Dioxide BUN Creatinine Glucose POC Glucose 287 H 294 H 265 H Lactic Acid Calcium AST ALT Alkaline Phosphatase CK-MB (CK-2) CK-MB (CK-2) Rel Index Total Protein Albumin TSH Urine WBC (Auto) Salicylates 04/12/17 04/12/17 04/13/17 21:21 23:44 06:05 WBC RBC Hgb Hct MCV MCH RDW Plt Count Lymph % (Auto) [place] % (Auto) Eos % (Auto) [place] # Seg Neutrophils % Seg Neuts % (Manual) Lymphocytes % (Manual) Seg Neutrophils # Seg Neutrophils # Man Lymphocytes # (Manual) APTT POC ABG pH ABG pH POC ABG pCO2 POC ABG pO2 ABG pO2 ABG HCO3 ABG Base Excess ABG Hemoglobin VBG pH Oxyhemoglobin Sodium Potassium Chloride Carbon Dioxide BUN Creatinine Glucose POC Glucose 289 H 348 H 326 H Lactic Acid Calcium AST ALT Alkaline Phosphatase CK-MB (CK-2) CK-MB (CK-2) Rel Index Total Protein Albumin TSH Urine WBC (Auto) Salicylates 04/13/17 04/13/17 04/14/17 13:54 21:15 05:49 WBC RBC Hgb Hct MCV MCH RDW Plt Count Lymph % (Auto) [place] % (Auto) Eos % (Auto) [place] # Seg Neutrophils % Seg Neuts % (Manual) Lymphocytes % (Manual) Seg Neutrophils # Seg Neutrophils # Man Lymphocytes # (Manual) APTT POC ABG pH ABG pH POC ABG pCO2 POC ABG pO2 ABG pO2 ABG HCO3 ABG Base Excess ABG Hemoglobin VBG pH Oxyhemoglobin Sodium Potassium Chloride Carbon Dioxide BUN Creatinine Glucose POC Glucose 326 H 263 H 319 H Lactic Acid Calcium AST ALT Alkaline Phosphatase CK-MB (CK-2) CK-MB (CK-2) Rel Index Total Protein Albumin TSH Urine WBC (Auto) Salicylates 04/14/17 04/14/17 04/15/17 13:26 23:13 14:24 WBC RBC Hgb Hct MCV MCH RDW Plt Count Lymph % (Auto) [place] % (Auto) Eos % (Auto) [place] # Seg Neutrophils % Seg Neuts % (Manual) Lymphocytes % (Manual) Seg Neutrophils # Seg Neutrophils # Man Lymphocytes # (Manual) APTT POC ABG pH ABG pH POC ABG pCO2 POC ABG pO2 ABG pO2 ABG HCO3 ABG Base Excess ABG Hemoglobin VBG pH Oxyhemoglobin Sodium Potassium Chloride Carbon Dioxide BUN Creatinine Glucose POC Glucose 207 H 365 H 308 H Lactic Acid Calcium AST ALT Alkaline Phosphatase CK-MB (CK-2) CK-MB (CK-2) Rel Index Total Protein Albumin TSH Urine WBC (Auto) Salicylates 04/15/17 04/15/17 04/15/17 21:00 22:18 23:12 WBC RBC Hgb Hct MCV MCH RDW Plt Count Lymph % (Auto) [place] % (Auto) Eos % (Auto) [place] # Seg Neutrophils % Seg Neuts % (Manual) Lymphocytes % (Manual) Seg Neutrophils # Seg Neutrophils # Man Lymphocytes # (Manual) APTT POC ABG pH ABG pH POC ABG pCO2 POC ABG pO2 ABG pO2 ABG HCO3 ABG Base Excess ABG Hemoglobin VBG pH Oxyhemoglobin Sodium Potassium Chloride Carbon Dioxide BUN Creatinine Glucose POC Glucose 407 H 287 H 325 H Lactic Acid Calcium AST ALT Alkaline Phosphatase CK-MB (CK-2) CK-MB (CK-2) Rel Index Total Protein Albumin TSH Urine WBC (Auto) Salicylates 04/16/17 04/16/17 04/16/17 05:30 10:07 14:26 WBC RBC Hgb Hct MCV MCH RDW Plt Count Lymph % (Auto) [place] % (Auto) Eos % (Auto) [place] # Seg Neutrophils % Seg Neuts % (Manual) Lymphocytes % (Manual) Seg Neutrophils # Seg Neutrophils # Man Lymphocytes # (Manual) APTT POC ABG pH ABG pH POC ABG pCO2 POC ABG pO2 ABG pO2 ABG HCO3 ABG Base Excess ABG Hemoglobin VBG pH Oxyhemoglobin Sodium Potassium Chloride Carbon Dioxide BUN Creatinine Glucose POC Glucose 304 H 217 H 344 H Lactic Acid Calcium AST ALT Alkaline Phosphatase CK-MB (CK-2) CK-MB (CK-2) Rel Index Total Protein Albumin TSH Urine WBC (Auto) Salicylates 04/16/17 04/17/17 04/17/17 21:25 05:12 14:19 WBC RBC Hgb Hct MCV MCH RDW Plt Count Lymph % (Auto) [place] % (Auto) Eos % (Auto) [place] # Seg Neutrophils % Seg Neuts % (Manual) Lymphocytes % (Manual) Seg Neutrophils # Seg Neutrophils # Man Lymphocytes # (Manual) APTT POC ABG pH ABG pH POC ABG pCO2 POC ABG pO2 ABG pO2 ABG HCO3 ABG Base Excess ABG Hemoglobin VBG pH Oxyhemoglobin Sodium Potassium Chloride Carbon Dioxide BUN Creatinine Glucose POC Glucose 305 H 233 H 324 H Lactic Acid Calcium AST ALT Alkaline Phosphatase CK-MB (CK-2) CK-MB (CK-2) Rel Index Total Protein Albumin TSH Urine WBC (Auto) Salicylates 04/17/17 04/18/17 04/18/17 21:42 06:21 14:08 WBC RBC Hgb Hct MCV MCH RDW Plt Count Lymph % (Auto) [place] % (Auto) Eos % (Auto) [place] # Seg Neutrophils % Seg Neuts % (Manual) Lymphocytes % (Manual) Seg Neutrophils # Seg Neutrophils # Man Lymphocytes # (Manual) APTT POC ABG pH ABG pH POC ABG pCO2 POC ABG pO2 ABG pO2 ABG HCO3 ABG Base Excess ABG Hemoglobin VBG pH Oxyhemoglobin Sodium Potassium Chloride Carbon Dioxide BUN Creatinine Glucose POC Glucose 270 H 308 H 290 H Lactic Acid Calcium AST ALT Alkaline Phosphatase CK-MB (CK-2) CK-MB (CK-2) Rel Index Total Protein Albumin TSH Urine WBC (Auto) Salicylates 04/18/17 04/19/17 04/19/17 21:50 05:20 13:59 WBC RBC Hgb Hct MCV MCH RDW Plt Count Lymph % (Auto) [place] % (Auto) Eos % (Auto) [place] # Seg Neutrophils % Seg Neuts % (Manual) Lymphocytes % (Manual) Seg Neutrophils # Seg Neutrophils # Man Lymphocytes # (Manual) APTT POC ABG pH ABG pH POC ABG pCO2 POC ABG pO2 ABG pO2 ABG HCO3 ABG Base Excess ABG Hemoglobin VBG pH Oxyhemoglobin Sodium Potassium Chloride Carbon Dioxide BUN Creatinine Glucose POC Glucose 167 H 372 H 321 H Lactic Acid Calcium AST ALT Alkaline Phosphatase CK-MB (CK-2) CK-MB (CK-2) Rel Index Total Protein Albumin TSH Urine WBC (Auto) Salicylates 04/19/17 04/20/17 04/20/17 21:16 14:18 21:34 WBC RBC Hgb Hct MCV MCH RDW Plt Count Lymph % (Auto) [place] % (Auto) Eos % (Auto) [place] # Seg Neutrophils % Seg Neuts % (Manual) Lymphocytes % (Manual) Seg Neutrophils # Seg Neutrophils # Man Lymphocytes # (Manual) APTT POC ABG pH ABG pH POC ABG pCO2 POC ABG pO2 ABG pO2 ABG HCO3 ABG Base Excess ABG Hemoglobin VBG pH Oxyhemoglobin Sodium Potassium Chloride Carbon Dioxide BUN Creatinine Glucose POC Glucose 182 H 218 H 121 H Lactic Acid Calcium AST ALT Alkaline Phosphatase CK-MB (CK-2) CK-MB (CK-2) Rel Index Total Protein Albumin TSH Urine WBC (Auto) Salicylates 04/21/17 04/21/17 04/21/17 00:08 05:16 12:41 WBC RBC Hgb Hct MCV MCH RDW Plt Count Lymph % (Auto) [place] % (Auto) Eos % (Auto) [place] # Seg Neutrophils % Seg Neuts % (Manual) Lymphocytes % (Manual) Seg Neutrophils # Seg Neutrophils # Man Lymphocytes # (Manual) APTT POC ABG pH ABG pH POC ABG pCO2 POC ABG pO2 ABG pO2 ABG HCO3 ABG Base Excess ABG Hemoglobin VBG pH Oxyhemoglobin Sodium Potassium Chloride Carbon Dioxide BUN Creatinine Glucose POC Glucose 128 H 120 H 216 H Lactic Acid Calcium AST ALT Alkaline Phosphatase CK-MB (CK-2) CK-MB (CK-2) Rel Index Total Protein Albumin TSH Urine WBC (Auto) Salicylates 04/21/17 04/22/17 04/22/17 23:40 14:12 23:38 WBC RBC Hgb Hct MCV MCH RDW Plt Count Lymph % (Auto) [place] % (Auto) Eos % (Auto) [place] # Seg Neutrophils % Seg Neuts % (Manual) Lymphocytes % (Manual) Seg Neutrophils # Seg Neutrophils # Man Lymphocytes # (Manual) APTT POC ABG pH ABG pH POC ABG pCO2 POC ABG pO2 ABG pO2 ABG HCO3 ABG Base Excess ABG Hemoglobin VBG pH Oxyhemoglobin Sodium Potassium Chloride Carbon Dioxide BUN Creatinine Glucose POC Glucose 157 H 242 H 117 H Lactic Acid Calcium AST ALT Alkaline Phosphatase CK-MB (CK-2) CK-MB (CK-2) Rel Index Total Protein Albumin TSH Urine WBC (Auto) Salicylates 04/23/17 04/23/1718 05:18 14:01 03:24 WBC RBC Hgb Hct MCV MCH RDW Plt Count Lymph % (Auto) [place] % (Auto) Eos % (Auto) [place] # Seg Neutrophils % Seg Neuts % (Manual) Lymphocytes % (Manual) Seg Neutrophils # Seg Neutrophils # Man Lymphocytes # (Manual) APTT POC ABG pH ABG pH POC ABG pCO2 POC ABG pO2 ABG pO2 ABG HCO3 ABG Base Excess ABG Hemoglobin VBG pH Oxyhemoglobin Sodium Potassium Chloride Carbon Dioxide BUN Creatinine Glucose POC Glucose 163 H 57 L 177 H Lactic Acid Calcium AST ALT Alkaline Phosphatase CK-MB (CK-2) CK-MB (CK-2) Rel Index Total Protein Albumin TSH Urine WBC (Auto) Salicylates 04/24/17 04/24/17 04/24/17 04:00 04:00 06:33 WBC RBC Hgb 9.9 L Hct 30.0 L MCV 79 L MCH 26 L RDW 17.1 H Plt Count 625 H Lymph % (Auto) [place] % (Auto) 8.4 H Eos % (Auto) [place] # Seg Neutrophils % Seg Neuts % (Manual) Lymphocytes % (Manual) Seg Neutrophils # Seg Neutrophils # Man Lymphocytes # (Manual) APTT POC ABG pH ABG pH POC ABG pCO2 POC ABG pO2 ABG pO2 ABG HCO3 ABG Base Excess ABG Hemoglobin VBG pH Oxyhemoglobin Sodium 136 L Potassium Chloride 94.9 L Carbon Dioxide BUN 40 H Creatinine 0.6 L Glucose 176 H POC Glucose 230 H Lactic Acid Calcium AST 67 H ALT Alkaline Phosphatase 294 H CK-MB (CK-2) CK-MB (CK-2) Rel Index Total Protein 9.0 H Albumin 2.5 L TSH Urine WBC (Auto) Salicylates 04/24/17 04/25/17 04/25/17 13:50 00:22 02:55 WBC RBC 3.54 L Hgb 9.0 L Hct 27.9 L MCV 79 L MCH 26 L RDW 17.5 H Plt Count 574 H Lymph % (Auto) [place] % (Auto) 10.4 H Eos % (Auto) [place] # 1.0 H Seg Neutrophils % Seg Neuts % (Manual) Lymphocytes % (Manual) Seg Neutrophils # Seg Neutrophils # Man Lymphocytes # (Manual) APTT POC ABG pH ABG pH POC ABG pCO2 POC ABG pO2 ABG pO2 ABG HCO3 ABG Base Excess ABG Hemoglobin VBG pH Oxyhemoglobin Sodium Potassium Chloride Carbon Dioxide BUN Creatinine Glucose POC Glucose 116 H < 40 L Lactic Acid Calcium AST ALT Alkaline Phosphatase CK-MB (CK-2) CK-MB (CK-2) Rel Index Total Protein Albumin TSH Urine WBC (Auto) Salicylates 04/25/17 04/25/17 04/25/17 02:55 11:15 18:36 WBC RBC Hgb Hct MCV MCH RDW Plt Count Lymph % (Auto) [place] % (Auto) Eos % (Auto) [place] # Seg Neutrophils % Seg Neuts % (Manual) Lymphocytes % (Manual) Seg Neutrophils # Seg Neutrophils # Man Lymphocytes # (Manual) APTT POC ABG pH ABG pH POC ABG pCO2 POC ABG pO2 ABG pO2 ABG HCO3 ABG Base Excess ABG Hemoglobin VBG pH Oxyhemoglobin Sodium Potassium Chloride 96.2 L Carbon Dioxide BUN 39 H Creatinine 0.7 L Glucose 125 H POC Glucose 227 H 280 H Lactic Acid Calcium AST ALT Alkaline Phosphatase 247 H CK-MB (CK-2) CK-MB (CK-2) Rel Index Total Protein Albumin 2.7 L TSH Urine WBC (Auto) Salicylates 04/25/17 04/26/17 04/26/17 21:49 06:53 07:27 WBC RBC 3.61 L Hgb 9.1 L Hct 28.1 L MCV 78 L MCH 25 L RDW 17.4 H Plt Count 594 H Lymph % (Auto) [place] % (Auto) 9.2 H Eos % (Auto) [place] # 1.0 H Seg Neutrophils % 70.6 H Seg Neuts % (Manual) Lymphocytes % (Manual) Seg Neutrophils # Seg Neutrophils # Man Lymphocytes # (Manual) APTT POC ABG pH ABG pH POC ABG pCO2 POC ABG pO2 ABG pO2 ABG HCO3 ABG Base Excess ABG Hemoglobin VBG pH Oxyhemoglobin Sodium Potassium Chloride Carbon Dioxide BUN Creatinine Glucose POC Glucose 192 H 60 L Lactic Acid Calcium AST ALT Alkaline Phosphatase CK-MB (CK-2) CK-MB (CK-2) Rel Index Total Protein Albumin TSH Urine WBC (Auto) Salicylates 04/26/17 04/26/17 04/26/17 07:27 07:28 13:32 WBC RBC Hgb Hct MCV MCH RDW Plt Count Lymph % (Auto) [place] % (Auto) Eos % (Auto) [place] # Seg Neutrophils % Seg Neuts % (Manual) Lymphocytes % (Manual) Seg Neutrophils # Seg Neutrophils # Man Lymphocytes # (Manual) APTT POC ABG pH ABG pH POC ABG pCO2 POC ABG pO2 ABG pO2 ABG HCO3 ABG Base Excess ABG Hemoglobin VBG pH Oxyhemoglobin Sodium Potassium Chloride 95.0 L Carbon Dioxide BUN 42 H Creatinine 0.7 L Glucose 172 H POC Glucose 190 H 168 H Lactic Acid Calcium AST 56 H ALT Alkaline Phosphatase 274 H CK-MB (CK-2) CK-MB (CK-2) Rel Index Total Protein 8.9 H Albumin 2.7 L TSH Urine WBC (Auto) Salicylates 04/26/17 04/27/17 04/27/17 23:36 05:10 05:10 WBC RBC 3.49 L Hgb 8.7 L Hct 27.0 L MCV 77 L MCH 25 L RDW 17.4 H Plt Count 558 H Lymph % (Auto) [place] % (Auto) 9.6 H Eos % (Auto) [place] # Seg Neutrophils % Seg Neuts % (Manual) Lymphocytes % (Manual) Seg Neutrophils # Seg Neutrophils # Man Lymphocytes # (Manual) APTT POC ABG pH ABG pH POC ABG pCO2 POC ABG pO2 ABG pO2 ABG HCO3 ABG Base Excess ABG Hemoglobin VBG pH Oxyhemoglobin Sodium 133 L Potassium Chloride 93.5 L Carbon Dioxide BUN 40 H Creatinine 0.7 L Glucose 179 H POC Glucose 204 H Lactic Acid Calcium AST 73 H ALT 58 H Alkaline Phosphatase 294 H CK-MB (CK-2) CK-MB (CK-2) Rel Index Total Protein 8.7 H Albumin 2.4 L TSH Urine WBC (Auto) Salicylates 04/27/17 04/27/17 04/27/17 05:45 14:08 23:46 WBC RBC Hgb Hct MCV MCH RDW Plt Count Lymph % (Auto) [place] % (Auto) Eos % (Auto) [place] # Seg Neutrophils % Seg Neuts % (Manual) Lymphocytes % (Manual) Seg Neutrophils # Seg Neutrophils # Man Lymphocytes # (Manual) APTT POC ABG pH ABG pH POC ABG pCO2 POC ABG pO2 ABG pO2 ABG HCO3 ABG Base Excess ABG Hemoglobin VBG pH Oxyhemoglobin Sodium Potassium Chloride Carbon Dioxide BUN Creatinine Glucose POC Glucose 200 H 206 H 207 H Lactic Acid Calcium AST ALT Alkaline Phosphatase CK-MB (CK-2) CK-MB (CK-2) Rel Index Total Protein Albumin TSH Urine WBC (Auto) Salicylates 04/28/17 04/28/17 04/28/17 04:48 04:53 05:10 WBC RBC 3.48 L Hgb 8.8 L Hct 26.7 L MCV 77 L MCH 25 L RDW 17.0 H Plt Count 515 H Lymph % (Auto) [place] % (Auto) 8.4 H Eos % (Auto) [place] # Seg Neutrophils % 70.6 H Seg Neuts % (Manual) Lymphocytes % (Manual) Seg Neutrophils # Seg Neutrophils # Man Lymphocytes # (Manual) APTT POC ABG pH ABG pH POC ABG pCO2 POC ABG pO2 ABG pO2 ABG HCO3 ABG Base Excess ABG Hemoglobin VBG pH Oxyhemoglobin Sodium Potassium Chloride Carbon Dioxide BUN Creatinine Glucose POC Glucose 43 L 41 L Lactic Acid Calcium AST ALT Alkaline Phosphatase CK-MB (CK-2) CK-MB (CK-2) Rel Index Total Protein Albumin TSH Urine WBC (Auto) Salicylates 04/28/17 04/28/17 04/28/17 05:10 14:06 22:07 WBC RBC Hgb Hct MCV MCH RDW Plt Count Lymph % (Auto) [place] % (Auto) Eos % (Auto) [place] # Seg Neutrophils % Seg Neuts % (Manual) Lymphocytes % (Manual) Seg Neutrophils # Seg Neutrophils # Man Lymphocytes # (Manual) APTT POC ABG pH ABG pH POC ABG pCO2 POC ABG pO2 ABG pO2 ABG HCO3 ABG Base Excess ABG Hemoglobin VBG pH Oxyhemoglobin Sodium 136 L Potassium Chloride 95.2 L Carbon Dioxide BUN 42 H Creatinine Glucose 63 L POC Glucose 303 H 227 H Lactic Acid Calcium AST 45 H ALT Alkaline Phosphatase 271 H CK-MB (CK-2) CK-MB (CK-2) Rel Index Total Protein 8.9 H Albumin 2.5 L TSH Urine WBC (Auto) Salicylates 04/29/17 04/29/17 04/29/17 06:40 14:11 21:35 WBC RBC Hgb Hct MCV MCH RDW Plt Count Lymph % (Auto) [place] % (Auto) Eos % (Auto) [place] # Seg Neutrophils % Seg Neuts % (Manual) Lymphocytes % (Manual) Seg Neutrophils # Seg Neutrophils # Man Lymphocytes # (Manual) APTT POC ABG pH ABG pH POC ABG pCO2 POC ABG pO2 ABG pO2 ABG HCO3 ABG Base Excess ABG Hemoglobin VBG pH Oxyhemoglobin Sodium Potassium Chloride Carbon Dioxide BUN Creatinine Glucose POC Glucose 254 H 244 H 184 H Lactic Acid Calcium AST ALT Alkaline Phosphatase CK-MB (CK-2) CK-MB (CK-2) Rel Index Total Protein Albumin TSH Urine WBC (Auto) Salicylates 04/30/17 04/30/17 04/30/17 05:17 14:03 22:08 WBC RBC Hgb Hct MCV MCH RDW Plt Count Lymph % (Auto) [place] % (Auto) Eos % (Auto) [place] # Seg Neutrophils % Seg Neuts % (Manual) Lymphocytes % (Manual) Seg Neutrophils # Seg Neutrophils # Man Lymphocytes # (Manual) APTT POC ABG pH ABG pH POC ABG pCO2 POC ABG pO2 ABG pO2 ABG HCO3 ABG Base Excess ABG Hemoglobin VBG pH Oxyhemoglobin Sodium Potassium Chloride Carbon Dioxide BUN Creatinine Glucose POC Glucose 173 H 182 H 247 H Lactic Acid Calcium AST ALT Alkaline Phosphatase CK-MB (CK-2) CK-MB (CK-2) Rel Index Total Protein Albumin TSH Urine WBC (Auto) Salicylates 05/01/17 05/01/17 05/01/17 05:04 15:37 18:50 WBC RBC Hgb Hct MCV MCH RDW Plt Count Lymph % (Auto) [place] % (Auto) Eos % (Auto) [place] # Seg Neutrophils % Seg Neuts % (Manual) Lymphocytes % (Manual) Seg Neutrophils # Seg Neutrophils # Man Lymphocytes # (Manual) APTT POC ABG pH ABG pH POC ABG pCO2 POC ABG pO2 ABG pO2 ABG HCO3 ABG Base Excess ABG Hemoglobin VBG pH Oxyhemoglobin Sodium Potassium Chloride Carbon Dioxide BUN Creatinine Glucose POC Glucose 335 H 68 L 144 H Lactic Acid Calcium AST ALT Alkaline Phosphatase CK-MB (CK-2) CK-MB (CK-2) Rel Index Total Protein Albumin TSH Urine WBC (Auto) Salicylates 05/01/17 05/02/17 05/02/17 22:13 04:59 14:06 WBC RBC Hgb Hct MCV MCH RDW Plt Count Lymph % (Auto) [place] % (Auto) Eos % (Auto) [place] # Seg Neutrophils % Seg Neuts % (Manual) Lymphocytes % (Manual) Seg Neutrophils # Seg Neutrophils # Man Lymphocytes # (Manual) APTT POC ABG pH ABG pH POC ABG pCO2 POC ABG pO2 ABG pO2 ABG HCO3 ABG Base Excess ABG Hemoglobin VBG pH Oxyhemoglobin Sodium Potassium Chloride Carbon Dioxide BUN Creatinine Glucose POC Glucose 192 H 225 H 165 H Lactic Acid Calcium AST ALT Alkaline Phosphatase CK-MB (CK-2) CK-MB (CK-2) Rel Index Total Protein Albumin TSH Urine WBC (Auto) Salicylates 05/02/17 05/03/17 05/03/17 21:20 05:16 16:56 WBC RBC Hgb Hct MCV MCH RDW Plt Count Lymph % (Auto) [place] % (Auto) Eos % (Auto) [place] # Seg Neutrophils % Seg Neuts % (Manual) Lymphocytes % (Manual) Seg Neutrophils # Seg Neutrophils # Man Lymphocytes # (Manual) APTT POC ABG pH ABG pH POC ABG pCO2 POC ABG pO2 ABG pO2 ABG HCO3 ABG Base Excess ABG Hemoglobin VBG pH Oxyhemoglobin Sodium Potassium Chloride Carbon Dioxide BUN Creatinine Glucose POC Glucose 181 H 323 H 125 H Lactic Acid Calcium AST ALT Alkaline Phosphatase CK-MB (CK-2) CK-MB (CK-2) Rel Index Total Protein Albumin TSH Urine WBC (Auto) Salicylates 05/03/17 05/04/17 05/04/17 21:46 05:01 14:24 WBC RBC Hgb Hct MCV MCH RDW Plt Count Lymph % (Auto) [place] % (Auto) Eos % (Auto) [place] # Seg Neutrophils % Seg Neuts % (Manual) Lymphocytes % (Manual) Seg Neutrophils # Seg Neutrophils # Man Lymphocytes # (Manual) APTT POC ABG pH ABG pH POC ABG pCO2 POC ABG pO2 ABG pO2 ABG HCO3 ABG Base Excess ABG Hemoglobin VBG pH Oxyhemoglobin Sodium Potassium Chloride Carbon Dioxide BUN Creatinine Glucose POC Glucose 210 H 360 H 219 H Lactic Acid Calcium AST ALT Alkaline Phosphatase CK-MB (CK-2) CK-MB (CK-2) Rel Index Total Protein Albumin TSH Urine WBC (Auto) Salicylates 05/04/17 05/05/17 05/05/17 21:39 01:58 05:13 WBC RBC Hgb Hct MCV MCH RDW Plt Count Lymph % (Auto) [place] % (Auto) Eos % (Auto) [place] # Seg Neutrophils % Seg Neuts % (Manual) Lymphocytes % (Manual) Seg Neutrophils # Seg Neutrophils # Man Lymphocytes # (Manual) APTT POC ABG pH ABG pH POC ABG pCO2 POC ABG pO2 ABG pO2 ABG HCO3 ABG Base Excess ABG Hemoglobin VBG pH Oxyhemoglobin Sodium Potassium Chloride Carbon Dioxide BUN Creatinine Glucose POC Glucose 126 H 175 H 267 H Lactic Acid Calcium AST ALT Alkaline Phosphatase CK-MB (CK-2) CK-MB (CK-2) Rel Index Total Protein Albumin TSH Urine WBC (Auto) Salicylates 05/05/17 12:19 WBC RBC Hgb Hct MCV MCH RDW Plt Count Lymph % (Auto) [place] % (Auto) Eos % (Auto) [place] # Seg Neutrophils % Seg Neuts % (Manual) Lymphocytes % (Manual) Seg Neutrophils # Seg Neutrophils # Man Lymphocytes # (Manual) APTT POC ABG pH ABG pH POC ABG pCO2 POC ABG pO2 ABG pO2 ABG HCO3 ABG Base Excess ABG Hemoglobin VBG pH Oxyhemoglobin Sodium Potassium Chloride Carbon Dioxide BUN Creatinine Glucose POC Glucose 221 H Lactic Acid Calcium AST ALT Alkaline Phosphatase CK-MB (CK-2) CK-MB (CK-2) Rel Index Total Protein Albumin TSH Urine WBC (Auto) Salicylates
[2017-05-06] MEDS: HumuLIN R SUB-Q SCH ×2 (06:07→23:01)
[2017-05-06] MEDS: SYNTHROID PO SCH (06:07)
--- NOTE | 2017-05-06 09:06 | Progress Note ---
Assessment and Plan Hypoglycemic brain injury Persistent vegetative state Metabolic encephalopathy Hypoglycemia/hypothermia, resolved Acute respiratory failure on mechanical ventilator dependent UTI with klebsiella, treated ( Cx + on 01/28), then with ESBL likely colonization hyponatremia, stable Hypothyroidism IDDM Hypertension low grade Fever, intermittently spikes temp - Cont supportive care and current medication. Monitor vitals, repeat cx on - no growth - increased dose of long acting insulin to 15 unit - Patient is DNR- needs guardianship from the state to give consent for further management, as has no family to give consent. Brief History: 51 YO Male with CKD,HTN, DM presents to ED after found down and unresponsive by his neighbor, who subsequently called EMS. Upon arrival, patient found unresponsive on the floor with a serum glucose of 21, patient has a known history of alcohol abuse and delirium tremens. The patient was administered D5 approximate 500 mls during transport without change in mental status/level of consciousness. Pt seen and evaluated in ED was was found to be unable to protect his airway. Pt intubated and placed on vent support. Pt found to have evidence of hypothyroidism. He was started on Synthroid. He has since been in the ICU. social human services assistants try to locate family, even spoke to the family who he lives with. They themselves were unaware of any family members. After ethics committee meeting on the patient. The decision was made to make him DO NOT RESUSCITATE and to transfer him to hospice. Given his very poor prognosis and poor likelihood of recovery. It was decided that was not his best interest to get trach and PEG. Therefore he'll be transferred to the hospice intubated. Now Awaiting on court ordered /state guardianship. Hospitalist Physical - Physical exam Narrative exam: General: comatose HEENT: Moist mucous membranes, , no lymphadenopathy Neck: supple Cardiac: S1-S2 heard Lungs: mechnical ventilated breath sounds Abdomen: soft , nontender, nondistended, bowel sounds positive Extremities: no edema clubbing or cyanosis Skin: no rash or lesions Neurologic: opens eyes, withdraws from painful stimuli, does not follow commend Subjective Date of service: 05/06/17 Principal diagnosis: Acute respiratory failure,encephalopathy Interval history: patient remains comatose, no movement of extremities no clinical change afebrile o/n Objective - Constitutional Vitals: Vital Signs - 12hr 05/05/17 05/05/17 05/05/17 21:20 22:00 22:41 Temperature Pulse Rate 69 69 70 Respiratory 15 19 Rate Respiratory 0 L Rate [ Generalized] Blood Pressure 115/72 112/65 O2 Sat by Pulse 100 100 Oximetry 05/05/17 05/05/17 05/06/17 23:10 23:17 00:00 Temperature 98.8 F Pulse Rate 67 67 70 Respiratory 12 Rate Respiratory Rate [ Generalized] Blood Pressure 112/65 117/66 O2 Sat by Pulse 100 100 99 Oximetry 05/06/17 05/06/17 05/06/17 02:01 03:10 04:00 Temperature 98.3 F Pulse Rate 65 68 Respiratory 14 Rate Respiratory Rate [ Generalized] Blood Pressure 117/66 117/66 O2 Sat by Pulse 100 100 Oximetry 05/06/17 05/06/17 05/06/17 04:01 04:15 06:01 Temperature Pulse Rate 73 73 88 Respiratory 14 13 Rate Respiratory 0 L Rate [ Generalized] Blood Pressure 117/66 120/79 O2 Sat by Pulse 99 100 99 Oximetry 05/06/17 05/06/17 06:40 08:00 Temperature 98.3 F Pulse Rate Respiratory Rate Respiratory Rate [ Generalized] Blood Pressure O2 Sat by Pulse 100 Oximetry - Labs CBC & Chem 7: 04/28/17 05:10 04/28/17 05:10 Labs: Abnormal lab results 05/05/17 05/05/17 05/05/17 Range/Units 12:19 14:11 21:18 POC Glucose 221 H 205 H 156 H (70-105) 05/06/17 Range/Units 06:02 POC Glucose 263 H (70-105)
[2017-05-06] MEDS: HEPARIN SUB-Q SCH ×2 (10:50→23:02)
[2017-05-06] MEDS: PEPCID PO SCH ×2 (10:51→23:02)
[2017-05-06] MEDS: LEVEMIR (NF) SUB-Q SCH (10:51)
--- NOTE | 2017-05-06 12:49 | Progress Note ---
Assessment and Plan Imp: 1. Hypoglycemia/hypothermia -> suspect due to too much insulin 2. Hypothyroidism; doubt myxedema coma with normal free T4 3. Acute respiratory failure, hypoxia 4. UTI/SIRS 5. Metabolic encephalopathy Rec: 1. GI/DVT PPx/TFs 2. Reviewed chart; ethics note 01/18/17 recommended AND and "hospice"; trying to get guardianship to sign necessary orders for this (however, I was told they are not willing to sign for withdrawal of ventilator); further care felt to be futile and would only prolong potential suffering without affecting ultimate outcome 3. Comfort care, no escalation of care; would not check any further labs, CXRs, or cultures; would not work him up for infections in setting of fever, only treat w/ Tylenol for palliative purposes 4. Poor prognosis Unable to locate family. Subjective Date of service: 05/06/17 Principal diagnosis: Acute respiratory failure,encephalopathy Interval history: No events. On vent. Unresponsive. + Fevers. On PSV. Active Medications Lipase/Protease/Amylase (Chano Morales 10,500 Unit) 1 each FEEDTUBE PRN PRN PRN Reason: For Clogged Feeding Tube Famotidine (Pepcid) 20 mg PO BID [facility] Last Admin: 05/06/17 10:51 Dose: 20 mg Heparin Sodium (Porcine) (Heparin) 5,000 unit SUB-Q Q12HR [facility] Last Admin: 05/06/17 10:50 Dose: 5,000 unit Hydrophilic Ointment (Vaseline Lip Therapy) 1 applic TP Q2HR PRN PRN Reason: Dry Lips Last Admin: 04/29/17 05:40 Dose: 1 applic Insulin Detemir (Levemir) 9 units SUB-Q DAILY [facility] Last Admin: 05/06/17 10:51 Dose: 9 units Insulin Human Regular (Novolin R) 0 units SUB-Q Q8HR [facility] PRN Reason: Protocol Last Admin: 05/06/17 06:07 Dose: 6 units Levothyroxine Sodium (Synthroid) 100 mcg PO DAILY@0600 [facility] Last Admin: 05/06/17 06:07 Dose: 100 mcg Loperamide HCl (Imodium A-D) 2 mg PO Q2H PRN PRN Reason: Diarrhea Last Admin: 04/29/17 00:57 Dose: 2 mg Multi-Ingred Cream/Lotion/Oil/Oint (Artificial Tears Ophth Oint) 1 applic OU Q4HR PRN PRN Reason: Dry Eye(s) Simple Syrup (Simple Syrup) 15 ml FEEDTUBE PRN PRN PRN Reason: Hypoglycemia Simple Syrup (Simple Syrup) 30 ml FEEDTUBE PRN PRN PRN Reason: Hypoglycemia Last Admin: 04/28/17 04:57 Dose: 30 ml Sodium Bicarbonate (Sodium Bicarbonate) 325 mg FEEDTUBE PRN PRN PRN Reason: For Clogged Feeding Tube Objective Vital Signs - 12hr 05/06/17 05/06/17 05/06/17 02:01 03:10 04:00 Temperature 98.3 F Pulse Rate 65 68 Respiratory 14 Rate Respiratory Rate [ Generalized] Blood Pressure 117/66 117/66 O2 Sat by Pulse 100 100 Oximetry 05/06/17 05/06/17 05/06/17 04:01 04:15 06:01 Temperature Pulse Rate 73 73 88 Respiratory 14 13 Rate Respiratory 0 L Rate [ Generalized] Blood Pressure 117/66 120/79 O2 Sat by Pulse 99 100 99 Oximetry 05/06/17 05/06/17 05/06/17 06:40 08:00 09:56 Temperature 98.3 F Pulse Rate 87 Respiratory 11 L Rate Respiratory Rate [ Generalized] Blood Pressure 110/74 O2 Sat by Pulse 100 100 Oximetry Constitutional: no acute distress, alert Eyes: non-icteric ENT: oropharynx moist, other (ETT in position) Neck: supple Effort: normal Ascultation: Bilateral: clear Cardiovascular: regular rate and rhythm (no mrg) Gastrointestinal: normoactive bowel sounds, soft, non-tender, non-distended Integumentary: normal Extremities: no cyanosis, no edema, pink and warm Neurologic: pupils equal and round, other (not following commands,mild response to pain) Psychiatric: other (unable to obtain) CBC and BMP: 04/28/17 05:10 04/28/17 05:10 ABG, PT/INR, D-dimer: ABG POC ABG pH 7.442 (7.35-7.45) 01/31/17 18:55 ABG pH 7.420 pH Units (7.350-7.450) 01/17/17 04:35 POC ABG pCO2 32.8 (35-45) L 01/31/17 18:55 ABG pCO2 34.5 mm Hg 01/17/17 04:35 POC ABG pO2 82 (80-105) 01/31/17 18:55 ABG pO2 160.3 mm Hg (80.0-90.0) H 01/17/17 04:35 POC ABG HCO3 22.4 01/31/17 18:55 POC ABG Total CO2 23 01/31/17 18:55 POC ABG O2 Sat 97 01/31/17 18:55 ABG O2 Saturation 99.0 % (95.0-99.0) 01/17/17 04:35 PT/INR, D-dimer PT 14.1 Sec. (12.2-14.9) 01/17/17 04:10 INR 1.04 (0.87-1.13) 01/17/17 04:10 Abnormal lab findings: Abnormal Labs 01/09/17 01/09/17 01/09/17 10:16 10:16 10:16 WBC RBC Hgb 9.7 L Hct 28.4 L MCV 76 L MCH 26 L RDW 17.2 H Plt Count 448 H Lymph % (Auto) [place] % (Auto) Eos % (Auto) [place] # Seg Neutrophils % 79.5 H Seg Neuts % (Manual) Lymphocytes % (Manual) Seg Neutrophils # Seg Neutrophils # Man Lymphocytes # (Manual) APTT 39.6 H POC ABG pH ABG pH POC ABG pCO2 POC ABG pO2 ABG pO2 ABG HCO3 ABG Base Excess ABG Hemoglobin VBG pH Oxyhemoglobin Sodium 132 L Potassium Chloride 96.7 L Carbon Dioxide 21 L BUN 34 H Creatinine Glucose POC Glucose Lactic Acid Calcium 8.3 L AST ALT Alkaline Phosphatase 151 H CK-MB (CK-2) 7.1 H CK-MB (CK-2) Rel Index 5.2 H Total Protein Albumin 3.3 L TSH Urine WBC (Auto) Salicylates 01/09/17 01/09/17 01/09/17 10:16 10:16 10:16 WBC RBC Hgb Hct MCV MCH RDW Plt Count Lymph % (Auto) [place] % (Auto) Eos % (Auto) [place] # Seg Neutrophils % Seg Neuts % (Manual) Lymphocytes % (Manual) Seg Neutrophils # Seg Neutrophils # Man Lymphocytes # (Manual) APTT POC ABG pH ABG pH POC ABG pCO2 POC ABG pO2 ABG pO2 ABG HCO3 ABG Base Excess ABG Hemoglobin VBG pH 7.284 L Oxyhemoglobin Sodium Potassium Chloride Carbon Dioxide BUN Creatinine Glucose POC Glucose Lactic Acid Calcium AST ALT Alkaline Phosphatase CK-MB (CK-2) CK-MB (CK-2) Rel Index Total Protein Albumin TSH 52.800 H Urine WBC (Auto) Salicylates < 0.3 L 01/09/17 01/09/17 01/09/17 10:23 11:14 12:49 WBC RBC Hgb Hct MCV MCH RDW Plt Count Lymph % (Auto) [place] % (Auto) Eos % (Auto) [place] # Seg Neutrophils % Seg Neuts % (Manual) Lymphocytes % (Manual) Seg Neutrophils # Seg Neutrophils # Man Lymphocytes # (Manual) APTT POC ABG pH ABG pH POC ABG pCO2 POC ABG pO2 643 H ABG pO2 ABG HCO3 ABG Base Excess ABG Hemoglobin VBG pH Oxyhemoglobin Sodium Potassium Chloride Carbon Dioxide BUN Creatinine Glucose POC Glucose < 40 L Lactic Acid Calcium AST ALT Alkaline Phosphatase CK-MB (CK-2) CK-MB (CK-2) Rel Index Total Protein Albumin TSH Urine WBC (Auto) 61.0 H Salicylates 01/09/17 01/09/17 01/09/17 13:13 14:21 15:09 WBC RBC Hgb Hct MCV MCH RDW Plt Count Lymph % (Auto) [place] % (Auto) Eos % (Auto) [place] # Seg Neutrophils % Seg Neuts % (Manual) Lymphocytes % (Manual) Seg Neutrophils # Seg Neutrophils # Man Lymphocytes # (Manual) APTT POC ABG pH ABG pH POC ABG pCO2 POC ABG pO2 ABG pO2 ABG HCO3 ABG Base Excess ABG Hemoglobin VBG pH Oxyhemoglobin Sodium Potassium Chloride Carbon Dioxide BUN Creatinine Glucose POC Glucose 128 H 65 L 120 H Lactic Acid Calcium AST ALT Alkaline Phosphatase CK-MB (CK-2) CK-MB (CK-2) Rel Index Total Protein Albumin TSH Urine WBC (Auto) Salicylates 01/09/17 01/09/17 01/10/17 16:28 17:14 04:30 WBC 24.1 H RBC 3.38 L Hgb 8.5 L Hct 26.0 L MCV 77 L MCH 25 L RDW 17.9 H Plt Count 474 H Lymph % (Auto) [place] % (Auto) Eos % (Auto) [place] # Seg Neutrophils % Seg Neuts % (Manual) 88.0 H Lymphocytes % (Manual) 4.0 L Seg Neutrophils # Seg Neutrophils # Man 21.2 H Lymphocytes # (Manual) 1.0 L APTT POC ABG pH ABG pH POC ABG pCO2 POC ABG pO2 ABG pO2 ABG HCO3 ABG Base Excess ABG Hemoglobin VBG pH Oxyhemoglobin Sodium Potassium Chloride Carbon Dioxide BUN Creatinine Glucose POC Glucose 44 L 112 H Lactic Acid Calcium AST ALT Alkaline Phosphatase CK-MB (CK-2) CK-MB (CK-2) Rel Index Total Protein Albumin TSH Urine WBC (Auto) Salicylates 01/10/17 01/10/17 01/10/17 04:30 05:41 05:45 WBC RBC Hgb Hct MCV MCH RDW Plt Count Lymph % (Auto) [place] % (Auto) Eos % (Auto) [place] # Seg Neutrophils % Seg Neuts % (Manual) Lymphocytes % (Manual) Seg Neutrophils # Seg Neutrophils # Man Lymphocytes # (Manual) APTT POC ABG pH ABG pH POC ABG pCO2 26.6 L POC ABG pO2 207 H ABG pO2 ABG HCO3 ABG Base Excess ABG Hemoglobin VBG pH Oxyhemoglobin Sodium Potassium Chloride Carbon Dioxide 17 L BUN 27 H Creatinine Glucose POC Glucose 68 L Lactic Acid Calcium 7.5 L AST ALT Alkaline Phosphatase CK-MB (CK-2) CK-MB (CK-2) Rel Index Total Protein Albumin TSH Urine WBC (Auto) Salicylates 01/10/17 01/10/17 01/10/17 07:47 10:50 13:41 WBC RBC Hgb Hct MCV MCH RDW Plt Count Lymph % (Auto) [place] % (Auto) Eos % (Auto) [place] # Seg Neutrophils % Seg Neuts % (Manual) Lymphocytes % (Manual) Seg Neutrophils # Seg Neutrophils # Man Lymphocytes # (Manual) APTT POC ABG pH ABG pH POC ABG pCO2 POC ABG pO2 ABG pO2 ABG HCO3 ABG Base Excess ABG Hemoglobin VBG pH Oxyhemoglobin Sodium Potassium Chloride Carbon Dioxide BUN Creatinine Glucose POC Glucose 148 H 165 H 114 H Lactic Acid Calcium AST ALT Alkaline Phosphatase CK-MB (CK-2) CK-MB (CK-2) Rel Index Total Protein Albumin TSH Urine WBC (Auto) Salicylates 01/10/17 01/10/17 01/10/17 20:20 21:39 23:24 WBC RBC Hgb Hct MCV MCH RDW Plt Count Lymph % (Auto) [place] % (Auto) Eos % (Auto) [place] # Seg Neutrophils % Seg Neuts % (Manual) Lymphocytes % (Manual) Seg Neutrophils # Seg Neutrophils # Man Lymphocytes # (Manual) APTT POC ABG pH ABG pH POC ABG pCO2 POC ABG pO2 ABG pO2 ABG HCO3 ABG Base Excess ABG Hemoglobin VBG pH Oxyhemoglobin Sodium Potassium Chloride Carbon Dioxide BUN Creatinine Glucose POC Glucose 150 H 175 H 155 H Lactic Acid Calcium AST ALT Alkaline Phosphatase CK-MB (CK-2) CK-MB (CK-2) Rel Index Total Protein Albumin TSH Urine WBC (Auto) Salicylates 01/11/17 01/11/17 01/11/17 00:19 04:06 05:20 WBC 15.2 H RBC 3.40 L Hgb 8.9 L Hct 26.3 L MCV 78 L MCH 26 L RDW 18.6 H Plt Count 462 H Lymph % (Auto) 13.2 L [place] % (Auto) Eos % (Auto) [place] # Seg Neutrophils % 80.8 H Seg Neuts % (Manual) Lymphocytes % (Manual) Seg Neutrophils # 12.3 H Seg Neutrophils # Man Lymphocytes # (Manual) APTT POC ABG pH 7.463 H ABG pH POC ABG pCO2 26.2 L POC ABG pO2 185 H ABG pO2 ABG HCO3 ABG Base Excess ABG Hemoglobin VBG pH Oxyhemoglobin Sodium Potassium Chloride Carbon Dioxide BUN Creatinine Glucose POC Glucose 163 H Lactic Acid Calcium AST ALT Alkaline Phosphatase CK-MB (CK-2) CK-MB (CK-2) Rel Index Total Protein Albumin TSH Urine WBC (Auto) Salicylates 01/11/17 01/11/17 01/11/17 05:20 06:21 07:57 WBC RBC Hgb Hct MCV MCH RDW Plt Count Lymph % (Auto) [place] % (Auto) Eos % (Auto) [place] # Seg Neutrophils % Seg Neuts % (Manual) Lymphocytes % (Manual) Seg Neutrophils # Seg Neutrophils # Man Lymphocytes # (Manual) APTT POC ABG pH ABG pH POC ABG pCO2 POC ABG pO2 ABG pO2 ABG HCO3 ABG Base Excess ABG Hemoglobin VBG pH Oxyhemoglobin Sodium Potassium 3.4 L Chloride 111.5 H Carbon Dioxide 17 L BUN Creatinine Glucose 147 H POC Glucose 139 H 188 H Lactic Acid Calcium 8.0 L AST ALT Alkaline Phosphatase CK-MB (CK-2) CK-MB (CK-2) Rel Index Total Protein Albumin TSH Urine WBC (Auto) Salicylates 01/11/17 01/11/17 01/11/17 11:46 16:50 23:15 WBC RBC Hgb Hct MCV MCH RDW Plt Count Lymph % (Auto) [place] % (Auto) Eos % (Auto) [place] # Seg Neutrophils % Seg Neuts % (Manual) Lymphocytes % (Manual) Seg Neutrophils # Seg Neutrophils # Man Lymphocytes # (Manual) APTT POC ABG pH ABG pH POC ABG pCO2 POC ABG pO2 ABG pO2 ABG HCO3 ABG Base Excess ABG Hemoglobin VBG pH Oxyhemoglobin Sodium Potassium Chloride Carbon Dioxide BUN Creatinine Glucose POC Glucose 199 H 235 H 155 H Lactic Acid Calcium AST ALT Alkaline Phosphatase CK-MB (CK-2) CK-MB (CK-2) Rel Index Total Protein Albumin TSH Urine WBC (Auto) Salicylates 01/12/17 01/12/17 01/12/17 05:02 06:56 14:50 WBC RBC Hgb Hct MCV MCH RDW Plt Count Lymph % (Auto) [place] % (Auto) Eos % (Auto) [place] # Seg Neutrophils % Seg Neuts % (Manual) Lymphocytes % (Manual) Seg Neutrophils # Seg Neutrophils # Man Lymphocytes # (Manual) APTT POC ABG pH ABG pH POC ABG pCO2 28.0 L POC ABG pO2 178 H ABG pO2 ABG HCO3 ABG Base Excess ABG Hemoglobin VBG pH Oxyhemoglobin Sodium Potassium Chloride Carbon Dioxide BUN Creatinine Glucose POC Glucose 119 H 164 H Lactic Acid Calcium AST ALT Alkaline Phosphatase CK-MB (CK-2) CK-MB (CK-2) Rel Index Total Protein Albumin TSH Urine WBC (Auto) Salicylates 01/13/17 01/13/17 01/13/17 03:37 03:37 04:26 WBC RBC 3.61 L Hgb 9.3 L Hct 28.0 L MCV 78 L MCH 26 L RDW 18.2 H Plt Count Lymph % (Auto) [place] % (Auto) Eos % (Auto) [place] # Seg Neutrophils % Seg Neuts % (Manual) Lymphocytes % (Manual) Seg Neutrophils # Seg Neutrophils # Man Lymphocytes # (Manual) APTT POC ABG pH 7.485 H ABG pH POC ABG pCO2 25.4 L POC ABG pO2 73 L ABG pO2 ABG HCO3 ABG Base Excess ABG Hemoglobin VBG pH Oxyhemoglobin Sodium Potassium Chloride 112.4 H Carbon Dioxide 19 L BUN Creatinine Glucose 118 H POC Glucose Lactic Acid Calcium 8.0 L AST ALT Alkaline Phosphatase CK-MB (CK-2) CK-MB (CK-2) Rel Index Total Protein Albumin TSH Urine WBC (Auto) Salicylates 01/13/17 01/13/17 01/13/17 06:15 11:50 17:31 WBC RBC Hgb Hct MCV MCH RDW Plt Count Lymph % (Auto) [place] % (Auto) Eos % (Auto) [place] # Seg Neutrophils % Seg Neuts % (Manual) Lymphocytes % (Manual) Seg Neutrophils # Seg Neutrophils # Man Lymphocytes # (Manual) APTT POC ABG pH ABG pH POC ABG pCO2 POC ABG pO2 ABG pO2 ABG HCO3 ABG Base Excess ABG Hemoglobin VBG pH Oxyhemoglobin Sodium Potassium Chloride Carbon Dioxide BUN Creatinine Glucose POC Glucose 116 H 171 H 203 H Lactic Acid Calcium AST ALT Alkaline Phosphatase CK-MB (CK-2) CK-MB (CK-2) Rel Index Total Protein Albumin TSH Urine WBC (Auto) Salicylates 01/14/17 01/14/17 01/14/17 00:02 04:50 04:50 WBC RBC 3.32 L Hgb 8.5 L Hct 26.1 L MCV 79 L MCH 26 L RDW 18.2 H Plt Count Lymph % (Auto) [place] % (Auto) 9.0 H Eos % (Auto) [place] # Seg Neutrophils % Seg Neuts % (Manual) Lymphocytes % (Manual) Seg Neutrophils # Seg Neutrophils # Man Lymphocytes # (Manual) APTT POC ABG pH ABG pH POC ABG pCO2 POC ABG pO2 ABG pO2 ABG HCO3 ABG Base Excess ABG Hemoglobin VBG pH Oxyhemoglobin Sodium Potassium Chloride 112.5 H Carbon Dioxide BUN Creatinine Glucose 149 H POC Glucose 157 H Lactic Acid Calcium 8.1 L AST ALT Alkaline Phosphatase CK-MB (CK-2) CK-MB (CK-2) Rel Index Total Protein Albumin TSH Urine WBC (Auto) Salicylates 01/14/17 01/14/17 01/14/17 05:10 11:27 14:07 WBC RBC Hgb Hct MCV MCH RDW Plt Count Lymph % (Auto) [place] % (Auto) Eos % (Auto) [place] # Seg Neutrophils % Seg Neuts % (Manual) Lymphocytes % (Manual) Seg Neutrophils # Seg Neutrophils # Man Lymphocytes # (Manual) APTT POC ABG pH ABG pH POC ABG pCO2 POC ABG pO2 ABG pO2 ABG HCO3 ABG Base Excess ABG Hemoglobin VBG pH Oxyhemoglobin Sodium Potassium Chloride Carbon Dioxide BUN Creatinine Glucose POC Glucose 176 H 147 H Lactic Acid Calcium AST ALT Alkaline Phosphatase CK-MB (CK-2) CK-MB (CK-2) Rel Index Total Protein Albumin TSH Urine WBC (Auto) 53.0 H Salicylates 01/14/17 01/15/17 01/15/17 16:52 00:04 05:26 WBC RBC Hgb Hct MCV MCH RDW Plt Count Lymph % (Auto) [place] % (Auto) Eos % (Auto) [place] # Seg Neutrophils % Seg Neuts % (Manual) Lymphocytes % (Manual) Seg Neutrophils # Seg Neutrophils # Man Lymphocytes # (Manual) APTT POC ABG pH ABG pH POC ABG pCO2 POC ABG pO2 ABG pO2 ABG HCO3 ABG Base Excess ABG Hemoglobin VBG pH Oxyhemoglobin Sodium Potassium Chloride Carbon Dioxide BUN Creatinine Glucose POC Glucose 131 H 193 H 215 H Lactic Acid Calcium AST ALT Alkaline Phosphatase CK-MB (CK-2) CK-MB (CK-2) Rel Index Total Protein Albumin TSH Urine WBC (Auto) Salicylates 01/15/17 01/15/17 01/15/17 11:49 17:47 21:33 WBC RBC Hgb Hct MCV MCH RDW Plt Count Lymph % (Auto) [place] % (Auto) Eos % (Auto) [place] # Seg Neutrophils % Seg Neuts % (Manual) Lymphocytes % (Manual) Seg Neutrophils # Seg Neutrophils # Man Lymphocytes # (Manual) APTT POC ABG pH ABG pH POC ABG pCO2 POC ABG pO2 ABG pO2 ABG HCO3 ABG Base Excess ABG Hemoglobin VBG pH Oxyhemoglobin Sodium Potassium Chloride Carbon Dioxide BUN Creatinine Glucose POC Glucose 121 H 211 H 275 H Lactic Acid Calcium AST ALT Alkaline Phosphatase CK-MB (CK-2) CK-MB (CK-2) Rel Index Total Protein Albumin TSH Urine WBC (Auto) Salicylates 01/16/17 01/16/17 01/16/17 04:30 05:28 13:45 WBC RBC Hgb Hct MCV MCH RDW Plt Count Lymph % (Auto) [place] % (Auto) Eos % (Auto) [place] # Seg Neutrophils % Seg Neuts % (Manual) Lymphocytes % (Manual) Seg Neutrophils # Seg Neutrophils # Man Lymphocytes # (Manual) APTT POC ABG pH ABG pH 7.457 H POC ABG pCO2 POC ABG pO2 ABG pO2 55.1 L ABG HCO3 19.4 L ABG Base Excess -4.0 L ABG Hemoglobin 6.8 L VBG pH Oxyhemoglobin 94.9 L Sodium Potassium Chloride Carbon Dioxide BUN Creatinine Glucose POC Glucose 271 H 236 H Lactic Acid Calcium AST ALT Alkaline Phosphatase CK-MB (CK-2) CK-MB (CK-2) Rel Index Total Protein Albumin TSH Urine WBC (Auto) Salicylates 01/16/17 01/17/17 01/17/17 21:39 04:10 04:10 WBC 4.4 L RBC 2.98 L Hgb 7.7 L Hct 23.3 L MCV 78 L MCH 26 L RDW 18.1 H Plt Count Lymph % (Auto) [place] % (Auto) Eos % (Auto) [place] # Seg Neutrophils % Seg Neuts % (Manual) Lymphocytes % (Manual) Seg Neutrophils # Seg Neutrophils # Man Lymphocytes # (Manual) APTT POC ABG pH ABG pH POC ABG pCO2 POC ABG pO2 ABG pO2 ABG HCO3 ABG Base Excess ABG Hemoglobin VBG pH Oxyhemoglobin Sodium Potassium 3.3 L Chloride 108.7 H Carbon Dioxide 20 L BUN 8 L Creatinine Glucose 202 H POC Glucose 258 H Lactic Acid Calcium 7.6 L AST ALT Alkaline Phosphatase CK-MB (CK-2) CK-MB (CK-2) Rel Index Total Protein Albumin TSH Urine WBC (Auto) Salicylates 01/17/17 01/17/17 01/17/17 04:35 12:23 16:01 WBC RBC Hgb Hct MCV MCH RDW Plt Count Lymph % (Auto) [place] % (Auto) Eos % (Auto) [place] # Seg Neutrophils % Seg Neuts % (Manual) Lymphocytes % (Manual) Seg Neutrophils # Seg Neutrophils # Man Lymphocytes # (Manual) APTT POC ABG pH ABG pH POC ABG pCO2 POC ABG pO2 ABG pO2 160.3 H ABG HCO3 ABG Base Excess -2.3 L ABG Hemoglobin 7.9 L VBG pH Oxyhemoglobin Sodium Potassium Chloride Carbon Dioxide BUN Creatinine Glucose POC Glucose 321 H 239 H Lactic Acid Calcium AST ALT Alkaline Phosphatase CK-MB (CK-2) CK-MB (CK-2) Rel Index Total Protein Albumin TSH Urine WBC (Auto) Salicylates 01/18/17 01/18/17 01/18/17 05:07 12:09 17:54 WBC RBC Hgb Hct MCV MCH RDW Plt Count Lymph % (Auto) [place] % (Auto) Eos % (Auto) [place] # Seg Neutrophils % Seg Neuts % (Manual) Lymphocytes % (Manual) Seg Neutrophils # Seg Neutrophils # Man Lymphocytes # (Manual) APTT POC ABG pH ABG pH POC ABG pCO2 POC ABG pO2 ABG pO2 ABG HCO3 ABG Base Excess ABG Hemoglobin VBG pH Oxyhemoglobin Sodium Potassium Chloride Carbon Dioxide BUN Creatinine Glucose POC Glucose 155 H 203 H 132 H Lactic Acid Calcium AST ALT Alkaline Phosphatase CK-MB (CK-2) CK-MB (CK-2) Rel Index Total Protein Albumin TSH Urine WBC (Auto) Salicylates 01/18/17 01/19/17 01/19/17 23:43 04:28 12:11 WBC RBC Hgb Hct MCV MCH RDW Plt Count Lymph % (Auto) [place] % (Auto) Eos % (Auto) [place] # Seg Neutrophils % Seg Neuts % (Manual) Lymphocytes % (Manual) Seg Neutrophils # Seg Neutrophils # Man Lymphocytes # (Manual) APTT POC ABG pH ABG pH POC ABG pCO2 POC ABG pO2 ABG pO2 ABG HCO3 ABG Base Excess ABG Hemoglobin VBG pH Oxyhemoglobin Sodium Potassium Chloride Carbon Dioxide BUN Creatinine Glucose POC Glucose 125 H 182 H 153 H Lactic Acid Calcium AST ALT Alkaline Phosphatase CK-MB (CK-2) CK-MB (CK-2) Rel Index Total Protein Albumin TSH Urine WBC (Auto) Salicylates 01/19/17 01/20/17 01/20/17 17:23 00:12 05:44 WBC RBC Hgb Hct MCV MCH RDW Plt Count Lymph % (Auto) [place] % (Auto) Eos % (Auto) [place] # Seg Neutrophils % Seg Neuts % (Manual) Lymphocytes % (Manual) Seg Neutrophils # Seg Neutrophils # Man Lymphocytes # (Manual) APTT POC ABG pH ABG pH POC ABG pCO2 POC ABG pO2 ABG pO2 ABG HCO3 ABG Base Excess ABG Hemoglobin VBG pH Oxyhemoglobin Sodium Potassium Chloride Carbon Dioxide BUN Creatinine Glucose POC Glucose 66 L 139 H 176 H Lactic Acid Calcium AST ALT Alkaline Phosphatase CK-MB (CK-2) CK-MB (CK-2) Rel Index Total Protein Albumin TSH Urine WBC (Auto) Salicylates 01/20/17 01/20/17 01/20/17 11:48 17:42 23:43 WBC RBC Hgb Hct MCV MCH RDW Plt Count Lymph % (Auto) [place] % (Auto) Eos % (Auto) [place] # Seg Neutrophils % Seg Neuts % (Manual) Lymphocytes % (Manual) Seg Neutrophils # Seg Neutrophils # Man Lymphocytes # (Manual) APTT POC ABG pH ABG pH POC ABG pCO2 POC ABG pO2 ABG pO2 ABG HCO3 ABG Base Excess ABG Hemoglobin VBG pH Oxyhemoglobin Sodium Potassium Chloride Carbon Dioxide BUN Creatinine Glucose POC Glucose 218 H 132 H 178 H Lactic Acid Calcium AST ALT Alkaline Phosphatase CK-MB (CK-2) CK-MB (CK-2) Rel Index Total Protein Albumin TSH Urine WBC (Auto) Salicylates 01/21/17 01/21/17 01/21/17 05:34 11:17 23:37 WBC RBC Hgb Hct MCV MCH RDW Plt Count Lymph % (Auto) [place] % (Auto) Eos % (Auto) [place] # Seg Neutrophils % Seg Neuts % (Manual) Lymphocytes % (Manual) Seg Neutrophils # Seg Neutrophils # Man Lymphocytes # (Manual) APTT POC ABG pH ABG pH POC ABG pCO2 POC ABG pO2 ABG pO2 ABG HCO3 ABG Base Excess ABG Hemoglobin VBG pH Oxyhemoglobin Sodium Potassium Chloride Carbon Dioxide BUN Creatinine Glucose POC Glucose 106 H 213 H 140 H Lactic Acid Calcium AST ALT Alkaline Phosphatase CK-MB (CK-2) CK-MB (CK-2) Rel Index Total Protein Albumin TSH Urine WBC (Auto) Salicylates 01/22/17 01/22/17 01/22/17 04:00 04:00 04:58 WBC RBC 3.26 L Hgb 8.3 L Hct 25.5 L MCV 78 L MCH 25 L RDW 17.9 H Plt Count Lymph % (Auto) [place] % (Auto) 7.9 H Eos % (Auto) 6.2 H [place] # Seg Neutrophils % Seg Neuts % (Manual) Lymphocytes % (Manual) Seg Neutrophils # Seg Neutrophils # Man Lymphocytes # (Manual) APTT POC ABG pH ABG pH POC ABG pCO2 POC ABG pO2 ABG pO2 ABG HCO3 ABG Base Excess ABG Hemoglobin VBG pH Oxyhemoglobin Sodium Potassium Chloride 95.5 L Carbon Dioxide 31 H D BUN Creatinine Glucose 134 H POC Glucose 146 H Lactic Acid Calcium AST 44 H ALT Alkaline Phosphatase 379 H CK-MB (CK-2) CK-MB (CK-2) Rel Index Total Protein Albumin 2.7 L TSH Urine WBC (Auto) Salicylates 01/22/17 01/22/17 01/22/17 12:12 18:12 23:39 WBC RBC Hgb Hct MCV MCH RDW Plt Count Lymph % (Auto) [place] % (Auto) Eos % (Auto) [place] # Seg Neutrophils % Seg Neuts % (Manual) Lymphocytes % (Manual) Seg Neutrophils # Seg Neutrophils # Man Lymphocytes # (Manual) APTT POC ABG pH ABG pH POC ABG pCO2 POC ABG pO2 ABG pO2 ABG HCO3 ABG Base Excess ABG Hemoglobin VBG pH Oxyhemoglobin Sodium Potassium Chloride Carbon Dioxide BUN Creatinine Glucose POC Glucose 255 H 182 H 134 H Lactic Acid Calcium AST ALT Alkaline Phosphatase CK-MB (CK-2) CK-MB (CK-2) Rel Index Total Protein Albumin TSH Urine WBC (Auto) Salicylates 01/23/17 01/23/17 01/23/17 04:43 12:12 17:36 WBC RBC Hgb Hct MCV MCH RDW Plt Count Lymph % (Auto) [place] % (Auto) Eos % (Auto) [place] # Seg Neutrophils % Seg Neuts % (Manual) Lymphocytes % (Manual) Seg Neutrophils # Seg Neutrophils # Man Lymphocytes # (Manual) APTT POC ABG pH ABG pH POC ABG pCO2 POC ABG pO2 ABG pO2 ABG HCO3 ABG Base Excess ABG Hemoglobin VBG pH Oxyhemoglobin Sodium Potassium Chloride Carbon Dioxide BUN Creatinine Glucose POC Glucose 218 H 128 H 156 H Lactic Acid Calcium AST ALT Alkaline Phosphatase CK-MB (CK-2) CK-MB (CK-2) Rel Index Total Protein Albumin TSH Urine WBC (Auto) Salicylates 01/24/17 01/24/17 01/24/17 00:08 05:16 11:40 WBC RBC Hgb Hct MCV MCH RDW Plt Count Lymph % (Auto) [place] % (Auto) Eos % (Auto) Bradford # Seg Neutrophils % Seg Neuts % (Manual) Lymphocytes % (Manual) Seg Neutrophils # Seg Neutrophils # Man Lymphocytes # (Manual) APTT POC ABG pH ABG pH POC ABG pCO2 POC ABG pO2 ABG pO2 ABG HCO3 ABG Base Excess ABG Hemoglobin VBG pH Oxyhemoglobin Sodium Potassium Chloride Carbon Dioxide BUN Creatinine Glucose POC Glucose 129 H 169 H 187 H Lactic Acid Calcium AST ALT Alkaline Phosphatase CK-MB (CK-2) CK-MB (CK-2) Rel Index Total Protein Albumin TSH Urine WBC (Auto) Salicylates 01/24/17 01/24/17 01/25/17 17:43 23:23 04:56 WBC RBC Hgb Hct MCV MCH RDW Plt Count Lymph % (Auto) [place] % (Auto) Eos % (Auto) Bradford # Seg Neutrophils % Seg Neuts % (Manual) Lymphocytes % (Manual) Seg Neutrophils # Seg Neutrophils # Man Lymphocytes # (Manual) APTT POC ABG pH ABG pH POC ABG pCO2 POC ABG pO2 ABG pO2 ABG HCO3 ABG Base Excess ABG Hemoglobin VBG pH Oxyhemoglobin Sodium Potassium Chloride Carbon Dioxide BUN Creatinine Glucose POC Glucose 215 H 222 H 210 H Lactic Acid Calcium AST ALT Alkaline Phosphatase CK-MB (CK-2) CK-MB (CK-2) Rel Index Total Protein Albumin TSH Urine WBC (Auto) Salicylates 01/25/17 01/25/17 01/26/17 11:52 17:37 00:02 WBC RBC Hgb Hct MCV MCH RDW Plt Count Lymph % (Auto) [place] % (Auto) Eos % (Auto) [place] # Seg Neutrophils % Seg Neuts % (Manual) Lymphocytes % (Manual) Seg Neutrophils # Seg Neutrophils # Man Lymphocytes # (Manual) APTT POC ABG pH ABG pH POC ABG pCO2 POC ABG pO2 ABG pO2 ABG HCO3 ABG Base Excess ABG Hemoglobin VBG pH Oxyhemoglobin Sodium Potassium Chloride Carbon Dioxide BUN Creatinine Glucose POC Glucose 284 H 218 H 192 H Lactic Acid Calcium AST ALT Alkaline Phosphatase CK-MB (CK-2) CK-MB (CK-2) Rel Index Total Protein Albumin TSH Urine WBC (Auto) Salicylates 01/26/17 01/26/17 01/26/17 05:33 12:17 17:50 WBC RBC Hgb Hct MCV MCH RDW Plt Count Lymph % (Auto) [place] % (Auto) Eos % (Auto) [place] # Seg Neutrophils % Seg Neuts % (Manual) Lymphocytes % (Manual) Seg Neutrophils # Seg Neutrophils # Man Lymphocytes # (Manual) APTT POC ABG pH ABG pH POC ABG pCO2 POC ABG pO2 ABG pO2 ABG HCO3 ABG Base Excess ABG Hemoglobin VBG pH Oxyhemoglobin Sodium Potassium Chloride Carbon Dioxide BUN Creatinine Glucose POC Glucose 199 H 227 H 229 H Lactic Acid Calcium AST ALT Alkaline Phosphatase CK-MB (CK-2) CK-MB (CK-2) Rel Index Total Protein Albumin TSH Urine WBC (Auto) Salicylates 01/26/17 01/27/17 01/27/17 23:57 05:31 11:42 WBC RBC Hgb Hct MCV MCH RDW Plt Count Lymph % (Auto) [place] % (Auto) Eos % (Auto) [place] # Seg Neutrophils % Seg Neuts % (Manual) Lymphocytes % (Manual) Seg Neutrophils # Seg Neutrophils # Man Lymphocytes # (Manual) APTT POC ABG pH ABG pH POC ABG pCO2 POC ABG pO2 ABG pO2 ABG HCO3 ABG Base Excess ABG Hemoglobin VBG pH Oxyhemoglobin Sodium Potassium Chloride Carbon Dioxide BUN Creatinine Glucose POC Glucose 186 H 285 H 260 H Lactic Acid Calcium AST ALT Alkaline Phosphatase CK-MB (CK-2) CK-MB (CK-2) Rel Index Total Protein Albumin TSH Urine WBC (Auto) Salicylates 01/27/17 01/27/17 01/27/17 17:47 23:58 Unknown WBC 12.1 H RBC 3.28 L Hgb 8.5 L Hct 25.5 L MCV 78 L MCH 26 L RDW 16.8 H Plt Count 601 H Lymph % (Auto) [place] % (Auto) Eos % (Auto) [place] # Seg Neutrophils % Seg Neuts % (Manual) Lymphocytes % (Manual) Seg Neutrophils # Seg Neutrophils # Man Lymphocytes # (Manual) APTT POC ABG pH ABG pH POC ABG pCO2 POC ABG pO2 ABG pO2 ABG HCO3 ABG Base Excess ABG Hemoglobin VBG pH Oxyhemoglobin Sodium Potassium Chloride Carbon Dioxide BUN Creatinine Glucose POC Glucose 329 H 225 H Lactic Acid Calcium AST ALT Alkaline Phosphatase CK-MB (CK-2) CK-MB (CK-2) Rel Index Total Protein Albumin TSH Urine WBC (Auto) Salicylates 01/27/17 01/28/17 01/28/17 Unknown 03:44 03:44 WBC RBC 3.14 L Hgb 8.2 L Hct 24.1 L MCV 77 L MCH 26 L RDW 16.9 H Plt Count 567 H Lymph % (Auto) [place] % (Auto) Eos % (Auto) [place] # Seg Neutrophils % Seg Neuts % (Manual) Lymphocytes % (Manual) Seg Neutrophils # Seg Neutrophils # Man Lymphocytes # (Manual) APTT POC ABG pH ABG pH POC ABG pCO2 POC ABG pO2 ABG pO2 ABG HCO3 ABG Base Excess ABG Hemoglobin VBG pH Oxyhemoglobin Sodium 128 L Potassium 5.4 H Chloride 87.5 L Carbon Dioxide BUN 44 H 42 H Creatinine Glucose 250 H 128 H POC Glucose Lactic Acid Calcium AST ALT Alkaline Phosphatase CK-MB (CK-2) CK-MB (CK-2) Rel Index Total Protein Albumin TSH Urine WBC (Auto) Salicylates 01/28/17 01/28/17 01/28/17 11:43 16:47 17:52 WBC RBC Hgb Hct MCV MCH RDW Plt Count Lymph % (Auto) [place] % (Auto) Eos % (Auto) [place] # Seg Neutrophils % Seg Neuts % (Manual) Lymphocytes % (Manual) Seg Neutrophils # Seg Neutrophils # Man Lymphocytes # (Manual) APTT POC ABG pH ABG pH POC ABG pCO2 POC ABG pO2 ABG pO2 ABG HCO3 ABG Base Excess ABG Hemoglobin VBG pH Oxyhemoglobin Sodium Potassium Chloride Carbon Dioxide BUN Creatinine Glucose POC Glucose 351 H 249 H Lactic Acid Calcium AST ALT Alkaline Phosphatase CK-MB (CK-2) CK-MB (CK-2) Rel Index Total Protein Albumin TSH Urine WBC (Auto) > 182.0 H Salicylates 01/29/17 01/29/17 01/29/17 05:25 05:25 09:32 WBC 13.6 H RBC 3.25 L Hgb 8.3 L Hct 25.1 L MCV 77 L MCH 26 L RDW 16.8 H Plt Count 514 H Lymph % (Auto) [place] % (Auto) Eos % (Auto) [place] # Seg Neutrophils % Seg Neuts % (Manual) Lymphocytes % (Manual) Seg Neutrophils # Seg Neutrophils # Man Lymphocytes # (Manual) APTT POC ABG pH ABG pH POC ABG pCO2 POC ABG pO2 ABG pO2 ABG HCO3 ABG Base Excess ABG Hemoglobin VBG pH Oxyhemoglobin Sodium Potassium Chloride 97.8 L Carbon Dioxide BUN 34 H Creatinine Glucose 222 H POC Glucose Lactic Acid 2.50 H* Calcium AST ALT Alkaline Phosphatase CK-MB (CK-2) CK-MB (CK-2) Rel Index Total Protein Albumin TSH Urine WBC (Auto) Salicylates 01/29/17 01/29/17 01/29/17 11:56 18:11 23:55 WBC RBC Hgb Hct MCV MCH RDW Plt Count Lymph % (Auto) [place] % (Auto) Eos % (Auto) [place] # Seg Neutrophils % Seg Neuts % (Manual) Lymphocytes % (Manual) Seg Neutrophils # Seg Neutrophils # Man Lymphocytes # (Manual) APTT POC ABG pH ABG pH POC ABG pCO2 POC ABG pO2 ABG pO2 ABG HCO3 ABG Base Excess ABG Hemoglobin VBG pH Oxyhemoglobin Sodium Potassium Chloride Carbon Dioxide BUN Creatinine Glucose POC Glucose 261 H 215 H 176 H Lactic Acid Calcium AST ALT Alkaline Phosphatase CK-MB (CK-2) CK-MB (CK-2) Rel Index Total Protein Albumin TSH Urine WBC (Auto) Salicylates 01/30/17 01/30/17 01/30/17 05:31 05:31 05:34 WBC 15.2 H RBC 3.09 L Hgb 7.9 L Hct 23.9 L MCV 77 L MCH 26 L RDW 16.9 H Plt Count 569 H Lymph % (Auto) [place] % (Auto) Eos % (Auto) [place] # Seg Neutrophils % Seg Neuts % (Manual) Lymphocytes % (Manual) Seg Neutrophils # Seg Neutrophils # Man Lymphocytes # (Manual) APTT POC ABG pH ABG pH POC ABG pCO2 POC ABG pO2 ABG pO2 ABG HCO3 ABG Base Excess ABG Hemoglobin VBG pH Oxyhemoglobin Sodium Potassium Chloride Carbon Dioxide BUN 24 H Creatinine Glucose 235 H POC Glucose 243 H Lactic Acid Calcium AST ALT Alkaline Phosphatase CK-MB (CK-2) CK-MB (CK-2) Rel Index Total Protein Albumin TSH Urine WBC (Auto) Salicylates 01/30/17 01/30/17 01/30/17 11:38 17:58 23:29 WBC RBC Hgb Hct MCV MCH RDW Plt Count Lymph % (Auto) [place] % (Auto) Eos % (Auto) [place] # Seg Neutrophils % Seg Neuts % (Manual) Lymphocytes % (Manual) Seg Neutrophils # Seg Neutrophils # Man Lymphocytes # (Manual) APTT POC ABG pH ABG pH POC ABG pCO2 POC ABG pO2 ABG pO2 ABG HCO3 ABG Base Excess ABG Hemoglobin VBG pH Oxyhemoglobin Sodium Potassium Chloride Carbon Dioxide BUN Creatinine Glucose POC Glucose 298 H 208 H 245 H Lactic Acid Calcium AST ALT Alkaline Phosphatase CK-MB (CK-2) CK-MB (CK-2) Rel Index Total Protein Albumin TSH Urine WBC (Auto) Salicylates 01/31/17 01/31/17 01/31/17 04:39 04:39 05:57 WBC 11.4 H RBC 3.22 L Hgb 8.2 L Hct 24.9 L MCV 78 L MCH 25 L RDW 17.2 H Plt Count 576 H Lymph % (Auto) [place] % (Auto) Eos % (Auto) [place] # Seg Neutrophils % Seg Neuts % (Manual) Lymphocytes % (Manual) Seg Neutrophils # Seg Neutrophils # Man Lymphocytes # (Manual) APTT POC ABG pH ABG pH POC ABG pCO2 POC ABG pO2 ABG pO2 ABG HCO3 ABG Base Excess ABG Hemoglobin VBG pH Oxyhemoglobin Sodium Potassium Chloride Carbon Dioxide BUN Creatinine 0.7 L Glucose 223 H POC Glucose 264 H Lactic Acid Calcium AST ALT Alkaline Phosphatase CK-MB (CK-2) CK-MB (CK-2) Rel Index Total Protein Albumin TSH Urine WBC (Auto) Salicylates 01/31/17 01/31/17 01/31/17 12:23 17:41 18:55 WBC RBC Hgb Hct MCV MCH RDW Plt Count Lymph % (Auto) [place] % (Auto) Eos % (Auto) [place] # Seg Neutrophils % Seg Neuts % (Manual) Lymphocytes % (Manual) Seg Neutrophils # Seg Neutrophils # Man Lymphocytes # (Manual) APTT POC ABG pH ABG pH POC ABG pCO2 32.8 L POC ABG pO2 ABG pO2 ABG HCO3 ABG Base Excess ABG Hemoglobin VBG pH Oxyhemoglobin Sodium Potassium Chloride Carbon Dioxide BUN Creatinine Glucose POC Glucose 252 H 208 H Lactic Acid Calcium AST ALT Alkaline Phosphatase CK-MB (CK-2) CK-MB (CK-2) Rel Index Total Protein Albumin TSH Urine WBC (Auto) Salicylates 01/31/17 02/01/17 02/01/17 22:59 03:38 03:38 WBC RBC 2.81 L Hgb 7.4 L Hct 22.1 L MCV 79 L MCH 27 L RDW 17.0 H Plt Count 540 H Lymph % (Auto) [place] % (Auto) Eos % (Auto) [place] # Seg Neutrophils % Seg Neuts % (Manual) Lymphocytes % (Manual) Seg Neutrophils # Seg Neutrophils # Man Lymphocytes # (Manual) APTT POC ABG pH ABG pH POC ABG pCO2 POC ABG pO2 ABG pO2 ABG HCO3 ABG Base Excess ABG Hemoglobin VBG pH Oxyhemoglobin Sodium Potassium Chloride Carbon Dioxide 21 L BUN Creatinine 0.7 L Glucose POC Glucose 40 L Lactic Acid Calcium AST ALT Alkaline Phosphatase CK-MB (CK-2) CK-MB (CK-2) Rel Index Total Protein Albumin TSH Urine WBC (Auto) Salicylates 02/01/17 02/01/17 02/01/17 05:17 12:19 16:44 WBC RBC Hgb Hct MCV MCH RDW Plt Count Lymph % (Auto) [place] % (Auto) Eos % (Auto) [place] # Seg Neutrophils % Seg Neuts % (Manual) Lymphocytes % (Manual) Seg Neutrophils # Seg Neutrophils # Man Lymphocytes # (Manual) APTT POC ABG pH ABG pH POC ABG pCO2 POC ABG pO2 ABG pO2 ABG HCO3 ABG Base Excess ABG Hemoglobin VBG pH Oxyhemoglobin Sodium Potassium Chloride Carbon Dioxide BUN Creatinine Glucose POC Glucose 140 H 213 H 172 H Lactic Acid Calcium AST ALT Alkaline Phosphatase CK-MB (CK-2) CK-MB (CK-2) Rel Index Total Protein Albumin TSH Urine WBC (Auto) Salicylates 02/01/17 02/02/17 02/02/17 23:59 05:14 11:24 WBC RBC Hgb Hct MCV MCH RDW Plt Count Lymph % (Auto) [place] % (Auto) Eos % (Auto) [place] # Seg Neutrophils % Seg Neuts % (Manual) Lymphocytes % (Manual) Seg Neutrophils # Seg Neutrophils # Man Lymphocytes # (Manual) APTT POC ABG pH ABG pH POC ABG pCO2 POC ABG pO2 ABG pO2 ABG HCO3 ABG Base Excess ABG Hemoglobin VBG pH Oxyhemoglobin Sodium Potassium Chloride Carbon Dioxide BUN Creatinine Glucose POC Glucose 181 H 194 H 209 H Lactic Acid Calcium AST ALT Alkaline Phosphatase CK-MB (CK-2) CK-MB (CK-2) Rel Index Total Protein Albumin TSH Urine WBC (Auto) Salicylates 02/02/17 02/02/17 02/02/17 11:46 11:46 17:47 WBC RBC 2.94 L Hgb 7.5 L Hct 23.0 L MCV 78 L MCH 25 L RDW 16.9 H Plt Count 520 H Lymph % (Auto) [place] % (Auto) Eos % (Auto) [place] # Seg Neutrophils % Seg Neuts % (Manual) Lymphocytes % (Manual) Seg Neutrophils # Seg Neutrophils # Man Lymphocytes # (Manual) APTT POC ABG pH ABG pH POC ABG pCO2 POC ABG pO2 ABG pO2 ABG HCO3 ABG Base Excess ABG Hemoglobin VBG pH Oxyhemoglobin Sodium Potassium Chloride Carbon Dioxide BUN Creatinine 0.6 L Glucose 189 H POC Glucose 147 H Lactic Acid Calcium 8.1 L AST ALT Alkaline Phosphatase CK-MB (CK-2) CK-MB (CK-2) Rel Index Total Protein Albumin TSH Urine WBC (Auto) Salicylates 02/02/17 02/03/17 02/03/17 23:32 05:53 11:19 WBC RBC Hgb Hct MCV MCH RDW Plt Count Lymph % (Auto) [place] % (Auto) Eos % (Auto) [place] # Seg Neutrophils % Seg Neuts % (Manual) Lymphocytes % (Manual) Seg Neutrophils # Seg Neutrophils # Man Lymphocytes # (Manual) APTT POC ABG pH ABG pH POC ABG pCO2 POC ABG pO2 ABG pO2 ABG HCO3 ABG Base Excess ABG Hemoglobin VBG pH Oxyhemoglobin Sodium Potassium Chloride Carbon Dioxide BUN Creatinine Glucose POC Glucose 176 H 224 H 228 H Lactic Acid Calcium AST ALT Alkaline Phosphatase CK-MB (CK-2) CK-MB (CK-2) Rel Index Total Protein Albumin TSH Urine WBC (Auto) Salicylates 02/03/17 02/03/17 02/04/17 16:59 23:38 05:45 WBC RBC Hgb Hct MCV MCH RDW Plt Count Lymph % (Auto) [place] % (Auto) Eos % (Auto) [place] # Seg Neutrophils % Seg Neuts % (Manual) Lymphocytes % (Manual) Seg Neutrophils # Seg Neutrophils # Man Lymphocytes # (Manual) APTT POC ABG pH ABG pH POC ABG pCO2 POC ABG pO2 ABG pO2 ABG HCO3 ABG Base Excess ABG Hemoglobin VBG pH Oxyhemoglobin Sodium Potassium Chloride Carbon Dioxide BUN Creatinine Glucose POC Glucose 189 H 191 H 251 H Lactic Acid Calcium AST ALT Alkaline Phosphatase CK-MB (CK-2) CK-MB (CK-2) Rel Index Total Protein Albumin TSH Urine WBC (Auto) Salicylates 02/04/17 02/04/17 02/05/17 11:20 17:20 00:17 WBC RBC Hgb Hct MCV MCH RDW Plt Count Lymph % (Auto) [place] % (Auto) Eos % (Auto) [place] # Seg Neutrophils % Seg Neuts % (Manual) Lymphocytes % (Manual) Seg Neutrophils # Seg Neutrophils # Man Lymphocytes # (Manual) APTT POC ABG pH ABG pH POC ABG pCO2 POC ABG pO2 ABG pO2 ABG HCO3 ABG Base Excess ABG Hemoglobin VBG pH Oxyhemoglobin Sodium Potassium Chloride Carbon Dioxide BUN Creatinine Glucose POC Glucose 243 H 163 H 200 H Lactic Acid Calcium AST ALT Alkaline Phosphatase CK-MB (CK-2) CK-MB (CK-2) Rel Index Total Protein Albumin TSH Urine WBC (Auto) Salicylates 02/05/17 02/05/17 02/05/17 05:38 12:38 16:29 WBC RBC Hgb Hct MCV MCH RDW Plt Count Lymph % (Auto) [place] % (Auto) Eos % (Auto) [place] # Seg Neutrophils % Seg Neuts % (Manual) Lymphocytes % (Manual) Seg Neutrophils # Seg Neutrophils # Man Lymphocytes # (Manual) APTT POC ABG pH ABG pH POC ABG pCO2 POC ABG pO2 ABG pO2 ABG HCO3 ABG Base Excess ABG Hemoglobin VBG pH Oxyhemoglobin Sodium Potassium Chloride Carbon Dioxide BUN Creatinine Glucose POC Glucose 248 H 241 H 257 H Lactic Acid Calcium AST ALT Alkaline Phosphatase CK-MB (CK-2) CK-MB (CK-2) Rel Index Total Protein Albumin TSH Urine WBC (Auto) Salicylates 02/05/17 02/06/17 02/06/17 23:56 05:30 11:50 WBC RBC Hgb Hct MCV MCH RDW Plt Count Lymph % (Auto) [place] % (Auto) Eos % (Auto) [place] # Seg Neutrophils % Seg Neuts % (Manual) Lymphocytes % (Manual) Seg Neutrophils # Seg Neutrophils # Man Lymphocytes # (Manual) APTT POC ABG pH ABG pH POC ABG pCO2 POC ABG pO2 ABG pO2 ABG HCO3 ABG Base Excess ABG Hemoglobin VBG pH Oxyhemoglobin Sodium Potassium Chloride Carbon Dioxide BUN Creatinine Glucose POC Glucose 258 H 120 H 254 H Lactic Acid Calcium AST ALT Alkaline Phosphatase CK-MB (CK-2) CK-MB (CK-2) Rel Index Total Protein Albumin TSH Urine WBC (Auto) Salicylates 02/06/17 02/06/17 02/07/17 17:11 23:50 05:22 WBC RBC Hgb Hct MCV MCH RDW Plt Count Lymph % (Auto) [place] % (Auto) Eos % (Auto) [place] # Seg Neutrophils % Seg Neuts % (Manual) Lymphocytes % (Manual) Seg Neutrophils # Seg Neutrophils # Man Lymphocytes # (Manual) APTT POC ABG pH ABG pH POC ABG pCO2 POC ABG pO2 ABG pO2 ABG HCO3 ABG Base Excess ABG Hemoglobin VBG pH Oxyhemoglobin Sodium Potassium Chloride Carbon Dioxide BUN Creatinine Glucose POC Glucose 149 H 240 H 258 H Lactic Acid Calcium AST ALT Alkaline Phosphatase CK-MB (CK-2) CK-MB (CK-2) Rel Index Total Protein Albumin TSH Urine WBC (Auto) Salicylates 02/07/17 02/07/17 02/07/17 11:15 18:33 23:59 WBC RBC Hgb Hct MCV MCH RDW Plt Count Lymph % (Auto) [place] % (Auto) Eos % (Auto) [place] # Seg Neutrophils % Seg Neuts % (Manual) Lymphocytes % (Manual) Seg Neutrophils # Seg Neutrophils # Man Lymphocytes # (Manual) APTT POC ABG pH ABG pH POC ABG pCO2 POC ABG pO2 ABG pO2 ABG HCO3 ABG Base Excess ABG Hemoglobin VBG pH Oxyhemoglobin Sodium Potassium Chloride Carbon Dioxide BUN Creatinine Glucose POC Glucose 239 H 176 H 186 H Lactic Acid Calcium AST ALT Alkaline Phosphatase CK-MB (CK-2) CK-MB (CK-2) Rel Index Total Protein Albumin TSH Urine WBC (Auto) Salicylates 02/08/17 02/08/17 02/08/17 06:15 11:55 16:55 WBC RBC Hgb Hct MCV MCH RDW Plt Count Lymph % (Auto) [place] % (Auto) Eos % (Auto) [place] # Seg Neutrophils % Seg Neuts % (Manual) Lymphocytes % (Manual) Seg Neutrophils # Seg Neutrophils # Man Lymphocytes # (Manual) APTT POC ABG pH ABG pH POC ABG pCO2 POC ABG pO2 ABG pO2 ABG HCO3 ABG Base Excess ABG Hemoglobin VBG pH Oxyhemoglobin Sodium Potassium Chloride Carbon Dioxide BUN Creatinine Glucose POC Glucose 195 H 129 H 246 H Lactic Acid Calcium AST ALT Alkaline Phosphatase CK-MB (CK-2) CK-MB (CK-2) Rel Index Total Protein Albumin TSH Urine WBC (Auto) Salicylates 02/08/17 02/09/17 02/09/17 23:51 05:51 07:24 WBC 14.7 H RBC 3.39 L Hgb 8.9 L Hct 26.4 L MCV 78 L MCH 26 L RDW 18.4 H Plt Count 670 H Lymph % (Auto) 11.8 L [place] % (Auto) Eos % (Auto) [place] # Seg Neutrophils % 81.2 H Seg Neuts % (Manual) Lymphocytes % (Manual) Seg Neutrophils # 11.9 H Seg Neutrophils # Man Lymphocytes # (Manual) APTT POC ABG pH ABG pH POC ABG pCO2 POC ABG pO2 ABG pO2 ABG HCO3 ABG Base Excess ABG Hemoglobin VBG pH Oxyhemoglobin Sodium Potassium Chloride Carbon Dioxide BUN Creatinine Glucose POC Glucose 262 H 295 H Lactic Acid Calcium AST ALT Alkaline Phosphatase CK-MB (CK-2) CK-MB (CK-2) Rel Index Total Protein Albumin TSH Urine WBC (Auto) Salicylates 02/09/17 02/09/17 02/09/17 07:24 12:08 18:39 WBC RBC Hgb Hct MCV MCH RDW Plt Count Lymph % (Auto) [place] % (Auto) Eos % (Auto) [place] # Seg Neutrophils % Seg Neuts % (Manual) Lymphocytes % (Manual) Seg Neutrophils # Seg Neutrophils # Man Lymphocytes # (Manual) APTT POC ABG pH ABG pH POC ABG pCO2 POC ABG pO2 ABG pO2 ABG HCO3 ABG Base Excess ABG Hemoglobin VBG pH Oxyhemoglobin Sodium Potassium Chloride 95.5 L Carbon Dioxide BUN 52 H Creatinine Glucose 277 H POC Glucose 236 H 151 H Lactic Acid Calcium AST ALT Alkaline Phosphatase CK-MB (CK-2) CK-MB (CK-2) Rel Index Total Protein Albumin TSH Urine WBC (Auto) Salicylates 02/10/17 02/10/17 02/10/17 00:01 05:44 11:21 WBC RBC Hgb Hct MCV MCH RDW Plt Count Lymph % (Auto) [place] % (Auto) Eos % (Auto) [place] # Seg Neutrophils % Seg Neuts % (Manual) Lymphocytes % (Manual) Seg Neutrophils # Seg Neutrophils # Man Lymphocytes # (Manual) APTT POC ABG pH ABG pH POC ABG pCO2 POC ABG pO2 ABG pO2 ABG HCO3 ABG Base Excess ABG Hemoglobin VBG pH Oxyhemoglobin Sodium Potassium Chloride Carbon Dioxide BUN Creatinine Glucose POC Glucose 210 H 201 H 233 H Lactic Acid Calcium AST ALT Alkaline Phosphatase CK-MB (CK-2) CK-MB (CK-2) Rel Index Total Protein Albumin TSH Urine WBC (Auto) Salicylates 02/10/17 02/10/17 02/11/17 17:29 23:56 05:24 WBC RBC Hgb Hct MCV MCH RDW Plt Count Lymph % (Auto) [place] % (Auto) Eos % (Auto) [place] # Seg Neutrophils % Seg Neuts % (Manual) Lymphocytes % (Manual) Seg Neutrophils # Seg Neutrophils # Man Lymphocytes # (Manual) APTT POC ABG pH ABG pH POC ABG pCO2 POC ABG pO2 ABG pO2 ABG HCO3 ABG Base Excess ABG Hemoglobin VBG pH Oxyhemoglobin Sodium Potassium Chloride Carbon Dioxide BUN Creatinine Glucose POC Glucose 167 H 191 H 135 H Lactic Acid Calcium AST ALT Alkaline Phosphatase CK-MB (CK-2) CK-MB (CK-2) Rel Index Total Protein Albumin TSH Urine WBC (Auto) Salicylates 02/11/17 02/11/17 02/11/17 12:25 17:03 23:59 WBC RBC Hgb Hct MCV MCH RDW Plt Count Lymph % (Auto) [place] % (Auto) Eos % (Auto) [place] # Seg Neutrophils % Seg Neuts % (Manual) Lymphocytes % (Manual) Seg Neutrophils # Seg Neutrophils # Man Lymphocytes # (Manual) APTT POC ABG pH ABG pH POC ABG pCO2 POC ABG pO2 ABG pO2 ABG HCO3 ABG Base Excess ABG Hemoglobin VBG pH Oxyhemoglobin Sodium Potassium Chloride Carbon Dioxide BUN Creatinine Glucose POC Glucose 275 H 172 H 215 H Lactic Acid Calcium AST ALT Alkaline Phosphatase CK-MB (CK-2) CK-MB (CK-2) Rel Index Total Protein Albumin TSH Urine WBC (Auto) Salicylates 02/12/17 02/12/17 02/12/17 05:39 11:33 17:55 WBC RBC Hgb Hct MCV MCH RDW Plt Count Lymph % (Auto) [place] % (Auto) Eos % (Auto) [place] # Seg Neutrophils % Seg Neuts % (Manual) Lymphocytes % (Manual) Seg Neutrophils # Seg Neutrophils # Man Lymphocytes # (Manual) APTT POC ABG pH ABG pH POC ABG pCO2 POC ABG pO2 ABG pO2 ABG HCO3 ABG Base Excess ABG Hemoglobin VBG pH Oxyhemoglobin Sodium Potassium Chloride Carbon Dioxide BUN Creatinine Glucose POC Glucose 261 H 217 H 172 H Lactic Acid Calcium AST ALT Alkaline Phosphatase CK-MB (CK-2) CK-MB (CK-2) Rel Index Total Protein Albumin TSH Urine WBC (Auto) Salicylates 02/13/17 02/13/17 02/13/17 00:25 06:46 11:26 WBC RBC Hgb Hct MCV MCH RDW Plt Count Lymph % (Auto) [place] % (Auto) Eos % (Auto) [place] # Seg Neutrophils % Seg Neuts % (Manual) Lymphocytes % (Manual) Seg Neutrophils # Seg Neutrophils # Man Lymphocytes # (Manual) APTT POC ABG pH ABG pH POC ABG pCO2 POC ABG pO2 ABG pO2 ABG HCO3 ABG Base Excess ABG Hemoglobin VBG pH Oxyhemoglobin Sodium Potassium Chloride Carbon Dioxide BUN Creatinine Glucose POC Glucose 207 H 219 H 231 H Lactic Acid Calcium AST ALT Alkaline Phosphatase CK-MB (CK-2) CK-MB (CK-2) Rel Index Total Protein Albumin TSH Urine WBC (Auto) Salicylates 02/13/17 02/13/17 02/14/17 17:12 23:44 05:44 WBC RBC Hgb Hct MCV MCH RDW Plt Count Lymph % (Auto) [place] % (Auto) Eos % (Auto) [place] # Seg Neutrophils % Seg Neuts % (Manual) Lymphocytes % (Manual) Seg Neutrophils # Seg Neutrophils # Man Lymphocytes # (Manual) APTT POC ABG pH ABG pH POC ABG pCO2 POC ABG pO2 ABG pO2 ABG HCO3 ABG Base Excess ABG Hemoglobin VBG pH Oxyhemoglobin Sodium Potassium Chloride Carbon Dioxide BUN Creatinine Glucose POC Glucose 190 H 256 H 184 H Lactic Acid Calcium AST ALT Alkaline Phosphatase CK-MB (CK-2) CK-MB (CK-2) Rel Index Total Protein Albumin TSH Urine WBC (Auto) Salicylates 02/14/17 02/14/17 02/14/17 12:21 17:57 23:18 WBC RBC Hgb Hct MCV MCH RDW Plt Count Lymph % (Auto) [place] % (Auto) Eos % (Auto) [place] # Seg Neutrophils % Seg Neuts % (Manual) Lymphocytes % (Manual) Seg Neutrophils # Seg Neutrophils # Man Lymphocytes # (Manual) APTT POC ABG pH ABG pH POC ABG pCO2 POC ABG pO2 ABG pO2 ABG HCO3 ABG Base Excess ABG Hemoglobin VBG pH Oxyhemoglobin Sodium Potassium Chloride Carbon Dioxide BUN Creatinine Glucose POC Glucose 233 H 155 H 165 H Lactic Acid Calcium AST ALT Alkaline Phosphatase CK-MB (CK-2) CK-MB (CK-2) Rel Index Total Protein Albumin TSH Urine WBC (Auto) Salicylates 02/15/17 02/15/17 02/15/17 05:33 11:45 17:20 WBC RBC Hgb Hct MCV MCH RDW Plt Count Lymph % (Auto) [place] % (Auto) Eos % (Auto) [place] # Seg Neutrophils % Seg Neuts % (Manual) Lymphocytes % (Manual) Seg Neutrophils # Seg Neutrophils # Man Lymphocytes # (Manual) APTT POC ABG pH ABG pH POC ABG pCO2 POC ABG pO2 ABG pO2 ABG HCO3 ABG Base Excess ABG Hemoglobin VBG pH Oxyhemoglobin Sodium Potassium Chloride Carbon Dioxide BUN Creatinine Glucose POC Glucose 239 H 130 H 189 H Lactic Acid Calcium AST ALT Alkaline Phosphatase CK-MB (CK-2) CK-MB (CK-2) Rel Index Total Protein Albumin TSH Urine WBC (Auto) Salicylates 02/16/17 02/16/17 02/16/17 00:14 05:09 12:31 WBC RBC Hgb Hct MCV MCH RDW Plt Count Lymph % (Auto) [place] % (Auto) Eos % (Auto) [place] # Seg Neutrophils % Seg Neuts % (Manual) Lymphocytes % (Manual) Seg Neutrophils # Seg Neutrophils # Man Lymphocytes # (Manual) APTT POC ABG pH ABG pH POC ABG pCO2 POC ABG pO2 ABG pO2 ABG HCO3 ABG Base Excess ABG Hemoglobin VBG pH Oxyhemoglobin Sodium Potassium Chloride Carbon Dioxide BUN Creatinine Glucose POC Glucose 197 H 226 H 178 H Lactic Acid Calcium AST ALT Alkaline Phosphatase CK-MB (CK-2) CK-MB (CK-2) Rel Index Total Protein Albumin TSH Urine WBC (Auto) Salicylates 02/16/17 02/16/17 02/17/17 16:35 23:49 05:37 WBC RBC Hgb Hct MCV MCH RDW Plt Count Lymph % (Auto) [place] % (Auto) Eos % (Auto) [place] # Seg Neutrophils % Seg Neuts % (Manual) Lymphocytes % (Manual) Seg Neutrophils # Seg Neutrophils # Man Lymphocytes # (Manual) APTT POC ABG pH ABG pH POC ABG pCO2 POC ABG pO2 ABG pO2 ABG HCO3 ABG Base Excess ABG Hemoglobin VBG pH Oxyhemoglobin Sodium Potassium Chloride Carbon Dioxide BUN Creatinine Glucose POC Glucose 174 H 62 L 153 H Lactic Acid Calcium AST ALT Alkaline Phosphatase CK-MB (CK-2) CK-MB (CK-2) Rel Index Total Protein Albumin TSH Urine WBC (Auto) Salicylates 02/17/17 02/17/17 02/17/17 11:39 17:02 22:24 WBC RBC Hgb Hct MCV MCH RDW Plt Count Lymph % (Auto) Bradford % (Auto) Eos % (Auto) Bradford # Seg Neutrophils % Seg Neuts % (Manual) Lymphocytes % (Manual) Seg Neutrophils # Seg Neutrophils # Man Lymphocytes # (Manual) APTT POC ABG pH ABG pH POC ABG pCO2 POC ABG pO2 ABG pO2 ABG HCO3 ABG Base Excess ABG Hemoglobin VBG pH Oxyhemoglobin Sodium Potassium Chloride Carbon Dioxide BUN Creatinine Glucose POC Glucose 231 H 112 H 116 H Lactic Acid Calcium AST ALT Alkaline Phosphatase CK-MB (CK-2) CK-MB (CK-2) Rel Index Total Protein Albumin TSH Urine WBC (Auto) Salicylates 02/18/17 02/19/17 02/19/17 15:34 05:09 07:57 WBC RBC Hgb Hct MCV MCH RDW Plt Count Lymph % (Auto) Bradford % (Auto) Eos % (Auto) Bradford # Seg Neutrophils % Seg Neuts % (Manual) Lymphocytes % (Manual) Seg Neutrophils # Seg Neutrophils # Man Lymphocytes # (Manual) APTT POC ABG pH ABG pH POC ABG pCO2 POC ABG pO2 ABG pO2 ABG HCO3 ABG Base Excess ABG Hemoglobin VBG pH Oxyhemoglobin Sodium Potassium Chloride Carbon Dioxide BUN Creatinine Glucose POC Glucose 215 H 218 H 283 H Lactic Acid Calcium AST ALT Alkaline Phosphatase CK-MB (CK-2) CK-MB (CK-2) Rel Index Total Protein Albumin TSH Urine WBC (Auto) Salicylates 02/19/17 02/19/17 02/20/17 14:49 22:10 05:10 WBC RBC Hgb Hct MCV MCH RDW Plt Count Lymph % (Auto) [place] % (Auto) Eos % (Auto) [place] # Seg Neutrophils % Seg Neuts % (Manual) Lymphocytes % (Manual) Seg Neutrophils # Seg Neutrophils # Man Lymphocytes # (Manual) APTT POC ABG pH ABG pH POC ABG pCO2 POC ABG pO2 ABG pO2 ABG HCO3 ABG Base Excess ABG Hemoglobin VBG pH Oxyhemoglobin Sodium Potassium Chloride Carbon Dioxide BUN Creatinine Glucose POC Glucose 290 H 169 H 209 H Lactic Acid Calcium AST ALT Alkaline Phosphatase CK-MB (CK-2) CK-MB (CK-2) Rel Index Total Protein Albumin TSH Urine WBC (Auto) Salicylates 02/20/17 02/20/17 02/21/17 15:05 21:52 02:00 WBC RBC Hgb Hct MCV MCH RDW Plt Count Lymph % (Auto) [place] % (Auto) Eos % (Auto) [place] # Seg Neutrophils % Seg Neuts % (Manual) Lymphocytes % (Manual) Seg Neutrophils # Seg Neutrophils # Man Lymphocytes # (Manual) APTT POC ABG pH ABG pH POC ABG pCO2 POC ABG pO2 ABG pO2 ABG HCO3 ABG Base Excess ABG Hemoglobin VBG pH Oxyhemoglobin Sodium Potassium Chloride Carbon Dioxide BUN Creatinine Glucose POC Glucose 172 H 209 H 216 H Lactic Acid Calcium AST ALT Alkaline Phosphatase CK-MB (CK-2) CK-MB (CK-2) Rel Index Total Protein Albumin TSH Urine WBC (Auto) Salicylates 02/21/17 02/21/17 02/21/17 04:54 14:43 17:47 WBC RBC Hgb Hct MCV MCH RDW Plt Count Lymph % (Auto) [place] % (Auto) Eos % (Auto) [place] # Seg Neutrophils % Seg Neuts % (Manual) Lymphocytes % (Manual) Seg Neutrophils # Seg Neutrophils # Man Lymphocytes # (Manual) APTT POC ABG pH ABG pH POC ABG pCO2 POC ABG pO2 ABG pO2 ABG HCO3 ABG Base Excess ABG Hemoglobin VBG pH Oxyhemoglobin Sodium Potassium Chloride Carbon Dioxide BUN Creatinine Glucose POC Glucose 227 H 290 H 220 H Lactic Acid Calcium AST ALT Alkaline Phosphatase CK-MB (CK-2) CK-MB (CK-2) Rel Index Total Protein Albumin TSH Urine WBC (Auto) Salicylates 02/21/17 02/22/17 02/22/17 22:02 04:52 15:25 WBC RBC Hgb Hct MCV MCH RDW Plt Count Lymph % (Auto) [place] % (Auto) Eos % (Auto) [place] # Seg Neutrophils % Seg Neuts % (Manual) Lymphocytes % (Manual) Seg Neutrophils # Seg Neutrophils # Man Lymphocytes # (Manual) APTT POC ABG pH ABG pH POC ABG pCO2 POC ABG pO2 ABG pO2 ABG HCO3 ABG Base Excess ABG Hemoglobin VBG pH Oxyhemoglobin Sodium Potassium Chloride Carbon Dioxide BUN Creatinine Glucose POC Glucose 246 H 212 H 236 H Lactic Acid Calcium AST ALT Alkaline Phosphatase CK-MB (CK-2) CK-MB (CK-2) Rel Index Total Protein Albumin TSH Urine WBC (Auto) Salicylates 02/22/17 02/23/17 02/23/17 21:33 06:04 10:00 WBC RBC Hgb Hct MCV MCH RDW Plt Count Lymph % (Auto) [place] % (Auto) Eos % (Auto) [place] # Seg Neutrophils % Seg Neuts % (Manual) Lymphocytes % (Manual) Seg Neutrophils # Seg Neutrophils # Man Lymphocytes # (Manual) APTT POC ABG pH ABG pH POC ABG pCO2 POC ABG pO2 ABG pO2 ABG HCO3 ABG Base Excess ABG Hemoglobin VBG pH Oxyhemoglobin Sodium Potassium Chloride Carbon Dioxide BUN Creatinine Glucose POC Glucose 255 H 208 H 174 H Lactic Acid Calcium AST ALT Alkaline Phosphatase CK-MB (CK-2) CK-MB (CK-2) Rel Index Total Protein Albumin TSH Urine WBC (Auto) Salicylates 02/23/17 02/23/17 02/23/17 12:52 17:15 21:51 WBC RBC Hgb Hct MCV MCH RDW Plt Count Lymph % (Auto) [place] % (Auto) Eos % (Auto) [place] # Seg Neutrophils % Seg Neuts % (Manual) Lymphocytes % (Manual) Seg Neutrophils # Seg Neutrophils # Man Lymphocytes # (Manual) APTT POC ABG pH ABG pH POC ABG pCO2 POC ABG pO2 ABG pO2 ABG HCO3 ABG Base Excess ABG Hemoglobin VBG pH Oxyhemoglobin Sodium Potassium Chloride Carbon Dioxide BUN Creatinine Glucose POC Glucose 203 H 269 H 205 H Lactic Acid Calcium AST ALT Alkaline Phosphatase CK-MB (CK-2) CK-MB (CK-2) Rel Index Total Protein Albumin TSH Urine WBC (Auto) Salicylates 02/24/17 02/24/17 02/24/17 10:23 17:45 21:24 WBC RBC Hgb Hct MCV MCH RDW Plt Count Lymph % (Auto) [place] % (Auto) Eos % (Auto) [place] # Seg Neutrophils % Seg Neuts % (Manual) Lymphocytes % (Manual) Seg Neutrophils # Seg Neutrophils # Man Lymphocytes # (Manual) APTT POC ABG pH ABG pH POC ABG pCO2 POC ABG pO2 ABG pO2 ABG HCO3 ABG Base Excess ABG Hemoglobin VBG pH Oxyhemoglobin Sodium Potassium Chloride Carbon Dioxide BUN Creatinine Glucose POC Glucose 280 H 239 H 254 H Lactic Acid Calcium AST ALT Alkaline Phosphatase CK-MB (CK-2) CK-MB (CK-2) Rel Index Total Protein Albumin TSH Urine WBC (Auto) Salicylates 02/25/17 02/25/17 02/25/17 02:12 05:17 14:32 WBC RBC Hgb Hct MCV MCH RDW Plt Count Lymph % (Auto) [place] % (Auto) Eos % (Auto) [place] # Seg Neutrophils % Seg Neuts % (Manual) Lymphocytes % (Manual) Seg Neutrophils # Seg Neutrophils # Man Lymphocytes # (Manual) APTT POC ABG pH ABG pH POC ABG pCO2 POC ABG pO2 ABG pO2 ABG HCO3 ABG Base Excess ABG Hemoglobin VBG pH Oxyhemoglobin Sodium Potassium Chloride Carbon Dioxide BUN Creatinine Glucose POC Glucose 296 H 332 H 353 H Lactic Acid Calcium AST ALT Alkaline Phosphatase CK-MB (CK-2) CK-MB (CK-2) Rel Index Total Protein Albumin TSH Urine WBC (Auto) Salicylates 02/25/17 02/26/17 02/26/17 22:14 00:37 05:52 WBC RBC Hgb Hct MCV MCH RDW Plt Count Lymph % (Auto) [place] % (Auto) Eos % (Auto) [place] # Seg Neutrophils % Seg Neuts % (Manual) Lymphocytes % (Manual) Seg Neutrophils # Seg Neutrophils # Man Lymphocytes # (Manual) APTT POC ABG pH ABG pH POC ABG pCO2 POC ABG pO2 ABG pO2 ABG HCO3 ABG Base Excess ABG Hemoglobin VBG pH Oxyhemoglobin Sodium Potassium Chloride Carbon Dioxide BUN Creatinine Glucose POC Glucose 201 H 233 H 269 H Lactic Acid Calcium AST ALT Alkaline Phosphatase CK-MB (CK-2) CK-MB (CK-2) Rel Index Total Protein Albumin TSH Urine WBC (Auto) Salicylates 02/26/17 02/26/17 02/26/17 11:48 13:49 21:26 WBC RBC Hgb Hct MCV MCH RDW Plt Count Lymph % (Auto) [place] % (Auto) Eos % (Auto) [place] # Seg Neutrophils % Seg Neuts % (Manual) Lymphocytes % (Manual) Seg Neutrophils # Seg Neutrophils # Man Lymphocytes # (Manual) APTT POC ABG pH ABG pH POC ABG pCO2 POC ABG pO2 ABG pO2 ABG HCO3 ABG Base Excess ABG Hemoglobin VBG pH Oxyhemoglobin Sodium Potassium Chloride Carbon Dioxide BUN Creatinine Glucose POC Glucose 333 H 322 H 244 H Lactic Acid Calcium AST ALT Alkaline Phosphatase CK-MB (CK-2) CK-MB (CK-2) Rel Index Total Protein Albumin TSH Urine WBC (Auto) Salicylates 02/27/17 02/27/17 02/27/17 05:27 13:51 21:48 WBC RBC Hgb Hct MCV MCH RDW Plt Count Lymph % (Auto) [place] % (Auto) Eos % (Auto) [place] # Seg Neutrophils % Seg Neuts % (Manual) Lymphocytes % (Manual) Seg Neutrophils # Seg Neutrophils # Man Lymphocytes # (Manual) APTT POC ABG pH ABG pH POC ABG pCO2 POC ABG pO2 ABG pO2 ABG HCO3 ABG Base Excess ABG Hemoglobin VBG pH Oxyhemoglobin Sodium Potassium Chloride Carbon Dioxide BUN Creatinine Glucose POC Glucose 217 H 239 H 254 H Lactic Acid Calcium AST ALT Alkaline Phosphatase CK-MB (CK-2) CK-MB (CK-2) Rel Index Total Protein Albumin TSH Urine WBC (Auto) Salicylates 02/28/17 02/28/17 02/28/17 05:38 11:00 19:44 WBC RBC Hgb Hct MCV MCH RDW Plt Count Lymph % (Auto) [place] % (Auto) Eos % (Auto) [place] # Seg Neutrophils % Seg Neuts % (Manual) Lymphocytes % (Manual) Seg Neutrophils # Seg Neutrophils # Man Lymphocytes # (Manual) APTT POC ABG pH ABG pH POC ABG pCO2 POC ABG pO2 ABG pO2 ABG HCO3 ABG Base Excess ABG Hemoglobin VBG pH Oxyhemoglobin Sodium Potassium Chloride Carbon Dioxide BUN Creatinine Glucose POC Glucose 325 H 203 H 116 H Lactic Acid Calcium AST ALT Alkaline Phosphatase CK-MB (CK-2) CK-MB (CK-2) Rel Index Total Protein Albumin TSH Urine WBC (Auto) Salicylates 03/01/17 03/01/17 03/01/17 00:08 05:31 12:17 WBC RBC Hgb Hct MCV MCH RDW Plt Count Lymph % (Auto) [place] % (Auto) Eos % (Auto) [place] # Seg Neutrophils % Seg Neuts % (Manual) Lymphocytes % (Manual) Seg Neutrophils # Seg Neutrophils # Man Lymphocytes # (Manual) APTT POC ABG pH ABG pH POC ABG pCO2 POC ABG pO2 ABG pO2 ABG HCO3 ABG Base Excess ABG Hemoglobin VBG pH Oxyhemoglobin Sodium Potassium Chloride Carbon Dioxide BUN Creatinine Glucose POC Glucose 202 H 183 H 184 H Lactic Acid Calcium AST ALT Alkaline Phosphatase CK-MB (CK-2) CK-MB (CK-2) Rel Index Total Protein Albumin TSH Urine WBC (Auto) Salicylates 03/02/17 03/02/17 03/02/17 00:12 05:58 18:22 WBC RBC Hgb Hct MCV MCH RDW Plt Count Lymph % (Auto) [place] % (Auto) Eos % (Auto) [place] # Seg Neutrophils % Seg Neuts % (Manual) Lymphocytes % (Manual) Seg Neutrophils # Seg Neutrophils # Man Lymphocytes # (Manual) APTT POC ABG pH ABG pH POC ABG pCO2 POC ABG pO2 ABG pO2 ABG HCO3 ABG Base Excess ABG Hemoglobin VBG pH Oxyhemoglobin Sodium Potassium Chloride Carbon Dioxide BUN Creatinine Glucose POC Glucose 117 H 176 H 156 H Lactic Acid Calcium AST ALT Alkaline Phosphatase CK-MB (CK-2) CK-MB (CK-2) Rel Index Total Protein Albumin TSH Urine WBC (Auto) Salicylates 03/02/17 03/03/17 03/03/17 23:51 05:44 11:32 WBC RBC Hgb Hct MCV MCH RDW Plt Count Lymph % (Auto) [place] % (Auto) Eos % (Auto) [place] # Seg Neutrophils % Seg Neuts % (Manual) Lymphocytes % (Manual) Seg Neutrophils # Seg Neutrophils # Man Lymphocytes # (Manual) APTT POC ABG pH ABG pH POC ABG pCO2 POC ABG pO2 ABG pO2 ABG HCO3 ABG Base Excess ABG Hemoglobin VBG pH Oxyhemoglobin Sodium Potassium Chloride Carbon Dioxide BUN Creatinine Glucose POC Glucose 211 H 117 H 133 H Lactic Acid Calcium AST ALT Alkaline Phosphatase CK-MB (CK-2) CK-MB (CK-2) Rel Index Total Protein Albumin TSH Urine WBC (Auto) Salicylates 03/03/17 03/03/17 03/04/17 17:43 23:17 05:30 WBC RBC Hgb Hct MCV MCH RDW Plt Count Lymph % (Auto) [place] % (Auto) Eos % (Auto) [place] # Seg Neutrophils % Seg Neuts % (Manual) Lymphocytes % (Manual) Seg Neutrophils # Seg Neutrophils # Man Lymphocytes # (Manual) APTT POC ABG pH ABG pH POC ABG pCO2 POC ABG pO2 ABG pO2 ABG HCO3 ABG Base Excess ABG Hemoglobin VBG pH Oxyhemoglobin Sodium Potassium Chloride Carbon Dioxide BUN Creatinine Glucose POC Glucose 206 H 170 H 126 H Lactic Acid Calcium AST ALT Alkaline Phosphatase CK-MB (CK-2) CK-MB (CK-2) Rel Index Total Protein Albumin TSH Urine WBC (Auto) Salicylates 03/04/17 03/04/17 03/05/17 12:17 17:27 05:20 WBC RBC Hgb Hct MCV MCH RDW Plt Count Lymph % (Auto) [place] % (Auto) Eos % (Auto) [place] # Seg Neutrophils % Seg Neuts % (Manual) Lymphocytes % (Manual) Seg Neutrophils # Seg Neutrophils # Man Lymphocytes # (Manual) APTT POC ABG pH ABG pH POC ABG pCO2 POC ABG pO2 ABG pO2 ABG HCO3 ABG Base Excess ABG Hemoglobin VBG pH Oxyhemoglobin Sodium Potassium Chloride Carbon Dioxide BUN Creatinine Glucose POC Glucose 135 H 121 H 185 H Lactic Acid Calcium AST ALT Alkaline Phosphatase CK-MB (CK-2) CK-MB (CK-2) Rel Index Total Protein Albumin TSH Urine WBC (Auto) Salicylates 03/05/17 03/06/17 03/06/17 11:50 11:52 17:34 WBC RBC Hgb Hct MCV MCH RDW Plt Count Lymph % (Auto) [place] % (Auto) Eos % (Auto) [place] # Seg Neutrophils % Seg Neuts % (Manual) Lymphocytes % (Manual) Seg Neutrophils # Seg Neutrophils # Man Lymphocytes # (Manual) APTT POC ABG pH ABG pH POC ABG pCO2 POC ABG pO2 ABG pO2 ABG HCO3 ABG Base Excess ABG Hemoglobin VBG pH Oxyhemoglobin Sodium Potassium Chloride Carbon Dioxide BUN Creatinine Glucose POC Glucose 116 H 133 H 181 H Lactic Acid Calcium AST ALT Alkaline Phosphatase CK-MB (CK-2) CK-MB (CK-2) Rel Index Total Protein Albumin TSH Urine WBC (Auto) Salicylates 03/07/17 03/07/17 03/07/17 05:21 11:36 17:49 WBC RBC Hgb Hct MCV MCH RDW Plt Count Lymph % (Auto) [place] % (Auto) Eos % (Auto) [place] # Seg Neutrophils % Seg Neuts % (Manual) Lymphocytes % (Manual) Seg Neutrophils # Seg Neutrophils # Man Lymphocytes # (Manual) APTT POC ABG pH ABG pH POC ABG pCO2 POC ABG pO2 ABG pO2 ABG HCO3 ABG Base Excess ABG Hemoglobin VBG pH Oxyhemoglobin Sodium Potassium Chloride Carbon Dioxide BUN Creatinine Glucose POC Glucose 159 H 137 H 158 H Lactic Acid Calcium AST ALT Alkaline Phosphatase CK-MB (CK-2) CK-MB (CK-2) Rel Index Total Protein Albumin TSH Urine WBC (Auto) Salicylates 03/08/17 03/08/17 03/08/17 05:51 13:58 23:50 WBC RBC Hgb Hct MCV MCH RDW Plt Count Lymph % (Auto) [place] % (Auto) Eos % (Auto) [place] # Seg Neutrophils % Seg Neuts % (Manual) Lymphocytes % (Manual) Seg Neutrophils # Seg Neutrophils # Man Lymphocytes # (Manual) APTT POC ABG pH ABG pH POC ABG pCO2 POC ABG pO2 ABG pO2 ABG HCO3 ABG Base Excess ABG Hemoglobin VBG pH Oxyhemoglobin Sodium Potassium Chloride Carbon Dioxide BUN Creatinine Glucose POC Glucose 122 H 182 H 114 H Lactic Acid Calcium AST ALT Alkaline Phosphatase CK-MB (CK-2) CK-MB (CK-2) Rel Index Total Protein Albumin TSH Urine WBC (Auto) Salicylates 03/09/17 03/09/17 03/09/17 05:21 05:51 05:51 WBC RBC 3.61 L Hgb 9.5 L Hct 28.3 L MCV 79 L MCH 26 L RDW 17.8 H Plt Count Lymph % (Auto) [place] % (Auto) Eos % (Auto) [place] # Seg Neutrophils % Seg Neuts % (Manual) Lymphocytes % (Manual) Seg Neutrophils # Seg Neutrophils # Man Lymphocytes # (Manual) APTT POC ABG pH ABG pH POC ABG pCO2 POC ABG pO2 ABG pO2 ABG HCO3 ABG Base Excess ABG Hemoglobin VBG pH Oxyhemoglobin Sodium 134 L Potassium Chloride 95.5 L Carbon Dioxide BUN 33 H Creatinine 0.5 L Glucose 143 H POC Glucose 153 H Lactic Acid Calcium AST ALT Alkaline Phosphatase CK-MB (CK-2) CK-MB (CK-2) Rel Index Total Protein Albumin TSH Urine WBC (Auto) Salicylates 03/09/17 03/09/17 03/09/17 12:10 18:13 21:00 WBC RBC Hgb Hct MCV MCH RDW Plt Count Lymph % (Auto) [place] % (Auto) Eos % (Auto) [place] # Seg Neutrophils % Seg Neuts % (Manual) Lymphocytes % (Manual) Seg Neutrophils # Seg Neutrophils # Man Lymphocytes # (Manual) APTT POC ABG pH ABG pH POC ABG pCO2 POC ABG pO2 ABG pO2 ABG HCO3 ABG Base Excess ABG Hemoglobin VBG pH Oxyhemoglobin Sodium Potassium Chloride Carbon Dioxide BUN Creatinine Glucose POC Glucose 203 H 221 H 198 H Lactic Acid Calcium AST ALT Alkaline Phosphatase CK-MB (CK-2) CK-MB (CK-2) Rel Index Total Protein Albumin TSH Urine WBC (Auto) Salicylates 03/09/17 03/10/17 03/10/17 23:58 05:09 05:09 WBC RBC Hgb 10.3 L Hct 30.5 L MCV 78 L MCH 26 L RDW 17.9 H Plt Count Lymph % (Auto) [place] % (Auto) 10.0 H Eos % (Auto) 6.0 H [place] # Seg Neutrophils % Seg Neuts % (Manual) Lymphocytes % (Manual) Seg Neutrophils # Seg Neutrophils # Man Lymphocytes # (Manual) APTT POC ABG pH ABG pH POC ABG pCO2 POC ABG pO2 ABG pO2 ABG HCO3 ABG Base Excess ABG Hemoglobin VBG pH Oxyhemoglobin Sodium 132 L Potassium Chloride 92.2 L Carbon Dioxide BUN 33 H Creatinine 0.5 L Glucose 50 L POC Glucose 167 H Lactic Acid Calcium AST ALT Alkaline Phosphatase CK-MB (CK-2) CK-MB (CK-2) Rel Index Total Protein Albumin TSH Urine WBC (Auto) Salicylates 03/10/17 03/10/17 03/10/17 05:33 05:34 11:48 WBC RBC Hgb Hct MCV MCH RDW Plt Count Lymph % (Auto) [place] % (Auto) Eos % (Auto) [place] # Seg Neutrophils % Seg Neuts % (Manual) Lymphocytes % (Manual) Seg Neutrophils # Seg Neutrophils # Man Lymphocytes # (Manual) APTT POC ABG pH ABG pH POC ABG pCO2 POC ABG pO2 ABG pO2 ABG HCO3 ABG Base Excess ABG Hemoglobin VBG pH Oxyhemoglobin Sodium Potassium Chloride Carbon Dioxide BUN Creatinine Glucose POC Glucose 52 L 53 L 148 H Lactic Acid Calcium AST ALT Alkaline Phosphatase CK-MB (CK-2) CK-MB (CK-2) Rel Index Total Protein Albumin TSH Urine WBC (Auto) Salicylates 03/10/17 03/10/17 03/11/17 17:53 23:47 05:18 WBC RBC Hgb Hct MCV MCH RDW Plt Count Lymph % (Auto) [place] % (Auto) Eos % (Auto) [place] # Seg Neutrophils % Seg Neuts % (Manual) Lymphocytes % (Manual) Seg Neutrophils # Seg Neutrophils # Man Lymphocytes # (Manual) APTT POC ABG pH ABG pH POC ABG pCO2 POC ABG pO2 ABG pO2 ABG HCO3 ABG Base Excess ABG Hemoglobin VBG pH Oxyhemoglobin Sodium Potassium Chloride Carbon Dioxide BUN Creatinine Glucose POC Glucose 189 H 398 H 126 H Lactic Acid Calcium AST ALT Alkaline Phosphatase CK-MB (CK-2) CK-MB (CK-2) Rel Index Total Protein Albumin TSH Urine WBC (Auto) Salicylates 03/11/17 03/11/17 03/11/17 11:53 17:30 23:10 WBC RBC Hgb Hct MCV MCH RDW Plt Count Lymph % (Auto) [place] % (Auto) Eos % (Auto) [place] # Seg Neutrophils % Seg Neuts % (Manual) Lymphocytes % (Manual) Seg Neutrophils # Seg Neutrophils # Man Lymphocytes # (Manual) APTT POC ABG pH ABG pH POC ABG pCO2 POC ABG pO2 ABG pO2 ABG HCO3 ABG Base Excess ABG Hemoglobin VBG pH Oxyhemoglobin Sodium Potassium Chloride Carbon Dioxide BUN Creatinine Glucose POC Glucose 198 H 142 H 244 H Lactic Acid Calcium AST ALT Alkaline Phosphatase CK-MB (CK-2) CK-MB (CK-2) Rel Index Total Protein Albumin TSH Urine WBC (Auto) Salicylates 03/12/17 03/12/17 03/12/17 04:36 11:49 17:23 WBC RBC Hgb Hct MCV MCH RDW Plt Count Lymph % (Auto) [place] % (Auto) Eos % (Auto) [place] # Seg Neutrophils % Seg Neuts % (Manual) Lymphocytes % (Manual) Seg Neutrophils # Seg Neutrophils # Man Lymphocytes # (Manual) APTT POC ABG pH ABG pH POC ABG pCO2 POC ABG pO2 ABG pO2 ABG HCO3 ABG Base Excess ABG Hemoglobin VBG pH Oxyhemoglobin Sodium Potassium Chloride Carbon Dioxide BUN Creatinine Glucose POC Glucose 205 H 197 H 209 H Lactic Acid Calcium AST ALT Alkaline Phosphatase CK-MB (CK-2) CK-MB (CK-2) Rel Index Total Protein Albumin TSH Urine WBC (Auto) Salicylates 03/12/17 03/13/17 03/13/17 23:51 05:32 11:43 WBC RBC Hgb Hct MCV MCH RDW Plt Count Lymph % (Auto) [place] % (Auto) Eos % (Auto) [place] # Seg Neutrophils % Seg Neuts % (Manual) Lymphocytes % (Manual) Seg Neutrophils # Seg Neutrophils # Man Lymphocytes # (Manual) APTT POC ABG pH ABG pH POC ABG pCO2 POC ABG pO2 ABG pO2 ABG HCO3 ABG Base Excess ABG Hemoglobin VBG pH Oxyhemoglobin Sodium Potassium Chloride Carbon Dioxide BUN Creatinine Glucose POC Glucose 210 H 154 H 164 H Lactic Acid Calcium AST ALT Alkaline Phosphatase CK-MB (CK-2) CK-MB (CK-2) Rel Index Total Protein Albumin TSH Urine WBC (Auto) Salicylates 03/13/17 03/13/17 03/14/17 17:11 23:26 05:42 WBC RBC Hgb Hct MCV MCH RDW Plt Count Lymph % (Auto) [place] % (Auto) Eos % (Auto) [place] # Seg Neutrophils % Seg Neuts % (Manual) Lymphocytes % (Manual) Seg Neutrophils # Seg Neutrophils # Man Lymphocytes # (Manual) APTT POC ABG pH ABG pH POC ABG pCO2 POC ABG pO2 ABG pO2 ABG HCO3 ABG Base Excess ABG Hemoglobin VBG pH Oxyhemoglobin Sodium Potassium Chloride Carbon Dioxide BUN Creatinine Glucose POC Glucose 195 H 240 H 230 H Lactic Acid Calcium AST ALT Alkaline Phosphatase CK-MB (CK-2) CK-MB (CK-2) Rel Index Total Protein Albumin TSH Urine WBC (Auto) Salicylates 03/14/17 03/14/17 03/14/17 14:04 17:34 23:42 WBC RBC Hgb Hct MCV MCH RDW Plt Count Lymph % (Auto) [place] % (Auto) Eos % (Auto) [place] # Seg Neutrophils % Seg Neuts % (Manual) Lymphocytes % (Manual) Seg Neutrophils # Seg Neutrophils # Man Lymphocytes # (Manual) APTT POC ABG pH ABG pH POC ABG pCO2 POC ABG pO2 ABG pO2 ABG HCO3 ABG Base Excess ABG Hemoglobin VBG pH Oxyhemoglobin Sodium Potassium Chloride Carbon Dioxide BUN Creatinine Glucose POC Glucose 227 H 186 H 225 H Lactic Acid Calcium AST ALT Alkaline Phosphatase CK-MB (CK-2) CK-MB (CK-2) Rel Index Total Protein Albumin TSH Urine WBC (Auto) Salicylates 03/15/17 03/15/17 03/15/17 05:21 17:13 21:37 WBC RBC Hgb Hct MCV MCH RDW Plt Count Lymph % (Auto) [place] % (Auto) Eos % (Auto) [place] # Seg Neutrophils % Seg Neuts % (Manual) Lymphocytes % (Manual) Seg Neutrophils # Seg Neutrophils # Man Lymphocytes # (Manual) APTT POC ABG pH ABG pH POC ABG pCO2 POC ABG pO2 ABG pO2 ABG HCO3 ABG Base Excess ABG Hemoglobin VBG pH Oxyhemoglobin Sodium Potassium Chloride Carbon Dioxide BUN Creatinine Glucose POC Glucose 244 H 203 H 216 H Lactic Acid Calcium AST ALT Alkaline Phosphatase CK-MB (CK-2) CK-MB (CK-2) Rel Index Total Protein Albumin TSH Urine WBC (Auto) Salicylates 03/16/17 03/16/17 03/16/17 05:52 18:07 21:54 WBC RBC Hgb Hct MCV MCH RDW Plt Count Lymph % (Auto) [place] % (Auto) Eos % (Auto) [place] # Seg Neutrophils % Seg Neuts % (Manual) Lymphocytes % (Manual) Seg Neutrophils # Seg Neutrophils # Man Lymphocytes # (Manual) APTT POC ABG pH ABG pH POC ABG pCO2 POC ABG pO2 ABG pO2 ABG HCO3 ABG Base Excess ABG Hemoglobin VBG pH Oxyhemoglobin Sodium Potassium Chloride Carbon Dioxide BUN Creatinine Glucose POC Glucose 248 H 254 H 244 H Lactic Acid Calcium AST ALT Alkaline Phosphatase CK-MB (CK-2) CK-MB (CK-2) Rel Index Total Protein Albumin TSH Urine WBC (Auto) Salicylates 03/17/17 03/17/17 03/17/17 07:07 07:42 07:43 WBC RBC Hgb 9.7 L Hct 29.1 L MCV 78 L MCH 26 L RDW 17.4 H Plt Count Lymph % (Auto) [place] % (Auto) Eos % (Auto) [place] # Seg Neutrophils % Seg Neuts % (Manual) Lymphocytes % (Manual) Seg Neutrophils # Seg Neutrophils # Man Lymphocytes # (Manual) APTT POC ABG pH ABG pH POC ABG pCO2 POC ABG pO2 ABG pO2 ABG HCO3 ABG Base Excess ABG Hemoglobin VBG pH Oxyhemoglobin Sodium Potassium Chloride 96.6 L Carbon Dioxide BUN 30 H Creatinine 0.5 L Glucose 251 H POC Glucose 222 H Lactic Acid Calcium AST ALT Alkaline Phosphatase CK-MB (CK-2) CK-MB (CK-2) Rel Index Total Protein Albumin TSH Urine WBC (Auto) Salicylates 03/17/17 03/17/17 03/18/17 14:08 21:20 14:24 WBC RBC Hgb Hct MCV MCH RDW Plt Count Lymph % (Auto) [place] % (Auto) Eos % (Auto) [place] # Seg Neutrophils % Seg Neuts % (Manual) Lymphocytes % (Manual) Seg Neutrophils # Seg Neutrophils # Man Lymphocytes # (Manual) APTT POC ABG pH ABG pH POC ABG pCO2 POC ABG pO2 ABG pO2 ABG HCO3 ABG Base Excess ABG Hemoglobin VBG pH Oxyhemoglobin Sodium Potassium Chloride Carbon Dioxide BUN Creatinine Glucose POC Glucose 281 H 239 H 195 H Lactic Acid Calcium AST ALT Alkaline Phosphatase CK-MB (CK-2) CK-MB (CK-2) Rel Index Total Protein Albumin TSH Urine WBC (Auto) Salicylates 03/18/17 03/19/17 03/19/17 21:37 04:57 14:23 WBC RBC Hgb Hct MCV MCH RDW Plt Count Lymph % (Auto) [place] % (Auto) Eos % (Auto) [place] # Seg Neutrophils % Seg Neuts % (Manual) Lymphocytes % (Manual) Seg Neutrophils # Seg Neutrophils # Man Lymphocytes # (Manual) APTT POC ABG pH ABG pH POC ABG pCO2 POC ABG pO2 ABG pO2 ABG HCO3 ABG Base Excess ABG Hemoglobin VBG pH Oxyhemoglobin Sodium Potassium Chloride Carbon Dioxide BUN Creatinine Glucose POC Glucose 227 H 205 H 277 H Lactic Acid Calcium AST ALT Alkaline Phosphatase CK-MB (CK-2) CK-MB (CK-2) Rel Index Total Protein Albumin TSH Urine WBC (Auto) Salicylates 03/19/17 03/19/17 03/20/17 20:31 21:47 04:55 WBC RBC Hgb Hct MCV MCH RDW Plt Count Lymph % (Auto) [place] % (Auto) Eos % (Auto) [place] # Seg Neutrophils % Seg Neuts % (Manual) Lymphocytes % (Manual) Seg Neutrophils # Seg Neutrophils # Man Lymphocytes # (Manual) APTT POC ABG pH ABG pH POC ABG pCO2 POC ABG pO2 ABG pO2 ABG HCO3 ABG Base Excess ABG Hemoglobin VBG pH Oxyhemoglobin Sodium Potassium Chloride Carbon Dioxide BUN Creatinine Glucose POC Glucose 256 H 270 H 202 H Lactic Acid Calcium AST ALT Alkaline Phosphatase CK-MB (CK-2) CK-MB (CK-2) Rel Index Total Protein Albumin TSH Urine WBC (Auto) Salicylates 03/20/17 03/20/17 03/21/17 14:09 21:40 05:09 WBC RBC Hgb Hct MCV MCH RDW Plt Count Lymph % (Auto) [place] % (Auto) Eos % (Auto) [place] # Seg Neutrophils % Seg Neuts % (Manual) Lymphocytes % (Manual) Seg Neutrophils # Seg Neutrophils # Man Lymphocytes # (Manual) APTT POC ABG pH ABG pH POC ABG pCO2 POC ABG pO2 ABG pO2 ABG HCO3 ABG Base Excess ABG Hemoglobin VBG pH Oxyhemoglobin Sodium Potassium Chloride Carbon Dioxide BUN Creatinine Glucose POC Glucose 200 H 214 H 233 H Lactic Acid Calcium AST ALT Alkaline Phosphatase CK-MB (CK-2) CK-MB (CK-2) Rel Index Total Protein Albumin TSH Urine WBC (Auto) Salicylates 03/21/17 03/21/17 03/22/17 14:06 21:26 05:43 WBC RBC Hgb Hct MCV MCH RDW Plt Count Lymph % (Auto) Bradford % (Auto) Eos % (Auto) Bradford # Seg Neutrophils % Seg Neuts % (Manual) Lymphocytes % (Manual) Seg Neutrophils # Seg Neutrophils # Man Lymphocytes # (Manual) APTT POC ABG pH ABG pH POC ABG pCO2 POC ABG pO2 ABG pO2 ABG HCO3 ABG Base Excess ABG Hemoglobin VBG pH Oxyhemoglobin Sodium Potassium Chloride Carbon Dioxide BUN Creatinine Glucose POC Glucose 250 H 155 H 251 H Lactic Acid Calcium AST ALT Alkaline Phosphatase CK-MB (CK-2) CK-MB (CK-2) Rel Index Total Protein Albumin TSH Urine WBC (Auto) Salicylates 03/22/17 03/22/17 03/23/17 13:46 21:16 00:23 WBC RBC Hgb Hct MCV MCH RDW Plt Count Lymph % (Auto) Bradford % (Auto) Eos % (Auto) Bradford # Seg Neutrophils % Seg Neuts % (Manual) Lymphocytes % (Manual) Seg Neutrophils # Seg Neutrophils # Man Lymphocytes # (Manual) APTT POC ABG pH ABG pH POC ABG pCO2 POC ABG pO2 ABG pO2 ABG HCO3 ABG Base Excess ABG Hemoglobin VBG pH Oxyhemoglobin Sodium Potassium Chloride Carbon Dioxide BUN Creatinine Glucose POC Glucose 269 H 197 H 126 H Lactic Acid Calcium AST ALT Alkaline Phosphatase CK-MB (CK-2) CK-MB (CK-2) Rel Index Total Protein Albumin TSH Urine WBC (Auto) Salicylates 03/23/17 03/23/17 03/23/17 05:39 14:06 21:39 WBC RBC Hgb Hct MCV MCH RDW Plt Count Lymph % (Auto) [place] % (Auto) Eos % (Auto) [place] # Seg Neutrophils % Seg Neuts % (Manual) Lymphocytes % (Manual) Seg Neutrophils # Seg Neutrophils # Man Lymphocytes # (Manual) APTT POC ABG pH ABG pH POC ABG pCO2 POC ABG pO2 ABG pO2 ABG HCO3 ABG Base Excess ABG Hemoglobin VBG pH Oxyhemoglobin Sodium Potassium Chloride Carbon Dioxide BUN Creatinine Glucose POC Glucose 234 H 241 H 248 H Lactic Acid Calcium AST ALT Alkaline Phosphatase CK-MB (CK-2) CK-MB (CK-2) Rel Index Total Protein Albumin TSH Urine WBC (Auto) Salicylates 03/24/17 03/24/17 03/25/17 05:06 21:46 05:38 WBC RBC Hgb Hct MCV MCH RDW Plt Count Lymph % (Auto) [place] % (Auto) Eos % (Auto) [place] # Seg Neutrophils % Seg Neuts % (Manual) Lymphocytes % (Manual) Seg Neutrophils # Seg Neutrophils # Man Lymphocytes # (Manual) APTT POC ABG pH ABG pH POC ABG pCO2 POC ABG pO2 ABG pO2 ABG HCO3 ABG Base Excess ABG Hemoglobin VBG pH Oxyhemoglobin Sodium Potassium Chloride Carbon Dioxide BUN Creatinine Glucose POC Glucose 232 H 276 H 242 H Lactic Acid Calcium AST ALT Alkaline Phosphatase CK-MB (CK-2) CK-MB (CK-2) Rel Index Total Protein Albumin TSH Urine WBC (Auto) Salicylates 03/25/17 03/25/17 03/26/17 14:30 23:14 13:53 WBC RBC Hgb Hct MCV MCH RDW Plt Count Lymph % (Auto) [place] % (Auto) Eos % (Auto) [place] # Seg Neutrophils % Seg Neuts % (Manual) Lymphocytes % (Manual) Seg Neutrophils # Seg Neutrophils # Man Lymphocytes # (Manual) APTT POC ABG pH ABG pH POC ABG pCO2 POC ABG pO2 ABG pO2 ABG HCO3 ABG Base Excess ABG Hemoglobin VBG pH Oxyhemoglobin Sodium Potassium Chloride Carbon Dioxide BUN Creatinine Glucose POC Glucose 246 H 208 H 195 H Lactic Acid Calcium AST ALT Alkaline Phosphatase CK-MB (CK-2) CK-MB (CK-2) Rel Index Total Protein Albumin TSH Urine WBC (Auto) Salicylates 03/26/17 03/27/17 03/27/17 21:58 05:18 14:57 WBC RBC Hgb Hct MCV MCH RDW Plt Count Lymph % (Auto) [place] % (Auto) Eos % (Auto) [place] # Seg Neutrophils % Seg Neuts % (Manual) Lymphocytes % (Manual) Seg Neutrophils # Seg Neutrophils # Man Lymphocytes # (Manual) APTT POC ABG pH ABG pH POC ABG pCO2 POC ABG pO2 ABG pO2 ABG HCO3 ABG Base Excess ABG Hemoglobin VBG pH Oxyhemoglobin Sodium Potassium Chloride Carbon Dioxide BUN Creatinine Glucose POC Glucose 241 H 199 H 269 H Lactic Acid Calcium AST ALT Alkaline Phosphatase CK-MB (CK-2) CK-MB (CK-2) Rel Index Total Protein Albumin TSH Urine WBC (Auto) Salicylates 03/27/17 03/28/17 03/28/17 21:33 13:52 21:29 WBC RBC Hgb Hct MCV MCH RDW Plt Count Lymph % (Auto) [place] % (Auto) Eos % (Auto) [place] # Seg Neutrophils % Seg Neuts % (Manual) Lymphocytes % (Manual) Seg Neutrophils # Seg Neutrophils # Man Lymphocytes # (Manual) APTT POC ABG pH ABG pH POC ABG pCO2 POC ABG pO2 ABG pO2 ABG HCO3 ABG Base Excess ABG Hemoglobin VBG pH Oxyhemoglobin Sodium Potassium Chloride Carbon Dioxide BUN Creatinine Glucose POC Glucose 214 H 243 H 286 H Lactic Acid Calcium AST ALT Alkaline Phosphatase CK-MB (CK-2) CK-MB (CK-2) Rel Index Total Protein Albumin TSH Urine WBC (Auto) Salicylates 03/29/17 03/29/17 03/29/17 04:32 04:32 13:58 WBC RBC Hgb 10.6 L Hct 32.9 L MCV 78 L MCH 25 L RDW 17.6 H Plt Count Lymph % (Auto) 38.0 H [place] % (Auto) 9.7 H Eos % (Auto) [place] # Seg Neutrophils % Seg Neuts % (Manual) Lymphocytes % (Manual) Seg Neutrophils # Seg Neutrophils # Man Lymphocytes # (Manual) APTT POC ABG pH ABG pH POC ABG pCO2 POC ABG pO2 ABG pO2 ABG HCO3 ABG Base Excess ABG Hemoglobin VBG pH Oxyhemoglobin Sodium 132 L Potassium Chloride 94.0 L Carbon Dioxide BUN 28 H Creatinine 0.5 L Glucose 236 H POC Glucose 171 H Lactic Acid Calcium AST ALT 71 H Alkaline Phosphatase 391 H CK-MB (CK-2) CK-MB (CK-2) Rel Index Total Protein 8.3 H Albumin 2.9 L TSH Urine WBC (Auto) Salicylates 03/29/17 03/30/17 03/30/17 20:59 06:07 11:52 WBC RBC Hgb Hct MCV MCH RDW Plt Count Lymph % (Auto) [place] % (Auto) Eos % (Auto) [place] # Seg Neutrophils % Seg Neuts % (Manual) Lymphocytes % (Manual) Seg Neutrophils # Seg Neutrophils # Man Lymphocytes # (Manual) APTT POC ABG pH ABG pH POC ABG pCO2 POC ABG pO2 ABG pO2 ABG HCO3 ABG Base Excess ABG Hemoglobin VBG pH Oxyhemoglobin Sodium Potassium Chloride Carbon Dioxide BUN Creatinine Glucose POC Glucose 215 H 259 H 197 H Lactic Acid Calcium AST ALT Alkaline Phosphatase CK-MB (CK-2) CK-MB (CK-2) Rel Index Total Protein Albumin TSH Urine WBC (Auto) Salicylates 03/30/17 03/31/17 03/31/17 21:34 05:42 14:34 WBC RBC Hgb Hct MCV MCH RDW Plt Count Lymph % (Auto) [place] % (Auto) Eos % (Auto) [place] # Seg Neutrophils % Seg Neuts % (Manual) Lymphocytes % (Manual) Seg Neutrophils # Seg Neutrophils # Man Lymphocytes # (Manual) APTT POC ABG pH ABG pH POC ABG pCO2 POC ABG pO2 ABG pO2 ABG HCO3 ABG Base Excess ABG Hemoglobin VBG pH Oxyhemoglobin Sodium Potassium Chloride Carbon Dioxide BUN Creatinine Glucose POC Glucose 207 H 184 H 213 H Lactic Acid Calcium AST ALT Alkaline Phosphatase CK-MB (CK-2) CK-MB (CK-2) Rel Index Total Protein Albumin TSH Urine WBC (Auto) Salicylates 03/31/17 04/01/17 04/01/17 21:32 05:53 13:48 WBC RBC Hgb Hct MCV MCH RDW Plt Count Lymph % (Auto) [place] % (Auto) Eos % (Auto) [place] # Seg Neutrophils % Seg Neuts % (Manual) Lymphocytes % (Manual) Seg Neutrophils # Seg Neutrophils # Man Lymphocytes # (Manual) APTT POC ABG pH ABG pH POC ABG pCO2 POC ABG pO2 ABG pO2 ABG HCO3 ABG Base Excess ABG Hemoglobin VBG pH Oxyhemoglobin Sodium Potassium Chloride Carbon Dioxide BUN Creatinine Glucose POC Glucose 249 H 225 H 256 H Lactic Acid Calcium AST ALT Alkaline Phosphatase CK-MB (CK-2) CK-MB (CK-2) Rel Index Total Protein Albumin TSH Urine WBC (Auto) Salicylates 04/01/17 04/02/17 04/02/17 21:34 05:32 14:05 WBC RBC Hgb Hct MCV MCH RDW Plt Count Lymph % (Auto) [place] % (Auto) Eos % (Auto) [place] # Seg Neutrophils % Seg Neuts % (Manual) Lymphocytes % (Manual) Seg Neutrophils # Seg Neutrophils # Man Lymphocytes # (Manual) APTT POC ABG pH ABG pH POC ABG pCO2 POC ABG pO2 ABG pO2 ABG HCO3 ABG Base Excess ABG Hemoglobin VBG pH Oxyhemoglobin Sodium Potassium Chloride Carbon Dioxide BUN Creatinine Glucose POC Glucose 292 H 220 H 187 H Lactic Acid Calcium AST ALT Alkaline Phosphatase CK-MB (CK-2) CK-MB (CK-2) Rel Index Total Protein Albumin TSH Urine WBC (Auto) Salicylates 04/02/17 04/03/17 04/03/17 21:57 04:49 14:12 WBC RBC Hgb Hct MCV MCH RDW Plt Count Lymph % (Auto) [place] % (Auto) Eos % (Auto) [place] # Seg Neutrophils % Seg Neuts % (Manual) Lymphocytes % (Manual) Seg Neutrophils # Seg Neutrophils # Man Lymphocytes # (Manual) APTT POC ABG pH ABG pH POC ABG pCO2 POC ABG pO2 ABG pO2 ABG HCO3 ABG Base Excess ABG Hemoglobin VBG pH Oxyhemoglobin Sodium Potassium Chloride Carbon Dioxide BUN Creatinine Glucose POC Glucose 285 H 256 H 197 H Lactic Acid Calcium AST ALT Alkaline Phosphatase CK-MB (CK-2) CK-MB (CK-2) Rel Index Total Protein Albumin TSH Urine WBC (Auto) Salicylates 04/03/17 04/04/17 04/04/17 21:11 05:20 13:18 WBC RBC Hgb Hct MCV MCH RDW Plt Count Lymph % (Auto) [place] % (Auto) Eos % (Auto) [place] # Seg Neutrophils % Seg Neuts % (Manual) Lymphocytes % (Manual) Seg Neutrophils # Seg Neutrophils # Man Lymphocytes # (Manual) APTT POC ABG pH ABG pH POC ABG pCO2 POC ABG pO2 ABG pO2 ABG HCO3 ABG Base Excess ABG Hemoglobin VBG pH Oxyhemoglobin Sodium Potassium Chloride Carbon Dioxide BUN Creatinine Glucose POC Glucose 166 H 228 H 252 H Lactic Acid Calcium AST ALT Alkaline Phosphatase CK-MB (CK-2) CK-MB (CK-2) Rel Index Total Protein Albumin TSH Urine WBC (Auto) Salicylates 04/04/17 04/05/17 04/05/17 21:51 06:14 09:54 WBC RBC Hgb Hct MCV MCH RDW Plt Count Lymph % (Auto) [place] % (Auto) Eos % (Auto) [place] # Seg Neutrophils % Seg Neuts % (Manual) Lymphocytes % (Manual) Seg Neutrophils # Seg Neutrophils # Man Lymphocytes # (Manual) APTT POC ABG pH ABG pH POC ABG pCO2 POC ABG pO2 ABG pO2 ABG HCO3 ABG Base Excess ABG Hemoglobin VBG pH Oxyhemoglobin Sodium Potassium Chloride Carbon Dioxide BUN Creatinine Glucose POC Glucose 252 H 152 H 181 H Lactic Acid Calcium AST ALT Alkaline Phosphatase CK-MB (CK-2) CK-MB (CK-2) Rel Index Total Protein Albumin TSH Urine WBC (Auto) Salicylates 04/05/17 04/05/17 04/05/17 14:49 17:34 21:38 WBC RBC Hgb Hct MCV MCH RDW Plt Count Lymph % (Auto) [place] % (Auto) Eos % (Auto) [place] # Seg Neutrophils % Seg Neuts % (Manual) Lymphocytes % (Manual) Seg Neutrophils # Seg Neutrophils # Man Lymphocytes # (Manual) APTT POC ABG pH ABG pH POC ABG pCO2 POC ABG pO2 ABG pO2 ABG HCO3 ABG Base Excess ABG Hemoglobin VBG pH Oxyhemoglobin Sodium Potassium Chloride Carbon Dioxide BUN Creatinine Glucose POC Glucose 219 H 268 H 278 H Lactic Acid Calcium AST ALT Alkaline Phosphatase CK-MB (CK-2) CK-MB (CK-2) Rel Index Total Protein Albumin TSH Urine WBC (Auto) Salicylates 04/06/17 04/06/17 04/07/17 15:04 22:14 05:09 WBC RBC Hgb Hct MCV MCH RDW Plt Count Lymph % (Auto) [place] % (Auto) Eos % (Auto) [place] # Seg Neutrophils % Seg Neuts % (Manual) Lymphocytes % (Manual) Seg Neutrophils # Seg Neutrophils # Man Lymphocytes # (Manual) APTT POC ABG pH ABG pH POC ABG pCO2 POC ABG pO2 ABG pO2 ABG HCO3 ABG Base Excess ABG Hemoglobin VBG pH Oxyhemoglobin Sodium Potassium Chloride Carbon Dioxide BUN Creatinine Glucose POC Glucose 285 H 106 H 334 H Lactic Acid Calcium AST ALT Alkaline Phosphatase CK-MB (CK-2) CK-MB (CK-2) Rel Index Total Protein Albumin TSH Urine WBC (Auto) Salicylates 04/07/17 04/07/17 04/08/17 14:45 21:48 05:28 WBC RBC Hgb Hct MCV MCH RDW Plt Count Lymph % (Auto) [place] % (Auto) Eos % (Auto) [place] # Seg Neutrophils % Seg Neuts % (Manual) Lymphocytes % (Manual) Seg Neutrophils # Seg Neutrophils # Man Lymphocytes # (Manual) APTT POC ABG pH ABG pH POC ABG pCO2 POC ABG pO2 ABG pO2 ABG HCO3 ABG Base Excess ABG Hemoglobin VBG pH Oxyhemoglobin Sodium Potassium Chloride Carbon Dioxide BUN Creatinine Glucose POC Glucose 173 H 304 H 314 H Lactic Acid Calcium AST ALT Alkaline Phosphatase CK-MB (CK-2) CK-MB (CK-2) Rel Index Total Protein Albumin TSH Urine WBC (Auto) Salicylates 04/08/17 04/08/17 04/08/17 15:57 16:17 22:21 WBC RBC Hgb Hct MCV MCH RDW Plt Count Lymph % (Auto) [place] % (Auto) Eos % (Auto) [place] # Seg Neutrophils % Seg Neuts % (Manual) Lymphocytes % (Manual) Seg Neutrophils # Seg Neutrophils # Man Lymphocytes # (Manual) APTT POC ABG pH ABG pH POC ABG pCO2 POC ABG pO2 ABG pO2 ABG HCO3 ABG Base Excess ABG Hemoglobin VBG pH Oxyhemoglobin Sodium Potassium Chloride Carbon Dioxide BUN Creatinine Glucose POC Glucose 356 H 337 H 323 H Lactic Acid Calcium AST ALT Alkaline Phosphatase CK-MB (CK-2) CK-MB (CK-2) Rel Index Total Protein Albumin TSH Urine WBC (Auto) Salicylates 04/09/17 04/09/17 04/09/17 06:19 15:30 21:52 WBC RBC Hgb Hct MCV MCH RDW Plt Count Lymph % (Auto) [place] % (Auto) Eos % (Auto) [place] # Seg Neutrophils % Seg Neuts % (Manual) Lymphocytes % (Manual) Seg Neutrophils # Seg Neutrophils # Man Lymphocytes # (Manual) APTT POC ABG pH ABG pH POC ABG pCO2 POC ABG pO2 ABG pO2 ABG HCO3 ABG Base Excess ABG Hemoglobin VBG pH Oxyhemoglobin Sodium Potassium Chloride Carbon Dioxide BUN Creatinine Glucose POC Glucose 340 H 332 H 341 H Lactic Acid Calcium AST ALT Alkaline Phosphatase CK-MB (CK-2) CK-MB (CK-2) Rel Index Total Protein Albumin TSH Urine WBC (Auto) Salicylates 04/10/17 04/10/17 04/10/17 01:53 05:33 17:40 WBC RBC Hgb Hct MCV MCH RDW Plt Count Lymph % (Auto) [place] % (Auto) Eos % (Auto) [place] # Seg Neutrophils % Seg Neuts % (Manual) Lymphocytes % (Manual) Seg Neutrophils # Seg Neutrophils # Man Lymphocytes # (Manual) APTT POC ABG pH ABG pH POC ABG pCO2 POC ABG pO2 ABG pO2 ABG HCO3 ABG Base Excess ABG Hemoglobin VBG pH Oxyhemoglobin Sodium Potassium Chloride Carbon Dioxide BUN Creatinine Glucose POC Glucose 261 H 277 H 304 H Lactic Acid Calcium AST ALT Alkaline Phosphatase CK-MB (CK-2) CK-MB (CK-2) Rel Index Total Protein Albumin TSH Urine WBC (Auto) Salicylates 04/10/17 04/11/17 04/11/17 21:29 05:28 14:02 WBC RBC Hgb Hct MCV MCH RDW Plt Count Lymph % (Auto) [place] % (Auto) Eos % (Auto) [place] # Seg Neutrophils % Seg Neuts % (Manual) Lymphocytes % (Manual) Seg Neutrophils # Seg Neutrophils # Man Lymphocytes # (Manual) APTT POC ABG pH ABG pH POC ABG pCO2 POC ABG pO2 ABG pO2 ABG HCO3 ABG Base Excess ABG Hemoglobin VBG pH Oxyhemoglobin Sodium Potassium Chloride Carbon Dioxide BUN Creatinine Glucose POC Glucose 361 H 204 H 236 H Lactic Acid Calcium AST ALT Alkaline Phosphatase CK-MB (CK-2) CK-MB (CK-2) Rel Index Total Protein Albumin TSH Urine WBC (Auto) Salicylates 04/11/17 04/12/17 04/12/17 21:43 05:00 11:53 WBC RBC Hgb Hct MCV MCH RDW Plt Count Lymph % (Auto) [place] % (Auto) Eos % (Auto) [place] # Seg Neutrophils % Seg Neuts % (Manual) Lymphocytes % (Manual) Seg Neutrophils # Seg Neutrophils # Man Lymphocytes # (Manual) APTT POC ABG pH ABG pH POC ABG pCO2 POC ABG pO2 ABG pO2 ABG HCO3 ABG Base Excess ABG Hemoglobin VBG pH Oxyhemoglobin Sodium Potassium Chloride Carbon Dioxide BUN Creatinine Glucose POC Glucose 287 H 294 H 265 H Lactic Acid Calcium AST ALT Alkaline Phosphatase CK-MB (CK-2) CK-MB (CK-2) Rel Index Total Protein Albumin TSH Urine WBC (Auto) Salicylates 04/12/17 04/12/17 04/13/17 21:21 23:44 06:05 WBC RBC Hgb Hct MCV MCH RDW Plt Count Lymph % (Auto) [place] % (Auto) Eos % (Auto) [place] # Seg Neutrophils % Seg Neuts % (Manual) Lymphocytes % (Manual) Seg Neutrophils # Seg Neutrophils # Man Lymphocytes # (Manual) APTT POC ABG pH ABG pH POC ABG pCO2 POC ABG pO2 ABG pO2 ABG HCO3 ABG Base Excess ABG Hemoglobin VBG pH Oxyhemoglobin Sodium Potassium Chloride Carbon Dioxide BUN Creatinine Glucose POC Glucose 289 H 348 H 326 H Lactic Acid Calcium AST ALT Alkaline Phosphatase CK-MB (CK-2) CK-MB (CK-2) Rel Index Total Protein Albumin TSH Urine WBC (Auto) Salicylates 04/13/17 04/13/17 04/14/17 13:54 21:15 05:49 WBC RBC Hgb Hct MCV MCH RDW Plt Count Lymph % (Auto) [place] % (Auto) Eos % (Auto) [place] # Seg Neutrophils % Seg Neuts % (Manual) Lymphocytes % (Manual) Seg Neutrophils # Seg Neutrophils # Man Lymphocytes # (Manual) APTT POC ABG pH ABG pH POC ABG pCO2 POC ABG pO2 ABG pO2 ABG HCO3 ABG Base Excess ABG Hemoglobin VBG pH Oxyhemoglobin Sodium Potassium Chloride Carbon Dioxide BUN Creatinine Glucose POC Glucose 326 H 263 H 319 H Lactic Acid Calcium AST ALT Alkaline Phosphatase CK-MB (CK-2) CK-MB (CK-2) Rel Index Total Protein Albumin TSH Urine WBC (Auto) Salicylates 04/14/17 04/14/17 04/15/17 13:26 23:13 14:24 WBC RBC Hgb Hct MCV MCH RDW Plt Count Lymph % (Auto) [place] % (Auto) Eos % (Auto) [place] # Seg Neutrophils % Seg Neuts % (Manual) Lymphocytes % (Manual) Seg Neutrophils # Seg Neutrophils # Man Lymphocytes # (Manual) APTT POC ABG pH ABG pH POC ABG pCO2 POC ABG pO2 ABG pO2 ABG HCO3 ABG Base Excess ABG Hemoglobin VBG pH Oxyhemoglobin Sodium Potassium Chloride Carbon Dioxide BUN Creatinine Glucose POC Glucose 207 H 365 H 308 H Lactic Acid Calcium AST ALT Alkaline Phosphatase CK-MB (CK-2) CK-MB (CK-2) Rel Index Total Protein Albumin TSH Urine WBC (Auto) Salicylates 04/15/17 04/15/17 04/15/17 21:00 22:18 23:12 WBC RBC Hgb Hct MCV MCH RDW Plt Count Lymph % (Auto) [place] % (Auto) Eos % (Auto) [place] # Seg Neutrophils % Seg Neuts % (Manual) Lymphocytes % (Manual) Seg Neutrophils # Seg Neutrophils # Man Lymphocytes # (Manual) APTT POC ABG pH ABG pH POC ABG pCO2 POC ABG pO2 ABG pO2 ABG HCO3 ABG Base Excess ABG Hemoglobin VBG pH Oxyhemoglobin Sodium Potassium Chloride Carbon Dioxide BUN Creatinine Glucose POC Glucose 407 H 287 H 325 H Lactic Acid Calcium AST ALT Alkaline Phosphatase CK-MB (CK-2) CK-MB (CK-2) Rel Index Total Protein Albumin TSH Urine WBC (Auto) Salicylates 04/16/17 04/16/17 04/16/17 05:30 10:07 14:26 WBC RBC Hgb Hct MCV MCH RDW Plt Count Lymph % (Auto) [place] % (Auto) Eos % (Auto) [place] # Seg Neutrophils % Seg Neuts % (Manual) Lymphocytes % (Manual) Seg Neutrophils # Seg Neutrophils # Man Lymphocytes # (Manual) APTT POC ABG pH ABG pH POC ABG pCO2 POC ABG pO2 ABG pO2 ABG HCO3 ABG Base Excess ABG Hemoglobin VBG pH Oxyhemoglobin Sodium Potassium Chloride Carbon Dioxide BUN Creatinine Glucose POC Glucose 304 H 217 H 344 H Lactic Acid Calcium AST ALT Alkaline Phosphatase CK-MB (CK-2) CK-MB (CK-2) Rel Index Total Protein Albumin TSH Urine WBC (Auto) Salicylates 04/16/17 04/17/17 04/17/17 21:25 05:12 14:19 WBC RBC Hgb Hct MCV MCH RDW Plt Count Lymph % (Auto) [place] % (Auto) Eos % (Auto) [place] # Seg Neutrophils % Seg Neuts % (Manual) Lymphocytes % (Manual) Seg Neutrophils # Seg Neutrophils # Man Lymphocytes # (Manual) APTT POC ABG pH ABG pH POC ABG pCO2 POC ABG pO2 ABG pO2 ABG HCO3 ABG Base Excess ABG Hemoglobin VBG pH Oxyhemoglobin Sodium Potassium Chloride Carbon Dioxide BUN Creatinine Glucose POC Glucose 305 H 233 H 324 H Lactic Acid Calcium AST ALT Alkaline Phosphatase CK-MB (CK-2) CK-MB (CK-2) Rel Index Total Protein Albumin TSH Urine WBC (Auto) Salicylates 04/17/17 04/18/17 04/18/17 21:42 06:21 14:08 WBC RBC Hgb Hct MCV MCH RDW Plt Count Lymph % (Auto) [place] % (Auto) Eos % (Auto) [place] # Seg Neutrophils % Seg Neuts % (Manual) Lymphocytes % (Manual) Seg Neutrophils # Seg Neutrophils # Man Lymphocytes # (Manual) APTT POC ABG pH ABG pH POC ABG pCO2 POC ABG pO2 ABG pO2 ABG HCO3 ABG Base Excess ABG Hemoglobin VBG pH Oxyhemoglobin Sodium Potassium Chloride Carbon Dioxide BUN Creatinine Glucose POC Glucose 270 H 308 H 290 H Lactic Acid Calcium AST ALT Alkaline Phosphatase CK-MB (CK-2) CK-MB (CK-2) Rel Index Total Protein Albumin TSH Urine WBC (Auto) Salicylates 04/18/17 04/19/17 04/19/17 21:50 05:20 13:59 WBC RBC Hgb Hct MCV MCH RDW Plt Count Lymph % (Auto) [place] % (Auto) Eos % (Auto) [place] # Seg Neutrophils % Seg Neuts % (Manual) Lymphocytes % (Manual) Seg Neutrophils # Seg Neutrophils # Man Lymphocytes # (Manual) APTT POC ABG pH ABG pH POC ABG pCO2 POC ABG pO2 ABG pO2 ABG HCO3 ABG Base Excess ABG Hemoglobin VBG pH Oxyhemoglobin Sodium Potassium Chloride Carbon Dioxide BUN Creatinine Glucose POC Glucose 167 H 372 H 321 H Lactic Acid Calcium AST ALT Alkaline Phosphatase CK-MB (CK-2) CK-MB (CK-2) Rel Index Total Protein Albumin TSH Urine WBC (Auto) Salicylates 04/19/17 04/20/17 04/20/17 21:16 14:18 21:34 WBC RBC Hgb Hct MCV MCH RDW Plt Count Lymph % (Auto) [place] % (Auto) Eos % (Auto) [place] # Seg Neutrophils % Seg Neuts % (Manual) Lymphocytes % (Manual) Seg Neutrophils # Seg Neutrophils # Man Lymphocytes # (Manual) APTT POC ABG pH ABG pH POC ABG pCO2 POC ABG pO2 ABG pO2 ABG HCO3 ABG Base Excess ABG Hemoglobin VBG pH Oxyhemoglobin Sodium Potassium Chloride Carbon Dioxide BUN Creatinine Glucose POC Glucose 182 H 218 H 121 H Lactic Acid Calcium AST ALT Alkaline Phosphatase CK-MB (CK-2) CK-MB (CK-2) Rel Index Total Protein Albumin TSH Urine WBC (Auto) Salicylates 04/21/17 04/21/17 04/21/17 00:08 05:16 12:41 WBC RBC Hgb Hct MCV MCH RDW Plt Count Lymph % (Auto) [place] % (Auto) Eos % (Auto) [place] # Seg Neutrophils % Seg Neuts % (Manual) Lymphocytes % (Manual) Seg Neutrophils # Seg Neutrophils # Man Lymphocytes # (Manual) APTT POC ABG pH ABG pH POC ABG pCO2 POC ABG pO2 ABG pO2 ABG HCO3 ABG Base Excess ABG Hemoglobin VBG pH Oxyhemoglobin Sodium Potassium Chloride Carbon Dioxide BUN Creatinine Glucose POC Glucose 128 H 120 H 216 H Lactic Acid Calcium AST ALT Alkaline Phosphatase CK-MB (CK-2) CK-MB (CK-2) Rel Index Total Protein Albumin TSH Urine WBC (Auto) Salicylates 04/21/17 04/22/17 04/22/17 23:40 14:12 23:38 WBC RBC Hgb Hct MCV MCH RDW Plt Count Lymph % (Auto) [place] % (Auto) Eos % (Auto) [place] # Seg Neutrophils % Seg Neuts % (Manual) Lymphocytes % (Manual) Seg Neutrophils # Seg Neutrophils # Man Lymphocytes # (Manual) APTT POC ABG pH ABG pH POC ABG pCO2 POC ABG pO2 ABG pO2 ABG HCO3 ABG Base Excess ABG Hemoglobin VBG pH Oxyhemoglobin Sodium Potassium Chloride Carbon Dioxide BUN Creatinine Glucose POC Glucose 157 H 242 H 117 H Lactic Acid Calcium AST ALT Alkaline Phosphatase CK-MB (CK-2) CK-MB (CK-2) Rel Index Total Protein Albumin TSH Urine WBC (Auto) Salicylates 04/23/17 04/23/17 04/24/17 05:18 14:01 03:24 WBC RBC Hgb Hct MCV MCH RDW Plt Count Lymph % (Auto) [place] % (Auto) Eos % (Auto) [place] # Seg Neutrophils % Seg Neuts % (Manual) Lymphocytes % (Manual) Seg Neutrophils # Seg Neutrophils # Man Lymphocytes # (Manual) APTT POC ABG pH ABG pH POC ABG pCO2 POC ABG pO2 ABG pO2 ABG HCO3 ABG Base Excess ABG Hemoglobin VBG pH Oxyhemoglobin Sodium Potassium Chloride Carbon Dioxide BUN Creatinine Glucose POC Glucose 163 H 57 L 177 H Lactic Acid Calcium AST ALT Alkaline Phosphatase CK-MB (CK-2) CK-MB (CK-2) Rel Index Total Protein Albumin TSH Urine WBC (Auto) Salicylates 04/24/17 04/24/17 04/24/17 04:00 04:00 06:33 WBC RBC Hgb 9.9 L Hct 30.0 L MCV 79 L MCH 26 L RDW 17.1 H Plt Count 625 H Lymph % (Auto) [place] % (Auto) 8.4 H Eos % (Auto) [place] # Seg Neutrophils % Seg Neuts % (Manual) Lymphocytes % (Manual) Seg Neutrophils # Seg Neutrophils # Man Lymphocytes # (Manual) APTT POC ABG pH ABG pH POC ABG pCO2 POC ABG pO2 ABG pO2 ABG HCO3 ABG Base Excess ABG Hemoglobin VBG pH Oxyhemoglobin Sodium 136 L Potassium Chloride 94.9 L Carbon Dioxide BUN 40 H Creatinine 0.6 L Glucose 176 H POC Glucose 230 H Lactic Acid Calcium AST 67 H ALT Alkaline Phosphatase 294 H CK-MB (CK-2) CK-MB (CK-2) Rel Index Total Protein 9.0 H Albumin 2.5 L TSH Urine WBC (Auto) Salicylates 04/24/17 04/25/17 04/25/17 13:50 00:22 02:55 WBC RBC 3.54 L Hgb 9.0 L Hct 27.9 L MCV 79 L MCH 26 L RDW 17.5 H Plt Count 574 H Lymph % (Auto) [place] % (Auto) 10.4 H Eos % (Auto) [place] # 1.0 H Seg Neutrophils % Seg Neuts % (Manual) Lymphocytes % (Manual) Seg Neutrophils # Seg Neutrophils # Man Lymphocytes # (Manual) APTT POC ABG pH ABG pH POC ABG pCO2 POC ABG pO2 ABG pO2 ABG HCO3 ABG Base Excess ABG Hemoglobin VBG pH Oxyhemoglobin Sodium Potassium Chloride Carbon Dioxide BUN Creatinine Glucose POC Glucose 116 H < 40 L Lactic Acid Calcium AST ALT Alkaline Phosphatase CK-MB (CK-2) CK-MB (CK-2) Rel Index Total Protein Albumin TSH Urine WBC (Auto) Salicylates 04/25/17 04/25/17 04/25/17 02:55 11:15 18:36 WBC RBC Hgb Hct MCV MCH RDW Plt Count Lymph % (Auto) [place] % (Auto) Eos % (Auto) [place] # Seg Neutrophils % Seg Neuts % (Manual) Lymphocytes % (Manual) Seg Neutrophils # Seg Neutrophils # Man Lymphocytes # (Manual) APTT POC ABG pH ABG pH POC ABG pCO2 POC ABG pO2 ABG pO2 ABG HCO3 ABG Base Excess ABG Hemoglobin VBG pH Oxyhemoglobin Sodium Potassium Chloride 96.2 L Carbon Dioxide BUN 39 H Creatinine 0.7 L Glucose 125 H POC Glucose 227 H 280 H Lactic Acid Calcium AST ALT Alkaline Phosphatase 247 H CK-MB (CK-2) CK-MB (CK-2) Rel Index Total Protein Albumin 2.7 L TSH Urine WBC (Auto) Salicylates 04/25/17 04/26/17 04/26/17 21:49 06:53 07:27 WBC RBC 3.61 L Hgb 9.1 L Hct 28.1 L MCV 78 L MCH 25 L RDW 17.4 H Plt Count 594 H Lymph % (Auto) Bradford % (Auto) 9.2 H Eos % (Auto) Bradford # 1.0 H Seg Neutrophils % 70.6 H Seg Neuts % (Manual) Lymphocytes % (Manual) Seg Neutrophils # Seg Neutrophils # Man Lymphocytes # (Manual) APTT POC ABG pH ABG pH POC ABG pCO2 POC ABG pO2 ABG pO2 ABG HCO3 ABG Base Excess ABG Hemoglobin VBG pH Oxyhemoglobin Sodium Potassium Chloride Carbon Dioxide BUN Creatinine Glucose POC Glucose 192 H 60 L Lactic Acid Calcium AST ALT Alkaline Phosphatase CK-MB (CK-2) CK-MB (CK-2) Rel Index Total Protein Albumin TSH Urine WBC (Auto) Salicylates 04/26/17 04/26/17 04/26/17 07:27 07:28 13:32 WBC RBC Hgb Hct MCV MCH RDW Plt Count Lymph % (Auto) Bradford % (Auto) Eos % (Auto) Bradford # Seg Neutrophils % Seg Neuts % (Manual) Lymphocytes % (Manual) Seg Neutrophils # Seg Neutrophils # Man Lymphocytes # (Manual) APTT POC ABG pH ABG pH POC ABG pCO2 POC ABG pO2 ABG pO2 ABG HCO3 ABG Base Excess ABG Hemoglobin VBG pH Oxyhemoglobin Sodium Potassium Chloride 95.0 L Carbon Dioxide BUN 42 H Creatinine 0.7 L Glucose 172 H POC Glucose 190 H 168 H Lactic Acid Calcium AST 56 H ALT Alkaline Phosphatase 274 H CK-MB (CK-2) CK-MB (CK-2) Rel Index Total Protein 8.9 H Albumin 2.7 L TSH Urine WBC (Auto) Salicylates 04/26/17 04/27/17 04/27/17 23:36 05:10 05:10 WBC RBC 3.49 L Hgb 8.7 L Hct 27.0 L MCV 77 L MCH 25 L RDW 17.4 H Plt Count 558 H Lymph % (Auto) Bradford % (Auto) 9.6 H Eos % (Auto) Bradford # Seg Neutrophils % Seg Neuts % (Manual) Lymphocytes % (Manual) Seg Neutrophils # Seg Neutrophils # Man Lymphocytes # (Manual) APTT POC ABG pH ABG pH POC ABG pCO2 POC ABG pO2 ABG pO2 ABG HCO3 ABG Base Excess ABG Hemoglobin VBG pH Oxyhemoglobin Sodium 133 L Potassium Chloride 93.5 L Carbon Dioxide BUN 40 H Creatinine 0.7 L Glucose 179 H POC Glucose 204 H Lactic Acid Calcium AST 73 H ALT 58 H Alkaline Phosphatase 294 H CK-MB (CK-2) CK-MB (CK-2) Rel Index Total Protein 8.7 H Albumin 2.4 L TSH Urine WBC (Auto) Salicylates 04/27/17 04/27/17 04/27/17 05:45 14:08 23:46 WBC RBC Hgb Hct MCV MCH RDW Plt Count Lymph % (Auto) Bradford % (Auto) Eos % (Auto) Bradford # Seg Neutrophils % Seg Neuts % (Manual) Lymphocytes % (Manual) Seg Neutrophils # Seg Neutrophils # Man Lymphocytes # (Manual) APTT POC ABG pH ABG pH POC ABG pCO2 POC ABG pO2 ABG pO2 ABG HCO3 ABG Base Excess ABG Hemoglobin VBG pH Oxyhemoglobin Sodium Potassium Chloride Carbon Dioxide BUN Creatinine Glucose POC Glucose 200 H 206 H 207 H Lactic Acid Calcium AST ALT Alkaline Phosphatase CK-MB (CK-2) CK-MB (CK-2) Rel Index Total Protein Albumin TSH Urine WBC (Auto) Salicylates 04/28/17 04/28/17 04/28/17 04:48 04:53 05:10 WBC RBC 3.48 L Hgb 8.8 L Hct 26.7 L MCV 77 L MCH 25 L RDW 17.0 H Plt Count 515 H Lymph % (Auto) Bradford % (Auto) 8.4 H Eos % (Auto) Bradford # Seg Neutrophils % 70.6 H Seg Neuts % (Manual) Lymphocytes % (Manual) Seg Neutrophils # Seg Neutrophils # Man Lymphocytes # (Manual) APTT POC ABG pH ABG pH POC ABG pCO2 POC ABG pO2 ABG pO2 ABG HCO3 ABG Base Excess ABG Hemoglobin VBG pH Oxyhemoglobin Sodium Potassium Chloride Carbon Dioxide BUN Creatinine Glucose POC Glucose 43 L 41 L Lactic Acid Calcium AST ALT Alkaline Phosphatase CK-MB (CK-2) CK-MB (CK-2) Rel Index Total Protein Albumin TSH Urine WBC (Auto) Salicylates 04/28/17 04/28/17 04/28/17 05:10 14:06 22:07 WBC RBC Hgb Hct MCV MCH RDW Plt Count Lymph % (Auto) Bradford % (Auto) Eos % (Auto) Bradford # Seg Neutrophils % Seg Neuts % (Manual) Lymphocytes % (Manual) Seg Neutrophils # Seg Neutrophils # Man Lymphocytes # (Manual) APTT POC ABG pH ABG pH POC ABG pCO2 POC ABG pO2 ABG pO2 ABG HCO3 ABG Base Excess ABG Hemoglobin VBG pH Oxyhemoglobin Sodium 136 L Potassium Chloride 95.2 L Carbon Dioxide BUN 42 H Creatinine Glucose 63 L POC Glucose 303 H 227 H Lactic Acid Calcium AST 45 H ALT Alkaline Phosphatase 271 H CK-MB (CK-2) CK-MB (CK-2) Rel Index Total Protein 8.9 H Albumin 2.5 L TSH Urine WBC (Auto) Salicylates 04/29/17 04/29/17 04/29/17 06:40 14:11 21:35 WBC RBC Hgb Hct MCV MCH RDW Plt Count Lymph % (Auto) Bradford % (Auto) Eos % (Auto) Bradford # Seg Neutrophils % Seg Neuts % (Manual) Lymphocytes % (Manual) Seg Neutrophils # Seg Neutrophils # Man Lymphocytes # (Manual) APTT POC ABG pH ABG pH POC ABG pCO2 POC ABG pO2 ABG pO2 ABG HCO3 ABG Base Excess ABG Hemoglobin VBG pH Oxyhemoglobin Sodium Potassium Chloride Carbon Dioxide BUN Creatinine Glucose POC Glucose 254 H 244 H 184 H Lactic Acid Calcium AST ALT Alkaline Phosphatase CK-MB (CK-2) CK-MB (CK-2) Rel Index Total Protein Albumin TSH Urine WBC (Auto) Salicylates 04/30/17 04/30/17 04/30/17 05:17 14:03 22:08 WBC RBC Hgb Hct MCV MCH RDW Plt Count Lymph % (Auto) Bradford % (Auto) Eos % (Auto) Bradford # Seg Neutrophils % Seg Neuts % (Manual) Lymphocytes % (Manual) Seg Neutrophils # Seg Neutrophils # Man Lymphocytes # (Manual) APTT POC ABG pH ABG pH POC ABG pCO2 POC ABG pO2 ABG pO2 ABG HCO3 ABG Base Excess ABG Hemoglobin VBG pH Oxyhemoglobin Sodium Potassium Chloride Carbon Dioxide BUN Creatinine Glucose POC Glucose 173 H 182 H 247 H Lactic Acid Calcium AST ALT Alkaline Phosphatase CK-MB (CK-2) CK-MB (CK-2) Rel Index Total Protein Albumin TSH Urine WBC (Auto) Salicylates 05/01/17 05/01/17 05/01/17 05:04 15:37 18:50 WBC RBC Hgb Hct MCV MCH RDW Plt Count Lymph % (Auto) Bradford % (Auto) Eos % (Auto) Bradford # Seg Neutrophils % Seg Neuts % (Manual) Lymphocytes % (Manual) Seg Neutrophils # Seg Neutrophils # Man Lymphocytes # (Manual) APTT POC ABG pH ABG pH POC ABG pCO2 POC ABG pO2 ABG pO2 ABG HCO3 ABG Base Excess ABG Hemoglobin VBG pH Oxyhemoglobin Sodium Potassium Chloride Carbon Dioxide BUN Creatinine Glucose POC Glucose 335 H 68 L 144 H Lactic Acid Calcium AST ALT Alkaline Phosphatase CK-MB (CK-2) CK-MB (CK-2) Rel Index Total Protein Albumin TSH Urine WBC (Auto) Salicylates 05/01/17 05/02/17 05/02/17 22:13 04:59 14:06 WBC RBC Hgb Hct MCV MCH RDW Plt Count Lymph % (Auto) Bradford % (Auto) Eos % (Auto) Bradford # Seg Neutrophils % Seg Neuts % (Manual) Lymphocytes % (Manual) Seg Neutrophils # Seg Neutrophils # Man Lymphocytes # (Manual) APTT POC ABG pH ABG pH POC ABG pCO2 POC ABG pO2 ABG pO2 ABG HCO3 ABG Base Excess ABG Hemoglobin VBG pH Oxyhemoglobin Sodium Potassium Chloride Carbon Dioxide BUN Creatinine Glucose POC Glucose 192 H 225 H 165 H Lactic Acid Calcium AST ALT Alkaline Phosphatase CK-MB (CK-2) CK-MB (CK-2) Rel Index Total Protein Albumin TSH Urine WBC (Auto) Salicylates 05/02/17 05/03/17 05/03/17 21:20 05:16 16:56 WBC RBC Hgb Hct MCV MCH RDW Plt Count Lymph % (Auto) Bradford % (Auto) Eos % (Auto) Bradford # Seg Neutrophils % Seg Neuts % (Manual) Lymphocytes % (Manual) Seg Neutrophils # Seg Neutrophils # Man Lymphocytes # (Manual) APTT POC ABG pH ABG pH POC ABG pCO2 POC ABG pO2 ABG pO2 ABG HCO3 ABG Base Excess ABG Hemoglobin VBG pH Oxyhemoglobin Sodium Potassium Chloride Carbon Dioxide BUN Creatinine Glucose POC Glucose 181 H 323 H 125 H Lactic Acid Calcium AST ALT Alkaline Phosphatase CK-MB (CK-2) CK-MB (CK-2) Rel Index Total Protein Albumin TSH Urine WBC (Auto) Salicylates 05/03/17 05/04/17 05/04/17 21:46 05:01 14:24 WBC RBC Hgb Hct MCV MCH RDW Plt Count Lymph % (Auto) Bradford % (Auto) Eos % (Auto) [place] # Seg Neutrophils % Seg Neuts % (Manual) Lymphocytes % (Manual) Seg Neutrophils # Seg Neutrophils # Man Lymphocytes # (Manual) APTT POC ABG pH ABG pH POC ABG pCO2 POC ABG pO2 ABG pO2 ABG HCO3 ABG Base Excess ABG Hemoglobin VBG pH Oxyhemoglobin Sodium Potassium Chloride Carbon Dioxide BUN Creatinine Glucose POC Glucose 210 H 360 H 219 H Lactic Acid Calcium AST ALT Alkaline Phosphatase CK-MB (CK-2) CK-MB (CK-2) Rel Index Total Protein Albumin TSH Urine WBC (Auto) Salicylates 05/04/17 05/05/17 05/05/17 21:39 01:58 05:13 WBC RBC Hgb Hct MCV MCH RDW Plt Count Lymph % (Auto) Bradford % (Auto) Eos % (Auto) [place] # Seg Neutrophils % Seg Neuts % (Manual) Lymphocytes % (Manual) Seg Neutrophils # Seg Neutrophils # Man Lymphocytes # (Manual) APTT POC ABG pH ABG pH POC ABG pCO2 POC ABG pO2 ABG pO2 ABG HCO3 ABG Base Excess ABG Hemoglobin VBG pH Oxyhemoglobin Sodium Potassium Chloride Carbon Dioxide BUN Creatinine Glucose POC Glucose 126 H 175 H 267 H Lactic Acid Calcium AST ALT Alkaline Phosphatase CK-MB (CK-2) CK-MB (CK-2) Rel Index Total Protein Albumin TSH Urine WBC (Auto) Salicylates 05/05/17 05/05/17 05/05/17 12:19 14:11 21:18 WBC RBC Hgb Hct MCV MCH RDW Plt Count Lymph % (Auto) Bradford % (Auto) Eos % (Auto) [place] # Seg Neutrophils % Seg Neuts % (Manual) Lymphocytes % (Manual) Seg Neutrophils # Seg Neutrophils # Man Lymphocytes # (Manual) APTT POC ABG pH ABG pH POC ABG pCO2 POC ABG pO2 ABG pO2 ABG HCO3 ABG Base Excess ABG Hemoglobin VBG pH Oxyhemoglobin Sodium Potassium Chloride Carbon Dioxide BUN Creatinine Glucose POC Glucose 221 H 205 H 156 H Lactic Acid Calcium AST ALT Alkaline Phosphatase CK-MB (CK-2) CK-MB (CK-2) Rel Index Total Protein Albumin TSH Urine WBC (Auto) Salicylates 05/06/17 06:02 WBC RBC Hgb Hct MCV MCH RDW Plt Count Lymph % (Auto) [place] % (Auto) Eos % (Auto) [place] # Seg Neutrophils % Seg Neuts % (Manual) Lymphocytes % (Manual) Seg Neutrophils # Seg Neutrophils # Man Lymphocytes # (Manual) APTT POC ABG pH ABG pH POC ABG pCO2 POC ABG pO2 ABG pO2 ABG HCO3 ABG Base Excess ABG Hemoglobin VBG pH Oxyhemoglobin Sodium Potassium Chloride Carbon Dioxide BUN Creatinine Glucose POC Glucose 263 H Lactic Acid Calcium AST ALT Alkaline Phosphatase CK-MB (CK-2) CK-MB (CK-2) Rel Index Total Protein Albumin TSH Urine WBC (Auto) Salicylates
[2017-05-07] MEDS: SYNTHROID PO SCH (06:02)
[2017-05-07] MEDS: HumuLIN R SUB-Q SCH ×3 (06:49→22:00)
[2017-05-07] MEDS: LEVEMIR (NF) SUB-Q SCH (10:18)
[2017-05-07] MEDS: HEPARIN SUB-Q SCH ×2 (10:18→21:59)
[2017-05-07] MEDS: PEPCID PO SCH ×2 (10:18→21:58)
--- NOTE | 2017-05-07 13:11 | Progress Note ---
Assessment and Plan Hypoglycemic brain injury Persistent vegetative state Metabolic encephalopathy Hypoglycemia/hypothermia, resolved Acute respiratory failure on mechanical ventilator dependent UTI with klebsiella, treated ( Cx + on 01/28), then with ESBL likely colonization hyponatremia, stable Hypothyroidism IDDM Hypertension low grade Fever, intermittently spikes temp - Cont supportive care and current medication. Monitor vitals, repeat cx on - no growth - increased dose of long acting insulin to 15 unit - Patient is DNR- needs guardianship from the state to give consent for further management, as has no family to give consent. Brief History: 51 YO Male with CKD,HTN, DM presents to ED after found down and unresponsive by his neighbor, who subsequently called EMS. Upon arrival, patient found unresponsive on the floor with a serum glucose of 21, patient has a known history of alcohol abuse and delirium tremens. The patient was administered D5 approximate 500 mls during transport without change in mental status/level of consciousness. Pt seen and evaluated in ED was was found to be unable to protect his airway. Pt intubated and placed on vent support. Pt found to have evidence of hypothyroidism. He was started on Synthroid. He has since been in the ICU. employee services manager try to locate family, even spoke to the family who he lives with. They themselves were unaware of any family members. After ethics committee meeting on the patient. The decision was made to make him DO NOT RESUSCITATE and to transfer him to hospice. Given his very poor prognosis and poor likelihood of recovery. It was decided that was not his best interest to get trach and PEG. Therefore he'll be transferred to the hospice intubated. Now Awaiting on court ordered /state guardianship. Hospitalist Physical - Physical exam Narrative exam: General: comatose HEENT: Moist mucous membranes, , no lymphadenopathy Neck: supple Cardiac: S1-S2 heard Lungs: mechnical ventilated breath sounds Abdomen: soft , nontender, nondistended, bowel sounds positive Extremities: no edema clubbing or cyanosis Skin: no rash or lesions Neurologic: opens eyes, withdraws from painful stimuli, does not follow commend Subjective Date of service: 05/07/17 Principal diagnosis: Acute respiratory failure,encephalopathy Interval history: patient remains comatose, no movement of extremities no clinical change afebrile o/n Objective - Constitutional Vitals: Vital Signs - 12hr 05/07/17 05/07/17 05/07/17 02:01 04:00 04:30 Temperature 99.0 F Pulse Rate 76 76 97 H Respiratory 14 12 Rate Blood Pressure 109/72 106/64 106/64 O2 Sat by Pulse 98 95 97 Oximetry 05/07/17 05/07/17 05/07/17 06:01 07:43 08:00 Temperature 98.3 F Pulse Rate 85 97 H Respiratory 17 Rate Blood Pressure 106/64 112/69 O2 Sat by Pulse 94 96 Oximetry 05/07/17 05/07/17 05/07/17 08:01 11:37 12:00 Temperature 98.9 F Pulse Rate 84 102 H Respiratory 19 Rate Blood Pressure 112/69 59/30 O2 Sat by Pulse 97 97 Oximetry - Labs CBC & Chem 7: 04/28/17 05:10 04/28/17 05:10 Labs: Abnormal lab results 05/06/17 05/06/17 05/07/17 Range/Units 15:26 21:43 05:52 POC Glucose 143 H 145 H 242 H (70-105)
[2017-05-07] MEDS ORDERED: D50W (25GM) Syringe IV ONE (21:48)
[2017-05-08] MEDS: SYNTHROID PO SCH (06:37)
[2017-05-08] MEDS: HumuLIN R SUB-Q SCH ×2 (06:38→15:48)
[2017-05-08] MEDS: HEPARIN SUB-Q SCH (09:44)
[2017-05-08] MEDS: LEVEMIR (NF) SUB-Q SCH (09:45)
[2017-05-08] MEDS: PEPCID PO SCH (09:46)
--- NOTE | 2017-05-08 14:19 | Progress Note ---
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 (6) UTI (urinary tract infection) Current Visit: Yes Status: Acute (7) Pyelonephritis Current Visit: No Status: Acute (8) Renal insufficiency Current Visit: No Status: Acute (9) SIRS (systemic inflammatory response syndrome) Current Visit: No Status: Acute Subjective Principal diagnosis: Acute respiratory failure,encephalopathy Interval history: on vent ac 12 tv 500 25 mv 7.02 Objective Vital Signs - 12hr 05/08/17 05/08/17 05/08/17 04:00 04:51 08:00 Temperature 97.5 F L 97.8 F Pulse Rate 91 H O2 Sat by Pulse 99 Oximetry 05/08/17 05/08/17 11:38 11:55 Temperature 98.5 F Pulse Rate O2 Sat by Pulse 99 Oximetry Constitutional: no acute distress, alert, other (on vent) Eyes: non-icteric ENT: oropharynx moist, other (ETT in position) Neck: supple Effort: normal Ascultation: Bilateral: diminished breath sounds Cardiovascular: regular rate and rhythm (no mrg) Gastrointestinal: normoactive bowel sounds, soft, non-tender, non-distended Integumentary: normal Extremities: no cyanosis, no edema, pink and warm Neurologic: pupils equal and round, other (not following commands,mild response to pain) Psychiatric: other (unable to obtain) CBC and BMP: 04/28/17 05:10 04/28/17 05:10 ABG, PT/INR, D-dimer: ABG POC ABG pH 7.442 (7.35-7.45) 01/31/17 18:55 ABG pH 7.420 pH Units (7.350-7.450) 01/17/17 04:35 POC ABG pCO2 32.8 (35-45) L 01/31/17 18:55 ABG pCO2 34.5 mm Hg 01/17/17 04:35 POC ABG pO2 82 (80-105) 01/31/17 18:55 ABG pO2 160.3 mm Hg (80.0-90.0) H 01/17/17 04:35 POC ABG HCO3 22.4 01/31/17 18:55 POC ABG Total CO2 23 01/31/17 18:55 POC ABG O2 Sat 97 01/31/17 18:55 ABG O2 Saturation 99.0 % (95.0-99.0) 01/17/17 04:35 PT/INR, D-dimer PT 14.1 Sec. (12.2-14.9) 01/17/17 04:10 INR 1.04 (0.87-1.13) 01/17/17 04:10 Abnormal lab findings: Abnormal Labs 01/09/17 01/09/17 01/09/17 10:16 10:16 10:16 WBC RBC Hgb 9.7 L Hct 28.4 L MCV 76 L MCH 26 L RDW 17.2 H Plt Count 448 H Lymph % (Auto) [place] % (Auto) Eos % (Auto) [place] # Seg Neutrophils % 79.5 H Seg Neuts % (Manual) Lymphocytes % (Manual) Seg Neutrophils # Seg Neutrophils # Man Lymphocytes # (Manual) APTT 39.6 H POC ABG pH ABG pH POC ABG pCO2 POC ABG pO2 ABG pO2 ABG HCO3 ABG Base Excess ABG Hemoglobin VBG pH Oxyhemoglobin Sodium 132 L Potassium Chloride 96.7 L Carbon Dioxide 21 L BUN 34 H Creatinine Glucose POC Glucose Lactic Acid Calcium 8.3 L AST ALT Alkaline Phosphatase 151 H CK-MB (CK-2) 7.1 H CK-MB (CK-2) Rel Index 5.2 H Total Protein Albumin 3.3 L TSH Urine WBC (Auto) Salicylates 01/09/17 01/09/17 01/09/17 10:16 10:16 10:16 WBC RBC Hgb Hct MCV MCH RDW Plt Count Lymph % (Auto) [place] % (Auto) Eos % (Auto) [place] # Seg Neutrophils % Seg Neuts % (Manual) Lymphocytes % (Manual) Seg Neutrophils # Seg Neutrophils # Man Lymphocytes # (Manual) APTT POC ABG pH ABG pH POC ABG pCO2 POC ABG pO2 ABG pO2 ABG HCO3 ABG Base Excess ABG Hemoglobin VBG pH 7.284 L Oxyhemoglobin Sodium Potassium Chloride Carbon Dioxide BUN Creatinine Glucose POC Glucose Lactic Acid Calcium AST ALT Alkaline Phosphatase CK-MB (CK-2) CK-MB (CK-2) Rel Index Total Protein Albumin TSH 52.800 H Urine WBC (Auto) Salicylates < 0.3 L 01/09/17 01/09/17 01/09/17 10:23 11:14 12:49 WBC RBC Hgb Hct MCV MCH RDW Plt Count Lymph % (Auto) [place] % (Auto) Eos % (Auto) [place] # Seg Neutrophils % Seg Neuts % (Manual) Lymphocytes % (Manual) Seg Neutrophils # Seg Neutrophils # Man Lymphocytes # (Manual) APTT POC ABG pH ABG pH POC ABG pCO2 POC ABG pO2 643 H ABG pO2 ABG HCO3 ABG Base Excess ABG Hemoglobin VBG pH Oxyhemoglobin Sodium Potassium Chloride Carbon Dioxide BUN Creatinine Glucose POC Glucose < 40 L Lactic Acid Calcium AST ALT Alkaline Phosphatase CK-MB (CK-2) CK-MB (CK-2) Rel Index Total Protein Albumin TSH Urine WBC (Auto) 61.0 H Salicylates 01/09/17 01/09/17 01/09/17 13:13 14:21 15:09 WBC RBC Hgb Hct MCV MCH RDW Plt Count Lymph % (Auto) [place] % (Auto) Eos % (Auto) [place] # Seg Neutrophils % Seg Neuts % (Manual) Lymphocytes % (Manual) Seg Neutrophils # Seg Neutrophils # Man Lymphocytes # (Manual) APTT POC ABG pH ABG pH POC ABG pCO2 POC ABG pO2 ABG pO2 ABG HCO3 ABG Base Excess ABG Hemoglobin VBG pH Oxyhemoglobin Sodium Potassium Chloride Carbon Dioxide BUN Creatinine Glucose POC Glucose 128 H 65 L 120 H Lactic Acid Calcium AST ALT Alkaline Phosphatase CK-MB (CK-2) CK-MB (CK-2) Rel Index Total Protein Albumin TSH Urine WBC (Auto) Salicylates 01/09/17 01/09/17 01/10/17 16:28 17:14 04:30 WBC 24.1 H RBC 3.38 L Hgb 8.5 L Hct 26.0 L MCV 77 L MCH 25 L RDW 17.9 H Plt Count 474 H Lymph % (Auto) [place] % (Auto) Eos % (Auto) [place] # Seg Neutrophils % Seg Neuts % (Manual) 88.0 H Lymphocytes % (Manual) 4.0 L Seg Neutrophils # Seg Neutrophils # Man 21.2 H Lymphocytes # (Manual) 1.0 L APTT POC ABG pH ABG pH POC ABG pCO2 POC ABG pO2 ABG pO2 ABG HCO3 ABG Base Excess ABG Hemoglobin VBG pH Oxyhemoglobin Sodium Potassium Chloride Carbon Dioxide BUN Creatinine Glucose POC Glucose 44 L 112 H Lactic Acid Calcium AST ALT Alkaline Phosphatase CK-MB (CK-2) CK-MB (CK-2) Rel Index Total Protein Albumin TSH Urine WBC (Auto) Salicylates 01/10/17 01/10/17 01/10/17 04:30 05:41 05:45 WBC RBC Hgb Hct MCV MCH RDW Plt Count Lymph % (Auto) [place] % (Auto) Eos % (Auto) [place] # Seg Neutrophils % Seg Neuts % (Manual) Lymphocytes % (Manual) Seg Neutrophils # Seg Neutrophils # Man Lymphocytes # (Manual) APTT POC ABG pH ABG pH POC ABG pCO2 26.6 L POC ABG pO2 207 H ABG pO2 ABG HCO3 ABG Base Excess ABG Hemoglobin VBG pH Oxyhemoglobin Sodium Potassium Chloride Carbon Dioxide 17 L BUN 27 H Creatinine Glucose POC Glucose 68 L Lactic Acid Calcium 7.5 L AST ALT Alkaline Phosphatase CK-MB (CK-2) CK-MB (CK-2) Rel Index Total Protein Albumin TSH Urine WBC (Auto) Salicylates 01/10/17 01/10/17 01/10/17 07:47 10:50 13:41 WBC RBC Hgb Hct MCV MCH RDW Plt Count Lymph % (Auto) [place] % (Auto) Eos % (Auto) [place] # Seg Neutrophils % Seg Neuts % (Manual) Lymphocytes % (Manual) Seg Neutrophils # Seg Neutrophils # Man Lymphocytes # (Manual) APTT POC ABG pH ABG pH POC ABG pCO2 POC ABG pO2 ABG pO2 ABG HCO3 ABG Base Excess ABG Hemoglobin VBG pH Oxyhemoglobin Sodium Potassium Chloride Carbon Dioxide BUN Creatinine Glucose POC Glucose 148 H 165 H 114 H Lactic Acid Calcium AST ALT Alkaline Phosphatase CK-MB (CK-2) CK-MB (CK-2) Rel Index Total Protein Albumin TSH Urine WBC (Auto) Salicylates 01/10/17 01/10/17 01/10/17 20:20 21:39 23:24 WBC RBC Hgb Hct MCV MCH RDW Plt Count Lymph % (Auto) [place] % (Auto) Eos % (Auto) [place] # Seg Neutrophils % Seg Neuts % (Manual) Lymphocytes % (Manual) Seg Neutrophils # Seg Neutrophils # Man Lymphocytes # (Manual) APTT POC ABG pH ABG pH POC ABG pCO2 POC ABG pO2 ABG pO2 ABG HCO3 ABG Base Excess ABG Hemoglobin VBG pH Oxyhemoglobin Sodium Potassium Chloride Carbon Dioxide BUN Creatinine Glucose POC Glucose 150 H 175 H 155 H Lactic Acid Calcium AST ALT Alkaline Phosphatase CK-MB (CK-2) CK-MB (CK-2) Rel Index Total Protein Albumin TSH Urine WBC (Auto) Salicylates 01/11/17 01/11/17 01/11/17 00:19 04:06 05:20 WBC 15.2 H RBC 3.40 L Hgb 8.9 L Hct 26.3 L MCV 78 L MCH 26 L RDW 18.6 H Plt Count 462 H Lymph % (Auto) 13.2 L [place] % (Auto) Eos % (Auto) [place] # Seg Neutrophils % 80.8 H Seg Neuts % (Manual) Lymphocytes % (Manual) Seg Neutrophils # 12.3 H Seg Neutrophils # Man Lymphocytes # (Manual) APTT POC ABG pH 7.463 H ABG pH POC ABG pCO2 26.2 L POC ABG pO2 185 H ABG pO2 ABG HCO3 ABG Base Excess ABG Hemoglobin VBG pH Oxyhemoglobin Sodium Potassium Chloride Carbon Dioxide BUN Creatinine Glucose POC Glucose 163 H Lactic Acid Calcium AST ALT Alkaline Phosphatase CK-MB (CK-2) CK-MB (CK-2) Rel Index Total Protein Albumin TSH Urine WBC (Auto) Salicylates 01/11/17 01/11/17 01/11/17 05:20 06:21 07:57 WBC RBC Hgb Hct MCV MCH RDW Plt Count Lymph % (Auto) [place] % (Auto) Eos % (Auto) [place] # Seg Neutrophils % Seg Neuts % (Manual) Lymphocytes % (Manual) Seg Neutrophils # Seg Neutrophils # Man Lymphocytes # (Manual) APTT POC ABG pH ABG pH POC ABG pCO2 POC ABG pO2 ABG pO2 ABG HCO3 ABG Base Excess ABG Hemoglobin VBG pH Oxyhemoglobin Sodium Potassium 3.4 L Chloride 111.5 H Carbon Dioxide 17 L BUN Creatinine Glucose 147 H POC Glucose 139 H 188 H Lactic Acid Calcium 8.0 L AST ALT Alkaline Phosphatase CK-MB (CK-2) CK-MB (CK-2) Rel Index Total Protein Albumin TSH Urine WBC (Auto) Salicylates 01/11/17 01/11/17 01/11/17 11:46 16:50 23:15 WBC RBC Hgb Hct MCV MCH RDW Plt Count Lymph % (Auto) [place] % (Auto) Eos % (Auto) [place] # Seg Neutrophils % Seg Neuts % (Manual) Lymphocytes % (Manual) Seg Neutrophils # Seg Neutrophils # Man Lymphocytes # (Manual) APTT POC ABG pH ABG pH POC ABG pCO2 POC ABG pO2 ABG pO2 ABG HCO3 ABG Base Excess ABG Hemoglobin VBG pH Oxyhemoglobin Sodium Potassium Chloride Carbon Dioxide BUN Creatinine Glucose POC Glucose 199 H 235 H 155 H Lactic Acid Calcium AST ALT Alkaline Phosphatase CK-MB (CK-2) CK-MB (CK-2) Rel Index Total Protein Albumin TSH Urine WBC (Auto) Salicylates 01/12/17 01/12/17 01/12/17 05:02 06:56 14:50 WBC RBC Hgb Hct MCV MCH RDW Plt Count Lymph % (Auto) [place] % (Auto) Eos % (Auto) [place] # Seg Neutrophils % Seg Neuts % (Manual) Lymphocytes % (Manual) Seg Neutrophils # Seg Neutrophils # Man Lymphocytes # (Manual) APTT POC ABG pH ABG pH POC ABG pCO2 28.0 L POC ABG pO2 178 H ABG pO2 ABG HCO3 ABG Base Excess ABG Hemoglobin VBG pH Oxyhemoglobin Sodium Potassium Chloride Carbon Dioxide BUN Creatinine Glucose POC Glucose 119 H 164 H Lactic Acid Calcium AST ALT Alkaline Phosphatase CK-MB (CK-2) CK-MB (CK-2) Rel Index Total Protein Albumin TSH Urine WBC (Auto) Salicylates 01/13/17 01/13/17 01/13/17 03:37 03:37 04:26 WBC RBC 3.61 L Hgb 9.3 L Hct 28.0 L MCV 78 L MCH 26 L RDW 18.2 H Plt Count Lymph % (Auto) [place] % (Auto) Eos % (Auto) [place] # Seg Neutrophils % Seg Neuts % (Manual) Lymphocytes % (Manual) Seg Neutrophils # Seg Neutrophils # Man Lymphocytes # (Manual) APTT POC ABG pH 7.485 H ABG pH POC ABG pCO2 25.4 L POC ABG pO2 73 L ABG pO2 ABG HCO3 ABG Base Excess ABG Hemoglobin VBG pH Oxyhemoglobin Sodium Potassium Chloride 112.4 H Carbon Dioxide 19 L BUN Creatinine Glucose 118 H POC Glucose Lactic Acid Calcium 8.0 L AST ALT Alkaline Phosphatase CK-MB (CK-2) CK-MB (CK-2) Rel Index Total Protein Albumin TSH Urine WBC (Auto) Salicylates 01/13/17 01/13/17 01/13/17 06:15 11:50 17:31 WBC RBC Hgb Hct MCV MCH RDW Plt Count Lymph % (Auto) [place] % (Auto) Eos % (Auto) [place] # Seg Neutrophils % Seg Neuts % (Manual) Lymphocytes % (Manual) Seg Neutrophils # Seg Neutrophils # Man Lymphocytes # (Manual) APTT POC ABG pH ABG pH POC ABG pCO2 POC ABG pO2 ABG pO2 ABG HCO3 ABG Base Excess ABG Hemoglobin VBG pH Oxyhemoglobin Sodium Potassium Chloride Carbon Dioxide BUN Creatinine Glucose POC Glucose 116 H 171 H 203 H Lactic Acid Calcium AST ALT Alkaline Phosphatase CK-MB (CK-2) CK-MB (CK-2) Rel Index Total Protein Albumin TSH Urine WBC (Auto) Salicylates 01/14/17 01/14/17 01/14/17 00:02 04:50 04:50 WBC RBC 3.32 L Hgb 8.5 L Hct 26.1 L MCV 79 L MCH 26 L RDW 18.2 H Plt Count Lymph % (Auto) [place] % (Auto) 9.0 H Eos % (Auto) [place] # Seg Neutrophils % Seg Neuts % (Manual) Lymphocytes % (Manual) Seg Neutrophils # Seg Neutrophils # Man Lymphocytes # (Manual) APTT POC ABG pH ABG pH POC ABG pCO2 POC ABG pO2 ABG pO2 ABG HCO3 ABG Base Excess ABG Hemoglobin VBG pH Oxyhemoglobin Sodium Potassium Chloride 112.5 H Carbon Dioxide BUN Creatinine Glucose 149 H POC Glucose 157 H Lactic Acid Calcium 8.1 L AST ALT Alkaline Phosphatase CK-MB (CK-2) CK-MB (CK-2) Rel Index Total Protein Albumin TSH Urine WBC (Auto) Salicylates 01/14/17 01/14/17 01/14/17 05:10 11:27 14:07 WBC RBC Hgb Hct MCV MCH RDW Plt Count Lymph % (Auto) [place] % (Auto) Eos % (Auto) [place] # Seg Neutrophils % Seg Neuts % (Manual) Lymphocytes % (Manual) Seg Neutrophils # Seg Neutrophils # Man Lymphocytes # (Manual) APTT POC ABG pH ABG pH POC ABG pCO2 POC ABG pO2 ABG pO2 ABG HCO3 ABG Base Excess ABG Hemoglobin VBG pH Oxyhemoglobin Sodium Potassium Chloride Carbon Dioxide BUN Creatinine Glucose POC Glucose 176 H 147 H Lactic Acid Calcium AST ALT Alkaline Phosphatase CK-MB (CK-2) CK-MB (CK-2) Rel Index Total Protein Albumin TSH Urine WBC (Auto) 53.0 H Salicylates 01/14/17 01/15/17 01/15/17 16:52 00:04 05:26 WBC RBC Hgb Hct MCV MCH RDW Plt Count Lymph % (Auto) [place] % (Auto) Eos % (Auto) [place] # Seg Neutrophils % Seg Neuts % (Manual) Lymphocytes % (Manual) Seg Neutrophils # Seg Neutrophils # Man Lymphocytes # (Manual) APTT POC ABG pH ABG pH POC ABG pCO2 POC ABG pO2 ABG pO2 ABG HCO3 ABG Base Excess ABG Hemoglobin VBG pH Oxyhemoglobin Sodium Potassium Chloride Carbon Dioxide BUN Creatinine Glucose POC Glucose 131 H 193 H 215 H Lactic Acid Calcium AST ALT Alkaline Phosphatase CK-MB (CK-2) CK-MB (CK-2) Rel Index Total Protein Albumin TSH Urine WBC (Auto) Salicylates 01/15/17 01/15/17 01/15/17 11:49 17:47 21:33 WBC RBC Hgb Hct MCV MCH RDW Plt Count Lymph % (Auto) [place] % (Auto) Eos % (Auto) [place] # Seg Neutrophils % Seg Neuts % (Manual) Lymphocytes % (Manual) Seg Neutrophils # Seg Neutrophils # Man Lymphocytes # (Manual) APTT POC ABG pH ABG pH POC ABG pCO2 POC ABG pO2 ABG pO2 ABG HCO3 ABG Base Excess ABG Hemoglobin VBG pH Oxyhemoglobin Sodium Potassium Chloride Carbon Dioxide BUN Creatinine Glucose POC Glucose 121 H 211 H 275 H Lactic Acid Calcium AST ALT Alkaline Phosphatase CK-MB (CK-2) CK-MB (CK-2) Rel Index Total Protein Albumin TSH Urine WBC (Auto) Salicylates 01/16/17 01/16/17 01/16/17 04:30 05:28 13:45 WBC RBC Hgb Hct MCV MCH RDW Plt Count Lymph % (Auto) [place] % (Auto) Eos % (Auto) [place] # Seg Neutrophils % Seg Neuts % (Manual) Lymphocytes % (Manual) Seg Neutrophils # Seg Neutrophils # Man Lymphocytes # (Manual) APTT POC ABG pH ABG pH 7.457 H POC ABG pCO2 POC ABG pO2 ABG pO2 55.1 L ABG HCO3 19.4 L ABG Base Excess -4.0 L ABG Hemoglobin 6.8 L VBG pH Oxyhemoglobin 94.9 L Sodium Potassium Chloride Carbon Dioxide BUN Creatinine Glucose POC Glucose 271 H 236 H Lactic Acid Calcium AST ALT Alkaline Phosphatase CK-MB (CK-2) CK-MB (CK-2) Rel Index Total Protein Albumin TSH Urine WBC (Auto) Salicylates 01/16/17 01/17/17 01/17/17 21:39 04:10 04:10 WBC 4.4 L RBC 2.98 L Hgb 7.7 L Hct 23.3 L MCV 78 L MCH 26 L RDW 18.1 H Plt Count Lymph % (Auto) [place] % (Auto) Eos % (Auto) [place] # Seg Neutrophils % Seg Neuts % (Manual) Lymphocytes % (Manual) Seg Neutrophils # Seg Neutrophils # Man Lymphocytes # (Manual) APTT POC ABG pH ABG pH POC ABG pCO2 POC ABG pO2 ABG pO2 ABG HCO3 ABG Base Excess ABG Hemoglobin VBG pH Oxyhemoglobin Sodium Potassium 3.3 L Chloride 108.7 H Carbon Dioxide 20 L BUN 8 L Creatinine Glucose 202 H POC Glucose 258 H Lactic Acid Calcium 7.6 L AST ALT Alkaline Phosphatase CK-MB (CK-2) CK-MB (CK-2) Rel Index Total Protein Albumin TSH Urine WBC (Auto) Salicylates 01/17/17 01/17/17 01/17/17 04:35 12:23 16:01 WBC RBC Hgb Hct MCV MCH RDW Plt Count Lymph % (Auto) [place] % (Auto) Eos % (Auto) [place] # Seg Neutrophils % Seg Neuts % (Manual) Lymphocytes % (Manual) Seg Neutrophils # Seg Neutrophils # Man Lymphocytes # (Manual) APTT POC ABG pH ABG pH POC ABG pCO2 POC ABG pO2 ABG pO2 160.3 H ABG HCO3 ABG Base Excess -2.3 L ABG Hemoglobin 7.9 L VBG pH Oxyhemoglobin Sodium Potassium Chloride Carbon Dioxide BUN Creatinine Glucose POC Glucose 321 H 239 H Lactic Acid Calcium AST ALT Alkaline Phosphatase CK-MB (CK-2) CK-MB (CK-2) Rel Index Total Protein Albumin TSH Urine WBC (Auto) Salicylates 01/18/17 01/18/17 01/18/17 05:07 12:09 17:54 WBC RBC Hgb Hct MCV MCH RDW Plt Count Lymph % (Auto) [place] % (Auto) Eos % (Auto) [place] # Seg Neutrophils % Seg Neuts % (Manual) Lymphocytes % (Manual) Seg Neutrophils # Seg Neutrophils # Man Lymphocytes # (Manual) APTT POC ABG pH ABG pH POC ABG pCO2 POC ABG pO2 ABG pO2 ABG HCO3 ABG Base Excess ABG Hemoglobin VBG pH Oxyhemoglobin Sodium Potassium Chloride Carbon Dioxide BUN Creatinine Glucose POC Glucose 155 H 203 H 132 H Lactic Acid Calcium AST ALT Alkaline Phosphatase CK-MB (CK-2) CK-MB (CK-2) Rel Index Total Protein Albumin TSH Urine WBC (Auto) Salicylates 01/18/17 01/19/17 01/19/17 23:43 04:28 12:11 WBC RBC Hgb Hct MCV MCH RDW Plt Count Lymph % (Auto) [place] % (Auto) Eos % (Auto) [place] # Seg Neutrophils % Seg Neuts % (Manual) Lymphocytes % (Manual) Seg Neutrophils # Seg Neutrophils # Man Lymphocytes # (Manual) APTT POC ABG pH ABG pH POC ABG pCO2 POC ABG pO2 ABG pO2 ABG HCO3 ABG Base Excess ABG Hemoglobin VBG pH Oxyhemoglobin Sodium Potassium Chloride Carbon Dioxide BUN Creatinine Glucose POC Glucose 125 H 182 H 153 H Lactic Acid Calcium AST ALT Alkaline Phosphatase CK-MB (CK-2) CK-MB (CK-2) Rel Index Total Protein Albumin TSH Urine WBC (Auto) Salicylates 01/19/17 01/20/17 01/20/17 17:23 00:12 05:44 WBC RBC Hgb Hct MCV MCH RDW Plt Count Lymph % (Auto) [place] % (Auto) Eos % (Auto) [place] # Seg Neutrophils % Seg Neuts % (Manual) Lymphocytes % (Manual) Seg Neutrophils # Seg Neutrophils # Man Lymphocytes # (Manual) APTT POC ABG pH ABG pH POC ABG pCO2 POC ABG pO2 ABG pO2 ABG HCO3 ABG Base Excess ABG Hemoglobin VBG pH Oxyhemoglobin Sodium Potassium Chloride Carbon Dioxide BUN Creatinine Glucose POC Glucose 66 L 139 H 176 H Lactic Acid Calcium AST ALT Alkaline Phosphatase CK-MB (CK-2) CK-MB (CK-2) Rel Index Total Protein Albumin TSH Urine WBC (Auto) Salicylates 01/20/17 01/20/17 01/20/17 11:48 17:42 23:43 WBC RBC Hgb Hct MCV MCH RDW Plt Count Lymph % (Auto) [place] % (Auto) Eos % (Auto) [place] # Seg Neutrophils % Seg Neuts % (Manual) Lymphocytes % (Manual) Seg Neutrophils # Seg Neutrophils # Man Lymphocytes # (Manual) APTT POC ABG pH ABG pH POC ABG pCO2 POC ABG pO2 ABG pO2 ABG HCO3 ABG Base Excess ABG Hemoglobin VBG pH Oxyhemoglobin Sodium Potassium Chloride Carbon Dioxide BUN Creatinine Glucose POC Glucose 218 H 132 H 178 H Lactic Acid Calcium AST ALT Alkaline Phosphatase CK-MB (CK-2) CK-MB (CK-2) Rel Index Total Protein Albumin TSH Urine WBC (Auto) Salicylates 01/21/17 01/21/17 01/21/17 05:34 11:17 23:37 WBC RBC Hgb Hct MCV MCH RDW Plt Count Lymph % (Auto) [place] % (Auto) Eos % (Auto) [place] # Seg Neutrophils % Seg Neuts % (Manual) Lymphocytes % (Manual) Seg Neutrophils # Seg Neutrophils # Man Lymphocytes # (Manual) APTT POC ABG pH ABG pH POC ABG pCO2 POC ABG pO2 ABG pO2 ABG HCO3 ABG Base Excess ABG Hemoglobin VBG pH Oxyhemoglobin Sodium Potassium Chloride Carbon Dioxide BUN Creatinine Glucose POC Glucose 106 H 213 H 140 H Lactic Acid Calcium AST ALT Alkaline Phosphatase CK-MB (CK-2) CK-MB (CK-2) Rel Index Total Protein Albumin TSH Urine WBC (Auto) Salicylates 01/22/17 01/22/17 01/22/17 04:00 04:00 04:58 WBC RBC 3.26 L Hgb 8.3 L Hct 25.5 L MCV 78 L MCH 25 L RDW 17.9 H Plt Count Lymph % (Auto) [place] % (Auto) 7.9 H Eos % (Auto) 6.2 H [place] # Seg Neutrophils % Seg Neuts % (Manual) Lymphocytes % (Manual) Seg Neutrophils # Seg Neutrophils # Man Lymphocytes # (Manual) APTT POC ABG pH ABG pH POC ABG pCO2 POC ABG pO2 ABG pO2 ABG HCO3 ABG Base Excess ABG Hemoglobin VBG pH Oxyhemoglobin Sodium Potassium Chloride 95.5 L Carbon Dioxide 31 H D BUN Creatinine Glucose 134 H POC Glucose 146 H Lactic Acid Calcium AST 44 H ALT Alkaline Phosphatase 379 H CK-MB (CK-2) CK-MB (CK-2) Rel Index Total Protein Albumin 2.7 L TSH Urine WBC (Auto) Salicylates 01/22/17 01/22/17 01/22/17 12:12 18:12 23:39 WBC RBC Hgb Hct MCV MCH RDW Plt Count Lymph % (Auto) [place] % (Auto) Eos % (Auto) [place] # Seg Neutrophils % Seg Neuts % (Manual) Lymphocytes % (Manual) Seg Neutrophils # Seg Neutrophils # Man Lymphocytes # (Manual) APTT POC ABG pH ABG pH POC ABG pCO2 POC ABG pO2 ABG pO2 ABG HCO3 ABG Base Excess ABG Hemoglobin VBG pH Oxyhemoglobin Sodium Potassium Chloride Carbon Dioxide BUN Creatinine Glucose POC Glucose 255 H 182 H 134 H Lactic Acid Calcium AST ALT Alkaline Phosphatase CK-MB (CK-2) CK-MB (CK-2) Rel Index Total Protein Albumin TSH Urine WBC (Auto) Salicylates 01/23/17 01/23/17 01/23/17 04:43 12:12 17:36 WBC RBC Hgb Hct MCV MCH RDW Plt Count Lymph % (Auto) [place] % (Auto) Eos % (Auto) [place] # Seg Neutrophils % Seg Neuts % (Manual) Lymphocytes % (Manual) Seg Neutrophils # Seg Neutrophils # Man Lymphocytes # (Manual) APTT POC ABG pH ABG pH POC ABG pCO2 POC ABG pO2 ABG pO2 ABG HCO3 ABG Base Excess ABG Hemoglobin VBG pH Oxyhemoglobin Sodium Potassium Chloride Carbon Dioxide BUN Creatinine Glucose POC Glucose 218 H 128 H 156 H Lactic Acid Calcium AST ALT Alkaline Phosphatase CK-MB (CK-2) CK-MB (CK-2) Rel Index Total Protein Albumin TSH Urine WBC (Auto) Salicylates 01/24/17 01/24/17 01/24/17 00:08 05:16 11:40 WBC RBC Hgb Hct MCV MCH RDW Plt Count Lymph % (Auto) [place] % (Auto) Eos % (Auto) [place] # Seg Neutrophils % Seg Neuts % (Manual) Lymphocytes % (Manual) Seg Neutrophils # Seg Neutrophils # Man Lymphocytes # (Manual) APTT POC ABG pH ABG pH POC ABG pCO2 POC ABG pO2 ABG pO2 ABG HCO3 ABG Base Excess ABG Hemoglobin VBG pH Oxyhemoglobin Sodium Potassium Chloride Carbon Dioxide BUN Creatinine Glucose POC Glucose 129 H 169 H 187 H Lactic Acid Calcium AST ALT Alkaline Phosphatase CK-MB (CK-2) CK-MB (CK-2) Rel Index Total Protein Albumin TSH Urine WBC (Auto) Salicylates 01/24/17 01/24/17 01/25/17 17:43 23:23 04:56 WBC RBC Hgb Hct MCV MCH RDW Plt Count Lymph % (Auto) [place] % (Auto) Eos % (Auto) [place] # Seg Neutrophils % Seg Neuts % (Manual) Lymphocytes % (Manual) Seg Neutrophils # Seg Neutrophils # Man Lymphocytes # (Manual) APTT POC ABG pH ABG pH POC ABG pCO2 POC ABG pO2 ABG pO2 ABG HCO3 ABG Base Excess ABG Hemoglobin VBG pH Oxyhemoglobin Sodium Potassium Chloride Carbon Dioxide BUN Creatinine Glucose POC Glucose 215 H 222 H 210 H Lactic Acid Calcium AST ALT Alkaline Phosphatase CK-MB (CK-2) CK-MB (CK-2) Rel Index Total Protein Albumin TSH Urine WBC (Auto) Salicylates 01/25/17 01/25/17 01/26/17 11:52 17:37 00:02 WBC RBC Hgb Hct MCV MCH RDW Plt Count Lymph % (Auto) [place] % (Auto) Eos % (Auto) [place] # Seg Neutrophils % Seg Neuts % (Manual) Lymphocytes % (Manual) Seg Neutrophils # Seg Neutrophils # Man Lymphocytes # (Manual) APTT POC ABG pH ABG pH POC ABG pCO2 POC ABG pO2 ABG pO2 ABG HCO3 ABG Base Excess ABG Hemoglobin VBG pH Oxyhemoglobin Sodium Potassium Chloride Carbon Dioxide BUN Creatinine Glucose POC Glucose 284 H 218 H 192 H Lactic Acid Calcium AST ALT Alkaline Phosphatase CK-MB (CK-2) CK-MB (CK-2) Rel Index Total Protein Albumin TSH Urine WBC (Auto) Salicylates 01/26/17 01/26/17 01/26/17 05:33 12:17 17:50 WBC RBC Hgb Hct MCV MCH RDW Plt Count Lymph % (Auto) [place] % (Auto) Eos % (Auto) [place] # Seg Neutrophils % Seg Neuts % (Manual) Lymphocytes % (Manual) Seg Neutrophils # Seg Neutrophils # Man Lymphocytes # (Manual) APTT POC ABG pH ABG pH POC ABG pCO2 POC ABG pO2 ABG pO2 ABG HCO3 ABG Base Excess ABG Hemoglobin VBG pH Oxyhemoglobin Sodium Potassium Chloride Carbon Dioxide BUN Creatinine Glucose POC Glucose 199 H 227 H 229 H Lactic Acid Calcium AST ALT Alkaline Phosphatase CK-MB (CK-2) CK-MB (CK-2) Rel Index Total Protein Albumin TSH Urine WBC (Auto) Salicylates 01/26/17 01/27/17 01/27/17 23:57 05:31 11:42 WBC RBC Hgb Hct MCV MCH RDW Plt Count Lymph % (Auto) [place] % (Auto) Eos % (Auto) [place] # Seg Neutrophils % Seg Neuts % (Manual) Lymphocytes % (Manual) Seg Neutrophils # Seg Neutrophils # Man Lymphocytes # (Manual) APTT POC ABG pH ABG pH POC ABG pCO2 POC ABG pO2 ABG pO2 ABG HCO3 ABG Base Excess ABG Hemoglobin VBG pH Oxyhemoglobin Sodium Potassium Chloride Carbon Dioxide BUN Creatinine Glucose POC Glucose 186 H 285 H 260 H Lactic Acid Calcium AST ALT Alkaline Phosphatase CK-MB (CK-2) CK-MB (CK-2) Rel Index Total Protein Albumin TSH Urine WBC (Auto) Salicylates 01/27/17 01/27/17 01/27/17 17:47 23:58 Unknown WBC 12.1 H RBC 3.28 L Hgb 8.5 L Hct 25.5 L MCV 78 L MCH 26 L RDW 16.8 H Plt Count 601 H Lymph % (Auto) [place] % (Auto) Eos % (Auto) [place] # Seg Neutrophils % Seg Neuts % (Manual) Lymphocytes % (Manual) Seg Neutrophils # Seg Neutrophils # Man Lymphocytes # (Manual) APTT POC ABG pH ABG pH POC ABG pCO2 POC ABG pO2 ABG pO2 ABG HCO3 ABG Base Excess ABG Hemoglobin VBG pH Oxyhemoglobin Sodium Potassium Chloride Carbon Dioxide BUN Creatinine Glucose POC Glucose 329 H 225 H Lactic Acid Calcium AST ALT Alkaline Phosphatase CK-MB (CK-2) CK-MB (CK-2) Rel Index Total Protein Albumin TSH Urine WBC (Auto) Salicylates 01/27/17 01/28/17 01/28/17 Unknown 03:44 03:44 WBC RBC 3.14 L Hgb 8.2 L Hct 24.1 L MCV 77 L MCH 26 L RDW 16.9 H Plt Count 567 H Lymph % (Auto) [place] % (Auto) Eos % (Auto) [place] # Seg Neutrophils % Seg Neuts % (Manual) Lymphocytes % (Manual) Seg Neutrophils # Seg Neutrophils # Man Lymphocytes # (Manual) APTT POC ABG pH ABG pH POC ABG pCO2 POC ABG pO2 ABG pO2 ABG HCO3 ABG Base Excess ABG Hemoglobin VBG pH Oxyhemoglobin Sodium 128 L Potassium 5.4 H Chloride 87.5 L Carbon Dioxide BUN 44 H 42 H Creatinine Glucose 250 H 128 H POC Glucose Lactic Acid Calcium AST ALT Alkaline Phosphatase CK-MB (CK-2) CK-MB (CK-2) Rel Index Total Protein Albumin TSH Urine WBC (Auto) Salicylates 01/28/17 01/28/17 01/28/17 11:43 16:47 17:52 WBC RBC Hgb Hct MCV MCH RDW Plt Count Lymph % (Auto) [place] % (Auto) Eos % (Auto) [place] # Seg Neutrophils % Seg Neuts % (Manual) Lymphocytes % (Manual) Seg Neutrophils # Seg Neutrophils # Man Lymphocytes # (Manual) APTT POC ABG pH ABG pH POC ABG pCO2 POC ABG pO2 ABG pO2 ABG HCO3 ABG Base Excess ABG Hemoglobin VBG pH Oxyhemoglobin Sodium Potassium Chloride Carbon Dioxide BUN Creatinine Glucose POC Glucose 351 H 249 H Lactic Acid Calcium AST ALT Alkaline Phosphatase CK-MB (CK-2) CK-MB (CK-2) Rel Index Total Protein Albumin TSH Urine WBC (Auto) > 182.0 H Salicylates 01/29/17 01/29/17 01/29/17 05:25 05:25 09:32 WBC 13.6 H RBC 3.25 L Hgb 8.3 L Hct 25.1 L MCV 77 L MCH 26 L RDW 16.8 H Plt Count 514 H Lymph % (Auto) [place] % (Auto) Eos % (Auto) [place] # Seg Neutrophils % Seg Neuts % (Manual) Lymphocytes % (Manual) Seg Neutrophils # Seg Neutrophils # Man Lymphocytes # (Manual) APTT POC ABG pH ABG pH POC ABG pCO2 POC ABG pO2 ABG pO2 ABG HCO3 ABG Base Excess ABG Hemoglobin VBG pH Oxyhemoglobin Sodium Potassium Chloride 97.8 L Carbon Dioxide BUN 34 H Creatinine Glucose 222 H POC Glucose Lactic Acid 2.50 H* Calcium AST ALT Alkaline Phosphatase CK-MB (CK-2) CK-MB (CK-2) Rel Index Total Protein Albumin TSH Urine WBC (Auto) Salicylates 01/29/17 01/29/17 01/29/17 11:56 18:11 23:55 WBC RBC Hgb Hct MCV MCH RDW Plt Count Lymph % (Auto) [place] % (Auto) Eos % (Auto) [place] # Seg Neutrophils % Seg Neuts % (Manual) Lymphocytes % (Manual) Seg Neutrophils # Seg Neutrophils # Man Lymphocytes # (Manual) APTT POC ABG pH ABG pH POC ABG pCO2 POC ABG pO2 ABG pO2 ABG HCO3 ABG Base Excess ABG Hemoglobin VBG pH Oxyhemoglobin Sodium Potassium Chloride Carbon Dioxide BUN Creatinine Glucose POC Glucose 261 H 215 H 176 H Lactic Acid Calcium AST ALT Alkaline Phosphatase CK-MB (CK-2) CK-MB (CK-2) Rel Index Total Protein Albumin TSH Urine WBC (Auto) Salicylates 01/30/17 01/30/17 01/30/17 05:31 05:31 05:34 WBC 15.2 H RBC 3.09 L Hgb 7.9 L Hct 23.9 L MCV 77 L MCH 26 L RDW 16.9 H Plt Count 569 H Lymph % (Auto) [place] % (Auto) Eos % (Auto) [place] # Seg Neutrophils % Seg Neuts % (Manual) Lymphocytes % (Manual) Seg Neutrophils # Seg Neutrophils # Man Lymphocytes # (Manual) APTT POC ABG pH ABG pH POC ABG pCO2 POC ABG pO2 ABG pO2 ABG HCO3 ABG Base Excess ABG Hemoglobin VBG pH Oxyhemoglobin Sodium Potassium Chloride Carbon Dioxide BUN 24 H Creatinine Glucose 235 H POC Glucose 243 H Lactic Acid Calcium AST ALT Alkaline Phosphatase CK-MB (CK-2) CK-MB (CK-2) Rel Index Total Protein Albumin TSH Urine WBC (Auto) Salicylates 01/30/17 01/30/17 01/30/17 11:38 17:58 23:29 WBC RBC Hgb Hct MCV MCH RDW Plt Count Lymph % (Auto) [place] % (Auto) Eos % (Auto) [place] # Seg Neutrophils % Seg Neuts % (Manual) Lymphocytes % (Manual) Seg Neutrophils # Seg Neutrophils # Man Lymphocytes # (Manual) APTT POC ABG pH ABG pH POC ABG pCO2 POC ABG pO2 ABG pO2 ABG HCO3 ABG Base Excess ABG Hemoglobin VBG pH Oxyhemoglobin Sodium Potassium Chloride Carbon Dioxide BUN Creatinine Glucose POC Glucose 298 H 208 H 245 H Lactic Acid Calcium AST ALT Alkaline Phosphatase CK-MB (CK-2) CK-MB (CK-2) Rel Index Total Protein Albumin TSH Urine WBC (Auto) Salicylates 01/31/17 01/31/17 01/31/17 04:39 04:39 05:57 WBC 11.4 H RBC 3.22 L Hgb 8.2 L Hct 24.9 L MCV 78 L MCH 25 L RDW 17.2 H Plt Count 576 H Lymph % (Auto) [place] % (Auto) Eos % (Auto) [place] # Seg Neutrophils % Seg Neuts % (Manual) Lymphocytes % (Manual) Seg Neutrophils # Seg Neutrophils # Man Lymphocytes # (Manual) APTT POC ABG pH ABG pH POC ABG pCO2 POC ABG pO2 ABG pO2 ABG HCO3 ABG Base Excess ABG Hemoglobin VBG pH Oxyhemoglobin Sodium Potassium Chloride Carbon Dioxide BUN Creatinine 0.7 L Glucose 223 H POC Glucose 264 H Lactic Acid Calcium AST ALT Alkaline Phosphatase CK-MB (CK-2) CK-MB (CK-2) Rel Index Total Protein Albumin TSH Urine WBC (Auto) Salicylates 01/31/17 01/31/17 01/31/17 12:23 17:41 18:55 WBC RBC Hgb Hct MCV MCH RDW Plt Count Lymph % (Auto) [place] % (Auto) Eos % (Auto) [place] # Seg Neutrophils % Seg Neuts % (Manual) Lymphocytes % (Manual) Seg Neutrophils # Seg Neutrophils # Man Lymphocytes # (Manual) APTT POC ABG pH ABG pH POC ABG pCO2 32.8 L POC ABG pO2 ABG pO2 ABG HCO3 ABG Base Excess ABG Hemoglobin VBG pH Oxyhemoglobin Sodium Potassium Chloride Carbon Dioxide BUN Creatinine Glucose POC Glucose 252 H 208 H Lactic Acid Calcium AST ALT Alkaline Phosphatase CK-MB (CK-2) CK-MB (CK-2) Rel Index Total Protein Albumin TSH Urine WBC (Auto) Salicylates 01/31/17 02/01/17 02/01/17 22:59 03:38 03:38 WBC RBC 2.81 L Hgb 7.4 L Hct 22.1 L MCV 79 L MCH 27 L RDW 17.0 H Plt Count 540 H Lymph % (Auto) [place] % (Auto) Eos % (Auto) [place] # Seg Neutrophils % Seg Neuts % (Manual) Lymphocytes % (Manual) Seg Neutrophils # Seg Neutrophils # Man Lymphocytes # (Manual) APTT POC ABG pH ABG pH POC ABG pCO2 POC ABG pO2 ABG pO2 ABG HCO3 ABG Base Excess ABG Hemoglobin VBG pH Oxyhemoglobin Sodium Potassium Chloride Carbon Dioxide 21 L BUN Creatinine 0.7 L Glucose POC Glucose 40 L Lactic Acid Calcium AST ALT Alkaline Phosphatase CK-MB (CK-2) CK-MB (CK-2) Rel Index Total Protein Albumin TSH Urine WBC (Auto) Salicylates 02/01/17 02/01/17 02/01/17 05:17 12:19 16:44 WBC RBC Hgb Hct MCV MCH RDW Plt Count Lymph % (Auto) [place] % (Auto) Eos % (Auto) [place] # Seg Neutrophils % Seg Neuts % (Manual) Lymphocytes % (Manual) Seg Neutrophils # Seg Neutrophils # Man Lymphocytes # (Manual) APTT POC ABG pH ABG pH POC ABG pCO2 POC ABG pO2 ABG pO2 ABG HCO3 ABG Base Excess ABG Hemoglobin VBG pH Oxyhemoglobin Sodium Potassium Chloride Carbon Dioxide BUN Creatinine Glucose POC Glucose 140 H 213 H 172 H Lactic Acid Calcium AST ALT Alkaline Phosphatase CK-MB (CK-2) CK-MB (CK-2) Rel Index Total Protein Albumin TSH Urine WBC (Auto) Salicylates 02/01/17 02/02/17 02/02/17 23:59 05:14 11:24 WBC RBC Hgb Hct MCV MCH RDW Plt Count Lymph % (Auto) [place] % (Auto) Eos % (Auto) [place] # Seg Neutrophils % Seg Neuts % (Manual) Lymphocytes % (Manual) Seg Neutrophils # Seg Neutrophils # Man Lymphocytes # (Manual) APTT POC ABG pH ABG pH POC ABG pCO2 POC ABG pO2 ABG pO2 ABG HCO3 ABG Base Excess ABG Hemoglobin VBG pH Oxyhemoglobin Sodium Potassium Chloride Carbon Dioxide BUN Creatinine Glucose POC Glucose 181 H 194 H 209 H Lactic Acid Calcium AST ALT Alkaline Phosphatase CK-MB (CK-2) CK-MB (CK-2) Rel Index Total Protein Albumin TSH Urine WBC (Auto) Salicylates 02/02/17 02/02/17 02/02/17 11:46 11:46 17:47 WBC RBC 2.94 L Hgb 7.5 L Hct 23.0 L MCV 78 L MCH 25 L RDW 16.9 H Plt Count 520 H Lymph % (Auto) [place] % (Auto) Eos % (Auto) [place] # Seg Neutrophils % Seg Neuts % (Manual) Lymphocytes % (Manual) Seg Neutrophils # Seg Neutrophils # Man Lymphocytes # (Manual) APTT POC ABG pH ABG pH POC ABG pCO2 POC ABG pO2 ABG pO2 ABG HCO3 ABG Base Excess ABG Hemoglobin VBG pH Oxyhemoglobin Sodium Potassium Chloride Carbon Dioxide BUN Creatinine 0.6 L Glucose 189 H POC Glucose 147 H Lactic Acid Calcium 8.1 L AST ALT Alkaline Phosphatase CK-MB (CK-2) CK-MB (CK-2) Rel Index Total Protein Albumin TSH Urine WBC (Auto) Salicylates 02/02/17 02/03/17 02/03/17 23:32 05:53 11:19 WBC RBC Hgb Hct MCV MCH RDW Plt Count Lymph % (Auto) [place] % (Auto) Eos % (Auto) [place] # Seg Neutrophils % Seg Neuts % (Manual) Lymphocytes % (Manual) Seg Neutrophils # Seg Neutrophils # Man Lymphocytes # (Manual) APTT POC ABG pH ABG pH POC ABG pCO2 POC ABG pO2 ABG pO2 ABG HCO3 ABG Base Excess ABG Hemoglobin VBG pH Oxyhemoglobin Sodium Potassium Chloride Carbon Dioxide BUN Creatinine Glucose POC Glucose 176 H 224 H 228 H Lactic Acid Calcium AST ALT Alkaline Phosphatase CK-MB (CK-2) CK-MB (CK-2) Rel Index Total Protein Albumin TSH Urine WBC (Auto) Salicylates 02/03/17 02/03/17 02/04/17 16:59 23:38 05:45 WBC RBC Hgb Hct MCV MCH RDW Plt Count Lymph % (Auto) [place] % (Auto) Eos % (Auto) [place] # Seg Neutrophils % Seg Neuts % (Manual) Lymphocytes % (Manual) Seg Neutrophils # Seg Neutrophils # Man Lymphocytes # (Manual) APTT POC ABG pH ABG pH POC ABG pCO2 POC ABG pO2 ABG pO2 ABG HCO3 ABG Base Excess ABG Hemoglobin VBG pH Oxyhemoglobin Sodium Potassium Chloride Carbon Dioxide BUN Creatinine Glucose POC Glucose 189 H 191 H 251 H Lactic Acid Calcium AST ALT Alkaline Phosphatase CK-MB (CK-2) CK-MB (CK-2) Rel Index Total Protein Albumin TSH Urine WBC (Auto) Salicylates 02/04/17 02/04/17 02/05/17 11:20 17:20 00:17 WBC RBC Hgb Hct MCV MCH RDW Plt Count Lymph % (Auto) [place] % (Auto) Eos % (Auto) [place] # Seg Neutrophils % Seg Neuts % (Manual) Lymphocytes % (Manual) Seg Neutrophils # Seg Neutrophils # Man Lymphocytes # (Manual) APTT POC ABG pH ABG pH POC ABG pCO2 POC ABG pO2 ABG pO2 ABG HCO3 ABG Base Excess ABG Hemoglobin VBG pH Oxyhemoglobin Sodium Potassium Chloride Carbon Dioxide BUN Creatinine Glucose POC Glucose 243 H 163 H 200 H Lactic Acid Calcium AST ALT Alkaline Phosphatase CK-MB (CK-2) CK-MB (CK-2) Rel Index Total Protein Albumin TSH Urine WBC (Auto) Salicylates 02/05/17 02/05/17 02/05/17 05:38 12:38 16:29 WBC RBC Hgb Hct MCV MCH RDW Plt Count Lymph % (Auto) [place] % (Auto) Eos % (Auto) [place] # Seg Neutrophils % Seg Neuts % (Manual) Lymphocytes % (Manual) Seg Neutrophils # Seg Neutrophils # Man Lymphocytes # (Manual) APTT POC ABG pH ABG pH POC ABG pCO2 POC ABG pO2 ABG pO2 ABG HCO3 ABG Base Excess ABG Hemoglobin VBG pH Oxyhemoglobin Sodium Potassium Chloride Carbon Dioxide BUN Creatinine Glucose POC Glucose 248 H 241 H 257 H Lactic Acid Calcium AST ALT Alkaline Phosphatase CK-MB (CK-2) CK-MB (CK-2) Rel Index Total Protein Albumin TSH Urine WBC (Auto) Salicylates 02/05/17 02/06/17 02/06/17 23:56 05:30 11:50 WBC RBC Hgb Hct MCV MCH RDW Plt Count Lymph % (Auto) [place] % (Auto) Eos % (Auto) [place] # Seg Neutrophils % Seg Neuts % (Manual) Lymphocytes % (Manual) Seg Neutrophils # Seg Neutrophils # Man Lymphocytes # (Manual) APTT POC ABG pH ABG pH POC ABG pCO2 POC ABG pO2 ABG pO2 ABG HCO3 ABG Base Excess ABG Hemoglobin VBG pH Oxyhemoglobin Sodium Potassium Chloride Carbon Dioxide BUN Creatinine Glucose POC Glucose 258 H 120 H 254 H Lactic Acid Calcium AST ALT Alkaline Phosphatase CK-MB (CK-2) CK-MB (CK-2) Rel Index Total Protein Albumin TSH Urine WBC (Auto) Salicylates 02/06/17 02/06/17 02/07/17 17:11 23:50 05:22 WBC RBC Hgb Hct MCV MCH RDW Plt Count Lymph % (Auto) [place] % (Auto) Eos % (Auto) [place] # Seg Neutrophils % Seg Neuts % (Manual) Lymphocytes % (Manual) Seg Neutrophils # Seg Neutrophils # Man Lymphocytes # (Manual) APTT POC ABG pH ABG pH POC ABG pCO2 POC ABG pO2 ABG pO2 ABG HCO3 ABG Base Excess ABG Hemoglobin VBG pH Oxyhemoglobin Sodium Potassium Chloride Carbon Dioxide BUN Creatinine Glucose POC Glucose 149 H 240 H 258 H Lactic Acid Calcium AST ALT Alkaline Phosphatase CK-MB (CK-2) CK-MB (CK-2) Rel Index Total Protein Albumin TSH Urine WBC (Auto) Salicylates 02/07/17 02/07/17 02/07/17 11:15 18:33 23:59 WBC RBC Hgb Hct MCV MCH RDW Plt Count Lymph % (Auto) [place] % (Auto) Eos % (Auto) [place] # Seg Neutrophils % Seg Neuts % (Manual) Lymphocytes % (Manual) Seg Neutrophils # Seg Neutrophils # Man Lymphocytes # (Manual) APTT POC ABG pH ABG pH POC ABG pCO2 POC ABG pO2 ABG pO2 ABG HCO3 ABG Base Excess ABG Hemoglobin VBG pH Oxyhemoglobin Sodium Potassium Chloride Carbon Dioxide BUN Creatinine Glucose POC Glucose 239 H 176 H 186 H Lactic Acid Calcium AST ALT Alkaline Phosphatase CK-MB (CK-2) CK-MB (CK-2) Rel Index Total Protein Albumin TSH Urine WBC (Auto) Salicylates 02/08/17 02/08/17 02/08/17 06:15 11:55 16:55 WBC RBC Hgb Hct MCV MCH RDW Plt Count Lymph % (Auto) [place] % (Auto) Eos % (Auto) [place] # Seg Neutrophils % Seg Neuts % (Manual) Lymphocytes % (Manual) Seg Neutrophils # Seg Neutrophils # Man Lymphocytes # (Manual) APTT POC ABG pH ABG pH POC ABG pCO2 POC ABG pO2 ABG pO2 ABG HCO3 ABG Base Excess ABG Hemoglobin VBG pH Oxyhemoglobin Sodium Potassium Chloride Carbon Dioxide BUN Creatinine Glucose POC Glucose 195 H 129 H 246 H Lactic Acid Calcium AST ALT Alkaline Phosphatase CK-MB (CK-2) CK-MB (CK-2) Rel Index Total Protein Albumin TSH Urine WBC (Auto) Salicylates 02/08/17 02/09/17 02/09/17 23:51 05:51 07:24 WBC 14.7 H RBC 3.39 L Hgb 8.9 L Hct 26.4 L MCV 78 L MCH 26 L RDW 18.4 H Plt Count 670 H Lymph % (Auto) 11.8 L [place] % (Auto) Eos % (Auto) [place] # Seg Neutrophils % 81.2 H Seg Neuts % (Manual) Lymphocytes % (Manual) Seg Neutrophils # 11.9 H Seg Neutrophils # Man Lymphocytes # (Manual) APTT POC ABG pH ABG pH POC ABG pCO2 POC ABG pO2 ABG pO2 ABG HCO3 ABG Base Excess ABG Hemoglobin VBG pH Oxyhemoglobin Sodium Potassium Chloride Carbon Dioxide BUN Creatinine Glucose POC Glucose 262 H 295 H Lactic Acid Calcium AST ALT Alkaline Phosphatase CK-MB (CK-2) CK-MB (CK-2) Rel Index Total Protein Albumin TSH Urine WBC (Auto) Salicylates 02/09/17 02/09/17 02/09/17 07:24 12:08 18:39 WBC RBC Hgb Hct MCV MCH RDW Plt Count Lymph % (Auto) [place] % (Auto) Eos % (Auto) [place] # Seg Neutrophils % Seg Neuts % (Manual) Lymphocytes % (Manual) Seg Neutrophils # Seg Neutrophils # Man Lymphocytes # (Manual) APTT POC ABG pH ABG pH POC ABG pCO2 POC ABG pO2 ABG pO2 ABG HCO3 ABG Base Excess ABG Hemoglobin VBG pH Oxyhemoglobin Sodium Potassium Chloride 95.5 L Carbon Dioxide BUN 52 H Creatinine Glucose 277 H POC Glucose 236 H 151 H Lactic Acid Calcium AST ALT Alkaline Phosphatase CK-MB (CK-2) CK-MB (CK-2) Rel Index Total Protein Albumin TSH Urine WBC (Auto) Salicylates 02/10/17 02/10/17 02/10/17 00:01 05:44 11:21 WBC RBC Hgb Hct MCV MCH RDW Plt Count Lymph % (Auto) [place] % (Auto) Eos % (Auto) [place] # Seg Neutrophils % Seg Neuts % (Manual) Lymphocytes % (Manual) Seg Neutrophils # Seg Neutrophils # Man Lymphocytes # (Manual) APTT POC ABG pH ABG pH POC ABG pCO2 POC ABG pO2 ABG pO2 ABG HCO3 ABG Base Excess ABG Hemoglobin VBG pH Oxyhemoglobin Sodium Potassium Chloride Carbon Dioxide BUN Creatinine Glucose POC Glucose 210 H 201 H 233 H Lactic Acid Calcium AST ALT Alkaline Phosphatase CK-MB (CK-2) CK-MB (CK-2) Rel Index Total Protein Albumin TSH Urine WBC (Auto) Salicylates 02/10/17 02/10/17 02/11/17 17:29 23:56 05:24 WBC RBC Hgb Hct MCV MCH RDW Plt Count Lymph % (Auto) [place] % (Auto) Eos % (Auto) [place] # Seg Neutrophils % Seg Neuts % (Manual) Lymphocytes % (Manual) Seg Neutrophils # Seg Neutrophils # Man Lymphocytes # (Manual) APTT POC ABG pH ABG pH POC ABG pCO2 POC ABG pO2 ABG pO2 ABG HCO3 ABG Base Excess ABG Hemoglobin VBG pH Oxyhemoglobin Sodium Potassium Chloride Carbon Dioxide BUN Creatinine Glucose POC Glucose 167 H 191 H 135 H Lactic Acid Calcium AST ALT Alkaline Phosphatase CK-MB (CK-2) CK-MB (CK-2) Rel Index Total Protein Albumin TSH Urine WBC (Auto) Salicylates 02/11/17 02/11/17 02/11/17 12:25 17:03 23:59 WBC RBC Hgb Hct MCV MCH RDW Plt Count Lymph % (Auto) [place] % (Auto) Eos % (Auto) [place] # Seg Neutrophils % Seg Neuts % (Manual) Lymphocytes % (Manual) Seg Neutrophils # Seg Neutrophils # Man Lymphocytes # (Manual) APTT POC ABG pH ABG pH POC ABG pCO2 POC ABG pO2 ABG pO2 ABG HCO3 ABG Base Excess ABG Hemoglobin VBG pH Oxyhemoglobin Sodium Potassium Chloride Carbon Dioxide BUN Creatinine Glucose POC Glucose 275 H 172 H 215 H Lactic Acid Calcium AST ALT Alkaline Phosphatase CK-MB (CK-2) CK-MB (CK-2) Rel Index Total Protein Albumin TSH Urine WBC (Auto) Salicylates 02/12/17 02/12/17 02/12/17 05:39 11:33 17:55 WBC RBC Hgb Hct MCV MCH RDW Plt Count Lymph % (Auto) [place] % (Auto) Eos % (Auto) [place] # Seg Neutrophils % Seg Neuts % (Manual) Lymphocytes % (Manual) Seg Neutrophils # Seg Neutrophils # Man Lymphocytes # (Manual) APTT POC ABG pH ABG pH POC ABG pCO2 POC ABG pO2 ABG pO2 ABG HCO3 ABG Base Excess ABG Hemoglobin VBG pH Oxyhemoglobin Sodium Potassium Chloride Carbon Dioxide BUN Creatinine Glucose POC Glucose 261 H 217 H 172 H Lactic Acid Calcium AST ALT Alkaline Phosphatase CK-MB (CK-2) CK-MB (CK-2) Rel Index Total Protein Albumin TSH Urine WBC (Auto) Salicylates 02/13/17 02/13/17 02/13/17 00:25 06:46 11:26 WBC RBC Hgb Hct MCV MCH RDW Plt Count Lymph % (Auto) [place] % (Auto) Eos % (Auto) [place] # Seg Neutrophils % Seg Neuts % (Manual) Lymphocytes % (Manual) Seg Neutrophils # Seg Neutrophils # Man Lymphocytes # (Manual) APTT POC ABG pH ABG pH POC ABG pCO2 POC ABG pO2 ABG pO2 ABG HCO3 ABG Base Excess ABG Hemoglobin VBG pH Oxyhemoglobin Sodium Potassium Chloride Carbon Dioxide BUN Creatinine Glucose POC Glucose 207 H 219 H 231 H Lactic Acid Calcium AST ALT Alkaline Phosphatase CK-MB (CK-2) CK-MB (CK-2) Rel Index Total Protein Albumin TSH Urine WBC (Auto) Salicylates 02/13/17 02/13/17 02/14/17 17:12 23:44 05:44 WBC RBC Hgb Hct MCV MCH RDW Plt Count Lymph % (Auto) [place] % (Auto) Eos % (Auto) [place] # Seg Neutrophils % Seg Neuts % (Manual) Lymphocytes % (Manual) Seg Neutrophils # Seg Neutrophils # Man Lymphocytes # (Manual) APTT POC ABG pH ABG pH POC ABG pCO2 POC ABG pO2 ABG pO2 ABG HCO3 ABG Base Excess ABG Hemoglobin VBG pH Oxyhemoglobin Sodium Potassium Chloride Carbon Dioxide BUN Creatinine Glucose POC Glucose 190 H 256 H 184 H Lactic Acid Calcium AST ALT Alkaline Phosphatase CK-MB (CK-2) CK-MB (CK-2) Rel Index Total Protein Albumin TSH Urine WBC (Auto) Salicylates 02/14/17 02/14/17 02/14/17 12:21 17:57 23:18 WBC RBC Hgb Hct MCV MCH RDW Plt Count Lymph % (Auto) [place] % (Auto) Eos % (Auto) [place] # Seg Neutrophils % Seg Neuts % (Manual) Lymphocytes % (Manual) Seg Neutrophils # Seg Neutrophils # Man Lymphocytes # (Manual) APTT POC ABG pH ABG pH POC ABG pCO2 POC ABG pO2 ABG pO2 ABG HCO3 ABG Base Excess ABG Hemoglobin VBG pH Oxyhemoglobin Sodium Potassium Chloride Carbon Dioxide BUN Creatinine Glucose POC Glucose 233 H 155 H 165 H Lactic Acid Calcium AST ALT Alkaline Phosphatase CK-MB (CK-2) CK-MB (CK-2) Rel Index Total Protein Albumin TSH Urine WBC (Auto) Salicylates 02/15/17 02/15/17 02/15/17 05:33 11:45 17:20 WBC RBC Hgb Hct MCV MCH RDW Plt Count Lymph % (Auto) [place] % (Auto) Eos % (Auto) [place] # Seg Neutrophils % Seg Neuts % (Manual) Lymphocytes % (Manual) Seg Neutrophils # Seg Neutrophils # Man Lymphocytes # (Manual) APTT POC ABG pH ABG pH POC ABG pCO2 POC ABG pO2 ABG pO2 ABG HCO3 ABG Base Excess ABG Hemoglobin VBG pH Oxyhemoglobin Sodium Potassium Chloride Carbon Dioxide BUN Creatinine Glucose POC Glucose 239 H 130 H 189 H Lactic Acid Calcium AST ALT Alkaline Phosphatase CK-MB (CK-2) CK-MB (CK-2) Rel Index Total Protein Albumin TSH Urine WBC (Auto) Salicylates 02/16/17 02/16/17 02/16/17 00:14 05:09 12:31 WBC RBC Hgb Hct MCV MCH RDW Plt Count Lymph % (Auto) [place] % (Auto) Eos % (Auto) [place] # Seg Neutrophils % Seg Neuts % (Manual) Lymphocytes % (Manual) Seg Neutrophils # Seg Neutrophils # Man Lymphocytes # (Manual) APTT POC ABG pH ABG pH POC ABG pCO2 POC ABG pO2 ABG pO2 ABG HCO3 ABG Base Excess ABG Hemoglobin VBG pH Oxyhemoglobin Sodium Potassium Chloride Carbon Dioxide BUN Creatinine Glucose POC Glucose 197 H 226 H 178 H Lactic Acid Calcium AST ALT Alkaline Phosphatase CK-MB (CK-2) CK-MB (CK-2) Rel Index Total Protein Albumin TSH Urine WBC (Auto) Salicylates 02/16/17 02/16/17 02/17/17 16:35 23:49 05:37 WBC RBC Hgb Hct MCV MCH RDW Plt Count Lymph % (Auto) [place] % (Auto) Eos % (Auto) [place] # Seg Neutrophils % Seg Neuts % (Manual) Lymphocytes % (Manual) Seg Neutrophils # Seg Neutrophils # Man Lymphocytes # (Manual) APTT POC ABG pH ABG pH POC ABG pCO2 POC ABG pO2 ABG pO2 ABG HCO3 ABG Base Excess ABG Hemoglobin VBG pH Oxyhemoglobin Sodium Potassium Chloride Carbon Dioxide BUN Creatinine Glucose POC Glucose 174 H 62 L 153 H Lactic Acid Calcium AST ALT Alkaline Phosphatase CK-MB (CK-2) CK-MB (CK-2) Rel Index Total Protein Albumin TSH Urine WBC (Auto) Salicylates 02/17/17 02/17/1717 11:39 17:02 22:24 WBC RBC Hgb Hct MCV MCH RDW Plt Count Lymph % (Auto) [place] % (Auto) Eos % (Auto) [place] # Seg Neutrophils % Seg Neuts % (Manual) Lymphocytes % (Manual) Seg Neutrophils # Seg Neutrophils # Man Lymphocytes # (Manual) APTT POC ABG pH ABG pH POC ABG pCO2 POC ABG pO2 ABG pO2 ABG HCO3 ABG Base Excess ABG Hemoglobin VBG pH Oxyhemoglobin Sodium Potassium Chloride Carbon Dioxide BUN Creatinine Glucose POC Glucose 231 H 112 H 116 H Lactic Acid Calcium AST ALT Alkaline Phosphatase CK-MB (CK-2) CK-MB (CK-2) Rel Index Total Protein Albumin TSH Urine WBC (Auto) Salicylates 02/18/17 02/19/17 02/19/17 15:34 05:09 07:57 WBC RBC Hgb Hct MCV MCH RDW Plt Count Lymph % (Auto) [place] % (Auto) Eos % (Auto) [place] # Seg Neutrophils % Seg Neuts % (Manual) Lymphocytes % (Manual) Seg Neutrophils # Seg Neutrophils # Man Lymphocytes # (Manual) APTT POC ABG pH ABG pH POC ABG pCO2 POC ABG pO2 ABG pO2 ABG HCO3 ABG Base Excess ABG Hemoglobin VBG pH Oxyhemoglobin Sodium Potassium Chloride Carbon Dioxide BUN Creatinine Glucose POC Glucose 215 H 218 H 283 H Lactic Acid Calcium AST ALT Alkaline Phosphatase CK-MB (CK-2) CK-MB (CK-2) Rel Index Total Protein Albumin TSH Urine WBC (Auto) Salicylates 02/19/17 02/19/17 02/20/17 14:49 22:10 05:10 WBC RBC Hgb Hct MCV MCH RDW Plt Count Lymph % (Auto) [place] % (Auto) Eos % (Auto) [place] # Seg Neutrophils % Seg Neuts % (Manual) Lymphocytes % (Manual) Seg Neutrophils # Seg Neutrophils # Man Lymphocytes # (Manual) APTT POC ABG pH ABG pH POC ABG pCO2 POC ABG pO2 ABG pO2 ABG HCO3 ABG Base Excess ABG Hemoglobin VBG pH Oxyhemoglobin Sodium Potassium Chloride Carbon Dioxide BUN Creatinine Glucose POC Glucose 290 H 169 H 209 H Lactic Acid Calcium AST ALT Alkaline Phosphatase CK-MB (CK-2) CK-MB (CK-2) Rel Index Total Protein Albumin TSH Urine WBC (Auto) Salicylates 02/20/17 02/20/17 02/21/17 15:05 21:52 02:00 WBC RBC Hgb Hct MCV MCH RDW Plt Count Lymph % (Auto) [place] % (Auto) Eos % (Auto) [place] # Seg Neutrophils % Seg Neuts % (Manual) Lymphocytes % (Manual) Seg Neutrophils # Seg Neutrophils # Man Lymphocytes # (Manual) APTT POC ABG pH ABG pH POC ABG pCO2 POC ABG pO2 ABG pO2 ABG HCO3 ABG Base Excess ABG Hemoglobin VBG pH Oxyhemoglobin Sodium Potassium Chloride Carbon Dioxide BUN Creatinine Glucose POC Glucose 172 H 209 H 216 H Lactic Acid Calcium AST ALT Alkaline Phosphatase CK-MB (CK-2) CK-MB (CK-2) Rel Index Total Protein Albumin TSH Urine WBC (Auto) Salicylates 02/21/17 02/21/17 02/21/17 04:54 14:43 17:47 WBC RBC Hgb Hct MCV MCH RDW Plt Count Lymph % (Auto) [place] % (Auto) Eos % (Auto) [place] # Seg Neutrophils % Seg Neuts % (Manual) Lymphocytes % (Manual) Seg Neutrophils # Seg Neutrophils # Man Lymphocytes # (Manual) APTT POC ABG pH ABG pH POC ABG pCO2 POC ABG pO2 ABG pO2 ABG HCO3 ABG Base Excess ABG Hemoglobin VBG pH Oxyhemoglobin Sodium Potassium Chloride Carbon Dioxide BUN Creatinine Glucose POC Glucose 227 H 290 H 220 H Lactic Acid Calcium AST ALT Alkaline Phosphatase CK-MB (CK-2) CK-MB (CK-2) Rel Index Total Protein Albumin TSH Urine WBC (Auto) Salicylates 02/21/17 02/22/17 02/22/17 22:02 04:52 15:25 WBC RBC Hgb Hct MCV MCH RDW Plt Count Lymph % (Auto) [place] % (Auto) Eos % (Auto) [place] # Seg Neutrophils % Seg Neuts % (Manual) Lymphocytes % (Manual) Seg Neutrophils # Seg Neutrophils # Man Lymphocytes # (Manual) APTT POC ABG pH ABG pH POC ABG pCO2 POC ABG pO2 ABG pO2 ABG HCO3 ABG Base Excess ABG Hemoglobin VBG pH Oxyhemoglobin Sodium Potassium Chloride Carbon Dioxide BUN Creatinine Glucose POC Glucose 246 H 212 H 236 H Lactic Acid Calcium AST ALT Alkaline Phosphatase CK-MB (CK-2) CK-MB (CK-2) Rel Index Total Protein Albumin TSH Urine WBC (Auto) Salicylates 02/22/17 02/23/17 02/23/17 21:33 06:04 10:00 WBC RBC Hgb Hct MCV MCH RDW Plt Count Lymph % (Auto) [place] % (Auto) Eos % (Auto) [place] # Seg Neutrophils % Seg Neuts % (Manual) Lymphocytes % (Manual) Seg Neutrophils # Seg Neutrophils # Man Lymphocytes # (Manual) APTT POC ABG pH ABG pH POC ABG pCO2 POC ABG pO2 ABG pO2 ABG HCO3 ABG Base Excess ABG Hemoglobin VBG pH Oxyhemoglobin Sodium Potassium Chloride Carbon Dioxide BUN Creatinine Glucose POC Glucose 255 H 208 H 174 H Lactic Acid Calcium AST ALT Alkaline Phosphatase CK-MB (CK-2) CK-MB (CK-2) Rel Index Total Protein Albumin TSH Urine WBC (Auto) Salicylates 02/23/17 02/23/17 02/23/17 12:52 17:15 21:51 WBC RBC Hgb Hct MCV MCH RDW Plt Count Lymph % (Auto) [place] % (Auto) Eos % (Auto) [place] # Seg Neutrophils % Seg Neuts % (Manual) Lymphocytes % (Manual) Seg Neutrophils # Seg Neutrophils # Man Lymphocytes # (Manual) APTT POC ABG pH ABG pH POC ABG pCO2 POC ABG pO2 ABG pO2 ABG HCO3 ABG Base Excess ABG Hemoglobin VBG pH Oxyhemoglobin Sodium Potassium Chloride Carbon Dioxide BUN Creatinine Glucose POC Glucose 203 H 269 H 205 H Lactic Acid Calcium AST ALT Alkaline Phosphatase CK-MB (CK-2) CK-MB (CK-2) Rel Index Total Protein Albumin TSH Urine WBC (Auto) Salicylates 02/24/17 02/24/17 02/24/17 10:23 17:45 21:24 WBC RBC Hgb Hct MCV MCH RDW Plt Count Lymph % (Auto) [place] % (Auto) Eos % (Auto) [place] # Seg Neutrophils % Seg Neuts % (Manual) Lymphocytes % (Manual) Seg Neutrophils # Seg Neutrophils # Man Lymphocytes # (Manual) APTT POC ABG pH ABG pH POC ABG pCO2 POC ABG pO2 ABG pO2 ABG HCO3 ABG Base Excess ABG Hemoglobin VBG pH Oxyhemoglobin Sodium Potassium Chloride Carbon Dioxide BUN Creatinine Glucose POC Glucose 280 H 239 H 254 H Lactic Acid Calcium AST ALT Alkaline Phosphatase CK-MB (CK-2) CK-MB (CK-2) Rel Index Total Protein Albumin TSH Urine WBC (Auto) Salicylates 02/25/17 02/25/17 02/25/17 02:12 05:17 14:32 WBC RBC Hgb Hct MCV MCH RDW Plt Count Lymph % (Auto) [place] % (Auto) Eos % (Auto) [place] # Seg Neutrophils % Seg Neuts % (Manual) Lymphocytes % (Manual) Seg Neutrophils # Seg Neutrophils # Man Lymphocytes # (Manual) APTT POC ABG pH ABG pH POC ABG pCO2 POC ABG pO2 ABG pO2 ABG HCO3 ABG Base Excess ABG Hemoglobin VBG pH Oxyhemoglobin Sodium Potassium Chloride Carbon Dioxide BUN Creatinine Glucose POC Glucose 296 H 332 H 353 H Lactic Acid Calcium AST ALT Alkaline Phosphatase CK-MB (CK-2) CK-MB (CK-2) Rel Index Total Protein Albumin TSH Urine WBC (Auto) Salicylates 02/25/17 02/26/17 02/26/17 22:14 00:37 05:52 WBC RBC Hgb Hct MCV MCH RDW Plt Count Lymph % (Auto) [place] % (Auto) Eos % (Auto) [place] # Seg Neutrophils % Seg Neuts % (Manual) Lymphocytes % (Manual) Seg Neutrophils # Seg Neutrophils # Man Lymphocytes # (Manual) APTT POC ABG pH ABG pH POC ABG pCO2 POC ABG pO2 ABG pO2 ABG HCO3 ABG Base Excess ABG Hemoglobin VBG pH Oxyhemoglobin Sodium Potassium Chloride Carbon Dioxide BUN Creatinine Glucose POC Glucose 201 H 233 H 269 H Lactic Acid Calcium AST ALT Alkaline Phosphatase CK-MB (CK-2) CK-MB (CK-2) Rel Index Total Protein Albumin TSH Urine WBC (Auto) Salicylates 02/26/17 02/26/17 02/26/17 11:48 13:49 21:26 WBC RBC Hgb Hct MCV MCH RDW Plt Count Lymph % (Auto) [place] % (Auto) Eos % (Auto) [place] # Seg Neutrophils % Seg Neuts % (Manual) Lymphocytes % (Manual) Seg Neutrophils # Seg Neutrophils # Man Lymphocytes # (Manual) APTT POC ABG pH ABG pH POC ABG pCO2 POC ABG pO2 ABG pO2 ABG HCO3 ABG Base Excess ABG Hemoglobin VBG pH Oxyhemoglobin Sodium Potassium Chloride Carbon Dioxide BUN Creatinine Glucose POC Glucose 333 H 322 H 244 H Lactic Acid Calcium AST ALT Alkaline Phosphatase CK-MB (CK-2) CK-MB (CK-2) Rel Index Total Protein Albumin TSH Urine WBC (Auto) Salicylates 02/27/17 02/27/17 02/27/17 05:27 13:51 21:48 WBC RBC Hgb Hct MCV MCH RDW Plt Count Lymph % (Auto) [place] % (Auto) Eos % (Auto) [place] # Seg Neutrophils % Seg Neuts % (Manual) Lymphocytes % (Manual) Seg Neutrophils # Seg Neutrophils # Man Lymphocytes # (Manual) APTT POC ABG pH ABG pH POC ABG pCO2 POC ABG pO2 ABG pO2 ABG HCO3 ABG Base Excess ABG Hemoglobin VBG pH Oxyhemoglobin Sodium Potassium Chloride Carbon Dioxide BUN Creatinine Glucose POC Glucose 217 H 239 H 254 H Lactic Acid Calcium AST ALT Alkaline Phosphatase CK-MB (CK-2) CK-MB (CK-2) Rel Index Total Protein Albumin TSH Urine WBC (Auto) Salicylates 02/28/17 02/28/17 02/28/17 05:38 11:00 19:44 WBC RBC Hgb Hct MCV MCH RDW Plt Count Lymph % (Auto) [place] % (Auto) Eos % (Auto) [place] # Seg Neutrophils % Seg Neuts % (Manual) Lymphocytes % (Manual) Seg Neutrophils # Seg Neutrophils # Man Lymphocytes # (Manual) APTT POC ABG pH ABG pH POC ABG pCO2 POC ABG pO2 ABG pO2 ABG HCO3 ABG Base Excess ABG Hemoglobin VBG pH Oxyhemoglobin Sodium Potassium Chloride Carbon Dioxide BUN Creatinine Glucose POC Glucose 325 H 203 H 116 H Lactic Acid Calcium AST ALT Alkaline Phosphatase CK-MB (CK-2) CK-MB (CK-2) Rel Index Total Protein Albumin TSH Urine WBC (Auto) Salicylates 03/01/17 03/01/17 03/01/17 00:08 05:31 12:17 WBC RBC Hgb Hct MCV MCH RDW Plt Count Lymph % (Auto) [place] % (Auto) Eos % (Auto) [place] # Seg Neutrophils % Seg Neuts % (Manual) Lymphocytes % (Manual) Seg Neutrophils # Seg Neutrophils # Man Lymphocytes # (Manual) APTT POC ABG pH ABG pH POC ABG pCO2 POC ABG pO2 ABG pO2 ABG HCO3 ABG Base Excess ABG Hemoglobin VBG pH Oxyhemoglobin Sodium Potassium Chloride Carbon Dioxide BUN Creatinine Glucose POC Glucose 202 H 183 H 184 H Lactic Acid Calcium AST ALT Alkaline Phosphatase CK-MB (CK-2) CK-MB (CK-2) Rel Index Total Protein Albumin TSH Urine WBC (Auto) Salicylates 03/02/17 03/02/17 03/02/17 00:12 05:58 18:22 WBC RBC Hgb Hct MCV MCH RDW Plt Count Lymph % (Auto) [place] % (Auto) Eos % (Auto) [place] # Seg Neutrophils % Seg Neuts % (Manual) Lymphocytes % (Manual) Seg Neutrophils # Seg Neutrophils # Man Lymphocytes # (Manual) APTT POC ABG pH ABG pH POC ABG pCO2 POC ABG pO2 ABG pO2 ABG HCO3 ABG Base Excess ABG Hemoglobin VBG pH Oxyhemoglobin Sodium Potassium Chloride Carbon Dioxide BUN Creatinine Glucose POC Glucose 117 H 176 H 156 H Lactic Acid Calcium AST ALT Alkaline Phosphatase CK-MB (CK-2) CK-MB (CK-2) Rel Index Total Protein Albumin TSH Urine WBC (Auto) Salicylates 03/02/17 03/03/17 03/03/17 23:51 05:44 11:32 WBC RBC Hgb Hct MCV MCH RDW Plt Count Lymph % (Auto) [place] % (Auto) Eos % (Auto) [place] # Seg Neutrophils % Seg Neuts % (Manual) Lymphocytes % (Manual) Seg Neutrophils # Seg Neutrophils # Man Lymphocytes # (Manual) APTT POC ABG pH ABG pH POC ABG pCO2 POC ABG pO2 ABG pO2 ABG HCO3 ABG Base Excess ABG Hemoglobin VBG pH Oxyhemoglobin Sodium Potassium Chloride Carbon Dioxide BUN Creatinine Glucose POC Glucose 211 H 117 H 133 H Lactic Acid Calcium AST ALT Alkaline Phosphatase CK-MB (CK-2) CK-MB (CK-2) Rel Index Total Protein Albumin TSH Urine WBC (Auto) Salicylates 03/03/17 03/03/17 03/04/17 17:43 23:17 05:30 WBC RBC Hgb Hct MCV MCH RDW Plt Count Lymph % (Auto) [place] % (Auto) Eos % (Auto) [place] # Seg Neutrophils % Seg Neuts % (Manual) Lymphocytes % (Manual) Seg Neutrophils # Seg Neutrophils # Man Lymphocytes # (Manual) APTT POC ABG pH ABG pH POC ABG pCO2 POC ABG pO2 ABG pO2 ABG HCO3 ABG Base Excess ABG Hemoglobin VBG pH Oxyhemoglobin Sodium Potassium Chloride Carbon Dioxide BUN Creatinine Glucose POC Glucose 206 H 170 H 126 H Lactic Acid Calcium AST ALT Alkaline Phosphatase CK-MB (CK-2) CK-MB (CK-2) Rel Index Total Protein Albumin TSH Urine WBC (Auto) Salicylates 03/04/17 03/04/17 03/05/17 12:17 17:27 05:20 WBC RBC Hgb Hct MCV MCH RDW Plt Count Lymph % (Auto) [place] % (Auto) Eos % (Auto) [place] # Seg Neutrophils % Seg Neuts % (Manual) Lymphocytes % (Manual) Seg Neutrophils # Seg Neutrophils # Man Lymphocytes # (Manual) APTT POC ABG pH ABG pH POC ABG pCO2 POC ABG pO2 ABG pO2 ABG HCO3 ABG Base Excess ABG Hemoglobin VBG pH Oxyhemoglobin Sodium Potassium Chloride Carbon Dioxide BUN Creatinine Glucose POC Glucose 135 H 121 H 185 H Lactic Acid Calcium AST ALT Alkaline Phosphatase CK-MB (CK-2) CK-MB (CK-2) Rel Index Total Protein Albumin TSH Urine WBC (Auto) Salicylates 03/05/17 03/06/17 03/06/17 11:50 11:52 17:34 WBC RBC Hgb Hct MCV MCH RDW Plt Count Lymph % (Auto) [place] % (Auto) Eos % (Auto) [place] # Seg Neutrophils % Seg Neuts % (Manual) Lymphocytes % (Manual) Seg Neutrophils # Seg Neutrophils # Man Lymphocytes # (Manual) APTT POC ABG pH ABG pH POC ABG pCO2 POC ABG pO2 ABG pO2 ABG HCO3 ABG Base Excess ABG Hemoglobin VBG pH Oxyhemoglobin Sodium Potassium Chloride Carbon Dioxide BUN Creatinine Glucose POC Glucose 116 H 133 H 181 H Lactic Acid Calcium AST ALT Alkaline Phosphatase CK-MB (CK-2) CK-MB (CK-2) Rel Index Total Protein Albumin TSH Urine WBC (Auto) Salicylates 03/07/17 03/07/17 03/07/17 05:21 11:36 17:49 WBC RBC Hgb Hct MCV MCH RDW Plt Count Lymph % (Auto) [place] % (Auto) Eos % (Auto) [place] # Seg Neutrophils % Seg Neuts % (Manual) Lymphocytes % (Manual) Seg Neutrophils # Seg Neutrophils # Man Lymphocytes # (Manual) APTT POC ABG pH ABG pH POC ABG pCO2 POC ABG pO2 ABG pO2 ABG HCO3 ABG Base Excess ABG Hemoglobin VBG pH Oxyhemoglobin Sodium Potassium Chloride Carbon Dioxide BUN Creatinine Glucose POC Glucose 159 H 137 H 158 H Lactic Acid Calcium AST ALT Alkaline Phosphatase CK-MB (CK-2) CK-MB (CK-2) Rel Index Total Protein Albumin TSH Urine WBC (Auto) Salicylates 03/08/17 03/08/17 03/08/17 05:51 13:58 23:50 WBC RBC Hgb Hct MCV MCH RDW Plt Count Lymph % (Auto) [place] % (Auto) Eos % (Auto) [place] # Seg Neutrophils % Seg Neuts % (Manual) Lymphocytes % (Manual) Seg Neutrophils # Seg Neutrophils # Man Lymphocytes # (Manual) APTT POC ABG pH ABG pH POC ABG pCO2 POC ABG pO2 ABG pO2 ABG HCO3 ABG Base Excess ABG Hemoglobin VBG pH Oxyhemoglobin Sodium Potassium Chloride Carbon Dioxide BUN Creatinine Glucose POC Glucose 122 H 182 H 114 H Lactic Acid Calcium AST ALT Alkaline Phosphatase CK-MB (CK-2) CK-MB (CK-2) Rel Index Total Protein Albumin TSH Urine WBC (Auto) Salicylates 03/09/17 03/09/17 03/09/17 05:21 05:51 05:51 WBC RBC 3.61 L Hgb 9.5 L Hct 28.3 L MCV 79 L MCH 26 L RDW 17.8 H Plt Count Lymph % (Auto) [place] % (Auto) Eos % (Auto) [place] # Seg Neutrophils % Seg Neuts % (Manual) Lymphocytes % (Manual) Seg Neutrophils # Seg Neutrophils # Man Lymphocytes # (Manual) APTT POC ABG pH ABG pH POC ABG pCO2 POC ABG pO2 ABG pO2 ABG HCO3 ABG Base Excess ABG Hemoglobin VBG pH Oxyhemoglobin Sodium 134 L Potassium Chloride 95.5 L Carbon Dioxide BUN 33 H Creatinine 0.5 L Glucose 143 H POC Glucose 153 H Lactic Acid Calcium AST ALT Alkaline Phosphatase CK-MB (CK-2) CK-MB (CK-2) Rel Index Total Protein Albumin TSH Urine WBC (Auto) Salicylates 03/09/17 03/09/17 03/09/17 12:10 18:13 21:00 WBC RBC Hgb Hct MCV MCH RDW Plt Count Lymph % (Auto) [place] % (Auto) Eos % (Auto) [place] # Seg Neutrophils % Seg Neuts % (Manual) Lymphocytes % (Manual) Seg Neutrophils # Seg Neutrophils # Man Lymphocytes # (Manual) APTT POC ABG pH ABG pH POC ABG pCO2 POC ABG pO2 ABG pO2 ABG HCO3 ABG Base Excess ABG Hemoglobin VBG pH Oxyhemoglobin Sodium Potassium Chloride Carbon Dioxide BUN Creatinine Glucose POC Glucose 203 H 221 H 198 H Lactic Acid Calcium AST ALT Alkaline Phosphatase CK-MB (CK-2) CK-MB (CK-2) Rel Index Total Protein Albumin TSH Urine WBC (Auto) Salicylates 03/09/17 03/10/17 03/10/17 23:58 05:09 05:09 WBC RBC Hgb 10.3 L Hct 30.5 L MCV 78 L MCH 26 L RDW 17.9 H Plt Count Lymph % (Auto) [place] % (Auto) 10.0 H Eos % (Auto) 6.0 H [place] # Seg Neutrophils % Seg Neuts % (Manual) Lymphocytes % (Manual) Seg Neutrophils # Seg Neutrophils # Man Lymphocytes # (Manual) APTT POC ABG pH ABG pH POC ABG pCO2 POC ABG pO2 ABG pO2 ABG HCO3 ABG Base Excess ABG Hemoglobin VBG pH Oxyhemoglobin Sodium 132 L Potassium Chloride 92.2 L Carbon Dioxide BUN 33 H Creatinine 0.5 L Glucose 50 L POC Glucose 167 H Lactic Acid Calcium AST ALT Alkaline Phosphatase CK-MB (CK-2) CK-MB (CK-2) Rel Index Total Protein Albumin TSH Urine WBC (Auto) Salicylates 03/10/17 03/10/17 03/10/17 05:33 05:34 11:48 WBC RBC Hgb Hct MCV MCH RDW Plt Count Lymph % (Auto) [place] % (Auto) Eos % (Auto) [place] # Seg Neutrophils % Seg Neuts % (Manual) Lymphocytes % (Manual) Seg Neutrophils # Seg Neutrophils # Man Lymphocytes # (Manual) APTT POC ABG pH ABG pH POC ABG pCO2 POC ABG pO2 ABG pO2 ABG HCO3 ABG Base Excess ABG Hemoglobin VBG pH Oxyhemoglobin Sodium Potassium Chloride Carbon Dioxide BUN Creatinine Glucose POC Glucose 52 L 53 L 148 H Lactic Acid Calcium AST ALT Alkaline Phosphatase CK-MB (CK-2) CK-MB (CK-2) Rel Index Total Protein Albumin TSH Urine WBC (Auto) Salicylates 03/10/17 03/10/17 03/11/17 17:53 23:47 05:18 WBC RBC Hgb Hct MCV MCH RDW Plt Count Lymph % (Auto) [place] % (Auto) Eos % (Auto) [place] # Seg Neutrophils % Seg Neuts % (Manual) Lymphocytes % (Manual) Seg Neutrophils # Seg Neutrophils # Man Lymphocytes # (Manual) APTT POC ABG pH ABG pH POC ABG pCO2 POC ABG pO2 ABG pO2 ABG HCO3 ABG Base Excess ABG Hemoglobin VBG pH Oxyhemoglobin Sodium Potassium Chloride Carbon Dioxide BUN Creatinine Glucose POC Glucose 189 H 398 H 126 H Lactic Acid Calcium AST ALT Alkaline Phosphatase CK-MB (CK-2) CK-MB (CK-2) Rel Index Total Protein Albumin TSH Urine WBC (Auto) Salicylates 03/11/17 03/11/17 03/11/17 11:53 17:30 23:10 WBC RBC Hgb Hct MCV MCH RDW Plt Count Lymph % (Auto) [place] % (Auto) Eos % (Auto) [place] # Seg Neutrophils % Seg Neuts % (Manual) Lymphocytes % (Manual) Seg Neutrophils # Seg Neutrophils # Man Lymphocytes # (Manual) APTT POC ABG pH ABG pH POC ABG pCO2 POC ABG pO2 ABG pO2 ABG HCO3 ABG Base Excess ABG Hemoglobin VBG pH Oxyhemoglobin Sodium Potassium Chloride Carbon Dioxide BUN Creatinine Glucose POC Glucose 198 H 142 H 244 H Lactic Acid Calcium AST ALT Alkaline Phosphatase CK-MB (CK-2) CK-MB (CK-2) Rel Index Total Protein Albumin TSH Urine WBC (Auto) Salicylates 03/12/17 03/12/17 03/12/17 04:36 11:49 17:23 WBC RBC Hgb Hct MCV MCH RDW Plt Count Lymph % (Auto) [place] % (Auto) Eos % (Auto) [place] # Seg Neutrophils % Seg Neuts % (Manual) Lymphocytes % (Manual) Seg Neutrophils # Seg Neutrophils # Man Lymphocytes # (Manual) APTT POC ABG pH ABG pH POC ABG pCO2 POC ABG pO2 ABG pO2 ABG HCO3 ABG Base Excess ABG Hemoglobin VBG pH Oxyhemoglobin Sodium Potassium Chloride Carbon Dioxide BUN Creatinine Glucose POC Glucose 205 H 197 H 209 H Lactic Acid Calcium AST ALT Alkaline Phosphatase CK-MB (CK-2) CK-MB (CK-2) Rel Index Total Protein Albumin TSH Urine WBC (Auto) Salicylates 03/12/17 03/13/17 03/13/17 23:51 05:32 11:43 WBC RBC Hgb Hct MCV MCH RDW Plt Count Lymph % (Auto) [place] % (Auto) Eos % (Auto) [place] # Seg Neutrophils % Seg Neuts % (Manual) Lymphocytes % (Manual) Seg Neutrophils # Seg Neutrophils # Man Lymphocytes # (Manual) APTT POC ABG pH ABG pH POC ABG pCO2 POC ABG pO2 ABG pO2 ABG HCO3 ABG Base Excess ABG Hemoglobin VBG pH Oxyhemoglobin Sodium Potassium Chloride Carbon Dioxide BUN Creatinine Glucose POC Glucose 210 H 154 H 164 H Lactic Acid Calcium AST ALT Alkaline Phosphatase CK-MB (CK-2) CK-MB (CK-2) Rel Index Total Protein Albumin TSH Urine WBC (Auto) Salicylates 03/13/17 03/13/17 03/14/17 17:11 23:26 05:42 WBC RBC Hgb Hct MCV MCH RDW Plt Count Lymph % (Auto) [place] % (Auto) Eos % (Auto) [place] # Seg Neutrophils % Seg Neuts % (Manual) Lymphocytes % (Manual) Seg Neutrophils # Seg Neutrophils # Man Lymphocytes # (Manual) APTT POC ABG pH ABG pH POC ABG pCO2 POC ABG pO2 ABG pO2 ABG HCO3 ABG Base Excess ABG Hemoglobin VBG pH Oxyhemoglobin Sodium Potassium Chloride Carbon Dioxide BUN Creatinine Glucose POC Glucose 195 H 240 H 230 H Lactic Acid Calcium AST ALT Alkaline Phosphatase CK-MB (CK-2) CK-MB (CK-2) Rel Index Total Protein Albumin TSH Urine WBC (Auto) Salicylates 03/14/17 03/14/17 03/14/17 14:04 17:34 23:42 WBC RBC Hgb Hct MCV MCH RDW Plt Count Lymph % (Auto) [place] % (Auto) Eos % (Auto) [place] # Seg Neutrophils % Seg Neuts % (Manual) Lymphocytes % (Manual) Seg Neutrophils # Seg Neutrophils # Man Lymphocytes # (Manual) APTT POC ABG pH ABG pH POC ABG pCO2 POC ABG pO2 ABG pO2 ABG HCO3 ABG Base Excess ABG Hemoglobin VBG pH Oxyhemoglobin Sodium Potassium Chloride Carbon Dioxide BUN Creatinine Glucose POC Glucose 227 H 186 H 225 H Lactic Acid Calcium AST ALT Alkaline Phosphatase CK-MB (CK-2) CK-MB (CK-2) Rel Index Total Protein Albumin TSH Urine WBC (Auto) Salicylates 03/15/17 03/15/17 03/15/17 05:21 17:13 21:37 WBC RBC Hgb Hct MCV MCH RDW Plt Count Lymph % (Auto) [place] % (Auto) Eos % (Auto) [place] # Seg Neutrophils % Seg Neuts % (Manual) Lymphocytes % (Manual) Seg Neutrophils # Seg Neutrophils # Man Lymphocytes # (Manual) APTT POC ABG pH ABG pH POC ABG pCO2 POC ABG pO2 ABG pO2 ABG HCO3 ABG Base Excess ABG Hemoglobin VBG pH Oxyhemoglobin Sodium Potassium Chloride Carbon Dioxide BUN Creatinine Glucose POC Glucose 244 H 203 H 216 H Lactic Acid Calcium AST ALT Alkaline Phosphatase CK-MB (CK-2) CK-MB (CK-2) Rel Index Total Protein Albumin TSH Urine WBC (Auto) Salicylates 03/16/17 03/16/17 03/16/17 05:52 18:07 21:54 WBC RBC Hgb Hct MCV MCH RDW Plt Count Lymph % (Auto) [place] % (Auto) Eos % (Auto) [place] # Seg Neutrophils % Seg Neuts % (Manual) Lymphocytes % (Manual) Seg Neutrophils # Seg Neutrophils # Man Lymphocytes # (Manual) APTT POC ABG pH ABG pH POC ABG pCO2 POC ABG pO2 ABG pO2 ABG HCO3 ABG Base Excess ABG Hemoglobin VBG pH Oxyhemoglobin Sodium Potassium Chloride Carbon Dioxide BUN Creatinine Glucose POC Glucose 248 H 254 H 244 H Lactic Acid Calcium AST ALT Alkaline Phosphatase CK-MB (CK-2) CK-MB (CK-2) Rel Index Total Protein Albumin TSH Urine WBC (Auto) Salicylates 03/17/17 03/17/17 03/17/17 07:07 07:42 07:43 WBC RBC Hgb 9.7 L Hct 29.1 L MCV 78 L MCH 26 L RDW 17.4 H Plt Count Lymph % (Auto) [place] % (Auto) Eos % (Auto) [place] # Seg Neutrophils % Seg Neuts % (Manual) Lymphocytes % (Manual) Seg Neutrophils # Seg Neutrophils # Man Lymphocytes # (Manual) APTT POC ABG pH ABG pH POC ABG pCO2 POC ABG pO2 ABG pO2 ABG HCO3 ABG Base Excess ABG Hemoglobin VBG pH Oxyhemoglobin Sodium Potassium Chloride 96.6 L Carbon Dioxide BUN 30 H Creatinine 0.5 L Glucose 251 H POC Glucose 222 H Lactic Acid Calcium AST ALT Alkaline Phosphatase CK-MB (CK-2) CK-MB (CK-2) Rel Index Total Protein Albumin TSH Urine WBC (Auto) Salicylates 03/17/17 03/17/17 03/18/17 14:08 21:20 14:24 WBC RBC Hgb Hct MCV MCH RDW Plt Count Lymph % (Auto) [place] % (Auto) Eos % (Auto) [place] # Seg Neutrophils % Seg Neuts % (Manual) Lymphocytes % (Manual) Seg Neutrophils # Seg Neutrophils # Man Lymphocytes # (Manual) APTT POC ABG pH ABG pH POC ABG pCO2 POC ABG pO2 ABG pO2 ABG HCO3 ABG Base Excess ABG Hemoglobin VBG pH Oxyhemoglobin Sodium Potassium Chloride Carbon Dioxide BUN Creatinine Glucose POC Glucose 281 H 239 H 195 H Lactic Acid Calcium AST ALT Alkaline Phosphatase CK-MB (CK-2) CK-MB (CK-2) Rel Index Total Protein Albumin TSH Urine WBC (Auto) Salicylates 03/18/17 03/19/17 03/19/17 21:37 04:57 14:23 WBC RBC Hgb Hct MCV MCH RDW Plt Count Lymph % (Auto) [place] % (Auto) Eos % (Auto) [place] # Seg Neutrophils % Seg Neuts % (Manual) Lymphocytes % (Manual) Seg Neutrophils # Seg Neutrophils # Man Lymphocytes # (Manual) APTT POC ABG pH ABG pH POC ABG pCO2 POC ABG pO2 ABG pO2 ABG HCO3 ABG Base Excess ABG Hemoglobin VBG pH Oxyhemoglobin Sodium Potassium Chloride Carbon Dioxide BUN Creatinine Glucose POC Glucose 227 H 205 H 277 H Lactic Acid Calcium AST ALT Alkaline Phosphatase CK-MB (CK-2) CK-MB (CK-2) Rel Index Total Protein Albumin TSH Urine WBC (Auto) Salicylates 03/19/17 03/19/17 03/20/17 20:31 21:47 04:55 WBC RBC Hgb Hct MCV MCH RDW Plt Count Lymph % (Auto) [place] % (Auto) Eos % (Auto) [place] # Seg Neutrophils % Seg Neuts % (Manual) Lymphocytes % (Manual) Seg Neutrophils # Seg Neutrophils # Man Lymphocytes # (Manual) APTT POC ABG pH ABG pH POC ABG pCO2 POC ABG pO2 ABG pO2 ABG HCO3 ABG Base Excess ABG Hemoglobin VBG pH Oxyhemoglobin Sodium Potassium Chloride Carbon Dioxide BUN Creatinine Glucose POC Glucose 256 H 270 H 202 H Lactic Acid Calcium AST ALT Alkaline Phosphatase CK-MB (CK-2) CK-MB (CK-2) Rel Index Total Protein Albumin TSH Urine WBC (Auto) Salicylates 03/20/17 03/20/17 03/21/17 14:09 21:40 05:09 WBC RBC Hgb Hct MCV MCH RDW Plt Count Lymph % (Auto) [place] % (Auto) Eos % (Auto) [place] # Seg Neutrophils % Seg Neuts % (Manual) Lymphocytes % (Manual) Seg Neutrophils # Seg Neutrophils # Man Lymphocytes # (Manual) APTT POC ABG pH ABG pH POC ABG pCO2 POC ABG pO2 ABG pO2 ABG HCO3 ABG Base Excess ABG Hemoglobin VBG pH Oxyhemoglobin Sodium Potassium Chloride Carbon Dioxide BUN Creatinine Glucose POC Glucose 200 H 214 H 233 H Lactic Acid Calcium AST ALT Alkaline Phosphatase CK-MB (CK-2) CK-MB (CK-2) Rel Index Total Protein Albumin TSH Urine WBC (Auto) Salicylates 03/21/17 03/21/17 03/22/17 14:06 21:26 05:43 WBC RBC Hgb Hct MCV MCH RDW Plt Count Lymph % (Auto) [place] % (Auto) Eos % (Auto) [place] # Seg Neutrophils % Seg Neuts % (Manual) Lymphocytes % (Manual) Seg Neutrophils # Seg Neutrophils # Man Lymphocytes # (Manual) APTT POC ABG pH ABG pH POC ABG pCO2 POC ABG pO2 ABG pO2 ABG HCO3 ABG Base Excess ABG Hemoglobin VBG pH Oxyhemoglobin Sodium Potassium Chloride Carbon Dioxide BUN Creatinine Glucose POC Glucose 250 H 155 H 251 H Lactic Acid Calcium AST ALT Alkaline Phosphatase CK-MB (CK-2) CK-MB (CK-2) Rel Index Total Protein Albumin TSH Urine WBC (Auto) Salicylates 03/22/17 03/22/17 03/23/17 13:46 21:16 00:23 WBC RBC Hgb Hct MCV MCH RDW Plt Count Lymph % (Auto) [place] % (Auto) Eos % (Auto) [place] # Seg Neutrophils % Seg Neuts % (Manual) Lymphocytes % (Manual) Seg Neutrophils # Seg Neutrophils # Man Lymphocytes # (Manual) APTT POC ABG pH ABG pH POC ABG pCO2 POC ABG pO2 ABG pO2 ABG HCO3 ABG Base Excess ABG Hemoglobin VBG pH Oxyhemoglobin Sodium Potassium Chloride Carbon Dioxide BUN Creatinine Glucose POC Glucose 269 H 197 H 126 H Lactic Acid Calcium AST ALT Alkaline Phosphatase CK-MB (CK-2) CK-MB (CK-2) Rel Index Total Protein Albumin TSH Urine WBC (Auto) Salicylates 03/23/17 03/23/17 03/23/17 05:39 14:06 21:39 WBC RBC Hgb Hct MCV MCH RDW Plt Count Lymph % (Auto) [place] % (Auto) Eos % (Auto) [place] # Seg Neutrophils % Seg Neuts % (Manual) Lymphocytes % (Manual) Seg Neutrophils # Seg Neutrophils # Man Lymphocytes # (Manual) APTT POC ABG pH ABG pH POC ABG pCO2 POC ABG pO2 ABG pO2 ABG HCO3 ABG Base Excess ABG Hemoglobin VBG pH Oxyhemoglobin Sodium Potassium Chloride Carbon Dioxide BUN Creatinine Glucose POC Glucose 234 H 241 H 248 H Lactic Acid Calcium AST ALT Alkaline Phosphatase CK-MB (CK-2) CK-MB (CK-2) Rel Index Total Protein Albumin TSH Urine WBC (Auto) Salicylates 03/24/17 03/24/17 03/25/17 05:06 21:46 05:38 WBC RBC Hgb Hct MCV MCH RDW Plt Count Lymph % (Auto) [place] % (Auto) Eos % (Auto) [place] # Seg Neutrophils % Seg Neuts % (Manual) Lymphocytes % (Manual) Seg Neutrophils # Seg Neutrophils # Man Lymphocytes # (Manual) APTT POC ABG pH ABG pH POC ABG pCO2 POC ABG pO2 ABG pO2 ABG HCO3 ABG Base Excess ABG Hemoglobin VBG pH Oxyhemoglobin Sodium Potassium Chloride Carbon Dioxide BUN Creatinine Glucose POC Glucose 232 H 276 H 242 H Lactic Acid Calcium AST ALT Alkaline Phosphatase CK-MB (CK-2) CK-MB (CK-2) Rel Index Total Protein Albumin TSH Urine WBC (Auto) Salicylates 03/25/17 03/25/17 03/26/17 14:30 23:14 13:53 WBC RBC Hgb Hct MCV MCH RDW Plt Count Lymph % (Auto) [place] % (Auto) Eos % (Auto) [place] # Seg Neutrophils % Seg Neuts % (Manual) Lymphocytes % (Manual) Seg Neutrophils # Seg Neutrophils # Man Lymphocytes # (Manual) APTT POC ABG pH ABG pH POC ABG pCO2 POC ABG pO2 ABG pO2 ABG HCO3 ABG Base Excess ABG Hemoglobin VBG pH Oxyhemoglobin Sodium Potassium Chloride Carbon Dioxide BUN Creatinine Glucose POC Glucose 246 H 208 H 195 H Lactic Acid Calcium AST ALT Alkaline Phosphatase CK-MB (CK-2) CK-MB (CK-2) Rel Index Total Protein Albumin TSH Urine WBC (Auto) Salicylates 03/26/17 03/27/17 03/27/17 21:58 05:18 14:57 WBC RBC Hgb Hct MCV MCH RDW Plt Count Lymph % (Auto) [place] % (Auto) Eos % (Auto) [place] # Seg Neutrophils % Seg Neuts % (Manual) Lymphocytes % (Manual) Seg Neutrophils # Seg Neutrophils # Man Lymphocytes # (Manual) APTT POC ABG pH ABG pH POC ABG pCO2 POC ABG pO2 ABG pO2 ABG HCO3 ABG Base Excess ABG Hemoglobin VBG pH Oxyhemoglobin Sodium Potassium Chloride Carbon Dioxide BUN Creatinine Glucose POC Glucose 241 H 199 H 269 H Lactic Acid Calcium AST ALT Alkaline Phosphatase CK-MB (CK-2) CK-MB (CK-2) Rel Index Total Protein Albumin TSH Urine WBC (Auto) Salicylates 03/27/17 03/28/17 03/28/17 21:33 13:52 21:29 WBC RBC Hgb Hct MCV MCH RDW Plt Count Lymph % (Auto) [place] % (Auto) Eos % (Auto) [place] # Seg Neutrophils % Seg Neuts % (Manual) Lymphocytes % (Manual) Seg Neutrophils # Seg Neutrophils # Man Lymphocytes # (Manual) APTT POC ABG pH ABG pH POC ABG pCO2 POC ABG pO2 ABG pO2 ABG HCO3 ABG Base Excess ABG Hemoglobin VBG pH Oxyhemoglobin Sodium Potassium Chloride Carbon Dioxide BUN Creatinine Glucose POC Glucose 214 H 243 H 286 H Lactic Acid Calcium AST ALT Alkaline Phosphatase CK-MB (CK-2) CK-MB (CK-2) Rel Index Total Protein Albumin TSH Urine WBC (Auto) Salicylates 03/29/17 03/29/17 03/29/17 04:32 04:32 13:58 WBC RBC Hgb 10.6 L Hct 32.9 L MCV 78 L MCH 25 L RDW 17.6 H Plt Count Lymph % (Auto) 38.0 H [place] % (Auto) 9.7 H Eos % (Auto) [place] # Seg Neutrophils % Seg Neuts % (Manual) Lymphocytes % (Manual) Seg Neutrophils # Seg Neutrophils # Man Lymphocytes # (Manual) APTT POC ABG pH ABG pH POC ABG pCO2 POC ABG pO2 ABG pO2 ABG HCO3 ABG Base Excess ABG Hemoglobin VBG pH Oxyhemoglobin Sodium 132 L Potassium Chloride 94.0 L Carbon Dioxide BUN 28 H Creatinine 0.5 L Glucose 236 H POC Glucose 171 H Lactic Acid Calcium AST ALT 71 H Alkaline Phosphatase 391 H CK-MB (CK-2) CK-MB (CK-2) Rel Index Total Protein 8.3 H Albumin 2.9 L TSH Urine WBC (Auto) Salicylates 03/29/17 03/30/17 03/30/17 20:59 06:07 11:52 WBC RBC Hgb Hct MCV MCH RDW Plt Count Lymph % (Auto) [place] % (Auto) Eos % (Auto) [place] # Seg Neutrophils % Seg Neuts % (Manual) Lymphocytes % (Manual) Seg Neutrophils # Seg Neutrophils # Man Lymphocytes # (Manual) APTT POC ABG pH ABG pH POC ABG pCO2 POC ABG pO2 ABG pO2 ABG HCO3 ABG Base Excess ABG Hemoglobin VBG pH Oxyhemoglobin Sodium Potassium Chloride Carbon Dioxide BUN Creatinine Glucose POC Glucose 215 H 259 H 197 H Lactic Acid Calcium AST ALT Alkaline Phosphatase CK-MB (CK-2) CK-MB (CK-2) Rel Index Total Protein Albumin TSH Urine WBC (Auto) Salicylates 03/30/17 03/31/17 03/31/17 21:34 05:42 14:34 WBC RBC Hgb Hct MCV MCH RDW Plt Count Lymph % (Auto) [place] % (Auto) Eos % (Auto) [place] # Seg Neutrophils % Seg Neuts % (Manual) Lymphocytes % (Manual) Seg Neutrophils # Seg Neutrophils # Man Lymphocytes # (Manual) APTT POC ABG pH ABG pH POC ABG pCO2 POC ABG pO2 ABG pO2 ABG HCO3 ABG Base Excess ABG Hemoglobin VBG pH Oxyhemoglobin Sodium Potassium Chloride Carbon Dioxide BUN Creatinine Glucose POC Glucose 207 H 184 H 213 H Lactic Acid Calcium AST ALT Alkaline Phosphatase CK-MB (CK-2) CK-MB (CK-2) Rel Index Total Protein Albumin TSH Urine WBC (Auto) Salicylates 03/31/17 04/01/17 04/01/17 21:32 05:53 13:48 WBC RBC Hgb Hct MCV MCH RDW Plt Count Lymph % (Auto) [place] % (Auto) Eos % (Auto) [place] # Seg Neutrophils % Seg Neuts % (Manual) Lymphocytes % (Manual) Seg Neutrophils # Seg Neutrophils # Man Lymphocytes # (Manual) APTT POC ABG pH ABG pH POC ABG pCO2 POC ABG pO2 ABG pO2 ABG HCO3 ABG Base Excess ABG Hemoglobin VBG pH Oxyhemoglobin Sodium Potassium Chloride Carbon Dioxide BUN Creatinine Glucose POC Glucose 249 H 225 H 256 H Lactic Acid Calcium AST ALT Alkaline Phosphatase CK-MB (CK-2) CK-MB (CK-2) Rel Index Total Protein Albumin TSH Urine WBC (Auto) Salicylates 04/01/17 04/02/17 04/02/17 21:34 05:32 14:05 WBC RBC Hgb Hct MCV MCH RDW Plt Count Lymph % (Auto) [place] % (Auto) Eos % (Auto) [place] # Seg Neutrophils % Seg Neuts % (Manual) Lymphocytes % (Manual) Seg Neutrophils # Seg Neutrophils # Man Lymphocytes # (Manual) APTT POC ABG pH ABG pH POC ABG pCO2 POC ABG pO2 ABG pO2 ABG HCO3 ABG Base Excess ABG Hemoglobin VBG pH Oxyhemoglobin Sodium Potassium Chloride Carbon Dioxide BUN Creatinine Glucose POC Glucose 292 H 220 H 187 H Lactic Acid Calcium AST ALT Alkaline Phosphatase CK-MB (CK-2) CK-MB (CK-2) Rel Index Total Protein Albumin TSH Urine WBC (Auto) Salicylates 04/02/17 04/03/17 04/03/17 21:57 04:49 14:12 WBC RBC Hgb Hct MCV MCH RDW Plt Count Lymph % (Auto) [place] % (Auto) Eos % (Auto) [place] # Seg Neutrophils % Seg Neuts % (Manual) Lymphocytes % (Manual) Seg Neutrophils # Seg Neutrophils # Man Lymphocytes # (Manual) APTT POC ABG pH ABG pH POC ABG pCO2 POC ABG pO2 ABG pO2 ABG HCO3 ABG Base Excess ABG Hemoglobin VBG pH Oxyhemoglobin Sodium Potassium Chloride Carbon Dioxide BUN Creatinine Glucose POC Glucose 285 H 256 H 197 H Lactic Acid Calcium AST ALT Alkaline Phosphatase CK-MB (CK-2) CK-MB (CK-2) Rel Index Total Protein Albumin TSH Urine WBC (Auto) Salicylates 04/03/17 04/04/17 04/04/17 21:11 05:20 13:18 WBC RBC Hgb Hct MCV MCH RDW Plt Count Lymph % (Auto) [place] % (Auto) Eos % (Auto) [place] # Seg Neutrophils % Seg Neuts % (Manual) Lymphocytes % (Manual) Seg Neutrophils # Seg Neutrophils # Man Lymphocytes # (Manual) APTT POC ABG pH ABG pH POC ABG pCO2 POC ABG pO2 ABG pO2 ABG HCO3 ABG Base Excess ABG Hemoglobin VBG pH Oxyhemoglobin Sodium Potassium Chloride Carbon Dioxide BUN Creatinine Glucose POC Glucose 166 H 228 H 252 H Lactic Acid Calcium AST ALT Alkaline Phosphatase CK-MB (CK-2) CK-MB (CK-2) Rel Index Total Protein Albumin TSH Urine WBC (Auto) Salicylates 04/04/17 04/05/17 04/05/17 21:51 06:14 09:54 WBC RBC Hgb Hct MCV MCH RDW Plt Count Lymph % (Auto) [place] % (Auto) Eos % (Auto) [place] # Seg Neutrophils % Seg Neuts % (Manual) Lymphocytes % (Manual) Seg Neutrophils # Seg Neutrophils # Man Lymphocytes # (Manual) APTT POC ABG pH ABG pH POC ABG pCO2 POC ABG pO2 ABG pO2 ABG HCO3 ABG Base Excess ABG Hemoglobin VBG pH Oxyhemoglobin Sodium Potassium Chloride Carbon Dioxide BUN Creatinine Glucose POC Glucose 252 H 152 H 181 H Lactic Acid Calcium AST ALT Alkaline Phosphatase CK-MB (CK-2) CK-MB (CK-2) Rel Index Total Protein Albumin TSH Urine WBC (Auto) Salicylates 04/05/17 04/05/17 04/05/17 14:49 17:34 21:38 WBC RBC Hgb Hct MCV MCH RDW Plt Count Lymph % (Auto) [place] % (Auto) Eos % (Auto) [place] # Seg Neutrophils % Seg Neuts % (Manual) Lymphocytes % (Manual) Seg Neutrophils # Seg Neutrophils # Man Lymphocytes # (Manual) APTT POC ABG pH ABG pH POC ABG pCO2 POC ABG pO2 ABG pO2 ABG HCO3 ABG Base Excess ABG Hemoglobin VBG pH Oxyhemoglobin Sodium Potassium Chloride Carbon Dioxide BUN Creatinine Glucose POC Glucose 219 H 268 H 278 H Lactic Acid Calcium AST ALT Alkaline Phosphatase CK-MB (CK-2) CK-MB (CK-2) Rel Index Total Protein Albumin TSH Urine WBC (Auto) Salicylates 04/06/17 04/06/17 04/07/17 15:04 22:14 05:09 WBC RBC Hgb Hct MCV MCH RDW Plt Count Lymph % (Auto) [place] % (Auto) Eos % (Auto) [place] # Seg Neutrophils % Seg Neuts % (Manual) Lymphocytes % (Manual) Seg Neutrophils # Seg Neutrophils # Man Lymphocytes # (Manual) APTT POC ABG pH ABG pH POC ABG pCO2 POC ABG pO2 ABG pO2 ABG HCO3 ABG Base Excess ABG Hemoglobin VBG pH Oxyhemoglobin Sodium Potassium Chloride Carbon Dioxide BUN Creatinine Glucose POC Glucose 285 H 106 H 334 H Lactic Acid Calcium AST ALT Alkaline Phosphatase CK-MB (CK-2) CK-MB (CK-2) Rel Index Total Protein Albumin TSH Urine WBC (Auto) Salicylates 04/07/17 04/07/17 04/08/17 14:45 21:48 05:28 WBC RBC Hgb Hct MCV MCH RDW Plt Count Lymph % (Auto) [place] % (Auto) Eos % (Auto) [place] # Seg Neutrophils % Seg Neuts % (Manual) Lymphocytes % (Manual) Seg Neutrophils # Seg Neutrophils # Man Lymphocytes # (Manual) APTT POC ABG pH ABG pH POC ABG pCO2 POC ABG pO2 ABG pO2 ABG HCO3 ABG Base Excess ABG Hemoglobin VBG pH Oxyhemoglobin Sodium Potassium Chloride Carbon Dioxide BUN Creatinine Glucose POC Glucose 173 H 304 H 314 H Lactic Acid Calcium AST ALT Alkaline Phosphatase CK-MB (CK-2) CK-MB (CK-2) Rel Index Total Protein Albumin TSH Urine WBC (Auto) Salicylates 04/08/17 04/08/17 04/08/17 15:57 16:17 22:21 WBC RBC Hgb Hct MCV MCH RDW Plt Count Lymph % (Auto) [place] % (Auto) Eos % (Auto) [place] # Seg Neutrophils % Seg Neuts % (Manual) Lymphocytes % (Manual) Seg Neutrophils # Seg Neutrophils # Man Lymphocytes # (Manual) APTT POC ABG pH ABG pH POC ABG pCO2 POC ABG pO2 ABG pO2 ABG HCO3 ABG Base Excess ABG Hemoglobin VBG pH Oxyhemoglobin Sodium Potassium Chloride Carbon Dioxide BUN Creatinine Glucose POC Glucose 356 H 337 H 323 H Lactic Acid Calcium AST ALT Alkaline Phosphatase CK-MB (CK-2) CK-MB (CK-2) Rel Index Total Protein Albumin TSH Urine WBC (Auto) Salicylates 04/09/17 04/09/17 04/09/17 06:19 15:30 21:52 WBC RBC Hgb Hct MCV MCH RDW Plt Count Lymph % (Auto) [place] % (Auto) Eos % (Auto) [place] # Seg Neutrophils % Seg Neuts % (Manual) Lymphocytes % (Manual) Seg Neutrophils # Seg Neutrophils # Man Lymphocytes # (Manual) APTT POC ABG pH ABG pH POC ABG pCO2 POC ABG pO2 ABG pO2 ABG HCO3 ABG Base Excess ABG Hemoglobin VBG pH Oxyhemoglobin Sodium Potassium Chloride Carbon Dioxide BUN Creatinine Glucose POC Glucose 340 H 332 H 341 H Lactic Acid Calcium AST ALT Alkaline Phosphatase CK-MB (CK-2) CK-MB (CK-2) Rel Index Total Protein Albumin TSH Urine WBC (Auto) Salicylates 04/10/17 04/10/17 04/10/17 01:53 05:33 17:40 WBC RBC Hgb Hct MCV MCH RDW Plt Count Lymph % (Auto) [place] % (Auto) Eos % (Auto) [place] # Seg Neutrophils % Seg Neuts % (Manual) Lymphocytes % (Manual) Seg Neutrophils # Seg Neutrophils # Man Lymphocytes # (Manual) APTT POC ABG pH ABG pH POC ABG pCO2 POC ABG pO2 ABG pO2 ABG HCO3 ABG Base Excess ABG Hemoglobin VBG pH Oxyhemoglobin Sodium Potassium Chloride Carbon Dioxide BUN Creatinine Glucose POC Glucose 261 H 277 H 304 H Lactic Acid Calcium AST ALT Alkaline Phosphatase CK-MB (CK-2) CK-MB (CK-2) Rel Index Total Protein Albumin TSH Urine WBC (Auto) Salicylates 04/10/17 04/11/17 04/11/17 21:29 05:28 14:02 WBC RBC Hgb Hct MCV MCH RDW Plt Count Lymph % (Auto) [place] % (Auto) Eos % (Auto) [place] # Seg Neutrophils % Seg Neuts % (Manual) Lymphocytes % (Manual) Seg Neutrophils # Seg Neutrophils # Man Lymphocytes # (Manual) APTT POC ABG pH ABG pH POC ABG pCO2 POC ABG pO2 ABG pO2 ABG HCO3 ABG Base Excess ABG Hemoglobin VBG pH Oxyhemoglobin Sodium Potassium Chloride Carbon Dioxide BUN Creatinine Glucose POC Glucose 361 H 204 H 236 H Lactic Acid Calcium AST ALT Alkaline Phosphatase CK-MB (CK-2) CK-MB (CK-2) Rel Index Total Protein Albumin TSH Urine WBC (Auto) Salicylates 04/11/17 04/12/17 04/12/17 21:43 05:00 11:53 WBC RBC Hgb Hct MCV MCH RDW Plt Count Lymph % (Auto) [place] % (Auto) Eos % (Auto) [place] # Seg Neutrophils % Seg Neuts % (Manual) Lymphocytes % (Manual) Seg Neutrophils # Seg Neutrophils # Man Lymphocytes # (Manual) APTT POC ABG pH ABG pH POC ABG pCO2 POC ABG pO2 ABG pO2 ABG HCO3 ABG Base Excess ABG Hemoglobin VBG pH Oxyhemoglobin Sodium Potassium Chloride Carbon Dioxide BUN Creatinine Glucose POC Glucose 287 H 294 H 265 H Lactic Acid Calcium AST ALT Alkaline Phosphatase CK-MB (CK-2) CK-MB (CK-2) Rel Index Total Protein Albumin TSH Urine WBC (Auto) Salicylates 04/12/17 04/12/17 04/13/17 21:21 23:44 06:05 WBC RBC Hgb Hct MCV MCH RDW Plt Count Lymph % (Auto) [place] % (Auto) Eos % (Auto) [place] # Seg Neutrophils % Seg Neuts % (Manual) Lymphocytes % (Manual) Seg Neutrophils # Seg Neutrophils # Man Lymphocytes # (Manual) APTT POC ABG pH ABG pH POC ABG pCO2 POC ABG pO2 ABG pO2 ABG HCO3 ABG Base Excess ABG Hemoglobin VBG pH Oxyhemoglobin Sodium Potassium Chloride Carbon Dioxide BUN Creatinine Glucose POC Glucose 289 H 348 H 326 H Lactic Acid Calcium AST ALT Alkaline Phosphatase CK-MB (CK-2) CK-MB (CK-2) Rel Index Total Protein Albumin TSH Urine WBC (Auto) Salicylates 04/13/17 04/13/17 04/14/17 13:54 21:15 05:49 WBC RBC Hgb Hct MCV MCH RDW Plt Count Lymph % (Auto) [place] % (Auto) Eos % (Auto) [place] # Seg Neutrophils % Seg Neuts % (Manual) Lymphocytes % (Manual) Seg Neutrophils # Seg Neutrophils # Man Lymphocytes # (Manual) APTT POC ABG pH ABG pH POC ABG pCO2 POC ABG pO2 ABG pO2 ABG HCO3 ABG Base Excess ABG Hemoglobin VBG pH Oxyhemoglobin Sodium Potassium Chloride Carbon Dioxide BUN Creatinine Glucose POC Glucose 326 H 263 H 319 H Lactic Acid Calcium AST ALT Alkaline Phosphatase CK-MB (CK-2) CK-MB (CK-2) Rel Index Total Protein Albumin TSH Urine WBC (Auto) Salicylates 04/14/17 04/14/17 04/15/17 13:26 23:13 14:24 WBC RBC Hgb Hct MCV MCH RDW Plt Count Lymph % (Auto) [place] % (Auto) Eos % (Auto) [place] # Seg Neutrophils % Seg Neuts % (Manual) Lymphocytes % (Manual) Seg Neutrophils # Seg Neutrophils # Man Lymphocytes # (Manual) APTT POC ABG pH ABG pH POC ABG pCO2 POC ABG pO2 ABG pO2 ABG HCO3 ABG Base Excess ABG Hemoglobin VBG pH Oxyhemoglobin Sodium Potassium Chloride Carbon Dioxide BUN Creatinine Glucose POC Glucose 207 H 365 H 308 H Lactic Acid Calcium AST ALT Alkaline Phosphatase CK-MB (CK-2) CK-MB (CK-2) Rel Index Total Protein Albumin TSH Urine WBC (Auto) Salicylates 04/15/17 04/15/17 04/15/17 21:00 22:18 23:12 WBC RBC Hgb Hct MCV MCH RDW Plt Count Lymph % (Auto) [place] % (Auto) Eos % (Auto) [place] # Seg Neutrophils % Seg Neuts % (Manual) Lymphocytes % (Manual) Seg Neutrophils # Seg Neutrophils # Man Lymphocytes # (Manual) APTT POC ABG pH ABG pH POC ABG pCO2 POC ABG pO2 ABG pO2 ABG HCO3 ABG Base Excess ABG Hemoglobin VBG pH Oxyhemoglobin Sodium Potassium Chloride Carbon Dioxide BUN Creatinine Glucose POC Glucose 407 H 287 H 325 H Lactic Acid Calcium AST ALT Alkaline Phosphatase CK-MB (CK-2) CK-MB (CK-2) Rel Index Total Protein Albumin TSH Urine WBC (Auto) Salicylates 04/16/17 04/16/17 04/16/17 05:30 10:07 14:26 WBC RBC Hgb Hct MCV MCH RDW Plt Count Lymph % (Auto) [place] % (Auto) Eos % (Auto) [place] # Seg Neutrophils % Seg Neuts % (Manual) Lymphocytes % (Manual) Seg Neutrophils # Seg Neutrophils # Man Lymphocytes # (Manual) APTT POC ABG pH ABG pH POC ABG pCO2 POC ABG pO2 ABG pO2 ABG HCO3 ABG Base Excess ABG Hemoglobin VBG pH Oxyhemoglobin Sodium Potassium Chloride Carbon Dioxide BUN Creatinine Glucose POC Glucose 304 H 217 H 344 H Lactic Acid Calcium AST ALT Alkaline Phosphatase CK-MB (CK-2) CK-MB (CK-2) Rel Index Total Protein Albumin TSH Urine WBC (Auto) Salicylates 04/16/17 04/17/17 04/17/17 21:25 05:12 14:19 WBC RBC Hgb Hct MCV MCH RDW Plt Count Lymph % (Auto) [place] % (Auto) Eos % (Auto) [place] # Seg Neutrophils % Seg Neuts % (Manual) Lymphocytes % (Manual) Seg Neutrophils # Seg Neutrophils # Man Lymphocytes # (Manual) APTT POC ABG pH ABG pH POC ABG pCO2 POC ABG pO2 ABG pO2 ABG HCO3 ABG Base Excess ABG Hemoglobin VBG pH Oxyhemoglobin Sodium Potassium Chloride Carbon Dioxide BUN Creatinine Glucose POC Glucose 305 H 233 H 324 H Lactic Acid Calcium AST ALT Alkaline Phosphatase CK-MB (CK-2) CK-MB (CK-2) Rel Index Total Protein Albumin TSH Urine WBC (Auto) Salicylates 04/17/17 04/18/17 04/18/17 21:42 06:21 14:08 WBC RBC Hgb Hct MCV MCH RDW Plt Count Lymph % (Auto) [place] % (Auto) Eos % (Auto) [place] # Seg Neutrophils % Seg Neuts % (Manual) Lymphocytes % (Manual) Seg Neutrophils # Seg Neutrophils # Man Lymphocytes # (Manual) APTT POC ABG pH ABG pH POC ABG pCO2 POC ABG pO2 ABG pO2 ABG HCO3 ABG Base Excess ABG Hemoglobin VBG pH Oxyhemoglobin Sodium Potassium Chloride Carbon Dioxide BUN Creatinine Glucose POC Glucose 270 H 308 H 290 H Lactic Acid Calcium AST ALT Alkaline Phosphatase CK-MB (CK-2) CK-MB (CK-2) Rel Index Total Protein Albumin TSH Urine WBC (Auto) Salicylates 04/18/17 04/19/17 04/19/17 21:50 05:20 13:59 WBC RBC Hgb Hct MCV MCH RDW Plt Count Lymph % (Auto) [place] % (Auto) Eos % (Auto) [place] # Seg Neutrophils % Seg Neuts % (Manual) Lymphocytes % (Manual) Seg Neutrophils # Seg Neutrophils # Man Lymphocytes # (Manual) APTT POC ABG pH ABG pH POC ABG pCO2 POC ABG pO2 ABG pO2 ABG HCO3 ABG Base Excess ABG Hemoglobin VBG pH Oxyhemoglobin Sodium Potassium Chloride Carbon Dioxide BUN Creatinine Glucose POC Glucose 167 H 372 H 321 H Lactic Acid Calcium AST ALT Alkaline Phosphatase CK-MB (CK-2) CK-MB (CK-2) Rel Index Total Protein Albumin TSH Urine WBC (Auto) Salicylates 04/19/17 04/20/17 04/20/17 21:16 14:18 21:34 WBC RBC Hgb Hct MCV MCH RDW Plt Count Lymph % (Auto) [place] % (Auto) Eos % (Auto) [place] # Seg Neutrophils % Seg Neuts % (Manual) Lymphocytes % (Manual) Seg Neutrophils # Seg Neutrophils # Man Lymphocytes # (Manual) APTT POC ABG pH ABG pH POC ABG pCO2 POC ABG pO2 ABG pO2 ABG HCO3 ABG Base Excess ABG Hemoglobin VBG pH Oxyhemoglobin Sodium Potassium Chloride Carbon Dioxide BUN Creatinine Glucose POC Glucose 182 H 218 H 121 H Lactic Acid Calcium AST ALT Alkaline Phosphatase CK-MB (CK-2) CK-MB (CK-2) Rel Index Total Protein Albumin TSH Urine WBC (Auto) Salicylates 04/21/17 04/21/17 04/21/17 00:08 05:16 12:41 WBC RBC Hgb Hct MCV MCH RDW Plt Count Lymph % (Auto) [place] % (Auto) Eos % (Auto) [place] # Seg Neutrophils % Seg Neuts % (Manual) Lymphocytes % (Manual) Seg Neutrophils # Seg Neutrophils # Man Lymphocytes # (Manual) APTT POC ABG pH ABG pH POC ABG pCO2 POC ABG pO2 ABG pO2 ABG HCO3 ABG Base Excess ABG Hemoglobin VBG pH Oxyhemoglobin Sodium Potassium Chloride Carbon Dioxide BUN Creatinine Glucose POC Glucose 128 H 120 H 216 H Lactic Acid Calcium AST ALT Alkaline Phosphatase CK-MB (CK-2) CK-MB (CK-2) Rel Index Total Protein Albumin TSH Urine WBC (Auto) Salicylates 04/21/17 04/22/17 04/22/17 23:40 14:12 23:38 WBC RBC Hgb Hct MCV MCH RDW Plt Count Lymph % (Auto) [place] % (Auto) Eos % (Auto) [place] # Seg Neutrophils % Seg Neuts % (Manual) Lymphocytes % (Manual) Seg Neutrophils # Seg Neutrophils # Man Lymphocytes # (Manual) APTT POC ABG pH ABG pH POC ABG pCO2 POC ABG pO2 ABG pO2 ABG HCO3 ABG Base Excess ABG Hemoglobin VBG pH Oxyhemoglobin Sodium Potassium Chloride Carbon Dioxide BUN Creatinine Glucose POC Glucose 157 H 242 H 117 H Lactic Acid Calcium AST ALT Alkaline Phosphatase CK-MB (CK-2) CK-MB (CK-2) Rel Index Total Protein Albumin TSH Urine WBC (Auto) Salicylates 04/23/17 04/23/17 04/24/17 05:18 14:01 03:24 WBC RBC Hgb Hct MCV MCH RDW Plt Count Lymph % (Auto) [place] % (Auto) Eos % (Auto) [place] # Seg Neutrophils % Seg Neuts % (Manual) Lymphocytes % (Manual) Seg Neutrophils # Seg Neutrophils # Man Lymphocytes # (Manual) APTT POC ABG pH ABG pH POC ABG pCO2 POC ABG pO2 ABG pO2 ABG HCO3 ABG Base Excess ABG Hemoglobin VBG pH Oxyhemoglobin Sodium Potassium Chloride Carbon Dioxide BUN Creatinine Glucose POC Glucose 163 H 57 L 177 H Lactic Acid Calcium AST ALT Alkaline Phosphatase CK-MB (CK-2) CK-MB (CK-2) Rel Index Total Protein Albumin TSH Urine WBC (Auto) Salicylates 04/24/17 04/24/17 04/24/17 04:00 04:00 06:33 WBC RBC Hgb 9.9 L Hct 30.0 L MCV 79 L MCH 26 L RDW 17.1 H Plt Count 625 H Lymph % (Auto) [place] % (Auto) 8.4 H Eos % (Auto) [place] # Seg Neutrophils % Seg Neuts % (Manual) Lymphocytes % (Manual) Seg Neutrophils # Seg Neutrophils # Man Lymphocytes # (Manual) APTT POC ABG pH ABG pH POC ABG pCO2 POC ABG pO2 ABG pO2 ABG HCO3 ABG Base Excess ABG Hemoglobin VBG pH Oxyhemoglobin Sodium 136 L Potassium Chloride 94.9 L Carbon Dioxide BUN 40 H Creatinine 0.6 L Glucose 176 H POC Glucose 230 H Lactic Acid Calcium AST 67 H ALT Alkaline Phosphatase 294 H CK-MB (CK-2) CK-MB (CK-2) Rel Index Total Protein 9.0 H Albumin 2.5 L TSH Urine WBC (Auto) Salicylates 04/24/17 04/25/17 04/25/17 13:50 00:22 02:55 WBC RBC 3.54 L Hgb 9.0 L Hct 27.9 L MCV 79 L MCH 26 L RDW 17.5 H Plt Count 574 H Lymph % (Auto) [place] % (Auto) 10.4 H Eos % (Auto) [place] # 1.0 H Seg Neutrophils % Seg Neuts % (Manual) Lymphocytes % (Manual) Seg Neutrophils # Seg Neutrophils # Man Lymphocytes # (Manual) APTT POC ABG pH ABG pH POC ABG pCO2 POC ABG pO2 ABG pO2 ABG HCO3 ABG Base Excess ABG Hemoglobin VBG pH Oxyhemoglobin Sodium Potassium Chloride Carbon Dioxide BUN Creatinine Glucose POC Glucose 116 H < 40 L Lactic Acid Calcium AST ALT Alkaline Phosphatase CK-MB (CK-2) CK-MB (CK-2) Rel Index Total Protein Albumin TSH Urine WBC (Auto) Salicylates 04/25/17 04/25/17 04/25/17 02:55 11:15 18:36 WBC RBC Hgb Hct MCV MCH RDW Plt Count Lymph % (Auto) [place] % (Auto) Eos % (Auto) [place] # Seg Neutrophils % Seg Neuts % (Manual) Lymphocytes % (Manual) Seg Neutrophils # Seg Neutrophils # Man Lymphocytes # (Manual) APTT POC ABG pH ABG pH POC ABG pCO2 POC ABG pO2 ABG pO2 ABG HCO3 ABG Base Excess ABG Hemoglobin VBG pH Oxyhemoglobin Sodium Potassium Chloride 96.2 L Carbon Dioxide BUN 39 H Creatinine 0.7 L Glucose 125 H POC Glucose 227 H 280 H Lactic Acid Calcium AST ALT Alkaline Phosphatase 247 H CK-MB (CK-2) CK-MB (CK-2) Rel Index Total Protein Albumin 2.7 L TSH Urine WBC (Auto) Salicylates 04/25/17 04/26/17 04/26/17 21:49 06:53 07:27 WBC RBC 3.61 L Hgb 9.1 L Hct 28.1 L MCV 78 L MCH 25 L RDW 17.4 H Plt Count 594 H Lymph % (Auto) [place] % (Auto) 9.2 H Eos % (Auto) [place] # 1.0 H Seg Neutrophils % 70.6 H Seg Neuts % (Manual) Lymphocytes % (Manual) Seg Neutrophils # Seg Neutrophils # Man Lymphocytes # (Manual) APTT POC ABG pH ABG pH POC ABG pCO2 POC ABG pO2 ABG pO2 ABG HCO3 ABG Base Excess ABG Hemoglobin VBG pH Oxyhemoglobin Sodium Potassium Chloride Carbon Dioxide BUN Creatinine Glucose POC Glucose 192 H 60 L Lactic Acid Calcium AST ALT Alkaline Phosphatase CK-MB (CK-2) CK-MB (CK-2) Rel Index Total Protein Albumin TSH Urine WBC (Auto) Salicylates 04/26/17 04/26/17 04/26/17 07:27 07:28 13:32 WBC RBC Hgb Hct MCV MCH RDW Plt Count Lymph % (Auto) [place] % (Auto) Eos % (Auto) [place] # Seg Neutrophils % Seg Neuts % (Manual) Lymphocytes % (Manual) Seg Neutrophils # Seg Neutrophils # Man Lymphocytes # (Manual) APTT POC ABG pH ABG pH POC ABG pCO2 POC ABG pO2 ABG pO2 ABG HCO3 ABG Base Excess ABG Hemoglobin VBG pH Oxyhemoglobin Sodium Potassium Chloride 95.0 L Carbon Dioxide BUN 42 H Creatinine 0.7 L Glucose 172 H POC Glucose 190 H 168 H Lactic Acid Calcium AST 56 H ALT Alkaline Phosphatase 274 H CK-MB (CK-2) CK-MB (CK-2) Rel Index Total Protein 8.9 H Albumin 2.7 L TSH Urine WBC (Auto) Salicylates 04/26/17 04/27/17 04/27/17 23:36 05:10 05:10 WBC RBC 3.49 L Hgb 8.7 L Hct 27.0 L MCV 77 L MCH 25 L RDW 17.4 H Plt Count 558 H Lymph % (Auto) [place] % (Auto) 9.6 H Eos % (Auto) [place] # Seg Neutrophils % Seg Neuts % (Manual) Lymphocytes % (Manual) Seg Neutrophils # Seg Neutrophils # Man Lymphocytes # (Manual) APTT POC ABG pH ABG pH POC ABG pCO2 POC ABG pO2 ABG pO2 ABG HCO3 ABG Base Excess ABG Hemoglobin VBG pH Oxyhemoglobin Sodium 133 L Potassium Chloride 93.5 L Carbon Dioxide BUN 40 H Creatinine 0.7 L Glucose 179 H POC Glucose 204 H Lactic Acid Calcium AST 73 H ALT 58 H Alkaline Phosphatase 294 H CK-MB (CK-2) CK-MB (CK-2) Rel Index Total Protein 8.7 H Albumin 2.4 L TSH Urine WBC (Auto) Salicylates 04/27/17 04/27/17 04/27/17 05:45 14:08 23:46 WBC RBC Hgb Hct MCV MCH RDW Plt Count Lymph % (Auto) [place] % (Auto) Eos % (Auto) [place] # Seg Neutrophils % Seg Neuts % (Manual) Lymphocytes % (Manual) Seg Neutrophils # Seg Neutrophils # Man Lymphocytes # (Manual) APTT POC ABG pH ABG pH POC ABG pCO2 POC ABG pO2 ABG pO2 ABG HCO3 ABG Base Excess ABG Hemoglobin VBG pH Oxyhemoglobin Sodium Potassium Chloride Carbon Dioxide BUN Creatinine Glucose POC Glucose 200 H 206 H 207 H Lactic Acid Calcium AST ALT Alkaline Phosphatase CK-MB (CK-2) CK-MB (CK-2) Rel Index Total Protein Albumin TSH Urine WBC (Auto) Salicylates 04/28/17 04/28/17 04/28/17 04:48 04:53 05:10 WBC RBC 3.48 L Hgb 8.8 L Hct 26.7 L MCV 77 L MCH 25 L RDW 17.0 H Plt Count 515 H Lymph % (Auto) [place] % (Auto) 8.4 H Eos % (Auto) [place] # Seg Neutrophils % 70.6 H Seg Neuts % (Manual) Lymphocytes % (Manual) Seg Neutrophils # Seg Neutrophils # Man Lymphocytes # (Manual) APTT POC ABG pH ABG pH POC ABG pCO2 POC ABG pO2 ABG pO2 ABG HCO3 ABG Base Excess ABG Hemoglobin VBG pH Oxyhemoglobin Sodium Potassium Chloride Carbon Dioxide BUN Creatinine Glucose POC Glucose 43 L 41 L Lactic Acid Calcium AST ALT Alkaline Phosphatase CK-MB (CK-2) CK-MB (CK-2) Rel Index Total Protein Albumin TSH Urine WBC (Auto) Salicylates 04/28/17 04/28/17 04/28/17 05:10 14:06 22:07 WBC RBC Hgb Hct MCV MCH RDW Plt Count Lymph % (Auto) [place] % (Auto) Eos % (Auto) [place] # Seg Neutrophils % Seg Neuts % (Manual) Lymphocytes % (Manual) Seg Neutrophils # Seg Neutrophils # Man Lymphocytes # (Manual) APTT POC ABG pH ABG pH POC ABG pCO2 POC ABG pO2 ABG pO2 ABG HCO3 ABG Base Excess ABG Hemoglobin VBG pH Oxyhemoglobin Sodium 136 L Potassium Chloride 95.2 L Carbon Dioxide BUN 42 H Creatinine Glucose 63 L POC Glucose 303 H 227 H Lactic Acid Calcium AST 45 H ALT Alkaline Phosphatase 271 H CK-MB (CK-2) CK-MB (CK-2) Rel Index Total Protein 8.9 H Albumin 2.5 L TSH Urine WBC (Auto) Salicylates 04/29/17 04/29/17 04/29/17 06:40 14:11 21:35 WBC RBC Hgb Hct MCV MCH RDW Plt Count Lymph % (Auto) [place] % (Auto) Eos % (Auto) [place] # Seg Neutrophils % Seg Neuts % (Manual) Lymphocytes % (Manual) Seg Neutrophils # Seg Neutrophils # Man Lymphocytes # (Manual) APTT POC ABG pH ABG pH POC ABG pCO2 POC ABG pO2 ABG pO2 ABG HCO3 ABG Base Excess ABG Hemoglobin VBG pH Oxyhemoglobin Sodium Potassium Chloride Carbon Dioxide BUN Creatinine Glucose POC Glucose 254 H 244 H 184 H Lactic Acid Calcium AST ALT Alkaline Phosphatase CK-MB (CK-2) CK-MB (CK-2) Rel Index Total Protein Albumin TSH Urine WBC (Auto) Salicylates 04/30/17 04/30/17 04/30/17 05:17 14:03 22:08 WBC RBC Hgb Hct MCV MCH RDW Plt Count Lymph % (Auto) [place] % (Auto) Eos % (Auto) [place] # Seg Neutrophils % Seg Neuts % (Manual) Lymphocytes % (Manual) Seg Neutrophils # Seg Neutrophils # Man Lymphocytes # (Manual) APTT POC ABG pH ABG pH POC ABG pCO2 POC ABG pO2 ABG pO2 ABG HCO3 ABG Base Excess ABG Hemoglobin VBG pH Oxyhemoglobin Sodium Potassium Chloride Carbon Dioxide BUN Creatinine Glucose POC Glucose 173 H 182 H 247 H Lactic Acid Calcium AST ALT Alkaline Phosphatase CK-MB (CK-2) CK-MB (CK-2) Rel Index Total Protein Albumin TSH Urine WBC (Auto) Salicylates 05/01/17 05/01/17 05/01/17 05:04 15:37 18:50 WBC RBC Hgb Hct MCV MCH RDW Plt Count Lymph % (Auto) [place] % (Auto) Eos % (Auto) [place] # Seg Neutrophils % Seg Neuts % (Manual) Lymphocytes % (Manual) Seg Neutrophils # Seg Neutrophils # Man Lymphocytes # (Manual) APTT POC ABG pH ABG pH POC ABG pCO2 POC ABG pO2 ABG pO2 ABG HCO3 ABG Base Excess ABG Hemoglobin VBG pH Oxyhemoglobin Sodium Potassium Chloride Carbon Dioxide BUN Creatinine Glucose POC Glucose 335 H 68 L 144 H Lactic Acid Calcium AST ALT Alkaline Phosphatase CK-MB (CK-2) CK-MB (CK-2) Rel Index Total Protein Albumin TSH Urine WBC (Auto) Salicylates 05/01/17 05/02/17 05/02/17 22:13 04:59 14:06 WBC RBC Hgb Hct MCV MCH RDW Plt Count Lymph % (Auto) [place] % (Auto) Eos % (Auto) [place] # Seg Neutrophils % Seg Neuts % (Manual) Lymphocytes % (Manual) Seg Neutrophils # Seg Neutrophils # Man Lymphocytes # (Manual) APTT POC ABG pH ABG pH POC ABG pCO2 POC ABG pO2 ABG pO2 ABG HCO3 ABG Base Excess ABG Hemoglobin VBG pH Oxyhemoglobin Sodium Potassium Chloride Carbon Dioxide BUN Creatinine Glucose POC Glucose 192 H 225 H 165 H Lactic Acid Calcium AST ALT Alkaline Phosphatase CK-MB (CK-2) CK-MB (CK-2) Rel Index Total Protein Albumin TSH Urine WBC (Auto) Salicylates 05/02/17 05/03/17 05/03/17 21:20 05:16 16:56 WBC RBC Hgb Hct MCV MCH RDW Plt Count Lymph % (Auto) [place] % (Auto) Eos % (Auto) [place] # Seg Neutrophils % Seg Neuts % (Manual) Lymphocytes % (Manual) Seg Neutrophils # Seg Neutrophils # Man Lymphocytes # (Manual) APTT POC ABG pH ABG pH POC ABG pCO2 POC ABG pO2 ABG pO2 ABG HCO3 ABG Base Excess ABG Hemoglobin VBG pH Oxyhemoglobin Sodium Potassium Chloride Carbon Dioxide BUN Creatinine Glucose POC Glucose 181 H 323 H 125 H Lactic Acid Calcium AST ALT Alkaline Phosphatase CK-MB (CK-2) CK-MB (CK-2) Rel Index Total Protein Albumin TSH Urine WBC (Auto) Salicylates 05/03/17 05/04/17 05/04/17 21:46 05:01 14:24 WBC RBC Hgb Hct MCV MCH RDW Plt Count Lymph % (Auto) [place] % (Auto) Eos % (Auto) [place] # Seg Neutrophils % Seg Neuts % (Manual) Lymphocytes % (Manual) Seg Neutrophils # Seg Neutrophils # Man Lymphocytes # (Manual) APTT POC ABG pH ABG pH POC ABG pCO2 POC ABG pO2 ABG pO2 ABG HCO3 ABG Base Excess ABG Hemoglobin VBG pH Oxyhemoglobin Sodium Potassium Chloride Carbon Dioxide BUN Creatinine Glucose POC Glucose 210 H 360 H 219 H Lactic Acid Calcium AST ALT Alkaline Phosphatase CK-MB (CK-2) CK-MB (CK-2) Rel Index Total Protein Albumin TSH Urine WBC (Auto) Salicylates 05/04/17 05/05/17 05/05/17 21:39 01:58 05:13 WBC RBC Hgb Hct MCV MCH RDW Plt Count Lymph % (Auto) [place] % (Auto) Eos % (Auto) [place] # Seg Neutrophils % Seg Neuts % (Manual) Lymphocytes % (Manual) Seg Neutrophils # Seg Neutrophils # Man Lymphocytes # (Manual) APTT POC ABG pH ABG pH POC ABG pCO2 POC ABG pO2 ABG pO2 ABG HCO3 ABG Base Excess ABG Hemoglobin VBG pH Oxyhemoglobin Sodium Potassium Chloride Carbon Dioxide BUN Creatinine Glucose POC Glucose 126 H 175 H 267 H Lactic Acid Calcium AST ALT Alkaline Phosphatase CK-MB (CK-2) CK-MB (CK-2) Rel Index Total Protein Albumin TSH Urine WBC (Auto) Salicylates 05/05/17 05/05/17 05/05/17 12:19 14:11 21:18 WBC RBC Hgb Hct MCV MCH RDW Plt Count Lymph % (Auto) [place] % (Auto) Eos % (Auto) [place] # Seg Neutrophils % Seg Neuts % (Manual) Lymphocytes % (Manual) Seg Neutrophils # Seg Neutrophils # Man Lymphocytes # (Manual) APTT POC ABG pH ABG pH POC ABG pCO2 POC ABG pO2 ABG pO2 ABG HCO3 ABG Base Excess ABG Hemoglobin VBG pH Oxyhemoglobin Sodium Potassium Chloride Carbon Dioxide BUN Creatinine Glucose POC Glucose 221 H 205 H 156 H Lactic Acid Calcium AST ALT Alkaline Phosphatase CK-MB (CK-2) CK-MB (CK-2) Rel Index Total Protein Albumin TSH Urine WBC (Auto) Salicylates 05/06/17 05/06/17 05/06/17 06:02 15:26 21:43 WBC RBC Hgb Hct MCV MCH RDW Plt Count Lymph % (Auto) [place] % (Auto) Eos % (Auto) [place] # Seg Neutrophils % Seg Neuts % (Manual) Lymphocytes % (Manual) Seg Neutrophils # Seg Neutrophils # Man Lymphocytes # (Manual) APTT POC ABG pH ABG pH POC ABG pCO2 POC ABG pO2 ABG pO2 ABG HCO3 ABG Base Excess ABG Hemoglobin VBG pH Oxyhemoglobin Sodium Potassium Chloride Carbon Dioxide BUN Creatinine Glucose POC Glucose 263 H 143 H 145 H Lactic Acid Calcium AST ALT Alkaline Phosphatase CK-MB (CK-2) CK-MB (CK-2) Rel Index Total Protein Albumin TSH Urine WBC (Auto) Salicylates 05/07/17 05/07/17 05/07/17 05:52 21:46 21:49 WBC RBC Hgb Hct MCV MCH RDW Plt Count Lymph % (Auto) [place] % (Auto) Eos % (Auto) [place] # Seg Neutrophils % Seg Neuts % (Manual) Lymphocytes % (Manual) Seg Neutrophils # Seg Neutrophils # Man Lymphocytes # (Manual) APTT POC ABG pH ABG pH POC ABG pCO2 POC ABG pO2 ABG pO2 ABG HCO3 ABG Base Excess ABG Hemoglobin VBG pH Oxyhemoglobin Sodium Potassium Chloride Carbon Dioxide BUN Creatinine Glucose POC Glucose 242 H < 40 L < 40 L Lactic Acid Calcium AST ALT Alkaline Phosphatase CK-MB (CK-2) CK-MB (CK-2) Rel Index Total Protein Albumin TSH Urine WBC (Auto) Salicylates 05/07/17 05/08/17 22:41 06:14 WBC RBC Hgb Hct MCV MCH RDW Plt Count Lymph % (Auto) [place] % (Auto) Eos % (Auto) [place] # Seg Neutrophils % Seg Neuts % (Manual) Lymphocytes % (Manual) Seg Neutrophils # Seg Neutrophils # Man Lymphocytes # (Manual) APTT POC ABG pH ABG pH POC ABG pCO2 POC ABG pO2 ABG pO2 ABG HCO3 ABG Base Excess ABG Hemoglobin VBG pH Oxyhemoglobin Sodium Potassium Chloride Carbon Dioxide BUN Creatinine Glucose POC Glucose 183 H 329 H Lactic Acid Calcium AST ALT Alkaline Phosphatase CK-MB (CK-2) CK-MB (CK-2) Rel Index Total Protein Albumin TSH Urine WBC (Auto) Salicylates
--- NOTE | 2017-05-08 15:39 | Progress Note ---
Assessment and Plan Hypoglycemic brain injury Persistent vegetative state Metabolic encephalopathy Hypoglycemia/hypothermia, resolved Acute respiratory failure on mechanical ventilator dependent UTI with klebsiella, treated ( Cx + on 01/28), then with ESBL likely colonization hyponatremia, stable Hypothyroidism IDDM Hypertension low grade Fever, intermittently spikes temp - Cont supportive care and current medication. Monitor vitals, repeat cx on - no growth - increased dose of long acting insulin to 15 unit - Patient is DNR- needs guardianship from the state to give consent for further management, as has no family to give consent. Brief History: 51 YO Male with CKD,HTN, DM presents to ED after found down and unresponsive by his neighbor, who subsequently called EMS. Upon arrival, patient found unresponsive on the floor with a serum glucose of 21, patient has a known history of alcohol abuse and delirium tremens. The patient was administered D5 approximate 500 mls during transport without change in mental status/level of consciousness. Pt seen and evaluated in ED was was found to be unable to protect his airway. Pt intubated and placed on vent support. Pt found to have evidence of hypothyroidism. He was started on Synthroid. He has since been in the ICU. family services manager try to locate family, even spoke to the family who he lives with. They themselves were unaware of any family members. After ethics committee meeting on the patient. The decision was made to make him DO NOT RESUSCITATE and to transfer him to hospice. Given his very poor prognosis and poor likelihood of recovery. It was decided that was not his best interest to get trach and PEG. Therefore he'll be transferred to the hospice intubated. Now Awaiting on court ordered /state guardianship. Hospitalist Physical - Physical exam Narrative exam: General: comatose HEENT: Moist mucous membranes, , no lymphadenopathy Neck: supple Cardiac: S1-S2 heard Lungs: mechnical ventilated breath sounds Abdomen: soft , nontender, nondistended, bowel sounds positive Extremities: no edema clubbing or cyanosis Skin: no rash or lesions Neurologic: opens eyes, withdraws from painful stimuli, does not follow commend Subjective Date of service: 05/08/17 Principal diagnosis: Acute respiratory failure,encephalopathy Interval history: patient remains comatose, no movement of extremities afebrile o/n, BG dropped to 40s, reduced insulin dose Objective - Constitutional Vitals: Vital Signs - 12hr 05/08/17 05/08/17 05/08/17 04:00 04:51 08:00 Temperature 97.5 F L 97.8 F Pulse Rate 91 H O2 Sat by Pulse 99 Oximetry 05/08/17 05/08/17 11:38 11:55 Temperature 98.5 F Pulse Rate O2 Sat by Pulse 99 Oximetry - Labs CBC & Chem 7: 04/28/17 05:10 04/28/17 05:10 Labs: Abnormal lab results 05/07/17 05/07/17 05/07/17 Range/Units 21:46 21:49 22:41 POC Glucose < 40 L < 40 L 183 H (70-105) 05/08/17 Range/Units 06:14 POC Glucose 329 H (70-105)
[2017-05-09] MEDS: HumuLIN R SUB-Q SCH ×5 (00:19→22:25)
[2017-05-09] MEDS: HEPARIN SUB-Q SCH ×3 (00:24→22:26)
[2017-05-09] MEDS: PEPCID PO SCH ×3 (00:24→22:39)
[2017-05-09] MEDS: SYNTHROID PO SCH (06:29)
[2017-05-09] MEDS: LEVEMIR (NF) SUB-Q SCH (09:35)
--- NOTE | 2017-05-09 16:43 | Progress Note ---
Assessment and Plan Hypoglycemic brain injury Persistent vegetative state Metabolic encephalopathy Hypoglycemia/hypothermia, resolved Acute respiratory failure on mechanical ventilator dependent UTI with klebsiella, treated ( Cx + on 01/28), then with ESBL likely colonization hyponatremia, stable Hypothyroidism IDDM Hypertension low grade Fever, intermittently spikes temp - Cont supportive care and current medication. Monitor vitals, repeat cx on - no growth - increased dose of long acting insulin to 15 unit - Patient is DNR- needs guardianship from the state to give consent for further management, as has no family to give consent. Brief History: 51 YO Male with CKD,HTN, DM presents to ED after found down and unresponsive by his neighbor, who subsequently called EMS. Upon arrival, patient found unresponsive on the floor with a serum glucose of 21, patient has a known history of alcohol abuse and delirium tremens. The patient was administered D5 approximate 500 mls during transport without change in mental status/level of consciousness. Pt seen and evaluated in ED was was found to be unable to protect his airway. Pt intubated and placed on vent support. Pt found to have evidence of hypothyroidism. He was started on Synthroid. He has since been in the ICU. business services vice president try to locate family, even spoke to the family who he lives with. They themselves were unaware of any family members. After ethics committee meeting on the patient. The decision was made to make him DO NOT RESUSCITATE and to transfer him to hospice. Given his very poor prognosis and poor likelihood of recovery. It was decided that was not his best interest to get trach and PEG. Therefore he'll be transferred to the hospice intubated. Now Awaiting on court ordered /state guardianship. Hospitalist Physical - Physical exam Narrative exam: General: comatose HEENT: Moist mucous membranes, , no lymphadenopathy Neck: supple Cardiac: S1-S2 heard Lungs: mechnical ventilated breath sounds Abdomen: soft , nontender, nondistended, bowel sounds positive Extremities: no edema clubbing or cyanosis Skin: no rash or lesions Neurologic: opens eyes, withdraws from painful stimuli, does not follow commend Subjective Date of service: 05/09/17 Principal diagnosis: Acute respiratory failure,encephalopathy Interval history: afebrile o/n, BG stable Objective - Constitutional Vitals: Vital Signs - 12hr 05/09/17 05/09/17 05/09/17 05:00 06:00 07:00 Temperature Pulse Rate 74 75 70 Pulse Rate [ From Monitor] Respiratory 13 17 12 Rate Blood Pressure 100/67 100/67 100/67 O2 Sat by Pulse 100 100 100 Oximetry 05/09/17 05/09/17 05/09/17 08:00 09:00 09:40 Temperature 97.9 F Pulse Rate 72 71 Pulse Rate [ 72 From Monitor] Respiratory 14 13 Rate Blood Pressure 113/68 113/68 O2 Sat by Pulse 100 100 Oximetry 05/09/17 05/09/17 05/09/17 10:00 10:01 11:00 Temperature Pulse Rate 74 74 71 Pulse Rate [ From Monitor] Respiratory 12 15 Rate Blood Pressure 113/68 113/68 113/68 O2 Sat by Pulse 100 100 100 Oximetry 05/09/17 05/09/17 05/09/17 12:00 13:00 13:53 Temperature 97.8 F Pulse Rate 74 73 72 Pulse Rate [ From Monitor] Respiratory 14 17 Rate Blood Pressure 117/71 117/71 O2 Sat by Pulse 100 100 100 Oximetry 05/09/17 05/09/17 14:00 16:00 Temperature 97.7 F Pulse Rate 75 Pulse Rate [ From Monitor] Respiratory 17 Rate Blood Pressure 117/71 O2 Sat by Pulse 100 Oximetry - Labs CBC & Chem 7: 04/28/17 05:10 04/28/17 05:10 Labs: Abnormal lab results 05/09/17 05/09/17 05/09/17 Range/Units 00:02 06:08 14:06 POC Glucose 130 H 241 H 251 H (70-105)
[2017-05-10] MEDS: SYNTHROID PO SCH (06:12)
[2017-05-10] MEDS: HumuLIN R SUB-Q SCH ×3 (06:12→21:51)
--- NOTE | 2017-05-10 09:16 | Progress Note ---
Assessment and Plan 51 y/o male found down, concern for sepsis and now encephalopathic requiring mechanical ventilation. 1. continue supportive care 2. 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 I am aware that he is an AND but trach will not fix this problem and is not in my professional opinion the right thing to do for this patient. Most likely he will never be weaned from the vent and will remain in a persistent vegatative state. 3. Overall prognosis continues to be poor. 4. Will not check labs 5. Vitals should be qshift 6. This patient's possibility of awakening from this persistent vegatative is unlikely. The current status is that there has been paper work filed to obtain guardianship so that end of life decisions can be made. Supportive care is reasonable but checking daily labs and doing other invasive things to this patient I do not feel is morally and ethically appropriate. 7. Currently patient does not have IV access and is not requiring any medical therapy. Will not place another one at this time. 8. Per CM, went to court 05/03/17 for Guardianship. Will follow up with [facility] about the results of this. Subjective Date of service: 05/10/17 Principal diagnosis: Acute respiratory failure,encephalopathy Interval history: No acute events. Mental status is unchanged. No family still found. Awaiting results of court hearing from last week. Objective Vital Signs - 12hr 05/09/17 05/09/17 05/09/17 21:30 22:00 22:22 Temperature Pulse Rate 75 72 75 Pulse Rate [ From Monitor] Respiratory 15 14 Rate Blood Pressure 113/64 113/64 O2 Sat by Pulse 99 100 Oximetry 05/09/17 05/09/17 05/10/17 23:00 23:13 00:00 Temperature 97.9 F Pulse Rate 76 77 Pulse Rate [ From Monitor] Respiratory 12 14 Rate Blood Pressure 113/64 115/69 O2 Sat by Pulse 99 100 Oximetry 05/10/17 05/10/17 05/10/17 00:37 01:00 02:00 Temperature Pulse Rate 79 78 79 Pulse Rate [ From Monitor] Respiratory 13 14 Rate Blood Pressure 115/69 115/69 O2 Sat by Pulse 99 100 100 Oximetry 05/10/17 05/10/17 05/10/17 03:00 03:50 04:00 Temperature 98.9 F Pulse Rate 76 90 Pulse Rate [ From Monitor] Respiratory 15 16 Rate Blood Pressure 115/69 115/69 O2 Sat by Pulse 99 100 Oximetry 05/10/17 05/10/17 05/10/17 04:16 05:00 06:00 Temperature Pulse Rate 81 89 90 Pulse Rate [ From Monitor] Respiratory 17 12 Rate Blood Pressure 113/69 126/74 126/74 O2 Sat by Pulse 100 97 99 Oximetry 05/10/17 05/10/17 07:00 08:00 Temperature 97.8 F Pulse Rate 87 84 Pulse Rate [ 84 From Monitor] Respiratory 16 15 Rate Blood Pressure 126/74 114/69 O2 Sat by Pulse 100 97 Oximetry Constitutional: no acute distress, alert, other (on vent) Eyes: non-icteric ENT: oropharynx moist, other (ETT in position) Neck: supple Effort: normal Ascultation: Bilateral: clear, diminished breath sounds Cardiovascular: regular rate and rhythm (no mrg) Gastrointestinal: normoactive bowel sounds, soft, non-tender, non-distended Integumentary: normal Extremities: no cyanosis, no edema, pink and warm Neurologic: pupils equal and round, other (not following commands,mild response to pain) Psychiatric: other (unable to obtain) CBC and BMP: 04/28/17 05:10 04/28/17 05:10 ABG, PT/INR, D-dimer: ABG POC ABG pH 7.442 (7.35-7.45) 01/31/17 18:55 ABG pH 7.420 pH Units (7.350-7.450) 01/17/17 04:35 POC ABG pCO2 32.8 (35-45) L 01/31/17 18:55 ABG pCO2 34.5 mm Hg 01/17/17 04:35 POC ABG pO2 82 (80-105) 01/31/17 18:55 ABG pO2 160.3 mm Hg (80.0-90.0) H 01/17/17 04:35 POC ABG HCO3 22.4 01/31/17 18:55 POC ABG Total CO2 23 01/31/17 18:55 POC ABG O2 Sat 97 01/31/17 18:55 ABG O2 Saturation 99.0 % (95.0-99.0) 01/17/17 04:35 PT/INR, D-dimer PT 14.1 Sec. (12.2-14.9) 01/17/17 04:10 INR 1.04 (0.87-1.13) 01/17/17 04:10 Abnormal lab findings: Abnormal Labs 01/09/17 01/09/17 01/09/17 10:16 10:16 10:16 WBC RBC Hgb 9.7 L Hct 28.4 L MCV 76 L MCH 26 L RDW 17.2 H Plt Count 448 H Lymph % (Auto) [place] % (Auto) Eos % (Auto) [place] # Seg Neutrophils % 79.5 H Seg Neuts % (Manual) Lymphocytes % (Manual) Seg Neutrophils # Seg Neutrophils # Man Lymphocytes # (Manual) APTT 39.6 H POC ABG pH ABG pH POC ABG pCO2 POC ABG pO2 ABG pO2 ABG HCO3 ABG Base Excess ABG Hemoglobin VBG pH Oxyhemoglobin Sodium 132 L Potassium Chloride 96.7 L Carbon Dioxide 21 L BUN 34 H Creatinine Glucose POC Glucose Lactic Acid Calcium 8.3 L AST ALT Alkaline Phosphatase 151 H CK-MB (CK-2) 7.1 H CK-MB (CK-2) Rel Index 5.2 H Total Protein Albumin 3.3 L TSH Urine WBC (Auto) Salicylates 01/09/17 01/09/17 01/09/17 10:16 10:16 10:16 WBC RBC Hgb Hct MCV MCH RDW Plt Count Lymph % (Auto) [place] % (Auto) Eos % (Auto) [place] # Seg Neutrophils % Seg Neuts % (Manual) Lymphocytes % (Manual) Seg Neutrophils # Seg Neutrophils # Man Lymphocytes # (Manual) APTT POC ABG pH ABG pH POC ABG pCO2 POC ABG pO2 ABG pO2 ABG HCO3 ABG Base Excess ABG Hemoglobin VBG pH 7.284 L Oxyhemoglobin Sodium Potassium Chloride Carbon Dioxide BUN Creatinine Glucose POC Glucose Lactic Acid Calcium AST ALT Alkaline Phosphatase CK-MB (CK-2) CK-MB (CK-2) Rel Index Total Protein Albumin TSH 52.800 H Urine WBC (Auto) Salicylates < 0.3 L 01/09/17 01/09/17 01/09/17 10:23 11:14 12:49 WBC RBC Hgb Hct MCV MCH RDW Plt Count Lymph % (Auto) [place] % (Auto) Eos % (Auto) [place] # Seg Neutrophils % Seg Neuts % (Manual) Lymphocytes % (Manual) Seg Neutrophils # Seg Neutrophils # Man Lymphocytes # (Manual) APTT POC ABG pH ABG pH POC ABG pCO2 POC ABG pO2 643 H ABG pO2 ABG HCO3 ABG Base Excess ABG Hemoglobin VBG pH Oxyhemoglobin Sodium Potassium Chloride Carbon Dioxide BUN Creatinine Glucose POC Glucose < 40 L Lactic Acid Calcium AST ALT Alkaline Phosphatase CK-MB (CK-2) CK-MB (CK-2) Rel Index Total Protein Albumin TSH Urine WBC (Auto) 61.0 H Salicylates 01/09/17 01/09/17 01/09/17 13:13 14:21 15:09 WBC RBC Hgb Hct MCV MCH RDW Plt Count Lymph % (Auto) [place] % (Auto) Eos % (Auto) [place] # Seg Neutrophils % Seg Neuts % (Manual) Lymphocytes % (Manual) Seg Neutrophils # Seg Neutrophils # Man Lymphocytes # (Manual) APTT POC ABG pH ABG pH POC ABG pCO2 POC ABG pO2 ABG pO2 ABG HCO3 ABG Base Excess ABG Hemoglobin VBG pH Oxyhemoglobin Sodium Potassium Chloride Carbon Dioxide BUN Creatinine Glucose POC Glucose 128 H 65 L 120 H Lactic Acid Calcium AST ALT Alkaline Phosphatase CK-MB (CK-2) CK-MB (CK-2) Rel Index Total Protein Albumin TSH Urine WBC (Auto) Salicylates 01/09/17 01/09/17 01/10/17 16:28 17:14 04:30 WBC 24.1 H RBC 3.38 L Hgb 8.5 L Hct 26.0 L MCV 77 L MCH 25 L RDW 17.9 H Plt Count 474 H Lymph % (Auto) [place] % (Auto) Eos % (Auto) [place] # Seg Neutrophils % Seg Neuts % (Manual) 88.0 H Lymphocytes % (Manual) 4.0 L Seg Neutrophils # Seg Neutrophils # Man 21.2 H Lymphocytes # (Manual) 1.0 L APTT POC ABG pH ABG pH POC ABG pCO2 POC ABG pO2 ABG pO2 ABG HCO3 ABG Base Excess ABG Hemoglobin VBG pH Oxyhemoglobin Sodium Potassium Chloride Carbon Dioxide BUN Creatinine Glucose POC Glucose 44 L 112 H Lactic Acid Calcium AST ALT Alkaline Phosphatase CK-MB (CK-2) CK-MB (CK-2) Rel Index Total Protein Albumin TSH Urine WBC (Auto) Salicylates 01/10/17 01/10/17 01/10/17 04:30 05:41 05:45 WBC RBC Hgb Hct MCV MCH RDW Plt Count Lymph % (Auto) [place] % (Auto) Eos % (Auto) [place] # Seg Neutrophils % Seg Neuts % (Manual) Lymphocytes % (Manual) Seg Neutrophils # Seg Neutrophils # Man Lymphocytes # (Manual) APTT POC ABG pH ABG pH POC ABG pCO2 26.6 L POC ABG pO2 207 H ABG pO2 ABG HCO3 ABG Base Excess ABG Hemoglobin VBG pH Oxyhemoglobin Sodium Potassium Chloride Carbon Dioxide 17 L BUN 27 H Creatinine Glucose POC Glucose 68 L Lactic Acid Calcium 7.5 L AST ALT Alkaline Phosphatase CK-MB (CK-2) CK-MB (CK-2) Rel Index Total Protein Albumin TSH Urine WBC (Auto) Salicylates 01/10/17 01/10/17 01/10/17 07:47 10:50 13:41 WBC RBC Hgb Hct MCV MCH RDW Plt Count Lymph % (Auto) [place] % (Auto) Eos % (Auto) [place] # Seg Neutrophils % Seg Neuts % (Manual) Lymphocytes % (Manual) Seg Neutrophils # Seg Neutrophils # Man Lymphocytes # (Manual) APTT POC ABG pH ABG pH POC ABG pCO2 POC ABG pO2 ABG pO2 ABG HCO3 ABG Base Excess ABG Hemoglobin VBG pH Oxyhemoglobin Sodium Potassium Chloride Carbon Dioxide BUN Creatinine Glucose POC Glucose 148 H 165 H 114 H Lactic Acid Calcium AST ALT Alkaline Phosphatase CK-MB (CK-2) CK-MB (CK-2) Rel Index Total Protein Albumin TSH Urine WBC (Auto) Salicylates 01/10/17 01/10/17 01/10/17 20:20 21:39 23:24 WBC RBC Hgb Hct MCV MCH RDW Plt Count Lymph % (Auto) [place] % (Auto) Eos % (Auto) [place] # Seg Neutrophils % Seg Neuts % (Manual) Lymphocytes % (Manual) Seg Neutrophils # Seg Neutrophils # Man Lymphocytes # (Manual) APTT POC ABG pH ABG pH POC ABG pCO2 POC ABG pO2 ABG pO2 ABG HCO3 ABG Base Excess ABG Hemoglobin VBG pH Oxyhemoglobin Sodium Potassium Chloride Carbon Dioxide BUN Creatinine Glucose POC Glucose 150 H 175 H 155 H Lactic Acid Calcium AST ALT Alkaline Phosphatase CK-MB (CK-2) CK-MB (CK-2) Rel Index Total Protein Albumin TSH Urine WBC (Auto) Salicylates 01/11/17 01/11/17 01/11/17 00:19 04:06 05:20 WBC 15.2 H RBC 3.40 L Hgb 8.9 L Hct 26.3 L MCV 78 L MCH 26 L RDW 18.6 H Plt Count 462 H Lymph % (Auto) 13.2 L [place] % (Auto) Eos % (Auto) [place] # Seg Neutrophils % 80.8 H Seg Neuts % (Manual) Lymphocytes % (Manual) Seg Neutrophils # 12.3 H Seg Neutrophils # Man Lymphocytes # (Manual) APTT POC ABG pH 7.463 H ABG pH POC ABG pCO2 26.2 L POC ABG pO2 185 H ABG pO2 ABG HCO3 ABG Base Excess ABG Hemoglobin VBG pH Oxyhemoglobin Sodium Potassium Chloride Carbon Dioxide BUN Creatinine Glucose POC Glucose 163 H Lactic Acid Calcium AST ALT Alkaline Phosphatase CK-MB (CK-2) CK-MB (CK-2) Rel Index Total Protein Albumin TSH Urine WBC (Auto) Salicylates 01/11/17 01/11/17 01/11/17 05:20 06:21 07:57 WBC RBC Hgb Hct MCV MCH RDW Plt Count Lymph % (Auto) [place] % (Auto) Eos % (Auto) [place] # Seg Neutrophils % Seg Neuts % (Manual) Lymphocytes % (Manual) Seg Neutrophils # Seg Neutrophils # Man Lymphocytes # (Manual) APTT POC ABG pH ABG pH POC ABG pCO2 POC ABG pO2 ABG pO2 ABG HCO3 ABG Base Excess ABG Hemoglobin VBG pH Oxyhemoglobin Sodium Potassium 3.4 L Chloride 111.5 H Carbon Dioxide 17 L BUN Creatinine Glucose 147 H POC Glucose 139 H 188 H Lactic Acid Calcium 8.0 L AST ALT Alkaline Phosphatase CK-MB (CK-2) CK-MB (CK-2) Rel Index Total Protein Albumin TSH Urine WBC (Auto) Salicylates 01/11/17 01/11/17 01/11/17 11:46 16:50 23:15 WBC RBC Hgb Hct MCV MCH RDW Plt Count Lymph % (Auto) [place] % (Auto) Eos % (Auto) [place] # Seg Neutrophils % Seg Neuts % (Manual) Lymphocytes % (Manual) Seg Neutrophils # Seg Neutrophils # Man Lymphocytes # (Manual) APTT POC ABG pH ABG pH POC ABG pCO2 POC ABG pO2 ABG pO2 ABG HCO3 ABG Base Excess ABG Hemoglobin VBG pH Oxyhemoglobin Sodium Potassium Chloride Carbon Dioxide BUN Creatinine Glucose POC Glucose 199 H 235 H 155 H Lactic Acid Calcium AST ALT Alkaline Phosphatase CK-MB (CK-2) CK-MB (CK-2) Rel Index Total Protein Albumin TSH Urine WBC (Auto) Salicylates 01/12/17 01/12/17 01/12/17 05:02 06:56 14:50 WBC RBC Hgb Hct MCV MCH RDW Plt Count Lymph % (Auto) [place] % (Auto) Eos % (Auto) [place] # Seg Neutrophils % Seg Neuts % (Manual) Lymphocytes % (Manual) Seg Neutrophils # Seg Neutrophils # Man Lymphocytes # (Manual) APTT POC ABG pH ABG pH POC ABG pCO2 28.0 L POC ABG pO2 178 H ABG pO2 ABG HCO3 ABG Base Excess ABG Hemoglobin VBG pH Oxyhemoglobin Sodium Potassium Chloride Carbon Dioxide BUN Creatinine Glucose POC Glucose 119 H 164 H Lactic Acid Calcium AST ALT Alkaline Phosphatase CK-MB (CK-2) CK-MB (CK-2) Rel Index Total Protein Albumin TSH Urine WBC (Auto) Salicylates 01/13/17 01/13/17 01/13/17 03:37 03:37 04:26 WBC RBC 3.61 L Hgb 9.3 L Hct 28.0 L MCV 78 L MCH 26 L RDW 18.2 H Plt Count Lymph % (Auto) [place] % (Auto) Eos % (Auto) [place] # Seg Neutrophils % Seg Neuts % (Manual) Lymphocytes % (Manual) Seg Neutrophils # Seg Neutrophils # Man Lymphocytes # (Manual) APTT POC ABG pH 7.485 H ABG pH POC ABG pCO2 25.4 L POC ABG pO2 73 L ABG pO2 ABG HCO3 ABG Base Excess ABG Hemoglobin VBG pH Oxyhemoglobin Sodium Potassium Chloride 112.4 H Carbon Dioxide 19 L BUN Creatinine Glucose 118 H POC Glucose Lactic Acid Calcium 8.0 L AST ALT Alkaline Phosphatase CK-MB (CK-2) CK-MB (CK-2) Rel Index Total Protein Albumin TSH Urine WBC (Auto) Salicylates 01/13/17 01/13/17 01/13/17 06:15 11:50 17:31 WBC RBC Hgb Hct MCV MCH RDW Plt Count Lymph % (Auto) [place] % (Auto) Eos % (Auto) [place] # Seg Neutrophils % Seg Neuts % (Manual) Lymphocytes % (Manual) Seg Neutrophils # Seg Neutrophils # Man Lymphocytes # (Manual) APTT POC ABG pH ABG pH POC ABG pCO2 POC ABG pO2 ABG pO2 ABG HCO3 ABG Base Excess ABG Hemoglobin VBG pH Oxyhemoglobin Sodium Potassium Chloride Carbon Dioxide BUN Creatinine Glucose POC Glucose 116 H 171 H 203 H Lactic Acid Calcium AST ALT Alkaline Phosphatase CK-MB (CK-2) CK-MB (CK-2) Rel Index Total Protein Albumin TSH Urine WBC (Auto) Salicylates 01/14/17 01/14/17 01/14/17 00:02 04:50 04:50 WBC RBC 3.32 L Hgb 8.5 L Hct 26.1 L MCV 79 L MCH 26 L RDW 18.2 H Plt Count Lymph % (Auto) [place] % (Auto) 9.0 H Eos % (Auto) [place] # Seg Neutrophils % Seg Neuts % (Manual) Lymphocytes % (Manual) Seg Neutrophils # Seg Neutrophils # Man Lymphocytes # (Manual) APTT POC ABG pH ABG pH POC ABG pCO2 POC ABG pO2 ABG pO2 ABG HCO3 ABG Base Excess ABG Hemoglobin VBG pH Oxyhemoglobin Sodium Potassium Chloride 112.5 H Carbon Dioxide BUN Creatinine Glucose 149 H POC Glucose 157 H Lactic Acid Calcium 8.1 L AST ALT Alkaline Phosphatase CK-MB (CK-2) CK-MB (CK-2) Rel Index Total Protein Albumin TSH Urine WBC (Auto) Salicylates 01/14/17 01/14/17 01/14/17 05:10 11:27 14:07 WBC RBC Hgb Hct MCV MCH RDW Plt Count Lymph % (Auto) [place] % (Auto) Eos % (Auto) [place] # Seg Neutrophils % Seg Neuts % (Manual) Lymphocytes % (Manual) Seg Neutrophils # Seg Neutrophils # Man Lymphocytes # (Manual) APTT POC ABG pH ABG pH POC ABG pCO2 POC ABG pO2 ABG pO2 ABG HCO3 ABG Base Excess ABG Hemoglobin VBG pH Oxyhemoglobin Sodium Potassium Chloride Carbon Dioxide BUN Creatinine Glucose POC Glucose 176 H 147 H Lactic Acid Calcium AST ALT Alkaline Phosphatase CK-MB (CK-2) CK-MB (CK-2) Rel Index Total Protein Albumin TSH Urine WBC (Auto) 53.0 H Salicylates 01/14/17 01/15/17 01/15/17 16:52 00:04 05:26 WBC RBC Hgb Hct MCV MCH RDW Plt Count Lymph % (Auto) [place] % (Auto) Eos % (Auto) [place] # Seg Neutrophils % Seg Neuts % (Manual) Lymphocytes % (Manual) Seg Neutrophils # Seg Neutrophils # Man Lymphocytes # (Manual) APTT POC ABG pH ABG pH POC ABG pCO2 POC ABG pO2 ABG pO2 ABG HCO3 ABG Base Excess ABG Hemoglobin VBG pH Oxyhemoglobin Sodium Potassium Chloride Carbon Dioxide BUN Creatinine Glucose POC Glucose 131 H 193 H 215 H Lactic Acid Calcium AST ALT Alkaline Phosphatase CK-MB (CK-2) CK-MB (CK-2) Rel Index Total Protein Albumin TSH Urine WBC (Auto) Salicylates 01/15/17 01/15/17 01/15/17 11:49 17:47 21:33 WBC RBC Hgb Hct MCV MCH RDW Plt Count Lymph % (Auto) [place] % (Auto) Eos % (Auto) [place] # Seg Neutrophils % Seg Neuts % (Manual) Lymphocytes % (Manual) Seg Neutrophils # Seg Neutrophils # Man Lymphocytes # (Manual) APTT POC ABG pH ABG pH POC ABG pCO2 POC ABG pO2 ABG pO2 ABG HCO3 ABG Base Excess ABG Hemoglobin VBG pH Oxyhemoglobin Sodium Potassium Chloride Carbon Dioxide BUN Creatinine Glucose POC Glucose 121 H 211 H 275 H Lactic Acid Calcium AST ALT Alkaline Phosphatase CK-MB (CK-2) CK-MB (CK-2) Rel Index Total Protein Albumin TSH Urine WBC (Auto) Salicylates 01/16/17 01/16/17 01/16/17 04:30 05:28 13:45 WBC RBC Hgb Hct MCV MCH RDW Plt Count Lymph % (Auto) [place] % (Auto) Eos % (Auto) [place] # Seg Neutrophils % Seg Neuts % (Manual) Lymphocytes % (Manual) Seg Neutrophils # Seg Neutrophils # Man Lymphocytes # (Manual) APTT POC ABG pH ABG pH 7.457 H POC ABG pCO2 POC ABG pO2 ABG pO2 55.1 L ABG HCO3 19.4 L ABG Base Excess -4.0 L ABG Hemoglobin 6.8 L VBG pH Oxyhemoglobin 94.9 L Sodium Potassium Chloride Carbon Dioxide BUN Creatinine Glucose POC Glucose 271 H 236 H Lactic Acid Calcium AST ALT Alkaline Phosphatase CK-MB (CK-2) CK-MB (CK-2) Rel Index Total Protein Albumin TSH Urine WBC (Auto) Salicylates 01/16/17 01/17/17 01/17/17 21:39 04:10 04:10 WBC 4.4 L RBC 2.98 L Hgb 7.7 L Hct 23.3 L MCV 78 L MCH 26 L RDW 18.1 H Plt Count Lymph % (Auto) [place] % (Auto) Eos % (Auto) [place] # Seg Neutrophils % Seg Neuts % (Manual) Lymphocytes % (Manual) Seg Neutrophils # Seg Neutrophils # Man Lymphocytes # (Manual) APTT POC ABG pH ABG pH POC ABG pCO2 POC ABG pO2 ABG pO2 ABG HCO3 ABG Base Excess ABG Hemoglobin VBG pH Oxyhemoglobin Sodium Potassium 3.3 L Chloride 108.7 H Carbon Dioxide 20 L BUN 8 L Creatinine Glucose 202 H POC Glucose 258 H Lactic Acid Calcium 7.6 L AST ALT Alkaline Phosphatase CK-MB (CK-2) CK-MB (CK-2) Rel Index Total Protein Albumin TSH Urine WBC (Auto) Salicylates 01/17/17 01/17/17 01/17/17 04:35 12:23 16:01 WBC RBC Hgb Hct MCV MCH RDW Plt Count Lymph % (Auto) [place] % (Auto) Eos % (Auto) [place] # Seg Neutrophils % Seg Neuts % (Manual) Lymphocytes % (Manual) Seg Neutrophils # Seg Neutrophils # Man Lymphocytes # (Manual) APTT POC ABG pH ABG pH POC ABG pCO2 POC ABG pO2 ABG pO2 160.3 H ABG HCO3 ABG Base Excess -2.3 L ABG Hemoglobin 7.9 L VBG pH Oxyhemoglobin Sodium Potassium Chloride Carbon Dioxide BUN Creatinine Glucose POC Glucose 321 H 239 H Lactic Acid Calcium AST ALT Alkaline Phosphatase CK-MB (CK-2) CK-MB (CK-2) Rel Index Total Protein Albumin TSH Urine WBC (Auto) Salicylates 01/18/17 01/18/17 01/18/17 05:07 12:09 17:54 WBC RBC Hgb Hct MCV MCH RDW Plt Count Lymph % (Auto) [place] % (Auto) Eos % (Auto) [place] # Seg Neutrophils % Seg Neuts % (Manual) Lymphocytes % (Manual) Seg Neutrophils # Seg Neutrophils # Man Lymphocytes # (Manual) APTT POC ABG pH ABG pH POC ABG pCO2 POC ABG pO2 ABG pO2 ABG HCO3 ABG Base Excess ABG Hemoglobin VBG pH Oxyhemoglobin Sodium Potassium Chloride Carbon Dioxide BUN Creatinine Glucose POC Glucose 155 H 203 H 132 H Lactic Acid Calcium AST ALT Alkaline Phosphatase CK-MB (CK-2) CK-MB (CK-2) Rel Index Total Protein Albumin TSH Urine WBC (Auto) Salicylates 01/18/17 01/19/17 01/19/17 23:43 04:28 12:11 WBC RBC Hgb Hct MCV MCH RDW Plt Count Lymph % (Auto) [place] % (Auto) Eos % (Auto) [place] # Seg Neutrophils % Seg Neuts % (Manual) Lymphocytes % (Manual) Seg Neutrophils # Seg Neutrophils # Man Lymphocytes # (Manual) APTT POC ABG pH ABG pH POC ABG pCO2 POC ABG pO2 ABG pO2 ABG HCO3 ABG Base Excess ABG Hemoglobin VBG pH Oxyhemoglobin Sodium Potassium Chloride Carbon Dioxide BUN Creatinine Glucose POC Glucose 125 H 182 H 153 H Lactic Acid Calcium AST ALT Alkaline Phosphatase CK-MB (CK-2) CK-MB (CK-2) Rel Index Total Protein Albumin TSH Urine WBC (Auto) Salicylates 01/19/17 01/20/17 01/20/17 17:23 00:12 05:44 WBC RBC Hgb Hct MCV MCH RDW Plt Count Lymph % (Auto) [place] % (Auto) Eos % (Auto) [place] # Seg Neutrophils % Seg Neuts % (Manual) Lymphocytes % (Manual) Seg Neutrophils # Seg Neutrophils # Man Lymphocytes # (Manual) APTT POC ABG pH ABG pH POC ABG pCO2 POC ABG pO2 ABG pO2 ABG HCO3 ABG Base Excess ABG Hemoglobin VBG pH Oxyhemoglobin Sodium Potassium Chloride Carbon Dioxide BUN Creatinine Glucose POC Glucose 66 L 139 H 176 H Lactic Acid Calcium AST ALT Alkaline Phosphatase CK-MB (CK-2) CK-MB (CK-2) Rel Index Total Protein Albumin TSH Urine WBC (Auto) Salicylates 01/20/17 01/20/17 01/20/17 11:48 17:42 23:43 WBC RBC Hgb Hct MCV MCH RDW Plt Count Lymph % (Auto) [place] % (Auto) Eos % (Auto) [place] # Seg Neutrophils % Seg Neuts % (Manual) Lymphocytes % (Manual) Seg Neutrophils # Seg Neutrophils # Man Lymphocytes # (Manual) APTT POC ABG pH ABG pH POC ABG pCO2 POC ABG pO2 ABG pO2 ABG HCO3 ABG Base Excess ABG Hemoglobin VBG pH Oxyhemoglobin Sodium Potassium Chloride Carbon Dioxide BUN Creatinine Glucose POC Glucose 218 H 132 H 178 H Lactic Acid Calcium AST ALT Alkaline Phosphatase CK-MB (CK-2) CK-MB (CK-2) Rel Index Total Protein Albumin TSH Urine WBC (Auto) Salicylates 01/21/17 01/21/17 01/21/17 05:34 11:17 23:37 WBC RBC Hgb Hct MCV MCH RDW Plt Count Lymph % (Auto) [place] % (Auto) Eos % (Auto) [place] # Seg Neutrophils % Seg Neuts % (Manual) Lymphocytes % (Manual) Seg Neutrophils # Seg Neutrophils # Man Lymphocytes # (Manual) APTT POC ABG pH ABG pH POC ABG pCO2 POC ABG pO2 ABG pO2 ABG HCO3 ABG Base Excess ABG Hemoglobin VBG pH Oxyhemoglobin Sodium Potassium Chloride Carbon Dioxide BUN Creatinine Glucose POC Glucose 106 H 213 H 140 H Lactic Acid Calcium AST ALT Alkaline Phosphatase CK-MB (CK-2) CK-MB (CK-2) Rel Index Total Protein Albumin TSH Urine WBC (Auto) Salicylates 01/22/17 01/22/17 01/22/17 04:00 04:00 04:58 WBC RBC 3.26 L Hgb 8.3 L Hct 25.5 L MCV 78 L MCH 25 L RDW 17.9 H Plt Count Lymph % (Auto) [place] % (Auto) 7.9 H Eos % (Auto) 6.2 H [place] # Seg Neutrophils % Seg Neuts % (Manual) Lymphocytes % (Manual) Seg Neutrophils # Seg Neutrophils # Man Lymphocytes # (Manual) APTT POC ABG pH ABG pH POC ABG pCO2 POC ABG pO2 ABG pO2 ABG HCO3 ABG Base Excess ABG Hemoglobin VBG pH Oxyhemoglobin Sodium Potassium Chloride 95.5 L Carbon Dioxide 31 H D BUN Creatinine Glucose 134 H POC Glucose 146 H Lactic Acid Calcium AST 44 H ALT Alkaline Phosphatase 379 H CK-MB (CK-2) CK-MB (CK-2) Rel Index Total Protein Albumin 2.7 L TSH Urine WBC (Auto) Salicylates 01/22/17 01/22/17 01/22/17 12:12 18:12 23:39 WBC RBC Hgb Hct MCV MCH RDW Plt Count Lymph % (Auto) [place] % (Auto) Eos % (Auto) [place] # Seg Neutrophils % Seg Neuts % (Manual) Lymphocytes % (Manual) Seg Neutrophils # Seg Neutrophils # Man Lymphocytes # (Manual) APTT POC ABG pH ABG pH POC ABG pCO2 POC ABG pO2 ABG pO2 ABG HCO3 ABG Base Excess ABG Hemoglobin VBG pH Oxyhemoglobin Sodium Potassium Chloride Carbon Dioxide BUN Creatinine Glucose POC Glucose 255 H 182 H 134 H Lactic Acid Calcium AST ALT Alkaline Phosphatase CK-MB (CK-2) CK-MB (CK-2) Rel Index Total Protein Albumin TSH Urine WBC (Auto) Salicylates 01/23/17 01/23/17 01/23/17 04:43 12:12 17:36 WBC RBC Hgb Hct MCV MCH RDW Plt Count Lymph % (Auto) [place] % (Auto) Eos % (Auto) [place] # Seg Neutrophils % Seg Neuts % (Manual) Lymphocytes % (Manual) Seg Neutrophils # Seg Neutrophils # Man Lymphocytes # (Manual) APTT POC ABG pH ABG pH POC ABG pCO2 POC ABG pO2 ABG pO2 ABG HCO3 ABG Base Excess ABG Hemoglobin VBG pH Oxyhemoglobin Sodium Potassium Chloride Carbon Dioxide BUN Creatinine Glucose POC Glucose 218 H 128 H 156 H Lactic Acid Calcium AST ALT Alkaline Phosphatase CK-MB (CK-2) CK-MB (CK-2) Rel Index Total Protein Albumin TSH Urine WBC (Auto) Salicylates 01/24/17 01/24/17 01/24/17 00:08 05:16 11:40 WBC RBC Hgb Hct MCV MCH RDW Plt Count Lymph % (Auto) [place] % (Auto) Eos % (Auto) [place] # Seg Neutrophils % Seg Neuts % (Manual) Lymphocytes % (Manual) Seg Neutrophils # Seg Neutrophils # Man Lymphocytes # (Manual) APTT POC ABG pH ABG pH POC ABG pCO2 POC ABG pO2 ABG pO2 ABG HCO3 ABG Base Excess ABG Hemoglobin VBG pH Oxyhemoglobin Sodium Potassium Chloride Carbon Dioxide BUN Creatinine Glucose POC Glucose 129 H 169 H 187 H Lactic Acid Calcium AST ALT Alkaline Phosphatase CK-MB (CK-2) CK-MB (CK-2) Rel Index Total Protein Albumin TSH Urine WBC (Auto) Salicylates 01/24/17 01/24/17 01/25/17 17:43 23:23 04:56 WBC RBC Hgb Hct MCV MCH RDW Plt Count Lymph % (Auto) [place] % (Auto) Eos % (Auto) [place] # Seg Neutrophils % Seg Neuts % (Manual) Lymphocytes % (Manual) Seg Neutrophils # Seg Neutrophils # Man Lymphocytes # (Manual) APTT POC ABG pH ABG pH POC ABG pCO2 POC ABG pO2 ABG pO2 ABG HCO3 ABG Base Excess ABG Hemoglobin VBG pH Oxyhemoglobin Sodium Potassium Chloride Carbon Dioxide BUN Creatinine Glucose POC Glucose 215 H 222 H 210 H Lactic Acid Calcium AST ALT Alkaline Phosphatase CK-MB (CK-2) CK-MB (CK-2) Rel Index Total Protein Albumin TSH Urine WBC (Auto) Salicylates 01/25/17 01/25/17 01/26/17 11:52 17:37 00:02 WBC RBC Hgb Hct MCV MCH RDW Plt Count Lymph % (Auto) [place] % (Auto) Eos % (Auto) [place] # Seg Neutrophils % Seg Neuts % (Manual) Lymphocytes % (Manual) Seg Neutrophils # Seg Neutrophils # Man Lymphocytes # (Manual) APTT POC ABG pH ABG pH POC ABG pCO2 POC ABG pO2 ABG pO2 ABG HCO3 ABG Base Excess ABG Hemoglobin VBG pH Oxyhemoglobin Sodium Potassium Chloride Carbon Dioxide BUN Creatinine Glucose POC Glucose 284 H 218 H 192 H Lactic Acid Calcium AST ALT Alkaline Phosphatase CK-MB (CK-2) CK-MB (CK-2) Rel Index Total Protein Albumin TSH Urine WBC (Auto) Salicylates 01/26/17 01/26/17 01/26/17 05:33 12:17 17:50 WBC RBC Hgb Hct MCV MCH RDW Plt Count Lymph % (Auto) [place] % (Auto) Eos % (Auto) [place] # Seg Neutrophils % Seg Neuts % (Manual) Lymphocytes % (Manual) Seg Neutrophils # Seg Neutrophils # Man Lymphocytes # (Manual) APTT POC ABG pH ABG pH POC ABG pCO2 POC ABG pO2 ABG pO2 ABG HCO3 ABG Base Excess ABG Hemoglobin VBG pH Oxyhemoglobin Sodium Potassium Chloride Carbon Dioxide BUN Creatinine Glucose POC Glucose 199 H 227 H 229 H Lactic Acid Calcium AST ALT Alkaline Phosphatase CK-MB (CK-2) CK-MB (CK-2) Rel Index Total Protein Albumin TSH Urine WBC (Auto) Salicylates 01/26/17 01/27/17 01/27/17 23:57 05:31 11:42 WBC RBC Hgb Hct MCV MCH RDW Plt Count Lymph % (Auto) [place] % (Auto) Eos % (Auto) [place] # Seg Neutrophils % Seg Neuts % (Manual) Lymphocytes % (Manual) Seg Neutrophils # Seg Neutrophils # Man Lymphocytes # (Manual) APTT POC ABG pH ABG pH POC ABG pCO2 POC ABG pO2 ABG pO2 ABG HCO3 ABG Base Excess ABG Hemoglobin VBG pH Oxyhemoglobin Sodium Potassium Chloride Carbon Dioxide BUN Creatinine Glucose POC Glucose 186 H 285 H 260 H Lactic Acid Calcium AST ALT Alkaline Phosphatase CK-MB (CK-2) CK-MB (CK-2) Rel Index Total Protein Albumin TSH Urine WBC (Auto) Salicylates 01/27/17 01/27/17 01/27/17 17:47 23:58 Unknown WBC 12.1 H RBC 3.28 L Hgb 8.5 L Hct 25.5 L MCV 78 L MCH 26 L RDW 16.8 H Plt Count 601 H Lymph % (Auto) [place] % (Auto) Eos % (Auto) [place] # Seg Neutrophils % Seg Neuts % (Manual) Lymphocytes % (Manual) Seg Neutrophils # Seg Neutrophils # Man Lymphocytes # (Manual) APTT POC ABG pH ABG pH POC ABG pCO2 POC ABG pO2 ABG pO2 ABG HCO3 ABG Base Excess ABG Hemoglobin VBG pH Oxyhemoglobin Sodium Potassium Chloride Carbon Dioxide BUN Creatinine Glucose POC Glucose 329 H 225 H Lactic Acid Calcium AST ALT Alkaline Phosphatase CK-MB (CK-2) CK-MB (CK-2) Rel Index Total Protein Albumin TSH Urine WBC (Auto) Salicylates 01/27/17 01/28/17 01/28/17 Unknown 03:44 03:44 WBC RBC 3.14 L Hgb 8.2 L Hct 24.1 L MCV 77 L MCH 26 L RDW 16.9 H Plt Count 567 H Lymph % (Auto) [place] % (Auto) Eos % (Auto) [place] # Seg Neutrophils % Seg Neuts % (Manual) Lymphocytes % (Manual) Seg Neutrophils # Seg Neutrophils # Man Lymphocytes # (Manual) APTT POC ABG pH ABG pH POC ABG pCO2 POC ABG pO2 ABG pO2 ABG HCO3 ABG Base Excess ABG Hemoglobin VBG pH Oxyhemoglobin Sodium 128 L Potassium 5.4 H Chloride 87.5 L Carbon Dioxide BUN 44 H 42 H Creatinine Glucose 250 H 128 H POC Glucose Lactic Acid Calcium AST ALT Alkaline Phosphatase CK-MB (CK-2) CK-MB (CK-2) Rel Index Total Protein Albumin TSH Urine WBC (Auto) Salicylates 01/28/17 01/28/17 01/28/17 11:43 16:47 17:52 WBC RBC Hgb Hct MCV MCH RDW Plt Count Lymph % (Auto) [place] % (Auto) Eos % (Auto) [place] # Seg Neutrophils % Seg Neuts % (Manual) Lymphocytes % (Manual) Seg Neutrophils # Seg Neutrophils # Man Lymphocytes # (Manual) APTT POC ABG pH ABG pH POC ABG pCO2 POC ABG pO2 ABG pO2 ABG HCO3 ABG Base Excess ABG Hemoglobin VBG pH Oxyhemoglobin Sodium Potassium Chloride Carbon Dioxide BUN Creatinine Glucose POC Glucose 351 H 249 H Lactic Acid Calcium AST ALT Alkaline Phosphatase CK-MB (CK-2) CK-MB (CK-2) Rel Index Total Protein Albumin TSH Urine WBC (Auto) > 182.0 H Salicylates 01/29/17 01/29/17 01/29/17 05:25 05:25 09:32 WBC 13.6 H RBC 3.25 L Hgb 8.3 L Hct 25.1 L MCV 77 L MCH 26 L RDW 16.8 H Plt Count 514 H Lymph % (Auto) [place] % (Auto) Eos % (Auto) [place] # Seg Neutrophils % Seg Neuts % (Manual) Lymphocytes % (Manual) Seg Neutrophils # Seg Neutrophils # Man Lymphocytes # (Manual) APTT POC ABG pH ABG pH POC ABG pCO2 POC ABG pO2 ABG pO2 ABG HCO3 ABG Base Excess ABG Hemoglobin VBG pH Oxyhemoglobin Sodium Potassium Chloride 97.8 L Carbon Dioxide BUN 34 H Creatinine Glucose 222 H POC Glucose Lactic Acid 2.50 H* Calcium AST ALT Alkaline Phosphatase CK-MB (CK-2) CK-MB (CK-2) Rel Index Total Protein Albumin TSH Urine WBC (Auto) Salicylates 01/29/17 01/29/17 01/29/17 11:56 18:11 23:55 WBC RBC Hgb Hct MCV MCH RDW Plt Count Lymph % (Auto) [place] % (Auto) Eos % (Auto) [place] # Seg Neutrophils % Seg Neuts % (Manual) Lymphocytes % (Manual) Seg Neutrophils # Seg Neutrophils # Man Lymphocytes # (Manual) APTT POC ABG pH ABG pH POC ABG pCO2 POC ABG pO2 ABG pO2 ABG HCO3 ABG Base Excess ABG Hemoglobin VBG pH Oxyhemoglobin Sodium Potassium Chloride Carbon Dioxide BUN Creatinine Glucose POC Glucose 261 H 215 H 176 H Lactic Acid Calcium AST ALT Alkaline Phosphatase CK-MB (CK-2) CK-MB (CK-2) Rel Index Total Protein Albumin TSH Urine WBC (Auto) Salicylates 01/30/17 01/30/17 01/30/17 05:31 05:31 05:34 WBC 15.2 H RBC 3.09 L Hgb 7.9 L Hct 23.9 L MCV 77 L MCH 26 L RDW 16.9 H Plt Count 569 H Lymph % (Auto) [place] % (Auto) Eos % (Auto) [place] # Seg Neutrophils % Seg Neuts % (Manual) Lymphocytes % (Manual) Seg Neutrophils # Seg Neutrophils # Man Lymphocytes # (Manual) APTT POC ABG pH ABG pH POC ABG pCO2 POC ABG pO2 ABG pO2 ABG HCO3 ABG Base Excess ABG Hemoglobin VBG pH Oxyhemoglobin Sodium Potassium Chloride Carbon Dioxide BUN 24 H Creatinine Glucose 235 H POC Glucose 243 H Lactic Acid Calcium AST ALT Alkaline Phosphatase CK-MB (CK-2) CK-MB (CK-2) Rel Index Total Protein Albumin TSH Urine WBC (Auto) Salicylates 01/30/17 01/30/17 01/30/17 11:38 17:58 23:29 WBC RBC Hgb Hct MCV MCH RDW Plt Count Lymph % (Auto) [place] % (Auto) Eos % (Auto) [place] # Seg Neutrophils % Seg Neuts % (Manual) Lymphocytes % (Manual) Seg Neutrophils # Seg Neutrophils # Man Lymphocytes # (Manual) APTT POC ABG pH ABG pH POC ABG pCO2 POC ABG pO2 ABG pO2 ABG HCO3 ABG Base Excess ABG Hemoglobin VBG pH Oxyhemoglobin Sodium Potassium Chloride Carbon Dioxide BUN Creatinine Glucose POC Glucose 298 H 208 H 245 H Lactic Acid Calcium AST ALT Alkaline Phosphatase CK-MB (CK-2) CK-MB (CK-2) Rel Index Total Protein Albumin TSH Urine WBC (Auto) Salicylates 01/31/17 01/31/17 01/31/17 04:39 04:39 05:57 WBC 11.4 H RBC 3.22 L Hgb 8.2 L Hct 24.9 L MCV 78 L MCH 25 L RDW 17.2 H Plt Count 576 H Lymph % (Auto) [place] % (Auto) Eos % (Auto) [place] # Seg Neutrophils % Seg Neuts % (Manual) Lymphocytes % (Manual) Seg Neutrophils # Seg Neutrophils # Man Lymphocytes # (Manual) APTT POC ABG pH ABG pH POC ABG pCO2 POC ABG pO2 ABG pO2 ABG HCO3 ABG Base Excess ABG Hemoglobin VBG pH Oxyhemoglobin Sodium Potassium Chloride Carbon Dioxide BUN Creatinine 0.7 L Glucose 223 H POC Glucose 264 H Lactic Acid Calcium AST ALT Alkaline Phosphatase CK-MB (CK-2) CK-MB (CK-2) Rel Index Total Protein Albumin TSH Urine WBC (Auto) Salicylates 01/31/17 01/31/17 01/31/17 12:23 17:41 18:55 WBC RBC Hgb Hct MCV MCH RDW Plt Count Lymph % (Auto) [place] % (Auto) Eos % (Auto) [place] # Seg Neutrophils % Seg Neuts % (Manual) Lymphocytes % (Manual) Seg Neutrophils # Seg Neutrophils # Man Lymphocytes # (Manual) APTT POC ABG pH ABG pH POC ABG pCO2 32.8 L POC ABG pO2 ABG pO2 ABG HCO3 ABG Base Excess ABG Hemoglobin VBG pH Oxyhemoglobin Sodium Potassium Chloride Carbon Dioxide BUN Creatinine Glucose POC Glucose 252 H 208 H Lactic Acid Calcium AST ALT Alkaline Phosphatase CK-MB (CK-2) CK-MB (CK-2) Rel Index Total Protein Albumin TSH Urine WBC (Auto) Salicylates 01/31/17 02/01/17 02/01/17 22:59 03:38 03:38 WBC RBC 2.81 L Hgb 7.4 L Hct 22.1 L MCV 79 L MCH 27 L RDW 17.0 H Plt Count 540 H Lymph % (Auto) [place] % (Auto) Eos % (Auto) [place] # Seg Neutrophils % Seg Neuts % (Manual) Lymphocytes % (Manual) Seg Neutrophils # Seg Neutrophils # Man Lymphocytes # (Manual) APTT POC ABG pH ABG pH POC ABG pCO2 POC ABG pO2 ABG pO2 ABG HCO3 ABG Base Excess ABG Hemoglobin VBG pH Oxyhemoglobin Sodium Potassium Chloride Carbon Dioxide 21 L BUN Creatinine 0.7 L Glucose POC Glucose 40 L Lactic Acid Calcium AST ALT Alkaline Phosphatase CK-MB (CK-2) CK-MB (CK-2) Rel Index Total Protein Albumin TSH Urine WBC (Auto) Salicylates 02/01/17 02/01/17 02/01/17 05:17 12:19 16:44 WBC RBC Hgb Hct MCV MCH RDW Plt Count Lymph % (Auto) [place] % (Auto) Eos % (Auto) [place] # Seg Neutrophils % Seg Neuts % (Manual) Lymphocytes % (Manual) Seg Neutrophils # Seg Neutrophils # Man Lymphocytes # (Manual) APTT POC ABG pH ABG pH POC ABG pCO2 POC ABG pO2 ABG pO2 ABG HCO3 ABG Base Excess ABG Hemoglobin VBG pH Oxyhemoglobin Sodium Potassium Chloride Carbon Dioxide BUN Creatinine Glucose POC Glucose 140 H 213 H 172 H Lactic Acid Calcium AST ALT Alkaline Phosphatase CK-MB (CK-2) CK-MB (CK-2) Rel Index Total Protein Albumin TSH Urine WBC (Auto) Salicylates 02/01/17 02/02/17 02/02/17 23:59 05:14 11:24 WBC RBC Hgb Hct MCV MCH RDW Plt Count Lymph % (Auto) [place] % (Auto) Eos % (Auto) [place] # Seg Neutrophils % Seg Neuts % (Manual) Lymphocytes % (Manual) Seg Neutrophils # Seg Neutrophils # Man Lymphocytes # (Manual) APTT POC ABG pH ABG pH POC ABG pCO2 POC ABG pO2 ABG pO2 ABG HCO3 ABG Base Excess ABG Hemoglobin VBG pH Oxyhemoglobin Sodium Potassium Chloride Carbon Dioxide BUN Creatinine Glucose POC Glucose 181 H 194 H 209 H Lactic Acid Calcium AST ALT Alkaline Phosphatase CK-MB (CK-2) CK-MB (CK-2) Rel Index Total Protein Albumin TSH Urine WBC (Auto) Salicylates 02/02/17 02/02/17 02/02/17 11:46 11:46 17:47 WBC RBC 2.94 L Hgb 7.5 L Hct 23.0 L MCV 78 L MCH 25 L RDW 16.9 H Plt Count 520 H Lymph % (Auto) [place] % (Auto) Eos % (Auto) [place] # Seg Neutrophils % Seg Neuts % (Manual) Lymphocytes % (Manual) Seg Neutrophils # Seg Neutrophils # Man Lymphocytes # (Manual) APTT POC ABG pH ABG pH POC ABG pCO2 POC ABG pO2 ABG pO2 ABG HCO3 ABG Base Excess ABG Hemoglobin VBG pH Oxyhemoglobin Sodium Potassium Chloride Carbon Dioxide BUN Creatinine 0.6 L Glucose 189 H POC Glucose 147 H Lactic Acid Calcium 8.1 L AST ALT Alkaline Phosphatase CK-MB (CK-2) CK-MB (CK-2) Rel Index Total Protein Albumin TSH Urine WBC (Auto) Salicylates 02/02/17 02/03/17 02/03/17 23:32 05:53 11:19 WBC RBC Hgb Hct MCV MCH RDW Plt Count Lymph % (Auto) [place] % (Auto) Eos % (Auto) [place] # Seg Neutrophils % Seg Neuts % (Manual) Lymphocytes % (Manual) Seg Neutrophils # Seg Neutrophils # Man Lymphocytes # (Manual) APTT POC ABG pH ABG pH POC ABG pCO2 POC ABG pO2 ABG pO2 ABG HCO3 ABG Base Excess ABG Hemoglobin VBG pH Oxyhemoglobin Sodium Potassium Chloride Carbon Dioxide BUN Creatinine Glucose POC Glucose 176 H 224 H 228 H Lactic Acid Calcium AST ALT Alkaline Phosphatase CK-MB (CK-2) CK-MB (CK-2) Rel Index Total Protein Albumin TSH Urine WBC (Auto) Salicylates 02/03/17 02/03/17 02/04/17 16:59 23:38 05:45 WBC RBC Hgb Hct MCV MCH RDW Plt Count Lymph % (Auto) [place] % (Auto) Eos % (Auto) [place] # Seg Neutrophils % Seg Neuts % (Manual) Lymphocytes % (Manual) Seg Neutrophils # Seg Neutrophils # Man Lymphocytes # (Manual) APTT POC ABG pH ABG pH POC ABG pCO2 POC ABG pO2 ABG pO2 ABG HCO3 ABG Base Excess ABG Hemoglobin VBG pH Oxyhemoglobin Sodium Potassium Chloride Carbon Dioxide BUN Creatinine Glucose POC Glucose 189 H 191 H 251 H Lactic Acid Calcium AST ALT Alkaline Phosphatase CK-MB (CK-2) CK-MB (CK-2) Rel Index Total Protein Albumin TSH Urine WBC (Auto) Salicylates 02/04/17 02/04/17 02/05/17 11:20 17:20 00:17 WBC RBC Hgb Hct MCV MCH RDW Plt Count Lymph % (Auto) [place] % (Auto) Eos % (Auto) [place] # Seg Neutrophils % Seg Neuts % (Manual) Lymphocytes % (Manual) Seg Neutrophils # Seg Neutrophils # Man Lymphocytes # (Manual) APTT POC ABG pH ABG pH POC ABG pCO2 POC ABG pO2 ABG pO2 ABG HCO3 ABG Base Excess ABG Hemoglobin VBG pH Oxyhemoglobin Sodium Potassium Chloride Carbon Dioxide BUN Creatinine Glucose POC Glucose 243 H 163 H 200 H Lactic Acid Calcium AST ALT Alkaline Phosphatase CK-MB (CK-2) CK-MB (CK-2) Rel Index Total Protein Albumin TSH Urine WBC (Auto) Salicylates 02/05/17 02/05/17 02/05/17 05:38 12:38 16:29 WBC RBC Hgb Hct MCV MCH RDW Plt Count Lymph % (Auto) [place] % (Auto) Eos % (Auto) [place] # Seg Neutrophils % Seg Neuts % (Manual) Lymphocytes % (Manual) Seg Neutrophils # Seg Neutrophils # Man Lymphocytes # (Manual) APTT POC ABG pH ABG pH POC ABG pCO2 POC ABG pO2 ABG pO2 ABG HCO3 ABG Base Excess ABG Hemoglobin VBG pH Oxyhemoglobin Sodium Potassium Chloride Carbon Dioxide BUN Creatinine Glucose POC Glucose 248 H 241 H 257 H Lactic Acid Calcium AST ALT Alkaline Phosphatase CK-MB (CK-2) CK-MB (CK-2) Rel Index Total Protein Albumin TSH Urine WBC (Auto) Salicylates 02/05/17 02/06/17 02/06/17 23:56 05:30 11:50 WBC RBC Hgb Hct MCV MCH RDW Plt Count Lymph % (Auto) [place] % (Auto) Eos % (Auto) [place] # Seg Neutrophils % Seg Neuts % (Manual) Lymphocytes % (Manual) Seg Neutrophils # Seg Neutrophils # Man Lymphocytes # (Manual) APTT POC ABG pH ABG pH POC ABG pCO2 POC ABG pO2 ABG pO2 ABG HCO3 ABG Base Excess ABG Hemoglobin VBG pH Oxyhemoglobin Sodium Potassium Chloride Carbon Dioxide BUN Creatinine Glucose POC Glucose 258 H 120 H 254 H Lactic Acid Calcium AST ALT Alkaline Phosphatase CK-MB (CK-2) CK-MB (CK-2) Rel Index Total Protein Albumin TSH Urine WBC (Auto) Salicylates 02/06/17 02/06/17 02/07/17 17:11 23:50 05:22 WBC RBC Hgb Hct MCV MCH RDW Plt Count Lymph % (Auto) [place] % (Auto) Eos % (Auto) [place] # Seg Neutrophils % Seg Neuts % (Manual) Lymphocytes % (Manual) Seg Neutrophils # Seg Neutrophils # Man Lymphocytes # (Manual) APTT POC ABG pH ABG pH POC ABG pCO2 POC ABG pO2 ABG pO2 ABG HCO3 ABG Base Excess ABG Hemoglobin VBG pH Oxyhemoglobin Sodium Potassium Chloride Carbon Dioxide BUN Creatinine Glucose POC Glucose 149 H 240 H 258 H Lactic Acid Calcium AST ALT Alkaline Phosphatase CK-MB (CK-2) CK-MB (CK-2) Rel Index Total Protein Albumin TSH Urine WBC (Auto) Salicylates 02/07/17 02/07/17 02/07/17 11:15 18:33 23:59 WBC RBC Hgb Hct MCV MCH RDW Plt Count Lymph % (Auto) [place] % (Auto) Eos % (Auto) [place] # Seg Neutrophils % Seg Neuts % (Manual) Lymphocytes % (Manual) Seg Neutrophils # Seg Neutrophils # Man Lymphocytes # (Manual) APTT POC ABG pH ABG pH POC ABG pCO2 POC ABG pO2 ABG pO2 ABG HCO3 ABG Base Excess ABG Hemoglobin VBG pH Oxyhemoglobin Sodium Potassium Chloride Carbon Dioxide BUN Creatinine Glucose POC Glucose 239 H 176 H 186 H Lactic Acid Calcium AST ALT Alkaline Phosphatase CK-MB (CK-2) CK-MB (CK-2) Rel Index Total Protein Albumin TSH Urine WBC (Auto) Salicylates 02/08/17 02/08/17 02/08/17 06:15 11:55 16:55 WBC RBC Hgb Hct MCV MCH RDW Plt Count Lymph % (Auto) [place] % (Auto) Eos % (Auto) [place] # Seg Neutrophils % Seg Neuts % (Manual) Lymphocytes % (Manual) Seg Neutrophils # Seg Neutrophils # Man Lymphocytes # (Manual) APTT POC ABG pH ABG pH POC ABG pCO2 POC ABG pO2 ABG pO2 ABG HCO3 ABG Base Excess ABG Hemoglobin VBG pH Oxyhemoglobin Sodium Potassium Chloride Carbon Dioxide BUN Creatinine Glucose POC Glucose 195 H 129 H 246 H Lactic Acid Calcium AST ALT Alkaline Phosphatase CK-MB (CK-2) CK-MB (CK-2) Rel Index Total Protein Albumin TSH Urine WBC (Auto) Salicylates 02/08/17 02/09/17 02/09/17 23:51 05:51 07:24 WBC 14.7 H RBC 3.39 L Hgb 8.9 L Hct 26.4 L MCV 78 L MCH 26 L RDW 18.4 H Plt Count 670 H Lymph % (Auto) 11.8 L [place] % (Auto) Eos % (Auto) [place] # Seg Neutrophils % 81.2 H Seg Neuts % (Manual) Lymphocytes % (Manual) Seg Neutrophils # 11.9 H Seg Neutrophils # Man Lymphocytes # (Manual) APTT POC ABG pH ABG pH POC ABG pCO2 POC ABG pO2 ABG pO2 ABG HCO3 ABG Base Excess ABG Hemoglobin VBG pH Oxyhemoglobin Sodium Potassium Chloride Carbon Dioxide BUN Creatinine Glucose POC Glucose 262 H 295 H Lactic Acid Calcium AST ALT Alkaline Phosphatase CK-MB (CK-2) CK-MB (CK-2) Rel Index Total Protein Albumin TSH Urine WBC (Auto) Salicylates 02/09/17 02/09/17 02/09/17 07:24 12:08 18:39 WBC RBC Hgb Hct MCV MCH RDW Plt Count Lymph % (Auto) [place] % (Auto) Eos % (Auto) [place] # Seg Neutrophils % Seg Neuts % (Manual) Lymphocytes % (Manual) Seg Neutrophils # Seg Neutrophils # Man Lymphocytes # (Manual) APTT POC ABG pH ABG pH POC ABG pCO2 POC ABG pO2 ABG pO2 ABG HCO3 ABG Base Excess ABG Hemoglobin VBG pH Oxyhemoglobin Sodium Potassium Chloride 95.5 L Carbon Dioxide BUN 52 H Creatinine Glucose 277 H POC Glucose 236 H 151 H Lactic Acid Calcium AST ALT Alkaline Phosphatase CK-MB (CK-2) CK-MB (CK-2) Rel Index Total Protein Albumin TSH Urine WBC (Auto) Salicylates 02/10/17 02/10/17 02/10/17 00:01 05:44 11:21 WBC RBC Hgb Hct MCV MCH RDW Plt Count Lymph % (Auto) [place] % (Auto) Eos % (Auto) [place] # Seg Neutrophils % Seg Neuts % (Manual) Lymphocytes % (Manual) Seg Neutrophils # Seg Neutrophils # Man Lymphocytes # (Manual) APTT POC ABG pH ABG pH POC ABG pCO2 POC ABG pO2 ABG pO2 ABG HCO3 ABG Base Excess ABG Hemoglobin VBG pH Oxyhemoglobin Sodium Potassium Chloride Carbon Dioxide BUN Creatinine Glucose POC Glucose 210 H 201 H 233 H Lactic Acid Calcium AST ALT Alkaline Phosphatase CK-MB (CK-2) CK-MB (CK-2) Rel Index Total Protein Albumin TSH Urine WBC (Auto) Salicylates 02/10/17 02/10/17 02/11/17 17:29 23:56 05:24 WBC RBC Hgb Hct MCV MCH RDW Plt Count Lymph % (Auto) [place] % (Auto) Eos % (Auto) [place] # Seg Neutrophils % Seg Neuts % (Manual) Lymphocytes % (Manual) Seg Neutrophils # Seg Neutrophils # Man Lymphocytes # (Manual) APTT POC ABG pH ABG pH POC ABG pCO2 POC ABG pO2 ABG pO2 ABG HCO3 ABG Base Excess ABG Hemoglobin VBG pH Oxyhemoglobin Sodium Potassium Chloride Carbon Dioxide BUN Creatinine Glucose POC Glucose 167 H 191 H 135 H Lactic Acid Calcium AST ALT Alkaline Phosphatase CK-MB (CK-2) CK-MB (CK-2) Rel Index Total Protein Albumin TSH Urine WBC (Auto) Salicylates 02/11/17 02/11/17 02/11/17 12:25 17:03 23:59 WBC RBC Hgb Hct MCV MCH RDW Plt Count Lymph % (Auto) [place] % (Auto) Eos % (Auto) [place] # Seg Neutrophils % Seg Neuts % (Manual) Lymphocytes % (Manual) Seg Neutrophils # Seg Neutrophils # Man Lymphocytes # (Manual) APTT POC ABG pH ABG pH POC ABG pCO2 POC ABG pO2 ABG pO2 ABG HCO3 ABG Base Excess ABG Hemoglobin VBG pH Oxyhemoglobin Sodium Potassium Chloride Carbon Dioxide BUN Creatinine Glucose POC Glucose 275 H 172 H 215 H Lactic Acid Calcium AST ALT Alkaline Phosphatase CK-MB (CK-2) CK-MB (CK-2) Rel Index Total Protein Albumin TSH Urine WBC (Auto) Salicylates 02/12/17 02/12/17 02/12/17 05:39 11:33 17:55 WBC RBC Hgb Hct MCV MCH RDW Plt Count Lymph % (Auto) [place] % (Auto) Eos % (Auto) [place] # Seg Neutrophils % Seg Neuts % (Manual) Lymphocytes % (Manual) Seg Neutrophils # Seg Neutrophils # Man Lymphocytes # (Manual) APTT POC ABG pH ABG pH POC ABG pCO2 POC ABG pO2 ABG pO2 ABG HCO3 ABG Base Excess ABG Hemoglobin VBG pH Oxyhemoglobin Sodium Potassium Chloride Carbon Dioxide BUN Creatinine Glucose POC Glucose 261 H 217 H 172 H Lactic Acid Calcium AST ALT Alkaline Phosphatase CK-MB (CK-2) CK-MB (CK-2) Rel Index Total Protein Albumin TSH Urine WBC (Auto) Salicylates 02/13/17 02/13/17 02/13/17 00:25 06:46 11:26 WBC RBC Hgb Hct MCV MCH RDW Plt Count Lymph % (Auto) [place] % (Auto) Eos % (Auto) [place] # Seg Neutrophils % Seg Neuts % (Manual) Lymphocytes % (Manual) Seg Neutrophils # Seg Neutrophils # Man Lymphocytes # (Manual) APTT POC ABG pH ABG pH POC ABG pCO2 POC ABG pO2 ABG pO2 ABG HCO3 ABG Base Excess ABG Hemoglobin VBG pH Oxyhemoglobin Sodium Potassium Chloride Carbon Dioxide BUN Creatinine Glucose POC Glucose 207 H 219 H 231 H Lactic Acid Calcium AST ALT Alkaline Phosphatase CK-MB (CK-2) CK-MB (CK-2) Rel Index Total Protein Albumin TSH Urine WBC (Auto) Salicylates 02/13/17 02/13/17 02/14/17 17:12 23:44 05:44 WBC RBC Hgb Hct MCV MCH RDW Plt Count Lymph % (Auto) [place] % (Auto) Eos % (Auto) [place] # Seg Neutrophils % Seg Neuts % (Manual) Lymphocytes % (Manual) Seg Neutrophils # Seg Neutrophils # Man Lymphocytes # (Manual) APTT POC ABG pH ABG pH POC ABG pCO2 POC ABG pO2 ABG pO2 ABG HCO3 ABG Base Excess ABG Hemoglobin VBG pH Oxyhemoglobin Sodium Potassium Chloride Carbon Dioxide BUN Creatinine Glucose POC Glucose 190 H 256 H 184 H Lactic Acid Calcium AST ALT Alkaline Phosphatase CK-MB (CK-2) CK-MB (CK-2) Rel Index Total Protein Albumin TSH Urine WBC (Auto) Salicylates 02/14/17 02/14/17 02/14/17 12:21 17:57 23:18 WBC RBC Hgb Hct MCV MCH RDW Plt Count Lymph % (Auto) [place] % (Auto) Eos % (Auto) [place] # Seg Neutrophils % Seg Neuts % (Manual) Lymphocytes % (Manual) Seg Neutrophils # Seg Neutrophils # Man Lymphocytes # (Manual) APTT POC ABG pH ABG pH POC ABG pCO2 POC ABG pO2 ABG pO2 ABG HCO3 ABG Base Excess ABG Hemoglobin VBG pH Oxyhemoglobin Sodium Potassium Chloride Carbon Dioxide BUN Creatinine Glucose POC Glucose 233 H 155 H 165 H Lactic Acid Calcium AST ALT Alkaline Phosphatase CK-MB (CK-2) CK-MB (CK-2) Rel Index Total Protein Albumin TSH Urine WBC (Auto) Salicylates 02/15/17 02/15/17 02/15/17 05:33 11:45 17:20 WBC RBC Hgb Hct MCV MCH RDW Plt Count Lymph % (Auto) [place] % (Auto) Eos % (Auto) [place] # Seg Neutrophils % Seg Neuts % (Manual) Lymphocytes % (Manual) Seg Neutrophils # Seg Neutrophils # Man Lymphocytes # (Manual) APTT POC ABG pH ABG pH POC ABG pCO2 POC ABG pO2 ABG pO2 ABG HCO3 ABG Base Excess ABG Hemoglobin VBG pH Oxyhemoglobin Sodium Potassium Chloride Carbon Dioxide BUN Creatinine Glucose POC Glucose 239 H 130 H 189 H Lactic Acid Calcium AST ALT Alkaline Phosphatase CK-MB (CK-2) CK-MB (CK-2) Rel Index Total Protein Albumin TSH Urine WBC (Auto) Salicylates 02/16/17 02/16/17 02/16/17 00:14 05:09 12:31 WBC RBC Hgb Hct MCV MCH RDW Plt Count Lymph % (Auto) [place] % (Auto) Eos % (Auto) [place] # Seg Neutrophils % Seg Neuts % (Manual) Lymphocytes % (Manual) Seg Neutrophils # Seg Neutrophils # Man Lymphocytes # (Manual) APTT POC ABG pH ABG pH POC ABG pCO2 POC ABG pO2 ABG pO2 ABG HCO3 ABG Base Excess ABG Hemoglobin VBG pH Oxyhemoglobin Sodium Potassium Chloride Carbon Dioxide BUN Creatinine Glucose POC Glucose 197 H 226 H 178 H Lactic Acid Calcium AST ALT Alkaline Phosphatase CK-MB (CK-2) CK-MB (CK-2) Rel Index Total Protein Albumin TSH Urine WBC (Auto) Salicylates 02/16/17 02/16/17 02/17/17 16:35 23:49 05:37 WBC RBC Hgb Hct MCV MCH RDW Plt Count Lymph % (Auto) [place] % (Auto) Eos % (Auto) [place] # Seg Neutrophils % Seg Neuts % (Manual) Lymphocytes % (Manual) Seg Neutrophils # Seg Neutrophils # Man Lymphocytes # (Manual) APTT POC ABG pH ABG pH POC ABG pCO2 POC ABG pO2 ABG pO2 ABG HCO3 ABG Base Excess ABG Hemoglobin VBG pH Oxyhemoglobin Sodium Potassium Chloride Carbon Dioxide BUN Creatinine Glucose POC Glucose 174 H 62 L 153 H Lactic Acid Calcium AST ALT Alkaline Phosphatase CK-MB (CK-2) CK-MB (CK-2) Rel Index Total Protein Albumin TSH Urine WBC (Auto) Salicylates 02/17/17 02/17/17 02/17/17 11:39 17:02 22:24 WBC RBC Hgb Hct MCV MCH RDW Plt Count Lymph % (Auto) [place] % (Auto) Eos % (Auto) [place] # Seg Neutrophils % Seg Neuts % (Manual) Lymphocytes % (Manual) Seg Neutrophils # Seg Neutrophils # Man Lymphocytes # (Manual) APTT POC ABG pH ABG pH POC ABG pCO2 POC ABG pO2 ABG pO2 ABG HCO3 ABG Base Excess ABG Hemoglobin VBG pH Oxyhemoglobin Sodium Potassium Chloride Carbon Dioxide BUN Creatinine Glucose POC Glucose 231 H 112 H 116 H Lactic Acid Calcium AST ALT Alkaline Phosphatase CK-MB (CK-2) CK-MB (CK-2) Rel Index Total Protein Albumin TSH Urine WBC (Auto) Salicylates 02/18/17 02/19/17 02/19/17 15:34 05:09 07:57 WBC RBC Hgb Hct MCV MCH RDW Plt Count Lymph % (Auto) [place] % (Auto) Eos % (Auto) [place] # Seg Neutrophils % Seg Neuts % (Manual) Lymphocytes % (Manual) Seg Neutrophils # Seg Neutrophils # Man Lymphocytes # (Manual) APTT POC ABG pH ABG pH POC ABG pCO2 POC ABG pO2 ABG pO2 ABG HCO3 ABG Base Excess ABG Hemoglobin VBG pH Oxyhemoglobin Sodium Potassium Chloride Carbon Dioxide BUN Creatinine Glucose POC Glucose 215 H 218 H 283 H Lactic Acid Calcium AST ALT Alkaline Phosphatase CK-MB (CK-2) CK-MB (CK-2) Rel Index Total Protein Albumin TSH Urine WBC (Auto) Salicylates 02/19/17 02/19/17 02/20/17 14:49 22:10 05:10 WBC RBC Hgb Hct MCV MCH RDW Plt Count Lymph % (Auto) [place] % (Auto) Eos % (Auto) [place] # Seg Neutrophils % Seg Neuts % (Manual) Lymphocytes % (Manual) Seg Neutrophils # Seg Neutrophils # Man Lymphocytes # (Manual) APTT POC ABG pH ABG pH POC ABG pCO2 POC ABG pO2 ABG pO2 ABG HCO3 ABG Base Excess ABG Hemoglobin VBG pH Oxyhemoglobin Sodium Potassium Chloride Carbon Dioxide BUN Creatinine Glucose POC Glucose 290 H 169 H 209 H Lactic Acid Calcium AST ALT Alkaline Phosphatase CK-MB (CK-2) CK-MB (CK-2) Rel Index Total Protein Albumin TSH Urine WBC (Auto) Salicylates 02/20/17 02/20/17 02/21/17 15:05 21:52 02:00 WBC RBC Hgb Hct MCV MCH RDW Plt Count Lymph % (Auto) [place] % (Auto) Eos % (Auto) [place] # Seg Neutrophils % Seg Neuts % (Manual) Lymphocytes % (Manual) Seg Neutrophils # Seg Neutrophils # Man Lymphocytes # (Manual) APTT POC ABG pH ABG pH POC ABG pCO2 POC ABG pO2 ABG pO2 ABG HCO3 ABG Base Excess ABG Hemoglobin VBG pH Oxyhemoglobin Sodium Potassium Chloride Carbon Dioxide BUN Creatinine Glucose POC Glucose 172 H 209 H 216 H Lactic Acid Calcium AST ALT Alkaline Phosphatase CK-MB (CK-2) CK-MB (CK-2) Rel Index Total Protein Albumin TSH Urine WBC (Auto) Salicylates 02/21/17 02/21/17 02/21/17 04:54 14:43 17:47 WBC RBC Hgb Hct MCV MCH RDW Plt Count Lymph % (Auto) [place] % (Auto) Eos % (Auto) [place] # Seg Neutrophils % Seg Neuts % (Manual) Lymphocytes % (Manual) Seg Neutrophils # Seg Neutrophils # Man Lymphocytes # (Manual) APTT POC ABG pH ABG pH POC ABG pCO2 POC ABG pO2 ABG pO2 ABG HCO3 ABG Base Excess ABG Hemoglobin VBG pH Oxyhemoglobin Sodium Potassium Chloride Carbon Dioxide BUN Creatinine Glucose POC Glucose 227 H 290 H 220 H Lactic Acid Calcium AST ALT Alkaline Phosphatase CK-MB (CK-2) CK-MB (CK-2) Rel Index Total Protein Albumin TSH Urine WBC (Auto) Salicylates 02/21/17 02/22/17 02/22/17 22:02 04:52 15:25 WBC RBC Hgb Hct MCV MCH RDW Plt Count Lymph % (Auto) [place] % (Auto) Eos % (Auto) [place] # Seg Neutrophils % Seg Neuts % (Manual) Lymphocytes % (Manual) Seg Neutrophils # Seg Neutrophils # Man Lymphocytes # (Manual) APTT POC ABG pH ABG pH POC ABG pCO2 POC ABG pO2 ABG pO2 ABG HCO3 ABG Base Excess ABG Hemoglobin VBG pH Oxyhemoglobin Sodium Potassium Chloride Carbon Dioxide BUN Creatinine Glucose POC Glucose 246 H 212 H 236 H Lactic Acid Calcium AST ALT Alkaline Phosphatase CK-MB (CK-2) CK-MB (CK-2) Rel Index Total Protein Albumin TSH Urine WBC (Auto) Salicylates 02/22/17 02/23/17 02/23/17 21:33 06:04 10:00 WBC RBC Hgb Hct MCV MCH RDW Plt Count Lymph % (Auto) [place] % (Auto) Eos % (Auto) [place] # Seg Neutrophils % Seg Neuts % (Manual) Lymphocytes % (Manual) Seg Neutrophils # Seg Neutrophils # Man Lymphocytes # (Manual) APTT POC ABG pH ABG pH POC ABG pCO2 POC ABG pO2 ABG pO2 ABG HCO3 ABG Base Excess ABG Hemoglobin VBG pH Oxyhemoglobin Sodium Potassium Chloride Carbon Dioxide BUN Creatinine Glucose POC Glucose 255 H 208 H 174 H Lactic Acid Calcium AST ALT Alkaline Phosphatase CK-MB (CK-2) CK-MB (CK-2) Rel Index Total Protein Albumin TSH Urine WBC (Auto) Salicylates 02/23/17 02/23/17 02/23/17 12:52 17:15 21:51 WBC RBC Hgb Hct MCV MCH RDW Plt Count Lymph % (Auto) [place] % (Auto) Eos % (Auto) [place] # Seg Neutrophils % Seg Neuts % (Manual) Lymphocytes % (Manual) Seg Neutrophils # Seg Neutrophils # Man Lymphocytes # (Manual) APTT POC ABG pH ABG pH POC ABG pCO2 POC ABG pO2 ABG pO2 ABG HCO3 ABG Base Excess ABG Hemoglobin VBG pH Oxyhemoglobin Sodium Potassium Chloride Carbon Dioxide BUN Creatinine Glucose POC Glucose 203 H 269 H 205 H Lactic Acid Calcium AST ALT Alkaline Phosphatase CK-MB (CK-2) CK-MB (CK-2) Rel Index Total Protein Albumin TSH Urine WBC (Auto) Salicylates 02/24/17 02/24/17 02/24/17 10:23 17:45 21:24 WBC RBC Hgb Hct MCV MCH RDW Plt Count Lymph % (Auto) [place] % (Auto) Eos % (Auto) [place] # Seg Neutrophils % Seg Neuts % (Manual) Lymphocytes % (Manual) Seg Neutrophils # Seg Neutrophils # Man Lymphocytes # (Manual) APTT POC ABG pH ABG pH POC ABG pCO2 POC ABG pO2 ABG pO2 ABG HCO3 ABG Base Excess ABG Hemoglobin VBG pH Oxyhemoglobin Sodium Potassium Chloride Carbon Dioxide BUN Creatinine Glucose POC Glucose 280 H 239 H 254 H Lactic Acid Calcium AST ALT Alkaline Phosphatase CK-MB (CK-2) CK-MB (CK-2) Rel Index Total Protein Albumin TSH Urine WBC (Auto) Salicylates 02/25/17 02/25/17 02/25/17 02:12 05:17 14:32 WBC RBC Hgb Hct MCV MCH RDW Plt Count Lymph % (Auto) [place] % (Auto) Eos % (Auto) [place] # Seg Neutrophils % Seg Neuts % (Manual) Lymphocytes % (Manual) Seg Neutrophils # Seg Neutrophils # Man Lymphocytes # (Manual) APTT POC ABG pH ABG pH POC ABG pCO2 POC ABG pO2 ABG pO2 ABG HCO3 ABG Base Excess ABG Hemoglobin VBG pH Oxyhemoglobin Sodium Potassium Chloride Carbon Dioxide BUN Creatinine Glucose POC Glucose 296 H 332 H 353 H Lactic Acid Calcium AST ALT Alkaline Phosphatase CK-MB (CK-2) CK-MB (CK-2) Rel Index Total Protein Albumin TSH Urine WBC (Auto) Salicylates 02/25/17 02/26/17 02/26/17 22:14 00:37 05:52 WBC RBC Hgb Hct MCV MCH RDW Plt Count Lymph % (Auto) [place] % (Auto) Eos % (Auto) [place] # Seg Neutrophils % Seg Neuts % (Manual) Lymphocytes % (Manual) Seg Neutrophils # Seg Neutrophils # Man Lymphocytes # (Manual) APTT POC ABG pH ABG pH POC ABG pCO2 POC ABG pO2 ABG pO2 ABG HCO3 ABG Base Excess ABG Hemoglobin VBG pH Oxyhemoglobin Sodium Potassium Chloride Carbon Dioxide BUN Creatinine Glucose POC Glucose 201 H 233 H 269 H Lactic Acid Calcium AST ALT Alkaline Phosphatase CK-MB (CK-2) CK-MB (CK-2) Rel Index Total Protein Albumin TSH Urine WBC (Auto) Salicylates 02/26/17 02/26/17 02/26/17 11:48 13:49 21:26 WBC RBC Hgb Hct MCV MCH RDW Plt Count Lymph % (Auto) [place] % (Auto) Eos % (Auto) [place] # Seg Neutrophils % Seg Neuts % (Manual) Lymphocytes % (Manual) Seg Neutrophils # Seg Neutrophils # Man Lymphocytes # (Manual) APTT POC ABG pH ABG pH POC ABG pCO2 POC ABG pO2 ABG pO2 ABG HCO3 ABG Base Excess ABG Hemoglobin VBG pH Oxyhemoglobin Sodium Potassium Chloride Carbon Dioxide BUN Creatinine Glucose POC Glucose 333 H 322 H 244 H Lactic Acid Calcium AST ALT Alkaline Phosphatase CK-MB (CK-2) CK-MB (CK-2) Rel Index Total Protein Albumin TSH Urine WBC (Auto) Salicylates 02/27/17 02/27/17 02/27/17 05:27 13:51 21:48 WBC RBC Hgb Hct MCV MCH RDW Plt Count Lymph % (Auto) [place] % (Auto) Eos % (Auto) [place] # Seg Neutrophils % Seg Neuts % (Manual) Lymphocytes % (Manual) Seg Neutrophils # Seg Neutrophils # Man Lymphocytes # (Manual) APTT POC ABG pH ABG pH POC ABG pCO2 POC ABG pO2 ABG pO2 ABG HCO3 ABG Base Excess ABG Hemoglobin VBG pH Oxyhemoglobin Sodium Potassium Chloride Carbon Dioxide BUN Creatinine Glucose POC Glucose 217 H 239 H 254 H Lactic Acid Calcium AST ALT Alkaline Phosphatase CK-MB (CK-2) CK-MB (CK-2) Rel Index Total Protein Albumin TSH Urine WBC (Auto) Salicylates 02/28/17 02/28/17 02/28/17 05:38 11:00 19:44 WBC RBC Hgb Hct MCV MCH RDW Plt Count Lymph % (Auto) [place] % (Auto) Eos % (Auto) [place] # Seg Neutrophils % Seg Neuts % (Manual) Lymphocytes % (Manual) Seg Neutrophils # Seg Neutrophils # Man Lymphocytes # (Manual) APTT POC ABG pH ABG pH POC ABG pCO2 POC ABG pO2 ABG pO2 ABG HCO3 ABG Base Excess ABG Hemoglobin VBG pH Oxyhemoglobin Sodium Potassium Chloride Carbon Dioxide BUN Creatinine Glucose POC Glucose 325 H 203 H 116 H Lactic Acid Calcium AST ALT Alkaline Phosphatase CK-MB (CK-2) CK-MB (CK-2) Rel Index Total Protein Albumin TSH Urine WBC (Auto) Salicylates 03/01/17 03/01/17 03/01/17 00:08 05:31 12:17 WBC RBC Hgb Hct MCV MCH RDW Plt Count Lymph % (Auto) [place] % (Auto) Eos % (Auto) [place] # Seg Neutrophils % Seg Neuts % (Manual) Lymphocytes % (Manual) Seg Neutrophils # Seg Neutrophils # Man Lymphocytes # (Manual) APTT POC ABG pH ABG pH POC ABG pCO2 POC ABG pO2 ABG pO2 ABG HCO3 ABG Base Excess ABG Hemoglobin VBG pH Oxyhemoglobin Sodium Potassium Chloride Carbon Dioxide BUN Creatinine Glucose POC Glucose 202 H 183 H 184 H Lactic Acid Calcium AST ALT Alkaline Phosphatase CK-MB (CK-2) CK-MB (CK-2) Rel Index Total Protein Albumin TSH Urine WBC (Auto) Salicylates 03/02/17 03/02/17 03/02/17 00:12 05:58 18:22 WBC RBC Hgb Hct MCV MCH RDW Plt Count Lymph % (Auto) [place] % (Auto) Eos % (Auto) [place] # Seg Neutrophils % Seg Neuts % (Manual) Lymphocytes % (Manual) Seg Neutrophils # Seg Neutrophils # Man Lymphocytes # (Manual) APTT POC ABG pH ABG pH POC ABG pCO2 POC ABG pO2 ABG pO2 ABG HCO3 ABG Base Excess ABG Hemoglobin VBG pH Oxyhemoglobin Sodium Potassium Chloride Carbon Dioxide BUN Creatinine Glucose POC Glucose 117 H 176 H 156 H Lactic Acid Calcium AST ALT Alkaline Phosphatase CK-MB (CK-2) CK-MB (CK-2) Rel Index Total Protein Albumin TSH Urine WBC (Auto) Salicylates 03/02/17 03/03/17 03/03/17 23:51 05:44 11:32 WBC RBC Hgb Hct MCV MCH RDW Plt Count Lymph % (Auto) [place] % (Auto) Eos % (Auto) [place] # Seg Neutrophils % Seg Neuts % (Manual) Lymphocytes % (Manual) Seg Neutrophils # Seg Neutrophils # Man Lymphocytes # (Manual) APTT POC ABG pH ABG pH POC ABG pCO2 POC ABG pO2 ABG pO2 ABG HCO3 ABG Base Excess ABG Hemoglobin VBG pH Oxyhemoglobin Sodium Potassium Chloride Carbon Dioxide BUN Creatinine Glucose POC Glucose 211 H 117 H 133 H Lactic Acid Calcium AST ALT Alkaline Phosphatase CK-MB (CK-2) CK-MB (CK-2) Rel Index Total Protein Albumin TSH Urine WBC (Auto) Salicylates 03/03/17 03/03/17 03/04/17 17:43 23:17 05:30 WBC RBC Hgb Hct MCV MCH RDW Plt Count Lymph % (Auto) [place] % (Auto) Eos % (Auto) [place] # Seg Neutrophils % Seg Neuts % (Manual) Lymphocytes % (Manual) Seg Neutrophils # Seg Neutrophils # Man Lymphocytes # (Manual) APTT POC ABG pH ABG pH POC ABG pCO2 POC ABG pO2 ABG pO2 ABG HCO3 ABG Base Excess ABG Hemoglobin VBG pH Oxyhemoglobin Sodium Potassium Chloride Carbon Dioxide BUN Creatinine Glucose POC Glucose 206 H 170 H 126 H Lactic Acid Calcium AST ALT Alkaline Phosphatase CK-MB (CK-2) CK-MB (CK-2) Rel Index Total Protein Albumin TSH Urine WBC (Auto) Salicylates 03/04/17 03/04/17 03/05/17 12:17 17:27 05:20 WBC RBC Hgb Hct MCV MCH RDW Plt Count Lymph % (Auto) [place] % (Auto) Eos % (Auto) [place] # Seg Neutrophils % Seg Neuts % (Manual) Lymphocytes % (Manual) Seg Neutrophils # Seg Neutrophils # Man Lymphocytes # (Manual) APTT POC ABG pH ABG pH POC ABG pCO2 POC ABG pO2 ABG pO2 ABG HCO3 ABG Base Excess ABG Hemoglobin VBG pH Oxyhemoglobin Sodium Potassium Chloride Carbon Dioxide BUN Creatinine Glucose POC Glucose 135 H 121 H 185 H Lactic Acid Calcium AST ALT Alkaline Phosphatase CK-MB (CK-2) CK-MB (CK-2) Rel Index Total Protein Albumin TSH Urine WBC (Auto) Salicylates 03/05/17 03/06/17 03/06/17 11:50 11:52 17:34 WBC RBC Hgb Hct MCV MCH RDW Plt Count Lymph % (Auto) [place] % (Auto) Eos % (Auto) [place] # Seg Neutrophils % Seg Neuts % (Manual) Lymphocytes % (Manual) Seg Neutrophils # Seg Neutrophils # Man Lymphocytes # (Manual) APTT POC ABG pH ABG pH POC ABG pCO2 POC ABG pO2 ABG pO2 ABG HCO3 ABG Base Excess ABG Hemoglobin VBG pH Oxyhemoglobin Sodium Potassium Chloride Carbon Dioxide BUN Creatinine Glucose POC Glucose 116 H 133 H 181 H Lactic Acid Calcium AST ALT Alkaline Phosphatase CK-MB (CK-2) CK-MB (CK-2) Rel Index Total Protein Albumin TSH Urine WBC (Auto) Salicylates 03/07/17 03/07/17 03/07/17 05:21 11:36 17:49 WBC RBC Hgb Hct MCV MCH RDW Plt Count Lymph % (Auto) [place] % (Auto) Eos % (Auto) [place] # Seg Neutrophils % Seg Neuts % (Manual) Lymphocytes % (Manual) Seg Neutrophils # Seg Neutrophils # Man Lymphocytes # (Manual) APTT POC ABG pH ABG pH POC ABG pCO2 POC ABG pO2 ABG pO2 ABG HCO3 ABG Base Excess ABG Hemoglobin VBG pH Oxyhemoglobin Sodium Potassium Chloride Carbon Dioxide BUN Creatinine Glucose POC Glucose 159 H 137 H 158 H Lactic Acid Calcium AST ALT Alkaline Phosphatase CK-MB (CK-2) CK-MB (CK-2) Rel Index Total Protein Albumin TSH Urine WBC (Auto) Salicylates 03/08/17 03/08/17 03/08/17 05:51 13:58 23:50 WBC RBC Hgb Hct MCV MCH RDW Plt Count Lymph % (Auto) [place] % (Auto) Eos % (Auto) [place] # Seg Neutrophils % Seg Neuts % (Manual) Lymphocytes % (Manual) Seg Neutrophils # Seg Neutrophils # Man Lymphocytes # (Manual) APTT POC ABG pH ABG pH POC ABG pCO2 POC ABG pO2 ABG pO2 ABG HCO3 ABG Base Excess ABG Hemoglobin VBG pH Oxyhemoglobin Sodium Potassium Chloride Carbon Dioxide BUN Creatinine Glucose POC Glucose 122 H 182 H 114 H Lactic Acid Calcium AST ALT Alkaline Phosphatase CK-MB (CK-2) CK-MB (CK-2) Rel Index Total Protein Albumin TSH Urine WBC (Auto) Salicylates 03/09/17 03/09/17 03/09/17 05:21 05:51 05:51 WBC RBC 3.61 L Hgb 9.5 L Hct 28.3 L MCV 79 L MCH 26 L RDW 17.8 H Plt Count Lymph % (Auto) [place] % (Auto) Eos % (Auto) [place] # Seg Neutrophils % Seg Neuts % (Manual) Lymphocytes % (Manual) Seg Neutrophils # Seg Neutrophils # Man Lymphocytes # (Manual) APTT POC ABG pH ABG pH POC ABG pCO2 POC ABG pO2 ABG pO2 ABG HCO3 ABG Base Excess ABG Hemoglobin VBG pH Oxyhemoglobin Sodium 134 L Potassium Chloride 95.5 L Carbon Dioxide BUN 33 H Creatinine 0.5 L Glucose 143 H POC Glucose 153 H Lactic Acid Calcium AST ALT Alkaline Phosphatase CK-MB (CK-2) CK-MB (CK-2) Rel Index Total Protein Albumin TSH Urine WBC (Auto) Salicylates 03/09/17 03/09/17 03/09/17 12:10 18:13 21:00 WBC RBC Hgb Hct MCV MCH RDW Plt Count Lymph % (Auto) [place] % (Auto) Eos % (Auto) [place] # Seg Neutrophils % Seg Neuts % (Manual) Lymphocytes % (Manual) Seg Neutrophils # Seg Neutrophils # Man Lymphocytes # (Manual) APTT POC ABG pH ABG pH POC ABG pCO2 POC ABG pO2 ABG pO2 ABG HCO3 ABG Base Excess ABG Hemoglobin VBG pH Oxyhemoglobin Sodium Potassium Chloride Carbon Dioxide BUN Creatinine Glucose POC Glucose 203 H 221 H 198 H Lactic Acid Calcium AST ALT Alkaline Phosphatase CK-MB (CK-2) CK-MB (CK-2) Rel Index Total Protein Albumin TSH Urine WBC (Auto) Salicylates 03/09/17 03/10/17 03/10/17 23:58 05:09 05:09 WBC RBC Hgb 10.3 L Hct 30.5 L MCV 78 L MCH 26 L RDW 17.9 H Plt Count Lymph % (Auto) [place] % (Auto) 10.0 H Eos % (Auto) 6.0 H [place] # Seg Neutrophils % Seg Neuts % (Manual) Lymphocytes % (Manual) Seg Neutrophils # Seg Neutrophils # Man Lymphocytes # (Manual) APTT POC ABG pH ABG pH POC ABG pCO2 POC ABG pO2 ABG pO2 ABG HCO3 ABG Base Excess ABG Hemoglobin VBG pH Oxyhemoglobin Sodium 132 L Potassium Chloride 92.2 L Carbon Dioxide BUN 33 H Creatinine 0.5 L Glucose 50 L POC Glucose 167 H Lactic Acid Calcium AST ALT Alkaline Phosphatase CK-MB (CK-2) CK-MB (CK-2) Rel Index Total Protein Albumin TSH Urine WBC (Auto) Salicylates 03/10/17 03/10/17 03/10/17 05:33 05:34 11:48 WBC RBC Hgb Hct MCV MCH RDW Plt Count Lymph % (Auto) [place] % (Auto) Eos % (Auto) [place] # Seg Neutrophils % Seg Neuts % (Manual) Lymphocytes % (Manual) Seg Neutrophils # Seg Neutrophils # Man Lymphocytes # (Manual) APTT POC ABG pH ABG pH POC ABG pCO2 POC ABG pO2 ABG pO2 ABG HCO3 ABG Base Excess ABG Hemoglobin VBG pH Oxyhemoglobin Sodium Potassium Chloride Carbon Dioxide BUN Creatinine Glucose POC Glucose 52 L 53 L 148 H Lactic Acid Calcium AST ALT Alkaline Phosphatase CK-MB (CK-2) CK-MB (CK-2) Rel Index Total Protein Albumin TSH Urine WBC (Auto) Salicylates 03/10/17 03/10/17 03/11/17 17:53 23:47 05:18 WBC RBC Hgb Hct MCV MCH RDW Plt Count Lymph % (Auto) [place] % (Auto) Eos % (Auto) [place] # Seg Neutrophils % Seg Neuts % (Manual) Lymphocytes % (Manual) Seg Neutrophils # Seg Neutrophils # Man Lymphocytes # (Manual) APTT POC ABG pH ABG pH POC ABG pCO2 POC ABG pO2 ABG pO2 ABG HCO3 ABG Base Excess ABG Hemoglobin VBG pH Oxyhemoglobin Sodium Potassium Chloride Carbon Dioxide BUN Creatinine Glucose POC Glucose 189 H 398 H 126 H Lactic Acid Calcium AST ALT Alkaline Phosphatase CK-MB (CK-2) CK-MB (CK-2) Rel Index Total Protein Albumin TSH Urine WBC (Auto) Salicylates 03/11/17 03/11/17 03/11/17 11:53 17:30 23:10 WBC RBC Hgb Hct MCV MCH RDW Plt Count Lymph % (Auto) [place] % (Auto) Eos % (Auto) [place] # Seg Neutrophils % Seg Neuts % (Manual) Lymphocytes % (Manual) Seg Neutrophils # Seg Neutrophils # Man Lymphocytes # (Manual) APTT POC ABG pH ABG pH POC ABG pCO2 POC ABG pO2 ABG pO2 ABG HCO3 ABG Base Excess ABG Hemoglobin VBG pH Oxyhemoglobin Sodium Potassium Chloride Carbon Dioxide BUN Creatinine Glucose POC Glucose 198 H 142 H 244 H Lactic Acid Calcium AST ALT Alkaline Phosphatase CK-MB (CK-2) CK-MB (CK-2) Rel Index Total Protein Albumin TSH Urine WBC (Auto) Salicylates 03/12/17 03/12/17 03/12/17 04:36 11:49 17:23 WBC RBC Hgb Hct MCV MCH RDW Plt Count Lymph % (Auto) [place] % (Auto) Eos % (Auto) [place] # Seg Neutrophils % Seg Neuts % (Manual) Lymphocytes % (Manual) Seg Neutrophils # Seg Neutrophils # Man Lymphocytes # (Manual) APTT POC ABG pH ABG pH POC ABG pCO2 POC ABG pO2 ABG pO2 ABG HCO3 ABG Base Excess ABG Hemoglobin VBG pH Oxyhemoglobin Sodium Potassium Chloride Carbon Dioxide BUN Creatinine Glucose POC Glucose 205 H 197 H 209 H Lactic Acid Calcium AST ALT Alkaline Phosphatase CK-MB (CK-2) CK-MB (CK-2) Rel Index Total Protein Albumin TSH Urine WBC (Auto) Salicylates 03/12/17 03/13/17 03/13/17 23:51 05:32 11:43 WBC RBC Hgb Hct MCV MCH RDW Plt Count Lymph % (Auto) [place] % (Auto) Eos % (Auto) [place] # Seg Neutrophils % Seg Neuts % (Manual) Lymphocytes % (Manual) Seg Neutrophils # Seg Neutrophils # Man Lymphocytes # (Manual) APTT POC ABG pH ABG pH POC ABG pCO2 POC ABG pO2 ABG pO2 ABG HCO3 ABG Base Excess ABG Hemoglobin VBG pH Oxyhemoglobin Sodium Potassium Chloride Carbon Dioxide BUN Creatinine Glucose POC Glucose 210 H 154 H 164 H Lactic Acid Calcium AST ALT Alkaline Phosphatase CK-MB (CK-2) CK-MB (CK-2) Rel Index Total Protein Albumin TSH Urine WBC (Auto) Salicylates 03/13/17 03/13/17 03/14/17 17:11 23:26 05:42 WBC RBC Hgb Hct MCV MCH RDW Plt Count Lymph % (Auto) [place] % (Auto) Eos % (Auto) [place] # Seg Neutrophils % Seg Neuts % (Manual) Lymphocytes % (Manual) Seg Neutrophils # Seg Neutrophils # Man Lymphocytes # (Manual) APTT POC ABG pH ABG pH POC ABG pCO2 POC ABG pO2 ABG pO2 ABG HCO3 ABG Base Excess ABG Hemoglobin VBG pH Oxyhemoglobin Sodium Potassium Chloride Carbon Dioxide BUN Creatinine Glucose POC Glucose 195 H 240 H 230 H Lactic Acid Calcium AST ALT Alkaline Phosphatase CK-MB (CK-2) CK-MB (CK-2) Rel Index Total Protein Albumin TSH Urine WBC (Auto) Salicylates 03/14/17 03/14/17 03/14/17 14:04 17:34 23:42 WBC RBC Hgb Hct MCV MCH RDW Plt Count Lymph % (Auto) [place] % (Auto) Eos % (Auto) [place] # Seg Neutrophils % Seg Neuts % (Manual) Lymphocytes % (Manual) Seg Neutrophils # Seg Neutrophils # Man Lymphocytes # (Manual) APTT POC ABG pH ABG pH POC ABG pCO2 POC ABG pO2 ABG pO2 ABG HCO3 ABG Base Excess ABG Hemoglobin VBG pH Oxyhemoglobin Sodium Potassium Chloride Carbon Dioxide BUN Creatinine Glucose POC Glucose 227 H 186 H 225 H Lactic Acid Calcium AST ALT Alkaline Phosphatase CK-MB (CK-2) CK-MB (CK-2) Rel Index Total Protein Albumin TSH Urine WBC (Auto) Salicylates 03/15/17 03/15/17 03/15/17 05:21 17:13 21:37 WBC RBC Hgb Hct MCV MCH RDW Plt Count Lymph % (Auto) [place] % (Auto) Eos % (Auto) [place] # Seg Neutrophils % Seg Neuts % (Manual) Lymphocytes % (Manual) Seg Neutrophils # Seg Neutrophils # Man Lymphocytes # (Manual) APTT POC ABG pH ABG pH POC ABG pCO2 POC ABG pO2 ABG pO2 ABG HCO3 ABG Base Excess ABG Hemoglobin VBG pH Oxyhemoglobin Sodium Potassium Chloride Carbon Dioxide BUN Creatinine Glucose POC Glucose 244 H 203 H 216 H Lactic Acid Calcium AST ALT Alkaline Phosphatase CK-MB (CK-2) CK-MB (CK-2) Rel Index Total Protein Albumin TSH Urine WBC (Auto) Salicylates 03/16/17 03/16/17 03/16/17 05:52 18:07 21:54 WBC RBC Hgb Hct MCV MCH RDW Plt Count Lymph % (Auto) [place] % (Auto) Eos % (Auto) [place] # Seg Neutrophils % Seg Neuts % (Manual) Lymphocytes % (Manual) Seg Neutrophils # Seg Neutrophils # Man Lymphocytes # (Manual) APTT POC ABG pH ABG pH POC ABG pCO2 POC ABG pO2 ABG pO2 ABG HCO3 ABG Base Excess ABG Hemoglobin VBG pH Oxyhemoglobin Sodium Potassium Chloride Carbon Dioxide BUN Creatinine Glucose POC Glucose 248 H 254 H 244 H Lactic Acid Calcium AST ALT Alkaline Phosphatase CK-MB (CK-2) CK-MB (CK-2) Rel Index Total Protein Albumin TSH Urine WBC (Auto) Salicylates 03/17/17 03/17/17 03/17/17 07:07 07:42 07:43 WBC RBC Hgb 9.7 L Hct 29.1 L MCV 78 L MCH 26 L RDW 17.4 H Plt Count Lymph % (Auto) [place] % (Auto) Eos % (Auto) [place] # Seg Neutrophils % Seg Neuts % (Manual) Lymphocytes % (Manual) Seg Neutrophils # Seg Neutrophils # Man Lymphocytes # (Manual) APTT POC ABG pH ABG pH POC ABG pCO2 POC ABG pO2 ABG pO2 ABG HCO3 ABG Base Excess ABG Hemoglobin VBG pH Oxyhemoglobin Sodium Potassium Chloride 96.6 L Carbon Dioxide BUN 30 H Creatinine 0.5 L Glucose 251 H POC Glucose 222 H Lactic Acid Calcium AST ALT Alkaline Phosphatase CK-MB (CK-2) CK-MB (CK-2) Rel Index Total Protein Albumin TSH Urine WBC (Auto) Salicylates 03/17/17 03/17/17 03/18/17 14:08 21:20 14:24 WBC RBC Hgb Hct MCV MCH RDW Plt Count Lymph % (Auto) [place] % (Auto) Eos % (Auto) [place] # Seg Neutrophils % Seg Neuts % (Manual) Lymphocytes % (Manual) Seg Neutrophils # Seg Neutrophils # Man Lymphocytes # (Manual) APTT POC ABG pH ABG pH POC ABG pCO2 POC ABG pO2 ABG pO2 ABG HCO3 ABG Base Excess ABG Hemoglobin VBG pH Oxyhemoglobin Sodium Potassium Chloride Carbon Dioxide BUN Creatinine Glucose POC Glucose 281 H 239 H 195 H Lactic Acid Calcium AST ALT Alkaline Phosphatase CK-MB (CK-2) CK-MB (CK-2) Rel Index Total Protein Albumin TSH Urine WBC (Auto) Salicylates 03/18/17 03/19/17 03/19/17 21:37 04:57 14:23 WBC RBC Hgb Hct MCV MCH RDW Plt Count Lymph % (Auto) [place] % (Auto) Eos % (Auto) [place] # Seg Neutrophils % Seg Neuts % (Manual) Lymphocytes % (Manual) Seg Neutrophils # Seg Neutrophils # Man Lymphocytes # (Manual) APTT POC ABG pH ABG pH POC ABG pCO2 POC ABG pO2 ABG pO2 ABG HCO3 ABG Base Excess ABG Hemoglobin VBG pH Oxyhemoglobin Sodium Potassium Chloride Carbon Dioxide BUN Creatinine Glucose POC Glucose 227 H 205 H 277 H Lactic Acid Calcium AST ALT Alkaline Phosphatase CK-MB (CK-2) CK-MB (CK-2) Rel Index Total Protein Albumin TSH Urine WBC (Auto) Salicylates 03/19/17 03/19/17 03/20/17 20:31 21:47 04:55 WBC RBC Hgb Hct MCV MCH RDW Plt Count Lymph % (Auto) [place] % (Auto) Eos % (Auto) [place] # Seg Neutrophils % Seg Neuts % (Manual) Lymphocytes % (Manual) Seg Neutrophils # Seg Neutrophils # Man Lymphocytes # (Manual) APTT POC ABG pH ABG pH POC ABG pCO2 POC ABG pO2 ABG pO2 ABG HCO3 ABG Base Excess ABG Hemoglobin VBG pH Oxyhemoglobin Sodium Potassium Chloride Carbon Dioxide BUN Creatinine Glucose POC Glucose 256 H 270 H 202 H Lactic Acid Calcium AST ALT Alkaline Phosphatase CK-MB (CK-2) CK-MB (CK-2) Rel Index Total Protein Albumin TSH Urine WBC (Auto) Salicylates 03/20/17 03/20/17 03/21/17 14:09 21:40 05:09 WBC RBC Hgb Hct MCV MCH RDW Plt Count Lymph % (Auto) [place] % (Auto) Eos % (Auto) [place] # Seg Neutrophils % Seg Neuts % (Manual) Lymphocytes % (Manual) Seg Neutrophils # Seg Neutrophils # Man Lymphocytes # (Manual) APTT POC ABG pH ABG pH POC ABG pCO2 POC ABG pO2 ABG pO2 ABG HCO3 ABG Base Excess ABG Hemoglobin VBG pH Oxyhemoglobin Sodium Potassium Chloride Carbon Dioxide BUN Creatinine Glucose POC Glucose 200 H 214 H 233 H Lactic Acid Calcium AST ALT Alkaline Phosphatase CK-MB (CK-2) CK-MB (CK-2) Rel Index Total Protein Albumin TSH Urine WBC (Auto) Salicylates 03/21/17 03/21/17 03/22/17 14:06 21:26 05:43 WBC RBC Hgb Hct MCV MCH RDW Plt Count Lymph % (Auto) [place] % (Auto) Eos % (Auto) [place] # Seg Neutrophils % Seg Neuts % (Manual) Lymphocytes % (Manual) Seg Neutrophils # Seg Neutrophils # Man Lymphocytes # (Manual) APTT POC ABG pH ABG pH POC ABG pCO2 POC ABG pO2 ABG pO2 ABG HCO3 ABG Base Excess ABG Hemoglobin VBG pH Oxyhemoglobin Sodium Potassium Chloride Carbon Dioxide BUN Creatinine Glucose POC Glucose 250 H 155 H 251 H Lactic Acid Calcium AST ALT Alkaline Phosphatase CK-MB (CK-2) CK-MB (CK-2) Rel Index Total Protein Albumin TSH Urine WBC (Auto) Salicylates 03/22/17 03/22/17 03/23/17 13:46 21:16 00:23 WBC RBC Hgb Hct MCV MCH RDW Plt Count Lymph % (Auto) [place] % (Auto) Eos % (Auto) [place] # Seg Neutrophils % Seg Neuts % (Manual) Lymphocytes % (Manual) Seg Neutrophils # Seg Neutrophils # Man Lymphocytes # (Manual) APTT POC ABG pH ABG pH POC ABG pCO2 POC ABG pO2 ABG pO2 ABG HCO3 ABG Base Excess ABG Hemoglobin VBG pH Oxyhemoglobin Sodium Potassium Chloride Carbon Dioxide BUN Creatinine Glucose POC Glucose 269 H 197 H 126 H Lactic Acid Calcium AST ALT Alkaline Phosphatase CK-MB (CK-2) CK-MB (CK-2) Rel Index Total Protein Albumin TSH Urine WBC (Auto) Salicylates 03/23/17 03/23/17 03/23/17 05:39 14:06 21:39 WBC RBC Hgb Hct MCV MCH RDW Plt Count Lymph % (Auto) [place] % (Auto) Eos % (Auto) [place] # Seg Neutrophils % Seg Neuts % (Manual) Lymphocytes % (Manual) Seg Neutrophils # Seg Neutrophils # Man Lymphocytes # (Manual) APTT POC ABG pH ABG pH POC ABG pCO2 POC ABG pO2 ABG pO2 ABG HCO3 ABG Base Excess ABG Hemoglobin VBG pH Oxyhemoglobin Sodium Potassium Chloride Carbon Dioxide BUN Creatinine Glucose POC Glucose 234 H 241 H 248 H Lactic Acid Calcium AST ALT Alkaline Phosphatase CK-MB (CK-2) CK-MB (CK-2) Rel Index Total Protein Albumin TSH Urine WBC (Auto) Salicylates 03/24/17 03/24/17 03/25/17 05:06 21:46 05:38 WBC RBC Hgb Hct MCV MCH RDW Plt Count Lymph % (Auto) [place] % (Auto) Eos % (Auto) [place] # Seg Neutrophils % Seg Neuts % (Manual) Lymphocytes % (Manual) Seg Neutrophils # Seg Neutrophils # Man Lymphocytes # (Manual) APTT POC ABG pH ABG pH POC ABG pCO2 POC ABG pO2 ABG pO2 ABG HCO3 ABG Base Excess ABG Hemoglobin VBG pH Oxyhemoglobin Sodium Potassium Chloride Carbon Dioxide BUN Creatinine Glucose POC Glucose 232 H 276 H 242 H Lactic Acid Calcium AST ALT Alkaline Phosphatase CK-MB (CK-2) CK-MB (CK-2) Rel Index Total Protein Albumin TSH Urine WBC (Auto) Salicylates 03/25/17 03/25/17 03/26/17 14:30 23:14 13:53 WBC RBC Hgb Hct MCV MCH RDW Plt Count Lymph % (Auto) [place] % (Auto) Eos % (Auto) [place] # Seg Neutrophils % Seg Neuts % (Manual) Lymphocytes % (Manual) Seg Neutrophils # Seg Neutrophils # Man Lymphocytes # (Manual) APTT POC ABG pH ABG pH POC ABG pCO2 POC ABG pO2 ABG pO2 ABG HCO3 ABG Base Excess ABG Hemoglobin VBG pH Oxyhemoglobin Sodium Potassium Chloride Carbon Dioxide BUN Creatinine Glucose POC Glucose 246 H 208 H 195 H Lactic Acid Calcium AST ALT Alkaline Phosphatase CK-MB (CK-2) CK-MB (CK-2) Rel Index Total Protein Albumin TSH Urine WBC (Auto) Salicylates 03/26/17 03/27/17 03/27/17 21:58 05:18 14:57 WBC RBC Hgb Hct MCV MCH RDW Plt Count Lymph % (Auto) [place] % (Auto) Eos % (Auto) [place] # Seg Neutrophils % Seg Neuts % (Manual) Lymphocytes % (Manual) Seg Neutrophils # Seg Neutrophils # Man Lymphocytes # (Manual) APTT POC ABG pH ABG pH POC ABG pCO2 POC ABG pO2 ABG pO2 ABG HCO3 ABG Base Excess ABG Hemoglobin VBG pH Oxyhemoglobin Sodium Potassium Chloride Carbon Dioxide BUN Creatinine Glucose POC Glucose 241 H 199 H 269 H Lactic Acid Calcium AST ALT Alkaline Phosphatase CK-MB (CK-2) CK-MB (CK-2) Rel Index Total Protein Albumin TSH Urine WBC (Auto) Salicylates 03/27/17 03/28/17 03/28/17 21:33 13:52 21:29 WBC RBC Hgb Hct MCV MCH RDW Plt Count Lymph % (Auto) [place] % (Auto) Eos % (Auto) [place] # Seg Neutrophils % Seg Neuts % (Manual) Lymphocytes % (Manual) Seg Neutrophils # Seg Neutrophils # Man Lymphocytes # (Manual) APTT POC ABG pH ABG pH POC ABG pCO2 POC ABG pO2 ABG pO2 ABG HCO3 ABG Base Excess ABG Hemoglobin VBG pH Oxyhemoglobin Sodium Potassium Chloride Carbon Dioxide BUN Creatinine Glucose POC Glucose 214 H 243 H 286 H Lactic Acid Calcium AST ALT Alkaline Phosphatase CK-MB (CK-2) CK-MB (CK-2) Rel Index Total Protein Albumin TSH Urine WBC (Auto) Salicylates 03/29/17 03/29/17 03/29/17 04:32 04:32 13:58 WBC RBC Hgb 10.6 L Hct 32.9 L MCV 78 L MCH 25 L RDW 17.6 H Plt Count Lymph % (Auto) 38.0 H [place] % (Auto) 9.7 H Eos % (Auto) [place] # Seg Neutrophils % Seg Neuts % (Manual) Lymphocytes % (Manual) Seg Neutrophils # Seg Neutrophils # Man Lymphocytes # (Manual) APTT POC ABG pH ABG pH POC ABG pCO2 POC ABG pO2 ABG pO2 ABG HCO3 ABG Base Excess ABG Hemoglobin VBG pH Oxyhemoglobin Sodium 132 L Potassium Chloride 94.0 L Carbon Dioxide BUN 28 H Creatinine 0.5 L Glucose 236 H POC Glucose 171 H Lactic Acid Calcium AST ALT 71 H Alkaline Phosphatase 391 H CK-MB (CK-2) CK-MB (CK-2) Rel Index Total Protein 8.3 H Albumin 2.9 L TSH Urine WBC (Auto) Salicylates 03/29/17 03/30/17 03/30/17 20:59 06:07 11:52 WBC RBC Hgb Hct MCV MCH RDW Plt Count Lymph % (Auto) [place] % (Auto) Eos % (Auto) [place] # Seg Neutrophils % Seg Neuts % (Manual) Lymphocytes % (Manual) Seg Neutrophils # Seg Neutrophils # Man Lymphocytes # (Manual) APTT POC ABG pH ABG pH POC ABG pCO2 POC ABG pO2 ABG pO2 ABG HCO3 ABG Base Excess ABG Hemoglobin VBG pH Oxyhemoglobin Sodium Potassium Chloride Carbon Dioxide BUN Creatinine Glucose POC Glucose 215 H 259 H 197 H Lactic Acid Calcium AST ALT Alkaline Phosphatase CK-MB (CK-2) CK-MB (CK-2) Rel Index Total Protein Albumin TSH Urine WBC (Auto) Salicylates 03/30/17 03/31/17 03/31/17 21:34 05:42 14:34 WBC RBC Hgb Hct MCV MCH RDW Plt Count Lymph % (Auto) [place] % (Auto) Eos % (Auto) [place] # Seg Neutrophils % Seg Neuts % (Manual) Lymphocytes % (Manual) Seg Neutrophils # Seg Neutrophils # Man Lymphocytes # (Manual) APTT POC ABG pH ABG pH POC ABG pCO2 POC ABG pO2 ABG pO2 ABG HCO3 ABG Base Excess ABG Hemoglobin VBG pH Oxyhemoglobin Sodium Potassium Chloride Carbon Dioxide BUN Creatinine Glucose POC Glucose 207 H 184 H 213 H Lactic Acid Calcium AST ALT Alkaline Phosphatase CK-MB (CK-2) CK-MB (CK-2) Rel Index Total Protein Albumin TSH Urine WBC (Auto) Salicylates 03/31/17 04/01/17 04/01/17 21:32 05:53 13:48 WBC RBC Hgb Hct MCV MCH RDW Plt Count Lymph % (Auto) [place] % (Auto) Eos % (Auto) [place] # Seg Neutrophils % Seg Neuts % (Manual) Lymphocytes % (Manual) Seg Neutrophils # Seg Neutrophils # Man Lymphocytes # (Manual) APTT POC ABG pH ABG pH POC ABG pCO2 POC ABG pO2 ABG pO2 ABG HCO3 ABG Base Excess ABG Hemoglobin VBG pH Oxyhemoglobin Sodium Potassium Chloride Carbon Dioxide BUN Creatinine Glucose POC Glucose 249 H 225 H 256 H Lactic Acid Calcium AST ALT Alkaline Phosphatase CK-MB (CK-2) CK-MB (CK-2) Rel Index Total Protein Albumin TSH Urine WBC (Auto) Salicylates 04/01/17 04/02/17 04/02/17 21:34 05:32 14:05 WBC RBC Hgb Hct MCV MCH RDW Plt Count Lymph % (Auto) [place] % (Auto) Eos % (Auto) [place] # Seg Neutrophils % Seg Neuts % (Manual) Lymphocytes % (Manual) Seg Neutrophils # Seg Neutrophils # Man Lymphocytes # (Manual) APTT POC ABG pH ABG pH POC ABG pCO2 POC ABG pO2 ABG pO2 ABG HCO3 ABG Base Excess ABG Hemoglobin VBG pH Oxyhemoglobin Sodium Potassium Chloride Carbon Dioxide BUN Creatinine Glucose POC Glucose 292 H 220 H 187 H Lactic Acid Calcium AST ALT Alkaline Phosphatase CK-MB (CK-2) CK-MB (CK-2) Rel Index Total Protein Albumin TSH Urine WBC (Auto) Salicylates 04/02/17 04/03/17 04/03/17 21:57 04:49 14:12 WBC RBC Hgb Hct MCV MCH RDW Plt Count Lymph % (Auto) [place] % (Auto) Eos % (Auto) [place] # Seg Neutrophils % Seg Neuts % (Manual) Lymphocytes % (Manual) Seg Neutrophils # Seg Neutrophils # Man Lymphocytes # (Manual) APTT POC ABG pH ABG pH POC ABG pCO2 POC ABG pO2 ABG pO2 ABG HCO3 ABG Base Excess ABG Hemoglobin VBG pH Oxyhemoglobin Sodium Potassium Chloride Carbon Dioxide BUN Creatinine Glucose POC Glucose 285 H 256 H 197 H Lactic Acid Calcium AST ALT Alkaline Phosphatase CK-MB (CK-2) CK-MB (CK-2) Rel Index Total Protein Albumin TSH Urine WBC (Auto) Salicylates 04/03/17 04/04/17 04/04/17 21:11 05:20 13:18 WBC RBC Hgb Hct MCV MCH RDW Plt Count Lymph % (Auto) [place] % (Auto) Eos % (Auto) [place] # Seg Neutrophils % Seg Neuts % (Manual) Lymphocytes % (Manual) Seg Neutrophils # Seg Neutrophils # Man Lymphocytes # (Manual) APTT POC ABG pH ABG pH POC ABG pCO2 POC ABG pO2 ABG pO2 ABG HCO3 ABG Base Excess ABG Hemoglobin VBG pH Oxyhemoglobin Sodium Potassium Chloride Carbon Dioxide BUN Creatinine Glucose POC Glucose 166 H 228 H 252 H Lactic Acid Calcium AST ALT Alkaline Phosphatase CK-MB (CK-2) CK-MB (CK-2) Rel Index Total Protein Albumin TSH Urine WBC (Auto) Salicylates 04/04/17 04/05/17 04/05/17 21:51 06:14 09:54 WBC RBC Hgb Hct MCV MCH RDW Plt Count Lymph % (Auto) [place] % (Auto) Eos % (Auto) [place] # Seg Neutrophils % Seg Neuts % (Manual) Lymphocytes % (Manual) Seg Neutrophils # Seg Neutrophils # Man Lymphocytes # (Manual) APTT POC ABG pH ABG pH POC ABG pCO2 POC ABG pO2 ABG pO2 ABG HCO3 ABG Base Excess ABG Hemoglobin VBG pH Oxyhemoglobin Sodium Potassium Chloride Carbon Dioxide BUN Creatinine Glucose POC Glucose 252 H 152 H 181 H Lactic Acid Calcium AST ALT Alkaline Phosphatase CK-MB (CK-2) CK-MB (CK-2) Rel Index Total Protein Albumin TSH Urine WBC (Auto) Salicylates 04/05/17 04/05/17 04/05/17 14:49 17:34 21:38 WBC RBC Hgb Hct MCV MCH RDW Plt Count Lymph % (Auto) [place] % (Auto) Eos % (Auto) [place] # Seg Neutrophils % Seg Neuts % (Manual) Lymphocytes % (Manual) Seg Neutrophils # Seg Neutrophils # Man Lymphocytes # (Manual) APTT POC ABG pH ABG pH POC ABG pCO2 POC ABG pO2 ABG pO2 ABG HCO3 ABG Base Excess ABG Hemoglobin VBG pH Oxyhemoglobin Sodium Potassium Chloride Carbon Dioxide BUN Creatinine Glucose POC Glucose 219 H 268 H 278 H Lactic Acid Calcium AST ALT Alkaline Phosphatase CK-MB (CK-2) CK-MB (CK-2) Rel Index Total Protein Albumin TSH Urine WBC (Auto) Salicylates 04/06/17 04/06/17 04/07/17 15:04 22:14 05:09 WBC RBC Hgb Hct MCV MCH RDW Plt Count Lymph % (Auto) [place] % (Auto) Eos % (Auto) [place] # Seg Neutrophils % Seg Neuts % (Manual) Lymphocytes % (Manual) Seg Neutrophils # Seg Neutrophils # Man Lymphocytes # (Manual) APTT POC ABG pH ABG pH POC ABG pCO2 POC ABG pO2 ABG pO2 ABG HCO3 ABG Base Excess ABG Hemoglobin VBG pH Oxyhemoglobin Sodium Potassium Chloride Carbon Dioxide BUN Creatinine Glucose POC Glucose 285 H 106 H 334 H Lactic Acid Calcium AST ALT Alkaline Phosphatase CK-MB (CK-2) CK-MB (CK-2) Rel Index Total Protein Albumin TSH Urine WBC (Auto) Salicylates 04/07/17 04/07/17 04/08/17 14:45 21:48 05:28 WBC RBC Hgb Hct MCV MCH RDW Plt Count Lymph % (Auto) [place] % (Auto) Eos % (Auto) [place] # Seg Neutrophils % Seg Neuts % (Manual) Lymphocytes % (Manual) Seg Neutrophils # Seg Neutrophils # Man Lymphocytes # (Manual) APTT POC ABG pH ABG pH POC ABG pCO2 POC ABG pO2 ABG pO2 ABG HCO3 ABG Base Excess ABG Hemoglobin VBG pH Oxyhemoglobin Sodium Potassium Chloride Carbon Dioxide BUN Creatinine Glucose POC Glucose 173 H 304 H 314 H Lactic Acid Calcium AST ALT Alkaline Phosphatase CK-MB (CK-2) CK-MB (CK-2) Rel Index Total Protein Albumin TSH Urine WBC (Auto) Salicylates 04/08/17 04/08/17 04/08/17 15:57 16:17 22:21 WBC RBC Hgb Hct MCV MCH RDW Plt Count Lymph % (Auto) [place] % (Auto) Eos % (Auto) [place] # Seg Neutrophils % Seg Neuts % (Manual) Lymphocytes % (Manual) Seg Neutrophils # Seg Neutrophils # Man Lymphocytes # (Manual) APTT POC ABG pH ABG pH POC ABG pCO2 POC ABG pO2 ABG pO2 ABG HCO3 ABG Base Excess ABG Hemoglobin VBG pH Oxyhemoglobin Sodium Potassium Chloride Carbon Dioxide BUN Creatinine Glucose POC Glucose 356 H 337 H 323 H Lactic Acid Calcium AST ALT Alkaline Phosphatase CK-MB (CK-2) CK-MB (CK-2) Rel Index Total Protein Albumin TSH Urine WBC (Auto) Salicylates 04/09/17 04/09/17 04/09/17 06:19 15:30 21:52 WBC RBC Hgb Hct MCV MCH RDW Plt Count Lymph % (Auto) [place] % (Auto) Eos % (Auto) [place] # Seg Neutrophils % Seg Neuts % (Manual) Lymphocytes % (Manual) Seg Neutrophils # Seg Neutrophils # Man Lymphocytes # (Manual) APTT POC ABG pH ABG pH POC ABG pCO2 POC ABG pO2 ABG pO2 ABG HCO3 ABG Base Excess ABG Hemoglobin VBG pH Oxyhemoglobin Sodium Potassium Chloride Carbon Dioxide BUN Creatinine Glucose POC Glucose 340 H 332 H 341 H Lactic Acid Calcium AST ALT Alkaline Phosphatase CK-MB (CK-2) CK-MB (CK-2) Rel Index Total Protein Albumin TSH Urine WBC (Auto) Salicylates 04/10/17 04/10/17 04/10/17 01:53 05:33 17:40 WBC RBC Hgb Hct MCV MCH RDW Plt Count Lymph % (Auto) [place] % (Auto) Eos % (Auto) [place] # Seg Neutrophils % Seg Neuts % (Manual) Lymphocytes % (Manual) Seg Neutrophils # Seg Neutrophils # Man Lymphocytes # (Manual) APTT POC ABG pH ABG pH POC ABG pCO2 POC ABG pO2 ABG pO2 ABG HCO3 ABG Base Excess ABG Hemoglobin VBG pH Oxyhemoglobin Sodium Potassium Chloride Carbon Dioxide BUN Creatinine Glucose POC Glucose 261 H 277 H 304 H Lactic Acid Calcium AST ALT Alkaline Phosphatase CK-MB (CK-2) CK-MB (CK-2) Rel Index Total Protein Albumin TSH Urine WBC (Auto) Salicylates 04/10/17 04/11/17 04/11/17 21:29 05:28 14:02 WBC RBC Hgb Hct MCV MCH RDW Plt Count Lymph % (Auto) [place] % (Auto) Eos % (Auto) [place] # Seg Neutrophils % Seg Neuts % (Manual) Lymphocytes % (Manual) Seg Neutrophils # Seg Neutrophils # Man Lymphocytes # (Manual) APTT POC ABG pH ABG pH POC ABG pCO2 POC ABG pO2 ABG pO2 ABG HCO3 ABG Base Excess ABG Hemoglobin VBG pH Oxyhemoglobin Sodium Potassium Chloride Carbon Dioxide BUN Creatinine Glucose POC Glucose 361 H 204 H 236 H Lactic Acid Calcium AST ALT Alkaline Phosphatase CK-MB (CK-2) CK-MB (CK-2) Rel Index Total Protein Albumin TSH Urine WBC (Auto) Salicylates 04/11/17 04/12/17 04/12/17 21:43 05:00 11:53 WBC RBC Hgb Hct MCV MCH RDW Plt Count Lymph % (Auto) [place] % (Auto) Eos % (Auto) [place] # Seg Neutrophils % Seg Neuts % (Manual) Lymphocytes % (Manual) Seg Neutrophils # Seg Neutrophils # Man Lymphocytes # (Manual) APTT POC ABG pH ABG pH POC ABG pCO2 POC ABG pO2 ABG pO2 ABG HCO3 ABG Base Excess ABG Hemoglobin VBG pH Oxyhemoglobin Sodium Potassium Chloride Carbon Dioxide BUN Creatinine Glucose POC Glucose 287 H 294 H 265 H Lactic Acid Calcium AST ALT Alkaline Phosphatase CK-MB (CK-2) CK-MB (CK-2) Rel Index Total Protein Albumin TSH Urine WBC (Auto) Salicylates 04/12/17 04/12/17 04/13/17 21:21 23:44 06:05 WBC RBC Hgb Hct MCV MCH RDW Plt Count Lymph % (Auto) [place] % (Auto) Eos % (Auto) [place] # Seg Neutrophils % Seg Neuts % (Manual) Lymphocytes % (Manual) Seg Neutrophils # Seg Neutrophils # Man Lymphocytes # (Manual) APTT POC ABG pH ABG pH POC ABG pCO2 POC ABG pO2 ABG pO2 ABG HCO3 ABG Base Excess ABG Hemoglobin VBG pH Oxyhemoglobin Sodium Potassium Chloride Carbon Dioxide BUN Creatinine Glucose POC Glucose 289 H 348 H 326 H Lactic Acid Calcium AST ALT Alkaline Phosphatase CK-MB (CK-2) CK-MB (CK-2) Rel Index Total Protein Albumin TSH Urine WBC (Auto) Salicylates 04/13/17 04/13/17 04/14/17 13:54 21:15 05:49 WBC RBC Hgb Hct MCV MCH RDW Plt Count Lymph % (Auto) [place] % (Auto) Eos % (Auto) [place] # Seg Neutrophils % Seg Neuts % (Manual) Lymphocytes % (Manual) Seg Neutrophils # Seg Neutrophils # Man Lymphocytes # (Manual) APTT POC ABG pH ABG pH POC ABG pCO2 POC ABG pO2 ABG pO2 ABG HCO3 ABG Base Excess ABG Hemoglobin VBG pH Oxyhemoglobin Sodium Potassium Chloride Carbon Dioxide BUN Creatinine Glucose POC Glucose 326 H 263 H 319 H Lactic Acid Calcium AST ALT Alkaline Phosphatase CK-MB (CK-2) CK-MB (CK-2) Rel Index Total Protein Albumin TSH Urine WBC (Auto) Salicylates 04/14/17 04/14/17 04/15/17 13:26 23:13 14:24 WBC RBC Hgb Hct MCV MCH RDW Plt Count Lymph % (Auto) [place] % (Auto) Eos % (Auto) [place] # Seg Neutrophils % Seg Neuts % (Manual) Lymphocytes % (Manual) Seg Neutrophils # Seg Neutrophils # Man Lymphocytes # (Manual) APTT POC ABG pH ABG pH POC ABG pCO2 POC ABG pO2 ABG pO2 ABG HCO3 ABG Base Excess ABG Hemoglobin VBG pH Oxyhemoglobin Sodium Potassium Chloride Carbon Dioxide BUN Creatinine Glucose POC Glucose 207 H 365 H 308 H Lactic Acid Calcium AST ALT Alkaline Phosphatase CK-MB (CK-2) CK-MB (CK-2) Rel Index Total Protein Albumin TSH Urine WBC (Auto) Salicylates 04/15/17 04/15/17 04/15/17 21:00 22:18 23:12 WBC RBC Hgb Hct MCV MCH RDW Plt Count Lymph % (Auto) [place] % (Auto) Eos % (Auto) [place] # Seg Neutrophils % Seg Neuts % (Manual) Lymphocytes % (Manual) Seg Neutrophils # Seg Neutrophils # Man Lymphocytes # (Manual) APTT POC ABG pH ABG pH POC ABG pCO2 POC ABG pO2 ABG pO2 ABG HCO3 ABG Base Excess ABG Hemoglobin VBG pH Oxyhemoglobin Sodium Potassium Chloride Carbon Dioxide BUN Creatinine Glucose POC Glucose 407 H 287 H 325 H Lactic Acid Calcium AST ALT Alkaline Phosphatase CK-MB (CK-2) CK-MB (CK-2) Rel Index Total Protein Albumin TSH Urine WBC (Auto) Salicylates 04/16/17 04/16/17 04/16/17 05:30 10:07 14:26 WBC RBC Hgb Hct MCV MCH RDW Plt Count Lymph % (Auto) [place] % (Auto) Eos % (Auto) [place] # Seg Neutrophils % Seg Neuts % (Manual) Lymphocytes % (Manual) Seg Neutrophils # Seg Neutrophils # Man Lymphocytes # (Manual) APTT POC ABG pH ABG pH POC ABG pCO2 POC ABG pO2 ABG pO2 ABG HCO3 ABG Base Excess ABG Hemoglobin VBG pH Oxyhemoglobin Sodium Potassium Chloride Carbon Dioxide BUN Creatinine Glucose POC Glucose 304 H 217 H 344 H Lactic Acid Calcium AST ALT Alkaline Phosphatase CK-MB (CK-2) CK-MB (CK-2) Rel Index Total Protein Albumin TSH Urine WBC (Auto) Salicylates 04/16/17 04/17/17 04/17/17 21:25 05:12 14:19 WBC RBC Hgb Hct MCV MCH RDW Plt Count Lymph % (Auto) [place] % (Auto) Eos % (Auto) [place] # Seg Neutrophils % Seg Neuts % (Manual) Lymphocytes % (Manual) Seg Neutrophils # Seg Neutrophils # Man Lymphocytes # (Manual) APTT POC ABG pH ABG pH POC ABG pCO2 POC ABG pO2 ABG pO2 ABG HCO3 ABG Base Excess ABG Hemoglobin VBG pH Oxyhemoglobin Sodium Potassium Chloride Carbon Dioxide BUN Creatinine Glucose POC Glucose 305 H 233 H 324 H Lactic Acid Calcium AST ALT Alkaline Phosphatase CK-MB (CK-2) CK-MB (CK-2) Rel Index Total Protein Albumin TSH Urine WBC (Auto) Salicylates 04/17/17 04/18/17 04/18/17 21:42 06:21 14:08 WBC RBC Hgb Hct MCV MCH RDW Plt Count Lymph % (Auto) [place] % (Auto) Eos % (Auto) [place] # Seg Neutrophils % Seg Neuts % (Manual) Lymphocytes % (Manual) Seg Neutrophils # Seg Neutrophils # Man Lymphocytes # (Manual) APTT POC ABG pH ABG pH POC ABG pCO2 POC ABG pO2 ABG pO2 ABG HCO3 ABG Base Excess ABG Hemoglobin VBG pH Oxyhemoglobin Sodium Potassium Chloride Carbon Dioxide BUN Creatinine Glucose POC Glucose 270 H 308 H 290 H Lactic Acid Calcium AST ALT Alkaline Phosphatase CK-MB (CK-2) CK-MB (CK-2) Rel Index Total Protein Albumin TSH Urine WBC (Auto) Salicylates 04/18/17 04/19/17 04/19/17 21:50 05:20 13:59 WBC RBC Hgb Hct MCV MCH RDW Plt Count Lymph % (Auto) [place] % (Auto) Eos % (Auto) [place] # Seg Neutrophils % Seg Neuts % (Manual) Lymphocytes % (Manual) Seg Neutrophils # Seg Neutrophils # Man Lymphocytes # (Manual) APTT POC ABG pH ABG pH POC ABG pCO2 POC ABG pO2 ABG pO2 ABG HCO3 ABG Base Excess ABG Hemoglobin VBG pH Oxyhemoglobin Sodium Potassium Chloride Carbon Dioxide BUN Creatinine Glucose POC Glucose 167 H 372 H 321 H Lactic Acid Calcium AST ALT Alkaline Phosphatase CK-MB (CK-2) CK-MB (CK-2) Rel Index Total Protein Albumin TSH Urine WBC (Auto) Salicylates 04/19/17 04/20/17 04/20/17 21:16 14:18 21:34 WBC RBC Hgb Hct MCV MCH RDW Plt Count Lymph % (Auto) [place] % (Auto) Eos % (Auto) [place] # Seg Neutrophils % Seg Neuts % (Manual) Lymphocytes % (Manual) Seg Neutrophils # Seg Neutrophils # Man Lymphocytes # (Manual) APTT POC ABG pH ABG pH POC ABG pCO2 POC ABG pO2 ABG pO2 ABG HCO3 ABG Base Excess ABG Hemoglobin VBG pH Oxyhemoglobin Sodium Potassium Chloride Carbon Dioxide BUN Creatinine Glucose POC Glucose 182 H 218 H 121 H Lactic Acid Calcium AST ALT Alkaline Phosphatase CK-MB (CK-2) CK-MB (CK-2) Rel Index Total Protein Albumin TSH Urine WBC (Auto) Salicylates 04/21/17 04/21/17 04/21/17 00:08 05:16 12:41 WBC RBC Hgb Hct MCV MCH RDW Plt Count Lymph % (Auto) [place] % (Auto) Eos % (Auto) [place] # Seg Neutrophils % Seg Neuts % (Manual) Lymphocytes % (Manual) Seg Neutrophils # Seg Neutrophils # Man Lymphocytes # (Manual) APTT POC ABG pH ABG pH POC ABG pCO2 POC ABG pO2 ABG pO2 ABG HCO3 ABG Base Excess ABG Hemoglobin VBG pH Oxyhemoglobin Sodium Potassium Chloride Carbon Dioxide BUN Creatinine Glucose POC Glucose 128 H 120 H 216 H Lactic Acid Calcium AST ALT Alkaline Phosphatase CK-MB (CK-2) CK-MB (CK-2) Rel Index Total Protein Albumin TSH Urine WBC (Auto) Salicylates 04/21/17 04/22/17 04/22/17 23:40 14:12 23:38 WBC RBC Hgb Hct MCV MCH RDW Plt Count Lymph % (Auto) [place] % (Auto) Eos % (Auto) [place] # Seg Neutrophils % Seg Neuts % (Manual) Lymphocytes % (Manual) Seg Neutrophils # Seg Neutrophils # Man Lymphocytes # (Manual) APTT POC ABG pH ABG pH POC ABG pCO2 POC ABG pO2 ABG pO2 ABG HCO3 ABG Base Excess ABG Hemoglobin VBG pH Oxyhemoglobin Sodium Potassium Chloride Carbon Dioxide BUN Creatinine Glucose POC Glucose 157 H 242 H 117 H Lactic Acid Calcium AST ALT Alkaline Phosphatase CK-MB (CK-2) CK-MB (CK-2) Rel Index Total Protein Albumin TSH Urine WBC (Auto) Salicylates 04/23/17 04/23/17 04/24/17 05:18 14:01 03:24 WBC RBC Hgb Hct MCV MCH RDW Plt Count Lymph % (Auto) [place] % (Auto) Eos % (Auto) [place] # Seg Neutrophils % Seg Neuts % (Manual) Lymphocytes % (Manual) Seg Neutrophils # Seg Neutrophils # Man Lymphocytes # (Manual) APTT POC ABG pH ABG pH POC ABG pCO2 POC ABG pO2 ABG pO2 ABG HCO3 ABG Base Excess ABG Hemoglobin VBG pH Oxyhemoglobin Sodium Potassium Chloride Carbon Dioxide BUN Creatinine Glucose POC Glucose 163 H 57 L 177 H Lactic Acid Calcium AST ALT Alkaline Phosphatase CK-MB (CK-2) CK-MB (CK-2) Rel Index Total Protein Albumin TSH Urine WBC (Auto) Salicylates 04/24/17 04/24/17 04/24/17 04:00 04:00 06:33 WBC RBC Hgb 9.9 L Hct 30.0 L MCV 79 L MCH 26 L RDW 17.1 H Plt Count 625 H Lymph % (Auto) [place] % (Auto) 8.4 H Eos % (Auto) [place] # Seg Neutrophils % Seg Neuts % (Manual) Lymphocytes % (Manual) Seg Neutrophils # Seg Neutrophils # Man Lymphocytes # (Manual) APTT POC ABG pH ABG pH POC ABG pCO2 POC ABG pO2 ABG pO2 ABG HCO3 ABG Base Excess ABG Hemoglobin VBG pH Oxyhemoglobin Sodium 136 L Potassium Chloride 94.9 L Carbon Dioxide BUN 40 H Creatinine 0.6 L Glucose 176 H POC Glucose 230 H Lactic Acid Calcium AST 67 H ALT Alkaline Phosphatase 294 H CK-MB (CK-2) CK-MB (CK-2) Rel Index Total Protein 9.0 H Albumin 2.5 L TSH Urine WBC (Auto) Salicylates 04/24/17 04/25/17 04/25/17 13:50 00:22 02:55 WBC RBC 3.54 L Hgb 9.0 L Hct 27.9 L MCV 79 L MCH 26 L RDW 17.5 H Plt Count 574 H Lymph % (Auto) [place] % (Auto) 10.4 H Eos % (Auto) [place] # 1.0 H Seg Neutrophils % Seg Neuts % (Manual) Lymphocytes % (Manual) Seg Neutrophils # Seg Neutrophils # Man Lymphocytes # (Manual) APTT POC ABG pH ABG pH POC ABG pCO2 POC ABG pO2 ABG pO2 ABG HCO3 ABG Base Excess ABG Hemoglobin VBG pH Oxyhemoglobin Sodium Potassium Chloride Carbon Dioxide BUN Creatinine Glucose POC Glucose 116 H < 40 L Lactic Acid Calcium AST ALT Alkaline Phosphatase CK-MB (CK-2) CK-MB (CK-2) Rel Index Total Protein Albumin TSH Urine WBC (Auto) Salicylates 04/25/17 04/25/17 04/25/17 02:55 11:15 18:36 WBC RBC Hgb Hct MCV MCH RDW Plt Count Lymph % (Auto) [place] % (Auto) Eos % (Auto) [place] # Seg Neutrophils % Seg Neuts % (Manual) Lymphocytes % (Manual) Seg Neutrophils # Seg Neutrophils # Man Lymphocytes # (Manual) APTT POC ABG pH ABG pH POC ABG pCO2 POC ABG pO2 ABG pO2 ABG HCO3 ABG Base Excess ABG Hemoglobin VBG pH Oxyhemoglobin Sodium Potassium Chloride 96.2 L Carbon Dioxide BUN 39 H Creatinine 0.7 L Glucose 125 H POC Glucose 227 H 280 H Lactic Acid Calcium AST ALT Alkaline Phosphatase 247 H CK-MB (CK-2) CK-MB (CK-2) Rel Index Total Protein Albumin 2.7 L TSH Urine WBC (Auto) Salicylates 04/25/17 04/26/17 04/26/17 21:49 06:53 07:27 WBC RBC 3.61 L Hgb 9.1 L Hct 28.1 L MCV 78 L MCH 25 L RDW 17.4 H Plt Count 594 H Lymph % (Auto) [place] % (Auto) 9.2 H Eos % (Auto) [place] # 1.0 H Seg Neutrophils % 70.6 H Seg Neuts % (Manual) Lymphocytes % (Manual) Seg Neutrophils # Seg Neutrophils # Man Lymphocytes # (Manual) APTT POC ABG pH ABG pH POC ABG pCO2 POC ABG pO2 ABG pO2 ABG HCO3 ABG Base Excess ABG Hemoglobin VBG pH Oxyhemoglobin Sodium Potassium Chloride Carbon Dioxide BUN Creatinine Glucose POC Glucose 192 H 60 L Lactic Acid Calcium AST ALT Alkaline Phosphatase CK-MB (CK-2) CK-MB (CK-2) Rel Index Total Protein Albumin TSH Urine WBC (Auto) Salicylates 04/26/17 04/26/17 04/26/17 07:27 07:28 13:32 WBC RBC Hgb Hct MCV MCH RDW Plt Count Lymph % (Auto) [place] % (Auto) Eos % (Auto) [place] # Seg Neutrophils % Seg Neuts % (Manual) Lymphocytes % (Manual) Seg Neutrophils # Seg Neutrophils # Man Lymphocytes # (Manual) APTT POC ABG pH ABG pH POC ABG pCO2 POC ABG pO2 ABG pO2 ABG HCO3 ABG Base Excess ABG Hemoglobin VBG pH Oxyhemoglobin Sodium Potassium Chloride 95.0 L Carbon Dioxide BUN 42 H Creatinine 0.7 L Glucose 172 H POC Glucose 190 H 168 H Lactic Acid Calcium AST 56 H ALT Alkaline Phosphatase 274 H CK-MB (CK-2) CK-MB (CK-2) Rel Index Total Protein 8.9 H Albumin 2.7 L TSH Urine WBC (Auto) Salicylates 04/26/17 04/27/17 04/27/17 23:36 05:10 05:10 WBC RBC 3.49 L Hgb 8.7 L Hct 27.0 L MCV 77 L MCH 25 L RDW 17.4 H Plt Count 558 H Lymph % (Auto) [place] % (Auto) 9.6 H Eos % (Auto) [place] # Seg Neutrophils % Seg Neuts % (Manual) Lymphocytes % (Manual) Seg Neutrophils # Seg Neutrophils # Man Lymphocytes # (Manual) APTT POC ABG pH ABG pH POC ABG pCO2 POC ABG pO2 ABG pO2 ABG HCO3 ABG Base Excess ABG Hemoglobin VBG pH Oxyhemoglobin Sodium 133 L Potassium Chloride 93.5 L Carbon Dioxide BUN 40 H Creatinine 0.7 L Glucose 179 H POC Glucose 204 H Lactic Acid Calcium AST 73 H ALT 58 H Alkaline Phosphatase 294 H CK-MB (CK-2) CK-MB (CK-2) Rel Index Total Protein 8.7 H Albumin 2.4 L TSH Urine WBC (Auto) Salicylates 04/27/17 04/27/17 04/27/17 05:45 14:08 23:46 WBC RBC Hgb Hct MCV MCH RDW Plt Count Lymph % (Auto) [place] % (Auto) Eos % (Auto) [place] # Seg Neutrophils % Seg Neuts % (Manual) Lymphocytes % (Manual) Seg Neutrophils # Seg Neutrophils # Man Lymphocytes # (Manual) APTT POC ABG pH ABG pH POC ABG pCO2 POC ABG pO2 ABG pO2 ABG HCO3 ABG Base Excess ABG Hemoglobin VBG pH Oxyhemoglobin Sodium Potassium Chloride Carbon Dioxide BUN Creatinine Glucose POC Glucose 200 H 206 H 207 H Lactic Acid Calcium AST ALT Alkaline Phosphatase CK-MB (CK-2) CK-MB (CK-2) Rel Index Total Protein Albumin TSH Urine WBC (Auto) Salicylates 04/28/17 04/28/17 04/28/17 04:48 04:53 05:10 WBC RBC 3.48 L Hgb 8.8 L Hct 26.7 L MCV 77 L MCH 25 L RDW 17.0 H Plt Count 515 H Lymph % (Auto) [place] % (Auto) 8.4 H Eos % (Auto) [place] # Seg Neutrophils % 70.6 H Seg Neuts % (Manual) Lymphocytes % (Manual) Seg Neutrophils # Seg Neutrophils # Man Lymphocytes # (Manual) APTT POC ABG pH ABG pH POC ABG pCO2 POC ABG pO2 ABG pO2 ABG HCO3 ABG Base Excess ABG Hemoglobin VBG pH Oxyhemoglobin Sodium Potassium Chloride Carbon Dioxide BUN Creatinine Glucose POC Glucose 43 L 41 L Lactic Acid Calcium AST ALT Alkaline Phosphatase CK-MB (CK-2) CK-MB (CK-2) Rel Index Total Protein Albumin TSH Urine WBC (Auto) Salicylates 04/28/17 04/28/17 04/28/17 05:10 14:06 22:07 WBC RBC Hgb Hct MCV MCH RDW Plt Count Lymph % (Auto) [place] % (Auto) Eos % (Auto) [place] # Seg Neutrophils % Seg Neuts % (Manual) Lymphocytes % (Manual) Seg Neutrophils # Seg Neutrophils # Man Lymphocytes # (Manual) APTT POC ABG pH ABG pH POC ABG pCO2 POC ABG pO2 ABG pO2 ABG HCO3 ABG Base Excess ABG Hemoglobin VBG pH Oxyhemoglobin Sodium 136 L Potassium Chloride 95.2 L Carbon Dioxide BUN 42 H Creatinine Glucose 63 L POC Glucose 303 H 227 H Lactic Acid Calcium AST 45 H ALT Alkaline Phosphatase 271 H CK-MB (CK-2) CK-MB (CK-2) Rel Index Total Protein 8.9 H Albumin 2.5 L TSH Urine WBC (Auto) Salicylates 04/29/17 04/29/17 04/29/17 06:40 14:11 21:35 WBC RBC Hgb Hct MCV MCH RDW Plt Count Lymph % (Auto) [place] % (Auto) Eos % (Auto) [place] # Seg Neutrophils % Seg Neuts % (Manual) Lymphocytes % (Manual) Seg Neutrophils # Seg Neutrophils # Man Lymphocytes # (Manual) APTT POC ABG pH ABG pH POC ABG pCO2 POC ABG pO2 ABG pO2 ABG HCO3 ABG Base Excess ABG Hemoglobin VBG pH Oxyhemoglobin Sodium Potassium Chloride Carbon Dioxide BUN Creatinine Glucose POC Glucose 254 H 244 H 184 H Lactic Acid Calcium AST ALT Alkaline Phosphatase CK-MB (CK-2) CK-MB (CK-2) Rel Index Total Protein Albumin TSH Urine WBC (Auto) Salicylates 04/30/17 04/30/17 04/30/17 05:17 14:03 22:08 WBC RBC Hgb Hct MCV MCH RDW Plt Count Lymph % (Auto) [place] % (Auto) Eos % (Auto) [place] # Seg Neutrophils % Seg Neuts % (Manual) Lymphocytes % (Manual) Seg Neutrophils # Seg Neutrophils # Man Lymphocytes # (Manual) APTT POC ABG pH ABG pH POC ABG pCO2 POC ABG pO2 ABG pO2 ABG HCO3 ABG Base Excess ABG Hemoglobin VBG pH Oxyhemoglobin Sodium Potassium Chloride Carbon Dioxide BUN Creatinine Glucose POC Glucose 173 H 182 H 247 H Lactic Acid Calcium AST ALT Alkaline Phosphatase CK-MB (CK-2) CK-MB (CK-2) Rel Index Total Protein Albumin TSH Urine WBC (Auto) Salicylates 05/01/17 05/01/17 05/01/17 05:04 15:37 18:50 WBC RBC Hgb Hct MCV MCH RDW Plt Count Lymph % (Auto) [place] % (Auto) Eos % (Auto) [place] # Seg Neutrophils % Seg Neuts % (Manual) Lymphocytes % (Manual) Seg Neutrophils # Seg Neutrophils # Man Lymphocytes # (Manual) APTT POC ABG pH ABG pH POC ABG pCO2 POC ABG pO2 ABG pO2 ABG HCO3 ABG Base Excess ABG Hemoglobin VBG pH Oxyhemoglobin Sodium Potassium Chloride Carbon Dioxide BUN Creatinine Glucose POC Glucose 335 H 68 L 144 H Lactic Acid Calcium AST ALT Alkaline Phosphatase CK-MB (CK-2) CK-MB (CK-2) Rel Index Total Protein Albumin TSH Urine WBC (Auto) Salicylates 05/01/17 05/02/17 05/02/17 22:13 04:59 14:06 WBC RBC Hgb Hct MCV MCH RDW Plt Count Lymph % (Auto) [place] % (Auto) Eos % (Auto) [place] # Seg Neutrophils % Seg Neuts % (Manual) Lymphocytes % (Manual) Seg Neutrophils # Seg Neutrophils # Man Lymphocytes # (Manual) APTT POC ABG pH ABG pH POC ABG pCO2 POC ABG pO2 ABG pO2 ABG HCO3 ABG Base Excess ABG Hemoglobin VBG pH Oxyhemoglobin Sodium Potassium Chloride Carbon Dioxide BUN Creatinine Glucose POC Glucose 192 H 225 H 165 H Lactic Acid Calcium AST ALT Alkaline Phosphatase CK-MB (CK-2) CK-MB (CK-2) Rel Index Total Protein Albumin TSH Urine WBC (Auto) Salicylates 05/02/17 05/03/17 05/03/17 21:20 05:16 16:56 WBC RBC Hgb Hct MCV MCH RDW Plt Count Lymph % (Auto) [place] % (Auto) Eos % (Auto) [place] # Seg Neutrophils % Seg Neuts % (Manual) Lymphocytes % (Manual) Seg Neutrophils # Seg Neutrophils # Man Lymphocytes # (Manual) APTT POC ABG pH ABG pH POC ABG pCO2 POC ABG pO2 ABG pO2 ABG HCO3 ABG Base Excess ABG Hemoglobin VBG pH Oxyhemoglobin Sodium Potassium Chloride Carbon Dioxide BUN Creatinine Glucose POC Glucose 181 H 323 H 125 H Lactic Acid Calcium AST ALT Alkaline Phosphatase CK-MB (CK-2) CK-MB (CK-2) Rel Index Total Protein Albumin TSH Urine WBC (Auto) Salicylates 05/03/17 05/04/17 05/04/17 21:46 05:01 14:24 WBC RBC Hgb Hct MCV MCH RDW Plt Count Lymph % (Auto) [place] % (Auto) Eos % (Auto) [place] # Seg Neutrophils % Seg Neuts % (Manual) Lymphocytes % (Manual) Seg Neutrophils # Seg Neutrophils # Man Lymphocytes # (Manual) APTT POC ABG pH ABG pH POC ABG pCO2 POC ABG pO2 ABG pO2 ABG HCO3 ABG Base Excess ABG Hemoglobin VBG pH Oxyhemoglobin Sodium Potassium Chloride Carbon Dioxide BUN Creatinine Glucose POC Glucose 210 H 360 H 219 H Lactic Acid Calcium AST ALT Alkaline Phosphatase CK-MB (CK-2) CK-MB (CK-2) Rel Index Total Protein Albumin TSH Urine WBC (Auto) Salicylates 05/04/17 05/05/17 05/05/17 21:39 01:58 05:13 WBC RBC Hgb Hct MCV MCH RDW Plt Count Lymph % (Auto) [place] % (Auto) Eos % (Auto) [place] # Seg Neutrophils % Seg Neuts % (Manual) Lymphocytes % (Manual) Seg Neutrophils # Seg Neutrophils # Man Lymphocytes # (Manual) APTT POC ABG pH ABG pH POC ABG pCO2 POC ABG pO2 ABG pO2 ABG HCO3 ABG Base Excess ABG Hemoglobin VBG pH Oxyhemoglobin Sodium Potassium Chloride Carbon Dioxide BUN Creatinine Glucose POC Glucose 126 H 175 H 267 H Lactic Acid Calcium AST ALT Alkaline Phosphatase CK-MB (CK-2) CK-MB (CK-2) Rel Index Total Protein Albumin TSH Urine WBC (Auto) Salicylates 05/05/17 05/05/17 05/05/17 12:19 14:11 21:18 WBC RBC Hgb Hct MCV MCH RDW Plt Count Lymph % (Auto) [place] % (Auto) Eos % (Auto) [place] # Seg Neutrophils % Seg Neuts % (Manual) Lymphocytes % (Manual) Seg Neutrophils # Seg Neutrophils # Man Lymphocytes # (Manual) APTT POC ABG pH ABG pH POC ABG pCO2 POC ABG pO2 ABG pO2 ABG HCO3 ABG Base Excess ABG Hemoglobin VBG pH Oxyhemoglobin Sodium Potassium Chloride Carbon Dioxide BUN Creatinine Glucose POC Glucose 221 H 205 H 156 H Lactic Acid Calcium AST ALT Alkaline Phosphatase CK-MB (CK-2) CK-MB (CK-2) Rel Index Total Protein Albumin TSH Urine WBC (Auto) Salicylates 05/06/17 05/06/17 05/06/17 06:02 15:26 21:43 WBC RBC Hgb Hct MCV MCH RDW Plt Count Lymph % (Auto) [place] % (Auto) Eos % (Auto) [place] # Seg Neutrophils % Seg Neuts % (Manual) Lymphocytes % (Manual) Seg Neutrophils # Seg Neutrophils # Man Lymphocytes # (Manual) APTT POC ABG pH ABG pH POC ABG pCO2 POC ABG pO2 ABG pO2 ABG HCO3 ABG Base Excess ABG Hemoglobin VBG pH Oxyhemoglobin Sodium Potassium Chloride Carbon Dioxide BUN Creatinine Glucose POC Glucose 263 H 143 H 145 H Lactic Acid Calcium AST ALT Alkaline Phosphatase CK-MB (CK-2) CK-MB (CK-2) Rel Index Total Protein Albumin TSH Urine WBC (Auto) Salicylates 05/07/17 05/07/17 05/07/17 05:52 21:46 21:49 WBC RBC Hgb Hct MCV MCH RDW Plt Count Lymph % (Auto) [place] % (Auto) Eos % (Auto) [place] # Seg Neutrophils % Seg Neuts % (Manual) Lymphocytes % (Manual) Seg Neutrophils # Seg Neutrophils # Man Lymphocytes # (Manual) APTT POC ABG pH ABG pH POC ABG pCO2 POC ABG pO2 ABG pO2 ABG HCO3 ABG Base Excess ABG Hemoglobin VBG pH Oxyhemoglobin Sodium Potassium Chloride Carbon Dioxide BUN Creatinine Glucose POC Glucose 242 H < 40 L < 40 L Lactic Acid Calcium AST ALT Alkaline Phosphatase CK-MB (CK-2) CK-MB (CK-2) Rel Index Total Protein Albumin TSH Urine WBC (Auto) Salicylates 05/07/17 05/08/17 05/09/17 22:41 06:14 00:02 WBC RBC Hgb Hct MCV MCH RDW Plt Count Lymph % (Auto) [place] % (Auto) Eos % (Auto) [place] # Seg Neutrophils % Seg Neuts % (Manual) Lymphocytes % (Manual) Seg Neutrophils # Seg Neutrophils # Man Lymphocytes # (Manual) APTT POC ABG pH ABG pH POC ABG pCO2 POC ABG pO2 ABG pO2 ABG HCO3 ABG Base Excess ABG Hemoglobin VBG pH Oxyhemoglobin Sodium Potassium Chloride Carbon Dioxide BUN Creatinine Glucose POC Glucose 183 H 329 H 130 H Lactic Acid Calcium AST ALT Alkaline Phosphatase CK-MB (CK-2) CK-MB (CK-2) Rel Index Total Protein Albumin TSH Urine WBC (Auto) Salicylates 05/09/17 05/09/17 05/09/17 06:08 14:06 21:44 WBC RBC Hgb Hct MCV MCH RDW Plt Count Lymph % (Auto) [place] % (Auto) Eos % (Auto) [place] # Seg Neutrophils % Seg Neuts % (Manual) Lymphocytes % (Manual) Seg Neutrophils # Seg Neutrophils # Man Lymphocytes # (Manual) APTT POC ABG pH ABG pH POC ABG pCO2 POC ABG pO2 ABG pO2 ABG HCO3 ABG Base Excess ABG Hemoglobin VBG pH Oxyhemoglobin Sodium Potassium Chloride Carbon Dioxide BUN Creatinine Glucose POC Glucose 241 H 251 H 198 H Lactic Acid Calcium AST ALT Alkaline Phosphatase CK-MB (CK-2) CK-MB (CK-2) Rel Index Total Protein Albumin TSH Urine WBC (Auto) Salicylates 05/10/17 05:18 WBC RBC Hgb Hct MCV MCH RDW Plt Count Lymph % (Auto) [place] % (Auto) Eos % (Auto) [place] # Seg Neutrophils % Seg Neuts % (Manual) Lymphocytes % (Manual) Seg Neutrophils # Seg Neutrophils # Man Lymphocytes # (Manual) APTT POC ABG pH ABG pH POC ABG pCO2 POC ABG pO2 ABG pO2 ABG HCO3 ABG Base Excess ABG Hemoglobin VBG pH Oxyhemoglobin Sodium Potassium Chloride Carbon Dioxide BUN Creatinine Glucose POC Glucose 166 H Lactic Acid Calcium AST ALT Alkaline Phosphatase CK-MB (CK-2) CK-MB (CK-2) Rel Index Total Protein Albumin TSH Urine WBC (Auto) Salicylates
[2017-05-10] MEDS: LEVEMIR (NF) SUB-Q SCH (09:39)
[2017-05-10] MEDS: PEPCID PO SCH ×2 (09:39→21:47)
[2017-05-10] MEDS: HEPARIN SUB-Q SCH ×2 (09:39→21:47)
--- NOTE | 2017-05-10 16:44 | Progress Note ---
Assessment and Plan Assessment and plan: Persistently status. 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 Hospitalist Physical - Physical exam Narrative exam: Intubated and on mechanical ventilation. The patient appeared well nourished and normally developed. Vital signs as documented. Head exam is unremarkable. No scleral icterus . Neck is without jugular venous distension, thyromegaly, or carotid bruits. Lungs are clear to auscultation. Cardiac exam reveals regular rate and Rhythm. Abdominal exam reveals normal bowel sounds. Extremities are nonedematous and both femoral and pedal pulses are normal. RELIEF CAPTAIN: Comatose. Pupils are not dilated, but non reactive to light. - Constitutional Vitals: Temp Pulse Resp BP Pulse Ox 97.8 F 83 29 H 113/71 99 05/10/17 08:00 05/10/17 14:00 05/10/17 14:01 05/10/17 14:01 05/10/17 14:01 General appearance: Present: no acute distress Results - Labs CBC & Chem 7: 04/28/17 05:10 04/28/17 05:10 Labs: Laboratory Last Values WBC 9.3 K/mm3 (4.5-11.0) 04/28/17 05:10 RBC 3.48 M/mm3 (3.65-5.03) L 04/28/17 05:10 Hgb 8.8 gm/dl (11.8-15.2) L 04/28/17 05:10 Hct 26.7 % (35.5-45.6) L 04/28/17 05:10 MCV 77 fl (84-94) L 04/28/17 05:10 MCH 25 pg (28-32) L 04/28/17 05:10 MCHC 33 % (32-34) 04/28/17 05:10 RDW 17.0 % (13.2-15.2) H 04/28/17 05:10 Plt Count 515 K/mm3 (140-440) H 04/28/17 05:10 Lymph % (Auto) 18.4 % (13.4-35.0) 04/28/17 05:10 [place] % (Auto) 8.4 % (0.0-7.3) H 04/28/17 05:10 Eos % (Auto) 1.8 % (0.0-4.3) 04/28/17 05:10 Baso % (Auto) 0.8 % (0.0-1.8) 04/28/17 05:10 Lymph # 1.7 K/mm3 (1.2-5.4) 04/28/17 05:10 [place] # 0.8 K/mm3 (0.0-0.8) 04/28/17 05:10 Eos # 0.2 K/mm3 (0.0-0.4) 04/28/17 05:10 Baso # 0.1 K/mm3 (0.0-0.1) 04/28/17 05:10 Add Manual Diff Complete 01/10/17 04:30 Total Counted 100 01/10/17 04:30 Seg Neutrophils % 70.6 % (40.0-70.0) H 04/28/17 05:10 Seg Neuts % (Manual) 88.0 % (40.0-70.0) H 01/10/17 04:30 Band Neutrophils % 7.0 % 01/10/17 04:30 Lymphocytes % (Manual) 4.0 % (13.4-35.0) L 01/10/17 04:30 Reactive Lymphs % (Man) 0 % 01/10/17 04:30 Monocytes % (Manual) 1.0 % (0.0-7.3) 01/10/17 04:30 Eosinophils % (Manual) 0 % (0.0-4.3) 01/10/17 04:30 Basophils % (Manual) 0 % (0.0-1.8) 01/10/17 04:30 Metamyelocytes % 0 % 01/10/17 04:30 Myelocytes % 0 % 01/10/17 04:30 Promyelocytes % 0 % 01/10/17 04:30 Blast Cells % 0 % 01/10/17 04:30 Nucleated RBC % Not Reportable 01/10/17 04:30 Seg Neutrophils # 6.6 K/mm3 (1.8-7.7) 04/28/17 05:10 Seg Neutrophils # Man 21.2 K/mm3 (1.8-7.7) H 01/10/17 04:30 Band Neutrophils # 1.7 K/mm3 01/10/17 04:30 Lymphocytes # (Manual) 1.0 K/mm3 (1.2-5.4) L 01/10/17 04:30 Abs React Lymphs (Man) 0.0 K/mm3 01/10/17 04:30 Monocytes # (Manual) 0.2 K/mm3 (0.0-0.8) 01/10/17 04:30 Eosinophils # (Manual) 0.0 K/mm3 (0.0-0.4) 01/10/17 04:30 Basophils # (Manual) 0.0 K/mm3 (0.0-0.1) 01/10/17 04:30 Metamyelocytes # 0.0 K/mm3 01/10/17 04:30 Myelocytes # 0.0 K/mm3 01/10/17 04:30 Promyelocytes # 0.0 K/mm3 01/10/17 04:30 Blast Cells # 0.0 K/mm3 01/10/17 04:30 WBC Morphology Not Reportable 01/10/17 04:30 Hypersegmented Neuts Not Reportable 01/10/17 04:30 Hyposegmented Neuts Not Reportable 01/10/17 04:30 Hypogranular Neuts Not Reportable 01/10/17 04:30 Smudge Cells Not Reportable 01/10/17 04:30 Toxic Granulation Not Reportable 01/10/17 04:30 Toxic Vacuolation Not Reportable 01/10/17 04:30 Dohle Bodies Not Reportable 01/10/17 04:30 Pelger-Huet Anomaly Not Reportable 01/10/17 04:30 [place] Rods Not Reportable 01/10/17 04:30 Platelet Estimate Consistent w auto 01/10/17 04:30 Clumped Platelets Not Reportable 01/10/17 04:30 Plt Clumps, EDTA Not Reportable 01/10/17 04:30 Large Platelets Not Reportable 01/10/17 04:30 Giant Platelets Not Reportable 01/10/17 04:30 Platelet Satelliting Not Reportable 01/10/17 04:30 Plt Morphology Comment Not Reportable 01/10/17 04:30 RBC Morphology Not Reportable 01/10/17 04:30 Dimorphic RBCs Not Reportable 01/10/17 04:30 Polychromasia Not Reportable 01/10/17 04:30 Hypochromasia 1+ 01/10/17 04:30 Poikilocytosis Not Reportable 01/10/17 04:30 Anisocytosis Not Reportable 01/10/17 04:30 Microcytosis Not Reportable 01/10/17 04:30 Macrocytosis Not Reportable 01/10/17 04:30 Spherocytes Not Reportable 01/10/17 04:30 Pappenheimer Bodies Not Reportable 01/10/17 04:30 Sickle Cells Not Reportable 01/10/17 04:30 Target Cells Not Reportable 01/10/17 04:30 Tear Drop Cells Not Reportable 01/10/17 04:30 Ovalocytes Not Reportable 01/10/17 04:30 Helmet Cells Not Reportable 01/10/17 04:30 [place] Bodies Not Reportable 01/10/17 04:30 [place] Rings Not Reportable 01/10/17 04:30 [place] Cells Not Reportable 01/10/17 04:30 Bite Cells Not Reportable 01/10/17 04:30 Crenated Cell Not Reportable 01/10/17 04:30 Elliptocytes Not Reportable 01/10/17 04:30 Acanthocytes (Spur) Not Reportable 01/10/17 04:30 Rouleaux Not Reportable 01/10/17 04:30 Hemoglobin C Crystals Not Reportable 01/10/17 04:30 Schistocytes Not Reportable 01/10/17 04:30 Malaria parasites Not Reportable 01/10/17 04:30 [place] Bodies Not Reportable 01/10/17 04:30 Hem Pathologist Commnt No 01/10/17 04:30 PT 14.1 Sec. (12.2-14.9) 01/17/17 04:10 INR 1.04 (0.87-1.13) 01/17/17 04:10 APTT 36.6 Sec. (24.2-36.6) 01/17/17 04:10 POC ABG pH 7.442 (7.35-7.45) 01/31/17 18:55 ABG pH 7.420 pH Units (7.350-7.450) 01/17/17 04:35 POC ABG pCO2 32.8 (35-45) L 01/31/17 18:55 ABG pCO2 34.5 mm Hg 01/17/17 04:35 POC ABG pO2 82 (80-105) 01/31/17 18:55 ABG pO2 160.3 mm Hg (80.0-90.0) H 01/17/17 04:35 POC ABG HCO3 22.4 01/31/17 18:55 ABG HCO3 21.9 mmol/L (20.0-26.0) 01/17/17 04:35 POC ABG Total CO2 23 01/31/17 18:55 POC ABG O2 Sat 97 01/31/17 18:55 ABG O2 Saturation 99.0 % (95.0-99.0) 01/17/17 04:35 ABG O2 Content 11.1 (0.0-44) 01/17/17 04:35 POC ABG Base Excess -2 01/31/17 18:55 ABG Base Excess -2.3 mmol/L (-2.0-3.0) L 01/17/17 04:35 ABG Hemoglobin 7.9 gm/dl (14.0-18.0) L 01/17/17 04:35 ABG Carboxyhemoglobin 1.5 % (0.0-5.0) 01/17/17 04:35 ABG Methemoglobin 0.5 % (0.0-1.5) 01/17/17 04:35 VBG pH 7.284 (7.320-7.420) L 01/09/17 10:16 Oxyhemoglobin 97.1 % (95.0-99.0) 01/17/17 04:35 FiO2 25 % 01/31/17 18:55 Sodium 136 mmol/L (137-145) L 04/28/17 05:10 Potassium 4.5 mmol/L (3.6-5.0) 04/28/17 05:10 Chloride 95.2 mmol/L (98-107) L 04/28/17 05:10 Carbon Dioxide 27 mmol/L (22-30) 04/28/17 05:10 Anion Gap 18 mmol/L 04/28/17 05:10 BUN 42 mg/dL (9-20) H 04/28/17 05:10 Creatinine 0.9 mg/dL (0.8-1.5) 04/28/17 05:10 Estimated GFR > 60 ml/min 04/28/17 05:10 BUN/Creatinine Ratio 47 % 04/28/17 05:10 Glucose 63 mg/dL (75-100) L 04/28/17 05:10 POC Glucose 224 (70-105) H 05/10/17 14:44 Lactic Acid 0.80 mmol/L (0.7-2.0) 01/30/17 11:49 Calcium 9.1 mg/dL (8.4-10.2) 04/28/17 05:10 Phosphorus 3.10 mg/dL (2.5-4.5) 03/29/17 04:32 Magnesium 1.90 mg/dL (1.7-2.3) 03/29/17 04:32 Total Bilirubin 0.50 mg/dL (0.1-1.2) 04/28/17 05:10 AST 45 units/L (5-40) H 04/28/17 05:10 ALT 42 units/L (7-56) 04/28/17 05:10 Alkaline Phosphatase 271 units/L (35-129) H 04/28/17 05:10 Ammonia 35.0 umol/L (25-60) 01/09/17 10:16 Total Creatine Kinase 135 units/L (55-170) 01/09/17 10:16 CK-MB (CK-2) 7.1 ng/mL (0.0-4.0) H 01/09/17 10:16 CK-MB (CK-2) Rel Index 5.2 (0-4) H 01/09/17 10:16 Troponin T < 0.010 ng/mL (0.00-0.029) 01/09/17 10:16 NT-Pro-B Natriuret Pep 602.9 pg/mL (0-900) 01/09/17 10:16 Total Protein 8.9 g/dL (6.3-8.2) H 04/28/17 05:10 Albumin 2.5 g/dL (3.9-5) L 04/28/17 05:10 Albumin/Globulin Ratio 0.4 % 04/28/17 05:10 TSH 52.800 mlU/mL (0.270-4.200) H 01/09/17 10:16 Free T4 0.78 ng/dL (0.76-1.46) 01/09/17 10:16 Total Cortisol 54.8 mcg/dL () 01/09/17 16:19 Urine Color Yellow (Yellow) 01/28/17 17:52 Urine Turbidity Clear (Clear) 01/28/17 17:52 Urine pH 6.0 (5.0-7.0) 01/28/17 17:52 Ur Specific [place] 1.016 (1.003-1.030) 01/28/17 17:52 Urine Protein 100 mg/dl mg/dL (Negative) 01/28/17 17:52 Urine Glucose (UA) >=500 mg/dL (Negative) 01/28/17 17:52 Urine Ketones Neg mg/dL (Negative) 01/28/17 17:52 Urine Blood Sm (Negative) 01/28/17 17:52 Urine Nitrite Neg (Negative) 01/28/17 17:52 Urine Bilirubin Neg (Negative) 01/28/17 17:52 Urine Urobilinogen < 2.0 mg/dL (<2.0) 01/28/17 17:52 Ur Leukocyte Esterase Lg (Negative) 01/28/17 17:52 Urine WBC (Auto) > 182.0 /HPF (0.0-6.0) H 01/28/17 17:52 Urine RBC (Auto) 113.0 /HPF (0.0-6.0) 01/28/17 17:52 Urine Bacteria (Auto) 2+ /HPF (Negative) 01/28/17 17:52 Urine WBC Clumps 3+ /HPF 01/28/17 17:52 Urine Mucus Few /HPF 01/14/17 14:07 Urine Yeast ([place]) 3+ /HPF 01/14/17 14:07 Salicylates < 0.3 mg/dL (2.8-20.0) L 01/09/17 10:16 Urine Opiates Screen Presumptive negative 01/09/17 10:23 Urine Methadone Screen Presumptive negative 01/09/17 10:23 Acetaminophen < 15.0 ug/mL (10.0-30.0) 01/09/17 10:16 Ur Barbiturates Screen Presumptive negative 01/09/17 10:23 Ur Phencyclidine Scrn Presumptive negative 01/09/17 10:23 Ur Amphetamines Screen Presumptive negative 01/09/17 10:23 U Benzodiazepines Scrn Presumptive negative 01/09/17 10:23 Urine Cocaine Screen Presumptive negative 01/09/17 10:23 U Marijuana (THC) Screen Presumptive negative 01/09/17 10:23 Drugs of Abuse Note Disclamer 01/09/17 10:23 Plasma/Serum Alcohol < 0.01 gm% (0-0.07) 01/09/17 10:16
[2017-05-11] MEDS: SYNTHROID PO SCH (05:57)
[2017-05-11] MEDS: HumuLIN R SUB-Q SCH ×2 (05:57→21:47)
[2017-05-11] MEDS: LEVEMIR (NF) SUB-Q SCH (08:24)
--- NOTE | 2017-05-11 09:18 | Progress Note ---
Assessment and Plan 51 y/o male found down, concern for sepsis and now encephalopathic requiring mechanical ventilation. 1. continue supportive care 2. 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 I am aware that he is an AND but trach will not fix this problem and is not in my professional opinion the right thing to do for this patient. Most likely he will never be weaned from the vent and will remain in a persistent vegatative state. 3. Overall prognosis continues to be poor. 4. Will not check labs 5. Vitals should be qshift 6. This patient's possibility of awakening from this persistent vegatative is unlikely. The current status is that there has been paper work filed to obtain guardianship so that end of life decisions can be made. Supportive care is reasonable but checking daily labs and doing other invasive things to this patient I do not feel is morally and ethically appropriate. 7. Currently patient does not have IV access and is not requiring any medical therapy. Will not place another one at this time. 8. Per [place], went to court 05/03/17 for Guardianship. One has been appointed, awaiting to meet them. Subjective Date of service: 05/11/17 Principal diagnosis: Acute respiratory failure,encephalopathy Interval history: No acute events overnight. No change in mental state. Still no family present or available. Per Risk Management a guardian has been appointment. Awaiting to meet them. Objective Vital Signs - 12hr 05/10/17 05/10/17 05/10/17 21:28 21:31 22:00 Temperature Pulse Rate 75 75 74 Pulse Rate [ From Monitor] Respiratory 21 23 Rate Blood Pressure 117/74 117/74 O2 Sat by Pulse 100 100 Oximetry 05/10/17 05/10/17 05/10/17 23:00 23:32 23:49 Temperature 98.7 F Pulse Rate 77 74 Pulse Rate [ From Monitor] Respiratory 22 Rate Blood Pressure 117/74 117/74 O2 Sat by Pulse 99 100 Oximetry 05/11/17 05/11/17 05/11/17 00:00 01:00 02:00 Temperature Pulse Rate 74 72 66 Pulse Rate [ From Monitor] Respiratory 13 13 12 Rate Blood Pressure 111/73 111/73 111/73 O2 Sat by Pulse 100 100 100 Oximetry 05/11/17 05/11/17 05/11/17 03:00 04:00 04:11 Temperature 98.9 F Pulse Rate 72 76 76 Pulse Rate [ From Monitor] Respiratory 12 12 Rate Blood Pressure 111/73 113/69 113/69 O2 Sat by Pulse 100 97 100 Oximetry 05/11/17 05/11/17 05/11/17 05:00 06:00 08:25 Temperature Pulse Rate 75 79 Pulse Rate [ 79 From Monitor] Respiratory 14 21 16 Rate Blood Pressure 111/73 111/73 O2 Sat by Pulse 100 100 97 Oximetry Constitutional: no acute distress, alert, other (on vent) Eyes: non-icteric ENT: oropharynx moist, other (ETT in position) Neck: supple Effort: normal Ascultation: Bilateral: clear, diminished breath sounds Cardiovascular: regular rate and rhythm (no mrg) Gastrointestinal: normoactive bowel sounds, soft, non-tender, non-distended Integumentary: normal Extremities: no cyanosis, no edema, pink and warm Neurologic: pupils equal and round, other (not following commands,mild response to pain) Psychiatric: other (unable to obtain) CBC and BMP: 04/28/17 05:10 04/28/17 05:10 ABG, PT/INR, D-dimer: ABG POC ABG pH 7.442 (7.35-7.45) 01/31/17 18:55 ABG pH 7.420 pH Units (7.350-7.450) 01/17/17 04:35 POC ABG pCO2 32.8 (35-45) L 01/31/17 18:55 ABG pCO2 34.5 mm Hg 01/17/17 04:35 POC ABG pO2 82 (80-105) 01/31/17 18:55 ABG pO2 160.3 mm Hg (80.0-90.0) H 01/17/17 04:35 POC ABG HCO3 22.4 01/31/17 18:55 POC ABG Total CO2 23 01/31/17 18:55 POC ABG O2 Sat 97 01/31/17 18:55 ABG O2 Saturation 99.0 % (95.0-99.0) 01/17/17 04:35 PT/INR, D-dimer PT 14.1 Sec. (12.2-14.9) 01/17/17 04:10 INR 1.04 (0.87-1.13) 01/17/17 04:10 Abnormal lab findings: Abnormal Labs 01/09/17 01/09/17 01/09/17 10:16 10:16 10:16 WBC RBC Hgb 9.7 L Hct 28.4 L MCV 76 L MCH 26 L RDW 17.2 H Plt Count 448 H Lymph % (Auto) [place] % (Auto) Eos % (Auto) [place] # Seg Neutrophils % 79.5 H Seg Neuts % (Manual) Lymphocytes % (Manual) Seg Neutrophils # Seg Neutrophils # Man Lymphocytes # (Manual) APTT 39.6 H POC ABG pH ABG pH POC ABG pCO2 POC ABG pO2 ABG pO2 ABG HCO3 ABG Base Excess ABG Hemoglobin VBG pH Oxyhemoglobin Sodium 132 L Potassium Chloride 96.7 L Carbon Dioxide 21 L BUN 34 H Creatinine Glucose POC Glucose Lactic Acid Calcium 8.3 L AST ALT Alkaline Phosphatase 151 H CK-MB (CK-2) 7.1 H CK-MB (CK-2) Rel Index 5.2 H Total Protein Albumin 3.3 L TSH Urine WBC (Auto) Salicylates 01/09/17 01/09/17 01/09/17 10:16 10:16 10:16 WBC RBC Hgb Hct MCV MCH RDW Plt Count Lymph % (Auto) [place] % (Auto) Eos % (Auto) [place] # Seg Neutrophils % Seg Neuts % (Manual) Lymphocytes % (Manual) Seg Neutrophils # Seg Neutrophils # Man Lymphocytes # (Manual) APTT POC ABG pH ABG pH POC ABG pCO2 POC ABG pO2 ABG pO2 ABG HCO3 ABG Base Excess ABG Hemoglobin VBG pH 7.284 L Oxyhemoglobin Sodium Potassium Chloride Carbon Dioxide BUN Creatinine Glucose POC Glucose Lactic Acid Calcium AST ALT Alkaline Phosphatase CK-MB (CK-2) CK-MB (CK-2) Rel Index Total Protein Albumin TSH 52.800 H Urine WBC (Auto) Salicylates < 0.3 L 01/09/17 01/09/17 01/09/17 10:23 11:14 12:49 WBC RBC Hgb Hct MCV MCH RDW Plt Count Lymph % (Auto) [place] % (Auto) Eos % (Auto) [place] # Seg Neutrophils % Seg Neuts % (Manual) Lymphocytes % (Manual) Seg Neutrophils # Seg Neutrophils # Man Lymphocytes # (Manual) APTT POC ABG pH ABG pH POC ABG pCO2 POC ABG pO2 643 H ABG pO2 ABG HCO3 ABG Base Excess ABG Hemoglobin VBG pH Oxyhemoglobin Sodium Potassium Chloride Carbon Dioxide BUN Creatinine Glucose POC Glucose < 40 L Lactic Acid Calcium AST ALT Alkaline Phosphatase CK-MB (CK-2) CK-MB (CK-2) Rel Index Total Protein Albumin TSH Urine WBC (Auto) 61.0 H Salicylates 01/09/17 01/09/17 01/09/17 13:13 14:21 15:09 WBC RBC Hgb Hct MCV MCH RDW Plt Count Lymph % (Auto) [place] % (Auto) Eos % (Auto) [place] # Seg Neutrophils % Seg Neuts % (Manual) Lymphocytes % (Manual) Seg Neutrophils # Seg Neutrophils # Man Lymphocytes # (Manual) APTT POC ABG pH ABG pH POC ABG pCO2 POC ABG pO2 ABG pO2 ABG HCO3 ABG Base Excess ABG Hemoglobin VBG pH Oxyhemoglobin Sodium Potassium Chloride Carbon Dioxide BUN Creatinine Glucose POC Glucose 128 H 65 L 120 H Lactic Acid Calcium AST ALT Alkaline Phosphatase CK-MB (CK-2) CK-MB (CK-2) Rel Index Total Protein Albumin TSH Urine WBC (Auto) Salicylates 01/09/17 01/09/17 01/10/17 16:28 17:14 04:30 WBC 24.1 H RBC 3.38 L Hgb 8.5 L Hct 26.0 L MCV 77 L MCH 25 L RDW 17.9 H Plt Count 474 H Lymph % (Auto) [place] % (Auto) Eos % (Auto) [place] # Seg Neutrophils % Seg Neuts % (Manual) 88.0 H Lymphocytes % (Manual) 4.0 L Seg Neutrophils # Seg Neutrophils # Man 21.2 H Lymphocytes # (Manual) 1.0 L APTT POC ABG pH ABG pH POC ABG pCO2 POC ABG pO2 ABG pO2 ABG HCO3 ABG Base Excess ABG Hemoglobin VBG pH Oxyhemoglobin Sodium Potassium Chloride Carbon Dioxide BUN Creatinine Glucose POC Glucose 44 L 112 H Lactic Acid Calcium AST ALT Alkaline Phosphatase CK-MB (CK-2) CK-MB (CK-2) Rel Index Total Protein Albumin TSH Urine WBC (Auto) Salicylates 01/10/17 01/10/17 01/10/17 04:30 05:41 05:45 WBC RBC Hgb Hct MCV MCH RDW Plt Count Lymph % (Auto) [place] % (Auto) Eos % (Auto) [place] # Seg Neutrophils % Seg Neuts % (Manual) Lymphocytes % (Manual) Seg Neutrophils # Seg Neutrophils # Man Lymphocytes # (Manual) APTT POC ABG pH ABG pH POC ABG pCO2 26.6 L POC ABG pO2 207 H ABG pO2 ABG HCO3 ABG Base Excess ABG Hemoglobin VBG pH Oxyhemoglobin Sodium Potassium Chloride Carbon Dioxide 17 L BUN 27 H Creatinine Glucose POC Glucose 68 L Lactic Acid Calcium 7.5 L AST ALT Alkaline Phosphatase CK-MB (CK-2) CK-MB (CK-2) Rel Index Total Protein Albumin TSH Urine WBC (Auto) Salicylates 01/10/17 01/10/17 01/10/17 07:47 10:50 13:41 WBC RBC Hgb Hct MCV MCH RDW Plt Count Lymph % (Auto) [place] % (Auto) Eos % (Auto) [place] # Seg Neutrophils % Seg Neuts % (Manual) Lymphocytes % (Manual) Seg Neutrophils # Seg Neutrophils # Man Lymphocytes # (Manual) APTT POC ABG pH ABG pH POC ABG pCO2 POC ABG pO2 ABG pO2 ABG HCO3 ABG Base Excess ABG Hemoglobin VBG pH Oxyhemoglobin Sodium Potassium Chloride Carbon Dioxide BUN Creatinine Glucose POC Glucose 148 H 165 H 114 H Lactic Acid Calcium AST ALT Alkaline Phosphatase CK-MB (CK-2) CK-MB (CK-2) Rel Index Total Protein Albumin TSH Urine WBC (Auto) Salicylates 01/10/17 01/10/17 01/10/17 20:20 21:39 23:24 WBC RBC Hgb Hct MCV MCH RDW Plt Count Lymph % (Auto) [place] % (Auto) Eos % (Auto) [place] # Seg Neutrophils % Seg Neuts % (Manual) Lymphocytes % (Manual) Seg Neutrophils # Seg Neutrophils # Man Lymphocytes # (Manual) APTT POC ABG pH ABG pH POC ABG pCO2 POC ABG pO2 ABG pO2 ABG HCO3 ABG Base Excess ABG Hemoglobin VBG pH Oxyhemoglobin Sodium Potassium Chloride Carbon Dioxide BUN Creatinine Glucose POC Glucose 150 H 175 H 155 H Lactic Acid Calcium AST ALT Alkaline Phosphatase CK-MB (CK-2) CK-MB (CK-2) Rel Index Total Protein Albumin TSH Urine WBC (Auto) Salicylates 01/11/17 01/11/17 01/11/17 00:19 04:06 05:20 WBC 15.2 H RBC 3.40 L Hgb 8.9 L Hct 26.3 L MCV 78 L MCH 26 L RDW 18.6 H Plt Count 462 H Lymph % (Auto) 13.2 L [place] % (Auto) Eos % (Auto) [place] # Seg Neutrophils % 80.8 H Seg Neuts % (Manual) Lymphocytes % (Manual) Seg Neutrophils # 12.3 H Seg Neutrophils # Man Lymphocytes # (Manual) APTT POC ABG pH 7.463 H ABG pH POC ABG pCO2 26.2 L POC ABG pO2 185 H ABG pO2 ABG HCO3 ABG Base Excess ABG Hemoglobin VBG pH Oxyhemoglobin Sodium Potassium Chloride Carbon Dioxide BUN Creatinine Glucose POC Glucose 163 H Lactic Acid Calcium AST ALT Alkaline Phosphatase CK-MB (CK-2) CK-MB (CK-2) Rel Index Total Protein Albumin TSH Urine WBC (Auto) Salicylates 01/11/17 01/11/17 01/11/17 05:20 06:21 07:57 WBC RBC Hgb Hct MCV MCH RDW Plt Count Lymph % (Auto) [place] % (Auto) Eos % (Auto) [place] # Seg Neutrophils % Seg Neuts % (Manual) Lymphocytes % (Manual) Seg Neutrophils # Seg Neutrophils # Man Lymphocytes # (Manual) APTT POC ABG pH ABG pH POC ABG pCO2 POC ABG pO2 ABG pO2 ABG HCO3 ABG Base Excess ABG Hemoglobin VBG pH Oxyhemoglobin Sodium Potassium 3.4 L Chloride 111.5 H Carbon Dioxide 17 L BUN Creatinine Glucose 147 H POC Glucose 139 H 188 H Lactic Acid Calcium 8.0 L AST ALT Alkaline Phosphatase CK-MB (CK-2) CK-MB (CK-2) Rel Index Total Protein Albumin TSH Urine WBC (Auto) Salicylates 01/11/17 01/11/17 01/11/17 11:46 16:50 23:15 WBC RBC Hgb Hct MCV MCH RDW Plt Count Lymph % (Auto) [place] % (Auto) Eos % (Auto) [place] # Seg Neutrophils % Seg Neuts % (Manual) Lymphocytes % (Manual) Seg Neutrophils # Seg Neutrophils # Man Lymphocytes # (Manual) APTT POC ABG pH ABG pH POC ABG pCO2 POC ABG pO2 ABG pO2 ABG HCO3 ABG Base Excess ABG Hemoglobin VBG pH Oxyhemoglobin Sodium Potassium Chloride Carbon Dioxide BUN Creatinine Glucose POC Glucose 199 H 235 H 155 H Lactic Acid Calcium AST ALT Alkaline Phosphatase CK-MB (CK-2) CK-MB (CK-2) Rel Index Total Protein Albumin TSH Urine WBC (Auto) Salicylates 01/12/17 01/12/17 01/12/17 05:02 06:56 14:50 WBC RBC Hgb Hct MCV MCH RDW Plt Count Lymph % (Auto) [place] % (Auto) Eos % (Auto) [place] # Seg Neutrophils % Seg Neuts % (Manual) Lymphocytes % (Manual) Seg Neutrophils # Seg Neutrophils # Man Lymphocytes # (Manual) APTT POC ABG pH ABG pH POC ABG pCO2 28.0 L POC ABG pO2 178 H ABG pO2 ABG HCO3 ABG Base Excess ABG Hemoglobin VBG pH Oxyhemoglobin Sodium Potassium Chloride Carbon Dioxide BUN Creatinine Glucose POC Glucose 119 H 164 H Lactic Acid Calcium AST ALT Alkaline Phosphatase CK-MB (CK-2) CK-MB (CK-2) Rel Index Total Protein Albumin TSH Urine WBC (Auto) Salicylates 01/13/17 01/13/17 01/13/17 03:37 03:37 04:26 WBC RBC 3.61 L Hgb 9.3 L Hct 28.0 L MCV 78 L MCH 26 L RDW 18.2 H Plt Count Lymph % (Auto) [place] % (Auto) Eos % (Auto) [place] # Seg Neutrophils % Seg Neuts % (Manual) Lymphocytes % (Manual) Seg Neutrophils # Seg Neutrophils # Man Lymphocytes # (Manual) APTT POC ABG pH 7.485 H ABG pH POC ABG pCO2 25.4 L POC ABG pO2 73 L ABG pO2 ABG HCO3 ABG Base Excess ABG Hemoglobin VBG pH Oxyhemoglobin Sodium Potassium Chloride 112.4 H Carbon Dioxide 19 L BUN Creatinine Glucose 118 H POC Glucose Lactic Acid Calcium 8.0 L AST ALT Alkaline Phosphatase CK-MB (CK-2) CK-MB (CK-2) Rel Index Total Protein Albumin TSH Urine WBC (Auto) Salicylates 01/13/17 01/13/17 01/13/17 06:15 11:50 17:31 WBC RBC Hgb Hct MCV MCH RDW Plt Count Lymph % (Auto) [place] % (Auto) Eos % (Auto) [place] # Seg Neutrophils % Seg Neuts % (Manual) Lymphocytes % (Manual) Seg Neutrophils # Seg Neutrophils # Man Lymphocytes # (Manual) APTT POC ABG pH ABG pH POC ABG pCO2 POC ABG pO2 ABG pO2 ABG HCO3 ABG Base Excess ABG Hemoglobin VBG pH Oxyhemoglobin Sodium Potassium Chloride Carbon Dioxide BUN Creatinine Glucose POC Glucose 116 H 171 H 203 H Lactic Acid Calcium AST ALT Alkaline Phosphatase CK-MB (CK-2) CK-MB (CK-2) Rel Index Total Protein Albumin TSH Urine WBC (Auto) Salicylates 01/14/17 01/14/17 01/14/17 00:02 04:50 04:50 WBC RBC 3.32 L Hgb 8.5 L Hct 26.1 L MCV 79 L MCH 26 L RDW 18.2 H Plt Count Lymph % (Auto) [place] % (Auto) 9.0 H Eos % (Auto) [place] # Seg Neutrophils % Seg Neuts % (Manual) Lymphocytes % (Manual) Seg Neutrophils # Seg Neutrophils # Man Lymphocytes # (Manual) APTT POC ABG pH ABG pH POC ABG pCO2 POC ABG pO2 ABG pO2 ABG HCO3 ABG Base Excess ABG Hemoglobin VBG pH Oxyhemoglobin Sodium Potassium Chloride 112.5 H Carbon Dioxide BUN Creatinine Glucose 149 H POC Glucose 157 H Lactic Acid Calcium 8.1 L AST ALT Alkaline Phosphatase CK-MB (CK-2) CK-MB (CK-2) Rel Index Total Protein Albumin TSH Urine WBC (Auto) Salicylates 01/14/17 01/14/17 01/14/17 05:10 11:27 14:07 WBC RBC Hgb Hct MCV MCH RDW Plt Count Lymph % (Auto) [place] % (Auto) Eos % (Auto) [place] # Seg Neutrophils % Seg Neuts % (Manual) Lymphocytes % (Manual) Seg Neutrophils # Seg Neutrophils # Man Lymphocytes # (Manual) APTT POC ABG pH ABG pH POC ABG pCO2 POC ABG pO2 ABG pO2 ABG HCO3 ABG Base Excess ABG Hemoglobin VBG pH Oxyhemoglobin Sodium Potassium Chloride Carbon Dioxide BUN Creatinine Glucose POC Glucose 176 H 147 H Lactic Acid Calcium AST ALT Alkaline Phosphatase CK-MB (CK-2) CK-MB (CK-2) Rel Index Total Protein Albumin TSH Urine WBC (Auto) 53.0 H Salicylates 01/14/17 01/15/17 01/15/17 16:52 00:04 05:26 WBC RBC Hgb Hct MCV MCH RDW Plt Count Lymph % (Auto) [place] % (Auto) Eos % (Auto) [place] # Seg Neutrophils % Seg Neuts % (Manual) Lymphocytes % (Manual) Seg Neutrophils # Seg Neutrophils # Man Lymphocytes # (Manual) APTT POC ABG pH ABG pH POC ABG pCO2 POC ABG pO2 ABG pO2 ABG HCO3 ABG Base Excess ABG Hemoglobin VBG pH Oxyhemoglobin Sodium Potassium Chloride Carbon Dioxide BUN Creatinine Glucose POC Glucose 131 H 193 H 215 H Lactic Acid Calcium AST ALT Alkaline Phosphatase CK-MB (CK-2) CK-MB (CK-2) Rel Index Total Protein Albumin TSH Urine WBC (Auto) Salicylates 01/15/17 01/15/17 01/15/17 11:49 17:47 21:33 WBC RBC Hgb Hct MCV MCH RDW Plt Count Lymph % (Auto) [place] % (Auto) Eos % (Auto) [place] # Seg Neutrophils % Seg Neuts % (Manual) Lymphocytes % (Manual) Seg Neutrophils # Seg Neutrophils # Man Lymphocytes # (Manual) APTT POC ABG pH ABG pH POC ABG pCO2 POC ABG pO2 ABG pO2 ABG HCO3 ABG Base Excess ABG Hemoglobin VBG pH Oxyhemoglobin Sodium Potassium Chloride Carbon Dioxide BUN Creatinine Glucose POC Glucose 121 H 211 H 275 H Lactic Acid Calcium AST ALT Alkaline Phosphatase CK-MB (CK-2) CK-MB (CK-2) Rel Index Total Protein Albumin TSH Urine WBC (Auto) Salicylates 01/16/17 01/16/17 01/16/17 04:30 05:28 13:45 WBC RBC Hgb Hct MCV MCH RDW Plt Count Lymph % (Auto) [place] % (Auto) Eos % (Auto) [place] # Seg Neutrophils % Seg Neuts % (Manual) Lymphocytes % (Manual) Seg Neutrophils # Seg Neutrophils # Man Lymphocytes # (Manual) APTT POC ABG pH ABG pH 7.457 H POC ABG pCO2 POC ABG pO2 ABG pO2 55.1 L ABG HCO3 19.4 L ABG Base Excess -4.0 L ABG Hemoglobin 6.8 L VBG pH Oxyhemoglobin 94.9 L Sodium Potassium Chloride Carbon Dioxide BUN Creatinine Glucose POC Glucose 271 H 236 H Lactic Acid Calcium AST ALT Alkaline Phosphatase CK-MB (CK-2) CK-MB (CK-2) Rel Index Total Protein Albumin TSH Urine WBC (Auto) Salicylates 01/16/17 01/17/17 01/17/17 21:39 04:10 04:10 WBC 4.4 L RBC 2.98 L Hgb 7.7 L Hct 23.3 L MCV 78 L MCH 26 L RDW 18.1 H Plt Count Lymph % (Auto) [place] % (Auto) Eos % (Auto) [place] # Seg Neutrophils % Seg Neuts % (Manual) Lymphocytes % (Manual) Seg Neutrophils # Seg Neutrophils # Man Lymphocytes # (Manual) APTT POC ABG pH ABG pH POC ABG pCO2 POC ABG pO2 ABG pO2 ABG HCO3 ABG Base Excess ABG Hemoglobin VBG pH Oxyhemoglobin Sodium Potassium 3.3 L Chloride 108.7 H Carbon Dioxide 20 L BUN 8 L Creatinine Glucose 202 H POC Glucose 258 H Lactic Acid Calcium 7.6 L AST ALT Alkaline Phosphatase CK-MB (CK-2) CK-MB (CK-2) Rel Index Total Protein Albumin TSH Urine WBC (Auto) Salicylates 01/17/17 01/17/17 01/17/17 04:35 12:23 16:01 WBC RBC Hgb Hct MCV MCH RDW Plt Count Lymph % (Auto) [place] % (Auto) Eos % (Auto) [place] # Seg Neutrophils % Seg Neuts % (Manual) Lymphocytes % (Manual) Seg Neutrophils # Seg Neutrophils # Man Lymphocytes # (Manual) APTT POC ABG pH ABG pH POC ABG pCO2 POC ABG pO2 ABG pO2 160.3 H ABG HCO3 ABG Base Excess -2.3 L ABG Hemoglobin 7.9 L VBG pH Oxyhemoglobin Sodium Potassium Chloride Carbon Dioxide BUN Creatinine Glucose POC Glucose 321 H 239 H Lactic Acid Calcium AST ALT Alkaline Phosphatase CK-MB (CK-2) CK-MB (CK-2) Rel Index Total Protein Albumin TSH Urine WBC (Auto) Salicylates 01/18/17 01/18/17 01/18/17 05:07 12:09 17:54 WBC RBC Hgb Hct MCV MCH RDW Plt Count Lymph % (Auto) [place] % (Auto) Eos % (Auto) [place] # Seg Neutrophils % Seg Neuts % (Manual) Lymphocytes % (Manual) Seg Neutrophils # Seg Neutrophils # Man Lymphocytes # (Manual) APTT POC ABG pH ABG pH POC ABG pCO2 POC ABG pO2 ABG pO2 ABG HCO3 ABG Base Excess ABG Hemoglobin VBG pH Oxyhemoglobin Sodium Potassium Chloride Carbon Dioxide BUN Creatinine Glucose POC Glucose 155 H 203 H 132 H Lactic Acid Calcium AST ALT Alkaline Phosphatase CK-MB (CK-2) CK-MB (CK-2) Rel Index Total Protein Albumin TSH Urine WBC (Auto) Salicylates 01/18/17 01/19/17 01/19/17 23:43 04:28 12:11 WBC RBC Hgb Hct MCV MCH RDW Plt Count Lymph % (Auto) [place] % (Auto) Eos % (Auto) [place] # Seg Neutrophils % Seg Neuts % (Manual) Lymphocytes % (Manual) Seg Neutrophils # Seg Neutrophils # Man Lymphocytes # (Manual) APTT POC ABG pH ABG pH POC ABG pCO2 POC ABG pO2 ABG pO2 ABG HCO3 ABG Base Excess ABG Hemoglobin VBG pH Oxyhemoglobin Sodium Potassium Chloride Carbon Dioxide BUN Creatinine Glucose POC Glucose 125 H 182 H 153 H Lactic Acid Calcium AST ALT Alkaline Phosphatase CK-MB (CK-2) CK-MB (CK-2) Rel Index Total Protein Albumin TSH Urine WBC (Auto) Salicylates 01/19/17 01/20/17 01/20/17 17:23 00:12 05:44 WBC RBC Hgb Hct MCV MCH RDW Plt Count Lymph % (Auto) [place] % (Auto) Eos % (Auto) [place] # Seg Neutrophils % Seg Neuts % (Manual) Lymphocytes % (Manual) Seg Neutrophils # Seg Neutrophils # Man Lymphocytes # (Manual) APTT POC ABG pH ABG pH POC ABG pCO2 POC ABG pO2 ABG pO2 ABG HCO3 ABG Base Excess ABG Hemoglobin VBG pH Oxyhemoglobin Sodium Potassium Chloride Carbon Dioxide BUN Creatinine Glucose POC Glucose 66 L 139 H 176 H Lactic Acid Calcium AST ALT Alkaline Phosphatase CK-MB (CK-2) CK-MB (CK-2) Rel Index Total Protein Albumin TSH Urine WBC (Auto) Salicylates 01/20/17 01/20/17 01/20/17 11:48 17:42 23:43 WBC RBC Hgb Hct MCV MCH RDW Plt Count Lymph % (Auto) [place] % (Auto) Eos % (Auto) [place] # Seg Neutrophils % Seg Neuts % (Manual) Lymphocytes % (Manual) Seg Neutrophils # Seg Neutrophils # Man Lymphocytes # (Manual) APTT POC ABG pH ABG pH POC ABG pCO2 POC ABG pO2 ABG pO2 ABG HCO3 ABG Base Excess ABG Hemoglobin VBG pH Oxyhemoglobin Sodium Potassium Chloride Carbon Dioxide BUN Creatinine Glucose POC Glucose 218 H 132 H 178 H Lactic Acid Calcium AST ALT Alkaline Phosphatase CK-MB (CK-2) CK-MB (CK-2) Rel Index Total Protein Albumin TSH Urine WBC (Auto) Salicylates 01/21/17 01/21/17 01/21/17 05:34 11:17 23:37 WBC RBC Hgb Hct MCV MCH RDW Plt Count Lymph % (Auto) [place] % (Auto) Eos % (Auto) [place] # Seg Neutrophils % Seg Neuts % (Manual) Lymphocytes % (Manual) Seg Neutrophils # Seg Neutrophils # Man Lymphocytes # (Manual) APTT POC ABG pH ABG pH POC ABG pCO2 POC ABG pO2 ABG pO2 ABG HCO3 ABG Base Excess ABG Hemoglobin VBG pH Oxyhemoglobin Sodium Potassium Chloride Carbon Dioxide BUN Creatinine Glucose POC Glucose 106 H 213 H 140 H Lactic Acid Calcium AST ALT Alkaline Phosphatase CK-MB (CK-2) CK-MB (CK-2) Rel Index Total Protein Albumin TSH Urine WBC (Auto) Salicylates 01/22/17 01/22/17 01/22/17 04:00 04:00 04:58 WBC RBC 3.26 L Hgb 8.3 L Hct 25.5 L MCV 78 L MCH 25 L RDW 17.9 H Plt Count Lymph % (Auto) [place] % (Auto) 7.9 H Eos % (Auto) 6.2 H [place] # Seg Neutrophils % Seg Neuts % (Manual) Lymphocytes % (Manual) Seg Neutrophils # Seg Neutrophils # Man Lymphocytes # (Manual) APTT POC ABG pH ABG pH POC ABG pCO2 POC ABG pO2 ABG pO2 ABG HCO3 ABG Base Excess ABG Hemoglobin VBG pH Oxyhemoglobin Sodium Potassium Chloride 95.5 L Carbon Dioxide 31 H D BUN Creatinine Glucose 134 H POC Glucose 146 H Lactic Acid Calcium AST 44 H ALT Alkaline Phosphatase 379 H CK-MB (CK-2) CK-MB (CK-2) Rel Index Total Protein Albumin 2.7 L TSH Urine WBC (Auto) Salicylates 01/22/17 01/22/17 01/22/17 12:12 18:12 23:39 WBC RBC Hgb Hct MCV MCH RDW Plt Count Lymph % (Auto) [place] % (Auto) Eos % (Auto) [place] # Seg Neutrophils % Seg Neuts % (Manual) Lymphocytes % (Manual) Seg Neutrophils # Seg Neutrophils # Man Lymphocytes # (Manual) APTT POC ABG pH ABG pH POC ABG pCO2 POC ABG pO2 ABG pO2 ABG HCO3 ABG Base Excess ABG Hemoglobin VBG pH Oxyhemoglobin Sodium Potassium Chloride Carbon Dioxide BUN Creatinine Glucose POC Glucose 255 H 182 H 134 H Lactic Acid Calcium AST ALT Alkaline Phosphatase CK-MB (CK-2) CK-MB (CK-2) Rel Index Total Protein Albumin TSH Urine WBC (Auto) Salicylates 01/23/17 01/23/17 01/23/17 04:43 12:12 17:36 WBC RBC Hgb Hct MCV MCH RDW Plt Count Lymph % (Auto) [place] % (Auto) Eos % (Auto) [place] # Seg Neutrophils % Seg Neuts % (Manual) Lymphocytes % (Manual) Seg Neutrophils # Seg Neutrophils # Man Lymphocytes # (Manual) APTT POC ABG pH ABG pH POC ABG pCO2 POC ABG pO2 ABG pO2 ABG HCO3 ABG Base Excess ABG Hemoglobin VBG pH Oxyhemoglobin Sodium Potassium Chloride Carbon Dioxide BUN Creatinine Glucose POC Glucose 218 H 128 H 156 H Lactic Acid Calcium AST ALT Alkaline Phosphatase CK-MB (CK-2) CK-MB (CK-2) Rel Index Total Protein Albumin TSH Urine WBC (Auto) Salicylates 01/24/17 01/24/17 01/24/17 00:08 05:16 11:40 WBC RBC Hgb Hct MCV MCH RDW Plt Count Lymph % (Auto) [place] % (Auto) Eos % (Auto) [place] # Seg Neutrophils % Seg Neuts % (Manual) Lymphocytes % (Manual) Seg Neutrophils # Seg Neutrophils # Man Lymphocytes # (Manual) APTT POC ABG pH ABG pH POC ABG pCO2 POC ABG pO2 ABG pO2 ABG HCO3 ABG Base Excess ABG Hemoglobin VBG pH Oxyhemoglobin Sodium Potassium Chloride Carbon Dioxide BUN Creatinine Glucose POC Glucose 129 H 169 H 187 H Lactic Acid Calcium AST ALT Alkaline Phosphatase CK-MB (CK-2) CK-MB (CK-2) Rel Index Total Protein Albumin TSH Urine WBC (Auto) Salicylates 01/24/17 01/24/17 01/25/17 17:43 23:23 04:56 WBC RBC Hgb Hct MCV MCH RDW Plt Count Lymph % (Auto) [place] % (Auto) Eos % (Auto) [place] # Seg Neutrophils % Seg Neuts % (Manual) Lymphocytes % (Manual) Seg Neutrophils # Seg Neutrophils # Man Lymphocytes # (Manual) APTT POC ABG pH ABG pH POC ABG pCO2 POC ABG pO2 ABG pO2 ABG HCO3 ABG Base Excess ABG Hemoglobin VBG pH Oxyhemoglobin Sodium Potassium Chloride Carbon Dioxide BUN Creatinine Glucose POC Glucose 215 H 222 H 210 H Lactic Acid Calcium AST ALT Alkaline Phosphatase CK-MB (CK-2) CK-MB (CK-2) Rel Index Total Protein Albumin TSH Urine WBC (Auto) Salicylates 01/25/17 01/25/17 01/26/17 11:52 17:37 00:02 WBC RBC Hgb Hct MCV MCH RDW Plt Count Lymph % (Auto) [place] % (Auto) Eos % (Auto) [place] # Seg Neutrophils % Seg Neuts % (Manual) Lymphocytes % (Manual) Seg Neutrophils # Seg Neutrophils # Man Lymphocytes # (Manual) APTT POC ABG pH ABG pH POC ABG pCO2 POC ABG pO2 ABG pO2 ABG HCO3 ABG Base Excess ABG Hemoglobin VBG pH Oxyhemoglobin Sodium Potassium Chloride Carbon Dioxide BUN Creatinine Glucose POC Glucose 284 H 218 H 192 H Lactic Acid Calcium AST ALT Alkaline Phosphatase CK-MB (CK-2) CK-MB (CK-2) Rel Index Total Protein Albumin TSH Urine WBC (Auto) Salicylates 01/26/17 01/26/17 01/26/17 05:33 12:17 17:50 WBC RBC Hgb Hct MCV MCH RDW Plt Count Lymph % (Auto) [place] % (Auto) Eos % (Auto) [place] # Seg Neutrophils % Seg Neuts % (Manual) Lymphocytes % (Manual) Seg Neutrophils # Seg Neutrophils # Man Lymphocytes # (Manual) APTT POC ABG pH ABG pH POC ABG pCO2 POC ABG pO2 ABG pO2 ABG HCO3 ABG Base Excess ABG Hemoglobin VBG pH Oxyhemoglobin Sodium Potassium Chloride Carbon Dioxide BUN Creatinine Glucose POC Glucose 199 H 227 H 229 H Lactic Acid Calcium AST ALT Alkaline Phosphatase CK-MB (CK-2) CK-MB (CK-2) Rel Index Total Protein Albumin TSH Urine WBC (Auto) Salicylates 01/26/17 01/27/17 01/27/17 23:57 05:31 11:42 WBC RBC Hgb Hct MCV MCH RDW Plt Count Lymph % (Auto) [place] % (Auto) Eos % (Auto) [place] # Seg Neutrophils % Seg Neuts % (Manual) Lymphocytes % (Manual) Seg Neutrophils # Seg Neutrophils # Man Lymphocytes # (Manual) APTT POC ABG pH ABG pH POC ABG pCO2 POC ABG pO2 ABG pO2 ABG HCO3 ABG Base Excess ABG Hemoglobin VBG pH Oxyhemoglobin Sodium Potassium Chloride Carbon Dioxide BUN Creatinine Glucose POC Glucose 186 H 285 H 260 H Lactic Acid Calcium AST ALT Alkaline Phosphatase CK-MB (CK-2) CK-MB (CK-2) Rel Index Total Protein Albumin TSH Urine WBC (Auto) Salicylates 01/27/17 01/27/17 01/27/17 17:47 23:58 Unknown WBC 12.1 H RBC 3.28 L Hgb 8.5 L Hct 25.5 L MCV 78 L MCH 26 L RDW 16.8 H Plt Count 601 H Lymph % (Auto) [place] % (Auto) Eos % (Auto) [place] # Seg Neutrophils % Seg Neuts % (Manual) Lymphocytes % (Manual) Seg Neutrophils # Seg Neutrophils # Man Lymphocytes # (Manual) APTT POC ABG pH ABG pH POC ABG pCO2 POC ABG pO2 ABG pO2 ABG HCO3 ABG Base Excess ABG Hemoglobin VBG pH Oxyhemoglobin Sodium Potassium Chloride Carbon Dioxide BUN Creatinine Glucose POC Glucose 329 H 225 H Lactic Acid Calcium AST ALT Alkaline Phosphatase CK-MB (CK-2) CK-MB (CK-2) Rel Index Total Protein Albumin TSH Urine WBC (Auto) Salicylates 01/27/17 01/28/17 01/28/17 Unknown 03:44 03:44 WBC RBC 3.14 L Hgb 8.2 L Hct 24.1 L MCV 77 L MCH 26 L RDW 16.9 H Plt Count 567 H Lymph % (Auto) [place] % (Auto) Eos % (Auto) [place] # Seg Neutrophils % Seg Neuts % (Manual) Lymphocytes % (Manual) Seg Neutrophils # Seg Neutrophils # Man Lymphocytes # (Manual) APTT POC ABG pH ABG pH POC ABG pCO2 POC ABG pO2 ABG pO2 ABG HCO3 ABG Base Excess ABG Hemoglobin VBG pH Oxyhemoglobin Sodium 128 L Potassium 5.4 H Chloride 87.5 L Carbon Dioxide BUN 44 H 42 H Creatinine Glucose 250 H 128 H POC Glucose Lactic Acid Calcium AST ALT Alkaline Phosphatase CK-MB (CK-2) CK-MB (CK-2) Rel Index Total Protein Albumin TSH Urine WBC (Auto) Salicylates 01/28/17 01/28/17 01/28/17 11:43 16:47 17:52 WBC RBC Hgb Hct MCV MCH RDW Plt Count Lymph % (Auto) [place] % (Auto) Eos % (Auto) [place] # Seg Neutrophils % Seg Neuts % (Manual) Lymphocytes % (Manual) Seg Neutrophils # Seg Neutrophils # Man Lymphocytes # (Manual) APTT POC ABG pH ABG pH POC ABG pCO2 POC ABG pO2 ABG pO2 ABG HCO3 ABG Base Excess ABG Hemoglobin VBG pH Oxyhemoglobin Sodium Potassium Chloride Carbon Dioxide BUN Creatinine Glucose POC Glucose 351 H 249 H Lactic Acid Calcium AST ALT Alkaline Phosphatase CK-MB (CK-2) CK-MB (CK-2) Rel Index Total Protein Albumin TSH Urine WBC (Auto) > 182.0 H Salicylates 01/29/17 01/29/17 01/29/17 05:25 05:25 09:32 WBC 13.6 H RBC 3.25 L Hgb 8.3 L Hct 25.1 L MCV 77 L MCH 26 L RDW 16.8 H Plt Count 514 H Lymph % (Auto) [place] % (Auto) Eos % (Auto) [place] # Seg Neutrophils % Seg Neuts % (Manual) Lymphocytes % (Manual) Seg Neutrophils # Seg Neutrophils # Man Lymphocytes # (Manual) APTT POC ABG pH ABG pH POC ABG pCO2 POC ABG pO2 ABG pO2 ABG HCO3 ABG Base Excess ABG Hemoglobin VBG pH Oxyhemoglobin Sodium Potassium Chloride 97.8 L Carbon Dioxide BUN 34 H Creatinine Glucose 222 H POC Glucose Lactic Acid 2.50 H* Calcium AST ALT Alkaline Phosphatase CK-MB (CK-2) CK-MB (CK-2) Rel Index Total Protein Albumin TSH Urine WBC (Auto) Salicylates 01/29/17 01/29/17 01/29/17 11:56 18:11 23:55 WBC RBC Hgb Hct MCV MCH RDW Plt Count Lymph % (Auto) [place] % (Auto) Eos % (Auto) [place] # Seg Neutrophils % Seg Neuts % (Manual) Lymphocytes % (Manual) Seg Neutrophils # Seg Neutrophils # Man Lymphocytes # (Manual) APTT POC ABG pH ABG pH POC ABG pCO2 POC ABG pO2 ABG pO2 ABG HCO3 ABG Base Excess ABG Hemoglobin VBG pH Oxyhemoglobin Sodium Potassium Chloride Carbon Dioxide BUN Creatinine Glucose POC Glucose 261 H 215 H 176 H Lactic Acid Calcium AST ALT Alkaline Phosphatase CK-MB (CK-2) CK-MB (CK-2) Rel Index Total Protein Albumin TSH Urine WBC (Auto) Salicylates 01/30/17 01/30/17 01/30/17 05:31 05:31 05:34 WBC 15.2 H RBC 3.09 L Hgb 7.9 L Hct 23.9 L MCV 77 L MCH 26 L RDW 16.9 H Plt Count 569 H Lymph % (Auto) [place] % (Auto) Eos % (Auto) [place] # Seg Neutrophils % Seg Neuts % (Manual) Lymphocytes % (Manual) Seg Neutrophils # Seg Neutrophils # Man Lymphocytes # (Manual) APTT POC ABG pH ABG pH POC ABG pCO2 POC ABG pO2 ABG pO2 ABG HCO3 ABG Base Excess ABG Hemoglobin VBG pH Oxyhemoglobin Sodium Potassium Chloride Carbon Dioxide BUN 24 H Creatinine Glucose 235 H POC Glucose 243 H Lactic Acid Calcium AST ALT Alkaline Phosphatase CK-MB (CK-2) CK-MB (CK-2) Rel Index Total Protein Albumin TSH Urine WBC (Auto) Salicylates 01/30/17 01/30/17 01/30/17 11:38 17:58 23:29 WBC RBC Hgb Hct MCV MCH RDW Plt Count Lymph % (Auto) [place] % (Auto) Eos % (Auto) [place] # Seg Neutrophils % Seg Neuts % (Manual) Lymphocytes % (Manual) Seg Neutrophils # Seg Neutrophils # Man Lymphocytes # (Manual) APTT POC ABG pH ABG pH POC ABG pCO2 POC ABG pO2 ABG pO2 ABG HCO3 ABG Base Excess ABG Hemoglobin VBG pH Oxyhemoglobin Sodium Potassium Chloride Carbon Dioxide BUN Creatinine Glucose POC Glucose 298 H 208 H 245 H Lactic Acid Calcium AST ALT Alkaline Phosphatase CK-MB (CK-2) CK-MB (CK-2) Rel Index Total Protein Albumin TSH Urine WBC (Auto) Salicylates 01/31/17 01/31/17 01/31/17 04:39 04:39 05:57 WBC 11.4 H RBC 3.22 L Hgb 8.2 L Hct 24.9 L MCV 78 L MCH 25 L RDW 17.2 H Plt Count 576 H Lymph % (Auto) [place] % (Auto) Eos % (Auto) [place] # Seg Neutrophils % Seg Neuts % (Manual) Lymphocytes % (Manual) Seg Neutrophils # Seg Neutrophils # Man Lymphocytes # (Manual) APTT POC ABG pH ABG pH POC ABG pCO2 POC ABG pO2 ABG pO2 ABG HCO3 ABG Base Excess ABG Hemoglobin VBG pH Oxyhemoglobin Sodium Potassium Chloride Carbon Dioxide BUN Creatinine 0.7 L Glucose 223 H POC Glucose 264 H Lactic Acid Calcium AST ALT Alkaline Phosphatase CK-MB (CK-2) CK-MB (CK-2) Rel Index Total Protein Albumin TSH Urine WBC (Auto) Salicylates 01/31/17 01/31/17 01/31/17 12:23 17:41 18:55 WBC RBC Hgb Hct MCV MCH RDW Plt Count Lymph % (Auto) [place] % (Auto) Eos % (Auto) [place] # Seg Neutrophils % Seg Neuts % (Manual) Lymphocytes % (Manual) Seg Neutrophils # Seg Neutrophils # Man Lymphocytes # (Manual) APTT POC ABG pH ABG pH POC ABG pCO2 32.8 L POC ABG pO2 ABG pO2 ABG HCO3 ABG Base Excess ABG Hemoglobin VBG pH Oxyhemoglobin Sodium Potassium Chloride Carbon Dioxide BUN Creatinine Glucose POC Glucose 252 H 208 H Lactic Acid Calcium AST ALT Alkaline Phosphatase CK-MB (CK-2) CK-MB (CK-2) Rel Index Total Protein Albumin TSH Urine WBC (Auto) Salicylates 01/31/17 02/01/17 02/01/17 22:59 03:38 03:38 WBC RBC 2.81 L Hgb 7.4 L Hct 22.1 L MCV 79 L MCH 27 L RDW 17.0 H Plt Count 540 H Lymph % (Auto) [place] % (Auto) Eos % (Auto) [place] # Seg Neutrophils % Seg Neuts % (Manual) Lymphocytes % (Manual) Seg Neutrophils # Seg Neutrophils # Man Lymphocytes # (Manual) APTT POC ABG pH ABG pH POC ABG pCO2 POC ABG pO2 ABG pO2 ABG HCO3 ABG Base Excess ABG Hemoglobin VBG pH Oxyhemoglobin Sodium Potassium Chloride Carbon Dioxide 21 L BUN Creatinine 0.7 L Glucose POC Glucose 40 L Lactic Acid Calcium AST ALT Alkaline Phosphatase CK-MB (CK-2) CK-MB (CK-2) Rel Index Total Protein Albumin TSH Urine WBC (Auto) Salicylates 02/01/17 02/01/17 02/01/17 05:17 12:19 16:44 WBC RBC Hgb Hct MCV MCH RDW Plt Count Lymph % (Auto) [place] % (Auto) Eos % (Auto) [place] # Seg Neutrophils % Seg Neuts % (Manual) Lymphocytes % (Manual) Seg Neutrophils # Seg Neutrophils # Man Lymphocytes # (Manual) APTT POC ABG pH ABG pH POC ABG pCO2 POC ABG pO2 ABG pO2 ABG HCO3 ABG Base Excess ABG Hemoglobin VBG pH Oxyhemoglobin Sodium Potassium Chloride Carbon Dioxide BUN Creatinine Glucose POC Glucose 140 H 213 H 172 H Lactic Acid Calcium AST ALT Alkaline Phosphatase CK-MB (CK-2) CK-MB (CK-2) Rel Index Total Protein Albumin TSH Urine WBC (Auto) Salicylates 02/01/17 02/02/17 02/02/17 23:59 05:14 11:24 WBC RBC Hgb Hct MCV MCH RDW Plt Count Lymph % (Auto) [place] % (Auto) Eos % (Auto) [place] # Seg Neutrophils % Seg Neuts % (Manual) Lymphocytes % (Manual) Seg Neutrophils # Seg Neutrophils # Man Lymphocytes # (Manual) APTT POC ABG pH ABG pH POC ABG pCO2 POC ABG pO2 ABG pO2 ABG HCO3 ABG Base Excess ABG Hemoglobin VBG pH Oxyhemoglobin Sodium Potassium Chloride Carbon Dioxide BUN Creatinine Glucose POC Glucose 181 H 194 H 209 H Lactic Acid Calcium AST ALT Alkaline Phosphatase CK-MB (CK-2) CK-MB (CK-2) Rel Index Total Protein Albumin TSH Urine WBC (Auto) Salicylates 02/02/17 02/02/17 02/02/17 11:46 11:46 17:47 WBC RBC 2.94 L Hgb 7.5 L Hct 23.0 L MCV 78 L MCH 25 L RDW 16.9 H Plt Count 520 H Lymph % (Auto) [place] % (Auto) Eos % (Auto) [place] # Seg Neutrophils % Seg Neuts % (Manual) Lymphocytes % (Manual) Seg Neutrophils # Seg Neutrophils # Man Lymphocytes # (Manual) APTT POC ABG pH ABG pH POC ABG pCO2 POC ABG pO2 ABG pO2 ABG HCO3 ABG Base Excess ABG Hemoglobin VBG pH Oxyhemoglobin Sodium Potassium Chloride Carbon Dioxide BUN Creatinine 0.6 L Glucose 189 H POC Glucose 147 H Lactic Acid Calcium 8.1 L AST ALT Alkaline Phosphatase CK-MB (CK-2) CK-MB (CK-2) Rel Index Total Protein Albumin TSH Urine WBC (Auto) Salicylates 02/02/17 02/03/17 02/03/17 23:32 05:53 11:19 WBC RBC Hgb Hct MCV MCH RDW Plt Count Lymph % (Auto) [place] % (Auto) Eos % (Auto) [place] # Seg Neutrophils % Seg Neuts % (Manual) Lymphocytes % (Manual) Seg Neutrophils # Seg Neutrophils # Man Lymphocytes # (Manual) APTT POC ABG pH ABG pH POC ABG pCO2 POC ABG pO2 ABG pO2 ABG HCO3 ABG Base Excess ABG Hemoglobin VBG pH Oxyhemoglobin Sodium Potassium Chloride Carbon Dioxide BUN Creatinine Glucose POC Glucose 176 H 224 H 228 H Lactic Acid Calcium AST ALT Alkaline Phosphatase CK-MB (CK-2) CK-MB (CK-2) Rel Index Total Protein Albumin TSH Urine WBC (Auto) Salicylates 02/03/17 02/03/17 02/04/17 16:59 23:38 05:45 WBC RBC Hgb Hct MCV MCH RDW Plt Count Lymph % (Auto) [place] % (Auto) Eos % (Auto) [place] # Seg Neutrophils % Seg Neuts % (Manual) Lymphocytes % (Manual) Seg Neutrophils # Seg Neutrophils # Man Lymphocytes # (Manual) APTT POC ABG pH ABG pH POC ABG pCO2 POC ABG pO2 ABG pO2 ABG HCO3 ABG Base Excess ABG Hemoglobin VBG pH Oxyhemoglobin Sodium Potassium Chloride Carbon Dioxide BUN Creatinine Glucose POC Glucose 189 H 191 H 251 H Lactic Acid Calcium AST ALT Alkaline Phosphatase CK-MB (CK-2) CK-MB (CK-2) Rel Index Total Protein Albumin TSH Urine WBC (Auto) Salicylates 02/04/17 02/04/17 02/05/17 11:20 17:20 00:17 WBC RBC Hgb Hct MCV MCH RDW Plt Count Lymph % (Auto) [place] % (Auto) Eos % (Auto) [place] # Seg Neutrophils % Seg Neuts % (Manual) Lymphocytes % (Manual) Seg Neutrophils # Seg Neutrophils # Man Lymphocytes # (Manual) APTT POC ABG pH ABG pH POC ABG pCO2 POC ABG pO2 ABG pO2 ABG HCO3 ABG Base Excess ABG Hemoglobin VBG pH Oxyhemoglobin Sodium Potassium Chloride Carbon Dioxide BUN Creatinine Glucose POC Glucose 243 H 163 H 200 H Lactic Acid Calcium AST ALT Alkaline Phosphatase CK-MB (CK-2) CK-MB (CK-2) Rel Index Total Protein Albumin TSH Urine WBC (Auto) Salicylates 02/05/17 02/05/17 02/05/17 05:38 12:38 16:29 WBC RBC Hgb Hct MCV MCH RDW Plt Count Lymph % (Auto) [place] % (Auto) Eos % (Auto) [place] # Seg Neutrophils % Seg Neuts % (Manual) Lymphocytes % (Manual) Seg Neutrophils # Seg Neutrophils # Man Lymphocytes # (Manual) APTT POC ABG pH ABG pH POC ABG pCO2 POC ABG pO2 ABG pO2 ABG HCO3 ABG Base Excess ABG Hemoglobin VBG pH Oxyhemoglobin Sodium Potassium Chloride Carbon Dioxide BUN Creatinine Glucose POC Glucose 248 H 241 H 257 H Lactic Acid Calcium AST ALT Alkaline Phosphatase CK-MB (CK-2) CK-MB (CK-2) Rel Index Total Protein Albumin TSH Urine WBC (Auto) Salicylates 02/05/17 02/06/17 02/06/17 23:56 05:30 11:50 WBC RBC Hgb Hct MCV MCH RDW Plt Count Lymph % (Auto) [place] % (Auto) Eos % (Auto) [place] # Seg Neutrophils % Seg Neuts % (Manual) Lymphocytes % (Manual) Seg Neutrophils # Seg Neutrophils # Man Lymphocytes # (Manual) APTT POC ABG pH ABG pH POC ABG pCO2 POC ABG pO2 ABG pO2 ABG HCO3 ABG Base Excess ABG Hemoglobin VBG pH Oxyhemoglobin Sodium Potassium Chloride Carbon Dioxide BUN Creatinine Glucose POC Glucose 258 H 120 H 254 H Lactic Acid Calcium AST ALT Alkaline Phosphatase CK-MB (CK-2) CK-MB (CK-2) Rel Index Total Protein Albumin TSH Urine WBC (Auto) Salicylates 02/06/17 02/06/17 02/07/17 17:11 23:50 05:22 WBC RBC Hgb Hct MCV MCH RDW Plt Count Lymph % (Auto) [place] % (Auto) Eos % (Auto) [place] # Seg Neutrophils % Seg Neuts % (Manual) Lymphocytes % (Manual) Seg Neutrophils # Seg Neutrophils # Man Lymphocytes # (Manual) APTT POC ABG pH ABG pH POC ABG pCO2 POC ABG pO2 ABG pO2 ABG HCO3 ABG Base Excess ABG Hemoglobin VBG pH Oxyhemoglobin Sodium Potassium Chloride Carbon Dioxide BUN Creatinine Glucose POC Glucose 149 H 240 H 258 H Lactic Acid Calcium AST ALT Alkaline Phosphatase CK-MB (CK-2) CK-MB (CK-2) Rel Index Total Protein Albumin TSH Urine WBC (Auto) Salicylates 02/07/17 02/07/17 02/07/17 11:15 18:33 23:59 WBC RBC Hgb Hct MCV MCH RDW Plt Count Lymph % (Auto) [place] % (Auto) Eos % (Auto) [place] # Seg Neutrophils % Seg Neuts % (Manual) Lymphocytes % (Manual) Seg Neutrophils # Seg Neutrophils # Man Lymphocytes # (Manual) APTT POC ABG pH ABG pH POC ABG pCO2 POC ABG pO2 ABG pO2 ABG HCO3 ABG Base Excess ABG Hemoglobin VBG pH Oxyhemoglobin Sodium Potassium Chloride Carbon Dioxide BUN Creatinine Glucose POC Glucose 239 H 176 H 186 H Lactic Acid Calcium AST ALT Alkaline Phosphatase CK-MB (CK-2) CK-MB (CK-2) Rel Index Total Protein Albumin TSH Urine WBC (Auto) Salicylates 02/08/17 02/08/17 02/08/17 06:15 11:55 16:55 WBC RBC Hgb Hct MCV MCH RDW Plt Count Lymph % (Auto) [place] % (Auto) Eos % (Auto) [place] # Seg Neutrophils % Seg Neuts % (Manual) Lymphocytes % (Manual) Seg Neutrophils # Seg Neutrophils # Man Lymphocytes # (Manual) APTT POC ABG pH ABG pH POC ABG pCO2 POC ABG pO2 ABG pO2 ABG HCO3 ABG Base Excess ABG Hemoglobin VBG pH Oxyhemoglobin Sodium Potassium Chloride Carbon Dioxide BUN Creatinine Glucose POC Glucose 195 H 129 H 246 H Lactic Acid Calcium AST ALT Alkaline Phosphatase CK-MB (CK-2) CK-MB (CK-2) Rel Index Total Protein Albumin TSH Urine WBC (Auto) Salicylates 02/08/17 02/09/17 02/09/17 23:51 05:51 07:24 WBC 14.7 H RBC 3.39 L Hgb 8.9 L Hct 26.4 L MCV 78 L MCH 26 L RDW 18.4 H Plt Count 670 H Lymph % (Auto) 11.8 L [place] % (Auto) Eos % (Auto) [place] # Seg Neutrophils % 81.2 H Seg Neuts % (Manual) Lymphocytes % (Manual) Seg Neutrophils # 11.9 H Seg Neutrophils # Man Lymphocytes # (Manual) APTT POC ABG pH ABG pH POC ABG pCO2 POC ABG pO2 ABG pO2 ABG HCO3 ABG Base Excess ABG Hemoglobin VBG pH Oxyhemoglobin Sodium Potassium Chloride Carbon Dioxide BUN Creatinine Glucose POC Glucose 262 H 295 H Lactic Acid Calcium AST ALT Alkaline Phosphatase CK-MB (CK-2) CK-MB (CK-2) Rel Index Total Protein Albumin TSH Urine WBC (Auto) Salicylates 02/09/17 02/09/17 02/09/17 07:24 12:08 18:39 WBC RBC Hgb Hct MCV MCH RDW Plt Count Lymph % (Auto) [place] % (Auto) Eos % (Auto) [place] # Seg Neutrophils % Seg Neuts % (Manual) Lymphocytes % (Manual) Seg Neutrophils # Seg Neutrophils # Man Lymphocytes # (Manual) APTT POC ABG pH ABG pH POC ABG pCO2 POC ABG pO2 ABG pO2 ABG HCO3 ABG Base Excess ABG Hemoglobin VBG pH Oxyhemoglobin Sodium Potassium Chloride 95.5 L Carbon Dioxide BUN 52 H Creatinine Glucose 277 H POC Glucose 236 H 151 H Lactic Acid Calcium AST ALT Alkaline Phosphatase CK-MB (CK-2) CK-MB (CK-2) Rel Index Total Protein Albumin TSH Urine WBC (Auto) Salicylates 02/10/17 02/10/17 02/10/17 00:01 05:44 11:21 WBC RBC Hgb Hct MCV MCH RDW Plt Count Lymph % (Auto) [place] % (Auto) Eos % (Auto) [place] # Seg Neutrophils % Seg Neuts % (Manual) Lymphocytes % (Manual) Seg Neutrophils # Seg Neutrophils # Man Lymphocytes # (Manual) APTT POC ABG pH ABG pH POC ABG pCO2 POC ABG pO2 ABG pO2 ABG HCO3 ABG Base Excess ABG Hemoglobin VBG pH Oxyhemoglobin Sodium Potassium Chloride Carbon Dioxide BUN Creatinine Glucose POC Glucose 210 H 201 H 233 H Lactic Acid Calcium AST ALT Alkaline Phosphatase CK-MB (CK-2) CK-MB (CK-2) Rel Index Total Protein Albumin TSH Urine WBC (Auto) Salicylates 02/10/17 02/10/17 02/11/17 17:29 23:56 05:24 WBC RBC Hgb Hct MCV MCH RDW Plt Count Lymph % (Auto) [place] % (Auto) Eos % (Auto) [place] # Seg Neutrophils % Seg Neuts % (Manual) Lymphocytes % (Manual) Seg Neutrophils # Seg Neutrophils # Man Lymphocytes # (Manual) APTT POC ABG pH ABG pH POC ABG pCO2 POC ABG pO2 ABG pO2 ABG HCO3 ABG Base Excess ABG Hemoglobin VBG pH Oxyhemoglobin Sodium Potassium Chloride Carbon Dioxide BUN Creatinine Glucose POC Glucose 167 H 191 H 135 H Lactic Acid Calcium AST ALT Alkaline Phosphatase CK-MB (CK-2) CK-MB (CK-2) Rel Index Total Protein Albumin TSH Urine WBC (Auto) Salicylates 02/11/17 02/11/17 02/11/17 12:25 17:03 23:59 WBC RBC Hgb Hct MCV MCH RDW Plt Count Lymph % (Auto) [place] % (Auto) Eos % (Auto) [place] # Seg Neutrophils % Seg Neuts % (Manual) Lymphocytes % (Manual) Seg Neutrophils # Seg Neutrophils # Man Lymphocytes # (Manual) APTT POC ABG pH ABG pH POC ABG pCO2 POC ABG pO2 ABG pO2 ABG HCO3 ABG Base Excess ABG Hemoglobin VBG pH Oxyhemoglobin Sodium Potassium Chloride Carbon Dioxide BUN Creatinine Glucose POC Glucose 275 H 172 H 215 H Lactic Acid Calcium AST ALT Alkaline Phosphatase CK-MB (CK-2) CK-MB (CK-2) Rel Index Total Protein Albumin TSH Urine WBC (Auto) Salicylates 02/12/17 02/12/17 02/12/17 05:39 11:33 17:55 WBC RBC Hgb Hct MCV MCH RDW Plt Count Lymph % (Auto) [place] % (Auto) Eos % (Auto) [place] # Seg Neutrophils % Seg Neuts % (Manual) Lymphocytes % (Manual) Seg Neutrophils # Seg Neutrophils # Man Lymphocytes # (Manual) APTT POC ABG pH ABG pH POC ABG pCO2 POC ABG pO2 ABG pO2 ABG HCO3 ABG Base Excess ABG Hemoglobin VBG pH Oxyhemoglobin Sodium Potassium Chloride Carbon Dioxide BUN Creatinine Glucose POC Glucose 261 H 217 H 172 H Lactic Acid Calcium AST ALT Alkaline Phosphatase CK-MB (CK-2) CK-MB (CK-2) Rel Index Total Protein Albumin TSH Urine WBC (Auto) Salicylates 02/13/17 02/13/17 02/13/17 00:25 06:46 11:26 WBC RBC Hgb Hct MCV MCH RDW Plt Count Lymph % (Auto) [place] % (Auto) Eos % (Auto) [place] # Seg Neutrophils % Seg Neuts % (Manual) Lymphocytes % (Manual) Seg Neutrophils # Seg Neutrophils # Man Lymphocytes # (Manual) APTT POC ABG pH ABG pH POC ABG pCO2 POC ABG pO2 ABG pO2 ABG HCO3 ABG Base Excess ABG Hemoglobin VBG pH Oxyhemoglobin Sodium Potassium Chloride Carbon Dioxide BUN Creatinine Glucose POC Glucose 207 H 219 H 231 H Lactic Acid Calcium AST ALT Alkaline Phosphatase CK-MB (CK-2) CK-MB (CK-2) Rel Index Total Protein Albumin TSH Urine WBC (Auto) Salicylates 02/13/17 02/13/17 02/14/17 17:12 23:44 05:44 WBC RBC Hgb Hct MCV MCH RDW Plt Count Lymph % (Auto) [place] % (Auto) Eos % (Auto) [place] # Seg Neutrophils % Seg Neuts % (Manual) Lymphocytes % (Manual) Seg Neutrophils # Seg Neutrophils # Man Lymphocytes # (Manual) APTT POC ABG pH ABG pH POC ABG pCO2 POC ABG pO2 ABG pO2 ABG HCO3 ABG Base Excess ABG Hemoglobin VBG pH Oxyhemoglobin Sodium Potassium Chloride Carbon Dioxide BUN Creatinine Glucose POC Glucose 190 H 256 H 184 H Lactic Acid Calcium AST ALT Alkaline Phosphatase CK-MB (CK-2) CK-MB (CK-2) Rel Index Total Protein Albumin TSH Urine WBC (Auto) Salicylates 02/14/17 02/14/17 02/14/17 12:21 17:57 23:18 WBC RBC Hgb Hct MCV MCH RDW Plt Count Lymph % (Auto) [place] % (Auto) Eos % (Auto) [place] # Seg Neutrophils % Seg Neuts % (Manual) Lymphocytes % (Manual) Seg Neutrophils # Seg Neutrophils # Man Lymphocytes # (Manual) APTT POC ABG pH ABG pH POC ABG pCO2 POC ABG pO2 ABG pO2 ABG HCO3 ABG Base Excess ABG Hemoglobin VBG pH Oxyhemoglobin Sodium Potassium Chloride Carbon Dioxide BUN Creatinine Glucose POC Glucose 233 H 155 H 165 H Lactic Acid Calcium AST ALT Alkaline Phosphatase CK-MB (CK-2) CK-MB (CK-2) Rel Index Total Protein Albumin TSH Urine WBC (Auto) Salicylates 02/15/17 02/15/17 02/15/17 05:33 11:45 17:20 WBC RBC Hgb Hct MCV MCH RDW Plt Count Lymph % (Auto) [place] % (Auto) Eos % (Auto) [place] # Seg Neutrophils % Seg Neuts % (Manual) Lymphocytes % (Manual) Seg Neutrophils # Seg Neutrophils # Man Lymphocytes # (Manual) APTT POC ABG pH ABG pH POC ABG pCO2 POC ABG pO2 ABG pO2 ABG HCO3 ABG Base Excess ABG Hemoglobin VBG pH Oxyhemoglobin Sodium Potassium Chloride Carbon Dioxide BUN Creatinine Glucose POC Glucose 239 H 130 H 189 H Lactic Acid Calcium AST ALT Alkaline Phosphatase CK-MB (CK-2) CK-MB (CK-2) Rel Index Total Protein Albumin TSH Urine WBC (Auto) Salicylates 02/16/17 02/16/17 02/16/17 00:14 05:09 12:31 WBC RBC Hgb Hct MCV MCH RDW Plt Count Lymph % (Auto) [place] % (Auto) Eos % (Auto) [place] # Seg Neutrophils % Seg Neuts % (Manual) Lymphocytes % (Manual) Seg Neutrophils # Seg Neutrophils # Man Lymphocytes # (Manual) APTT POC ABG pH ABG pH POC ABG pCO2 POC ABG pO2 ABG pO2 ABG HCO3 ABG Base Excess ABG Hemoglobin VBG pH Oxyhemoglobin Sodium Potassium Chloride Carbon Dioxide BUN Creatinine Glucose POC Glucose 197 H 226 H 178 H Lactic Acid Calcium AST ALT Alkaline Phosphatase CK-MB (CK-2) CK-MB (CK-2) Rel Index Total Protein Albumin TSH Urine WBC (Auto) Salicylates 02/16/17 02/16/17 02/17/17 16:35 23:49 05:37 WBC RBC Hgb Hct MCV MCH RDW Plt Count Lymph % (Auto) [place] % (Auto) Eos % (Auto) [place] # Seg Neutrophils % Seg Neuts % (Manual) Lymphocytes % (Manual) Seg Neutrophils # Seg Neutrophils # Man Lymphocytes # (Manual) APTT POC ABG pH ABG pH POC ABG pCO2 POC ABG pO2 ABG pO2 ABG HCO3 ABG Base Excess ABG Hemoglobin VBG pH Oxyhemoglobin Sodium Potassium Chloride Carbon Dioxide BUN Creatinine Glucose POC Glucose 174 H 62 L 153 H Lactic Acid Calcium AST ALT Alkaline Phosphatase CK-MB (CK-2) CK-MB (CK-2) Rel Index Total Protein Albumin TSH Urine WBC (Auto) Salicylates 02/17/17 02/17/17 02/17/17 11:39 17:02 22:24 WBC RBC Hgb Hct MCV MCH RDW Plt Count Lymph % (Auto) [place] % (Auto) Eos % (Auto) [place] # Seg Neutrophils % Seg Neuts % (Manual) Lymphocytes % (Manual) Seg Neutrophils # Seg Neutrophils # Man Lymphocytes # (Manual) APTT POC ABG pH ABG pH POC ABG pCO2 POC ABG pO2 ABG pO2 ABG HCO3 ABG Base Excess ABG Hemoglobin VBG pH Oxyhemoglobin Sodium Potassium Chloride Carbon Dioxide BUN Creatinine Glucose POC Glucose 231 H 112 H 116 H Lactic Acid Calcium AST ALT Alkaline Phosphatase CK-MB (CK-2) CK-MB (CK-2) Rel Index Total Protein Albumin TSH Urine WBC (Auto) Salicylates 02/18/17 02/19/17 02/19/17 15:34 05:09 07:57 WBC RBC Hgb Hct MCV MCH RDW Plt Count Lymph % (Auto) [place] % (Auto) Eos % (Auto) [place] # Seg Neutrophils % Seg Neuts % (Manual) Lymphocytes % (Manual) Seg Neutrophils # Seg Neutrophils # Man Lymphocytes # (Manual) APTT POC ABG pH ABG pH POC ABG pCO2 POC ABG pO2 ABG pO2 ABG HCO3 ABG Base Excess ABG Hemoglobin VBG pH Oxyhemoglobin Sodium Potassium Chloride Carbon Dioxide BUN Creatinine Glucose POC Glucose 215 H 218 H 283 H Lactic Acid Calcium AST ALT Alkaline Phosphatase CK-MB (CK-2) CK-MB (CK-2) Rel Index Total Protein Albumin TSH Urine WBC (Auto) Salicylates 02/19/17 02/19/17 02/20/17 14:49 22:10 05:10 WBC RBC Hgb Hct MCV MCH RDW Plt Count Lymph % (Auto) [place] % (Auto) Eos % (Auto) [place] # Seg Neutrophils % Seg Neuts % (Manual) Lymphocytes % (Manual) Seg Neutrophils # Seg Neutrophils # Man Lymphocytes # (Manual) APTT POC ABG pH ABG pH POC ABG pCO2 POC ABG pO2 ABG pO2 ABG HCO3 ABG Base Excess ABG Hemoglobin VBG pH Oxyhemoglobin Sodium Potassium Chloride Carbon Dioxide BUN Creatinine Glucose POC Glucose 290 H 169 H 209 H Lactic Acid Calcium AST ALT Alkaline Phosphatase CK-MB (CK-2) CK-MB (CK-2) Rel Index Total Protein Albumin TSH Urine WBC (Auto) Salicylates 02/20/17 02/20/17 02/21/17 15:05 21:52 02:00 WBC RBC Hgb Hct MCV MCH RDW Plt Count Lymph % (Auto) [place] % (Auto) Eos % (Auto) [place] # Seg Neutrophils % Seg Neuts % (Manual) Lymphocytes % (Manual) Seg Neutrophils # Seg Neutrophils # Man Lymphocytes # (Manual) APTT POC ABG pH ABG pH POC ABG pCO2 POC ABG pO2 ABG pO2 ABG HCO3 ABG Base Excess ABG Hemoglobin VBG pH Oxyhemoglobin Sodium Potassium Chloride Carbon Dioxide BUN Creatinine Glucose POC Glucose 172 H 209 H 216 H Lactic Acid Calcium AST ALT Alkaline Phosphatase CK-MB (CK-2) CK-MB (CK-2) Rel Index Total Protein Albumin TSH Urine WBC (Auto) Salicylates 02/21/17 02/21/17 02/21/17 04:54 14:43 17:47 WBC RBC Hgb Hct MCV MCH RDW Plt Count Lymph % (Auto) [place] % (Auto) Eos % (Auto) [place] # Seg Neutrophils % Seg Neuts % (Manual) Lymphocytes % (Manual) Seg Neutrophils # Seg Neutrophils # Man Lymphocytes # (Manual) APTT POC ABG pH ABG pH POC ABG pCO2 POC ABG pO2 ABG pO2 ABG HCO3 ABG Base Excess ABG Hemoglobin VBG pH Oxyhemoglobin Sodium Potassium Chloride Carbon Dioxide BUN Creatinine Glucose POC Glucose 227 H 290 H 220 H Lactic Acid Calcium AST ALT Alkaline Phosphatase CK-MB (CK-2) CK-MB (CK-2) Rel Index Total Protein Albumin TSH Urine WBC (Auto) Salicylates 02/21/17 02/22/17 02/22/17 22:02 04:52 15:25 WBC RBC Hgb Hct MCV MCH RDW Plt Count Lymph % (Auto) [place] % (Auto) Eos % (Auto) [place] # Seg Neutrophils % Seg Neuts % (Manual) Lymphocytes % (Manual) Seg Neutrophils # Seg Neutrophils # Man Lymphocytes # (Manual) APTT POC ABG pH ABG pH POC ABG pCO2 POC ABG pO2 ABG pO2 ABG HCO3 ABG Base Excess ABG Hemoglobin VBG pH Oxyhemoglobin Sodium Potassium Chloride Carbon Dioxide BUN Creatinine Glucose POC Glucose 246 H 212 H 236 H Lactic Acid Calcium AST ALT Alkaline Phosphatase CK-MB (CK-2) CK-MB (CK-2) Rel Index Total Protein Albumin TSH Urine WBC (Auto) Salicylates 02/22/17 02/23/17 02/23/17 21:33 06:04 10:00 WBC RBC Hgb Hct MCV MCH RDW Plt Count Lymph % (Auto) [place] % (Auto) Eos % (Auto) [place] # Seg Neutrophils % Seg Neuts % (Manual) Lymphocytes % (Manual) Seg Neutrophils # Seg Neutrophils # Man Lymphocytes # (Manual) APTT POC ABG pH ABG pH POC ABG pCO2 POC ABG pO2 ABG pO2 ABG HCO3 ABG Base Excess ABG Hemoglobin VBG pH Oxyhemoglobin Sodium Potassium Chloride Carbon Dioxide BUN Creatinine Glucose POC Glucose 255 H 208 H 174 H Lactic Acid Calcium AST ALT Alkaline Phosphatase CK-MB (CK-2) CK-MB (CK-2) Rel Index Total Protein Albumin TSH Urine WBC (Auto) Salicylates 02/23/17 02/23/17 02/23/17 12:52 17:15 21:51 WBC RBC Hgb Hct MCV MCH RDW Plt Count Lymph % (Auto) [place] % (Auto) Eos % (Auto) [place] # Seg Neutrophils % Seg Neuts % (Manual) Lymphocytes % (Manual) Seg Neutrophils # Seg Neutrophils # Man Lymphocytes # (Manual) APTT POC ABG pH ABG pH POC ABG pCO2 POC ABG pO2 ABG pO2 ABG HCO3 ABG Base Excess ABG Hemoglobin VBG pH Oxyhemoglobin Sodium Potassium Chloride Carbon Dioxide BUN Creatinine Glucose POC Glucose 203 H 269 H 205 H Lactic Acid Calcium AST ALT Alkaline Phosphatase CK-MB (CK-2) CK-MB (CK-2) Rel Index Total Protein Albumin TSH Urine WBC (Auto) Salicylates 02/24/17 02/24/17 02/24/17 10:23 17:45 21:24 WBC RBC Hgb Hct MCV MCH RDW Plt Count Lymph % (Auto) [place] % (Auto) Eos % (Auto) [place] # Seg Neutrophils % Seg Neuts % (Manual) Lymphocytes % (Manual) Seg Neutrophils # Seg Neutrophils # Man Lymphocytes # (Manual) APTT POC ABG pH ABG pH POC ABG pCO2 POC ABG pO2 ABG pO2 ABG HCO3 ABG Base Excess ABG Hemoglobin VBG pH Oxyhemoglobin Sodium Potassium Chloride Carbon Dioxide BUN Creatinine Glucose POC Glucose 280 H 239 H 254 H Lactic Acid Calcium AST ALT Alkaline Phosphatase CK-MB (CK-2) CK-MB (CK-2) Rel Index Total Protein Albumin TSH Urine WBC (Auto) Salicylates 02/25/17 02/25/17 02/25/17 02:12 05:17 14:32 WBC RBC Hgb Hct MCV MCH RDW Plt Count Lymph % (Auto) [place] % (Auto) Eos % (Auto) [place] # Seg Neutrophils % Seg Neuts % (Manual) Lymphocytes % (Manual) Seg Neutrophils # Seg Neutrophils # Man Lymphocytes # (Manual) APTT POC ABG pH ABG pH POC ABG pCO2 POC ABG pO2 ABG pO2 ABG HCO3 ABG Base Excess ABG Hemoglobin VBG pH Oxyhemoglobin Sodium Potassium Chloride Carbon Dioxide BUN Creatinine Glucose POC Glucose 296 H 332 H 353 H Lactic Acid Calcium AST ALT Alkaline Phosphatase CK-MB (CK-2) CK-MB (CK-2) Rel Index Total Protein Albumin TSH Urine WBC (Auto) Salicylates 02/25/17 02/26/17 02/26/17 22:14 00:37 05:52 WBC RBC Hgb Hct MCV MCH RDW Plt Count Lymph % (Auto) [place] % (Auto) Eos % (Auto) [place] # Seg Neutrophils % Seg Neuts % (Manual) Lymphocytes % (Manual) Seg Neutrophils # Seg Neutrophils # Man Lymphocytes # (Manual) APTT POC ABG pH ABG pH POC ABG pCO2 POC ABG pO2 ABG pO2 ABG HCO3 ABG Base Excess ABG Hemoglobin VBG pH Oxyhemoglobin Sodium Potassium Chloride Carbon Dioxide BUN Creatinine Glucose POC Glucose 201 H 233 H 269 H Lactic Acid Calcium AST ALT Alkaline Phosphatase CK-MB (CK-2) CK-MB (CK-2) Rel Index Total Protein Albumin TSH Urine WBC (Auto) Salicylates 02/26/17 02/26/17 02/26/17 11:48 13:49 21:26 WBC RBC Hgb Hct MCV MCH RDW Plt Count Lymph % (Auto) [place] % (Auto) Eos % (Auto) [place] # Seg Neutrophils % Seg Neuts % (Manual) Lymphocytes % (Manual) Seg Neutrophils # Seg Neutrophils # Man Lymphocytes # (Manual) APTT POC ABG pH ABG pH POC ABG pCO2 POC ABG pO2 ABG pO2 ABG HCO3 ABG Base Excess ABG Hemoglobin VBG pH Oxyhemoglobin Sodium Potassium Chloride Carbon Dioxide BUN Creatinine Glucose POC Glucose 333 H 322 H 244 H Lactic Acid Calcium AST ALT Alkaline Phosphatase CK-MB (CK-2) CK-MB (CK-2) Rel Index Total Protein Albumin TSH Urine WBC (Auto) Salicylates 02/27/17 02/27/17 02/27/17 05:27 13:51 21:48 WBC RBC Hgb Hct MCV MCH RDW Plt Count Lymph % (Auto) [place] % (Auto) Eos % (Auto) [place] # Seg Neutrophils % Seg Neuts % (Manual) Lymphocytes % (Manual) Seg Neutrophils # Seg Neutrophils # Man Lymphocytes # (Manual) APTT POC ABG pH ABG pH POC ABG pCO2 POC ABG pO2 ABG pO2 ABG HCO3 ABG Base Excess ABG Hemoglobin VBG pH Oxyhemoglobin Sodium Potassium Chloride Carbon Dioxide BUN Creatinine Glucose POC Glucose 217 H 239 H 254 H Lactic Acid Calcium AST ALT Alkaline Phosphatase CK-MB (CK-2) CK-MB (CK-2) Rel Index Total Protein Albumin TSH Urine WBC (Auto) Salicylates 02/28/17 02/28/17 02/28/17 05:38 11:00 19:44 WBC RBC Hgb Hct MCV MCH RDW Plt Count Lymph % (Auto) [place] % (Auto) Eos % (Auto) [place] # Seg Neutrophils % Seg Neuts % (Manual) Lymphocytes % (Manual) Seg Neutrophils # Seg Neutrophils # Man Lymphocytes # (Manual) APTT POC ABG pH ABG pH POC ABG pCO2 POC ABG pO2 ABG pO2 ABG HCO3 ABG Base Excess ABG Hemoglobin VBG pH Oxyhemoglobin Sodium Potassium Chloride Carbon Dioxide BUN Creatinine Glucose POC Glucose 325 H 203 H 116 H Lactic Acid Calcium AST ALT Alkaline Phosphatase CK-MB (CK-2) CK-MB (CK-2) Rel Index Total Protein Albumin TSH Urine WBC (Auto) Salicylates 03/01/17 03/01/17 03/01/17 00:08 05:31 12:17 WBC RBC Hgb Hct MCV MCH RDW Plt Count Lymph % (Auto) [place] % (Auto) Eos % (Auto) [place] # Seg Neutrophils % Seg Neuts % (Manual) Lymphocytes % (Manual) Seg Neutrophils # Seg Neutrophils # Man Lymphocytes # (Manual) APTT POC ABG pH ABG pH POC ABG pCO2 POC ABG pO2 ABG pO2 ABG HCO3 ABG Base Excess ABG Hemoglobin VBG pH Oxyhemoglobin Sodium Potassium Chloride Carbon Dioxide BUN Creatinine Glucose POC Glucose 202 H 183 H 184 H Lactic Acid Calcium AST ALT Alkaline Phosphatase CK-MB (CK-2) CK-MB (CK-2) Rel Index Total Protein Albumin TSH Urine WBC (Auto) Salicylates 03/02/17 03/02/17 03/02/17 00:12 05:58 18:22 WBC RBC Hgb Hct MCV MCH RDW Plt Count Lymph % (Auto) [place] % (Auto) Eos % (Auto) [place] # Seg Neutrophils % Seg Neuts % (Manual) Lymphocytes % (Manual) Seg Neutrophils # Seg Neutrophils # Man Lymphocytes # (Manual) APTT POC ABG pH ABG pH POC ABG pCO2 POC ABG pO2 ABG pO2 ABG HCO3 ABG Base Excess ABG Hemoglobin VBG pH Oxyhemoglobin Sodium Potassium Chloride Carbon Dioxide BUN Creatinine Glucose POC Glucose 117 H 176 H 156 H Lactic Acid Calcium AST ALT Alkaline Phosphatase CK-MB (CK-2) CK-MB (CK-2) Rel Index Total Protein Albumin TSH Urine WBC (Auto) Salicylates 03/02/17 03/03/17 03/03/17 23:51 05:44 11:32 WBC RBC Hgb Hct MCV MCH RDW Plt Count Lymph % (Auto) [place] % (Auto) Eos % (Auto) [place] # Seg Neutrophils % Seg Neuts % (Manual) Lymphocytes % (Manual) Seg Neutrophils # Seg Neutrophils # Man Lymphocytes # (Manual) APTT POC ABG pH ABG pH POC ABG pCO2 POC ABG pO2 ABG pO2 ABG HCO3 ABG Base Excess ABG Hemoglobin VBG pH Oxyhemoglobin Sodium Potassium Chloride Carbon Dioxide BUN Creatinine Glucose POC Glucose 211 H 117 H 133 H Lactic Acid Calcium AST ALT Alkaline Phosphatase CK-MB (CK-2) CK-MB (CK-2) Rel Index Total Protein Albumin TSH Urine WBC (Auto) Salicylates 03/03/17 03/03/17 03/04/17 17:43 23:17 05:30 WBC RBC Hgb Hct MCV MCH RDW Plt Count Lymph % (Auto) [place] % (Auto) Eos % (Auto) [place] # Seg Neutrophils % Seg Neuts % (Manual) Lymphocytes % (Manual) Seg Neutrophils # Seg Neutrophils # Man Lymphocytes # (Manual) APTT POC ABG pH ABG pH POC ABG pCO2 POC ABG pO2 ABG pO2 ABG HCO3 ABG Base Excess ABG Hemoglobin VBG pH Oxyhemoglobin Sodium Potassium Chloride Carbon Dioxide BUN Creatinine Glucose POC Glucose 206 H 170 H 126 H Lactic Acid Calcium AST ALT Alkaline Phosphatase CK-MB (CK-2) CK-MB (CK-2) Rel Index Total Protein Albumin TSH Urine WBC (Auto) Salicylates 03/04/17 03/04/17 03/05/17 12:17 17:27 05:20 WBC RBC Hgb Hct MCV MCH RDW Plt Count Lymph % (Auto) [place] % (Auto) Eos % (Auto) [place] # Seg Neutrophils % Seg Neuts % (Manual) Lymphocytes % (Manual) Seg Neutrophils # Seg Neutrophils # Man Lymphocytes # (Manual) APTT POC ABG pH ABG pH POC ABG pCO2 POC ABG pO2 ABG pO2 ABG HCO3 ABG Base Excess ABG Hemoglobin VBG pH Oxyhemoglobin Sodium Potassium Chloride Carbon Dioxide BUN Creatinine Glucose POC Glucose 135 H 121 H 185 H Lactic Acid Calcium AST ALT Alkaline Phosphatase CK-MB (CK-2) CK-MB (CK-2) Rel Index Total Protein Albumin TSH Urine WBC (Auto) Salicylates 03/05/17 03/06/17 03/06/17 11:50 11:52 17:34 WBC RBC Hgb Hct MCV MCH RDW Plt Count Lymph % (Auto) [place] % (Auto) Eos % (Auto) [place] # Seg Neutrophils % Seg Neuts % (Manual) Lymphocytes % (Manual) Seg Neutrophils # Seg Neutrophils # Man Lymphocytes # (Manual) APTT POC ABG pH ABG pH POC ABG pCO2 POC ABG pO2 ABG pO2 ABG HCO3 ABG Base Excess ABG Hemoglobin VBG pH Oxyhemoglobin Sodium Potassium Chloride Carbon Dioxide BUN Creatinine Glucose POC Glucose 116 H 133 H 181 H Lactic Acid Calcium AST ALT Alkaline Phosphatase CK-MB (CK-2) CK-MB (CK-2) Rel Index Total Protein Albumin TSH Urine WBC (Auto) Salicylates 03/07/17 03/07/17 03/07/17 05:21 11:36 17:49 WBC RBC Hgb Hct MCV MCH RDW Plt Count Lymph % (Auto) [place] % (Auto) Eos % (Auto) [place] # Seg Neutrophils % Seg Neuts % (Manual) Lymphocytes % (Manual) Seg Neutrophils # Seg Neutrophils # Man Lymphocytes # (Manual) APTT POC ABG pH ABG pH POC ABG pCO2 POC ABG pO2 ABG pO2 ABG HCO3 ABG Base Excess ABG Hemoglobin VBG pH Oxyhemoglobin Sodium Potassium Chloride Carbon Dioxide BUN Creatinine Glucose POC Glucose 159 H 137 H 158 H Lactic Acid Calcium AST ALT Alkaline Phosphatase CK-MB (CK-2) CK-MB (CK-2) Rel Index Total Protein Albumin TSH Urine WBC (Auto) Salicylates 03/08/17 03/08/17 03/08/17 05:51 13:58 23:50 WBC RBC Hgb Hct MCV MCH RDW Plt Count Lymph % (Auto) [place] % (Auto) Eos % (Auto) [place] # Seg Neutrophils % Seg Neuts % (Manual) Lymphocytes % (Manual) Seg Neutrophils # Seg Neutrophils # Man Lymphocytes # (Manual) APTT POC ABG pH ABG pH POC ABG pCO2 POC ABG pO2 ABG pO2 ABG HCO3 ABG Base Excess ABG Hemoglobin VBG pH Oxyhemoglobin Sodium Potassium Chloride Carbon Dioxide BUN Creatinine Glucose POC Glucose 122 H 182 H 114 H Lactic Acid Calcium AST ALT Alkaline Phosphatase CK-MB (CK-2) CK-MB (CK-2) Rel Index Total Protein Albumin TSH Urine WBC (Auto) Salicylates 03/09/17 03/09/17 03/09/17 05:21 05:51 05:51 WBC RBC 3.61 L Hgb 9.5 L Hct 28.3 L MCV 79 L MCH 26 L RDW 17.8 H Plt Count Lymph % (Auto) [place] % (Auto) Eos % (Auto) [place] # Seg Neutrophils % Seg Neuts % (Manual) Lymphocytes % (Manual) Seg Neutrophils # Seg Neutrophils # Man Lymphocytes # (Manual) APTT POC ABG pH ABG pH POC ABG pCO2 POC ABG pO2 ABG pO2 ABG HCO3 ABG Base Excess ABG Hemoglobin VBG pH Oxyhemoglobin Sodium 134 L Potassium Chloride 95.5 L Carbon Dioxide BUN 33 H Creatinine 0.5 L Glucose 143 H POC Glucose 153 H Lactic Acid Calcium AST ALT Alkaline Phosphatase CK-MB (CK-2) CK-MB (CK-2) Rel Index Total Protein Albumin TSH Urine WBC (Auto) Salicylates 03/09/17 03/09/17 03/09/17 12:10 18:13 21:00 WBC RBC Hgb Hct MCV MCH RDW Plt Count Lymph % (Auto) [place] % (Auto) Eos % (Auto) [place] # Seg Neutrophils % Seg Neuts % (Manual) Lymphocytes % (Manual) Seg Neutrophils # Seg Neutrophils # Man Lymphocytes # (Manual) APTT POC ABG pH ABG pH POC ABG pCO2 POC ABG pO2 ABG pO2 ABG HCO3 ABG Base Excess ABG Hemoglobin VBG pH Oxyhemoglobin Sodium Potassium Chloride Carbon Dioxide BUN Creatinine Glucose POC Glucose 203 H 221 H 198 H Lactic Acid Calcium AST ALT Alkaline Phosphatase CK-MB (CK-2) CK-MB (CK-2) Rel Index Total Protein Albumin TSH Urine WBC (Auto) Salicylates 03/09/17 03/10/17 03/10/17 23:58 05:09 05:09 WBC RBC Hgb 10.3 L Hct 30.5 L MCV 78 L MCH 26 L RDW 17.9 H Plt Count Lymph % (Auto) [place] % (Auto) 10.0 H Eos % (Auto) 6.0 H [place] # Seg Neutrophils % Seg Neuts % (Manual) Lymphocytes % (Manual) Seg Neutrophils # Seg Neutrophils # Man Lymphocytes # (Manual) APTT POC ABG pH ABG pH POC ABG pCO2 POC ABG pO2 ABG pO2 ABG HCO3 ABG Base Excess ABG Hemoglobin VBG pH Oxyhemoglobin Sodium 132 L Potassium Chloride 92.2 L Carbon Dioxide BUN 33 H Creatinine 0.5 L Glucose 50 L POC Glucose 167 H Lactic Acid Calcium AST ALT Alkaline Phosphatase CK-MB (CK-2) CK-MB (CK-2) Rel Index Total Protein Albumin TSH Urine WBC (Auto) Salicylates 03/10/17 03/10/17 03/10/17 05:33 05:34 11:48 WBC RBC Hgb Hct MCV MCH RDW Plt Count Lymph % (Auto) [place] % (Auto) Eos % (Auto) [place] # Seg Neutrophils % Seg Neuts % (Manual) Lymphocytes % (Manual) Seg Neutrophils # Seg Neutrophils # Man Lymphocytes # (Manual) APTT POC ABG pH ABG pH POC ABG pCO2 POC ABG pO2 ABG pO2 ABG HCO3 ABG Base Excess ABG Hemoglobin VBG pH Oxyhemoglobin Sodium Potassium Chloride Carbon Dioxide BUN Creatinine Glucose POC Glucose 52 L 53 L 148 H Lactic Acid Calcium AST ALT Alkaline Phosphatase CK-MB (CK-2) CK-MB (CK-2) Rel Index Total Protein Albumin TSH Urine WBC (Auto) Salicylates 03/10/17 03/10/17 03/11/17 17:53 23:47 05:18 WBC RBC Hgb Hct MCV MCH RDW Plt Count Lymph % (Auto) [place] % (Auto) Eos % (Auto) [place] # Seg Neutrophils % Seg Neuts % (Manual) Lymphocytes % (Manual) Seg Neutrophils # Seg Neutrophils # Man Lymphocytes # (Manual) APTT POC ABG pH ABG pH POC ABG pCO2 POC ABG pO2 ABG pO2 ABG HCO3 ABG Base Excess ABG Hemoglobin VBG pH Oxyhemoglobin Sodium Potassium Chloride Carbon Dioxide BUN Creatinine Glucose POC Glucose 189 H 398 H 126 H Lactic Acid Calcium AST ALT Alkaline Phosphatase CK-MB (CK-2) CK-MB (CK-2) Rel Index Total Protein Albumin TSH Urine WBC (Auto) Salicylates 03/11/17 03/11/17 03/11/17 11:53 17:30 23:10 WBC RBC Hgb Hct MCV MCH RDW Plt Count Lymph % (Auto) [place] % (Auto) Eos % (Auto) [place] # Seg Neutrophils % Seg Neuts % (Manual) Lymphocytes % (Manual) Seg Neutrophils # Seg Neutrophils # Man Lymphocytes # (Manual) APTT POC ABG pH ABG pH POC ABG pCO2 POC ABG pO2 ABG pO2 ABG HCO3 ABG Base Excess ABG Hemoglobin VBG pH Oxyhemoglobin Sodium Potassium Chloride Carbon Dioxide BUN Creatinine Glucose POC Glucose 198 H 142 H 244 H Lactic Acid Calcium AST ALT Alkaline Phosphatase CK-MB (CK-2) CK-MB (CK-2) Rel Index Total Protein Albumin TSH Urine WBC (Auto) Salicylates 03/12/17 03/12/17 03/12/17 04:36 11:49 17:23 WBC RBC Hgb Hct MCV MCH RDW Plt Count Lymph % (Auto) [place] % (Auto) Eos % (Auto) [place] # Seg Neutrophils % Seg Neuts % (Manual) Lymphocytes % (Manual) Seg Neutrophils # Seg Neutrophils # Man Lymphocytes # (Manual) APTT POC ABG pH ABG pH POC ABG pCO2 POC ABG pO2 ABG pO2 ABG HCO3 ABG Base Excess ABG Hemoglobin VBG pH Oxyhemoglobin Sodium Potassium Chloride Carbon Dioxide BUN Creatinine Glucose POC Glucose 205 H 197 H 209 H Lactic Acid Calcium AST ALT Alkaline Phosphatase CK-MB (CK-2) CK-MB (CK-2) Rel Index Total Protein Albumin TSH Urine WBC (Auto) Salicylates 03/12/17 03/13/17 03/13/17 23:51 05:32 11:43 WBC RBC Hgb Hct MCV MCH RDW Plt Count Lymph % (Auto) [place] % (Auto) Eos % (Auto) [place] # Seg Neutrophils % Seg Neuts % (Manual) Lymphocytes % (Manual) Seg Neutrophils # Seg Neutrophils # Man Lymphocytes # (Manual) APTT POC ABG pH ABG pH POC ABG pCO2 POC ABG pO2 ABG pO2 ABG HCO3 ABG Base Excess ABG Hemoglobin VBG pH Oxyhemoglobin Sodium Potassium Chloride Carbon Dioxide BUN Creatinine Glucose POC Glucose 210 H 154 H 164 H Lactic Acid Calcium AST ALT Alkaline Phosphatase CK-MB (CK-2) CK-MB (CK-2) Rel Index Total Protein Albumin TSH Urine WBC (Auto) Salicylates 03/13/17 03/13/17 03/14/17 17:11 23:26 05:42 WBC RBC Hgb Hct MCV MCH RDW Plt Count Lymph % (Auto) [place] % (Auto) Eos % (Auto) [place] # Seg Neutrophils % Seg Neuts % (Manual) Lymphocytes % (Manual) Seg Neutrophils # Seg Neutrophils # Man Lymphocytes # (Manual) APTT POC ABG pH ABG pH POC ABG pCO2 POC ABG pO2 ABG pO2 ABG HCO3 ABG Base Excess ABG Hemoglobin VBG pH Oxyhemoglobin Sodium Potassium Chloride Carbon Dioxide BUN Creatinine Glucose POC Glucose 195 H 240 H 230 H Lactic Acid Calcium AST ALT Alkaline Phosphatase CK-MB (CK-2) CK-MB (CK-2) Rel Index Total Protein Albumin TSH Urine WBC (Auto) Salicylates 03/14/17 03/14/17 03/14/17 14:04 17:34 23:42 WBC RBC Hgb Hct MCV MCH RDW Plt Count Lymph % (Auto) [place] % (Auto) Eos % (Auto) [place] # Seg Neutrophils % Seg Neuts % (Manual) Lymphocytes % (Manual) Seg Neutrophils # Seg Neutrophils # Man Lymphocytes # (Manual) APTT POC ABG pH ABG pH POC ABG pCO2 POC ABG pO2 ABG pO2 ABG HCO3 ABG Base Excess ABG Hemoglobin VBG pH Oxyhemoglobin Sodium Potassium Chloride Carbon Dioxide BUN Creatinine Glucose POC Glucose 227 H 186 H 225 H Lactic Acid Calcium AST ALT Alkaline Phosphatase CK-MB (CK-2) CK-MB (CK-2) Rel Index Total Protein Albumin TSH Urine WBC (Auto) Salicylates 03/15/17 03/15/17 03/15/17 05:21 17:13 21:37 WBC RBC Hgb Hct MCV MCH RDW Plt Count Lymph % (Auto) [place] % (Auto) Eos % (Auto) [place] # Seg Neutrophils % Seg Neuts % (Manual) Lymphocytes % (Manual) Seg Neutrophils # Seg Neutrophils # Man Lymphocytes # (Manual) APTT POC ABG pH ABG pH POC ABG pCO2 POC ABG pO2 ABG pO2 ABG HCO3 ABG Base Excess ABG Hemoglobin VBG pH Oxyhemoglobin Sodium Potassium Chloride Carbon Dioxide BUN Creatinine Glucose POC Glucose 244 H 203 H 216 H Lactic Acid Calcium AST ALT Alkaline Phosphatase CK-MB (CK-2) CK-MB (CK-2) Rel Index Total Protein Albumin TSH Urine WBC (Auto) Salicylates 03/16/17 03/16/17 03/16/17 05:52 18:07 21:54 WBC RBC Hgb Hct MCV MCH RDW Plt Count Lymph % (Auto) [place] % (Auto) Eos % (Auto) [place] # Seg Neutrophils % Seg Neuts % (Manual) Lymphocytes % (Manual) Seg Neutrophils # Seg Neutrophils # Man Lymphocytes # (Manual) APTT POC ABG pH ABG pH POC ABG pCO2 POC ABG pO2 ABG pO2 ABG HCO3 ABG Base Excess ABG Hemoglobin VBG pH Oxyhemoglobin Sodium Potassium Chloride Carbon Dioxide BUN Creatinine Glucose POC Glucose 248 H 254 H 244 H Lactic Acid Calcium AST ALT Alkaline Phosphatase CK-MB (CK-2) CK-MB (CK-2) Rel Index Total Protein Albumin TSH Urine WBC (Auto) Salicylates 03/17/17 03/17/17 03/17/17 07:07 07:42 07:43 WBC RBC Hgb 9.7 L Hct 29.1 L MCV 78 L MCH 26 L RDW 17.4 H Plt Count Lymph % (Auto) [place] % (Auto) Eos % (Auto) [place] # Seg Neutrophils % Seg Neuts % (Manual) Lymphocytes % (Manual) Seg Neutrophils # Seg Neutrophils # Man Lymphocytes # (Manual) APTT POC ABG pH ABG pH POC ABG pCO2 POC ABG pO2 ABG pO2 ABG HCO3 ABG Base Excess ABG Hemoglobin VBG pH Oxyhemoglobin Sodium Potassium Chloride 96.6 L Carbon Dioxide BUN 30 H Creatinine 0.5 L Glucose 251 H POC Glucose 222 H Lactic Acid Calcium AST ALT Alkaline Phosphatase CK-MB (CK-2) CK-MB (CK-2) Rel Index Total Protein Albumin TSH Urine WBC (Auto) Salicylates 03/17/17 03/17/17 03/18/17 14:08 21:20 14:24 WBC RBC Hgb Hct MCV MCH RDW Plt Count Lymph % (Auto) [place] % (Auto) Eos % (Auto) [place] # Seg Neutrophils % Seg Neuts % (Manual) Lymphocytes % (Manual) Seg Neutrophils # Seg Neutrophils # Man Lymphocytes # (Manual) APTT POC ABG pH ABG pH POC ABG pCO2 POC ABG pO2 ABG pO2 ABG HCO3 ABG Base Excess ABG Hemoglobin VBG pH Oxyhemoglobin Sodium Potassium Chloride Carbon Dioxide BUN Creatinine Glucose POC Glucose 281 H 239 H 195 H Lactic Acid Calcium AST ALT Alkaline Phosphatase CK-MB (CK-2) CK-MB (CK-2) Rel Index Total Protein Albumin TSH Urine WBC (Auto) Salicylates 03/18/17 03/19/17 03/19/17 21:37 04:57 14:23 WBC RBC Hgb Hct MCV MCH RDW Plt Count Lymph % (Auto) [place] % (Auto) Eos % (Auto) [place] # Seg Neutrophils % Seg Neuts % (Manual) Lymphocytes % (Manual) Seg Neutrophils # Seg Neutrophils # Man Lymphocytes # (Manual) APTT POC ABG pH ABG pH POC ABG pCO2 POC ABG pO2 ABG pO2 ABG HCO3 ABG Base Excess ABG Hemoglobin VBG pH Oxyhemoglobin Sodium Potassium Chloride Carbon Dioxide BUN Creatinine Glucose POC Glucose 227 H 205 H 277 H Lactic Acid Calcium AST ALT Alkaline Phosphatase CK-MB (CK-2) CK-MB (CK-2) Rel Index Total Protein Albumin TSH Urine WBC (Auto) Salicylates 03/19/17 03/19/17 03/20/17 20:31 21:47 04:55 WBC RBC Hgb Hct MCV MCH RDW Plt Count Lymph % (Auto) [place] % (Auto) Eos % (Auto) [place] # Seg Neutrophils % Seg Neuts % (Manual) Lymphocytes % (Manual) Seg Neutrophils # Seg Neutrophils # Man Lymphocytes # (Manual) APTT POC ABG pH ABG pH POC ABG pCO2 POC ABG pO2 ABG pO2 ABG HCO3 ABG Base Excess ABG Hemoglobin VBG pH Oxyhemoglobin Sodium Potassium Chloride Carbon Dioxide BUN Creatinine Glucose POC Glucose 256 H 270 H 202 H Lactic Acid Calcium AST ALT Alkaline Phosphatase CK-MB (CK-2) CK-MB (CK-2) Rel Index Total Protein Albumin TSH Urine WBC (Auto) Salicylates 03/20/17 03/20/17 03/21/17 14:09 21:40 05:09 WBC RBC Hgb Hct MCV MCH RDW Plt Count Lymph % (Auto) [place] % (Auto) Eos % (Auto) [place] # Seg Neutrophils % Seg Neuts % (Manual) Lymphocytes % (Manual) Seg Neutrophils # Seg Neutrophils # Man Lymphocytes # (Manual) APTT POC ABG pH ABG pH POC ABG pCO2 POC ABG pO2 ABG pO2 ABG HCO3 ABG Base Excess ABG Hemoglobin VBG pH Oxyhemoglobin Sodium Potassium Chloride Carbon Dioxide BUN Creatinine Glucose POC Glucose 200 H 214 H 233 H Lactic Acid Calcium AST ALT Alkaline Phosphatase CK-MB (CK-2) CK-MB (CK-2) Rel Index Total Protein Albumin TSH Urine WBC (Auto) Salicylates 03/21/17 03/21/17 03/22/17 14:06 21:26 05:43 WBC RBC Hgb Hct MCV MCH RDW Plt Count Lymph % (Auto) [place] % (Auto) Eos % (Auto) [place] # Seg Neutrophils % Seg Neuts % (Manual) Lymphocytes % (Manual) Seg Neutrophils # Seg Neutrophils # Man Lymphocytes # (Manual) APTT POC ABG pH ABG pH POC ABG pCO2 POC ABG pO2 ABG pO2 ABG HCO3 ABG Base Excess ABG Hemoglobin VBG pH Oxyhemoglobin Sodium Potassium Chloride Carbon Dioxide BUN Creatinine Glucose POC Glucose 250 H 155 H 251 H Lactic Acid Calcium AST ALT Alkaline Phosphatase CK-MB (CK-2) CK-MB (CK-2) Rel Index Total Protein Albumin TSH Urine WBC (Auto) Salicylates 03/22/17 03/22/17 03/23/17 13:46 21:16 00:23 WBC RBC Hgb Hct MCV MCH RDW Plt Count Lymph % (Auto) [place] % (Auto) Eos % (Auto) [place] # Seg Neutrophils % Seg Neuts % (Manual) Lymphocytes % (Manual) Seg Neutrophils # Seg Neutrophils # Man Lymphocytes # (Manual) APTT POC ABG pH ABG pH POC ABG pCO2 POC ABG pO2 ABG pO2 ABG HCO3 ABG Base Excess ABG Hemoglobin VBG pH Oxyhemoglobin Sodium Potassium Chloride Carbon Dioxide BUN Creatinine Glucose POC Glucose 269 H 197 H 126 H Lactic Acid Calcium AST ALT Alkaline Phosphatase CK-MB (CK-2) CK-MB (CK-2) Rel Index Total Protein Albumin TSH Urine WBC (Auto) Salicylates 03/23/17 03/23/17 03/23/17 05:39 14:06 21:39 WBC RBC Hgb Hct MCV MCH RDW Plt Count Lymph % (Auto) [place] % (Auto) Eos % (Auto) [place] # Seg Neutrophils % Seg Neuts % (Manual) Lymphocytes % (Manual) Seg Neutrophils # Seg Neutrophils # Man Lymphocytes # (Manual) APTT POC ABG pH ABG pH POC ABG pCO2 POC ABG pO2 ABG pO2 ABG HCO3 ABG Base Excess ABG Hemoglobin VBG pH Oxyhemoglobin Sodium Potassium Chloride Carbon Dioxide BUN Creatinine Glucose POC Glucose 234 H 241 H 248 H Lactic Acid Calcium AST ALT Alkaline Phosphatase CK-MB (CK-2) CK-MB (CK-2) Rel Index Total Protein Albumin TSH Urine WBC (Auto) Salicylates 03/24/17 03/24/17 03/25/17 05:06 21:46 05:38 WBC RBC Hgb Hct MCV MCH RDW Plt Count Lymph % (Auto) [place] % (Auto) Eos % (Auto) [place] # Seg Neutrophils % Seg Neuts % (Manual) Lymphocytes % (Manual) Seg Neutrophils # Seg Neutrophils # Man Lymphocytes # (Manual) APTT POC ABG pH ABG pH POC ABG pCO2 POC ABG pO2 ABG pO2 ABG HCO3 ABG Base Excess ABG Hemoglobin VBG pH Oxyhemoglobin Sodium Potassium Chloride Carbon Dioxide BUN Creatinine Glucose POC Glucose 232 H 276 H 242 H Lactic Acid Calcium AST ALT Alkaline Phosphatase CK-MB (CK-2) CK-MB (CK-2) Rel Index Total Protein Albumin TSH Urine WBC (Auto) Salicylates 03/25/17 03/25/17 03/26/17 14:30 23:14 13:53 WBC RBC Hgb Hct MCV MCH RDW Plt Count Lymph % (Auto) [place] % (Auto) Eos % (Auto) [place] # Seg Neutrophils % Seg Neuts % (Manual) Lymphocytes % (Manual) Seg Neutrophils # Seg Neutrophils # Man Lymphocytes # (Manual) APTT POC ABG pH ABG pH POC ABG pCO2 POC ABG pO2 ABG pO2 ABG HCO3 ABG Base Excess ABG Hemoglobin VBG pH Oxyhemoglobin Sodium Potassium Chloride Carbon Dioxide BUN Creatinine Glucose POC Glucose 246 H 208 H 195 H Lactic Acid Calcium AST ALT Alkaline Phosphatase CK-MB (CK-2) CK-MB (CK-2) Rel Index Total Protein Albumin TSH Urine WBC (Auto) Salicylates 03/26/17 03/27/17 03/27/17 21:58 05:18 14:57 WBC RBC Hgb Hct MCV MCH RDW Plt Count Lymph % (Auto) [place] % (Auto) Eos % (Auto) [place] # Seg Neutrophils % Seg Neuts % (Manual) Lymphocytes % (Manual) Seg Neutrophils # Seg Neutrophils # Man Lymphocytes # (Manual) APTT POC ABG pH ABG pH POC ABG pCO2 POC ABG pO2 ABG pO2 ABG HCO3 ABG Base Excess ABG Hemoglobin VBG pH Oxyhemoglobin Sodium Potassium Chloride Carbon Dioxide BUN Creatinine Glucose POC Glucose 241 H 199 H 269 H Lactic Acid Calcium AST ALT Alkaline Phosphatase CK-MB (CK-2) CK-MB (CK-2) Rel Index Total Protein Albumin TSH Urine WBC (Auto) Salicylates 03/27/17 03/28/17 03/28/17 21:33 13:52 21:29 WBC RBC Hgb Hct MCV MCH RDW Plt Count Lymph % (Auto) [place] % (Auto) Eos % (Auto) [place] # Seg Neutrophils % Seg Neuts % (Manual) Lymphocytes % (Manual) Seg Neutrophils # Seg Neutrophils # Man Lymphocytes # (Manual) APTT POC ABG pH ABG pH POC ABG pCO2 POC ABG pO2 ABG pO2 ABG HCO3 ABG Base Excess ABG Hemoglobin VBG pH Oxyhemoglobin Sodium Potassium Chloride Carbon Dioxide BUN Creatinine Glucose POC Glucose 214 H 243 H 286 H Lactic Acid Calcium AST ALT Alkaline Phosphatase CK-MB (CK-2) CK-MB (CK-2) Rel Index Total Protein Albumin TSH Urine WBC (Auto) Salicylates 03/29/17 03/29/17 03/29/17 04:32 04:32 13:58 WBC RBC Hgb 10.6 L Hct 32.9 L MCV 78 L MCH 25 L RDW 17.6 H Plt Count Lymph % (Auto) 38.0 H [place] % (Auto) 9.7 H Eos % (Auto) [place] # Seg Neutrophils % Seg Neuts % (Manual) Lymphocytes % (Manual) Seg Neutrophils # Seg Neutrophils # Man Lymphocytes # (Manual) APTT POC ABG pH ABG pH POC ABG pCO2 POC ABG pO2 ABG pO2 ABG HCO3 ABG Base Excess ABG Hemoglobin VBG pH Oxyhemoglobin Sodium 132 L Potassium Chloride 94.0 L Carbon Dioxide BUN 28 H Creatinine 0.5 L Glucose 236 H POC Glucose 171 H Lactic Acid Calcium AST ALT 71 H Alkaline Phosphatase 391 H CK-MB (CK-2) CK-MB (CK-2) Rel Index Total Protein 8.3 H Albumin 2.9 L TSH Urine WBC (Auto) Salicylates 03/29/17 03/30/17 03/30/17 20:59 06:07 11:52 WBC RBC Hgb Hct MCV MCH RDW Plt Count Lymph % (Auto) [place] % (Auto) Eos % (Auto) [place] # Seg Neutrophils % Seg Neuts % (Manual) Lymphocytes % (Manual) Seg Neutrophils # Seg Neutrophils # Man Lymphocytes # (Manual) APTT POC ABG pH ABG pH POC ABG pCO2 POC ABG pO2 ABG pO2 ABG HCO3 ABG Base Excess ABG Hemoglobin VBG pH Oxyhemoglobin Sodium Potassium Chloride Carbon Dioxide BUN Creatinine Glucose POC Glucose 215 H 259 H 197 H Lactic Acid Calcium AST ALT Alkaline Phosphatase CK-MB (CK-2) CK-MB (CK-2) Rel Index Total Protein Albumin TSH Urine WBC (Auto) Salicylates 03/30/17 03/31/17 03/31/17 21:34 05:42 14:34 WBC RBC Hgb Hct MCV MCH RDW Plt Count Lymph % (Auto) [place] % (Auto) Eos % (Auto) [place] # Seg Neutrophils % Seg Neuts % (Manual) Lymphocytes % (Manual) Seg Neutrophils # Seg Neutrophils # Man Lymphocytes # (Manual) APTT POC ABG pH ABG pH POC ABG pCO2 POC ABG pO2 ABG pO2 ABG HCO3 ABG Base Excess ABG Hemoglobin VBG pH Oxyhemoglobin Sodium Potassium Chloride Carbon Dioxide BUN Creatinine Glucose POC Glucose 207 H 184 H 213 H Lactic Acid Calcium AST ALT Alkaline Phosphatase CK-MB (CK-2) CK-MB (CK-2) Rel Index Total Protein Albumin TSH Urine WBC (Auto) Salicylates 03/31/17 04/01/17 04/01/17 21:32 05:53 13:48 WBC RBC Hgb Hct MCV MCH RDW Plt Count Lymph % (Auto) [place] % (Auto) Eos % (Auto) [place] # Seg Neutrophils % Seg Neuts % (Manual) Lymphocytes % (Manual) Seg Neutrophils # Seg Neutrophils # Man Lymphocytes # (Manual) APTT POC ABG pH ABG pH POC ABG pCO2 POC ABG pO2 ABG pO2 ABG HCO3 ABG Base Excess ABG Hemoglobin VBG pH Oxyhemoglobin Sodium Potassium Chloride Carbon Dioxide BUN Creatinine Glucose POC Glucose 249 H 225 H 256 H Lactic Acid Calcium AST ALT Alkaline Phosphatase CK-MB (CK-2) CK-MB (CK-2) Rel Index Total Protein Albumin TSH Urine WBC (Auto) Salicylates 04/01/17 04/02/17 04/02/17 21:34 05:32 14:05 WBC RBC Hgb Hct MCV MCH RDW Plt Count Lymph % (Auto) [place] % (Auto) Eos % (Auto) [place] # Seg Neutrophils % Seg Neuts % (Manual) Lymphocytes % (Manual) Seg Neutrophils # Seg Neutrophils # Man Lymphocytes # (Manual) APTT POC ABG pH ABG pH POC ABG pCO2 POC ABG pO2 ABG pO2 ABG HCO3 ABG Base Excess ABG Hemoglobin VBG pH Oxyhemoglobin Sodium Potassium Chloride Carbon Dioxide BUN Creatinine Glucose POC Glucose 292 H 220 H 187 H Lactic Acid Calcium AST ALT Alkaline Phosphatase CK-MB (CK-2) CK-MB (CK-2) Rel Index Total Protein Albumin TSH Urine WBC (Auto) Salicylates 04/02/17 04/03/17 04/03/17 21:57 04:49 14:12 WBC RBC Hgb Hct MCV MCH RDW Plt Count Lymph % (Auto) [place] % (Auto) Eos % (Auto) [place] # Seg Neutrophils % Seg Neuts % (Manual) Lymphocytes % (Manual) Seg Neutrophils # Seg Neutrophils # Man Lymphocytes # (Manual) APTT POC ABG pH ABG pH POC ABG pCO2 POC ABG pO2 ABG pO2 ABG HCO3 ABG Base Excess ABG Hemoglobin VBG pH Oxyhemoglobin Sodium Potassium Chloride Carbon Dioxide BUN Creatinine Glucose POC Glucose 285 H 256 H 197 H Lactic Acid Calcium AST ALT Alkaline Phosphatase CK-MB (CK-2) CK-MB (CK-2) Rel Index Total Protein Albumin TSH Urine WBC (Auto) Salicylates 04/03/17 04/04/17 04/04/17 21:11 05:20 13:18 WBC RBC Hgb Hct MCV MCH RDW Plt Count Lymph % (Auto) [place] % (Auto) Eos % (Auto) [place] # Seg Neutrophils % Seg Neuts % (Manual) Lymphocytes % (Manual) Seg Neutrophils # Seg Neutrophils # Man Lymphocytes # (Manual) APTT POC ABG pH ABG pH POC ABG pCO2 POC ABG pO2 ABG pO2 ABG HCO3 ABG Base Excess ABG Hemoglobin VBG pH Oxyhemoglobin Sodium Potassium Chloride Carbon Dioxide BUN Creatinine Glucose POC Glucose 166 H 228 H 252 H Lactic Acid Calcium AST ALT Alkaline Phosphatase CK-MB (CK-2) CK-MB (CK-2) Rel Index Total Protein Albumin TSH Urine WBC (Auto) Salicylates 04/04/17 04/05/17 04/05/17 21:51 06:14 09:54 WBC RBC Hgb Hct MCV MCH RDW Plt Count Lymph % (Auto) [place] % (Auto) Eos % (Auto) [place] # Seg Neutrophils % Seg Neuts % (Manual) Lymphocytes % (Manual) Seg Neutrophils # Seg Neutrophils # Man Lymphocytes # (Manual) APTT POC ABG pH ABG pH POC ABG pCO2 POC ABG pO2 ABG pO2 ABG HCO3 ABG Base Excess ABG Hemoglobin VBG pH Oxyhemoglobin Sodium Potassium Chloride Carbon Dioxide BUN Creatinine Glucose POC Glucose 252 H 152 H 181 H Lactic Acid Calcium AST ALT Alkaline Phosphatase CK-MB (CK-2) CK-MB (CK-2) Rel Index Total Protein Albumin TSH Urine WBC (Auto) Salicylates 04/05/17 04/05/17 04/05/17 14:49 17:34 21:38 WBC RBC Hgb Hct MCV MCH RDW Plt Count Lymph % (Auto) [place] % (Auto) Eos % (Auto) [place] # Seg Neutrophils % Seg Neuts % (Manual) Lymphocytes % (Manual) Seg Neutrophils # Seg Neutrophils # Man Lymphocytes # (Manual) APTT POC ABG pH ABG pH POC ABG pCO2 POC ABG pO2 ABG pO2 ABG HCO3 ABG Base Excess ABG Hemoglobin VBG pH Oxyhemoglobin Sodium Potassium Chloride Carbon Dioxide BUN Creatinine Glucose POC Glucose 219 H 268 H 278 H Lactic Acid Calcium AST ALT Alkaline Phosphatase CK-MB (CK-2) CK-MB (CK-2) Rel Index Total Protein Albumin TSH Urine WBC (Auto) Salicylates 04/06/17 04/06/17 04/07/17 15:04 22:14 05:09 WBC RBC Hgb Hct MCV MCH RDW Plt Count Lymph % (Auto) [place] % (Auto) Eos % (Auto) [place] # Seg Neutrophils % Seg Neuts % (Manual) Lymphocytes % (Manual) Seg Neutrophils # Seg Neutrophils # Man Lymphocytes # (Manual) APTT POC ABG pH ABG pH POC ABG pCO2 POC ABG pO2 ABG pO2 ABG HCO3 ABG Base Excess ABG Hemoglobin VBG pH Oxyhemoglobin Sodium Potassium Chloride Carbon Dioxide BUN Creatinine Glucose POC Glucose 285 H 106 H 334 H Lactic Acid Calcium AST ALT Alkaline Phosphatase CK-MB (CK-2) CK-MB (CK-2) Rel Index Total Protein Albumin TSH Urine WBC (Auto) Salicylates 04/07/17 04/07/17 04/08/17 14:45 21:48 05:28 WBC RBC Hgb Hct MCV MCH RDW Plt Count Lymph % (Auto) [place] % (Auto) Eos % (Auto) [place] # Seg Neutrophils % Seg Neuts % (Manual) Lymphocytes % (Manual) Seg Neutrophils # Seg Neutrophils # Man Lymphocytes # (Manual) APTT POC ABG pH ABG pH POC ABG pCO2 POC ABG pO2 ABG pO2 ABG HCO3 ABG Base Excess ABG Hemoglobin VBG pH Oxyhemoglobin Sodium Potassium Chloride Carbon Dioxide BUN Creatinine Glucose POC Glucose 173 H 304 H 314 H Lactic Acid Calcium AST ALT Alkaline Phosphatase CK-MB (CK-2) CK-MB (CK-2) Rel Index Total Protein Albumin TSH Urine WBC (Auto) Salicylates 04/08/17 04/08/17 04/08/17 15:57 16:17 22:21 WBC RBC Hgb Hct MCV MCH RDW Plt Count Lymph % (Auto) [place] % (Auto) Eos % (Auto) [place] # Seg Neutrophils % Seg Neuts % (Manual) Lymphocytes % (Manual) Seg Neutrophils # Seg Neutrophils # Man Lymphocytes # (Manual) APTT POC ABG pH ABG pH POC ABG pCO2 POC ABG pO2 ABG pO2 ABG HCO3 ABG Base Excess ABG Hemoglobin VBG pH Oxyhemoglobin Sodium Potassium Chloride Carbon Dioxide BUN Creatinine Glucose POC Glucose 356 H 337 H 323 H Lactic Acid Calcium AST ALT Alkaline Phosphatase CK-MB (CK-2) CK-MB (CK-2) Rel Index Total Protein Albumin TSH Urine WBC (Auto) Salicylates 04/09/17 04/09/17 04/09/17 06:19 15:30 21:52 WBC RBC Hgb Hct MCV MCH RDW Plt Count Lymph % (Auto) [place] % (Auto) Eos % (Auto) [place] # Seg Neutrophils % Seg Neuts % (Manual) Lymphocytes % (Manual) Seg Neutrophils # Seg Neutrophils # Man Lymphocytes # (Manual) APTT POC ABG pH ABG pH POC ABG pCO2 POC ABG pO2 ABG pO2 ABG HCO3 ABG Base Excess ABG Hemoglobin VBG pH Oxyhemoglobin Sodium Potassium Chloride Carbon Dioxide BUN Creatinine Glucose POC Glucose 340 H 332 H 341 H Lactic Acid Calcium AST ALT Alkaline Phosphatase CK-MB (CK-2) CK-MB (CK-2) Rel Index Total Protein Albumin TSH Urine WBC (Auto) Salicylates 04/10/17 04/10/17 04/10/17 01:53 05:33 17:40 WBC RBC Hgb Hct MCV MCH RDW Plt Count Lymph % (Auto) [place] % (Auto) Eos % (Auto) [place] # Seg Neutrophils % Seg Neuts % (Manual) Lymphocytes % (Manual) Seg Neutrophils # Seg Neutrophils # Man Lymphocytes # (Manual) APTT POC ABG pH ABG pH POC ABG pCO2 POC ABG pO2 ABG pO2 ABG HCO3 ABG Base Excess ABG Hemoglobin VBG pH Oxyhemoglobin Sodium Potassium Chloride Carbon Dioxide BUN Creatinine Glucose POC Glucose 261 H 277 H 304 H Lactic Acid Calcium AST ALT Alkaline Phosphatase CK-MB (CK-2) CK-MB (CK-2) Rel Index Total Protein Albumin TSH Urine WBC (Auto) Salicylates 04/10/17 04/11/17 04/11/17 21:29 05:28 14:02 WBC RBC Hgb Hct MCV MCH RDW Plt Count Lymph % (Auto) [place] % (Auto) Eos % (Auto) [place] # Seg Neutrophils % Seg Neuts % (Manual) Lymphocytes % (Manual) Seg Neutrophils # Seg Neutrophils # Man Lymphocytes # (Manual) APTT POC ABG pH ABG pH POC ABG pCO2 POC ABG pO2 ABG pO2 ABG HCO3 ABG Base Excess ABG Hemoglobin VBG pH Oxyhemoglobin Sodium Potassium Chloride Carbon Dioxide BUN Creatinine Glucose POC Glucose 361 H 204 H 236 H Lactic Acid Calcium AST ALT Alkaline Phosphatase CK-MB (CK-2) CK-MB (CK-2) Rel Index Total Protein Albumin TSH Urine WBC (Auto) Salicylates 04/11/17 04/12/17 04/12/17 21:43 05:00 11:53 WBC RBC Hgb Hct MCV MCH RDW Plt Count Lymph % (Auto) [place] % (Auto) Eos % (Auto) [place] # Seg Neutrophils % Seg Neuts % (Manual) Lymphocytes % (Manual) Seg Neutrophils # Seg Neutrophils # Man Lymphocytes # (Manual) APTT POC ABG pH ABG pH POC ABG pCO2 POC ABG pO2 ABG pO2 ABG HCO3 ABG Base Excess ABG Hemoglobin VBG pH Oxyhemoglobin Sodium Potassium Chloride Carbon Dioxide BUN Creatinine Glucose POC Glucose 287 H 294 H 265 H Lactic Acid Calcium AST ALT Alkaline Phosphatase CK-MB (CK-2) CK-MB (CK-2) Rel Index Total Protein Albumin TSH Urine WBC (Auto) Salicylates 04/12/17 04/12/17 04/13/17 21:21 23:44 06:05 WBC RBC Hgb Hct MCV MCH RDW Plt Count Lymph % (Auto) [place] % (Auto) Eos % (Auto) [place] # Seg Neutrophils % Seg Neuts % (Manual) Lymphocytes % (Manual) Seg Neutrophils # Seg Neutrophils # Man Lymphocytes # (Manual) APTT POC ABG pH ABG pH POC ABG pCO2 POC ABG pO2 ABG pO2 ABG HCO3 ABG Base Excess ABG Hemoglobin VBG pH Oxyhemoglobin Sodium Potassium Chloride Carbon Dioxide BUN Creatinine Glucose POC Glucose 289 H 348 H 326 H Lactic Acid Calcium AST ALT Alkaline Phosphatase CK-MB (CK-2) CK-MB (CK-2) Rel Index Total Protein Albumin TSH Urine WBC (Auto) Salicylates 04/13/17 04/13/17 04/14/17 13:54 21:15 05:49 WBC RBC Hgb Hct MCV MCH RDW Plt Count Lymph % (Auto) [place] % (Auto) Eos % (Auto) [place] # Seg Neutrophils % Seg Neuts % (Manual) Lymphocytes % (Manual) Seg Neutrophils # Seg Neutrophils # Man Lymphocytes # (Manual) APTT POC ABG pH ABG pH POC ABG pCO2 POC ABG pO2 ABG pO2 ABG HCO3 ABG Base Excess ABG Hemoglobin VBG pH Oxyhemoglobin Sodium Potassium Chloride Carbon Dioxide BUN Creatinine Glucose POC Glucose 326 H 263 H 319 H Lactic Acid Calcium AST ALT Alkaline Phosphatase CK-MB (CK-2) CK-MB (CK-2) Rel Index Total Protein Albumin TSH Urine WBC (Auto) Salicylates 04/14/17 04/14/17 04/15/17 13:26 23:13 14:24 WBC RBC Hgb Hct MCV MCH RDW Plt Count Lymph % (Auto) [place] % (Auto) Eos % (Auto) [place] # Seg Neutrophils % Seg Neuts % (Manual) Lymphocytes % (Manual) Seg Neutrophils # Seg Neutrophils # Man Lymphocytes # (Manual) APTT POC ABG pH ABG pH POC ABG pCO2 POC ABG pO2 ABG pO2 ABG HCO3 ABG Base Excess ABG Hemoglobin VBG pH Oxyhemoglobin Sodium Potassium Chloride Carbon Dioxide BUN Creatinine Glucose POC Glucose 207 H 365 H 308 H Lactic Acid Calcium AST ALT Alkaline Phosphatase CK-MB (CK-2) CK-MB (CK-2) Rel Index Total Protein Albumin TSH Urine WBC (Auto) Salicylates 04/15/17 04/15/17 04/15/17 21:00 22:18 23:12 WBC RBC Hgb Hct MCV MCH RDW Plt Count Lymph % (Auto) [place] % (Auto) Eos % (Auto) [place] # Seg Neutrophils % Seg Neuts % (Manual) Lymphocytes % (Manual) Seg Neutrophils # Seg Neutrophils # Man Lymphocytes # (Manual) APTT POC ABG pH ABG pH POC ABG pCO2 POC ABG pO2 ABG pO2 ABG HCO3 ABG Base Excess ABG Hemoglobin VBG pH Oxyhemoglobin Sodium Potassium Chloride Carbon Dioxide BUN Creatinine Glucose POC Glucose 407 H 287 H 325 H Lactic Acid Calcium AST ALT Alkaline Phosphatase CK-MB (CK-2) CK-MB (CK-2) Rel Index Total Protein Albumin TSH Urine WBC (Auto) Salicylates 04/16/17 04/16/17 04/16/17 05:30 10:07 14:26 WBC RBC Hgb Hct MCV MCH RDW Plt Count Lymph % (Auto) [place] % (Auto) Eos % (Auto) [place] # Seg Neutrophils % Seg Neuts % (Manual) Lymphocytes % (Manual) Seg Neutrophils # Seg Neutrophils # Man Lymphocytes # (Manual) APTT POC ABG pH ABG pH POC ABG pCO2 POC ABG pO2 ABG pO2 ABG HCO3 ABG Base Excess ABG Hemoglobin VBG pH Oxyhemoglobin Sodium Potassium Chloride Carbon Dioxide BUN Creatinine Glucose POC Glucose 304 H 217 H 344 H Lactic Acid Calcium AST ALT Alkaline Phosphatase CK-MB (CK-2) CK-MB (CK-2) Rel Index Total Protein Albumin TSH Urine WBC (Auto) Salicylates 04/16/17 04/17/17 04/17/17 21:25 05:12 14:19 WBC RBC Hgb Hct MCV MCH RDW Plt Count Lymph % (Auto) [place] % (Auto) Eos % (Auto) [place] # Seg Neutrophils % Seg Neuts % (Manual) Lymphocytes % (Manual) Seg Neutrophils # Seg Neutrophils # Man Lymphocytes # (Manual) APTT POC ABG pH ABG pH POC ABG pCO2 POC ABG pO2 ABG pO2 ABG HCO3 ABG Base Excess ABG Hemoglobin VBG pH Oxyhemoglobin Sodium Potassium Chloride Carbon Dioxide BUN Creatinine Glucose POC Glucose 305 H 233 H 324 H Lactic Acid Calcium AST ALT Alkaline Phosphatase CK-MB (CK-2) CK-MB (CK-2) Rel Index Total Protein Albumin TSH Urine WBC (Auto) Salicylates 04/17/17 04/18/17 04/18/17 21:42 06:21 14:08 WBC RBC Hgb Hct MCV MCH RDW Plt Count Lymph % (Auto) [place] % (Auto) Eos % (Auto) [place] # Seg Neutrophils % Seg Neuts % (Manual) Lymphocytes % (Manual) Seg Neutrophils # Seg Neutrophils # Man Lymphocytes # (Manual) APTT POC ABG pH ABG pH POC ABG pCO2 POC ABG pO2 ABG pO2 ABG HCO3 ABG Base Excess ABG Hemoglobin VBG pH Oxyhemoglobin Sodium Potassium Chloride Carbon Dioxide BUN Creatinine Glucose POC Glucose 270 H 308 H 290 H Lactic Acid Calcium AST ALT Alkaline Phosphatase CK-MB (CK-2) CK-MB (CK-2) Rel Index Total Protein Albumin TSH Urine WBC (Auto) Salicylates 04/18/17 04/19/17 04/19/17 21:50 05:20 13:59 WBC RBC Hgb Hct MCV MCH RDW Plt Count Lymph % (Auto) [place] % (Auto) Eos % (Auto) [place] # Seg Neutrophils % Seg Neuts % (Manual) Lymphocytes % (Manual) Seg Neutrophils # Seg Neutrophils # Man Lymphocytes # (Manual) APTT POC ABG pH ABG pH POC ABG pCO2 POC ABG pO2 ABG pO2 ABG HCO3 ABG Base Excess ABG Hemoglobin VBG pH Oxyhemoglobin Sodium Potassium Chloride Carbon Dioxide BUN Creatinine Glucose POC Glucose 167 H 372 H 321 H Lactic Acid Calcium AST ALT Alkaline Phosphatase CK-MB (CK-2) CK-MB (CK-2) Rel Index Total Protein Albumin TSH Urine WBC (Auto) Salicylates 04/19/17 04/20/17 04/20/17 21:16 14:18 21:34 WBC RBC Hgb Hct MCV MCH RDW Plt Count Lymph % (Auto) [place] % (Auto) Eos % (Auto) [place] # Seg Neutrophils % Seg Neuts % (Manual) Lymphocytes % (Manual) Seg Neutrophils # Seg Neutrophils # Man Lymphocytes # (Manual) APTT POC ABG pH ABG pH POC ABG pCO2 POC ABG pO2 ABG pO2 ABG HCO3 ABG Base Excess ABG Hemoglobin VBG pH Oxyhemoglobin Sodium Potassium Chloride Carbon Dioxide BUN Creatinine Glucose POC Glucose 182 H 218 H 121 H Lactic Acid Calcium AST ALT Alkaline Phosphatase CK-MB (CK-2) CK-MB (CK-2) Rel Index Total Protein Albumin TSH Urine WBC (Auto) Salicylates 04/21/17 04/21/17 04/21/17 00:08 05:16 12:41 WBC RBC Hgb Hct MCV MCH RDW Plt Count Lymph % (Auto) [place] % (Auto) Eos % (Auto) [place] # Seg Neutrophils % Seg Neuts % (Manual) Lymphocytes % (Manual) Seg Neutrophils # Seg Neutrophils # Man Lymphocytes # (Manual) APTT POC ABG pH ABG pH POC ABG pCO2 POC ABG pO2 ABG pO2 ABG HCO3 ABG Base Excess ABG Hemoglobin VBG pH Oxyhemoglobin Sodium Potassium Chloride Carbon Dioxide BUN Creatinine Glucose POC Glucose 128 H 120 H 216 H Lactic Acid Calcium AST ALT Alkaline Phosphatase CK-MB (CK-2) CK-MB (CK-2) Rel Index Total Protein Albumin TSH Urine WBC (Auto) Salicylates 04/21/17 04/22/17 04/22/17 23:40 14:12 23:38 WBC RBC Hgb Hct MCV MCH RDW Plt Count Lymph % (Auto) [place] % (Auto) Eos % (Auto) [place] # Seg Neutrophils % Seg Neuts % (Manual) Lymphocytes % (Manual) Seg Neutrophils # Seg Neutrophils # Man Lymphocytes # (Manual) APTT POC ABG pH ABG pH POC ABG pCO2 POC ABG pO2 ABG pO2 ABG HCO3 ABG Base Excess ABG Hemoglobin VBG pH Oxyhemoglobin Sodium Potassium Chloride Carbon Dioxide BUN Creatinine Glucose POC Glucose 157 H 242 H 117 H Lactic Acid Calcium AST ALT Alkaline Phosphatase CK-MB (CK-2) CK-MB (CK-2) Rel Index Total Protein Albumin TSH Urine WBC (Auto) Salicylates 04/23/17 04/23/17 04/24/17 05:18 14:01 03:24 WBC RBC Hgb Hct MCV MCH RDW Plt Count Lymph % (Auto) [place] % (Auto) Eos % (Auto) [place] # Seg Neutrophils % Seg Neuts % (Manual) Lymphocytes % (Manual) Seg Neutrophils # Seg Neutrophils # Man Lymphocytes # (Manual) APTT POC ABG pH ABG pH POC ABG pCO2 POC ABG pO2 ABG pO2 ABG HCO3 ABG Base Excess ABG Hemoglobin VBG pH Oxyhemoglobin Sodium Potassium Chloride Carbon Dioxide BUN Creatinine Glucose POC Glucose 163 H 57 L 177 H Lactic Acid Calcium AST ALT Alkaline Phosphatase CK-MB (CK-2) CK-MB (CK-2) Rel Index Total Protein Albumin TSH Urine WBC (Auto) Salicylates 04/24/17 04/24/17 04/24/17 04:00 04:00 06:33 WBC RBC Hgb 9.9 L Hct 30.0 L MCV 79 L MCH 26 L RDW 17.1 H Plt Count 625 H Lymph % (Auto) [place] % (Auto) 8.4 H Eos % (Auto) [place] # Seg Neutrophils % Seg Neuts % (Manual) Lymphocytes % (Manual) Seg Neutrophils # Seg Neutrophils # Man Lymphocytes # (Manual) APTT POC ABG pH ABG pH POC ABG pCO2 POC ABG pO2 ABG pO2 ABG HCO3 ABG Base Excess ABG Hemoglobin VBG pH Oxyhemoglobin Sodium 136 L Potassium Chloride 94.9 L Carbon Dioxide BUN 40 H Creatinine 0.6 L Glucose 176 H POC Glucose 230 H Lactic Acid Calcium AST 67 H ALT Alkaline Phosphatase 294 H CK-MB (CK-2) CK-MB (CK-2) Rel Index Total Protein 9.0 H Albumin 2.5 L TSH Urine WBC (Auto) Salicylates 04/24/17 04/25/17 04/25/17 13:50 00:22 02:55 WBC RBC 3.54 L Hgb 9.0 L Hct 27.9 L MCV 79 L MCH 26 L RDW 17.5 H Plt Count 574 H Lymph % (Auto) [place] % (Auto) 10.4 H Eos % (Auto) [place] # 1.0 H Seg Neutrophils % Seg Neuts % (Manual) Lymphocytes % (Manual) Seg Neutrophils # Seg Neutrophils # Man Lymphocytes # (Manual) APTT POC ABG pH ABG pH POC ABG pCO2 POC ABG pO2 ABG pO2 ABG HCO3 ABG Base Excess ABG Hemoglobin VBG pH Oxyhemoglobin Sodium Potassium Chloride Carbon Dioxide BUN Creatinine Glucose POC Glucose 116 H < 40 L Lactic Acid Calcium AST ALT Alkaline Phosphatase CK-MB (CK-2) CK-MB (CK-2) Rel Index Total Protein Albumin TSH Urine WBC (Auto) Salicylates 04/25/17 04/25/17 04/25/17 02:55 11:15 18:36 WBC RBC Hgb Hct MCV MCH RDW Plt Count Lymph % (Auto) [place] % (Auto) Eos % (Auto) [place] # Seg Neutrophils % Seg Neuts % (Manual) Lymphocytes % (Manual) Seg Neutrophils # Seg Neutrophils # Man Lymphocytes # (Manual) APTT POC ABG pH ABG pH POC ABG pCO2 POC ABG pO2 ABG pO2 ABG HCO3 ABG Base Excess ABG Hemoglobin VBG pH Oxyhemoglobin Sodium Potassium Chloride 96.2 L Carbon Dioxide BUN 39 H Creatinine 0.7 L Glucose 125 H POC Glucose 227 H 280 H Lactic Acid Calcium AST ALT Alkaline Phosphatase 247 H CK-MB (CK-2) CK-MB (CK-2) Rel Index Total Protein Albumin 2.7 L TSH Urine WBC (Auto) Salicylates 04/25/17 04/26/17 04/26/17 21:49 06:53 07:27 WBC RBC 3.61 L Hgb 9.1 L Hct 28.1 L MCV 78 L MCH 25 L RDW 17.4 H Plt Count 594 H Lymph % (Auto) [place] % (Auto) 9.2 H Eos % (Auto) [place] # 1.0 H Seg Neutrophils % 70.6 H Seg Neuts % (Manual) Lymphocytes % (Manual) Seg Neutrophils # Seg Neutrophils # Man Lymphocytes # (Manual) APTT POC ABG pH ABG pH POC ABG pCO2 POC ABG pO2 ABG pO2 ABG HCO3 ABG Base Excess ABG Hemoglobin VBG pH Oxyhemoglobin Sodium Potassium Chloride Carbon Dioxide BUN Creatinine Glucose POC Glucose 192 H 60 L Lactic Acid Calcium AST ALT Alkaline Phosphatase CK-MB (CK-2) CK-MB (CK-2) Rel Index Total Protein Albumin TSH Urine WBC (Auto) Salicylates 04/26/17 04/26/17 04/26/17 07:27 07:28 13:32 WBC RBC Hgb Hct MCV MCH RDW Plt Count Lymph % (Auto) [place] % (Auto) Eos % (Auto) [place] # Seg Neutrophils % Seg Neuts % (Manual) Lymphocytes % (Manual) Seg Neutrophils # Seg Neutrophils # Man Lymphocytes # (Manual) APTT POC ABG pH ABG pH POC ABG pCO2 POC ABG pO2 ABG pO2 ABG HCO3 ABG Base Excess ABG Hemoglobin VBG pH Oxyhemoglobin Sodium Potassium Chloride 95.0 L Carbon Dioxide BUN 42 H Creatinine 0.7 L Glucose 172 H POC Glucose 190 H 168 H Lactic Acid Calcium AST 56 H ALT Alkaline Phosphatase 274 H CK-MB (CK-2) CK-MB (CK-2) Rel Index Total Protein 8.9 H Albumin 2.7 L TSH Urine WBC (Auto) Salicylates 04/26/17 04/27/17 04/27/17 23:36 05:10 05:10 WBC RBC 3.49 L Hgb 8.7 L Hct 27.0 L MCV 77 L MCH 25 L RDW 17.4 H Plt Count 558 H Lymph % (Auto) [place] % (Auto) 9.6 H Eos % (Auto) [place] # Seg Neutrophils % Seg Neuts % (Manual) Lymphocytes % (Manual) Seg Neutrophils # Seg Neutrophils # Man Lymphocytes # (Manual) APTT POC ABG pH ABG pH POC ABG pCO2 POC ABG pO2 ABG pO2 ABG HCO3 ABG Base Excess ABG Hemoglobin VBG pH Oxyhemoglobin Sodium 133 L Potassium Chloride 93.5 L Carbon Dioxide BUN 40 H Creatinine 0.7 L Glucose 179 H POC Glucose 204 H Lactic Acid Calcium AST 73 H ALT 58 H Alkaline Phosphatase 294 H CK-MB (CK-2) CK-MB (CK-2) Rel Index Total Protein 8.7 H Albumin 2.4 L TSH Urine WBC (Auto) Salicylates 04/27/17 04/27/17 04/27/17 05:45 14:08 23:46 WBC RBC Hgb Hct MCV MCH RDW Plt Count Lymph % (Auto) [place] % (Auto) Eos % (Auto) [place] # Seg Neutrophils % Seg Neuts % (Manual) Lymphocytes % (Manual) Seg Neutrophils # Seg Neutrophils # Man Lymphocytes # (Manual) APTT POC ABG pH ABG pH POC ABG pCO2 POC ABG pO2 ABG pO2 ABG HCO3 ABG Base Excess ABG Hemoglobin VBG pH Oxyhemoglobin Sodium Potassium Chloride Carbon Dioxide BUN Creatinine Glucose POC Glucose 200 H 206 H 207 H Lactic Acid Calcium AST ALT Alkaline Phosphatase CK-MB (CK-2) CK-MB (CK-2) Rel Index Total Protein Albumin TSH Urine WBC (Auto) Salicylates 04/28/17 04/28/17 04/28/17 04:48 04:53 05:10 WBC RBC 3.48 L Hgb 8.8 L Hct 26.7 L MCV 77 L MCH 25 L RDW 17.0 H Plt Count 515 H Lymph % (Auto) [place] % (Auto) 8.4 H Eos % (Auto) [place] # Seg Neutrophils % 70.6 H Seg Neuts % (Manual) Lymphocytes % (Manual) Seg Neutrophils # Seg Neutrophils # Man Lymphocytes # (Manual) APTT POC ABG pH ABG pH POC ABG pCO2 POC ABG pO2 ABG pO2 ABG HCO3 ABG Base Excess ABG Hemoglobin VBG pH Oxyhemoglobin Sodium Potassium Chloride Carbon Dioxide BUN Creatinine Glucose POC Glucose 43 L 41 L Lactic Acid Calcium AST ALT Alkaline Phosphatase CK-MB (CK-2) CK-MB (CK-2) Rel Index Total Protein Albumin TSH Urine WBC (Auto) Salicylates 04/28/17 04/28/17 04/28/17 05:10 14:06 22:07 WBC RBC Hgb Hct MCV MCH RDW Plt Count Lymph % (Auto) [place] % (Auto) Eos % (Auto) [place] # Seg Neutrophils % Seg Neuts % (Manual) Lymphocytes % (Manual) Seg Neutrophils # Seg Neutrophils # Man Lymphocytes # (Manual) APTT POC ABG pH ABG pH POC ABG pCO2 POC ABG pO2 ABG pO2 ABG HCO3 ABG Base Excess ABG Hemoglobin VBG pH Oxyhemoglobin Sodium 136 L Potassium Chloride 95.2 L Carbon Dioxide BUN 42 H Creatinine Glucose 63 L POC Glucose 303 H 227 H Lactic Acid Calcium AST 45 H ALT Alkaline Phosphatase 271 H CK-MB (CK-2) CK-MB (CK-2) Rel Index Total Protein 8.9 H Albumin 2.5 L TSH Urine WBC (Auto) Salicylates 04/29/17 04/29/17 04/29/17 06:40 14:11 21:35 WBC RBC Hgb Hct MCV MCH RDW Plt Count Lymph % (Auto) [place] % (Auto) Eos % (Auto) [place] # Seg Neutrophils % Seg Neuts % (Manual) Lymphocytes % (Manual) Seg Neutrophils # Seg Neutrophils # Man Lymphocytes # (Manual) APTT POC ABG pH ABG pH POC ABG pCO2 POC ABG pO2 ABG pO2 ABG HCO3 ABG Base Excess ABG Hemoglobin VBG pH Oxyhemoglobin Sodium Potassium Chloride Carbon Dioxide BUN Creatinine Glucose POC Glucose 254 H 244 H 184 H Lactic Acid Calcium AST ALT Alkaline Phosphatase CK-MB (CK-2) CK-MB (CK-2) Rel Index Total Protein Albumin TSH Urine WBC (Auto) Salicylates 04/30/17 04/30/17 04/30/17 05:17 14:03 22:08 WBC RBC Hgb Hct MCV MCH RDW Plt Count Lymph % (Auto) [place] % (Auto) Eos % (Auto) [place] # Seg Neutrophils % Seg Neuts % (Manual) Lymphocytes % (Manual) Seg Neutrophils # Seg Neutrophils # Man Lymphocytes # (Manual) APTT POC ABG pH ABG pH POC ABG pCO2 POC ABG pO2 ABG pO2 ABG HCO3 ABG Base Excess ABG Hemoglobin VBG pH Oxyhemoglobin Sodium Potassium Chloride Carbon Dioxide BUN Creatinine Glucose POC Glucose 173 H 182 H 247 H Lactic Acid Calcium AST ALT Alkaline Phosphatase CK-MB (CK-2) CK-MB (CK-2) Rel Index Total Protein Albumin TSH Urine WBC (Auto) Salicylates 05/01/17 05/01/17 05/01/17 05:04 15:37 18:50 WBC RBC Hgb Hct MCV MCH RDW Plt Count Lymph % (Auto) [place] % (Auto) Eos % (Auto) [place] # Seg Neutrophils % Seg Neuts % (Manual) Lymphocytes % (Manual) Seg Neutrophils # Seg Neutrophils # Man Lymphocytes # (Manual) APTT POC ABG pH ABG pH POC ABG pCO2 POC ABG pO2 ABG pO2 ABG HCO3 ABG Base Excess ABG Hemoglobin VBG pH Oxyhemoglobin Sodium Potassium Chloride Carbon Dioxide BUN Creatinine Glucose POC Glucose 335 H 68 L 144 H Lactic Acid Calcium AST ALT Alkaline Phosphatase CK-MB (CK-2) CK-MB (CK-2) Rel Index Total Protein Albumin TSH Urine WBC (Auto) Salicylates 05/01/17 05/02/17 05/02/17 22:13 04:59 14:06 WBC RBC Hgb Hct MCV MCH RDW Plt Count Lymph % (Auto) [place] % (Auto) Eos % (Auto) [place] # Seg Neutrophils % Seg Neuts % (Manual) Lymphocytes % (Manual) Seg Neutrophils # Seg Neutrophils # Man Lymphocytes # (Manual) APTT POC ABG pH ABG pH POC ABG pCO2 POC ABG pO2 ABG pO2 ABG HCO3 ABG Base Excess ABG Hemoglobin VBG pH Oxyhemoglobin Sodium Potassium Chloride Carbon Dioxide BUN Creatinine Glucose POC Glucose 192 H 225 H 165 H Lactic Acid Calcium AST ALT Alkaline Phosphatase CK-MB (CK-2) CK-MB (CK-2) Rel Index Total Protein Albumin TSH Urine WBC (Auto) Salicylates 05/02/17 05/03/17 05/03/17 21:20 05:16 16:56 WBC RBC Hgb Hct MCV MCH RDW Plt Count Lymph % (Auto) [place] % (Auto) Eos % (Auto) [place] # Seg Neutrophils % Seg Neuts % (Manual) Lymphocytes % (Manual) Seg Neutrophils # Seg Neutrophils # Man Lymphocytes # (Manual) APTT POC ABG pH ABG pH POC ABG pCO2 POC ABG pO2 ABG pO2 ABG HCO3 ABG Base Excess ABG Hemoglobin VBG pH Oxyhemoglobin Sodium Potassium Chloride Carbon Dioxide BUN Creatinine Glucose POC Glucose 181 H 323 H 125 H Lactic Acid Calcium AST ALT Alkaline Phosphatase CK-MB (CK-2) CK-MB (CK-2) Rel Index Total Protein Albumin TSH Urine WBC (Auto) Salicylates 05/03/17 05/04/17 05/04/17 21:46 05:01 14:24 WBC RBC Hgb Hct MCV MCH RDW Plt Count Lymph % (Auto) [place] % (Auto) Eos % (Auto) [place] # Seg Neutrophils % Seg Neuts % (Manual) Lymphocytes % (Manual) Seg Neutrophils # Seg Neutrophils # Man Lymphocytes # (Manual) APTT POC ABG pH ABG pH POC ABG pCO2 POC ABG pO2 ABG pO2 ABG HCO3 ABG Base Excess ABG Hemoglobin VBG pH Oxyhemoglobin Sodium Potassium Chloride Carbon Dioxide BUN Creatinine Glucose POC Glucose 210 H 360 H 219 H Lactic Acid Calcium AST ALT Alkaline Phosphatase CK-MB (CK-2) CK-MB (CK-2) Rel Index Total Protein Albumin TSH Urine WBC (Auto) Salicylates 05/04/17 05/05/17 05/05/17 21:39 01:58 05:13 WBC RBC Hgb Hct MCV MCH RDW Plt Count Lymph % (Auto) [place] % (Auto) Eos % (Auto) [place] # Seg Neutrophils % Seg Neuts % (Manual) Lymphocytes % (Manual) Seg Neutrophils # Seg Neutrophils # Man Lymphocytes # (Manual) APTT POC ABG pH ABG pH POC ABG pCO2 POC ABG pO2 ABG pO2 ABG HCO3 ABG Base Excess ABG Hemoglobin VBG pH Oxyhemoglobin Sodium Potassium Chloride Carbon Dioxide BUN Creatinine Glucose POC Glucose 126 H 175 H 267 H Lactic Acid Calcium AST ALT Alkaline Phosphatase CK-MB (CK-2) CK-MB (CK-2) Rel Index Total Protein Albumin TSH Urine WBC (Auto) Salicylates 05/05/17 05/05/17 05/05/17 12:19 14:11 21:18 WBC RBC Hgb Hct MCV MCH RDW Plt Count Lymph % (Auto) [place] % (Auto) Eos % (Auto) [place] # Seg Neutrophils % Seg Neuts % (Manual) Lymphocytes % (Manual) Seg Neutrophils # Seg Neutrophils # Man Lymphocytes # (Manual) APTT POC ABG pH ABG pH POC ABG pCO2 POC ABG pO2 ABG pO2 ABG HCO3 ABG Base Excess ABG Hemoglobin VBG pH Oxyhemoglobin Sodium Potassium Chloride Carbon Dioxide BUN Creatinine Glucose POC Glucose 221 H 205 H 156 H Lactic Acid Calcium AST ALT Alkaline Phosphatase CK-MB (CK-2) CK-MB (CK-2) Rel Index Total Protein Albumin TSH Urine WBC (Auto) Salicylates 05/06/17 05/06/17 05/06/17 06:02 15:26 21:43 WBC RBC Hgb Hct MCV MCH RDW Plt Count Lymph % (Auto) [place] % (Auto) Eos % (Auto) [place] # Seg Neutrophils % Seg Neuts % (Manual) Lymphocytes % (Manual) Seg Neutrophils # Seg Neutrophils # Man Lymphocytes # (Manual) APTT POC ABG pH ABG pH POC ABG pCO2 POC ABG pO2 ABG pO2 ABG HCO3 ABG Base Excess ABG Hemoglobin VBG pH Oxyhemoglobin Sodium Potassium Chloride Carbon Dioxide BUN Creatinine Glucose POC Glucose 263 H 143 H 145 H Lactic Acid Calcium AST ALT Alkaline Phosphatase CK-MB (CK-2) CK-MB (CK-2) Rel Index Total Protein Albumin TSH Urine WBC (Auto) Salicylates 05/07/17 05/07/17 05/07/17 05:52 21:46 21:49 WBC RBC Hgb Hct MCV MCH RDW Plt Count Lymph % (Auto) [place] % (Auto) Eos % (Auto) [place] # Seg Neutrophils % Seg Neuts % (Manual) Lymphocytes % (Manual) Seg Neutrophils # Seg Neutrophils # Man Lymphocytes # (Manual) APTT POC ABG pH ABG pH POC ABG pCO2 POC ABG pO2 ABG pO2 ABG HCO3 ABG Base Excess ABG Hemoglobin VBG pH Oxyhemoglobin Sodium Potassium Chloride Carbon Dioxide BUN Creatinine Glucose POC Glucose 242 H < 40 L < 40 L Lactic Acid Calcium AST ALT Alkaline Phosphatase CK-MB (CK-2) CK-MB (CK-2) Rel Index Total Protein Albumin TSH Urine WBC (Auto) Salicylates 05/07/17 05/08/17 05/09/17 22:41 06:14 00:02 WBC RBC Hgb Hct MCV MCH RDW Plt Count Lymph % (Auto) [place] % (Auto) Eos % (Auto) [place] # Seg Neutrophils % Seg Neuts % (Manual) Lymphocytes % (Manual) Seg Neutrophils # Seg Neutrophils # Man Lymphocytes # (Manual) APTT POC ABG pH ABG pH POC ABG pCO2 POC ABG pO2 ABG pO2 ABG HCO3 ABG Base Excess ABG Hemoglobin VBG pH Oxyhemoglobin Sodium Potassium Chloride Carbon Dioxide BUN Creatinine Glucose POC Glucose 183 H 329 H 130 H Lactic Acid Calcium AST ALT Alkaline Phosphatase CK-MB (CK-2) CK-MB (CK-2) Rel Index Total Protein Albumin TSH Urine WBC (Auto) Salicylates 05/09/17 05/09/17 05/09/17 06:08 14:06 21:44 WBC RBC Hgb Hct MCV MCH RDW Plt Count Lymph % (Auto) [place] % (Auto) Eos % (Auto) [place] # Seg Neutrophils % Seg Neuts % (Manual) Lymphocytes % (Manual) Seg Neutrophils # Seg Neutrophils # Man Lymphocytes # (Manual) APTT POC ABG pH ABG pH POC ABG pCO2 POC ABG pO2 ABG pO2 ABG HCO3 ABG Base Excess ABG Hemoglobin VBG pH Oxyhemoglobin Sodium Potassium Chloride Carbon Dioxide BUN Creatinine Glucose POC Glucose 241 H 251 H 198 H Lactic Acid Calcium AST ALT Alkaline Phosphatase CK-MB (CK-2) CK-MB (CK-2) Rel Index Total Protein Albumin TSH Urine WBC (Auto) Salicylates 05/10/17 05/10/17 05/10/17 05:18 14:44 21:53 WBC RBC Hgb Hct MCV MCH RDW Plt Count Lymph % (Auto) [place] % (Auto) Eos % (Auto) [place] # Seg Neutrophils % Seg Neuts % (Manual) Lymphocytes % (Manual) Seg Neutrophils # Seg Neutrophils # Man Lymphocytes # (Manual) APTT POC ABG pH ABG pH POC ABG pCO2 POC ABG pO2 ABG pO2 ABG HCO3 ABG Base Excess ABG Hemoglobin VBG pH Oxyhemoglobin Sodium Potassium Chloride Carbon Dioxide BUN Creatinine Glucose POC Glucose 166 H 224 H 171 H Lactic Acid Calcium AST ALT Alkaline Phosphatase CK-MB (CK-2) CK-MB (CK-2) Rel Index Total Protein Albumin TSH Urine WBC (Auto) Salicylates 05/11/17 05:45 WBC RBC Hgb Hct MCV MCH RDW Plt Count Lymph % (Auto) [place] % (Auto) Eos % (Auto) [place] # Seg Neutrophils % Seg Neuts % (Manual) Lymphocytes % (Manual) Seg Neutrophils # Seg Neutrophils # Man Lymphocytes # (Manual) APTT POC ABG pH ABG pH POC ABG pCO2 POC ABG pO2 ABG pO2 ABG HCO3 ABG Base Excess ABG Hemoglobin VBG pH Oxyhemoglobin Sodium Potassium Chloride Carbon Dioxide BUN Creatinine Glucose POC Glucose 199 H Lactic Acid Calcium AST ALT Alkaline Phosphatase CK-MB (CK-2) CK-MB (CK-2) Rel Index Total Protein Albumin TSH Urine WBC (Auto) Salicylates
[2017-05-11] MEDS: PEPCID PO SCH ×2 (10:21→21:46)
[2017-05-11] MEDS: HEPARIN SUB-Q SCH ×2 (10:21→21:46)
--- NOTE | 2017-05-11 17:10 | Progress Note ---
Assessment and Plan Assessment and plan: Persistently status. 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 Hospitalist Physical - Physical exam Narrative exam: Intubated and on mechanical ventilation. The patient appeared well nourished and normally developed. Vital signs as documented. Head exam is unremarkable. No scleral icterus . Neck is without jugular venous distension, thyromegaly, or carotid bruits. Lungs are clear to auscultation. Cardiac exam reveals regular rate and Rhythm. Abdominal exam reveals normal bowel sounds. Extremities are nonedematous and both femoral and pedal pulses are normal. PERIOPERATIVE NURSE: Comatose. Pupils are not dilated, but non reactive to light. - Constitutional Vitals: Temp Pulse Resp BP Pulse Ox 98.9 F 96 H 16 135/92 96 05/11/17 04:00 05/11/17 12:40 05/11/17 08:25 05/11/17 12:40 05/11/17 12:40 General appearance: Present: no acute distress Results - Labs CBC & Chem 7: 04/28/17 05:10 04/28/17 05:10 Labs: Laboratory Last Values WBC 9.3 K/mm3 (4.5-11.0) 04/28/17 05:10 RBC 3.48 M/mm3 (3.65-5.03) L 04/28/17 05:10 Hgb 8.8 gm/dl (11.8-15.2) L 04/28/17 05:10 Hct 26.7 % (35.5-45.6) L 04/28/17 05:10 MCV 77 fl (84-94) L 04/28/17 05:10 MCH 25 pg (28-32) L 04/28/17 05:10 MCHC 33 % (32-34) 04/28/17 05:10 RDW 17.0 % (13.2-15.2) H 04/28/17 05:10 Plt Count 515 K/mm3 (140-440) H 04/28/17 05:10 Lymph % (Auto) 18.4 % (13.4-35.0) 04/28/17 05:10 [place] % (Auto) 8.4 % (0.0-7.3) H 04/28/17 05:10 Eos % (Auto) 1.8 % (0.0-4.3) 04/28/17 05:10 Baso % (Auto) 0.8 % (0.0-1.8) 04/28/17 05:10 Lymph # 1.7 K/mm3 (1.2-5.4) 04/28/17 05:10 [place] # 0.8 K/mm3 (0.0-0.8) 04/28/17 05:10 Eos # 0.2 K/mm3 (0.0-0.4) 04/28/17 05:10 Baso # 0.1 K/mm3 (0.0-0.1) 04/28/17 05:10 Add Manual Diff Complete 01/10/17 04:30 Total Counted 100 01/10/17 04:30 Seg Neutrophils % 70.6 % (40.0-70.0) H 04/28/17 05:10 Seg Neuts % (Manual) 88.0 % (40.0-70.0) H 01/10/17 04:30 Band Neutrophils % 7.0 % 01/10/17 04:30 Lymphocytes % (Manual) 4.0 % (13.4-35.0) L 01/10/17 04:30 Reactive Lymphs % (Man) 0 % 01/10/17 04:30 Monocytes % (Manual) 1.0 % (0.0-7.3) 01/10/17 04:30 Eosinophils % (Manual) 0 % (0.0-4.3) 01/10/17 04:30 Basophils % (Manual) 0 % (0.0-1.8) 01/10/17 04:30 Metamyelocytes % 0 % 01/10/17 04:30 Myelocytes % 0 % 01/10/17 04:30 Promyelocytes % 0 % 01/10/17 04:30 Blast Cells % 0 % 01/10/17 04:30 Nucleated RBC % Not Reportable 01/10/17 04:30 Seg Neutrophils # 6.6 K/mm3 (1.8-7.7) 04/28/17 05:10 Seg Neutrophils # Man 21.2 K/mm3 (1.8-7.7) H 01/10/17 04:30 Band Neutrophils # 1.7 K/mm3 01/10/17 04:30 Lymphocytes # (Manual) 1.0 K/mm3 (1.2-5.4) L 01/10/17 04:30 Abs React Lymphs (Man) 0.0 K/mm3 01/10/17 04:30 Monocytes # (Manual) 0.2 K/mm3 (0.0-0.8) 01/10/17 04:30 Eosinophils # (Manual) 0.0 K/mm3 (0.0-0.4) 01/10/17 04:30 Basophils # (Manual) 0.0 K/mm3 (0.0-0.1) 01/10/17 04:30 Metamyelocytes # 0.0 K/mm3 01/10/17 04:30 Myelocytes # 0.0 K/mm3 01/10/17 04:30 Promyelocytes # 0.0 K/mm3 01/10/17 04:30 Blast Cells # 0.0 K/mm3 01/10/17 04:30 WBC Morphology Not Reportable 01/10/17 04:30 Hypersegmented Neuts Not Reportable 01/10/17 04:30 Hyposegmented Neuts Not Reportable 01/10/17 04:30 Hypogranular Neuts Not Reportable 01/10/17 04:30 Smudge Cells Not Reportable 01/10/17 04:30 Toxic Granulation Not Reportable 01/10/17 04:30 Toxic Vacuolation Not Reportable 01/10/17 04:30 Dohle Bodies Not Reportable 01/10/17 04:30 Pelger-Huet Anomaly Not Reportable 01/10/17 04:30 [place] Rods Not Reportable 01/10/17 04:30 Platelet Estimate Consistent w auto 01/10/17 04:30 Clumped Platelets Not Reportable 01/10/17 04:30 Plt Clumps, EDTA Not Reportable 01/10/17 04:30 Large Platelets Not Reportable 01/10/17 04:30 Giant Platelets Not Reportable 01/10/17 04:30 Platelet Satelliting Not Reportable 01/10/17 04:30 Plt Morphology Comment Not Reportable 01/10/17 04:30 RBC Morphology Not Reportable 01/10/17 04:30 Dimorphic RBCs Not Reportable 01/10/17 04:30 Polychromasia Not Reportable 01/10/17 04:30 Hypochromasia 1+ 01/10/17 04:30 Poikilocytosis Not Reportable 01/10/17 04:30 Anisocytosis Not Reportable 01/10/17 04:30 Microcytosis Not Reportable 01/10/17 04:30 Macrocytosis Not Reportable 01/10/17 04:30 Spherocytes Not Reportable 01/10/17 04:30 Pappenheimer Bodies Not Reportable 01/10/17 04:30 Sickle Cells Not Reportable 01/10/17 04:30 Target Cells Not Reportable 01/10/17 04:30 Tear Drop Cells Not Reportable 01/10/17 04:30 Ovalocytes Not Reportable 01/10/17 04:30 Helmet Cells Not Reportable 01/10/17 04:30 [place] Bodies Not Reportable 01/10/17 04:30 [place] Rings Not Reportable 01/10/17 04:30 [place] Cells Not Reportable 01/10/17 04:30 Bite Cells Not Reportable 01/10/17 04:30 Crenated Cell Not Reportable 01/10/17 04:30 Elliptocytes Not Reportable 01/10/17 04:30 Acanthocytes (Spur) Not Reportable 01/10/17 04:30 Rouleaux Not Reportable 01/10/17 04:30 Hemoglobin C Crystals Not Reportable 01/10/17 04:30 Schistocytes Not Reportable 01/10/17 04:30 Malaria parasites Not Reportable 01/10/17 04:30 [place] Bodies Not Reportable 01/10/17 04:30 Hem Pathologist Commnt No 01/10/17 04:30 PT 14.1 Sec. (12.2-14.9) 01/17/17 04:10 INR 1.04 (0.87-1.13) 01/17/17 04:10 APTT 36.6 Sec. (24.2-36.6) 01/17/17 04:10 POC ABG pH 7.442 (7.35-7.45) 01/31/17 18:55 ABG pH 7.420 pH Units (7.350-7.450) 01/17/17 04:35 POC ABG pCO2 32.8 (35-45) L 01/31/17 18:55 ABG pCO2 34.5 mm Hg 01/17/17 04:35 POC ABG pO2 82 (80-105) 01/31/17 18:55 ABG pO2 160.3 mm Hg (80.0-90.0) H 01/17/17 04:35 POC ABG HCO3 22.4 01/31/17 18:55 ABG HCO3 21.9 mmol/L (20.0-26.0) 01/17/17 04:35 POC ABG Total CO2 23 01/31/17 18:55 POC ABG O2 Sat 97 01/31/17 18:55 ABG O2 Saturation 99.0 % (95.0-99.0) 01/17/17 04:35 ABG O2 Content 11.1 (0.0-44) 01/17/17 04:35 POC ABG Base Excess -2 01/31/17 18:55 ABG Base Excess -2.3 mmol/L (-2.0-3.0) L 01/17/17 04:35 ABG Hemoglobin 7.9 gm/dl (14.0-18.0) L 01/17/17 04:35 ABG Carboxyhemoglobin 1.5 % (0.0-5.0) 01/17/17 04:35 ABG Methemoglobin 0.5 % (0.0-1.5) 01/17/17 04:35 VBG pH 7.284 (7.320-7.420) L 01/09/17 10:16 Oxyhemoglobin 97.1 % (95.0-99.0) 01/17/17 04:35 FiO2 25 % 01/31/17 18:55 Sodium 136 mmol/L (137-145) L 04/28/17 05:10 Potassium 4.5 mmol/L (3.6-5.0) 04/28/17 05:10 Chloride 95.2 mmol/L (98-107) L 04/28/17 05:10 Carbon Dioxide 27 mmol/L (22-30) 04/28/17 05:10 Anion Gap 18 mmol/L 04/28/17 05:10 BUN 42 mg/dL (9-20) H 04/28/17 05:10 Creatinine 0.9 mg/dL (0.8-1.5) 04/28/17 05:10 Estimated GFR > 60 ml/min 04/28/17 05:10 BUN/Creatinine Ratio 47 % 04/28/17 05:10 Glucose 63 mg/dL (75-100) L 04/28/17 05:10 POC Glucose 150 (70-105) H 05/11/17 13:44 Lactic Acid 0.80 mmol/L (0.7-2.0) 01/30/17 11:49 Calcium 9.1 mg/dL (8.4-10.2) 04/28/17 05:10 Phosphorus 3.10 mg/dL (2.5-4.5) 03/29/17 04:32 Magnesium 1.90 mg/dL (1.7-2.3) 03/29/17 04:32 Total Bilirubin 0.50 mg/dL (0.1-1.2) 04/28/17 05:10 AST 45 units/L (5-40) H 04/28/17 05:10 ALT 42 units/L (7-56) 04/28/17 05:10 Alkaline Phosphatase 271 units/L (35-129) H 04/28/17 05:10 Ammonia 35.0 umol/L (25-60) 01/09/17 10:16 Total Creatine Kinase 135 units/L (55-170) 01/09/17 10:16 CK-MB (CK-2) 7.1 ng/mL (0.0-4.0) H 01/09/17 10:16 CK-MB (CK-2) Rel Index 5.2 (0-4) H 01/09/17 10:16 Troponin T < 0.010 ng/mL (0.00-0.029) 01/09/17 10:16 NT-Pro-B Natriuret Pep 602.9 pg/mL (0-900) 01/09/17 10:16 Total Protein 8.9 g/dL (6.3-8.2) H 04/28/17 05:10 Albumin 2.5 g/dL (3.9-5) L 04/28/17 05:10 Albumin/Globulin Ratio 0.4 % 04/28/17 05:10 TSH 52.800 mlU/mL (0.270-4.200) H 01/09/17 10:16 Free T4 0.78 ng/dL (0.76-1.46) 01/09/17 10:16 Total Cortisol 54.8 mcg/dL () 01/09/17 16:19 Urine Color Yellow (Yellow) 01/28/17 17:52 Urine Turbidity Clear (Clear) 01/28/17 17:52 Urine pH 6.0 (5.0-7.0) 01/28/17 17:52 Ur Specific [place] 1.016 (1.003-1.030) 01/28/17 17:52 Urine Protein 100 mg/dl mg/dL (Negative) 01/28/17 17:52 Urine Glucose (UA) >=500 mg/dL (Negative) 01/28/17 17:52 Urine Ketones Neg mg/dL (Negative) 01/28/17 17:52 Urine Blood Sm (Negative) 01/28/17 17:52 Urine Nitrite Neg (Negative) 01/28/17 17:52 Urine Bilirubin Neg (Negative) 01/28/17 17:52 Urine Urobilinogen < 2.0 mg/dL (<2.0) 01/28/17 17:52 Ur Leukocyte Esterase Lg (Negative) 01/28/17 17:52 Urine WBC (Auto) > 182.0 /HPF (0.0-6.0) H 01/28/17 17:52 Urine RBC (Auto) 113.0 /HPF (0.0-6.0) 01/28/17 17:52 Urine Bacteria (Auto) 2+ /HPF (Negative) 01/28/17 17:52 Urine WBC Clumps 3+ /HPF 01/28/17 17:52 Urine Mucus Few /HPF 01/14/17 14:07 Urine Yeast ([place]) 3+ /HPF 01/14/17 14:07 Salicylates < 0.3 mg/dL (2.8-20.0) L 01/09/17 10:16 Urine Opiates Screen Presumptive negative 01/09/17 10:23 Urine Methadone Screen Presumptive negative 01/09/17 10:23 Acetaminophen < 15.0 ug/mL (10.0-30.0) 01/09/17 10:16 Ur Barbiturates Screen Presumptive negative 01/09/17 10:23 Ur Phencyclidine Scrn Presumptive negative 01/09/17 10:23 Ur Amphetamines Screen Presumptive negative 01/09/17 10:23 U Benzodiazepines Scrn Presumptive negative 01/09/17 10:23 Urine Cocaine Screen Presumptive negative 01/09/17 10:23 U Marijuana (THC) Screen Presumptive negative 01/09/17 10:23 Drugs of Abuse Note Disclamer 01/09/17 10:23 Plasma/Serum Alcohol < 0.01 gm% (0-0.07) 01/09/17 10:16
[2017-05-12] MEDS ORDERED: NORCO 7.5/325 PO PRN (10:28)
[2017-05-12] MEDS: PEPCID PO SCH ×2 (12:02→21:34)
[2017-05-12] MEDS: HEPARIN SUB-Q SCH ×2 (12:02→21:34)
[2017-05-12] MEDS: LEVEMIR (NF) SUB-Q SCH (12:03)
[2017-05-12] MEDS: HumuLIN R SUB-Q SCH ×3 (12:08→22:00)
[2017-05-12] MEDS: SYNTHROID PO SCH (12:08)
--- NOTE | 2017-05-12 17:27 | Progress Note ---
Assessment and Plan Assessment and plan: Persistently status. 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 Hospitalist Physical - Physical exam Narrative exam: Intubated and on mechanical ventilation. The patient appeared well nourished and normally developed. Vital signs as documented. Head exam is unremarkable. No scleral icterus . Neck is without jugular venous distension, thyromegaly, or carotid bruits. Lungs are clear to auscultation. Cardiac exam reveals regular rate and Rhythm. Abdominal exam reveals normal bowel sounds. Extremities are nonedematous and both femoral and pedal pulses are normal. BRIGHT CUTTER: Comatose. Pupils are not dilated, but non reactive to light. - Constitutional Vitals: Temp Pulse Resp BP Pulse Ox 99.0 F 87 16 110/70 98 05/12/17 16:00 05/12/17 12:15 05/11/17 20:00 05/12/17 12:15 05/12/17 12:15 General appearance: Present: no acute distress Results - Labs CBC & Chem 7: 04/28/17 05:10 04/28/17 05:10 Labs: Laboratory Last Values WBC 9.3 K/mm3 (4.5-11.0) 04/28/17 05:10 RBC 3.48 M/mm3 (3.65-5.03) L 04/28/17 05:10 Hgb 8.8 gm/dl (11.8-15.2) L 04/28/17 05:10 Hct 26.7 % (35.5-45.6) L 04/28/17 05:10 MCV 77 fl (84-94) L 04/28/17 05:10 MCH 25 pg (28-32) L 04/28/17 05:10 MCHC 33 % (32-34) 04/28/17 05:10 RDW 17.0 % (13.2-15.2) H 04/28/17 05:10 Plt Count 515 K/mm3 (140-440) H 04/28/17 05:10 Lymph % (Auto) 18.4 % (13.4-35.0) 04/28/17 05:10 [place] % (Auto) 8.4 % (0.0-7.3) H 04/28/17 05:10 Eos % (Auto) 1.8 % (0.0-4.3) 04/28/17 05:10 Baso % (Auto) 0.8 % (0.0-1.8) 04/28/17 05:10 Lymph # 1.7 K/mm3 (1.2-5.4) 04/28/17 05:10 [place] # 0.8 K/mm3 (0.0-0.8) 04/28/17 05:10 Eos # 0.2 K/mm3 (0.0-0.4) 04/28/17 05:10 Baso # 0.1 K/mm3 (0.0-0.1) 04/28/17 05:10 Add Manual Diff Complete 01/10/17 04:30 Total Counted 100 01/10/17 04:30 Seg Neutrophils % 70.6 % (40.0-70.0) H 04/28/17 05:10 Seg Neuts % (Manual) 88.0 % (40.0-70.0) H 01/10/17 04:30 Band Neutrophils % 7.0 % 01/10/17 04:30 Lymphocytes % (Manual) 4.0 % (13.4-35.0) L 01/10/17 04:30 Reactive Lymphs % (Man) 0 % 01/10/17 04:30 Monocytes % (Manual) 1.0 % (0.0-7.3) 01/10/17 04:30 Eosinophils % (Manual) 0 % (0.0-4.3) 01/10/17 04:30 Basophils % (Manual) 0 % (0.0-1.8) 01/10/17 04:30 Metamyelocytes % 0 % 01/10/17 04:30 Myelocytes % 0 % 01/10/17 04:30 Promyelocytes % 0 % 01/10/17 04:30 Blast Cells % 0 % 01/10/17 04:30 Nucleated RBC % Not Reportable 01/10/17 04:30 Seg Neutrophils # 6.6 K/mm3 (1.8-7.7) 04/28/17 05:10 Seg Neutrophils # Man 21.2 K/mm3 (1.8-7.7) H 01/10/17 04:30 Band Neutrophils # 1.7 K/mm3 01/10/17 04:30 Lymphocytes # (Manual) 1.0 K/mm3 (1.2-5.4) L 01/10/17 04:30 Abs React Lymphs (Man) 0.0 K/mm3 01/10/17 04:30 Monocytes # (Manual) 0.2 K/mm3 (0.0-0.8) 01/10/17 04:30 Eosinophils # (Manual) 0.0 K/mm3 (0.0-0.4) 01/10/17 04:30 Basophils # (Manual) 0.0 K/mm3 (0.0-0.1) 01/10/17 04:30 Metamyelocytes # 0.0 K/mm3 01/10/17 04:30 Myelocytes # 0.0 K/mm3 01/10/17 04:30 Promyelocytes # 0.0 K/mm3 01/10/17 04:30 Blast Cells # 0.0 K/mm3 01/10/17 04:30 WBC Morphology Not Reportable 01/10/17 04:30 Hypersegmented Neuts Not Reportable 01/10/17 04:30 Hyposegmented Neuts Not Reportable 01/10/17 04:30 Hypogranular Neuts Not Reportable 01/10/17 04:30 Smudge Cells Not Reportable 01/10/17 04:30 Toxic Granulation Not Reportable 01/10/17 04:30 Toxic Vacuolation Not Reportable 01/10/17 04:30 Dohle Bodies Not Reportable 01/10/17 04:30 Pelger-Huet Anomaly Not Reportable 01/10/17 04:30 Shelby Rods Not Reportable 01/10/17 04:30 Platelet Estimate Consistent w auto 01/10/17 04:30 Clumped Platelets Not Reportable 01/10/17 04:30 Plt Clumps, EDTA Not Reportable 01/10/17 04:30 Large Platelets Not Reportable 01/10/17 04:30 Giant Platelets Not Reportable 01/10/17 04:30 Platelet Satelliting Not Reportable 01/10/17 04:30 Plt Morphology Comment Not Reportable 01/10/17 04:30 RBC Morphology Not Reportable 01/10/17 04:30 Dimorphic RBCs Not Reportable 01/10/17 04:30 Polychromasia Not Reportable 01/10/17 04:30 Hypochromasia 1+ 01/10/17 04:30 Poikilocytosis Not Reportable 01/10/17 04:30 Anisocytosis Not Reportable 01/10/17 04:30 Microcytosis Not Reportable 01/10/17 04:30 Macrocytosis Not Reportable 01/10/17 04:30 Spherocytes Not Reportable 01/10/17 04:30 Pappenheimer Bodies Not Reportable 01/10/17 04:30 Sickle Cells Not Reportable 01/10/17 04:30 Target Cells Not Reportable 01/10/17 04:30 Tear Drop Cells Not Reportable 01/10/17 04:30 Ovalocytes Not Reportable 01/10/17 04:30 Helmet Cells Not Reportable 01/10/17 04:30 [place] Bodies Not Reportable 01/10/17 04:30 [place] Rings Not Reportable 01/10/17 04:30 [place] Cells Not Reportable 01/10/17 04:30 Bite Cells Not Reportable 01/10/17 04:30 Crenated Cell Not Reportable 01/10/17 04:30 Elliptocytes Not Reportable 01/10/17 04:30 Acanthocytes (Spur) Not Reportable 01/10/17 04:30 Rouleaux Not Reportable 01/10/17 04:30 Hemoglobin C Crystals Not Reportable 01/10/17 04:30 Schistocytes Not Reportable 01/10/17 04:30 Malaria parasites Not Reportable 01/10/17 04:30 [place] Bodies Not Reportable 01/10/17 04:30 Hem Pathologist Commnt No 01/10/17 04:30 PT 14.1 Sec. (12.2-14.9) 01/17/17 04:10 INR 1.04 (0.87-1.13) 01/17/17 04:10 APTT 36.6 Sec. (24.2-36.6) 01/17/17 04:10 POC ABG pH 7.442 (7.35-7.45) 01/31/17 18:55 ABG pH 7.420 pH Units (7.350-7.450) 01/17/17 04:35 POC ABG pCO2 32.8 (35-45) L 01/31/17 18:55 ABG pCO2 34.5 mm Hg 01/17/17 04:35 POC ABG pO2 82 (80-105) 01/31/17 18:55 ABG pO2 160.3 mm Hg (80.0-90.0) H 01/17/17 04:35 POC ABG HCO3 22.4 01/31/17 18:55 ABG HCO3 21.9 mmol/L (20.0-26.0) 01/17/17 04:35 POC ABG Total CO2 23 01/31/17 18:55 POC ABG O2 Sat 97 01/31/17 18:55 ABG O2 Saturation 99.0 % (95.0-99.0) 01/17/17 04:35 ABG O2 Content 11.1 (0.0-44) 01/17/17 04:35 POC ABG Base Excess -2 01/31/17 18:55 ABG Base Excess -2.3 mmol/L (-2.0-3.0) L 01/17/17 04:35 ABG Hemoglobin 7.9 gm/dl (14.0-18.0) L 01/17/17 04:35 ABG Carboxyhemoglobin 1.5 % (0.0-5.0) 01/17/17 04:35 ABG Methemoglobin 0.5 % (0.0-1.5) 01/17/17 04:35 VBG pH 7.284 (7.320-7.420) L 01/09/17 10:16 Oxyhemoglobin 97.1 % (95.0-99.0) 01/17/17 04:35 FiO2 25 % 01/31/17 18:55 Sodium 136 mmol/L (137-145) L 04/28/17 05:10 Potassium 4.5 mmol/L (3.6-5.0) 04/28/17 05:10 Chloride 95.2 mmol/L (98-107) L 04/28/17 05:10 Carbon Dioxide 27 mmol/L (22-30) 04/28/17 05:10 Anion Gap 18 mmol/L 04/28/17 05:10 BUN 42 mg/dL (9-20) H 04/28/17 05:10 Creatinine 0.9 mg/dL (0.8-1.5) 04/28/17 05:10 Estimated GFR > 60 ml/min 04/28/17 05:10 BUN/Creatinine Ratio 47 % 04/28/17 05:10 Glucose 63 mg/dL (75-100) L 04/28/17 05:10 POC Glucose 243 (70-105) H 05/12/17 13:59 Lactic Acid 0.80 mmol/L (0.7-2.0) 01/30/17 11:49 Calcium 9.1 mg/dL (8.4-10.2) 04/28/17 05:10 Phosphorus 3.10 mg/dL (2.5-4.5) 03/29/17 04:32 Magnesium 1.90 mg/dL (1.7-2.3) 03/29/17 04:32 Total Bilirubin 0.50 mg/dL (0.1-1.2) 04/28/17 05:10 AST 45 units/L (5-40) H 04/28/17 05:10 ALT 42 units/L (7-56) 04/28/17 05:10 Alkaline Phosphatase 271 units/L (35-129) H 04/28/17 05:10 Ammonia 35.0 umol/L (25-60) 01/09/17 10:16 Total Creatine Kinase 135 units/L (55-170) 01/09/17 10:16 CK-MB (CK-2) 7.1 ng/mL (0.0-4.0) H 01/09/17 10:16 CK-MB (CK-2) Rel Index 5.2 (0-4) H 01/09/17 10:16 Troponin T < 0.010 ng/mL (0.00-0.029) 01/09/17 10:16 NT-Pro-B Natriuret Pep 602.9 pg/mL (0-900) 01/09/17 10:16 Total Protein 8.9 g/dL (6.3-8.2) H 04/28/17 05:10 Albumin 2.5 g/dL (3.9-5) L 04/28/17 05:10 Albumin/Globulin Ratio 0.4 % 04/28/17 05:10 TSH 52.800 mlU/mL (0.270-4.200) H 01/09/17 10:16 Free T4 0.78 ng/dL (0.76-1.46) 01/09/17 10:16 Total Cortisol 54.8 mcg/dL () 01/09/17 16:19 Urine Color Yellow (Yellow) 01/28/17 17:52 Urine Turbidity Clear (Clear) 01/28/17 17:52 Urine pH 6.0 (5.0-7.0) 01/28/17 17:52 Ur Specific [place] 1.016 (1.003-1.030) 01/28/17 17:52 Urine Protein 100 mg/dl mg/dL (Negative) 01/28/17 17:52 Urine Glucose (UA) >=500 mg/dL (Negative) 01/28/17 17:52 Urine Ketones Neg mg/dL (Negative) 01/28/17 17:52 Urine Blood Sm (Negative) 01/28/17 17:52 Urine Nitrite Neg (Negative) 01/28/17 17:52 Urine Bilirubin Neg (Negative) 01/28/17 17:52 Urine Urobilinogen < 2.0 mg/dL (<2.0) 01/28/17 17:52 Ur Leukocyte Esterase Lg (Negative) 01/28/17 17:52 Urine WBC (Auto) > 182.0 /HPF (0.0-6.0) H 01/28/17 17:52 Urine RBC (Auto) 113.0 /HPF (0.0-6.0) 01/28/17 17:52 Urine Bacteria (Auto) 2+ /HPF (Negative) 01/28/17 17:52 Urine WBC Clumps 3+ /HPF 01/28/17 17:52 Urine Mucus Few /HPF 01/14/17 14:07 Urine Yeast (Budding) 3+ /HPF 01/14/17 14:07 Salicylates < 0.3 mg/dL (2.8-20.0) L 01/09/17 10:16 Urine Opiates Screen Presumptive negative 01/09/17 10:23 Urine Methadone Screen Presumptive negative 01/09/17 10:23 Acetaminophen < 15.0 ug/mL (10.0-30.0) 01/09/17 10:16 Ur Barbiturates Screen Presumptive negative 01/09/17 10:23 Ur Phencyclidine Scrn Presumptive negative 01/09/17 10:23 Ur Amphetamines Screen Presumptive negative 01/09/17 10:23 U Benzodiazepines Scrn Presumptive negative 01/09/17 10:23 Urine Cocaine Screen Presumptive negative 01/09/17 10:23 U Marijuana (THC) Screen Presumptive negative 01/09/17 10:23 Drugs of Abuse Note Disclamer 01/09/17 10:23 Plasma/Serum Alcohol < 0.01 gm% (0-0.07) 01/09/17 10:16
[2017-05-13] MEDS: HumuLIN R SUB-Q SCH ×3 (05:59→22:34)
[2017-05-13] MEDS: SYNTHROID PO SCH (05:59)
[2017-05-13] MEDS: LEVEMIR (NF) SUB-Q SCH (08:53)
[2017-05-13] MEDS: PEPCID PO SCH ×2 (08:59→22:33)
[2017-05-13] MEDS: HEPARIN SUB-Q SCH ×2 (08:59→22:33)
--- NOTE | 2017-05-13 17:37 | Progress Note ---
Assessment and Plan Assessment and plan: Persistently status. 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 Hospitalist Physical - Physical exam Narrative exam: Intubated and on mechanical ventilation. The patient appeared well nourished and normally developed. Vital signs as documented. Head exam is unremarkable. No scleral icterus . Neck is without jugular venous distension, thyromegaly, or carotid bruits. Lungs are clear to auscultation. Cardiac exam reveals regular rate and Rhythm. Abdominal exam reveals normal bowel sounds. Extremities are nonedematous and both femoral and pedal pulses are normal. HOSTESS HOST: Comatose. Pupils are not dilated, but non reactive to light. - Constitutional Vitals: Temp Pulse Resp BP Pulse Ox 98.2 F 82 26 H 96/60 98 05/13/17 16:00 05/13/17 16:39 05/13/17 16:39 05/13/17 16:39 05/13/17 16:39 General appearance: Present: no acute distress Results - Labs CBC & Chem 7: 04/28/17 05:10 04/28/17 05:10 Labs: Laboratory Last Values WBC 9.3 K/mm3 (4.5-11.0) 04/28/17 05:10 RBC 3.48 M/mm3 (3.65-5.03) L 04/28/17 05:10 Hgb 8.8 gm/dl (11.8-15.2) L 04/28/17 05:10 Hct 26.7 % (35.5-45.6) L 04/28/17 05:10 MCV 77 fl (84-94) L 04/28/17 05:10 MCH 25 pg (28-32) L 04/28/17 05:10 MCHC 33 % (32-34) 04/28/17 05:10 RDW 17.0 % (13.2-15.2) H 04/28/17 05:10 Plt Count 515 K/mm3 (140-440) H 04/28/17 05:10 Lymph % (Auto) 18.4 % (13.4-35.0) 04/28/17 05:10 [place] % (Auto) 8.4 % (0.0-7.3) H 04/28/17 05:10 Eos % (Auto) 1.8 % (0.0-4.3) 04/28/17 05:10 Baso % (Auto) 0.8 % (0.0-1.8) 04/28/17 05:10 Lymph # 1.7 K/mm3 (1.2-5.4) 04/28/17 05:10 [place] # 0.8 K/mm3 (0.0-0.8) 04/28/17 05:10 Eos # 0.2 K/mm3 (0.0-0.4) 04/28/17 05:10 Baso # 0.1 K/mm3 (0.0-0.1) 04/28/17 05:10 Add Manual Diff Complete 01/10/17 04:30 Total Counted 100 01/10/17 04:30 Seg Neutrophils % 70.6 % (40.0-70.0) H 04/28/17 05:10 Seg Neuts % (Manual) 88.0 % (40.0-70.0) H 01/10/17 04:30 Band Neutrophils % 7.0 % 01/10/17 04:30 Lymphocytes % (Manual) 4.0 % (13.4-35.0) L 01/10/17 04:30 Reactive Lymphs % (Man) 0 % 01/10/17 04:30 Monocytes % (Manual) 1.0 % (0.0-7.3) 01/10/17 04:30 Eosinophils % (Manual) 0 % (0.0-4.3) 01/10/17 04:30 Basophils % (Manual) 0 % (0.0-1.8) 01/10/17 04:30 Metamyelocytes % 0 % 01/10/17 04:30 Myelocytes % 0 % 01/10/17 04:30 Promyelocytes % 0 % 01/10/17 04:30 Blast Cells % 0 % 01/10/17 04:30 Nucleated RBC % Not Reportable 01/10/17 04:30 Seg Neutrophils # 6.6 K/mm3 (1.8-7.7) 04/28/17 05:10 Seg Neutrophils # Man 21.2 K/mm3 (1.8-7.7) H 01/10/17 04:30 Band Neutrophils # 1.7 K/mm3 01/10/17 04:30 Lymphocytes # (Manual) 1.0 K/mm3 (1.2-5.4) L 01/10/17 04:30 Abs React Lymphs (Man) 0.0 K/mm3 01/10/17 04:30 Monocytes # (Manual) 0.2 K/mm3 (0.0-0.8) 01/10/17 04:30 Eosinophils # (Manual) 0.0 K/mm3 (0.0-0.4) 01/10/17 04:30 Basophils # (Manual) 0.0 K/mm3 (0.0-0.1) 01/10/17 04:30 Metamyelocytes # 0.0 K/mm3 01/10/17 04:30 Myelocytes # 0.0 K/mm3 01/10/17 04:30 Promyelocytes # 0.0 K/mm3 01/10/17 04:30 Blast Cells # 0.0 K/mm3 01/10/17 04:30 WBC Morphology Not Reportable 01/10/17 04:30 Hypersegmented Neuts Not Reportable 01/10/17 04:30 Hyposegmented Neuts Not Reportable 01/10/17 04:30 Hypogranular Neuts Not Reportable 01/10/17 04:30 Smudge Cells Not Reportable 01/10/17 04:30 Toxic Granulation Not Reportable 01/10/17 04:30 Toxic Vacuolation Not Reportable 01/10/17 04:30 Dohle Bodies Not Reportable 01/10/17 04:30 Pelger-Huet Anomaly Not Reportable 01/10/17 04:30 [place] Rods Not Reportable 01/10/17 04:30 Platelet Estimate Consistent w auto 01/10/17 04:30 Clumped Platelets Not Reportable 01/10/17 04:30 Plt Clumps, EDTA Not Reportable 01/10/17 04:30 Large Platelets Not Reportable 01/10/17 04:30 Giant Platelets Not Reportable 01/10/17 04:30 Platelet Satelliting Not Reportable 01/10/17 04:30 Plt Morphology Comment Not Reportable 01/10/17 04:30 RBC Morphology Not Reportable 01/10/17 04:30 Dimorphic RBCs Not Reportable 01/10/17 04:30 Polychromasia Not Reportable 01/10/17 04:30 Hypochromasia 1+ 01/10/17 04:30 Poikilocytosis Not Reportable 01/10/17 04:30 Anisocytosis Not Reportable 01/10/17 04:30 Microcytosis Not Reportable 01/10/17 04:30 Macrocytosis Not Reportable 01/10/17 04:30 Spherocytes Not Reportable 01/10/17 04:30 Pappenheimer Bodies Not Reportable 01/10/17 04:30 Sickle Cells Not Reportable 01/10/17 04:30 Target Cells Not Reportable 01/10/17 04:30 Tear Drop Cells Not Reportable 01/10/17 04:30 Ovalocytes Not Reportable 01/10/17 04:30 Helmet Cells Not Reportable 01/10/17 04:30 [place] Bodies Not Reportable 01/10/17 04:30 [place] Rings Not Reportable 01/10/17 04:30 [place] Cells Not Reportable 01/10/17 04:30 Bite Cells Not Reportable 01/10/17 04:30 Crenated Cell Not Reportable 01/10/17 04:30 Elliptocytes Not Reportable 01/10/17 04:30 Acanthocytes (Spur) Not Reportable 01/10/17 04:30 Rouleaux Not Reportable 01/10/17 04:30 Hemoglobin C Crystals Not Reportable 01/10/17 04:30 Schistocytes Not Reportable 01/10/17 04:30 Malaria parasites Not Reportable 01/10/17 04:30 [place] Bodies Not Reportable 01/10/17 04:30 Hem Pathologist Commnt No 01/10/17 04:30 PT 14.1 Sec. (12.2-14.9) 01/17/17 04:10 INR 1.04 (0.87-1.13) 01/17/17 04:10 APTT 36.6 Sec. (24.2-36.6) 01/17/17 04:10 POC ABG pH 7.442 (7.35-7.45) 01/31/17 18:55 ABG pH 7.420 pH Units (7.350-7.450) 01/17/17 04:35 POC ABG pCO2 32.8 (35-45) L 01/31/17 18:55 ABG pCO2 34.5 mm Hg 01/17/17 04:35 POC ABG pO2 82 (80-105) 01/31/17 18:55 ABG pO2 160.3 mm Hg (80.0-90.0) H 01/17/17 04:35 POC ABG HCO3 22.4 01/31/17 18:55 ABG HCO3 21.9 mmol/L (20.0-26.0) 01/17/17 04:35 POC ABG Total CO2 23 01/31/17 18:55 POC ABG O2 Sat 97 01/31/17 18:55 ABG O2 Saturation 99.0 % (95.0-99.0) 01/17/17 04:35 ABG O2 Content 11.1 (0.0-44) 01/17/17 04:35 POC ABG Base Excess -2 01/31/17 18:55 ABG Base Excess -2.3 mmol/L (-2.0-3.0) L 01/17/17 04:35 ABG Hemoglobin 7.9 gm/dl (14.0-18.0) L 01/17/17 04:35 ABG Carboxyhemoglobin 1.5 % (0.0-5.0) 01/17/17 04:35 ABG Methemoglobin 0.5 % (0.0-1.5) 01/17/17 04:35 VBG pH 7.284 (7.320-7.420) L 01/09/17 10:16 Oxyhemoglobin 97.1 % (95.0-99.0) 01/17/17 04:35 FiO2 25 % 01/31/17 18:55 Sodium 136 mmol/L (137-145) L 04/28/17 05:10 Potassium 4.5 mmol/L (3.6-5.0) 04/28/17 05:10 Chloride 95.2 mmol/L (98-107) L 04/28/17 05:10 Carbon Dioxide 27 mmol/L (22-30) 04/28/17 05:10 Anion Gap 18 mmol/L 04/28/17 05:10 BUN 42 mg/dL (9-20) H 04/28/17 05:10 Creatinine 0.9 mg/dL (0.8-1.5) 04/28/17 05:10 Estimated GFR > 60 ml/min 04/28/17 05:10 BUN/Creatinine Ratio 47 % 04/28/17 05:10 Glucose 63 mg/dL (75-100) L 04/28/17 05:10 POC Glucose 213 (70-105) H 05/13/17 05:28 Lactic Acid 0.80 mmol/L (0.7-2.0) 01/30/17 11:49 Calcium 9.1 mg/dL (8.4-10.2) 04/28/17 05:10 Phosphorus 3.10 mg/dL (2.5-4.5) 03/29/17 04:32 Magnesium 1.90 mg/dL (1.7-2.3) 03/29/17 04:32 Total Bilirubin 0.50 mg/dL (0.1-1.2) 04/28/17 05:10 AST 45 units/L (5-40) H 04/28/17 05:10 ALT 42 units/L (7-56) 04/28/17 05:10 Alkaline Phosphatase 271 units/L (35-129) H 04/28/17 05:10 Ammonia 35.0 umol/L (25-60) 01/09/17 10:16 Total Creatine Kinase 135 units/L (55-170) 01/09/17 10:16 CK-MB (CK-2) 7.1 ng/mL (0.0-4.0) H 01/09/17 10:16 CK-MB (CK-2) Rel Index 5.2 (0-4) H 01/09/17 10:16 Troponin T < 0.010 ng/mL (0.00-0.029) 01/09/17 10:16 NT-Pro-B Natriuret Pep 602.9 pg/mL (0-900) 01/09/17 10:16 Total Protein 8.9 g/dL (6.3-8.2) H 04/28/17 05:10 Albumin 2.5 g/dL (3.9-5) L 04/28/17 05:10 Albumin/Globulin Ratio 0.4 % 04/28/17 05:10 TSH 52.800 mlU/mL (0.270-4.200) H 01/09/17 10:16 Free T4 0.78 ng/dL (0.76-1.46) 01/09/17 10:16 Total Cortisol 54.8 mcg/dL () 01/09/17 16:19 Urine Color Yellow (Yellow) 01/28/17 17:52 Urine Turbidity Clear (Clear) 01/28/17 17:52 Urine pH 6.0 (5.0-7.0) 01/28/17 17:52 Ur Specific [place] 1.016 (1.003-1.030) 01/28/17 17:52 Urine Protein 100 mg/dl mg/dL (Negative) 01/28/17 17:52 Urine Glucose (UA) >=500 mg/dL (Negative) 01/28/17 17:52 Urine Ketones Neg mg/dL (Negative) 01/28/17 17:52 Urine Blood Sm (Negative) 01/28/17 17:52 Urine Nitrite Neg (Negative) 01/28/17 17:52 Urine Bilirubin Neg (Negative) 01/28/17 17:52 Urine Urobilinogen < 2.0 mg/dL (<2.0) 01/28/17 17:52 Ur Leukocyte Esterase Lg (Negative) 01/28/17 17:52 Urine WBC (Auto) > 182.0 /HPF (0.0-6.0) H 01/28/17 17:52 Urine RBC (Auto) 113.0 /HPF (0.0-6.0) 01/28/17 17:52 Urine Bacteria (Auto) 2+ /HPF (Negative) 01/28/17 17:52 Urine WBC Clumps 3+ /HPF 01/28/17 17:52 Urine Mucus Few /HPF 01/14/17 14:07 Urine Yeast (Budding) 3+ /HPF 01/14/17 14:07 Salicylates < 0.3 mg/dL (2.8-20.0) L 01/09/17 10:16 Urine Opiates Screen Presumptive negative 01/09/17 10:23 Urine Methadone Screen Presumptive negative 01/09/17 10:23 Acetaminophen < 15.0 ug/mL (10.0-30.0) 01/09/17 10:16 Ur Barbiturates Screen Presumptive negative 01/09/17 10:23 Ur Phencyclidine Scrn Presumptive negative 01/09/17 10:23 Ur Amphetamines Screen Presumptive negative 01/09/17 10:23 U Benzodiazepines Scrn Presumptive negative 01/09/17 10:23 Urine Cocaine Screen Presumptive negative 01/09/17 10:23 U Marijuana (THC) Screen Presumptive negative 01/09/17 10:23 Drugs of Abuse Note Disclamer 01/09/17 10:23 Plasma/Serum Alcohol < 0.01 gm% (0-0.07) 01/09/17 10:16
[2017-05-14] MEDS: HumuLIN R SUB-Q SCH ×3 (06:05→22:11)
[2017-05-14] MEDS: SYNTHROID PO SCH (06:05)
[2017-05-14] MEDS: HEPARIN SUB-Q SCH ×2 (09:28→22:02)
[2017-05-14] MEDS: PEPCID PO SCH ×2 (09:28→21:01)
[2017-05-14] MEDS: LEVEMIR (NF) SUB-Q SCH (09:28)
--- NOTE | 2017-05-14 13:16 | Progress Note ---
Assessment and Plan 51 y/o male found down, concern for sepsis and now encephalopathic requiring mechanical ventilation. 1. continue supportive care 2. 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 I am aware that he is an AND but trach will not fix this problem and is not in my professional opinion the right thing to do for this patient. Most likely he will never be weaned from the vent and will remain in a persistent vegatative state. 3. Overall prognosis continues to be poor. 4. Will not check labs 5. Vitals should be qshift 6. This patient's possibility of awakening from this persistent vegatative is unlikely. The current status is that there has been paper work filed to obtain guardianship so that end of life decisions can be made. Supportive care is reasonable but checking daily labs and doing other invasive things to this patient I do not feel is morally and ethically appropriate. 7. Currently patient does not have IV access and is not requiring any medical therapy. Will not place another one at this time. 8. Per CM, went to court 05/03/17 for Guardianship. One has been appointed, awaiting to meet them. 9. Continue [place], PO. for pain management, PRN. Subjective Date of service: 05/14/17 Principal diagnosis: Acute respiratory failure,encephalopathy Interval history: No acute events. No changes in mental state. Still no family found or present. Have not met court appointed guardian. Objective Vital Signs - 12hr 05/14/17 05/14/17 05/14/17 02:01 03:00 03:25 Temperature 98.8 F Pulse Rate 75 77 Pulse Rate [ From Monitor] Respiratory 14 14 Rate Blood Pressure 99/60 99/60 O2 Sat by Pulse 100 100 Oximetry 05/14/17 05/14/17 05/14/17 04:00 05:01 06:01 Temperature Pulse Rate 77 76 80 Pulse Rate [ From Monitor] Respiratory 16 12 13 Rate Blood Pressure 103/65 103/65 103/65 O2 Sat by Pulse 99 97 100 Oximetry 05/14/17 05/14/17 05/14/17 07:01 07:55 08:00 Temperature 97.8 F Pulse Rate 73 73 Pulse Rate [ 73 From Monitor] Respiratory 16 17 Rate Blood Pressure 103/65 114/68 O2 Sat by Pulse 98 100 Oximetry 05/14/17 05/14/1705/14/18 09:18 10:00 12:00 Temperature 97.8 F Pulse Rate 75 80 Pulse Rate [ From Monitor] Respiratory 25 H Rate Blood Pressure 114/68 O2 Sat by Pulse 96 Oximetry Constitutional: no acute distress, alert, other (on vent) Eyes: non-icteric ENT: oropharynx moist, other (ETT in position) Neck: supple Effort: normal Ascultation: Bilateral: clear, diminished breath sounds Cardiovascular: regular rate and rhythm (no mrg) Gastrointestinal: normoactive bowel sounds, soft, non-tender, non-distended Integumentary: normal Extremities: no cyanosis, no edema, pink and warm Neurologic: pupils equal and round, other (not following commands,mild response to pain) Psychiatric: other (unable to obtain) CBC and BMP: 04/28/17 05:10 04/28/17 05:10 ABG, PT/INR, D-dimer: ABG POC ABG pH 7.442 (7.35-7.45) 01/31/17 18:55 ABG pH 7.420 pH Units (7.350-7.450) 01/17/17 04:35 POC ABG pCO2 32.8 (35-45) L 01/31/17 18:55 ABG pCO2 34.5 mm Hg 01/17/17 04:35 POC ABG pO2 82 (80-105) 01/31/17 18:55 ABG pO2 160.3 mm Hg (80.0-90.0) H 01/17/17 04:35 POC ABG HCO3 22.4 01/31/17 18:55 POC ABG Total CO2 23 01/31/17 18:55 POC ABG O2 Sat 97 01/31/17 18:55 ABG O2 Saturation 99.0 % (95.0-99.0) 01/17/17 04:35 PT/INR, D-dimer PT 14.1 Sec. (12.2-14.9) 01/17/17 04:10 INR 1.04 (0.87-1.13) 01/17/17 04:10 Abnormal lab findings: Abnormal Labs 01/09/17 01/09/17 01/09/17 10:16 10:16 10:16 WBC RBC Hgb 9.7 L Hct 28.4 L MCV 76 L MCH 26 L RDW 17.2 H Plt Count 448 H Lymph % (Auto) [place] % (Auto) Eos % (Auto) [place] # Seg Neutrophils % 79.5 H Seg Neuts % (Manual) Lymphocytes % (Manual) Seg Neutrophils # Seg Neutrophils # Man Lymphocytes # (Manual) APTT 39.6 H POC ABG pH ABG pH POC ABG pCO2 POC ABG pO2 ABG pO2 ABG HCO3 ABG Base Excess ABG Hemoglobin VBG pH Oxyhemoglobin Sodium 132 L Potassium Chloride 96.7 L Carbon Dioxide 21 L BUN 34 H Creatinine Glucose POC Glucose Lactic Acid Calcium 8.3 L AST ALT Alkaline Phosphatase 151 H CK-MB (CK-2) 7.1 H CK-MB (CK-2) Rel Index 5.2 H Total Protein Albumin 3.3 L TSH Urine WBC (Auto) Salicylates 01/09/17 01/09/17 01/09/17 10:16 10:16 10:16 WBC RBC Hgb Hct MCV MCH RDW Plt Count Lymph % (Auto) [place] % (Auto) Eos % (Auto) [place] # Seg Neutrophils % Seg Neuts % (Manual) Lymphocytes % (Manual) Seg Neutrophils # Seg Neutrophils # Man Lymphocytes # (Manual) APTT POC ABG pH ABG pH POC ABG pCO2 POC ABG pO2 ABG pO2 ABG HCO3 ABG Base Excess ABG Hemoglobin VBG pH 7.284 L Oxyhemoglobin Sodium Potassium Chloride Carbon Dioxide BUN Creatinine Glucose POC Glucose Lactic Acid Calcium AST ALT Alkaline Phosphatase CK-MB (CK-2) CK-MB (CK-2) Rel Index Total Protein Albumin TSH 52.800 H Urine WBC (Auto) Salicylates < 0.3 L 01/09/17 01/09/17 01/09/17 10:23 11:14 12:49 WBC RBC Hgb Hct MCV MCH RDW Plt Count Lymph % (Auto) [place] % (Auto) Eos % (Auto) [place] # Seg Neutrophils % Seg Neuts % (Manual) Lymphocytes % (Manual) Seg Neutrophils # Seg Neutrophils # Man Lymphocytes # (Manual) APTT POC ABG pH ABG pH POC ABG pCO2 POC ABG pO2 643 H ABG pO2 ABG HCO3 ABG Base Excess ABG Hemoglobin VBG pH Oxyhemoglobin Sodium Potassium Chloride Carbon Dioxide BUN Creatinine Glucose POC Glucose < 40 L Lactic Acid Calcium AST ALT Alkaline Phosphatase CK-MB (CK-2) CK-MB (CK-2) Rel Index Total Protein Albumin TSH Urine WBC (Auto) 61.0 H Salicylates 01/09/17 01/09/17 01/09/17 13:13 14:21 15:09 WBC RBC Hgb Hct MCV MCH RDW Plt Count Lymph % (Auto) [place] % (Auto) Eos % (Auto) [place] # Seg Neutrophils % Seg Neuts % (Manual) Lymphocytes % (Manual) Seg Neutrophils # Seg Neutrophils # Man Lymphocytes # (Manual) APTT POC ABG pH ABG pH POC ABG pCO2 POC ABG pO2 ABG pO2 ABG HCO3 ABG Base Excess ABG Hemoglobin VBG pH Oxyhemoglobin Sodium Potassium Chloride Carbon Dioxide BUN Creatinine Glucose POC Glucose 128 H 65 L 120 H Lactic Acid Calcium AST ALT Alkaline Phosphatase CK-MB (CK-2) CK-MB (CK-2) Rel Index Total Protein Albumin TSH Urine WBC (Auto) Salicylates 01/09/17 01/09/17 01/10/17 16:28 17:14 04:30 WBC 24.1 H RBC 3.38 L Hgb 8.5 L Hct 26.0 L MCV 77 L MCH 25 L RDW 17.9 H Plt Count 474 H Lymph % (Auto) [place] % (Auto) Eos % (Auto) [place] # Seg Neutrophils % Seg Neuts % (Manual) 88.0 H Lymphocytes % (Manual) 4.0 L Seg Neutrophils # Seg Neutrophils # Man 21.2 H Lymphocytes # (Manual) 1.0 L APTT POC ABG pH ABG pH POC ABG pCO2 POC ABG pO2 ABG pO2 ABG HCO3 ABG Base Excess ABG Hemoglobin VBG pH Oxyhemoglobin Sodium Potassium Chloride Carbon Dioxide BUN Creatinine Glucose POC Glucose 44 L 112 H Lactic Acid Calcium AST ALT Alkaline Phosphatase CK-MB (CK-2) CK-MB (CK-2) Rel Index Total Protein Albumin TSH Urine WBC (Auto) Salicylates 01/10/17 01/10/17 01/10/17 04:30 05:41 05:45 WBC RBC Hgb Hct MCV MCH RDW Plt Count Lymph % (Auto) [place] % (Auto) Eos % (Auto) [place] # Seg Neutrophils % Seg Neuts % (Manual) Lymphocytes % (Manual) Seg Neutrophils # Seg Neutrophils # Man Lymphocytes # (Manual) APTT POC ABG pH ABG pH POC ABG pCO2 26.6 L POC ABG pO2 207 H ABG pO2 ABG HCO3 ABG Base Excess ABG Hemoglobin VBG pH Oxyhemoglobin Sodium Potassium Chloride Carbon Dioxide 17 L BUN 27 H Creatinine Glucose POC Glucose 68 L Lactic Acid Calcium 7.5 L AST ALT Alkaline Phosphatase CK-MB (CK-2) CK-MB (CK-2) Rel Index Total Protein Albumin TSH Urine WBC (Auto) Salicylates 01/10/17 01/10/17 01/10/17 07:47 10:50 13:41 WBC RBC Hgb Hct MCV MCH RDW Plt Count Lymph % (Auto) [place] % (Auto) Eos % (Auto) [place] # Seg Neutrophils % Seg Neuts % (Manual) Lymphocytes % (Manual) Seg Neutrophils # Seg Neutrophils # Man Lymphocytes # (Manual) APTT POC ABG pH ABG pH POC ABG pCO2 POC ABG pO2 ABG pO2 ABG HCO3 ABG Base Excess ABG Hemoglobin VBG pH Oxyhemoglobin Sodium Potassium Chloride Carbon Dioxide BUN Creatinine Glucose POC Glucose 148 H 165 H 114 H Lactic Acid Calcium AST ALT Alkaline Phosphatase CK-MB (CK-2) CK-MB (CK-2) Rel Index Total Protein Albumin TSH Urine WBC (Auto) Salicylates 01/10/17 01/10/17 01/10/17 20:20 21:39 23:24 WBC RBC Hgb Hct MCV MCH RDW Plt Count Lymph % (Auto) [place] % (Auto) Eos % (Auto) [place] # Seg Neutrophils % Seg Neuts % (Manual) Lymphocytes % (Manual) Seg Neutrophils # Seg Neutrophils # Man Lymphocytes # (Manual) APTT POC ABG pH ABG pH POC ABG pCO2 POC ABG pO2 ABG pO2 ABG HCO3 ABG Base Excess ABG Hemoglobin VBG pH Oxyhemoglobin Sodium Potassium Chloride Carbon Dioxide BUN Creatinine Glucose POC Glucose 150 H 175 H 155 H Lactic Acid Calcium AST ALT Alkaline Phosphatase CK-MB (CK-2) CK-MB (CK-2) Rel Index Total Protein Albumin TSH Urine WBC (Auto) Salicylates 01/11/17 01/11/17 01/11/17 00:19 04:06 05:20 WBC 15.2 H RBC 3.40 L Hgb 8.9 L Hct 26.3 L MCV 78 L MCH 26 L RDW 18.6 H Plt Count 462 H Lymph % (Auto) 13.2 L [place] % (Auto) Eos % (Auto) [place] # Seg Neutrophils % 80.8 H Seg Neuts % (Manual) Lymphocytes % (Manual) Seg Neutrophils # 12.3 H Seg Neutrophils # Man Lymphocytes # (Manual) APTT POC ABG pH 7.463 H ABG pH POC ABG pCO2 26.2 L POC ABG pO2 185 H ABG pO2 ABG HCO3 ABG Base Excess ABG Hemoglobin VBG pH Oxyhemoglobin Sodium Potassium Chloride Carbon Dioxide BUN Creatinine Glucose POC Glucose 163 H Lactic Acid Calcium AST ALT Alkaline Phosphatase CK-MB (CK-2) CK-MB (CK-2) Rel Index Total Protein Albumin TSH Urine WBC (Auto) Salicylates 01/11/17 01/11/17 01/11/17 05:20 06:21 07:57 WBC RBC Hgb Hct MCV MCH RDW Plt Count Lymph % (Auto) [place] % (Auto) Eos % (Auto) [place] # Seg Neutrophils % Seg Neuts % (Manual) Lymphocytes % (Manual) Seg Neutrophils # Seg Neutrophils # Man Lymphocytes # (Manual) APTT POC ABG pH ABG pH POC ABG pCO2 POC ABG pO2 ABG pO2 ABG HCO3 ABG Base Excess ABG Hemoglobin VBG pH Oxyhemoglobin Sodium Potassium 3.4 L Chloride 111.5 H Carbon Dioxide 17 L BUN Creatinine Glucose 147 H POC Glucose 139 H 188 H Lactic Acid Calcium 8.0 L AST ALT Alkaline Phosphatase CK-MB (CK-2) CK-MB (CK-2) Rel Index Total Protein Albumin TSH Urine WBC (Auto) Salicylates 01/11/17 01/11/17 01/11/17 11:46 16:50 23:15 WBC RBC Hgb Hct MCV MCH RDW Plt Count Lymph % (Auto) [place] % (Auto) Eos % (Auto) [place] # Seg Neutrophils % Seg Neuts % (Manual) Lymphocytes % (Manual) Seg Neutrophils # Seg Neutrophils # Man Lymphocytes # (Manual) APTT POC ABG pH ABG pH POC ABG pCO2 POC ABG pO2 ABG pO2 ABG HCO3 ABG Base Excess ABG Hemoglobin VBG pH Oxyhemoglobin Sodium Potassium Chloride Carbon Dioxide BUN Creatinine Glucose POC Glucose 199 H 235 H 155 H Lactic Acid Calcium AST ALT Alkaline Phosphatase CK-MB (CK-2) CK-MB (CK-2) Rel Index Total Protein Albumin TSH Urine WBC (Auto) Salicylates 01/12/17 01/12/17 01/12/17 05:02 06:56 14:50 WBC RBC Hgb Hct MCV MCH RDW Plt Count Lymph % (Auto) [place] % (Auto) Eos % (Auto) [place] # Seg Neutrophils % Seg Neuts % (Manual) Lymphocytes % (Manual) Seg Neutrophils # Seg Neutrophils # Man Lymphocytes # (Manual) APTT POC ABG pH ABG pH POC ABG pCO2 28.0 L POC ABG pO2 178 H ABG pO2 ABG HCO3 ABG Base Excess ABG Hemoglobin VBG pH Oxyhemoglobin Sodium Potassium Chloride Carbon Dioxide BUN Creatinine Glucose POC Glucose 119 H 164 H Lactic Acid Calcium AST ALT Alkaline Phosphatase CK-MB (CK-2) CK-MB (CK-2) Rel Index Total Protein Albumin TSH Urine WBC (Auto) Salicylates 01/13/17 01/13/17 01/13/17 03:37 03:37 04:26 WBC RBC 3.61 L Hgb 9.3 L Hct 28.0 L MCV 78 L MCH 26 L RDW 18.2 H Plt Count Lymph % (Auto) [place] % (Auto) Eos % (Auto) [place] # Seg Neutrophils % Seg Neuts % (Manual) Lymphocytes % (Manual) Seg Neutrophils # Seg Neutrophils # Man Lymphocytes # (Manual) APTT POC ABG pH 7.485 H ABG pH POC ABG pCO2 25.4 L POC ABG pO2 73 L ABG pO2 ABG HCO3 ABG Base Excess ABG Hemoglobin VBG pH Oxyhemoglobin Sodium Potassium Chloride 112.4 H Carbon Dioxide 19 L BUN Creatinine Glucose 118 H POC Glucose Lactic Acid Calcium 8.0 L AST ALT Alkaline Phosphatase CK-MB (CK-2) CK-MB (CK-2) Rel Index Total Protein Albumin TSH Urine WBC (Auto) Salicylates 01/13/17 01/13/17 01/13/17 06:15 11:50 17:31 WBC RBC Hgb Hct MCV MCH RDW Plt Count Lymph % (Auto) [place] % (Auto) Eos % (Auto) [place] # Seg Neutrophils % Seg Neuts % (Manual) Lymphocytes % (Manual) Seg Neutrophils # Seg Neutrophils # Man Lymphocytes # (Manual) APTT POC ABG pH ABG pH POC ABG pCO2 POC ABG pO2 ABG pO2 ABG HCO3 ABG Base Excess ABG Hemoglobin VBG pH Oxyhemoglobin Sodium Potassium Chloride Carbon Dioxide BUN Creatinine Glucose POC Glucose 116 H 171 H 203 H Lactic Acid Calcium AST ALT Alkaline Phosphatase CK-MB (CK-2) CK-MB (CK-2) Rel Index Total Protein Albumin TSH Urine WBC (Auto) Salicylates 01/14/17 01/14/17 01/14/17 00:02 04:50 04:50 WBC RBC 3.32 L Hgb 8.5 L Hct 26.1 L MCV 79 L MCH 26 L RDW 18.2 H Plt Count Lymph % (Auto) [place] % (Auto) 9.0 H Eos % (Auto) [place] # Seg Neutrophils % Seg Neuts % (Manual) Lymphocytes % (Manual) Seg Neutrophils # Seg Neutrophils # Man Lymphocytes # (Manual) APTT POC ABG pH ABG pH POC ABG pCO2 POC ABG pO2 ABG pO2 ABG HCO3 ABG Base Excess ABG Hemoglobin VBG pH Oxyhemoglobin Sodium Potassium Chloride 112.5 H Carbon Dioxide BUN Creatinine Glucose 149 H POC Glucose 157 H Lactic Acid Calcium 8.1 L AST ALT Alkaline Phosphatase CK-MB (CK-2) CK-MB (CK-2) Rel Index Total Protein Albumin TSH Urine WBC (Auto) Salicylates 01/14/17 01/14/17 01/14/17 05:10 11:27 14:07 WBC RBC Hgb Hct MCV MCH RDW Plt Count Lymph % (Auto) [place] % (Auto) Eos % (Auto) [place] # Seg Neutrophils % Seg Neuts % (Manual) Lymphocytes % (Manual) Seg Neutrophils # Seg Neutrophils # Man Lymphocytes # (Manual) APTT POC ABG pH ABG pH POC ABG pCO2 POC ABG pO2 ABG pO2 ABG HCO3 ABG Base Excess ABG Hemoglobin VBG pH Oxyhemoglobin Sodium Potassium Chloride Carbon Dioxide BUN Creatinine Glucose POC Glucose 176 H 147 H Lactic Acid Calcium AST ALT Alkaline Phosphatase CK-MB (CK-2) CK-MB (CK-2) Rel Index Total Protein Albumin TSH Urine WBC (Auto) 53.0 H Salicylates 01/14/17 01/15/17 01/15/17 16:52 00:04 05:26 WBC RBC Hgb Hct MCV MCH RDW Plt Count Lymph % (Auto) [place] % (Auto) Eos % (Auto) [place] # Seg Neutrophils % Seg Neuts % (Manual) Lymphocytes % (Manual) Seg Neutrophils # Seg Neutrophils # Man Lymphocytes # (Manual) APTT POC ABG pH ABG pH POC ABG pCO2 POC ABG pO2 ABG pO2 ABG HCO3 ABG Base Excess ABG Hemoglobin VBG pH Oxyhemoglobin Sodium Potassium Chloride Carbon Dioxide BUN Creatinine Glucose POC Glucose 131 H 193 H 215 H Lactic Acid Calcium AST ALT Alkaline Phosphatase CK-MB (CK-2) CK-MB (CK-2) Rel Index Total Protein Albumin TSH Urine WBC (Auto) Salicylates 01/15/17 01/15/17 01/15/17 11:49 17:47 21:33 WBC RBC Hgb Hct MCV MCH RDW Plt Count Lymph % (Auto) [place] % (Auto) Eos % (Auto) [place] # Seg Neutrophils % Seg Neuts % (Manual) Lymphocytes % (Manual) Seg Neutrophils # Seg Neutrophils # Man Lymphocytes # (Manual) APTT POC ABG pH ABG pH POC ABG pCO2 POC ABG pO2 ABG pO2 ABG HCO3 ABG Base Excess ABG Hemoglobin VBG pH Oxyhemoglobin Sodium Potassium Chloride Carbon Dioxide BUN Creatinine Glucose POC Glucose 121 H 211 H 275 H Lactic Acid Calcium AST ALT Alkaline Phosphatase CK-MB (CK-2) CK-MB (CK-2) Rel Index Total Protein Albumin TSH Urine WBC (Auto) Salicylates 01/16/17 01/16/17 01/16/17 04:30 05:28 13:45 WBC RBC Hgb Hct MCV MCH RDW Plt Count Lymph % (Auto) [place] % (Auto) Eos % (Auto) [place] # Seg Neutrophils % Seg Neuts % (Manual) Lymphocytes % (Manual) Seg Neutrophils # Seg Neutrophils # Man Lymphocytes # (Manual) APTT POC ABG pH ABG pH 7.457 H POC ABG pCO2 POC ABG pO2 ABG pO2 55.1 L ABG HCO3 19.4 L ABG Base Excess -4.0 L ABG Hemoglobin 6.8 L VBG pH Oxyhemoglobin 94.9 L Sodium Potassium Chloride Carbon Dioxide BUN Creatinine Glucose POC Glucose 271 H 236 H Lactic Acid Calcium AST ALT Alkaline Phosphatase CK-MB (CK-2) CK-MB (CK-2) Rel Index Total Protein Albumin TSH Urine WBC (Auto) Salicylates 01/16/17 01/17/17 01/17/17 21:39 04:10 04:10 WBC 4.4 L RBC 2.98 L Hgb 7.7 L Hct 23.3 L MCV 78 L MCH 26 L RDW 18.1 H Plt Count Lymph % (Auto) [place] % (Auto) Eos % (Auto) [place] # Seg Neutrophils % Seg Neuts % (Manual) Lymphocytes % (Manual) Seg Neutrophils # Seg Neutrophils # Man Lymphocytes # (Manual) APTT POC ABG pH ABG pH POC ABG pCO2 POC ABG pO2 ABG pO2 ABG HCO3 ABG Base Excess ABG Hemoglobin VBG pH Oxyhemoglobin Sodium Potassium 3.3 L Chloride 108.7 H Carbon Dioxide 20 L BUN 8 L Creatinine Glucose 202 H POC Glucose 258 H Lactic Acid Calcium 7.6 L AST ALT Alkaline Phosphatase CK-MB (CK-2) CK-MB (CK-2) Rel Index Total Protein Albumin TSH Urine WBC (Auto) Salicylates 01/17/17 01/17/17 01/17/17 04:35 12:23 16:01 WBC RBC Hgb Hct MCV MCH RDW Plt Count Lymph % (Auto) [place] % (Auto) Eos % (Auto) [place] # Seg Neutrophils % Seg Neuts % (Manual) Lymphocytes % (Manual) Seg Neutrophils # Seg Neutrophils # Man Lymphocytes # (Manual) APTT POC ABG pH ABG pH POC ABG pCO2 POC ABG pO2 ABG pO2 160.3 H ABG HCO3 ABG Base Excess -2.3 L ABG Hemoglobin 7.9 L VBG pH Oxyhemoglobin Sodium Potassium Chloride Carbon Dioxide BUN Creatinine Glucose POC Glucose 321 H 239 H Lactic Acid Calcium AST ALT Alkaline Phosphatase CK-MB (CK-2) CK-MB (CK-2) Rel Index Total Protein Albumin TSH Urine WBC (Auto) Salicylates 01/18/17 01/18/17 01/18/17 05:07 12:09 17:54 WBC RBC Hgb Hct MCV MCH RDW Plt Count Lymph % (Auto) [place] % (Auto) Eos % (Auto) [place] # Seg Neutrophils % Seg Neuts % (Manual) Lymphocytes % (Manual) Seg Neutrophils # Seg Neutrophils # Man Lymphocytes # (Manual) APTT POC ABG pH ABG pH POC ABG pCO2 POC ABG pO2 ABG pO2 ABG HCO3 ABG Base Excess ABG Hemoglobin VBG pH Oxyhemoglobin Sodium Potassium Chloride Carbon Dioxide BUN Creatinine Glucose POC Glucose 155 H 203 H 132 H Lactic Acid Calcium AST ALT Alkaline Phosphatase CK-MB (CK-2) CK-MB (CK-2) Rel Index Total Protein Albumin TSH Urine WBC (Auto) Salicylates 01/18/17 01/19/17 01/19/17 23:43 04:28 12:11 WBC RBC Hgb Hct MCV MCH RDW Plt Count Lymph % (Auto) [place] % (Auto) Eos % (Auto) [place] # Seg Neutrophils % Seg Neuts % (Manual) Lymphocytes % (Manual) Seg Neutrophils # Seg Neutrophils # Man Lymphocytes # (Manual) APTT POC ABG pH ABG pH POC ABG pCO2 POC ABG pO2 ABG pO2 ABG HCO3 ABG Base Excess ABG Hemoglobin VBG pH Oxyhemoglobin Sodium Potassium Chloride Carbon Dioxide BUN Creatinine Glucose POC Glucose 125 H 182 H 153 H Lactic Acid Calcium AST ALT Alkaline Phosphatase CK-MB (CK-2) CK-MB (CK-2) Rel Index Total Protein Albumin TSH Urine WBC (Auto) Salicylates 01/19/17 01/20/17 01/20/17 17:23 00:12 05:44 WBC RBC Hgb Hct MCV MCH RDW Plt Count Lymph % (Auto) [place] % (Auto) Eos % (Auto) [place] # Seg Neutrophils % Seg Neuts % (Manual) Lymphocytes % (Manual) Seg Neutrophils # Seg Neutrophils # Man Lymphocytes # (Manual) APTT POC ABG pH ABG pH POC ABG pCO2 POC ABG pO2 ABG pO2 ABG HCO3 ABG Base Excess ABG Hemoglobin VBG pH Oxyhemoglobin Sodium Potassium Chloride Carbon Dioxide BUN Creatinine Glucose POC Glucose 66 L 139 H 176 H Lactic Acid Calcium AST ALT Alkaline Phosphatase CK-MB (CK-2) CK-MB (CK-2) Rel Index Total Protein Albumin TSH Urine WBC (Auto) Salicylates 01/20/17 01/20/17 01/20/17 11:48 17:42 23:43 WBC RBC Hgb Hct MCV MCH RDW Plt Count Lymph % (Auto) [place] % (Auto) Eos % (Auto) [place] # Seg Neutrophils % Seg Neuts % (Manual) Lymphocytes % (Manual) Seg Neutrophils # Seg Neutrophils # Man Lymphocytes # (Manual) APTT POC ABG pH ABG pH POC ABG pCO2 POC ABG pO2 ABG pO2 ABG HCO3 ABG Base Excess ABG Hemoglobin VBG pH Oxyhemoglobin Sodium Potassium Chloride Carbon Dioxide BUN Creatinine Glucose POC Glucose 218 H 132 H 178 H Lactic Acid Calcium AST ALT Alkaline Phosphatase CK-MB (CK-2) CK-MB (CK-2) Rel Index Total Protein Albumin TSH Urine WBC (Auto) Salicylates 01/21/17 01/21/17 01/21/17 05:34 11:17 23:37 WBC RBC Hgb Hct MCV MCH RDW Plt Count Lymph % (Auto) [place] % (Auto) Eos % (Auto) [place] # Seg Neutrophils % Seg Neuts % (Manual) Lymphocytes % (Manual) Seg Neutrophils # Seg Neutrophils # Man Lymphocytes # (Manual) APTT POC ABG pH ABG pH POC ABG pCO2 POC ABG pO2 ABG pO2 ABG HCO3 ABG Base Excess ABG Hemoglobin VBG pH Oxyhemoglobin Sodium Potassium Chloride Carbon Dioxide BUN Creatinine Glucose POC Glucose 106 H 213 H 140 H Lactic Acid Calcium AST ALT Alkaline Phosphatase CK-MB (CK-2) CK-MB (CK-2) Rel Index Total Protein Albumin TSH Urine WBC (Auto) Salicylates 01/22/17 01/22/17 01/22/17 04:00 04:00 04:58 WBC RBC 3.26 L Hgb 8.3 L Hct 25.5 L MCV 78 L MCH 25 L RDW 17.9 H Plt Count Lymph % (Auto) [place] % (Auto) 7.9 H Eos % (Auto) 6.2 H [place] # Seg Neutrophils % Seg Neuts % (Manual) Lymphocytes % (Manual) Seg Neutrophils # Seg Neutrophils # Man Lymphocytes # (Manual) APTT POC ABG pH ABG pH POC ABG pCO2 POC ABG pO2 ABG pO2 ABG HCO3 ABG Base Excess ABG Hemoglobin VBG pH Oxyhemoglobin Sodium Potassium Chloride 95.5 L Carbon Dioxide 31 H D BUN Creatinine Glucose 134 H POC Glucose 146 H Lactic Acid Calcium AST 44 H ALT Alkaline Phosphatase 379 H CK-MB (CK-2) CK-MB (CK-2) Rel Index Total Protein Albumin 2.7 L TSH Urine WBC (Auto) Salicylates 01/22/17 01/22/17 01/22/17 12:12 18:12 23:39 WBC RBC Hgb Hct MCV MCH RDW Plt Count Lymph % (Auto) [place] % (Auto) Eos % (Auto) [place] # Seg Neutrophils % Seg Neuts % (Manual) Lymphocytes % (Manual) Seg Neutrophils # Seg Neutrophils # Man Lymphocytes # (Manual) APTT POC ABG pH ABG pH POC ABG pCO2 POC ABG pO2 ABG pO2 ABG HCO3 ABG Base Excess ABG Hemoglobin VBG pH Oxyhemoglobin Sodium Potassium Chloride Carbon Dioxide BUN Creatinine Glucose POC Glucose 255 H 182 H 134 H Lactic Acid Calcium AST ALT Alkaline Phosphatase CK-MB (CK-2) CK-MB (CK-2) Rel Index Total Protein Albumin TSH Urine WBC (Auto) Salicylates 01/23/17 01/23/17 01/23/17 04:43 12:12 17:36 WBC RBC Hgb Hct MCV MCH RDW Plt Count Lymph % (Auto) [place] % (Auto) Eos % (Auto) [place] # Seg Neutrophils % Seg Neuts % (Manual) Lymphocytes % (Manual) Seg Neutrophils # Seg Neutrophils # Man Lymphocytes # (Manual) APTT POC ABG pH ABG pH POC ABG pCO2 POC ABG pO2 ABG pO2 ABG HCO3 ABG Base Excess ABG Hemoglobin VBG pH Oxyhemoglobin Sodium Potassium Chloride Carbon Dioxide BUN Creatinine Glucose POC Glucose 218 H 128 H 156 H Lactic Acid Calcium AST ALT Alkaline Phosphatase CK-MB (CK-2) CK-MB (CK-2) Rel Index Total Protein Albumin TSH Urine WBC (Auto) Salicylates 01/24/17 01/24/17 01/24/17 00:08 05:16 11:40 WBC RBC Hgb Hct MCV MCH RDW Plt Count Lymph % (Auto) [place] % (Auto) Eos % (Auto) [place] # Seg Neutrophils % Seg Neuts % (Manual) Lymphocytes % (Manual) Seg Neutrophils # Seg Neutrophils # Man Lymphocytes # (Manual) APTT POC ABG pH ABG pH POC ABG pCO2 POC ABG pO2 ABG pO2 ABG HCO3 ABG Base Excess ABG Hemoglobin VBG pH Oxyhemoglobin Sodium Potassium Chloride Carbon Dioxide BUN Creatinine Glucose POC Glucose 129 H 169 H 187 H Lactic Acid Calcium AST ALT Alkaline Phosphatase CK-MB (CK-2) CK-MB (CK-2) Rel Index Total Protein Albumin TSH Urine WBC (Auto) Salicylates 01/24/17 01/24/17 01/25/17 17:43 23:23 04:56 WBC RBC Hgb Hct MCV MCH RDW Plt Count Lymph % (Auto) [place] % (Auto) Eos % (Auto) [place] # Seg Neutrophils % Seg Neuts % (Manual) Lymphocytes % (Manual) Seg Neutrophils # Seg Neutrophils # Man Lymphocytes # (Manual) APTT POC ABG pH ABG pH POC ABG pCO2 POC ABG pO2 ABG pO2 ABG HCO3 ABG Base Excess ABG Hemoglobin VBG pH Oxyhemoglobin Sodium Potassium Chloride Carbon Dioxide BUN Creatinine Glucose POC Glucose 215 H 222 H 210 H Lactic Acid Calcium AST ALT Alkaline Phosphatase CK-MB (CK-2) CK-MB (CK-2) Rel Index Total Protein Albumin TSH Urine WBC (Auto) Salicylates 01/25/17 01/25/17 01/26/17 11:52 17:37 00:02 WBC RBC Hgb Hct MCV MCH RDW Plt Count Lymph % (Auto) [place] % (Auto) Eos % (Auto) [place] # Seg Neutrophils % Seg Neuts % (Manual) Lymphocytes % (Manual) Seg Neutrophils # Seg Neutrophils # Man Lymphocytes # (Manual) APTT POC ABG pH ABG pH POC ABG pCO2 POC ABG pO2 ABG pO2 ABG HCO3 ABG Base Excess ABG Hemoglobin VBG pH Oxyhemoglobin Sodium Potassium Chloride Carbon Dioxide BUN Creatinine Glucose POC Glucose 284 H 218 H 192 H Lactic Acid Calcium AST ALT Alkaline Phosphatase CK-MB (CK-2) CK-MB (CK-2) Rel Index Total Protein Albumin TSH Urine WBC (Auto) Salicylates 01/26/17 01/26/17 01/26/17 05:33 12:17 17:50 WBC RBC Hgb Hct MCV MCH RDW Plt Count Lymph % (Auto) [place] % (Auto) Eos % (Auto) [place] # Seg Neutrophils % Seg Neuts % (Manual) Lymphocytes % (Manual) Seg Neutrophils # Seg Neutrophils # Man Lymphocytes # (Manual) APTT POC ABG pH ABG pH POC ABG pCO2 POC ABG pO2 ABG pO2 ABG HCO3 ABG Base Excess ABG Hemoglobin VBG pH Oxyhemoglobin Sodium Potassium Chloride Carbon Dioxide BUN Creatinine Glucose POC Glucose 199 H 227 H 229 H Lactic Acid Calcium AST ALT Alkaline Phosphatase CK-MB (CK-2) CK-MB (CK-2) Rel Index Total Protein Albumin TSH Urine WBC (Auto) Salicylates 01/26/17 01/27/17 01/27/17 23:57 05:31 11:42 WBC RBC Hgb Hct MCV MCH RDW Plt Count Lymph % (Auto) [place] % (Auto) Eos % (Auto) [place] # Seg Neutrophils % Seg Neuts % (Manual) Lymphocytes % (Manual) Seg Neutrophils # Seg Neutrophils # Man Lymphocytes # (Manual) APTT POC ABG pH ABG pH POC ABG pCO2 POC ABG pO2 ABG pO2 ABG HCO3 ABG Base Excess ABG Hemoglobin VBG pH Oxyhemoglobin Sodium Potassium Chloride Carbon Dioxide BUN Creatinine Glucose POC Glucose 186 H 285 H 260 H Lactic Acid Calcium AST ALT Alkaline Phosphatase CK-MB (CK-2) CK-MB (CK-2) Rel Index Total Protein Albumin TSH Urine WBC (Auto) Salicylates 01/27/17 01/27/17 01/27/17 17:47 23:58 Unknown WBC 12.1 H RBC 3.28 L Hgb 8.5 L Hct 25.5 L MCV 78 L MCH 26 L RDW 16.8 H Plt Count 601 H Lymph % (Auto) [place] % (Auto) Eos % (Auto) [place] # Seg Neutrophils % Seg Neuts % (Manual) Lymphocytes % (Manual) Seg Neutrophils # Seg Neutrophils # Man Lymphocytes # (Manual) APTT POC ABG pH ABG pH POC ABG pCO2 POC ABG pO2 ABG pO2 ABG HCO3 ABG Base Excess ABG Hemoglobin VBG pH Oxyhemoglobin Sodium Potassium Chloride Carbon Dioxide BUN Creatinine Glucose POC Glucose 329 H 225 H Lactic Acid Calcium AST ALT Alkaline Phosphatase CK-MB (CK-2) CK-MB (CK-2) Rel Index Total Protein Albumin TSH Urine WBC (Auto) Salicylates 01/27/17 01/28/17 01/28/17 Unknown 03:44 03:44 WBC RBC 3.14 L Hgb 8.2 L Hct 24.1 L MCV 77 L MCH 26 L RDW 16.9 H Plt Count 567 H Lymph % (Auto) [place] % (Auto) Eos % (Auto) [place] # Seg Neutrophils % Seg Neuts % (Manual) Lymphocytes % (Manual) Seg Neutrophils # Seg Neutrophils # Man Lymphocytes # (Manual) APTT POC ABG pH ABG pH POC ABG pCO2 POC ABG pO2 ABG pO2 ABG HCO3 ABG Base Excess ABG Hemoglobin VBG pH Oxyhemoglobin Sodium 128 L Potassium 5.4 H Chloride 87.5 L Carbon Dioxide BUN 44 H 42 H Creatinine Glucose 250 H 128 H POC Glucose Lactic Acid Calcium AST ALT Alkaline Phosphatase CK-MB (CK-2) CK-MB (CK-2) Rel Index Total Protein Albumin TSH Urine WBC (Auto) Salicylates 01/28/17 01/28/17 01/28/17 11:43 16:47 17:52 WBC RBC Hgb Hct MCV MCH RDW Plt Count Lymph % (Auto) [place] % (Auto) Eos % (Auto) [place] # Seg Neutrophils % Seg Neuts % (Manual) Lymphocytes % (Manual) Seg Neutrophils # Seg Neutrophils # Man Lymphocytes # (Manual) APTT POC ABG pH ABG pH POC ABG pCO2 POC ABG pO2 ABG pO2 ABG HCO3 ABG Base Excess ABG Hemoglobin VBG pH Oxyhemoglobin Sodium Potassium Chloride Carbon Dioxide BUN Creatinine Glucose POC Glucose 351 H 249 H Lactic Acid Calcium AST ALT Alkaline Phosphatase CK-MB (CK-2) CK-MB (CK-2) Rel Index Total Protein Albumin TSH Urine WBC (Auto) > 182.0 H Salicylates 01/29/17 01/29/17 01/29/17 05:25 05:25 09:32 WBC 13.6 H RBC 3.25 L Hgb 8.3 L Hct 25.1 L MCV 77 L MCH 26 L RDW 16.8 H Plt Count 514 H Lymph % (Auto) [place] % (Auto) Eos % (Auto) [place] # Seg Neutrophils % Seg Neuts % (Manual) Lymphocytes % (Manual) Seg Neutrophils # Seg Neutrophils # Man Lymphocytes # (Manual) APTT POC ABG pH ABG pH POC ABG pCO2 POC ABG pO2 ABG pO2 ABG HCO3 ABG Base Excess ABG Hemoglobin VBG pH Oxyhemoglobin Sodium Potassium Chloride 97.8 L Carbon Dioxide BUN 34 H Creatinine Glucose 222 H POC Glucose Lactic Acid 2.50 H* Calcium AST ALT Alkaline Phosphatase CK-MB (CK-2) CK-MB (CK-2) Rel Index Total Protein Albumin TSH Urine WBC (Auto) Salicylates 01/29/17 01/29/17 01/29/17 11:56 18:11 23:55 WBC RBC Hgb Hct MCV MCH RDW Plt Count Lymph % (Auto) [place] % (Auto) Eos % (Auto) [place] # Seg Neutrophils % Seg Neuts % (Manual) Lymphocytes % (Manual) Seg Neutrophils # Seg Neutrophils # Man Lymphocytes # (Manual) APTT POC ABG pH ABG pH POC ABG pCO2 POC ABG pO2 ABG pO2 ABG HCO3 ABG Base Excess ABG Hemoglobin VBG pH Oxyhemoglobin Sodium Potassium Chloride Carbon Dioxide BUN Creatinine Glucose POC Glucose 261 H 215 H 176 H Lactic Acid Calcium AST ALT Alkaline Phosphatase CK-MB (CK-2) CK-MB (CK-2) Rel Index Total Protein Albumin TSH Urine WBC (Auto) Salicylates 01/30/17 01/30/17 01/30/17 05:31 05:31 05:34 WBC 15.2 H RBC 3.09 L Hgb 7.9 L Hct 23.9 L MCV 77 L MCH 26 L RDW 16.9 H Plt Count 569 H Lymph % (Auto) [place] % (Auto) Eos % (Auto) [place] # Seg Neutrophils % Seg Neuts % (Manual) Lymphocytes % (Manual) Seg Neutrophils # Seg Neutrophils # Man Lymphocytes # (Manual) APTT POC ABG pH ABG pH POC ABG pCO2 POC ABG pO2 ABG pO2 ABG HCO3 ABG Base Excess ABG Hemoglobin VBG pH Oxyhemoglobin Sodium Potassium Chloride Carbon Dioxide BUN 24 H Creatinine Glucose 235 H POC Glucose 243 H Lactic Acid Calcium AST ALT Alkaline Phosphatase CK-MB (CK-2) CK-MB (CK-2) Rel Index Total Protein Albumin TSH Urine WBC (Auto) Salicylates 01/30/17 01/30/17 01/30/17 11:38 17:58 23:29 WBC RBC Hgb Hct MCV MCH RDW Plt Count Lymph % (Auto) [place] % (Auto) Eos % (Auto) [place] # Seg Neutrophils % Seg Neuts % (Manual) Lymphocytes % (Manual) Seg Neutrophils # Seg Neutrophils # Man Lymphocytes # (Manual) APTT POC ABG pH ABG pH POC ABG pCO2 POC ABG pO2 ABG pO2 ABG HCO3 ABG Base Excess ABG Hemoglobin VBG pH Oxyhemoglobin Sodium Potassium Chloride Carbon Dioxide BUN Creatinine Glucose POC Glucose 298 H 208 H 245 H Lactic Acid Calcium AST ALT Alkaline Phosphatase CK-MB (CK-2) CK-MB (CK-2) Rel Index Total Protein Albumin TSH Urine WBC (Auto) Salicylates 01/31/17 01/31/17 01/31/17 04:39 04:39 05:57 WBC 11.4 H RBC 3.22 L Hgb 8.2 L Hct 24.9 L MCV 78 L MCH 25 L RDW 17.2 H Plt Count 576 H Lymph % (Auto) [place] % (Auto) Eos % (Auto) [place] # Seg Neutrophils % Seg Neuts % (Manual) Lymphocytes % (Manual) Seg Neutrophils # Seg Neutrophils # Man Lymphocytes # (Manual) APTT POC ABG pH ABG pH POC ABG pCO2 POC ABG pO2 ABG pO2 ABG HCO3 ABG Base Excess ABG Hemoglobin VBG pH Oxyhemoglobin Sodium Potassium Chloride Carbon Dioxide BUN Creatinine 0.7 L Glucose 223 H POC Glucose 264 H Lactic Acid Calcium AST ALT Alkaline Phosphatase CK-MB (CK-2) CK-MB (CK-2) Rel Index Total Protein Albumin TSH Urine WBC (Auto) Salicylates 01/31/17 01/31/17 01/31/17 12:23 17:41 18:55 WBC RBC Hgb Hct MCV MCH RDW Plt Count Lymph % (Auto) [place] % (Auto) Eos % (Auto) [place] # Seg Neutrophils % Seg Neuts % (Manual) Lymphocytes % (Manual) Seg Neutrophils # Seg Neutrophils # Man Lymphocytes # (Manual) APTT POC ABG pH ABG pH POC ABG pCO2 32.8 L POC ABG pO2 ABG pO2 ABG HCO3 ABG Base Excess ABG Hemoglobin VBG pH Oxyhemoglobin Sodium Potassium Chloride Carbon Dioxide BUN Creatinine Glucose POC Glucose 252 H 208 H Lactic Acid Calcium AST ALT Alkaline Phosphatase CK-MB (CK-2) CK-MB (CK-2) Rel Index Total Protein Albumin TSH Urine WBC (Auto) Salicylates 01/31/17 02/01/17 02/01/17 22:59 03:38 03:38 WBC RBC 2.81 L Hgb 7.4 L Hct 22.1 L MCV 79 L MCH 27 L RDW 17.0 H Plt Count 540 H Lymph % (Auto) [place] % (Auto) Eos % (Auto) [place] # Seg Neutrophils % Seg Neuts % (Manual) Lymphocytes % (Manual) Seg Neutrophils # Seg Neutrophils # Man Lymphocytes # (Manual) APTT POC ABG pH ABG pH POC ABG pCO2 POC ABG pO2 ABG pO2 ABG HCO3 ABG Base Excess ABG Hemoglobin VBG pH Oxyhemoglobin Sodium Potassium Chloride Carbon Dioxide 21 L BUN Creatinine 0.7 L Glucose POC Glucose 40 L Lactic Acid Calcium AST ALT Alkaline Phosphatase CK-MB (CK-2) CK-MB (CK-2) Rel Index Total Protein Albumin TSH Urine WBC (Auto) Salicylates 02/01/17 02/01/17 02/01/17 05:17 12:19 16:44 WBC RBC Hgb Hct MCV MCH RDW Plt Count Lymph % (Auto) [place] % (Auto) Eos % (Auto) [place] # Seg Neutrophils % Seg Neuts % (Manual) Lymphocytes % (Manual) Seg Neutrophils # Seg Neutrophils # Man Lymphocytes # (Manual) APTT POC ABG pH ABG pH POC ABG pCO2 POC ABG pO2 ABG pO2 ABG HCO3 ABG Base Excess ABG Hemoglobin VBG pH Oxyhemoglobin Sodium Potassium Chloride Carbon Dioxide BUN Creatinine Glucose POC Glucose 140 H 213 H 172 H Lactic Acid Calcium AST ALT Alkaline Phosphatase CK-MB (CK-2) CK-MB (CK-2) Rel Index Total Protein Albumin TSH Urine WBC (Auto) Salicylates 02/01/17 02/02/17 02/02/17 23:59 05:14 11:24 WBC RBC Hgb Hct MCV MCH RDW Plt Count Lymph % (Auto) [place] % (Auto) Eos % (Auto) [place] # Seg Neutrophils % Seg Neuts % (Manual) Lymphocytes % (Manual) Seg Neutrophils # Seg Neutrophils # Man Lymphocytes # (Manual) APTT POC ABG pH ABG pH POC ABG pCO2 POC ABG pO2 ABG pO2 ABG HCO3 ABG Base Excess ABG Hemoglobin VBG pH Oxyhemoglobin Sodium Potassium Chloride Carbon Dioxide BUN Creatinine Glucose POC Glucose 181 H 194 H 209 H Lactic Acid Calcium AST ALT Alkaline Phosphatase CK-MB (CK-2) CK-MB (CK-2) Rel Index Total Protein Albumin TSH Urine WBC (Auto) Salicylates 02/02/17 02/02/17 02/02/17 11:46 11:46 17:47 WBC RBC 2.94 L Hgb 7.5 L Hct 23.0 L MCV 78 L MCH 25 L RDW 16.9 H Plt Count 520 H Lymph % (Auto) [place] % (Auto) Eos % (Auto) [place] # Seg Neutrophils % Seg Neuts % (Manual) Lymphocytes % (Manual) Seg Neutrophils # Seg Neutrophils # Man Lymphocytes # (Manual) APTT POC ABG pH ABG pH POC ABG pCO2 POC ABG pO2 ABG pO2 ABG HCO3 ABG Base Excess ABG Hemoglobin VBG pH Oxyhemoglobin Sodium Potassium Chloride Carbon Dioxide BUN Creatinine 0.6 L Glucose 189 H POC Glucose 147 H Lactic Acid Calcium 8.1 L AST ALT Alkaline Phosphatase CK-MB (CK-2) CK-MB (CK-2) Rel Index Total Protein Albumin TSH Urine WBC (Auto) Salicylates 02/02/17 02/03/17 02/03/17 23:32 05:53 11:19 WBC RBC Hgb Hct MCV MCH RDW Plt Count Lymph % (Auto) [place] % (Auto) Eos % (Auto) [place] # Seg Neutrophils % Seg Neuts % (Manual) Lymphocytes % (Manual) Seg Neutrophils # Seg Neutrophils # Man Lymphocytes # (Manual) APTT POC ABG pH ABG pH POC ABG pCO2 POC ABG pO2 ABG pO2 ABG HCO3 ABG Base Excess ABG Hemoglobin VBG pH Oxyhemoglobin Sodium Potassium Chloride Carbon Dioxide BUN Creatinine Glucose POC Glucose 176 H 224 H 228 H Lactic Acid Calcium AST ALT Alkaline Phosphatase CK-MB (CK-2) CK-MB (CK-2) Rel Index Total Protein Albumin TSH Urine WBC (Auto) Salicylates 02/03/17 02/03/17 02/04/17 16:59 23:38 05:45 WBC RBC Hgb Hct MCV MCH RDW Plt Count Lymph % (Auto) [place] % (Auto) Eos % (Auto) [place] # Seg Neutrophils % Seg Neuts % (Manual) Lymphocytes % (Manual) Seg Neutrophils # Seg Neutrophils # Man Lymphocytes # (Manual) APTT POC ABG pH ABG pH POC ABG pCO2 POC ABG pO2 ABG pO2 ABG HCO3 ABG Base Excess ABG Hemoglobin VBG pH Oxyhemoglobin Sodium Potassium Chloride Carbon Dioxide BUN Creatinine Glucose POC Glucose 189 H 191 H 251 H Lactic Acid Calcium AST ALT Alkaline Phosphatase CK-MB (CK-2) CK-MB (CK-2) Rel Index Total Protein Albumin TSH Urine WBC (Auto) Salicylates 02/04/17 02/04/17 02/05/17 11:20 17:20 00:17 WBC RBC Hgb Hct MCV MCH RDW Plt Count Lymph % (Auto) [place] % (Auto) Eos % (Auto) [place] # Seg Neutrophils % Seg Neuts % (Manual) Lymphocytes % (Manual) Seg Neutrophils # Seg Neutrophils # Man Lymphocytes # (Manual) APTT POC ABG pH ABG pH POC ABG pCO2 POC ABG pO2 ABG pO2 ABG HCO3 ABG Base Excess ABG Hemoglobin VBG pH Oxyhemoglobin Sodium Potassium Chloride Carbon Dioxide BUN Creatinine Glucose POC Glucose 243 H 163 H 200 H Lactic Acid Calcium AST ALT Alkaline Phosphatase CK-MB (CK-2) CK-MB (CK-2) Rel Index Total Protein Albumin TSH Urine WBC (Auto) Salicylates 02/05/17 02/05/17 02/05/17 05:38 12:38 16:29 WBC RBC Hgb Hct MCV MCH RDW Plt Count Lymph % (Auto) [place] % (Auto) Eos % (Auto) [place] # Seg Neutrophils % Seg Neuts % (Manual) Lymphocytes % (Manual) Seg Neutrophils # Seg Neutrophils # Man Lymphocytes # (Manual) APTT POC ABG pH ABG pH POC ABG pCO2 POC ABG pO2 ABG pO2 ABG HCO3 ABG Base Excess ABG Hemoglobin VBG pH Oxyhemoglobin Sodium Potassium Chloride Carbon Dioxide BUN Creatinine Glucose POC Glucose 248 H 241 H 257 H Lactic Acid Calcium AST ALT Alkaline Phosphatase CK-MB (CK-2) CK-MB (CK-2) Rel Index Total Protein Albumin TSH Urine WBC (Auto) Salicylates 02/05/17 02/06/17 02/06/17 23:56 05:30 11:50 WBC RBC Hgb Hct MCV MCH RDW Plt Count Lymph % (Auto) [place] % (Auto) Eos % (Auto) [place] # Seg Neutrophils % Seg Neuts % (Manual) Lymphocytes % (Manual) Seg Neutrophils # Seg Neutrophils # Man Lymphocytes # (Manual) APTT POC ABG pH ABG pH POC ABG pCO2 POC ABG pO2 ABG pO2 ABG HCO3 ABG Base Excess ABG Hemoglobin VBG pH Oxyhemoglobin Sodium Potassium Chloride Carbon Dioxide BUN Creatinine Glucose POC Glucose 258 H 120 H 254 H Lactic Acid Calcium AST ALT Alkaline Phosphatase CK-MB (CK-2) CK-MB (CK-2) Rel Index Total Protein Albumin TSH Urine WBC (Auto) Salicylates 02/06/17 02/06/17 02/07/17 17:11 23:50 05:22 WBC RBC Hgb Hct MCV MCH RDW Plt Count Lymph % (Auto) [place] % (Auto) Eos % (Auto) [place] # Seg Neutrophils % Seg Neuts % (Manual) Lymphocytes % (Manual) Seg Neutrophils # Seg Neutrophils # Man Lymphocytes # (Manual) APTT POC ABG pH ABG pH POC ABG pCO2 POC ABG pO2 ABG pO2 ABG HCO3 ABG Base Excess ABG Hemoglobin VBG pH Oxyhemoglobin Sodium Potassium Chloride Carbon Dioxide BUN Creatinine Glucose POC Glucose 149 H 240 H 258 H Lactic Acid Calcium AST ALT Alkaline Phosphatase CK-MB (CK-2) CK-MB (CK-2) Rel Index Total Protein Albumin TSH Urine WBC (Auto) Salicylates 02/07/17 02/07/17 02/07/17 11:15 18:33 23:59 WBC RBC Hgb Hct MCV MCH RDW Plt Count Lymph % (Auto) [place] % (Auto) Eos % (Auto) [place] # Seg Neutrophils % Seg Neuts % (Manual) Lymphocytes % (Manual) Seg Neutrophils # Seg Neutrophils # Man Lymphocytes # (Manual) APTT POC ABG pH ABG pH POC ABG pCO2 POC ABG pO2 ABG pO2 ABG HCO3 ABG Base Excess ABG Hemoglobin VBG pH Oxyhemoglobin Sodium Potassium Chloride Carbon Dioxide BUN Creatinine Glucose POC Glucose 239 H 176 H 186 H Lactic Acid Calcium AST ALT Alkaline Phosphatase CK-MB (CK-2) CK-MB (CK-2) Rel Index Total Protein Albumin TSH Urine WBC (Auto) Salicylates 02/08/17 02/08/17 02/08/17 06:15 11:55 16:55 WBC RBC Hgb Hct MCV MCH RDW Plt Count Lymph % (Auto) [place] % (Auto) Eos % (Auto) [place] # Seg Neutrophils % Seg Neuts % (Manual) Lymphocytes % (Manual) Seg Neutrophils # Seg Neutrophils # Man Lymphocytes # (Manual) APTT POC ABG pH ABG pH POC ABG pCO2 POC ABG pO2 ABG pO2 ABG HCO3 ABG Base Excess ABG Hemoglobin VBG pH Oxyhemoglobin Sodium Potassium Chloride Carbon Dioxide BUN Creatinine Glucose POC Glucose 195 H 129 H 246 H Lactic Acid Calcium AST ALT Alkaline Phosphatase CK-MB (CK-2) CK-MB (CK-2) Rel Index Total Protein Albumin TSH Urine WBC (Auto) Salicylates 02/08/17 02/09/17 02/09/17 23:51 05:51 07:24 WBC 14.7 H RBC 3.39 L Hgb 8.9 L Hct 26.4 L MCV 78 L MCH 26 L RDW 18.4 H Plt Count 670 H Lymph % (Auto) 11.8 L [place] % (Auto) Eos % (Auto) [place] # Seg Neutrophils % 81.2 H Seg Neuts % (Manual) Lymphocytes % (Manual) Seg Neutrophils # 11.9 H Seg Neutrophils # Man Lymphocytes # (Manual) APTT POC ABG pH ABG pH POC ABG pCO2 POC ABG pO2 ABG pO2 ABG HCO3 ABG Base Excess ABG Hemoglobin VBG pH Oxyhemoglobin Sodium Potassium Chloride Carbon Dioxide BUN Creatinine Glucose POC Glucose 262 H 295 H Lactic Acid Calcium AST ALT Alkaline Phosphatase CK-MB (CK-2) CK-MB (CK-2) Rel Index Total Protein Albumin TSH Urine WBC (Auto) Salicylates 02/09/17 02/09/17 02/09/17 07:24 12:08 18:39 WBC RBC Hgb Hct MCV MCH RDW Plt Count Lymph % (Auto) [place] % (Auto) Eos % (Auto) [place] # Seg Neutrophils % Seg Neuts % (Manual) Lymphocytes % (Manual) Seg Neutrophils # Seg Neutrophils # Man Lymphocytes # (Manual) APTT POC ABG pH ABG pH POC ABG pCO2 POC ABG pO2 ABG pO2 ABG HCO3 ABG Base Excess ABG Hemoglobin VBG pH Oxyhemoglobin Sodium Potassium Chloride 95.5 L Carbon Dioxide BUN 52 H Creatinine Glucose 277 H POC Glucose 236 H 151 H Lactic Acid Calcium AST ALT Alkaline Phosphatase CK-MB (CK-2) CK-MB (CK-2) Rel Index Total Protein Albumin TSH Urine WBC (Auto) Salicylates 02/10/17 02/10/17 02/10/17 00:01 05:44 11:21 WBC RBC Hgb Hct MCV MCH RDW Plt Count Lymph % (Auto) [place] % (Auto) Eos % (Auto) [place] # Seg Neutrophils % Seg Neuts % (Manual) Lymphocytes % (Manual) Seg Neutrophils # Seg Neutrophils # Man Lymphocytes # (Manual) APTT POC ABG pH ABG pH POC ABG pCO2 POC ABG pO2 ABG pO2 ABG HCO3 ABG Base Excess ABG Hemoglobin VBG pH Oxyhemoglobin Sodium Potassium Chloride Carbon Dioxide BUN Creatinine Glucose POC Glucose 210 H 201 H 233 H Lactic Acid Calcium AST ALT Alkaline Phosphatase CK-MB (CK-2) CK-MB (CK-2) Rel Index Total Protein Albumin TSH Urine WBC (Auto) Salicylates 02/10/17 02/10/17 02/11/17 17:29 23:56 05:24 WBC RBC Hgb Hct MCV MCH RDW Plt Count Lymph % (Auto) [place] % (Auto) Eos % (Auto) [place] # Seg Neutrophils % Seg Neuts % (Manual) Lymphocytes % (Manual) Seg Neutrophils # Seg Neutrophils # Man Lymphocytes # (Manual) APTT POC ABG pH ABG pH POC ABG pCO2 POC ABG pO2 ABG pO2 ABG HCO3 ABG Base Excess ABG Hemoglobin VBG pH Oxyhemoglobin Sodium Potassium Chloride Carbon Dioxide BUN Creatinine Glucose POC Glucose 167 H 191 H 135 H Lactic Acid Calcium AST ALT Alkaline Phosphatase CK-MB (CK-2) CK-MB (CK-2) Rel Index Total Protein Albumin TSH Urine WBC (Auto) Salicylates 02/11/17 02/11/17 02/11/17 12:25 17:03 23:59 WBC RBC Hgb Hct MCV MCH RDW Plt Count Lymph % (Auto) [place] % (Auto) Eos % (Auto) [place] # Seg Neutrophils % Seg Neuts % (Manual) Lymphocytes % (Manual) Seg Neutrophils # Seg Neutrophils # Man Lymphocytes # (Manual) APTT POC ABG pH ABG pH POC ABG pCO2 POC ABG pO2 ABG pO2 ABG HCO3 ABG Base Excess ABG Hemoglobin VBG pH Oxyhemoglobin Sodium Potassium Chloride Carbon Dioxide BUN Creatinine Glucose POC Glucose 275 H 172 H 215 H Lactic Acid Calcium AST ALT Alkaline Phosphatase CK-MB (CK-2) CK-MB (CK-2) Rel Index Total Protein Albumin TSH Urine WBC (Auto) Salicylates 02/12/17 02/12/17 02/12/17 05:39 11:33 17:55 WBC RBC Hgb Hct MCV MCH RDW Plt Count Lymph % (Auto) [place] % (Auto) Eos % (Auto) [place] # Seg Neutrophils % Seg Neuts % (Manual) Lymphocytes % (Manual) Seg Neutrophils # Seg Neutrophils # Man Lymphocytes # (Manual) APTT POC ABG pH ABG pH POC ABG pCO2 POC ABG pO2 ABG pO2 ABG HCO3 ABG Base Excess ABG Hemoglobin VBG pH Oxyhemoglobin Sodium Potassium Chloride Carbon Dioxide BUN Creatinine Glucose POC Glucose 261 H 217 H 172 H Lactic Acid Calcium AST ALT Alkaline Phosphatase CK-MB (CK-2) CK-MB (CK-2) Rel Index Total Protein Albumin TSH Urine WBC (Auto) Salicylates 02/13/17 02/13/17 02/13/17 00:25 06:46 11:26 WBC RBC Hgb Hct MCV MCH RDW Plt Count Lymph % (Auto) [place] % (Auto) Eos % (Auto) [place] # Seg Neutrophils % Seg Neuts % (Manual) Lymphocytes % (Manual) Seg Neutrophils # Seg Neutrophils # Man Lymphocytes # (Manual) APTT POC ABG pH ABG pH POC ABG pCO2 POC ABG pO2 ABG pO2 ABG HCO3 ABG Base Excess ABG Hemoglobin VBG pH Oxyhemoglobin Sodium Potassium Chloride Carbon Dioxide BUN Creatinine Glucose POC Glucose 207 H 219 H 231 H Lactic Acid Calcium AST ALT Alkaline Phosphatase CK-MB (CK-2) CK-MB (CK-2) Rel Index Total Protein Albumin TSH Urine WBC (Auto) Salicylates 02/13/17 02/13/17 02/14/17 17:12 23:44 05:44 WBC RBC Hgb Hct MCV MCH RDW Plt Count Lymph % (Auto) [place] % (Auto) Eos % (Auto) [place] # Seg Neutrophils % Seg Neuts % (Manual) Lymphocytes % (Manual) Seg Neutrophils # Seg Neutrophils # Man Lymphocytes # (Manual) APTT POC ABG pH ABG pH POC ABG pCO2 POC ABG pO2 ABG pO2 ABG HCO3 ABG Base Excess ABG Hemoglobin VBG pH Oxyhemoglobin Sodium Potassium Chloride Carbon Dioxide BUN Creatinine Glucose POC Glucose 190 H 256 H 184 H Lactic Acid Calcium AST ALT Alkaline Phosphatase CK-MB (CK-2) CK-MB (CK-2) Rel Index Total Protein Albumin TSH Urine WBC (Auto) Salicylates 02/14/17 02/14/17 02/14/17 12:21 17:57 23:18 WBC RBC Hgb Hct MCV MCH RDW Plt Count Lymph % (Auto) [place] % (Auto) Eos % (Auto) [place] # Seg Neutrophils % Seg Neuts % (Manual) Lymphocytes % (Manual) Seg Neutrophils # Seg Neutrophils # Man Lymphocytes # (Manual) APTT POC ABG pH ABG pH POC ABG pCO2 POC ABG pO2 ABG pO2 ABG HCO3 ABG Base Excess ABG Hemoglobin VBG pH Oxyhemoglobin Sodium Potassium Chloride Carbon Dioxide BUN Creatinine Glucose POC Glucose 233 H 155 H 165 H Lactic Acid Calcium AST ALT Alkaline Phosphatase CK-MB (CK-2) CK-MB (CK-2) Rel Index Total Protein Albumin TSH Urine WBC (Auto) Salicylates 02/15/17 02/15/17 02/15/17 05:33 11:45 17:20 WBC RBC Hgb Hct MCV MCH RDW Plt Count Lymph % (Auto) [place] % (Auto) Eos % (Auto) [place] # Seg Neutrophils % Seg Neuts % (Manual) Lymphocytes % (Manual) Seg Neutrophils # Seg Neutrophils # Man Lymphocytes # (Manual) APTT POC ABG pH ABG pH POC ABG pCO2 POC ABG pO2 ABG pO2 ABG HCO3 ABG Base Excess ABG Hemoglobin VBG pH Oxyhemoglobin Sodium Potassium Chloride Carbon Dioxide BUN Creatinine Glucose POC Glucose 239 H 130 H 189 H Lactic Acid Calcium AST ALT Alkaline Phosphatase CK-MB (CK-2) CK-MB (CK-2) Rel Index Total Protein Albumin TSH Urine WBC (Auto) Salicylates 02/16/17 02/16/17 02/16/17 00:14 05:09 12:31 WBC RBC Hgb Hct MCV MCH RDW Plt Count Lymph % (Auto) [place] % (Auto) Eos % (Auto) [place] # Seg Neutrophils % Seg Neuts % (Manual) Lymphocytes % (Manual) Seg Neutrophils # Seg Neutrophils # Man Lymphocytes # (Manual) APTT POC ABG pH ABG pH POC ABG pCO2 POC ABG pO2 ABG pO2 ABG HCO3 ABG Base Excess ABG Hemoglobin VBG pH Oxyhemoglobin Sodium Potassium Chloride Carbon Dioxide BUN Creatinine Glucose POC Glucose 197 H 226 H 178 H Lactic Acid Calcium AST ALT Alkaline Phosphatase CK-MB (CK-2) CK-MB (CK-2) Rel Index Total Protein Albumin TSH Urine WBC (Auto) Salicylates 02/16/17 02/16/17 02/17/17 16:35 23:49 05:37 WBC RBC Hgb Hct MCV MCH RDW Plt Count Lymph % (Auto) [place] % (Auto) Eos % (Auto) [place] # Seg Neutrophils % Seg Neuts % (Manual) Lymphocytes % (Manual) Seg Neutrophils # Seg Neutrophils # Man Lymphocytes # (Manual) APTT POC ABG pH ABG pH POC ABG pCO2 POC ABG pO2 ABG pO2 ABG HCO3 ABG Base Excess ABG Hemoglobin VBG pH Oxyhemoglobin Sodium Potassium Chloride Carbon Dioxide BUN Creatinine Glucose POC Glucose 174 H 62 L 153 H Lactic Acid Calcium AST ALT Alkaline Phosphatase CK-MB (CK-2) CK-MB (CK-2) Rel Index Total Protein Albumin TSH Urine WBC (Auto) Salicylates 02/17/17 02/17/17 02/17/17 11:39 17:02 22:24 WBC RBC Hgb Hct MCV MCH RDW Plt Count Lymph % (Auto) [place] % (Auto) Eos % (Auto) [place] # Seg Neutrophils % Seg Neuts % (Manual) Lymphocytes % (Manual) Seg Neutrophils # Seg Neutrophils # Man Lymphocytes # (Manual) APTT POC ABG pH ABG pH POC ABG pCO2 POC ABG pO2 ABG pO2 ABG HCO3 ABG Base Excess ABG Hemoglobin VBG pH Oxyhemoglobin Sodium Potassium Chloride Carbon Dioxide BUN Creatinine Glucose POC Glucose 231 H 112 H 116 H Lactic Acid Calcium AST ALT Alkaline Phosphatase CK-MB (CK-2) CK-MB (CK-2) Rel Index Total Protein Albumin TSH Urine WBC (Auto) Salicylates 02/18/17 02/19/17 02/19/17 15:34 05:09 07:57 WBC RBC Hgb Hct MCV MCH RDW Plt Count Lymph % (Auto) [place] % (Auto) Eos % (Auto) [place] # Seg Neutrophils % Seg Neuts % (Manual) Lymphocytes % (Manual) Seg Neutrophils # Seg Neutrophils # Man Lymphocytes # (Manual) APTT POC ABG pH ABG pH POC ABG pCO2 POC ABG pO2 ABG pO2 ABG HCO3 ABG Base Excess ABG Hemoglobin VBG pH Oxyhemoglobin Sodium Potassium Chloride Carbon Dioxide BUN Creatinine Glucose POC Glucose 215 H 218 H 283 H Lactic Acid Calcium AST ALT Alkaline Phosphatase CK-MB (CK-2) CK-MB (CK-2) Rel Index Total Protein Albumin TSH Urine WBC (Auto) Salicylates 02/19/17 02/19/17 02/20/17 14:49 22:10 05:10 WBC RBC Hgb Hct MCV MCH RDW Plt Count Lymph % (Auto) [place] % (Auto) Eos % (Auto) [place] # Seg Neutrophils % Seg Neuts % (Manual) Lymphocytes % (Manual) Seg Neutrophils # Seg Neutrophils # Man Lymphocytes # (Manual) APTT POC ABG pH ABG pH POC ABG pCO2 POC ABG pO2 ABG pO2 ABG HCO3 ABG Base Excess ABG Hemoglobin VBG pH Oxyhemoglobin Sodium Potassium Chloride Carbon Dioxide BUN Creatinine Glucose POC Glucose 290 H 169 H 209 H Lactic Acid Calcium AST ALT Alkaline Phosphatase CK-MB (CK-2) CK-MB (CK-2) Rel Index Total Protein Albumin TSH Urine WBC (Auto) Salicylates 02/20/17 02/20/17 02/21/17 15:05 21:52 02:00 WBC RBC Hgb Hct MCV MCH RDW Plt Count Lymph % (Auto) [place] % (Auto) Eos % (Auto) [place] # Seg Neutrophils % Seg Neuts % (Manual) Lymphocytes % (Manual) Seg Neutrophils # Seg Neutrophils # Man Lymphocytes # (Manual) APTT POC ABG pH ABG pH POC ABG pCO2 POC ABG pO2 ABG pO2 ABG HCO3 ABG Base Excess ABG Hemoglobin VBG pH Oxyhemoglobin Sodium Potassium Chloride Carbon Dioxide BUN Creatinine Glucose POC Glucose 172 H 209 H 216 H Lactic Acid Calcium AST ALT Alkaline Phosphatase CK-MB (CK-2) CK-MB (CK-2) Rel Index Total Protein Albumin TSH Urine WBC (Auto) Salicylates 02/21/17 02/21/17 02/21/17 04:54 14:43 17:47 WBC RBC Hgb Hct MCV MCH RDW Plt Count Lymph % (Auto) [place] % (Auto) Eos % (Auto) [place] # Seg Neutrophils % Seg Neuts % (Manual) Lymphocytes % (Manual) Seg Neutrophils # Seg Neutrophils # Man Lymphocytes # (Manual) APTT POC ABG pH ABG pH POC ABG pCO2 POC ABG pO2 ABG pO2 ABG HCO3 ABG Base Excess ABG Hemoglobin VBG pH Oxyhemoglobin Sodium Potassium Chloride Carbon Dioxide BUN Creatinine Glucose POC Glucose 227 H 290 H 220 H Lactic Acid Calcium AST ALT Alkaline Phosphatase CK-MB (CK-2) CK-MB (CK-2) Rel Index Total Protein Albumin TSH Urine WBC (Auto) Salicylates 02/21/17 02/22/17 02/22/17 22:02 04:52 15:25 WBC RBC Hgb Hct MCV MCH RDW Plt Count Lymph % (Auto) [place] % (Auto) Eos % (Auto) [place] # Seg Neutrophils % Seg Neuts % (Manual) Lymphocytes % (Manual) Seg Neutrophils # Seg Neutrophils # Man Lymphocytes # (Manual) APTT POC ABG pH ABG pH POC ABG pCO2 POC ABG pO2 ABG pO2 ABG HCO3 ABG Base Excess ABG Hemoglobin VBG pH Oxyhemoglobin Sodium Potassium Chloride Carbon Dioxide BUN Creatinine Glucose POC Glucose 246 H 212 H 236 H Lactic Acid Calcium AST ALT Alkaline Phosphatase CK-MB (CK-2) CK-MB (CK-2) Rel Index Total Protein Albumin TSH Urine WBC (Auto) Salicylates 02/22/17 02/23/17 02/23/17 21:33 06:04 10:00 WBC RBC Hgb Hct MCV MCH RDW Plt Count Lymph % (Auto) [place] % (Auto) Eos % (Auto) [place] # Seg Neutrophils % Seg Neuts % (Manual) Lymphocytes % (Manual) Seg Neutrophils # Seg Neutrophils # Man Lymphocytes # (Manual) APTT POC ABG pH ABG pH POC ABG pCO2 POC ABG pO2 ABG pO2 ABG HCO3 ABG Base Excess ABG Hemoglobin VBG pH Oxyhemoglobin Sodium Potassium Chloride Carbon Dioxide BUN Creatinine Glucose POC Glucose 255 H 208 H 174 H Lactic Acid Calcium AST ALT Alkaline Phosphatase CK-MB (CK-2) CK-MB (CK-2) Rel Index Total Protein Albumin TSH Urine WBC (Auto) Salicylates 02/23/17 02/23/17 02/23/17 12:52 17:15 21:51 WBC RBC Hgb Hct MCV MCH RDW Plt Count Lymph % (Auto) [place] % (Auto) Eos % (Auto) [place] # Seg Neutrophils % Seg Neuts % (Manual) Lymphocytes % (Manual) Seg Neutrophils # Seg Neutrophils # Man Lymphocytes # (Manual) APTT POC ABG pH ABG pH POC ABG pCO2 POC ABG pO2 ABG pO2 ABG HCO3 ABG Base Excess ABG Hemoglobin VBG pH Oxyhemoglobin Sodium Potassium Chloride Carbon Dioxide BUN Creatinine Glucose POC Glucose 203 H 269 H 205 H Lactic Acid Calcium AST ALT Alkaline Phosphatase CK-MB (CK-2) CK-MB (CK-2) Rel Index Total Protein Albumin TSH Urine WBC (Auto) Salicylates 02/24/17 02/24/17 02/24/17 10:23 17:45 21:24 WBC RBC Hgb Hct MCV MCH RDW Plt Count Lymph % (Auto) [place] % (Auto) Eos % (Auto) [place] # Seg Neutrophils % Seg Neuts % (Manual) Lymphocytes % (Manual) Seg Neutrophils # Seg Neutrophils # Man Lymphocytes # (Manual) APTT POC ABG pH ABG pH POC ABG pCO2 POC ABG pO2 ABG pO2 ABG HCO3 ABG Base Excess ABG Hemoglobin VBG pH Oxyhemoglobin Sodium Potassium Chloride Carbon Dioxide BUN Creatinine Glucose POC Glucose 280 H 239 H 254 H Lactic Acid Calcium AST ALT Alkaline Phosphatase CK-MB (CK-2) CK-MB (CK-2) Rel Index Total Protein Albumin TSH Urine WBC (Auto) Salicylates 02/25/17 02/25/17 02/25/17 02:12 05:17 14:32 WBC RBC Hgb Hct MCV MCH RDW Plt Count Lymph % (Auto) [place] % (Auto) Eos % (Auto) [place] # Seg Neutrophils % Seg Neuts % (Manual) Lymphocytes % (Manual) Seg Neutrophils # Seg Neutrophils # Man Lymphocytes # (Manual) APTT POC ABG pH ABG pH POC ABG pCO2 POC ABG pO2 ABG pO2 ABG HCO3 ABG Base Excess ABG Hemoglobin VBG pH Oxyhemoglobin Sodium Potassium Chloride Carbon Dioxide BUN Creatinine Glucose POC Glucose 296 H 332 H 353 H Lactic Acid Calcium AST ALT Alkaline Phosphatase CK-MB (CK-2) CK-MB (CK-2) Rel Index Total Protein Albumin TSH Urine WBC (Auto) Salicylates 11/02/26/17 02/26/17 22:14 00:37 05:52 WBC RBC Hgb Hct MCV MCH RDW Plt Count Lymph % (Auto) [place] % (Auto) Eos % (Auto) [place] # Seg Neutrophils % Seg Neuts % (Manual) Lymphocytes % (Manual) Seg Neutrophils # Seg Neutrophils # Man Lymphocytes # (Manual) APTT POC ABG pH ABG pH POC ABG pCO2 POC ABG pO2 ABG pO2 ABG HCO3 ABG Base Excess ABG Hemoglobin VBG pH Oxyhemoglobin Sodium Potassium Chloride Carbon Dioxide BUN Creatinine Glucose POC Glucose 201 H 233 H 269 H Lactic Acid Calcium AST ALT Alkaline Phosphatase CK-MB (CK-2) CK-MB (CK-2) Rel Index Total Protein Albumin TSH Urine WBC (Auto) Salicylates 02/26/17 02/26/17 02/26/17 11:48 13:49 21:26 WBC RBC Hgb Hct MCV MCH RDW Plt Count Lymph % (Auto) [place] % (Auto) Eos % (Auto) [place] # Seg Neutrophils % Seg Neuts % (Manual) Lymphocytes % (Manual) Seg Neutrophils # Seg Neutrophils # Man Lymphocytes # (Manual) APTT POC ABG pH ABG pH POC ABG pCO2 POC ABG pO2 ABG pO2 ABG HCO3 ABG Base Excess ABG Hemoglobin VBG pH Oxyhemoglobin Sodium Potassium Chloride Carbon Dioxide BUN Creatinine Glucose POC Glucose 333 H 322 H 244 H Lactic Acid Calcium AST ALT Alkaline Phosphatase CK-MB (CK-2) CK-MB (CK-2) Rel Index Total Protein Albumin TSH Urine WBC (Auto) Salicylates 02/27/17 02/27/17 02/27/17 05:27 13:51 21:48 WBC RBC Hgb Hct MCV MCH RDW Plt Count Lymph % (Auto) [place] % (Auto) Eos % (Auto) [place] # Seg Neutrophils % Seg Neuts % (Manual) Lymphocytes % (Manual) Seg Neutrophils # Seg Neutrophils # Man Lymphocytes # (Manual) APTT POC ABG pH ABG pH POC ABG pCO2 POC ABG pO2 ABG pO2 ABG HCO3 ABG Base Excess ABG Hemoglobin VBG pH Oxyhemoglobin Sodium Potassium Chloride Carbon Dioxide BUN Creatinine Glucose POC Glucose 217 H 239 H 254 H Lactic Acid Calcium AST ALT Alkaline Phosphatase CK-MB (CK-2) CK-MB (CK-2) Rel Index Total Protein Albumin TSH Urine WBC (Auto) Salicylates 02/28/17 02/28/17 02/28/17 05:38 11:00 19:44 WBC RBC Hgb Hct MCV MCH RDW Plt Count Lymph % (Auto) [place] % (Auto) Eos % (Auto) [place] # Seg Neutrophils % Seg Neuts % (Manual) Lymphocytes % (Manual) Seg Neutrophils # Seg Neutrophils # Man Lymphocytes # (Manual) APTT POC ABG pH ABG pH POC ABG pCO2 POC ABG pO2 ABG pO2 ABG HCO3 ABG Base Excess ABG Hemoglobin VBG pH Oxyhemoglobin Sodium Potassium Chloride Carbon Dioxide BUN Creatinine Glucose POC Glucose 325 H 203 H 116 H Lactic Acid Calcium AST ALT Alkaline Phosphatase CK-MB (CK-2) CK-MB (CK-2) Rel Index Total Protein Albumin TSH Urine WBC (Auto) Salicylates 03/01/17 03/01/17 03/01/17 00:08 05:31 12:17 WBC RBC Hgb Hct MCV MCH RDW Plt Count Lymph % (Auto) [place] % (Auto) Eos % (Auto) [place] # Seg Neutrophils % Seg Neuts % (Manual) Lymphocytes % (Manual) Seg Neutrophils # Seg Neutrophils # Man Lymphocytes # (Manual) APTT POC ABG pH ABG pH POC ABG pCO2 POC ABG pO2 ABG pO2 ABG HCO3 ABG Base Excess ABG Hemoglobin VBG pH Oxyhemoglobin Sodium Potassium Chloride Carbon Dioxide BUN Creatinine Glucose POC Glucose 202 H 183 H 184 H Lactic Acid Calcium AST ALT Alkaline Phosphatase CK-MB (CK-2) CK-MB (CK-2) Rel Index Total Protein Albumin TSH Urine WBC (Auto) Salicylates 03/02/17 03/02/17 03/02/17 00:12 05:58 18:22 WBC RBC Hgb Hct MCV MCH RDW Plt Count Lymph % (Auto) [place] % (Auto) Eos % (Auto) [place] # Seg Neutrophils % Seg Neuts % (Manual) Lymphocytes % (Manual) Seg Neutrophils # Seg Neutrophils # Man Lymphocytes # (Manual) APTT POC ABG pH ABG pH POC ABG pCO2 POC ABG pO2 ABG pO2 ABG HCO3 ABG Base Excess ABG Hemoglobin VBG pH Oxyhemoglobin Sodium Potassium Chloride Carbon Dioxide BUN Creatinine Glucose POC Glucose 117 H 176 H 156 H Lactic Acid Calcium AST ALT Alkaline Phosphatase CK-MB (CK-2) CK-MB (CK-2) Rel Index Total Protein Albumin TSH Urine WBC (Auto) Salicylates 03/02/17 03/03/17 03/03/17 23:51 05:44 11:32 WBC RBC Hgb Hct MCV MCH RDW Plt Count Lymph % (Auto) [place] % (Auto) Eos % (Auto) [place] # Seg Neutrophils % Seg Neuts % (Manual) Lymphocytes % (Manual) Seg Neutrophils # Seg Neutrophils # Man Lymphocytes # (Manual) APTT POC ABG pH ABG pH POC ABG pCO2 POC ABG pO2 ABG pO2 ABG HCO3 ABG Base Excess ABG Hemoglobin VBG pH Oxyhemoglobin Sodium Potassium Chloride Carbon Dioxide BUN Creatinine Glucose POC Glucose 211 H 117 H 133 H Lactic Acid Calcium AST ALT Alkaline Phosphatase CK-MB (CK-2) CK-MB (CK-2) Rel Index Total Protein Albumin TSH Urine WBC (Auto) Salicylates 03/03/17 03/03/17 03/04/17 17:43 23:17 05:30 WBC RBC Hgb Hct MCV MCH RDW Plt Count Lymph % (Auto) [place] % (Auto) Eos % (Auto) [place] # Seg Neutrophils % Seg Neuts % (Manual) Lymphocytes % (Manual) Seg Neutrophils # Seg Neutrophils # Man Lymphocytes # (Manual) APTT POC ABG pH ABG pH POC ABG pCO2 POC ABG pO2 ABG pO2 ABG HCO3 ABG Base Excess ABG Hemoglobin VBG pH Oxyhemoglobin Sodium Potassium Chloride Carbon Dioxide BUN Creatinine Glucose POC Glucose 206 H 170 H 126 H Lactic Acid Calcium AST ALT Alkaline Phosphatase CK-MB (CK-2) CK-MB (CK-2) Rel Index Total Protein Albumin TSH Urine WBC (Auto) Salicylates 03/04/17 03/04/17 03/05/17 12:17 17:27 05:20 WBC RBC Hgb Hct MCV MCH RDW Plt Count Lymph % (Auto) [place] % (Auto) Eos % (Auto) [place] # Seg Neutrophils % Seg Neuts % (Manual) Lymphocytes % (Manual) Seg Neutrophils # Seg Neutrophils # Man Lymphocytes # (Manual) APTT POC ABG pH ABG pH POC ABG pCO2 POC ABG pO2 ABG pO2 ABG HCO3 ABG Base Excess ABG Hemoglobin VBG pH Oxyhemoglobin Sodium Potassium Chloride Carbon Dioxide BUN Creatinine Glucose POC Glucose 135 H 121 H 185 H Lactic Acid Calcium AST ALT Alkaline Phosphatase CK-MB (CK-2) CK-MB (CK-2) Rel Index Total Protein Albumin TSH Urine WBC (Auto) Salicylates 03/05/17 03/06/17 03/06/17 11:50 11:52 17:34 WBC RBC Hgb Hct MCV MCH RDW Plt Count Lymph % (Auto) [place] % (Auto) Eos % (Auto) [place] # Seg Neutrophils % Seg Neuts % (Manual) Lymphocytes % (Manual) Seg Neutrophils # Seg Neutrophils # Man Lymphocytes # (Manual) APTT POC ABG pH ABG pH POC ABG pCO2 POC ABG pO2 ABG pO2 ABG HCO3 ABG Base Excess ABG Hemoglobin VBG pH Oxyhemoglobin Sodium Potassium Chloride Carbon Dioxide BUN Creatinine Glucose POC Glucose 116 H 133 H 181 H Lactic Acid Calcium AST ALT Alkaline Phosphatase CK-MB (CK-2) CK-MB (CK-2) Rel Index Total Protein Albumin TSH Urine WBC (Auto) Salicylates 03/07/17 03/07/17 03/07/17 05:21 11:36 17:49 WBC RBC Hgb Hct MCV MCH RDW Plt Count Lymph % (Auto) [place] % (Auto) Eos % (Auto) [place] # Seg Neutrophils % Seg Neuts % (Manual) Lymphocytes % (Manual) Seg Neutrophils # Seg Neutrophils # Man Lymphocytes # (Manual) APTT POC ABG pH ABG pH POC ABG pCO2 POC ABG pO2 ABG pO2 ABG HCO3 ABG Base Excess ABG Hemoglobin VBG pH Oxyhemoglobin Sodium Potassium Chloride Carbon Dioxide BUN Creatinine Glucose POC Glucose 159 H 137 H 158 H Lactic Acid Calcium AST ALT Alkaline Phosphatase CK-MB (CK-2) CK-MB (CK-2) Rel Index Total Protein Albumin TSH Urine WBC (Auto) Salicylates 03/08/17 03/08/17 03/08/17 05:51 13:58 23:50 WBC RBC Hgb Hct MCV MCH RDW Plt Count Lymph % (Auto) [place] % (Auto) Eos % (Auto) [place] # Seg Neutrophils % Seg Neuts % (Manual) Lymphocytes % (Manual) Seg Neutrophils # Seg Neutrophils # Man Lymphocytes # (Manual) APTT POC ABG pH ABG pH POC ABG pCO2 POC ABG pO2 ABG pO2 ABG HCO3 ABG Base Excess ABG Hemoglobin VBG pH Oxyhemoglobin Sodium Potassium Chloride Carbon Dioxide BUN Creatinine Glucose POC Glucose 122 H 182 H 114 H Lactic Acid Calcium AST ALT Alkaline Phosphatase CK-MB (CK-2) CK-MB (CK-2) Rel Index Total Protein Albumin TSH Urine WBC (Auto) Salicylates 03/09/17 03/09/17 03/09/17 05:21 05:51 05:51 WBC RBC 3.61 L Hgb 9.5 L Hct 28.3 L MCV 79 L MCH 26 L RDW 17.8 H Plt Count Lymph % (Auto) [place] % (Auto) Eos % (Auto) [place] # Seg Neutrophils % Seg Neuts % (Manual) Lymphocytes % (Manual) Seg Neutrophils # Seg Neutrophils # Man Lymphocytes # (Manual) APTT POC ABG pH ABG pH POC ABG pCO2 POC ABG pO2 ABG pO2 ABG HCO3 ABG Base Excess ABG Hemoglobin VBG pH Oxyhemoglobin Sodium 134 L Potassium Chloride 95.5 L Carbon Dioxide BUN 33 H Creatinine 0.5 L Glucose 143 H POC Glucose 153 H Lactic Acid Calcium AST ALT Alkaline Phosphatase CK-MB (CK-2) CK-MB (CK-2) Rel Index Total Protein Albumin TSH Urine WBC (Auto) Salicylates 03/09/17 03/09/17 03/09/17 12:10 18:13 21:00 WBC RBC Hgb Hct MCV MCH RDW Plt Count Lymph % (Auto) [place] % (Auto) Eos % (Auto) [place] # Seg Neutrophils % Seg Neuts % (Manual) Lymphocytes % (Manual) Seg Neutrophils # Seg Neutrophils # Man Lymphocytes # (Manual) APTT POC ABG pH ABG pH POC ABG pCO2 POC ABG pO2 ABG pO2 ABG HCO3 ABG Base Excess ABG Hemoglobin VBG pH Oxyhemoglobin Sodium Potassium Chloride Carbon Dioxide BUN Creatinine Glucose POC Glucose 203 H 221 H 198 H Lactic Acid Calcium AST ALT Alkaline Phosphatase CK-MB (CK-2) CK-MB (CK-2) Rel Index Total Protein Albumin TSH Urine WBC (Auto) Salicylates 03/09/17 03/10/17 03/10/17 23:58 05:09 05:09 WBC RBC Hgb 10.3 L Hct 30.5 L MCV 78 L MCH 26 L RDW 17.9 H Plt Count Lymph % (Auto) [place] % (Auto) 10.0 H Eos % (Auto) 6.0 H [place] # Seg Neutrophils % Seg Neuts % (Manual) Lymphocytes % (Manual) Seg Neutrophils # Seg Neutrophils # Man Lymphocytes # (Manual) APTT POC ABG pH ABG pH POC ABG pCO2 POC ABG pO2 ABG pO2 ABG HCO3 ABG Base Excess ABG Hemoglobin VBG pH Oxyhemoglobin Sodium 132 L Potassium Chloride 92.2 L Carbon Dioxide BUN 33 H Creatinine 0.5 L Glucose 50 L POC Glucose 167 H Lactic Acid Calcium AST ALT Alkaline Phosphatase CK-MB (CK-2) CK-MB (CK-2) Rel Index Total Protein Albumin TSH Urine WBC (Auto) Salicylates 03/10/17 03/10/17 03/10/17 05:33 05:34 11:48 WBC RBC Hgb Hct MCV MCH RDW Plt Count Lymph % (Auto) [place] % (Auto) Eos % (Auto) [place] # Seg Neutrophils % Seg Neuts % (Manual) Lymphocytes % (Manual) Seg Neutrophils # Seg Neutrophils # Man Lymphocytes # (Manual) APTT POC ABG pH ABG pH POC ABG pCO2 POC ABG pO2 ABG pO2 ABG HCO3 ABG Base Excess ABG Hemoglobin VBG pH Oxyhemoglobin Sodium Potassium Chloride Carbon Dioxide BUN Creatinine Glucose POC Glucose 52 L 53 L 148 H Lactic Acid Calcium AST ALT Alkaline Phosphatase CK-MB (CK-2) CK-MB (CK-2) Rel Index Total Protein Albumin TSH Urine WBC (Auto) Salicylates 03/10/17 03/10/17 03/11/17 17:53 23:47 05:18 WBC RBC Hgb Hct MCV MCH RDW Plt Count Lymph % (Auto) [place] % (Auto) Eos % (Auto) [place] # Seg Neutrophils % Seg Neuts % (Manual) Lymphocytes % (Manual) Seg Neutrophils # Seg Neutrophils # Man Lymphocytes # (Manual) APTT POC ABG pH ABG pH POC ABG pCO2 POC ABG pO2 ABG pO2 ABG HCO3 ABG Base Excess ABG Hemoglobin VBG pH Oxyhemoglobin Sodium Potassium Chloride Carbon Dioxide BUN Creatinine Glucose POC Glucose 189 H 398 H 126 H Lactic Acid Calcium AST ALT Alkaline Phosphatase CK-MB (CK-2) CK-MB (CK-2) Rel Index Total Protein Albumin TSH Urine WBC (Auto) Salicylates 03/11/17 03/11/17 03/11/17 11:53 17:30 23:10 WBC RBC Hgb Hct MCV MCH RDW Plt Count Lymph % (Auto) [place] % (Auto) Eos % (Auto) [place] # Seg Neutrophils % Seg Neuts % (Manual) Lymphocytes % (Manual) Seg Neutrophils # Seg Neutrophils # Man Lymphocytes # (Manual) APTT POC ABG pH ABG pH POC ABG pCO2 POC ABG pO2 ABG pO2 ABG HCO3 ABG Base Excess ABG Hemoglobin VBG pH Oxyhemoglobin Sodium Potassium Chloride Carbon Dioxide BUN Creatinine Glucose POC Glucose 198 H 142 H 244 H Lactic Acid Calcium AST ALT Alkaline Phosphatase CK-MB (CK-2) CK-MB (CK-2) Rel Index Total Protein Albumin TSH Urine WBC (Auto) Salicylates 03/12/17 03/12/17 03/12/17 04:36 11:49 17:23 WBC RBC Hgb Hct MCV MCH RDW Plt Count Lymph % (Auto) [place] % (Auto) Eos % (Auto) [place] # Seg Neutrophils % Seg Neuts % (Manual) Lymphocytes % (Manual) Seg Neutrophils # Seg Neutrophils # Man Lymphocytes # (Manual) APTT POC ABG pH ABG pH POC ABG pCO2 POC ABG pO2 ABG pO2 ABG HCO3 ABG Base Excess ABG Hemoglobin VBG pH Oxyhemoglobin Sodium Potassium Chloride Carbon Dioxide BUN Creatinine Glucose POC Glucose 205 H 197 H 209 H Lactic Acid Calcium AST ALT Alkaline Phosphatase CK-MB (CK-2) CK-MB (CK-2) Rel Index Total Protein Albumin TSH Urine WBC (Auto) Salicylates 03/12/17 03/13/17 03/13/17 23:51 05:32 11:43 WBC RBC Hgb Hct MCV MCH RDW Plt Count Lymph % (Auto) [place] % (Auto) Eos % (Auto) [place] # Seg Neutrophils % Seg Neuts % (Manual) Lymphocytes % (Manual) Seg Neutrophils # Seg Neutrophils # Man Lymphocytes # (Manual) APTT POC ABG pH ABG pH POC ABG pCO2 POC ABG pO2 ABG pO2 ABG HCO3 ABG Base Excess ABG Hemoglobin VBG pH Oxyhemoglobin Sodium Potassium Chloride Carbon Dioxide BUN Creatinine Glucose POC Glucose 210 H 154 H 164 H Lactic Acid Calcium AST ALT Alkaline Phosphatase CK-MB (CK-2) CK-MB (CK-2) Rel Index Total Protein Albumin TSH Urine WBC (Auto) Salicylates 03/13/17 03/13/17 03/14/17 17:11 23:26 05:42 WBC RBC Hgb Hct MCV MCH RDW Plt Count Lymph % (Auto) [place] % (Auto) Eos % (Auto) [place] # Seg Neutrophils % Seg Neuts % (Manual) Lymphocytes % (Manual) Seg Neutrophils # Seg Neutrophils # Man Lymphocytes # (Manual) APTT POC ABG pH ABG pH POC ABG pCO2 POC ABG pO2 ABG pO2 ABG HCO3 ABG Base Excess ABG Hemoglobin VBG pH Oxyhemoglobin Sodium Potassium Chloride Carbon Dioxide BUN Creatinine Glucose POC Glucose 195 H 240 H 230 H Lactic Acid Calcium AST ALT Alkaline Phosphatase CK-MB (CK-2) CK-MB (CK-2) Rel Index Total Protein Albumin TSH Urine WBC (Auto) Salicylates 03/14/17 03/14/17 03/14/17 14:04 17:34 23:42 WBC RBC Hgb Hct MCV MCH RDW Plt Count Lymph % (Auto) [place] % (Auto) Eos % (Auto) [place] # Seg Neutrophils % Seg Neuts % (Manual) Lymphocytes % (Manual) Seg Neutrophils # Seg Neutrophils # Man Lymphocytes # (Manual) APTT POC ABG pH ABG pH POC ABG pCO2 POC ABG pO2 ABG pO2 ABG HCO3 ABG Base Excess ABG Hemoglobin VBG pH Oxyhemoglobin Sodium Potassium Chloride Carbon Dioxide BUN Creatinine Glucose POC Glucose 227 H 186 H 225 H Lactic Acid Calcium AST ALT Alkaline Phosphatase CK-MB (CK-2) CK-MB (CK-2) Rel Index Total Protein Albumin TSH Urine WBC (Auto) Salicylates 03/15/17 03/15/17 03/15/17 05:21 17:13 21:37 WBC RBC Hgb Hct MCV MCH RDW Plt Count Lymph % (Auto) [place] % (Auto) Eos % (Auto) [place] # Seg Neutrophils % Seg Neuts % (Manual) Lymphocytes % (Manual) Seg Neutrophils # Seg Neutrophils # Man Lymphocytes # (Manual) APTT POC ABG pH ABG pH POC ABG pCO2 POC ABG pO2 ABG pO2 ABG HCO3 ABG Base Excess ABG Hemoglobin VBG pH Oxyhemoglobin Sodium Potassium Chloride Carbon Dioxide BUN Creatinine Glucose POC Glucose 244 H 203 H 216 H Lactic Acid Calcium AST ALT Alkaline Phosphatase CK-MB (CK-2) CK-MB (CK-2) Rel Index Total Protein Albumin TSH Urine WBC (Auto) Salicylates 03/16/17 03/16/17 03/16/17 05:52 18:07 21:54 WBC RBC Hgb Hct MCV MCH RDW Plt Count Lymph % (Auto) [place] % (Auto) Eos % (Auto) [place] # Seg Neutrophils % Seg Neuts % (Manual) Lymphocytes % (Manual) Seg Neutrophils # Seg Neutrophils # Man Lymphocytes # (Manual) APTT POC ABG pH ABG pH POC ABG pCO2 POC ABG pO2 ABG pO2 ABG HCO3 ABG Base Excess ABG Hemoglobin VBG pH Oxyhemoglobin Sodium Potassium Chloride Carbon Dioxide BUN Creatinine Glucose POC Glucose 248 H 254 H 244 H Lactic Acid Calcium AST ALT Alkaline Phosphatase CK-MB (CK-2) CK-MB (CK-2) Rel Index Total Protein Albumin TSH Urine WBC (Auto) Salicylates 03/17/17 03/17/17 03/17/17 07:07 07:42 07:43 WBC RBC Hgb 9.7 L Hct 29.1 L MCV 78 L MCH 26 L RDW 17.4 H Plt Count Lymph % (Auto) [place] % (Auto) Eos % (Auto) [place] # Seg Neutrophils % Seg Neuts % (Manual) Lymphocytes % (Manual) Seg Neutrophils # Seg Neutrophils # Man Lymphocytes # (Manual) APTT POC ABG pH ABG pH POC ABG pCO2 POC ABG pO2 ABG pO2 ABG HCO3 ABG Base Excess ABG Hemoglobin VBG pH Oxyhemoglobin Sodium Potassium Chloride 96.6 L Carbon Dioxide BUN 30 H Creatinine 0.5 L Glucose 251 H POC Glucose 222 H Lactic Acid Calcium AST ALT Alkaline Phosphatase CK-MB (CK-2) CK-MB (CK-2) Rel Index Total Protein Albumin TSH Urine WBC (Auto) Salicylates 03/17/17 03/17/17 03/18/17 14:08 21:20 14:24 WBC RBC Hgb Hct MCV MCH RDW Plt Count Lymph % (Auto) [place] % (Auto) Eos % (Auto) [place] # Seg Neutrophils % Seg Neuts % (Manual) Lymphocytes % (Manual) Seg Neutrophils # Seg Neutrophils # Man Lymphocytes # (Manual) APTT POC ABG pH ABG pH POC ABG pCO2 POC ABG pO2 ABG pO2 ABG HCO3 ABG Base Excess ABG Hemoglobin VBG pH Oxyhemoglobin Sodium Potassium Chloride Carbon Dioxide BUN Creatinine Glucose POC Glucose 281 H 239 H 195 H Lactic Acid Calcium AST ALT Alkaline Phosphatase CK-MB (CK-2) CK-MB (CK-2) Rel Index Total Protein Albumin TSH Urine WBC (Auto) Salicylates 03/18/17 03/19/17 03/19/17 21:37 04:57 14:23 WBC RBC Hgb Hct MCV MCH RDW Plt Count Lymph % (Auto) [place] % (Auto) Eos % (Auto) [place] # Seg Neutrophils % Seg Neuts % (Manual) Lymphocytes % (Manual) Seg Neutrophils # Seg Neutrophils # Man Lymphocytes # (Manual) APTT POC ABG pH ABG pH POC ABG pCO2 POC ABG pO2 ABG pO2 ABG HCO3 ABG Base Excess ABG Hemoglobin VBG pH Oxyhemoglobin Sodium Potassium Chloride Carbon Dioxide BUN Creatinine Glucose POC Glucose 227 H 205 H 277 H Lactic Acid Calcium AST ALT Alkaline Phosphatase CK-MB (CK-2) CK-MB (CK-2) Rel Index Total Protein Albumin TSH Urine WBC (Auto) Salicylates 03/19/17 03/19/17 03/20/17 20:31 21:47 04:55 WBC RBC Hgb Hct MCV MCH RDW Plt Count Lymph % (Auto) [place] % (Auto) Eos % (Auto) [place] # Seg Neutrophils % Seg Neuts % (Manual) Lymphocytes % (Manual) Seg Neutrophils # Seg Neutrophils # Man Lymphocytes # (Manual) APTT POC ABG pH ABG pH POC ABG pCO2 POC ABG pO2 ABG pO2 ABG HCO3 ABG Base Excess ABG Hemoglobin VBG pH Oxyhemoglobin Sodium Potassium Chloride Carbon Dioxide BUN Creatinine Glucose POC Glucose 256 H 270 H 202 H Lactic Acid Calcium AST ALT Alkaline Phosphatase CK-MB (CK-2) CK-MB (CK-2) Rel Index Total Protein Albumin TSH Urine WBC (Auto) Salicylates 03/20/17 03/20/17 03/21/17 14:09 21:40 05:09 WBC RBC Hgb Hct MCV MCH RDW Plt Count Lymph % (Auto) [place] % (Auto) Eos % (Auto) [place] # Seg Neutrophils % Seg Neuts % (Manual) Lymphocytes % (Manual) Seg Neutrophils # Seg Neutrophils # Man Lymphocytes # (Manual) APTT POC ABG pH ABG pH POC ABG pCO2 POC ABG pO2 ABG pO2 ABG HCO3 ABG Base Excess ABG Hemoglobin VBG pH Oxyhemoglobin Sodium Potassium Chloride Carbon Dioxide BUN Creatinine Glucose POC Glucose 200 H 214 H 233 H Lactic Acid Calcium AST ALT Alkaline Phosphatase CK-MB (CK-2) CK-MB (CK-2) Rel Index Total Protein Albumin TSH Urine WBC (Auto) Salicylates 03/21/17 03/21/17 03/22/17 14:06 21:26 05:43 WBC RBC Hgb Hct MCV MCH RDW Plt Count Lymph % (Auto) [place] % (Auto) Eos % (Auto) [place] # Seg Neutrophils % Seg Neuts % (Manual) Lymphocytes % (Manual) Seg Neutrophils # Seg Neutrophils # Man Lymphocytes # (Manual) APTT POC ABG pH ABG pH POC ABG pCO2 POC ABG pO2 ABG pO2 ABG HCO3 ABG Base Excess ABG Hemoglobin VBG pH Oxyhemoglobin Sodium Potassium Chloride Carbon Dioxide BUN Creatinine Glucose POC Glucose 250 H 155 H 251 H Lactic Acid Calcium AST ALT Alkaline Phosphatase CK-MB (CK-2) CK-MB (CK-2) Rel Index Total Protein Albumin TSH Urine WBC (Auto) Salicylates 03/22/17 03/22/17 03/23/17 13:46 21:16 00:23 WBC RBC Hgb Hct MCV MCH RDW Plt Count Lymph % (Auto) [place] % (Auto) Eos % (Auto) [place] # Seg Neutrophils % Seg Neuts % (Manual) Lymphocytes % (Manual) Seg Neutrophils # Seg Neutrophils # Man Lymphocytes # (Manual) APTT POC ABG pH ABG pH POC ABG pCO2 POC ABG pO2 ABG pO2 ABG HCO3 ABG Base Excess ABG Hemoglobin VBG pH Oxyhemoglobin Sodium Potassium Chloride Carbon Dioxide BUN Creatinine Glucose POC Glucose 269 H 197 H 126 H Lactic Acid Calcium AST ALT Alkaline Phosphatase CK-MB (CK-2) CK-MB (CK-2) Rel Index Total Protein Albumin TSH Urine WBC (Auto) Salicylates 03/23/17 03/23/17 03/23/17 05:39 14:06 21:39 WBC RBC Hgb Hct MCV MCH RDW Plt Count Lymph % (Auto) [place] % (Auto) Eos % (Auto) [place] # Seg Neutrophils % Seg Neuts % (Manual) Lymphocytes % (Manual) Seg Neutrophils # Seg Neutrophils # Man Lymphocytes # (Manual) APTT POC ABG pH ABG pH POC ABG pCO2 POC ABG pO2 ABG pO2 ABG HCO3 ABG Base Excess ABG Hemoglobin VBG pH Oxyhemoglobin Sodium Potassium Chloride Carbon Dioxide BUN Creatinine Glucose POC Glucose 234 H 241 H 248 H Lactic Acid Calcium AST ALT Alkaline Phosphatase CK-MB (CK-2) CK-MB (CK-2) Rel Index Total Protein Albumin TSH Urine WBC (Auto) Salicylates 03/24/17 03/24/17 03/25/17 05:06 21:46 05:38 WBC RBC Hgb Hct MCV MCH RDW Plt Count Lymph % (Auto) [place] % (Auto) Eos % (Auto) [place] # Seg Neutrophils % Seg Neuts % (Manual) Lymphocytes % (Manual) Seg Neutrophils # Seg Neutrophils # Man Lymphocytes # (Manual) APTT POC ABG pH ABG pH POC ABG pCO2 POC ABG pO2 ABG pO2 ABG HCO3 ABG Base Excess ABG Hemoglobin VBG pH Oxyhemoglobin Sodium Potassium Chloride Carbon Dioxide BUN Creatinine Glucose POC Glucose 232 H 276 H 242 H Lactic Acid Calcium AST ALT Alkaline Phosphatase CK-MB (CK-2) CK-MB (CK-2) Rel Index Total Protein Albumin TSH Urine WBC (Auto) Salicylates 03/25/17 03/25/17 03/26/17 14:30 23:14 13:53 WBC RBC Hgb Hct MCV MCH RDW Plt Count Lymph % (Auto) [place] % (Auto) Eos % (Auto) [place] # Seg Neutrophils % Seg Neuts % (Manual) Lymphocytes % (Manual) Seg Neutrophils # Seg Neutrophils # Man Lymphocytes # (Manual) APTT POC ABG pH ABG pH POC ABG pCO2 POC ABG pO2 ABG pO2 ABG HCO3 ABG Base Excess ABG Hemoglobin VBG pH Oxyhemoglobin Sodium Potassium Chloride Carbon Dioxide BUN Creatinine Glucose POC Glucose 246 H 208 H 195 H Lactic Acid Calcium AST ALT Alkaline Phosphatase CK-MB (CK-2) CK-MB (CK-2) Rel Index Total Protein Albumin TSH Urine WBC (Auto) Salicylates 03/26/17 03/27/17 03/27/17 21:58 05:18 14:57 WBC RBC Hgb Hct MCV MCH RDW Plt Count Lymph % (Auto) [place] % (Auto) Eos % (Auto) [place] # Seg Neutrophils % Seg Neuts % (Manual) Lymphocytes % (Manual) Seg Neutrophils # Seg Neutrophils # Man Lymphocytes # (Manual) APTT POC ABG pH ABG pH POC ABG pCO2 POC ABG pO2 ABG pO2 ABG HCO3 ABG Base Excess ABG Hemoglobin VBG pH Oxyhemoglobin Sodium Potassium Chloride Carbon Dioxide BUN Creatinine Glucose POC Glucose 241 H 199 H 269 H Lactic Acid Calcium AST ALT Alkaline Phosphatase CK-MB (CK-2) CK-MB (CK-2) Rel Index Total Protein Albumin TSH Urine WBC (Auto) Salicylates 03/27/17 03/28/17 03/28/17 21:33 13:52 21:29 WBC RBC Hgb Hct MCV MCH RDW Plt Count Lymph % (Auto) [place] % (Auto) Eos % (Auto) [place] # Seg Neutrophils % Seg Neuts % (Manual) Lymphocytes % (Manual) Seg Neutrophils # Seg Neutrophils # Man Lymphocytes # (Manual) APTT POC ABG pH ABG pH POC ABG pCO2 POC ABG pO2 ABG pO2 ABG HCO3 ABG Base Excess ABG Hemoglobin VBG pH Oxyhemoglobin Sodium Potassium Chloride Carbon Dioxide BUN Creatinine Glucose POC Glucose 214 H 243 H 286 H Lactic Acid Calcium AST ALT Alkaline Phosphatase CK-MB (CK-2) CK-MB (CK-2) Rel Index Total Protein Albumin TSH Urine WBC (Auto) Salicylates 03/29/17 03/29/17 03/29/17 04:32 04:32 13:58 WBC RBC Hgb 10.6 L Hct 32.9 L MCV 78 L MCH 25 L RDW 17.6 H Plt Count Lymph % (Auto) 38.0 H [place] % (Auto) 9.7 H Eos % (Auto) [place] # Seg Neutrophils % Seg Neuts % (Manual) Lymphocytes % (Manual) Seg Neutrophils # Seg Neutrophils # Man Lymphocytes # (Manual) APTT POC ABG pH ABG pH POC ABG pCO2 POC ABG pO2 ABG pO2 ABG HCO3 ABG Base Excess ABG Hemoglobin VBG pH Oxyhemoglobin Sodium 132 L Potassium Chloride 94.0 L Carbon Dioxide BUN 28 H Creatinine 0.5 L Glucose 236 H POC Glucose 171 H Lactic Acid Calcium AST ALT 71 H Alkaline Phosphatase 391 H CK-MB (CK-2) CK-MB (CK-2) Rel Index Total Protein 8.3 H Albumin 2.9 L TSH Urine WBC (Auto) Salicylates 03/29/17 03/30/17 03/30/17 20:59 06:07 11:52 WBC RBC Hgb Hct MCV MCH RDW Plt Count Lymph % (Auto) [place] % (Auto) Eos % (Auto) [place] # Seg Neutrophils % Seg Neuts % (Manual) Lymphocytes % (Manual) Seg Neutrophils # Seg Neutrophils # Man Lymphocytes # (Manual) APTT POC ABG pH ABG pH POC ABG pCO2 POC ABG pO2 ABG pO2 ABG HCO3 ABG Base Excess ABG Hemoglobin VBG pH Oxyhemoglobin Sodium Potassium Chloride Carbon Dioxide BUN Creatinine Glucose POC Glucose 215 H 259 H 197 H Lactic Acid Calcium AST ALT Alkaline Phosphatase CK-MB (CK-2) CK-MB (CK-2) Rel Index Total Protein Albumin TSH Urine WBC (Auto) Salicylates 03/30/17 03/31/17 03/31/17 21:34 05:42 14:34 WBC RBC Hgb Hct MCV MCH RDW Plt Count Lymph % (Auto) [place] % (Auto) Eos % (Auto) [place] # Seg Neutrophils % Seg Neuts % (Manual) Lymphocytes % (Manual) Seg Neutrophils # Seg Neutrophils # Man Lymphocytes # (Manual) APTT POC ABG pH ABG pH POC ABG pCO2 POC ABG pO2 ABG pO2 ABG HCO3 ABG Base Excess ABG Hemoglobin VBG pH Oxyhemoglobin Sodium Potassium Chloride Carbon Dioxide BUN Creatinine Glucose POC Glucose 207 H 184 H 213 H Lactic Acid Calcium AST ALT Alkaline Phosphatase CK-MB (CK-2) CK-MB (CK-2) Rel Index Total Protein Albumin TSH Urine WBC (Auto) Salicylates 03/31/17 04/01/17 04/01/17 21:32 05:53 13:48 WBC RBC Hgb Hct MCV MCH RDW Plt Count Lymph % (Auto) [place] % (Auto) Eos % (Auto) [place] # Seg Neutrophils % Seg Neuts % (Manual) Lymphocytes % (Manual) Seg Neutrophils # Seg Neutrophils # Man Lymphocytes # (Manual) APTT POC ABG pH ABG pH POC ABG pCO2 POC ABG pO2 ABG pO2 ABG HCO3 ABG Base Excess ABG Hemoglobin VBG pH Oxyhemoglobin Sodium Potassium Chloride Carbon Dioxide BUN Creatinine Glucose POC Glucose 249 H 225 H 256 H Lactic Acid Calcium AST ALT Alkaline Phosphatase CK-MB (CK-2) CK-MB (CK-2) Rel Index Total Protein Albumin TSH Urine WBC (Auto) Salicylates 04/01/17 04/02/17 04/02/17 21:34 05:32 14:05 WBC RBC Hgb Hct MCV MCH RDW Plt Count Lymph % (Auto) [place] % (Auto) Eos % (Auto) [place] # Seg Neutrophils % Seg Neuts % (Manual) Lymphocytes % (Manual) Seg Neutrophils # Seg Neutrophils # Man Lymphocytes # (Manual) APTT POC ABG pH ABG pH POC ABG pCO2 POC ABG pO2 ABG pO2 ABG HCO3 ABG Base Excess ABG Hemoglobin VBG pH Oxyhemoglobin Sodium Potassium Chloride Carbon Dioxide BUN Creatinine Glucose POC Glucose 292 H 220 H 187 H Lactic Acid Calcium AST ALT Alkaline Phosphatase CK-MB (CK-2) CK-MB (CK-2) Rel Index Total Protein Albumin TSH Urine WBC (Auto) Salicylates 04/02/17 04/03/17 04/03/17 21:57 04:49 14:12 WBC RBC Hgb Hct MCV MCH RDW Plt Count Lymph % (Auto) [place] % (Auto) Eos % (Auto) [place] # Seg Neutrophils % Seg Neuts % (Manual) Lymphocytes % (Manual) Seg Neutrophils # Seg Neutrophils # Man Lymphocytes # (Manual) APTT POC ABG pH ABG pH POC ABG pCO2 POC ABG pO2 ABG pO2 ABG HCO3 ABG Base Excess ABG Hemoglobin VBG pH Oxyhemoglobin Sodium Potassium Chloride Carbon Dioxide BUN Creatinine Glucose POC Glucose 285 H 256 H 197 H Lactic Acid Calcium AST ALT Alkaline Phosphatase CK-MB (CK-2) CK-MB (CK-2) Rel Index Total Protein Albumin TSH Urine WBC (Auto) Salicylates 04/03/17 04/04/17 04/04/17 21:11 05:20 13:18 WBC RBC Hgb Hct MCV MCH RDW Plt Count Lymph % (Auto) [place] % (Auto) Eos % (Auto) [place] # Seg Neutrophils % Seg Neuts % (Manual) Lymphocytes % (Manual) Seg Neutrophils # Seg Neutrophils # Man Lymphocytes # (Manual) APTT POC ABG pH ABG pH POC ABG pCO2 POC ABG pO2 ABG pO2 ABG HCO3 ABG Base Excess ABG Hemoglobin VBG pH Oxyhemoglobin Sodium Potassium Chloride Carbon Dioxide BUN Creatinine Glucose POC Glucose 166 H 228 H 252 H Lactic Acid Calcium AST ALT Alkaline Phosphatase CK-MB (CK-2) CK-MB (CK-2) Rel Index Total Protein Albumin TSH Urine WBC (Auto) Salicylates 04/04/17 04/05/17 04/05/17 21:51 06:14 09:54 WBC RBC Hgb Hct MCV MCH RDW Plt Count Lymph % (Auto) [place] % (Auto) Eos % (Auto) [place] # Seg Neutrophils % Seg Neuts % (Manual) Lymphocytes % (Manual) Seg Neutrophils # Seg Neutrophils # Man Lymphocytes # (Manual) APTT POC ABG pH ABG pH POC ABG pCO2 POC ABG pO2 ABG pO2 ABG HCO3 ABG Base Excess ABG Hemoglobin VBG pH Oxyhemoglobin Sodium Potassium Chloride Carbon Dioxide BUN Creatinine Glucose POC Glucose 252 H 152 H 181 H Lactic Acid Calcium AST ALT Alkaline Phosphatase CK-MB (CK-2) CK-MB (CK-2) Rel Index Total Protein Albumin TSH Urine WBC (Auto) Salicylates 04/05/17 04/05/17 04/05/17 14:49 17:34 21:38 WBC RBC Hgb Hct MCV MCH RDW Plt Count Lymph % (Auto) [place] % (Auto) Eos % (Auto) [place] # Seg Neutrophils % Seg Neuts % (Manual) Lymphocytes % (Manual) Seg Neutrophils # Seg Neutrophils # Man Lymphocytes # (Manual) APTT POC ABG pH ABG pH POC ABG pCO2 POC ABG pO2 ABG pO2 ABG HCO3 ABG Base Excess ABG Hemoglobin VBG pH Oxyhemoglobin Sodium Potassium Chloride Carbon Dioxide BUN Creatinine Glucose POC Glucose 219 H 268 H 278 H Lactic Acid Calcium AST ALT Alkaline Phosphatase CK-MB (CK-2) CK-MB (CK-2) Rel Index Total Protein Albumin TSH Urine WBC (Auto) Salicylates 04/06/17 04/06/17 04/07/17 15:04 22:14 05:09 WBC RBC Hgb Hct MCV MCH RDW Plt Count Lymph % (Auto) [place] % (Auto) Eos % (Auto) [place] # Seg Neutrophils % Seg Neuts % (Manual) Lymphocytes % (Manual) Seg Neutrophils # Seg Neutrophils # Man Lymphocytes # (Manual) APTT POC ABG pH ABG pH POC ABG pCO2 POC ABG pO2 ABG pO2 ABG HCO3 ABG Base Excess ABG Hemoglobin VBG pH Oxyhemoglobin Sodium Potassium Chloride Carbon Dioxide BUN Creatinine Glucose POC Glucose 285 H 106 H 334 H Lactic Acid Calcium AST ALT Alkaline Phosphatase CK-MB (CK-2) CK-MB (CK-2) Rel Index Total Protein Albumin TSH Urine WBC (Auto) Salicylates 04/07/17 04/07/17 04/08/17 14:45 21:48 05:28 WBC RBC Hgb Hct MCV MCH RDW Plt Count Lymph % (Auto) [place] % (Auto) Eos % (Auto) [place] # Seg Neutrophils % Seg Neuts % (Manual) Lymphocytes % (Manual) Seg Neutrophils # Seg Neutrophils # Man Lymphocytes # (Manual) APTT POC ABG pH ABG pH POC ABG pCO2 POC ABG pO2 ABG pO2 ABG HCO3 ABG Base Excess ABG Hemoglobin VBG pH Oxyhemoglobin Sodium Potassium Chloride Carbon Dioxide BUN Creatinine Glucose POC Glucose 173 H 304 H 314 H Lactic Acid Calcium AST ALT Alkaline Phosphatase CK-MB (CK-2) CK-MB (CK-2) Rel Index Total Protein Albumin TSH Urine WBC (Auto) Salicylates 04/08/17 04/08/17 04/08/17 15:57 16:17 22:21 WBC RBC Hgb Hct MCV MCH RDW Plt Count Lymph % (Auto) [place] % (Auto) Eos % (Auto) [place] # Seg Neutrophils % Seg Neuts % (Manual) Lymphocytes % (Manual) Seg Neutrophils # Seg Neutrophils # Man Lymphocytes # (Manual) APTT POC ABG pH ABG pH POC ABG pCO2 POC ABG pO2 ABG pO2 ABG HCO3 ABG Base Excess ABG Hemoglobin VBG pH Oxyhemoglobin Sodium Potassium Chloride Carbon Dioxide BUN Creatinine Glucose POC Glucose 356 H 337 H 323 H Lactic Acid Calcium AST ALT Alkaline Phosphatase CK-MB (CK-2) CK-MB (CK-2) Rel Index Total Protein Albumin TSH Urine WBC (Auto) Salicylates 04/09/17 04/09/17 04/09/17 06:19 15:30 21:52 WBC RBC Hgb Hct MCV MCH RDW Plt Count Lymph % (Auto) [place] % (Auto) Eos % (Auto) [place] # Seg Neutrophils % Seg Neuts % (Manual) Lymphocytes % (Manual) Seg Neutrophils # Seg Neutrophils # Man Lymphocytes # (Manual) APTT POC ABG pH ABG pH POC ABG pCO2 POC ABG pO2 ABG pO2 ABG HCO3 ABG Base Excess ABG Hemoglobin VBG pH Oxyhemoglobin Sodium Potassium Chloride Carbon Dioxide BUN Creatinine Glucose POC Glucose 340 H 332 H 341 H Lactic Acid Calcium AST ALT Alkaline Phosphatase CK-MB (CK-2) CK-MB (CK-2) Rel Index Total Protein Albumin TSH Urine WBC (Auto) Salicylates 04/10/17 04/10/17 04/10/17 01:53 05:33 17:40 WBC RBC Hgb Hct MCV MCH RDW Plt Count Lymph % (Auto) [place] % (Auto) Eos % (Auto) [place] # Seg Neutrophils % Seg Neuts % (Manual) Lymphocytes % (Manual) Seg Neutrophils # Seg Neutrophils # Man Lymphocytes # (Manual) APTT POC ABG pH ABG pH POC ABG pCO2 POC ABG pO2 ABG pO2 ABG HCO3 ABG Base Excess ABG Hemoglobin VBG pH Oxyhemoglobin Sodium Potassium Chloride Carbon Dioxide BUN Creatinine Glucose POC Glucose 261 H 277 H 304 H Lactic Acid Calcium AST ALT Alkaline Phosphatase CK-MB (CK-2) CK-MB (CK-2) Rel Index Total Protein Albumin TSH Urine WBC (Auto) Salicylates 04/10/17 04/11/17 04/11/17 21:29 05:28 14:02 WBC RBC Hgb Hct MCV MCH RDW Plt Count Lymph % (Auto) [place] % (Auto) Eos % (Auto) [place] # Seg Neutrophils % Seg Neuts % (Manual) Lymphocytes % (Manual) Seg Neutrophils # Seg Neutrophils # Man Lymphocytes # (Manual) APTT POC ABG pH ABG pH POC ABG pCO2 POC ABG pO2 ABG pO2 ABG HCO3 ABG Base Excess ABG Hemoglobin VBG pH Oxyhemoglobin Sodium Potassium Chloride Carbon Dioxide BUN Creatinine Glucose POC Glucose 361 H 204 H 236 H Lactic Acid Calcium AST ALT Alkaline Phosphatase CK-MB (CK-2) CK-MB (CK-2) Rel Index Total Protein Albumin TSH Urine WBC (Auto) Salicylates 04/11/17 04/12/17 04/12/17 21:43 05:00 11:53 WBC RBC Hgb Hct MCV MCH RDW Plt Count Lymph % (Auto) [place] % (Auto) Eos % (Auto) [place] # Seg Neutrophils % Seg Neuts % (Manual) Lymphocytes % (Manual) Seg Neutrophils # Seg Neutrophils # Man Lymphocytes # (Manual) APTT POC ABG pH ABG pH POC ABG pCO2 POC ABG pO2 ABG pO2 ABG HCO3 ABG Base Excess ABG Hemoglobin VBG pH Oxyhemoglobin Sodium Potassium Chloride Carbon Dioxide BUN Creatinine Glucose POC Glucose 287 H 294 H 265 H Lactic Acid Calcium AST ALT Alkaline Phosphatase CK-MB (CK-2) CK-MB (CK-2) Rel Index Total Protein Albumin TSH Urine WBC (Auto) Salicylates 04/12/17 04/12/17 04/13/17 21:21 23:44 06:05 WBC RBC Hgb Hct MCV MCH RDW Plt Count Lymph % (Auto) [place] % (Auto) Eos % (Auto) [place] # Seg Neutrophils % Seg Neuts % (Manual) Lymphocytes % (Manual) Seg Neutrophils # Seg Neutrophils # Man Lymphocytes # (Manual) APTT POC ABG pH ABG pH POC ABG pCO2 POC ABG pO2 ABG pO2 ABG HCO3 ABG Base Excess ABG Hemoglobin VBG pH Oxyhemoglobin Sodium Potassium Chloride Carbon Dioxide BUN Creatinine Glucose POC Glucose 289 H 348 H 326 H Lactic Acid Calcium AST ALT Alkaline Phosphatase CK-MB (CK-2) CK-MB (CK-2) Rel Index Total Protein Albumin TSH Urine WBC (Auto) Salicylates 04/13/17 04/13/17 04/14/17 13:54 21:15 05:49 WBC RBC Hgb Hct MCV MCH RDW Plt Count Lymph % (Auto) [place] % (Auto) Eos % (Auto) [place] # Seg Neutrophils % Seg Neuts % (Manual) Lymphocytes % (Manual) Seg Neutrophils # Seg Neutrophils # Man Lymphocytes # (Manual) APTT POC ABG pH ABG pH POC ABG pCO2 POC ABG pO2 ABG pO2 ABG HCO3 ABG Base Excess ABG Hemoglobin VBG pH Oxyhemoglobin Sodium Potassium Chloride Carbon Dioxide BUN Creatinine Glucose POC Glucose 326 H 263 H 319 H Lactic Acid Calcium AST ALT Alkaline Phosphatase CK-MB (CK-2) CK-MB (CK-2) Rel Index Total Protein Albumin TSH Urine WBC (Auto) Salicylates 04/14/17 04/14/17 04/15/17 13:26 23:13 14:24 WBC RBC Hgb Hct MCV MCH RDW Plt Count Lymph % (Auto) [place] % (Auto) Eos % (Auto) [place] # Seg Neutrophils % Seg Neuts % (Manual) Lymphocytes % (Manual) Seg Neutrophils # Seg Neutrophils # Man Lymphocytes # (Manual) APTT POC ABG pH ABG pH POC ABG pCO2 POC ABG pO2 ABG pO2 ABG HCO3 ABG Base Excess ABG Hemoglobin VBG pH Oxyhemoglobin Sodium Potassium Chloride Carbon Dioxide BUN Creatinine Glucose POC Glucose 207 H 365 H 308 H Lactic Acid Calcium AST ALT Alkaline Phosphatase CK-MB (CK-2) CK-MB (CK-2) Rel Index Total Protein Albumin TSH Urine WBC (Auto) Salicylates 04/15/17 04/15/17 04/15/17 21:00 22:18 23:12 WBC RBC Hgb Hct MCV MCH RDW Plt Count Lymph % (Auto) [place] % (Auto) Eos % (Auto) [place] # Seg Neutrophils % Seg Neuts % (Manual) Lymphocytes % (Manual) Seg Neutrophils # Seg Neutrophils # Man Lymphocytes # (Manual) APTT POC ABG pH ABG pH POC ABG pCO2 POC ABG pO2 ABG pO2 ABG HCO3 ABG Base Excess ABG Hemoglobin VBG pH Oxyhemoglobin Sodium Potassium Chloride Carbon Dioxide BUN Creatinine Glucose POC Glucose 407 H 287 H 325 H Lactic Acid Calcium AST ALT Alkaline Phosphatase CK-MB (CK-2) CK-MB (CK-2) Rel Index Total Protein Albumin TSH Urine WBC (Auto) Salicylates 04/16/17 04/16/17 04/16/17 05:30 10:07 14:26 WBC RBC Hgb Hct MCV MCH RDW Plt Count Lymph % (Auto) [place] % (Auto) Eos % (Auto) [place] # Seg Neutrophils % Seg Neuts % (Manual) Lymphocytes % (Manual) Seg Neutrophils # Seg Neutrophils # Man Lymphocytes # (Manual) APTT POC ABG pH ABG pH POC ABG pCO2 POC ABG pO2 ABG pO2 ABG HCO3 ABG Base Excess ABG Hemoglobin VBG pH Oxyhemoglobin Sodium Potassium Chloride Carbon Dioxide BUN Creatinine Glucose POC Glucose 304 H 217 H 344 H Lactic Acid Calcium AST ALT Alkaline Phosphatase CK-MB (CK-2) CK-MB (CK-2) Rel Index Total Protein Albumin TSH Urine WBC (Auto) Salicylates 04/16/17 04/17/17 04/17/17 21:25 05:12 14:19 WBC RBC Hgb Hct MCV MCH RDW Plt Count Lymph % (Auto) [place] % (Auto) Eos % (Auto) [place] # Seg Neutrophils % Seg Neuts % (Manual) Lymphocytes % (Manual) Seg Neutrophils # Seg Neutrophils # Man Lymphocytes # (Manual) APTT POC ABG pH ABG pH POC ABG pCO2 POC ABG pO2 ABG pO2 ABG HCO3 ABG Base Excess ABG Hemoglobin VBG pH Oxyhemoglobin Sodium Potassium Chloride Carbon Dioxide BUN Creatinine Glucose POC Glucose 305 H 233 H 324 H Lactic Acid Calcium AST ALT Alkaline Phosphatase CK-MB (CK-2) CK-MB (CK-2) Rel Index Total Protein Albumin TSH Urine WBC (Auto) Salicylates 04/17/17 04/18/17 04/18/17 21:42 06:21 14:08 WBC RBC Hgb Hct MCV MCH RDW Plt Count Lymph % (Auto) [place] % (Auto) Eos % (Auto) [place] # Seg Neutrophils % Seg Neuts % (Manual) Lymphocytes % (Manual) Seg Neutrophils # Seg Neutrophils # Man Lymphocytes # (Manual) APTT POC ABG pH ABG pH POC ABG pCO2 POC ABG pO2 ABG pO2 ABG HCO3 ABG Base Excess ABG Hemoglobin VBG pH Oxyhemoglobin Sodium Potassium Chloride Carbon Dioxide BUN Creatinine Glucose POC Glucose 270 H 308 H 290 H Lactic Acid Calcium AST ALT Alkaline Phosphatase CK-MB (CK-2) CK-MB (CK-2) Rel Index Total Protein Albumin TSH Urine WBC (Auto) Salicylates 04/18/17 04/19/17 04/19/17 21:50 05:20 13:59 WBC RBC Hgb Hct MCV MCH RDW Plt Count Lymph % (Auto) [place] % (Auto) Eos % (Auto) [place] # Seg Neutrophils % Seg Neuts % (Manual) Lymphocytes % (Manual) Seg Neutrophils # Seg Neutrophils # Man Lymphocytes # (Manual) APTT POC ABG pH ABG pH POC ABG pCO2 POC ABG pO2 ABG pO2 ABG HCO3 ABG Base Excess ABG Hemoglobin VBG pH Oxyhemoglobin Sodium Potassium Chloride Carbon Dioxide BUN Creatinine Glucose POC Glucose 167 H 372 H 321 H Lactic Acid Calcium AST ALT Alkaline Phosphatase CK-MB (CK-2) CK-MB (CK-2) Rel Index Total Protein Albumin TSH Urine WBC (Auto) Salicylates 04/19/17 04/20/17 04/20/17 21:16 14:18 21:34 WBC RBC Hgb Hct MCV MCH RDW Plt Count Lymph % (Auto) [place] % (Auto) Eos % (Auto) [place] # Seg Neutrophils % Seg Neuts % (Manual) Lymphocytes % (Manual) Seg Neutrophils # Seg Neutrophils # Man Lymphocytes # (Manual) APTT POC ABG pH ABG pH POC ABG pCO2 POC ABG pO2 ABG pO2 ABG HCO3 ABG Base Excess ABG Hemoglobin VBG pH Oxyhemoglobin Sodium Potassium Chloride Carbon Dioxide BUN Creatinine Glucose POC Glucose 182 H 218 H 121 H Lactic Acid Calcium AST ALT Alkaline Phosphatase CK-MB (CK-2) CK-MB (CK-2) Rel Index Total Protein Albumin TSH Urine WBC (Auto) Salicylates 04/21/17 04/21/17 04/21/17 00:08 05:16 12:41 WBC RBC Hgb Hct MCV MCH RDW Plt Count Lymph % (Auto) [place] % (Auto) Eos % (Auto) [place] # Seg Neutrophils % Seg Neuts % (Manual) Lymphocytes % (Manual) Seg Neutrophils # Seg Neutrophils # Man Lymphocytes # (Manual) APTT POC ABG pH ABG pH POC ABG pCO2 POC ABG pO2 ABG pO2 ABG HCO3 ABG Base Excess ABG Hemoglobin VBG pH Oxyhemoglobin Sodium Potassium Chloride Carbon Dioxide BUN Creatinine Glucose POC Glucose 128 H 120 H 216 H Lactic Acid Calcium AST ALT Alkaline Phosphatase CK-MB (CK-2) CK-MB (CK-2) Rel Index Total Protein Albumin TSH Urine WBC (Auto) Salicylates 04/21/17 04/22/17 04/22/17 23:40 14:12 23:38 WBC RBC Hgb Hct MCV MCH RDW Plt Count Lymph % (Auto) [place] % (Auto) Eos % (Auto) [place] # Seg Neutrophils % Seg Neuts % (Manual) Lymphocytes % (Manual) Seg Neutrophils # Seg Neutrophils # Man Lymphocytes # (Manual) APTT POC ABG pH ABG pH POC ABG pCO2 POC ABG pO2 ABG pO2 ABG HCO3 ABG Base Excess ABG Hemoglobin VBG pH Oxyhemoglobin Sodium Potassium Chloride Carbon Dioxide BUN Creatinine Glucose POC Glucose 157 H 242 H 117 H Lactic Acid Calcium AST ALT Alkaline Phosphatase CK-MB (CK-2) CK-MB (CK-2) Rel Index Total Protein Albumin TSH Urine WBC (Auto) Salicylates 04/23/17 04/23/17 04/24/17 05:18 14:01 03:24 WBC RBC Hgb Hct MCV MCH RDW Plt Count Lymph % (Auto) [place] % (Auto) Eos % (Auto) [place] # Seg Neutrophils % Seg Neuts % (Manual) Lymphocytes % (Manual) Seg Neutrophils # Seg Neutrophils # Man Lymphocytes # (Manual) APTT POC ABG pH ABG pH POC ABG pCO2 POC ABG pO2 ABG pO2 ABG HCO3 ABG Base Excess ABG Hemoglobin VBG pH Oxyhemoglobin Sodium Potassium Chloride Carbon Dioxide BUN Creatinine Glucose POC Glucose 163 H 57 L 177 H Lactic Acid Calcium AST ALT Alkaline Phosphatase CK-MB (CK-2) CK-MB (CK-2) Rel Index Total Protein Albumin TSH Urine WBC (Auto) Salicylates 04/24/17 04/24/17 04/24/17 04:00 04:00 06:33 WBC RBC Hgb 9.9 L Hct 30.0 L MCV 79 L MCH 26 L RDW 17.1 H Plt Count 625 H Lymph % (Auto) [place] % (Auto) 8.4 H Eos % (Auto) [place] # Seg Neutrophils % Seg Neuts % (Manual) Lymphocytes % (Manual) Seg Neutrophils # Seg Neutrophils # Man Lymphocytes # (Manual) APTT POC ABG pH ABG pH POC ABG pCO2 POC ABG pO2 ABG pO2 ABG HCO3 ABG Base Excess ABG Hemoglobin VBG pH Oxyhemoglobin Sodium 136 L Potassium Chloride 94.9 L Carbon Dioxide BUN 40 H Creatinine 0.6 L Glucose 176 H POC Glucose 230 H Lactic Acid Calcium AST 67 H ALT Alkaline Phosphatase 294 H CK-MB (CK-2) CK-MB (CK-2) Rel Index Total Protein 9.0 H Albumin 2.5 L TSH Urine WBC (Auto) Salicylates 04/24/17 04/25/17 04/25/17 13:50 00:22 02:55 WBC RBC 3.54 L Hgb 9.0 L Hct 27.9 L MCV 79 L MCH 26 L RDW 17.5 H Plt Count 574 H Lymph % (Auto) [place] % (Auto) 10.4 H Eos % (Auto) [place] # 1.0 H Seg Neutrophils % Seg Neuts % (Manual) Lymphocytes % (Manual) Seg Neutrophils # Seg Neutrophils # Man Lymphocytes # (Manual) APTT POC ABG pH ABG pH POC ABG pCO2 POC ABG pO2 ABG pO2 ABG HCO3 ABG Base Excess ABG Hemoglobin VBG pH Oxyhemoglobin Sodium Potassium Chloride Carbon Dioxide BUN Creatinine Glucose POC Glucose 116 H < 40 L Lactic Acid Calcium AST ALT Alkaline Phosphatase CK-MB (CK-2) CK-MB (CK-2) Rel Index Total Protein Albumin TSH Urine WBC (Auto) Salicylates 04/25/17 04/25/17 04/25/17 02:55 11:15 18:36 WBC RBC Hgb Hct MCV MCH RDW Plt Count Lymph % (Auto) [place] % (Auto) Eos % (Auto) [place] # Seg Neutrophils % Seg Neuts % (Manual) Lymphocytes % (Manual) Seg Neutrophils # Seg Neutrophils # Man Lymphocytes # (Manual) APTT POC ABG pH ABG pH POC ABG pCO2 POC ABG pO2 ABG pO2 ABG HCO3 ABG Base Excess ABG Hemoglobin VBG pH Oxyhemoglobin Sodium Potassium Chloride 96.2 L Carbon Dioxide BUN 39 H Creatinine 0.7 L Glucose 125 H POC Glucose 227 H 280 H Lactic Acid Calcium AST ALT Alkaline Phosphatase 247 H CK-MB (CK-2) CK-MB (CK-2) Rel Index Total Protein Albumin 2.7 L TSH Urine WBC (Auto) Salicylates 04/25/17 04/26/17 04/26/17 21:49 06:53 07:27 WBC RBC 3.61 L Hgb 9.1 L Hct 28.1 L MCV 78 L MCH 25 L RDW 17.4 H Plt Count 594 H Lymph % (Auto) [place] % (Auto) 9.2 H Eos % (Auto) [place] # 1.0 H Seg Neutrophils % 70.6 H Seg Neuts % (Manual) Lymphocytes % (Manual) Seg Neutrophils # Seg Neutrophils # Man Lymphocytes # (Manual) APTT POC ABG pH ABG pH POC ABG pCO2 POC ABG pO2 ABG pO2 ABG HCO3 ABG Base Excess ABG Hemoglobin VBG pH Oxyhemoglobin Sodium Potassium Chloride Carbon Dioxide BUN Creatinine Glucose POC Glucose 192 H 60 L Lactic Acid Calcium AST ALT Alkaline Phosphatase CK-MB (CK-2) CK-MB (CK-2) Rel Index Total Protein Albumin TSH Urine WBC (Auto) Salicylates 04/26/17 04/26/17 04/26/17 07:27 07:28 13:32 WBC RBC Hgb Hct MCV MCH RDW Plt Count Lymph % (Auto) [place] % (Auto) Eos % (Auto) [place] # Seg Neutrophils % Seg Neuts % (Manual) Lymphocytes % (Manual) Seg Neutrophils # Seg Neutrophils # Man Lymphocytes # (Manual) APTT POC ABG pH ABG pH POC ABG pCO2 POC ABG pO2 ABG pO2 ABG HCO3 ABG Base Excess ABG Hemoglobin VBG pH Oxyhemoglobin Sodium Potassium Chloride 95.0 L Carbon Dioxide BUN 42 H Creatinine 0.7 L Glucose 172 H POC Glucose 190 H 168 H Lactic Acid Calcium AST 56 H ALT Alkaline Phosphatase 274 H CK-MB (CK-2) CK-MB (CK-2) Rel Index Total Protein 8.9 H Albumin 2.7 L TSH Urine WBC (Auto) Salicylates 04/26/17 04/27/17 04/27/17 23:36 05:10 05:10 WBC RBC 3.49 L Hgb 8.7 L Hct 27.0 L MCV 77 L MCH 25 L RDW 17.4 H Plt Count 558 H Lymph % (Auto) [place] % (Auto) 9.6 H Eos % (Auto) [place] # Seg Neutrophils % Seg Neuts % (Manual) Lymphocytes % (Manual) Seg Neutrophils # Seg Neutrophils # Man Lymphocytes # (Manual) APTT POC ABG pH ABG pH POC ABG pCO2 POC ABG pO2 ABG pO2 ABG HCO3 ABG Base Excess ABG Hemoglobin VBG pH Oxyhemoglobin Sodium 133 L Potassium Chloride 93.5 L Carbon Dioxide BUN 40 H Creatinine 0.7 L Glucose 179 H POC Glucose 204 H Lactic Acid Calcium AST 73 H ALT 58 H Alkaline Phosphatase 294 H CK-MB (CK-2) CK-MB (CK-2) Rel Index Total Protein 8.7 H Albumin 2.4 L TSH Urine WBC (Auto) Salicylates 04/27/17 04/27/17 04/27/17 05:45 14:08 23:46 WBC RBC Hgb Hct MCV MCH RDW Plt Count Lymph % (Auto) [place] % (Auto) Eos % (Auto) [place] # Seg Neutrophils % Seg Neuts % (Manual) Lymphocytes % (Manual) Seg Neutrophils # Seg Neutrophils # Man Lymphocytes # (Manual) APTT POC ABG pH ABG pH POC ABG pCO2 POC ABG pO2 ABG pO2 ABG HCO3 ABG Base Excess ABG Hemoglobin VBG pH Oxyhemoglobin Sodium Potassium Chloride Carbon Dioxide BUN Creatinine Glucose POC Glucose 200 H 206 H 207 H Lactic Acid Calcium AST ALT Alkaline Phosphatase CK-MB (CK-2) CK-MB (CK-2) Rel Index Total Protein Albumin TSH Urine WBC (Auto) Salicylates 04/28/17 04/28/17 04/28/17 04:48 04:53 05:10 WBC RBC 3.48 L Hgb 8.8 L Hct 26.7 L MCV 77 L MCH 25 L RDW 17.0 H Plt Count 515 H Lymph % (Auto) [place] % (Auto) 8.4 H Eos % (Auto) [place] # Seg Neutrophils % 70.6 H Seg Neuts % (Manual) Lymphocytes % (Manual) Seg Neutrophils # Seg Neutrophils # Man Lymphocytes # (Manual) APTT POC ABG pH ABG pH POC ABG pCO2 POC ABG pO2 ABG pO2 ABG HCO3 ABG Base Excess ABG Hemoglobin VBG pH Oxyhemoglobin Sodium Potassium Chloride Carbon Dioxide BUN Creatinine Glucose POC Glucose 43 L 41 L Lactic Acid Calcium AST ALT Alkaline Phosphatase CK-MB (CK-2) CK-MB (CK-2) Rel Index Total Protein Albumin TSH Urine WBC (Auto) Salicylates 04/28/17 04/28/17 04/28/17 05:10 14:06 22:07 WBC RBC Hgb Hct MCV MCH RDW Plt Count Lymph % (Auto) [place] % (Auto) Eos % (Auto) [place] # Seg Neutrophils % Seg Neuts % (Manual) Lymphocytes % (Manual) Seg Neutrophils # Seg Neutrophils # Man Lymphocytes # (Manual) APTT POC ABG pH ABG pH POC ABG pCO2 POC ABG pO2 ABG pO2 ABG HCO3 ABG Base Excess ABG Hemoglobin VBG pH Oxyhemoglobin Sodium 136 L Potassium Chloride 95.2 L Carbon Dioxide BUN 42 H Creatinine Glucose 63 L POC Glucose 303 H 227 H Lactic Acid Calcium AST 45 H ALT Alkaline Phosphatase 271 H CK-MB (CK-2) CK-MB (CK-2) Rel Index Total Protein 8.9 H Albumin 2.5 L TSH Urine WBC (Auto) Salicylates 04/29/17 04/29/17 04/29/17 06:40 14:11 21:35 WBC RBC Hgb Hct MCV MCH RDW Plt Count Lymph % (Auto) [place] % (Auto) Eos % (Auto) [place] # Seg Neutrophils % Seg Neuts % (Manual) Lymphocytes % (Manual) Seg Neutrophils # Seg Neutrophils # Man Lymphocytes # (Manual) APTT POC ABG pH ABG pH POC ABG pCO2 POC ABG pO2 ABG pO2 ABG HCO3 ABG Base Excess ABG Hemoglobin VBG pH Oxyhemoglobin Sodium Potassium Chloride Carbon Dioxide BUN Creatinine Glucose POC Glucose 254 H 244 H 184 H Lactic Acid Calcium AST ALT Alkaline Phosphatase CK-MB (CK-2) CK-MB (CK-2) Rel Index Total Protein Albumin TSH Urine WBC (Auto) Salicylates 04/30/17 04/30/17 04/30/17 05:17 14:03 22:08 WBC RBC Hgb Hct MCV MCH RDW Plt Count Lymph % (Auto) [place] % (Auto) Eos % (Auto) [place] # Seg Neutrophils % Seg Neuts % (Manual) Lymphocytes % (Manual) Seg Neutrophils # Seg Neutrophils # Man Lymphocytes # (Manual) APTT POC ABG pH ABG pH POC ABG pCO2 POC ABG pO2 ABG pO2 ABG HCO3 ABG Base Excess ABG Hemoglobin VBG pH Oxyhemoglobin Sodium Potassium Chloride Carbon Dioxide BUN Creatinine Glucose POC Glucose 173 H 182 H 247 H Lactic Acid Calcium AST ALT Alkaline Phosphatase CK-MB (CK-2) CK-MB (CK-2) Rel Index Total Protein Albumin TSH Urine WBC (Auto) Salicylates 05/01/17 05/01/17 05/01/17 05:04 15:37 18:50 WBC RBC Hgb Hct MCV MCH RDW Plt Count Lymph % (Auto) [place] % (Auto) Eos % (Auto) [place] # Seg Neutrophils % Seg Neuts % (Manual) Lymphocytes % (Manual) Seg Neutrophils # Seg Neutrophils # Man Lymphocytes # (Manual) APTT POC ABG pH ABG pH POC ABG pCO2 POC ABG pO2 ABG pO2 ABG HCO3 ABG Base Excess ABG Hemoglobin VBG pH Oxyhemoglobin Sodium Potassium Chloride Carbon Dioxide BUN Creatinine Glucose POC Glucose 335 H 68 L 144 H Lactic Acid Calcium AST ALT Alkaline Phosphatase CK-MB (CK-2) CK-MB (CK-2) Rel Index Total Protein Albumin TSH Urine WBC (Auto) Salicylates 05/01/17 05/02/17 05/02/17 22:13 04:59 14:06 WBC RBC Hgb Hct MCV MCH RDW Plt Count Lymph % (Auto) [place] % (Auto) Eos % (Auto) [place] # Seg Neutrophils % Seg Neuts % (Manual) Lymphocytes % (Manual) Seg Neutrophils # Seg Neutrophils # Man Lymphocytes # (Manual) APTT POC ABG pH ABG pH POC ABG pCO2 POC ABG pO2 ABG pO2 ABG HCO3 ABG Base Excess ABG Hemoglobin VBG pH Oxyhemoglobin Sodium Potassium Chloride Carbon Dioxide BUN Creatinine Glucose POC Glucose 192 H 225 H 165 H Lactic Acid Calcium AST ALT Alkaline Phosphatase CK-MB (CK-2) CK-MB (CK-2) Rel Index Total Protein Albumin TSH Urine WBC (Auto) Salicylates 05/02/17 05/03/17 05/03/17 21:20 05:16 16:56 WBC RBC Hgb Hct MCV MCH RDW Plt Count Lymph % (Auto) [place] % (Auto) Eos % (Auto) [place] # Seg Neutrophils % Seg Neuts % (Manual) Lymphocytes % (Manual) Seg Neutrophils # Seg Neutrophils # Man Lymphocytes # (Manual) APTT POC ABG pH ABG pH POC ABG pCO2 POC ABG pO2 ABG pO2 ABG HCO3 ABG Base Excess ABG Hemoglobin VBG pH Oxyhemoglobin Sodium Potassium Chloride Carbon Dioxide BUN Creatinine Glucose POC Glucose 181 H 323 H 125 H Lactic Acid Calcium AST ALT Alkaline Phosphatase CK-MB (CK-2) CK-MB (CK-2) Rel Index Total Protein Albumin TSH Urine WBC (Auto) Salicylates 05/03/17 05/04/17 05/04/17 21:46 05:01 14:24 WBC RBC Hgb Hct MCV MCH RDW Plt Count Lymph % (Auto) [place] % (Auto) Eos % (Auto) [place] # Seg Neutrophils % Seg Neuts % (Manual) Lymphocytes % (Manual) Seg Neutrophils # Seg Neutrophils # Man Lymphocytes # (Manual) APTT POC ABG pH ABG pH POC ABG pCO2 POC ABG pO2 ABG pO2 ABG HCO3 ABG Base Excess ABG Hemoglobin VBG pH Oxyhemoglobin Sodium Potassium Chloride Carbon Dioxide BUN Creatinine Glucose POC Glucose 210 H 360 H 219 H Lactic Acid Calcium AST ALT Alkaline Phosphatase CK-MB (CK-2) CK-MB (CK-2) Rel Index Total Protein Albumin TSH Urine WBC (Auto) Salicylates 05/04/17 05/05/17 05/05/17 21:39 01:58 05:13 WBC RBC Hgb Hct MCV MCH RDW Plt Count Lymph % (Auto) [place] % (Auto) Eos % (Auto) [place] # Seg Neutrophils % Seg Neuts % (Manual) Lymphocytes % (Manual) Seg Neutrophils # Seg Neutrophils # Man Lymphocytes # (Manual) APTT POC ABG pH ABG pH POC ABG pCO2 POC ABG pO2 ABG pO2 ABG HCO3 ABG Base Excess ABG Hemoglobin VBG pH Oxyhemoglobin Sodium Potassium Chloride Carbon Dioxide BUN Creatinine Glucose POC Glucose 126 H 175 H 267 H Lactic Acid Calcium AST ALT Alkaline Phosphatase CK-MB (CK-2) CK-MB (CK-2) Rel Index Total Protein Albumin TSH Urine WBC (Auto) Salicylates 05/05/17 05/05/17 05/05/17 12:19 14:11 21:18 WBC RBC Hgb Hct MCV MCH RDW Plt Count Lymph % (Auto) [place] % (Auto) Eos % (Auto) [place] # Seg Neutrophils % Seg Neuts % (Manual) Lymphocytes % (Manual) Seg Neutrophils # Seg Neutrophils # Man Lymphocytes # (Manual) APTT POC ABG pH ABG pH POC ABG pCO2 POC ABG pO2 ABG pO2 ABG HCO3 ABG Base Excess ABG Hemoglobin VBG pH Oxyhemoglobin Sodium Potassium Chloride Carbon Dioxide BUN Creatinine Glucose POC Glucose 221 H 205 H 156 H Lactic Acid Calcium AST ALT Alkaline Phosphatase CK-MB (CK-2) CK-MB (CK-2) Rel Index Total Protein Albumin TSH Urine WBC (Auto) Salicylates 05/06/17 05/06/17 05/06/17 06:02 15:26 21:43 WBC RBC Hgb Hct MCV MCH RDW Plt Count Lymph % (Auto) [place] % (Auto) Eos % (Auto) [place] # Seg Neutrophils % Seg Neuts % (Manual) Lymphocytes % (Manual) Seg Neutrophils # Seg Neutrophils # Man Lymphocytes # (Manual) APTT POC ABG pH ABG pH POC ABG pCO2 POC ABG pO2 ABG pO2 ABG HCO3 ABG Base Excess ABG Hemoglobin VBG pH Oxyhemoglobin Sodium Potassium Chloride Carbon Dioxide BUN Creatinine Glucose POC Glucose 263 H 143 H 145 H Lactic Acid Calcium AST ALT Alkaline Phosphatase CK-MB (CK-2) CK-MB (CK-2) Rel Index Total Protein Albumin TSH Urine WBC (Auto) Salicylates 05/07/17 05/07/17 05/07/17 05:52 21:46 21:49 WBC RBC Hgb Hct MCV MCH RDW Plt Count Lymph % (Auto) [place] % (Auto) Eos % (Auto) [place] # Seg Neutrophils % Seg Neuts % (Manual) Lymphocytes % (Manual) Seg Neutrophils # Seg Neutrophils # Man Lymphocytes # (Manual) APTT POC ABG pH ABG pH POC ABG pCO2 POC ABG pO2 ABG pO2 ABG HCO3 ABG Base Excess ABG Hemoglobin VBG pH Oxyhemoglobin Sodium Potassium Chloride Carbon Dioxide BUN Creatinine Glucose POC Glucose 242 H < 40 L < 40 L Lactic Acid Calcium AST ALT Alkaline Phosphatase CK-MB (CK-2) CK-MB (CK-2) Rel Index Total Protein Albumin TSH Urine WBC (Auto) Salicylates 05/07/17 05/08/17 05/09/17 22:41 06:14 00:02 WBC RBC Hgb Hct MCV MCH RDW Plt Count Lymph % (Auto) [place] % (Auto) Eos % (Auto) [place] # Seg Neutrophils % Seg Neuts % (Manual) Lymphocytes % (Manual) Seg Neutrophils # Seg Neutrophils # Man Lymphocytes # (Manual) APTT POC ABG pH ABG pH POC ABG pCO2 POC ABG pO2 ABG pO2 ABG HCO3 ABG Base Excess ABG Hemoglobin VBG pH Oxyhemoglobin Sodium Potassium Chloride Carbon Dioxide BUN Creatinine Glucose POC Glucose 183 H 329 H 130 H Lactic Acid Calcium AST ALT Alkaline Phosphatase CK-MB (CK-2) CK-MB (CK-2) Rel Index Total Protein Albumin TSH Urine WBC (Auto) Salicylates 05/09/17 05/09/17 05/09/17 06:08 14:06 21:44 WBC RBC Hgb Hct MCV MCH RDW Plt Count Lymph % (Auto) [place] % (Auto) Eos % (Auto) [place] # Seg Neutrophils % Seg Neuts % (Manual) Lymphocytes % (Manual) Seg Neutrophils # Seg Neutrophils # Man Lymphocytes # (Manual) APTT POC ABG pH ABG pH POC ABG pCO2 POC ABG pO2 ABG pO2 ABG HCO3 ABG Base Excess ABG Hemoglobin VBG pH Oxyhemoglobin Sodium Potassium Chloride Carbon Dioxide BUN Creatinine Glucose POC Glucose 241 H 251 H 198 H Lactic Acid Calcium AST ALT Alkaline Phosphatase CK-MB (CK-2) CK-MB (CK-2) Rel Index Total Protein Albumin TSH Urine WBC (Auto) Salicylates 05/10/17 05/10/17 05/10/17 05:18 14:44 21:53 WBC RBC Hgb Hct MCV MCH RDW Plt Count Lymph % (Auto) [place] % (Auto) Eos % (Auto) [place] # Seg Neutrophils % Seg Neuts % (Manual) Lymphocytes % (Manual) Seg Neutrophils # Seg Neutrophils # Man Lymphocytes # (Manual) APTT POC ABG pH ABG pH POC ABG pCO2 POC ABG pO2 ABG pO2 ABG HCO3 ABG Base Excess ABG Hemoglobin VBG pH Oxyhemoglobin Sodium Potassium Chloride Carbon Dioxide BUN Creatinine Glucose POC Glucose 166 H 224 H 171 H Lactic Acid Calcium AST ALT Alkaline Phosphatase CK-MB (CK-2) CK-MB (CK-2) Rel Index Total Protein Albumin TSH Urine WBC (Auto) Salicylates 05/11/17 05/11/17 05/11/17 05:45 13:44 21:42 WBC RBC Hgb Hct MCV MCH RDW Plt Count Lymph % (Auto) [place] % (Auto) Eos % (Auto) [place] # Seg Neutrophils % Seg Neuts % (Manual) Lymphocytes % (Manual) Seg Neutrophils # Seg Neutrophils # Man Lymphocytes # (Manual) APTT POC ABG pH ABG pH POC ABG pCO2 POC ABG pO2 ABG pO2 ABG HCO3 ABG Base Excess ABG Hemoglobin VBG pH Oxyhemoglobin Sodium Potassium Chloride Carbon Dioxide BUN Creatinine Glucose POC Glucose 199 H 150 H 163 H Lactic Acid Calcium AST ALT Alkaline Phosphatase CK-MB (CK-2) CK-MB (CK-2) Rel Index Total Protein Albumin TSH Urine WBC (Auto) Salicylates 05/12/17 05/12/17 05/12/17 06:03 13:59 21:22 WBC RBC Hgb Hct MCV MCH RDW Plt Count Lymph % (Auto) [place] % (Auto) Eos % (Auto) [place] # Seg Neutrophils % Seg Neuts % (Manual) Lymphocytes % (Manual) Seg Neutrophils # Seg Neutrophils # Man Lymphocytes # (Manual) APTT POC ABG pH ABG pH POC ABG pCO2 POC ABG pO2 ABG pO2 ABG HCO3 ABG Base Excess ABG Hemoglobin VBG pH Oxyhemoglobin Sodium Potassium Chloride Carbon Dioxide BUN Creatinine Glucose POC Glucose 147 H 243 H 116 H Lactic Acid Calcium AST ALT Alkaline Phosphatase CK-MB (CK-2) CK-MB (CK-2) Rel Index Total Protein Albumin TSH Urine WBC (Auto) Salicylates 05/13/17 05/13/17 05/13/17 05:28 13:49 21:29 WBC RBC Hgb Hct MCV MCH RDW Plt Count Lymph % (Auto) [place] % (Auto) Eos % (Auto) [place] # Seg Neutrophils % Seg Neuts % (Manual) Lymphocytes % (Manual) Seg Neutrophils # Seg Neutrophils # Man Lymphocytes # (Manual) APTT POC ABG pH ABG pH POC ABG pCO2 POC ABG pO2 ABG pO2 ABG HCO3 ABG Base Excess ABG Hemoglobin VBG pH Oxyhemoglobin Sodium Potassium Chloride Carbon Dioxide BUN Creatinine Glucose POC Glucose 213 H 224 H 379 H Lactic Acid Calcium AST ALT Alkaline Phosphatase CK-MB (CK-2) CK-MB (CK-2) Rel Index Total Protein Albumin TSH Urine WBC (Auto) Salicylates 05/14/17 05:17 WBC RBC Hgb Hct MCV MCH RDW Plt Count Lymph % (Auto) [place] % (Auto) Eos % (Auto) [place] # Seg Neutrophils % Seg Neuts % (Manual) Lymphocytes % (Manual) Seg Neutrophils # Seg Neutrophils # Man Lymphocytes # (Manual) APTT POC ABG pH ABG pH POC ABG pCO2 POC ABG pO2 ABG pO2 ABG HCO3 ABG Base Excess ABG Hemoglobin VBG pH Oxyhemoglobin Sodium Potassium Chloride Carbon Dioxide BUN Creatinine Glucose POC Glucose 234 H Lactic Acid Calcium AST ALT Alkaline Phosphatase CK-MB (CK-2) CK-MB (CK-2) Rel Index Total Protein Albumin TSH Urine WBC (Auto) Salicylates
--- NOTE | 2017-05-14 16:36 | Progress Note ---
Assessment and Plan Assessment and plan: Persistently status. 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 Hospitalist Physical - Physical exam Narrative exam: Intubated and on mechanical ventilation. The patient appeared well nourished and normally developed. Vital signs as documented. Head exam is unremarkable. No scleral icterus . Neck is without jugular venous distension, thyromegaly, or carotid bruits. Lungs are clear to auscultation. Cardiac exam reveals regular rate and Rhythm. Abdominal exam reveals normal bowel sounds. Extremities are nonedematous and both femoral and pedal pulses are normal. [employer] GATEM[employer]: Comatose. Pupils are not dilated, but non reactive to light. - Constitutional Vitals: Temp Pulse Resp BP Pulse Ox 97.8 F 71 21 100/61 100 05/14/17 12:00 05/14/17 14:01 05/14/17 14:01 05/14/17 14:01 05/14/17 14:01 General appearance: Present: no acute distress Results - Labs CBC & Chem 7: 04/28/17 05:10 04/28/17 05:10 Labs: Laboratory Last Values WBC 9.3 K/mm3 (4.5-11.0) 04/28/17 05:10 RBC 3.48 M/mm3 (3.65-5.03) L 04/28/17 05:10 Hgb 8.8 gm/dl (11.8-15.2) L 04/28/17 05:10 Hct 26.7 % (35.5-45.6) L 04/28/17 05:10 MCV 77 fl (84-94) L 04/28/17 05:10 MCH 25 pg (28-32) L 04/28/17 05:10 MCHC 33 % (32-34) 04/28/17 05:10 RDW 17.0 % (13.2-15.2) H 04/28/17 05:10 Plt Count 515 K/mm3 (140-440) H 04/28/17 05:10 Lymph % (Auto) 18.4 % (13.4-35.0) 04/28/17 05:10 [place] % (Auto) 8.4 % (0.0-7.3) H 04/28/17 05:10 Eos % (Auto) 1.8 % (0.0-4.3) 04/28/17 05:10 Baso % (Auto) 0.8 % (0.0-1.8) 04/28/17 05:10 Lymph # 1.7 K/mm3 (1.2-5.4) 04/28/17 05:10 [place] # 0.8 K/mm3 (0.0-0.8) 04/28/17 05:10 Eos # 0.2 K/mm3 (0.0-0.4) 04/28/17 05:10 Baso # 0.1 K/mm3 (0.0-0.1) 04/28/17 05:10 Add Manual Diff Complete 01/10/17 04:30 Total Counted 100 01/10/17 04:30 Seg Neutrophils % 70.6 % (40.0-70.0) H 04/28/17 05:10 Seg Neuts % (Manual) 88.0 % (40.0-70.0) H 01/10/17 04:30 Band Neutrophils % 7.0 % 01/10/17 04:30 Lymphocytes % (Manual) 4.0 % (13.4-35.0) L 01/10/17 04:30 Reactive Lymphs % (Man) 0 % 01/10/17 04:30 Monocytes % (Manual) 1.0 % (0.0-7.3) 01/10/17 04:30 Eosinophils % (Manual) 0 % (0.0-4.3) 01/10/17 04:30 Basophils % (Manual) 0 % (0.0-1.8) 01/10/17 04:30 Metamyelocytes % 0 % 01/10/17 04:30 Myelocytes % 0 % 01/10/17 04:30 Promyelocytes % 0 % 01/10/17 04:30 Blast Cells % 0 % 01/10/17 04:30 Nucleated RBC % Not Reportable 01/10/17 04:30 Seg Neutrophils # 6.6 K/mm3 (1.8-7.7) 04/28/17 05:10 Seg Neutrophils # Man 21.2 K/mm3 (1.8-7.7) H 01/10/17 04:30 Band Neutrophils # 1.7 K/mm3 01/10/17 04:30 Lymphocytes # (Manual) 1.0 K/mm3 (1.2-5.4) L 01/10/17 04:30 Abs React Lymphs (Man) 0.0 K/mm3 01/10/17 04:30 Monocytes # (Manual) 0.2 K/mm3 (0.0-0.8) 01/10/17 04:30 Eosinophils # (Manual) 0.0 K/mm3 (0.0-0.4) 01/10/17 04:30 Basophils # (Manual) 0.0 K/mm3 (0.0-0.1) 01/10/17 04:30 Metamyelocytes # 0.0 K/mm3 01/10/17 04:30 Myelocytes # 0.0 K/mm3 01/10/17 04:30 Promyelocytes # 0.0 K/mm3 01/10/17 04:30 Blast Cells # 0.0 K/mm3 01/10/17 04:30 WBC Morphology Not Reportable 01/10/17 04:30 Hypersegmented Neuts Not Reportable 01/10/17 04:30 Hyposegmented Neuts Not Reportable 01/10/17 04:30 Hypogranular Neuts Not Reportable 01/10/17 04:30 Smudge Cells Not Reportable 01/10/17 04:30 Toxic Granulation Not Reportable 01/10/17 04:30 Toxic Vacuolation Not Reportable 01/10/17 04:30 Dohle Bodies Not Reportable 01/10/17 04:30 Pelger-Huet Anomaly Not Reportable 01/10/17 04:30 [place] Rods Not Reportable 01/10/17 04:30 Platelet Estimate Consistent w auto 01/10/17 04:30 Clumped Platelets Not Reportable 01/10/17 04:30 Plt Clumps, EDTA Not Reportable 01/10/17 04:30 Large Platelets Not Reportable 01/10/17 04:30 Giant Platelets Not Reportable 01/10/17 04:30 Platelet Satelliting Not Reportable 01/10/17 04:30 Plt Morphology Comment Not Reportable 01/10/17 04:30 RBC Morphology Not Reportable 01/10/17 04:30 Dimorphic RBCs Not Reportable 01/10/17 04:30 Polychromasia Not Reportable 01/10/17 04:30 Hypochromasia 1+ 01/10/17 04:30 Poikilocytosis Not Reportable 01/10/17 04:30 Anisocytosis Not Reportable 01/10/17 04:30 Microcytosis Not Reportable 01/10/17 04:30 Macrocytosis Not Reportable 01/10/17 04:30 Spherocytes Not Reportable 01/10/17 04:30 Pappenheimer Bodies Not Reportable 01/10/17 04:30 Sickle Cells Not Reportable 01/10/17 04:30 Target Cells Not Reportable 01/10/17 04:30 Tear Drop Cells Not Reportable 01/10/17 04:30 Ovalocytes Not Reportable 01/10/17 04:30 Helmet Cells Not Reportable 01/10/17 04:[address] [place] Bodies Not Reportable 01/10/17 04:30 [place] Rings Not Reportable 01/10/17 04:30 [place] Cells Not Reportable 01/10/17 04:30 Bite Cells Not Reportable 01/10/17 04:30 Crenated Cell Not Reportable 01/10/17 04:30 Elliptocytes Not Reportable 01/10/17 04:30 Acanthocytes (Spur) Not Reportable 01/10/17 04:30 Rouleaux Not Reportable 01/10/17 04:30 Hemoglobin C Crystals Not Reportable 01/10/17 04:30 Schistocytes Not Reportable 01/10/17 04:30 Malaria parasites Not Reportable 01/10/17 04:30 Kyle Bodies Not Reportable 01/10/17 04:30 Hem Pathologist Commnt No 01/10/17 04:30 PT 14.1 Sec. (12.2-14.9) 01/17/17 04:10 INR 1.04 (0.87-1.13) 01/17/17 04:10 APTT 36.6 Sec. (24.2-36.6) 01/17/17 04:10 POC ABG pH 7.442 (7.35-7.45) 01/31/17 18:55 ABG pH 7.420 pH Units (7.350-7.450) 01/17/17 04:35 POC ABG pCO2 32.8 (35-45) L 01/31/17 18:55 ABG pCO2 34.5 mm Hg 01/17/17 04:35 POC ABG pO2 82 (80-105) 01/31/17 18:55 ABG pO2 160.3 mm Hg (80.0-90.0) H 01/17/17 04:35 POC ABG HCO3 22.4 01/31/17 18:55 ABG HCO3 21.9 mmol/L (20.0-26.0) 01/17/17 04:35 POC ABG Total CO2 23 01/31/17 18:55 POC ABG O2 Sat 97 01/31/17 18:55 ABG O2 Saturation 99.0 % (95.0-99.0) 01/17/17 04:35 ABG O2 Content 11.1 (0.0-44) 01/17/17 04:35 POC ABG Base Excess -2 01/31/17 18:55 ABG Base Excess -2.3 mmol/L (-2.0-3.0) L 01/17/17 04:35 ABG Hemoglobin 7.9 gm/dl (14.0-18.0) L 01/17/17 04:35 ABG Carboxyhemoglobin 1.5 % (0.0-5.0) 01/17/17 04:35 ABG Methemoglobin 0.5 % (0.0-1.5) 01/17/17 04:35 VBG pH 7.284 (7.320-7.420) L 01/09/17 10:16 Oxyhemoglobin 97.1 % (95.0-99.0) 01/17/17 04:35 FiO2 25 % 01/31/17 18:55 Sodium 136 mmol/L (137-145) L 04/28/17 05:10 Potassium 4.5 mmol/L (3.6-5.0) 04/28/17 05:10 Chloride 95.2 mmol/L (98-107) L 04/28/17 05:10 Carbon Dioxide 27 mmol/L (22-30) 04/28/17 05:10 Anion Gap 18 mmol/L 04/28/17 05:10 BUN 42 mg/dL (9-20) H 04/28/17 05:10 Creatinine 0.9 mg/dL (0.8-1.5) 04/28/17 05:10 Estimated GFR > 60 ml/min 04/28/17 05:10 BUN/Creatinine Ratio 47 % 04/28/17 05:10 Glucose 63 mg/dL (75-100) L 04/28/17 05:10 POC Glucose 234 (70-105) H 05/14/17 05:17 Lactic Acid 0.80 mmol/L (0.7-2.0) 01/30/17 11:49 Calcium 9.1 mg/dL (8.4-10.2) 04/28/17 05:10 Phosphorus 3.10 mg/dL (2.5-4.5) 03/29/17 04:32 Magnesium 1.90 mg/dL (1.7-2.3) 03/29/17 04:32 Total Bilirubin 0.50 mg/dL (0.1-1.2) 04/28/17 05:10 AST 45 units/L (5-40) H 04/28/17 05:10 ALT 42 units/L (7-56) 04/28/17 05:10 Alkaline Phosphatase 271 units/L (35-129) H 04/28/17 05:10 Ammonia 35.0 umol/L (25-60) 01/09/17 10:16 Total Creatine Kinase 135 units/L (55-170) 01/09/17 10:16 CK-MB (CK-2) 7.1 ng/mL (0.0-4.0) H 01/09/17 10:16 CK-MB (CK-2) Rel Index 5.2 (0-4) H 01/09/17 10:16 Troponin T < 0.010 ng/mL (0.00-0.029) 01/09/17 10:16 NT-Pro-B Natriuret Pep 602.9 pg/mL (0-900) 01/09/17 10:16 Total Protein 8.9 g/dL (6.3-8.2) H 04/28/17 05:10 Albumin 2.5 g/dL (3.9-5) L 04/28/17 05:10 Albumin/Globulin Ratio 0.4 % 04/28/17 05:10 TSH 52.800 mlU/mL (0.270-4.200) H 01/09/17 10:16 Free T4 0.78 ng/dL (0.76-1.46) 01/09/17 10:16 Total Cortisol 54.8 mcg/dL () 01/09/17 16:19 Urine Color Yellow (Yellow) 01/28/17 17:52 Urine Turbidity Clear (Clear) 01/28/17 17:52 Urine pH 6.0 (5.0-7.0) 01/28/17 17:52 Ur Specific [place] 1.016 (1.003-1.030) 01/28/17 17:52 Urine Protein 100 mg/dl mg/dL (Negative) 01/28/17 17:52 Urine Glucose (UA) >=500 mg/dL (Negative) 01/28/17 17:52 Urine Ketones Neg mg/dL (Negative) 01/28/17 17:52 Urine Blood Sm (Negative) 01/28/17 17:52 Urine Nitrite Neg (Negative) 01/28/17 17:52 Urine Bilirubin Neg (Negative) 01/28/17 17:52 Urine Urobilinogen < 2.0 mg/dL (<2.0) 01/28/17 17:52 Ur Leukocyte Esterase Lg (Negative) 01/28/17 17:52 Urine WBC (Auto) > 182.0 /HPF (0.0-6.0) H 01/28/17 17:52 Urine RBC (Auto) 113.0 /HPF (0.0-6.0) 01/28/17 17:52 Urine Bacteria (Auto) 2+ /HPF (Negative) 01/28/17 17:52 Urine WBC Clumps 3+ /HPF 01/28/17 17:52 Urine Mucus Few /HPF 01/14/17 14:07 Urine Yeast (Budding) 3+ /HPF 01/14/17 14:07 Salicylates < 0.3 mg/dL (2.8-20.0) L 01/09/17 10:16 Urine Opiates Screen Presumptive negative 01/09/17 10:23 Urine Methadone Screen Presumptive negative 01/09/17 10:23 Acetaminophen < 15.0 ug/mL (10.0-30.0) 01/09/17 10:16 Ur Barbiturates Screen Presumptive negative 01/09/17 10:23 Ur Phencyclidine Scrn Presumptive negative 01/09/17 10:23 Ur Amphetamines Screen Presumptive negative 01/09/17 10:23 U Benzodiazepines Scrn Presumptive negative 01/09/17 10:23 Urine Cocaine Screen Presumptive negative 01/09/17 10:23 U Marijuana (THC) Screen Presumptive negative 01/09/17 10:23 Drugs of Abuse Note Disclamer 01/09/17 10:23 Plasma/Serum Alcohol < 0.01 gm% (0-0.07) 01/09/17 10:16
[2017-05-15] MEDS: HumuLIN R SUB-Q SCH ×2 (06:02→15:56)
[2017-05-15] MEDS: SYNTHROID PO SCH (07:02)
[2017-05-15] MEDS: HEPARIN SUB-Q SCH ×2 (09:46→21:24)
[2017-05-15] MEDS: PEPCID PO SCH ×2 (09:46→21:26)
[2017-05-15] MEDS: LEVEMIR (NF) SUB-Q SCH (09:46)
--- NOTE | 2017-05-15 15:10 | Progress Note ---
Assessment and Plan Assessment and plan: Persistently status. 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 Likely tomorrow. History Interval history: Patient was seen and evaluated this morning, patient is comatose, on mechanical ventilation, patient is in persistent vegetative state. Hospitalist Physical - Physical exam Narrative exam: Intubated and on mechanical ventilation. The patient appeared well nourished and normally developed. Vital signs as documented. Head exam is unremarkable. No scleral icterus . Neck is without jugular venous distension, thyromegaly, or carotid bruits. Lungs are clear to auscultation. Cardiac exam reveals regular rate and Rhythm. Abdominal exam reveals normal bowel sounds. Extremities are nonedematous and both femoral and pedal pulses are normal. 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 Pupils are not dilated, but non reactive to light. - Constitutional Vitals: Temp Pulse Resp BP Pulse Ox 98.7 F 73 16 102/65 100 05/15/17 08:00 05/15/17 13:38 05/15/17 12:00 05/15/17 13:38 05/15/17 13:38 General appearance: Present: no acute distress Results - Labs CBC & Chem 7: 04/28/17 05:10 04/28/17 05:10 Labs: Laboratory Last Values WBC 9.3 K/mm3 (4.5-11.0) 04/28/17 05:10 RBC 3.48 M/mm3 (3.65-5.03) L 04/28/17 05:10 Hgb 8.8 gm/dl (11.8-15.2) L 04/28/17 05:10 Hct 26.7 % (35.5-45.6) L 04/28/17 05:10 MCV 77 fl (84-94) L 04/28/17 05:10 MCH 25 pg (28-32) L 04/28/17 05:10 MCHC 33 % (32-34) 04/28/17 05:10 RDW 17.0 % (13.2-15.2) H 04/28/17 05:10 Plt Count 515 K/mm3 (140-440) H 04/28/17 05:10 Lymph % (Auto) 18.4 % (13.4-35.0) 04/28/17 05:10 [place] % (Auto) 8.4 % (0.0-7.3) H 04/28/17 05:10 Eos % (Auto) 1.8 % (0.0-4.3) 04/28/17 05:10 Baso % (Auto) 0.8 % (0.0-1.8) 04/28/17 05:10 Lymph # 1.7 K/mm3 (1.2-5.4) 04/28/17 05:10 [place] # 0.8 K/mm3 (0.0-0.8) 04/28/17 05:10 Eos # 0.2 K/mm3 (0.0-0.4) 04/28/17 05:10 Baso # 0.1 K/mm3 (0.0-0.1) 04/28/17 05:10 Add Manual Diff Complete 01/10/17 04:30 Total Counted 100 01/10/17 04:30 Seg Neutrophils % 70.6 % (40.0-70.0) H 04/28/17 05:10 Seg Neuts % (Manual) 88.0 % (40.0-70.0) H 01/10/17 04:30 Band Neutrophils % 7.0 % 01/10/17 04:30 Lymphocytes % (Manual) 4.0 % (13.4-35.0) L 01/10/17 04:30 Reactive Lymphs % (Man) 0 % 01/10/17 04:30 Monocytes % (Manual) 1.0 % (0.0-7.3) 01/10/17 04:30 Eosinophils % (Manual) 0 % (0.0-4.3) 01/10/17 04:30 Basophils % (Manual) 0 % (0.0-1.8) 01/10/17 04:30 Metamyelocytes % 0 % 01/10/17 04:30 Myelocytes % 0 % 01/10/17 04:30 Promyelocytes % 0 % 01/10/17 04:30 Blast Cells % 0 % 01/10/17 04:30 Nucleated RBC % Not Reportable 01/10/17 04:30 Seg Neutrophils # 6.6 K/mm3 (1.8-7.7) 04/28/17 05:10 Seg Neutrophils # Man 21.2 K/mm3 (1.8-7.7) H 01/10/17 04:30 Band Neutrophils # 1.7 K/mm3 01/10/17 04:30 Lymphocytes # (Manual) 1.0 K/mm3 (1.2-5.4) L 01/10/17 04:30 Abs React Lymphs (Man) 0.0 K/mm3 01/10/17 04:30 Monocytes # (Manual) 0.2 K/mm3 (0.0-0.8) 01/10/17 04:30 Eosinophils # (Manual) 0.0 K/mm3 (0.0-0.4) 01/10/17 04:30 Basophils # (Manual) 0.0 K/mm3 (0.0-0.1) 01/10/17 04:30 Metamyelocytes # 0.0 K/mm3 01/10/17 04:30 Myelocytes # 0.0 K/mm3 01/10/17 04:30 Promyelocytes # 0.0 K/mm3 01/10/17 04:30 Blast Cells # 0.0 K/mm3 01/10/17 04:30 WBC Morphology Not Reportable 01/10/17 04:30 Hypersegmented Neuts Not Reportable 01/10/17 04:30 Hyposegmented Neuts Not Reportable 01/10/17 04:30 Hypogranular Neuts Not Reportable 01/10/17 04:30 Smudge Cells Not Reportable 01/10/17 04:30 Toxic Granulation Not Reportable 01/10/17 04:30 Toxic Vacuolation Not Reportable 01/10/17 04:30 Dohle Bodies Not Reportable 01/10/17 04:30 Pelger-Huet Anomaly Not Reportable 01/10/17 04:30 [place] Rods Not Reportable 01/10/17 04:30 Platelet Estimate Consistent w auto 01/10/17 04:30 Clumped Platelets Not Reportable 01/10/17 04:30 Plt Clumps, EDTA Not Reportable 01/10/17 04:30 Large Platelets Not Reportable 01/10/17 04:30 Giant Platelets Not Reportable 01/10/17 04:30 Platelet Satelliting Not Reportable 01/10/17 04:30 Plt Morphology Comment Not Reportable 01/10/17 04:30 RBC Morphology Not Reportable 01/10/17 04:30 Dimorphic RBCs Not Reportable 01/10/17 04:30 Polychromasia Not Reportable 01/10/17 04:30 Hypochromasia 1+ 01/10/17 04:30 Poikilocytosis Not Reportable 01/10/17 04:30 Anisocytosis Not Reportable 01/10/17 04:30 Microcytosis Not Reportable 01/10/17 04:30 Macrocytosis Not Reportable 01/10/17 04:30 Spherocytes Not Reportable 01/10/17 04:30 Pappenheimer Bodies Not Reportable 01/10/17 04:30 Sickle Cells Not Reportable 01/10/17 04:30 Target Cells Not Reportable 01/10/17 04:30 Tear Drop Cells Not Reportable 01/10/17 04:30 Ovalocytes Not Reportable 01/10/17 04:30 Helmet Cells Not Reportable 01/10/17 04:30 [place] Bodies Not Reportable 01/10/17 04:30 [place] Rings Not Reportable 01/10/17 04:30 [place] Cells Not Reportable 01/10/17 04:30 Bite Cells Not Reportable 01/10/17 04:30 Crenated Cell Not Reportable 01/10/17 04:30 Elliptocytes Not Reportable 01/10/17 04:30 Acanthocytes (Spur) Not Reportable 01/10/17 04:30 Rouleaux Not Reportable 01/10/17 04:30 Hemoglobin C Crystals Not Reportable 01/10/17 04:30 Schistocytes Not Reportable 01/10/17 04:30 Malaria parasites Not Reportable 01/10/17 04:30 [place] Bodies Not Reportable 01/10/17 04:30 Hem Pathologist Commnt No 01/10/17 04:30 PT 14.1 Sec. (12.2-14.9) 01/17/17 04:10 INR 1.04 (0.87-1.13) 01/17/17 04:10 APTT 36.6 Sec. (24.2-36.6) 01/17/17 04:10 POC ABG pH 7.442 (7.35-7.45) 01/31/17 18:55 ABG pH 7.420 pH Units (7.350-7.450) 01/17/17 04:35 POC ABG pCO2 32.8 (35-45) L 01/31/17 18:55 ABG pCO2 34.5 mm Hg 01/17/17 04:35 POC ABG pO2 82 (80-105) 01/31/17 18:55 ABG pO2 160.3 mm Hg (80.0-90.0) H 01/17/17 04:35 POC ABG HCO3 22.4 01/31/17 18:55 ABG HCO3 21.9 mmol/L (20.0-26.0) 01/17/17 04:35 POC ABG Total CO2 23 01/31/17 18:55 POC ABG O2 Sat 97 01/31/17 18:55 ABG O2 Saturation 99.0 % (95.0-99.0) 01/17/17 04:35 ABG O2 Content 11.1 (0.0-44) 01/17/17 04:35 POC ABG Base Excess -2 01/31/17 18:55 ABG Base Excess -2.3 mmol/L (-2.0-3.0) L 01/17/17 04:35 ABG Hemoglobin 7.9 gm/dl (14.0-18.0) L 01/17/17 04:35 ABG Carboxyhemoglobin 1.5 % (0.0-5.0) 01/17/17 04:35 ABG Methemoglobin 0.5 % (0.0-1.5) 01/17/17 04:35 VBG pH 7.284 (7.320-7.420) L 01/09/17 10:16 Oxyhemoglobin 97.1 % (95.0-99.0) 01/17/17 04:35 FiO2 25 % 01/31/17 18:55 Sodium 136 mmol/L (137-145) L 04/28/17 05:10 Potassium 4.5 mmol/L (3.6-5.0) 04/28/17 05:10 Chloride 95.2 mmol/L (98-107) L 04/28/17 05:10 Carbon Dioxide 27 mmol/L (22-30) 04/28/17 05:10 Anion Gap 18 mmol/L 04/28/17 05:10 BUN 42 mg/dL (9-20) H 04/28/17 05:10 Creatinine 0.9 mg/dL (0.8-1.5) 04/28/17 05:10 Estimated GFR > 60 ml/min 04/28/17 05:10 BUN/Creatinine Ratio 47 % 04/28/17 05:10 Glucose 63 mg/dL (75-100) L 04/28/17 05:10 POC Glucose 310 (70-105) H 05/15/17 04:58 Lactic Acid 0.80 mmol/L (0.7-2.0) 01/30/17 11:49 Calcium 9.1 mg/dL (8.4-10.2) 04/28/17 05:10 Phosphorus 3.10 mg/dL (2.5-4.5) 03/29/17 04:32 Magnesium 1.90 mg/dL (1.7-2.3) 03/29/17 04:32 Total Bilirubin 0.50 mg/dL (0.1-1.2) 04/28/17 05:10 AST 45 units/L (5-40) H 04/28/17 05:10 ALT 42 units/L (7-56) 04/28/17 05:10 Alkaline Phosphatase 271 units/L (35-129) H 04/28/17 05:10 Ammonia 35.0 umol/L (25-60) 01/09/17 10:16 Total Creatine Kinase 135 units/L (55-170) 01/09/17 10:16 CK-MB (CK-2) 7.1 ng/mL (0.0-4.0) H 01/09/17 10:16 CK-MB (CK-2) Rel Index 5.2 (0-4) H 01/09/17 10:16 Troponin T < 0.010 ng/mL (0.00-0.029) 01/09/17 10:16 NT-Pro-B Natriuret Pep 602.9 pg/mL (0-900) 01/09/17 10:16 Total Protein 8.9 g/dL (6.3-8.2) H 04/28/17 05:10 Albumin 2.5 g/dL (3.9-5) L 04/28/17 05:10 Albumin/Globulin Ratio 0.4 % 04/28/17 05:10 TSH 52.800 mlU/mL (0.270-4.200) H 01/09/17 10:16 Free T4 0.78 ng/dL (0.76-1.46) 01/09/17 10:16 Total Cortisol 54.8 mcg/dL () 01/09/17 16:19 Urine Color Yellow (Yellow) 01/28/17 17:52 Urine Turbidity Clear (Clear) 01/28/17 17:52 Urine pH 6.0 (5.0-7.0) 01/28/17 17:52 Ur Specific [place] 1.016 (1.003-1.030) 01/28/17 17:52 Urine Protein 100 mg/dl mg/dL (Negative) 01/28/17 17:52 Urine Glucose (UA) >=500 mg/dL (Negative) 01/28/17 17:52 Urine Ketones Neg mg/dL (Negative) 01/28/17 17:52 Urine Blood Sm (Negative) 01/28/17 17:52 Urine Nitrite Neg (Negative) 01/28/17 17:52 Urine Bilirubin Neg (Negative) 01/28/17 17:52 Urine Urobilinogen < 2.0 mg/dL (<2.0) 01/28/17 17:52 Ur Leukocyte Esterase Lg (Negative) 01/28/17 17:52 Urine WBC (Auto) > 182.0 /HPF (0.0-6.0) H 01/28/17 17:52 Urine RBC (Auto) 113.0 /HPF (0.0-6.0) 01/28/17 17:52 Urine Bacteria (Auto) 2+ /HPF (Negative) 01/28/17 17:52 Urine WBC Clumps 3+ /HPF 01/28/17 17:52 Urine Mucus Few /HPF 01/14/17 14:07 Urine Yeast (Budding) 3+ /HPF 01/14/17 14:07 Salicylates < 0.3 mg/dL (2.8-20.0) L 01/09/17 10:16 Urine Opiates Screen Presumptive negative 01/09/17 10:23 Urine Methadone Screen Presumptive negative 01/09/17 10:23 Acetaminophen < 15.0 ug/mL (10.0-30.0) 01/09/17 10:16 Ur Barbiturates Screen Presumptive negative 01/09/17 10:23 Ur Phencyclidine Scrn Presumptive negative 01/09/17 10:23 Ur Amphetamines Screen Presumptive negative 01/09/17 10:23 U Benzodiazepines Scrn Presumptive negative 01/09/17 10:23 Urine Cocaine Screen Presumptive negative 01/09/17 10:23 U Marijuana (THC) Screen Presumptive negative 01/09/17 10:23 Drugs of Abuse Note Disclamer 01/09/17 10:23 Plasma/Serum Alcohol < 0.01 gm% (0-0.07) 01/09/17 10:16
[2017-05-16] MEDS: VASELINE LIP THERAPY TP PRN (00:26)
--- NOTE | 2017-05-16 09:48 | Progress Note ---
Assessment and Plan acute respiratory failure secondary to metabolic event, prolonged vent support Hypoglycemia/hypothermia -suspect adverse reaction, insulin Hypothyroidism; UTI/SIRS.Resolved Metabolic encephalopathy. Residual vegetative state,sever.No improvement Fever Rec: Comfort care measures T of monitoring and suction See Dr. Horta note regarding power for surg nurse/proxy designation process status. Poor prognosis,unchanged status Subjective Date of service: 05/16/17 Principal diagnosis: Acute respiratory failure,encephalopathy Interval history: No change ,intubated. Objective Vital Signs - 12hr 05/15/17 05/16/17 05/16/17 22:00 00:00 01:23 Temperature Pulse Rate 67 69 71 Respiratory 12 12 Rate Blood Pressure 104/70 109/73 116/75 O2 Sat by Pulse 100 100 100 Oximetry 05/16/17 05/16/17 05/16/17 02:00 04:00 04:38 Temperature Pulse Rate 71 73 78 Respiratory 16 13 Rate Blood Pressure 109/73 117/79 107/67 O2 Sat by Pulse 100 100 100 Oximetry 05/16/17 05/16/17 05/16/17 06:00 07:48 07:55 Temperature Pulse Rate 68 67 68 Respiratory 13 18 Rate Blood Pressure 117/79 116/70 O2 Sat by Pulse 100 100 98 Oximetry 05/16/17 08:00 Temperature 97.6 F Pulse Rate 68 Respiratory 20 Rate Blood Pressure 112/70 O2 Sat by Pulse 99 Oximetry Constitutional: no acute distress, alert, other (on vent) Eyes: non-icteric ENT: oropharynx moist, other (ETT in position) Neck: supple Effort: normal Ascultation: Bilateral: clear, diminished breath sounds Cardiovascular: regular rate and rhythm (no mrg) Gastrointestinal: normoactive bowel sounds, soft, non-tender, non-distended Integumentary: normal Extremities: no cyanosis, no edema, pink and warm Neurologic: pupils equal and round, other (not following commands,mild response to pain) Psychiatric: other (unable to obtain) CBC and BMP: 04/28/17 05:10 04/28/17 05:10 ABG, PT/INR, D-dimer: ABG POC ABG pH 7.442 (7.35-7.45) 01/31/17 18:55 ABG pH 7.420 pH Units (7.350-7.450) 01/17/17 04:35 POC ABG pCO2 32.8 (35-45) L 01/31/17 18:55 ABG pCO2 34.5 mm Hg 01/17/17 04:35 POC ABG pO2 82 (80-105) 01/31/17 18:55 ABG pO2 160.3 mm Hg (80.0-90.0) H 01/17/17 04:35 POC ABG HCO3 22.4 01/31/17 18:55 POC ABG Total CO2 23 01/31/17 18:55 POC ABG O2 Sat 97 01/31/17 18:55 ABG O2 Saturation 99.0 % (95.0-99.0) 01/17/17 04:35 PT/INR, D-dimer PT 14.1 Sec. (12.2-14.9) 01/17/17 04:10 INR 1.04 (0.87-1.13) 01/17/17 04:10 Abnormal lab findings: Abnormal Labs 01/09/17 01/09/17 01/09/17 10:16 10:16 10:16 WBC RBC Hgb 9.7 L Hct 28.4 L MCV 76 L MCH 26 L RDW 17.2 H Plt Count 448 H Lymph % (Auto) Riley % (Auto) Eos % (Auto) Riley # Seg Neutrophils % 79.5 H Seg Neuts % (Manual) Lymphocytes % (Manual) Seg Neutrophils # Seg Neutrophils # Man Lymphocytes # (Manual) APTT 39.6 H POC ABG pH ABG pH POC ABG pCO2 POC ABG pO2 ABG pO2 ABG HCO3 ABG Base Excess ABG Hemoglobin VBG pH Oxyhemoglobin Sodium 132 L Potassium Chloride 96.7 L Carbon Dioxide 21 L BUN 34 H Creatinine Glucose POC Glucose Lactic Acid Calcium 8.3 L AST ALT Alkaline Phosphatase 151 H CK-MB (CK-2) 7.1 H CK-MB (CK-2) Rel Index 5.2 H Total Protein Albumin 3.3 L TSH Urine WBC (Auto) Salicylates 01/09/17 01/09/17 01/09/17 10:16 10:16 10:16 WBC RBC Hgb Hct MCV MCH RDW Plt Count Lymph % (Auto) Riley % (Auto) Eos % (Auto) Riley # Seg Neutrophils % Seg Neuts % (Manual) Lymphocytes % (Manual) Seg Neutrophils # Seg Neutrophils # Man Lymphocytes # (Manual) APTT POC ABG pH ABG pH POC ABG pCO2 POC ABG pO2 ABG pO2 ABG HCO3 ABG Base Excess ABG Hemoglobin VBG pH 7.284 L Oxyhemoglobin Sodium Potassium Chloride Carbon Dioxide BUN Creatinine Glucose POC Glucose Lactic Acid Calcium AST ALT Alkaline Phosphatase CK-MB (CK-2) CK-MB (CK-2) Rel Index Total Protein Albumin TSH 52.800 H Urine WBC (Auto) Salicylates < 0.3 L 01/09/17 01/09/17 01/09/17 10:23 11:14 12:49 WBC RBC Hgb Hct MCV MCH RDW Plt Count Lymph % (Auto) Riley % (Auto) Eos % (Auto) Riley # Seg Neutrophils % Seg Neuts % (Manual) Lymphocytes % (Manual) Seg Neutrophils # Seg Neutrophils # Man Lymphocytes # (Manual) APTT POC ABG pH ABG pH POC ABG pCO2 POC ABG pO2 643 H ABG pO2 ABG HCO3 ABG Base Excess ABG Hemoglobin VBG pH Oxyhemoglobin Sodium Potassium Chloride Carbon Dioxide BUN Creatinine Glucose POC Glucose < 40 L Lactic Acid Calcium AST ALT Alkaline Phosphatase CK-MB (CK-2) CK-MB (CK-2) Rel Index Total Protein Albumin TSH Urine WBC (Auto) 61.0 H Salicylates 01/09/17 01/09/17 01/09/17 13:13 14:21 15:09 WBC RBC Hgb Hct MCV MCH RDW Plt Count Lymph % (Auto) Riley % (Auto) Eos % (Auto) Riley # Seg Neutrophils % Seg Neuts % (Manual) Lymphocytes % (Manual) Seg Neutrophils # Seg Neutrophils # Man Lymphocytes # (Manual) APTT POC ABG pH ABG pH POC ABG pCO2 POC ABG pO2 ABG pO2 ABG HCO3 ABG Base Excess ABG Hemoglobin VBG pH Oxyhemoglobin Sodium Potassium Chloride Carbon Dioxide BUN Creatinine Glucose POC Glucose 128 H 65 L 120 H Lactic Acid Calcium AST ALT Alkaline Phosphatase CK-MB (CK-2) CK-MB (CK-2) Rel Index Total Protein Albumin TSH Urine WBC (Auto) Salicylates 01/09/17 01/09/17 01/10/17 16:28 17:14 04:30 WBC 24.1 H RBC 3.38 L Hgb 8.5 L Hct 26.0 L MCV 77 L MCH 25 L RDW 17.9 H Plt Count 474 H Lymph % (Auto) Riley % (Auto) Eos % (Auto) Riley # Seg Neutrophils % Seg Neuts % (Manual) 88.0 H Lymphocytes % (Manual) 4.0 L Seg Neutrophils # Seg Neutrophils # Man 21.2 H Lymphocytes # (Manual) 1.0 L APTT POC ABG pH ABG pH POC ABG pCO2 POC ABG pO2 ABG pO2 ABG HCO3 ABG Base Excess ABG Hemoglobin VBG pH Oxyhemoglobin Sodium Potassium Chloride Carbon Dioxide BUN Creatinine Glucose POC Glucose 44 L 112 H Lactic Acid Calcium AST ALT Alkaline Phosphatase CK-MB (CK-2) CK-MB (CK-2) Rel Index Total Protein Albumin TSH Urine WBC (Auto) Salicylates 01/10/17 01/10/17 01/10/17 04:30 05:41 05:45 WBC RBC Hgb Hct MCV MCH RDW Plt Count Lymph % (Auto) Riley % (Auto) Eos % (Auto) Riley # Seg Neutrophils % Seg Neuts % (Manual) Lymphocytes % (Manual) Seg Neutrophils # Seg Neutrophils # Man Lymphocytes # (Manual) APTT POC ABG pH ABG pH POC ABG pCO2 26.6 L POC ABG pO2 207 H ABG pO2 ABG HCO3 ABG Base Excess ABG Hemoglobin VBG pH Oxyhemoglobin Sodium Potassium Chloride Carbon Dioxide 17 L BUN 27 H Creatinine Glucose POC Glucose 68 L Lactic Acid Calcium 7.5 L AST ALT Alkaline Phosphatase CK-MB (CK-2) CK-MB (CK-2) Rel Index Total Protein Albumin TSH Urine WBC (Auto) Salicylates 01/10/17 01/10/17 01/10/17 07:47 10:50 13:41 WBC RBC Hgb Hct MCV MCH RDW Plt Count Lymph % (Auto) Riley % (Auto) Eos % (Auto) Riley # Seg Neutrophils % Seg Neuts % (Manual) Lymphocytes % (Manual) Seg Neutrophils # Seg Neutrophils # Man Lymphocytes # (Manual) APTT POC ABG pH ABG pH POC ABG pCO2 POC ABG pO2 ABG pO2 ABG HCO3 ABG Base Excess ABG Hemoglobin VBG pH Oxyhemoglobin Sodium Potassium Chloride Carbon Dioxide BUN Creatinine Glucose POC Glucose 148 H 165 H 114 H Lactic Acid Calcium AST ALT Alkaline Phosphatase CK-MB (CK-2) CK-MB (CK-2) Rel Index Total Protein Albumin TSH Urine WBC (Auto) Salicylates 01/10/17 01/10/1717 20:20 21:39 23:24 WBC RBC Hgb Hct MCV MCH RDW Plt Count Lymph % (Auto) Riley % (Auto) Eos % (Auto) Riley # Seg Neutrophils % Seg Neuts % (Manual) Lymphocytes % (Manual) Seg Neutrophils # Seg Neutrophils # Man Lymphocytes # (Manual) APTT POC ABG pH ABG pH POC ABG pCO2 POC ABG pO2 ABG pO2 ABG HCO3 ABG Base Excess ABG Hemoglobin VBG pH Oxyhemoglobin Sodium Potassium Chloride Carbon Dioxide BUN Creatinine Glucose POC Glucose 150 H 175 H 155 H Lactic Acid Calcium AST ALT Alkaline Phosphatase CK-MB (CK-2) CK-MB (CK-2) Rel Index Total Protein Albumin TSH Urine WBC (Auto) Salicylates 01/11/17 01/11/17 01/11/17 00:19 04:06 05:20 WBC 15.2 H RBC 3.40 L Hgb 8.9 L Hct 26.3 L MCV 78 L MCH 26 L RDW 18.6 H Plt Count 462 H Lymph % (Auto) 13.2 L Riley % (Auto) Eos % (Auto) Riley # Seg Neutrophils % 80.8 H Seg Neuts % (Manual) Lymphocytes % (Manual) Seg Neutrophils # 12.3 H Seg Neutrophils # Man Lymphocytes # (Manual) APTT POC ABG pH 7.463 H ABG pH POC ABG pCO2 26.2 L POC ABG pO2 185 H ABG pO2 ABG HCO3 ABG Base Excess ABG Hemoglobin VBG pH Oxyhemoglobin Sodium Potassium Chloride Carbon Dioxide BUN Creatinine Glucose POC Glucose 163 H Lactic Acid Calcium AST ALT Alkaline Phosphatase CK-MB (CK-2) CK-MB (CK-2) Rel Index Total Protein Albumin TSH Urine WBC (Auto) Salicylates 01/11/17 01/11/17 01/11/17 05:20 06:21 07:57 WBC RBC Hgb Hct MCV MCH RDW Plt Count Lymph % (Auto) Riley % (Auto) Eos % (Auto) Riley # Seg Neutrophils % Seg Neuts % (Manual) Lymphocytes % (Manual) Seg Neutrophils # Seg Neutrophils # Man Lymphocytes # (Manual) APTT POC ABG pH ABG pH POC ABG pCO2 POC ABG pO2 ABG pO2 ABG HCO3 ABG Base Excess ABG Hemoglobin VBG pH Oxyhemoglobin Sodium Potassium 3.4 L Chloride 111.5 H Carbon Dioxide 17 L BUN Creatinine Glucose 147 H POC Glucose 139 H 188 H Lactic Acid Calcium 8.0 L AST ALT Alkaline Phosphatase CK-MB (CK-2) CK-MB (CK-2) Rel Index Total Protein Albumin TSH Urine WBC (Auto) Salicylates 01/11/17 01/11/17 01/11/17 11:46 16:50 23:15 WBC RBC Hgb Hct MCV MCH RDW Plt Count Lymph % (Auto) Riley % (Auto) Eos % (Auto) Riley # Seg Neutrophils % Seg Neuts % (Manual) Lymphocytes % (Manual) Seg Neutrophils # Seg Neutrophils # Man Lymphocytes # (Manual) APTT POC ABG pH ABG pH POC ABG pCO2 POC ABG pO2 ABG pO2 ABG HCO3 ABG Base Excess ABG Hemoglobin VBG pH Oxyhemoglobin Sodium Potassium Chloride Carbon Dioxide BUN Creatinine Glucose POC Glucose 199 H 235 H 155 H Lactic Acid Calcium AST ALT Alkaline Phosphatase CK-MB (CK-2) CK-MB (CK-2) Rel Index Total Protein Albumin TSH Urine WBC (Auto) Salicylates 01/12/17 01/12/17 01/12/17 05:02 06:56 14:50 WBC RBC Hgb Hct MCV MCH RDW Plt Count Lymph % (Auto) Riley % (Auto) Eos % (Auto) Riley # Seg Neutrophils % Seg Neuts % (Manual) Lymphocytes % (Manual) Seg Neutrophils # Seg Neutrophils # Man Lymphocytes # (Manual) APTT POC ABG pH ABG pH POC ABG pCO2 28.0 L POC ABG pO2 178 H ABG pO2 ABG HCO3 ABG Base Excess ABG Hemoglobin VBG pH Oxyhemoglobin Sodium Potassium Chloride Carbon Dioxide BUN Creatinine Glucose POC Glucose 119 H 164 H Lactic Acid Calcium AST ALT Alkaline Phosphatase CK-MB (CK-2) CK-MB (CK-2) Rel Index Total Protein Albumin TSH Urine WBC (Auto) Salicylates 01/13/17 01/13/17 01/13/17 03:37 03:37 04:26 WBC RBC 3.61 L Hgb 9.3 L Hct 28.0 L MCV 78 L MCH 26 L RDW 18.2 H Plt Count Lymph % (Auto) Riley % (Auto) Eos % (Auto) Riley # Seg Neutrophils % Seg Neuts % (Manual) Lymphocytes % (Manual) Seg Neutrophils # Seg Neutrophils # Man Lymphocytes # (Manual) APTT POC ABG pH 7.485 H ABG pH POC ABG pCO2 25.4 L POC ABG pO2 73 L ABG pO2 ABG HCO3 ABG Base Excess ABG Hemoglobin VBG pH Oxyhemoglobin Sodium Potassium Chloride 112.4 H Carbon Dioxide 19 L BUN Creatinine Glucose 118 H POC Glucose Lactic Acid Calcium 8.0 L AST ALT Alkaline Phosphatase CK-MB (CK-2) CK-MB (CK-2) Rel Index Total Protein Albumin TSH Urine WBC (Auto) Salicylates 01/13/17 01/13/17 01/13/17 06:15 11:50 17:31 WBC RBC Hgb Hct MCV MCH RDW Plt Count Lymph % (Auto) Riley % (Auto) Eos % (Auto) Riley # Seg Neutrophils % Seg Neuts % (Manual) Lymphocytes % (Manual) Seg Neutrophils # Seg Neutrophils # Man Lymphocytes # (Manual) APTT POC ABG pH ABG pH POC ABG pCO2 POC ABG pO2 ABG pO2 ABG HCO3 ABG Base Excess ABG Hemoglobin VBG pH Oxyhemoglobin Sodium Potassium Chloride Carbon Dioxide BUN Creatinine Glucose POC Glucose 116 H 171 H 203 H Lactic Acid Calcium AST ALT Alkaline Phosphatase CK-MB (CK-2) CK-MB (CK-2) Rel Index Total Protein Albumin TSH Urine WBC (Auto) Salicylates 01/14/17 01/14/17 01/14/17 00:02 04:50 04:50 WBC RBC 3.32 L Hgb 8.5 L Hct 26.1 L MCV 79 L MCH 26 L RDW 18.2 H Plt Count Lymph % (Auto) Riley % (Auto) 9.0 H Eos % (Auto) Riley # Seg Neutrophils % Seg Neuts % (Manual) Lymphocytes % (Manual) Seg Neutrophils # Seg Neutrophils # Man Lymphocytes # (Manual) APTT POC ABG pH ABG pH POC ABG pCO2 POC ABG pO2 ABG pO2 ABG HCO3 ABG Base Excess ABG Hemoglobin VBG pH Oxyhemoglobin Sodium Potassium Chloride 112.5 H Carbon Dioxide BUN Creatinine Glucose 149 H POC Glucose 157 H Lactic Acid Calcium 8.1 L AST ALT Alkaline Phosphatase CK-MB (CK-2) CK-MB (CK-2) Rel Index Total Protein Albumin TSH Urine WBC (Auto) Salicylates 01/14/17 01/14/17 01/14/17 05:10 11:27 14:07 WBC RBC Hgb Hct MCV MCH RDW Plt Count Lymph % (Auto) Riley % (Auto) Eos % (Auto) Riley # Seg Neutrophils % Seg Neuts % (Manual) Lymphocytes % (Manual) Seg Neutrophils # Seg Neutrophils # Man Lymphocytes # (Manual) APTT POC ABG pH ABG pH POC ABG pCO2 POC ABG pO2 ABG pO2 ABG HCO3 ABG Base Excess ABG Hemoglobin VBG pH Oxyhemoglobin Sodium Potassium Chloride Carbon Dioxide BUN Creatinine Glucose POC Glucose 176 H 147 H Lactic Acid Calcium AST ALT Alkaline Phosphatase CK-MB (CK-2) CK-MB (CK-2) Rel Index Total Protein Albumin TSH Urine WBC (Auto) 53.0 H Salicylates 01/14/17 01/15/17 01/15/17 16:52 00:04 05:26 WBC RBC Hgb Hct MCV MCH RDW Plt Count Lymph % (Auto) Riley % (Auto) Eos % (Auto) Riley # Seg Neutrophils % Seg Neuts % (Manual) Lymphocytes % (Manual) Seg Neutrophils # Seg Neutrophils # Man Lymphocytes # (Manual) APTT POC ABG pH ABG pH POC ABG pCO2 POC ABG pO2 ABG pO2 ABG HCO3 ABG Base Excess ABG Hemoglobin VBG pH Oxyhemoglobin Sodium Potassium Chloride Carbon Dioxide BUN Creatinine Glucose POC Glucose 131 H 193 H 215 H Lactic Acid Calcium AST ALT Alkaline Phosphatase CK-MB (CK-2) CK-MB (CK-2) Rel Index Total Protein Albumin TSH Urine WBC (Auto) Salicylates 01/15/17 01/15/17 01/15/17 11:49 17:47 21:33 WBC RBC Hgb Hct MCV MCH RDW Plt Count Lymph % (Auto) Riley % (Auto) Eos % (Auto) Riley # Seg Neutrophils % Seg Neuts % (Manual) Lymphocytes % (Manual) Seg Neutrophils # Seg Neutrophils # Man Lymphocytes # (Manual) APTT POC ABG pH ABG pH POC ABG pCO2 POC ABG pO2 ABG pO2 ABG HCO3 ABG Base Excess ABG Hemoglobin VBG pH Oxyhemoglobin Sodium Potassium Chloride Carbon Dioxide BUN Creatinine Glucose POC Glucose 121 H 211 H 275 H Lactic Acid Calcium AST ALT Alkaline Phosphatase CK-MB (CK-2) CK-MB (CK-2) Rel Index Total Protein Albumin TSH Urine WBC (Auto) Salicylates 01/16/17 01/16/17 01/16/17 04:30 05:28 13:45 WBC RBC Hgb Hct MCV MCH RDW Plt Count Lymph % (Auto) Riley % (Auto) Eos % (Auto) Riley # Seg Neutrophils % Seg Neuts % (Manual) Lymphocytes % (Manual) Seg Neutrophils # Seg Neutrophils # Man Lymphocytes # (Manual) APTT POC ABG pH ABG pH 7.457 H POC ABG pCO2 POC ABG pO2 ABG pO2 55.1 L ABG HCO3 19.4 L ABG Base Excess -4.0 L ABG Hemoglobin 6.8 L VBG pH Oxyhemoglobin 94.9 L Sodium Potassium Chloride Carbon Dioxide BUN Creatinine Glucose POC Glucose 271 H 236 H Lactic Acid Calcium AST ALT Alkaline Phosphatase CK-MB (CK-2) CK-MB (CK-2) Rel Index Total Protein Albumin TSH Urine WBC (Auto) Salicylates 01/16/17 01/17/17 01/17/17 21:39 04:10 04:10 WBC 4.4 L RBC 2.98 L Hgb 7.7 L Hct 23.3 L MCV 78 L MCH 26 L RDW 18.1 H Plt Count Lymph % (Auto) Riley % (Auto) Eos % (Auto) Riley # Seg Neutrophils % Seg Neuts % (Manual) Lymphocytes % (Manual) Seg Neutrophils # Seg Neutrophils # Man Lymphocytes # (Manual) APTT POC ABG pH ABG pH POC ABG pCO2 POC ABG pO2 ABG pO2 ABG HCO3 ABG Base Excess ABG Hemoglobin VBG pH Oxyhemoglobin Sodium Potassium 3.3 L Chloride 108.7 H Carbon Dioxide 20 L BUN 8 L Creatinine Glucose 202 H POC Glucose 258 H Lactic Acid Calcium 7.6 L AST ALT Alkaline Phosphatase CK-MB (CK-2) CK-MB (CK-2) Rel Index Total Protein Albumin TSH Urine WBC (Auto) Salicylates 01/17/17 01/17/17 01/17/17 04:35 12:23 16:01 WBC RBC Hgb Hct MCV MCH RDW Plt Count Lymph % (Auto) Riley % (Auto) Eos % (Auto) Riley # Seg Neutrophils % Seg Neuts % (Manual) Lymphocytes % (Manual) Seg Neutrophils # Seg Neutrophils # Man Lymphocytes # (Manual) APTT POC ABG pH ABG pH POC ABG pCO2 POC ABG pO2 ABG pO2 160.3 H ABG HCO3 ABG Base Excess -2.3 L ABG Hemoglobin 7.9 L VBG pH Oxyhemoglobin Sodium Potassium Chloride Carbon Dioxide BUN Creatinine Glucose POC Glucose 321 H 239 H Lactic Acid Calcium AST ALT Alkaline Phosphatase CK-MB (CK-2) CK-MB (CK-2) Rel Index Total Protein Albumin TSH Urine WBC (Auto) Salicylates 01/18/17 01/18/17 01/18/17 05:07 12:09 17:54 WBC RBC Hgb Hct MCV MCH RDW Plt Count Lymph % (Auto) Riley % (Auto) Eos % (Auto) Riley # Seg Neutrophils % Seg Neuts % (Manual) Lymphocytes % (Manual) Seg Neutrophils # Seg Neutrophils # Man Lymphocytes # (Manual) APTT POC ABG pH ABG pH POC ABG pCO2 POC ABG pO2 ABG pO2 ABG HCO3 ABG Base Excess ABG Hemoglobin VBG pH Oxyhemoglobin Sodium Potassium Chloride Carbon Dioxide BUN Creatinine Glucose POC Glucose 155 H 203 H 132 H Lactic Acid Calcium AST ALT Alkaline Phosphatase CK-MB (CK-2) CK-MB (CK-2) Rel Index Total Protein Albumin TSH Urine WBC (Auto) Salicylates 01/18/17 01/19/17 01/19/17 23:43 04:28 12:11 WBC RBC Hgb Hct MCV MCH RDW Plt Count Lymph % (Auto) Riley % (Auto) Eos % (Auto) Riley # Seg Neutrophils % Seg Neuts % (Manual) Lymphocytes % (Manual) Seg Neutrophils # Seg Neutrophils # Man Lymphocytes # (Manual) APTT POC ABG pH ABG pH POC ABG pCO2 POC ABG pO2 ABG pO2 ABG HCO3 ABG Base Excess ABG Hemoglobin VBG pH Oxyhemoglobin Sodium Potassium Chloride Carbon Dioxide BUN Creatinine Glucose POC Glucose 125 H 182 H 153 H Lactic Acid Calcium AST ALT Alkaline Phosphatase CK-MB (CK-2) CK-MB (CK-2) Rel Index Total Protein Albumin TSH Urine WBC (Auto) Salicylates 01/19/17 01/20/17 01/20/17 17:23 00:12 05:44 WBC RBC Hgb Hct MCV MCH RDW Plt Count Lymph % (Auto) Riley % (Auto) Eos % (Auto) Riley # Seg Neutrophils % Seg Neuts % (Manual) Lymphocytes % (Manual) Seg Neutrophils # Seg Neutrophils # Man Lymphocytes # (Manual) APTT POC ABG pH ABG pH POC ABG pCO2 POC ABG pO2 ABG pO2 ABG HCO3 ABG Base Excess ABG Hemoglobin VBG pH Oxyhemoglobin Sodium Potassium Chloride Carbon Dioxide BUN Creatinine Glucose POC Glucose 66 L 139 H 176 H Lactic Acid Calcium AST ALT Alkaline Phosphatase CK-MB (CK-2) CK-MB (CK-2) Rel Index Total Protein Albumin TSH Urine WBC (Auto) Salicylates 01/20/17 01/20/17 01/20/17 11:48 17:42 23:43 WBC RBC Hgb Hct MCV MCH RDW Plt Count Lymph % (Auto) Riley % (Auto) Eos % (Auto) Riley # Seg Neutrophils % Seg Neuts % (Manual) Lymphocytes % (Manual) Seg Neutrophils # Seg Neutrophils # Man Lymphocytes # (Manual) APTT POC ABG pH ABG pH POC ABG pCO2 POC ABG pO2 ABG pO2 ABG HCO3 ABG Base Excess ABG Hemoglobin VBG pH Oxyhemoglobin Sodium Potassium Chloride Carbon Dioxide BUN Creatinine Glucose POC Glucose 218 H 132 H 178 H Lactic Acid Calcium AST ALT Alkaline Phosphatase CK-MB (CK-2) CK-MB (CK-2) Rel Index Total Protein Albumin TSH Urine WBC (Auto) Salicylates 01/21/17 01/21/17 01/21/17 05:34 11:17 23:37 WBC RBC Hgb Hct MCV MCH RDW Plt Count Lymph % (Auto) Riley % (Auto) Eos % (Auto) Riley # Seg Neutrophils % Seg Neuts % (Manual) Lymphocytes % (Manual) Seg Neutrophils # Seg Neutrophils # Man Lymphocytes # (Manual) APTT POC ABG pH ABG pH POC ABG pCO2 POC ABG pO2 ABG pO2 ABG HCO3 ABG Base Excess ABG Hemoglobin VBG pH Oxyhemoglobin Sodium Potassium Chloride Carbon Dioxide BUN Creatinine Glucose POC Glucose 106 H 213 H 140 H Lactic Acid Calcium AST ALT Alkaline Phosphatase CK-MB (CK-2) CK-MB (CK-2) Rel Index Total Protein Albumin TSH Urine WBC (Auto) Salicylates 01/22/17 01/22/17 01/22/17 04:00 04:00 04:58 WBC RBC 3.26 L Hgb 8.3 L Hct 25.5 L MCV 78 L MCH 25 L RDW 17.9 H Plt Count Lymph % (Auto) Riley % (Auto) 7.9 H Eos % (Auto) 6.2 H Riley # Seg Neutrophils % Seg Neuts % (Manual) Lymphocytes % (Manual) Seg Neutrophils # Seg Neutrophils # Man Lymphocytes # (Manual) APTT POC ABG pH ABG pH POC ABG pCO2 POC ABG pO2 ABG pO2 ABG HCO3 ABG Base Excess ABG Hemoglobin VBG pH Oxyhemoglobin Sodium Potassium Chloride 95.5 L Carbon Dioxide 31 H D BUN Creatinine Glucose 134 H POC Glucose 146 H Lactic Acid Calcium AST 44 H ALT Alkaline Phosphatase 379 H CK-MB (CK-2) CK-MB (CK-2) Rel Index Total Protein Albumin 2.7 L TSH Urine WBC (Auto) Salicylates 01/22/17 01/22/17 01/22/17 12:12 18:12 23:39 WBC RBC Hgb Hct MCV MCH RDW Plt Count Lymph % (Auto) Riley % (Auto) Eos % (Auto) Riley # Seg Neutrophils % Seg Neuts % (Manual) Lymphocytes % (Manual) Seg Neutrophils # Seg Neutrophils # Man Lymphocytes # (Manual) APTT POC ABG pH ABG pH POC ABG pCO2 POC ABG pO2 ABG pO2 ABG HCO3 ABG Base Excess ABG Hemoglobin VBG pH Oxyhemoglobin Sodium Potassium Chloride Carbon Dioxide BUN Creatinine Glucose POC Glucose 255 H 182 H 134 H Lactic Acid Calcium AST ALT Alkaline Phosphatase CK-MB (CK-2) CK-MB (CK-2) Rel Index Total Protein Albumin TSH Urine WBC (Auto) Salicylates 01/23/17 01/23/17 01/23/17 04:43 12:12 17:36 WBC RBC Hgb Hct MCV MCH RDW Plt Count Lymph % (Auto) Riley % (Auto) Eos % (Auto) Riley # Seg Neutrophils % Seg Neuts % (Manual) Lymphocytes % (Manual) Seg Neutrophils # Seg Neutrophils # Man Lymphocytes # (Manual) APTT POC ABG pH ABG pH POC ABG pCO2 POC ABG pO2 ABG pO2 ABG HCO3 ABG Base Excess ABG Hemoglobin VBG pH Oxyhemoglobin Sodium Potassium Chloride Carbon Dioxide BUN Creatinine Glucose POC Glucose 218 H 128 H 156 H Lactic Acid Calcium AST ALT Alkaline Phosphatase CK-MB (CK-2) CK-MB (CK-2) Rel Index Total Protein Albumin TSH Urine WBC (Auto) Salicylates 01/24/17 01/24/17 01/24/17 00:08 05:16 11:40 WBC RBC Hgb Hct MCV MCH RDW Plt Count Lymph % (Auto) Riley % (Auto) Eos % (Auto) Riley # Seg Neutrophils % Seg Neuts % (Manual) Lymphocytes % (Manual) Seg Neutrophils # Seg Neutrophils # Man Lymphocytes # (Manual) APTT POC ABG pH ABG pH POC ABG pCO2 POC ABG pO2 ABG pO2 ABG HCO3 ABG Base Excess ABG Hemoglobin VBG pH Oxyhemoglobin Sodium Potassium Chloride Carbon Dioxide BUN Creatinine Glucose POC Glucose 129 H 169 H 187 H Lactic Acid Calcium AST ALT Alkaline Phosphatase CK-MB (CK-2) CK-MB (CK-2) Rel Index Total Protein Albumin TSH Urine WBC (Auto) Salicylates 01/24/17 01/24/17 01/25/17 17:43 23:23 04:56 WBC RBC Hgb Hct MCV MCH RDW Plt Count Lymph % (Auto) Riley % (Auto) Eos % (Auto) Riley # Seg Neutrophils % Seg Neuts % (Manual) Lymphocytes % (Manual) Seg Neutrophils # Seg Neutrophils # Man Lymphocytes # (Manual) APTT POC ABG pH ABG pH POC ABG pCO2 POC ABG pO2 ABG pO2 ABG HCO3 ABG Base Excess ABG Hemoglobin VBG pH Oxyhemoglobin Sodium Potassium Chloride Carbon Dioxide BUN Creatinine Glucose POC Glucose 215 H 222 H 210 H Lactic Acid Calcium AST ALT Alkaline Phosphatase CK-MB (CK-2) CK-MB (CK-2) Rel Index Total Protein Albumin TSH Urine WBC (Auto) Salicylates 01/25/17 01/25/17 01/26/17 11:52 17:37 00:02 WBC RBC Hgb Hct MCV MCH RDW Plt Count Lymph % (Auto) Riley % (Auto) Eos % (Auto) Riley # Seg Neutrophils % Seg Neuts % (Manual) Lymphocytes % (Manual) Seg Neutrophils # Seg Neutrophils # Man Lymphocytes # (Manual) APTT POC ABG pH ABG pH POC ABG pCO2 POC ABG pO2 ABG pO2 ABG HCO3 ABG Base Excess ABG Hemoglobin VBG pH Oxyhemoglobin Sodium Potassium Chloride Carbon Dioxide BUN Creatinine Glucose POC Glucose 284 H 218 H 192 H Lactic Acid Calcium AST ALT Alkaline Phosphatase CK-MB (CK-2) CK-MB (CK-2) Rel Index Total Protein Albumin TSH Urine WBC (Auto) Salicylates 01/26/17 01/26/17 01/26/17 05:33 12:17 17:50 WBC RBC Hgb Hct MCV MCH RDW Plt Count Lymph % (Auto) Riley % (Auto) Eos % (Auto) Riley # Seg Neutrophils % Seg Neuts % (Manual) Lymphocytes % (Manual) Seg Neutrophils # Seg Neutrophils # Man Lymphocytes # (Manual) APTT POC ABG pH ABG pH POC ABG pCO2 POC ABG pO2 ABG pO2 ABG HCO3 ABG Base Excess ABG Hemoglobin VBG pH Oxyhemoglobin Sodium Potassium Chloride Carbon Dioxide BUN Creatinine Glucose POC Glucose 199 H 227 H 229 H Lactic Acid Calcium AST ALT Alkaline Phosphatase CK-MB (CK-2) CK-MB (CK-2) Rel Index Total Protein Albumin TSH Urine WBC (Auto) Salicylates 01/26/17 01/27/17 01/27/17 23:57 05:31 11:42 WBC RBC Hgb Hct MCV MCH RDW Plt Count Lymph % (Auto) Riley % (Auto) Eos % (Auto) Riley # Seg Neutrophils % Seg Neuts % (Manual) Lymphocytes % (Manual) Seg Neutrophils # Seg Neutrophils # Man Lymphocytes # (Manual) APTT POC ABG pH ABG pH POC ABG pCO2 POC ABG pO2 ABG pO2 ABG HCO3 ABG Base Excess ABG Hemoglobin VBG pH Oxyhemoglobin Sodium Potassium Chloride Carbon Dioxide BUN Creatinine Glucose POC Glucose 186 H 285 H 260 H Lactic Acid Calcium AST ALT Alkaline Phosphatase CK-MB (CK-2) CK-MB (CK-2) Rel Index Total Protein Albumin TSH Urine WBC (Auto) Salicylates 01/27/17 01/27/17 01/27/17 17:47 23:58 Unknown WBC 12.1 H RBC 3.28 L Hgb 8.5 L Hct 25.5 L MCV 78 L MCH 26 L RDW 16.8 H Plt Count 601 H Lymph % (Auto) Riley % (Auto) Eos % (Auto) Riley # Seg Neutrophils % Seg Neuts % (Manual) Lymphocytes % (Manual) Seg Neutrophils # Seg Neutrophils # Man Lymphocytes # (Manual) APTT POC ABG pH ABG pH POC ABG pCO2 POC ABG pO2 ABG pO2 ABG HCO3 ABG Base Excess ABG Hemoglobin VBG pH Oxyhemoglobin Sodium Potassium Chloride Carbon Dioxide BUN Creatinine Glucose POC Glucose 329 H 225 H Lactic Acid Calcium AST ALT Alkaline Phosphatase CK-MB (CK-2) CK-MB (CK-2) Rel Index Total Protein Albumin TSH Urine WBC (Auto) Salicylates 01/27/17 01/28/17 01/28/17 Unknown 03:44 03:44 WBC RBC 3.14 L Hgb 8.2 L Hct 24.1 L MCV 77 L MCH 26 L RDW 16.9 H Plt Count 567 H Lymph % (Auto) Riley % (Auto) Eos % (Auto) Riley # Seg Neutrophils % Seg Neuts % (Manual) Lymphocytes % (Manual) Seg Neutrophils # Seg Neutrophils # Man Lymphocytes # (Manual) APTT POC ABG pH ABG pH POC ABG pCO2 POC ABG pO2 ABG pO2 ABG HCO3 ABG Base Excess ABG Hemoglobin VBG pH Oxyhemoglobin Sodium 128 L Potassium 5.4 H Chloride 87.5 L Carbon Dioxide BUN 44 H 42 H Creatinine Glucose 250 H 128 H POC Glucose Lactic Acid Calcium AST ALT Alkaline Phosphatase CK-MB (CK-2) CK-MB (CK-2) Rel Index Total Protein Albumin TSH Urine WBC (Auto) Salicylates 01/28/17 01/28/17 01/28/17 11:43 16:47 17:52 WBC RBC Hgb Hct MCV MCH RDW Plt Count Lymph % (Auto) Riley % (Auto) Eos % (Auto) Riley # Seg Neutrophils % Seg Neuts % (Manual) Lymphocytes % (Manual) Seg Neutrophils # Seg Neutrophils # Man Lymphocytes # (Manual) APTT POC ABG pH ABG pH POC ABG pCO2 POC ABG pO2 ABG pO2 ABG HCO3 ABG Base Excess ABG Hemoglobin VBG pH Oxyhemoglobin Sodium Potassium Chloride Carbon Dioxide BUN Creatinine Glucose POC Glucose 351 H 249 H Lactic Acid Calcium AST ALT Alkaline Phosphatase CK-MB (CK-2) CK-MB (CK-2) Rel Index Total Protein Albumin TSH Urine WBC (Auto) > 182.0 H Salicylates 01/29/17 01/29/17 01/29/17 05:25 05:25 09:32 WBC 13.6 H RBC 3.25 L Hgb 8.3 L Hct 25.1 L MCV 77 L MCH 26 L RDW 16.8 H Plt Count 514 H Lymph % (Auto) Riley % (Auto) Eos % (Auto) Riley # Seg Neutrophils % Seg Neuts % (Manual) Lymphocytes % (Manual) Seg Neutrophils # Seg Neutrophils # Man Lymphocytes # (Manual) APTT POC ABG pH ABG pH POC ABG pCO2 POC ABG pO2 ABG pO2 ABG HCO3 ABG Base Excess ABG Hemoglobin VBG pH Oxyhemoglobin Sodium Potassium Chloride 97.8 L Carbon Dioxide BUN 34 H Creatinine Glucose 222 H POC Glucose Lactic Acid 2.50 H* Calcium AST ALT Alkaline Phosphatase CK-MB (CK-2) CK-MB (CK-2) Rel Index Total Protein Albumin TSH Urine WBC (Auto) Salicylates 01/29/17 01/29/17 01/29/17 11:56 18:11 23:55 WBC RBC Hgb Hct MCV MCH RDW Plt Count Lymph % (Auto) Riley % (Auto) Eos % (Auto) [place] # Seg Neutrophils % Seg Neuts % (Manual) Lymphocytes % (Manual) Seg Neutrophils # Seg Neutrophils # Man Lymphocytes # (Manual) APTT POC ABG pH ABG pH POC ABG pCO2 POC ABG pO2 ABG pO2 ABG HCO3 ABG Base Excess ABG Hemoglobin VBG pH Oxyhemoglobin Sodium Potassium Chloride Carbon Dioxide BUN Creatinine Glucose POC Glucose 261 H 215 H 176 H Lactic Acid Calcium AST ALT Alkaline Phosphatase CK-MB (CK-2) CK-MB (CK-2) Rel Index Total Protein Albumin TSH Urine WBC (Auto) Salicylates 01/30/17 01/30/17 01/30/17 05:31 05:31 05:34 WBC 15.2 H RBC 3.09 L Hgb 7.9 L Hct 23.9 L MCV 77 L MCH 26 L RDW 16.9 H Plt Count 569 H Lymph % (Auto) Riley % (Auto) Eos % (Auto) Riley # Seg Neutrophils % Seg Neuts % (Manual) Lymphocytes % (Manual) Seg Neutrophils # Seg Neutrophils # Man Lymphocytes # (Manual) APTT POC ABG pH ABG pH POC ABG pCO2 POC ABG pO2 ABG pO2 ABG HCO3 ABG Base Excess ABG Hemoglobin VBG pH Oxyhemoglobin Sodium Potassium Chloride Carbon Dioxide BUN 24 H Creatinine Glucose 235 H POC Glucose 243 H Lactic Acid Calcium AST ALT Alkaline Phosphatase CK-MB (CK-2) CK-MB (CK-2) Rel Index Total Protein Albumin TSH Urine WBC (Auto) Salicylates 01/30/17 01/30/17 01/30/17 11:38 17:58 23:29 WBC RBC Hgb Hct MCV MCH RDW Plt Count Lymph % (Auto) Riley % (Auto) Eos % (Auto) [place] # Seg Neutrophils % Seg Neuts % (Manual) Lymphocytes % (Manual) Seg Neutrophils # Seg Neutrophils # Man Lymphocytes # (Manual) APTT POC ABG pH ABG pH POC ABG pCO2 POC ABG pO2 ABG pO2 ABG HCO3 ABG Base Excess ABG Hemoglobin VBG pH Oxyhemoglobin Sodium Potassium Chloride Carbon Dioxide BUN Creatinine Glucose POC Glucose 298 H 208 H 245 H Lactic Acid Calcium AST ALT Alkaline Phosphatase CK-MB (CK-2) CK-MB (CK-2) Rel Index Total Protein Albumin TSH Urine WBC (Auto) Salicylates 01/31/17 01/31/17 01/31/17 04:39 04:39 05:57 WBC 11.4 H RBC 3.22 L Hgb 8.2 L Hct 24.9 L MCV 78 L MCH 25 L RDW 17.2 H Plt Count 576 H Lymph % (Auto) Riley % (Auto) Eos % (Auto) Riley # Seg Neutrophils % Seg Neuts % (Manual) Lymphocytes % (Manual) Seg Neutrophils # Seg Neutrophils # Man Lymphocytes # (Manual) APTT POC ABG pH ABG pH POC ABG pCO2 POC ABG pO2 ABG pO2 ABG HCO3 ABG Base Excess ABG Hemoglobin VBG pH Oxyhemoglobin Sodium Potassium Chloride Carbon Dioxide BUN Creatinine 0.7 L Glucose 223 H POC Glucose 264 H Lactic Acid Calcium AST ALT Alkaline Phosphatase CK-MB (CK-2) CK-MB (CK-2) Rel Index Total Protein Albumin TSH Urine WBC (Auto) Salicylates 01/31/17 01/31/17 01/31/17 12:23 17:41 18:55 WBC RBC Hgb Hct MCV MCH RDW Plt Count Lymph % (Auto) [place] % (Auto) Eos % (Auto) [place] # Seg Neutrophils % Seg Neuts % (Manual) Lymphocytes % (Manual) Seg Neutrophils # Seg Neutrophils # Man Lymphocytes # (Manual) APTT POC ABG pH ABG pH POC ABG pCO2 32.8 L POC ABG pO2 ABG pO2 ABG HCO3 ABG Base Excess ABG Hemoglobin VBG pH Oxyhemoglobin Sodium Potassium Chloride Carbon Dioxide BUN Creatinine Glucose POC Glucose 252 H 208 H Lactic Acid Calcium AST ALT Alkaline Phosphatase CK-MB (CK-2) CK-MB (CK-2) Rel Index Total Protein Albumin TSH Urine WBC (Auto) Salicylates 01/31/17 02/01/17 02/01/17 22:59 03:38 03:38 WBC RBC 2.81 L Hgb 7.4 L Hct 22.1 L MCV 79 L MCH 27 L RDW 17.0 H Plt Count 540 H Lymph % (Auto) Riley % (Auto) Eos % (Auto) [place] # Seg Neutrophils % Seg Neuts % (Manual) Lymphocytes % (Manual) Seg Neutrophils # Seg Neutrophils # Man Lymphocytes # (Manual) APTT POC ABG pH ABG pH POC ABG pCO2 POC ABG pO2 ABG pO2 ABG HCO3 ABG Base Excess ABG Hemoglobin VBG pH Oxyhemoglobin Sodium Potassium Chloride Carbon Dioxide 21 L BUN Creatinine 0.7 L Glucose POC Glucose 40 L Lactic Acid Calcium AST ALT Alkaline Phosphatase CK-MB (CK-2) CK-MB (CK-2) Rel Index Total Protein Albumin TSH Urine WBC (Auto) Salicylates 02/01/17 02/01/17 02/01/17 05:17 12:19 16:44 WBC RBC Hgb Hct MCV MCH RDW Plt Count Lymph % (Auto) Riley % (Auto) Eos % (Auto) [place] # Seg Neutrophils % Seg Neuts % (Manual) Lymphocytes % (Manual) Seg Neutrophils # Seg Neutrophils # Man Lymphocytes # (Manual) APTT POC ABG pH ABG pH POC ABG pCO2 POC ABG pO2 ABG pO2 ABG HCO3 ABG Base Excess ABG Hemoglobin VBG pH Oxyhemoglobin Sodium Potassium Chloride Carbon Dioxide BUN Creatinine Glucose POC Glucose 140 H 213 H 172 H Lactic Acid Calcium AST ALT Alkaline Phosphatase CK-MB (CK-2) CK-MB (CK-2) Rel Index Total Protein Albumin TSH Urine WBC (Auto) Salicylates 02/01/17 02/02/17 02/02/17 23:59 05:14 11:24 WBC RBC Hgb Hct MCV MCH RDW Plt Count Lymph % (Auto) Riley % (Auto) Eos % (Auto) [place] # Seg Neutrophils % Seg Neuts % (Manual) Lymphocytes % (Manual) Seg Neutrophils # Seg Neutrophils # Man Lymphocytes # (Manual) APTT POC ABG pH ABG pH POC ABG pCO2 POC ABG pO2 ABG pO2 ABG HCO3 ABG Base Excess ABG Hemoglobin VBG pH Oxyhemoglobin Sodium Potassium Chloride Carbon Dioxide BUN Creatinine Glucose POC Glucose 181 H 194 H 209 H Lactic Acid Calcium AST ALT Alkaline Phosphatase CK-MB (CK-2) CK-MB (CK-2) Rel Index Total Protein Albumin TSH Urine WBC (Auto) Salicylates 02/02/17 02/02/17 02/02/17 11:46 11:46 17:47 WBC RBC 2.94 L Hgb 7.5 L Hct 23.0 L MCV 78 L MCH 25 L RDW 16.9 H Plt Count 520 H Lymph % (Auto) Riley % (Auto) Eos % (Auto) [place] # Seg Neutrophils % Seg Neuts % (Manual) Lymphocytes % (Manual) Seg Neutrophils # Seg Neutrophils # Man Lymphocytes # (Manual) APTT POC ABG pH ABG pH POC ABG pCO2 POC ABG pO2 ABG pO2 ABG HCO3 ABG Base Excess ABG Hemoglobin VBG pH Oxyhemoglobin Sodium Potassium Chloride Carbon Dioxide BUN Creatinine 0.6 L Glucose 189 H POC Glucose 147 H Lactic Acid Calcium 8.1 L AST ALT Alkaline Phosphatase CK-MB (CK-2) CK-MB (CK-2) Rel Index Total Protein Albumin TSH Urine WBC (Auto) Salicylates 02/02/17 02/03/17 02/03/17 23:32 05:53 11:19 WBC RBC Hgb Hct MCV MCH RDW Plt Count Lymph % (Auto) Riley % (Auto) Eos % (Auto) [place] # Seg Neutrophils % Seg Neuts % (Manual) Lymphocytes % (Manual) Seg Neutrophils # Seg Neutrophils # Man Lymphocytes # (Manual) APTT POC ABG pH ABG pH POC ABG pCO2 POC ABG pO2 ABG pO2 ABG HCO3 ABG Base Excess ABG Hemoglobin VBG pH Oxyhemoglobin Sodium Potassium Chloride Carbon Dioxide BUN Creatinine Glucose POC Glucose 176 H 224 H 228 H Lactic Acid Calcium AST ALT Alkaline Phosphatase CK-MB (CK-2) CK-MB (CK-2) Rel Index Total Protein Albumin TSH Urine WBC (Auto) Salicylates 02/03/17 02/03/17 02/04/17 16:59 23:38 05:45 WBC RBC Hgb Hct MCV MCH RDW Plt Count Lymph % (Auto) Riley % (Auto) Eos % (Auto) [place] # Seg Neutrophils % Seg Neuts % (Manual) Lymphocytes % (Manual) Seg Neutrophils # Seg Neutrophils # Man Lymphocytes # (Manual) APTT POC ABG pH ABG pH POC ABG pCO2 POC ABG pO2 ABG pO2 ABG HCO3 ABG Base Excess ABG Hemoglobin VBG pH Oxyhemoglobin Sodium Potassium Chloride Carbon Dioxide BUN Creatinine Glucose POC Glucose 189 H 191 H 251 H Lactic Acid Calcium AST ALT Alkaline Phosphatase CK-MB (CK-2) CK-MB (CK-2) Rel Index Total Protein Albumin TSH Urine WBC (Auto) Salicylates 1002/04/17 02/05/17 11:20 17:20 00:17 WBC RBC Hgb Hct MCV MCH RDW Plt Count Lymph % (Auto) Riley % (Auto) Eos % (Auto) [place] # Seg Neutrophils % Seg Neuts % (Manual) Lymphocytes % (Manual) Seg Neutrophils # Seg Neutrophils # Man Lymphocytes # (Manual) APTT POC ABG pH ABG pH POC ABG pCO2 POC ABG pO2 ABG pO2 ABG HCO3 ABG Base Excess ABG Hemoglobin VBG pH Oxyhemoglobin Sodium Potassium Chloride Carbon Dioxide BUN Creatinine Glucose POC Glucose 243 H 163 H 200 H Lactic Acid Calcium AST ALT Alkaline Phosphatase CK-MB (CK-2) CK-MB (CK-2) Rel Index Total Protein Albumin TSH Urine WBC (Auto) Salicylates 02/05/17 02/05/17 02/05/17 05:38 12:38 16:29 WBC RBC Hgb Hct MCV MCH RDW Plt Count Lymph % (Auto) [place] % (Auto) Eos % (Auto) [place] # Seg Neutrophils % Seg Neuts % (Manual) Lymphocytes % (Manual) Seg Neutrophils # Seg Neutrophils # Man Lymphocytes # (Manual) APTT POC ABG pH ABG pH POC ABG pCO2 POC ABG pO2 ABG pO2 ABG HCO3 ABG Base Excess ABG Hemoglobin VBG pH Oxyhemoglobin Sodium Potassium Chloride Carbon Dioxide BUN Creatinine Glucose POC Glucose 248 H 241 H 257 H Lactic Acid Calcium AST ALT Alkaline Phosphatase CK-MB (CK-2) CK-MB (CK-2) Rel Index Total Protein Albumin TSH Urine WBC (Auto) Salicylates 02/05/17 02/06/17 02/06/17 23:56 05:30 11:50 WBC RBC Hgb Hct MCV MCH RDW Plt Count Lymph % (Auto) Riley % (Auto) Eos % (Auto) [place] # Seg Neutrophils % Seg Neuts % (Manual) Lymphocytes % (Manual) Seg Neutrophils # Seg Neutrophils # Man Lymphocytes # (Manual) APTT POC ABG pH ABG pH POC ABG pCO2 POC ABG pO2 ABG pO2 ABG HCO3 ABG Base Excess ABG Hemoglobin VBG pH Oxyhemoglobin Sodium Potassium Chloride Carbon Dioxide BUN Creatinine Glucose POC Glucose 258 H 120 H 254 H Lactic Acid Calcium AST ALT Alkaline Phosphatase CK-MB (CK-2) CK-MB (CK-2) Rel Index Total Protein Albumin TSH Urine WBC (Auto) Salicylates 02/06/17 02/06/17 02/07/17 17:11 23:50 05:22 WBC RBC Hgb Hct MCV MCH RDW Plt Count Lymph % (Auto) Riley % (Auto) Eos % (Auto) [place] # Seg Neutrophils % Seg Neuts % (Manual) Lymphocytes % (Manual) Seg Neutrophils # Seg Neutrophils # Man Lymphocytes # (Manual) APTT POC ABG pH ABG pH POC ABG pCO2 POC ABG pO2 ABG pO2 ABG HCO3 ABG Base Excess ABG Hemoglobin VBG pH Oxyhemoglobin Sodium Potassium Chloride Carbon Dioxide BUN Creatinine Glucose POC Glucose 149 H 240 H 258 H Lactic Acid Calcium AST ALT Alkaline Phosphatase CK-MB (CK-2) CK-MB (CK-2) Rel Index Total Protein Albumin TSH Urine WBC (Auto) Salicylates 02/07/17 02/07/17 02/07/17 11:15 18:33 23:59 WBC RBC Hgb Hct MCV MCH RDW Plt Count Lymph % (Auto) Riley % (Auto) Eos % (Auto) [place] # Seg Neutrophils % Seg Neuts % (Manual) Lymphocytes % (Manual) Seg Neutrophils # Seg Neutrophils # Man Lymphocytes # (Manual) APTT POC ABG pH ABG pH POC ABG pCO2 POC ABG pO2 ABG pO2 ABG HCO3 ABG Base Excess ABG Hemoglobin VBG pH Oxyhemoglobin Sodium Potassium Chloride Carbon Dioxide BUN Creatinine Glucose POC Glucose 239 H 176 H 186 H Lactic Acid Calcium AST ALT Alkaline Phosphatase CK-MB (CK-2) CK-MB (CK-2) Rel Index Total Protein Albumin TSH Urine WBC (Auto) Salicylates 02/08/17 02/08/17 02/08/17 06:15 11:55 16:55 WBC RBC Hgb Hct MCV MCH RDW Plt Count Lymph % (Auto) Riley % (Auto) Eos % (Auto) [place] # Seg Neutrophils % Seg Neuts % (Manual) Lymphocytes % (Manual) Seg Neutrophils # Seg Neutrophils # Man Lymphocytes # (Manual) APTT POC ABG pH ABG pH POC ABG pCO2 POC ABG pO2 ABG pO2 ABG HCO3 ABG Base Excess ABG Hemoglobin VBG pH Oxyhemoglobin Sodium Potassium Chloride Carbon Dioxide BUN Creatinine Glucose POC Glucose 195 H 129 H 246 H Lactic Acid Calcium AST ALT Alkaline Phosphatase CK-MB (CK-2) CK-MB (CK-2) Rel Index Total Protein Albumin TSH Urine WBC (Auto) Salicylates 02/08/17 02/09/17 02/09/17 23:51 05:51 07:24 WBC 14.7 H RBC 3.39 L Hgb 8.9 L Hct 26.4 L MCV 78 L MCH 26 L RDW 18.4 H Plt Count 670 H Lymph % (Auto) 11.8 L Riley % (Auto) Eos % (Auto) Riley # Seg Neutrophils % 81.2 H Seg Neuts % (Manual) Lymphocytes % (Manual) Seg Neutrophils # 11.9 H Seg Neutrophils # Man Lymphocytes # (Manual) APTT POC ABG pH ABG pH POC ABG pCO2 POC ABG pO2 ABG pO2 ABG HCO3 ABG Base Excess ABG Hemoglobin VBG pH Oxyhemoglobin Sodium Potassium Chloride Carbon Dioxide BUN Creatinine Glucose POC Glucose 262 H 295 H Lactic Acid Calcium AST ALT Alkaline Phosphatase CK-MB (CK-2) CK-MB (CK-2) Rel Index Total Protein Albumin TSH Urine WBC (Auto) Salicylates 02/09/17 02/09/17 02/09/17 07:24 12:08 18:39 WBC RBC Hgb Hct MCV MCH RDW Plt Count Lymph % (Auto) [place] % (Auto) Eos % (Auto) [place] # Seg Neutrophils % Seg Neuts % (Manual) Lymphocytes % (Manual) Seg Neutrophils # Seg Neutrophils # Man Lymphocytes # (Manual) APTT POC ABG pH ABG pH POC ABG pCO2 POC ABG pO2 ABG pO2 ABG HCO3 ABG Base Excess ABG Hemoglobin VBG pH Oxyhemoglobin Sodium Potassium Chloride 95.5 L Carbon Dioxide BUN 52 H Creatinine Glucose 277 H POC Glucose 236 H 151 H Lactic Acid Calcium AST ALT Alkaline Phosphatase CK-MB (CK-2) CK-MB (CK-2) Rel Index Total Protein Albumin TSH Urine WBC (Auto) Salicylates 02/10/17 02/10/17 02/10/17 00:01 05:44 11:21 WBC RBC Hgb Hct MCV MCH RDW Plt Count Lymph % (Auto) Riley % (Auto) Eos % (Auto) [place] # Seg Neutrophils % Seg Neuts % (Manual) Lymphocytes % (Manual) Seg Neutrophils # Seg Neutrophils # Man Lymphocytes # (Manual) APTT POC ABG pH ABG pH POC ABG pCO2 POC ABG pO2 ABG pO2 ABG HCO3 ABG Base Excess ABG Hemoglobin VBG pH Oxyhemoglobin Sodium Potassium Chloride Carbon Dioxide BUN Creatinine Glucose POC Glucose 210 H 201 H 233 H Lactic Acid Calcium AST ALT Alkaline Phosphatase CK-MB (CK-2) CK-MB (CK-2) Rel Index Total Protein Albumin TSH Urine WBC (Auto) Salicylates 02/10/17 02/10/17 02/11/17 17:29 23:56 05:24 WBC RBC Hgb Hct MCV MCH RDW Plt Count Lymph % (Auto) [place] % (Auto) Eos % (Auto) [place] # Seg Neutrophils % Seg Neuts % (Manual) Lymphocytes % (Manual) Seg Neutrophils # Seg Neutrophils # Man Lymphocytes # (Manual) APTT POC ABG pH ABG pH POC ABG pCO2 POC ABG pO2 ABG pO2 ABG HCO3 ABG Base Excess ABG Hemoglobin VBG pH Oxyhemoglobin Sodium Potassium Chloride Carbon Dioxide BUN Creatinine Glucose POC Glucose 167 H 191 H 135 H Lactic Acid Calcium AST ALT Alkaline Phosphatase CK-MB (CK-2) CK-MB (CK-2) Rel Index Total Protein Albumin TSH Urine WBC (Auto) Salicylates 02/11/17 02/11/17 02/11/17 12:25 17:03 23:59 WBC RBC Hgb Hct MCV MCH RDW Plt Count Lymph % (Auto) [place] % (Auto) Eos % (Auto) [place] # Seg Neutrophils % Seg Neuts % (Manual) Lymphocytes % (Manual) Seg Neutrophils # Seg Neutrophils # Man Lymphocytes # (Manual) APTT POC ABG pH ABG pH POC ABG pCO2 POC ABG pO2 ABG pO2 ABG HCO3 ABG Base Excess ABG Hemoglobin VBG pH Oxyhemoglobin Sodium Potassium Chloride Carbon Dioxide BUN Creatinine Glucose POC Glucose 275 H 172 H 215 H Lactic Acid Calcium AST ALT Alkaline Phosphatase CK-MB (CK-2) CK-MB (CK-2) Rel Index Total Protein Albumin TSH Urine WBC (Auto) Salicylates 02/12/17 02/12/17 02/12/17 05:39 11:33 17:55 WBC RBC Hgb Hct MCV MCH RDW Plt Count Lymph % (Auto) [place] % (Auto) Eos % (Auto) [place] # Seg Neutrophils % Seg Neuts % (Manual) Lymphocytes % (Manual) Seg Neutrophils # Seg Neutrophils # Man Lymphocytes # (Manual) APTT POC ABG pH ABG pH POC ABG pCO2 POC ABG pO2 ABG pO2 ABG HCO3 ABG Base Excess ABG Hemoglobin VBG pH Oxyhemoglobin Sodium Potassium Chloride Carbon Dioxide BUN Creatinine Glucose POC Glucose 261 H 217 H 172 H Lactic Acid Calcium AST ALT Alkaline Phosphatase CK-MB (CK-2) CK-MB (CK-2) Rel Index Total Protein Albumin TSH Urine WBC (Auto) Salicylates 02/13/17 02/13/17 02/13/17 00:25 06:46 11:26 WBC RBC Hgb Hct MCV MCH RDW Plt Count Lymph % (Auto) [place] % (Auto) Eos % (Auto) [place] # Seg Neutrophils % Seg Neuts % (Manual) Lymphocytes % (Manual) Seg Neutrophils # Seg Neutrophils # Man Lymphocytes # (Manual) APTT POC ABG pH ABG pH POC ABG pCO2 POC ABG pO2 ABG pO2 ABG HCO3 ABG Base Excess ABG Hemoglobin VBG pH Oxyhemoglobin Sodium Potassium Chloride Carbon Dioxide BUN Creatinine Glucose POC Glucose 207 H 219 H 231 H Lactic Acid Calcium AST ALT Alkaline Phosphatase CK-MB (CK-2) CK-MB (CK-2) Rel Index Total Protein Albumin TSH Urine WBC (Auto) Salicylates 02/13/17 02/13/17 02/14/17 17:12 23:44 05:44 WBC RBC Hgb Hct MCV MCH RDW Plt Count Lymph % (Auto) [place] % (Auto) Eos % (Auto) [place] # Seg Neutrophils % Seg Neuts % (Manual) Lymphocytes % (Manual) Seg Neutrophils # Seg Neutrophils # Man Lymphocytes # (Manual) APTT POC ABG pH ABG pH POC ABG pCO2 POC ABG pO2 ABG pO2 ABG HCO3 ABG Base Excess ABG Hemoglobin VBG pH Oxyhemoglobin Sodium Potassium Chloride Carbon Dioxide BUN Creatinine Glucose POC Glucose 190 H 256 H 184 H Lactic Acid Calcium AST ALT Alkaline Phosphatase CK-MB (CK-2) CK-MB (CK-2) Rel Index Total Protein Albumin TSH Urine WBC (Auto) Salicylates 02/14/17 02/14/17 02/14/17 12:21 17:57 23:18 WBC RBC Hgb Hct MCV MCH RDW Plt Count Lymph % (Auto) [place] % (Auto) Eos % (Auto) [place] # Seg Neutrophils % Seg Neuts % (Manual) Lymphocytes % (Manual) Seg Neutrophils # Seg Neutrophils # Man Lymphocytes # (Manual) APTT POC ABG pH ABG pH POC ABG pCO2 POC ABG pO2 ABG pO2 ABG HCO3 ABG Base Excess ABG Hemoglobin VBG pH Oxyhemoglobin Sodium Potassium Chloride Carbon Dioxide BUN Creatinine Glucose POC Glucose 233 H 155 H 165 H Lactic Acid Calcium AST ALT Alkaline Phosphatase CK-MB (CK-2) CK-MB (CK-2) Rel Index Total Protein Albumin TSH Urine WBC (Auto) Salicylates 02/15/17 02/15/17 02/15/17 05:33 11:45 17:20 WBC RBC Hgb Hct MCV MCH RDW Plt Count Lymph % (Auto) [place] % (Auto) Eos % (Auto) [place] # Seg Neutrophils % Seg Neuts % (Manual) Lymphocytes % (Manual) Seg Neutrophils # Seg Neutrophils # Man Lymphocytes # (Manual) APTT POC ABG pH ABG pH POC ABG pCO2 POC ABG pO2 ABG pO2 ABG HCO3 ABG Base Excess ABG Hemoglobin VBG pH Oxyhemoglobin Sodium Potassium Chloride Carbon Dioxide BUN Creatinine Glucose POC Glucose 239 H 130 H 189 H Lactic Acid Calcium AST ALT Alkaline Phosphatase CK-MB (CK-2) CK-MB (CK-2) Rel Index Total Protein Albumin TSH Urine WBC (Auto) Salicylates 02/16/17 02/16/17 02/16/17 00:14 05:09 12:31 WBC RBC Hgb Hct MCV MCH RDW Plt Count Lymph % (Auto) [place] % (Auto) Eos % (Auto) [place] # Seg Neutrophils % Seg Neuts % (Manual) Lymphocytes % (Manual) Seg Neutrophils # Seg Neutrophils # Man Lymphocytes # (Manual) APTT POC ABG pH ABG pH POC ABG pCO2 POC ABG pO2 ABG pO2 ABG HCO3 ABG Base Excess ABG Hemoglobin VBG pH Oxyhemoglobin Sodium Potassium Chloride Carbon Dioxide BUN Creatinine Glucose POC Glucose 197 H 226 H 178 H Lactic Acid Calcium AST ALT Alkaline Phosphatase CK-MB (CK-2) CK-MB (CK-2) Rel Index Total Protein Albumin TSH Urine WBC (Auto) Salicylates 02/16/17 02/16/17 02/17/17 16:35 23:49 05:37 WBC RBC Hgb Hct MCV MCH RDW Plt Count Lymph % (Auto) [place] % (Auto) Eos % (Auto) [place] # Seg Neutrophils % Seg Neuts % (Manual) Lymphocytes % (Manual) Seg Neutrophils # Seg Neutrophils # Man Lymphocytes # (Manual) APTT POC ABG pH ABG pH POC ABG pCO2 POC ABG pO2 ABG pO2 ABG HCO3 ABG Base Excess ABG Hemoglobin VBG pH Oxyhemoglobin Sodium Potassium Chloride Carbon Dioxide BUN Creatinine Glucose POC Glucose 174 H 62 L 153 H Lactic Acid Calcium AST ALT Alkaline Phosphatase CK-MB (CK-2) CK-MB (CK-2) Rel Index Total Protein Albumin TSH Urine WBC (Auto) Salicylates 02/17/17 02/17/17 02/17/17 11:39 17:02 22:24 WBC RBC Hgb Hct MCV MCH RDW Plt Count Lymph % (Auto) [place] % (Auto) Eos % (Auto) [place] # Seg Neutrophils % Seg Neuts % (Manual) Lymphocytes % (Manual) Seg Neutrophils # Seg Neutrophils # Man Lymphocytes # (Manual) APTT POC ABG pH ABG pH POC ABG pCO2 POC ABG pO2 ABG pO2 ABG HCO3 ABG Base Excess ABG Hemoglobin VBG pH Oxyhemoglobin Sodium Potassium Chloride Carbon Dioxide BUN Creatinine Glucose POC Glucose 231 H 112 H 116 H Lactic Acid Calcium AST ALT Alkaline Phosphatase CK-MB (CK-2) CK-MB (CK-2) Rel Index Total Protein Albumin TSH Urine WBC (Auto) Salicylates 02/18/17 02/19/17 02/19/17 15:34 05:09 07:57 WBC RBC Hgb Hct MCV MCH RDW Plt Count Lymph % (Auto) [place] % (Auto) Eos % (Auto) [place] # Seg Neutrophils % Seg Neuts % (Manual) Lymphocytes % (Manual) Seg Neutrophils # Seg Neutrophils # Man Lymphocytes # (Manual) APTT POC ABG pH ABG pH POC ABG pCO2 POC ABG pO2 ABG pO2 ABG HCO3 ABG Base Excess ABG Hemoglobin VBG pH Oxyhemoglobin Sodium Potassium Chloride Carbon Dioxide BUN Creatinine Glucose POC Glucose 215 H 218 H 283 H Lactic Acid Calcium AST ALT Alkaline Phosphatase CK-MB (CK-2) CK-MB (CK-2) Rel Index Total Protein Albumin TSH Urine WBC (Auto) Salicylates 02/19/17 02/19/17 02/20/17 14:49 22:10 05:10 WBC RBC Hgb Hct MCV MCH RDW Plt Count Lymph % (Auto) [place] % (Auto) Eos % (Auto) [place] # Seg Neutrophils % Seg Neuts % (Manual) Lymphocytes % (Manual) Seg Neutrophils # Seg Neutrophils # Man Lymphocytes # (Manual) APTT POC ABG pH ABG pH POC ABG pCO2 POC ABG pO2 ABG pO2 ABG HCO3 ABG Base Excess ABG Hemoglobin VBG pH Oxyhemoglobin Sodium Potassium Chloride Carbon Dioxide BUN Creatinine Glucose POC Glucose 290 H 169 H 209 H Lactic Acid Calcium AST ALT Alkaline Phosphatase CK-MB (CK-2) CK-MB (CK-2) Rel Index Total Protein Albumin TSH Urine WBC (Auto) Salicylates 02/20/17 02/20/17 02/21/17 15:05 21:52 02:00 WBC RBC Hgb Hct MCV MCH RDW Plt Count Lymph % (Auto) Riley % (Auto) Eos % (Auto) Riley # Seg Neutrophils % Seg Neuts % (Manual) Lymphocytes % (Manual) Seg Neutrophils # Seg Neutrophils # Man Lymphocytes # (Manual) APTT POC ABG pH ABG pH POC ABG pCO2 POC ABG pO2 ABG pO2 ABG HCO3 ABG Base Excess ABG Hemoglobin VBG pH Oxyhemoglobin Sodium Potassium Chloride Carbon Dioxide BUN Creatinine Glucose POC Glucose 172 H 209 H 216 H Lactic Acid Calcium AST ALT Alkaline Phosphatase CK-MB (CK-2) CK-MB (CK-2) Rel Index Total Protein Albumin TSH Urine WBC (Auto) Salicylates 02/21/17 02/21/17 02/21/17 04:54 14:43 17:47 WBC RBC Hgb Hct MCV MCH RDW Plt Count Lymph % (Auto) Riley % (Auto) Eos % (Auto) Riley # Seg Neutrophils % Seg Neuts % (Manual) Lymphocytes % (Manual) Seg Neutrophils # Seg Neutrophils # Man Lymphocytes # (Manual) APTT POC ABG pH ABG pH POC ABG pCO2 POC ABG pO2 ABG pO2 ABG HCO3 ABG Base Excess ABG Hemoglobin VBG pH Oxyhemoglobin Sodium Potassium Chloride Carbon Dioxide BUN Creatinine Glucose POC Glucose 227 H 290 H 220 H Lactic Acid Calcium AST ALT Alkaline Phosphatase CK-MB (CK-2) CK-MB (CK-2) Rel Index Total Protein Albumin TSH Urine WBC (Auto) Salicylates 02/21/17 02/22/17 02/22/17 22:02 04:52 15:25 WBC RBC Hgb Hct MCV MCH RDW Plt Count Lymph % (Auto) Riley % (Auto) Eos % (Auto) Riley # Seg Neutrophils % Seg Neuts % (Manual) Lymphocytes % (Manual) Seg Neutrophils # Seg Neutrophils # Man Lymphocytes # (Manual) APTT POC ABG pH ABG pH POC ABG pCO2 POC ABG pO2 ABG pO2 ABG HCO3 ABG Base Excess ABG Hemoglobin VBG pH Oxyhemoglobin Sodium Potassium Chloride Carbon Dioxide BUN Creatinine Glucose POC Glucose 246 H 212 H 236 H Lactic Acid Calcium AST ALT Alkaline Phosphatase CK-MB (CK-2) CK-MB (CK-2) Rel Index Total Protein Albumin TSH Urine WBC (Auto) Salicylates 02/22/17 02/23/17 02/23/17 21:33 06:04 10:00 WBC RBC Hgb Hct MCV MCH RDW Plt Count Lymph % (Auto) Riley % (Auto) Eos % (Auto) Riley # Seg Neutrophils % Seg Neuts % (Manual) Lymphocytes % (Manual) Seg Neutrophils # Seg Neutrophils # Man Lymphocytes # (Manual) APTT POC ABG pH ABG pH POC ABG pCO2 POC ABG pO2 ABG pO2 ABG HCO3 ABG Base Excess ABG Hemoglobin VBG pH Oxyhemoglobin Sodium Potassium Chloride Carbon Dioxide BUN Creatinine Glucose POC Glucose 255 H 208 H 174 H Lactic Acid Calcium AST ALT Alkaline Phosphatase CK-MB (CK-2) CK-MB (CK-2) Rel Index Total Protein Albumin TSH Urine WBC (Auto) Salicylates 02/23/17 02/23/17 02/23/17 12:52 17:15 21:51 WBC RBC Hgb Hct MCV MCH RDW Plt Count Lymph % (Auto) Riley % (Auto) Eos % (Auto) Riley # Seg Neutrophils % Seg Neuts % (Manual) Lymphocytes % (Manual) Seg Neutrophils # Seg Neutrophils # Man Lymphocytes # (Manual) APTT POC ABG pH ABG pH POC ABG pCO2 POC ABG pO2 ABG pO2 ABG HCO3 ABG Base Excess ABG Hemoglobin VBG pH Oxyhemoglobin Sodium Potassium Chloride Carbon Dioxide BUN Creatinine Glucose POC Glucose 203 H 269 H 205 H Lactic Acid Calcium AST ALT Alkaline Phosphatase CK-MB (CK-2) CK-MB (CK-2) Rel Index Total Protein Albumin TSH Urine WBC (Auto) Salicylates 02/24/17 02/24/17 02/24/17 10:23 17:45 21:24 WBC RBC Hgb Hct MCV MCH RDW Plt Count Lymph % (Auto) Riley % (Auto) Eos % (Auto) Riley # Seg Neutrophils % Seg Neuts % (Manual) Lymphocytes % (Manual) Seg Neutrophils # Seg Neutrophils # Man Lymphocytes # (Manual) APTT POC ABG pH ABG pH POC ABG pCO2 POC ABG pO2 ABG pO2 ABG HCO3 ABG Base Excess ABG Hemoglobin VBG pH Oxyhemoglobin Sodium Potassium Chloride Carbon Dioxide BUN Creatinine Glucose POC Glucose 280 H 239 H 254 H Lactic Acid Calcium AST ALT Alkaline Phosphatase CK-MB (CK-2) CK-MB (CK-2) Rel Index Total Protein Albumin TSH Urine WBC (Auto) Salicylates 02/25/17 02/25/17 02/25/17 02:12 05:17 14:32 WBC RBC Hgb Hct MCV MCH RDW Plt Count Lymph % (Auto) Riley % (Auto) Eos % (Auto) Riley # Seg Neutrophils % Seg Neuts % (Manual) Lymphocytes % (Manual) Seg Neutrophils # Seg Neutrophils # Man Lymphocytes # (Manual) APTT POC ABG pH ABG pH POC ABG pCO2 POC ABG pO2 ABG pO2 ABG HCO3 ABG Base Excess ABG Hemoglobin VBG pH Oxyhemoglobin Sodium Potassium Chloride Carbon Dioxide BUN Creatinine Glucose POC Glucose 296 H 332 H 353 H Lactic Acid Calcium AST ALT Alkaline Phosphatase CK-MB (CK-2) CK-MB (CK-2) Rel Index Total Protein Albumin TSH Urine WBC (Auto) Salicylates 02/25/17 02/26/17 02/26/17 22:14 00:37 05:52 WBC RBC Hgb Hct MCV MCH RDW Plt Count Lymph % (Auto) Riley % (Auto) Eos % (Auto) Riley # Seg Neutrophils % Seg Neuts % (Manual) Lymphocytes % (Manual) Seg Neutrophils # Seg Neutrophils # Man Lymphocytes # (Manual) APTT POC ABG pH ABG pH POC ABG pCO2 POC ABG pO2 ABG pO2 ABG HCO3 ABG Base Excess ABG Hemoglobin VBG pH Oxyhemoglobin Sodium Potassium Chloride Carbon Dioxide BUN Creatinine Glucose POC Glucose 201 H 233 H 269 H Lactic Acid Calcium AST ALT Alkaline Phosphatase CK-MB (CK-2) CK-MB (CK-2) Rel Index Total Protein Albumin TSH Urine WBC (Auto) Salicylates 02/26/17 02/26/17 02/26/17 11:48 13:49 21:26 WBC RBC Hgb Hct MCV MCH RDW Plt Count Lymph % (Auto) Riley % (Auto) Eos % (Auto) Riley # Seg Neutrophils % Seg Neuts % (Manual) Lymphocytes % (Manual) Seg Neutrophils # Seg Neutrophils # Man Lymphocytes # (Manual) APTT POC ABG pH ABG pH POC ABG pCO2 POC ABG pO2 ABG pO2 ABG HCO3 ABG Base Excess ABG Hemoglobin VBG pH Oxyhemoglobin Sodium Potassium Chloride Carbon Dioxide BUN Creatinine Glucose POC Glucose 333 H 322 H 244 H Lactic Acid Calcium AST ALT Alkaline Phosphatase CK-MB (CK-2) CK-MB (CK-2) Rel Index Total Protein Albumin TSH Urine WBC (Auto) Salicylates 02/27/17 02/27/17 02/27/17 05:27 13:51 21:48 WBC RBC Hgb Hct MCV MCH RDW Plt Count Lymph % (Auto) Riley % (Auto) Eos % (Auto) Riley # Seg Neutrophils % Seg Neuts % (Manual) Lymphocytes % (Manual) Seg Neutrophils # Seg Neutrophils # Man Lymphocytes # (Manual) APTT POC ABG pH ABG pH POC ABG pCO2 POC ABG pO2 ABG pO2 ABG HCO3 ABG Base Excess ABG Hemoglobin VBG pH Oxyhemoglobin Sodium Potassium Chloride Carbon Dioxide BUN Creatinine Glucose POC Glucose 217 H 239 H 254 H Lactic Acid Calcium AST ALT Alkaline Phosphatase CK-MB (CK-2) CK-MB (CK-2) Rel Index Total Protein Albumin TSH Urine WBC (Auto) Salicylates 02/28/17 02/28/17 02/28/17 05:38 11:00 19:44 WBC RBC Hgb Hct MCV MCH RDW Plt Count Lymph % (Auto) Riley % (Auto) Eos % (Auto) Riley # Seg Neutrophils % Seg Neuts % (Manual) Lymphocytes % (Manual) Seg Neutrophils # Seg Neutrophils # Man Lymphocytes # (Manual) APTT POC ABG pH ABG pH POC ABG pCO2 POC ABG pO2 ABG pO2 ABG HCO3 ABG Base Excess ABG Hemoglobin VBG pH Oxyhemoglobin Sodium Potassium Chloride Carbon Dioxide BUN Creatinine Glucose POC Glucose 325 H 203 H 116 H Lactic Acid Calcium AST ALT Alkaline Phosphatase CK-MB (CK-2) CK-MB (CK-2) Rel Index Total Protein Albumin TSH Urine WBC (Auto) Salicylates 03/01/17 03/01/17 03/01/17 00:08 05:31 12:17 WBC RBC Hgb Hct MCV MCH RDW Plt Count Lymph % (Auto) Riley % (Auto) Eos % (Auto) Riley # Seg Neutrophils % Seg Neuts % (Manual) Lymphocytes % (Manual) Seg Neutrophils # Seg Neutrophils # Man Lymphocytes # (Manual) APTT POC ABG pH ABG pH POC ABG pCO2 POC ABG pO2 ABG pO2 ABG HCO3 ABG Base Excess ABG Hemoglobin VBG pH Oxyhemoglobin Sodium Potassium Chloride Carbon Dioxide BUN Creatinine Glucose POC Glucose 202 H 183 H 184 H Lactic Acid Calcium AST ALT Alkaline Phosphatase CK-MB (CK-2) CK-MB (CK-2) Rel Index Total Protein Albumin TSH Urine WBC (Auto) Salicylates 03/02/17 03/02/17 03/02/17 00:12 05:58 18:22 WBC RBC Hgb Hct MCV MCH RDW Plt Count Lymph % (Auto) Riley % (Auto) Eos % (Auto) Riley # Seg Neutrophils % Seg Neuts % (Manual) Lymphocytes % (Manual) Seg Neutrophils # Seg Neutrophils # Man Lymphocytes # (Manual) APTT POC ABG pH ABG pH POC ABG pCO2 POC ABG pO2 ABG pO2 ABG HCO3 ABG Base Excess ABG Hemoglobin VBG pH Oxyhemoglobin Sodium Potassium Chloride Carbon Dioxide BUN Creatinine Glucose POC Glucose 117 H 176 H 156 H Lactic Acid Calcium AST ALT Alkaline Phosphatase CK-MB (CK-2) CK-MB (CK-2) Rel Index Total Protein Albumin TSH Urine WBC (Auto) Salicylates 03/02/17 03/03/17 03/03/17 23:51 05:44 11:32 WBC RBC Hgb Hct MCV MCH RDW Plt Count Lymph % (Auto) [place] % (Auto) Eos % (Auto) Riley # Seg Neutrophils % Seg Neuts % (Manual) Lymphocytes % (Manual) Seg Neutrophils # Seg Neutrophils # Man Lymphocytes # (Manual) APTT POC ABG pH ABG pH POC ABG pCO2 POC ABG pO2 ABG pO2 ABG HCO3 ABG Base Excess ABG Hemoglobin VBG pH Oxyhemoglobin Sodium Potassium Chloride Carbon Dioxide BUN Creatinine Glucose POC Glucose 211 H 117 H 133 H Lactic Acid Calcium AST ALT Alkaline Phosphatase CK-MB (CK-2) CK-MB (CK-2) Rel Index Total Protein Albumin TSH Urine WBC (Auto) Salicylates 03/03/17 03/03/17 03/04/17 17:43 23:17 05:30 WBC RBC Hgb Hct MCV MCH RDW Plt Count Lymph % (Auto) Riley % (Auto) Eos % (Auto) Riley # Seg Neutrophils % Seg Neuts % (Manual) Lymphocytes % (Manual) Seg Neutrophils # Seg Neutrophils # Man Lymphocytes # (Manual) APTT POC ABG pH ABG pH POC ABG pCO2 POC ABG pO2 ABG pO2 ABG HCO3 ABG Base Excess ABG Hemoglobin VBG pH Oxyhemoglobin Sodium Potassium Chloride Carbon Dioxide BUN Creatinine Glucose POC Glucose 206 H 170 H 126 H Lactic Acid Calcium AST ALT Alkaline Phosphatase CK-MB (CK-2) CK-MB (CK-2) Rel Index Total Protein Albumin TSH Urine WBC (Auto) Salicylates 03/04/17 03/04/17 03/05/17 12:17 17:27 05:20 WBC RBC Hgb Hct MCV MCH RDW Plt Count Lymph % (Auto) Riley % (Auto) Eos % (Auto) Riley # Seg Neutrophils % Seg Neuts % (Manual) Lymphocytes % (Manual) Seg Neutrophils # Seg Neutrophils # Man Lymphocytes # (Manual) APTT POC ABG pH ABG pH POC ABG pCO2 POC ABG pO2 ABG pO2 ABG HCO3 ABG Base Excess ABG Hemoglobin VBG pH Oxyhemoglobin Sodium Potassium Chloride Carbon Dioxide BUN Creatinine Glucose POC Glucose 135 H 121 H 185 H Lactic Acid Calcium AST ALT Alkaline Phosphatase CK-MB (CK-2) CK-MB (CK-2) Rel Index Total Protein Albumin TSH Urine WBC (Auto) Salicylates 03/05/17 03/06/17 03/06/17 11:50 11:52 17:34 WBC RBC Hgb Hct MCV MCH RDW Plt Count Lymph % (Auto) Riley % (Auto) Eos % (Auto) Riley # Seg Neutrophils % Seg Neuts % (Manual) Lymphocytes % (Manual) Seg Neutrophils # Seg Neutrophils # Man Lymphocytes # (Manual) APTT POC ABG pH ABG pH POC ABG pCO2 POC ABG pO2 ABG pO2 ABG HCO3 ABG Base Excess ABG Hemoglobin VBG pH Oxyhemoglobin Sodium Potassium Chloride Carbon Dioxide BUN Creatinine Glucose POC Glucose 116 H 133 H 181 H Lactic Acid Calcium AST ALT Alkaline Phosphatase CK-MB (CK-2) CK-MB (CK-2) Rel Index Total Protein Albumin TSH Urine WBC (Auto) Salicylates 03/07/17 03/07/17 03/07/17 05:21 11:36 17:49 WBC RBC Hgb Hct MCV MCH RDW Plt Count Lymph % (Auto) Riley % (Auto) Eos % (Auto) Riley # Seg Neutrophils % Seg Neuts % (Manual) Lymphocytes % (Manual) Seg Neutrophils # Seg Neutrophils # Man Lymphocytes # (Manual) APTT POC ABG pH ABG pH POC ABG pCO2 POC ABG pO2 ABG pO2 ABG HCO3 ABG Base Excess ABG Hemoglobin VBG pH Oxyhemoglobin Sodium Potassium Chloride Carbon Dioxide BUN Creatinine Glucose POC Glucose 159 H 137 H 158 H Lactic Acid Calcium AST ALT Alkaline Phosphatase CK-MB (CK-2) CK-MB (CK-2) Rel Index Total Protein Albumin TSH Urine WBC (Auto) Salicylates 03/08/17 03/08/17 03/08/17 05:51 13:58 23:50 WBC RBC Hgb Hct MCV MCH RDW Plt Count Lymph % (Auto) Riley % (Auto) Eos % (Auto) Riley # Seg Neutrophils % Seg Neuts % (Manual) Lymphocytes % (Manual) Seg Neutrophils # Seg Neutrophils # Man Lymphocytes # (Manual) APTT POC ABG pH ABG pH POC ABG pCO2 POC ABG pO2 ABG pO2 ABG HCO3 ABG Base Excess ABG Hemoglobin VBG pH Oxyhemoglobin Sodium Potassium Chloride Carbon Dioxide BUN Creatinine Glucose POC Glucose 122 H 182 H 114 H Lactic Acid Calcium AST ALT Alkaline Phosphatase CK-MB (CK-2) CK-MB (CK-2) Rel Index Total Protein Albumin TSH Urine WBC (Auto) Salicylates 03/09/17 03/09/17 03/09/17 05:21 05:51 05:51 WBC RBC 3.61 L Hgb 9.5 L Hct 28.3 L MCV 79 L MCH 26 L RDW 17.8 H Plt Count Lymph % (Auto) Riley % (Auto) Eos % (Auto) Riley # Seg Neutrophils % Seg Neuts % (Manual) Lymphocytes % (Manual) Seg Neutrophils # Seg Neutrophils # Man Lymphocytes # (Manual) APTT POC ABG pH ABG pH POC ABG pCO2 POC ABG pO2 ABG pO2 ABG HCO3 ABG Base Excess ABG Hemoglobin VBG pH Oxyhemoglobin Sodium 134 L Potassium Chloride 95.5 L Carbon Dioxide BUN 33 H Creatinine 0.5 L Glucose 143 H POC Glucose 153 H Lactic Acid Calcium AST ALT Alkaline Phosphatase CK-MB (CK-2) CK-MB (CK-2) Rel Index Total Protein Albumin TSH Urine WBC (Auto) Salicylates 03/09/17 03/09/17 03/09/17 12:10 18:13 21:00 WBC RBC Hgb Hct MCV MCH RDW Plt Count Lymph % (Auto) Riley % (Auto) Eos % (Auto) Riley # Seg Neutrophils % Seg Neuts % (Manual) Lymphocytes % (Manual) Seg Neutrophils # Seg Neutrophils # Man Lymphocytes # (Manual) APTT POC ABG pH ABG pH POC ABG pCO2 POC ABG pO2 ABG pO2 ABG HCO3 ABG Base Excess ABG Hemoglobin VBG pH Oxyhemoglobin Sodium Potassium Chloride Carbon Dioxide BUN Creatinine Glucose POC Glucose 203 H 221 H 198 H Lactic Acid Calcium AST ALT Alkaline Phosphatase CK-MB (CK-2) CK-MB (CK-2) Rel Index Total Protein Albumin TSH Urine WBC (Auto) Salicylates 03/09/17 03/10/17 03/10/17 23:58 05:09 05:09 WBC RBC Hgb 10.3 L Hct 30.5 L MCV 78 L MCH 26 L RDW 17.9 H Plt Count Lymph % (Auto) Riley % (Auto) 10.0 H Eos % (Auto) 6.0 H Riley # Seg Neutrophils % Seg Neuts % (Manual) Lymphocytes % (Manual) Seg Neutrophils # Seg Neutrophils # Man Lymphocytes # (Manual) APTT POC ABG pH ABG pH POC ABG pCO2 POC ABG pO2 ABG pO2 ABG HCO3 ABG Base Excess ABG Hemoglobin VBG pH Oxyhemoglobin Sodium 132 L Potassium Chloride 92.2 L Carbon Dioxide BUN 33 H Creatinine 0.5 L Glucose 50 L POC Glucose 167 H Lactic Acid Calcium AST ALT Alkaline Phosphatase CK-MB (CK-2) CK-MB (CK-2) Rel Index Total Protein Albumin TSH Urine WBC (Auto) Salicylates 03/10/17 03/10/17 03/10/17 05:33 05:34 11:48 WBC RBC Hgb Hct MCV MCH RDW Plt Count Lymph % (Auto) Riley % (Auto) Eos % (Auto) Riley # Seg Neutrophils % Seg Neuts % (Manual) Lymphocytes % (Manual) Seg Neutrophils # Seg Neutrophils # Man Lymphocytes # (Manual) APTT POC ABG pH ABG pH POC ABG pCO2 POC ABG pO2 ABG pO2 ABG HCO3 ABG Base Excess ABG Hemoglobin VBG pH Oxyhemoglobin Sodium Potassium Chloride Carbon Dioxide BUN Creatinine Glucose POC Glucose 52 L 53 L 148 H Lactic Acid Calcium AST ALT Alkaline Phosphatase CK-MB (CK-2) CK-MB (CK-2) Rel Index Total Protein Albumin TSH Urine WBC (Auto) Salicylates 03/10/17 03/10/1703/11/17 17:53 23:47 05:18 WBC RBC Hgb Hct MCV MCH RDW Plt Count Lymph % (Auto) Riley % (Auto) Eos % (Auto) Riley # Seg Neutrophils % Seg Neuts % (Manual) Lymphocytes % (Manual) Seg Neutrophils # Seg Neutrophils # Man Lymphocytes # (Manual) APTT POC ABG pH ABG pH POC ABG pCO2 POC ABG pO2 ABG pO2 ABG HCO3 ABG Base Excess ABG Hemoglobin VBG pH Oxyhemoglobin Sodium Potassium Chloride Carbon Dioxide BUN Creatinine Glucose POC Glucose 189 H 398 H 126 H Lactic Acid Calcium AST ALT Alkaline Phosphatase CK-MB (CK-2) CK-MB (CK-2) Rel Index Total Protein Albumin TSH Urine WBC (Auto) Salicylates 03/11/17 03/11/17 03/11/17 11:53 17:30 23:10 WBC RBC Hgb Hct MCV MCH RDW Plt Count Lymph % (Auto) Riley % (Auto) Eos % (Auto) Riley # Seg Neutrophils % Seg Neuts % (Manual) Lymphocytes % (Manual) Seg Neutrophils # Seg Neutrophils # Man Lymphocytes # (Manual) APTT POC ABG pH ABG pH POC ABG pCO2 POC ABG pO2 ABG pO2 ABG HCO3 ABG Base Excess ABG Hemoglobin VBG pH Oxyhemoglobin Sodium Potassium Chloride Carbon Dioxide BUN Creatinine Glucose POC Glucose 198 H 142 H 244 H Lactic Acid Calcium AST ALT Alkaline Phosphatase CK-MB (CK-2) CK-MB (CK-2) Rel Index Total Protein Albumin TSH Urine WBC (Auto) Salicylates 03/12/17 03/12/17 03/12/17 04:36 11:49 17:23 WBC RBC Hgb Hct MCV MCH RDW Plt Count Lymph % (Auto) Riley % (Auto) Eos % (Auto) Riley # Seg Neutrophils % Seg Neuts % (Manual) Lymphocytes % (Manual) Seg Neutrophils # Seg Neutrophils # Man Lymphocytes # (Manual) APTT POC ABG pH ABG pH POC ABG pCO2 POC ABG pO2 ABG pO2 ABG HCO3 ABG Base Excess ABG Hemoglobin VBG pH Oxyhemoglobin Sodium Potassium Chloride Carbon Dioxide BUN Creatinine Glucose POC Glucose 205 H 197 H 209 H Lactic Acid Calcium AST ALT Alkaline Phosphatase CK-MB (CK-2) CK-MB (CK-2) Rel Index Total Protein Albumin TSH Urine WBC (Auto) Salicylates 03/12/17 03/13/17 03/13/17 23:51 05:32 11:43 WBC RBC Hgb Hct MCV MCH RDW Plt Count Lymph % (Auto) Riley % (Auto) Eos % (Auto) Riley # Seg Neutrophils % Seg Neuts % (Manual) Lymphocytes % (Manual) Seg Neutrophils # Seg Neutrophils # Man Lymphocytes # (Manual) APTT POC ABG pH ABG pH POC ABG pCO2 POC ABG pO2 ABG pO2 ABG HCO3 ABG Base Excess ABG Hemoglobin VBG pH Oxyhemoglobin Sodium Potassium Chloride Carbon Dioxide BUN Creatinine Glucose POC Glucose 210 H 154 H 164 H Lactic Acid Calcium AST ALT Alkaline Phosphatase CK-MB (CK-2) CK-MB (CK-2) Rel Index Total Protein Albumin TSH Urine WBC (Auto) Salicylates 03/13/17 03/13/17 03/14/17 17:11 23:26 05:42 WBC RBC Hgb Hct MCV MCH RDW Plt Count Lymph % (Auto) Riley % (Auto) Eos % (Auto) Riley # Seg Neutrophils % Seg Neuts % (Manual) Lymphocytes % (Manual) Seg Neutrophils # Seg Neutrophils # Man Lymphocytes # (Manual) APTT POC ABG pH ABG pH POC ABG pCO2 POC ABG pO2 ABG pO2 ABG HCO3 ABG Base Excess ABG Hemoglobin VBG pH Oxyhemoglobin Sodium Potassium Chloride Carbon Dioxide BUN Creatinine Glucose POC Glucose 195 H 240 H 230 H Lactic Acid Calcium AST ALT Alkaline Phosphatase CK-MB (CK-2) CK-MB (CK-2) Rel Index Total Protein Albumin TSH Urine WBC (Auto) Salicylates 03/14/17 03/14/17 03/14/17 14:04 17:34 23:42 WBC RBC Hgb Hct MCV MCH RDW Plt Count Lymph % (Auto) [place] % (Auto) Eos % (Auto) Riley # Seg Neutrophils % Seg Neuts % (Manual) Lymphocytes % (Manual) Seg Neutrophils # Seg Neutrophils # Man Lymphocytes # (Manual) APTT POC ABG pH ABG pH POC ABG pCO2 POC ABG pO2 ABG pO2 ABG HCO3 ABG Base Excess ABG Hemoglobin VBG pH Oxyhemoglobin Sodium Potassium Chloride Carbon Dioxide BUN Creatinine Glucose POC Glucose 227 H 186 H 225 H Lactic Acid Calcium AST ALT Alkaline Phosphatase CK-MB (CK-2) CK-MB (CK-2) Rel Index Total Protein Albumin TSH Urine WBC (Auto) Salicylates 03/15/17 03/15/17 03/15/17 05:21 17:13 21:37 WBC RBC Hgb Hct MCV MCH RDW Plt Count Lymph % (Auto) Riley % (Auto) Eos % (Auto) Riley # Seg Neutrophils % Seg Neuts % (Manual) Lymphocytes % (Manual) Seg Neutrophils # Seg Neutrophils # Man Lymphocytes # (Manual) APTT POC ABG pH ABG pH POC ABG pCO2 POC ABG pO2 ABG pO2 ABG HCO3 ABG Base Excess ABG Hemoglobin VBG pH Oxyhemoglobin Sodium Potassium Chloride Carbon Dioxide BUN Creatinine Glucose POC Glucose 244 H 203 H 216 H Lactic Acid Calcium AST ALT Alkaline Phosphatase CK-MB (CK-2) CK-MB (CK-2) Rel Index Total Protein Albumin TSH Urine WBC (Auto) Salicylates 03/16/17 03/16/17 03/16/17 05:52 18:07 21:54 WBC RBC Hgb Hct MCV MCH RDW Plt Count Lymph % (Auto) Riley % (Auto) Eos % (Auto) Riley # Seg Neutrophils % Seg Neuts % (Manual) Lymphocytes % (Manual) Seg Neutrophils # Seg Neutrophils # Man Lymphocytes # (Manual) APTT POC ABG pH ABG pH POC ABG pCO2 POC ABG pO2 ABG pO2 ABG HCO3 ABG Base Excess ABG Hemoglobin VBG pH Oxyhemoglobin Sodium Potassium Chloride Carbon Dioxide BUN Creatinine Glucose POC Glucose 248 H 254 H 244 H Lactic Acid Calcium AST ALT Alkaline Phosphatase CK-MB (CK-2) CK-MB (CK-2) Rel Index Total Protein Albumin TSH Urine WBC (Auto) Salicylates 03/17/17 03/17/17 03/17/17 07:07 07:42 07:43 WBC RBC Hgb 9.7 L Hct 29.1 L MCV 78 L MCH 26 L RDW 17.4 H Plt Count Lymph % (Auto) Riley % (Auto) Eos % (Auto) Riley # Seg Neutrophils % Seg Neuts % (Manual) Lymphocytes % (Manual) Seg Neutrophils # Seg Neutrophils # Man Lymphocytes # (Manual) APTT POC ABG pH ABG pH POC ABG pCO2 POC ABG pO2 ABG pO2 ABG HCO3 ABG Base Excess ABG Hemoglobin VBG pH Oxyhemoglobin Sodium Potassium Chloride 96.6 L Carbon Dioxide BUN 30 H Creatinine 0.5 L Glucose 251 H POC Glucose 222 H Lactic Acid Calcium AST ALT Alkaline Phosphatase CK-MB (CK-2) CK-MB (CK-2) Rel Index Total Protein Albumin TSH Urine WBC (Auto) Salicylates 03/17/17 03/17/17 03/18/17 14:08 21:20 14:24 WBC RBC Hgb Hct MCV MCH RDW Plt Count Lymph % (Auto) Riley % (Auto) Eos % (Auto) Riley # Seg Neutrophils % Seg Neuts % (Manual) Lymphocytes % (Manual) Seg Neutrophils # Seg Neutrophils # Man Lymphocytes # (Manual) APTT POC ABG pH ABG pH POC ABG pCO2 POC ABG pO2 ABG pO2 ABG HCO3 ABG Base Excess ABG Hemoglobin VBG pH Oxyhemoglobin Sodium Potassium Chloride Carbon Dioxide BUN Creatinine Glucose POC Glucose 281 H 239 H 195 H Lactic Acid Calcium AST ALT Alkaline Phosphatase CK-MB (CK-2) CK-MB (CK-2) Rel Index Total Protein Albumin TSH Urine WBC (Auto) Salicylates 03/18/17 03/19/17 03/19/17 21:37 04:57 14:23 WBC RBC Hgb Hct MCV MCH RDW Plt Count Lymph % (Auto) Riley % (Auto) Eos % (Auto) Riley # Seg Neutrophils % Seg Neuts % (Manual) Lymphocytes % (Manual) Seg Neutrophils # Seg Neutrophils # Man Lymphocytes # (Manual) APTT POC ABG pH ABG pH POC ABG pCO2 POC ABG pO2 ABG pO2 ABG HCO3 ABG Base Excess ABG Hemoglobin VBG pH Oxyhemoglobin Sodium Potassium Chloride Carbon Dioxide BUN Creatinine Glucose POC Glucose 227 H 205 H 277 H Lactic Acid Calcium AST ALT Alkaline Phosphatase CK-MB (CK-2) CK-MB (CK-2) Rel Index Total Protein Albumin TSH Urine WBC (Auto) Salicylates 03/19/17 03/19/17 03/20/17 20:31 21:47 04:55 WBC RBC Hgb Hct MCV MCH RDW Plt Count Lymph % (Auto) Riley % (Auto) Eos % (Auto) Riley # Seg Neutrophils % Seg Neuts % (Manual) Lymphocytes % (Manual) Seg Neutrophils # Seg Neutrophils # Man Lymphocytes # (Manual) APTT POC ABG pH ABG pH POC ABG pCO2 POC ABG pO2 ABG pO2 ABG HCO3 ABG Base Excess ABG Hemoglobin VBG pH Oxyhemoglobin Sodium Potassium Chloride Carbon Dioxide BUN Creatinine Glucose POC Glucose 256 H 270 H 202 H Lactic Acid Calcium AST ALT Alkaline Phosphatase CK-MB (CK-2) CK-MB (CK-2) Rel Index Total Protein Albumin TSH Urine WBC (Auto) Salicylates 03/20/17 03/20/17 03/21/17 14:09 21:40 05:09 WBC RBC Hgb Hct MCV MCH RDW Plt Count Lymph % (Auto) Riley % (Auto) Eos % (Auto) Riley # Seg Neutrophils % Seg Neuts % (Manual) Lymphocytes % (Manual) Seg Neutrophils # Seg Neutrophils # Man Lymphocytes # (Manual) APTT POC ABG pH ABG pH POC ABG pCO2 POC ABG pO2 ABG pO2 ABG HCO3 ABG Base Excess ABG Hemoglobin VBG pH Oxyhemoglobin Sodium Potassium Chloride Carbon Dioxide BUN Creatinine Glucose POC Glucose 200 H 214 H 233 H Lactic Acid Calcium AST ALT Alkaline Phosphatase CK-MB (CK-2) CK-MB (CK-2) Rel Index Total Protein Albumin TSH Urine WBC (Auto) Salicylates 03/21/17 03/21/17 03/22/17 14:06 21:26 05:43 WBC RBC Hgb Hct MCV MCH RDW Plt Count Lymph % (Auto) Riley % (Auto) Eos % (Auto) Riley # Seg Neutrophils % Seg Neuts % (Manual) Lymphocytes % (Manual) Seg Neutrophils # Seg Neutrophils # Man Lymphocytes # (Manual) APTT POC ABG pH ABG pH POC ABG pCO2 POC ABG pO2 ABG pO2 ABG HCO3 ABG Base Excess ABG Hemoglobin VBG pH Oxyhemoglobin Sodium Potassium Chloride Carbon Dioxide BUN Creatinine Glucose POC Glucose 250 H 155 H 251 H Lactic Acid Calcium AST ALT Alkaline Phosphatase CK-MB (CK-2) CK-MB (CK-2) Rel Index Total Protein Albumin TSH Urine WBC (Auto) Salicylates 03/22/17 03/22/17 03/23/17 13:46 21:16 00:23 WBC RBC Hgb Hct MCV MCH RDW Plt Count Lymph % (Auto) Riley % (Auto) Eos % (Auto) Riley # Seg Neutrophils % Seg Neuts % (Manual) Lymphocytes % (Manual) Seg Neutrophils # Seg Neutrophils # Man Lymphocytes # (Manual) APTT POC ABG pH ABG pH POC ABG pCO2 POC ABG pO2 ABG pO2 ABG HCO3 ABG Base Excess ABG Hemoglobin VBG pH Oxyhemoglobin Sodium Potassium Chloride Carbon Dioxide BUN Creatinine Glucose POC Glucose 269 H 197 H 126 H Lactic Acid Calcium AST ALT Alkaline Phosphatase CK-MB (CK-2) CK-MB (CK-2) Rel Index Total Protein Albumin TSH Urine WBC (Auto) Salicylates 03/23/17 03/23/17 03/23/17 05:39 14:06 21:39 WBC RBC Hgb Hct MCV MCH RDW Plt Count Lymph % (Auto) Riley % (Auto) Eos % (Auto) Riley # Seg Neutrophils % Seg Neuts % (Manual) Lymphocytes % (Manual) Seg Neutrophils # Seg Neutrophils # Man Lymphocytes # (Manual) APTT POC ABG pH ABG pH POC ABG pCO2 POC ABG pO2 ABG pO2 ABG HCO3 ABG Base Excess ABG Hemoglobin VBG pH Oxyhemoglobin Sodium Potassium Chloride Carbon Dioxide BUN Creatinine Glucose POC Glucose 234 H 241 H 248 H Lactic Acid Calcium AST ALT Alkaline Phosphatase CK-MB (CK-2) CK-MB (CK-2) Rel Index Total Protein Albumin TSH Urine WBC (Auto) Salicylates 03/24/17 03/24/17 03/25/17 05:06 21:46 05:38 WBC RBC Hgb Hct MCV MCH RDW Plt Count Lymph % (Auto) Riley % (Auto) Eos % (Auto) Riley # Seg Neutrophils % Seg Neuts % (Manual) Lymphocytes % (Manual) Seg Neutrophils # Seg Neutrophils # Man Lymphocytes # (Manual) APTT POC ABG pH ABG pH POC ABG pCO2 POC ABG pO2 ABG pO2 ABG HCO3 ABG Base Excess ABG Hemoglobin VBG pH Oxyhemoglobin Sodium Potassium Chloride Carbon Dioxide BUN Creatinine Glucose POC Glucose 232 H 276 H 242 H Lactic Acid Calcium AST ALT Alkaline Phosphatase CK-MB (CK-2) CK-MB (CK-2) Rel Index Total Protein Albumin TSH Urine WBC (Auto) Salicylates 03/25/17 03/25/17 03/26/17 14:30 23:14 13:53 WBC RBC Hgb Hct MCV MCH RDW Plt Count Lymph % (Auto) Riley % (Auto) Eos % (Auto) Riley # Seg Neutrophils % Seg Neuts % (Manual) Lymphocytes % (Manual) Seg Neutrophils # Seg Neutrophils # Man Lymphocytes # (Manual) APTT POC ABG pH ABG pH POC ABG pCO2 POC ABG pO2 ABG pO2 ABG HCO3 ABG Base Excess ABG Hemoglobin VBG pH Oxyhemoglobin Sodium Potassium Chloride Carbon Dioxide BUN Creatinine Glucose POC Glucose 246 H 208 H 195 H Lactic Acid Calcium AST ALT Alkaline Phosphatase CK-MB (CK-2) CK-MB (CK-2) Rel Index Total Protein Albumin TSH Urine WBC (Auto) Salicylates 03/26/17 03/27/17 03/27/17 21:58 05:18 14:57 WBC RBC Hgb Hct MCV MCH RDW Plt Count Lymph % (Auto) Riley % (Auto) Eos % (Auto) Riley # Seg Neutrophils % Seg Neuts % (Manual) Lymphocytes % (Manual) Seg Neutrophils # Seg Neutrophils # Man Lymphocytes # (Manual) APTT POC ABG pH ABG pH POC ABG pCO2 POC ABG pO2 ABG pO2 ABG HCO3 ABG Base Excess ABG Hemoglobin VBG pH Oxyhemoglobin Sodium Potassium Chloride Carbon Dioxide BUN Creatinine Glucose POC Glucose 241 H 199 H 269 H Lactic Acid Calcium AST ALT Alkaline Phosphatase CK-MB (CK-2) CK-MB (CK-2) Rel Index Total Protein Albumin TSH Urine WBC (Auto) Salicylates 03/27/17 03/28/17 03/28/17 21:33 13:52 21:29 WBC RBC Hgb Hct MCV MCH RDW Plt Count Lymph % (Auto) Riley % (Auto) Eos % (Auto) Riley # Seg Neutrophils % Seg Neuts % (Manual) Lymphocytes % (Manual) Seg Neutrophils # Seg Neutrophils # Man Lymphocytes # (Manual) APTT POC ABG pH ABG pH POC ABG pCO2 POC ABG pO2 ABG pO2 ABG HCO3 ABG Base Excess ABG Hemoglobin VBG pH Oxyhemoglobin Sodium Potassium Chloride Carbon Dioxide BUN Creatinine Glucose POC Glucose 214 H 243 H 286 H Lactic Acid Calcium AST ALT Alkaline Phosphatase CK-MB (CK-2) CK-MB (CK-2) Rel Index Total Protein Albumin TSH Urine WBC (Auto) Salicylates 03/29/17 03/29/17 03/29/17 04:32 04:32 13:58 WBC RBC Hgb 10.6 L Hct 32.9 L MCV 78 L MCH 25 L RDW 17.6 H Plt Count Lymph % (Auto) 38.0 H Riley % (Auto) 9.7 H Eos % (Auto) Riley # Seg Neutrophils % Seg Neuts % (Manual) Lymphocytes % (Manual) Seg Neutrophils # Seg Neutrophils # Man Lymphocytes # (Manual) APTT POC ABG pH ABG pH POC ABG pCO2 POC ABG pO2 ABG pO2 ABG HCO3 ABG Base Excess ABG Hemoglobin VBG pH Oxyhemoglobin Sodium 132 L Potassium Chloride 94.0 L Carbon Dioxide BUN 28 H Creatinine 0.5 L Glucose 236 H POC Glucose 171 H Lactic Acid Calcium AST ALT 71 H Alkaline Phosphatase 391 H CK-MB (CK-2) CK-MB (CK-2) Rel Index Total Protein 8.3 H Albumin 2.9 L TSH Urine WBC (Auto) Salicylates 03/29/17 03/30/17 03/30/17 20:59 06:07 11:52 WBC RBC Hgb Hct MCV MCH RDW Plt Count Lymph % (Auto) Riley % (Auto) Eos % (Auto) Riley # Seg Neutrophils % Seg Neuts % (Manual) Lymphocytes % (Manual) Seg Neutrophils # Seg Neutrophils # Man Lymphocytes # (Manual) APTT POC ABG pH ABG pH POC ABG pCO2 POC ABG pO2 ABG pO2 ABG HCO3 ABG Base Excess ABG Hemoglobin VBG pH Oxyhemoglobin Sodium Potassium Chloride Carbon Dioxide BUN Creatinine Glucose POC Glucose 215 H 259 H 197 H Lactic Acid Calcium AST ALT Alkaline Phosphatase CK-MB (CK-2) CK-MB (CK-2) Rel Index Total Protein Albumin TSH Urine WBC (Auto) Salicylates 03/30/17 03/31/17 03/31/17 21:34 05:42 14:34 WBC RBC Hgb Hct MCV MCH RDW Plt Count Lymph % (Auto) Riley % (Auto) Eos % (Auto) Riley # Seg Neutrophils % Seg Neuts % (Manual) Lymphocytes % (Manual) Seg Neutrophils # Seg Neutrophils # Man Lymphocytes # (Manual) APTT POC ABG pH ABG pH POC ABG pCO2 POC ABG pO2 ABG pO2 ABG HCO3 ABG Base Excess ABG Hemoglobin VBG pH Oxyhemoglobin Sodium Potassium Chloride Carbon Dioxide BUN Creatinine Glucose POC Glucose 207 H 184 H 213 H Lactic Acid Calcium AST ALT Alkaline Phosphatase CK-MB (CK-2) CK-MB (CK-2) Rel Index Total Protein Albumin TSH Urine WBC (Auto) Salicylates 03/31/17 04/01/17 04/01/17 21:32 05:53 13:48 WBC RBC Hgb Hct MCV MCH RDW Plt Count Lymph % (Auto) Riley % (Auto) Eos % (Auto) Riley # Seg Neutrophils % Seg Neuts % (Manual) Lymphocytes % (Manual) Seg Neutrophils # Seg Neutrophils # Man Lymphocytes # (Manual) APTT POC ABG pH ABG pH POC ABG pCO2 POC ABG pO2 ABG pO2 ABG HCO3 ABG Base Excess ABG Hemoglobin VBG pH Oxyhemoglobin Sodium Potassium Chloride Carbon Dioxide BUN Creatinine Glucose POC Glucose 249 H 225 H 256 H Lactic Acid Calcium AST ALT Alkaline Phosphatase CK-MB (CK-2) CK-MB (CK-2) Rel Index Total Protein Albumin TSH Urine WBC (Auto) Salicylates 04/01/17 04/02/17 04/02/17 21:34 05:32 14:05 WBC RBC Hgb Hct MCV MCH RDW Plt Count Lymph % (Auto) Riley % (Auto) Eos % (Auto) Riley # Seg Neutrophils % Seg Neuts % (Manual) Lymphocytes % (Manual) Seg Neutrophils # Seg Neutrophils # Man Lymphocytes # (Manual) APTT POC ABG pH ABG pH POC ABG pCO2 POC ABG pO2 ABG pO2 ABG HCO3 ABG Base Excess ABG Hemoglobin VBG pH Oxyhemoglobin Sodium Potassium Chloride Carbon Dioxide BUN Creatinine Glucose POC Glucose 292 H 220 H 187 H Lactic Acid Calcium AST ALT Alkaline Phosphatase CK-MB (CK-2) CK-MB (CK-2) Rel Index Total Protein Albumin TSH Urine WBC (Auto) Salicylates 04/02/17 04/03/17 04/03/17 21:57 04:49 14:12 WBC RBC Hgb Hct MCV MCH RDW Plt Count Lymph % (Auto) Riley % (Auto) Eos % (Auto) Riley # Seg Neutrophils % Seg Neuts % (Manual) Lymphocytes % (Manual) Seg Neutrophils # Seg Neutrophils # Man Lymphocytes # (Manual) APTT POC ABG pH ABG pH POC ABG pCO2 POC ABG pO2 ABG pO2 ABG HCO3 ABG Base Excess ABG Hemoglobin VBG pH Oxyhemoglobin Sodium Potassium Chloride Carbon Dioxide BUN Creatinine Glucose POC Glucose 285 H 256 H 197 H Lactic Acid Calcium AST ALT Alkaline Phosphatase CK-MB (CK-2) CK-MB (CK-2) Rel Index Total Protein Albumin TSH Urine WBC (Auto) Salicylates 04/03/17 04/04/17 04/04/17 21:11 05:20 13:18 WBC RBC Hgb Hct MCV MCH RDW Plt Count Lymph % (Auto) Riley % (Auto) Eos % (Auto) Riley # Seg Neutrophils % Seg Neuts % (Manual) Lymphocytes % (Manual) Seg Neutrophils # Seg Neutrophils # Man Lymphocytes # (Manual) APTT POC ABG pH ABG pH POC ABG pCO2 POC ABG pO2 ABG pO2 ABG HCO3 ABG Base Excess ABG Hemoglobin VBG pH Oxyhemoglobin Sodium Potassium Chloride Carbon Dioxide BUN Creatinine Glucose POC Glucose 166 H 228 H 252 H Lactic Acid Calcium AST ALT Alkaline Phosphatase CK-MB (CK-2) CK-MB (CK-2) Rel Index Total Protein Albumin TSH Urine WBC (Auto) Salicylates 04/04/17 04/05/17 04/05/17 21:51 06:14 09:54 WBC RBC Hgb Hct MCV MCH RDW Plt Count Lymph % (Auto) Riley % (Auto) Eos % (Auto) Riley # Seg Neutrophils % Seg Neuts % (Manual) Lymphocytes % (Manual) Seg Neutrophils # Seg Neutrophils # Man Lymphocytes # (Manual) APTT POC ABG pH ABG pH POC ABG pCO2 POC ABG pO2 ABG pO2 ABG HCO3 ABG Base Excess ABG Hemoglobin VBG pH Oxyhemoglobin Sodium Potassium Chloride Carbon Dioxide BUN Creatinine Glucose POC Glucose 252 H 152 H 181 H Lactic Acid Calcium AST ALT Alkaline Phosphatase CK-MB (CK-2) CK-MB (CK-2) Rel Index Total Protein Albumin TSH Urine WBC (Auto) Salicylates 04/05/17 04/05/17 04/05/17 14:49 17:34 21:38 WBC RBC Hgb Hct MCV MCH RDW Plt Count Lymph % (Auto) Riley % (Auto) Eos % (Auto) Riley # Seg Neutrophils % Seg Neuts % (Manual) Lymphocytes % (Manual) Seg Neutrophils # Seg Neutrophils # Man Lymphocytes # (Manual) APTT POC ABG pH ABG pH POC ABG pCO2 POC ABG pO2 ABG pO2 ABG HCO3 ABG Base Excess ABG Hemoglobin VBG pH Oxyhemoglobin Sodium Potassium Chloride Carbon Dioxide BUN Creatinine Glucose POC Glucose 219 H 268 H 278 H Lactic Acid Calcium AST ALT Alkaline Phosphatase CK-MB (CK-2) CK-MB (CK-2) Rel Index Total Protein Albumin TSH Urine WBC (Auto) Salicylates 04/06/17 04/06/17 04/07/17 15:04 22:14 05:09 WBC RBC Hgb Hct MCV MCH RDW Plt Count Lymph % (Auto) Riley % (Auto) Eos % (Auto) Riley # Seg Neutrophils % Seg Neuts % (Manual) Lymphocytes % (Manual) Seg Neutrophils # Seg Neutrophils # Man Lymphocytes # (Manual) APTT POC ABG pH ABG pH POC ABG pCO2 POC ABG pO2 ABG pO2 ABG HCO3 ABG Base Excess ABG Hemoglobin VBG pH Oxyhemoglobin Sodium Potassium Chloride Carbon Dioxide BUN Creatinine Glucose POC Glucose 285 H 106 H 334 H Lactic Acid Calcium AST ALT Alkaline Phosphatase CK-MB (CK-2) CK-MB (CK-2) Rel Index Total Protein Albumin TSH Urine WBC (Auto) Salicylates 04/07/17 04/07/17 04/08/17 14:45 21:48 05:28 WBC RBC Hgb Hct MCV MCH RDW Plt Count Lymph % (Auto) Riley % (Auto) Eos % (Auto) Riley # Seg Neutrophils % Seg Neuts % (Manual) Lymphocytes % (Manual) Seg Neutrophils # Seg Neutrophils # Man Lymphocytes # (Manual) APTT POC ABG pH ABG pH POC ABG pCO2 POC ABG pO2 ABG pO2 ABG HCO3 ABG Base Excess ABG Hemoglobin VBG pH Oxyhemoglobin Sodium Potassium Chloride Carbon Dioxide BUN Creatinine Glucose POC Glucose 173 H 304 H 314 H Lactic Acid Calcium AST ALT Alkaline Phosphatase CK-MB (CK-2) CK-MB (CK-2) Rel Index Total Protein Albumin TSH Urine WBC (Auto) Salicylates 04/08/17 04/08/17 04/08/17 15:57 16:17 22:21 WBC RBC Hgb Hct MCV MCH RDW Plt Count Lymph % (Auto) Riley % (Auto) Eos % (Auto) Riley # Seg Neutrophils % Seg Neuts % (Manual) Lymphocytes % (Manual) Seg Neutrophils # Seg Neutrophils # Man Lymphocytes # (Manual) APTT POC ABG pH ABG pH POC ABG pCO2 POC ABG pO2 ABG pO2 ABG HCO3 ABG Base Excess ABG Hemoglobin VBG pH Oxyhemoglobin Sodium Potassium Chloride Carbon Dioxide BUN Creatinine Glucose POC Glucose 356 H 337 H 323 H Lactic Acid Calcium AST ALT Alkaline Phosphatase CK-MB (CK-2) CK-MB (CK-2) Rel Index Total Protein Albumin TSH Urine WBC (Auto) Salicylates 04/09/17 04/09/17 04/09/17 06:19 15:30 21:52 WBC RBC Hgb Hct MCV MCH RDW Plt Count Lymph % (Auto) Riley % (Auto) Eos % (Auto) Riley # Seg Neutrophils % Seg Neuts % (Manual) Lymphocytes % (Manual) Seg Neutrophils # Seg Neutrophils # Man Lymphocytes # (Manual) APTT POC ABG pH ABG pH POC ABG pCO2 POC ABG pO2 ABG pO2 ABG HCO3 ABG Base Excess ABG Hemoglobin VBG pH Oxyhemoglobin Sodium Potassium Chloride Carbon Dioxide BUN Creatinine Glucose POC Glucose 340 H 332 H 341 H Lactic Acid Calcium AST ALT Alkaline Phosphatase CK-MB (CK-2) CK-MB (CK-2) Rel Index Total Protein Albumin TSH Urine WBC (Auto) Salicylates 04/10/17 04/10/17 04/10/17 01:53 05:33 17:40 WBC RBC Hgb Hct MCV MCH RDW Plt Count Lymph % (Auto) Riley % (Auto) Eos % (Auto) Riley # Seg Neutrophils % Seg Neuts % (Manual) Lymphocytes % (Manual) Seg Neutrophils # Seg Neutrophils # Man Lymphocytes # (Manual) APTT POC ABG pH ABG pH POC ABG pCO2 POC ABG pO2 ABG pO2 ABG HCO3 ABG Base Excess ABG Hemoglobin VBG pH Oxyhemoglobin Sodium Potassium Chloride Carbon Dioxide BUN Creatinine Glucose POC Glucose 261 H 277 H 304 H Lactic Acid Calcium AST ALT Alkaline Phosphatase CK-MB (CK-2) CK-MB (CK-2) Rel Index Total Protein Albumin TSH Urine WBC (Auto) Salicylates 04/10/17 04/11/17 04/11/17 21:29 05:28 14:02 WBC RBC Hgb Hct MCV MCH RDW Plt Count Lymph % (Auto) Riley % (Auto) Eos % (Auto) Riley # Seg Neutrophils % Seg Neuts % (Manual) Lymphocytes % (Manual) Seg Neutrophils # Seg Neutrophils # Man Lymphocytes # (Manual) APTT POC ABG pH ABG pH POC ABG pCO2 POC ABG pO2 ABG pO2 ABG HCO3 ABG Base Excess ABG Hemoglobin VBG pH Oxyhemoglobin Sodium Potassium Chloride Carbon Dioxide BUN Creatinine Glucose POC Glucose 361 H 204 H 236 H Lactic Acid Calcium AST ALT Alkaline Phosphatase CK-MB (CK-2) CK-MB (CK-2) Rel Index Total Protein Albumin TSH Urine WBC (Auto) Salicylates 04/11/17 04/12/17 04/12/17 21:43 05:00 11:53 WBC RBC Hgb Hct MCV MCH RDW Plt Count Lymph % (Auto) Riley % (Auto) Eos % (Auto) Riley # Seg Neutrophils % Seg Neuts % (Manual) Lymphocytes % (Manual) Seg Neutrophils # Seg Neutrophils # Man Lymphocytes # (Manual) APTT POC ABG pH ABG pH POC ABG pCO2 POC ABG pO2 ABG pO2 ABG HCO3 ABG Base Excess ABG Hemoglobin VBG pH Oxyhemoglobin Sodium Potassium Chloride Carbon Dioxide BUN Creatinine Glucose POC Glucose 287 H 294 H 265 H Lactic Acid Calcium AST ALT Alkaline Phosphatase CK-MB (CK-2) CK-MB (CK-2) Rel Index Total Protein Albumin TSH Urine WBC (Auto) Salicylates 04/12/17 04/12/17 04/13/17 21:21 23:44 06:05 WBC RBC Hgb Hct MCV MCH RDW Plt Count Lymph % (Auto) Riley % (Auto) Eos % (Auto) Riley # Seg Neutrophils % Seg Neuts % (Manual) Lymphocytes % (Manual) Seg Neutrophils # Seg Neutrophils # Man Lymphocytes # (Manual) APTT POC ABG pH ABG pH POC ABG pCO2 POC ABG pO2 ABG pO2 ABG HCO3 ABG Base Excess ABG Hemoglobin VBG pH Oxyhemoglobin Sodium Potassium Chloride Carbon Dioxide BUN Creatinine Glucose POC Glucose 289 H 348 H 326 H Lactic Acid Calcium AST ALT Alkaline Phosphatase CK-MB (CK-2) CK-MB (CK-2) Rel Index Total Protein Albumin TSH Urine WBC (Auto) Salicylates 04/13/17 04/13/17 04/14/17 13:54 21:15 05:49 WBC RBC Hgb Hct MCV MCH RDW Plt Count Lymph % (Auto) Riley % (Auto) Eos % (Auto) Riley # Seg Neutrophils % Seg Neuts % (Manual) Lymphocytes % (Manual) Seg Neutrophils # Seg Neutrophils # Man Lymphocytes # (Manual) APTT POC ABG pH ABG pH POC ABG pCO2 POC ABG pO2 ABG pO2 ABG HCO3 ABG Base Excess ABG Hemoglobin VBG pH Oxyhemoglobin Sodium Potassium Chloride Carbon Dioxide BUN Creatinine Glucose POC Glucose 326 H 263 H 319 H Lactic Acid Calcium AST ALT Alkaline Phosphatase CK-MB (CK-2) CK-MB (CK-2) Rel Index Total Protein Albumin TSH Urine WBC (Auto) Salicylates 04/14/17 04/14/17 04/15/17 13:26 23:13 14:24 WBC RBC Hgb Hct MCV MCH RDW Plt Count Lymph % (Auto) Riley % (Auto) Eos % (Auto) Riley # Seg Neutrophils % Seg Neuts % (Manual) Lymphocytes % (Manual) Seg Neutrophils # Seg Neutrophils # Man Lymphocytes # (Manual) APTT POC ABG pH ABG pH POC ABG pCO2 POC ABG pO2 ABG pO2 ABG HCO3 ABG Base Excess ABG Hemoglobin VBG pH Oxyhemoglobin Sodium Potassium Chloride Carbon Dioxide BUN Creatinine Glucose POC Glucose 207 H 365 H 308 H Lactic Acid Calcium AST ALT Alkaline Phosphatase CK-MB (CK-2) CK-MB (CK-2) Rel Index Total Protein Albumin TSH Urine WBC (Auto) Salicylates 04/15/17 04/15/17 04/15/17 21:00 22:18 23:12 WBC RBC Hgb Hct MCV MCH RDW Plt Count Lymph % (Auto) Riley % (Auto) Eos % (Auto) Riley # Seg Neutrophils % Seg Neuts % (Manual) Lymphocytes % (Manual) Seg Neutrophils # Seg Neutrophils # Man Lymphocytes # (Manual) APTT POC ABG pH ABG pH POC ABG pCO2 POC ABG pO2 ABG pO2 ABG HCO3 ABG Base Excess ABG Hemoglobin VBG pH Oxyhemoglobin Sodium Potassium Chloride Carbon Dioxide BUN Creatinine Glucose POC Glucose 407 H 287 H 325 H Lactic Acid Calcium AST ALT Alkaline Phosphatase CK-MB (CK-2) CK-MB (CK-2) Rel Index Total Protein Albumin TSH Urine WBC (Auto) Salicylates 04/16/17 04/16/17 04/16/17 05:30 10:07 14:26 WBC RBC Hgb Hct MCV MCH RDW Plt Count Lymph % (Auto) Riley % (Auto) Eos % (Auto) Riley # Seg Neutrophils % Seg Neuts % (Manual) Lymphocytes % (Manual) Seg Neutrophils # Seg Neutrophils # Man Lymphocytes # (Manual) APTT POC ABG pH ABG pH POC ABG pCO2 POC ABG pO2 ABG pO2 ABG HCO3 ABG Base Excess ABG Hemoglobin VBG pH Oxyhemoglobin Sodium Potassium Chloride Carbon Dioxide BUN Creatinine Glucose POC Glucose 304 H 217 H 344 H Lactic Acid Calcium AST ALT Alkaline Phosphatase CK-MB (CK-2) CK-MB (CK-2) Rel Index Total Protein Albumin TSH Urine WBC (Auto) Salicylates 04/16/17 04/17/17 04/17/17 21:25 05:12 14:19 WBC RBC Hgb Hct MCV MCH RDW Plt Count Lymph % (Auto) Riley % (Auto) Eos % (Auto) Riley # Seg Neutrophils % Seg Neuts % (Manual) Lymphocytes % (Manual) Seg Neutrophils # Seg Neutrophils # Man Lymphocytes # (Manual) APTT POC ABG pH ABG pH POC ABG pCO2 POC ABG pO2 ABG pO2 ABG HCO3 ABG Base Excess ABG Hemoglobin VBG pH Oxyhemoglobin Sodium Potassium Chloride Carbon Dioxide BUN Creatinine Glucose POC Glucose 305 H 233 H 324 H Lactic Acid Calcium AST ALT Alkaline Phosphatase CK-MB (CK-2) CK-MB (CK-2) Rel Index Total Protein Albumin TSH Urine WBC (Auto) Salicylates 04/17/17 04/18/17 04/18/17 21:42 06:21 14:08 WBC RBC Hgb Hct MCV MCH RDW Plt Count Lymph % (Auto) Riley % (Auto) Eos % (Auto) Riley # Seg Neutrophils % Seg Neuts % (Manual) Lymphocytes % (Manual) Seg Neutrophils # Seg Neutrophils # Man Lymphocytes # (Manual) APTT POC ABG pH ABG pH POC ABG pCO2 POC ABG pO2 ABG pO2 ABG HCO3 ABG Base Excess ABG Hemoglobin VBG pH Oxyhemoglobin Sodium Potassium Chloride Carbon Dioxide BUN Creatinine Glucose POC Glucose 270 H 308 H 290 H Lactic Acid Calcium AST ALT Alkaline Phosphatase CK-MB (CK-2) CK-MB (CK-2) Rel Index Total Protein Albumin TSH Urine WBC (Auto) Salicylates 04/18/17 04/19/17 04/19/17 21:50 05:20 13:59 WBC RBC Hgb Hct MCV MCH RDW Plt Count Lymph % (Auto) Riley % (Auto) Eos % (Auto) Riley # Seg Neutrophils % Seg Neuts % (Manual) Lymphocytes % (Manual) Seg Neutrophils # Seg Neutrophils # Man Lymphocytes # (Manual) APTT POC ABG pH ABG pH POC ABG pCO2 POC ABG pO2 ABG pO2 ABG HCO3 ABG Base Excess ABG Hemoglobin VBG pH Oxyhemoglobin Sodium Potassium Chloride Carbon Dioxide BUN Creatinine Glucose POC Glucose 167 H 372 H 321 H Lactic Acid Calcium AST ALT Alkaline Phosphatase CK-MB (CK-2) CK-MB (CK-2) Rel Index Total Protein Albumin TSH Urine WBC (Auto) Salicylates 04/19/17 04/20/17 04/20/17 21:16 14:18 21:34 WBC RBC Hgb Hct MCV MCH RDW Plt Count Lymph % (Auto) Riley % (Auto) Eos % (Auto) Riley # Seg Neutrophils % Seg Neuts % (Manual) Lymphocytes % (Manual) Seg Neutrophils # Seg Neutrophils # Man Lymphocytes # (Manual) APTT POC ABG pH ABG pH POC ABG pCO2 POC ABG pO2 ABG pO2 ABG HCO3 ABG Base Excess ABG Hemoglobin VBG pH Oxyhemoglobin Sodium Potassium Chloride Carbon Dioxide BUN Creatinine Glucose POC Glucose 182 H 218 H 121 H Lactic Acid Calcium AST ALT Alkaline Phosphatase CK-MB (CK-2) CK-MB (CK-2) Rel Index Total Protein Albumin TSH Urine WBC (Auto) Salicylates 04/21/17 04/21/17 04/21/17 00:08 05:16 12:41 WBC RBC Hgb Hct MCV MCH RDW Plt Count Lymph % (Auto) Riley % (Auto) Eos % (Auto) Riley # Seg Neutrophils % Seg Neuts % (Manual) Lymphocytes % (Manual) Seg Neutrophils # Seg Neutrophils # Man Lymphocytes # (Manual) APTT POC ABG pH ABG pH POC ABG pCO2 POC ABG pO2 ABG pO2 ABG HCO3 ABG Base Excess ABG Hemoglobin VBG pH Oxyhemoglobin Sodium Potassium Chloride Carbon Dioxide BUN Creatinine Glucose POC Glucose 128 H 120 H 216 H Lactic Acid Calcium AST ALT Alkaline Phosphatase CK-MB (CK-2) CK-MB (CK-2) Rel Index Total Protein Albumin TSH Urine WBC (Auto) Salicylates 04/21/17 04/22/17 04/22/17 23:40 14:12 23:38 WBC RBC Hgb Hct MCV MCH RDW Plt Count Lymph % (Auto) Riley % (Auto) Eos % (Auto) Riley # Seg Neutrophils % Seg Neuts % (Manual) Lymphocytes % (Manual) Seg Neutrophils # Seg Neutrophils # Man Lymphocytes # (Manual) APTT POC ABG pH ABG pH POC ABG pCO2 POC ABG pO2 ABG pO2 ABG HCO3 ABG Base Excess ABG Hemoglobin VBG pH Oxyhemoglobin Sodium Potassium Chloride Carbon Dioxide BUN Creatinine Glucose POC Glucose 157 H 242 H 117 H Lactic Acid Calcium AST ALT Alkaline Phosphatase CK-MB (CK-2) CK-MB (CK-2) Rel Index Total Protein Albumin TSH Urine WBC (Auto) Salicylates 04/23/17 04/23/17 04/24/17 05:18 14:01 03:24 WBC RBC Hgb Hct MCV MCH RDW Plt Count Lymph % (Auto) Riley % (Auto) Eos % (Auto) Riley # Seg Neutrophils % Seg Neuts % (Manual) Lymphocytes % (Manual) Seg Neutrophils # Seg Neutrophils # Man Lymphocytes # (Manual) APTT POC ABG pH ABG pH POC ABG pCO2 POC ABG pO2 ABG pO2 ABG HCO3 ABG Base Excess ABG Hemoglobin VBG pH Oxyhemoglobin Sodium Potassium Chloride Carbon Dioxide BUN Creatinine Glucose POC Glucose 163 H 57 L 177 H Lactic Acid Calcium AST ALT Alkaline Phosphatase CK-MB (CK-2) CK-MB (CK-2) Rel Index Total Protein Albumin TSH Urine WBC (Auto) Salicylates 04/24/17 04/24/17 04/24/17 04:00 04:00 06:33 WBC RBC Hgb 9.9 L Hct 30.0 L MCV 79 L MCH 26 L RDW 17.1 H Plt Count 625 H Lymph % (Auto) Riley % (Auto) 8.4 H Eos % (Auto) Riley # Seg Neutrophils % Seg Neuts % (Manual) Lymphocytes % (Manual) Seg Neutrophils # Seg Neutrophils # Man Lymphocytes # (Manual) APTT POC ABG pH ABG pH POC ABG pCO2 POC ABG pO2 ABG pO2 ABG HCO3 ABG Base Excess ABG Hemoglobin VBG pH Oxyhemoglobin Sodium 136 L Potassium Chloride 94.9 L Carbon Dioxide BUN 40 H Creatinine 0.6 L Glucose 176 H POC Glucose 230 H Lactic Acid Calcium AST 67 H ALT Alkaline Phosphatase 294 H CK-MB (CK-2) CK-MB (CK-2) Rel Index Total Protein 9.0 H Albumin 2.5 L TSH Urine WBC (Auto) Salicylates 04/24/17 04/25/17 04/25/17 13:50 00:22 02:55 WBC RBC 3.54 L Hgb 9.0 L Hct 27.9 L MCV 79 L MCH 26 L RDW 17.5 H Plt Count 574 H Lymph % (Auto) Riley % (Auto) 10.4 H Eos % (Auto) Riley # 1.0 H Seg Neutrophils % Seg Neuts % (Manual) Lymphocytes % (Manual) Seg Neutrophils # Seg Neutrophils # Man Lymphocytes # (Manual) APTT POC ABG pH ABG pH POC ABG pCO2 POC ABG pO2 ABG pO2 ABG HCO3 ABG Base Excess ABG Hemoglobin VBG pH Oxyhemoglobin Sodium Potassium Chloride Carbon Dioxide BUN Creatinine Glucose POC Glucose 116 H < 40 L Lactic Acid Calcium AST ALT Alkaline Phosphatase CK-MB (CK-2) CK-MB (CK-2) Rel Index Total Protein Albumin TSH Urine WBC (Auto) Salicylates 04/25/17 04/25/17 04/25/17 02:55 11:15 18:36 WBC RBC Hgb Hct MCV MCH RDW Plt Count Lymph % (Auto) Riley % (Auto) Eos % (Auto) Riley # Seg Neutrophils % Seg Neuts % (Manual) Lymphocytes % (Manual) Seg Neutrophils # Seg Neutrophils # Man Lymphocytes # (Manual) APTT POC ABG pH ABG pH POC ABG pCO2 POC ABG pO2 ABG pO2 ABG HCO3 ABG Base Excess ABG Hemoglobin VBG pH Oxyhemoglobin Sodium Potassium Chloride 96.2 L Carbon Dioxide BUN 39 H Creatinine 0.7 L Glucose 125 H POC Glucose 227 H 280 H Lactic Acid Calcium AST ALT Alkaline Phosphatase 247 H CK-MB (CK-2) CK-MB (CK-2) Rel Index Total Protein Albumin 2.7 L TSH Urine WBC (Auto) Salicylates 04/25/17 04/26/17 04/26/17 21:49 06:53 07:27 WBC RBC 3.61 L Hgb 9.1 L Hct 28.1 L MCV 78 L MCH 25 L RDW 17.4 H Plt Count 594 H Lymph % (Auto) Riley % (Auto) 9.2 H Eos % (Auto) Riley # 1.0 H Seg Neutrophils % 70.6 H Seg Neuts % (Manual) Lymphocytes % (Manual) Seg Neutrophils # Seg Neutrophils # Man Lymphocytes # (Manual) APTT POC ABG pH ABG pH POC ABG pCO2 POC ABG pO2 ABG pO2 ABG HCO3 ABG Base Excess ABG Hemoglobin VBG pH Oxyhemoglobin Sodium Potassium Chloride Carbon Dioxide BUN Creatinine Glucose POC Glucose 192 H 60 L Lactic Acid Calcium AST ALT Alkaline Phosphatase CK-MB (CK-2) CK-MB (CK-2) Rel Index Total Protein Albumin TSH Urine WBC (Auto) Salicylates 04/26/17 04/26/17 04/26/17 07:27 07:28 13:32 WBC RBC Hgb Hct MCV MCH RDW Plt Count Lymph % (Auto) Riley % (Auto) Eos % (Auto) Riley # Seg Neutrophils % Seg Neuts % (Manual) Lymphocytes % (Manual) Seg Neutrophils # Seg Neutrophils # Man Lymphocytes # (Manual) APTT POC ABG pH ABG pH POC ABG pCO2 POC ABG pO2 ABG pO2 ABG HCO3 ABG Base Excess ABG Hemoglobin VBG pH Oxyhemoglobin Sodium Potassium Chloride 95.0 L Carbon Dioxide BUN 42 H Creatinine 0.7 L Glucose 172 H POC Glucose 190 H 168 H Lactic Acid Calcium AST 56 H ALT Alkaline Phosphatase 274 H CK-MB (CK-2) CK-MB (CK-2) Rel Index Total Protein 8.9 H Albumin 2.7 L TSH Urine WBC (Auto) Salicylates 04/26/17 04/27/17 04/27/17 23:36 05:10 05:10 WBC RBC 3.49 L Hgb 8.7 L Hct 27.0 L MCV 77 L MCH 25 L RDW 17.4 H Plt Count 558 H Lymph % (Auto) Riley % (Auto) 9.6 H Eos % (Auto) Riley # Seg Neutrophils % Seg Neuts % (Manual) Lymphocytes % (Manual) Seg Neutrophils # Seg Neutrophils # Man Lymphocytes # (Manual) APTT POC ABG pH ABG pH POC ABG pCO2 POC ABG pO2 ABG pO2 ABG HCO3 ABG Base Excess ABG Hemoglobin VBG pH Oxyhemoglobin Sodium 133 L Potassium Chloride 93.5 L Carbon Dioxide BUN 40 H Creatinine 0.7 L Glucose 179 H POC Glucose 204 H Lactic Acid Calcium AST 73 H ALT 58 H Alkaline Phosphatase 294 H CK-MB (CK-2) CK-MB (CK-2) Rel Index Total Protein 8.7 H Albumin 2.4 L TSH Urine WBC (Auto) Salicylates 04/27/17 04/27/17 04/27/17 05:45 14:08 23:46 WBC RBC Hgb Hct MCV MCH RDW Plt Count Lymph % (Auto) Riley % (Auto) Eos % (Auto) Riley # Seg Neutrophils % Seg Neuts % (Manual) Lymphocytes % (Manual) Seg Neutrophils # Seg Neutrophils # Man Lymphocytes # (Manual) APTT POC ABG pH ABG pH POC ABG pCO2 POC ABG pO2 ABG pO2 ABG HCO3 ABG Base Excess ABG Hemoglobin VBG pH Oxyhemoglobin Sodium Potassium Chloride Carbon Dioxide BUN Creatinine Glucose POC Glucose 200 H 206 H 207 H Lactic Acid Calcium AST ALT Alkaline Phosphatase CK-MB (CK-2) CK-MB (CK-2) Rel Index Total Protein Albumin TSH Urine WBC (Auto) Salicylates 04/28/17 04/28/17 04/28/17 04:48 04:53 05:10 WBC RBC 3.48 L Hgb 8.8 L Hct 26.7 L MCV 77 L MCH 25 L RDW 17.0 H Plt Count 515 H Lymph % (Auto) Riley % (Auto) 8.4 H Eos % (Auto) Riley # Seg Neutrophils % 70.6 H Seg Neuts % (Manual) Lymphocytes % (Manual) Seg Neutrophils # Seg Neutrophils # Man Lymphocytes # (Manual) APTT POC ABG pH ABG pH POC ABG pCO2 POC ABG pO2 ABG pO2 ABG HCO3 ABG Base Excess ABG Hemoglobin VBG pH Oxyhemoglobin Sodium Potassium Chloride Carbon Dioxide BUN Creatinine Glucose POC Glucose 43 L 41 L Lactic Acid Calcium AST ALT Alkaline Phosphatase CK-MB (CK-2) CK-MB (CK-2) Rel Index Total Protein Albumin TSH Urine WBC (Auto) Salicylates 04/28/17 04/28/17 04/28/17 05:10 14:06 22:07 WBC RBC Hgb Hct MCV MCH RDW Plt Count Lymph % (Auto) Riley % (Auto) Eos % (Auto) Riley # Seg Neutrophils % Seg Neuts % (Manual) Lymphocytes % (Manual) Seg Neutrophils # Seg Neutrophils # Man Lymphocytes # (Manual) APTT POC ABG pH ABG pH POC ABG pCO2 POC ABG pO2 ABG pO2 ABG HCO3 ABG Base Excess ABG Hemoglobin VBG pH Oxyhemoglobin Sodium 136 L Potassium Chloride 95.2 L Carbon Dioxide BUN 42 H Creatinine Glucose 63 L POC Glucose 303 H 227 H Lactic Acid Calcium AST 45 H ALT Alkaline Phosphatase 271 H CK-MB (CK-2) CK-MB (CK-2) Rel Index Total Protein 8.9 H Albumin 2.5 L TSH Urine WBC (Auto) Salicylates 04/29/17 04/29/17 04/29/17 06:40 14:11 21:35 WBC RBC Hgb Hct MCV MCH RDW Plt Count Lymph % (Auto) Riley % (Auto) Eos % (Auto) Riley # Seg Neutrophils % Seg Neuts % (Manual) Lymphocytes % (Manual) Seg Neutrophils # Seg Neutrophils # Man Lymphocytes # (Manual) APTT POC ABG pH ABG pH POC ABG pCO2 POC ABG pO2 ABG pO2 ABG HCO3 ABG Base Excess ABG Hemoglobin VBG pH Oxyhemoglobin Sodium Potassium Chloride Carbon Dioxide BUN Creatinine Glucose POC Glucose 254 H 244 H 184 H Lactic Acid Calcium AST ALT Alkaline Phosphatase CK-MB (CK-2) CK-MB (CK-2) Rel Index Total Protein Albumin TSH Urine WBC (Auto) Salicylates 04/30/17 04/30/17 04/30/17 05:17 14:03 22:08 WBC RBC Hgb Hct MCV MCH RDW Plt Count Lymph % (Auto) [place] % (Auto) Eos % (Auto) Riley # Seg Neutrophils % Seg Neuts % (Manual) Lymphocytes % (Manual) Seg Neutrophils # Seg Neutrophils # Man Lymphocytes # (Manual) APTT POC ABG pH ABG pH POC ABG pCO2 POC ABG pO2 ABG pO2 ABG HCO3 ABG Base Excess ABG Hemoglobin VBG pH Oxyhemoglobin Sodium Potassium Chloride Carbon Dioxide BUN Creatinine Glucose POC Glucose 173 H 182 H 247 H Lactic Acid Calcium AST ALT Alkaline Phosphatase CK-MB (CK-2) CK-MB (CK-2) Rel Index Total Protein Albumin TSH Urine WBC (Auto) Salicylates 05/01/17 05/01/17 05/01/17 05:04 15:37 18:50 WBC RBC Hgb Hct MCV MCH RDW Plt Count Lymph % (Auto) [place] % (Auto) Eos % (Auto) [place] # Seg Neutrophils % Seg Neuts % (Manual) Lymphocytes % (Manual) Seg Neutrophils # Seg Neutrophils # Man Lymphocytes # (Manual) APTT POC ABG pH ABG pH POC ABG pCO2 POC ABG pO2 ABG pO2 ABG HCO3 ABG Base Excess ABG Hemoglobin VBG pH Oxyhemoglobin Sodium Potassium Chloride Carbon Dioxide BUN Creatinine Glucose POC Glucose 335 H 68 L 144 H Lactic Acid Calcium AST ALT Alkaline Phosphatase CK-MB (CK-2) CK-MB (CK-2) Rel Index Total Protein Albumin TSH Urine WBC (Auto) Salicylates 05/01/17 05/02/17 05/02/17 22:13 04:59 14:06 WBC RBC Hgb Hct MCV MCH RDW Plt Count Lymph % (Auto) [place] % (Auto) Eos % (Auto) [place] # Seg Neutrophils % Seg Neuts % (Manual) Lymphocytes % (Manual) Seg Neutrophils # Seg Neutrophils # Man Lymphocytes # (Manual) APTT POC ABG pH ABG pH POC ABG pCO2 POC ABG pO2 ABG pO2 ABG HCO3 ABG Base Excess ABG Hemoglobin VBG pH Oxyhemoglobin Sodium Potassium Chloride Carbon Dioxide BUN Creatinine Glucose POC Glucose 192 H 225 H 165 H Lactic Acid Calcium AST ALT Alkaline Phosphatase CK-MB (CK-2) CK-MB (CK-2) Rel Index Total Protein Albumin TSH Urine WBC (Auto) Salicylates 05/02/17 05/03/17 05/03/17 21:20 05:16 16:56 WBC RBC Hgb Hct MCV MCH RDW Plt Count Lymph % (Auto) [place] % (Auto) Eos % (Auto) Riley # Seg Neutrophils % Seg Neuts % (Manual) Lymphocytes % (Manual) Seg Neutrophils # Seg Neutrophils # Man Lymphocytes # (Manual) APTT POC ABG pH ABG pH POC ABG pCO2 POC ABG pO2 ABG pO2 ABG HCO3 ABG Base Excess ABG Hemoglobin VBG pH Oxyhemoglobin Sodium Potassium Chloride Carbon Dioxide BUN Creatinine Glucose POC Glucose 181 H 323 H 125 H Lactic Acid Calcium AST ALT Alkaline Phosphatase CK-MB (CK-2) CK-MB (CK-2) Rel Index Total Protein Albumin TSH Urine WBC (Auto) Salicylates 05/03/17 05/04/17 05/04/17 21:46 05:01 14:24 WBC RBC Hgb Hct MCV MCH RDW Plt Count Lymph % (Auto) [place] % (Auto) Eos % (Auto) [place] # Seg Neutrophils % Seg Neuts % (Manual) Lymphocytes % (Manual) Seg Neutrophils # Seg Neutrophils # Man Lymphocytes # (Manual) APTT POC ABG pH ABG pH POC ABG pCO2 POC ABG pO2 ABG pO2 ABG HCO3 ABG Base Excess ABG Hemoglobin VBG pH Oxyhemoglobin Sodium Potassium Chloride Carbon Dioxide BUN Creatinine Glucose POC Glucose 210 H 360 H 219 H Lactic Acid Calcium AST ALT Alkaline Phosphatase CK-MB (CK-2) CK-MB (CK-2) Rel Index Total Protein Albumin TSH Urine WBC (Auto) Salicylates 05/04/17 05/05/17 05/05/17 21:39 01:58 05:13 WBC RBC Hgb Hct MCV MCH RDW Plt Count Lymph % (Auto) [place] % (Auto) Eos % (Auto) [place] # Seg Neutrophils % Seg Neuts % (Manual) Lymphocytes % (Manual) Seg Neutrophils # Seg Neutrophils # Man Lymphocytes # (Manual) APTT POC ABG pH ABG pH POC ABG pCO2 POC ABG pO2 ABG pO2 ABG HCO3 ABG Base Excess ABG Hemoglobin VBG pH Oxyhemoglobin Sodium Potassium Chloride Carbon Dioxide BUN Creatinine Glucose POC Glucose 126 H 175 H 267 H Lactic Acid Calcium AST ALT Alkaline Phosphatase CK-MB (CK-2) CK-MB (CK-2) Rel Index Total Protein Albumin TSH Urine WBC (Auto) Salicylates 05/05/17 05/05/17 05/05/17 12:19 14:11 21:18 WBC RBC Hgb Hct MCV MCH RDW Plt Count Lymph % (Auto) [place] % (Auto) Eos % (Auto) [place] # Seg Neutrophils % Seg Neuts % (Manual) Lymphocytes % (Manual) Seg Neutrophils # Seg Neutrophils # Man Lymphocytes # (Manual) APTT POC ABG pH ABG pH POC ABG pCO2 POC ABG pO2 ABG pO2 ABG HCO3 ABG Base Excess ABG Hemoglobin VBG pH Oxyhemoglobin Sodium Potassium Chloride Carbon Dioxide BUN Creatinine Glucose POC Glucose 221 H 205 H 156 H Lactic Acid Calcium AST ALT Alkaline Phosphatase CK-MB (CK-2) CK-MB (CK-2) Rel Index Total Protein Albumin TSH Urine WBC (Auto) Salicylates 05/06/17 05/06/17 05/06/17 06:02 15:26 21:43 WBC RBC Hgb Hct MCV MCH RDW Plt Count Lymph % (Auto) [place] % (Auto) Eos % (Auto) [place] # Seg Neutrophils % Seg Neuts % (Manual) Lymphocytes % (Manual) Seg Neutrophils # Seg Neutrophils # Man Lymphocytes # (Manual) APTT POC ABG pH ABG pH POC ABG pCO2 POC ABG pO2 ABG pO2 ABG HCO3 ABG Base Excess ABG Hemoglobin VBG pH Oxyhemoglobin Sodium Potassium Chloride Carbon Dioxide BUN Creatinine Glucose POC Glucose 263 H 143 H 145 H Lactic Acid Calcium AST ALT Alkaline Phosphatase CK-MB (CK-2) CK-MB (CK-2) Rel Index Total Protein Albumin TSH Urine WBC (Auto) Salicylates 05/07/17 05/07/17 05/07/17 05:52 21:46 21:49 WBC RBC Hgb Hct MCV MCH RDW Plt Count Lymph % (Auto) [place] % (Auto) Eos % (Auto) [place] # Seg Neutrophils % Seg Neuts % (Manual) Lymphocytes % (Manual) Seg Neutrophils # Seg Neutrophils # Man Lymphocytes # (Manual) APTT POC ABG pH ABG pH POC ABG pCO2 POC ABG pO2 ABG pO2 ABG HCO3 ABG Base Excess ABG Hemoglobin VBG pH Oxyhemoglobin Sodium Potassium Chloride Carbon Dioxide BUN Creatinine Glucose POC Glucose 242 H < 40 L < 40 L Lactic Acid Calcium AST ALT Alkaline Phosphatase CK-MB (CK-2) CK-MB (CK-2) Rel Index Total Protein Albumin TSH Urine WBC (Auto) Salicylates 05/07/17 05/08/17 05/09/17 22:41 06:14 00:02 WBC RBC Hgb Hct MCV MCH RDW Plt Count Lymph % (Auto) [place] % (Auto) Eos % (Auto) [place] # Seg Neutrophils % Seg Neuts % (Manual) Lymphocytes % (Manual) Seg Neutrophils # Seg Neutrophils # Man Lymphocytes # (Manual) APTT POC ABG pH ABG pH POC ABG pCO2 POC ABG pO2 ABG pO2 ABG HCO3 ABG Base Excess ABG Hemoglobin VBG pH Oxyhemoglobin Sodium Potassium Chloride Carbon Dioxide BUN Creatinine Glucose POC Glucose 183 H 329 H 130 H Lactic Acid Calcium AST ALT Alkaline Phosphatase CK-MB (CK-2) CK-MB (CK-2) Rel Index Total Protein Albumin TSH Urine WBC (Auto) Salicylates 05/09/17 05/09/17 05/09/17 06:08 14:06 21:44 WBC RBC Hgb Hct MCV MCH RDW Plt Count Lymph % (Auto) [place] % (Auto) Eos % (Auto) Riley # Seg Neutrophils % Seg Neuts % (Manual) Lymphocytes % (Manual) Seg Neutrophils # Seg Neutrophils # Man Lymphocytes # (Manual) APTT POC ABG pH ABG pH POC ABG pCO2 POC ABG pO2 ABG pO2 ABG HCO3 ABG Base Excess ABG Hemoglobin VBG pH Oxyhemoglobin Sodium Potassium Chloride Carbon Dioxide BUN Creatinine Glucose POC Glucose 241 H 251 H 198 H Lactic Acid Calcium AST ALT Alkaline Phosphatase CK-MB (CK-2) CK-MB (CK-2) Rel Index Total Protein Albumin TSH Urine WBC (Auto) Salicylates 05/10/17 05/10/17 05/10/17 05:18 14:44 21:53 WBC RBC Hgb Hct MCV MCH RDW Plt Count Lymph % (Auto) [place] % (Auto) Eos % (Auto) [place] # Seg Neutrophils % Seg Neuts % (Manual) Lymphocytes % (Manual) Seg Neutrophils # Seg Neutrophils # Man Lymphocytes # (Manual) APTT POC ABG pH ABG pH POC ABG pCO2 POC ABG pO2 ABG pO2 ABG HCO3 ABG Base Excess ABG Hemoglobin VBG pH Oxyhemoglobin Sodium Potassium Chloride Carbon Dioxide BUN Creatinine Glucose POC Glucose 166 H 224 H 171 H Lactic Acid Calcium AST ALT Alkaline Phosphatase CK-MB (CK-2) CK-MB (CK-2) Rel Index Total Protein Albumin TSH Urine WBC (Auto) Salicylates 05/11/17 05/11/17 05/11/17 05:45 13:44 21:42 WBC RBC Hgb Hct MCV MCH RDW Plt Count Lymph % (Auto) [place] % (Auto) Eos % (Auto) [place] # Seg Neutrophils % Seg Neuts % (Manual) Lymphocytes % (Manual) Seg Neutrophils # Seg Neutrophils # Man Lymphocytes # (Manual) APTT POC ABG pH ABG pH POC ABG pCO2 POC ABG pO2 ABG pO2 ABG HCO3 ABG Base Excess ABG Hemoglobin VBG pH Oxyhemoglobin Sodium Potassium Chloride Carbon Dioxide BUN Creatinine Glucose POC Glucose 199 H 150 H 163 H Lactic Acid Calcium AST ALT Alkaline Phosphatase CK-MB (CK-2) CK-MB (CK-2) Rel Index Total Protein Albumin TSH Urine WBC (Auto) Salicylates 05/12/17 05/12/17 05/12/17 06:03 13:59 21:22 WBC RBC Hgb Hct MCV MCH RDW Plt Count Lymph % (Auto) [place] % (Auto) Eos % (Auto) [place] # Seg Neutrophils % Seg Neuts % (Manual) Lymphocytes % (Manual) Seg Neutrophils # Seg Neutrophils # Man Lymphocytes # (Manual) APTT POC ABG pH ABG pH POC ABG pCO2 POC ABG pO2 ABG pO2 ABG HCO3 ABG Base Excess ABG Hemoglobin VBG pH Oxyhemoglobin Sodium Potassium Chloride Carbon Dioxide BUN Creatinine Glucose POC Glucose 147 H 243 H 116 H Lactic Acid Calcium AST ALT Alkaline Phosphatase CK-MB (CK-2) CK-MB (CK-2) Rel Index Total Protein Albumin TSH Urine WBC (Auto) Salicylates 05/13/17 05/13/17 05/13/17 05:28 13:49 21:29 WBC RBC Hgb Hct MCV MCH RDW Plt Count Lymph % (Auto) [place] % (Auto) Eos % (Auto) [place] # Seg Neutrophils % Seg Neuts % (Manual) Lymphocytes % (Manual) Seg Neutrophils # Seg Neutrophils # Man Lymphocytes # (Manual) APTT POC ABG pH ABG pH POC ABG pCO2 POC ABG pO2 ABG pO2 ABG HCO3 ABG Base Excess ABG Hemoglobin VBG pH Oxyhemoglobin Sodium Potassium Chloride Carbon Dioxide BUN Creatinine Glucose POC Glucose 213 H 224 H 379 H Lactic Acid Calcium AST ALT Alkaline Phosphatase CK-MB (CK-2) CK-MB (CK-2) Rel Index Total Protein Albumin TSH Urine WBC (Auto) Salicylates 05/14/17 05/14/17 05/14/17 05:17 13:35 21:23 WBC RBC Hgb Hct MCV MCH RDW Plt Count Lymph % (Auto) [place] % (Auto) Eos % (Auto) Riley # Seg Neutrophils % Seg Neuts % (Manual) Lymphocytes % (Manual) Seg Neutrophils # Seg Neutrophils # Man Lymphocytes # (Manual) APTT POC ABG pH ABG pH POC ABG pCO2 POC ABG pO2 ABG pO2 ABG HCO3 ABG Base Excess ABG Hemoglobin VBG pH Oxyhemoglobin Sodium Potassium Chloride Carbon Dioxide BUN Creatinine Glucose POC Glucose 234 H 242 H 218 H Lactic Acid Calcium AST ALT Alkaline Phosphatase CK-MB (CK-2) CK-MB (CK-2) Rel Index Total Protein Albumin TSH Urine WBC (Auto) Salicylates 05/15/17 05/15/17 05/16/17 04:58 13:53 01:34 WBC RBC Hgb Hct MCV MCH RDW Plt Count Lymph % (Auto) [place] % (Auto) Eos % (Auto) Riley # Seg Neutrophils % Seg Neuts % (Manual) Lymphocytes % (Manual) Seg Neutrophils # Seg Neutrophils # Man Lymphocytes # (Manual) APTT POC ABG pH ABG pH POC ABG pCO2 POC ABG pO2 ABG pO2 ABG HCO3 ABG Base Excess ABG Hemoglobin VBG pH Oxyhemoglobin Sodium Potassium Chloride Carbon Dioxide BUN Creatinine Glucose POC Glucose 310 H 193 H 263 H Lactic Acid Calcium AST ALT Alkaline Phosphatase CK-MB (CK-2) CK-MB (CK-2) Rel Index Total Protein Albumin TSH Urine WBC (Auto) Salicylates 05/16/17 06:03 WBC RBC Hgb Hct MCV MCH RDW Plt Count Lymph % (Auto) Riley % (Auto) Eos % (Auto) Riley # Seg Neutrophils % Seg Neuts % (Manual) Lymphocytes % (Manual) Seg Neutrophils # Seg Neutrophils # Man Lymphocytes # (Manual) APTT POC ABG pH ABG pH POC ABG pCO2 POC ABG pO2 ABG pO2 ABG HCO3 ABG Base Excess ABG Hemoglobin VBG pH Oxyhemoglobin Sodium Potassium Chloride Carbon Dioxide BUN Creatinine Glucose POC Glucose 330 H Lactic Acid Calcium AST ALT Alkaline Phosphatase CK-MB (CK-2) CK-MB (CK-2) Rel Index Total Protein Albumin TSH Urine WBC (Auto) Salicylates
[2017-05-16] MEDS: HEPARIN SUB-Q SCH (10:41)
[2017-05-16] MEDS: PEPCID PO SCH (10:41)
[2017-05-16] MEDS: LEVEMIR (NF) SUB-Q SCH (10:41)
[2017-05-16] MEDS: HumuLIN R SUB-Q SCH (14:40)
--- NOTE | 2017-05-16 17:13 | Progress Note ---
Assessment and Plan Assessment and plan: Persistent Vegetative state Irreversible brain damage secondary to hypoglycemia Metabolic encephalopathy Hypoglycemia/hypothermia Acute respiratory failure Myxedema coma Leukocytosis hyponatremia, resolved - Continue supportive care, no labs or antibiotics are needed - Awaiting on court ordered /state guardianship, to transfer to Hospice care. Still pending History Interval history: Patient was seen and evaluated this morning, patient is comatose, on mechanical ventilation, patient is in persistent vegetative state. Hospitalist Physical - Physical exam Narrative exam: Intubated and on mechanical ventilation. The patientis cachectic. Vital signs as documented. Head exam is unremarkable. No scleral icterus . Neck is without jugular venous distension, thyromegaly, or carotid bruits. Lungs are clear to auscultation. Cardiac exam reveals regular rate and Rhythm. Abdominal exam reveals normal bowel sounds. HEBREW CANTOR: Comatose. - Constitutional Vitals: Temp Pulse Resp BP Pulse Ox 97.6 F 68 17 107/70 100 05/16/17 08:00 05/16/17 16:01 05/16/17 14:00 05/16/17 16:01 05/16/17 16:01 General appearance: Present: no acute distress Results - Labs CBC & Chem 7: 04/28/17 05:10 04/28/17 05:10 Labs: Laboratory Last Values WBC 9.3 K/mm3 (4.5-11.0) 04/28/17 05:10 RBC 3.48 M/mm3 (3.65-5.03) L 04/28/17 05:10 Hgb 8.8 gm/dl (11.8-15.2) L 04/28/17 05:10 Hct 26.7 % (35.5-45.6) L 04/28/17 05:10 MCV 77 fl (84-94) L 04/28/17 05:10 MCH 25 pg (28-32) L 04/28/17 05:10 MCHC 33 % (32-34) 04/28/17 05:10 RDW 17.0 % (13.2-15.2) H 04/28/17 05:10 Plt Count 515 K/mm3 (140-440) H 04/28/17 05:10 Lymph % (Auto) 18.4 % (13.4-35.0) 04/28/17 05:10 [place] % (Auto) 8.4 % (0.0-7.3) H 04/28/17 05:10 Eos % (Auto) 1.8 % (0.0-4.3) 04/28/17 05:10 Baso % (Auto) 0.8 % (0.0-1.8) 04/28/17 05:10 Lymph # 1.7 K/mm3 (1.2-5.4) 04/28/17 05:10 [place] # 0.8 K/mm3 (0.0-0.8) 04/28/17 05:10 Eos # 0.2 K/mm3 (0.0-0.4) 04/28/17 05:10 Baso # 0.1 K/mm3 (0.0-0.1) 04/28/17 05:10 Add Manual Diff Complete 01/10/17 04:30 Total Counted 100 01/10/17 04:30 Seg Neutrophils % 70.6 % (40.0-70.0) H 04/28/17 05:10 Seg Neuts % (Manual) 88.0 % (40.0-70.0) H 01/10/17 04:30 Band Neutrophils % 7.0 % 01/10/17 04:30 Lymphocytes % (Manual) 4.0 % (13.4-35.0) L 01/10/17 04:30 Reactive Lymphs % (Man) 0 % 01/10/17 04:30 Monocytes % (Manual) 1.0 % (0.0-7.3) 01/10/17 04:30 Eosinophils % (Manual) 0 % (0.0-4.3) 01/10/17 04:30 Basophils % (Manual) 0 % (0.0-1.8) 01/10/17 04:30 Metamyelocytes % 0 % 01/10/17 04:30 Myelocytes % 0 % 01/10/17 04:30 Promyelocytes % 0 % 01/10/17 04:30 Blast Cells % 0 % 01/10/17 04:30 Nucleated RBC % Not Reportable 01/10/17 04:30 Seg Neutrophils # 6.6 K/mm3 (1.8-7.7) 04/28/17 05:10 Seg Neutrophils # Man 21.2 K/mm3 (1.8-7.7) H 01/10/17 04:30 Band Neutrophils # 1.7 K/mm3 01/10/17 04:30 Lymphocytes # (Manual) 1.0 K/mm3 (1.2-5.4) L 01/10/17 04:30 Abs React Lymphs (Man) 0.0 K/mm3 01/10/17 04:30 Monocytes # (Manual) 0.2 K/mm3 (0.0-0.8) 01/10/17 04:30 Eosinophils # (Manual) 0.0 K/mm3 (0.0-0.4) 01/10/17 04:30 Basophils # (Manual) 0.0 K/mm3 (0.0-0.1) 01/10/17 04:30 Metamyelocytes # 0.0 K/mm3 01/10/17 04:30 Myelocytes # 0.0 K/mm3 01/10/17 04:30 Promyelocytes # 0.0 K/mm3 01/10/17 04:30 Blast Cells # 0.0 K/mm3 01/10/17 04:30 WBC Morphology Not Reportable 01/10/17 04:30 Hypersegmented Neuts Not Reportable 01/10/17 04:30 Hyposegmented Neuts Not Reportable 01/10/17 04:30 Hypogranular Neuts Not Reportable 01/10/17 04:30 Smudge Cells Not Reportable 01/10/17 04:30 Toxic Granulation Not Reportable 01/10/17 04:30 Toxic Vacuolation Not Reportable 01/10/17 04:30 Dohle Bodies Not Reportable 01/10/17 04:30 Pelger-Huet Anomaly Not Reportable 01/10/17 04:30 [place] Rods Not Reportable 01/10/17 04:30 Platelet Estimate Consistent w auto 01/10/17 04:30 Clumped Platelets Not Reportable 01/10/17 04:30 Plt Clumps, EDTA Not Reportable 01/10/17 04:30 Large Platelets Not Reportable 01/10/17 04:30 Giant Platelets Not Reportable 01/10/17 04:30 Platelet Satelliting Not Reportable 01/10/17 04:30 Plt Morphology Comment Not Reportable 01/10/17 04:30 RBC Morphology Not Reportable 01/10/17 04:30 Dimorphic RBCs Not Reportable 01/10/17 04:30 Polychromasia Not Reportable 01/10/17 04:30 Hypochromasia 1+ 01/10/17 04:30 Poikilocytosis Not Reportable 01/10/17 04:30 Anisocytosis Not Reportable 01/10/17 04:30 Microcytosis Not Reportable 01/10/17 04:30 Macrocytosis Not Reportable 01/10/17 04:30 Spherocytes Not Reportable 01/10/17 04:30 Pappenheimer Bodies Not Reportable 01/10/17 04:30 Sickle Cells Not Reportable 01/10/17 04:30 Target Cells Not Reportable 01/10/17 04:30 Tear Drop Cells Not Reportable 01/10/17 04:30 Ovalocytes Not Reportable 01/10/17 04:30 Helmet Cells Not Reportable 01/10/17 04:30 [place] Bodies Not Reportable 01/10/17 04:30 [place] Rings Not Reportable 01/10/17 04:30 Jessica Cells Not Reportable 01/10/17 04:30 Bite Cells Not Reportable 01/10/17 04:30 Crenated Cell Not Reportable 01/10/17 04:30 Elliptocytes Not Reportable 01/10/17 04:30 Acanthocytes (Spur) Not Reportable 01/10/17 04:30 Rouleaux Not Reportable 01/10/17 04:30 Hemoglobin C Crystals Not Reportable 01/10/17 04:30 Schistocytes Not Reportable 01/10/17 04:30 Malaria parasites Not Reportable 01/10/17 04:30 Kyle Bodies Not Reportable 01/10/17 04:30 Hem Pathologist Commnt No 01/10/17 04:30 PT 14.1 Sec. (12.2-14.9) 01/17/17 04:10 INR 1.04 (0.87-1.13) 01/17/17 04:10 APTT 36.6 Sec. (24.2-36.6) 01/17/17 04:10 POC ABG pH 7.442 (7.35-7.45) 01/31/17 18:55 ABG pH 7.420 pH Units (7.350-7.450) 01/17/17 04:35 POC ABG pCO2 32.8 (35-45) L 01/31/17 18:55 ABG pCO2 34.5 mm Hg 01/17/17 04:35 POC ABG pO2 82 (80-105) 01/31/17 18:55 ABG pO2 160.3 mm Hg (80.0-90.0) H 01/17/17 04:35 POC ABG HCO3 22.4 01/31/17 18:55 ABG HCO3 21.9 mmol/L (20.0-26.0) 01/17/17 04:35 POC ABG Total CO2 23 01/31/17 18:55 POC ABG O2 Sat 97 01/31/17 18:55 ABG O2 Saturation 99.0 % (95.0-99.0) 01/17/17 04:35 ABG O2 Content 11.1 (0.0-44) 01/17/17 04:35 POC ABG Base Excess -2 01/31/17 18:55 ABG Base Excess -2.3 mmol/L (-2.0-3.0) L 01/17/17 04:35 ABG Hemoglobin 7.9 gm/dl (14.0-18.0) L 01/17/17 04:35 ABG Carboxyhemoglobin 1.5 % (0.0-5.0) 01/17/17 04:35 ABG Methemoglobin 0.5 % (0.0-1.5) 01/17/17 04:35 VBG pH 7.284 (7.320-7.420) L 01/09/17 10:16 Oxyhemoglobin 97.1 % (95.0-99.0) 01/17/17 04:35 FiO2 25 % 01/31/17 18:55 Sodium 136 mmol/L (137-145) L 04/28/17 05:10 Potassium 4.5 mmol/L (3.6-5.0) 04/28/17 05:10 Chloride 95.2 mmol/L (98-107) L 04/28/17 05:10 Carbon Dioxide 27 mmol/L (22-30) 04/28/17 05:10 Anion Gap 18 mmol/L 04/28/17 05:10 BUN 42 mg/dL (9-20) H 04/28/17 05:10 Creatinine 0.9 mg/dL (0.8-1.5) 04/28/17 05:10 Estimated GFR > 60 ml/min 04/28/17 05:10 BUN/Creatinine Ratio 47 % 04/28/17 05:10 Glucose 63 mg/dL (75-100) L 04/28/17 05:10 POC Glucose 330 (70-105) H 05/16/17 06:03 Lactic Acid 0.80 mmol/L (0.7-2.0) 01/30/17 11:49 Calcium 9.1 mg/dL (8.4-10.2) 04/28/17 05:10 Phosphorus 3.10 mg/dL (2.5-4.5) 03/29/17 04:32 Magnesium 1.90 mg/dL (1.7-2.3) 03/29/17 04:32 Total Bilirubin 0.50 mg/dL (0.1-1.2) 04/28/17 05:10 AST 45 units/L (5-40) H 04/28/17 05:10 ALT 42 units/L (7-56) 04/28/17 05:10 Alkaline Phosphatase 271 units/L (35-129) H 04/28/17 05:10 Ammonia 35.0 umol/L (25-60) 01/09/17 10:16 Total Creatine Kinase 135 units/L (55-170) 01/09/17 10:16 CK-MB (CK-2) 7.1 ng/mL (0.0-4.0) H 01/09/17 10:16 CK-MB (CK-2) Rel Index 5.2 (0-4) H 01/09/17 10:16 Troponin T < 0.010 ng/mL (0.00-0.029) 01/09/17 10:16 NT-Pro-B Natriuret Pep 602.9 pg/mL (0-900) 01/09/17 10:16 Total Protein 8.9 g/dL (6.3-8.2) H 04/28/17 05:10 Albumin 2.5 g/dL (3.9-5) L 04/28/17 05:10 Albumin/Globulin Ratio 0.4 % 04/28/17 05:10 TSH 52.800 mlU/mL (0.270-4.200) H 01/09/17 10:16 Free T4 0.78 ng/dL (0.76-1.46) 01/09/17 10:16 Total Cortisol 54.8 mcg/dL () 01/09/17 16:19 Urine Color Yellow (Yellow) 01/28/17 17:52 Urine Turbidity Clear (Clear) 01/28/17 17:52 Urine pH 6.0 (5.0-7.0) 01/28/17 17:52 Ur Specific [place] 1.016 (1.003-1.030) 01/28/17 17:52 Urine Protein 100 mg/dl mg/dL (Negative) 01/28/17 17:52 Urine Glucose (UA) >=500 mg/dL (Negative) 01/28/17 17:52 Urine Ketones Neg mg/dL (Negative) 01/28/17 17:52 Urine Blood Sm (Negative) 01/28/17 17:52 Urine Nitrite Neg (Negative) 01/28/17 17:52 Urine Bilirubin Neg (Negative) 01/28/17 17:52 Urine Urobilinogen < 2.0 mg/dL (<2.0) 01/28/17 17:52 Ur Leukocyte Esterase Lg (Negative) 01/28/17 17:52 Urine WBC (Auto) > 182.0 /HPF (0.0-6.0) H 01/28/17 17:52 Urine RBC (Auto) 113.0 /HPF (0.0-6.0) 01/28/17 17:52 Urine Bacteria (Auto) 2+ /HPF (Negative) 01/28/17 17:52 Urine WBC Clumps 3+ /HPF 01/28/17 17:52 Urine Mucus Few /HPF 01/14/17 14:07 Urine Yeast (Budding) 3+ /HPF 01/14/17 14:07 Salicylates < 0.3 mg/dL (2.8-20.0) L 01/09/17 10:16 Urine Opiates Screen Presumptive negative 01/09/17 10:23 Urine Methadone Screen Presumptive negative 01/09/17 10:23 Acetaminophen < 15.0 ug/mL (10.0-30.0) 01/09/17 10:16 Ur Barbiturates Screen Presumptive negative 01/09/17 10:23 Ur Phencyclidine Scrn Presumptive negative 01/09/17 10:23 Ur Amphetamines Screen Presumptive negative 01/09/17 10:23 U Benzodiazepines Scrn Presumptive negative 01/09/17 10:23 Urine Cocaine Screen Presumptive negative 01/09/17 10:23 U Marijuana (THC) Screen Presumptive negative 01/09/17 10:23 Drugs of Abuse Note Disclamer 01/09/17 10:23 Plasma/Serum Alcohol < 0.01 gm% (0-0.07) 01/09/17 10:16
[2017-05-17] MEDS: LEVEMIR (NF) SUB-Q SCH (08:00)
[2017-05-17] MEDS: HEPARIN SUB-Q SCH ×2 (09:09→22:21)
[2017-05-17] MEDS: PEPCID PO SCH ×2 (09:13→22:21)
[2017-05-17] MEDS: HumuLIN R SUB-Q SCH ×4 (09:15→22:21)
--- NOTE | 2017-05-17 09:27 | Progress Note ---
Assessment and Plan Hypoglycemic brain injury Persistent vegetative state Metabolic encephalopathy Hypoglycemia/hypothermia, resolved Acute respiratory failure on mechanical ventilator dependent UTI with klebsiella, treated ( Cx + on 01/28), then with ESBL likely colonization hyponatremia, stable Hypothyroidism IDDM Hypertension low grade Fever, intermittently spikes temp - Cont supportive care and current medication. Monitor vitals, repeat cx on - no growth - increased dose of long acting insulin to 15 unit - Patient is DNR- needs guardianship from the state to give consent for further management, as has no family to give consent. Brief History: 51 YO Male with CKD,HTN, DM presents to ED after found down and unresponsive by his neighbor, who subsequently called EMS. Upon arrival, patient found unresponsive on the floor with a serum glucose of 21, patient has a known history of alcohol abuse and delirium tremens. The patient was administered D5 approximate 500 mls during transport without change in mental status/level of consciousness. Pt seen and evaluated in ED was was found to be unable to protect his airway. Pt was intubated and placed on vent support. Pt found to have evidence of hypothyroidism. He was started on Synthroid. He has since been in the ICU. enterprise services manager try to locate family, even spoke to the friends who he lives with. They themselves were unaware of any family members. After ethics committee meeting on the patient, the decision was made to make him DO NOT RESUSCITATE and to transfer him to hospice. Given his very poor prognosis and poor likelihood of recovery. It was decided that was not his best interest to get trach and PEG. Therefore he'll be transferred to the hospice intubated. Now Awaiting on court order /state guardianship. Hospitalist Physical - Physical exam Narrative exam: General: open eyes HEENT: Moist mucous membranes, , no lymphadenopathy Neck: supple Cardiac: S1-S2 heard Lungs: mechnical ventilated breath sounds Abdomen: soft , nontender, nondistended, bowel sounds positive Extremities: no edema clubbing or cyanosis Skin: no rash or lesions Neurologic: opens eyes, withdraws from painful stimuli, does not follow commend Subjective Date of service: 05/17/17 Principal diagnosis: Acute respiratory failure,encephalopathy Interval history: afebrile o/n, BG stable Objective - Constitutional Vitals: Vital Signs - 12hr 05/16/17 05/16/17 05/17/17 22:00 23:31 00:00 Temperature 98.1 F Pulse Rate 68 66 73 Respiratory 12 19 Rate Blood Pressure 116/70 116/70 121/73 O2 Sat by Pulse 100 100 99 Oximetry 05/17/17 05/17/17 05/17/17 02:00 04:00 06:00 Temperature 98.8 F Pulse Rate 73 60 63 Respiratory 14 12 13 Rate Blood Pressure 121/73 117/69 117/69 O2 Sat by Pulse 100 100 100 Oximetry 05/17/17 05/17/17 08:00 09:12 Temperature 97.7 F Pulse Rate 67 67 Respiratory 11 L Rate Blood Pressure 117/69 117/69 O2 Sat by Pulse 100 100 Oximetry - Labs CBC & Chem 7: 04/28/17 05:10 04/28/17 05:10 Labs: Abnormal lab results 05/16/17 05/16/17 05/17/17 Range/Units 14:36 21:59 05:48 POC Glucose 272 H 198 H 204 H (70-105)
[2017-05-18] MEDS: HumuLIN R SUB-Q SCH ×3 (06:54→21:53)
[2017-05-18] MEDS: PEPCID PO SCH ×2 (09:11→21:54)
[2017-05-18] MEDS: HEPARIN SUB-Q SCH ×2 (09:12→21:54)
[2017-05-18] MEDS: LEVEMIR (NF) SUB-Q SCH (09:13)
--- NOTE | 2017-05-18 09:59 | Progress Note ---
Assessment and Plan Acute respiratory failure secondary to metabolic event, prolonged vent support Hypoglycemia/hypothermia - Hypothyroidism; UTI/SIRS.Resolved Metabolic encephalopathy. Main clinical problem, residual vegetative state, sever.No mayor improvement or change Rec: Comfort care measures T of monitoring and suction BS better. Still waiting for decision on health care proxy. See Dr. Horta/[facility] notes regarding power for prosecuting attorney/proxy designation process status. Poor prognosis,unchanged status Subjective Date of service: 05/18/17 Principal diagnosis: Acute respiratory failure,encephalopathy Interval history: No change ,intubated. Objective Vital Signs - 12hr 05/17/17 05/17/17 05/18/17 22:00 23:30 00:00 Temperature 98.0 F Pulse Rate 69 68 Pulse Rate [ From Monitor] Respiratory 12 12 Rate Blood Pressure 107/67 107/73 O2 Sat by Pulse 100 100 Oximetry 05/18/17 05/18/17 05/18/17 00:40 02:00 03:23 Temperature Pulse Rate 67 67 67 Pulse Rate [ From Monitor] Respiratory 10 L Rate Blood Pressure 107/73 107/73 O2 Sat by Pulse 99 99 Oximetry 05/18/17 05/18/17 05/18/17 03:30 03:58 04:00 Temperature 98.6 F Pulse Rate 68 68 Pulse Rate [ From Monitor] Respiratory 12 Rate Blood Pressure 107/73 97/67 O2 Sat by Pulse 99 98 Oximetry 05/18/17 05/18/17 05/18/17 06:00 08:00 08:10 Temperature 99.5 F Pulse Rate 68 Pulse Rate [ 74 From Monitor] Respiratory 12 20 Rate Blood Pressure 97/67 O2 Sat by Pulse 100 99 Oximetry 05/18/17 08:50 Temperature Pulse Rate 70 Pulse Rate [ From Monitor] Respiratory 15 Rate Blood Pressure 104/69 O2 Sat by Pulse 99 Oximetry Constitutional: no acute distress, alert, other (on vent) Eyes: non-icteric ENT: oropharynx moist, other (ETT in position) Neck: supple Effort: normal Ascultation: Bilateral: clear, diminished breath sounds Cardiovascular: regular rate and rhythm (no mrg) Gastrointestinal: normoactive bowel sounds, soft, non-tender, non-distended Integumentary: normal Extremities: no cyanosis, no edema, pink and warm Neurologic: pupils equal and round, other (not following commands,mild response to pain) Psychiatric: other (unable to obtain) CBC and BMP: 04/28/17 05:10 04/28/17 05:10 ABG, PT/INR, D-dimer: ABG POC ABG pH 7.442 (7.35-7.45) 01/31/17 18:55 ABG pH 7.420 pH Units (7.350-7.450) 01/17/17 04:35 POC ABG pCO2 32.8 (35-45) L 01/31/17 18:55 ABG pCO2 34.5 mm Hg 01/17/17 04:35 POC ABG pO2 82 (80-105) 01/31/17 18:55 ABG pO2 160.3 mm Hg (80.0-90.0) H 01/17/17 04:35 POC ABG HCO3 22.4 01/31/17 18:55 POC ABG Total CO2 23 01/31/17 18:55 POC ABG O2 Sat 97 01/31/17 18:55 ABG O2 Saturation 99.0 % (95.0-99.0) 01/17/17 04:35 PT/INR, D-dimer PT 14.1 Sec. (12.2-14.9) 01/17/17 04:10 INR 1.04 (0.87-1.13) 01/17/17 04:10 Abnormal lab findings: Abnormal Labs 01/09/17 01/09/17 01/09/17 10:16 10:16 10:16 WBC RBC Hgb 9.7 L Hct 28.4 L MCV 76 L MCH 26 L RDW 17.2 H Plt Count 448 H Lymph % (Auto) [place] % (Auto) Eos % (Auto) [place] # Seg Neutrophils % 79.5 H Seg Neuts % (Manual) Lymphocytes % (Manual) Seg Neutrophils # Seg Neutrophils # Man Lymphocytes # (Manual) APTT 39.6 H POC ABG pH ABG pH POC ABG pCO2 POC ABG pO2 ABG pO2 ABG HCO3 ABG Base Excess ABG Hemoglobin VBG pH Oxyhemoglobin Sodium 132 L Potassium Chloride 96.7 L Carbon Dioxide 21 L BUN 34 H Creatinine Glucose POC Glucose Lactic Acid Calcium 8.3 L AST ALT Alkaline Phosphatase 151 H CK-MB (CK-2) 7.1 H CK-MB (CK-2) Rel Index 5.2 H Total Protein Albumin 3.3 L TSH Urine WBC (Auto) Salicylates 01/09/17 01/09/17 01/09/17 10:16 10:16 10:16 WBC RBC Hgb Hct MCV MCH RDW Plt Count Lymph % (Auto) [place] % (Auto) Eos % (Auto) [place] # Seg Neutrophils % Seg Neuts % (Manual) Lymphocytes % (Manual) Seg Neutrophils # Seg Neutrophils # Man Lymphocytes # (Manual) APTT POC ABG pH ABG pH POC ABG pCO2 POC ABG pO2 ABG pO2 ABG HCO3 ABG Base Excess ABG Hemoglobin VBG pH 7.284 L Oxyhemoglobin Sodium Potassium Chloride Carbon Dioxide BUN Creatinine Glucose POC Glucose Lactic Acid Calcium AST ALT Alkaline Phosphatase CK-MB (CK-2) CK-MB (CK-2) Rel Index Total Protein Albumin TSH 52.800 H Urine WBC (Auto) Salicylates < 0.3 L 01/09/17 01/09/17 01/09/17 10:23 11:14 12:49 WBC RBC Hgb Hct MCV MCH RDW Plt Count Lymph % (Auto) [place] % (Auto) Eos % (Auto) [place] # Seg Neutrophils % Seg Neuts % (Manual) Lymphocytes % (Manual) Seg Neutrophils # Seg Neutrophils # Man Lymphocytes # (Manual) APTT POC ABG pH ABG pH POC ABG pCO2 POC ABG pO2 643 H ABG pO2 ABG HCO3 ABG Base Excess ABG Hemoglobin VBG pH Oxyhemoglobin Sodium Potassium Chloride Carbon Dioxide BUN Creatinine Glucose POC Glucose < 40 L Lactic Acid Calcium AST ALT Alkaline Phosphatase CK-MB (CK-2) CK-MB (CK-2) Rel Index Total Protein Albumin TSH Urine WBC (Auto) 61.0 H Salicylates 01/09/17 01/09/17 01/09/17 13:13 14:21 15:09 WBC RBC Hgb Hct MCV MCH RDW Plt Count Lymph % (Auto) [place] % (Auto) Eos % (Auto) [place] # Seg Neutrophils % Seg Neuts % (Manual) Lymphocytes % (Manual) Seg Neutrophils # Seg Neutrophils # Man Lymphocytes # (Manual) APTT POC ABG pH ABG pH POC ABG pCO2 POC ABG pO2 ABG pO2 ABG HCO3 ABG Base Excess ABG Hemoglobin VBG pH Oxyhemoglobin Sodium Potassium Chloride Carbon Dioxide BUN Creatinine Glucose POC Glucose 128 H 65 L 120 H Lactic Acid Calcium AST ALT Alkaline Phosphatase CK-MB (CK-2) CK-MB (CK-2) Rel Index Total Protein Albumin TSH Urine WBC (Auto) Salicylates 01/09/17 01/09/17 01/10/17 16:28 17:14 04:30 WBC 24.1 H RBC 3.38 L Hgb 8.5 L Hct 26.0 L MCV 77 L MCH 25 L RDW 17.9 H Plt Count 474 H Lymph % (Auto) [place] % (Auto) Eos % (Auto) [place] # Seg Neutrophils % Seg Neuts % (Manual) 88.0 H Lymphocytes % (Manual) 4.0 L Seg Neutrophils # Seg Neutrophils # Man 21.2 H Lymphocytes # (Manual) 1.0 L APTT POC ABG pH ABG pH POC ABG pCO2 POC ABG pO2 ABG pO2 ABG HCO3 ABG Base Excess ABG Hemoglobin VBG pH Oxyhemoglobin Sodium Potassium Chloride Carbon Dioxide BUN Creatinine Glucose POC Glucose 44 L 112 H Lactic Acid Calcium AST ALT Alkaline Phosphatase CK-MB (CK-2) CK-MB (CK-2) Rel Index Total Protein Albumin TSH Urine WBC (Auto) Salicylates 01/10/17 01/10/17 01/10/17 04:30 05:41 05:45 WBC RBC Hgb Hct MCV MCH RDW Plt Count Lymph % (Auto) [place] % (Auto) Eos % (Auto) [place] # Seg Neutrophils % Seg Neuts % (Manual) Lymphocytes % (Manual) Seg Neutrophils # Seg Neutrophils # Man Lymphocytes # (Manual) APTT POC ABG pH ABG pH POC ABG pCO2 26.6 L POC ABG pO2 207 H ABG pO2 ABG HCO3 ABG Base Excess ABG Hemoglobin VBG pH Oxyhemoglobin Sodium Potassium Chloride Carbon Dioxide 17 L BUN 27 H Creatinine Glucose POC Glucose 68 L Lactic Acid Calcium 7.5 L AST ALT Alkaline Phosphatase CK-MB (CK-2) CK-MB (CK-2) Rel Index Total Protein Albumin TSH Urine WBC (Auto) Salicylates 01/10/17 01/10/17 01/10/17 07:47 10:50 13:41 WBC RBC Hgb Hct MCV MCH RDW Plt Count Lymph % (Auto) [place] % (Auto) Eos % (Auto) [place] # Seg Neutrophils % Seg Neuts % (Manual) Lymphocytes % (Manual) Seg Neutrophils # Seg Neutrophils # Man Lymphocytes # (Manual) APTT POC ABG pH ABG pH POC ABG pCO2 POC ABG pO2 ABG pO2 ABG HCO3 ABG Base Excess ABG Hemoglobin VBG pH Oxyhemoglobin Sodium Potassium Chloride Carbon Dioxide BUN Creatinine Glucose POC Glucose 148 H 165 H 114 H Lactic Acid Calcium AST ALT Alkaline Phosphatase CK-MB (CK-2) CK-MB (CK-2) Rel Index Total Protein Albumin TSH Urine WBC (Auto) Salicylates 01/10/17 01/10/17 01/10/17 20:20 21:39 23:24 WBC RBC Hgb Hct MCV MCH RDW Plt Count Lymph % (Auto) [place] % (Auto) Eos % (Auto) [place] # Seg Neutrophils % Seg Neuts % (Manual) Lymphocytes % (Manual) Seg Neutrophils # Seg Neutrophils # Man Lymphocytes # (Manual) APTT POC ABG pH ABG pH POC ABG pCO2 POC ABG pO2 ABG pO2 ABG HCO3 ABG Base Excess ABG Hemoglobin VBG pH Oxyhemoglobin Sodium Potassium Chloride Carbon Dioxide BUN Creatinine Glucose POC Glucose 150 H 175 H 155 H Lactic Acid Calcium AST ALT Alkaline Phosphatase CK-MB (CK-2) CK-MB (CK-2) Rel Index Total Protein Albumin TSH Urine WBC (Auto) Salicylates 01/11/17 01/11/17 01/11/17 00:19 04:06 05:20 WBC 15.2 H RBC 3.40 L Hgb 8.9 L Hct 26.3 L MCV 78 L MCH 26 L RDW 18.6 H Plt Count 462 H Lymph % (Auto) 13.2 L [place] % (Auto) Eos % (Auto) [place] # Seg Neutrophils % 80.8 H Seg Neuts % (Manual) Lymphocytes % (Manual) Seg Neutrophils # 12.3 H Seg Neutrophils # Man Lymphocytes # (Manual) APTT POC ABG pH 7.463 H ABG pH POC ABG pCO2 26.2 L POC ABG pO2 185 H ABG pO2 ABG HCO3 ABG Base Excess ABG Hemoglobin VBG pH Oxyhemoglobin Sodium Potassium Chloride Carbon Dioxide BUN Creatinine Glucose POC Glucose 163 H Lactic Acid Calcium AST ALT Alkaline Phosphatase CK-MB (CK-2) CK-MB (CK-2) Rel Index Total Protein Albumin TSH Urine WBC (Auto) Salicylates 01/11/17 01/11/17 01/11/17 05:20 06:21 07:57 WBC RBC Hgb Hct MCV MCH RDW Plt Count Lymph % (Auto) [place] % (Auto) Eos % (Auto) [place] # Seg Neutrophils % Seg Neuts % (Manual) Lymphocytes % (Manual) Seg Neutrophils # Seg Neutrophils # Man Lymphocytes # (Manual) APTT POC ABG pH ABG pH POC ABG pCO2 POC ABG pO2 ABG pO2 ABG HCO3 ABG Base Excess ABG Hemoglobin VBG pH Oxyhemoglobin Sodium Potassium 3.4 L Chloride 111.5 H Carbon Dioxide 17 L BUN Creatinine Glucose 147 H POC Glucose 139 H 188 H Lactic Acid Calcium 8.0 L AST ALT Alkaline Phosphatase CK-MB (CK-2) CK-MB (CK-2) Rel Index Total Protein Albumin TSH Urine WBC (Auto) Salicylates 01/11/17 01/11/17 01/11/17 11:46 16:50 23:15 WBC RBC Hgb Hct MCV MCH RDW Plt Count Lymph % (Auto) [place] % (Auto) Eos % (Auto) [place] # Seg Neutrophils % Seg Neuts % (Manual) Lymphocytes % (Manual) Seg Neutrophils # Seg Neutrophils # Man Lymphocytes # (Manual) APTT POC ABG pH ABG pH POC ABG pCO2 POC ABG pO2 ABG pO2 ABG HCO3 ABG Base Excess ABG Hemoglobin VBG pH Oxyhemoglobin Sodium Potassium Chloride Carbon Dioxide BUN Creatinine Glucose POC Glucose 199 H 235 H 155 H Lactic Acid Calcium AST ALT Alkaline Phosphatase CK-MB (CK-2) CK-MB (CK-2) Rel Index Total Protein Albumin TSH Urine WBC (Auto) Salicylates 01/12/17 01/12/17 01/12/17 05:02 06:56 14:50 WBC RBC Hgb Hct MCV MCH RDW Plt Count Lymph % (Auto) [place] % (Auto) Eos % (Auto) [place] # Seg Neutrophils % Seg Neuts % (Manual) Lymphocytes % (Manual) Seg Neutrophils # Seg Neutrophils # Man Lymphocytes # (Manual) APTT POC ABG pH ABG pH POC ABG pCO2 28.0 L POC ABG pO2 178 H ABG pO2 ABG HCO3 ABG Base Excess ABG Hemoglobin VBG pH Oxyhemoglobin Sodium Potassium Chloride Carbon Dioxide BUN Creatinine Glucose POC Glucose 119 H 164 H Lactic Acid Calcium AST ALT Alkaline Phosphatase CK-MB (CK-2) CK-MB (CK-2) Rel Index Total Protein Albumin TSH Urine WBC (Auto) Salicylates 01/13/17 01/13/17 01/13/17 03:37 03:37 04:26 WBC RBC 3.61 L Hgb 9.3 L Hct 28.0 L MCV 78 L MCH 26 L RDW 18.2 H Plt Count Lymph % (Auto) [place] % (Auto) Eos % (Auto) [place] # Seg Neutrophils % Seg Neuts % (Manual) Lymphocytes % (Manual) Seg Neutrophils # Seg Neutrophils # Man Lymphocytes # (Manual) APTT POC ABG pH 7.485 H ABG pH POC ABG pCO2 25.4 L POC ABG pO2 73 L ABG pO2 ABG HCO3 ABG Base Excess ABG Hemoglobin VBG pH Oxyhemoglobin Sodium Potassium Chloride 112.4 H Carbon Dioxide 19 L BUN Creatinine Glucose 118 H POC Glucose Lactic Acid Calcium 8.0 L AST ALT Alkaline Phosphatase CK-MB (CK-2) CK-MB (CK-2) Rel Index Total Protein Albumin TSH Urine WBC (Auto) Salicylates 01/13/17 01/13/17 01/13/17 06:15 11:50 17:31 WBC RBC Hgb Hct MCV MCH RDW Plt Count Lymph % (Auto) [place] % (Auto) Eos % (Auto) [place] # Seg Neutrophils % Seg Neuts % (Manual) Lymphocytes % (Manual) Seg Neutrophils # Seg Neutrophils # Man Lymphocytes # (Manual) APTT POC ABG pH ABG pH POC ABG pCO2 POC ABG pO2 ABG pO2 ABG HCO3 ABG Base Excess ABG Hemoglobin VBG pH Oxyhemoglobin Sodium Potassium Chloride Carbon Dioxide BUN Creatinine Glucose POC Glucose 116 H 171 H 203 H Lactic Acid Calcium AST ALT Alkaline Phosphatase CK-MB (CK-2) CK-MB (CK-2) Rel Index Total Protein Albumin TSH Urine WBC (Auto) Salicylates 01/14/17 01/14/17 01/14/17 00:02 04:50 04:50 WBC RBC 3.32 L Hgb 8.5 L Hct 26.1 L MCV 79 L MCH 26 L RDW 18.2 H Plt Count Lymph % (Auto) [place] % (Auto) 9.0 H Eos % (Auto) [place] # Seg Neutrophils % Seg Neuts % (Manual) Lymphocytes % (Manual) Seg Neutrophils # Seg Neutrophils # Man Lymphocytes # (Manual) APTT POC ABG pH ABG pH POC ABG pCO2 POC ABG pO2 ABG pO2 ABG HCO3 ABG Base Excess ABG Hemoglobin VBG pH Oxyhemoglobin Sodium Potassium Chloride 112.5 H Carbon Dioxide BUN Creatinine Glucose 149 H POC Glucose 157 H Lactic Acid Calcium 8.1 L AST ALT Alkaline Phosphatase CK-MB (CK-2) CK-MB (CK-2) Rel Index Total Protein Albumin TSH Urine WBC (Auto) Salicylates 01/14/17 01/14/17 01/14/17 05:10 11:27 14:07 WBC RBC Hgb Hct MCV MCH RDW Plt Count Lymph % (Auto) [place] % (Auto) Eos % (Auto) [place] # Seg Neutrophils % Seg Neuts % (Manual) Lymphocytes % (Manual) Seg Neutrophils # Seg Neutrophils # Man Lymphocytes # (Manual) APTT POC ABG pH ABG pH POC ABG pCO2 POC ABG pO2 ABG pO2 ABG HCO3 ABG Base Excess ABG Hemoglobin VBG pH Oxyhemoglobin Sodium Potassium Chloride Carbon Dioxide BUN Creatinine Glucose POC Glucose 176 H 147 H Lactic Acid Calcium AST ALT Alkaline Phosphatase CK-MB (CK-2) CK-MB (CK-2) Rel Index Total Protein Albumin TSH Urine WBC (Auto) 53.0 H Salicylates 01/14/17 01/15/17 01/15/17 16:52 00:04 05:26 WBC RBC Hgb Hct MCV MCH RDW Plt Count Lymph % (Auto) [place] % (Auto) Eos % (Auto) [place] # Seg Neutrophils % Seg Neuts % (Manual) Lymphocytes % (Manual) Seg Neutrophils # Seg Neutrophils # Man Lymphocytes # (Manual) APTT POC ABG pH ABG pH POC ABG pCO2 POC ABG pO2 ABG pO2 ABG HCO3 ABG Base Excess ABG Hemoglobin VBG pH Oxyhemoglobin Sodium Potassium Chloride Carbon Dioxide BUN Creatinine Glucose POC Glucose 131 H 193 H 215 H Lactic Acid Calcium AST ALT Alkaline Phosphatase CK-MB (CK-2) CK-MB (CK-2) Rel Index Total Protein Albumin TSH Urine WBC (Auto) Salicylates 01/15/17 01/15/17 01/15/17 11:49 17:47 21:33 WBC RBC Hgb Hct MCV MCH RDW Plt Count Lymph % (Auto) [place] % (Auto) Eos % (Auto) [place] # Seg Neutrophils % Seg Neuts % (Manual) Lymphocytes % (Manual) Seg Neutrophils # Seg Neutrophils # Man Lymphocytes # (Manual) APTT POC ABG pH ABG pH POC ABG pCO2 POC ABG pO2 ABG pO2 ABG HCO3 ABG Base Excess ABG Hemoglobin VBG pH Oxyhemoglobin Sodium Potassium Chloride Carbon Dioxide BUN Creatinine Glucose POC Glucose 121 H 211 H 275 H Lactic Acid Calcium AST ALT Alkaline Phosphatase CK-MB (CK-2) CK-MB (CK-2) Rel Index Total Protein Albumin TSH Urine WBC (Auto) Salicylates 01/16/17 01/16/17 01/16/17 04:30 05:28 13:45 WBC RBC Hgb Hct MCV MCH RDW Plt Count Lymph % (Auto) [place] % (Auto) Eos % (Auto) [place] # Seg Neutrophils % Seg Neuts % (Manual) Lymphocytes % (Manual) Seg Neutrophils # Seg Neutrophils # Man Lymphocytes # (Manual) APTT POC ABG pH ABG pH 7.457 H POC ABG pCO2 POC ABG pO2 ABG pO2 55.1 L ABG HCO3 19.4 L ABG Base Excess -4.0 L ABG Hemoglobin 6.8 L VBG pH Oxyhemoglobin 94.9 L Sodium Potassium Chloride Carbon Dioxide BUN Creatinine Glucose POC Glucose 271 H 236 H Lactic Acid Calcium AST ALT Alkaline Phosphatase CK-MB (CK-2) CK-MB (CK-2) Rel Index Total Protein Albumin TSH Urine WBC (Auto) Salicylates 01/16/17 01/17/17 01/17/17 21:39 04:10 04:10 WBC 4.4 L RBC 2.98 L Hgb 7.7 L Hct 23.3 L MCV 78 L MCH 26 L RDW 18.1 H Plt Count Lymph % (Auto) [place] % (Auto) Eos % (Auto) [place] # Seg Neutrophils % Seg Neuts % (Manual) Lymphocytes % (Manual) Seg Neutrophils # Seg Neutrophils # Man Lymphocytes # (Manual) APTT POC ABG pH ABG pH POC ABG pCO2 POC ABG pO2 ABG pO2 ABG HCO3 ABG Base Excess ABG Hemoglobin VBG pH Oxyhemoglobin Sodium Potassium 3.3 L Chloride 108.7 H Carbon Dioxide 20 L BUN 8 L Creatinine Glucose 202 H POC Glucose 258 H Lactic Acid Calcium 7.6 L AST ALT Alkaline Phosphatase CK-MB (CK-2) CK-MB (CK-2) Rel Index Total Protein Albumin TSH Urine WBC (Auto) Salicylates 01/17/17 01/17/17 01/17/17 04:35 12:23 16:01 WBC RBC Hgb Hct MCV MCH RDW Plt Count Lymph % (Auto) [place] % (Auto) Eos % (Auto) [place] # Seg Neutrophils % Seg Neuts % (Manual) Lymphocytes % (Manual) Seg Neutrophils # Seg Neutrophils # Man Lymphocytes # (Manual) APTT POC ABG pH ABG pH POC ABG pCO2 POC ABG pO2 ABG pO2 160.3 H ABG HCO3 ABG Base Excess -2.3 L ABG Hemoglobin 7.9 L VBG pH Oxyhemoglobin Sodium Potassium Chloride Carbon Dioxide BUN Creatinine Glucose POC Glucose 321 H 239 H Lactic Acid Calcium AST ALT Alkaline Phosphatase CK-MB (CK-2) CK-MB (CK-2) Rel Index Total Protein Albumin TSH Urine WBC (Auto) Salicylates 01/18/17 01/18/17 01/18/17 05:07 12:09 17:54 WBC RBC Hgb Hct MCV MCH RDW Plt Count Lymph % (Auto) [place] % (Auto) Eos % (Auto) [place] # Seg Neutrophils % Seg Neuts % (Manual) Lymphocytes % (Manual) Seg Neutrophils # Seg Neutrophils # Man Lymphocytes # (Manual) APTT POC ABG pH ABG pH POC ABG pCO2 POC ABG pO2 ABG pO2 ABG HCO3 ABG Base Excess ABG Hemoglobin VBG pH Oxyhemoglobin Sodium Potassium Chloride Carbon Dioxide BUN Creatinine Glucose POC Glucose 155 H 203 H 132 H Lactic Acid Calcium AST ALT Alkaline Phosphatase CK-MB (CK-2) CK-MB (CK-2) Rel Index Total Protein Albumin TSH Urine WBC (Auto) Salicylates 01/18/17 01/19/17 01/19/17 23:43 04:28 12:11 WBC RBC Hgb Hct MCV MCH RDW Plt Count Lymph % (Auto) [place] % (Auto) Eos % (Auto) [place] # Seg Neutrophils % Seg Neuts % (Manual) Lymphocytes % (Manual) Seg Neutrophils # Seg Neutrophils # Man Lymphocytes # (Manual) APTT POC ABG pH ABG pH POC ABG pCO2 POC ABG pO2 ABG pO2 ABG HCO3 ABG Base Excess ABG Hemoglobin VBG pH Oxyhemoglobin Sodium Potassium Chloride Carbon Dioxide BUN Creatinine Glucose POC Glucose 125 H 182 H 153 H Lactic Acid Calcium AST ALT Alkaline Phosphatase CK-MB (CK-2) CK-MB (CK-2) Rel Index Total Protein Albumin TSH Urine WBC (Auto) Salicylates 01/19/17 01/20/17 01/20/17 17:23 00:12 05:44 WBC RBC Hgb Hct MCV MCH RDW Plt Count Lymph % (Auto) [place] % (Auto) Eos % (Auto) [place] # Seg Neutrophils % Seg Neuts % (Manual) Lymphocytes % (Manual) Seg Neutrophils # Seg Neutrophils # Man Lymphocytes # (Manual) APTT POC ABG pH ABG pH POC ABG pCO2 POC ABG pO2 ABG pO2 ABG HCO3 ABG Base Excess ABG Hemoglobin VBG pH Oxyhemoglobin Sodium Potassium Chloride Carbon Dioxide BUN Creatinine Glucose POC Glucose 66 L 139 H 176 H Lactic Acid Calcium AST ALT Alkaline Phosphatase CK-MB (CK-2) CK-MB (CK-2) Rel Index Total Protein Albumin TSH Urine WBC (Auto) Salicylates 01/20/17 01/20/17 01/20/17 11:48 17:42 23:43 WBC RBC Hgb Hct MCV MCH RDW Plt Count Lymph % (Auto) [place] % (Auto) Eos % (Auto) [place] # Seg Neutrophils % Seg Neuts % (Manual) Lymphocytes % (Manual) Seg Neutrophils # Seg Neutrophils # Man Lymphocytes # (Manual) APTT POC ABG pH ABG pH POC ABG pCO2 POC ABG pO2 ABG pO2 ABG HCO3 ABG Base Excess ABG Hemoglobin VBG pH Oxyhemoglobin Sodium Potassium Chloride Carbon Dioxide BUN Creatinine Glucose POC Glucose 218 H 132 H 178 H Lactic Acid Calcium AST ALT Alkaline Phosphatase CK-MB (CK-2) CK-MB (CK-2) Rel Index Total Protein Albumin TSH Urine WBC (Auto) Salicylates 01/21/17 01/21/17 01/21/17 05:34 11:17 23:37 WBC RBC Hgb Hct MCV MCH RDW Plt Count Lymph % (Auto) [place] % (Auto) Eos % (Auto) [place] # Seg Neutrophils % Seg Neuts % (Manual) Lymphocytes % (Manual) Seg Neutrophils # Seg Neutrophils # Man Lymphocytes # (Manual) APTT POC ABG pH ABG pH POC ABG pCO2 POC ABG pO2 ABG pO2 ABG HCO3 ABG Base Excess ABG Hemoglobin VBG pH Oxyhemoglobin Sodium Potassium Chloride Carbon Dioxide BUN Creatinine Glucose POC Glucose 106 H 213 H 140 H Lactic Acid Calcium AST ALT Alkaline Phosphatase CK-MB (CK-2) CK-MB (CK-2) Rel Index Total Protein Albumin TSH Urine WBC (Auto) Salicylates 01/22/17 01/22/17 01/22/17 04:00 04:00 04:58 WBC RBC 3.26 L Hgb 8.3 L Hct 25.5 L MCV 78 L MCH 25 L RDW 17.9 H Plt Count Lymph % (Auto) [place] % (Auto) 7.9 H Eos % (Auto) 6.2 H [place] # Seg Neutrophils % Seg Neuts % (Manual) Lymphocytes % (Manual) Seg Neutrophils # Seg Neutrophils # Man Lymphocytes # (Manual) APTT POC ABG pH ABG pH POC ABG pCO2 POC ABG pO2 ABG pO2 ABG HCO3 ABG Base Excess ABG Hemoglobin VBG pH Oxyhemoglobin Sodium Potassium Chloride 95.5 L Carbon Dioxide 31 H D BUN Creatinine Glucose 134 H POC Glucose 146 H Lactic Acid Calcium AST 44 H ALT Alkaline Phosphatase 379 H CK-MB (CK-2) CK-MB (CK-2) Rel Index Total Protein Albumin 2.7 L TSH Urine WBC (Auto) Salicylates 01/22/17 01/22/17 01/22/17 12:12 18:12 23:39 WBC RBC Hgb Hct MCV MCH RDW Plt Count Lymph % (Auto) [place] % (Auto) Eos % (Auto) [place] # Seg Neutrophils % Seg Neuts % (Manual) Lymphocytes % (Manual) Seg Neutrophils # Seg Neutrophils # Man Lymphocytes # (Manual) APTT POC ABG pH ABG pH POC ABG pCO2 POC ABG pO2 ABG pO2 ABG HCO3 ABG Base Excess ABG Hemoglobin VBG pH Oxyhemoglobin Sodium Potassium Chloride Carbon Dioxide BUN Creatinine Glucose POC Glucose 255 H 182 H 134 H Lactic Acid Calcium AST ALT Alkaline Phosphatase CK-MB (CK-2) CK-MB (CK-2) Rel Index Total Protein Albumin TSH Urine WBC (Auto) Salicylates 01/23/17 01/23/17 01/23/17 04:43 12:12 17:36 WBC RBC Hgb Hct MCV MCH RDW Plt Count Lymph % (Auto) [place] % (Auto) Eos % (Auto) [place] # Seg Neutrophils % Seg Neuts % (Manual) Lymphocytes % (Manual) Seg Neutrophils # Seg Neutrophils # Man Lymphocytes # (Manual) APTT POC ABG pH ABG pH POC ABG pCO2 POC ABG pO2 ABG pO2 ABG HCO3 ABG Base Excess ABG Hemoglobin VBG pH Oxyhemoglobin Sodium Potassium Chloride Carbon Dioxide BUN Creatinine Glucose POC Glucose 218 H 128 H 156 H Lactic Acid Calcium AST ALT Alkaline Phosphatase CK-MB (CK-2) CK-MB (CK-2) Rel Index Total Protein Albumin TSH Urine WBC (Auto) Salicylates 01/24/17 01/24/17 01/24/17 00:08 05:16 11:40 WBC RBC Hgb Hct MCV MCH RDW Plt Count Lymph % (Auto) [place] % (Auto) Eos % (Auto) [place] # Seg Neutrophils % Seg Neuts % (Manual) Lymphocytes % (Manual) Seg Neutrophils # Seg Neutrophils # Man Lymphocytes # (Manual) APTT POC ABG pH ABG pH POC ABG pCO2 POC ABG pO2 ABG pO2 ABG HCO3 ABG Base Excess ABG Hemoglobin VBG pH Oxyhemoglobin Sodium Potassium Chloride Carbon Dioxide BUN Creatinine Glucose POC Glucose 129 H 169 H 187 H Lactic Acid Calcium AST ALT Alkaline Phosphatase CK-MB (CK-2) CK-MB (CK-2) Rel Index Total Protein Albumin TSH Urine WBC (Auto) Salicylates 01/24/17 01/24/17 01/25/17 17:43 23:23 04:56 WBC RBC Hgb Hct MCV MCH RDW Plt Count Lymph % (Auto) [place] % (Auto) Eos % (Auto) [place] # Seg Neutrophils % Seg Neuts % (Manual) Lymphocytes % (Manual) Seg Neutrophils # Seg Neutrophils # Man Lymphocytes # (Manual) APTT POC ABG pH ABG pH POC ABG pCO2 POC ABG pO2 ABG pO2 ABG HCO3 ABG Base Excess ABG Hemoglobin VBG pH Oxyhemoglobin Sodium Potassium Chloride Carbon Dioxide BUN Creatinine Glucose POC Glucose 215 H 222 H 210 H Lactic Acid Calcium AST ALT Alkaline Phosphatase CK-MB (CK-2) CK-MB (CK-2) Rel Index Total Protein Albumin TSH Urine WBC (Auto) Salicylates 01/25/17 01/25/17 01/26/17 11:52 17:37 00:02 WBC RBC Hgb Hct MCV MCH RDW Plt Count Lymph % (Auto) [place] % (Auto) Eos % (Auto) [place] # Seg Neutrophils % Seg Neuts % (Manual) Lymphocytes % (Manual) Seg Neutrophils # Seg Neutrophils # Man Lymphocytes # (Manual) APTT POC ABG pH ABG pH POC ABG pCO2 POC ABG pO2 ABG pO2 ABG HCO3 ABG Base Excess ABG Hemoglobin VBG pH Oxyhemoglobin Sodium Potassium Chloride Carbon Dioxide BUN Creatinine Glucose POC Glucose 284 H 218 H 192 H Lactic Acid Calcium AST ALT Alkaline Phosphatase CK-MB (CK-2) CK-MB (CK-2) Rel Index Total Protein Albumin TSH Urine WBC (Auto) Salicylates 01/26/17 01/26/17 01/26/17 05:33 12:17 17:50 WBC RBC Hgb Hct MCV MCH RDW Plt Count Lymph % (Auto) [place] % (Auto) Eos % (Auto) [place] # Seg Neutrophils % Seg Neuts % (Manual) Lymphocytes % (Manual) Seg Neutrophils # Seg Neutrophils # Man Lymphocytes # (Manual) APTT POC ABG pH ABG pH POC ABG pCO2 POC ABG pO2 ABG pO2 ABG HCO3 ABG Base Excess ABG Hemoglobin VBG pH Oxyhemoglobin Sodium Potassium Chloride Carbon Dioxide BUN Creatinine Glucose POC Glucose 199 H 227 H 229 H Lactic Acid Calcium AST ALT Alkaline Phosphatase CK-MB (CK-2) CK-MB (CK-2) Rel Index Total Protein Albumin TSH Urine WBC (Auto) Salicylates 01/26/17 01/27/17 01/27/17 23:57 05:31 11:42 WBC RBC Hgb Hct MCV MCH RDW Plt Count Lymph % (Auto) [place] % (Auto) Eos % (Auto) [place] # Seg Neutrophils % Seg Neuts % (Manual) Lymphocytes % (Manual) Seg Neutrophils # Seg Neutrophils # Man Lymphocytes # (Manual) APTT POC ABG pH ABG pH POC ABG pCO2 POC ABG pO2 ABG pO2 ABG HCO3 ABG Base Excess ABG Hemoglobin VBG pH Oxyhemoglobin Sodium Potassium Chloride Carbon Dioxide BUN Creatinine Glucose POC Glucose 186 H 285 H 260 H Lactic Acid Calcium AST ALT Alkaline Phosphatase CK-MB (CK-2) CK-MB (CK-2) Rel Index Total Protein Albumin TSH Urine WBC (Auto) Salicylates 01/27/17 01/27/17 01/27/17 17:47 23:58 Unknown WBC 12.1 H RBC 3.28 L Hgb 8.5 L Hct 25.5 L MCV 78 L MCH 26 L RDW 16.8 H Plt Count 601 H Lymph % (Auto) [place] % (Auto) Eos % (Auto) [place] # Seg Neutrophils % Seg Neuts % (Manual) Lymphocytes % (Manual) Seg Neutrophils # Seg Neutrophils # Man Lymphocytes # (Manual) APTT POC ABG pH ABG pH POC ABG pCO2 POC ABG pO2 ABG pO2 ABG HCO3 ABG Base Excess ABG Hemoglobin VBG pH Oxyhemoglobin Sodium Potassium Chloride Carbon Dioxide BUN Creatinine Glucose POC Glucose 329 H 225 H Lactic Acid Calcium AST ALT Alkaline Phosphatase CK-MB (CK-2) CK-MB (CK-2) Rel Index Total Protein Albumin TSH Urine WBC (Auto) Salicylates 01/27/17 01/28/17 01/28/17 Unknown 03:44 03:44 WBC RBC 3.14 L Hgb 8.2 L Hct 24.1 L MCV 77 L MCH 26 L RDW 16.9 H Plt Count 567 H Lymph % (Auto) [place] % (Auto) Eos % (Auto) [place] # Seg Neutrophils % Seg Neuts % (Manual) Lymphocytes % (Manual) Seg Neutrophils # Seg Neutrophils # Man Lymphocytes # (Manual) APTT POC ABG pH ABG pH POC ABG pCO2 POC ABG pO2 ABG pO2 ABG HCO3 ABG Base Excess ABG Hemoglobin VBG pH Oxyhemoglobin Sodium 128 L Potassium 5.4 H Chloride 87.5 L Carbon Dioxide BUN 44 H 42 H Creatinine Glucose 250 H 128 H POC Glucose Lactic Acid Calcium AST ALT Alkaline Phosphatase CK-MB (CK-2) CK-MB (CK-2) Rel Index Total Protein Albumin TSH Urine WBC (Auto) Salicylates 01/28/17 01/28/17 01/28/17 11:43 16:47 17:52 WBC RBC Hgb Hct MCV MCH RDW Plt Count Lymph % (Auto) [place] % (Auto) Eos % (Auto) [place] # Seg Neutrophils % Seg Neuts % (Manual) Lymphocytes % (Manual) Seg Neutrophils # Seg Neutrophils # Man Lymphocytes # (Manual) APTT POC ABG pH ABG pH POC ABG pCO2 POC ABG pO2 ABG pO2 ABG HCO3 ABG Base Excess ABG Hemoglobin VBG pH Oxyhemoglobin Sodium Potassium Chloride Carbon Dioxide BUN Creatinine Glucose POC Glucose 351 H 249 H Lactic Acid Calcium AST ALT Alkaline Phosphatase CK-MB (CK-2) CK-MB (CK-2) Rel Index Total Protein Albumin TSH Urine WBC (Auto) > 182.0 H Salicylates 01/29/17 01/29/17 01/29/17 05:25 05:25 09:32 WBC 13.6 H RBC 3.25 L Hgb 8.3 L Hct 25.1 L MCV 77 L MCH 26 L RDW 16.8 H Plt Count 514 H Lymph % (Auto) [place] % (Auto) Eos % (Auto) [place] # Seg Neutrophils % Seg Neuts % (Manual) Lymphocytes % (Manual) Seg Neutrophils # Seg Neutrophils # Man Lymphocytes # (Manual) APTT POC ABG pH ABG pH POC ABG pCO2 POC ABG pO2 ABG pO2 ABG HCO3 ABG Base Excess ABG Hemoglobin VBG pH Oxyhemoglobin Sodium Potassium Chloride 97.8 L Carbon Dioxide BUN 34 H Creatinine Glucose 222 H POC Glucose Lactic Acid 2.50 H* Calcium AST ALT Alkaline Phosphatase CK-MB (CK-2) CK-MB (CK-2) Rel Index Total Protein Albumin TSH Urine WBC (Auto) Salicylates 01/29/17 01/29/17 01/29/17 11:56 18:11 23:55 WBC RBC Hgb Hct MCV MCH RDW Plt Count Lymph % (Auto) [place] % (Auto) Eos % (Auto) [place] # Seg Neutrophils % Seg Neuts % (Manual) Lymphocytes % (Manual) Seg Neutrophils # Seg Neutrophils # Man Lymphocytes # (Manual) APTT POC ABG pH ABG pH POC ABG pCO2 POC ABG pO2 ABG pO2 ABG HCO3 ABG Base Excess ABG Hemoglobin VBG pH Oxyhemoglobin Sodium Potassium Chloride Carbon Dioxide BUN Creatinine Glucose POC Glucose 261 H 215 H 176 H Lactic Acid Calcium AST ALT Alkaline Phosphatase CK-MB (CK-2) CK-MB (CK-2) Rel Index Total Protein Albumin TSH Urine WBC (Auto) Salicylates 01/30/17 01/30/17 01/30/17 05:31 05:31 05:34 WBC 15.2 H RBC 3.09 L Hgb 7.9 L Hct 23.9 L MCV 77 L MCH 26 L RDW 16.9 H Plt Count 569 H Lymph % (Auto) [place] % (Auto) Eos % (Auto) [place] # Seg Neutrophils % Seg Neuts % (Manual) Lymphocytes % (Manual) Seg Neutrophils # Seg Neutrophils # Man Lymphocytes # (Manual) APTT POC ABG pH ABG pH POC ABG pCO2 POC ABG pO2 ABG pO2 ABG HCO3 ABG Base Excess ABG Hemoglobin VBG pH Oxyhemoglobin Sodium Potassium Chloride Carbon Dioxide BUN 24 H Creatinine Glucose 235 H POC Glucose 243 H Lactic Acid Calcium AST ALT Alkaline Phosphatase CK-MB (CK-2) CK-MB (CK-2) Rel Index Total Protein Albumin TSH Urine WBC (Auto) Salicylates 01/30/17 01/30/17 01/30/17 11:38 17:58 23:29 WBC RBC Hgb Hct MCV MCH RDW Plt Count Lymph % (Auto) [place] % (Auto) Eos % (Auto) [place] # Seg Neutrophils % Seg Neuts % (Manual) Lymphocytes % (Manual) Seg Neutrophils # Seg Neutrophils # Man Lymphocytes # (Manual) APTT POC ABG pH ABG pH POC ABG pCO2 POC ABG pO2 ABG pO2 ABG HCO3 ABG Base Excess ABG Hemoglobin VBG pH Oxyhemoglobin Sodium Potassium Chloride Carbon Dioxide BUN Creatinine Glucose POC Glucose 298 H 208 H 245 H Lactic Acid Calcium AST ALT Alkaline Phosphatase CK-MB (CK-2) CK-MB (CK-2) Rel Index Total Protein Albumin TSH Urine WBC (Auto) Salicylates 01/31/17 01/31/17 01/31/17 04:39 04:39 05:57 WBC 11.4 H RBC 3.22 L Hgb 8.2 L Hct 24.9 L MCV 78 L MCH 25 L RDW 17.2 H Plt Count 576 H Lymph % (Auto) [place] % (Auto) Eos % (Auto) [place] # Seg Neutrophils % Seg Neuts % (Manual) Lymphocytes % (Manual) Seg Neutrophils # Seg Neutrophils # Man Lymphocytes # (Manual) APTT POC ABG pH ABG pH POC ABG pCO2 POC ABG pO2 ABG pO2 ABG HCO3 ABG Base Excess ABG Hemoglobin VBG pH Oxyhemoglobin Sodium Potassium Chloride Carbon Dioxide BUN Creatinine 0.7 L Glucose 223 H POC Glucose 264 H Lactic Acid Calcium AST ALT Alkaline Phosphatase CK-MB (CK-2) CK-MB (CK-2) Rel Index Total Protein Albumin TSH Urine WBC (Auto) Salicylates 01/31/17 01/31/17 01/31/17 12:23 17:41 18:55 WBC RBC Hgb Hct MCV MCH RDW Plt Count Lymph % (Auto) [place] % (Auto) Eos % (Auto) [place] # Seg Neutrophils % Seg Neuts % (Manual) Lymphocytes % (Manual) Seg Neutrophils # Seg Neutrophils # Man Lymphocytes # (Manual) APTT POC ABG pH ABG pH POC ABG pCO2 32.8 L POC ABG pO2 ABG pO2 ABG HCO3 ABG Base Excess ABG Hemoglobin VBG pH Oxyhemoglobin Sodium Potassium Chloride Carbon Dioxide BUN Creatinine Glucose POC Glucose 252 H 208 H Lactic Acid Calcium AST ALT Alkaline Phosphatase CK-MB (CK-2) CK-MB (CK-2) Rel Index Total Protein Albumin TSH Urine WBC (Auto) Salicylates 01/31/17 02/01/17 02/01/17 22:59 03:38 03:38 WBC RBC 2.81 L Hgb 7.4 L Hct 22.1 L MCV 79 L MCH 27 L RDW 17.0 H Plt Count 540 H Lymph % (Auto) [place] % (Auto) Eos % (Auto) [place] # Seg Neutrophils % Seg Neuts % (Manual) Lymphocytes % (Manual) Seg Neutrophils # Seg Neutrophils # Man Lymphocytes # (Manual) APTT POC ABG pH ABG pH POC ABG pCO2 POC ABG pO2 ABG pO2 ABG HCO3 ABG Base Excess ABG Hemoglobin VBG pH Oxyhemoglobin Sodium Potassium Chloride Carbon Dioxide 21 L BUN Creatinine 0.7 L Glucose POC Glucose 40 L Lactic Acid Calcium AST ALT Alkaline Phosphatase CK-MB (CK-2) CK-MB (CK-2) Rel Index Total Protein Albumin TSH Urine WBC (Auto) Salicylates 02/01/17 02/01/17 02/01/17 05:17 12:19 16:44 WBC RBC Hgb Hct MCV MCH RDW Plt Count Lymph % (Auto) [place] % (Auto) Eos % (Auto) [place] # Seg Neutrophils % Seg Neuts % (Manual) Lymphocytes % (Manual) Seg Neutrophils # Seg Neutrophils # Man Lymphocytes # (Manual) APTT POC ABG pH ABG pH POC ABG pCO2 POC ABG pO2 ABG pO2 ABG HCO3 ABG Base Excess ABG Hemoglobin VBG pH Oxyhemoglobin Sodium Potassium Chloride Carbon Dioxide BUN Creatinine Glucose POC Glucose 140 H 213 H 172 H Lactic Acid Calcium AST ALT Alkaline Phosphatase CK-MB (CK-2) CK-MB (CK-2) Rel Index Total Protein Albumin TSH Urine WBC (Auto) Salicylates 02/01/17 02/02/17 02/02/17 23:59 05:14 11:24 WBC RBC Hgb Hct MCV MCH RDW Plt Count Lymph % (Auto) [place] % (Auto) Eos % (Auto) [place] # Seg Neutrophils % Seg Neuts % (Manual) Lymphocytes % (Manual) Seg Neutrophils # Seg Neutrophils # Man Lymphocytes # (Manual) APTT POC ABG pH ABG pH POC ABG pCO2 POC ABG pO2 ABG pO2 ABG HCO3 ABG Base Excess ABG Hemoglobin VBG pH Oxyhemoglobin Sodium Potassium Chloride Carbon Dioxide BUN Creatinine Glucose POC Glucose 181 H 194 H 209 H Lactic Acid Calcium AST ALT Alkaline Phosphatase CK-MB (CK-2) CK-MB (CK-2) Rel Index Total Protein Albumin TSH Urine WBC (Auto) Salicylates 02/02/17 02/02/17 02/02/17 11:46 11:46 17:47 WBC RBC 2.94 L Hgb 7.5 L Hct 23.0 L MCV 78 L MCH 25 L RDW 16.9 H Plt Count 520 H Lymph % (Auto) [place] % (Auto) Eos % (Auto) [place] # Seg Neutrophils % Seg Neuts % (Manual) Lymphocytes % (Manual) Seg Neutrophils # Seg Neutrophils # Man Lymphocytes # (Manual) APTT POC ABG pH ABG pH POC ABG pCO2 POC ABG pO2 ABG pO2 ABG HCO3 ABG Base Excess ABG Hemoglobin VBG pH Oxyhemoglobin Sodium Potassium Chloride Carbon Dioxide BUN Creatinine 0.6 L Glucose 189 H POC Glucose 147 H Lactic Acid Calcium 8.1 L AST ALT Alkaline Phosphatase CK-MB (CK-2) CK-MB (CK-2) Rel Index Total Protein Albumin TSH Urine WBC (Auto) Salicylates 02/02/17 02/03/17 02/03/17 23:32 05:53 11:19 WBC RBC Hgb Hct MCV MCH RDW Plt Count Lymph % (Auto) [place] % (Auto) Eos % (Auto) [place] # Seg Neutrophils % Seg Neuts % (Manual) Lymphocytes % (Manual) Seg Neutrophils # Seg Neutrophils # Man Lymphocytes # (Manual) APTT POC ABG pH ABG pH POC ABG pCO2 POC ABG pO2 ABG pO2 ABG HCO3 ABG Base Excess ABG Hemoglobin VBG pH Oxyhemoglobin Sodium Potassium Chloride Carbon Dioxide BUN Creatinine Glucose POC Glucose 176 H 224 H 228 H Lactic Acid Calcium AST ALT Alkaline Phosphatase CK-MB (CK-2) CK-MB (CK-2) Rel Index Total Protein Albumin TSH Urine WBC (Auto) Salicylates 02/03/17 02/03/17 02/04/17 16:59 23:38 05:45 WBC RBC Hgb Hct MCV MCH RDW Plt Count Lymph % (Auto) [place] % (Auto) Eos % (Auto) [place] # Seg Neutrophils % Seg Neuts % (Manual) Lymphocytes % (Manual) Seg Neutrophils # Seg Neutrophils # Man Lymphocytes # (Manual) APTT POC ABG pH ABG pH POC ABG pCO2 POC ABG pO2 ABG pO2 ABG HCO3 ABG Base Excess ABG Hemoglobin VBG pH Oxyhemoglobin Sodium Potassium Chloride Carbon Dioxide BUN Creatinine Glucose POC Glucose 189 H 191 H 251 H Lactic Acid Calcium AST ALT Alkaline Phosphatase CK-MB (CK-2) CK-MB (CK-2) Rel Index Total Protein Albumin TSH Urine WBC (Auto) Salicylates 02/04/17 02/04/17 02/05/17 11:20 17:20 00:17 WBC RBC Hgb Hct MCV MCH RDW Plt Count Lymph % (Auto) [place] % (Auto) Eos % (Auto) [place] # Seg Neutrophils % Seg Neuts % (Manual) Lymphocytes % (Manual) Seg Neutrophils # Seg Neutrophils # Man Lymphocytes # (Manual) APTT POC ABG pH ABG pH POC ABG pCO2 POC ABG pO2 ABG pO2 ABG HCO3 ABG Base Excess ABG Hemoglobin VBG pH Oxyhemoglobin Sodium Potassium Chloride Carbon Dioxide BUN Creatinine Glucose POC Glucose 243 H 163 H 200 H Lactic Acid Calcium AST ALT Alkaline Phosphatase CK-MB (CK-2) CK-MB (CK-2) Rel Index Total Protein Albumin TSH Urine WBC (Auto) Salicylates 02/05/17 02/05/17 02/05/17 05:38 12:38 16:29 WBC RBC Hgb Hct MCV MCH RDW Plt Count Lymph % (Auto) [place] % (Auto) Eos % (Auto) [place] # Seg Neutrophils % Seg Neuts % (Manual) Lymphocytes % (Manual) Seg Neutrophils # Seg Neutrophils # Man Lymphocytes # (Manual) APTT POC ABG pH ABG pH POC ABG pCO2 POC ABG pO2 ABG pO2 ABG HCO3 ABG Base Excess ABG Hemoglobin VBG pH Oxyhemoglobin Sodium Potassium Chloride Carbon Dioxide BUN Creatinine Glucose POC Glucose 248 H 241 H 257 H Lactic Acid Calcium AST ALT Alkaline Phosphatase CK-MB (CK-2) CK-MB (CK-2) Rel Index Total Protein Albumin TSH Urine WBC (Auto) Salicylates 02/05/17 02/06/17 02/06/17 23:56 05:30 11:50 WBC RBC Hgb Hct MCV MCH RDW Plt Count Lymph % (Auto) [place] % (Auto) Eos % (Auto) [place] # Seg Neutrophils % Seg Neuts % (Manual) Lymphocytes % (Manual) Seg Neutrophils # Seg Neutrophils # Man Lymphocytes # (Manual) APTT POC ABG pH ABG pH POC ABG pCO2 POC ABG pO2 ABG pO2 ABG HCO3 ABG Base Excess ABG Hemoglobin VBG pH Oxyhemoglobin Sodium Potassium Chloride Carbon Dioxide BUN Creatinine Glucose POC Glucose 258 H 120 H 254 H Lactic Acid Calcium AST ALT Alkaline Phosphatase CK-MB (CK-2) CK-MB (CK-2) Rel Index Total Protein Albumin TSH Urine WBC (Auto) Salicylates 02/06/17 02/06/17 02/07/17 17:11 23:50 05:22 WBC RBC Hgb Hct MCV MCH RDW Plt Count Lymph % (Auto) [place] % (Auto) Eos % (Auto) [place] # Seg Neutrophils % Seg Neuts % (Manual) Lymphocytes % (Manual) Seg Neutrophils # Seg Neutrophils # Man Lymphocytes # (Manual) APTT POC ABG pH ABG pH POC ABG pCO2 POC ABG pO2 ABG pO2 ABG HCO3 ABG Base Excess ABG Hemoglobin VBG pH Oxyhemoglobin Sodium Potassium Chloride Carbon Dioxide BUN Creatinine Glucose POC Glucose 149 H 240 H 258 H Lactic Acid Calcium AST ALT Alkaline Phosphatase CK-MB (CK-2) CK-MB (CK-2) Rel Index Total Protein Albumin TSH Urine WBC (Auto) Salicylates 02/07/17 02/07/17 02/07/17 11:15 18:33 23:59 WBC RBC Hgb Hct MCV MCH RDW Plt Count Lymph % (Auto) [place] % (Auto) Eos % (Auto) [place] # Seg Neutrophils % Seg Neuts % (Manual) Lymphocytes % (Manual) Seg Neutrophils # Seg Neutrophils # Man Lymphocytes # (Manual) APTT POC ABG pH ABG pH POC ABG pCO2 POC ABG pO2 ABG pO2 ABG HCO3 ABG Base Excess ABG Hemoglobin VBG pH Oxyhemoglobin Sodium Potassium Chloride Carbon Dioxide BUN Creatinine Glucose POC Glucose 239 H 176 H 186 H Lactic Acid Calcium AST ALT Alkaline Phosphatase CK-MB (CK-2) CK-MB (CK-2) Rel Index Total Protein Albumin TSH Urine WBC (Auto) Salicylates 02/08/17 02/08/17 02/08/17 06:15 11:55 16:55 WBC RBC Hgb Hct MCV MCH RDW Plt Count Lymph % (Auto) [place] % (Auto) Eos % (Auto) [place] # Seg Neutrophils % Seg Neuts % (Manual) Lymphocytes % (Manual) Seg Neutrophils # Seg Neutrophils # Man Lymphocytes # (Manual) APTT POC ABG pH ABG pH POC ABG pCO2 POC ABG pO2 ABG pO2 ABG HCO3 ABG Base Excess ABG Hemoglobin VBG pH Oxyhemoglobin Sodium Potassium Chloride Carbon Dioxide BUN Creatinine Glucose POC Glucose 195 H 129 H 246 H Lactic Acid Calcium AST ALT Alkaline Phosphatase CK-MB (CK-2) CK-MB (CK-2) Rel Index Total Protein Albumin TSH Urine WBC (Auto) Salicylates 02/08/17 02/09/17 02/09/17 23:51 05:51 07:24 WBC 14.7 H RBC 3.39 L Hgb 8.9 L Hct 26.4 L MCV 78 L MCH 26 L RDW 18.4 H Plt Count 670 H Lymph % (Auto) 11.8 L [place] % (Auto) Eos % (Auto) [place] # Seg Neutrophils % 81.2 H Seg Neuts % (Manual) Lymphocytes % (Manual) Seg Neutrophils # 11.9 H Seg Neutrophils # Man Lymphocytes # (Manual) APTT POC ABG pH ABG pH POC ABG pCO2 POC ABG pO2 ABG pO2 ABG HCO3 ABG Base Excess ABG Hemoglobin VBG pH Oxyhemoglobin Sodium Potassium Chloride Carbon Dioxide BUN Creatinine Glucose POC Glucose 262 H 295 H Lactic Acid Calcium AST ALT Alkaline Phosphatase CK-MB (CK-2) CK-MB (CK-2) Rel Index Total Protein Albumin TSH Urine WBC (Auto) Salicylates 02/09/17 02/09/17 02/09/17 07:24 12:08 18:39 WBC RBC Hgb Hct MCV MCH RDW Plt Count Lymph % (Auto) [place] % (Auto) Eos % (Auto) [place] # Seg Neutrophils % Seg Neuts % (Manual) Lymphocytes % (Manual) Seg Neutrophils # Seg Neutrophils # Man Lymphocytes # (Manual) APTT POC ABG pH ABG pH POC ABG pCO2 POC ABG pO2 ABG pO2 ABG HCO3 ABG Base Excess ABG Hemoglobin VBG pH Oxyhemoglobin Sodium Potassium Chloride 95.5 L Carbon Dioxide BUN 52 H Creatinine Glucose 277 H POC Glucose 236 H 151 H Lactic Acid Calcium AST ALT Alkaline Phosphatase CK-MB (CK-2) CK-MB (CK-2) Rel Index Total Protein Albumin TSH Urine WBC (Auto) Salicylates 02/10/17 02/10/17 02/10/17 00:01 05:44 11:21 WBC RBC Hgb Hct MCV MCH RDW Plt Count Lymph % (Auto) [place] % (Auto) Eos % (Auto) [place] # Seg Neutrophils % Seg Neuts % (Manual) Lymphocytes % (Manual) Seg Neutrophils # Seg Neutrophils # Man Lymphocytes # (Manual) APTT POC ABG pH ABG pH POC ABG pCO2 POC ABG pO2 ABG pO2 ABG HCO3 ABG Base Excess ABG Hemoglobin VBG pH Oxyhemoglobin Sodium Potassium Chloride Carbon Dioxide BUN Creatinine Glucose POC Glucose 210 H 201 H 233 H Lactic Acid Calcium AST ALT Alkaline Phosphatase CK-MB (CK-2) CK-MB (CK-2) Rel Index Total Protein Albumin TSH Urine WBC (Auto) Salicylates 02/10/17 02/10/17 02/11/17 17:29 23:56 05:24 WBC RBC Hgb Hct MCV MCH RDW Plt Count Lymph % (Auto) [place] % (Auto) Eos % (Auto) [place] # Seg Neutrophils % Seg Neuts % (Manual) Lymphocytes % (Manual) Seg Neutrophils # Seg Neutrophils # Man Lymphocytes # (Manual) APTT POC ABG pH ABG pH POC ABG pCO2 POC ABG pO2 ABG pO2 ABG HCO3 ABG Base Excess ABG Hemoglobin VBG pH Oxyhemoglobin Sodium Potassium Chloride Carbon Dioxide BUN Creatinine Glucose POC Glucose 167 H 191 H 135 H Lactic Acid Calcium AST ALT Alkaline Phosphatase CK-MB (CK-2) CK-MB (CK-2) Rel Index Total Protein Albumin TSH Urine WBC (Auto) Salicylates 02/11/17 02/11/17 02/11/17 12:25 17:03 23:59 WBC RBC Hgb Hct MCV MCH RDW Plt Count Lymph % (Auto) [place] % (Auto) Eos % (Auto) [place] # Seg Neutrophils % Seg Neuts % (Manual) Lymphocytes % (Manual) Seg Neutrophils # Seg Neutrophils # Man Lymphocytes # (Manual) APTT POC ABG pH ABG pH POC ABG pCO2 POC ABG pO2 ABG pO2 ABG HCO3 ABG Base Excess ABG Hemoglobin VBG pH Oxyhemoglobin Sodium Potassium Chloride Carbon Dioxide BUN Creatinine Glucose POC Glucose 275 H 172 H 215 H Lactic Acid Calcium AST ALT Alkaline Phosphatase CK-MB (CK-2) CK-MB (CK-2) Rel Index Total Protein Albumin TSH Urine WBC (Auto) Salicylates 02/12/17 02/12/17 02/12/17 05:39 11:33 17:55 WBC RBC Hgb Hct MCV MCH RDW Plt Count Lymph % (Auto) [place] % (Auto) Eos % (Auto) [place] # Seg Neutrophils % Seg Neuts % (Manual) Lymphocytes % (Manual) Seg Neutrophils # Seg Neutrophils # Man Lymphocytes # (Manual) APTT POC ABG pH ABG pH POC ABG pCO2 POC ABG pO2 ABG pO2 ABG HCO3 ABG Base Excess ABG Hemoglobin VBG pH Oxyhemoglobin Sodium Potassium Chloride Carbon Dioxide BUN Creatinine Glucose POC Glucose 261 H 217 H 172 H Lactic Acid Calcium AST ALT Alkaline Phosphatase CK-MB (CK-2) CK-MB (CK-2) Rel Index Total Protein Albumin TSH Urine WBC (Auto) Salicylates 02/13/17 02/13/17 02/13/17 00:25 06:46 11:26 WBC RBC Hgb Hct MCV MCH RDW Plt Count Lymph % (Auto) [place] % (Auto) Eos % (Auto) [place] # Seg Neutrophils % Seg Neuts % (Manual) Lymphocytes % (Manual) Seg Neutrophils # Seg Neutrophils # Man Lymphocytes # (Manual) APTT POC ABG pH ABG pH POC ABG pCO2 POC ABG pO2 ABG pO2 ABG HCO3 ABG Base Excess ABG Hemoglobin VBG pH Oxyhemoglobin Sodium Potassium Chloride Carbon Dioxide BUN Creatinine Glucose POC Glucose 207 H 219 H 231 H Lactic Acid Calcium AST ALT Alkaline Phosphatase CK-MB (CK-2) CK-MB (CK-2) Rel Index Total Protein Albumin TSH Urine WBC (Auto) Salicylates 02/13/17 02/13/17 02/14/17 17:12 23:44 05:44 WBC RBC Hgb Hct MCV MCH RDW Plt Count Lymph % (Auto) [place] % (Auto) Eos % (Auto) [place] # Seg Neutrophils % Seg Neuts % (Manual) Lymphocytes % (Manual) Seg Neutrophils # Seg Neutrophils # Man Lymphocytes # (Manual) APTT POC ABG pH ABG pH POC ABG pCO2 POC ABG pO2 ABG pO2 ABG HCO3 ABG Base Excess ABG Hemoglobin VBG pH Oxyhemoglobin Sodium Potassium Chloride Carbon Dioxide BUN Creatinine Glucose POC Glucose 190 H 256 H 184 H Lactic Acid Calcium AST ALT Alkaline Phosphatase CK-MB (CK-2) CK-MB (CK-2) Rel Index Total Protein Albumin TSH Urine WBC (Auto) Salicylates 02/14/17 02/14/17 02/14/17 12:21 17:57 23:18 WBC RBC Hgb Hct MCV MCH RDW Plt Count Lymph % (Auto) [place] % (Auto) Eos % (Auto) [place] # Seg Neutrophils % Seg Neuts % (Manual) Lymphocytes % (Manual) Seg Neutrophils # Seg Neutrophils # Man Lymphocytes # (Manual) APTT POC ABG pH ABG pH POC ABG pCO2 POC ABG pO2 ABG pO2 ABG HCO3 ABG Base Excess ABG Hemoglobin VBG pH Oxyhemoglobin Sodium Potassium Chloride Carbon Dioxide BUN Creatinine Glucose POC Glucose 233 H 155 H 165 H Lactic Acid Calcium AST ALT Alkaline Phosphatase CK-MB (CK-2) CK-MB (CK-2) Rel Index Total Protein Albumin TSH Urine WBC (Auto) Salicylates 02/15/17 02/15/17 02/15/17 05:33 11:45 17:20 WBC RBC Hgb Hct MCV MCH RDW Plt Count Lymph % (Auto) [place] % (Auto) Eos % (Auto) [place] # Seg Neutrophils % Seg Neuts % (Manual) Lymphocytes % (Manual) Seg Neutrophils # Seg Neutrophils # Man Lymphocytes # (Manual) APTT POC ABG pH ABG pH POC ABG pCO2 POC ABG pO2 ABG pO2 ABG HCO3 ABG Base Excess ABG Hemoglobin VBG pH Oxyhemoglobin Sodium Potassium Chloride Carbon Dioxide BUN Creatinine Glucose POC Glucose 239 H 130 H 189 H Lactic Acid Calcium AST ALT Alkaline Phosphatase CK-MB (CK-2) CK-MB (CK-2) Rel Index Total Protein Albumin TSH Urine WBC (Auto) Salicylates 02/16/17 02/16/17 02/16/17 00:14 05:09 12:31 WBC RBC Hgb Hct MCV MCH RDW Plt Count Lymph % (Auto) [place] % (Auto) Eos % (Auto) [place] # Seg Neutrophils % Seg Neuts % (Manual) Lymphocytes % (Manual) Seg Neutrophils # Seg Neutrophils # Man Lymphocytes # (Manual) APTT POC ABG pH ABG pH POC ABG pCO2 POC ABG pO2 ABG pO2 ABG HCO3 ABG Base Excess ABG Hemoglobin VBG pH Oxyhemoglobin Sodium Potassium Chloride Carbon Dioxide BUN Creatinine Glucose POC Glucose 197 H 226 H 178 H Lactic Acid Calcium AST ALT Alkaline Phosphatase CK-MB (CK-2) CK-MB (CK-2) Rel Index Total Protein Albumin TSH Urine WBC (Auto) Salicylates 02/16/17 02/16/17 02/17/17 16:35 23:49 05:37 WBC RBC Hgb Hct MCV MCH RDW Plt Count Lymph % (Auto) [place] % (Auto) Eos % (Auto) [place] # Seg Neutrophils % Seg Neuts % (Manual) Lymphocytes % (Manual) Seg Neutrophils # Seg Neutrophils # Man Lymphocytes # (Manual) APTT POC ABG pH ABG pH POC ABG pCO2 POC ABG pO2 ABG pO2 ABG HCO3 ABG Base Excess ABG Hemoglobin VBG pH Oxyhemoglobin Sodium Potassium Chloride Carbon Dioxide BUN Creatinine Glucose POC Glucose 174 H 62 L 153 H Lactic Acid Calcium AST ALT Alkaline Phosphatase CK-MB (CK-2) CK-MB (CK-2) Rel Index Total Protein Albumin TSH Urine WBC (Auto) Salicylates 02/17/17 02/17/17 02/17/17 11:39 17:02 22:24 WBC RBC Hgb Hct MCV MCH RDW Plt Count Lymph % (Auto) [place] % (Auto) Eos % (Auto) [place] # Seg Neutrophils % Seg Neuts % (Manual) Lymphocytes % (Manual) Seg Neutrophils # Seg Neutrophils # Man Lymphocytes # (Manual) APTT POC ABG pH ABG pH POC ABG pCO2 POC ABG pO2 ABG pO2 ABG HCO3 ABG Base Excess ABG Hemoglobin VBG pH Oxyhemoglobin Sodium Potassium Chloride Carbon Dioxide BUN Creatinine Glucose POC Glucose 231 H 112 H 116 H Lactic Acid Calcium AST ALT Alkaline Phosphatase CK-MB (CK-2) CK-MB (CK-2) Rel Index Total Protein Albumin TSH Urine WBC (Auto) Salicylates 02/18/17 02/19/17 02/19/17 15:34 05:09 07:57 WBC RBC Hgb Hct MCV MCH RDW Plt Count Lymph % (Auto) [place] % (Auto) Eos % (Auto) [place] # Seg Neutrophils % Seg Neuts % (Manual) Lymphocytes % (Manual) Seg Neutrophils # Seg Neutrophils # Man Lymphocytes # (Manual) APTT POC ABG pH ABG pH POC ABG pCO2 POC ABG pO2 ABG pO2 ABG HCO3 ABG Base Excess ABG Hemoglobin VBG pH Oxyhemoglobin Sodium Potassium Chloride Carbon Dioxide BUN Creatinine Glucose POC Glucose 215 H 218 H 283 H Lactic Acid Calcium AST ALT Alkaline Phosphatase CK-MB (CK-2) CK-MB (CK-2) Rel Index Total Protein Albumin TSH Urine WBC (Auto) Salicylates 02/19/17 02/19/17 02/20/17 14:49 22:10 05:10 WBC RBC Hgb Hct MCV MCH RDW Plt Count Lymph % (Auto) [place] % (Auto) Eos % (Auto) [place] # Seg Neutrophils % Seg Neuts % (Manual) Lymphocytes % (Manual) Seg Neutrophils # Seg Neutrophils # Man Lymphocytes # (Manual) APTT POC ABG pH ABG pH POC ABG pCO2 POC ABG pO2 ABG pO2 ABG HCO3 ABG Base Excess ABG Hemoglobin VBG pH Oxyhemoglobin Sodium Potassium Chloride Carbon Dioxide BUN Creatinine Glucose POC Glucose 290 H 169 H 209 H Lactic Acid Calcium AST ALT Alkaline Phosphatase CK-MB (CK-2) CK-MB (CK-2) Rel Index Total Protein Albumin TSH Urine WBC (Auto) Salicylates 02/20/17 02/20/17 02/21/17 15:05 21:52 02:00 WBC RBC Hgb Hct MCV MCH RDW Plt Count Lymph % (Auto) [place] % (Auto) Eos % (Auto) [place] # Seg Neutrophils % Seg Neuts % (Manual) Lymphocytes % (Manual) Seg Neutrophils # Seg Neutrophils # Man Lymphocytes # (Manual) APTT POC ABG pH ABG pH POC ABG pCO2 POC ABG pO2 ABG pO2 ABG HCO3 ABG Base Excess ABG Hemoglobin VBG pH Oxyhemoglobin Sodium Potassium Chloride Carbon Dioxide BUN Creatinine Glucose POC Glucose 172 H 209 H 216 H Lactic Acid Calcium AST ALT Alkaline Phosphatase CK-MB (CK-2) CK-MB (CK-2) Rel Index Total Protein Albumin TSH Urine WBC (Auto) Salicylates 02/21/17 02/21/17 02/21/17 04:54 14:43 17:47 WBC RBC Hgb Hct MCV MCH RDW Plt Count Lymph % (Auto) [place] % (Auto) Eos % (Auto) [place] # Seg Neutrophils % Seg Neuts % (Manual) Lymphocytes % (Manual) Seg Neutrophils # Seg Neutrophils # Man Lymphocytes # (Manual) APTT POC ABG pH ABG pH POC ABG pCO2 POC ABG pO2 ABG pO2 ABG HCO3 ABG Base Excess ABG Hemoglobin VBG pH Oxyhemoglobin Sodium Potassium Chloride Carbon Dioxide BUN Creatinine Glucose POC Glucose 227 H 290 H 220 H Lactic Acid Calcium AST ALT Alkaline Phosphatase CK-MB (CK-2) CK-MB (CK-2) Rel Index Total Protein Albumin TSH Urine WBC (Auto) Salicylates 02/21/17 02/22/17 02/22/17 22:02 04:52 15:25 WBC RBC Hgb Hct MCV MCH RDW Plt Count Lymph % (Auto) [place] % (Auto) Eos % (Auto) [place] # Seg Neutrophils % Seg Neuts % (Manual) Lymphocytes % (Manual) Seg Neutrophils # Seg Neutrophils # Man Lymphocytes # (Manual) APTT POC ABG pH ABG pH POC ABG pCO2 POC ABG pO2 ABG pO2 ABG HCO3 ABG Base Excess ABG Hemoglobin VBG pH Oxyhemoglobin Sodium Potassium Chloride Carbon Dioxide BUN Creatinine Glucose POC Glucose 246 H 212 H 236 H Lactic Acid Calcium AST ALT Alkaline Phosphatase CK-MB (CK-2) CK-MB (CK-2) Rel Index Total Protein Albumin TSH Urine WBC (Auto) Salicylates 02/22/17 02/23/17 02/23/17 21:33 06:04 10:00 WBC RBC Hgb Hct MCV MCH RDW Plt Count Lymph % (Auto) [place] % (Auto) Eos % (Auto) [place] # Seg Neutrophils % Seg Neuts % (Manual) Lymphocytes % (Manual) Seg Neutrophils # Seg Neutrophils # Man Lymphocytes # (Manual) APTT POC ABG pH ABG pH POC ABG pCO2 POC ABG pO2 ABG pO2 ABG HCO3 ABG Base Excess ABG Hemoglobin VBG pH Oxyhemoglobin Sodium Potassium Chloride Carbon Dioxide BUN Creatinine Glucose POC Glucose 255 H 208 H 174 H Lactic Acid Calcium AST ALT Alkaline Phosphatase CK-MB (CK-2) CK-MB (CK-2) Rel Index Total Protein Albumin TSH Urine WBC (Auto) Salicylates 02/23/17 02/23/17 02/23/17 12:52 17:15 21:51 WBC RBC Hgb Hct MCV MCH RDW Plt Count Lymph % (Auto) [place] % (Auto) Eos % (Auto) [place] # Seg Neutrophils % Seg Neuts % (Manual) Lymphocytes % (Manual) Seg Neutrophils # Seg Neutrophils # Man Lymphocytes # (Manual) APTT POC ABG pH ABG pH POC ABG pCO2 POC ABG pO2 ABG pO2 ABG HCO3 ABG Base Excess ABG Hemoglobin VBG pH Oxyhemoglobin Sodium Potassium Chloride Carbon Dioxide BUN Creatinine Glucose POC Glucose 203 H 269 H 205 H Lactic Acid Calcium AST ALT Alkaline Phosphatase CK-MB (CK-2) CK-MB (CK-2) Rel Index Total Protein Albumin TSH Urine WBC (Auto) Salicylates 02/24/17 02/24/1702/24/17 10:23 17:45 21:24 WBC RBC Hgb Hct MCV MCH RDW Plt Count Lymph % (Auto) [place] % (Auto) Eos % (Auto) [place] # Seg Neutrophils % Seg Neuts % (Manual) Lymphocytes % (Manual) Seg Neutrophils # Seg Neutrophils # Man Lymphocytes # (Manual) APTT POC ABG pH ABG pH POC ABG pCO2 POC ABG pO2 ABG pO2 ABG HCO3 ABG Base Excess ABG Hemoglobin VBG pH Oxyhemoglobin Sodium Potassium Chloride Carbon Dioxide BUN Creatinine Glucose POC Glucose 280 H 239 H 254 H Lactic Acid Calcium AST ALT Alkaline Phosphatase CK-MB (CK-2) CK-MB (CK-2) Rel Index Total Protein Albumin TSH Urine WBC (Auto) Salicylates 02/25/17 02/25/17 02/25/17 02:12 05:17 14:32 WBC RBC Hgb Hct MCV MCH RDW Plt Count Lymph % (Auto) [place] % (Auto) Eos % (Auto) [place] # Seg Neutrophils % Seg Neuts % (Manual) Lymphocytes % (Manual) Seg Neutrophils # Seg Neutrophils # Man Lymphocytes # (Manual) APTT POC ABG pH ABG pH POC ABG pCO2 POC ABG pO2 ABG pO2 ABG HCO3 ABG Base Excess ABG Hemoglobin VBG pH Oxyhemoglobin Sodium Potassium Chloride Carbon Dioxide BUN Creatinine Glucose POC Glucose 296 H 332 H 353 H Lactic Acid Calcium AST ALT Alkaline Phosphatase CK-MB (CK-2) CK-MB (CK-2) Rel Index Total Protein Albumin TSH Urine WBC (Auto) Salicylates 02/25/17 02/26/17 02/26/17 22:14 00:37 05:52 WBC RBC Hgb Hct MCV MCH RDW Plt Count Lymph % (Auto) [place] % (Auto) Eos % (Auto) [place] # Seg Neutrophils % Seg Neuts % (Manual) Lymphocytes % (Manual) Seg Neutrophils # Seg Neutrophils # Man Lymphocytes # (Manual) APTT POC ABG pH ABG pH POC ABG pCO2 POC ABG pO2 ABG pO2 ABG HCO3 ABG Base Excess ABG Hemoglobin VBG pH Oxyhemoglobin Sodium Potassium Chloride Carbon Dioxide BUN Creatinine Glucose POC Glucose 201 H 233 H 269 H Lactic Acid Calcium AST ALT Alkaline Phosphatase CK-MB (CK-2) CK-MB (CK-2) Rel Index Total Protein Albumin TSH Urine WBC (Auto) Salicylates 02/26/17 02/26/17 02/26/17 11:48 13:49 21:26 WBC RBC Hgb Hct MCV MCH RDW Plt Count Lymph % (Auto) [place] % (Auto) Eos % (Auto) [place] # Seg Neutrophils % Seg Neuts % (Manual) Lymphocytes % (Manual) Seg Neutrophils # Seg Neutrophils # Man Lymphocytes # (Manual) APTT POC ABG pH ABG pH POC ABG pCO2 POC ABG pO2 ABG pO2 ABG HCO3 ABG Base Excess ABG Hemoglobin VBG pH Oxyhemoglobin Sodium Potassium Chloride Carbon Dioxide BUN Creatinine Glucose POC Glucose 333 H 322 H 244 H Lactic Acid Calcium AST ALT Alkaline Phosphatase CK-MB (CK-2) CK-MB (CK-2) Rel Index Total Protein Albumin TSH Urine WBC (Auto) Salicylates 02/27/17 02/27/17 02/27/17 05:27 13:51 21:48 WBC RBC Hgb Hct MCV MCH RDW Plt Count Lymph % (Auto) [place] % (Auto) Eos % (Auto) [place] # Seg Neutrophils % Seg Neuts % (Manual) Lymphocytes % (Manual) Seg Neutrophils # Seg Neutrophils # Man Lymphocytes # (Manual) APTT POC ABG pH ABG pH POC ABG pCO2 POC ABG pO2 ABG pO2 ABG HCO3 ABG Base Excess ABG Hemoglobin VBG pH Oxyhemoglobin Sodium Potassium Chloride Carbon Dioxide BUN Creatinine Glucose POC Glucose 217 H 239 H 254 H Lactic Acid Calcium AST ALT Alkaline Phosphatase CK-MB (CK-2) CK-MB (CK-2) Rel Index Total Protein Albumin TSH Urine WBC (Auto) Salicylates 02/28/17 02/28/17 02/28/17 05:38 11:00 19:44 WBC RBC Hgb Hct MCV MCH RDW Plt Count Lymph % (Auto) [place] % (Auto) Eos % (Auto) [place] # Seg Neutrophils % Seg Neuts % (Manual) Lymphocytes % (Manual) Seg Neutrophils # Seg Neutrophils # Man Lymphocytes # (Manual) APTT POC ABG pH ABG pH POC ABG pCO2 POC ABG pO2 ABG pO2 ABG HCO3 ABG Base Excess ABG Hemoglobin VBG pH Oxyhemoglobin Sodium Potassium Chloride Carbon Dioxide BUN Creatinine Glucose POC Glucose 325 H 203 H 116 H Lactic Acid Calcium AST ALT Alkaline Phosphatase CK-MB (CK-2) CK-MB (CK-2) Rel Index Total Protein Albumin TSH Urine WBC (Auto) Salicylates 03/01/17 03/01/17 03/01/17 00:08 05:31 12:17 WBC RBC Hgb Hct MCV MCH RDW Plt Count Lymph % (Auto) [place] % (Auto) Eos % (Auto) [place] # Seg Neutrophils % Seg Neuts % (Manual) Lymphocytes % (Manual) Seg Neutrophils # Seg Neutrophils # Man Lymphocytes # (Manual) APTT POC ABG pH ABG pH POC ABG pCO2 POC ABG pO2 ABG pO2 ABG HCO3 ABG Base Excess ABG Hemoglobin VBG pH Oxyhemoglobin Sodium Potassium Chloride Carbon Dioxide BUN Creatinine Glucose POC Glucose 202 H 183 H 184 H Lactic Acid Calcium AST ALT Alkaline Phosphatase CK-MB (CK-2) CK-MB (CK-2) Rel Index Total Protein Albumin TSH Urine WBC (Auto) Salicylates 03/02/17 03/02/17 03/02/17 00:12 05:58 18:22 WBC RBC Hgb Hct MCV MCH RDW Plt Count Lymph % (Auto) [place] % (Auto) Eos % (Auto) [place] # Seg Neutrophils % Seg Neuts % (Manual) Lymphocytes % (Manual) Seg Neutrophils # Seg Neutrophils # Man Lymphocytes # (Manual) APTT POC ABG pH ABG pH POC ABG pCO2 POC ABG pO2 ABG pO2 ABG HCO3 ABG Base Excess ABG Hemoglobin VBG pH Oxyhemoglobin Sodium Potassium Chloride Carbon Dioxide BUN Creatinine Glucose POC Glucose 117 H 176 H 156 H Lactic Acid Calcium AST ALT Alkaline Phosphatase CK-MB (CK-2) CK-MB (CK-2) Rel Index Total Protein Albumin TSH Urine WBC (Auto) Salicylates 03/02/17 03/03/17 03/03/17 23:51 05:44 11:32 WBC RBC Hgb Hct MCV MCH RDW Plt Count Lymph % (Auto) [place] % (Auto) Eos % (Auto) [place] # Seg Neutrophils % Seg Neuts % (Manual) Lymphocytes % (Manual) Seg Neutrophils # Seg Neutrophils # Man Lymphocytes # (Manual) APTT POC ABG pH ABG pH POC ABG pCO2 POC ABG pO2 ABG pO2 ABG HCO3 ABG Base Excess ABG Hemoglobin VBG pH Oxyhemoglobin Sodium Potassium Chloride Carbon Dioxide BUN Creatinine Glucose POC Glucose 211 H 117 H 133 H Lactic Acid Calcium AST ALT Alkaline Phosphatase CK-MB (CK-2) CK-MB (CK-2) Rel Index Total Protein Albumin TSH Urine WBC (Auto) Salicylates 03/03/17 03/03/17 03/04/17 17:43 23:17 05:30 WBC RBC Hgb Hct MCV MCH RDW Plt Count Lymph % (Auto) [place] % (Auto) Eos % (Auto) [place] # Seg Neutrophils % Seg Neuts % (Manual) Lymphocytes % (Manual) Seg Neutrophils # Seg Neutrophils # Man Lymphocytes # (Manual) APTT POC ABG pH ABG pH POC ABG pCO2 POC ABG pO2 ABG pO2 ABG HCO3 ABG Base Excess ABG Hemoglobin VBG pH Oxyhemoglobin Sodium Potassium Chloride Carbon Dioxide BUN Creatinine Glucose POC Glucose 206 H 170 H 126 H Lactic Acid Calcium AST ALT Alkaline Phosphatase CK-MB (CK-2) CK-MB (CK-2) Rel Index Total Protein Albumin TSH Urine WBC (Auto) Salicylates 03/04/17 03/04/17 03/05/17 12:17 17:27 05:20 WBC RBC Hgb Hct MCV MCH RDW Plt Count Lymph % (Auto) [place] % (Auto) Eos % (Auto) [place] # Seg Neutrophils % Seg Neuts % (Manual) Lymphocytes % (Manual) Seg Neutrophils # Seg Neutrophils # Man Lymphocytes # (Manual) APTT POC ABG pH ABG pH POC ABG pCO2 POC ABG pO2 ABG pO2 ABG HCO3 ABG Base Excess ABG Hemoglobin VBG pH Oxyhemoglobin Sodium Potassium Chloride Carbon Dioxide BUN Creatinine Glucose POC Glucose 135 H 121 H 185 H Lactic Acid Calcium AST ALT Alkaline Phosphatase CK-MB (CK-2) CK-MB (CK-2) Rel Index Total Protein Albumin TSH Urine WBC (Auto) Salicylates 03/05/17 03/06/17 03/06/17 11:50 11:52 17:34 WBC RBC Hgb Hct MCV MCH RDW Plt Count Lymph % (Auto) [place] % (Auto) Eos % (Auto) [place] # Seg Neutrophils % Seg Neuts % (Manual) Lymphocytes % (Manual) Seg Neutrophils # Seg Neutrophils # Man Lymphocytes # (Manual) APTT POC ABG pH ABG pH POC ABG pCO2 POC ABG pO2 ABG pO2 ABG HCO3 ABG Base Excess ABG Hemoglobin VBG pH Oxyhemoglobin Sodium Potassium Chloride Carbon Dioxide BUN Creatinine Glucose POC Glucose 116 H 133 H 181 H Lactic Acid Calcium AST ALT Alkaline Phosphatase CK-MB (CK-2) CK-MB (CK-2) Rel Index Total Protein Albumin TSH Urine WBC (Auto) Salicylates 03/07/17 03/07/17 03/07/17 05:21 11:36 17:49 WBC RBC Hgb Hct MCV MCH RDW Plt Count Lymph % (Auto) [place] % (Auto) Eos % (Auto) [place] # Seg Neutrophils % Seg Neuts % (Manual) Lymphocytes % (Manual) Seg Neutrophils # Seg Neutrophils # Man Lymphocytes # (Manual) APTT POC ABG pH ABG pH POC ABG pCO2 POC ABG pO2 ABG pO2 ABG HCO3 ABG Base Excess ABG Hemoglobin VBG pH Oxyhemoglobin Sodium Potassium Chloride Carbon Dioxide BUN Creatinine Glucose POC Glucose 159 H 137 H 158 H Lactic Acid Calcium AST ALT Alkaline Phosphatase CK-MB (CK-2) CK-MB (CK-2) Rel Index Total Protein Albumin TSH Urine WBC (Auto) Salicylates 03/08/17 03/08/17 03/08/17 05:51 13:58 23:50 WBC RBC Hgb Hct MCV MCH RDW Plt Count Lymph % (Auto) [place] % (Auto) Eos % (Auto) [place] # Seg Neutrophils % Seg Neuts % (Manual) Lymphocytes % (Manual) Seg Neutrophils # Seg Neutrophils # Man Lymphocytes # (Manual) APTT POC ABG pH ABG pH POC ABG pCO2 POC ABG pO2 ABG pO2 ABG HCO3 ABG Base Excess ABG Hemoglobin VBG pH Oxyhemoglobin Sodium Potassium Chloride Carbon Dioxide BUN Creatinine Glucose POC Glucose 122 H 182 H 114 H Lactic Acid Calcium AST ALT Alkaline Phosphatase CK-MB (CK-2) CK-MB (CK-2) Rel Index Total Protein Albumin TSH Urine WBC (Auto) Salicylates 03/09/17 03/09/17 03/09/17 05:21 05:51 05:51 WBC RBC 3.61 L Hgb 9.5 L Hct 28.3 L MCV 79 L MCH 26 L RDW 17.8 H Plt Count Lymph % (Auto) [place] % (Auto) Eos % (Auto) [place] # Seg Neutrophils % Seg Neuts % (Manual) Lymphocytes % (Manual) Seg Neutrophils # Seg Neutrophils # Man Lymphocytes # (Manual) APTT POC ABG pH ABG pH POC ABG pCO2 POC ABG pO2 ABG pO2 ABG HCO3 ABG Base Excess ABG Hemoglobin VBG pH Oxyhemoglobin Sodium 134 L Potassium Chloride 95.5 L Carbon Dioxide BUN 33 H Creatinine 0.5 L Glucose 143 H POC Glucose 153 H Lactic Acid Calcium AST ALT Alkaline Phosphatase CK-MB (CK-2) CK-MB (CK-2) Rel Index Total Protein Albumin TSH Urine WBC (Auto) Salicylates 03/09/17 03/09/17 03/09/17 12:10 18:13 21:00 WBC RBC Hgb Hct MCV MCH RDW Plt Count Lymph % (Auto) [place] % (Auto) Eos % (Auto) [place] # Seg Neutrophils % Seg Neuts % (Manual) Lymphocytes % (Manual) Seg Neutrophils # Seg Neutrophils # Man Lymphocytes # (Manual) APTT POC ABG pH ABG pH POC ABG pCO2 POC ABG pO2 ABG pO2 ABG HCO3 ABG Base Excess ABG Hemoglobin VBG pH Oxyhemoglobin Sodium Potassium Chloride Carbon Dioxide BUN Creatinine Glucose POC Glucose 203 H 221 H 198 H Lactic Acid Calcium AST ALT Alkaline Phosphatase CK-MB (CK-2) CK-MB (CK-2) Rel Index Total Protein Albumin TSH Urine WBC (Auto) Salicylates 03/09/17 03/10/17 03/10/17 23:58 05:09 05:09 WBC RBC Hgb 10.3 L Hct 30.5 L MCV 78 L MCH 26 L RDW 17.9 H Plt Count Lymph % (Auto) [place] % (Auto) 10.0 H Eos % (Auto) 6.0 H [place] # Seg Neutrophils % Seg Neuts % (Manual) Lymphocytes % (Manual) Seg Neutrophils # Seg Neutrophils # Man Lymphocytes # (Manual) APTT POC ABG pH ABG pH POC ABG pCO2 POC ABG pO2 ABG pO2 ABG HCO3 ABG Base Excess ABG Hemoglobin VBG pH Oxyhemoglobin Sodium 132 L Potassium Chloride 92.2 L Carbon Dioxide BUN 33 H Creatinine 0.5 L Glucose 50 L POC Glucose 167 H Lactic Acid Calcium AST ALT Alkaline Phosphatase CK-MB (CK-2) CK-MB (CK-2) Rel Index Total Protein Albumin TSH Urine WBC (Auto) Salicylates 03/10/17 03/10/17 03/10/17 05:33 05:34 11:48 WBC RBC Hgb Hct MCV MCH RDW Plt Count Lymph % (Auto) [place] % (Auto) Eos % (Auto) [place] # Seg Neutrophils % Seg Neuts % (Manual) Lymphocytes % (Manual) Seg Neutrophils # Seg Neutrophils # Man Lymphocytes # (Manual) APTT POC ABG pH ABG pH POC ABG pCO2 POC ABG pO2 ABG pO2 ABG HCO3 ABG Base Excess ABG Hemoglobin VBG pH Oxyhemoglobin Sodium Potassium Chloride Carbon Dioxide BUN Creatinine Glucose POC Glucose 52 L 53 L 148 H Lactic Acid Calcium AST ALT Alkaline Phosphatase CK-MB (CK-2) CK-MB (CK-2) Rel Index Total Protein Albumin TSH Urine WBC (Auto) Salicylates 03/10/17 03/10/17 03/11/17 17:53 23:47 05:18 WBC RBC Hgb Hct MCV MCH RDW Plt Count Lymph % (Auto) [place] % (Auto) Eos % (Auto) [place] # Seg Neutrophils % Seg Neuts % (Manual) Lymphocytes % (Manual) Seg Neutrophils # Seg Neutrophils # Man Lymphocytes # (Manual) APTT POC ABG pH ABG pH POC ABG pCO2 POC ABG pO2 ABG pO2 ABG HCO3 ABG Base Excess ABG Hemoglobin VBG pH Oxyhemoglobin Sodium Potassium Chloride Carbon Dioxide BUN Creatinine Glucose POC Glucose 189 H 398 H 126 H Lactic Acid Calcium AST ALT Alkaline Phosphatase CK-MB (CK-2) CK-MB (CK-2) Rel Index Total Protein Albumin TSH Urine WBC (Auto) Salicylates 03/11/17 03/11/17 03/11/17 11:53 17:30 23:10 WBC RBC Hgb Hct MCV MCH RDW Plt Count Lymph % (Auto) [place] % (Auto) Eos % (Auto) [place] # Seg Neutrophils % Seg Neuts % (Manual) Lymphocytes % (Manual) Seg Neutrophils # Seg Neutrophils # Man Lymphocytes # (Manual) APTT POC ABG pH ABG pH POC ABG pCO2 POC ABG pO2 ABG pO2 ABG HCO3 ABG Base Excess ABG Hemoglobin VBG pH Oxyhemoglobin Sodium Potassium Chloride Carbon Dioxide BUN Creatinine Glucose POC Glucose 198 H 142 H 244 H Lactic Acid Calcium AST ALT Alkaline Phosphatase CK-MB (CK-2) CK-MB (CK-2) Rel Index Total Protein Albumin TSH Urine WBC (Auto) Salicylates 03/12/17 03/12/17 03/12/17 04:36 11:49 17:23 WBC RBC Hgb Hct MCV MCH RDW Plt Count Lymph % (Auto) [place] % (Auto) Eos % (Auto) [place] # Seg Neutrophils % Seg Neuts % (Manual) Lymphocytes % (Manual) Seg Neutrophils # Seg Neutrophils # Man Lymphocytes # (Manual) APTT POC ABG pH ABG pH POC ABG pCO2 POC ABG pO2 ABG pO2 ABG HCO3 ABG Base Excess ABG Hemoglobin VBG pH Oxyhemoglobin Sodium Potassium Chloride Carbon Dioxide BUN Creatinine Glucose POC Glucose 205 H 197 H 209 H Lactic Acid Calcium AST ALT Alkaline Phosphatase CK-MB (CK-2) CK-MB (CK-2) Rel Index Total Protein Albumin TSH Urine WBC (Auto) Salicylates 03/12/17 03/13/17 03/13/17 23:51 05:32 11:43 WBC RBC Hgb Hct MCV MCH RDW Plt Count Lymph % (Auto) [place] % (Auto) Eos % (Auto) [place] # Seg Neutrophils % Seg Neuts % (Manual) Lymphocytes % (Manual) Seg Neutrophils # Seg Neutrophils # Man Lymphocytes # (Manual) APTT POC ABG pH ABG pH POC ABG pCO2 POC ABG pO2 ABG pO2 ABG HCO3 ABG Base Excess ABG Hemoglobin VBG pH Oxyhemoglobin Sodium Potassium Chloride Carbon Dioxide BUN Creatinine Glucose POC Glucose 210 H 154 H 164 H Lactic Acid Calcium AST ALT Alkaline Phosphatase CK-MB (CK-2) CK-MB (CK-2) Rel Index Total Protein Albumin TSH Urine WBC (Auto) Salicylates 03/13/17 03/13/17 03/14/17 17:11 23:26 05:42 WBC RBC Hgb Hct MCV MCH RDW Plt Count Lymph % (Auto) [place] % (Auto) Eos % (Auto) [place] # Seg Neutrophils % Seg Neuts % (Manual) Lymphocytes % (Manual) Seg Neutrophils # Seg Neutrophils # Man Lymphocytes # (Manual) APTT POC ABG pH ABG pH POC ABG pCO2 POC ABG pO2 ABG pO2 ABG HCO3 ABG Base Excess ABG Hemoglobin VBG pH Oxyhemoglobin Sodium Potassium Chloride Carbon Dioxide BUN Creatinine Glucose POC Glucose 195 H 240 H 230 H Lactic Acid Calcium AST ALT Alkaline Phosphatase CK-MB (CK-2) CK-MB (CK-2) Rel Index Total Protein Albumin TSH Urine WBC (Auto) Salicylates 03/14/17 03/14/17 03/14/17 14:04 17:34 23:42 WBC RBC Hgb Hct MCV MCH RDW Plt Count Lymph % (Auto) [place] % (Auto) Eos % (Auto) [place] # Seg Neutrophils % Seg Neuts % (Manual) Lymphocytes % (Manual) Seg Neutrophils # Seg Neutrophils # Man Lymphocytes # (Manual) APTT POC ABG pH ABG pH POC ABG pCO2 POC ABG pO2 ABG pO2 ABG HCO3 ABG Base Excess ABG Hemoglobin VBG pH Oxyhemoglobin Sodium Potassium Chloride Carbon Dioxide BUN Creatinine Glucose POC Glucose 227 H 186 H 225 H Lactic Acid Calcium AST ALT Alkaline Phosphatase CK-MB (CK-2) CK-MB (CK-2) Rel Index Total Protein Albumin TSH Urine WBC (Auto) Salicylates 03/15/17 03/15/17 03/15/17 05:21 17:13 21:37 WBC RBC Hgb Hct MCV MCH RDW Plt Count Lymph % (Auto) [place] % (Auto) Eos % (Auto) [place] # Seg Neutrophils % Seg Neuts % (Manual) Lymphocytes % (Manual) Seg Neutrophils # Seg Neutrophils # Man Lymphocytes # (Manual) APTT POC ABG pH ABG pH POC ABG pCO2 POC ABG pO2 ABG pO2 ABG HCO3 ABG Base Excess ABG Hemoglobin VBG pH Oxyhemoglobin Sodium Potassium Chloride Carbon Dioxide BUN Creatinine Glucose POC Glucose 244 H 203 H 216 H Lactic Acid Calcium AST ALT Alkaline Phosphatase CK-MB (CK-2) CK-MB (CK-2) Rel Index Total Protein Albumin TSH Urine WBC (Auto) Salicylates 03/16/17 03/16/17 03/16/17 05:52 18:07 21:54 WBC RBC Hgb Hct MCV MCH RDW Plt Count Lymph % (Auto) [place] % (Auto) Eos % (Auto) [place] # Seg Neutrophils % Seg Neuts % (Manual) Lymphocytes % (Manual) Seg Neutrophils # Seg Neutrophils # Man Lymphocytes # (Manual) APTT POC ABG pH ABG pH POC ABG pCO2 POC ABG pO2 ABG pO2 ABG HCO3 ABG Base Excess ABG Hemoglobin VBG pH Oxyhemoglobin Sodium Potassium Chloride Carbon Dioxide BUN Creatinine Glucose POC Glucose 248 H 254 H 244 H Lactic Acid Calcium AST ALT Alkaline Phosphatase CK-MB (CK-2) CK-MB (CK-2) Rel Index Total Protein Albumin TSH Urine WBC (Auto) Salicylates 03/17/17 03/17/17 03/17/17 07:07 07:42 07:43 WBC RBC Hgb 9.7 L Hct 29.1 L MCV 78 L MCH 26 L RDW 17.4 H Plt Count Lymph % (Auto) [place] % (Auto) Eos % (Auto) [place] # Seg Neutrophils % Seg Neuts % (Manual) Lymphocytes % (Manual) Seg Neutrophils # Seg Neutrophils # Man Lymphocytes # (Manual) APTT POC ABG pH ABG pH POC ABG pCO2 POC ABG pO2 ABG pO2 ABG HCO3 ABG Base Excess ABG Hemoglobin VBG pH Oxyhemoglobin Sodium Potassium Chloride 96.6 L Carbon Dioxide BUN 30 H Creatinine 0.5 L Glucose 251 H POC Glucose 222 H Lactic Acid Calcium AST ALT Alkaline Phosphatase CK-MB (CK-2) CK-MB (CK-2) Rel Index Total Protein Albumin TSH Urine WBC (Auto) Salicylates 03/17/17 03/17/17 03/18/17 14:08 21:20 14:24 WBC RBC Hgb Hct MCV MCH RDW Plt Count Lymph % (Auto) [place] % (Auto) Eos % (Auto) [place] # Seg Neutrophils % Seg Neuts % (Manual) Lymphocytes % (Manual) Seg Neutrophils # Seg Neutrophils # Man Lymphocytes # (Manual) APTT POC ABG pH ABG pH POC ABG pCO2 POC ABG pO2 ABG pO2 ABG HCO3 ABG Base Excess ABG Hemoglobin VBG pH Oxyhemoglobin Sodium Potassium Chloride Carbon Dioxide BUN Creatinine Glucose POC Glucose 281 H 239 H 195 H Lactic Acid Calcium AST ALT Alkaline Phosphatase CK-MB (CK-2) CK-MB (CK-2) Rel Index Total Protein Albumin TSH Urine WBC (Auto) Salicylates 03/18/17 03/19/17 03/19/17 21:37 04:57 14:23 WBC RBC Hgb Hct MCV MCH RDW Plt Count Lymph % (Auto) [place] % (Auto) Eos % (Auto) [place] # Seg Neutrophils % Seg Neuts % (Manual) Lymphocytes % (Manual) Seg Neutrophils # Seg Neutrophils # Man Lymphocytes # (Manual) APTT POC ABG pH ABG pH POC ABG pCO2 POC ABG pO2 ABG pO2 ABG HCO3 ABG Base Excess ABG Hemoglobin VBG pH Oxyhemoglobin Sodium Potassium Chloride Carbon Dioxide BUN Creatinine Glucose POC Glucose 227 H 205 H 277 H Lactic Acid Calcium AST ALT Alkaline Phosphatase CK-MB (CK-2) CK-MB (CK-2) Rel Index Total Protein Albumin TSH Urine WBC (Auto) Salicylates 03/19/17 03/19/17 03/20/17 20:31 21:47 04:55 WBC RBC Hgb Hct MCV MCH RDW Plt Count Lymph % (Auto) [place] % (Auto) Eos % (Auto) [place] # Seg Neutrophils % Seg Neuts % (Manual) Lymphocytes % (Manual) Seg Neutrophils # Seg Neutrophils # Man Lymphocytes # (Manual) APTT POC ABG pH ABG pH POC ABG pCO2 POC ABG pO2 ABG pO2 ABG HCO3 ABG Base Excess ABG Hemoglobin VBG pH Oxyhemoglobin Sodium Potassium Chloride Carbon Dioxide BUN Creatinine Glucose POC Glucose 256 H 270 H 202 H Lactic Acid Calcium AST ALT Alkaline Phosphatase CK-MB (CK-2) CK-MB (CK-2) Rel Index Total Protein Albumin TSH Urine WBC (Auto) Salicylates 03/20/17 03/20/17 03/21/17 14:09 21:40 05:09 WBC RBC Hgb Hct MCV MCH RDW Plt Count Lymph % (Auto) [place] % (Auto) Eos % (Auto) [place] # Seg Neutrophils % Seg Neuts % (Manual) Lymphocytes % (Manual) Seg Neutrophils # Seg Neutrophils # Man Lymphocytes # (Manual) APTT POC ABG pH ABG pH POC ABG pCO2 POC ABG pO2 ABG pO2 ABG HCO3 ABG Base Excess ABG Hemoglobin VBG pH Oxyhemoglobin Sodium Potassium Chloride Carbon Dioxide BUN Creatinine Glucose POC Glucose 200 H 214 H 233 H Lactic Acid Calcium AST ALT Alkaline Phosphatase CK-MB (CK-2) CK-MB (CK-2) Rel Index Total Protein Albumin TSH Urine WBC (Auto) Salicylates 03/21/17 03/21/17 03/22/17 14:06 21:26 05:43 WBC RBC Hgb Hct MCV MCH RDW Plt Count Lymph % (Auto) [place] % (Auto) Eos % (Auto) [place] # Seg Neutrophils % Seg Neuts % (Manual) Lymphocytes % (Manual) Seg Neutrophils # Seg Neutrophils # Man Lymphocytes # (Manual) APTT POC ABG pH ABG pH POC ABG pCO2 POC ABG pO2 ABG pO2 ABG HCO3 ABG Base Excess ABG Hemoglobin VBG pH Oxyhemoglobin Sodium Potassium Chloride Carbon Dioxide BUN Creatinine Glucose POC Glucose 250 H 155 H 251 H Lactic Acid Calcium AST ALT Alkaline Phosphatase CK-MB (CK-2) CK-MB (CK-2) Rel Index Total Protein Albumin TSH Urine WBC (Auto) Salicylates 03/22/17 03/22/17 03/23/17 13:46 21:16 00:23 WBC RBC Hgb Hct MCV MCH RDW Plt Count Lymph % (Auto) [place] % (Auto) Eos % (Auto) [place] # Seg Neutrophils % Seg Neuts % (Manual) Lymphocytes % (Manual) Seg Neutrophils # Seg Neutrophils # Man Lymphocytes # (Manual) APTT POC ABG pH ABG pH POC ABG pCO2 POC ABG pO2 ABG pO2 ABG HCO3 ABG Base Excess ABG Hemoglobin VBG pH Oxyhemoglobin Sodium Potassium Chloride Carbon Dioxide BUN Creatinine Glucose POC Glucose 269 H 197 H 126 H Lactic Acid Calcium AST ALT Alkaline Phosphatase CK-MB (CK-2) CK-MB (CK-2) Rel Index Total Protein Albumin TSH Urine WBC (Auto) Salicylates 03/23/17 03/23/17 03/23/17 05:39 14:06 21:39 WBC RBC Hgb Hct MCV MCH RDW Plt Count Lymph % (Auto) [place] % (Auto) Eos % (Auto) [place] # Seg Neutrophils % Seg Neuts % (Manual) Lymphocytes % (Manual) Seg Neutrophils # Seg Neutrophils # Man Lymphocytes # (Manual) APTT POC ABG pH ABG pH POC ABG pCO2 POC ABG pO2 ABG pO2 ABG HCO3 ABG Base Excess ABG Hemoglobin VBG pH Oxyhemoglobin Sodium Potassium Chloride Carbon Dioxide BUN Creatinine Glucose POC Glucose 234 H 241 H 248 H Lactic Acid Calcium AST ALT Alkaline Phosphatase CK-MB (CK-2) CK-MB (CK-2) Rel Index Total Protein Albumin TSH Urine WBC (Auto) Salicylates 03/24/17 03/24/17 03/25/17 05:06 21:46 05:38 WBC RBC Hgb Hct MCV MCH RDW Plt Count Lymph % (Auto) [place] % (Auto) Eos % (Auto) [place] # Seg Neutrophils % Seg Neuts % (Manual) Lymphocytes % (Manual) Seg Neutrophils # Seg Neutrophils # Man Lymphocytes # (Manual) APTT POC ABG pH ABG pH POC ABG pCO2 POC ABG pO2 ABG pO2 ABG HCO3 ABG Base Excess ABG Hemoglobin VBG pH Oxyhemoglobin Sodium Potassium Chloride Carbon Dioxide BUN Creatinine Glucose POC Glucose 232 H 276 H 242 H Lactic Acid Calcium AST ALT Alkaline Phosphatase CK-MB (CK-2) CK-MB (CK-2) Rel Index Total Protein Albumin TSH Urine WBC (Auto) Salicylates 03/25/17 03/25/17 03/26/17 14:30 23:14 13:53 WBC RBC Hgb Hct MCV MCH RDW Plt Count Lymph % (Auto) [place] % (Auto) Eos % (Auto) [place] # Seg Neutrophils % Seg Neuts % (Manual) Lymphocytes % (Manual) Seg Neutrophils # Seg Neutrophils # Man Lymphocytes # (Manual) APTT POC ABG pH ABG pH POC ABG pCO2 POC ABG pO2 ABG pO2 ABG HCO3 ABG Base Excess ABG Hemoglobin VBG pH Oxyhemoglobin Sodium Potassium Chloride Carbon Dioxide BUN Creatinine Glucose POC Glucose 246 H 208 H 195 H Lactic Acid Calcium AST ALT Alkaline Phosphatase CK-MB (CK-2) CK-MB (CK-2) Rel Index Total Protein Albumin TSH Urine WBC (Auto) Salicylates 03/26/17 03/27/17 03/27/17 21:58 05:18 14:57 WBC RBC Hgb Hct MCV MCH RDW Plt Count Lymph % (Auto) [place] % (Auto) Eos % (Auto) [place] # Seg Neutrophils % Seg Neuts % (Manual) Lymphocytes % (Manual) Seg Neutrophils # Seg Neutrophils # Man Lymphocytes # (Manual) APTT POC ABG pH ABG pH POC ABG pCO2 POC ABG pO2 ABG pO2 ABG HCO3 ABG Base Excess ABG Hemoglobin VBG pH Oxyhemoglobin Sodium Potassium Chloride Carbon Dioxide BUN Creatinine Glucose POC Glucose 241 H 199 H 269 H Lactic Acid Calcium AST ALT Alkaline Phosphatase CK-MB (CK-2) CK-MB (CK-2) Rel Index Total Protein Albumin TSH Urine WBC (Auto) Salicylates 03/27/17 03/28/17 03/28/17 21:33 13:52 21:29 WBC RBC Hgb Hct MCV MCH RDW Plt Count Lymph % (Auto) [place] % (Auto) Eos % (Auto) [place] # Seg Neutrophils % Seg Neuts % (Manual) Lymphocytes % (Manual) Seg Neutrophils # Seg Neutrophils # Man Lymphocytes # (Manual) APTT POC ABG pH ABG pH POC ABG pCO2 POC ABG pO2 ABG pO2 ABG HCO3 ABG Base Excess ABG Hemoglobin VBG pH Oxyhemoglobin Sodium Potassium Chloride Carbon Dioxide BUN Creatinine Glucose POC Glucose 214 H 243 H 286 H Lactic Acid Calcium AST ALT Alkaline Phosphatase CK-MB (CK-2) CK-MB (CK-2) Rel Index Total Protein Albumin TSH Urine WBC (Auto) Salicylates 03/29/17 03/29/17 03/29/17 04:32 04:32 13:58 WBC RBC Hgb 10.6 L Hct 32.9 L MCV 78 L MCH 25 L RDW 17.6 H Plt Count Lymph % (Auto) 38.0 H [place] % (Auto) 9.7 H Eos % (Auto) [place] # Seg Neutrophils % Seg Neuts % (Manual) Lymphocytes % (Manual) Seg Neutrophils # Seg Neutrophils # Man Lymphocytes # (Manual) APTT POC ABG pH ABG pH POC ABG pCO2 POC ABG pO2 ABG pO2 ABG HCO3 ABG Base Excess ABG Hemoglobin VBG pH Oxyhemoglobin Sodium 132 L Potassium Chloride 94.0 L Carbon Dioxide BUN 28 H Creatinine 0.5 L Glucose 236 H POC Glucose 171 H Lactic Acid Calcium AST ALT 71 H Alkaline Phosphatase 391 H CK-MB (CK-2) CK-MB (CK-2) Rel Index Total Protein 8.3 H Albumin 2.9 L TSH Urine WBC (Auto) Salicylates 03/29/17 03/30/17 03/30/17 20:59 06:07 11:52 WBC RBC Hgb Hct MCV MCH RDW Plt Count Lymph % (Auto) [place] % (Auto) Eos % (Auto) [place] # Seg Neutrophils % Seg Neuts % (Manual) Lymphocytes % (Manual) Seg Neutrophils # Seg Neutrophils # Man Lymphocytes # (Manual) APTT POC ABG pH ABG pH POC ABG pCO2 POC ABG pO2 ABG pO2 ABG HCO3 ABG Base Excess ABG Hemoglobin VBG pH Oxyhemoglobin Sodium Potassium Chloride Carbon Dioxide BUN Creatinine Glucose POC Glucose 215 H 259 H 197 H Lactic Acid Calcium AST ALT Alkaline Phosphatase CK-MB (CK-2) CK-MB (CK-2) Rel Index Total Protein Albumin TSH Urine WBC (Auto) Salicylates 03/30/17 03/31/17 03/31/17 21:34 05:42 14:34 WBC RBC Hgb Hct MCV MCH RDW Plt Count Lymph % (Auto) [place] % (Auto) Eos % (Auto) [place] # Seg Neutrophils % Seg Neuts % (Manual) Lymphocytes % (Manual) Seg Neutrophils # Seg Neutrophils # Man Lymphocytes # (Manual) APTT POC ABG pH ABG pH POC ABG pCO2 POC ABG pO2 ABG pO2 ABG HCO3 ABG Base Excess ABG Hemoglobin VBG pH Oxyhemoglobin Sodium Potassium Chloride Carbon Dioxide BUN Creatinine Glucose POC Glucose 207 H 184 H 213 H Lactic Acid Calcium AST ALT Alkaline Phosphatase CK-MB (CK-2) CK-MB (CK-2) Rel Index Total Protein Albumin TSH Urine WBC (Auto) Salicylates 03/31/17 04/01/17 04/01/17 21:32 05:53 13:48 WBC RBC Hgb Hct MCV MCH RDW Plt Count Lymph % (Auto) [place] % (Auto) Eos % (Auto) [place] # Seg Neutrophils % Seg Neuts % (Manual) Lymphocytes % (Manual) Seg Neutrophils # Seg Neutrophils # Man Lymphocytes # (Manual) APTT POC ABG pH ABG pH POC ABG pCO2 POC ABG pO2 ABG pO2 ABG HCO3 ABG Base Excess ABG Hemoglobin VBG pH Oxyhemoglobin Sodium Potassium Chloride Carbon Dioxide BUN Creatinine Glucose POC Glucose 249 H 225 H 256 H Lactic Acid Calcium AST ALT Alkaline Phosphatase CK-MB (CK-2) CK-MB (CK-2) Rel Index Total Protein Albumin TSH Urine WBC (Auto) Salicylates 04/01/17 04/02/17 04/02/17 21:34 05:32 14:05 WBC RBC Hgb Hct MCV MCH RDW Plt Count Lymph % (Auto) [place] % (Auto) Eos % (Auto) [place] # Seg Neutrophils % Seg Neuts % (Manual) Lymphocytes % (Manual) Seg Neutrophils # Seg Neutrophils # Man Lymphocytes # (Manual) APTT POC ABG pH ABG pH POC ABG pCO2 POC ABG pO2 ABG pO2 ABG HCO3 ABG Base Excess ABG Hemoglobin VBG pH Oxyhemoglobin Sodium Potassium Chloride Carbon Dioxide BUN Creatinine Glucose POC Glucose 292 H 220 H 187 H Lactic Acid Calcium AST ALT Alkaline Phosphatase CK-MB (CK-2) CK-MB (CK-2) Rel Index Total Protein Albumin TSH Urine WBC (Auto) Salicylates 04/02/17 04/03/17 04/03/17 21:57 04:49 14:12 WBC RBC Hgb Hct MCV MCH RDW Plt Count Lymph % (Auto) [place] % (Auto) Eos % (Auto) [place] # Seg Neutrophils % Seg Neuts % (Manual) Lymphocytes % (Manual) Seg Neutrophils # Seg Neutrophils # Man Lymphocytes # (Manual) APTT POC ABG pH ABG pH POC ABG pCO2 POC ABG pO2 ABG pO2 ABG HCO3 ABG Base Excess ABG Hemoglobin VBG pH Oxyhemoglobin Sodium Potassium Chloride Carbon Dioxide BUN Creatinine Glucose POC Glucose 285 H 256 H 197 H Lactic Acid Calcium AST ALT Alkaline Phosphatase CK-MB (CK-2) CK-MB (CK-2) Rel Index Total Protein Albumin TSH Urine WBC (Auto) Salicylates 04/03/17 04/04/17 04/04/17 21:11 05:20 13:18 WBC RBC Hgb Hct MCV MCH RDW Plt Count Lymph % (Auto) [place] % (Auto) Eos % (Auto) [place] # Seg Neutrophils % Seg Neuts % (Manual) Lymphocytes % (Manual) Seg Neutrophils # Seg Neutrophils # Man Lymphocytes # (Manual) APTT POC ABG pH ABG pH POC ABG pCO2 POC ABG pO2 ABG pO2 ABG HCO3 ABG Base Excess ABG Hemoglobin VBG pH Oxyhemoglobin Sodium Potassium Chloride Carbon Dioxide BUN Creatinine Glucose POC Glucose 166 H 228 H 252 H Lactic Acid Calcium AST ALT Alkaline Phosphatase CK-MB (CK-2) CK-MB (CK-2) Rel Index Total Protein Albumin TSH Urine WBC (Auto) Salicylates 04/04/17 04/05/17 04/05/17 21:51 06:14 09:54 WBC RBC Hgb Hct MCV MCH RDW Plt Count Lymph % (Auto) [place] % (Auto) Eos % (Auto) [place] # Seg Neutrophils % Seg Neuts % (Manual) Lymphocytes % (Manual) Seg Neutrophils # Seg Neutrophils # Man Lymphocytes # (Manual) APTT POC ABG pH ABG pH POC ABG pCO2 POC ABG pO2 ABG pO2 ABG HCO3 ABG Base Excess ABG Hemoglobin VBG pH Oxyhemoglobin Sodium Potassium Chloride Carbon Dioxide BUN Creatinine Glucose POC Glucose 252 H 152 H 181 H Lactic Acid Calcium AST ALT Alkaline Phosphatase CK-MB (CK-2) CK-MB (CK-2) Rel Index Total Protein Albumin TSH Urine WBC (Auto) Salicylates 04/05/17 04/05/17 04/05/17 14:49 17:34 21:38 WBC RBC Hgb Hct MCV MCH RDW Plt Count Lymph % (Auto) [place] % (Auto) Eos % (Auto) [place] # Seg Neutrophils % Seg Neuts % (Manual) Lymphocytes % (Manual) Seg Neutrophils # Seg Neutrophils # Man Lymphocytes # (Manual) APTT POC ABG pH ABG pH POC ABG pCO2 POC ABG pO2 ABG pO2 ABG HCO3 ABG Base Excess ABG Hemoglobin VBG pH Oxyhemoglobin Sodium Potassium Chloride Carbon Dioxide BUN Creatinine Glucose POC Glucose 219 H 268 H 278 H Lactic Acid Calcium AST ALT Alkaline Phosphatase CK-MB (CK-2) CK-MB (CK-2) Rel Index Total Protein Albumin TSH Urine WBC (Auto) Salicylates 04/06/17 04/06/17 04/07/17 15:04 22:14 05:09 WBC RBC Hgb Hct MCV MCH RDW Plt Count Lymph % (Auto) [place] % (Auto) Eos % (Auto) [place] # Seg Neutrophils % Seg Neuts % (Manual) Lymphocytes % (Manual) Seg Neutrophils # Seg Neutrophils # Man Lymphocytes # (Manual) APTT POC ABG pH ABG pH POC ABG pCO2 POC ABG pO2 ABG pO2 ABG HCO3 ABG Base Excess ABG Hemoglobin VBG pH Oxyhemoglobin Sodium Potassium Chloride Carbon Dioxide BUN Creatinine Glucose POC Glucose 285 H 106 H 334 H Lactic Acid Calcium AST ALT Alkaline Phosphatase CK-MB (CK-2) CK-MB (CK-2) Rel Index Total Protein Albumin TSH Urine WBC (Auto) Salicylates 04/07/17 04/07/17 04/08/17 14:45 21:48 05:28 WBC RBC Hgb Hct MCV MCH RDW Plt Count Lymph % (Auto) [place] % (Auto) Eos % (Auto) [place] # Seg Neutrophils % Seg Neuts % (Manual) Lymphocytes % (Manual) Seg Neutrophils # Seg Neutrophils # Man Lymphocytes # (Manual) APTT POC ABG pH ABG pH POC ABG pCO2 POC ABG pO2 ABG pO2 ABG HCO3 ABG Base Excess ABG Hemoglobin VBG pH Oxyhemoglobin Sodium Potassium Chloride Carbon Dioxide BUN Creatinine Glucose POC Glucose 173 H 304 H 314 H Lactic Acid Calcium AST ALT Alkaline Phosphatase CK-MB (CK-2) CK-MB (CK-2) Rel Index Total Protein Albumin TSH Urine WBC (Auto) Salicylates 04/08/17 04/08/17 04/08/17 15:57 16:17 22:21 WBC RBC Hgb Hct MCV MCH RDW Plt Count Lymph % (Auto) [place] % (Auto) Eos % (Auto) [place] # Seg Neutrophils % Seg Neuts % (Manual) Lymphocytes % (Manual) Seg Neutrophils # Seg Neutrophils # Man Lymphocytes # (Manual) APTT POC ABG pH ABG pH POC ABG pCO2 POC ABG pO2 ABG pO2 ABG HCO3 ABG Base Excess ABG Hemoglobin VBG pH Oxyhemoglobin Sodium Potassium Chloride Carbon Dioxide BUN Creatinine Glucose POC Glucose 356 H 337 H 323 H Lactic Acid Calcium AST ALT Alkaline Phosphatase CK-MB (CK-2) CK-MB (CK-2) Rel Index Total Protein Albumin TSH Urine WBC (Auto) Salicylates 04/09/17 04/09/17 04/09/17 06:19 15:30 21:52 WBC RBC Hgb Hct MCV MCH RDW Plt Count Lymph % (Auto) [place] % (Auto) Eos % (Auto) [place] # Seg Neutrophils % Seg Neuts % (Manual) Lymphocytes % (Manual) Seg Neutrophils # Seg Neutrophils # Man Lymphocytes # (Manual) APTT POC ABG pH ABG pH POC ABG pCO2 POC ABG pO2 ABG pO2 ABG HCO3 ABG Base Excess ABG Hemoglobin VBG pH Oxyhemoglobin Sodium Potassium Chloride Carbon Dioxide BUN Creatinine Glucose POC Glucose 340 H 332 H 341 H Lactic Acid Calcium AST ALT Alkaline Phosphatase CK-MB (CK-2) CK-MB (CK-2) Rel Index Total Protein Albumin TSH Urine WBC (Auto) Salicylates 04/10/17 04/10/17 04/10/17 01:53 05:33 17:40 WBC RBC Hgb Hct MCV MCH RDW Plt Count Lymph % (Auto) [place] % (Auto) Eos % (Auto) [place] # Seg Neutrophils % Seg Neuts % (Manual) Lymphocytes % (Manual) Seg Neutrophils # Seg Neutrophils # Man Lymphocytes # (Manual) APTT POC ABG pH ABG pH POC ABG pCO2 POC ABG pO2 ABG pO2 ABG HCO3 ABG Base Excess ABG Hemoglobin VBG pH Oxyhemoglobin Sodium Potassium Chloride Carbon Dioxide BUN Creatinine Glucose POC Glucose 261 H 277 H 304 H Lactic Acid Calcium AST ALT Alkaline Phosphatase CK-MB (CK-2) CK-MB (CK-2) Rel Index Total Protein Albumin TSH Urine WBC (Auto) Salicylates 04/10/17 04/11/17 04/11/17 21:29 05:28 14:02 WBC RBC Hgb Hct MCV MCH RDW Plt Count Lymph % (Auto) [place] % (Auto) Eos % (Auto) [place] # Seg Neutrophils % Seg Neuts % (Manual) Lymphocytes % (Manual) Seg Neutrophils # Seg Neutrophils # Man Lymphocytes # (Manual) APTT POC ABG pH ABG pH POC ABG pCO2 POC ABG pO2 ABG pO2 ABG HCO3 ABG Base Excess ABG Hemoglobin VBG pH Oxyhemoglobin Sodium Potassium Chloride Carbon Dioxide BUN Creatinine Glucose POC Glucose 361 H 204 H 236 H Lactic Acid Calcium AST ALT Alkaline Phosphatase CK-MB (CK-2) CK-MB (CK-2) Rel Index Total Protein Albumin TSH Urine WBC (Auto) Salicylates 04/11/17 04/12/17 04/12/17 21:43 05:00 11:53 WBC RBC Hgb Hct MCV MCH RDW Plt Count Lymph % (Auto) [place] % (Auto) Eos % (Auto) [place] # Seg Neutrophils % Seg Neuts % (Manual) Lymphocytes % (Manual) Seg Neutrophils # Seg Neutrophils # Man Lymphocytes # (Manual) APTT POC ABG pH ABG pH POC ABG pCO2 POC ABG pO2 ABG pO2 ABG HCO3 ABG Base Excess ABG Hemoglobin VBG pH Oxyhemoglobin Sodium Potassium Chloride Carbon Dioxide BUN Creatinine Glucose POC Glucose 287 H 294 H 265 H Lactic Acid Calcium AST ALT Alkaline Phosphatase CK-MB (CK-2) CK-MB (CK-2) Rel Index Total Protein Albumin TSH Urine WBC (Auto) Salicylates 04/12/17 04/12/17 04/13/17 21:21 23:44 06:05 WBC RBC Hgb Hct MCV MCH RDW Plt Count Lymph % (Auto) [place] % (Auto) Eos % (Auto) [place] # Seg Neutrophils % Seg Neuts % (Manual) Lymphocytes % (Manual) Seg Neutrophils # Seg Neutrophils # Man Lymphocytes # (Manual) APTT POC ABG pH ABG pH POC ABG pCO2 POC ABG pO2 ABG pO2 ABG HCO3 ABG Base Excess ABG Hemoglobin VBG pH Oxyhemoglobin Sodium Potassium Chloride Carbon Dioxide BUN Creatinine Glucose POC Glucose 289 H 348 H 326 H Lactic Acid Calcium AST ALT Alkaline Phosphatase CK-MB (CK-2) CK-MB (CK-2) Rel Index Total Protein Albumin TSH Urine WBC (Auto) Salicylates 04/13/17 04/13/17 04/14/17 13:54 21:15 05:49 WBC RBC Hgb Hct MCV MCH RDW Plt Count Lymph % (Auto) [place] % (Auto) Eos % (Auto) [place] # Seg Neutrophils % Seg Neuts % (Manual) Lymphocytes % (Manual) Seg Neutrophils # Seg Neutrophils # Man Lymphocytes # (Manual) APTT POC ABG pH ABG pH POC ABG pCO2 POC ABG pO2 ABG pO2 ABG HCO3 ABG Base Excess ABG Hemoglobin VBG pH Oxyhemoglobin Sodium Potassium Chloride Carbon Dioxide BUN Creatinine Glucose POC Glucose 326 H 263 H 319 H Lactic Acid Calcium AST ALT Alkaline Phosphatase CK-MB (CK-2) CK-MB (CK-2) Rel Index Total Protein Albumin TSH Urine WBC (Auto) Salicylates 04/14/17 04/14/17 04/15/17 13:26 23:13 14:24 WBC RBC Hgb Hct MCV MCH RDW Plt Count Lymph % (Auto) [place] % (Auto) Eos % (Auto) [place] # Seg Neutrophils % Seg Neuts % (Manual) Lymphocytes % (Manual) Seg Neutrophils # Seg Neutrophils # Man Lymphocytes # (Manual) APTT POC ABG pH ABG pH POC ABG pCO2 POC ABG pO2 ABG pO2 ABG HCO3 ABG Base Excess ABG Hemoglobin VBG pH Oxyhemoglobin Sodium Potassium Chloride Carbon Dioxide BUN Creatinine Glucose POC Glucose 207 H 365 H 308 H Lactic Acid Calcium AST ALT Alkaline Phosphatase CK-MB (CK-2) CK-MB (CK-2) Rel Index Total Protein Albumin TSH Urine WBC (Auto) Salicylates 04/15/17 04/15/17 04/15/17 21:00 22:18 23:12 WBC RBC Hgb Hct MCV MCH RDW Plt Count Lymph % (Auto) [place] % (Auto) Eos % (Auto) [place] # Seg Neutrophils % Seg Neuts % (Manual) Lymphocytes % (Manual) Seg Neutrophils # Seg Neutrophils # Man Lymphocytes # (Manual) APTT POC ABG pH ABG pH POC ABG pCO2 POC ABG pO2 ABG pO2 ABG HCO3 ABG Base Excess ABG Hemoglobin VBG pH Oxyhemoglobin Sodium Potassium Chloride Carbon Dioxide BUN Creatinine Glucose POC Glucose 407 H 287 H 325 H Lactic Acid Calcium AST ALT Alkaline Phosphatase CK-MB (CK-2) CK-MB (CK-2) Rel Index Total Protein Albumin TSH Urine WBC (Auto) Salicylates 04/16/17 04/16/17 04/16/17 05:30 10:07 14:26 WBC RBC Hgb Hct MCV MCH RDW Plt Count Lymph % (Auto) [place] % (Auto) Eos % (Auto) [place] # Seg Neutrophils % Seg Neuts % (Manual) Lymphocytes % (Manual) Seg Neutrophils # Seg Neutrophils # Man Lymphocytes # (Manual) APTT POC ABG pH ABG pH POC ABG pCO2 POC ABG pO2 ABG pO2 ABG HCO3 ABG Base Excess ABG Hemoglobin VBG pH Oxyhemoglobin Sodium Potassium Chloride Carbon Dioxide BUN Creatinine Glucose POC Glucose 304 H 217 H 344 H Lactic Acid Calcium AST ALT Alkaline Phosphatase CK-MB (CK-2) CK-MB (CK-2) Rel Index Total Protein Albumin TSH Urine WBC (Auto) Salicylates 04/16/17 04/17/17 04/17/17 21:25 05:12 14:19 WBC RBC Hgb Hct MCV MCH RDW Plt Count Lymph % (Auto) [place] % (Auto) Eos % (Auto) [place] # Seg Neutrophils % Seg Neuts % (Manual) Lymphocytes % (Manual) Seg Neutrophils # Seg Neutrophils # Man Lymphocytes # (Manual) APTT POC ABG pH ABG pH POC ABG pCO2 POC ABG pO2 ABG pO2 ABG HCO3 ABG Base Excess ABG Hemoglobin VBG pH Oxyhemoglobin Sodium Potassium Chloride Carbon Dioxide BUN Creatinine Glucose POC Glucose 305 H 233 H 324 H Lactic Acid Calcium AST ALT Alkaline Phosphatase CK-MB (CK-2) CK-MB (CK-2) Rel Index Total Protein Albumin TSH Urine WBC (Auto) Salicylates 04/17/17 04/18/17 04/18/17 21:42 06:21 14:08 WBC RBC Hgb Hct MCV MCH RDW Plt Count Lymph % (Auto) [place] % (Auto) Eos % (Auto) [place] # Seg Neutrophils % Seg Neuts % (Manual) Lymphocytes % (Manual) Seg Neutrophils # Seg Neutrophils # Man Lymphocytes # (Manual) APTT POC ABG pH ABG pH POC ABG pCO2 POC ABG pO2 ABG pO2 ABG HCO3 ABG Base Excess ABG Hemoglobin VBG pH Oxyhemoglobin Sodium Potassium Chloride Carbon Dioxide BUN Creatinine Glucose POC Glucose 270 H 308 H 290 H Lactic Acid Calcium AST ALT Alkaline Phosphatase CK-MB (CK-2) CK-MB (CK-2) Rel Index Total Protein Albumin TSH Urine WBC (Auto) Salicylates 04/18/17 04/19/17 04/19/17 21:50 05:20 13:59 WBC RBC Hgb Hct MCV MCH RDW Plt Count Lymph % (Auto) [place] % (Auto) Eos % (Auto) [place] # Seg Neutrophils % Seg Neuts % (Manual) Lymphocytes % (Manual) Seg Neutrophils # Seg Neutrophils # Man Lymphocytes # (Manual) APTT POC ABG pH ABG pH POC ABG pCO2 POC ABG pO2 ABG pO2 ABG HCO3 ABG Base Excess ABG Hemoglobin VBG pH Oxyhemoglobin Sodium Potassium Chloride Carbon Dioxide BUN Creatinine Glucose POC Glucose 167 H 372 H 321 H Lactic Acid Calcium AST ALT Alkaline Phosphatase CK-MB (CK-2) CK-MB (CK-2) Rel Index Total Protein Albumin TSH Urine WBC (Auto) Salicylates 04/19/17 04/20/17 04/20/17 21:16 14:18 21:34 WBC RBC Hgb Hct MCV MCH RDW Plt Count Lymph % (Auto) [place] % (Auto) Eos % (Auto) [place] # Seg Neutrophils % Seg Neuts % (Manual) Lymphocytes % (Manual) Seg Neutrophils # Seg Neutrophils # Man Lymphocytes # (Manual) APTT POC ABG pH ABG pH POC ABG pCO2 POC ABG pO2 ABG pO2 ABG HCO3 ABG Base Excess ABG Hemoglobin VBG pH Oxyhemoglobin Sodium Potassium Chloride Carbon Dioxide BUN Creatinine Glucose POC Glucose 182 H 218 H 121 H Lactic Acid Calcium AST ALT Alkaline Phosphatase CK-MB (CK-2) CK-MB (CK-2) Rel Index Total Protein Albumin TSH Urine WBC (Auto) Salicylates 04/21/17 04/21/17 04/21/17 00:08 05:16 12:41 WBC RBC Hgb Hct MCV MCH RDW Plt Count Lymph % (Auto) [place] % (Auto) Eos % (Auto) [place] # Seg Neutrophils % Seg Neuts % (Manual) Lymphocytes % (Manual) Seg Neutrophils # Seg Neutrophils # Man Lymphocytes # (Manual) APTT POC ABG pH ABG pH POC ABG pCO2 POC ABG pO2 ABG pO2 ABG HCO3 ABG Base Excess ABG Hemoglobin VBG pH Oxyhemoglobin Sodium Potassium Chloride Carbon Dioxide BUN Creatinine Glucose POC Glucose 128 H 120 H 216 H Lactic Acid Calcium AST ALT Alkaline Phosphatase CK-MB (CK-2) CK-MB (CK-2) Rel Index Total Protein Albumin TSH Urine WBC (Auto) Salicylates 04/21/17 04/22/17 04/22/17 23:40 14:12 23:38 WBC RBC Hgb Hct MCV MCH RDW Plt Count Lymph % (Auto) [place] % (Auto) Eos % (Auto) [place] # Seg Neutrophils % Seg Neuts % (Manual) Lymphocytes % (Manual) Seg Neutrophils # Seg Neutrophils # Man Lymphocytes # (Manual) APTT POC ABG pH ABG pH POC ABG pCO2 POC ABG pO2 ABG pO2 ABG HCO3 ABG Base Excess ABG Hemoglobin VBG pH Oxyhemoglobin Sodium Potassium Chloride Carbon Dioxide BUN Creatinine Glucose POC Glucose 157 H 242 H 117 H Lactic Acid Calcium AST ALT Alkaline Phosphatase CK-MB (CK-2) CK-MB (CK-2) Rel Index Total Protein Albumin TSH Urine WBC (Auto) Salicylates 04/23/17 04/23/17 04/24/17 05:18 14:01 03:24 WBC RBC Hgb Hct MCV MCH RDW Plt Count Lymph % (Auto) [place] % (Auto) Eos % (Auto) [place] # Seg Neutrophils % Seg Neuts % (Manual) Lymphocytes % (Manual) Seg Neutrophils # Seg Neutrophils # Man Lymphocytes # (Manual) APTT POC ABG pH ABG pH POC ABG pCO2 POC ABG pO2 ABG pO2 ABG HCO3 ABG Base Excess ABG Hemoglobin VBG pH Oxyhemoglobin Sodium Potassium Chloride Carbon Dioxide BUN Creatinine Glucose POC Glucose 163 H 57 L 177 H Lactic Acid Calcium AST ALT Alkaline Phosphatase CK-MB (CK-2) CK-MB (CK-2) Rel Index Total Protein Albumin TSH Urine WBC (Auto) Salicylates 04/24/17 04/24/17 04/24/17 04:00 04:00 06:33 WBC RBC Hgb 9.9 L Hct 30.0 L MCV 79 L MCH 26 L RDW 17.1 H Plt Count 625 H Lymph % (Auto) [place] % (Auto) 8.4 H Eos % (Auto) [place] # Seg Neutrophils % Seg Neuts % (Manual) Lymphocytes % (Manual) Seg Neutrophils # Seg Neutrophils # Man Lymphocytes # (Manual) APTT POC ABG pH ABG pH POC ABG pCO2 POC ABG pO2 ABG pO2 ABG HCO3 ABG Base Excess ABG Hemoglobin VBG pH Oxyhemoglobin Sodium 136 L Potassium Chloride 94.9 L Carbon Dioxide BUN 40 H Creatinine 0.6 L Glucose 176 H POC Glucose 230 H Lactic Acid Calcium AST 67 H ALT Alkaline Phosphatase 294 H CK-MB (CK-2) CK-MB (CK-2) Rel Index Total Protein 9.0 H Albumin 2.5 L TSH Urine WBC (Auto) Salicylates 04/24/17 04/25/17 04/25/17 13:50 00:22 02:55 WBC RBC 3.54 L Hgb 9.0 L Hct 27.9 L MCV 79 L MCH 26 L RDW 17.5 H Plt Count 574 H Lymph % (Auto) [place] % (Auto) 10.4 H Eos % (Auto) [place] # 1.0 H Seg Neutrophils % Seg Neuts % (Manual) Lymphocytes % (Manual) Seg Neutrophils # Seg Neutrophils # Man Lymphocytes # (Manual) APTT POC ABG pH ABG pH POC ABG pCO2 POC ABG pO2 ABG pO2 ABG HCO3 ABG Base Excess ABG Hemoglobin VBG pH Oxyhemoglobin Sodium Potassium Chloride Carbon Dioxide BUN Creatinine Glucose POC Glucose 116 H < 40 L Lactic Acid Calcium AST ALT Alkaline Phosphatase CK-MB (CK-2) CK-MB (CK-2) Rel Index Total Protein Albumin TSH Urine WBC (Auto) Salicylates 04/25/17 04/25/17 04/25/17 02:55 11:15 18:36 WBC RBC Hgb Hct MCV MCH RDW Plt Count Lymph % (Auto) [place] % (Auto) Eos % (Auto) [place] # Seg Neutrophils % Seg Neuts % (Manual) Lymphocytes % (Manual) Seg Neutrophils # Seg Neutrophils # Man Lymphocytes # (Manual) APTT POC ABG pH ABG pH POC ABG pCO2 POC ABG pO2 ABG pO2 ABG HCO3 ABG Base Excess ABG Hemoglobin VBG pH Oxyhemoglobin Sodium Potassium Chloride 96.2 L Carbon Dioxide BUN 39 H Creatinine 0.7 L Glucose 125 H POC Glucose 227 H 280 H Lactic Acid Calcium AST ALT Alkaline Phosphatase 247 H CK-MB (CK-2) CK-MB (CK-2) Rel Index Total Protein Albumin 2.7 L TSH Urine WBC (Auto) Salicylates 04/25/17 04/26/17 04/26/17 21:49 06:53 07:27 WBC RBC 3.61 L Hgb 9.1 L Hct 28.1 L MCV 78 L MCH 25 L RDW 17.4 H Plt Count 594 H Lymph % (Auto) [place] % (Auto) 9.2 H Eos % (Auto) [place] # 1.0 H Seg Neutrophils % 70.6 H Seg Neuts % (Manual) Lymphocytes % (Manual) Seg Neutrophils # Seg Neutrophils # Man Lymphocytes # (Manual) APTT POC ABG pH ABG pH POC ABG pCO2 POC ABG pO2 ABG pO2 ABG HCO3 ABG Base Excess ABG Hemoglobin VBG pH Oxyhemoglobin Sodium Potassium Chloride Carbon Dioxide BUN Creatinine Glucose POC Glucose 192 H 60 L Lactic Acid Calcium AST ALT Alkaline Phosphatase CK-MB (CK-2) CK-MB (CK-2) Rel Index Total Protein Albumin TSH Urine WBC (Auto) Salicylates 04/26/17 04/26/17 04/26/17 07:27 07:28 13:32 WBC RBC Hgb Hct MCV MCH RDW Plt Count Lymph % (Auto) [place] % (Auto) Eos % (Auto) [place] # Seg Neutrophils % Seg Neuts % (Manual) Lymphocytes % (Manual) Seg Neutrophils # Seg Neutrophils # Man Lymphocytes # (Manual) APTT POC ABG pH ABG pH POC ABG pCO2 POC ABG pO2 ABG pO2 ABG HCO3 ABG Base Excess ABG Hemoglobin VBG pH Oxyhemoglobin Sodium Potassium Chloride 95.0 L Carbon Dioxide BUN 42 H Creatinine 0.7 L Glucose 172 H POC Glucose 190 H 168 H Lactic Acid Calcium AST 56 H ALT Alkaline Phosphatase 274 H CK-MB (CK-2) CK-MB (CK-2) Rel Index Total Protein 8.9 H Albumin 2.7 L TSH Urine WBC (Auto) Salicylates 04/26/17 04/27/17 04/27/17 23:36 05:10 05:10 WBC RBC 3.49 L Hgb 8.7 L Hct 27.0 L MCV 77 L MCH 25 L RDW 17.4 H Plt Count 558 H Lymph % (Auto) [place] % (Auto) 9.6 H Eos % (Auto) [place] # Seg Neutrophils % Seg Neuts % (Manual) Lymphocytes % (Manual) Seg Neutrophils # Seg Neutrophils # Man Lymphocytes # (Manual) APTT POC ABG pH ABG pH POC ABG pCO2 POC ABG pO2 ABG pO2 ABG HCO3 ABG Base Excess ABG Hemoglobin VBG pH Oxyhemoglobin Sodium 133 L Potassium Chloride 93.5 L Carbon Dioxide BUN 40 H Creatinine 0.7 L Glucose 179 H POC Glucose 204 H Lactic Acid Calcium AST 73 H ALT 58 H Alkaline Phosphatase 294 H CK-MB (CK-2) CK-MB (CK-2) Rel Index Total Protein 8.7 H Albumin 2.4 L TSH Urine WBC (Auto) Salicylates 04/27/17 04/27/17 04/27/17 05:45 14:08 23:46 WBC RBC Hgb Hct MCV MCH RDW Plt Count Lymph % (Auto) [place] % (Auto) Eos % (Auto) [place] # Seg Neutrophils % Seg Neuts % (Manual) Lymphocytes % (Manual) Seg Neutrophils # Seg Neutrophils # Man Lymphocytes # (Manual) APTT POC ABG pH ABG pH POC ABG pCO2 POC ABG pO2 ABG pO2 ABG HCO3 ABG Base Excess ABG Hemoglobin VBG pH Oxyhemoglobin Sodium Potassium Chloride Carbon Dioxide BUN Creatinine Glucose POC Glucose 200 H 206 H 207 H Lactic Acid Calcium AST ALT Alkaline Phosphatase CK-MB (CK-2) CK-MB (CK-2) Rel Index Total Protein Albumin TSH Urine WBC (Auto) Salicylates 04/28/17 04/28/17 04/28/17 04:48 04:53 05:10 WBC RBC 3.48 L Hgb 8.8 L Hct 26.7 L MCV 77 L MCH 25 L RDW 17.0 H Plt Count 515 H Lymph % (Auto) [place] % (Auto) 8.4 H Eos % (Auto) [place] # Seg Neutrophils % 70.6 H Seg Neuts % (Manual) Lymphocytes % (Manual) Seg Neutrophils # Seg Neutrophils # Man Lymphocytes # (Manual) APTT POC ABG pH ABG pH POC ABG pCO2 POC ABG pO2 ABG pO2 ABG HCO3 ABG Base Excess ABG Hemoglobin VBG pH Oxyhemoglobin Sodium Potassium Chloride Carbon Dioxide BUN Creatinine Glucose POC Glucose 43 L 41 L Lactic Acid Calcium AST ALT Alkaline Phosphatase CK-MB (CK-2) CK-MB (CK-2) Rel Index Total Protein Albumin TSH Urine WBC (Auto) Salicylates 04/28/17 04/28/17 04/28/17 05:10 14:06 22:07 WBC RBC Hgb Hct MCV MCH RDW Plt Count Lymph % (Auto) [place] % (Auto) Eos % (Auto) [place] # Seg Neutrophils % Seg Neuts % (Manual) Lymphocytes % (Manual) Seg Neutrophils # Seg Neutrophils # Man Lymphocytes # (Manual) APTT POC ABG pH ABG pH POC ABG pCO2 POC ABG pO2 ABG pO2 ABG HCO3 ABG Base Excess ABG Hemoglobin VBG pH Oxyhemoglobin Sodium 136 L Potassium Chloride 95.2 L Carbon Dioxide BUN 42 H Creatinine Glucose 63 L POC Glucose 303 H 227 H Lactic Acid Calcium AST 45 H ALT Alkaline Phosphatase 271 H CK-MB (CK-2) CK-MB (CK-2) Rel Index Total Protein 8.9 H Albumin 2.5 L TSH Urine WBC (Auto) Salicylates 04/29/17 04/29/17 04/29/17 06:40 14:11 21:35 WBC RBC Hgb Hct MCV MCH RDW Plt Count Lymph % (Auto) [place] % (Auto) Eos % (Auto) [place] # Seg Neutrophils % Seg Neuts % (Manual) Lymphocytes % (Manual) Seg Neutrophils # Seg Neutrophils # Man Lymphocytes # (Manual) APTT POC ABG pH ABG pH POC ABG pCO2 POC ABG pO2 ABG pO2 ABG HCO3 ABG Base Excess ABG Hemoglobin VBG pH Oxyhemoglobin Sodium Potassium Chloride Carbon Dioxide BUN Creatinine Glucose POC Glucose 254 H 244 H 184 H Lactic Acid Calcium AST ALT Alkaline Phosphatase CK-MB (CK-2) CK-MB (CK-2) Rel Index Total Protein Albumin TSH Urine WBC (Auto) Salicylates 04/30/17 04/30/17 04/30/17 05:17 14:03 22:08 WBC RBC Hgb Hct MCV MCH RDW Plt Count Lymph % (Auto) [place] % (Auto) Eos % (Auto) [place] # Seg Neutrophils % Seg Neuts % (Manual) Lymphocytes % (Manual) Seg Neutrophils # Seg Neutrophils # Man Lymphocytes # (Manual) APTT POC ABG pH ABG pH POC ABG pCO2 POC ABG pO2 ABG pO2 ABG HCO3 ABG Base Excess ABG Hemoglobin VBG pH Oxyhemoglobin Sodium Potassium Chloride Carbon Dioxide BUN Creatinine Glucose POC Glucose 173 H 182 H 247 H Lactic Acid Calcium AST ALT Alkaline Phosphatase CK-MB (CK-2) CK-MB (CK-2) Rel Index Total Protein Albumin TSH Urine WBC (Auto) Salicylates 05/01/17 05/01/17 05/01/17 05:04 15:37 18:50 WBC RBC Hgb Hct MCV MCH RDW Plt Count Lymph % (Auto) [place] % (Auto) Eos % (Auto) [place] # Seg Neutrophils % Seg Neuts % (Manual) Lymphocytes % (Manual) Seg Neutrophils # Seg Neutrophils # Man Lymphocytes # (Manual) APTT POC ABG pH ABG pH POC ABG pCO2 POC ABG pO2 ABG pO2 ABG HCO3 ABG Base Excess ABG Hemoglobin VBG pH Oxyhemoglobin Sodium Potassium Chloride Carbon Dioxide BUN Creatinine Glucose POC Glucose 335 H 68 L 144 H Lactic Acid Calcium AST ALT Alkaline Phosphatase CK-MB (CK-2) CK-MB (CK-2) Rel Index Total Protein Albumin TSH Urine WBC (Auto) Salicylates 05/01/17 05/02/17 05/02/17 22:13 04:59 14:06 WBC RBC Hgb Hct MCV MCH RDW Plt Count Lymph % (Auto) [place] % (Auto) Eos % (Auto) [place] # Seg Neutrophils % Seg Neuts % (Manual) Lymphocytes % (Manual) Seg Neutrophils # Seg Neutrophils # Man Lymphocytes # (Manual) APTT POC ABG pH ABG pH POC ABG pCO2 POC ABG pO2 ABG pO2 ABG HCO3 ABG Base Excess ABG Hemoglobin VBG pH Oxyhemoglobin Sodium Potassium Chloride Carbon Dioxide BUN Creatinine Glucose POC Glucose 192 H 225 H 165 H Lactic Acid Calcium AST ALT Alkaline Phosphatase CK-MB (CK-2) CK-MB (CK-2) Rel Index Total Protein Albumin TSH Urine WBC (Auto) Salicylates 05/02/17 05/03/17 05/03/17 21:20 05:16 16:56 WBC RBC Hgb Hct MCV MCH RDW Plt Count Lymph % (Auto) [place] % (Auto) Eos % (Auto) [place] # Seg Neutrophils % Seg Neuts % (Manual) Lymphocytes % (Manual) Seg Neutrophils # Seg Neutrophils # Man Lymphocytes # (Manual) APTT POC ABG pH ABG pH POC ABG pCO2 POC ABG pO2 ABG pO2 ABG HCO3 ABG Base Excess ABG Hemoglobin VBG pH Oxyhemoglobin Sodium Potassium Chloride Carbon Dioxide BUN Creatinine Glucose POC Glucose 181 H 323 H 125 H Lactic Acid Calcium AST ALT Alkaline Phosphatase CK-MB (CK-2) CK-MB (CK-2) Rel Index Total Protein Albumin TSH Urine WBC (Auto) Salicylates 05/03/17 05/04/17 05/04/17 21:46 05:01 14:24 WBC RBC Hgb Hct MCV MCH RDW Plt Count Lymph % (Auto) [place] % (Auto) Eos % (Auto) [place] # Seg Neutrophils % Seg Neuts % (Manual) Lymphocytes % (Manual) Seg Neutrophils # Seg Neutrophils # Man Lymphocytes # (Manual) APTT POC ABG pH ABG pH POC ABG pCO2 POC ABG pO2 ABG pO2 ABG HCO3 ABG Base Excess ABG Hemoglobin VBG pH Oxyhemoglobin Sodium Potassium Chloride Carbon Dioxide BUN Creatinine Glucose POC Glucose 210 H 360 H 219 H Lactic Acid Calcium AST ALT Alkaline Phosphatase CK-MB (CK-2) CK-MB (CK-2) Rel Index Total Protein Albumin TSH Urine WBC (Auto) Salicylates 05/04/17 05/05/17 05/05/17 21:39 01:58 05:13 WBC RBC Hgb Hct MCV MCH RDW Plt Count Lymph % (Auto) [place] % (Auto) Eos % (Auto) [place] # Seg Neutrophils % Seg Neuts % (Manual) Lymphocytes % (Manual) Seg Neutrophils # Seg Neutrophils # Man Lymphocytes # (Manual) APTT POC ABG pH ABG pH POC ABG pCO2 POC ABG pO2 ABG pO2 ABG HCO3 ABG Base Excess ABG Hemoglobin VBG pH Oxyhemoglobin Sodium Potassium Chloride Carbon Dioxide BUN Creatinine Glucose POC Glucose 126 H 175 H 267 H Lactic Acid Calcium AST ALT Alkaline Phosphatase CK-MB (CK-2) CK-MB (CK-2) Rel Index Total Protein Albumin TSH Urine WBC (Auto) Salicylates 05/05/17 05/05/17 05/05/17 12:19 14:11 21:18 WBC RBC Hgb Hct MCV MCH RDW Plt Count Lymph % (Auto) [place] % (Auto) Eos % (Auto) [place] # Seg Neutrophils % Seg Neuts % (Manual) Lymphocytes % (Manual) Seg Neutrophils # Seg Neutrophils # Man Lymphocytes # (Manual) APTT POC ABG pH ABG pH POC ABG pCO2 POC ABG pO2 ABG pO2 ABG HCO3 ABG Base Excess ABG Hemoglobin VBG pH Oxyhemoglobin Sodium Potassium Chloride Carbon Dioxide BUN Creatinine Glucose POC Glucose 221 H 205 H 156 H Lactic Acid Calcium AST ALT Alkaline Phosphatase CK-MB (CK-2) CK-MB (CK-2) Rel Index Total Protein Albumin TSH Urine WBC (Auto) Salicylates 05/06/17 05/06/17 05/06/17 06:02 15:26 21:43 WBC RBC Hgb Hct MCV MCH RDW Plt Count Lymph % (Auto) [place] % (Auto) Eos % (Auto) [place] # Seg Neutrophils % Seg Neuts % (Manual) Lymphocytes % (Manual) Seg Neutrophils # Seg Neutrophils # Man Lymphocytes # (Manual) APTT POC ABG pH ABG pH POC ABG pCO2 POC ABG pO2 ABG pO2 ABG HCO3 ABG Base Excess ABG Hemoglobin VBG pH Oxyhemoglobin Sodium Potassium Chloride Carbon Dioxide BUN Creatinine Glucose POC Glucose 263 H 143 H 145 H Lactic Acid Calcium AST ALT Alkaline Phosphatase CK-MB (CK-2) CK-MB (CK-2) Rel Index Total Protein Albumin TSH Urine WBC (Auto) Salicylates 01/27/18 01/27/18 01/27/18 05:52 21:46 21:49 WBC RBC Hgb Hct MCV MCH RDW Plt Count Lymph % (Auto) [place] % (Auto) Eos % (Auto) [place] # Seg Neutrophils % Seg Neuts % (Manual) Lymphocytes % (Manual) Seg Neutrophils # Seg Neutrophils # Man Lymphocytes # (Manual) APTT POC ABG pH ABG pH POC ABG pCO2 POC ABG pO2 ABG pO2 ABG HCO3 ABG Base Excess ABG Hemoglobin VBG pH Oxyhemoglobin Sodium Potassium Chloride Carbon Dioxide BUN Creatinine Glucose POC Glucose 242 H < 40 L < 40 L Lactic Acid Calcium AST ALT Alkaline Phosphatase CK-MB (CK-2) CK-MB (CK-2) Rel Index Total Protein Albumin TSH Urine WBC (Auto) Salicylates 05/07/17 05/08/17 05/09/17 22:41 06:14 00:02 WBC RBC Hgb Hct MCV MCH RDW Plt Count Lymph % (Auto) [place] % (Auto) Eos % (Auto) [place] # Seg Neutrophils % Seg Neuts % (Manual) Lymphocytes % (Manual) Seg Neutrophils # Seg Neutrophils # Man Lymphocytes # (Manual) APTT POC ABG pH ABG pH POC ABG pCO2 POC ABG pO2 ABG pO2 ABG HCO3 ABG Base Excess ABG Hemoglobin VBG pH Oxyhemoglobin Sodium Potassium Chloride Carbon Dioxide BUN Creatinine Glucose POC Glucose 183 H 329 H 130 H Lactic Acid Calcium AST ALT Alkaline Phosphatase CK-MB (CK-2) CK-MB (CK-2) Rel Index Total Protein Albumin TSH Urine WBC (Auto) Salicylates 05/09/17 05/09/17 05/09/17 06:08 14:06 21:44 WBC RBC Hgb Hct MCV MCH RDW Plt Count Lymph % (Auto) [place] % (Auto) Eos % (Auto) [place] # Seg Neutrophils % Seg Neuts % (Manual) Lymphocytes % (Manual) Seg Neutrophils # Seg Neutrophils # Man Lymphocytes # (Manual) APTT POC ABG pH ABG pH POC ABG pCO2 POC ABG pO2 ABG pO2 ABG HCO3 ABG Base Excess ABG Hemoglobin VBG pH Oxyhemoglobin Sodium Potassium Chloride Carbon Dioxide BUN Creatinine Glucose POC Glucose 241 H 251 H 198 H Lactic Acid Calcium AST ALT Alkaline Phosphatase CK-MB (CK-2) CK-MB (CK-2) Rel Index Total Protein Albumin TSH Urine WBC (Auto) Salicylates 05/10/17 05/10/17 05/10/17 05:18 14:44 21:53 WBC RBC Hgb Hct MCV MCH RDW Plt Count Lymph % (Auto) [place] % (Auto) Eos % (Auto) [place] # Seg Neutrophils % Seg Neuts % (Manual) Lymphocytes % (Manual) Seg Neutrophils # Seg Neutrophils # Man Lymphocytes # (Manual) APTT POC ABG pH ABG pH POC ABG pCO2 POC ABG pO2 ABG pO2 ABG HCO3 ABG Base Excess ABG Hemoglobin VBG pH Oxyhemoglobin Sodium Potassium Chloride Carbon Dioxide BUN Creatinine Glucose POC Glucose 166 H 224 H 171 H Lactic Acid Calcium AST ALT Alkaline Phosphatase CK-MB (CK-2) CK-MB (CK-2) Rel Index Total Protein Albumin TSH Urine WBC (Auto) Salicylates 05/11/17 05/11/17 05/11/17 05:45 13:44 21:42 WBC RBC Hgb Hct MCV MCH RDW Plt Count Lymph % (Auto) [place] % (Auto) Eos % (Auto) [place] # Seg Neutrophils % Seg Neuts % (Manual) Lymphocytes % (Manual) Seg Neutrophils # Seg Neutrophils # Man Lymphocytes # (Manual) APTT POC ABG pH ABG pH POC ABG pCO2 POC ABG pO2 ABG pO2 ABG HCO3 ABG Base Excess ABG Hemoglobin VBG pH Oxyhemoglobin Sodium Potassium Chloride Carbon Dioxide BUN Creatinine Glucose POC Glucose 199 H 150 H 163 H Lactic Acid Calcium AST ALT Alkaline Phosphatase CK-MB (CK-2) CK-MB (CK-2) Rel Index Total Protein Albumin TSH Urine WBC (Auto) Salicylates 05/12/17 05/12/17 05/12/17 06:03 13:59 21:22 WBC RBC Hgb Hct MCV MCH RDW Plt Count Lymph % (Auto) [place] % (Auto) Eos % (Auto) [place] # Seg Neutrophils % Seg Neuts % (Manual) Lymphocytes % (Manual) Seg Neutrophils # Seg Neutrophils # Man Lymphocytes # (Manual) APTT POC ABG pH ABG pH POC ABG pCO2 POC ABG pO2 ABG pO2 ABG HCO3 ABG Base Excess ABG Hemoglobin VBG pH Oxyhemoglobin Sodium Potassium Chloride Carbon Dioxide BUN Creatinine Glucose POC Glucose 147 H 243 H 116 H Lactic Acid Calcium AST ALT Alkaline Phosphatase CK-MB (CK-2) CK-MB (CK-2) Rel Index Total Protein Albumin TSH Urine WBC (Auto) Salicylates 05/13/17 05/13/1718 05:28 13:49 21:29 WBC RBC Hgb Hct MCV MCH RDW Plt Count Lymph % (Auto) [place] % (Auto) Eos % (Auto) [place] # Seg Neutrophils % Seg Neuts % (Manual) Lymphocytes % (Manual) Seg Neutrophils # Seg Neutrophils # Man Lymphocytes # (Manual) APTT POC ABG pH ABG pH POC ABG pCO2 POC ABG pO2 ABG pO2 ABG HCO3 ABG Base Excess ABG Hemoglobin VBG pH Oxyhemoglobin Sodium Potassium Chloride Carbon Dioxide BUN Creatinine Glucose POC Glucose 213 H 224 H 379 H Lactic Acid Calcium AST ALT Alkaline Phosphatase CK-MB (CK-2) CK-MB (CK-2) Rel Index Total Protein Albumin TSH Urine WBC (Auto) Salicylates 05/14/17 05/14/17 05/14/17 05:17 13:35 21:23 WBC RBC Hgb Hct MCV MCH RDW Plt Count Lymph % (Auto) [place] % (Auto) Eos % (Auto) [place] # Seg Neutrophils % Seg Neuts % (Manual) Lymphocytes % (Manual) Seg Neutrophils # Seg Neutrophils # Man Lymphocytes # (Manual) APTT POC ABG pH ABG pH POC ABG pCO2 POC ABG pO2 ABG pO2 ABG HCO3 ABG Base Excess ABG Hemoglobin VBG pH Oxyhemoglobin Sodium Potassium Chloride Carbon Dioxide BUN Creatinine Glucose POC Glucose 234 H 242 H 218 H Lactic Acid Calcium AST ALT Alkaline Phosphatase CK-MB (CK-2) CK-MB (CK-2) Rel Index Total Protein Albumin TSH Urine WBC (Auto) Salicylates 05/15/17 05/15/17 05/16/17 04:58 13:53 01:34 WBC RBC Hgb Hct MCV MCH RDW Plt Count Lymph % (Auto) [place] % (Auto) Eos % (Auto) [place] # Seg Neutrophils % Seg Neuts % (Manual) Lymphocytes % (Manual) Seg Neutrophils # Seg Neutrophils # Man Lymphocytes # (Manual) APTT POC ABG pH ABG pH POC ABG pCO2 POC ABG pO2 ABG pO2 ABG HCO3 ABG Base Excess ABG Hemoglobin VBG pH Oxyhemoglobin Sodium Potassium Chloride Carbon Dioxide BUN Creatinine Glucose POC Glucose 310 H 193 H 263 H Lactic Acid Calcium AST ALT Alkaline Phosphatase CK-MB (CK-2) CK-MB (CK-2) Rel Index Total Protein Albumin TSH Urine WBC (Auto) Salicylates 05/16/17 05/16/17 05/16/17 06:03 14:36 21:59 WBC RBC Hgb Hct MCV MCH RDW Plt Count Lymph % (Auto) [place] % (Auto) Eos % (Auto) [place] # Seg Neutrophils % Seg Neuts % (Manual) Lymphocytes % (Manual) Seg Neutrophils # Seg Neutrophils # Man Lymphocytes # (Manual) APTT POC ABG pH ABG pH POC ABG pCO2 POC ABG pO2 ABG pO2 ABG HCO3 ABG Base Excess ABG Hemoglobin VBG pH Oxyhemoglobin Sodium Potassium Chloride Carbon Dioxide BUN Creatinine Glucose POC Glucose 330 H 272 H 198 H Lactic Acid Calcium AST ALT Alkaline Phosphatase CK-MB (CK-2) CK-MB (CK-2) Rel Index Total Protein Albumin TSH Urine WBC (Auto) Salicylates 05/17/17 05/17/17 05/18/17 05:48 13:59 05:27 WBC RBC Hgb Hct MCV MCH RDW Plt Count Lymph % (Auto) [place] % (Auto) Eos % (Auto) [place] # Seg Neutrophils % Seg Neuts % (Manual) Lymphocytes % (Manual) Seg Neutrophils # Seg Neutrophils # Man Lymphocytes # (Manual) APTT POC ABG pH ABG pH POC ABG pCO2 POC ABG pO2 ABG pO2 ABG HCO3 ABG Base Excess ABG Hemoglobin VBG pH Oxyhemoglobin Sodium Potassium Chloride Carbon Dioxide BUN Creatinine Glucose POC Glucose 204 H 229 H 152 H Lactic Acid Calcium AST ALT Alkaline Phosphatase CK-MB (CK-2) CK-MB (CK-2) Rel Index Total Protein Albumin TSH Urine WBC (Auto) Salicylates
--- NOTE | 2017-05-18 14:34 | Progress Note ---
Assessment and Plan Hypoglycemic brain injury Persistent vegetative state Metabolic encephalopathy Hypoglycemia/hypothermia, resolved Acute respiratory failure on mechanical ventilator dependent UTI with klebsiella, treated ( Cx + on 01/28), then with ESBL likely colonization hyponatremia, stable Hypothyroidism IDDM Hypertension low grade Fever, intermittently spikes temp - Cont supportive care and current medication. Monitor vitals, repeat cx on - no growth - increased dose of long acting insulin to 15 unit - Patient is DNR- needs guardianship from the state to give consent for further management, as has no family to give consent. Brief History: 51 YO Male with CKD,HTN, DM presents to ED after found down and unresponsive by his neighbor, who subsequently called EMS. Upon arrival, patient found unresponsive on the floor with a serum glucose of 21, patient has a known history of alcohol abuse and delirium tremens. The patient was administered D5 approximate 500 mls during transport without change in mental status/level of consciousness. Pt seen and evaluated in ED was was found to be unable to protect his airway. Pt was intubated and placed on vent support. Pt found to have evidence of hypothyroidism. He was started on Synthroid. He has since been in the ICU. office services specialist try to locate family, even spoke to the friends who he lives with. They themselves were unaware of any family members. After ethics committee meeting on the patient, the decision was made to make him DO NOT RESUSCITATE and to transfer him to hospice. Given his very poor prognosis and poor likelihood of recovery. It was decided that was not his best interest to get trach and PEG. Therefore he'll be transferred to the hospice intubated. Now Awaiting on court order /state guardianship. Hospitalist Physical - Physical exam Narrative exam: General: open eyes HEENT: Moist mucous membranes, , no lymphadenopathy Neck: supple Cardiac: S1-S2 heard Lungs: mechnical ventilated breath sounds Abdomen: soft , nontender, nondistended, bowel sounds positive Extremities: no edema clubbing or cyanosis Skin: no rash or lesions Neurologic: opens eyes, withdraws from painful stimuli, does not follow commend Subjective Date of service: 05/18/17 Principal diagnosis: Acute respiratory failure,encephalopathy Interval history: afebrile o/n, BG stable Objective - Constitutional Vitals: Vital Signs - 12hr 05/18/17 05/18/17 05/18/17 03:23 03:30 03:58 Temperature 98.6 F Pulse Rate 67 68 Pulse Rate [ From Monitor] Respiratory Rate Blood Pressure 107/73 O2 Sat by Pulse 99 Oximetry 05/18/17 05/18/17 05/18/17 04:00 06:00 08:00 Temperature 99.5 F Pulse Rate 68 68 67 Pulse Rate [ From Monitor] Respiratory 12 12 13 Rate Blood Pressure 97/67 97/67 104/69 O2 Sat by Pulse 98 100 100 Oximetry 05/18/17 05/18/17 05/18/17 08:10 08:50 10:00 Temperature Pulse Rate 70 76 Pulse Rate [ 74 From Monitor] Respiratory 20 15 Rate Blood Pressure 104/69 O2 Sat by Pulse 99 99 Oximetry 05/18/17 05/18/17 10:01 12:00 Temperature 99.4 F Pulse Rate 70 76 Pulse Rate [ From Monitor] Respiratory 16 21 Rate Blood Pressure 104/69 103/71 O2 Sat by Pulse 100 98 Oximetry - Labs CBC & Chem 7: 04/28/17 05:10 04/28/17 05:10 Labs: Abnormal lab results 05/17/17 05/18/17 05/18/17 Range/Units 13:59 05:27 14:16 POC Glucose 229 H 152 H 217 H (70-105)
[2017-05-19] MEDS: HumuLIN R SUB-Q SCH ×2 (05:31→15:05)
[2017-05-19] MEDS: LEVEMIR (NF) SUB-Q SCH (08:49)
--- NOTE | 2017-05-19 10:04 | Progress Note ---
Assessment and Plan Acute respiratory failure secondary to metabolic event, prolonged vent support Hypoglycemia/hypothermia - Hypothyroidism; UTI/SIRS.Resolved Metabolic encephalopathy. Main clinical problem, residual vegetative state, sever.No mayor improvement or change Rec: Comfort care measures T of monitoring and suction BS better. Still waiting for decision on health care proxy. See Dr. Horta/[facility] notes regarding power for real estate attorney/proxy designation process status. Documents signed for [facility] proxy update, hospice care evaluation Poor prognosis,unchanged status CCT 31 min Subjective Date of service: 05/19/17 Principal diagnosis: Acute respiratory failure,encephalopathy Interval history: intubated Objective Vital Signs - 12hr 05/18/17 05/19/17 05/19/17 23:44 00:00 01:33 Temperature 96.0 F L Pulse Rate 64 67 Respiratory 13 Rate Blood Pressure 101/68 O2 Sat by Pulse 100 Oximetry 05/19/17 05/19/17 05/19/17 02:00 03:27 04:01 Temperature 96.2 F L Pulse Rate 66 67 Respiratory 17 14 Rate Blood Pressure 101/68 110/65 O2 Sat by Pulse 100 100 Oximetry 05/19/17 05/19/17 05:08 06:01 Temperature Pulse Rate 66 68 Respiratory 12 Rate Blood Pressure 110/65 110/65 O2 Sat by Pulse 100 100 Oximetry Constitutional: no acute distress, other (on vent) Eyes: non-icteric ENT: oropharynx moist, other (ETT in position) Neck: supple Effort: normal Ascultation: Bilateral: clear, diminished breath sounds Cardiovascular: regular rate and rhythm (no mrg) Gastrointestinal: normoactive bowel sounds, soft, non-tender, non-distended Integumentary: normal Extremities: no cyanosis, no edema, pink and warm Neurologic: pupils equal and round, other (opens eyes spontaneously, but no responce to commands, not following commands,mild response to touch/pain) Psychiatric: other (unable to obtain) CBC and BMP: 04/28/17 05:10 04/28/17 05:10 ABG, PT/INR, D-dimer: ABG POC ABG pH 7.442 (7.35-7.45) 01/31/17 18:55 ABG pH 7.420 pH Units (7.350-7.450) 01/17/17 04:35 POC ABG pCO2 32.8 (35-45) L 01/31/17 18:55 ABG pCO2 34.5 mm Hg 01/17/17 04:35 POC ABG pO2 82 (80-105) 01/31/17 18:55 ABG pO2 160.3 mm Hg (80.0-90.0) H 01/17/17 04:35 POC ABG HCO3 22.4 01/31/17 18:55 POC ABG Total CO2 23 01/31/17 18:55 POC ABG O2 Sat 97 01/31/17 18:55 ABG O2 Saturation 99.0 % (95.0-99.0) 01/17/17 04:35 PT/INR, D-dimer PT 14.1 Sec. (12.2-14.9) 01/17/17 04:10 INR 1.04 (0.87-1.13) 01/17/17 04:10 Abnormal lab findings: Abnormal Labs 01/09/17 01/09/17 01/09/17 10:16 10:16 10:16 WBC RBC Hgb 9.7 L Hct 28.4 L MCV 76 L MCH 26 L RDW 17.2 H Plt Count 448 H Lymph % (Auto) Hickman % (Auto) Eos % (Auto) Hickman # Seg Neutrophils % 79.5 H Seg Neuts % (Manual) Lymphocytes % (Manual) Seg Neutrophils # Seg Neutrophils # Man Lymphocytes # (Manual) APTT 39.6 H POC ABG pH ABG pH POC ABG pCO2 POC ABG pO2 ABG pO2 ABG HCO3 ABG Base Excess ABG Hemoglobin VBG pH Oxyhemoglobin Sodium 132 L Potassium Chloride 96.7 L Carbon Dioxide 21 L BUN 34 H Creatinine Glucose POC Glucose Lactic Acid Calcium 8.3 L AST ALT Alkaline Phosphatase 151 H CK-MB (CK-2) 7.1 H CK-MB (CK-2) Rel Index 5.2 H Total Protein Albumin 3.3 L TSH Urine WBC (Auto) Salicylates 01/09/17 01/09/17 01/09/17 10:16 10:16 10:16 WBC RBC Hgb Hct MCV MCH RDW Plt Count Lymph % (Auto) Hickman % (Auto) Eos % (Auto) H[place]man # Seg Neutrophils % Seg Neuts % (Manual) Lymphocytes % (Manual) Seg Neutrophils # Seg Neutrophils # Man Lymphocytes # (Manual) APTT POC ABG pH ABG pH POC ABG pCO2 POC ABG pO2 ABG pO2 ABG HCO3 ABG Base Excess ABG Hemoglobin VBG pH 7.284 L Oxyhemoglobin Sodium Potassium Chloride Carbon Dioxide BUN Creatinine Glucose POC Glucose Lactic Acid Calcium AST ALT Alkaline Phosphatase CK-MB (CK-2) CK-MB (CK-2) Rel Index Total Protein Albumin TSH 52.800 H Urine WBC (Auto) Salicylates < 0.3 L 01/09/17 01/09/17 01/09/17 10:23 11:14 12:49 WBC RBC Hgb Hct MCV MCH RDW Plt Count Lymph % (Auto) Hickman % (Auto) Eos % (Auto) [place]man # Seg Neutrophils % Seg Neuts % (Manual) Lymphocytes % (Manual) Seg Neutrophils # Seg Neutrophils # Man Lymphocytes # (Manual) APTT POC ABG pH ABG pH POC ABG pCO2 POC ABG pO2 643 H ABG pO2 ABG HCO3 ABG Base Excess ABG Hemoglobin VBG pH Oxyhemoglobin Sodium Potassium Chloride Carbon Dioxide BUN Creatinine Glucose POC Glucose < 40 L Lactic Acid Calcium AST ALT Alkaline Phosphatase CK-MB (CK-2) CK-MB (CK-2) Rel Index Total Protein Albumin TSH Urine WBC (Auto) 61.0 H Salicylates 01/09/17 01/09/17 01/09/17 13:13 14:21 15:09 WBC RBC Hgb Hct MCV MCH RDW Plt Count Lymph % (Auto) [place]ickman % (Auto) Eos % (Auto) [place] # Seg Neutrophils % Seg Neuts % (Manual) Lymphocytes % (Manual) Seg Neutrophils # Seg Neutrophils # Man Lymphocytes # (Manual) APTT POC ABG pH ABG pH POC ABG pCO2 POC ABG pO2 ABG pO2 ABG HCO3 ABG Base Excess ABG Hemoglobin VBG pH Oxyhemoglobin Sodium Potassium Chloride Carbon Dioxide BUN Creatinine Glucose POC Glucose 128 H 65 L 120 H Lactic Acid Calcium AST ALT Alkaline Phosphatase CK-MB (CK-2) CK-MB (CK-2) Rel Index Total Protein Albumin TSH Urine WBC (Auto) Salicylates 01/09/17 01/09/17 01/10/17 16:28 17:14 04:30 WBC 24.1 H RBC 3.38 L Hgb 8.5 L Hct 26.0 L MCV 77 L MCH 25 L RDW 17.9 H Plt Count 474 H Lymph % (Auto) [place]ickman % (Auto) Eos % (Auto) [place]man # Seg Neutrophils % Seg Neuts % (Manual) 88.0 H Lymphocytes % (Manual) 4.0 L Seg Neutrophils # Seg Neutrophils # Man 21.2 H Lymphocytes # (Manual) 1.0 L APTT POC ABG pH ABG pH POC ABG pCO2 POC ABG pO2 ABG pO2 ABG HCO3 ABG Base Excess ABG Hemoglobin VBG pH Oxyhemoglobin Sodium Potassium Chloride Carbon Dioxide BUN Creatinine Glucose POC Glucose 44 L 112 H Lactic Acid Calcium AST ALT Alkaline Phosphatase CK-MB (CK-2) CK-MB (CK-2) Rel Index Total Protein Albumin TSH Urine WBC (Auto) Salicylates 01/10/17 01/10/17 01/10/17 04:30 05:41 05:45 WBC RBC Hgb Hct MCV MCH RDW Plt Count Lymph % (Auto) [place]ickman % (Auto) Eos % (Auto) [place]man # Seg Neutrophils % Seg Neuts % (Manual) Lymphocytes % (Manual) Seg Neutrophils # Seg Neutrophils # Man Lymphocytes # (Manual) APTT POC ABG pH ABG pH POC ABG pCO2 26.6 L POC ABG pO2 207 H ABG pO2 ABG HCO3 ABG Base Excess ABG Hemoglobin VBG pH Oxyhemoglobin Sodium Potassium Chloride Carbon Dioxide 17 L BUN 27 H Creatinine Glucose POC Glucose 68 L Lactic Acid Calcium 7.5 L AST ALT Alkaline Phosphatase CK-MB (CK-2) CK-MB (CK-2) Rel Index Total Protein Albumin TSH Urine WBC (Auto) Salicylates 01/10/17 01/10/17 01/10/17 07:47 10:50 13:41 WBC RBC Hgb Hct MCV MCH RDW Plt Count Lymph % (Auto) [place]ickman % (Auto) Eos % (Auto) [place]man # Seg Neutrophils % Seg Neuts % (Manual) Lymphocytes % (Manual) Seg Neutrophils # Seg Neutrophils # Man Lymphocytes # (Manual) APTT POC ABG pH ABG pH POC ABG pCO2 POC ABG pO2 ABG pO2 ABG HCO3 ABG Base Excess ABG Hemoglobin VBG pH Oxyhemoglobin Sodium Potassium Chloride Carbon Dioxide BUN Creatinine Glucose POC Glucose 148 H 165 H 114 H Lactic Acid Calcium AST ALT Alkaline Phosphatase CK-MB (CK-2) CK-MB (CK-2) Rel Index Total Protein Albumin TSH Urine WBC (Auto) Salicylates 01/10/17 01/10/17 01/10/17 20:20 21:39 23:24 WBC RBC Hgb Hct MCV MCH RDW Plt Count Lymph % (Auto) [place]ickman % (Auto) Eos % (Auto) [place]man # Seg Neutrophils % Seg Neuts % (Manual) Lymphocytes % (Manual) Seg Neutrophils # Seg Neutrophils # Man Lymphocytes # (Manual) APTT POC ABG pH ABG pH POC ABG pCO2 POC ABG pO2 ABG pO2 ABG HCO3 ABG Base Excess ABG Hemoglobin VBG pH Oxyhemoglobin Sodium Potassium Chloride Carbon Dioxide BUN Creatinine Glucose POC Glucose 150 H 175 H 155 H Lactic Acid Calcium AST ALT Alkaline Phosphatase CK-MB (CK-2) CK-MB (CK-2) Rel Index Total Protein Albumin TSH Urine WBC (Auto) Salicylates 01/11/17 01/11/17 01/11/17 00:19 04:06 05:20 WBC 15.2 H RBC 3.40 L Hgb 8.9 L Hct 26.3 L MCV 78 L MCH 26 L RDW 18.6 H Plt Count 462 H Lymph % (Auto) 13.2 L Hickman % (Auto) Eos % (Auto) [place]ickman # Seg Neutrophils % 80.8 H Seg Neuts % (Manual) Lymphocytes % (Manual) Seg Neutrophils # 12.3 H Seg Neutrophils # Man Lymphocytes # (Manual) APTT POC ABG pH 7.463 H ABG pH POC ABG pCO2 26.2 L POC ABG pO2 185 H ABG pO2 ABG HCO3 ABG Base Excess ABG Hemoglobin VBG pH Oxyhemoglobin Sodium Potassium Chloride Carbon Dioxide BUN Creatinine Glucose POC Glucose 163 H Lactic Acid Calcium AST ALT Alkaline Phosphatase CK-MB (CK-2) CK-MB (CK-2) Rel Index Total Protein Albumin TSH Urine WBC (Auto) Salicylates 01/11/17 01/11/17 01/11/17 05:20 06:21 07:57 WBC RBC Hgb Hct MCV MCH RDW Plt Count Lymph % (Auto) Hickman % (Auto) Eos % (Auto) [place]man # Seg Neutrophils % Seg Neuts % (Manual) Lymphocytes % (Manual) Seg Neutrophils # Seg Neutrophils # Man Lymphocytes # (Manual) APTT POC ABG pH ABG pH POC ABG pCO2 POC ABG pO2 ABG pO2 ABG HCO3 ABG Base Excess ABG Hemoglobin VBG pH Oxyhemoglobin Sodium Potassium 3.4 L Chloride 111.5 H Carbon Dioxide 17 L BUN Creatinine Glucose 147 H POC Glucose 139 H 188 H Lactic Acid Calcium 8.0 L AST ALT Alkaline Phosphatase CK-MB (CK-2) CK-MB (CK-2) Rel Index Total Protein Albumin TSH Urine WBC (Auto) Salicylates 01/11/17 01/11/17 01/11/17 11:46 16:50 23:15 WBC RBC Hgb Hct MCV MCH RDW Plt Count Lymph % (Auto) Hickman % (Auto) Eos % (Auto) [place]man # Seg Neutrophils % Seg Neuts % (Manual) Lymphocytes % (Manual) Seg Neutrophils # Seg Neutrophils # Man Lymphocytes # (Manual) APTT POC ABG pH ABG pH POC ABG pCO2 POC ABG pO2 ABG pO2 ABG HCO3 ABG Base Excess ABG Hemoglobin VBG pH Oxyhemoglobin Sodium Potassium Chloride Carbon Dioxide BUN Creatinine Glucose POC Glucose 199 H 235 H 155 H Lactic Acid Calcium AST ALT Alkaline Phosphatase CK-MB (CK-2) CK-MB (CK-2) Rel Index Total Protein Albumin TSH Urine WBC (Auto) Salicylates 01/12/17 01/12/17 01/12/17 05:02 06:56 14:50 WBC RBC Hgb Hct MCV MCH RDW Plt Count Lymph % (Auto) Hickman % (Auto) Eos % (Auto) [place]man # Seg Neutrophils % Seg Neuts % (Manual) Lymphocytes % (Manual) Seg Neutrophils # Seg Neutrophils # Man Lymphocytes # (Manual) APTT POC ABG pH ABG pH POC ABG pCO2 28.0 L POC ABG pO2 178 H ABG pO2 ABG HCO3 ABG Base Excess ABG Hemoglobin VBG pH Oxyhemoglobin Sodium Potassium Chloride Carbon Dioxide BUN Creatinine Glucose POC Glucose 119 H 164 H Lactic Acid Calcium AST ALT Alkaline Phosphatase CK-MB (CK-2) CK-MB (CK-2) Rel Index Total Protein Albumin TSH Urine WBC (Auto) Salicylates 01/13/17 01/13/17 01/13/17 03:37 03:37 04:26 WBC RBC 3.61 L Hgb 9.3 L Hct 28.0 L MCV 78 L MCH 26 L RDW 18.2 H Plt Count Lymph % (Auto) Hickman % (Auto) Eos % (Auto) [place]man # Seg Neutrophils % Seg Neuts % (Manual) Lymphocytes % (Manual) Seg Neutrophils # Seg Neutrophils # Man Lymphocytes # (Manual) APTT POC ABG pH 7.485 H ABG pH POC ABG pCO2 25.4 L POC ABG pO2 73 L ABG pO2 ABG HCO3 ABG Base Excess ABG Hemoglobin VBG pH Oxyhemoglobin Sodium Potassium Chloride 112.4 H Carbon Dioxide 19 L BUN Creatinine Glucose 118 H POC Glucose Lactic Acid Calcium 8.0 L AST ALT Alkaline Phosphatase CK-MB (CK-2) CK-MB (CK-2) Rel Index Total Protein Albumin TSH Urine WBC (Auto) Salicylates 01/13/17 01/13/17 01/13/17 06:15 11:50 17:31 WBC RBC Hgb Hct MCV MCH RDW Plt Count Lymph % (Auto) Hickman % (Auto) Eos % (Auto) [place]man # Seg Neutrophils % Seg Neuts % (Manual) Lymphocytes % (Manual) Seg Neutrophils # Seg Neutrophils # Man Lymphocytes # (Manual) APTT POC ABG pH ABG pH POC ABG pCO2 POC ABG pO2 ABG pO2 ABG HCO3 ABG Base Excess ABG Hemoglobin VBG pH Oxyhemoglobin Sodium Potassium Chloride Carbon Dioxide BUN Creatinine Glucose POC Glucose 116 H 171 H 203 H Lactic Acid Calcium AST ALT Alkaline Phosphatase CK-MB (CK-2) CK-MB (CK-2) Rel Index Total Protein Albumin TSH Urine WBC (Auto) Salicylates 01/14/17 01/14/17 01/14/17 00:02 04:50 04:50 WBC RBC 3.32 L Hgb 8.5 L Hct 26.1 L MCV 79 L MCH 26 L RDW 18.2 H Plt Count Lymph % (Auto) Hickman % (Auto) 9.0 H Eos % (Auto) [place]man # Seg Neutrophils % Seg Neuts % (Manual) Lymphocytes % (Manual) Seg Neutrophils # Seg Neutrophils # Man Lymphocytes # (Manual) APTT POC ABG pH ABG pH POC ABG pCO2 POC ABG pO2 ABG pO2 ABG HCO3 ABG Base Excess ABG Hemoglobin VBG pH Oxyhemoglobin Sodium Potassium Chloride 112.5 H Carbon Dioxide BUN Creatinine Glucose 149 H POC Glucose 157 H Lactic Acid Calcium 8.1 L AST ALT Alkaline Phosphatase CK-MB (CK-2) CK-MB (CK-2) Rel Index Total Protein Albumin TSH Urine WBC (Auto) Salicylates 01/14/17 01/14/17 01/14/17 05:10 11:27 14:07 WBC RBC Hgb Hct MCV MCH RDW Plt Count Lymph % (Auto) [place]ickman % (Auto) Eos % (Auto) [place]man # Seg Neutrophils % Seg Neuts % (Manual) Lymphocytes % (Manual) Seg Neutrophils # Seg Neutrophils # Man Lymphocytes # (Manual) APTT POC ABG pH ABG pH POC ABG pCO2 POC ABG pO2 ABG pO2 ABG HCO3 ABG Base Excess ABG Hemoglobin VBG pH Oxyhemoglobin Sodium Potassium Chloride Carbon Dioxide BUN Creatinine Glucose POC Glucose 176 H 147 H Lactic Acid Calcium AST ALT Alkaline Phosphatase CK-MB (CK-2) CK-MB (CK-2) Rel Index Total Protein Albumin TSH Urine WBC (Auto) 53.0 H Salicylates 01/14/17 01/15/17 01/15/17 16:52 00:04 05:26 WBC RBC Hgb Hct MCV MCH RDW Plt Count Lymph % (Auto) Hickman % (Auto) Eos % (Auto) [place]man # Seg Neutrophils % Seg Neuts % (Manual) Lymphocytes % (Manual) Seg Neutrophils # Seg Neutrophils # Man Lymphocytes # (Manual) APTT POC ABG pH ABG pH POC ABG pCO2 POC ABG pO2 ABG pO2 ABG HCO3 ABG Base Excess ABG Hemoglobin VBG pH Oxyhemoglobin Sodium Potassium Chloride Carbon Dioxide BUN Creatinine Glucose POC Glucose 131 H 193 H 215 H Lactic Acid Calcium AST ALT Alkaline Phosphatase CK-MB (CK-2) CK-MB (CK-2) Rel Index Total Protein Albumin TSH Urine WBC (Auto) Salicylates 01/15/17 01/15/17 01/15/17 11:49 17:47 21:33 WBC RBC Hgb Hct MCV MCH RDW Plt Count Lymph % (Auto) [place]ickman % (Auto) Eos % (Auto) [place] # Seg Neutrophils % Seg Neuts % (Manual) Lymphocytes % (Manual) Seg Neutrophils # Seg Neutrophils # Man Lymphocytes # (Manual) APTT POC ABG pH ABG pH POC ABG pCO2 POC ABG pO2 ABG pO2 ABG HCO3 ABG Base Excess ABG Hemoglobin VBG pH Oxyhemoglobin Sodium Potassium Chloride Carbon Dioxide BUN Creatinine Glucose POC Glucose 121 H 211 H 275 H Lactic Acid Calcium AST ALT Alkaline Phosphatase CK-MB (CK-2) CK-MB (CK-2) Rel Index Total Protein Albumin TSH Urine WBC (Auto) Salicylates 01/16/17 01/16/17 01/16/17 04:30 05:28 13:45 WBC RBC Hgb Hct MCV MCH RDW Plt Count Lymph % (Auto) [place]ickman % (Auto) Eos % (Auto) [place] # Seg Neutrophils % Seg Neuts % (Manual) Lymphocytes % (Manual) Seg Neutrophils # Seg Neutrophils # Man Lymphocytes # (Manual) APTT POC ABG pH ABG pH 7.457 H POC ABG pCO2 POC ABG pO2 ABG pO2 55.1 L ABG HCO3 19.4 L ABG Base Excess -4.0 L ABG Hemoglobin 6.8 L VBG pH Oxyhemoglobin 94.9 L Sodium Potassium Chloride Carbon Dioxide BUN Creatinine Glucose POC Glucose 271 H 236 H Lactic Acid Calcium AST ALT Alkaline Phosphatase CK-MB (CK-2) CK-MB (CK-2) Rel Index Total Protein Albumin TSH Urine WBC (Auto) Salicylates 01/16/17 01/17/17 01/17/17 21:39 04:10 04:10 WBC 4.4 L RBC 2.98 L Hgb 7.7 L Hct 23.3 L MCV 78 L MCH 26 L RDW 18.1 H Plt Count Lymph % (Auto) Hickman % (Auto) Eos % (Auto) [place]man # Seg Neutrophils % Seg Neuts % (Manual) Lymphocytes % (Manual) Seg Neutrophils # Seg Neutrophils # Man Lymphocytes # (Manual) APTT POC ABG pH ABG pH POC ABG pCO2 POC ABG pO2 ABG pO2 ABG HCO3 ABG Base Excess ABG Hemoglobin VBG pH Oxyhemoglobin Sodium Potassium 3.3 L Chloride 108.7 H Carbon Dioxide 20 L BUN 8 L Creatinine Glucose 202 H POC Glucose 258 H Lactic Acid Calcium 7.6 L AST ALT Alkaline Phosphatase CK-MB (CK-2) CK-MB (CK-2) Rel Index Total Protein Albumin TSH Urine WBC (Auto) Salicylates 01/17/17 01/17/17 01/17/17 04:35 12:23 16:01 WBC RBC Hgb Hct MCV MCH RDW Plt Count Lymph % (Auto) Hickman % (Auto) Eos % (Auto) [place]man # Seg Neutrophils % Seg Neuts % (Manual) Lymphocytes % (Manual) Seg Neutrophils # Seg Neutrophils # Man Lymphocytes # (Manual) APTT POC ABG pH ABG pH POC ABG pCO2 POC ABG pO2 ABG pO2 160.3 H ABG HCO3 ABG Base Excess -2.3 L ABG Hemoglobin 7.9 L VBG pH Oxyhemoglobin Sodium Potassium Chloride Carbon Dioxide BUN Creatinine Glucose POC Glucose 321 H 239 H Lactic Acid Calcium AST ALT Alkaline Phosphatase CK-MB (CK-2) CK-MB (CK-2) Rel Index Total Protein Albumin TSH Urine WBC (Auto) Salicylates 01/18/17 01/18/17 01/18/17 05:07 12:09 17:54 WBC RBC Hgb Hct MCV MCH RDW Plt Count Lymph % (Auto) Hickman % (Auto) Eos % (Auto) [place] # Seg Neutrophils % Seg Neuts % (Manual) Lymphocytes % (Manual) Seg Neutrophils # Seg Neutrophils # Man Lymphocytes # (Manual) APTT POC ABG pH ABG pH POC ABG pCO2 POC ABG pO2 ABG pO2 ABG HCO3 ABG Base Excess ABG Hemoglobin VBG pH Oxyhemoglobin Sodium Potassium Chloride Carbon Dioxide BUN Creatinine Glucose POC Glucose 155 H 203 H 132 H Lactic Acid Calcium AST ALT Alkaline Phosphatase CK-MB (CK-2) CK-MB (CK-2) Rel Index Total Protein Albumin TSH Urine WBC (Auto) Salicylates 01/18/17 01/19/17 01/19/17 23:43 04:28 12:11 WBC RBC Hgb Hct MCV MCH RDW Plt Count Lymph % (Auto) Hickman % (Auto) Eos % (Auto) [place] # Seg Neutrophils % Seg Neuts % (Manual) Lymphocytes % (Manual) Seg Neutrophils # Seg Neutrophils # Man Lymphocytes # (Manual) APTT POC ABG pH ABG pH POC ABG pCO2 POC ABG pO2 ABG pO2 ABG HCO3 ABG Base Excess ABG Hemoglobin VBG pH Oxyhemoglobin Sodium Potassium Chloride Carbon Dioxide BUN Creatinine Glucose POC Glucose 125 H 182 H 153 H Lactic Acid Calcium AST ALT Alkaline Phosphatase CK-MB (CK-2) CK-MB (CK-2) Rel Index Total Protein Albumin TSH Urine WBC (Auto) Salicylates 01/19/17 01/20/17 01/20/17 17:23 00:12 05:44 WBC RBC Hgb Hct MCV MCH RDW Plt Count Lymph % (Auto) [place]ickman % (Auto) Eos % (Auto) [place] # Seg Neutrophils % Seg Neuts % (Manual) Lymphocytes % (Manual) Seg Neutrophils # Seg Neutrophils # Man Lymphocytes # (Manual) APTT POC ABG pH ABG pH POC ABG pCO2 POC ABG pO2 ABG pO2 ABG HCO3 ABG Base Excess ABG Hemoglobin VBG pH Oxyhemoglobin Sodium Potassium Chloride Carbon Dioxide BUN Creatinine Glucose POC Glucose 66 L 139 H 176 H Lactic Acid Calcium AST ALT Alkaline Phosphatase CK-MB (CK-2) CK-MB (CK-2) Rel Index Total Protein Albumin TSH Urine WBC (Auto) Salicylates 01/20/17 01/20/17 01/20/17 11:48 17:42 23:43 WBC RBC Hgb Hct MCV MCH RDW Plt Count Lymph % (Auto) [place]ickman % (Auto) Eos % (Auto) [place] # Seg Neutrophils % Seg Neuts % (Manual) Lymphocytes % (Manual) Seg Neutrophils # Seg Neutrophils # Man Lymphocytes # (Manual) APTT POC ABG pH ABG pH POC ABG pCO2 POC ABG pO2 ABG pO2 ABG HCO3 ABG Base Excess ABG Hemoglobin VBG pH Oxyhemoglobin Sodium Potassium Chloride Carbon Dioxide BUN Creatinine Glucose POC Glucose 218 H 132 H 178 H Lactic Acid Calcium AST ALT Alkaline Phosphatase CK-MB (CK-2) CK-MB (CK-2) Rel Index Total Protein Albumin TSH Urine WBC (Auto) Salicylates 01/21/17 01/21/17 01/21/17 05:34 11:17 23:37 WBC RBC Hgb Hct MCV MCH RDW Plt Count Lymph % (Auto) [place]man % (Auto) Eos % (Auto) [place] # Seg Neutrophils % Seg Neuts % (Manual) Lymphocytes % (Manual) Seg Neutrophils # Seg Neutrophils # Man Lymphocytes # (Manual) APTT POC ABG pH ABG pH POC ABG pCO2 POC ABG pO2 ABG pO2 ABG HCO3 ABG Base Excess ABG Hemoglobin VBG pH Oxyhemoglobin Sodium Potassium Chloride Carbon Dioxide BUN Creatinine Glucose POC Glucose 106 H 213 H 140 H Lactic Acid Calcium AST ALT Alkaline Phosphatase CK-MB (CK-2) CK-MB (CK-2) Rel Index Total Protein Albumin TSH Urine WBC (Auto) Salicylates 01/22/17 01/22/17 01/22/17 04:00 04:00 04:58 WBC RBC 3.26 L Hgb 8.3 L Hct 25.5 L MCV 78 L MCH 25 L RDW 17.9 H Plt Count Lymph % (Auto) Hickman % (Auto) 7.9 H Eos % (Auto) 6.2 H [place]ickman # Seg Neutrophils % Seg Neuts % (Manual) Lymphocytes % (Manual) Seg Neutrophils # Seg Neutrophils # Man Lymphocytes # (Manual) APTT POC ABG pH ABG pH POC ABG pCO2 POC ABG pO2 ABG pO2 ABG HCO3 ABG Base Excess ABG Hemoglobin VBG pH Oxyhemoglobin Sodium Potassium Chloride 95.5 L Carbon Dioxide 31 H D BUN Creatinine Glucose 134 H POC Glucose 146 H Lactic Acid Calcium AST 44 H ALT Alkaline Phosphatase 379 H CK-MB (CK-2) CK-MB (CK-2) Rel Index Total Protein Albumin 2.7 L TSH Urine WBC (Auto) Salicylates 01/22/17 01/22/17 01/22/17 12:12 18:12 23:39 WBC RBC Hgb Hct MCV MCH RDW Plt Count Lymph % (Auto) [place]ickman % (Auto) Eos % (Auto) [place] # Seg Neutrophils % Seg Neuts % (Manual) Lymphocytes % (Manual) Seg Neutrophils # Seg Neutrophils # Man Lymphocytes # (Manual) APTT POC ABG pH ABG pH POC ABG pCO2 POC ABG pO2 ABG pO2 ABG HCO3 ABG Base Excess ABG Hemoglobin VBG pH Oxyhemoglobin Sodium Potassium Chloride Carbon Dioxide BUN Creatinine Glucose POC Glucose 255 H 182 H 134 H Lactic Acid Calcium AST ALT Alkaline Phosphatase CK-MB (CK-2) CK-MB (CK-2) Rel Index Total Protein Albumin TSH Urine WBC (Auto) Salicylates 01/23/17 01/23/17 01/23/17 04:43 12:12 17:36 WBC RBC Hgb Hct MCV MCH RDW Plt Count Lymph % (Auto) [place]man % (Auto) Eos % (Auto) [place] # Seg Neutrophils % Seg Neuts % (Manual) Lymphocytes % (Manual) Seg Neutrophils # Seg Neutrophils # Man Lymphocytes # (Manual) APTT POC ABG pH ABG pH POC ABG pCO2 POC ABG pO2 ABG pO2 ABG HCO3 ABG Base Excess ABG Hemoglobin VBG pH Oxyhemoglobin Sodium Potassium Chloride Carbon Dioxide BUN Creatinine Glucose POC Glucose 218 H 128 H 156 H Lactic Acid Calcium AST ALT Alkaline Phosphatase CK-MB (CK-2) CK-MB (CK-2) Rel Index Total Protein Albumin TSH Urine WBC (Auto) Salicylates 01/24/17 01/24/17 01/24/17 00:08 05:16 11:40 WBC RBC Hgb Hct MCV MCH RDW Plt Count Lymph % (Auto) [place]man % (Auto) Eos % (Auto) [place] # Seg Neutrophils % Seg Neuts % (Manual) Lymphocytes % (Manual) Seg Neutrophils # Seg Neutrophils # Man Lymphocytes # (Manual) APTT POC ABG pH ABG pH POC ABG pCO2 POC ABG pO2 ABG pO2 ABG HCO3 ABG Base Excess ABG Hemoglobin VBG pH Oxyhemoglobin Sodium Potassium Chloride Carbon Dioxide BUN Creatinine Glucose POC Glucose 129 H 169 H 187 H Lactic Acid Calcium AST ALT Alkaline Phosphatase CK-MB (CK-2) CK-MB (CK-2) Rel Index Total Protein Albumin TSH Urine WBC (Auto) Salicylates 01/24/17 01/24/17 01/25/17 17:43 23:23 04:56 WBC RBC Hgb Hct MCV MCH RDW Plt Count Lymph % (Auto) [place]man % (Auto) Eos % (Auto) [place] # Seg Neutrophils % Seg Neuts % (Manual) Lymphocytes % (Manual) Seg Neutrophils # Seg Neutrophils # Man Lymphocytes # (Manual) APTT POC ABG pH ABG pH POC ABG pCO2 POC ABG pO2 ABG pO2 ABG HCO3 ABG Base Excess ABG Hemoglobin VBG pH Oxyhemoglobin Sodium Potassium Chloride Carbon Dioxide BUN Creatinine Glucose POC Glucose 215 H 222 H 210 H Lactic Acid Calcium AST ALT Alkaline Phosphatase CK-MB (CK-2) CK-MB (CK-2) Rel Index Total Protein Albumin TSH Urine WBC (Auto) Salicylates 01/25/17 01/25/17 01/26/17 11:52 17:37 00:02 WBC RBC Hgb Hct MCV MCH RDW Plt Count Lymph % (Auto) [place] % (Auto) Eos % (Auto) [place] # Seg Neutrophils % Seg Neuts % (Manual) Lymphocytes % (Manual) Seg Neutrophils # Seg Neutrophils # Man Lymphocytes # (Manual) APTT POC ABG pH ABG pH POC ABG pCO2 POC ABG pO2 ABG pO2 ABG HCO3 ABG Base Excess ABG Hemoglobin VBG pH Oxyhemoglobin Sodium Potassium Chloride Carbon Dioxide BUN Creatinine Glucose POC Glucose 284 H 218 H 192 H Lactic Acid Calcium AST ALT Alkaline Phosphatase CK-MB (CK-2) CK-MB (CK-2) Rel Index Total Protein Albumin TSH Urine WBC (Auto) Salicylates 01/26/17 01/26/17 01/26/17 05:33 12:17 17:50 WBC RBC Hgb Hct MCV MCH RDW Plt Count Lymph % (Auto) [place] % (Auto) Eos % (Auto) [place] # Seg Neutrophils % Seg Neuts % (Manual) Lymphocytes % (Manual) Seg Neutrophils # Seg Neutrophils # Man Lymphocytes # (Manual) APTT POC ABG pH ABG pH POC ABG pCO2 POC ABG pO2 ABG pO2 ABG HCO3 ABG Base Excess ABG Hemoglobin VBG pH Oxyhemoglobin Sodium Potassium Chloride Carbon Dioxide BUN Creatinine Glucose POC Glucose 199 H 227 H 229 H Lactic Acid Calcium AST ALT Alkaline Phosphatase CK-MB (CK-2) CK-MB (CK-2) Rel Index Total Protein Albumin TSH Urine WBC (Auto) Salicylates 01/26/17 01/27/17 01/27/17 23:57 05:31 11:42 WBC RBC Hgb Hct MCV MCH RDW Plt Count Lymph % (Auto) [place] % (Auto) Eos % (Auto) [place] # Seg Neutrophils % Seg Neuts % (Manual) Lymphocytes % (Manual) Seg Neutrophils # Seg Neutrophils # Man Lymphocytes # (Manual) APTT POC ABG pH ABG pH POC ABG pCO2 POC ABG pO2 ABG pO2 ABG HCO3 ABG Base Excess ABG Hemoglobin VBG pH Oxyhemoglobin Sodium Potassium Chloride Carbon Dioxide BUN Creatinine Glucose POC Glucose 186 H 285 H 260 H Lactic Acid Calcium AST ALT Alkaline Phosphatase CK-MB (CK-2) CK-MB (CK-2) Rel Index Total Protein Albumin TSH Urine WBC (Auto) Salicylates 01/27/17 01/27/17 01/27/17 17:47 23:58 Unknown WBC 12.1 H RBC 3.28 L Hgb 8.5 L Hct 25.5 L MCV 78 L MCH 26 L RDW 16.8 H Plt Count 601 H Lymph % (Auto) [place] % (Auto) Eos % (Auto) [place] # Seg Neutrophils % Seg Neuts % (Manual) Lymphocytes % (Manual) Seg Neutrophils # Seg Neutrophils # Man Lymphocytes # (Manual) APTT POC ABG pH ABG pH POC ABG pCO2 POC ABG pO2 ABG pO2 ABG HCO3 ABG Base Excess ABG Hemoglobin VBG pH Oxyhemoglobin Sodium Potassium Chloride Carbon Dioxide BUN Creatinine Glucose POC Glucose 329 H 225 H Lactic Acid Calcium AST ALT Alkaline Phosphatase CK-MB (CK-2) CK-MB (CK-2) Rel Index Total Protein Albumin TSH Urine WBC (Auto) Salicylates 01/27/17 01/28/17 01/28/17 Unknown 03:44 03:44 WBC RBC 3.14 L Hgb 8.2 L Hct 24.1 L MCV 77 L MCH 26 L RDW 16.9 H Plt Count 567 H Lymph % (Auto) [place] % (Auto) Eos % (Auto) [place] # Seg Neutrophils % Seg Neuts % (Manual) Lymphocytes % (Manual) Seg Neutrophils # Seg Neutrophils # Man Lymphocytes # (Manual) APTT POC ABG pH ABG pH POC ABG pCO2 POC ABG pO2 ABG pO2 ABG HCO3 ABG Base Excess ABG Hemoglobin VBG pH Oxyhemoglobin Sodium 128 L Potassium 5.4 H Chloride 87.5 L Carbon Dioxide BUN 44 H 42 H Creatinine Glucose 250 H 128 H POC Glucose Lactic Acid Calcium AST ALT Alkaline Phosphatase CK-MB (CK-2) CK-MB (CK-2) Rel Index Total Protein Albumin TSH Urine WBC (Auto) Salicylates 01/28/17 01/28/17 01/28/17 11:43 16:47 17:52 WBC RBC Hgb Hct MCV MCH RDW Plt Count Lymph % (Auto) [place] % (Auto) Eos % (Auto) [place] # Seg Neutrophils % Seg Neuts % (Manual) Lymphocytes % (Manual) Seg Neutrophils # Seg Neutrophils # Man Lymphocytes # (Manual) APTT POC ABG pH ABG pH POC ABG pCO2 POC ABG pO2 ABG pO2 ABG HCO3 ABG Base Excess ABG Hemoglobin VBG pH Oxyhemoglobin Sodium Potassium Chloride Carbon Dioxide BUN Creatinine Glucose POC Glucose 351 H 249 H Lactic Acid Calcium AST ALT Alkaline Phosphatase CK-MB (CK-2) CK-MB (CK-2) Rel Index Total Protein Albumin TSH Urine WBC (Auto) > 182.0 H Salicylates 01/29/17 01/29/17 01/29/17 05:25 05:25 09:32 WBC 13.6 H RBC 3.25 L Hgb 8.3 L Hct 25.1 L MCV 77 L MCH 26 L RDW 16.8 H Plt Count 514 H Lymph % (Auto) [place] % (Auto) Eos % (Auto) [place] # Seg Neutrophils % Seg Neuts % (Manual) Lymphocytes % (Manual) Seg Neutrophils # Seg Neutrophils # Man Lymphocytes # (Manual) APTT POC ABG pH ABG pH POC ABG pCO2 POC ABG pO2 ABG pO2 ABG HCO3 ABG Base Excess ABG Hemoglobin VBG pH Oxyhemoglobin Sodium Potassium Chloride 97.8 L Carbon Dioxide BUN 34 H Creatinine Glucose 222 H POC Glucose Lactic Acid 2.50 H* Calcium AST ALT Alkaline Phosphatase CK-MB (CK-2) CK-MB (CK-2) Rel Index Total Protein Albumin TSH Urine WBC (Auto) Salicylates 01/29/17 01/29/17 01/29/17 11:56 18:11 23:55 WBC RBC Hgb Hct MCV MCH RDW Plt Count Lymph % (Auto) [place] % (Auto) Eos % (Auto) [place] # Seg Neutrophils % Seg Neuts % (Manual) Lymphocytes % (Manual) Seg Neutrophils # Seg Neutrophils # Man Lymphocytes # (Manual) APTT POC ABG pH ABG pH POC ABG pCO2 POC ABG pO2 ABG pO2 ABG HCO3 ABG Base Excess ABG Hemoglobin VBG pH Oxyhemoglobin Sodium Potassium Chloride Carbon Dioxide BUN Creatinine Glucose POC Glucose 261 H 215 H 176 H Lactic Acid Calcium AST ALT Alkaline Phosphatase CK-MB (CK-2) CK-MB (CK-2) Rel Index Total Protein Albumin TSH Urine WBC (Auto) Salicylates 01/30/17 01/30/17 01/30/17 05:31 05:31 05:34 WBC 15.2 H RBC 3.09 L Hgb 7.9 L Hct 23.9 L MCV 77 L MCH 26 L RDW 16.9 H Plt Count 569 H Lymph % (Auto) [place] % (Auto) Eos % (Auto) [place] # Seg Neutrophils % Seg Neuts % (Manual) Lymphocytes % (Manual) Seg Neutrophils # Seg Neutrophils # Man Lymphocytes # (Manual) APTT POC ABG pH ABG pH POC ABG pCO2 POC ABG pO2 ABG pO2 ABG HCO3 ABG Base Excess ABG Hemoglobin VBG pH Oxyhemoglobin Sodium Potassium Chloride Carbon Dioxide BUN 24 H Creatinine Glucose 235 H POC Glucose 243 H Lactic Acid Calcium AST ALT Alkaline Phosphatase CK-MB (CK-2) CK-MB (CK-2) Rel Index Total Protein Albumin TSH Urine WBC (Auto) Salicylates 01/30/17 01/30/17 01/30/17 11:38 17:58 23:29 WBC RBC Hgb Hct MCV MCH RDW Plt Count Lymph % (Auto) [place] % (Auto) Eos % (Auto) [place] # Seg Neutrophils % Seg Neuts % (Manual) Lymphocytes % (Manual) Seg Neutrophils # Seg Neutrophils # Man Lymphocytes # (Manual) APTT POC ABG pH ABG pH POC ABG pCO2 POC ABG pO2 ABG pO2 ABG HCO3 ABG Base Excess ABG Hemoglobin VBG pH Oxyhemoglobin Sodium Potassium Chloride Carbon Dioxide BUN Creatinine Glucose POC Glucose 298 H 208 H 245 H Lactic Acid Calcium AST ALT Alkaline Phosphatase CK-MB (CK-2) CK-MB (CK-2) Rel Index Total Protein Albumin TSH Urine WBC (Auto) Salicylates 01/31/17 01/31/17 01/31/17 04:39 04:39 05:57 WBC 11.4 H RBC 3.22 L Hgb 8.2 L Hct 24.9 L MCV 78 L MCH 25 L RDW 17.2 H Plt Count 576 H Lymph % (Auto) [place] % (Auto) Eos % (Auto) [place] # Seg Neutrophils % Seg Neuts % (Manual) Lymphocytes % (Manual) Seg Neutrophils # Seg Neutrophils # Man Lymphocytes # (Manual) APTT POC ABG pH ABG pH POC ABG pCO2 POC ABG pO2 ABG pO2 ABG HCO3 ABG Base Excess ABG Hemoglobin VBG pH Oxyhemoglobin Sodium Potassium Chloride Carbon Dioxide BUN Creatinine 0.7 L Glucose 223 H POC Glucose 264 H Lactic Acid Calcium AST ALT Alkaline Phosphatase CK-MB (CK-2) CK-MB (CK-2) Rel Index Total Protein Albumin TSH Urine WBC (Auto) Salicylates 01/31/17 01/31/17 01/31/17 12:23 17:41 18:55 WBC RBC Hgb Hct MCV MCH RDW Plt Count Lymph % (Auto) [place] % (Auto) Eos % (Auto) [place] # Seg Neutrophils % Seg Neuts % (Manual) Lymphocytes % (Manual) Seg Neutrophils # Seg Neutrophils # Man Lymphocytes # (Manual) APTT POC ABG pH ABG pH POC ABG pCO2 32.8 L POC ABG pO2 ABG pO2 ABG HCO3 ABG Base Excess ABG Hemoglobin VBG pH Oxyhemoglobin Sodium Potassium Chloride Carbon Dioxide BUN Creatinine Glucose POC Glucose 252 H 208 H Lactic Acid Calcium AST ALT Alkaline Phosphatase CK-MB (CK-2) CK-MB (CK-2) Rel Index Total Protein Albumin TSH Urine WBC (Auto) Salicylates 01/31/17 02/01/17 02/01/17 22:59 03:38 03:38 WBC RBC 2.81 L Hgb 7.4 L Hct 22.1 L MCV 79 L MCH 27 L RDW 17.0 H Plt Count 540 H Lymph % (Auto) [place] % (Auto) Eos % (Auto) [place] # Seg Neutrophils % Seg Neuts % (Manual) Lymphocytes % (Manual) Seg Neutrophils # Seg Neutrophils # Man Lymphocytes # (Manual) APTT POC ABG pH ABG pH POC ABG pCO2 POC ABG pO2 ABG pO2 ABG HCO3 ABG Base Excess ABG Hemoglobin VBG pH Oxyhemoglobin Sodium Potassium Chloride Carbon Dioxide 21 L BUN Creatinine 0.7 L Glucose POC Glucose 40 L Lactic Acid Calcium AST ALT Alkaline Phosphatase CK-MB (CK-2) CK-MB (CK-2) Rel Index Total Protein Albumin TSH Urine WBC (Auto) Salicylates 02/01/17 02/01/17 02/01/17 05:17 12:19 16:44 WBC RBC Hgb Hct MCV MCH RDW Plt Count Lymph % (Auto) [place] % (Auto) Eos % (Auto) [place] # Seg Neutrophils % Seg Neuts % (Manual) Lymphocytes % (Manual) Seg Neutrophils # Seg Neutrophils # Man Lymphocytes # (Manual) APTT POC ABG pH ABG pH POC ABG pCO2 POC ABG pO2 ABG pO2 ABG HCO3 ABG Base Excess ABG Hemoglobin VBG pH Oxyhemoglobin Sodium Potassium Chloride Carbon Dioxide BUN Creatinine Glucose POC Glucose 140 H 213 H 172 H Lactic Acid Calcium AST ALT Alkaline Phosphatase CK-MB (CK-2) CK-MB (CK-2) Rel Index Total Protein Albumin TSH Urine WBC (Auto) Salicylates 02/01/17 02/02/17 02/02/17 23:59 05:14 11:24 WBC RBC Hgb Hct MCV MCH RDW Plt Count Lymph % (Auto) [place] % (Auto) Eos % (Auto) [place] # Seg Neutrophils % Seg Neuts % (Manual) Lymphocytes % (Manual) Seg Neutrophils # Seg Neutrophils # Man Lymphocytes # (Manual) APTT POC ABG pH ABG pH POC ABG pCO2 POC ABG pO2 ABG pO2 ABG HCO3 ABG Base Excess ABG Hemoglobin VBG pH Oxyhemoglobin Sodium Potassium Chloride Carbon Dioxide BUN Creatinine Glucose POC Glucose 181 H 194 H 209 H Lactic Acid Calcium AST ALT Alkaline Phosphatase CK-MB (CK-2) CK-MB (CK-2) Rel Index Total Protein Albumin TSH Urine WBC (Auto) Salicylates 02/02/17 02/02/17 02/02/17 11:46 11:46 17:47 WBC RBC 2.94 L Hgb 7.5 L Hct 23.0 L MCV 78 L MCH 25 L RDW 16.9 H Plt Count 520 H Lymph % (Auto) [place] % (Auto) Eos % (Auto) [place] # Seg Neutrophils % Seg Neuts % (Manual) Lymphocytes % (Manual) Seg Neutrophils # Seg Neutrophils # Man Lymphocytes # (Manual) APTT POC ABG pH ABG pH POC ABG pCO2 POC ABG pO2 ABG pO2 ABG HCO3 ABG Base Excess ABG Hemoglobin VBG pH Oxyhemoglobin Sodium Potassium Chloride Carbon Dioxide BUN Creatinine 0.6 L Glucose 189 H POC Glucose 147 H Lactic Acid Calcium 8.1 L AST ALT Alkaline Phosphatase CK-MB (CK-2) CK-MB (CK-2) Rel Index Total Protein Albumin TSH Urine WBC (Auto) Salicylates 02/02/17 02/03/17 02/03/17 23:32 05:53 11:19 WBC RBC Hgb Hct MCV MCH RDW Plt Count Lymph % (Auto) [place] % (Auto) Eos % (Auto) [place] # Seg Neutrophils % Seg Neuts % (Manual) Lymphocytes % (Manual) Seg Neutrophils # Seg Neutrophils # Man Lymphocytes # (Manual) APTT POC ABG pH ABG pH POC ABG pCO2 POC ABG pO2 ABG pO2 ABG HCO3 ABG Base Excess ABG Hemoglobin VBG pH Oxyhemoglobin Sodium Potassium Chloride Carbon Dioxide BUN Creatinine Glucose POC Glucose 176 H 224 H 228 H Lactic Acid Calcium AST ALT Alkaline Phosphatase CK-MB (CK-2) CK-MB (CK-2) Rel Index Total Protein Albumin TSH Urine WBC (Auto) Salicylates 02/03/17 02/03/17 02/04/17 16:59 23:38 05:45 WBC RBC Hgb Hct MCV MCH RDW Plt Count Lymph % (Auto) [place] % (Auto) Eos % (Auto) [place] # Seg Neutrophils % Seg Neuts % (Manual) Lymphocytes % (Manual) Seg Neutrophils # Seg Neutrophils # Man Lymphocytes # (Manual) APTT POC ABG pH ABG pH POC ABG pCO2 POC ABG pO2 ABG pO2 ABG HCO3 ABG Base Excess ABG Hemoglobin VBG pH Oxyhemoglobin Sodium Potassium Chloride Carbon Dioxide BUN Creatinine Glucose POC Glucose 189 H 191 H 251 H Lactic Acid Calcium AST ALT Alkaline Phosphatase CK-MB (CK-2) CK-MB (CK-2) Rel Index Total Protein Albumin TSH Urine WBC (Auto) Salicylates 02/04/17 02/04/17 02/05/17 11:20 17:20 00:17 WBC RBC Hgb Hct MCV MCH RDW Plt Count Lymph % (Auto) [place] % (Auto) Eos % (Auto) [place] # Seg Neutrophils % Seg Neuts % (Manual) Lymphocytes % (Manual) Seg Neutrophils # Seg Neutrophils # Man Lymphocytes # (Manual) APTT POC ABG pH ABG pH POC ABG pCO2 POC ABG pO2 ABG pO2 ABG HCO3 ABG Base Excess ABG Hemoglobin VBG pH Oxyhemoglobin Sodium Potassium Chloride Carbon Dioxide BUN Creatinine Glucose POC Glucose 243 H 163 H 200 H Lactic Acid Calcium AST ALT Alkaline Phosphatase CK-MB (CK-2) CK-MB (CK-2) Rel Index Total Protein Albumin TSH Urine WBC (Auto) Salicylates 02/05/17 02/05/17 02/05/17 05:38 12:38 16:29 WBC RBC Hgb Hct MCV MCH RDW Plt Count Lymph % (Auto) [place] % (Auto) Eos % (Auto) [place] # Seg Neutrophils % Seg Neuts % (Manual) Lymphocytes % (Manual) Seg Neutrophils # Seg Neutrophils # Man Lymphocytes # (Manual) APTT POC ABG pH ABG pH POC ABG pCO2 POC ABG pO2 ABG pO2 ABG HCO3 ABG Base Excess ABG Hemoglobin VBG pH Oxyhemoglobin Sodium Potassium Chloride Carbon Dioxide BUN Creatinine Glucose POC Glucose 248 H 241 H 257 H Lactic Acid Calcium AST ALT Alkaline Phosphatase CK-MB (CK-2) CK-MB (CK-2) Rel Index Total Protein Albumin TSH Urine WBC (Auto) Salicylates 02/05/17 02/06/17 02/06/17 23:56 05:30 11:50 WBC RBC Hgb Hct MCV MCH RDW Plt Count Lymph % (Auto) [place] % (Auto) Eos % (Auto) [place] # Seg Neutrophils % Seg Neuts % (Manual) Lymphocytes % (Manual) Seg Neutrophils # Seg Neutrophils # Man Lymphocytes # (Manual) APTT POC ABG pH ABG pH POC ABG pCO2 POC ABG pO2 ABG pO2 ABG HCO3 ABG Base Excess ABG Hemoglobin VBG pH Oxyhemoglobin Sodium Potassium Chloride Carbon Dioxide BUN Creatinine Glucose POC Glucose 258 H 120 H 254 H Lactic Acid Calcium AST ALT Alkaline Phosphatase CK-MB (CK-2) CK-MB (CK-2) Rel Index Total Protein Albumin TSH Urine WBC (Auto) Salicylates 02/06/17 02/06/17 02/07/17 17:11 23:50 05:22 WBC RBC Hgb Hct MCV MCH RDW Plt Count Lymph % (Auto) [place] % (Auto) Eos % (Auto) [place] # Seg Neutrophils % Seg Neuts % (Manual) Lymphocytes % (Manual) Seg Neutrophils # Seg Neutrophils # Man Lymphocytes # (Manual) APTT POC ABG pH ABG pH POC ABG pCO2 POC ABG pO2 ABG pO2 ABG HCO3 ABG Base Excess ABG Hemoglobin VBG pH Oxyhemoglobin Sodium Potassium Chloride Carbon Dioxide BUN Creatinine Glucose POC Glucose 149 H 240 H 258 H Lactic Acid Calcium AST ALT Alkaline Phosphatase CK-MB (CK-2) CK-MB (CK-2) Rel Index Total Protein Albumin TSH Urine WBC (Auto) Salicylates 02/07/17 02/07/17 02/07/17 11:15 18:33 23:59 WBC RBC Hgb Hct MCV MCH RDW Plt Count Lymph % (Auto) [place] % (Auto) Eos % (Auto) [place] # Seg Neutrophils % Seg Neuts % (Manual) Lymphocytes % (Manual) Seg Neutrophils # Seg Neutrophils # Man Lymphocytes # (Manual) APTT POC ABG pH ABG pH POC ABG pCO2 POC ABG pO2 ABG pO2 ABG HCO3 ABG Base Excess ABG Hemoglobin VBG pH Oxyhemoglobin Sodium Potassium Chloride Carbon Dioxide BUN Creatinine Glucose POC Glucose 239 H 176 H 186 H Lactic Acid Calcium AST ALT Alkaline Phosphatase CK-MB (CK-2) CK-MB (CK-2) Rel Index Total Protein Albumin TSH Urine WBC (Auto) Salicylates 02/08/17 02/08/17 02/08/17 06:15 11:55 16:55 WBC RBC Hgb Hct MCV MCH RDW Plt Count Lymph % (Auto) [place] % (Auto) Eos % (Auto) [place] # Seg Neutrophils % Seg Neuts % (Manual) Lymphocytes % (Manual) Seg Neutrophils # Seg Neutrophils # Man Lymphocytes # (Manual) APTT POC ABG pH ABG pH POC ABG pCO2 POC ABG pO2 ABG pO2 ABG HCO3 ABG Base Excess ABG Hemoglobin VBG pH Oxyhemoglobin Sodium Potassium Chloride Carbon Dioxide BUN Creatinine Glucose POC Glucose 195 H 129 H 246 H Lactic Acid Calcium AST ALT Alkaline Phosphatase CK-MB (CK-2) CK-MB (CK-2) Rel Index Total Protein Albumin TSH Urine WBC (Auto) Salicylates 1002/09/17 02/09/17 23:51 05:51 07:24 WBC 14.7 H RBC 3.39 L Hgb 8.9 L Hct 26.4 L MCV 78 L MCH 26 L RDW 18.4 H Plt Count 670 H Lymph % (Auto) 11.8 L [place] % (Auto) Eos % (Auto) [place] # Seg Neutrophils % 81.2 H Seg Neuts % (Manual) Lymphocytes % (Manual) Seg Neutrophils # 11.9 H Seg Neutrophils # Man Lymphocytes # (Manual) APTT POC ABG pH ABG pH POC ABG pCO2 POC ABG pO2 ABG pO2 ABG HCO3 ABG Base Excess ABG Hemoglobin VBG pH Oxyhemoglobin Sodium Potassium Chloride Carbon Dioxide BUN Creatinine Glucose POC Glucose 262 H 295 H Lactic Acid Calcium AST ALT Alkaline Phosphatase CK-MB (CK-2) CK-MB (CK-2) Rel Index Total Protein Albumin TSH Urine WBC (Auto) Salicylates 02/09/17 02/09/17 02/09/17 07:24 12:08 18:39 WBC RBC Hgb Hct MCV MCH RDW Plt Count Lymph % (Auto) [place] % (Auto) Eos % (Auto) [place] # Seg Neutrophils % Seg Neuts % (Manual) Lymphocytes % (Manual) Seg Neutrophils # Seg Neutrophils # Man Lymphocytes # (Manual) APTT POC ABG pH ABG pH POC ABG pCO2 POC ABG pO2 ABG pO2 ABG HCO3 ABG Base Excess ABG Hemoglobin VBG pH Oxyhemoglobin Sodium Potassium Chloride 95.5 L Carbon Dioxide BUN 52 H Creatinine Glucose 277 H POC Glucose 236 H 151 H Lactic Acid Calcium AST ALT Alkaline Phosphatase CK-MB (CK-2) CK-MB (CK-2) Rel Index Total Protein Albumin TSH Urine WBC (Auto) Salicylates 02/10/17 02/10/17 02/10/17 00:01 05:44 11:21 WBC RBC Hgb Hct MCV MCH RDW Plt Count Lymph % (Auto) [place] % (Auto) Eos % (Auto) [place] # Seg Neutrophils % Seg Neuts % (Manual) Lymphocytes % (Manual) Seg Neutrophils # Seg Neutrophils # Man Lymphocytes # (Manual) APTT POC ABG pH ABG pH POC ABG pCO2 POC ABG pO2 ABG pO2 ABG HCO3 ABG Base Excess ABG Hemoglobin VBG pH Oxyhemoglobin Sodium Potassium Chloride Carbon Dioxide BUN Creatinine Glucose POC Glucose 210 H 201 H 233 H Lactic Acid Calcium AST ALT Alkaline Phosphatase CK-MB (CK-2) CK-MB (CK-2) Rel Index Total Protein Albumin TSH Urine WBC (Auto) Salicylates 02/10/17 02/10/17 02/11/17 17:29 23:56 05:24 WBC RBC Hgb Hct MCV MCH RDW Plt Count Lymph % (Auto) [place] % (Auto) Eos % (Auto) [place] # Seg Neutrophils % Seg Neuts % (Manual) Lymphocytes % (Manual) Seg Neutrophils # Seg Neutrophils # Man Lymphocytes # (Manual) APTT POC ABG pH ABG pH POC ABG pCO2 POC ABG pO2 ABG pO2 ABG HCO3 ABG Base Excess ABG Hemoglobin VBG pH Oxyhemoglobin Sodium Potassium Chloride Carbon Dioxide BUN Creatinine Glucose POC Glucose 167 H 191 H 135 H Lactic Acid Calcium AST ALT Alkaline Phosphatase CK-MB (CK-2) CK-MB (CK-2) Rel Index Total Protein Albumin TSH Urine WBC (Auto) Salicylates 02/11/17 02/11/17 02/11/17 12:25 17:03 23:59 WBC RBC Hgb Hct MCV MCH RDW Plt Count Lymph % (Auto) [place] % (Auto) Eos % (Auto) [place] # Seg Neutrophils % Seg Neuts % (Manual) Lymphocytes % (Manual) Seg Neutrophils # Seg Neutrophils # Man Lymphocytes # (Manual) APTT POC ABG pH ABG pH POC ABG pCO2 POC ABG pO2 ABG pO2 ABG HCO3 ABG Base Excess ABG Hemoglobin VBG pH Oxyhemoglobin Sodium Potassium Chloride Carbon Dioxide BUN Creatinine Glucose POC Glucose 275 H 172 H 215 H Lactic Acid Calcium AST ALT Alkaline Phosphatase CK-MB (CK-2) CK-MB (CK-2) Rel Index Total Protein Albumin TSH Urine WBC (Auto) Salicylates 02/12/17 02/12/17 02/12/17 05:39 11:33 17:55 WBC RBC Hgb Hct MCV MCH RDW Plt Count Lymph % (Auto) [place] % (Auto) Eos % (Auto) [place] # Seg Neutrophils % Seg Neuts % (Manual) Lymphocytes % (Manual) Seg Neutrophils # Seg Neutrophils # Man Lymphocytes # (Manual) APTT POC ABG pH ABG pH POC ABG pCO2 POC ABG pO2 ABG pO2 ABG HCO3 ABG Base Excess ABG Hemoglobin VBG pH Oxyhemoglobin Sodium Potassium Chloride Carbon Dioxide BUN Creatinine Glucose POC Glucose 261 H 217 H 172 H Lactic Acid Calcium AST ALT Alkaline Phosphatase CK-MB (CK-2) CK-MB (CK-2) Rel Index Total Protein Albumin TSH Urine WBC (Auto) Salicylates 02/13/17 02/13/17 02/13/17 00:25 06:46 11:26 WBC RBC Hgb Hct MCV MCH RDW Plt Count Lymph % (Auto) [place] % (Auto) Eos % (Auto) [place] # Seg Neutrophils % Seg Neuts % (Manual) Lymphocytes % (Manual) Seg Neutrophils # Seg Neutrophils # Man Lymphocytes # (Manual) APTT POC ABG pH ABG pH POC ABG pCO2 POC ABG pO2 ABG pO2 ABG HCO3 ABG Base Excess ABG Hemoglobin VBG pH Oxyhemoglobin Sodium Potassium Chloride Carbon Dioxide BUN Creatinine Glucose POC Glucose 207 H 219 H 231 H Lactic Acid Calcium AST ALT Alkaline Phosphatase CK-MB (CK-2) CK-MB (CK-2) Rel Index Total Protein Albumin TSH Urine WBC (Auto) Salicylates 02/13/17 02/13/17 02/14/17 17:12 23:44 05:44 WBC RBC Hgb Hct MCV MCH RDW Plt Count Lymph % (Auto) [place] % (Auto) Eos % (Auto) [place] # Seg Neutrophils % Seg Neuts % (Manual) Lymphocytes % (Manual) Seg Neutrophils # Seg Neutrophils # Man Lymphocytes # (Manual) APTT POC ABG pH ABG pH POC ABG pCO2 POC ABG pO2 ABG pO2 ABG HCO3 ABG Base Excess ABG Hemoglobin VBG pH Oxyhemoglobin Sodium Potassium Chloride Carbon Dioxide BUN Creatinine Glucose POC Glucose 190 H 256 H 184 H Lactic Acid Calcium AST ALT Alkaline Phosphatase CK-MB (CK-2) CK-MB (CK-2) Rel Index Total Protein Albumin TSH Urine WBC (Auto) Salicylates 02/14/17 02/14/17 02/14/17 12:21 17:57 23:18 WBC RBC Hgb Hct MCV MCH RDW Plt Count Lymph % (Auto) [place] % (Auto) Eos % (Auto) [place] # Seg Neutrophils % Seg Neuts % (Manual) Lymphocytes % (Manual) Seg Neutrophils # Seg Neutrophils # Man Lymphocytes # (Manual) APTT POC ABG pH ABG pH POC ABG pCO2 POC ABG pO2 ABG pO2 ABG HCO3 ABG Base Excess ABG Hemoglobin VBG pH Oxyhemoglobin Sodium Potassium Chloride Carbon Dioxide BUN Creatinine Glucose POC Glucose 233 H 155 H 165 H Lactic Acid Calcium AST ALT Alkaline Phosphatase CK-MB (CK-2) CK-MB (CK-2) Rel Index Total Protein Albumin TSH Urine WBC (Auto) Salicylates 02/15/17 02/15/17 02/15/17 05:33 11:45 17:20 WBC RBC Hgb Hct MCV MCH RDW Plt Count Lymph % (Auto) [place] % (Auto) Eos % (Auto) [place] # Seg Neutrophils % Seg Neuts % (Manual) Lymphocytes % (Manual) Seg Neutrophils # Seg Neutrophils # Man Lymphocytes # (Manual) APTT POC ABG pH ABG pH POC ABG pCO2 POC ABG pO2 ABG pO2 ABG HCO3 ABG Base Excess ABG Hemoglobin VBG pH Oxyhemoglobin Sodium Potassium Chloride Carbon Dioxide BUN Creatinine Glucose POC Glucose 239 H 130 H 189 H Lactic Acid Calcium AST ALT Alkaline Phosphatase CK-MB (CK-2) CK-MB (CK-2) Rel Index Total Protein Albumin TSH Urine WBC (Auto) Salicylates 02/16/17 02/16/17 02/16/17 00:14 05:09 12:31 WBC RBC Hgb Hct MCV MCH RDW Plt Count Lymph % (Auto) [place] % (Auto) Eos % (Auto) [place] # Seg Neutrophils % Seg Neuts % (Manual) Lymphocytes % (Manual) Seg Neutrophils # Seg Neutrophils # Man Lymphocytes # (Manual) APTT POC ABG pH ABG pH POC ABG pCO2 POC ABG pO2 ABG pO2 ABG HCO3 ABG Base Excess ABG Hemoglobin VBG pH Oxyhemoglobin Sodium Potassium Chloride Carbon Dioxide BUN Creatinine Glucose POC Glucose 197 H 226 H 178 H Lactic Acid Calcium AST ALT Alkaline Phosphatase CK-MB (CK-2) CK-MB (CK-2) Rel Index Total Protein Albumin TSH Urine WBC (Auto) Salicylates 02/16/17 02/16/17 02/17/17 16:35 23:49 05:37 WBC RBC Hgb Hct MCV MCH RDW Plt Count Lymph % (Auto) [place] % (Auto) Eos % (Auto) [place] # Seg Neutrophils % Seg Neuts % (Manual) Lymphocytes % (Manual) Seg Neutrophils # Seg Neutrophils # Man Lymphocytes # (Manual) APTT POC ABG pH ABG pH POC ABG pCO2 POC ABG pO2 ABG pO2 ABG HCO3 ABG Base Excess ABG Hemoglobin VBG pH Oxyhemoglobin Sodium Potassium Chloride Carbon Dioxide BUN Creatinine Glucose POC Glucose 174 H 62 L 153 H Lactic Acid Calcium AST ALT Alkaline Phosphatase CK-MB (CK-2) CK-MB (CK-2) Rel Index Total Protein Albumin TSH Urine WBC (Auto) Salicylates 02/17/17 02/17/17 02/17/17 11:39 17:02 22:24 WBC RBC Hgb Hct MCV MCH RDW Plt Count Lymph % (Auto) [place] % (Auto) Eos % (Auto) [place] # Seg Neutrophils % Seg Neuts % (Manual) Lymphocytes % (Manual) Seg Neutrophils # Seg Neutrophils # Man Lymphocytes # (Manual) APTT POC ABG pH ABG pH POC ABG pCO2 POC ABG pO2 ABG pO2 ABG HCO3 ABG Base Excess ABG Hemoglobin VBG pH Oxyhemoglobin Sodium Potassium Chloride Carbon Dioxide BUN Creatinine Glucose POC Glucose 231 H 112 H 116 H Lactic Acid Calcium AST ALT Alkaline Phosphatase CK-MB (CK-2) CK-MB (CK-2) Rel Index Total Protein Albumin TSH Urine WBC (Auto) Salicylates 02/18/17 02/19/17 02/19/17 15:34 05:09 07:57 WBC RBC Hgb Hct MCV MCH RDW Plt Count Lymph % (Auto) [place] % (Auto) Eos % (Auto) [place] # Seg Neutrophils % Seg Neuts % (Manual) Lymphocytes % (Manual) Seg Neutrophils # Seg Neutrophils # Man Lymphocytes # (Manual) APTT POC ABG pH ABG pH POC ABG pCO2 POC ABG pO2 ABG pO2 ABG HCO3 ABG Base Excess ABG Hemoglobin VBG pH Oxyhemoglobin Sodium Potassium Chloride Carbon Dioxide BUN Creatinine Glucose POC Glucose 215 H 218 H 283 H Lactic Acid Calcium AST ALT Alkaline Phosphatase CK-MB (CK-2) CK-MB (CK-2) Rel Index Total Protein Albumin TSH Urine WBC (Auto) Salicylates 02/19/17 02/19/17 02/20/17 14:49 22:10 05:10 WBC RBC Hgb Hct MCV MCH RDW Plt Count Lymph % (Auto) [place] % (Auto) Eos % (Auto) [place] # Seg Neutrophils % Seg Neuts % (Manual) Lymphocytes % (Manual) Seg Neutrophils # Seg Neutrophils # Man Lymphocytes # (Manual) APTT POC ABG pH ABG pH POC ABG pCO2 POC ABG pO2 ABG pO2 ABG HCO3 ABG Base Excess ABG Hemoglobin VBG pH Oxyhemoglobin Sodium Potassium Chloride Carbon Dioxide BUN Creatinine Glucose POC Glucose 290 H 169 H 209 H Lactic Acid Calcium AST ALT Alkaline Phosphatase CK-MB (CK-2) CK-MB (CK-2) Rel Index Total Protein Albumin TSH Urine WBC (Auto) Salicylates 02/20/17 02/20/17 02/21/17 15:05 21:52 02:00 WBC RBC Hgb Hct MCV MCH RDW Plt Count Lymph % (Auto) [place] % (Auto) Eos % (Auto) [place] # Seg Neutrophils % Seg Neuts % (Manual) Lymphocytes % (Manual) Seg Neutrophils # Seg Neutrophils # Man Lymphocytes # (Manual) APTT POC ABG pH ABG pH POC ABG pCO2 POC ABG pO2 ABG pO2 ABG HCO3 ABG Base Excess ABG Hemoglobin VBG pH Oxyhemoglobin Sodium Potassium Chloride Carbon Dioxide BUN Creatinine Glucose POC Glucose 172 H 209 H 216 H Lactic Acid Calcium AST ALT Alkaline Phosphatase CK-MB (CK-2) CK-MB (CK-2) Rel Index Total Protein Albumin TSH Urine WBC (Auto) Salicylates 02/21/17 02/21/17 02/21/17 04:54 14:43 17:47 WBC RBC Hgb Hct MCV MCH RDW Plt Count Lymph % (Auto) [place] % (Auto) Eos % (Auto) [place] # Seg Neutrophils % Seg Neuts % (Manual) Lymphocytes % (Manual) Seg Neutrophils # Seg Neutrophils # Man Lymphocytes # (Manual) APTT POC ABG pH ABG pH POC ABG pCO2 POC ABG pO2 ABG pO2 ABG HCO3 ABG Base Excess ABG Hemoglobin VBG pH Oxyhemoglobin Sodium Potassium Chloride Carbon Dioxide BUN Creatinine Glucose POC Glucose 227 H 290 H 220 H Lactic Acid Calcium AST ALT Alkaline Phosphatase CK-MB (CK-2) CK-MB (CK-2) Rel Index Total Protein Albumin TSH Urine WBC (Auto) Salicylates 02/21/17 02/22/17 02/22/17 22:02 04:52 15:25 WBC RBC Hgb Hct MCV MCH RDW Plt Count Lymph % (Auto) [place] % (Auto) Eos % (Auto) [place] # Seg Neutrophils % Seg Neuts % (Manual) Lymphocytes % (Manual) Seg Neutrophils # Seg Neutrophils # Man Lymphocytes # (Manual) APTT POC ABG pH ABG pH POC ABG pCO2 POC ABG pO2 ABG pO2 ABG HCO3 ABG Base Excess ABG Hemoglobin VBG pH Oxyhemoglobin Sodium Potassium Chloride Carbon Dioxide BUN Creatinine Glucose POC Glucose 246 H 212 H 236 H Lactic Acid Calcium AST ALT Alkaline Phosphatase CK-MB (CK-2) CK-MB (CK-2) Rel Index Total Protein Albumin TSH Urine WBC (Auto) Salicylates 02/22/17 02/23/17 02/23/17 21:33 06:04 10:00 WBC RBC Hgb Hct MCV MCH RDW Plt Count Lymph % (Auto) [place] % (Auto) Eos % (Auto) [place] # Seg Neutrophils % Seg Neuts % (Manual) Lymphocytes % (Manual) Seg Neutrophils # Seg Neutrophils # Man Lymphocytes # (Manual) APTT POC ABG pH ABG pH POC ABG pCO2 POC ABG pO2 ABG pO2 ABG HCO3 ABG Base Excess ABG Hemoglobin VBG pH Oxyhemoglobin Sodium Potassium Chloride Carbon Dioxide BUN Creatinine Glucose POC Glucose 255 H 208 H 174 H Lactic Acid Calcium AST ALT Alkaline Phosphatase CK-MB (CK-2) CK-MB (CK-2) Rel Index Total Protein Albumin TSH Urine WBC (Auto) Salicylates 02/23/17 02/23/17 02/23/17 12:52 17:15 21:51 WBC RBC Hgb Hct MCV MCH RDW Plt Count Lymph % (Auto) [place] % (Auto) Eos % (Auto) [place] # Seg Neutrophils % Seg Neuts % (Manual) Lymphocytes % (Manual) Seg Neutrophils # Seg Neutrophils # Man Lymphocytes # (Manual) APTT POC ABG pH ABG pH POC ABG pCO2 POC ABG pO2 ABG pO2 ABG HCO3 ABG Base Excess ABG Hemoglobin VBG pH Oxyhemoglobin Sodium Potassium Chloride Carbon Dioxide BUN Creatinine Glucose POC Glucose 203 H 269 H 205 H Lactic Acid Calcium AST ALT Alkaline Phosphatase CK-MB (CK-2) CK-MB (CK-2) Rel Index Total Protein Albumin TSH Urine WBC (Auto) Salicylates 02/24/17 02/24/17 02/24/17 10:23 17:45 21:24 WBC RBC Hgb Hct MCV MCH RDW Plt Count Lymph % (Auto) [place] % (Auto) Eos % (Auto) [place] # Seg Neutrophils % Seg Neuts % (Manual) Lymphocytes % (Manual) Seg Neutrophils # Seg Neutrophils # Man Lymphocytes # (Manual) APTT POC ABG pH ABG pH POC ABG pCO2 POC ABG pO2 ABG pO2 ABG HCO3 ABG Base Excess ABG Hemoglobin VBG pH Oxyhemoglobin Sodium Potassium Chloride Carbon Dioxide BUN Creatinine Glucose POC Glucose 280 H 239 H 254 H Lactic Acid Calcium AST ALT Alkaline Phosphatase CK-MB (CK-2) CK-MB (CK-2) Rel Index Total Protein Albumin TSH Urine WBC (Auto) Salicylates 02/25/17 02/25/17 02/25/17 02:12 05:17 14:32 WBC RBC Hgb Hct MCV MCH RDW Plt Count Lymph % (Auto) [place] % (Auto) Eos % (Auto) [place] # Seg Neutrophils % Seg Neuts % (Manual) Lymphocytes % (Manual) Seg Neutrophils # Seg Neutrophils # Man Lymphocytes # (Manual) APTT POC ABG pH ABG pH POC ABG pCO2 POC ABG pO2 ABG pO2 ABG HCO3 ABG Base Excess ABG Hemoglobin VBG pH Oxyhemoglobin Sodium Potassium Chloride Carbon Dioxide BUN Creatinine Glucose POC Glucose 296 H 332 H 353 H Lactic Acid Calcium AST ALT Alkaline Phosphatase CK-MB (CK-2) CK-MB (CK-2) Rel Index Total Protein Albumin TSH Urine WBC (Auto) Salicylates 02/25/17 02/26/17 02/26/17 22:14 00:37 05:52 WBC RBC Hgb Hct MCV MCH RDW Plt Count Lymph % (Auto) [place] % (Auto) Eos % (Auto) [place] # Seg Neutrophils % Seg Neuts % (Manual) Lymphocytes % (Manual) Seg Neutrophils # Seg Neutrophils # Man Lymphocytes # (Manual) APTT POC ABG pH ABG pH POC ABG pCO2 POC ABG pO2 ABG pO2 ABG HCO3 ABG Base Excess ABG Hemoglobin VBG pH Oxyhemoglobin Sodium Potassium Chloride Carbon Dioxide BUN Creatinine Glucose POC Glucose 201 H 233 H 269 H Lactic Acid Calcium AST ALT Alkaline Phosphatase CK-MB (CK-2) CK-MB (CK-2) Rel Index Total Protein Albumin TSH Urine WBC (Auto) Salicylates 02/26/17 02/26/17 02/26/17 11:48 13:49 21:26 WBC RBC Hgb Hct MCV MCH RDW Plt Count Lymph % (Auto) [place] % (Auto) Eos % (Auto) [place] # Seg Neutrophils % Seg Neuts % (Manual) Lymphocytes % (Manual) Seg Neutrophils # Seg Neutrophils # Man Lymphocytes # (Manual) APTT POC ABG pH ABG pH POC ABG pCO2 POC ABG pO2 ABG pO2 ABG HCO3 ABG Base Excess ABG Hemoglobin VBG pH Oxyhemoglobin Sodium Potassium Chloride Carbon Dioxide BUN Creatinine Glucose POC Glucose 333 H 322 H 244 H Lactic Acid Calcium AST ALT Alkaline Phosphatase CK-MB (CK-2) CK-MB (CK-2) Rel Index Total Protein Albumin TSH Urine WBC (Auto) Salicylates 02/27/17 02/27/17 02/27/17 05:27 13:51 21:48 WBC RBC Hgb Hct MCV MCH RDW Plt Count Lymph % (Auto) [place] % (Auto) Eos % (Auto) [place] # Seg Neutrophils % Seg Neuts % (Manual) Lymphocytes % (Manual) Seg Neutrophils # Seg Neutrophils # Man Lymphocytes # (Manual) APTT POC ABG pH ABG pH POC ABG pCO2 POC ABG pO2 ABG pO2 ABG HCO3 ABG Base Excess ABG Hemoglobin VBG pH Oxyhemoglobin Sodium Potassium Chloride Carbon Dioxide BUN Creatinine Glucose POC Glucose 217 H 239 H 254 H Lactic Acid Calcium AST ALT Alkaline Phosphatase CK-MB (CK-2) CK-MB (CK-2) Rel Index Total Protein Albumin TSH Urine WBC (Auto) Salicylates 02/28/17 02/28/17 02/28/17 05:38 11:00 19:44 WBC RBC Hgb Hct MCV MCH RDW Plt Count Lymph % (Auto) [place] % (Auto) Eos % (Auto) [place] # Seg Neutrophils % Seg Neuts % (Manual) Lymphocytes % (Manual) Seg Neutrophils # Seg Neutrophils # Man Lymphocytes # (Manual) APTT POC ABG pH ABG pH POC ABG pCO2 POC ABG pO2 ABG pO2 ABG HCO3 ABG Base Excess ABG Hemoglobin VBG pH Oxyhemoglobin Sodium Potassium Chloride Carbon Dioxide BUN Creatinine Glucose POC Glucose 325 H 203 H 116 H Lactic Acid Calcium AST ALT Alkaline Phosphatase CK-MB (CK-2) CK-MB (CK-2) Rel Index Total Protein Albumin TSH Urine WBC (Auto) Salicylates 03/01/17 03/01/17 03/01/17 00:08 05:31 12:17 WBC RBC Hgb Hct MCV MCH RDW Plt Count Lymph % (Auto) [place] % (Auto) Eos % (Auto) [place] # Seg Neutrophils % Seg Neuts % (Manual) Lymphocytes % (Manual) Seg Neutrophils # Seg Neutrophils # Man Lymphocytes # (Manual) APTT POC ABG pH ABG pH POC ABG pCO2 POC ABG pO2 ABG pO2 ABG HCO3 ABG Base Excess ABG Hemoglobin VBG pH Oxyhemoglobin Sodium Potassium Chloride Carbon Dioxide BUN Creatinine Glucose POC Glucose 202 H 183 H 184 H Lactic Acid Calcium AST ALT Alkaline Phosphatase CK-MB (CK-2) CK-MB (CK-2) Rel Index Total Protein Albumin TSH Urine WBC (Auto) Salicylates 03/02/17 03/02/17 03/02/17 00:12 05:58 18:22 WBC RBC Hgb Hct MCV MCH RDW Plt Count Lymph % (Auto) [place] % (Auto) Eos % (Auto) [place] # Seg Neutrophils % Seg Neuts % (Manual) Lymphocytes % (Manual) Seg Neutrophils # Seg Neutrophils # Man Lymphocytes # (Manual) APTT POC ABG pH ABG pH POC ABG pCO2 POC ABG pO2 ABG pO2 ABG HCO3 ABG Base Excess ABG Hemoglobin VBG pH Oxyhemoglobin Sodium Potassium Chloride Carbon Dioxide BUN Creatinine Glucose POC Glucose 117 H 176 H 156 H Lactic Acid Calcium AST ALT Alkaline Phosphatase CK-MB (CK-2) CK-MB (CK-2) Rel Index Total Protein Albumin TSH Urine WBC (Auto) Salicylates 03/02/17 03/03/17 03/03/17 23:51 05:44 11:32 WBC RBC Hgb Hct MCV MCH RDW Plt Count Lymph % (Auto) [place] % (Auto) Eos % (Auto) [place] # Seg Neutrophils % Seg Neuts % (Manual) Lymphocytes % (Manual) Seg Neutrophils # Seg Neutrophils # Man Lymphocytes # (Manual) APTT POC ABG pH ABG pH POC ABG pCO2 POC ABG pO2 ABG pO2 ABG HCO3 ABG Base Excess ABG Hemoglobin VBG pH Oxyhemoglobin Sodium Potassium Chloride Carbon Dioxide BUN Creatinine Glucose POC Glucose 211 H 117 H 133 H Lactic Acid Calcium AST ALT Alkaline Phosphatase CK-MB (CK-2) CK-MB (CK-2) Rel Index Total Protein Albumin TSH Urine WBC (Auto) Salicylates 03/03/17 03/03/17 03/04/17 17:43 23:17 05:30 WBC RBC Hgb Hct MCV MCH RDW Plt Count Lymph % (Auto) [place] % (Auto) Eos % (Auto) [place] # Seg Neutrophils % Seg Neuts % (Manual) Lymphocytes % (Manual) Seg Neutrophils # Seg Neutrophils # Man Lymphocytes # (Manual) APTT POC ABG pH ABG pH POC ABG pCO2 POC ABG pO2 ABG pO2 ABG HCO3 ABG Base Excess ABG Hemoglobin VBG pH Oxyhemoglobin Sodium Potassium Chloride Carbon Dioxide BUN Creatinine Glucose POC Glucose 206 H 170 H 126 H Lactic Acid Calcium AST ALT Alkaline Phosphatase CK-MB (CK-2) CK-MB (CK-2) Rel Index Total Protein Albumin TSH Urine WBC (Auto) Salicylates 03/04/17 03/04/17 03/05/17 12:17 17:27 05:20 WBC RBC Hgb Hct MCV MCH RDW Plt Count Lymph % (Auto) [place] % (Auto) Eos % (Auto) [place] # Seg Neutrophils % Seg Neuts % (Manual) Lymphocytes % (Manual) Seg Neutrophils # Seg Neutrophils # Man Lymphocytes # (Manual) APTT POC ABG pH ABG pH POC ABG pCO2 POC ABG pO2 ABG pO2 ABG HCO3 ABG Base Excess ABG Hemoglobin VBG pH Oxyhemoglobin Sodium Potassium Chloride Carbon Dioxide BUN Creatinine Glucose POC Glucose 135 H 121 H 185 H Lactic Acid Calcium AST ALT Alkaline Phosphatase CK-MB (CK-2) CK-MB (CK-2) Rel Index Total Protein Albumin TSH Urine WBC (Auto) Salicylates 03/05/17 03/06/17 03/06/17 11:50 11:52 17:34 WBC RBC Hgb Hct MCV MCH RDW Plt Count Lymph % (Auto) [place] % (Auto) Eos % (Auto) [place] # Seg Neutrophils % Seg Neuts % (Manual) Lymphocytes % (Manual) Seg Neutrophils # Seg Neutrophils # Man Lymphocytes # (Manual) APTT POC ABG pH ABG pH POC ABG pCO2 POC ABG pO2 ABG pO2 ABG HCO3 ABG Base Excess ABG Hemoglobin VBG pH Oxyhemoglobin Sodium Potassium Chloride Carbon Dioxide BUN Creatinine Glucose POC Glucose 116 H 133 H 181 H Lactic Acid Calcium AST ALT Alkaline Phosphatase CK-MB (CK-2) CK-MB (CK-2) Rel Index Total Protein Albumin TSH Urine WBC (Auto) Salicylates 03/07/17 03/07/17 03/07/17 05:21 11:36 17:49 WBC RBC Hgb Hct MCV MCH RDW Plt Count Lymph % (Auto) [place] % (Auto) Eos % (Auto) [place] # Seg Neutrophils % Seg Neuts % (Manual) Lymphocytes % (Manual) Seg Neutrophils # Seg Neutrophils # Man Lymphocytes # (Manual) APTT POC ABG pH ABG pH POC ABG pCO2 POC ABG pO2 ABG pO2 ABG HCO3 ABG Base Excess ABG Hemoglobin VBG pH Oxyhemoglobin Sodium Potassium Chloride Carbon Dioxide BUN Creatinine Glucose POC Glucose 159 H 137 H 158 H Lactic Acid Calcium AST ALT Alkaline Phosphatase CK-MB (CK-2) CK-MB (CK-2) Rel Index Total Protein Albumin TSH Urine WBC (Auto) Salicylates 03/08/17 03/08/17 03/08/17 05:51 13:58 23:50 WBC RBC Hgb Hct MCV MCH RDW Plt Count Lymph % (Auto) [place] % (Auto) Eos % (Auto) [place] # Seg Neutrophils % Seg Neuts % (Manual) Lymphocytes % (Manual) Seg Neutrophils # Seg Neutrophils # Man Lymphocytes # (Manual) APTT POC ABG pH ABG pH POC ABG pCO2 POC ABG pO2 ABG pO2 ABG HCO3 ABG Base Excess ABG Hemoglobin VBG pH Oxyhemoglobin Sodium Potassium Chloride Carbon Dioxide BUN Creatinine Glucose POC Glucose 122 H 182 H 114 H Lactic Acid Calcium AST ALT Alkaline Phosphatase CK-MB (CK-2) CK-MB (CK-2) Rel Index Total Protein Albumin TSH Urine WBC (Auto) Salicylates 03/09/17 03/09/17 03/09/17 05:21 05:51 05:51 WBC RBC 3.61 L Hgb 9.5 L Hct 28.3 L MCV 79 L MCH 26 L RDW 17.8 H Plt Count Lymph % (Auto) [place] % (Auto) Eos % (Auto) [place] # Seg Neutrophils % Seg Neuts % (Manual) Lymphocytes % (Manual) Seg Neutrophils # Seg Neutrophils # Man Lymphocytes # (Manual) APTT POC ABG pH ABG pH POC ABG pCO2 POC ABG pO2 ABG pO2 ABG HCO3 ABG Base Excess ABG Hemoglobin VBG pH Oxyhemoglobin Sodium 134 L Potassium Chloride 95.5 L Carbon Dioxide BUN 33 H Creatinine 0.5 L Glucose 143 H POC Glucose 153 H Lactic Acid Calcium AST ALT Alkaline Phosphatase CK-MB (CK-2) CK-MB (CK-2) Rel Index Total Protein Albumin TSH Urine WBC (Auto) Salicylates 03/09/17 03/09/17 03/09/17 12:10 18:13 21:00 WBC RBC Hgb Hct MCV MCH RDW Plt Count Lymph % (Auto) [place] % (Auto) Eos % (Auto) [place] # Seg Neutrophils % Seg Neuts % (Manual) Lymphocytes % (Manual) Seg Neutrophils # Seg Neutrophils # Man Lymphocytes # (Manual) APTT POC ABG pH ABG pH POC ABG pCO2 POC ABG pO2 ABG pO2 ABG HCO3 ABG Base Excess ABG Hemoglobin VBG pH Oxyhemoglobin Sodium Potassium Chloride Carbon Dioxide BUN Creatinine Glucose POC Glucose 203 H 221 H 198 H Lactic Acid Calcium AST ALT Alkaline Phosphatase CK-MB (CK-2) CK-MB (CK-2) Rel Index Total Protein Albumin TSH Urine WBC (Auto) Salicylates 03/09/17 03/10/17 03/10/17 23:58 05:09 05:09 WBC RBC Hgb 10.3 L Hct 30.5 L MCV 78 L MCH 26 L RDW 17.9 H Plt Count Lymph % (Auto) [place] % (Auto) 10.0 H Eos % (Auto) 6.0 H [place] # Seg Neutrophils % Seg Neuts % (Manual) Lymphocytes % (Manual) Seg Neutrophils # Seg Neutrophils # Man Lymphocytes # (Manual) APTT POC ABG pH ABG pH POC ABG pCO2 POC ABG pO2 ABG pO2 ABG HCO3 ABG Base Excess ABG Hemoglobin VBG pH Oxyhemoglobin Sodium 132 L Potassium Chloride 92.2 L Carbon Dioxide BUN 33 H Creatinine 0.5 L Glucose 50 L POC Glucose 167 H Lactic Acid Calcium AST ALT Alkaline Phosphatase CK-MB (CK-2) CK-MB (CK-2) Rel Index Total Protein Albumin TSH Urine WBC (Auto) Salicylates 03/10/17 03/10/17 03/10/17 05:33 05:34 11:48 WBC RBC Hgb Hct MCV MCH RDW Plt Count Lymph % (Auto) [place] % (Auto) Eos % (Auto) [place] # Seg Neutrophils % Seg Neuts % (Manual) Lymphocytes % (Manual) Seg Neutrophils # Seg Neutrophils # Man Lymphocytes # (Manual) APTT POC ABG pH ABG pH POC ABG pCO2 POC ABG pO2 ABG pO2 ABG HCO3 ABG Base Excess ABG Hemoglobin VBG pH Oxyhemoglobin Sodium Potassium Chloride Carbon Dioxide BUN Creatinine Glucose POC Glucose 52 L 53 L 148 H Lactic Acid Calcium AST ALT Alkaline Phosphatase CK-MB (CK-2) CK-MB (CK-2) Rel Index Total Protein Albumin TSH Urine WBC (Auto) Salicylates 03/10/17 03/10/17 03/11/17 17:53 23:47 05:18 WBC RBC Hgb Hct MCV MCH RDW Plt Count Lymph % (Auto) [place] % (Auto) Eos % (Auto) [place] # Seg Neutrophils % Seg Neuts % (Manual) Lymphocytes % (Manual) Seg Neutrophils # Seg Neutrophils # Man Lymphocytes # (Manual) APTT POC ABG pH ABG pH POC ABG pCO2 POC ABG pO2 ABG pO2 ABG HCO3 ABG Base Excess ABG Hemoglobin VBG pH Oxyhemoglobin Sodium Potassium Chloride Carbon Dioxide BUN Creatinine Glucose POC Glucose 189 H 398 H 126 H Lactic Acid Calcium AST ALT Alkaline Phosphatase CK-MB (CK-2) CK-MB (CK-2) Rel Index Total Protein Albumin TSH Urine WBC (Auto) Salicylates 03/11/17 03/11/17 03/11/17 11:53 17:30 23:10 WBC RBC Hgb Hct MCV MCH RDW Plt Count Lymph % (Auto) [place] % (Auto) Eos % (Auto) [place] # Seg Neutrophils % Seg Neuts % (Manual) Lymphocytes % (Manual) Seg Neutrophils # Seg Neutrophils # Man Lymphocytes # (Manual) APTT POC ABG pH ABG pH POC ABG pCO2 POC ABG pO2 ABG pO2 ABG HCO3 ABG Base Excess ABG Hemoglobin VBG pH Oxyhemoglobin Sodium Potassium Chloride Carbon Dioxide BUN Creatinine Glucose POC Glucose 198 H 142 H 244 H Lactic Acid Calcium AST ALT Alkaline Phosphatase CK-MB (CK-2) CK-MB (CK-2) Rel Index Total Protein Albumin TSH Urine WBC (Auto) Salicylates 03/12/17 03/12/17 03/12/17 04:36 11:49 17:23 WBC RBC Hgb Hct MCV MCH RDW Plt Count Lymph % (Auto) [place] % (Auto) Eos % (Auto) [place] # Seg Neutrophils % Seg Neuts % (Manual) Lymphocytes % (Manual) Seg Neutrophils # Seg Neutrophils # Man Lymphocytes # (Manual) APTT POC ABG pH ABG pH POC ABG pCO2 POC ABG pO2 ABG pO2 ABG HCO3 ABG Base Excess ABG Hemoglobin VBG pH Oxyhemoglobin Sodium Potassium Chloride Carbon Dioxide BUN Creatinine Glucose POC Glucose 205 H 197 H 209 H Lactic Acid Calcium AST ALT Alkaline Phosphatase CK-MB (CK-2) CK-MB (CK-2) Rel Index Total Protein Albumin TSH Urine WBC (Auto) Salicylates 03/12/17 03/13/17 03/13/17 23:51 05:32 11:43 WBC RBC Hgb Hct MCV MCH RDW Plt Count Lymph % (Auto) [place] % (Auto) Eos % (Auto) [place] # Seg Neutrophils % Seg Neuts % (Manual) Lymphocytes % (Manual) Seg Neutrophils # Seg Neutrophils # Man Lymphocytes # (Manual) APTT POC ABG pH ABG pH POC ABG pCO2 POC ABG pO2 ABG pO2 ABG HCO3 ABG Base Excess ABG Hemoglobin VBG pH Oxyhemoglobin Sodium Potassium Chloride Carbon Dioxide BUN Creatinine Glucose POC Glucose 210 H 154 H 164 H Lactic Acid Calcium AST ALT Alkaline Phosphatase CK-MB (CK-2) CK-MB (CK-2) Rel Index Total Protein Albumin TSH Urine WBC (Auto) Salicylates 03/13/17 03/13/17 03/14/17 17:11 23:26 05:42 WBC RBC Hgb Hct MCV MCH RDW Plt Count Lymph % (Auto) [place] % (Auto) Eos % (Auto) [place] # Seg Neutrophils % Seg Neuts % (Manual) Lymphocytes % (Manual) Seg Neutrophils # Seg Neutrophils # Man Lymphocytes # (Manual) APTT POC ABG pH ABG pH POC ABG pCO2 POC ABG pO2 ABG pO2 ABG HCO3 ABG Base Excess ABG Hemoglobin VBG pH Oxyhemoglobin Sodium Potassium Chloride Carbon Dioxide BUN Creatinine Glucose POC Glucose 195 H 240 H 230 H Lactic Acid Calcium AST ALT Alkaline Phosphatase CK-MB (CK-2) CK-MB (CK-2) Rel Index Total Protein Albumin TSH Urine WBC (Auto) Salicylates 03/14/17 03/14/17 03/14/17 14:04 17:34 23:42 WBC RBC Hgb Hct MCV MCH RDW Plt Count Lymph % (Auto) [place] % (Auto) Eos % (Auto) [place] # Seg Neutrophils % Seg Neuts % (Manual) Lymphocytes % (Manual) Seg Neutrophils # Seg Neutrophils # Man Lymphocytes # (Manual) APTT POC ABG pH ABG pH POC ABG pCO2 POC ABG pO2 ABG pO2 ABG HCO3 ABG Base Excess ABG Hemoglobin VBG pH Oxyhemoglobin Sodium Potassium Chloride Carbon Dioxide BUN Creatinine Glucose POC Glucose 227 H 186 H 225 H Lactic Acid Calcium AST ALT Alkaline Phosphatase CK-MB (CK-2) CK-MB (CK-2) Rel Index Total Protein Albumin TSH Urine WBC (Auto) Salicylates 03/15/17 03/15/1703/15/17 05:21 17:13 21:37 WBC RBC Hgb Hct MCV MCH RDW Plt Count Lymph % (Auto) [place] % (Auto) Eos % (Auto) [place] # Seg Neutrophils % Seg Neuts % (Manual) Lymphocytes % (Manual) Seg Neutrophils # Seg Neutrophils # Man Lymphocytes # (Manual) APTT POC ABG pH ABG pH POC ABG pCO2 POC ABG pO2 ABG pO2 ABG HCO3 ABG Base Excess ABG Hemoglobin VBG pH Oxyhemoglobin Sodium Potassium Chloride Carbon Dioxide BUN Creatinine Glucose POC Glucose 244 H 203 H 216 H Lactic Acid Calcium AST ALT Alkaline Phosphatase CK-MB (CK-2) CK-MB (CK-2) Rel Index Total Protein Albumin TSH Urine WBC (Auto) Salicylates 03/16/17 03/16/17 03/16/17 05:52 18:07 21:54 WBC RBC Hgb Hct MCV MCH RDW Plt Count Lymph % (Auto) [place] % (Auto) Eos % (Auto) [place] # Seg Neutrophils % Seg Neuts % (Manual) Lymphocytes % (Manual) Seg Neutrophils # Seg Neutrophils # Man Lymphocytes # (Manual) APTT POC ABG pH ABG pH POC ABG pCO2 POC ABG pO2 ABG pO2 ABG HCO3 ABG Base Excess ABG Hemoglobin VBG pH Oxyhemoglobin Sodium Potassium Chloride Carbon Dioxide BUN Creatinine Glucose POC Glucose 248 H 254 H 244 H Lactic Acid Calcium AST ALT Alkaline Phosphatase CK-MB (CK-2) CK-MB (CK-2) Rel Index Total Protein Albumin TSH Urine WBC (Auto) Salicylates 03/17/17 03/17/17 03/17/17 07:07 07:42 07:43 WBC RBC Hgb 9.7 L Hct 29.1 L MCV 78 L MCH 26 L RDW 17.4 H Plt Count Lymph % (Auto) [place] % (Auto) Eos % (Auto) [place] # Seg Neutrophils % Seg Neuts % (Manual) Lymphocytes % (Manual) Seg Neutrophils # Seg Neutrophils # Man Lymphocytes # (Manual) APTT POC ABG pH ABG pH POC ABG pCO2 POC ABG pO2 ABG pO2 ABG HCO3 ABG Base Excess ABG Hemoglobin VBG pH Oxyhemoglobin Sodium Potassium Chloride 96.6 L Carbon Dioxide BUN 30 H Creatinine 0.5 L Glucose 251 H POC Glucose 222 H Lactic Acid Calcium AST ALT Alkaline Phosphatase CK-MB (CK-2) CK-MB (CK-2) Rel Index Total Protein Albumin TSH Urine WBC (Auto) Salicylates 03/17/17 03/17/17 03/18/17 14:08 21:20 14:24 WBC RBC Hgb Hct MCV MCH RDW Plt Count Lymph % (Auto) [place] % (Auto) Eos % (Auto) [place] # Seg Neutrophils % Seg Neuts % (Manual) Lymphocytes % (Manual) Seg Neutrophils # Seg Neutrophils # Man Lymphocytes # (Manual) APTT POC ABG pH ABG pH POC ABG pCO2 POC ABG pO2 ABG pO2 ABG HCO3 ABG Base Excess ABG Hemoglobin VBG pH Oxyhemoglobin Sodium Potassium Chloride Carbon Dioxide BUN Creatinine Glucose POC Glucose 281 H 239 H 195 H Lactic Acid Calcium AST ALT Alkaline Phosphatase CK-MB (CK-2) CK-MB (CK-2) Rel Index Total Protein Albumin TSH Urine WBC (Auto) Salicylates 03/18/17 03/19/17 03/19/17 21:37 04:57 14:23 WBC RBC Hgb Hct MCV MCH RDW Plt Count Lymph % (Auto) [place] % (Auto) Eos % (Auto) [place] # Seg Neutrophils % Seg Neuts % (Manual) Lymphocytes % (Manual) Seg Neutrophils # Seg Neutrophils # Man Lymphocytes # (Manual) APTT POC ABG pH ABG pH POC ABG pCO2 POC ABG pO2 ABG pO2 ABG HCO3 ABG Base Excess ABG Hemoglobin VBG pH Oxyhemoglobin Sodium Potassium Chloride Carbon Dioxide BUN Creatinine Glucose POC Glucose 227 H 205 H 277 H Lactic Acid Calcium AST ALT Alkaline Phosphatase CK-MB (CK-2) CK-MB (CK-2) Rel Index Total Protein Albumin TSH Urine WBC (Auto) Salicylates 03/19/17 03/19/17 03/20/17 20:31 21:47 04:55 WBC RBC Hgb Hct MCV MCH RDW Plt Count Lymph % (Auto) [place] % (Auto) Eos % (Auto) [place] # Seg Neutrophils % Seg Neuts % (Manual) Lymphocytes % (Manual) Seg Neutrophils # Seg Neutrophils # Man Lymphocytes # (Manual) APTT POC ABG pH ABG pH POC ABG pCO2 POC ABG pO2 ABG pO2 ABG HCO3 ABG Base Excess ABG Hemoglobin VBG pH Oxyhemoglobin Sodium Potassium Chloride Carbon Dioxide BUN Creatinine Glucose POC Glucose 256 H 270 H 202 H Lactic Acid Calcium AST ALT Alkaline Phosphatase CK-MB (CK-2) CK-MB (CK-2) Rel Index Total Protein Albumin TSH Urine WBC (Auto) Salicylates 03/20/17 03/20/17 03/21/17 14:09 21:40 05:09 WBC RBC Hgb Hct MCV MCH RDW Plt Count Lymph % (Auto) [place] % (Auto) Eos % (Auto) [place] # Seg Neutrophils % Seg Neuts % (Manual) Lymphocytes % (Manual) Seg Neutrophils # Seg Neutrophils # Man Lymphocytes # (Manual) APTT POC ABG pH ABG pH POC ABG pCO2 POC ABG pO2 ABG pO2 ABG HCO3 ABG Base Excess ABG Hemoglobin VBG pH Oxyhemoglobin Sodium Potassium Chloride Carbon Dioxide BUN Creatinine Glucose POC Glucose 200 H 214 H 233 H Lactic Acid Calcium AST ALT Alkaline Phosphatase CK-MB (CK-2) CK-MB (CK-2) Rel Index Total Protein Albumin TSH Urine WBC (Auto) Salicylates 03/21/17 03/21/17 03/22/17 14:06 21:26 05:43 WBC RBC Hgb Hct MCV MCH RDW Plt Count Lymph % (Auto) [place] % (Auto) Eos % (Auto) [place] # Seg Neutrophils % Seg Neuts % (Manual) Lymphocytes % (Manual) Seg Neutrophils # Seg Neutrophils # Man Lymphocytes # (Manual) APTT POC ABG pH ABG pH POC ABG pCO2 POC ABG pO2 ABG pO2 ABG HCO3 ABG Base Excess ABG Hemoglobin VBG pH Oxyhemoglobin Sodium Potassium Chloride Carbon Dioxide BUN Creatinine Glucose POC Glucose 250 H 155 H 251 H Lactic Acid Calcium AST ALT Alkaline Phosphatase CK-MB (CK-2) CK-MB (CK-2) Rel Index Total Protein Albumin TSH Urine WBC (Auto) Salicylates 03/22/17 03/22/17 03/23/17 13:46 21:16 00:23 WBC RBC Hgb Hct MCV MCH RDW Plt Count Lymph % (Auto) [place] % (Auto) Eos % (Auto) [place] # Seg Neutrophils % Seg Neuts % (Manual) Lymphocytes % (Manual) Seg Neutrophils # Seg Neutrophils # Man Lymphocytes # (Manual) APTT POC ABG pH ABG pH POC ABG pCO2 POC ABG pO2 ABG pO2 ABG HCO3 ABG Base Excess ABG Hemoglobin VBG pH Oxyhemoglobin Sodium Potassium Chloride Carbon Dioxide BUN Creatinine Glucose POC Glucose 269 H 197 H 126 H Lactic Acid Calcium AST ALT Alkaline Phosphatase CK-MB (CK-2) CK-MB (CK-2) Rel Index Total Protein Albumin TSH Urine WBC (Auto) Salicylates 03/23/17 03/23/17 03/23/17 05:39 14:06 21:39 WBC RBC Hgb Hct MCV MCH RDW Plt Count Lymph % (Auto) [place] % (Auto) Eos % (Auto) [place] # Seg Neutrophils % Seg Neuts % (Manual) Lymphocytes % (Manual) Seg Neutrophils # Seg Neutrophils # Man Lymphocytes # (Manual) APTT POC ABG pH ABG pH POC ABG pCO2 POC ABG pO2 ABG pO2 ABG HCO3 ABG Base Excess ABG Hemoglobin VBG pH Oxyhemoglobin Sodium Potassium Chloride Carbon Dioxide BUN Creatinine Glucose POC Glucose 234 H 241 H 248 H Lactic Acid Calcium AST ALT Alkaline Phosphatase CK-MB (CK-2) CK-MB (CK-2) Rel Index Total Protein Albumin TSH Urine WBC (Auto) Salicylates 03/24/17 03/24/17 03/25/17 05:06 21:46 05:38 WBC RBC Hgb Hct MCV MCH RDW Plt Count Lymph % (Auto) [place] % (Auto) Eos % (Auto) [place] # Seg Neutrophils % Seg Neuts % (Manual) Lymphocytes % (Manual) Seg Neutrophils # Seg Neutrophils # Man Lymphocytes # (Manual) APTT POC ABG pH ABG pH POC ABG pCO2 POC ABG pO2 ABG pO2 ABG HCO3 ABG Base Excess ABG Hemoglobin VBG pH Oxyhemoglobin Sodium Potassium Chloride Carbon Dioxide BUN Creatinine Glucose POC Glucose 232 H 276 H 242 H Lactic Acid Calcium AST ALT Alkaline Phosphatase CK-MB (CK-2) CK-MB (CK-2) Rel Index Total Protein Albumin TSH Urine WBC (Auto) Salicylates 03/25/17 03/25/17 03/26/17 14:30 23:14 13:53 WBC RBC Hgb Hct MCV MCH RDW Plt Count Lymph % (Auto) [place] % (Auto) Eos % (Auto) [place] # Seg Neutrophils % Seg Neuts % (Manual) Lymphocytes % (Manual) Seg Neutrophils # Seg Neutrophils # Man Lymphocytes # (Manual) APTT POC ABG pH ABG pH POC ABG pCO2 POC ABG pO2 ABG pO2 ABG HCO3 ABG Base Excess ABG Hemoglobin VBG pH Oxyhemoglobin Sodium Potassium Chloride Carbon Dioxide BUN Creatinine Glucose POC Glucose 246 H 208 H 195 H Lactic Acid Calcium AST ALT Alkaline Phosphatase CK-MB (CK-2) CK-MB (CK-2) Rel Index Total Protein Albumin TSH Urine WBC (Auto) Salicylates 03/26/17 03/27/17 03/27/17 21:58 05:18 14:57 WBC RBC Hgb Hct MCV MCH RDW Plt Count Lymph % (Auto) [place] % (Auto) Eos % (Auto) [place] # Seg Neutrophils % Seg Neuts % (Manual) Lymphocytes % (Manual) Seg Neutrophils # Seg Neutrophils # Man Lymphocytes # (Manual) APTT POC ABG pH ABG pH POC ABG pCO2 POC ABG pO2 ABG pO2 ABG HCO3 ABG Base Excess ABG Hemoglobin VBG pH Oxyhemoglobin Sodium Potassium Chloride Carbon Dioxide BUN Creatinine Glucose POC Glucose 241 H 199 H 269 H Lactic Acid Calcium AST ALT Alkaline Phosphatase CK-MB (CK-2) CK-MB (CK-2) Rel Index Total Protein Albumin TSH Urine WBC (Auto) Salicylates 03/27/17 03/28/17 03/28/17 21:33 13:52 21:29 WBC RBC Hgb Hct MCV MCH RDW Plt Count Lymph % (Auto) [place] % (Auto) Eos % (Auto) [place] # Seg Neutrophils % Seg Neuts % (Manual) Lymphocytes % (Manual) Seg Neutrophils # Seg Neutrophils # Man Lymphocytes # (Manual) APTT POC ABG pH ABG pH POC ABG pCO2 POC ABG pO2 ABG pO2 ABG HCO3 ABG Base Excess ABG Hemoglobin VBG pH Oxyhemoglobin Sodium Potassium Chloride Carbon Dioxide BUN Creatinine Glucose POC Glucose 214 H 243 H 286 H Lactic Acid Calcium AST ALT Alkaline Phosphatase CK-MB (CK-2) CK-MB (CK-2) Rel Index Total Protein Albumin TSH Urine WBC (Auto) Salicylates 03/29/17 03/29/17 03/29/17 04:32 04:32 13:58 WBC RBC Hgb 10.6 L Hct 32.9 L MCV 78 L MCH 25 L RDW 17.6 H Plt Count Lymph % (Auto) 38.0 H [place] % (Auto) 9.7 H Eos % (Auto) [place] # Seg Neutrophils % Seg Neuts % (Manual) Lymphocytes % (Manual) Seg Neutrophils # Seg Neutrophils # Man Lymphocytes # (Manual) APTT POC ABG pH ABG pH POC ABG pCO2 POC ABG pO2 ABG pO2 ABG HCO3 ABG Base Excess ABG Hemoglobin VBG pH Oxyhemoglobin Sodium 132 L Potassium Chloride 94.0 L Carbon Dioxide BUN 28 H Creatinine 0.5 L Glucose 236 H POC Glucose 171 H Lactic Acid Calcium AST ALT 71 H Alkaline Phosphatase 391 H CK-MB (CK-2) CK-MB (CK-2) Rel Index Total Protein 8.3 H Albumin 2.9 L TSH Urine WBC (Auto) Salicylates 03/29/17 03/30/17 03/30/17 20:59 06:07 11:52 WBC RBC Hgb Hct MCV MCH RDW Plt Count Lymph % (Auto) [place] % (Auto) Eos % (Auto) [place] # Seg Neutrophils % Seg Neuts % (Manual) Lymphocytes % (Manual) Seg Neutrophils # Seg Neutrophils # Man Lymphocytes # (Manual) APTT POC ABG pH ABG pH POC ABG pCO2 POC ABG pO2 ABG pO2 ABG HCO3 ABG Base Excess ABG Hemoglobin VBG pH Oxyhemoglobin Sodium Potassium Chloride Carbon Dioxide BUN Creatinine Glucose POC Glucose 215 H 259 H 197 H Lactic Acid Calcium AST ALT Alkaline Phosphatase CK-MB (CK-2) CK-MB (CK-2) Rel Index Total Protein Albumin TSH Urine WBC (Auto) Salicylates 03/30/17 03/31/17 03/31/17 21:34 05:42 14:34 WBC RBC Hgb Hct MCV MCH RDW Plt Count Lymph % (Auto) [place] % (Auto) Eos % (Auto) [place] # Seg Neutrophils % Seg Neuts % (Manual) Lymphocytes % (Manual) Seg Neutrophils # Seg Neutrophils # Man Lymphocytes # (Manual) APTT POC ABG pH ABG pH POC ABG pCO2 POC ABG pO2 ABG pO2 ABG HCO3 ABG Base Excess ABG Hemoglobin VBG pH Oxyhemoglobin Sodium Potassium Chloride Carbon Dioxide BUN Creatinine Glucose POC Glucose 207 H 184 H 213 H Lactic Acid Calcium AST ALT Alkaline Phosphatase CK-MB (CK-2) CK-MB (CK-2) Rel Index Total Protein Albumin TSH Urine WBC (Auto) Salicylates 03/31/17 04/01/17 04/01/17 21:32 05:53 13:48 WBC RBC Hgb Hct MCV MCH RDW Plt Count Lymph % (Auto) [place] % (Auto) Eos % (Auto) [place] # Seg Neutrophils % Seg Neuts % (Manual) Lymphocytes % (Manual) Seg Neutrophils # Seg Neutrophils # Man Lymphocytes # (Manual) APTT POC ABG pH ABG pH POC ABG pCO2 POC ABG pO2 ABG pO2 ABG HCO3 ABG Base Excess ABG Hemoglobin VBG pH Oxyhemoglobin Sodium Potassium Chloride Carbon Dioxide BUN Creatinine Glucose POC Glucose 249 H 225 H 256 H Lactic Acid Calcium AST ALT Alkaline Phosphatase CK-MB (CK-2) CK-MB (CK-2) Rel Index Total Protein Albumin TSH Urine WBC (Auto) Salicylates 04/01/17 04/02/17 04/02/17 21:34 05:32 14:05 WBC RBC Hgb Hct MCV MCH RDW Plt Count Lymph % (Auto) [place] % (Auto) Eos % (Auto) [place] # Seg Neutrophils % Seg Neuts % (Manual) Lymphocytes % (Manual) Seg Neutrophils # Seg Neutrophils # Man Lymphocytes # (Manual) APTT POC ABG pH ABG pH POC ABG pCO2 POC ABG pO2 ABG pO2 ABG HCO3 ABG Base Excess ABG Hemoglobin VBG pH Oxyhemoglobin Sodium Potassium Chloride Carbon Dioxide BUN Creatinine Glucose POC Glucose 292 H 220 H 187 H Lactic Acid Calcium AST ALT Alkaline Phosphatase CK-MB (CK-2) CK-MB (CK-2) Rel Index Total Protein Albumin TSH Urine WBC (Auto) Salicylates 04/02/17 04/03/17 04/03/17 21:57 04:49 14:12 WBC RBC Hgb Hct MCV MCH RDW Plt Count Lymph % (Auto) [place] % (Auto) Eos % (Auto) [place] # Seg Neutrophils % Seg Neuts % (Manual) Lymphocytes % (Manual) Seg Neutrophils # Seg Neutrophils # Man Lymphocytes # (Manual) APTT POC ABG pH ABG pH POC ABG pCO2 POC ABG pO2 ABG pO2 ABG HCO3 ABG Base Excess ABG Hemoglobin VBG pH Oxyhemoglobin Sodium Potassium Chloride Carbon Dioxide BUN Creatinine Glucose POC Glucose 285 H 256 H 197 H Lactic Acid Calcium AST ALT Alkaline Phosphatase CK-MB (CK-2) CK-MB (CK-2) Rel Index Total Protein Albumin TSH Urine WBC (Auto) Salicylates 04/03/17 04/04/17 04/04/17 21:11 05:20 13:18 WBC RBC Hgb Hct MCV MCH RDW Plt Count Lymph % (Auto) [place] % (Auto) Eos % (Auto) [place] # Seg Neutrophils % Seg Neuts % (Manual) Lymphocytes % (Manual) Seg Neutrophils # Seg Neutrophils # Man Lymphocytes # (Manual) APTT POC ABG pH ABG pH POC ABG pCO2 POC ABG pO2 ABG pO2 ABG HCO3 ABG Base Excess ABG Hemoglobin VBG pH Oxyhemoglobin Sodium Potassium Chloride Carbon Dioxide BUN Creatinine Glucose POC Glucose 166 H 228 H 252 H Lactic Acid Calcium AST ALT Alkaline Phosphatase CK-MB (CK-2) CK-MB (CK-2) Rel Index Total Protein Albumin TSH Urine WBC (Auto) Salicylates 04/04/17 04/05/17 04/05/17 21:51 06:14 09:54 WBC RBC Hgb Hct MCV MCH RDW Plt Count Lymph % (Auto) [place] % (Auto) Eos % (Auto) [place] # Seg Neutrophils % Seg Neuts % (Manual) Lymphocytes % (Manual) Seg Neutrophils # Seg Neutrophils # Man Lymphocytes # (Manual) APTT POC ABG pH ABG pH POC ABG pCO2 POC ABG pO2 ABG pO2 ABG HCO3 ABG Base Excess ABG Hemoglobin VBG pH Oxyhemoglobin Sodium Potassium Chloride Carbon Dioxide BUN Creatinine Glucose POC Glucose 252 H 152 H 181 H Lactic Acid Calcium AST ALT Alkaline Phosphatase CK-MB (CK-2) CK-MB (CK-2) Rel Index Total Protein Albumin TSH Urine WBC (Auto) Salicylates 04/05/17 04/05/17 04/05/17 14:49 17:34 21:38 WBC RBC Hgb Hct MCV MCH RDW Plt Count Lymph % (Auto) [place] % (Auto) Eos % (Auto) [place] # Seg Neutrophils % Seg Neuts % (Manual) Lymphocytes % (Manual) Seg Neutrophils # Seg Neutrophils # Man Lymphocytes # (Manual) APTT POC ABG pH ABG pH POC ABG pCO2 POC ABG pO2 ABG pO2 ABG HCO3 ABG Base Excess ABG Hemoglobin VBG pH Oxyhemoglobin Sodium Potassium Chloride Carbon Dioxide BUN Creatinine Glucose POC Glucose 219 H 268 H 278 H Lactic Acid Calcium AST ALT Alkaline Phosphatase CK-MB (CK-2) CK-MB (CK-2) Rel Index Total Protein Albumin TSH Urine WBC (Auto) Salicylates 04/06/17 04/06/17 04/07/17 15:04 22:14 05:09 WBC RBC Hgb Hct MCV MCH RDW Plt Count Lymph % (Auto) [place] % (Auto) Eos % (Auto) [place] # Seg Neutrophils % Seg Neuts % (Manual) Lymphocytes % (Manual) Seg Neutrophils # Seg Neutrophils # Man Lymphocytes # (Manual) APTT POC ABG pH ABG pH POC ABG pCO2 POC ABG pO2 ABG pO2 ABG HCO3 ABG Base Excess ABG Hemoglobin VBG pH Oxyhemoglobin Sodium Potassium Chloride Carbon Dioxide BUN Creatinine Glucose POC Glucose 285 H 106 H 334 H Lactic Acid Calcium AST ALT Alkaline Phosphatase CK-MB (CK-2) CK-MB (CK-2) Rel Index Total Protein Albumin TSH Urine WBC (Auto) Salicylates 04/07/17 04/07/17 04/08/17 14:45 21:48 05:28 WBC RBC Hgb Hct MCV MCH RDW Plt Count Lymph % (Auto) [place] % (Auto) Eos % (Auto) [place] # Seg Neutrophils % Seg Neuts % (Manual) Lymphocytes % (Manual) Seg Neutrophils # Seg Neutrophils # Man Lymphocytes # (Manual) APTT POC ABG pH ABG pH POC ABG pCO2 POC ABG pO2 ABG pO2 ABG HCO3 ABG Base Excess ABG Hemoglobin VBG pH Oxyhemoglobin Sodium Potassium Chloride Carbon Dioxide BUN Creatinine Glucose POC Glucose 173 H 304 H 314 H Lactic Acid Calcium AST ALT Alkaline Phosphatase CK-MB (CK-2) CK-MB (CK-2) Rel Index Total Protein Albumin TSH Urine WBC (Auto) Salicylates 04/08/17 04/08/17 04/08/17 15:57 16:17 22:21 WBC RBC Hgb Hct MCV MCH RDW Plt Count Lymph % (Auto) [place] % (Auto) Eos % (Auto) [place] # Seg Neutrophils % Seg Neuts % (Manual) Lymphocytes % (Manual) Seg Neutrophils # Seg Neutrophils # Man Lymphocytes # (Manual) APTT POC ABG pH ABG pH POC ABG pCO2 POC ABG pO2 ABG pO2 ABG HCO3 ABG Base Excess ABG Hemoglobin VBG pH Oxyhemoglobin Sodium Potassium Chloride Carbon Dioxide BUN Creatinine Glucose POC Glucose 356 H 337 H 323 H Lactic Acid Calcium AST ALT Alkaline Phosphatase CK-MB (CK-2) CK-MB (CK-2) Rel Index Total Protein Albumin TSH Urine WBC (Auto) Salicylates 04/09/17 04/09/17 04/09/17 06:19 15:30 21:52 WBC RBC Hgb Hct MCV MCH RDW Plt Count Lymph % (Auto) [place] % (Auto) Eos % (Auto) [place] # Seg Neutrophils % Seg Neuts % (Manual) Lymphocytes % (Manual) Seg Neutrophils # Seg Neutrophils # Man Lymphocytes # (Manual) APTT POC ABG pH ABG pH POC ABG pCO2 POC ABG pO2 ABG pO2 ABG HCO3 ABG Base Excess ABG Hemoglobin VBG pH Oxyhemoglobin Sodium Potassium Chloride Carbon Dioxide BUN Creatinine Glucose POC Glucose 340 H 332 H 341 H Lactic Acid Calcium AST ALT Alkaline Phosphatase CK-MB (CK-2) CK-MB (CK-2) Rel Index Total Protein Albumin TSH Urine WBC (Auto) Salicylates 04/10/17 04/10/17 04/10/17 01:53 05:33 17:40 WBC RBC Hgb Hct MCV MCH RDW Plt Count Lymph % (Auto) [place] % (Auto) Eos % (Auto) [place] # Seg Neutrophils % Seg Neuts % (Manual) Lymphocytes % (Manual) Seg Neutrophils # Seg Neutrophils # Man Lymphocytes # (Manual) APTT POC ABG pH ABG pH POC ABG pCO2 POC ABG pO2 ABG pO2 ABG HCO3 ABG Base Excess ABG Hemoglobin VBG pH Oxyhemoglobin Sodium Potassium Chloride Carbon Dioxide BUN Creatinine Glucose POC Glucose 261 H 277 H 304 H Lactic Acid Calcium AST ALT Alkaline Phosphatase CK-MB (CK-2) CK-MB (CK-2) Rel Index Total Protein Albumin TSH Urine WBC (Auto) Salicylates 04/10/17 04/11/17 04/11/17 21:29 05:28 14:02 WBC RBC Hgb Hct MCV MCH RDW Plt Count Lymph % (Auto) [place] % (Auto) Eos % (Auto) [place] # Seg Neutrophils % Seg Neuts % (Manual) Lymphocytes % (Manual) Seg Neutrophils # Seg Neutrophils # Man Lymphocytes # (Manual) APTT POC ABG pH ABG pH POC ABG pCO2 POC ABG pO2 ABG pO2 ABG HCO3 ABG Base Excess ABG Hemoglobin VBG pH Oxyhemoglobin Sodium Potassium Chloride Carbon Dioxide BUN Creatinine Glucose POC Glucose 361 H 204 H 236 H Lactic Acid Calcium AST ALT Alkaline Phosphatase CK-MB (CK-2) CK-MB (CK-2) Rel Index Total Protein Albumin TSH Urine WBC (Auto) Salicylates 04/11/17 04/12/17 04/12/17 21:43 05:00 11:53 WBC RBC Hgb Hct MCV MCH RDW Plt Count Lymph % (Auto) [place] % (Auto) Eos % (Auto) [place] # Seg Neutrophils % Seg Neuts % (Manual) Lymphocytes % (Manual) Seg Neutrophils # Seg Neutrophils # Man Lymphocytes # (Manual) APTT POC ABG pH ABG pH POC ABG pCO2 POC ABG pO2 ABG pO2 ABG HCO3 ABG Base Excess ABG Hemoglobin VBG pH Oxyhemoglobin Sodium Potassium Chloride Carbon Dioxide BUN Creatinine Glucose POC Glucose 287 H 294 H 265 H Lactic Acid Calcium AST ALT Alkaline Phosphatase CK-MB (CK-2) CK-MB (CK-2) Rel Index Total Protein Albumin TSH Urine WBC (Auto) Salicylates 04/12/17 04/12/17 04/13/17 21:21 23:44 06:05 WBC RBC Hgb Hct MCV MCH RDW Plt Count Lymph % (Auto) [place] % (Auto) Eos % (Auto) [place] # Seg Neutrophils % Seg Neuts % (Manual) Lymphocytes % (Manual) Seg Neutrophils # Seg Neutrophils # Man Lymphocytes # (Manual) APTT POC ABG pH ABG pH POC ABG pCO2 POC ABG pO2 ABG pO2 ABG HCO3 ABG Base Excess ABG Hemoglobin VBG pH Oxyhemoglobin Sodium Potassium Chloride Carbon Dioxide BUN Creatinine Glucose POC Glucose 289 H 348 H 326 H Lactic Acid Calcium AST ALT Alkaline Phosphatase CK-MB (CK-2) CK-MB (CK-2) Rel Index Total Protein Albumin TSH Urine WBC (Auto) Salicylates 04/13/17 04/13/17 04/14/17 13:54 21:15 05:49 WBC RBC Hgb Hct MCV MCH RDW Plt Count Lymph % (Auto) [place] % (Auto) Eos % (Auto) [place] # Seg Neutrophils % Seg Neuts % (Manual) Lymphocytes % (Manual) Seg Neutrophils # Seg Neutrophils # Man Lymphocytes # (Manual) APTT POC ABG pH ABG pH POC ABG pCO2 POC ABG pO2 ABG pO2 ABG HCO3 ABG Base Excess ABG Hemoglobin VBG pH Oxyhemoglobin Sodium Potassium Chloride Carbon Dioxide BUN Creatinine Glucose POC Glucose 326 H 263 H 319 H Lactic Acid Calcium AST ALT Alkaline Phosphatase CK-MB (CK-2) CK-MB (CK-2) Rel Index Total Protein Albumin TSH Urine WBC (Auto) Salicylates 04/14/17 04/14/17 04/15/17 13:26 23:13 14:24 WBC RBC Hgb Hct MCV MCH RDW Plt Count Lymph % (Auto) [place] % (Auto) Eos % (Auto) [place] # Seg Neutrophils % Seg Neuts % (Manual) Lymphocytes % (Manual) Seg Neutrophils # Seg Neutrophils # Man Lymphocytes # (Manual) APTT POC ABG pH ABG pH POC ABG pCO2 POC ABG pO2 ABG pO2 ABG HCO3 ABG Base Excess ABG Hemoglobin VBG pH Oxyhemoglobin Sodium Potassium Chloride Carbon Dioxide BUN Creatinine Glucose POC Glucose 207 H 365 H 308 H Lactic Acid Calcium AST ALT Alkaline Phosphatase CK-MB (CK-2) CK-MB (CK-2) Rel Index Total Protein Albumin TSH Urine WBC (Auto) Salicylates 04/15/17 04/15/17 04/15/17 21:00 22:18 23:12 WBC RBC Hgb Hct MCV MCH RDW Plt Count Lymph % (Auto) [place] % (Auto) Eos % (Auto) [place] # Seg Neutrophils % Seg Neuts % (Manual) Lymphocytes % (Manual) Seg Neutrophils # Seg Neutrophils # Man Lymphocytes # (Manual) APTT POC ABG pH ABG pH POC ABG pCO2 POC ABG pO2 ABG pO2 ABG HCO3 ABG Base Excess ABG Hemoglobin VBG pH Oxyhemoglobin Sodium Potassium Chloride Carbon Dioxide BUN Creatinine Glucose POC Glucose 407 H 287 H 325 H Lactic Acid Calcium AST ALT Alkaline Phosphatase CK-MB (CK-2) CK-MB (CK-2) Rel Index Total Protein Albumin TSH Urine WBC (Auto) Salicylates 04/16/17 04/16/17 04/16/17 05:30 10:07 14:26 WBC RBC Hgb Hct MCV MCH RDW Plt Count Lymph % (Auto) [place] % (Auto) Eos % (Auto) [place] # Seg Neutrophils % Seg Neuts % (Manual) Lymphocytes % (Manual) Seg Neutrophils # Seg Neutrophils # Man Lymphocytes # (Manual) APTT POC ABG pH ABG pH POC ABG pCO2 POC ABG pO2 ABG pO2 ABG HCO3 ABG Base Excess ABG Hemoglobin VBG pH Oxyhemoglobin Sodium Potassium Chloride Carbon Dioxide BUN Creatinine Glucose POC Glucose 304 H 217 H 344 H Lactic Acid Calcium AST ALT Alkaline Phosphatase CK-MB (CK-2) CK-MB (CK-2) Rel Index Total Protein Albumin TSH Urine WBC (Auto) Salicylates 04/16/17 04/17/17 04/17/17 21:25 05:12 14:19 WBC RBC Hgb Hct MCV MCH RDW Plt Count Lymph % (Auto) [place] % (Auto) Eos % (Auto) [place] # Seg Neutrophils % Seg Neuts % (Manual) Lymphocytes % (Manual) Seg Neutrophils # Seg Neutrophils # Man Lymphocytes # (Manual) APTT POC ABG pH ABG pH POC ABG pCO2 POC ABG pO2 ABG pO2 ABG HCO3 ABG Base Excess ABG Hemoglobin VBG pH Oxyhemoglobin Sodium Potassium Chloride Carbon Dioxide BUN Creatinine Glucose POC Glucose 305 H 233 H 324 H Lactic Acid Calcium AST ALT Alkaline Phosphatase CK-MB (CK-2) CK-MB (CK-2) Rel Index Total Protein Albumin TSH Urine WBC (Auto) Salicylates 04/17/17 04/18/17 04/18/17 21:42 06:21 14:08 WBC RBC Hgb Hct MCV MCH RDW Plt Count Lymph % (Auto) [place] % (Auto) Eos % (Auto) [place] # Seg Neutrophils % Seg Neuts % (Manual) Lymphocytes % (Manual) Seg Neutrophils # Seg Neutrophils # Man Lymphocytes # (Manual) APTT POC ABG pH ABG pH POC ABG pCO2 POC ABG pO2 ABG pO2 ABG HCO3 ABG Base Excess ABG Hemoglobin VBG pH Oxyhemoglobin Sodium Potassium Chloride Carbon Dioxide BUN Creatinine Glucose POC Glucose 270 H 308 H 290 H Lactic Acid Calcium AST ALT Alkaline Phosphatase CK-MB (CK-2) CK-MB (CK-2) Rel Index Total Protein Albumin TSH Urine WBC (Auto) Salicylates 04/18/17 04/19/17 04/19/17 21:50 05:20 13:59 WBC RBC Hgb Hct MCV MCH RDW Plt Count Lymph % (Auto) [place] % (Auto) Eos % (Auto) [place] # Seg Neutrophils % Seg Neuts % (Manual) Lymphocytes % (Manual) Seg Neutrophils # Seg Neutrophils # Man Lymphocytes # (Manual) APTT POC ABG pH ABG pH POC ABG pCO2 POC ABG pO2 ABG pO2 ABG HCO3 ABG Base Excess ABG Hemoglobin VBG pH Oxyhemoglobin Sodium Potassium Chloride Carbon Dioxide BUN Creatinine Glucose POC Glucose 167 H 372 H 321 H Lactic Acid Calcium AST ALT Alkaline Phosphatase CK-MB (CK-2) CK-MB (CK-2) Rel Index Total Protein Albumin TSH Urine WBC (Auto) Salicylates 04/19/17 04/20/17 04/20/17 21:16 14:18 21:34 WBC RBC Hgb Hct MCV MCH RDW Plt Count Lymph % (Auto) [place] % (Auto) Eos % (Auto) [place] # Seg Neutrophils % Seg Neuts % (Manual) Lymphocytes % (Manual) Seg Neutrophils # Seg Neutrophils # Man Lymphocytes # (Manual) APTT POC ABG pH ABG pH POC ABG pCO2 POC ABG pO2 ABG pO2 ABG HCO3 ABG Base Excess ABG Hemoglobin VBG pH Oxyhemoglobin Sodium Potassium Chloride Carbon Dioxide BUN Creatinine Glucose POC Glucose 182 H 218 H 121 H Lactic Acid Calcium AST ALT Alkaline Phosphatase CK-MB (CK-2) CK-MB (CK-2) Rel Index Total Protein Albumin TSH Urine WBC (Auto) Salicylates 04/21/17 04/21/17 04/21/17 00:08 05:16 12:41 WBC RBC Hgb Hct MCV MCH RDW Plt Count Lymph % (Auto) [place] % (Auto) Eos % (Auto) [place] # Seg Neutrophils % Seg Neuts % (Manual) Lymphocytes % (Manual) Seg Neutrophils # Seg Neutrophils # Man Lymphocytes # (Manual) APTT POC ABG pH ABG pH POC ABG pCO2 POC ABG pO2 ABG pO2 ABG HCO3 ABG Base Excess ABG Hemoglobin VBG pH Oxyhemoglobin Sodium Potassium Chloride Carbon Dioxide BUN Creatinine Glucose POC Glucose 128 H 120 H 216 H Lactic Acid Calcium AST ALT Alkaline Phosphatase CK-MB (CK-2) CK-MB (CK-2) Rel Index Total Protein Albumin TSH Urine WBC (Auto) Salicylates 04/21/17 04/22/17 04/22/17 23:40 14:12 23:38 WBC RBC Hgb Hct MCV MCH RDW Plt Count Lymph % (Auto) [place] % (Auto) Eos % (Auto) [place] # Seg Neutrophils % Seg Neuts % (Manual) Lymphocytes % (Manual) Seg Neutrophils # Seg Neutrophils # Man Lymphocytes # (Manual) APTT POC ABG pH ABG pH POC ABG pCO2 POC ABG pO2 ABG pO2 ABG HCO3 ABG Base Excess ABG Hemoglobin VBG pH Oxyhemoglobin Sodium Potassium Chloride Carbon Dioxide BUN Creatinine Glucose POC Glucose 157 H 242 H 117 H Lactic Acid Calcium AST ALT Alkaline Phosphatase CK-MB (CK-2) CK-MB (CK-2) Rel Index Total Protein Albumin TSH Urine WBC (Auto) Salicylates 04/23/17 04/23/17 04/24/17 05:18 14:01 03:24 WBC RBC Hgb Hct MCV MCH RDW Plt Count Lymph % (Auto) [place] % (Auto) Eos % (Auto) [place] # Seg Neutrophils % Seg Neuts % (Manual) Lymphocytes % (Manual) Seg Neutrophils # Seg Neutrophils # Man Lymphocytes # (Manual) APTT POC ABG pH ABG pH POC ABG pCO2 POC ABG pO2 ABG pO2 ABG HCO3 ABG Base Excess ABG Hemoglobin VBG pH Oxyhemoglobin Sodium Potassium Chloride Carbon Dioxide BUN Creatinine Glucose POC Glucose 163 H 57 L 177 H Lactic Acid Calcium AST ALT Alkaline Phosphatase CK-MB (CK-2) CK-MB (CK-2) Rel Index Total Protein Albumin TSH Urine WBC (Auto) Salicylates 04/24/17 04/24/17 04/24/17 04:00 04:00 06:33 WBC RBC Hgb 9.9 L Hct 30.0 L MCV 79 L MCH 26 L RDW 17.1 H Plt Count 625 H Lymph % (Auto) [place] % (Auto) 8.4 H Eos % (Auto) [place] # Seg Neutrophils % Seg Neuts % (Manual) Lymphocytes % (Manual) Seg Neutrophils # Seg Neutrophils # Man Lymphocytes # (Manual) APTT POC ABG pH ABG pH POC ABG pCO2 POC ABG pO2 ABG pO2 ABG HCO3 ABG Base Excess ABG Hemoglobin VBG pH Oxyhemoglobin Sodium 136 L Potassium Chloride 94.9 L Carbon Dioxide BUN 40 H Creatinine 0.6 L Glucose 176 H POC Glucose 230 H Lactic Acid Calcium AST 67 H ALT Alkaline Phosphatase 294 H CK-MB (CK-2) CK-MB (CK-2) Rel Index Total Protein 9.0 H Albumin 2.5 L TSH Urine WBC (Auto) Salicylates 04/24/17 04/25/17 04/25/17 13:50 00:22 02:55 WBC RBC 3.54 L Hgb 9.0 L Hct 27.9 L MCV 79 L MCH 26 L RDW 17.5 H Plt Count 574 H Lymph % (Auto) [place] % (Auto) 10.4 H Eos % (Auto) [place] # 1.0 H Seg Neutrophils % Seg Neuts % (Manual) Lymphocytes % (Manual) Seg Neutrophils # Seg Neutrophils # Man Lymphocytes # (Manual) APTT POC ABG pH ABG pH POC ABG pCO2 POC ABG pO2 ABG pO2 ABG HCO3 ABG Base Excess ABG Hemoglobin VBG pH Oxyhemoglobin Sodium Potassium Chloride Carbon Dioxide BUN Creatinine Glucose POC Glucose 116 H < 40 L Lactic Acid Calcium AST ALT Alkaline Phosphatase CK-MB (CK-2) CK-MB (CK-2) Rel Index Total Protein Albumin TSH Urine WBC (Auto) Salicylates 04/25/17 04/25/17 04/25/17 02:55 11:15 18:36 WBC RBC Hgb Hct MCV MCH RDW Plt Count Lymph % (Auto) [place] % (Auto) Eos % (Auto) [place] # Seg Neutrophils % Seg Neuts % (Manual) Lymphocytes % (Manual) Seg Neutrophils # Seg Neutrophils # Man Lymphocytes # (Manual) APTT POC ABG pH ABG pH POC ABG pCO2 POC ABG pO2 ABG pO2 ABG HCO3 ABG Base Excess ABG Hemoglobin VBG pH Oxyhemoglobin Sodium Potassium Chloride 96.2 L Carbon Dioxide BUN 39 H Creatinine 0.7 L Glucose 125 H POC Glucose 227 H 280 H Lactic Acid Calcium AST ALT Alkaline Phosphatase 247 H CK-MB (CK-2) CK-MB (CK-2) Rel Index Total Protein Albumin 2.7 L TSH Urine WBC (Auto) Salicylates 04/25/17 04/26/17 04/26/17 21:49 06:53 07:27 WBC RBC 3.61 L Hgb 9.1 L Hct 28.1 L MCV 78 L MCH 25 L RDW 17.4 H Plt Count 594 H Lymph % (Auto) [place] % (Auto) 9.2 H Eos % (Auto) [place] # 1.0 H Seg Neutrophils % 70.6 H Seg Neuts % (Manual) Lymphocytes % (Manual) Seg Neutrophils # Seg Neutrophils # Man Lymphocytes # (Manual) APTT POC ABG pH ABG pH POC ABG pCO2 POC ABG pO2 ABG pO2 ABG HCO3 ABG Base Excess ABG Hemoglobin VBG pH Oxyhemoglobin Sodium Potassium Chloride Carbon Dioxide BUN Creatinine Glucose POC Glucose 192 H 60 L Lactic Acid Calcium AST ALT Alkaline Phosphatase CK-MB (CK-2) CK-MB (CK-2) Rel Index Total Protein Albumin TSH Urine WBC (Auto) Salicylates 04/26/17 04/26/17 04/26/17 07:27 07:28 13:32 WBC RBC Hgb Hct MCV MCH RDW Plt Count Lymph % (Auto) [place] % (Auto) Eos % (Auto) [place] # Seg Neutrophils % Seg Neuts % (Manual) Lymphocytes % (Manual) Seg Neutrophils # Seg Neutrophils # Man Lymphocytes # (Manual) APTT POC ABG pH ABG pH POC ABG pCO2 POC ABG pO2 ABG pO2 ABG HCO3 ABG Base Excess ABG Hemoglobin VBG pH Oxyhemoglobin Sodium Potassium Chloride 95.0 L Carbon Dioxide BUN 42 H Creatinine 0.7 L Glucose 172 H POC Glucose 190 H 168 H Lactic Acid Calcium AST 56 H ALT Alkaline Phosphatase 274 H CK-MB (CK-2) CK-MB (CK-2) Rel Index Total Protein 8.9 H Albumin 2.7 L TSH Urine WBC (Auto) Salicylates 04/26/17 04/27/17 04/27/17 23:36 05:10 05:10 WBC RBC 3.49 L Hgb 8.7 L Hct 27.0 L MCV 77 L MCH 25 L RDW 17.4 H Plt Count 558 H Lymph % (Auto) [place] % (Auto) 9.6 H Eos % (Auto) [place] # Seg Neutrophils % Seg Neuts % (Manual) Lymphocytes % (Manual) Seg Neutrophils # Seg Neutrophils # Man Lymphocytes # (Manual) APTT POC ABG pH ABG pH POC ABG pCO2 POC ABG pO2 ABG pO2 ABG HCO3 ABG Base Excess ABG Hemoglobin VBG pH Oxyhemoglobin Sodium 133 L Potassium Chloride 93.5 L Carbon Dioxide BUN 40 H Creatinine 0.7 L Glucose 179 H POC Glucose 204 H Lactic Acid Calcium AST 73 H ALT 58 H Alkaline Phosphatase 294 H CK-MB (CK-2) CK-MB (CK-2) Rel Index Total Protein 8.7 H Albumin 2.4 L TSH Urine WBC (Auto) Salicylates 04/27/17 04/27/17 04/27/17 05:45 14:08 23:46 WBC RBC Hgb Hct MCV MCH RDW Plt Count Lymph % (Auto) [place]ick[place] % (Auto) Eos % (Auto) [place] # Seg Neutrophils % Seg Neuts % (Manual) Lymphocytes % (Manual) Seg Neutrophils # Seg Neutrophils # Man Lymphocytes # (Manual) APTT POC ABG pH ABG pH POC ABG pCO2 POC ABG pO2 ABG pO2 ABG HCO3 ABG Base Excess ABG Hemoglobin VBG pH Oxyhemoglobin Sodium Potassium Chloride Carbon Dioxide BUN Creatinine Glucose POC Glucose 200 H 206 H 207 H Lactic Acid Calcium AST ALT Alkaline Phosphatase CK-MB (CK-2) CK-MB (CK-2) Rel Index Total Protein Albumin TSH Urine WBC (Auto) Salicylates 04/28/17 04/28/17 04/28/17 04:48 04:53 05:10 WBC RBC 3.48 L Hgb 8.8 L Hct 26.7 L MCV 77 L MCH 25 L RDW 17.0 H Plt Count 515 H Lymph % (Auto) [place] % (Auto) 8.4 H Eos % (Auto) [place] # Seg Neutrophils % 70.6 H Seg Neuts % (Manual) Lymphocytes % (Manual) Seg Neutrophils # Seg Neutrophils # Man Lymphocytes # (Manual) APTT POC ABG pH ABG pH POC ABG pCO2 POC ABG pO2 ABG pO2 ABG HCO3 ABG Base Excess ABG Hemoglobin VBG pH Oxyhemoglobin Sodium Potassium Chloride Carbon Dioxide BUN Creatinine Glucose POC Glucose 43 L 41 L Lactic Acid Calcium AST ALT Alkaline Phosphatase CK-MB (CK-2) CK-MB (CK-2) Rel Index Total Protein Albumin TSH Urine WBC (Auto) Salicylates 04/28/17 04/28/17 04/28/17 05:10 14:06 22:07 WBC RBC Hgb Hct MCV MCH RDW Plt Count Lymph % (Auto) [place] % (Auto) Eos % (Auto) [place] # Seg Neutrophils % Seg Neuts % (Manual) Lymphocytes % (Manual) Seg Neutrophils # Seg Neutrophils # Man Lymphocytes # (Manual) APTT POC ABG pH ABG pH POC ABG pCO2 POC ABG pO2 ABG pO2 ABG HCO3 ABG Base Excess ABG Hemoglobin VBG pH Oxyhemoglobin Sodium 136 L Potassium Chloride 95.2 L Carbon Dioxide BUN 42 H Creatinine Glucose 63 L POC Glucose 303 H 227 H Lactic Acid Calcium AST 45 H ALT Alkaline Phosphatase 271 H CK-MB (CK-2) CK-MB (CK-2) Rel Index Total Protein 8.9 H Albumin 2.5 L TSH Urine WBC (Auto) Salicylates 04/29/17 04/29/17 04/29/17 06:40 14:11 21:35 WBC RBC Hgb Hct MCV MCH RDW Plt Count Lymph % (Auto) [place] % (Auto) Eos % (Auto) [place] # Seg Neutrophils % Seg Neuts % (Manual) Lymphocytes % (Manual) Seg Neutrophils # Seg Neutrophils # Man Lymphocytes # (Manual) APTT POC ABG pH ABG pH POC ABG pCO2 POC ABG pO2 ABG pO2 ABG HCO3 ABG Base Excess ABG Hemoglobin VBG pH Oxyhemoglobin Sodium Potassium Chloride Carbon Dioxide BUN Creatinine Glucose POC Glucose 254 H 244 H 184 H Lactic Acid Calcium AST ALT Alkaline Phosphatase CK-MB (CK-2) CK-MB (CK-2) Rel Index Total Protein Albumin TSH Urine WBC (Auto) Salicylates 04/30/17 04/30/17 04/30/17 05:17 14:03 22:08 WBC RBC Hgb Hct MCV MCH RDW Plt Count Lymph % (Auto) [place] % (Auto) Eos % (Auto) [place] # Seg Neutrophils % Seg Neuts % (Manual) Lymphocytes % (Manual) Seg Neutrophils # Seg Neutrophils # Man Lymphocytes # (Manual) APTT POC ABG pH ABG pH POC ABG pCO2 POC ABG pO2 ABG pO2 ABG HCO3 ABG Base Excess ABG Hemoglobin VBG pH Oxyhemoglobin Sodium Potassium Chloride Carbon Dioxide BUN Creatinine Glucose POC Glucose 173 H 182 H 247 H Lactic Acid Calcium AST ALT Alkaline Phosphatase CK-MB (CK-2) CK-MB (CK-2) Rel Index Total Protein Albumin TSH Urine WBC (Auto) Salicylates 05/01/17 05/01/17 05/01/17 05:04 15:37 18:50 WBC RBC Hgb Hct MCV MCH RDW Plt Count Lymph % (Auto) [place] % (Auto) Eos % (Auto) [place] # Seg Neutrophils % Seg Neuts % (Manual) Lymphocytes % (Manual) Seg Neutrophils # Seg Neutrophils # Man Lymphocytes # (Manual) APTT POC ABG pH ABG pH POC ABG pCO2 POC ABG pO2 ABG pO2 ABG HCO3 ABG Base Excess ABG Hemoglobin VBG pH Oxyhemoglobin Sodium Potassium Chloride Carbon Dioxide BUN Creatinine Glucose POC Glucose 335 H 68 L 144 H Lactic Acid Calcium AST ALT Alkaline Phosphatase CK-MB (CK-2) CK-MB (CK-2) Rel Index Total Protein Albumin TSH Urine WBC (Auto) Salicylates 05/01/17 05/02/17 05/02/17 22:13 04:59 14:06 WBC RBC Hgb Hct MCV MCH RDW Plt Count Lymph % (Auto) [place] % (Auto) Eos % (Auto) [place] # Seg Neutrophils % Seg Neuts % (Manual) Lymphocytes % (Manual) Seg Neutrophils # Seg Neutrophils # Man Lymphocytes # (Manual) APTT POC ABG pH ABG pH POC ABG pCO2 POC ABG pO2 ABG pO2 ABG HCO3 ABG Base Excess ABG Hemoglobin VBG pH Oxyhemoglobin Sodium Potassium Chloride Carbon Dioxide BUN Creatinine Glucose POC Glucose 192 H 225 H 165 H Lactic Acid Calcium AST ALT Alkaline Phosphatase CK-MB (CK-2) CK-MB (CK-2) Rel Index Total Protein Albumin TSH Urine WBC (Auto) Salicylates 05/02/17 05/03/17 05/03/17 21:20 05:16 16:56 WBC RBC Hgb Hct MCV MCH RDW Plt Count Lymph % (Auto) [place] % (Auto) Eos % (Auto) [place] # Seg Neutrophils % Seg Neuts % (Manual) Lymphocytes % (Manual) Seg Neutrophils # Seg Neutrophils # Man Lymphocytes # (Manual) APTT POC ABG pH ABG pH POC ABG pCO2 POC ABG pO2 ABG pO2 ABG HCO3 ABG Base Excess ABG Hemoglobin VBG pH Oxyhemoglobin Sodium Potassium Chloride Carbon Dioxide BUN Creatinine Glucose POC Glucose 181 H 323 H 125 H Lactic Acid Calcium AST ALT Alkaline Phosphatase CK-MB (CK-2) CK-MB (CK-2) Rel Index Total Protein Albumin TSH Urine WBC (Auto) Salicylates 05/03/17 05/04/17 05/04/17 21:46 05:01 14:24 WBC RBC Hgb Hct MCV MCH RDW Plt Count Lymph % (Auto) [place] % (Auto) Eos % (Auto) [place] # Seg Neutrophils % Seg Neuts % (Manual) Lymphocytes % (Manual) Seg Neutrophils # Seg Neutrophils # Man Lymphocytes # (Manual) APTT POC ABG pH ABG pH POC ABG pCO2 POC ABG pO2 ABG pO2 ABG HCO3 ABG Base Excess ABG Hemoglobin VBG pH Oxyhemoglobin Sodium Potassium Chloride Carbon Dioxide BUN Creatinine Glucose POC Glucose 210 H 360 H 219 H Lactic Acid Calcium AST ALT Alkaline Phosphatase CK-MB (CK-2) CK-MB (CK-2) Rel Index Total Protein Albumin TSH Urine WBC (Auto) Salicylates 05/04/17 05/05/17 05/05/17 21:39 01:58 05:13 WBC RBC Hgb Hct MCV MCH RDW Plt Count Lymph % (Auto) [place] % (Auto) Eos % (Auto) [place] # Seg Neutrophils % Seg Neuts % (Manual) Lymphocytes % (Manual) Seg Neutrophils # Seg Neutrophils # Man Lymphocytes # (Manual) APTT POC ABG pH ABG pH POC ABG pCO2 POC ABG pO2 ABG pO2 ABG HCO3 ABG Base Excess ABG Hemoglobin VBG pH Oxyhemoglobin Sodium Potassium Chloride Carbon Dioxide BUN Creatinine Glucose POC Glucose 126 H 175 H 267 H Lactic Acid Calcium AST ALT Alkaline Phosphatase CK-MB (CK-2) CK-MB (CK-2) Rel Index Total Protein Albumin TSH Urine WBC (Auto) Salicylates 05/05/17 05/05/17 05/05/17 12:19 14:11 21:18 WBC RBC Hgb Hct MCV MCH RDW Plt Count Lymph % (Auto) [place] % (Auto) Eos % (Auto) [place] # Seg Neutrophils % Seg Neuts % (Manual) Lymphocytes % (Manual) Seg Neutrophils # Seg Neutrophils # Man Lymphocytes # (Manual) APTT POC ABG pH ABG pH POC ABG pCO2 POC ABG pO2 ABG pO2 ABG HCO3 ABG Base Excess ABG Hemoglobin VBG pH Oxyhemoglobin Sodium Potassium Chloride Carbon Dioxide BUN Creatinine Glucose POC Glucose 221 H 205 H 156 H Lactic Acid Calcium AST ALT Alkaline Phosphatase CK-MB (CK-2) CK-MB (CK-2) Rel Index Total Protein Albumin TSH Urine WBC (Auto) Salicylates 05/06/17 05/06/17 05/06/17 06:02 15:26 21:43 WBC RBC Hgb Hct MCV MCH RDW Plt Count Lymph % (Auto) [place] % (Auto) Eos % (Auto) [place] # Seg Neutrophils % Seg Neuts % (Manual) Lymphocytes % (Manual) Seg Neutrophils # Seg Neutrophils # Man Lymphocytes # (Manual) APTT POC ABG pH ABG pH POC ABG pCO2 POC ABG pO2 ABG pO2 ABG HCO3 ABG Base Excess ABG Hemoglobin VBG pH Oxyhemoglobin Sodium Potassium Chloride Carbon Dioxide BUN Creatinine Glucose POC Glucose 263 H 143 H 145 H Lactic Acid Calcium AST ALT Alkaline Phosphatase CK-MB (CK-2) CK-MB (CK-2) Rel Index Total Protein Albumin TSH Urine WBC (Auto) Salicylates 05/07/17 05/07/17 05/07/17 05:52 21:46 21:49 WBC RBC Hgb Hct MCV MCH RDW Plt Count Lymph % (Auto) [place] % (Auto) Eos % (Auto) [place] # Seg Neutrophils % Seg Neuts % (Manual) Lymphocytes % (Manual) Seg Neutrophils # Seg Neutrophils # Man Lymphocytes # (Manual) APTT POC ABG pH ABG pH POC ABG pCO2 POC ABG pO2 ABG pO2 ABG HCO3 ABG Base Excess ABG Hemoglobin VBG pH Oxyhemoglobin Sodium Potassium Chloride Carbon Dioxide BUN Creatinine Glucose POC Glucose 242 H < 40 L < 40 L Lactic Acid Calcium AST ALT Alkaline Phosphatase CK-MB (CK-2) CK-MB (CK-2) Rel Index Total Protein Albumin TSH Urine WBC (Auto) Salicylates 05/07/17 05/08/17 05/09/17 22:41 06:14 00:02 WBC RBC Hgb Hct MCV MCH RDW Plt Count Lymph % (Auto) [place] % (Auto) Eos % (Auto) [place] # Seg Neutrophils % Seg Neuts % (Manual) Lymphocytes % (Manual) Seg Neutrophils # Seg Neutrophils # Man Lymphocytes # (Manual) APTT POC ABG pH ABG pH POC ABG pCO2 POC ABG pO2 ABG pO2 ABG HCO3 ABG Base Excess ABG Hemoglobin VBG pH Oxyhemoglobin Sodium Potassium Chloride Carbon Dioxide BUN Creatinine Glucose POC Glucose 183 H 329 H 130 H Lactic Acid Calcium AST ALT Alkaline Phosphatase CK-MB (CK-2) CK-MB (CK-2) Rel Index Total Protein Albumin TSH Urine WBC (Auto) Salicylates 05/09/17 05/09/17 05/09/17 06:08 14:06 21:44 WBC RBC Hgb Hct MCV MCH RDW Plt Count Lymph % (Auto) [place] % (Auto) Eos % (Auto) [place] # Seg Neutrophils % Seg Neuts % (Manual) Lymphocytes % (Manual) Seg Neutrophils # Seg Neutrophils # Man Lymphocytes # (Manual) APTT POC ABG pH ABG pH POC ABG pCO2 POC ABG pO2 ABG pO2 ABG HCO3 ABG Base Excess ABG Hemoglobin VBG pH Oxyhemoglobin Sodium Potassium Chloride Carbon Dioxide BUN Creatinine Glucose POC Glucose 241 H 251 H 198 H Lactic Acid Calcium AST ALT Alkaline Phosphatase CK-MB (CK-2) CK-MB (CK-2) Rel Index Total Protein Albumin TSH Urine WBC (Auto) Salicylates 05/10/17 05/10/17 05/10/17 05:18 14:44 21:53 WBC RBC Hgb Hct MCV MCH RDW Plt Count Lymph % (Auto) [place] % (Auto) Eos % (Auto) [place] # Seg Neutrophils % Seg Neuts % (Manual) Lymphocytes % (Manual) Seg Neutrophils # Seg Neutrophils # Man Lymphocytes # (Manual) APTT POC ABG pH ABG pH POC ABG pCO2 POC ABG pO2 ABG pO2 ABG HCO3 ABG Base Excess ABG Hemoglobin VBG pH Oxyhemoglobin Sodium Potassium Chloride Carbon Dioxide BUN Creatinine Glucose POC Glucose 166 H 224 H 171 H Lactic Acid Calcium AST ALT Alkaline Phosphatase CK-MB (CK-2) CK-MB (CK-2) Rel Index Total Protein Albumin TSH Urine WBC (Auto) Salicylates 05/11/17 05/11/17 05/11/17 05:45 13:44 21:42 WBC RBC Hgb Hct MCV MCH RDW Plt Count Lymph % (Auto) [place] % (Auto) Eos % (Auto) [place] # Seg Neutrophils % Seg Neuts % (Manual) Lymphocytes % (Manual) Seg Neutrophils # Seg Neutrophils # Man Lymphocytes # (Manual) APTT POC ABG pH ABG pH POC ABG pCO2 POC ABG pO2 ABG pO2 ABG HCO3 ABG Base Excess ABG Hemoglobin VBG pH Oxyhemoglobin Sodium Potassium Chloride Carbon Dioxide BUN Creatinine Glucose POC Glucose 199 H 150 H 163 H Lactic Acid Calcium AST ALT Alkaline Phosphatase CK-MB (CK-2) CK-MB (CK-2) Rel Index Total Protein Albumin TSH Urine WBC (Auto) Salicylates 05/12/17 05/12/17 05/12/17 06:03 13:59 21:22 WBC RBC Hgb Hct MCV MCH RDW Plt Count Lymph % (Auto) [place] % (Auto) Eos % (Auto) [place] # Seg Neutrophils % Seg Neuts % (Manual) Lymphocytes % (Manual) Seg Neutrophils # Seg Neutrophils # Man Lymphocytes # (Manual) APTT POC ABG pH ABG pH POC ABG pCO2 POC ABG pO2 ABG pO2 ABG HCO3 ABG Base Excess ABG Hemoglobin VBG pH Oxyhemoglobin Sodium Potassium Chloride Carbon Dioxide BUN Creatinine Glucose POC Glucose 147 H 243 H 116 H Lactic Acid Calcium AST ALT Alkaline Phosphatase CK-MB (CK-2) CK-MB (CK-2) Rel Index Total Protein Albumin TSH Urine WBC (Auto) Salicylates 05/13/17 05/13/17 05/13/17 05:28 13:49 21:29 WBC RBC Hgb Hct MCV MCH RDW Plt Count Lymph % (Auto) [place] % (Auto) Eos % (Auto) [place] # Seg Neutrophils % Seg Neuts % (Manual) Lymphocytes % (Manual) Seg Neutrophils # Seg Neutrophils # Man Lymphocytes # (Manual) APTT POC ABG pH ABG pH POC ABG pCO2 POC ABG pO2 ABG pO2 ABG HCO3 ABG Base Excess ABG Hemoglobin VBG pH Oxyhemoglobin Sodium Potassium Chloride Carbon Dioxide BUN Creatinine Glucose POC Glucose 213 H 224 H 379 H Lactic Acid Calcium AST ALT Alkaline Phosphatase CK-MB (CK-2) CK-MB (CK-2) Rel Index Total Protein Albumin TSH Urine WBC (Auto) Salicylates 05/14/17 05/14/17 05/14/17 05:17 13:35 21:23 WBC RBC Hgb Hct MCV MCH RDW Plt Count Lymph % (Auto) [place] % (Auto) Eos % (Auto) [place] # Seg Neutrophils % Seg Neuts % (Manual) Lymphocytes % (Manual) Seg Neutrophils # Seg Neutrophils # Man Lymphocytes # (Manual) APTT POC ABG pH ABG pH POC ABG pCO2 POC ABG pO2 ABG pO2 ABG HCO3 ABG Base Excess ABG Hemoglobin VBG pH Oxyhemoglobin Sodium Potassium Chloride Carbon Dioxide BUN Creatinine Glucose POC Glucose 234 H 242 H 218 H Lactic Acid Calcium AST ALT Alkaline Phosphatase CK-MB (CK-2) CK-MB (CK-2) Rel Index Total Protein Albumin TSH Urine WBC (Auto) Salicylates 05/15/17 05/15/17 05/16/17 04:58 13:53 01:34 WBC RBC Hgb Hct MCV MCH RDW Plt Count Lymph % (Auto) [place] % (Auto) Eos % (Auto) [place] # Seg Neutrophils % Seg Neuts % (Manual) Lymphocytes % (Manual) Seg Neutrophils # Seg Neutrophils # Man Lymphocytes # (Manual) APTT POC ABG pH ABG pH POC ABG pCO2 POC ABG pO2 ABG pO2 ABG HCO3 ABG Base Excess ABG Hemoglobin VBG pH Oxyhemoglobin Sodium Potassium Chloride Carbon Dioxide BUN Creatinine Glucose POC Glucose 310 H 193 H 263 H Lactic Acid Calcium AST ALT Alkaline Phosphatase CK-MB (CK-2) CK-MB (CK-2) Rel Index Total Protein Albumin TSH Urine WBC (Auto) Salicylates 05/16/17 05/16/17 05/16/17 06:03 14:36 21:59 WBC RBC Hgb Hct MCV MCH RDW Plt Count Lymph % (Auto) [place] % (Auto) Eos % (Auto) [place] # Seg Neutrophils % Seg Neuts % (Manual) Lymphocytes % (Manual) Seg Neutrophils # Seg Neutrophils # Man Lymphocytes # (Manual) APTT POC ABG pH ABG pH POC ABG pCO2 POC ABG pO2 ABG pO2 ABG HCO3 ABG Base Excess ABG Hemoglobin VBG pH Oxyhemoglobin Sodium Potassium Chloride Carbon Dioxide BUN Creatinine Glucose POC Glucose 330 H 272 H 198 H Lactic Acid Calcium AST ALT Alkaline Phosphatase CK-MB (CK-2) CK-MB (CK-2) Rel Index Total Protein Albumin TSH Urine WBC (Auto) Salicylates 05/17/17 05/17/17 05/18/17 05:48 13:59 05:27 WBC RBC Hgb Hct MCV MCH RDW Plt Count Lymph % (Auto) [place] % (Auto) Eos % (Auto) [place] # Seg Neutrophils % Seg Neuts % (Manual) Lymphocytes % (Manual) Seg Neutrophils # Seg Neutrophils # Man Lymphocytes # (Manual) APTT POC ABG pH ABG pH POC ABG pCO2 POC ABG pO2 ABG pO2 ABG HCO3 ABG Base Excess ABG Hemoglobin VBG pH Oxyhemoglobin Sodium Potassium Chloride Carbon Dioxide BUN Creatinine Glucose POC Glucose 204 H 229 H 152 H Lactic Acid Calcium AST ALT Alkaline Phosphatase CK-MB (CK-2) CK-MB (CK-2) Rel Index Total Protein Albumin TSH Urine WBC (Auto) Salicylates 05/18/17 05/18/17 05/19/17 14:16 21:27 04:59 WBC RBC Hgb Hct MCV MCH RDW Plt Count Lymph % (Auto) [place] % (Auto) Eos % (Auto) [place] # Seg Neutrophils % Seg Neuts % (Manual) Lymphocytes % (Manual) Seg Neutrophils # Seg Neutrophils # Man Lymphocytes # (Manual) APTT POC ABG pH ABG pH POC ABG pCO2 POC ABG pO2 ABG pO2 ABG HCO3 ABG Base Excess ABG Hemoglobin VBG pH Oxyhemoglobin Sodium Potassium Chloride Carbon Dioxide BUN Creatinine Glucose POC Glucose 217 H 202 H 131 H Lactic Acid Calcium AST ALT Alkaline Phosphatase CK-MB (CK-2) CK-MB (CK-2) Rel Index Total Protein Albumin TSH Urine WBC (Auto) Salicylates
[2017-05-19] MEDS: PEPCID PO SCH ×2 (10:23→22:15)
[2017-05-19] MEDS: HEPARIN SUB-Q SCH ×3 (10:23→22:15)
--- NOTE | 2017-05-19 15:41 | Progress Note ---
Assessment and Plan Hypoglycemic brain injury Persistent vegetative state Metabolic encephalopathy Hypoglycemia/hypothermia, resolved Acute respiratory failure on mechanical ventilator dependent UTI with klebsiella, treated ( Cx + on 01/28), then with ESBL likely colonization hyponatremia, stable Hypothyroidism IDDM Hypertension low grade Fever, intermittently spikes temp - Cont supportive care and current medication. Monitor vitals, repeat cx on - no growth - increased dose of long acting insulin to 15 unit - Patient is DNR- needs guardianship from the state to give consent for further management, as has no family to give consent. - Documents signed for [facility] proxy update, hospice care evaluation Brief History: 51 YO Male with CKD,HTN, DM presents to ED after found down and unresponsive by his neighbor, who subsequently called EMS. Upon arrival, patient found unresponsive on the floor with a serum glucose of 21, patient has a known history of alcohol abuse and delirium tremens. The patient was administered D5 approximate 500 mls during transport without change in mental status/level of consciousness. Pt seen and evaluated in ED was was found to be unable to protect his airway. Pt was intubated and placed on vent support. Pt found to have evidence of hypothyroidism. He was started on Synthroid. He has since been in the ICU. hosted services analyst try to locate family, even spoke to the friends who he lives with. They themselves were unaware of any family members. After ethics committee meeting on the patient, the decision was made to make him DO NOT RESUSCITATE and to transfer him to hospice. Given his very poor prognosis and poor likelihood of recovery. It was decided that was not his best interest to get trach and PEG. Therefore he'll be transferred to the hospice intubated. Now Awaiting on court order /state guardianship. Hospitalist Physical - Physical exam Narrative exam: General: open eyes HEENT: Moist mucous membranes, , no lymphadenopathy Neck: supple Cardiac: S1-S2 heard Lungs: mechnical ventilated breath sounds Abdomen: soft , nontender, nondistended, bowel sounds positive Extremities: no edema clubbing or cyanosis Skin: no rash or lesions Neurologic: opens eyes, withdraws from painful stimuli, does not follow commend Subjective Date of service: 05/19/17 Principal diagnosis: Acute respiratory failure,encephalopathy Interval history: afebrile o/n, BG stable Objective - Constitutional Vitals: Vital Signs - 12hr 05/19/17 05/19/17 05/19/17 04:01 05:08 06:01 Pulse Rate 67 66 68 Respiratory 14 12 Rate Blood Pressure 110/65 110/65 110/65 O2 Sat by Pulse 100 100 100 Oximetry 05/19/17 05/19/17 05/19/17 10:00 10:15 12:40 Pulse Rate 67 65 66 Respiratory 16 20 Rate Blood Pressure 103/68 O2 Sat by Pulse 100 100 Oximetry - Labs CBC & Chem 7: 04/28/17 05:10 04/28/17 05:10 Labs: Abnormal lab results 05/18/17 05/19/17 05/19/17 Range/Units 21:27 04:59 14:57 POC Glucose 202 H 131 H 216 H (70-105)
[2017-05-20] MEDS: HumuLIN R SUB-Q SCH ×4 (02:04→23:02)
[2017-05-20] MEDS: LEVEMIR (NF) SUB-Q SCH (08:42)
[2017-05-20] MEDS: PEPCID PO SCH ×2 (10:28→21:11)
[2017-05-20] MEDS: HEPARIN SUB-Q SCH ×2 (10:28→21:11)
--- NOTE | 2017-05-20 10:55 | Progress Note ---
Assessment and Plan Hypoglycemic brain injury Persistent vegetative state Metabolic encephalopathy Hypoglycemia/hypothermia, resolved Acute respiratory failure on mechanical ventilator dependent UTI with klebsiella, treated ( Cx + on 01/28), then with ESBL likely colonization hyponatremia, stable Hypothyroidism IDDM Hypertension low grade Fever, intermittently spikes temp - Cont supportive care and current medication. Monitor vitals, repeat cx on - no growth - increased dose of long acting insulin to 15 unit - Patient is DNR- needs guardianship from the state to give consent for further management, as has no family to give consent. - Documents signed for [facility] proxy update, hospice care evaluation Brief History: 51 YO Male with CKD,HTN, DM presents to ED after found down and unresponsive by his neighbor, who subsequently called EMS. Upon arrival, patient found unresponsive on the floor with a serum glucose of 21, patient has a known history of alcohol abuse and delirium tremens. The patient was administered D5 approximate 500 mls during transport without change in mental status/level of consciousness. Pt seen and evaluated in ED was was found to be unable to protect his airway. Pt was intubated and placed on vent support. Pt found to have evidence of hypothyroidism. He was started on Synthroid. He has since been in the ICU. director of rehabilitative services try to locate family, even spoke to the friends who he lives with. They themselves were unaware of any family members. After ethics committee meeting on the patient, the decision was made to make him DO NOT RESUSCITATE and to transfer him to hospice. Given his very poor prognosis and poor likelihood of recovery. It was decided that was not his best interest to get trach and PEG. Therefore he'll be transferred to the hospice intubated. Now Awaiting on court order /state guardianship. Hospitalist Physical - Physical exam Narrative exam: General: open eyes HEENT: Moist mucous membranes, , no lymphadenopathy Neck: supple Cardiac: S1-S2 heard Lungs: mechnical ventilated breath sounds Abdomen: soft , nontender, nondistended, bowel sounds positive Extremities: no edema clubbing or cyanosis Skin: no rash or lesions Neurologic: opens eyes, withdraws from painful stimuli, does not follow commend Subjective Date of service: 05/20/17 Principal diagnosis: Acute respiratory failure,encephalopathy Interval history: afebrile o/n, BG stable Objective - Constitutional Vitals: Vital Signs - 12hr 05/20/17 05/20/17 05/20/17 00:00 00:42 02:00 Temperature 97.9 F Pulse Rate 86 81 Respiratory 14 15 Rate Blood Pressure 112/77 119/79 O2 Sat by Pulse 96 98 Oximetry 05/20/17 05/20/17 05/20/17 03:30 04:00 06:00 Temperature Pulse Rate 80 79 79 Respiratory 12 14 Rate Blood Pressure 113/81 104/72 101/72 O2 Sat by Pulse 99 99 100 Oximetry 05/20/17 05/20/17 05/20/17 06:20 08:00 09:00 Temperature 97.4 F L 98.6 F Pulse Rate 75 Respiratory Rate Blood Pressure 110/71 O2 Sat by Pulse 100 Oximetry 05/20/17 09:18 Temperature Pulse Rate 76 Respiratory 18 Rate Blood Pressure 110/71 O2 Sat by Pulse 100 Oximetry - Labs CBC & Chem 7: 04/28/17 05:10 04/28/17 05:10 Labs: Abnormal lab results 05/19/17 05/20/17 05/20/17 Range/Units 14:57 00:11 05:45 POC Glucose 216 H 197 H 195 H (70-105)
--- NOTE | 2017-05-20 11:26 | Progress Note ---
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 (6) UTI (urinary tract infection) Current Visit: Yes Status: Acute (7) Pyelonephritis Current Visit: No Status: Acute (8) Renal insufficiency Current Visit: No Status: Acute (9) SIRS (systemic inflammatory response syndrome) Current Visit: No Status: Acute Subjective Principal diagnosis: Acute respiratory failure,encephalopathy Interval history: on PSV Objective Vital Signs - 12hr 05/20/17 05/20/17 05/20/17 00:00 00:42 02:00 Temperature 97.9 F Pulse Rate 86 81 Pulse Rate [ From Monitor] Respiratory 14 15 Rate Respiratory Rate [ Generalized] Blood Pressure 112/77 119/79 O2 Sat by Pulse 96 98 Oximetry 05/20/17 05/20/17 05/20/17 03:30 04:00 06:00 Temperature Pulse Rate 80 79 79 Pulse Rate [ From Monitor] Respiratory 12 14 Rate Respiratory Rate [ Generalized] Blood Pressure 113/81 104/72 101/72 O2 Sat by Pulse 99 99 100 Oximetry 05/20/17 05/20/17 05/20/17 06:20 08:00 09:00 Temperature 97.4 F L 98.6 F Pulse Rate 75 Pulse Rate [ From Monitor] Respiratory Rate Respiratory Rate [ Generalized] Blood Pressure 110/71 O2 Sat by Pulse 100 Oximetry 05/20/17 05/20/17 09:18 10:00 Temperature Pulse Rate 76 76 Pulse Rate [ 77 From Monitor] Respiratory 18 12 Rate Respiratory 21 Rate [ Generalized] Blood Pressure 110/71 O2 Sat by Pulse 100 100 Oximetry Constitutional: no acute distress, other (on vent) Eyes: non-icteric ENT: oropharynx moist, other (ETT in position) Neck: supple Effort: normal Ascultation: Bilateral: clear, diminished breath sounds Cardiovascular: regular rate and rhythm (no mrg) Gastrointestinal: normoactive bowel sounds, soft, non-tender, non-distended Integumentary: normal Extremities: no cyanosis, no edema, pink and warm Neurologic: pupils equal and round, other (opens eyes spontaneously, but no responce to commands, not following commands,mild response to touch/pain) Psychiatric: other (unable to obtain) CBC and BMP: 04/28/17 05:10 04/28/17 05:10 ABG, PT/INR, D-dimer: ABG POC ABG pH 7.442 (7.35-7.45) 01/31/17 18:55 ABG pH 7.420 pH Units (7.350-7.450) 01/17/17 04:35 POC ABG pCO2 32.8 (35-45) L 01/31/17 18:55 ABG pCO2 34.5 mm Hg 01/17/17 04:35 POC ABG pO2 82 (80-105) 01/31/17 18:55 ABG pO2 160.3 mm Hg (80.0-90.0) H 01/17/17 04:35 POC ABG HCO3 22.4 01/31/17 18:55 POC ABG Total CO2 23 01/31/17 18:55 POC ABG O2 Sat 97 01/31/17 18:55 ABG O2 Saturation 99.0 % (95.0-99.0) 01/17/17 04:35 PT/INR, D-dimer PT 14.1 Sec. (12.2-14.9) 01/17/17 04:10 INR 1.04 (0.87-1.13) 01/17/17 04:10 Abnormal lab findings: Abnormal Labs 01/09/17 01/09/17 01/09/17 10:16 10:16 10:16 WBC RBC Hgb 9.7 L Hct 28.4 L MCV 76 L MCH 26 L RDW 17.2 H Plt Count 448 H Lymph % (Auto) [place] % (Auto) Eos % (Auto) [place] # Seg Neutrophils % 79.5 H Seg Neuts % (Manual) Lymphocytes % (Manual) Seg Neutrophils # Seg Neutrophils # Man Lymphocytes # (Manual) APTT 39.6 H POC ABG pH ABG pH POC ABG pCO2 POC ABG pO2 ABG pO2 ABG HCO3 ABG Base Excess ABG Hemoglobin VBG pH Oxyhemoglobin Sodium 132 L Potassium Chloride 96.7 L Carbon Dioxide 21 L BUN 34 H Creatinine Glucose POC Glucose Lactic Acid Calcium 8.3 L AST ALT Alkaline Phosphatase 151 H CK-MB (CK-2) 7.1 H CK-MB (CK-2) Rel Index 5.2 H Total Protein Albumin 3.3 L TSH Urine WBC (Auto) Salicylates 01/09/17 01/09/17 01/09/17 10:16 10:16 10:16 WBC RBC Hgb Hct MCV MCH RDW Plt Count Lymph % (Auto) [place] % (Auto) Eos % (Auto) [place] # Seg Neutrophils % Seg Neuts % (Manual) Lymphocytes % (Manual) Seg Neutrophils # Seg Neutrophils # Man Lymphocytes # (Manual) APTT POC ABG pH ABG pH POC ABG pCO2 POC ABG pO2 ABG pO2 ABG HCO3 ABG Base Excess ABG Hemoglobin VBG pH 7.284 L Oxyhemoglobin Sodium Potassium Chloride Carbon Dioxide BUN Creatinine Glucose POC Glucose Lactic Acid Calcium AST ALT Alkaline Phosphatase CK-MB (CK-2) CK-MB (CK-2) Rel Index Total Protein Albumin TSH 52.800 H Urine WBC (Auto) Salicylates < 0.3 L 01/09/17 01/09/17 01/09/17 10:23 11:14 12:49 WBC RBC Hgb Hct MCV MCH RDW Plt Count Lymph % (Auto) [place] % (Auto) Eos % (Auto) [place] # Seg Neutrophils % Seg Neuts % (Manual) Lymphocytes % (Manual) Seg Neutrophils # Seg Neutrophils # Man Lymphocytes # (Manual) APTT POC ABG pH ABG pH POC ABG pCO2 POC ABG pO2 643 H ABG pO2 ABG HCO3 ABG Base Excess ABG Hemoglobin VBG pH Oxyhemoglobin Sodium Potassium Chloride Carbon Dioxide BUN Creatinine Glucose POC Glucose < 40 L Lactic Acid Calcium AST ALT Alkaline Phosphatase CK-MB (CK-2) CK-MB (CK-2) Rel Index Total Protein Albumin TSH Urine WBC (Auto) 61.0 H Salicylates 01/09/17 01/09/17 01/09/17 13:13 14:21 15:09 WBC RBC Hgb Hct MCV MCH RDW Plt Count Lymph % (Auto) [place] % (Auto) Eos % (Auto) [place] # Seg Neutrophils % Seg Neuts % (Manual) Lymphocytes % (Manual) Seg Neutrophils # Seg Neutrophils # Man Lymphocytes # (Manual) APTT POC ABG pH ABG pH POC ABG pCO2 POC ABG pO2 ABG pO2 ABG HCO3 ABG Base Excess ABG Hemoglobin VBG pH Oxyhemoglobin Sodium Potassium Chloride Carbon Dioxide BUN Creatinine Glucose POC Glucose 128 H 65 L 120 H Lactic Acid Calcium AST ALT Alkaline Phosphatase CK-MB (CK-2) CK-MB (CK-2) Rel Index Total Protein Albumin TSH Urine WBC (Auto) Salicylates 01/09/17 01/09/17 01/10/17 16:28 17:14 04:30 WBC 24.1 H RBC 3.38 L Hgb 8.5 L Hct 26.0 L MCV 77 L MCH 25 L RDW 17.9 H Plt Count 474 H Lymph % (Auto) [place] % (Auto) Eos % (Auto) [place] # Seg Neutrophils % Seg Neuts % (Manual) 88.0 H Lymphocytes % (Manual) 4.0 L Seg Neutrophils # Seg Neutrophils # Man 21.2 H Lymphocytes # (Manual) 1.0 L APTT POC ABG pH ABG pH POC ABG pCO2 POC ABG pO2 ABG pO2 ABG HCO3 ABG Base Excess ABG Hemoglobin VBG pH Oxyhemoglobin Sodium Potassium Chloride Carbon Dioxide BUN Creatinine Glucose POC Glucose 44 L 112 H Lactic Acid Calcium AST ALT Alkaline Phosphatase CK-MB (CK-2) CK-MB (CK-2) Rel Index Total Protein Albumin TSH Urine WBC (Auto) Salicylates 01/10/17 01/10/17 01/10/17 04:30 05:41 05:45 WBC RBC Hgb Hct MCV MCH RDW Plt Count Lymph % (Auto) [place] % (Auto) Eos % (Auto) [place] # Seg Neutrophils % Seg Neuts % (Manual) Lymphocytes % (Manual) Seg Neutrophils # Seg Neutrophils # Man Lymphocytes # (Manual) APTT POC ABG pH ABG pH POC ABG pCO2 26.6 L POC ABG pO2 207 H ABG pO2 ABG HCO3 ABG Base Excess ABG Hemoglobin VBG pH Oxyhemoglobin Sodium Potassium Chloride Carbon Dioxide 17 L BUN 27 H Creatinine Glucose POC Glucose 68 L Lactic Acid Calcium 7.5 L AST ALT Alkaline Phosphatase CK-MB (CK-2) CK-MB (CK-2) Rel Index Total Protein Albumin TSH Urine WBC (Auto) Salicylates 01/10/17 01/10/17 01/10/17 07:47 10:50 13:41 WBC RBC Hgb Hct MCV MCH RDW Plt Count Lymph % (Auto) [place] % (Auto) Eos % (Auto) [place] # Seg Neutrophils % Seg Neuts % (Manual) Lymphocytes % (Manual) Seg Neutrophils # Seg Neutrophils # Man Lymphocytes # (Manual) APTT POC ABG pH ABG pH POC ABG pCO2 POC ABG pO2 ABG pO2 ABG HCO3 ABG Base Excess ABG Hemoglobin VBG pH Oxyhemoglobin Sodium Potassium Chloride Carbon Dioxide BUN Creatinine Glucose POC Glucose 148 H 165 H 114 H Lactic Acid Calcium AST ALT Alkaline Phosphatase CK-MB (CK-2) CK-MB (CK-2) Rel Index Total Protein Albumin TSH Urine WBC (Auto) Salicylates 01/10/17 01/10/17 01/10/17 20:20 21:39 23:24 WBC RBC Hgb Hct MCV MCH RDW Plt Count Lymph % (Auto) [place] % (Auto) Eos % (Auto) [place] # Seg Neutrophils % Seg Neuts % (Manual) Lymphocytes % (Manual) Seg Neutrophils # Seg Neutrophils # Man Lymphocytes # (Manual) APTT POC ABG pH ABG pH POC ABG pCO2 POC ABG pO2 ABG pO2 ABG HCO3 ABG Base Excess ABG Hemoglobin VBG pH Oxyhemoglobin Sodium Potassium Chloride Carbon Dioxide BUN Creatinine Glucose POC Glucose 150 H 175 H 155 H Lactic Acid Calcium AST ALT Alkaline Phosphatase CK-MB (CK-2) CK-MB (CK-2) Rel Index Total Protein Albumin TSH Urine WBC (Auto) Salicylates 01/11/17 01/11/17 01/11/17 00:19 04:06 05:20 WBC 15.2 H RBC 3.40 L Hgb 8.9 L Hct 26.3 L MCV 78 L MCH 26 L RDW 18.6 H Plt Count 462 H Lymph % (Auto) 13.2 L [place] % (Auto) Eos % (Auto) [place] # Seg Neutrophils % 80.8 H Seg Neuts % (Manual) Lymphocytes % (Manual) Seg Neutrophils # 12.3 H Seg Neutrophils # Man Lymphocytes # (Manual) APTT POC ABG pH 7.463 H ABG pH POC ABG pCO2 26.2 L POC ABG pO2 185 H ABG pO2 ABG HCO3 ABG Base Excess ABG Hemoglobin VBG pH Oxyhemoglobin Sodium Potassium Chloride Carbon Dioxide BUN Creatinine Glucose POC Glucose 163 H Lactic Acid Calcium AST ALT Alkaline Phosphatase CK-MB (CK-2) CK-MB (CK-2) Rel Index Total Protein Albumin TSH Urine WBC (Auto) Salicylates 01/11/17 01/11/17 01/11/17 05:20 06:21 07:57 WBC RBC Hgb Hct MCV MCH RDW Plt Count Lymph % (Auto) [place] % (Auto) Eos % (Auto) [place] # Seg Neutrophils % Seg Neuts % (Manual) Lymphocytes % (Manual) Seg Neutrophils # Seg Neutrophils # Man Lymphocytes # (Manual) APTT POC ABG pH ABG pH POC ABG pCO2 POC ABG pO2 ABG pO2 ABG HCO3 ABG Base Excess ABG Hemoglobin VBG pH Oxyhemoglobin Sodium Potassium 3.4 L Chloride 111.5 H Carbon Dioxide 17 L BUN Creatinine Glucose 147 H POC Glucose 139 H 188 H Lactic Acid Calcium 8.0 L AST ALT Alkaline Phosphatase CK-MB (CK-2) CK-MB (CK-2) Rel Index Total Protein Albumin TSH Urine WBC (Auto) Salicylates 01/11/17 01/11/17 01/11/17 11:46 16:50 23:15 WBC RBC Hgb Hct MCV MCH RDW Plt Count Lymph % (Auto) [place] % (Auto) Eos % (Auto) [place] # Seg Neutrophils % Seg Neuts % (Manual) Lymphocytes % (Manual) Seg Neutrophils # Seg Neutrophils # Man Lymphocytes # (Manual) APTT POC ABG pH ABG pH POC ABG pCO2 POC ABG pO2 ABG pO2 ABG HCO3 ABG Base Excess ABG Hemoglobin VBG pH Oxyhemoglobin Sodium Potassium Chloride Carbon Dioxide BUN Creatinine Glucose POC Glucose 199 H 235 H 155 H Lactic Acid Calcium AST ALT Alkaline Phosphatase CK-MB (CK-2) CK-MB (CK-2) Rel Index Total Protein Albumin TSH Urine WBC (Auto) Salicylates 01/12/17 01/12/17 01/12/17 05:02 06:56 14:50 WBC RBC Hgb Hct MCV MCH RDW Plt Count Lymph % (Auto) [place] % (Auto) Eos % (Auto) [place] # Seg Neutrophils % Seg Neuts % (Manual) Lymphocytes % (Manual) Seg Neutrophils # Seg Neutrophils # Man Lymphocytes # (Manual) APTT POC ABG pH ABG pH POC ABG pCO2 28.0 L POC ABG pO2 178 H ABG pO2 ABG HCO3 ABG Base Excess ABG Hemoglobin VBG pH Oxyhemoglobin Sodium Potassium Chloride Carbon Dioxide BUN Creatinine Glucose POC Glucose 119 H 164 H Lactic Acid Calcium AST ALT Alkaline Phosphatase CK-MB (CK-2) CK-MB (CK-2) Rel Index Total Protein Albumin TSH Urine WBC (Auto) Salicylates 01/13/17 01/13/17 01/13/17 03:37 03:37 04:26 WBC RBC 3.61 L Hgb 9.3 L Hct 28.0 L MCV 78 L MCH 26 L RDW 18.2 H Plt Count Lymph % (Auto) [place] % (Auto) Eos % (Auto) [place] # Seg Neutrophils % Seg Neuts % (Manual) Lymphocytes % (Manual) Seg Neutrophils # Seg Neutrophils # Man Lymphocytes # (Manual) APTT POC ABG pH 7.485 H ABG pH POC ABG pCO2 25.4 L POC ABG pO2 73 L ABG pO2 ABG HCO3 ABG Base Excess ABG Hemoglobin VBG pH Oxyhemoglobin Sodium Potassium Chloride 112.4 H Carbon Dioxide 19 L BUN Creatinine Glucose 118 H POC Glucose Lactic Acid Calcium 8.0 L AST ALT Alkaline Phosphatase CK-MB (CK-2) CK-MB (CK-2) Rel Index Total Protein Albumin TSH Urine WBC (Auto) Salicylates 01/13/17 01/13/17 01/13/17 06:15 11:50 17:31 WBC RBC Hgb Hct MCV MCH RDW Plt Count Lymph % (Auto) [place] % (Auto) Eos % (Auto) [place] # Seg Neutrophils % Seg Neuts % (Manual) Lymphocytes % (Manual) Seg Neutrophils # Seg Neutrophils # Man Lymphocytes # (Manual) APTT POC ABG pH ABG pH POC ABG pCO2 POC ABG pO2 ABG pO2 ABG HCO3 ABG Base Excess ABG Hemoglobin VBG pH Oxyhemoglobin Sodium Potassium Chloride Carbon Dioxide BUN Creatinine Glucose POC Glucose 116 H 171 H 203 H Lactic Acid Calcium AST ALT Alkaline Phosphatase CK-MB (CK-2) CK-MB (CK-2) Rel Index Total Protein Albumin TSH Urine WBC (Auto) Salicylates 01/14/17 01/14/17 01/14/17 00:02 04:50 04:50 WBC RBC 3.32 L Hgb 8.5 L Hct 26.1 L MCV 79 L MCH 26 L RDW 18.2 H Plt Count Lymph % (Auto) [place] % (Auto) 9.0 H Eos % (Auto) [place] # Seg Neutrophils % Seg Neuts % (Manual) Lymphocytes % (Manual) Seg Neutrophils # Seg Neutrophils # Man Lymphocytes # (Manual) APTT POC ABG pH ABG pH POC ABG pCO2 POC ABG pO2 ABG pO2 ABG HCO3 ABG Base Excess ABG Hemoglobin VBG pH Oxyhemoglobin Sodium Potassium Chloride 112.5 H Carbon Dioxide BUN Creatinine Glucose 149 H POC Glucose 157 H Lactic Acid Calcium 8.1 L AST ALT Alkaline Phosphatase CK-MB (CK-2) CK-MB (CK-2) Rel Index Total Protein Albumin TSH Urine WBC (Auto) Salicylates 01/14/17 01/14/17 01/14/17 05:10 11:27 14:07 WBC RBC Hgb Hct MCV MCH RDW Plt Count Lymph % (Auto) [place] % (Auto) Eos % (Auto) [place] # Seg Neutrophils % Seg Neuts % (Manual) Lymphocytes % (Manual) Seg Neutrophils # Seg Neutrophils # Man Lymphocytes # (Manual) APTT POC ABG pH ABG pH POC ABG pCO2 POC ABG pO2 ABG pO2 ABG HCO3 ABG Base Excess ABG Hemoglobin VBG pH Oxyhemoglobin Sodium Potassium Chloride Carbon Dioxide BUN Creatinine Glucose POC Glucose 176 H 147 H Lactic Acid Calcium AST ALT Alkaline Phosphatase CK-MB (CK-2) CK-MB (CK-2) Rel Index Total Protein Albumin TSH Urine WBC (Auto) 53.0 H Salicylates 01/14/17 01/15/17 01/15/17 16:52 00:04 05:26 WBC RBC Hgb Hct MCV MCH RDW Plt Count Lymph % (Auto) [place] % (Auto) Eos % (Auto) [place] # Seg Neutrophils % Seg Neuts % (Manual) Lymphocytes % (Manual) Seg Neutrophils # Seg Neutrophils # Man Lymphocytes # (Manual) APTT POC ABG pH ABG pH POC ABG pCO2 POC ABG pO2 ABG pO2 ABG HCO3 ABG Base Excess ABG Hemoglobin VBG pH Oxyhemoglobin Sodium Potassium Chloride Carbon Dioxide BUN Creatinine Glucose POC Glucose 131 H 193 H 215 H Lactic Acid Calcium AST ALT Alkaline Phosphatase CK-MB (CK-2) CK-MB (CK-2) Rel Index Total Protein Albumin TSH Urine WBC (Auto) Salicylates 01/15/17 01/15/17 01/15/17 11:49 17:47 21:33 WBC RBC Hgb Hct MCV MCH RDW Plt Count Lymph % (Auto) [place] % (Auto) Eos % (Auto) [place] # Seg Neutrophils % Seg Neuts % (Manual) Lymphocytes % (Manual) Seg Neutrophils # Seg Neutrophils # Man Lymphocytes # (Manual) APTT POC ABG pH ABG pH POC ABG pCO2 POC ABG pO2 ABG pO2 ABG HCO3 ABG Base Excess ABG Hemoglobin VBG pH Oxyhemoglobin Sodium Potassium Chloride Carbon Dioxide BUN Creatinine Glucose POC Glucose 121 H 211 H 275 H Lactic Acid Calcium AST ALT Alkaline Phosphatase CK-MB (CK-2) CK-MB (CK-2) Rel Index Total Protein Albumin TSH Urine WBC (Auto) Salicylates 01/16/17 01/16/17 01/16/17 04:30 05:28 13:45 WBC RBC Hgb Hct MCV MCH RDW Plt Count Lymph % (Auto) [place] % (Auto) Eos % (Auto) [place] # Seg Neutrophils % Seg Neuts % (Manual) Lymphocytes % (Manual) Seg Neutrophils # Seg Neutrophils # Man Lymphocytes # (Manual) APTT POC ABG pH ABG pH 7.457 H POC ABG pCO2 POC ABG pO2 ABG pO2 55.1 L ABG HCO3 19.4 L ABG Base Excess -4.0 L ABG Hemoglobin 6.8 L VBG pH Oxyhemoglobin 94.9 L Sodium Potassium Chloride Carbon Dioxide BUN Creatinine Glucose POC Glucose 271 H 236 H Lactic Acid Calcium AST ALT Alkaline Phosphatase CK-MB (CK-2) CK-MB (CK-2) Rel Index Total Protein Albumin TSH Urine WBC (Auto) Salicylates 01/16/17 01/17/17 01/17/17 21:39 04:10 04:10 WBC 4.4 L RBC 2.98 L Hgb 7.7 L Hct 23.3 L MCV 78 L MCH 26 L RDW 18.1 H Plt Count Lymph % (Auto) [place] % (Auto) Eos % (Auto) [place] # Seg Neutrophils % Seg Neuts % (Manual) Lymphocytes % (Manual) Seg Neutrophils # Seg Neutrophils # Man Lymphocytes # (Manual) APTT POC ABG pH ABG pH POC ABG pCO2 POC ABG pO2 ABG pO2 ABG HCO3 ABG Base Excess ABG Hemoglobin VBG pH Oxyhemoglobin Sodium Potassium 3.3 L Chloride 108.7 H Carbon Dioxide 20 L BUN 8 L Creatinine Glucose 202 H POC Glucose 258 H Lactic Acid Calcium 7.6 L AST ALT Alkaline Phosphatase CK-MB (CK-2) CK-MB (CK-2) Rel Index Total Protein Albumin TSH Urine WBC (Auto) Salicylates 01/17/17 01/17/17 01/17/17 04:35 12:23 16:01 WBC RBC Hgb Hct MCV MCH RDW Plt Count Lymph % (Auto) [place] % (Auto) Eos % (Auto) [place] # Seg Neutrophils % Seg Neuts % (Manual) Lymphocytes % (Manual) Seg Neutrophils # Seg Neutrophils # Man Lymphocytes # (Manual) APTT POC ABG pH ABG pH POC ABG pCO2 POC ABG pO2 ABG pO2 160.3 H ABG HCO3 ABG Base Excess -2.3 L ABG Hemoglobin 7.9 L VBG pH Oxyhemoglobin Sodium Potassium Chloride Carbon Dioxide BUN Creatinine Glucose POC Glucose 321 H 239 H Lactic Acid Calcium AST ALT Alkaline Phosphatase CK-MB (CK-2) CK-MB (CK-2) Rel Index Total Protein Albumin TSH Urine WBC (Auto) Salicylates 01/18/17 01/18/17 01/18/17 05:07 12:09 17:54 WBC RBC Hgb Hct MCV MCH RDW Plt Count Lymph % (Auto) [place] % (Auto) Eos % (Auto) [place] # Seg Neutrophils % Seg Neuts % (Manual) Lymphocytes % (Manual) Seg Neutrophils # Seg Neutrophils # Man Lymphocytes # (Manual) APTT POC ABG pH ABG pH POC ABG pCO2 POC ABG pO2 ABG pO2 ABG HCO3 ABG Base Excess ABG Hemoglobin VBG pH Oxyhemoglobin Sodium Potassium Chloride Carbon Dioxide BUN Creatinine Glucose POC Glucose 155 H 203 H 132 H Lactic Acid Calcium AST ALT Alkaline Phosphatase CK-MB (CK-2) CK-MB (CK-2) Rel Index Total Protein Albumin TSH Urine WBC (Auto) Salicylates 01/18/17 01/19/17 01/19/17 23:43 04:28 12:11 WBC RBC Hgb Hct MCV MCH RDW Plt Count Lymph % (Auto) [place] % (Auto) Eos % (Auto) [place] # Seg Neutrophils % Seg Neuts % (Manual) Lymphocytes % (Manual) Seg Neutrophils # Seg Neutrophils # Man Lymphocytes # (Manual) APTT POC ABG pH ABG pH POC ABG pCO2 POC ABG pO2 ABG pO2 ABG HCO3 ABG Base Excess ABG Hemoglobin VBG pH Oxyhemoglobin Sodium Potassium Chloride Carbon Dioxide BUN Creatinine Glucose POC Glucose 125 H 182 H 153 H Lactic Acid Calcium AST ALT Alkaline Phosphatase CK-MB (CK-2) CK-MB (CK-2) Rel Index Total Protein Albumin TSH Urine WBC (Auto) Salicylates 01/19/17 01/20/17 01/20/17 17:23 00:12 05:44 WBC RBC Hgb Hct MCV MCH RDW Plt Count Lymph % (Auto) [place] % (Auto) Eos % (Auto) [place] # Seg Neutrophils % Seg Neuts % (Manual) Lymphocytes % (Manual) Seg Neutrophils # Seg Neutrophils # Man Lymphocytes # (Manual) APTT POC ABG pH ABG pH POC ABG pCO2 POC ABG pO2 ABG pO2 ABG HCO3 ABG Base Excess ABG Hemoglobin VBG pH Oxyhemoglobin Sodium Potassium Chloride Carbon Dioxide BUN Creatinine Glucose POC Glucose 66 L 139 H 176 H Lactic Acid Calcium AST ALT Alkaline Phosphatase CK-MB (CK-2) CK-MB (CK-2) Rel Index Total Protein Albumin TSH Urine WBC (Auto) Salicylates 01/20/17 01/20/17 01/20/17 11:48 17:42 23:43 WBC RBC Hgb Hct MCV MCH RDW Plt Count Lymph % (Auto) [place] % (Auto) Eos % (Auto) [place] # Seg Neutrophils % Seg Neuts % (Manual) Lymphocytes % (Manual) Seg Neutrophils # Seg Neutrophils # Man Lymphocytes # (Manual) APTT POC ABG pH ABG pH POC ABG pCO2 POC ABG pO2 ABG pO2 ABG HCO3 ABG Base Excess ABG Hemoglobin VBG pH Oxyhemoglobin Sodium Potassium Chloride Carbon Dioxide BUN Creatinine Glucose POC Glucose 218 H 132 H 178 H Lactic Acid Calcium AST ALT Alkaline Phosphatase CK-MB (CK-2) CK-MB (CK-2) Rel Index Total Protein Albumin TSH Urine WBC (Auto) Salicylates 01/21/17 01/21/17 01/21/17 05:34 11:17 23:37 WBC RBC Hgb Hct MCV MCH RDW Plt Count Lymph % (Auto) [place] % (Auto) Eos % (Auto) [place] # Seg Neutrophils % Seg Neuts % (Manual) Lymphocytes % (Manual) Seg Neutrophils # Seg Neutrophils # Man Lymphocytes # (Manual) APTT POC ABG pH ABG pH POC ABG pCO2 POC ABG pO2 ABG pO2 ABG HCO3 ABG Base Excess ABG Hemoglobin VBG pH Oxyhemoglobin Sodium Potassium Chloride Carbon Dioxide BUN Creatinine Glucose POC Glucose 106 H 213 H 140 H Lactic Acid Calcium AST ALT Alkaline Phosphatase CK-MB (CK-2) CK-MB (CK-2) Rel Index Total Protein Albumin TSH Urine WBC (Auto) Salicylates 01/22/17 01/22/1717 04:00 04:00 04:58 WBC RBC 3.26 L Hgb 8.3 L Hct 25.5 L MCV 78 L MCH 25 L RDW 17.9 H Plt Count Lymph % (Auto) [place] % (Auto) 7.9 H Eos % (Auto) 6.2 H [place] # Seg Neutrophils % Seg Neuts % (Manual) Lymphocytes % (Manual) Seg Neutrophils # Seg Neutrophils # Man Lymphocytes # (Manual) APTT POC ABG pH ABG pH POC ABG pCO2 POC ABG pO2 ABG pO2 ABG HCO3 ABG Base Excess ABG Hemoglobin VBG pH Oxyhemoglobin Sodium Potassium Chloride 95.5 L Carbon Dioxide 31 H D BUN Creatinine Glucose 134 H POC Glucose 146 H Lactic Acid Calcium AST 44 H ALT Alkaline Phosphatase 379 H CK-MB (CK-2) CK-MB (CK-2) Rel Index Total Protein Albumin 2.7 L TSH Urine WBC (Auto) Salicylates 01/22/17 01/22/17 01/22/17 12:12 18:12 23:39 WBC RBC Hgb Hct MCV MCH RDW Plt Count Lymph % (Auto) [place] % (Auto) Eos % (Auto) [place] # Seg Neutrophils % Seg Neuts % (Manual) Lymphocytes % (Manual) Seg Neutrophils # Seg Neutrophils # Man Lymphocytes # (Manual) APTT POC ABG pH ABG pH POC ABG pCO2 POC ABG pO2 ABG pO2 ABG HCO3 ABG Base Excess ABG Hemoglobin VBG pH Oxyhemoglobin Sodium Potassium Chloride Carbon Dioxide BUN Creatinine Glucose POC Glucose 255 H 182 H 134 H Lactic Acid Calcium AST ALT Alkaline Phosphatase CK-MB (CK-2) CK-MB (CK-2) Rel Index Total Protein Albumin TSH Urine WBC (Auto) Salicylates 01/23/17 01/23/17 01/23/17 04:43 12:12 17:36 WBC RBC Hgb Hct MCV MCH RDW Plt Count Lymph % (Auto) [place] % (Auto) Eos % (Auto) [place] # Seg Neutrophils % Seg Neuts % (Manual) Lymphocytes % (Manual) Seg Neutrophils # Seg Neutrophils # Man Lymphocytes # (Manual) APTT POC ABG pH ABG pH POC ABG pCO2 POC ABG pO2 ABG pO2 ABG HCO3 ABG Base Excess ABG Hemoglobin VBG pH Oxyhemoglobin Sodium Potassium Chloride Carbon Dioxide BUN Creatinine Glucose POC Glucose 218 H 128 H 156 H Lactic Acid Calcium AST ALT Alkaline Phosphatase CK-MB (CK-2) CK-MB (CK-2) Rel Index Total Protein Albumin TSH Urine WBC (Auto) Salicylates 01/24/17 01/24/17 01/24/17 00:08 05:16 11:40 WBC RBC Hgb Hct MCV MCH RDW Plt Count Lymph % (Auto) [place] % (Auto) Eos % (Auto) [place] # Seg Neutrophils % Seg Neuts % (Manual) Lymphocytes % (Manual) Seg Neutrophils # Seg Neutrophils # Man Lymphocytes # (Manual) APTT POC ABG pH ABG pH POC ABG pCO2 POC ABG pO2 ABG pO2 ABG HCO3 ABG Base Excess ABG Hemoglobin VBG pH Oxyhemoglobin Sodium Potassium Chloride Carbon Dioxide BUN Creatinine Glucose POC Glucose 129 H 169 H 187 H Lactic Acid Calcium AST ALT Alkaline Phosphatase CK-MB (CK-2) CK-MB (CK-2) Rel Index Total Protein Albumin TSH Urine WBC (Auto) Salicylates 01/24/17 01/24/17 01/25/17 17:43 23:23 04:56 WBC RBC Hgb Hct MCV MCH RDW Plt Count Lymph % (Auto) [place] % (Auto) Eos % (Auto) [place] # Seg Neutrophils % Seg Neuts % (Manual) Lymphocytes % (Manual) Seg Neutrophils # Seg Neutrophils # Man Lymphocytes # (Manual) APTT POC ABG pH ABG pH POC ABG pCO2 POC ABG pO2 ABG pO2 ABG HCO3 ABG Base Excess ABG Hemoglobin VBG pH Oxyhemoglobin Sodium Potassium Chloride Carbon Dioxide BUN Creatinine Glucose POC Glucose 215 H 222 H 210 H Lactic Acid Calcium AST ALT Alkaline Phosphatase CK-MB (CK-2) CK-MB (CK-2) Rel Index Total Protein Albumin TSH Urine WBC (Auto) [place] 01/25/17 01/25/17 01/26/17 11:52 17:37 00:02 WBC RBC Hgb Hct MCV MCH RDW Plt Count Lymph % (Auto) [place] % (Auto) Eos % (Auto) [place] # Seg Neutrophils % Seg Neuts % (Manual) Lymphocytes % (Manual) Seg Neutrophils # Seg Neutrophils # Man Lymphocytes # (Manual) APTT POC ABG pH ABG pH POC ABG pCO2 POC ABG pO2 ABG pO2 ABG HCO3 ABG Base Excess ABG Hemoglobin VBG pH Oxyhemoglobin Sodium Potassium Chloride Carbon Dioxide BUN Creatinine Glucose POC Glucose 284 H 218 H 192 H Lactic Acid Calcium AST ALT Alkaline Phosphatase CK-MB (CK-2) CK-MB (CK-2) Rel Index Total Protein Albumin TSH Urine WBC (Auto) Sal[place] 01/26/17 01/26/17 01/26/17 05:33 12:17 17:50 WBC RBC Hgb Hct MCV MCH RDW Plt Count Lymph % (Auto) [place] % (Auto) Eos % (Auto) [place] # Seg Neutrophils % Seg Neuts % (Manual) Lymphocytes % (Manual) Seg Neutrophils # Seg Neutrophils # Man Lymphocytes # (Manual) APTT POC ABG pH ABG pH POC ABG pCO2 POC ABG pO2 ABG pO2 ABG HCO3 ABG Base Excess ABG Hemoglobin VBG pH Oxyhemoglobin Sodium Potassium Chloride Carbon Dioxide BUN Creatinine Glucose POC Glucose 199 H 227 H 229 H Lactic Acid Calcium AST ALT Alkaline Phosphatase CK-MB (CK-2) CK-MB (CK-2) Rel Index Total Protein Albumin TSH Urine WBC (Auto) Sal[place] 01/26/17 01/27/17 01/27/17 23:57 05:31 11:42 WBC RBC Hgb Hct MCV MCH RDW Plt Count Lymph % (Auto) [place] % (Auto) Eos % (Auto) [place] # Seg Neutrophils % Seg Neuts % (Manual) Lymphocytes % (Manual) Seg Neutrophils # Seg Neutrophils # Man Lymphocytes # (Manual) APTT POC ABG pH ABG pH POC ABG pCO2 POC ABG pO2 ABG pO2 ABG HCO3 ABG Base Excess ABG Hemoglobin VBG pH Oxyhemoglobin Sodium Potassium Chloride Carbon Dioxide BUN Creatinine Glucose POC Glucose 186 H 285 H 260 H Lactic Acid Calcium AST ALT Alkaline Phosphatase CK-MB (CK-2) CK-MB (CK-2) Rel Index Total Protein Albumin TSH Urine WBC (Auto) Salicylates 01/27/17 01/27/17 01/27/17 17:47 23:58 Unknown WBC 12.1 H RBC 3.28 L Hgb 8.5 L Hct 25.5 L MCV 78 L MCH 26 L RDW 16.8 H Plt Count 601 H Lymph % (Auto) [place] % (Auto) Eos % (Auto) [place] # Seg Neutrophils % Seg Neuts % (Manual) Lymphocytes % (Manual) Seg Neutrophils # Seg Neutrophils # Man Lymphocytes # (Manual) APTT POC ABG pH ABG pH POC ABG pCO2 POC ABG pO2 ABG pO2 ABG HCO3 ABG Base Excess ABG Hemoglobin VBG pH Oxyhemoglobin Sodium Potassium Chloride Carbon Dioxide BUN Creatinine Glucose POC Glucose 329 H 225 H Lactic Acid Calcium AST ALT Alkaline Phosphatase CK-MB (CK-2) CK-MB (CK-2) Rel Index Total Protein Albumin TSH Urine WBC (Auto) Salicylates 01/27/17 01/28/17 01/28/17 Unknown 03:44 03:44 WBC RBC 3.14 L Hgb 8.2 L Hct 24.1 L MCV 77 L MCH 26 L RDW 16.9 H Plt Count 567 H Lymph % (Auto) [place] % (Auto) Eos % (Auto) [place] # Seg Neutrophils % Seg Neuts % (Manual) Lymphocytes % (Manual) Seg Neutrophils # Seg Neutrophils # Man Lymphocytes # (Manual) APTT POC ABG pH ABG pH POC ABG pCO2 POC ABG pO2 ABG pO2 ABG HCO3 ABG Base Excess ABG Hemoglobin VBG pH Oxyhemoglobin Sodium 128 L Potassium 5.4 H Chloride 87.5 L Carbon Dioxide BUN 44 H 42 H Creatinine Glucose 250 H 128 H POC Glucose Lactic Acid Calcium AST ALT Alkaline Phosphatase CK-MB (CK-2) CK-MB (CK-2) Rel Index Total Protein Albumin TSH Urine WBC (Auto) Salicylates 01/28/17 01/28/17 01/28/17 11:43 16:47 17:52 WBC RBC Hgb Hct MCV MCH RDW Plt Count Lymph % (Auto) [place] % (Auto) Eos % (Auto) [place] # Seg Neutrophils % Seg Neuts % (Manual) Lymphocytes % (Manual) Seg Neutrophils # Seg Neutrophils # Man Lymphocytes # (Manual) APTT POC ABG pH ABG pH POC ABG pCO2 POC ABG pO2 ABG pO2 ABG HCO3 ABG Base Excess ABG Hemoglobin VBG pH Oxyhemoglobin Sodium Potassium Chloride Carbon Dioxide BUN Creatinine Glucose POC Glucose 351 H 249 H Lactic Acid Calcium AST ALT Alkaline Phosphatase CK-MB (CK-2) CK-MB (CK-2) Rel Index Total Protein Albumin TSH Urine WBC (Auto) > 182.0 H Salicylates 01/29/17 01/29/17 01/29/17 05:25 05:25 09:32 WBC 13.6 H RBC 3.25 L Hgb 8.3 L Hct 25.1 L MCV 77 L MCH 26 L RDW 16.8 H Plt Count 514 H Lymph % (Auto) [place] % (Auto) Eos % (Auto) [place] # Seg Neutrophils % Seg Neuts % (Manual) Lymphocytes % (Manual) Seg Neutrophils # Seg Neutrophils # Man Lymphocytes # (Manual) APTT POC ABG pH ABG pH POC ABG pCO2 POC ABG pO2 ABG pO2 ABG HCO3 ABG Base Excess ABG Hemoglobin VBG pH Oxyhemoglobin Sodium Potassium Chloride 97.8 L Carbon Dioxide BUN 34 H Creatinine Glucose 222 H POC Glucose Lactic Acid 2.50 H* Calcium AST ALT Alkaline Phosphatase CK-MB (CK-2) CK-MB (CK-2) Rel Index Total Protein Albumin TSH Urine WBC (Auto) Salicylates 01/29/17 01/29/17 01/29/17 11:56 18:11 23:55 WBC RBC Hgb Hct MCV MCH RDW Plt Count Lymph % (Auto) [place] % (Auto) Eos % (Auto) [place] # Seg Neutrophils % Seg Neuts % (Manual) Lymphocytes % (Manual) Seg Neutrophils # Seg Neutrophils # Man Lymphocytes # (Manual) APTT POC ABG pH ABG pH POC ABG pCO2 POC ABG pO2 ABG pO2 ABG HCO3 ABG Base Excess ABG Hemoglobin VBG pH Oxyhemoglobin Sodium Potassium Chloride Carbon Dioxide BUN Creatinine Glucose POC Glucose 261 H 215 H 176 H Lactic Acid Calcium AST ALT Alkaline Phosphatase CK-MB (CK-2) CK-MB (CK-2) Rel Index Total Protein Albumin TSH Urine WBC (Auto) Salicylates 01/30/17 01/30/17 01/30/17 05:31 05:31 05:34 WBC 15.2 H RBC 3.09 L Hgb 7.9 L Hct 23.9 L MCV 77 L MCH 26 L RDW 16.9 H Plt Count 569 H Lymph % (Auto) [place] % (Auto) Eos % (Auto) [place] # Seg Neutrophils % Seg Neuts % (Manual) Lymphocytes % (Manual) Seg Neutrophils # Seg Neutrophils # Man Lymphocytes # (Manual) APTT POC ABG pH ABG pH POC ABG pCO2 POC ABG pO2 ABG pO2 ABG HCO3 ABG Base Excess ABG Hemoglobin VBG pH Oxyhemoglobin Sodium Potassium Chloride Carbon Dioxide BUN 24 H Creatinine Glucose 235 H POC Glucose 243 H Lactic Acid Calcium AST ALT Alkaline Phosphatase CK-MB (CK-2) CK-MB (CK-2) Rel Index Total Protein Albumin TSH Urine WBC (Auto) Salicylates 01/30/17 01/30/17 01/30/17 11:38 17:58 23:29 WBC RBC Hgb Hct MCV MCH RDW Plt Count Lymph % (Auto) [place] % (Auto) Eos % (Auto) [place] # Seg Neutrophils % Seg Neuts % (Manual) Lymphocytes % (Manual) Seg Neutrophils # Seg Neutrophils # Man Lymphocytes # (Manual) APTT POC ABG pH ABG pH POC ABG pCO2 POC ABG pO2 ABG pO2 ABG HCO3 ABG Base Excess ABG Hemoglobin VBG pH Oxyhemoglobin Sodium Potassium Chloride Carbon Dioxide BUN Creatinine Glucose POC Glucose 298 H 208 H 245 H Lactic Acid Calcium AST ALT Alkaline Phosphatase CK-MB (CK-2) CK-MB (CK-2) Rel Index Total Protein Albumin TSH Urine WBC (Auto) Salicylates 01/31/17 01/31/17 01/31/17 04:39 04:39 05:57 WBC 11.4 H RBC 3.22 L Hgb 8.2 L Hct 24.9 L MCV 78 L MCH 25 L RDW 17.2 H Plt Count 576 H Lymph % (Auto) [place] % (Auto) Eos % (Auto) [place] # Seg Neutrophils % Seg Neuts % (Manual) Lymphocytes % (Manual) Seg Neutrophils # Seg Neutrophils # Man Lymphocytes # (Manual) APTT POC ABG pH ABG pH POC ABG pCO2 POC ABG pO2 ABG pO2 ABG HCO3 ABG Base Excess ABG Hemoglobin VBG pH Oxyhemoglobin Sodium Potassium Chloride Carbon Dioxide BUN Creatinine 0.7 L Glucose 223 H POC Glucose 264 H Lactic Acid Calcium AST ALT Alkaline Phosphatase CK-MB (CK-2) CK-MB (CK-2) Rel Index Total Protein Albumin TSH Urine WBC (Auto) Salicylates 01/31/17 01/31/17 01/31/17 12:23 17:41 18:55 WBC RBC Hgb Hct MCV MCH RDW Plt Count Lymph % (Auto) [place] % (Auto) Eos % (Auto) [place] # Seg Neutrophils % Seg Neuts % (Manual) Lymphocytes % (Manual) Seg Neutrophils # Seg Neutrophils # Man Lymphocytes # (Manual) APTT POC ABG pH ABG pH POC ABG pCO2 32.8 L POC ABG pO2 ABG pO2 ABG HCO3 ABG Base Excess ABG Hemoglobin VBG pH Oxyhemoglobin Sodium Potassium Chloride Carbon Dioxide BUN Creatinine Glucose POC Glucose 252 H 208 H Lactic Acid Calcium AST ALT Alkaline Phosphatase CK-MB (CK-2) CK-MB (CK-2) Rel Index Total Protein Albumin TSH Urine WBC (Auto) Salicylates 01/31/17 02/01/17 02/01/17 22:59 03:38 03:38 WBC RBC 2.81 L Hgb 7.4 L Hct 22.1 L MCV 79 L MCH 27 L RDW 17.0 H Plt Count 540 H Lymph % (Auto) [place] % (Auto) Eos % (Auto) [place] # Seg Neutrophils % Seg Neuts % (Manual) Lymphocytes % (Manual) Seg Neutrophils # Seg Neutrophils # Man Lymphocytes # (Manual) APTT POC ABG pH ABG pH POC ABG pCO2 POC ABG pO2 ABG pO2 ABG HCO3 ABG Base Excess ABG Hemoglobin VBG pH Oxyhemoglobin Sodium Potassium Chloride Carbon Dioxide 21 L BUN Creatinine 0.7 L Glucose POC Glucose 40 L Lactic Acid Calcium AST ALT Alkaline Phosphatase CK-MB (CK-2) CK-MB (CK-2) Rel Index Total Protein Albumin TSH Urine WBC (Auto) Salicylates 02/01/17 02/01/17 02/01/17 05:17 12:19 16:44 WBC RBC Hgb Hct MCV MCH RDW Plt Count Lymph % (Auto) [place] % (Auto) Eos % (Auto) [place] # Seg Neutrophils % Seg Neuts % (Manual) Lymphocytes % (Manual) Seg Neutrophils # Seg Neutrophils # Man Lymphocytes # (Manual) APTT POC ABG pH ABG pH POC ABG pCO2 POC ABG pO2 ABG pO2 ABG HCO3 ABG Base Excess ABG Hemoglobin VBG pH Oxyhemoglobin Sodium Potassium Chloride Carbon Dioxide BUN Creatinine Glucose POC Glucose 140 H 213 H 172 H Lactic Acid Calcium AST ALT Alkaline Phosphatase CK-MB (CK-2) CK-MB (CK-2) Rel Index Total Protein Albumin TSH Urine WBC (Auto) Salicylates 02/01/17 02/02/17 02/02/17 23:59 05:14 11:24 WBC RBC Hgb Hct MCV MCH RDW Plt Count Lymph % (Auto) [place] % (Auto) Eos % (Auto) [place] # Seg Neutrophils % Seg Neuts % (Manual) Lymphocytes % (Manual) Seg Neutrophils # Seg Neutrophils # Man Lymphocytes # (Manual) APTT POC ABG pH ABG pH POC ABG pCO2 POC ABG pO2 ABG pO2 ABG HCO3 ABG Base Excess ABG Hemoglobin VBG pH Oxyhemoglobin Sodium Potassium Chloride Carbon Dioxide BUN Creatinine Glucose POC Glucose 181 H 194 H 209 H Lactic Acid Calcium AST ALT Alkaline Phosphatase CK-MB (CK-2) CK-MB (CK-2) Rel Index Total Protein Albumin TSH Urine WBC (Auto) Salicylates 02/02/17 02/02/17 02/02/17 11:46 11:46 17:47 WBC RBC 2.94 L Hgb 7.5 L Hct 23.0 L MCV 78 L MCH 25 L RDW 16.9 H Plt Count 520 H Lymph % (Auto) [place] % (Auto) Eos % (Auto) [place] # Seg Neutrophils % Seg Neuts % (Manual) Lymphocytes % (Manual) Seg Neutrophils # Seg Neutrophils # Man Lymphocytes # (Manual) APTT POC ABG pH ABG pH POC ABG pCO2 POC ABG pO2 ABG pO2 ABG HCO3 ABG Base Excess ABG Hemoglobin VBG pH Oxyhemoglobin Sodium Potassium Chloride Carbon Dioxide BUN Creatinine 0.6 L Glucose 189 H POC Glucose 147 H Lactic Acid Calcium 8.1 L AST ALT Alkaline Phosphatase CK-MB (CK-2) CK-MB (CK-2) Rel Index Total Protein Albumin TSH Urine WBC (Auto) Salicylates 02/02/17 02/03/17 02/03/17 23:32 05:53 11:19 WBC RBC Hgb Hct MCV MCH RDW Plt Count Lymph % (Auto) [place] % (Auto) Eos % (Auto) [place] # Seg Neutrophils % Seg Neuts % (Manual) Lymphocytes % (Manual) Seg Neutrophils # Seg Neutrophils # Man Lymphocytes # (Manual) APTT POC ABG pH ABG pH POC ABG pCO2 POC ABG pO2 ABG pO2 ABG HCO3 ABG Base Excess ABG Hemoglobin VBG pH Oxyhemoglobin Sodium Potassium Chloride Carbon Dioxide BUN Creatinine Glucose POC Glucose 176 H 224 H 228 H Lactic Acid Calcium AST ALT Alkaline Phosphatase CK-MB (CK-2) CK-MB (CK-2) Rel Index Total Protein Albumin TSH Urine WBC (Auto) Salicylates 02/03/17 02/03/17 02/04/17 16:59 23:38 05:45 WBC RBC Hgb Hct MCV MCH RDW Plt Count Lymph % (Auto) [place] % (Auto) Eos % (Auto) [place] # Seg Neutrophils % Seg Neuts % (Manual) Lymphocytes % (Manual) Seg Neutrophils # Seg Neutrophils # Man Lymphocytes # (Manual) APTT POC ABG pH ABG pH POC ABG pCO2 POC ABG pO2 ABG pO2 ABG HCO3 ABG Base Excess ABG Hemoglobin VBG pH Oxyhemoglobin Sodium Potassium Chloride Carbon Dioxide BUN Creatinine Glucose POC Glucose 189 H 191 H 251 H Lactic Acid Calcium AST ALT Alkaline Phosphatase CK-MB (CK-2) CK-MB (CK-2) Rel Index Total Protein Albumin TSH Urine WBC (Auto) Salicylates 02/04/17 02/04/17 02/05/17 11:20 17:20 00:17 WBC RBC Hgb Hct MCV MCH RDW Plt Count Lymph % (Auto) [place] % (Auto) Eos % (Auto) [place] # Seg Neutrophils % Seg Neuts % (Manual) Lymphocytes % (Manual) Seg Neutrophils # Seg Neutrophils # Man Lymphocytes # (Manual) APTT POC ABG pH ABG pH POC ABG pCO2 POC ABG pO2 ABG pO2 ABG HCO3 ABG Base Excess ABG Hemoglobin VBG pH Oxyhemoglobin Sodium Potassium Chloride Carbon Dioxide BUN Creatinine Glucose POC Glucose 243 H 163 H 200 H Lactic Acid Calcium AST ALT Alkaline Phosphatase CK-MB (CK-2) CK-MB (CK-2) Rel Index Total Protein Albumin TSH Urine WBC (Auto) Salicylates 02/05/17 02/05/17 02/05/17 05:38 12:38 16:29 WBC RBC Hgb Hct MCV MCH RDW Plt Count Lymph % (Auto) [place] % (Auto) Eos % (Auto) [place] # Seg Neutrophils % Seg Neuts % (Manual) Lymphocytes % (Manual) Seg Neutrophils # Seg Neutrophils # Man Lymphocytes # (Manual) APTT POC ABG pH ABG pH POC ABG pCO2 POC ABG pO2 ABG pO2 ABG HCO3 ABG Base Excess ABG Hemoglobin VBG pH Oxyhemoglobin Sodium Potassium Chloride Carbon Dioxide BUN Creatinine Glucose POC Glucose 248 H 241 H 257 H Lactic Acid Calcium AST ALT Alkaline Phosphatase CK-MB (CK-2) CK-MB (CK-2) Rel Index Total Protein Albumin TSH Urine WBC (Auto) Salicylates 02/05/17 02/06/17 02/06/17 23:56 05:30 11:50 WBC RBC Hgb Hct MCV MCH RDW Plt Count Lymph % (Auto) [place] % (Auto) Eos % (Auto) [place] # Seg Neutrophils % Seg Neuts % (Manual) Lymphocytes % (Manual) Seg Neutrophils # Seg Neutrophils # Man Lymphocytes # (Manual) APTT POC ABG pH ABG pH POC ABG pCO2 POC ABG pO2 ABG pO2 ABG HCO3 ABG Base Excess ABG Hemoglobin VBG pH Oxyhemoglobin Sodium Potassium Chloride Carbon Dioxide BUN Creatinine Glucose POC Glucose 258 H 120 H 254 H Lactic Acid Calcium AST ALT Alkaline Phosphatase CK-MB (CK-2) CK-MB (CK-2) Rel Index Total Protein Albumin TSH Urine WBC (Auto) Salicylates 02/06/17 02/06/17 02/07/17 17:11 23:50 05:22 WBC RBC Hgb Hct MCV MCH RDW Plt Count Lymph % (Auto) [place] % (Auto) Eos % (Auto) [place] # Seg Neutrophils % Seg Neuts % (Manual) Lymphocytes % (Manual) Seg Neutrophils # Seg Neutrophils # Man Lymphocytes # (Manual) APTT POC ABG pH ABG pH POC ABG pCO2 POC ABG pO2 ABG pO2 ABG HCO3 ABG Base Excess ABG Hemoglobin VBG pH Oxyhemoglobin Sodium Potassium Chloride Carbon Dioxide BUN Creatinine Glucose POC Glucose 149 H 240 H 258 H Lactic Acid Calcium AST ALT Alkaline Phosphatase CK-MB (CK-2) CK-MB (CK-2) Rel Index Total Protein Albumin TSH Urine WBC (Auto) Salicylates 02/07/17 02/07/17 02/07/17 11:15 18:33 23:59 WBC RBC Hgb Hct MCV MCH RDW Plt Count Lymph % (Auto) [place] % (Auto) Eos % (Auto) [place] # Seg Neutrophils % Seg Neuts % (Manual) Lymphocytes % (Manual) Seg Neutrophils # Seg Neutrophils # Man Lymphocytes # (Manual) APTT POC ABG pH ABG pH POC ABG pCO2 POC ABG pO2 ABG pO2 ABG HCO3 ABG Base Excess ABG Hemoglobin VBG pH Oxyhemoglobin Sodium Potassium Chloride Carbon Dioxide BUN Creatinine Glucose POC Glucose 239 H 176 H 186 H Lactic Acid Calcium AST ALT Alkaline Phosphatase CK-MB (CK-2) CK-MB (CK-2) Rel Index Total Protein Albumin TSH Urine WBC (Auto) Salicylates 02/08/17 02/08/17 02/08/17 06:15 11:55 16:55 WBC RBC Hgb Hct MCV MCH RDW Plt Count Lymph % (Auto) [place] % (Auto) Eos % (Auto) [place] # Seg Neutrophils % Seg Neuts % (Manual) Lymphocytes % (Manual) Seg Neutrophils # Seg Neutrophils # Man Lymphocytes # (Manual) APTT POC ABG pH ABG pH POC ABG pCO2 POC ABG pO2 ABG pO2 ABG HCO3 ABG Base Excess ABG Hemoglobin VBG pH Oxyhemoglobin Sodium Potassium Chloride Carbon Dioxide BUN Creatinine Glucose POC Glucose 195 H 129 H 246 H Lactic Acid Calcium AST ALT Alkaline Phosphatase CK-MB (CK-2) CK-MB (CK-2) Rel Index Total Protein Albumin TSH Urine WBC (Auto) Salicylates 02/08/17 02/09/17 02/09/17 23:51 05:51 07:24 WBC 14.7 H RBC 3.39 L Hgb 8.9 L Hct 26.4 L MCV 78 L MCH 26 L RDW 18.4 H Plt Count 670 H Lymph % (Auto) 11.8 L [place] % (Auto) Eos % (Auto) [place] # Seg Neutrophils % 81.2 H Seg Neuts % (Manual) Lymphocytes % (Manual) Seg Neutrophils # 11.9 H Seg Neutrophils # Man Lymphocytes # (Manual) APTT POC ABG pH ABG pH POC ABG pCO2 POC ABG pO2 ABG pO2 ABG HCO3 ABG Base Excess ABG Hemoglobin VBG pH Oxyhemoglobin Sodium Potassium Chloride Carbon Dioxide BUN Creatinine Glucose POC Glucose 262 H 295 H Lactic Acid Calcium AST ALT Alkaline Phosphatase CK-MB (CK-2) CK-MB (CK-2) Rel Index Total Protein Albumin TSH Urine WBC (Auto) Salicylates 02/09/17 02/09/17 02/09/17 07:24 12:08 18:39 WBC RBC Hgb Hct MCV MCH RDW Plt Count Lymph % (Auto) [place] % (Auto) Eos % (Auto) [place] # Seg Neutrophils % Seg Neuts % (Manual) Lymphocytes % (Manual) Seg Neutrophils # Seg Neutrophils # Man Lymphocytes # (Manual) APTT POC ABG pH ABG pH POC ABG pCO2 POC ABG pO2 ABG pO2 ABG HCO3 ABG Base Excess ABG Hemoglobin VBG pH Oxyhemoglobin Sodium Potassium Chloride 95.5 L Carbon Dioxide BUN 52 H Creatinine Glucose 277 H POC Glucose 236 H 151 H Lactic Acid Calcium AST ALT Alkaline Phosphatase CK-MB (CK-2) CK-MB (CK-2) Rel Index Total Protein Albumin TSH Urine WBC (Auto) Salicylates 02/10/17 02/10/17 02/10/17 00:01 05:44 11:21 WBC RBC Hgb Hct MCV MCH RDW Plt Count Lymph % (Auto) [place] % (Auto) Eos % (Auto) [place] # Seg Neutrophils % Seg Neuts % (Manual) Lymphocytes % (Manual) Seg Neutrophils # Seg Neutrophils # Man Lymphocytes # (Manual) APTT POC ABG pH ABG pH POC ABG pCO2 POC ABG pO2 ABG pO2 ABG HCO3 ABG Base Excess ABG Hemoglobin VBG pH Oxyhemoglobin Sodium Potassium Chloride Carbon Dioxide BUN Creatinine Glucose POC Glucose 210 H 201 H 233 H Lactic Acid Calcium AST ALT Alkaline Phosphatase CK-MB (CK-2) CK-MB (CK-2) Rel Index Total Protein Albumin TSH Urine WBC (Auto) Salicylates 02/10/17 02/10/17 02/11/17 17:29 23:56 05:24 WBC RBC Hgb Hct MCV MCH RDW Plt Count Lymph % (Auto) [place] % (Auto) Eos % (Auto) [place] # Seg Neutrophils % Seg Neuts % (Manual) Lymphocytes % (Manual) Seg Neutrophils # Seg Neutrophils # Man Lymphocytes # (Manual) APTT POC ABG pH ABG pH POC ABG pCO2 POC ABG pO2 ABG pO2 ABG HCO3 ABG Base Excess ABG Hemoglobin VBG pH Oxyhemoglobin Sodium Potassium Chloride Carbon Dioxide BUN Creatinine Glucose POC Glucose 167 H 191 H 135 H Lactic Acid Calcium AST ALT Alkaline Phosphatase CK-MB (CK-2) CK-MB (CK-2) Rel Index Total Protein Albumin TSH Urine WBC (Auto) Salicylates 02/11/17 02/11/17 02/11/17 12:25 17:03 23:59 WBC RBC Hgb Hct MCV MCH RDW Plt Count Lymph % (Auto) [place] % (Auto) Eos % (Auto) [place] # Seg Neutrophils % Seg Neuts % (Manual) Lymphocytes % (Manual) Seg Neutrophils # Seg Neutrophils # Man Lymphocytes # (Manual) APTT POC ABG pH ABG pH POC ABG pCO2 POC ABG pO2 ABG pO2 ABG HCO3 ABG Base Excess ABG Hemoglobin VBG pH Oxyhemoglobin Sodium Potassium Chloride Carbon Dioxide BUN Creatinine Glucose POC Glucose 275 H 172 H 215 H Lactic Acid Calcium AST ALT Alkaline Phosphatase CK-MB (CK-2) CK-MB (CK-2) Rel Index Total Protein Albumin TSH Urine WBC (Auto) Salicylates 02/12/17 02/12/17 02/12/17 05:39 11:33 17:55 WBC RBC Hgb Hct MCV MCH RDW Plt Count Lymph % (Auto) [place] % (Auto) Eos % (Auto) [place] # Seg Neutrophils % Seg Neuts % (Manual) Lymphocytes % (Manual) Seg Neutrophils # Seg Neutrophils # Man Lymphocytes # (Manual) APTT POC ABG pH ABG pH POC ABG pCO2 POC ABG pO2 ABG pO2 ABG HCO3 ABG Base Excess ABG Hemoglobin VBG pH Oxyhemoglobin Sodium Potassium Chloride Carbon Dioxide BUN Creatinine Glucose POC Glucose 261 H 217 H 172 H Lactic Acid Calcium AST ALT Alkaline Phosphatase CK-MB (CK-2) CK-MB (CK-2) Rel Index Total Protein Albumin TSH Urine WBC (Auto) Salicylates 02/13/17 02/13/17 02/13/17 00:25 06:46 11:26 WBC RBC Hgb Hct MCV MCH RDW Plt Count Lymph % (Auto) [place] % (Auto) Eos % (Auto) [place] # Seg Neutrophils % Seg Neuts % (Manual) Lymphocytes % (Manual) Seg Neutrophils # Seg Neutrophils # Man Lymphocytes # (Manual) APTT POC ABG pH ABG pH POC ABG pCO2 POC ABG pO2 ABG pO2 ABG HCO3 ABG Base Excess ABG Hemoglobin VBG pH Oxyhemoglobin Sodium Potassium Chloride Carbon Dioxide BUN Creatinine Glucose POC Glucose 207 H 219 H 231 H Lactic Acid Calcium AST ALT Alkaline Phosphatase CK-MB (CK-2) CK-MB (CK-2) Rel Index Total Protein Albumin TSH Urine WBC (Auto) Salicylates 02/13/17 02/13/17 02/14/17 17:12 23:44 05:44 WBC RBC Hgb Hct MCV MCH RDW Plt Count Lymph % (Auto) [place] % (Auto) Eos % (Auto) [place] # Seg Neutrophils % Seg Neuts % (Manual) Lymphocytes % (Manual) Seg Neutrophils # Seg Neutrophils # Man Lymphocytes # (Manual) APTT POC ABG pH ABG pH POC ABG pCO2 POC ABG pO2 ABG pO2 ABG HCO3 ABG Base Excess ABG Hemoglobin VBG pH Oxyhemoglobin Sodium Potassium Chloride Carbon Dioxide BUN Creatinine Glucose POC Glucose 190 H 256 H 184 H Lactic Acid Calcium AST ALT Alkaline Phosphatase CK-MB (CK-2) CK-MB (CK-2) Rel Index Total Protein Albumin TSH Urine WBC (Auto) Salicylates 02/14/17 02/14/1702/14/17 12:21 17:57 23:18 WBC RBC Hgb Hct MCV MCH RDW Plt Count Lymph % (Auto) [place] % (Auto) Eos % (Auto) [place] # Seg Neutrophils % Seg Neuts % (Manual) Lymphocytes % (Manual) Seg Neutrophils # Seg Neutrophils # Man Lymphocytes # (Manual) APTT POC ABG pH ABG pH POC ABG pCO2 POC ABG pO2 ABG pO2 ABG HCO3 ABG Base Excess ABG Hemoglobin VBG pH Oxyhemoglobin Sodium Potassium Chloride Carbon Dioxide BUN Creatinine Glucose POC Glucose 233 H 155 H 165 H Lactic Acid Calcium AST ALT Alkaline Phosphatase CK-MB (CK-2) CK-MB (CK-2) Rel Index Total Protein Albumin TSH Urine WBC (Auto) Salicylates 02/15/17 02/15/17 02/15/17 05:33 11:45 17:20 WBC RBC Hgb Hct MCV MCH RDW Plt Count Lymph % (Auto) [place] % (Auto) Eos % (Auto) [place] # Seg Neutrophils % Seg Neuts % (Manual) Lymphocytes % (Manual) Seg Neutrophils # Seg Neutrophils # Man Lymphocytes # (Manual) APTT POC ABG pH ABG pH POC ABG pCO2 POC ABG pO2 ABG pO2 ABG HCO3 ABG Base Excess ABG Hemoglobin VBG pH Oxyhemoglobin Sodium Potassium Chloride Carbon Dioxide BUN Creatinine Glucose POC Glucose 239 H 130 H 189 H Lactic Acid Calcium AST ALT Alkaline Phosphatase CK-MB (CK-2) CK-MB (CK-2) Rel Index Total Protein Albumin TSH Urine WBC (Auto) Salicylates 02/16/17 02/16/17 02/16/17 00:14 05:09 12:31 WBC RBC Hgb Hct MCV MCH RDW Plt Count Lymph % (Auto) [place] % (Auto) Eos % (Auto) [place] # Seg Neutrophils % Seg Neuts % (Manual) Lymphocytes % (Manual) Seg Neutrophils # Seg Neutrophils # Man Lymphocytes # (Manual) APTT POC ABG pH ABG pH POC ABG pCO2 POC ABG pO2 ABG pO2 ABG HCO3 ABG Base Excess ABG Hemoglobin VBG pH Oxyhemoglobin Sodium Potassium Chloride Carbon Dioxide BUN Creatinine Glucose POC Glucose 197 H 226 H 178 H Lactic Acid Calcium AST ALT Alkaline Phosphatase CK-MB (CK-2) CK-MB (CK-2) Rel Index Total Protein Albumin TSH Urine WBC (Auto) Salicylates 02/16/17 02/16/17 02/17/17 16:35 23:49 05:37 WBC RBC Hgb Hct MCV MCH RDW Plt Count Lymph % (Auto) [place] % (Auto) Eos % (Auto) [place] # Seg Neutrophils % Seg Neuts % (Manual) Lymphocytes % (Manual) Seg Neutrophils # Seg Neutrophils # Man Lymphocytes # (Manual) APTT POC ABG pH ABG pH POC ABG pCO2 POC ABG pO2 ABG pO2 ABG HCO3 ABG Base Excess ABG Hemoglobin VBG pH Oxyhemoglobin Sodium Potassium Chloride Carbon Dioxide BUN Creatinine Glucose POC Glucose 174 H 62 L 153 H Lactic Acid Calcium AST ALT Alkaline Phosphatase CK-MB (CK-2) CK-MB (CK-2) Rel Index Total Protein Albumin TSH Urine WBC (Auto) Salicylates 02/17/17 02/17/17 02/17/17 11:39 17:02 22:24 WBC RBC Hgb Hct MCV MCH RDW Plt Count Lymph % (Auto) [place] % (Auto) Eos % (Auto) [place] # Seg Neutrophils % Seg Neuts % (Manual) Lymphocytes % (Manual) Seg Neutrophils # Seg Neutrophils # Man Lymphocytes # (Manual) APTT POC ABG pH ABG pH POC ABG pCO2 POC ABG pO2 ABG pO2 ABG HCO3 ABG Base Excess ABG Hemoglobin VBG pH Oxyhemoglobin Sodium Potassium Chloride Carbon Dioxide BUN Creatinine Glucose POC Glucose 231 H 112 H 116 H Lactic Acid Calcium AST ALT Alkaline Phosphatase CK-MB (CK-2) CK-MB (CK-2) Rel Index Total Protein Albumin TSH Urine WBC (Auto) Salicylates 02/18/17 02/19/17 02/19/17 15:34 05:09 07:57 WBC RBC Hgb Hct MCV MCH RDW Plt Count Lymph % (Auto) [place] % (Auto) Eos % (Auto) [place] # Seg Neutrophils % Seg Neuts % (Manual) Lymphocytes % (Manual) Seg Neutrophils # Seg Neutrophils # Man Lymphocytes # (Manual) APTT POC ABG pH ABG pH POC ABG pCO2 POC ABG pO2 ABG pO2 ABG HCO3 ABG Base Excess ABG Hemoglobin VBG pH Oxyhemoglobin Sodium Potassium Chloride Carbon Dioxide BUN Creatinine Glucose POC Glucose 215 H 218 H 283 H Lactic Acid Calcium AST ALT Alkaline Phosphatase CK-MB (CK-2) CK-MB (CK-2) Rel Index Total Protein Albumin TSH Urine WBC (Auto) Salicylates 02/19/17 02/19/17 02/20/17 14:49 22:10 05:10 WBC RBC Hgb Hct MCV MCH RDW Plt Count Lymph % (Auto) [place] % (Auto) Eos % (Auto) [place] # Seg Neutrophils % Seg Neuts % (Manual) Lymphocytes % (Manual) Seg Neutrophils # Seg Neutrophils # Man Lymphocytes # (Manual) APTT POC ABG pH ABG pH POC ABG pCO2 POC ABG pO2 ABG pO2 ABG HCO3 ABG Base Excess ABG Hemoglobin VBG pH Oxyhemoglobin Sodium Potassium Chloride Carbon Dioxide BUN Creatinine Glucose POC Glucose 290 H 169 H 209 H Lactic Acid Calcium AST ALT Alkaline Phosphatase CK-MB (CK-2) CK-MB (CK-2) Rel Index Total Protein Albumin TSH Urine WBC (Auto) Salicylates 02/20/17 02/20/17 02/21/17 15:05 21:52 02:00 WBC RBC Hgb Hct MCV MCH RDW Plt Count Lymph % (Auto) [place] % (Auto) Eos % (Auto) [place] # Seg Neutrophils % Seg Neuts % (Manual) Lymphocytes % (Manual) Seg Neutrophils # Seg Neutrophils # Man Lymphocytes # (Manual) APTT POC ABG pH ABG pH POC ABG pCO2 POC ABG pO2 ABG pO2 ABG HCO3 ABG Base Excess ABG Hemoglobin VBG pH Oxyhemoglobin Sodium Potassium Chloride Carbon Dioxide BUN Creatinine Glucose POC Glucose 172 H 209 H 216 H Lactic Acid Calcium AST ALT Alkaline Phosphatase CK-MB (CK-2) CK-MB (CK-2) Rel Index Total Protein Albumin TSH Urine WBC (Auto) Salicylates 02/21/17 02/21/17 02/21/17 04:54 14:43 17:47 WBC RBC Hgb Hct MCV MCH RDW Plt Count Lymph % (Auto) [place] % (Auto) Eos % (Auto) [place] # Seg Neutrophils % Seg Neuts % (Manual) Lymphocytes % (Manual) Seg Neutrophils # Seg Neutrophils # Man Lymphocytes # (Manual) APTT POC ABG pH ABG pH POC ABG pCO2 POC ABG pO2 ABG pO2 ABG HCO3 ABG Base Excess ABG Hemoglobin VBG pH Oxyhemoglobin Sodium Potassium Chloride Carbon Dioxide BUN Creatinine Glucose POC Glucose 227 H 290 H 220 H Lactic Acid Calcium AST ALT Alkaline Phosphatase CK-MB (CK-2) CK-MB (CK-2) Rel Index Total Protein Albumin TSH Urine WBC (Auto) Salicylates 02/21/17 02/22/17 02/22/17 22:02 04:52 15:25 WBC RBC Hgb Hct MCV MCH RDW Plt Count Lymph % (Auto) [place] % (Auto) Eos % (Auto) [place] # Seg Neutrophils % Seg Neuts % (Manual) Lymphocytes % (Manual) Seg Neutrophils # Seg Neutrophils # Man Lymphocytes # (Manual) APTT POC ABG pH ABG pH POC ABG pCO2 POC ABG pO2 ABG pO2 ABG HCO3 ABG Base Excess ABG Hemoglobin VBG pH Oxyhemoglobin Sodium Potassium Chloride Carbon Dioxide BUN Creatinine Glucose POC Glucose 246 H 212 H 236 H Lactic Acid Calcium AST ALT Alkaline Phosphatase CK-MB (CK-2) CK-MB (CK-2) Rel Index Total Protein Albumin TSH Urine WBC (Auto) Salicylates 02/22/17 02/23/17 02/23/17 21:33 06:04 10:00 WBC RBC Hgb Hct MCV MCH RDW Plt Count Lymph % (Auto) [place] % (Auto) Eos % (Auto) [place] # Seg Neutrophils % Seg Neuts % (Manual) Lymphocytes % (Manual) Seg Neutrophils # Seg Neutrophils # Man Lymphocytes # (Manual) APTT POC ABG pH ABG pH POC ABG pCO2 POC ABG pO2 ABG pO2 ABG HCO3 ABG Base Excess ABG Hemoglobin VBG pH Oxyhemoglobin Sodium Potassium Chloride Carbon Dioxide BUN Creatinine Glucose POC Glucose 255 H 208 H 174 H Lactic Acid Calcium AST ALT Alkaline Phosphatase CK-MB (CK-2) CK-MB (CK-2) Rel Index Total Protein Albumin TSH Urine WBC (Auto) Salicylates 02/23/17 02/23/17 02/23/17 12:52 17:15 21:51 WBC RBC Hgb Hct MCV MCH RDW Plt Count Lymph % (Auto) [place] % (Auto) Eos % (Auto) [place] # Seg Neutrophils % Seg Neuts % (Manual) Lymphocytes % (Manual) Seg Neutrophils # Seg Neutrophils # Man Lymphocytes # (Manual) APTT POC ABG pH ABG pH POC ABG pCO2 POC ABG pO2 ABG pO2 ABG HCO3 ABG Base Excess ABG Hemoglobin VBG pH Oxyhemoglobin Sodium Potassium Chloride Carbon Dioxide BUN Creatinine Glucose POC Glucose 203 H 269 H 205 H Lactic Acid Calcium AST ALT Alkaline Phosphatase CK-MB (CK-2) CK-MB (CK-2) Rel Index Total Protein Albumin TSH Urine WBC (Auto) Salicylates 02/24/17 02/24/17 02/24/17 10:23 17:45 21:24 WBC RBC Hgb Hct MCV MCH RDW Plt Count Lymph % (Auto) [place] % (Auto) Eos % (Auto) [place] # Seg Neutrophils % Seg Neuts % (Manual) Lymphocytes % (Manual) Seg Neutrophils # Seg Neutrophils # Man Lymphocytes # (Manual) APTT POC ABG pH ABG pH POC ABG pCO2 POC ABG pO2 ABG pO2 ABG HCO3 ABG Base Excess ABG Hemoglobin VBG pH Oxyhemoglobin Sodium Potassium Chloride Carbon Dioxide BUN Creatinine Glucose POC Glucose 280 H 239 H 254 H Lactic Acid Calcium AST ALT Alkaline Phosphatase CK-MB (CK-2) CK-MB (CK-2) Rel Index Total Protein Albumin TSH Urine WBC (Auto) Salicylates 02/25/17 02/25/17 02/25/17 02:12 05:17 14:32 WBC RBC Hgb Hct MCV MCH RDW Plt Count Lymph % (Auto) [place] % (Auto) Eos % (Auto) [place] # Seg Neutrophils % Seg Neuts % (Manual) Lymphocytes % (Manual) Seg Neutrophils # Seg Neutrophils # Man Lymphocytes # (Manual) APTT POC ABG pH ABG pH POC ABG pCO2 POC ABG pO2 ABG pO2 ABG HCO3 ABG Base Excess ABG Hemoglobin VBG pH Oxyhemoglobin Sodium Potassium Chloride Carbon Dioxide BUN Creatinine Glucose POC Glucose 296 H 332 H 353 H Lactic Acid Calcium AST ALT Alkaline Phosphatase CK-MB (CK-2) CK-MB (CK-2) Rel Index Total Protein Albumin TSH Urine WBC (Auto) Salicylates 02/25/17 02/26/17 02/26/17 22:14 00:37 05:52 WBC RBC Hgb Hct MCV MCH RDW Plt Count Lymph % (Auto) [place] % (Auto) Eos % (Auto) [place] # Seg Neutrophils % Seg Neuts % (Manual) Lymphocytes % (Manual) Seg Neutrophils # Seg Neutrophils # Man Lymphocytes # (Manual) APTT POC ABG pH ABG pH POC ABG pCO2 POC ABG pO2 ABG pO2 ABG HCO3 ABG Base Excess ABG Hemoglobin VBG pH Oxyhemoglobin Sodium Potassium Chloride Carbon Dioxide BUN Creatinine Glucose POC Glucose 201 H 233 H 269 H Lactic Acid Calcium AST ALT Alkaline Phosphatase CK-MB (CK-2) CK-MB (CK-2) Rel Index Total Protein Albumin TSH Urine WBC (Auto) Salicylates 02/26/17 02/26/17 02/26/17 11:48 13:49 21:26 WBC RBC Hgb Hct MCV MCH RDW Plt Count Lymph % (Auto) [place] % (Auto) Eos % (Auto) [place] # Seg Neutrophils % Seg Neuts % (Manual) Lymphocytes % (Manual) Seg Neutrophils # Seg Neutrophils # Man Lymphocytes # (Manual) APTT POC ABG pH ABG pH POC ABG pCO2 POC ABG pO2 ABG pO2 ABG HCO3 ABG Base Excess ABG Hemoglobin VBG pH Oxyhemoglobin Sodium Potassium Chloride Carbon Dioxide BUN Creatinine Glucose POC Glucose 333 H 322 H 244 H Lactic Acid Calcium AST ALT Alkaline Phosphatase CK-MB (CK-2) CK-MB (CK-2) Rel Index Total Protein Albumin TSH Urine WBC (Auto) Salicylates 02/27/17 02/27/17 02/27/17 05:27 13:51 21:48 WBC RBC Hgb Hct MCV MCH RDW Plt Count Lymph % (Auto) [place] % (Auto) Eos % (Auto) [place] # Seg Neutrophils % Seg Neuts % (Manual) Lymphocytes % (Manual) Seg Neutrophils # Seg Neutrophils # Man Lymphocytes # (Manual) APTT POC ABG pH ABG pH POC ABG pCO2 POC ABG pO2 ABG pO2 ABG HCO3 ABG Base Excess ABG Hemoglobin VBG pH Oxyhemoglobin Sodium Potassium Chloride Carbon Dioxide BUN Creatinine Glucose POC Glucose 217 H 239 H 254 H Lactic Acid Calcium AST ALT Alkaline Phosphatase CK-MB (CK-2) CK-MB (CK-2) Rel Index Total Protein Albumin TSH Urine WBC (Auto) Salicylates 02/28/17 02/28/17 02/28/17 05:38 11:00 19:44 WBC RBC Hgb Hct MCV MCH RDW Plt Count Lymph % (Auto) [place] % (Auto) Eos % (Auto) [place] # Seg Neutrophils % Seg Neuts % (Manual) Lymphocytes % (Manual) Seg Neutrophils # Seg Neutrophils # Man Lymphocytes # (Manual) APTT POC ABG pH ABG pH POC ABG pCO2 POC ABG pO2 ABG pO2 ABG HCO3 ABG Base Excess ABG Hemoglobin VBG pH Oxyhemoglobin Sodium Potassium Chloride Carbon Dioxide BUN Creatinine Glucose POC Glucose 325 H 203 H 116 H Lactic Acid Calcium AST ALT Alkaline Phosphatase CK-MB (CK-2) CK-MB (CK-2) Rel Index Total Protein Albumin TSH Urine WBC (Auto) Salicylates 03/01/17 03/01/17 03/01/17 00:08 05:31 12:17 WBC RBC Hgb Hct MCV MCH RDW Plt Count Lymph % (Auto) [place] % (Auto) Eos % (Auto) [place] # Seg Neutrophils % Seg Neuts % (Manual) Lymphocytes % (Manual) Seg Neutrophils # Seg Neutrophils # Man Lymphocytes # (Manual) APTT POC ABG pH ABG pH POC ABG pCO2 POC ABG pO2 ABG pO2 ABG HCO3 ABG Base Excess ABG Hemoglobin VBG pH Oxyhemoglobin Sodium Potassium Chloride Carbon Dioxide BUN Creatinine Glucose POC Glucose 202 H 183 H 184 H Lactic Acid Calcium AST ALT Alkaline Phosphatase CK-MB (CK-2) CK-MB (CK-2) Rel Index Total Protein Albumin TSH Urine WBC (Auto) Salicylates 03/02/17 03/02/17 03/02/17 00:12 05:58 18:22 WBC RBC Hgb Hct MCV MCH RDW Plt Count Lymph % (Auto) [place] % (Auto) Eos % (Auto) [place] # Seg Neutrophils % Seg Neuts % (Manual) Lymphocytes % (Manual) Seg Neutrophils # Seg Neutrophils # Man Lymphocytes # (Manual) APTT POC ABG pH ABG pH POC ABG pCO2 POC ABG pO2 ABG pO2 ABG HCO3 ABG Base Excess ABG Hemoglobin VBG pH Oxyhemoglobin Sodium Potassium Chloride Carbon Dioxide BUN Creatinine Glucose POC Glucose 117 H 176 H 156 H Lactic Acid Calcium AST ALT Alkaline Phosphatase CK-MB (CK-2) CK-MB (CK-2) Rel Index Total Protein Albumin TSH Urine WBC (Auto) Salicylates 03/02/17 03/03/17 03/03/17 23:51 05:44 11:32 WBC RBC Hgb Hct MCV MCH RDW Plt Count Lymph % (Auto) [place] % (Auto) Eos % (Auto) [place] # Seg Neutrophils % Seg Neuts % (Manual) Lymphocytes % (Manual) Seg Neutrophils # Seg Neutrophils # Man Lymphocytes # (Manual) APTT POC ABG pH ABG pH POC ABG pCO2 POC ABG pO2 ABG pO2 ABG HCO3 ABG Base Excess ABG Hemoglobin VBG pH Oxyhemoglobin Sodium Potassium Chloride Carbon Dioxide BUN Creatinine Glucose POC Glucose 211 H 117 H 133 H Lactic Acid Calcium AST ALT Alkaline Phosphatase CK-MB (CK-2) CK-MB (CK-2) Rel Index Total Protein Albumin TSH Urine WBC (Auto) Salicylates 03/03/17 03/03/17 03/04/17 17:43 23:17 05:30 WBC RBC Hgb Hct MCV MCH RDW Plt Count Lymph % (Auto) [place] % (Auto) Eos % (Auto) [place] # Seg Neutrophils % Seg Neuts % (Manual) Lymphocytes % (Manual) Seg Neutrophils # Seg Neutrophils # Man Lymphocytes # (Manual) APTT POC ABG pH ABG pH POC ABG pCO2 POC ABG pO2 ABG pO2 ABG HCO3 ABG Base Excess ABG Hemoglobin VBG pH Oxyhemoglobin Sodium Potassium Chloride Carbon Dioxide BUN Creatinine Glucose POC Glucose 206 H 170 H 126 H Lactic Acid Calcium AST ALT Alkaline Phosphatase CK-MB (CK-2) CK-MB (CK-2) Rel Index Total Protein Albumin TSH Urine WBC (Auto) Salicylates 03/04/17 03/04/17 03/05/17 12:17 17:27 05:20 WBC RBC Hgb Hct MCV MCH RDW Plt Count Lymph % (Auto) [place] % (Auto) Eos % (Auto) [place] # Seg Neutrophils % Seg Neuts % (Manual) Lymphocytes % (Manual) Seg Neutrophils # Seg Neutrophils # Man Lymphocytes # (Manual) APTT POC ABG pH ABG pH POC ABG pCO2 POC ABG pO2 ABG pO2 ABG HCO3 ABG Base Excess ABG Hemoglobin VBG pH Oxyhemoglobin Sodium Potassium Chloride Carbon Dioxide BUN Creatinine Glucose POC Glucose 135 H 121 H 185 H Lactic Acid Calcium AST ALT Alkaline Phosphatase CK-MB (CK-2) CK-MB (CK-2) Rel Index Total Protein Albumin TSH Urine WBC (Auto) Salicylates 03/05/17 03/06/17 03/06/17 11:50 11:52 17:34 WBC RBC Hgb Hct MCV MCH RDW Plt Count Lymph % (Auto) [place] % (Auto) Eos % (Auto) [place] # Seg Neutrophils % Seg Neuts % (Manual) Lymphocytes % (Manual) Seg Neutrophils # Seg Neutrophils # Man Lymphocytes # (Manual) APTT POC ABG pH ABG pH POC ABG pCO2 POC ABG pO2 ABG pO2 ABG HCO3 ABG Base Excess ABG Hemoglobin VBG pH Oxyhemoglobin Sodium Potassium Chloride Carbon Dioxide BUN Creatinine Glucose POC Glucose 116 H 133 H 181 H Lactic Acid Calcium AST ALT Alkaline Phosphatase CK-MB (CK-2) CK-MB (CK-2) Rel Index Total Protein Albumin TSH Urine WBC (Auto) Salicylates 03/07/17 03/07/17 03/07/17 05:21 11:36 17:49 WBC RBC Hgb Hct MCV MCH RDW Plt Count Lymph % (Auto) [place] % (Auto) Eos % (Auto) [place] # Seg Neutrophils % Seg Neuts % (Manual) Lymphocytes % (Manual) Seg Neutrophils # Seg Neutrophils # Man Lymphocytes # (Manual) APTT POC ABG pH ABG pH POC ABG pCO2 POC ABG pO2 ABG pO2 ABG HCO3 ABG Base Excess ABG Hemoglobin VBG pH Oxyhemoglobin Sodium Potassium Chloride Carbon Dioxide BUN Creatinine Glucose POC Glucose 159 H 137 H 158 H Lactic Acid Calcium AST ALT Alkaline Phosphatase CK-MB (CK-2) CK-MB (CK-2) Rel Index Total Protein Albumin TSH Urine WBC (Auto) Salicylates 03/08/17 03/08/17 03/08/17 05:51 13:58 23:50 WBC RBC Hgb Hct MCV MCH RDW Plt Count Lymph % (Auto) [place] % (Auto) Eos % (Auto) [place] # Seg Neutrophils % Seg Neuts % (Manual) Lymphocytes % (Manual) Seg Neutrophils # Seg Neutrophils # Man Lymphocytes # (Manual) APTT POC ABG pH ABG pH POC ABG pCO2 POC ABG pO2 ABG pO2 ABG HCO3 ABG Base Excess ABG Hemoglobin VBG pH Oxyhemoglobin Sodium Potassium Chloride Carbon Dioxide BUN Creatinine Glucose POC Glucose 122 H 182 H 114 H Lactic Acid Calcium AST ALT Alkaline Phosphatase CK-MB (CK-2) CK-MB (CK-2) Rel Index Total Protein Albumin TSH Urine WBC (Auto) Salicylates 03/09/17 03/09/17 03/09/17 05:21 05:51 05:51 WBC RBC 3.61 L Hgb 9.5 L Hct 28.3 L MCV 79 L MCH 26 L RDW 17.8 H Plt Count Lymph % (Auto) [place] % (Auto) Eos % (Auto) [place] # Seg Neutrophils % Seg Neuts % (Manual) Lymphocytes % (Manual) Seg Neutrophils # Seg Neutrophils # Man Lymphocytes # (Manual) APTT POC ABG pH ABG pH POC ABG pCO2 POC ABG pO2 ABG pO2 ABG HCO3 ABG Base Excess ABG Hemoglobin VBG pH Oxyhemoglobin Sodium 134 L Potassium Chloride 95.5 L Carbon Dioxide BUN 33 H Creatinine 0.5 L Glucose 143 H POC Glucose 153 H Lactic Acid Calcium AST ALT Alkaline Phosphatase CK-MB (CK-2) CK-MB (CK-2) Rel Index Total Protein Albumin TSH Urine WBC (Auto) Salicylates 03/09/17 03/09/17 03/09/17 12:10 18:13 21:00 WBC RBC Hgb Hct MCV MCH RDW Plt Count Lymph % (Auto) [place] % (Auto) Eos % (Auto) [place] # Seg Neutrophils % Seg Neuts % (Manual) Lymphocytes % (Manual) Seg Neutrophils # Seg Neutrophils # Man Lymphocytes # (Manual) APTT POC ABG pH ABG pH POC ABG pCO2 POC ABG pO2 ABG pO2 ABG HCO3 ABG Base Excess ABG Hemoglobin VBG pH Oxyhemoglobin Sodium Potassium Chloride Carbon Dioxide BUN Creatinine Glucose POC Glucose 203 H 221 H 198 H Lactic Acid Calcium AST ALT Alkaline Phosphatase CK-MB (CK-2) CK-MB (CK-2) Rel Index Total Protein Albumin TSH Urine WBC (Auto) Salicylates 03/09/17 03/10/17 03/10/17 23:58 05:09 05:09 WBC RBC Hgb 10.3 L Hct 30.5 L MCV 78 L MCH 26 L RDW 17.9 H Plt Count Lymph % (Auto) [place] % (Auto) 10.0 H Eos % (Auto) 6.0 H [place] # Seg Neutrophils % Seg Neuts % (Manual) Lymphocytes % (Manual) Seg Neutrophils # Seg Neutrophils # Man Lymphocytes # (Manual) APTT POC ABG pH ABG pH POC ABG pCO2 POC ABG pO2 ABG pO2 ABG HCO3 ABG Base Excess ABG Hemoglobin VBG pH Oxyhemoglobin Sodium 132 L Potassium Chloride 92.2 L Carbon Dioxide BUN 33 H Creatinine 0.5 L Glucose 50 L POC Glucose 167 H Lactic Acid Calcium AST ALT Alkaline Phosphatase CK-MB (CK-2) CK-MB (CK-2) Rel Index Total Protein Albumin TSH Urine WBC (Auto) Salicylates 03/10/17 03/10/17 03/10/17 05:33 05:34 11:48 WBC RBC Hgb Hct MCV MCH RDW Plt Count Lymph % (Auto) [place] % (Auto) Eos % (Auto) [place] # Seg Neutrophils % Seg Neuts % (Manual) Lymphocytes % (Manual) Seg Neutrophils # Seg Neutrophils # Man Lymphocytes # (Manual) APTT POC ABG pH ABG pH POC ABG pCO2 POC ABG pO2 ABG pO2 ABG HCO3 ABG Base Excess ABG Hemoglobin VBG pH Oxyhemoglobin Sodium Potassium Chloride Carbon Dioxide BUN Creatinine Glucose POC Glucose 52 L 53 L 148 H Lactic Acid Calcium AST ALT Alkaline Phosphatase CK-MB (CK-2) CK-MB (CK-2) Rel Index Total Protein Albumin TSH Urine WBC (Auto) Salicylates 03/10/17 03/10/17 03/11/17 17:53 23:47 05:18 WBC RBC Hgb Hct MCV MCH RDW Plt Count Lymph % (Auto) [place] % (Auto) Eos % (Auto) [place] # Seg Neutrophils % Seg Neuts % (Manual) Lymphocytes % (Manual) Seg Neutrophils # Seg Neutrophils # Man Lymphocytes # (Manual) APTT POC ABG pH ABG pH POC ABG pCO2 POC ABG pO2 ABG pO2 ABG HCO3 ABG Base Excess ABG Hemoglobin VBG pH Oxyhemoglobin Sodium Potassium Chloride Carbon Dioxide BUN Creatinine Glucose POC Glucose 189 H 398 H 126 H Lactic Acid Calcium AST ALT Alkaline Phosphatase CK-MB (CK-2) CK-MB (CK-2) Rel Index Total Protein Albumin TSH Urine WBC (Auto) Salicylates 03/11/17 03/11/17 03/11/17 11:53 17:30 23:10 WBC RBC Hgb Hct MCV MCH RDW Plt Count Lymph % (Auto) [place] % (Auto) Eos % (Auto) [place] # Seg Neutrophils % Seg Neuts % (Manual) Lymphocytes % (Manual) Seg Neutrophils # Seg Neutrophils # Man Lymphocytes # (Manual) APTT POC ABG pH ABG pH POC ABG pCO2 POC ABG pO2 ABG pO2 ABG HCO3 ABG Base Excess ABG Hemoglobin VBG pH Oxyhemoglobin Sodium Potassium Chloride Carbon Dioxide BUN Creatinine Glucose POC Glucose 198 H 142 H 244 H Lactic Acid Calcium AST ALT Alkaline Phosphatase CK-MB (CK-2) CK-MB (CK-2) Rel Index Total Protein Albumin TSH Urine WBC (Auto) Salicylates 03/12/17 03/12/17 03/12/17 04:36 11:49 17:23 WBC RBC Hgb Hct MCV MCH RDW Plt Count Lymph % (Auto) [place] % (Auto) Eos % (Auto) [place] # Seg Neutrophils % Seg Neuts % (Manual) Lymphocytes % (Manual) Seg Neutrophils # Seg Neutrophils # Man Lymphocytes # (Manual) APTT POC ABG pH ABG pH POC ABG pCO2 POC ABG pO2 ABG pO2 ABG HCO3 ABG Base Excess ABG Hemoglobin VBG pH Oxyhemoglobin Sodium Potassium Chloride Carbon Dioxide BUN Creatinine Glucose POC Glucose 205 H 197 H 209 H Lactic Acid Calcium AST ALT Alkaline Phosphatase CK-MB (CK-2) CK-MB (CK-2) Rel Index Total Protein Albumin TSH Urine WBC (Auto) Salicylates 03/12/17 03/13/17 03/13/17 23:51 05:32 11:43 WBC RBC Hgb Hct MCV MCH RDW Plt Count Lymph % (Auto) [place] % (Auto) Eos % (Auto) [place] # Seg Neutrophils % Seg Neuts % (Manual) Lymphocytes % (Manual) Seg Neutrophils # Seg Neutrophils # Man Lymphocytes # (Manual) APTT POC ABG pH ABG pH POC ABG pCO2 POC ABG pO2 ABG pO2 ABG HCO3 ABG Base Excess ABG Hemoglobin VBG pH Oxyhemoglobin Sodium Potassium Chloride Carbon Dioxide BUN Creatinine Glucose POC Glucose 210 H 154 H 164 H Lactic Acid Calcium AST ALT Alkaline Phosphatase CK-MB (CK-2) CK-MB (CK-2) Rel Index Total Protein Albumin TSH Urine WBC (Auto) Salicylates 03/13/17 03/13/17 03/14/17 17:11 23:26 05:42 WBC RBC Hgb Hct MCV MCH RDW Plt Count Lymph % (Auto) [place] % (Auto) Eos % (Auto) [place] # Seg Neutrophils % Seg Neuts % (Manual) Lymphocytes % (Manual) Seg Neutrophils # Seg Neutrophils # Man Lymphocytes # (Manual) APTT POC ABG pH ABG pH POC ABG pCO2 POC ABG pO2 ABG pO2 ABG HCO3 ABG Base Excess ABG Hemoglobin VBG pH Oxyhemoglobin Sodium Potassium Chloride Carbon Dioxide BUN Creatinine Glucose POC Glucose 195 H 240 H 230 H Lactic Acid Calcium AST ALT Alkaline Phosphatase CK-MB (CK-2) CK-MB (CK-2) Rel Index Total Protein Albumin TSH Urine WBC (Auto) Salicylates 03/14/17 03/14/17 03/14/17 14:04 17:34 23:42 WBC RBC Hgb Hct MCV MCH RDW Plt Count Lymph % (Auto) [place] % (Auto) Eos % (Auto) [place] # Seg Neutrophils % Seg Neuts % (Manual) Lymphocytes % (Manual) Seg Neutrophils # Seg Neutrophils # Man Lymphocytes # (Manual) APTT POC ABG pH ABG pH POC ABG pCO2 POC ABG pO2 ABG pO2 ABG HCO3 ABG Base Excess ABG Hemoglobin VBG pH Oxyhemoglobin Sodium Potassium Chloride Carbon Dioxide BUN Creatinine Glucose POC Glucose 227 H 186 H 225 H Lactic Acid Calcium AST ALT Alkaline Phosphatase CK-MB (CK-2) CK-MB (CK-2) Rel Index Total Protein Albumin TSH Urine WBC (Auto) Salicylates 03/15/17 03/15/17 03/15/17 05:21 17:13 21:37 WBC RBC Hgb Hct MCV MCH RDW Plt Count Lymph % (Auto) [place] % (Auto) Eos % (Auto) [place] # Seg Neutrophils % Seg Neuts % (Manual) Lymphocytes % (Manual) Seg Neutrophils # Seg Neutrophils # Man Lymphocytes # (Manual) APTT POC ABG pH ABG pH POC ABG pCO2 POC ABG pO2 ABG pO2 ABG HCO3 ABG Base Excess ABG Hemoglobin VBG pH Oxyhemoglobin Sodium Potassium Chloride Carbon Dioxide BUN Creatinine Glucose POC Glucose 244 H 203 H 216 H Lactic Acid Calcium AST ALT Alkaline Phosphatase CK-MB (CK-2) CK-MB (CK-2) Rel Index Total Protein Albumin TSH Urine WBC (Auto) Salicylates 03/16/17 03/16/17 03/16/17 05:52 18:07 21:54 WBC RBC Hgb Hct MCV MCH RDW Plt Count Lymph % (Auto) [place] % (Auto) Eos % (Auto) [place] # Seg Neutrophils % Seg Neuts % (Manual) Lymphocytes % (Manual) Seg Neutrophils # Seg Neutrophils # Man Lymphocytes # (Manual) APTT POC ABG pH ABG pH POC ABG pCO2 POC ABG pO2 ABG pO2 ABG HCO3 ABG Base Excess ABG Hemoglobin VBG pH Oxyhemoglobin Sodium Potassium Chloride Carbon Dioxide BUN Creatinine Glucose POC Glucose 248 H 254 H 244 H Lactic Acid Calcium AST ALT Alkaline Phosphatase CK-MB (CK-2) CK-MB (CK-2) Rel Index Total Protein Albumin TSH Urine WBC (Auto) Salicylates 03/17/17 03/17/17 03/17/17 07:07 07:42 07:43 WBC RBC Hgb 9.7 L Hct 29.1 L MCV 78 L MCH 26 L RDW 17.4 H Plt Count Lymph % (Auto) [place] % (Auto) Eos % (Auto) [place] # Seg Neutrophils % Seg Neuts % (Manual) Lymphocytes % (Manual) Seg Neutrophils # Seg Neutrophils # Man Lymphocytes # (Manual) APTT POC ABG pH ABG pH POC ABG pCO2 POC ABG pO2 ABG pO2 ABG HCO3 ABG Base Excess ABG Hemoglobin VBG pH Oxyhemoglobin Sodium Potassium Chloride 96.6 L Carbon Dioxide BUN 30 H Creatinine 0.5 L Glucose 251 H POC Glucose 222 H Lactic Acid Calcium AST ALT Alkaline Phosphatase CK-MB (CK-2) CK-MB (CK-2) Rel Index Total Protein Albumin TSH Urine WBC (Auto) Salicylates 03/17/17 03/17/17 03/18/17 14:08 21:20 14:24 WBC RBC Hgb Hct MCV MCH RDW Plt Count Lymph % (Auto) [place] % (Auto) Eos % (Auto) [place] # Seg Neutrophils % Seg Neuts % (Manual) Lymphocytes % (Manual) Seg Neutrophils # Seg Neutrophils # Man Lymphocytes # (Manual) APTT POC ABG pH ABG pH POC ABG pCO2 POC ABG pO2 ABG pO2 ABG HCO3 ABG Base Excess ABG Hemoglobin VBG pH Oxyhemoglobin Sodium Potassium Chloride Carbon Dioxide BUN Creatinine Glucose POC Glucose 281 H 239 H 195 H Lactic Acid Calcium AST ALT Alkaline Phosphatase CK-MB (CK-2) CK-MB (CK-2) Rel Index Total Protein Albumin TSH Urine WBC (Auto) Salicylates 03/18/17 03/19/17 03/19/17 21:37 04:57 14:23 WBC RBC Hgb Hct MCV MCH RDW Plt Count Lymph % (Auto) [place] % (Auto) Eos % (Auto) [place] # Seg Neutrophils % Seg Neuts % (Manual) Lymphocytes % (Manual) Seg Neutrophils # Seg Neutrophils # Man Lymphocytes # (Manual) APTT POC ABG pH ABG pH POC ABG pCO2 POC ABG pO2 ABG pO2 ABG HCO3 ABG Base Excess ABG Hemoglobin VBG pH Oxyhemoglobin Sodium Potassium Chloride Carbon Dioxide BUN Creatinine Glucose POC Glucose 227 H 205 H 277 H Lactic Acid Calcium AST ALT Alkaline Phosphatase CK-MB (CK-2) CK-MB (CK-2) Rel Index Total Protein Albumin TSH Urine WBC (Auto) Salicylates 03/19/17 03/19/17 03/20/17 20:31 21:47 04:55 WBC RBC Hgb Hct MCV MCH RDW Plt Count Lymph % (Auto) [place] % (Auto) Eos % (Auto) [place] # Seg Neutrophils % Seg Neuts % (Manual) Lymphocytes % (Manual) Seg Neutrophils # Seg Neutrophils # Man Lymphocytes # (Manual) APTT POC ABG pH ABG pH POC ABG pCO2 POC ABG pO2 ABG pO2 ABG HCO3 ABG Base Excess ABG Hemoglobin VBG pH Oxyhemoglobin Sodium Potassium Chloride Carbon Dioxide BUN Creatinine Glucose POC Glucose 256 H 270 H 202 H Lactic Acid Calcium AST ALT Alkaline Phosphatase CK-MB (CK-2) CK-MB (CK-2) Rel Index Total Protein Albumin TSH Urine WBC (Auto) Salicylates 03/20/17 03/20/17 03/21/17 14:09 21:40 05:09 WBC RBC Hgb Hct MCV MCH RDW Plt Count Lymph % (Auto) [place] % (Auto) Eos % (Auto) [place] # Seg Neutrophils % Seg Neuts % (Manual) Lymphocytes % (Manual) Seg Neutrophils # Seg Neutrophils # Man Lymphocytes # (Manual) APTT POC ABG pH ABG pH POC ABG pCO2 POC ABG pO2 ABG pO2 ABG HCO3 ABG Base Excess ABG Hemoglobin VBG pH Oxyhemoglobin Sodium Potassium Chloride Carbon Dioxide BUN Creatinine Glucose POC Glucose 200 H 214 H 233 H Lactic Acid Calcium AST ALT Alkaline Phosphatase CK-MB (CK-2) CK-MB (CK-2) Rel Index Total Protein Albumin TSH Urine WBC (Auto) Salicylates 03/21/17 03/21/17 03/22/17 14:06 21:26 05:43 WBC RBC Hgb Hct MCV MCH RDW Plt Count Lymph % (Auto) [place] % (Auto) Eos % (Auto) [place] # Seg Neutrophils % Seg Neuts % (Manual) Lymphocytes % (Manual) Seg Neutrophils # Seg Neutrophils # Man Lymphocytes # (Manual) APTT POC ABG pH ABG pH POC ABG pCO2 POC ABG pO2 ABG pO2 ABG HCO3 ABG Base Excess ABG Hemoglobin VBG pH Oxyhemoglobin Sodium Potassium Chloride Carbon Dioxide BUN Creatinine Glucose POC Glucose 250 H 155 H 251 H Lactic Acid Calcium AST ALT Alkaline Phosphatase CK-MB (CK-2) CK-MB (CK-2) Rel Index Total Protein Albumin TSH Urine WBC (Auto) Salicylates 03/22/17 03/22/17 03/23/17 13:46 21:16 00:23 WBC RBC Hgb Hct MCV MCH RDW Plt Count Lymph % (Auto) [place] % (Auto) Eos % (Auto) [place] # Seg Neutrophils % Seg Neuts % (Manual) Lymphocytes % (Manual) Seg Neutrophils # Seg Neutrophils # Man Lymphocytes # (Manual) APTT POC ABG pH ABG pH POC ABG pCO2 POC ABG pO2 ABG pO2 ABG HCO3 ABG Base Excess ABG Hemoglobin VBG pH Oxyhemoglobin Sodium Potassium Chloride Carbon Dioxide BUN Creatinine Glucose POC Glucose 269 H 197 H 126 H Lactic Acid Calcium AST ALT Alkaline Phosphatase CK-MB (CK-2) CK-MB (CK-2) Rel Index Total Protein Albumin TSH Urine WBC (Auto) Salicylates 03/23/17 03/23/17 03/23/17 05:39 14:06 21:39 WBC RBC Hgb Hct MCV MCH RDW Plt Count Lymph % (Auto) [place] % (Auto) Eos % (Auto) [place] # Seg Neutrophils % Seg Neuts % (Manual) Lymphocytes % (Manual) Seg Neutrophils # Seg Neutrophils # Man Lymphocytes # (Manual) APTT POC ABG pH ABG pH POC ABG pCO2 POC ABG pO2 ABG pO2 ABG HCO3 ABG Base Excess ABG Hemoglobin VBG pH Oxyhemoglobin Sodium Potassium Chloride Carbon Dioxide BUN Creatinine Glucose POC Glucose 234 H 241 H 248 H Lactic Acid Calcium AST ALT Alkaline Phosphatase CK-MB (CK-2) CK-MB (CK-2) Rel Index Total Protein Albumin TSH Urine WBC (Auto) Salicylates 03/24/17 03/24/17 03/25/17 05:06 21:46 05:38 WBC RBC Hgb Hct MCV MCH RDW Plt Count Lymph % (Auto) [place] % (Auto) Eos % (Auto) [place] # Seg Neutrophils % Seg Neuts % (Manual) Lymphocytes % (Manual) Seg Neutrophils # Seg Neutrophils # Man Lymphocytes # (Manual) APTT POC ABG pH ABG pH POC ABG pCO2 POC ABG pO2 ABG pO2 ABG HCO3 ABG Base Excess ABG Hemoglobin VBG pH Oxyhemoglobin Sodium Potassium Chloride Carbon Dioxide BUN Creatinine Glucose POC Glucose 232 H 276 H 242 H Lactic Acid Calcium AST ALT Alkaline Phosphatase CK-MB (CK-2) CK-MB (CK-2) Rel Index Total Protein Albumin TSH Urine WBC (Auto) Salicylates 03/25/17 03/25/17 03/26/17 14:30 23:14 13:53 WBC RBC Hgb Hct MCV MCH RDW Plt Count Lymph % (Auto) [place] % (Auto) Eos % (Auto) [place] # Seg Neutrophils % Seg Neuts % (Manual) Lymphocytes % (Manual) Seg Neutrophils # Seg Neutrophils # Man Lymphocytes # (Manual) APTT POC ABG pH ABG pH POC ABG pCO2 POC ABG pO2 ABG pO2 ABG HCO3 ABG Base Excess ABG Hemoglobin VBG pH Oxyhemoglobin Sodium Potassium Chloride Carbon Dioxide BUN Creatinine Glucose POC Glucose 246 H 208 H 195 H Lactic Acid Calcium AST ALT Alkaline Phosphatase CK-MB (CK-2) CK-MB (CK-2) Rel Index Total Protein Albumin TSH Urine WBC (Auto) Salicylates 03/26/17 03/27/17 03/27/17 21:58 05:18 14:57 WBC RBC Hgb Hct MCV MCH RDW Plt Count Lymph % (Auto) [place] % (Auto) Eos % (Auto) [place] # Seg Neutrophils % Seg Neuts % (Manual) Lymphocytes % (Manual) Seg Neutrophils # Seg Neutrophils # Man Lymphocytes # (Manual) APTT POC ABG pH ABG pH POC ABG pCO2 POC ABG pO2 ABG pO2 ABG HCO3 ABG Base Excess ABG Hemoglobin VBG pH Oxyhemoglobin Sodium Potassium Chloride Carbon Dioxide BUN Creatinine Glucose POC Glucose 241 H 199 H 269 H Lactic Acid Calcium AST ALT Alkaline Phosphatase CK-MB (CK-2) CK-MB (CK-2) Rel Index Total Protein Albumin TSH Urine WBC (Auto) Salicylates 03/27/17 03/28/17 03/28/17 21:33 13:52 21:29 WBC RBC Hgb Hct MCV MCH RDW Plt Count Lymph % (Auto) [place] % (Auto) Eos % (Auto) [place] # Seg Neutrophils % Seg Neuts % (Manual) Lymphocytes % (Manual) Seg Neutrophils # Seg Neutrophils # Man Lymphocytes # (Manual) APTT POC ABG pH ABG pH POC ABG pCO2 POC ABG pO2 ABG pO2 ABG HCO3 ABG Base Excess ABG Hemoglobin VBG pH Oxyhemoglobin Sodium Potassium Chloride Carbon Dioxide BUN Creatinine Glucose POC Glucose 214 H 243 H 286 H Lactic Acid Calcium AST ALT Alkaline Phosphatase CK-MB (CK-2) CK-MB (CK-2) Rel Index Total Protein Albumin TSH Urine WBC (Auto) Salicylates 03/29/17 03/29/17 03/29/17 04:32 04:32 13:58 WBC RBC Hgb 10.6 L Hct 32.9 L MCV 78 L MCH 25 L RDW 17.6 H Plt Count Lymph % (Auto) 38.0 H [place] % (Auto) 9.7 H Eos % (Auto) [place] # Seg Neutrophils % Seg Neuts % (Manual) Lymphocytes % (Manual) Seg Neutrophils # Seg Neutrophils # Man Lymphocytes # (Manual) APTT POC ABG pH ABG pH POC ABG pCO2 POC ABG pO2 ABG pO2 ABG HCO3 ABG Base Excess ABG Hemoglobin VBG pH Oxyhemoglobin Sodium 132 L Potassium Chloride 94.0 L Carbon Dioxide BUN 28 H Creatinine 0.5 L Glucose 236 H POC Glucose 171 H Lactic Acid Calcium AST ALT 71 H Alkaline Phosphatase 391 H CK-MB (CK-2) CK-MB (CK-2) Rel Index Total Protein 8.3 H Albumin 2.9 L TSH Urine WBC (Auto) Salicylates 03/29/17 03/30/17 03/30/17 20:59 06:07 11:52 WBC RBC Hgb Hct MCV MCH RDW Plt Count Lymph % (Auto) [place] % (Auto) Eos % (Auto) [place] # Seg Neutrophils % Seg Neuts % (Manual) Lymphocytes % (Manual) Seg Neutrophils # Seg Neutrophils # Man Lymphocytes # (Manual) APTT POC ABG pH ABG pH POC ABG pCO2 POC ABG pO2 ABG pO2 ABG HCO3 ABG Base Excess ABG Hemoglobin VBG pH Oxyhemoglobin Sodium Potassium Chloride Carbon Dioxide BUN Creatinine Glucose POC Glucose 215 H 259 H 197 H Lactic Acid Calcium AST ALT Alkaline Phosphatase CK-MB (CK-2) CK-MB (CK-2) Rel Index Total Protein Albumin TSH Urine WBC (Auto) Salicylates 03/30/17 03/31/17 03/31/17 21:34 05:42 14:34 WBC RBC Hgb Hct MCV MCH RDW Plt Count Lymph % (Auto) [place] % (Auto) Eos % (Auto) [place] # Seg Neutrophils % Seg Neuts % (Manual) Lymphocytes % (Manual) Seg Neutrophils # Seg Neutrophils # Man Lymphocytes # (Manual) APTT POC ABG pH ABG pH POC ABG pCO2 POC ABG pO2 ABG pO2 ABG HCO3 ABG Base Excess ABG Hemoglobin VBG pH Oxyhemoglobin Sodium Potassium Chloride Carbon Dioxide BUN Creatinine Glucose POC Glucose 207 H 184 H 213 H Lactic Acid Calcium AST ALT Alkaline Phosphatase CK-MB (CK-2) CK-MB (CK-2) Rel Index Total Protein Albumin TSH Urine WBC (Auto) Salicylates 03/31/17 04/01/17 04/01/17 21:32 05:53 13:48 WBC RBC Hgb Hct MCV MCH RDW Plt Count Lymph % (Auto) [place] % (Auto) Eos % (Auto) [place] # Seg Neutrophils % Seg Neuts % (Manual) Lymphocytes % (Manual) Seg Neutrophils # Seg Neutrophils # Man Lymphocytes # (Manual) APTT POC ABG pH ABG pH POC ABG pCO2 POC ABG pO2 ABG pO2 ABG HCO3 ABG Base Excess ABG Hemoglobin VBG pH Oxyhemoglobin Sodium Potassium Chloride Carbon Dioxide BUN Creatinine Glucose POC Glucose 249 H 225 H 256 H Lactic Acid Calcium AST ALT Alkaline Phosphatase CK-MB (CK-2) CK-MB (CK-2) Rel Index Total Protein Albumin TSH Urine WBC (Auto) Salicylates 04/01/17 04/02/17 04/02/17 21:34 05:32 14:05 WBC RBC Hgb Hct MCV MCH RDW Plt Count Lymph % (Auto) [place] % (Auto) Eos % (Auto) [place] # Seg Neutrophils % Seg Neuts % (Manual) Lymphocytes % (Manual) Seg Neutrophils # Seg Neutrophils # Man Lymphocytes # (Manual) APTT POC ABG pH ABG pH POC ABG pCO2 POC ABG pO2 ABG pO2 ABG HCO3 ABG Base Excess ABG Hemoglobin VBG pH Oxyhemoglobin Sodium Potassium Chloride Carbon Dioxide BUN Creatinine Glucose POC Glucose 292 H 220 H 187 H Lactic Acid Calcium AST ALT Alkaline Phosphatase CK-MB (CK-2) CK-MB (CK-2) Rel Index Total Protein Albumin TSH Urine WBC (Auto) Salicylates 04/02/17 04/03/17 04/03/17 21:57 04:49 14:12 WBC RBC Hgb Hct MCV MCH RDW Plt Count Lymph % (Auto) [place] % (Auto) Eos % (Auto) [place] # Seg Neutrophils % Seg Neuts % (Manual) Lymphocytes % (Manual) Seg Neutrophils # Seg Neutrophils # Man Lymphocytes # (Manual) APTT POC ABG pH ABG pH POC ABG pCO2 POC ABG pO2 ABG pO2 ABG HCO3 ABG Base Excess ABG Hemoglobin VBG pH Oxyhemoglobin Sodium Potassium Chloride Carbon Dioxide BUN Creatinine Glucose POC Glucose 285 H 256 H 197 H Lactic Acid Calcium AST ALT Alkaline Phosphatase CK-MB (CK-2) CK-MB (CK-2) Rel Index Total Protein Albumin TSH Urine WBC (Auto) Salicylates 04/03/17 04/04/17 04/04/17 21:11 05:20 13:18 WBC RBC Hgb Hct MCV MCH RDW Plt Count Lymph % (Auto) [place] % (Auto) Eos % (Auto) [place] # Seg Neutrophils % Seg Neuts % (Manual) Lymphocytes % (Manual) Seg Neutrophils # Seg Neutrophils # Man Lymphocytes # (Manual) APTT POC ABG pH ABG pH POC ABG pCO2 POC ABG pO2 ABG pO2 ABG HCO3 ABG Base Excess ABG Hemoglobin VBG pH Oxyhemoglobin Sodium Potassium Chloride Carbon Dioxide BUN Creatinine Glucose POC Glucose 166 H 228 H 252 H Lactic Acid Calcium AST ALT Alkaline Phosphatase CK-MB (CK-2) CK-MB (CK-2) Rel Index Total Protein Albumin TSH Urine WBC (Auto) Salicylates 04/04/17 04/05/17 04/05/17 21:51 06:14 09:54 WBC RBC Hgb Hct MCV MCH RDW Plt Count Lymph % (Auto) [place] % (Auto) Eos % (Auto) [place] # Seg Neutrophils % Seg Neuts % (Manual) Lymphocytes % (Manual) Seg Neutrophils # Seg Neutrophils # Man Lymphocytes # (Manual) APTT POC ABG pH ABG pH POC ABG pCO2 POC ABG pO2 ABG pO2 ABG HCO3 ABG Base Excess ABG Hemoglobin VBG pH Oxyhemoglobin Sodium Potassium Chloride Carbon Dioxide BUN Creatinine Glucose POC Glucose 252 H 152 H 181 H Lactic Acid Calcium AST ALT Alkaline Phosphatase CK-MB (CK-2) CK-MB (CK-2) Rel Index Total Protein Albumin TSH Urine WBC (Auto) Salicylates 04/05/17 04/05/17 04/05/17 14:49 17:34 21:38 WBC RBC Hgb Hct MCV MCH RDW Plt Count Lymph % (Auto) [place] % (Auto) Eos % (Auto) [place] # Seg Neutrophils % Seg Neuts % (Manual) Lymphocytes % (Manual) Seg Neutrophils # Seg Neutrophils # Man Lymphocytes # (Manual) APTT POC ABG pH ABG pH POC ABG pCO2 POC ABG pO2 ABG pO2 ABG HCO3 ABG Base Excess ABG Hemoglobin VBG pH Oxyhemoglobin Sodium Potassium Chloride Carbon Dioxide BUN Creatinine Glucose POC Glucose 219 H 268 H 278 H Lactic Acid Calcium AST ALT Alkaline Phosphatase CK-MB (CK-2) CK-MB (CK-2) Rel Index Total Protein Albumin TSH Urine WBC (Auto) Salicylates 04/06/17 04/06/17 04/07/17 15:04 22:14 05:09 WBC RBC Hgb Hct MCV MCH RDW Plt Count Lymph % (Auto) [place] % (Auto) Eos % (Auto) [place] # Seg Neutrophils % Seg Neuts % (Manual) Lymphocytes % (Manual) Seg Neutrophils # Seg Neutrophils # Man Lymphocytes # (Manual) APTT POC ABG pH ABG pH POC ABG pCO2 POC ABG pO2 ABG pO2 ABG HCO3 ABG Base Excess ABG Hemoglobin VBG pH Oxyhemoglobin Sodium Potassium Chloride Carbon Dioxide BUN Creatinine Glucose POC Glucose 285 H 106 H 334 H Lactic Acid Calcium AST ALT Alkaline Phosphatase CK-MB (CK-2) CK-MB (CK-2) Rel Index Total Protein Albumin TSH Urine WBC (Auto) Salicylates 04/07/17 04/07/17 04/08/17 14:45 21:48 05:28 WBC RBC Hgb Hct MCV MCH RDW Plt Count Lymph % (Auto) [place] % (Auto) Eos % (Auto) [place] # Seg Neutrophils % Seg Neuts % (Manual) Lymphocytes % (Manual) Seg Neutrophils # Seg Neutrophils # Man Lymphocytes # (Manual) APTT POC ABG pH ABG pH POC ABG pCO2 POC ABG pO2 ABG pO2 ABG HCO3 ABG Base Excess ABG Hemoglobin VBG pH Oxyhemoglobin Sodium Potassium Chloride Carbon Dioxide BUN Creatinine Glucose POC Glucose 173 H 304 H 314 H Lactic Acid Calcium AST ALT Alkaline Phosphatase CK-MB (CK-2) CK-MB (CK-2) Rel Index Total Protein Albumin TSH Urine WBC (Auto) Salicylates 04/08/17 04/08/17 04/08/17 15:57 16:17 22:21 WBC RBC Hgb Hct MCV MCH RDW Plt Count Lymph % (Auto) [place] % (Auto) Eos % (Auto) [place] # Seg Neutrophils % Seg Neuts % (Manual) Lymphocytes % (Manual) Seg Neutrophils # Seg Neutrophils # Man Lymphocytes # (Manual) APTT POC ABG pH ABG pH POC ABG pCO2 POC ABG pO2 ABG pO2 ABG HCO3 ABG Base Excess ABG Hemoglobin VBG pH Oxyhemoglobin Sodium Potassium Chloride Carbon Dioxide BUN Creatinine Glucose POC Glucose 356 H 337 H 323 H Lactic Acid Calcium AST ALT Alkaline Phosphatase CK-MB (CK-2) CK-MB (CK-2) Rel Index Total Protein Albumin TSH Urine WBC (Auto) Salicylates 04/09/17 04/09/17 04/09/17 06:19 15:30 21:52 WBC RBC Hgb Hct MCV MCH RDW Plt Count Lymph % (Auto) [place] % (Auto) Eos % (Auto) [place] # Seg Neutrophils % Seg Neuts % (Manual) Lymphocytes % (Manual) Seg Neutrophils # Seg Neutrophils # Man Lymphocytes # (Manual) APTT POC ABG pH ABG pH POC ABG pCO2 POC ABG pO2 ABG pO2 ABG HCO3 ABG Base Excess ABG Hemoglobin VBG pH Oxyhemoglobin Sodium Potassium Chloride Carbon Dioxide BUN Creatinine Glucose POC Glucose 340 H 332 H 341 H Lactic Acid Calcium AST ALT Alkaline Phosphatase CK-MB (CK-2) CK-MB (CK-2) Rel Index Total Protein Albumin TSH Urine WBC (Auto) Salicylates 04/10/17 04/10/17 04/10/17 01:53 05:33 17:40 WBC RBC Hgb Hct MCV MCH RDW Plt Count Lymph % (Auto) [place] % (Auto) Eos % (Auto) [place] # Seg Neutrophils % Seg Neuts % (Manual) Lymphocytes % (Manual) Seg Neutrophils # Seg Neutrophils # Man Lymphocytes # (Manual) APTT POC ABG pH ABG pH POC ABG pCO2 POC ABG pO2 ABG pO2 ABG HCO3 ABG Base Excess ABG Hemoglobin VBG pH Oxyhemoglobin Sodium Potassium Chloride Carbon Dioxide BUN Creatinine Glucose POC Glucose 261 H 277 H 304 H Lactic Acid Calcium AST ALT Alkaline Phosphatase CK-MB (CK-2) CK-MB (CK-2) Rel Index Total Protein Albumin TSH Urine WBC (Auto) Salicylates 04/10/17 04/11/17 04/11/17 21:29 05:28 14:02 WBC RBC Hgb Hct MCV MCH RDW Plt Count Lymph % (Auto) [place] % (Auto) Eos % (Auto) [place] # Seg Neutrophils % Seg Neuts % (Manual) Lymphocytes % (Manual) Seg Neutrophils # Seg Neutrophils # Man Lymphocytes # (Manual) APTT POC ABG pH ABG pH POC ABG pCO2 POC ABG pO2 ABG pO2 ABG HCO3 ABG Base Excess ABG Hemoglobin VBG pH Oxyhemoglobin Sodium Potassium Chloride Carbon Dioxide BUN Creatinine Glucose POC Glucose 361 H 204 H 236 H Lactic Acid Calcium AST ALT Alkaline Phosphatase CK-MB (CK-2) CK-MB (CK-2) Rel Index Total Protein Albumin TSH Urine WBC (Auto) Salicylates 04/11/17 04/12/17 04/12/17 21:43 05:00 11:53 WBC RBC Hgb Hct MCV MCH RDW Plt Count Lymph % (Auto) [place] % (Auto) Eos % (Auto) [place] # Seg Neutrophils % Seg Neuts % (Manual) Lymphocytes % (Manual) Seg Neutrophils # Seg Neutrophils # Man Lymphocytes # (Manual) APTT POC ABG pH ABG pH POC ABG pCO2 POC ABG pO2 ABG pO2 ABG HCO3 ABG Base Excess ABG Hemoglobin VBG pH Oxyhemoglobin Sodium Potassium Chloride Carbon Dioxide BUN Creatinine Glucose POC Glucose 287 H 294 H 265 H Lactic Acid Calcium AST ALT Alkaline Phosphatase CK-MB (CK-2) CK-MB (CK-2) Rel Index Total Protein Albumin TSH Urine WBC (Auto) Salicylates 04/12/17 04/12/17 04/13/17 21:21 23:44 06:05 WBC RBC Hgb Hct MCV MCH RDW Plt Count Lymph % (Auto) [place] % (Auto) Eos % (Auto) [place] # Seg Neutrophils % Seg Neuts % (Manual) Lymphocytes % (Manual) Seg Neutrophils # Seg Neutrophils # Man Lymphocytes # (Manual) APTT POC ABG pH ABG pH POC ABG pCO2 POC ABG pO2 ABG pO2 ABG HCO3 ABG Base Excess ABG Hemoglobin VBG pH Oxyhemoglobin Sodium Potassium Chloride Carbon Dioxide BUN Creatinine Glucose POC Glucose 289 H 348 H 326 H Lactic Acid Calcium AST ALT Alkaline Phosphatase CK-MB (CK-2) CK-MB (CK-2) Rel Index Total Protein Albumin TSH Urine WBC (Auto) Salicylates 04/13/17 04/13/17 04/14/17 13:54 21:15 05:49 WBC RBC Hgb Hct MCV MCH RDW Plt Count Lymph % (Auto) [place] % (Auto) Eos % (Auto) [place] # Seg Neutrophils % Seg Neuts % (Manual) Lymphocytes % (Manual) Seg Neutrophils # Seg Neutrophils # Man Lymphocytes # (Manual) APTT POC ABG pH ABG pH POC ABG pCO2 POC ABG pO2 ABG pO2 ABG HCO3 ABG Base Excess ABG Hemoglobin VBG pH Oxyhemoglobin Sodium Potassium Chloride Carbon Dioxide BUN Creatinine Glucose POC Glucose 326 H 263 H 319 H Lactic Acid Calcium AST ALT Alkaline Phosphatase CK-MB (CK-2) CK-MB (CK-2) Rel Index Total Protein Albumin TSH Urine WBC (Auto) Salicylates 04/14/17 04/14/17 04/15/17 13:26 23:13 14:24 WBC RBC Hgb Hct MCV MCH RDW Plt Count Lymph % (Auto) [place] % (Auto) Eos % (Auto) [place] # Seg Neutrophils % Seg Neuts % (Manual) Lymphocytes % (Manual) Seg Neutrophils # Seg Neutrophils # Man Lymphocytes # (Manual) APTT POC ABG pH ABG pH POC ABG pCO2 POC ABG pO2 ABG pO2 ABG HCO3 ABG Base Excess ABG Hemoglobin VBG pH Oxyhemoglobin Sodium Potassium Chloride Carbon Dioxide BUN Creatinine Glucose POC Glucose 207 H 365 H 308 H Lactic Acid Calcium AST ALT Alkaline Phosphatase CK-MB (CK-2) CK-MB (CK-2) Rel Index Total Protein Albumin TSH Urine WBC (Auto) Salicylates 04/15/17 04/15/17 04/15/17 21:00 22:18 23:12 WBC RBC Hgb Hct MCV MCH RDW Plt Count Lymph % (Auto) [place] % (Auto) Eos % (Auto) [place] # Seg Neutrophils % Seg Neuts % (Manual) Lymphocytes % (Manual) Seg Neutrophils # Seg Neutrophils # Man Lymphocytes # (Manual) APTT POC ABG pH ABG pH POC ABG pCO2 POC ABG pO2 ABG pO2 ABG HCO3 ABG Base Excess ABG Hemoglobin VBG pH Oxyhemoglobin Sodium Potassium Chloride Carbon Dioxide BUN Creatinine Glucose POC Glucose 407 H 287 H 325 H Lactic Acid Calcium AST ALT Alkaline Phosphatase CK-MB (CK-2) CK-MB (CK-2) Rel Index Total Protein Albumin TSH Urine WBC (Auto) Salicylates 04/16/17 04/16/17 04/16/17 05:30 10:07 14:26 WBC RBC Hgb Hct MCV MCH RDW Plt Count Lymph % (Auto) [place] % (Auto) Eos % (Auto) [place] # Seg Neutrophils % Seg Neuts % (Manual) Lymphocytes % (Manual) Seg Neutrophils # Seg Neutrophils # Man Lymphocytes # (Manual) APTT POC ABG pH ABG pH POC ABG pCO2 POC ABG pO2 ABG pO2 ABG HCO3 ABG Base Excess ABG Hemoglobin VBG pH Oxyhemoglobin Sodium Potassium Chloride Carbon Dioxide BUN Creatinine Glucose POC Glucose 304 H 217 H 344 H Lactic Acid Calcium AST ALT Alkaline Phosphatase CK-MB (CK-2) CK-MB (CK-2) Rel Index Total Protein Albumin TSH Urine WBC (Auto) Salicylates 04/16/17 04/17/17 04/17/17 21:25 05:12 14:19 WBC RBC Hgb Hct MCV MCH RDW Plt Count Lymph % (Auto) [place] % (Auto) Eos % (Auto) [place] # Seg Neutrophils % Seg Neuts % (Manual) Lymphocytes % (Manual) Seg Neutrophils # Seg Neutrophils # Man Lymphocytes # (Manual) APTT POC ABG pH ABG pH POC ABG pCO2 POC ABG pO2 ABG pO2 ABG HCO3 ABG Base Excess ABG Hemoglobin VBG pH Oxyhemoglobin Sodium Potassium Chloride Carbon Dioxide BUN Creatinine Glucose POC Glucose 305 H 233 H 324 H Lactic Acid Calcium AST ALT Alkaline Phosphatase CK-MB (CK-2) CK-MB (CK-2) Rel Index Total Protein Albumin TSH Urine WBC (Auto) Salicylates 04/17/17 04/18/17 04/18/17 21:42 06:21 14:08 WBC RBC Hgb Hct MCV MCH RDW Plt Count Lymph % (Auto) [place] % (Auto) Eos % (Auto) [place] # Seg Neutrophils % Seg Neuts % (Manual) Lymphocytes % (Manual) Seg Neutrophils # Seg Neutrophils # Man Lymphocytes # (Manual) APTT POC ABG pH ABG pH POC ABG pCO2 POC ABG pO2 ABG pO2 ABG HCO3 ABG Base Excess ABG Hemoglobin VBG pH Oxyhemoglobin Sodium Potassium Chloride Carbon Dioxide BUN Creatinine Glucose POC Glucose 270 H 308 H 290 H Lactic Acid Calcium AST ALT Alkaline Phosphatase CK-MB (CK-2) CK-MB (CK-2) Rel Index Total Protein Albumin TSH Urine WBC (Auto) Salicylates 04/18/17 04/19/17 04/19/17 21:50 05:20 13:59 WBC RBC Hgb Hct MCV MCH RDW Plt Count Lymph % (Auto) [place] % (Auto) Eos % (Auto) [place] # Seg Neutrophils % Seg Neuts % (Manual) Lymphocytes % (Manual) Seg Neutrophils # Seg Neutrophils # Man Lymphocytes # (Manual) APTT POC ABG pH ABG pH POC ABG pCO2 POC ABG pO2 ABG pO2 ABG HCO3 ABG Base Excess ABG Hemoglobin VBG pH Oxyhemoglobin Sodium Potassium Chloride Carbon Dioxide BUN Creatinine Glucose POC Glucose 167 H 372 H 321 H Lactic Acid Calcium AST ALT Alkaline Phosphatase CK-MB (CK-2) CK-MB (CK-2) Rel Index Total Protein Albumin TSH Urine WBC (Auto) Salicylates 04/19/17 04/20/17 04/20/17 21:16 14:18 21:34 WBC RBC Hgb Hct MCV MCH RDW Plt Count Lymph % (Auto) [place] % (Auto) Eos % (Auto) [place] # Seg Neutrophils % Seg Neuts % (Manual) Lymphocytes % (Manual) Seg Neutrophils # Seg Neutrophils # Man Lymphocytes # (Manual) APTT POC ABG pH ABG pH POC ABG pCO2 POC ABG pO2 ABG pO2 ABG HCO3 ABG Base Excess ABG Hemoglobin VBG pH Oxyhemoglobin Sodium Potassium Chloride Carbon Dioxide BUN Creatinine Glucose POC Glucose 182 H 218 H 121 H Lactic Acid Calcium AST ALT Alkaline Phosphatase CK-MB (CK-2) CK-MB (CK-2) Rel Index Total Protein Albumin TSH Urine WBC (Auto) Salicylates 04/21/17 04/21/17 04/21/17 00:08 05:16 12:41 WBC RBC Hgb Hct MCV MCH RDW Plt Count Lymph % (Auto) [place] % (Auto) Eos % (Auto) [place] # Seg Neutrophils % Seg Neuts % (Manual) Lymphocytes % (Manual) Seg Neutrophils # Seg Neutrophils # Man Lymphocytes # (Manual) APTT POC ABG pH ABG pH POC ABG pCO2 POC ABG pO2 ABG pO2 ABG HCO3 ABG Base Excess ABG Hemoglobin VBG pH Oxyhemoglobin Sodium Potassium Chloride Carbon Dioxide BUN Creatinine Glucose POC Glucose 128 H 120 H 216 H Lactic Acid Calcium AST ALT Alkaline Phosphatase CK-MB (CK-2) CK-MB (CK-2) Rel Index Total Protein Albumin TSH Urine WBC (Auto) Salicylates 04/21/17 04/22/17 04/22/17 23:40 14:12 23:38 WBC RBC Hgb Hct MCV MCH RDW Plt Count Lymph % (Auto) [place] % (Auto) Eos % (Auto) [place] # Seg Neutrophils % Seg Neuts % (Manual) Lymphocytes % (Manual) Seg Neutrophils # Seg Neutrophils # Man Lymphocytes # (Manual) APTT POC ABG pH ABG pH POC ABG pCO2 POC ABG pO2 ABG pO2 ABG HCO3 ABG Base Excess ABG Hemoglobin VBG pH Oxyhemoglobin Sodium Potassium Chloride Carbon Dioxide BUN Creatinine Glucose POC Glucose 157 H 242 H 117 H Lactic Acid Calcium AST ALT Alkaline Phosphatase CK-MB (CK-2) CK-MB (CK-2) Rel Index Total Protein Albumin TSH Urine WBC (Auto) Salicylates 04/23/17 04/23/17 04/24/17 05:18 14:01 03:24 WBC RBC Hgb Hct MCV MCH RDW Plt Count Lymph % (Auto) [place] % (Auto) Eos % (Auto) [place] # Seg Neutrophils % Seg Neuts % (Manual) Lymphocytes % (Manual) Seg Neutrophils # Seg Neutrophils # Man Lymphocytes # (Manual) APTT POC ABG pH ABG pH POC ABG pCO2 POC ABG pO2 ABG pO2 ABG HCO3 ABG Base Excess ABG Hemoglobin VBG pH Oxyhemoglobin Sodium Potassium Chloride Carbon Dioxide BUN Creatinine Glucose POC Glucose 163 H 57 L 177 H Lactic Acid Calcium AST ALT Alkaline Phosphatase CK-MB (CK-2) CK-MB (CK-2) Rel Index Total Protein Albumin TSH Urine WBC (Auto) Salicylates 04/24/17 04/24/17 04/24/17 04:00 04:00 06:33 WBC RBC Hgb 9.9 L Hct 30.0 L MCV 79 L MCH 26 L RDW 17.1 H Plt Count 625 H Lymph % (Auto) [place] % (Auto) 8.4 H Eos % (Auto) [place] # Seg Neutrophils % Seg Neuts % (Manual) Lymphocytes % (Manual) Seg Neutrophils # Seg Neutrophils # Man Lymphocytes # (Manual) APTT POC ABG pH ABG pH POC ABG pCO2 POC ABG pO2 ABG pO2 ABG HCO3 ABG Base Excess ABG Hemoglobin VBG pH Oxyhemoglobin Sodium 136 L Potassium Chloride 94.9 L Carbon Dioxide BUN 40 H Creatinine 0.6 L Glucose 176 H POC Glucose 230 H Lactic Acid Calcium AST 67 H ALT Alkaline Phosphatase 294 H CK-MB (CK-2) CK-MB (CK-2) Rel Index Total Protein 9.0 H Albumin 2.5 L TSH Urine WBC (Auto) Salicylates 04/24/17 04/25/17 04/25/17 13:50 00:22 02:55 WBC RBC 3.54 L Hgb 9.0 L Hct 27.9 L MCV 79 L MCH 26 L RDW 17.5 H Plt Count 574 H Lymph % (Auto) [place] % (Auto) 10.4 H Eos % (Auto) [place] # 1.0 H Seg Neutrophils % Seg Neuts % (Manual) Lymphocytes % (Manual) Seg Neutrophils # Seg Neutrophils # Man Lymphocytes # (Manual) APTT POC ABG pH ABG pH POC ABG pCO2 POC ABG pO2 ABG pO2 ABG HCO3 ABG Base Excess ABG Hemoglobin VBG pH Oxyhemoglobin Sodium Potassium Chloride Carbon Dioxide BUN Creatinine Glucose POC Glucose 116 H < 40 L Lactic Acid Calcium AST ALT Alkaline Phosphatase CK-MB (CK-2) CK-MB (CK-2) Rel Index Total Protein Albumin TSH Urine WBC (Auto) Salicylates 04/25/17 04/25/17 04/25/17 02:55 11:15 18:36 WBC RBC Hgb Hct MCV MCH RDW Plt Count Lymph % (Auto) [place] % (Auto) Eos % (Auto) [place] # Seg Neutrophils % Seg Neuts % (Manual) Lymphocytes % (Manual) Seg Neutrophils # Seg Neutrophils # Man Lymphocytes # (Manual) APTT POC ABG pH ABG pH POC ABG pCO2 POC ABG pO2 ABG pO2 ABG HCO3 ABG Base Excess ABG Hemoglobin VBG pH Oxyhemoglobin Sodium Potassium Chloride 96.2 L Carbon Dioxide BUN 39 H Creatinine 0.7 L Glucose 125 H POC Glucose 227 H 280 H Lactic Acid Calcium AST ALT Alkaline Phosphatase 247 H CK-MB (CK-2) CK-MB (CK-2) Rel Index Total Protein Albumin 2.7 L TSH Urine WBC (Auto) Salicylates 04/25/17 04/26/17 04/26/17 21:49 06:53 07:27 WBC RBC 3.61 L Hgb 9.1 L Hct 28.1 L MCV 78 L MCH 25 L RDW 17.4 H Plt Count 594 H Lymph % (Auto) [place] % (Auto) 9.2 H Eos % (Auto) [place] # 1.0 H Seg Neutrophils % 70.6 H Seg Neuts % (Manual) Lymphocytes % (Manual) Seg Neutrophils # Seg Neutrophils # Man Lymphocytes # (Manual) APTT POC ABG pH ABG pH POC ABG pCO2 POC ABG pO2 ABG pO2 ABG HCO3 ABG Base Excess ABG Hemoglobin VBG pH Oxyhemoglobin Sodium Potassium Chloride Carbon Dioxide BUN Creatinine Glucose POC Glucose 192 H 60 L Lactic Acid Calcium AST ALT Alkaline Phosphatase CK-MB (CK-2) CK-MB (CK-2) Rel Index Total Protein Albumin TSH Urine WBC (Auto) Salicylates 04/26/17 04/26/17 04/26/17 07:27 07:28 13:32 WBC RBC Hgb Hct MCV MCH RDW Plt Count Lymph % (Auto) [place] % (Auto) Eos % (Auto) [place] # Seg Neutrophils % Seg Neuts % (Manual) Lymphocytes % (Manual) Seg Neutrophils # Seg Neutrophils # Man Lymphocytes # (Manual) APTT POC ABG pH ABG pH POC ABG pCO2 POC ABG pO2 ABG pO2 ABG HCO3 ABG Base Excess ABG Hemoglobin VBG pH Oxyhemoglobin Sodium Potassium Chloride 95.0 L Carbon Dioxide BUN 42 H Creatinine 0.7 L Glucose 172 H POC Glucose 190 H 168 H Lactic Acid Calcium AST 56 H ALT Alkaline Phosphatase 274 H CK-MB (CK-2) CK-MB (CK-2) Rel Index Total Protein 8.9 H Albumin 2.7 L TSH Urine WBC (Auto) Salicylates 04/26/17 04/27/17 04/27/17 23:36 05:10 05:10 WBC RBC 3.49 L Hgb 8.7 L Hct 27.0 L MCV 77 L MCH 25 L RDW 17.4 H Plt Count 558 H Lymph % (Auto) [place] % (Auto) 9.6 H Eos % (Auto) [place] # Seg Neutrophils % Seg Neuts % (Manual) Lymphocytes % (Manual) Seg Neutrophils # Seg Neutrophils # Man Lymphocytes # (Manual) APTT POC ABG pH ABG pH POC ABG pCO2 POC ABG pO2 ABG pO2 ABG HCO3 ABG Base Excess ABG Hemoglobin VBG pH Oxyhemoglobin Sodium 133 L Potassium Chloride 93.5 L Carbon Dioxide BUN 40 H Creatinine 0.7 L Glucose 179 H POC Glucose 204 H Lactic Acid Calcium AST 73 H ALT 58 H Alkaline Phosphatase 294 H CK-MB (CK-2) CK-MB (CK-2) Rel Index Total Protein 8.7 H Albumin 2.4 L TSH Urine WBC (Auto) Salicylates 04/27/17 04/27/17 04/27/17 05:45 14:08 23:46 WBC RBC Hgb Hct MCV MCH RDW Plt Count Lymph % (Auto) [place] % (Auto) Eos % (Auto) [place] # Seg Neutrophils % Seg Neuts % (Manual) Lymphocytes % (Manual) Seg Neutrophils # Seg Neutrophils # Man Lymphocytes # (Manual) APTT POC ABG pH ABG pH POC ABG pCO2 POC ABG pO2 ABG pO2 ABG HCO3 ABG Base Excess ABG Hemoglobin VBG pH Oxyhemoglobin Sodium Potassium Chloride Carbon Dioxide BUN Creatinine Glucose POC Glucose 200 H 206 H 207 H Lactic Acid Calcium AST ALT Alkaline Phosphatase CK-MB (CK-2) CK-MB (CK-2) Rel Index Total Protein Albumin TSH Urine WBC (Auto) Salicylates 04/28/17 04/28/17 04/28/17 04:48 04:53 05:10 WBC RBC 3.48 L Hgb 8.8 L Hct 26.7 L MCV 77 L MCH 25 L RDW 17.0 H Plt Count 515 H Lymph % (Auto) [place] % (Auto) 8.4 H Eos % (Auto) [place] # Seg Neutrophils % 70.6 H Seg Neuts % (Manual) Lymphocytes % (Manual) Seg Neutrophils # Seg Neutrophils # Man Lymphocytes # (Manual) APTT POC ABG pH ABG pH POC ABG pCO2 POC ABG pO2 ABG pO2 ABG HCO3 ABG Base Excess ABG Hemoglobin VBG pH Oxyhemoglobin Sodium Potassium Chloride Carbon Dioxide BUN Creatinine Glucose POC Glucose 43 L 41 L Lactic Acid Calcium AST ALT Alkaline Phosphatase CK-MB (CK-2) CK-MB (CK-2) Rel Index Total Protein Albumin TSH Urine WBC (Auto) Salicylates 04/28/17 04/28/17 04/28/17 05:10 14:06 22:07 WBC RBC Hgb Hct MCV MCH RDW Plt Count Lymph % (Auto) [place] % (Auto) Eos % (Auto) [place] # Seg Neutrophils % Seg Neuts % (Manual) Lymphocytes % (Manual) Seg Neutrophils # Seg Neutrophils # Man Lymphocytes # (Manual) APTT POC ABG pH ABG pH POC ABG pCO2 POC ABG pO2 ABG pO2 ABG HCO3 ABG Base Excess ABG Hemoglobin VBG pH Oxyhemoglobin Sodium 136 L Potassium Chloride 95.2 L Carbon Dioxide BUN 42 H Creatinine Glucose 63 L POC Glucose 303 H 227 H Lactic Acid Calcium AST 45 H ALT Alkaline Phosphatase 271 H CK-MB (CK-2) CK-MB (CK-2) Rel Index Total Protein 8.9 H Albumin 2.5 L TSH Urine WBC (Auto) Salicylates 04/29/17 04/29/17 04/29/17 06:40 14:11 21:35 WBC RBC Hgb Hct MCV MCH RDW Plt Count Lymph % (Auto) [place] % (Auto) Eos % (Auto) [place] # Seg Neutrophils % Seg Neuts % (Manual) Lymphocytes % (Manual) Seg Neutrophils # Seg Neutrophils # Man Lymphocytes # (Manual) APTT POC ABG pH ABG pH POC ABG pCO2 POC ABG pO2 ABG pO2 ABG HCO3 ABG Base Excess ABG Hemoglobin VBG pH Oxyhemoglobin Sodium Potassium Chloride Carbon Dioxide BUN Creatinine Glucose POC Glucose 254 H 244 H 184 H Lactic Acid Calcium AST ALT Alkaline Phosphatase CK-MB (CK-2) CK-MB (CK-2) Rel Index Total Protein Albumin TSH Urine WBC (Auto) Salicylates 04/30/17 04/30/17 04/30/17 05:17 14:03 22:08 WBC RBC Hgb Hct MCV MCH RDW Plt Count Lymph % (Auto) [place] % (Auto) Eos % (Auto) [place] # Seg Neutrophils % Seg Neuts % (Manual) Lymphocytes % (Manual) Seg Neutrophils # Seg Neutrophils # Man Lymphocytes # (Manual) APTT POC ABG pH ABG pH POC ABG pCO2 POC ABG pO2 ABG pO2 ABG HCO3 ABG Base Excess ABG Hemoglobin VBG pH Oxyhemoglobin Sodium Potassium Chloride Carbon Dioxide BUN Creatinine Glucose POC Glucose 173 H 182 H 247 H Lactic Acid Calcium AST ALT Alkaline Phosphatase CK-MB (CK-2) CK-MB (CK-2) Rel Index Total Protein Albumin TSH Urine WBC (Auto) Salicylates 05/01/17 05/01/17 05/01/17 05:04 15:37 18:50 WBC RBC Hgb Hct MCV MCH RDW Plt Count Lymph % (Auto) [place] % (Auto) Eos % (Auto) [place] # Seg Neutrophils % Seg Neuts % (Manual) Lymphocytes % (Manual) Seg Neutrophils # Seg Neutrophils # Man Lymphocytes # (Manual) APTT POC ABG pH ABG pH POC ABG pCO2 POC ABG pO2 ABG pO2 ABG HCO3 ABG Base Excess ABG Hemoglobin VBG pH Oxyhemoglobin Sodium Potassium Chloride Carbon Dioxide BUN Creatinine Glucose POC Glucose 335 H 68 L 144 H Lactic Acid Calcium AST ALT Alkaline Phosphatase CK-MB (CK-2) CK-MB (CK-2) Rel Index Total Protein Albumin TSH Urine WBC (Auto) Salicylates 05/01/17 05/02/17 05/02/17 22:13 04:59 14:06 WBC RBC Hgb Hct MCV MCH RDW Plt Count Lymph % (Auto) [place] % (Auto) Eos % (Auto) [place] # Seg Neutrophils % Seg Neuts % (Manual) Lymphocytes % (Manual) Seg Neutrophils # Seg Neutrophils # Man Lymphocytes # (Manual) APTT POC ABG pH ABG pH POC ABG pCO2 POC ABG pO2 ABG pO2 ABG HCO3 ABG Base Excess ABG Hemoglobin VBG pH Oxyhemoglobin Sodium Potassium Chloride Carbon Dioxide BUN Creatinine Glucose POC Glucose 192 H 225 H 165 H Lactic Acid Calcium AST ALT Alkaline Phosphatase CK-MB (CK-2) CK-MB (CK-2) Rel Index Total Protein Albumin TSH Urine WBC (Auto) Salicylates 05/02/17 05/03/17 05/03/17 21:20 05:16 16:56 WBC RBC Hgb Hct MCV MCH RDW Plt Count Lymph % (Auto) [place] % (Auto) Eos % (Auto) [place] # Seg Neutrophils % Seg Neuts % (Manual) Lymphocytes % (Manual) Seg Neutrophils # Seg Neutrophils # Man Lymphocytes # (Manual) APTT POC ABG pH ABG pH POC ABG pCO2 POC ABG pO2 ABG pO2 ABG HCO3 ABG Base Excess ABG Hemoglobin VBG pH Oxyhemoglobin Sodium Potassium Chloride Carbon Dioxide BUN Creatinine Glucose POC Glucose 181 H 323 H 125 H Lactic Acid Calcium AST ALT Alkaline Phosphatase CK-MB (CK-2) CK-MB (CK-2) Rel Index Total Protein Albumin TSH Urine WBC (Auto) Salicylates 05/03/17 05/04/17 05/04/17 21:46 05:01 14:24 WBC RBC Hgb Hct MCV MCH RDW Plt Count Lymph % (Auto) [place] % (Auto) Eos % (Auto) [place] # Seg Neutrophils % Seg Neuts % (Manual) Lymphocytes % (Manual) Seg Neutrophils # Seg Neutrophils # Man Lymphocytes # (Manual) APTT POC ABG pH ABG pH POC ABG pCO2 POC ABG pO2 ABG pO2 ABG HCO3 ABG Base Excess ABG Hemoglobin VBG pH Oxyhemoglobin Sodium Potassium Chloride Carbon Dioxide BUN Creatinine Glucose POC Glucose 210 H 360 H 219 H Lactic Acid Calcium AST ALT Alkaline Phosphatase CK-MB (CK-2) CK-MB (CK-2) Rel Index Total Protein Albumin TSH Urine WBC (Auto) Salicylates 01/05/05/17 05/05/17 21:39 01:58 05:13 WBC RBC Hgb Hct MCV MCH RDW Plt Count Lymph % (Auto) [place] % (Auto) Eos % (Auto) [place] # Seg Neutrophils % Seg Neuts % (Manual) Lymphocytes % (Manual) Seg Neutrophils # Seg Neutrophils # Man Lymphocytes # (Manual) APTT POC ABG pH ABG pH POC ABG pCO2 POC ABG pO2 ABG pO2 ABG HCO3 ABG Base Excess ABG Hemoglobin VBG pH Oxyhemoglobin Sodium Potassium Chloride Carbon Dioxide BUN Creatinine Glucose POC Glucose 126 H 175 H 267 H Lactic Acid Calcium AST ALT Alkaline Phosphatase CK-MB (CK-2) CK-MB (CK-2) Rel Index Total Protein Albumin TSH Urine WBC (Auto) Salicylates 05/05/17 05/05/17 05/05/17 12:19 14:11 21:18 WBC RBC Hgb Hct MCV MCH RDW Plt Count Lymph % (Auto) [place] % (Auto) Eos % (Auto) [place] # Seg Neutrophils % Seg Neuts % (Manual) Lymphocytes % (Manual) Seg Neutrophils # Seg Neutrophils # Man Lymphocytes # (Manual) APTT POC ABG pH ABG pH POC ABG pCO2 POC ABG pO2 ABG pO2 ABG HCO3 ABG Base Excess ABG Hemoglobin VBG pH Oxyhemoglobin Sodium Potassium Chloride Carbon Dioxide BUN Creatinine Glucose POC Glucose 221 H 205 H 156 H Lactic Acid Calcium AST ALT Alkaline Phosphatase CK-MB (CK-2) CK-MB (CK-2) Rel Index Total Protein Albumin TSH Urine WBC (Auto) Salicylates 05/06/17 05/06/17 05/06/17 06:02 15:26 21:43 WBC RBC Hgb Hct MCV MCH RDW Plt Count Lymph % (Auto) [place] % (Auto) Eos % (Auto) [place] # Seg Neutrophils % Seg Neuts % (Manual) Lymphocytes % (Manual) Seg Neutrophils # Seg Neutrophils # Man Lymphocytes # (Manual) APTT POC ABG pH ABG pH POC ABG pCO2 POC ABG pO2 ABG pO2 ABG HCO3 ABG Base Excess ABG Hemoglobin VBG pH Oxyhemoglobin Sodium Potassium Chloride Carbon Dioxide BUN Creatinine Glucose POC Glucose 263 H 143 H 145 H Lactic Acid Calcium AST ALT Alkaline Phosphatase CK-MB (CK-2) CK-MB (CK-2) Rel Index Total Protein Albumin TSH Urine WBC (Auto) Salicylates 05/07/17 05/07/17 05/07/17 05:52 21:46 21:49 WBC RBC Hgb Hct MCV MCH RDW Plt Count Lymph % (Auto) [place] % (Auto) Eos % (Auto) [place] # Seg Neutrophils % Seg Neuts % (Manual) Lymphocytes % (Manual) Seg Neutrophils # Seg Neutrophils # Man Lymphocytes # (Manual) APTT POC ABG pH ABG pH POC ABG pCO2 POC ABG pO2 ABG pO2 ABG HCO3 ABG Base Excess ABG Hemoglobin VBG pH Oxyhemoglobin Sodium Potassium Chloride Carbon Dioxide BUN Creatinine Glucose POC Glucose 242 H < 40 L < 40 L Lactic Acid Calcium AST ALT Alkaline Phosphatase CK-MB (CK-2) CK-MB (CK-2) Rel Index Total Protein Albumin TSH Urine WBC (Auto) Salicylates 05/07/17 05/08/17 05/09/17 22:41 06:14 00:02 WBC RBC Hgb Hct MCV MCH RDW Plt Count Lymph % (Auto) [place] % (Auto) Eos % (Auto) [place] # Seg Neutrophils % Seg Neuts % (Manual) Lymphocytes % (Manual) Seg Neutrophils # Seg Neutrophils # Man Lymphocytes # (Manual) APTT POC ABG pH ABG pH POC ABG pCO2 POC ABG pO2 ABG pO2 ABG HCO3 ABG Base Excess ABG Hemoglobin VBG pH Oxyhemoglobin Sodium Potassium Chloride Carbon Dioxide BUN Creatinine Glucose POC Glucose 183 H 329 H 130 H Lactic Acid Calcium AST ALT Alkaline Phosphatase CK-MB (CK-2) CK-MB (CK-2) Rel Index Total Protein Albumin TSH Urine WBC (Auto) Salicylates 05/09/17 05/09/17 05/09/17 06:08 14:06 21:44 WBC RBC Hgb Hct MCV MCH RDW Plt Count Lymph % (Auto) [place] % (Auto) Eos % (Auto) [place] # Seg Neutrophils % Seg Neuts % (Manual) Lymphocytes % (Manual) Seg Neutrophils # Seg Neutrophils # Man Lymphocytes # (Manual) APTT POC ABG pH ABG pH POC ABG pCO2 POC ABG pO2 ABG pO2 ABG HCO3 ABG Base Excess ABG Hemoglobin VBG pH Oxyhemoglobin Sodium Potassium Chloride Carbon Dioxide BUN Creatinine Glucose POC Glucose 241 H 251 H 198 H Lactic Acid Calcium AST ALT Alkaline Phosphatase CK-MB (CK-2) CK-MB (CK-2) Rel Index Total Protein Albumin TSH Urine WBC (Auto) Salicylates 05/10/17 05/10/17 05/10/17 05:18 14:44 21:53 WBC RBC Hgb Hct MCV MCH RDW Plt Count Lymph % (Auto) [place] % (Auto) Eos % (Auto) [place] # Seg Neutrophils % Seg Neuts % (Manual) Lymphocytes % (Manual) Seg Neutrophils # Seg Neutrophils # Man Lymphocytes # (Manual) APTT POC ABG pH ABG pH POC ABG pCO2 POC ABG pO2 ABG pO2 ABG HCO3 ABG Base Excess ABG Hemoglobin VBG pH Oxyhemoglobin Sodium Potassium Chloride Carbon Dioxide BUN Creatinine Glucose POC Glucose 166 H 224 H 171 H Lactic Acid Calcium AST ALT Alkaline Phosphatase CK-MB (CK-2) CK-MB (CK-2) Rel Index Total Protein Albumin TSH Urine WBC (Auto) Salicylates 05/11/17 05/11/17 05/11/17 05:45 13:44 21:42 WBC RBC Hgb Hct MCV MCH RDW Plt Count Lymph % (Auto) [place] % (Auto) Eos % (Auto) [place] # Seg Neutrophils % Seg Neuts % (Manual) Lymphocytes % (Manual) Seg Neutrophils # Seg Neutrophils # Man Lymphocytes # (Manual) APTT POC ABG pH ABG pH POC ABG pCO2 POC ABG pO2 ABG pO2 ABG HCO3 ABG Base Excess ABG Hemoglobin VBG pH Oxyhemoglobin Sodium Potassium Chloride Carbon Dioxide BUN Creatinine Glucose POC Glucose 199 H 150 H 163 H Lactic Acid Calcium AST ALT Alkaline Phosphatase CK-MB (CK-2) CK-MB (CK-2) Rel Index Total Protein Albumin TSH Urine WBC (Auto) Salicylates 05/12/17 05/12/17 05/12/17 06:03 13:59 21:22 WBC RBC Hgb Hct MCV MCH RDW Plt Count Lymph % (Auto) [place] % (Auto) Eos % (Auto) [place] # Seg Neutrophils % Seg Neuts % (Manual) Lymphocytes % (Manual) Seg Neutrophils # Seg Neutrophils # Man Lymphocytes # (Manual) APTT POC ABG pH ABG pH POC ABG pCO2 POC ABG pO2 ABG pO2 ABG HCO3 ABG Base Excess ABG Hemoglobin VBG pH Oxyhemoglobin Sodium Potassium Chloride Carbon Dioxide BUN Creatinine Glucose POC Glucose 147 H 243 H 116 H Lactic Acid Calcium AST ALT Alkaline Phosphatase CK-MB (CK-2) CK-MB (CK-2) Rel Index Total Protein Albumin TSH Urine WBC (Auto) Salicylates 05/13/17 05/13/17 05/13/17 05:28 13:49 21:29 WBC RBC Hgb Hct MCV MCH RDW Plt Count Lymph % (Auto) [place] % (Auto) Eos % (Auto) [place] # Seg Neutrophils % Seg Neuts % (Manual) Lymphocytes % (Manual) Seg Neutrophils # Seg Neutrophils # Man Lymphocytes # (Manual) APTT POC ABG pH ABG pH POC ABG pCO2 POC ABG pO2 ABG pO2 ABG HCO3 ABG Base Excess ABG Hemoglobin VBG pH Oxyhemoglobin Sodium Potassium Chloride Carbon Dioxide BUN Creatinine Glucose POC Glucose 213 H 224 H 379 H Lactic Acid Calcium AST ALT Alkaline Phosphatase CK-MB (CK-2) CK-MB (CK-2) Rel Index Total Protein Albumin TSH Urine WBC (Auto) Salicylates 05/14/17 05/14/17 05/14/17 05:17 13:35 21:23 WBC RBC Hgb Hct MCV MCH RDW Plt Count Lymph % (Auto) [place] % (Auto) Eos % (Auto) [place] # Seg Neutrophils % Seg Neuts % (Manual) Lymphocytes % (Manual) Seg Neutrophils # Seg Neutrophils # Man Lymphocytes # (Manual) APTT POC ABG pH ABG pH POC ABG pCO2 POC ABG pO2 ABG pO2 ABG HCO3 ABG Base Excess ABG Hemoglobin VBG pH Oxyhemoglobin Sodium Potassium Chloride Carbon Dioxide BUN Creatinine Glucose POC Glucose 234 H 242 H 218 H Lactic Acid Calcium AST ALT Alkaline Phosphatase CK-MB (CK-2) CK-MB (CK-2) Rel Index Total Protein Albumin TSH Urine WBC (Auto) Salicylates 05/15/17 05/15/17 05/16/17 04:58 13:53 01:34 WBC RBC Hgb Hct MCV MCH RDW Plt Count Lymph % (Auto) [place] % (Auto) Eos % (Auto) [place] # Seg Neutrophils % Seg Neuts % (Manual) Lymphocytes % (Manual) Seg Neutrophils # Seg Neutrophils # Man Lymphocytes # (Manual) APTT POC ABG pH ABG pH POC ABG pCO2 POC ABG pO2 ABG pO2 ABG HCO3 ABG Base Excess ABG Hemoglobin VBG pH Oxyhemoglobin Sodium Potassium Chloride Carbon Dioxide BUN Creatinine Glucose POC Glucose 310 H 193 H 263 H Lactic Acid Calcium AST ALT Alkaline Phosphatase CK-MB (CK-2) CK-MB (CK-2) Rel Index Total Protein Albumin TSH Urine WBC (Auto) Salicylates 05/16/17 05/16/17 05/16/17 06:03 14:36 21:59 WBC RBC Hgb Hct MCV MCH RDW Plt Count Lymph % (Auto) [place] % (Auto) Eos % (Auto) [place] # Seg Neutrophils % Seg Neuts % (Manual) Lymphocytes % (Manual) Seg Neutrophils # Seg Neutrophils # Man Lymphocytes # (Manual) APTT POC ABG pH ABG pH POC ABG pCO2 POC ABG pO2 ABG pO2 ABG HCO3 ABG Base Excess ABG Hemoglobin VBG pH Oxyhemoglobin Sodium Potassium Chloride Carbon Dioxide BUN Creatinine Glucose POC Glucose 330 H 272 H 198 H Lactic Acid Calcium AST ALT Alkaline Phosphatase CK-MB (CK-2) CK-MB (CK-2) Rel Index Total Protein Albumin TSH Urine WBC (Auto) Salicylates 05/17/17 05/17/17 05/18/17 05:48 13:59 05:27 WBC RBC Hgb Hct MCV MCH RDW Plt Count Lymph % (Auto) [place] % (Auto) Eos % (Auto) [place] # Seg Neutrophils % Seg Neuts % (Manual) Lymphocytes % (Manual) Seg Neutrophils # Seg Neutrophils # Man Lymphocytes # (Manual) APTT POC ABG pH ABG pH POC ABG pCO2 POC ABG pO2 ABG pO2 ABG HCO3 ABG Base Excess ABG Hemoglobin VBG pH Oxyhemoglobin Sodium Potassium Chloride Carbon Dioxide BUN Creatinine Glucose POC Glucose 204 H 229 H 152 H Lactic Acid Calcium AST ALT Alkaline Phosphatase CK-MB (CK-2) CK-MB (CK-2) Rel Index Total Protein Albumin TSH Urine WBC (Auto) Salicylates 05/18/17 05/18/17 05/19/17 14:16 21:27 04:59 WBC RBC Hgb Hct MCV MCH RDW Plt Count Lymph % (Auto) [place] % (Auto) Eos % (Auto) [place] # Seg Neutrophils % Seg Neuts % (Manual) Lymphocytes % (Manual) Seg Neutrophils # Seg Neutrophils # Man Lymphocytes # (Manual) APTT POC ABG pH ABG pH POC ABG pCO2 POC ABG pO2 ABG pO2 ABG HCO3 ABG Base Excess ABG Hemoglobin VBG pH Oxyhemoglobin Sodium Potassium Chloride Carbon Dioxide BUN Creatinine Glucose POC Glucose 217 H 202 H 131 H Lactic Acid Calcium AST ALT Alkaline Phosphatase CK-MB (CK-2) CK-MB (CK-2) Rel Index Total Protein Albumin TSH Urine WBC (Auto) Salicylates 05/19/17 05/20/17 05/20/17 14:57 00:11 05:45 WBC RBC Hgb Hct MCV MCH RDW Plt Count Lymph % (Auto) [place] % (Auto) Eos % (Auto) [place] # Seg Neutrophils % Seg Neuts % (Manual) Lymphocytes % (Manual) Seg Neutrophils # Seg Neutrophils # Man Lymphocytes # (Manual) APTT POC ABG pH ABG pH POC ABG pCO2 POC ABG pO2 ABG pO2 ABG HCO3 ABG Base Excess ABG Hemoglobin VBG pH Oxyhemoglobin Sodium Potassium Chloride Carbon Dioxide BUN Creatinine Glucose POC Glucose 216 H 197 H 195 H Lactic Acid Calcium AST ALT Alkaline Phosphatase CK-MB (CK-2) CK-MB (CK-2) Rel Index Total Protein Albumin TSH Urine WBC (Auto) Salicylates
--- NOTE | 2017-05-20 15:49 | Event Note ---
Date: 05/20/17 ETHICS CONSULT: The patient is a 51-year-old male who was found down, hypoglycemic and unable to protect his airway on initial presentation. Despite maximal medical therapy the patient remains in a persistent vegetative state. He is unable to protect his airway and remains ventilator dependent. During initial ethics consultation, it was recommended that the patient's CODE STATUS be changed to allow natural and to transfer him to hospice care facility. Patient has now been made a [place] of the state with decision making ability. The recommendations of the ethics committee have not changed as the patient remains in a persistent vegetative state with no hope of meaningful recovery. Continued interventions are futile. We would recommend that the patient be transferred to a hospice facility to allow natural .
[2017-05-21] MEDS: HumuLIN R SUB-Q SCH ×3 (05:56→22:03)
[2017-05-21] MEDS: LEVEMIR (NF) SUB-Q SCH (08:50)
--- NOTE | 2017-05-21 09:37 | Progress Note ---
Assessment and Plan Acute respiratory failure secondary to metabolic event, prolonged vent support Hypoglycemia/hypothermia - Hypothyroidism; UTI/SIRS.Resolved Metabolic encephalopathy. Residual vegetative state,severe.No mayor improvement or change Rec: Patient now wart of the state according to record notes. Expected to be transferred to hospice care level from this point on. No meaningful response to medical therapy as stated in previous notes No additional pulmonary recommendations at this time and I agree with transfer to hospice level care Poor prognosis,unchanged status Subjective Date of service: 05/21/17 Principal diagnosis: Acute respiratory failure,encephalopathy Interval history: Intubated on vent support Objective Vital Signs - 12hr 05/20/17 05/20/17 05/20/17 22:02 23:01 23:14 Temperature Pulse Rate 69 70 70 Respiratory 13 12 Rate Blood Pressure 131/71 131/71 O2 Sat by Pulse 100 100 100 Oximetry 05/21/17 05/21/17 05/21/17 00:00 02:01 03:13 Temperature 97.4 F L Pulse Rate 71 71 68 Respiratory 12 14 Rate Blood Pressure 119/74 119/74 119/74 O2 Sat by Pulse 100 100 100 Oximetry 05/21/17 05/21/17 05/21/17 03:44 04:01 06:01 Temperature 97.1 F L Pulse Rate 70 70 Respiratory 12 13 Rate Blood Pressure 119/74 119/74 O2 Sat by Pulse 100 100 Oximetry 05/21/17 05/21/17 08:00 08:52 Temperature 97.7 F Pulse Rate 73 72 Respiratory 12 12 Rate Blood Pressure 125/74 125/74 O2 Sat by Pulse 100 99 Oximetry Constitutional: no acute distress, other (on vent) Eyes: non-icteric ENT: oropharynx moist, other (ETT in position) Neck: supple Effort: normal Ascultation: Bilateral: clear, diminished breath sounds Cardiovascular: regular rate and rhythm (no mrg) Gastrointestinal: normoactive bowel sounds, soft, non-tender, non-distended Integumentary: normal Extremities: no cyanosis, no edema, pink and warm Neurologic: pupils equal and round, other (opens eyes spontaneously, but no meaningful responce to commands, ) Psychiatric: other (unable to obtain) CBC and BMP: 04/28/17 05:10 04/28/17 05:10 ABG, PT/INR, D-dimer: ABG POC ABG pH 7.442 (7.35-7.45) 01/31/17 18:55 ABG pH 7.420 pH Units (7.350-7.450) 01/17/17 04:35 POC ABG pCO2 32.8 (35-45) L 01/31/17 18:55 ABG pCO2 34.5 mm Hg 01/17/17 04:35 POC ABG pO2 82 (80-105) 01/31/17 18:55 ABG pO2 160.3 mm Hg (80.0-90.0) H 01/17/17 04:35 POC ABG HCO3 22.4 01/31/17 18:55 POC ABG Total CO2 23 01/31/17 18:55 POC ABG O2 Sat 97 01/31/17 18:55 ABG O2 Saturation 99.0 % (95.0-99.0) 01/17/17 04:35 PT/INR, D-dimer PT 14.1 Sec. (12.2-14.9) 01/17/17 04:10 INR 1.04 (0.87-1.13) 01/17/17 04:10 Abnormal lab findings: Abnormal Labs 01/09/17 01/09/17 01/09/17 10:16 10:16 10:16 WBC RBC Hgb 9.7 L Hct 28.4 L MCV 76 L MCH 26 L RDW 17.2 H Plt Count 448 H Lymph % (Auto) [place] % (Auto) Eos % (Auto) [place] # Seg Neutrophils % 79.5 H Seg Neuts % (Manual) Lymphocytes % (Manual) Seg Neutrophils # Seg Neutrophils # Man Lymphocytes # (Manual) APTT 39.6 H POC ABG pH ABG pH POC ABG pCO2 POC ABG pO2 ABG pO2 ABG HCO3 ABG Base Excess ABG Hemoglobin VBG pH Oxyhemoglobin Sodium 132 L Potassium Chloride 96.7 L Carbon Dioxide 21 L BUN 34 H Creatinine Glucose POC Glucose Lactic Acid Calcium 8.3 L AST ALT Alkaline Phosphatase 151 H CK-MB (CK-2) 7.1 H CK-MB (CK-2) Rel Index 5.2 H Total Protein Albumin 3.3 L TSH Urine WBC (Auto) Salicylates 01/09/17 01/09/17 01/09/17 10:16 10:16 10:16 WBC RBC Hgb Hct MCV MCH RDW Plt Count Lymph % (Auto) [place] % (Auto) Eos % (Auto) [place] # Seg Neutrophils % Seg Neuts % (Manual) Lymphocytes % (Manual) Seg Neutrophils # Seg Neutrophils # Man Lymphocytes # (Manual) APTT POC ABG pH ABG pH POC ABG pCO2 POC ABG pO2 ABG pO2 ABG HCO3 ABG Base Excess ABG Hemoglobin VBG pH 7.284 L Oxyhemoglobin Sodium Potassium Chloride Carbon Dioxide BUN Creatinine Glucose POC Glucose Lactic Acid Calcium AST ALT Alkaline Phosphatase CK-MB (CK-2) CK-MB (CK-2) Rel Index Total Protein Albumin TSH 52.800 H Urine WBC (Auto) Salicylates < 0.3 L 01/09/17 01/09/17 01/09/17 10:23 11:14 12:49 WBC RBC Hgb Hct MCV MCH RDW Plt Count Lymph % (Auto) [place] % (Auto) Eos % (Auto) [place] # Seg Neutrophils % Seg Neuts % (Manual) Lymphocytes % (Manual) Seg Neutrophils # Seg Neutrophils # Man Lymphocytes # (Manual) APTT POC ABG pH ABG pH POC ABG pCO2 POC ABG pO2 643 H ABG pO2 ABG HCO3 ABG Base Excess ABG Hemoglobin VBG pH Oxyhemoglobin Sodium Potassium Chloride Carbon Dioxide BUN Creatinine Glucose POC Glucose < 40 L Lactic Acid Calcium AST ALT Alkaline Phosphatase CK-MB (CK-2) CK-MB (CK-2) Rel Index Total Protein Albumin TSH Urine WBC (Auto) 61.0 H Salicylates 01/09/17 01/09/17 01/09/17 13:13 14:21 15:09 WBC RBC Hgb Hct MCV MCH RDW Plt Count Lymph % (Auto) [place] % (Auto) Eos % (Auto) [place] # Seg Neutrophils % Seg Neuts % (Manual) Lymphocytes % (Manual) Seg Neutrophils # Seg Neutrophils # Man Lymphocytes # (Manual) APTT POC ABG pH ABG pH POC ABG pCO2 POC ABG pO2 ABG pO2 ABG HCO3 ABG Base Excess ABG Hemoglobin VBG pH Oxyhemoglobin Sodium Potassium Chloride Carbon Dioxide BUN Creatinine Glucose POC Glucose 128 H 65 L 120 H Lactic Acid Calcium AST ALT Alkaline Phosphatase CK-MB (CK-2) CK-MB (CK-2) Rel Index Total Protein Albumin TSH Urine WBC (Auto) Salicylates 01/09/17 01/09/17 01/10/17 16:28 17:14 04:30 WBC 24.1 H RBC 3.38 L Hgb 8.5 L Hct 26.0 L MCV 77 L MCH 25 L RDW 17.9 H Plt Count 474 H Lymph % (Auto) [place] % (Auto) Eos % (Auto) [place] # Seg Neutrophils % Seg Neuts % (Manual) 88.0 H Lymphocytes % (Manual) 4.0 L Seg Neutrophils # Seg Neutrophils # Man 21.2 H Lymphocytes # (Manual) 1.0 L APTT POC ABG pH ABG pH POC ABG pCO2 POC ABG pO2 ABG pO2 ABG HCO3 ABG Base Excess ABG Hemoglobin VBG pH Oxyhemoglobin Sodium Potassium Chloride Carbon Dioxide BUN Creatinine Glucose POC Glucose 44 L 112 H Lactic Acid Calcium AST ALT Alkaline Phosphatase CK-MB (CK-2) CK-MB (CK-2) Rel Index Total Protein Albumin TSH Urine WBC (Auto) Salicylates 01/10/17 01/10/17 01/10/17 04:30 05:41 05:45 WBC RBC Hgb Hct MCV MCH RDW Plt Count Lymph % (Auto) [place] % (Auto) Eos % (Auto) [place] # Seg Neutrophils % Seg Neuts % (Manual) Lymphocytes % (Manual) Seg Neutrophils # Seg Neutrophils # Man Lymphocytes # (Manual) APTT POC ABG pH ABG pH POC ABG pCO2 26.6 L POC ABG pO2 207 H ABG pO2 ABG HCO3 ABG Base Excess ABG Hemoglobin VBG pH Oxyhemoglobin Sodium Potassium Chloride Carbon Dioxide 17 L BUN 27 H Creatinine Glucose POC Glucose 68 L Lactic Acid Calcium 7.5 L AST ALT Alkaline Phosphatase CK-MB (CK-2) CK-MB (CK-2) Rel Index Total Protein Albumin TSH Urine WBC (Auto) Salicylates 01/10/17 01/10/17 01/10/17 07:47 10:50 13:41 WBC RBC Hgb Hct MCV MCH RDW Plt Count Lymph % (Auto) [place] % (Auto) Eos % (Auto) [place] # Seg Neutrophils % Seg Neuts % (Manual) Lymphocytes % (Manual) Seg Neutrophils # Seg Neutrophils # Man Lymphocytes # (Manual) APTT POC ABG pH ABG pH POC ABG pCO2 POC ABG pO2 ABG pO2 ABG HCO3 ABG Base Excess ABG Hemoglobin VBG pH Oxyhemoglobin Sodium Potassium Chloride Carbon Dioxide BUN Creatinine Glucose POC Glucose 148 H 165 H 114 H Lactic Acid Calcium AST ALT Alkaline Phosphatase CK-MB (CK-2) CK-MB (CK-2) Rel Index Total Protein Albumin TSH Urine WBC (Auto) Salicylates 01/10/17 01/10/17 01/10/17 20:20 21:39 23:24 WBC RBC Hgb Hct MCV MCH RDW Plt Count Lymph % (Auto) [place] % (Auto) Eos % (Auto) [place] # Seg Neutrophils % Seg Neuts % (Manual) Lymphocytes % (Manual) Seg Neutrophils # Seg Neutrophils # Man Lymphocytes # (Manual) APTT POC ABG pH ABG pH POC ABG pCO2 POC ABG pO2 ABG pO2 ABG HCO3 ABG Base Excess ABG Hemoglobin VBG pH Oxyhemoglobin Sodium Potassium Chloride Carbon Dioxide BUN Creatinine Glucose POC Glucose 150 H 175 H 155 H Lactic Acid Calcium AST ALT Alkaline Phosphatase CK-MB (CK-2) CK-MB (CK-2) Rel Index Total Protein Albumin TSH Urine WBC (Auto) Salicylates 01/11/17 01/11/17 01/11/17 00:19 04:06 05:20 WBC 15.2 H RBC 3.40 L Hgb 8.9 L Hct 26.3 L MCV 78 L MCH 26 L RDW 18.6 H Plt Count 462 H Lymph % (Auto) 13.2 L [place] % (Auto) Eos % (Auto) [place] # Seg Neutrophils % 80.8 H Seg Neuts % (Manual) Lymphocytes % (Manual) Seg Neutrophils # 12.3 H Seg Neutrophils # Man Lymphocytes # (Manual) APTT POC ABG pH 7.463 H ABG pH POC ABG pCO2 26.2 L POC ABG pO2 185 H ABG pO2 ABG HCO3 ABG Base Excess ABG Hemoglobin VBG pH Oxyhemoglobin Sodium Potassium Chloride Carbon Dioxide BUN Creatinine Glucose POC Glucose 163 H Lactic Acid Calcium AST ALT Alkaline Phosphatase CK-MB (CK-2) CK-MB (CK-2) Rel Index Total Protein Albumin TSH Urine WBC (Auto) Salicylates 01/11/17 01/11/17 01/11/17 05:20 06:21 07:57 WBC RBC Hgb Hct MCV MCH RDW Plt Count Lymph % (Auto) [place] % (Auto) Eos % (Auto) [place] # Seg Neutrophils % Seg Neuts % (Manual) Lymphocytes % (Manual) Seg Neutrophils # Seg Neutrophils # Man Lymphocytes # (Manual) APTT POC ABG pH ABG pH POC ABG pCO2 POC ABG pO2 ABG pO2 ABG HCO3 ABG Base Excess ABG Hemoglobin VBG pH Oxyhemoglobin Sodium Potassium 3.4 L Chloride 111.5 H Carbon Dioxide 17 L BUN Creatinine Glucose 147 H POC Glucose 139 H 188 H Lactic Acid Calcium 8.0 L AST ALT Alkaline Phosphatase CK-MB (CK-2) CK-MB (CK-2) Rel Index Total Protein Albumin TSH Urine WBC (Auto) Salicylates 01/11/17 01/11/17 01/11/17 11:46 16:50 23:15 WBC RBC Hgb Hct MCV MCH RDW Plt Count Lymph % (Auto) [place] % (Auto) Eos % (Auto) [place] # Seg Neutrophils % Seg Neuts % (Manual) Lymphocytes % (Manual) Seg Neutrophils # Seg Neutrophils # Man Lymphocytes # (Manual) APTT POC ABG pH ABG pH POC ABG pCO2 POC ABG pO2 ABG pO2 ABG HCO3 ABG Base Excess ABG Hemoglobin VBG pH Oxyhemoglobin Sodium Potassium Chloride Carbon Dioxide BUN Creatinine Glucose POC Glucose 199 H 235 H 155 H Lactic Acid Calcium AST ALT Alkaline Phosphatase CK-MB (CK-2) CK-MB (CK-2) Rel Index Total Protein Albumin TSH Urine WBC (Auto) Salicylates 01/12/17 01/12/17 01/12/17 05:02 06:56 14:50 WBC RBC Hgb Hct MCV MCH RDW Plt Count Lymph % (Auto) [place] % (Auto) Eos % (Auto) [place] # Seg Neutrophils % Seg Neuts % (Manual) Lymphocytes % (Manual) Seg Neutrophils # Seg Neutrophils # Man Lymphocytes # (Manual) APTT POC ABG pH ABG pH POC ABG pCO2 28.0 L POC ABG pO2 178 H ABG pO2 ABG HCO3 ABG Base Excess ABG Hemoglobin VBG pH Oxyhemoglobin Sodium Potassium Chloride Carbon Dioxide BUN Creatinine Glucose POC Glucose 119 H 164 H Lactic Acid Calcium AST ALT Alkaline Phosphatase CK-MB (CK-2) CK-MB (CK-2) Rel Index Total Protein Albumin TSH Urine WBC (Auto) Salicylates 01/13/17 01/13/17 01/13/17 03:37 03:37 04:26 WBC RBC 3.61 L Hgb 9.3 L Hct 28.0 L MCV 78 L MCH 26 L RDW 18.2 H Plt Count Lymph % (Auto) [place] % (Auto) Eos % (Auto) [place] # Seg Neutrophils % Seg Neuts % (Manual) Lymphocytes % (Manual) Seg Neutrophils # Seg Neutrophils # Man Lymphocytes # (Manual) APTT POC ABG pH 7.485 H ABG pH POC ABG pCO2 25.4 L POC ABG pO2 73 L ABG pO2 ABG HCO3 ABG Base Excess ABG Hemoglobin VBG pH Oxyhemoglobin Sodium Potassium Chloride 112.4 H Carbon Dioxide 19 L BUN Creatinine Glucose 118 H POC Glucose Lactic Acid Calcium 8.0 L AST ALT Alkaline Phosphatase CK-MB (CK-2) CK-MB (CK-2) Rel Index Total Protein Albumin TSH Urine WBC (Auto) Salicylates 01/13/17 01/13/17 01/13/17 06:15 11:50 17:31 WBC RBC Hgb Hct MCV MCH RDW Plt Count Lymph % (Auto) [place] % (Auto) Eos % (Auto) [place] # Seg Neutrophils % Seg Neuts % (Manual) Lymphocytes % (Manual) Seg Neutrophils # Seg Neutrophils # Man Lymphocytes # (Manual) APTT POC ABG pH ABG pH POC ABG pCO2 POC ABG pO2 ABG pO2 ABG HCO3 ABG Base Excess ABG Hemoglobin VBG pH Oxyhemoglobin Sodium Potassium Chloride Carbon Dioxide BUN Creatinine Glucose POC Glucose 116 H 171 H 203 H Lactic Acid Calcium AST ALT Alkaline Phosphatase CK-MB (CK-2) CK-MB (CK-2) Rel Index Total Protein Albumin TSH Urine WBC (Auto) Salicylates 01/14/17 01/14/17 01/14/17 00:02 04:50 04:50 WBC RBC 3.32 L Hgb 8.5 L Hct 26.1 L MCV 79 L MCH 26 L RDW 18.2 H Plt Count Lymph % (Auto) [place] % (Auto) 9.0 H Eos % (Auto) [place] # Seg Neutrophils % Seg Neuts % (Manual) Lymphocytes % (Manual) Seg Neutrophils # Seg Neutrophils # Man Lymphocytes # (Manual) APTT POC ABG pH ABG pH POC ABG pCO2 POC ABG pO2 ABG pO2 ABG HCO3 ABG Base Excess ABG Hemoglobin VBG pH Oxyhemoglobin Sodium Potassium Chloride 112.5 H Carbon Dioxide BUN Creatinine Glucose 149 H POC Glucose 157 H Lactic Acid Calcium 8.1 L AST ALT Alkaline Phosphatase CK-MB (CK-2) CK-MB (CK-2) Rel Index Total Protein Albumin TSH Urine WBC (Auto) Salicylates 01/14/17 01/14/17 01/14/17 05:10 11:27 14:07 WBC RBC Hgb Hct MCV MCH RDW Plt Count Lymph % (Auto) [place] % (Auto) Eos % (Auto) [place] # Seg Neutrophils % Seg Neuts % (Manual) Lymphocytes % (Manual) Seg Neutrophils # Seg Neutrophils # Man Lymphocytes # (Manual) APTT POC ABG pH ABG pH POC ABG pCO2 POC ABG pO2 ABG pO2 ABG HCO3 ABG Base Excess ABG Hemoglobin VBG pH Oxyhemoglobin Sodium Potassium Chloride Carbon Dioxide BUN Creatinine Glucose POC Glucose 176 H 147 H Lactic Acid Calcium AST ALT Alkaline Phosphatase CK-MB (CK-2) CK-MB (CK-2) Rel Index Total Protein Albumin TSH Urine WBC (Auto) 53.0 H Salicylates 01/14/17 01/15/17 01/15/17 16:52 00:04 05:26 WBC RBC Hgb Hct MCV MCH RDW Plt Count Lymph % (Auto) [place] % (Auto) Eos % (Auto) [place] # Seg Neutrophils % Seg Neuts % (Manual) Lymphocytes % (Manual) Seg Neutrophils # Seg Neutrophils # Man Lymphocytes # (Manual) APTT POC ABG pH ABG pH POC ABG pCO2 POC ABG pO2 ABG pO2 ABG HCO3 ABG Base Excess ABG Hemoglobin VBG pH Oxyhemoglobin Sodium Potassium Chloride Carbon Dioxide BUN Creatinine Glucose POC Glucose 131 H 193 H 215 H Lactic Acid Calcium AST ALT Alkaline Phosphatase CK-MB (CK-2) CK-MB (CK-2) Rel Index Total Protein Albumin TSH Urine WBC (Auto) Salicylates 01/15/17 01/15/17 01/15/17 11:49 17:47 21:33 WBC RBC Hgb Hct MCV MCH RDW Plt Count Lymph % (Auto) [place] % (Auto) Eos % (Auto) [place] # Seg Neutrophils % Seg Neuts % (Manual) Lymphocytes % (Manual) Seg Neutrophils # Seg Neutrophils # Man Lymphocytes # (Manual) APTT POC ABG pH ABG pH POC ABG pCO2 POC ABG pO2 ABG pO2 ABG HCO3 ABG Base Excess ABG Hemoglobin VBG pH Oxyhemoglobin Sodium Potassium Chloride Carbon Dioxide BUN Creatinine Glucose POC Glucose 121 H 211 H 275 H Lactic Acid Calcium AST ALT Alkaline Phosphatase CK-MB (CK-2) CK-MB (CK-2) Rel Index Total Protein Albumin TSH Urine WBC (Auto) Salicylates 01/16/17 01/16/17 01/16/17 04:30 05:28 13:45 WBC RBC Hgb Hct MCV MCH RDW Plt Count Lymph % (Auto) [place] % (Auto) Eos % (Auto) [place] # Seg Neutrophils % Seg Neuts % (Manual) Lymphocytes % (Manual) Seg Neutrophils # Seg Neutrophils # Man Lymphocytes # (Manual) APTT POC ABG pH ABG pH 7.457 H POC ABG pCO2 POC ABG pO2 ABG pO2 55.1 L ABG HCO3 19.4 L ABG Base Excess -4.0 L ABG Hemoglobin 6.8 L VBG pH Oxyhemoglobin 94.9 L Sodium Potassium Chloride Carbon Dioxide BUN Creatinine Glucose POC Glucose 271 H 236 H Lactic Acid Calcium AST ALT Alkaline Phosphatase CK-MB (CK-2) CK-MB (CK-2) Rel Index Total Protein Albumin TSH Urine WBC (Auto) Salicylates 01/16/17 01/17/17 01/17/17 21:39 04:10 04:10 WBC 4.4 L RBC 2.98 L Hgb 7.7 L Hct 23.3 L MCV 78 L MCH 26 L RDW 18.1 H Plt Count Lymph % (Auto) [place] % (Auto) Eos % (Auto) [place] # Seg Neutrophils % Seg Neuts % (Manual) Lymphocytes % (Manual) Seg Neutrophils # Seg Neutrophils # Man Lymphocytes # (Manual) APTT POC ABG pH ABG pH POC ABG pCO2 POC ABG pO2 ABG pO2 ABG HCO3 ABG Base Excess ABG Hemoglobin VBG pH Oxyhemoglobin Sodium Potassium 3.3 L Chloride 108.7 H Carbon Dioxide 20 L BUN 8 L Creatinine Glucose 202 H POC Glucose 258 H Lactic Acid Calcium 7.6 L AST ALT Alkaline Phosphatase CK-MB (CK-2) CK-MB (CK-2) Rel Index Total Protein Albumin TSH Urine WBC (Auto) Salicylates 01/17/17 01/17/17 01/17/17 04:35 12:23 16:01 WBC RBC Hgb Hct MCV MCH RDW Plt Count Lymph % (Auto) [place] % (Auto) Eos % (Auto) [place] # Seg Neutrophils % Seg Neuts % (Manual) Lymphocytes % (Manual) Seg Neutrophils # Seg Neutrophils # Man Lymphocytes # (Manual) APTT POC ABG pH ABG pH POC ABG pCO2 POC ABG pO2 ABG pO2 160.3 H ABG HCO3 ABG Base Excess -2.3 L ABG Hemoglobin 7.9 L VBG pH Oxyhemoglobin Sodium Potassium Chloride Carbon Dioxide BUN Creatinine Glucose POC Glucose 321 H 239 H Lactic Acid Calcium AST ALT Alkaline Phosphatase CK-MB (CK-2) CK-MB (CK-2) Rel Index Total Protein Albumin TSH Urine WBC (Auto) Salicylates 01/18/17 01/18/17 01/18/17 05:07 12:09 17:54 WBC RBC Hgb Hct MCV MCH RDW Plt Count Lymph % (Auto) [place] % (Auto) Eos % (Auto) [place] # Seg Neutrophils % Seg Neuts % (Manual) Lymphocytes % (Manual) Seg Neutrophils # Seg Neutrophils # Man Lymphocytes # (Manual) APTT POC ABG pH ABG pH POC ABG pCO2 POC ABG pO2 ABG pO2 ABG HCO3 ABG Base Excess ABG Hemoglobin VBG pH Oxyhemoglobin Sodium Potassium Chloride Carbon Dioxide BUN Creatinine Glucose POC Glucose 155 H 203 H 132 H Lactic Acid Calcium AST ALT Alkaline Phosphatase CK-MB (CK-2) CK-MB (CK-2) Rel Index Total Protein Albumin TSH Urine WBC (Auto) Salicylates 01/18/17 01/19/17 01/19/17 23:43 04:28 12:11 WBC RBC Hgb Hct MCV MCH RDW Plt Count Lymph % (Auto) [place] % (Auto) Eos % (Auto) [place] # Seg Neutrophils % Seg Neuts % (Manual) Lymphocytes % (Manual) Seg Neutrophils # Seg Neutrophils # Man Lymphocytes # (Manual) APTT POC ABG pH ABG pH POC ABG pCO2 POC ABG pO2 ABG pO2 ABG HCO3 ABG Base Excess ABG Hemoglobin VBG pH Oxyhemoglobin Sodium Potassium Chloride Carbon Dioxide BUN Creatinine Glucose POC Glucose 125 H 182 H 153 H Lactic Acid Calcium AST ALT Alkaline Phosphatase CK-MB (CK-2) CK-MB (CK-2) Rel Index Total Protein Albumin TSH Urine WBC (Auto) Salicylates 01/19/17 01/20/17 01/20/17 17:23 00:12 05:44 WBC RBC Hgb Hct MCV MCH RDW Plt Count Lymph % (Auto) [place] % (Auto) Eos % (Auto) [place] # Seg Neutrophils % Seg Neuts % (Manual) Lymphocytes % (Manual) Seg Neutrophils # Seg Neutrophils # Man Lymphocytes # (Manual) APTT POC ABG pH ABG pH POC ABG pCO2 POC ABG pO2 ABG pO2 ABG HCO3 ABG Base Excess ABG Hemoglobin VBG pH Oxyhemoglobin Sodium Potassium Chloride Carbon Dioxide BUN Creatinine Glucose POC Glucose 66 L 139 H 176 H Lactic Acid Calcium AST ALT Alkaline Phosphatase CK-MB (CK-2) CK-MB (CK-2) Rel Index Total Protein Albumin TSH Urine WBC (Auto) Salicylates 01/20/17 01/20/17 01/20/17 11:48 17:42 23:43 WBC RBC Hgb Hct MCV MCH RDW Plt Count Lymph % (Auto) [place] % (Auto) Eos % (Auto) [place] # Seg Neutrophils % Seg Neuts % (Manual) Lymphocytes % (Manual) Seg Neutrophils # Seg Neutrophils # Man Lymphocytes # (Manual) APTT POC ABG pH ABG pH POC ABG pCO2 POC ABG pO2 ABG pO2 ABG HCO3 ABG Base Excess ABG Hemoglobin VBG pH Oxyhemoglobin Sodium Potassium Chloride Carbon Dioxide BUN Creatinine Glucose POC Glucose 218 H 132 H 178 H Lactic Acid Calcium AST ALT Alkaline Phosphatase CK-MB (CK-2) CK-MB (CK-2) Rel Index Total Protein Albumin TSH Urine WBC (Auto) Salicylates 01/21/17 01/21/17 01/21/17 05:34 11:17 23:37 WBC RBC Hgb Hct MCV MCH RDW Plt Count Lymph % (Auto) [place] % (Auto) Eos % (Auto) [place] # Seg Neutrophils % Seg Neuts % (Manual) Lymphocytes % (Manual) Seg Neutrophils # Seg Neutrophils # Man Lymphocytes # (Manual) APTT POC ABG pH ABG pH POC ABG pCO2 POC ABG pO2 ABG pO2 ABG HCO3 ABG Base Excess ABG Hemoglobin VBG pH Oxyhemoglobin Sodium Potassium Chloride Carbon Dioxide BUN Creatinine Glucose POC Glucose 106 H 213 H 140 H Lactic Acid Calcium AST ALT Alkaline Phosphatase CK-MB (CK-2) CK-MB (CK-2) Rel Index Total Protein Albumin TSH Urine WBC (Auto) Salicylates 01/22/17 01/22/17 01/22/17 04:00 04:00 04:58 WBC RBC 3.26 L Hgb 8.3 L Hct 25.5 L MCV 78 L MCH 25 L RDW 17.9 H Plt Count Lymph % (Auto) [place] % (Auto) 7.9 H Eos % (Auto) 6.2 H [place] # Seg Neutrophils % Seg Neuts % (Manual) Lymphocytes % (Manual) Seg Neutrophils # Seg Neutrophils # Man Lymphocytes # (Manual) APTT POC ABG pH ABG pH POC ABG pCO2 POC ABG pO2 ABG pO2 ABG HCO3 ABG Base Excess ABG Hemoglobin VBG pH Oxyhemoglobin Sodium Potassium Chloride 95.5 L Carbon Dioxide 31 H D BUN Creatinine Glucose 134 H POC Glucose 146 H Lactic Acid Calcium AST 44 H ALT Alkaline Phosphatase 379 H CK-MB (CK-2) CK-MB (CK-2) Rel Index Total Protein Albumin 2.7 L TSH Urine WBC (Auto) Salicylates 01/22/17 01/22/17 01/22/17 12:12 18:12 23:39 WBC RBC Hgb Hct MCV MCH RDW Plt Count Lymph % (Auto) [place] % (Auto) Eos % (Auto) [place] # Seg Neutrophils % Seg Neuts % (Manual) Lymphocytes % (Manual) Seg Neutrophils # Seg Neutrophils # Man Lymphocytes # (Manual) APTT POC ABG pH ABG pH POC ABG pCO2 POC ABG pO2 ABG pO2 ABG HCO3 ABG Base Excess ABG Hemoglobin VBG pH Oxyhemoglobin Sodium Potassium Chloride Carbon Dioxide BUN Creatinine Glucose POC Glucose 255 H 182 H 134 H Lactic Acid Calcium AST ALT Alkaline Phosphatase CK-MB (CK-2) CK-MB (CK-2) Rel Index Total Protein Albumin TSH Urine WBC (Auto) Salicylates 01/23/17 01/23/17 01/23/17 04:43 12:12 17:36 WBC RBC Hgb Hct MCV MCH RDW Plt Count Lymph % (Auto) [place] % (Auto) Eos % (Auto) [place] # Seg Neutrophils % Seg Neuts % (Manual) Lymphocytes % (Manual) Seg Neutrophils # Seg Neutrophils # Man Lymphocytes # (Manual) APTT POC ABG pH ABG pH POC ABG pCO2 POC ABG pO2 ABG pO2 ABG HCO3 ABG Base Excess ABG Hemoglobin VBG pH Oxyhemoglobin Sodium Potassium Chloride Carbon Dioxide BUN Creatinine Glucose POC Glucose 218 H 128 H 156 H Lactic Acid Calcium AST ALT Alkaline Phosphatase CK-MB (CK-2) CK-MB (CK-2) Rel Index Total Protein Albumin TSH Urine WBC (Auto) Salicylates 01/24/17 01/24/17 01/24/17 00:08 05:16 11:40 WBC RBC Hgb Hct MCV MCH RDW Plt Count Lymph % (Auto) [place] % (Auto) Eos % (Auto) [place] # Seg Neutrophils % Seg Neuts % (Manual) Lymphocytes % (Manual) Seg Neutrophils # Seg Neutrophils # Man Lymphocytes # (Manual) APTT POC ABG pH ABG pH POC ABG pCO2 POC ABG pO2 ABG pO2 ABG HCO3 ABG Base Excess ABG Hemoglobin VBG pH Oxyhemoglobin Sodium Potassium Chloride Carbon Dioxide BUN Creatinine Glucose POC Glucose 129 H 169 H 187 H Lactic Acid Calcium AST ALT Alkaline Phosphatase CK-MB (CK-2) CK-MB (CK-2) Rel Index Total Protein Albumin TSH Urine WBC (Auto) Salicylates 01/24/17 01/24/17 01/25/17 17:43 23:23 04:56 WBC RBC Hgb Hct MCV MCH RDW Plt Count Lymph % (Auto) [place] % (Auto) Eos % (Auto) [place] # Seg Neutrophils % Seg Neuts % (Manual) Lymphocytes % (Manual) Seg Neutrophils # Seg Neutrophils # Man Lymphocytes # (Manual) APTT POC ABG pH ABG pH POC ABG pCO2 POC ABG pO2 ABG pO2 ABG HCO3 ABG Base Excess ABG Hemoglobin VBG pH Oxyhemoglobin Sodium Potassium Chloride Carbon Dioxide BUN Creatinine Glucose POC Glucose 215 H 222 H 210 H Lactic Acid Calcium AST ALT Alkaline Phosphatase CK-MB (CK-2) CK-MB (CK-2) Rel Index Total Protein Albumin TSH Urine WBC (Auto) Salicylates 01/25/17 01/25/17 01/26/17 11:52 17:37 00:02 WBC RBC Hgb Hct MCV MCH RDW Plt Count Lymph % (Auto) [place] % (Auto) Eos % (Auto) [place] # Seg Neutrophils % Seg Neuts % (Manual) Lymphocytes % (Manual) Seg Neutrophils # Seg Neutrophils # Man Lymphocytes # (Manual) APTT POC ABG pH ABG pH POC ABG pCO2 POC ABG pO2 ABG pO2 ABG HCO3 ABG Base Excess ABG Hemoglobin VBG pH Oxyhemoglobin Sodium Potassium Chloride Carbon Dioxide BUN Creatinine Glucose POC Glucose 284 H 218 H 192 H Lactic Acid Calcium AST ALT Alkaline Phosphatase CK-MB (CK-2) CK-MB (CK-2) Rel Index Total Protein Albumin TSH Urine WBC (Auto) Salicylates 10/18/17 10/18/17 10/18/17 05:33 12:17 17:50 WBC RBC Hgb Hct MCV MCH RDW Plt Count Lymph % (Auto) [place] % (Auto) Eos % (Auto) [place] # Seg Neutrophils % Seg Neuts % (Manual) Lymphocytes % (Manual) Seg Neutrophils # Seg Neutrophils # Man Lymphocytes # (Manual) APTT POC ABG pH ABG pH POC ABG pCO2 POC ABG pO2 ABG pO2 ABG HCO3 ABG Base Excess ABG Hemoglobin VBG pH Oxyhemoglobin Sodium Potassium Chloride Carbon Dioxide BUN Creatinine Glucose POC Glucose 199 H 227 H 229 H Lactic Acid Calcium AST ALT Alkaline Phosphatase CK-MB (CK-2) CK-MB (CK-2) Rel Index Total Protein Albumin TSH Urine WBC (Auto) Salicylates 01/26/17 01/27/17 01/27/17 23:57 05:31 11:42 WBC RBC Hgb Hct MCV MCH RDW Plt Count Lymph % (Auto) [place] % (Auto) Eos % (Auto) [place] # Seg Neutrophils % Seg Neuts % (Manual) Lymphocytes % (Manual) Seg Neutrophils # Seg Neutrophils # Man Lymphocytes # (Manual) APTT POC ABG pH ABG pH POC ABG pCO2 POC ABG pO2 ABG pO2 ABG HCO3 ABG Base Excess ABG Hemoglobin VBG pH Oxyhemoglobin Sodium Potassium Chloride Carbon Dioxide BUN Creatinine Glucose POC Glucose 186 H 285 H 260 H Lactic Acid Calcium AST ALT Alkaline Phosphatase CK-MB (CK-2) CK-MB (CK-2) Rel Index Total Protein Albumin TSH Urine WBC (Auto) Salicylates 01/27/17 01/27/17 01/27/17 17:47 23:58 Unknown WBC 12.1 H RBC 3.28 L Hgb 8.5 L Hct 25.5 L MCV 78 L MCH 26 L RDW 16.8 H Plt Count 601 H Lymph % (Auto) [place] % (Auto) Eos % (Auto) [place] # Seg Neutrophils % Seg Neuts % (Manual) Lymphocytes % (Manual) Seg Neutrophils # Seg Neutrophils # Man Lymphocytes # (Manual) APTT POC ABG pH ABG pH POC ABG pCO2 POC ABG pO2 ABG pO2 ABG HCO3 ABG Base Excess ABG Hemoglobin VBG pH Oxyhemoglobin Sodium Potassium Chloride Carbon Dioxide BUN Creatinine Glucose POC Glucose 329 H 225 H Lactic Acid Calcium AST ALT Alkaline Phosphatase CK-MB (CK-2) CK-MB (CK-2) Rel Index Total Protein Albumin TSH Urine WBC (Auto) Salicylates 01/27/17 01/28/17 01/28/17 Unknown 03:44 03:44 WBC RBC 3.14 L Hgb 8.2 L Hct 24.1 L MCV 77 L MCH 26 L RDW 16.9 H Plt Count 567 H Lymph % (Auto) [place] % (Auto) Eos % (Auto) [place] # Seg Neutrophils % Seg Neuts % (Manual) Lymphocytes % (Manual) Seg Neutrophils # Seg Neutrophils # Man Lymphocytes # (Manual) APTT POC ABG pH ABG pH POC ABG pCO2 POC ABG pO2 ABG pO2 ABG HCO3 ABG Base Excess ABG Hemoglobin VBG pH Oxyhemoglobin Sodium 128 L Potassium 5.4 H Chloride 87.5 L Carbon Dioxide BUN 44 H 42 H Creatinine Glucose 250 H 128 H POC Glucose Lactic Acid Calcium AST ALT Alkaline Phosphatase CK-MB (CK-2) CK-MB (CK-2) Rel Index Total Protein Albumin TSH Urine WBC (Auto) Salicylates 01/28/17 01/28/17 01/28/17 11:43 16:47 17:52 WBC RBC Hgb Hct MCV MCH RDW Plt Count Lymph % (Auto) [place] % (Auto) Eos % (Auto) [place] # Seg Neutrophils % Seg Neuts % (Manual) Lymphocytes % (Manual) Seg Neutrophils # Seg Neutrophils # Man Lymphocytes # (Manual) APTT POC ABG pH ABG pH POC ABG pCO2 POC ABG pO2 ABG pO2 ABG HCO3 ABG Base Excess ABG Hemoglobin VBG pH Oxyhemoglobin Sodium Potassium Chloride Carbon Dioxide BUN Creatinine Glucose POC Glucose 351 H 249 H Lactic Acid Calcium AST ALT Alkaline Phosphatase CK-MB (CK-2) CK-MB (CK-2) Rel Index Total Protein Albumin TSH Urine WBC (Auto) > 182.0 H Salicylates 01/29/17 01/29/17 01/29/17 05:25 05:25 09:32 WBC 13.6 H RBC 3.25 L Hgb 8.3 L Hct 25.1 L MCV 77 L MCH 26 L RDW 16.8 H Plt Count 514 H Lymph % (Auto) [place] % (Auto) Eos % (Auto) [place] # Seg Neutrophils % Seg Neuts % (Manual) Lymphocytes % (Manual) Seg Neutrophils # Seg Neutrophils # Man Lymphocytes # (Manual) APTT POC ABG pH ABG pH POC ABG pCO2 POC ABG pO2 ABG pO2 ABG HCO3 ABG Base Excess ABG Hemoglobin VBG pH Oxyhemoglobin Sodium Potassium Chloride 97.8 L Carbon Dioxide BUN 34 H Creatinine Glucose 222 H POC Glucose Lactic Acid 2.50 H* Calcium AST ALT Alkaline Phosphatase CK-MB (CK-2) CK-MB (CK-2) Rel Index Total Protein Albumin TSH Urine WBC (Auto) Salicylates 01/29/17 01/29/17 01/29/17 11:56 18:11 23:55 WBC RBC Hgb Hct MCV MCH RDW Plt Count Lymph % (Auto) [place] % (Auto) Eos % (Auto) [place] # Seg Neutrophils % Seg Neuts % (Manual) Lymphocytes % (Manual) Seg Neutrophils # Seg Neutrophils # Man Lymphocytes # (Manual) APTT POC ABG pH ABG pH POC ABG pCO2 POC ABG pO2 ABG pO2 ABG HCO3 ABG Base Excess ABG Hemoglobin VBG pH Oxyhemoglobin Sodium Potassium Chloride Carbon Dioxide BUN Creatinine Glucose POC Glucose 261 H 215 H 176 H Lactic Acid Calcium AST ALT Alkaline Phosphatase CK-MB (CK-2) CK-MB (CK-2) Rel Index Total Protein Albumin TSH Urine WBC (Auto) Salicylates 01/30/17 01/30/17 01/30/17 05:31 05:31 05:34 WBC 15.2 H RBC 3.09 L Hgb 7.9 L Hct 23.9 L MCV 77 L MCH 26 L RDW 16.9 H Plt Count 569 H Lymph % (Auto) [place] % (Auto) Eos % (Auto) [place] # Seg Neutrophils % Seg Neuts % (Manual) Lymphocytes % (Manual) Seg Neutrophils # Seg Neutrophils # Man Lymphocytes # (Manual) APTT POC ABG pH ABG pH POC ABG pCO2 POC ABG pO2 ABG pO2 ABG HCO3 ABG Base Excess ABG Hemoglobin VBG pH Oxyhemoglobin Sodium Potassium Chloride Carbon Dioxide BUN 24 H Creatinine Glucose 235 H POC Glucose 243 H Lactic Acid Calcium AST ALT Alkaline Phosphatase CK-MB (CK-2) CK-MB (CK-2) Rel Index Total Protein Albumin TSH Urine WBC (Auto) Salicylates 01/30/17 01/30/17 01/30/17 11:38 17:58 23:29 WBC RBC Hgb Hct MCV MCH RDW Plt Count Lymph % (Auto) [place] % (Auto) Eos % (Auto) [place] # Seg Neutrophils % Seg Neuts % (Manual) Lymphocytes % (Manual) Seg Neutrophils # Seg Neutrophils # Man Lymphocytes # (Manual) APTT POC ABG pH ABG pH POC ABG pCO2 POC ABG pO2 ABG pO2 ABG HCO3 ABG Base Excess ABG Hemoglobin VBG pH Oxyhemoglobin Sodium Potassium Chloride Carbon Dioxide BUN Creatinine Glucose POC Glucose 298 H 208 H 245 H Lactic Acid Calcium AST ALT Alkaline Phosphatase CK-MB (CK-2) CK-MB (CK-2) Rel Index Total Protein Albumin TSH Urine WBC (Auto) Salicylates 01/31/17 01/31/17 01/31/17 04:39 04:39 05:57 WBC 11.4 H RBC 3.22 L Hgb 8.2 L Hct 24.9 L MCV 78 L MCH 25 L RDW 17.2 H Plt Count 576 H Lymph % (Auto) [place] % (Auto) Eos % (Auto) [place] # Seg Neutrophils % Seg Neuts % (Manual) Lymphocytes % (Manual) Seg Neutrophils # Seg Neutrophils # Man Lymphocytes # (Manual) APTT POC ABG pH ABG pH POC ABG pCO2 POC ABG pO2 ABG pO2 ABG HCO3 ABG Base Excess ABG Hemoglobin VBG pH Oxyhemoglobin Sodium Potassium Chloride Carbon Dioxide BUN Creatinine 0.7 L Glucose 223 H POC Glucose 264 H Lactic Acid Calcium AST ALT Alkaline Phosphatase CK-MB (CK-2) CK-MB (CK-2) Rel Index Total Protein Albumin TSH Urine WBC (Auto) Salicylates 01/31/17 01/31/17 01/31/17 12:23 17:41 18:55 WBC RBC Hgb Hct MCV MCH RDW Plt Count Lymph % (Auto) [place] % (Auto) Eos % (Auto) [place] # Seg Neutrophils % Seg Neuts % (Manual) Lymphocytes % (Manual) Seg Neutrophils # Seg Neutrophils # Man Lymphocytes # (Manual) APTT POC ABG pH ABG pH POC ABG pCO2 32.8 L POC ABG pO2 ABG pO2 ABG HCO3 ABG Base Excess ABG Hemoglobin VBG pH Oxyhemoglobin Sodium Potassium Chloride Carbon Dioxide BUN Creatinine Glucose POC Glucose 252 H 208 H Lactic Acid Calcium AST ALT Alkaline Phosphatase CK-MB (CK-2) CK-MB (CK-2) Rel Index Total Protein Albumin TSH Urine WBC (Auto) Salicylates 01/31/17 02/01/17 02/01/17 22:59 03:38 03:38 WBC RBC 2.81 L Hgb 7.4 L Hct 22.1 L MCV 79 L MCH 27 L RDW 17.0 H Plt Count 540 H Lymph % (Auto) [place] % (Auto) Eos % (Auto) [place] # Seg Neutrophils % Seg Neuts % (Manual) Lymphocytes % (Manual) Seg Neutrophils # Seg Neutrophils # Man Lymphocytes # (Manual) APTT POC ABG pH ABG pH POC ABG pCO2 POC ABG pO2 ABG pO2 ABG HCO3 ABG Base Excess ABG Hemoglobin VBG pH Oxyhemoglobin Sodium Potassium Chloride Carbon Dioxide 21 L BUN Creatinine 0.7 L Glucose POC Glucose 40 L Lactic Acid Calcium AST ALT Alkaline Phosphatase CK-MB (CK-2) CK-MB (CK-2) Rel Index Total Protein Albumin TSH Urine WBC (Auto) Salicylates 02/01/17 02/01/17 02/01/17 05:17 12:19 16:44 WBC RBC Hgb Hct MCV MCH RDW Plt Count Lymph % (Auto) [place] % (Auto) Eos % (Auto) [place] # Seg Neutrophils % Seg Neuts % (Manual) Lymphocytes % (Manual) Seg Neutrophils # Seg Neutrophils # Man Lymphocytes # (Manual) APTT POC ABG pH ABG pH POC ABG pCO2 POC ABG pO2 ABG pO2 ABG HCO3 ABG Base Excess ABG Hemoglobin VBG pH Oxyhemoglobin Sodium Potassium Chloride Carbon Dioxide BUN Creatinine Glucose POC Glucose 140 H 213 H 172 H Lactic Acid Calcium AST ALT Alkaline Phosphatase CK-MB (CK-2) CK-MB (CK-2) Rel Index Total Protein Albumin TSH Urine WBC (Auto) Salicylates 02/01/17 02/02/17 02/02/17 23:59 05:14 11:24 WBC RBC Hgb Hct MCV MCH RDW Plt Count Lymph % (Auto) [place] % (Auto) Eos % (Auto) [place] # Seg Neutrophils % Seg Neuts % (Manual) Lymphocytes % (Manual) Seg Neutrophils # Seg Neutrophils # Man Lymphocytes # (Manual) APTT POC ABG pH ABG pH POC ABG pCO2 POC ABG pO2 ABG pO2 ABG HCO3 ABG Base Excess ABG Hemoglobin VBG pH Oxyhemoglobin Sodium Potassium Chloride Carbon Dioxide BUN Creatinine Glucose POC Glucose 181 H 194 H 209 H Lactic Acid Calcium AST ALT Alkaline Phosphatase CK-MB (CK-2) CK-MB (CK-2) Rel Index Total Protein Albumin TSH Urine WBC (Auto) Salicylates 02/02/17 02/02/17 02/02/17 11:46 11:46 17:47 WBC RBC 2.94 L Hgb 7.5 L Hct 23.0 L MCV 78 L MCH 25 L RDW 16.9 H Plt Count 520 H Lymph % (Auto) [place] % (Auto) Eos % (Auto) [place] # Seg Neutrophils % Seg Neuts % (Manual) Lymphocytes % (Manual) Seg Neutrophils # Seg Neutrophils # Man Lymphocytes # (Manual) APTT POC ABG pH ABG pH POC ABG pCO2 POC ABG pO2 ABG pO2 ABG HCO3 ABG Base Excess ABG Hemoglobin VBG pH Oxyhemoglobin Sodium Potassium Chloride Carbon Dioxide BUN Creatinine 0.6 L Glucose 189 H POC Glucose 147 H Lactic Acid Calcium 8.1 L AST ALT Alkaline Phosphatase CK-MB (CK-2) CK-MB (CK-2) Rel Index Total Protein Albumin TSH Urine WBC (Auto) Salicylates 02/02/17 02/03/17 02/03/17 23:32 05:53 11:19 WBC RBC Hgb Hct MCV MCH RDW Plt Count Lymph % (Auto) [place] % (Auto) Eos % (Auto) [place] # Seg Neutrophils % Seg Neuts % (Manual) Lymphocytes % (Manual) Seg Neutrophils # Seg Neutrophils # Man Lymphocytes # (Manual) APTT POC ABG pH ABG pH POC ABG pCO2 POC ABG pO2 ABG pO2 ABG HCO3 ABG Base Excess ABG Hemoglobin VBG pH Oxyhemoglobin Sodium Potassium Chloride Carbon Dioxide BUN Creatinine Glucose POC Glucose 176 H 224 H 228 H Lactic Acid Calcium AST ALT Alkaline Phosphatase CK-MB (CK-2) CK-MB (CK-2) Rel Index Total Protein Albumin TSH Urine WBC (Auto) Salicylates 02/03/17 02/03/17 02/04/17 16:59 23:38 05:45 WBC RBC Hgb Hct MCV MCH RDW Plt Count Lymph % (Auto) [place] % (Auto) Eos % (Auto) [place] # Seg Neutrophils % Seg Neuts % (Manual) Lymphocytes % (Manual) Seg Neutrophils # Seg Neutrophils # Man Lymphocytes # (Manual) APTT POC ABG pH ABG pH POC ABG pCO2 POC ABG pO2 ABG pO2 ABG HCO3 ABG Base Excess ABG Hemoglobin VBG pH Oxyhemoglobin Sodium Potassium Chloride Carbon Dioxide BUN Creatinine Glucose POC Glucose 189 H 191 H 251 H Lactic Acid Calcium AST ALT Alkaline Phosphatase CK-MB (CK-2) CK-MB (CK-2) Rel Index Total Protein Albumin TSH Urine WBC (Auto) Salicylates 02/04/17 02/04/17 02/05/17 11:20 17:20 00:17 WBC RBC Hgb Hct MCV MCH RDW Plt Count Lymph % (Auto) [place] % (Auto) Eos % (Auto) [place] # Seg Neutrophils % Seg Neuts % (Manual) Lymphocytes % (Manual) Seg Neutrophils # Seg Neutrophils # Man Lymphocytes # (Manual) APTT POC ABG pH ABG pH POC ABG pCO2 POC ABG pO2 ABG pO2 ABG HCO3 ABG Base Excess ABG Hemoglobin VBG pH Oxyhemoglobin Sodium Potassium Chloride Carbon Dioxide BUN Creatinine Glucose POC Glucose 243 H 163 H 200 H Lactic Acid Calcium AST ALT Alkaline Phosphatase CK-MB (CK-2) CK-MB (CK-2) Rel Index Total Protein Albumin TSH Urine WBC (Auto) Salicylates 02/05/17 02/05/17 02/05/17 05:38 12:38 16:29 WBC RBC Hgb Hct MCV MCH RDW Plt Count Lymph % (Auto) [place] % (Auto) Eos % (Auto) [place] # Seg Neutrophils % Seg Neuts % (Manual) Lymphocytes % (Manual) Seg Neutrophils # Seg Neutrophils # Man Lymphocytes # (Manual) APTT POC ABG pH ABG pH POC ABG pCO2 POC ABG pO2 ABG pO2 ABG HCO3 ABG Base Excess ABG Hemoglobin VBG pH Oxyhemoglobin Sodium Potassium Chloride Carbon Dioxide BUN Creatinine Glucose POC Glucose 248 H 241 H 257 H Lactic Acid Calcium AST ALT Alkaline Phosphatase CK-MB (CK-2) CK-MB (CK-2) Rel Index Total Protein Albumin TSH Urine WBC (Auto) Salicylates 02/05/17 02/06/17 02/06/17 23:56 05:30 11:50 WBC RBC Hgb Hct MCV MCH RDW Plt Count Lymph % (Auto) [place] % (Auto) Eos % (Auto) [place] # Seg Neutrophils % Seg Neuts % (Manual) Lymphocytes % (Manual) Seg Neutrophils # Seg Neutrophils # Man Lymphocytes # (Manual) APTT POC ABG pH ABG pH POC ABG pCO2 POC ABG pO2 ABG pO2 ABG HCO3 ABG Base Excess ABG Hemoglobin VBG pH Oxyhemoglobin Sodium Potassium Chloride Carbon Dioxide BUN Creatinine Glucose POC Glucose 258 H 120 H 254 H Lactic Acid Calcium AST ALT Alkaline Phosphatase CK-MB (CK-2) CK-MB (CK-2) Rel Index Total Protein Albumin TSH Urine WBC (Auto) Salicylates 02/06/17 02/06/17 02/07/17 17:11 23:50 05:22 WBC RBC Hgb Hct MCV MCH RDW Plt Count Lymph % (Auto) [place] % (Auto) Eos % (Auto) [place] # Seg Neutrophils % Seg Neuts % (Manual) Lymphocytes % (Manual) Seg Neutrophils # Seg Neutrophils # Man Lymphocytes # (Manual) APTT POC ABG pH ABG pH POC ABG pCO2 POC ABG pO2 ABG pO2 ABG HCO3 ABG Base Excess ABG Hemoglobin VBG pH Oxyhemoglobin Sodium Potassium Chloride Carbon Dioxide BUN Creatinine Glucose POC Glucose 149 H 240 H 258 H Lactic Acid Calcium AST ALT Alkaline Phosphatase CK-MB (CK-2) CK-MB (CK-2) Rel Index Total Protein Albumin TSH Urine WBC (Auto) Salicylates 02/07/17 02/07/17 02/07/17 11:15 18:33 23:59 WBC RBC Hgb Hct MCV MCH RDW Plt Count Lymph % (Auto) [place] % (Auto) Eos % (Auto) [place] # Seg Neutrophils % Seg Neuts % (Manual) Lymphocytes % (Manual) Seg Neutrophils # Seg Neutrophils # Man Lymphocytes # (Manual) APTT POC ABG pH ABG pH POC ABG pCO2 POC ABG pO2 ABG pO2 ABG HCO3 ABG Base Excess ABG Hemoglobin VBG pH Oxyhemoglobin Sodium Potassium Chloride Carbon Dioxide BUN Creatinine Glucose POC Glucose 239 H 176 H 186 H Lactic Acid Calcium AST ALT Alkaline Phosphatase CK-MB (CK-2) CK-MB (CK-2) Rel Index Total Protein Albumin TSH Urine WBC (Auto) Salicylates 02/08/17 02/08/17 02/08/17 06:15 11:55 16:55 WBC RBC Hgb Hct MCV MCH RDW Plt Count Lymph % (Auto) [place] % (Auto) Eos % (Auto) [place] # Seg Neutrophils % Seg Neuts % (Manual) Lymphocytes % (Manual) Seg Neutrophils # Seg Neutrophils # Man Lymphocytes # (Manual) APTT POC ABG pH ABG pH POC ABG pCO2 POC ABG pO2 ABG pO2 ABG HCO3 ABG Base Excess ABG Hemoglobin VBG pH Oxyhemoglobin Sodium Potassium Chloride Carbon Dioxide BUN Creatinine Glucose POC Glucose 195 H 129 H 246 H Lactic Acid Calcium AST ALT Alkaline Phosphatase CK-MB (CK-2) CK-MB (CK-2) Rel Index Total Protein Albumin TSH Urine WBC (Auto) Salicylates 02/08/17 02/09/17 02/09/17 23:51 05:51 07:24 WBC 14.7 H RBC 3.39 L Hgb 8.9 L Hct 26.4 L MCV 78 L MCH 26 L RDW 18.4 H Plt Count 670 H Lymph % (Auto) 11.8 L [place] % (Auto) Eos % (Auto) [place] # Seg Neutrophils % 81.2 H Seg Neuts % (Manual) Lymphocytes % (Manual) Seg Neutrophils # 11.9 H Seg Neutrophils # Man Lymphocytes # (Manual) APTT POC ABG pH ABG pH POC ABG pCO2 POC ABG pO2 ABG pO2 ABG HCO3 ABG Base Excess ABG Hemoglobin VBG pH Oxyhemoglobin Sodium Potassium Chloride Carbon Dioxide BUN Creatinine Glucose POC Glucose 262 H 295 H Lactic Acid Calcium AST ALT Alkaline Phosphatase CK-MB (CK-2) CK-MB (CK-2) Rel Index Total Protein Albumin TSH Urine WBC (Auto) Salicylates 02/09/17 02/09/17 02/09/17 07:24 12:08 18:39 WBC RBC Hgb Hct MCV MCH RDW Plt Count Lymph % (Auto) [place] % (Auto) Eos % (Auto) [place] # Seg Neutrophils % Seg Neuts % (Manual) Lymphocytes % (Manual) Seg Neutrophils # Seg Neutrophils # Man Lymphocytes # (Manual) APTT POC ABG pH ABG pH POC ABG pCO2 POC ABG pO2 ABG pO2 ABG HCO3 ABG Base Excess ABG Hemoglobin VBG pH Oxyhemoglobin Sodium Potassium Chloride 95.5 L Carbon Dioxide BUN 52 H Creatinine Glucose 277 H POC Glucose 236 H 151 H Lactic Acid Calcium AST ALT Alkaline Phosphatase CK-MB (CK-2) CK-MB (CK-2) Rel Index Total Protein Albumin TSH Urine WBC (Auto) Salicylates 02/10/17 02/10/17 02/10/17 00:01 05:44 11:21 WBC RBC Hgb Hct MCV MCH RDW Plt Count Lymph % (Auto) [place] % (Auto) Eos % (Auto) [place] # Seg Neutrophils % Seg Neuts % (Manual) Lymphocytes % (Manual) Seg Neutrophils # Seg Neutrophils # Man Lymphocytes # (Manual) APTT POC ABG pH ABG pH POC ABG pCO2 POC ABG pO2 ABG pO2 ABG HCO3 ABG Base Excess ABG Hemoglobin VBG pH Oxyhemoglobin Sodium Potassium Chloride Carbon Dioxide BUN Creatinine Glucose POC Glucose 210 H 201 H 233 H Lactic Acid Calcium AST ALT Alkaline Phosphatase CK-MB (CK-2) CK-MB (CK-2) Rel Index Total Protein Albumin TSH Urine WBC (Auto) Salicylates 02/10/17 02/10/17 02/11/17 17:29 23:56 05:24 WBC RBC Hgb Hct MCV MCH RDW Plt Count Lymph % (Auto) [place] % (Auto) Eos % (Auto) [place] # Seg Neutrophils % Seg Neuts % (Manual) Lymphocytes % (Manual) Seg Neutrophils # Seg Neutrophils # Man Lymphocytes # (Manual) APTT POC ABG pH ABG pH POC ABG pCO2 POC ABG pO2 ABG pO2 ABG HCO3 ABG Base Excess ABG Hemoglobin VBG pH Oxyhemoglobin Sodium Potassium Chloride Carbon Dioxide BUN Creatinine Glucose POC Glucose 167 H 191 H 135 H Lactic Acid Calcium AST ALT Alkaline Phosphatase CK-MB (CK-2) CK-MB (CK-2) Rel Index Total Protein Albumin TSH Urine WBC (Auto) Salicylates 02/11/17 02/11/17 02/11/17 12:25 17:03 23:59 WBC RBC Hgb Hct MCV MCH RDW Plt Count Lymph % (Auto) [place] % (Auto) Eos % (Auto) [place] # Seg Neutrophils % Seg Neuts % (Manual) Lymphocytes % (Manual) Seg Neutrophils # Seg Neutrophils # Man Lymphocytes # (Manual) APTT POC ABG pH ABG pH POC ABG pCO2 POC ABG pO2 ABG pO2 ABG HCO3 ABG Base Excess ABG Hemoglobin VBG pH Oxyhemoglobin Sodium Potassium Chloride Carbon Dioxide BUN Creatinine Glucose POC Glucose 275 H 172 H 215 H Lactic Acid Calcium AST ALT Alkaline Phosphatase CK-MB (CK-2) CK-MB (CK-2) Rel Index Total Protein Albumin TSH Urine WBC (Auto) Salicylates 02/12/17 02/12/17 02/12/17 05:39 11:33 17:55 WBC RBC Hgb Hct MCV MCH RDW Plt Count Lymph % (Auto) [place] % (Auto) Eos % (Auto) [place] # Seg Neutrophils % Seg Neuts % (Manual) Lymphocytes % (Manual) Seg Neutrophils # Seg Neutrophils # Man Lymphocytes # (Manual) APTT POC ABG pH ABG pH POC ABG pCO2 POC ABG pO2 ABG pO2 ABG HCO3 ABG Base Excess ABG Hemoglobin VBG pH Oxyhemoglobin Sodium Potassium Chloride Carbon Dioxide BUN Creatinine Glucose POC Glucose 261 H 217 H 172 H Lactic Acid Calcium AST ALT Alkaline Phosphatase CK-MB (CK-2) CK-MB (CK-2) Rel Index Total Protein Albumin TSH Urine WBC (Auto) Salicylates 02/13/17 02/13/17 02/13/17 00:25 06:46 11:26 WBC RBC Hgb Hct MCV MCH RDW Plt Count Lymph % (Auto) [place] % (Auto) Eos % (Auto) [place] # Seg Neutrophils % Seg Neuts % (Manual) Lymphocytes % (Manual) Seg Neutrophils # Seg Neutrophils # Man Lymphocytes # (Manual) APTT POC ABG pH ABG pH POC ABG pCO2 POC ABG pO2 ABG pO2 ABG HCO3 ABG Base Excess ABG Hemoglobin VBG pH Oxyhemoglobin Sodium Potassium Chloride Carbon Dioxide BUN Creatinine Glucose POC Glucose 207 H 219 H 231 H Lactic Acid Calcium AST ALT Alkaline Phosphatase CK-MB (CK-2) CK-MB (CK-2) Rel Index Total Protein Albumin TSH Urine WBC (Auto) Salicylates 02/13/17 02/13/17 02/14/17 17:12 23:44 05:44 WBC RBC Hgb Hct MCV MCH RDW Plt Count Lymph % (Auto) [place] % (Auto) Eos % (Auto) [place] # Seg Neutrophils % Seg Neuts % (Manual) Lymphocytes % (Manual) Seg Neutrophils # Seg Neutrophils # Man Lymphocytes # (Manual) APTT POC ABG pH ABG pH POC ABG pCO2 POC ABG pO2 ABG pO2 ABG HCO3 ABG Base Excess ABG Hemoglobin VBG pH Oxyhemoglobin Sodium Potassium Chloride Carbon Dioxide BUN Creatinine Glucose POC Glucose 190 H 256 H 184 H Lactic Acid Calcium AST ALT Alkaline Phosphatase CK-MB (CK-2) CK-MB (CK-2) Rel Index Total Protein Albumin TSH Urine WBC (Auto) Salicylates 02/14/17 02/14/17 02/14/17 12:21 17:57 23:18 WBC RBC Hgb Hct MCV MCH RDW Plt Count Lymph % (Auto) [place] % (Auto) Eos % (Auto) [place] # Seg Neutrophils % Seg Neuts % (Manual) Lymphocytes % (Manual) Seg Neutrophils # Seg Neutrophils # Man Lymphocytes # (Manual) APTT POC ABG pH ABG pH POC ABG pCO2 POC ABG pO2 ABG pO2 ABG HCO3 ABG Base Excess ABG Hemoglobin VBG pH Oxyhemoglobin Sodium Potassium Chloride Carbon Dioxide BUN Creatinine Glucose POC Glucose 233 H 155 H 165 H Lactic Acid Calcium AST ALT Alkaline Phosphatase CK-MB (CK-2) CK-MB (CK-2) Rel Index Total Protein Albumin TSH Urine WBC (Auto) Salicylates 02/15/17 02/15/17 02/15/17 05:33 11:45 17:20 WBC RBC Hgb Hct MCV MCH RDW Plt Count Lymph % (Auto) [place] % (Auto) Eos % (Auto) [place] # Seg Neutrophils % Seg Neuts % (Manual) Lymphocytes % (Manual) Seg Neutrophils # Seg Neutrophils # Man Lymphocytes # (Manual) APTT POC ABG pH ABG pH POC ABG pCO2 POC ABG pO2 ABG pO2 ABG HCO3 ABG Base Excess ABG Hemoglobin VBG pH Oxyhemoglobin Sodium Potassium Chloride Carbon Dioxide BUN Creatinine Glucose POC Glucose 239 H 130 H 189 H Lactic Acid Calcium AST ALT Alkaline Phosphatase CK-MB (CK-2) CK-MB (CK-2) Rel Index Total Protein Albumin TSH Urine WBC (Auto) Salicylates 02/16/17 02/16/17 02/16/17 00:14 05:09 12:31 WBC RBC Hgb Hct MCV MCH RDW Plt Count Lymph % (Auto) [place] % (Auto) Eos % (Auto) [place] # Seg Neutrophils % Seg Neuts % (Manual) Lymphocytes % (Manual) Seg Neutrophils # Seg Neutrophils # Man Lymphocytes # (Manual) APTT POC ABG pH ABG pH POC ABG pCO2 POC ABG pO2 ABG pO2 ABG HCO3 ABG Base Excess ABG Hemoglobin VBG pH Oxyhemoglobin Sodium Potassium Chloride Carbon Dioxide BUN Creatinine Glucose POC Glucose 197 H 226 H 178 H Lactic Acid Calcium AST ALT Alkaline Phosphatase CK-MB (CK-2) CK-MB (CK-2) Rel Index Total Protein Albumin TSH Urine WBC (Auto) Salicylates 02/16/17 02/16/17 02/17/17 16:35 23:49 05:37 WBC RBC Hgb Hct MCV MCH RDW Plt Count Lymph % (Auto) [place] % (Auto) Eos % (Auto) [place] # Seg Neutrophils % Seg Neuts % (Manual) Lymphocytes % (Manual) Seg Neutrophils # Seg Neutrophils # Man Lymphocytes # (Manual) APTT POC ABG pH ABG pH POC ABG pCO2 POC ABG pO2 ABG pO2 ABG HCO3 ABG Base Excess ABG Hemoglobin VBG pH Oxyhemoglobin Sodium Potassium Chloride Carbon Dioxide BUN Creatinine Glucose POC Glucose 174 H 62 L 153 H Lactic Acid Calcium AST ALT Alkaline Phosphatase CK-MB (CK-2) CK-MB (CK-2) Rel Index Total Protein Albumin TSH Urine WBC (Auto) Salicylates 02/17/17 02/17/17 02/17/17 11:39 17:02 22:24 WBC RBC Hgb Hct MCV MCH RDW Plt Count Lymph % (Auto) [place] % (Auto) Eos % (Auto) [place] # Seg Neutrophils % Seg Neuts % (Manual) Lymphocytes % (Manual) Seg Neutrophils # Seg Neutrophils # Man Lymphocytes # (Manual) APTT POC ABG pH ABG pH POC ABG pCO2 POC ABG pO2 ABG pO2 ABG HCO3 ABG Base Excess ABG Hemoglobin VBG pH Oxyhemoglobin Sodium Potassium Chloride Carbon Dioxide BUN Creatinine Glucose POC Glucose 231 H 112 H 116 H Lactic Acid Calcium AST ALT Alkaline Phosphatase CK-MB (CK-2) CK-MB (CK-2) Rel Index Total Protein Albumin TSH Urine WBC (Auto) Salicylates 02/18/17 02/19/17 02/19/17 15:34 05:09 07:57 WBC RBC Hgb Hct MCV MCH RDW Plt Count Lymph % (Auto) [place] % (Auto) Eos % (Auto) [place] # Seg Neutrophils % Seg Neuts % (Manual) Lymphocytes % (Manual) Seg Neutrophils # Seg Neutrophils # Man Lymphocytes # (Manual) APTT POC ABG pH ABG pH POC ABG pCO2 POC ABG pO2 ABG pO2 ABG HCO3 ABG Base Excess ABG Hemoglobin VBG pH Oxyhemoglobin Sodium Potassium Chloride Carbon Dioxide BUN Creatinine Glucose POC Glucose 215 H 218 H 283 H Lactic Acid Calcium AST ALT Alkaline Phosphatase CK-MB (CK-2) CK-MB (CK-2) Rel Index Total Protein Albumin TSH Urine WBC (Auto) Salicylates 02/19/17 02/19/17 02/20/17 14:49 22:10 05:10 WBC RBC Hgb Hct MCV MCH RDW Plt Count Lymph % (Auto) [place] % (Auto) Eos % (Auto) [place] # Seg Neutrophils % Seg Neuts % (Manual) Lymphocytes % (Manual) Seg Neutrophils # Seg Neutrophils # Man Lymphocytes # (Manual) APTT POC ABG pH ABG pH POC ABG pCO2 POC ABG pO2 ABG pO2 ABG HCO3 ABG Base Excess ABG Hemoglobin VBG pH Oxyhemoglobin Sodium Potassium Chloride Carbon Dioxide BUN Creatinine Glucose POC Glucose 290 H 169 H 209 H Lactic Acid Calcium AST ALT Alkaline Phosphatase CK-MB (CK-2) CK-MB (CK-2) Rel Index Total Protein Albumin TSH Urine WBC (Auto) Salicylates 02/20/17 02/20/17 02/21/17 15:05 21:52 02:00 WBC RBC Hgb Hct MCV MCH RDW Plt Count Lymph % (Auto) [place] % (Auto) Eos % (Auto) [place] # Seg Neutrophils % Seg Neuts % (Manual) Lymphocytes % (Manual) Seg Neutrophils # Seg Neutrophils # Man Lymphocytes # (Manual) APTT POC ABG pH ABG pH POC ABG pCO2 POC ABG pO2 ABG pO2 ABG HCO3 ABG Base Excess ABG Hemoglobin VBG pH Oxyhemoglobin Sodium Potassium Chloride Carbon Dioxide BUN Creatinine Glucose POC Glucose 172 H 209 H 216 H Lactic Acid Calcium AST ALT Alkaline Phosphatase CK-MB (CK-2) CK-MB (CK-2) Rel Index Total Protein Albumin TSH Urine WBC (Auto) Salicylates 02/21/17 02/21/17 02/21/17 04:54 14:43 17:47 WBC RBC Hgb Hct MCV MCH RDW Plt Count Lymph % (Auto) [place] % (Auto) Eos % (Auto) [place] # Seg Neutrophils % Seg Neuts % (Manual) Lymphocytes % (Manual) Seg Neutrophils # Seg Neutrophils # Man Lymphocytes # (Manual) APTT POC ABG pH ABG pH POC ABG pCO2 POC ABG pO2 ABG pO2 ABG HCO3 ABG Base Excess ABG Hemoglobin VBG pH Oxyhemoglobin Sodium Potassium Chloride Carbon Dioxide BUN Creatinine Glucose POC Glucose 227 H 290 H 220 H Lactic Acid Calcium AST ALT Alkaline Phosphatase CK-MB (CK-2) CK-MB (CK-2) Rel Index Total Protein Albumin TSH Urine WBC (Auto) Salicylates 02/21/17 02/22/17 02/22/17 22:02 04:52 15:25 WBC RBC Hgb Hct MCV MCH RDW Plt Count Lymph % (Auto) [place] % (Auto) Eos % (Auto) [place] # Seg Neutrophils % Seg Neuts % (Manual) Lymphocytes % (Manual) Seg Neutrophils # Seg Neutrophils # Man Lymphocytes # (Manual) APTT POC ABG pH ABG pH POC ABG pCO2 POC ABG pO2 ABG pO2 ABG HCO3 ABG Base Excess ABG Hemoglobin VBG pH Oxyhemoglobin Sodium Potassium Chloride Carbon Dioxide BUN Creatinine Glucose POC Glucose 246 H 212 H 236 H Lactic Acid Calcium AST ALT Alkaline Phosphatase CK-MB (CK-2) CK-MB (CK-2) Rel Index Total Protein Albumin TSH Urine WBC (Auto) Salicylates 02/22/17 02/23/17 02/23/17 21:33 06:04 10:00 WBC RBC Hgb Hct MCV MCH RDW Plt Count Lymph % (Auto) [place] % (Auto) Eos % (Auto) [place] # Seg Neutrophils % Seg Neuts % (Manual) Lymphocytes % (Manual) Seg Neutrophils # Seg Neutrophils # Man Lymphocytes # (Manual) APTT POC ABG pH ABG pH POC ABG pCO2 POC ABG pO2 ABG pO2 ABG HCO3 ABG Base Excess ABG Hemoglobin VBG pH Oxyhemoglobin Sodium Potassium Chloride Carbon Dioxide BUN Creatinine Glucose POC Glucose 255 H 208 H 174 H Lactic Acid Calcium AST ALT Alkaline Phosphatase CK-MB (CK-2) CK-MB (CK-2) Rel Index Total Protein Albumin TSH Urine WBC (Auto) Salicylates 02/23/17 02/23/17 02/23/17 12:52 17:15 21:51 WBC RBC Hgb Hct MCV MCH RDW Plt Count Lymph % (Auto) [place] % (Auto) Eos % (Auto) [place] # Seg Neutrophils % Seg Neuts % (Manual) Lymphocytes % (Manual) Seg Neutrophils # Seg Neutrophils # Man Lymphocytes # (Manual) APTT POC ABG pH ABG pH POC ABG pCO2 POC ABG pO2 ABG pO2 ABG HCO3 ABG Base Excess ABG Hemoglobin VBG pH Oxyhemoglobin Sodium Potassium Chloride Carbon Dioxide BUN Creatinine Glucose POC Glucose 203 H 269 H 205 H Lactic Acid Calcium AST ALT Alkaline Phosphatase CK-MB (CK-2) CK-MB (CK-2) Rel Index Total Protein Albumin TSH Urine WBC (Auto) Salicylates 02/24/17 02/24/17 02/24/17 10:23 17:45 21:24 WBC RBC Hgb Hct MCV MCH RDW Plt Count Lymph % (Auto) [place] % (Auto) Eos % (Auto) [place] # Seg Neutrophils % Seg Neuts % (Manual) Lymphocytes % (Manual) Seg Neutrophils # Seg Neutrophils # Man Lymphocytes # (Manual) APTT POC ABG pH ABG pH POC ABG pCO2 POC ABG pO2 ABG pO2 ABG HCO3 ABG Base Excess ABG Hemoglobin VBG pH Oxyhemoglobin Sodium Potassium Chloride Carbon Dioxide BUN Creatinine Glucose POC Glucose 280 H 239 H 254 H Lactic Acid Calcium AST ALT Alkaline Phosphatase CK-MB (CK-2) CK-MB (CK-2) Rel Index Total Protein Albumin TSH Urine WBC (Auto) Salicylates 02/25/17 02/25/17 02/25/17 02:12 05:17 14:32 WBC RBC Hgb Hct MCV MCH RDW Plt Count Lymph % (Auto) [place] % (Auto) Eos % (Auto) [place] # Seg Neutrophils % Seg Neuts % (Manual) Lymphocytes % (Manual) Seg Neutrophils # Seg Neutrophils # Man Lymphocytes # (Manual) APTT POC ABG pH ABG pH POC ABG pCO2 POC ABG pO2 ABG pO2 ABG HCO3 ABG Base Excess ABG Hemoglobin VBG pH Oxyhemoglobin Sodium Potassium Chloride Carbon Dioxide BUN Creatinine Glucose POC Glucose 296 H 332 H 353 H Lactic Acid Calcium AST ALT Alkaline Phosphatase CK-MB (CK-2) CK-MB (CK-2) Rel Index Total Protein Albumin TSH Urine WBC (Auto) Salicylates 02/25/17 02/26/17 02/26/17 22:14 00:37 05:52 WBC RBC Hgb Hct MCV MCH RDW Plt Count Lymph % (Auto) [place] % (Auto) Eos % (Auto) [place] # Seg Neutrophils % Seg Neuts % (Manual) Lymphocytes % (Manual) Seg Neutrophils # Seg Neutrophils # Man Lymphocytes # (Manual) APTT POC ABG pH ABG pH POC ABG pCO2 POC ABG pO2 ABG pO2 ABG HCO3 ABG Base Excess ABG Hemoglobin VBG pH Oxyhemoglobin Sodium Potassium Chloride Carbon Dioxide BUN Creatinine Glucose POC Glucose 201 H 233 H 269 H Lactic Acid Calcium AST ALT Alkaline Phosphatase CK-MB (CK-2) CK-MB (CK-2) Rel Index Total Protein Albumin TSH Urine WBC (Auto) Salicylates 02/26/17 02/26/17 02/26/17 11:48 13:49 21:26 WBC RBC Hgb Hct MCV MCH RDW Plt Count Lymph % (Auto) [place] % (Auto) Eos % (Auto) [place] # Seg Neutrophils % Seg Neuts % (Manual) Lymphocytes % (Manual) Seg Neutrophils # Seg Neutrophils # Man Lymphocytes # (Manual) APTT POC ABG pH ABG pH POC ABG pCO2 POC ABG pO2 ABG pO2 ABG HCO3 ABG Base Excess ABG Hemoglobin VBG pH Oxyhemoglobin Sodium Potassium Chloride Carbon Dioxide BUN Creatinine Glucose POC Glucose 333 H 322 H 244 H Lactic Acid Calcium AST ALT Alkaline Phosphatase CK-MB (CK-2) CK-MB (CK-2) Rel Index Total Protein Albumin TSH Urine WBC (Auto) Salicylates 02/27/17 02/27/17 02/27/17 05:27 13:51 21:48 WBC RBC Hgb Hct MCV MCH RDW Plt Count Lymph % (Auto) [place] % (Auto) Eos % (Auto) [place] # Seg Neutrophils % Seg Neuts % (Manual) Lymphocytes % (Manual) Seg Neutrophils # Seg Neutrophils # Man Lymphocytes # (Manual) APTT POC ABG pH ABG pH POC ABG pCO2 POC ABG pO2 ABG pO2 ABG HCO3 ABG Base Excess ABG Hemoglobin VBG pH Oxyhemoglobin Sodium Potassium Chloride Carbon Dioxide BUN Creatinine Glucose POC Glucose 217 H 239 H 254 H Lactic Acid Calcium AST ALT Alkaline Phosphatase CK-MB (CK-2) CK-MB (CK-2) Rel Index Total Protein Albumin TSH Urine WBC (Auto) Salicylates 02/28/17 02/28/17 02/28/17 05:38 11:00 19:44 WBC RBC Hgb Hct MCV MCH RDW Plt Count Lymph % (Auto) [place] % (Auto) Eos % (Auto) [place] # Seg Neutrophils % Seg Neuts % (Manual) Lymphocytes % (Manual) Seg Neutrophils # Seg Neutrophils # Man Lymphocytes # (Manual) APTT POC ABG pH ABG pH POC ABG pCO2 POC ABG pO2 ABG pO2 ABG HCO3 ABG Base Excess ABG Hemoglobin VBG pH Oxyhemoglobin Sodium Potassium Chloride Carbon Dioxide BUN Creatinine Glucose POC Glucose 325 H 203 H 116 H Lactic Acid Calcium AST ALT Alkaline Phosphatase CK-MB (CK-2) CK-MB (CK-2) Rel Index Total Protein Albumin TSH Urine WBC (Auto) Salicylates 03/01/17 03/01/17 03/01/17 00:08 05:31 12:17 WBC RBC Hgb Hct MCV MCH RDW Plt Count Lymph % (Auto) [place] % (Auto) Eos % (Auto) [place] # Seg Neutrophils % Seg Neuts % (Manual) Lymphocytes % (Manual) Seg Neutrophils # Seg Neutrophils # Man Lymphocytes # (Manual) APTT POC ABG pH ABG pH POC ABG pCO2 POC ABG pO2 ABG pO2 ABG HCO3 ABG Base Excess ABG Hemoglobin VBG pH Oxyhemoglobin Sodium Potassium Chloride Carbon Dioxide BUN Creatinine Glucose POC Glucose 202 H 183 H 184 H Lactic Acid Calcium AST ALT Alkaline Phosphatase CK-MB (CK-2) CK-MB (CK-2) Rel Index Total Protein Albumin TSH Urine WBC (Auto) Salicylates 03/02/17 03/02/17 03/02/17 00:12 05:58 18:22 WBC RBC Hgb Hct MCV MCH RDW Plt Count Lymph % (Auto) [place] % (Auto) Eos % (Auto) [place] # Seg Neutrophils % Seg Neuts % (Manual) Lymphocytes % (Manual) Seg Neutrophils # Seg Neutrophils # Man Lymphocytes # (Manual) APTT POC ABG pH ABG pH POC ABG pCO2 POC ABG pO2 ABG pO2 ABG HCO3 ABG Base Excess ABG Hemoglobin VBG pH Oxyhemoglobin Sodium Potassium Chloride Carbon Dioxide BUN Creatinine Glucose POC Glucose 117 H 176 H 156 H Lactic Acid Calcium AST ALT Alkaline Phosphatase CK-MB (CK-2) CK-MB (CK-2) Rel Index Total Protein Albumin TSH Urine WBC (Auto) Salicylates 03/02/17 03/03/17 03/03/17 23:51 05:44 11:32 WBC RBC Hgb Hct MCV MCH RDW Plt Count Lymph % (Auto) [place] % (Auto) Eos % (Auto) [place] # Seg Neutrophils % Seg Neuts % (Manual) Lymphocytes % (Manual) Seg Neutrophils # Seg Neutrophils # Man Lymphocytes # (Manual) APTT POC ABG pH ABG pH POC ABG pCO2 POC ABG pO2 ABG pO2 ABG HCO3 ABG Base Excess ABG Hemoglobin VBG pH Oxyhemoglobin Sodium Potassium Chloride Carbon Dioxide BUN Creatinine Glucose POC Glucose 211 H 117 H 133 H Lactic Acid Calcium AST ALT Alkaline Phosphatase CK-MB (CK-2) CK-MB (CK-2) Rel Index Total Protein Albumin TSH Urine WBC (Auto) Salicylates 03/03/17 03/03/17 03/04/17 17:43 23:17 05:30 WBC RBC Hgb Hct MCV MCH RDW Plt Count Lymph % (Auto) [place] % (Auto) Eos % (Auto) [place] # Seg Neutrophils % Seg Neuts % (Manual) Lymphocytes % (Manual) Seg Neutrophils # Seg Neutrophils # Man Lymphocytes # (Manual) APTT POC ABG pH ABG pH POC ABG pCO2 POC ABG pO2 ABG pO2 ABG HCO3 ABG Base Excess ABG Hemoglobin VBG pH Oxyhemoglobin Sodium Potassium Chloride Carbon Dioxide BUN Creatinine Glucose POC Glucose 206 H 170 H 126 H Lactic Acid Calcium AST ALT Alkaline Phosphatase CK-MB (CK-2) CK-MB (CK-2) Rel Index Total Protein Albumin TSH Urine WBC (Auto) Salicylates 03/04/17 03/04/17 03/05/17 12:17 17:27 05:20 WBC RBC Hgb Hct MCV MCH RDW Plt Count Lymph % (Auto) [place] % (Auto) Eos % (Auto) [place] # Seg Neutrophils % Seg Neuts % (Manual) Lymphocytes % (Manual) Seg Neutrophils # Seg Neutrophils # Man Lymphocytes # (Manual) APTT POC ABG pH ABG pH POC ABG pCO2 POC ABG pO2 ABG pO2 ABG HCO3 ABG Base Excess ABG Hemoglobin VBG pH Oxyhemoglobin Sodium Potassium Chloride Carbon Dioxide BUN Creatinine Glucose POC Glucose 135 H 121 H 185 H Lactic Acid Calcium AST ALT Alkaline Phosphatase CK-MB (CK-2) CK-MB (CK-2) Rel Index Total Protein Albumin TSH Urine WBC (Auto) Salicylates 03/05/17 03/06/17 03/06/17 11:50 11:52 17:34 WBC RBC Hgb Hct MCV MCH RDW Plt Count Lymph % (Auto) [place] % (Auto) Eos % (Auto) [place] # Seg Neutrophils % Seg Neuts % (Manual) Lymphocytes % (Manual) Seg Neutrophils # Seg Neutrophils # Man Lymphocytes # (Manual) APTT POC ABG pH ABG pH POC ABG pCO2 POC ABG pO2 ABG pO2 ABG HCO3 ABG Base Excess ABG Hemoglobin VBG pH Oxyhemoglobin Sodium Potassium Chloride Carbon Dioxide BUN Creatinine Glucose POC Glucose 116 H 133 H 181 H Lactic Acid Calcium AST ALT Alkaline Phosphatase CK-MB (CK-2) CK-MB (CK-2) Rel Index Total Protein Albumin TSH Urine WBC (Auto) Salicylates 03/07/17 03/07/17 03/07/17 05:21 11:36 17:49 WBC RBC Hgb Hct MCV MCH RDW Plt Count Lymph % (Auto) [place] % (Auto) Eos % (Auto) [place] # Seg Neutrophils % Seg Neuts % (Manual) Lymphocytes % (Manual) Seg Neutrophils # Seg Neutrophils # Man Lymphocytes # (Manual) APTT POC ABG pH ABG pH POC ABG pCO2 POC ABG pO2 ABG pO2 ABG HCO3 ABG Base Excess ABG Hemoglobin VBG pH Oxyhemoglobin Sodium Potassium Chloride Carbon Dioxide BUN Creatinine Glucose POC Glucose 159 H 137 H 158 H Lactic Acid Calcium AST ALT Alkaline Phosphatase CK-MB (CK-2) CK-MB (CK-2) Rel Index Total Protein Albumin TSH Urine WBC (Auto) Salicylates 03/08/17 03/08/17 03/08/17 05:51 13:58 23:50 WBC RBC Hgb Hct MCV MCH RDW Plt Count Lymph % (Auto) [place] % (Auto) Eos % (Auto) [place] # Seg Neutrophils % Seg Neuts % (Manual) Lymphocytes % (Manual) Seg Neutrophils # Seg Neutrophils # Man Lymphocytes # (Manual) APTT POC ABG pH ABG pH POC ABG pCO2 POC ABG pO2 ABG pO2 ABG HCO3 ABG Base Excess ABG Hemoglobin VBG pH Oxyhemoglobin Sodium Potassium Chloride Carbon Dioxide BUN Creatinine Glucose POC Glucose 122 H 182 H 114 H Lactic Acid Calcium AST ALT Alkaline Phosphatase CK-MB (CK-2) CK-MB (CK-2) Rel Index Total Protein Albumin TSH Urine WBC (Auto) Salicylates 03/09/17 03/09/17 03/09/17 05:21 05:51 05:51 WBC RBC 3.61 L Hgb 9.5 L Hct 28.3 L MCV 79 L MCH 26 L RDW 17.8 H Plt Count Lymph % (Auto) [place] % (Auto) Eos % (Auto) [place] # Seg Neutrophils % Seg Neuts % (Manual) Lymphocytes % (Manual) Seg Neutrophils # Seg Neutrophils # Man Lymphocytes # (Manual) APTT POC ABG pH ABG pH POC ABG pCO2 POC ABG pO2 ABG pO2 ABG HCO3 ABG Base Excess ABG Hemoglobin VBG pH Oxyhemoglobin Sodium 134 L Potassium Chloride 95.5 L Carbon Dioxide BUN 33 H Creatinine 0.5 L Glucose 143 H POC Glucose 153 H Lactic Acid Calcium AST ALT Alkaline Phosphatase CK-MB (CK-2) CK-MB (CK-2) Rel Index Total Protein Albumin TSH Urine WBC (Auto) Salicylates 03/09/17 03/09/17 03/09/17 12:10 18:13 21:00 WBC RBC Hgb Hct MCV MCH RDW Plt Count Lymph % (Auto) [place] % (Auto) Eos % (Auto) [place] # Seg Neutrophils % Seg Neuts % (Manual) Lymphocytes % (Manual) Seg Neutrophils # Seg Neutrophils # Man Lymphocytes # (Manual) APTT POC ABG pH ABG pH POC ABG pCO2 POC ABG pO2 ABG pO2 ABG HCO3 ABG Base Excess ABG Hemoglobin VBG pH Oxyhemoglobin Sodium Potassium Chloride Carbon Dioxide BUN Creatinine Glucose POC Glucose 203 H 221 H 198 H Lactic Acid Calcium AST ALT Alkaline Phosphatase CK-MB (CK-2) CK-MB (CK-2) Rel Index Total Protein Albumin TSH Urine WBC (Auto) Salicylates 03/09/17 03/10/17 03/10/17 23:58 05:09 05:09 WBC RBC Hgb 10.3 L Hct 30.5 L MCV 78 L MCH 26 L RDW 17.9 H Plt Count Lymph % (Auto) [place] % (Auto) 10.0 H Eos % (Auto) 6.0 H [place] # Seg Neutrophils % Seg Neuts % (Manual) Lymphocytes % (Manual) Seg Neutrophils # Seg Neutrophils # Man Lymphocytes # (Manual) APTT POC ABG pH ABG pH POC ABG pCO2 POC ABG pO2 ABG pO2 ABG HCO3 ABG Base Excess ABG Hemoglobin VBG pH Oxyhemoglobin Sodium 132 L Potassium Chloride 92.2 L Carbon Dioxide BUN 33 H Creatinine 0.5 L Glucose 50 L POC Glucose 167 H Lactic Acid Calcium AST ALT Alkaline Phosphatase CK-MB (CK-2) CK-MB (CK-2) Rel Index Total Protein Albumin TSH Urine WBC (Auto) Salicylates 03/10/17 03/10/17 03/10/17 05:33 05:34 11:48 WBC RBC Hgb Hct MCV MCH RDW Plt Count Lymph % (Auto) [place] % (Auto) Eos % (Auto) [place] # Seg Neutrophils % Seg Neuts % (Manual) Lymphocytes % (Manual) Seg Neutrophils # Seg Neutrophils # Man Lymphocytes # (Manual) APTT POC ABG pH ABG pH POC ABG pCO2 POC ABG pO2 ABG pO2 ABG HCO3 ABG Base Excess ABG Hemoglobin VBG pH Oxyhemoglobin Sodium Potassium Chloride Carbon Dioxide BUN Creatinine Glucose POC Glucose 52 L 53 L 148 H Lactic Acid Calcium AST ALT Alkaline Phosphatase CK-MB (CK-2) CK-MB (CK-2) Rel Index Total Protein Albumin TSH Urine WBC (Auto) Salicylates 03/10/17 03/10/17 03/11/17 17:53 23:47 05:18 WBC RBC Hgb Hct MCV MCH RDW Plt Count Lymph % (Auto) [place] % (Auto) Eos % (Auto) [place] # Seg Neutrophils % Seg Neuts % (Manual) Lymphocytes % (Manual) Seg Neutrophils # Seg Neutrophils # Man Lymphocytes # (Manual) APTT POC ABG pH ABG pH POC ABG pCO2 POC ABG pO2 ABG pO2 ABG HCO3 ABG Base Excess ABG Hemoglobin VBG pH Oxyhemoglobin Sodium Potassium Chloride Carbon Dioxide BUN Creatinine Glucose POC Glucose 189 H 398 H 126 H Lactic Acid Calcium AST ALT Alkaline Phosphatase CK-MB (CK-2) CK-MB (CK-2) Rel Index Total Protein Albumin TSH Urine WBC (Auto) Salicylates 03/11/17 03/11/17 03/11/17 11:53 17:30 23:10 WBC RBC Hgb Hct MCV MCH RDW Plt Count Lymph % (Auto) [place] % (Auto) Eos % (Auto) [place] # Seg Neutrophils % Seg Neuts % (Manual) Lymphocytes % (Manual) Seg Neutrophils # Seg Neutrophils # Man Lymphocytes # (Manual) APTT POC ABG pH ABG pH POC ABG pCO2 POC ABG pO2 ABG pO2 ABG HCO3 ABG Base Excess ABG Hemoglobin VBG pH Oxyhemoglobin Sodium Potassium Chloride Carbon Dioxide BUN Creatinine Glucose POC Glucose 198 H 142 H 244 H Lactic Acid Calcium AST ALT Alkaline Phosphatase CK-MB (CK-2) CK-MB (CK-2) Rel Index Total Protein Albumin TSH Urine WBC (Auto) Salicylates 03/12/17 03/12/17 03/12/17 04:36 11:49 17:23 WBC RBC Hgb Hct MCV MCH RDW Plt Count Lymph % (Auto) [place] % (Auto) Eos % (Auto) [place] # Seg Neutrophils % Seg Neuts % (Manual) Lymphocytes % (Manual) Seg Neutrophils # Seg Neutrophils # Man Lymphocytes # (Manual) APTT POC ABG pH ABG pH POC ABG pCO2 POC ABG pO2 ABG pO2 ABG HCO3 ABG Base Excess ABG Hemoglobin VBG pH Oxyhemoglobin Sodium Potassium Chloride Carbon Dioxide BUN Creatinine Glucose POC Glucose 205 H 197 H 209 H Lactic Acid Calcium AST ALT Alkaline Phosphatase CK-MB (CK-2) CK-MB (CK-2) Rel Index Total Protein Albumin TSH Urine WBC (Auto) Salicylates 03/12/17 03/13/17 03/13/17 23:51 05:32 11:43 WBC RBC Hgb Hct MCV MCH RDW Plt Count Lymph % (Auto) [place] % (Auto) Eos % (Auto) [place] # Seg Neutrophils % Seg Neuts % (Manual) Lymphocytes % (Manual) Seg Neutrophils # Seg Neutrophils # Man Lymphocytes # (Manual) APTT POC ABG pH ABG pH POC ABG pCO2 POC ABG pO2 ABG pO2 ABG HCO3 ABG Base Excess ABG Hemoglobin VBG pH Oxyhemoglobin Sodium Potassium Chloride Carbon Dioxide BUN Creatinine Glucose POC Glucose 210 H 154 H 164 H Lactic Acid Calcium AST ALT Alkaline Phosphatase CK-MB (CK-2) CK-MB (CK-2) Rel Index Total Protein Albumin TSH Urine WBC (Auto) Salicylates 03/13/17 03/13/17 03/14/17 17:11 23:26 05:42 WBC RBC Hgb Hct MCV MCH RDW Plt Count Lymph % (Auto) [place] % (Auto) Eos % (Auto) [place] # Seg Neutrophils % Seg Neuts % (Manual) Lymphocytes % (Manual) Seg Neutrophils # Seg Neutrophils # Man Lymphocytes # (Manual) APTT POC ABG pH ABG pH POC ABG pCO2 POC ABG pO2 ABG pO2 ABG HCO3 ABG Base Excess ABG Hemoglobin VBG pH Oxyhemoglobin Sodium Potassium Chloride Carbon Dioxide BUN Creatinine Glucose POC Glucose 195 H 240 H 230 H Lactic Acid Calcium AST ALT Alkaline Phosphatase CK-MB (CK-2) CK-MB (CK-2) Rel Index Total Protein Albumin TSH Urine WBC (Auto) Salicylates 03/14/17 03/14/17 03/14/17 14:04 17:34 23:42 WBC RBC Hgb Hct MCV MCH RDW Plt Count Lymph % (Auto) [place] % (Auto) Eos % (Auto) [place] # Seg Neutrophils % Seg Neuts % (Manual) Lymphocytes % (Manual) Seg Neutrophils # Seg Neutrophils # Man Lymphocytes # (Manual) APTT POC ABG pH ABG pH POC ABG pCO2 POC ABG pO2 ABG pO2 ABG HCO3 ABG Base Excess ABG Hemoglobin VBG pH Oxyhemoglobin Sodium Potassium Chloride Carbon Dioxide BUN Creatinine Glucose POC Glucose 227 H 186 H 225 H Lactic Acid Calcium AST ALT Alkaline Phosphatase CK-MB (CK-2) CK-MB (CK-2) Rel Index Total Protein Albumin TSH Urine WBC (Auto) Salicylates 03/15/17 03/15/17 03/15/17 05:21 17:13 21:37 WBC RBC Hgb Hct MCV MCH RDW Plt Count Lymph % (Auto) [place] % (Auto) Eos % (Auto) [place] # Seg Neutrophils % Seg Neuts % (Manual) Lymphocytes % (Manual) Seg Neutrophils # Seg Neutrophils # Man Lymphocytes # (Manual) APTT POC ABG pH ABG pH POC ABG pCO2 POC ABG pO2 ABG pO2 ABG HCO3 ABG Base Excess ABG Hemoglobin VBG pH Oxyhemoglobin Sodium Potassium Chloride Carbon Dioxide BUN Creatinine Glucose POC Glucose 244 H 203 H 216 H Lactic Acid Calcium AST ALT Alkaline Phosphatase CK-MB (CK-2) CK-MB (CK-2) Rel Index Total Protein Albumin TSH Urine WBC (Auto) Salicylates 03/16/17 03/16/17 03/16/17 05:52 18:07 21:54 WBC RBC Hgb Hct MCV MCH RDW Plt Count Lymph % (Auto) [place] % (Auto) Eos % (Auto) [place] # Seg Neutrophils % Seg Neuts % (Manual) Lymphocytes % (Manual) Seg Neutrophils # Seg Neutrophils # Man Lymphocytes # (Manual) APTT POC ABG pH ABG pH POC ABG pCO2 POC ABG pO2 ABG pO2 ABG HCO3 ABG Base Excess ABG Hemoglobin VBG pH Oxyhemoglobin Sodium Potassium Chloride Carbon Dioxide BUN Creatinine Glucose POC Glucose 248 H 254 H 244 H Lactic Acid Calcium AST ALT Alkaline Phosphatase CK-MB (CK-2) CK-MB (CK-2) Rel Index Total Protein Albumin TSH Urine WBC (Auto) Salicylates 03/17/17 03/17/17 03/17/17 07:07 07:42 07:43 WBC RBC Hgb 9.7 L Hct 29.1 L MCV 78 L MCH 26 L RDW 17.4 H Plt Count Lymph % (Auto) [place] % (Auto) Eos % (Auto) [place] # Seg Neutrophils % Seg Neuts % (Manual) Lymphocytes % (Manual) Seg Neutrophils # Seg Neutrophils # Man Lymphocytes # (Manual) APTT POC ABG pH ABG pH POC ABG pCO2 POC ABG pO2 ABG pO2 ABG HCO3 ABG Base Excess ABG Hemoglobin VBG pH Oxyhemoglobin Sodium Potassium Chloride 96.6 L Carbon Dioxide BUN 30 H Creatinine 0.5 L Glucose 251 H POC Glucose 222 H Lactic Acid Calcium AST ALT Alkaline Phosphatase CK-MB (CK-2) CK-MB (CK-2) Rel Index Total Protein Albumin TSH Urine WBC (Auto) Salicylates 03/17/17 03/17/17 03/18/17 14:08 21:20 14:24 WBC RBC Hgb Hct MCV MCH RDW Plt Count Lymph % (Auto) [place] % (Auto) Eos % (Auto) [place] # Seg Neutrophils % Seg Neuts % (Manual) Lymphocytes % (Manual) Seg Neutrophils # Seg Neutrophils # Man Lymphocytes # (Manual) APTT POC ABG pH ABG pH POC ABG pCO2 POC ABG pO2 ABG pO2 ABG HCO3 ABG Base Excess ABG Hemoglobin VBG pH Oxyhemoglobin Sodium Potassium Chloride Carbon Dioxide BUN Creatinine Glucose POC Glucose 281 H 239 H 195 H Lactic Acid Calcium AST ALT Alkaline Phosphatase CK-MB (CK-2) CK-MB (CK-2) Rel Index Total Protein Albumin TSH Urine WBC (Auto) Salicylates 03/18/17 03/19/17 03/19/17 21:37 04:57 14:23 WBC RBC Hgb Hct MCV MCH RDW Plt Count Lymph % (Auto) [place] % (Auto) Eos % (Auto) [place] # Seg Neutrophils % Seg Neuts % (Manual) Lymphocytes % (Manual) Seg Neutrophils # Seg Neutrophils # Man Lymphocytes # (Manual) APTT POC ABG pH ABG pH POC ABG pCO2 POC ABG pO2 ABG pO2 ABG HCO3 ABG Base Excess ABG Hemoglobin VBG pH Oxyhemoglobin Sodium Potassium Chloride Carbon Dioxide BUN Creatinine Glucose POC Glucose 227 H 205 H 277 H Lactic Acid Calcium AST ALT Alkaline Phosphatase CK-MB (CK-2) CK-MB (CK-2) Rel Index Total Protein Albumin TSH Urine WBC (Auto) Salicylates 03/19/17 03/19/17 03/20/17 20:31 21:47 04:55 WBC RBC Hgb Hct MCV MCH RDW Plt Count Lymph % (Auto) [place] % (Auto) Eos % (Auto) [place] # Seg Neutrophils % Seg Neuts % (Manual) Lymphocytes % (Manual) Seg Neutrophils # Seg Neutrophils # Man Lymphocytes # (Manual) APTT POC ABG pH ABG pH POC ABG pCO2 POC ABG pO2 ABG pO2 ABG HCO3 ABG Base Excess ABG Hemoglobin VBG pH Oxyhemoglobin Sodium Potassium Chloride Carbon Dioxide BUN Creatinine Glucose POC Glucose 256 H 270 H 202 H Lactic Acid Calcium AST ALT Alkaline Phosphatase CK-MB (CK-2) CK-MB (CK-2) Rel Index Total Protein Albumin TSH Urine WBC (Auto) Salicylates 03/20/17 03/20/17 03/21/17 14:09 21:40 05:09 WBC RBC Hgb Hct MCV MCH RDW Plt Count Lymph % (Auto) [place] % (Auto) Eos % (Auto) [place] # Seg Neutrophils % Seg Neuts % (Manual) Lymphocytes % (Manual) Seg Neutrophils # Seg Neutrophils # Man Lymphocytes # (Manual) APTT POC ABG pH ABG pH POC ABG pCO2 POC ABG pO2 ABG pO2 ABG HCO3 ABG Base Excess ABG Hemoglobin VBG pH Oxyhemoglobin Sodium Potassium Chloride Carbon Dioxide BUN Creatinine Glucose POC Glucose 200 H 214 H 233 H Lactic Acid Calcium AST ALT Alkaline Phosphatase CK-MB (CK-2) CK-MB (CK-2) Rel Index Total Protein Albumin TSH Urine WBC (Auto) Salicylates 03/21/17 03/21/17 03/22/17 14:06 21:26 05:43 WBC RBC Hgb Hct MCV MCH RDW Plt Count Lymph % (Auto) [place] % (Auto) Eos % (Auto) [place] # Seg Neutrophils % Seg Neuts % (Manual) Lymphocytes % (Manual) Seg Neutrophils # Seg Neutrophils # Man Lymphocytes # (Manual) APTT POC ABG pH ABG pH POC ABG pCO2 POC ABG pO2 ABG pO2 ABG HCO3 ABG Base Excess ABG Hemoglobin VBG pH Oxyhemoglobin Sodium Potassium Chloride Carbon Dioxide BUN Creatinine Glucose POC Glucose 250 H 155 H 251 H Lactic Acid Calcium AST ALT Alkaline Phosphatase CK-MB (CK-2) CK-MB (CK-2) Rel Index Total Protein Albumin TSH Urine WBC (Auto) Salicylates 03/22/17 03/22/17 03/23/17 13:46 21:16 00:23 WBC RBC Hgb Hct MCV MCH RDW Plt Count Lymph % (Auto) [place] % (Auto) Eos % (Auto) [place] # Seg Neutrophils % Seg Neuts % (Manual) Lymphocytes % (Manual) Seg Neutrophils # Seg Neutrophils # Man Lymphocytes # (Manual) APTT POC ABG pH ABG pH POC ABG pCO2 POC ABG pO2 ABG pO2 ABG HCO3 ABG Base Excess ABG Hemoglobin VBG pH Oxyhemoglobin Sodium Potassium Chloride Carbon Dioxide BUN Creatinine Glucose POC Glucose 269 H 197 H 126 H Lactic Acid Calcium AST ALT Alkaline Phosphatase CK-MB (CK-2) CK-MB (CK-2) Rel Index Total Protein Albumin TSH Urine WBC (Auto) Salicylates 03/23/17 03/23/17 03/23/17 05:39 14:06 21:39 WBC RBC Hgb Hct MCV MCH RDW Plt Count Lymph % (Auto) [place] % (Auto) Eos % (Auto) [place] # Seg Neutrophils % Seg Neuts % (Manual) Lymphocytes % (Manual) Seg Neutrophils # Seg Neutrophils # Man Lymphocytes # (Manual) APTT POC ABG pH ABG pH POC ABG pCO2 POC ABG pO2 ABG pO2 ABG HCO3 ABG Base Excess ABG Hemoglobin VBG pH Oxyhemoglobin Sodium Potassium Chloride Carbon Dioxide BUN Creatinine Glucose POC Glucose 234 H 241 H 248 H Lactic Acid Calcium AST ALT Alkaline Phosphatase CK-MB (CK-2) CK-MB (CK-2) Rel Index Total Protein Albumin TSH Urine WBC (Auto) Salicylates 03/24/17 03/24/17 03/25/17 05:06 21:46 05:38 WBC RBC Hgb Hct MCV MCH RDW Plt Count Lymph % (Auto) [place] % (Auto) Eos % (Auto) [place] # Seg Neutrophils % Seg Neuts % (Manual) Lymphocytes % (Manual) Seg Neutrophils # Seg Neutrophils # Man Lymphocytes # (Manual) APTT POC ABG pH ABG pH POC ABG pCO2 POC ABG pO2 ABG pO2 ABG HCO3 ABG Base Excess ABG Hemoglobin VBG pH Oxyhemoglobin Sodium Potassium Chloride Carbon Dioxide BUN Creatinine Glucose POC Glucose 232 H 276 H 242 H Lactic Acid Calcium AST ALT Alkaline Phosphatase CK-MB (CK-2) CK-MB (CK-2) Rel Index Total Protein Albumin TSH Urine WBC (Auto) Salicylates 03/25/17 03/25/17 03/26/17 14:30 23:14 13:53 WBC RBC Hgb Hct MCV MCH RDW Plt Count Lymph % (Auto) [place] % (Auto) Eos % (Auto) [place] # Seg Neutrophils % Seg Neuts % (Manual) Lymphocytes % (Manual) Seg Neutrophils # Seg Neutrophils # Man Lymphocytes # (Manual) APTT POC ABG pH ABG pH POC ABG pCO2 POC ABG pO2 ABG pO2 ABG HCO3 ABG Base Excess ABG Hemoglobin VBG pH Oxyhemoglobin Sodium Potassium Chloride Carbon Dioxide BUN Creatinine Glucose POC Glucose 246 H 208 H 195 H Lactic Acid Calcium AST ALT Alkaline Phosphatase CK-MB (CK-2) CK-MB (CK-2) Rel Index Total Protein Albumin TSH Urine WBC (Auto) Salicylates 03/26/17 03/27/17 03/27/17 21:58 05:18 14:57 WBC RBC Hgb Hct MCV MCH RDW Plt Count Lymph % (Auto) [place] % (Auto) Eos % (Auto) [place] # Seg Neutrophils % Seg Neuts % (Manual) Lymphocytes % (Manual) Seg Neutrophils # Seg Neutrophils # Man Lymphocytes # (Manual) APTT POC ABG pH ABG pH POC ABG pCO2 POC ABG pO2 ABG pO2 ABG HCO3 ABG Base Excess ABG Hemoglobin VBG pH Oxyhemoglobin Sodium Potassium Chloride Carbon Dioxide BUN Creatinine Glucose POC Glucose 241 H 199 H 269 H Lactic Acid Calcium AST ALT Alkaline Phosphatase CK-MB (CK-2) CK-MB (CK-2) Rel Index Total Protein Albumin TSH Urine WBC (Auto) Salicylates 03/27/17 03/28/17 03/28/17 21:33 13:52 21:29 WBC RBC Hgb Hct MCV MCH RDW Plt Count Lymph % (Auto) [place] % (Auto) Eos % (Auto) [place] # Seg Neutrophils % Seg Neuts % (Manual) Lymphocytes % (Manual) Seg Neutrophils # Seg Neutrophils # Man Lymphocytes # (Manual) APTT POC ABG pH ABG pH POC ABG pCO2 POC ABG pO2 ABG pO2 ABG HCO3 ABG Base Excess ABG Hemoglobin VBG pH Oxyhemoglobin Sodium Potassium Chloride Carbon Dioxide BUN Creatinine Glucose POC Glucose 214 H 243 H 286 H Lactic Acid Calcium AST ALT Alkaline Phosphatase CK-MB (CK-2) CK-MB (CK-2) Rel Index Total Protein Albumin TSH Urine WBC (Auto) Salicylates 03/29/17 03/29/17 03/29/17 04:32 04:32 13:58 WBC RBC Hgb 10.6 L Hct 32.9 L MCV 78 L MCH 25 L RDW 17.6 H Plt Count Lymph % (Auto) 38.0 H [place] % (Auto) 9.7 H Eos % (Auto) [place] # Seg Neutrophils % Seg Neuts % (Manual) Lymphocytes % (Manual) Seg Neutrophils # Seg Neutrophils # Man Lymphocytes # (Manual) APTT POC ABG pH ABG pH POC ABG pCO2 POC ABG pO2 ABG pO2 ABG HCO3 ABG Base Excess ABG Hemoglobin VBG pH Oxyhemoglobin Sodium 132 L Potassium Chloride 94.0 L Carbon Dioxide BUN 28 H Creatinine 0.5 L Glucose 236 H POC Glucose 171 H Lactic Acid Calcium AST ALT 71 H Alkaline Phosphatase 391 H CK-MB (CK-2) CK-MB (CK-2) Rel Index Total Protein 8.3 H Albumin 2.9 L TSH Urine WBC (Auto) Salicylates 03/29/17 03/30/17 03/30/17 20:59 06:07 11:52 WBC RBC Hgb Hct MCV MCH RDW Plt Count Lymph % (Auto) [place] % (Auto) Eos % (Auto) [place] # Seg Neutrophils % Seg Neuts % (Manual) Lymphocytes % (Manual) Seg Neutrophils # Seg Neutrophils # Man Lymphocytes # (Manual) APTT POC ABG pH ABG pH POC ABG pCO2 POC ABG pO2 ABG pO2 ABG HCO3 ABG Base Excess ABG Hemoglobin VBG pH Oxyhemoglobin Sodium Potassium Chloride Carbon Dioxide BUN Creatinine Glucose POC Glucose 215 H 259 H 197 H Lactic Acid Calcium AST ALT Alkaline Phosphatase CK-MB (CK-2) CK-MB (CK-2) Rel Index Total Protein Albumin TSH Urine WBC (Auto) Salicylates 03/30/17 03/31/17 03/31/17 21:34 05:42 14:34 WBC RBC Hgb Hct MCV MCH RDW Plt Count Lymph % (Auto) [place] % (Auto) Eos % (Auto) [place] # Seg Neutrophils % Seg Neuts % (Manual) Lymphocytes % (Manual) Seg Neutrophils # Seg Neutrophils # Man Lymphocytes # (Manual) APTT POC ABG pH ABG pH POC ABG pCO2 POC ABG pO2 ABG pO2 ABG HCO3 ABG Base Excess ABG Hemoglobin VBG pH Oxyhemoglobin Sodium Potassium Chloride Carbon Dioxide BUN Creatinine Glucose POC Glucose 207 H 184 H 213 H Lactic Acid Calcium AST ALT Alkaline Phosphatase CK-MB (CK-2) CK-MB (CK-2) Rel Index Total Protein Albumin TSH Urine WBC (Auto) Salicylates 03/31/17 04/01/17 04/01/17 21:32 05:53 13:48 WBC RBC Hgb Hct MCV MCH RDW Plt Count Lymph % (Auto) [place] % (Auto) Eos % (Auto) [place] # Seg Neutrophils % Seg Neuts % (Manual) Lymphocytes % (Manual) Seg Neutrophils # Seg Neutrophils # Man Lymphocytes # (Manual) APTT POC ABG pH ABG pH POC ABG pCO2 POC ABG pO2 ABG pO2 ABG HCO3 ABG Base Excess ABG Hemoglobin VBG pH Oxyhemoglobin Sodium Potassium Chloride Carbon Dioxide BUN Creatinine Glucose POC Glucose 249 H 225 H 256 H Lactic Acid Calcium AST ALT Alkaline Phosphatase CK-MB (CK-2) CK-MB (CK-2) Rel Index Total Protein Albumin TSH Urine WBC (Auto) Salicylates 04/01/17 04/02/17 04/02/17 21:34 05:32 14:05 WBC RBC Hgb Hct MCV MCH RDW Plt Count Lymph % (Auto) [place] % (Auto) Eos % (Auto) [place] # Seg Neutrophils % Seg Neuts % (Manual) Lymphocytes % (Manual) Seg Neutrophils # Seg Neutrophils # Man Lymphocytes # (Manual) APTT POC ABG pH ABG pH POC ABG pCO2 POC ABG pO2 ABG pO2 ABG HCO3 ABG Base Excess ABG Hemoglobin VBG pH Oxyhemoglobin Sodium Potassium Chloride Carbon Dioxide BUN Creatinine Glucose POC Glucose 292 H 220 H 187 H Lactic Acid Calcium AST ALT Alkaline Phosphatase CK-MB (CK-2) CK-MB (CK-2) Rel Index Total Protein Albumin TSH Urine WBC (Auto) Salicylates 04/02/17 04/03/17 04/03/17 21:57 04:49 14:12 WBC RBC Hgb Hct MCV MCH RDW Plt Count Lymph % (Auto) [place] % (Auto) Eos % (Auto) [place] # Seg Neutrophils % Seg Neuts % (Manual) Lymphocytes % (Manual) Seg Neutrophils # Seg Neutrophils # Man Lymphocytes # (Manual) APTT POC ABG pH ABG pH POC ABG pCO2 POC ABG pO2 ABG pO2 ABG HCO3 ABG Base Excess ABG Hemoglobin VBG pH Oxyhemoglobin Sodium Potassium Chloride Carbon Dioxide BUN Creatinine Glucose POC Glucose 285 H 256 H 197 H Lactic Acid Calcium AST ALT Alkaline Phosphatase CK-MB (CK-2) CK-MB (CK-2) Rel Index Total Protein Albumin TSH Urine WBC (Auto) Salicylates 04/03/17 04/04/17 04/04/17 21:11 05:20 13:18 WBC RBC Hgb Hct MCV MCH RDW Plt Count Lymph % (Auto) [place] % (Auto) Eos % (Auto) [place] # Seg Neutrophils % Seg Neuts % (Manual) Lymphocytes % (Manual) Seg Neutrophils # Seg Neutrophils # Man Lymphocytes # (Manual) APTT POC ABG pH ABG pH POC ABG pCO2 POC ABG pO2 ABG pO2 ABG HCO3 ABG Base Excess ABG Hemoglobin VBG pH Oxyhemoglobin Sodium Potassium Chloride Carbon Dioxide BUN Creatinine Glucose POC Glucose 166 H 228 H 252 H Lactic Acid Calcium AST ALT Alkaline Phosphatase CK-MB (CK-2) CK-MB (CK-2) Rel Index Total Protein Albumin TSH Urine WBC (Auto) Salicylates 04/04/17 04/05/17 04/05/17 21:51 06:14 09:54 WBC RBC Hgb Hct MCV MCH RDW Plt Count Lymph % (Auto) [place] % (Auto) Eos % (Auto) [place] # Seg Neutrophils % Seg Neuts % (Manual) Lymphocytes % (Manual) Seg Neutrophils # Seg Neutrophils # Man Lymphocytes # (Manual) APTT POC ABG pH ABG pH POC ABG pCO2 POC ABG pO2 ABG pO2 ABG HCO3 ABG Base Excess ABG Hemoglobin VBG pH Oxyhemoglobin Sodium Potassium Chloride Carbon Dioxide BUN Creatinine Glucose POC Glucose 252 H 152 H 181 H Lactic Acid Calcium AST ALT Alkaline Phosphatase CK-MB (CK-2) CK-MB (CK-2) Rel Index Total Protein Albumin TSH Urine WBC (Auto) Salicylates 04/05/17 04/05/17 04/05/17 14:49 17:34 21:38 WBC RBC Hgb Hct MCV MCH RDW Plt Count Lymph % (Auto) [place] % (Auto) Eos % (Auto) [place] # Seg Neutrophils % Seg Neuts % (Manual) Lymphocytes % (Manual) Seg Neutrophils # Seg Neutrophils # Man Lymphocytes # (Manual) APTT POC ABG pH ABG pH POC ABG pCO2 POC ABG pO2 ABG pO2 ABG HCO3 ABG Base Excess ABG Hemoglobin VBG pH Oxyhemoglobin Sodium Potassium Chloride Carbon Dioxide BUN Creatinine Glucose POC Glucose 219 H 268 H 278 H Lactic Acid Calcium AST ALT Alkaline Phosphatase CK-MB (CK-2) CK-MB (CK-2) Rel Index Total Protein Albumin TSH Urine WBC (Auto) Salicylates 04/06/17 04/06/17 04/07/17 15:04 22:14 05:09 WBC RBC Hgb Hct MCV MCH RDW Plt Count Lymph % (Auto) [place] % (Auto) Eos % (Auto) [place] # Seg Neutrophils % Seg Neuts % (Manual) Lymphocytes % (Manual) Seg Neutrophils # Seg Neutrophils # Man Lymphocytes # (Manual) APTT POC ABG pH ABG pH POC ABG pCO2 POC ABG pO2 ABG pO2 ABG HCO3 ABG Base Excess ABG Hemoglobin VBG pH Oxyhemoglobin Sodium Potassium Chloride Carbon Dioxide BUN Creatinine Glucose POC Glucose 285 H 106 H 334 H Lactic Acid Calcium AST ALT Alkaline Phosphatase CK-MB (CK-2) CK-MB (CK-2) Rel Index Total Protein Albumin TSH Urine WBC (Auto) Salicylates 04/07/17 04/07/17 04/08/17 14:45 21:48 05:28 WBC RBC Hgb Hct MCV MCH RDW Plt Count Lymph % (Auto) [place] % (Auto) Eos % (Auto) [place] # Seg Neutrophils % Seg Neuts % (Manual) Lymphocytes % (Manual) Seg Neutrophils # Seg Neutrophils # Man Lymphocytes # (Manual) APTT POC ABG pH ABG pH POC ABG pCO2 POC ABG pO2 ABG pO2 ABG HCO3 ABG Base Excess ABG Hemoglobin VBG pH Oxyhemoglobin Sodium Potassium Chloride Carbon Dioxide BUN Creatinine Glucose POC Glucose 173 H 304 H 314 H Lactic Acid Calcium AST ALT Alkaline Phosphatase CK-MB (CK-2) CK-MB (CK-2) Rel Index Total Protein Albumin TSH Urine WBC (Auto) Salicylates 04/08/17 04/08/17 04/08/17 15:57 16:17 22:21 WBC RBC Hgb Hct MCV MCH RDW Plt Count Lymph % (Auto) [place] % (Auto) Eos % (Auto) [place] # Seg Neutrophils % Seg Neuts % (Manual) Lymphocytes % (Manual) Seg Neutrophils # Seg Neutrophils # Man Lymphocytes # (Manual) APTT POC ABG pH ABG pH POC ABG pCO2 POC ABG pO2 ABG pO2 ABG HCO3 ABG Base Excess ABG Hemoglobin VBG pH Oxyhemoglobin Sodium Potassium Chloride Carbon Dioxide BUN Creatinine Glucose POC Glucose 356 H 337 H 323 H Lactic Acid Calcium AST ALT Alkaline Phosphatase CK-MB (CK-2) CK-MB (CK-2) Rel Index Total Protein Albumin TSH Urine WBC (Auto) Salicylates 04/09/17 04/09/17 04/09/17 06:19 15:30 21:52 WBC RBC Hgb Hct MCV MCH RDW Plt Count Lymph % (Auto) [place] % (Auto) Eos % (Auto) [place] # Seg Neutrophils % Seg Neuts % (Manual) Lymphocytes % (Manual) Seg Neutrophils # Seg Neutrophils # Man Lymphocytes # (Manual) APTT POC ABG pH ABG pH POC ABG pCO2 POC ABG pO2 ABG pO2 ABG HCO3 ABG Base Excess ABG Hemoglobin VBG pH Oxyhemoglobin Sodium Potassium Chloride Carbon Dioxide BUN Creatinine Glucose POC Glucose 340 H 332 H 341 H Lactic Acid Calcium AST ALT Alkaline Phosphatase CK-MB (CK-2) CK-MB (CK-2) Rel Index Total Protein Albumin TSH Urine WBC (Auto) Salicylates 04/10/17 04/10/17 04/10/17 01:53 05:33 17:40 WBC RBC Hgb Hct MCV MCH RDW Plt Count Lymph % (Auto) [place] % (Auto) Eos % (Auto) [place] # Seg Neutrophils % Seg Neuts % (Manual) Lymphocytes % (Manual) Seg Neutrophils # Seg Neutrophils # Man Lymphocytes # (Manual) APTT POC ABG pH ABG pH POC ABG pCO2 POC ABG pO2 ABG pO2 ABG HCO3 ABG Base Excess ABG Hemoglobin VBG pH Oxyhemoglobin Sodium Potassium Chloride Carbon Dioxide BUN Creatinine Glucose POC Glucose 261 H 277 H 304 H Lactic Acid Calcium AST ALT Alkaline Phosphatase CK-MB (CK-2) CK-MB (CK-2) Rel Index Total Protein Albumin TSH Urine WBC (Auto) Salicylates 04/10/17 04/11/17 04/11/17 21:29 05:28 14:02 WBC RBC Hgb Hct MCV MCH RDW Plt Count Lymph % (Auto) [place] % (Auto) Eos % (Auto) [place] # Seg Neutrophils % Seg Neuts % (Manual) Lymphocytes % (Manual) Seg Neutrophils # Seg Neutrophils # Man Lymphocytes # (Manual) APTT POC ABG pH ABG pH POC ABG pCO2 POC ABG pO2 ABG pO2 ABG HCO3 ABG Base Excess ABG Hemoglobin VBG pH Oxyhemoglobin Sodium Potassium Chloride Carbon Dioxide BUN Creatinine Glucose POC Glucose 361 H 204 H 236 H Lactic Acid Calcium AST ALT Alkaline Phosphatase CK-MB (CK-2) CK-MB (CK-2) Rel Index Total Protein Albumin TSH Urine WBC (Auto) Salicylates 04/11/17 04/12/17 04/12/17 21:43 05:00 11:53 WBC RBC Hgb Hct MCV MCH RDW Plt Count Lymph % (Auto) [place] % (Auto) Eos % (Auto) [place] # Seg Neutrophils % Seg Neuts % (Manual) Lymphocytes % (Manual) Seg Neutrophils # Seg Neutrophils # Man Lymphocytes # (Manual) APTT POC ABG pH ABG pH POC ABG pCO2 POC ABG pO2 ABG pO2 ABG HCO3 ABG Base Excess ABG Hemoglobin VBG pH Oxyhemoglobin Sodium Potassium Chloride Carbon Dioxide BUN Creatinine Glucose POC Glucose 287 H 294 H 265 H Lactic Acid Calcium AST ALT Alkaline Phosphatase CK-MB (CK-2) CK-MB (CK-2) Rel Index Total Protein Albumin TSH Urine WBC (Auto) Salicylates 04/12/17 04/12/17 04/13/17 21:21 23:44 06:05 WBC RBC Hgb Hct MCV MCH RDW Plt Count Lymph % (Auto) [place] % (Auto) Eos % (Auto) [place] # Seg Neutrophils % Seg Neuts % (Manual) Lymphocytes % (Manual) Seg Neutrophils # Seg Neutrophils # Man Lymphocytes # (Manual) APTT POC ABG pH ABG pH POC ABG pCO2 POC ABG pO2 ABG pO2 ABG HCO3 ABG Base Excess ABG Hemoglobin VBG pH Oxyhemoglobin Sodium Potassium Chloride Carbon Dioxide BUN Creatinine Glucose POC Glucose 289 H 348 H 326 H Lactic Acid Calcium AST ALT Alkaline Phosphatase CK-MB (CK-2) CK-MB (CK-2) Rel Index Total Protein Albumin TSH Urine WBC (Auto) Salicylates 04/13/17 04/13/17 04/14/17 13:54 21:15 05:49 WBC RBC Hgb Hct MCV MCH RDW Plt Count Lymph % (Auto) [place] % (Auto) Eos % (Auto) [place] # Seg Neutrophils % Seg Neuts % (Manual) Lymphocytes % (Manual) Seg Neutrophils # Seg Neutrophils # Man Lymphocytes # (Manual) APTT POC ABG pH ABG pH POC ABG pCO2 POC ABG pO2 ABG pO2 ABG HCO3 ABG Base Excess ABG Hemoglobin VBG pH Oxyhemoglobin Sodium Potassium Chloride Carbon Dioxide BUN Creatinine Glucose POC Glucose 326 H 263 H 319 H Lactic Acid Calcium AST ALT Alkaline Phosphatase CK-MB (CK-2) CK-MB (CK-2) Rel Index Total Protein Albumin TSH Urine WBC (Auto) Salicylates 04/14/17 04/14/1718 13:26 23:13 14:24 WBC RBC Hgb Hct MCV MCH RDW Plt Count Lymph % (Auto) [place] % (Auto) Eos % (Auto) [place] # Seg Neutrophils % Seg Neuts % (Manual) Lymphocytes % (Manual) Seg Neutrophils # Seg Neutrophils # Man Lymphocytes # (Manual) APTT POC ABG pH ABG pH POC ABG pCO2 POC ABG pO2 ABG pO2 ABG HCO3 ABG Base Excess ABG Hemoglobin VBG pH Oxyhemoglobin Sodium Potassium Chloride Carbon Dioxide BUN Creatinine Glucose POC Glucose 207 H 365 H 308 H Lactic Acid Calcium AST ALT Alkaline Phosphatase CK-MB (CK-2) CK-MB (CK-2) Rel Index Total Protein Albumin TSH Urine WBC (Auto) Salicylates 04/15/17 04/15/17 04/15/17 21:00 22:18 23:12 WBC RBC Hgb Hct MCV MCH RDW Plt Count Lymph % (Auto) [place] % (Auto) Eos % (Auto) [place] # Seg Neutrophils % Seg Neuts % (Manual) Lymphocytes % (Manual) Seg Neutrophils # Seg Neutrophils # Man Lymphocytes # (Manual) APTT POC ABG pH ABG pH POC ABG pCO2 POC ABG pO2 ABG pO2 ABG HCO3 ABG Base Excess ABG Hemoglobin VBG pH Oxyhemoglobin Sodium Potassium Chloride Carbon Dioxide BUN Creatinine Glucose POC Glucose 407 H 287 H 325 H Lactic Acid Calcium AST ALT Alkaline Phosphatase CK-MB (CK-2) CK-MB (CK-2) Rel Index Total Protein Albumin TSH Urine WBC (Auto) Salicylates 04/16/17 04/16/17 04/16/17 05:30 10:07 14:26 WBC RBC Hgb Hct MCV MCH RDW Plt Count Lymph % (Auto) [place] % (Auto) Eos % (Auto) [place] # Seg Neutrophils % Seg Neuts % (Manual) Lymphocytes % (Manual) Seg Neutrophils # Seg Neutrophils # Man Lymphocytes # (Manual) APTT POC ABG pH ABG pH POC ABG pCO2 POC ABG pO2 ABG pO2 ABG HCO3 ABG Base Excess ABG Hemoglobin VBG pH Oxyhemoglobin Sodium Potassium Chloride Carbon Dioxide BUN Creatinine Glucose POC Glucose 304 H 217 H 344 H Lactic Acid Calcium AST ALT Alkaline Phosphatase CK-MB (CK-2) CK-MB (CK-2) Rel Index Total Protein Albumin TSH Urine WBC (Auto) Salicylates 04/16/17 04/17/17 04/17/17 21:25 05:12 14:19 WBC RBC Hgb Hct MCV MCH RDW Plt Count Lymph % (Auto) [place] % (Auto) Eos % (Auto) [place] # Seg Neutrophils % Seg Neuts % (Manual) Lymphocytes % (Manual) Seg Neutrophils # Seg Neutrophils # Man Lymphocytes # (Manual) APTT POC ABG pH ABG pH POC ABG pCO2 POC ABG pO2 ABG pO2 ABG HCO3 ABG Base Excess ABG Hemoglobin VBG pH Oxyhemoglobin Sodium Potassium Chloride Carbon Dioxide BUN Creatinine Glucose POC Glucose 305 H 233 H 324 H Lactic Acid Calcium AST ALT Alkaline Phosphatase CK-MB (CK-2) CK-MB (CK-2) Rel Index Total Protein Albumin TSH Urine WBC (Auto) Salicylates 04/17/17 04/18/17 04/18/17 21:42 06:21 14:08 WBC RBC Hgb Hct MCV MCH RDW Plt Count Lymph % (Auto) [place] % (Auto) Eos % (Auto) [place] # Seg Neutrophils % Seg Neuts % (Manual) Lymphocytes % (Manual) Seg Neutrophils # Seg Neutrophils # Man Lymphocytes # (Manual) APTT POC ABG pH ABG pH POC ABG pCO2 POC ABG pO2 ABG pO2 ABG HCO3 ABG Base Excess ABG Hemoglobin VBG pH Oxyhemoglobin Sodium Potassium Chloride Carbon Dioxide BUN Creatinine Glucose POC Glucose 270 H 308 H 290 H Lactic Acid Calcium AST ALT Alkaline Phosphatase CK-MB (CK-2) CK-MB (CK-2) Rel Index Total Protein Albumin TSH Urine WBC (Auto) Salicylates 04/18/17 04/19/17 04/19/17 21:50 05:20 13:59 WBC RBC Hgb Hct MCV MCH RDW Plt Count Lymph % (Auto) [place] % (Auto) Eos % (Auto) [place] # Seg Neutrophils % Seg Neuts % (Manual) Lymphocytes % (Manual) Seg Neutrophils # Seg Neutrophils # Man Lymphocytes # (Manual) APTT POC ABG pH ABG pH POC ABG pCO2 POC ABG pO2 ABG pO2 ABG HCO3 ABG Base Excess ABG Hemoglobin VBG pH Oxyhemoglobin Sodium Potassium Chloride Carbon Dioxide BUN Creatinine Glucose POC Glucose 167 H 372 H 321 H Lactic Acid Calcium AST ALT Alkaline Phosphatase CK-MB (CK-2) CK-MB (CK-2) Rel Index Total Protein Albumin TSH Urine WBC (Auto) Salicylates 04/19/17 04/20/17 04/20/17 21:16 14:18 21:34 WBC RBC Hgb Hct MCV MCH RDW Plt Count Lymph % (Auto) [place] % (Auto) Eos % (Auto) [place] # Seg Neutrophils % Seg Neuts % (Manual) Lymphocytes % (Manual) Seg Neutrophils # Seg Neutrophils # Man Lymphocytes # (Manual) APTT POC ABG pH ABG pH POC ABG pCO2 POC ABG pO2 ABG pO2 ABG HCO3 ABG Base Excess ABG Hemoglobin VBG pH Oxyhemoglobin Sodium Potassium Chloride Carbon Dioxide BUN Creatinine Glucose POC Glucose 182 H 218 H 121 H Lactic Acid Calcium AST ALT Alkaline Phosphatase CK-MB (CK-2) CK-MB (CK-2) Rel Index Total Protein Albumin TSH Urine WBC (Auto) Salicylates 04/21/17 04/21/17 04/21/17 00:08 05:16 12:41 WBC RBC Hgb Hct MCV MCH RDW Plt Count Lymph % (Auto) [place] % (Auto) Eos % (Auto) [place] # Seg Neutrophils % Seg Neuts % (Manual) Lymphocytes % (Manual) Seg Neutrophils # Seg Neutrophils # Man Lymphocytes # (Manual) APTT POC ABG pH ABG pH POC ABG pCO2 POC ABG pO2 ABG pO2 ABG HCO3 ABG Base Excess ABG Hemoglobin VBG pH Oxyhemoglobin Sodium Potassium Chloride Carbon Dioxide BUN Creatinine Glucose POC Glucose 128 H 120 H 216 H Lactic Acid Calcium AST ALT Alkaline Phosphatase CK-MB (CK-2) CK-MB (CK-2) Rel Index Total Protein Albumin TSH Urine WBC (Auto) Salicylates 04/21/17 04/22/17 04/22/17 23:40 14:12 23:38 WBC RBC Hgb Hct MCV MCH RDW Plt Count Lymph % (Auto) [place] % (Auto) Eos % (Auto) [place] # Seg Neutrophils % Seg Neuts % (Manual) Lymphocytes % (Manual) Seg Neutrophils # Seg Neutrophils # Man Lymphocytes # (Manual) APTT POC ABG pH ABG pH POC ABG pCO2 POC ABG pO2 ABG pO2 ABG HCO3 ABG Base Excess ABG Hemoglobin VBG pH Oxyhemoglobin Sodium Potassium Chloride Carbon Dioxide BUN Creatinine Glucose POC Glucose 157 H 242 H 117 H Lactic Acid Calcium AST ALT Alkaline Phosphatase CK-MB (CK-2) CK-MB (CK-2) Rel Index Total Protein Albumin TSH Urine WBC (Auto) Salicylates 04/23/17 04/23/17 04/24/17 05:18 14:01 03:24 WBC RBC Hgb Hct MCV MCH RDW Plt Count Lymph % (Auto) [place] % (Auto) Eos % (Auto) [place] # Seg Neutrophils % Seg Neuts % (Manual) Lymphocytes % (Manual) Seg Neutrophils # Seg Neutrophils # Man Lymphocytes # (Manual) APTT POC ABG pH ABG pH POC ABG pCO2 POC ABG pO2 ABG pO2 ABG HCO3 ABG Base Excess ABG Hemoglobin VBG pH Oxyhemoglobin Sodium Potassium Chloride Carbon Dioxide BUN Creatinine Glucose POC Glucose 163 H 57 L 177 H Lactic Acid Calcium AST ALT Alkaline Phosphatase CK-MB (CK-2) CK-MB (CK-2) Rel Index Total Protein Albumin TSH Urine WBC (Auto) Salicylates 04/24/17 04/24/17 04/24/17 04:00 04:00 06:33 WBC RBC Hgb 9.9 L Hct 30.0 L MCV 79 L MCH 26 L RDW 17.1 H Plt Count 625 H Lymph % (Auto) [place] % (Auto) 8.4 H Eos % (Auto) [place] # Seg Neutrophils % Seg Neuts % (Manual) Lymphocytes % (Manual) Seg Neutrophils # Seg Neutrophils # Man Lymphocytes # (Manual) APTT POC ABG pH ABG pH POC ABG pCO2 POC ABG pO2 ABG pO2 ABG HCO3 ABG Base Excess ABG Hemoglobin VBG pH Oxyhemoglobin Sodium 136 L Potassium Chloride 94.9 L Carbon Dioxide BUN 40 H Creatinine 0.6 L Glucose 176 H POC Glucose 230 H Lactic Acid Calcium AST 67 H ALT Alkaline Phosphatase 294 H CK-MB (CK-2) CK-MB (CK-2) Rel Index Total Protein 9.0 H Albumin 2.5 L TSH Urine WBC (Auto) Salicylates 04/24/17 04/25/17 04/25/17 13:50 00:22 02:55 WBC RBC 3.54 L Hgb 9.0 L Hct 27.9 L MCV 79 L MCH 26 L RDW 17.5 H Plt Count 574 H Lymph % (Auto) [place] % (Auto) 10.4 H Eos % (Auto) [place] # 1.0 H Seg Neutrophils % Seg Neuts % (Manual) Lymphocytes % (Manual) Seg Neutrophils # Seg Neutrophils # Man Lymphocytes # (Manual) APTT POC ABG pH ABG pH POC ABG pCO2 POC ABG pO2 ABG pO2 ABG HCO3 ABG Base Excess ABG Hemoglobin VBG pH Oxyhemoglobin Sodium Potassium Chloride Carbon Dioxide BUN Creatinine Glucose POC Glucose 116 H < 40 L Lactic Acid Calcium AST ALT Alkaline Phosphatase CK-MB (CK-2) CK-MB (CK-2) Rel Index Total Protein Albumin TSH Urine WBC (Auto) Salicylates 04/25/17 04/25/17 04/25/17 02:55 11:15 18:36 WBC RBC Hgb Hct MCV MCH RDW Plt Count Lymph % (Auto) [place] % (Auto) Eos % (Auto) [place] # Seg Neutrophils % Seg Neuts % (Manual) Lymphocytes % (Manual) Seg Neutrophils # Seg Neutrophils # Man Lymphocytes # (Manual) APTT POC ABG pH ABG pH POC ABG pCO2 POC ABG pO2 ABG pO2 ABG HCO3 ABG Base Excess ABG Hemoglobin VBG pH Oxyhemoglobin Sodium Potassium Chloride 96.2 L Carbon Dioxide BUN 39 H Creatinine 0.7 L Glucose 125 H POC Glucose 227 H 280 H Lactic Acid Calcium AST ALT Alkaline Phosphatase 247 H CK-MB (CK-2) CK-MB (CK-2) Rel Index Total Protein Albumin 2.7 L TSH Urine WBC (Auto) Salicylates 04/25/17 04/26/17 04/26/17 21:49 06:53 07:27 WBC RBC 3.61 L Hgb 9.1 L Hct 28.1 L MCV 78 L MCH 25 L RDW 17.4 H Plt Count 594 H Lymph % (Auto) [place] % (Auto) 9.2 H Eos % (Auto) [place] # 1.0 H Seg Neutrophils % 70.6 H Seg Neuts % (Manual) Lymphocytes % (Manual) Seg Neutrophils # Seg Neutrophils # Man Lymphocytes # (Manual) APTT POC ABG pH ABG pH POC ABG pCO2 POC ABG pO2 ABG pO2 ABG HCO3 ABG Base Excess ABG Hemoglobin VBG pH Oxyhemoglobin Sodium Potassium Chloride Carbon Dioxide BUN Creatinine Glucose POC Glucose 192 H 60 L Lactic Acid Calcium AST ALT Alkaline Phosphatase CK-MB (CK-2) CK-MB (CK-2) Rel Index Total Protein Albumin TSH Urine WBC (Auto) Salicylates 04/26/17 04/26/17 04/26/17 07:27 07:28 13:32 WBC RBC Hgb Hct MCV MCH RDW Plt Count Lymph % (Auto) [place] % (Auto) Eos % (Auto) [place] # Seg Neutrophils % Seg Neuts % (Manual) Lymphocytes % (Manual) Seg Neutrophils # Seg Neutrophils # Man Lymphocytes # (Manual) APTT POC ABG pH ABG pH POC ABG pCO2 POC ABG pO2 ABG pO2 ABG HCO3 ABG Base Excess ABG Hemoglobin VBG pH Oxyhemoglobin Sodium Potassium Chloride 95.0 L Carbon Dioxide BUN 42 H Creatinine 0.7 L Glucose 172 H POC Glucose 190 H 168 H Lactic Acid Calcium AST 56 H ALT Alkaline Phosphatase 274 H CK-MB (CK-2) CK-MB (CK-2) Rel Index Total Protein 8.9 H Albumin 2.7 L TSH Urine WBC (Auto) Salicylates 04/26/17 04/27/17 04/27/17 23:36 05:10 05:10 WBC RBC 3.49 L Hgb 8.7 L Hct 27.0 L MCV 77 L MCH 25 L RDW 17.4 H Plt Count 558 H Lymph % (Auto) [place] % (Auto) 9.6 H Eos % (Auto) [place] # Seg Neutrophils % Seg Neuts % (Manual) Lymphocytes % (Manual) Seg Neutrophils # Seg Neutrophils # Man Lymphocytes # (Manual) APTT POC ABG pH ABG pH POC ABG pCO2 POC ABG pO2 ABG pO2 ABG HCO3 ABG Base Excess ABG Hemoglobin VBG pH Oxyhemoglobin Sodium 133 L Potassium Chloride 93.5 L Carbon Dioxide BUN 40 H Creatinine 0.7 L Glucose 179 H POC Glucose 204 H Lactic Acid Calcium AST 73 H ALT 58 H Alkaline Phosphatase 294 H CK-MB (CK-2) CK-MB (CK-2) Rel Index Total Protein 8.7 H Albumin 2.4 L TSH Urine WBC (Auto) Salicylates 04/27/17 04/27/17 04/27/17 05:45 14:08 23:46 WBC RBC Hgb Hct MCV MCH RDW Plt Count Lymph % (Auto) [place] % (Auto) Eos % (Auto) [place] # Seg Neutrophils % Seg Neuts % (Manual) Lymphocytes % (Manual) Seg Neutrophils # Seg Neutrophils # Man Lymphocytes # (Manual) APTT POC ABG pH ABG pH POC ABG pCO2 POC ABG pO2 ABG pO2 ABG HCO3 ABG Base Excess ABG Hemoglobin VBG pH Oxyhemoglobin Sodium Potassium Chloride Carbon Dioxide BUN Creatinine Glucose POC Glucose 200 H 206 H 207 H Lactic Acid Calcium AST ALT Alkaline Phosphatase CK-MB (CK-2) CK-MB (CK-2) Rel Index Total Protein Albumin TSH Urine WBC (Auto) Salicylates 04/28/17 04/28/17 04/28/17 04:48 04:53 05:10 WBC RBC 3.48 L Hgb 8.8 L Hct 26.7 L MCV 77 L MCH 25 L RDW 17.0 H Plt Count 515 H Lymph % (Auto) [place] % (Auto) 8.4 H Eos % (Auto) [place] # Seg Neutrophils % 70.6 H Seg Neuts % (Manual) Lymphocytes % (Manual) Seg Neutrophils # Seg Neutrophils # Man Lymphocytes # (Manual) APTT POC ABG pH ABG pH POC ABG pCO2 POC ABG pO2 ABG pO2 ABG HCO3 ABG Base Excess ABG Hemoglobin VBG pH Oxyhemoglobin Sodium Potassium Chloride Carbon Dioxide BUN Creatinine Glucose POC Glucose 43 L 41 L Lactic Acid Calcium AST ALT Alkaline Phosphatase CK-MB (CK-2) CK-MB (CK-2) Rel Index Total Protein Albumin TSH Urine WBC (Auto) Salicylates 04/28/17 04/28/17 04/28/17 05:10 14:06 22:07 WBC RBC Hgb Hct MCV MCH RDW Plt Count Lymph % (Auto) [place] % (Auto) Eos % (Auto) [place] # Seg Neutrophils % Seg Neuts % (Manual) Lymphocytes % (Manual) Seg Neutrophils # Seg Neutrophils # Man Lymphocytes # (Manual) APTT POC ABG pH ABG pH POC ABG pCO2 POC ABG pO2 ABG pO2 ABG HCO3 ABG Base Excess ABG Hemoglobin VBG pH Oxyhemoglobin Sodium 136 L Potassium Chloride 95.2 L Carbon Dioxide BUN 42 H Creatinine Glucose 63 L POC Glucose 303 H 227 H Lactic Acid Calcium AST 45 H ALT Alkaline Phosphatase 271 H CK-MB (CK-2) CK-MB (CK-2) Rel Index Total Protein 8.9 H Albumin 2.5 L TSH Urine WBC (Auto) Salicylates 04/29/17 04/29/17 04/29/17 06:40 14:11 21:35 WBC RBC Hgb Hct MCV MCH RDW Plt Count Lymph % (Auto) [place] % (Auto) Eos % (Auto) [place] # Seg Neutrophils % Seg Neuts % (Manual) Lymphocytes % (Manual) Seg Neutrophils # Seg Neutrophils # Man Lymphocytes # (Manual) APTT POC ABG pH ABG pH POC ABG pCO2 POC ABG pO2 ABG pO2 ABG HCO3 ABG Base Excess ABG Hemoglobin VBG pH Oxyhemoglobin Sodium Potassium Chloride Carbon Dioxide BUN Creatinine Glucose POC Glucose 254 H 244 H 184 H Lactic Acid Calcium AST ALT Alkaline Phosphatase CK-MB (CK-2) CK-MB (CK-2) Rel Index Total Protein Albumin TSH Urine WBC (Auto) Salicylates 04/30/17 04/30/17 04/30/17 05:17 14:03 22:08 WBC RBC Hgb Hct MCV MCH RDW Plt Count Lymph % (Auto) [place] % (Auto) Eos % (Auto) [place] # Seg Neutrophils % Seg Neuts % (Manual) Lymphocytes % (Manual) Seg Neutrophils # Seg Neutrophils # Man Lymphocytes # (Manual) APTT POC ABG pH ABG pH POC ABG pCO2 POC ABG pO2 ABG pO2 ABG HCO3 ABG Base Excess ABG Hemoglobin VBG pH Oxyhemoglobin Sodium Potassium Chloride Carbon Dioxide BUN Creatinine Glucose POC Glucose 173 H 182 H 247 H Lactic Acid Calcium AST ALT Alkaline Phosphatase CK-MB (CK-2) CK-MB (CK-2) Rel Index Total Protein Albumin TSH Urine WBC (Auto) Salicylates 05/01/17 05/01/17 05/01/17 05:04 15:37 18:50 WBC RBC Hgb Hct MCV MCH RDW Plt Count Lymph % (Auto) [place] % (Auto) Eos % (Auto) [place] # Seg Neutrophils % Seg Neuts % (Manual) Lymphocytes % (Manual) Seg Neutrophils # Seg Neutrophils # Man Lymphocytes # (Manual) APTT POC ABG pH ABG pH POC ABG pCO2 POC ABG pO2 ABG pO2 ABG HCO3 ABG Base Excess ABG Hemoglobin VBG pH Oxyhemoglobin Sodium Potassium Chloride Carbon Dioxide BUN Creatinine Glucose POC Glucose 335 H 68 L 144 H Lactic Acid Calcium AST ALT Alkaline Phosphatase CK-MB (CK-2) CK-MB (CK-2) Rel Index Total Protein Albumin TSH Urine WBC (Auto) Salicylates 05/01/17 05/02/17 05/02/17 22:13 04:59 14:06 WBC RBC Hgb Hct MCV MCH RDW Plt Count Lymph % (Auto) [place] % (Auto) Eos % (Auto) [place] # Seg Neutrophils % Seg Neuts % (Manual) Lymphocytes % (Manual) Seg Neutrophils # Seg Neutrophils # Man Lymphocytes # (Manual) APTT POC ABG pH ABG pH POC ABG pCO2 POC ABG pO2 ABG pO2 ABG HCO3 ABG Base Excess ABG Hemoglobin VBG pH Oxyhemoglobin Sodium Potassium Chloride Carbon Dioxide BUN Creatinine Glucose POC Glucose 192 H 225 H 165 H Lactic Acid Calcium AST ALT Alkaline Phosphatase CK-MB (CK-2) CK-MB (CK-2) Rel Index Total Protein Albumin TSH Urine WBC (Auto) Salicylates 05/02/17 05/03/17 05/03/17 21:20 05:16 16:56 WBC RBC Hgb Hct MCV MCH RDW Plt Count Lymph % (Auto) [place] % (Auto) Eos % (Auto) [place] # Seg Neutrophils % Seg Neuts % (Manual) Lymphocytes % (Manual) Seg Neutrophils # Seg Neutrophils # Man Lymphocytes # (Manual) APTT POC ABG pH ABG pH POC ABG pCO2 POC ABG pO2 ABG pO2 ABG HCO3 ABG Base Excess ABG Hemoglobin VBG pH Oxyhemoglobin Sodium Potassium Chloride Carbon Dioxide BUN Creatinine Glucose POC Glucose 181 H 323 H 125 H Lactic Acid Calcium AST ALT Alkaline Phosphatase CK-MB (CK-2) CK-MB (CK-2) Rel Index Total Protein Albumin TSH Urine WBC (Auto) Salicylates 05/03/17 05/04/17 05/04/17 21:46 05:01 14:24 WBC RBC Hgb Hct MCV MCH RDW Plt Count Lymph % (Auto) [place] % (Auto) Eos % (Auto) [place] # Seg Neutrophils % Seg Neuts % (Manual) Lymphocytes % (Manual) Seg Neutrophils # Seg Neutrophils # Man Lymphocytes # (Manual) APTT POC ABG pH ABG pH POC ABG pCO2 POC ABG pO2 ABG pO2 ABG HCO3 ABG Base Excess ABG Hemoglobin VBG pH Oxyhemoglobin Sodium Potassium Chloride Carbon Dioxide BUN Creatinine Glucose POC Glucose 210 H 360 H 219 H Lactic Acid Calcium AST ALT Alkaline Phosphatase CK-MB (CK-2) CK-MB (CK-2) Rel Index Total Protein Albumin TSH Urine WBC (Auto) Salicylates 05/04/17 05/05/17 05/05/17 21:39 01:58 05:13 WBC RBC Hgb Hct MCV MCH RDW Plt Count Lymph % (Auto) [place] % (Auto) Eos % (Auto) [place] # Seg Neutrophils % Seg Neuts % (Manual) Lymphocytes % (Manual) Seg Neutrophils # Seg Neutrophils # Man Lymphocytes # (Manual) APTT POC ABG pH ABG pH POC ABG pCO2 POC ABG pO2 ABG pO2 ABG HCO3 ABG Base Excess ABG Hemoglobin VBG pH Oxyhemoglobin Sodium Potassium Chloride Carbon Dioxide BUN Creatinine Glucose POC Glucose 126 H 175 H 267 H Lactic Acid Calcium AST ALT Alkaline Phosphatase CK-MB (CK-2) CK-MB (CK-2) Rel Index Total Protein Albumin TSH Urine WBC (Auto) Salicylates 05/05/17 05/05/17 05/05/17 12:19 14:11 21:18 WBC RBC Hgb Hct MCV MCH RDW Plt Count Lymph % (Auto) [place] % (Auto) Eos % (Auto) [place] # Seg Neutrophils % Seg Neuts % (Manual) Lymphocytes % (Manual) Seg Neutrophils # Seg Neutrophils # Man Lymphocytes # (Manual) APTT POC ABG pH ABG pH POC ABG pCO2 POC ABG pO2 ABG pO2 ABG HCO3 ABG Base Excess ABG Hemoglobin VBG pH Oxyhemoglobin Sodium Potassium Chloride Carbon Dioxide BUN Creatinine Glucose POC Glucose 221 H 205 H 156 H Lactic Acid Calcium AST ALT Alkaline Phosphatase CK-MB (CK-2) CK-MB (CK-2) Rel Index Total Protein Albumin TSH Urine WBC (Auto) Salicylates 05/06/17 05/06/17 05/06/17 06:02 15:26 21:43 WBC RBC Hgb Hct MCV MCH RDW Plt Count Lymph % (Auto) [place] % (Auto) Eos % (Auto) [place] # Seg Neutrophils % Seg Neuts % (Manual) Lymphocytes % (Manual) Seg Neutrophils # Seg Neutrophils # Man Lymphocytes # (Manual) APTT POC ABG pH ABG pH POC ABG pCO2 POC ABG pO2 ABG pO2 ABG HCO3 ABG Base Excess ABG Hemoglobin VBG pH Oxyhemoglobin Sodium Potassium Chloride Carbon Dioxide BUN Creatinine Glucose POC Glucose 263 H 143 H 145 H Lactic Acid Calcium AST ALT Alkaline Phosphatase CK-MB (CK-2) CK-MB (CK-2) Rel Index Total Protein Albumin TSH Urine WBC (Auto) Salicylates 05/07/17 05/07/17 05/07/17 05:52 21:46 21:49 WBC RBC Hgb Hct MCV MCH RDW Plt Count Lymph % (Auto) [place] % (Auto) Eos % (Auto) [place] # Seg Neutrophils % Seg Neuts % (Manual) Lymphocytes % (Manual) Seg Neutrophils # Seg Neutrophils # Man Lymphocytes # (Manual) APTT POC ABG pH ABG pH POC ABG pCO2 POC ABG pO2 ABG pO2 ABG HCO3 ABG Base Excess ABG Hemoglobin VBG pH Oxyhemoglobin Sodium Potassium Chloride Carbon Dioxide BUN Creatinine Glucose POC Glucose 242 H < 40 L < 40 L Lactic Acid Calcium AST ALT Alkaline Phosphatase CK-MB (CK-2) CK-MB (CK-2) Rel Index Total Protein Albumin TSH Urine WBC (Auto) Salicylates 05/07/17 05/08/17 05/09/17 22:41 06:14 00:02 WBC RBC Hgb Hct MCV MCH RDW Plt Count Lymph % (Auto) [place] % (Auto) Eos % (Auto) [place] # Seg Neutrophils % Seg Neuts % (Manual) Lymphocytes % (Manual) Seg Neutrophils # Seg Neutrophils # Man Lymphocytes # (Manual) APTT POC ABG pH ABG pH POC ABG pCO2 POC ABG pO2 ABG pO2 ABG HCO3 ABG Base Excess ABG Hemoglobin VBG pH Oxyhemoglobin Sodium Potassium Chloride Carbon Dioxide BUN Creatinine Glucose POC Glucose 183 H 329 H 130 H Lactic Acid Calcium AST ALT Alkaline Phosphatase CK-MB (CK-2) CK-MB (CK-2) Rel Index Total Protein Albumin TSH Urine WBC (Auto) Salicylates 05/09/17 05/09/17 05/09/17 06:08 14:06 21:44 WBC RBC Hgb Hct MCV MCH RDW Plt Count Lymph % (Auto) [place] % (Auto) Eos % (Auto) [place] # Seg Neutrophils % Seg Neuts % (Manual) Lymphocytes % (Manual) Seg Neutrophils # Seg Neutrophils # Man Lymphocytes # (Manual) APTT POC ABG pH ABG pH POC ABG pCO2 POC ABG pO2 ABG pO2 ABG HCO3 ABG Base Excess ABG Hemoglobin VBG pH Oxyhemoglobin Sodium Potassium Chloride Carbon Dioxide BUN Creatinine Glucose POC Glucose 241 H 251 H 198 H Lactic Acid Calcium AST ALT Alkaline Phosphatase CK-MB (CK-2) CK-MB (CK-2) Rel Index Total Protein Albumin TSH Urine WBC (Auto) Salicylates 05/10/17 05/10/17 05/10/17 05:18 14:44 21:53 WBC RBC Hgb Hct MCV MCH RDW Plt Count Lymph % (Auto) [place] % (Auto) Eos % (Auto) [place] # Seg Neutrophils % Seg Neuts % (Manual) Lymphocytes % (Manual) Seg Neutrophils # Seg Neutrophils # Man Lymphocytes # (Manual) APTT POC ABG pH ABG pH POC ABG pCO2 POC ABG pO2 ABG pO2 ABG HCO3 ABG Base Excess ABG Hemoglobin VBG pH Oxyhemoglobin Sodium Potassium Chloride Carbon Dioxide BUN Creatinine Glucose POC Glucose 166 H 224 H 171 H Lactic Acid Calcium AST ALT Alkaline Phosphatase CK-MB (CK-2) CK-MB (CK-2) Rel Index Total Protein Albumin TSH Urine WBC (Auto) Salicylates 05/11/17 05/11/17 05/11/17 05:45 13:44 21:42 WBC RBC Hgb Hct MCV MCH RDW Plt Count Lymph % (Auto) [place] % (Auto) Eos % (Auto) [place] # Seg Neutrophils % Seg Neuts % (Manual) Lymphocytes % (Manual) Seg Neutrophils # Seg Neutrophils # Man Lymphocytes # (Manual) APTT POC ABG pH ABG pH POC ABG pCO2 POC ABG pO2 ABG pO2 ABG HCO3 ABG Base Excess ABG Hemoglobin VBG pH Oxyhemoglobin Sodium Potassium Chloride Carbon Dioxide BUN Creatinine Glucose POC Glucose 199 H 150 H 163 H Lactic Acid Calcium AST ALT Alkaline Phosphatase CK-MB (CK-2) CK-MB (CK-2) Rel Index Total Protein Albumin TSH Urine WBC (Auto) Salicylates 05/12/17 05/12/17 05/12/17 06:03 13:59 21:22 WBC RBC Hgb Hct MCV MCH RDW Plt Count Lymph % (Auto) [place] % (Auto) Eos % (Auto) [place] # Seg Neutrophils % Seg Neuts % (Manual) Lymphocytes % (Manual) Seg Neutrophils # Seg Neutrophils # Man Lymphocytes # (Manual) APTT POC ABG pH ABG pH POC ABG pCO2 POC ABG pO2 ABG pO2 ABG HCO3 ABG Base Excess ABG Hemoglobin VBG pH Oxyhemoglobin Sodium Potassium Chloride Carbon Dioxide BUN Creatinine Glucose POC Glucose 147 H 243 H 116 H Lactic Acid Calcium AST ALT Alkaline Phosphatase CK-MB (CK-2) CK-MB (CK-2) Rel Index Total Protein Albumin TSH Urine WBC (Auto) Salicylates 05/13/17 05/13/17 05/13/17 05:28 13:49 21:29 WBC RBC Hgb Hct MCV MCH RDW Plt Count Lymph % (Auto) [place] % (Auto) Eos % (Auto) [place] # Seg Neutrophils % Seg Neuts % (Manual) Lymphocytes % (Manual) Seg Neutrophils # Seg Neutrophils # Man Lymphocytes # (Manual) APTT POC ABG pH ABG pH POC ABG pCO2 POC ABG pO2 ABG pO2 ABG HCO3 ABG Base Excess ABG Hemoglobin VBG pH Oxyhemoglobin Sodium Potassium Chloride Carbon Dioxide BUN Creatinine Glucose POC Glucose 213 H 224 H 379 H Lactic Acid Calcium AST ALT Alkaline Phosphatase CK-MB (CK-2) CK-MB (CK-2) Rel Index Total Protein Albumin TSH Urine WBC (Auto) Salicylates 05/14/17 05/14/17 05/14/17 05:17 13:35 21:23 WBC RBC Hgb Hct MCV MCH RDW Plt Count Lymph % (Auto) [place] % (Auto) Eos % (Auto) [place] # Seg Neutrophils % Seg Neuts % (Manual) Lymphocytes % (Manual) Seg Neutrophils # Seg Neutrophils # Man Lymphocytes # (Manual) APTT POC ABG pH ABG pH POC ABG pCO2 POC ABG pO2 ABG pO2 ABG HCO3 ABG Base Excess ABG Hemoglobin VBG pH Oxyhemoglobin Sodium Potassium Chloride Carbon Dioxide BUN Creatinine Glucose POC Glucose 234 H 242 H 218 H Lactic Acid Calcium AST ALT Alkaline Phosphatase CK-MB (CK-2) CK-MB (CK-2) Rel Index Total Protein Albumin TSH Urine WBC (Auto) Salicylates 05/15/17 05/15/17 05/16/17 04:58 13:53 01:34 WBC RBC Hgb Hct MCV MCH RDW Plt Count Lymph % (Auto) [place] % (Auto) Eos % (Auto) [place] # Seg Neutrophils % Seg Neuts % (Manual) Lymphocytes % (Manual) Seg Neutrophils # Seg Neutrophils # Man Lymphocytes # (Manual) APTT POC ABG pH ABG pH POC ABG pCO2 POC ABG pO2 ABG pO2 ABG HCO3 ABG Base Excess ABG Hemoglobin VBG pH Oxyhemoglobin Sodium Potassium Chloride Carbon Dioxide BUN Creatinine Glucose POC Glucose 310 H 193 H 263 H Lactic Acid Calcium AST ALT Alkaline Phosphatase CK-MB (CK-2) CK-MB (CK-2) Rel Index Total Protein Albumin TSH Urine WBC (Auto) Salicylates 05/16/17 05/16/17 05/16/17 06:03 14:36 21:59 WBC RBC Hgb Hct MCV MCH RDW Plt Count Lymph % (Auto) [place] % (Auto) Eos % (Auto) [place] # Seg Neutrophils % Seg Neuts % (Manual) Lymphocytes % (Manual) Seg Neutrophils # Seg Neutrophils # Man Lymphocytes # (Manual) APTT POC ABG pH ABG pH POC ABG pCO2 POC ABG pO2 ABG pO2 ABG HCO3 ABG Base Excess ABG Hemoglobin VBG pH Oxyhemoglobin Sodium Potassium Chloride Carbon Dioxide BUN Creatinine Glucose POC Glucose 330 H 272 H 198 H Lactic Acid Calcium AST ALT Alkaline Phosphatase CK-MB (CK-2) CK-MB (CK-2) Rel Index Total Protein Albumin TSH Urine WBC (Auto) Salicylates 05/17/17 05/17/17 05/18/17 05:48 13:59 05:27 WBC RBC Hgb Hct MCV MCH RDW Plt Count Lymph % (Auto) [place] % (Auto) Eos % (Auto) [place] # Seg Neutrophils % Seg Neuts % (Manual) Lymphocytes % (Manual) Seg Neutrophils # Seg Neutrophils # Man Lymphocytes # (Manual) APTT POC ABG pH ABG pH POC ABG pCO2 POC ABG pO2 ABG pO2 ABG HCO3 ABG Base Excess ABG Hemoglobin VBG pH Oxyhemoglobin Sodium Potassium Chloride Carbon Dioxide BUN Creatinine Glucose POC Glucose 204 H 229 H 152 H Lactic Acid Calcium AST ALT Alkaline Phosphatase CK-MB (CK-2) CK-MB (CK-2) Rel Index Total Protein Albumin TSH Urine WBC (Auto) Salicylates 05/18/17 05/18/17 05/19/17 14:16 21:27 04:59 WBC RBC Hgb Hct MCV MCH RDW Plt Count Lymph % (Auto) [place] % (Auto) Eos % (Auto) [place] # Seg Neutrophils % Seg Neuts % (Manual) Lymphocytes % (Manual) Seg Neutrophils # Seg Neutrophils # Man Lymphocytes # (Manual) APTT POC ABG pH ABG pH POC ABG pCO2 POC ABG pO2 ABG pO2 ABG HCO3 ABG Base Excess ABG Hemoglobin VBG pH Oxyhemoglobin Sodium Potassium Chloride Carbon Dioxide BUN Creatinine Glucose POC Glucose 217 H 202 H 131 H Lactic Acid Calcium AST ALT Alkaline Phosphatase CK-MB (CK-2) CK-MB (CK-2) Rel Index Total Protein Albumin TSH Urine WBC (Auto) Salicylates 05/19/17 05/20/17 05/20/17 14:57 00:11 05:45 WBC RBC Hgb Hct MCV MCH RDW Plt Count Lymph % (Auto) [place] % (Auto) Eos % (Auto) [place] # Seg Neutrophils % Seg Neuts % (Manual) Lymphocytes % (Manual) Seg Neutrophils # Seg Neutrophils # Man Lymphocytes # (Manual) APTT POC ABG pH ABG pH POC ABG pCO2 POC ABG pO2 ABG pO2 ABG HCO3 ABG Base Excess ABG Hemoglobin VBG pH Oxyhemoglobin Sodium Potassium Chloride Carbon Dioxide BUN Creatinine Glucose POC Glucose 216 H 197 H 195 H Lactic Acid Calcium AST ALT Alkaline Phosphatase CK-MB (CK-2) CK-MB (CK-2) Rel Index Total Protein Albumin TSH Urine WBC (Auto) Salicylates 05/20/17 05/20/17 05/21/17 13:29 22:11 05:43 WBC RBC Hgb Hct MCV MCH RDW Plt Count Lymph % (Auto) [place] % (Auto) Eos % (Auto) [place] # Seg Neutrophils % Seg Neuts % (Manual) Lymphocytes % (Manual) Seg Neutrophils # Seg Neutrophils # Man Lymphocytes # (Manual) APTT POC ABG pH ABG pH POC ABG pCO2 POC ABG pO2 ABG pO2 ABG HCO3 ABG Base Excess ABG Hemoglobin VBG pH Oxyhemoglobin Sodium Potassium Chloride Carbon Dioxide BUN Creatinine Glucose POC Glucose 138 H 242 H 228 H Lactic Acid Calcium AST ALT Alkaline Phosphatase CK-MB (CK-2) CK-MB (CK-2) Rel Index Total Protein Albumin TSH Urine WBC (Auto) Salicylates
[2017-05-21] MEDS: PEPCID PO SCH ×2 (11:52→22:03)
[2017-05-21] MEDS: HEPARIN SUB-Q SCH ×2 (11:53→22:04)
--- NOTE | 2017-05-21 17:12 | Progress Note ---
Assessment and Plan Hypoglycemic brain injury Persistent vegetative state Metabolic encephalopathy Hypoglycemia/hypothermia, resolved Acute respiratory failure on mechanical ventilator dependent UTI with klebsiella, treated ( Cx + on 01/28), then with ESBL likely colonization hyponatremia, stable Hypothyroidism IDDM Hypertension low grade Fever, intermittently spikes temp - Cont supportive care and current medication. Monitor vitals, repeat cx on - no growth - increased dose of long acting insulin to 15 unit - Patient is DNR- needs guardianship from the state to give consent for further management, as has no family to give consent. - Documents signed for [facility] proxy update, hospice care evaluation Brief History: 51 YO Male with CKD,HTN, DM presents to ED after found down and unresponsive by his neighbor, who subsequently called EMS. Upon arrival, patient found unresponsive on the floor with a serum glucose of 21, patient has a known history of alcohol abuse and delirium tremens. The patient was administered D5 approximate 500 mls during transport without change in mental status/level of consciousness. Pt seen and evaluated in ED was was found to be unable to protect his airway. Pt was intubated and placed on vent support. Pt found to have evidence of hypothyroidism. He was started on Synthroid. He has since been in the ICU. respiratory services manager try to locate family, even spoke to the friends who he lives with. They themselves were unaware of any family members. After ethics committee meeting on the patient, the decision was made to make him DO NOT RESUSCITATE and to transfer him to hospice. Given his very poor prognosis and poor likelihood of recovery. It was decided that was not his best interest to get trach and PEG. Therefore he'll be transferred to the hospice intubated. Now Awaiting on court order /state guardianship. Hospitalist Physical - Physical exam Narrative exam: General: open eyes HEENT: Moist mucous membranes, , no lymphadenopathy Neck: supple Cardiac: S1-S2 heard Lungs: mechnical ventilated breath sounds Abdomen: soft , nontender, nondistended, bowel sounds positive Extremities: no edema clubbing or cyanosis Skin: no rash or lesions Neurologic: opens eyes, withdraws from painful stimuli, does not follow commend Subjective Date of service: 05/21/17 Principal diagnosis: Acute respiratory failure,encephalopathy Interval history: afebrile o/n, BG stable Objective - Constitutional Vitals: Vital Signs - 12hr 05/21/17 05/21/17 05/21/17 06:01 08:00 08:52 Temperature 97.7 F Pulse Rate 70 73 72 Respiratory 13 12 12 Rate Respiratory Rate [ Generalized] Blood Pressure 119/74 125/74 125/74 O2 Sat by Pulse 100 100 99 Oximetry 05/21/17 05/21/17 05/21/17 10:00 10:01 12:00 Temperature 98.6 F Pulse Rate 68 71 Respiratory 15 Rate Respiratory 18 Rate [ Generalized] Blood Pressure 125/74 O2 Sat by Pulse 100 Oximetry 05/21/17 05/21/17 13:45 16:00 Temperature 98.3 F Pulse Rate 71 Respiratory Rate Respiratory Rate [ Generalized] Blood Pressure 125/75 O2 Sat by Pulse 100 Oximetry - Labs CBC & Chem 7: 04/28/17 05:10 04/28/17 05:10 Labs: Abnormal lab results 05/20/17 05/21/17 05/21/17 Range/Units 22:11 05:43 14:06 POC Glucose 242 H 228 H 191 H (70-105)
[2017-05-22] MEDS: HumuLIN R SUB-Q SCH ×2 (06:44→21:57)
--- NOTE | 2017-05-22 07:33 | Progress Note ---
Assessment and Plan Acute respiratory failure secondary to metabolic event, prolonged vent support Hypoglycemia/hypothermia - Hypothyroidism; UTI/SIRS.Resolved Metabolic encephalopathy. Residual vegetative state,severe.Again, no significant or mayor improvement or change Rec: Patient now [place] according to record notes. Expected to be transferred to hospice care level from this point on. No meaningful response to medical therapy as stated in previous notes No additional pulmonary recommendations at this time and I agree with transfer to hospice level care Poor prognosis,unchanged status Subjective Date of service: 05/22/17 Principal diagnosis: Acute respiratory failure,encephalopathy Interval history: Eyes open, not focal response to call or commands Objective Vital Signs - 12hr 05/21/17 05/21/17 05/21/17 19:43 20:00 22:00 Temperature 98.9 F Pulse Rate 72 70 Pulse Rate [ 66 From Monitor] Pulse Rate [ 66 Left] Respiratory 12 15 Rate Blood Pressure 131/68 131/68 O2 Sat by Pulse 100 100 Oximetry 05/22/17 05/22/17 05/22/17 00:00 01:38 02:00 Temperature 98.8 F Pulse Rate 63 67 65 Pulse Rate [ From Monitor] Pulse Rate [ Left] Respiratory 12 12 Rate Blood Pressure 106/67 106/67 106/67 O2 Sat by Pulse 100 100 100 Oximetry 05/22/17 05/22/17 05/22/17 04:00 04:36 06:00 Temperature 98.0 F Pulse Rate 66 64 66 Pulse Rate [ From Monitor] Pulse Rate [ Left] Respiratory 12 12 Rate Blood Pressure 106/67 106/67 106/67 O2 Sat by Pulse 100 100 100 Oximetry Constitutional: no acute distress, other (on vent) Eyes: non-icteric ENT: oropharynx moist, other (ETT in position) Neck: supple Effort: normal Ascultation: Bilateral: clear, diminished breath sounds Cardiovascular: regular rate and rhythm (no mrg) Gastrointestinal: normoactive bowel sounds, soft, non-tender, non-distended Integumentary: normal Extremities: no cyanosis, no edema, pink and warm Neurologic: pupils equal and round, other (opens eyes spontaneously, but no meaningful responce to stimuli) Psychiatric: other (unable to obtain) CBC and BMP: 04/28/17 05:10 04/28/17 05:10 ABG, PT/INR, D-dimer: ABG POC ABG pH 7.442 (7.35-7.45) 01/31/17 18:55 ABG pH 7.420 pH Units (7.350-7.450) 01/17/17 04:35 POC ABG pCO2 32.8 (35-45) L 01/31/17 18:55 ABG pCO2 34.5 mm Hg 01/17/17 04:35 POC ABG pO2 82 (80-105) 01/31/17 18:55 ABG pO2 160.3 mm Hg (80.0-90.0) H 01/17/17 04:35 POC ABG HCO3 22.4 01/31/17 18:55 POC ABG Total CO2 23 01/31/17 18:55 POC ABG O2 Sat 97 01/31/17 18:55 ABG O2 Saturation 99.0 % (95.0-99.0) 01/17/17 04:35 PT/INR, D-dimer PT 14.1 Sec. (12.2-14.9) 01/17/17 04:10 INR 1.04 (0.87-1.13) 01/17/17 04:10 Abnormal lab findings: Abnormal Labs 01/09/17 01/09/17 01/09/17 10:16 10:16 10:16 WBC RBC Hgb 9.7 L Hct 28.4 L MCV 76 L MCH 26 L RDW 17.2 H Plt Count 448 H Lymph % (Auto) [place] % (Auto) Eos % (Auto) [place] # Seg Neutrophils % 79.5 H Seg Neuts % (Manual) Lymphocytes % (Manual) Seg Neutrophils # Seg Neutrophils # Man Lymphocytes # (Manual) APTT 39.6 H POC ABG pH ABG pH POC ABG pCO2 POC ABG pO2 ABG pO2 ABG HCO3 ABG Base Excess ABG Hemoglobin VBG pH Oxyhemoglobin Sodium 132 L Potassium Chloride 96.7 L Carbon Dioxide 21 L BUN 34 H Creatinine Glucose POC Glucose Lactic Acid Calcium 8.3 L AST ALT Alkaline Phosphatase 151 H CK-MB (CK-2) 7.1 H CK-MB (CK-2) Rel Index 5.2 H Total Protein Albumin 3.3 L TSH Urine WBC (Auto) Salicylates 01/09/17 01/09/17 01/09/17 10:16 10:16 10:16 WBC RBC Hgb Hct MCV MCH RDW Plt Count Lymph % (Auto) [place] % (Auto) Eos % (Auto) [place] # Seg Neutrophils % Seg Neuts % (Manual) Lymphocytes % (Manual) Seg Neutrophils # Seg Neutrophils # Man Lymphocytes # (Manual) APTT POC ABG pH ABG pH POC ABG pCO2 POC ABG pO2 ABG pO2 ABG HCO3 ABG Base Excess ABG Hemoglobin VBG pH 7.284 L Oxyhemoglobin Sodium Potassium Chloride Carbon Dioxide BUN Creatinine Glucose POC Glucose Lactic Acid Calcium AST ALT Alkaline Phosphatase CK-MB (CK-2) CK-MB (CK-2) Rel Index Total Protein Albumin TSH 52.800 H Urine WBC (Auto) Salicylates < 0.3 L 01/09/17 01/09/17 01/09/17 10:23 11:14 12:49 WBC RBC Hgb Hct MCV MCH RDW Plt Count Lymph % (Auto) [place] % (Auto) Eos % (Auto) [place] # Seg Neutrophils % Seg Neuts % (Manual) Lymphocytes % (Manual) Seg Neutrophils # Seg Neutrophils # Man Lymphocytes # (Manual) APTT POC ABG pH ABG pH POC ABG pCO2 POC ABG pO2 643 H ABG pO2 ABG HCO3 ABG Base Excess ABG Hemoglobin VBG pH Oxyhemoglobin Sodium Potassium Chloride Carbon Dioxide BUN Creatinine Glucose POC Glucose < 40 L Lactic Acid Calcium AST ALT Alkaline Phosphatase CK-MB (CK-2) CK-MB (CK-2) Rel Index Total Protein Albumin TSH Urine WBC (Auto) 61.0 H Salicylates 01/09/17 01/09/17 01/09/17 13:13 14:21 15:09 WBC RBC Hgb Hct MCV MCH RDW Plt Count Lymph % (Auto) [place] % (Auto) Eos % (Auto) [place] # Seg Neutrophils % Seg Neuts % (Manual) Lymphocytes % (Manual) Seg Neutrophils # Seg Neutrophils # Man Lymphocytes # (Manual) APTT POC ABG pH ABG pH POC ABG pCO2 POC ABG pO2 ABG pO2 ABG HCO3 ABG Base Excess ABG Hemoglobin VBG pH Oxyhemoglobin Sodium Potassium Chloride Carbon Dioxide BUN Creatinine Glucose POC Glucose 128 H 65 L 120 H Lactic Acid Calcium AST ALT Alkaline Phosphatase CK-MB (CK-2) CK-MB (CK-2) Rel Index Total Protein Albumin TSH Urine WBC (Auto) Salicylates 01/09/17 01/09/17 01/10/17 16:28 17:14 04:30 WBC 24.1 H RBC 3.38 L Hgb 8.5 L Hct 26.0 L MCV 77 L MCH 25 L RDW 17.9 H Plt Count 474 H Lymph % (Auto) [place] % (Auto) Eos % (Auto) [place] # Seg Neutrophils % Seg Neuts % (Manual) 88.0 H Lymphocytes % (Manual) 4.0 L Seg Neutrophils # Seg Neutrophils # Man 21.2 H Lymphocytes # (Manual) 1.0 L APTT POC ABG pH ABG pH POC ABG pCO2 POC ABG pO2 ABG pO2 ABG HCO3 ABG Base Excess ABG Hemoglobin VBG pH Oxyhemoglobin Sodium Potassium Chloride Carbon Dioxide BUN Creatinine Glucose POC Glucose 44 L 112 H Lactic Acid Calcium AST ALT Alkaline Phosphatase CK-MB (CK-2) CK-MB (CK-2) Rel Index Total Protein Albumin TSH Urine WBC (Auto) Salicylates 01/10/17 01/10/17 01/10/17 04:30 05:41 05:45 WBC RBC Hgb Hct MCV MCH RDW Plt Count Lymph % (Auto) [place] % (Auto) Eos % (Auto) [place] # Seg Neutrophils % Seg Neuts % (Manual) Lymphocytes % (Manual) Seg Neutrophils # Seg Neutrophils # Man Lymphocytes # (Manual) APTT POC ABG pH ABG pH POC ABG pCO2 26.6 L POC ABG pO2 207 H ABG pO2 ABG HCO3 ABG Base Excess ABG Hemoglobin VBG pH Oxyhemoglobin Sodium Potassium Chloride Carbon Dioxide 17 L BUN 27 H Creatinine Glucose POC Glucose 68 L Lactic Acid Calcium 7.5 L AST ALT Alkaline Phosphatase CK-MB (CK-2) CK-MB (CK-2) Rel Index Total Protein Albumin TSH Urine WBC (Auto) Salicylates 01/10/17 01/10/17 01/10/17 07:47 10:50 13:41 WBC RBC Hgb Hct MCV MCH RDW Plt Count Lymph % (Auto) [place] % (Auto) Eos % (Auto) [place] # Seg Neutrophils % Seg Neuts % (Manual) Lymphocytes % (Manual) Seg Neutrophils # Seg Neutrophils # Man Lymphocytes # (Manual) APTT POC ABG pH ABG pH POC ABG pCO2 POC ABG pO2 ABG pO2 ABG HCO3 ABG Base Excess ABG Hemoglobin VBG pH Oxyhemoglobin Sodium Potassium Chloride Carbon Dioxide BUN Creatinine Glucose POC Glucose 148 H 165 H 114 H Lactic Acid Calcium AST ALT Alkaline Phosphatase CK-MB (CK-2) CK-MB (CK-2) Rel Index Total Protein Albumin TSH Urine WBC (Auto) Salicylates 01/10/17 01/10/17 01/10/17 20:20 21:39 23:24 WBC RBC Hgb Hct MCV MCH RDW Plt Count Lymph % (Auto) [place] % (Auto) Eos % (Auto) [place] # Seg Neutrophils % Seg Neuts % (Manual) Lymphocytes % (Manual) Seg Neutrophils # Seg Neutrophils # Man Lymphocytes # (Manual) APTT POC ABG pH ABG pH POC ABG pCO2 POC ABG pO2 ABG pO2 ABG HCO3 ABG Base Excess ABG Hemoglobin VBG pH Oxyhemoglobin Sodium Potassium Chloride Carbon Dioxide BUN Creatinine Glucose POC Glucose 150 H 175 H 155 H Lactic Acid Calcium AST ALT Alkaline Phosphatase CK-MB (CK-2) CK-MB (CK-2) Rel Index Total Protein Albumin TSH Urine WBC (Auto) Salicylates 01/11/17 01/11/17 01/11/17 00:19 04:06 05:20 WBC 15.2 H RBC 3.40 L Hgb 8.9 L Hct 26.3 L MCV 78 L MCH 26 L RDW 18.6 H Plt Count 462 H Lymph % (Auto) 13.2 L [place] % (Auto) Eos % (Auto) [place] # Seg Neutrophils % 80.8 H Seg Neuts % (Manual) Lymphocytes % (Manual) Seg Neutrophils # 12.3 H Seg Neutrophils # Man Lymphocytes # (Manual) APTT POC ABG pH 7.463 H ABG pH POC ABG pCO2 26.2 L POC ABG pO2 185 H ABG pO2 ABG HCO3 ABG Base Excess ABG Hemoglobin VBG pH Oxyhemoglobin Sodium Potassium Chloride Carbon Dioxide BUN Creatinine Glucose POC Glucose 163 H Lactic Acid Calcium AST ALT Alkaline Phosphatase CK-MB (CK-2) CK-MB (CK-2) Rel Index Total Protein Albumin TSH Urine WBC (Auto) Salicylates 01/11/17 01/11/17 01/11/17 05:20 06:21 07:57 WBC RBC Hgb Hct MCV MCH RDW Plt Count Lymph % (Auto) [place] % (Auto) Eos % (Auto) [place] # Seg Neutrophils % Seg Neuts % (Manual) Lymphocytes % (Manual) Seg Neutrophils # Seg Neutrophils # Man Lymphocytes # (Manual) APTT POC ABG pH ABG pH POC ABG pCO2 POC ABG pO2 ABG pO2 ABG HCO3 ABG Base Excess ABG Hemoglobin VBG pH Oxyhemoglobin Sodium Potassium 3.4 L Chloride 111.5 H Carbon Dioxide 17 L BUN Creatinine Glucose 147 H POC Glucose 139 H 188 H Lactic Acid Calcium 8.0 L AST ALT Alkaline Phosphatase CK-MB (CK-2) CK-MB (CK-2) Rel Index Total Protein Albumin TSH Urine WBC (Auto) Salicylates 01/11/17 01/11/17 01/11/17 11:46 16:50 23:15 WBC RBC Hgb Hct MCV MCH RDW Plt Count Lymph % (Auto) [place] % (Auto) Eos % (Auto) [place] # Seg Neutrophils % Seg Neuts % (Manual) Lymphocytes % (Manual) Seg Neutrophils # Seg Neutrophils # Man Lymphocytes # (Manual) APTT POC ABG pH ABG pH POC ABG pCO2 POC ABG pO2 ABG pO2 ABG HCO3 ABG Base Excess ABG Hemoglobin VBG pH Oxyhemoglobin Sodium Potassium Chloride Carbon Dioxide BUN Creatinine Glucose POC Glucose 199 H 235 H 155 H Lactic Acid Calcium AST ALT Alkaline Phosphatase CK-MB (CK-2) CK-MB (CK-2) Rel Index Total Protein Albumin TSH Urine WBC (Auto) Salicylates 01/12/17 01/12/17 01/12/17 05:02 06:56 14:50 WBC RBC Hgb Hct MCV MCH RDW Plt Count Lymph % (Auto) [place] % (Auto) Eos % (Auto) [place] # Seg Neutrophils % Seg Neuts % (Manual) Lymphocytes % (Manual) Seg Neutrophils # Seg Neutrophils # Man Lymphocytes # (Manual) APTT POC ABG pH ABG pH POC ABG pCO2 28.0 L POC ABG pO2 178 H ABG pO2 ABG HCO3 ABG Base Excess ABG Hemoglobin VBG pH Oxyhemoglobin Sodium Potassium Chloride Carbon Dioxide BUN Creatinine Glucose POC Glucose 119 H 164 H Lactic Acid Calcium AST ALT Alkaline Phosphatase CK-MB (CK-2) CK-MB (CK-2) Rel Index Total Protein Albumin TSH Urine WBC (Auto) Salicylates 01/13/17 01/13/17 01/13/17 03:37 03:37 04:26 WBC RBC 3.61 L Hgb 9.3 L Hct 28.0 L MCV 78 L MCH 26 L RDW 18.2 H Plt Count Lymph % (Auto) [place] % (Auto) Eos % (Auto) [place] # Seg Neutrophils % Seg Neuts % (Manual) Lymphocytes % (Manual) Seg Neutrophils # Seg Neutrophils # Man Lymphocytes # (Manual) APTT POC ABG pH 7.485 H ABG pH POC ABG pCO2 25.4 L POC ABG pO2 73 L ABG pO2 ABG HCO3 ABG Base Excess ABG Hemoglobin VBG pH Oxyhemoglobin Sodium Potassium Chloride 112.4 H Carbon Dioxide 19 L BUN Creatinine Glucose 118 H POC Glucose Lactic Acid Calcium 8.0 L AST ALT Alkaline Phosphatase CK-MB (CK-2) CK-MB (CK-2) Rel Index Total Protein Albumin TSH Urine WBC (Auto) Salicylates 01/13/17 01/13/17 01/13/17 06:15 11:50 17:31 WBC RBC Hgb Hct MCV MCH RDW Plt Count Lymph % (Auto) [place] % (Auto) Eos % (Auto) [place] # Seg Neutrophils % Seg Neuts % (Manual) Lymphocytes % (Manual) Seg Neutrophils # Seg Neutrophils # Man Lymphocytes # (Manual) APTT POC ABG pH ABG pH POC ABG pCO2 POC ABG pO2 ABG pO2 ABG HCO3 ABG Base Excess ABG Hemoglobin VBG pH Oxyhemoglobin Sodium Potassium Chloride Carbon Dioxide BUN Creatinine Glucose POC Glucose 116 H 171 H 203 H Lactic Acid Calcium AST ALT Alkaline Phosphatase CK-MB (CK-2) CK-MB (CK-2) Rel Index Total Protein Albumin TSH Urine WBC (Auto) Salicylates 01/14/17 01/14/17 01/14/17 00:02 04:50 04:50 WBC RBC 3.32 L Hgb 8.5 L Hct 26.1 L MCV 79 L MCH 26 L RDW 18.2 H Plt Count Lymph % (Auto) [place] % (Auto) 9.0 H Eos % (Auto) [place] # Seg Neutrophils % Seg Neuts % (Manual) Lymphocytes % (Manual) Seg Neutrophils # Seg Neutrophils # Man Lymphocytes # (Manual) APTT POC ABG pH ABG pH POC ABG pCO2 POC ABG pO2 ABG pO2 ABG HCO3 ABG Base Excess ABG Hemoglobin VBG pH Oxyhemoglobin Sodium Potassium Chloride 112.5 H Carbon Dioxide BUN Creatinine Glucose 149 H POC Glucose 157 H Lactic Acid Calcium 8.1 L AST ALT Alkaline Phosphatase CK-MB (CK-2) CK-MB (CK-2) Rel Index Total Protein Albumin TSH Urine WBC (Auto) Salicylates 01/14/17 01/14/17 01/14/17 05:10 11:27 14:07 WBC RBC Hgb Hct MCV MCH RDW Plt Count Lymph % (Auto) [place] % (Auto) Eos % (Auto) [place] # Seg Neutrophils % Seg Neuts % (Manual) Lymphocytes % (Manual) Seg Neutrophils # Seg Neutrophils # Man Lymphocytes # (Manual) APTT POC ABG pH ABG pH POC ABG pCO2 POC ABG pO2 ABG pO2 ABG HCO3 ABG Base Excess ABG Hemoglobin VBG pH Oxyhemoglobin Sodium Potassium Chloride Carbon Dioxide BUN Creatinine Glucose POC Glucose 176 H 147 H Lactic Acid Calcium AST ALT Alkaline Phosphatase CK-MB (CK-2) CK-MB (CK-2) Rel Index Total Protein Albumin TSH Urine WBC (Auto) 53.0 H Salicylates 01/14/17 01/15/17 01/15/17 16:52 00:04 05:26 WBC RBC Hgb Hct MCV MCH RDW Plt Count Lymph % (Auto) [place] % (Auto) Eos % (Auto) [place] # Seg Neutrophils % Seg Neuts % (Manual) Lymphocytes % (Manual) Seg Neutrophils # Seg Neutrophils # Man Lymphocytes # (Manual) APTT POC ABG pH ABG pH POC ABG pCO2 POC ABG pO2 ABG pO2 ABG HCO3 ABG Base Excess ABG Hemoglobin VBG pH Oxyhemoglobin Sodium Potassium Chloride Carbon Dioxide BUN Creatinine Glucose POC Glucose 131 H 193 H 215 H Lactic Acid Calcium AST ALT Alkaline Phosphatase CK-MB (CK-2) CK-MB (CK-2) Rel Index Total Protein Albumin TSH Urine WBC (Auto) Salicylates 01/15/17 01/15/17 01/15/17 11:49 17:47 21:33 WBC RBC Hgb Hct MCV MCH RDW Plt Count Lymph % (Auto) [place] % (Auto) Eos % (Auto) [place] # Seg Neutrophils % Seg Neuts % (Manual) Lymphocytes % (Manual) Seg Neutrophils # Seg Neutrophils # Man Lymphocytes # (Manual) APTT POC ABG pH ABG pH POC ABG pCO2 POC ABG pO2 ABG pO2 ABG HCO3 ABG Base Excess ABG Hemoglobin VBG pH Oxyhemoglobin Sodium Potassium Chloride Carbon Dioxide BUN Creatinine Glucose POC Glucose 121 H 211 H 275 H Lactic Acid Calcium AST ALT Alkaline Phosphatase CK-MB (CK-2) CK-MB (CK-2) Rel Index Total Protein Albumin TSH Urine WBC (Auto) Salicylates 01/16/17 01/16/17 01/16/17 04:30 05:28 13:45 WBC RBC Hgb Hct MCV MCH RDW Plt Count Lymph % (Auto) [place] % (Auto) Eos % (Auto) [place] # Seg Neutrophils % Seg Neuts % (Manual) Lymphocytes % (Manual) Seg Neutrophils # Seg Neutrophils # Man Lymphocytes # (Manual) APTT POC ABG pH ABG pH 7.457 H POC ABG pCO2 POC ABG pO2 ABG pO2 55.1 L ABG HCO3 19.4 L ABG Base Excess -4.0 L ABG Hemoglobin 6.8 L VBG pH Oxyhemoglobin 94.9 L Sodium Potassium Chloride Carbon Dioxide BUN Creatinine Glucose POC Glucose 271 H 236 H Lactic Acid Calcium AST ALT Alkaline Phosphatase CK-MB (CK-2) CK-MB (CK-2) Rel Index Total Protein Albumin TSH Urine WBC (Auto) Salicylates 01/16/17 01/17/17 01/17/17 21:39 04:10 04:10 WBC 4.4 L RBC 2.98 L Hgb 7.7 L Hct 23.3 L MCV 78 L MCH 26 L RDW 18.1 H Plt Count Lymph % (Auto) [place] % (Auto) Eos % (Auto) [place] # Seg Neutrophils % Seg Neuts % (Manual) Lymphocytes % (Manual) Seg Neutrophils # Seg Neutrophils # Man Lymphocytes # (Manual) APTT POC ABG pH ABG pH POC ABG pCO2 POC ABG pO2 ABG pO2 ABG HCO3 ABG Base Excess ABG Hemoglobin VBG pH Oxyhemoglobin Sodium Potassium 3.3 L Chloride 108.7 H Carbon Dioxide 20 L BUN 8 L Creatinine Glucose 202 H POC Glucose 258 H Lactic Acid Calcium 7.6 L AST ALT Alkaline Phosphatase CK-MB (CK-2) CK-MB (CK-2) Rel Index Total Protein Albumin TSH Urine WBC (Auto) Salicylates 01/17/17 01/17/17 01/17/17 04:35 12:23 16:01 WBC RBC Hgb Hct MCV MCH RDW Plt Count Lymph % (Auto) [place] % (Auto) Eos % (Auto) [place] # Seg Neutrophils % Seg Neuts % (Manual) Lymphocytes % (Manual) Seg Neutrophils # Seg Neutrophils # Man Lymphocytes # (Manual) APTT POC ABG pH ABG pH POC ABG pCO2 POC ABG pO2 ABG pO2 160.3 H ABG HCO3 ABG Base Excess -2.3 L ABG Hemoglobin 7.9 L VBG pH Oxyhemoglobin Sodium Potassium Chloride Carbon Dioxide BUN Creatinine Glucose POC Glucose 321 H 239 H Lactic Acid Calcium AST ALT Alkaline Phosphatase CK-MB (CK-2) CK-MB (CK-2) Rel Index Total Protein Albumin TSH Urine WBC (Auto) Salicylates 01/18/17 01/18/17 01/18/17 05:07 12:09 17:54 WBC RBC Hgb Hct MCV MCH RDW Plt Count Lymph % (Auto) [place] % (Auto) Eos % (Auto) [place] # Seg Neutrophils % Seg Neuts % (Manual) Lymphocytes % (Manual) Seg Neutrophils # Seg Neutrophils # Man Lymphocytes # (Manual) APTT POC ABG pH ABG pH POC ABG pCO2 POC ABG pO2 ABG pO2 ABG HCO3 ABG Base Excess ABG Hemoglobin VBG pH Oxyhemoglobin Sodium Potassium Chloride Carbon Dioxide BUN Creatinine Glucose POC Glucose 155 H 203 H 132 H Lactic Acid Calcium AST ALT Alkaline Phosphatase CK-MB (CK-2) CK-MB (CK-2) Rel Index Total Protein Albumin TSH Urine WBC (Auto) Salicylates 01/18/17 01/19/17 01/19/17 23:43 04:28 12:11 WBC RBC Hgb Hct MCV MCH RDW Plt Count Lymph % (Auto) [place] % (Auto) Eos % (Auto) [place] # Seg Neutrophils % Seg Neuts % (Manual) Lymphocytes % (Manual) Seg Neutrophils # Seg Neutrophils # Man Lymphocytes # (Manual) APTT POC ABG pH ABG pH POC ABG pCO2 POC ABG pO2 ABG pO2 ABG HCO3 ABG Base Excess ABG Hemoglobin VBG pH Oxyhemoglobin Sodium Potassium Chloride Carbon Dioxide BUN Creatinine Glucose POC Glucose 125 H 182 H 153 H Lactic Acid Calcium AST ALT Alkaline Phosphatase CK-MB (CK-2) CK-MB (CK-2) Rel Index Total Protein Albumin TSH Urine WBC (Auto) Salicylates 01/19/17 01/20/17 01/20/17 17:23 00:12 05:44 WBC RBC Hgb Hct MCV MCH RDW Plt Count Lymph % (Auto) [place] % (Auto) Eos % (Auto) [place] # Seg Neutrophils % Seg Neuts % (Manual) Lymphocytes % (Manual) Seg Neutrophils # Seg Neutrophils # Man Lymphocytes # (Manual) APTT POC ABG pH ABG pH POC ABG pCO2 POC ABG pO2 ABG pO2 ABG HCO3 ABG Base Excess ABG Hemoglobin VBG pH Oxyhemoglobin Sodium Potassium Chloride Carbon Dioxide BUN Creatinine Glucose POC Glucose 66 L 139 H 176 H Lactic Acid Calcium AST ALT Alkaline Phosphatase CK-MB (CK-2) CK-MB (CK-2) Rel Index Total Protein Albumin TSH Urine WBC (Auto) Salicylates 01/20/17 01/20/17 01/20/17 11:48 17:42 23:43 WBC RBC Hgb Hct MCV MCH RDW Plt Count Lymph % (Auto) [place] % (Auto) Eos % (Auto) [place] # Seg Neutrophils % Seg Neuts % (Manual) Lymphocytes % (Manual) Seg Neutrophils # Seg Neutrophils # Man Lymphocytes # (Manual) APTT POC ABG pH ABG pH POC ABG pCO2 POC ABG pO2 ABG pO2 ABG HCO3 ABG Base Excess ABG Hemoglobin VBG pH Oxyhemoglobin Sodium Potassium Chloride Carbon Dioxide BUN Creatinine Glucose POC Glucose 218 H 132 H 178 H Lactic Acid Calcium AST ALT Alkaline Phosphatase CK-MB (CK-2) CK-MB (CK-2) Rel Index Total Protein Albumin TSH Urine WBC (Auto) Salicylates 01/21/17 01/21/17 01/21/17 05:34 11:17 23:37 WBC RBC Hgb Hct MCV MCH RDW Plt Count Lymph % (Auto) [place] % (Auto) Eos % (Auto) [place] # Seg Neutrophils % Seg Neuts % (Manual) Lymphocytes % (Manual) Seg Neutrophils # Seg Neutrophils # Man Lymphocytes # (Manual) APTT POC ABG pH ABG pH POC ABG pCO2 POC ABG pO2 ABG pO2 ABG HCO3 ABG Base Excess ABG Hemoglobin VBG pH Oxyhemoglobin Sodium Potassium Chloride Carbon Dioxide BUN Creatinine Glucose POC Glucose 106 H 213 H 140 H Lactic Acid Calcium AST ALT Alkaline Phosphatase CK-MB (CK-2) CK-MB (CK-2) Rel Index Total Protein Albumin TSH Urine WBC (Auto) Salicylates 01/22/17 01/22/17 01/22/17 04:00 04:00 04:58 WBC RBC 3.26 L Hgb 8.3 L Hct 25.5 L MCV 78 L MCH 25 L RDW 17.9 H Plt Count Lymph % (Auto) [place] % (Auto) 7.9 H Eos % (Auto) 6.2 H [place] # Seg Neutrophils % Seg Neuts % (Manual) Lymphocytes % (Manual) Seg Neutrophils # Seg Neutrophils # Man Lymphocytes # (Manual) APTT POC ABG pH ABG pH POC ABG pCO2 POC ABG pO2 ABG pO2 ABG HCO3 ABG Base Excess ABG Hemoglobin VBG pH Oxyhemoglobin Sodium Potassium Chloride 95.5 L Carbon Dioxide 31 H D BUN Creatinine Glucose 134 H POC Glucose 146 H Lactic Acid Calcium AST 44 H ALT Alkaline Phosphatase 379 H CK-MB (CK-2) CK-MB (CK-2) Rel Index Total Protein Albumin 2.7 L TSH Urine WBC (Auto) Salicylates 01/22/17 01/22/17 01/22/17 12:12 18:12 23:39 WBC RBC Hgb Hct MCV MCH RDW Plt Count Lymph % (Auto) [place] % (Auto) Eos % (Auto) [place] # Seg Neutrophils % Seg Neuts % (Manual) Lymphocytes % (Manual) Seg Neutrophils # Seg Neutrophils # Man Lymphocytes # (Manual) APTT POC ABG pH ABG pH POC ABG pCO2 POC ABG pO2 ABG pO2 ABG HCO3 ABG Base Excess ABG Hemoglobin VBG pH Oxyhemoglobin Sodium Potassium Chloride Carbon Dioxide BUN Creatinine Glucose POC Glucose 255 H 182 H 134 H Lactic Acid Calcium AST ALT Alkaline Phosphatase CK-MB (CK-2) CK-MB (CK-2) Rel Index Total Protein Albumin TSH Urine WBC (Auto) Salicylates 01/23/17 01/23/17 01/23/17 04:43 12:12 17:36 WBC RBC Hgb Hct MCV MCH RDW Plt Count Lymph % (Auto) [place] % (Auto) Eos % (Auto) [place] # Seg Neutrophils % Seg Neuts % (Manual) Lymphocytes % (Manual) Seg Neutrophils # Seg Neutrophils # Man Lymphocytes # (Manual) APTT POC ABG pH ABG pH POC ABG pCO2 POC ABG pO2 ABG pO2 ABG HCO3 ABG Base Excess ABG Hemoglobin VBG pH Oxyhemoglobin Sodium Potassium Chloride Carbon Dioxide BUN Creatinine Glucose POC Glucose 218 H 128 H 156 H Lactic Acid Calcium AST ALT Alkaline Phosphatase CK-MB (CK-2) CK-MB (CK-2) Rel Index Total Protein Albumin TSH Urine WBC (Auto) Salicylates 01/24/17 01/24/17 01/24/17 00:08 05:16 11:40 WBC RBC Hgb Hct MCV MCH RDW Plt Count Lymph % (Auto) [place] % (Auto) Eos % (Auto) [place] # Seg Neutrophils % Seg Neuts % (Manual) Lymphocytes % (Manual) Seg Neutrophils # Seg Neutrophils # Man Lymphocytes # (Manual) APTT POC ABG pH ABG pH POC ABG pCO2 POC ABG pO2 ABG pO2 ABG HCO3 ABG Base Excess ABG Hemoglobin VBG pH Oxyhemoglobin Sodium Potassium Chloride Carbon Dioxide BUN Creatinine Glucose POC Glucose 129 H 169 H 187 H Lactic Acid Calcium AST ALT Alkaline Phosphatase CK-MB (CK-2) CK-MB (CK-2) Rel Index Total Protein Albumin TSH Urine WBC (Auto) Salicylates 01/24/17 01/24/17 01/25/17 17:43 23:23 04:56 WBC RBC Hgb Hct MCV MCH RDW Plt Count Lymph % (Auto) [place] % (Auto) Eos % (Auto) [place] # Seg Neutrophils % Seg Neuts % (Manual) Lymphocytes % (Manual) Seg Neutrophils # Seg Neutrophils # Man Lymphocytes # (Manual) APTT POC ABG pH ABG pH POC ABG pCO2 POC ABG pO2 ABG pO2 ABG HCO3 ABG Base Excess ABG Hemoglobin VBG pH Oxyhemoglobin Sodium Potassium Chloride Carbon Dioxide BUN Creatinine Glucose POC Glucose 215 H 222 H 210 H Lactic Acid Calcium AST ALT Alkaline Phosphatase CK-MB (CK-2) CK-MB (CK-2) Rel Index Total Protein Albumin TSH Urine WBC (Auto) Salicylates 01/25/17 01/25/17 01/26/17 11:52 17:37 00:02 WBC RBC Hgb Hct MCV MCH RDW Plt Count Lymph % (Auto) [place] % (Auto) Eos % (Auto) [place] # Seg Neutrophils % Seg Neuts % (Manual) Lymphocytes % (Manual) Seg Neutrophils # Seg Neutrophils # Man Lymphocytes # (Manual) APTT POC ABG pH ABG pH POC ABG pCO2 POC ABG pO2 ABG pO2 ABG HCO3 ABG Base Excess ABG Hemoglobin VBG pH Oxyhemoglobin Sodium Potassium Chloride Carbon Dioxide BUN Creatinine Glucose POC Glucose 284 H 218 H 192 H Lactic Acid Calcium AST ALT Alkaline Phosphatase CK-MB (CK-2) CK-MB (CK-2) Rel Index Total Protein Albumin TSH Urine WBC (Auto) Salicylates 01/26/17 01/26/17 01/26/17 05:33 12:17 17:50 WBC RBC Hgb Hct MCV MCH RDW Plt Count Lymph % (Auto) [place] % (Auto) Eos % (Auto) [place] # Seg Neutrophils % Seg Neuts % (Manual) Lymphocytes % (Manual) Seg Neutrophils # Seg Neutrophils # Man Lymphocytes # (Manual) APTT POC ABG pH ABG pH POC ABG pCO2 POC ABG pO2 ABG pO2 ABG HCO3 ABG Base Excess ABG Hemoglobin VBG pH Oxyhemoglobin Sodium Potassium Chloride Carbon Dioxide BUN Creatinine Glucose POC Glucose 199 H 227 H 229 H Lactic Acid Calcium AST ALT Alkaline Phosphatase CK-MB (CK-2) CK-MB (CK-2) Rel Index Total Protein Albumin TSH Urine WBC (Auto) Salicylates 01/26/17 01/27/17 01/27/17 23:57 05:31 11:42 WBC RBC Hgb Hct MCV MCH RDW Plt Count Lymph % (Auto) [place] % (Auto) Eos % (Auto) [place] # Seg Neutrophils % Seg Neuts % (Manual) Lymphocytes % (Manual) Seg Neutrophils # Seg Neutrophils # Man Lymphocytes # (Manual) APTT POC ABG pH ABG pH POC ABG pCO2 POC ABG pO2 ABG pO2 ABG HCO3 ABG Base Excess ABG Hemoglobin VBG pH Oxyhemoglobin Sodium Potassium Chloride Carbon Dioxide BUN Creatinine Glucose POC Glucose 186 H 285 H 260 H Lactic Acid Calcium AST ALT Alkaline Phosphatase CK-MB (CK-2) CK-MB (CK-2) Rel Index Total Protein Albumin TSH Urine WBC (Auto) Salicylates 01/27/17 01/27/17 01/27/17 17:47 23:58 Unknown WBC 12.1 H RBC 3.28 L Hgb 8.5 L Hct 25.5 L MCV 78 L MCH 26 L RDW 16.8 H Plt Count 601 H Lymph % (Auto) [place] % (Auto) Eos % (Auto) [place] # Seg Neutrophils % Seg Neuts % (Manual) Lymphocytes % (Manual) Seg Neutrophils # Seg Neutrophils # Man Lymphocytes # (Manual) APTT POC ABG pH ABG pH POC ABG pCO2 POC ABG pO2 ABG pO2 ABG HCO3 ABG Base Excess ABG Hemoglobin VBG pH Oxyhemoglobin Sodium Potassium Chloride Carbon Dioxide BUN Creatinine Glucose POC Glucose 329 H 225 H Lactic Acid Calcium AST ALT Alkaline Phosphatase CK-MB (CK-2) CK-MB (CK-2) Rel Index Total Protein Albumin TSH Urine WBC (Auto) Salicylates 01/27/17 01/28/17 01/28/17 Unknown 03:44 03:44 WBC RBC 3.14 L Hgb 8.2 L Hct 24.1 L MCV 77 L MCH 26 L RDW 16.9 H Plt Count 567 H Lymph % (Auto) [place] % (Auto) Eos % (Auto) [place] # Seg Neutrophils % Seg Neuts % (Manual) Lymphocytes % (Manual) Seg Neutrophils # Seg Neutrophils # Man Lymphocytes # (Manual) APTT POC ABG pH ABG pH POC ABG pCO2 POC ABG pO2 ABG pO2 ABG HCO3 ABG Base Excess ABG Hemoglobin VBG pH Oxyhemoglobin Sodium 128 L Potassium 5.4 H Chloride 87.5 L Carbon Dioxide BUN 44 H 42 H Creatinine Glucose 250 H 128 H POC Glucose Lactic Acid Calcium AST ALT Alkaline Phosphatase CK-MB (CK-2) CK-MB (CK-2) Rel Index Total Protein Albumin TSH Urine WBC (Auto) Salicylates 01/28/17 01/28/17 01/28/17 11:43 16:47 17:52 WBC RBC Hgb Hct MCV MCH RDW Plt Count Lymph % (Auto) [place] % (Auto) Eos % (Auto) [place] # Seg Neutrophils % Seg Neuts % (Manual) Lymphocytes % (Manual) Seg Neutrophils # Seg Neutrophils # Man Lymphocytes # (Manual) APTT POC ABG pH ABG pH POC ABG pCO2 POC ABG pO2 ABG pO2 ABG HCO3 ABG Base Excess ABG Hemoglobin VBG pH Oxyhemoglobin Sodium Potassium Chloride Carbon Dioxide BUN Creatinine Glucose POC Glucose 351 H 249 H Lactic Acid Calcium AST ALT Alkaline Phosphatase CK-MB (CK-2) CK-MB (CK-2) Rel Index Total Protein Albumin TSH Urine WBC (Auto) > 182.0 H Salicylates 01/29/17 01/29/17 01/29/17 05:25 05:25 09:32 WBC 13.6 H RBC 3.25 L Hgb 8.3 L Hct 25.1 L MCV 77 L MCH 26 L RDW 16.8 H Plt Count 514 H Lymph % (Auto) [place] % (Auto) Eos % (Auto) [place] # Seg Neutrophils % Seg Neuts % (Manual) Lymphocytes % (Manual) Seg Neutrophils # Seg Neutrophils # Man Lymphocytes # (Manual) APTT POC ABG pH ABG pH POC ABG pCO2 POC ABG pO2 ABG pO2 ABG HCO3 ABG Base Excess ABG Hemoglobin VBG pH Oxyhemoglobin Sodium Potassium Chloride 97.8 L Carbon Dioxide BUN 34 H Creatinine Glucose 222 H POC Glucose Lactic Acid 2.50 H* Calcium AST ALT Alkaline Phosphatase CK-MB (CK-2) CK-MB (CK-2) Rel Index Total Protein Albumin TSH Urine WBC (Auto) Salicylates 01/29/17 01/29/17 01/29/17 11:56 18:11 23:55 WBC RBC Hgb Hct MCV MCH RDW Plt Count Lymph % (Auto) [place] % (Auto) Eos % (Auto) [place] # Seg Neutrophils % Seg Neuts % (Manual) Lymphocytes % (Manual) Seg Neutrophils # Seg Neutrophils # Man Lymphocytes # (Manual) APTT POC ABG pH ABG pH POC ABG pCO2 POC ABG pO2 ABG pO2 ABG HCO3 ABG Base Excess ABG Hemoglobin VBG pH Oxyhemoglobin Sodium Potassium Chloride Carbon Dioxide BUN Creatinine Glucose POC Glucose 261 H 215 H 176 H Lactic Acid Calcium AST ALT Alkaline Phosphatase CK-MB (CK-2) CK-MB (CK-2) Rel Index Total Protein Albumin TSH Urine WBC (Auto) Salicylates 01/30/17 01/30/17 01/30/17 05:31 05:31 05:34 WBC 15.2 H RBC 3.09 L Hgb 7.9 L Hct 23.9 L MCV 77 L MCH 26 L RDW 16.9 H Plt Count 569 H Lymph % (Auto) [place] % (Auto) Eos % (Auto) [place] # Seg Neutrophils % Seg Neuts % (Manual) Lymphocytes % (Manual) Seg Neutrophils # Seg Neutrophils # Man Lymphocytes # (Manual) APTT POC ABG pH ABG pH POC ABG pCO2 POC ABG pO2 ABG pO2 ABG HCO3 ABG Base Excess ABG Hemoglobin VBG pH Oxyhemoglobin Sodium Potassium Chloride Carbon Dioxide BUN 24 H Creatinine Glucose 235 H POC Glucose 243 H Lactic Acid Calcium AST ALT Alkaline Phosphatase CK-MB (CK-2) CK-MB (CK-2) Rel Index Total Protein Albumin TSH Urine WBC (Auto) Salicylates 01/30/17 01/30/17 01/30/17 11:38 17:58 23:29 WBC RBC Hgb Hct MCV MCH RDW Plt Count Lymph % (Auto) [place] % (Auto) Eos % (Auto) [place] # Seg Neutrophils % Seg Neuts % (Manual) Lymphocytes % (Manual) Seg Neutrophils # Seg Neutrophils # Man Lymphocytes # (Manual) APTT POC ABG pH ABG pH POC ABG pCO2 POC ABG pO2 ABG pO2 ABG HCO3 ABG Base Excess ABG Hemoglobin VBG pH Oxyhemoglobin Sodium Potassium Chloride Carbon Dioxide BUN Creatinine Glucose POC Glucose 298 H 208 H 245 H Lactic Acid Calcium AST ALT Alkaline Phosphatase CK-MB (CK-2) CK-MB (CK-2) Rel Index Total Protein Albumin TSH Urine WBC (Auto) Salicylates 01/31/17 01/31/17 01/31/17 04:39 04:39 05:57 WBC 11.4 H RBC 3.22 L Hgb 8.2 L Hct 24.9 L MCV 78 L MCH 25 L RDW 17.2 H Plt Count 576 H Lymph % (Auto) [place] % (Auto) Eos % (Auto) [place] # Seg Neutrophils % Seg Neuts % (Manual) Lymphocytes % (Manual) Seg Neutrophils # Seg Neutrophils # Man Lymphocytes # (Manual) APTT POC ABG pH ABG pH POC ABG pCO2 POC ABG pO2 ABG pO2 ABG HCO3 ABG Base Excess ABG Hemoglobin VBG pH Oxyhemoglobin Sodium Potassium Chloride Carbon Dioxide BUN Creatinine 0.7 L Glucose 223 H POC Glucose 264 H Lactic Acid Calcium AST ALT Alkaline Phosphatase CK-MB (CK-2) CK-MB (CK-2) Rel Index Total Protein Albumin TSH Urine WBC (Auto) Salicylates 01/31/17 01/31/17 01/31/17 12:23 17:41 18:55 WBC RBC Hgb Hct MCV MCH RDW Plt Count Lymph % (Auto) [place] % (Auto) Eos % (Auto) [place] # Seg Neutrophils % Seg Neuts % (Manual) Lymphocytes % (Manual) Seg Neutrophils # Seg Neutrophils # Man Lymphocytes # (Manual) APTT POC ABG pH ABG pH POC ABG pCO2 32.8 L POC ABG pO2 ABG pO2 ABG HCO3 ABG Base Excess ABG Hemoglobin VBG pH Oxyhemoglobin Sodium Potassium Chloride Carbon Dioxide BUN Creatinine Glucose POC Glucose 252 H 208 H Lactic Acid Calcium AST ALT Alkaline Phosphatase CK-MB (CK-2) CK-MB (CK-2) Rel Index Total Protein Albumin TSH Urine WBC (Auto) Salicylates 01/31/17 02/01/17 02/01/17 22:59 03:38 03:38 WBC RBC 2.81 L Hgb 7.4 L Hct 22.1 L MCV 79 L MCH 27 L RDW 17.0 H Plt Count 540 H Lymph % (Auto) [place] % (Auto) Eos % (Auto) [place] # Seg Neutrophils % Seg Neuts % (Manual) Lymphocytes % (Manual) Seg Neutrophils # Seg Neutrophils # Man Lymphocytes # (Manual) APTT POC ABG pH ABG pH POC ABG pCO2 POC ABG pO2 ABG pO2 ABG HCO3 ABG Base Excess ABG Hemoglobin VBG pH Oxyhemoglobin Sodium Potassium Chloride Carbon Dioxide 21 L BUN Creatinine 0.7 L Glucose POC Glucose 40 L Lactic Acid Calcium AST ALT Alkaline Phosphatase CK-MB (CK-2) CK-MB (CK-2) Rel Index Total Protein Albumin TSH Urine WBC (Auto) Salicylates 02/01/17 02/01/17 02/01/17 05:17 12:19 16:44 WBC RBC Hgb Hct MCV MCH RDW Plt Count Lymph % (Auto) [place] % (Auto) Eos % (Auto) [place] # Seg Neutrophils % Seg Neuts % (Manual) Lymphocytes % (Manual) Seg Neutrophils # Seg Neutrophils # Man Lymphocytes # (Manual) APTT POC ABG pH ABG pH POC ABG pCO2 POC ABG pO2 ABG pO2 ABG HCO3 ABG Base Excess ABG Hemoglobin VBG pH Oxyhemoglobin Sodium Potassium Chloride Carbon Dioxide BUN Creatinine Glucose POC Glucose 140 H 213 H 172 H Lactic Acid Calcium AST ALT Alkaline Phosphatase CK-MB (CK-2) CK-MB (CK-2) Rel Index Total Protein Albumin TSH Urine WBC (Auto) Salicylates 02/01/17 02/02/17 02/02/17 23:59 05:14 11:24 WBC RBC Hgb Hct MCV MCH RDW Plt Count Lymph % (Auto) [place] % (Auto) Eos % (Auto) [place] # Seg Neutrophils % Seg Neuts % (Manual) Lymphocytes % (Manual) Seg Neutrophils # Seg Neutrophils # Man Lymphocytes # (Manual) APTT POC ABG pH ABG pH POC ABG pCO2 POC ABG pO2 ABG pO2 ABG HCO3 ABG Base Excess ABG Hemoglobin VBG pH Oxyhemoglobin Sodium Potassium Chloride Carbon Dioxide BUN Creatinine Glucose POC Glucose 181 H 194 H 209 H Lactic Acid Calcium AST ALT Alkaline Phosphatase CK-MB (CK-2) CK-MB (CK-2) Rel Index Total Protein Albumin TSH Urine WBC (Auto) Salicylates 02/02/17 02/02/17 02/02/17 11:46 11:46 17:47 WBC RBC 2.94 L Hgb 7.5 L Hct 23.0 L MCV 78 L MCH 25 L RDW 16.9 H Plt Count 520 H Lymph % (Auto) [place] % (Auto) Eos % (Auto) [place] # Seg Neutrophils % Seg Neuts % (Manual) Lymphocytes % (Manual) Seg Neutrophils # Seg Neutrophils # Man Lymphocytes # (Manual) APTT POC ABG pH ABG pH POC ABG pCO2 POC ABG pO2 ABG pO2 ABG HCO3 ABG Base Excess ABG Hemoglobin VBG pH Oxyhemoglobin Sodium Potassium Chloride Carbon Dioxide BUN Creatinine 0.6 L Glucose 189 H POC Glucose 147 H Lactic Acid Calcium 8.1 L AST ALT Alkaline Phosphatase CK-MB (CK-2) CK-MB (CK-2) Rel Index Total Protein Albumin TSH Urine WBC (Auto) Salicylates 02/02/17 02/03/17 02/03/17 23:32 05:53 11:19 WBC RBC Hgb Hct MCV MCH RDW Plt Count Lymph % (Auto) [place] % (Auto) Eos % (Auto) [place] # Seg Neutrophils % Seg Neuts % (Manual) Lymphocytes % (Manual) Seg Neutrophils # Seg Neutrophils # Man Lymphocytes # (Manual) APTT POC ABG pH ABG pH POC ABG pCO2 POC ABG pO2 ABG pO2 ABG HCO3 ABG Base Excess ABG Hemoglobin VBG pH Oxyhemoglobin Sodium Potassium Chloride Carbon Dioxide BUN Creatinine Glucose POC Glucose 176 H 224 H 228 H Lactic Acid Calcium AST ALT Alkaline Phosphatase CK-MB (CK-2) CK-MB (CK-2) Rel Index Total Protein Albumin TSH Urine WBC (Auto) Salicylates 02/03/17 02/03/17 02/04/17 16:59 23:38 05:45 WBC RBC Hgb Hct MCV MCH RDW Plt Count Lymph % (Auto) [place] % (Auto) Eos % (Auto) [place] # Seg Neutrophils % Seg Neuts % (Manual) Lymphocytes % (Manual) Seg Neutrophils # Seg Neutrophils # Man Lymphocytes # (Manual) APTT POC ABG pH ABG pH POC ABG pCO2 POC ABG pO2 ABG pO2 ABG HCO3 ABG Base Excess ABG Hemoglobin VBG pH Oxyhemoglobin Sodium Potassium Chloride Carbon Dioxide BUN Creatinine Glucose POC Glucose 189 H 191 H 251 H Lactic Acid Calcium AST ALT Alkaline Phosphatase CK-MB (CK-2) CK-MB (CK-2) Rel Index Total Protein Albumin TSH Urine WBC (Auto) Salicylates 02/04/17 02/04/17 02/05/17 11:20 17:20 00:17 WBC RBC Hgb Hct MCV MCH RDW Plt Count Lymph % (Auto) [place] % (Auto) Eos % (Auto) [place] # Seg Neutrophils % Seg Neuts % (Manual) Lymphocytes % (Manual) Seg Neutrophils # Seg Neutrophils # Man Lymphocytes # (Manual) APTT POC ABG pH ABG pH POC ABG pCO2 POC ABG pO2 ABG pO2 ABG HCO3 ABG Base Excess ABG Hemoglobin VBG pH Oxyhemoglobin Sodium Potassium Chloride Carbon Dioxide BUN Creatinine Glucose POC Glucose 243 H 163 H 200 H Lactic Acid Calcium AST ALT Alkaline Phosphatase CK-MB (CK-2) CK-MB (CK-2) Rel Index Total Protein Albumin TSH Urine WBC (Auto) Salicylates 02/05/17 02/05/17 02/05/17 05:38 12:38 16:29 WBC RBC Hgb Hct MCV MCH RDW Plt Count Lymph % (Auto) [place] % (Auto) Eos % (Auto) [place] # Seg Neutrophils % Seg Neuts % (Manual) Lymphocytes % (Manual) Seg Neutrophils # Seg Neutrophils # Man Lymphocytes # (Manual) APTT POC ABG pH ABG pH POC ABG pCO2 POC ABG pO2 ABG pO2 ABG HCO3 ABG Base Excess ABG Hemoglobin VBG pH Oxyhemoglobin Sodium Potassium Chloride Carbon Dioxide BUN Creatinine Glucose POC Glucose 248 H 241 H 257 H Lactic Acid Calcium AST ALT Alkaline Phosphatase CK-MB (CK-2) CK-MB (CK-2) Rel Index Total Protein Albumin TSH Urine WBC (Auto) Salicylates 02/05/17 02/06/17 02/06/17 23:56 05:30 11:50 WBC RBC Hgb Hct MCV MCH RDW Plt Count Lymph % (Auto) [place] % (Auto) Eos % (Auto) [place] # Seg Neutrophils % Seg Neuts % (Manual) Lymphocytes % (Manual) Seg Neutrophils # Seg Neutrophils # Man Lymphocytes # (Manual) APTT POC ABG pH ABG pH POC ABG pCO2 POC ABG pO2 ABG pO2 ABG HCO3 ABG Base Excess ABG Hemoglobin VBG pH Oxyhemoglobin Sodium Potassium Chloride Carbon Dioxide BUN Creatinine Glucose POC Glucose 258 H 120 H 254 H Lactic Acid Calcium AST ALT Alkaline Phosphatase CK-MB (CK-2) CK-MB (CK-2) Rel Index Total Protein Albumin TSH Urine WBC (Auto) Salicylates 02/06/17 02/06/17 02/07/17 17:11 23:50 05:22 WBC RBC Hgb Hct MCV MCH RDW Plt Count Lymph % (Auto) [place] % (Auto) Eos % (Auto) [place] # Seg Neutrophils % Seg Neuts % (Manual) Lymphocytes % (Manual) Seg Neutrophils # Seg Neutrophils # Man Lymphocytes # (Manual) APTT POC ABG pH ABG pH POC ABG pCO2 POC ABG pO2 ABG pO2 ABG HCO3 ABG Base Excess ABG Hemoglobin VBG pH Oxyhemoglobin Sodium Potassium Chloride Carbon Dioxide BUN Creatinine Glucose POC Glucose 149 H 240 H 258 H Lactic Acid Calcium AST ALT Alkaline Phosphatase CK-MB (CK-2) CK-MB (CK-2) Rel Index Total Protein Albumin TSH Urine WBC (Auto) Salicylates 02/07/17 02/07/17 02/07/17 11:15 18:33 23:59 WBC RBC Hgb Hct MCV MCH RDW Plt Count Lymph % (Auto) [place] % (Auto) Eos % (Auto) [place] # Seg Neutrophils % Seg Neuts % (Manual) Lymphocytes % (Manual) Seg Neutrophils # Seg Neutrophils # Man Lymphocytes # (Manual) APTT POC ABG pH ABG pH POC ABG pCO2 POC ABG pO2 ABG pO2 ABG HCO3 ABG Base Excess ABG Hemoglobin VBG pH Oxyhemoglobin Sodium Potassium Chloride Carbon Dioxide BUN Creatinine Glucose POC Glucose 239 H 176 H 186 H Lactic Acid Calcium AST ALT Alkaline Phosphatase CK-MB (CK-2) CK-MB (CK-2) Rel Index Total Protein Albumin TSH Urine WBC (Auto) Salicylates 02/08/17 02/08/17 02/08/17 06:15 11:55 16:55 WBC RBC Hgb Hct MCV MCH RDW Plt Count Lymph % (Auto) [place] % (Auto) Eos % (Auto) [place] # Seg Neutrophils % Seg Neuts % (Manual) Lymphocytes % (Manual) Seg Neutrophils # Seg Neutrophils # Man Lymphocytes # (Manual) APTT POC ABG pH ABG pH POC ABG pCO2 POC ABG pO2 ABG pO2 ABG HCO3 ABG Base Excess ABG Hemoglobin VBG pH Oxyhemoglobin Sodium Potassium Chloride Carbon Dioxide BUN Creatinine Glucose POC Glucose 195 H 129 H 246 H Lactic Acid Calcium AST ALT Alkaline Phosphatase CK-MB (CK-2) CK-MB (CK-2) Rel Index Total Protein Albumin TSH Urine WBC (Auto) Salicylates 02/08/17 02/09/17 02/09/17 23:51 05:51 07:24 WBC 14.7 H RBC 3.39 L Hgb 8.9 L Hct 26.4 L MCV 78 L MCH 26 L RDW 18.4 H Plt Count 670 H Lymph % (Auto) 11.8 L [place] % (Auto) Eos % (Auto) [place] # Seg Neutrophils % 81.2 H Seg Neuts % (Manual) Lymphocytes % (Manual) Seg Neutrophils # 11.9 H Seg Neutrophils # Man Lymphocytes # (Manual) APTT POC ABG pH ABG pH POC ABG pCO2 POC ABG pO2 ABG pO2 ABG HCO3 ABG Base Excess ABG Hemoglobin VBG pH Oxyhemoglobin Sodium Potassium Chloride Carbon Dioxide BUN Creatinine Glucose POC Glucose 262 H 295 H Lactic Acid Calcium AST ALT Alkaline Phosphatase CK-MB (CK-2) CK-MB (CK-2) Rel Index Total Protein Albumin TSH Urine WBC (Auto) Salicylates 02/09/17 02/09/17 02/09/17 07:24 12:08 18:39 WBC RBC Hgb Hct MCV MCH RDW Plt Count Lymph % (Auto) [place] % (Auto) Eos % (Auto) [place] # Seg Neutrophils % Seg Neuts % (Manual) Lymphocytes % (Manual) Seg Neutrophils # Seg Neutrophils # Man Lymphocytes # (Manual) APTT POC ABG pH ABG pH POC ABG pCO2 POC ABG pO2 ABG pO2 ABG HCO3 ABG Base Excess ABG Hemoglobin VBG pH Oxyhemoglobin Sodium Potassium Chloride 95.5 L Carbon Dioxide BUN 52 H Creatinine Glucose 277 H POC Glucose 236 H 151 H Lactic Acid Calcium AST ALT Alkaline Phosphatase CK-MB (CK-2) CK-MB (CK-2) Rel Index Total Protein Albumin TSH Urine WBC (Auto) Salicylates 02/10/17 02/10/17 02/10/17 00:01 05:44 11:21 WBC RBC Hgb Hct MCV MCH RDW Plt Count Lymph % (Auto) [place] % (Auto) Eos % (Auto) [place] # Seg Neutrophils % Seg Neuts % (Manual) Lymphocytes % (Manual) Seg Neutrophils # Seg Neutrophils # Man Lymphocytes # (Manual) APTT POC ABG pH ABG pH POC ABG pCO2 POC ABG pO2 ABG pO2 ABG HCO3 ABG Base Excess ABG Hemoglobin VBG pH Oxyhemoglobin Sodium Potassium Chloride Carbon Dioxide BUN Creatinine Glucose POC Glucose 210 H 201 H 233 H Lactic Acid Calcium AST ALT Alkaline Phosphatase CK-MB (CK-2) CK-MB (CK-2) Rel Index Total Protein Albumin TSH Urine WBC (Auto) Salicylates 02/10/17 02/10/17 02/11/17 17:29 23:56 05:24 WBC RBC Hgb Hct MCV MCH RDW Plt Count Lymph % (Auto) [place] % (Auto) Eos % (Auto) [place] # Seg Neutrophils % Seg Neuts % (Manual) Lymphocytes % (Manual) Seg Neutrophils # Seg Neutrophils # Man Lymphocytes # (Manual) APTT POC ABG pH ABG pH POC ABG pCO2 POC ABG pO2 ABG pO2 ABG HCO3 ABG Base Excess ABG Hemoglobin VBG pH Oxyhemoglobin Sodium Potassium Chloride Carbon Dioxide BUN Creatinine Glucose POC Glucose 167 H 191 H 135 H Lactic Acid Calcium AST ALT Alkaline Phosphatase CK-MB (CK-2) CK-MB (CK-2) Rel Index Total Protein Albumin TSH Urine WBC (Auto) Salicylates 02/11/17 02/11/17 02/11/17 12:25 17:03 23:59 WBC RBC Hgb Hct MCV MCH RDW Plt Count Lymph % (Auto) [place] % (Auto) Eos % (Auto) [place] # Seg Neutrophils % Seg Neuts % (Manual) Lymphocytes % (Manual) Seg Neutrophils # Seg Neutrophils # Man Lymphocytes # (Manual) APTT POC ABG pH ABG pH POC ABG pCO2 POC ABG pO2 ABG pO2 ABG HCO3 ABG Base Excess ABG Hemoglobin VBG pH Oxyhemoglobin Sodium Potassium Chloride Carbon Dioxide BUN Creatinine Glucose POC Glucose 275 H 172 H 215 H Lactic Acid Calcium AST ALT Alkaline Phosphatase CK-MB (CK-2) CK-MB (CK-2) Rel Index Total Protein Albumin TSH Urine WBC (Auto) Salicylates 02/12/17 02/12/17 02/12/17 05:39 11:33 17:55 WBC RBC Hgb Hct MCV MCH RDW Plt Count Lymph % (Auto) [place] % (Auto) Eos % (Auto) [place] # Seg Neutrophils % Seg Neuts % (Manual) Lymphocytes % (Manual) Seg Neutrophils # Seg Neutrophils # Man Lymphocytes # (Manual) APTT POC ABG pH ABG pH POC ABG pCO2 POC ABG pO2 ABG pO2 ABG HCO3 ABG Base Excess ABG Hemoglobin VBG pH Oxyhemoglobin Sodium Potassium Chloride Carbon Dioxide BUN Creatinine Glucose POC Glucose 261 H 217 H 172 H Lactic Acid Calcium AST ALT Alkaline Phosphatase CK-MB (CK-2) CK-MB (CK-2) Rel Index Total Protein Albumin TSH Urine WBC (Auto) Salicylates 02/13/17 02/13/17 02/13/17 00:25 06:46 11:26 WBC RBC Hgb Hct MCV MCH RDW Plt Count Lymph % (Auto) [place] % (Auto) Eos % (Auto) [place] # Seg Neutrophils % Seg Neuts % (Manual) Lymphocytes % (Manual) Seg Neutrophils # Seg Neutrophils # Man Lymphocytes # (Manual) APTT POC ABG pH ABG pH POC ABG pCO2 POC ABG pO2 ABG pO2 ABG HCO3 ABG Base Excess ABG Hemoglobin VBG pH Oxyhemoglobin Sodium Potassium Chloride Carbon Dioxide BUN Creatinine Glucose POC Glucose 207 H 219 H 231 H Lactic Acid Calcium AST ALT Alkaline Phosphatase CK-MB (CK-2) CK-MB (CK-2) Rel Index Total Protein Albumin TSH Urine WBC (Auto) Salicylates 02/13/17 02/13/17 02/14/17 17:12 23:44 05:44 WBC RBC Hgb Hct MCV MCH RDW Plt Count Lymph % (Auto) [place] % (Auto) Eos % (Auto) [place] # Seg Neutrophils % Seg Neuts % (Manual) Lymphocytes % (Manual) Seg Neutrophils # Seg Neutrophils # Man Lymphocytes # (Manual) APTT POC ABG pH ABG pH POC ABG pCO2 POC ABG pO2 ABG pO2 ABG HCO3 ABG Base Excess ABG Hemoglobin VBG pH Oxyhemoglobin Sodium Potassium Chloride Carbon Dioxide BUN Creatinine Glucose POC Glucose 190 H 256 H 184 H Lactic Acid Calcium AST ALT Alkaline Phosphatase CK-MB (CK-2) CK-MB (CK-2) Rel Index Total Protein Albumin TSH Urine WBC (Auto) Salicylates 02/14/17 02/14/17 02/14/17 12:21 17:57 23:18 WBC RBC Hgb Hct MCV MCH RDW Plt Count Lymph % (Auto) [place] % (Auto) Eos % (Auto) [place] # Seg Neutrophils % Seg Neuts % (Manual) Lymphocytes % (Manual) Seg Neutrophils # Seg Neutrophils # Man Lymphocytes # (Manual) APTT POC ABG pH ABG pH POC ABG pCO2 POC ABG pO2 ABG pO2 ABG HCO3 ABG Base Excess ABG Hemoglobin VBG pH Oxyhemoglobin Sodium Potassium Chloride Carbon Dioxide BUN Creatinine Glucose POC Glucose 233 H 155 H 165 H Lactic Acid Calcium AST ALT Alkaline Phosphatase CK-MB (CK-2) CK-MB (CK-2) Rel Index Total Protein Albumin TSH Urine WBC (Auto) Salicylates 02/15/17 02/15/17 02/15/17 05:33 11:45 17:20 WBC RBC Hgb Hct MCV MCH RDW Plt Count Lymph % (Auto) [place] % (Auto) Eos % (Auto) [place] # Seg Neutrophils % Seg Neuts % (Manual) Lymphocytes % (Manual) Seg Neutrophils # Seg Neutrophils # Man Lymphocytes # (Manual) APTT POC ABG pH ABG pH POC ABG pCO2 POC ABG pO2 ABG pO2 ABG HCO3 ABG Base Excess ABG Hemoglobin VBG pH Oxyhemoglobin Sodium Potassium Chloride Carbon Dioxide BUN Creatinine Glucose POC Glucose 239 H 130 H 189 H Lactic Acid Calcium AST ALT Alkaline Phosphatase CK-MB (CK-2) CK-MB (CK-2) Rel Index Total Protein Albumin TSH Urine WBC (Auto) Salicylates 02/16/17 02/16/17 02/16/17 00:14 05:09 12:31 WBC RBC Hgb Hct MCV MCH RDW Plt Count Lymph % (Auto) [place] % (Auto) Eos % (Auto) [place] # Seg Neutrophils % Seg Neuts % (Manual) Lymphocytes % (Manual) Seg Neutrophils # Seg Neutrophils # Man Lymphocytes # (Manual) APTT POC ABG pH ABG pH POC ABG pCO2 POC ABG pO2 ABG pO2 ABG HCO3 ABG Base Excess ABG Hemoglobin VBG pH Oxyhemoglobin Sodium Potassium Chloride Carbon Dioxide BUN Creatinine Glucose POC Glucose 197 H 226 H 178 H Lactic Acid Calcium AST ALT Alkaline Phosphatase CK-MB (CK-2) CK-MB (CK-2) Rel Index Total Protein Albumin TSH Urine WBC (Auto) Salicylates 02/16/17 02/16/17 02/17/17 16:35 23:49 05:37 WBC RBC Hgb Hct MCV MCH RDW Plt Count Lymph % (Auto) [place] % (Auto) Eos % (Auto) [place] # Seg Neutrophils % Seg Neuts % (Manual) Lymphocytes % (Manual) Seg Neutrophils # Seg Neutrophils # Man Lymphocytes # (Manual) APTT POC ABG pH ABG pH POC ABG pCO2 POC ABG pO2 ABG pO2 ABG HCO3 ABG Base Excess ABG Hemoglobin VBG pH Oxyhemoglobin Sodium Potassium Chloride Carbon Dioxide BUN Creatinine Glucose POC Glucose 174 H 62 L 153 H Lactic Acid Calcium AST ALT Alkaline Phosphatase CK-MB (CK-2) CK-MB (CK-2) Rel Index Total Protein Albumin TSH Urine WBC (Auto) Salicylates 02/17/17 02/17/17 02/17/17 11:39 17:02 22:24 WBC RBC Hgb Hct MCV MCH RDW Plt Count Lymph % (Auto) [place] % (Auto) Eos % (Auto) [place] # Seg Neutrophils % Seg Neuts % (Manual) Lymphocytes % (Manual) Seg Neutrophils # Seg Neutrophils # Man Lymphocytes # (Manual) APTT POC ABG pH ABG pH POC ABG pCO2 POC ABG pO2 ABG pO2 ABG HCO3 ABG Base Excess ABG Hemoglobin VBG pH Oxyhemoglobin Sodium Potassium Chloride Carbon Dioxide BUN Creatinine Glucose POC Glucose 231 H 112 H 116 H Lactic Acid Calcium AST ALT Alkaline Phosphatase CK-MB (CK-2) CK-MB (CK-2) Rel Index Total Protein Albumin TSH Urine WBC (Auto) Salicylates 02/18/17 02/19/17 02/19/17 15:34 05:09 07:57 WBC RBC Hgb Hct MCV MCH RDW Plt Count Lymph % (Auto) [place] % (Auto) Eos % (Auto) [place] # Seg Neutrophils % Seg Neuts % (Manual) Lymphocytes % (Manual) Seg Neutrophils # Seg Neutrophils # Man Lymphocytes # (Manual) APTT POC ABG pH ABG pH POC ABG pCO2 POC ABG pO2 ABG pO2 ABG HCO3 ABG Base Excess ABG Hemoglobin VBG pH Oxyhemoglobin Sodium Potassium Chloride Carbon Dioxide BUN Creatinine Glucose POC Glucose 215 H 218 H 283 H Lactic Acid Calcium AST ALT Alkaline Phosphatase CK-MB (CK-2) CK-MB (CK-2) Rel Index Total Protein Albumin TSH Urine WBC (Auto) Salicylates 02/19/17 02/19/17 02/20/17 14:49 22:10 05:10 WBC RBC Hgb Hct MCV MCH RDW Plt Count Lymph % (Auto) [place] % (Auto) Eos % (Auto) [place] # Seg Neutrophils % Seg Neuts % (Manual) Lymphocytes % (Manual) Seg Neutrophils # Seg Neutrophils # Man Lymphocytes # (Manual) APTT POC ABG pH ABG pH POC ABG pCO2 POC ABG pO2 ABG pO2 ABG HCO3 ABG Base Excess ABG Hemoglobin VBG pH Oxyhemoglobin Sodium Potassium Chloride Carbon Dioxide BUN Creatinine Glucose POC Glucose 290 H 169 H 209 H Lactic Acid Calcium AST ALT Alkaline Phosphatase CK-MB (CK-2) CK-MB (CK-2) Rel Index Total Protein Albumin TSH Urine WBC (Auto) Salicylates 02/20/17 02/20/17 02/21/17 15:05 21:52 02:00 WBC RBC Hgb Hct MCV MCH RDW Plt Count Lymph % (Auto) [place] % (Auto) Eos % (Auto) [place] # Seg Neutrophils % Seg Neuts % (Manual) Lymphocytes % (Manual) Seg Neutrophils # Seg Neutrophils # Man Lymphocytes # (Manual) APTT POC ABG pH ABG pH POC ABG pCO2 POC ABG pO2 ABG pO2 ABG HCO3 ABG Base Excess ABG Hemoglobin VBG pH Oxyhemoglobin Sodium Potassium Chloride Carbon Dioxide BUN Creatinine Glucose POC Glucose 172 H 209 H 216 H Lactic Acid Calcium AST ALT Alkaline Phosphatase CK-MB (CK-2) CK-MB (CK-2) Rel Index Total Protein Albumin TSH Urine WBC (Auto) Salicylates 02/21/17 02/21/17 02/21/17 04:54 14:43 17:47 WBC RBC Hgb Hct MCV MCH RDW Plt Count Lymph % (Auto) [place] % (Auto) Eos % (Auto) [place] # Seg Neutrophils % Seg Neuts % (Manual) Lymphocytes % (Manual) Seg Neutrophils # Seg Neutrophils # Man Lymphocytes # (Manual) APTT POC ABG pH ABG pH POC ABG pCO2 POC ABG pO2 ABG pO2 ABG HCO3 ABG Base Excess ABG Hemoglobin VBG pH Oxyhemoglobin Sodium Potassium Chloride Carbon Dioxide BUN Creatinine Glucose POC Glucose 227 H 290 H 220 H Lactic Acid Calcium AST ALT Alkaline Phosphatase CK-MB (CK-2) CK-MB (CK-2) Rel Index Total Protein Albumin TSH Urine WBC (Auto) Salicylates 02/21/17 02/22/17 02/22/17 22:02 04:52 15:25 WBC RBC Hgb Hct MCV MCH RDW Plt Count Lymph % (Auto) [place] % (Auto) Eos % (Auto) [place] # Seg Neutrophils % Seg Neuts % (Manual) Lymphocytes % (Manual) Seg Neutrophils # Seg Neutrophils # Man Lymphocytes # (Manual) APTT POC ABG pH ABG pH POC ABG pCO2 POC ABG pO2 ABG pO2 ABG HCO3 ABG Base Excess ABG Hemoglobin VBG pH Oxyhemoglobin Sodium Potassium Chloride Carbon Dioxide BUN Creatinine Glucose POC Glucose 246 H 212 H 236 H Lactic Acid Calcium AST ALT Alkaline Phosphatase CK-MB (CK-2) CK-MB (CK-2) Rel Index Total Protein Albumin TSH Urine WBC (Auto) Salicylates 02/22/17 02/23/17 02/23/17 21:33 06:04 10:00 WBC RBC Hgb Hct MCV MCH RDW Plt Count Lymph % (Auto) [place] % (Auto) Eos % (Auto) [place] # Seg Neutrophils % Seg Neuts % (Manual) Lymphocytes % (Manual) Seg Neutrophils # Seg Neutrophils # Man Lymphocytes # (Manual) APTT POC ABG pH ABG pH POC ABG pCO2 POC ABG pO2 ABG pO2 ABG HCO3 ABG Base Excess ABG Hemoglobin VBG pH Oxyhemoglobin Sodium Potassium Chloride Carbon Dioxide BUN Creatinine Glucose POC Glucose 255 H 208 H 174 H Lactic Acid Calcium AST ALT Alkaline Phosphatase CK-MB (CK-2) CK-MB (CK-2) Rel Index Total Protein Albumin TSH Urine WBC (Auto) Salicylates 02/23/17 02/23/17 02/23/17 12:52 17:15 21:51 WBC RBC Hgb Hct MCV MCH RDW Plt Count Lymph % (Auto) [place] % (Auto) Eos % (Auto) [place] # Seg Neutrophils % Seg Neuts % (Manual) Lymphocytes % (Manual) Seg Neutrophils # Seg Neutrophils # Man Lymphocytes # (Manual) APTT POC ABG pH ABG pH POC ABG pCO2 POC ABG pO2 ABG pO2 ABG HCO3 ABG Base Excess ABG Hemoglobin VBG pH Oxyhemoglobin Sodium Potassium Chloride Carbon Dioxide BUN Creatinine Glucose POC Glucose 203 H 269 H 205 H Lactic Acid Calcium AST ALT Alkaline Phosphatase CK-MB (CK-2) CK-MB (CK-2) Rel Index Total Protein Albumin TSH Urine WBC (Auto) Salicylates 02/24/17 02/24/17 02/24/17 10:23 17:45 21:24 WBC RBC Hgb Hct MCV MCH RDW Plt Count Lymph % (Auto) [place] % (Auto) Eos % (Auto) [place] # Seg Neutrophils % Seg Neuts % (Manual) Lymphocytes % (Manual) Seg Neutrophils # Seg Neutrophils # Man Lymphocytes # (Manual) APTT POC ABG pH ABG pH POC ABG pCO2 POC ABG pO2 ABG pO2 ABG HCO3 ABG Base Excess ABG Hemoglobin VBG pH Oxyhemoglobin Sodium Potassium Chloride Carbon Dioxide BUN Creatinine Glucose POC Glucose 280 H 239 H 254 H Lactic Acid Calcium AST ALT Alkaline Phosphatase CK-MB (CK-2) CK-MB (CK-2) Rel Index Total Protein Albumin TSH Urine WBC (Auto) Salicylates 02/25/17 02/25/17 02/25/17 02:12 05:17 14:32 WBC RBC Hgb Hct MCV MCH RDW Plt Count Lymph % (Auto) [place] % (Auto) Eos % (Auto) [place] # Seg Neutrophils % Seg Neuts % (Manual) Lymphocytes % (Manual) Seg Neutrophils # Seg Neutrophils # Man Lymphocytes # (Manual) APTT POC ABG pH ABG pH POC ABG pCO2 POC ABG pO2 ABG pO2 ABG HCO3 ABG Base Excess ABG Hemoglobin VBG pH Oxyhemoglobin Sodium Potassium Chloride Carbon Dioxide BUN Creatinine Glucose POC Glucose 296 H 332 H 353 H Lactic Acid Calcium AST ALT Alkaline Phosphatase CK-MB (CK-2) CK-MB (CK-2) Rel Index Total Protein Albumin TSH Urine WBC (Auto) Salicylates 02/25/17 02/26/17 02/26/17 22:14 00:37 05:52 WBC RBC Hgb Hct MCV MCH RDW Plt Count Lymph % (Auto) [place] % (Auto) Eos % (Auto) [place] # Seg Neutrophils % Seg Neuts % (Manual) Lymphocytes % (Manual) Seg Neutrophils # Seg Neutrophils # Man Lymphocytes # (Manual) APTT POC ABG pH ABG pH POC ABG pCO2 POC ABG pO2 ABG pO2 ABG HCO3 ABG Base Excess ABG Hemoglobin VBG pH Oxyhemoglobin Sodium Potassium Chloride Carbon Dioxide BUN Creatinine Glucose POC Glucose 201 H 233 H 269 H Lactic Acid Calcium AST ALT Alkaline Phosphatase CK-MB (CK-2) CK-MB (CK-2) Rel Index Total Protein Albumin TSH Urine WBC (Auto) Salicylates 02/26/17 02/26/17 02/26/17 11:48 13:49 21:26 WBC RBC Hgb Hct MCV MCH RDW Plt Count Lymph % (Auto) [place] % (Auto) Eos % (Auto) [place] # Seg Neutrophils % Seg Neuts % (Manual) Lymphocytes % (Manual) Seg Neutrophils # Seg Neutrophils # Man Lymphocytes # (Manual) APTT POC ABG pH ABG pH POC ABG pCO2 POC ABG pO2 ABG pO2 ABG HCO3 ABG Base Excess ABG Hemoglobin VBG pH Oxyhemoglobin Sodium Potassium Chloride Carbon Dioxide BUN Creatinine Glucose POC Glucose 333 H 322 H 244 H Lactic Acid Calcium AST ALT Alkaline Phosphatase CK-MB (CK-2) CK-MB (CK-2) Rel Index Total Protein Albumin TSH Urine WBC (Auto) Salicylates 02/27/17 02/27/17 02/27/17 05:27 13:51 21:48 WBC RBC Hgb Hct MCV MCH RDW Plt Count Lymph % (Auto) [place] % (Auto) Eos % (Auto) [place] # Seg Neutrophils % Seg Neuts % (Manual) Lymphocytes % (Manual) Seg Neutrophils # Seg Neutrophils # Man Lymphocytes # (Manual) APTT POC ABG pH ABG pH POC ABG pCO2 POC ABG pO2 ABG pO2 ABG HCO3 ABG Base Excess ABG Hemoglobin VBG pH Oxyhemoglobin Sodium Potassium Chloride Carbon Dioxide BUN Creatinine Glucose POC Glucose 217 H 239 H 254 H Lactic Acid Calcium AST ALT Alkaline Phosphatase CK-MB (CK-2) CK-MB (CK-2) Rel Index Total Protein Albumin TSH Urine WBC (Auto) Salicylates 02/28/17 02/28/17 02/28/17 05:38 11:00 19:44 WBC RBC Hgb Hct MCV MCH RDW Plt Count Lymph % (Auto) [place] % (Auto) Eos % (Auto) [place] # Seg Neutrophils % Seg Neuts % (Manual) Lymphocytes % (Manual) Seg Neutrophils # Seg Neutrophils # Man Lymphocytes # (Manual) APTT POC ABG pH ABG pH POC ABG pCO2 POC ABG pO2 ABG pO2 ABG HCO3 ABG Base Excess ABG Hemoglobin VBG pH Oxyhemoglobin Sodium Potassium Chloride Carbon Dioxide BUN Creatinine Glucose POC Glucose 325 H 203 H 116 H Lactic Acid Calcium AST ALT Alkaline Phosphatase CK-MB (CK-2) CK-MB (CK-2) Rel Index Total Protein Albumin TSH Urine WBC (Auto) Salicylates 03/01/17 03/01/17 03/01/17 00:08 05:31 12:17 WBC RBC Hgb Hct MCV MCH RDW Plt Count Lymph % (Auto) [place] % (Auto) Eos % (Auto) [place] # Seg Neutrophils % Seg Neuts % (Manual) Lymphocytes % (Manual) Seg Neutrophils # Seg Neutrophils # Man Lymphocytes # (Manual) APTT POC ABG pH ABG pH POC ABG pCO2 POC ABG pO2 ABG pO2 ABG HCO3 ABG Base Excess ABG Hemoglobin VBG pH Oxyhemoglobin Sodium Potassium Chloride Carbon Dioxide BUN Creatinine Glucose POC Glucose 202 H 183 H 184 H Lactic Acid Calcium AST ALT Alkaline Phosphatase CK-MB (CK-2) CK-MB (CK-2) Rel Index Total Protein Albumin TSH Urine WBC (Auto) Salicylates 03/02/17 03/02/17 03/02/17 00:12 05:58 18:22 WBC RBC Hgb Hct MCV MCH RDW Plt Count Lymph % (Auto) [place] % (Auto) Eos % (Auto) [place] # Seg Neutrophils % Seg Neuts % (Manual) Lymphocytes % (Manual) Seg Neutrophils # Seg Neutrophils # Man Lymphocytes # (Manual) APTT POC ABG pH ABG pH POC ABG pCO2 POC ABG pO2 ABG pO2 ABG HCO3 ABG Base Excess ABG Hemoglobin VBG pH Oxyhemoglobin Sodium Potassium Chloride Carbon Dioxide BUN Creatinine Glucose POC Glucose 117 H 176 H 156 H Lactic Acid Calcium AST ALT Alkaline Phosphatase CK-MB (CK-2) CK-MB (CK-2) Rel Index Total Protein Albumin TSH Urine WBC (Auto) Salicylates 03/02/17 03/03/17 03/03/17 23:51 05:44 11:32 WBC RBC Hgb Hct MCV MCH RDW Plt Count Lymph % (Auto) [place] % (Auto) Eos % (Auto) [place] # Seg Neutrophils % Seg Neuts % (Manual) Lymphocytes % (Manual) Seg Neutrophils # Seg Neutrophils # Man Lymphocytes # (Manual) APTT POC ABG pH ABG pH POC ABG pCO2 POC ABG pO2 ABG pO2 ABG HCO3 ABG Base Excess ABG Hemoglobin VBG pH Oxyhemoglobin Sodium Potassium Chloride Carbon Dioxide BUN Creatinine Glucose POC Glucose 211 H 117 H 133 H Lactic Acid Calcium AST ALT Alkaline Phosphatase CK-MB (CK-2) CK-MB (CK-2) Rel Index Total Protein Albumin TSH Urine WBC (Auto) Salicylates 03/03/17 03/03/17 03/04/17 17:43 23:17 05:30 WBC RBC Hgb Hct MCV MCH RDW Plt Count Lymph % (Auto) [place] % (Auto) Eos % (Auto) [place] # Seg Neutrophils % Seg Neuts % (Manual) Lymphocytes % (Manual) Seg Neutrophils # Seg Neutrophils # Man Lymphocytes # (Manual) APTT POC ABG pH ABG pH POC ABG pCO2 POC ABG pO2 ABG pO2 ABG HCO3 ABG Base Excess ABG Hemoglobin VBG pH Oxyhemoglobin Sodium Potassium Chloride Carbon Dioxide BUN Creatinine Glucose POC Glucose 206 H 170 H 126 H Lactic Acid Calcium AST ALT Alkaline Phosphatase CK-MB (CK-2) CK-MB (CK-2) Rel Index Total Protein Albumin TSH Urine WBC (Auto) Salicylates 03/04/17 03/04/17 03/05/17 12:17 17:27 05:20 WBC RBC Hgb Hct MCV MCH RDW Plt Count Lymph % (Auto) [place] % (Auto) Eos % (Auto) [place] # Seg Neutrophils % Seg Neuts % (Manual) Lymphocytes % (Manual) Seg Neutrophils # Seg Neutrophils # Man Lymphocytes # (Manual) APTT POC ABG pH ABG pH POC ABG pCO2 POC ABG pO2 ABG pO2 ABG HCO3 ABG Base Excess ABG Hemoglobin VBG pH Oxyhemoglobin Sodium Potassium Chloride Carbon Dioxide BUN Creatinine Glucose POC Glucose 135 H 121 H 185 H Lactic Acid Calcium AST ALT Alkaline Phosphatase CK-MB (CK-2) CK-MB (CK-2) Rel Index Total Protein Albumin TSH Urine WBC (Auto) Salicylates 03/05/17 03/06/17 03/06/17 11:50 11:52 17:34 WBC RBC Hgb Hct MCV MCH RDW Plt Count Lymph % (Auto) [place] % (Auto) Eos % (Auto) [place] # Seg Neutrophils % Seg Neuts % (Manual) Lymphocytes % (Manual) Seg Neutrophils # Seg Neutrophils # Man Lymphocytes # (Manual) APTT POC ABG pH ABG pH POC ABG pCO2 POC ABG pO2 ABG pO2 ABG HCO3 ABG Base Excess ABG Hemoglobin VBG pH Oxyhemoglobin Sodium Potassium Chloride Carbon Dioxide BUN Creatinine Glucose POC Glucose 116 H 133 H 181 H Lactic Acid Calcium AST ALT Alkaline Phosphatase CK-MB (CK-2) CK-MB (CK-2) Rel Index Total Protein Albumin TSH Urine WBC (Auto) Salicylates 03/07/17 03/07/17 03/07/17 05:21 11:36 17:49 WBC RBC Hgb Hct MCV MCH RDW Plt Count Lymph % (Auto) [place] % (Auto) Eos % (Auto) [place] # Seg Neutrophils % Seg Neuts % (Manual) Lymphocytes % (Manual) Seg Neutrophils # Seg Neutrophils # Man Lymphocytes # (Manual) APTT POC ABG pH ABG pH POC ABG pCO2 POC ABG pO2 ABG pO2 ABG HCO3 ABG Base Excess ABG Hemoglobin VBG pH Oxyhemoglobin Sodium Potassium Chloride Carbon Dioxide BUN Creatinine Glucose POC Glucose 159 H 137 H 158 H Lactic Acid Calcium AST ALT Alkaline Phosphatase CK-MB (CK-2) CK-MB (CK-2) Rel Index Total Protein Albumin TSH Urine WBC (Auto) Salicylates 03/08/17 03/08/17 03/08/17 05:51 13:58 23:50 WBC RBC Hgb Hct MCV MCH RDW Plt Count Lymph % (Auto) [place] % (Auto) Eos % (Auto) [place] # Seg Neutrophils % Seg Neuts % (Manual) Lymphocytes % (Manual) Seg Neutrophils # Seg Neutrophils # Man Lymphocytes # (Manual) APTT POC ABG pH ABG pH POC ABG pCO2 POC ABG pO2 ABG pO2 ABG HCO3 ABG Base Excess ABG Hemoglobin VBG pH Oxyhemoglobin Sodium Potassium Chloride Carbon Dioxide BUN Creatinine Glucose POC Glucose 122 H 182 H 114 H Lactic Acid Calcium AST ALT Alkaline Phosphatase CK-MB (CK-2) CK-MB (CK-2) Rel Index Total Protein Albumin TSH Urine WBC (Auto) Salicylates 03/09/17 03/09/17 03/09/17 05:21 05:51 05:51 WBC RBC 3.61 L Hgb 9.5 L Hct 28.3 L MCV 79 L MCH 26 L RDW 17.8 H Plt Count Lymph % (Auto) [place] % (Auto) Eos % (Auto) [place] # Seg Neutrophils % Seg Neuts % (Manual) Lymphocytes % (Manual) Seg Neutrophils # Seg Neutrophils # Man Lymphocytes # (Manual) APTT POC ABG pH ABG pH POC ABG pCO2 POC ABG pO2 ABG pO2 ABG HCO3 ABG Base Excess ABG Hemoglobin VBG pH Oxyhemoglobin Sodium 134 L Potassium Chloride 95.5 L Carbon Dioxide BUN 33 H Creatinine 0.5 L Glucose 143 H POC Glucose 153 H Lactic Acid Calcium AST ALT Alkaline Phosphatase CK-MB (CK-2) CK-MB (CK-2) Rel Index Total Protein Albumin TSH Urine WBC (Auto) Salicylates 03/09/17 03/09/17 03/09/17 12:10 18:13 21:00 WBC RBC Hgb Hct MCV MCH RDW Plt Count Lymph % (Auto) [place] % (Auto) Eos % (Auto) [place] # Seg Neutrophils % Seg Neuts % (Manual) Lymphocytes % (Manual) Seg Neutrophils # Seg Neutrophils # Man Lymphocytes # (Manual) APTT POC ABG pH ABG pH POC ABG pCO2 POC ABG pO2 ABG pO2 ABG HCO3 ABG Base Excess ABG Hemoglobin VBG pH Oxyhemoglobin Sodium Potassium Chloride Carbon Dioxide BUN Creatinine Glucose POC Glucose 203 H 221 H 198 H Lactic Acid Calcium AST ALT Alkaline Phosphatase CK-MB (CK-2) CK-MB (CK-2) Rel Index Total Protein Albumin TSH Urine WBC (Auto) Salicylates 03/09/17 03/10/17 03/10/17 23:58 05:09 05:09 WBC RBC Hgb 10.3 L Hct 30.5 L MCV 78 L MCH 26 L RDW 17.9 H Plt Count Lymph % (Auto) [place] % (Auto) 10.0 H Eos % (Auto) 6.0 H [place] # Seg Neutrophils % Seg Neuts % (Manual) Lymphocytes % (Manual) Seg Neutrophils # Seg Neutrophils # Man Lymphocytes # (Manual) APTT POC ABG pH ABG pH POC ABG pCO2 POC ABG pO2 ABG pO2 ABG HCO3 ABG Base Excess ABG Hemoglobin VBG pH Oxyhemoglobin Sodium 132 L Potassium Chloride 92.2 L Carbon Dioxide BUN 33 H Creatinine 0.5 L Glucose 50 L POC Glucose 167 H Lactic Acid Calcium AST ALT Alkaline Phosphatase CK-MB (CK-2) CK-MB (CK-2) Rel Index Total Protein Albumin TSH Urine WBC (Auto) Salicylates 03/10/17 03/10/17 03/10/17 05:33 05:34 11:48 WBC RBC Hgb Hct MCV MCH RDW Plt Count Lymph % (Auto) [place] % (Auto) Eos % (Auto) [place] # Seg Neutrophils % Seg Neuts % (Manual) Lymphocytes % (Manual) Seg Neutrophils # Seg Neutrophils # Man Lymphocytes # (Manual) APTT POC ABG pH ABG pH POC ABG pCO2 POC ABG pO2 ABG pO2 ABG HCO3 ABG Base Excess ABG Hemoglobin VBG pH Oxyhemoglobin Sodium Potassium Chloride Carbon Dioxide BUN Creatinine Glucose POC Glucose 52 L 53 L 148 H Lactic Acid Calcium AST ALT Alkaline Phosphatase CK-MB (CK-2) CK-MB (CK-2) Rel Index Total Protein Albumin TSH Urine WBC (Auto) Salicylates 03/10/17 03/10/17 03/11/17 17:53 23:47 05:18 WBC RBC Hgb Hct MCV MCH RDW Plt Count Lymph % (Auto) [place] % (Auto) Eos % (Auto) [place] # Seg Neutrophils % Seg Neuts % (Manual) Lymphocytes % (Manual) Seg Neutrophils # Seg Neutrophils # Man Lymphocytes # (Manual) APTT POC ABG pH ABG pH POC ABG pCO2 POC ABG pO2 ABG pO2 ABG HCO3 ABG Base Excess ABG Hemoglobin VBG pH Oxyhemoglobin Sodium Potassium Chloride Carbon Dioxide BUN Creatinine Glucose POC Glucose 189 H 398 H 126 H Lactic Acid Calcium AST ALT Alkaline Phosphatase CK-MB (CK-2) CK-MB (CK-2) Rel Index Total Protein Albumin TSH Urine WBC (Auto) Salicylates 03/11/17 03/11/17 03/11/17 11:53 17:30 23:10 WBC RBC Hgb Hct MCV MCH RDW Plt Count Lymph % (Auto) [place] % (Auto) Eos % (Auto) [place] # Seg Neutrophils % Seg Neuts % (Manual) Lymphocytes % (Manual) Seg Neutrophils # Seg Neutrophils # Man Lymphocytes # (Manual) APTT POC ABG pH ABG pH POC ABG pCO2 POC ABG pO2 ABG pO2 ABG HCO3 ABG Base Excess ABG Hemoglobin VBG pH Oxyhemoglobin Sodium Potassium Chloride Carbon Dioxide BUN Creatinine Glucose POC Glucose 198 H 142 H 244 H Lactic Acid Calcium AST ALT Alkaline Phosphatase CK-MB (CK-2) CK-MB (CK-2) Rel Index Total Protein Albumin TSH Urine WBC (Auto) Salicylates 03/12/17 03/12/17 03/12/17 04:36 11:49 17:23 WBC RBC Hgb Hct MCV MCH RDW Plt Count Lymph % (Auto) [place] % (Auto) Eos % (Auto) [place] # Seg Neutrophils % Seg Neuts % (Manual) Lymphocytes % (Manual) Seg Neutrophils # Seg Neutrophils # Man Lymphocytes # (Manual) APTT POC ABG pH ABG pH POC ABG pCO2 POC ABG pO2 ABG pO2 ABG HCO3 ABG Base Excess ABG Hemoglobin VBG pH Oxyhemoglobin Sodium Potassium Chloride Carbon Dioxide BUN Creatinine Glucose POC Glucose 205 H 197 H 209 H Lactic Acid Calcium AST ALT Alkaline Phosphatase CK-MB (CK-2) CK-MB (CK-2) Rel Index Total Protein Albumin TSH Urine WBC (Auto) Salicylates 03/12/17 03/13/17 03/13/17 23:51 05:32 11:43 WBC RBC Hgb Hct MCV MCH RDW Plt Count Lymph % (Auto) [place] % (Auto) Eos % (Auto) [place] # Seg Neutrophils % Seg Neuts % (Manual) Lymphocytes % (Manual) Seg Neutrophils # Seg Neutrophils # Man Lymphocytes # (Manual) APTT POC ABG pH ABG pH POC ABG pCO2 POC ABG pO2 ABG pO2 ABG HCO3 ABG Base Excess ABG Hemoglobin VBG pH Oxyhemoglobin Sodium Potassium Chloride Carbon Dioxide BUN Creatinine Glucose POC Glucose 210 H 154 H 164 H Lactic Acid Calcium AST ALT Alkaline Phosphatase CK-MB (CK-2) CK-MB (CK-2) Rel Index Total Protein Albumin TSH Urine WBC (Auto) Salicylates 03/13/17 03/13/17 03/14/17 17:11 23:26 05:42 WBC RBC Hgb Hct MCV MCH RDW Plt Count Lymph % (Auto) [place] % (Auto) Eos % (Auto) [place] # Seg Neutrophils % Seg Neuts % (Manual) Lymphocytes % (Manual) Seg Neutrophils # Seg Neutrophils # Man Lymphocytes # (Manual) APTT POC ABG pH ABG pH POC ABG pCO2 POC ABG pO2 ABG pO2 ABG HCO3 ABG Base Excess ABG Hemoglobin VBG pH Oxyhemoglobin Sodium Potassium Chloride Carbon Dioxide BUN Creatinine Glucose POC Glucose 195 H 240 H 230 H Lactic Acid Calcium AST ALT Alkaline Phosphatase CK-MB (CK-2) CK-MB (CK-2) Rel Index Total Protein Albumin TSH Urine WBC (Auto) Salicylates 03/14/17 03/14/17 03/14/17 14:04 17:34 23:42 WBC RBC Hgb Hct MCV MCH RDW Plt Count Lymph % (Auto) [place] % (Auto) Eos % (Auto) [place] # Seg Neutrophils % Seg Neuts % (Manual) Lymphocytes % (Manual) Seg Neutrophils # Seg Neutrophils # Man Lymphocytes # (Manual) APTT POC ABG pH ABG pH POC ABG pCO2 POC ABG pO2 ABG pO2 ABG HCO3 ABG Base Excess ABG Hemoglobin VBG pH Oxyhemoglobin Sodium Potassium Chloride Carbon Dioxide BUN Creatinine Glucose POC Glucose 227 H 186 H 225 H Lactic Acid Calcium AST ALT Alkaline Phosphatase CK-MB (CK-2) CK-MB (CK-2) Rel Index Total Protein Albumin TSH Urine WBC (Auto) Salicylates 03/15/17 03/15/17 03/15/17 05:21 17:13 21:37 WBC RBC Hgb Hct MCV MCH RDW Plt Count Lymph % (Auto) [place] % (Auto) Eos % (Auto) [place] # Seg Neutrophils % Seg Neuts % (Manual) Lymphocytes % (Manual) Seg Neutrophils # Seg Neutrophils # Man Lymphocytes # (Manual) APTT POC ABG pH ABG pH POC ABG pCO2 POC ABG pO2 ABG pO2 ABG HCO3 ABG Base Excess ABG Hemoglobin VBG pH Oxyhemoglobin Sodium Potassium Chloride Carbon Dioxide BUN Creatinine Glucose POC Glucose 244 H 203 H 216 H Lactic Acid Calcium AST ALT Alkaline Phosphatase CK-MB (CK-2) CK-MB (CK-2) Rel Index Total Protein Albumin TSH Urine WBC (Auto) Salicylates 03/16/17 03/16/17 03/16/17 05:52 18:07 21:54 WBC RBC Hgb Hct MCV MCH RDW Plt Count Lymph % (Auto) [place] % (Auto) Eos % (Auto) [place] # Seg Neutrophils % Seg Neuts % (Manual) Lymphocytes % (Manual) Seg Neutrophils # Seg Neutrophils # Man Lymphocytes # (Manual) APTT POC ABG pH ABG pH POC ABG pCO2 POC ABG pO2 ABG pO2 ABG HCO3 ABG Base Excess ABG Hemoglobin VBG pH Oxyhemoglobin Sodium Potassium Chloride Carbon Dioxide BUN Creatinine Glucose POC Glucose 248 H 254 H 244 H Lactic Acid Calcium AST ALT Alkaline Phosphatase CK-MB (CK-2) CK-MB (CK-2) Rel Index Total Protein Albumin TSH Urine WBC (Auto) Salicylates 03/17/17 03/17/17 03/17/17 07:07 07:42 07:43 WBC RBC Hgb 9.7 L Hct 29.1 L MCV 78 L MCH 26 L RDW 17.4 H Plt Count Lymph % (Auto) [place] % (Auto) Eos % (Auto) [place] # Seg Neutrophils % Seg Neuts % (Manual) Lymphocytes % (Manual) Seg Neutrophils # Seg Neutrophils # Man Lymphocytes # (Manual) APTT POC ABG pH ABG pH POC ABG pCO2 POC ABG pO2 ABG pO2 ABG HCO3 ABG Base Excess ABG Hemoglobin VBG pH Oxyhemoglobin Sodium Potassium Chloride 96.6 L Carbon Dioxide BUN 30 H Creatinine 0.5 L Glucose 251 H POC Glucose 222 H Lactic Acid Calcium AST ALT Alkaline Phosphatase CK-MB (CK-2) CK-MB (CK-2) Rel Index Total Protein Albumin TSH Urine WBC (Auto) Salicylates 03/17/17 03/17/17 03/18/17 14:08 21:20 14:24 WBC RBC Hgb Hct MCV MCH RDW Plt Count Lymph % (Auto) [place] % (Auto) Eos % (Auto) [place] # Seg Neutrophils % Seg Neuts % (Manual) Lymphocytes % (Manual) Seg Neutrophils # Seg Neutrophils # Man Lymphocytes # (Manual) APTT POC ABG pH ABG pH POC ABG pCO2 POC ABG pO2 ABG pO2 ABG HCO3 ABG Base Excess ABG Hemoglobin VBG pH Oxyhemoglobin Sodium Potassium Chloride Carbon Dioxide BUN Creatinine Glucose POC Glucose 281 H 239 H 195 H Lactic Acid Calcium AST ALT Alkaline Phosphatase CK-MB (CK-2) CK-MB (CK-2) Rel Index Total Protein Albumin TSH Urine WBC (Auto) Salicylates 03/18/17 03/19/17 03/19/17 21:37 04:57 14:23 WBC RBC Hgb Hct MCV MCH RDW Plt Count Lymph % (Auto) [place] % (Auto) Eos % (Auto) [place] # Seg Neutrophils % Seg Neuts % (Manual) Lymphocytes % (Manual) Seg Neutrophils # Seg Neutrophils # Man Lymphocytes # (Manual) APTT POC ABG pH ABG pH POC ABG pCO2 POC ABG pO2 ABG pO2 ABG HCO3 ABG Base Excess ABG Hemoglobin VBG pH Oxyhemoglobin Sodium Potassium Chloride Carbon Dioxide BUN Creatinine Glucose POC Glucose 227 H 205 H 277 H Lactic Acid Calcium AST ALT Alkaline Phosphatase CK-MB (CK-2) CK-MB (CK-2) Rel Index Total Protein Albumin TSH Urine WBC (Auto) Salicylates 03/19/17 03/19/17 03/20/17 20:31 21:47 04:55 WBC RBC Hgb Hct MCV MCH RDW Plt Count Lymph % (Auto) [place] % (Auto) Eos % (Auto) [place] # Seg Neutrophils % Seg Neuts % (Manual) Lymphocytes % (Manual) Seg Neutrophils # Seg Neutrophils # Man Lymphocytes # (Manual) APTT POC ABG pH ABG pH POC ABG pCO2 POC ABG pO2 ABG pO2 ABG HCO3 ABG Base Excess ABG Hemoglobin VBG pH Oxyhemoglobin Sodium Potassium Chloride Carbon Dioxide BUN Creatinine Glucose POC Glucose 256 H 270 H 202 H Lactic Acid Calcium AST ALT Alkaline Phosphatase CK-MB (CK-2) CK-MB (CK-2) Rel Index Total Protein Albumin TSH Urine WBC (Auto) Salicylates 03/20/17 03/20/17 03/21/17 14:09 21:40 05:09 WBC RBC Hgb Hct MCV MCH RDW Plt Count Lymph % (Auto) [place] % (Auto) Eos % (Auto) [place] # Seg Neutrophils % Seg Neuts % (Manual) Lymphocytes % (Manual) Seg Neutrophils # Seg Neutrophils # Man Lymphocytes # (Manual) APTT POC ABG pH ABG pH POC ABG pCO2 POC ABG pO2 ABG pO2 ABG HCO3 ABG Base Excess ABG Hemoglobin VBG pH Oxyhemoglobin Sodium Potassium Chloride Carbon Dioxide BUN Creatinine Glucose POC Glucose 200 H 214 H 233 H Lactic Acid Calcium AST ALT Alkaline Phosphatase CK-MB (CK-2) CK-MB (CK-2) Rel Index Total Protein Albumin TSH Urine WBC (Auto) Salicylates 03/21/17 03/21/17 03/22/17 14:06 21:26 05:43 WBC RBC Hgb Hct MCV MCH RDW Plt Count Lymph % (Auto) [place] % (Auto) Eos % (Auto) [place] # Seg Neutrophils % Seg Neuts % (Manual) Lymphocytes % (Manual) Seg Neutrophils # Seg Neutrophils # Man Lymphocytes # (Manual) APTT POC ABG pH ABG pH POC ABG pCO2 POC ABG pO2 ABG pO2 ABG HCO3 ABG Base Excess ABG Hemoglobin VBG pH Oxyhemoglobin Sodium Potassium Chloride Carbon Dioxide BUN Creatinine Glucose POC Glucose 250 H 155 H 251 H Lactic Acid Calcium AST ALT Alkaline Phosphatase CK-MB (CK-2) CK-MB (CK-2) Rel Index Total Protein Albumin TSH Urine WBC (Auto) Salicylates 03/22/17 03/22/17 03/23/17 13:46 21:16 00:23 WBC RBC Hgb Hct MCV MCH RDW Plt Count Lymph % (Auto) [place] % (Auto) Eos % (Auto) [place] # Seg Neutrophils % Seg Neuts % (Manual) Lymphocytes % (Manual) Seg Neutrophils # Seg Neutrophils # Man Lymphocytes # (Manual) APTT POC ABG pH ABG pH POC ABG pCO2 POC ABG pO2 ABG pO2 ABG HCO3 ABG Base Excess ABG Hemoglobin VBG pH Oxyhemoglobin Sodium Potassium Chloride Carbon Dioxide BUN Creatinine Glucose POC Glucose 269 H 197 H 126 H Lactic Acid Calcium AST ALT Alkaline Phosphatase CK-MB (CK-2) CK-MB (CK-2) Rel Index Total Protein Albumin TSH Urine WBC (Auto) Salicylates 03/23/17 03/23/17 03/23/17 05:39 14:06 21:39 WBC RBC Hgb Hct MCV MCH RDW Plt Count Lymph % (Auto) [place] % (Auto) Eos % (Auto) [place] # Seg Neutrophils % Seg Neuts % (Manual) Lymphocytes % (Manual) Seg Neutrophils # Seg Neutrophils # Man Lymphocytes # (Manual) APTT POC ABG pH ABG pH POC ABG pCO2 POC ABG pO2 ABG pO2 ABG HCO3 ABG Base Excess ABG Hemoglobin VBG pH Oxyhemoglobin Sodium Potassium Chloride Carbon Dioxide BUN Creatinine Glucose POC Glucose 234 H 241 H 248 H Lactic Acid Calcium AST ALT Alkaline Phosphatase CK-MB (CK-2) CK-MB (CK-2) Rel Index Total Protein Albumin TSH Urine WBC (Auto) Salicylates 03/24/17 03/24/17 03/25/17 05:06 21:46 05:38 WBC RBC Hgb Hct MCV MCH RDW Plt Count Lymph % (Auto) [place] % (Auto) Eos % (Auto) [place] # Seg Neutrophils % Seg Neuts % (Manual) Lymphocytes % (Manual) Seg Neutrophils # Seg Neutrophils # Man Lymphocytes # (Manual) APTT POC ABG pH ABG pH POC ABG pCO2 POC ABG pO2 ABG pO2 ABG HCO3 ABG Base Excess ABG Hemoglobin VBG pH Oxyhemoglobin Sodium Potassium Chloride Carbon Dioxide BUN Creatinine Glucose POC Glucose 232 H 276 H 242 H Lactic Acid Calcium AST ALT Alkaline Phosphatase CK-MB (CK-2) CK-MB (CK-2) Rel Index Total Protein Albumin TSH Urine WBC (Auto) Salicylates 03/25/17 03/25/17 03/26/17 14:30 23:14 13:53 WBC RBC Hgb Hct MCV MCH RDW Plt Count Lymph % (Auto) [place] % (Auto) Eos % (Auto) [place] # Seg Neutrophils % Seg Neuts % (Manual) Lymphocytes % (Manual) Seg Neutrophils # Seg Neutrophils # Man Lymphocytes # (Manual) APTT POC ABG pH ABG pH POC ABG pCO2 POC ABG pO2 ABG pO2 ABG HCO3 ABG Base Excess ABG Hemoglobin VBG pH Oxyhemoglobin Sodium Potassium Chloride Carbon Dioxide BUN Creatinine Glucose POC Glucose 246 H 208 H 195 H Lactic Acid Calcium AST ALT Alkaline Phosphatase CK-MB (CK-2) CK-MB (CK-2) Rel Index Total Protein Albumin TSH Urine WBC (Auto) Salicylates 03/26/17 03/27/17 03/27/17 21:58 05:18 14:57 WBC RBC Hgb Hct MCV MCH RDW Plt Count Lymph % (Auto) [place] % (Auto) Eos % (Auto) [place] # Seg Neutrophils % Seg Neuts % (Manual) Lymphocytes % (Manual) Seg Neutrophils # Seg Neutrophils # Man Lymphocytes # (Manual) APTT POC ABG pH ABG pH POC ABG pCO2 POC ABG pO2 ABG pO2 ABG HCO3 ABG Base Excess ABG Hemoglobin VBG pH Oxyhemoglobin Sodium Potassium Chloride Carbon Dioxide BUN Creatinine Glucose POC Glucose 241 H 199 H 269 H Lactic Acid Calcium AST ALT Alkaline Phosphatase CK-MB (CK-2) CK-MB (CK-2) Rel Index Total Protein Albumin TSH Urine WBC (Auto) Salicylates 03/27/17 03/28/17 03/28/17 21:33 13:52 21:29 WBC RBC Hgb Hct MCV MCH RDW Plt Count Lymph % (Auto) [place] % (Auto) Eos % (Auto) [place] # Seg Neutrophils % Seg Neuts % (Manual) Lymphocytes % (Manual) Seg Neutrophils # Seg Neutrophils # Man Lymphocytes # (Manual) APTT POC ABG pH ABG pH POC ABG pCO2 POC ABG pO2 ABG pO2 ABG HCO3 ABG Base Excess ABG Hemoglobin VBG pH Oxyhemoglobin Sodium Potassium Chloride Carbon Dioxide BUN Creatinine Glucose POC Glucose 214 H 243 H 286 H Lactic Acid Calcium AST ALT Alkaline Phosphatase CK-MB (CK-2) CK-MB (CK-2) Rel Index Total Protein Albumin TSH Urine WBC (Auto) Salicylates 03/29/17 03/29/17 03/29/17 04:32 04:32 13:58 WBC RBC Hgb 10.6 L Hct 32.9 L MCV 78 L MCH 25 L RDW 17.6 H Plt Count Lymph % (Auto) 38.0 H [place] % (Auto) 9.7 H Eos % (Auto) [place] # Seg Neutrophils % Seg Neuts % (Manual) Lymphocytes % (Manual) Seg Neutrophils # Seg Neutrophils # Man Lymphocytes # (Manual) APTT POC ABG pH ABG pH POC ABG pCO2 POC ABG pO2 ABG pO2 ABG HCO3 ABG Base Excess ABG Hemoglobin VBG pH Oxyhemoglobin Sodium 132 L Potassium Chloride 94.0 L Carbon Dioxide BUN 28 H Creatinine 0.5 L Glucose 236 H POC Glucose 171 H Lactic Acid Calcium AST ALT 71 H Alkaline Phosphatase 391 H CK-MB (CK-2) CK-MB (CK-2) Rel Index Total Protein 8.3 H Albumin 2.9 L TSH Urine WBC (Auto) Salicylates 03/29/17 03/30/17 03/30/17 20:59 06:07 11:52 WBC RBC Hgb Hct MCV MCH RDW Plt Count Lymph % (Auto) [place] % (Auto) Eos % (Auto) [place] # Seg Neutrophils % Seg Neuts % (Manual) Lymphocytes % (Manual) Seg Neutrophils # Seg Neutrophils # Man Lymphocytes # (Manual) APTT POC ABG pH ABG pH POC ABG pCO2 POC ABG pO2 ABG pO2 ABG HCO3 ABG Base Excess ABG Hemoglobin VBG pH Oxyhemoglobin Sodium Potassium Chloride Carbon Dioxide BUN Creatinine Glucose POC Glucose 215 H 259 H 197 H Lactic Acid Calcium AST ALT Alkaline Phosphatase CK-MB (CK-2) CK-MB (CK-2) Rel Index Total Protein Albumin TSH Urine WBC (Auto) Salicylates 03/30/17 03/31/17 03/31/17 21:34 05:42 14:34 WBC RBC Hgb Hct MCV MCH RDW Plt Count Lymph % (Auto) [place] % (Auto) Eos % (Auto) [place] # Seg Neutrophils % Seg Neuts % (Manual) Lymphocytes % (Manual) Seg Neutrophils # Seg Neutrophils # Man Lymphocytes # (Manual) APTT POC ABG pH ABG pH POC ABG pCO2 POC ABG pO2 ABG pO2 ABG HCO3 ABG Base Excess ABG Hemoglobin VBG pH Oxyhemoglobin Sodium Potassium Chloride Carbon Dioxide BUN Creatinine Glucose POC Glucose 207 H 184 H 213 H Lactic Acid Calcium AST ALT Alkaline Phosphatase CK-MB (CK-2) CK-MB (CK-2) Rel Index Total Protein Albumin TSH Urine WBC (Auto) Salicylates 03/31/17 04/01/17 04/01/17 21:32 05:53 13:48 WBC RBC Hgb Hct MCV MCH RDW Plt Count Lymph % (Auto) [place] % (Auto) Eos % (Auto) [place] # Seg Neutrophils % Seg Neuts % (Manual) Lymphocytes % (Manual) Seg Neutrophils # Seg Neutrophils # Man Lymphocytes # (Manual) APTT POC ABG pH ABG pH POC ABG pCO2 POC ABG pO2 ABG pO2 ABG HCO3 ABG Base Excess ABG Hemoglobin VBG pH Oxyhemoglobin Sodium Potassium Chloride Carbon Dioxide BUN Creatinine Glucose POC Glucose 249 H 225 H 256 H Lactic Acid Calcium AST ALT Alkaline Phosphatase CK-MB (CK-2) CK-MB (CK-2) Rel Index Total Protein Albumin TSH Urine WBC (Auto) Salicylates 04/01/17 04/02/17 04/02/17 21:34 05:32 14:05 WBC RBC Hgb Hct MCV MCH RDW Plt Count Lymph % (Auto) [place] % (Auto) Eos % (Auto) [place] # Seg Neutrophils % Seg Neuts % (Manual) Lymphocytes % (Manual) Seg Neutrophils # Seg Neutrophils # Man Lymphocytes # (Manual) APTT POC ABG pH ABG pH POC ABG pCO2 POC ABG pO2 ABG pO2 ABG HCO3 ABG Base Excess ABG Hemoglobin VBG pH Oxyhemoglobin Sodium Potassium Chloride Carbon Dioxide BUN Creatinine Glucose POC Glucose 292 H 220 H 187 H Lactic Acid Calcium AST ALT Alkaline Phosphatase CK-MB (CK-2) CK-MB (CK-2) Rel Index Total Protein Albumin TSH Urine WBC (Auto) Salicylates 04/02/17 04/03/17 04/03/17 21:57 04:49 14:12 WBC RBC Hgb Hct MCV MCH RDW Plt Count Lymph % (Auto) [place] % (Auto) Eos % (Auto) [place] # Seg Neutrophils % Seg Neuts % (Manual) Lymphocytes % (Manual) Seg Neutrophils # Seg Neutrophils # Man Lymphocytes # (Manual) APTT POC ABG pH ABG pH POC ABG pCO2 POC ABG pO2 ABG pO2 ABG HCO3 ABG Base Excess ABG Hemoglobin VBG pH Oxyhemoglobin Sodium Potassium Chloride Carbon Dioxide BUN Creatinine Glucose POC Glucose 285 H 256 H 197 H Lactic Acid Calcium AST ALT Alkaline Phosphatase CK-MB (CK-2) CK-MB (CK-2) Rel Index Total Protein Albumin TSH Urine WBC (Auto) Salicylates 04/03/17 04/04/17 04/04/17 21:11 05:20 13:18 WBC RBC Hgb Hct MCV MCH RDW Plt Count Lymph % (Auto) [place] % (Auto) Eos % (Auto) [place] # Seg Neutrophils % Seg Neuts % (Manual) Lymphocytes % (Manual) Seg Neutrophils # Seg Neutrophils # Man Lymphocytes # (Manual) APTT POC ABG pH ABG pH POC ABG pCO2 POC ABG pO2 ABG pO2 ABG HCO3 ABG Base Excess ABG Hemoglobin VBG pH Oxyhemoglobin Sodium Potassium Chloride Carbon Dioxide BUN Creatinine Glucose POC Glucose 166 H 228 H 252 H Lactic Acid Calcium AST ALT Alkaline Phosphatase CK-MB (CK-2) CK-MB (CK-2) Rel Index Total Protein Albumin TSH Urine WBC (Auto) Salicylates 04/04/17 04/05/17 04/05/17 21:51 06:14 09:54 WBC RBC Hgb Hct MCV MCH RDW Plt Count Lymph % (Auto) [place] % (Auto) Eos % (Auto) [place] # Seg Neutrophils % Seg Neuts % (Manual) Lymphocytes % (Manual) Seg Neutrophils # Seg Neutrophils # Man Lymphocytes # (Manual) APTT POC ABG pH ABG pH POC ABG pCO2 POC ABG pO2 ABG pO2 ABG HCO3 ABG Base Excess ABG Hemoglobin VBG pH Oxyhemoglobin Sodium Potassium Chloride Carbon Dioxide BUN Creatinine Glucose POC Glucose 252 H 152 H 181 H Lactic Acid Calcium AST ALT Alkaline Phosphatase CK-MB (CK-2) CK-MB (CK-2) Rel Index Total Protein Albumin TSH Urine WBC (Auto) Salicylates 04/05/17 04/05/17 04/05/17 14:49 17:34 21:38 WBC RBC Hgb Hct MCV MCH RDW Plt Count Lymph % (Auto) [place] % (Auto) Eos % (Auto) [place] # Seg Neutrophils % Seg Neuts % (Manual) Lymphocytes % (Manual) Seg Neutrophils # Seg Neutrophils # Man Lymphocytes # (Manual) APTT POC ABG pH ABG pH POC ABG pCO2 POC ABG pO2 ABG pO2 ABG HCO3 ABG Base Excess ABG Hemoglobin VBG pH Oxyhemoglobin Sodium Potassium Chloride Carbon Dioxide BUN Creatinine Glucose POC Glucose 219 H 268 H 278 H Lactic Acid Calcium AST ALT Alkaline Phosphatase CK-MB (CK-2) CK-MB (CK-2) Rel Index Total Protein Albumin TSH Urine WBC (Auto) Salicylates 04/06/17 04/06/17 04/07/17 15:04 22:14 05:09 WBC RBC Hgb Hct MCV MCH RDW Plt Count Lymph % (Auto) [place] % (Auto) Eos % (Auto) [place] # Seg Neutrophils % Seg Neuts % (Manual) Lymphocytes % (Manual) Seg Neutrophils # Seg Neutrophils # Man Lymphocytes # (Manual) APTT POC ABG pH ABG pH POC ABG pCO2 POC ABG pO2 ABG pO2 ABG HCO3 ABG Base Excess ABG Hemoglobin VBG pH Oxyhemoglobin Sodium Potassium Chloride Carbon Dioxide BUN Creatinine Glucose POC Glucose 285 H 106 H 334 H Lactic Acid Calcium AST ALT Alkaline Phosphatase CK-MB (CK-2) CK-MB (CK-2) Rel Index Total Protein Albumin TSH Urine WBC (Auto) Salicylates 04/07/17 04/07/17 04/08/17 14:45 21:48 05:28 WBC RBC Hgb Hct MCV MCH RDW Plt Count Lymph % (Auto) [place] % (Auto) Eos % (Auto) [place] # Seg Neutrophils % Seg Neuts % (Manual) Lymphocytes % (Manual) Seg Neutrophils # Seg Neutrophils # Man Lymphocytes # (Manual) APTT POC ABG pH ABG pH POC ABG pCO2 POC ABG pO2 ABG pO2 ABG HCO3 ABG Base Excess ABG Hemoglobin VBG pH Oxyhemoglobin Sodium Potassium Chloride Carbon Dioxide BUN Creatinine Glucose POC Glucose 173 H 304 H 314 H Lactic Acid Calcium AST ALT Alkaline Phosphatase CK-MB (CK-2) CK-MB (CK-2) Rel Index Total Protein Albumin TSH Urine WBC (Auto) Salicylates 04/08/17 04/08/17 04/08/17 15:57 16:17 22:21 WBC RBC Hgb Hct MCV MCH RDW Plt Count Lymph % (Auto) [place] % (Auto) Eos % (Auto) [place] # Seg Neutrophils % Seg Neuts % (Manual) Lymphocytes % (Manual) Seg Neutrophils # Seg Neutrophils # Man Lymphocytes # (Manual) APTT POC ABG pH ABG pH POC ABG pCO2 POC ABG pO2 ABG pO2 ABG HCO3 ABG Base Excess ABG Hemoglobin VBG pH Oxyhemoglobin Sodium Potassium Chloride Carbon Dioxide BUN Creatinine Glucose POC Glucose 356 H 337 H 323 H Lactic Acid Calcium AST ALT Alkaline Phosphatase CK-MB (CK-2) CK-MB (CK-2) Rel Index Total Protein Albumin TSH Urine WBC (Auto) Salicylates 04/09/17 04/09/17 04/09/17 06:19 15:30 21:52 WBC RBC Hgb Hct MCV MCH RDW Plt Count Lymph % (Auto) [place] % (Auto) Eos % (Auto) [place] # Seg Neutrophils % Seg Neuts % (Manual) Lymphocytes % (Manual) Seg Neutrophils # Seg Neutrophils # Man Lymphocytes # (Manual) APTT POC ABG pH ABG pH POC ABG pCO2 POC ABG pO2 ABG pO2 ABG HCO3 ABG Base Excess ABG Hemoglobin VBG pH Oxyhemoglobin Sodium Potassium Chloride Carbon Dioxide BUN Creatinine Glucose POC Glucose 340 H 332 H 341 H Lactic Acid Calcium AST ALT Alkaline Phosphatase CK-MB (CK-2) CK-MB (CK-2) Rel Index Total Protein Albumin TSH Urine WBC (Auto) Salicylates 04/10/17 04/10/17 04/10/17 01:53 05:33 17:40 WBC RBC Hgb Hct MCV MCH RDW Plt Count Lymph % (Auto) [place] % (Auto) Eos % (Auto) [place] # Seg Neutrophils % Seg Neuts % (Manual) Lymphocytes % (Manual) Seg Neutrophils # Seg Neutrophils # Man Lymphocytes # (Manual) APTT POC ABG pH ABG pH POC ABG pCO2 POC ABG pO2 ABG pO2 ABG HCO3 ABG Base Excess ABG Hemoglobin VBG pH Oxyhemoglobin Sodium Potassium Chloride Carbon Dioxide BUN Creatinine Glucose POC Glucose 261 H 277 H 304 H Lactic Acid Calcium AST ALT Alkaline Phosphatase CK-MB (CK-2) CK-MB (CK-2) Rel Index Total Protein Albumin TSH Urine WBC (Auto) Salicylates 04/10/17 04/11/17 04/11/17 21:29 05:28 14:02 WBC RBC Hgb Hct MCV MCH RDW Plt Count Lymph % (Auto) [place] % (Auto) Eos % (Auto) [place] # Seg Neutrophils % Seg Neuts % (Manual) Lymphocytes % (Manual) Seg Neutrophils # Seg Neutrophils # Man Lymphocytes # (Manual) APTT POC ABG pH ABG pH POC ABG pCO2 POC ABG pO2 ABG pO2 ABG HCO3 ABG Base Excess ABG Hemoglobin VBG pH Oxyhemoglobin Sodium Potassium Chloride Carbon Dioxide BUN Creatinine Glucose POC Glucose 361 H 204 H 236 H Lactic Acid Calcium AST ALT Alkaline Phosphatase CK-MB (CK-2) CK-MB (CK-2) Rel Index Total Protein Albumin TSH Urine WBC (Auto) Salicylates 04/11/17 04/12/17 04/12/17 21:43 05:00 11:53 WBC RBC Hgb Hct MCV MCH RDW Plt Count Lymph % (Auto) [place] % (Auto) Eos % (Auto) [place] # Seg Neutrophils % Seg Neuts % (Manual) Lymphocytes % (Manual) Seg Neutrophils # Seg Neutrophils # Man Lymphocytes # (Manual) APTT POC ABG pH ABG pH POC ABG pCO2 POC ABG pO2 ABG pO2 ABG HCO3 ABG Base Excess ABG Hemoglobin VBG pH Oxyhemoglobin Sodium Potassium Chloride Carbon Dioxide BUN Creatinine Glucose POC Glucose 287 H 294 H 265 H Lactic Acid Calcium AST ALT Alkaline Phosphatase CK-MB (CK-2) CK-MB (CK-2) Rel Index Total Protein Albumin TSH Urine WBC (Auto) Salicylates 04/12/17 04/12/17 04/13/17 21:21 23:44 06:05 WBC RBC Hgb Hct MCV MCH RDW Plt Count Lymph % (Auto) [place] % (Auto) Eos % (Auto) [place] # Seg Neutrophils % Seg Neuts % (Manual) Lymphocytes % (Manual) Seg Neutrophils # Seg Neutrophils # Man Lymphocytes # (Manual) APTT POC ABG pH ABG pH POC ABG pCO2 POC ABG pO2 ABG pO2 ABG HCO3 ABG Base Excess ABG Hemoglobin VBG pH Oxyhemoglobin Sodium Potassium Chloride Carbon Dioxide BUN Creatinine Glucose POC Glucose 289 H 348 H 326 H Lactic Acid Calcium AST ALT Alkaline Phosphatase CK-MB (CK-2) CK-MB (CK-2) Rel Index Total Protein Albumin TSH Urine WBC (Auto) Salicylates 04/13/17 04/13/17 04/14/17 13:54 21:15 05:49 WBC RBC Hgb Hct MCV MCH RDW Plt Count Lymph % (Auto) [place] % (Auto) Eos % (Auto) [place] # Seg Neutrophils % Seg Neuts % (Manual) Lymphocytes % (Manual) Seg Neutrophils # Seg Neutrophils # Man Lymphocytes # (Manual) APTT POC ABG pH ABG pH POC ABG pCO2 POC ABG pO2 ABG pO2 ABG HCO3 ABG Base Excess ABG Hemoglobin VBG pH Oxyhemoglobin Sodium Potassium Chloride Carbon Dioxide BUN Creatinine Glucose POC Glucose 326 H 263 H 319 H Lactic Acid Calcium AST ALT Alkaline Phosphatase CK-MB (CK-2) CK-MB (CK-2) Rel Index Total Protein Albumin TSH Urine WBC (Auto) Salicylates 04/14/17 04/14/1704/15/18 13:26 23:13 14:24 WBC RBC Hgb Hct MCV MCH RDW Plt Count Lymph % (Auto) [place] % (Auto) Eos % (Auto) [place] # Seg Neutrophils % Seg Neuts % (Manual) Lymphocytes % (Manual) Seg Neutrophils # Seg Neutrophils # Man Lymphocytes # (Manual) APTT POC ABG pH ABG pH POC ABG pCO2 POC ABG pO2 ABG pO2 ABG HCO3 ABG Base Excess ABG Hemoglobin VBG pH Oxyhemoglobin Sodium Potassium Chloride Carbon Dioxide BUN Creatinine Glucose POC Glucose 207 H 365 H 308 H Lactic Acid Calcium AST ALT Alkaline Phosphatase CK-MB (CK-2) CK-MB (CK-2) Rel Index Total Protein Albumin TSH Urine WBC (Auto) Salicylates 04/15/17 04/15/17 04/15/17 21:00 22:18 23:12 WBC RBC Hgb Hct MCV MCH RDW Plt Count Lymph % (Auto) [place] % (Auto) Eos % (Auto) [place] # Seg Neutrophils % Seg Neuts % (Manual) Lymphocytes % (Manual) Seg Neutrophils # Seg Neutrophils # Man Lymphocytes # (Manual) APTT POC ABG pH ABG pH POC ABG pCO2 POC ABG pO2 ABG pO2 ABG HCO3 ABG Base Excess ABG Hemoglobin VBG pH Oxyhemoglobin Sodium Potassium Chloride Carbon Dioxide BUN Creatinine Glucose POC Glucose 407 H 287 H 325 H Lactic Acid Calcium AST ALT Alkaline Phosphatase CK-MB (CK-2) CK-MB (CK-2) Rel Index Total Protein Albumin TSH Urine WBC (Auto) Salicylates 04/16/17 04/16/17 04/16/17 05:30 10:07 14:26 WBC RBC Hgb Hct MCV MCH RDW Plt Count Lymph % (Auto) [place] % (Auto) Eos % (Auto) [place] # Seg Neutrophils % Seg Neuts % (Manual) Lymphocytes % (Manual) Seg Neutrophils # Seg Neutrophils # Man Lymphocytes # (Manual) APTT POC ABG pH ABG pH POC ABG pCO2 POC ABG pO2 ABG pO2 ABG HCO3 ABG Base Excess ABG Hemoglobin VBG pH Oxyhemoglobin Sodium Potassium Chloride Carbon Dioxide BUN Creatinine Glucose POC Glucose 304 H 217 H 344 H Lactic Acid Calcium AST ALT Alkaline Phosphatase CK-MB (CK-2) CK-MB (CK-2) Rel Index Total Protein Albumin TSH Urine WBC (Auto) Salicylates 04/16/17 04/17/17 04/17/17 21:25 05:12 14:19 WBC RBC Hgb Hct MCV MCH RDW Plt Count Lymph % (Auto) [place] % (Auto) Eos % (Auto) [place] # Seg Neutrophils % Seg Neuts % (Manual) Lymphocytes % (Manual) Seg Neutrophils # Seg Neutrophils # Man Lymphocytes # (Manual) APTT POC ABG pH ABG pH POC ABG pCO2 POC ABG pO2 ABG pO2 ABG HCO3 ABG Base Excess ABG Hemoglobin VBG pH Oxyhemoglobin Sodium Potassium Chloride Carbon Dioxide BUN Creatinine Glucose POC Glucose 305 H 233 H 324 H Lactic Acid Calcium AST ALT Alkaline Phosphatase CK-MB (CK-2) CK-MB (CK-2) Rel Index Total Protein Albumin TSH Urine WBC (Auto) Salicylates 04/17/17 04/18/17 04/18/17 21:42 06:21 14:08 WBC RBC Hgb Hct MCV MCH RDW Plt Count Lymph % (Auto) [place] % (Auto) Eos % (Auto) [place] # Seg Neutrophils % Seg Neuts % (Manual) Lymphocytes % (Manual) Seg Neutrophils # Seg Neutrophils # Man Lymphocytes # (Manual) APTT POC ABG pH ABG pH POC ABG pCO2 POC ABG pO2 ABG pO2 ABG HCO3 ABG Base Excess ABG Hemoglobin VBG pH Oxyhemoglobin Sodium Potassium Chloride Carbon Dioxide BUN Creatinine Glucose POC Glucose 270 H 308 H 290 H Lactic Acid Calcium AST ALT Alkaline Phosphatase CK-MB (CK-2) CK-MB (CK-2) Rel Index Total Protein Albumin TSH Urine WBC (Auto) Salicylates 04/18/17 04/19/17 04/19/17 21:50 05:20 13:59 WBC RBC Hgb Hct MCV MCH RDW Plt Count Lymph % (Auto) [place] % (Auto) Eos % (Auto) [place] # Seg Neutrophils % Seg Neuts % (Manual) Lymphocytes % (Manual) Seg Neutrophils # Seg Neutrophils # Man Lymphocytes # (Manual) APTT POC ABG pH ABG pH POC ABG pCO2 POC ABG pO2 ABG pO2 ABG HCO3 ABG Base Excess ABG Hemoglobin VBG pH Oxyhemoglobin Sodium Potassium Chloride Carbon Dioxide BUN Creatinine Glucose POC Glucose 167 H 372 H 321 H Lactic Acid Calcium AST ALT Alkaline Phosphatase CK-MB (CK-2) CK-MB (CK-2) Rel Index Total Protein Albumin TSH Urine WBC (Auto) Salicylates 04/19/17 04/20/17 04/20/17 21:16 14:18 21:34 WBC RBC Hgb Hct MCV MCH RDW Plt Count Lymph % (Auto) [place] % (Auto) Eos % (Auto) [place] # Seg Neutrophils % Seg Neuts % (Manual) Lymphocytes % (Manual) Seg Neutrophils # Seg Neutrophils # Man Lymphocytes # (Manual) APTT POC ABG pH ABG pH POC ABG pCO2 POC ABG pO2 ABG pO2 ABG HCO3 ABG Base Excess ABG Hemoglobin VBG pH Oxyhemoglobin Sodium Potassium Chloride Carbon Dioxide BUN Creatinine Glucose POC Glucose 182 H 218 H 121 H Lactic Acid Calcium AST ALT Alkaline Phosphatase CK-MB (CK-2) CK-MB (CK-2) Rel Index Total Protein Albumin TSH Urine WBC (Auto) Salicylates 04/21/17 04/21/17 04/21/17 00:08 05:16 12:41 WBC RBC Hgb Hct MCV MCH RDW Plt Count Lymph % (Auto) [place] % (Auto) Eos % (Auto) [place] # Seg Neutrophils % Seg Neuts % (Manual) Lymphocytes % (Manual) Seg Neutrophils # Seg Neutrophils # Man Lymphocytes # (Manual) APTT POC ABG pH ABG pH POC ABG pCO2 POC ABG pO2 ABG pO2 ABG HCO3 ABG Base Excess ABG Hemoglobin VBG pH Oxyhemoglobin Sodium Potassium Chloride Carbon Dioxide BUN Creatinine Glucose POC Glucose 128 H 120 H 216 H Lactic Acid Calcium AST ALT Alkaline Phosphatase CK-MB (CK-2) CK-MB (CK-2) Rel Index Total Protein Albumin TSH Urine WBC (Auto) Salicylates 04/21/17 04/22/17 04/22/17 23:40 14:12 23:38 WBC RBC Hgb Hct MCV MCH RDW Plt Count Lymph % (Auto) [place] % (Auto) Eos % (Auto) [place] # Seg Neutrophils % Seg Neuts % (Manual) Lymphocytes % (Manual) Seg Neutrophils # Seg Neutrophils # Man Lymphocytes # (Manual) APTT POC ABG pH ABG pH POC ABG pCO2 POC ABG pO2 ABG pO2 ABG HCO3 ABG Base Excess ABG Hemoglobin VBG pH Oxyhemoglobin Sodium Potassium Chloride Carbon Dioxide BUN Creatinine Glucose POC Glucose 157 H 242 H 117 H Lactic Acid Calcium AST ALT Alkaline Phosphatase CK-MB (CK-2) CK-MB (CK-2) Rel Index Total Protein Albumin TSH Urine WBC (Auto) Salicylates 04/23/17 04/23/17 04/24/17 05:18 14:01 03:24 WBC RBC Hgb Hct MCV MCH RDW Plt Count Lymph % (Auto) [place] % (Auto) Eos % (Auto) [place] # Seg Neutrophils % Seg Neuts % (Manual) Lymphocytes % (Manual) Seg Neutrophils # Seg Neutrophils # Man Lymphocytes # (Manual) APTT POC ABG pH ABG pH POC ABG pCO2 POC ABG pO2 ABG pO2 ABG HCO3 ABG Base Excess ABG Hemoglobin VBG pH Oxyhemoglobin Sodium Potassium Chloride Carbon Dioxide BUN Creatinine Glucose POC Glucose 163 H 57 L 177 H Lactic Acid Calcium AST ALT Alkaline Phosphatase CK-MB (CK-2) CK-MB (CK-2) Rel Index Total Protein Albumin TSH Urine WBC (Auto) Salicylates 04/24/17 04/24/17 04/24/17 04:00 04:00 06:33 WBC RBC Hgb 9.9 L Hct 30.0 L MCV 79 L MCH 26 L RDW 17.1 H Plt Count 625 H Lymph % (Auto) [place] % (Auto) 8.4 H Eos % (Auto) [place] # Seg Neutrophils % Seg Neuts % (Manual) Lymphocytes % (Manual) Seg Neutrophils # Seg Neutrophils # Man Lymphocytes # (Manual) APTT POC ABG pH ABG pH POC ABG pCO2 POC ABG pO2 ABG pO2 ABG HCO3 ABG Base Excess ABG Hemoglobin VBG pH Oxyhemoglobin Sodium 136 L Potassium Chloride 94.9 L Carbon Dioxide BUN 40 H Creatinine 0.6 L Glucose 176 H POC Glucose 230 H Lactic Acid Calcium AST 67 H ALT Alkaline Phosphatase 294 H CK-MB (CK-2) CK-MB (CK-2) Rel Index Total Protein 9.0 H Albumin 2.5 L TSH Urine WBC (Auto) Salicylates 04/24/17 04/25/17 04/25/17 13:50 00:22 02:55 WBC RBC 3.54 L Hgb 9.0 L Hct 27.9 L MCV 79 L MCH 26 L RDW 17.5 H Plt Count 574 H Lymph % (Auto) [place] % (Auto) 10.4 H Eos % (Auto) [place] # 1.0 H Seg Neutrophils % Seg Neuts % (Manual) Lymphocytes % (Manual) Seg Neutrophils # Seg Neutrophils # Man Lymphocytes # (Manual) APTT POC ABG pH ABG pH POC ABG pCO2 POC ABG pO2 ABG pO2 ABG HCO3 ABG Base Excess ABG Hemoglobin VBG pH Oxyhemoglobin Sodium Potassium Chloride Carbon Dioxide BUN Creatinine Glucose POC Glucose 116 H < 40 L Lactic Acid Calcium AST ALT Alkaline Phosphatase CK-MB (CK-2) CK-MB (CK-2) Rel Index Total Protein Albumin TSH Urine WBC (Auto) Salicylates 04/25/17 04/25/17 04/25/17 02:55 11:15 18:36 WBC RBC Hgb Hct MCV MCH RDW Plt Count Lymph % (Auto) [place] % (Auto) Eos % (Auto) [place] # Seg Neutrophils % Seg Neuts % (Manual) Lymphocytes % (Manual) Seg Neutrophils # Seg Neutrophils # Man Lymphocytes # (Manual) APTT POC ABG pH ABG pH POC ABG pCO2 POC ABG pO2 ABG pO2 ABG HCO3 ABG Base Excess ABG Hemoglobin VBG pH Oxyhemoglobin Sodium Potassium Chloride 96.2 L Carbon Dioxide BUN 39 H Creatinine 0.7 L Glucose 125 H POC Glucose 227 H 280 H Lactic Acid Calcium AST ALT Alkaline Phosphatase 247 H CK-MB (CK-2) CK-MB (CK-2) Rel Index Total Protein Albumin 2.7 L TSH Urine WBC (Auto) Salicylates 04/25/17 04/26/17 04/26/17 21:49 06:53 07:27 WBC RBC 3.61 L Hgb 9.1 L Hct 28.1 L MCV 78 L MCH 25 L RDW 17.4 H Plt Count 594 H Lymph % (Auto) [place] % (Auto) 9.2 H Eos % (Auto) [place] # 1.0 H Seg Neutrophils % 70.6 H Seg Neuts % (Manual) Lymphocytes % (Manual) Seg Neutrophils # Seg Neutrophils # Man Lymphocytes # (Manual) APTT POC ABG pH ABG pH POC ABG pCO2 POC ABG pO2 ABG pO2 ABG HCO3 ABG Base Excess ABG Hemoglobin VBG pH Oxyhemoglobin Sodium Potassium Chloride Carbon Dioxide BUN Creatinine Glucose POC Glucose 192 H 60 L Lactic Acid Calcium AST ALT Alkaline Phosphatase CK-MB (CK-2) CK-MB (CK-2) Rel Index Total Protein Albumin TSH Urine WBC (Auto) Salicylates 04/26/17 04/26/17 04/26/17 07:27 07:28 13:32 WBC RBC Hgb Hct MCV MCH RDW Plt Count Lymph % (Auto) [place] % (Auto) Eos % (Auto) [place] # Seg Neutrophils % Seg Neuts % (Manual) Lymphocytes % (Manual) Seg Neutrophils # Seg Neutrophils # Man Lymphocytes # (Manual) APTT POC ABG pH ABG pH POC ABG pCO2 POC ABG pO2 ABG pO2 ABG HCO3 ABG Base Excess ABG Hemoglobin VBG pH Oxyhemoglobin Sodium Potassium Chloride 95.0 L Carbon Dioxide BUN 42 H Creatinine 0.7 L Glucose 172 H POC Glucose 190 H 168 H Lactic Acid Calcium AST 56 H ALT Alkaline Phosphatase 274 H CK-MB (CK-2) CK-MB (CK-2) Rel Index Total Protein 8.9 H Albumin 2.7 L TSH Urine WBC (Auto) Salicylates 04/26/17 04/27/17 04/27/17 23:36 05:10 05:10 WBC RBC 3.49 L Hgb 8.7 L Hct 27.0 L MCV 77 L MCH 25 L RDW 17.4 H Plt Count 558 H Lymph % (Auto) [place] % (Auto) 9.6 H Eos % (Auto) [place] # Seg Neutrophils % Seg Neuts % (Manual) Lymphocytes % (Manual) Seg Neutrophils # Seg Neutrophils # Man Lymphocytes # (Manual) APTT POC ABG pH ABG pH POC ABG pCO2 POC ABG pO2 ABG pO2 ABG HCO3 ABG Base Excess ABG Hemoglobin VBG pH Oxyhemoglobin Sodium 133 L Potassium Chloride 93.5 L Carbon Dioxide BUN 40 H Creatinine 0.7 L Glucose 179 H POC Glucose 204 H Lactic Acid Calcium AST 73 H ALT 58 H Alkaline Phosphatase 294 H CK-MB (CK-2) CK-MB (CK-2) Rel Index Total Protein 8.7 H Albumin 2.4 L TSH Urine WBC (Auto) Salicylates 04/27/17 04/27/17 04/27/17 05:45 14:08 23:46 WBC RBC Hgb Hct MCV MCH RDW Plt Count Lymph % (Auto) [place] % (Auto) Eos % (Auto) [place] # Seg Neutrophils % Seg Neuts % (Manual) Lymphocytes % (Manual) Seg Neutrophils # Seg Neutrophils # Man Lymphocytes # (Manual) APTT POC ABG pH ABG pH POC ABG pCO2 POC ABG pO2 ABG pO2 ABG HCO3 ABG Base Excess ABG Hemoglobin VBG pH Oxyhemoglobin Sodium Potassium Chloride Carbon Dioxide BUN Creatinine Glucose POC Glucose 200 H 206 H 207 H Lactic Acid Calcium AST ALT Alkaline Phosphatase CK-MB (CK-2) CK-MB (CK-2) Rel Index Total Protein Albumin TSH Urine WBC (Auto) Salicylates 04/28/17 04/28/17 04/28/17 04:48 04:53 05:10 WBC RBC 3.48 L Hgb 8.8 L Hct 26.7 L MCV 77 L MCH 25 L RDW 17.0 H Plt Count 515 H Lymph % (Auto) [place] % (Auto) 8.4 H Eos % (Auto) [place] # Seg Neutrophils % 70.6 H Seg Neuts % (Manual) Lymphocytes % (Manual) Seg Neutrophils # Seg Neutrophils # Man Lymphocytes # (Manual) APTT POC ABG pH ABG pH POC ABG pCO2 POC ABG pO2 ABG pO2 ABG HCO3 ABG Base Excess ABG Hemoglobin VBG pH Oxyhemoglobin Sodium Potassium Chloride Carbon Dioxide BUN Creatinine Glucose POC Glucose 43 L 41 L Lactic Acid Calcium AST ALT Alkaline Phosphatase CK-MB (CK-2) CK-MB (CK-2) Rel Index Total Protein Albumin TSH Urine WBC (Auto) Salicylates 04/28/17 04/28/17 04/28/17 05:10 14:06 22:07 WBC RBC Hgb Hct MCV MCH RDW Plt Count Lymph % (Auto) [place] % (Auto) Eos % (Auto) [place] # Seg Neutrophils % Seg Neuts % (Manual) Lymphocytes % (Manual) Seg Neutrophils # Seg Neutrophils # Man Lymphocytes # (Manual) APTT POC ABG pH ABG pH POC ABG pCO2 POC ABG pO2 ABG pO2 ABG HCO3 ABG Base Excess ABG Hemoglobin VBG pH Oxyhemoglobin Sodium 136 L Potassium Chloride 95.2 L Carbon Dioxide BUN 42 H Creatinine Glucose 63 L POC Glucose 303 H 227 H Lactic Acid Calcium AST 45 H ALT Alkaline Phosphatase 271 H CK-MB (CK-2) CK-MB (CK-2) Rel Index Total Protein 8.9 H Albumin 2.5 L TSH Urine WBC (Auto) Salicylates 04/29/17 04/29/17 04/29/17 06:40 14:11 21:35 WBC RBC Hgb Hct MCV MCH RDW Plt Count Lymph % (Auto) [place] % (Auto) Eos % (Auto) [place] # Seg Neutrophils % Seg Neuts % (Manual) Lymphocytes % (Manual) Seg Neutrophils # Seg Neutrophils # Man Lymphocytes # (Manual) APTT POC ABG pH ABG pH POC ABG pCO2 POC ABG pO2 ABG pO2 ABG HCO3 ABG Base Excess ABG Hemoglobin VBG pH Oxyhemoglobin Sodium Potassium Chloride Carbon Dioxide BUN Creatinine Glucose POC Glucose 254 H 244 H 184 H Lactic Acid Calcium AST ALT Alkaline Phosphatase CK-MB (CK-2) CK-MB (CK-2) Rel Index Total Protein Albumin TSH Urine WBC (Auto) Salicylates 04/30/17 04/30/17 04/30/17 05:17 14:03 22:08 WBC RBC Hgb Hct MCV MCH RDW Plt Count Lymph % (Auto) [place] % (Auto) Eos % (Auto) [place] # Seg Neutrophils % Seg Neuts % (Manual) Lymphocytes % (Manual) Seg Neutrophils # Seg Neutrophils # Man Lymphocytes # (Manual) APTT POC ABG pH ABG pH POC ABG pCO2 POC ABG pO2 ABG pO2 ABG HCO3 ABG Base Excess ABG Hemoglobin VBG pH Oxyhemoglobin Sodium Potassium Chloride Carbon Dioxide BUN Creatinine Glucose POC Glucose 173 H 182 H 247 H Lactic Acid Calcium AST ALT Alkaline Phosphatase CK-MB (CK-2) CK-MB (CK-2) Rel Index Total Protein Albumin TSH Urine WBC (Auto) Salicylates 05/01/17 05/01/17 05/01/17 05:04 15:37 18:50 WBC RBC Hgb Hct MCV MCH RDW Plt Count Lymph % (Auto) [place] % (Auto) Eos % (Auto) [place] # Seg Neutrophils % Seg Neuts % (Manual) Lymphocytes % (Manual) Seg Neutrophils # Seg Neutrophils # Man Lymphocytes # (Manual) APTT POC ABG pH ABG pH POC ABG pCO2 POC ABG pO2 ABG pO2 ABG HCO3 ABG Base Excess ABG Hemoglobin VBG pH Oxyhemoglobin Sodium Potassium Chloride Carbon Dioxide BUN Creatinine Glucose POC Glucose 335 H 68 L 144 H Lactic Acid Calcium AST ALT Alkaline Phosphatase CK-MB (CK-2) CK-MB (CK-2) Rel Index Total Protein Albumin TSH Urine WBC (Auto) Salicylates 05/01/17 05/02/17 05/02/17 22:13 04:59 14:06 WBC RBC Hgb Hct MCV MCH RDW Plt Count Lymph % (Auto) [place] % (Auto) Eos % (Auto) [place] # Seg Neutrophils % Seg Neuts % (Manual) Lymphocytes % (Manual) Seg Neutrophils # Seg Neutrophils # Man Lymphocytes # (Manual) APTT POC ABG pH ABG pH POC ABG pCO2 POC ABG pO2 ABG pO2 ABG HCO3 ABG Base Excess ABG Hemoglobin VBG pH Oxyhemoglobin Sodium Potassium Chloride Carbon Dioxide BUN Creatinine Glucose POC Glucose 192 H 225 H 165 H Lactic Acid Calcium AST ALT Alkaline Phosphatase CK-MB (CK-2) CK-MB (CK-2) Rel Index Total Protein Albumin TSH Urine WBC (Auto) Salicylates 05/02/17 05/03/17 05/03/17 21:20 05:16 16:56 WBC RBC Hgb Hct MCV MCH RDW Plt Count Lymph % (Auto) [place] % (Auto) Eos % (Auto) [place] # Seg Neutrophils % Seg Neuts % (Manual) Lymphocytes % (Manual) Seg Neutrophils # Seg Neutrophils # Man Lymphocytes # (Manual) APTT POC ABG pH ABG pH POC ABG pCO2 POC ABG pO2 ABG pO2 ABG HCO3 ABG Base Excess ABG Hemoglobin VBG pH Oxyhemoglobin Sodium Potassium Chloride Carbon Dioxide BUN Creatinine Glucose POC Glucose 181 H 323 H 125 H Lactic Acid Calcium AST ALT Alkaline Phosphatase CK-MB (CK-2) CK-MB (CK-2) Rel Index Total Protein Albumin TSH Urine WBC (Auto) Salicylates 05/03/17 05/04/17 05/04/17 21:46 05:01 14:24 WBC RBC Hgb Hct MCV MCH RDW Plt Count Lymph % (Auto) [place] % (Auto) Eos % (Auto) [place] # Seg Neutrophils % Seg Neuts % (Manual) Lymphocytes % (Manual) Seg Neutrophils # Seg Neutrophils # Man Lymphocytes # (Manual) APTT POC ABG pH ABG pH POC ABG pCO2 POC ABG pO2 ABG pO2 ABG HCO3 ABG Base Excess ABG Hemoglobin VBG pH Oxyhemoglobin Sodium Potassium Chloride Carbon Dioxide BUN Creatinine Glucose POC Glucose 210 H 360 H 219 H Lactic Acid Calcium AST ALT Alkaline Phosphatase CK-MB (CK-2) CK-MB (CK-2) Rel Index Total Protein Albumin TSH Urine WBC (Auto) Salicylates 05/04/17 05/05/17 05/05/17 21:39 01:58 05:13 WBC RBC Hgb Hct MCV MCH RDW Plt Count Lymph % (Auto) [place] % (Auto) Eos % (Auto) [place] # Seg Neutrophils % Seg Neuts % (Manual) Lymphocytes % (Manual) Seg Neutrophils # Seg Neutrophils # Man Lymphocytes # (Manual) APTT POC ABG pH ABG pH POC ABG pCO2 POC ABG pO2 ABG pO2 ABG HCO3 ABG Base Excess ABG Hemoglobin VBG pH Oxyhemoglobin Sodium Potassium Chloride Carbon Dioxide BUN Creatinine Glucose POC Glucose 126 H 175 H 267 H Lactic Acid Calcium AST ALT Alkaline Phosphatase CK-MB (CK-2) CK-MB (CK-2) Rel Index Total Protein Albumin TSH Urine WBC (Auto) Salicylates 05/05/17 05/05/17 05/05/17 12:19 14:11 21:18 WBC RBC Hgb Hct MCV MCH RDW Plt Count Lymph % (Auto) [place] % (Auto) Eos % (Auto) [place] # Seg Neutrophils % Seg Neuts % (Manual) Lymphocytes % (Manual) Seg Neutrophils # Seg Neutrophils # Man Lymphocytes # (Manual) APTT POC ABG pH ABG pH POC ABG pCO2 POC ABG pO2 ABG pO2 ABG HCO3 ABG Base Excess ABG Hemoglobin VBG pH Oxyhemoglobin Sodium Potassium Chloride Carbon Dioxide BUN Creatinine Glucose POC Glucose 221 H 205 H 156 H Lactic Acid Calcium AST ALT Alkaline Phosphatase CK-MB (CK-2) CK-MB (CK-2) Rel Index Total Protein Albumin TSH Urine WBC (Auto) Salicylates 05/06/17 05/06/17 05/06/17 06:02 15:26 21:43 WBC RBC Hgb Hct MCV MCH RDW Plt Count Lymph % (Auto) [place] % (Auto) Eos % (Auto) [place] # Seg Neutrophils % Seg Neuts % (Manual) Lymphocytes % (Manual) Seg Neutrophils # Seg Neutrophils # Man Lymphocytes # (Manual) APTT POC ABG pH ABG pH POC ABG pCO2 POC ABG pO2 ABG pO2 ABG HCO3 ABG Base Excess ABG Hemoglobin VBG pH Oxyhemoglobin Sodium Potassium Chloride Carbon Dioxide BUN Creatinine Glucose POC Glucose 263 H 143 H 145 H Lactic Acid Calcium AST ALT Alkaline Phosphatase CK-MB (CK-2) CK-MB (CK-2) Rel Index Total Protein Albumin TSH Urine WBC (Auto) Salicylates 05/07/17 05/07/17 05/07/17 05:52 21:46 21:49 WBC RBC Hgb Hct MCV MCH RDW Plt Count Lymph % (Auto) [place] % (Auto) Eos % (Auto) [place] # Seg Neutrophils % Seg Neuts % (Manual) Lymphocytes % (Manual) Seg Neutrophils # Seg Neutrophils # Man Lymphocytes # (Manual) APTT POC ABG pH ABG pH POC ABG pCO2 POC ABG pO2 ABG pO2 ABG HCO3 ABG Base Excess ABG Hemoglobin VBG pH Oxyhemoglobin Sodium Potassium Chloride Carbon Dioxide BUN Creatinine Glucose POC Glucose 242 H < 40 L < 40 L Lactic Acid Calcium AST ALT Alkaline Phosphatase CK-MB (CK-2) CK-MB (CK-2) Rel Index Total Protein Albumin TSH Urine WBC (Auto) Salicylates 05/07/17 05/08/17 05/09/17 22:41 06:14 00:02 WBC RBC Hgb Hct MCV MCH RDW Plt Count Lymph % (Auto) [place] % (Auto) Eos % (Auto) [place] # Seg Neutrophils % Seg Neuts % (Manual) Lymphocytes % (Manual) Seg Neutrophils # Seg Neutrophils # Man Lymphocytes # (Manual) APTT POC ABG pH ABG pH POC ABG pCO2 POC ABG pO2 ABG pO2 ABG HCO3 ABG Base Excess ABG Hemoglobin VBG pH Oxyhemoglobin Sodium Potassium Chloride Carbon Dioxide BUN Creatinine Glucose POC Glucose 183 H 329 H 130 H Lactic Acid Calcium AST ALT Alkaline Phosphatase CK-MB (CK-2) CK-MB (CK-2) Rel Index Total Protein Albumin TSH Urine WBC (Auto) Salicylates 05/09/17 05/09/17 05/09/17 06:08 14:06 21:44 WBC RBC Hgb Hct MCV MCH RDW Plt Count Lymph % (Auto) [place] % (Auto) Eos % (Auto) [place] # Seg Neutrophils % Seg Neuts % (Manual) Lymphocytes % (Manual) Seg Neutrophils # Seg Neutrophils # Man Lymphocytes # (Manual) APTT POC ABG pH ABG pH POC ABG pCO2 POC ABG pO2 ABG pO2 ABG HCO3 ABG Base Excess ABG Hemoglobin VBG pH Oxyhemoglobin Sodium Potassium Chloride Carbon Dioxide BUN Creatinine Glucose POC Glucose 241 H 251 H 198 H Lactic Acid Calcium AST ALT Alkaline Phosphatase CK-MB (CK-2) CK-MB (CK-2) Rel Index Total Protein Albumin TSH Urine WBC (Auto) Salicylates 05/10/17 05/10/17 05/10/17 05:18 14:44 21:53 WBC RBC Hgb Hct MCV MCH RDW Plt Count Lymph % (Auto) [place] % (Auto) Eos % (Auto) [place] # Seg Neutrophils % Seg Neuts % (Manual) Lymphocytes % (Manual) Seg Neutrophils # Seg Neutrophils # Man Lymphocytes # (Manual) APTT POC ABG pH ABG pH POC ABG pCO2 POC ABG pO2 ABG pO2 ABG HCO3 ABG Base Excess ABG Hemoglobin VBG pH Oxyhemoglobin Sodium Potassium Chloride Carbon Dioxide BUN Creatinine Glucose POC Glucose 166 H 224 H 171 H Lactic Acid Calcium AST ALT Alkaline Phosphatase CK-MB (CK-2) CK-MB (CK-2) Rel Index Total Protein Albumin TSH Urine WBC (Auto) Salicylates 05/11/17 05/11/17 05/11/17 05:45 13:44 21:42 WBC RBC Hgb Hct MCV MCH RDW Plt Count Lymph % (Auto) [place] % (Auto) Eos % (Auto) [place] # Seg Neutrophils % Seg Neuts % (Manual) Lymphocytes % (Manual) Seg Neutrophils # Seg Neutrophils # Man Lymphocytes # (Manual) APTT POC ABG pH ABG pH POC ABG pCO2 POC ABG pO2 ABG pO2 ABG HCO3 ABG Base Excess ABG Hemoglobin VBG pH Oxyhemoglobin Sodium Potassium Chloride Carbon Dioxide BUN Creatinine Glucose POC Glucose 199 H 150 H 163 H Lactic Acid Calcium AST ALT Alkaline Phosphatase CK-MB (CK-2) CK-MB (CK-2) Rel Index Total Protein Albumin TSH Urine WBC (Auto) Salicylates 05/12/17 05/12/17 05/12/17 06:03 13:59 21:22 WBC RBC Hgb Hct MCV MCH RDW Plt Count Lymph % (Auto) [place] % (Auto) Eos % (Auto) [place] # Seg Neutrophils % Seg Neuts % (Manual) Lymphocytes % (Manual) Seg Neutrophils # Seg Neutrophils # Man Lymphocytes # (Manual) APTT POC ABG pH ABG pH POC ABG pCO2 POC ABG pO2 ABG pO2 ABG HCO3 ABG Base Excess ABG Hemoglobin VBG pH Oxyhemoglobin Sodium Potassium Chloride Carbon Dioxide BUN Creatinine Glucose POC Glucose 147 H 243 H 116 H Lactic Acid Calcium AST ALT Alkaline Phosphatase CK-MB (CK-2) CK-MB (CK-2) Rel Index Total Protein Albumin TSH Urine WBC (Auto) Salicylates 05/13/17 05/13/17 05/13/17 05:28 13:49 21:29 WBC RBC Hgb Hct MCV MCH RDW Plt Count Lymph % (Auto) [place] % (Auto) Eos % (Auto) [place] # Seg Neutrophils % Seg Neuts % (Manual) Lymphocytes % (Manual) Seg Neutrophils # Seg Neutrophils # Man Lymphocytes # (Manual) APTT POC ABG pH ABG pH POC ABG pCO2 POC ABG pO2 ABG pO2 ABG HCO3 ABG Base Excess ABG Hemoglobin VBG pH Oxyhemoglobin Sodium Potassium Chloride Carbon Dioxide BUN Creatinine Glucose POC Glucose 213 H 224 H 379 H Lactic Acid Calcium AST ALT Alkaline Phosphatase CK-MB (CK-2) CK-MB (CK-2) Rel Index Total Protein Albumin TSH Urine WBC (Auto) Salicylates 05/14/17 05/14/17 05/14/17 05:17 13:35 21:23 WBC RBC Hgb Hct MCV MCH RDW Plt Count Lymph % (Auto) [place] % (Auto) Eos % (Auto) [place] # Seg Neutrophils % Seg Neuts % (Manual) Lymphocytes % (Manual) Seg Neutrophils # Seg Neutrophils # Man Lymphocytes # (Manual) APTT POC ABG pH ABG pH POC ABG pCO2 POC ABG pO2 ABG pO2 ABG HCO3 ABG Base Excess ABG Hemoglobin VBG pH Oxyhemoglobin Sodium Potassium Chloride Carbon Dioxide BUN Creatinine Glucose POC Glucose 234 H 242 H 218 H Lactic Acid Calcium AST ALT Alkaline Phosphatase CK-MB (CK-2) CK-MB (CK-2) Rel Index Total Protein Albumin TSH Urine WBC (Auto) Salicylates 05/15/17 05/15/17 05/16/17 04:58 13:53 01:34 WBC RBC Hgb Hct MCV MCH RDW Plt Count Lymph % (Auto) [place] % (Auto) Eos % (Auto) [place] # Seg Neutrophils % Seg Neuts % (Manual) Lymphocytes % (Manual) Seg Neutrophils # Seg Neutrophils # Man Lymphocytes # (Manual) APTT POC ABG pH ABG pH POC ABG pCO2 POC ABG pO2 ABG pO2 ABG HCO3 ABG Base Excess ABG Hemoglobin VBG pH Oxyhemoglobin Sodium Potassium Chloride Carbon Dioxide BUN Creatinine Glucose POC Glucose 310 H 193 H 263 H Lactic Acid Calcium AST ALT Alkaline Phosphatase CK-MB (CK-2) CK-MB (CK-2) Rel Index Total Protein Albumin TSH Urine WBC (Auto) Salicylates 05/16/17 05/16/17 05/16/17 06:03 14:36 21:59 WBC RBC Hgb Hct MCV MCH RDW Plt Count Lymph % (Auto) [place] % (Auto) Eos % (Auto) [place] # Seg Neutrophils % Seg Neuts % (Manual) Lymphocytes % (Manual) Seg Neutrophils # Seg Neutrophils # Man Lymphocytes # (Manual) APTT POC ABG pH ABG pH POC ABG pCO2 POC ABG pO2 ABG pO2 ABG HCO3 ABG Base Excess ABG Hemoglobin VBG pH Oxyhemoglobin Sodium Potassium Chloride Carbon Dioxide BUN Creatinine Glucose POC Glucose 330 H 272 H 198 H Lactic Acid Calcium AST ALT Alkaline Phosphatase CK-MB (CK-2) CK-MB (CK-2) Rel Index Total Protein Albumin TSH Urine WBC (Auto) Salicylates 05/17/17 05/17/17 05/18/17 05:48 13:59 05:27 WBC RBC Hgb Hct MCV MCH RDW Plt Count Lymph % (Auto) [place] % (Auto) Eos % (Auto) [place] # Seg Neutrophils % Seg Neuts % (Manual) Lymphocytes % (Manual) Seg Neutrophils # Seg Neutrophils # Man Lymphocytes # (Manual) APTT POC ABG pH ABG pH POC ABG pCO2 POC ABG pO2 ABG pO2 ABG HCO3 ABG Base Excess ABG Hemoglobin VBG pH Oxyhemoglobin Sodium Potassium Chloride Carbon Dioxide BUN Creatinine Glucose POC Glucose 204 H 229 H 152 H Lactic Acid Calcium AST ALT Alkaline Phosphatase CK-MB (CK-2) CK-MB (CK-2) Rel Index Total Protein Albumin TSH Urine WBC (Auto) Salicylates 05/18/17 05/18/17 05/19/17 14:16 21:27 04:59 WBC RBC Hgb Hct MCV MCH RDW Plt Count Lymph % (Auto) [place] % (Auto) Eos % (Auto) [place] # Seg Neutrophils % Seg Neuts % (Manual) Lymphocytes % (Manual) Seg Neutrophils # Seg Neutrophils # Man Lymphocytes # (Manual) APTT POC ABG pH ABG pH POC ABG pCO2 POC ABG pO2 ABG pO2 ABG HCO3 ABG Base Excess ABG Hemoglobin VBG pH Oxyhemoglobin Sodium Potassium Chloride Carbon Dioxide BUN Creatinine Glucose POC Glucose 217 H 202 H 131 H Lactic Acid Calcium AST ALT Alkaline Phosphatase CK-MB (CK-2) CK-MB (CK-2) Rel Index Total Protein Albumin TSH Urine WBC (Auto) Salicylates 05/19/17 05/20/17 05/20/17 14:57 00:11 05:45 WBC RBC Hgb Hct MCV MCH RDW Plt Count Lymph % (Auto) [place] % (Auto) Eos % (Auto) [place] # Seg Neutrophils % Seg Neuts % (Manual) Lymphocytes % (Manual) Seg Neutrophils # Seg Neutrophils # Man Lymphocytes # (Manual) APTT POC ABG pH ABG pH POC ABG pCO2 POC ABG pO2 ABG pO2 ABG HCO3 ABG Base Excess ABG Hemoglobin VBG pH Oxyhemoglobin Sodium Potassium Chloride Carbon Dioxide BUN Creatinine Glucose POC Glucose 216 H 197 H 195 H Lactic Acid Calcium AST ALT Alkaline Phosphatase CK-MB (CK-2) CK-MB (CK-2) Rel Index Total Protein Albumin TSH Urine WBC (Auto) Salicylates 05/20/17 05/20/17 05/21/17 13:29 22:11 05:43 WBC RBC Hgb Hct MCV MCH RDW Plt Count Lymph % (Auto) [place] % (Auto) Eos % (Auto) [place] # Seg Neutrophils % Seg Neuts % (Manual) Lymphocytes % (Manual) Seg Neutrophils # Seg Neutrophils # Man Lymphocytes # (Manual) APTT POC ABG pH ABG pH POC ABG pCO2 POC ABG pO2 ABG pO2 ABG HCO3 ABG Base Excess ABG Hemoglobin VBG pH Oxyhemoglobin Sodium Potassium Chloride Carbon Dioxide BUN Creatinine Glucose POC Glucose 138 H 242 H 228 H Lactic Acid Calcium AST ALT Alkaline Phosphatase CK-MB (CK-2) CK-MB (CK-2) Rel Index Total Protein Albumin TSH Urine WBC (Auto) Salicylates 05/21/17 05/21/17 05/22/17 14:06 21:49 05:31 WBC RBC Hgb Hct MCV MCH RDW Plt Count Lymph % (Auto) [place] % (Auto) Eos % (Auto) [place] # Seg Neutrophils % Seg Neuts % (Manual) Lymphocytes % (Manual) Seg Neutrophils # Seg Neutrophils # Man Lymphocytes # (Manual) APTT POC ABG pH ABG pH POC ABG pCO2 POC ABG pO2 ABG pO2 ABG HCO3 ABG Base Excess ABG Hemoglobin VBG pH Oxyhemoglobin Sodium Potassium Chloride Carbon Dioxide BUN Creatinine Glucose POC Glucose 191 H 166 H 184 H Lactic Acid Calcium AST ALT Alkaline Phosphatase CK-MB (CK-2) CK-MB (CK-2) Rel Index Total Protein Albumin TSH Urine WBC (Auto) Salicylates
--- NOTE | 2017-05-22 09:48 | Progress Note ---
Assessment and Plan Hypoglycemic brain injury Persistent vegetative state Metabolic encephalopathy Hypoglycemia/hypothermia, resolved Acute respiratory failure on mechanical ventilator dependent UTI with klebsiella, treated ( Cx + on 01/28), then with ESBL likely colonization hyponatremia, stable Hypothyroidism IDDM Hypertension low grade Fever, intermittently spikes temp - Cont supportive care and current medication. Monitor vitals, repeat cx on - no growth - increased dose of long acting insulin to 15 unit - Patient is DNR- needs guardianship from the state to give consent for further management, as has no family to give consent. - Documents signed for [facility] proxy update, hospice care evaluation Brief History: 51 YO Male with CKD,HTN, DM presents to ED after found down and unresponsive by his neighbor, who subsequently called EMS. Upon arrival, patient found unresponsive on the floor with a serum glucose of 21, patient has a known history of alcohol abuse and delirium tremens. The patient was administered D5 approximate 500 mls during transport without change in mental status/level of consciousness. Pt seen and evaluated in ED was was found to be unable to protect his airway. Pt was intubated and placed on vent support. Pt found to have evidence of hypothyroidism. He was started on Synthroid. He has since been in the ICU. regulatory services consultant try to locate family, even spoke to the friends who he lives with. They themselves were unaware of any family members. After ethics committee meeting on the patient, the decision was made to make him DO NOT RESUSCITATE and to transfer him to hospice. Given his very poor prognosis and poor likelihood of recovery. It was decided that was not his best interest to get trach and PEG. Therefore he'll be transferred to the hospice intubated. Now Awaiting on court order /state guardianship. Hospitalist Physical General: open eyes HEENT: Moist mucous membranes, , no lymphadenopathy Neck: supple Cardiac: S1-S2 heard Lungs: mechnical ventilated breath sounds Abdomen: soft , nontender, nondistended, bowel sounds positive Extremities: no edema clubbing or cyanosis Skin: no rash or lesions Neurologic: opens eyes, withdraws from painful stimuli, does not follow commend Subjective Date of service: 05/22/17 Principal diagnosis: Acute respiratory failure,encephalopathy Interval history: afebrile o/n, BG stable Objective - Constitutional Vitals: Vital Signs - 12hr 05/21/17 05/22/17 05/22/17 22:00 00:00 01:38 Temperature 98.8 F Pulse Rate 70 63 67 Pulse Rate [ 66 From Monitor] Pulse Rate [ 66 Left] Respiratory 15 12 Rate Blood Pressure 131/68 106/67 106/67 O2 Sat by Pulse 100 100 100 Oximetry 05/22/17 05/22/17 05/22/17 02:00 04:00 04:36 Temperature 98.0 F Pulse Rate 65 66 64 Pulse Rate [ From Monitor] Pulse Rate [ Left] Respiratory 12 12 Rate Blood Pressure 106/67 106/67 106/67 O2 Sat by Pulse 100 100 100 Oximetry 05/22/17 05/22/17 05/22/17 06:00 07:48 08:22 Temperature 99.0 F Pulse Rate 66 70 Pulse Rate [ From Monitor] Pulse Rate [ Left] Respiratory 12 21 Rate Blood Pressure 106/67 110/73 O2 Sat by Pulse 100 100 Oximetry - Labs CBC & Chem 7: 04/28/17 05:10 04/28/17 05:10 Labs: Abnormal lab results 05/21/17 05/21/17 05/22/17 Range/Units 14:06 21:49 05:31 POC Glucose 191 H 166 H 184 H (70-105)
[2017-05-22] MEDS: HEPARIN SUB-Q SCH ×2 (10:34→21:56)
[2017-05-22] MEDS: LEVEMIR (NF) SUB-Q SCH (10:35)
[2017-05-22] MEDS: PEPCID PO SCH ×2 (10:35→21:56)
[2017-05-23] MEDS: HumuLIN R SUB-Q SCH ×3 (06:26→22:52)
[2017-05-23] MEDS: LEVEMIR (NF) SUB-Q SCH (07:52)
[2017-05-23] MEDS: HEPARIN SUB-Q SCH ×2 (09:59→22:52)
[2017-05-23] MEDS: PEPCID PO SCH ×2 (10:00→22:52)
--- NOTE | 2017-05-23 12:25 | Progress Note ---
Assessment and Plan Hypoglycemic brain injury Persistent vegetative state Metabolic encephalopathy Hypoglycemia/hypothermia, resolved Acute respiratory failure on mechanical ventilator dependent UTI with klebsiella, treated ( Cx + on 01/28), then with ESBL likely colonization hyponatremia, stable Hypothyroidism IDDM Hypertension low grade Fever, intermittently spikes temp - Cont supportive care and current medication. Monitor vitals, repeat cx on - no growth - increased dose of long acting insulin to 15 unit - Patient is DNR- needs guardianship from the state to give consent for further management, as has no family to give consent. - Documents signed for [facility] proxy update, hospice care evaluation Brief History: 51 YO Male with CKD,HTN, DM presents to ED after found down and unresponsive by his neighbor, who subsequently called EMS. Upon arrival, patient found unresponsive on the floor with a serum glucose of 21, patient has a known history of alcohol abuse and delirium tremens. The patient was administered D5 approximate 500 mls during transport without change in mental status/level of consciousness. Pt seen and evaluated in ED was was found to be unable to protect his airway. Pt was intubated and placed on vent support. Pt found to have evidence of hypothyroidism. He was started on Synthroid. He has since been in the ICU. corporate services manager try to locate family, even spoke to the friends who he lives with. They themselves were unaware of any family members. After ethics committee meeting on the patient, the decision was made to make him DO NOT RESUSCITATE and to transfer him to hospice. Given his very poor prognosis and poor likelihood of recovery. It was decided that was not his best interest to get trach and PEG. Therefore he'll be transferred to the hospice intubated. Now Awaiting on court order /state guardianship. Hospitalist Physical General: open eyes HEENT: Moist mucous membranes, , no lymphadenopathy Neck: supple Cardiac: S1-S2 heard Lungs: mechnical ventilated breath sounds Abdomen: soft , nontender, nondistended, bowel sounds positive Extremities: no edema clubbing or cyanosis Skin: no rash or lesions Neurologic: opens eyes, withdraws from painful stimuli, does not follow commend Subjective Date of service: 05/23/17 Principal diagnosis: Acute respiratory failure,encephalopathy Interval history: afebrile o/n, BG stable Objective - Constitutional Vitals: Vital Signs - 12hr 02/12/18 02/12/18 02/12/18 04:01 04:45 06:01 Temperature 98.8 F Pulse Rate 75 73 Pulse Rate [ From Monitor] Respiratory 12 Rate Blood Pressure 105/72 105/72 O2 Sat by Pulse 99 100 Oximetry 05/23/17 05/23/17 05/23/17 07:56 09:35 10:42 Temperature 97.1 F L Pulse Rate 72 Pulse Rate [ 74 From Monitor] Respiratory 14 Rate Blood Pressure 124/75 O2 Sat by Pulse 100 100 Oximetry 05/23/17 11:17 Temperature Pulse Rate 72 Pulse Rate [ From Monitor] Respiratory 16 Rate Blood Pressure O2 Sat by Pulse 97 Oximetry - Labs CBC & Chem 7: 04/28/17 05:10 04/28/17 05:10 Labs: Abnormal lab results 05/22/17 05/22/17 05/23/17 Range/Units 14:03 21:45 05:41 POC Glucose 206 H 178 H 206 H (70-105)
[2017-05-24] MEDS: HumuLIN R SUB-Q SCH ×2 (06:21→13:36)
[2017-05-24] MEDS: LEVEMIR (NF) SUB-Q SCH (07:49)
--- NOTE | 2017-05-24 09:26 | Progress Note ---
Assessment and Plan 51 y/o male found down, concern for sepsis and now encephalopathic requiring mechanical ventilation. 1. continue supportive care 2. 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 I am aware that he is an AND but trach will not fix this problem and is not in my professional opinion the right thing to do for this patient. Most likely he will never be weaned from the vent and will remain in a persistent vegatative state. 3. Overall prognosis continues to be poor. 4. Will not check labs 5. Vitals should be qshift 6. This patient's possibility of awakening from this persistent vegatative is unlikely. The current status is that there has been paper work filed to obtain guardianship so that end of life decisions can be made. Supportive care is reasonable but checking daily labs and doing other invasive things to this patient I do not feel is morally and ethically appropriate. 7. Currently patient does not have IV access and is not requiring any medical therapy. Will not place another one at this time. 8. Per [place], went to court 05/03/17 for Guardianship. One has been appointed, awaiting to meet them. Per report, they agree with hospice care, but do not have the authority to authorize withdrawal once at hospice. 10. Will discuss on rounds if doing a brain flow at this point is reasonable Subjective Date of service: 05/24/17 Principal diagnosis: Acute respiratory failure,encephalopathy Interval history: No acute events. Mental status still unchanged. On rounds, discussed the guardian situation and I have reviewed the note from ethics committee. Patient has tolerated PSV for 24 hours for the first time since I have been involved with his care. Objective Vital Signs - 12hr 05/23/17 05/23/17 05/23/17 22:00 22:01 23:39 Temperature 97.8 F Pulse Rate 68 67 67 Respiratory 16 19 Rate Blood Pressure 122/74 122/74 O2 Sat by Pulse 100 100 100 Oximetry 05/24/17 05/24/17 05/24/17 00:00 00:35 04:00 Temperature 97.5 F L Pulse Rate 65 68 Respiratory 15 20 Rate Blood Pressure 109/71 109/11 O2 Sat by Pulse 100 100 Oximetry 05/24/17 05/24/17 05/24/17 04:11 06:24 08:00 Temperature 97.4 F L 98.8 F 97.1 F L Pulse Rate Respiratory Rate Blood Pressure O2 Sat by Pulse Oximetry 05/24/17 09:09 Temperature Pulse Rate 69 Respiratory Rate Blood Pressure 125/83 O2 Sat by Pulse 100 Oximetry Constitutional: no acute distress, other (on vent) Eyes: non-icteric ENT: oropharynx moist, other (ETT in position) Neck: supple Effort: normal Ascultation: Bilateral: clear, diminished breath sounds Cardiovascular: regular rate and rhythm (no mrg) Gastrointestinal: normoactive bowel sounds, soft, non-tender, non-distended Integumentary: normal Extremities: no cyanosis, no edema, pink and warm Neurologic: pupils equal and round, other (opens eyes spontaneously, but no meaningful responce to stimuli) Psychiatric: other (unable to obtain) CBC and BMP: 04/28/17 05:10 04/28/17 05:10 ABG, PT/INR, D-dimer: ABG POC ABG pH 7.442 (7.35-7.45) 01/31/17 18:55 ABG pH 7.420 pH Units (7.350-7.450) 01/17/17 04:35 POC ABG pCO2 32.8 (35-45) L 01/31/17 18:55 ABG pCO2 34.5 mm Hg 01/17/17 04:35 POC ABG pO2 82 (80-105) 01/31/17 18:55 ABG pO2 160.3 mm Hg (80.0-90.0) H 01/17/17 04:35 POC ABG HCO3 22.4 01/31/17 18:55 POC ABG Total CO2 23 01/31/17 18:55 POC ABG O2 Sat 97 01/31/17 18:55 ABG O2 Saturation 99.0 % (95.0-99.0) 01/17/17 04:35 PT/INR, D-dimer PT 14.1 Sec. (12.2-14.9) 01/17/17 04:10 INR 1.04 (0.87-1.13) 01/17/17 04:10 Abnormal lab findings: Abnormal Labs 01/09/17 01/09/17 01/09/17 10:16 10:16 10:16 WBC RBC Hgb 9.7 L Hct 28.4 L MCV 76 L MCH 26 L RDW 17.2 H Plt Count 448 H Lymph % (Auto) [place] % (Auto) Eos % (Auto) [place] # Seg Neutrophils % 79.5 H Seg Neuts % (Manual) Lymphocytes % (Manual) Seg Neutrophils # Seg Neutrophils # Man Lymphocytes # (Manual) APTT 39.6 H POC ABG pH ABG pH POC ABG pCO2 POC ABG pO2 ABG pO2 ABG HCO3 ABG Base Excess ABG Hemoglobin VBG pH Oxyhemoglobin Sodium 132 L Potassium Chloride 96.7 L Carbon Dioxide 21 L BUN 34 H Creatinine Glucose POC Glucose Lactic Acid Calcium 8.3 L AST ALT Alkaline Phosphatase 151 H CK-MB (CK-2) 7.1 H CK-MB (CK-2) Rel Index 5.2 H Total Protein Albumin 3.3 L TSH Urine WBC (Auto) Salicylates 01/09/17 01/09/17 01/09/17 10:16 10:16 10:16 WBC RBC Hgb Hct MCV MCH RDW Plt Count Lymph % (Auto) [place] % (Auto) Eos % (Auto) [place] # Seg Neutrophils % Seg Neuts % (Manual) Lymphocytes % (Manual) Seg Neutrophils # Seg Neutrophils # Man Lymphocytes # (Manual) APTT POC ABG pH ABG pH POC ABG pCO2 POC ABG pO2 ABG pO2 ABG HCO3 ABG Base Excess ABG Hemoglobin VBG pH 7.284 L Oxyhemoglobin Sodium Potassium Chloride Carbon Dioxide BUN Creatinine Glucose POC Glucose Lactic Acid Calcium AST ALT Alkaline Phosphatase CK-MB (CK-2) CK-MB (CK-2) Rel Index Total Protein Albumin TSH 52.800 H Urine WBC (Auto) Salicylates < 0.3 L 01/09/17 01/09/17 01/09/17 10:23 11:14 12:49 WBC RBC Hgb Hct MCV MCH RDW Plt Count Lymph % (Auto) [place] % (Auto) Eos % (Auto) [place] # Seg Neutrophils % Seg Neuts % (Manual) Lymphocytes % (Manual) Seg Neutrophils # Seg Neutrophils # Man Lymphocytes # (Manual) APTT POC ABG pH ABG pH POC ABG pCO2 POC ABG pO2 643 H ABG pO2 ABG HCO3 ABG Base Excess ABG Hemoglobin VBG pH Oxyhemoglobin Sodium Potassium Chloride Carbon Dioxide BUN Creatinine Glucose POC Glucose < 40 L Lactic Acid Calcium AST ALT Alkaline Phosphatase CK-MB (CK-2) CK-MB (CK-2) Rel Index Total Protein Albumin TSH Urine WBC (Auto) 61.0 H Salicylates 01/09/17 01/09/17 01/09/17 13:13 14:21 15:09 WBC RBC Hgb Hct MCV MCH RDW Plt Count Lymph % (Auto) [place] % (Auto) Eos % (Auto) [place] # Seg Neutrophils % Seg Neuts % (Manual) Lymphocytes % (Manual) Seg Neutrophils # Seg Neutrophils # Man Lymphocytes # (Manual) APTT POC ABG pH ABG pH POC ABG pCO2 POC ABG pO2 ABG pO2 ABG HCO3 ABG Base Excess ABG Hemoglobin VBG pH Oxyhemoglobin Sodium Potassium Chloride Carbon Dioxide BUN Creatinine Glucose POC Glucose 128 H 65 L 120 H Lactic Acid Calcium AST ALT Alkaline Phosphatase CK-MB (CK-2) CK-MB (CK-2) Rel Index Total Protein Albumin TSH Urine WBC (Auto) Salicylates 01/09/17 01/09/17 01/10/17 16:28 17:14 04:30 WBC 24.1 H RBC 3.38 L Hgb 8.5 L Hct 26.0 L MCV 77 L MCH 25 L RDW 17.9 H Plt Count 474 H Lymph % (Auto) [place] % (Auto) Eos % (Auto) [place] # Seg Neutrophils % Seg Neuts % (Manual) 88.0 H Lymphocytes % (Manual) 4.0 L Seg Neutrophils # Seg Neutrophils # Man 21.2 H Lymphocytes # (Manual) 1.0 L APTT POC ABG pH ABG pH POC ABG pCO2 POC ABG pO2 ABG pO2 ABG HCO3 ABG Base Excess ABG Hemoglobin VBG pH Oxyhemoglobin Sodium Potassium Chloride Carbon Dioxide BUN Creatinine Glucose POC Glucose 44 L 112 H Lactic Acid Calcium AST ALT Alkaline Phosphatase CK-MB (CK-2) CK-MB (CK-2) Rel Index Total Protein Albumin TSH Urine WBC (Auto) Salicylates 01/10/17 01/10/17 01/10/17 04:30 05:41 05:45 WBC RBC Hgb Hct MCV MCH RDW Plt Count Lymph % (Auto) [place] % (Auto) Eos % (Auto) [place] # Seg Neutrophils % Seg Neuts % (Manual) Lymphocytes % (Manual) Seg Neutrophils # Seg Neutrophils # Man Lymphocytes # (Manual) APTT POC ABG pH ABG pH POC ABG pCO2 26.6 L POC ABG pO2 207 H ABG pO2 ABG HCO3 ABG Base Excess ABG Hemoglobin VBG pH Oxyhemoglobin Sodium Potassium Chloride Carbon Dioxide 17 L BUN 27 H Creatinine Glucose POC Glucose 68 L Lactic Acid Calcium 7.5 L AST ALT Alkaline Phosphatase CK-MB (CK-2) CK-MB (CK-2) Rel Index Total Protein Albumin TSH Urine WBC (Auto) Salicylates 01/10/17 01/10/17 01/10/17 07:47 10:50 13:41 WBC RBC Hgb Hct MCV MCH RDW Plt Count Lymph % (Auto) [place] % (Auto) Eos % (Auto) [place] # Seg Neutrophils % Seg Neuts % (Manual) Lymphocytes % (Manual) Seg Neutrophils # Seg Neutrophils # Man Lymphocytes # (Manual) APTT POC ABG pH ABG pH POC ABG pCO2 POC ABG pO2 ABG pO2 ABG HCO3 ABG Base Excess ABG Hemoglobin VBG pH Oxyhemoglobin Sodium Potassium Chloride Carbon Dioxide BUN Creatinine Glucose POC Glucose 148 H 165 H 114 H Lactic Acid Calcium AST ALT Alkaline Phosphatase CK-MB (CK-2) CK-MB (CK-2) Rel Index Total Protein Albumin TSH Urine WBC (Auto) Salicylates 01/10/17 01/10/17 01/10/17 20:20 21:39 23:24 WBC RBC Hgb Hct MCV MCH RDW Plt Count Lymph % (Auto) [place] % (Auto) Eos % (Auto) [place] # Seg Neutrophils % Seg Neuts % (Manual) Lymphocytes % (Manual) Seg Neutrophils # Seg Neutrophils # Man Lymphocytes # (Manual) APTT POC ABG pH ABG pH POC ABG pCO2 POC ABG pO2 ABG pO2 ABG HCO3 ABG Base Excess ABG Hemoglobin VBG pH Oxyhemoglobin Sodium Potassium Chloride Carbon Dioxide BUN Creatinine Glucose POC Glucose 150 H 175 H 155 H Lactic Acid Calcium AST ALT Alkaline Phosphatase CK-MB (CK-2) CK-MB (CK-2) Rel Index Total Protein Albumin TSH Urine WBC (Auto) Salicylates 01/11/17 01/11/17 01/11/17 00:19 04:06 05:20 WBC 15.2 H RBC 3.40 L Hgb 8.9 L Hct 26.3 L MCV 78 L MCH 26 L RDW 18.6 H Plt Count 462 H Lymph % (Auto) 13.2 L [place] % (Auto) Eos % (Auto) [place] # Seg Neutrophils % 80.8 H Seg Neuts % (Manual) Lymphocytes % (Manual) Seg Neutrophils # 12.3 H Seg Neutrophils # Man Lymphocytes # (Manual) APTT POC ABG pH 7.463 H ABG pH POC ABG pCO2 26.2 L POC ABG pO2 185 H ABG pO2 ABG HCO3 ABG Base Excess ABG Hemoglobin VBG pH Oxyhemoglobin Sodium Potassium Chloride Carbon Dioxide BUN Creatinine Glucose POC Glucose 163 H Lactic Acid Calcium AST ALT Alkaline Phosphatase CK-MB (CK-2) CK-MB (CK-2) Rel Index Total Protein Albumin TSH Urine WBC (Auto) Salicylates 01/11/17 01/11/17 01/11/17 05:20 06:21 07:57 WBC RBC Hgb Hct MCV MCH RDW Plt Count Lymph % (Auto) [place] % (Auto) Eos % (Auto) [place] # Seg Neutrophils % Seg Neuts % (Manual) Lymphocytes % (Manual) Seg Neutrophils # Seg Neutrophils # Man Lymphocytes # (Manual) APTT POC ABG pH ABG pH POC ABG pCO2 POC ABG pO2 ABG pO2 ABG HCO3 ABG Base Excess ABG Hemoglobin VBG pH Oxyhemoglobin Sodium Potassium 3.4 L Chloride 111.5 H Carbon Dioxide 17 L BUN Creatinine Glucose 147 H POC Glucose 139 H 188 H Lactic Acid Calcium 8.0 L AST ALT Alkaline Phosphatase CK-MB (CK-2) CK-MB (CK-2) Rel Index Total Protein Albumin TSH Urine WBC (Auto) Salicylates 01/11/17 01/11/17 01/11/17 11:46 16:50 23:15 WBC RBC Hgb Hct MCV MCH RDW Plt Count Lymph % (Auto) [place] % (Auto) Eos % (Auto) [place] # Seg Neutrophils % Seg Neuts % (Manual) Lymphocytes % (Manual) Seg Neutrophils # Seg Neutrophils # Man Lymphocytes # (Manual) APTT POC ABG pH ABG pH POC ABG pCO2 POC ABG pO2 ABG pO2 ABG HCO3 ABG Base Excess ABG Hemoglobin VBG pH Oxyhemoglobin Sodium Potassium Chloride Carbon Dioxide BUN Creatinine Glucose POC Glucose 199 H 235 H 155 H Lactic Acid Calcium AST ALT Alkaline Phosphatase CK-MB (CK-2) CK-MB (CK-2) Rel Index Total Protein Albumin TSH Urine WBC (Auto) Salicylates 01/12/17 01/12/17 01/12/17 05:02 06:56 14:50 WBC RBC Hgb Hct MCV MCH RDW Plt Count Lymph % (Auto) [place] % (Auto) Eos % (Auto) [place] # Seg Neutrophils % Seg Neuts % (Manual) Lymphocytes % (Manual) Seg Neutrophils # Seg Neutrophils # Man Lymphocytes # (Manual) APTT POC ABG pH ABG pH POC ABG pCO2 28.0 L POC ABG pO2 178 H ABG pO2 ABG HCO3 ABG Base Excess ABG Hemoglobin VBG pH Oxyhemoglobin Sodium Potassium Chloride Carbon Dioxide BUN Creatinine Glucose POC Glucose 119 H 164 H Lactic Acid Calcium AST ALT Alkaline Phosphatase CK-MB (CK-2) CK-MB (CK-2) Rel Index Total Protein Albumin TSH Urine WBC (Auto) Salicylates 01/13/17 01/13/17 01/13/17 03:37 03:37 04:26 WBC RBC 3.61 L Hgb 9.3 L Hct 28.0 L MCV 78 L MCH 26 L RDW 18.2 H Plt Count Lymph % (Auto) [place] % (Auto) Eos % (Auto) [place] # Seg Neutrophils % Seg Neuts % (Manual) Lymphocytes % (Manual) Seg Neutrophils # Seg Neutrophils # Man Lymphocytes # (Manual) APTT POC ABG pH 7.485 H ABG pH POC ABG pCO2 25.4 L POC ABG pO2 73 L ABG pO2 ABG HCO3 ABG Base Excess ABG Hemoglobin VBG pH Oxyhemoglobin Sodium Potassium Chloride 112.4 H Carbon Dioxide 19 L BUN Creatinine Glucose 118 H POC Glucose Lactic Acid Calcium 8.0 L AST ALT Alkaline Phosphatase CK-MB (CK-2) CK-MB (CK-2) Rel Index Total Protein Albumin TSH Urine WBC (Auto) Salicylates 01/13/17 01/13/17 01/13/17 06:15 11:50 17:31 WBC RBC Hgb Hct MCV MCH RDW Plt Count Lymph % (Auto) [place] % (Auto) Eos % (Auto) [place] # Seg Neutrophils % Seg Neuts % (Manual) Lymphocytes % (Manual) Seg Neutrophils # Seg Neutrophils # Man Lymphocytes # (Manual) APTT POC ABG pH ABG pH POC ABG pCO2 POC ABG pO2 ABG pO2 ABG HCO3 ABG Base Excess ABG Hemoglobin VBG pH Oxyhemoglobin Sodium Potassium Chloride Carbon Dioxide BUN Creatinine Glucose POC Glucose 116 H 171 H 203 H Lactic Acid Calcium AST ALT Alkaline Phosphatase CK-MB (CK-2) CK-MB (CK-2) Rel Index Total Protein Albumin TSH Urine WBC (Auto) Salicylates 01/14/17 01/14/17 01/14/17 00:02 04:50 04:50 WBC RBC 3.32 L Hgb 8.5 L Hct 26.1 L MCV 79 L MCH 26 L RDW 18.2 H Plt Count Lymph % (Auto) [place] % (Auto) 9.0 H Eos % (Auto) [place] # Seg Neutrophils % Seg Neuts % (Manual) Lymphocytes % (Manual) Seg Neutrophils # Seg Neutrophils # Man Lymphocytes # (Manual) APTT POC ABG pH ABG pH POC ABG pCO2 POC ABG pO2 ABG pO2 ABG HCO3 ABG Base Excess ABG Hemoglobin VBG pH Oxyhemoglobin Sodium Potassium Chloride 112.5 H Carbon Dioxide BUN Creatinine Glucose 149 H POC Glucose 157 H Lactic Acid Calcium 8.1 L AST ALT Alkaline Phosphatase CK-MB (CK-2) CK-MB (CK-2) Rel Index Total Protein Albumin TSH Urine WBC (Auto) Salicylates 01/14/17 01/14/17 01/14/17 05:10 11:27 14:07 WBC RBC Hgb Hct MCV MCH RDW Plt Count Lymph % (Auto) [place] % (Auto) Eos % (Auto) [place] # Seg Neutrophils % Seg Neuts % (Manual) Lymphocytes % (Manual) Seg Neutrophils # Seg Neutrophils # Man Lymphocytes # (Manual) APTT POC ABG pH ABG pH POC ABG pCO2 POC ABG pO2 ABG pO2 ABG HCO3 ABG Base Excess ABG Hemoglobin VBG pH Oxyhemoglobin Sodium Potassium Chloride Carbon Dioxide BUN Creatinine Glucose POC Glucose 176 H 147 H Lactic Acid Calcium AST ALT Alkaline Phosphatase CK-MB (CK-2) CK-MB (CK-2) Rel Index Total Protein Albumin TSH Urine WBC (Auto) 53.0 H Salicylates 01/14/17 01/15/17 01/15/17 16:52 00:04 05:26 WBC RBC Hgb Hct MCV MCH RDW Plt Count Lymph % (Auto) [place] % (Auto) Eos % (Auto) [place] # Seg Neutrophils % Seg Neuts % (Manual) Lymphocytes % (Manual) Seg Neutrophils # Seg Neutrophils # Man Lymphocytes # (Manual) APTT POC ABG pH ABG pH POC ABG pCO2 POC ABG pO2 ABG pO2 ABG HCO3 ABG Base Excess ABG Hemoglobin VBG pH Oxyhemoglobin Sodium Potassium Chloride Carbon Dioxide BUN Creatinine Glucose POC Glucose 131 H 193 H 215 H Lactic Acid Calcium AST ALT Alkaline Phosphatase CK-MB (CK-2) CK-MB (CK-2) Rel Index Total Protein Albumin TSH Urine WBC (Auto) Salicylates 01/15/17 01/15/17 01/15/17 11:49 17:47 21:33 WBC RBC Hgb Hct MCV MCH RDW Plt Count Lymph % (Auto) [place] % (Auto) Eos % (Auto) [place] # Seg Neutrophils % Seg Neuts % (Manual) Lymphocytes % (Manual) Seg Neutrophils # Seg Neutrophils # Man Lymphocytes # (Manual) APTT POC ABG pH ABG pH POC ABG pCO2 POC ABG pO2 ABG pO2 ABG HCO3 ABG Base Excess ABG Hemoglobin VBG pH Oxyhemoglobin Sodium Potassium Chloride Carbon Dioxide BUN Creatinine Glucose POC Glucose 121 H 211 H 275 H Lactic Acid Calcium AST ALT Alkaline Phosphatase CK-MB (CK-2) CK-MB (CK-2) Rel Index Total Protein Albumin TSH Urine WBC (Auto) Salicylates 01/16/17 01/16/17 01/16/17 04:30 05:28 13:45 WBC RBC Hgb Hct MCV MCH RDW Plt Count Lymph % (Auto) [place] % (Auto) Eos % (Auto) [place] # Seg Neutrophils % Seg Neuts % (Manual) Lymphocytes % (Manual) Seg Neutrophils # Seg Neutrophils # Man Lymphocytes # (Manual) APTT POC ABG pH ABG pH 7.457 H POC ABG pCO2 POC ABG pO2 ABG pO2 55.1 L ABG HCO3 19.4 L ABG Base Excess -4.0 L ABG Hemoglobin 6.8 L VBG pH Oxyhemoglobin 94.9 L Sodium Potassium Chloride Carbon Dioxide BUN Creatinine Glucose POC Glucose 271 H 236 H Lactic Acid Calcium AST ALT Alkaline Phosphatase CK-MB (CK-2) CK-MB (CK-2) Rel Index Total Protein Albumin TSH Urine WBC (Auto) Salicylates 01/16/17 01/17/17 01/17/17 21:39 04:10 04:10 WBC 4.4 L RBC 2.98 L Hgb 7.7 L Hct 23.3 L MCV 78 L MCH 26 L RDW 18.1 H Plt Count Lymph % (Auto) [place] % (Auto) Eos % (Auto) [place] # Seg Neutrophils % Seg Neuts % (Manual) Lymphocytes % (Manual) Seg Neutrophils # Seg Neutrophils # Man Lymphocytes # (Manual) APTT POC ABG pH ABG pH POC ABG pCO2 POC ABG pO2 ABG pO2 ABG HCO3 ABG Base Excess ABG Hemoglobin VBG pH Oxyhemoglobin Sodium Potassium 3.3 L Chloride 108.7 H Carbon Dioxide 20 L BUN 8 L Creatinine Glucose 202 H POC Glucose 258 H Lactic Acid Calcium 7.6 L AST ALT Alkaline Phosphatase CK-MB (CK-2) CK-MB (CK-2) Rel Index Total Protein Albumin TSH Urine WBC (Auto) Salicylates 01/17/17 01/17/17 01/17/17 04:35 12:23 16:01 WBC RBC Hgb Hct MCV MCH RDW Plt Count Lymph % (Auto) [place] % (Auto) Eos % (Auto) [place] # Seg Neutrophils % Seg Neuts % (Manual) Lymphocytes % (Manual) Seg Neutrophils # Seg Neutrophils # Man Lymphocytes # (Manual) APTT POC ABG pH ABG pH POC ABG pCO2 POC ABG pO2 ABG pO2 160.3 H ABG HCO3 ABG Base Excess -2.3 L ABG Hemoglobin 7.9 L VBG pH Oxyhemoglobin Sodium Potassium Chloride Carbon Dioxide BUN Creatinine Glucose POC Glucose 321 H 239 H Lactic Acid Calcium AST ALT Alkaline Phosphatase CK-MB (CK-2) CK-MB (CK-2) Rel Index Total Protein Albumin TSH Urine WBC (Auto) Salicylates 01/18/17 01/18/17 01/18/17 05:07 12:09 17:54 WBC RBC Hgb Hct MCV MCH RDW Plt Count Lymph % (Auto) [place] % (Auto) Eos % (Auto) [place] # Seg Neutrophils % Seg Neuts % (Manual) Lymphocytes % (Manual) Seg Neutrophils # Seg Neutrophils # Man Lymphocytes # (Manual) APTT POC ABG pH ABG pH POC ABG pCO2 POC ABG pO2 ABG pO2 ABG HCO3 ABG Base Excess ABG Hemoglobin VBG pH Oxyhemoglobin Sodium Potassium Chloride Carbon Dioxide BUN Creatinine Glucose POC Glucose 155 H 203 H 132 H Lactic Acid Calcium AST ALT Alkaline Phosphatase CK-MB (CK-2) CK-MB (CK-2) Rel Index Total Protein Albumin TSH Urine WBC (Auto) Salicylates 01/18/17 01/19/17 01/19/17 23:43 04:28 12:11 WBC RBC Hgb Hct MCV MCH RDW Plt Count Lymph % (Auto) [place] % (Auto) Eos % (Auto) [place] # Seg Neutrophils % Seg Neuts % (Manual) Lymphocytes % (Manual) Seg Neutrophils # Seg Neutrophils # Man Lymphocytes # (Manual) APTT POC ABG pH ABG pH POC ABG pCO2 POC ABG pO2 ABG pO2 ABG HCO3 ABG Base Excess ABG Hemoglobin VBG pH Oxyhemoglobin Sodium Potassium Chloride Carbon Dioxide BUN Creatinine Glucose POC Glucose 125 H 182 H 153 H Lactic Acid Calcium AST ALT Alkaline Phosphatase CK-MB (CK-2) CK-MB (CK-2) Rel Index Total Protein Albumin TSH Urine WBC (Auto) Salicylates 01/19/17 01/20/17 01/20/17 17:23 00:12 05:44 WBC RBC Hgb Hct MCV MCH RDW Plt Count Lymph % (Auto) [place] % (Auto) Eos % (Auto) [place] # Seg Neutrophils % Seg Neuts % (Manual) Lymphocytes % (Manual) Seg Neutrophils # Seg Neutrophils # Man Lymphocytes # (Manual) APTT POC ABG pH ABG pH POC ABG pCO2 POC ABG pO2 ABG pO2 ABG HCO3 ABG Base Excess ABG Hemoglobin VBG pH Oxyhemoglobin Sodium Potassium Chloride Carbon Dioxide BUN Creatinine Glucose POC Glucose 66 L 139 H 176 H Lactic Acid Calcium AST ALT Alkaline Phosphatase CK-MB (CK-2) CK-MB (CK-2) Rel Index Total Protein Albumin TSH Urine WBC (Auto) Salicylates 01/20/17 01/20/17 01/20/17 11:48 17:42 23:43 WBC RBC Hgb Hct MCV MCH RDW Plt Count Lymph % (Auto) [place] % (Auto) Eos % (Auto) [place] # Seg Neutrophils % Seg Neuts % (Manual) Lymphocytes % (Manual) Seg Neutrophils # Seg Neutrophils # Man Lymphocytes # (Manual) APTT POC ABG pH ABG pH POC ABG pCO2 POC ABG pO2 ABG pO2 ABG HCO3 ABG Base Excess ABG Hemoglobin VBG pH Oxyhemoglobin Sodium Potassium Chloride Carbon Dioxide BUN Creatinine Glucose POC Glucose 218 H 132 H 178 H Lactic Acid Calcium AST ALT Alkaline Phosphatase CK-MB (CK-2) CK-MB (CK-2) Rel Index Total Protein Albumin TSH Urine WBC (Auto) Salicylates 01/21/17 01/21/17 01/21/17 05:34 11:17 23:37 WBC RBC Hgb Hct MCV MCH RDW Plt Count Lymph % (Auto) [place] % (Auto) Eos % (Auto) [place] # Seg Neutrophils % Seg Neuts % (Manual) Lymphocytes % (Manual) Seg Neutrophils # Seg Neutrophils # Man Lymphocytes # (Manual) APTT POC ABG pH ABG pH POC ABG pCO2 POC ABG pO2 ABG pO2 ABG HCO3 ABG Base Excess ABG Hemoglobin VBG pH Oxyhemoglobin Sodium Potassium Chloride Carbon Dioxide BUN Creatinine Glucose POC Glucose 106 H 213 H 140 H Lactic Acid Calcium AST ALT Alkaline Phosphatase CK-MB (CK-2) CK-MB (CK-2) Rel Index Total Protein Albumin TSH Urine WBC (Auto) Salicylates 01/22/17 01/22/17 01/22/17 04:00 04:00 04:58 WBC RBC 3.26 L Hgb 8.3 L Hct 25.5 L MCV 78 L MCH 25 L RDW 17.9 H Plt Count Lymph % (Auto) [place] % (Auto) 7.9 H Eos % (Auto) 6.2 H [place] # Seg Neutrophils % Seg Neuts % (Manual) Lymphocytes % (Manual) Seg Neutrophils # Seg Neutrophils # Man Lymphocytes # (Manual) APTT POC ABG pH ABG pH POC ABG pCO2 POC ABG pO2 ABG pO2 ABG HCO3 ABG Base Excess ABG Hemoglobin VBG pH Oxyhemoglobin Sodium Potassium Chloride 95.5 L Carbon Dioxide 31 H D BUN Creatinine Glucose 134 H POC Glucose 146 H Lactic Acid Calcium AST 44 H ALT Alkaline Phosphatase 379 H CK-MB (CK-2) CK-MB (CK-2) Rel Index Total Protein Albumin 2.7 L TSH Urine WBC (Auto) Salicylates 01/22/17 01/22/17 01/22/17 12:12 18:12 23:39 WBC RBC Hgb Hct MCV MCH RDW Plt Count Lymph % (Auto) [place] % (Auto) Eos % (Auto) [place] # Seg Neutrophils % Seg Neuts % (Manual) Lymphocytes % (Manual) Seg Neutrophils # Seg Neutrophils # Man Lymphocytes # (Manual) APTT POC ABG pH ABG pH POC ABG pCO2 POC ABG pO2 ABG pO2 ABG HCO3 ABG Base Excess ABG Hemoglobin VBG pH Oxyhemoglobin Sodium Potassium Chloride Carbon Dioxide BUN Creatinine Glucose POC Glucose 255 H 182 H 134 H Lactic Acid Calcium AST ALT Alkaline Phosphatase CK-MB (CK-2) CK-MB (CK-2) Rel Index Total Protein Albumin TSH Urine WBC (Auto) Salicylates 01/23/17 01/23/17 01/23/17 04:43 12:12 17:36 WBC RBC Hgb Hct MCV MCH RDW Plt Count Lymph % (Auto) [place] % (Auto) Eos % (Auto) [place] # Seg Neutrophils % Seg Neuts % (Manual) Lymphocytes % (Manual) Seg Neutrophils # Seg Neutrophils # Man Lymphocytes # (Manual) APTT POC ABG pH ABG pH POC ABG pCO2 POC ABG pO2 ABG pO2 ABG HCO3 ABG Base Excess ABG Hemoglobin VBG pH Oxyhemoglobin Sodium Potassium Chloride Carbon Dioxide BUN Creatinine Glucose POC Glucose 218 H 128 H 156 H Lactic Acid Calcium AST ALT Alkaline Phosphatase CK-MB (CK-2) CK-MB (CK-2) Rel Index Total Protein Albumin TSH Urine WBC (Auto) Salicylates 01/24/17 01/24/17 01/24/17 00:08 05:16 11:40 WBC RBC Hgb Hct MCV MCH RDW Plt Count Lymph % (Auto) [place] % (Auto) Eos % (Auto) [place] # Seg Neutrophils % Seg Neuts % (Manual) Lymphocytes % (Manual) Seg Neutrophils # Seg Neutrophils # Man Lymphocytes # (Manual) APTT POC ABG pH ABG pH POC ABG pCO2 POC ABG pO2 ABG pO2 ABG HCO3 ABG Base Excess ABG Hemoglobin VBG pH Oxyhemoglobin Sodium Potassium Chloride Carbon Dioxide BUN Creatinine Glucose POC Glucose 129 H 169 H 187 H Lactic Acid Calcium AST ALT Alkaline Phosphatase CK-MB (CK-2) CK-MB (CK-2) Rel Index Total Protein Albumin TSH Urine WBC (Auto) Salicylates 01/24/17 01/24/17 01/25/17 17:43 23:23 04:56 WBC RBC Hgb Hct MCV MCH RDW Plt Count Lymph % (Auto) [place] % (Auto) Eos % (Auto) [place] # Seg Neutrophils % Seg Neuts % (Manual) Lymphocytes % (Manual) Seg Neutrophils # Seg Neutrophils # Man Lymphocytes # (Manual) APTT POC ABG pH ABG pH POC ABG pCO2 POC ABG pO2 ABG pO2 ABG HCO3 ABG Base Excess ABG Hemoglobin VBG pH Oxyhemoglobin Sodium Potassium Chloride Carbon Dioxide BUN Creatinine Glucose POC Glucose 215 H 222 H 210 H Lactic Acid Calcium AST ALT Alkaline Phosphatase CK-MB (CK-2) CK-MB (CK-2) Rel Index Total Protein Albumin TSH Urine WBC (Auto) Salicylates 01/25/17 01/25/17 01/26/17 11:52 17:37 00:02 WBC RBC Hgb Hct MCV MCH RDW Plt Count Lymph % (Auto) [place] % (Auto) Eos % (Auto) [place] # Seg Neutrophils % Seg Neuts % (Manual) Lymphocytes % (Manual) Seg Neutrophils # Seg Neutrophils # Man Lymphocytes # (Manual) APTT POC ABG pH ABG pH POC ABG pCO2 POC ABG pO2 ABG pO2 ABG HCO3 ABG Base Excess ABG Hemoglobin VBG pH Oxyhemoglobin Sodium Potassium Chloride Carbon Dioxide BUN Creatinine Glucose POC Glucose 284 H 218 H 192 H Lactic Acid Calcium AST ALT Alkaline Phosphatase CK-MB (CK-2) CK-MB (CK-2) Rel Index Total Protein Albumin TSH Urine WBC (Auto) Salicylates 01/26/17 01/26/17 01/26/17 05:33 12:17 17:50 WBC RBC Hgb Hct MCV MCH RDW Plt Count Lymph % (Auto) [place] % (Auto) Eos % (Auto) [place] # Seg Neutrophils % Seg Neuts % (Manual) Lymphocytes % (Manual) Seg Neutrophils # Seg Neutrophils # Man Lymphocytes # (Manual) APTT POC ABG pH ABG pH POC ABG pCO2 POC ABG pO2 ABG pO2 ABG HCO3 ABG Base Excess ABG Hemoglobin VBG pH Oxyhemoglobin Sodium Potassium Chloride Carbon Dioxide BUN Creatinine Glucose POC Glucose 199 H 227 H 229 H Lactic Acid Calcium AST ALT Alkaline Phosphatase CK-MB (CK-2) CK-MB (CK-2) Rel Index Total Protein Albumin TSH Urine WBC (Auto) Salicylates 01/26/17 01/27/17 01/27/17 23:57 05:31 11:42 WBC RBC Hgb Hct MCV MCH RDW Plt Count Lymph % (Auto) [place] % (Auto) Eos % (Auto) [place] # Seg Neutrophils % Seg Neuts % (Manual) Lymphocytes % (Manual) Seg Neutrophils # Seg Neutrophils # Man Lymphocytes # (Manual) APTT POC ABG pH ABG pH POC ABG pCO2 POC ABG pO2 ABG pO2 ABG HCO3 ABG Base Excess ABG Hemoglobin VBG pH Oxyhemoglobin Sodium Potassium Chloride Carbon Dioxide BUN Creatinine Glucose POC Glucose 186 H 285 H 260 H Lactic Acid Calcium AST ALT Alkaline Phosphatase CK-MB (CK-2) CK-MB (CK-2) Rel Index Total Protein Albumin TSH Urine WBC (Auto) Salicylates 01/27/17 01/27/17 01/27/17 17:47 23:58 Unknown WBC 12.1 H RBC 3.28 L Hgb 8.5 L Hct 25.5 L MCV 78 L MCH 26 L RDW 16.8 H Plt Count 601 H Lymph % (Auto) [place] % (Auto) Eos % (Auto) [place] # Seg Neutrophils % Seg Neuts % (Manual) Lymphocytes % (Manual) Seg Neutrophils # Seg Neutrophils # Man Lymphocytes # (Manual) APTT POC ABG pH ABG pH POC ABG pCO2 POC ABG pO2 ABG pO2 ABG HCO3 ABG Base Excess ABG Hemoglobin VBG pH Oxyhemoglobin Sodium Potassium Chloride Carbon Dioxide BUN Creatinine Glucose POC Glucose 329 H 225 H Lactic Acid Calcium AST ALT Alkaline Phosphatase CK-MB (CK-2) CK-MB (CK-2) Rel Index Total Protein Albumin TSH Urine WBC (Auto) Salicylates 01/27/17 01/28/17 01/28/17 Unknown 03:44 03:44 WBC RBC 3.14 L Hgb 8.2 L Hct 24.1 L MCV 77 L MCH 26 L RDW 16.9 H Plt Count 567 H Lymph % (Auto) [place] % (Auto) Eos % (Auto) [place] # Seg Neutrophils % Seg Neuts % (Manual) Lymphocytes % (Manual) Seg Neutrophils # Seg Neutrophils # Man Lymphocytes # (Manual) APTT POC ABG pH ABG pH POC ABG pCO2 POC ABG pO2 ABG pO2 ABG HCO3 ABG Base Excess ABG Hemoglobin VBG pH Oxyhemoglobin Sodium 128 L Potassium 5.4 H Chloride 87.5 L Carbon Dioxide BUN 44 H 42 H Creatinine Glucose 250 H 128 H POC Glucose Lactic Acid Calcium AST ALT Alkaline Phosphatase CK-MB (CK-2) CK-MB (CK-2) Rel Index Total Protein Albumin TSH Urine WBC (Auto) Salicylates 01/28/17 01/28/17 01/28/17 11:43 16:47 17:52 WBC RBC Hgb Hct MCV MCH RDW Plt Count Lymph % (Auto) [place] % (Auto) Eos % (Auto) [place] # Seg Neutrophils % Seg Neuts % (Manual) Lymphocytes % (Manual) Seg Neutrophils # Seg Neutrophils # Man Lymphocytes # (Manual) APTT POC ABG pH ABG pH POC ABG pCO2 POC ABG pO2 ABG pO2 ABG HCO3 ABG Base Excess ABG Hemoglobin VBG pH Oxyhemoglobin Sodium Potassium Chloride Carbon Dioxide BUN Creatinine Glucose POC Glucose 351 H 249 H Lactic Acid Calcium AST ALT Alkaline Phosphatase CK-MB (CK-2) CK-MB (CK-2) Rel Index Total Protein Albumin TSH Urine WBC (Auto) > 182.0 H Salicylates 01/29/17 01/29/17 01/29/17 05:25 05:25 09:32 WBC 13.6 H RBC 3.25 L Hgb 8.3 L Hct 25.1 L MCV 77 L MCH 26 L RDW 16.8 H Plt Count 514 H Lymph % (Auto) [place] % (Auto) Eos % (Auto) [place] # Seg Neutrophils % Seg Neuts % (Manual) Lymphocytes % (Manual) Seg Neutrophils # Seg Neutrophils # Man Lymphocytes # (Manual) APTT POC ABG pH ABG pH POC ABG pCO2 POC ABG pO2 ABG pO2 ABG HCO3 ABG Base Excess ABG Hemoglobin VBG pH Oxyhemoglobin Sodium Potassium Chloride 97.8 L Carbon Dioxide BUN 34 H Creatinine Glucose 222 H POC Glucose Lactic Acid 2.50 H* Calcium AST ALT Alkaline Phosphatase CK-MB (CK-2) CK-MB (CK-2) Rel Index Total Protein Albumin TSH Urine WBC (Auto) Salicylates 01/29/17 01/29/17 01/29/17 11:56 18:11 23:55 WBC RBC Hgb Hct MCV MCH RDW Plt Count Lymph % (Auto) [place] % (Auto) Eos % (Auto) [place] # Seg Neutrophils % Seg Neuts % (Manual) Lymphocytes % (Manual) Seg Neutrophils # Seg Neutrophils # Man Lymphocytes # (Manual) APTT POC ABG pH ABG pH POC ABG pCO2 POC ABG pO2 ABG pO2 ABG HCO3 ABG Base Excess ABG Hemoglobin VBG pH Oxyhemoglobin Sodium Potassium Chloride Carbon Dioxide BUN Creatinine Glucose POC Glucose 261 H 215 H 176 H Lactic Acid Calcium AST ALT Alkaline Phosphatase CK-MB (CK-2) CK-MB (CK-2) Rel Index Total Protein Albumin TSH Urine WBC (Auto) Salicylates 01/30/17 01/30/17 01/30/17 05:31 05:31 05:34 WBC 15.2 H RBC 3.09 L Hgb 7.9 L Hct 23.9 L MCV 77 L MCH 26 L RDW 16.9 H Plt Count 569 H Lymph % (Auto) [place] % (Auto) Eos % (Auto) [place] # Seg Neutrophils % Seg Neuts % (Manual) Lymphocytes % (Manual) Seg Neutrophils # Seg Neutrophils # Man Lymphocytes # (Manual) APTT POC ABG pH ABG pH POC ABG pCO2 POC ABG pO2 ABG pO2 ABG HCO3 ABG Base Excess ABG Hemoglobin VBG pH Oxyhemoglobin Sodium Potassium Chloride Carbon Dioxide BUN 24 H Creatinine Glucose 235 H POC Glucose 243 H Lactic Acid Calcium AST ALT Alkaline Phosphatase CK-MB (CK-2) CK-MB (CK-2) Rel Index Total Protein Albumin TSH Urine WBC (Auto) Salicylates 01/30/17 01/30/17 01/30/17 11:38 17:58 23:29 WBC RBC Hgb Hct MCV MCH RDW Plt Count Lymph % (Auto) [place] % (Auto) Eos % (Auto) [place] # Seg Neutrophils % Seg Neuts % (Manual) Lymphocytes % (Manual) Seg Neutrophils # Seg Neutrophils # Man Lymphocytes # (Manual) APTT POC ABG pH ABG pH POC ABG pCO2 POC ABG pO2 ABG pO2 ABG HCO3 ABG Base Excess ABG Hemoglobin VBG pH Oxyhemoglobin Sodium Potassium Chloride Carbon Dioxide BUN Creatinine Glucose POC Glucose 298 H 208 H 245 H Lactic Acid Calcium AST ALT Alkaline Phosphatase CK-MB (CK-2) CK-MB (CK-2) Rel Index Total Protein Albumin TSH Urine WBC (Auto) Salicylates 01/31/17 01/31/17 01/31/17 04:39 04:39 05:57 WBC 11.4 H RBC 3.22 L Hgb 8.2 L Hct 24.9 L MCV 78 L MCH 25 L RDW 17.2 H Plt Count 576 H Lymph % (Auto) [place] % (Auto) Eos % (Auto) [place] # Seg Neutrophils % Seg Neuts % (Manual) Lymphocytes % (Manual) Seg Neutrophils # Seg Neutrophils # Man Lymphocytes # (Manual) APTT POC ABG pH ABG pH POC ABG pCO2 POC ABG pO2 ABG pO2 ABG HCO3 ABG Base Excess ABG Hemoglobin VBG pH Oxyhemoglobin Sodium Potassium Chloride Carbon Dioxide BUN Creatinine 0.7 L Glucose 223 H POC Glucose 264 H Lactic Acid Calcium AST ALT Alkaline Phosphatase CK-MB (CK-2) CK-MB (CK-2) Rel Index Total Protein Albumin TSH Urine WBC (Auto) Salicylates 01/31/17 01/31/17 01/31/17 12:23 17:41 18:55 WBC RBC Hgb Hct MCV MCH RDW Plt Count Lymph % (Auto) [place] % (Auto) Eos % (Auto) [place] # Seg Neutrophils % Seg Neuts % (Manual) Lymphocytes % (Manual) Seg Neutrophils # Seg Neutrophils # Man Lymphocytes # (Manual) APTT POC ABG pH ABG pH POC ABG pCO2 32.8 L POC ABG pO2 ABG pO2 ABG HCO3 ABG Base Excess ABG Hemoglobin VBG pH Oxyhemoglobin Sodium Potassium Chloride Carbon Dioxide BUN Creatinine Glucose POC Glucose 252 H 208 H Lactic Acid Calcium AST ALT Alkaline Phosphatase CK-MB (CK-2) CK-MB (CK-2) Rel Index Total Protein Albumin TSH Urine WBC (Auto) Salicylates 01/31/17 02/01/17 02/01/17 22:59 03:38 03:38 WBC RBC 2.81 L Hgb 7.4 L Hct 22.1 L MCV 79 L MCH 27 L RDW 17.0 H Plt Count 540 H Lymph % (Auto) [place] % (Auto) Eos % (Auto) [place] # Seg Neutrophils % Seg Neuts % (Manual) Lymphocytes % (Manual) Seg Neutrophils # Seg Neutrophils # Man Lymphocytes # (Manual) APTT POC ABG pH ABG pH POC ABG pCO2 POC ABG pO2 ABG pO2 ABG HCO3 ABG Base Excess ABG Hemoglobin VBG pH Oxyhemoglobin Sodium Potassium Chloride Carbon Dioxide 21 L BUN Creatinine 0.7 L Glucose POC Glucose 40 L Lactic Acid Calcium AST ALT Alkaline Phosphatase CK-MB (CK-2) CK-MB (CK-2) Rel Index Total Protein Albumin TSH Urine WBC (Auto) Salicylates 02/01/17 02/01/17 02/01/17 05:17 12:19 16:44 WBC RBC Hgb Hct MCV MCH RDW Plt Count Lymph % (Auto) [place] % (Auto) Eos % (Auto) [place] # Seg Neutrophils % Seg Neuts % (Manual) Lymphocytes % (Manual) Seg Neutrophils # Seg Neutrophils # Man Lymphocytes # (Manual) APTT POC ABG pH ABG pH POC ABG pCO2 POC ABG pO2 ABG pO2 ABG HCO3 ABG Base Excess ABG Hemoglobin VBG pH Oxyhemoglobin Sodium Potassium Chloride Carbon Dioxide BUN Creatinine Glucose POC Glucose 140 H 213 H 172 H Lactic Acid Calcium AST ALT Alkaline Phosphatase CK-MB (CK-2) CK-MB (CK-2) Rel Index Total Protein Albumin TSH Urine WBC (Auto) Salicylates 02/01/17 02/02/17 02/02/17 23:59 05:14 11:24 WBC RBC Hgb Hct MCV MCH RDW Plt Count Lymph % (Auto) [place] % (Auto) Eos % (Auto) [place] # Seg Neutrophils % Seg Neuts % (Manual) Lymphocytes % (Manual) Seg Neutrophils # Seg Neutrophils # Man Lymphocytes # (Manual) APTT POC ABG pH ABG pH POC ABG pCO2 POC ABG pO2 ABG pO2 ABG HCO3 ABG Base Excess ABG Hemoglobin VBG pH Oxyhemoglobin Sodium Potassium Chloride Carbon Dioxide BUN Creatinine Glucose POC Glucose 181 H 194 H 209 H Lactic Acid Calcium AST ALT Alkaline Phosphatase CK-MB (CK-2) CK-MB (CK-2) Rel Index Total Protein Albumin TSH Urine WBC (Auto) Salicylates 02/02/17 02/02/17 02/02/17 11:46 11:46 17:47 WBC RBC 2.94 L Hgb 7.5 L Hct 23.0 L MCV 78 L MCH 25 L RDW 16.9 H Plt Count 520 H Lymph % (Auto) [place] % (Auto) Eos % (Auto) [place] # Seg Neutrophils % Seg Neuts % (Manual) Lymphocytes % (Manual) Seg Neutrophils # Seg Neutrophils # Man Lymphocytes # (Manual) APTT POC ABG pH ABG pH POC ABG pCO2 POC ABG pO2 ABG pO2 ABG HCO3 ABG Base Excess ABG Hemoglobin VBG pH Oxyhemoglobin Sodium Potassium Chloride Carbon Dioxide BUN Creatinine 0.6 L Glucose 189 H POC Glucose 147 H Lactic Acid Calcium 8.1 L AST ALT Alkaline Phosphatase CK-MB (CK-2) CK-MB (CK-2) Rel Index Total Protein Albumin TSH Urine WBC (Auto) Salicylates 02/02/17 02/03/17 02/03/17 23:32 05:53 11:19 WBC RBC Hgb Hct MCV MCH RDW Plt Count Lymph % (Auto) [place] % (Auto) Eos % (Auto) [place] # Seg Neutrophils % Seg Neuts % (Manual) Lymphocytes % (Manual) Seg Neutrophils # Seg Neutrophils # Man Lymphocytes # (Manual) APTT POC ABG pH ABG pH POC ABG pCO2 POC ABG pO2 ABG pO2 ABG HCO3 ABG Base Excess ABG Hemoglobin VBG pH Oxyhemoglobin Sodium Potassium Chloride Carbon Dioxide BUN Creatinine Glucose POC Glucose 176 H 224 H 228 H Lactic Acid Calcium AST ALT Alkaline Phosphatase CK-MB (CK-2) CK-MB (CK-2) Rel Index Total Protein Albumin TSH Urine WBC (Auto) Salicylates 02/03/17 02/03/17 02/04/17 16:59 23:38 05:45 WBC RBC Hgb Hct MCV MCH RDW Plt Count Lymph % (Auto) [place] % (Auto) Eos % (Auto) [place] # Seg Neutrophils % Seg Neuts % (Manual) Lymphocytes % (Manual) Seg Neutrophils # Seg Neutrophils # Man Lymphocytes # (Manual) APTT POC ABG pH ABG pH POC ABG pCO2 POC ABG pO2 ABG pO2 ABG HCO3 ABG Base Excess ABG Hemoglobin VBG pH Oxyhemoglobin Sodium Potassium Chloride Carbon Dioxide BUN Creatinine Glucose POC Glucose 189 H 191 H 251 H Lactic Acid Calcium AST ALT Alkaline Phosphatase CK-MB (CK-2) CK-MB (CK-2) Rel Index Total Protein Albumin TSH Urine WBC (Auto) Salicylates 02/04/17 02/04/17 02/05/17 11:20 17:20 00:17 WBC RBC Hgb Hct MCV MCH RDW Plt Count Lymph % (Auto) [place] % (Auto) Eos % (Auto) [place] # Seg Neutrophils % Seg Neuts % (Manual) Lymphocytes % (Manual) Seg Neutrophils # Seg Neutrophils # Man Lymphocytes # (Manual) APTT POC ABG pH ABG pH POC ABG pCO2 POC ABG pO2 ABG pO2 ABG HCO3 ABG Base Excess ABG Hemoglobin VBG pH Oxyhemoglobin Sodium Potassium Chloride Carbon Dioxide BUN Creatinine Glucose POC Glucose 243 H 163 H 200 H Lactic Acid Calcium AST ALT Alkaline Phosphatase CK-MB (CK-2) CK-MB (CK-2) Rel Index Total Protein Albumin TSH Urine WBC (Auto) Salicylates 02/05/17 02/05/17 02/05/17 05:38 12:38 16:29 WBC RBC Hgb Hct MCV MCH RDW Plt Count Lymph % (Auto) [place] % (Auto) Eos % (Auto) [place] # Seg Neutrophils % Seg Neuts % (Manual) Lymphocytes % (Manual) Seg Neutrophils # Seg Neutrophils # Man Lymphocytes # (Manual) APTT POC ABG pH ABG pH POC ABG pCO2 POC ABG pO2 ABG pO2 ABG HCO3 ABG Base Excess ABG Hemoglobin VBG pH Oxyhemoglobin Sodium Potassium Chloride Carbon Dioxide BUN Creatinine Glucose POC Glucose 248 H 241 H 257 H Lactic Acid Calcium AST ALT Alkaline Phosphatase CK-MB (CK-2) CK-MB (CK-2) Rel Index Total Protein Albumin TSH Urine WBC (Auto) Salicylates 02/05/17 02/06/17 02/06/17 23:56 05:30 11:50 WBC RBC Hgb Hct MCV MCH RDW Plt Count Lymph % (Auto) [place] % (Auto) Eos % (Auto) [place] # Seg Neutrophils % Seg Neuts % (Manual) Lymphocytes % (Manual) Seg Neutrophils # Seg Neutrophils # Man Lymphocytes # (Manual) APTT POC ABG pH ABG pH POC ABG pCO2 POC ABG pO2 ABG pO2 ABG HCO3 ABG Base Excess ABG Hemoglobin VBG pH Oxyhemoglobin Sodium Potassium Chloride Carbon Dioxide BUN Creatinine Glucose POC Glucose 258 H 120 H 254 H Lactic Acid Calcium AST ALT Alkaline Phosphatase CK-MB (CK-2) CK-MB (CK-2) Rel Index Total Protein Albumin TSH Urine WBC (Auto) Salicylates 02/06/17 02/06/17 02/07/17 17:11 23:50 05:22 WBC RBC Hgb Hct MCV MCH RDW Plt Count Lymph % (Auto) [place] % (Auto) Eos % (Auto) [place] # Seg Neutrophils % Seg Neuts % (Manual) Lymphocytes % (Manual) Seg Neutrophils # Seg Neutrophils # Man Lymphocytes # (Manual) APTT POC ABG pH ABG pH POC ABG pCO2 POC ABG pO2 ABG pO2 ABG HCO3 ABG Base Excess ABG Hemoglobin VBG pH Oxyhemoglobin Sodium Potassium Chloride Carbon Dioxide BUN Creatinine Glucose POC Glucose 149 H 240 H 258 H Lactic Acid Calcium AST ALT Alkaline Phosphatase CK-MB (CK-2) CK-MB (CK-2) Rel Index Total Protein Albumin TSH Urine WBC (Auto) Salicylates 02/07/17 02/07/17 02/07/17 11:15 18:33 23:59 WBC RBC Hgb Hct MCV MCH RDW Plt Count Lymph % (Auto) [place] % (Auto) Eos % (Auto) [place] # Seg Neutrophils % Seg Neuts % (Manual) Lymphocytes % (Manual) Seg Neutrophils # Seg Neutrophils # Man Lymphocytes # (Manual) APTT POC ABG pH ABG pH POC ABG pCO2 POC ABG pO2 ABG pO2 ABG HCO3 ABG Base Excess ABG Hemoglobin VBG pH Oxyhemoglobin Sodium Potassium Chloride Carbon Dioxide BUN Creatinine Glucose POC Glucose 239 H 176 H 186 H Lactic Acid Calcium AST ALT Alkaline Phosphatase CK-MB (CK-2) CK-MB (CK-2) Rel Index Total Protein Albumin TSH Urine WBC (Auto) Salicylates 02/08/17 02/08/17 02/08/17 06:15 11:55 16:55 WBC RBC Hgb Hct MCV MCH RDW Plt Count Lymph % (Auto) [place] % (Auto) Eos % (Auto) [place] # Seg Neutrophils % Seg Neuts % (Manual) Lymphocytes % (Manual) Seg Neutrophils # Seg Neutrophils # Man Lymphocytes # (Manual) APTT POC ABG pH ABG pH POC ABG pCO2 POC ABG pO2 ABG pO2 ABG HCO3 ABG Base Excess ABG Hemoglobin VBG pH Oxyhemoglobin Sodium Potassium Chloride Carbon Dioxide BUN Creatinine Glucose POC Glucose 195 H 129 H 246 H Lactic Acid Calcium AST ALT Alkaline Phosphatase CK-MB (CK-2) CK-MB (CK-2) Rel Index Total Protein Albumin TSH Urine WBC (Auto) Salicylates 02/08/17 02/09/17 02/09/17 23:51 05:51 07:24 WBC 14.7 H RBC 3.39 L Hgb 8.9 L Hct 26.4 L MCV 78 L MCH 26 L RDW 18.4 H Plt Count 670 H Lymph % (Auto) 11.8 L [place] % (Auto) Eos % (Auto) [place] # Seg Neutrophils % 81.2 H Seg Neuts % (Manual) Lymphocytes % (Manual) Seg Neutrophils # 11.9 H Seg Neutrophils # Man Lymphocytes # (Manual) APTT POC ABG pH ABG pH POC ABG pCO2 POC ABG pO2 ABG pO2 ABG HCO3 ABG Base Excess ABG Hemoglobin VBG pH Oxyhemoglobin Sodium Potassium Chloride Carbon Dioxide BUN Creatinine Glucose POC Glucose 262 H 295 H Lactic Acid Calcium AST ALT Alkaline Phosphatase CK-MB (CK-2) CK-MB (CK-2) Rel Index Total Protein Albumin TSH Urine WBC (Auto) Salicylates 02/09/17 02/09/17 02/09/17 07:24 12:08 18:39 WBC RBC Hgb Hct MCV MCH RDW Plt Count Lymph % (Auto) [place] % (Auto) Eos % (Auto) [place] # Seg Neutrophils % Seg Neuts % (Manual) Lymphocytes % (Manual) Seg Neutrophils # Seg Neutrophils # Man Lymphocytes # (Manual) APTT POC ABG pH ABG pH POC ABG pCO2 POC ABG pO2 ABG pO2 ABG HCO3 ABG Base Excess ABG Hemoglobin VBG pH Oxyhemoglobin Sodium Potassium Chloride 95.5 L Carbon Dioxide BUN 52 H Creatinine Glucose 277 H POC Glucose 236 H 151 H Lactic Acid Calcium AST ALT Alkaline Phosphatase CK-MB (CK-2) CK-MB (CK-2) Rel Index Total Protein Albumin TSH Urine WBC (Auto) Salicylates 02/10/17 02/10/17 02/10/17 00:01 05:44 11:21 WBC RBC Hgb Hct MCV MCH RDW Plt Count Lymph % (Auto) [place] % (Auto) Eos % (Auto) [place] # Seg Neutrophils % Seg Neuts % (Manual) Lymphocytes % (Manual) Seg Neutrophils # Seg Neutrophils # Man Lymphocytes # (Manual) APTT POC ABG pH ABG pH POC ABG pCO2 POC ABG pO2 ABG pO2 ABG HCO3 ABG Base Excess ABG Hemoglobin VBG pH Oxyhemoglobin Sodium Potassium Chloride Carbon Dioxide BUN Creatinine Glucose POC Glucose 210 H 201 H 233 H Lactic Acid Calcium AST ALT Alkaline Phosphatase CK-MB (CK-2) CK-MB (CK-2) Rel Index Total Protein Albumin TSH Urine WBC (Auto) Salicylates 02/10/17 02/10/17 02/11/17 17:29 23:56 05:24 WBC RBC Hgb Hct MCV MCH RDW Plt Count Lymph % (Auto) [place] % (Auto) Eos % (Auto) [place] # Seg Neutrophils % Seg Neuts % (Manual) Lymphocytes % (Manual) Seg Neutrophils # Seg Neutrophils # Man Lymphocytes # (Manual) APTT POC ABG pH ABG pH POC ABG pCO2 POC ABG pO2 ABG pO2 ABG HCO3 ABG Base Excess ABG Hemoglobin VBG pH Oxyhemoglobin Sodium Potassium Chloride Carbon Dioxide BUN Creatinine Glucose POC Glucose 167 H 191 H 135 H Lactic Acid Calcium AST ALT Alkaline Phosphatase CK-MB (CK-2) CK-MB (CK-2) Rel Index Total Protein Albumin TSH Urine WBC (Auto) Salicylates 02/11/17 02/11/17 02/11/17 12:25 17:03 23:59 WBC RBC Hgb Hct MCV MCH RDW Plt Count Lymph % (Auto) [place] % (Auto) Eos % (Auto) [place] # Seg Neutrophils % Seg Neuts % (Manual) Lymphocytes % (Manual) Seg Neutrophils # Seg Neutrophils # Man Lymphocytes # (Manual) APTT POC ABG pH ABG pH POC ABG pCO2 POC ABG pO2 ABG pO2 ABG HCO3 ABG Base Excess ABG Hemoglobin VBG pH Oxyhemoglobin Sodium Potassium Chloride Carbon Dioxide BUN Creatinine Glucose POC Glucose 275 H 172 H 215 H Lactic Acid Calcium AST ALT Alkaline Phosphatase CK-MB (CK-2) CK-MB (CK-2) Rel Index Total Protein Albumin TSH Urine WBC (Auto) Salicylates 02/12/17 02/12/17 02/12/17 05:39 11:33 17:55 WBC RBC Hgb Hct MCV MCH RDW Plt Count Lymph % (Auto) [place] % (Auto) Eos % (Auto) [place] # Seg Neutrophils % Seg Neuts % (Manual) Lymphocytes % (Manual) Seg Neutrophils # Seg Neutrophils # Man Lymphocytes # (Manual) APTT POC ABG pH ABG pH POC ABG pCO2 POC ABG pO2 ABG pO2 ABG HCO3 ABG Base Excess ABG Hemoglobin VBG pH Oxyhemoglobin Sodium Potassium Chloride Carbon Dioxide BUN Creatinine Glucose POC Glucose 261 H 217 H 172 H Lactic Acid Calcium AST ALT Alkaline Phosphatase CK-MB (CK-2) CK-MB (CK-2) Rel Index Total Protein Albumin TSH Urine WBC (Auto) Salicylates 02/13/17 02/13/17 02/13/17 00:25 06:46 11:26 WBC RBC Hgb Hct MCV MCH RDW Plt Count Lymph % (Auto) [place] % (Auto) Eos % (Auto) [place] # Seg Neutrophils % Seg Neuts % (Manual) Lymphocytes % (Manual) Seg Neutrophils # Seg Neutrophils # Man Lymphocytes # (Manual) APTT POC ABG pH ABG pH POC ABG pCO2 POC ABG pO2 ABG pO2 ABG HCO3 ABG Base Excess ABG Hemoglobin VBG pH Oxyhemoglobin Sodium Potassium Chloride Carbon Dioxide BUN Creatinine Glucose POC Glucose 207 H 219 H 231 H Lactic Acid Calcium AST ALT Alkaline Phosphatase CK-MB (CK-2) CK-MB (CK-2) Rel Index Total Protein Albumin TSH Urine WBC (Auto) Salicylates 02/13/17 02/13/17 02/14/17 17:12 23:44 05:44 WBC RBC Hgb Hct MCV MCH RDW Plt Count Lymph % (Auto) [place] % (Auto) Eos % (Auto) [place] # Seg Neutrophils % Seg Neuts % (Manual) Lymphocytes % (Manual) Seg Neutrophils # Seg Neutrophils # Man Lymphocytes # (Manual) APTT POC ABG pH ABG pH POC ABG pCO2 POC ABG pO2 ABG pO2 ABG HCO3 ABG Base Excess ABG Hemoglobin VBG pH Oxyhemoglobin Sodium Potassium Chloride Carbon Dioxide BUN Creatinine Glucose POC Glucose 190 H 256 H 184 H Lactic Acid Calcium AST ALT Alkaline Phosphatase CK-MB (CK-2) CK-MB (CK-2) Rel Index Total Protein Albumin TSH Urine WBC (Auto) Salicylates 02/14/17 02/14/17 02/14/17 12:21 17:57 23:18 WBC RBC Hgb Hct MCV MCH RDW Plt Count Lymph % (Auto) [place] % (Auto) Eos % (Auto) [place] # Seg Neutrophils % Seg Neuts % (Manual) Lymphocytes % (Manual) Seg Neutrophils # Seg Neutrophils # Man Lymphocytes # (Manual) APTT POC ABG pH ABG pH POC ABG pCO2 POC ABG pO2 ABG pO2 ABG HCO3 ABG Base Excess ABG Hemoglobin VBG pH Oxyhemoglobin Sodium Potassium Chloride Carbon Dioxide BUN Creatinine Glucose POC Glucose 233 H 155 H 165 H Lactic Acid Calcium AST ALT Alkaline Phosphatase CK-MB (CK-2) CK-MB (CK-2) Rel Index Total Protein Albumin TSH Urine WBC (Auto) Salicylates 02/15/17 02/15/17 02/15/17 05:33 11:45 17:20 WBC RBC Hgb Hct MCV MCH RDW Plt Count Lymph % (Auto) [place] % (Auto) Eos % (Auto) [place] # Seg Neutrophils % Seg Neuts % (Manual) Lymphocytes % (Manual) Seg Neutrophils # Seg Neutrophils # Man Lymphocytes # (Manual) APTT POC ABG pH ABG pH POC ABG pCO2 POC ABG pO2 ABG pO2 ABG HCO3 ABG Base Excess ABG Hemoglobin VBG pH Oxyhemoglobin Sodium Potassium Chloride Carbon Dioxide BUN Creatinine Glucose POC Glucose 239 H 130 H 189 H Lactic Acid Calcium AST ALT Alkaline Phosphatase CK-MB (CK-2) CK-MB (CK-2) Rel Index Total Protein Albumin TSH Urine WBC (Auto) Salicylates 02/16/17 02/16/17 02/16/17 00:14 05:09 12:31 WBC RBC Hgb Hct MCV MCH RDW Plt Count Lymph % (Auto) [place] % (Auto) Eos % (Auto) [place] # Seg Neutrophils % Seg Neuts % (Manual) Lymphocytes % (Manual) Seg Neutrophils # Seg Neutrophils # Man Lymphocytes # (Manual) APTT POC ABG pH ABG pH POC ABG pCO2 POC ABG pO2 ABG pO2 ABG HCO3 ABG Base Excess ABG Hemoglobin VBG pH Oxyhemoglobin Sodium Potassium Chloride Carbon Dioxide BUN Creatinine Glucose POC Glucose 197 H 226 H 178 H Lactic Acid Calcium AST ALT Alkaline Phosphatase CK-MB (CK-2) CK-MB (CK-2) Rel Index Total Protein Albumin TSH Urine WBC (Auto) Salicylates 02/16/17 02/16/17 02/17/17 16:35 23:49 05:37 WBC RBC Hgb Hct MCV MCH RDW Plt Count Lymph % (Auto) [place] % (Auto) Eos % (Auto) [place] # Seg Neutrophils % Seg Neuts % (Manual) Lymphocytes % (Manual) Seg Neutrophils # Seg Neutrophils # Man Lymphocytes # (Manual) APTT POC ABG pH ABG pH POC ABG pCO2 POC ABG pO2 ABG pO2 ABG HCO3 ABG Base Excess ABG Hemoglobin VBG pH Oxyhemoglobin Sodium Potassium Chloride Carbon Dioxide BUN Creatinine Glucose POC Glucose 174 H 62 L 153 H Lactic Acid Calcium AST ALT Alkaline Phosphatase CK-MB (CK-2) CK-MB (CK-2) Rel Index Total Protein Albumin TSH Urine WBC (Auto) Salicylates 02/17/17 02/17/17 02/17/17 11:39 17:02 22:24 WBC RBC Hgb Hct MCV MCH RDW Plt Count Lymph % (Auto) [place] % (Auto) Eos % (Auto) [place] # Seg Neutrophils % Seg Neuts % (Manual) Lymphocytes % (Manual) Seg Neutrophils # Seg Neutrophils # Man Lymphocytes # (Manual) APTT POC ABG pH ABG pH POC ABG pCO2 POC ABG pO2 ABG pO2 ABG HCO3 ABG Base Excess ABG Hemoglobin VBG pH Oxyhemoglobin Sodium Potassium Chloride Carbon Dioxide BUN Creatinine Glucose POC Glucose 231 H 112 H 116 H Lactic Acid Calcium AST ALT Alkaline Phosphatase CK-MB (CK-2) CK-MB (CK-2) Rel Index Total Protein Albumin TSH Urine WBC (Auto) Salicylates 02/18/17 02/19/17 02/19/17 15:34 05:09 07:57 WBC RBC Hgb Hct MCV MCH RDW Plt Count Lymph % (Auto) [place] % (Auto) Eos % (Auto) [place] # Seg Neutrophils % Seg Neuts % (Manual) Lymphocytes % (Manual) Seg Neutrophils # Seg Neutrophils # Man Lymphocytes # (Manual) APTT POC ABG pH ABG pH POC ABG pCO2 POC ABG pO2 ABG pO2 ABG HCO3 ABG Base Excess ABG Hemoglobin VBG pH Oxyhemoglobin Sodium Potassium Chloride Carbon Dioxide BUN Creatinine Glucose POC Glucose 215 H 218 H 283 H Lactic Acid Calcium AST ALT Alkaline Phosphatase CK-MB (CK-2) CK-MB (CK-2) Rel Index Total Protein Albumin TSH Urine WBC (Auto) Salicylates 02/19/17 02/19/17 02/20/17 14:49 22:10 05:10 WBC RBC Hgb Hct MCV MCH RDW Plt Count Lymph % (Auto) [place] % (Auto) Eos % (Auto) [place] # Seg Neutrophils % Seg Neuts % (Manual) Lymphocytes % (Manual) Seg Neutrophils # Seg Neutrophils # Man Lymphocytes # (Manual) APTT POC ABG pH ABG pH POC ABG pCO2 POC ABG pO2 ABG pO2 ABG HCO3 ABG Base Excess ABG Hemoglobin VBG pH Oxyhemoglobin Sodium Potassium Chloride Carbon Dioxide BUN Creatinine Glucose POC Glucose 290 H 169 H 209 H Lactic Acid Calcium AST ALT Alkaline Phosphatase CK-MB (CK-2) CK-MB (CK-2) Rel Index Total Protein Albumin TSH Urine WBC (Auto) Salicylates 02/20/17 02/20/17 02/21/17 15:05 21:52 02:00 WBC RBC Hgb Hct MCV MCH RDW Plt Count Lymph % (Auto) [place] % (Auto) Eos % (Auto) [place] # Seg Neutrophils % Seg Neuts % (Manual) Lymphocytes % (Manual) Seg Neutrophils # Seg Neutrophils # Man Lymphocytes # (Manual) APTT POC ABG pH ABG pH POC ABG pCO2 POC ABG pO2 ABG pO2 ABG HCO3 ABG Base Excess ABG Hemoglobin VBG pH Oxyhemoglobin Sodium Potassium Chloride Carbon Dioxide BUN Creatinine Glucose POC Glucose 172 H 209 H 216 H Lactic Acid Calcium AST ALT Alkaline Phosphatase CK-MB (CK-2) CK-MB (CK-2) Rel Index Total Protein Albumin TSH Urine WBC (Auto) Salicylates 02/21/17 02/21/17 02/21/17 04:54 14:43 17:47 WBC RBC Hgb Hct MCV MCH RDW Plt Count Lymph % (Auto) [place] % (Auto) Eos % (Auto) [place] # Seg Neutrophils % Seg Neuts % (Manual) Lymphocytes % (Manual) Seg Neutrophils # Seg Neutrophils # Man Lymphocytes # (Manual) APTT POC ABG pH ABG pH POC ABG pCO2 POC ABG pO2 ABG pO2 ABG HCO3 ABG Base Excess ABG Hemoglobin VBG pH Oxyhemoglobin Sodium Potassium Chloride Carbon Dioxide BUN Creatinine Glucose POC Glucose 227 H 290 H 220 H Lactic Acid Calcium AST ALT Alkaline Phosphatase CK-MB (CK-2) CK-MB (CK-2) Rel Index Total Protein Albumin TSH Urine WBC (Auto) Salicylates 02/21/17 02/22/17 02/22/17 22:02 04:52 15:25 WBC RBC Hgb Hct MCV MCH RDW Plt Count Lymph % (Auto) [place] % (Auto) Eos % (Auto) [place] # Seg Neutrophils % Seg Neuts % (Manual) Lymphocytes % (Manual) Seg Neutrophils # Seg Neutrophils # Man Lymphocytes # (Manual) APTT POC ABG pH ABG pH POC ABG pCO2 POC ABG pO2 ABG pO2 ABG HCO3 ABG Base Excess ABG Hemoglobin VBG pH Oxyhemoglobin Sodium Potassium Chloride Carbon Dioxide BUN Creatinine Glucose POC Glucose 246 H 212 H 236 H Lactic Acid Calcium AST ALT Alkaline Phosphatase CK-MB (CK-2) CK-MB (CK-2) Rel Index Total Protein Albumin TSH Urine WBC (Auto) Salicylates 02/22/17 02/23/17 02/23/17 21:33 06:04 10:00 WBC RBC Hgb Hct MCV MCH RDW Plt Count Lymph % (Auto) [place] % (Auto) Eos % (Auto) [place] # Seg Neutrophils % Seg Neuts % (Manual) Lymphocytes % (Manual) Seg Neutrophils # Seg Neutrophils # Man Lymphocytes # (Manual) APTT POC ABG pH ABG pH POC ABG pCO2 POC ABG pO2 ABG pO2 ABG HCO3 ABG Base Excess ABG Hemoglobin VBG pH Oxyhemoglobin Sodium Potassium Chloride Carbon Dioxide BUN Creatinine Glucose POC Glucose 255 H 208 H 174 H Lactic Acid Calcium AST ALT Alkaline Phosphatase CK-MB (CK-2) CK-MB (CK-2) Rel Index Total Protein Albumin TSH Urine WBC (Auto) Salicylates 02/23/17 02/23/17 02/23/17 12:52 17:15 21:51 WBC RBC Hgb Hct MCV MCH RDW Plt Count Lymph % (Auto) [place] % (Auto) Eos % (Auto) [place] # Seg Neutrophils % Seg Neuts % (Manual) Lymphocytes % (Manual) Seg Neutrophils # Seg Neutrophils # Man Lymphocytes # (Manual) APTT POC ABG pH ABG pH POC ABG pCO2 POC ABG pO2 ABG pO2 ABG HCO3 ABG Base Excess ABG Hemoglobin VBG pH Oxyhemoglobin Sodium Potassium Chloride Carbon Dioxide BUN Creatinine Glucose POC Glucose 203 H 269 H 205 H Lactic Acid Calcium AST ALT Alkaline Phosphatase CK-MB (CK-2) CK-MB (CK-2) Rel Index Total Protein Albumin TSH Urine WBC (Auto) Salicylates 02/24/17 02/24/17 02/24/17 10:23 17:45 21:24 WBC RBC Hgb Hct MCV MCH RDW Plt Count Lymph % (Auto) [place] % (Auto) Eos % (Auto) [place] # Seg Neutrophils % Seg Neuts % (Manual) Lymphocytes % (Manual) Seg Neutrophils # Seg Neutrophils # Man Lymphocytes # (Manual) APTT POC ABG pH ABG pH POC ABG pCO2 POC ABG pO2 ABG pO2 ABG HCO3 ABG Base Excess ABG Hemoglobin VBG pH Oxyhemoglobin Sodium Potassium Chloride Carbon Dioxide BUN Creatinine Glucose POC Glucose 280 H 239 H 254 H Lactic Acid Calcium AST ALT Alkaline Phosphatase CK-MB (CK-2) CK-MB (CK-2) Rel Index Total Protein Albumin TSH Urine WBC (Auto) Salicylates 02/25/17 02/25/17 02/25/17 02:12 05:17 14:32 WBC RBC Hgb Hct MCV MCH RDW Plt Count Lymph % (Auto) [place] % (Auto) Eos % (Auto) [place] # Seg Neutrophils % Seg Neuts % (Manual) Lymphocytes % (Manual) Seg Neutrophils # Seg Neutrophils # Man Lymphocytes # (Manual) APTT POC ABG pH ABG pH POC ABG pCO2 POC ABG pO2 ABG pO2 ABG HCO3 ABG Base Excess ABG Hemoglobin VBG pH Oxyhemoglobin Sodium Potassium Chloride Carbon Dioxide BUN Creatinine Glucose POC Glucose 296 H 332 H 353 H Lactic Acid Calcium AST ALT Alkaline Phosphatase CK-MB (CK-2) CK-MB (CK-2) Rel Index Total Protein Albumin TSH Urine WBC (Auto) Salicylates 02/25/17 02/26/1702/26/17 22:14 00:37 05:52 WBC RBC Hgb Hct MCV MCH RDW Plt Count Lymph % (Auto) [place] % (Auto) Eos % (Auto) [place] # Seg Neutrophils % Seg Neuts % (Manual) Lymphocytes % (Manual) Seg Neutrophils # Seg Neutrophils # Man Lymphocytes # (Manual) APTT POC ABG pH ABG pH POC ABG pCO2 POC ABG pO2 ABG pO2 ABG HCO3 ABG Base Excess ABG Hemoglobin VBG pH Oxyhemoglobin Sodium Potassium Chloride Carbon Dioxide BUN Creatinine Glucose POC Glucose 201 H 233 H 269 H Lactic Acid Calcium AST ALT Alkaline Phosphatase CK-MB (CK-2) CK-MB (CK-2) Rel Index Total Protein Albumin TSH Urine WBC (Auto) Salicylates 02/26/17 02/26/17 02/26/17 11:48 13:49 21:26 WBC RBC Hgb Hct MCV MCH RDW Plt Count Lymph % (Auto) [place] % (Auto) Eos % (Auto) [place] # Seg Neutrophils % Seg Neuts % (Manual) Lymphocytes % (Manual) Seg Neutrophils # Seg Neutrophils # Man Lymphocytes # (Manual) APTT POC ABG pH ABG pH POC ABG pCO2 POC ABG pO2 ABG pO2 ABG HCO3 ABG Base Excess ABG Hemoglobin VBG pH Oxyhemoglobin Sodium Potassium Chloride Carbon Dioxide BUN Creatinine Glucose POC Glucose 333 H 322 H 244 H Lactic Acid Calcium AST ALT Alkaline Phosphatase CK-MB (CK-2) CK-MB (CK-2) Rel Index Total Protein Albumin TSH Urine WBC (Auto) Salicylates 02/27/17 02/27/17 02/27/17 05:27 13:51 21:48 WBC RBC Hgb Hct MCV MCH RDW Plt Count Lymph % (Auto) [place] % (Auto) Eos % (Auto) [place] # Seg Neutrophils % Seg Neuts % (Manual) Lymphocytes % (Manual) Seg Neutrophils # Seg Neutrophils # Man Lymphocytes # (Manual) APTT POC ABG pH ABG pH POC ABG pCO2 POC ABG pO2 ABG pO2 ABG HCO3 ABG Base Excess ABG Hemoglobin VBG pH Oxyhemoglobin Sodium Potassium Chloride Carbon Dioxide BUN Creatinine Glucose POC Glucose 217 H 239 H 254 H Lactic Acid Calcium AST ALT Alkaline Phosphatase CK-MB (CK-2) CK-MB (CK-2) Rel Index Total Protein Albumin TSH Urine WBC (Auto) Salicylates 02/28/17 02/28/17 02/28/17 05:38 11:00 19:44 WBC RBC Hgb Hct MCV MCH RDW Plt Count Lymph % (Auto) [place] % (Auto) Eos % (Auto) [place] # Seg Neutrophils % Seg Neuts % (Manual) Lymphocytes % (Manual) Seg Neutrophils # Seg Neutrophils # Man Lymphocytes # (Manual) APTT POC ABG pH ABG pH POC ABG pCO2 POC ABG pO2 ABG pO2 ABG HCO3 ABG Base Excess ABG Hemoglobin VBG pH Oxyhemoglobin Sodium Potassium Chloride Carbon Dioxide BUN Creatinine Glucose POC Glucose 325 H 203 H 116 H Lactic Acid Calcium AST ALT Alkaline Phosphatase CK-MB (CK-2) CK-MB (CK-2) Rel Index Total Protein Albumin TSH Urine WBC (Auto) Salicylates 03/01/17 03/01/17 03/01/17 00:08 05:31 12:17 WBC RBC Hgb Hct MCV MCH RDW Plt Count Lymph % (Auto) [place] % (Auto) Eos % (Auto) [place] # Seg Neutrophils % Seg Neuts % (Manual) Lymphocytes % (Manual) Seg Neutrophils # Seg Neutrophils # Man Lymphocytes # (Manual) APTT POC ABG pH ABG pH POC ABG pCO2 POC ABG pO2 ABG pO2 ABG HCO3 ABG Base Excess ABG Hemoglobin VBG pH Oxyhemoglobin Sodium Potassium Chloride Carbon Dioxide BUN Creatinine Glucose POC Glucose 202 H 183 H 184 H Lactic Acid Calcium AST ALT Alkaline Phosphatase CK-MB (CK-2) CK-MB (CK-2) Rel Index Total Protein Albumin TSH Urine WBC (Auto) Salicylates 03/02/17 03/02/17 03/02/17 00:12 05:58 18:22 WBC RBC Hgb Hct MCV MCH RDW Plt Count Lymph % (Auto) [place] % (Auto) Eos % (Auto) [place] # Seg Neutrophils % Seg Neuts % (Manual) Lymphocytes % (Manual) Seg Neutrophils # Seg Neutrophils # Man Lymphocytes # (Manual) APTT POC ABG pH ABG pH POC ABG pCO2 POC ABG pO2 ABG pO2 ABG HCO3 ABG Base Excess ABG Hemoglobin VBG pH Oxyhemoglobin Sodium Potassium Chloride Carbon Dioxide BUN Creatinine Glucose POC Glucose 117 H 176 H 156 H Lactic Acid Calcium AST ALT Alkaline Phosphatase CK-MB (CK-2) CK-MB (CK-2) Rel Index Total Protein Albumin TSH Urine WBC (Auto) Salicylates 03/02/17 03/03/17 03/03/17 23:51 05:44 11:32 WBC RBC Hgb Hct MCV MCH RDW Plt Count Lymph % (Auto) [place] % (Auto) Eos % (Auto) [place] # Seg Neutrophils % Seg Neuts % (Manual) Lymphocytes % (Manual) Seg Neutrophils # Seg Neutrophils # Man Lymphocytes # (Manual) APTT POC ABG pH ABG pH POC ABG pCO2 POC ABG pO2 ABG pO2 ABG HCO3 ABG Base Excess ABG Hemoglobin VBG pH Oxyhemoglobin Sodium Potassium Chloride Carbon Dioxide BUN Creatinine Glucose POC Glucose 211 H 117 H 133 H Lactic Acid Calcium AST ALT Alkaline Phosphatase CK-MB (CK-2) CK-MB (CK-2) Rel Index Total Protein Albumin TSH Urine WBC (Auto) Salicylates 03/03/17 03/03/17 03/04/17 17:43 23:17 05:30 WBC RBC Hgb Hct MCV MCH RDW Plt Count Lymph % (Auto) [place] % (Auto) Eos % (Auto) [place] # Seg Neutrophils % Seg Neuts % (Manual) Lymphocytes % (Manual) Seg Neutrophils # Seg Neutrophils # Man Lymphocytes # (Manual) APTT POC ABG pH ABG pH POC ABG pCO2 POC ABG pO2 ABG pO2 ABG HCO3 ABG Base Excess ABG Hemoglobin VBG pH Oxyhemoglobin Sodium Potassium Chloride Carbon Dioxide BUN Creatinine Glucose POC Glucose 206 H 170 H 126 H Lactic Acid Calcium AST ALT Alkaline Phosphatase CK-MB (CK-2) CK-MB (CK-2) Rel Index Total Protein Albumin TSH Urine WBC (Auto) Salicylates 03/04/17 03/04/17 03/05/17 12:17 17:27 05:20 WBC RBC Hgb Hct MCV MCH RDW Plt Count Lymph % (Auto) [place] % (Auto) Eos % (Auto) [place] # Seg Neutrophils % Seg Neuts % (Manual) Lymphocytes % (Manual) Seg Neutrophils # Seg Neutrophils # Man Lymphocytes # (Manual) APTT POC ABG pH ABG pH POC ABG pCO2 POC ABG pO2 ABG pO2 ABG HCO3 ABG Base Excess ABG Hemoglobin VBG pH Oxyhemoglobin Sodium Potassium Chloride Carbon Dioxide BUN Creatinine Glucose POC Glucose 135 H 121 H 185 H Lactic Acid Calcium AST ALT Alkaline Phosphatase CK-MB (CK-2) CK-MB (CK-2) Rel Index Total Protein Albumin TSH Urine WBC (Auto) Salicylates 03/05/17 03/06/17 03/06/17 11:50 11:52 17:34 WBC RBC Hgb Hct MCV MCH RDW Plt Count Lymph % (Auto) [place] % (Auto) Eos % (Auto) [place] # Seg Neutrophils % Seg Neuts % (Manual) Lymphocytes % (Manual) Seg Neutrophils # Seg Neutrophils # Man Lymphocytes # (Manual) APTT POC ABG pH ABG pH POC ABG pCO2 POC ABG pO2 ABG pO2 ABG HCO3 ABG Base Excess ABG Hemoglobin VBG pH Oxyhemoglobin Sodium Potassium Chloride Carbon Dioxide BUN Creatinine Glucose POC Glucose 116 H 133 H 181 H Lactic Acid Calcium AST ALT Alkaline Phosphatase CK-MB (CK-2) CK-MB (CK-2) Rel Index Total Protein Albumin TSH Urine WBC (Auto) Salicylates 03/07/17 03/07/17 03/07/17 05:21 11:36 17:49 WBC RBC Hgb Hct MCV MCH RDW Plt Count Lymph % (Auto) [place] % (Auto) Eos % (Auto) [place] # Seg Neutrophils % Seg Neuts % (Manual) Lymphocytes % (Manual) Seg Neutrophils # Seg Neutrophils # Man Lymphocytes # (Manual) APTT POC ABG pH ABG pH POC ABG pCO2 POC ABG pO2 ABG pO2 ABG HCO3 ABG Base Excess ABG Hemoglobin VBG pH Oxyhemoglobin Sodium Potassium Chloride Carbon Dioxide BUN Creatinine Glucose POC Glucose 159 H 137 H 158 H Lactic Acid Calcium AST ALT Alkaline Phosphatase CK-MB (CK-2) CK-MB (CK-2) Rel Index Total Protein Albumin TSH Urine WBC (Auto) Salicylates 03/08/17 03/08/17 03/08/17 05:51 13:58 23:50 WBC RBC Hgb Hct MCV MCH RDW Plt Count Lymph % (Auto) [place] % (Auto) Eos % (Auto) [place] # Seg Neutrophils % Seg Neuts % (Manual) Lymphocytes % (Manual) Seg Neutrophils # Seg Neutrophils # Man Lymphocytes # (Manual) APTT POC ABG pH ABG pH POC ABG pCO2 POC ABG pO2 ABG pO2 ABG HCO3 ABG Base Excess ABG Hemoglobin VBG pH Oxyhemoglobin Sodium Potassium Chloride Carbon Dioxide BUN Creatinine Glucose POC Glucose 122 H 182 H 114 H Lactic Acid Calcium AST ALT Alkaline Phosphatase CK-MB (CK-2) CK-MB (CK-2) Rel Index Total Protein Albumin TSH Urine WBC (Auto) Salicylates 03/09/17 03/09/17 03/09/17 05:21 05:51 05:51 WBC RBC 3.61 L Hgb 9.5 L Hct 28.3 L MCV 79 L MCH 26 L RDW 17.8 H Plt Count Lymph % (Auto) [place] % (Auto) Eos % (Auto) [place] # Seg Neutrophils % Seg Neuts % (Manual) Lymphocytes % (Manual) Seg Neutrophils # Seg Neutrophils # Man Lymphocytes # (Manual) APTT POC ABG pH ABG pH POC ABG pCO2 POC ABG pO2 ABG pO2 ABG HCO3 ABG Base Excess ABG Hemoglobin VBG pH Oxyhemoglobin Sodium 134 L Potassium Chloride 95.5 L Carbon Dioxide BUN 33 H Creatinine 0.5 L Glucose 143 H POC Glucose 153 H Lactic Acid Calcium AST ALT Alkaline Phosphatase CK-MB (CK-2) CK-MB (CK-2) Rel Index Total Protein Albumin TSH Urine WBC (Auto) Salicylates 03/09/17 03/09/17 03/09/17 12:10 18:13 21:00 WBC RBC Hgb Hct MCV MCH RDW Plt Count Lymph % (Auto) [place] % (Auto) Eos % (Auto) [place] # Seg Neutrophils % Seg Neuts % (Manual) Lymphocytes % (Manual) Seg Neutrophils # Seg Neutrophils # Man Lymphocytes # (Manual) APTT POC ABG pH ABG pH POC ABG pCO2 POC ABG pO2 ABG pO2 ABG HCO3 ABG Base Excess ABG Hemoglobin VBG pH Oxyhemoglobin Sodium Potassium Chloride Carbon Dioxide BUN Creatinine Glucose POC Glucose 203 H 221 H 198 H Lactic Acid Calcium AST ALT Alkaline Phosphatase CK-MB (CK-2) CK-MB (CK-2) Rel Index Total Protein Albumin TSH Urine WBC (Auto) Salicylates 03/09/17 03/10/17 03/10/17 23:58 05:09 05:09 WBC RBC Hgb 10.3 L Hct 30.5 L MCV 78 L MCH 26 L RDW 17.9 H Plt Count Lymph % (Auto) [place] % (Auto) 10.0 H Eos % (Auto) 6.0 H [place] # Seg Neutrophils % Seg Neuts % (Manual) Lymphocytes % (Manual) Seg Neutrophils # Seg Neutrophils # Man Lymphocytes # (Manual) APTT POC ABG pH ABG pH POC ABG pCO2 POC ABG pO2 ABG pO2 ABG HCO3 ABG Base Excess ABG Hemoglobin VBG pH Oxyhemoglobin Sodium 132 L Potassium Chloride 92.2 L Carbon Dioxide BUN 33 H Creatinine 0.5 L Glucose 50 L POC Glucose 167 H Lactic Acid Calcium AST ALT Alkaline Phosphatase CK-MB (CK-2) CK-MB (CK-2) Rel Index Total Protein Albumin TSH Urine WBC (Auto) Salicylates 03/10/17 03/10/17 03/10/17 05:33 05:34 11:48 WBC RBC Hgb Hct MCV MCH RDW Plt Count Lymph % (Auto) [place] % (Auto) Eos % (Auto) [place] # Seg Neutrophils % Seg Neuts % (Manual) Lymphocytes % (Manual) Seg Neutrophils # Seg Neutrophils # Man Lymphocytes # (Manual) APTT POC ABG pH ABG pH POC ABG pCO2 POC ABG pO2 ABG pO2 ABG HCO3 ABG Base Excess ABG Hemoglobin VBG pH Oxyhemoglobin Sodium Potassium Chloride Carbon Dioxide BUN Creatinine Glucose POC Glucose 52 L 53 L 148 H Lactic Acid Calcium AST ALT Alkaline Phosphatase CK-MB (CK-2) CK-MB (CK-2) Rel Index Total Protein Albumin TSH Urine WBC (Auto) Salicylates 03/10/17 03/10/17 03/11/17 17:53 23:47 05:18 WBC RBC Hgb Hct MCV MCH RDW Plt Count Lymph % (Auto) [place] % (Auto) Eos % (Auto) [place] # Seg Neutrophils % Seg Neuts % (Manual) Lymphocytes % (Manual) Seg Neutrophils # Seg Neutrophils # Man Lymphocytes # (Manual) APTT POC ABG pH ABG pH POC ABG pCO2 POC ABG pO2 ABG pO2 ABG HCO3 ABG Base Excess ABG Hemoglobin VBG pH Oxyhemoglobin Sodium Potassium Chloride Carbon Dioxide BUN Creatinine Glucose POC Glucose 189 H 398 H 126 H Lactic Acid Calcium AST ALT Alkaline Phosphatase CK-MB (CK-2) CK-MB (CK-2) Rel Index Total Protein Albumin TSH Urine WBC (Auto) Salicylates 03/11/17 03/11/17 03/11/17 11:53 17:30 23:10 WBC RBC Hgb Hct MCV MCH RDW Plt Count Lymph % (Auto) [place] % (Auto) Eos % (Auto) [place] # Seg Neutrophils % Seg Neuts % (Manual) Lymphocytes % (Manual) Seg Neutrophils # Seg Neutrophils # Man Lymphocytes # (Manual) APTT POC ABG pH ABG pH POC ABG pCO2 POC ABG pO2 ABG pO2 ABG HCO3 ABG Base Excess ABG Hemoglobin VBG pH Oxyhemoglobin Sodium Potassium Chloride Carbon Dioxide BUN Creatinine Glucose POC Glucose 198 H 142 H 244 H Lactic Acid Calcium AST ALT Alkaline Phosphatase CK-MB (CK-2) CK-MB (CK-2) Rel Index Total Protein Albumin TSH Urine WBC (Auto) Salicylates 03/12/17 03/12/17 03/12/17 04:36 11:49 17:23 WBC RBC Hgb Hct MCV MCH RDW Plt Count Lymph % (Auto) [place] % (Auto) Eos % (Auto) [place] # Seg Neutrophils % Seg Neuts % (Manual) Lymphocytes % (Manual) Seg Neutrophils # Seg Neutrophils # Man Lymphocytes # (Manual) APTT POC ABG pH ABG pH POC ABG pCO2 POC ABG pO2 ABG pO2 ABG HCO3 ABG Base Excess ABG Hemoglobin VBG pH Oxyhemoglobin Sodium Potassium Chloride Carbon Dioxide BUN Creatinine Glucose POC Glucose 205 H 197 H 209 H Lactic Acid Calcium AST ALT Alkaline Phosphatase CK-MB (CK-2) CK-MB (CK-2) Rel Index Total Protein Albumin TSH Urine WBC (Auto) Salicylates 03/12/17 03/13/17 03/13/17 23:51 05:32 11:43 WBC RBC Hgb Hct MCV MCH RDW Plt Count Lymph % (Auto) [place] % (Auto) Eos % (Auto) [place] # Seg Neutrophils % Seg Neuts % (Manual) Lymphocytes % (Manual) Seg Neutrophils # Seg Neutrophils # Man Lymphocytes # (Manual) APTT POC ABG pH ABG pH POC ABG pCO2 POC ABG pO2 ABG pO2 ABG HCO3 ABG Base Excess ABG Hemoglobin VBG pH Oxyhemoglobin Sodium Potassium Chloride Carbon Dioxide BUN Creatinine Glucose POC Glucose 210 H 154 H 164 H Lactic Acid Calcium AST ALT Alkaline Phosphatase CK-MB (CK-2) CK-MB (CK-2) Rel Index Total Protein Albumin TSH Urine WBC (Auto) Salicylates 03/13/17 03/13/17 03/14/17 17:11 23:26 05:42 WBC RBC Hgb Hct MCV MCH RDW Plt Count Lymph % (Auto) [place] % (Auto) Eos % (Auto) [place] # Seg Neutrophils % Seg Neuts % (Manual) Lymphocytes % (Manual) Seg Neutrophils # Seg Neutrophils # Man Lymphocytes # (Manual) APTT POC ABG pH ABG pH POC ABG pCO2 POC ABG pO2 ABG pO2 ABG HCO3 ABG Base Excess ABG Hemoglobin VBG pH Oxyhemoglobin Sodium Potassium Chloride Carbon Dioxide BUN Creatinine Glucose POC Glucose 195 H 240 H 230 H Lactic Acid Calcium AST ALT Alkaline Phosphatase CK-MB (CK-2) CK-MB (CK-2) Rel Index Total Protein Albumin TSH Urine WBC (Auto) Salicylates 03/14/17 03/14/17 03/14/17 14:04 17:34 23:42 WBC RBC Hgb Hct MCV MCH RDW Plt Count Lymph % (Auto) [place] % (Auto) Eos % (Auto) [place] # Seg Neutrophils % Seg Neuts % (Manual) Lymphocytes % (Manual) Seg Neutrophils # Seg Neutrophils # Man Lymphocytes # (Manual) APTT POC ABG pH ABG pH POC ABG pCO2 POC ABG pO2 ABG pO2 ABG HCO3 ABG Base Excess ABG Hemoglobin VBG pH Oxyhemoglobin Sodium Potassium Chloride Carbon Dioxide BUN Creatinine Glucose POC Glucose 227 H 186 H 225 H Lactic Acid Calcium AST ALT Alkaline Phosphatase CK-MB (CK-2) CK-MB (CK-2) Rel Index Total Protein Albumin TSH Urine WBC (Auto) Salicylates 03/15/17 03/15/17 03/15/17 05:21 17:13 21:37 WBC RBC Hgb Hct MCV MCH RDW Plt Count Lymph % (Auto) [place] % (Auto) Eos % (Auto) [place] # Seg Neutrophils % Seg Neuts % (Manual) Lymphocytes % (Manual) Seg Neutrophils # Seg Neutrophils # Man Lymphocytes # (Manual) APTT POC ABG pH ABG pH POC ABG pCO2 POC ABG pO2 ABG pO2 ABG HCO3 ABG Base Excess ABG Hemoglobin VBG pH Oxyhemoglobin Sodium Potassium Chloride Carbon Dioxide BUN Creatinine Glucose POC Glucose 244 H 203 H 216 H Lactic Acid Calcium AST ALT Alkaline Phosphatase CK-MB (CK-2) CK-MB (CK-2) Rel Index Total Protein Albumin TSH Urine WBC (Auto) Salicylates 03/16/17 03/16/17 03/16/17 05:52 18:07 21:54 WBC RBC Hgb Hct MCV MCH RDW Plt Count Lymph % (Auto) [place] % (Auto) Eos % (Auto) [place] # Seg Neutrophils % Seg Neuts % (Manual) Lymphocytes % (Manual) Seg Neutrophils # Seg Neutrophils # Man Lymphocytes # (Manual) APTT POC ABG pH ABG pH POC ABG pCO2 POC ABG pO2 ABG pO2 ABG HCO3 ABG Base Excess ABG Hemoglobin VBG pH Oxyhemoglobin Sodium Potassium Chloride Carbon Dioxide BUN Creatinine Glucose POC Glucose 248 H 254 H 244 H Lactic Acid Calcium AST ALT Alkaline Phosphatase CK-MB (CK-2) CK-MB (CK-2) Rel Index Total Protein Albumin TSH Urine WBC (Auto) Salicylates 03/17/17 03/17/17 03/17/17 07:07 07:42 07:43 WBC RBC Hgb 9.7 L Hct 29.1 L MCV 78 L MCH 26 L RDW 17.4 H Plt Count Lymph % (Auto) [place] % (Auto) Eos % (Auto) [place] # Seg Neutrophils % Seg Neuts % (Manual) Lymphocytes % (Manual) Seg Neutrophils # Seg Neutrophils # Man Lymphocytes # (Manual) APTT POC ABG pH ABG pH POC ABG pCO2 POC ABG pO2 ABG pO2 ABG HCO3 ABG Base Excess ABG Hemoglobin VBG pH Oxyhemoglobin Sodium Potassium Chloride 96.6 L Carbon Dioxide BUN 30 H Creatinine 0.5 L Glucose 251 H POC Glucose 222 H Lactic Acid Calcium AST ALT Alkaline Phosphatase CK-MB (CK-2) CK-MB (CK-2) Rel Index Total Protein Albumin TSH Urine WBC (Auto) Salicylates 03/17/17 03/17/17 03/18/17 14:08 21:20 14:24 WBC RBC Hgb Hct MCV MCH RDW Plt Count Lymph % (Auto) [place] % (Auto) Eos % (Auto) [place] # Seg Neutrophils % Seg Neuts % (Manual) Lymphocytes % (Manual) Seg Neutrophils # Seg Neutrophils # Man Lymphocytes # (Manual) APTT POC ABG pH ABG pH POC ABG pCO2 POC ABG pO2 ABG pO2 ABG HCO3 ABG Base Excess ABG Hemoglobin VBG pH Oxyhemoglobin Sodium Potassium Chloride Carbon Dioxide BUN Creatinine Glucose POC Glucose 281 H 239 H 195 H Lactic Acid Calcium AST ALT Alkaline Phosphatase CK-MB (CK-2) CK-MB (CK-2) Rel Index Total Protein Albumin TSH Urine WBC (Auto) Salicylates 03/18/17 03/19/17 03/19/17 21:37 04:57 14:23 WBC RBC Hgb Hct MCV MCH RDW Plt Count Lymph % (Auto) [place] % (Auto) Eos % (Auto) [place] # Seg Neutrophils % Seg Neuts % (Manual) Lymphocytes % (Manual) Seg Neutrophils # Seg Neutrophils # Man Lymphocytes # (Manual) APTT POC ABG pH ABG pH POC ABG pCO2 POC ABG pO2 ABG pO2 ABG HCO3 ABG Base Excess ABG Hemoglobin VBG pH Oxyhemoglobin Sodium Potassium Chloride Carbon Dioxide BUN Creatinine Glucose POC Glucose 227 H 205 H 277 H Lactic Acid Calcium AST ALT Alkaline Phosphatase CK-MB (CK-2) CK-MB (CK-2) Rel Index Total Protein Albumin TSH Urine WBC (Auto) Salicylates 03/19/17 03/19/17 03/20/17 20:31 21:47 04:55 WBC RBC Hgb Hct MCV MCH RDW Plt Count Lymph % (Auto) [place] % (Auto) Eos % (Auto) [place] # Seg Neutrophils % Seg Neuts % (Manual) Lymphocytes % (Manual) Seg Neutrophils # Seg Neutrophils # Man Lymphocytes # (Manual) APTT POC ABG pH ABG pH POC ABG pCO2 POC ABG pO2 ABG pO2 ABG HCO3 ABG Base Excess ABG Hemoglobin VBG pH Oxyhemoglobin Sodium Potassium Chloride Carbon Dioxide BUN Creatinine Glucose POC Glucose 256 H 270 H 202 H Lactic Acid Calcium AST ALT Alkaline Phosphatase CK-MB (CK-2) CK-MB (CK-2) Rel Index Total Protein Albumin TSH Urine WBC (Auto) Salicylates 03/20/17 03/20/17 03/21/17 14:09 21:40 05:09 WBC RBC Hgb Hct MCV MCH RDW Plt Count Lymph % (Auto) [place] % (Auto) Eos % (Auto) [place] # Seg Neutrophils % Seg Neuts % (Manual) Lymphocytes % (Manual) Seg Neutrophils # Seg Neutrophils # Man Lymphocytes # (Manual) APTT POC ABG pH ABG pH POC ABG pCO2 POC ABG pO2 ABG pO2 ABG HCO3 ABG Base Excess ABG Hemoglobin VBG pH Oxyhemoglobin Sodium Potassium Chloride Carbon Dioxide BUN Creatinine Glucose POC Glucose 200 H 214 H 233 H Lactic Acid Calcium AST ALT Alkaline Phosphatase CK-MB (CK-2) CK-MB (CK-2) Rel Index Total Protein Albumin TSH Urine WBC (Auto) Salicylates 03/21/17 03/21/17 03/22/17 14:06 21:26 05:43 WBC RBC Hgb Hct MCV MCH RDW Plt Count Lymph % (Auto) [place] % (Auto) Eos % (Auto) [place] # Seg Neutrophils % Seg Neuts % (Manual) Lymphocytes % (Manual) Seg Neutrophils # Seg Neutrophils # Man Lymphocytes # (Manual) APTT POC ABG pH ABG pH POC ABG pCO2 POC ABG pO2 ABG pO2 ABG HCO3 ABG Base Excess ABG Hemoglobin VBG pH Oxyhemoglobin Sodium Potassium Chloride Carbon Dioxide BUN Creatinine Glucose POC Glucose 250 H 155 H 251 H Lactic Acid Calcium AST ALT Alkaline Phosphatase CK-MB (CK-2) CK-MB (CK-2) Rel Index Total Protein Albumin TSH Urine WBC (Auto) Salicylates 03/22/17 03/22/17 03/23/17 13:46 21:16 00:23 WBC RBC Hgb Hct MCV MCH RDW Plt Count Lymph % (Auto) [place] % (Auto) Eos % (Auto) [place] # Seg Neutrophils % Seg Neuts % (Manual) Lymphocytes % (Manual) Seg Neutrophils # Seg Neutrophils # Man Lymphocytes # (Manual) APTT POC ABG pH ABG pH POC ABG pCO2 POC ABG pO2 ABG pO2 ABG HCO3 ABG Base Excess ABG Hemoglobin VBG pH Oxyhemoglobin Sodium Potassium Chloride Carbon Dioxide BUN Creatinine Glucose POC Glucose 269 H 197 H 126 H Lactic Acid Calcium AST ALT Alkaline Phosphatase CK-MB (CK-2) CK-MB (CK-2) Rel Index Total Protein Albumin TSH Urine WBC (Auto) Salicylates 03/23/17 03/23/17 03/23/17 05:39 14:06 21:39 WBC RBC Hgb Hct MCV MCH RDW Plt Count Lymph % (Auto) [place] % (Auto) Eos % (Auto) [place] # Seg Neutrophils % Seg Neuts % (Manual) Lymphocytes % (Manual) Seg Neutrophils # Seg Neutrophils # Man Lymphocytes # (Manual) APTT POC ABG pH ABG pH POC ABG pCO2 POC ABG pO2 ABG pO2 ABG HCO3 ABG Base Excess ABG Hemoglobin VBG pH Oxyhemoglobin Sodium Potassium Chloride Carbon Dioxide BUN Creatinine Glucose POC Glucose 234 H 241 H 248 H Lactic Acid Calcium AST ALT Alkaline Phosphatase CK-MB (CK-2) CK-MB (CK-2) Rel Index Total Protein Albumin TSH Urine WBC (Auto) Salicylates 03/24/17 03/24/17 03/25/17 05:06 21:46 05:38 WBC RBC Hgb Hct MCV MCH RDW Plt Count Lymph % (Auto) [place] % (Auto) Eos % (Auto) [place] # Seg Neutrophils % Seg Neuts % (Manual) Lymphocytes % (Manual) Seg Neutrophils # Seg Neutrophils # Man Lymphocytes # (Manual) APTT POC ABG pH ABG pH POC ABG pCO2 POC ABG pO2 ABG pO2 ABG HCO3 ABG Base Excess ABG Hemoglobin VBG pH Oxyhemoglobin Sodium Potassium Chloride Carbon Dioxide BUN Creatinine Glucose POC Glucose 232 H 276 H 242 H Lactic Acid Calcium AST ALT Alkaline Phosphatase CK-MB (CK-2) CK-MB (CK-2) Rel Index Total Protein Albumin TSH Urine WBC (Auto) Salicylates 03/25/17 03/25/17 03/26/17 14:30 23:14 13:53 WBC RBC Hgb Hct MCV MCH RDW Plt Count Lymph % (Auto) [place] % (Auto) Eos % (Auto) [place] # Seg Neutrophils % Seg Neuts % (Manual) Lymphocytes % (Manual) Seg Neutrophils # Seg Neutrophils # Man Lymphocytes # (Manual) APTT POC ABG pH ABG pH POC ABG pCO2 POC ABG pO2 ABG pO2 ABG HCO3 ABG Base Excess ABG Hemoglobin VBG pH Oxyhemoglobin Sodium Potassium Chloride Carbon Dioxide BUN Creatinine Glucose POC Glucose 246 H 208 H 195 H Lactic Acid Calcium AST ALT Alkaline Phosphatase CK-MB (CK-2) CK-MB (CK-2) Rel Index Total Protein Albumin TSH Urine WBC (Auto) Salicylates 03/26/17 03/27/17 03/27/17 21:58 05:18 14:57 WBC RBC Hgb Hct MCV MCH RDW Plt Count Lymph % (Auto) [place] % (Auto) Eos % (Auto) [place] # Seg Neutrophils % Seg Neuts % (Manual) Lymphocytes % (Manual) Seg Neutrophils # Seg Neutrophils # Man Lymphocytes # (Manual) APTT POC ABG pH ABG pH POC ABG pCO2 POC ABG pO2 ABG pO2 ABG HCO3 ABG Base Excess ABG Hemoglobin VBG pH Oxyhemoglobin Sodium Potassium Chloride Carbon Dioxide BUN Creatinine Glucose POC Glucose 241 H 199 H 269 H Lactic Acid Calcium AST ALT Alkaline Phosphatase CK-MB (CK-2) CK-MB (CK-2) Rel Index Total Protein Albumin TSH Urine WBC (Auto) Salicylates 03/27/17 03/28/17 03/28/17 21:33 13:52 21:29 WBC RBC Hgb Hct MCV MCH RDW Plt Count Lymph % (Auto) [place] % (Auto) Eos % (Auto) [place] # Seg Neutrophils % Seg Neuts % (Manual) Lymphocytes % (Manual) Seg Neutrophils # Seg Neutrophils # Man Lymphocytes # (Manual) APTT POC ABG pH ABG pH POC ABG pCO2 POC ABG pO2 ABG pO2 ABG HCO3 ABG Base Excess ABG Hemoglobin VBG pH Oxyhemoglobin Sodium Potassium Chloride Carbon Dioxide BUN Creatinine Glucose POC Glucose 214 H 243 H 286 H Lactic Acid Calcium AST ALT Alkaline Phosphatase CK-MB (CK-2) CK-MB (CK-2) Rel Index Total Protein Albumin TSH Urine WBC (Auto) Salicylates 03/29/17 03/29/17 03/29/17 04:32 04:32 13:58 WBC RBC Hgb 10.6 L Hct 32.9 L MCV 78 L MCH 25 L RDW 17.6 H Plt Count Lymph % (Auto) 38.0 H [place] % (Auto) 9.7 H Eos % (Auto) [place] # Seg Neutrophils % Seg Neuts % (Manual) Lymphocytes % (Manual) Seg Neutrophils # Seg Neutrophils # Man Lymphocytes # (Manual) APTT POC ABG pH ABG pH POC ABG pCO2 POC ABG pO2 ABG pO2 ABG HCO3 ABG Base Excess ABG Hemoglobin VBG pH Oxyhemoglobin Sodium 132 L Potassium Chloride 94.0 L Carbon Dioxide BUN 28 H Creatinine 0.5 L Glucose 236 H POC Glucose 171 H Lactic Acid Calcium AST ALT 71 H Alkaline Phosphatase 391 H CK-MB (CK-2) CK-MB (CK-2) Rel Index Total Protein 8.3 H Albumin 2.9 L TSH Urine WBC (Auto) Salicylates 03/29/17 03/30/17 03/30/17 20:59 06:07 11:52 WBC RBC Hgb Hct MCV MCH RDW Plt Count Lymph % (Auto) [place] % (Auto) Eos % (Auto) [place] # Seg Neutrophils % Seg Neuts % (Manual) Lymphocytes % (Manual) Seg Neutrophils # Seg Neutrophils # Man Lymphocytes # (Manual) APTT POC ABG pH ABG pH POC ABG pCO2 POC ABG pO2 ABG pO2 ABG HCO3 ABG Base Excess ABG Hemoglobin VBG pH Oxyhemoglobin Sodium Potassium Chloride Carbon Dioxide BUN Creatinine Glucose POC Glucose 215 H 259 H 197 H Lactic Acid Calcium AST ALT Alkaline Phosphatase CK-MB (CK-2) CK-MB (CK-2) Rel Index Total Protein Albumin TSH Urine WBC (Auto) Salicylates 03/30/17 03/31/17 03/31/17 21:34 05:42 14:34 WBC RBC Hgb Hct MCV MCH RDW Plt Count Lymph % (Auto) [place] % (Auto) Eos % (Auto) [place] # Seg Neutrophils % Seg Neuts % (Manual) Lymphocytes % (Manual) Seg Neutrophils # Seg Neutrophils # Man Lymphocytes # (Manual) APTT POC ABG pH ABG pH POC ABG pCO2 POC ABG pO2 ABG pO2 ABG HCO3 ABG Base Excess ABG Hemoglobin VBG pH Oxyhemoglobin Sodium Potassium Chloride Carbon Dioxide BUN Creatinine Glucose POC Glucose 207 H 184 H 213 H Lactic Acid Calcium AST ALT Alkaline Phosphatase CK-MB (CK-2) CK-MB (CK-2) Rel Index Total Protein Albumin TSH Urine WBC (Auto) Salicylates 03/31/17 04/01/17 04/01/17 21:32 05:53 13:48 WBC RBC Hgb Hct MCV MCH RDW Plt Count Lymph % (Auto) [place] % (Auto) Eos % (Auto) [place] # Seg Neutrophils % Seg Neuts % (Manual) Lymphocytes % (Manual) Seg Neutrophils # Seg Neutrophils # Man Lymphocytes # (Manual) APTT POC ABG pH ABG pH POC ABG pCO2 POC ABG pO2 ABG pO2 ABG HCO3 ABG Base Excess ABG Hemoglobin VBG pH Oxyhemoglobin Sodium Potassium Chloride Carbon Dioxide BUN Creatinine Glucose POC Glucose 249 H 225 H 256 H Lactic Acid Calcium AST ALT Alkaline Phosphatase CK-MB (CK-2) CK-MB (CK-2) Rel Index Total Protein Albumin TSH Urine WBC (Auto) Salicylates 04/01/17 04/02/17 04/02/17 21:34 05:32 14:05 WBC RBC Hgb Hct MCV MCH RDW Plt Count Lymph % (Auto) [place] % (Auto) Eos % (Auto) [place] # Seg Neutrophils % Seg Neuts % (Manual) Lymphocytes % (Manual) Seg Neutrophils # Seg Neutrophils # Man Lymphocytes # (Manual) APTT POC ABG pH ABG pH POC ABG pCO2 POC ABG pO2 ABG pO2 ABG HCO3 ABG Base Excess ABG Hemoglobin VBG pH Oxyhemoglobin Sodium Potassium Chloride Carbon Dioxide BUN Creatinine Glucose POC Glucose 292 H 220 H 187 H Lactic Acid Calcium AST ALT Alkaline Phosphatase CK-MB (CK-2) CK-MB (CK-2) Rel Index Total Protein Albumin TSH Urine WBC (Auto) Salicylates 04/02/17 04/03/17 04/03/17 21:57 04:49 14:12 WBC RBC Hgb Hct MCV MCH RDW Plt Count Lymph % (Auto) [place] % (Auto) Eos % (Auto) [place] # Seg Neutrophils % Seg Neuts % (Manual) Lymphocytes % (Manual) Seg Neutrophils # Seg Neutrophils # Man Lymphocytes # (Manual) APTT POC ABG pH ABG pH POC ABG pCO2 POC ABG pO2 ABG pO2 ABG HCO3 ABG Base Excess ABG Hemoglobin VBG pH Oxyhemoglobin Sodium Potassium Chloride Carbon Dioxide BUN Creatinine Glucose POC Glucose 285 H 256 H 197 H Lactic Acid Calcium AST ALT Alkaline Phosphatase CK-MB (CK-2) CK-MB (CK-2) Rel Index Total Protein Albumin TSH Urine WBC (Auto) Salicylates 04/03/17 04/04/17 04/04/17 21:11 05:20 13:18 WBC RBC Hgb Hct MCV MCH RDW Plt Count Lymph % (Auto) [place] % (Auto) Eos % (Auto) [place] # Seg Neutrophils % Seg Neuts % (Manual) Lymphocytes % (Manual) Seg Neutrophils # Seg Neutrophils # Man Lymphocytes # (Manual) APTT POC ABG pH ABG pH POC ABG pCO2 POC ABG pO2 ABG pO2 ABG HCO3 ABG Base Excess ABG Hemoglobin VBG pH Oxyhemoglobin Sodium Potassium Chloride Carbon Dioxide BUN Creatinine Glucose POC Glucose 166 H 228 H 252 H Lactic Acid Calcium AST ALT Alkaline Phosphatase CK-MB (CK-2) CK-MB (CK-2) Rel Index Total Protein Albumin TSH Urine WBC (Auto) Salicylates 04/04/17 04/05/17 04/05/17 21:51 06:14 09:54 WBC RBC Hgb Hct MCV MCH RDW Plt Count Lymph % (Auto) [place] % (Auto) Eos % (Auto) [place] # Seg Neutrophils % Seg Neuts % (Manual) Lymphocytes % (Manual) Seg Neutrophils # Seg Neutrophils # Man Lymphocytes # (Manual) APTT POC ABG pH ABG pH POC ABG pCO2 POC ABG pO2 ABG pO2 ABG HCO3 ABG Base Excess ABG Hemoglobin VBG pH Oxyhemoglobin Sodium Potassium Chloride Carbon Dioxide BUN Creatinine Glucose POC Glucose 252 H 152 H 181 H Lactic Acid Calcium AST ALT Alkaline Phosphatase CK-MB (CK-2) CK-MB (CK-2) Rel Index Total Protein Albumin TSH Urine WBC (Auto) Salicylates 04/05/17 04/05/17 04/05/17 14:49 17:34 21:38 WBC RBC Hgb Hct MCV MCH RDW Plt Count Lymph % (Auto) [place] % (Auto) Eos % (Auto) [place] # Seg Neutrophils % Seg Neuts % (Manual) Lymphocytes % (Manual) Seg Neutrophils # Seg Neutrophils # Man Lymphocytes # (Manual) APTT POC ABG pH ABG pH POC ABG pCO2 POC ABG pO2 ABG pO2 ABG HCO3 ABG Base Excess ABG Hemoglobin VBG pH Oxyhemoglobin Sodium Potassium Chloride Carbon Dioxide BUN Creatinine Glucose POC Glucose 219 H 268 H 278 H Lactic Acid Calcium AST ALT Alkaline Phosphatase CK-MB (CK-2) CK-MB (CK-2) Rel Index Total Protein Albumin TSH Urine WBC (Auto) Salicylates 04/06/17 04/06/17 04/07/17 15:04 22:14 05:09 WBC RBC Hgb Hct MCV MCH RDW Plt Count Lymph % (Auto) [place] % (Auto) Eos % (Auto) [place] # Seg Neutrophils % Seg Neuts % (Manual) Lymphocytes % (Manual) Seg Neutrophils # Seg Neutrophils # Man Lymphocytes # (Manual) APTT POC ABG pH ABG pH POC ABG pCO2 POC ABG pO2 ABG pO2 ABG HCO3 ABG Base Excess ABG Hemoglobin VBG pH Oxyhemoglobin Sodium Potassium Chloride Carbon Dioxide BUN Creatinine Glucose POC Glucose 285 H 106 H 334 H Lactic Acid Calcium AST ALT Alkaline Phosphatase CK-MB (CK-2) CK-MB (CK-2) Rel Index Total Protein Albumin TSH Urine WBC (Auto) Salicylates 04/07/17 04/07/17 04/08/17 14:45 21:48 05:28 WBC RBC Hgb Hct MCV MCH RDW Plt Count Lymph % (Auto) [place] % (Auto) Eos % (Auto) [place] # Seg Neutrophils % Seg Neuts % (Manual) Lymphocytes % (Manual) Seg Neutrophils # Seg Neutrophils # Man Lymphocytes # (Manual) APTT POC ABG pH ABG pH POC ABG pCO2 POC ABG pO2 ABG pO2 ABG HCO3 ABG Base Excess ABG Hemoglobin VBG pH Oxyhemoglobin Sodium Potassium Chloride Carbon Dioxide BUN Creatinine Glucose POC Glucose 173 H 304 H 314 H Lactic Acid Calcium AST ALT Alkaline Phosphatase CK-MB (CK-2) CK-MB (CK-2) Rel Index Total Protein Albumin TSH Urine WBC (Auto) Salicylates 04/08/17 04/08/17 04/08/17 15:57 16:17 22:21 WBC RBC Hgb Hct MCV MCH RDW Plt Count Lymph % (Auto) [place] % (Auto) Eos % (Auto) [place] # Seg Neutrophils % Seg Neuts % (Manual) Lymphocytes % (Manual) Seg Neutrophils # Seg Neutrophils # Man Lymphocytes # (Manual) APTT POC ABG pH ABG pH POC ABG pCO2 POC ABG pO2 ABG pO2 ABG HCO3 ABG Base Excess ABG Hemoglobin VBG pH Oxyhemoglobin Sodium Potassium Chloride Carbon Dioxide BUN Creatinine Glucose POC Glucose 356 H 337 H 323 H Lactic Acid Calcium AST ALT Alkaline Phosphatase CK-MB (CK-2) CK-MB (CK-2) Rel Index Total Protein Albumin TSH Urine WBC (Auto) Salicylates 04/09/17 04/09/17 04/09/17 06:19 15:30 21:52 WBC RBC Hgb Hct MCV MCH RDW Plt Count Lymph % (Auto) [place] % (Auto) Eos % (Auto) [place] # Seg Neutrophils % Seg Neuts % (Manual) Lymphocytes % (Manual) Seg Neutrophils # Seg Neutrophils # Man Lymphocytes # (Manual) APTT POC ABG pH ABG pH POC ABG pCO2 POC ABG pO2 ABG pO2 ABG HCO3 ABG Base Excess ABG Hemoglobin VBG pH Oxyhemoglobin Sodium Potassium Chloride Carbon Dioxide BUN Creatinine Glucose POC Glucose 340 H 332 H 341 H Lactic Acid Calcium AST ALT Alkaline Phosphatase CK-MB (CK-2) CK-MB (CK-2) Rel Index Total Protein Albumin TSH Urine WBC (Auto) Salicylates 04/10/17 04/10/17 04/10/17 01:53 05:33 17:40 WBC RBC Hgb Hct MCV MCH RDW Plt Count Lymph % (Auto) [place] % (Auto) Eos % (Auto) [place] # Seg Neutrophils % Seg Neuts % (Manual) Lymphocytes % (Manual) Seg Neutrophils # Seg Neutrophils # Man Lymphocytes # (Manual) APTT POC ABG pH ABG pH POC ABG pCO2 POC ABG pO2 ABG pO2 ABG HCO3 ABG Base Excess ABG Hemoglobin VBG pH Oxyhemoglobin Sodium Potassium Chloride Carbon Dioxide BUN Creatinine Glucose POC Glucose 261 H 277 H 304 H Lactic Acid Calcium AST ALT Alkaline Phosphatase CK-MB (CK-2) CK-MB (CK-2) Rel Index Total Protein Albumin TSH Urine WBC (Auto) Salicylates 04/10/17 04/11/17 04/11/17 21:29 05:28 14:02 WBC RBC Hgb Hct MCV MCH RDW Plt Count Lymph % (Auto) [place] % (Auto) Eos % (Auto) [place] # Seg Neutrophils % Seg Neuts % (Manual) Lymphocytes % (Manual) Seg Neutrophils # Seg Neutrophils # Man Lymphocytes # (Manual) APTT POC ABG pH ABG pH POC ABG pCO2 POC ABG pO2 ABG pO2 ABG HCO3 ABG Base Excess ABG Hemoglobin VBG pH Oxyhemoglobin Sodium Potassium Chloride Carbon Dioxide BUN Creatinine Glucose POC Glucose 361 H 204 H 236 H Lactic Acid Calcium AST ALT Alkaline Phosphatase CK-MB (CK-2) CK-MB (CK-2) Rel Index Total Protein Albumin TSH Urine WBC (Auto) Salicylates 04/11/17 04/12/17 04/12/17 21:43 05:00 11:53 WBC RBC Hgb Hct MCV MCH RDW Plt Count Lymph % (Auto) [place] % (Auto) Eos % (Auto) [place] # Seg Neutrophils % Seg Neuts % (Manual) Lymphocytes % (Manual) Seg Neutrophils # Seg Neutrophils # Man Lymphocytes # (Manual) APTT POC ABG pH ABG pH POC ABG pCO2 POC ABG pO2 ABG pO2 ABG HCO3 ABG Base Excess ABG Hemoglobin VBG pH Oxyhemoglobin Sodium Potassium Chloride Carbon Dioxide BUN Creatinine Glucose POC Glucose 287 H 294 H 265 H Lactic Acid Calcium AST ALT Alkaline Phosphatase CK-MB (CK-2) CK-MB (CK-2) Rel Index Total Protein Albumin TSH Urine WBC (Auto) Salicylates 04/12/17 04/12/17 04/13/17 21:21 23:44 06:05 WBC RBC Hgb Hct MCV MCH RDW Plt Count Lymph % (Auto) [place] % (Auto) Eos % (Auto) [place] # Seg Neutrophils % Seg Neuts % (Manual) Lymphocytes % (Manual) Seg Neutrophils # Seg Neutrophils # Man Lymphocytes # (Manual) APTT POC ABG pH ABG pH POC ABG pCO2 POC ABG pO2 ABG pO2 ABG HCO3 ABG Base Excess ABG Hemoglobin VBG pH Oxyhemoglobin Sodium Potassium Chloride Carbon Dioxide BUN Creatinine Glucose POC Glucose 289 H 348 H 326 H Lactic Acid Calcium AST ALT Alkaline Phosphatase CK-MB (CK-2) CK-MB (CK-2) Rel Index Total Protein Albumin TSH Urine WBC (Auto) Salicylates 04/13/17 04/13/17 04/14/17 13:54 21:15 05:49 WBC RBC Hgb Hct MCV MCH RDW Plt Count Lymph % (Auto) [place] % (Auto) Eos % (Auto) [place] # Seg Neutrophils % Seg Neuts % (Manual) Lymphocytes % (Manual) Seg Neutrophils # Seg Neutrophils # Man Lymphocytes # (Manual) APTT POC ABG pH ABG pH POC ABG pCO2 POC ABG pO2 ABG pO2 ABG HCO3 ABG Base Excess ABG Hemoglobin VBG pH Oxyhemoglobin Sodium Potassium Chloride Carbon Dioxide BUN Creatinine Glucose POC Glucose 326 H 263 H 319 H Lactic Acid Calcium AST ALT Alkaline Phosphatase CK-MB (CK-2) CK-MB (CK-2) Rel Index Total Protein Albumin TSH Urine WBC (Auto) Salicylates 04/14/17 04/14/17 04/15/17 13:26 23:13 14:24 WBC RBC Hgb Hct MCV MCH RDW Plt Count Lymph % (Auto) [place] % (Auto) Eos % (Auto) [place] # Seg Neutrophils % Seg Neuts % (Manual) Lymphocytes % (Manual) Seg Neutrophils # Seg Neutrophils # Man Lymphocytes # (Manual) APTT POC ABG pH ABG pH POC ABG pCO2 POC ABG pO2 ABG pO2 ABG HCO3 ABG Base Excess ABG Hemoglobin VBG pH Oxyhemoglobin Sodium Potassium Chloride Carbon Dioxide BUN Creatinine Glucose POC Glucose 207 H 365 H 308 H Lactic Acid Calcium AST ALT Alkaline Phosphatase CK-MB (CK-2) CK-MB (CK-2) Rel Index Total Protein Albumin TSH Urine WBC (Auto) Salicylates 04/15/17 04/15/17 04/15/17 21:00 22:18 23:12 WBC RBC Hgb Hct MCV MCH RDW Plt Count Lymph % (Auto) [place] % (Auto) Eos % (Auto) [place] # Seg Neutrophils % Seg Neuts % (Manual) Lymphocytes % (Manual) Seg Neutrophils # Seg Neutrophils # Man Lymphocytes # (Manual) APTT POC ABG pH ABG pH POC ABG pCO2 POC ABG pO2 ABG pO2 ABG HCO3 ABG Base Excess ABG Hemoglobin VBG pH Oxyhemoglobin Sodium Potassium Chloride Carbon Dioxide BUN Creatinine Glucose POC Glucose 407 H 287 H 325 H Lactic Acid Calcium AST ALT Alkaline Phosphatase CK-MB (CK-2) CK-MB (CK-2) Rel Index Total Protein Albumin TSH Urine WBC (Auto) Salicylates 04/16/17 04/16/17 04/16/17 05:30 10:07 14:26 WBC RBC Hgb Hct MCV MCH RDW Plt Count Lymph % (Auto) [place] % (Auto) Eos % (Auto) [place] # Seg Neutrophils % Seg Neuts % (Manual) Lymphocytes % (Manual) Seg Neutrophils # Seg Neutrophils # Man Lymphocytes # (Manual) APTT POC ABG pH ABG pH POC ABG pCO2 POC ABG pO2 ABG pO2 ABG HCO3 ABG Base Excess ABG Hemoglobin VBG pH Oxyhemoglobin Sodium Potassium Chloride Carbon Dioxide BUN Creatinine Glucose POC Glucose 304 H 217 H 344 H Lactic Acid Calcium AST ALT Alkaline Phosphatase CK-MB (CK-2) CK-MB (CK-2) Rel Index Total Protein Albumin TSH Urine WBC (Auto) Salicylates 04/16/17 04/17/17 04/17/17 21:25 05:12 14:19 WBC RBC Hgb Hct MCV MCH RDW Plt Count Lymph % (Auto) [place] % (Auto) Eos % (Auto) [place] # Seg Neutrophils % Seg Neuts % (Manual) Lymphocytes % (Manual) Seg Neutrophils # Seg Neutrophils # Man Lymphocytes # (Manual) APTT POC ABG pH ABG pH POC ABG pCO2 POC ABG pO2 ABG pO2 ABG HCO3 ABG Base Excess ABG Hemoglobin VBG pH Oxyhemoglobin Sodium Potassium Chloride Carbon Dioxide BUN Creatinine Glucose POC Glucose 305 H 233 H 324 H Lactic Acid Calcium AST ALT Alkaline Phosphatase CK-MB (CK-2) CK-MB (CK-2) Rel Index Total Protein Albumin TSH Urine WBC (Auto) Salicylates 04/17/17 04/18/17 04/18/17 21:42 06:21 14:08 WBC RBC Hgb Hct MCV MCH RDW Plt Count Lymph % (Auto) [place] % (Auto) Eos % (Auto) [place] # Seg Neutrophils % Seg Neuts % (Manual) Lymphocytes % (Manual) Seg Neutrophils # Seg Neutrophils # Man Lymphocytes # (Manual) APTT POC ABG pH ABG pH POC ABG pCO2 POC ABG pO2 ABG pO2 ABG HCO3 ABG Base Excess ABG Hemoglobin VBG pH Oxyhemoglobin Sodium Potassium Chloride Carbon Dioxide BUN Creatinine Glucose POC Glucose 270 H 308 H 290 H Lactic Acid Calcium AST ALT Alkaline Phosphatase CK-MB (CK-2) CK-MB (CK-2) Rel Index Total Protein Albumin TSH Urine WBC (Auto) Salicylates 04/18/17 04/19/17 04/19/17 21:50 05:20 13:59 WBC RBC Hgb Hct MCV MCH RDW Plt Count Lymph % (Auto) [place] % (Auto) Eos % (Auto) [place] # Seg Neutrophils % Seg Neuts % (Manual) Lymphocytes % (Manual) Seg Neutrophils # Seg Neutrophils # Man Lymphocytes # (Manual) APTT POC ABG pH ABG pH POC ABG pCO2 POC ABG pO2 ABG pO2 ABG HCO3 ABG Base Excess ABG Hemoglobin VBG pH Oxyhemoglobin Sodium Potassium Chloride Carbon Dioxide BUN Creatinine Glucose POC Glucose 167 H 372 H 321 H Lactic Acid Calcium AST ALT Alkaline Phosphatase CK-MB (CK-2) CK-MB (CK-2) Rel Index Total Protein Albumin TSH Urine WBC (Auto) Salicylates 04/19/17 04/20/17 04/20/17 21:16 14:18 21:34 WBC RBC Hgb Hct MCV MCH RDW Plt Count Lymph % (Auto) [place] % (Auto) Eos % (Auto) [place] # Seg Neutrophils % Seg Neuts % (Manual) Lymphocytes % (Manual) Seg Neutrophils # Seg Neutrophils # Man Lymphocytes # (Manual) APTT POC ABG pH ABG pH POC ABG pCO2 POC ABG pO2 ABG pO2 ABG HCO3 ABG Base Excess ABG Hemoglobin VBG pH Oxyhemoglobin Sodium Potassium Chloride Carbon Dioxide BUN Creatinine Glucose POC Glucose 182 H 218 H 121 H Lactic Acid Calcium AST ALT Alkaline Phosphatase CK-MB (CK-2) CK-MB (CK-2) Rel Index Total Protein Albumin TSH Urine WBC (Auto) Salicylates 04/21/17 04/21/17 04/21/17 00:08 05:16 12:41 WBC RBC Hgb Hct MCV MCH RDW Plt Count Lymph % (Auto) [place] % (Auto) Eos % (Auto) [place] # Seg Neutrophils % Seg Neuts % (Manual) Lymphocytes % (Manual) Seg Neutrophils # Seg Neutrophils # Man Lymphocytes # (Manual) APTT POC ABG pH ABG pH POC ABG pCO2 POC ABG pO2 ABG pO2 ABG HCO3 ABG Base Excess ABG Hemoglobin VBG pH Oxyhemoglobin Sodium Potassium Chloride Carbon Dioxide BUN Creatinine Glucose POC Glucose 128 H 120 H 216 H Lactic Acid Calcium AST ALT Alkaline Phosphatase CK-MB (CK-2) CK-MB (CK-2) Rel Index Total Protein Albumin TSH Urine WBC (Auto) Salicylates 04/21/17 04/22/17 04/22/17 23:40 14:12 23:38 WBC RBC Hgb Hct MCV MCH RDW Plt Count Lymph % (Auto) [place] % (Auto) Eos % (Auto) [place] # Seg Neutrophils % Seg Neuts % (Manual) Lymphocytes % (Manual) Seg Neutrophils # Seg Neutrophils # Man Lymphocytes # (Manual) APTT POC ABG pH ABG pH POC ABG pCO2 POC ABG pO2 ABG pO2 ABG HCO3 ABG Base Excess ABG Hemoglobin VBG pH Oxyhemoglobin Sodium Potassium Chloride Carbon Dioxide BUN Creatinine Glucose POC Glucose 157 H 242 H 117 H Lactic Acid Calcium AST ALT Alkaline Phosphatase CK-MB (CK-2) CK-MB (CK-2) Rel Index Total Protein Albumin TSH Urine WBC (Auto) Salicylates 04/23/17 04/23/17 04/24/17 05:18 14:01 03:24 WBC RBC Hgb Hct MCV MCH RDW Plt Count Lymph % (Auto) [place] % (Auto) Eos % (Auto) [place] # Seg Neutrophils % Seg Neuts % (Manual) Lymphocytes % (Manual) Seg Neutrophils # Seg Neutrophils # Man Lymphocytes # (Manual) APTT POC ABG pH ABG pH POC ABG pCO2 POC ABG pO2 ABG pO2 ABG HCO3 ABG Base Excess ABG Hemoglobin VBG pH Oxyhemoglobin Sodium Potassium Chloride Carbon Dioxide BUN Creatinine Glucose POC Glucose 163 H 57 L 177 H Lactic Acid Calcium AST ALT Alkaline Phosphatase CK-MB (CK-2) CK-MB (CK-2) Rel Index Total Protein Albumin TSH Urine WBC (Auto) Salicylates 04/24/17 04/24/17 04/24/17 04:00 04:00 06:33 WBC RBC Hgb 9.9 L Hct 30.0 L MCV 79 L MCH 26 L RDW 17.1 H Plt Count 625 H Lymph % (Auto) [place] % (Auto) 8.4 H Eos % (Auto) [place] # Seg Neutrophils % Seg Neuts % (Manual) Lymphocytes % (Manual) Seg Neutrophils # Seg Neutrophils # Man Lymphocytes # (Manual) APTT POC ABG pH ABG pH POC ABG pCO2 POC ABG pO2 ABG pO2 ABG HCO3 ABG Base Excess ABG Hemoglobin VBG pH Oxyhemoglobin Sodium 136 L Potassium Chloride 94.9 L Carbon Dioxide BUN 40 H Creatinine 0.6 L Glucose 176 H POC Glucose 230 H Lactic Acid Calcium AST 67 H ALT Alkaline Phosphatase 294 H CK-MB (CK-2) CK-MB (CK-2) Rel Index Total Protein 9.0 H Albumin 2.5 L TSH Urine WBC (Auto) Salicylates 04/24/17 04/25/17 04/25/17 13:50 00:22 02:55 WBC RBC 3.54 L Hgb 9.0 L Hct 27.9 L MCV 79 L MCH 26 L RDW 17.5 H Plt Count 574 H Lymph % (Auto) [place] % (Auto) 10.4 H Eos % (Auto) [place] # 1.0 H Seg Neutrophils % Seg Neuts % (Manual) Lymphocytes % (Manual) Seg Neutrophils # Seg Neutrophils # Man Lymphocytes # (Manual) APTT POC ABG pH ABG pH POC ABG pCO2 POC ABG pO2 ABG pO2 ABG HCO3 ABG Base Excess ABG Hemoglobin VBG pH Oxyhemoglobin Sodium Potassium Chloride Carbon Dioxide BUN Creatinine Glucose POC Glucose 116 H < 40 L Lactic Acid Calcium AST ALT Alkaline Phosphatase CK-MB (CK-2) CK-MB (CK-2) Rel Index Total Protein Albumin TSH Urine WBC (Auto) Salicylates 04/25/17 04/25/17 04/25/17 02:55 11:15 18:36 WBC RBC Hgb Hct MCV MCH RDW Plt Count Lymph % (Auto) [place] % (Auto) Eos % (Auto) [place] # Seg Neutrophils % Seg Neuts % (Manual) Lymphocytes % (Manual) Seg Neutrophils # Seg Neutrophils # Man Lymphocytes # (Manual) APTT POC ABG pH ABG pH POC ABG pCO2 POC ABG pO2 ABG pO2 ABG HCO3 ABG Base Excess ABG Hemoglobin VBG pH Oxyhemoglobin Sodium Potassium Chloride 96.2 L Carbon Dioxide BUN 39 H Creatinine 0.7 L Glucose 125 H POC Glucose 227 H 280 H Lactic Acid Calcium AST ALT Alkaline Phosphatase 247 H CK-MB (CK-2) CK-MB (CK-2) Rel Index Total Protein Albumin 2.7 L TSH Urine WBC (Auto) Salicylates 04/25/17 04/26/17 04/26/17 21:49 06:53 07:27 WBC RBC 3.61 L Hgb 9.1 L Hct 28.1 L MCV 78 L MCH 25 L RDW 17.4 H Plt Count 594 H Lymph % (Auto) [place] % (Auto) 9.2 H Eos % (Auto) [place] # 1.0 H Seg Neutrophils % 70.6 H Seg Neuts % (Manual) Lymphocytes % (Manual) Seg Neutrophils # Seg Neutrophils # Man Lymphocytes # (Manual) APTT POC ABG pH ABG pH POC ABG pCO2 POC ABG pO2 ABG pO2 ABG HCO3 ABG Base Excess ABG Hemoglobin VBG pH Oxyhemoglobin Sodium Potassium Chloride Carbon Dioxide BUN Creatinine Glucose POC Glucose 192 H 60 L Lactic Acid Calcium AST ALT Alkaline Phosphatase CK-MB (CK-2) CK-MB (CK-2) Rel Index Total Protein Albumin TSH Urine WBC (Auto) Salicylates 04/26/17 04/26/17 04/26/17 07:27 07:28 13:32 WBC RBC Hgb Hct MCV MCH RDW Plt Count Lymph % (Auto) [place] % (Auto) Eos % (Auto) [place] # Seg Neutrophils % Seg Neuts % (Manual) Lymphocytes % (Manual) Seg Neutrophils # Seg Neutrophils # Man Lymphocytes # (Manual) APTT POC ABG pH ABG pH POC ABG pCO2 POC ABG pO2 ABG pO2 ABG HCO3 ABG Base Excess ABG Hemoglobin VBG pH Oxyhemoglobin Sodium Potassium Chloride 95.0 L Carbon Dioxide BUN 42 H Creatinine 0.7 L Glucose 172 H POC Glucose 190 H 168 H Lactic Acid Calcium AST 56 H ALT Alkaline Phosphatase 274 H CK-MB (CK-2) CK-MB (CK-2) Rel Index Total Protein 8.9 H Albumin 2.7 L TSH Urine WBC (Auto) Salicylates 04/26/17 04/27/17 04/27/17 23:36 05:10 05:10 WBC RBC 3.49 L Hgb 8.7 L Hct 27.0 L MCV 77 L MCH 25 L RDW 17.4 H Plt Count 558 H Lymph % (Auto) [place] % (Auto) 9.6 H Eos % (Auto) [place] # Seg Neutrophils % Seg Neuts % (Manual) Lymphocytes % (Manual) Seg Neutrophils # Seg Neutrophils # Man Lymphocytes # (Manual) APTT POC ABG pH ABG pH POC ABG pCO2 POC ABG pO2 ABG pO2 ABG HCO3 ABG Base Excess ABG Hemoglobin VBG pH Oxyhemoglobin Sodium 133 L Potassium Chloride 93.5 L Carbon Dioxide BUN 40 H Creatinine 0.7 L Glucose 179 H POC Glucose 204 H Lactic Acid Calcium AST 73 H ALT 58 H Alkaline Phosphatase 294 H CK-MB (CK-2) CK-MB (CK-2) Rel Index Total Protein 8.7 H Albumin 2.4 L TSH Urine WBC (Auto) Salicylates 04/27/17 04/27/17 04/27/17 05:45 14:08 23:46 WBC RBC Hgb Hct MCV MCH RDW Plt Count Lymph % (Auto) [place] % (Auto) Eos % (Auto) [place] # Seg Neutrophils % Seg Neuts % (Manual) Lymphocytes % (Manual) Seg Neutrophils # Seg Neutrophils # Man Lymphocytes # (Manual) APTT POC ABG pH ABG pH POC ABG pCO2 POC ABG pO2 ABG pO2 ABG HCO3 ABG Base Excess ABG Hemoglobin VBG pH Oxyhemoglobin Sodium Potassium Chloride Carbon Dioxide BUN Creatinine Glucose POC Glucose 200 H 206 H 207 H Lactic Acid Calcium AST ALT Alkaline Phosphatase CK-MB (CK-2) CK-MB (CK-2) Rel Index Total Protein Albumin TSH Urine WBC (Auto) Salicylates 04/28/17 04/28/17 04/28/17 04:48 04:53 05:10 WBC RBC 3.48 L Hgb 8.8 L Hct 26.7 L MCV 77 L MCH 25 L RDW 17.0 H Plt Count 515 H Lymph % (Auto) [place] % (Auto) 8.4 H Eos % (Auto) [place] # Seg Neutrophils % 70.6 H Seg Neuts % (Manual) Lymphocytes % (Manual) Seg Neutrophils # Seg Neutrophils # Man Lymphocytes # (Manual) APTT POC ABG pH ABG pH POC ABG pCO2 POC ABG pO2 ABG pO2 ABG HCO3 ABG Base Excess ABG Hemoglobin VBG pH Oxyhemoglobin Sodium Potassium Chloride Carbon Dioxide BUN Creatinine Glucose POC Glucose 43 L 41 L Lactic Acid Calcium AST ALT Alkaline Phosphatase CK-MB (CK-2) CK-MB (CK-2) Rel Index Total Protein Albumin TSH Urine WBC (Auto) Salicylates 04/28/17 04/28/17 04/28/17 05:10 14:06 22:07 WBC RBC Hgb Hct MCV MCH RDW Plt Count Lymph % (Auto) [place] % (Auto) Eos % (Auto) [place] # Seg Neutrophils % Seg Neuts % (Manual) Lymphocytes % (Manual) Seg Neutrophils # Seg Neutrophils # Man Lymphocytes # (Manual) APTT POC ABG pH ABG pH POC ABG pCO2 POC ABG pO2 ABG pO2 ABG HCO3 ABG Base Excess ABG Hemoglobin VBG pH Oxyhemoglobin Sodium 136 L Potassium Chloride 95.2 L Carbon Dioxide BUN 42 H Creatinine Glucose 63 L POC Glucose 303 H 227 H Lactic Acid Calcium AST 45 H ALT Alkaline Phosphatase 271 H CK-MB (CK-2) CK-MB (CK-2) Rel Index Total Protein 8.9 H Albumin 2.5 L TSH Urine WBC (Auto) Salicylates 04/29/17 04/29/17 04/29/17 06:40 14:11 21:35 WBC RBC Hgb Hct MCV MCH RDW Plt Count Lymph % (Auto) [place] % (Auto) Eos % (Auto) [place] # Seg Neutrophils % Seg Neuts % (Manual) Lymphocytes % (Manual) Seg Neutrophils # Seg Neutrophils # Man Lymphocytes # (Manual) APTT POC ABG pH ABG pH POC ABG pCO2 POC ABG pO2 ABG pO2 ABG HCO3 ABG Base Excess ABG Hemoglobin VBG pH Oxyhemoglobin Sodium Potassium Chloride Carbon Dioxide BUN Creatinine Glucose POC Glucose 254 H 244 H 184 H Lactic Acid Calcium AST ALT Alkaline Phosphatase CK-MB (CK-2) CK-MB (CK-2) Rel Index Total Protein Albumin TSH Urine WBC (Auto) Salicylates 04/30/17 04/30/17 04/30/17 05:17 14:03 22:08 WBC RBC Hgb Hct MCV MCH RDW Plt Count Lymph % (Auto) [place] % (Auto) Eos % (Auto) [place] # Seg Neutrophils % Seg Neuts % (Manual) Lymphocytes % (Manual) Seg Neutrophils # Seg Neutrophils # Man Lymphocytes # (Manual) APTT POC ABG pH ABG pH POC ABG pCO2 POC ABG pO2 ABG pO2 ABG HCO3 ABG Base Excess ABG Hemoglobin VBG pH Oxyhemoglobin Sodium Potassium Chloride Carbon Dioxide BUN Creatinine Glucose POC Glucose 173 H 182 H 247 H Lactic Acid Calcium AST ALT Alkaline Phosphatase CK-MB (CK-2) CK-MB (CK-2) Rel Index Total Protein Albumin TSH Urine WBC (Auto) Salicylates 05/01/17 05/01/17 05/01/17 05:04 15:37 18:50 WBC RBC Hgb Hct MCV MCH RDW Plt Count Lymph % (Auto) [place] % (Auto) Eos % (Auto) [place] # Seg Neutrophils % Seg Neuts % (Manual) Lymphocytes % (Manual) Seg Neutrophils # Seg Neutrophils # Man Lymphocytes # (Manual) APTT POC ABG pH ABG pH POC ABG pCO2 POC ABG pO2 ABG pO2 ABG HCO3 ABG Base Excess ABG Hemoglobin VBG pH Oxyhemoglobin Sodium Potassium Chloride Carbon Dioxide BUN Creatinine Glucose POC Glucose 335 H 68 L 144 H Lactic Acid Calcium AST ALT Alkaline Phosphatase CK-MB (CK-2) CK-MB (CK-2) Rel Index Total Protein Albumin TSH Urine WBC (Auto) Salicylates 05/01/17 05/02/17 05/02/17 22:13 04:59 14:06 WBC RBC Hgb Hct MCV MCH RDW Plt Count Lymph % (Auto) [place] % (Auto) Eos % (Auto) [place] # Seg Neutrophils % Seg Neuts % (Manual) Lymphocytes % (Manual) Seg Neutrophils # Seg Neutrophils # Man Lymphocytes # (Manual) APTT POC ABG pH ABG pH POC ABG pCO2 POC ABG pO2 ABG pO2 ABG HCO3 ABG Base Excess ABG Hemoglobin VBG pH Oxyhemoglobin Sodium Potassium Chloride Carbon Dioxide BUN Creatinine Glucose POC Glucose 192 H 225 H 165 H Lactic Acid Calcium AST ALT Alkaline Phosphatase CK-MB (CK-2) CK-MB (CK-2) Rel Index Total Protein Albumin TSH Urine WBC (Auto) Salicylates 05/02/17 05/03/17 05/03/17 21:20 05:16 16:56 WBC RBC Hgb Hct MCV MCH RDW Plt Count Lymph % (Auto) [place] % (Auto) Eos % (Auto) [place] # Seg Neutrophils % Seg Neuts % (Manual) Lymphocytes % (Manual) Seg Neutrophils # Seg Neutrophils # Man Lymphocytes # (Manual) APTT POC ABG pH ABG pH POC ABG pCO2 POC ABG pO2 ABG pO2 ABG HCO3 ABG Base Excess ABG Hemoglobin VBG pH Oxyhemoglobin Sodium Potassium Chloride Carbon Dioxide BUN Creatinine Glucose POC Glucose 181 H 323 H 125 H Lactic Acid Calcium AST ALT Alkaline Phosphatase CK-MB (CK-2) CK-MB (CK-2) Rel Index Total Protein Albumin TSH Urine WBC (Auto) Salicylates 05/03/17 05/04/17 05/04/17 21:46 05:01 14:24 WBC RBC Hgb Hct MCV MCH RDW Plt Count Lymph % (Auto) [place] % (Auto) Eos % (Auto) [place] # Seg Neutrophils % Seg Neuts % (Manual) Lymphocytes % (Manual) Seg Neutrophils # Seg Neutrophils # Man Lymphocytes # (Manual) APTT POC ABG pH ABG pH POC ABG pCO2 POC ABG pO2 ABG pO2 ABG HCO3 ABG Base Excess ABG Hemoglobin VBG pH Oxyhemoglobin Sodium Potassium Chloride Carbon Dioxide BUN Creatinine Glucose POC Glucose 210 H 360 H 219 H Lactic Acid Calcium AST ALT Alkaline Phosphatase CK-MB (CK-2) CK-MB (CK-2) Rel Index Total Protein Albumin TSH Urine WBC (Auto) Salicylates 05/04/17 05/05/17 05/05/17 21:39 01:58 05:13 WBC RBC Hgb Hct MCV MCH RDW Plt Count Lymph % (Auto) [place] % (Auto) Eos % (Auto) [place] # Seg Neutrophils % Seg Neuts % (Manual) Lymphocytes % (Manual) Seg Neutrophils # Seg Neutrophils # Man Lymphocytes # (Manual) APTT POC ABG pH ABG pH POC ABG pCO2 POC ABG pO2 ABG pO2 ABG HCO3 ABG Base Excess ABG Hemoglobin VBG pH Oxyhemoglobin Sodium Potassium Chloride Carbon Dioxide BUN Creatinine Glucose POC Glucose 126 H 175 H 267 H Lactic Acid Calcium AST ALT Alkaline Phosphatase CK-MB (CK-2) CK-MB (CK-2) Rel Index Total Protein Albumin TSH Urine WBC (Auto) Salicylates 05/05/17 05/05/17 05/05/17 12:19 14:11 21:18 WBC RBC Hgb Hct MCV MCH RDW Plt Count Lymph % (Auto) [place] % (Auto) Eos % (Auto) [place] # Seg Neutrophils % Seg Neuts % (Manual) Lymphocytes % (Manual) Seg Neutrophils # Seg Neutrophils # Man Lymphocytes # (Manual) APTT POC ABG pH ABG pH POC ABG pCO2 POC ABG pO2 ABG pO2 ABG HCO3 ABG Base Excess ABG Hemoglobin VBG pH Oxyhemoglobin Sodium Potassium Chloride Carbon Dioxide BUN Creatinine Glucose POC Glucose 221 H 205 H 156 H Lactic Acid Calcium AST ALT Alkaline Phosphatase CK-MB (CK-2) CK-MB (CK-2) Rel Index Total Protein Albumin TSH Urine WBC (Auto) Salicylates 05/06/17 05/06/17 05/06/17 06:02 15:26 21:43 WBC RBC Hgb Hct MCV MCH RDW Plt Count Lymph % (Auto) [place] % (Auto) Eos % (Auto) [place] # Seg Neutrophils % Seg Neuts % (Manual) Lymphocytes % (Manual) Seg Neutrophils # Seg Neutrophils # Man Lymphocytes # (Manual) APTT POC ABG pH ABG pH POC ABG pCO2 POC ABG pO2 ABG pO2 ABG HCO3 ABG Base Excess ABG Hemoglobin VBG pH Oxyhemoglobin Sodium Potassium Chloride Carbon Dioxide BUN Creatinine Glucose POC Glucose 263 H 143 H 145 H Lactic Acid Calcium AST ALT Alkaline Phosphatase CK-MB (CK-2) CK-MB (CK-2) Rel Index Total Protein Albumin TSH Urine WBC (Auto) Salicylates 05/07/17 05/07/17 05/07/17 05:52 21:46 21:49 WBC RBC Hgb Hct MCV MCH RDW Plt Count Lymph % (Auto) [place] % (Auto) Eos % (Auto) [place] # Seg Neutrophils % Seg Neuts % (Manual) Lymphocytes % (Manual) Seg Neutrophils # Seg Neutrophils # Man Lymphocytes # (Manual) APTT POC ABG pH ABG pH POC ABG pCO2 POC ABG pO2 ABG pO2 ABG HCO3 ABG Base Excess ABG Hemoglobin VBG pH Oxyhemoglobin Sodium Potassium Chloride Carbon Dioxide BUN Creatinine Glucose POC Glucose 242 H < 40 L < 40 L Lactic Acid Calcium AST ALT Alkaline Phosphatase CK-MB (CK-2) CK-MB (CK-2) Rel Index Total Protein Albumin TSH Urine WBC (Auto) Salicylates 05/07/17 05/08/17 05/09/17 22:41 06:14 00:02 WBC RBC Hgb Hct MCV MCH RDW Plt Count Lymph % (Auto) [place] % (Auto) Eos % (Auto) [place] # Seg Neutrophils % Seg Neuts % (Manual) Lymphocytes % (Manual) Seg Neutrophils # Seg Neutrophils # Man Lymphocytes # (Manual) APTT POC ABG pH ABG pH POC ABG pCO2 POC ABG pO2 ABG pO2 ABG HCO3 ABG Base Excess ABG Hemoglobin VBG pH Oxyhemoglobin Sodium Potassium Chloride Carbon Dioxide BUN Creatinine Glucose POC Glucose 183 H 329 H 130 H Lactic Acid Calcium AST ALT Alkaline Phosphatase CK-MB (CK-2) CK-MB (CK-2) Rel Index Total Protein Albumin TSH Urine WBC (Auto) Salicylates 05/09/17 05/09/17 05/09/17 06:08 14:06 21:44 WBC RBC Hgb Hct MCV MCH RDW Plt Count Lymph % (Auto) [place] % (Auto) Eos % (Auto) [place] # Seg Neutrophils % Seg Neuts % (Manual) Lymphocytes % (Manual) Seg Neutrophils # Seg Neutrophils # Man Lymphocytes # (Manual) APTT POC ABG pH ABG pH POC ABG pCO2 POC ABG pO2 ABG pO2 ABG HCO3 ABG Base Excess ABG Hemoglobin VBG pH Oxyhemoglobin Sodium Potassium Chloride Carbon Dioxide BUN Creatinine Glucose POC Glucose 241 H 251 H 198 H Lactic Acid Calcium AST ALT Alkaline Phosphatase CK-MB (CK-2) CK-MB (CK-2) Rel Index Total Protein Albumin TSH Urine WBC (Auto) Salicylates 05/10/17 05/10/17 05/10/17 05:18 14:44 21:53 WBC RBC Hgb Hct MCV MCH RDW Plt Count Lymph % (Auto) [place] % (Auto) Eos % (Auto) [place] # Seg Neutrophils % Seg Neuts % (Manual) Lymphocytes % (Manual) Seg Neutrophils # Seg Neutrophils # Man Lymphocytes # (Manual) APTT POC ABG pH ABG pH POC ABG pCO2 POC ABG pO2 ABG pO2 ABG HCO3 ABG Base Excess ABG Hemoglobin VBG pH Oxyhemoglobin Sodium Potassium Chloride Carbon Dioxide BUN Creatinine Glucose POC Glucose 166 H 224 H 171 H Lactic Acid Calcium AST ALT Alkaline Phosphatase CK-MB (CK-2) CK-MB (CK-2) Rel Index Total Protein Albumin TSH Urine WBC (Auto) Salicylates 05/11/17 05/11/17 05/11/17 05:45 13:44 21:42 WBC RBC Hgb Hct MCV MCH RDW Plt Count Lymph % (Auto) [place] % (Auto) Eos % (Auto) [place] # Seg Neutrophils % Seg Neuts % (Manual) Lymphocytes % (Manual) Seg Neutrophils # Seg Neutrophils # Man Lymphocytes # (Manual) APTT POC ABG pH ABG pH POC ABG pCO2 POC ABG pO2 ABG pO2 ABG HCO3 ABG Base Excess ABG Hemoglobin VBG pH Oxyhemoglobin Sodium Potassium Chloride Carbon Dioxide BUN Creatinine Glucose POC Glucose 199 H 150 H 163 H Lactic Acid Calcium AST ALT Alkaline Phosphatase CK-MB (CK-2) CK-MB (CK-2) Rel Index Total Protein Albumin TSH Urine WBC (Auto) Salicylates 05/12/17 05/12/17 05/12/17 06:03 13:59 21:22 WBC RBC Hgb Hct MCV MCH RDW Plt Count Lymph % (Auto) [place] % (Auto) Eos % (Auto) [place] # Seg Neutrophils % Seg Neuts % (Manual) Lymphocytes % (Manual) Seg Neutrophils # Seg Neutrophils # Man Lymphocytes # (Manual) APTT POC ABG pH ABG pH POC ABG pCO2 POC ABG pO2 ABG pO2 ABG HCO3 ABG Base Excess ABG Hemoglobin VBG pH Oxyhemoglobin Sodium Potassium Chloride Carbon Dioxide BUN Creatinine Glucose POC Glucose 147 H 243 H 116 H Lactic Acid Calcium AST ALT Alkaline Phosphatase CK-MB (CK-2) CK-MB (CK-2) Rel Index Total Protein Albumin TSH Urine WBC (Auto) Salicylates 05/13/17 05/13/17 05/13/17 05:28 13:49 21:29 WBC RBC Hgb Hct MCV MCH RDW Plt Count Lymph % (Auto) [place] % (Auto) Eos % (Auto) [place] # Seg Neutrophils % Seg Neuts % (Manual) Lymphocytes % (Manual) Seg Neutrophils # Seg Neutrophils # Man Lymphocytes # (Manual) APTT POC ABG pH ABG pH POC ABG pCO2 POC ABG pO2 ABG pO2 ABG HCO3 ABG Base Excess ABG Hemoglobin VBG pH Oxyhemoglobin Sodium Potassium Chloride Carbon Dioxide BUN Creatinine Glucose POC Glucose 213 H 224 H 379 H Lactic Acid Calcium AST ALT Alkaline Phosphatase CK-MB (CK-2) CK-MB (CK-2) Rel Index Total Protein Albumin TSH Urine WBC (Auto) Salicylates 05/14/17 05/14/17 05/14/17 05:17 13:35 21:23 WBC RBC Hgb Hct MCV MCH RDW Plt Count Lymph % (Auto) [place] % (Auto) Eos % (Auto) [place] # Seg Neutrophils % Seg Neuts % (Manual) Lymphocytes % (Manual) Seg Neutrophils # Seg Neutrophils # Man Lymphocytes # (Manual) APTT POC ABG pH ABG pH POC ABG pCO2 POC ABG pO2 ABG pO2 ABG HCO3 ABG Base Excess ABG Hemoglobin VBG pH Oxyhemoglobin Sodium Potassium Chloride Carbon Dioxide BUN Creatinine Glucose POC Glucose 234 H 242 H 218 H Lactic Acid Calcium AST ALT Alkaline Phosphatase CK-MB (CK-2) CK-MB (CK-2) Rel Index Total Protein Albumin TSH Urine WBC (Auto) Salicylates 05/15/17 05/15/1718 04:58 13:53 01:34 WBC RBC Hgb Hct MCV MCH RDW Plt Count Lymph % (Auto) [place] % (Auto) Eos % (Auto) [place] # Seg Neutrophils % Seg Neuts % (Manual) Lymphocytes % (Manual) Seg Neutrophils # Seg Neutrophils # Man Lymphocytes # (Manual) APTT POC ABG pH ABG pH POC ABG pCO2 POC ABG pO2 ABG pO2 ABG HCO3 ABG Base Excess ABG Hemoglobin VBG pH Oxyhemoglobin Sodium Potassium Chloride Carbon Dioxide BUN Creatinine Glucose POC Glucose 310 H 193 H 263 H Lactic Acid Calcium AST ALT Alkaline Phosphatase CK-MB (CK-2) CK-MB (CK-2) Rel Index Total Protein Albumin TSH Urine WBC (Auto) Salicylates 05/16/17 05/16/17 05/16/17 06:03 14:36 21:59 WBC RBC Hgb Hct MCV MCH RDW Plt Count Lymph % (Auto) [place] % (Auto) Eos % (Auto) [place] # Seg Neutrophils % Seg Neuts % (Manual) Lymphocytes % (Manual) Seg Neutrophils # Seg Neutrophils # Man Lymphocytes # (Manual) APTT POC ABG pH ABG pH POC ABG pCO2 POC ABG pO2 ABG pO2 ABG HCO3 ABG Base Excess ABG Hemoglobin VBG pH Oxyhemoglobin Sodium Potassium Chloride Carbon Dioxide BUN Creatinine Glucose POC Glucose 330 H 272 H 198 H Lactic Acid Calcium AST ALT Alkaline Phosphatase CK-MB (CK-2) CK-MB (CK-2) Rel Index Total Protein Albumin TSH Urine WBC (Auto) Salicylates 05/17/17 05/17/17 05/18/17 05:48 13:59 05:27 WBC RBC Hgb Hct MCV MCH RDW Plt Count Lymph % (Auto) [place] % (Auto) Eos % (Auto) [place] # Seg Neutrophils % Seg Neuts % (Manual) Lymphocytes % (Manual) Seg Neutrophils # Seg Neutrophils # Man Lymphocytes # (Manual) APTT POC ABG pH ABG pH POC ABG pCO2 POC ABG pO2 ABG pO2 ABG HCO3 ABG Base Excess ABG Hemoglobin VBG pH Oxyhemoglobin Sodium Potassium Chloride Carbon Dioxide BUN Creatinine Glucose POC Glucose 204 H 229 H 152 H Lactic Acid Calcium AST ALT Alkaline Phosphatase CK-MB (CK-2) CK-MB (CK-2) Rel Index Total Protein Albumin TSH Urine WBC (Auto) Salicylates 05/18/17 05/18/17 05/19/17 14:16 21:27 04:59 WBC RBC Hgb Hct MCV MCH RDW Plt Count Lymph % (Auto) [place] % (Auto) Eos % (Auto) [place] # Seg Neutrophils % Seg Neuts % (Manual) Lymphocytes % (Manual) Seg Neutrophils # Seg Neutrophils # Man Lymphocytes # (Manual) APTT POC ABG pH ABG pH POC ABG pCO2 POC ABG pO2 ABG pO2 ABG HCO3 ABG Base Excess ABG Hemoglobin VBG pH Oxyhemoglobin Sodium Potassium Chloride Carbon Dioxide BUN Creatinine Glucose POC Glucose 217 H 202 H 131 H Lactic Acid Calcium AST ALT Alkaline Phosphatase CK-MB (CK-2) CK-MB (CK-2) Rel Index Total Protein Albumin TSH Urine WBC (Auto) Salicylates 05/19/17 05/20/17 05/20/17 14:57 00:11 05:45 WBC RBC Hgb Hct MCV MCH RDW Plt Count Lymph % (Auto) [place] % (Auto) Eos % (Auto) [place] # Seg Neutrophils % Seg Neuts % (Manual) Lymphocytes % (Manual) Seg Neutrophils # Seg Neutrophils # Man Lymphocytes # (Manual) APTT POC ABG pH ABG pH POC ABG pCO2 POC ABG pO2 ABG pO2 ABG HCO3 ABG Base Excess ABG Hemoglobin VBG pH Oxyhemoglobin Sodium Potassium Chloride Carbon Dioxide BUN Creatinine Glucose POC Glucose 216 H 197 H 195 H Lactic Acid Calcium AST ALT Alkaline Phosphatase CK-MB (CK-2) CK-MB (CK-2) Rel Index Total Protein Albumin TSH Urine WBC (Auto) Salicylates 05/20/17 05/20/17 05/21/17 13:29 22:11 05:43 WBC RBC Hgb Hct MCV MCH RDW Plt Count Lymph % (Auto) [place] % (Auto) Eos % (Auto) [place] # Seg Neutrophils % Seg Neuts % (Manual) Lymphocytes % (Manual) Seg Neutrophils # Seg Neutrophils # Man Lymphocytes # (Manual) APTT POC ABG pH ABG pH POC ABG pCO2 POC ABG pO2 ABG pO2 ABG HCO3 ABG Base Excess ABG Hemoglobin VBG pH Oxyhemoglobin Sodium Potassium Chloride Carbon Dioxide BUN Creatinine Glucose POC Glucose 138 H 242 H 228 H Lactic Acid Calcium AST ALT Alkaline Phosphatase CK-MB (CK-2) CK-MB (CK-2) Rel Index Total Protein Albumin TSH Urine WBC (Auto) Salicylates 05/21/17 05/21/17 05/22/17 14:06 21:49 05:31 WBC RBC Hgb Hct MCV MCH RDW Plt Count Lymph % (Auto) [place] % (Auto) Eos % (Auto) [place] # Seg Neutrophils % Seg Neuts % (Manual) Lymphocytes % (Manual) Seg Neutrophils # Seg Neutrophils # Man Lymphocytes # (Manual) APTT POC ABG pH ABG pH POC ABG pCO2 POC ABG pO2 ABG pO2 ABG HCO3 ABG Base Excess ABG Hemoglobin VBG pH Oxyhemoglobin Sodium Potassium Chloride Carbon Dioxide BUN Creatinine Glucose POC Glucose 191 H 166 H 184 H Lactic Acid Calcium AST ALT Alkaline Phosphatase CK-MB (CK-2) CK-MB (CK-2) Rel Index Total Protein Albumin TSH Urine WBC (Auto) Salicylates 05/22/17 05/22/17 05/23/17 14:03 21:45 05:41 WBC RBC Hgb Hct MCV MCH RDW Plt Count Lymph % (Auto) [place] % (Auto) Eos % (Auto) [place] # Seg Neutrophils % Seg Neuts % (Manual) Lymphocytes % (Manual) Seg Neutrophils # Seg Neutrophils # Man Lymphocytes # (Manual) APTT POC ABG pH ABG pH POC ABG pCO2 POC ABG pO2 ABG pO2 ABG HCO3 ABG Base Excess ABG Hemoglobin VBG pH Oxyhemoglobin Sodium Potassium Chloride Carbon Dioxide BUN Creatinine Glucose POC Glucose 206 H 178 H 206 H Lactic Acid Calcium AST ALT Alkaline Phosphatase CK-MB (CK-2) CK-MB (CK-2) Rel Index Total Protein Albumin TSH Urine WBC (Auto) Salicylates 05/23/17 05/23/17 05/24/17 14:09 22:48 05:21 WBC RBC Hgb Hct MCV MCH RDW Plt Count Lymph % (Auto) [place] % (Auto) Eos % (Auto) [place] # Seg Neutrophils % Seg Neuts % (Manual) Lymphocytes % (Manual) Seg Neutrophils # Seg Neutrophils # Man Lymphocytes # (Manual) APTT POC ABG pH ABG pH POC ABG pCO2 POC ABG pO2 ABG pO2 ABG HCO3 ABG Base Excess ABG Hemoglobin VBG pH Oxyhemoglobin Sodium Potassium Chloride Carbon Dioxide BUN Creatinine Glucose POC Glucose 148 H 181 H 162 H Lactic Acid Calcium AST ALT Alkaline Phosphatase CK-MB (CK-2) CK-MB (CK-2) Rel Index Total Protein Albumin TSH Urine WBC (Auto) Salicylates
[2017-05-24] MEDS: PEPCID PO SCH ×2 (10:45→21:40)
[2017-05-24] MEDS: HEPARIN SUB-Q SCH ×2 (10:45→21:40)
[2017-05-25] MEDS: LEVEMIR (NF) SUB-Q SCH (08:24)
[2017-05-25] MEDS: HumuLIN R SUB-Q SCH ×2 (08:24→15:30)
--- NOTE | 2017-05-25 09:37 | Progress Note ---
Assessment and Plan 51 y/o male found down, concern for sepsis and now encephalopathic requiring mechanical ventilation. 1. continue supportive care 2. 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 I am aware that he is an AND but trach will not fix this problem and is not in my professional opinion the right thing to do for this patient. Most likely he will never be weaned from the vent and will remain in a persistent vegatative state. 3. Overall prognosis continues to be poor. 4. Will not check labs 5. Vitals should be qshift 6. This patient's possibility of awakening from this persistent vegatative is unlikely. The current status is that there has been paper work filed to obtain guardianship so that end of life decisions can be made. Supportive care is reasonable but checking daily labs and doing other invasive things to this patient I do not feel is morally and ethically appropriate. 7. Currently patient does not have IV access and is not requiring any medical therapy. Will not place another one at this time. 8. Per [place], went to court 05/03/17 for Guardianship. One has been appointed, awaiting to meet them. Per report, they agree with hospice care, but do not have the authority to authorize withdrawal once at hospice. 10. Subjective Date of service: 05/25/17 Principal diagnosis: Acute respiratory failure,encephalopathy Interval history: No acute events. Mental status is unchanged. Objective Vital Signs - 12hr 05/24/17 05/25/17 05/25/17 22:00 00:03 04:42 Temperature 97.8 F Pulse Rate 70 72 72 Pulse Rate [ 69 From Monitor] Respiratory 18 Rate Blood Pressure 121/78 108/68 111/73 O2 Sat by Pulse 100 100 100 Oximetry 05/25/17 05/25/17 05/25/17 07:41 08:00 08:30 Temperature 97.1 F L Pulse Rate 75 Pulse Rate [ 73 From Monitor] Respiratory 13 Rate Blood Pressure 111/73 O2 Sat by Pulse 100 100 Oximetry Constitutional: no acute distress, other (on vent) Eyes: non-icteric ENT: oropharynx moist, other (ETT in position) Neck: supple Effort: normal Ascultation: Bilateral: clear, diminished breath sounds Cardiovascular: regular rate and rhythm (no mrg) Gastrointestinal: normoactive bowel sounds, soft, non-tender, non-distended Integumentary: normal Extremities: no cyanosis, no edema, pink and warm Neurologic: pupils equal and round, other (opens eyes spontaneously, but no meaningful responce to stimuli) Psychiatric: other (unable to obtain) CBC and BMP: 04/28/17 05:10 04/28/17 05:10 ABG, PT/INR, D-dimer: ABG POC ABG pH 7.442 (7.35-7.45) 01/31/17 18:55 ABG pH 7.420 pH Units (7.350-7.450) 01/17/17 04:35 POC ABG pCO2 32.8 (35-45) L 01/31/17 18:55 ABG pCO2 34.5 mm Hg 01/17/17 04:35 POC ABG pO2 82 (80-105) 01/31/17 18:55 ABG pO2 160.3 mm Hg (80.0-90.0) H 01/17/17 04:35 POC ABG HCO3 22.4 01/31/17 18:55 POC ABG Total CO2 23 01/31/17 18:55 POC ABG O2 Sat 97 01/31/17 18:55 ABG O2 Saturation 99.0 % (95.0-99.0) 01/17/17 04:35 PT/INR, D-dimer PT 14.1 Sec. (12.2-14.9) 01/17/17 04:10 INR 1.04 (0.87-1.13) 01/17/17 04:10 Abnormal lab findings: Abnormal Labs 01/09/17 01/09/17 01/09/17 10:16 10:16 10:16 WBC RBC Hgb 9.7 L Hct 28.4 L MCV 76 L MCH 26 L RDW 17.2 H Plt Count 448 H Lymph % (Auto) [place] % (Auto) Eos % (Auto) [place] # Seg Neutrophils % 79.5 H Seg Neuts % (Manual) Lymphocytes % (Manual) Seg Neutrophils # Seg Neutrophils # Man Lymphocytes # (Manual) APTT 39.6 H POC ABG pH ABG pH POC ABG pCO2 POC ABG pO2 ABG pO2 ABG HCO3 ABG Base Excess ABG Hemoglobin VBG pH Oxyhemoglobin Sodium 132 L Potassium Chloride 96.7 L Carbon Dioxide 21 L BUN 34 H Creatinine Glucose POC Glucose Lactic Acid Calcium 8.3 L AST ALT Alkaline Phosphatase 151 H CK-MB (CK-2) 7.1 H CK-MB (CK-2) Rel Index 5.2 H Total Protein Albumin 3.3 L TSH Urine WBC (Auto) Salicylates 01/09/17 01/09/17 01/09/17 10:16 10:16 10:16 WBC RBC Hgb Hct MCV MCH RDW Plt Count Lymph % (Auto) [place] % (Auto) Eos % (Auto) [place] # Seg Neutrophils % Seg Neuts % (Manual) Lymphocytes % (Manual) Seg Neutrophils # Seg Neutrophils # Man Lymphocytes # (Manual) APTT POC ABG pH ABG pH POC ABG pCO2 POC ABG pO2 ABG pO2 ABG HCO3 ABG Base Excess ABG Hemoglobin VBG pH 7.284 L Oxyhemoglobin Sodium Potassium Chloride Carbon Dioxide BUN Creatinine Glucose POC Glucose Lactic Acid Calcium AST ALT Alkaline Phosphatase CK-MB (CK-2) CK-MB (CK-2) Rel Index Total Protein Albumin TSH 52.800 H Urine WBC (Auto) Salicylates < 0.3 L 01/09/17 01/09/17 01/09/17 10:23 11:14 12:49 WBC RBC Hgb Hct MCV MCH RDW Plt Count Lymph % (Auto) [place] % (Auto) Eos % (Auto) [place] # Seg Neutrophils % Seg Neuts % (Manual) Lymphocytes % (Manual) Seg Neutrophils # Seg Neutrophils # Man Lymphocytes # (Manual) APTT POC ABG pH ABG pH POC ABG pCO2 POC ABG pO2 643 H ABG pO2 ABG HCO3 ABG Base Excess ABG Hemoglobin VBG pH Oxyhemoglobin Sodium Potassium Chloride Carbon Dioxide BUN Creatinine Glucose POC Glucose < 40 L Lactic Acid Calcium AST ALT Alkaline Phosphatase CK-MB (CK-2) CK-MB (CK-2) Rel Index Total Protein Albumin TSH Urine WBC (Auto) 61.0 H Salicylates 01/09/17 01/09/17 01/09/17 13:13 14:21 15:09 WBC RBC Hgb Hct MCV MCH RDW Plt Count Lymph % (Auto) [place] % (Auto) Eos % (Auto) [place] # Seg Neutrophils % Seg Neuts % (Manual) Lymphocytes % (Manual) Seg Neutrophils # Seg Neutrophils # Man Lymphocytes # (Manual) APTT POC ABG pH ABG pH POC ABG pCO2 POC ABG pO2 ABG pO2 ABG HCO3 ABG Base Excess ABG Hemoglobin VBG pH Oxyhemoglobin Sodium Potassium Chloride Carbon Dioxide BUN Creatinine Glucose POC Glucose 128 H 65 L 120 H Lactic Acid Calcium AST ALT Alkaline Phosphatase CK-MB (CK-2) CK-MB (CK-2) Rel Index Total Protein Albumin TSH Urine WBC (Auto) Salicylates 01/09/17 01/09/17 01/10/17 16:28 17:14 04:30 WBC 24.1 H RBC 3.38 L Hgb 8.5 L Hct 26.0 L MCV 77 L MCH 25 L RDW 17.9 H Plt Count 474 H Lymph % (Auto) [place] % (Auto) Eos % (Auto) [place] # Seg Neutrophils % Seg Neuts % (Manual) 88.0 H Lymphocytes % (Manual) 4.0 L Seg Neutrophils # Seg Neutrophils # Man 21.2 H Lymphocytes # (Manual) 1.0 L APTT POC ABG pH ABG pH POC ABG pCO2 POC ABG pO2 ABG pO2 ABG HCO3 ABG Base Excess ABG Hemoglobin VBG pH Oxyhemoglobin Sodium Potassium Chloride Carbon Dioxide BUN Creatinine Glucose POC Glucose 44 L 112 H Lactic Acid Calcium AST ALT Alkaline Phosphatase CK-MB (CK-2) CK-MB (CK-2) Rel Index Total Protein Albumin TSH Urine WBC (Auto) Salicylates 01/10/17 01/10/17 01/10/17 04:30 05:41 05:45 WBC RBC Hgb Hct MCV MCH RDW Plt Count Lymph % (Auto) [place] % (Auto) Eos % (Auto) [place] # Seg Neutrophils % Seg Neuts % (Manual) Lymphocytes % (Manual) Seg Neutrophils # Seg Neutrophils # Man Lymphocytes # (Manual) APTT POC ABG pH ABG pH POC ABG pCO2 26.6 L POC ABG pO2 207 H ABG pO2 ABG HCO3 ABG Base Excess ABG Hemoglobin VBG pH Oxyhemoglobin Sodium Potassium Chloride Carbon Dioxide 17 L BUN 27 H Creatinine Glucose POC Glucose 68 L Lactic Acid Calcium 7.5 L AST ALT Alkaline Phosphatase CK-MB (CK-2) CK-MB (CK-2) Rel Index Total Protein Albumin TSH Urine WBC (Auto) Salicylates 01/10/17 01/10/17 01/10/17 07:47 10:50 13:41 WBC RBC Hgb Hct MCV MCH RDW Plt Count Lymph % (Auto) [place] % (Auto) Eos % (Auto) [place] # Seg Neutrophils % Seg Neuts % (Manual) Lymphocytes % (Manual) Seg Neutrophils # Seg Neutrophils # Man Lymphocytes # (Manual) APTT POC ABG pH ABG pH POC ABG pCO2 POC ABG pO2 ABG pO2 ABG HCO3 ABG Base Excess ABG Hemoglobin VBG pH Oxyhemoglobin Sodium Potassium Chloride Carbon Dioxide BUN Creatinine Glucose POC Glucose 148 H 165 H 114 H Lactic Acid Calcium AST ALT Alkaline Phosphatase CK-MB (CK-2) CK-MB (CK-2) Rel Index Total Protein Albumin TSH Urine WBC (Auto) Salicylates 01/10/17 01/10/17 01/10/17 20:20 21:39 23:24 WBC RBC Hgb Hct MCV MCH RDW Plt Count Lymph % (Auto) [place] % (Auto) Eos % (Auto) [place] # Seg Neutrophils % Seg Neuts % (Manual) Lymphocytes % (Manual) Seg Neutrophils # Seg Neutrophils # Man Lymphocytes # (Manual) APTT POC ABG pH ABG pH POC ABG pCO2 POC ABG pO2 ABG pO2 ABG HCO3 ABG Base Excess ABG Hemoglobin VBG pH Oxyhemoglobin Sodium Potassium Chloride Carbon Dioxide BUN Creatinine Glucose POC Glucose 150 H 175 H 155 H Lactic Acid Calcium AST ALT Alkaline Phosphatase CK-MB (CK-2) CK-MB (CK-2) Rel Index Total Protein Albumin TSH Urine WBC (Auto) Salicylates 01/11/17 01/11/17 01/11/17 00:19 04:06 05:20 WBC 15.2 H RBC 3.40 L Hgb 8.9 L Hct 26.3 L MCV 78 L MCH 26 L RDW 18.6 H Plt Count 462 H Lymph % (Auto) 13.2 L [place] % (Auto) Eos % (Auto) [place] # Seg Neutrophils % 80.8 H Seg Neuts % (Manual) Lymphocytes % (Manual) Seg Neutrophils # 12.3 H Seg Neutrophils # Man Lymphocytes # (Manual) APTT POC ABG pH 7.463 H ABG pH POC ABG pCO2 26.2 L POC ABG pO2 185 H ABG pO2 ABG HCO3 ABG Base Excess ABG Hemoglobin VBG pH Oxyhemoglobin Sodium Potassium Chloride Carbon Dioxide BUN Creatinine Glucose POC Glucose 163 H Lactic Acid Calcium AST ALT Alkaline Phosphatase CK-MB (CK-2) CK-MB (CK-2) Rel Index Total Protein Albumin TSH Urine WBC (Auto) Salicylates 01/11/17 01/11/17 01/11/17 05:20 06:21 07:57 WBC RBC Hgb Hct MCV MCH RDW Plt Count Lymph % (Auto) [place] % (Auto) Eos % (Auto) [place] # Seg Neutrophils % Seg Neuts % (Manual) Lymphocytes % (Manual) Seg Neutrophils # Seg Neutrophils # Man Lymphocytes # (Manual) APTT POC ABG pH ABG pH POC ABG pCO2 POC ABG pO2 ABG pO2 ABG HCO3 ABG Base Excess ABG Hemoglobin VBG pH Oxyhemoglobin Sodium Potassium 3.4 L Chloride 111.5 H Carbon Dioxide 17 L BUN Creatinine Glucose 147 H POC Glucose 139 H 188 H Lactic Acid Calcium 8.0 L AST ALT Alkaline Phosphatase CK-MB (CK-2) CK-MB (CK-2) Rel Index Total Protein Albumin TSH Urine WBC (Auto) Salicylates 01/11/17 01/11/17 01/11/17 11:46 16:50 23:15 WBC RBC Hgb Hct MCV MCH RDW Plt Count Lymph % (Auto) [place] % (Auto) Eos % (Auto) [place] # Seg Neutrophils % Seg Neuts % (Manual) Lymphocytes % (Manual) Seg Neutrophils # Seg Neutrophils # Man Lymphocytes # (Manual) APTT POC ABG pH ABG pH POC ABG pCO2 POC ABG pO2 ABG pO2 ABG HCO3 ABG Base Excess ABG Hemoglobin VBG pH Oxyhemoglobin Sodium Potassium Chloride Carbon Dioxide BUN Creatinine Glucose POC Glucose 199 H 235 H 155 H Lactic Acid Calcium AST ALT Alkaline Phosphatase CK-MB (CK-2) CK-MB (CK-2) Rel Index Total Protein Albumin TSH Urine WBC (Auto) Salicylates 01/12/17 01/12/17 01/12/17 05:02 06:56 14:50 WBC RBC Hgb Hct MCV MCH RDW Plt Count Lymph % (Auto) [place] % (Auto) Eos % (Auto) [place] # Seg Neutrophils % Seg Neuts % (Manual) Lymphocytes % (Manual) Seg Neutrophils # Seg Neutrophils # Man Lymphocytes # (Manual) APTT POC ABG pH ABG pH POC ABG pCO2 28.0 L POC ABG pO2 178 H ABG pO2 ABG HCO3 ABG Base Excess ABG Hemoglobin VBG pH Oxyhemoglobin Sodium Potassium Chloride Carbon Dioxide BUN Creatinine Glucose POC Glucose 119 H 164 H Lactic Acid Calcium AST ALT Alkaline Phosphatase CK-MB (CK-2) CK-MB (CK-2) Rel Index Total Protein Albumin TSH Urine WBC (Auto) Salicylates 01/13/17 01/13/17 01/13/17 03:37 03:37 04:26 WBC RBC 3.61 L Hgb 9.3 L Hct 28.0 L MCV 78 L MCH 26 L RDW 18.2 H Plt Count Lymph % (Auto) [place] % (Auto) Eos % (Auto) [place] # Seg Neutrophils % Seg Neuts % (Manual) Lymphocytes % (Manual) Seg Neutrophils # Seg Neutrophils # Man Lymphocytes # (Manual) APTT POC ABG pH 7.485 H ABG pH POC ABG pCO2 25.4 L POC ABG pO2 73 L ABG pO2 ABG HCO3 ABG Base Excess ABG Hemoglobin VBG pH Oxyhemoglobin Sodium Potassium Chloride 112.4 H Carbon Dioxide 19 L BUN Creatinine Glucose 118 H POC Glucose Lactic Acid Calcium 8.0 L AST ALT Alkaline Phosphatase CK-MB (CK-2) CK-MB (CK-2) Rel Index Total Protein Albumin TSH Urine WBC (Auto) Salicylates 01/13/17 01/13/17 01/13/17 06:15 11:50 17:31 WBC RBC Hgb Hct MCV MCH RDW Plt Count Lymph % (Auto) [place] % (Auto) Eos % (Auto) [place] # Seg Neutrophils % Seg Neuts % (Manual) Lymphocytes % (Manual) Seg Neutrophils # Seg Neutrophils # Man Lymphocytes # (Manual) APTT POC ABG pH ABG pH POC ABG pCO2 POC ABG pO2 ABG pO2 ABG HCO3 ABG Base Excess ABG Hemoglobin VBG pH Oxyhemoglobin Sodium Potassium Chloride Carbon Dioxide BUN Creatinine Glucose POC Glucose 116 H 171 H 203 H Lactic Acid Calcium AST ALT Alkaline Phosphatase CK-MB (CK-2) CK-MB (CK-2) Rel Index Total Protein Albumin TSH Urine WBC (Auto) Salicylates 01/14/17 01/14/17 01/14/17 00:02 04:50 04:50 WBC RBC 3.32 L Hgb 8.5 L Hct 26.1 L MCV 79 L MCH 26 L RDW 18.2 H Plt Count Lymph % (Auto) [place] % (Auto) 9.0 H Eos % (Auto) [place] # Seg Neutrophils % Seg Neuts % (Manual) Lymphocytes % (Manual) Seg Neutrophils # Seg Neutrophils # Man Lymphocytes # (Manual) APTT POC ABG pH ABG pH POC ABG pCO2 POC ABG pO2 ABG pO2 ABG HCO3 ABG Base Excess ABG Hemoglobin VBG pH Oxyhemoglobin Sodium Potassium Chloride 112.5 H Carbon Dioxide BUN Creatinine Glucose 149 H POC Glucose 157 H Lactic Acid Calcium 8.1 L AST ALT Alkaline Phosphatase CK-MB (CK-2) CK-MB (CK-2) Rel Index Total Protein Albumin TSH Urine WBC (Auto) Salicylates 01/14/17 01/14/17 01/14/17 05:10 11:27 14:07 WBC RBC Hgb Hct MCV MCH RDW Plt Count Lymph % (Auto) [place] % (Auto) Eos % (Auto) [place] # Seg Neutrophils % Seg Neuts % (Manual) Lymphocytes % (Manual) Seg Neutrophils # Seg Neutrophils # Man Lymphocytes # (Manual) APTT POC ABG pH ABG pH POC ABG pCO2 POC ABG pO2 ABG pO2 ABG HCO3 ABG Base Excess ABG Hemoglobin VBG pH Oxyhemoglobin Sodium Potassium Chloride Carbon Dioxide BUN Creatinine Glucose POC Glucose 176 H 147 H Lactic Acid Calcium AST ALT Alkaline Phosphatase CK-MB (CK-2) CK-MB (CK-2) Rel Index Total Protein Albumin TSH Urine WBC (Auto) 53.0 H Salicylates 01/14/17 01/15/17 01/15/17 16:52 00:04 05:26 WBC RBC Hgb Hct MCV MCH RDW Plt Count Lymph % (Auto) [place] % (Auto) Eos % (Auto) [place] # Seg Neutrophils % Seg Neuts % (Manual) Lymphocytes % (Manual) Seg Neutrophils # Seg Neutrophils # Man Lymphocytes # (Manual) APTT POC ABG pH ABG pH POC ABG pCO2 POC ABG pO2 ABG pO2 ABG HCO3 ABG Base Excess ABG Hemoglobin VBG pH Oxyhemoglobin Sodium Potassium Chloride Carbon Dioxide BUN Creatinine Glucose POC Glucose 131 H 193 H 215 H Lactic Acid Calcium AST ALT Alkaline Phosphatase CK-MB (CK-2) CK-MB (CK-2) Rel Index Total Protein Albumin TSH Urine WBC (Auto) Salicylates 01/15/17 01/15/17 01/15/17 11:49 17:47 21:33 WBC RBC Hgb Hct MCV MCH RDW Plt Count Lymph % (Auto) [place] % (Auto) Eos % (Auto) [place] # Seg Neutrophils % Seg Neuts % (Manual) Lymphocytes % (Manual) Seg Neutrophils # Seg Neutrophils # Man Lymphocytes # (Manual) APTT POC ABG pH ABG pH POC ABG pCO2 POC ABG pO2 ABG pO2 ABG HCO3 ABG Base Excess ABG Hemoglobin VBG pH Oxyhemoglobin Sodium Potassium Chloride Carbon Dioxide BUN Creatinine Glucose POC Glucose 121 H 211 H 275 H Lactic Acid Calcium AST ALT Alkaline Phosphatase CK-MB (CK-2) CK-MB (CK-2) Rel Index Total Protein Albumin TSH Urine WBC (Auto) Salicylates 01/16/17 01/16/17 01/16/17 04:30 05:28 13:45 WBC RBC Hgb Hct MCV MCH RDW Plt Count Lymph % (Auto) [place] % (Auto) Eos % (Auto) [place] # Seg Neutrophils % Seg Neuts % (Manual) Lymphocytes % (Manual) Seg Neutrophils # Seg Neutrophils # Man Lymphocytes # (Manual) APTT POC ABG pH ABG pH 7.457 H POC ABG pCO2 POC ABG pO2 ABG pO2 55.1 L ABG HCO3 19.4 L ABG Base Excess -4.0 L ABG Hemoglobin 6.8 L VBG pH Oxyhemoglobin 94.9 L Sodium Potassium Chloride Carbon Dioxide BUN Creatinine Glucose POC Glucose 271 H 236 H Lactic Acid Calcium AST ALT Alkaline Phosphatase CK-MB (CK-2) CK-MB (CK-2) Rel Index Total Protein Albumin TSH Urine WBC (Auto) Salicylates 01/16/17 01/17/17 01/17/17 21:39 04:10 04:10 WBC 4.4 L RBC 2.98 L Hgb 7.7 L Hct 23.3 L MCV 78 L MCH 26 L RDW 18.1 H Plt Count Lymph % (Auto) [place] % (Auto) Eos % (Auto) [place] # Seg Neutrophils % Seg Neuts % (Manual) Lymphocytes % (Manual) Seg Neutrophils # Seg Neutrophils # Man Lymphocytes # (Manual) APTT POC ABG pH ABG pH POC ABG pCO2 POC ABG pO2 ABG pO2 ABG HCO3 ABG Base Excess ABG Hemoglobin VBG pH Oxyhemoglobin Sodium Potassium 3.3 L Chloride 108.7 H Carbon Dioxide 20 L BUN 8 L Creatinine Glucose 202 H POC Glucose 258 H Lactic Acid Calcium 7.6 L AST ALT Alkaline Phosphatase CK-MB (CK-2) CK-MB (CK-2) Rel Index Total Protein Albumin TSH Urine WBC (Auto) Salicylates 01/17/17 01/17/17 01/17/17 04:35 12:23 16:01 WBC RBC Hgb Hct MCV MCH RDW Plt Count Lymph % (Auto) [place] % (Auto) Eos % (Auto) [place] # Seg Neutrophils % Seg Neuts % (Manual) Lymphocytes % (Manual) Seg Neutrophils # Seg Neutrophils # Man Lymphocytes # (Manual) APTT POC ABG pH ABG pH POC ABG pCO2 POC ABG pO2 ABG pO2 160.3 H ABG HCO3 ABG Base Excess -2.3 L ABG Hemoglobin 7.9 L VBG pH Oxyhemoglobin Sodium Potassium Chloride Carbon Dioxide BUN Creatinine Glucose POC Glucose 321 H 239 H Lactic Acid Calcium AST ALT Alkaline Phosphatase CK-MB (CK-2) CK-MB (CK-2) Rel Index Total Protein Albumin TSH Urine WBC (Auto) Salicylates 01/18/17 01/18/17 01/18/17 05:07 12:09 17:54 WBC RBC Hgb Hct MCV MCH RDW Plt Count Lymph % (Auto) [place] % (Auto) Eos % (Auto) [place] # Seg Neutrophils % Seg Neuts % (Manual) Lymphocytes % (Manual) Seg Neutrophils # Seg Neutrophils # Man Lymphocytes # (Manual) APTT POC ABG pH ABG pH POC ABG pCO2 POC ABG pO2 ABG pO2 ABG HCO3 ABG Base Excess ABG Hemoglobin VBG pH Oxyhemoglobin Sodium Potassium Chloride Carbon Dioxide BUN Creatinine Glucose POC Glucose 155 H 203 H 132 H Lactic Acid Calcium AST ALT Alkaline Phosphatase CK-MB (CK-2) CK-MB (CK-2) Rel Index Total Protein Albumin TSH Urine WBC (Auto) Salicylates 01/18/17 01/19/17 01/19/17 23:43 04:28 12:11 WBC RBC Hgb Hct MCV MCH RDW Plt Count Lymph % (Auto) [place] % (Auto) Eos % (Auto) [place] # Seg Neutrophils % Seg Neuts % (Manual) Lymphocytes % (Manual) Seg Neutrophils # Seg Neutrophils # Man Lymphocytes # (Manual) APTT POC ABG pH ABG pH POC ABG pCO2 POC ABG pO2 ABG pO2 ABG HCO3 ABG Base Excess ABG Hemoglobin VBG pH Oxyhemoglobin Sodium Potassium Chloride Carbon Dioxide BUN Creatinine Glucose POC Glucose 125 H 182 H 153 H Lactic Acid Calcium AST ALT Alkaline Phosphatase CK-MB (CK-2) CK-MB (CK-2) Rel Index Total Protein Albumin TSH Urine WBC (Auto) Salicylates 01/19/17 01/20/17 01/20/17 17:23 00:12 05:44 WBC RBC Hgb Hct MCV MCH RDW Plt Count Lymph % (Auto) [place] % (Auto) Eos % (Auto) [place] # Seg Neutrophils % Seg Neuts % (Manual) Lymphocytes % (Manual) Seg Neutrophils # Seg Neutrophils # Man Lymphocytes # (Manual) APTT POC ABG pH ABG pH POC ABG pCO2 POC ABG pO2 ABG pO2 ABG HCO3 ABG Base Excess ABG Hemoglobin VBG pH Oxyhemoglobin Sodium Potassium Chloride Carbon Dioxide BUN Creatinine Glucose POC Glucose 66 L 139 H 176 H Lactic Acid Calcium AST ALT Alkaline Phosphatase CK-MB (CK-2) CK-MB (CK-2) Rel Index Total Protein Albumin TSH Urine WBC (Auto) Salicylates 01/20/17 01/20/17 01/20/17 11:48 17:42 23:43 WBC RBC Hgb Hct MCV MCH RDW Plt Count Lymph % (Auto) [place] % (Auto) Eos % (Auto) [place] # Seg Neutrophils % Seg Neuts % (Manual) Lymphocytes % (Manual) Seg Neutrophils # Seg Neutrophils # Man Lymphocytes # (Manual) APTT POC ABG pH ABG pH POC ABG pCO2 POC ABG pO2 ABG pO2 ABG HCO3 ABG Base Excess ABG Hemoglobin VBG pH Oxyhemoglobin Sodium Potassium Chloride Carbon Dioxide BUN Creatinine Glucose POC Glucose 218 H 132 H 178 H Lactic Acid Calcium AST ALT Alkaline Phosphatase CK-MB (CK-2) CK-MB (CK-2) Rel Index Total Protein Albumin TSH Urine WBC (Auto) Salicylates 01/21/17 01/21/17 01/21/17 05:34 11:17 23:37 WBC RBC Hgb Hct MCV MCH RDW Plt Count Lymph % (Auto) [place] % (Auto) Eos % (Auto) [place] # Seg Neutrophils % Seg Neuts % (Manual) Lymphocytes % (Manual) Seg Neutrophils # Seg Neutrophils # Man Lymphocytes # (Manual) APTT POC ABG pH ABG pH POC ABG pCO2 POC ABG pO2 ABG pO2 ABG HCO3 ABG Base Excess ABG Hemoglobin VBG pH Oxyhemoglobin Sodium Potassium Chloride Carbon Dioxide BUN Creatinine Glucose POC Glucose 106 H 213 H 140 H Lactic Acid Calcium AST ALT Alkaline Phosphatase CK-MB (CK-2) CK-MB (CK-2) Rel Index Total Protein Albumin TSH Urine WBC (Auto) Salicylates 01/22/17 01/22/17 01/22/17 04:00 04:00 04:58 WBC RBC 3.26 L Hgb 8.3 L Hct 25.5 L MCV 78 L MCH 25 L RDW 17.9 H Plt Count Lymph % (Auto) [place] % (Auto) 7.9 H Eos % (Auto) 6.2 H [place] # Seg Neutrophils % Seg Neuts % (Manual) Lymphocytes % (Manual) Seg Neutrophils # Seg Neutrophils # Man Lymphocytes # (Manual) APTT POC ABG pH ABG pH POC ABG pCO2 POC ABG pO2 ABG pO2 ABG HCO3 ABG Base Excess ABG Hemoglobin VBG pH Oxyhemoglobin Sodium Potassium Chloride 95.5 L Carbon Dioxide 31 H D BUN Creatinine Glucose 134 H POC Glucose 146 H Lactic Acid Calcium AST 44 H ALT Alkaline Phosphatase 379 H CK-MB (CK-2) CK-MB (CK-2) Rel Index Total Protein Albumin 2.7 L TSH Urine WBC (Auto) Salicylates 01/22/17 01/22/17 01/22/17 12:12 18:12 23:39 WBC RBC Hgb Hct MCV MCH RDW Plt Count Lymph % (Auto) [place] % (Auto) Eos % (Auto) [place] # Seg Neutrophils % Seg Neuts % (Manual) Lymphocytes % (Manual) Seg Neutrophils # Seg Neutrophils # Man Lymphocytes # (Manual) APTT POC ABG pH ABG pH POC ABG pCO2 POC ABG pO2 ABG pO2 ABG HCO3 ABG Base Excess ABG Hemoglobin VBG pH Oxyhemoglobin Sodium Potassium Chloride Carbon Dioxide BUN Creatinine Glucose POC Glucose 255 H 182 H 134 H Lactic Acid Calcium AST ALT Alkaline Phosphatase CK-MB (CK-2) CK-MB (CK-2) Rel Index Total Protein Albumin TSH Urine WBC (Auto) Salicylates 01/23/17 01/23/17 01/23/17 04:43 12:12 17:36 WBC RBC Hgb Hct MCV MCH RDW Plt Count Lymph % (Auto) [place] % (Auto) Eos % (Auto) [place] # Seg Neutrophils % Seg Neuts % (Manual) Lymphocytes % (Manual) Seg Neutrophils # Seg Neutrophils # Man Lymphocytes # (Manual) APTT POC ABG pH ABG pH POC ABG pCO2 POC ABG pO2 ABG pO2 ABG HCO3 ABG Base Excess ABG Hemoglobin VBG pH Oxyhemoglobin Sodium Potassium Chloride Carbon Dioxide BUN Creatinine Glucose POC Glucose 218 H 128 H 156 H Lactic Acid Calcium AST ALT Alkaline Phosphatase CK-MB (CK-2) CK-MB (CK-2) Rel Index Total Protein Albumin TSH Urine WBC (Auto) Salicylates 01/24/17 01/24/17 01/24/17 00:08 05:16 11:40 WBC RBC Hgb Hct MCV MCH RDW Plt Count Lymph % (Auto) [place] % (Auto) Eos % (Auto) [place] # Seg Neutrophils % Seg Neuts % (Manual) Lymphocytes % (Manual) Seg Neutrophils # Seg Neutrophils # Man Lymphocytes # (Manual) APTT POC ABG pH ABG pH POC ABG pCO2 POC ABG pO2 ABG pO2 ABG HCO3 ABG Base Excess ABG Hemoglobin VBG pH Oxyhemoglobin Sodium Potassium Chloride Carbon Dioxide BUN Creatinine Glucose POC Glucose 129 H 169 H 187 H Lactic Acid Calcium AST ALT Alkaline Phosphatase CK-MB (CK-2) CK-MB (CK-2) Rel Index Total Protein Albumin TSH Urine WBC (Auto) Salicylates 01/24/17 01/24/17 01/25/17 17:43 23:23 04:56 WBC RBC Hgb Hct MCV MCH RDW Plt Count Lymph % (Auto) [place] % (Auto) Eos % (Auto) [place] # Seg Neutrophils % Seg Neuts % (Manual) Lymphocytes % (Manual) Seg Neutrophils # Seg Neutrophils # Man Lymphocytes # (Manual) APTT POC ABG pH ABG pH POC ABG pCO2 POC ABG pO2 ABG pO2 ABG HCO3 ABG Base Excess ABG Hemoglobin VBG pH Oxyhemoglobin Sodium Potassium Chloride Carbon Dioxide BUN Creatinine Glucose POC Glucose 215 H 222 H 210 H Lactic Acid Calcium AST ALT Alkaline Phosphatase CK-MB (CK-2) CK-MB (CK-2) Rel Index Total Protein Albumin TSH Urine WBC (Auto) Salicylates 01/25/17 01/25/17 01/26/17 11:52 17:37 00:02 WBC RBC Hgb Hct MCV MCH RDW Plt Count Lymph % (Auto) [place] % (Auto) Eos % (Auto) [place] # Seg Neutrophils % Seg Neuts % (Manual) Lymphocytes % (Manual) Seg Neutrophils # Seg Neutrophils # Man Lymphocytes # (Manual) APTT POC ABG pH ABG pH POC ABG pCO2 POC ABG pO2 ABG pO2 ABG HCO3 ABG Base Excess ABG Hemoglobin VBG pH Oxyhemoglobin Sodium Potassium Chloride Carbon Dioxide BUN Creatinine Glucose POC Glucose 284 H 218 H 192 H Lactic Acid Calcium AST ALT Alkaline Phosphatase CK-MB (CK-2) CK-MB (CK-2) Rel Index Total Protein Albumin TSH Urine WBC (Auto) Salicylates 01/26/17 01/26/17 01/26/17 05:33 12:17 17:50 WBC RBC Hgb Hct MCV MCH RDW Plt Count Lymph % (Auto) [place] % (Auto) Eos % (Auto) [place] # Seg Neutrophils % Seg Neuts % (Manual) Lymphocytes % (Manual) Seg Neutrophils # Seg Neutrophils # Man Lymphocytes # (Manual) APTT POC ABG pH ABG pH POC ABG pCO2 POC ABG pO2 ABG pO2 ABG HCO3 ABG Base Excess ABG Hemoglobin VBG pH Oxyhemoglobin Sodium Potassium Chloride Carbon Dioxide BUN Creatinine Glucose POC Glucose 199 H 227 H 229 H Lactic Acid Calcium AST ALT Alkaline Phosphatase CK-MB (CK-2) CK-MB (CK-2) Rel Index Total Protein Albumin TSH Urine WBC (Auto) Salicylates 01/26/17 01/27/17 01/27/17 23:57 05:31 11:42 WBC RBC Hgb Hct MCV MCH RDW Plt Count Lymph % (Auto) [place] % (Auto) Eos % (Auto) [place] # Seg Neutrophils % Seg Neuts % (Manual) Lymphocytes % (Manual) Seg Neutrophils # Seg Neutrophils # Man Lymphocytes # (Manual) APTT POC ABG pH ABG pH POC ABG pCO2 POC ABG pO2 ABG pO2 ABG HCO3 ABG Base Excess ABG Hemoglobin VBG pH Oxyhemoglobin Sodium Potassium Chloride Carbon Dioxide BUN Creatinine Glucose POC Glucose 186 H 285 H 260 H Lactic Acid Calcium AST ALT Alkaline Phosphatase CK-MB (CK-2) CK-MB (CK-2) Rel Index Total Protein Albumin TSH Urine WBC (Auto) Salicylates 01/27/17 01/27/17 01/27/17 17:47 23:58 Unknown WBC 12.1 H RBC 3.28 L Hgb 8.5 L Hct 25.5 L MCV 78 L MCH 26 L RDW 16.8 H Plt Count 601 H Lymph % (Auto) [place] % (Auto) Eos % (Auto) [place] # Seg Neutrophils % Seg Neuts % (Manual) Lymphocytes % (Manual) Seg Neutrophils # Seg Neutrophils # Man Lymphocytes # (Manual) APTT POC ABG pH ABG pH POC ABG pCO2 POC ABG pO2 ABG pO2 ABG HCO3 ABG Base Excess ABG Hemoglobin VBG pH Oxyhemoglobin Sodium Potassium Chloride Carbon Dioxide BUN Creatinine Glucose POC Glucose 329 H 225 H Lactic Acid Calcium AST ALT Alkaline Phosphatase CK-MB (CK-2) CK-MB (CK-2) Rel Index Total Protein Albumin TSH Urine WBC (Auto) Salicylates 01/27/17 01/28/17 01/28/17 Unknown 03:44 03:44 WBC RBC 3.14 L Hgb 8.2 L Hct 24.1 L MCV 77 L MCH 26 L RDW 16.9 H Plt Count 567 H Lymph % (Auto) [place] % (Auto) Eos % (Auto) [place] # Seg Neutrophils % Seg Neuts % (Manual) Lymphocytes % (Manual) Seg Neutrophils # Seg Neutrophils # Man Lymphocytes # (Manual) APTT POC ABG pH ABG pH POC ABG pCO2 POC ABG pO2 ABG pO2 ABG HCO3 ABG Base Excess ABG Hemoglobin VBG pH Oxyhemoglobin Sodium 128 L Potassium 5.4 H Chloride 87.5 L Carbon Dioxide BUN 44 H 42 H Creatinine Glucose 250 H 128 H POC Glucose Lactic Acid Calcium AST ALT Alkaline Phosphatase CK-MB (CK-2) CK-MB (CK-2) Rel Index Total Protein Albumin TSH Urine WBC (Auto) Salicylates 01/28/17 01/28/17 01/28/17 11:43 16:47 17:52 WBC RBC Hgb Hct MCV MCH RDW Plt Count Lymph % (Auto) [place] % (Auto) Eos % (Auto) [place] # Seg Neutrophils % Seg Neuts % (Manual) Lymphocytes % (Manual) Seg Neutrophils # Seg Neutrophils # Man Lymphocytes # (Manual) APTT POC ABG pH ABG pH POC ABG pCO2 POC ABG pO2 ABG pO2 ABG HCO3 ABG Base Excess ABG Hemoglobin VBG pH Oxyhemoglobin Sodium Potassium Chloride Carbon Dioxide BUN Creatinine Glucose POC Glucose 351 H 249 H Lactic Acid Calcium AST ALT Alkaline Phosphatase CK-MB (CK-2) CK-MB (CK-2) Rel Index Total Protein Albumin TSH Urine WBC (Auto) > 182.0 H Salicylates 01/29/17 01/29/17 01/29/17 05:25 05:25 09:32 WBC 13.6 H RBC 3.25 L Hgb 8.3 L Hct 25.1 L MCV 77 L MCH 26 L RDW 16.8 H Plt Count 514 H Lymph % (Auto) [place] % (Auto) Eos % (Auto) [place] # Seg Neutrophils % Seg Neuts % (Manual) Lymphocytes % (Manual) Seg Neutrophils # Seg Neutrophils # Man Lymphocytes # (Manual) APTT POC ABG pH ABG pH POC ABG pCO2 POC ABG pO2 ABG pO2 ABG HCO3 ABG Base Excess ABG Hemoglobin VBG pH Oxyhemoglobin Sodium Potassium Chloride 97.8 L Carbon Dioxide BUN 34 H Creatinine Glucose 222 H POC Glucose Lactic Acid 2.50 H* Calcium AST ALT Alkaline Phosphatase CK-MB (CK-2) CK-MB (CK-2) Rel Index Total Protein Albumin TSH Urine WBC (Auto) Salicylates 01/29/17 01/29/17 01/29/17 11:56 18:11 23:55 WBC RBC Hgb Hct MCV MCH RDW Plt Count Lymph % (Auto) [place] % (Auto) Eos % (Auto) [place] # Seg Neutrophils % Seg Neuts % (Manual) Lymphocytes % (Manual) Seg Neutrophils # Seg Neutrophils # Man Lymphocytes # (Manual) APTT POC ABG pH ABG pH POC ABG pCO2 POC ABG pO2 ABG pO2 ABG HCO3 ABG Base Excess ABG Hemoglobin VBG pH Oxyhemoglobin Sodium Potassium Chloride Carbon Dioxide BUN Creatinine Glucose POC Glucose 261 H 215 H 176 H Lactic Acid Calcium AST ALT Alkaline Phosphatase CK-MB (CK-2) CK-MB (CK-2) Rel Index Total Protein Albumin TSH Urine WBC (Auto) Salicylates 01/30/17 01/30/17 01/30/17 05:31 05:31 05:34 WBC 15.2 H RBC 3.09 L Hgb 7.9 L Hct 23.9 L MCV 77 L MCH 26 L RDW 16.9 H Plt Count 569 H Lymph % (Auto) [place] % (Auto) Eos % (Auto) [place] # Seg Neutrophils % Seg Neuts % (Manual) Lymphocytes % (Manual) Seg Neutrophils # Seg Neutrophils # Man Lymphocytes # (Manual) APTT POC ABG pH ABG pH POC ABG pCO2 POC ABG pO2 ABG pO2 ABG HCO3 ABG Base Excess ABG Hemoglobin VBG pH Oxyhemoglobin Sodium Potassium Chloride Carbon Dioxide BUN 24 H Creatinine Glucose 235 H POC Glucose 243 H Lactic Acid Calcium AST ALT Alkaline Phosphatase CK-MB (CK-2) CK-MB (CK-2) Rel Index Total Protein Albumin TSH Urine WBC (Auto) Salicylates 01/30/17 01/30/17 01/30/17 11:38 17:58 23:29 WBC RBC Hgb Hct MCV MCH RDW Plt Count Lymph % (Auto) [place] % (Auto) Eos % (Auto) [place] # Seg Neutrophils % Seg Neuts % (Manual) Lymphocytes % (Manual) Seg Neutrophils # Seg Neutrophils # Man Lymphocytes # (Manual) APTT POC ABG pH ABG pH POC ABG pCO2 POC ABG pO2 ABG pO2 ABG HCO3 ABG Base Excess ABG Hemoglobin VBG pH Oxyhemoglobin Sodium Potassium Chloride Carbon Dioxide BUN Creatinine Glucose POC Glucose 298 H 208 H 245 H Lactic Acid Calcium AST ALT Alkaline Phosphatase CK-MB (CK-2) CK-MB (CK-2) Rel Index Total Protein Albumin TSH Urine WBC (Auto) Salicylates 01/31/17 01/31/17 01/31/17 04:39 04:39 05:57 WBC 11.4 H RBC 3.22 L Hgb 8.2 L Hct 24.9 L MCV 78 L MCH 25 L RDW 17.2 H Plt Count 576 H Lymph % (Auto) [place] % (Auto) Eos % (Auto) [place] # Seg Neutrophils % Seg Neuts % (Manual) Lymphocytes % (Manual) Seg Neutrophils # Seg Neutrophils # Man Lymphocytes # (Manual) APTT POC ABG pH ABG pH POC ABG pCO2 POC ABG pO2 ABG pO2 ABG HCO3 ABG Base Excess ABG Hemoglobin VBG pH Oxyhemoglobin Sodium Potassium Chloride Carbon Dioxide BUN Creatinine 0.7 L Glucose 223 H POC Glucose 264 H Lactic Acid Calcium AST ALT Alkaline Phosphatase CK-MB (CK-2) CK-MB (CK-2) Rel Index Total Protein Albumin TSH Urine WBC (Auto) Salicylates 01/31/17 01/31/17 01/31/17 12:23 17:41 18:55 WBC RBC Hgb Hct MCV MCH RDW Plt Count Lymph % (Auto) [place] % (Auto) Eos % (Auto) [place] # Seg Neutrophils % Seg Neuts % (Manual) Lymphocytes % (Manual) Seg Neutrophils # Seg Neutrophils # Man Lymphocytes # (Manual) APTT POC ABG pH ABG pH POC ABG pCO2 32.8 L POC ABG pO2 ABG pO2 ABG HCO3 ABG Base Excess ABG Hemoglobin VBG pH Oxyhemoglobin Sodium Potassium Chloride Carbon Dioxide BUN Creatinine Glucose POC Glucose 252 H 208 H Lactic Acid Calcium AST ALT Alkaline Phosphatase CK-MB (CK-2) CK-MB (CK-2) Rel Index Total Protein Albumin TSH Urine WBC (Auto) Salicylates 01/31/17 02/01/17 02/01/17 22:59 03:38 03:38 WBC RBC 2.81 L Hgb 7.4 L Hct 22.1 L MCV 79 L MCH 27 L RDW 17.0 H Plt Count 540 H Lymph % (Auto) [place] % (Auto) Eos % (Auto) [place] # Seg Neutrophils % Seg Neuts % (Manual) Lymphocytes % (Manual) Seg Neutrophils # Seg Neutrophils # Man Lymphocytes # (Manual) APTT POC ABG pH ABG pH POC ABG pCO2 POC ABG pO2 ABG pO2 ABG HCO3 ABG Base Excess ABG Hemoglobin VBG pH Oxyhemoglobin Sodium Potassium Chloride Carbon Dioxide 21 L BUN Creatinine 0.7 L Glucose POC Glucose 40 L Lactic Acid Calcium AST ALT Alkaline Phosphatase CK-MB (CK-2) CK-MB (CK-2) Rel Index Total Protein Albumin TSH Urine WBC (Auto) Salicylates 02/01/17 02/01/17 02/01/17 05:17 12:19 16:44 WBC RBC Hgb Hct MCV MCH RDW Plt Count Lymph % (Auto) [place] % (Auto) Eos % (Auto) [place] # Seg Neutrophils % Seg Neuts % (Manual) Lymphocytes % (Manual) Seg Neutrophils # Seg Neutrophils # Man Lymphocytes # (Manual) APTT POC ABG pH ABG pH POC ABG pCO2 POC ABG pO2 ABG pO2 ABG HCO3 ABG Base Excess ABG Hemoglobin VBG pH Oxyhemoglobin Sodium Potassium Chloride Carbon Dioxide BUN Creatinine Glucose POC Glucose 140 H 213 H 172 H Lactic Acid Calcium AST ALT Alkaline Phosphatase CK-MB (CK-2) CK-MB (CK-2) Rel Index Total Protein Albumin TSH Urine WBC (Auto) Salicylates 02/01/17 02/02/17 02/02/17 23:59 05:14 11:24 WBC RBC Hgb Hct MCV MCH RDW Plt Count Lymph % (Auto) [place] % (Auto) Eos % (Auto) [place] # Seg Neutrophils % Seg Neuts % (Manual) Lymphocytes % (Manual) Seg Neutrophils # Seg Neutrophils # Man Lymphocytes # (Manual) APTT POC ABG pH ABG pH POC ABG pCO2 POC ABG pO2 ABG pO2 ABG HCO3 ABG Base Excess ABG Hemoglobin VBG pH Oxyhemoglobin Sodium Potassium Chloride Carbon Dioxide BUN Creatinine Glucose POC Glucose 181 H 194 H 209 H Lactic Acid Calcium AST ALT Alkaline Phosphatase CK-MB (CK-2) CK-MB (CK-2) Rel Index Total Protein Albumin TSH Urine WBC (Auto) Salicylates 02/02/17 02/02/17 02/02/17 11:46 11:46 17:47 WBC RBC 2.94 L Hgb 7.5 L Hct 23.0 L MCV 78 L MCH 25 L RDW 16.9 H Plt Count 520 H Lymph % (Auto) [place] % (Auto) Eos % (Auto) [place] # Seg Neutrophils % Seg Neuts % (Manual) Lymphocytes % (Manual) Seg Neutrophils # Seg Neutrophils # Man Lymphocytes # (Manual) APTT POC ABG pH ABG pH POC ABG pCO2 POC ABG pO2 ABG pO2 ABG HCO3 ABG Base Excess ABG Hemoglobin VBG pH Oxyhemoglobin Sodium Potassium Chloride Carbon Dioxide BUN Creatinine 0.6 L Glucose 189 H POC Glucose 147 H Lactic Acid Calcium 8.1 L AST ALT Alkaline Phosphatase CK-MB (CK-2) CK-MB (CK-2) Rel Index Total Protein Albumin TSH Urine WBC (Auto) Salicylates 02/02/17 02/03/17 02/03/17 23:32 05:53 11:19 WBC RBC Hgb Hct MCV MCH RDW Plt Count Lymph % (Auto) [place] % (Auto) Eos % (Auto) [place] # Seg Neutrophils % Seg Neuts % (Manual) Lymphocytes % (Manual) Seg Neutrophils # Seg Neutrophils # Man Lymphocytes # (Manual) APTT POC ABG pH ABG pH POC ABG pCO2 POC ABG pO2 ABG pO2 ABG HCO3 ABG Base Excess ABG Hemoglobin VBG pH Oxyhemoglobin Sodium Potassium Chloride Carbon Dioxide BUN Creatinine Glucose POC Glucose 176 H 224 H 228 H Lactic Acid Calcium AST ALT Alkaline Phosphatase CK-MB (CK-2) CK-MB (CK-2) Rel Index Total Protein Albumin TSH Urine WBC (Auto) Salicylates 02/03/17 02/03/17 02/04/17 16:59 23:38 05:45 WBC RBC Hgb Hct MCV MCH RDW Plt Count Lymph % (Auto) [place] % (Auto) Eos % (Auto) [place] # Seg Neutrophils % Seg Neuts % (Manual) Lymphocytes % (Manual) Seg Neutrophils # Seg Neutrophils # Man Lymphocytes # (Manual) APTT POC ABG pH ABG pH POC ABG pCO2 POC ABG pO2 ABG pO2 ABG HCO3 ABG Base Excess ABG Hemoglobin VBG pH Oxyhemoglobin Sodium Potassium Chloride Carbon Dioxide BUN Creatinine Glucose POC Glucose 189 H 191 H 251 H Lactic Acid Calcium AST ALT Alkaline Phosphatase CK-MB (CK-2) CK-MB (CK-2) Rel Index Total Protein Albumin TSH Urine WBC (Auto) Salicylates 02/04/17 02/04/17 02/05/17 11:20 17:20 00:17 WBC RBC Hgb Hct MCV MCH RDW Plt Count Lymph % (Auto) [place] % (Auto) Eos % (Auto) [place] # Seg Neutrophils % Seg Neuts % (Manual) Lymphocytes % (Manual) Seg Neutrophils # Seg Neutrophils # Man Lymphocytes # (Manual) APTT POC ABG pH ABG pH POC ABG pCO2 POC ABG pO2 ABG pO2 ABG HCO3 ABG Base Excess ABG Hemoglobin VBG pH Oxyhemoglobin Sodium Potassium Chloride Carbon Dioxide BUN Creatinine Glucose POC Glucose 243 H 163 H 200 H Lactic Acid Calcium AST ALT Alkaline Phosphatase CK-MB (CK-2) CK-MB (CK-2) Rel Index Total Protein Albumin TSH Urine WBC (Auto) Salicylates 02/05/17 02/05/17 02/05/17 05:38 12:38 16:29 WBC RBC Hgb Hct MCV MCH RDW Plt Count Lymph % (Auto) [place] % (Auto) Eos % (Auto) [place] # Seg Neutrophils % Seg Neuts % (Manual) Lymphocytes % (Manual) Seg Neutrophils # Seg Neutrophils # Man Lymphocytes # (Manual) APTT POC ABG pH ABG pH POC ABG pCO2 POC ABG pO2 ABG pO2 ABG HCO3 ABG Base Excess ABG Hemoglobin VBG pH Oxyhemoglobin Sodium Potassium Chloride Carbon Dioxide BUN Creatinine Glucose POC Glucose 248 H 241 H 257 H Lactic Acid Calcium AST ALT Alkaline Phosphatase CK-MB (CK-2) CK-MB (CK-2) Rel Index Total Protein Albumin TSH Urine WBC (Auto) Salicylates 02/05/17 02/06/17 02/06/17 23:56 05:30 11:50 WBC RBC Hgb Hct MCV MCH RDW Plt Count Lymph % (Auto) [place] % (Auto) Eos % (Auto) [place] # Seg Neutrophils % Seg Neuts % (Manual) Lymphocytes % (Manual) Seg Neutrophils # Seg Neutrophils # Man Lymphocytes # (Manual) APTT POC ABG pH ABG pH POC ABG pCO2 POC ABG pO2 ABG pO2 ABG HCO3 ABG Base Excess ABG Hemoglobin VBG pH Oxyhemoglobin Sodium Potassium Chloride Carbon Dioxide BUN Creatinine Glucose POC Glucose 258 H 120 H 254 H Lactic Acid Calcium AST ALT Alkaline Phosphatase CK-MB (CK-2) CK-MB (CK-2) Rel Index Total Protein Albumin TSH Urine WBC (Auto) Salicylates 02/06/17 02/06/17 02/07/17 17:11 23:50 05:22 WBC RBC Hgb Hct MCV MCH RDW Plt Count Lymph % (Auto) [place] % (Auto) Eos % (Auto) [place] # Seg Neutrophils % Seg Neuts % (Manual) Lymphocytes % (Manual) Seg Neutrophils # Seg Neutrophils # Man Lymphocytes # (Manual) APTT POC ABG pH ABG pH POC ABG pCO2 POC ABG pO2 ABG pO2 ABG HCO3 ABG Base Excess ABG Hemoglobin VBG pH Oxyhemoglobin Sodium Potassium Chloride Carbon Dioxide BUN Creatinine Glucose POC Glucose 149 H 240 H 258 H Lactic Acid Calcium AST ALT Alkaline Phosphatase CK-MB (CK-2) CK-MB (CK-2) Rel Index Total Protein Albumin TSH Urine WBC (Auto) Salicylates 02/07/17 02/07/17 02/07/17 11:15 18:33 23:59 WBC RBC Hgb Hct MCV MCH RDW Plt Count Lymph % (Auto) [place] % (Auto) Eos % (Auto) [place] # Seg Neutrophils % Seg Neuts % (Manual) Lymphocytes % (Manual) Seg Neutrophils # Seg Neutrophils # Man Lymphocytes # (Manual) APTT POC ABG pH ABG pH POC ABG pCO2 POC ABG pO2 ABG pO2 ABG HCO3 ABG Base Excess ABG Hemoglobin VBG pH Oxyhemoglobin Sodium Potassium Chloride Carbon Dioxide BUN Creatinine Glucose POC Glucose 239 H 176 H 186 H Lactic Acid Calcium AST ALT Alkaline Phosphatase CK-MB (CK-2) CK-MB (CK-2) Rel Index Total Protein Albumin TSH Urine WBC (Auto) Salicylates 02/08/17 02/08/17 02/08/17 06:15 11:55 16:55 WBC RBC Hgb Hct MCV MCH RDW Plt Count Lymph % (Auto) [place] % (Auto) Eos % (Auto) [place] # Seg Neutrophils % Seg Neuts % (Manual) Lymphocytes % (Manual) Seg Neutrophils # Seg Neutrophils # Man Lymphocytes # (Manual) APTT POC ABG pH ABG pH POC ABG pCO2 POC ABG pO2 ABG pO2 ABG HCO3 ABG Base Excess ABG Hemoglobin VBG pH Oxyhemoglobin Sodium Potassium Chloride Carbon Dioxide BUN Creatinine Glucose POC Glucose 195 H 129 H 246 H Lactic Acid Calcium AST ALT Alkaline Phosphatase CK-MB (CK-2) CK-MB (CK-2) Rel Index Total Protein Albumin TSH Urine WBC (Auto) Salicylates 02/08/17 02/09/17 02/09/17 23:51 05:51 07:24 WBC 14.7 H RBC 3.39 L Hgb 8.9 L Hct 26.4 L MCV 78 L MCH 26 L RDW 18.4 H Plt Count 670 H Lymph % (Auto) 11.8 L [place] % (Auto) Eos % (Auto) [place] # Seg Neutrophils % 81.2 H Seg Neuts % (Manual) Lymphocytes % (Manual) Seg Neutrophils # 11.9 H Seg Neutrophils # Man Lymphocytes # (Manual) APTT POC ABG pH ABG pH POC ABG pCO2 POC ABG pO2 ABG pO2 ABG HCO3 ABG Base Excess ABG Hemoglobin VBG pH Oxyhemoglobin Sodium Potassium Chloride Carbon Dioxide BUN Creatinine Glucose POC Glucose 262 H 295 H Lactic Acid Calcium AST ALT Alkaline Phosphatase CK-MB (CK-2) CK-MB (CK-2) Rel Index Total Protein Albumin TSH Urine WBC (Auto) Salicylates 02/09/17 02/09/17 02/09/17 07:24 12:08 18:39 WBC RBC Hgb Hct MCV MCH RDW Plt Count Lymph % (Auto) [place] % (Auto) Eos % (Auto) [place] # Seg Neutrophils % Seg Neuts % (Manual) Lymphocytes % (Manual) Seg Neutrophils # Seg Neutrophils # Man Lymphocytes # (Manual) APTT POC ABG pH ABG pH POC ABG pCO2 POC ABG pO2 ABG pO2 ABG HCO3 ABG Base Excess ABG Hemoglobin VBG pH Oxyhemoglobin Sodium Potassium Chloride 95.5 L Carbon Dioxide BUN 52 H Creatinine Glucose 277 H POC Glucose 236 H 151 H Lactic Acid Calcium AST ALT Alkaline Phosphatase CK-MB (CK-2) CK-MB (CK-2) Rel Index Total Protein Albumin TSH Urine WBC (Auto) Salicylates 02/10/17 02/10/17 02/10/17 00:01 05:44 11:21 WBC RBC Hgb Hct MCV MCH RDW Plt Count Lymph % (Auto) [place] % (Auto) Eos % (Auto) [place] # Seg Neutrophils % Seg Neuts % (Manual) Lymphocytes % (Manual) Seg Neutrophils # Seg Neutrophils # Man Lymphocytes # (Manual) APTT POC ABG pH ABG pH POC ABG pCO2 POC ABG pO2 ABG pO2 ABG HCO3 ABG Base Excess ABG Hemoglobin VBG pH Oxyhemoglobin Sodium Potassium Chloride Carbon Dioxide BUN Creatinine Glucose POC Glucose 210 H 201 H 233 H Lactic Acid Calcium AST ALT Alkaline Phosphatase CK-MB (CK-2) CK-MB (CK-2) Rel Index Total Protein Albumin TSH Urine WBC (Auto) Salicylates 02/10/17 02/10/17 02/11/17 17:29 23:56 05:24 WBC RBC Hgb Hct MCV MCH RDW Plt Count Lymph % (Auto) [place] % (Auto) Eos % (Auto) [place] # Seg Neutrophils % Seg Neuts % (Manual) Lymphocytes % (Manual) Seg Neutrophils # Seg Neutrophils # Man Lymphocytes # (Manual) APTT POC ABG pH ABG pH POC ABG pCO2 POC ABG pO2 ABG pO2 ABG HCO3 ABG Base Excess ABG Hemoglobin VBG pH Oxyhemoglobin Sodium Potassium Chloride Carbon Dioxide BUN Creatinine Glucose POC Glucose 167 H 191 H 135 H Lactic Acid Calcium AST ALT Alkaline Phosphatase CK-MB (CK-2) CK-MB (CK-2) Rel Index Total Protein Albumin TSH Urine WBC (Auto) Salicylates 02/11/17 02/11/17 02/11/17 12:25 17:03 23:59 WBC RBC Hgb Hct MCV MCH RDW Plt Count Lymph % (Auto) [place] % (Auto) Eos % (Auto) [place] # Seg Neutrophils % Seg Neuts % (Manual) Lymphocytes % (Manual) Seg Neutrophils # Seg Neutrophils # Man Lymphocytes # (Manual) APTT POC ABG pH ABG pH POC ABG pCO2 POC ABG pO2 ABG pO2 ABG HCO3 ABG Base Excess ABG Hemoglobin VBG pH Oxyhemoglobin Sodium Potassium Chloride Carbon Dioxide BUN Creatinine Glucose POC Glucose 275 H 172 H 215 H Lactic Acid Calcium AST ALT Alkaline Phosphatase CK-MB (CK-2) CK-MB (CK-2) Rel Index Total Protein Albumin TSH Urine WBC (Auto) Salicylates 02/12/17 02/12/17 02/12/17 05:39 11:33 17:55 WBC RBC Hgb Hct MCV MCH RDW Plt Count Lymph % (Auto) [place] % (Auto) Eos % (Auto) [place] # Seg Neutrophils % Seg Neuts % (Manual) Lymphocytes % (Manual) Seg Neutrophils # Seg Neutrophils # Man Lymphocytes # (Manual) APTT POC ABG pH ABG pH POC ABG pCO2 POC ABG pO2 ABG pO2 ABG HCO3 ABG Base Excess ABG Hemoglobin VBG pH Oxyhemoglobin Sodium Potassium Chloride Carbon Dioxide BUN Creatinine Glucose POC Glucose 261 H 217 H 172 H Lactic Acid Calcium AST ALT Alkaline Phosphatase CK-MB (CK-2) CK-MB (CK-2) Rel Index Total Protein Albumin TSH Urine WBC (Auto) Salicylates 02/13/17 02/13/17 02/13/17 00:25 06:46 11:26 WBC RBC Hgb Hct MCV MCH RDW Plt Count Lymph % (Auto) [place] % (Auto) Eos % (Auto) [place] # Seg Neutrophils % Seg Neuts % (Manual) Lymphocytes % (Manual) Seg Neutrophils # Seg Neutrophils # Man Lymphocytes # (Manual) APTT POC ABG pH ABG pH POC ABG pCO2 POC ABG pO2 ABG pO2 ABG HCO3 ABG Base Excess ABG Hemoglobin VBG pH Oxyhemoglobin Sodium Potassium Chloride Carbon Dioxide BUN Creatinine Glucose POC Glucose 207 H 219 H 231 H Lactic Acid Calcium AST ALT Alkaline Phosphatase CK-MB (CK-2) CK-MB (CK-2) Rel Index Total Protein Albumin TSH Urine WBC (Auto) Salicylates 02/13/17 02/13/17 02/14/17 17:12 23:44 05:44 WBC RBC Hgb Hct MCV MCH RDW Plt Count Lymph % (Auto) [place] % (Auto) Eos % (Auto) [place] # Seg Neutrophils % Seg Neuts % (Manual) Lymphocytes % (Manual) Seg Neutrophils # Seg Neutrophils # Man Lymphocytes # (Manual) APTT POC ABG pH ABG pH POC ABG pCO2 POC ABG pO2 ABG pO2 ABG HCO3 ABG Base Excess ABG Hemoglobin VBG pH Oxyhemoglobin Sodium Potassium Chloride Carbon Dioxide BUN Creatinine Glucose POC Glucose 190 H 256 H 184 H Lactic Acid Calcium AST ALT Alkaline Phosphatase CK-MB (CK-2) CK-MB (CK-2) Rel Index Total Protein Albumin TSH Urine WBC (Auto) Salicylates 02/14/17 02/14/17 02/14/17 12:21 17:57 23:18 WBC RBC Hgb Hct MCV MCH RDW Plt Count Lymph % (Auto) [place] % (Auto) Eos % (Auto) [place] # Seg Neutrophils % Seg Neuts % (Manual) Lymphocytes % (Manual) Seg Neutrophils # Seg Neutrophils # Man Lymphocytes # (Manual) APTT POC ABG pH ABG pH POC ABG pCO2 POC ABG pO2 ABG pO2 ABG HCO3 ABG Base Excess ABG Hemoglobin VBG pH Oxyhemoglobin Sodium Potassium Chloride Carbon Dioxide BUN Creatinine Glucose POC Glucose 233 H 155 H 165 H Lactic Acid Calcium AST ALT Alkaline Phosphatase CK-MB (CK-2) CK-MB (CK-2) Rel Index Total Protein Albumin TSH Urine WBC (Auto) Salicylates 02/15/17 02/15/17 02/15/17 05:33 11:45 17:20 WBC RBC Hgb Hct MCV MCH RDW Plt Count Lymph % (Auto) [place] % (Auto) Eos % (Auto) [place] # Seg Neutrophils % Seg Neuts % (Manual) Lymphocytes % (Manual) Seg Neutrophils # Seg Neutrophils # Man Lymphocytes # (Manual) APTT POC ABG pH ABG pH POC ABG pCO2 POC ABG pO2 ABG pO2 ABG HCO3 ABG Base Excess ABG Hemoglobin VBG pH Oxyhemoglobin Sodium Potassium Chloride Carbon Dioxide BUN Creatinine Glucose POC Glucose 239 H 130 H 189 H Lactic Acid Calcium AST ALT Alkaline Phosphatase CK-MB (CK-2) CK-MB (CK-2) Rel Index Total Protein Albumin TSH Urine WBC (Auto) Salicylates 02/16/17 02/16/17 02/16/17 00:14 05:09 12:31 WBC RBC Hgb Hct MCV MCH RDW Plt Count Lymph % (Auto) [place] % (Auto) Eos % (Auto) [place] # Seg Neutrophils % Seg Neuts % (Manual) Lymphocytes % (Manual) Seg Neutrophils # Seg Neutrophils # Man Lymphocytes # (Manual) APTT POC ABG pH ABG pH POC ABG pCO2 POC ABG pO2 ABG pO2 ABG HCO3 ABG Base Excess ABG Hemoglobin VBG pH Oxyhemoglobin Sodium Potassium Chloride Carbon Dioxide BUN Creatinine Glucose POC Glucose 197 H 226 H 178 H Lactic Acid Calcium AST ALT Alkaline Phosphatase CK-MB (CK-2) CK-MB (CK-2) Rel Index Total Protein Albumin TSH Urine WBC (Auto) Salicylates 02/16/17 02/16/17 02/17/17 16:35 23:49 05:37 WBC RBC Hgb Hct MCV MCH RDW Plt Count Lymph % (Auto) [place] % (Auto) Eos % (Auto) [place] # Seg Neutrophils % Seg Neuts % (Manual) Lymphocytes % (Manual) Seg Neutrophils # Seg Neutrophils # Man Lymphocytes # (Manual) APTT POC ABG pH ABG pH POC ABG pCO2 POC ABG pO2 ABG pO2 ABG HCO3 ABG Base Excess ABG Hemoglobin VBG pH Oxyhemoglobin Sodium Potassium Chloride Carbon Dioxide BUN Creatinine Glucose POC Glucose 174 H 62 L 153 H Lactic Acid Calcium AST ALT Alkaline Phosphatase CK-MB (CK-2) CK-MB (CK-2) Rel Index Total Protein Albumin TSH Urine WBC (Auto) Salicylates 02/17/17 02/17/17 02/17/17 11:39 17:02 22:24 WBC RBC Hgb Hct MCV MCH RDW Plt Count Lymph % (Auto) [place] % (Auto) Eos % (Auto) [place] # Seg Neutrophils % Seg Neuts % (Manual) Lymphocytes % (Manual) Seg Neutrophils # Seg Neutrophils # Man Lymphocytes # (Manual) APTT POC ABG pH ABG pH POC ABG pCO2 POC ABG pO2 ABG pO2 ABG HCO3 ABG Base Excess ABG Hemoglobin VBG pH Oxyhemoglobin Sodium Potassium Chloride Carbon Dioxide BUN Creatinine Glucose POC Glucose 231 H 112 H 116 H Lactic Acid Calcium AST ALT Alkaline Phosphatase CK-MB (CK-2) CK-MB (CK-2) Rel Index Total Protein Albumin TSH Urine WBC (Auto) Salicylates 02/18/17 02/19/17 02/19/17 15:34 05:09 07:57 WBC RBC Hgb Hct MCV MCH RDW Plt Count Lymph % (Auto) [place] % (Auto) Eos % (Auto) [place] # Seg Neutrophils % Seg Neuts % (Manual) Lymphocytes % (Manual) Seg Neutrophils # Seg Neutrophils # Man Lymphocytes # (Manual) APTT POC ABG pH ABG pH POC ABG pCO2 POC ABG pO2 ABG pO2 ABG HCO3 ABG Base Excess ABG Hemoglobin VBG pH Oxyhemoglobin Sodium Potassium Chloride Carbon Dioxide BUN Creatinine Glucose POC Glucose 215 H 218 H 283 H Lactic Acid Calcium AST ALT Alkaline Phosphatase CK-MB (CK-2) CK-MB (CK-2) Rel Index Total Protein Albumin TSH Urine WBC (Auto) Salicylates 02/19/17 02/19/17 02/20/17 14:49 22:10 05:10 WBC RBC Hgb Hct MCV MCH RDW Plt Count Lymph % (Auto) [place] % (Auto) Eos % (Auto) [place] # Seg Neutrophils % Seg Neuts % (Manual) Lymphocytes % (Manual) Seg Neutrophils # Seg Neutrophils # Man Lymphocytes # (Manual) APTT POC ABG pH ABG pH POC ABG pCO2 POC ABG pO2 ABG pO2 ABG HCO3 ABG Base Excess ABG Hemoglobin VBG pH Oxyhemoglobin Sodium Potassium Chloride Carbon Dioxide BUN Creatinine Glucose POC Glucose 290 H 169 H 209 H Lactic Acid Calcium AST ALT Alkaline Phosphatase CK-MB (CK-2) CK-MB (CK-2) Rel Index Total Protein Albumin TSH Urine WBC (Auto) Salicylates 02/20/17 02/20/17 02/21/17 15:05 21:52 02:00 WBC RBC Hgb Hct MCV MCH RDW Plt Count Lymph % (Auto) [place] % (Auto) Eos % (Auto) [place] # Seg Neutrophils % Seg Neuts % (Manual) Lymphocytes % (Manual) Seg Neutrophils # Seg Neutrophils # Man Lymphocytes # (Manual) APTT POC ABG pH ABG pH POC ABG pCO2 POC ABG pO2 ABG pO2 ABG HCO3 ABG Base Excess ABG Hemoglobin VBG pH Oxyhemoglobin Sodium Potassium Chloride Carbon Dioxide BUN Creatinine Glucose POC Glucose 172 H 209 H 216 H Lactic Acid Calcium AST ALT Alkaline Phosphatase CK-MB (CK-2) CK-MB (CK-2) Rel Index Total Protein Albumin TSH Urine WBC (Auto) Salicylates 02/21/17 02/21/17 02/21/17 04:54 14:43 17:47 WBC RBC Hgb Hct MCV MCH RDW Plt Count Lymph % (Auto) [place] % (Auto) Eos % (Auto) [place] # Seg Neutrophils % Seg Neuts % (Manual) Lymphocytes % (Manual) Seg Neutrophils # Seg Neutrophils # Man Lymphocytes # (Manual) APTT POC ABG pH ABG pH POC ABG pCO2 POC ABG pO2 ABG pO2 ABG HCO3 ABG Base Excess ABG Hemoglobin VBG pH Oxyhemoglobin Sodium Potassium Chloride Carbon Dioxide BUN Creatinine Glucose POC Glucose 227 H 290 H 220 H Lactic Acid Calcium AST ALT Alkaline Phosphatase CK-MB (CK-2) CK-MB (CK-2) Rel Index Total Protein Albumin TSH Urine WBC (Auto) Salicylates 02/21/17 02/22/17 02/22/17 22:02 04:52 15:25 WBC RBC Hgb Hct MCV MCH RDW Plt Count Lymph % (Auto) [place] % (Auto) Eos % (Auto) [place] # Seg Neutrophils % Seg Neuts % (Manual) Lymphocytes % (Manual) Seg Neutrophils # Seg Neutrophils # Man Lymphocytes # (Manual) APTT POC ABG pH ABG pH POC ABG pCO2 POC ABG pO2 ABG pO2 ABG HCO3 ABG Base Excess ABG Hemoglobin VBG pH Oxyhemoglobin Sodium Potassium Chloride Carbon Dioxide BUN Creatinine Glucose POC Glucose 246 H 212 H 236 H Lactic Acid Calcium AST ALT Alkaline Phosphatase CK-MB (CK-2) CK-MB (CK-2) Rel Index Total Protein Albumin TSH Urine WBC (Auto) Salicylates 02/22/17 02/23/17 02/23/17 21:33 06:04 10:00 WBC RBC Hgb Hct MCV MCH RDW Plt Count Lymph % (Auto) [place] % (Auto) Eos % (Auto) [place] # Seg Neutrophils % Seg Neuts % (Manual) Lymphocytes % (Manual) Seg Neutrophils # Seg Neutrophils # Man Lymphocytes # (Manual) APTT POC ABG pH ABG pH POC ABG pCO2 POC ABG pO2 ABG pO2 ABG HCO3 ABG Base Excess ABG Hemoglobin VBG pH Oxyhemoglobin Sodium Potassium Chloride Carbon Dioxide BUN Creatinine Glucose POC Glucose 255 H 208 H 174 H Lactic Acid Calcium AST ALT Alkaline Phosphatase CK-MB (CK-2) CK-MB (CK-2) Rel Index Total Protein Albumin TSH Urine WBC (Auto) Salicylates 02/23/17 02/23/17 02/23/17 12:52 17:15 21:51 WBC RBC Hgb Hct MCV MCH RDW Plt Count Lymph % (Auto) [place] % (Auto) Eos % (Auto) [place] # Seg Neutrophils % Seg Neuts % (Manual) Lymphocytes % (Manual) Seg Neutrophils # Seg Neutrophils # Man Lymphocytes # (Manual) APTT POC ABG pH ABG pH POC ABG pCO2 POC ABG pO2 ABG pO2 ABG HCO3 ABG Base Excess ABG Hemoglobin VBG pH Oxyhemoglobin Sodium Potassium Chloride Carbon Dioxide BUN Creatinine Glucose POC Glucose 203 H 269 H 205 H Lactic Acid Calcium AST ALT Alkaline Phosphatase CK-MB (CK-2) CK-MB (CK-2) Rel Index Total Protein Albumin TSH Urine WBC (Auto) Salicylates 02/24/17 02/24/17 02/24/17 10:23 17:45 21:24 WBC RBC Hgb Hct MCV MCH RDW Plt Count Lymph % (Auto) [place] % (Auto) Eos % (Auto) [place] # Seg Neutrophils % Seg Neuts % (Manual) Lymphocytes % (Manual) Seg Neutrophils # Seg Neutrophils # Man Lymphocytes # (Manual) APTT POC ABG pH ABG pH POC ABG pCO2 POC ABG pO2 ABG pO2 ABG HCO3 ABG Base Excess ABG Hemoglobin VBG pH Oxyhemoglobin Sodium Potassium Chloride Carbon Dioxide BUN Creatinine Glucose POC Glucose 280 H 239 H 254 H Lactic Acid Calcium AST ALT Alkaline Phosphatase CK-MB (CK-2) CK-MB (CK-2) Rel Index Total Protein Albumin TSH Urine WBC (Auto) Salicylates 02/25/17 02/25/17 02/25/17 02:12 05:17 14:32 WBC RBC Hgb Hct MCV MCH RDW Plt Count Lymph % (Auto) [place] % (Auto) Eos % (Auto) [place] # Seg Neutrophils % Seg Neuts % (Manual) Lymphocytes % (Manual) Seg Neutrophils # Seg Neutrophils # Man Lymphocytes # (Manual) APTT POC ABG pH ABG pH POC ABG pCO2 POC ABG pO2 ABG pO2 ABG HCO3 ABG Base Excess ABG Hemoglobin VBG pH Oxyhemoglobin Sodium Potassium Chloride Carbon Dioxide BUN Creatinine Glucose POC Glucose 296 H 332 H 353 H Lactic Acid Calcium AST ALT Alkaline Phosphatase CK-MB (CK-2) CK-MB (CK-2) Rel Index Total Protein Albumin TSH Urine WBC (Auto) Salicylates 02/25/17 02/26/17 02/26/17 22:14 00:37 05:52 WBC RBC Hgb Hct MCV MCH RDW Plt Count Lymph % (Auto) [place] % (Auto) Eos % (Auto) [place] # Seg Neutrophils % Seg Neuts % (Manual) Lymphocytes % (Manual) Seg Neutrophils # Seg Neutrophils # Man Lymphocytes # (Manual) APTT POC ABG pH ABG pH POC ABG pCO2 POC ABG pO2 ABG pO2 ABG HCO3 ABG Base Excess ABG Hemoglobin VBG pH Oxyhemoglobin Sodium Potassium Chloride Carbon Dioxide BUN Creatinine Glucose POC Glucose 201 H 233 H 269 H Lactic Acid Calcium AST ALT Alkaline Phosphatase CK-MB (CK-2) CK-MB (CK-2) Rel Index Total Protein Albumin TSH Urine WBC (Auto) Salicylates 02/26/17 02/26/17 02/26/17 11:48 13:49 21:26 WBC RBC Hgb Hct MCV MCH RDW Plt Count Lymph % (Auto) [place] % (Auto) Eos % (Auto) [place] # Seg Neutrophils % Seg Neuts % (Manual) Lymphocytes % (Manual) Seg Neutrophils # Seg Neutrophils # Man Lymphocytes # (Manual) APTT POC ABG pH ABG pH POC ABG pCO2 POC ABG pO2 ABG pO2 ABG HCO3 ABG Base Excess ABG Hemoglobin VBG pH Oxyhemoglobin Sodium Potassium Chloride Carbon Dioxide BUN Creatinine Glucose POC Glucose 333 H 322 H 244 H Lactic Acid Calcium AST ALT Alkaline Phosphatase CK-MB (CK-2) CK-MB (CK-2) Rel Index Total Protein Albumin TSH Urine WBC (Auto) Salicylates 02/27/17 02/27/17 02/27/17 05:27 13:51 21:48 WBC RBC Hgb Hct MCV MCH RDW Plt Count Lymph % (Auto) [place] % (Auto) Eos % (Auto) [place] # Seg Neutrophils % Seg Neuts % (Manual) Lymphocytes % (Manual) Seg Neutrophils # Seg Neutrophils # Man Lymphocytes # (Manual) APTT POC ABG pH ABG pH POC ABG pCO2 POC ABG pO2 ABG pO2 ABG HCO3 ABG Base Excess ABG Hemoglobin VBG pH Oxyhemoglobin Sodium Potassium Chloride Carbon Dioxide BUN Creatinine Glucose POC Glucose 217 H 239 H 254 H Lactic Acid Calcium AST ALT Alkaline Phosphatase CK-MB (CK-2) CK-MB (CK-2) Rel Index Total Protein Albumin TSH Urine WBC (Auto) Salicylates 02/28/17 02/28/17 02/28/17 05:38 11:00 19:44 WBC RBC Hgb Hct MCV MCH RDW Plt Count Lymph % (Auto) [place] % (Auto) Eos % (Auto) [place] # Seg Neutrophils % Seg Neuts % (Manual) Lymphocytes % (Manual) Seg Neutrophils # Seg Neutrophils # Man Lymphocytes # (Manual) APTT POC ABG pH ABG pH POC ABG pCO2 POC ABG pO2 ABG pO2 ABG HCO3 ABG Base Excess ABG Hemoglobin VBG pH Oxyhemoglobin Sodium Potassium Chloride Carbon Dioxide BUN Creatinine Glucose POC Glucose 325 H 203 H 116 H Lactic Acid Calcium AST ALT Alkaline Phosphatase CK-MB (CK-2) CK-MB (CK-2) Rel Index Total Protein Albumin TSH Urine WBC (Auto) Salicylates 03/01/17 03/01/17 03/01/17 00:08 05:31 12:17 WBC RBC Hgb Hct MCV MCH RDW Plt Count Lymph % (Auto) [place] % (Auto) Eos % (Auto) [place] # Seg Neutrophils % Seg Neuts % (Manual) Lymphocytes % (Manual) Seg Neutrophils # Seg Neutrophils # Man Lymphocytes # (Manual) APTT POC ABG pH ABG pH POC ABG pCO2 POC ABG pO2 ABG pO2 ABG HCO3 ABG Base Excess ABG Hemoglobin VBG pH Oxyhemoglobin Sodium Potassium Chloride Carbon Dioxide BUN Creatinine Glucose POC Glucose 202 H 183 H 184 H Lactic Acid Calcium AST ALT Alkaline Phosphatase CK-MB (CK-2) CK-MB (CK-2) Rel Index Total Protein Albumin TSH Urine WBC (Auto) Salicylates 03/02/17 03/02/17 03/02/17 00:12 05:58 18:22 WBC RBC Hgb Hct MCV MCH RDW Plt Count Lymph % (Auto) [place] % (Auto) Eos % (Auto) [place] # Seg Neutrophils % Seg Neuts % (Manual) Lymphocytes % (Manual) Seg Neutrophils # Seg Neutrophils # Man Lymphocytes # (Manual) APTT POC ABG pH ABG pH POC ABG pCO2 POC ABG pO2 ABG pO2 ABG HCO3 ABG Base Excess ABG Hemoglobin VBG pH Oxyhemoglobin Sodium Potassium Chloride Carbon Dioxide BUN Creatinine Glucose POC Glucose 117 H 176 H 156 H Lactic Acid Calcium AST ALT Alkaline Phosphatase CK-MB (CK-2) CK-MB (CK-2) Rel Index Total Protein Albumin TSH Urine WBC (Auto) Salicylates 03/02/17 03/03/17 03/03/17 23:51 05:44 11:32 WBC RBC Hgb Hct MCV MCH RDW Plt Count Lymph % (Auto) [place] % (Auto) Eos % (Auto) [place] # Seg Neutrophils % Seg Neuts % (Manual) Lymphocytes % (Manual) Seg Neutrophils # Seg Neutrophils # Man Lymphocytes # (Manual) APTT POC ABG pH ABG pH POC ABG pCO2 POC ABG pO2 ABG pO2 ABG HCO3 ABG Base Excess ABG Hemoglobin VBG pH Oxyhemoglobin Sodium Potassium Chloride Carbon Dioxide BUN Creatinine Glucose POC Glucose 211 H 117 H 133 H Lactic Acid Calcium AST ALT Alkaline Phosphatase CK-MB (CK-2) CK-MB (CK-2) Rel Index Total Protein Albumin TSH Urine WBC (Auto) Salicylates 03/03/17 03/03/17 03/04/17 17:43 23:17 05:30 WBC RBC Hgb Hct MCV MCH RDW Plt Count Lymph % (Auto) [place] % (Auto) Eos % (Auto) [place] # Seg Neutrophils % Seg Neuts % (Manual) Lymphocytes % (Manual) Seg Neutrophils # Seg Neutrophils # Man Lymphocytes # (Manual) APTT POC ABG pH ABG pH POC ABG pCO2 POC ABG pO2 ABG pO2 ABG HCO3 ABG Base Excess ABG Hemoglobin VBG pH Oxyhemoglobin Sodium Potassium Chloride Carbon Dioxide BUN Creatinine Glucose POC Glucose 206 H 170 H 126 H Lactic Acid Calcium AST ALT Alkaline Phosphatase CK-MB (CK-2) CK-MB (CK-2) Rel Index Total Protein Albumin TSH Urine WBC (Auto) Salicylates 03/04/17 03/04/17 03/05/17 12:17 17:27 05:20 WBC RBC Hgb Hct MCV MCH RDW Plt Count Lymph % (Auto) [place] % (Auto) Eos % (Auto) [place] # Seg Neutrophils % Seg Neuts % (Manual) Lymphocytes % (Manual) Seg Neutrophils # Seg Neutrophils # Man Lymphocytes # (Manual) APTT POC ABG pH ABG pH POC ABG pCO2 POC ABG pO2 ABG pO2 ABG HCO3 ABG Base Excess ABG Hemoglobin VBG pH Oxyhemoglobin Sodium Potassium Chloride Carbon Dioxide BUN Creatinine Glucose POC Glucose 135 H 121 H 185 H Lactic Acid Calcium AST ALT Alkaline Phosphatase CK-MB (CK-2) CK-MB (CK-2) Rel Index Total Protein Albumin TSH Urine WBC (Auto) Salicylates 03/05/17 03/06/17 03/06/17 11:50 11:52 17:34 WBC RBC Hgb Hct MCV MCH RDW Plt Count Lymph % (Auto) [place] % (Auto) Eos % (Auto) [place] # Seg Neutrophils % Seg Neuts % (Manual) Lymphocytes % (Manual) Seg Neutrophils # Seg Neutrophils # Man Lymphocytes # (Manual) APTT POC ABG pH ABG pH POC ABG pCO2 POC ABG pO2 ABG pO2 ABG HCO3 ABG Base Excess ABG Hemoglobin VBG pH Oxyhemoglobin Sodium Potassium Chloride Carbon Dioxide BUN Creatinine Glucose POC Glucose 116 H 133 H 181 H Lactic Acid Calcium AST ALT Alkaline Phosphatase CK-MB (CK-2) CK-MB (CK-2) Rel Index Total Protein Albumin TSH Urine WBC (Auto) Salicylates 03/07/17 03/07/17 03/07/17 05:21 11:36 17:49 WBC RBC Hgb Hct MCV MCH RDW Plt Count Lymph % (Auto) [place] % (Auto) Eos % (Auto) [place] # Seg Neutrophils % Seg Neuts % (Manual) Lymphocytes % (Manual) Seg Neutrophils # Seg Neutrophils # Man Lymphocytes # (Manual) APTT POC ABG pH ABG pH POC ABG pCO2 POC ABG pO2 ABG pO2 ABG HCO3 ABG Base Excess ABG Hemoglobin VBG pH Oxyhemoglobin Sodium Potassium Chloride Carbon Dioxide BUN Creatinine Glucose POC Glucose 159 H 137 H 158 H Lactic Acid Calcium AST ALT Alkaline Phosphatase CK-MB (CK-2) CK-MB (CK-2) Rel Index Total Protein Albumin TSH Urine WBC (Auto) Salicylates 03/08/17 03/08/17 03/08/17 05:51 13:58 23:50 WBC RBC Hgb Hct MCV MCH RDW Plt Count Lymph % (Auto) [place] % (Auto) Eos % (Auto) [place] # Seg Neutrophils % Seg Neuts % (Manual) Lymphocytes % (Manual) Seg Neutrophils # Seg Neutrophils # Man Lymphocytes # (Manual) APTT POC ABG pH ABG pH POC ABG pCO2 POC ABG pO2 ABG pO2 ABG HCO3 ABG Base Excess ABG Hemoglobin VBG pH Oxyhemoglobin Sodium Potassium Chloride Carbon Dioxide BUN Creatinine Glucose POC Glucose 122 H 182 H 114 H Lactic Acid Calcium AST ALT Alkaline Phosphatase CK-MB (CK-2) CK-MB (CK-2) Rel Index Total Protein Albumin TSH Urine WBC (Auto) Salicylates 03/09/17 03/09/17 03/09/17 05:21 05:51 05:51 WBC RBC 3.61 L Hgb 9.5 L Hct 28.3 L MCV 79 L MCH 26 L RDW 17.8 H Plt Count Lymph % (Auto) [place] % (Auto) Eos % (Auto) [place] # Seg Neutrophils % Seg Neuts % (Manual) Lymphocytes % (Manual) Seg Neutrophils # Seg Neutrophils # Man Lymphocytes # (Manual) APTT POC ABG pH ABG pH POC ABG pCO2 POC ABG pO2 ABG pO2 ABG HCO3 ABG Base Excess ABG Hemoglobin VBG pH Oxyhemoglobin Sodium 134 L Potassium Chloride 95.5 L Carbon Dioxide BUN 33 H Creatinine 0.5 L Glucose 143 H POC Glucose 153 H Lactic Acid Calcium AST ALT Alkaline Phosphatase CK-MB (CK-2) CK-MB (CK-2) Rel Index Total Protein Albumin TSH Urine WBC (Auto) Salicylates 03/09/17 03/09/17 03/09/17 12:10 18:13 21:00 WBC RBC Hgb Hct MCV MCH RDW Plt Count Lymph % (Auto) [place] % (Auto) Eos % (Auto) [place] # Seg Neutrophils % Seg Neuts % (Manual) Lymphocytes % (Manual) Seg Neutrophils # Seg Neutrophils # Man Lymphocytes # (Manual) APTT POC ABG pH ABG pH POC ABG pCO2 POC ABG pO2 ABG pO2 ABG HCO3 ABG Base Excess ABG Hemoglobin VBG pH Oxyhemoglobin Sodium Potassium Chloride Carbon Dioxide BUN Creatinine Glucose POC Glucose 203 H 221 H 198 H Lactic Acid Calcium AST ALT Alkaline Phosphatase CK-MB (CK-2) CK-MB (CK-2) Rel Index Total Protein Albumin TSH Urine WBC (Auto) Salicylates 03/09/17 03/10/17 03/10/17 23:58 05:09 05:09 WBC RBC Hgb 10.3 L Hct 30.5 L MCV 78 L MCH 26 L RDW 17.9 H Plt Count Lymph % (Auto) [place] % (Auto) 10.0 H Eos % (Auto) 6.0 H [place] # Seg Neutrophils % Seg Neuts % (Manual) Lymphocytes % (Manual) Seg Neutrophils # Seg Neutrophils # Man Lymphocytes # (Manual) APTT POC ABG pH ABG pH POC ABG pCO2 POC ABG pO2 ABG pO2 ABG HCO3 ABG Base Excess ABG Hemoglobin VBG pH Oxyhemoglobin Sodium 132 L Potassium Chloride 92.2 L Carbon Dioxide BUN 33 H Creatinine 0.5 L Glucose 50 L POC Glucose 167 H Lactic Acid Calcium AST ALT Alkaline Phosphatase CK-MB (CK-2) CK-MB (CK-2) Rel Index Total Protein Albumin TSH Urine WBC (Auto) Salicylates 03/10/17 03/10/17 03/10/17 05:33 05:34 11:48 WBC RBC Hgb Hct MCV MCH RDW Plt Count Lymph % (Auto) [place] % (Auto) Eos % (Auto) [place] # Seg Neutrophils % Seg Neuts % (Manual) Lymphocytes % (Manual) Seg Neutrophils # Seg Neutrophils # Man Lymphocytes # (Manual) APTT POC ABG pH ABG pH POC ABG pCO2 POC ABG pO2 ABG pO2 ABG HCO3 ABG Base Excess ABG Hemoglobin VBG pH Oxyhemoglobin Sodium Potassium Chloride Carbon Dioxide BUN Creatinine Glucose POC Glucose 52 L 53 L 148 H Lactic Acid Calcium AST ALT Alkaline Phosphatase CK-MB (CK-2) CK-MB (CK-2) Rel Index Total Protein Albumin TSH Urine WBC (Auto) Salicylates 03/10/17 03/10/17 03/11/17 17:53 23:47 05:18 WBC RBC Hgb Hct MCV MCH RDW Plt Count Lymph % (Auto) [place] % (Auto) Eos % (Auto) [place] # Seg Neutrophils % Seg Neuts % (Manual) Lymphocytes % (Manual) Seg Neutrophils # Seg Neutrophils # Man Lymphocytes # (Manual) APTT POC ABG pH ABG pH POC ABG pCO2 POC ABG pO2 ABG pO2 ABG HCO3 ABG Base Excess ABG Hemoglobin VBG pH Oxyhemoglobin Sodium Potassium Chloride Carbon Dioxide BUN Creatinine Glucose POC Glucose 189 H 398 H 126 H Lactic Acid Calcium AST ALT Alkaline Phosphatase CK-MB (CK-2) CK-MB (CK-2) Rel Index Total Protein Albumin TSH Urine WBC (Auto) Salicylates 03/11/17 03/11/17 03/11/17 11:53 17:30 23:10 WBC RBC Hgb Hct MCV MCH RDW Plt Count Lymph % (Auto) [place] % (Auto) Eos % (Auto) [place] # Seg Neutrophils % Seg Neuts % (Manual) Lymphocytes % (Manual) Seg Neutrophils # Seg Neutrophils # Man Lymphocytes # (Manual) APTT POC ABG pH ABG pH POC ABG pCO2 POC ABG pO2 ABG pO2 ABG HCO3 ABG Base Excess ABG Hemoglobin VBG pH Oxyhemoglobin Sodium Potassium Chloride Carbon Dioxide BUN Creatinine Glucose POC Glucose 198 H 142 H 244 H Lactic Acid Calcium AST ALT Alkaline Phosphatase CK-MB (CK-2) CK-MB (CK-2) Rel Index Total Protein Albumin TSH Urine WBC (Auto) Salicylates 03/12/17 03/12/17 03/12/17 04:36 11:49 17:23 WBC RBC Hgb Hct MCV MCH RDW Plt Count Lymph % (Auto) [place] % (Auto) Eos % (Auto) [place] # Seg Neutrophils % Seg Neuts % (Manual) Lymphocytes % (Manual) Seg Neutrophils # Seg Neutrophils # Man Lymphocytes # (Manual) APTT POC ABG pH ABG pH POC ABG pCO2 POC ABG pO2 ABG pO2 ABG HCO3 ABG Base Excess ABG Hemoglobin VBG pH Oxyhemoglobin Sodium Potassium Chloride Carbon Dioxide BUN Creatinine Glucose POC Glucose 205 H 197 H 209 H Lactic Acid Calcium AST ALT Alkaline Phosphatase CK-MB (CK-2) CK-MB (CK-2) Rel Index Total Protein Albumin TSH Urine WBC (Auto) Salicylates 03/12/17 03/13/17 03/13/17 23:51 05:32 11:43 WBC RBC Hgb Hct MCV MCH RDW Plt Count Lymph % (Auto) [place] % (Auto) Eos % (Auto) [place] # Seg Neutrophils % Seg Neuts % (Manual) Lymphocytes % (Manual) Seg Neutrophils # Seg Neutrophils # Man Lymphocytes # (Manual) APTT POC ABG pH ABG pH POC ABG pCO2 POC ABG pO2 ABG pO2 ABG HCO3 ABG Base Excess ABG Hemoglobin VBG pH Oxyhemoglobin Sodium Potassium Chloride Carbon Dioxide BUN Creatinine Glucose POC Glucose 210 H 154 H 164 H Lactic Acid Calcium AST ALT Alkaline Phosphatase CK-MB (CK-2) CK-MB (CK-2) Rel Index Total Protein Albumin TSH Urine WBC (Auto) Salicylates 03/13/17 03/13/17 03/14/17 17:11 23:26 05:42 WBC RBC Hgb Hct MCV MCH RDW Plt Count Lymph % (Auto) [place] % (Auto) Eos % (Auto) [place] # Seg Neutrophils % Seg Neuts % (Manual) Lymphocytes % (Manual) Seg Neutrophils # Seg Neutrophils # Man Lymphocytes # (Manual) APTT POC ABG pH ABG pH POC ABG pCO2 POC ABG pO2 ABG pO2 ABG HCO3 ABG Base Excess ABG Hemoglobin VBG pH Oxyhemoglobin Sodium Potassium Chloride Carbon Dioxide BUN Creatinine Glucose POC Glucose 195 H 240 H 230 H Lactic Acid Calcium AST ALT Alkaline Phosphatase CK-MB (CK-2) CK-MB (CK-2) Rel Index Total Protein Albumin TSH Urine WBC (Auto) Salicylates 03/14/17 03/14/17 03/14/17 14:04 17:34 23:42 WBC RBC Hgb Hct MCV MCH RDW Plt Count Lymph % (Auto) [place] % (Auto) Eos % (Auto) [place] # Seg Neutrophils % Seg Neuts % (Manual) Lymphocytes % (Manual) Seg Neutrophils # Seg Neutrophils # Man Lymphocytes # (Manual) APTT POC ABG pH ABG pH POC ABG pCO2 POC ABG pO2 ABG pO2 ABG HCO3 ABG Base Excess ABG Hemoglobin VBG pH Oxyhemoglobin Sodium Potassium Chloride Carbon Dioxide BUN Creatinine Glucose POC Glucose 227 H 186 H 225 H Lactic Acid Calcium AST ALT Alkaline Phosphatase CK-MB (CK-2) CK-MB (CK-2) Rel Index Total Protein Albumin TSH Urine WBC (Auto) Salicylates 03/15/17 03/15/17 03/15/17 05:21 17:13 21:37 WBC RBC Hgb Hct MCV MCH RDW Plt Count Lymph % (Auto) [place] % (Auto) Eos % (Auto) [place] # Seg Neutrophils % Seg Neuts % (Manual) Lymphocytes % (Manual) Seg Neutrophils # Seg Neutrophils # Man Lymphocytes # (Manual) APTT POC ABG pH ABG pH POC ABG pCO2 POC ABG pO2 ABG pO2 ABG HCO3 ABG Base Excess ABG Hemoglobin VBG pH Oxyhemoglobin Sodium Potassium Chloride Carbon Dioxide BUN Creatinine Glucose POC Glucose 244 H 203 H 216 H Lactic Acid Calcium AST ALT Alkaline Phosphatase CK-MB (CK-2) CK-MB (CK-2) Rel Index Total Protein Albumin TSH Urine WBC (Auto) Salicylates 03/16/17 03/16/17 03/16/17 05:52 18:07 21:54 WBC RBC Hgb Hct MCV MCH RDW Plt Count Lymph % (Auto) [place] % (Auto) Eos % (Auto) [place] # Seg Neutrophils % Seg Neuts % (Manual) Lymphocytes % (Manual) Seg Neutrophils # Seg Neutrophils # Man Lymphocytes # (Manual) APTT POC ABG pH ABG pH POC ABG pCO2 POC ABG pO2 ABG pO2 ABG HCO3 ABG Base Excess ABG Hemoglobin VBG pH Oxyhemoglobin Sodium Potassium Chloride Carbon Dioxide BUN Creatinine Glucose POC Glucose 248 H 254 H 244 H Lactic Acid Calcium AST ALT Alkaline Phosphatase CK-MB (CK-2) CK-MB (CK-2) Rel Index Total Protein Albumin TSH Urine WBC (Auto) Salicylates 03/17/17 03/17/17 03/17/17 07:07 07:42 07:43 WBC RBC Hgb 9.7 L Hct 29.1 L MCV 78 L MCH 26 L RDW 17.4 H Plt Count Lymph % (Auto) [place] % (Auto) Eos % (Auto) [place] # Seg Neutrophils % Seg Neuts % (Manual) Lymphocytes % (Manual) Seg Neutrophils # Seg Neutrophils # Man Lymphocytes # (Manual) APTT POC ABG pH ABG pH POC ABG pCO2 POC ABG pO2 ABG pO2 ABG HCO3 ABG Base Excess ABG Hemoglobin VBG pH Oxyhemoglobin Sodium Potassium Chloride 96.6 L Carbon Dioxide BUN 30 H Creatinine 0.5 L Glucose 251 H POC Glucose 222 H Lactic Acid Calcium AST ALT Alkaline Phosphatase CK-MB (CK-2) CK-MB (CK-2) Rel Index Total Protein Albumin TSH Urine WBC (Auto) Salicylates 03/17/17 03/17/17 03/18/17 14:08 21:20 14:24 WBC RBC Hgb Hct MCV MCH RDW Plt Count Lymph % (Auto) [place] % (Auto) Eos % (Auto) [place] # Seg Neutrophils % Seg Neuts % (Manual) Lymphocytes % (Manual) Seg Neutrophils # Seg Neutrophils # Man Lymphocytes # (Manual) APTT POC ABG pH ABG pH POC ABG pCO2 POC ABG pO2 ABG pO2 ABG HCO3 ABG Base Excess ABG Hemoglobin VBG pH Oxyhemoglobin Sodium Potassium Chloride Carbon Dioxide BUN Creatinine Glucose POC Glucose 281 H 239 H 195 H Lactic Acid Calcium AST ALT Alkaline Phosphatase CK-MB (CK-2) CK-MB (CK-2) Rel Index Total Protein Albumin TSH Urine WBC (Auto) Salicylates 03/18/17 03/19/17 03/19/17 21:37 04:57 14:23 WBC RBC Hgb Hct MCV MCH RDW Plt Count Lymph % (Auto) [place] % (Auto) Eos % (Auto) [place] # Seg Neutrophils % Seg Neuts % (Manual) Lymphocytes % (Manual) Seg Neutrophils # Seg Neutrophils # Man Lymphocytes # (Manual) APTT POC ABG pH ABG pH POC ABG pCO2 POC ABG pO2 ABG pO2 ABG HCO3 ABG Base Excess ABG Hemoglobin VBG pH Oxyhemoglobin Sodium Potassium Chloride Carbon Dioxide BUN Creatinine Glucose POC Glucose 227 H 205 H 277 H Lactic Acid Calcium AST ALT Alkaline Phosphatase CK-MB (CK-2) CK-MB (CK-2) Rel Index Total Protein Albumin TSH Urine WBC (Auto) Salicylates 03/19/17 03/19/17 03/20/17 20:31 21:47 04:55 WBC RBC Hgb Hct MCV MCH RDW Plt Count Lymph % (Auto) [place] % (Auto) Eos % (Auto) [place] # Seg Neutrophils % Seg Neuts % (Manual) Lymphocytes % (Manual) Seg Neutrophils # Seg Neutrophils # Man Lymphocytes # (Manual) APTT POC ABG pH ABG pH POC ABG pCO2 POC ABG pO2 ABG pO2 ABG HCO3 ABG Base Excess ABG Hemoglobin VBG pH Oxyhemoglobin Sodium Potassium Chloride Carbon Dioxide BUN Creatinine Glucose POC Glucose 256 H 270 H 202 H Lactic Acid Calcium AST ALT Alkaline Phosphatase CK-MB (CK-2) CK-MB (CK-2) Rel Index Total Protein Albumin TSH Urine WBC (Auto) Salicylates 03/20/17 03/20/17 03/21/17 14:09 21:40 05:09 WBC RBC Hgb Hct MCV MCH RDW Plt Count Lymph % (Auto) [place] % (Auto) Eos % (Auto) [place] # Seg Neutrophils % Seg Neuts % (Manual) Lymphocytes % (Manual) Seg Neutrophils # Seg Neutrophils # Man Lymphocytes # (Manual) APTT POC ABG pH ABG pH POC ABG pCO2 POC ABG pO2 ABG pO2 ABG HCO3 ABG Base Excess ABG Hemoglobin VBG pH Oxyhemoglobin Sodium Potassium Chloride Carbon Dioxide BUN Creatinine Glucose POC Glucose 200 H 214 H 233 H Lactic Acid Calcium AST ALT Alkaline Phosphatase CK-MB (CK-2) CK-MB (CK-2) Rel Index Total Protein Albumin TSH Urine WBC (Auto) Salicylates 03/21/17 03/21/17 03/22/17 14:06 21:26 05:43 WBC RBC Hgb Hct MCV MCH RDW Plt Count Lymph % (Auto) [place] % (Auto) Eos % (Auto) [place] # Seg Neutrophils % Seg Neuts % (Manual) Lymphocytes % (Manual) Seg Neutrophils # Seg Neutrophils # Man Lymphocytes # (Manual) APTT POC ABG pH ABG pH POC ABG pCO2 POC ABG pO2 ABG pO2 ABG HCO3 ABG Base Excess ABG Hemoglobin VBG pH Oxyhemoglobin Sodium Potassium Chloride Carbon Dioxide BUN Creatinine Glucose POC Glucose 250 H 155 H 251 H Lactic Acid Calcium AST ALT Alkaline Phosphatase CK-MB (CK-2) CK-MB (CK-2) Rel Index Total Protein Albumin TSH Urine WBC (Auto) Salicylates 03/22/17 03/22/17 03/23/17 13:46 21:16 00:23 WBC RBC Hgb Hct MCV MCH RDW Plt Count Lymph % (Auto) [place] % (Auto) Eos % (Auto) [place] # Seg Neutrophils % Seg Neuts % (Manual) Lymphocytes % (Manual) Seg Neutrophils # Seg Neutrophils # Man Lymphocytes # (Manual) APTT POC ABG pH ABG pH POC ABG pCO2 POC ABG pO2 ABG pO2 ABG HCO3 ABG Base Excess ABG Hemoglobin VBG pH Oxyhemoglobin Sodium Potassium Chloride Carbon Dioxide BUN Creatinine Glucose POC Glucose 269 H 197 H 126 H Lactic Acid Calcium AST ALT Alkaline Phosphatase CK-MB (CK-2) CK-MB (CK-2) Rel Index Total Protein Albumin TSH Urine WBC (Auto) Salicylates 03/23/17 03/23/17 03/23/17 05:39 14:06 21:39 WBC RBC Hgb Hct MCV MCH RDW Plt Count Lymph % (Auto) [place] % (Auto) Eos % (Auto) [place] # Seg Neutrophils % Seg Neuts % (Manual) Lymphocytes % (Manual) Seg Neutrophils # Seg Neutrophils # Man Lymphocytes # (Manual) APTT POC ABG pH ABG pH POC ABG pCO2 POC ABG pO2 ABG pO2 ABG HCO3 ABG Base Excess ABG Hemoglobin VBG pH Oxyhemoglobin Sodium Potassium Chloride Carbon Dioxide BUN Creatinine Glucose POC Glucose 234 H 241 H 248 H Lactic Acid Calcium AST ALT Alkaline Phosphatase CK-MB (CK-2) CK-MB (CK-2) Rel Index Total Protein Albumin TSH Urine WBC (Auto) Salicylates 03/24/17 03/24/17 03/25/17 05:06 21:46 05:38 WBC RBC Hgb Hct MCV MCH RDW Plt Count Lymph % (Auto) [place] % (Auto) Eos % (Auto) [place] # Seg Neutrophils % Seg Neuts % (Manual) Lymphocytes % (Manual) Seg Neutrophils # Seg Neutrophils # Man Lymphocytes # (Manual) APTT POC ABG pH ABG pH POC ABG pCO2 POC ABG pO2 ABG pO2 ABG HCO3 ABG Base Excess ABG Hemoglobin VBG pH Oxyhemoglobin Sodium Potassium Chloride Carbon Dioxide BUN Creatinine Glucose POC Glucose 232 H 276 H 242 H Lactic Acid Calcium AST ALT Alkaline Phosphatase CK-MB (CK-2) CK-MB (CK-2) Rel Index Total Protein Albumin TSH Urine WBC (Auto) Salicylates 03/25/17 03/25/17 03/26/17 14:30 23:14 13:53 WBC RBC Hgb Hct MCV MCH RDW Plt Count Lymph % (Auto) [place] % (Auto) Eos % (Auto) [place] # Seg Neutrophils % Seg Neuts % (Manual) Lymphocytes % (Manual) Seg Neutrophils # Seg Neutrophils # Man Lymphocytes # (Manual) APTT POC ABG pH ABG pH POC ABG pCO2 POC ABG pO2 ABG pO2 ABG HCO3 ABG Base Excess ABG Hemoglobin VBG pH Oxyhemoglobin Sodium Potassium Chloride Carbon Dioxide BUN Creatinine Glucose POC Glucose 246 H 208 H 195 H Lactic Acid Calcium AST ALT Alkaline Phosphatase CK-MB (CK-2) CK-MB (CK-2) Rel Index Total Protein Albumin TSH Urine WBC (Auto) Salicylates 03/26/17 03/27/17 03/27/17 21:58 05:18 14:57 WBC RBC Hgb Hct MCV MCH RDW Plt Count Lymph % (Auto) [place] % (Auto) Eos % (Auto) [place] # Seg Neutrophils % Seg Neuts % (Manual) Lymphocytes % (Manual) Seg Neutrophils # Seg Neutrophils # Man Lymphocytes # (Manual) APTT POC ABG pH ABG pH POC ABG pCO2 POC ABG pO2 ABG pO2 ABG HCO3 ABG Base Excess ABG Hemoglobin VBG pH Oxyhemoglobin Sodium Potassium Chloride Carbon Dioxide BUN Creatinine Glucose POC Glucose 241 H 199 H 269 H Lactic Acid Calcium AST ALT Alkaline Phosphatase CK-MB (CK-2) CK-MB (CK-2) Rel Index Total Protein Albumin TSH Urine WBC (Auto) Salicylates 03/27/17 03/28/17 03/28/17 21:33 13:52 21:29 WBC RBC Hgb Hct MCV MCH RDW Plt Count Lymph % (Auto) [place] % (Auto) Eos % (Auto) [place] # Seg Neutrophils % Seg Neuts % (Manual) Lymphocytes % (Manual) Seg Neutrophils # Seg Neutrophils # Man Lymphocytes # (Manual) APTT POC ABG pH ABG pH POC ABG pCO2 POC ABG pO2 ABG pO2 ABG HCO3 ABG Base Excess ABG Hemoglobin VBG pH Oxyhemoglobin Sodium Potassium Chloride Carbon Dioxide BUN Creatinine Glucose POC Glucose 214 H 243 H 286 H Lactic Acid Calcium AST ALT Alkaline Phosphatase CK-MB (CK-2) CK-MB (CK-2) Rel Index Total Protein Albumin TSH Urine WBC (Auto) Salicylates 03/29/17 03/29/17 03/29/17 04:32 04:32 13:58 WBC RBC Hgb 10.6 L Hct 32.9 L MCV 78 L MCH 25 L RDW 17.6 H Plt Count Lymph % (Auto) 38.0 H [place] % (Auto) 9.7 H Eos % (Auto) [place] # Seg Neutrophils % Seg Neuts % (Manual) Lymphocytes % (Manual) Seg Neutrophils # Seg Neutrophils # Man Lymphocytes # (Manual) APTT POC ABG pH ABG pH POC ABG pCO2 POC ABG pO2 ABG pO2 ABG HCO3 ABG Base Excess ABG Hemoglobin VBG pH Oxyhemoglobin Sodium 132 L Potassium Chloride 94.0 L Carbon Dioxide BUN 28 H Creatinine 0.5 L Glucose 236 H POC Glucose 171 H Lactic Acid Calcium AST ALT 71 H Alkaline Phosphatase 391 H CK-MB (CK-2) CK-MB (CK-2) Rel Index Total Protein 8.3 H Albumin 2.9 L TSH Urine WBC (Auto) Salicylates 03/29/17 03/30/17 03/30/17 20:59 06:07 11:52 WBC RBC Hgb Hct MCV MCH RDW Plt Count Lymph % (Auto) [place] % (Auto) Eos % (Auto) [place] # Seg Neutrophils % Seg Neuts % (Manual) Lymphocytes % (Manual) Seg Neutrophils # Seg Neutrophils # Man Lymphocytes # (Manual) APTT POC ABG pH ABG pH POC ABG pCO2 POC ABG pO2 ABG pO2 ABG HCO3 ABG Base Excess ABG Hemoglobin VBG pH Oxyhemoglobin Sodium Potassium Chloride Carbon Dioxide BUN Creatinine Glucose POC Glucose 215 H 259 H 197 H Lactic Acid Calcium AST ALT Alkaline Phosphatase CK-MB (CK-2) CK-MB (CK-2) Rel Index Total Protein Albumin TSH Urine WBC (Auto) Salicylates 03/30/17 03/31/17 03/31/17 21:34 05:42 14:34 WBC RBC Hgb Hct MCV MCH RDW Plt Count Lymph % (Auto) [place] % (Auto) Eos % (Auto) [place] # Seg Neutrophils % Seg Neuts % (Manual) Lymphocytes % (Manual) Seg Neutrophils # Seg Neutrophils # Man Lymphocytes # (Manual) APTT POC ABG pH ABG pH POC ABG pCO2 POC ABG pO2 ABG pO2 ABG HCO3 ABG Base Excess ABG Hemoglobin VBG pH Oxyhemoglobin Sodium Potassium Chloride Carbon Dioxide BUN Creatinine Glucose POC Glucose 207 H 184 H 213 H Lactic Acid Calcium AST ALT Alkaline Phosphatase CK-MB (CK-2) CK-MB (CK-2) Rel Index Total Protein Albumin TSH Urine WBC (Auto) Salicylates 03/31/17 04/01/17 04/01/17 21:32 05:53 13:48 WBC RBC Hgb Hct MCV MCH RDW Plt Count Lymph % (Auto) [place] % (Auto) Eos % (Auto) [place] # Seg Neutrophils % Seg Neuts % (Manual) Lymphocytes % (Manual) Seg Neutrophils # Seg Neutrophils # Man Lymphocytes # (Manual) APTT POC ABG pH ABG pH POC ABG pCO2 POC ABG pO2 ABG pO2 ABG HCO3 ABG Base Excess ABG Hemoglobin VBG pH Oxyhemoglobin Sodium Potassium Chloride Carbon Dioxide BUN Creatinine Glucose POC Glucose 249 H 225 H 256 H Lactic Acid Calcium AST ALT Alkaline Phosphatase CK-MB (CK-2) CK-MB (CK-2) Rel Index Total Protein Albumin TSH Urine WBC (Auto) Salicylates 04/01/17 04/02/17 04/02/17 21:34 05:32 14:05 WBC RBC Hgb Hct MCV MCH RDW Plt Count Lymph % (Auto) [place] % (Auto) Eos % (Auto) [place] # Seg Neutrophils % Seg Neuts % (Manual) Lymphocytes % (Manual) Seg Neutrophils # Seg Neutrophils # Man Lymphocytes # (Manual) APTT POC ABG pH ABG pH POC ABG pCO2 POC ABG pO2 ABG pO2 ABG HCO3 ABG Base Excess ABG Hemoglobin VBG pH Oxyhemoglobin Sodium Potassium Chloride Carbon Dioxide BUN Creatinine Glucose POC Glucose 292 H 220 H 187 H Lactic Acid Calcium AST ALT Alkaline Phosphatase CK-MB (CK-2) CK-MB (CK-2) Rel Index Total Protein Albumin TSH Urine WBC (Auto) Salicylates 04/02/17 04/03/17 04/03/17 21:57 04:49 14:12 WBC RBC Hgb Hct MCV MCH RDW Plt Count Lymph % (Auto) [place] % (Auto) Eos % (Auto) [place] # Seg Neutrophils % Seg Neuts % (Manual) Lymphocytes % (Manual) Seg Neutrophils # Seg Neutrophils # Man Lymphocytes # (Manual) APTT POC ABG pH ABG pH POC ABG pCO2 POC ABG pO2 ABG pO2 ABG HCO3 ABG Base Excess ABG Hemoglobin VBG pH Oxyhemoglobin Sodium Potassium Chloride Carbon Dioxide BUN Creatinine Glucose POC Glucose 285 H 256 H 197 H Lactic Acid Calcium AST ALT Alkaline Phosphatase CK-MB (CK-2) CK-MB (CK-2) Rel Index Total Protein Albumin TSH Urine WBC (Auto) Salicylates 04/03/17 04/04/17 04/04/17 21:11 05:20 13:18 WBC RBC Hgb Hct MCV MCH RDW Plt Count Lymph % (Auto) [place] % (Auto) Eos % (Auto) [place] # Seg Neutrophils % Seg Neuts % (Manual) Lymphocytes % (Manual) Seg Neutrophils # Seg Neutrophils # Man Lymphocytes # (Manual) APTT POC ABG pH ABG pH POC ABG pCO2 POC ABG pO2 ABG pO2 ABG HCO3 ABG Base Excess ABG Hemoglobin VBG pH Oxyhemoglobin Sodium Potassium Chloride Carbon Dioxide BUN Creatinine Glucose POC Glucose 166 H 228 H 252 H Lactic Acid Calcium AST ALT Alkaline Phosphatase CK-MB (CK-2) CK-MB (CK-2) Rel Index Total Protein Albumin TSH Urine WBC (Auto) Salicylates 04/04/17 04/05/17 04/05/17 21:51 06:14 09:54 WBC RBC Hgb Hct MCV MCH RDW Plt Count Lymph % (Auto) [place] % (Auto) Eos % (Auto) [place] # Seg Neutrophils % Seg Neuts % (Manual) Lymphocytes % (Manual) Seg Neutrophils # Seg Neutrophils # Man Lymphocytes # (Manual) APTT POC ABG pH ABG pH POC ABG pCO2 POC ABG pO2 ABG pO2 ABG HCO3 ABG Base Excess ABG Hemoglobin VBG pH Oxyhemoglobin Sodium Potassium Chloride Carbon Dioxide BUN Creatinine Glucose POC Glucose 252 H 152 H 181 H Lactic Acid Calcium AST ALT Alkaline Phosphatase CK-MB (CK-2) CK-MB (CK-2) Rel Index Total Protein Albumin TSH Urine WBC (Auto) Salicylates 04/05/17 04/05/17 04/05/17 14:49 17:34 21:38 WBC RBC Hgb Hct MCV MCH RDW Plt Count Lymph % (Auto) [place] % (Auto) Eos % (Auto) [place] # Seg Neutrophils % Seg Neuts % (Manual) Lymphocytes % (Manual) Seg Neutrophils # Seg Neutrophils # Man Lymphocytes # (Manual) APTT POC ABG pH ABG pH POC ABG pCO2 POC ABG pO2 ABG pO2 ABG HCO3 ABG Base Excess ABG Hemoglobin VBG pH Oxyhemoglobin Sodium Potassium Chloride Carbon Dioxide BUN Creatinine Glucose POC Glucose 219 H 268 H 278 H Lactic Acid Calcium AST ALT Alkaline Phosphatase CK-MB (CK-2) CK-MB (CK-2) Rel Index Total Protein Albumin TSH Urine WBC (Auto) Salicylates 04/06/17 04/06/17 04/07/17 15:04 22:14 05:09 WBC RBC Hgb Hct MCV MCH RDW Plt Count Lymph % (Auto) [place] % (Auto) Eos % (Auto) [place] # Seg Neutrophils % Seg Neuts % (Manual) Lymphocytes % (Manual) Seg Neutrophils # Seg Neutrophils # Man Lymphocytes # (Manual) APTT POC ABG pH ABG pH POC ABG pCO2 POC ABG pO2 ABG pO2 ABG HCO3 ABG Base Excess ABG Hemoglobin VBG pH Oxyhemoglobin Sodium Potassium Chloride Carbon Dioxide BUN Creatinine Glucose POC Glucose 285 H 106 H 334 H Lactic Acid Calcium AST ALT Alkaline Phosphatase CK-MB (CK-2) CK-MB (CK-2) Rel Index Total Protein Albumin TSH Urine WBC (Auto) Salicylates 04/07/17 04/07/17 04/08/17 14:45 21:48 05:28 WBC RBC Hgb Hct MCV MCH RDW Plt Count Lymph % (Auto) [place] % (Auto) Eos % (Auto) [place] # Seg Neutrophils % Seg Neuts % (Manual) Lymphocytes % (Manual) Seg Neutrophils # Seg Neutrophils # Man Lymphocytes # (Manual) APTT POC ABG pH ABG pH POC ABG pCO2 POC ABG pO2 ABG pO2 ABG HCO3 ABG Base Excess ABG Hemoglobin VBG pH Oxyhemoglobin Sodium Potassium Chloride Carbon Dioxide BUN Creatinine Glucose POC Glucose 173 H 304 H 314 H Lactic Acid Calcium AST ALT Alkaline Phosphatase CK-MB (CK-2) CK-MB (CK-2) Rel Index Total Protein Albumin TSH Urine WBC (Auto) Salicylates 04/08/17 04/08/17 04/08/17 15:57 16:17 22:21 WBC RBC Hgb Hct MCV MCH RDW Plt Count Lymph % (Auto) [place] % (Auto) Eos % (Auto) [place] # Seg Neutrophils % Seg Neuts % (Manual) Lymphocytes % (Manual) Seg Neutrophils # Seg Neutrophils # Man Lymphocytes # (Manual) APTT POC ABG pH ABG pH POC ABG pCO2 POC ABG pO2 ABG pO2 ABG HCO3 ABG Base Excess ABG Hemoglobin VBG pH Oxyhemoglobin Sodium Potassium Chloride Carbon Dioxide BUN Creatinine Glucose POC Glucose 356 H 337 H 323 H Lactic Acid Calcium AST ALT Alkaline Phosphatase CK-MB (CK-2) CK-MB (CK-2) Rel Index Total Protein Albumin TSH Urine WBC (Auto) Salicylates 04/09/17 04/09/17 04/09/17 06:19 15:30 21:52 WBC RBC Hgb Hct MCV MCH RDW Plt Count Lymph % (Auto) [place] % (Auto) Eos % (Auto) [place] # Seg Neutrophils % Seg Neuts % (Manual) Lymphocytes % (Manual) Seg Neutrophils # Seg Neutrophils # Man Lymphocytes # (Manual) APTT POC ABG pH ABG pH POC ABG pCO2 POC ABG pO2 ABG pO2 ABG HCO3 ABG Base Excess ABG Hemoglobin VBG pH Oxyhemoglobin Sodium Potassium Chloride Carbon Dioxide BUN Creatinine Glucose POC Glucose 340 H 332 H 341 H Lactic Acid Calcium AST ALT Alkaline Phosphatase CK-MB (CK-2) CK-MB (CK-2) Rel Index Total Protein Albumin TSH Urine WBC (Auto) Salicylates 04/10/17 04/10/17 04/10/17 01:53 05:33 17:40 WBC RBC Hgb Hct MCV MCH RDW Plt Count Lymph % (Auto) [place] % (Auto) Eos % (Auto) [place] # Seg Neutrophils % Seg Neuts % (Manual) Lymphocytes % (Manual) Seg Neutrophils # Seg Neutrophils # Man Lymphocytes # (Manual) APTT POC ABG pH ABG pH POC ABG pCO2 POC ABG pO2 ABG pO2 ABG HCO3 ABG Base Excess ABG Hemoglobin VBG pH Oxyhemoglobin Sodium Potassium Chloride Carbon Dioxide BUN Creatinine Glucose POC Glucose 261 H 277 H 304 H Lactic Acid Calcium AST ALT Alkaline Phosphatase CK-MB (CK-2) CK-MB (CK-2) Rel Index Total Protein Albumin TSH Urine WBC (Auto) Salicylates 04/10/17 04/11/17 04/11/17 21:29 05:28 14:02 WBC RBC Hgb Hct MCV MCH RDW Plt Count Lymph % (Auto) [place] % (Auto) Eos % (Auto) [place] # Seg Neutrophils % Seg Neuts % (Manual) Lymphocytes % (Manual) Seg Neutrophils # Seg Neutrophils # Man Lymphocytes # (Manual) APTT POC ABG pH ABG pH POC ABG pCO2 POC ABG pO2 ABG pO2 ABG HCO3 ABG Base Excess ABG Hemoglobin VBG pH Oxyhemoglobin Sodium Potassium Chloride Carbon Dioxide BUN Creatinine Glucose POC Glucose 361 H 204 H 236 H Lactic Acid Calcium AST ALT Alkaline Phosphatase CK-MB (CK-2) CK-MB (CK-2) Rel Index Total Protein Albumin TSH Urine WBC (Auto) Salicylates 04/11/17 04/12/17 04/12/17 21:43 05:00 11:53 WBC RBC Hgb Hct MCV MCH RDW Plt Count Lymph % (Auto) [place] % (Auto) Eos % (Auto) [place] # Seg Neutrophils % Seg Neuts % (Manual) Lymphocytes % (Manual) Seg Neutrophils # Seg Neutrophils # Man Lymphocytes # (Manual) APTT POC ABG pH ABG pH POC ABG pCO2 POC ABG pO2 ABG pO2 ABG HCO3 ABG Base Excess ABG Hemoglobin VBG pH Oxyhemoglobin Sodium Potassium Chloride Carbon Dioxide BUN Creatinine Glucose POC Glucose 287 H 294 H 265 H Lactic Acid Calcium AST ALT Alkaline Phosphatase CK-MB (CK-2) CK-MB (CK-2) Rel Index Total Protein Albumin TSH Urine WBC (Auto) Salicylates 04/12/17 04/12/17 04/13/17 21:21 23:44 06:05 WBC RBC Hgb Hct MCV MCH RDW Plt Count Lymph % (Auto) [place] % (Auto) Eos % (Auto) [place] # Seg Neutrophils % Seg Neuts % (Manual) Lymphocytes % (Manual) Seg Neutrophils # Seg Neutrophils # Man Lymphocytes # (Manual) APTT POC ABG pH ABG pH POC ABG pCO2 POC ABG pO2 ABG pO2 ABG HCO3 ABG Base Excess ABG Hemoglobin VBG pH Oxyhemoglobin Sodium Potassium Chloride Carbon Dioxide BUN Creatinine Glucose POC Glucose 289 H 348 H 326 H Lactic Acid Calcium AST ALT Alkaline Phosphatase CK-MB (CK-2) CK-MB (CK-2) Rel Index Total Protein Albumin TSH Urine WBC (Auto) Salicylates 04/13/17 04/13/17 04/14/17 13:54 21:15 05:49 WBC RBC Hgb Hct MCV MCH RDW Plt Count Lymph % (Auto) [place] % (Auto) Eos % (Auto) [place] # Seg Neutrophils % Seg Neuts % (Manual) Lymphocytes % (Manual) Seg Neutrophils # Seg Neutrophils # Man Lymphocytes # (Manual) APTT POC ABG pH ABG pH POC ABG pCO2 POC ABG pO2 ABG pO2 ABG HCO3 ABG Base Excess ABG Hemoglobin VBG pH Oxyhemoglobin Sodium Potassium Chloride Carbon Dioxide BUN Creatinine Glucose POC Glucose 326 H 263 H 319 H Lactic Acid Calcium AST ALT Alkaline Phosphatase CK-MB (CK-2) CK-MB (CK-2) Rel Index Total Protein Albumin TSH Urine WBC (Auto) Salicylates 04/14/17 04/14/17 04/15/17 13:26 23:13 14:24 WBC RBC Hgb Hct MCV MCH RDW Plt Count Lymph % (Auto) [place] % (Auto) Eos % (Auto) [place] # Seg Neutrophils % Seg Neuts % (Manual) Lymphocytes % (Manual) Seg Neutrophils # Seg Neutrophils # Man Lymphocytes # (Manual) APTT POC ABG pH ABG pH POC ABG pCO2 POC ABG pO2 ABG pO2 ABG HCO3 ABG Base Excess ABG Hemoglobin VBG pH Oxyhemoglobin Sodium Potassium Chloride Carbon Dioxide BUN Creatinine Glucose POC Glucose 207 H 365 H 308 H Lactic Acid Calcium AST ALT Alkaline Phosphatase CK-MB (CK-2) CK-MB (CK-2) Rel Index Total Protein Albumin TSH Urine WBC (Auto) Salicylates 04/15/17 04/15/17 04/15/17 21:00 22:18 23:12 WBC RBC Hgb Hct MCV MCH RDW Plt Count Lymph % (Auto) [place] % (Auto) Eos % (Auto) [place] # Seg Neutrophils % Seg Neuts % (Manual) Lymphocytes % (Manual) Seg Neutrophils # Seg Neutrophils # Man Lymphocytes # (Manual) APTT POC ABG pH ABG pH POC ABG pCO2 POC ABG pO2 ABG pO2 ABG HCO3 ABG Base Excess ABG Hemoglobin VBG pH Oxyhemoglobin Sodium Potassium Chloride Carbon Dioxide BUN Creatinine Glucose POC Glucose 407 H 287 H 325 H Lactic Acid Calcium AST ALT Alkaline Phosphatase CK-MB (CK-2) CK-MB (CK-2) Rel Index Total Protein Albumin TSH Urine WBC (Auto) Salicylates 04/16/17 04/16/17 04/16/17 05:30 10:07 14:26 WBC RBC Hgb Hct MCV MCH RDW Plt Count Lymph % (Auto) [place] % (Auto) Eos % (Auto) [place] # Seg Neutrophils % Seg Neuts % (Manual) Lymphocytes % (Manual) Seg Neutrophils # Seg Neutrophils # Man Lymphocytes # (Manual) APTT POC ABG pH ABG pH POC ABG pCO2 POC ABG pO2 ABG pO2 ABG HCO3 ABG Base Excess ABG Hemoglobin VBG pH Oxyhemoglobin Sodium Potassium Chloride Carbon Dioxide BUN Creatinine Glucose POC Glucose 304 H 217 H 344 H Lactic Acid Calcium AST ALT Alkaline Phosphatase CK-MB (CK-2) CK-MB (CK-2) Rel Index Total Protein Albumin TSH Urine WBC (Auto) Salicylates 04/16/17 04/17/17 04/17/17 21:25 05:12 14:19 WBC RBC Hgb Hct MCV MCH RDW Plt Count Lymph % (Auto) [place] % (Auto) Eos % (Auto) [place] # Seg Neutrophils % Seg Neuts % (Manual) Lymphocytes % (Manual) Seg Neutrophils # Seg Neutrophils # Man Lymphocytes # (Manual) APTT POC ABG pH ABG pH POC ABG pCO2 POC ABG pO2 ABG pO2 ABG HCO3 ABG Base Excess ABG Hemoglobin VBG pH Oxyhemoglobin Sodium Potassium Chloride Carbon Dioxide BUN Creatinine Glucose POC Glucose 305 H 233 H 324 H Lactic Acid Calcium AST ALT Alkaline Phosphatase CK-MB (CK-2) CK-MB (CK-2) Rel Index Total Protein Albumin TSH Urine WBC (Auto) Salicylates 04/17/17 04/18/17 04/18/17 21:42 06:21 14:08 WBC RBC Hgb Hct MCV MCH RDW Plt Count Lymph % (Auto) [place] % (Auto) Eos % (Auto) [place] # Seg Neutrophils % Seg Neuts % (Manual) Lymphocytes % (Manual) Seg Neutrophils # Seg Neutrophils # Man Lymphocytes # (Manual) APTT POC ABG pH ABG pH POC ABG pCO2 POC ABG pO2 ABG pO2 ABG HCO3 ABG Base Excess ABG Hemoglobin VBG pH Oxyhemoglobin Sodium Potassium Chloride Carbon Dioxide BUN Creatinine Glucose POC Glucose 270 H 308 H 290 H Lactic Acid Calcium AST ALT Alkaline Phosphatase CK-MB (CK-2) CK-MB (CK-2) Rel Index Total Protein Albumin TSH Urine WBC (Auto) Salicylates 04/18/17 04/19/17 04/19/17 21:50 05:20 13:59 WBC RBC Hgb Hct MCV MCH RDW Plt Count Lymph % (Auto) [place] % (Auto) Eos % (Auto) [place] # Seg Neutrophils % Seg Neuts % (Manual) Lymphocytes % (Manual) Seg Neutrophils # Seg Neutrophils # Man Lymphocytes # (Manual) APTT POC ABG pH ABG pH POC ABG pCO2 POC ABG pO2 ABG pO2 ABG HCO3 ABG Base Excess ABG Hemoglobin VBG pH Oxyhemoglobin Sodium Potassium Chloride Carbon Dioxide BUN Creatinine Glucose POC Glucose 167 H 372 H 321 H Lactic Acid Calcium AST ALT Alkaline Phosphatase CK-MB (CK-2) CK-MB (CK-2) Rel Index Total Protein Albumin TSH Urine WBC (Auto) Salicylates 04/19/17 04/20/17 04/20/17 21:16 14:18 21:34 WBC RBC Hgb Hct MCV MCH RDW Plt Count Lymph % (Auto) [place] % (Auto) Eos % (Auto) [place] # Seg Neutrophils % Seg Neuts % (Manual) Lymphocytes % (Manual) Seg Neutrophils # Seg Neutrophils # Man Lymphocytes # (Manual) APTT POC ABG pH ABG pH POC ABG pCO2 POC ABG pO2 ABG pO2 ABG HCO3 ABG Base Excess ABG Hemoglobin VBG pH Oxyhemoglobin Sodium Potassium Chloride Carbon Dioxide BUN Creatinine Glucose POC Glucose 182 H 218 H 121 H Lactic Acid Calcium AST ALT Alkaline Phosphatase CK-MB (CK-2) CK-MB (CK-2) Rel Index Total Protein Albumin TSH Urine WBC (Auto) Salicylates 04/21/17 04/21/17 04/21/17 00:08 05:16 12:41 WBC RBC Hgb Hct MCV MCH RDW Plt Count Lymph % (Auto) [place] % (Auto) Eos % (Auto) [place] # Seg Neutrophils % Seg Neuts % (Manual) Lymphocytes % (Manual) Seg Neutrophils # Seg Neutrophils # Man Lymphocytes # (Manual) APTT POC ABG pH ABG pH POC ABG pCO2 POC ABG pO2 ABG pO2 ABG HCO3 ABG Base Excess ABG Hemoglobin VBG pH Oxyhemoglobin Sodium Potassium Chloride Carbon Dioxide BUN Creatinine Glucose POC Glucose 128 H 120 H 216 H Lactic Acid Calcium AST ALT Alkaline Phosphatase CK-MB (CK-2) CK-MB (CK-2) Rel Index Total Protein Albumin TSH Urine WBC (Auto) Salicylates 04/21/17 04/22/17 04/22/17 23:40 14:12 23:38 WBC RBC Hgb Hct MCV MCH RDW Plt Count Lymph % (Auto) [place] % (Auto) Eos % (Auto) [place] # Seg Neutrophils % Seg Neuts % (Manual) Lymphocytes % (Manual) Seg Neutrophils # Seg Neutrophils # Man Lymphocytes # (Manual) APTT POC ABG pH ABG pH POC ABG pCO2 POC ABG pO2 ABG pO2 ABG HCO3 ABG Base Excess ABG Hemoglobin VBG pH Oxyhemoglobin Sodium Potassium Chloride Carbon Dioxide BUN Creatinine Glucose POC Glucose 157 H 242 H 117 H Lactic Acid Calcium AST ALT Alkaline Phosphatase CK-MB (CK-2) CK-MB (CK-2) Rel Index Total Protein Albumin TSH Urine WBC (Auto) Salicylates 04/23/17 04/23/17 04/24/17 05:18 14:01 03:24 WBC RBC Hgb Hct MCV MCH RDW Plt Count Lymph % (Auto) [place] % (Auto) Eos % (Auto) [place] # Seg Neutrophils % Seg Neuts % (Manual) Lymphocytes % (Manual) Seg Neutrophils # Seg Neutrophils # Man Lymphocytes # (Manual) APTT POC ABG pH ABG pH POC ABG pCO2 POC ABG pO2 ABG pO2 ABG HCO3 ABG Base Excess ABG Hemoglobin VBG pH Oxyhemoglobin Sodium Potassium Chloride Carbon Dioxide BUN Creatinine Glucose POC Glucose 163 H 57 L 177 H Lactic Acid Calcium AST ALT Alkaline Phosphatase CK-MB (CK-2) CK-MB (CK-2) Rel Index Total Protein Albumin TSH Urine WBC (Auto) Salicylates 04/24/17 04/24/17 04/24/17 04:00 04:00 06:33 WBC RBC Hgb 9.9 L Hct 30.0 L MCV 79 L MCH 26 L RDW 17.1 H Plt Count 625 H Lymph % (Auto) [place] % (Auto) 8.4 H Eos % (Auto) [place] # Seg Neutrophils % Seg Neuts % (Manual) Lymphocytes % (Manual) Seg Neutrophils # Seg Neutrophils # Man Lymphocytes # (Manual) APTT POC ABG pH ABG pH POC ABG pCO2 POC ABG pO2 ABG pO2 ABG HCO3 ABG Base Excess ABG Hemoglobin VBG pH Oxyhemoglobin Sodium 136 L Potassium Chloride 94.9 L Carbon Dioxide BUN 40 H Creatinine 0.6 L Glucose 176 H POC Glucose 230 H Lactic Acid Calcium AST 67 H ALT Alkaline Phosphatase 294 H CK-MB (CK-2) CK-MB (CK-2) Rel Index Total Protein 9.0 H Albumin 2.5 L TSH Urine WBC (Auto) Salicylates 04/24/17 04/25/17 04/25/17 13:50 00:22 02:55 WBC RBC 3.54 L Hgb 9.0 L Hct 27.9 L MCV 79 L MCH 26 L RDW 17.5 H Plt Count 574 H Lymph % (Auto) [place] % (Auto) 10.4 H Eos % (Auto) [place] # 1.0 H Seg Neutrophils % Seg Neuts % (Manual) Lymphocytes % (Manual) Seg Neutrophils # Seg Neutrophils # Man Lymphocytes # (Manual) APTT POC ABG pH ABG pH POC ABG pCO2 POC ABG pO2 ABG pO2 ABG HCO3 ABG Base Excess ABG Hemoglobin VBG pH Oxyhemoglobin Sodium Potassium Chloride Carbon Dioxide BUN Creatinine Glucose POC Glucose 116 H < 40 L Lactic Acid Calcium AST ALT Alkaline Phosphatase CK-MB (CK-2) CK-MB (CK-2) Rel Index Total Protein Albumin TSH Urine WBC (Auto) Salicylates 04/25/17 04/25/17 04/25/17 02:55 11:15 18:36 WBC RBC Hgb Hct MCV MCH RDW Plt Count Lymph % (Auto) [place] % (Auto) Eos % (Auto) [place] # Seg Neutrophils % Seg Neuts % (Manual) Lymphocytes % (Manual) Seg Neutrophils # Seg Neutrophils # Man Lymphocytes # (Manual) APTT POC ABG pH ABG pH POC ABG pCO2 POC ABG pO2 ABG pO2 ABG HCO3 ABG Base Excess ABG Hemoglobin VBG pH Oxyhemoglobin Sodium Potassium Chloride 96.2 L Carbon Dioxide BUN 39 H Creatinine 0.7 L Glucose 125 H POC Glucose 227 H 280 H Lactic Acid Calcium AST ALT Alkaline Phosphatase 247 H CK-MB (CK-2) CK-MB (CK-2) Rel Index Total Protein Albumin 2.7 L TSH Urine WBC (Auto) Salicylates 04/25/17 04/26/17 04/26/17 21:49 06:53 07:27 WBC RBC 3.61 L Hgb 9.1 L Hct 28.1 L MCV 78 L MCH 25 L RDW 17.4 H Plt Count 594 H Lymph % (Auto) [place] % (Auto) 9.2 H Eos % (Auto) [place] # 1.0 H Seg Neutrophils % 70.6 H Seg Neuts % (Manual) Lymphocytes % (Manual) Seg Neutrophils # Seg Neutrophils # Man Lymphocytes # (Manual) APTT POC ABG pH ABG pH POC ABG pCO2 POC ABG pO2 ABG pO2 ABG HCO3 ABG Base Excess ABG Hemoglobin VBG pH Oxyhemoglobin Sodium Potassium Chloride Carbon Dioxide BUN Creatinine Glucose POC Glucose 192 H 60 L Lactic Acid Calcium AST ALT Alkaline Phosphatase CK-MB (CK-2) CK-MB (CK-2) Rel Index Total Protein Albumin TSH Urine WBC (Auto) Salicylates 04/26/17 04/26/17 04/26/17 07:27 07:28 13:32 WBC RBC Hgb Hct MCV MCH RDW Plt Count Lymph % (Auto) [place] % (Auto) Eos % (Auto) [place] # Seg Neutrophils % Seg Neuts % (Manual) Lymphocytes % (Manual) Seg Neutrophils # Seg Neutrophils # Man Lymphocytes # (Manual) APTT POC ABG pH ABG pH POC ABG pCO2 POC ABG pO2 ABG pO2 ABG HCO3 ABG Base Excess ABG Hemoglobin VBG pH Oxyhemoglobin Sodium Potassium Chloride 95.0 L Carbon Dioxide BUN 42 H Creatinine 0.7 L Glucose 172 H POC Glucose 190 H 168 H Lactic Acid Calcium AST 56 H ALT Alkaline Phosphatase 274 H CK-MB (CK-2) CK-MB (CK-2) Rel Index Total Protein 8.9 H Albumin 2.7 L TSH Urine WBC (Auto) Salicylates 04/26/17 04/27/17 04/27/17 23:36 05:10 05:10 WBC RBC 3.49 L Hgb 8.7 L Hct 27.0 L MCV 77 L MCH 25 L RDW 17.4 H Plt Count 558 H Lymph % (Auto) [place] % (Auto) 9.6 H Eos % (Auto) [place] # Seg Neutrophils % Seg Neuts % (Manual) Lymphocytes % (Manual) Seg Neutrophils # Seg Neutrophils # Man Lymphocytes # (Manual) APTT POC ABG pH ABG pH POC ABG pCO2 POC ABG pO2 ABG pO2 ABG HCO3 ABG Base Excess ABG Hemoglobin VBG pH Oxyhemoglobin Sodium 133 L Potassium Chloride 93.5 L Carbon Dioxide BUN 40 H Creatinine 0.7 L Glucose 179 H POC Glucose 204 H Lactic Acid Calcium AST 73 H ALT 58 H Alkaline Phosphatase 294 H CK-MB (CK-2) CK-MB (CK-2) Rel Index Total Protein 8.7 H Albumin 2.4 L TSH Urine WBC (Auto) Salicylates 04/27/17 04/27/17 04/27/17 05:45 14:08 23:46 WBC RBC Hgb Hct MCV MCH RDW Plt Count Lymph % (Auto) [place] % (Auto) Eos % (Auto) [place] # Seg Neutrophils % Seg Neuts % (Manual) Lymphocytes % (Manual) Seg Neutrophils # Seg Neutrophils # Man Lymphocytes # (Manual) APTT POC ABG pH ABG pH POC ABG pCO2 POC ABG pO2 ABG pO2 ABG HCO3 ABG Base Excess ABG Hemoglobin VBG pH Oxyhemoglobin Sodium Potassium Chloride Carbon Dioxide BUN Creatinine Glucose POC Glucose 200 H 206 H 207 H Lactic Acid Calcium AST ALT Alkaline Phosphatase CK-MB (CK-2) CK-MB (CK-2) Rel Index Total Protein Albumin TSH Urine WBC (Auto) Salicylates 04/28/17 04/28/17 04/28/17 04:48 04:53 05:10 WBC RBC 3.48 L Hgb 8.8 L Hct 26.7 L MCV 77 L MCH 25 L RDW 17.0 H Plt Count 515 H Lymph % (Auto) [place] % (Auto) 8.4 H Eos % (Auto) [place] # Seg Neutrophils % 70.6 H Seg Neuts % (Manual) Lymphocytes % (Manual) Seg Neutrophils # Seg Neutrophils # Man Lymphocytes # (Manual) APTT POC ABG pH ABG pH POC ABG pCO2 POC ABG pO2 ABG pO2 ABG HCO3 ABG Base Excess ABG Hemoglobin VBG pH Oxyhemoglobin Sodium Potassium Chloride Carbon Dioxide BUN Creatinine Glucose POC Glucose 43 L 41 L Lactic Acid Calcium AST ALT Alkaline Phosphatase CK-MB (CK-2) CK-MB (CK-2) Rel Index Total Protein Albumin TSH Urine WBC (Auto) Salicylates 04/28/17 04/28/17 04/28/17 05:10 14:06 22:07 WBC RBC Hgb Hct MCV MCH RDW Plt Count Lymph % (Auto) [place] % (Auto) Eos % (Auto) [place] # Seg Neutrophils % Seg Neuts % (Manual) Lymphocytes % (Manual) Seg Neutrophils # Seg Neutrophils # Man Lymphocytes # (Manual) APTT POC ABG pH ABG pH POC ABG pCO2 POC ABG pO2 ABG pO2 ABG HCO3 ABG Base Excess ABG Hemoglobin VBG pH Oxyhemoglobin Sodium 136 L Potassium Chloride 95.2 L Carbon Dioxide BUN 42 H Creatinine Glucose 63 L POC Glucose 303 H 227 H Lactic Acid Calcium AST 45 H ALT Alkaline Phosphatase 271 H CK-MB (CK-2) CK-MB (CK-2) Rel Index Total Protein 8.9 H Albumin 2.5 L TSH Urine WBC (Auto) Salicylates 04/29/17 04/29/17 04/29/17 06:40 14:11 21:35 WBC RBC Hgb Hct MCV MCH RDW Plt Count Lymph % (Auto) [place] % (Auto) Eos % (Auto) [place] # Seg Neutrophils % Seg Neuts % (Manual) Lymphocytes % (Manual) Seg Neutrophils # Seg Neutrophils # Man Lymphocytes # (Manual) APTT POC ABG pH ABG pH POC ABG pCO2 POC ABG pO2 ABG pO2 ABG HCO3 ABG Base Excess ABG Hemoglobin VBG pH Oxyhemoglobin Sodium Potassium Chloride Carbon Dioxide BUN Creatinine Glucose POC Glucose 254 H 244 H 184 H Lactic Acid Calcium AST ALT Alkaline Phosphatase CK-MB (CK-2) CK-MB (CK-2) Rel Index Total Protein Albumin TSH Urine WBC (Auto) Salicylates 04/30/17 04/30/17 04/30/17 05:17 14:03 22:08 WBC RBC Hgb Hct MCV MCH RDW Plt Count Lymph % (Auto) [place] % (Auto) Eos % (Auto) [place] # Seg Neutrophils % Seg Neuts % (Manual) Lymphocytes % (Manual) Seg Neutrophils # Seg Neutrophils # Man Lymphocytes # (Manual) APTT POC ABG pH ABG pH POC ABG pCO2 POC ABG pO2 ABG pO2 ABG HCO3 ABG Base Excess ABG Hemoglobin VBG pH Oxyhemoglobin Sodium Potassium Chloride Carbon Dioxide BUN Creatinine Glucose POC Glucose 173 H 182 H 247 H Lactic Acid Calcium AST ALT Alkaline Phosphatase CK-MB (CK-2) CK-MB (CK-2) Rel Index Total Protein Albumin TSH Urine WBC (Auto) Salicylates 05/01/17 05/01/17 05/01/17 05:04 15:37 18:50 WBC RBC Hgb Hct MCV MCH RDW Plt Count Lymph % (Auto) [place] % (Auto) Eos % (Auto) [place] # Seg Neutrophils % Seg Neuts % (Manual) Lymphocytes % (Manual) Seg Neutrophils # Seg Neutrophils # Man Lymphocytes # (Manual) APTT POC ABG pH ABG pH POC ABG pCO2 POC ABG pO2 ABG pO2 ABG HCO3 ABG Base Excess ABG Hemoglobin VBG pH Oxyhemoglobin Sodium Potassium Chloride Carbon Dioxide BUN Creatinine Glucose POC Glucose 335 H 68 L 144 H Lactic Acid Calcium AST ALT Alkaline Phosphatase CK-MB (CK-2) CK-MB (CK-2) Rel Index Total Protein Albumin TSH Urine WBC (Auto) Salicylates 05/01/17 05/02/17 05/02/17 22:13 04:59 14:06 WBC RBC Hgb Hct MCV MCH RDW Plt Count Lymph % (Auto) [place] % (Auto) Eos % (Auto) [place] # Seg Neutrophils % Seg Neuts % (Manual) Lymphocytes % (Manual) Seg Neutrophils # Seg Neutrophils # Man Lymphocytes # (Manual) APTT POC ABG pH ABG pH POC ABG pCO2 POC ABG pO2 ABG pO2 ABG HCO3 ABG Base Excess ABG Hemoglobin VBG pH Oxyhemoglobin Sodium Potassium Chloride Carbon Dioxide BUN Creatinine Glucose POC Glucose 192 H 225 H 165 H Lactic Acid Calcium AST ALT Alkaline Phosphatase CK-MB (CK-2) CK-MB (CK-2) Rel Index Total Protein Albumin TSH Urine WBC (Auto) Salicylates 05/02/17 05/03/17 05/03/17 21:20 05:16 16:56 WBC RBC Hgb Hct MCV MCH RDW Plt Count Lymph % (Auto) [place] % (Auto) Eos % (Auto) [place] # Seg Neutrophils % Seg Neuts % (Manual) Lymphocytes % (Manual) Seg Neutrophils # Seg Neutrophils # Man Lymphocytes # (Manual) APTT POC ABG pH ABG pH POC ABG pCO2 POC ABG pO2 ABG pO2 ABG HCO3 ABG Base Excess ABG Hemoglobin VBG pH Oxyhemoglobin Sodium Potassium Chloride Carbon Dioxide BUN Creatinine Glucose POC Glucose 181 H 323 H 125 H Lactic Acid Calcium AST ALT Alkaline Phosphatase CK-MB (CK-2) CK-MB (CK-2) Rel Index Total Protein Albumin TSH Urine WBC (Auto) Salicylates 05/03/17 05/04/17 05/04/17 21:46 05:01 14:24 WBC RBC Hgb Hct MCV MCH RDW Plt Count Lymph % (Auto) [place] % (Auto) Eos % (Auto) [place] # Seg Neutrophils % Seg Neuts % (Manual) Lymphocytes % (Manual) Seg Neutrophils # Seg Neutrophils # Man Lymphocytes # (Manual) APTT POC ABG pH ABG pH POC ABG pCO2 POC ABG pO2 ABG pO2 ABG HCO3 ABG Base Excess ABG Hemoglobin VBG pH Oxyhemoglobin Sodium Potassium Chloride Carbon Dioxide BUN Creatinine Glucose POC Glucose 210 H 360 H 219 H Lactic Acid Calcium AST ALT Alkaline Phosphatase CK-MB (CK-2) CK-MB (CK-2) Rel Index Total Protein Albumin TSH Urine WBC (Auto) Salicylates 05/04/17 05/05/17 05/05/17 21:39 01:58 05:13 WBC RBC Hgb Hct MCV MCH RDW Plt Count Lymph % (Auto) [place] % (Auto) Eos % (Auto) [place] # Seg Neutrophils % Seg Neuts % (Manual) Lymphocytes % (Manual) Seg Neutrophils # Seg Neutrophils # Man Lymphocytes # (Manual) APTT POC ABG pH ABG pH POC ABG pCO2 POC ABG pO2 ABG pO2 ABG HCO3 ABG Base Excess ABG Hemoglobin VBG pH Oxyhemoglobin Sodium Potassium Chloride Carbon Dioxide BUN Creatinine Glucose POC Glucose 126 H 175 H 267 H Lactic Acid Calcium AST ALT Alkaline Phosphatase CK-MB (CK-2) CK-MB (CK-2) Rel Index Total Protein Albumin TSH Urine WBC (Auto) Salicylates 05/05/17 05/05/17 05/05/17 12:19 14:11 21:18 WBC RBC Hgb Hct MCV MCH RDW Plt Count Lymph % (Auto) [place] % (Auto) Eos % (Auto) [place] # Seg Neutrophils % Seg Neuts % (Manual) Lymphocytes % (Manual) Seg Neutrophils # Seg Neutrophils # Man Lymphocytes # (Manual) APTT POC ABG pH ABG pH POC ABG pCO2 POC ABG pO2 ABG pO2 ABG HCO3 ABG Base Excess ABG Hemoglobin VBG pH Oxyhemoglobin Sodium Potassium Chloride Carbon Dioxide BUN Creatinine Glucose POC Glucose 221 H 205 H 156 H Lactic Acid Calcium AST ALT Alkaline Phosphatase CK-MB (CK-2) CK-MB (CK-2) Rel Index Total Protein Albumin TSH Urine WBC (Auto) Salicylates 05/06/17 05/06/17 05/06/17 06:02 15:26 21:43 WBC RBC Hgb Hct MCV MCH RDW Plt Count Lymph % (Auto) [place] % (Auto) Eos % (Auto) [place] # Seg Neutrophils % Seg Neuts % (Manual) Lymphocytes % (Manual) Seg Neutrophils # Seg Neutrophils # Man Lymphocytes # (Manual) APTT POC ABG pH ABG pH POC ABG pCO2 POC ABG pO2 ABG pO2 ABG HCO3 ABG Base Excess ABG Hemoglobin VBG pH Oxyhemoglobin Sodium Potassium Chloride Carbon Dioxide BUN Creatinine Glucose POC Glucose 263 H 143 H 145 H Lactic Acid Calcium AST ALT Alkaline Phosphatase CK-MB (CK-2) CK-MB (CK-2) Rel Index Total Protein Albumin TSH Urine WBC (Auto) Salicylates 05/07/17 05/07/17 05/07/17 05:52 21:46 21:49 WBC RBC Hgb Hct MCV MCH RDW Plt Count Lymph % (Auto) [place] % (Auto) Eos % (Auto) [place] # Seg Neutrophils % Seg Neuts % (Manual) Lymphocytes % (Manual) Seg Neutrophils # Seg Neutrophils # Man Lymphocytes # (Manual) APTT POC ABG pH ABG pH POC ABG pCO2 POC ABG pO2 ABG pO2 ABG HCO3 ABG Base Excess ABG Hemoglobin VBG pH Oxyhemoglobin Sodium Potassium Chloride Carbon Dioxide BUN Creatinine Glucose POC Glucose 242 H < 40 L < 40 L Lactic Acid Calcium AST ALT Alkaline Phosphatase CK-MB (CK-2) CK-MB (CK-2) Rel Index Total Protein Albumin TSH Urine WBC (Auto) Salicylates 05/07/17 05/08/17 05/09/17 22:41 06:14 00:02 WBC RBC Hgb Hct MCV MCH RDW Plt Count Lymph % (Auto) [place] % (Auto) Eos % (Auto) [place] # Seg Neutrophils % Seg Neuts % (Manual) Lymphocytes % (Manual) Seg Neutrophils # Seg Neutrophils # Man Lymphocytes # (Manual) APTT POC ABG pH ABG pH POC ABG pCO2 POC ABG pO2 ABG pO2 ABG HCO3 ABG Base Excess ABG Hemoglobin VBG pH Oxyhemoglobin Sodium Potassium Chloride Carbon Dioxide BUN Creatinine Glucose POC Glucose 183 H 329 H 130 H Lactic Acid Calcium AST ALT Alkaline Phosphatase CK-MB (CK-2) CK-MB (CK-2) Rel Index Total Protein Albumin TSH Urine WBC (Auto) Salicylates 05/09/17 05/09/17 05/09/17 06:08 14:06 21:44 WBC RBC Hgb Hct MCV MCH RDW Plt Count Lymph % (Auto) [place] % (Auto) Eos % (Auto) [place] # Seg Neutrophils % Seg Neuts % (Manual) Lymphocytes % (Manual) Seg Neutrophils # Seg Neutrophils # Man Lymphocytes # (Manual) APTT POC ABG pH ABG pH POC ABG pCO2 POC ABG pO2 ABG pO2 ABG HCO3 ABG Base Excess ABG Hemoglobin VBG pH Oxyhemoglobin Sodium Potassium Chloride Carbon Dioxide BUN Creatinine Glucose POC Glucose 241 H 251 H 198 H Lactic Acid Calcium AST ALT Alkaline Phosphatase CK-MB (CK-2) CK-MB (CK-2) Rel Index Total Protein Albumin TSH Urine WBC (Auto) Salicylates 05/10/17 05/10/17 05/10/17 05:18 14:44 21:53 WBC RBC Hgb Hct MCV MCH RDW Plt Count Lymph % (Auto) [place] % (Auto) Eos % (Auto) [place] # Seg Neutrophils % Seg Neuts % (Manual) Lymphocytes % (Manual) Seg Neutrophils # Seg Neutrophils # Man Lymphocytes # (Manual) APTT POC ABG pH ABG pH POC ABG pCO2 POC ABG pO2 ABG pO2 ABG HCO3 ABG Base Excess ABG Hemoglobin VBG pH Oxyhemoglobin Sodium Potassium Chloride Carbon Dioxide BUN Creatinine Glucose POC Glucose 166 H 224 H 171 H Lactic Acid Calcium AST ALT Alkaline Phosphatase CK-MB (CK-2) CK-MB (CK-2) Rel Index Total Protein Albumin TSH Urine WBC (Auto) Salicylates 05/11/17 05/11/17 05/11/17 05:45 13:44 21:42 WBC RBC Hgb Hct MCV MCH RDW Plt Count Lymph % (Auto) [place] % (Auto) Eos % (Auto) [place] # Seg Neutrophils % Seg Neuts % (Manual) Lymphocytes % (Manual) Seg Neutrophils # Seg Neutrophils # Man Lymphocytes # (Manual) APTT POC ABG pH ABG pH POC ABG pCO2 POC ABG pO2 ABG pO2 ABG HCO3 ABG Base Excess ABG Hemoglobin VBG pH Oxyhemoglobin Sodium Potassium Chloride Carbon Dioxide BUN Creatinine Glucose POC Glucose 199 H 150 H 163 H Lactic Acid Calcium AST ALT Alkaline Phosphatase CK-MB (CK-2) CK-MB (CK-2) Rel Index Total Protein Albumin TSH Urine WBC (Auto) Salicylates 05/12/17 05/12/17 05/12/17 06:03 13:59 21:22 WBC RBC Hgb Hct MCV MCH RDW Plt Count Lymph % (Auto) [place] % (Auto) Eos % (Auto) [place] # Seg Neutrophils % Seg Neuts % (Manual) Lymphocytes % (Manual) Seg Neutrophils # Seg Neutrophils # Man Lymphocytes # (Manual) APTT POC ABG pH ABG pH POC ABG pCO2 POC ABG pO2 ABG pO2 ABG HCO3 ABG Base Excess ABG Hemoglobin VBG pH Oxyhemoglobin Sodium Potassium Chloride Carbon Dioxide BUN Creatinine Glucose POC Glucose 147 H 243 H 116 H Lactic Acid Calcium AST ALT Alkaline Phosphatase CK-MB (CK-2) CK-MB (CK-2) Rel Index Total Protein Albumin TSH Urine WBC (Auto) Salicylates 05/13/17 05/13/17 05/13/17 05:28 13:49 21:29 WBC RBC Hgb Hct MCV MCH RDW Plt Count Lymph % (Auto) [place] % (Auto) Eos % (Auto) [place] # Seg Neutrophils % Seg Neuts % (Manual) Lymphocytes % (Manual) Seg Neutrophils # Seg Neutrophils # Man Lymphocytes # (Manual) APTT POC ABG pH ABG pH POC ABG pCO2 POC ABG pO2 ABG pO2 ABG HCO3 ABG Base Excess ABG Hemoglobin VBG pH Oxyhemoglobin Sodium Potassium Chloride Carbon Dioxide BUN Creatinine Glucose POC Glucose 213 H 224 H 379 H Lactic Acid Calcium AST ALT Alkaline Phosphatase CK-MB (CK-2) CK-MB (CK-2) Rel Index Total Protein Albumin TSH Urine WBC (Auto) Salicylates 05/14/17 05/14/17 05/14/17 05:17 13:35 21:23 WBC RBC Hgb Hct MCV MCH RDW Plt Count Lymph % (Auto) [place] % (Auto) Eos % (Auto) [place] # Seg Neutrophils % Seg Neuts % (Manual) Lymphocytes % (Manual) Seg Neutrophils # Seg Neutrophils # Man Lymphocytes # (Manual) APTT POC ABG pH ABG pH POC ABG pCO2 POC ABG pO2 ABG pO2 ABG HCO3 ABG Base Excess ABG Hemoglobin VBG pH Oxyhemoglobin Sodium Potassium Chloride Carbon Dioxide BUN Creatinine Glucose POC Glucose 234 H 242 H 218 H Lactic Acid Calcium AST ALT Alkaline Phosphatase CK-MB (CK-2) CK-MB (CK-2) Rel Index Total Protein Albumin TSH Urine WBC (Auto) Salicylates 05/15/17 05/15/17 05/16/17 04:58 13:53 01:34 WBC RBC Hgb Hct MCV MCH RDW Plt Count Lymph % (Auto) [place] % (Auto) Eos % (Auto) [place] # Seg Neutrophils % Seg Neuts % (Manual) Lymphocytes % (Manual) Seg Neutrophils # Seg Neutrophils # Man Lymphocytes # (Manual) APTT POC ABG pH ABG pH POC ABG pCO2 POC ABG pO2 ABG pO2 ABG HCO3 ABG Base Excess ABG Hemoglobin VBG pH Oxyhemoglobin Sodium Potassium Chloride Carbon Dioxide BUN Creatinine Glucose POC Glucose 310 H 193 H 263 H Lactic Acid Calcium AST ALT Alkaline Phosphatase CK-MB (CK-2) CK-MB (CK-2) Rel Index Total Protein Albumin TSH Urine WBC (Auto) Salicylates 05/16/17 05/16/17 05/16/17 06:03 14:36 21:59 WBC RBC Hgb Hct MCV MCH RDW Plt Count Lymph % (Auto) [place] % (Auto) Eos % (Auto) [place] # Seg Neutrophils % Seg Neuts % (Manual) Lymphocytes % (Manual) Seg Neutrophils # Seg Neutrophils # Man Lymphocytes # (Manual) APTT POC ABG pH ABG pH POC ABG pCO2 POC ABG pO2 ABG pO2 ABG HCO3 ABG Base Excess ABG Hemoglobin VBG pH Oxyhemoglobin Sodium Potassium Chloride Carbon Dioxide BUN Creatinine Glucose POC Glucose 330 H 272 H 198 H Lactic Acid Calcium AST ALT Alkaline Phosphatase CK-MB (CK-2) CK-MB (CK-2) Rel Index Total Protein Albumin TSH Urine WBC (Auto) Salicylates 05/17/17 05/17/17 05/18/17 05:48 13:59 05:27 WBC RBC Hgb Hct MCV MCH RDW Plt Count Lymph % (Auto) [place] % (Auto) Eos % (Auto) [place] # Seg Neutrophils % Seg Neuts % (Manual) Lymphocytes % (Manual) Seg Neutrophils # Seg Neutrophils # Man Lymphocytes # (Manual) APTT POC ABG pH ABG pH POC ABG pCO2 POC ABG pO2 ABG pO2 ABG HCO3 ABG Base Excess ABG Hemoglobin VBG pH Oxyhemoglobin Sodium Potassium Chloride Carbon Dioxide BUN Creatinine Glucose POC Glucose 204 H 229 H 152 H Lactic Acid Calcium AST ALT Alkaline Phosphatase CK-MB (CK-2) CK-MB (CK-2) Rel Index Total Protein Albumin TSH Urine WBC (Auto) Salicylates 05/18/17 05/18/17 05/19/17 14:16 21:27 04:59 WBC RBC Hgb Hct MCV MCH RDW Plt Count Lymph % (Auto) [place] % (Auto) Eos % (Auto) [place] # Seg Neutrophils % Seg Neuts % (Manual) Lymphocytes % (Manual) Seg Neutrophils # Seg Neutrophils # Man Lymphocytes # (Manual) APTT POC ABG pH ABG pH POC ABG pCO2 POC ABG pO2 ABG pO2 ABG HCO3 ABG Base Excess ABG Hemoglobin VBG pH Oxyhemoglobin Sodium Potassium Chloride Carbon Dioxide BUN Creatinine Glucose POC Glucose 217 H 202 H 131 H Lactic Acid Calcium AST ALT Alkaline Phosphatase CK-MB (CK-2) CK-MB (CK-2) Rel Index Total Protein Albumin TSH Urine WBC (Auto) Salicylates 05/19/17 05/20/17 05/20/17 14:57 00:11 05:45 WBC RBC Hgb Hct MCV MCH RDW Plt Count Lymph % (Auto) [place] % (Auto) Eos % (Auto) [place] # Seg Neutrophils % Seg Neuts % (Manual) Lymphocytes % (Manual) Seg Neutrophils # Seg Neutrophils # Man Lymphocytes # (Manual) APTT POC ABG pH ABG pH POC ABG pCO2 POC ABG pO2 ABG pO2 ABG HCO3 ABG Base Excess ABG Hemoglobin VBG pH Oxyhemoglobin Sodium Potassium Chloride Carbon Dioxide BUN Creatinine Glucose POC Glucose 216 H 197 H 195 H Lactic Acid Calcium AST ALT Alkaline Phosphatase CK-MB (CK-2) CK-MB (CK-2) Rel Index Total Protein Albumin TSH Urine WBC (Auto) Salicylates 05/20/17 05/20/17 05/21/17 13:29 22:11 05:43 WBC RBC Hgb Hct MCV MCH RDW Plt Count Lymph % (Auto) [place] % (Auto) Eos % (Auto) [place] # Seg Neutrophils % Seg Neuts % (Manual) Lymphocytes % (Manual) Seg Neutrophils # Seg Neutrophils # Man Lymphocytes # (Manual) APTT POC ABG pH ABG pH POC ABG pCO2 POC ABG pO2 ABG pO2 ABG HCO3 ABG Base Excess ABG Hemoglobin VBG pH Oxyhemoglobin Sodium Potassium Chloride Carbon Dioxide BUN Creatinine Glucose POC Glucose 138 H 242 H 228 H Lactic Acid Calcium AST ALT Alkaline Phosphatase CK-MB (CK-2) CK-MB (CK-2) Rel Index Total Protein Albumin TSH Urine WBC (Auto) Salicylates 05/21/17 05/21/17 05/22/17 14:06 21:49 05:31 WBC RBC Hgb Hct MCV MCH RDW Plt Count Lymph % (Auto) [place] % (Auto) Eos % (Auto) [place] # Seg Neutrophils % Seg Neuts % (Manual) Lymphocytes % (Manual) Seg Neutrophils # Seg Neutrophils # Man Lymphocytes # (Manual) APTT POC ABG pH ABG pH POC ABG pCO2 POC ABG pO2 ABG pO2 ABG HCO3 ABG Base Excess ABG Hemoglobin VBG pH Oxyhemoglobin Sodium Potassium Chloride Carbon Dioxide BUN Creatinine Glucose POC Glucose 191 H 166 H 184 H Lactic Acid Calcium AST ALT Alkaline Phosphatase CK-MB (CK-2) CK-MB (CK-2) Rel Index Total Protein Albumin TSH Urine WBC (Auto) Salicylates 05/22/17 05/22/17 05/23/17 14:03 21:45 05:41 WBC RBC Hgb Hct MCV MCH RDW Plt Count Lymph % (Auto) [place] % (Auto) Eos % (Auto) [place] # Seg Neutrophils % Seg Neuts % (Manual) Lymphocytes % (Manual) Seg Neutrophils # Seg Neutrophils # Man Lymphocytes # (Manual) APTT POC ABG pH ABG pH POC ABG pCO2 POC ABG pO2 ABG pO2 ABG HCO3 ABG Base Excess ABG Hemoglobin VBG pH Oxyhemoglobin Sodium Potassium Chloride Carbon Dioxide BUN Creatinine Glucose POC Glucose 206 H 178 H 206 H Lactic Acid Calcium AST ALT Alkaline Phosphatase CK-MB (CK-2) CK-MB (CK-2) Rel Index Total Protein Albumin TSH Urine WBC (Auto) Salicylates 05/23/17 05/23/17 05/24/17 14:09 22:48 05:21 WBC RBC Hgb Hct MCV MCH RDW Plt Count Lymph % (Auto) [place] % (Auto) Eos % (Auto) [place] # Seg Neutrophils % Seg Neuts % (Manual) Lymphocytes % (Manual) Seg Neutrophils # Seg Neutrophils # Man Lymphocytes # (Manual) APTT POC ABG pH ABG pH POC ABG pCO2 POC ABG pO2 ABG pO2 ABG HCO3 ABG Base Excess ABG Hemoglobin VBG pH Oxyhemoglobin Sodium Potassium Chloride Carbon Dioxide BUN Creatinine Glucose POC Glucose 148 H 181 H 162 H Lactic Acid Calcium AST ALT Alkaline Phosphatase CK-MB (CK-2) CK-MB (CK-2) Rel Index Total Protein Albumin TSH Urine WBC (Auto) Salicylates 05/24/17 05/24/17 05/25/17 13:32 21:55 06:49 WBC RBC Hgb Hct MCV MCH RDW Plt Count Lymph % (Auto) [place] % (Auto) Eos % (Auto) [place] # Seg Neutrophils % Seg Neuts % (Manual) Lymphocytes % (Manual) Seg Neutrophils # Seg Neutrophils # Man Lymphocytes # (Manual) APTT POC ABG pH ABG pH POC ABG pCO2 POC ABG pO2 ABG pO2 ABG HCO3 ABG Base Excess ABG Hemoglobin VBG pH Oxyhemoglobin Sodium Potassium Chloride Carbon Dioxide BUN Creatinine Glucose POC Glucose 216 H 144 H 151 H Lactic Acid Calcium AST ALT Alkaline Phosphatase CK-MB (CK-2) CK-MB (CK-2) Rel Index Total Protein Albumin TSH Urine WBC (Auto) Salicylates
[2017-05-25] MEDS: PEPCID PO SCH ×2 (10:00→22:22)
[2017-05-25] MEDS: HEPARIN SUB-Q SCH ×2 (10:00→22:22)
--- NOTE | 2017-05-25 18:39 | Progress Note ---
Assessment and Plan Assessment and plan: 51 YO Male with CKD, HTN, DM presents to ED after found down and unresponsive by his neighbor, who subsequently called EMS. Upon arrival, patient found unresponsive on the floor with a serum glucose of 21, patient has a known history of alcohol abuse and delirium tremens. The patient was administered D5 approximate 500 mls during transport without change in mental status/level of consciousness. Pt seen and evaluated in ED was was found to be unable to protect his airway. Pt intubated and placed on vent support. Pt found to have evidence of hypothyroidism. He was started on Synthroid. He has since been in the ICU. director of child welfare services try to locate family, even spoke to the family who he lives with. They themselves were unaware of any family members. After ethics committee meeting on the patient. The decision was made to make him DO NOT RESUSCITATE and to transfer him to hospice. Given his very poor prognosis and poor likelihood of recovery. It was decided that was not his best interest to get trach and PEG. Therefore he'll be transferred to the hospice intubated. Now Awaiting on court ordered /state guardianship. Hypoglycemic brain injury Persistent vegetative state Metabolic encephalopathy Hypoglycemia/hypothermia, resolved Acute respiratory failure mechanical ventilator greater than 96 hours UTI with klebsiella, treated ( Cx + on 01/28), then with ESBL likely colonization hyponatremia, Hypothyroidism IDDM Hypertension low grade Fever, resolved - Cont supportive care and current medication. Monitor vitals, repeat cx on - no growth - increased dose of long acting insulin to 15 unit - Patient is DNR- needs guardianship from the state to give consent for further management, as has no family to give consent. 05/24/17: Resume care, Guardianship has been obtained but no authority to withdraw care. Continue supportative care. History Interval history: Patient was seen and examined. Follow-up on current diagnosis. Imaging, nursing note, chart, labs and old chart reviewed. Patient remains intubated Hospitalist Physical - Physical exam Narrative exam: GEN: Severely fail contracted BMI 16.5, comatose HEENT: NCAT, NG tube and ET tube in place CVS/HEART: RRR, NORMAL S1S2, NO JVD, pulses present bilaterally CHEST/LUNGS: Symmetrical chest expansion, good air entry bilaterally GI/Abdomen: soft, ND, good bowel sounds, no guarding or rebound Neuro: comatose, doesn't follow commands Psych: Unresponsive - Constitutional Vitals: Temp Pulse Resp BP Pulse Ox 97.3 F L 67 12 106/69 100 05/25/17 14:00 05/25/17 16:00 05/25/17 14:00 05/25/17 16:00 05/25/17 16:00 General appearance: Present: no acute distress Results - Labs CBC & Chem 7: 04/28/17 05:10 04/28/17 05:10 Labs: Laboratory Last Values WBC 9.3 K/mm3 (4.5-11.0) 04/28/17 05:10 RBC 3.48 M/mm3 (3.65-5.03) L 04/28/17 05:10 Hgb 8.8 gm/dl (11.8-15.2) L 04/28/17 05:10 Hct 26.7 % (35.5-45.6) L 04/28/17 05:10 MCV 77 fl (84-94) L 04/28/17 05:10 MCH 25 pg (28-32) L 04/28/17 05:10 MCHC 33 % (32-34) 04/28/17 05:10 RDW 17.0 % (13.2-15.2) H 04/28/17 05:10 Plt Count 515 K/mm3 (140-440) H 04/28/17 05:10 Lymph % (Auto) 18.4 % (13.4-35.0) 04/28/17 05:10 [place] % (Auto) 8.4 % (0.0-7.3) H 04/28/17 05:10 Eos % (Auto) 1.8 % (0.0-4.3) 04/28/17 05:10 Baso % (Auto) 0.8 % (0.0-1.8) 04/28/17 05:10 Lymph # 1.7 K/mm3 (1.2-5.4) 04/28/17 05:10 [place] # 0.8 K/mm3 (0.0-0.8) 04/28/17 05:10 Eos # 0.2 K/mm3 (0.0-0.4) 04/28/17 05:10 Baso # 0.1 K/mm3 (0.0-0.1) 04/28/17 05:10 Add Manual Diff Complete 01/10/17 04:30 Total Counted 100 01/10/17 04:30 Seg Neutrophils % 70.6 % (40.0-70.0) H 04/28/17 05:10 Seg Neuts % (Manual) 88.0 % (40.0-70.0) H 01/10/17 04:30 Band Neutrophils % 7.0 % 01/10/17 04:30 Lymphocytes % (Manual) 4.0 % (13.4-35.0) L 01/10/17 04:30 Reactive Lymphs % (Man) 0 % 01/10/17 04:30 Monocytes % (Manual) 1.0 % (0.0-7.3) 01/10/17 04:30 Eosinophils % (Manual) 0 % (0.0-4.3) 01/10/17 04:30 Basophils % (Manual) 0 % (0.0-1.8) 01/10/17 04:30 Metamyelocytes % 0 % 01/10/17 04:30 Myelocytes % 0 % 01/10/17 04:30 Promyelocytes % 0 % 01/10/17 04:30 Blast Cells % 0 % 01/10/17 04:30 Nucleated RBC % Not Reportable 01/10/17 04:30 Seg Neutrophils # 6.6 K/mm3 (1.8-7.7) 04/28/17 05:10 Seg Neutrophils # Man 21.2 K/mm3 (1.8-7.7) H 01/10/17 04:30 Band Neutrophils # 1.7 K/mm3 01/10/17 04:30 Lymphocytes # (Manual) 1.0 K/mm3 (1.2-5.4) L 01/10/17 04:30 Abs React Lymphs (Man) 0.0 K/mm3 01/10/17 04:30 Monocytes # (Manual) 0.2 K/mm3 (0.0-0.8) 01/10/17 04:30 Eosinophils # (Manual) 0.0 K/mm3 (0.0-0.4) 01/10/17 04:30 Basophils # (Manual) 0.0 K/mm3 (0.0-0.1) 01/10/17 04:30 Metamyelocytes # 0.0 K/mm3 01/10/17 04:30 Myelocytes # 0.0 K/mm3 01/10/17 04:30 Promyelocytes # 0.0 K/mm3 01/10/17 04:30 Blast Cells # 0.0 K/mm3 01/10/17 04:30 WBC Morphology Not Reportable 01/10/17 04:30 Hypersegmented Neuts Not Reportable 01/10/17 04:30 Hyposegmented Neuts Not Reportable 01/10/17 04:30 Hypogranular Neuts Not Reportable 01/10/17 04:30 Smudge Cells Not Reportable 01/10/17 04:30 Toxic Granulation Not Reportable 01/10/17 04:30 Toxic Vacuolation Not Reportable 01/10/17 04:30 Dohle Bodies Not Reportable 01/10/17 04:30 Pelger-Huet Anomaly Not Reportable 01/10/17 04:30 [place] Rods Not Reportable 01/10/17 04:30 Platelet Estimate Consistent w auto 01/10/17 04:30 Clumped Platelets Not Reportable 01/10/17 04:30 Plt Clumps, EDTA Not Reportable 01/10/17 04:30 Large Platelets Not Reportable 01/10/17 04:30 Giant Platelets Not Reportable 01/10/17 04:30 Platelet Satelliting Not Reportable 01/10/17 04:30 Plt Morphology Comment Not Reportable 01/10/17 04:30 RBC Morphology Not Reportable 01/10/17 04:30 Dimorphic RBCs Not Reportable 01/10/17 04:30 Polychromasia Not Reportable 01/10/17 04:30 Hypochromasia 1+ 01/10/17 04:30 Poikilocytosis Not Reportable 01/10/17 04:30 Anisocytosis Not Reportable 01/10/17 04:30 Microcytosis Not Reportable 01/10/17 04:30 Macrocytosis Not Reportable 01/10/17 04:30 Spherocytes Not Reportable 01/10/17 04:30 Pappenheimer Bodies Not Reportable 01/10/17 04:30 Sickle Cells Not Reportable 01/10/17 04:30 Target Cells Not Reportable 01/10/17 04:30 Tear Drop Cells Not Reportable 01/10/17 04:30 Ovalocytes Not Reportable 01/10/17 04:30 Helmet Cells Not Reportable 01/10/17 04:30 [place] Bodies Not Reportable 01/10/17 04:30 [place] Rings Not Reportable 01/10/17 04:30 [place] Cells Not Reportable 01/10/17 04:30 Bite Cells Not Reportable 01/10/17 04:30 Crenated Cell Not Reportable 01/10/17 04:30 Elliptocytes Not Reportable 01/10/17 04:30 Acanthocytes (Spur) Not Reportable 01/10/17 04:30 Rouleaux Not Reportable 01/10/17 04:30 Hemoglobin C Crystals Not Reportable 01/10/17 04:30 Schistocytes Not Reportable 01/10/17 04:30 Malaria parasites Not Reportable 01/10/17 04:30 Kyle Bodies Not Reportable 01/10/17 04:30 Hem Pathologist Commnt No 01/10/17 04:30 PT 14.1 Sec. (12.2-14.9) 01/17/17 04:10 INR 1.04 (0.87-1.13) 01/17/17 04:10 APTT 36.6 Sec. (24.2-36.6) 01/17/17 04:10 POC ABG pH 7.442 (7.35-7.45) 01/31/17 18:55 ABG pH 7.420 pH Units (7.350-7.450) 01/17/17 04:35 POC ABG pCO2 32.8 (35-45) L 01/31/17 18:55 ABG pCO2 34.5 mm Hg 01/17/17 04:35 POC ABG pO2 82 (80-105) 01/31/17 18:55 ABG pO2 160.3 mm Hg (80.0-90.0) H 01/17/17 04:35 POC ABG HCO3 22.4 01/31/17 18:55 ABG HCO3 21.9 mmol/L (20.0-26.0) 01/17/17 04:35 POC ABG Total CO2 23 01/31/17 18:55 POC ABG O2 Sat 97 01/31/17 18:55 ABG O2 Saturation 99.0 % (95.0-99.0) 01/17/17 04:35 ABG O2 Content 11.1 (0.0-44) 01/17/17 04:35 POC ABG Base Excess -2 01/31/17 18:55 ABG Base Excess -2.3 mmol/L (-2.0-3.0) L 01/17/17 04:35 ABG Hemoglobin 7.9 gm/dl (14.0-18.0) L 01/17/17 04:35 ABG Carboxyhemoglobin 1.5 % (0.0-5.0) 01/17/17 04:35 ABG Methemoglobin 0.5 % (0.0-1.5) 01/17/17 04:35 VBG pH 7.284 (7.320-7.420) L 01/09/17 10:16 Oxyhemoglobin 97.1 % (95.0-99.0) 01/17/17 04:35 FiO2 25 % 01/31/17 18:55 Sodium 136 mmol/L (137-145) L 04/28/17 05:10 Potassium 4.5 mmol/L (3.6-5.0) 04/28/17 05:10 Chloride 95.2 mmol/L (98-107) L 04/28/17 05:10 Carbon Dioxide 27 mmol/L (22-30) 04/28/17 05:10 Anion Gap 18 mmol/L 04/28/17 05:10 BUN 42 mg/dL (9-20) H 04/28/17 05:10 Creatinine 0.9 mg/dL (0.8-1.5) 04/28/17 05:10 Estimated GFR > 60 ml/min 04/28/17 05:10 BUN/Creatinine Ratio 47 % 04/28/17 05:10 Glucose 63 mg/dL (75-100) L 04/28/17 05:10 POC Glucose 136 (70-105) H 05/25/17 15:32 Lactic Acid 0.80 mmol/L (0.7-2.0) 01/30/17 11:49 Calcium 9.1 mg/dL (8.4-10.2) 04/28/17 05:10 Phosphorus 3.10 mg/dL (2.5-4.5) 03/29/17 04:32 Magnesium 1.90 mg/dL (1.7-2.3) 03/29/17 04:32 Total Bilirubin 0.50 mg/dL (0.1-1.2) 04/28/17 05:10 AST 45 units/L (5-40) H 04/28/17 05:10 ALT 42 units/L (7-56) 04/28/17 05:10 Alkaline Phosphatase 271 units/L (35-129) H 04/28/17 05:10 Ammonia 35.0 umol/L (25-60) 01/09/17 10:16 Total Creatine Kinase 135 units/L (55-170) 01/09/17 10:16 CK-MB (CK-2) 7.1 ng/mL (0.0-4.0) H 01/09/17 10:16 CK-MB (CK-2) Rel Index 5.2 (0-4) H 01/09/17 10:16 Troponin T < 0.010 ng/mL (0.00-0.029) 01/09/17 10:16 NT-Pro-B Natriuret Pep 602.9 pg/mL (0-900) 01/09/17 10:16 Total Protein 8.9 g/dL (6.3-8.2) H 04/28/17 05:10 Albumin 2.5 g/dL (3.9-5) L 04/28/17 05:10 Albumin/Globulin Ratio 0.4 % 04/28/17 05:10 TSH 52.800 mlU/mL (0.270-4.200) H 01/09/17 10:16 Free T4 0.78 ng/dL (0.76-1.46) 01/09/17 10:16 Total Cortisol 54.8 mcg/dL () 01/09/17 16:19 Urine Color Yellow (Yellow) 01/28/17 17:52 Urine Turbidity Clear (Clear) 01/28/17 17:52 Urine pH 6.0 (5.0-7.0) 01/28/17 17:52 Ur Specific [place] 1.016 (1.003-1.030) 01/28/17 17:52 Urine Protein 100 mg/dl mg/dL (Negative) 01/28/17 17:52 Urine Glucose (UA) >=500 mg/dL (Negative) 01/28/17 17:52 Urine Ketones Neg mg/dL (Negative) 01/28/17 17:52 Urine Blood Sm (Negative) 01/28/17 17:52 Urine Nitrite Neg (Negative) 01/28/17 17:52 Urine Bilirubin Neg (Negative) 01/28/17 17:52 Urine Urobilinogen < 2.0 mg/dL (<2.0) 01/28/17 17:52 Ur Leukocyte Esterase Lg (Negative) 01/28/17 17:52 Urine WBC (Auto) > 182.0 /HPF (0.0-6.0) H 01/28/17 17:52 Urine RBC (Auto) 113.0 /HPF (0.0-6.0) 01/28/17 17:52 Urine Bacteria (Auto) 2+ /HPF (Negative) 01/28/17 17:52 Urine WBC Clumps 3+ /HPF 01/28/17 17:52 Urine Mucus Few /HPF 01/14/17 14:07 Urine Yeast (Budding) 3+ /HPF 01/14/17 14:07 Salicylates < 0.3 mg/dL (2.8-20.0) L 01/09/17 10:16 Urine Opiates Screen Presumptive negative 01/09/17 10:23 Urine Methadone Screen Presumptive negative 01/09/17 10:23 Acetaminophen < 15.0 ug/mL (10.0-30.0) 01/09/17 10:16 Ur Barbiturates Screen Presumptive negative 01/09/17 10:23 Ur Phencyclidine Scrn Presumptive negative 01/09/17 10:23 Ur Amphetamines Screen Presumptive negative 01/09/17 10:23 U Benzodiazepines Scrn Presumptive negative 01/09/17 10:23 Urine Cocaine Screen Presumptive negative 01/09/17 10:23 U Marijuana (THC) Screen Presumptive negative 01/09/17 10:23 Drugs of Abuse Note Disclamer 01/09/17 10:23 Plasma/Serum Alcohol < 0.01 gm% (0-0.07) 01/09/17 10:16
[2017-05-26] MEDS: HumuLIN R SUB-Q SCH ×4 (06:31→14:17)
[2017-05-26] MEDS: LEVEMIR (NF) SUB-Q SCH (08:28)
[2017-05-26] MEDS: PEPCID PO SCH (10:57)
[2017-05-26] MEDS: HEPARIN SUB-Q SCH ×2 (10:57→22:58)
[2017-05-27] MEDS: HumuLIN R SUB-Q SCH ×3 (06:25→16:34)
[2017-05-27] MEDS: PEPCID PO SCH ×3 (06:27→21:48)
--- NOTE | 2017-05-27 09:20 | Progress Note ---
Assessment and Plan 51 y/o male found down, concern for sepsis and now encephalopathic requiring mechanical ventilation. Unfortunately no new recommendations in this sad case. 1. continue supportive care 2. 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 I am aware that he is an AND but trach will not fix this problem and is not in my professional opinion the right thing to do for this patient. Most likely he will never be weaned from the vent and will remain in a persistent vegatative state. 3. Overall prognosis continues to be poor. 4. Will not check labs 5. Vitals should be qshift 6. This patient's possibility of awakening from this persistent vegatative is unlikely. The current status is that there has been paper work filed to obtain guardianship so that end of life decisions can be made. Supportive care is reasonable but checking daily labs and doing other invasive things to this patient I do not feel is morally and ethically appropriate. 7. Currently patient does not have IV access and is not requiring any medical therapy. Will not place another one at this time. 8. Per [place], went to court 05/03/17 for Guardianship. One has been appointed, awaiting to meet them. Per report, they agree with hospice care, but do not have the authority vs will not authorize withdrawal once at hospice. Subjective Date of service: 05/27/17 Principal diagnosis: Acute respiratory failure,encephalopathy Interval history: No acute events. Mental status is unchanged. Still not tolerating PSV consistently as he has periods of apnea Objective Vital Signs - 12hr 05/26/17 05/26/17 05/26/17 22:00 22:01 23:05 Temperature 98.0 F Pulse Rate 68 73 72 Respiratory 15 15 Rate Blood Pressure 119/78 119/78 O2 Sat by Pulse 100 100 100 Oximetry 05/27/17 05/27/17 05/27/17 00:00 02:01 03:11 Temperature Pulse Rate 69 72 67 Respiratory 13 14 Rate Blood Pressure 103/66 103/66 103/66 O2 Sat by Pulse 96 96 100 Oximetry 05/27/17 05/27/17 05/27/17 04:01 06:00 06:01 Temperature 97.9 F Pulse Rate 71 68 Respiratory 14 12 Rate Blood Pressure 103/66 103/66 O2 Sat by Pulse 100 100 Oximetry 05/27/17 07:38 Temperature 97.5 F L Pulse Rate Respiratory Rate Blood Pressure O2 Sat by Pulse Oximetry Constitutional: no acute distress, other (on vent) Eyes: non-icteric ENT: oropharynx moist, other (ETT in position) Neck: supple Effort: normal Ascultation: Bilateral: clear, diminished breath sounds Cardiovascular: regular rate and rhythm (no mrg) Gastrointestinal: normoactive bowel sounds, soft, non-tender, non-distended Integumentary: normal Extremities: no cyanosis, no edema, pink and warm Neurologic: pupils equal and round, other (opens eyes spontaneously, but no meaningful responce to stimuli) Psychiatric: other (unable to obtain) CBC and BMP: 04/28/17 05:10 04/28/17 05:10 ABG, PT/INR, D-dimer: ABG POC ABG pH 7.442 (7.35-7.45) 01/31/17 18:55 ABG pH 7.420 pH Units (7.350-7.450) 01/17/17 04:35 POC ABG pCO2 32.8 (35-45) L 01/31/17 18:55 ABG pCO2 34.5 mm Hg 01/17/17 04:35 POC ABG pO2 82 (80-105) 01/31/17 18:55 ABG pO2 160.3 mm Hg (80.0-90.0) H 01/17/17 04:35 POC ABG HCO3 22.4 01/31/17 18:55 POC ABG Total CO2 23 01/31/17 18:55 POC ABG O2 Sat 97 01/31/17 18:55 ABG O2 Saturation 99.0 % (95.0-99.0) 01/17/17 04:35 PT/INR, D-dimer PT 14.1 Sec. (12.2-14.9) 01/17/17 04:10 INR 1.04 (0.87-1.13) 01/17/17 04:10 Abnormal lab findings: Abnormal Labs 01/09/17 01/09/17 01/09/17 10:16 10:16 10:16 WBC RBC Hgb 9.7 L Hct 28.4 L MCV 76 L MCH 26 L RDW 17.2 H Plt Count 448 H Lymph % (Auto) [place] % (Auto) Eos % (Auto) [place] # Seg Neutrophils % 79.5 H Seg Neuts % (Manual) Lymphocytes % (Manual) Seg Neutrophils # Seg Neutrophils # Man Lymphocytes # (Manual) APTT 39.6 H POC ABG pH ABG pH POC ABG pCO2 POC ABG pO2 ABG pO2 ABG HCO3 ABG Base Excess ABG Hemoglobin VBG pH Oxyhemoglobin Sodium 132 L Potassium Chloride 96.7 L Carbon Dioxide 21 L BUN 34 H Creatinine Glucose POC Glucose Lactic Acid Calcium 8.3 L AST ALT Alkaline Phosphatase 151 H CK-MB (CK-2) 7.1 H CK-MB (CK-2) Rel Index 5.2 H Total Protein Albumin 3.3 L TSH Urine WBC (Auto) Salicylates 01/09/17 01/09/17 01/09/17 10:16 10:16 10:16 WBC RBC Hgb Hct MCV MCH RDW Plt Count Lymph % (Auto) [place] % (Auto) Eos % (Auto) [place] # Seg Neutrophils % Seg Neuts % (Manual) Lymphocytes % (Manual) Seg Neutrophils # Seg Neutrophils # Man Lymphocytes # (Manual) APTT POC ABG pH ABG pH POC ABG pCO2 POC ABG pO2 ABG pO2 ABG HCO3 ABG Base Excess ABG Hemoglobin VBG pH 7.284 L Oxyhemoglobin Sodium Potassium Chloride Carbon Dioxide BUN Creatinine Glucose POC Glucose Lactic Acid Calcium AST ALT Alkaline Phosphatase CK-MB (CK-2) CK-MB (CK-2) Rel Index Total Protein Albumin TSH 52.800 H Urine WBC (Auto) Salicylates < 0.3 L 01/09/17 01/09/17 01/09/17 10:23 11:14 12:49 WBC RBC Hgb Hct MCV MCH RDW Plt Count Lymph % (Auto) [place] % (Auto) Eos % (Auto) [place] # Seg Neutrophils % Seg Neuts % (Manual) Lymphocytes % (Manual) Seg Neutrophils # Seg Neutrophils # Man Lymphocytes # (Manual) APTT POC ABG pH ABG pH POC ABG pCO2 POC ABG pO2 643 H ABG pO2 ABG HCO3 ABG Base Excess ABG Hemoglobin VBG pH Oxyhemoglobin Sodium Potassium Chloride Carbon Dioxide BUN Creatinine Glucose POC Glucose < 40 L Lactic Acid Calcium AST ALT Alkaline Phosphatase CK-MB (CK-2) CK-MB (CK-2) Rel Index Total Protein Albumin TSH Urine WBC (Auto) 61.0 H Salicylates 01/09/17 01/09/1701/09/17 13:13 14:21 15:09 WBC RBC Hgb Hct MCV MCH RDW Plt Count Lymph % (Auto) [place] % (Auto) Eos % (Auto) [place] # Seg Neutrophils % Seg Neuts % (Manual) Lymphocytes % (Manual) Seg Neutrophils # Seg Neutrophils # Man Lymphocytes # (Manual) APTT POC ABG pH ABG pH POC ABG pCO2 POC ABG pO2 ABG pO2 ABG HCO3 ABG Base Excess ABG Hemoglobin VBG pH Oxyhemoglobin Sodium Potassium Chloride Carbon Dioxide BUN Creatinine Glucose POC Glucose 128 H 65 L 120 H Lactic Acid Calcium AST ALT Alkaline Phosphatase CK-MB (CK-2) CK-MB (CK-2) Rel Index Total Protein Albumin TSH Urine WBC (Auto) Salicylates 01/09/17 01/09/17 01/10/17 16:28 17:14 04:30 WBC 24.1 H RBC 3.38 L Hgb 8.5 L Hct 26.0 L MCV 77 L MCH 25 L RDW 17.9 H Plt Count 474 H Lymph % (Auto) [place] % (Auto) Eos % (Auto) [place] # Seg Neutrophils % Seg Neuts % (Manual) 88.0 H Lymphocytes % (Manual) 4.0 L Seg Neutrophils # Seg Neutrophils # Man 21.2 H Lymphocytes # (Manual) 1.0 L APTT POC ABG pH ABG pH POC ABG pCO2 POC ABG pO2 ABG pO2 ABG HCO3 ABG Base Excess ABG Hemoglobin VBG pH Oxyhemoglobin Sodium Potassium Chloride Carbon Dioxide BUN Creatinine Glucose POC Glucose 44 L 112 H Lactic Acid Calcium AST ALT Alkaline Phosphatase CK-MB (CK-2) CK-MB (CK-2) Rel Index Total Protein Albumin TSH Urine WBC (Auto) Salicylates 01/10/17 01/10/17 01/10/17 04:30 05:41 05:45 WBC RBC Hgb Hct MCV MCH RDW Plt Count Lymph % (Auto) [place] % (Auto) Eos % (Auto) [place] # Seg Neutrophils % Seg Neuts % (Manual) Lymphocytes % (Manual) Seg Neutrophils # Seg Neutrophils # Man Lymphocytes # (Manual) APTT POC ABG pH ABG pH POC ABG pCO2 26.6 L POC ABG pO2 207 H ABG pO2 ABG HCO3 ABG Base Excess ABG Hemoglobin VBG pH Oxyhemoglobin Sodium Potassium Chloride Carbon Dioxide 17 L BUN 27 H Creatinine Glucose POC Glucose 68 L Lactic Acid Calcium 7.5 L AST ALT Alkaline Phosphatase CK-MB (CK-2) CK-MB (CK-2) Rel Index Total Protein Albumin TSH Urine WBC (Auto) Salicylates 01/10/17 01/10/17 01/10/17 07:47 10:50 13:41 WBC RBC Hgb Hct MCV MCH RDW Plt Count Lymph % (Auto) [place] % (Auto) Eos % (Auto) [place] # Seg Neutrophils % Seg Neuts % (Manual) Lymphocytes % (Manual) Seg Neutrophils # Seg Neutrophils # Man Lymphocytes # (Manual) APTT POC ABG pH ABG pH POC ABG pCO2 POC ABG pO2 ABG pO2 ABG HCO3 ABG Base Excess ABG Hemoglobin VBG pH Oxyhemoglobin Sodium Potassium Chloride Carbon Dioxide BUN Creatinine Glucose POC Glucose 148 H 165 H 114 H Lactic Acid Calcium AST ALT Alkaline Phosphatase CK-MB (CK-2) CK-MB (CK-2) Rel Index Total Protein Albumin TSH Urine WBC (Auto) Salicylates 01/10/17 01/10/17 01/10/17 20:20 21:39 23:24 WBC RBC Hgb Hct MCV MCH RDW Plt Count Lymph % (Auto) [place] % (Auto) Eos % (Auto) [place] # Seg Neutrophils % Seg Neuts % (Manual) Lymphocytes % (Manual) Seg Neutrophils # Seg Neutrophils # Man Lymphocytes # (Manual) APTT POC ABG pH ABG pH POC ABG pCO2 POC ABG pO2 ABG pO2 ABG HCO3 ABG Base Excess ABG Hemoglobin VBG pH Oxyhemoglobin Sodium Potassium Chloride Carbon Dioxide BUN Creatinine Glucose POC Glucose 150 H 175 H 155 H Lactic Acid Calcium AST ALT Alkaline Phosphatase CK-MB (CK-2) CK-MB (CK-2) Rel Index Total Protein Albumin TSH Urine WBC (Auto) Salicylates 01/11/17 01/11/17 01/11/17 00:19 04:06 05:20 WBC 15.2 H RBC 3.40 L Hgb 8.9 L Hct 26.3 L MCV 78 L MCH 26 L RDW 18.6 H Plt Count 462 H Lymph % (Auto) 13.2 L [place] % (Auto) Eos % (Auto) [place] # Seg Neutrophils % 80.8 H Seg Neuts % (Manual) Lymphocytes % (Manual) Seg Neutrophils # 12.3 H Seg Neutrophils # Man Lymphocytes # (Manual) APTT POC ABG pH 7.463 H ABG pH POC ABG pCO2 26.2 L POC ABG pO2 185 H ABG pO2 ABG HCO3 ABG Base Excess ABG Hemoglobin VBG pH Oxyhemoglobin Sodium Potassium Chloride Carbon Dioxide BUN Creatinine Glucose POC Glucose 163 H Lactic Acid Calcium AST ALT Alkaline Phosphatase CK-MB (CK-2) CK-MB (CK-2) Rel Index Total Protein Albumin TSH Urine WBC (Auto) Salicylates 01/11/17 01/11/17 01/11/17 05:20 06:21 07:57 WBC RBC Hgb Hct MCV MCH RDW Plt Count Lymph % (Auto) [place] % (Auto) Eos % (Auto) [place] # Seg Neutrophils % Seg Neuts % (Manual) Lymphocytes % (Manual) Seg Neutrophils # Seg Neutrophils # Man Lymphocytes # (Manual) APTT POC ABG pH ABG pH POC ABG pCO2 POC ABG pO2 ABG pO2 ABG HCO3 ABG Base Excess ABG Hemoglobin VBG pH Oxyhemoglobin Sodium Potassium 3.4 L Chloride 111.5 H Carbon Dioxide 17 L BUN Creatinine Glucose 147 H POC Glucose 139 H 188 H Lactic Acid Calcium 8.0 L AST ALT Alkaline Phosphatase CK-MB (CK-2) CK-MB (CK-2) Rel Index Total Protein Albumin TSH Urine WBC (Auto) Salicylates 01/11/17 01/11/17 01/11/17 11:46 16:50 23:15 WBC RBC Hgb Hct MCV MCH RDW Plt Count Lymph % (Auto) [place] % (Auto) Eos % (Auto) [place] # Seg Neutrophils % Seg Neuts % (Manual) Lymphocytes % (Manual) Seg Neutrophils # Seg Neutrophils # Man Lymphocytes # (Manual) APTT POC ABG pH ABG pH POC ABG pCO2 POC ABG pO2 ABG pO2 ABG HCO3 ABG Base Excess ABG Hemoglobin VBG pH Oxyhemoglobin Sodium Potassium Chloride Carbon Dioxide BUN Creatinine Glucose POC Glucose 199 H 235 H 155 H Lactic Acid Calcium AST ALT Alkaline Phosphatase CK-MB (CK-2) CK-MB (CK-2) Rel Index Total Protein Albumin TSH Urine WBC (Auto) Salicylates 01/12/17 01/12/17 01/12/17 05:02 06:56 14:50 WBC RBC Hgb Hct MCV MCH RDW Plt Count Lymph % (Auto) [place] % (Auto) Eos % (Auto) [place] # Seg Neutrophils % Seg Neuts % (Manual) Lymphocytes % (Manual) Seg Neutrophils # Seg Neutrophils # Man Lymphocytes # (Manual) APTT POC ABG pH ABG pH POC ABG pCO2 28.0 L POC ABG pO2 178 H ABG pO2 ABG HCO3 ABG Base Excess ABG Hemoglobin VBG pH Oxyhemoglobin Sodium Potassium Chloride Carbon Dioxide BUN Creatinine Glucose POC Glucose 119 H 164 H Lactic Acid Calcium AST ALT Alkaline Phosphatase CK-MB (CK-2) CK-MB (CK-2) Rel Index Total Protein Albumin TSH Urine WBC (Auto) Salicylates 01/13/17 01/13/17 01/13/17 03:37 03:37 04:26 WBC RBC 3.61 L Hgb 9.3 L Hct 28.0 L MCV 78 L MCH 26 L RDW 18.2 H Plt Count Lymph % (Auto) [place] % (Auto) Eos % (Auto) [place] # Seg Neutrophils % Seg Neuts % (Manual) Lymphocytes % (Manual) Seg Neutrophils # Seg Neutrophils # Man Lymphocytes # (Manual) APTT POC ABG pH 7.485 H ABG pH POC ABG pCO2 25.4 L POC ABG pO2 73 L ABG pO2 ABG HCO3 ABG Base Excess ABG Hemoglobin VBG pH Oxyhemoglobin Sodium Potassium Chloride 112.4 H Carbon Dioxide 19 L BUN Creatinine Glucose 118 H POC Glucose Lactic Acid Calcium 8.0 L AST ALT Alkaline Phosphatase CK-MB (CK-2) CK-MB (CK-2) Rel Index Total Protein Albumin TSH Urine WBC (Auto) Salicylates 01/13/17 01/13/17 01/13/17 06:15 11:50 17:31 WBC RBC Hgb Hct MCV MCH RDW Plt Count Lymph % (Auto) [place] % (Auto) Eos % (Auto) [place] # Seg Neutrophils % Seg Neuts % (Manual) Lymphocytes % (Manual) Seg Neutrophils # Seg Neutrophils # Man Lymphocytes # (Manual) APTT POC ABG pH ABG pH POC ABG pCO2 POC ABG pO2 ABG pO2 ABG HCO3 ABG Base Excess ABG Hemoglobin VBG pH Oxyhemoglobin Sodium Potassium Chloride Carbon Dioxide BUN Creatinine Glucose POC Glucose 116 H 171 H 203 H Lactic Acid Calcium AST ALT Alkaline Phosphatase CK-MB (CK-2) CK-MB (CK-2) Rel Index Total Protein Albumin TSH Urine WBC (Auto) Salicylates 01/14/17 01/14/17 01/14/17 00:02 04:50 04:50 WBC RBC 3.32 L Hgb 8.5 L Hct 26.1 L MCV 79 L MCH 26 L RDW 18.2 H Plt Count Lymph % (Auto) [place] % (Auto) 9.0 H Eos % (Auto) [place] # Seg Neutrophils % Seg Neuts % (Manual) Lymphocytes % (Manual) Seg Neutrophils # Seg Neutrophils # Man Lymphocytes # (Manual) APTT POC ABG pH ABG pH POC ABG pCO2 POC ABG pO2 ABG pO2 ABG HCO3 ABG Base Excess ABG Hemoglobin VBG pH Oxyhemoglobin Sodium Potassium Chloride 112.5 H Carbon Dioxide BUN Creatinine Glucose 149 H POC Glucose 157 H Lactic Acid Calcium 8.1 L AST ALT Alkaline Phosphatase CK-MB (CK-2) CK-MB (CK-2) Rel Index Total Protein Albumin TSH Urine WBC (Auto) Salicylates 01/14/17 01/14/17 01/14/17 05:10 11:27 14:07 WBC RBC Hgb Hct MCV MCH RDW Plt Count Lymph % (Auto) [place] % (Auto) Eos % (Auto) [place] # Seg Neutrophils % Seg Neuts % (Manual) Lymphocytes % (Manual) Seg Neutrophils # Seg Neutrophils # Man Lymphocytes # (Manual) APTT POC ABG pH ABG pH POC ABG pCO2 POC ABG pO2 ABG pO2 ABG HCO3 ABG Base Excess ABG Hemoglobin VBG pH Oxyhemoglobin Sodium Potassium Chloride Carbon Dioxide BUN Creatinine Glucose POC Glucose 176 H 147 H Lactic Acid Calcium AST ALT Alkaline Phosphatase CK-MB (CK-2) CK-MB (CK-2) Rel Index Total Protein Albumin TSH Urine WBC (Auto) 53.0 H Salicylates 01/14/17 01/15/17 01/15/17 16:52 00:04 05:26 WBC RBC Hgb Hct MCV MCH RDW Plt Count Lymph % (Auto) [place] % (Auto) Eos % (Auto) [place] # Seg Neutrophils % Seg Neuts % (Manual) Lymphocytes % (Manual) Seg Neutrophils # Seg Neutrophils # Man Lymphocytes # (Manual) APTT POC ABG pH ABG pH POC ABG pCO2 POC ABG pO2 ABG pO2 ABG HCO3 ABG Base Excess ABG Hemoglobin VBG pH Oxyhemoglobin Sodium Potassium Chloride Carbon Dioxide BUN Creatinine Glucose POC Glucose 131 H 193 H 215 H Lactic Acid Calcium AST ALT Alkaline Phosphatase CK-MB (CK-2) CK-MB (CK-2) Rel Index Total Protein Albumin TSH Urine WBC (Auto) Salicylates 01/15/17 01/15/17 01/15/17 11:49 17:47 21:33 WBC RBC Hgb Hct MCV MCH RDW Plt Count Lymph % (Auto) [place] % (Auto) Eos % (Auto) [place] # Seg Neutrophils % Seg Neuts % (Manual) Lymphocytes % (Manual) Seg Neutrophils # Seg Neutrophils # Man Lymphocytes # (Manual) APTT POC ABG pH ABG pH POC ABG pCO2 POC ABG pO2 ABG pO2 ABG HCO3 ABG Base Excess ABG Hemoglobin VBG pH Oxyhemoglobin Sodium Potassium Chloride Carbon Dioxide BUN Creatinine Glucose POC Glucose 121 H 211 H 275 H Lactic Acid Calcium AST ALT Alkaline Phosphatase CK-MB (CK-2) CK-MB (CK-2) Rel Index Total Protein Albumin TSH Urine WBC (Auto) Salicylates 01/16/17 01/16/17 01/16/17 04:30 05:28 13:45 WBC RBC Hgb Hct MCV MCH RDW Plt Count Lymph % (Auto) [place] % (Auto) Eos % (Auto) [place] # Seg Neutrophils % Seg Neuts % (Manual) Lymphocytes % (Manual) Seg Neutrophils # Seg Neutrophils # Man Lymphocytes # (Manual) APTT POC ABG pH ABG pH 7.457 H POC ABG pCO2 POC ABG pO2 ABG pO2 55.1 L ABG HCO3 19.4 L ABG Base Excess -4.0 L ABG Hemoglobin 6.8 L VBG pH Oxyhemoglobin 94.9 L Sodium Potassium Chloride Carbon Dioxide BUN Creatinine Glucose POC Glucose 271 H 236 H Lactic Acid Calcium AST ALT Alkaline Phosphatase CK-MB (CK-2) CK-MB (CK-2) Rel Index Total Protein Albumin TSH Urine WBC (Auto) Salicylates 01/16/17 01/17/17 01/17/17 21:39 04:10 04:10 WBC 4.4 L RBC 2.98 L Hgb 7.7 L Hct 23.3 L MCV 78 L MCH 26 L RDW 18.1 H Plt Count Lymph % (Auto) [place] % (Auto) Eos % (Auto) [place] # Seg Neutrophils % Seg Neuts % (Manual) Lymphocytes % (Manual) Seg Neutrophils # Seg Neutrophils # Man Lymphocytes # (Manual) APTT POC ABG pH ABG pH POC ABG pCO2 POC ABG pO2 ABG pO2 ABG HCO3 ABG Base Excess ABG Hemoglobin VBG pH Oxyhemoglobin Sodium Potassium 3.3 L Chloride 108.7 H Carbon Dioxide 20 L BUN 8 L Creatinine Glucose 202 H POC Glucose 258 H Lactic Acid Calcium 7.6 L AST ALT Alkaline Phosphatase CK-MB (CK-2) CK-MB (CK-2) Rel Index Total Protein Albumin TSH Urine WBC (Auto) Salicylates 01/17/17 01/17/17 01/17/17 04:35 12:23 16:01 WBC RBC Hgb Hct MCV MCH RDW Plt Count Lymph % (Auto) [place] % (Auto) Eos % (Auto) [place] # Seg Neutrophils % Seg Neuts % (Manual) Lymphocytes % (Manual) Seg Neutrophils # Seg Neutrophils # Man Lymphocytes # (Manual) APTT POC ABG pH ABG pH POC ABG pCO2 POC ABG pO2 ABG pO2 160.3 H ABG HCO3 ABG Base Excess -2.3 L ABG Hemoglobin 7.9 L VBG pH Oxyhemoglobin Sodium Potassium Chloride Carbon Dioxide BUN Creatinine Glucose POC Glucose 321 H 239 H Lactic Acid Calcium AST ALT Alkaline Phosphatase CK-MB (CK-2) CK-MB (CK-2) Rel Index Total Protein Albumin TSH Urine WBC (Auto) Salicylates 01/18/17 01/18/17 01/18/17 05:07 12:09 17:54 WBC RBC Hgb Hct MCV MCH RDW Plt Count Lymph % (Auto) [place] % (Auto) Eos % (Auto) [place] # Seg Neutrophils % Seg Neuts % (Manual) Lymphocytes % (Manual) Seg Neutrophils # Seg Neutrophils # Man Lymphocytes # (Manual) APTT POC ABG pH ABG pH POC ABG pCO2 POC ABG pO2 ABG pO2 ABG HCO3 ABG Base Excess ABG Hemoglobin VBG pH Oxyhemoglobin Sodium Potassium Chloride Carbon Dioxide BUN Creatinine Glucose POC Glucose 155 H 203 H 132 H Lactic Acid Calcium AST ALT Alkaline Phosphatase CK-MB (CK-2) CK-MB (CK-2) Rel Index Total Protein Albumin TSH Urine WBC (Auto) Salicylates 01/18/17 01/19/17 01/19/17 23:43 04:28 12:11 WBC RBC Hgb Hct MCV MCH RDW Plt Count Lymph % (Auto) [place] % (Auto) Eos % (Auto) [place] # Seg Neutrophils % Seg Neuts % (Manual) Lymphocytes % (Manual) Seg Neutrophils # Seg Neutrophils # Man Lymphocytes # (Manual) APTT POC ABG pH ABG pH POC ABG pCO2 POC ABG pO2 ABG pO2 ABG HCO3 ABG Base Excess ABG Hemoglobin VBG pH Oxyhemoglobin Sodium Potassium Chloride Carbon Dioxide BUN Creatinine Glucose POC Glucose 125 H 182 H 153 H Lactic Acid Calcium AST ALT Alkaline Phosphatase CK-MB (CK-2) CK-MB (CK-2) Rel Index Total Protein Albumin TSH Urine WBC (Auto) Salicylates 01/19/17 01/20/17 01/20/17 17:23 00:12 05:44 WBC RBC Hgb Hct MCV MCH RDW Plt Count Lymph % (Auto) [place] % (Auto) Eos % (Auto) [place] # Seg Neutrophils % Seg Neuts % (Manual) Lymphocytes % (Manual) Seg Neutrophils # Seg Neutrophils # Man Lymphocytes # (Manual) APTT POC ABG pH ABG pH POC ABG pCO2 POC ABG pO2 ABG pO2 ABG HCO3 ABG Base Excess ABG Hemoglobin VBG pH Oxyhemoglobin Sodium Potassium Chloride Carbon Dioxide BUN Creatinine Glucose POC Glucose 66 L 139 H 176 H Lactic Acid Calcium AST ALT Alkaline Phosphatase CK-MB (CK-2) CK-MB (CK-2) Rel Index Total Protein Albumin TSH Urine WBC (Auto) Salicylates 01/20/17 01/20/17 01/20/17 11:48 17:42 23:43 WBC RBC Hgb Hct MCV MCH RDW Plt Count Lymph % (Auto) [place] % (Auto) Eos % (Auto) [place] # Seg Neutrophils % Seg Neuts % (Manual) Lymphocytes % (Manual) Seg Neutrophils # Seg Neutrophils # Man Lymphocytes # (Manual) APTT POC ABG pH ABG pH POC ABG pCO2 POC ABG pO2 ABG pO2 ABG HCO3 ABG Base Excess ABG Hemoglobin VBG pH Oxyhemoglobin Sodium Potassium Chloride Carbon Dioxide BUN Creatinine Glucose POC Glucose 218 H 132 H 178 H Lactic Acid Calcium AST ALT Alkaline Phosphatase CK-MB (CK-2) CK-MB (CK-2) Rel Index Total Protein Albumin TSH Urine WBC (Auto) Salicylates 01/21/17 01/21/17 01/21/17 05:34 11:17 23:37 WBC RBC Hgb Hct MCV MCH RDW Plt Count Lymph % (Auto) [place] % (Auto) Eos % (Auto) [place] # Seg Neutrophils % Seg Neuts % (Manual) Lymphocytes % (Manual) Seg Neutrophils # Seg Neutrophils # Man Lymphocytes # (Manual) APTT POC ABG pH ABG pH POC ABG pCO2 POC ABG pO2 ABG pO2 ABG HCO3 ABG Base Excess ABG Hemoglobin VBG pH Oxyhemoglobin Sodium Potassium Chloride Carbon Dioxide BUN Creatinine Glucose POC Glucose 106 H 213 H 140 H Lactic Acid Calcium AST ALT Alkaline Phosphatase CK-MB (CK-2) CK-MB (CK-2) Rel Index Total Protein Albumin TSH Urine WBC (Auto) Salicylates 01/22/17 01/22/17 01/22/17 04:00 04:00 04:58 WBC RBC 3.26 L Hgb 8.3 L Hct 25.5 L MCV 78 L MCH 25 L RDW 17.9 H Plt Count Lymph % (Auto) [place] % (Auto) 7.9 H Eos % (Auto) 6.2 H [place] # Seg Neutrophils % Seg Neuts % (Manual) Lymphocytes % (Manual) Seg Neutrophils # Seg Neutrophils # Man Lymphocytes # (Manual) APTT POC ABG pH ABG pH POC ABG pCO2 POC ABG pO2 ABG pO2 ABG HCO3 ABG Base Excess ABG Hemoglobin VBG pH Oxyhemoglobin Sodium Potassium Chloride 95.5 L Carbon Dioxide 31 H D BUN Creatinine Glucose 134 H POC Glucose 146 H Lactic Acid Calcium AST 44 H ALT Alkaline Phosphatase 379 H CK-MB (CK-2) CK-MB (CK-2) Rel Index Total Protein Albumin 2.7 L TSH Urine WBC (Auto) Salicylates 01/22/17 01/22/17 01/22/17 12:12 18:12 23:39 WBC RBC Hgb Hct MCV MCH RDW Plt Count Lymph % (Auto) [place] % (Auto) Eos % (Auto) [place] # Seg Neutrophils % Seg Neuts % (Manual) Lymphocytes % (Manual) Seg Neutrophils # Seg Neutrophils # Man Lymphocytes # (Manual) APTT POC ABG pH ABG pH POC ABG pCO2 POC ABG pO2 ABG pO2 ABG HCO3 ABG Base Excess ABG Hemoglobin VBG pH Oxyhemoglobin Sodium Potassium Chloride Carbon Dioxide BUN Creatinine Glucose POC Glucose 255 H 182 H 134 H Lactic Acid Calcium AST ALT Alkaline Phosphatase CK-MB (CK-2) CK-MB (CK-2) Rel Index Total Protein Albumin TSH Urine WBC (Auto) Salicylates 01/23/17 01/23/17 01/23/17 04:43 12:12 17:36 WBC RBC Hgb Hct MCV MCH RDW Plt Count Lymph % (Auto) [place] % (Auto) Eos % (Auto) [place] # Seg Neutrophils % Seg Neuts % (Manual) Lymphocytes % (Manual) Seg Neutrophils # Seg Neutrophils # Man Lymphocytes # (Manual) APTT POC ABG pH ABG pH POC ABG pCO2 POC ABG pO2 ABG pO2 ABG HCO3 ABG Base Excess ABG Hemoglobin VBG pH Oxyhemoglobin Sodium Potassium Chloride Carbon Dioxide BUN Creatinine Glucose POC Glucose 218 H 128 H 156 H Lactic Acid Calcium AST ALT Alkaline Phosphatase CK-MB (CK-2) CK-MB (CK-2) Rel Index Total Protein Albumin TSH Urine WBC (Auto) Salicylates 01/24/17 01/24/17 01/24/17 00:08 05:16 11:40 WBC RBC Hgb Hct MCV MCH RDW Plt Count Lymph % (Auto) [place] % (Auto) Eos % (Auto) [place] # Seg Neutrophils % Seg Neuts % (Manual) Lymphocytes % (Manual) Seg Neutrophils # Seg Neutrophils # Man Lymphocytes # (Manual) APTT POC ABG pH ABG pH POC ABG pCO2 POC ABG pO2 ABG pO2 ABG HCO3 ABG Base Excess ABG Hemoglobin VBG pH Oxyhemoglobin Sodium Potassium Chloride Carbon Dioxide BUN Creatinine Glucose POC Glucose 129 H 169 H 187 H Lactic Acid Calcium AST ALT Alkaline Phosphatase CK-MB (CK-2) CK-MB (CK-2) Rel Index Total Protein Albumin TSH Urine WBC (Auto) Salicylates 01/24/17 01/24/17 01/25/17 17:43 23:23 04:56 WBC RBC Hgb Hct MCV MCH RDW Plt Count Lymph % (Auto) [place] % (Auto) Eos % (Auto) [place] # Seg Neutrophils % Seg Neuts % (Manual) Lymphocytes % (Manual) Seg Neutrophils # Seg Neutrophils # Man Lymphocytes # (Manual) APTT POC ABG pH ABG pH POC ABG pCO2 POC ABG pO2 ABG pO2 ABG HCO3 ABG Base Excess ABG Hemoglobin VBG pH Oxyhemoglobin Sodium Potassium Chloride Carbon Dioxide BUN Creatinine Glucose POC Glucose 215 H 222 H 210 H Lactic Acid Calcium AST ALT Alkaline Phosphatase CK-MB (CK-2) CK-MB (CK-2) Rel Index Total Protein Albumin TSH Urine WBC (Auto) Salicylates 01/25/17 01/25/1717 11:52 17:37 00:02 WBC RBC Hgb Hct MCV MCH RDW Plt Count Lymph % (Auto) [place] % (Auto) Eos % (Auto) [place] # Seg Neutrophils % Seg Neuts % (Manual) Lymphocytes % (Manual) Seg Neutrophils # Seg Neutrophils # Man Lymphocytes # (Manual) APTT POC ABG pH ABG pH POC ABG pCO2 POC ABG pO2 ABG pO2 ABG HCO3 ABG Base Excess ABG Hemoglobin VBG pH Oxyhemoglobin Sodium Potassium Chloride Carbon Dioxide BUN Creatinine Glucose POC Glucose 284 H 218 H 192 H Lactic Acid Calcium AST ALT Alkaline Phosphatase CK-MB (CK-2) CK-MB (CK-2) Rel Index Total Protein Albumin TSH Urine WBC (Auto) Salicylates 01/26/17 01/26/17 01/26/17 05:33 12:17 17:50 WBC RBC Hgb Hct MCV MCH RDW Plt Count Lymph % (Auto) [place] % (Auto) Eos % (Auto) [place] # Seg Neutrophils % Seg Neuts % (Manual) Lymphocytes % (Manual) Seg Neutrophils # Seg Neutrophils # Man Lymphocytes # (Manual) APTT POC ABG pH ABG pH POC ABG pCO2 POC ABG pO2 ABG pO2 ABG HCO3 ABG Base Excess ABG Hemoglobin VBG pH Oxyhemoglobin Sodium Potassium Chloride Carbon Dioxide BUN Creatinine Glucose POC Glucose 199 H 227 H 229 H Lactic Acid Calcium AST ALT Alkaline Phosphatase CK-MB (CK-2) CK-MB (CK-2) Rel Index Total Protein Albumin TSH Urine WBC (Auto) Salicylates 01/26/17 01/27/17 01/27/17 23:57 05:31 11:42 WBC RBC Hgb Hct MCV MCH RDW Plt Count Lymph % (Auto) [place] % (Auto) Eos % (Auto) [place] # Seg Neutrophils % Seg Neuts % (Manual) Lymphocytes % (Manual) Seg Neutrophils # Seg Neutrophils # Man Lymphocytes # (Manual) APTT POC ABG pH ABG pH POC ABG pCO2 POC ABG pO2 ABG pO2 ABG HCO3 ABG Base Excess ABG Hemoglobin VBG pH Oxyhemoglobin Sodium Potassium Chloride Carbon Dioxide BUN Creatinine Glucose POC Glucose 186 H 285 H 260 H Lactic Acid Calcium AST ALT Alkaline Phosphatase CK-MB (CK-2) CK-MB (CK-2) Rel Index Total Protein Albumin TSH Urine WBC (Auto) Salicylates 01/27/17 01/27/17 01/27/17 17:47 23:58 Unknown WBC 12.1 H RBC 3.28 L Hgb 8.5 L Hct 25.5 L MCV 78 L MCH 26 L RDW 16.8 H Plt Count 601 H Lymph % (Auto) [place] % (Auto) Eos % (Auto) [place] # Seg Neutrophils % Seg Neuts % (Manual) Lymphocytes % (Manual) Seg Neutrophils # Seg Neutrophils # Man Lymphocytes # (Manual) APTT POC ABG pH ABG pH POC ABG pCO2 POC ABG pO2 ABG pO2 ABG HCO3 ABG Base Excess ABG Hemoglobin VBG pH Oxyhemoglobin Sodium Potassium Chloride Carbon Dioxide BUN Creatinine Glucose POC Glucose 329 H 225 H Lactic Acid Calcium AST ALT Alkaline Phosphatase CK-MB (CK-2) CK-MB (CK-2) Rel Index Total Protein Albumin TSH Urine WBC (Auto) Salicylates 01/27/17 01/28/17 01/28/17 Unknown 03:44 03:44 WBC RBC 3.14 L Hgb 8.2 L Hct 24.1 L MCV 77 L MCH 26 L RDW 16.9 H Plt Count 567 H Lymph % (Auto) [place] % (Auto) Eos % (Auto) [place] # Seg Neutrophils % Seg Neuts % (Manual) Lymphocytes % (Manual) Seg Neutrophils # Seg Neutrophils # Man Lymphocytes # (Manual) APTT POC ABG pH ABG pH POC ABG pCO2 POC ABG pO2 ABG pO2 ABG HCO3 ABG Base Excess ABG Hemoglobin VBG pH Oxyhemoglobin Sodium 128 L Potassium 5.4 H Chloride 87.5 L Carbon Dioxide BUN 44 H 42 H Creatinine Glucose 250 H 128 H POC Glucose Lactic Acid Calcium AST ALT Alkaline Phosphatase CK-MB (CK-2) CK-MB (CK-2) Rel Index Total Protein Albumin TSH Urine WBC (Auto) Salicylates 01/28/17 01/28/17 01/28/17 11:43 16:47 17:52 WBC RBC Hgb Hct MCV MCH RDW Plt Count Lymph % (Auto) [place] % (Auto) Eos % (Auto) [place] # Seg Neutrophils % Seg Neuts % (Manual) Lymphocytes % (Manual) Seg Neutrophils # Seg Neutrophils # Man Lymphocytes # (Manual) APTT POC ABG pH ABG pH POC ABG pCO2 POC ABG pO2 ABG pO2 ABG HCO3 ABG Base Excess ABG Hemoglobin VBG pH Oxyhemoglobin Sodium Potassium Chloride Carbon Dioxide BUN Creatinine Glucose POC Glucose 351 H 249 H Lactic Acid Calcium AST ALT Alkaline Phosphatase CK-MB (CK-2) CK-MB (CK-2) Rel Index Total Protein Albumin TSH Urine WBC (Auto) > 182.0 H Salicylates 01/29/17 01/29/17 01/29/17 05:25 05:25 09:32 WBC 13.6 H RBC 3.25 L Hgb 8.3 L Hct 25.1 L MCV 77 L MCH 26 L RDW 16.8 H Plt Count 514 H Lymph % (Auto) [place] % (Auto) Eos % (Auto) [place] # Seg Neutrophils % Seg Neuts % (Manual) Lymphocytes % (Manual) Seg Neutrophils # Seg Neutrophils # Man Lymphocytes # (Manual) APTT POC ABG pH ABG pH POC ABG pCO2 POC ABG pO2 ABG pO2 ABG HCO3 ABG Base Excess ABG Hemoglobin VBG pH Oxyhemoglobin Sodium Potassium Chloride 97.8 L Carbon Dioxide BUN 34 H Creatinine Glucose 222 H POC Glucose Lactic Acid 2.50 H* Calcium AST ALT Alkaline Phosphatase CK-MB (CK-2) CK-MB (CK-2) Rel Index Total Protein Albumin TSH Urine WBC (Auto) Salicylates 01/29/17 01/29/17 01/29/17 11:56 18:11 23:55 WBC RBC Hgb Hct MCV MCH RDW Plt Count Lymph % (Auto) [place] % (Auto) Eos % (Auto) [place] # Seg Neutrophils % Seg Neuts % (Manual) Lymphocytes % (Manual) Seg Neutrophils # Seg Neutrophils # Man Lymphocytes # (Manual) APTT POC ABG pH ABG pH POC ABG pCO2 POC ABG pO2 ABG pO2 ABG HCO3 ABG Base Excess ABG Hemoglobin VBG pH Oxyhemoglobin Sodium Potassium Chloride Carbon Dioxide BUN Creatinine Glucose POC Glucose 261 H 215 H 176 H Lactic Acid Calcium AST ALT Alkaline Phosphatase CK-MB (CK-2) CK-MB (CK-2) Rel Index Total Protein Albumin TSH Urine WBC (Auto) Salicylates 01/30/17 01/30/17 01/30/17 05:31 05:31 05:34 WBC 15.2 H RBC 3.09 L Hgb 7.9 L Hct 23.9 L MCV 77 L MCH 26 L RDW 16.9 H Plt Count 569 H Lymph % (Auto) [place] % (Auto) Eos % (Auto) [place] # Seg Neutrophils % Seg Neuts % (Manual) Lymphocytes % (Manual) Seg Neutrophils # Seg Neutrophils # Man Lymphocytes # (Manual) APTT POC ABG pH ABG pH POC ABG pCO2 POC ABG pO2 ABG pO2 ABG HCO3 ABG Base Excess ABG Hemoglobin VBG pH Oxyhemoglobin Sodium Potassium Chloride Carbon Dioxide BUN 24 H Creatinine Glucose 235 H POC Glucose 243 H Lactic Acid Calcium AST ALT Alkaline Phosphatase CK-MB (CK-2) CK-MB (CK-2) Rel Index Total Protein Albumin TSH Urine WBC (Auto) Salicylates 01/30/17 01/30/17 01/30/17 11:38 17:58 23:29 WBC RBC Hgb Hct MCV MCH RDW Plt Count Lymph % (Auto) [place] % (Auto) Eos % (Auto) [place] # Seg Neutrophils % Seg Neuts % (Manual) Lymphocytes % (Manual) Seg Neutrophils # Seg Neutrophils # Man Lymphocytes # (Manual) APTT POC ABG pH ABG pH POC ABG pCO2 POC ABG pO2 ABG pO2 ABG HCO3 ABG Base Excess ABG Hemoglobin VBG pH Oxyhemoglobin Sodium Potassium Chloride Carbon Dioxide BUN Creatinine Glucose POC Glucose 298 H 208 H 245 H Lactic Acid Calcium AST ALT Alkaline Phosphatase CK-MB (CK-2) CK-MB (CK-2) Rel Index Total Protein Albumin TSH Urine WBC (Auto) Salicylates 01/31/17 01/31/17 01/31/17 04:39 04:39 05:57 WBC 11.4 H RBC 3.22 L Hgb 8.2 L Hct 24.9 L MCV 78 L MCH 25 L RDW 17.2 H Plt Count 576 H Lymph % (Auto) [place] % (Auto) Eos % (Auto) [place] # Seg Neutrophils % Seg Neuts % (Manual) Lymphocytes % (Manual) Seg Neutrophils # Seg Neutrophils # Man Lymphocytes # (Manual) APTT POC ABG pH ABG pH POC ABG pCO2 POC ABG pO2 ABG pO2 ABG HCO3 ABG Base Excess ABG Hemoglobin VBG pH Oxyhemoglobin Sodium Potassium Chloride Carbon Dioxide BUN Creatinine 0.7 L Glucose 223 H POC Glucose 264 H Lactic Acid Calcium AST ALT Alkaline Phosphatase CK-MB (CK-2) CK-MB (CK-2) Rel Index Total Protein Albumin TSH Urine WBC (Auto) Salicylates 01/31/17 01/31/17 01/31/17 12:23 17:41 18:55 WBC RBC Hgb Hct MCV MCH RDW Plt Count Lymph % (Auto) [place] % (Auto) Eos % (Auto) [place] # Seg Neutrophils % Seg Neuts % (Manual) Lymphocytes % (Manual) Seg Neutrophils # Seg Neutrophils # Man Lymphocytes # (Manual) APTT POC ABG pH ABG pH POC ABG pCO2 32.8 L POC ABG pO2 ABG pO2 ABG HCO3 ABG Base Excess ABG Hemoglobin VBG pH Oxyhemoglobin Sodium Potassium Chloride Carbon Dioxide BUN Creatinine Glucose POC Glucose 252 H 208 H Lactic Acid Calcium AST ALT Alkaline Phosphatase CK-MB (CK-2) CK-MB (CK-2) Rel Index Total Protein Albumin TSH Urine WBC (Auto) Salicylates 01/31/17 02/01/17 02/01/17 22:59 03:38 03:38 WBC RBC 2.81 L Hgb 7.4 L Hct 22.1 L MCV 79 L MCH 27 L RDW 17.0 H Plt Count 540 H Lymph % (Auto) [place] % (Auto) Eos % (Auto) [place] # Seg Neutrophils % Seg Neuts % (Manual) Lymphocytes % (Manual) Seg Neutrophils # Seg Neutrophils # Man Lymphocytes # (Manual) APTT POC ABG pH ABG pH POC ABG pCO2 POC ABG pO2 ABG pO2 ABG HCO3 ABG Base Excess ABG Hemoglobin VBG pH Oxyhemoglobin Sodium Potassium Chloride Carbon Dioxide 21 L BUN Creatinine 0.7 L Glucose POC Glucose 40 L Lactic Acid Calcium AST ALT Alkaline Phosphatase CK-MB (CK-2) CK-MB (CK-2) Rel Index Total Protein Albumin TSH Urine WBC (Auto) Salicylates 02/01/17 02/01/17 02/01/17 05:17 12:19 16:44 WBC RBC Hgb Hct MCV MCH RDW Plt Count Lymph % (Auto) [place] % (Auto) Eos % (Auto) [place] # Seg Neutrophils % Seg Neuts % (Manual) Lymphocytes % (Manual) Seg Neutrophils # Seg Neutrophils # Man Lymphocytes # (Manual) APTT POC ABG pH ABG pH POC ABG pCO2 POC ABG pO2 ABG pO2 ABG HCO3 ABG Base Excess ABG Hemoglobin VBG pH Oxyhemoglobin Sodium Potassium Chloride Carbon Dioxide BUN Creatinine Glucose POC Glucose 140 H 213 H 172 H Lactic Acid Calcium AST ALT Alkaline Phosphatase CK-MB (CK-2) CK-MB (CK-2) Rel Index Total Protein Albumin TSH Urine WBC (Auto) Salicylates 02/01/17 02/02/17 02/02/17 23:59 05:14 11:24 WBC RBC Hgb Hct MCV MCH RDW Plt Count Lymph % (Auto) [place] % (Auto) Eos % (Auto) [place] # Seg Neutrophils % Seg Neuts % (Manual) Lymphocytes % (Manual) Seg Neutrophils # Seg Neutrophils # Man Lymphocytes # (Manual) APTT POC ABG pH ABG pH POC ABG pCO2 POC ABG pO2 ABG pO2 ABG HCO3 ABG Base Excess ABG Hemoglobin VBG pH Oxyhemoglobin Sodium Potassium Chloride Carbon Dioxide BUN Creatinine Glucose POC Glucose 181 H 194 H 209 H Lactic Acid Calcium AST ALT Alkaline Phosphatase CK-MB (CK-2) CK-MB (CK-2) Rel Index Total Protein Albumin TSH Urine WBC (Auto) Salicylates 02/02/17 02/02/17 02/02/17 11:46 11:46 17:47 WBC RBC 2.94 L Hgb 7.5 L Hct 23.0 L MCV 78 L MCH 25 L RDW 16.9 H Plt Count 520 H Lymph % (Auto) [place] % (Auto) Eos % (Auto) [place] # Seg Neutrophils % Seg Neuts % (Manual) Lymphocytes % (Manual) Seg Neutrophils # Seg Neutrophils # Man Lymphocytes # (Manual) APTT POC ABG pH ABG pH POC ABG pCO2 POC ABG pO2 ABG pO2 ABG HCO3 ABG Base Excess ABG Hemoglobin VBG pH Oxyhemoglobin Sodium Potassium Chloride Carbon Dioxide BUN Creatinine 0.6 L Glucose 189 H POC Glucose 147 H Lactic Acid Calcium 8.1 L AST ALT Alkaline Phosphatase CK-MB (CK-2) CK-MB (CK-2) Rel Index Total Protein Albumin TSH Urine WBC (Auto) Salicylates 02/02/17 02/03/17 02/03/17 23:32 05:53 11:19 WBC RBC Hgb Hct MCV MCH RDW Plt Count Lymph % (Auto) [place] % (Auto) Eos % (Auto) [place] # Seg Neutrophils % Seg Neuts % (Manual) Lymphocytes % (Manual) Seg Neutrophils # Seg Neutrophils # Man Lymphocytes # (Manual) APTT POC ABG pH ABG pH POC ABG pCO2 POC ABG pO2 ABG pO2 ABG HCO3 ABG Base Excess ABG Hemoglobin VBG pH Oxyhemoglobin Sodium Potassium Chloride Carbon Dioxide BUN Creatinine Glucose POC Glucose 176 H 224 H 228 H Lactic Acid Calcium AST ALT Alkaline Phosphatase CK-MB (CK-2) CK-MB (CK-2) Rel Index Total Protein Albumin TSH Urine WBC (Auto) Salicylates 02/03/17 02/03/17 02/04/17 16:59 23:38 05:45 WBC RBC Hgb Hct MCV MCH RDW Plt Count Lymph % (Auto) [place] % (Auto) Eos % (Auto) [place] # Seg Neutrophils % Seg Neuts % (Manual) Lymphocytes % (Manual) Seg Neutrophils # Seg Neutrophils # Man Lymphocytes # (Manual) APTT POC ABG pH ABG pH POC ABG pCO2 POC ABG pO2 ABG pO2 ABG HCO3 ABG Base Excess ABG Hemoglobin VBG pH Oxyhemoglobin Sodium Potassium Chloride Carbon Dioxide BUN Creatinine Glucose POC Glucose 189 H 191 H 251 H Lactic Acid Calcium AST ALT Alkaline Phosphatase CK-MB (CK-2) CK-MB (CK-2) Rel Index Total Protein Albumin TSH Urine WBC (Auto) Salicylates 02/04/17 02/04/17 02/05/17 11:20 17:20 00:17 WBC RBC Hgb Hct MCV MCH RDW Plt Count Lymph % (Auto) [place] % (Auto) Eos % (Auto) [place] # Seg Neutrophils % Seg Neuts % (Manual) Lymphocytes % (Manual) Seg Neutrophils # Seg Neutrophils # Man Lymphocytes # (Manual) APTT POC ABG pH ABG pH POC ABG pCO2 POC ABG pO2 ABG pO2 ABG HCO3 ABG Base Excess ABG Hemoglobin VBG pH Oxyhemoglobin Sodium Potassium Chloride Carbon Dioxide BUN Creatinine Glucose POC Glucose 243 H 163 H 200 H Lactic Acid Calcium AST ALT Alkaline Phosphatase CK-MB (CK-2) CK-MB (CK-2) Rel Index Total Protein Albumin TSH Urine WBC (Auto) Salicylates 02/05/17 02/05/17 02/05/17 05:38 12:38 16:29 WBC RBC Hgb Hct MCV MCH RDW Plt Count Lymph % (Auto) [place] % (Auto) Eos % (Auto) [place] # Seg Neutrophils % Seg Neuts % (Manual) Lymphocytes % (Manual) Seg Neutrophils # Seg Neutrophils # Man Lymphocytes # (Manual) APTT POC ABG pH ABG pH POC ABG pCO2 POC ABG pO2 ABG pO2 ABG HCO3 ABG Base Excess ABG Hemoglobin VBG pH Oxyhemoglobin Sodium Potassium Chloride Carbon Dioxide BUN Creatinine Glucose POC Glucose 248 H 241 H 257 H Lactic Acid Calcium AST ALT Alkaline Phosphatase CK-MB (CK-2) CK-MB (CK-2) Rel Index Total Protein Albumin TSH Urine WBC (Auto) Salicylates 02/05/17 02/06/17 02/06/17 23:56 05:30 11:50 WBC RBC Hgb Hct MCV MCH RDW Plt Count Lymph % (Auto) [place] % (Auto) Eos % (Auto) [place] # Seg Neutrophils % Seg Neuts % (Manual) Lymphocytes % (Manual) Seg Neutrophils # Seg Neutrophils # Man Lymphocytes # (Manual) APTT POC ABG pH ABG pH POC ABG pCO2 POC ABG pO2 ABG pO2 ABG HCO3 ABG Base Excess ABG Hemoglobin VBG pH Oxyhemoglobin Sodium Potassium Chloride Carbon Dioxide BUN Creatinine Glucose POC Glucose 258 H 120 H 254 H Lactic Acid Calcium AST ALT Alkaline Phosphatase CK-MB (CK-2) CK-MB (CK-2) Rel Index Total Protein Albumin TSH Urine WBC (Auto) Salicylates 02/06/17 02/06/17 02/07/17 17:11 23:50 05:22 WBC RBC Hgb Hct MCV MCH RDW Plt Count Lymph % (Auto) [place] % (Auto) Eos % (Auto) [place] # Seg Neutrophils % Seg Neuts % (Manual) Lymphocytes % (Manual) Seg Neutrophils # Seg Neutrophils # Man Lymphocytes # (Manual) APTT POC ABG pH ABG pH POC ABG pCO2 POC ABG pO2 ABG pO2 ABG HCO3 ABG Base Excess ABG Hemoglobin VBG pH Oxyhemoglobin Sodium Potassium Chloride Carbon Dioxide BUN Creatinine Glucose POC Glucose 149 H 240 H 258 H Lactic Acid Calcium AST ALT Alkaline Phosphatase CK-MB (CK-2) CK-MB (CK-2) Rel Index Total Protein Albumin TSH Urine WBC (Auto) Salicylates 02/07/17 02/07/17 02/07/17 11:15 18:33 23:59 WBC RBC Hgb Hct MCV MCH RDW Plt Count Lymph % (Auto) [place] % (Auto) Eos % (Auto) [place] # Seg Neutrophils % Seg Neuts % (Manual) Lymphocytes % (Manual) Seg Neutrophils # Seg Neutrophils # Man Lymphocytes # (Manual) APTT POC ABG pH ABG pH POC ABG pCO2 POC ABG pO2 ABG pO2 ABG HCO3 ABG Base Excess ABG Hemoglobin VBG pH Oxyhemoglobin Sodium Potassium Chloride Carbon Dioxide BUN Creatinine Glucose POC Glucose 239 H 176 H 186 H Lactic Acid Calcium AST ALT Alkaline Phosphatase CK-MB (CK-2) CK-MB (CK-2) Rel Index Total Protein Albumin TSH Urine WBC (Auto) Salicylates 02/08/17 02/08/17 02/08/17 06:15 11:55 16:55 WBC RBC Hgb Hct MCV MCH RDW Plt Count Lymph % (Auto) [place] % (Auto) Eos % (Auto) [place] # Seg Neutrophils % Seg Neuts % (Manual) Lymphocytes % (Manual) Seg Neutrophils # Seg Neutrophils # Man Lymphocytes # (Manual) APTT POC ABG pH ABG pH POC ABG pCO2 POC ABG pO2 ABG pO2 ABG HCO3 ABG Base Excess ABG Hemoglobin VBG pH Oxyhemoglobin Sodium Potassium Chloride Carbon Dioxide BUN Creatinine Glucose POC Glucose 195 H 129 H 246 H Lactic Acid Calcium AST ALT Alkaline Phosphatase CK-MB (CK-2) CK-MB (CK-2) Rel Index Total Protein Albumin TSH Urine WBC (Auto) Salicylates 02/08/17 02/09/17 02/09/17 23:51 05:51 07:24 WBC 14.7 H RBC 3.39 L Hgb 8.9 L Hct 26.4 L MCV 78 L MCH 26 L RDW 18.4 H Plt Count 670 H Lymph % (Auto) 11.8 L [place] % (Auto) Eos % (Auto) [place] # Seg Neutrophils % 81.2 H Seg Neuts % (Manual) Lymphocytes % (Manual) Seg Neutrophils # 11.9 H Seg Neutrophils # Man Lymphocytes # (Manual) APTT POC ABG pH ABG pH POC ABG pCO2 POC ABG pO2 ABG pO2 ABG HCO3 ABG Base Excess ABG Hemoglobin VBG pH Oxyhemoglobin Sodium Potassium Chloride Carbon Dioxide BUN Creatinine Glucose POC Glucose 262 H 295 H Lactic Acid Calcium AST ALT Alkaline Phosphatase CK-MB (CK-2) CK-MB (CK-2) Rel Index Total Protein Albumin TSH Urine WBC (Auto) Salicylates 02/09/17 02/09/17 02/09/17 07:24 12:08 18:39 WBC RBC Hgb Hct MCV MCH RDW Plt Count Lymph % (Auto) [place] % (Auto) Eos % (Auto) [place] # Seg Neutrophils % Seg Neuts % (Manual) Lymphocytes % (Manual) Seg Neutrophils # Seg Neutrophils # Man Lymphocytes # (Manual) APTT POC ABG pH ABG pH POC ABG pCO2 POC ABG pO2 ABG pO2 ABG HCO3 ABG Base Excess ABG Hemoglobin VBG pH Oxyhemoglobin Sodium Potassium Chloride 95.5 L Carbon Dioxide BUN 52 H Creatinine Glucose 277 H POC Glucose 236 H 151 H Lactic Acid Calcium AST ALT Alkaline Phosphatase CK-MB (CK-2) CK-MB (CK-2) Rel Index Total Protein Albumin TSH Urine WBC (Auto) Salicylates 02/10/17 02/10/17 02/10/17 00:01 05:44 11:21 WBC RBC Hgb Hct MCV MCH RDW Plt Count Lymph % (Auto) [place] % (Auto) Eos % (Auto) [place] # Seg Neutrophils % Seg Neuts % (Manual) Lymphocytes % (Manual) Seg Neutrophils # Seg Neutrophils # Man Lymphocytes # (Manual) APTT POC ABG pH ABG pH POC ABG pCO2 POC ABG pO2 ABG pO2 ABG HCO3 ABG Base Excess ABG Hemoglobin VBG pH Oxyhemoglobin Sodium Potassium Chloride Carbon Dioxide BUN Creatinine Glucose POC Glucose 210 H 201 H 233 H Lactic Acid Calcium AST ALT Alkaline Phosphatase CK-MB (CK-2) CK-MB (CK-2) Rel Index Total Protein Albumin TSH Urine WBC (Auto) Salicylates 02/10/17 02/10/17 02/11/17 17:29 23:56 05:24 WBC RBC Hgb Hct MCV MCH RDW Plt Count Lymph % (Auto) [place] % (Auto) Eos % (Auto) [place] # Seg Neutrophils % Seg Neuts % (Manual) Lymphocytes % (Manual) Seg Neutrophils # Seg Neutrophils # Man Lymphocytes # (Manual) APTT POC ABG pH ABG pH POC ABG pCO2 POC ABG pO2 ABG pO2 ABG HCO3 ABG Base Excess ABG Hemoglobin VBG pH Oxyhemoglobin Sodium Potassium Chloride Carbon Dioxide BUN Creatinine Glucose POC Glucose 167 H 191 H 135 H Lactic Acid Calcium AST ALT Alkaline Phosphatase CK-MB (CK-2) CK-MB (CK-2) Rel Index Total Protein Albumin TSH Urine WBC (Auto) Salicylates 02/11/17 02/11/17 02/11/17 12:25 17:03 23:59 WBC RBC Hgb Hct MCV MCH RDW Plt Count Lymph % (Auto) [place] % (Auto) Eos % (Auto) [place] # Seg Neutrophils % Seg Neuts % (Manual) Lymphocytes % (Manual) Seg Neutrophils # Seg Neutrophils # Man Lymphocytes # (Manual) APTT POC ABG pH ABG pH POC ABG pCO2 POC ABG pO2 ABG pO2 ABG HCO3 ABG Base Excess ABG Hemoglobin VBG pH Oxyhemoglobin Sodium Potassium Chloride Carbon Dioxide BUN Creatinine Glucose POC Glucose 275 H 172 H 215 H Lactic Acid Calcium AST ALT Alkaline Phosphatase CK-MB (CK-2) CK-MB (CK-2) Rel Index Total Protein Albumin TSH Urine WBC (Auto) Salicylates 02/12/17 02/12/17 02/12/17 05:39 11:33 17:55 WBC RBC Hgb Hct MCV MCH RDW Plt Count Lymph % (Auto) [place] % (Auto) Eos % (Auto) [place] # Seg Neutrophils % Seg Neuts % (Manual) Lymphocytes % (Manual) Seg Neutrophils # Seg Neutrophils # Man Lymphocytes # (Manual) APTT POC ABG pH ABG pH POC ABG pCO2 POC ABG pO2 ABG pO2 ABG HCO3 ABG Base Excess ABG Hemoglobin VBG pH Oxyhemoglobin Sodium Potassium Chloride Carbon Dioxide BUN Creatinine Glucose POC Glucose 261 H 217 H 172 H Lactic Acid Calcium AST ALT Alkaline Phosphatase CK-MB (CK-2) CK-MB (CK-2) Rel Index Total Protein Albumin TSH Urine WBC (Auto) Salicylates 02/13/17 02/13/17 02/13/17 00:25 06:46 11:26 WBC RBC Hgb Hct MCV MCH RDW Plt Count Lymph % (Auto) [place] % (Auto) Eos % (Auto) [place] # Seg Neutrophils % Seg Neuts % (Manual) Lymphocytes % (Manual) Seg Neutrophils # Seg Neutrophils # Man Lymphocytes # (Manual) APTT POC ABG pH ABG pH POC ABG pCO2 POC ABG pO2 ABG pO2 ABG HCO3 ABG Base Excess ABG Hemoglobin VBG pH Oxyhemoglobin Sodium Potassium Chloride Carbon Dioxide BUN Creatinine Glucose POC Glucose 207 H 219 H 231 H Lactic Acid Calcium AST ALT Alkaline Phosphatase CK-MB (CK-2) CK-MB (CK-2) Rel Index Total Protein Albumin TSH Urine WBC (Auto) Salicylates 02/13/17 02/13/17 02/14/17 17:12 23:44 05:44 WBC RBC Hgb Hct MCV MCH RDW Plt Count Lymph % (Auto) [place] % (Auto) Eos % (Auto) [place] # Seg Neutrophils % Seg Neuts % (Manual) Lymphocytes % (Manual) Seg Neutrophils # Seg Neutrophils # Man Lymphocytes # (Manual) APTT POC ABG pH ABG pH POC ABG pCO2 POC ABG pO2 ABG pO2 ABG HCO3 ABG Base Excess ABG Hemoglobin VBG pH Oxyhemoglobin Sodium Potassium Chloride Carbon Dioxide BUN Creatinine Glucose POC Glucose 190 H 256 H 184 H Lactic Acid Calcium AST ALT Alkaline Phosphatase CK-MB (CK-2) CK-MB (CK-2) Rel Index Total Protein Albumin TSH Urine WBC (Auto) Salicylates 02/14/17 02/14/17 02/14/17 12:21 17:57 23:18 WBC RBC Hgb Hct MCV MCH RDW Plt Count Lymph % (Auto) [place] % (Auto) Eos % (Auto) [place] # Seg Neutrophils % Seg Neuts % (Manual) Lymphocytes % (Manual) Seg Neutrophils # Seg Neutrophils # Man Lymphocytes # (Manual) APTT POC ABG pH ABG pH POC ABG pCO2 POC ABG pO2 ABG pO2 ABG HCO3 ABG Base Excess ABG Hemoglobin VBG pH Oxyhemoglobin Sodium Potassium Chloride Carbon Dioxide BUN Creatinine Glucose POC Glucose 233 H 155 H 165 H Lactic Acid Calcium AST ALT Alkaline Phosphatase CK-MB (CK-2) CK-MB (CK-2) Rel Index Total Protein Albumin TSH Urine WBC (Auto) Salicylates 02/15/17 02/15/17 02/15/17 05:33 11:45 17:20 WBC RBC Hgb Hct MCV MCH RDW Plt Count Lymph % (Auto) [place] % (Auto) Eos % (Auto) [place] # Seg Neutrophils % Seg Neuts % (Manual) Lymphocytes % (Manual) Seg Neutrophils # Seg Neutrophils # Man Lymphocytes # (Manual) APTT POC ABG pH ABG pH POC ABG pCO2 POC ABG pO2 ABG pO2 ABG HCO3 ABG Base Excess ABG Hemoglobin VBG pH Oxyhemoglobin Sodium Potassium Chloride Carbon Dioxide BUN Creatinine Glucose POC Glucose 239 H 130 H 189 H Lactic Acid Calcium AST ALT Alkaline Phosphatase CK-MB (CK-2) CK-MB (CK-2) Rel Index Total Protein Albumin TSH Urine WBC (Auto) Salicylates 02/16/17 02/16/17 02/16/17 00:14 05:09 12:31 WBC RBC Hgb Hct MCV MCH RDW Plt Count Lymph % (Auto) [place] % (Auto) Eos % (Auto) [place] # Seg Neutrophils % Seg Neuts % (Manual) Lymphocytes % (Manual) Seg Neutrophils # Seg Neutrophils # Man Lymphocytes # (Manual) APTT POC ABG pH ABG pH POC ABG pCO2 POC ABG pO2 ABG pO2 ABG HCO3 ABG Base Excess ABG Hemoglobin VBG pH Oxyhemoglobin Sodium Potassium Chloride Carbon Dioxide BUN Creatinine Glucose POC Glucose 197 H 226 H 178 H Lactic Acid Calcium AST ALT Alkaline Phosphatase CK-MB (CK-2) CK-MB (CK-2) Rel Index Total Protein Albumin TSH Urine WBC (Auto) Salicylates 02/16/17 02/16/17 02/17/17 16:35 23:49 05:37 WBC RBC Hgb Hct MCV MCH RDW Plt Count Lymph % (Auto) [place] % (Auto) Eos % (Auto) [place] # Seg Neutrophils % Seg Neuts % (Manual) Lymphocytes % (Manual) Seg Neutrophils # Seg Neutrophils # Man Lymphocytes # (Manual) APTT POC ABG pH ABG pH POC ABG pCO2 POC ABG pO2 ABG pO2 ABG HCO3 ABG Base Excess ABG Hemoglobin VBG pH Oxyhemoglobin Sodium Potassium Chloride Carbon Dioxide BUN Creatinine Glucose POC Glucose 174 H 62 L 153 H Lactic Acid Calcium AST ALT Alkaline Phosphatase CK-MB (CK-2) CK-MB (CK-2) Rel Index Total Protein Albumin TSH Urine WBC (Auto) Salicylates 02/17/17 02/17/17 02/17/17 11:39 17:02 22:24 WBC RBC Hgb Hct MCV MCH RDW Plt Count Lymph % (Auto) [place] % (Auto) Eos % (Auto) [place] # Seg Neutrophils % Seg Neuts % (Manual) Lymphocytes % (Manual) Seg Neutrophils # Seg Neutrophils # Man Lymphocytes # (Manual) APTT POC ABG pH ABG pH POC ABG pCO2 POC ABG pO2 ABG pO2 ABG HCO3 ABG Base Excess ABG Hemoglobin VBG pH Oxyhemoglobin Sodium Potassium Chloride Carbon Dioxide BUN Creatinine Glucose POC Glucose 231 H 112 H 116 H Lactic Acid Calcium AST ALT Alkaline Phosphatase CK-MB (CK-2) CK-MB (CK-2) Rel Index Total Protein Albumin TSH Urine WBC (Auto) Salicylates 02/18/17 02/19/17 02/19/17 15:34 05:09 07:57 WBC RBC Hgb Hct MCV MCH RDW Plt Count Lymph % (Auto) [place] % (Auto) Eos % (Auto) [place] # Seg Neutrophils % Seg Neuts % (Manual) Lymphocytes % (Manual) Seg Neutrophils # Seg Neutrophils # Man Lymphocytes # (Manual) APTT POC ABG pH ABG pH POC ABG pCO2 POC ABG pO2 ABG pO2 ABG HCO3 ABG Base Excess ABG Hemoglobin VBG pH Oxyhemoglobin Sodium Potassium Chloride Carbon Dioxide BUN Creatinine Glucose POC Glucose 215 H 218 H 283 H Lactic Acid Calcium AST ALT Alkaline Phosphatase CK-MB (CK-2) CK-MB (CK-2) Rel Index Total Protein Albumin TSH Urine WBC (Auto) Salicylates 02/19/17 02/19/17 02/20/17 14:49 22:10 05:10 WBC RBC Hgb Hct MCV MCH RDW Plt Count Lymph % (Auto) [place] % (Auto) Eos % (Auto) [place] # Seg Neutrophils % Seg Neuts % (Manual) Lymphocytes % (Manual) Seg Neutrophils # Seg Neutrophils # Man Lymphocytes # (Manual) APTT POC ABG pH ABG pH POC ABG pCO2 POC ABG pO2 ABG pO2 ABG HCO3 ABG Base Excess ABG Hemoglobin VBG pH Oxyhemoglobin Sodium Potassium Chloride Carbon Dioxide BUN Creatinine Glucose POC Glucose 290 H 169 H 209 H Lactic Acid Calcium AST ALT Alkaline Phosphatase CK-MB (CK-2) CK-MB (CK-2) Rel Index Total Protein Albumin TSH Urine WBC (Auto) Salicylates 02/20/17 02/20/17 02/21/17 15:05 21:52 02:00 WBC RBC Hgb Hct MCV MCH RDW Plt Count Lymph % (Auto) [place] % (Auto) Eos % (Auto) [place] # Seg Neutrophils % Seg Neuts % (Manual) Lymphocytes % (Manual) Seg Neutrophils # Seg Neutrophils # Man Lymphocytes # (Manual) APTT POC ABG pH ABG pH POC ABG pCO2 POC ABG pO2 ABG pO2 ABG HCO3 ABG Base Excess ABG Hemoglobin VBG pH Oxyhemoglobin Sodium Potassium Chloride Carbon Dioxide BUN Creatinine Glucose POC Glucose 172 H 209 H 216 H Lactic Acid Calcium AST ALT Alkaline Phosphatase CK-MB (CK-2) CK-MB (CK-2) Rel Index Total Protein Albumin TSH Urine WBC (Auto) Salicylates 02/21/17 02/21/17 02/21/17 04:54 14:43 17:47 WBC RBC Hgb Hct MCV MCH RDW Plt Count Lymph % (Auto) [place] % (Auto) Eos % (Auto) [place] # Seg Neutrophils % Seg Neuts % (Manual) Lymphocytes % (Manual) Seg Neutrophils # Seg Neutrophils # Man Lymphocytes # (Manual) APTT POC ABG pH ABG pH POC ABG pCO2 POC ABG pO2 ABG pO2 ABG HCO3 ABG Base Excess ABG Hemoglobin VBG pH Oxyhemoglobin Sodium Potassium Chloride Carbon Dioxide BUN Creatinine Glucose POC Glucose 227 H 290 H 220 H Lactic Acid Calcium AST ALT Alkaline Phosphatase CK-MB (CK-2) CK-MB (CK-2) Rel Index Total Protein Albumin TSH Urine WBC (Auto) Salicylates 02/21/17 02/22/17 02/22/17 22:02 04:52 15:25 WBC RBC Hgb Hct MCV MCH RDW Plt Count Lymph % (Auto) [place] % (Auto) Eos % (Auto) [place] # Seg Neutrophils % Seg Neuts % (Manual) Lymphocytes % (Manual) Seg Neutrophils # Seg Neutrophils # Man Lymphocytes # (Manual) APTT POC ABG pH ABG pH POC ABG pCO2 POC ABG pO2 ABG pO2 ABG HCO3 ABG Base Excess ABG Hemoglobin VBG pH Oxyhemoglobin Sodium Potassium Chloride Carbon Dioxide BUN Creatinine Glucose POC Glucose 246 H 212 H 236 H Lactic Acid Calcium AST ALT Alkaline Phosphatase CK-MB (CK-2) CK-MB (CK-2) Rel Index Total Protein Albumin TSH Urine WBC (Auto) Salicylates 02/22/17 02/23/17 02/23/17 21:33 06:04 10:00 WBC RBC Hgb Hct MCV MCH RDW Plt Count Lymph % (Auto) [place] % (Auto) Eos % (Auto) [place] # Seg Neutrophils % Seg Neuts % (Manual) Lymphocytes % (Manual) Seg Neutrophils # Seg Neutrophils # Man Lymphocytes # (Manual) APTT POC ABG pH ABG pH POC ABG pCO2 POC ABG pO2 ABG pO2 ABG HCO3 ABG Base Excess ABG Hemoglobin VBG pH Oxyhemoglobin Sodium Potassium Chloride Carbon Dioxide BUN Creatinine Glucose POC Glucose 255 H 208 H 174 H Lactic Acid Calcium AST ALT Alkaline Phosphatase CK-MB (CK-2) CK-MB (CK-2) Rel Index Total Protein Albumin TSH Urine WBC (Auto) Salicylates 02/23/17 02/23/17 02/23/17 12:52 17:15 21:51 WBC RBC Hgb Hct MCV MCH RDW Plt Count Lymph % (Auto) [place] % (Auto) Eos % (Auto) [place] # Seg Neutrophils % Seg Neuts % (Manual) Lymphocytes % (Manual) Seg Neutrophils # Seg Neutrophils # Man Lymphocytes # (Manual) APTT POC ABG pH ABG pH POC ABG pCO2 POC ABG pO2 ABG pO2 ABG HCO3 ABG Base Excess ABG Hemoglobin VBG pH Oxyhemoglobin Sodium Potassium Chloride Carbon Dioxide BUN Creatinine Glucose POC Glucose 203 H 269 H 205 H Lactic Acid Calcium AST ALT Alkaline Phosphatase CK-MB (CK-2) CK-MB (CK-2) Rel Index Total Protein Albumin TSH Urine WBC (Auto) Salicylates 02/24/17 02/24/17 02/24/17 10:23 17:45 21:24 WBC RBC Hgb Hct MCV MCH RDW Plt Count Lymph % (Auto) [place] % (Auto) Eos % (Auto) [place] # Seg Neutrophils % Seg Neuts % (Manual) Lymphocytes % (Manual) Seg Neutrophils # Seg Neutrophils # Man Lymphocytes # (Manual) APTT POC ABG pH ABG pH POC ABG pCO2 POC ABG pO2 ABG pO2 ABG HCO3 ABG Base Excess ABG Hemoglobin VBG pH Oxyhemoglobin Sodium Potassium Chloride Carbon Dioxide BUN Creatinine Glucose POC Glucose 280 H 239 H 254 H Lactic Acid Calcium AST ALT Alkaline Phosphatase CK-MB (CK-2) CK-MB (CK-2) Rel Index Total Protein Albumin TSH Urine WBC (Auto) Salicylates 02/25/17 02/25/17 02/25/17 02:12 05:17 14:32 WBC RBC Hgb Hct MCV MCH RDW Plt Count Lymph % (Auto) [place] % (Auto) Eos % (Auto) [place] # Seg Neutrophils % Seg Neuts % (Manual) Lymphocytes % (Manual) Seg Neutrophils # Seg Neutrophils # Man Lymphocytes # (Manual) APTT POC ABG pH ABG pH POC ABG pCO2 POC ABG pO2 ABG pO2 ABG HCO3 ABG Base Excess ABG Hemoglobin VBG pH Oxyhemoglobin Sodium Potassium Chloride Carbon Dioxide BUN Creatinine Glucose POC Glucose 296 H 332 H 353 H Lactic Acid Calcium AST ALT Alkaline Phosphatase CK-MB (CK-2) CK-MB (CK-2) Rel Index Total Protein Albumin TSH Urine WBC (Auto) Salicylates 02/25/17 02/26/17 02/26/17 22:14 00:37 05:52 WBC RBC Hgb Hct MCV MCH RDW Plt Count Lymph % (Auto) [place] % (Auto) Eos % (Auto) [place] # Seg Neutrophils % Seg Neuts % (Manual) Lymphocytes % (Manual) Seg Neutrophils # Seg Neutrophils # Man Lymphocytes # (Manual) APTT POC ABG pH ABG pH POC ABG pCO2 POC ABG pO2 ABG pO2 ABG HCO3 ABG Base Excess ABG Hemoglobin VBG pH Oxyhemoglobin Sodium Potassium Chloride Carbon Dioxide BUN Creatinine Glucose POC Glucose 201 H 233 H 269 H Lactic Acid Calcium AST ALT Alkaline Phosphatase CK-MB (CK-2) CK-MB (CK-2) Rel Index Total Protein Albumin TSH Urine WBC (Auto) Salicylates 02/26/17 02/26/17 02/26/17 11:48 13:49 21:26 WBC RBC Hgb Hct MCV MCH RDW Plt Count Lymph % (Auto) [place] % (Auto) Eos % (Auto) [place] # Seg Neutrophils % Seg Neuts % (Manual) Lymphocytes % (Manual) Seg Neutrophils # Seg Neutrophils # Man Lymphocytes # (Manual) APTT POC ABG pH ABG pH POC ABG pCO2 POC ABG pO2 ABG pO2 ABG HCO3 ABG Base Excess ABG Hemoglobin VBG pH Oxyhemoglobin Sodium Potassium Chloride Carbon Dioxide BUN Creatinine Glucose POC Glucose 333 H 322 H 244 H Lactic Acid Calcium AST ALT Alkaline Phosphatase CK-MB (CK-2) CK-MB (CK-2) Rel Index Total Protein Albumin TSH Urine WBC (Auto) Salicylates 02/27/17 02/27/17 02/27/17 05:27 13:51 21:48 WBC RBC Hgb Hct MCV MCH RDW Plt Count Lymph % (Auto) [place] % (Auto) Eos % (Auto) [place] # Seg Neutrophils % Seg Neuts % (Manual) Lymphocytes % (Manual) Seg Neutrophils # Seg Neutrophils # Man Lymphocytes # (Manual) APTT POC ABG pH ABG pH POC ABG pCO2 POC ABG pO2 ABG pO2 ABG HCO3 ABG Base Excess ABG Hemoglobin VBG pH Oxyhemoglobin Sodium Potassium Chloride Carbon Dioxide BUN Creatinine Glucose POC Glucose 217 H 239 H 254 H Lactic Acid Calcium AST ALT Alkaline Phosphatase CK-MB (CK-2) CK-MB (CK-2) Rel Index Total Protein Albumin TSH Urine WBC (Auto) Salicylates 02/28/17 02/28/17 02/28/17 05:38 11:00 19:44 WBC RBC Hgb Hct MCV MCH RDW Plt Count Lymph % (Auto) [place] % (Auto) Eos % (Auto) [place] # Seg Neutrophils % Seg Neuts % (Manual) Lymphocytes % (Manual) Seg Neutrophils # Seg Neutrophils # Man Lymphocytes # (Manual) APTT POC ABG pH ABG pH POC ABG pCO2 POC ABG pO2 ABG pO2 ABG HCO3 ABG Base Excess ABG Hemoglobin VBG pH Oxyhemoglobin Sodium Potassium Chloride Carbon Dioxide BUN Creatinine Glucose POC Glucose 325 H 203 H 116 H Lactic Acid Calcium AST ALT Alkaline Phosphatase CK-MB (CK-2) CK-MB (CK-2) Rel Index Total Protein Albumin TSH Urine WBC (Auto) Salicylates 03/01/17 03/01/17 03/01/17 00:08 05:31 12:17 WBC RBC Hgb Hct MCV MCH RDW Plt Count Lymph % (Auto) [place] % (Auto) Eos % (Auto) [place] # Seg Neutrophils % Seg Neuts % (Manual) Lymphocytes % (Manual) Seg Neutrophils # Seg Neutrophils # Man Lymphocytes # (Manual) APTT POC ABG pH ABG pH POC ABG pCO2 POC ABG pO2 ABG pO2 ABG HCO3 ABG Base Excess ABG Hemoglobin VBG pH Oxyhemoglobin Sodium Potassium Chloride Carbon Dioxide BUN Creatinine Glucose POC Glucose 202 H 183 H 184 H Lactic Acid Calcium AST ALT Alkaline Phosphatase CK-MB (CK-2) CK-MB (CK-2) Rel Index Total Protein Albumin TSH Urine WBC (Auto) Salicylates 03/02/17 03/02/17 03/02/17 00:12 05:58 18:22 WBC RBC Hgb Hct MCV MCH RDW Plt Count Lymph % (Auto) [place] % (Auto) Eos % (Auto) [place] # Seg Neutrophils % Seg Neuts % (Manual) Lymphocytes % (Manual) Seg Neutrophils # Seg Neutrophils # Man Lymphocytes # (Manual) APTT POC ABG pH ABG pH POC ABG pCO2 POC ABG pO2 ABG pO2 ABG HCO3 ABG Base Excess ABG Hemoglobin VBG pH Oxyhemoglobin Sodium Potassium Chloride Carbon Dioxide BUN Creatinine Glucose POC Glucose 117 H 176 H 156 H Lactic Acid Calcium AST ALT Alkaline Phosphatase CK-MB (CK-2) CK-MB (CK-2) Rel Index Total Protein Albumin TSH Urine WBC (Auto) Salicylates 03/02/17 03/03/17 03/03/17 23:51 05:44 11:32 WBC RBC Hgb Hct MCV MCH RDW Plt Count Lymph % (Auto) [place] % (Auto) Eos % (Auto) [place] # Seg Neutrophils % Seg Neuts % (Manual) Lymphocytes % (Manual) Seg Neutrophils # Seg Neutrophils # Man Lymphocytes # (Manual) APTT POC ABG pH ABG pH POC ABG pCO2 POC ABG pO2 ABG pO2 ABG HCO3 ABG Base Excess ABG Hemoglobin VBG pH Oxyhemoglobin Sodium Potassium Chloride Carbon Dioxide BUN Creatinine Glucose POC Glucose 211 H 117 H 133 H Lactic Acid Calcium AST ALT Alkaline Phosphatase CK-MB (CK-2) CK-MB (CK-2) Rel Index Total Protein Albumin TSH Urine WBC (Auto) Salicylates 03/03/17 03/03/17 03/04/17 17:43 23:17 05:30 WBC RBC Hgb Hct MCV MCH RDW Plt Count Lymph % (Auto) [place] % (Auto) Eos % (Auto) [place] # Seg Neutrophils % Seg Neuts % (Manual) Lymphocytes % (Manual) Seg Neutrophils # Seg Neutrophils # Man Lymphocytes # (Manual) APTT POC ABG pH ABG pH POC ABG pCO2 POC ABG pO2 ABG pO2 ABG HCO3 ABG Base Excess ABG Hemoglobin VBG pH Oxyhemoglobin Sodium Potassium Chloride Carbon Dioxide BUN Creatinine Glucose POC Glucose 206 H 170 H 126 H Lactic Acid Calcium AST ALT Alkaline Phosphatase CK-MB (CK-2) CK-MB (CK-2) Rel Index Total Protein Albumin TSH Urine WBC (Auto) Salicylates 03/04/17 03/04/17 03/05/17 12:17 17:27 05:20 WBC RBC Hgb Hct MCV MCH RDW Plt Count Lymph % (Auto) [place] % (Auto) Eos % (Auto) [place] # Seg Neutrophils % Seg Neuts % (Manual) Lymphocytes % (Manual) Seg Neutrophils # Seg Neutrophils # Man Lymphocytes # (Manual) APTT POC ABG pH ABG pH POC ABG pCO2 POC ABG pO2 ABG pO2 ABG HCO3 ABG Base Excess ABG Hemoglobin VBG pH Oxyhemoglobin Sodium Potassium Chloride Carbon Dioxide BUN Creatinine Glucose POC Glucose 135 H 121 H 185 H Lactic Acid Calcium AST ALT Alkaline Phosphatase CK-MB (CK-2) CK-MB (CK-2) Rel Index Total Protein Albumin TSH Urine WBC (Auto) Salicylates 03/05/17 03/06/17 03/06/17 11:50 11:52 17:34 WBC RBC Hgb Hct MCV MCH RDW Plt Count Lymph % (Auto) [place] % (Auto) Eos % (Auto) [place] # Seg Neutrophils % Seg Neuts % (Manual) Lymphocytes % (Manual) Seg Neutrophils # Seg Neutrophils # Man Lymphocytes # (Manual) APTT POC ABG pH ABG pH POC ABG pCO2 POC ABG pO2 ABG pO2 ABG HCO3 ABG Base Excess ABG Hemoglobin VBG pH Oxyhemoglobin Sodium Potassium Chloride Carbon Dioxide BUN Creatinine Glucose POC Glucose 116 H 133 H 181 H Lactic Acid Calcium AST ALT Alkaline Phosphatase CK-MB (CK-2) CK-MB (CK-2) Rel Index Total Protein Albumin TSH Urine WBC (Auto) Salicylates 03/07/17 03/07/17 03/07/17 05:21 11:36 17:49 WBC RBC Hgb Hct MCV MCH RDW Plt Count Lymph % (Auto) [place] % (Auto) Eos % (Auto) [place] # Seg Neutrophils % Seg Neuts % (Manual) Lymphocytes % (Manual) Seg Neutrophils # Seg Neutrophils # Man Lymphocytes # (Manual) APTT POC ABG pH ABG pH POC ABG pCO2 POC ABG pO2 ABG pO2 ABG HCO3 ABG Base Excess ABG Hemoglobin VBG pH Oxyhemoglobin Sodium Potassium Chloride Carbon Dioxide BUN Creatinine Glucose POC Glucose 159 H 137 H 158 H Lactic Acid Calcium AST ALT Alkaline Phosphatase CK-MB (CK-2) CK-MB (CK-2) Rel Index Total Protein Albumin TSH Urine WBC (Auto) Salicylates 03/08/17 03/08/17 03/08/17 05:51 13:58 23:50 WBC RBC Hgb Hct MCV MCH RDW Plt Count Lymph % (Auto) [place] % (Auto) Eos % (Auto) [place] # Seg Neutrophils % Seg Neuts % (Manual) Lymphocytes % (Manual) Seg Neutrophils # Seg Neutrophils # Man Lymphocytes # (Manual) APTT POC ABG pH ABG pH POC ABG pCO2 POC ABG pO2 ABG pO2 ABG HCO3 ABG Base Excess ABG Hemoglobin VBG pH Oxyhemoglobin Sodium Potassium Chloride Carbon Dioxide BUN Creatinine Glucose POC Glucose 122 H 182 H 114 H Lactic Acid Calcium AST ALT Alkaline Phosphatase CK-MB (CK-2) CK-MB (CK-2) Rel Index Total Protein Albumin TSH Urine WBC (Auto) Salicylates 03/09/17 03/09/17 03/09/17 05:21 05:51 05:51 WBC RBC 3.61 L Hgb 9.5 L Hct 28.3 L MCV 79 L MCH 26 L RDW 17.8 H Plt Count Lymph % (Auto) [place] % (Auto) Eos % (Auto) [place] # Seg Neutrophils % Seg Neuts % (Manual) Lymphocytes % (Manual) Seg Neutrophils # Seg Neutrophils # Man Lymphocytes # (Manual) APTT POC ABG pH ABG pH POC ABG pCO2 POC ABG pO2 ABG pO2 ABG HCO3 ABG Base Excess ABG Hemoglobin VBG pH Oxyhemoglobin Sodium 134 L Potassium Chloride 95.5 L Carbon Dioxide BUN 33 H Creatinine 0.5 L Glucose 143 H POC Glucose 153 H Lactic Acid Calcium AST ALT Alkaline Phosphatase CK-MB (CK-2) CK-MB (CK-2) Rel Index Total Protein Albumin TSH Urine WBC (Auto) Salicylates 03/09/17 03/09/17 03/09/17 12:10 18:13 21:00 WBC RBC Hgb Hct MCV MCH RDW Plt Count Lymph % (Auto) [place] % (Auto) Eos % (Auto) [place] # Seg Neutrophils % Seg Neuts % (Manual) Lymphocytes % (Manual) Seg Neutrophils # Seg Neutrophils # Man Lymphocytes # (Manual) APTT POC ABG pH ABG pH POC ABG pCO2 POC ABG pO2 ABG pO2 ABG HCO3 ABG Base Excess ABG Hemoglobin VBG pH Oxyhemoglobin Sodium Potassium Chloride Carbon Dioxide BUN Creatinine Glucose POC Glucose 203 H 221 H 198 H Lactic Acid Calcium AST ALT Alkaline Phosphatase CK-MB (CK-2) CK-MB (CK-2) Rel Index Total Protein Albumin TSH Urine WBC (Auto) Salicylates 03/09/17 03/10/17 03/10/17 23:58 05:09 05:09 WBC RBC Hgb 10.3 L Hct 30.5 L MCV 78 L MCH 26 L RDW 17.9 H Plt Count Lymph % (Auto) [place] % (Auto) 10.0 H Eos % (Auto) 6.0 H [place] # Seg Neutrophils % Seg Neuts % (Manual) Lymphocytes % (Manual) Seg Neutrophils # Seg Neutrophils # Man Lymphocytes # (Manual) APTT POC ABG pH ABG pH POC ABG pCO2 POC ABG pO2 ABG pO2 ABG HCO3 ABG Base Excess ABG Hemoglobin VBG pH Oxyhemoglobin Sodium 132 L Potassium Chloride 92.2 L Carbon Dioxide BUN 33 H Creatinine 0.5 L Glucose 50 L POC Glucose 167 H Lactic Acid Calcium AST ALT Alkaline Phosphatase CK-MB (CK-2) CK-MB (CK-2) Rel Index Total Protein Albumin TSH Urine WBC (Auto) Salicylates 03/10/17 03/10/17 03/10/17 05:33 05:34 11:48 WBC RBC Hgb Hct MCV MCH RDW Plt Count Lymph % (Auto) [place] % (Auto) Eos % (Auto) [place] # Seg Neutrophils % Seg Neuts % (Manual) Lymphocytes % (Manual) Seg Neutrophils # Seg Neutrophils # Man Lymphocytes # (Manual) APTT POC ABG pH ABG pH POC ABG pCO2 POC ABG pO2 ABG pO2 ABG HCO3 ABG Base Excess ABG Hemoglobin VBG pH Oxyhemoglobin Sodium Potassium Chloride Carbon Dioxide BUN Creatinine Glucose POC Glucose 52 L 53 L 148 H Lactic Acid Calcium AST ALT Alkaline Phosphatase CK-MB (CK-2) CK-MB (CK-2) Rel Index Total Protein Albumin TSH Urine WBC (Auto) Salicylates 03/10/17 03/10/17 03/11/17 17:53 23:47 05:18 WBC RBC Hgb Hct MCV MCH RDW Plt Count Lymph % (Auto) [place] % (Auto) Eos % (Auto) [place] # Seg Neutrophils % Seg Neuts % (Manual) Lymphocytes % (Manual) Seg Neutrophils # Seg Neutrophils # Man Lymphocytes # (Manual) APTT POC ABG pH ABG pH POC ABG pCO2 POC ABG pO2 ABG pO2 ABG HCO3 ABG Base Excess ABG Hemoglobin VBG pH Oxyhemoglobin Sodium Potassium Chloride Carbon Dioxide BUN Creatinine Glucose POC Glucose 189 H 398 H 126 H Lactic Acid Calcium AST ALT Alkaline Phosphatase CK-MB (CK-2) CK-MB (CK-2) Rel Index Total Protein Albumin TSH Urine WBC (Auto) Salicylates 03/11/17 03/11/17 03/11/17 11:53 17:30 23:10 WBC RBC Hgb Hct MCV MCH RDW Plt Count Lymph % (Auto) [place] % (Auto) Eos % (Auto) [place] # Seg Neutrophils % Seg Neuts % (Manual) Lymphocytes % (Manual) Seg Neutrophils # Seg Neutrophils # Man Lymphocytes # (Manual) APTT POC ABG pH ABG pH POC ABG pCO2 POC ABG pO2 ABG pO2 ABG HCO3 ABG Base Excess ABG Hemoglobin VBG pH Oxyhemoglobin Sodium Potassium Chloride Carbon Dioxide BUN Creatinine Glucose POC Glucose 198 H 142 H 244 H Lactic Acid Calcium AST ALT Alkaline Phosphatase CK-MB (CK-2) CK-MB (CK-2) Rel Index Total Protein Albumin TSH Urine WBC (Auto) Salicylates 03/12/17 03/12/17 03/12/17 04:36 11:49 17:23 WBC RBC Hgb Hct MCV MCH RDW Plt Count Lymph % (Auto) [place] % (Auto) Eos % (Auto) [place] # Seg Neutrophils % Seg Neuts % (Manual) Lymphocytes % (Manual) Seg Neutrophils # Seg Neutrophils # Man Lymphocytes # (Manual) APTT POC ABG pH ABG pH POC ABG pCO2 POC ABG pO2 ABG pO2 ABG HCO3 ABG Base Excess ABG Hemoglobin VBG pH Oxyhemoglobin Sodium Potassium Chloride Carbon Dioxide BUN Creatinine Glucose POC Glucose 205 H 197 H 209 H Lactic Acid Calcium AST ALT Alkaline Phosphatase CK-MB (CK-2) CK-MB (CK-2) Rel Index Total Protein Albumin TSH Urine WBC (Auto) Salicylates 03/12/17 03/13/17 03/13/17 23:51 05:32 11:43 WBC RBC Hgb Hct MCV MCH RDW Plt Count Lymph % (Auto) [place] % (Auto) Eos % (Auto) [place] # Seg Neutrophils % Seg Neuts % (Manual) Lymphocytes % (Manual) Seg Neutrophils # Seg Neutrophils # Man Lymphocytes # (Manual) APTT POC ABG pH ABG pH POC ABG pCO2 POC ABG pO2 ABG pO2 ABG HCO3 ABG Base Excess ABG Hemoglobin VBG pH Oxyhemoglobin Sodium Potassium Chloride Carbon Dioxide BUN Creatinine Glucose POC Glucose 210 H 154 H 164 H Lactic Acid Calcium AST ALT Alkaline Phosphatase CK-MB (CK-2) CK-MB (CK-2) Rel Index Total Protein Albumin TSH Urine WBC (Auto) Salicylates 03/13/17 03/13/17 03/14/17 17:11 23:26 05:42 WBC RBC Hgb Hct MCV MCH RDW Plt Count Lymph % (Auto) [place] % (Auto) Eos % (Auto) [place] # Seg Neutrophils % Seg Neuts % (Manual) Lymphocytes % (Manual) Seg Neutrophils # Seg Neutrophils # Man Lymphocytes # (Manual) APTT POC ABG pH ABG pH POC ABG pCO2 POC ABG pO2 ABG pO2 ABG HCO3 ABG Base Excess ABG Hemoglobin VBG pH Oxyhemoglobin Sodium Potassium Chloride Carbon Dioxide BUN Creatinine Glucose POC Glucose 195 H 240 H 230 H Lactic Acid Calcium AST ALT Alkaline Phosphatase CK-MB (CK-2) CK-MB (CK-2) Rel Index Total Protein Albumin TSH Urine WBC (Auto) Salicylates 03/14/17 03/14/17 03/14/17 14:04 17:34 23:42 WBC RBC Hgb Hct MCV MCH RDW Plt Count Lymph % (Auto) [place] % (Auto) Eos % (Auto) [place] # Seg Neutrophils % Seg Neuts % (Manual) Lymphocytes % (Manual) Seg Neutrophils # Seg Neutrophils # Man Lymphocytes # (Manual) APTT POC ABG pH ABG pH POC ABG pCO2 POC ABG pO2 ABG pO2 ABG HCO3 ABG Base Excess ABG Hemoglobin VBG pH Oxyhemoglobin Sodium Potassium Chloride Carbon Dioxide BUN Creatinine Glucose POC Glucose 227 H 186 H 225 H Lactic Acid Calcium AST ALT Alkaline Phosphatase CK-MB (CK-2) CK-MB (CK-2) Rel Index Total Protein Albumin TSH Urine WBC (Auto) Salicylates 03/15/17 03/15/17 03/15/17 05:21 17:13 21:37 WBC RBC Hgb Hct MCV MCH RDW Plt Count Lymph % (Auto) [place] % (Auto) Eos % (Auto) [place] # Seg Neutrophils % Seg Neuts % (Manual) Lymphocytes % (Manual) Seg Neutrophils # Seg Neutrophils # Man Lymphocytes # (Manual) APTT POC ABG pH ABG pH POC ABG pCO2 POC ABG pO2 ABG pO2 ABG HCO3 ABG Base Excess ABG Hemoglobin VBG pH Oxyhemoglobin Sodium Potassium Chloride Carbon Dioxide BUN Creatinine Glucose POC Glucose 244 H 203 H 216 H Lactic Acid Calcium AST ALT Alkaline Phosphatase CK-MB (CK-2) CK-MB (CK-2) Rel Index Total Protein Albumin TSH Urine WBC (Auto) Salicylates 03/16/17 03/16/17 03/16/17 05:52 18:07 21:54 WBC RBC Hgb Hct MCV MCH RDW Plt Count Lymph % (Auto) [place] % (Auto) Eos % (Auto) [place] # Seg Neutrophils % Seg Neuts % (Manual) Lymphocytes % (Manual) Seg Neutrophils # Seg Neutrophils # Man Lymphocytes # (Manual) APTT POC ABG pH ABG pH POC ABG pCO2 POC ABG pO2 ABG pO2 ABG HCO3 ABG Base Excess ABG Hemoglobin VBG pH Oxyhemoglobin Sodium Potassium Chloride Carbon Dioxide BUN Creatinine Glucose POC Glucose 248 H 254 H 244 H Lactic Acid Calcium AST ALT Alkaline Phosphatase CK-MB (CK-2) CK-MB (CK-2) Rel Index Total Protein Albumin TSH Urine WBC (Auto) Salicylates 03/17/17 03/17/17 03/17/17 07:07 07:42 07:43 WBC RBC Hgb 9.7 L Hct 29.1 L MCV 78 L MCH 26 L RDW 17.4 H Plt Count Lymph % (Auto) [place] % (Auto) Eos % (Auto) [place] # Seg Neutrophils % Seg Neuts % (Manual) Lymphocytes % (Manual) Seg Neutrophils # Seg Neutrophils # Man Lymphocytes # (Manual) APTT POC ABG pH ABG pH POC ABG pCO2 POC ABG pO2 ABG pO2 ABG HCO3 ABG Base Excess ABG Hemoglobin VBG pH Oxyhemoglobin Sodium Potassium Chloride 96.6 L Carbon Dioxide BUN 30 H Creatinine 0.5 L Glucose 251 H POC Glucose 222 H Lactic Acid Calcium AST ALT Alkaline Phosphatase CK-MB (CK-2) CK-MB (CK-2) Rel Index Total Protein Albumin TSH Urine WBC (Auto) Salicylates 03/17/17 03/17/17 03/18/17 14:08 21:20 14:24 WBC RBC Hgb Hct MCV MCH RDW Plt Count Lymph % (Auto) [place] % (Auto) Eos % (Auto) [place] # Seg Neutrophils % Seg Neuts % (Manual) Lymphocytes % (Manual) Seg Neutrophils # Seg Neutrophils # Man Lymphocytes # (Manual) APTT POC ABG pH ABG pH POC ABG pCO2 POC ABG pO2 ABG pO2 ABG HCO3 ABG Base Excess ABG Hemoglobin VBG pH Oxyhemoglobin Sodium Potassium Chloride Carbon Dioxide BUN Creatinine Glucose POC Glucose 281 H 239 H 195 H Lactic Acid Calcium AST ALT Alkaline Phosphatase CK-MB (CK-2) CK-MB (CK-2) Rel Index Total Protein Albumin TSH Urine WBC (Auto) Salicylates 03/18/17 03/19/17 03/19/17 21:37 04:57 14:23 WBC RBC Hgb Hct MCV MCH RDW Plt Count Lymph % (Auto) [place] % (Auto) Eos % (Auto) [place] # Seg Neutrophils % Seg Neuts % (Manual) Lymphocytes % (Manual) Seg Neutrophils # Seg Neutrophils # Man Lymphocytes # (Manual) APTT POC ABG pH ABG pH POC ABG pCO2 POC ABG pO2 ABG pO2 ABG HCO3 ABG Base Excess ABG Hemoglobin VBG pH Oxyhemoglobin Sodium Potassium Chloride Carbon Dioxide BUN Creatinine Glucose POC Glucose 227 H 205 H 277 H Lactic Acid Calcium AST ALT Alkaline Phosphatase CK-MB (CK-2) CK-MB (CK-2) Rel Index Total Protein Albumin TSH Urine WBC (Auto) Salicylates 03/19/17 03/19/17 03/20/17 20:31 21:47 04:55 WBC RBC Hgb Hct MCV MCH RDW Plt Count Lymph % (Auto) [place] % (Auto) Eos % (Auto) [place] # Seg Neutrophils % Seg Neuts % (Manual) Lymphocytes % (Manual) Seg Neutrophils # Seg Neutrophils # Man Lymphocytes # (Manual) APTT POC ABG pH ABG pH POC ABG pCO2 POC ABG pO2 ABG pO2 ABG HCO3 ABG Base Excess ABG Hemoglobin VBG pH Oxyhemoglobin Sodium Potassium Chloride Carbon Dioxide BUN Creatinine Glucose POC Glucose 256 H 270 H 202 H Lactic Acid Calcium AST ALT Alkaline Phosphatase CK-MB (CK-2) CK-MB (CK-2) Rel Index Total Protein Albumin TSH Urine WBC (Auto) Salicylates 03/20/17 03/20/17 03/21/17 14:09 21:40 05:09 WBC RBC Hgb Hct MCV MCH RDW Plt Count Lymph % (Auto) [place] % (Auto) Eos % (Auto) [place] # Seg Neutrophils % Seg Neuts % (Manual) Lymphocytes % (Manual) Seg Neutrophils # Seg Neutrophils # Man Lymphocytes # (Manual) APTT POC ABG pH ABG pH POC ABG pCO2 POC ABG pO2 ABG pO2 ABG HCO3 ABG Base Excess ABG Hemoglobin VBG pH Oxyhemoglobin Sodium Potassium Chloride Carbon Dioxide BUN Creatinine Glucose POC Glucose 200 H 214 H 233 H Lactic Acid Calcium AST ALT Alkaline Phosphatase CK-MB (CK-2) CK-MB (CK-2) Rel Index Total Protein Albumin TSH Urine WBC (Auto) Salicylates 03/21/17 03/21/17 03/22/17 14:06 21:26 05:43 WBC RBC Hgb Hct MCV MCH RDW Plt Count Lymph % (Auto) [place] % (Auto) Eos % (Auto) [place] # Seg Neutrophils % Seg Neuts % (Manual) Lymphocytes % (Manual) Seg Neutrophils # Seg Neutrophils # Man Lymphocytes # (Manual) APTT POC ABG pH ABG pH POC ABG pCO2 POC ABG pO2 ABG pO2 ABG HCO3 ABG Base Excess ABG Hemoglobin VBG pH Oxyhemoglobin Sodium Potassium Chloride Carbon Dioxide BUN Creatinine Glucose POC Glucose 250 H 155 H 251 H Lactic Acid Calcium AST ALT Alkaline Phosphatase CK-MB (CK-2) CK-MB (CK-2) Rel Index Total Protein Albumin TSH Urine WBC (Auto) Salicylates 03/22/17 03/22/17 03/23/17 13:46 21:16 00:23 WBC RBC Hgb Hct MCV MCH RDW Plt Count Lymph % (Auto) [place] % (Auto) Eos % (Auto) [place] # Seg Neutrophils % Seg Neuts % (Manual) Lymphocytes % (Manual) Seg Neutrophils # Seg Neutrophils # Man Lymphocytes # (Manual) APTT POC ABG pH ABG pH POC ABG pCO2 POC ABG pO2 ABG pO2 ABG HCO3 ABG Base Excess ABG Hemoglobin VBG pH Oxyhemoglobin Sodium Potassium Chloride Carbon Dioxide BUN Creatinine Glucose POC Glucose 269 H 197 H 126 H Lactic Acid Calcium AST ALT Alkaline Phosphatase CK-MB (CK-2) CK-MB (CK-2) Rel Index Total Protein Albumin TSH Urine WBC (Auto) Salicylates 03/23/17 03/23/17 03/23/17 05:39 14:06 21:39 WBC RBC Hgb Hct MCV MCH RDW Plt Count Lymph % (Auto) [place] % (Auto) Eos % (Auto) [place] # Seg Neutrophils % Seg Neuts % (Manual) Lymphocytes % (Manual) Seg Neutrophils # Seg Neutrophils # Man Lymphocytes # (Manual) APTT POC ABG pH ABG pH POC ABG pCO2 POC ABG pO2 ABG pO2 ABG HCO3 ABG Base Excess ABG Hemoglobin VBG pH Oxyhemoglobin Sodium Potassium Chloride Carbon Dioxide BUN Creatinine Glucose POC Glucose 234 H 241 H 248 H Lactic Acid Calcium AST ALT Alkaline Phosphatase CK-MB (CK-2) CK-MB (CK-2) Rel Index Total Protein Albumin TSH Urine WBC (Auto) Salicylates 03/24/17 03/24/17 03/25/17 05:06 21:46 05:38 WBC RBC Hgb Hct MCV MCH RDW Plt Count Lymph % (Auto) [place] % (Auto) Eos % (Auto) [place] # Seg Neutrophils % Seg Neuts % (Manual) Lymphocytes % (Manual) Seg Neutrophils # Seg Neutrophils # Man Lymphocytes # (Manual) APTT POC ABG pH ABG pH POC ABG pCO2 POC ABG pO2 ABG pO2 ABG HCO3 ABG Base Excess ABG Hemoglobin VBG pH Oxyhemoglobin Sodium Potassium Chloride Carbon Dioxide BUN Creatinine Glucose POC Glucose 232 H 276 H 242 H Lactic Acid Calcium AST ALT Alkaline Phosphatase CK-MB (CK-2) CK-MB (CK-2) Rel Index Total Protein Albumin TSH Urine WBC (Auto) Salicylates 03/25/17 03/25/17 03/26/17 14:30 23:14 13:53 WBC RBC Hgb Hct MCV MCH RDW Plt Count Lymph % (Auto) [place] % (Auto) Eos % (Auto) [place] # Seg Neutrophils % Seg Neuts % (Manual) Lymphocytes % (Manual) Seg Neutrophils # Seg Neutrophils # Man Lymphocytes # (Manual) APTT POC ABG pH ABG pH POC ABG pCO2 POC ABG pO2 ABG pO2 ABG HCO3 ABG Base Excess ABG Hemoglobin VBG pH Oxyhemoglobin Sodium Potassium Chloride Carbon Dioxide BUN Creatinine Glucose POC Glucose 246 H 208 H 195 H Lactic Acid Calcium AST ALT Alkaline Phosphatase CK-MB (CK-2) CK-MB (CK-2) Rel Index Total Protein Albumin TSH Urine WBC (Auto) Salicylates 03/26/17 03/27/17 03/27/17 21:58 05:18 14:57 WBC RBC Hgb Hct MCV MCH RDW Plt Count Lymph % (Auto) [place] % (Auto) Eos % (Auto) [place] # Seg Neutrophils % Seg Neuts % (Manual) Lymphocytes % (Manual) Seg Neutrophils # Seg Neutrophils # Man Lymphocytes # (Manual) APTT POC ABG pH ABG pH POC ABG pCO2 POC ABG pO2 ABG pO2 ABG HCO3 ABG Base Excess ABG Hemoglobin VBG pH Oxyhemoglobin Sodium Potassium Chloride Carbon Dioxide BUN Creatinine Glucose POC Glucose 241 H 199 H 269 H Lactic Acid Calcium AST ALT Alkaline Phosphatase CK-MB (CK-2) CK-MB (CK-2) Rel Index Total Protein Albumin TSH Urine WBC (Auto) Salicylates 03/27/17 03/28/17 03/28/17 21:33 13:52 21:29 WBC RBC Hgb Hct MCV MCH RDW Plt Count Lymph % (Auto) [place] % (Auto) Eos % (Auto) [place] # Seg Neutrophils % Seg Neuts % (Manual) Lymphocytes % (Manual) Seg Neutrophils # Seg Neutrophils # Man Lymphocytes # (Manual) APTT POC ABG pH ABG pH POC ABG pCO2 POC ABG pO2 ABG pO2 ABG HCO3 ABG Base Excess ABG Hemoglobin VBG pH Oxyhemoglobin Sodium Potassium Chloride Carbon Dioxide BUN Creatinine Glucose POC Glucose 214 H 243 H 286 H Lactic Acid Calcium AST ALT Alkaline Phosphatase CK-MB (CK-2) CK-MB (CK-2) Rel Index Total Protein Albumin TSH Urine WBC (Auto) Salicylates 03/29/17 03/29/17 03/29/17 04:32 04:32 13:58 WBC RBC Hgb 10.6 L Hct 32.9 L MCV 78 L MCH 25 L RDW 17.6 H Plt Count Lymph % (Auto) 38.0 H [place] % (Auto) 9.7 H Eos % (Auto) [place] # Seg Neutrophils % Seg Neuts % (Manual) Lymphocytes % (Manual) Seg Neutrophils # Seg Neutrophils # Man Lymphocytes # (Manual) APTT POC ABG pH ABG pH POC ABG pCO2 POC ABG pO2 ABG pO2 ABG HCO3 ABG Base Excess ABG Hemoglobin VBG pH Oxyhemoglobin Sodium 132 L Potassium Chloride 94.0 L Carbon Dioxide BUN 28 H Creatinine 0.5 L Glucose 236 H POC Glucose 171 H Lactic Acid Calcium AST ALT 71 H Alkaline Phosphatase 391 H CK-MB (CK-2) CK-MB (CK-2) Rel Index Total Protein 8.3 H Albumin 2.9 L TSH Urine WBC (Auto) Salicylates 03/29/17 03/30/17 03/30/17 20:59 06:07 11:52 WBC RBC Hgb Hct MCV MCH RDW Plt Count Lymph % (Auto) [place] % (Auto) Eos % (Auto) [place] # Seg Neutrophils % Seg Neuts % (Manual) Lymphocytes % (Manual) Seg Neutrophils # Seg Neutrophils # Man Lymphocytes # (Manual) APTT POC ABG pH ABG pH POC ABG pCO2 POC ABG pO2 ABG pO2 ABG HCO3 ABG Base Excess ABG Hemoglobin VBG pH Oxyhemoglobin Sodium Potassium Chloride Carbon Dioxide BUN Creatinine Glucose POC Glucose 215 H 259 H 197 H Lactic Acid Calcium AST ALT Alkaline Phosphatase CK-MB (CK-2) CK-MB (CK-2) Rel Index Total Protein Albumin TSH Urine WBC (Auto) Salicylates 12/20/17 12/21/17 12/21/17 21:34 05:42 14:34 WBC RBC Hgb Hct MCV MCH RDW Plt Count Lymph % (Auto) [place] % (Auto) Eos % (Auto) [place] # Seg Neutrophils % Seg Neuts % (Manual) Lymphocytes % (Manual) Seg Neutrophils # Seg Neutrophils # Man Lymphocytes # (Manual) APTT POC ABG pH ABG pH POC ABG pCO2 POC ABG pO2 ABG pO2 ABG HCO3 ABG Base Excess ABG Hemoglobin VBG pH Oxyhemoglobin Sodium Potassium Chloride Carbon Dioxide BUN Creatinine Glucose POC Glucose 207 H 184 H 213 H Lactic Acid Calcium AST ALT Alkaline Phosphatase CK-MB (CK-2) CK-MB (CK-2) Rel Index Total Protein Albumin TSH Urine WBC (Auto) Salicylates 03/31/17 04/01/17 04/01/17 21:32 05:53 13:48 WBC RBC Hgb Hct MCV MCH RDW Plt Count Lymph % (Auto) [place] % (Auto) Eos % (Auto) [place] # Seg Neutrophils % Seg Neuts % (Manual) Lymphocytes % (Manual) Seg Neutrophils # Seg Neutrophils # Man Lymphocytes # (Manual) APTT POC ABG pH ABG pH POC ABG pCO2 POC ABG pO2 ABG pO2 ABG HCO3 ABG Base Excess ABG Hemoglobin VBG pH Oxyhemoglobin Sodium Potassium Chloride Carbon Dioxide BUN Creatinine Glucose POC Glucose 249 H 225 H 256 H Lactic Acid Calcium AST ALT Alkaline Phosphatase CK-MB (CK-2) CK-MB (CK-2) Rel Index Total Protein Albumin TSH Urine WBC (Auto) Salicylates 04/01/17 04/02/17 04/02/17 21:34 05:32 14:05 WBC RBC Hgb Hct MCV MCH RDW Plt Count Lymph % (Auto) [place] % (Auto) Eos % (Auto) [place] # Seg Neutrophils % Seg Neuts % (Manual) Lymphocytes % (Manual) Seg Neutrophils # Seg Neutrophils # Man Lymphocytes # (Manual) APTT POC ABG pH ABG pH POC ABG pCO2 POC ABG pO2 ABG pO2 ABG HCO3 ABG Base Excess ABG Hemoglobin VBG pH Oxyhemoglobin Sodium Potassium Chloride Carbon Dioxide BUN Creatinine Glucose POC Glucose 292 H 220 H 187 H Lactic Acid Calcium AST ALT Alkaline Phosphatase CK-MB (CK-2) CK-MB (CK-2) Rel Index Total Protein Albumin TSH Urine WBC (Auto) Salicylates 04/02/17 04/03/17 04/03/17 21:57 04:49 14:12 WBC RBC Hgb Hct MCV MCH RDW Plt Count Lymph % (Auto) [place] % (Auto) Eos % (Auto) [place] # Seg Neutrophils % Seg Neuts % (Manual) Lymphocytes % (Manual) Seg Neutrophils # Seg Neutrophils # Man Lymphocytes # (Manual) APTT POC ABG pH ABG pH POC ABG pCO2 POC ABG pO2 ABG pO2 ABG HCO3 ABG Base Excess ABG Hemoglobin VBG pH Oxyhemoglobin Sodium Potassium Chloride Carbon Dioxide BUN Creatinine Glucose POC Glucose 285 H 256 H 197 H Lactic Acid Calcium AST ALT Alkaline Phosphatase CK-MB (CK-2) CK-MB (CK-2) Rel Index Total Protein Albumin TSH Urine WBC (Auto) Salicylates 04/03/17 04/04/17 04/04/17 21:11 05:20 13:18 WBC RBC Hgb Hct MCV MCH RDW Plt Count Lymph % (Auto) [place] % (Auto) Eos % (Auto) [place] # Seg Neutrophils % Seg Neuts % (Manual) Lymphocytes % (Manual) Seg Neutrophils # Seg Neutrophils # Man Lymphocytes # (Manual) APTT POC ABG pH ABG pH POC ABG pCO2 POC ABG pO2 ABG pO2 ABG HCO3 ABG Base Excess ABG Hemoglobin VBG pH Oxyhemoglobin Sodium Potassium Chloride Carbon Dioxide BUN Creatinine Glucose POC Glucose 166 H 228 H 252 H Lactic Acid Calcium AST ALT Alkaline Phosphatase CK-MB (CK-2) CK-MB (CK-2) Rel Index Total Protein Albumin TSH Urine WBC (Auto) Salicylates 04/04/17 04/05/17 04/05/17 21:51 06:14 09:54 WBC RBC Hgb Hct MCV MCH RDW Plt Count Lymph % (Auto) [place] % (Auto) Eos % (Auto) [place] # Seg Neutrophils % Seg Neuts % (Manual) Lymphocytes % (Manual) Seg Neutrophils # Seg Neutrophils # Man Lymphocytes # (Manual) APTT POC ABG pH ABG pH POC ABG pCO2 POC ABG pO2 ABG pO2 ABG HCO3 ABG Base Excess ABG Hemoglobin VBG pH Oxyhemoglobin Sodium Potassium Chloride Carbon Dioxide BUN Creatinine Glucose POC Glucose 252 H 152 H 181 H Lactic Acid Calcium AST ALT Alkaline Phosphatase CK-MB (CK-2) CK-MB (CK-2) Rel Index Total Protein Albumin TSH Urine WBC (Auto) Salicylates 04/05/17 04/05/17 04/05/17 14:49 17:34 21:38 WBC RBC Hgb Hct MCV MCH RDW Plt Count Lymph % (Auto) [place] % (Auto) Eos % (Auto) [place] # Seg Neutrophils % Seg Neuts % (Manual) Lymphocytes % (Manual) Seg Neutrophils # Seg Neutrophils # Man Lymphocytes # (Manual) APTT POC ABG pH ABG pH POC ABG pCO2 POC ABG pO2 ABG pO2 ABG HCO3 ABG Base Excess ABG Hemoglobin VBG pH Oxyhemoglobin Sodium Potassium Chloride Carbon Dioxide BUN Creatinine Glucose POC Glucose 219 H 268 H 278 H Lactic Acid Calcium AST ALT Alkaline Phosphatase CK-MB (CK-2) CK-MB (CK-2) Rel Index Total Protein Albumin TSH Urine WBC (Auto) Salicylates 04/06/17 04/06/17 04/07/17 15:04 22:14 05:09 WBC RBC Hgb Hct MCV MCH RDW Plt Count Lymph % (Auto) [place] % (Auto) Eos % (Auto) [place] # Seg Neutrophils % Seg Neuts % (Manual) Lymphocytes % (Manual) Seg Neutrophils # Seg Neutrophils # Man Lymphocytes # (Manual) APTT POC ABG pH ABG pH POC ABG pCO2 POC ABG pO2 ABG pO2 ABG HCO3 ABG Base Excess ABG Hemoglobin VBG pH Oxyhemoglobin Sodium Potassium Chloride Carbon Dioxide BUN Creatinine Glucose POC Glucose 285 H 106 H 334 H Lactic Acid Calcium AST ALT Alkaline Phosphatase CK-MB (CK-2) CK-MB (CK-2) Rel Index Total Protein Albumin TSH Urine WBC (Auto) Salicylates 04/07/17 04/07/17 04/08/17 14:45 21:48 05:28 WBC RBC Hgb Hct MCV MCH RDW Plt Count Lymph % (Auto) [place] % (Auto) Eos % (Auto) [place] # Seg Neutrophils % Seg Neuts % (Manual) Lymphocytes % (Manual) Seg Neutrophils # Seg Neutrophils # Man Lymphocytes # (Manual) APTT POC ABG pH ABG pH POC ABG pCO2 POC ABG pO2 ABG pO2 ABG HCO3 ABG Base Excess ABG Hemoglobin VBG pH Oxyhemoglobin Sodium Potassium Chloride Carbon Dioxide BUN Creatinine Glucose POC Glucose 173 H 304 H 314 H Lactic Acid Calcium AST ALT Alkaline Phosphatase CK-MB (CK-2) CK-MB (CK-2) Rel Index Total Protein Albumin TSH Urine WBC (Auto) Salicylates 12/04/08/17 04/08/17 15:57 16:17 22:21 WBC RBC Hgb Hct MCV MCH RDW Plt Count Lymph % (Auto) [place] % (Auto) Eos % (Auto) [place] # Seg Neutrophils % Seg Neuts % (Manual) Lymphocytes % (Manual) Seg Neutrophils # Seg Neutrophils # Man Lymphocytes # (Manual) APTT POC ABG pH ABG pH POC ABG pCO2 POC ABG pO2 ABG pO2 ABG HCO3 ABG Base Excess ABG Hemoglobin VBG pH Oxyhemoglobin Sodium Potassium Chloride Carbon Dioxide BUN Creatinine Glucose POC Glucose 356 H 337 H 323 H Lactic Acid Calcium AST ALT Alkaline Phosphatase CK-MB (CK-2) CK-MB (CK-2) Rel Index Total Protein Albumin TSH Urine WBC (Auto) Salicylates 04/09/17 04/09/17 04/09/17 06:19 15:30 21:52 WBC RBC Hgb Hct MCV MCH RDW Plt Count Lymph % (Auto) [place] % (Auto) Eos % (Auto) [place] # Seg Neutrophils % Seg Neuts % (Manual) Lymphocytes % (Manual) Seg Neutrophils # Seg Neutrophils # Man Lymphocytes # (Manual) APTT POC ABG pH ABG pH POC ABG pCO2 POC ABG pO2 ABG pO2 ABG HCO3 ABG Base Excess ABG Hemoglobin VBG pH Oxyhemoglobin Sodium Potassium Chloride Carbon Dioxide BUN Creatinine Glucose POC Glucose 340 H 332 H 341 H Lactic Acid Calcium AST ALT Alkaline Phosphatase CK-MB (CK-2) CK-MB (CK-2) Rel Index Total Protein Albumin TSH Urine WBC (Auto) Salicylates 04/10/17 04/10/17 04/10/17 01:53 05:33 17:40 WBC RBC Hgb Hct MCV MCH RDW Plt Count Lymph % (Auto) [place] % (Auto) Eos % (Auto) [place] # Seg Neutrophils % Seg Neuts % (Manual) Lymphocytes % (Manual) Seg Neutrophils # Seg Neutrophils # Man Lymphocytes # (Manual) APTT POC ABG pH ABG pH POC ABG pCO2 POC ABG pO2 ABG pO2 ABG HCO3 ABG Base Excess ABG Hemoglobin VBG pH Oxyhemoglobin Sodium Potassium Chloride Carbon Dioxide BUN Creatinine Glucose POC Glucose 261 H 277 H 304 H Lactic Acid Calcium AST ALT Alkaline Phosphatase CK-MB (CK-2) CK-MB (CK-2) Rel Index Total Protein Albumin TSH Urine WBC (Auto) Salicylates 04/10/17 04/11/17 04/11/17 21:29 05:28 14:02 WBC RBC Hgb Hct MCV MCH RDW Plt Count Lymph % (Auto) [place] % (Auto) Eos % (Auto) [place] # Seg Neutrophils % Seg Neuts % (Manual) Lymphocytes % (Manual) Seg Neutrophils # Seg Neutrophils # Man Lymphocytes # (Manual) APTT POC ABG pH ABG pH POC ABG pCO2 POC ABG pO2 ABG pO2 ABG HCO3 ABG Base Excess ABG Hemoglobin VBG pH Oxyhemoglobin Sodium Potassium Chloride Carbon Dioxide BUN Creatinine Glucose POC Glucose 361 H 204 H 236 H Lactic Acid Calcium AST ALT Alkaline Phosphatase CK-MB (CK-2) CK-MB (CK-2) Rel Index Total Protein Albumin TSH Urine WBC (Auto) Salicylates 04/11/17 04/12/17 04/12/17 21:43 05:00 11:53 WBC RBC Hgb Hct MCV MCH RDW Plt Count Lymph % (Auto) [place] % (Auto) Eos % (Auto) [place] # Seg Neutrophils % Seg Neuts % (Manual) Lymphocytes % (Manual) Seg Neutrophils # Seg Neutrophils # Man Lymphocytes # (Manual) APTT POC ABG pH ABG pH POC ABG pCO2 POC ABG pO2 ABG pO2 ABG HCO3 ABG Base Excess ABG Hemoglobin VBG pH Oxyhemoglobin Sodium Potassium Chloride Carbon Dioxide BUN Creatinine Glucose POC Glucose 287 H 294 H 265 H Lactic Acid Calcium AST ALT Alkaline Phosphatase CK-MB (CK-2) CK-MB (CK-2) Rel Index Total Protein Albumin TSH Urine WBC (Auto) Salicylates 04/12/17 04/12/17 04/13/17 21:21 23:44 06:05 WBC RBC Hgb Hct MCV MCH RDW Plt Count Lymph % (Auto) [place] % (Auto) Eos % (Auto) [place] # Seg Neutrophils % Seg Neuts % (Manual) Lymphocytes % (Manual) Seg Neutrophils # Seg Neutrophils # Man Lymphocytes # (Manual) APTT POC ABG pH ABG pH POC ABG pCO2 POC ABG pO2 ABG pO2 ABG HCO3 ABG Base Excess ABG Hemoglobin VBG pH Oxyhemoglobin Sodium Potassium Chloride Carbon Dioxide BUN Creatinine Glucose POC Glucose 289 H 348 H 326 H Lactic Acid Calcium AST ALT Alkaline Phosphatase CK-MB (CK-2) CK-MB (CK-2) Rel Index Total Protein Albumin TSH Urine WBC (Auto) Salicylates 04/13/17 04/13/17 04/14/17 13:54 21:15 05:49 WBC RBC Hgb Hct MCV MCH RDW Plt Count Lymph % (Auto) [place] % (Auto) Eos % (Auto) [place] # Seg Neutrophils % Seg Neuts % (Manual) Lymphocytes % (Manual) Seg Neutrophils # Seg Neutrophils # Man Lymphocytes # (Manual) APTT POC ABG pH ABG pH POC ABG pCO2 POC ABG pO2 ABG pO2 ABG HCO3 ABG Base Excess ABG Hemoglobin VBG pH Oxyhemoglobin Sodium Potassium Chloride Carbon Dioxide BUN Creatinine Glucose POC Glucose 326 H 263 H 319 H Lactic Acid Calcium AST ALT Alkaline Phosphatase CK-MB (CK-2) CK-MB (CK-2) Rel Index Total Protein Albumin TSH Urine WBC (Auto) Salicylates 04/14/17 04/14/17 04/15/17 13:26 23:13 14:24 WBC RBC Hgb Hct MCV MCH RDW Plt Count Lymph % (Auto) [place] % (Auto) Eos % (Auto) [place] # Seg Neutrophils % Seg Neuts % (Manual) Lymphocytes % (Manual) Seg Neutrophils # Seg Neutrophils # Man Lymphocytes # (Manual) APTT POC ABG pH ABG pH POC ABG pCO2 POC ABG pO2 ABG pO2 ABG HCO3 ABG Base Excess ABG Hemoglobin VBG pH Oxyhemoglobin Sodium Potassium Chloride Carbon Dioxide BUN Creatinine Glucose POC Glucose 207 H 365 H 308 H Lactic Acid Calcium AST ALT Alkaline Phosphatase CK-MB (CK-2) CK-MB (CK-2) Rel Index Total Protein Albumin TSH Urine WBC (Auto) Salicylates 04/15/17 04/15/17 04/15/17 21:00 22:18 23:12 WBC RBC Hgb Hct MCV MCH RDW Plt Count Lymph % (Auto) [place] % (Auto) Eos % (Auto) [place] # Seg Neutrophils % Seg Neuts % (Manual) Lymphocytes % (Manual) Seg Neutrophils # Seg Neutrophils # Man Lymphocytes # (Manual) APTT POC ABG pH ABG pH POC ABG pCO2 POC ABG pO2 ABG pO2 ABG HCO3 ABG Base Excess ABG Hemoglobin VBG pH Oxyhemoglobin Sodium Potassium Chloride Carbon Dioxide BUN Creatinine Glucose POC Glucose 407 H 287 H 325 H Lactic Acid Calcium AST ALT Alkaline Phosphatase CK-MB (CK-2) CK-MB (CK-2) Rel Index Total Protein Albumin TSH Urine WBC (Auto) Salicylates 04/16/17 04/16/17 04/16/17 05:30 10:07 14:26 WBC RBC Hgb Hct MCV MCH RDW Plt Count Lymph % (Auto) [place] % (Auto) Eos % (Auto) [place] # Seg Neutrophils % Seg Neuts % (Manual) Lymphocytes % (Manual) Seg Neutrophils # Seg Neutrophils # Man Lymphocytes # (Manual) APTT POC ABG pH ABG pH POC ABG pCO2 POC ABG pO2 ABG pO2 ABG HCO3 ABG Base Excess ABG Hemoglobin VBG pH Oxyhemoglobin Sodium Potassium Chloride Carbon Dioxide BUN Creatinine Glucose POC Glucose 304 H 217 H 344 H Lactic Acid Calcium AST ALT Alkaline Phosphatase CK-MB (CK-2) CK-MB (CK-2) Rel Index Total Protein Albumin TSH Urine WBC (Auto) Salicylates 04/16/17 04/17/17 04/17/17 21:25 05:12 14:19 WBC RBC Hgb Hct MCV MCH RDW Plt Count Lymph % (Auto) [place] % (Auto) Eos % (Auto) [place] # Seg Neutrophils % Seg Neuts % (Manual) Lymphocytes % (Manual) Seg Neutrophils # Seg Neutrophils # Man Lymphocytes # (Manual) APTT POC ABG pH ABG pH POC ABG pCO2 POC ABG pO2 ABG pO2 ABG HCO3 ABG Base Excess ABG Hemoglobin VBG pH Oxyhemoglobin Sodium Potassium Chloride Carbon Dioxide BUN Creatinine Glucose POC Glucose 305 H 233 H 324 H Lactic Acid Calcium AST ALT Alkaline Phosphatase CK-MB (CK-2) CK-MB (CK-2) Rel Index Total Protein Albumin TSH Urine WBC (Auto) Salicylates 04/17/17 04/18/17 04/18/17 21:42 06:21 14:08 WBC RBC Hgb Hct MCV MCH RDW Plt Count Lymph % (Auto) [place] % (Auto) Eos % (Auto) [place] # Seg Neutrophils % Seg Neuts % (Manual) Lymphocytes % (Manual) Seg Neutrophils # Seg Neutrophils # Man Lymphocytes # (Manual) APTT POC ABG pH ABG pH POC ABG pCO2 POC ABG pO2 ABG pO2 ABG HCO3 ABG Base Excess ABG Hemoglobin VBG pH Oxyhemoglobin Sodium Potassium Chloride Carbon Dioxide BUN Creatinine Glucose POC Glucose 270 H 308 H 290 H Lactic Acid Calcium AST ALT Alkaline Phosphatase CK-MB (CK-2) CK-MB (CK-2) Rel Index Total Protein Albumin TSH Urine WBC (Auto) Salicylates 04/18/17 04/19/17 04/19/17 21:50 05:20 13:59 WBC RBC Hgb Hct MCV MCH RDW Plt Count Lymph % (Auto) [place] % (Auto) Eos % (Auto) [place] # Seg Neutrophils % Seg Neuts % (Manual) Lymphocytes % (Manual) Seg Neutrophils # Seg Neutrophils # Man Lymphocytes # (Manual) APTT POC ABG pH ABG pH POC ABG pCO2 POC ABG pO2 ABG pO2 ABG HCO3 ABG Base Excess ABG Hemoglobin VBG pH Oxyhemoglobin Sodium Potassium Chloride Carbon Dioxide BUN Creatinine Glucose POC Glucose 167 H 372 H 321 H Lactic Acid Calcium AST ALT Alkaline Phosphatase CK-MB (CK-2) CK-MB (CK-2) Rel Index Total Protein Albumin TSH Urine WBC (Auto) Salicylates 04/19/17 04/20/17 04/20/17 21:16 14:18 21:34 WBC RBC Hgb Hct MCV MCH RDW Plt Count Lymph % (Auto) [place] % (Auto) Eos % (Auto) [place] # Seg Neutrophils % Seg Neuts % (Manual) Lymphocytes % (Manual) Seg Neutrophils # Seg Neutrophils # Man Lymphocytes # (Manual) APTT POC ABG pH ABG pH POC ABG pCO2 POC ABG pO2 ABG pO2 ABG HCO3 ABG Base Excess ABG Hemoglobin VBG pH Oxyhemoglobin Sodium Potassium Chloride Carbon Dioxide BUN Creatinine Glucose POC Glucose 182 H 218 H 121 H Lactic Acid Calcium AST ALT Alkaline Phosphatase CK-MB (CK-2) CK-MB (CK-2) Rel Index Total Protein Albumin TSH Urine WBC (Auto) Salicylates 04/21/17 04/21/17 04/21/17 00:08 05:16 12:41 WBC RBC Hgb Hct MCV MCH RDW Plt Count Lymph % (Auto) [place] % (Auto) Eos % (Auto) [place] # Seg Neutrophils % Seg Neuts % (Manual) Lymphocytes % (Manual) Seg Neutrophils # Seg Neutrophils # Man Lymphocytes # (Manual) APTT POC ABG pH ABG pH POC ABG pCO2 POC ABG pO2 ABG pO2 ABG HCO3 ABG Base Excess ABG Hemoglobin VBG pH Oxyhemoglobin Sodium Potassium Chloride Carbon Dioxide BUN Creatinine Glucose POC Glucose 128 H 120 H 216 H Lactic Acid Calcium AST ALT Alkaline Phosphatase CK-MB (CK-2) CK-MB (CK-2) Rel Index Total Protein Albumin TSH Urine WBC (Auto) Salicylates 04/21/17 04/22/17 04/22/17 23:40 14:12 23:38 WBC RBC Hgb Hct MCV MCH RDW Plt Count Lymph % (Auto) [place] % (Auto) Eos % (Auto) [place] # Seg Neutrophils % Seg Neuts % (Manual) Lymphocytes % (Manual) Seg Neutrophils # Seg Neutrophils # Man Lymphocytes # (Manual) APTT POC ABG pH ABG pH POC ABG pCO2 POC ABG pO2 ABG pO2 ABG HCO3 ABG Base Excess ABG Hemoglobin VBG pH Oxyhemoglobin Sodium Potassium Chloride Carbon Dioxide BUN Creatinine Glucose POC Glucose 157 H 242 H 117 H Lactic Acid Calcium AST ALT Alkaline Phosphatase CK-MB (CK-2) CK-MB (CK-2) Rel Index Total Protein Albumin TSH Urine WBC (Auto) Salicylates 04/23/17 04/23/17 04/24/17 05:18 14:01 03:24 WBC RBC Hgb Hct MCV MCH RDW Plt Count Lymph % (Auto) [place] % (Auto) Eos % (Auto) [place] # Seg Neutrophils % Seg Neuts % (Manual) Lymphocytes % (Manual) Seg Neutrophils # Seg Neutrophils # Man Lymphocytes # (Manual) APTT POC ABG pH ABG pH POC ABG pCO2 POC ABG pO2 ABG pO2 ABG HCO3 ABG Base Excess ABG Hemoglobin VBG pH Oxyhemoglobin Sodium Potassium Chloride Carbon Dioxide BUN Creatinine Glucose POC Glucose 163 H 57 L 177 H Lactic Acid Calcium AST ALT Alkaline Phosphatase CK-MB (CK-2) CK-MB (CK-2) Rel Index Total Protein Albumin TSH Urine WBC (Auto) Salicylates 04/24/17 04/24/17 04/24/17 04:00 04:00 06:33 WBC RBC Hgb 9.9 L Hct 30.0 L MCV 79 L MCH 26 L RDW 17.1 H Plt Count 625 H Lymph % (Auto) [place] % (Auto) 8.4 H Eos % (Auto) [place] # Seg Neutrophils % Seg Neuts % (Manual) Lymphocytes % (Manual) Seg Neutrophils # Seg Neutrophils # Man Lymphocytes # (Manual) APTT POC ABG pH ABG pH POC ABG pCO2 POC ABG pO2 ABG pO2 ABG HCO3 ABG Base Excess ABG Hemoglobin VBG pH Oxyhemoglobin Sodium 136 L Potassium Chloride 94.9 L Carbon Dioxide BUN 40 H Creatinine 0.6 L Glucose 176 H POC Glucose 230 H Lactic Acid Calcium AST 67 H ALT Alkaline Phosphatase 294 H CK-MB (CK-2) CK-MB (CK-2) Rel Index Total Protein 9.0 H Albumin 2.5 L TSH Urine WBC (Auto) Salicylates 04/24/17 04/25/17 04/25/17 13:50 00:22 02:55 WBC RBC 3.54 L Hgb 9.0 L Hct 27.9 L MCV 79 L MCH 26 L RDW 17.5 H Plt Count 574 H Lymph % (Auto) [place] % (Auto) 10.4 H Eos % (Auto) [place] # 1.0 H Seg Neutrophils % Seg Neuts % (Manual) Lymphocytes % (Manual) Seg Neutrophils # Seg Neutrophils # Man Lymphocytes # (Manual) APTT POC ABG pH ABG pH POC ABG pCO2 POC ABG pO2 ABG pO2 ABG HCO3 ABG Base Excess ABG Hemoglobin VBG pH Oxyhemoglobin Sodium Potassium Chloride Carbon Dioxide BUN Creatinine Glucose POC Glucose 116 H < 40 L Lactic Acid Calcium AST ALT Alkaline Phosphatase CK-MB (CK-2) CK-MB (CK-2) Rel Index Total Protein Albumin TSH Urine WBC (Auto) Salicylates 04/25/17 04/25/17 04/25/17 02:55 11:15 18:36 WBC RBC Hgb Hct MCV MCH RDW Plt Count Lymph % (Auto) [place] % (Auto) Eos % (Auto) [place] # Seg Neutrophils % Seg Neuts % (Manual) Lymphocytes % (Manual) Seg Neutrophils # Seg Neutrophils # Man Lymphocytes # (Manual) APTT POC ABG pH ABG pH POC ABG pCO2 POC ABG pO2 ABG pO2 ABG HCO3 ABG Base Excess ABG Hemoglobin VBG pH Oxyhemoglobin Sodium Potassium Chloride 96.2 L Carbon Dioxide BUN 39 H Creatinine 0.7 L Glucose 125 H POC Glucose 227 H 280 H Lactic Acid Calcium AST ALT Alkaline Phosphatase 247 H CK-MB (CK-2) CK-MB (CK-2) Rel Index Total Protein Albumin 2.7 L TSH Urine WBC (Auto) Salicylates 04/25/17 04/26/17 04/26/17 21:49 06:53 07:27 WBC RBC 3.61 L Hgb 9.1 L Hct 28.1 L MCV 78 L MCH 25 L RDW 17.4 H Plt Count 594 H Lymph % (Auto) [place] % (Auto) 9.2 H Eos % (Auto) [place] # 1.0 H Seg Neutrophils % 70.6 H Seg Neuts % (Manual) Lymphocytes % (Manual) Seg Neutrophils # Seg Neutrophils # Man Lymphocytes # (Manual) APTT POC ABG pH ABG pH POC ABG pCO2 POC ABG pO2 ABG pO2 ABG HCO3 ABG Base Excess ABG Hemoglobin VBG pH Oxyhemoglobin Sodium Potassium Chloride Carbon Dioxide BUN Creatinine Glucose POC Glucose 192 H 60 L Lactic Acid Calcium AST ALT Alkaline Phosphatase CK-MB (CK-2) CK-MB (CK-2) Rel Index Total Protein Albumin TSH Urine WBC (Auto) Salicylates 04/26/17 04/26/17 04/26/17 07:27 07:28 13:32 WBC RBC Hgb Hct MCV MCH RDW Plt Count Lymph % (Auto) [place] % (Auto) Eos % (Auto) [place] # Seg Neutrophils % Seg Neuts % (Manual) Lymphocytes % (Manual) Seg Neutrophils # Seg Neutrophils # Man Lymphocytes # (Manual) APTT POC ABG pH ABG pH POC ABG pCO2 POC ABG pO2 ABG pO2 ABG HCO3 ABG Base Excess ABG Hemoglobin VBG pH Oxyhemoglobin Sodium Potassium Chloride 95.0 L Carbon Dioxide BUN 42 H Creatinine 0.7 L Glucose 172 H POC Glucose 190 H 168 H Lactic Acid Calcium AST 56 H ALT Alkaline Phosphatase 274 H CK-MB (CK-2) CK-MB (CK-2) Rel Index Total Protein 8.9 H Albumin 2.7 L TSH Urine WBC (Auto) Salicylates 04/26/17 04/27/17 04/27/17 23:36 05:10 05:10 WBC RBC 3.49 L Hgb 8.7 L Hct 27.0 L MCV 77 L MCH 25 L RDW 17.4 H Plt Count 558 H Lymph % (Auto) [place] % (Auto) 9.6 H Eos % (Auto) [place] # Seg Neutrophils % Seg Neuts % (Manual) Lymphocytes % (Manual) Seg Neutrophils # Seg Neutrophils # Man Lymphocytes # (Manual) APTT POC ABG pH ABG pH POC ABG pCO2 POC ABG pO2 ABG pO2 ABG HCO3 ABG Base Excess ABG Hemoglobin VBG pH Oxyhemoglobin Sodium 133 L Potassium Chloride 93.5 L Carbon Dioxide BUN 40 H Creatinine 0.7 L Glucose 179 H POC Glucose 204 H Lactic Acid Calcium AST 73 H ALT 58 H Alkaline Phosphatase 294 H CK-MB (CK-2) CK-MB (CK-2) Rel Index Total Protein 8.7 H Albumin 2.4 L TSH Urine WBC (Auto) Salicylates 04/27/17 04/27/17 04/27/17 05:45 14:08 23:46 WBC RBC Hgb Hct MCV MCH RDW Plt Count Lymph % (Auto) [place] % (Auto) Eos % (Auto) [place] # Seg Neutrophils % Seg Neuts % (Manual) Lymphocytes % (Manual) Seg Neutrophils # Seg Neutrophils # Man Lymphocytes # (Manual) APTT POC ABG pH ABG pH POC ABG pCO2 POC ABG pO2 ABG pO2 ABG HCO3 ABG Base Excess ABG Hemoglobin VBG pH Oxyhemoglobin Sodium Potassium Chloride Carbon Dioxide BUN Creatinine Glucose POC Glucose 200 H 206 H 207 H Lactic Acid Calcium AST ALT Alkaline Phosphatase CK-MB (CK-2) CK-MB (CK-2) Rel Index Total Protein Albumin TSH Urine WBC (Auto) Salicylates 04/28/17 04/28/17 04/28/17 04:48 04:53 05:10 WBC RBC 3.48 L Hgb 8.8 L Hct 26.7 L MCV 77 L MCH 25 L RDW 17.0 H Plt Count 515 H Lymph % (Auto) [place] % (Auto) 8.4 H Eos % (Auto) [place] # Seg Neutrophils % 70.6 H Seg Neuts % (Manual) Lymphocytes % (Manual) Seg Neutrophils # Seg Neutrophils # Man Lymphocytes # (Manual) APTT POC ABG pH ABG pH POC ABG pCO2 POC ABG pO2 ABG pO2 ABG HCO3 ABG Base Excess ABG Hemoglobin VBG pH Oxyhemoglobin Sodium Potassium Chloride Carbon Dioxide BUN Creatinine Glucose POC Glucose 43 L 41 L Lactic Acid Calcium AST ALT Alkaline Phosphatase CK-MB (CK-2) CK-MB (CK-2) Rel Index Total Protein Albumin TSH Urine WBC (Auto) Salicylates 04/28/17 04/28/17 04/28/17 05:10 14:06 22:07 WBC RBC Hgb Hct MCV MCH RDW Plt Count Lymph % (Auto) [place] % (Auto) Eos % (Auto) [place] # Seg Neutrophils % Seg Neuts % (Manual) Lymphocytes % (Manual) Seg Neutrophils # Seg Neutrophils # Man Lymphocytes # (Manual) APTT POC ABG pH ABG pH POC ABG pCO2 POC ABG pO2 ABG pO2 ABG HCO3 ABG Base Excess ABG Hemoglobin VBG pH Oxyhemoglobin Sodium 136 L Potassium Chloride 95.2 L Carbon Dioxide BUN 42 H Creatinine Glucose 63 L POC Glucose 303 H 227 H Lactic Acid Calcium AST 45 H ALT Alkaline Phosphatase 271 H CK-MB (CK-2) CK-MB (CK-2) Rel Index Total Protein 8.9 H Albumin 2.5 L TSH Urine WBC (Auto) Salicylates 04/29/17 04/29/17 04/29/17 06:40 14:11 21:35 WBC RBC Hgb Hct MCV MCH RDW Plt Count Lymph % (Auto) [place] % (Auto) Eos % (Auto) [place] # Seg Neutrophils % Seg Neuts % (Manual) Lymphocytes % (Manual) Seg Neutrophils # Seg Neutrophils # Man Lymphocytes # (Manual) APTT POC ABG pH ABG pH POC ABG pCO2 POC ABG pO2 ABG pO2 ABG HCO3 ABG Base Excess ABG Hemoglobin VBG pH Oxyhemoglobin Sodium Potassium Chloride Carbon Dioxide BUN Creatinine Glucose POC Glucose 254 H 244 H 184 H Lactic Acid Calcium AST ALT Alkaline Phosphatase CK-MB (CK-2) CK-MB (CK-2) Rel Index Total Protein Albumin TSH Urine WBC (Auto) Salicylates 04/30/17 04/30/17 04/30/17 05:17 14:03 22:08 WBC RBC Hgb Hct MCV MCH RDW Plt Count Lymph % (Auto) [place] % (Auto) Eos % (Auto) [place] # Seg Neutrophils % Seg Neuts % (Manual) Lymphocytes % (Manual) Seg Neutrophils # Seg Neutrophils # Man Lymphocytes # (Manual) APTT POC ABG pH ABG pH POC ABG pCO2 POC ABG pO2 ABG pO2 ABG HCO3 ABG Base Excess ABG Hemoglobin VBG pH Oxyhemoglobin Sodium Potassium Chloride Carbon Dioxide BUN Creatinine Glucose POC Glucose 173 H 182 H 247 H Lactic Acid Calcium AST ALT Alkaline Phosphatase CK-MB (CK-2) CK-MB (CK-2) Rel Index Total Protein Albumin TSH Urine WBC (Auto) Salicylates 05/01/17 05/01/17 05/01/17 05:04 15:37 18:50 WBC RBC Hgb Hct MCV MCH RDW Plt Count Lymph % (Auto) [place] % (Auto) Eos % (Auto) [place] # Seg Neutrophils % Seg Neuts % (Manual) Lymphocytes % (Manual) Seg Neutrophils # Seg Neutrophils # Man Lymphocytes # (Manual) APTT POC ABG pH ABG pH POC ABG pCO2 POC ABG pO2 ABG pO2 ABG HCO3 ABG Base Excess ABG Hemoglobin VBG pH Oxyhemoglobin Sodium Potassium Chloride Carbon Dioxide BUN Creatinine Glucose POC Glucose 335 H 68 L 144 H Lactic Acid Calcium AST ALT Alkaline Phosphatase CK-MB (CK-2) CK-MB (CK-2) Rel Index Total Protein Albumin TSH Urine WBC (Auto) Salicylates 05/01/17 05/02/17 05/02/17 22:13 04:59 14:06 WBC RBC Hgb Hct MCV MCH RDW Plt Count Lymph % (Auto) [place] % (Auto) Eos % (Auto) [place] # Seg Neutrophils % Seg Neuts % (Manual) Lymphocytes % (Manual) Seg Neutrophils # Seg Neutrophils # Man Lymphocytes # (Manual) APTT POC ABG pH ABG pH POC ABG pCO2 POC ABG pO2 ABG pO2 ABG HCO3 ABG Base Excess ABG Hemoglobin VBG pH Oxyhemoglobin Sodium Potassium Chloride Carbon Dioxide BUN Creatinine Glucose POC Glucose 192 H 225 H 165 H Lactic Acid Calcium AST ALT Alkaline Phosphatase CK-MB (CK-2) CK-MB (CK-2) Rel Index Total Protein Albumin TSH Urine WBC (Auto) Salicylates 05/02/17 05/03/17 05/03/17 21:20 05:16 16:56 WBC RBC Hgb Hct MCV MCH RDW Plt Count Lymph % (Auto) [place] % (Auto) Eos % (Auto) [place] # Seg Neutrophils % Seg Neuts % (Manual) Lymphocytes % (Manual) Seg Neutrophils # Seg Neutrophils # Man Lymphocytes # (Manual) APTT POC ABG pH ABG pH POC ABG pCO2 POC ABG pO2 ABG pO2 ABG HCO3 ABG Base Excess ABG Hemoglobin VBG pH Oxyhemoglobin Sodium Potassium Chloride Carbon Dioxide BUN Creatinine Glucose POC Glucose 181 H 323 H 125 H Lactic Acid Calcium AST ALT Alkaline Phosphatase CK-MB (CK-2) CK-MB (CK-2) Rel Index Total Protein Albumin TSH Urine WBC (Auto) Salicylates 05/03/17 05/04/17 05/04/17 21:46 05:01 14:24 WBC RBC Hgb Hct MCV MCH RDW Plt Count Lymph % (Auto) [place] % (Auto) Eos % (Auto) [place] # Seg Neutrophils % Seg Neuts % (Manual) Lymphocytes % (Manual) Seg Neutrophils # Seg Neutrophils # Man Lymphocytes # (Manual) APTT POC ABG pH ABG pH POC ABG pCO2 POC ABG pO2 ABG pO2 ABG HCO3 ABG Base Excess ABG Hemoglobin VBG pH Oxyhemoglobin Sodium Potassium Chloride Carbon Dioxide BUN Creatinine Glucose POC Glucose 210 H 360 H 219 H Lactic Acid Calcium AST ALT Alkaline Phosphatase CK-MB (CK-2) CK-MB (CK-2) Rel Index Total Protein Albumin TSH Urine WBC (Auto) Salicylates 05/04/17 05/05/17 05/05/17 21:39 01:58 05:13 WBC RBC Hgb Hct MCV MCH RDW Plt Count Lymph % (Auto) [place] % (Auto) Eos % (Auto) [place] # Seg Neutrophils % Seg Neuts % (Manual) Lymphocytes % (Manual) Seg Neutrophils # Seg Neutrophils # Man Lymphocytes # (Manual) APTT POC ABG pH ABG pH POC ABG pCO2 POC ABG pO2 ABG pO2 ABG HCO3 ABG Base Excess ABG Hemoglobin VBG pH Oxyhemoglobin Sodium Potassium Chloride Carbon Dioxide BUN Creatinine Glucose POC Glucose 126 H 175 H 267 H Lactic Acid Calcium AST ALT Alkaline Phosphatase CK-MB (CK-2) CK-MB (CK-2) Rel Index Total Protein Albumin TSH Urine WBC (Auto) Salicylates 05/05/17 05/05/17 05/05/17 12:19 14:11 21:18 WBC RBC Hgb Hct MCV MCH RDW Plt Count Lymph % (Auto) [place] % (Auto) Eos % (Auto) [place] # Seg Neutrophils % Seg Neuts % (Manual) Lymphocytes % (Manual) Seg Neutrophils # Seg Neutrophils # Man Lymphocytes # (Manual) APTT POC ABG pH ABG pH POC ABG pCO2 POC ABG pO2 ABG pO2 ABG HCO3 ABG Base Excess ABG Hemoglobin VBG pH Oxyhemoglobin Sodium Potassium Chloride Carbon Dioxide BUN Creatinine Glucose POC Glucose 221 H 205 H 156 H Lactic Acid Calcium AST ALT Alkaline Phosphatase CK-MB (CK-2) CK-MB (CK-2) Rel Index Total Protein Albumin TSH Urine WBC (Auto) Salicylates 05/06/17 05/06/17 05/06/17 06:02 15:26 21:43 WBC RBC Hgb Hct MCV MCH RDW Plt Count Lymph % (Auto) [place] % (Auto) Eos % (Auto) [place] # Seg Neutrophils % Seg Neuts % (Manual) Lymphocytes % (Manual) Seg Neutrophils # Seg Neutrophils # Man Lymphocytes # (Manual) APTT POC ABG pH ABG pH POC ABG pCO2 POC ABG pO2 ABG pO2 ABG HCO3 ABG Base Excess ABG Hemoglobin VBG pH Oxyhemoglobin Sodium Potassium Chloride Carbon Dioxide BUN Creatinine Glucose POC Glucose 263 H 143 H 145 H Lactic Acid Calcium AST ALT Alkaline Phosphatase CK-MB (CK-2) CK-MB (CK-2) Rel Index Total Protein Albumin TSH Urine WBC (Auto) Salicylates 05/07/17 05/07/17 05/07/17 05:52 21:46 21:49 WBC RBC Hgb Hct MCV MCH RDW Plt Count Lymph % (Auto) [place] % (Auto) Eos % (Auto) [place] # Seg Neutrophils % Seg Neuts % (Manual) Lymphocytes % (Manual) Seg Neutrophils # Seg Neutrophils # Man Lymphocytes # (Manual) APTT POC ABG pH ABG pH POC ABG pCO2 POC ABG pO2 ABG pO2 ABG HCO3 ABG Base Excess ABG Hemoglobin VBG pH Oxyhemoglobin Sodium Potassium Chloride Carbon Dioxide BUN Creatinine Glucose POC Glucose 242 H < 40 L < 40 L Lactic Acid Calcium AST ALT Alkaline Phosphatase CK-MB (CK-2) CK-MB (CK-2) Rel Index Total Protein Albumin TSH Urine WBC (Auto) Salicylates 05/07/17 05/08/17 05/09/17 22:41 06:14 00:02 WBC RBC Hgb Hct MCV MCH RDW Plt Count Lymph % (Auto) [place] % (Auto) Eos % (Auto) [place] # Seg Neutrophils % Seg Neuts % (Manual) Lymphocytes % (Manual) Seg Neutrophils # Seg Neutrophils # Man Lymphocytes # (Manual) APTT POC ABG pH ABG pH POC ABG pCO2 POC ABG pO2 ABG pO2 ABG HCO3 ABG Base Excess ABG Hemoglobin VBG pH Oxyhemoglobin Sodium Potassium Chloride Carbon Dioxide BUN Creatinine Glucose POC Glucose 183 H 329 H 130 H Lactic Acid Calcium AST ALT Alkaline Phosphatase CK-MB (CK-2) CK-MB (CK-2) Rel Index Total Protein Albumin TSH Urine WBC (Auto) Salicylates 05/09/17 05/09/17 05/09/17 06:08 14:06 21:44 WBC RBC Hgb Hct MCV MCH RDW Plt Count Lymph % (Auto) [place] % (Auto) Eos % (Auto) [place] # Seg Neutrophils % Seg Neuts % (Manual) Lymphocytes % (Manual) Seg Neutrophils # Seg Neutrophils # Man Lymphocytes # (Manual) APTT POC ABG pH ABG pH POC ABG pCO2 POC ABG pO2 ABG pO2 ABG HCO3 ABG Base Excess ABG Hemoglobin VBG pH Oxyhemoglobin Sodium Potassium Chloride Carbon Dioxide BUN Creatinine Glucose POC Glucose 241 H 251 H 198 H Lactic Acid Calcium AST ALT Alkaline Phosphatase CK-MB (CK-2) CK-MB (CK-2) Rel Index Total Protein Albumin TSH Urine WBC (Auto) Salicylates 05/10/17 05/10/17 05/10/17 05:18 14:44 21:53 WBC RBC Hgb Hct MCV MCH RDW Plt Count Lymph % (Auto) [place] % (Auto) Eos % (Auto) [place] # Seg Neutrophils % Seg Neuts % (Manual) Lymphocytes % (Manual) Seg Neutrophils # Seg Neutrophils # Man Lymphocytes # (Manual) APTT POC ABG pH ABG pH POC ABG pCO2 POC ABG pO2 ABG pO2 ABG HCO3 ABG Base Excess ABG Hemoglobin VBG pH Oxyhemoglobin Sodium Potassium Chloride Carbon Dioxide BUN Creatinine Glucose POC Glucose 166 H 224 H 171 H Lactic Acid Calcium AST ALT Alkaline Phosphatase CK-MB (CK-2) CK-MB (CK-2) Rel Index Total Protein Albumin TSH Urine WBC (Auto) Salicylates 05/11/17 05/11/17 05/11/17 05:45 13:44 21:42 WBC RBC Hgb Hct MCV MCH RDW Plt Count Lymph % (Auto) [place] % (Auto) Eos % (Auto) [place] # Seg Neutrophils % Seg Neuts % (Manual) Lymphocytes % (Manual) Seg Neutrophils # Seg Neutrophils # Man Lymphocytes # (Manual) APTT POC ABG pH ABG pH POC ABG pCO2 POC ABG pO2 ABG pO2 ABG HCO3 ABG Base Excess ABG Hemoglobin VBG pH Oxyhemoglobin Sodium Potassium Chloride Carbon Dioxide BUN Creatinine Glucose POC Glucose 199 H 150 H 163 H Lactic Acid Calcium AST ALT Alkaline Phosphatase CK-MB (CK-2) CK-MB (CK-2) Rel Index Total Protein Albumin TSH Urine WBC (Auto) Salicylates 05/12/17 05/12/17 05/12/17 06:03 13:59 21:22 WBC RBC Hgb Hct MCV MCH RDW Plt Count Lymph % (Auto) [place] % (Auto) Eos % (Auto) [place] # Seg Neutrophils % Seg Neuts % (Manual) Lymphocytes % (Manual) Seg Neutrophils # Seg Neutrophils # Man Lymphocytes # (Manual) APTT POC ABG pH ABG pH POC ABG pCO2 POC ABG pO2 ABG pO2 ABG HCO3 ABG Base Excess ABG Hemoglobin VBG pH Oxyhemoglobin Sodium Potassium Chloride Carbon Dioxide BUN Creatinine Glucose POC Glucose 147 H 243 H 116 H Lactic Acid Calcium AST ALT Alkaline Phosphatase CK-MB (CK-2) CK-MB (CK-2) Rel Index Total Protein Albumin TSH Urine WBC (Auto) Salicylates 05/13/17 05/13/17 05/13/17 05:28 13:49 21:29 WBC RBC Hgb Hct MCV MCH RDW Plt Count Lymph % (Auto) [place] % (Auto) Eos % (Auto) [place] # Seg Neutrophils % Seg Neuts % (Manual) Lymphocytes % (Manual) Seg Neutrophils # Seg Neutrophils # Man Lymphocytes # (Manual) APTT POC ABG pH ABG pH POC ABG pCO2 POC ABG pO2 ABG pO2 ABG HCO3 ABG Base Excess ABG Hemoglobin VBG pH Oxyhemoglobin Sodium Potassium Chloride Carbon Dioxide BUN Creatinine Glucose POC Glucose 213 H 224 H 379 H Lactic Acid Calcium AST ALT Alkaline Phosphatase CK-MB (CK-2) CK-MB (CK-2) Rel Index Total Protein Albumin TSH Urine WBC (Auto) Salicylates 05/14/17 05/14/17 05/14/17 05:17 13:35 21:23 WBC RBC Hgb Hct MCV MCH RDW Plt Count Lymph % (Auto) [place] % (Auto) Eos % (Auto) [place] # Seg Neutrophils % Seg Neuts % (Manual) Lymphocytes % (Manual) Seg Neutrophils # Seg Neutrophils # Man Lymphocytes # (Manual) APTT POC ABG pH ABG pH POC ABG pCO2 POC ABG pO2 ABG pO2 ABG HCO3 ABG Base Excess ABG Hemoglobin VBG pH Oxyhemoglobin Sodium Potassium Chloride Carbon Dioxide BUN Creatinine Glucose POC Glucose 234 H 242 H 218 H Lactic Acid Calcium AST ALT Alkaline Phosphatase CK-MB (CK-2) CK-MB (CK-2) Rel Index Total Protein Albumin TSH Urine WBC (Auto) Salicylates 05/15/17 05/15/17 05/16/17 04:58 13:53 01:34 WBC RBC Hgb Hct MCV MCH RDW Plt Count Lymph % (Auto) [place] % (Auto) Eos % (Auto) [place] # Seg Neutrophils % Seg Neuts % (Manual) Lymphocytes % (Manual) Seg Neutrophils # Seg Neutrophils # Man Lymphocytes # (Manual) APTT POC ABG pH ABG pH POC ABG pCO2 POC ABG pO2 ABG pO2 ABG HCO3 ABG Base Excess ABG Hemoglobin VBG pH Oxyhemoglobin Sodium Potassium Chloride Carbon Dioxide BUN Creatinine Glucose POC Glucose 310 H 193 H 263 H Lactic Acid Calcium AST ALT Alkaline Phosphatase CK-MB (CK-2) CK-MB (CK-2) Rel Index Total Protein Albumin TSH Urine WBC (Auto) Salicylates 05/16/17 05/16/17 05/16/17 06:03 14:36 21:59 WBC RBC Hgb Hct MCV MCH RDW Plt Count Lymph % (Auto) [place] % (Auto) Eos % (Auto) [place] # Seg Neutrophils % Seg Neuts % (Manual) Lymphocytes % (Manual) Seg Neutrophils # Seg Neutrophils # Man Lymphocytes # (Manual) APTT POC ABG pH ABG pH POC ABG pCO2 POC ABG pO2 ABG pO2 ABG HCO3 ABG Base Excess ABG Hemoglobin VBG pH Oxyhemoglobin Sodium Potassium Chloride Carbon Dioxide BUN Creatinine Glucose POC Glucose 330 H 272 H 198 H Lactic Acid Calcium AST ALT Alkaline Phosphatase CK-MB (CK-2) CK-MB (CK-2) Rel Index Total Protein Albumin TSH Urine WBC (Auto) Salicylates 05/17/17 05/17/17 05/18/17 05:48 13:59 05:27 WBC RBC Hgb Hct MCV MCH RDW Plt Count Lymph % (Auto) [place] % (Auto) Eos % (Auto) [place] # Seg Neutrophils % Seg Neuts % (Manual) Lymphocytes % (Manual) Seg Neutrophils # Seg Neutrophils # Man Lymphocytes # (Manual) APTT POC ABG pH ABG pH POC ABG pCO2 POC ABG pO2 ABG pO2 ABG HCO3 ABG Base Excess ABG Hemoglobin VBG pH Oxyhemoglobin Sodium Potassium Chloride Carbon Dioxide BUN Creatinine Glucose POC Glucose 204 H 229 H 152 H Lactic Acid Calcium AST ALT Alkaline Phosphatase CK-MB (CK-2) CK-MB (CK-2) Rel Index Total Protein Albumin TSH Urine WBC (Auto) Salicylates 05/18/17 05/18/17 05/19/17 14:16 21:27 04:59 WBC RBC Hgb Hct MCV MCH RDW Plt Count Lymph % (Auto) [place] % (Auto) Eos % (Auto) [place] # Seg Neutrophils % Seg Neuts % (Manual) Lymphocytes % (Manual) Seg Neutrophils # Seg Neutrophils # Man Lymphocytes # (Manual) APTT POC ABG pH ABG pH POC ABG pCO2 POC ABG pO2 ABG pO2 ABG HCO3 ABG Base Excess ABG Hemoglobin VBG pH Oxyhemoglobin Sodium Potassium Chloride Carbon Dioxide BUN Creatinine Glucose POC Glucose 217 H 202 H 131 H Lactic Acid Calcium AST ALT Alkaline Phosphatase CK-MB (CK-2) CK-MB (CK-2) Rel Index Total Protein Albumin TSH Urine WBC (Auto) Salicylates 05/19/17 05/20/17 05/20/17 14:57 00:11 05:45 WBC RBC Hgb Hct MCV MCH RDW Plt Count Lymph % (Auto) [place] % (Auto) Eos % (Auto) [place] # Seg Neutrophils % Seg Neuts % (Manual) Lymphocytes % (Manual) Seg Neutrophils # Seg Neutrophils # Man Lymphocytes # (Manual) APTT POC ABG pH ABG pH POC ABG pCO2 POC ABG pO2 ABG pO2 ABG HCO3 ABG Base Excess ABG Hemoglobin VBG pH Oxyhemoglobin Sodium Potassium Chloride Carbon Dioxide BUN Creatinine Glucose POC Glucose 216 H 197 H 195 H Lactic Acid Calcium AST ALT Alkaline Phosphatase CK-MB (CK-2) CK-MB (CK-2) Rel Index Total Protein Albumin TSH Urine WBC (Auto) Salicylates 05/20/17 05/20/17 05/21/17 13:29 22:11 05:43 WBC RBC Hgb Hct MCV MCH RDW Plt Count Lymph % (Auto) [place] % (Auto) Eos % (Auto) [place] # Seg Neutrophils % Seg Neuts % (Manual) Lymphocytes % (Manual) Seg Neutrophils # Seg Neutrophils # Man Lymphocytes # (Manual) APTT POC ABG pH ABG pH POC ABG pCO2 POC ABG pO2 ABG pO2 ABG HCO3 ABG Base Excess ABG Hemoglobin VBG pH Oxyhemoglobin Sodium Potassium Chloride Carbon Dioxide BUN Creatinine Glucose POC Glucose 138 H 242 H 228 H Lactic Acid Calcium AST ALT Alkaline Phosphatase CK-MB (CK-2) CK-MB (CK-2) Rel Index Total Protein Albumin TSH Urine WBC (Auto) Salicylates 05/21/17 05/21/17 05/22/17 14:06 21:49 05:31 WBC RBC Hgb Hct MCV MCH RDW Plt Count Lymph % (Auto) [place] % (Auto) Eos % (Auto) [place] # Seg Neutrophils % Seg Neuts % (Manual) Lymphocytes % (Manual) Seg Neutrophils # Seg Neutrophils # Man Lymphocytes # (Manual) APTT POC ABG pH ABG pH POC ABG pCO2 POC ABG pO2 ABG pO2 ABG HCO3 ABG Base Excess ABG Hemoglobin VBG pH Oxyhemoglobin Sodium Potassium Chloride Carbon Dioxide BUN Creatinine Glucose POC Glucose 191 H 166 H 184 H Lactic Acid Calcium AST ALT Alkaline Phosphatase CK-MB (CK-2) CK-MB (CK-2) Rel Index Total Protein Albumin TSH Urine WBC (Auto) Salicylates 05/22/17 05/22/17 05/23/17 14:03 21:45 05:41 WBC RBC Hgb Hct MCV MCH RDW Plt Count Lymph % (Auto) [place] % (Auto) Eos % (Auto) [place] # Seg Neutrophils % Seg Neuts % (Manual) Lymphocytes % (Manual) Seg Neutrophils # Seg Neutrophils # Man Lymphocytes # (Manual) APTT POC ABG pH ABG pH POC ABG pCO2 POC ABG pO2 ABG pO2 ABG HCO3 ABG Base Excess ABG Hemoglobin VBG pH Oxyhemoglobin Sodium Potassium Chloride Carbon Dioxide BUN Creatinine Glucose POC Glucose 206 H 178 H 206 H Lactic Acid Calcium AST ALT Alkaline Phosphatase CK-MB (CK-2) CK-MB (CK-2) Rel Index Total Protein Albumin TSH Urine WBC (Auto) Salicylates 05/23/17 05/23/17 05/24/17 14:09 22:48 05:21 WBC RBC Hgb Hct MCV MCH RDW Plt Count Lymph % (Auto) [place] % (Auto) Eos % (Auto) [place] # Seg Neutrophils % Seg Neuts % (Manual) Lymphocytes % (Manual) Seg Neutrophils # Seg Neutrophils # Man Lymphocytes # (Manual) APTT POC ABG pH ABG pH POC ABG pCO2 POC ABG pO2 ABG pO2 ABG HCO3 ABG Base Excess ABG Hemoglobin VBG pH Oxyhemoglobin Sodium Potassium Chloride Carbon Dioxide BUN Creatinine Glucose POC Glucose 148 H 181 H 162 H Lactic Acid Calcium AST ALT Alkaline Phosphatase CK-MB (CK-2) CK-MB (CK-2) Rel Index Total Protein Albumin TSH Urine WBC (Auto) Salicylates 05/24/17 05/24/17 05/25/17 13:32 21:55 06:49 WBC RBC Hgb Hct MCV MCH RDW Plt Count Lymph % (Auto) [place] % (Auto) Eos % (Auto) [place] # Seg Neutrophils % Seg Neuts % (Manual) Lymphocytes % (Manual) Seg Neutrophils # Seg Neutrophils # Man Lymphocytes # (Manual) APTT POC ABG pH ABG pH POC ABG pCO2 POC ABG pO2 ABG pO2 ABG HCO3 ABG Base Excess ABG Hemoglobin VBG pH Oxyhemoglobin Sodium Potassium Chloride Carbon Dioxide BUN Creatinine Glucose POC Glucose 216 H 144 H 151 H Lactic Acid Calcium AST ALT Alkaline Phosphatase CK-MB (CK-2) CK-MB (CK-2) Rel Index Total Protein Albumin TSH Urine WBC (Auto) Salicylates 05/25/17 05/25/17 05/26/17 15:32 21:58 05:46 WBC RBC Hgb Hct MCV MCH RDW Plt Count Lymph % (Auto) [place] % (Auto) Eos % (Auto) [place] # Seg Neutrophils % Seg Neuts % (Manual) Lymphocytes % (Manual) Seg Neutrophils # Seg Neutrophils # Man Lymphocytes # (Manual) APTT POC ABG pH ABG pH POC ABG pCO2 POC ABG pO2 ABG pO2 ABG HCO3 ABG Base Excess ABG Hemoglobin VBG pH Oxyhemoglobin Sodium Potassium Chloride Carbon Dioxide BUN Creatinine Glucose POC Glucose 136 H 160 H 225 H Lactic Acid Calcium AST ALT Alkaline Phosphatase CK-MB (CK-2) CK-MB (CK-2) Rel Index Total Protein Albumin TSH Urine WBC (Auto) Salicylates 05/26/17 05/27/17 22:32 05:52 WBC RBC Hgb Hct MCV MCH RDW Plt Count Lymph % (Auto) [place] % (Auto) Eos % (Auto) [place] # Seg Neutrophils % Seg Neuts % (Manual) Lymphocytes % (Manual) Seg Neutrophils # Seg Neutrophils # Man Lymphocytes # (Manual) APTT POC ABG pH ABG pH POC ABG pCO2 POC ABG pO2 ABG pO2 ABG HCO3 ABG Base Excess ABG Hemoglobin VBG pH Oxyhemoglobin Sodium Potassium Chloride Carbon Dioxide BUN Creatinine Glucose POC Glucose 161 H 197 H Lactic Acid Calcium AST ALT Alkaline Phosphatase CK-MB (CK-2) CK-MB (CK-2) Rel Index Total Protein Albumin TSH Urine WBC (Auto) Salicylates
[2017-05-27] MEDS: HEPARIN SUB-Q SCH ×2 (11:12→21:48)
[2017-05-27] MEDS: LEVEMIR (NF) SUB-Q SCH (11:14)
--- NOTE | 2017-05-27 13:01 | Progress Note ---
Assessment and Plan Assessment and plan: 51 YO Male with CKD, HTN, DM presents to ED after found down and unresponsive by his neighbor, who subsequently called EMS. Upon arrival, patient found unresponsive on the floor with a serum glucose of 21, patient has a known history of alcohol abuse and delirium tremens. The patient was administered D5 approximate 500 mls during transport without change in mental status/level of consciousness. Pt seen and evaluated in ED was was found to be unable to protect his airway. Pt intubated and placed on vent support. Pt found to have evidence of hypothyroidism. He was started on Synthroid. He has since been in the ICU. creative services designer try to locate family, even spoke to the family who he lives with. They themselves were unaware of any family members. After ethics committee meeting on the patient. The decision was made to make him DO NOT RESUSCITATE and to transfer him to hospice. Given his very poor prognosis and poor likelihood of recovery. It was decided that was not his best interest to get trach and PEG. Therefore he'll be transferred to the hospice intubated. Now Awaiting on court ordered /state guardianship. Hypoglycemic brain injury Persistent vegetative state Metabolic encephalopathy Hypoglycemia/hypothermia, resolved Acute respiratory failure mechanical ventilator greater than 96 hours UTI with klebsiella, treated ( Cx + on 01/28), then with ESBL likely colonization hyponatremia, Hypothyroidism IDDM Hypertension low grade Fever, resolved - Cont supportive care and current medication. Monitor vitals, repeat cx on - no growth - increased dose of long acting insulin to 15 unit - Patient is DNR- needs guardianship from the state to give consent for further management, as has no family to give consent. 05/24/17: Resume care, Guardianship has been obtained but no authority to withdraw care. Continue supportative care. History Interval history: Patient was seen and examined. Follow-up on current diagnosis. Imaging, nursing note, chart, labs and old chart reviewed. Patient remains intubated Hospitalist Physical - Physical exam Narrative exam: GEN: Severely fail contracted BMI 16.5, comatose HEENT: NCAT, NG tube and ET tube in place CVS/HEART: RRR, NORMAL S1S2, NO JVD, pulses present bilaterally CHEST/LUNGS: Symmetrical chest expansion, good air entry bilaterally GI/Abdomen: soft, ND, good bowel sounds, no guarding or rebound Neuro: comatose, doesn't follow commands Psych: Unresponsive - Constitutional Vitals: Temp Pulse Resp BP Pulse Ox 97.5 F L 64 9 L 122/73 100 05/27/17 12:11 05/27/17 12:01 05/27/17 12:01 05/27/17 12:01 05/27/17 12:01 General appearance: Present: no acute distress Results - Labs CBC & Chem 7: 04/28/17 05:10 04/28/17 05:10 Labs: Laboratory Last Values WBC 9.3 K/mm3 (4.5-11.0) 04/28/17 05:10 RBC 3.48 M/mm3 (3.65-5.03) L 04/28/17 05:10 Hgb 8.8 gm/dl (11.8-15.2) L 04/28/17 05:10 Hct 26.7 % (35.5-45.6) L 04/28/17 05:10 MCV 77 fl (84-94) L 04/28/17 05:10 MCH 25 pg (28-32) L 04/28/17 05:10 MCHC 33 % (32-34) 04/28/17 05:10 RDW 17.0 % (13.2-15.2) H 04/28/17 05:10 Plt Count 515 K/mm3 (140-440) H 04/28/17 05:10 Lymph % (Auto) 18.4 % (13.4-35.0) 04/28/17 05:10 [place] % (Auto) 8.4 % (0.0-7.3) H 04/28/17 05:10 Eos % (Auto) 1.8 % (0.0-4.3) 04/28/17 05:10 Baso % (Auto) 0.8 % (0.0-1.8) 04/28/17 05:10 Lymph # 1.7 K/mm3 (1.2-5.4) 04/28/17 05:10 [place] # 0.8 K/mm3 (0.0-0.8) 04/28/17 05:10 Eos # 0.2 K/mm3 (0.0-0.4) 04/28/17 05:10 Baso # 0.1 K/mm3 (0.0-0.1) 04/28/17 05:10 Add Manual Diff Complete 01/10/17 04:30 Total Counted 100 01/10/17 04:30 Seg Neutrophils % 70.6 % (40.0-70.0) H 04/28/17 05:10 Seg Neuts % (Manual) 88.0 % (40.0-70.0) H 01/10/17 04:30 Band Neutrophils % 7.0 % 01/10/17 04:30 Lymphocytes % (Manual) 4.0 % (13.4-35.0) L 01/10/17 04:30 Reactive Lymphs % (Man) 0 % 01/10/17 04:30 Monocytes % (Manual) 1.0 % (0.0-7.3) 01/10/17 04:30 Eosinophils % (Manual) 0 % (0.0-4.3) 01/10/17 04:30 Basophils % (Manual) 0 % (0.0-1.8) 01/10/17 04:30 Metamyelocytes % 0 % 01/10/17 04:30 Myelocytes % 0 % 01/10/17 04:30 Promyelocytes % 0 % 01/10/17 04:30 Blast Cells % 0 % 01/10/17 04:30 Nucleated RBC % Not Reportable 01/10/17 04:30 Seg Neutrophils # 6.6 K/mm3 (1.8-7.7) 04/28/17 05:10 Seg Neutrophils # Man 21.2 K/mm3 (1.8-7.7) H 01/10/17 04:30 Band Neutrophils # 1.7 K/mm3 01/10/17 04:30 Lymphocytes # (Manual) 1.0 K/mm3 (1.2-5.4) L 01/10/17 04:30 Abs React Lymphs (Man) 0.0 K/mm3 01/10/17 04:30 Monocytes # (Manual) 0.2 K/mm3 (0.0-0.8) 01/10/17 04:30 Eosinophils # (Manual) 0.0 K/mm3 (0.0-0.4) 01/10/17 04:30 Basophils # (Manual) 0.0 K/mm3 (0.0-0.1) 01/10/17 04:30 Metamyelocytes # 0.0 K/mm3 01/10/17 04:30 Myelocytes # 0.0 K/mm3 01/10/17 04:30 Promyelocytes # 0.0 K/mm3 01/10/17 04:30 Blast Cells # 0.0 K/mm3 01/10/17 04:30 WBC Morphology Not Reportable 01/10/17 04:30 Hypersegmented Neuts Not Reportable 01/10/17 04:30 Hyposegmented Neuts Not Reportable 01/10/17 04:30 Hypogranular Neuts Not Reportable 01/10/17 04:30 Smudge Cells Not Reportable 01/10/17 04:30 Toxic Granulation Not Reportable 01/10/17 04:30 Toxic Vacuolation Not Reportable 01/10/17 04:30 Dohle Bodies Not Reportable 01/10/17 04:30 Pelger-Huet Anomaly Not Reportable 01/10/17 04:30 [place] Rods Not Reportable 01/10/17 04:30 Platelet Estimate Consistent w auto 01/10/17 04:30 Clumped Platelets Not Reportable 01/10/17 04:30 Plt Clumps, EDTA Not Reportable 01/10/17 04:30 Large Platelets Not Reportable 01/10/17 04:30 Giant Platelets Not Reportable 01/10/17 04:30 Platelet Satelliting Not Reportable 01/10/17 04:30 Plt Morphology Comment Not Reportable 01/10/17 04:30 RBC Morphology Not Reportable 01/10/17 04:30 Dimorphic RBCs Not Reportable 01/10/17 04:30 Polychromasia Not Reportable 01/10/17 04:30 Hypochromasia 1+ 01/10/17 04:30 Poikilocytosis Not Reportable 01/10/17 04:30 Anisocytosis Not Reportable 01/10/17 04:30 Microcytosis Not Reportable 01/10/17 04:30 Macrocytosis Not Reportable 01/10/17 04:30 Spherocytes Not Reportable 01/10/17 04:30 Pappenheimer Bodies Not Reportable 01/10/17 04:30 Sickle Cells Not Reportable 01/10/17 04:30 Target Cells Not Reportable 01/10/17 04:30 Tear Drop Cells Not Reportable 01/10/17 04:30 Ovalocytes Not Reportable 01/10/17 04:30 Helmet Cells Not Reportable 01/10/17 04:30 [employer] Bodies Not Reportable 01/10/17 04:30 [place] Rings Not Reportable 01/10/17 04:30 Jessica Cells Not Reportable 01/10/17 04:30 Bite Cells Not Reportable 01/10/17 04:30 Crenated Cell Not Reportable 01/10/17 04:30 Elliptocytes Not Reportable 01/10/17 04:30 Acanthocytes (Spur) Not Reportable 01/10/17 04:30 Rouleaux Not Reportable 01/10/17 04:30 Hemoglobin C Crystals Not Reportable 01/10/17 04:30 Schistocytes Not Reportable 01/10/17 04:30 Malaria parasites Not Reportable 01/10/17 04:30 Kyle Bodies Not Reportable 01/10/17 04:30 Hem Pathologist Commnt No 01/10/17 04:30 PT 14.1 Sec. (12.2-14.9) 01/17/17 04:10 INR 1.04 (0.87-1.13) 01/17/17 04:10 APTT 36.6 Sec. (24.2-36.6) 01/17/17 04:10 POC ABG pH 7.442 (7.35-7.45) 01/31/17 18:55 ABG pH 7.420 pH Units (7.350-7.450) 01/17/17 04:35 POC ABG pCO2 32.8 (35-45) L 01/31/17 18:55 ABG pCO2 34.5 mm Hg 01/17/17 04:35 POC ABG pO2 82 (80-105) 01/31/17 18:55 ABG pO2 160.3 mm Hg (80.0-90.0) H 01/17/17 04:35 POC ABG HCO3 22.4 01/31/17 18:55 ABG HCO3 21.9 mmol/L (20.0-26.0) 01/17/17 04:35 POC ABG Total CO2 23 01/31/17 18:55 POC ABG O2 Sat 97 01/31/17 18:55 ABG O2 Saturation 99.0 % (95.0-99.0) 01/17/17 04:35 ABG O2 Content 11.1 (0.0-44) 01/17/17 04:35 POC ABG Base Excess -2 01/31/17 18:55 ABG Base Excess -2.3 mmol/L (-2.0-3.0) L 01/17/17 04:35 ABG Hemoglobin 7.9 gm/dl (14.0-18.0) L 01/17/17 04:35 ABG Carboxyhemoglobin 1.5 % (0.0-5.0) 01/17/17 04:35 ABG Methemoglobin 0.5 % (0.0-1.5) 01/17/17 04:35 VBG pH 7.284 (7.320-7.420) L 01/09/17 10:16 Oxyhemoglobin 97.1 % (95.0-99.0) 01/17/17 04:35 FiO2 25 % 01/31/17 18:55 Sodium 136 mmol/L (137-145) L 04/28/17 05:10 Potassium 4.5 mmol/L (3.6-5.0) 04/28/17 05:10 Chloride 95.2 mmol/L (98-107) L 04/28/17 05:10 Carbon Dioxide 27 mmol/L (22-30) 04/28/17 05:10 Anion Gap 18 mmol/L 04/28/17 05:10 BUN 42 mg/dL (9-20) H 04/28/17 05:10 Creatinine 0.9 mg/dL (0.8-1.5) 04/28/17 05:10 Estimated GFR > 60 ml/min 04/28/17 05:10 BUN/Creatinine Ratio 47 % 04/28/17 05:10 Glucose 63 mg/dL (75-100) L 04/28/17 05:10 POC Glucose 197 (70-105) H 05/27/17 05:52 Lactic Acid 0.80 mmol/L (0.7-2.0) 01/30/17 11:49 Calcium 9.1 mg/dL (8.4-10.2) 04/28/17 05:10 Phosphorus 3.10 mg/dL (2.5-4.5) 03/29/17 04:32 Magnesium 1.90 mg/dL (1.7-2.3) 03/29/17 04:32 Total Bilirubin 0.50 mg/dL (0.1-1.2) 04/28/17 05:10 AST 45 units/L (5-40) H 04/28/17 05:10 ALT 42 units/L (7-56) 04/28/17 05:10 Alkaline Phosphatase 271 units/L (35-129) H 04/28/17 05:10 Ammonia 35.0 umol/L (25-60) 01/09/17 10:16 Total Creatine Kinase 135 units/L (55-170) 01/09/17 10:16 CK-MB (CK-2) 7.1 ng/mL (0.0-4.0) H 01/09/17 10:16 CK-MB (CK-2) Rel Index 5.2 (0-4) H 01/09/17 10:16 Troponin T < 0.010 ng/mL (0.00-0.029) 01/09/17 10:16 NT-Pro-B Natriuret Pep 602.9 pg/mL (0-900) 01/09/17 10:16 Total Protein 8.9 g/dL (6.3-8.2) H 04/28/17 05:10 Albumin 2.5 g/dL (3.9-5) L 04/28/17 05:10 Albumin/Globulin Ratio 0.4 % 04/28/17 05:10 TSH 52.800 mlU/mL (0.270-4.200) H 01/09/17 10:16 Free T4 0.78 ng/dL (0.76-1.46) 01/09/17 10:16 Total Cortisol 54.8 mcg/dL () 01/09/17 16:19 Urine Color Yellow (Yellow) 01/28/17 17:52 Urine Turbidity Clear (Clear) 01/28/17 17:52 Urine pH 6.0 (5.0-7.0) 01/28/17 17:52 Ur Specific [place] 1.016 (1.003-1.030) 01/28/17 17:52 Urine Protein 100 mg/dl mg/dL (Negative) 01/28/17 17:52 Urine Glucose (UA) >=500 mg/dL (Negative) 01/28/17 17:52 Urine Ketones Neg mg/dL (Negative) 01/28/17 17:52 Urine Blood Sm (Negative) 01/28/17 17:52 Urine Nitrite Neg (Negative) 01/28/17 17:52 Urine Bilirubin Neg (Negative) 01/28/17 17:52 Urine Urobilinogen < 2.0 mg/dL (<2.0) 01/28/17 17:52 Ur Leukocyte Esterase Lg (Negative) 01/28/17 17:52 Urine WBC (Auto) > 182.0 /HPF (0.0-6.0) H 01/28/17 17:52 Urine RBC (Auto) 113.0 /HPF (0.0-6.0) 01/28/17 17:52 Urine Bacteria (Auto) 2+ /HPF (Negative) 01/28/17 17:52 Urine WBC Clumps 3+ /HPF 01/28/17 17:52 Urine Mucus Few /HPF 01/14/17 14:07 Urine Yeast (Budding) 3+ /HPF 01/14/17 14:07 Salicylates < 0.3 mg/dL (2.8-20.0) L 01/09/17 10:16 Urine Opiates Screen Presumptive negative 01/09/17 10:23 Urine Methadone Screen Presumptive negative 01/09/17 10:23 Acetaminophen < 15.0 ug/mL (10.0-30.0) 01/09/17 10:16 Ur Barbiturates Screen Presumptive negative 01/09/17 10:23 Ur Phencyclidine Scrn Presumptive negative 01/09/17 10:23 Ur Amphetamines Screen Presumptive negative 01/09/17 10:23 U Benzodiazepines Scrn Presumptive negative 01/09/17 10:23 Urine Cocaine Screen Presumptive negative 01/09/17 10:23 U Marijuana (THC) Screen Presumptive negative 01/09/17 10:23 Drugs of Abuse Note Disclamer 01/09/17 10:23 Plasma/Serum Alcohol < 0.01 gm% (0-0.07) 01/09/17 10:16
[2017-05-28] MEDS: SIMPLE SYRUP FEEDTUBE PRN ×2 (06:22→15:41)
[2017-05-28] MEDS: LEVEMIR (NF) SUB-Q SCH (09:00)
[2017-05-28] MEDS: HEPARIN SUB-Q SCH ×2 (11:03→22:21)
[2017-05-28] MEDS: PEPCID PO SCH ×2 (11:03→22:21)
[2017-05-28] MEDS: HumuLIN R SUB-Q SCH ×3 (14:20→22:20)
[2017-05-29] MEDS: HumuLIN R SUB-Q SCH ×2 (06:26→13:57)
[2017-05-29] MEDS: LEVEMIR (NF) SUB-Q SCH (08:45)
[2017-05-29] MEDS: HEPARIN SUB-Q SCH ×2 (10:44→23:10)
[2017-05-29] MEDS: PEPCID PO SCH ×2 (10:44→23:10)
[2017-05-30] MEDS: HumuLIN R SUB-Q SCH ×4 (06:10→22:00)
[2017-05-30] MEDS: PEPCID PO SCH ×2 (09:35→22:00)
[2017-05-30] MEDS: HEPARIN SUB-Q SCH ×2 (09:35→22:00)
[2017-05-30] MEDS: LEVEMIR (NF) SUB-Q SCH (09:35)
--- NOTE | 2017-05-30 16:12 | Progress Note ---
Assessment and Plan Imp: 1. Hypoglycemia/hypothermia -> suspect due to too much insulin 2. Hypothyroidism; doubt myxedema coma with normal free T4 3. Acute respiratory failure, hypoxia 4. UTI/SIRS 5. Metabolic/anoxic encephalopathy Rec: 1. GI/DVT PPx/TFs 2. Reviewed chart; ethics note 01/18/17 recommended AND and "hospice"; further care felt to be futile and would only prolong potential suffering without affecting ultimate outcome 3. Comfort care, no escalation of care; would not check any further labs, CXRs, or cultures; would not work him up for infections in setting of fever, only treat w/ Tylenol for palliative purposes; would not place another IV either 4. Poor prognosis Unable to locate family. Subjective Date of service: 05/30/17 Principal diagnosis: Acute respiratory failure,encephalopathy Interval history: No events. On vent. Unresponsive. On PSV. Active Medications Acetaminophen/Hydrocodone Bitart ([place] 7.5/325) 1 each PO Q4H PRN PRN Reason: Pain, Moderate (4-6) Lipase/Protease/Amylase ([place] Dr 10,500 Unit) 1 each FEEDTUBE PRN PRN PRN Reason: For Clogged Feeding Tube Dextrose (D50w (25gm) Syringe) 25 ml IV PRN PRN PRN Reason: Hypoglycemia Famotidine (Pepcid) 20 mg PO BID [facility] Last Admin: 05/30/17 09:35 Dose: 20 mg Heparin Sodium (Porcine) (Heparin) 5,000 unit SUB-Q Q12HR [facility] Last Admin: 05/30/17 09:35 Dose: 5,000 unit Hydrophilic Ointment (Vaseline Lip Therapy) 1 applic TP Q2HR PRN PRN Reason: Dry Lips Last Admin: 05/16/17 00:26 Dose: 1 applic Insulin Detemir (Levemir) 5 units SUB-Q QAMDIAB [facility] Last Admin: 05/30/17 09:35 Dose: 5 units Insulin Human Regular (Novolin R) 0 units SUB-Q Q8HR [facility] PRN Reason: Protocol Last Admin: 05/30/17 09:13 Dose: Not Given Multi-Ingred Cream/Lotion/Oil/Oint (Artificial Tears Ophth Oint) 1 applic OU Q4HR PRN PRN Reason: Dry Eye(s) Simple Syrup (Simple Syrup) 15 ml FEEDTUBE PRN PRN PRN Reason: Hypoglycemia Simple Syrup (Simple Syrup) 30 ml FEEDTUBE PRN PRN PRN Reason: Hypoglycemia Last Admin: 05/28/17 15:41 Dose: 30 ml Sodium Bicarbonate (Sodium Bicarbonate) 325 mg FEEDTUBE PRN PRN PRN Reason: For Clogged Feeding Tube Objective Vital Signs - 12hr 05/30/17 05/30/17 05/30/17 04:23 06:00 08:00 Temperature 99.0 F 98.8 F Pulse Rate 77 74 77 Respiratory 12 13 Rate Blood Pressure 110/76 110/76 109/73 O2 Sat by Pulse 96 98 96 Oximetry 05/30/17 05/30/17 05/30/17 08:44 11:58 12:00 Temperature 97.7 F Pulse Rate 72 73 Respiratory 21 26 H Rate Blood Pressure 109/73 O2 Sat by Pulse 25 L 95 Oximetry 05/30/17 15:46 Temperature 99.2 F Pulse Rate Respiratory Rate Blood Pressure O2 Sat by Pulse Oximetry Constitutional: no acute distress, other (on vent) Eyes: non-icteric ENT: oropharynx moist, other (ETT in position) Neck: supple Effort: normal Ascultation: Bilateral: clear Cardiovascular: regular rate and rhythm (no mrg) Gastrointestinal: normoactive bowel sounds, soft, non-tender, non-distended Integumentary: normal Extremities: no cyanosis, no edema, pink and warm Neurologic: pupils equal and round, other (opens eyes spontaneously, but no meaningful responce to stimuli) Psychiatric: other (unable to obtain) CBC and BMP: 04/28/17 05:10 04/28/17 05:10 ABG, PT/INR, D-dimer: ABG POC ABG pH 7.442 (7.35-7.45) 01/31/17 18:55 ABG pH 7.420 pH Units (7.350-7.450) 01/17/17 04:35 POC ABG pCO2 32.8 (35-45) L 01/31/17 18:55 ABG pCO2 34.5 mm Hg 01/17/17 04:35 POC ABG pO2 82 (80-105) 01/31/17 18:55 ABG pO2 160.3 mm Hg (80.0-90.0) H 01/17/17 04:35 POC ABG HCO3 22.4 01/31/17 18:55 POC ABG Total CO2 23 01/31/17 18:55 POC ABG O2 Sat 97 01/31/17 18:55 ABG O2 Saturation 99.0 % (95.0-99.0) 01/17/17 04:35 PT/INR, D-dimer PT 14.1 Sec. (12.2-14.9) 01/17/17 04:10 INR 1.04 (0.87-1.13) 01/17/17 04:10 Abnormal lab findings: Abnormal Labs 01/09/17 01/09/17 01/09/17 10:16 10:16 10:16 WBC RBC Hgb 9.7 L Hct 28.4 L MCV 76 L MCH 26 L RDW 17.2 H Plt Count 448 H Lymph % (Auto) [place] % (Auto) Eos % (Auto) [place] # Seg Neutrophils % 79.5 H Seg Neuts % (Manual) Lymphocytes % (Manual) Seg Neutrophils # Seg Neutrophils # Man Lymphocytes # (Manual) APTT 39.6 H POC ABG pH ABG pH POC ABG pCO2 POC ABG pO2 ABG pO2 ABG HCO3 ABG Base Excess ABG Hemoglobin VBG pH Oxyhemoglobin Sodium 132 L Potassium Chloride 96.7 L Carbon Dioxide 21 L BUN 34 H Creatinine Glucose POC Glucose Lactic Acid Calcium 8.3 L AST ALT Alkaline Phosphatase 151 H CK-MB (CK-2) 7.1 H CK-MB (CK-2) Rel Index 5.2 H Total Protein Albumin 3.3 L TSH Urine WBC (Auto) Salicylates 01/09/17 01/09/17 01/09/17 10:16 10:16 10:16 WBC RBC Hgb Hct MCV MCH RDW Plt Count Lymph % (Auto) [place] % (Auto) Eos % (Auto) [place] # Seg Neutrophils % Seg Neuts % (Manual) Lymphocytes % (Manual) Seg Neutrophils # Seg Neutrophils # Man Lymphocytes # (Manual) APTT POC ABG pH ABG pH POC ABG pCO2 POC ABG pO2 ABG pO2 ABG HCO3 ABG Base Excess ABG Hemoglobin VBG pH 7.284 L Oxyhemoglobin Sodium Potassium Chloride Carbon Dioxide BUN Creatinine Glucose POC Glucose Lactic Acid Calcium AST ALT Alkaline Phosphatase CK-MB (CK-2) CK-MB (CK-2) Rel Index Total Protein Albumin TSH 52.800 H Urine WBC (Auto) Salicylates < 0.3 L 01/09/17 01/09/17 01/09/17 10:23 11:14 12:49 WBC RBC Hgb Hct MCV MCH RDW Plt Count Lymph % (Auto) [place] % (Auto) Eos % (Auto) [place] # Seg Neutrophils % Seg Neuts % (Manual) Lymphocytes % (Manual) Seg Neutrophils # Seg Neutrophils # Man Lymphocytes # (Manual) APTT POC ABG pH ABG pH POC ABG pCO2 POC ABG pO2 643 H ABG pO2 ABG HCO3 ABG Base Excess ABG Hemoglobin VBG pH Oxyhemoglobin Sodium Potassium Chloride Carbon Dioxide BUN Creatinine Glucose POC Glucose < 40 L Lactic Acid Calcium AST ALT Alkaline Phosphatase CK-MB (CK-2) CK-MB (CK-2) Rel Index Total Protein Albumin TSH Urine WBC (Auto) 61.0 H Salicylates 01/09/17 01/09/17 01/09/17 13:13 14:21 15:09 WBC RBC Hgb Hct MCV MCH RDW Plt Count Lymph % (Auto) [place] % (Auto) Eos % (Auto) [place] # Seg Neutrophils % Seg Neuts % (Manual) Lymphocytes % (Manual) Seg Neutrophils # Seg Neutrophils # Man Lymphocytes # (Manual) APTT POC ABG pH ABG pH POC ABG pCO2 POC ABG pO2 ABG pO2 ABG HCO3 ABG Base Excess ABG Hemoglobin VBG pH Oxyhemoglobin Sodium Potassium Chloride Carbon Dioxide BUN Creatinine Glucose POC Glucose 128 H 65 L 120 H Lactic Acid Calcium AST ALT Alkaline Phosphatase CK-MB (CK-2) CK-MB (CK-2) Rel Index Total Protein Albumin TSH Urine WBC (Auto) Salicylates 01/09/17 01/09/17 01/10/17 16:28 17:14 04:30 WBC 24.1 H RBC 3.38 L Hgb 8.5 L Hct 26.0 L MCV 77 L MCH 25 L RDW 17.9 H Plt Count 474 H Lymph % (Auto) [place] % (Auto) Eos % (Auto) [place] # Seg Neutrophils % Seg Neuts % (Manual) 88.0 H Lymphocytes % (Manual) 4.0 L Seg Neutrophils # Seg Neutrophils # Man 21.2 H Lymphocytes # (Manual) 1.0 L APTT POC ABG pH ABG pH POC ABG pCO2 POC ABG pO2 ABG pO2 ABG HCO3 ABG Base Excess ABG Hemoglobin VBG pH Oxyhemoglobin Sodium Potassium Chloride Carbon Dioxide BUN Creatinine Glucose POC Glucose 44 L 112 H Lactic Acid Calcium AST ALT Alkaline Phosphatase CK-MB (CK-2) CK-MB (CK-2) Rel Index Total Protein Albumin TSH Urine WBC (Auto) Salicylates 01/10/17 01/10/17 01/10/17 04:30 05:41 05:45 WBC RBC Hgb Hct MCV MCH RDW Plt Count Lymph % (Auto) [place] % (Auto) Eos % (Auto) [place] # Seg Neutrophils % Seg Neuts % (Manual) Lymphocytes % (Manual) Seg Neutrophils # Seg Neutrophils # Man Lymphocytes # (Manual) APTT POC ABG pH ABG pH POC ABG pCO2 26.6 L POC ABG pO2 207 H ABG pO2 ABG HCO3 ABG Base Excess ABG Hemoglobin VBG pH Oxyhemoglobin Sodium Potassium Chloride Carbon Dioxide 17 L BUN 27 H Creatinine Glucose POC Glucose 68 L Lactic Acid Calcium 7.5 L AST ALT Alkaline Phosphatase CK-MB (CK-2) CK-MB (CK-2) Rel Index Total Protein Albumin TSH Urine WBC (Auto) Salicylates 01/10/17 01/10/17 01/10/17 07:47 10:50 13:41 WBC RBC Hgb Hct MCV MCH RDW Plt Count Lymph % (Auto) [place] % (Auto) Eos % (Auto) [place] # Seg Neutrophils % Seg Neuts % (Manual) Lymphocytes % (Manual) Seg Neutrophils # Seg Neutrophils # Man Lymphocytes # (Manual) APTT POC ABG pH ABG pH POC ABG pCO2 POC ABG pO2 ABG pO2 ABG HCO3 ABG Base Excess ABG Hemoglobin VBG pH Oxyhemoglobin Sodium Potassium Chloride Carbon Dioxide BUN Creatinine Glucose POC Glucose 148 H 165 H 114 H Lactic Acid Calcium AST ALT Alkaline Phosphatase CK-MB (CK-2) CK-MB (CK-2) Rel Index Total Protein Albumin TSH Urine WBC (Auto) Salicylates 01/10/17 01/10/17 01/10/17 20:20 21:39 23:24 WBC RBC Hgb Hct MCV MCH RDW Plt Count Lymph % (Auto) [place] % (Auto) Eos % (Auto) [place] # Seg Neutrophils % Seg Neuts % (Manual) Lymphocytes % (Manual) Seg Neutrophils # Seg Neutrophils # Man Lymphocytes # (Manual) APTT POC ABG pH ABG pH POC ABG pCO2 POC ABG pO2 ABG pO2 ABG HCO3 ABG Base Excess ABG Hemoglobin VBG pH Oxyhemoglobin Sodium Potassium Chloride Carbon Dioxide BUN Creatinine Glucose POC Glucose 150 H 175 H 155 H Lactic Acid Calcium AST ALT Alkaline Phosphatase CK-MB (CK-2) CK-MB (CK-2) Rel Index Total Protein Albumin TSH Urine WBC (Auto) Salicylates 01/11/17 01/11/17 01/11/17 00:19 04:06 05:20 WBC 15.2 H RBC 3.40 L Hgb 8.9 L Hct 26.3 L MCV 78 L MCH 26 L RDW 18.6 H Plt Count 462 H Lymph % (Auto) 13.2 L [place] % (Auto) Eos % (Auto) [place] # Seg Neutrophils % 80.8 H Seg Neuts % (Manual) Lymphocytes % (Manual) Seg Neutrophils # 12.3 H Seg Neutrophils # Man Lymphocytes # (Manual) APTT POC ABG pH 7.463 H ABG pH POC ABG pCO2 26.2 L POC ABG pO2 185 H ABG pO2 ABG HCO3 ABG Base Excess ABG Hemoglobin VBG pH Oxyhemoglobin Sodium Potassium Chloride Carbon Dioxide BUN Creatinine Glucose POC Glucose 163 H Lactic Acid Calcium AST ALT Alkaline Phosphatase CK-MB (CK-2) CK-MB (CK-2) Rel Index Total Protein Albumin TSH Urine WBC (Auto) Salicylates 01/11/17 01/11/17 01/11/17 05:20 06:21 07:57 WBC RBC Hgb Hct MCV MCH RDW Plt Count Lymph % (Auto) [place] % (Auto) Eos % (Auto) [place] # Seg Neutrophils % Seg Neuts % (Manual) Lymphocytes % (Manual) Seg Neutrophils # Seg Neutrophils # Man Lymphocytes # (Manual) APTT POC ABG pH ABG pH POC ABG pCO2 POC ABG pO2 ABG pO2 ABG HCO3 ABG Base Excess ABG Hemoglobin VBG pH Oxyhemoglobin Sodium Potassium 3.4 L Chloride 111.5 H Carbon Dioxide 17 L BUN Creatinine Glucose 147 H POC Glucose 139 H 188 H Lactic Acid Calcium 8.0 L AST ALT Alkaline Phosphatase CK-MB (CK-2) CK-MB (CK-2) Rel Index Total Protein Albumin TSH Urine WBC (Auto) Salicylates 01/11/17 01/11/17 01/11/17 11:46 16:50 23:15 WBC RBC Hgb Hct MCV MCH RDW Plt Count Lymph % (Auto) [place] % (Auto) Eos % (Auto) [place] # Seg Neutrophils % Seg Neuts % (Manual) Lymphocytes % (Manual) Seg Neutrophils # Seg Neutrophils # Man Lymphocytes # (Manual) APTT POC ABG pH ABG pH POC ABG pCO2 POC ABG pO2 ABG pO2 ABG HCO3 ABG Base Excess ABG Hemoglobin VBG pH Oxyhemoglobin Sodium Potassium Chloride Carbon Dioxide BUN Creatinine Glucose POC Glucose 199 H 235 H 155 H Lactic Acid Calcium AST ALT Alkaline Phosphatase CK-MB (CK-2) CK-MB (CK-2) Rel Index Total Protein Albumin TSH Urine WBC (Auto) Salicylates 01/12/17 01/12/17 01/12/17 05:02 06:56 14:50 WBC RBC Hgb Hct MCV MCH RDW Plt Count Lymph % (Auto) [place] % (Auto) Eos % (Auto) [place] # Seg Neutrophils % Seg Neuts % (Manual) Lymphocytes % (Manual) Seg Neutrophils # Seg Neutrophils # Man Lymphocytes # (Manual) APTT POC ABG pH ABG pH POC ABG pCO2 28.0 L POC ABG pO2 178 H ABG pO2 ABG HCO3 ABG Base Excess ABG Hemoglobin VBG pH Oxyhemoglobin Sodium Potassium Chloride Carbon Dioxide BUN Creatinine Glucose POC Glucose 119 H 164 H Lactic Acid Calcium AST ALT Alkaline Phosphatase CK-MB (CK-2) CK-MB (CK-2) Rel Index Total Protein Albumin TSH Urine WBC (Auto) Salicylates 01/13/17 01/13/17 01/13/17 03:37 03:37 04:26 WBC RBC 3.61 L Hgb 9.3 L Hct 28.0 L MCV 78 L MCH 26 L RDW 18.2 H Plt Count Lymph % (Auto) [place] % (Auto) Eos % (Auto) [place] # Seg Neutrophils % Seg Neuts % (Manual) Lymphocytes % (Manual) Seg Neutrophils # Seg Neutrophils # Man Lymphocytes # (Manual) APTT POC ABG pH 7.485 H ABG pH POC ABG pCO2 25.4 L POC ABG pO2 73 L ABG pO2 ABG HCO3 ABG Base Excess ABG Hemoglobin VBG pH Oxyhemoglobin Sodium Potassium Chloride 112.4 H Carbon Dioxide 19 L BUN Creatinine Glucose 118 H POC Glucose Lactic Acid Calcium 8.0 L AST ALT Alkaline Phosphatase CK-MB (CK-2) CK-MB (CK-2) Rel Index Total Protein Albumin TSH Urine WBC (Auto) Salicylates 01/13/17 01/13/17 01/13/17 06:15 11:50 17:31 WBC RBC Hgb Hct MCV MCH RDW Plt Count Lymph % (Auto) [place] % (Auto) Eos % (Auto) [place] # Seg Neutrophils % Seg Neuts % (Manual) Lymphocytes % (Manual) Seg Neutrophils # Seg Neutrophils # Man Lymphocytes # (Manual) APTT POC ABG pH ABG pH POC ABG pCO2 POC ABG pO2 ABG pO2 ABG HCO3 ABG Base Excess ABG Hemoglobin VBG pH Oxyhemoglobin Sodium Potassium Chloride Carbon Dioxide BUN Creatinine Glucose POC Glucose 116 H 171 H 203 H Lactic Acid Calcium AST ALT Alkaline Phosphatase CK-MB (CK-2) CK-MB (CK-2) Rel Index Total Protein Albumin TSH Urine WBC (Auto) Salicylates 01/14/17 01/14/17 01/14/17 00:02 04:50 04:50 WBC RBC 3.32 L Hgb 8.5 L Hct 26.1 L MCV 79 L MCH 26 L RDW 18.2 H Plt Count Lymph % (Auto) [place] % (Auto) 9.0 H Eos % (Auto) [place] # Seg Neutrophils % Seg Neuts % (Manual) Lymphocytes % (Manual) Seg Neutrophils # Seg Neutrophils # Man Lymphocytes # (Manual) APTT POC ABG pH ABG pH POC ABG pCO2 POC ABG pO2 ABG pO2 ABG HCO3 ABG Base Excess ABG Hemoglobin VBG pH Oxyhemoglobin Sodium Potassium Chloride 112.5 H Carbon Dioxide BUN Creatinine Glucose 149 H POC Glucose 157 H Lactic Acid Calcium 8.1 L AST ALT Alkaline Phosphatase CK-MB (CK-2) CK-MB (CK-2) Rel Index Total Protein Albumin TSH Urine WBC (Auto) Salicylates 01/14/17 01/14/17 01/14/17 05:10 11:27 14:07 WBC RBC Hgb Hct MCV MCH RDW Plt Count Lymph % (Auto) [place] % (Auto) Eos % (Auto) [place] # Seg Neutrophils % Seg Neuts % (Manual) Lymphocytes % (Manual) Seg Neutrophils # Seg Neutrophils # Man Lymphocytes # (Manual) APTT POC ABG pH ABG pH POC ABG pCO2 POC ABG pO2 ABG pO2 ABG HCO3 ABG Base Excess ABG Hemoglobin VBG pH Oxyhemoglobin Sodium Potassium Chloride Carbon Dioxide BUN Creatinine Glucose POC Glucose 176 H 147 H Lactic Acid Calcium AST ALT Alkaline Phosphatase CK-MB (CK-2) CK-MB (CK-2) Rel Index Total Protein Albumin TSH Urine WBC (Auto) 53.0 H Salicylates 01/14/17 01/15/17 01/15/17 16:52 00:04 05:26 WBC RBC Hgb Hct MCV MCH RDW Plt Count Lymph % (Auto) [place] % (Auto) Eos % (Auto) [place] # Seg Neutrophils % Seg Neuts % (Manual) Lymphocytes % (Manual) Seg Neutrophils # Seg Neutrophils # Man Lymphocytes # (Manual) APTT POC ABG pH ABG pH POC ABG pCO2 POC ABG pO2 ABG pO2 ABG HCO3 ABG Base Excess ABG Hemoglobin VBG pH Oxyhemoglobin Sodium Potassium Chloride Carbon Dioxide BUN Creatinine Glucose POC Glucose 131 H 193 H 215 H Lactic Acid Calcium AST ALT Alkaline Phosphatase CK-MB (CK-2) CK-MB (CK-2) Rel Index Total Protein Albumin TSH Urine WBC (Auto) Salicylates 01/15/17 01/15/17 01/15/17 11:49 17:47 21:33 WBC RBC Hgb Hct MCV MCH RDW Plt Count Lymph % (Auto) [place] % (Auto) Eos % (Auto) [place] # Seg Neutrophils % Seg Neuts % (Manual) Lymphocytes % (Manual) Seg Neutrophils # Seg Neutrophils # Man Lymphocytes # (Manual) APTT POC ABG pH ABG pH POC ABG pCO2 POC ABG pO2 ABG pO2 ABG HCO3 ABG Base Excess ABG Hemoglobin VBG pH Oxyhemoglobin Sodium Potassium Chloride Carbon Dioxide BUN Creatinine Glucose POC Glucose 121 H 211 H 275 H Lactic Acid Calcium AST ALT Alkaline Phosphatase CK-MB (CK-2) CK-MB (CK-2) Rel Index Total Protein Albumin TSH Urine WBC (Auto) Salicylates 01/16/17 01/16/17 01/16/17 04:30 05:28 13:45 WBC RBC Hgb Hct MCV MCH RDW Plt Count Lymph % (Auto) [place] % (Auto) Eos % (Auto) [place] # Seg Neutrophils % Seg Neuts % (Manual) Lymphocytes % (Manual) Seg Neutrophils # Seg Neutrophils # Man Lymphocytes # (Manual) APTT POC ABG pH ABG pH 7.457 H POC ABG pCO2 POC ABG pO2 ABG pO2 55.1 L ABG HCO3 19.4 L ABG Base Excess -4.0 L ABG Hemoglobin 6.8 L VBG pH Oxyhemoglobin 94.9 L Sodium Potassium Chloride Carbon Dioxide BUN Creatinine Glucose POC Glucose 271 H 236 H Lactic Acid Calcium AST ALT Alkaline Phosphatase CK-MB (CK-2) CK-MB (CK-2) Rel Index Total Protein Albumin TSH Urine WBC (Auto) Salicylates 01/16/17 01/17/17 01/17/17 21:39 04:10 04:10 WBC 4.4 L RBC 2.98 L Hgb 7.7 L Hct 23.3 L MCV 78 L MCH 26 L RDW 18.1 H Plt Count Lymph % (Auto) [place] % (Auto) Eos % (Auto) [place] # Seg Neutrophils % Seg Neuts % (Manual) Lymphocytes % (Manual) Seg Neutrophils # Seg Neutrophils # Man Lymphocytes # (Manual) APTT POC ABG pH ABG pH POC ABG pCO2 POC ABG pO2 ABG pO2 ABG HCO3 ABG Base Excess ABG Hemoglobin VBG pH Oxyhemoglobin Sodium Potassium 3.3 L Chloride 108.7 H Carbon Dioxide 20 L BUN 8 L Creatinine Glucose 202 H POC Glucose 258 H Lactic Acid Calcium 7.6 L AST ALT Alkaline Phosphatase CK-MB (CK-2) CK-MB (CK-2) Rel Index Total Protein Albumin TSH Urine WBC (Auto) Salicylates 01/17/17 01/17/17 01/17/17 04:35 12:23 16:01 WBC RBC Hgb Hct MCV MCH RDW Plt Count Lymph % (Auto) [place] % (Auto) Eos % (Auto) [place] # Seg Neutrophils % Seg Neuts % (Manual) Lymphocytes % (Manual) Seg Neutrophils # Seg Neutrophils # Man Lymphocytes # (Manual) APTT POC ABG pH ABG pH POC ABG pCO2 POC ABG pO2 ABG pO2 160.3 H ABG HCO3 ABG Base Excess -2.3 L ABG Hemoglobin 7.9 L VBG pH Oxyhemoglobin Sodium Potassium Chloride Carbon Dioxide BUN Creatinine Glucose POC Glucose 321 H 239 H Lactic Acid Calcium AST ALT Alkaline Phosphatase CK-MB (CK-2) CK-MB (CK-2) Rel Index Total Protein Albumin TSH Urine WBC (Auto) Salicylates 01/18/17 01/18/17 01/18/17 05:07 12:09 17:54 WBC RBC Hgb Hct MCV MCH RDW Plt Count Lymph % (Auto) [place] % (Auto) Eos % (Auto) [place] # Seg Neutrophils % Seg Neuts % (Manual) Lymphocytes % (Manual) Seg Neutrophils # Seg Neutrophils # Man Lymphocytes # (Manual) APTT POC ABG pH ABG pH POC ABG pCO2 POC ABG pO2 ABG pO2 ABG HCO3 ABG Base Excess ABG Hemoglobin VBG pH Oxyhemoglobin Sodium Potassium Chloride Carbon Dioxide BUN Creatinine Glucose POC Glucose 155 H 203 H 132 H Lactic Acid Calcium AST ALT Alkaline Phosphatase CK-MB (CK-2) CK-MB (CK-2) Rel Index Total Protein Albumin TSH Urine WBC (Auto) Salicylates 01/18/17 01/19/17 01/19/17 23:43 04:28 12:11 WBC RBC Hgb Hct MCV MCH RDW Plt Count Lymph % (Auto) [place] % (Auto) Eos % (Auto) [place] # Seg Neutrophils % Seg Neuts % (Manual) Lymphocytes % (Manual) Seg Neutrophils # Seg Neutrophils # Man Lymphocytes # (Manual) APTT POC ABG pH ABG pH POC ABG pCO2 POC ABG pO2 ABG pO2 ABG HCO3 ABG Base Excess ABG Hemoglobin VBG pH Oxyhemoglobin Sodium Potassium Chloride Carbon Dioxide BUN Creatinine Glucose POC Glucose 125 H 182 H 153 H Lactic Acid Calcium AST ALT Alkaline Phosphatase CK-MB (CK-2) CK-MB (CK-2) Rel Index Total Protein Albumin TSH Urine WBC (Auto) Salicylates 01/19/17 01/20/17 01/20/17 17:23 00:12 05:44 WBC RBC Hgb Hct MCV MCH RDW Plt Count Lymph % (Auto) [place] % (Auto) Eos % (Auto) [place] # Seg Neutrophils % Seg Neuts % (Manual) Lymphocytes % (Manual) Seg Neutrophils # Seg Neutrophils # Man Lymphocytes # (Manual) APTT POC ABG pH ABG pH POC ABG pCO2 POC ABG pO2 ABG pO2 ABG HCO3 ABG Base Excess ABG Hemoglobin VBG pH Oxyhemoglobin Sodium Potassium Chloride Carbon Dioxide BUN Creatinine Glucose POC Glucose 66 L 139 H 176 H Lactic Acid Calcium AST ALT Alkaline Phosphatase CK-MB (CK-2) CK-MB (CK-2) Rel Index Total Protein Albumin TSH Urine WBC (Auto) Salicylates 01/20/17 01/20/17 01/20/17 11:48 17:42 23:43 WBC RBC Hgb Hct MCV MCH RDW Plt Count Lymph % (Auto) [place] % (Auto) Eos % (Auto) [place] # Seg Neutrophils % Seg Neuts % (Manual) Lymphocytes % (Manual) Seg Neutrophils # Seg Neutrophils # Man Lymphocytes # (Manual) APTT POC ABG pH ABG pH POC ABG pCO2 POC ABG pO2 ABG pO2 ABG HCO3 ABG Base Excess ABG Hemoglobin VBG pH Oxyhemoglobin Sodium Potassium Chloride Carbon Dioxide BUN Creatinine Glucose POC Glucose 218 H 132 H 178 H Lactic Acid Calcium AST ALT Alkaline Phosphatase CK-MB (CK-2) CK-MB (CK-2) Rel Index Total Protein Albumin TSH Urine WBC (Auto) Salicylates 01/21/17 01/21/17 01/21/17 05:34 11:17 23:37 WBC RBC Hgb Hct MCV MCH RDW Plt Count Lymph % (Auto) [place] % (Auto) Eos % (Auto) [place] # Seg Neutrophils % Seg Neuts % (Manual) Lymphocytes % (Manual) Seg Neutrophils # Seg Neutrophils # Man Lymphocytes # (Manual) APTT POC ABG pH ABG pH POC ABG pCO2 POC ABG pO2 ABG pO2 ABG HCO3 ABG Base Excess ABG Hemoglobin VBG pH Oxyhemoglobin Sodium Potassium Chloride Carbon Dioxide BUN Creatinine Glucose POC Glucose 106 H 213 H 140 H Lactic Acid Calcium AST ALT Alkaline Phosphatase CK-MB (CK-2) CK-MB (CK-2) Rel Index Total Protein Albumin TSH Urine WBC (Auto) Salicylates 01/22/17 01/22/17 01/22/17 04:00 04:00 04:58 WBC RBC 3.26 L Hgb 8.3 L Hct 25.5 L MCV 78 L MCH 25 L RDW 17.9 H Plt Count Lymph % (Auto) [place] % (Auto) 7.9 H Eos % (Auto) 6.2 H [place] # Seg Neutrophils % Seg Neuts % (Manual) Lymphocytes % (Manual) Seg Neutrophils # Seg Neutrophils # Man Lymphocytes # (Manual) APTT POC ABG pH ABG pH POC ABG pCO2 POC ABG pO2 ABG pO2 ABG HCO3 ABG Base Excess ABG Hemoglobin VBG pH Oxyhemoglobin Sodium Potassium Chloride 95.5 L Carbon Dioxide 31 H D BUN Creatinine Glucose 134 H POC Glucose 146 H Lactic Acid Calcium AST 44 H ALT Alkaline Phosphatase 379 H CK-MB (CK-2) CK-MB (CK-2) Rel Index Total Protein Albumin 2.7 L TSH Urine WBC (Auto) Salicylates 01/22/17 01/22/17 01/22/17 12:12 18:12 23:39 WBC RBC Hgb Hct MCV MCH RDW Plt Count Lymph % (Auto) [place] % (Auto) Eos % (Auto) [place] # Seg Neutrophils % Seg Neuts % (Manual) Lymphocytes % (Manual) Seg Neutrophils # Seg Neutrophils # Man Lymphocytes # (Manual) APTT POC ABG pH ABG pH POC ABG pCO2 POC ABG pO2 ABG pO2 ABG HCO3 ABG Base Excess ABG Hemoglobin VBG pH Oxyhemoglobin Sodium Potassium Chloride Carbon Dioxide BUN Creatinine Glucose POC Glucose 255 H 182 H 134 H Lactic Acid Calcium AST ALT Alkaline Phosphatase CK-MB (CK-2) CK-MB (CK-2) Rel Index Total Protein Albumin TSH Urine WBC (Auto) Salicylates 01/23/17 01/23/17 01/23/17 04:43 12:12 17:36 WBC RBC Hgb Hct MCV MCH RDW Plt Count Lymph % (Auto) [place] % (Auto) Eos % (Auto) [place] # Seg Neutrophils % Seg Neuts % (Manual) Lymphocytes % (Manual) Seg Neutrophils # Seg Neutrophils # Man Lymphocytes # (Manual) APTT POC ABG pH ABG pH POC ABG pCO2 POC ABG pO2 ABG pO2 ABG HCO3 ABG Base Excess ABG Hemoglobin VBG pH Oxyhemoglobin Sodium Potassium Chloride Carbon Dioxide BUN Creatinine Glucose POC Glucose 218 H 128 H 156 H Lactic Acid Calcium AST ALT Alkaline Phosphatase CK-MB (CK-2) CK-MB (CK-2) Rel Index Total Protein Albumin TSH Urine WBC (Auto) Salicylates 01/24/17 01/24/17 01/24/17 00:08 05:16 11:40 WBC RBC Hgb Hct MCV MCH RDW Plt Count Lymph % (Auto) [place] % (Auto) Eos % (Auto) [place] # Seg Neutrophils % Seg Neuts % (Manual) Lymphocytes % (Manual) Seg Neutrophils # Seg Neutrophils # Man Lymphocytes # (Manual) APTT POC ABG pH ABG pH POC ABG pCO2 POC ABG pO2 ABG pO2 ABG HCO3 ABG Base Excess ABG Hemoglobin VBG pH Oxyhemoglobin Sodium Potassium Chloride Carbon Dioxide BUN Creatinine Glucose POC Glucose 129 H 169 H 187 H Lactic Acid Calcium AST ALT Alkaline Phosphatase CK-MB (CK-2) CK-MB (CK-2) Rel Index Total Protein Albumin TSH Urine WBC (Auto) Salicylates 01/24/17 01/24/17 01/25/17 17:43 23:23 04:56 WBC RBC Hgb Hct MCV MCH RDW Plt Count Lymph % (Auto) [place] % (Auto) Eos % (Auto) [place] # Seg Neutrophils % Seg Neuts % (Manual) Lymphocytes % (Manual) Seg Neutrophils # Seg Neutrophils # Man Lymphocytes # (Manual) APTT POC ABG pH ABG pH POC ABG pCO2 POC ABG pO2 ABG pO2 ABG HCO3 ABG Base Excess ABG Hemoglobin VBG pH Oxyhemoglobin Sodium Potassium Chloride Carbon Dioxide BUN Creatinine Glucose POC Glucose 215 H 222 H 210 H Lactic Acid Calcium AST ALT Alkaline Phosphatase CK-MB (CK-2) CK-MB (CK-2) Rel Index Total Protein Albumin TSH Urine WBC (Auto) Salicylates 01/25/17 01/25/17 01/26/17 11:52 17:37 00:02 WBC RBC Hgb Hct MCV MCH RDW Plt Count Lymph % (Auto) [place] % (Auto) Eos % (Auto) [place] # Seg Neutrophils % Seg Neuts % (Manual) Lymphocytes % (Manual) Seg Neutrophils # Seg Neutrophils # Man Lymphocytes # (Manual) APTT POC ABG pH ABG pH POC ABG pCO2 POC ABG pO2 ABG pO2 ABG HCO3 ABG Base Excess ABG Hemoglobin VBG pH Oxyhemoglobin Sodium Potassium Chloride Carbon Dioxide BUN Creatinine Glucose POC Glucose 284 H 218 H 192 H Lactic Acid Calcium AST ALT Alkaline Phosphatase CK-MB (CK-2) CK-MB (CK-2) Rel Index Total Protein Albumin TSH Urine WBC (Auto) Salicylates 01/26/17 01/26/17 01/26/17 05:33 12:17 17:50 WBC RBC Hgb Hct MCV MCH RDW Plt Count Lymph % (Auto) [place] % (Auto) Eos % (Auto) [place] # Seg Neutrophils % Seg Neuts % (Manual) Lymphocytes % (Manual) Seg Neutrophils # Seg Neutrophils # Man Lymphocytes # (Manual) APTT POC ABG pH ABG pH POC ABG pCO2 POC ABG pO2 ABG pO2 ABG HCO3 ABG Base Excess ABG Hemoglobin VBG pH Oxyhemoglobin Sodium Potassium Chloride Carbon Dioxide BUN Creatinine Glucose POC Glucose 199 H 227 H 229 H Lactic Acid Calcium AST ALT Alkaline Phosphatase CK-MB (CK-2) CK-MB (CK-2) Rel Index Total Protein Albumin TSH Urine WBC (Auto) Salicylates 01/26/17 01/27/17 01/27/17 23:57 05:31 11:42 WBC RBC Hgb Hct MCV MCH RDW Plt Count Lymph % (Auto) [place] % (Auto) Eos % (Auto) [place] # Seg Neutrophils % Seg Neuts % (Manual) Lymphocytes % (Manual) Seg Neutrophils # Seg Neutrophils # Man Lymphocytes # (Manual) APTT POC ABG pH ABG pH POC ABG pCO2 POC ABG pO2 ABG pO2 ABG HCO3 ABG Base Excess ABG Hemoglobin VBG pH Oxyhemoglobin Sodium Potassium Chloride Carbon Dioxide BUN Creatinine Glucose POC Glucose 186 H 285 H 260 H Lactic Acid Calcium AST ALT Alkaline Phosphatase CK-MB (CK-2) CK-MB (CK-2) Rel Index Total Protein Albumin TSH Urine WBC (Auto) Salicylates 01/27/17 01/27/17 01/27/17 17:47 23:58 Unknown WBC 12.1 H RBC 3.28 L Hgb 8.5 L Hct 25.5 L MCV 78 L MCH 26 L RDW 16.8 H Plt Count 601 H Lymph % (Auto) [place] % (Auto) Eos % (Auto) [place] # Seg Neutrophils % Seg Neuts % (Manual) Lymphocytes % (Manual) Seg Neutrophils # Seg Neutrophils # Man Lymphocytes # (Manual) APTT POC ABG pH ABG pH POC ABG pCO2 POC ABG pO2 ABG pO2 ABG HCO3 ABG Base Excess ABG Hemoglobin VBG pH Oxyhemoglobin Sodium Potassium Chloride Carbon Dioxide BUN Creatinine Glucose POC Glucose 329 H 225 H Lactic Acid Calcium AST ALT Alkaline Phosphatase CK-MB (CK-2) CK-MB (CK-2) Rel Index Total Protein Albumin TSH Urine WBC (Auto) Salicylates 01/27/17 01/28/17 01/28/17 Unknown 03:44 03:44 WBC RBC 3.14 L Hgb 8.2 L Hct 24.1 L MCV 77 L MCH 26 L RDW 16.9 H Plt Count 567 H Lymph % (Auto) [place] % (Auto) Eos % (Auto) [place] # Seg Neutrophils % Seg Neuts % (Manual) Lymphocytes % (Manual) Seg Neutrophils # Seg Neutrophils # Man Lymphocytes # (Manual) APTT POC ABG pH ABG pH POC ABG pCO2 POC ABG pO2 ABG pO2 ABG HCO3 ABG Base Excess ABG Hemoglobin VBG pH Oxyhemoglobin Sodium 128 L Potassium 5.4 H Chloride 87.5 L Carbon Dioxide BUN 44 H 42 H Creatinine Glucose 250 H 128 H POC Glucose Lactic Acid Calcium AST ALT Alkaline Phosphatase CK-MB (CK-2) CK-MB (CK-2) Rel Index Total Protein Albumin TSH Urine WBC (Auto) Salicylates 01/28/17 01/28/17 01/28/17 11:43 16:47 17:52 WBC RBC Hgb Hct MCV MCH RDW Plt Count Lymph % (Auto) [place] % (Auto) Eos % (Auto) [place] # Seg Neutrophils % Seg Neuts % (Manual) Lymphocytes % (Manual) Seg Neutrophils # Seg Neutrophils # Man Lymphocytes # (Manual) APTT POC ABG pH ABG pH POC ABG pCO2 POC ABG pO2 ABG pO2 ABG HCO3 ABG Base Excess ABG Hemoglobin VBG pH Oxyhemoglobin Sodium Potassium Chloride Carbon Dioxide BUN Creatinine Glucose POC Glucose 351 H 249 H Lactic Acid Calcium AST ALT Alkaline Phosphatase CK-MB (CK-2) CK-MB (CK-2) Rel Index Total Protein Albumin TSH Urine WBC (Auto) > 182.0 H Salicylates 01/29/17 01/29/17 01/29/17 05:25 05:25 09:32 WBC 13.6 H RBC 3.25 L Hgb 8.3 L Hct 25.1 L MCV 77 L MCH 26 L RDW 16.8 H Plt Count 514 H Lymph % (Auto) [place] % (Auto) Eos % (Auto) [place] # Seg Neutrophils % Seg Neuts % (Manual) Lymphocytes % (Manual) Seg Neutrophils # Seg Neutrophils # Man Lymphocytes # (Manual) APTT POC ABG pH ABG pH POC ABG pCO2 POC ABG pO2 ABG pO2 ABG HCO3 ABG Base Excess ABG Hemoglobin VBG pH Oxyhemoglobin Sodium Potassium Chloride 97.8 L Carbon Dioxide BUN 34 H Creatinine Glucose 222 H POC Glucose Lactic Acid 2.50 H* Calcium AST ALT Alkaline Phosphatase CK-MB (CK-2) CK-MB (CK-2) Rel Index Total Protein Albumin TSH Urine WBC (Auto) Salicylates 01/29/17 01/29/17 01/29/17 11:56 18:11 23:55 WBC RBC Hgb Hct MCV MCH RDW Plt Count Lymph % (Auto) [place] % (Auto) Eos % (Auto) [place] # Seg Neutrophils % Seg Neuts % (Manual) Lymphocytes % (Manual) Seg Neutrophils # Seg Neutrophils # Man Lymphocytes # (Manual) APTT POC ABG pH ABG pH POC ABG pCO2 POC ABG pO2 ABG pO2 ABG HCO3 ABG Base Excess ABG Hemoglobin VBG pH Oxyhemoglobin Sodium Potassium Chloride Carbon Dioxide BUN Creatinine Glucose POC Glucose 261 H 215 H 176 H Lactic Acid Calcium AST ALT Alkaline Phosphatase CK-MB (CK-2) CK-MB (CK-2) Rel Index Total Protein Albumin TSH Urine WBC (Auto) Salicylates 01/30/17 01/30/17 01/30/17 05:31 05:31 05:34 WBC 15.2 H RBC 3.09 L Hgb 7.9 L Hct 23.9 L MCV 77 L MCH 26 L RDW 16.9 H Plt Count 569 H Lymph % (Auto) [place] % (Auto) Eos % (Auto) [place] # Seg Neutrophils % Seg Neuts % (Manual) Lymphocytes % (Manual) Seg Neutrophils # Seg Neutrophils # Man Lymphocytes # (Manual) APTT POC ABG pH ABG pH POC ABG pCO2 POC ABG pO2 ABG pO2 ABG HCO3 ABG Base Excess ABG Hemoglobin VBG pH Oxyhemoglobin Sodium Potassium Chloride Carbon Dioxide BUN 24 H Creatinine Glucose 235 H POC Glucose 243 H Lactic Acid Calcium AST ALT Alkaline Phosphatase CK-MB (CK-2) CK-MB (CK-2) Rel Index Total Protein Albumin TSH Urine WBC (Auto) Salicylates 01/30/17 01/30/17 01/30/17 11:38 17:58 23:29 WBC RBC Hgb Hct MCV MCH RDW Plt Count Lymph % (Auto) [place] % (Auto) Eos % (Auto) [place] # Seg Neutrophils % Seg Neuts % (Manual) Lymphocytes % (Manual) Seg Neutrophils # Seg Neutrophils # Man Lymphocytes # (Manual) APTT POC ABG pH ABG pH POC ABG pCO2 POC ABG pO2 ABG pO2 ABG HCO3 ABG Base Excess ABG Hemoglobin VBG pH Oxyhemoglobin Sodium Potassium Chloride Carbon Dioxide BUN Creatinine Glucose POC Glucose 298 H 208 H 245 H Lactic Acid Calcium AST ALT Alkaline Phosphatase CK-MB (CK-2) CK-MB (CK-2) Rel Index Total Protein Albumin TSH Urine WBC (Auto) Salicylates 01/31/17 01/31/17 01/31/17 04:39 04:39 05:57 WBC 11.4 H RBC 3.22 L Hgb 8.2 L Hct 24.9 L MCV 78 L MCH 25 L RDW 17.2 H Plt Count 576 H Lymph % (Auto) [place] % (Auto) Eos % (Auto) [place] # Seg Neutrophils % Seg Neuts % (Manual) Lymphocytes % (Manual) Seg Neutrophils # Seg Neutrophils # Man Lymphocytes # (Manual) APTT POC ABG pH ABG pH POC ABG pCO2 POC ABG pO2 ABG pO2 ABG HCO3 ABG Base Excess ABG Hemoglobin VBG pH Oxyhemoglobin Sodium Potassium Chloride Carbon Dioxide BUN Creatinine 0.7 L Glucose 223 H POC Glucose 264 H Lactic Acid Calcium AST ALT Alkaline Phosphatase CK-MB (CK-2) CK-MB (CK-2) Rel Index Total Protein Albumin TSH Urine WBC (Auto) Salicylates 01/31/17 01/31/17 01/31/17 12:23 17:41 18:55 WBC RBC Hgb Hct MCV MCH RDW Plt Count Lymph % (Auto) [place] % (Auto) Eos % (Auto) [place] # Seg Neutrophils % Seg Neuts % (Manual) Lymphocytes % (Manual) Seg Neutrophils # Seg Neutrophils # Man Lymphocytes # (Manual) APTT POC ABG pH ABG pH POC ABG pCO2 32.8 L POC ABG pO2 ABG pO2 ABG HCO3 ABG Base Excess ABG Hemoglobin VBG pH Oxyhemoglobin Sodium Potassium Chloride Carbon Dioxide BUN Creatinine Glucose POC Glucose 252 H 208 H Lactic Acid Calcium AST ALT Alkaline Phosphatase CK-MB (CK-2) CK-MB (CK-2) Rel Index Total Protein Albumin TSH Urine WBC (Auto) Salicylates 01/31/17 02/01/17 02/01/17 22:59 03:38 03:38 WBC RBC 2.81 L Hgb 7.4 L Hct 22.1 L MCV 79 L MCH 27 L RDW 17.0 H Plt Count 540 H Lymph % (Auto) [place] % (Auto) Eos % (Auto) [place] # Seg Neutrophils % Seg Neuts % (Manual) Lymphocytes % (Manual) Seg Neutrophils # Seg Neutrophils # Man Lymphocytes # (Manual) APTT POC ABG pH ABG pH POC ABG pCO2 POC ABG pO2 ABG pO2 ABG HCO3 ABG Base Excess ABG Hemoglobin VBG pH Oxyhemoglobin Sodium Potassium Chloride Carbon Dioxide 21 L BUN Creatinine 0.7 L Glucose POC Glucose 40 L Lactic Acid Calcium AST ALT Alkaline Phosphatase CK-MB (CK-2) CK-MB (CK-2) Rel Index Total Protein Albumin TSH Urine WBC (Auto) Salicylates 02/01/17 02/01/17 02/01/17 05:17 12:19 16:44 WBC RBC Hgb Hct MCV MCH RDW Plt Count Lymph % (Auto) [place] % (Auto) Eos % (Auto) [place] # Seg Neutrophils % Seg Neuts % (Manual) Lymphocytes % (Manual) Seg Neutrophils # Seg Neutrophils # Man Lymphocytes # (Manual) APTT POC ABG pH ABG pH POC ABG pCO2 POC ABG pO2 ABG pO2 ABG HCO3 ABG Base Excess ABG Hemoglobin VBG pH Oxyhemoglobin Sodium Potassium Chloride Carbon Dioxide BUN Creatinine Glucose POC Glucose 140 H 213 H 172 H Lactic Acid Calcium AST ALT Alkaline Phosphatase CK-MB (CK-2) CK-MB (CK-2) Rel Index Total Protein Albumin TSH Urine WBC (Auto) Salicylates 02/01/17 02/02/17 02/02/17 23:59 05:14 11:24 WBC RBC Hgb Hct MCV MCH RDW Plt Count Lymph % (Auto) [place] % (Auto) Eos % (Auto) [place] # Seg Neutrophils % Seg Neuts % (Manual) Lymphocytes % (Manual) Seg Neutrophils # Seg Neutrophils # Man Lymphocytes # (Manual) APTT POC ABG pH ABG pH POC ABG pCO2 POC ABG pO2 ABG pO2 ABG HCO3 ABG Base Excess ABG Hemoglobin VBG pH Oxyhemoglobin Sodium Potassium Chloride Carbon Dioxide BUN Creatinine Glucose POC Glucose 181 H 194 H 209 H Lactic Acid Calcium AST ALT Alkaline Phosphatase CK-MB (CK-2) CK-MB (CK-2) Rel Index Total Protein Albumin TSH Urine WBC (Auto) Salicylates 02/02/17 02/02/17 02/02/17 11:46 11:46 17:47 WBC RBC 2.94 L Hgb 7.5 L Hct 23.0 L MCV 78 L MCH 25 L RDW 16.9 H Plt Count 520 H Lymph % (Auto) [place] % (Auto) Eos % (Auto) [place] # Seg Neutrophils % Seg Neuts % (Manual) Lymphocytes % (Manual) Seg Neutrophils # Seg Neutrophils # Man Lymphocytes # (Manual) APTT POC ABG pH ABG pH POC ABG pCO2 POC ABG pO2 ABG pO2 ABG HCO3 ABG Base Excess ABG Hemoglobin VBG pH Oxyhemoglobin Sodium Potassium Chloride Carbon Dioxide BUN Creatinine 0.6 L Glucose 189 H POC Glucose 147 H Lactic Acid Calcium 8.1 L AST ALT Alkaline Phosphatase CK-MB (CK-2) CK-MB (CK-2) Rel Index Total Protein Albumin TSH Urine WBC (Auto) Salicylates 02/02/17 02/03/17 02/03/17 23:32 05:53 11:19 WBC RBC Hgb Hct MCV MCH RDW Plt Count Lymph % (Auto) [place] % (Auto) Eos % (Auto) [place] # Seg Neutrophils % Seg Neuts % (Manual) Lymphocytes % (Manual) Seg Neutrophils # Seg Neutrophils # Man Lymphocytes # (Manual) APTT POC ABG pH ABG pH POC ABG pCO2 POC ABG pO2 ABG pO2 ABG HCO3 ABG Base Excess ABG Hemoglobin VBG pH Oxyhemoglobin Sodium Potassium Chloride Carbon Dioxide BUN Creatinine Glucose POC Glucose 176 H 224 H 228 H Lactic Acid Calcium AST ALT Alkaline Phosphatase CK-MB (CK-2) CK-MB (CK-2) Rel Index Total Protein Albumin TSH Urine WBC (Auto) Salicylates 02/03/17 02/03/17 02/04/17 16:59 23:38 05:45 WBC RBC Hgb Hct MCV MCH RDW Plt Count Lymph % (Auto) [place] % (Auto) Eos % (Auto) [place] # Seg Neutrophils % Seg Neuts % (Manual) Lymphocytes % (Manual) Seg Neutrophils # Seg Neutrophils # Man Lymphocytes # (Manual) APTT POC ABG pH ABG pH POC ABG pCO2 POC ABG pO2 ABG pO2 ABG HCO3 ABG Base Excess ABG Hemoglobin VBG pH Oxyhemoglobin Sodium Potassium Chloride Carbon Dioxide BUN Creatinine Glucose POC Glucose 189 H 191 H 251 H Lactic Acid Calcium AST ALT Alkaline Phosphatase CK-MB (CK-2) CK-MB (CK-2) Rel Index Total Protein Albumin TSH Urine WBC (Auto) Salicylates 02/04/17 02/04/17 02/05/17 11:20 17:20 00:17 WBC RBC Hgb Hct MCV MCH RDW Plt Count Lymph % (Auto) [place] % (Auto) Eos % (Auto) [place] # Seg Neutrophils % Seg Neuts % (Manual) Lymphocytes % (Manual) Seg Neutrophils # Seg Neutrophils # Man Lymphocytes # (Manual) APTT POC ABG pH ABG pH POC ABG pCO2 POC ABG pO2 ABG pO2 ABG HCO3 ABG Base Excess ABG Hemoglobin VBG pH Oxyhemoglobin Sodium Potassium Chloride Carbon Dioxide BUN Creatinine Glucose POC Glucose 243 H 163 H 200 H Lactic Acid Calcium AST ALT Alkaline Phosphatase CK-MB (CK-2) CK-MB (CK-2) Rel Index Total Protein Albumin TSH Urine WBC (Auto) Salicylates 02/05/17 02/05/17 02/05/17 05:38 12:38 16:29 WBC RBC Hgb Hct MCV MCH RDW Plt Count Lymph % (Auto) [place] % (Auto) Eos % (Auto) [place] # Seg Neutrophils % Seg Neuts % (Manual) Lymphocytes % (Manual) Seg Neutrophils # Seg Neutrophils # Man Lymphocytes # (Manual) APTT POC ABG pH ABG pH POC ABG pCO2 POC ABG pO2 ABG pO2 ABG HCO3 ABG Base Excess ABG Hemoglobin VBG pH Oxyhemoglobin Sodium Potassium Chloride Carbon Dioxide BUN Creatinine Glucose POC Glucose 248 H 241 H 257 H Lactic Acid Calcium AST ALT Alkaline Phosphatase CK-MB (CK-2) CK-MB (CK-2) Rel Index Total Protein Albumin TSH Urine WBC (Auto) Salicylates 02/05/17 02/06/17 02/06/17 23:56 05:30 11:50 WBC RBC Hgb Hct MCV MCH RDW Plt Count Lymph % (Auto) [place] % (Auto) Eos % (Auto) [place] # Seg Neutrophils % Seg Neuts % (Manual) Lymphocytes % (Manual) Seg Neutrophils # Seg Neutrophils # Man Lymphocytes # (Manual) APTT POC ABG pH ABG pH POC ABG pCO2 POC ABG pO2 ABG pO2 ABG HCO3 ABG Base Excess ABG Hemoglobin VBG pH Oxyhemoglobin Sodium Potassium Chloride Carbon Dioxide BUN Creatinine Glucose POC Glucose 258 H 120 H 254 H Lactic Acid Calcium AST ALT Alkaline Phosphatase CK-MB (CK-2) CK-MB (CK-2) Rel Index Total Protein Albumin TSH Urine WBC (Auto) Salicylates 02/06/17 02/06/17 02/07/17 17:11 23:50 05:22 WBC RBC Hgb Hct MCV MCH RDW Plt Count Lymph % (Auto) [place] % (Auto) Eos % (Auto) [place] # Seg Neutrophils % Seg Neuts % (Manual) Lymphocytes % (Manual) Seg Neutrophils # Seg Neutrophils # Man Lymphocytes # (Manual) APTT POC ABG pH ABG pH POC ABG pCO2 POC ABG pO2 ABG pO2 ABG HCO3 ABG Base Excess ABG Hemoglobin VBG pH Oxyhemoglobin Sodium Potassium Chloride Carbon Dioxide BUN Creatinine Glucose POC Glucose 149 H 240 H 258 H Lactic Acid Calcium AST ALT Alkaline Phosphatase CK-MB (CK-2) CK-MB (CK-2) Rel Index Total Protein Albumin TSH Urine WBC (Auto) Salicylates 02/07/17 02/07/17 02/07/17 11:15 18:33 23:59 WBC RBC Hgb Hct MCV MCH RDW Plt Count Lymph % (Auto) [place] % (Auto) Eos % (Auto) [place] # Seg Neutrophils % Seg Neuts % (Manual) Lymphocytes % (Manual) Seg Neutrophils # Seg Neutrophils # Man Lymphocytes # (Manual) APTT POC ABG pH ABG pH POC ABG pCO2 POC ABG pO2 ABG pO2 ABG HCO3 ABG Base Excess ABG Hemoglobin VBG pH Oxyhemoglobin Sodium Potassium Chloride Carbon Dioxide BUN Creatinine Glucose POC Glucose 239 H 176 H 186 H Lactic Acid Calcium AST ALT Alkaline Phosphatase CK-MB (CK-2) CK-MB (CK-2) Rel Index Total Protein Albumin TSH Urine WBC (Auto) Salicylates 02/08/17 02/08/17 02/08/17 06:15 11:55 16:55 WBC RBC Hgb Hct MCV MCH RDW Plt Count Lymph % (Auto) [place] % (Auto) Eos % (Auto) [place] # Seg Neutrophils % Seg Neuts % (Manual) Lymphocytes % (Manual) Seg Neutrophils # Seg Neutrophils # Man Lymphocytes # (Manual) APTT POC ABG pH ABG pH POC ABG pCO2 POC ABG pO2 ABG pO2 ABG HCO3 ABG Base Excess ABG Hemoglobin VBG pH Oxyhemoglobin Sodium Potassium Chloride Carbon Dioxide BUN Creatinine Glucose POC Glucose 195 H 129 H 246 H Lactic Acid Calcium AST ALT Alkaline Phosphatase CK-MB (CK-2) CK-MB (CK-2) Rel Index Total Protein Albumin TSH Urine WBC (Auto) Salicylates 02/08/17 02/09/17 02/09/17 23:51 05:51 07:24 WBC 14.7 H RBC 3.39 L Hgb 8.9 L Hct 26.4 L MCV 78 L MCH 26 L RDW 18.4 H Plt Count 670 H Lymph % (Auto) 11.8 L [place] % (Auto) Eos % (Auto) [place] # Seg Neutrophils % 81.2 H Seg Neuts % (Manual) Lymphocytes % (Manual) Seg Neutrophils # 11.9 H Seg Neutrophils # Man Lymphocytes # (Manual) APTT POC ABG pH ABG pH POC ABG pCO2 POC ABG pO2 ABG pO2 ABG HCO3 ABG Base Excess ABG Hemoglobin VBG pH Oxyhemoglobin Sodium Potassium Chloride Carbon Dioxide BUN Creatinine Glucose POC Glucose 262 H 295 H Lactic Acid Calcium AST ALT Alkaline Phosphatase CK-MB (CK-2) CK-MB (CK-2) Rel Index Total Protein Albumin TSH Urine WBC (Auto) Salicylates 02/09/17 02/09/17 02/09/17 07:24 12:08 18:39 WBC RBC Hgb Hct MCV MCH RDW Plt Count Lymph % (Auto) [place] % (Auto) Eos % (Auto) [place] # Seg Neutrophils % Seg Neuts % (Manual) Lymphocytes % (Manual) Seg Neutrophils # Seg Neutrophils # Man Lymphocytes # (Manual) APTT POC ABG pH ABG pH POC ABG pCO2 POC ABG pO2 ABG pO2 ABG HCO3 ABG Base Excess ABG Hemoglobin VBG pH Oxyhemoglobin Sodium Potassium Chloride 95.5 L Carbon Dioxide BUN 52 H Creatinine Glucose 277 H POC Glucose 236 H 151 H Lactic Acid Calcium AST ALT Alkaline Phosphatase CK-MB (CK-2) CK-MB (CK-2) Rel Index Total Protein Albumin TSH Urine WBC (Auto) Salicylates 02/10/17 02/10/17 02/10/17 00:01 05:44 11:21 WBC RBC Hgb Hct MCV MCH RDW Plt Count Lymph % (Auto) [place] % (Auto) Eos % (Auto) [place] # Seg Neutrophils % Seg Neuts % (Manual) Lymphocytes % (Manual) Seg Neutrophils # Seg Neutrophils # Man Lymphocytes # (Manual) APTT POC ABG pH ABG pH POC ABG pCO2 POC ABG pO2 ABG pO2 ABG HCO3 ABG Base Excess ABG Hemoglobin VBG pH Oxyhemoglobin Sodium Potassium Chloride Carbon Dioxide BUN Creatinine Glucose POC Glucose 210 H 201 H 233 H Lactic Acid Calcium AST ALT Alkaline Phosphatase CK-MB (CK-2) CK-MB (CK-2) Rel Index Total Protein Albumin TSH Urine WBC (Auto) Salicylates 02/10/17 02/10/17 02/11/17 17:29 23:56 05:24 WBC RBC Hgb Hct MCV MCH RDW Plt Count Lymph % (Auto) [place] % (Auto) Eos % (Auto) [place] # Seg Neutrophils % Seg Neuts % (Manual) Lymphocytes % (Manual) Seg Neutrophils # Seg Neutrophils # Man Lymphocytes # (Manual) APTT POC ABG pH ABG pH POC ABG pCO2 POC ABG pO2 ABG pO2 ABG HCO3 ABG Base Excess ABG Hemoglobin VBG pH Oxyhemoglobin Sodium Potassium Chloride Carbon Dioxide BUN Creatinine Glucose POC Glucose 167 H 191 H 135 H Lactic Acid Calcium AST ALT Alkaline Phosphatase CK-MB (CK-2) CK-MB (CK-2) Rel Index Total Protein Albumin TSH Urine WBC (Auto) Salicylates 02/11/17 02/11/17 02/11/17 12:25 17:03 23:59 WBC RBC Hgb Hct MCV MCH RDW Plt Count Lymph % (Auto) [place] % (Auto) Eos % (Auto) [place] # Seg Neutrophils % Seg Neuts % (Manual) Lymphocytes % (Manual) Seg Neutrophils # Seg Neutrophils # Man Lymphocytes # (Manual) APTT POC ABG pH ABG pH POC ABG pCO2 POC ABG pO2 ABG pO2 ABG HCO3 ABG Base Excess ABG Hemoglobin VBG pH Oxyhemoglobin Sodium Potassium Chloride Carbon Dioxide BUN Creatinine Glucose POC Glucose 275 H 172 H 215 H Lactic Acid Calcium AST ALT Alkaline Phosphatase CK-MB (CK-2) CK-MB (CK-2) Rel Index Total Protein Albumin TSH Urine WBC (Auto) Salicylates 02/12/17 02/12/17 02/12/17 05:39 11:33 17:55 WBC RBC Hgb Hct MCV MCH RDW Plt Count Lymph % (Auto) [place] % (Auto) Eos % (Auto) [place] # Seg Neutrophils % Seg Neuts % (Manual) Lymphocytes % (Manual) Seg Neutrophils # Seg Neutrophils # Man Lymphocytes # (Manual) APTT POC ABG pH ABG pH POC ABG pCO2 POC ABG pO2 ABG pO2 ABG HCO3 ABG Base Excess ABG Hemoglobin VBG pH Oxyhemoglobin Sodium Potassium Chloride Carbon Dioxide BUN Creatinine Glucose POC Glucose 261 H 217 H 172 H Lactic Acid Calcium AST ALT Alkaline Phosphatase CK-MB (CK-2) CK-MB (CK-2) Rel Index Total Protein Albumin TSH Urine WBC (Auto) Salicylates 02/13/17 02/13/17 02/13/17 00:25 06:46 11:26 WBC RBC Hgb Hct MCV MCH RDW Plt Count Lymph % (Auto) [place] % (Auto) Eos % (Auto) [place] # Seg Neutrophils % Seg Neuts % (Manual) Lymphocytes % (Manual) Seg Neutrophils # Seg Neutrophils # Man Lymphocytes # (Manual) APTT POC ABG pH ABG pH POC ABG pCO2 POC ABG pO2 ABG pO2 ABG HCO3 ABG Base Excess ABG Hemoglobin VBG pH Oxyhemoglobin Sodium Potassium Chloride Carbon Dioxide BUN Creatinine Glucose POC Glucose 207 H 219 H 231 H Lactic Acid Calcium AST ALT Alkaline Phosphatase CK-MB (CK-2) CK-MB (CK-2) Rel Index Total Protein Albumin TSH Urine WBC (Auto) Salicylates 02/13/17 02/13/17 02/14/17 17:12 23:44 05:44 WBC RBC Hgb Hct MCV MCH RDW Plt Count Lymph % (Auto) [place] % (Auto) Eos % (Auto) [place] # Seg Neutrophils % Seg Neuts % (Manual) Lymphocytes % (Manual) Seg Neutrophils # Seg Neutrophils # Man Lymphocytes # (Manual) APTT POC ABG pH ABG pH POC ABG pCO2 POC ABG pO2 ABG pO2 ABG HCO3 ABG Base Excess ABG Hemoglobin VBG pH Oxyhemoglobin Sodium Potassium Chloride Carbon Dioxide BUN Creatinine Glucose POC Glucose 190 H 256 H 184 H Lactic Acid Calcium AST ALT Alkaline Phosphatase CK-MB (CK-2) CK-MB (CK-2) Rel Index Total Protein Albumin TSH Urine WBC (Auto) Salicylates 02/14/17 02/14/17 02/14/17 12:21 17:57 23:18 WBC RBC Hgb Hct MCV MCH RDW Plt Count Lymph % (Auto) [place] % (Auto) Eos % (Auto) [place] # Seg Neutrophils % Seg Neuts % (Manual) Lymphocytes % (Manual) Seg Neutrophils # Seg Neutrophils # Man Lymphocytes # (Manual) APTT POC ABG pH ABG pH POC ABG pCO2 POC ABG pO2 ABG pO2 ABG HCO3 ABG Base Excess ABG Hemoglobin VBG pH Oxyhemoglobin Sodium Potassium Chloride Carbon Dioxide BUN Creatinine Glucose POC Glucose 233 H 155 H 165 H Lactic Acid Calcium AST ALT Alkaline Phosphatase CK-MB (CK-2) CK-MB (CK-2) Rel Index Total Protein Albumin TSH Urine WBC (Auto) Salicylates 02/15/17 02/15/17 02/15/17 05:33 11:45 17:20 WBC RBC Hgb Hct MCV MCH RDW Plt Count Lymph % (Auto) [place] % (Auto) Eos % (Auto) [place] # Seg Neutrophils % Seg Neuts % (Manual) Lymphocytes % (Manual) Seg Neutrophils # Seg Neutrophils # Man Lymphocytes # (Manual) APTT POC ABG pH ABG pH POC ABG pCO2 POC ABG pO2 ABG pO2 ABG HCO3 ABG Base Excess ABG Hemoglobin VBG pH Oxyhemoglobin Sodium Potassium Chloride Carbon Dioxide BUN Creatinine Glucose POC Glucose 239 H 130 H 189 H Lactic Acid Calcium AST ALT Alkaline Phosphatase CK-MB (CK-2) CK-MB (CK-2) Rel Index Total Protein Albumin TSH Urine WBC (Auto) Salicylates 02/16/17 02/16/17 02/16/17 00:14 05:09 12:31 WBC RBC Hgb Hct MCV MCH RDW Plt Count Lymph % (Auto) [place] % (Auto) Eos % (Auto) [place] # Seg Neutrophils % Seg Neuts % (Manual) Lymphocytes % (Manual) Seg Neutrophils # Seg Neutrophils # Man Lymphocytes # (Manual) APTT POC ABG pH ABG pH POC ABG pCO2 POC ABG pO2 ABG pO2 ABG HCO3 ABG Base Excess ABG Hemoglobin VBG pH Oxyhemoglobin Sodium Potassium Chloride Carbon Dioxide BUN Creatinine Glucose POC Glucose 197 H 226 H 178 H Lactic Acid Calcium AST ALT Alkaline Phosphatase CK-MB (CK-2) CK-MB (CK-2) Rel Index Total Protein Albumin TSH Urine WBC (Auto) Salicylates 02/16/17 02/16/17 02/17/17 16:35 23:49 05:37 WBC RBC Hgb Hct MCV MCH RDW Plt Count Lymph % (Auto) [place] % (Auto) Eos % (Auto) [place] # Seg Neutrophils % Seg Neuts % (Manual) Lymphocytes % (Manual) Seg Neutrophils # Seg Neutrophils # Man Lymphocytes # (Manual) APTT POC ABG pH ABG pH POC ABG pCO2 POC ABG pO2 ABG pO2 ABG HCO3 ABG Base Excess ABG Hemoglobin VBG pH Oxyhemoglobin Sodium Potassium Chloride Carbon Dioxide BUN Creatinine Glucose POC Glucose 174 H 62 L 153 H Lactic Acid Calcium AST ALT Alkaline Phosphatase CK-MB (CK-2) CK-MB (CK-2) Rel Index Total Protein Albumin TSH Urine WBC (Auto) Salicylates 02/17/17 02/17/17 02/17/17 11:39 17:02 22:24 WBC RBC Hgb Hct MCV MCH RDW Plt Count Lymph % (Auto) [place] % (Auto) Eos % (Auto) [place] # Seg Neutrophils % Seg Neuts % (Manual) Lymphocytes % (Manual) Seg Neutrophils # Seg Neutrophils # Man Lymphocytes # (Manual) APTT POC ABG pH ABG pH POC ABG pCO2 POC ABG pO2 ABG pO2 ABG HCO3 ABG Base Excess ABG Hemoglobin VBG pH Oxyhemoglobin Sodium Potassium Chloride Carbon Dioxide BUN Creatinine Glucose POC Glucose 231 H 112 H 116 H Lactic Acid Calcium AST ALT Alkaline Phosphatase CK-MB (CK-2) CK-MB (CK-2) Rel Index Total Protein Albumin TSH Urine WBC (Auto) Salicylates 02/18/17 02/19/17 02/19/17 15:34 05:09 07:57 WBC RBC Hgb Hct MCV MCH RDW Plt Count Lymph % (Auto) [place] % (Auto) Eos % (Auto) [place] # Seg Neutrophils % Seg Neuts % (Manual) Lymphocytes % (Manual) Seg Neutrophils # Seg Neutrophils # Man Lymphocytes # (Manual) APTT POC ABG pH ABG pH POC ABG pCO2 POC ABG pO2 ABG pO2 ABG HCO3 ABG Base Excess ABG Hemoglobin VBG pH Oxyhemoglobin Sodium Potassium Chloride Carbon Dioxide BUN Creatinine Glucose POC Glucose 215 H 218 H 283 H Lactic Acid Calcium AST ALT Alkaline Phosphatase CK-MB (CK-2) CK-MB (CK-2) Rel Index Total Protein Albumin TSH Urine WBC (Auto) Salicylates 02/19/17 02/19/17 02/20/17 14:49 22:10 05:10 WBC RBC Hgb Hct MCV MCH RDW Plt Count Lymph % (Auto) [place] % (Auto) Eos % (Auto) [place] # Seg Neutrophils % Seg Neuts % (Manual) Lymphocytes % (Manual) Seg Neutrophils # Seg Neutrophils # Man Lymphocytes # (Manual) APTT POC ABG pH ABG pH POC ABG pCO2 POC ABG pO2 ABG pO2 ABG HCO3 ABG Base Excess ABG Hemoglobin VBG pH Oxyhemoglobin Sodium Potassium Chloride Carbon Dioxide BUN Creatinine Glucose POC Glucose 290 H 169 H 209 H Lactic Acid Calcium AST ALT Alkaline Phosphatase CK-MB (CK-2) CK-MB (CK-2) Rel Index Total Protein Albumin TSH Urine WBC (Auto) Salicylates 02/20/17 02/20/17 02/21/17 15:05 21:52 02:00 WBC RBC Hgb Hct MCV MCH RDW Plt Count Lymph % (Auto) [place] % (Auto) Eos % (Auto) [place] # Seg Neutrophils % Seg Neuts % (Manual) Lymphocytes % (Manual) Seg Neutrophils # Seg Neutrophils # Man Lymphocytes # (Manual) APTT POC ABG pH ABG pH POC ABG pCO2 POC ABG pO2 ABG pO2 ABG HCO3 ABG Base Excess ABG Hemoglobin VBG pH Oxyhemoglobin Sodium Potassium Chloride Carbon Dioxide BUN Creatinine Glucose POC Glucose 172 H 209 H 216 H Lactic Acid Calcium AST ALT Alkaline Phosphatase CK-MB (CK-2) CK-MB (CK-2) Rel Index Total Protein Albumin TSH Urine WBC (Auto) Salicylates 02/21/17 02/21/17 02/21/17 04:54 14:43 17:47 WBC RBC Hgb Hct MCV MCH RDW Plt Count Lymph % (Auto) [place] % (Auto) Eos % (Auto) [place] # Seg Neutrophils % Seg Neuts % (Manual) Lymphocytes % (Manual) Seg Neutrophils # Seg Neutrophils # Man Lymphocytes # (Manual) APTT POC ABG pH ABG pH POC ABG pCO2 POC ABG pO2 ABG pO2 ABG HCO3 ABG Base Excess ABG Hemoglobin VBG pH Oxyhemoglobin Sodium Potassium Chloride Carbon Dioxide BUN Creatinine Glucose POC Glucose 227 H 290 H 220 H Lactic Acid Calcium AST ALT Alkaline Phosphatase CK-MB (CK-2) CK-MB (CK-2) Rel Index Total Protein Albumin TSH Urine WBC (Auto) Salicylates 02/21/17 02/22/17 02/22/17 22:02 04:52 15:25 WBC RBC Hgb Hct MCV MCH RDW Plt Count Lymph % (Auto) [place] % (Auto) Eos % (Auto) [place] # Seg Neutrophils % Seg Neuts % (Manual) Lymphocytes % (Manual) Seg Neutrophils # Seg Neutrophils # Man Lymphocytes # (Manual) APTT POC ABG pH ABG pH POC ABG pCO2 POC ABG pO2 ABG pO2 ABG HCO3 ABG Base Excess ABG Hemoglobin VBG pH Oxyhemoglobin Sodium Potassium Chloride Carbon Dioxide BUN Creatinine Glucose POC Glucose 246 H 212 H 236 H Lactic Acid Calcium AST ALT Alkaline Phosphatase CK-MB (CK-2) CK-MB (CK-2) Rel Index Total Protein Albumin TSH Urine WBC (Auto) Salicylates 02/22/17 02/23/17 02/23/17 21:33 06:04 10:00 WBC RBC Hgb Hct MCV MCH RDW Plt Count Lymph % (Auto) [place] % (Auto) Eos % (Auto) [place] # Seg Neutrophils % Seg Neuts % (Manual) Lymphocytes % (Manual) Seg Neutrophils # Seg Neutrophils # Man Lymphocytes # (Manual) APTT POC ABG pH ABG pH POC ABG pCO2 POC ABG pO2 ABG pO2 ABG HCO3 ABG Base Excess ABG Hemoglobin VBG pH Oxyhemoglobin Sodium Potassium Chloride Carbon Dioxide BUN Creatinine Glucose POC Glucose 255 H 208 H 174 H Lactic Acid Calcium AST ALT Alkaline Phosphatase CK-MB (CK-2) CK-MB (CK-2) Rel Index Total Protein Albumin TSH Urine WBC (Auto) Salicylates 02/23/17 02/23/17 02/23/17 12:52 17:15 21:51 WBC RBC Hgb Hct MCV MCH RDW Plt Count Lymph % (Auto) [place] % (Auto) Eos % (Auto) [place] # Seg Neutrophils % Seg Neuts % (Manual) Lymphocytes % (Manual) Seg Neutrophils # Seg Neutrophils # Man Lymphocytes # (Manual) APTT POC ABG pH ABG pH POC ABG pCO2 POC ABG pO2 ABG pO2 ABG HCO3 ABG Base Excess ABG Hemoglobin VBG pH Oxyhemoglobin Sodium Potassium Chloride Carbon Dioxide BUN Creatinine Glucose POC Glucose 203 H 269 H 205 H Lactic Acid Calcium AST ALT Alkaline Phosphatase CK-MB (CK-2) CK-MB (CK-2) Rel Index Total Protein Albumin TSH Urine WBC (Auto) Salicylates 02/24/17 02/24/17 02/24/17 10:23 17:45 21:24 WBC RBC Hgb Hct MCV MCH RDW Plt Count Lymph % (Auto) [place] % (Auto) Eos % (Auto) [place] # Seg Neutrophils % Seg Neuts % (Manual) Lymphocytes % (Manual) Seg Neutrophils # Seg Neutrophils # Man Lymphocytes # (Manual) APTT POC ABG pH ABG pH POC ABG pCO2 POC ABG pO2 ABG pO2 ABG HCO3 ABG Base Excess ABG Hemoglobin VBG pH Oxyhemoglobin Sodium Potassium Chloride Carbon Dioxide BUN Creatinine Glucose POC Glucose 280 H 239 H 254 H Lactic Acid Calcium AST ALT Alkaline Phosphatase CK-MB (CK-2) CK-MB (CK-2) Rel Index Total Protein Albumin TSH Urine WBC (Auto) Salicylates 02/25/17 02/25/1717 02:12 05:17 14:32 WBC RBC Hgb Hct MCV MCH RDW Plt Count Lymph % (Auto) [place] % (Auto) Eos % (Auto) [place] # Seg Neutrophils % Seg Neuts % (Manual) Lymphocytes % (Manual) Seg Neutrophils # Seg Neutrophils # Man Lymphocytes # (Manual) APTT POC ABG pH ABG pH POC ABG pCO2 POC ABG pO2 ABG pO2 ABG HCO3 ABG Base Excess ABG Hemoglobin VBG pH Oxyhemoglobin Sodium Potassium Chloride Carbon Dioxide BUN Creatinine Glucose POC Glucose 296 H 332 H 353 H Lactic Acid Calcium AST ALT Alkaline Phosphatase CK-MB (CK-2) CK-MB (CK-2) Rel Index Total Protein Albumin TSH Urine WBC (Auto) Salicylates 02/25/17 02/26/17 02/26/17 22:14 00:37 05:52 WBC RBC Hgb Hct MCV MCH RDW Plt Count Lymph % (Auto) [place] % (Auto) Eos % (Auto) [place] # Seg Neutrophils % Seg Neuts % (Manual) Lymphocytes % (Manual) Seg Neutrophils # Seg Neutrophils # Man Lymphocytes # (Manual) APTT POC ABG pH ABG pH POC ABG pCO2 POC ABG pO2 ABG pO2 ABG HCO3 ABG Base Excess ABG Hemoglobin VBG pH Oxyhemoglobin Sodium Potassium Chloride Carbon Dioxide BUN Creatinine Glucose POC Glucose 201 H 233 H 269 H Lactic Acid Calcium AST ALT Alkaline Phosphatase CK-MB (CK-2) CK-MB (CK-2) Rel Index Total Protein Albumin TSH Urine WBC (Auto) Salicylates 02/26/17 02/26/17 02/26/17 11:48 13:49 21:26 WBC RBC Hgb Hct MCV MCH RDW Plt Count Lymph % (Auto) [place] % (Auto) Eos % (Auto) [place] # Seg Neutrophils % Seg Neuts % (Manual) Lymphocytes % (Manual) Seg Neutrophils # Seg Neutrophils # Man Lymphocytes # (Manual) APTT POC ABG pH ABG pH POC ABG pCO2 POC ABG pO2 ABG pO2 ABG HCO3 ABG Base Excess ABG Hemoglobin VBG pH Oxyhemoglobin Sodium Potassium Chloride Carbon Dioxide BUN Creatinine Glucose POC Glucose 333 H 322 H 244 H Lactic Acid Calcium AST ALT Alkaline Phosphatase CK-MB (CK-2) CK-MB (CK-2) Rel Index Total Protein Albumin TSH Urine WBC (Auto) Salicylates 02/27/17 02/27/17 02/27/17 05:27 13:51 21:48 WBC RBC Hgb Hct MCV MCH RDW Plt Count Lymph % (Auto) [place] % (Auto) Eos % (Auto) [place] # Seg Neutrophils % Seg Neuts % (Manual) Lymphocytes % (Manual) Seg Neutrophils # Seg Neutrophils # Man Lymphocytes # (Manual) APTT POC ABG pH ABG pH POC ABG pCO2 POC ABG pO2 ABG pO2 ABG HCO3 ABG Base Excess ABG Hemoglobin VBG pH Oxyhemoglobin Sodium Potassium Chloride Carbon Dioxide BUN Creatinine Glucose POC Glucose 217 H 239 H 254 H Lactic Acid Calcium AST ALT Alkaline Phosphatase CK-MB (CK-2) CK-MB (CK-2) Rel Index Total Protein Albumin TSH Urine WBC (Auto) Salicylates 02/28/17 02/28/17 02/28/17 05:38 11:00 19:44 WBC RBC Hgb Hct MCV MCH RDW Plt Count Lymph % (Auto) [place] % (Auto) Eos % (Auto) [place] # Seg Neutrophils % Seg Neuts % (Manual) Lymphocytes % (Manual) Seg Neutrophils # Seg Neutrophils # Man Lymphocytes # (Manual) APTT POC ABG pH ABG pH POC ABG pCO2 POC ABG pO2 ABG pO2 ABG HCO3 ABG Base Excess ABG Hemoglobin VBG pH Oxyhemoglobin Sodium Potassium Chloride Carbon Dioxide BUN Creatinine Glucose POC Glucose 325 H 203 H 116 H Lactic Acid Calcium AST ALT Alkaline Phosphatase CK-MB (CK-2) CK-MB (CK-2) Rel Index Total Protein Albumin TSH Urine WBC (Auto) Salicylates 03/01/17 03/01/17 03/01/17 00:08 05:31 12:17 WBC RBC Hgb Hct MCV MCH RDW Plt Count Lymph % (Auto) [place] % (Auto) Eos % (Auto) [place] # Seg Neutrophils % Seg Neuts % (Manual) Lymphocytes % (Manual) Seg Neutrophils # Seg Neutrophils # Man Lymphocytes # (Manual) APTT POC ABG pH ABG pH POC ABG pCO2 POC ABG pO2 ABG pO2 ABG HCO3 ABG Base Excess ABG Hemoglobin VBG pH Oxyhemoglobin Sodium Potassium Chloride Carbon Dioxide BUN Creatinine Glucose POC Glucose 202 H 183 H 184 H Lactic Acid Calcium AST ALT Alkaline Phosphatase CK-MB (CK-2) CK-MB (CK-2) Rel Index Total Protein Albumin TSH Urine WBC (Auto) Salicylates 03/02/17 03/02/17 03/02/17 00:12 05:58 18:22 WBC RBC Hgb Hct MCV MCH RDW Plt Count Lymph % (Auto) [place] % (Auto) Eos % (Auto) [place] # Seg Neutrophils % Seg Neuts % (Manual) Lymphocytes % (Manual) Seg Neutrophils # Seg Neutrophils # Man Lymphocytes # (Manual) APTT POC ABG pH ABG pH POC ABG pCO2 POC ABG pO2 ABG pO2 ABG HCO3 ABG Base Excess ABG Hemoglobin VBG pH Oxyhemoglobin Sodium Potassium Chloride Carbon Dioxide BUN Creatinine Glucose POC Glucose 117 H 176 H 156 H Lactic Acid Calcium AST ALT Alkaline Phosphatase CK-MB (CK-2) CK-MB (CK-2) Rel Index Total Protein Albumin TSH Urine WBC (Auto) Salicylates 03/02/17 03/03/17 03/03/17 23:51 05:44 11:32 WBC RBC Hgb Hct MCV MCH RDW Plt Count Lymph % (Auto) [place] % (Auto) Eos % (Auto) [place] # Seg Neutrophils % Seg Neuts % (Manual) Lymphocytes % (Manual) Seg Neutrophils # Seg Neutrophils # Man Lymphocytes # (Manual) APTT POC ABG pH ABG pH POC ABG pCO2 POC ABG pO2 ABG pO2 ABG HCO3 ABG Base Excess ABG Hemoglobin VBG pH Oxyhemoglobin Sodium Potassium Chloride Carbon Dioxide BUN Creatinine Glucose POC Glucose 211 H 117 H 133 H Lactic Acid Calcium AST ALT Alkaline Phosphatase CK-MB (CK-2) CK-MB (CK-2) Rel Index Total Protein Albumin TSH Urine WBC (Auto) Salicylates 03/03/17 03/03/17 03/04/17 17:43 23:17 05:30 WBC RBC Hgb Hct MCV MCH RDW Plt Count Lymph % (Auto) [place] % (Auto) Eos % (Auto) [place] # Seg Neutrophils % Seg Neuts % (Manual) Lymphocytes % (Manual) Seg Neutrophils # Seg Neutrophils # Man Lymphocytes # (Manual) APTT POC ABG pH ABG pH POC ABG pCO2 POC ABG pO2 ABG pO2 ABG HCO3 ABG Base Excess ABG Hemoglobin VBG pH Oxyhemoglobin Sodium Potassium Chloride Carbon Dioxide BUN Creatinine Glucose POC Glucose 206 H 170 H 126 H Lactic Acid Calcium AST ALT Alkaline Phosphatase CK-MB (CK-2) CK-MB (CK-2) Rel Index Total Protein Albumin TSH Urine WBC (Auto) Salicylates 03/04/17 03/04/17 03/05/17 12:17 17:27 05:20 WBC RBC Hgb Hct MCV MCH RDW Plt Count Lymph % (Auto) [place] % (Auto) Eos % (Auto) [place] # Seg Neutrophils % Seg Neuts % (Manual) Lymphocytes % (Manual) Seg Neutrophils # Seg Neutrophils # Man Lymphocytes # (Manual) APTT POC ABG pH ABG pH POC ABG pCO2 POC ABG pO2 ABG pO2 ABG HCO3 ABG Base Excess ABG Hemoglobin VBG pH Oxyhemoglobin Sodium Potassium Chloride Carbon Dioxide BUN Creatinine Glucose POC Glucose 135 H 121 H 185 H Lactic Acid Calcium AST ALT Alkaline Phosphatase CK-MB (CK-2) CK-MB (CK-2) Rel Index Total Protein Albumin TSH Urine WBC (Auto) Salicylates 03/05/17 03/06/17 03/06/17 11:50 11:52 17:34 WBC RBC Hgb Hct MCV MCH RDW Plt Count Lymph % (Auto) [place] % (Auto) Eos % (Auto) [place] # Seg Neutrophils % Seg Neuts % (Manual) Lymphocytes % (Manual) Seg Neutrophils # Seg Neutrophils # Man Lymphocytes # (Manual) APTT POC ABG pH ABG pH POC ABG pCO2 POC ABG pO2 ABG pO2 ABG HCO3 ABG Base Excess ABG Hemoglobin VBG pH Oxyhemoglobin Sodium Potassium Chloride Carbon Dioxide BUN Creatinine Glucose POC Glucose 116 H 133 H 181 H Lactic Acid Calcium AST ALT Alkaline Phosphatase CK-MB (CK-2) CK-MB (CK-2) Rel Index Total Protein Albumin TSH Urine WBC (Auto) Salicylates 03/07/17 03/07/17 03/07/17 05:21 11:36 17:49 WBC RBC Hgb Hct MCV MCH RDW Plt Count Lymph % (Auto) [place] % (Auto) Eos % (Auto) [place] # Seg Neutrophils % Seg Neuts % (Manual) Lymphocytes % (Manual) Seg Neutrophils # Seg Neutrophils # Man Lymphocytes # (Manual) APTT POC ABG pH ABG pH POC ABG pCO2 POC ABG pO2 ABG pO2 ABG HCO3 ABG Base Excess ABG Hemoglobin VBG pH Oxyhemoglobin Sodium Potassium Chloride Carbon Dioxide BUN Creatinine Glucose POC Glucose 159 H 137 H 158 H Lactic Acid Calcium AST ALT Alkaline Phosphatase CK-MB (CK-2) CK-MB (CK-2) Rel Index Total Protein Albumin TSH Urine WBC (Auto) Salicylates 03/08/17 03/08/17 03/08/17 05:51 13:58 23:50 WBC RBC Hgb Hct MCV MCH RDW Plt Count Lymph % (Auto) [place] % (Auto) Eos % (Auto) [place] # Seg Neutrophils % Seg Neuts % (Manual) Lymphocytes % (Manual) Seg Neutrophils # Seg Neutrophils # Man Lymphocytes # (Manual) APTT POC ABG pH ABG pH POC ABG pCO2 POC ABG pO2 ABG pO2 ABG HCO3 ABG Base Excess ABG Hemoglobin VBG pH Oxyhemoglobin Sodium Potassium Chloride Carbon Dioxide BUN Creatinine Glucose POC Glucose 122 H 182 H 114 H Lactic Acid Calcium AST ALT Alkaline Phosphatase CK-MB (CK-2) CK-MB (CK-2) Rel Index Total Protein Albumin TSH Urine WBC (Auto) Salicylates 03/09/17 03/09/17 03/09/17 05:21 05:51 05:51 WBC RBC 3.61 L Hgb 9.5 L Hct 28.3 L MCV 79 L MCH 26 L RDW 17.8 H Plt Count Lymph % (Auto) [place] % (Auto) Eos % (Auto) [place] # Seg Neutrophils % Seg Neuts % (Manual) Lymphocytes % (Manual) Seg Neutrophils # Seg Neutrophils # Man Lymphocytes # (Manual) APTT POC ABG pH ABG pH POC ABG pCO2 POC ABG pO2 ABG pO2 ABG HCO3 ABG Base Excess ABG Hemoglobin VBG pH Oxyhemoglobin Sodium 134 L Potassium Chloride 95.5 L Carbon Dioxide BUN 33 H Creatinine 0.5 L Glucose 143 H POC Glucose 153 H Lactic Acid Calcium AST ALT Alkaline Phosphatase CK-MB (CK-2) CK-MB (CK-2) Rel Index Total Protein Albumin TSH Urine WBC (Auto) Salicylates 03/09/17 03/09/17 03/09/17 12:10 18:13 21:00 WBC RBC Hgb Hct MCV MCH RDW Plt Count Lymph % (Auto) [place] % (Auto) Eos % (Auto) [place] # Seg Neutrophils % Seg Neuts % (Manual) Lymphocytes % (Manual) Seg Neutrophils # Seg Neutrophils # Man Lymphocytes # (Manual) APTT POC ABG pH ABG pH POC ABG pCO2 POC ABG pO2 ABG pO2 ABG HCO3 ABG Base Excess ABG Hemoglobin VBG pH Oxyhemoglobin Sodium Potassium Chloride Carbon Dioxide BUN Creatinine Glucose POC Glucose 203 H 221 H 198 H Lactic Acid Calcium AST ALT Alkaline Phosphatase CK-MB (CK-2) CK-MB (CK-2) Rel Index Total Protein Albumin TSH Urine WBC (Auto) Salicylates 03/09/17 03/10/17 03/10/17 23:58 05:09 05:09 WBC RBC Hgb 10.3 L Hct 30.5 L MCV 78 L MCH 26 L RDW 17.9 H Plt Count Lymph % (Auto) [place] % (Auto) 10.0 H Eos % (Auto) 6.0 H [place] # Seg Neutrophils % Seg Neuts % (Manual) Lymphocytes % (Manual) Seg Neutrophils # Seg Neutrophils # Man Lymphocytes # (Manual) APTT POC ABG pH ABG pH POC ABG pCO2 POC ABG pO2 ABG pO2 ABG HCO3 ABG Base Excess ABG Hemoglobin VBG pH Oxyhemoglobin Sodium 132 L Potassium Chloride 92.2 L Carbon Dioxide BUN 33 H Creatinine 0.5 L Glucose 50 L POC Glucose 167 H Lactic Acid Calcium AST ALT Alkaline Phosphatase CK-MB (CK-2) CK-MB (CK-2) Rel Index Total Protein Albumin TSH Urine WBC (Auto) Salicylates 03/10/17 03/10/17 03/10/17 05:33 05:34 11:48 WBC RBC Hgb Hct MCV MCH RDW Plt Count Lymph % (Auto) [place] % (Auto) Eos % (Auto) [place] # Seg Neutrophils % Seg Neuts % (Manual) Lymphocytes % (Manual) Seg Neutrophils # Seg Neutrophils # Man Lymphocytes # (Manual) APTT POC ABG pH ABG pH POC ABG pCO2 POC ABG pO2 ABG pO2 ABG HCO3 ABG Base Excess ABG Hemoglobin VBG pH Oxyhemoglobin Sodium Potassium Chloride Carbon Dioxide BUN Creatinine Glucose POC Glucose 52 L 53 L 148 H Lactic Acid Calcium AST ALT Alkaline Phosphatase CK-MB (CK-2) CK-MB (CK-2) Rel Index Total Protein Albumin TSH Urine WBC (Auto) Salicylates 03/10/17 03/10/17 03/11/17 17:53 23:47 05:18 WBC RBC Hgb Hct MCV MCH RDW Plt Count Lymph % (Auto) [place] % (Auto) Eos % (Auto) [place] # Seg Neutrophils % Seg Neuts % (Manual) Lymphocytes % (Manual) Seg Neutrophils # Seg Neutrophils # Man Lymphocytes # (Manual) APTT POC ABG pH ABG pH POC ABG pCO2 POC ABG pO2 ABG pO2 ABG HCO3 ABG Base Excess ABG Hemoglobin VBG pH Oxyhemoglobin Sodium Potassium Chloride Carbon Dioxide BUN Creatinine Glucose POC Glucose 189 H 398 H 126 H Lactic Acid Calcium AST ALT Alkaline Phosphatase CK-MB (CK-2) CK-MB (CK-2) Rel Index Total Protein Albumin TSH Urine WBC (Auto) Salicylates 03/11/17 03/11/17 03/11/17 11:53 17:30 23:10 WBC RBC Hgb Hct MCV MCH RDW Plt Count Lymph % (Auto) [place] % (Auto) Eos % (Auto) [place] # Seg Neutrophils % Seg Neuts % (Manual) Lymphocytes % (Manual) Seg Neutrophils # Seg Neutrophils # Man Lymphocytes # (Manual) APTT POC ABG pH ABG pH POC ABG pCO2 POC ABG pO2 ABG pO2 ABG HCO3 ABG Base Excess ABG Hemoglobin VBG pH Oxyhemoglobin Sodium Potassium Chloride Carbon Dioxide BUN Creatinine Glucose POC Glucose 198 H 142 H 244 H Lactic Acid Calcium AST ALT Alkaline Phosphatase CK-MB (CK-2) CK-MB (CK-2) Rel Index Total Protein Albumin TSH Urine WBC (Auto) Salicylates 03/12/17 03/12/17 03/12/17 04:36 11:49 17:23 WBC RBC Hgb Hct MCV MCH RDW Plt Count Lymph % (Auto) [place] % (Auto) Eos % (Auto) [place] # Seg Neutrophils % Seg Neuts % (Manual) Lymphocytes % (Manual) Seg Neutrophils # Seg Neutrophils # Man Lymphocytes # (Manual) APTT POC ABG pH ABG pH POC ABG pCO2 POC ABG pO2 ABG pO2 ABG HCO3 ABG Base Excess ABG Hemoglobin VBG pH Oxyhemoglobin Sodium Potassium Chloride Carbon Dioxide BUN Creatinine Glucose POC Glucose 205 H 197 H 209 H Lactic Acid Calcium AST ALT Alkaline Phosphatase CK-MB (CK-2) CK-MB (CK-2) Rel Index Total Protein Albumin TSH Urine WBC (Auto) Salicylates 03/12/17 03/13/17 03/13/17 23:51 05:32 11:43 WBC RBC Hgb Hct MCV MCH RDW Plt Count Lymph % (Auto) [place] % (Auto) Eos % (Auto) [place] # Seg Neutrophils % Seg Neuts % (Manual) Lymphocytes % (Manual) Seg Neutrophils # Seg Neutrophils # Man Lymphocytes # (Manual) APTT POC ABG pH ABG pH POC ABG pCO2 POC ABG pO2 ABG pO2 ABG HCO3 ABG Base Excess ABG Hemoglobin VBG pH Oxyhemoglobin Sodium Potassium Chloride Carbon Dioxide BUN Creatinine Glucose POC Glucose 210 H 154 H 164 H Lactic Acid Calcium AST ALT Alkaline Phosphatase CK-MB (CK-2) CK-MB (CK-2) Rel Index Total Protein Albumin TSH Urine WBC (Auto) Salicylates 03/13/17 03/13/17 03/14/17 17:11 23:26 05:42 WBC RBC Hgb Hct MCV MCH RDW Plt Count Lymph % (Auto) [place] % (Auto) Eos % (Auto) [place] # Seg Neutrophils % Seg Neuts % (Manual) Lymphocytes % (Manual) Seg Neutrophils # Seg Neutrophils # Man Lymphocytes # (Manual) APTT POC ABG pH ABG pH POC ABG pCO2 POC ABG pO2 ABG pO2 ABG HCO3 ABG Base Excess ABG Hemoglobin VBG pH Oxyhemoglobin Sodium Potassium Chloride Carbon Dioxide BUN Creatinine Glucose POC Glucose 195 H 240 H 230 H Lactic Acid Calcium AST ALT Alkaline Phosphatase CK-MB (CK-2) CK-MB (CK-2) Rel Index Total Protein Albumin TSH Urine WBC (Auto) Salicylates 03/14/17 03/14/17 03/14/17 14:04 17:34 23:42 WBC RBC Hgb Hct MCV MCH RDW Plt Count Lymph % (Auto) [place] % (Auto) Eos % (Auto) [place] # Seg Neutrophils % Seg Neuts % (Manual) Lymphocytes % (Manual) Seg Neutrophils # Seg Neutrophils # Man Lymphocytes # (Manual) APTT POC ABG pH ABG pH POC ABG pCO2 POC ABG pO2 ABG pO2 ABG HCO3 ABG Base Excess ABG Hemoglobin VBG pH Oxyhemoglobin Sodium Potassium Chloride Carbon Dioxide BUN Creatinine Glucose POC Glucose 227 H 186 H 225 H Lactic Acid Calcium AST ALT Alkaline Phosphatase CK-MB (CK-2) CK-MB (CK-2) Rel Index Total Protein Albumin TSH Urine WBC (Auto) Salicylates 03/15/17 03/15/17 03/15/17 05:21 17:13 21:37 WBC RBC Hgb Hct MCV MCH RDW Plt Count Lymph % (Auto) [place] % (Auto) Eos % (Auto) [place] # Seg Neutrophils % Seg Neuts % (Manual) Lymphocytes % (Manual) Seg Neutrophils # Seg Neutrophils # Man Lymphocytes # (Manual) APTT POC ABG pH ABG pH POC ABG pCO2 POC ABG pO2 ABG pO2 ABG HCO3 ABG Base Excess ABG Hemoglobin VBG pH Oxyhemoglobin Sodium Potassium Chloride Carbon Dioxide BUN Creatinine Glucose POC Glucose 244 H 203 H 216 H Lactic Acid Calcium AST ALT Alkaline Phosphatase CK-MB (CK-2) CK-MB (CK-2) Rel Index Total Protein Albumin TSH Urine WBC (Auto) Salicylates 03/16/17 03/16/17 03/16/17 05:52 18:07 21:54 WBC RBC Hgb Hct MCV MCH RDW Plt Count Lymph % (Auto) [place] % (Auto) Eos % (Auto) [place] # Seg Neutrophils % Seg Neuts % (Manual) Lymphocytes % (Manual) Seg Neutrophils # Seg Neutrophils # Man Lymphocytes # (Manual) APTT POC ABG pH ABG pH POC ABG pCO2 POC ABG pO2 ABG pO2 ABG HCO3 ABG Base Excess ABG Hemoglobin VBG pH Oxyhemoglobin Sodium Potassium Chloride Carbon Dioxide BUN Creatinine Glucose POC Glucose 248 H 254 H 244 H Lactic Acid Calcium AST ALT Alkaline Phosphatase CK-MB (CK-2) CK-MB (CK-2) Rel Index Total Protein Albumin TSH Urine WBC (Auto) Salicylates 03/17/17 03/17/17 03/17/17 07:07 07:42 07:43 WBC RBC Hgb 9.7 L Hct 29.1 L MCV 78 L MCH 26 L RDW 17.4 H Plt Count Lymph % (Auto) [place] % (Auto) Eos % (Auto) [place] # Seg Neutrophils % Seg Neuts % (Manual) Lymphocytes % (Manual) Seg Neutrophils # Seg Neutrophils # Man Lymphocytes # (Manual) APTT POC ABG pH ABG pH POC ABG pCO2 POC ABG pO2 ABG pO2 ABG HCO3 ABG Base Excess ABG Hemoglobin VBG pH Oxyhemoglobin Sodium Potassium Chloride 96.6 L Carbon Dioxide BUN 30 H Creatinine 0.5 L Glucose 251 H POC Glucose 222 H Lactic Acid Calcium AST ALT Alkaline Phosphatase CK-MB (CK-2) CK-MB (CK-2) Rel Index Total Protein Albumin TSH Urine WBC (Auto) Salicylates 03/17/17 03/17/17 03/18/17 14:08 21:20 14:24 WBC RBC Hgb Hct MCV MCH RDW Plt Count Lymph % (Auto) [place] % (Auto) Eos % (Auto) [place] # Seg Neutrophils % Seg Neuts % (Manual) Lymphocytes % (Manual) Seg Neutrophils # Seg Neutrophils # Man Lymphocytes # (Manual) APTT POC ABG pH ABG pH POC ABG pCO2 POC ABG pO2 ABG pO2 ABG HCO3 ABG Base Excess ABG Hemoglobin VBG pH Oxyhemoglobin Sodium Potassium Chloride Carbon Dioxide BUN Creatinine Glucose POC Glucose 281 H 239 H 195 H Lactic Acid Calcium AST ALT Alkaline Phosphatase CK-MB (CK-2) CK-MB (CK-2) Rel Index Total Protein Albumin TSH Urine WBC (Auto) Salicylates 03/18/17 03/19/17 03/19/17 21:37 04:57 14:23 WBC RBC Hgb Hct MCV MCH RDW Plt Count Lymph % (Auto) [place] % (Auto) Eos % (Auto) [place] # Seg Neutrophils % Seg Neuts % (Manual) Lymphocytes % (Manual) Seg Neutrophils # Seg Neutrophils # Man Lymphocytes # (Manual) APTT POC ABG pH ABG pH POC ABG pCO2 POC ABG pO2 ABG pO2 ABG HCO3 ABG Base Excess ABG Hemoglobin VBG pH Oxyhemoglobin Sodium Potassium Chloride Carbon Dioxide BUN Creatinine Glucose POC Glucose 227 H 205 H 277 H Lactic Acid Calcium AST ALT Alkaline Phosphatase CK-MB (CK-2) CK-MB (CK-2) Rel Index Total Protein Albumin TSH Urine WBC (Auto) Salicylates 03/19/17 03/19/17 03/20/17 20:31 21:47 04:55 WBC RBC Hgb Hct MCV MCH RDW Plt Count Lymph % (Auto) [place] % (Auto) Eos % (Auto) [place] # Seg Neutrophils % Seg Neuts % (Manual) Lymphocytes % (Manual) Seg Neutrophils # Seg Neutrophils # Man Lymphocytes # (Manual) APTT POC ABG pH ABG pH POC ABG pCO2 POC ABG pO2 ABG pO2 ABG HCO3 ABG Base Excess ABG Hemoglobin VBG pH Oxyhemoglobin Sodium Potassium Chloride Carbon Dioxide BUN Creatinine Glucose POC Glucose 256 H 270 H 202 H Lactic Acid Calcium AST ALT Alkaline Phosphatase CK-MB (CK-2) CK-MB (CK-2) Rel Index Total Protein Albumin TSH Urine WBC (Auto) Salicylates 03/20/17 03/20/17 03/21/17 14:09 21:40 05:09 WBC RBC Hgb Hct MCV MCH RDW Plt Count Lymph % (Auto) [place] % (Auto) Eos % (Auto) [place] # Seg Neutrophils % Seg Neuts % (Manual) Lymphocytes % (Manual) Seg Neutrophils # Seg Neutrophils # Man Lymphocytes # (Manual) APTT POC ABG pH ABG pH POC ABG pCO2 POC ABG pO2 ABG pO2 ABG HCO3 ABG Base Excess ABG Hemoglobin VBG pH Oxyhemoglobin Sodium Potassium Chloride Carbon Dioxide BUN Creatinine Glucose POC Glucose 200 H 214 H 233 H Lactic Acid Calcium AST ALT Alkaline Phosphatase CK-MB (CK-2) CK-MB (CK-2) Rel Index Total Protein Albumin TSH Urine WBC (Auto) Salicylates 03/21/17 03/21/17 03/22/17 14:06 21:26 05:43 WBC RBC Hgb Hct MCV MCH RDW Plt Count Lymph % (Auto) [place] % (Auto) Eos % (Auto) [place] # Seg Neutrophils % Seg Neuts % (Manual) Lymphocytes % (Manual) Seg Neutrophils # Seg Neutrophils # Man Lymphocytes # (Manual) APTT POC ABG pH ABG pH POC ABG pCO2 POC ABG pO2 ABG pO2 ABG HCO3 ABG Base Excess ABG Hemoglobin VBG pH Oxyhemoglobin Sodium Potassium Chloride Carbon Dioxide BUN Creatinine Glucose POC Glucose 250 H 155 H 251 H Lactic Acid Calcium AST ALT Alkaline Phosphatase CK-MB (CK-2) CK-MB (CK-2) Rel Index Total Protein Albumin TSH Urine WBC (Auto) Salicylates 03/22/17 03/22/17 03/23/17 13:46 21:16 00:23 WBC RBC Hgb Hct MCV MCH RDW Plt Count Lymph % (Auto) [place] % (Auto) Eos % (Auto) [place] # Seg Neutrophils % Seg Neuts % (Manual) Lymphocytes % (Manual) Seg Neutrophils # Seg Neutrophils # Man Lymphocytes # (Manual) APTT POC ABG pH ABG pH POC ABG pCO2 POC ABG pO2 ABG pO2 ABG HCO3 ABG Base Excess ABG Hemoglobin VBG pH Oxyhemoglobin Sodium Potassium Chloride Carbon Dioxide BUN Creatinine Glucose POC Glucose 269 H 197 H 126 H Lactic Acid Calcium AST ALT Alkaline Phosphatase CK-MB (CK-2) CK-MB (CK-2) Rel Index Total Protein Albumin TSH Urine WBC (Auto) Salicylates 03/23/17 03/23/17 03/23/17 05:39 14:06 21:39 WBC RBC Hgb Hct MCV MCH RDW Plt Count Lymph % (Auto) [place] % (Auto) Eos % (Auto) [place] # Seg Neutrophils % Seg Neuts % (Manual) Lymphocytes % (Manual) Seg Neutrophils # Seg Neutrophils # Man Lymphocytes # (Manual) APTT POC ABG pH ABG pH POC ABG pCO2 POC ABG pO2 ABG pO2 ABG HCO3 ABG Base Excess ABG Hemoglobin VBG pH Oxyhemoglobin Sodium Potassium Chloride Carbon Dioxide BUN Creatinine Glucose POC Glucose 234 H 241 H 248 H Lactic Acid Calcium AST ALT Alkaline Phosphatase CK-MB (CK-2) CK-MB (CK-2) Rel Index Total Protein Albumin TSH Urine WBC (Auto) Salicylates 03/24/17 03/24/17 03/25/17 05:06 21:46 05:38 WBC RBC Hgb Hct MCV MCH RDW Plt Count Lymph % (Auto) [place] % (Auto) Eos % (Auto) [place] # Seg Neutrophils % Seg Neuts % (Manual) Lymphocytes % (Manual) Seg Neutrophils # Seg Neutrophils # Man Lymphocytes # (Manual) APTT POC ABG pH ABG pH POC ABG pCO2 POC ABG pO2 ABG pO2 ABG HCO3 ABG Base Excess ABG Hemoglobin VBG pH Oxyhemoglobin Sodium Potassium Chloride Carbon Dioxide BUN Creatinine Glucose POC Glucose 232 H 276 H 242 H Lactic Acid Calcium AST ALT Alkaline Phosphatase CK-MB (CK-2) CK-MB (CK-2) Rel Index Total Protein Albumin TSH Urine WBC (Auto) Salicylates 03/25/17 03/25/17 03/26/17 14:30 23:14 13:53 WBC RBC Hgb Hct MCV MCH RDW Plt Count Lymph % (Auto) [place] % (Auto) Eos % (Auto) [place] # Seg Neutrophils % Seg Neuts % (Manual) Lymphocytes % (Manual) Seg Neutrophils # Seg Neutrophils # Man Lymphocytes # (Manual) APTT POC ABG pH ABG pH POC ABG pCO2 POC ABG pO2 ABG pO2 ABG HCO3 ABG Base Excess ABG Hemoglobin VBG pH Oxyhemoglobin Sodium Potassium Chloride Carbon Dioxide BUN Creatinine Glucose POC Glucose 246 H 208 H 195 H Lactic Acid Calcium AST ALT Alkaline Phosphatase CK-MB (CK-2) CK-MB (CK-2) Rel Index Total Protein Albumin TSH Urine WBC (Auto) Salicylates 03/26/17 03/27/17 03/27/17 21:58 05:18 14:57 WBC RBC Hgb Hct MCV MCH RDW Plt Count Lymph % (Auto) [place] % (Auto) Eos % (Auto) [place] # Seg Neutrophils % Seg Neuts % (Manual) Lymphocytes % (Manual) Seg Neutrophils # Seg Neutrophils # Man Lymphocytes # (Manual) APTT POC ABG pH ABG pH POC ABG pCO2 POC ABG pO2 ABG pO2 ABG HCO3 ABG Base Excess ABG Hemoglobin VBG pH Oxyhemoglobin Sodium Potassium Chloride Carbon Dioxide BUN Creatinine Glucose POC Glucose 241 H 199 H 269 H Lactic Acid Calcium AST ALT Alkaline Phosphatase CK-MB (CK-2) CK-MB (CK-2) Rel Index Total Protein Albumin TSH Urine WBC (Auto) Salicylates 03/27/17 03/28/17 03/28/17 21:33 13:52 21:29 WBC RBC Hgb Hct MCV MCH RDW Plt Count Lymph % (Auto) [place] % (Auto) Eos % (Auto) [place] # Seg Neutrophils % Seg Neuts % (Manual) Lymphocytes % (Manual) Seg Neutrophils # Seg Neutrophils # Man Lymphocytes # (Manual) APTT POC ABG pH ABG pH POC ABG pCO2 POC ABG pO2 ABG pO2 ABG HCO3 ABG Base Excess ABG Hemoglobin VBG pH Oxyhemoglobin Sodium Potassium Chloride Carbon Dioxide BUN Creatinine Glucose POC Glucose 214 H 243 H 286 H Lactic Acid Calcium AST ALT Alkaline Phosphatase CK-MB (CK-2) CK-MB (CK-2) Rel Index Total Protein Albumin TSH Urine WBC (Auto) Salicylates 03/29/17 03/29/17 03/29/17 04:32 04:32 13:58 WBC RBC Hgb 10.6 L Hct 32.9 L MCV 78 L MCH 25 L RDW 17.6 H Plt Count Lymph % (Auto) 38.0 H [place] % (Auto) 9.7 H Eos % (Auto) [place] # Seg Neutrophils % Seg Neuts % (Manual) Lymphocytes % (Manual) Seg Neutrophils # Seg Neutrophils # Man Lymphocytes # (Manual) APTT POC ABG pH ABG pH POC ABG pCO2 POC ABG pO2 ABG pO2 ABG HCO3 ABG Base Excess ABG Hemoglobin VBG pH Oxyhemoglobin Sodium 132 L Potassium Chloride 94.0 L Carbon Dioxide BUN 28 H Creatinine 0.5 L Glucose 236 H POC Glucose 171 H Lactic Acid Calcium AST ALT 71 H Alkaline Phosphatase 391 H CK-MB (CK-2) CK-MB (CK-2) Rel Index Total Protein 8.3 H Albumin 2.9 L TSH Urine WBC (Auto) Salicylates 03/29/17 03/30/17 03/30/17 20:59 06:07 11:52 WBC RBC Hgb Hct MCV MCH RDW Plt Count Lymph % (Auto) [place] % (Auto) Eos % (Auto) [place] # Seg Neutrophils % Seg Neuts % (Manual) Lymphocytes % (Manual) Seg Neutrophils # Seg Neutrophils # Man Lymphocytes # (Manual) APTT POC ABG pH ABG pH POC ABG pCO2 POC ABG pO2 ABG pO2 ABG HCO3 ABG Base Excess ABG Hemoglobin VBG pH Oxyhemoglobin Sodium Potassium Chloride Carbon Dioxide BUN Creatinine Glucose POC Glucose 215 H 259 H 197 H Lactic Acid Calcium AST ALT Alkaline Phosphatase CK-MB (CK-2) CK-MB (CK-2) Rel Index Total Protein Albumin TSH Urine WBC (Auto) Salicylates 03/30/17 03/31/17 03/31/17 21:34 05:42 14:34 WBC RBC Hgb Hct MCV MCH RDW Plt Count Lymph % (Auto) [place] % (Auto) Eos % (Auto) [place] # Seg Neutrophils % Seg Neuts % (Manual) Lymphocytes % (Manual) Seg Neutrophils # Seg Neutrophils # Man Lymphocytes # (Manual) APTT POC ABG pH ABG pH POC ABG pCO2 POC ABG pO2 ABG pO2 ABG HCO3 ABG Base Excess ABG Hemoglobin VBG pH Oxyhemoglobin Sodium Potassium Chloride Carbon Dioxide BUN Creatinine Glucose POC Glucose 207 H 184 H 213 H Lactic Acid Calcium AST ALT Alkaline Phosphatase CK-MB (CK-2) CK-MB (CK-2) Rel Index Total Protein Albumin TSH Urine WBC (Auto) Salicylates 03/31/17 04/01/17 04/01/17 21:32 05:53 13:48 WBC RBC Hgb Hct MCV MCH RDW Plt Count Lymph % (Auto) [place] % (Auto) Eos % (Auto) [place] # Seg Neutrophils % Seg Neuts % (Manual) Lymphocytes % (Manual) Seg Neutrophils # Seg Neutrophils # Man Lymphocytes # (Manual) APTT POC ABG pH ABG pH POC ABG pCO2 POC ABG pO2 ABG pO2 ABG HCO3 ABG Base Excess ABG Hemoglobin VBG pH Oxyhemoglobin Sodium Potassium Chloride Carbon Dioxide BUN Creatinine Glucose POC Glucose 249 H 225 H 256 H Lactic Acid Calcium AST ALT Alkaline Phosphatase CK-MB (CK-2) CK-MB (CK-2) Rel Index Total Protein Albumin TSH Urine WBC (Auto) Salicylates 04/01/17 04/02/17 04/02/17 21:34 05:32 14:05 WBC RBC Hgb Hct MCV MCH RDW Plt Count Lymph % (Auto) [place] % (Auto) Eos % (Auto) [place] # Seg Neutrophils % Seg Neuts % (Manual) Lymphocytes % (Manual) Seg Neutrophils # Seg Neutrophils # Man Lymphocytes # (Manual) APTT POC ABG pH ABG pH POC ABG pCO2 POC ABG pO2 ABG pO2 ABG HCO3 ABG Base Excess ABG Hemoglobin VBG pH Oxyhemoglobin Sodium Potassium Chloride Carbon Dioxide BUN Creatinine Glucose POC Glucose 292 H 220 H 187 H Lactic Acid Calcium AST ALT Alkaline Phosphatase CK-MB (CK-2) CK-MB (CK-2) Rel Index Total Protein Albumin TSH Urine WBC (Auto) Salicylates 04/02/17 04/03/17 04/03/17 21:57 04:49 14:12 WBC RBC Hgb Hct MCV MCH RDW Plt Count Lymph % (Auto) [place] % (Auto) Eos % (Auto) [place] # Seg Neutrophils % Seg Neuts % (Manual) Lymphocytes % (Manual) Seg Neutrophils # Seg Neutrophils # Man Lymphocytes # (Manual) APTT POC ABG pH ABG pH POC ABG pCO2 POC ABG pO2 ABG pO2 ABG HCO3 ABG Base Excess ABG Hemoglobin VBG pH Oxyhemoglobin Sodium Potassium Chloride Carbon Dioxide BUN Creatinine Glucose POC Glucose 285 H 256 H 197 H Lactic Acid Calcium AST ALT Alkaline Phosphatase CK-MB (CK-2) CK-MB (CK-2) Rel Index Total Protein Albumin TSH Urine WBC (Auto) Salicylates 04/03/17 04/04/17 04/04/17 21:11 05:20 13:18 WBC RBC Hgb Hct MCV MCH RDW Plt Count Lymph % (Auto) [place] % (Auto) Eos % (Auto) [place] # Seg Neutrophils % Seg Neuts % (Manual) Lymphocytes % (Manual) Seg Neutrophils # Seg Neutrophils # Man Lymphocytes # (Manual) APTT POC ABG pH ABG pH POC ABG pCO2 POC ABG pO2 ABG pO2 ABG HCO3 ABG Base Excess ABG Hemoglobin VBG pH Oxyhemoglobin Sodium Potassium Chloride Carbon Dioxide BUN Creatinine Glucose POC Glucose 166 H 228 H 252 H Lactic Acid Calcium AST ALT Alkaline Phosphatase CK-MB (CK-2) CK-MB (CK-2) Rel Index Total Protein Albumin TSH Urine WBC (Auto) Salicylates 04/04/17 04/05/17 04/05/17 21:51 06:14 09:54 WBC RBC Hgb Hct MCV MCH RDW Plt Count Lymph % (Auto) [place] % (Auto) Eos % (Auto) [place] # Seg Neutrophils % Seg Neuts % (Manual) Lymphocytes % (Manual) Seg Neutrophils # Seg Neutrophils # Man Lymphocytes # (Manual) APTT POC ABG pH ABG pH POC ABG pCO2 POC ABG pO2 ABG pO2 ABG HCO3 ABG Base Excess ABG Hemoglobin VBG pH Oxyhemoglobin Sodium Potassium Chloride Carbon Dioxide BUN Creatinine Glucose POC Glucose 252 H 152 H 181 H Lactic Acid Calcium AST ALT Alkaline Phosphatase CK-MB (CK-2) CK-MB (CK-2) Rel Index Total Protein Albumin TSH Urine WBC (Auto) Salicylates 04/05/17 04/05/17 04/05/17 14:49 17:34 21:38 WBC RBC Hgb Hct MCV MCH RDW Plt Count Lymph % (Auto) [place] % (Auto) Eos % (Auto) [place] # Seg Neutrophils % Seg Neuts % (Manual) Lymphocytes % (Manual) Seg Neutrophils # Seg Neutrophils # Man Lymphocytes # (Manual) APTT POC ABG pH ABG pH POC ABG pCO2 POC ABG pO2 ABG pO2 ABG HCO3 ABG Base Excess ABG Hemoglobin VBG pH Oxyhemoglobin Sodium Potassium Chloride Carbon Dioxide BUN Creatinine Glucose POC Glucose 219 H 268 H 278 H Lactic Acid Calcium AST ALT Alkaline Phosphatase CK-MB (CK-2) CK-MB (CK-2) Rel Index Total Protein Albumin TSH Urine WBC (Auto) Salicylates 04/06/17 04/06/17 04/07/17 15:04 22:14 05:09 WBC RBC Hgb Hct MCV MCH RDW Plt Count Lymph % (Auto) [place] % (Auto) Eos % (Auto) [place] # Seg Neutrophils % Seg Neuts % (Manual) Lymphocytes % (Manual) Seg Neutrophils # Seg Neutrophils # Man Lymphocytes # (Manual) APTT POC ABG pH ABG pH POC ABG pCO2 POC ABG pO2 ABG pO2 ABG HCO3 ABG Base Excess ABG Hemoglobin VBG pH Oxyhemoglobin Sodium Potassium Chloride Carbon Dioxide BUN Creatinine Glucose POC Glucose 285 H 106 H 334 H Lactic Acid Calcium AST ALT Alkaline Phosphatase CK-MB (CK-2) CK-MB (CK-2) Rel Index Total Protein Albumin TSH Urine WBC (Auto) Salicylates 04/07/17 04/07/17 04/08/17 14:45 21:48 05:28 WBC RBC Hgb Hct MCV MCH RDW Plt Count Lymph % (Auto) [place] % (Auto) Eos % (Auto) [place] # Seg Neutrophils % Seg Neuts % (Manual) Lymphocytes % (Manual) Seg Neutrophils # Seg Neutrophils # Man Lymphocytes # (Manual) APTT POC ABG pH ABG pH POC ABG pCO2 POC ABG pO2 ABG pO2 ABG HCO3 ABG Base Excess ABG Hemoglobin VBG pH Oxyhemoglobin Sodium Potassium Chloride Carbon Dioxide BUN Creatinine Glucose POC Glucose 173 H 304 H 314 H Lactic Acid Calcium AST ALT Alkaline Phosphatase CK-MB (CK-2) CK-MB (CK-2) Rel Index Total Protein Albumin TSH Urine WBC (Auto) Salicylates 04/08/17 04/08/17 04/08/17 15:57 16:17 22:21 WBC RBC Hgb Hct MCV MCH RDW Plt Count Lymph % (Auto) [place] % (Auto) Eos % (Auto) [place] # Seg Neutrophils % Seg Neuts % (Manual) Lymphocytes % (Manual) Seg Neutrophils # Seg Neutrophils # Man Lymphocytes # (Manual) APTT POC ABG pH ABG pH POC ABG pCO2 POC ABG pO2 ABG pO2 ABG HCO3 ABG Base Excess ABG Hemoglobin VBG pH Oxyhemoglobin Sodium Potassium Chloride Carbon Dioxide BUN Creatinine Glucose POC Glucose 356 H 337 H 323 H Lactic Acid Calcium AST ALT Alkaline Phosphatase CK-MB (CK-2) CK-MB (CK-2) Rel Index Total Protein Albumin TSH Urine WBC (Auto) Salicylates 04/09/17 04/09/17 04/09/17 06:19 15:30 21:52 WBC RBC Hgb Hct MCV MCH RDW Plt Count Lymph % (Auto) [place] % (Auto) Eos % (Auto) [place] # Seg Neutrophils % Seg Neuts % (Manual) Lymphocytes % (Manual) Seg Neutrophils # Seg Neutrophils # Man Lymphocytes # (Manual) APTT POC ABG pH ABG pH POC ABG pCO2 POC ABG pO2 ABG pO2 ABG HCO3 ABG Base Excess ABG Hemoglobin VBG pH Oxyhemoglobin Sodium Potassium Chloride Carbon Dioxide BUN Creatinine Glucose POC Glucose 340 H 332 H 341 H Lactic Acid Calcium AST ALT Alkaline Phosphatase CK-MB (CK-2) CK-MB (CK-2) Rel Index Total Protein Albumin TSH Urine WBC (Auto) Salicylates 04/10/17 04/10/17 04/10/17 01:53 05:33 17:40 WBC RBC Hgb Hct MCV MCH RDW Plt Count Lymph % (Auto) [place] % (Auto) Eos % (Auto) [place] # Seg Neutrophils % Seg Neuts % (Manual) Lymphocytes % (Manual) Seg Neutrophils # Seg Neutrophils # Man Lymphocytes # (Manual) APTT POC ABG pH ABG pH POC ABG pCO2 POC ABG pO2 ABG pO2 ABG HCO3 ABG Base Excess ABG Hemoglobin VBG pH Oxyhemoglobin Sodium Potassium Chloride Carbon Dioxide BUN Creatinine Glucose POC Glucose 261 H 277 H 304 H Lactic Acid Calcium AST ALT Alkaline Phosphatase CK-MB (CK-2) CK-MB (CK-2) Rel Index Total Protein Albumin TSH Urine WBC (Auto) Salicylates 04/10/17 04/11/17 04/11/17 21:29 05:28 14:02 WBC RBC Hgb Hct MCV MCH RDW Plt Count Lymph % (Auto) [place] % (Auto) Eos % (Auto) [place] # Seg Neutrophils % Seg Neuts % (Manual) Lymphocytes % (Manual) Seg Neutrophils # Seg Neutrophils # Man Lymphocytes # (Manual) APTT POC ABG pH ABG pH POC ABG pCO2 POC ABG pO2 ABG pO2 ABG HCO3 ABG Base Excess ABG Hemoglobin VBG pH Oxyhemoglobin Sodium Potassium Chloride Carbon Dioxide BUN Creatinine Glucose POC Glucose 361 H 204 H 236 H Lactic Acid Calcium AST ALT Alkaline Phosphatase CK-MB (CK-2) CK-MB (CK-2) Rel Index Total Protein Albumin TSH Urine WBC (Auto) Salicylates 04/11/17 04/12/17 04/12/17 21:43 05:00 11:53 WBC RBC Hgb Hct MCV MCH RDW Plt Count Lymph % (Auto) [place] % (Auto) Eos % (Auto) [place] # Seg Neutrophils % Seg Neuts % (Manual) Lymphocytes % (Manual) Seg Neutrophils # Seg Neutrophils # Man Lymphocytes # (Manual) APTT POC ABG pH ABG pH POC ABG pCO2 POC ABG pO2 ABG pO2 ABG HCO3 ABG Base Excess ABG Hemoglobin VBG pH Oxyhemoglobin Sodium Potassium Chloride Carbon Dioxide BUN Creatinine Glucose POC Glucose 287 H 294 H 265 H Lactic Acid Calcium AST ALT Alkaline Phosphatase CK-MB (CK-2) CK-MB (CK-2) Rel Index Total Protein Albumin TSH Urine WBC (Auto) Salicylates 04/12/17 04/12/17 04/13/17 21:21 23:44 06:05 WBC RBC Hgb Hct MCV MCH RDW Plt Count Lymph % (Auto) [place] % (Auto) Eos % (Auto) [place] # Seg Neutrophils % Seg Neuts % (Manual) Lymphocytes % (Manual) Seg Neutrophils # Seg Neutrophils # Man Lymphocytes # (Manual) APTT POC ABG pH ABG pH POC ABG pCO2 POC ABG pO2 ABG pO2 ABG HCO3 ABG Base Excess ABG Hemoglobin VBG pH Oxyhemoglobin Sodium Potassium Chloride Carbon Dioxide BUN Creatinine Glucose POC Glucose 289 H 348 H 326 H Lactic Acid Calcium AST ALT Alkaline Phosphatase CK-MB (CK-2) CK-MB (CK-2) Rel Index Total Protein Albumin TSH Urine WBC (Auto) Salicylates 04/13/17 04/13/17 04/14/17 13:54 21:15 05:49 WBC RBC Hgb Hct MCV MCH RDW Plt Count Lymph % (Auto) [place] % (Auto) Eos % (Auto) [place] # Seg Neutrophils % Seg Neuts % (Manual) Lymphocytes % (Manual) Seg Neutrophils # Seg Neutrophils # Man Lymphocytes # (Manual) APTT POC ABG pH ABG pH POC ABG pCO2 POC ABG pO2 ABG pO2 ABG HCO3 ABG Base Excess ABG Hemoglobin VBG pH Oxyhemoglobin Sodium Potassium Chloride Carbon Dioxide BUN Creatinine Glucose POC Glucose 326 H 263 H 319 H Lactic Acid Calcium AST ALT Alkaline Phosphatase CK-MB (CK-2) CK-MB (CK-2) Rel Index Total Protein Albumin TSH Urine WBC (Auto) Salicylates 04/14/17 04/14/17 04/15/17 13:26 23:13 14:24 WBC RBC Hgb Hct MCV MCH RDW Plt Count Lymph % (Auto) [place] % (Auto) Eos % (Auto) [place] # Seg Neutrophils % Seg Neuts % (Manual) Lymphocytes % (Manual) Seg Neutrophils # Seg Neutrophils # Man Lymphocytes # (Manual) APTT POC ABG pH ABG pH POC ABG pCO2 POC ABG pO2 ABG pO2 ABG HCO3 ABG Base Excess ABG Hemoglobin VBG pH Oxyhemoglobin Sodium Potassium Chloride Carbon Dioxide BUN Creatinine Glucose POC Glucose 207 H 365 H 308 H Lactic Acid Calcium AST ALT Alkaline Phosphatase CK-MB (CK-2) CK-MB (CK-2) Rel Index Total Protein Albumin TSH Urine WBC (Auto) Salicylates 04/15/17 04/15/17 04/15/17 21:00 22:18 23:12 WBC RBC Hgb Hct MCV MCH RDW Plt Count Lymph % (Auto) [place] % (Auto) Eos % (Auto) [place] # Seg Neutrophils % Seg Neuts % (Manual) Lymphocytes % (Manual) Seg Neutrophils # Seg Neutrophils # Man Lymphocytes # (Manual) APTT POC ABG pH ABG pH POC ABG pCO2 POC ABG pO2 ABG pO2 ABG HCO3 ABG Base Excess ABG Hemoglobin VBG pH Oxyhemoglobin Sodium Potassium Chloride Carbon Dioxide BUN Creatinine Glucose POC Glucose 407 H 287 H 325 H Lactic Acid Calcium AST ALT Alkaline Phosphatase CK-MB (CK-2) CK-MB (CK-2) Rel Index Total Protein Albumin TSH Urine WBC (Auto) Salicylates 04/16/17 04/16/17 04/16/17 05:30 10:07 14:26 WBC RBC Hgb Hct MCV MCH RDW Plt Count Lymph % (Auto) [place] % (Auto) Eos % (Auto) [place] # Seg Neutrophils % Seg Neuts % (Manual) Lymphocytes % (Manual) Seg Neutrophils # Seg Neutrophils # Man Lymphocytes # (Manual) APTT POC ABG pH ABG pH POC ABG pCO2 POC ABG pO2 ABG pO2 ABG HCO3 ABG Base Excess ABG Hemoglobin VBG pH Oxyhemoglobin Sodium Potassium Chloride Carbon Dioxide BUN Creatinine Glucose POC Glucose 304 H 217 H 344 H Lactic Acid Calcium AST ALT Alkaline Phosphatase CK-MB (CK-2) CK-MB (CK-2) Rel Index Total Protein Albumin TSH Urine WBC (Auto) Salicylates 04/16/17 04/17/17 04/17/17 21:25 05:12 14:19 WBC RBC Hgb Hct MCV MCH RDW Plt Count Lymph % (Auto) [place] % (Auto) Eos % (Auto) [place] # Seg Neutrophils % Seg Neuts % (Manual) Lymphocytes % (Manual) Seg Neutrophils # Seg Neutrophils # Man Lymphocytes # (Manual) APTT POC ABG pH ABG pH POC ABG pCO2 POC ABG pO2 ABG pO2 ABG HCO3 ABG Base Excess ABG Hemoglobin VBG pH Oxyhemoglobin Sodium Potassium Chloride Carbon Dioxide BUN Creatinine Glucose POC Glucose 305 H 233 H 324 H Lactic Acid Calcium AST ALT Alkaline Phosphatase CK-MB (CK-2) CK-MB (CK-2) Rel Index Total Protein Albumin TSH Urine WBC (Auto) Salicylates 04/17/17 04/18/17 04/18/17 21:42 06:21 14:08 WBC RBC Hgb Hct MCV MCH RDW Plt Count Lymph % (Auto) [place] % (Auto) Eos % (Auto) [place] # Seg Neutrophils % Seg Neuts % (Manual) Lymphocytes % (Manual) Seg Neutrophils # Seg Neutrophils # Man Lymphocytes # (Manual) APTT POC ABG pH ABG pH POC ABG pCO2 POC ABG pO2 ABG pO2 ABG HCO3 ABG Base Excess ABG Hemoglobin VBG pH Oxyhemoglobin Sodium Potassium Chloride Carbon Dioxide BUN Creatinine Glucose POC Glucose 270 H 308 H 290 H Lactic Acid Calcium AST ALT Alkaline Phosphatase CK-MB (CK-2) CK-MB (CK-2) Rel Index Total Protein Albumin TSH Urine WBC (Auto) Salicylates 04/18/17 04/19/17 04/19/17 21:50 05:20 13:59 WBC RBC Hgb Hct MCV MCH RDW Plt Count Lymph % (Auto) [place] % (Auto) Eos % (Auto) [place] # Seg Neutrophils % Seg Neuts % (Manual) Lymphocytes % (Manual) Seg Neutrophils # Seg Neutrophils # Man Lymphocytes # (Manual) APTT POC ABG pH ABG pH POC ABG pCO2 POC ABG pO2 ABG pO2 ABG HCO3 ABG Base Excess ABG Hemoglobin VBG pH Oxyhemoglobin Sodium Potassium Chloride Carbon Dioxide BUN Creatinine Glucose POC Glucose 167 H 372 H 321 H Lactic Acid Calcium AST ALT Alkaline Phosphatase CK-MB (CK-2) CK-MB (CK-2) Rel Index Total Protein Albumin TSH Urine WBC (Auto) Salicylates 04/19/17 04/20/17 04/20/17 21:16 14:18 21:34 WBC RBC Hgb Hct MCV MCH RDW Plt Count Lymph % (Auto) [place] % (Auto) Eos % (Auto) [place] # Seg Neutrophils % Seg Neuts % (Manual) Lymphocytes % (Manual) Seg Neutrophils # Seg Neutrophils # Man Lymphocytes # (Manual) APTT POC ABG pH ABG pH POC ABG pCO2 POC ABG pO2 ABG pO2 ABG HCO3 ABG Base Excess ABG Hemoglobin VBG pH Oxyhemoglobin Sodium Potassium Chloride Carbon Dioxide BUN Creatinine Glucose POC Glucose 182 H 218 H 121 H Lactic Acid Calcium AST ALT Alkaline Phosphatase CK-MB (CK-2) CK-MB (CK-2) Rel Index Total Protein Albumin TSH Urine WBC (Auto) Salicylates 04/21/17 04/21/17 04/21/17 00:08 05:16 12:41 WBC RBC Hgb Hct MCV MCH RDW Plt Count Lymph % (Auto) [place] % (Auto) Eos % (Auto) [place] # Seg Neutrophils % Seg Neuts % (Manual) Lymphocytes % (Manual) Seg Neutrophils # Seg Neutrophils # Man Lymphocytes # (Manual) APTT POC ABG pH ABG pH POC ABG pCO2 POC ABG pO2 ABG pO2 ABG HCO3 ABG Base Excess ABG Hemoglobin VBG pH Oxyhemoglobin Sodium Potassium Chloride Carbon Dioxide BUN Creatinine Glucose POC Glucose 128 H 120 H 216 H Lactic Acid Calcium AST ALT Alkaline Phosphatase CK-MB (CK-2) CK-MB (CK-2) Rel Index Total Protein Albumin TSH Urine WBC (Auto) Salicylates 04/21/17 04/22/17 04/22/17 23:40 14:12 23:38 WBC RBC Hgb Hct MCV MCH RDW Plt Count Lymph % (Auto) [place] % (Auto) Eos % (Auto) [place] # Seg Neutrophils % Seg Neuts % (Manual) Lymphocytes % (Manual) Seg Neutrophils # Seg Neutrophils # Man Lymphocytes # (Manual) APTT POC ABG pH ABG pH POC ABG pCO2 POC ABG pO2 ABG pO2 ABG HCO3 ABG Base Excess ABG Hemoglobin VBG pH Oxyhemoglobin Sodium Potassium Chloride Carbon Dioxide BUN Creatinine Glucose POC Glucose 157 H 242 H 117 H Lactic Acid Calcium AST ALT Alkaline Phosphatase CK-MB (CK-2) CK-MB (CK-2) Rel Index Total Protein Albumin TSH Urine WBC (Auto) Salicylates 04/23/17 04/23/17 04/24/17 05:18 14:01 03:24 WBC RBC Hgb Hct MCV MCH RDW Plt Count Lymph % (Auto) [place] % (Auto) Eos % (Auto) [place] # Seg Neutrophils % Seg Neuts % (Manual) Lymphocytes % (Manual) Seg Neutrophils # Seg Neutrophils # Man Lymphocytes # (Manual) APTT POC ABG pH ABG pH POC ABG pCO2 POC ABG pO2 ABG pO2 ABG HCO3 ABG Base Excess ABG Hemoglobin VBG pH Oxyhemoglobin Sodium Potassium Chloride Carbon Dioxide BUN Creatinine Glucose POC Glucose 163 H 57 L 177 H Lactic Acid Calcium AST ALT Alkaline Phosphatase CK-MB (CK-2) CK-MB (CK-2) Rel Index Total Protein Albumin TSH Urine WBC (Auto) Salicylates 04/24/17 04/24/17 04/24/17 04:00 04:00 06:33 WBC RBC Hgb 9.9 L Hct 30.0 L MCV 79 L MCH 26 L RDW 17.1 H Plt Count 625 H Lymph % (Auto) [place] % (Auto) 8.4 H Eos % (Auto) [place] # Seg Neutrophils % Seg Neuts % (Manual) Lymphocytes % (Manual) Seg Neutrophils # Seg Neutrophils # Man Lymphocytes # (Manual) APTT POC ABG pH ABG pH POC ABG pCO2 POC ABG pO2 ABG pO2 ABG HCO3 ABG Base Excess ABG Hemoglobin VBG pH Oxyhemoglobin Sodium 136 L Potassium Chloride 94.9 L Carbon Dioxide BUN 40 H Creatinine 0.6 L Glucose 176 H POC Glucose 230 H Lactic Acid Calcium AST 67 H ALT Alkaline Phosphatase 294 H CK-MB (CK-2) CK-MB (CK-2) Rel Index Total Protein 9.0 H Albumin 2.5 L TSH Urine WBC (Auto) Salicylates 04/24/17 04/25/17 04/25/17 13:50 00:22 02:55 WBC RBC 3.54 L Hgb 9.0 L Hct 27.9 L MCV 79 L MCH 26 L RDW 17.5 H Plt Count 574 H Lymph % (Auto) [place] % (Auto) 10.4 H Eos % (Auto) [place] # 1.0 H Seg Neutrophils % Seg Neuts % (Manual) Lymphocytes % (Manual) Seg Neutrophils # Seg Neutrophils # Man Lymphocytes # (Manual) APTT POC ABG pH ABG pH POC ABG pCO2 POC ABG pO2 ABG pO2 ABG HCO3 ABG Base Excess ABG Hemoglobin VBG pH Oxyhemoglobin Sodium Potassium Chloride Carbon Dioxide BUN Creatinine Glucose POC Glucose 116 H < 40 L Lactic Acid Calcium AST ALT Alkaline Phosphatase CK-MB (CK-2) CK-MB (CK-2) Rel Index Total Protein Albumin TSH Urine WBC (Auto) Salicylates 04/25/17 04/25/17 04/25/17 02:55 11:15 18:36 WBC RBC Hgb Hct MCV MCH RDW Plt Count Lymph % (Auto) [place] % (Auto) Eos % (Auto) [place] # Seg Neutrophils % Seg Neuts % (Manual) Lymphocytes % (Manual) Seg Neutrophils # Seg Neutrophils # Man Lymphocytes # (Manual) APTT POC ABG pH ABG pH POC ABG pCO2 POC ABG pO2 ABG pO2 ABG HCO3 ABG Base Excess ABG Hemoglobin VBG pH Oxyhemoglobin Sodium Potassium Chloride 96.2 L Carbon Dioxide BUN 39 H Creatinine 0.7 L Glucose 125 H POC Glucose 227 H 280 H Lactic Acid Calcium AST ALT Alkaline Phosphatase 247 H CK-MB (CK-2) CK-MB (CK-2) Rel Index Total Protein Albumin 2.7 L TSH Urine WBC (Auto) Salicylates 04/25/17 04/26/17 04/26/17 21:49 06:53 07:27 WBC RBC 3.61 L Hgb 9.1 L Hct 28.1 L MCV 78 L MCH 25 L RDW 17.4 H Plt Count 594 H Lymph % (Auto) [place] % (Auto) 9.2 H Eos % (Auto) [place] # 1.0 H Seg Neutrophils % 70.6 H Seg Neuts % (Manual) Lymphocytes % (Manual) Seg Neutrophils # Seg Neutrophils # Man Lymphocytes # (Manual) APTT POC ABG pH ABG pH POC ABG pCO2 POC ABG pO2 ABG pO2 ABG HCO3 ABG Base Excess ABG Hemoglobin VBG pH Oxyhemoglobin Sodium Potassium Chloride Carbon Dioxide BUN Creatinine Glucose POC Glucose 192 H 60 L Lactic Acid Calcium AST ALT Alkaline Phosphatase CK-MB (CK-2) CK-MB (CK-2) Rel Index Total Protein Albumin TSH Urine WBC (Auto) Salicylates 04/26/17 04/26/17 04/26/17 07:27 07:28 13:32 WBC RBC Hgb Hct MCV MCH RDW Plt Count Lymph % (Auto) [place] % (Auto) Eos % (Auto) [place] # Seg Neutrophils % Seg Neuts % (Manual) Lymphocytes % (Manual) Seg Neutrophils # Seg Neutrophils # Man Lymphocytes # (Manual) APTT POC ABG pH ABG pH POC ABG pCO2 POC ABG pO2 ABG pO2 ABG HCO3 ABG Base Excess ABG Hemoglobin VBG pH Oxyhemoglobin Sodium Potassium Chloride 95.0 L Carbon Dioxide BUN 42 H Creatinine 0.7 L Glucose 172 H POC Glucose 190 H 168 H Lactic Acid Calcium AST 56 H ALT Alkaline Phosphatase 274 H CK-MB (CK-2) CK-MB (CK-2) Rel Index Total Protein 8.9 H Albumin 2.7 L TSH Urine WBC (Auto) Salicylates 04/26/17 04/27/17 04/27/17 23:36 05:10 05:10 WBC RBC 3.49 L Hgb 8.7 L Hct 27.0 L MCV 77 L MCH 25 L RDW 17.4 H Plt Count 558 H Lymph % (Auto) [place] % (Auto) 9.6 H Eos % (Auto) [place] # Seg Neutrophils % Seg Neuts % (Manual) Lymphocytes % (Manual) Seg Neutrophils # Seg Neutrophils # Man Lymphocytes # (Manual) APTT POC ABG pH ABG pH POC ABG pCO2 POC ABG pO2 ABG pO2 ABG HCO3 ABG Base Excess ABG Hemoglobin VBG pH Oxyhemoglobin Sodium 133 L Potassium Chloride 93.5 L Carbon Dioxide BUN 40 H Creatinine 0.7 L Glucose 179 H POC Glucose 204 H Lactic Acid Calcium AST 73 H ALT 58 H Alkaline Phosphatase 294 H CK-MB (CK-2) CK-MB (CK-2) Rel Index Total Protein 8.7 H Albumin 2.4 L TSH Urine WBC (Auto) Salicylates 04/27/17 04/27/17 04/27/17 05:45 14:08 23:46 WBC RBC Hgb Hct MCV MCH RDW Plt Count Lymph % (Auto) [place] % (Auto) Eos % (Auto) [place] # Seg Neutrophils % Seg Neuts % (Manual) Lymphocytes % (Manual) Seg Neutrophils # Seg Neutrophils # Man Lymphocytes # (Manual) APTT POC ABG pH ABG pH POC ABG pCO2 POC ABG pO2 ABG pO2 ABG HCO3 ABG Base Excess ABG Hemoglobin VBG pH Oxyhemoglobin Sodium Potassium Chloride Carbon Dioxide BUN Creatinine Glucose POC Glucose 200 H 206 H 207 H Lactic Acid Calcium AST ALT Alkaline Phosphatase CK-MB (CK-2) CK-MB (CK-2) Rel Index Total Protein Albumin TSH Urine WBC (Auto) Salicylates 04/28/17 04/28/17 04/28/17 04:48 04:53 05:10 WBC RBC 3.48 L Hgb 8.8 L Hct 26.7 L MCV 77 L MCH 25 L RDW 17.0 H Plt Count 515 H Lymph % (Auto) [place] % (Auto) 8.4 H Eos % (Auto) [place] # Seg Neutrophils % 70.6 H Seg Neuts % (Manual) Lymphocytes % (Manual) Seg Neutrophils # Seg Neutrophils # Man Lymphocytes # (Manual) APTT POC ABG pH ABG pH POC ABG pCO2 POC ABG pO2 ABG pO2 ABG HCO3 ABG Base Excess ABG Hemoglobin VBG pH Oxyhemoglobin Sodium Potassium Chloride Carbon Dioxide BUN Creatinine Glucose POC Glucose 43 L 41 L Lactic Acid Calcium AST ALT Alkaline Phosphatase CK-MB (CK-2) CK-MB (CK-2) Rel Index Total Protein Albumin TSH Urine WBC (Auto) Salicylates 04/28/17 04/28/17 04/28/17 05:10 14:06 22:07 WBC RBC Hgb Hct MCV MCH RDW Plt Count Lymph % (Auto) [place] % (Auto) Eos % (Auto) [place] # Seg Neutrophils % Seg Neuts % (Manual) Lymphocytes % (Manual) Seg Neutrophils # Seg Neutrophils # Man Lymphocytes # (Manual) APTT POC ABG pH ABG pH POC ABG pCO2 POC ABG pO2 ABG pO2 ABG HCO3 ABG Base Excess ABG Hemoglobin VBG pH Oxyhemoglobin Sodium 136 L Potassium Chloride 95.2 L Carbon Dioxide BUN 42 H Creatinine Glucose 63 L POC Glucose 303 H 227 H Lactic Acid Calcium AST 45 H ALT Alkaline Phosphatase 271 H CK-MB (CK-2) CK-MB (CK-2) Rel Index Total Protein 8.9 H Albumin 2.5 L TSH Urine WBC (Auto) Salicylates 04/29/17 04/29/17 04/29/17 06:40 14:11 21:35 WBC RBC Hgb Hct MCV MCH RDW Plt Count Lymph % (Auto) [place] % (Auto) Eos % (Auto) [place] # Seg Neutrophils % Seg Neuts % (Manual) Lymphocytes % (Manual) Seg Neutrophils # Seg Neutrophils # Man Lymphocytes # (Manual) APTT POC ABG pH ABG pH POC ABG pCO2 POC ABG pO2 ABG pO2 ABG HCO3 ABG Base Excess ABG Hemoglobin VBG pH Oxyhemoglobin Sodium Potassium Chloride Carbon Dioxide BUN Creatinine Glucose POC Glucose 254 H 244 H 184 H Lactic Acid Calcium AST ALT Alkaline Phosphatase CK-MB (CK-2) CK-MB (CK-2) Rel Index Total Protein Albumin TSH Urine WBC (Auto) Salicylates 04/30/17 04/30/17 04/30/17 05:17 14:03 22:08 WBC RBC Hgb Hct MCV MCH RDW Plt Count Lymph % (Auto) [place] % (Auto) Eos % (Auto) [place] # Seg Neutrophils % Seg Neuts % (Manual) Lymphocytes % (Manual) Seg Neutrophils # Seg Neutrophils # Man Lymphocytes # (Manual) APTT POC ABG pH ABG pH POC ABG pCO2 POC ABG pO2 ABG pO2 ABG HCO3 ABG Base Excess ABG Hemoglobin VBG pH Oxyhemoglobin Sodium Potassium Chloride Carbon Dioxide BUN Creatinine Glucose POC Glucose 173 H 182 H 247 H Lactic Acid Calcium AST ALT Alkaline Phosphatase CK-MB (CK-2) CK-MB (CK-2) Rel Index Total Protein Albumin TSH Urine WBC (Auto) Salicylates 05/01/17 05/01/17 05/01/17 05:04 15:37 18:50 WBC RBC Hgb Hct MCV MCH RDW Plt Count Lymph % (Auto) [place] % (Auto) Eos % (Auto) [place] # Seg Neutrophils % Seg Neuts % (Manual) Lymphocytes % (Manual) Seg Neutrophils # Seg Neutrophils # Man Lymphocytes # (Manual) APTT POC ABG pH ABG pH POC ABG pCO2 POC ABG pO2 ABG pO2 ABG HCO3 ABG Base Excess ABG Hemoglobin VBG pH Oxyhemoglobin Sodium Potassium Chloride Carbon Dioxide BUN Creatinine Glucose POC Glucose 335 H 68 L 144 H Lactic Acid Calcium AST ALT Alkaline Phosphatase CK-MB (CK-2) CK-MB (CK-2) Rel Index Total Protein Albumin TSH Urine WBC (Auto) Salicylates 05/01/17 05/02/17 05/02/17 22:13 04:59 14:06 WBC RBC Hgb Hct MCV MCH RDW Plt Count Lymph % (Auto) [place] % (Auto) Eos % (Auto) [place] # Seg Neutrophils % Seg Neuts % (Manual) Lymphocytes % (Manual) Seg Neutrophils # Seg Neutrophils # Man Lymphocytes # (Manual) APTT POC ABG pH ABG pH POC ABG pCO2 POC ABG pO2 ABG pO2 ABG HCO3 ABG Base Excess ABG Hemoglobin VBG pH Oxyhemoglobin Sodium Potassium Chloride Carbon Dioxide BUN Creatinine Glucose POC Glucose 192 H 225 H 165 H Lactic Acid Calcium AST ALT Alkaline Phosphatase CK-MB (CK-2) CK-MB (CK-2) Rel Index Total Protein Albumin TSH Urine WBC (Auto) Salicylates 05/02/17 05/03/17 05/03/17 21:20 05:16 16:56 WBC RBC Hgb Hct MCV MCH RDW Plt Count Lymph % (Auto) [place] % (Auto) Eos % (Auto) [place] # Seg Neutrophils % Seg Neuts % (Manual) Lymphocytes % (Manual) Seg Neutrophils # Seg Neutrophils # Man Lymphocytes # (Manual) APTT POC ABG pH ABG pH POC ABG pCO2 POC ABG pO2 ABG pO2 ABG HCO3 ABG Base Excess ABG Hemoglobin VBG pH Oxyhemoglobin Sodium Potassium Chloride Carbon Dioxide BUN Creatinine Glucose POC Glucose 181 H 323 H 125 H Lactic Acid Calcium AST ALT Alkaline Phosphatase CK-MB (CK-2) CK-MB (CK-2) Rel Index Total Protein Albumin TSH Urine WBC (Auto) Salicylates 05/03/17 05/04/17 05/04/17 21:46 05:01 14:24 WBC RBC Hgb Hct MCV MCH RDW Plt Count Lymph % (Auto) [place] % (Auto) Eos % (Auto) [place] # Seg Neutrophils % Seg Neuts % (Manual) Lymphocytes % (Manual) Seg Neutrophils # Seg Neutrophils # Man Lymphocytes # (Manual) APTT POC ABG pH ABG pH POC ABG pCO2 POC ABG pO2 ABG pO2 ABG HCO3 ABG Base Excess ABG Hemoglobin VBG pH Oxyhemoglobin Sodium Potassium Chloride Carbon Dioxide BUN Creatinine Glucose POC Glucose 210 H 360 H 219 H Lactic Acid Calcium AST ALT Alkaline Phosphatase CK-MB (CK-2) CK-MB (CK-2) Rel Index Total Protein Albumin TSH Urine WBC (Auto) Salicylates 05/04/17 05/05/17 05/05/17 21:39 01:58 05:13 WBC RBC Hgb Hct MCV MCH RDW Plt Count Lymph % (Auto) [place] % (Auto) Eos % (Auto) [place] # Seg Neutrophils % Seg Neuts % (Manual) Lymphocytes % (Manual) Seg Neutrophils # Seg Neutrophils # Man Lymphocytes # (Manual) APTT POC ABG pH ABG pH POC ABG pCO2 POC ABG pO2 ABG pO2 ABG HCO3 ABG Base Excess ABG Hemoglobin VBG pH Oxyhemoglobin Sodium Potassium Chloride Carbon Dioxide BUN Creatinine Glucose POC Glucose 126 H 175 H 267 H Lactic Acid Calcium AST ALT Alkaline Phosphatase CK-MB (CK-2) CK-MB (CK-2) Rel Index Total Protein Albumin TSH Urine WBC (Auto) Salicylates 05/05/17 05/05/17 05/05/17 12:19 14:11 21:18 WBC RBC Hgb Hct MCV MCH RDW Plt Count Lymph % (Auto) [place] % (Auto) Eos % (Auto) [place] # Seg Neutrophils % Seg Neuts % (Manual) Lymphocytes % (Manual) Seg Neutrophils # Seg Neutrophils # Man Lymphocytes # (Manual) APTT POC ABG pH ABG pH POC ABG pCO2 POC ABG pO2 ABG pO2 ABG HCO3 ABG Base Excess ABG Hemoglobin VBG pH Oxyhemoglobin Sodium Potassium Chloride Carbon Dioxide BUN Creatinine Glucose POC Glucose 221 H 205 H 156 H Lactic Acid Calcium AST ALT Alkaline Phosphatase CK-MB (CK-2) CK-MB (CK-2) Rel Index Total Protein Albumin TSH Urine WBC (Auto) Salicylates 05/06/17 05/06/17 05/06/17 06:02 15:26 21:43 WBC RBC Hgb Hct MCV MCH RDW Plt Count Lymph % (Auto) [place] % (Auto) Eos % (Auto) [place] # Seg Neutrophils % Seg Neuts % (Manual) Lymphocytes % (Manual) Seg Neutrophils # Seg Neutrophils # Man Lymphocytes # (Manual) APTT POC ABG pH ABG pH POC ABG pCO2 POC ABG pO2 ABG pO2 ABG HCO3 ABG Base Excess ABG Hemoglobin VBG pH Oxyhemoglobin Sodium Potassium Chloride Carbon Dioxide BUN Creatinine Glucose POC Glucose 263 H 143 H 145 H Lactic Acid Calcium AST ALT Alkaline Phosphatase CK-MB (CK-2) CK-MB (CK-2) Rel Index Total Protein Albumin TSH Urine WBC (Auto) Salicylates 05/07/17 05/07/17 05/07/17 05:52 21:46 21:49 WBC RBC Hgb Hct MCV MCH RDW Plt Count Lymph % (Auto) [place] % (Auto) Eos % (Auto) [place] # Seg Neutrophils % Seg Neuts % (Manual) Lymphocytes % (Manual) Seg Neutrophils # Seg Neutrophils # Man Lymphocytes # (Manual) APTT POC ABG pH ABG pH POC ABG pCO2 POC ABG pO2 ABG pO2 ABG HCO3 ABG Base Excess ABG Hemoglobin VBG pH Oxyhemoglobin Sodium Potassium Chloride Carbon Dioxide BUN Creatinine Glucose POC Glucose 242 H < 40 L < 40 L Lactic Acid Calcium AST ALT Alkaline Phosphatase CK-MB (CK-2) CK-MB (CK-2) Rel Index Total Protein Albumin TSH Urine WBC (Auto) Salicylates 05/07/17 05/08/17 05/09/17 22:41 06:14 00:02 WBC RBC Hgb Hct MCV MCH RDW Plt Count Lymph % (Auto) [place] % (Auto) Eos % (Auto) [place] # Seg Neutrophils % Seg Neuts % (Manual) Lymphocytes % (Manual) Seg Neutrophils # Seg Neutrophils # Man Lymphocytes # (Manual) APTT POC ABG pH ABG pH POC ABG pCO2 POC ABG pO2 ABG pO2 ABG HCO3 ABG Base Excess ABG Hemoglobin VBG pH Oxyhemoglobin Sodium Potassium Chloride Carbon Dioxide BUN Creatinine Glucose POC Glucose 183 H 329 H 130 H Lactic Acid Calcium AST ALT Alkaline Phosphatase CK-MB (CK-2) CK-MB (CK-2) Rel Index Total Protein Albumin TSH Urine WBC (Auto) Salicylates 05/09/17 05/09/17 05/09/17 06:08 14:06 21:44 WBC RBC Hgb Hct MCV MCH RDW Plt Count Lymph % (Auto) [place] % (Auto) Eos % (Auto) [place] # Seg Neutrophils % Seg Neuts % (Manual) Lymphocytes % (Manual) Seg Neutrophils # Seg Neutrophils # Man Lymphocytes # (Manual) APTT POC ABG pH ABG pH POC ABG pCO2 POC ABG pO2 ABG pO2 ABG HCO3 ABG Base Excess ABG Hemoglobin VBG pH Oxyhemoglobin Sodium Potassium Chloride Carbon Dioxide BUN Creatinine Glucose POC Glucose 241 H 251 H 198 H Lactic Acid Calcium AST ALT Alkaline Phosphatase CK-MB (CK-2) CK-MB (CK-2) Rel Index Total Protein Albumin TSH Urine WBC (Auto) Salicylates 05/10/17 05/10/17 05/10/17 05:18 14:44 21:53 WBC RBC Hgb Hct MCV MCH RDW Plt Count Lymph % (Auto) [place] % (Auto) Eos % (Auto) [place] # Seg Neutrophils % Seg Neuts % (Manual) Lymphocytes % (Manual) Seg Neutrophils # Seg Neutrophils # Man Lymphocytes # (Manual) APTT POC ABG pH ABG pH POC ABG pCO2 POC ABG pO2 ABG pO2 ABG HCO3 ABG Base Excess ABG Hemoglobin VBG pH Oxyhemoglobin Sodium Potassium Chloride Carbon Dioxide BUN Creatinine Glucose POC Glucose 166 H 224 H 171 H Lactic Acid Calcium AST ALT Alkaline Phosphatase CK-MB (CK-2) CK-MB (CK-2) Rel Index Total Protein Albumin TSH Urine WBC (Auto) Salicylates 05/11/17 05/11/17 05/11/17 05:45 13:44 21:42 WBC RBC Hgb Hct MCV MCH RDW Plt Count Lymph % (Auto) [place] % (Auto) Eos % (Auto) [place] # Seg Neutrophils % Seg Neuts % (Manual) Lymphocytes % (Manual) Seg Neutrophils # Seg Neutrophils # Man Lymphocytes # (Manual) APTT POC ABG pH ABG pH POC ABG pCO2 POC ABG pO2 ABG pO2 ABG HCO3 ABG Base Excess ABG Hemoglobin VBG pH Oxyhemoglobin Sodium Potassium Chloride Carbon Dioxide BUN Creatinine Glucose POC Glucose 199 H 150 H 163 H Lactic Acid Calcium AST ALT Alkaline Phosphatase CK-MB (CK-2) CK-MB (CK-2) Rel Index Total Protein Albumin TSH Urine WBC (Auto) Salicylates 05/12/17 05/12/17 05/12/17 06:03 13:59 21:22 WBC RBC Hgb Hct MCV MCH RDW Plt Count Lymph % (Auto) [place] % (Auto) Eos % (Auto) [place] # Seg Neutrophils % Seg Neuts % (Manual) Lymphocytes % (Manual) Seg Neutrophils # Seg Neutrophils # Man Lymphocytes # (Manual) APTT POC ABG pH ABG pH POC ABG pCO2 POC ABG pO2 ABG pO2 ABG HCO3 ABG Base Excess ABG Hemoglobin VBG pH Oxyhemoglobin Sodium Potassium Chloride Carbon Dioxide BUN Creatinine Glucose POC Glucose 147 H 243 H 116 H Lactic Acid Calcium AST ALT Alkaline Phosphatase CK-MB (CK-2) CK-MB (CK-2) Rel Index Total Protein Albumin TSH Urine WBC (Auto) Salicylates 05/13/17 05/13/17 05/13/17 05:28 13:49 21:29 WBC RBC Hgb Hct MCV MCH RDW Plt Count Lymph % (Auto) [place] % (Auto) Eos % (Auto) [place] # Seg Neutrophils % Seg Neuts % (Manual) Lymphocytes % (Manual) Seg Neutrophils # Seg Neutrophils # Man Lymphocytes # (Manual) APTT POC ABG pH ABG pH POC ABG pCO2 POC ABG pO2 ABG pO2 ABG HCO3 ABG Base Excess ABG Hemoglobin VBG pH Oxyhemoglobin Sodium Potassium Chloride Carbon Dioxide BUN Creatinine Glucose POC Glucose 213 H 224 H 379 H Lactic Acid Calcium AST ALT Alkaline Phosphatase CK-MB (CK-2) CK-MB (CK-2) Rel Index Total Protein Albumin TSH Urine WBC (Auto) Salicylates 05/14/17 05/14/17 05/14/17 05:17 13:35 21:23 WBC RBC Hgb Hct MCV MCH RDW Plt Count Lymph % (Auto) [place] % (Auto) Eos % (Auto) [place] # Seg Neutrophils % Seg Neuts % (Manual) Lymphocytes % (Manual) Seg Neutrophils # Seg Neutrophils # Man Lymphocytes # (Manual) APTT POC ABG pH ABG pH POC ABG pCO2 POC ABG pO2 ABG pO2 ABG HCO3 ABG Base Excess ABG Hemoglobin VBG pH Oxyhemoglobin Sodium Potassium Chloride Carbon Dioxide BUN Creatinine Glucose POC Glucose 234 H 242 H 218 H Lactic Acid Calcium AST ALT Alkaline Phosphatase CK-MB (CK-2) CK-MB (CK-2) Rel Index Total Protein Albumin TSH Urine WBC (Auto) Salicylates 05/15/17 05/15/17 05/16/17 04:58 13:53 01:34 WBC RBC Hgb Hct MCV MCH RDW Plt Count Lymph % (Auto) [place] % (Auto) Eos % (Auto) [place] # Seg Neutrophils % Seg Neuts % (Manual) Lymphocytes % (Manual) Seg Neutrophils # Seg Neutrophils # Man Lymphocytes # (Manual) APTT POC ABG pH ABG pH POC ABG pCO2 POC ABG pO2 ABG pO2 ABG HCO3 ABG Base Excess ABG Hemoglobin VBG pH Oxyhemoglobin Sodium Potassium Chloride Carbon Dioxide BUN Creatinine Glucose POC Glucose 310 H 193 H 263 H Lactic Acid Calcium AST ALT Alkaline Phosphatase CK-MB (CK-2) CK-MB (CK-2) Rel Index Total Protein Albumin TSH Urine WBC (Auto) Salicylates 05/16/17 05/16/17 05/16/17 06:03 14:36 21:59 WBC RBC Hgb Hct MCV MCH RDW Plt Count Lymph % (Auto) [place] % (Auto) Eos % (Auto) [place] # Seg Neutrophils % Seg Neuts % (Manual) Lymphocytes % (Manual) Seg Neutrophils # Seg Neutrophils # Man Lymphocytes # (Manual) APTT POC ABG pH ABG pH POC ABG pCO2 POC ABG pO2 ABG pO2 ABG HCO3 ABG Base Excess ABG Hemoglobin VBG pH Oxyhemoglobin Sodium Potassium Chloride Carbon Dioxide BUN Creatinine Glucose POC Glucose 330 H 272 H 198 H Lactic Acid Calcium AST ALT Alkaline Phosphatase CK-MB (CK-2) CK-MB (CK-2) Rel Index Total Protein Albumin TSH Urine WBC (Auto) Salicylates 0205/17/17 05/18/17 05:48 13:59 05:27 WBC RBC Hgb Hct MCV MCH RDW Plt Count Lymph % (Auto) [place] % (Auto) Eos % (Auto) [place] # Seg Neutrophils % Seg Neuts % (Manual) Lymphocytes % (Manual) Seg Neutrophils # Seg Neutrophils # Man Lymphocytes # (Manual) APTT POC ABG pH ABG pH POC ABG pCO2 POC ABG pO2 ABG pO2 ABG HCO3 ABG Base Excess ABG Hemoglobin VBG pH Oxyhemoglobin Sodium Potassium Chloride Carbon Dioxide BUN Creatinine Glucose POC Glucose 204 H 229 H 152 H Lactic Acid Calcium AST ALT Alkaline Phosphatase CK-MB (CK-2) CK-MB (CK-2) Rel Index Total Protein Albumin TSH Urine WBC (Auto) Salicylates 05/18/17 05/18/17 05/19/17 14:16 21:27 04:59 WBC RBC Hgb Hct MCV MCH RDW Plt Count Lymph % (Auto) [place] % (Auto) Eos % (Auto) [place] # Seg Neutrophils % Seg Neuts % (Manual) Lymphocytes % (Manual) Seg Neutrophils # Seg Neutrophils # Man Lymphocytes # (Manual) APTT POC ABG pH ABG pH POC ABG pCO2 POC ABG pO2 ABG pO2 ABG HCO3 ABG Base Excess ABG Hemoglobin VBG pH Oxyhemoglobin Sodium Potassium Chloride Carbon Dioxide BUN Creatinine Glucose POC Glucose 217 H 202 H 131 H Lactic Acid Calcium AST ALT Alkaline Phosphatase CK-MB (CK-2) CK-MB (CK-2) Rel Index Total Protein Albumin TSH Urine WBC (Auto) Salicylates 05/19/17 05/20/17 05/20/17 14:57 00:11 05:45 WBC RBC Hgb Hct MCV MCH RDW Plt Count Lymph % (Auto) [place] % (Auto) Eos % (Auto) [place] # Seg Neutrophils % Seg Neuts % (Manual) Lymphocytes % (Manual) Seg Neutrophils # Seg Neutrophils # Man Lymphocytes # (Manual) APTT POC ABG pH ABG pH POC ABG pCO2 POC ABG pO2 ABG pO2 ABG HCO3 ABG Base Excess ABG Hemoglobin VBG pH Oxyhemoglobin Sodium Potassium Chloride Carbon Dioxide BUN Creatinine Glucose POC Glucose 216 H 197 H 195 H Lactic Acid Calcium AST ALT Alkaline Phosphatase CK-MB (CK-2) CK-MB (CK-2) Rel Index Total Protein Albumin TSH Urine WBC (Auto) Salicylates 05/20/17 05/20/17 05/21/17 13:29 22:11 05:43 WBC RBC Hgb Hct MCV MCH RDW Plt Count Lymph % (Auto) [place] % (Auto) Eos % (Auto) [place] # Seg Neutrophils % Seg Neuts % (Manual) Lymphocytes % (Manual) Seg Neutrophils # Seg Neutrophils # Man Lymphocytes # (Manual) APTT POC ABG pH ABG pH POC ABG pCO2 POC ABG pO2 ABG pO2 ABG HCO3 ABG Base Excess ABG Hemoglobin VBG pH Oxyhemoglobin Sodium Potassium Chloride Carbon Dioxide BUN Creatinine Glucose POC Glucose 138 H 242 H 228 H Lactic Acid Calcium AST ALT Alkaline Phosphatase CK-MB (CK-2) CK-MB (CK-2) Rel Index Total Protein Albumin TSH Urine WBC (Auto) Salicylates 05/21/17 05/21/17 05/22/17 14:06 21:49 05:31 WBC RBC Hgb Hct MCV MCH RDW Plt Count Lymph % (Auto) [place] % (Auto) Eos % (Auto) [place] # Seg Neutrophils % Seg Neuts % (Manual) Lymphocytes % (Manual) Seg Neutrophils # Seg Neutrophils # Man Lymphocytes # (Manual) APTT POC ABG pH ABG pH POC ABG pCO2 POC ABG pO2 ABG pO2 ABG HCO3 ABG Base Excess ABG Hemoglobin VBG pH Oxyhemoglobin Sodium Potassium Chloride Carbon Dioxide BUN Creatinine Glucose POC Glucose 191 H 166 H 184 H Lactic Acid Calcium AST ALT Alkaline Phosphatase CK-MB (CK-2) CK-MB (CK-2) Rel Index Total Protein Albumin TSH Urine WBC (Auto) Salicylates 05/22/17 05/22/17 05/23/17 14:03 21:45 05:41 WBC RBC Hgb Hct MCV MCH RDW Plt Count Lymph % (Auto) [place] % (Auto) Eos % (Auto) [place] # Seg Neutrophils % Seg Neuts % (Manual) Lymphocytes % (Manual) Seg Neutrophils # Seg Neutrophils # Man Lymphocytes # (Manual) APTT POC ABG pH ABG pH POC ABG pCO2 POC ABG pO2 ABG pO2 ABG HCO3 ABG Base Excess ABG Hemoglobin VBG pH Oxyhemoglobin Sodium Potassium Chloride Carbon Dioxide BUN Creatinine Glucose POC Glucose 206 H 178 H 206 H Lactic Acid Calcium AST ALT Alkaline Phosphatase CK-MB (CK-2) CK-MB (CK-2) Rel Index Total Protein Albumin TSH Urine WBC (Auto) Salicylates 05/23/17 05/23/17 05/24/17 14:09 22:48 05:21 WBC RBC Hgb Hct MCV MCH RDW Plt Count Lymph % (Auto) [place] % (Auto) Eos % (Auto) [place] # Seg Neutrophils % Seg Neuts % (Manual) Lymphocytes % (Manual) Seg Neutrophils # Seg Neutrophils # Man Lymphocytes # (Manual) APTT POC ABG pH ABG pH POC ABG pCO2 POC ABG pO2 ABG pO2 ABG HCO3 ABG Base Excess ABG Hemoglobin VBG pH Oxyhemoglobin Sodium Potassium Chloride Carbon Dioxide BUN Creatinine Glucose POC Glucose 148 H 181 H 162 H Lactic Acid Calcium AST ALT Alkaline Phosphatase CK-MB (CK-2) CK-MB (CK-2) Rel Index Total Protein Albumin TSH Urine WBC (Auto) Salicylates 05/24/17 05/24/17 05/25/17 13:32 21:55 06:49 WBC RBC Hgb Hct MCV MCH RDW Plt Count Lymph % (Auto) [place] % (Auto) Eos % (Auto) [place] # Seg Neutrophils % Seg Neuts % (Manual) Lymphocytes % (Manual) Seg Neutrophils # Seg Neutrophils # Man Lymphocytes # (Manual) APTT POC ABG pH ABG pH POC ABG pCO2 POC ABG pO2 ABG pO2 ABG HCO3 ABG Base Excess ABG Hemoglobin VBG pH Oxyhemoglobin Sodium Potassium Chloride Carbon Dioxide BUN Creatinine Glucose POC Glucose 216 H 144 H 151 H Lactic Acid Calcium AST ALT Alkaline Phosphatase CK-MB (CK-2) CK-MB (CK-2) Rel Index Total Protein Albumin TSH Urine WBC (Auto) Salicylates 05/25/17 05/25/17 05/26/17 15:32 21:58 05:46 WBC RBC Hgb Hct MCV MCH RDW Plt Count Lymph % (Auto) [place] % (Auto) Eos % (Auto) [place] # Seg Neutrophils % Seg Neuts % (Manual) Lymphocytes % (Manual) Seg Neutrophils # Seg Neutrophils # Man Lymphocytes # (Manual) APTT POC ABG pH ABG pH POC ABG pCO2 POC ABG pO2 ABG pO2 ABG HCO3 ABG Base Excess ABG Hemoglobin VBG pH Oxyhemoglobin Sodium Potassium Chloride Carbon Dioxide BUN Creatinine Glucose POC Glucose 136 H 160 H 225 H Lactic Acid Calcium AST ALT Alkaline Phosphatase CK-MB (CK-2) CK-MB (CK-2) Rel Index Total Protein Albumin TSH Urine WBC (Auto) Salicylates 05/26/17 05/27/17 05/27/17 22:32 05:52 14:47 WBC RBC Hgb Hct MCV MCH RDW Plt Count Lymph % (Auto) [place] % (Auto) Eos % (Auto) [place] # Seg Neutrophils % Seg Neuts % (Manual) Lymphocytes % (Manual) Seg Neutrophils # Seg Neutrophils # Man Lymphocytes # (Manual) APTT POC ABG pH ABG pH POC ABG pCO2 POC ABG pO2 ABG pO2 ABG HCO3 ABG Base Excess ABG Hemoglobin VBG pH Oxyhemoglobin Sodium Potassium Chloride Carbon Dioxide BUN Creatinine Glucose POC Glucose 161 H 197 H 117 H Lactic Acid Calcium AST ALT Alkaline Phosphatase CK-MB (CK-2) CK-MB (CK-2) Rel Index Total Protein Albumin TSH Urine WBC (Auto) Salicylates 05/27/17 05/28/17 05/28/17 21:49 05:54 06:49 WBC RBC Hgb Hct MCV MCH RDW Plt Count Lymph % (Auto) [place] % (Auto) Eos % (Auto) [place] # Seg Neutrophils % Seg Neuts % (Manual) Lymphocytes % (Manual) Seg Neutrophils # Seg Neutrophils # Man Lymphocytes # (Manual) APTT POC ABG pH ABG pH POC ABG pCO2 POC ABG pO2 ABG pO2 ABG HCO3 ABG Base Excess ABG Hemoglobin VBG pH Oxyhemoglobin Sodium Potassium Chloride Carbon Dioxide BUN Creatinine Glucose POC Glucose 148 H 60 L 59 L Lactic Acid Calcium AST ALT Alkaline Phosphatase CK-MB (CK-2) CK-MB (CK-2) Rel Index Total Protein Albumin TSH Urine WBC (Auto) Salicylates 05/28/17 05/28/17 05/28/17 14:32 16:04 21:43 WBC RBC Hgb Hct MCV MCH RDW Plt Count Lymph % (Auto) [place] % (Auto) Eos % (Auto) [place] # Seg Neutrophils % Seg Neuts % (Manual) Lymphocytes % (Manual) Seg Neutrophils # Seg Neutrophils # Man Lymphocytes # (Manual) APTT POC ABG pH ABG pH POC ABG pCO2 POC ABG pO2 ABG pO2 ABG HCO3 ABG Base Excess ABG Hemoglobin VBG pH Oxyhemoglobin Sodium Potassium Chloride Carbon Dioxide BUN Creatinine Glucose POC Glucose 55 L 109 H 235 H Lactic Acid Calcium AST ALT Alkaline Phosphatase CK-MB (CK-2) CK-MB (CK-2) Rel Index Total Protein Albumin TSH Urine WBC (Auto) Salicylates 05/29/17 05/29/17 05/29/17 06:14 13:23 22:46 WBC RBC Hgb Hct MCV MCH RDW Plt Count Lymph % (Auto) [place] % (Auto) Eos % (Auto) [place] # Seg Neutrophils % Seg Neuts % (Manual) Lymphocytes % (Manual) Seg Neutrophils # Seg Neutrophils # Man Lymphocytes # (Manual) APTT POC ABG pH ABG pH POC ABG pCO2 POC ABG pO2 ABG pO2 ABG HCO3 ABG Base Excess ABG Hemoglobin VBG pH Oxyhemoglobin Sodium Potassium Chloride Carbon Dioxide BUN Creatinine Glucose POC Glucose 260 H 173 H 151 H Lactic Acid Calcium AST ALT Alkaline Phosphatase CK-MB (CK-2) CK-MB (CK-2) Rel Index Total Protein Albumin TSH Urine WBC (Auto) Salicylates 05/30/17 05/30/17 05:20 13:56 WBC RBC Hgb Hct MCV MCH RDW Plt Count Lymph % (Auto) [place] % (Auto) Eos % (Auto) [place] # Seg Neutrophils % Seg Neuts % (Manual) Lymphocytes % (Manual) Seg Neutrophils # Seg Neutrophils # Man Lymphocytes # (Manual) APTT POC ABG pH ABG pH POC ABG pCO2 POC ABG pO2 ABG pO2 ABG HCO3 ABG Base Excess ABG Hemoglobin VBG pH Oxyhemoglobin Sodium Potassium Chloride Carbon Dioxide BUN Creatinine Glucose POC Glucose 250 H 187 H Lactic Acid Calcium AST ALT Alkaline Phosphatase CK-MB (CK-2) CK-MB (CK-2) Rel Index Total Protein Albumin TSH Urine WBC (Auto) Salicylates
[2017-05-31] MEDS: HumuLIN R SUB-Q SCH ×3 (08:14→22:00)
[2017-05-31] MEDS: PEPCID PO SCH ×2 (10:31→21:56)
[2017-05-31] MEDS: LEVEMIR (NF) SUB-Q SCH (10:32)
[2017-05-31] MEDS: HEPARIN SUB-Q SCH ×2 (10:32→21:55)
--- NOTE | 2017-05-31 13:13 | Progress Note ---
Assessment and Plan Assessment and plan: 51 YO Male with CKD, HTN, DM presents to ED after found down and unresponsive by his neighbor, who subsequently called EMS. Upon arrival, patient found unresponsive on the floor with a serum glucose of 21, patient has a known history of alcohol abuse and delirium tremens. The patient was administered D5 approximate 500 mls during transport without change in mental status/level of consciousness. Pt seen and evaluated in ED was was found to be unable to protect his airway. Pt intubated and placed on vent support. Pt found to have evidence of hypothyroidism. He was started on Synthroid. He has since been in the ICU. tax services manager try to locate family, even spoke to the family who he lives with. They themselves were unaware of any family members. After ethics committee meeting on the patient. The decision was made to make him DO NOT RESUSCITATE and to transfer him to hospice. Given his very poor prognosis and poor likelihood of recovery. It was decided that was not his best interest to get trach and PEG. Therefore he'll be transferred to the hospice intubated. Now Awaiting on court ordered /state guardianship. Hypoglycemic brain injury Persistent vegetative state Metabolic encephalopathy Hypoglycemia/hypothermia, resolved Acute respiratory failure mechanical ventilator greater than 96 hours UTI with klebsiella, treated ( Cx + on 01/28), then with ESBL likely colonization hyponatremia, Hypothyroidism IDDM Hypertension low grade Fever, resolved - Cont supportive care and current medication. Monitor vitals, repeat cx on - no growth - increased dose of long acting insulin to 15 unit - Patient is DNR- needs guardianship from the state to give consent for further management, as has no family to give consent. 05/24/17: Resumed care, Guardianship has been obtained but no authority to withdraw care. Continue supportative care. No new clinical change History Interval history: Patient was seen and examined. Follow-up on current diagnosis. Imaging, nursing note, chart, labs and old chart reviewed. Patient remains intubated and unresponsive Hospitalist Physical - Physical exam Narrative exam: GEN: Severely fail contracted BMI 16.5, comatose HEENT: NCAT, NG tube and ET tube in place CVS/HEART: RRR, NORMAL S1S2, NO JVD, pulses present bilaterally CHEST/LUNGS: Symmetrical chest expansion, good air entry bilaterally GI/Abdomen: soft, ND, good bowel sounds, no guarding or rebound Neuro: comatose, doesn't follow commands Psych: Unresponsive - Constitutional Vitals: Temp Pulse Resp BP Pulse Ox 99.5 F 88 24 104/68 99 05/31/17 12:00 05/31/17 09:00 05/31/17 09:00 05/31/17 05:50 05/31/17 09:00 General appearance: Present: no acute distress Results - Labs CBC & Chem 7: 04/28/17 05:10 04/28/17 05:10 Labs: Laboratory Last Values WBC 9.3 K/mm3 (4.5-11.0) 04/28/17 05:10 RBC 3.48 M/mm3 (3.65-5.03) L 04/28/17 05:10 Hgb 8.8 gm/dl (11.8-15.2) L 04/28/17 05:10 Hct 26.7 % (35.5-45.6) L 04/28/17 05:10 MCV 77 fl (84-94) L 04/28/17 05:10 MCH 25 pg (28-32) L 04/28/17 05:10 MCHC 33 % (32-34) 04/28/17 05:10 RDW 17.0 % (13.2-15.2) H 04/28/17 05:10 Plt Count 515 K/mm3 (140-440) H 04/28/17 05:10 Lymph % (Auto) 18.4 % (13.4-35.0) 04/28/17 05:10 Stephens % (Auto) 8.4 % (0.0-7.3) H 04/28/17 05:10 Eos % (Auto) 1.8 % (0.0-4.3) 04/28/17 05:10 Baso % (Auto) 0.8 % (0.0-1.8) 04/28/17 05:10 Lymph # 1.7 K/mm3 (1.2-5.4) 04/28/17 05:10 Stephens # 0.8 K/mm3 (0.0-0.8) 04/28/17 05:10 Eos # 0.2 K/mm3 (0.0-0.4) 04/28/17 05:10 Baso # 0.1 K/mm3 (0.0-0.1) 04/28/17 05:10 Add Manual Diff Complete 01/10/17 04:30 Total Counted 100 01/10/17 04:30 Seg Neutrophils % 70.6 % (40.0-70.0) H 04/28/17 05:10 Seg Neuts % (Manual) 88.0 % (40.0-70.0) H 01/10/17 04:30 Band Neutrophils % 7.0 % 01/10/17 04:30 Lymphocytes % (Manual) 4.0 % (13.4-35.0) L 01/10/17 04:30 Reactive Lymphs % (Man) 0 % 01/10/17 04:30 Monocytes % (Manual) 1.0 % (0.0-7.3) 01/10/17 04:30 Eosinophils % (Manual) 0 % (0.0-4.3) 01/10/17 04:30 Basophils % (Manual) 0 % (0.0-1.8) 01/10/17 04:30 Metamyelocytes % 0 % 01/10/17 04:30 Myelocytes % 0 % 01/10/17 04:30 Promyelocytes % 0 % 01/10/17 04:30 Blast Cells % 0 % 01/10/17 04:30 Nucleated RBC % Not Reportable 01/10/17 04:30 Seg Neutrophils # 6.6 K/mm3 (1.8-7.7) 04/28/17 05:10 Seg Neutrophils # Man 21.2 K/mm3 (1.8-7.7) H 01/10/17 04:30 Band Neutrophils # 1.7 K/mm3 01/10/17 04:30 Lymphocytes # (Manual) 1.0 K/mm3 (1.2-5.4) L 01/10/17 04:30 Abs React Lymphs (Man) 0.0 K/mm3 01/10/17 04:30 Monocytes # (Manual) 0.2 K/mm3 (0.0-0.8) 01/10/17 04:30 Eosinophils # (Manual) 0.0 K/mm3 (0.0-0.4) 01/10/17 04:30 Basophils # (Manual) 0.0 K/mm3 (0.0-0.1) 01/10/17 04:30 Metamyelocytes # 0.0 K/mm3 01/10/17 04:30 Myelocytes # 0.0 K/mm3 01/10/17 04:30 Promyelocytes # 0.0 K/mm3 01/10/17 04:30 Blast Cells # 0.0 K/mm3 01/10/17 04:30 WBC Morphology Not Reportable 01/10/17 04:30 Hypersegmented Neuts Not Reportable 01/10/17 04:30 Hyposegmented Neuts Not Reportable 01/10/17 04:30 Hypogranular Neuts Not Reportable 01/10/17 04:30 Smudge Cells Not Reportable 01/10/17 04:30 Toxic Granulation Not Reportable 01/10/17 04:30 Toxic Vacuolation Not Reportable 01/10/17 04:30 Dohle Bodies Not Reportable 01/10/17 04:30 Pelger-Huet Anomaly Not Reportable 01/10/17 04:30 Shelby Rods Not Reportable 01/10/17 04:30 Platelet Estimate Consistent w auto 01/10/17 04:30 Clumped Platelets Not Reportable 01/10/17 04:30 Plt Clumps, EDTA Not Reportable 01/10/17 04:30 Large Platelets Not Reportable 01/10/17 04:30 Giant Platelets Not Reportable 01/10/17 04:30 Platelet Satelliting Not Reportable 01/10/17 04:30 Plt Morphology Comment Not Reportable 01/10/17 04:30 RBC Morphology Not Reportable 01/10/17 04:30 Dimorphic RBCs Not Reportable 01/10/17 04:30 Polychromasia Not Reportable 01/10/17 04:30 Hypochromasia 1+ 01/10/17 04:30 Poikilocytosis Not Reportable 01/10/17 04:30 Anisocytosis Not Reportable 01/10/17 04:30 Microcytosis Not Reportable 01/10/17 04:30 Macrocytosis Not Reportable 01/10/17 04:30 Spherocytes Not Reportable 01/10/17 04:30 Pappenheimer Bodies Not Reportable 01/10/17 04:30 Sickle Cells Not Reportable 01/10/17 04:30 Target Cells Not Reportable 01/10/17 04:30 Tear Drop Cells Not Reportable 01/10/17 04:30 Ovalocytes Not Reportable 01/10/17 04:30 Helmet Cells Not Reportable 01/10/17 04:30 [place] Bodies Not Reportable 01/10/17 04:30 [place] Rings Not Reportable 01/10/17 04:30 Jessica Cells Not Reportable 01/10/17 04:30 Bite Cells Not Reportable 01/10/17 04:30 Crenated Cell Not Reportable 01/10/17 04:30 Elliptocytes Not Reportable 01/10/17 04:30 Acanthocytes (Spur) Not Reportable 01/10/17 04:30 Rouleaux Not Reportable 01/10/17 04:30 Hemoglobin C Crystals Not Reportable 01/10/17 04:30 Schistocytes Not Reportable 01/10/17 04:30 Malaria parasites Not Reportable 01/10/17 04:30 Kyle Bodies Not Reportable 01/10/17 04:30 Hem Pathologist Commnt No 01/10/17 04:30 PT 14.1 Sec. (12.2-14.9) 01/17/17 04:10 INR 1.04 (0.87-1.13) 01/17/17 04:10 APTT 36.6 Sec. (24.2-36.6) 01/17/17 04:10 POC ABG pH 7.442 (7.35-7.45) 01/31/17 18:55 ABG pH 7.420 pH Units (7.350-7.450) 01/17/17 04:35 POC ABG pCO2 32.8 (35-45) L 01/31/17 18:55 ABG pCO2 34.5 mm Hg 01/17/17 04:35 POC ABG pO2 82 (80-105) 01/31/17 18:55 ABG pO2 160.3 mm Hg (80.0-90.0) H 01/17/17 04:35 POC ABG HCO3 22.4 01/31/17 18:55 ABG HCO3 21.9 mmol/L (20.0-26.0) 01/17/17 04:35 POC ABG Total CO2 23 01/31/17 18:55 POC ABG O2 Sat 97 01/31/17 18:55 ABG O2 Saturation 99.0 % (95.0-99.0) 01/17/17 04:35 ABG O2 Content 11.1 (0.0-44) 01/17/17 04:35 POC ABG Base Excess -2 01/31/17 18:55 ABG Base Excess -2.3 mmol/L (-2.0-3.0) L 01/17/17 04:35 ABG Hemoglobin 7.9 gm/dl (14.0-18.0) L 01/17/17 04:35 ABG Carboxyhemoglobin 1.5 % (0.0-5.0) 01/17/17 04:35 ABG Methemoglobin 0.5 % (0.0-1.5) 01/17/17 04:35 VBG pH 7.284 (7.320-7.420) L 01/09/17 10:16 Oxyhemoglobin 97.1 % (95.0-99.0) 01/17/17 04:35 FiO2 25 % 01/31/17 18:55 Sodium 136 mmol/L (137-145) L 04/28/17 05:10 Potassium 4.5 mmol/L (3.6-5.0) 04/28/17 05:10 Chloride 95.2 mmol/L (98-107) L 04/28/17 05:10 Carbon Dioxide 27 mmol/L (22-30) 04/28/17 05:10 Anion Gap 18 mmol/L 04/28/17 05:10 BUN 42 mg/dL (9-20) H 04/28/17 05:10 Creatinine 0.9 mg/dL (0.8-1.5) 04/28/17 05:10 Estimated GFR > 60 ml/min 04/28/17 05:10 BUN/Creatinine Ratio 47 % 04/28/17 05:10 Glucose 63 mg/dL (75-100) L 04/28/17 05:10 POC Glucose 70 (70-105) 05/31/17 00:34 Lactic Acid 0.80 mmol/L (0.7-2.0) 01/30/17 11:49 Calcium 9.1 mg/dL (8.4-10.2) 04/28/17 05:10 Phosphorus 3.10 mg/dL (2.5-4.5) 03/29/17 04:32 Magnesium 1.90 mg/dL (1.7-2.3) 03/29/17 04:32 Total Bilirubin 0.50 mg/dL (0.1-1.2) 04/28/17 05:10 AST 45 units/L (5-40) H 04/28/17 05:10 ALT 42 units/L (7-56) 04/28/17 05:10 Alkaline Phosphatase 271 units/L (35-129) H 04/28/17 05:10 Ammonia 35.0 umol/L (25-60) 01/09/17 10:16 Total Creatine Kinase 135 units/L (55-170) 01/09/17 10:16 CK-MB (CK-2) 7.1 ng/mL (0.0-4.0) H 01/09/17 10:16 CK-MB (CK-2) Rel Index 5.2 (0-4) H 01/09/17 10:16 Troponin T < 0.010 ng/mL (0.00-0.029) 01/09/17 10:16 NT-Pro-B Natriuret Pep 602.9 pg/mL (0-900) 01/09/17 10:16 Total Protein 8.9 g/dL (6.3-8.2) H 04/28/17 05:10 Albumin 2.5 g/dL (3.9-5) L 04/28/17 05:10 Albumin/Globulin Ratio 0.4 % 04/28/17 05:10 TSH 52.800 mlU/mL (0.270-4.200) H 01/09/17 10:16 Free T4 0.78 ng/dL (0.76-1.46) 01/09/17 10:16 Total Cortisol 54.8 mcg/dL () 01/09/17 16:19 Urine Color Yellow (Yellow) 01/28/17 17:52 Urine Turbidity Clear (Clear) 01/28/17 17:52 Urine pH 6.0 (5.0-7.0) 01/28/17 17:52 Ur Specific [place] 1.016 (1.003-1.030) 01/28/17 17:52 Urine Protein 100 mg/dl mg/dL (Negative) 01/28/17 17:52 Urine Glucose (UA) >=500 mg/dL (Negative) 01/28/17 17:52 Urine Ketones Neg mg/dL (Negative) 01/28/17 17:52 Urine Blood Sm (Negative) 01/28/17 17:52 Urine Nitrite Neg (Negative) 01/28/17 17:52 Urine Bilirubin Neg (Negative) 01/28/17 17:52 Urine Urobilinogen < 2.0 mg/dL (<2.0) 01/28/17 17:52 Ur Leukocyte Esterase Lg (Negative) 01/28/17 17:52 Urine WBC (Auto) > 182.0 /HPF (0.0-6.0) H 01/28/17 17:52 Urine RBC (Auto) 113.0 /HPF (0.0-6.0) 01/28/17 17:52 Urine Bacteria (Auto) 2+ /HPF (Negative) 01/28/17 17:52 Urine WBC Clumps 3+ /HPF 01/28/17 17:52 Urine Mucus Few /HPF 01/14/17 14:07 Urine Yeast (Budding) 3+ /HPF 01/14/17 14:07 Salicylates < 0.3 mg/dL (2.8-20.0) L 01/09/17 10:16 Urine Opiates Screen Presumptive negative 01/09/17 10:23 Urine Methadone Screen Presumptive negative 01/09/17 10:23 Acetaminophen < 15.0 ug/mL (10.0-30.0) 01/09/17 10:16 Ur Barbiturates Screen Presumptive negative 01/09/17 10:23 Ur Phencyclidine Scrn Presumptive negative 01/09/17 10:23 Ur Amphetamines Screen Presumptive negative 01/09/17 10:23 U Benzodiazepines Scrn Presumptive negative 01/09/17 10:23 Urine Cocaine Screen Presumptive negative 01/09/17 10:23 U Marijuana (THC) Screen Presumptive negative 01/09/17 10:23 Drugs of Abuse Note Disclamer 01/09/17 10:23 Plasma/Serum Alcohol < 0.01 gm% (0-0.07) 01/09/17 10:16
--- NOTE | 2017-05-31 15:21 | Progress Note ---
Assessment and Plan Imp: 1. Hypoglycemia/hypothermia -> suspect due to too much insulin 2. Hypothyroidism; doubt myxedema coma with normal free T4 3. Acute respiratory failure, hypoxia 4. UTI/SIRS 5. Metabolic/anoxic encephalopathy Rec: 1. GI/DVT PPx/TFs 2. Reviewed chart; ethics note 01/18/17 recommended AND and "hospice"; further care felt to be futile and would only prolong potential suffering without affecting ultimate outcome 3. Comfort care, no escalation of care; would not check any further labs, CXRs, or cultures; would not work him up for infections in setting of fever, only treat w/ Tylenol for palliative purposes; would not place another IV either 4. Poor prognosis Unable to locate family. Subjective Date of service: 05/31/17 Principal diagnosis: Acute respiratory failure,encephalopathy Interval history: No events. On vent. Unresponsive. On PSV. Active Medications Acetaminophen/Hydrocodone Bitart ([place] 7.5/325) 1 each PO Q4H PRN PRN Reason: Pain, Moderate (4-6) Lipase/Protease/Amylase ([place] Dr 10,500 Unit) 1 each FEEDTUBE PRN PRN PRN Reason: For Clogged Feeding Tube Dextrose (D50w (25gm) Syringe) 25 ml IV PRN PRN PRN Reason: Hypoglycemia Famotidine (Pepcid) 20 mg PO BID [facility] Last Admin: 05/31/17 10:31 Dose: 20 mg Heparin Sodium (Porcine) (Heparin) 5,000 unit SUB-Q Q12HR [facility] Last Admin: 05/31/17 10:32 Dose: 5,000 unit Hydrophilic Ointment (Vaseline Lip Therapy) 1 applic TP Q2HR PRN PRN Reason: Dry Lips Last Admin: 05/16/17 00:26 Dose: 1 applic Insulin Detemir (Levemir) 5 units SUB-Q QAMDIAB [facility] Last Admin: 05/31/17 10:32 Dose: 5 units Insulin Human Regular (Novolin R) 0 units SUB-Q Q8HR [facility] PRN Reason: Protocol Last Admin: 05/31/17 08:14 Dose: Not Given Multi-Ingred Cream/Lotion/Oil/Oint (Artificial Tears Ophth Oint) 1 applic OU Q4HR PRN PRN Reason: Dry Eye(s) Simple Syrup (Simple Syrup) 15 ml FEEDTUBE PRN PRN PRN Reason: Hypoglycemia Simple Syrup (Simple Syrup) 30 ml FEEDTUBE PRN PRN PRN Reason: Hypoglycemia Last Admin: 05/28/17 15:41 Dose: 30 ml Sodium Bicarbonate (Sodium Bicarbonate) 325 mg FEEDTUBE PRN PRN PRN Reason: For Clogged Feeding Tube Objective Vital Signs - 12hr 05/31/17 05/31/17 05/31/17 04:00 05:50 06:00 Temperature 98.2 F Pulse Rate 83 83 Pulse Rate [ 85 Left] Respiratory 15 15 14 Rate Blood Pressure 104/68 104/68 104/68 O2 Sat by Pulse 99 99 100 Oximetry 05/31/17 05/31/17 05/31/17 08:00 09:00 10:00 Temperature 98.5 F Pulse Rate 80 88 81 Pulse Rate [ Left] Respiratory 15 24 13 Rate Blood Pressure 105/69 105/69 O2 Sat by Pulse 99 99 97 Oximetry 05/31/17 12:00 Temperature 99.5 F Pulse Rate 80 Pulse Rate [ Left] Respiratory 14 Rate Blood Pressure 105/69 O2 Sat by Pulse 97 Oximetry Constitutional: no acute distress, other (on vent) Eyes: non-icteric ENT: oropharynx moist, other (ETT in position) Neck: supple Effort: normal Ascultation: Bilateral: clear Cardiovascular: regular rate and rhythm (no mrg) Gastrointestinal: normoactive bowel sounds, soft, non-tender, non-distended Integumentary: normal Extremities: no cyanosis, no edema, pink and warm Neurologic: pupils equal and round, other (opens eyes spontaneously, but no meaningful responce to stimuli) Psychiatric: other (unable to obtain) CBC and BMP: 04/28/17 05:10 04/28/17 05:10 ABG, PT/INR, D-dimer: ABG POC ABG pH 7.442 (7.35-7.45) 01/31/17 18:55 ABG pH 7.420 pH Units (7.350-7.450) 01/17/17 04:35 POC ABG pCO2 32.8 (35-45) L 01/31/17 18:55 ABG pCO2 34.5 mm Hg 01/17/17 04:35 POC ABG pO2 82 (80-105) 01/31/17 18:55 ABG pO2 160.3 mm Hg (80.0-90.0) H 01/17/17 04:35 POC ABG HCO3 22.4 01/31/17 18:55 POC ABG Total CO2 23 01/31/17 18:55 POC ABG O2 Sat 97 01/31/17 18:55 ABG O2 Saturation 99.0 % (95.0-99.0) 01/17/17 04:35 PT/INR, D-dimer PT 14.1 Sec. (12.2-14.9) 01/17/17 04:10 INR 1.04 (0.87-1.13) 01/17/17 04:10 Abnormal lab findings: Abnormal Labs 01/09/17 01/09/17 01/09/17 10:16 10:16 10:16 WBC RBC Hgb 9.7 L Hct 28.4 L MCV 76 L MCH 26 L RDW 17.2 H Plt Count 448 H Lymph % (Auto) [place] % (Auto) Eos % (Auto) [place] # Seg Neutrophils % 79.5 H Seg Neuts % (Manual) Lymphocytes % (Manual) Seg Neutrophils # Seg Neutrophils # Man Lymphocytes # (Manual) APTT 39.6 H POC ABG pH ABG pH POC ABG pCO2 POC ABG pO2 ABG pO2 ABG HCO3 ABG Base Excess ABG Hemoglobin VBG pH Oxyhemoglobin Sodium 132 L Potassium Chloride 96.7 L Carbon Dioxide 21 L BUN 34 H Creatinine Glucose POC Glucose Lactic Acid Calcium 8.3 L AST ALT Alkaline Phosphatase 151 H CK-MB (CK-2) 7.1 H CK-MB (CK-2) Rel Index 5.2 H Total Protein Albumin 3.3 L TSH Urine WBC (Auto) Salicylates 01/09/17 01/09/17 01/09/17 10:16 10:16 10:16 WBC RBC Hgb Hct MCV MCH RDW Plt Count Lymph % (Auto) [place] % (Auto) Eos % (Auto) [place] # Seg Neutrophils % Seg Neuts % (Manual) Lymphocytes % (Manual) Seg Neutrophils # Seg Neutrophils # Man Lymphocytes # (Manual) APTT POC ABG pH ABG pH POC ABG pCO2 POC ABG pO2 ABG pO2 ABG HCO3 ABG Base Excess ABG Hemoglobin VBG pH 7.284 L Oxyhemoglobin Sodium Potassium Chloride Carbon Dioxide BUN Creatinine Glucose POC Glucose Lactic Acid Calcium AST ALT Alkaline Phosphatase CK-MB (CK-2) CK-MB (CK-2) Rel Index Total Protein Albumin TSH 52.800 H Urine WBC (Auto) Salicylates < 0.3 L 01/09/17 01/09/17 01/09/17 10:23 11:14 12:49 WBC RBC Hgb Hct MCV MCH RDW Plt Count Lymph % (Auto) [place] % (Auto) Eos % (Auto) [place] # Seg Neutrophils % Seg Neuts % (Manual) Lymphocytes % (Manual) Seg Neutrophils # Seg Neutrophils # Man Lymphocytes # (Manual) APTT POC ABG pH ABG pH POC ABG pCO2 POC ABG pO2 643 H ABG pO2 ABG HCO3 ABG Base Excess ABG Hemoglobin VBG pH Oxyhemoglobin Sodium Potassium Chloride Carbon Dioxide BUN Creatinine Glucose POC Glucose < 40 L Lactic Acid Calcium AST ALT Alkaline Phosphatase CK-MB (CK-2) CK-MB (CK-2) Rel Index Total Protein Albumin TSH Urine WBC (Auto) 61.0 H Salicylates 01/09/17 01/09/17 01/09/17 13:13 14:21 15:09 WBC RBC Hgb Hct MCV MCH RDW Plt Count Lymph % (Auto) [place] % (Auto) Eos % (Auto) [place] # Seg Neutrophils % Seg Neuts % (Manual) Lymphocytes % (Manual) Seg Neutrophils # Seg Neutrophils # Man Lymphocytes # (Manual) APTT POC ABG pH ABG pH POC ABG pCO2 POC ABG pO2 ABG pO2 ABG HCO3 ABG Base Excess ABG Hemoglobin VBG pH Oxyhemoglobin Sodium Potassium Chloride Carbon Dioxide BUN Creatinine Glucose POC Glucose 128 H 65 L 120 H Lactic Acid Calcium AST ALT Alkaline Phosphatase CK-MB (CK-2) CK-MB (CK-2) Rel Index Total Protein Albumin TSH Urine WBC (Auto) Salicylates 01/09/17 01/09/17 01/10/17 16:28 17:14 04:30 WBC 24.1 H RBC 3.38 L Hgb 8.5 L Hct 26.0 L MCV 77 L MCH 25 L RDW 17.9 H Plt Count 474 H Lymph % (Auto) [place] % (Auto) Eos % (Auto) [place] # Seg Neutrophils % Seg Neuts % (Manual) 88.0 H Lymphocytes % (Manual) 4.0 L Seg Neutrophils # Seg Neutrophils # Man 21.2 H Lymphocytes # (Manual) 1.0 L APTT POC ABG pH ABG pH POC ABG pCO2 POC ABG pO2 ABG pO2 ABG HCO3 ABG Base Excess ABG Hemoglobin VBG pH Oxyhemoglobin Sodium Potassium Chloride Carbon Dioxide BUN Creatinine Glucose POC Glucose 44 L 112 H Lactic Acid Calcium AST ALT Alkaline Phosphatase CK-MB (CK-2) CK-MB (CK-2) Rel Index Total Protein Albumin TSH Urine WBC (Auto) Salicylates 01/10/17 01/10/17 01/10/17 04:30 05:41 05:45 WBC RBC Hgb Hct MCV MCH RDW Plt Count Lymph % (Auto) [place] % (Auto) Eos % (Auto) [place] # Seg Neutrophils % Seg Neuts % (Manual) Lymphocytes % (Manual) Seg Neutrophils # Seg Neutrophils # Man Lymphocytes # (Manual) APTT POC ABG pH ABG pH POC ABG pCO2 26.6 L POC ABG pO2 207 H ABG pO2 ABG HCO3 ABG Base Excess ABG Hemoglobin VBG pH Oxyhemoglobin Sodium Potassium Chloride Carbon Dioxide 17 L BUN 27 H Creatinine Glucose POC Glucose 68 L Lactic Acid Calcium 7.5 L AST ALT Alkaline Phosphatase CK-MB (CK-2) CK-MB (CK-2) Rel Index Total Protein Albumin TSH Urine WBC (Auto) Salicylates 01/10/17 01/10/17 01/10/17 07:47 10:50 13:41 WBC RBC Hgb Hct MCV MCH RDW Plt Count Lymph % (Auto) [place] % (Auto) Eos % (Auto) [place] # Seg Neutrophils % Seg Neuts % (Manual) Lymphocytes % (Manual) Seg Neutrophils # Seg Neutrophils # Man Lymphocytes # (Manual) APTT POC ABG pH ABG pH POC ABG pCO2 POC ABG pO2 ABG pO2 ABG HCO3 ABG Base Excess ABG Hemoglobin VBG pH Oxyhemoglobin Sodium Potassium Chloride Carbon Dioxide BUN Creatinine Glucose POC Glucose 148 H 165 H 114 H Lactic Acid Calcium AST ALT Alkaline Phosphatase CK-MB (CK-2) CK-MB (CK-2) Rel Index Total Protein Albumin TSH Urine WBC (Auto) Salicylates 01/10/17 01/10/17 01/10/17 20:20 21:39 23:24 WBC RBC Hgb Hct MCV MCH RDW Plt Count Lymph % (Auto) [place] % (Auto) Eos % (Auto) [place] # Seg Neutrophils % Seg Neuts % (Manual) Lymphocytes % (Manual) Seg Neutrophils # Seg Neutrophils # Man Lymphocytes # (Manual) APTT POC ABG pH ABG pH POC ABG pCO2 POC ABG pO2 ABG pO2 ABG HCO3 ABG Base Excess ABG Hemoglobin VBG pH Oxyhemoglobin Sodium Potassium Chloride Carbon Dioxide BUN Creatinine Glucose POC Glucose 150 H 175 H 155 H Lactic Acid Calcium AST ALT Alkaline Phosphatase CK-MB (CK-2) CK-MB (CK-2) Rel Index Total Protein Albumin TSH Urine WBC (Auto) Salicylates 01/11/17 01/11/17 01/11/17 00:19 04:06 05:20 WBC 15.2 H RBC 3.40 L Hgb 8.9 L Hct 26.3 L MCV 78 L MCH 26 L RDW 18.6 H Plt Count 462 H Lymph % (Auto) 13.2 L [place] % (Auto) Eos % (Auto) [place] # Seg Neutrophils % 80.8 H Seg Neuts % (Manual) Lymphocytes % (Manual) Seg Neutrophils # 12.3 H Seg Neutrophils # Man Lymphocytes # (Manual) APTT POC ABG pH 7.463 H ABG pH POC ABG pCO2 26.2 L POC ABG pO2 185 H ABG pO2 ABG HCO3 ABG Base Excess ABG Hemoglobin VBG pH Oxyhemoglobin Sodium Potassium Chloride Carbon Dioxide BUN Creatinine Glucose POC Glucose 163 H Lactic Acid Calcium AST ALT Alkaline Phosphatase CK-MB (CK-2) CK-MB (CK-2) Rel Index Total Protein Albumin TSH Urine WBC (Auto) Salicylates 01/11/17 01/11/17 01/11/17 05:20 06:21 07:57 WBC RBC Hgb Hct MCV MCH RDW Plt Count Lymph % (Auto) [place] % (Auto) Eos % (Auto) [place] # Seg Neutrophils % Seg Neuts % (Manual) Lymphocytes % (Manual) Seg Neutrophils # Seg Neutrophils # Man Lymphocytes # (Manual) APTT POC ABG pH ABG pH POC ABG pCO2 POC ABG pO2 ABG pO2 ABG HCO3 ABG Base Excess ABG Hemoglobin VBG pH Oxyhemoglobin Sodium Potassium 3.4 L Chloride 111.5 H Carbon Dioxide 17 L BUN Creatinine Glucose 147 H POC Glucose 139 H 188 H Lactic Acid Calcium 8.0 L AST ALT Alkaline Phosphatase CK-MB (CK-2) CK-MB (CK-2) Rel Index Total Protein Albumin TSH Urine WBC (Auto) Salicylates 01/11/17 01/11/17 01/11/17 11:46 16:50 23:15 WBC RBC Hgb Hct MCV MCH RDW Plt Count Lymph % (Auto) [place] % (Auto) Eos % (Auto) [place] # Seg Neutrophils % Seg Neuts % (Manual) Lymphocytes % (Manual) Seg Neutrophils # Seg Neutrophils # Man Lymphocytes # (Manual) APTT POC ABG pH ABG pH POC ABG pCO2 POC ABG pO2 ABG pO2 ABG HCO3 ABG Base Excess ABG Hemoglobin VBG pH Oxyhemoglobin Sodium Potassium Chloride Carbon Dioxide BUN Creatinine Glucose POC Glucose 199 H 235 H 155 H Lactic Acid Calcium AST ALT Alkaline Phosphatase CK-MB (CK-2) CK-MB (CK-2) Rel Index Total Protein Albumin TSH Urine WBC (Auto) Salicylates 01/12/17 01/12/17 01/12/17 05:02 06:56 14:50 WBC RBC Hgb Hct MCV MCH RDW Plt Count Lymph % (Auto) [place] % (Auto) Eos % (Auto) [place] # Seg Neutrophils % Seg Neuts % (Manual) Lymphocytes % (Manual) Seg Neutrophils # Seg Neutrophils # Man Lymphocytes # (Manual) APTT POC ABG pH ABG pH POC ABG pCO2 28.0 L POC ABG pO2 178 H ABG pO2 ABG HCO3 ABG Base Excess ABG Hemoglobin VBG pH Oxyhemoglobin Sodium Potassium Chloride Carbon Dioxide BUN Creatinine Glucose POC Glucose 119 H 164 H Lactic Acid Calcium AST ALT Alkaline Phosphatase CK-MB (CK-2) CK-MB (CK-2) Rel Index Total Protein Albumin TSH Urine WBC (Auto) Salicylates 01/13/17 01/13/17 01/13/17 03:37 03:37 04:26 WBC RBC 3.61 L Hgb 9.3 L Hct 28.0 L MCV 78 L MCH 26 L RDW 18.2 H Plt Count Lymph % (Auto) [place] % (Auto) Eos % (Auto) [place] # Seg Neutrophils % Seg Neuts % (Manual) Lymphocytes % (Manual) Seg Neutrophils # Seg Neutrophils # Man Lymphocytes # (Manual) APTT POC ABG pH 7.485 H ABG pH POC ABG pCO2 25.4 L POC ABG pO2 73 L ABG pO2 ABG HCO3 ABG Base Excess ABG Hemoglobin VBG pH Oxyhemoglobin Sodium Potassium Chloride 112.4 H Carbon Dioxide 19 L BUN Creatinine Glucose 118 H POC Glucose Lactic Acid Calcium 8.0 L AST ALT Alkaline Phosphatase CK-MB (CK-2) CK-MB (CK-2) Rel Index Total Protein Albumin TSH Urine WBC (Auto) Salicylates 01/13/17 01/13/17 01/13/17 06:15 11:50 17:31 WBC RBC Hgb Hct MCV MCH RDW Plt Count Lymph % (Auto) [place] % (Auto) Eos % (Auto) [place] # Seg Neutrophils % Seg Neuts % (Manual) Lymphocytes % (Manual) Seg Neutrophils # Seg Neutrophils # Man Lymphocytes # (Manual) APTT POC ABG pH ABG pH POC ABG pCO2 POC ABG pO2 ABG pO2 ABG HCO3 ABG Base Excess ABG Hemoglobin VBG pH Oxyhemoglobin Sodium Potassium Chloride Carbon Dioxide BUN Creatinine Glucose POC Glucose 116 H 171 H 203 H Lactic Acid Calcium AST ALT Alkaline Phosphatase CK-MB (CK-2) CK-MB (CK-2) Rel Index Total Protein Albumin TSH Urine WBC (Auto) Salicylates 01/14/17 01/14/17 01/14/17 00:02 04:50 04:50 WBC RBC 3.32 L Hgb 8.5 L Hct 26.1 L MCV 79 L MCH 26 L RDW 18.2 H Plt Count Lymph % (Auto) [place] % (Auto) 9.0 H Eos % (Auto) [place] # Seg Neutrophils % Seg Neuts % (Manual) Lymphocytes % (Manual) Seg Neutrophils # Seg Neutrophils # Man Lymphocytes # (Manual) APTT POC ABG pH ABG pH POC ABG pCO2 POC ABG pO2 ABG pO2 ABG HCO3 ABG Base Excess ABG Hemoglobin VBG pH Oxyhemoglobin Sodium Potassium Chloride 112.5 H Carbon Dioxide BUN Creatinine Glucose 149 H POC Glucose 157 H Lactic Acid Calcium 8.1 L AST ALT Alkaline Phosphatase CK-MB (CK-2) CK-MB (CK-2) Rel Index Total Protein Albumin TSH Urine WBC (Auto) Salicylates 01/14/17 01/14/17 01/14/17 05:10 11:27 14:07 WBC RBC Hgb Hct MCV MCH RDW Plt Count Lymph % (Auto) [place] % (Auto) Eos % (Auto) [place] # Seg Neutrophils % Seg Neuts % (Manual) Lymphocytes % (Manual) Seg Neutrophils # Seg Neutrophils # Man Lymphocytes # (Manual) APTT POC ABG pH ABG pH POC ABG pCO2 POC ABG pO2 ABG pO2 ABG HCO3 ABG Base Excess ABG Hemoglobin VBG pH Oxyhemoglobin Sodium Potassium Chloride Carbon Dioxide BUN Creatinine Glucose POC Glucose 176 H 147 H Lactic Acid Calcium AST ALT Alkaline Phosphatase CK-MB (CK-2) CK-MB (CK-2) Rel Index Total Protein Albumin TSH Urine WBC (Auto) 53.0 H Salicylates 01/14/17 01/15/17 01/15/17 16:52 00:04 05:26 WBC RBC Hgb Hct MCV MCH RDW Plt Count Lymph % (Auto) [place] % (Auto) Eos % (Auto) [place] # Seg Neutrophils % Seg Neuts % (Manual) Lymphocytes % (Manual) Seg Neutrophils # Seg Neutrophils # Man Lymphocytes # (Manual) APTT POC ABG pH ABG pH POC ABG pCO2 POC ABG pO2 ABG pO2 ABG HCO3 ABG Base Excess ABG Hemoglobin VBG pH Oxyhemoglobin Sodium Potassium Chloride Carbon Dioxide BUN Creatinine Glucose POC Glucose 131 H 193 H 215 H Lactic Acid Calcium AST ALT Alkaline Phosphatase CK-MB (CK-2) CK-MB (CK-2) Rel Index Total Protein Albumin TSH Urine WBC (Auto) Salicylates 01/15/17 01/15/17 01/15/17 11:49 17:47 21:33 WBC RBC Hgb Hct MCV MCH RDW Plt Count Lymph % (Auto) [place] % (Auto) Eos % (Auto) [place] # Seg Neutrophils % Seg Neuts % (Manual) Lymphocytes % (Manual) Seg Neutrophils # Seg Neutrophils # Man Lymphocytes # (Manual) APTT POC ABG pH ABG pH POC ABG pCO2 POC ABG pO2 ABG pO2 ABG HCO3 ABG Base Excess ABG Hemoglobin VBG pH Oxyhemoglobin Sodium Potassium Chloride Carbon Dioxide BUN Creatinine Glucose POC Glucose 121 H 211 H 275 H Lactic Acid Calcium AST ALT Alkaline Phosphatase CK-MB (CK-2) CK-MB (CK-2) Rel Index Total Protein Albumin TSH Urine WBC (Auto) Salicylates 01/16/17 01/16/17 01/16/17 04:30 05:28 13:45 WBC RBC Hgb Hct MCV MCH RDW Plt Count Lymph % (Auto) [place] % (Auto) Eos % (Auto) [place] # Seg Neutrophils % Seg Neuts % (Manual) Lymphocytes % (Manual) Seg Neutrophils # Seg Neutrophils # Man Lymphocytes # (Manual) APTT POC ABG pH ABG pH 7.457 H POC ABG pCO2 POC ABG pO2 ABG pO2 55.1 L ABG HCO3 19.4 L ABG Base Excess -4.0 L ABG Hemoglobin 6.8 L VBG pH Oxyhemoglobin 94.9 L Sodium Potassium Chloride Carbon Dioxide BUN Creatinine Glucose POC Glucose 271 H 236 H Lactic Acid Calcium AST ALT Alkaline Phosphatase CK-MB (CK-2) CK-MB (CK-2) Rel Index Total Protein Albumin TSH Urine WBC (Auto) Salicylates 01/16/17 01/17/17 01/17/17 21:39 04:10 04:10 WBC 4.4 L RBC 2.98 L Hgb 7.7 L Hct 23.3 L MCV 78 L MCH 26 L RDW 18.1 H Plt Count Lymph % (Auto) [place] % (Auto) Eos % (Auto) [place] # Seg Neutrophils % Seg Neuts % (Manual) Lymphocytes % (Manual) Seg Neutrophils # Seg Neutrophils # Man Lymphocytes # (Manual) APTT POC ABG pH ABG pH POC ABG pCO2 POC ABG pO2 ABG pO2 ABG HCO3 ABG Base Excess ABG Hemoglobin VBG pH Oxyhemoglobin Sodium Potassium 3.3 L Chloride 108.7 H Carbon Dioxide 20 L BUN 8 L Creatinine Glucose 202 H POC Glucose 258 H Lactic Acid Calcium 7.6 L AST ALT Alkaline Phosphatase CK-MB (CK-2) CK-MB (CK-2) Rel Index Total Protein Albumin TSH Urine WBC (Auto) Salicylates 01/17/17 01/17/17 01/17/17 04:35 12:23 16:01 WBC RBC Hgb Hct MCV MCH RDW Plt Count Lymph % (Auto) [place] % (Auto) Eos % (Auto) [place] # Seg Neutrophils % Seg Neuts % (Manual) Lymphocytes % (Manual) Seg Neutrophils # Seg Neutrophils # Man Lymphocytes # (Manual) APTT POC ABG pH ABG pH POC ABG pCO2 POC ABG pO2 ABG pO2 160.3 H ABG HCO3 ABG Base Excess -2.3 L ABG Hemoglobin 7.9 L VBG pH Oxyhemoglobin Sodium Potassium Chloride Carbon Dioxide BUN Creatinine Glucose POC Glucose 321 H 239 H Lactic Acid Calcium AST ALT Alkaline Phosphatase CK-MB (CK-2) CK-MB (CK-2) Rel Index Total Protein Albumin TSH Urine WBC (Auto) Salicylates 01/18/17 01/18/17 01/18/17 05:07 12:09 17:54 WBC RBC Hgb Hct MCV MCH RDW Plt Count Lymph % (Auto) [place] % (Auto) Eos % (Auto) [place] # Seg Neutrophils % Seg Neuts % (Manual) Lymphocytes % (Manual) Seg Neutrophils # Seg Neutrophils # Man Lymphocytes # (Manual) APTT POC ABG pH ABG pH POC ABG pCO2 POC ABG pO2 ABG pO2 ABG HCO3 ABG Base Excess ABG Hemoglobin VBG pH Oxyhemoglobin Sodium Potassium Chloride Carbon Dioxide BUN Creatinine Glucose POC Glucose 155 H 203 H 132 H Lactic Acid Calcium AST ALT Alkaline Phosphatase CK-MB (CK-2) CK-MB (CK-2) Rel Index Total Protein Albumin TSH Urine WBC (Auto) Salicylates 01/18/17 01/19/17 01/19/17 23:43 04:28 12:11 WBC RBC Hgb Hct MCV MCH RDW Plt Count Lymph % (Auto) [place] % (Auto) Eos % (Auto) [place] # Seg Neutrophils % Seg Neuts % (Manual) Lymphocytes % (Manual) Seg Neutrophils # Seg Neutrophils # Man Lymphocytes # (Manual) APTT POC ABG pH ABG pH POC ABG pCO2 POC ABG pO2 ABG pO2 ABG HCO3 ABG Base Excess ABG Hemoglobin VBG pH Oxyhemoglobin Sodium Potassium Chloride Carbon Dioxide BUN Creatinine Glucose POC Glucose 125 H 182 H 153 H Lactic Acid Calcium AST ALT Alkaline Phosphatase CK-MB (CK-2) CK-MB (CK-2) Rel Index Total Protein Albumin TSH Urine WBC (Auto) Salicylates 01/19/17 01/20/17 01/20/17 17:23 00:12 05:44 WBC RBC Hgb Hct MCV MCH RDW Plt Count Lymph % (Auto) [place] % (Auto) Eos % (Auto) [place] # Seg Neutrophils % Seg Neuts % (Manual) Lymphocytes % (Manual) Seg Neutrophils # Seg Neutrophils # Man Lymphocytes # (Manual) APTT POC ABG pH ABG pH POC ABG pCO2 POC ABG pO2 ABG pO2 ABG HCO3 ABG Base Excess ABG Hemoglobin VBG pH Oxyhemoglobin Sodium Potassium Chloride Carbon Dioxide BUN Creatinine Glucose POC Glucose 66 L 139 H 176 H Lactic Acid Calcium AST ALT Alkaline Phosphatase CK-MB (CK-2) CK-MB (CK-2) Rel Index Total Protein Albumin TSH Urine WBC (Auto) Salicylates 01/20/17 01/20/1701/20/17 11:48 17:42 23:43 WBC RBC Hgb Hct MCV MCH RDW Plt Count Lymph % (Auto) [place] % (Auto) Eos % (Auto) [place] # Seg Neutrophils % Seg Neuts % (Manual) Lymphocytes % (Manual) Seg Neutrophils # Seg Neutrophils # Man Lymphocytes # (Manual) APTT POC ABG pH ABG pH POC ABG pCO2 POC ABG pO2 ABG pO2 ABG HCO3 ABG Base Excess ABG Hemoglobin VBG pH Oxyhemoglobin Sodium Potassium Chloride Carbon Dioxide BUN Creatinine Glucose POC Glucose 218 H 132 H 178 H Lactic Acid Calcium AST ALT Alkaline Phosphatase CK-MB (CK-2) CK-MB (CK-2) Rel Index Total Protein Albumin TSH Urine WBC (Auto) Salicylates 01/21/17 01/21/17 01/21/17 05:34 11:17 23:37 WBC RBC Hgb Hct MCV MCH RDW Plt Count Lymph % (Auto) [place] % (Auto) Eos % (Auto) [place] # Seg Neutrophils % Seg Neuts % (Manual) Lymphocytes % (Manual) Seg Neutrophils # Seg Neutrophils # Man Lymphocytes # (Manual) APTT POC ABG pH ABG pH POC ABG pCO2 POC ABG pO2 ABG pO2 ABG HCO3 ABG Base Excess ABG Hemoglobin VBG pH Oxyhemoglobin Sodium Potassium Chloride Carbon Dioxide BUN Creatinine Glucose POC Glucose 106 H 213 H 140 H Lactic Acid Calcium AST ALT Alkaline Phosphatase CK-MB (CK-2) CK-MB (CK-2) Rel Index Total Protein Albumin TSH Urine WBC (Auto) Salicylates 01/22/17 01/22/17 01/22/17 04:00 04:00 04:58 WBC RBC 3.26 L Hgb 8.3 L Hct 25.5 L MCV 78 L MCH 25 L RDW 17.9 H Plt Count Lymph % (Auto) [place] % (Auto) 7.9 H Eos % (Auto) 6.2 H [place] # Seg Neutrophils % Seg Neuts % (Manual) Lymphocytes % (Manual) Seg Neutrophils # Seg Neutrophils # Man Lymphocytes # (Manual) APTT POC ABG pH ABG pH POC ABG pCO2 POC ABG pO2 ABG pO2 ABG HCO3 ABG Base Excess ABG Hemoglobin VBG pH Oxyhemoglobin Sodium Potassium Chloride 95.5 L Carbon Dioxide 31 H D BUN Creatinine Glucose 134 H POC Glucose 146 H Lactic Acid Calcium AST 44 H ALT Alkaline Phosphatase 379 H CK-MB (CK-2) CK-MB (CK-2) Rel Index Total Protein Albumin 2.7 L TSH Urine WBC (Auto) Salicylates 01/22/17 01/22/17 01/22/17 12:12 18:12 23:39 WBC RBC Hgb Hct MCV MCH RDW Plt Count Lymph % (Auto) [place] % (Auto) Eos % (Auto) [place] # Seg Neutrophils % Seg Neuts % (Manual) Lymphocytes % (Manual) Seg Neutrophils # Seg Neutrophils # Man Lymphocytes # (Manual) APTT POC ABG pH ABG pH POC ABG pCO2 POC ABG pO2 ABG pO2 ABG HCO3 ABG Base Excess ABG Hemoglobin VBG pH Oxyhemoglobin Sodium Potassium Chloride Carbon Dioxide BUN Creatinine Glucose POC Glucose 255 H 182 H 134 H Lactic Acid Calcium AST ALT Alkaline Phosphatase CK-MB (CK-2) CK-MB (CK-2) Rel Index Total Protein Albumin TSH Urine WBC (Auto) Salicylates 01/23/17 01/23/17 01/23/17 04:43 12:12 17:36 WBC RBC Hgb Hct MCV MCH RDW Plt Count Lymph % (Auto) [place] % (Auto) Eos % (Auto) [place] # Seg Neutrophils % Seg Neuts % (Manual) Lymphocytes % (Manual) Seg Neutrophils # Seg Neutrophils # Man Lymphocytes # (Manual) APTT POC ABG pH ABG pH POC ABG pCO2 POC ABG pO2 ABG pO2 ABG HCO3 ABG Base Excess ABG Hemoglobin VBG pH Oxyhemoglobin Sodium Potassium Chloride Carbon Dioxide BUN Creatinine Glucose POC Glucose 218 H 128 H 156 H Lactic Acid Calcium AST ALT Alkaline Phosphatase CK-MB (CK-2) CK-MB (CK-2) Rel Index Total Protein Albumin TSH Urine WBC (Auto) Salicylates 01/24/17 01/24/17 01/24/17 00:08 05:16 11:40 WBC RBC Hgb Hct MCV MCH RDW Plt Count Lymph % (Auto) [place] % (Auto) Eos % (Auto) [place] # Seg Neutrophils % Seg Neuts % (Manual) Lymphocytes % (Manual) Seg Neutrophils # Seg Neutrophils # Man Lymphocytes # (Manual) APTT POC ABG pH ABG pH POC ABG pCO2 POC ABG pO2 ABG pO2 ABG HCO3 ABG Base Excess ABG Hemoglobin VBG pH Oxyhemoglobin Sodium Potassium Chloride Carbon Dioxide BUN Creatinine Glucose POC Glucose 129 H 169 H 187 H Lactic Acid Calcium AST ALT Alkaline Phosphatase CK-MB (CK-2) CK-MB (CK-2) Rel Index Total Protein Albumin TSH Urine WBC (Auto) Salicylates 01/24/17 01/24/17 01/25/17 17:43 23:23 04:56 WBC RBC Hgb Hct MCV MCH RDW Plt Count Lymph % (Auto) [place] % (Auto) Eos % (Auto) [place] # Seg Neutrophils % Seg Neuts % (Manual) Lymphocytes % (Manual) Seg Neutrophils # Seg Neutrophils # Man Lymphocytes # (Manual) APTT POC ABG pH ABG pH POC ABG pCO2 POC ABG pO2 ABG pO2 ABG HCO3 ABG Base Excess ABG Hemoglobin VBG pH Oxyhemoglobin Sodium Potassium Chloride Carbon Dioxide BUN Creatinine Glucose POC Glucose 215 H 222 H 210 H Lactic Acid Calcium AST ALT Alkaline Phosphatase CK-MB (CK-2) CK-MB (CK-2) Rel Index Total Protein Albumin TSH Urine WBC (Auto) Salicylates 01/25/17 01/25/17 01/26/17 11:52 17:37 00:02 WBC RBC Hgb Hct MCV MCH RDW Plt Count Lymph % (Auto) [place] % (Auto) Eos % (Auto) [place] # Seg Neutrophils % Seg Neuts % (Manual) Lymphocytes % (Manual) Seg Neutrophils # Seg Neutrophils # Man Lymphocytes # (Manual) APTT POC ABG pH ABG pH POC ABG pCO2 POC ABG pO2 ABG pO2 ABG HCO3 ABG Base Excess ABG Hemoglobin VBG pH Oxyhemoglobin Sodium Potassium Chloride Carbon Dioxide BUN Creatinine Glucose POC Glucose 284 H 218 H 192 H Lactic Acid Calcium AST ALT Alkaline Phosphatase CK-MB (CK-2) CK-MB (CK-2) Rel Index Total Protein Albumin TSH Urine WBC (Auto) Salicylates 01/26/17 01/26/17 01/26/17 05:33 12:17 17:50 WBC RBC Hgb Hct MCV MCH RDW Plt Count Lymph % (Auto) [place] % (Auto) Eos % (Auto) [place] # Seg Neutrophils % Seg Neuts % (Manual) Lymphocytes % (Manual) Seg Neutrophils # Seg Neutrophils # Man Lymphocytes # (Manual) APTT POC ABG pH ABG pH POC ABG pCO2 POC ABG pO2 ABG pO2 ABG HCO3 ABG Base Excess ABG Hemoglobin VBG pH Oxyhemoglobin Sodium Potassium Chloride Carbon Dioxide BUN Creatinine Glucose POC Glucose 199 H 227 H 229 H Lactic Acid Calcium AST ALT Alkaline Phosphatase CK-MB (CK-2) CK-MB (CK-2) Rel Index Total Protein Albumin TSH Urine WBC (Auto) Salicylates 01/26/17 01/27/17 01/27/17 23:57 05:31 11:42 WBC RBC Hgb Hct MCV MCH RDW Plt Count Lymph % (Auto) [place] % (Auto) Eos % (Auto) [place] # Seg Neutrophils % Seg Neuts % (Manual) Lymphocytes % (Manual) Seg Neutrophils # Seg Neutrophils # Man Lymphocytes # (Manual) APTT POC ABG pH ABG pH POC ABG pCO2 POC ABG pO2 ABG pO2 ABG HCO3 ABG Base Excess ABG Hemoglobin VBG pH Oxyhemoglobin Sodium Potassium Chloride Carbon Dioxide BUN Creatinine Glucose POC Glucose 186 H 285 H 260 H Lactic Acid Calcium AST ALT Alkaline Phosphatase CK-MB (CK-2) CK-MB (CK-2) Rel Index Total Protein Albumin TSH Urine WBC (Auto) Salicylates 01/27/17 01/27/17 01/27/17 17:47 23:58 Unknown WBC 12.1 H RBC 3.28 L Hgb 8.5 L Hct 25.5 L MCV 78 L MCH 26 L RDW 16.8 H Plt Count 601 H Lymph % (Auto) [place] % (Auto) Eos % (Auto) [place] # Seg Neutrophils % Seg Neuts % (Manual) Lymphocytes % (Manual) Seg Neutrophils # Seg Neutrophils # Man Lymphocytes # (Manual) APTT POC ABG pH ABG pH POC ABG pCO2 POC ABG pO2 ABG pO2 ABG HCO3 ABG Base Excess ABG Hemoglobin VBG pH Oxyhemoglobin Sodium Potassium Chloride Carbon Dioxide BUN Creatinine Glucose POC Glucose 329 H 225 H Lactic Acid Calcium AST ALT Alkaline Phosphatase CK-MB (CK-2) CK-MB (CK-2) Rel Index Total Protein Albumin TSH Urine WBC (Auto) Salicylates 01/27/17 01/28/17 01/28/17 Unknown 03:44 03:44 WBC RBC 3.14 L Hgb 8.2 L Hct 24.1 L MCV 77 L MCH 26 L RDW 16.9 H Plt Count 567 H Lymph % (Auto) [place] % (Auto) Eos % (Auto) [place] # Seg Neutrophils % Seg Neuts % (Manual) Lymphocytes % (Manual) Seg Neutrophils # Seg Neutrophils # Man Lymphocytes # (Manual) APTT POC ABG pH ABG pH POC ABG pCO2 POC ABG pO2 ABG pO2 ABG HCO3 ABG Base Excess ABG Hemoglobin VBG pH Oxyhemoglobin Sodium 128 L Potassium 5.4 H Chloride 87.5 L Carbon Dioxide BUN 44 H 42 H Creatinine Glucose 250 H 128 H POC Glucose Lactic Acid Calcium AST ALT Alkaline Phosphatase CK-MB (CK-2) CK-MB (CK-2) Rel Index Total Protein Albumin TSH Urine WBC (Auto) Salicylates 01/28/17 01/28/17 01/28/17 11:43 16:47 17:52 WBC RBC Hgb Hct MCV MCH RDW Plt Count Lymph % (Auto) [place] % (Auto) Eos % (Auto) [place] # Seg Neutrophils % Seg Neuts % (Manual) Lymphocytes % (Manual) Seg Neutrophils # Seg Neutrophils # Man Lymphocytes # (Manual) APTT POC ABG pH ABG pH POC ABG pCO2 POC ABG pO2 ABG pO2 ABG HCO3 ABG Base Excess ABG Hemoglobin VBG pH Oxyhemoglobin Sodium Potassium Chloride Carbon Dioxide BUN Creatinine Glucose POC Glucose 351 H 249 H Lactic Acid Calcium AST ALT Alkaline Phosphatase CK-MB (CK-2) CK-MB (CK-2) Rel Index Total Protein Albumin TSH Urine WBC (Auto) > 182.0 H Salicylates 01/29/17 01/29/17 01/29/17 05:25 05:25 09:32 WBC 13.6 H RBC 3.25 L Hgb 8.3 L Hct 25.1 L MCV 77 L MCH 26 L RDW 16.8 H Plt Count 514 H Lymph % (Auto) [place] % (Auto) Eos % (Auto) [place] # Seg Neutrophils % Seg Neuts % (Manual) Lymphocytes % (Manual) Seg Neutrophils # Seg Neutrophils # Man Lymphocytes # (Manual) APTT POC ABG pH ABG pH POC ABG pCO2 POC ABG pO2 ABG pO2 ABG HCO3 ABG Base Excess ABG Hemoglobin VBG pH Oxyhemoglobin Sodium Potassium Chloride 97.8 L Carbon Dioxide BUN 34 H Creatinine Glucose 222 H POC Glucose Lactic Acid 2.50 H* Calcium AST ALT Alkaline Phosphatase CK-MB (CK-2) CK-MB (CK-2) Rel Index Total Protein Albumin TSH Urine WBC (Auto) Salicylates 01/29/17 01/29/17 01/29/17 11:56 18:11 23:55 WBC RBC Hgb Hct MCV MCH RDW Plt Count Lymph % (Auto) [place] % (Auto) Eos % (Auto) [place] # Seg Neutrophils % Seg Neuts % (Manual) Lymphocytes % (Manual) Seg Neutrophils # Seg Neutrophils # Man Lymphocytes # (Manual) APTT POC ABG pH ABG pH POC ABG pCO2 POC ABG pO2 ABG pO2 ABG HCO3 ABG Base Excess ABG Hemoglobin VBG pH Oxyhemoglobin Sodium Potassium Chloride Carbon Dioxide BUN Creatinine Glucose POC Glucose 261 H 215 H 176 H Lactic Acid Calcium AST ALT Alkaline Phosphatase CK-MB (CK-2) CK-MB (CK-2) Rel Index Total Protein Albumin TSH Urine WBC (Auto) Salicylates 01/30/17 01/30/17 01/30/17 05:31 05:31 05:34 WBC 15.2 H RBC 3.09 L Hgb 7.9 L Hct 23.9 L MCV 77 L MCH 26 L RDW 16.9 H Plt Count 569 H Lymph % (Auto) [place] % (Auto) Eos % (Auto) [place] # Seg Neutrophils % Seg Neuts % (Manual) Lymphocytes % (Manual) Seg Neutrophils # Seg Neutrophils # Man Lymphocytes # (Manual) APTT POC ABG pH ABG pH POC ABG pCO2 POC ABG pO2 ABG pO2 ABG HCO3 ABG Base Excess ABG Hemoglobin VBG pH Oxyhemoglobin Sodium Potassium Chloride Carbon Dioxide BUN 24 H Creatinine Glucose 235 H POC Glucose 243 H Lactic Acid Calcium AST ALT Alkaline Phosphatase CK-MB (CK-2) CK-MB (CK-2) Rel Index Total Protein Albumin TSH Urine WBC (Auto) Salicylates 01/30/17 01/30/17 01/30/17 11:38 17:58 23:29 WBC RBC Hgb Hct MCV MCH RDW Plt Count Lymph % (Auto) [place] % (Auto) Eos % (Auto) [place] # Seg Neutrophils % Seg Neuts % (Manual) Lymphocytes % (Manual) Seg Neutrophils # Seg Neutrophils # Man Lymphocytes # (Manual) APTT POC ABG pH ABG pH POC ABG pCO2 POC ABG pO2 ABG pO2 ABG HCO3 ABG Base Excess ABG Hemoglobin VBG pH Oxyhemoglobin Sodium Potassium Chloride Carbon Dioxide BUN Creatinine Glucose POC Glucose 298 H 208 H 245 H Lactic Acid Calcium AST ALT Alkaline Phosphatase CK-MB (CK-2) CK-MB (CK-2) Rel Index Total Protein Albumin TSH Urine WBC (Auto) Salicylates 01/31/17 01/31/17 01/31/17 04:39 04:39 05:57 WBC 11.4 H RBC 3.22 L Hgb 8.2 L Hct 24.9 L MCV 78 L MCH 25 L RDW 17.2 H Plt Count 576 H Lymph % (Auto) [place] % (Auto) Eos % (Auto) [place] # Seg Neutrophils % Seg Neuts % (Manual) Lymphocytes % (Manual) Seg Neutrophils # Seg Neutrophils # Man Lymphocytes # (Manual) APTT POC ABG pH ABG pH POC ABG pCO2 POC ABG pO2 ABG pO2 ABG HCO3 ABG Base Excess ABG Hemoglobin VBG pH Oxyhemoglobin Sodium Potassium Chloride Carbon Dioxide BUN Creatinine 0.7 L Glucose 223 H POC Glucose 264 H Lactic Acid Calcium AST ALT Alkaline Phosphatase CK-MB (CK-2) CK-MB (CK-2) Rel Index Total Protein Albumin TSH Urine WBC (Auto) Salicylates 01/31/17 01/31/17 01/31/17 12:23 17:41 18:55 WBC RBC Hgb Hct MCV MCH RDW Plt Count Lymph % (Auto) [place] % (Auto) Eos % (Auto) [place] # Seg Neutrophils % Seg Neuts % (Manual) Lymphocytes % (Manual) Seg Neutrophils # Seg Neutrophils # Man Lymphocytes # (Manual) APTT POC ABG pH ABG pH POC ABG pCO2 32.8 L POC ABG pO2 ABG pO2 ABG HCO3 ABG Base Excess ABG Hemoglobin VBG pH Oxyhemoglobin Sodium Potassium Chloride Carbon Dioxide BUN Creatinine Glucose POC Glucose 252 H 208 H Lactic Acid Calcium AST ALT Alkaline Phosphatase CK-MB (CK-2) CK-MB (CK-2) Rel Index Total Protein Albumin TSH Urine WBC (Auto) Salicylates 01/31/17 02/01/17 02/01/17 22:59 03:38 03:38 WBC RBC 2.81 L Hgb 7.4 L Hct 22.1 L MCV 79 L MCH 27 L RDW 17.0 H Plt Count 540 H Lymph % (Auto) [place] % (Auto) Eos % (Auto) [place] # Seg Neutrophils % Seg Neuts % (Manual) Lymphocytes % (Manual) Seg Neutrophils # Seg Neutrophils # Man Lymphocytes # (Manual) APTT POC ABG pH ABG pH POC ABG pCO2 POC ABG pO2 ABG pO2 ABG HCO3 ABG Base Excess ABG Hemoglobin VBG pH Oxyhemoglobin Sodium Potassium Chloride Carbon Dioxide 21 L BUN Creatinine 0.7 L Glucose POC Glucose 40 L Lactic Acid Calcium AST ALT Alkaline Phosphatase CK-MB (CK-2) CK-MB (CK-2) Rel Index Total Protein Albumin TSH Urine WBC (Auto) Salicylates 02/01/17 02/01/17 02/01/17 05:17 12:19 16:44 WBC RBC Hgb Hct MCV MCH RDW Plt Count Lymph % (Auto) [place] % (Auto) Eos % (Auto) [place] # Seg Neutrophils % Seg Neuts % (Manual) Lymphocytes % (Manual) Seg Neutrophils # Seg Neutrophils # Man Lymphocytes # (Manual) APTT POC ABG pH ABG pH POC ABG pCO2 POC ABG pO2 ABG pO2 ABG HCO3 ABG Base Excess ABG Hemoglobin VBG pH Oxyhemoglobin Sodium Potassium Chloride Carbon Dioxide BUN Creatinine Glucose POC Glucose 140 H 213 H 172 H Lactic Acid Calcium AST ALT Alkaline Phosphatase CK-MB (CK-2) CK-MB (CK-2) Rel Index Total Protein Albumin TSH Urine WBC (Auto) Salicylates 02/01/17 02/02/17 02/02/17 23:59 05:14 11:24 WBC RBC Hgb Hct MCV MCH RDW Plt Count Lymph % (Auto) [place] % (Auto) Eos % (Auto) [place] # Seg Neutrophils % Seg Neuts % (Manual) Lymphocytes % (Manual) Seg Neutrophils # Seg Neutrophils # Man Lymphocytes # (Manual) APTT POC ABG pH ABG pH POC ABG pCO2 POC ABG pO2 ABG pO2 ABG HCO3 ABG Base Excess ABG Hemoglobin VBG pH Oxyhemoglobin Sodium Potassium Chloride Carbon Dioxide BUN Creatinine Glucose POC Glucose 181 H 194 H 209 H Lactic Acid Calcium AST ALT Alkaline Phosphatase CK-MB (CK-2) CK-MB (CK-2) Rel Index Total Protein Albumin TSH Urine WBC (Auto) Salicylates 02/02/17 02/02/17 02/02/17 11:46 11:46 17:47 WBC RBC 2.94 L Hgb 7.5 L Hct 23.0 L MCV 78 L MCH 25 L RDW 16.9 H Plt Count 520 H Lymph % (Auto) [place] % (Auto) Eos % (Auto) [place] # Seg Neutrophils % Seg Neuts % (Manual) Lymphocytes % (Manual) Seg Neutrophils # Seg Neutrophils # Man Lymphocytes # (Manual) APTT POC ABG pH ABG pH POC ABG pCO2 POC ABG pO2 ABG pO2 ABG HCO3 ABG Base Excess ABG Hemoglobin VBG pH Oxyhemoglobin Sodium Potassium Chloride Carbon Dioxide BUN Creatinine 0.6 L Glucose 189 H POC Glucose 147 H Lactic Acid Calcium 8.1 L AST ALT Alkaline Phosphatase CK-MB (CK-2) CK-MB (CK-2) Rel Index Total Protein Albumin TSH Urine WBC (Auto) Salicylates 02/02/17 02/03/17 02/03/17 23:32 05:53 11:19 WBC RBC Hgb Hct MCV MCH RDW Plt Count Lymph % (Auto) [place] % (Auto) Eos % (Auto) [place] # Seg Neutrophils % Seg Neuts % (Manual) Lymphocytes % (Manual) Seg Neutrophils # Seg Neutrophils # Man Lymphocytes # (Manual) APTT POC ABG pH ABG pH POC ABG pCO2 POC ABG pO2 ABG pO2 ABG HCO3 ABG Base Excess ABG Hemoglobin VBG pH Oxyhemoglobin Sodium Potassium Chloride Carbon Dioxide BUN Creatinine Glucose POC Glucose 176 H 224 H 228 H Lactic Acid Calcium AST ALT Alkaline Phosphatase CK-MB (CK-2) CK-MB (CK-2) Rel Index Total Protein Albumin TSH Urine WBC (Auto) Salicylates 02/03/17 02/03/17 02/04/17 16:59 23:38 05:45 WBC RBC Hgb Hct MCV MCH RDW Plt Count Lymph % (Auto) [place] % (Auto) Eos % (Auto) [place] # Seg Neutrophils % Seg Neuts % (Manual) Lymphocytes % (Manual) Seg Neutrophils # Seg Neutrophils # Man Lymphocytes # (Manual) APTT POC ABG pH ABG pH POC ABG pCO2 POC ABG pO2 ABG pO2 ABG HCO3 ABG Base Excess ABG Hemoglobin VBG pH Oxyhemoglobin Sodium Potassium Chloride Carbon Dioxide BUN Creatinine Glucose POC Glucose 189 H 191 H 251 H Lactic Acid Calcium AST ALT Alkaline Phosphatase CK-MB (CK-2) CK-MB (CK-2) Rel Index Total Protein Albumin TSH Urine WBC (Auto) Salicylates 02/04/17 02/04/17 02/05/17 11:20 17:20 00:17 WBC RBC Hgb Hct MCV MCH RDW Plt Count Lymph % (Auto) [place] % (Auto) Eos % (Auto) [place] # Seg Neutrophils % Seg Neuts % (Manual) Lymphocytes % (Manual) Seg Neutrophils # Seg Neutrophils # Man Lymphocytes # (Manual) APTT POC ABG pH ABG pH POC ABG pCO2 POC ABG pO2 ABG pO2 ABG HCO3 ABG Base Excess ABG Hemoglobin VBG pH Oxyhemoglobin Sodium Potassium Chloride Carbon Dioxide BUN Creatinine Glucose POC Glucose 243 H 163 H 200 H Lactic Acid Calcium AST ALT Alkaline Phosphatase CK-MB (CK-2) CK-MB (CK-2) Rel Index Total Protein Albumin TSH Urine WBC (Auto) Salicylates 02/05/17 02/05/17 02/05/17 05:38 12:38 16:29 WBC RBC Hgb Hct MCV MCH RDW Plt Count Lymph % (Auto) [place] % (Auto) Eos % (Auto) [place] # Seg Neutrophils % Seg Neuts % (Manual) Lymphocytes % (Manual) Seg Neutrophils # Seg Neutrophils # Man Lymphocytes # (Manual) APTT POC ABG pH ABG pH POC ABG pCO2 POC ABG pO2 ABG pO2 ABG HCO3 ABG Base Excess ABG Hemoglobin VBG pH Oxyhemoglobin Sodium Potassium Chloride Carbon Dioxide BUN Creatinine Glucose POC Glucose 248 H 241 H 257 H Lactic Acid Calcium AST ALT Alkaline Phosphatase CK-MB (CK-2) CK-MB (CK-2) Rel Index Total Protein Albumin TSH Urine WBC (Auto) Salicylates 02/05/17 02/06/17 02/06/17 23:56 05:30 11:50 WBC RBC Hgb Hct MCV MCH RDW Plt Count Lymph % (Auto) [place] % (Auto) Eos % (Auto) [place] # Seg Neutrophils % Seg Neuts % (Manual) Lymphocytes % (Manual) Seg Neutrophils # Seg Neutrophils # Man Lymphocytes # (Manual) APTT POC ABG pH ABG pH POC ABG pCO2 POC ABG pO2 ABG pO2 ABG HCO3 ABG Base Excess ABG Hemoglobin VBG pH Oxyhemoglobin Sodium Potassium Chloride Carbon Dioxide BUN Creatinine Glucose POC Glucose 258 H 120 H 254 H Lactic Acid Calcium AST ALT Alkaline Phosphatase CK-MB (CK-2) CK-MB (CK-2) Rel Index Total Protein Albumin TSH Urine WBC (Auto) Salicylates 02/06/17 02/06/17 02/07/17 17:11 23:50 05:22 WBC RBC Hgb Hct MCV MCH RDW Plt Count Lymph % (Auto) [place] % (Auto) Eos % (Auto) [place] # Seg Neutrophils % Seg Neuts % (Manual) Lymphocytes % (Manual) Seg Neutrophils # Seg Neutrophils # Man Lymphocytes # (Manual) APTT POC ABG pH ABG pH POC ABG pCO2 POC ABG pO2 ABG pO2 ABG HCO3 ABG Base Excess ABG Hemoglobin VBG pH Oxyhemoglobin Sodium Potassium Chloride Carbon Dioxide BUN Creatinine Glucose POC Glucose 149 H 240 H 258 H Lactic Acid Calcium AST ALT Alkaline Phosphatase CK-MB (CK-2) CK-MB (CK-2) Rel Index Total Protein Albumin TSH Urine WBC (Auto) Salicylates 02/07/17 02/07/17 02/07/17 11:15 18:33 23:59 WBC RBC Hgb Hct MCV MCH RDW Plt Count Lymph % (Auto) [place] % (Auto) Eos % (Auto) [place] # Seg Neutrophils % Seg Neuts % (Manual) Lymphocytes % (Manual) Seg Neutrophils # Seg Neutrophils # Man Lymphocytes # (Manual) APTT POC ABG pH ABG pH POC ABG pCO2 POC ABG pO2 ABG pO2 ABG HCO3 ABG Base Excess ABG Hemoglobin VBG pH Oxyhemoglobin Sodium Potassium Chloride Carbon Dioxide BUN Creatinine Glucose POC Glucose 239 H 176 H 186 H Lactic Acid Calcium AST ALT Alkaline Phosphatase CK-MB (CK-2) CK-MB (CK-2) Rel Index Total Protein Albumin TSH Urine WBC (Auto) Salicylates 02/08/17 02/08/17 02/08/17 06:15 11:55 16:55 WBC RBC Hgb Hct MCV MCH RDW Plt Count Lymph % (Auto) [place] % (Auto) Eos % (Auto) [place] # Seg Neutrophils % Seg Neuts % (Manual) Lymphocytes % (Manual) Seg Neutrophils # Seg Neutrophils # Man Lymphocytes # (Manual) APTT POC ABG pH ABG pH POC ABG pCO2 POC ABG pO2 ABG pO2 ABG HCO3 ABG Base Excess ABG Hemoglobin VBG pH Oxyhemoglobin Sodium Potassium Chloride Carbon Dioxide BUN Creatinine Glucose POC Glucose 195 H 129 H 246 H Lactic Acid Calcium AST ALT Alkaline Phosphatase CK-MB (CK-2) CK-MB (CK-2) Rel Index Total Protein Albumin TSH Urine WBC (Auto) Salicylates 02/08/17 02/09/17 02/09/17 23:51 05:51 07:24 WBC 14.7 H RBC 3.39 L Hgb 8.9 L Hct 26.4 L MCV 78 L MCH 26 L RDW 18.4 H Plt Count 670 H Lymph % (Auto) 11.8 L [place] % (Auto) Eos % (Auto) [place] # Seg Neutrophils % 81.2 H Seg Neuts % (Manual) Lymphocytes % (Manual) Seg Neutrophils # 11.9 H Seg Neutrophils # Man Lymphocytes # (Manual) APTT POC ABG pH ABG pH POC ABG pCO2 POC ABG pO2 ABG pO2 ABG HCO3 ABG Base Excess ABG Hemoglobin VBG pH Oxyhemoglobin Sodium Potassium Chloride Carbon Dioxide BUN Creatinine Glucose POC Glucose 262 H 295 H Lactic Acid Calcium AST ALT Alkaline Phosphatase CK-MB (CK-2) CK-MB (CK-2) Rel Index Total Protein Albumin TSH Urine WBC (Auto) Salicylates 02/09/17 02/09/17 02/09/17 07:24 12:08 18:39 WBC RBC Hgb Hct MCV MCH RDW Plt Count Lymph % (Auto) [place] % (Auto) Eos % (Auto) [place] # Seg Neutrophils % Seg Neuts % (Manual) Lymphocytes % (Manual) Seg Neutrophils # Seg Neutrophils # Man Lymphocytes # (Manual) APTT POC ABG pH ABG pH POC ABG pCO2 POC ABG pO2 ABG pO2 ABG HCO3 ABG Base Excess ABG Hemoglobin VBG pH Oxyhemoglobin Sodium Potassium Chloride 95.5 L Carbon Dioxide BUN 52 H Creatinine Glucose 277 H POC Glucose 236 H 151 H Lactic Acid Calcium AST ALT Alkaline Phosphatase CK-MB (CK-2) CK-MB (CK-2) Rel Index Total Protein Albumin TSH Urine WBC (Auto) Salicylates 02/10/17 02/10/17 02/10/17 00:01 05:44 11:21 WBC RBC Hgb Hct MCV MCH RDW Plt Count Lymph % (Auto) [place] % (Auto) Eos % (Auto) [place] # Seg Neutrophils % Seg Neuts % (Manual) Lymphocytes % (Manual) Seg Neutrophils # Seg Neutrophils # Man Lymphocytes # (Manual) APTT POC ABG pH ABG pH POC ABG pCO2 POC ABG pO2 ABG pO2 ABG HCO3 ABG Base Excess ABG Hemoglobin VBG pH Oxyhemoglobin Sodium Potassium Chloride Carbon Dioxide BUN Creatinine Glucose POC Glucose 210 H 201 H 233 H Lactic Acid Calcium AST ALT Alkaline Phosphatase CK-MB (CK-2) CK-MB (CK-2) Rel Index Total Protein Albumin TSH Urine WBC (Auto) Salicylates 02/10/17 02/10/17 02/11/17 17:29 23:56 05:24 WBC RBC Hgb Hct MCV MCH RDW Plt Count Lymph % (Auto) [place] % (Auto) Eos % (Auto) [place] # Seg Neutrophils % Seg Neuts % (Manual) Lymphocytes % (Manual) Seg Neutrophils # Seg Neutrophils # Man Lymphocytes # (Manual) APTT POC ABG pH ABG pH POC ABG pCO2 POC ABG pO2 ABG pO2 ABG HCO3 ABG Base Excess ABG Hemoglobin VBG pH Oxyhemoglobin Sodium Potassium Chloride Carbon Dioxide BUN Creatinine Glucose POC Glucose 167 H 191 H 135 H Lactic Acid Calcium AST ALT Alkaline Phosphatase CK-MB (CK-2) CK-MB (CK-2) Rel Index Total Protein Albumin TSH Urine WBC (Auto) Salicylates 02/11/17 02/11/17 02/11/17 12:25 17:03 23:59 WBC RBC Hgb Hct MCV MCH RDW Plt Count Lymph % (Auto) [place] % (Auto) Eos % (Auto) [place] # Seg Neutrophils % Seg Neuts % (Manual) Lymphocytes % (Manual) Seg Neutrophils # Seg Neutrophils # Man Lymphocytes # (Manual) APTT POC ABG pH ABG pH POC ABG pCO2 POC ABG pO2 ABG pO2 ABG HCO3 ABG Base Excess ABG Hemoglobin VBG pH Oxyhemoglobin Sodium Potassium Chloride Carbon Dioxide BUN Creatinine Glucose POC Glucose 275 H 172 H 215 H Lactic Acid Calcium AST ALT Alkaline Phosphatase CK-MB (CK-2) CK-MB (CK-2) Rel Index Total Protein Albumin TSH Urine WBC (Auto) Salicylates 02/12/17 02/12/17 02/12/17 05:39 11:33 17:55 WBC RBC Hgb Hct MCV MCH RDW Plt Count Lymph % (Auto) [place] % (Auto) Eos % (Auto) [place] # Seg Neutrophils % Seg Neuts % (Manual) Lymphocytes % (Manual) Seg Neutrophils # Seg Neutrophils # Man Lymphocytes # (Manual) APTT POC ABG pH ABG pH POC ABG pCO2 POC ABG pO2 ABG pO2 ABG HCO3 ABG Base Excess ABG Hemoglobin VBG pH Oxyhemoglobin Sodium Potassium Chloride Carbon Dioxide BUN Creatinine Glucose POC Glucose 261 H 217 H 172 H Lactic Acid Calcium AST ALT Alkaline Phosphatase CK-MB (CK-2) CK-MB (CK-2) Rel Index Total Protein Albumin TSH Urine WBC (Auto) Salicylates 11/08/2502/13/17 02/13/17 00:25 06:46 11:26 WBC RBC Hgb Hct MCV MCH RDW Plt Count Lymph % (Auto) [place] % (Auto) Eos % (Auto) [place] # Seg Neutrophils % Seg Neuts % (Manual) Lymphocytes % (Manual) Seg Neutrophils # Seg Neutrophils # Man Lymphocytes # (Manual) APTT POC ABG pH ABG pH POC ABG pCO2 POC ABG pO2 ABG pO2 ABG HCO3 ABG Base Excess ABG Hemoglobin VBG pH Oxyhemoglobin Sodium Potassium Chloride Carbon Dioxide BUN Creatinine Glucose POC Glucose 207 H 219 H 231 H Lactic Acid Calcium AST ALT Alkaline Phosphatase CK-MB (CK-2) CK-MB (CK-2) Rel Index Total Protein Albumin TSH Urine WBC (Auto) Salicylates 02/13/17 02/13/17 02/14/17 17:12 23:44 05:44 WBC RBC Hgb Hct MCV MCH RDW Plt Count Lymph % (Auto) [place] % (Auto) Eos % (Auto) [place] # Seg Neutrophils % Seg Neuts % (Manual) Lymphocytes % (Manual) Seg Neutrophils # Seg Neutrophils # Man Lymphocytes # (Manual) APTT POC ABG pH ABG pH POC ABG pCO2 POC ABG pO2 ABG pO2 ABG HCO3 ABG Base Excess ABG Hemoglobin VBG pH Oxyhemoglobin Sodium Potassium Chloride Carbon Dioxide BUN Creatinine Glucose POC Glucose 190 H 256 H 184 H Lactic Acid Calcium AST ALT Alkaline Phosphatase CK-MB (CK-2) CK-MB (CK-2) Rel Index Total Protein Albumin TSH Urine WBC (Auto) Salicylates 02/14/17 02/14/17 02/14/17 12:21 17:57 23:18 WBC RBC Hgb Hct MCV MCH RDW Plt Count Lymph % (Auto) [place] % (Auto) Eos % (Auto) [place] # Seg Neutrophils % Seg Neuts % (Manual) Lymphocytes % (Manual) Seg Neutrophils # Seg Neutrophils # Man Lymphocytes # (Manual) APTT POC ABG pH ABG pH POC ABG pCO2 POC ABG pO2 ABG pO2 ABG HCO3 ABG Base Excess ABG Hemoglobin VBG pH Oxyhemoglobin Sodium Potassium Chloride Carbon Dioxide BUN Creatinine Glucose POC Glucose 233 H 155 H 165 H Lactic Acid Calcium AST ALT Alkaline Phosphatase CK-MB (CK-2) CK-MB (CK-2) Rel Index Total Protein Albumin TSH Urine WBC (Auto) Salicylates 02/15/17 02/15/17 02/15/17 05:33 11:45 17:20 WBC RBC Hgb Hct MCV MCH RDW Plt Count Lymph % (Auto) [place] % (Auto) Eos % (Auto) [place] # Seg Neutrophils % Seg Neuts % (Manual) Lymphocytes % (Manual) Seg Neutrophils # Seg Neutrophils # Man Lymphocytes # (Manual) APTT POC ABG pH ABG pH POC ABG pCO2 POC ABG pO2 ABG pO2 ABG HCO3 ABG Base Excess ABG Hemoglobin VBG pH Oxyhemoglobin Sodium Potassium Chloride Carbon Dioxide BUN Creatinine Glucose POC Glucose 239 H 130 H 189 H Lactic Acid Calcium AST ALT Alkaline Phosphatase CK-MB (CK-2) CK-MB (CK-2) Rel Index Total Protein Albumin TSH Urine WBC (Auto) Salicylates 02/16/17 02/16/17 02/16/17 00:14 05:09 12:31 WBC RBC Hgb Hct MCV MCH RDW Plt Count Lymph % (Auto) [place] % (Auto) Eos % (Auto) [place] # Seg Neutrophils % Seg Neuts % (Manual) Lymphocytes % (Manual) Seg Neutrophils # Seg Neutrophils # Man Lymphocytes # (Manual) APTT POC ABG pH ABG pH POC ABG pCO2 POC ABG pO2 ABG pO2 ABG HCO3 ABG Base Excess ABG Hemoglobin VBG pH Oxyhemoglobin Sodium Potassium Chloride Carbon Dioxide BUN Creatinine Glucose POC Glucose 197 H 226 H 178 H Lactic Acid Calcium AST ALT Alkaline Phosphatase CK-MB (CK-2) CK-MB (CK-2) Rel Index Total Protein Albumin TSH Urine WBC (Auto) Salicylates 02/16/17 02/16/17 02/17/17 16:35 23:49 05:37 WBC RBC Hgb Hct MCV MCH RDW Plt Count Lymph % (Auto) [place] % (Auto) Eos % (Auto) [place] # Seg Neutrophils % Seg Neuts % (Manual) Lymphocytes % (Manual) Seg Neutrophils # Seg Neutrophils # Man Lymphocytes # (Manual) APTT POC ABG pH ABG pH POC ABG pCO2 POC ABG pO2 ABG pO2 ABG HCO3 ABG Base Excess ABG Hemoglobin VBG pH Oxyhemoglobin Sodium Potassium Chloride Carbon Dioxide BUN Creatinine Glucose POC Glucose 174 H 62 L 153 H Lactic Acid Calcium AST ALT Alkaline Phosphatase CK-MB (CK-2) CK-MB (CK-2) Rel Index Total Protein Albumin TSH Urine WBC (Auto) Salicylates 02/17/17 02/17/17 02/17/17 11:39 17:02 22:24 WBC RBC Hgb Hct MCV MCH RDW Plt Count Lymph % (Auto) [place] % (Auto) Eos % (Auto) [place] # Seg Neutrophils % Seg Neuts % (Manual) Lymphocytes % (Manual) Seg Neutrophils # Seg Neutrophils # Man Lymphocytes # (Manual) APTT POC ABG pH ABG pH POC ABG pCO2 POC ABG pO2 ABG pO2 ABG HCO3 ABG Base Excess ABG Hemoglobin VBG pH Oxyhemoglobin Sodium Potassium Chloride Carbon Dioxide BUN Creatinine Glucose POC Glucose 231 H 112 H 116 H Lactic Acid Calcium AST ALT Alkaline Phosphatase CK-MB (CK-2) CK-MB (CK-2) Rel Index Total Protein Albumin TSH Urine WBC (Auto) Salicylates 02/18/17 02/19/17 02/19/17 15:34 05:09 07:57 WBC RBC Hgb Hct MCV MCH RDW Plt Count Lymph % (Auto) [place] % (Auto) Eos % (Auto) [place] # Seg Neutrophils % Seg Neuts % (Manual) Lymphocytes % (Manual) Seg Neutrophils # Seg Neutrophils # Man Lymphocytes # (Manual) APTT POC ABG pH ABG pH POC ABG pCO2 POC ABG pO2 ABG pO2 ABG HCO3 ABG Base Excess ABG Hemoglobin VBG pH Oxyhemoglobin Sodium Potassium Chloride Carbon Dioxide BUN Creatinine Glucose POC Glucose 215 H 218 H 283 H Lactic Acid Calcium AST ALT Alkaline Phosphatase CK-MB (CK-2) CK-MB (CK-2) Rel Index Total Protein Albumin TSH Urine WBC (Auto) Salicylates 02/19/17 02/19/17 02/20/17 14:49 22:10 05:10 WBC RBC Hgb Hct MCV MCH RDW Plt Count Lymph % (Auto) [place] % (Auto) Eos % (Auto) [place] # Seg Neutrophils % Seg Neuts % (Manual) Lymphocytes % (Manual) Seg Neutrophils # Seg Neutrophils # Man Lymphocytes # (Manual) APTT POC ABG pH ABG pH POC ABG pCO2 POC ABG pO2 ABG pO2 ABG HCO3 ABG Base Excess ABG Hemoglobin VBG pH Oxyhemoglobin Sodium Potassium Chloride Carbon Dioxide BUN Creatinine Glucose POC Glucose 290 H 169 H 209 H Lactic Acid Calcium AST ALT Alkaline Phosphatase CK-MB (CK-2) CK-MB (CK-2) Rel Index Total Protein Albumin TSH Urine WBC (Auto) Salicylates 02/20/17 02/20/17 02/21/17 15:05 21:52 02:00 WBC RBC Hgb Hct MCV MCH RDW Plt Count Lymph % (Auto) [place] % (Auto) Eos % (Auto) [place] # Seg Neutrophils % Seg Neuts % (Manual) Lymphocytes % (Manual) Seg Neutrophils # Seg Neutrophils # Man Lymphocytes # (Manual) APTT POC ABG pH ABG pH POC ABG pCO2 POC ABG pO2 ABG pO2 ABG HCO3 ABG Base Excess ABG Hemoglobin VBG pH Oxyhemoglobin Sodium Potassium Chloride Carbon Dioxide BUN Creatinine Glucose POC Glucose 172 H 209 H 216 H Lactic Acid Calcium AST ALT Alkaline Phosphatase CK-MB (CK-2) CK-MB (CK-2) Rel Index Total Protein Albumin TSH Urine WBC (Auto) Salicylates 02/21/17 02/21/17 02/21/17 04:54 14:43 17:47 WBC RBC Hgb Hct MCV MCH RDW Plt Count Lymph % (Auto) [place] % (Auto) Eos % (Auto) [place] # Seg Neutrophils % Seg Neuts % (Manual) Lymphocytes % (Manual) Seg Neutrophils # Seg Neutrophils # Man Lymphocytes # (Manual) APTT POC ABG pH ABG pH POC ABG pCO2 POC ABG pO2 ABG pO2 ABG HCO3 ABG Base Excess ABG Hemoglobin VBG pH Oxyhemoglobin Sodium Potassium Chloride Carbon Dioxide BUN Creatinine Glucose POC Glucose 227 H 290 H 220 H Lactic Acid Calcium AST ALT Alkaline Phosphatase CK-MB (CK-2) CK-MB (CK-2) Rel Index Total Protein Albumin TSH Urine WBC (Auto) Salicylates 02/21/17 02/22/17 02/22/17 22:02 04:52 15:25 WBC RBC Hgb Hct MCV MCH RDW Plt Count Lymph % (Auto) [place] % (Auto) Eos % (Auto) [place] # Seg Neutrophils % Seg Neuts % (Manual) Lymphocytes % (Manual) Seg Neutrophils # Seg Neutrophils # Man Lymphocytes # (Manual) APTT POC ABG pH ABG pH POC ABG pCO2 POC ABG pO2 ABG pO2 ABG HCO3 ABG Base Excess ABG Hemoglobin VBG pH Oxyhemoglobin Sodium Potassium Chloride Carbon Dioxide BUN Creatinine Glucose POC Glucose 246 H 212 H 236 H Lactic Acid Calcium AST ALT Alkaline Phosphatase CK-MB (CK-2) CK-MB (CK-2) Rel Index Total Protein Albumin TSH Urine WBC (Auto) Salicylates 02/22/17 02/23/17 02/23/17 21:33 06:04 10:00 WBC RBC Hgb Hct MCV MCH RDW Plt Count Lymph % (Auto) [place] % (Auto) Eos % (Auto) [place] # Seg Neutrophils % Seg Neuts % (Manual) Lymphocytes % (Manual) Seg Neutrophils # Seg Neutrophils # Man Lymphocytes # (Manual) APTT POC ABG pH ABG pH POC ABG pCO2 POC ABG pO2 ABG pO2 ABG HCO3 ABG Base Excess ABG Hemoglobin VBG pH Oxyhemoglobin Sodium Potassium Chloride Carbon Dioxide BUN Creatinine Glucose POC Glucose 255 H 208 H 174 H Lactic Acid Calcium AST ALT Alkaline Phosphatase CK-MB (CK-2) CK-MB (CK-2) Rel Index Total Protein Albumin TSH Urine WBC (Auto) Salicylates 02/23/17 02/23/17 02/23/17 12:52 17:15 21:51 WBC RBC Hgb Hct MCV MCH RDW Plt Count Lymph % (Auto) [place] % (Auto) Eos % (Auto) [place] # Seg Neutrophils % Seg Neuts % (Manual) Lymphocytes % (Manual) Seg Neutrophils # Seg Neutrophils # Man Lymphocytes # (Manual) APTT POC ABG pH ABG pH POC ABG pCO2 POC ABG pO2 ABG pO2 ABG HCO3 ABG Base Excess ABG Hemoglobin VBG pH Oxyhemoglobin Sodium Potassium Chloride Carbon Dioxide BUN Creatinine Glucose POC Glucose 203 H 269 H 205 H Lactic Acid Calcium AST ALT Alkaline Phosphatase CK-MB (CK-2) CK-MB (CK-2) Rel Index Total Protein Albumin TSH Urine WBC (Auto) Salicylates 02/24/17 02/24/17 02/24/17 10:23 17:45 21:24 WBC RBC Hgb Hct MCV MCH RDW Plt Count Lymph % (Auto) [place] % (Auto) Eos % (Auto) [place] # Seg Neutrophils % Seg Neuts % (Manual) Lymphocytes % (Manual) Seg Neutrophils # Seg Neutrophils # Man Lymphocytes # (Manual) APTT POC ABG pH ABG pH POC ABG pCO2 POC ABG pO2 ABG pO2 ABG HCO3 ABG Base Excess ABG Hemoglobin VBG pH Oxyhemoglobin Sodium Potassium Chloride Carbon Dioxide BUN Creatinine Glucose POC Glucose 280 H 239 H 254 H Lactic Acid Calcium AST ALT Alkaline Phosphatase CK-MB (CK-2) CK-MB (CK-2) Rel Index Total Protein Albumin TSH Urine WBC (Auto) Salicylates 02/25/17 02/25/17 02/25/17 02:12 05:17 14:32 WBC RBC Hgb Hct MCV MCH RDW Plt Count Lymph % (Auto) [place] % (Auto) Eos % (Auto) [place] # Seg Neutrophils % Seg Neuts % (Manual) Lymphocytes % (Manual) Seg Neutrophils # Seg Neutrophils # Man Lymphocytes # (Manual) APTT POC ABG pH ABG pH POC ABG pCO2 POC ABG pO2 ABG pO2 ABG HCO3 ABG Base Excess ABG Hemoglobin VBG pH Oxyhemoglobin Sodium Potassium Chloride Carbon Dioxide BUN Creatinine Glucose POC Glucose 296 H 332 H 353 H Lactic Acid Calcium AST ALT Alkaline Phosphatase CK-MB (CK-2) CK-MB (CK-2) Rel Index Total Protein Albumin TSH Urine WBC (Auto) Salicylates 02/25/17 02/26/17 02/26/17 22:14 00:37 05:52 WBC RBC Hgb Hct MCV MCH RDW Plt Count Lymph % (Auto) [place] % (Auto) Eos % (Auto) [place] # Seg Neutrophils % Seg Neuts % (Manual) Lymphocytes % (Manual) Seg Neutrophils # Seg Neutrophils # Man Lymphocytes # (Manual) APTT POC ABG pH ABG pH POC ABG pCO2 POC ABG pO2 ABG pO2 ABG HCO3 ABG Base Excess ABG Hemoglobin VBG pH Oxyhemoglobin Sodium Potassium Chloride Carbon Dioxide BUN Creatinine Glucose POC Glucose 201 H 233 H 269 H Lactic Acid Calcium AST ALT Alkaline Phosphatase CK-MB (CK-2) CK-MB (CK-2) Rel Index Total Protein Albumin TSH Urine WBC (Auto) Salicylates 02/26/17 02/26/17 02/26/17 11:48 13:49 21:26 WBC RBC Hgb Hct MCV MCH RDW Plt Count Lymph % (Auto) [place] % (Auto) Eos % (Auto) [place] # Seg Neutrophils % Seg Neuts % (Manual) Lymphocytes % (Manual) Seg Neutrophils # Seg Neutrophils # Man Lymphocytes # (Manual) APTT POC ABG pH ABG pH POC ABG pCO2 POC ABG pO2 ABG pO2 ABG HCO3 ABG Base Excess ABG Hemoglobin VBG pH Oxyhemoglobin Sodium Potassium Chloride Carbon Dioxide BUN Creatinine Glucose POC Glucose 333 H 322 H 244 H Lactic Acid Calcium AST ALT Alkaline Phosphatase CK-MB (CK-2) CK-MB (CK-2) Rel Index Total Protein Albumin TSH Urine WBC (Auto) Salicylates 02/27/17 02/27/17 02/27/17 05:27 13:51 21:48 WBC RBC Hgb Hct MCV MCH RDW Plt Count Lymph % (Auto) [place] % (Auto) Eos % (Auto) [place] # Seg Neutrophils % Seg Neuts % (Manual) Lymphocytes % (Manual) Seg Neutrophils # Seg Neutrophils # Man Lymphocytes # (Manual) APTT POC ABG pH ABG pH POC ABG pCO2 POC ABG pO2 ABG pO2 ABG HCO3 ABG Base Excess ABG Hemoglobin VBG pH Oxyhemoglobin Sodium Potassium Chloride Carbon Dioxide BUN Creatinine Glucose POC Glucose 217 H 239 H 254 H Lactic Acid Calcium AST ALT Alkaline Phosphatase CK-MB (CK-2) CK-MB (CK-2) Rel Index Total Protein Albumin TSH Urine WBC (Auto) Salicylates 02/28/17 02/28/17 02/28/17 05:38 11:00 19:44 WBC RBC Hgb Hct MCV MCH RDW Plt Count Lymph % (Auto) [place] % (Auto) Eos % (Auto) [place] # Seg Neutrophils % Seg Neuts % (Manual) Lymphocytes % (Manual) Seg Neutrophils # Seg Neutrophils # Man Lymphocytes # (Manual) APTT POC ABG pH ABG pH POC ABG pCO2 POC ABG pO2 ABG pO2 ABG HCO3 ABG Base Excess ABG Hemoglobin VBG pH Oxyhemoglobin Sodium Potassium Chloride Carbon Dioxide BUN Creatinine Glucose POC Glucose 325 H 203 H 116 H Lactic Acid Calcium AST ALT Alkaline Phosphatase CK-MB (CK-2) CK-MB (CK-2) Rel Index Total Protein Albumin TSH Urine WBC (Auto) Salicylates 03/01/17 03/01/17 03/01/17 00:08 05:31 12:17 WBC RBC Hgb Hct MCV MCH RDW Plt Count Lymph % (Auto) [place] % (Auto) Eos % (Auto) [place] # Seg Neutrophils % Seg Neuts % (Manual) Lymphocytes % (Manual) Seg Neutrophils # Seg Neutrophils # Man Lymphocytes # (Manual) APTT POC ABG pH ABG pH POC ABG pCO2 POC ABG pO2 ABG pO2 ABG HCO3 ABG Base Excess ABG Hemoglobin VBG pH Oxyhemoglobin Sodium Potassium Chloride Carbon Dioxide BUN Creatinine Glucose POC Glucose 202 H 183 H 184 H Lactic Acid Calcium AST ALT Alkaline Phosphatase CK-MB (CK-2) CK-MB (CK-2) Rel Index Total Protein Albumin TSH Urine WBC (Auto) Salicylates 03/02/17 03/02/17 03/02/17 00:12 05:58 18:22 WBC RBC Hgb Hct MCV MCH RDW Plt Count Lymph % (Auto) [place] % (Auto) Eos % (Auto) [place] # Seg Neutrophils % Seg Neuts % (Manual) Lymphocytes % (Manual) Seg Neutrophils # Seg Neutrophils # Man Lymphocytes # (Manual) APTT POC ABG pH ABG pH POC ABG pCO2 POC ABG pO2 ABG pO2 ABG HCO3 ABG Base Excess ABG Hemoglobin VBG pH Oxyhemoglobin Sodium Potassium Chloride Carbon Dioxide BUN Creatinine Glucose POC Glucose 117 H 176 H 156 H Lactic Acid Calcium AST ALT Alkaline Phosphatase CK-MB (CK-2) CK-MB (CK-2) Rel Index Total Protein Albumin TSH Urine WBC (Auto) Salicylates 03/02/17 03/03/17 03/03/17 23:51 05:44 11:32 WBC RBC Hgb Hct MCV MCH RDW Plt Count Lymph % (Auto) [place] % (Auto) Eos % (Auto) [place] # Seg Neutrophils % Seg Neuts % (Manual) Lymphocytes % (Manual) Seg Neutrophils # Seg Neutrophils # Man Lymphocytes # (Manual) APTT POC ABG pH ABG pH POC ABG pCO2 POC ABG pO2 ABG pO2 ABG HCO3 ABG Base Excess ABG Hemoglobin VBG pH Oxyhemoglobin Sodium Potassium Chloride Carbon Dioxide BUN Creatinine Glucose POC Glucose 211 H 117 H 133 H Lactic Acid Calcium AST ALT Alkaline Phosphatase CK-MB (CK-2) CK-MB (CK-2) Rel Index Total Protein Albumin TSH Urine WBC (Auto) Salicylates 03/03/17 03/03/17 03/04/17 17:43 23:17 05:30 WBC RBC Hgb Hct MCV MCH RDW Plt Count Lymph % (Auto) [place] % (Auto) Eos % (Auto) [place] # Seg Neutrophils % Seg Neuts % (Manual) Lymphocytes % (Manual) Seg Neutrophils # Seg Neutrophils # Man Lymphocytes # (Manual) APTT POC ABG pH ABG pH POC ABG pCO2 POC ABG pO2 ABG pO2 ABG HCO3 ABG Base Excess ABG Hemoglobin VBG pH Oxyhemoglobin Sodium Potassium Chloride Carbon Dioxide BUN Creatinine Glucose POC Glucose 206 H 170 H 126 H Lactic Acid Calcium AST ALT Alkaline Phosphatase CK-MB (CK-2) CK-MB (CK-2) Rel Index Total Protein Albumin TSH Urine WBC (Auto) Salicylates 03/04/17 03/04/17 03/05/17 12:17 17:27 05:20 WBC RBC Hgb Hct MCV MCH RDW Plt Count Lymph % (Auto) [place] % (Auto) Eos % (Auto) [place] # Seg Neutrophils % Seg Neuts % (Manual) Lymphocytes % (Manual) Seg Neutrophils # Seg Neutrophils # Man Lymphocytes # (Manual) APTT POC ABG pH ABG pH POC ABG pCO2 POC ABG pO2 ABG pO2 ABG HCO3 ABG Base Excess ABG Hemoglobin VBG pH Oxyhemoglobin Sodium Potassium Chloride Carbon Dioxide BUN Creatinine Glucose POC Glucose 135 H 121 H 185 H Lactic Acid Calcium AST ALT Alkaline Phosphatase CK-MB (CK-2) CK-MB (CK-2) Rel Index Total Protein Albumin TSH Urine WBC (Auto) Salicylates 03/05/17 03/06/17 03/06/17 11:50 11:52 17:34 WBC RBC Hgb Hct MCV MCH RDW Plt Count Lymph % (Auto) [place] % (Auto) Eos % (Auto) [place] # Seg Neutrophils % Seg Neuts % (Manual) Lymphocytes % (Manual) Seg Neutrophils # Seg Neutrophils # Man Lymphocytes # (Manual) APTT POC ABG pH ABG pH POC ABG pCO2 POC ABG pO2 ABG pO2 ABG HCO3 ABG Base Excess ABG Hemoglobin VBG pH Oxyhemoglobin Sodium Potassium Chloride Carbon Dioxide BUN Creatinine Glucose POC Glucose 116 H 133 H 181 H Lactic Acid Calcium AST ALT Alkaline Phosphatase CK-MB (CK-2) CK-MB (CK-2) Rel Index Total Protein Albumin TSH Urine WBC (Auto) Salicylates 03/07/17 03/07/17 03/07/17 05:21 11:36 17:49 WBC RBC Hgb Hct MCV MCH RDW Plt Count Lymph % (Auto) [place] % (Auto) Eos % (Auto) [place] # Seg Neutrophils % Seg Neuts % (Manual) Lymphocytes % (Manual) Seg Neutrophils # Seg Neutrophils # Man Lymphocytes # (Manual) APTT POC ABG pH ABG pH POC ABG pCO2 POC ABG pO2 ABG pO2 ABG HCO3 ABG Base Excess ABG Hemoglobin VBG pH Oxyhemoglobin Sodium Potassium Chloride Carbon Dioxide BUN Creatinine Glucose POC Glucose 159 H 137 H 158 H Lactic Acid Calcium AST ALT Alkaline Phosphatase CK-MB (CK-2) CK-MB (CK-2) Rel Index Total Protein Albumin TSH Urine WBC (Auto) Salicylates 03/08/17 03/08/17 03/08/17 05:51 13:58 23:50 WBC RBC Hgb Hct MCV MCH RDW Plt Count Lymph % (Auto) [place] % (Auto) Eos % (Auto) [place] # Seg Neutrophils % Seg Neuts % (Manual) Lymphocytes % (Manual) Seg Neutrophils # Seg Neutrophils # Man Lymphocytes # (Manual) APTT POC ABG pH ABG pH POC ABG pCO2 POC ABG pO2 ABG pO2 ABG HCO3 ABG Base Excess ABG Hemoglobin VBG pH Oxyhemoglobin Sodium Potassium Chloride Carbon Dioxide BUN Creatinine Glucose POC Glucose 122 H 182 H 114 H Lactic Acid Calcium AST ALT Alkaline Phosphatase CK-MB (CK-2) CK-MB (CK-2) Rel Index Total Protein Albumin TSH Urine WBC (Auto) Salicylates 03/09/17 03/09/17 03/09/17 05:21 05:51 05:51 WBC RBC 3.61 L Hgb 9.5 L Hct 28.3 L MCV 79 L MCH 26 L RDW 17.8 H Plt Count Lymph % (Auto) [place] % (Auto) Eos % (Auto) [place] # Seg Neutrophils % Seg Neuts % (Manual) Lymphocytes % (Manual) Seg Neutrophils # Seg Neutrophils # Man Lymphocytes # (Manual) APTT POC ABG pH ABG pH POC ABG pCO2 POC ABG pO2 ABG pO2 ABG HCO3 ABG Base Excess ABG Hemoglobin VBG pH Oxyhemoglobin Sodium 134 L Potassium Chloride 95.5 L Carbon Dioxide BUN 33 H Creatinine 0.5 L Glucose 143 H POC Glucose 153 H Lactic Acid Calcium AST ALT Alkaline Phosphatase CK-MB (CK-2) CK-MB (CK-2) Rel Index Total Protein Albumin TSH Urine WBC (Auto) Salicylates 03/09/17 03/09/17 03/09/17 12:10 18:13 21:00 WBC RBC Hgb Hct MCV MCH RDW Plt Count Lymph % (Auto) [place] % (Auto) Eos % (Auto) [place] # Seg Neutrophils % Seg Neuts % (Manual) Lymphocytes % (Manual) Seg Neutrophils # Seg Neutrophils # Man Lymphocytes # (Manual) APTT POC ABG pH ABG pH POC ABG pCO2 POC ABG pO2 ABG pO2 ABG HCO3 ABG Base Excess ABG Hemoglobin VBG pH Oxyhemoglobin Sodium Potassium Chloride Carbon Dioxide BUN Creatinine Glucose POC Glucose 203 H 221 H 198 H Lactic Acid Calcium AST ALT Alkaline Phosphatase CK-MB (CK-2) CK-MB (CK-2) Rel Index Total Protein Albumin TSH Urine WBC (Auto) Salicylates 03/09/17 03/10/17 03/10/17 23:58 05:09 05:09 WBC RBC Hgb 10.3 L Hct 30.5 L MCV 78 L MCH 26 L RDW 17.9 H Plt Count Lymph % (Auto) [place] % (Auto) 10.0 H Eos % (Auto) 6.0 H [place] # Seg Neutrophils % Seg Neuts % (Manual) Lymphocytes % (Manual) Seg Neutrophils # Seg Neutrophils # Man Lymphocytes # (Manual) APTT POC ABG pH ABG pH POC ABG pCO2 POC ABG pO2 ABG pO2 ABG HCO3 ABG Base Excess ABG Hemoglobin VBG pH Oxyhemoglobin Sodium 132 L Potassium Chloride 92.2 L Carbon Dioxide BUN 33 H Creatinine 0.5 L Glucose 50 L POC Glucose 167 H Lactic Acid Calcium AST ALT Alkaline Phosphatase CK-MB (CK-2) CK-MB (CK-2) Rel Index Total Protein Albumin TSH Urine WBC (Auto) Salicylates 03/10/17 03/10/17 03/10/17 05:33 05:34 11:48 WBC RBC Hgb Hct MCV MCH RDW Plt Count Lymph % (Auto) [place] % (Auto) Eos % (Auto) [place] # Seg Neutrophils % Seg Neuts % (Manual) Lymphocytes % (Manual) Seg Neutrophils # Seg Neutrophils # Man Lymphocytes # (Manual) APTT POC ABG pH ABG pH POC ABG pCO2 POC ABG pO2 ABG pO2 ABG HCO3 ABG Base Excess ABG Hemoglobin VBG pH Oxyhemoglobin Sodium Potassium Chloride Carbon Dioxide BUN Creatinine Glucose POC Glucose 52 L 53 L 148 H Lactic Acid Calcium AST ALT Alkaline Phosphatase CK-MB (CK-2) CK-MB (CK-2) Rel Index Total Protein Albumin TSH Urine WBC (Auto) Salicylates 03/10/17 03/10/17 03/11/17 17:53 23:47 05:18 WBC RBC Hgb Hct MCV MCH RDW Plt Count Lymph % (Auto) [place] % (Auto) Eos % (Auto) [place] # Seg Neutrophils % Seg Neuts % (Manual) Lymphocytes % (Manual) Seg Neutrophils # Seg Neutrophils # Man Lymphocytes # (Manual) APTT POC ABG pH ABG pH POC ABG pCO2 POC ABG pO2 ABG pO2 ABG HCO3 ABG Base Excess ABG Hemoglobin VBG pH Oxyhemoglobin Sodium Potassium Chloride Carbon Dioxide BUN Creatinine Glucose POC Glucose 189 H 398 H 126 H Lactic Acid Calcium AST ALT Alkaline Phosphatase CK-MB (CK-2) CK-MB (CK-2) Rel Index Total Protein Albumin TSH Urine WBC (Auto) Salicylates 03/11/17 03/11/17 03/11/17 11:53 17:30 23:10 WBC RBC Hgb Hct MCV MCH RDW Plt Count Lymph % (Auto) [place] % (Auto) Eos % (Auto) [place] # Seg Neutrophils % Seg Neuts % (Manual) Lymphocytes % (Manual) Seg Neutrophils # Seg Neutrophils # Man Lymphocytes # (Manual) APTT POC ABG pH ABG pH POC ABG pCO2 POC ABG pO2 ABG pO2 ABG HCO3 ABG Base Excess ABG Hemoglobin VBG pH Oxyhemoglobin Sodium Potassium Chloride Carbon Dioxide BUN Creatinine Glucose POC Glucose 198 H 142 H 244 H Lactic Acid Calcium AST ALT Alkaline Phosphatase CK-MB (CK-2) CK-MB (CK-2) Rel Index Total Protein Albumin TSH Urine WBC (Auto) Salicylates 03/12/17 03/12/17 03/12/17 04:36 11:49 17:23 WBC RBC Hgb Hct MCV MCH RDW Plt Count Lymph % (Auto) [place] % (Auto) Eos % (Auto) [place] # Seg Neutrophils % Seg Neuts % (Manual) Lymphocytes % (Manual) Seg Neutrophils # Seg Neutrophils # Man Lymphocytes # (Manual) APTT POC ABG pH ABG pH POC ABG pCO2 POC ABG pO2 ABG pO2 ABG HCO3 ABG Base Excess ABG Hemoglobin VBG pH Oxyhemoglobin Sodium Potassium Chloride Carbon Dioxide BUN Creatinine Glucose POC Glucose 205 H 197 H 209 H Lactic Acid Calcium AST ALT Alkaline Phosphatase CK-MB (CK-2) CK-MB (CK-2) Rel Index Total Protein Albumin TSH Urine WBC (Auto) Salicylates 03/12/17 03/13/17 03/13/17 23:51 05:32 11:43 WBC RBC Hgb Hct MCV MCH RDW Plt Count Lymph % (Auto) [place] % (Auto) Eos % (Auto) [place] # Seg Neutrophils % Seg Neuts % (Manual) Lymphocytes % (Manual) Seg Neutrophils # Seg Neutrophils # Man Lymphocytes # (Manual) APTT POC ABG pH ABG pH POC ABG pCO2 POC ABG pO2 ABG pO2 ABG HCO3 ABG Base Excess ABG Hemoglobin VBG pH Oxyhemoglobin Sodium Potassium Chloride Carbon Dioxide BUN Creatinine Glucose POC Glucose 210 H 154 H 164 H Lactic Acid Calcium AST ALT Alkaline Phosphatase CK-MB (CK-2) CK-MB (CK-2) Rel Index Total Protein Albumin TSH Urine WBC (Auto) Salicylates 03/13/17 03/13/17 03/14/17 17:11 23:26 05:42 WBC RBC Hgb Hct MCV MCH RDW Plt Count Lymph % (Auto) [place] % (Auto) Eos % (Auto) [place] # Seg Neutrophils % Seg Neuts % (Manual) Lymphocytes % (Manual) Seg Neutrophils # Seg Neutrophils # Man Lymphocytes # (Manual) APTT POC ABG pH ABG pH POC ABG pCO2 POC ABG pO2 ABG pO2 ABG HCO3 ABG Base Excess ABG Hemoglobin VBG pH Oxyhemoglobin Sodium Potassium Chloride Carbon Dioxide BUN Creatinine Glucose POC Glucose 195 H 240 H 230 H Lactic Acid Calcium AST ALT Alkaline Phosphatase CK-MB (CK-2) CK-MB (CK-2) Rel Index Total Protein Albumin TSH Urine WBC (Auto) Salicylates 03/14/17 03/14/17 03/14/17 14:04 17:34 23:42 WBC RBC Hgb Hct MCV MCH RDW Plt Count Lymph % (Auto) [place] % (Auto) Eos % (Auto) [place] # Seg Neutrophils % Seg Neuts % (Manual) Lymphocytes % (Manual) Seg Neutrophils # Seg Neutrophils # Man Lymphocytes # (Manual) APTT POC ABG pH ABG pH POC ABG pCO2 POC ABG pO2 ABG pO2 ABG HCO3 ABG Base Excess ABG Hemoglobin VBG pH Oxyhemoglobin Sodium Potassium Chloride Carbon Dioxide BUN Creatinine Glucose POC Glucose 227 H 186 H 225 H Lactic Acid Calcium AST ALT Alkaline Phosphatase CK-MB (CK-2) CK-MB (CK-2) Rel Index Total Protein Albumin TSH Urine WBC (Auto) Salicylates 03/15/17 03/15/17 03/15/17 05:21 17:13 21:37 WBC RBC Hgb Hct MCV MCH RDW Plt Count Lymph % (Auto) [place] % (Auto) Eos % (Auto) [place] # Seg Neutrophils % Seg Neuts % (Manual) Lymphocytes % (Manual) Seg Neutrophils # Seg Neutrophils # Man Lymphocytes # (Manual) APTT POC ABG pH ABG pH POC ABG pCO2 POC ABG pO2 ABG pO2 ABG HCO3 ABG Base Excess ABG Hemoglobin VBG pH Oxyhemoglobin Sodium Potassium Chloride Carbon Dioxide BUN Creatinine Glucose POC Glucose 244 H 203 H 216 H Lactic Acid Calcium AST ALT Alkaline Phosphatase CK-MB (CK-2) CK-MB (CK-2) Rel Index Total Protein Albumin TSH Urine WBC (Auto) Salicylates 03/16/17 03/16/17 03/16/17 05:52 18:07 21:54 WBC RBC Hgb Hct MCV MCH RDW Plt Count Lymph % (Auto) [place] % (Auto) Eos % (Auto) [place] # Seg Neutrophils % Seg Neuts % (Manual) Lymphocytes % (Manual) Seg Neutrophils # Seg Neutrophils # Man Lymphocytes # (Manual) APTT POC ABG pH ABG pH POC ABG pCO2 POC ABG pO2 ABG pO2 ABG HCO3 ABG Base Excess ABG Hemoglobin VBG pH Oxyhemoglobin Sodium Potassium Chloride Carbon Dioxide BUN Creatinine Glucose POC Glucose 248 H 254 H 244 H Lactic Acid Calcium AST ALT Alkaline Phosphatase CK-MB (CK-2) CK-MB (CK-2) Rel Index Total Protein Albumin TSH Urine WBC (Auto) Salicylates 03/17/17 03/17/17 03/17/17 07:07 07:42 07:43 WBC RBC Hgb 9.7 L Hct 29.1 L MCV 78 L MCH 26 L RDW 17.4 H Plt Count Lymph % (Auto) [place] % (Auto) Eos % (Auto) [place] # Seg Neutrophils % Seg Neuts % (Manual) Lymphocytes % (Manual) Seg Neutrophils # Seg Neutrophils # Man Lymphocytes # (Manual) APTT POC ABG pH ABG pH POC ABG pCO2 POC ABG pO2 ABG pO2 ABG HCO3 ABG Base Excess ABG Hemoglobin VBG pH Oxyhemoglobin Sodium Potassium Chloride 96.6 L Carbon Dioxide BUN 30 H Creatinine 0.5 L Glucose 251 H POC Glucose 222 H Lactic Acid Calcium AST ALT Alkaline Phosphatase CK-MB (CK-2) CK-MB (CK-2) Rel Index Total Protein Albumin TSH Urine WBC (Auto) Salicylates 03/17/17 03/17/17 03/18/17 14:08 21:20 14:24 WBC RBC Hgb Hct MCV MCH RDW Plt Count Lymph % (Auto) [place] % (Auto) Eos % (Auto) [place] # Seg Neutrophils % Seg Neuts % (Manual) Lymphocytes % (Manual) Seg Neutrophils # Seg Neutrophils # Man Lymphocytes # (Manual) APTT POC ABG pH ABG pH POC ABG pCO2 POC ABG pO2 ABG pO2 ABG HCO3 ABG Base Excess ABG Hemoglobin VBG pH Oxyhemoglobin Sodium Potassium Chloride Carbon Dioxide BUN Creatinine Glucose POC Glucose 281 H 239 H 195 H Lactic Acid Calcium AST ALT Alkaline Phosphatase CK-MB (CK-2) CK-MB (CK-2) Rel Index Total Protein Albumin TSH Urine WBC (Auto) Salicylates 03/18/17 03/19/17 03/19/17 21:37 04:57 14:23 WBC RBC Hgb Hct MCV MCH RDW Plt Count Lymph % (Auto) [place] % (Auto) Eos % (Auto) [place] # Seg Neutrophils % Seg Neuts % (Manual) Lymphocytes % (Manual) Seg Neutrophils # Seg Neutrophils # Man Lymphocytes # (Manual) APTT POC ABG pH ABG pH POC ABG pCO2 POC ABG pO2 ABG pO2 ABG HCO3 ABG Base Excess ABG Hemoglobin VBG pH Oxyhemoglobin Sodium Potassium Chloride Carbon Dioxide BUN Creatinine Glucose POC Glucose 227 H 205 H 277 H Lactic Acid Calcium AST ALT Alkaline Phosphatase CK-MB (CK-2) CK-MB (CK-2) Rel Index Total Protein Albumin TSH Urine WBC (Auto) Salicylates 03/19/17 03/19/17 03/20/17 20:31 21:47 04:55 WBC RBC Hgb Hct MCV MCH RDW Plt Count Lymph % (Auto) [place] % (Auto) Eos % (Auto) [place] # Seg Neutrophils % Seg Neuts % (Manual) Lymphocytes % (Manual) Seg Neutrophils # Seg Neutrophils # Man Lymphocytes # (Manual) APTT POC ABG pH ABG pH POC ABG pCO2 POC ABG pO2 ABG pO2 ABG HCO3 ABG Base Excess ABG Hemoglobin VBG pH Oxyhemoglobin Sodium Potassium Chloride Carbon Dioxide BUN Creatinine Glucose POC Glucose 256 H 270 H 202 H Lactic Acid Calcium AST ALT Alkaline Phosphatase CK-MB (CK-2) CK-MB (CK-2) Rel Index Total Protein Albumin TSH Urine WBC (Auto) Salicylates 03/20/17 03/20/17 03/21/17 14:09 21:40 05:09 WBC RBC Hgb Hct MCV MCH RDW Plt Count Lymph % (Auto) [place] % (Auto) Eos % (Auto) [place] # Seg Neutrophils % Seg Neuts % (Manual) Lymphocytes % (Manual) Seg Neutrophils # Seg Neutrophils # Man Lymphocytes # (Manual) APTT POC ABG pH ABG pH POC ABG pCO2 POC ABG pO2 ABG pO2 ABG HCO3 ABG Base Excess ABG Hemoglobin VBG pH Oxyhemoglobin Sodium Potassium Chloride Carbon Dioxide BUN Creatinine Glucose POC Glucose 200 H 214 H 233 H Lactic Acid Calcium AST ALT Alkaline Phosphatase CK-MB (CK-2) CK-MB (CK-2) Rel Index Total Protein Albumin TSH Urine WBC (Auto) Salicylates 03/21/17 03/21/17 03/22/17 14:06 21:26 05:43 WBC RBC Hgb Hct MCV MCH RDW Plt Count Lymph % (Auto) [place] % (Auto) Eos % (Auto) [place] # Seg Neutrophils % Seg Neuts % (Manual) Lymphocytes % (Manual) Seg Neutrophils # Seg Neutrophils # Man Lymphocytes # (Manual) APTT POC ABG pH ABG pH POC ABG pCO2 POC ABG pO2 ABG pO2 ABG HCO3 ABG Base Excess ABG Hemoglobin VBG pH Oxyhemoglobin Sodium Potassium Chloride Carbon Dioxide BUN Creatinine Glucose POC Glucose 250 H 155 H 251 H Lactic Acid Calcium AST ALT Alkaline Phosphatase CK-MB (CK-2) CK-MB (CK-2) Rel Index Total Protein Albumin TSH Urine WBC (Auto) Salicylates 03/22/17 03/22/17 03/23/17 13:46 21:16 00:23 WBC RBC Hgb Hct MCV MCH RDW Plt Count Lymph % (Auto) [place] % (Auto) Eos % (Auto) [place] # Seg Neutrophils % Seg Neuts % (Manual) Lymphocytes % (Manual) Seg Neutrophils # Seg Neutrophils # Man Lymphocytes # (Manual) APTT POC ABG pH ABG pH POC ABG pCO2 POC ABG pO2 ABG pO2 ABG HCO3 ABG Base Excess ABG Hemoglobin VBG pH Oxyhemoglobin Sodium Potassium Chloride Carbon Dioxide BUN Creatinine Glucose POC Glucose 269 H 197 H 126 H Lactic Acid Calcium AST ALT Alkaline Phosphatase CK-MB (CK-2) CK-MB (CK-2) Rel Index Total Protein Albumin TSH Urine WBC (Auto) Salicylates 03/23/17 03/23/17 03/23/17 05:39 14:06 21:39 WBC RBC Hgb Hct MCV MCH RDW Plt Count Lymph % (Auto) [place] % (Auto) Eos % (Auto) [place] # Seg Neutrophils % Seg Neuts % (Manual) Lymphocytes % (Manual) Seg Neutrophils # Seg Neutrophils # Man Lymphocytes # (Manual) APTT POC ABG pH ABG pH POC ABG pCO2 POC ABG pO2 ABG pO2 ABG HCO3 ABG Base Excess ABG Hemoglobin VBG pH Oxyhemoglobin Sodium Potassium Chloride Carbon Dioxide BUN Creatinine Glucose POC Glucose 234 H 241 H 248 H Lactic Acid Calcium AST ALT Alkaline Phosphatase CK-MB (CK-2) CK-MB (CK-2) Rel Index Total Protein Albumin TSH Urine WBC (Auto) Salicylates 03/24/17 03/24/17 03/25/17 05:06 21:46 05:38 WBC RBC Hgb Hct MCV MCH RDW Plt Count Lymph % (Auto) [place] % (Auto) Eos % (Auto) [place] # Seg Neutrophils % Seg Neuts % (Manual) Lymphocytes % (Manual) Seg Neutrophils # Seg Neutrophils # Man Lymphocytes # (Manual) APTT POC ABG pH ABG pH POC ABG pCO2 POC ABG pO2 ABG pO2 ABG HCO3 ABG Base Excess ABG Hemoglobin VBG pH Oxyhemoglobin Sodium Potassium Chloride Carbon Dioxide BUN Creatinine Glucose POC Glucose 232 H 276 H 242 H Lactic Acid Calcium AST ALT Alkaline Phosphatase CK-MB (CK-2) CK-MB (CK-2) Rel Index Total Protein Albumin TSH Urine WBC (Auto) Salicylates 03/25/17 03/25/17 03/26/17 14:30 23:14 13:53 WBC RBC Hgb Hct MCV MCH RDW Plt Count Lymph % (Auto) [place] % (Auto) Eos % (Auto) [place] # Seg Neutrophils % Seg Neuts % (Manual) Lymphocytes % (Manual) Seg Neutrophils # Seg Neutrophils # Man Lymphocytes # (Manual) APTT POC ABG pH ABG pH POC ABG pCO2 POC ABG pO2 ABG pO2 ABG HCO3 ABG Base Excess ABG Hemoglobin VBG pH Oxyhemoglobin Sodium Potassium Chloride Carbon Dioxide BUN Creatinine Glucose POC Glucose 246 H 208 H 195 H Lactic Acid Calcium AST ALT Alkaline Phosphatase CK-MB (CK-2) CK-MB (CK-2) Rel Index Total Protein Albumin TSH Urine WBC (Auto) Salicylates 12/16/17 12/17/17 12/17/17 21:58 05:18 14:57 WBC RBC Hgb Hct MCV MCH RDW Plt Count Lymph % (Auto) [place] % (Auto) Eos % (Auto) [place] # Seg Neutrophils % Seg Neuts % (Manual) Lymphocytes % (Manual) Seg Neutrophils # Seg Neutrophils # Man Lymphocytes # (Manual) APTT POC ABG pH ABG pH POC ABG pCO2 POC ABG pO2 ABG pO2 ABG HCO3 ABG Base Excess ABG Hemoglobin VBG pH Oxyhemoglobin Sodium Potassium Chloride Carbon Dioxide BUN Creatinine Glucose POC Glucose 241 H 199 H 269 H Lactic Acid Calcium AST ALT Alkaline Phosphatase CK-MB (CK-2) CK-MB (CK-2) Rel Index Total Protein Albumin TSH Urine WBC (Auto) Salicylates 03/27/17 03/28/17 03/28/17 21:33 13:52 21:29 WBC RBC Hgb Hct MCV MCH RDW Plt Count Lymph % (Auto) [place] % (Auto) Eos % (Auto) [place] # Seg Neutrophils % Seg Neuts % (Manual) Lymphocytes % (Manual) Seg Neutrophils # Seg Neutrophils # Man Lymphocytes # (Manual) APTT POC ABG pH ABG pH POC ABG pCO2 POC ABG pO2 ABG pO2 ABG HCO3 ABG Base Excess ABG Hemoglobin VBG pH Oxyhemoglobin Sodium Potassium Chloride Carbon Dioxide BUN Creatinine Glucose POC Glucose 214 H 243 H 286 H Lactic Acid Calcium AST ALT Alkaline Phosphatase CK-MB (CK-2) CK-MB (CK-2) Rel Index Total Protein Albumin TSH Urine WBC (Auto) Salicylates 03/29/17 03/29/17 03/29/17 04:32 04:32 13:58 WBC RBC Hgb 10.6 L Hct 32.9 L MCV 78 L MCH 25 L RDW 17.6 H Plt Count Lymph % (Auto) 38.0 H [place] % (Auto) 9.7 H Eos % (Auto) [place] # Seg Neutrophils % Seg Neuts % (Manual) Lymphocytes % (Manual) Seg Neutrophils # Seg Neutrophils # Man Lymphocytes # (Manual) APTT POC ABG pH ABG pH POC ABG pCO2 POC ABG pO2 ABG pO2 ABG HCO3 ABG Base Excess ABG Hemoglobin VBG pH Oxyhemoglobin Sodium 132 L Potassium Chloride 94.0 L Carbon Dioxide BUN 28 H Creatinine 0.5 L Glucose 236 H POC Glucose 171 H Lactic Acid Calcium AST ALT 71 H Alkaline Phosphatase 391 H CK-MB (CK-2) CK-MB (CK-2) Rel Index Total Protein 8.3 H Albumin 2.9 L TSH Urine WBC (Auto) Salicylates 03/29/17 03/30/17 03/30/17 20:59 06:07 11:52 WBC RBC Hgb Hct MCV MCH RDW Plt Count Lymph % (Auto) [place] % (Auto) Eos % (Auto) [place] # Seg Neutrophils % Seg Neuts % (Manual) Lymphocytes % (Manual) Seg Neutrophils # Seg Neutrophils # Man Lymphocytes # (Manual) APTT POC ABG pH ABG pH POC ABG pCO2 POC ABG pO2 ABG pO2 ABG HCO3 ABG Base Excess ABG Hemoglobin VBG pH Oxyhemoglobin Sodium Potassium Chloride Carbon Dioxide BUN Creatinine Glucose POC Glucose 215 H 259 H 197 H Lactic Acid Calcium AST ALT Alkaline Phosphatase CK-MB (CK-2) CK-MB (CK-2) Rel Index Total Protein Albumin TSH Urine WBC (Auto) Salicylates 03/30/17 03/31/17 03/31/17 21:34 05:42 14:34 WBC RBC Hgb Hct MCV MCH RDW Plt Count Lymph % (Auto) [place] % (Auto) Eos % (Auto) [place] # Seg Neutrophils % Seg Neuts % (Manual) Lymphocytes % (Manual) Seg Neutrophils # Seg Neutrophils # Man Lymphocytes # (Manual) APTT POC ABG pH ABG pH POC ABG pCO2 POC ABG pO2 ABG pO2 ABG HCO3 ABG Base Excess ABG Hemoglobin VBG pH Oxyhemoglobin Sodium Potassium Chloride Carbon Dioxide BUN Creatinine Glucose POC Glucose 207 H 184 H 213 H Lactic Acid Calcium AST ALT Alkaline Phosphatase CK-MB (CK-2) CK-MB (CK-2) Rel Index Total Protein Albumin TSH Urine WBC (Auto) Salicylates 03/31/17 04/01/17 04/01/17 21:32 05:53 13:48 WBC RBC Hgb Hct MCV MCH RDW Plt Count Lymph % (Auto) [place] % (Auto) Eos % (Auto) [place] # Seg Neutrophils % Seg Neuts % (Manual) Lymphocytes % (Manual) Seg Neutrophils # Seg Neutrophils # Man Lymphocytes # (Manual) APTT POC ABG pH ABG pH POC ABG pCO2 POC ABG pO2 ABG pO2 ABG HCO3 ABG Base Excess ABG Hemoglobin VBG pH Oxyhemoglobin Sodium Potassium Chloride Carbon Dioxide BUN Creatinine Glucose POC Glucose 249 H 225 H 256 H Lactic Acid Calcium AST ALT Alkaline Phosphatase CK-MB (CK-2) CK-MB (CK-2) Rel Index Total Protein Albumin TSH Urine WBC (Auto) Salicylates 04/01/17 04/02/17 04/02/17 21:34 05:32 14:05 WBC RBC Hgb Hct MCV MCH RDW Plt Count Lymph % (Auto) [place] % (Auto) Eos % (Auto) [place] # Seg Neutrophils % Seg Neuts % (Manual) Lymphocytes % (Manual) Seg Neutrophils # Seg Neutrophils # Man Lymphocytes # (Manual) APTT POC ABG pH ABG pH POC ABG pCO2 POC ABG pO2 ABG pO2 ABG HCO3 ABG Base Excess ABG Hemoglobin VBG pH Oxyhemoglobin Sodium Potassium Chloride Carbon Dioxide BUN Creatinine Glucose POC Glucose 292 H 220 H 187 H Lactic Acid Calcium AST ALT Alkaline Phosphatase CK-MB (CK-2) CK-MB (CK-2) Rel Index Total Protein Albumin TSH Urine WBC (Auto) Salicylates 04/02/17 04/03/17 04/03/17 21:57 04:49 14:12 WBC RBC Hgb Hct MCV MCH RDW Plt Count Lymph % (Auto) [place] % (Auto) Eos % (Auto) [place] # Seg Neutrophils % Seg Neuts % (Manual) Lymphocytes % (Manual) Seg Neutrophils # Seg Neutrophils # Man Lymphocytes # (Manual) APTT POC ABG pH ABG pH POC ABG pCO2 POC ABG pO2 ABG pO2 ABG HCO3 ABG Base Excess ABG Hemoglobin VBG pH Oxyhemoglobin Sodium Potassium Chloride Carbon Dioxide BUN Creatinine Glucose POC Glucose 285 H 256 H 197 H Lactic Acid Calcium AST ALT Alkaline Phosphatase CK-MB (CK-2) CK-MB (CK-2) Rel Index Total Protein Albumin TSH Urine WBC (Auto) Salicylates 04/03/17 04/04/17 04/04/17 21:11 05:20 13:18 WBC RBC Hgb Hct MCV MCH RDW Plt Count Lymph % (Auto) [place] % (Auto) Eos % (Auto) [place] # Seg Neutrophils % Seg Neuts % (Manual) Lymphocytes % (Manual) Seg Neutrophils # Seg Neutrophils # Man Lymphocytes # (Manual) APTT POC ABG pH ABG pH POC ABG pCO2 POC ABG pO2 ABG pO2 ABG HCO3 ABG Base Excess ABG Hemoglobin VBG pH Oxyhemoglobin Sodium Potassium Chloride Carbon Dioxide BUN Creatinine Glucose POC Glucose 166 H 228 H 252 H Lactic Acid Calcium AST ALT Alkaline Phosphatase CK-MB (CK-2) CK-MB (CK-2) Rel Index Total Protein Albumin TSH Urine WBC (Auto) Salicylates 04/04/17 04/05/17 04/05/17 21:51 06:14 09:54 WBC RBC Hgb Hct MCV MCH RDW Plt Count Lymph % (Auto) [place] % (Auto) Eos % (Auto) [place] # Seg Neutrophils % Seg Neuts % (Manual) Lymphocytes % (Manual) Seg Neutrophils # Seg Neutrophils # Man Lymphocytes # (Manual) APTT POC ABG pH ABG pH POC ABG pCO2 POC ABG pO2 ABG pO2 ABG HCO3 ABG Base Excess ABG Hemoglobin VBG pH Oxyhemoglobin Sodium Potassium Chloride Carbon Dioxide BUN Creatinine Glucose POC Glucose 252 H 152 H 181 H Lactic Acid Calcium AST ALT Alkaline Phosphatase CK-MB (CK-2) CK-MB (CK-2) Rel Index Total Protein Albumin TSH Urine WBC (Auto) Salicylates 04/05/17 04/05/17 04/05/17 14:49 17:34 21:38 WBC RBC Hgb Hct MCV MCH RDW Plt Count Lymph % (Auto) [place] % (Auto) Eos % (Auto) [place] # Seg Neutrophils % Seg Neuts % (Manual) Lymphocytes % (Manual) Seg Neutrophils # Seg Neutrophils # Man Lymphocytes # (Manual) APTT POC ABG pH ABG pH POC ABG pCO2 POC ABG pO2 ABG pO2 ABG HCO3 ABG Base Excess ABG Hemoglobin VBG pH Oxyhemoglobin Sodium Potassium Chloride Carbon Dioxide BUN Creatinine Glucose POC Glucose 219 H 268 H 278 H Lactic Acid Calcium AST ALT Alkaline Phosphatase CK-MB (CK-2) CK-MB (CK-2) Rel Index Total Protein Albumin TSH Urine WBC (Auto) Salicylates 04/06/17 04/06/17 04/07/17 15:04 22:14 05:09 WBC RBC Hgb Hct MCV MCH RDW Plt Count Lymph % (Auto) [place] % (Auto) Eos % (Auto) [place] # Seg Neutrophils % Seg Neuts % (Manual) Lymphocytes % (Manual) Seg Neutrophils # Seg Neutrophils # Man Lymphocytes # (Manual) APTT POC ABG pH ABG pH POC ABG pCO2 POC ABG pO2 ABG pO2 ABG HCO3 ABG Base Excess ABG Hemoglobin VBG pH Oxyhemoglobin Sodium Potassium Chloride Carbon Dioxide BUN Creatinine Glucose POC Glucose 285 H 106 H 334 H Lactic Acid Calcium AST ALT Alkaline Phosphatase CK-MB (CK-2) CK-MB (CK-2) Rel Index Total Protein Albumin TSH Urine WBC (Auto) Salicylates 04/07/17 04/07/17 04/08/17 14:45 21:48 05:28 WBC RBC Hgb Hct MCV MCH RDW Plt Count Lymph % (Auto) [place] % (Auto) Eos % (Auto) [place] # Seg Neutrophils % Seg Neuts % (Manual) Lymphocytes % (Manual) Seg Neutrophils # Seg Neutrophils # Man Lymphocytes # (Manual) APTT POC ABG pH ABG pH POC ABG pCO2 POC ABG pO2 ABG pO2 ABG HCO3 ABG Base Excess ABG Hemoglobin VBG pH Oxyhemoglobin Sodium Potassium Chloride Carbon Dioxide BUN Creatinine Glucose POC Glucose 173 H 304 H 314 H Lactic Acid Calcium AST ALT Alkaline Phosphatase CK-MB (CK-2) CK-MB (CK-2) Rel Index Total Protein Albumin TSH Urine WBC (Auto) Salicylates 04/08/17 04/08/17 04/08/17 15:57 16:17 22:21 WBC RBC Hgb Hct MCV MCH RDW Plt Count Lymph % (Auto) [place] % (Auto) Eos % (Auto) [place] # Seg Neutrophils % Seg Neuts % (Manual) Lymphocytes % (Manual) Seg Neutrophils # Seg Neutrophils # Man Lymphocytes # (Manual) APTT POC ABG pH ABG pH POC ABG pCO2 POC ABG pO2 ABG pO2 ABG HCO3 ABG Base Excess ABG Hemoglobin VBG pH Oxyhemoglobin Sodium Potassium Chloride Carbon Dioxide BUN Creatinine Glucose POC Glucose 356 H 337 H 323 H Lactic Acid Calcium AST ALT Alkaline Phosphatase CK-MB (CK-2) CK-MB (CK-2) Rel Index Total Protein Albumin TSH Urine WBC (Auto) Salicylates 04/09/17 04/09/17 04/09/17 06:19 15:30 21:52 WBC RBC Hgb Hct MCV MCH RDW Plt Count Lymph % (Auto) [place] % (Auto) Eos % (Auto) [place] # Seg Neutrophils % Seg Neuts % (Manual) Lymphocytes % (Manual) Seg Neutrophils # Seg Neutrophils # Man Lymphocytes # (Manual) APTT POC ABG pH ABG pH POC ABG pCO2 POC ABG pO2 ABG pO2 ABG HCO3 ABG Base Excess ABG Hemoglobin VBG pH Oxyhemoglobin Sodium Potassium Chloride Carbon Dioxide BUN Creatinine Glucose POC Glucose 340 H 332 H 341 H Lactic Acid Calcium AST ALT Alkaline Phosphatase CK-MB (CK-2) CK-MB (CK-2) Rel Index Total Protein Albumin TSH Urine WBC (Auto) Salicylates 04/10/17 04/10/17 04/10/17 01:53 05:33 17:40 WBC RBC Hgb Hct MCV MCH RDW Plt Count Lymph % (Auto) [place] % (Auto) Eos % (Auto) [place] # Seg Neutrophils % Seg Neuts % (Manual) Lymphocytes % (Manual) Seg Neutrophils # Seg Neutrophils # Man Lymphocytes # (Manual) APTT POC ABG pH ABG pH POC ABG pCO2 POC ABG pO2 ABG pO2 ABG HCO3 ABG Base Excess ABG Hemoglobin VBG pH Oxyhemoglobin Sodium Potassium Chloride Carbon Dioxide BUN Creatinine Glucose POC Glucose 261 H 277 H 304 H Lactic Acid Calcium AST ALT Alkaline Phosphatase CK-MB (CK-2) CK-MB (CK-2) Rel Index Total Protein Albumin TSH Urine WBC (Auto) Salicylates 04/10/17 04/11/17 04/11/17 21:29 05:28 14:02 WBC RBC Hgb Hct MCV MCH RDW Plt Count Lymph % (Auto) [place] % (Auto) Eos % (Auto) [place] # Seg Neutrophils % Seg Neuts % (Manual) Lymphocytes % (Manual) Seg Neutrophils # Seg Neutrophils # Man Lymphocytes # (Manual) APTT POC ABG pH ABG pH POC ABG pCO2 POC ABG pO2 ABG pO2 ABG HCO3 ABG Base Excess ABG Hemoglobin VBG pH Oxyhemoglobin Sodium Potassium Chloride Carbon Dioxide BUN Creatinine Glucose POC Glucose 361 H 204 H 236 H Lactic Acid Calcium AST ALT Alkaline Phosphatase CK-MB (CK-2) CK-MB (CK-2) Rel Index Total Protein Albumin TSH Urine WBC (Auto) Salicylates 04/11/17 04/12/17 04/12/17 21:43 05:00 11:53 WBC RBC Hgb Hct MCV MCH RDW Plt Count Lymph % (Auto) [place] % (Auto) Eos % (Auto) [place] # Seg Neutrophils % Seg Neuts % (Manual) Lymphocytes % (Manual) Seg Neutrophils # Seg Neutrophils # Man Lymphocytes # (Manual) APTT POC ABG pH ABG pH POC ABG pCO2 POC ABG pO2 ABG pO2 ABG HCO3 ABG Base Excess ABG Hemoglobin VBG pH Oxyhemoglobin Sodium Potassium Chloride Carbon Dioxide BUN Creatinine Glucose POC Glucose 287 H 294 H 265 H Lactic Acid Calcium AST ALT Alkaline Phosphatase CK-MB (CK-2) CK-MB (CK-2) Rel Index Total Protein Albumin TSH Urine WBC (Auto) Salicylates 04/12/17 04/12/17 04/13/17 21:21 23:44 06:05 WBC RBC Hgb Hct MCV MCH RDW Plt Count Lymph % (Auto) [place] % (Auto) Eos % (Auto) [place] # Seg Neutrophils % Seg Neuts % (Manual) Lymphocytes % (Manual) Seg Neutrophils # Seg Neutrophils # Man Lymphocytes # (Manual) APTT POC ABG pH ABG pH POC ABG pCO2 POC ABG pO2 ABG pO2 ABG HCO3 ABG Base Excess ABG Hemoglobin VBG pH Oxyhemoglobin Sodium Potassium Chloride Carbon Dioxide BUN Creatinine Glucose POC Glucose 289 H 348 H 326 H Lactic Acid Calcium AST ALT Alkaline Phosphatase CK-MB (CK-2) CK-MB (CK-2) Rel Index Total Protein Albumin TSH Urine WBC (Auto) Salicylates 04/13/17 04/13/17 04/14/17 13:54 21:15 05:49 WBC RBC Hgb Hct MCV MCH RDW Plt Count Lymph % (Auto) [place] % (Auto) Eos % (Auto) [place] # Seg Neutrophils % Seg Neuts % (Manual) Lymphocytes % (Manual) Seg Neutrophils # Seg Neutrophils # Man Lymphocytes # (Manual) APTT POC ABG pH ABG pH POC ABG pCO2 POC ABG pO2 ABG pO2 ABG HCO3 ABG Base Excess ABG Hemoglobin VBG pH Oxyhemoglobin Sodium Potassium Chloride Carbon Dioxide BUN Creatinine Glucose POC Glucose 326 H 263 H 319 H Lactic Acid Calcium AST ALT Alkaline Phosphatase CK-MB (CK-2) CK-MB (CK-2) Rel Index Total Protein Albumin TSH Urine WBC (Auto) Salicylates 04/14/17 04/14/17 04/15/17 13:26 23:13 14:24 WBC RBC Hgb Hct MCV MCH RDW Plt Count Lymph % (Auto) [place] % (Auto) Eos % (Auto) [place] # Seg Neutrophils % Seg Neuts % (Manual) Lymphocytes % (Manual) Seg Neutrophils # Seg Neutrophils # Man Lymphocytes # (Manual) APTT POC ABG pH ABG pH POC ABG pCO2 POC ABG pO2 ABG pO2 ABG HCO3 ABG Base Excess ABG Hemoglobin VBG pH Oxyhemoglobin Sodium Potassium Chloride Carbon Dioxide BUN Creatinine Glucose POC Glucose 207 H 365 H 308 H Lactic Acid Calcium AST ALT Alkaline Phosphatase CK-MB (CK-2) CK-MB (CK-2) Rel Index Total Protein Albumin TSH Urine WBC (Auto) Salicylates 04/15/17 04/15/17 04/15/17 21:00 22:18 23:12 WBC RBC Hgb Hct MCV MCH RDW Plt Count Lymph % (Auto) [place] % (Auto) Eos % (Auto) [place] # Seg Neutrophils % Seg Neuts % (Manual) Lymphocytes % (Manual) Seg Neutrophils # Seg Neutrophils # Man Lymphocytes # (Manual) APTT POC ABG pH ABG pH POC ABG pCO2 POC ABG pO2 ABG pO2 ABG HCO3 ABG Base Excess ABG Hemoglobin VBG pH Oxyhemoglobin Sodium Potassium Chloride Carbon Dioxide BUN Creatinine Glucose POC Glucose 407 H 287 H 325 H Lactic Acid Calcium AST ALT Alkaline Phosphatase CK-MB (CK-2) CK-MB (CK-2) Rel Index Total Protein Albumin TSH Urine WBC (Auto) Salicylates 04/16/17 04/16/17 04/16/17 05:30 10:07 14:26 WBC RBC Hgb Hct MCV MCH RDW Plt Count Lymph % (Auto) [place] % (Auto) Eos % (Auto) [place] # Seg Neutrophils % Seg Neuts % (Manual) Lymphocytes % (Manual) Seg Neutrophils # Seg Neutrophils # Man Lymphocytes # (Manual) APTT POC ABG pH ABG pH POC ABG pCO2 POC ABG pO2 ABG pO2 ABG HCO3 ABG Base Excess ABG Hemoglobin VBG pH Oxyhemoglobin Sodium Potassium Chloride Carbon Dioxide BUN Creatinine Glucose POC Glucose 304 H 217 H 344 H Lactic Acid Calcium AST ALT Alkaline Phosphatase CK-MB (CK-2) CK-MB (CK-2) Rel Index Total Protein Albumin TSH Urine WBC (Auto) Salicylates 04/16/17 04/17/17 04/17/17 21:25 05:12 14:19 WBC RBC Hgb Hct MCV MCH RDW Plt Count Lymph % (Auto) [place] % (Auto) Eos % (Auto) [place] # Seg Neutrophils % Seg Neuts % (Manual) Lymphocytes % (Manual) Seg Neutrophils # Seg Neutrophils # Man Lymphocytes # (Manual) APTT POC ABG pH ABG pH POC ABG pCO2 POC ABG pO2 ABG pO2 ABG HCO3 ABG Base Excess ABG Hemoglobin VBG pH Oxyhemoglobin Sodium Potassium Chloride Carbon Dioxide BUN Creatinine Glucose POC Glucose 305 H 233 H 324 H Lactic Acid Calcium AST ALT Alkaline Phosphatase CK-MB (CK-2) CK-MB (CK-2) Rel Index Total Protein Albumin TSH Urine WBC (Auto) Salicylates 04/17/17 04/18/17 04/18/17 21:42 06:21 14:08 WBC RBC Hgb Hct MCV MCH RDW Plt Count Lymph % (Auto) [place] % (Auto) Eos % (Auto) [place] # Seg Neutrophils % Seg Neuts % (Manual) Lymphocytes % (Manual) Seg Neutrophils # Seg Neutrophils # Man Lymphocytes # (Manual) APTT POC ABG pH ABG pH POC ABG pCO2 POC ABG pO2 ABG pO2 ABG HCO3 ABG Base Excess ABG Hemoglobin VBG pH Oxyhemoglobin Sodium Potassium Chloride Carbon Dioxide BUN Creatinine Glucose POC Glucose 270 H 308 H 290 H Lactic Acid Calcium AST ALT Alkaline Phosphatase CK-MB (CK-2) CK-MB (CK-2) Rel Index Total Protein Albumin TSH Urine WBC (Auto) Salicylates 04/18/17 04/19/17 04/19/17 21:50 05:20 13:59 WBC RBC Hgb Hct MCV MCH RDW Plt Count Lymph % (Auto) [place] % (Auto) Eos % (Auto) [place] # Seg Neutrophils % Seg Neuts % (Manual) Lymphocytes % (Manual) Seg Neutrophils # Seg Neutrophils # Man Lymphocytes # (Manual) APTT POC ABG pH ABG pH POC ABG pCO2 POC ABG pO2 ABG pO2 ABG HCO3 ABG Base Excess ABG Hemoglobin VBG pH Oxyhemoglobin Sodium Potassium Chloride Carbon Dioxide BUN Creatinine Glucose POC Glucose 167 H 372 H 321 H Lactic Acid Calcium AST ALT Alkaline Phosphatase CK-MB (CK-2) CK-MB (CK-2) Rel Index Total Protein Albumin TSH Urine WBC (Auto) Salicylates 04/19/17 04/20/17 04/20/17 21:16 14:18 21:34 WBC RBC Hgb Hct MCV MCH RDW Plt Count Lymph % (Auto) [place] % (Auto) Eos % (Auto) [place] # Seg Neutrophils % Seg Neuts % (Manual) Lymphocytes % (Manual) Seg Neutrophils # Seg Neutrophils # Man Lymphocytes # (Manual) APTT POC ABG pH ABG pH POC ABG pCO2 POC ABG pO2 ABG pO2 ABG HCO3 ABG Base Excess ABG Hemoglobin VBG pH Oxyhemoglobin Sodium Potassium Chloride Carbon Dioxide BUN Creatinine Glucose POC Glucose 182 H 218 H 121 H Lactic Acid Calcium AST ALT Alkaline Phosphatase CK-MB (CK-2) CK-MB (CK-2) Rel Index Total Protein Albumin TSH Urine WBC (Auto) Salicylates 04/21/17 04/21/17 04/21/17 00:08 05:16 12:41 WBC RBC Hgb Hct MCV MCH RDW Plt Count Lymph % (Auto) [place] % (Auto) Eos % (Auto) [place] # Seg Neutrophils % Seg Neuts % (Manual) Lymphocytes % (Manual) Seg Neutrophils # Seg Neutrophils # Man Lymphocytes # (Manual) APTT POC ABG pH ABG pH POC ABG pCO2 POC ABG pO2 ABG pO2 ABG HCO3 ABG Base Excess ABG Hemoglobin VBG pH Oxyhemoglobin Sodium Potassium Chloride Carbon Dioxide BUN Creatinine Glucose POC Glucose 128 H 120 H 216 H Lactic Acid Calcium AST ALT Alkaline Phosphatase CK-MB (CK-2) CK-MB (CK-2) Rel Index Total Protein Albumin TSH Urine WBC (Auto) Salicylates 04/21/17 04/22/17 04/22/17 23:40 14:12 23:38 WBC RBC Hgb Hct MCV MCH RDW Plt Count Lymph % (Auto) [place] % (Auto) Eos % (Auto) [place] # Seg Neutrophils % Seg Neuts % (Manual) Lymphocytes % (Manual) Seg Neutrophils # Seg Neutrophils # Man Lymphocytes # (Manual) APTT POC ABG pH ABG pH POC ABG pCO2 POC ABG pO2 ABG pO2 ABG HCO3 ABG Base Excess ABG Hemoglobin VBG pH Oxyhemoglobin Sodium Potassium Chloride Carbon Dioxide BUN Creatinine Glucose POC Glucose 157 H 242 H 117 H Lactic Acid Calcium AST ALT Alkaline Phosphatase CK-MB (CK-2) CK-MB (CK-2) Rel Index Total Protein Albumin TSH Urine WBC (Auto) Salicylates 04/23/17 04/23/17 04/24/17 05:18 14:01 03:24 WBC RBC Hgb Hct MCV MCH RDW Plt Count Lymph % (Auto) [place] % (Auto) Eos % (Auto) [place] # Seg Neutrophils % Seg Neuts % (Manual) Lymphocytes % (Manual) Seg Neutrophils # Seg Neutrophils # Man Lymphocytes # (Manual) APTT POC ABG pH ABG pH POC ABG pCO2 POC ABG pO2 ABG pO2 ABG HCO3 ABG Base Excess ABG Hemoglobin VBG pH Oxyhemoglobin Sodium Potassium Chloride Carbon Dioxide BUN Creatinine Glucose POC Glucose 163 H 57 L 177 H Lactic Acid Calcium AST ALT Alkaline Phosphatase CK-MB (CK-2) CK-MB (CK-2) Rel Index Total Protein Albumin TSH Urine WBC (Auto) Salicylates 04/24/17 04/24/17 04/24/17 04:00 04:00 06:33 WBC RBC Hgb 9.9 L Hct 30.0 L MCV 79 L MCH 26 L RDW 17.1 H Plt Count 625 H Lymph % (Auto) [place] % (Auto) 8.4 H Eos % (Auto) [place] # Seg Neutrophils % Seg Neuts % (Manual) Lymphocytes % (Manual) Seg Neutrophils # Seg Neutrophils # Man Lymphocytes # (Manual) APTT POC ABG pH ABG pH POC ABG pCO2 POC ABG pO2 ABG pO2 ABG HCO3 ABG Base Excess ABG Hemoglobin VBG pH Oxyhemoglobin Sodium 136 L Potassium Chloride 94.9 L Carbon Dioxide BUN 40 H Creatinine 0.6 L Glucose 176 H POC Glucose 230 H Lactic Acid Calcium AST 67 H ALT Alkaline Phosphatase 294 H CK-MB (CK-2) CK-MB (CK-2) Rel Index Total Protein 9.0 H Albumin 2.5 L TSH Urine WBC (Auto) Salicylates 04/24/17 04/25/17 04/25/17 13:50 00:22 02:55 WBC RBC 3.54 L Hgb 9.0 L Hct 27.9 L MCV 79 L MCH 26 L RDW 17.5 H Plt Count 574 H Lymph % (Auto) [place] % (Auto) 10.4 H Eos % (Auto) [place] # 1.0 H Seg Neutrophils % Seg Neuts % (Manual) Lymphocytes % (Manual) Seg Neutrophils # Seg Neutrophils # Man Lymphocytes # (Manual) APTT POC ABG pH ABG pH POC ABG pCO2 POC ABG pO2 ABG pO2 ABG HCO3 ABG Base Excess ABG Hemoglobin VBG pH Oxyhemoglobin Sodium Potassium Chloride Carbon Dioxide BUN Creatinine Glucose POC Glucose 116 H < 40 L Lactic Acid Calcium AST ALT Alkaline Phosphatase CK-MB (CK-2) CK-MB (CK-2) Rel Index Total Protein Albumin TSH Urine WBC (Auto) Salicylates 04/25/17 04/25/17 04/25/17 02:55 11:15 18:36 WBC RBC Hgb Hct MCV MCH RDW Plt Count Lymph % (Auto) [place] % (Auto) Eos % (Auto) [place] # Seg Neutrophils % Seg Neuts % (Manual) Lymphocytes % (Manual) Seg Neutrophils # Seg Neutrophils # Man Lymphocytes # (Manual) APTT POC ABG pH ABG pH POC ABG pCO2 POC ABG pO2 ABG pO2 ABG HCO3 ABG Base Excess ABG Hemoglobin VBG pH Oxyhemoglobin Sodium Potassium Chloride 96.2 L Carbon Dioxide BUN 39 H Creatinine 0.7 L Glucose 125 H POC Glucose 227 H 280 H Lactic Acid Calcium AST ALT Alkaline Phosphatase 247 H CK-MB (CK-2) CK-MB (CK-2) Rel Index Total Protein Albumin 2.7 L TSH Urine WBC (Auto) Salicylates 04/25/17 04/26/17 04/26/17 21:49 06:53 07:27 WBC RBC 3.61 L Hgb 9.1 L Hct 28.1 L MCV 78 L MCH 25 L RDW 17.4 H Plt Count 594 H Lymph % (Auto) [place] % (Auto) 9.2 H Eos % (Auto) [place] # 1.0 H Seg Neutrophils % 70.6 H Seg Neuts % (Manual) Lymphocytes % (Manual) Seg Neutrophils # Seg Neutrophils # Man Lymphocytes # (Manual) APTT POC ABG pH ABG pH POC ABG pCO2 POC ABG pO2 ABG pO2 ABG HCO3 ABG Base Excess ABG Hemoglobin VBG pH Oxyhemoglobin Sodium Potassium Chloride Carbon Dioxide BUN Creatinine Glucose POC Glucose 192 H 60 L Lactic Acid Calcium AST ALT Alkaline Phosphatase CK-MB (CK-2) CK-MB (CK-2) Rel Index Total Protein Albumin TSH Urine WBC (Auto) Salicylates 04/26/17 04/26/17 04/26/17 07:27 07:28 13:32 WBC RBC Hgb Hct MCV MCH RDW Plt Count Lymph % (Auto) [place] % (Auto) Eos % (Auto) [place] # Seg Neutrophils % Seg Neuts % (Manual) Lymphocytes % (Manual) Seg Neutrophils # Seg Neutrophils # Man Lymphocytes # (Manual) APTT POC ABG pH ABG pH POC ABG pCO2 POC ABG pO2 ABG pO2 ABG HCO3 ABG Base Excess ABG Hemoglobin VBG pH Oxyhemoglobin Sodium Potassium Chloride 95.0 L Carbon Dioxide BUN 42 H Creatinine 0.7 L Glucose 172 H POC Glucose 190 H 168 H Lactic Acid Calcium AST 56 H ALT Alkaline Phosphatase 274 H CK-MB (CK-2) CK-MB (CK-2) Rel Index Total Protein 8.9 H Albumin 2.7 L TSH Urine WBC (Auto) Salicylates 04/26/17 04/27/17 04/27/17 23:36 05:10 05:10 WBC RBC 3.49 L Hgb 8.7 L Hct 27.0 L MCV 77 L MCH 25 L RDW 17.4 H Plt Count 558 H Lymph % (Auto) [place] % (Auto) 9.6 H Eos % (Auto) [place] # Seg Neutrophils % Seg Neuts % (Manual) Lymphocytes % (Manual) Seg Neutrophils # Seg Neutrophils # Man Lymphocytes # (Manual) APTT POC ABG pH ABG pH POC ABG pCO2 POC ABG pO2 ABG pO2 ABG HCO3 ABG Base Excess ABG Hemoglobin VBG pH Oxyhemoglobin Sodium 133 L Potassium Chloride 93.5 L Carbon Dioxide BUN 40 H Creatinine 0.7 L Glucose 179 H POC Glucose 204 H Lactic Acid Calcium AST 73 H ALT 58 H Alkaline Phosphatase 294 H CK-MB (CK-2) CK-MB (CK-2) Rel Index Total Protein 8.7 H Albumin 2.4 L TSH Urine WBC (Auto) Salicylates 04/27/17 04/27/17 04/27/17 05:45 14:08 23:46 WBC RBC Hgb Hct MCV MCH RDW Plt Count Lymph % (Auto) [place] % (Auto) Eos % (Auto) [place] # Seg Neutrophils % Seg Neuts % (Manual) Lymphocytes % (Manual) Seg Neutrophils # Seg Neutrophils # Man Lymphocytes # (Manual) APTT POC ABG pH ABG pH POC ABG pCO2 POC ABG pO2 ABG pO2 ABG HCO3 ABG Base Excess ABG Hemoglobin VBG pH Oxyhemoglobin Sodium Potassium Chloride Carbon Dioxide BUN Creatinine Glucose POC Glucose 200 H 206 H 207 H Lactic Acid Calcium AST ALT Alkaline Phosphatase CK-MB (CK-2) CK-MB (CK-2) Rel Index Total Protein Albumin TSH Urine WBC (Auto) Salicylates 04/28/17 04/28/17 04/28/17 04:48 04:53 05:10 WBC RBC 3.48 L Hgb 8.8 L Hct 26.7 L MCV 77 L MCH 25 L RDW 17.0 H Plt Count 515 H Lymph % (Auto) [place] % (Auto) 8.4 H Eos % (Auto) [place] # Seg Neutrophils % 70.6 H Seg Neuts % (Manual) Lymphocytes % (Manual) Seg Neutrophils # Seg Neutrophils # Man Lymphocytes # (Manual) APTT POC ABG pH ABG pH POC ABG pCO2 POC ABG pO2 ABG pO2 ABG HCO3 ABG Base Excess ABG Hemoglobin VBG pH Oxyhemoglobin Sodium Potassium Chloride Carbon Dioxide BUN Creatinine Glucose POC Glucose 43 L 41 L Lactic Acid Calcium AST ALT Alkaline Phosphatase CK-MB (CK-2) CK-MB (CK-2) Rel Index Total Protein Albumin TSH Urine WBC (Auto) Salicylates 04/28/17 04/28/17 04/28/17 05:10 14:06 22:07 WBC RBC Hgb Hct MCV MCH RDW Plt Count Lymph % (Auto) [place] % (Auto) Eos % (Auto) [place] # Seg Neutrophils % Seg Neuts % (Manual) Lymphocytes % (Manual) Seg Neutrophils # Seg Neutrophils # Man Lymphocytes # (Manual) APTT POC ABG pH ABG pH POC ABG pCO2 POC ABG pO2 ABG pO2 ABG HCO3 ABG Base Excess ABG Hemoglobin VBG pH Oxyhemoglobin Sodium 136 L Potassium Chloride 95.2 L Carbon Dioxide BUN 42 H Creatinine Glucose 63 L POC Glucose 303 H 227 H Lactic Acid Calcium AST 45 H ALT Alkaline Phosphatase 271 H CK-MB (CK-2) CK-MB (CK-2) Rel Index Total Protein 8.9 H Albumin 2.5 L TSH Urine WBC (Auto) Salicylates 04/29/17 04/29/17 04/29/17 06:40 14:11 21:35 WBC RBC Hgb Hct MCV MCH RDW Plt Count Lymph % (Auto) [place] % (Auto) Eos % (Auto) [place] # Seg Neutrophils % Seg Neuts % (Manual) Lymphocytes % (Manual) Seg Neutrophils # Seg Neutrophils # Man Lymphocytes # (Manual) APTT POC ABG pH ABG pH POC ABG pCO2 POC ABG pO2 ABG pO2 ABG HCO3 ABG Base Excess ABG Hemoglobin VBG pH Oxyhemoglobin Sodium Potassium Chloride Carbon Dioxide BUN Creatinine Glucose POC Glucose 254 H 244 H 184 H Lactic Acid Calcium AST ALT Alkaline Phosphatase CK-MB (CK-2) CK-MB (CK-2) Rel Index Total Protein Albumin TSH Urine WBC (Auto) Salicylates 04/30/17 04/30/17 04/30/17 05:17 14:03 22:08 WBC RBC Hgb Hct MCV MCH RDW Plt Count Lymph % (Auto) [place] % (Auto) Eos % (Auto) [place] # Seg Neutrophils % Seg Neuts % (Manual) Lymphocytes % (Manual) Seg Neutrophils # Seg Neutrophils # Man Lymphocytes # (Manual) APTT POC ABG pH ABG pH POC ABG pCO2 POC ABG pO2 ABG pO2 ABG HCO3 ABG Base Excess ABG Hemoglobin VBG pH Oxyhemoglobin Sodium Potassium Chloride Carbon Dioxide BUN Creatinine Glucose POC Glucose 173 H 182 H 247 H Lactic Acid Calcium AST ALT Alkaline Phosphatase CK-MB (CK-2) CK-MB (CK-2) Rel Index Total Protein Albumin TSH Urine WBC (Auto) Salicylates 05/01/17 05/01/17 05/01/17 05:04 15:37 18:50 WBC RBC Hgb Hct MCV MCH RDW Plt Count Lymph % (Auto) [place] % (Auto) Eos % (Auto) [place] # Seg Neutrophils % Seg Neuts % (Manual) Lymphocytes % (Manual) Seg Neutrophils # Seg Neutrophils # Man Lymphocytes # (Manual) APTT POC ABG pH ABG pH POC ABG pCO2 POC ABG pO2 ABG pO2 ABG HCO3 ABG Base Excess ABG Hemoglobin VBG pH Oxyhemoglobin Sodium Potassium Chloride Carbon Dioxide BUN Creatinine Glucose POC Glucose 335 H 68 L 144 H Lactic Acid Calcium AST ALT Alkaline Phosphatase CK-MB (CK-2) CK-MB (CK-2) Rel Index Total Protein Albumin TSH Urine WBC (Auto) Salicylates 05/01/17 05/02/17 05/02/17 22:13 04:59 14:06 WBC RBC Hgb Hct MCV MCH RDW Plt Count Lymph % (Auto) [place] % (Auto) Eos % (Auto) [place] # Seg Neutrophils % Seg Neuts % (Manual) Lymphocytes % (Manual) Seg Neutrophils # Seg Neutrophils # Man Lymphocytes # (Manual) APTT POC ABG pH ABG pH POC ABG pCO2 POC ABG pO2 ABG pO2 ABG HCO3 ABG Base Excess ABG Hemoglobin VBG pH Oxyhemoglobin Sodium Potassium Chloride Carbon Dioxide BUN Creatinine Glucose POC Glucose 192 H 225 H 165 H Lactic Acid Calcium AST ALT Alkaline Phosphatase CK-MB (CK-2) CK-MB (CK-2) Rel Index Total Protein Albumin TSH Urine WBC (Auto) Salicylates 0105/03/17 05/03/17 21:20 05:16 16:56 WBC RBC Hgb Hct MCV MCH RDW Plt Count Lymph % (Auto) [place] % (Auto) Eos % (Auto) [place] # Seg Neutrophils % Seg Neuts % (Manual) Lymphocytes % (Manual) Seg Neutrophils # Seg Neutrophils # Man Lymphocytes # (Manual) APTT POC ABG pH ABG pH POC ABG pCO2 POC ABG pO2 ABG pO2 ABG HCO3 ABG Base Excess ABG Hemoglobin VBG pH Oxyhemoglobin Sodium Potassium Chloride Carbon Dioxide BUN Creatinine Glucose POC Glucose 181 H 323 H 125 H Lactic Acid Calcium AST ALT Alkaline Phosphatase CK-MB (CK-2) CK-MB (CK-2) Rel Index Total Protein Albumin TSH Urine WBC (Auto) Salicylates 05/03/17 05/04/17 05/04/17 21:46 05:01 14:24 WBC RBC Hgb Hct MCV MCH RDW Plt Count Lymph % (Auto) [place] % (Auto) Eos % (Auto) [place] # Seg Neutrophils % Seg Neuts % (Manual) Lymphocytes % (Manual) Seg Neutrophils # Seg Neutrophils # Man Lymphocytes # (Manual) APTT POC ABG pH ABG pH POC ABG pCO2 POC ABG pO2 ABG pO2 ABG HCO3 ABG Base Excess ABG Hemoglobin VBG pH Oxyhemoglobin Sodium Potassium Chloride Carbon Dioxide BUN Creatinine Glucose POC Glucose 210 H 360 H 219 H Lactic Acid Calcium AST ALT Alkaline Phosphatase CK-MB (CK-2) CK-MB (CK-2) Rel Index Total Protein Albumin TSH Urine WBC (Auto) Salicylates 05/04/17 05/05/17 05/05/17 21:39 01:58 05:13 WBC RBC Hgb Hct MCV MCH RDW Plt Count Lymph % (Auto) [place] % (Auto) Eos % (Auto) [place] # Seg Neutrophils % Seg Neuts % (Manual) Lymphocytes % (Manual) Seg Neutrophils # Seg Neutrophils # Man Lymphocytes # (Manual) APTT POC ABG pH ABG pH POC ABG pCO2 POC ABG pO2 ABG pO2 ABG HCO3 ABG Base Excess ABG Hemoglobin VBG pH Oxyhemoglobin Sodium Potassium Chloride Carbon Dioxide BUN Creatinine Glucose POC Glucose 126 H 175 H 267 H Lactic Acid Calcium AST ALT Alkaline Phosphatase CK-MB (CK-2) CK-MB (CK-2) Rel Index Total Protein Albumin TSH Urine WBC (Auto) Salicylates 05/05/17 05/05/17 05/05/17 12:19 14:11 21:18 WBC RBC Hgb Hct MCV MCH RDW Plt Count Lymph % (Auto) [place] % (Auto) Eos % (Auto) [place] # Seg Neutrophils % Seg Neuts % (Manual) Lymphocytes % (Manual) Seg Neutrophils # Seg Neutrophils # Man Lymphocytes # (Manual) APTT POC ABG pH ABG pH POC ABG pCO2 POC ABG pO2 ABG pO2 ABG HCO3 ABG Base Excess ABG Hemoglobin VBG pH Oxyhemoglobin Sodium Potassium Chloride Carbon Dioxide BUN Creatinine Glucose POC Glucose 221 H 205 H 156 H Lactic Acid Calcium AST ALT Alkaline Phosphatase CK-MB (CK-2) CK-MB (CK-2) Rel Index Total Protein Albumin TSH Urine WBC (Auto) Salicylates 05/06/17 05/06/17 05/06/17 06:02 15:26 21:43 WBC RBC Hgb Hct MCV MCH RDW Plt Count Lymph % (Auto) [place] % (Auto) Eos % (Auto) [place] # Seg Neutrophils % Seg Neuts % (Manual) Lymphocytes % (Manual) Seg Neutrophils # Seg Neutrophils # Man Lymphocytes # (Manual) APTT POC ABG pH ABG pH POC ABG pCO2 POC ABG pO2 ABG pO2 ABG HCO3 ABG Base Excess ABG Hemoglobin VBG pH Oxyhemoglobin Sodium Potassium Chloride Carbon Dioxide BUN Creatinine Glucose POC Glucose 263 H 143 H 145 H Lactic Acid Calcium AST ALT Alkaline Phosphatase CK-MB (CK-2) CK-MB (CK-2) Rel Index Total Protein Albumin TSH Urine WBC (Auto) Salicylates 05/07/17 05/07/17 05/07/17 05:52 21:46 21:49 WBC RBC Hgb Hct MCV MCH RDW Plt Count Lymph % (Auto) [place] % (Auto) Eos % (Auto) [place] # Seg Neutrophils % Seg Neuts % (Manual) Lymphocytes % (Manual) Seg Neutrophils # Seg Neutrophils # Man Lymphocytes # (Manual) APTT POC ABG pH ABG pH POC ABG pCO2 POC ABG pO2 ABG pO2 ABG HCO3 ABG Base Excess ABG Hemoglobin VBG pH Oxyhemoglobin Sodium Potassium Chloride Carbon Dioxide BUN Creatinine Glucose POC Glucose 242 H < 40 L < 40 L Lactic Acid Calcium AST ALT Alkaline Phosphatase CK-MB (CK-2) CK-MB (CK-2) Rel Index Total Protein Albumin TSH Urine WBC (Auto) Salicylates 05/07/17 05/08/17 05/09/17 22:41 06:14 00:02 WBC RBC Hgb Hct MCV MCH RDW Plt Count Lymph % (Auto) [place] % (Auto) Eos % (Auto) [place] # Seg Neutrophils % Seg Neuts % (Manual) Lymphocytes % (Manual) Seg Neutrophils # Seg Neutrophils # Man Lymphocytes # (Manual) APTT POC ABG pH ABG pH POC ABG pCO2 POC ABG pO2 ABG pO2 ABG HCO3 ABG Base Excess ABG Hemoglobin VBG pH Oxyhemoglobin Sodium Potassium Chloride Carbon Dioxide BUN Creatinine Glucose POC Glucose 183 H 329 H 130 H Lactic Acid Calcium AST ALT Alkaline Phosphatase CK-MB (CK-2) CK-MB (CK-2) Rel Index Total Protein Albumin TSH Urine WBC (Auto) Salicylates 05/09/17 05/09/17 05/09/17 06:08 14:06 21:44 WBC RBC Hgb Hct MCV MCH RDW Plt Count Lymph % (Auto) [place] % (Auto) Eos % (Auto) [place] # Seg Neutrophils % Seg Neuts % (Manual) Lymphocytes % (Manual) Seg Neutrophils # Seg Neutrophils # Man Lymphocytes # (Manual) APTT POC ABG pH ABG pH POC ABG pCO2 POC ABG pO2 ABG pO2 ABG HCO3 ABG Base Excess ABG Hemoglobin VBG pH Oxyhemoglobin Sodium Potassium Chloride Carbon Dioxide BUN Creatinine Glucose POC Glucose 241 H 251 H 198 H Lactic Acid Calcium AST ALT Alkaline Phosphatase CK-MB (CK-2) CK-MB (CK-2) Rel Index Total Protein Albumin TSH Urine WBC (Auto) Salicylates 05/10/17 05/10/17 05/10/17 05:18 14:44 21:53 WBC RBC Hgb Hct MCV MCH RDW Plt Count Lymph % (Auto) [place] % (Auto) Eos % (Auto) [place] # Seg Neutrophils % Seg Neuts % (Manual) Lymphocytes % (Manual) Seg Neutrophils # Seg Neutrophils # Man Lymphocytes # (Manual) APTT POC ABG pH ABG pH POC ABG pCO2 POC ABG pO2 ABG pO2 ABG HCO3 ABG Base Excess ABG Hemoglobin VBG pH Oxyhemoglobin Sodium Potassium Chloride Carbon Dioxide BUN Creatinine Glucose POC Glucose 166 H 224 H 171 H Lactic Acid Calcium AST ALT Alkaline Phosphatase CK-MB (CK-2) CK-MB (CK-2) Rel Index Total Protein Albumin TSH Urine WBC (Auto) Salicylates 05/11/17 05/11/17 05/11/17 05:45 13:44 21:42 WBC RBC Hgb Hct MCV MCH RDW Plt Count Lymph % (Auto) [place] % (Auto) Eos % (Auto) [place] # Seg Neutrophils % Seg Neuts % (Manual) Lymphocytes % (Manual) Seg Neutrophils # Seg Neutrophils # Man Lymphocytes # (Manual) APTT POC ABG pH ABG pH POC ABG pCO2 POC ABG pO2 ABG pO2 ABG HCO3 ABG Base Excess ABG Hemoglobin VBG pH Oxyhemoglobin Sodium Potassium Chloride Carbon Dioxide BUN Creatinine Glucose POC Glucose 199 H 150 H 163 H Lactic Acid Calcium AST ALT Alkaline Phosphatase CK-MB (CK-2) CK-MB (CK-2) Rel Index Total Protein Albumin TSH Urine WBC (Auto) Salicylates 05/12/17 05/12/17 05/12/17 06:03 13:59 21:22 WBC RBC Hgb Hct MCV MCH RDW Plt Count Lymph % (Auto) [place] % (Auto) Eos % (Auto) [place] # Seg Neutrophils % Seg Neuts % (Manual) Lymphocytes % (Manual) Seg Neutrophils # Seg Neutrophils # Man Lymphocytes # (Manual) APTT POC ABG pH ABG pH POC ABG pCO2 POC ABG pO2 ABG pO2 ABG HCO3 ABG Base Excess ABG Hemoglobin VBG pH Oxyhemoglobin Sodium Potassium Chloride Carbon Dioxide BUN Creatinine Glucose POC Glucose 147 H 243 H 116 H Lactic Acid Calcium AST ALT Alkaline Phosphatase CK-MB (CK-2) CK-MB (CK-2) Rel Index Total Protein Albumin TSH Urine WBC (Auto) Salicylates 05/13/17 05/13/17 05/13/17 05:28 13:49 21:29 WBC RBC Hgb Hct MCV MCH RDW Plt Count Lymph % (Auto) [place] % (Auto) Eos % (Auto) [place] # Seg Neutrophils % Seg Neuts % (Manual) Lymphocytes % (Manual) Seg Neutrophils # Seg Neutrophils # Man Lymphocytes # (Manual) APTT POC ABG pH ABG pH POC ABG pCO2 POC ABG pO2 ABG pO2 ABG HCO3 ABG Base Excess ABG Hemoglobin VBG pH Oxyhemoglobin Sodium Potassium Chloride Carbon Dioxide BUN Creatinine Glucose POC Glucose 213 H 224 H 379 H Lactic Acid Calcium AST ALT Alkaline Phosphatase CK-MB (CK-2) CK-MB (CK-2) Rel Index Total Protein Albumin TSH Urine WBC (Auto) Salicylates 05/14/17 05/14/17 05/14/17 05:17 13:35 21:23 WBC RBC Hgb Hct MCV MCH RDW Plt Count Lymph % (Auto) [place] % (Auto) Eos % (Auto) [place] # Seg Neutrophils % Seg Neuts % (Manual) Lymphocytes % (Manual) Seg Neutrophils # Seg Neutrophils # Man Lymphocytes # (Manual) APTT POC ABG pH ABG pH POC ABG pCO2 POC ABG pO2 ABG pO2 ABG HCO3 ABG Base Excess ABG Hemoglobin VBG pH Oxyhemoglobin Sodium Potassium Chloride Carbon Dioxide BUN Creatinine Glucose POC Glucose 234 H 242 H 218 H Lactic Acid Calcium AST ALT Alkaline Phosphatase CK-MB (CK-2) CK-MB (CK-2) Rel Index Total Protein Albumin TSH Urine WBC (Auto) Salicylates 05/15/17 05/15/17 05/16/17 04:58 13:53 01:34 WBC RBC Hgb Hct MCV MCH RDW Plt Count Lymph % (Auto) [place] % (Auto) Eos % (Auto) [place] # Seg Neutrophils % Seg Neuts % (Manual) Lymphocytes % (Manual) Seg Neutrophils # Seg Neutrophils # Man Lymphocytes # (Manual) APTT POC ABG pH ABG pH POC ABG pCO2 POC ABG pO2 ABG pO2 ABG HCO3 ABG Base Excess ABG Hemoglobin VBG pH Oxyhemoglobin Sodium Potassium Chloride Carbon Dioxide BUN Creatinine Glucose POC Glucose 310 H 193 H 263 H Lactic Acid Calcium AST ALT Alkaline Phosphatase CK-MB (CK-2) CK-MB (CK-2) Rel Index Total Protein Albumin TSH Urine WBC (Auto) Salicylates 05/16/17 05/16/17 05/16/17 06:03 14:36 21:59 WBC RBC Hgb Hct MCV MCH RDW Plt Count Lymph % (Auto) [place] % (Auto) Eos % (Auto) [place] # Seg Neutrophils % Seg Neuts % (Manual) Lymphocytes % (Manual) Seg Neutrophils # Seg Neutrophils # Man Lymphocytes # (Manual) APTT POC ABG pH ABG pH POC ABG pCO2 POC ABG pO2 ABG pO2 ABG HCO3 ABG Base Excess ABG Hemoglobin VBG pH Oxyhemoglobin Sodium Potassium Chloride Carbon Dioxide BUN Creatinine Glucose POC Glucose 330 H 272 H 198 H Lactic Acid Calcium AST ALT Alkaline Phosphatase CK-MB (CK-2) CK-MB (CK-2) Rel Index Total Protein Albumin TSH Urine WBC (Auto) Salicylates 05/17/17 05/17/17 05/18/17 05:48 13:59 05:27 WBC RBC Hgb Hct MCV MCH RDW Plt Count Lymph % (Auto) [place] % (Auto) Eos % (Auto) [place] # Seg Neutrophils % Seg Neuts % (Manual) Lymphocytes % (Manual) Seg Neutrophils # Seg Neutrophils # Man Lymphocytes # (Manual) APTT POC ABG pH ABG pH POC ABG pCO2 POC ABG pO2 ABG pO2 ABG HCO3 ABG Base Excess ABG Hemoglobin VBG pH Oxyhemoglobin Sodium Potassium Chloride Carbon Dioxide BUN Creatinine Glucose POC Glucose 204 H 229 H 152 H Lactic Acid Calcium AST ALT Alkaline Phosphatase CK-MB (CK-2) CK-MB (CK-2) Rel Index Total Protein Albumin TSH Urine WBC (Auto) Salicylates 05/18/17 05/18/17 05/19/17 14:16 21:27 04:59 WBC RBC Hgb Hct MCV MCH RDW Plt Count Lymph % (Auto) [place] % (Auto) Eos % (Auto) [place] # Seg Neutrophils % Seg Neuts % (Manual) Lymphocytes % (Manual) Seg Neutrophils # Seg Neutrophils # Man Lymphocytes # (Manual) APTT POC ABG pH ABG pH POC ABG pCO2 POC ABG pO2 ABG pO2 ABG HCO3 ABG Base Excess ABG Hemoglobin VBG pH Oxyhemoglobin Sodium Potassium Chloride Carbon Dioxide BUN Creatinine Glucose POC Glucose 217 H 202 H 131 H Lactic Acid Calcium AST ALT Alkaline Phosphatase CK-MB (CK-2) CK-MB (CK-2) Rel Index Total Protein Albumin TSH Urine WBC (Auto) Salicylates 05/19/17 05/20/17 05/20/17 14:57 00:11 05:45 WBC RBC Hgb Hct MCV MCH RDW Plt Count Lymph % (Auto) [place] % (Auto) Eos % (Auto) [place] # Seg Neutrophils % Seg Neuts % (Manual) Lymphocytes % (Manual) Seg Neutrophils # Seg Neutrophils # Man Lymphocytes # (Manual) APTT POC ABG pH ABG pH POC ABG pCO2 POC ABG pO2 ABG pO2 ABG HCO3 ABG Base Excess ABG Hemoglobin VBG pH Oxyhemoglobin Sodium Potassium Chloride Carbon Dioxide BUN Creatinine Glucose POC Glucose 216 H 197 H 195 H Lactic Acid Calcium AST ALT Alkaline Phosphatase CK-MB (CK-2) CK-MB (CK-2) Rel Index Total Protein Albumin TSH Urine WBC (Auto) Salicylates 05/20/17 05/20/17 05/21/17 13:29 22:11 05:43 WBC RBC Hgb Hct MCV MCH RDW Plt Count Lymph % (Auto) [place] % (Auto) Eos % (Auto) [place] # Seg Neutrophils % Seg Neuts % (Manual) Lymphocytes % (Manual) Seg Neutrophils # Seg Neutrophils # Man Lymphocytes # (Manual) APTT POC ABG pH ABG pH POC ABG pCO2 POC ABG pO2 ABG pO2 ABG HCO3 ABG Base Excess ABG Hemoglobin VBG pH Oxyhemoglobin Sodium Potassium Chloride Carbon Dioxide BUN Creatinine Glucose POC Glucose 138 H 242 H 228 H Lactic Acid Calcium AST ALT Alkaline Phosphatase CK-MB (CK-2) CK-MB (CK-2) Rel Index Total Protein Albumin TSH Urine WBC (Auto) Salicylates 05/21/17 05/21/17 05/22/17 14:06 21:49 05:31 WBC RBC Hgb Hct MCV MCH RDW Plt Count Lymph % (Auto) [place] % (Auto) Eos % (Auto) [place] # Seg Neutrophils % Seg Neuts % (Manual) Lymphocytes % (Manual) Seg Neutrophils # Seg Neutrophils # Man Lymphocytes # (Manual) APTT POC ABG pH ABG pH POC ABG pCO2 POC ABG pO2 ABG pO2 ABG HCO3 ABG Base Excess ABG Hemoglobin VBG pH Oxyhemoglobin Sodium Potassium Chloride Carbon Dioxide BUN Creatinine Glucose POC Glucose 191 H 166 H 184 H Lactic Acid Calcium AST ALT Alkaline Phosphatase CK-MB (CK-2) CK-MB (CK-2) Rel Index Total Protein Albumin TSH Urine WBC (Auto) Salicylates 05/22/17 05/22/17 05/23/17 14:03 21:45 05:41 WBC RBC Hgb Hct MCV MCH RDW Plt Count Lymph % (Auto) [place] % (Auto) Eos % (Auto) [place] # Seg Neutrophils % Seg Neuts % (Manual) Lymphocytes % (Manual) Seg Neutrophils # Seg Neutrophils # Man Lymphocytes # (Manual) APTT POC ABG pH ABG pH POC ABG pCO2 POC ABG pO2 ABG pO2 ABG HCO3 ABG Base Excess ABG Hemoglobin VBG pH Oxyhemoglobin Sodium Potassium Chloride Carbon Dioxide BUN Creatinine Glucose POC Glucose 206 H 178 H 206 H Lactic Acid Calcium AST ALT Alkaline Phosphatase CK-MB (CK-2) CK-MB (CK-2) Rel Index Total Protein Albumin TSH Urine WBC (Auto) Salicylates 05/23/17 05/23/17 05/24/17 14:09 22:48 05:21 WBC RBC Hgb Hct MCV MCH RDW Plt Count Lymph % (Auto) [place] % (Auto) Eos % (Auto) [place] # Seg Neutrophils % Seg Neuts % (Manual) Lymphocytes % (Manual) Seg Neutrophils # Seg Neutrophils # Man Lymphocytes # (Manual) APTT POC ABG pH ABG pH POC ABG pCO2 POC ABG pO2 ABG pO2 ABG HCO3 ABG Base Excess ABG Hemoglobin VBG pH Oxyhemoglobin Sodium Potassium Chloride Carbon Dioxide BUN Creatinine Glucose POC Glucose 148 H 181 H 162 H Lactic Acid Calcium AST ALT Alkaline Phosphatase CK-MB (CK-2) CK-MB (CK-2) Rel Index Total Protein Albumin TSH Urine WBC (Auto) Salicylates 05/24/17 05/24/17 05/25/17 13:32 21:55 06:49 WBC RBC Hgb Hct MCV MCH RDW Plt Count Lymph % (Auto) [place] % (Auto) Eos % (Auto) [place] # Seg Neutrophils % Seg Neuts % (Manual) Lymphocytes % (Manual) Seg Neutrophils # Seg Neutrophils # Man Lymphocytes # (Manual) APTT POC ABG pH ABG pH POC ABG pCO2 POC ABG pO2 ABG pO2 ABG HCO3 ABG Base Excess ABG Hemoglobin VBG pH Oxyhemoglobin Sodium Potassium Chloride Carbon Dioxide BUN Creatinine Glucose POC Glucose 216 H 144 H 151 H Lactic Acid Calcium AST ALT Alkaline Phosphatase CK-MB (CK-2) CK-MB (CK-2) Rel Index Total Protein Albumin TSH Urine WBC (Auto) Salicylates 05/25/17 05/25/17 05/26/17 15:32 21:58 05:46 WBC RBC Hgb Hct MCV MCH RDW Plt Count Lymph % (Auto) [place] % (Auto) Eos % (Auto) [place] # Seg Neutrophils % Seg Neuts % (Manual) Lymphocytes % (Manual) Seg Neutrophils # Seg Neutrophils # Man Lymphocytes # (Manual) APTT POC ABG pH ABG pH POC ABG pCO2 POC ABG pO2 ABG pO2 ABG HCO3 ABG Base Excess ABG Hemoglobin VBG pH Oxyhemoglobin Sodium Potassium Chloride Carbon Dioxide BUN Creatinine Glucose POC Glucose 136 H 160 H 225 H Lactic Acid Calcium AST ALT Alkaline Phosphatase CK-MB (CK-2) CK-MB (CK-2) Rel Index Total Protein Albumin TSH Urine WBC (Auto) Salicylates 05/26/17 05/27/17 05/27/17 22:32 05:52 14:47 WBC RBC Hgb Hct MCV MCH RDW Plt Count Lymph % (Auto) [place] % (Auto) Eos % (Auto) [place] # Seg Neutrophils % Seg Neuts % (Manual) Lymphocytes % (Manual) Seg Neutrophils # Seg Neutrophils # Man Lymphocytes # (Manual) APTT POC ABG pH ABG pH POC ABG pCO2 POC ABG pO2 ABG pO2 ABG HCO3 ABG Base Excess ABG Hemoglobin VBG pH Oxyhemoglobin Sodium Potassium Chloride Carbon Dioxide BUN Creatinine Glucose POC Glucose 161 H 197 H 117 H Lactic Acid Calcium AST ALT Alkaline Phosphatase CK-MB (CK-2) CK-MB (CK-2) Rel Index Total Protein Albumin TSH Urine WBC (Auto) Salicylates 05/27/17 05/28/17 05/28/17 21:49 05:54 06:49 WBC RBC Hgb Hct MCV MCH RDW Plt Count Lymph % (Auto) [place] % (Auto) Eos % (Auto) [place] # Seg Neutrophils % Seg Neuts % (Manual) Lymphocytes % (Manual) Seg Neutrophils # Seg Neutrophils # Man Lymphocytes # (Manual) APTT POC ABG pH ABG pH POC ABG pCO2 POC ABG pO2 ABG pO2 ABG HCO3 ABG Base Excess ABG Hemoglobin VBG pH Oxyhemoglobin Sodium Potassium Chloride Carbon Dioxide BUN Creatinine Glucose POC Glucose 148 H 60 L 59 L Lactic Acid Calcium AST ALT Alkaline Phosphatase CK-MB (CK-2) CK-MB (CK-2) Rel Index Total Protein Albumin TSH Urine WBC (Auto) Salicylates 05/28/17 05/28/17 05/28/17 14:32 16:04 21:43 WBC RBC Hgb Hct MCV MCH RDW Plt Count Lymph % (Auto) [place] % (Auto) Eos % (Auto) [place] # Seg Neutrophils % Seg Neuts % (Manual) Lymphocytes % (Manual) Seg Neutrophils # Seg Neutrophils # Man Lymphocytes # (Manual) APTT POC ABG pH ABG pH POC ABG pCO2 POC ABG pO2 ABG pO2 ABG HCO3 ABG Base Excess ABG Hemoglobin VBG pH Oxyhemoglobin Sodium Potassium Chloride Carbon Dioxide BUN Creatinine Glucose POC Glucose 55 L 109 H 235 H Lactic Acid Calcium AST ALT Alkaline Phosphatase CK-MB (CK-2) CK-MB (CK-2) Rel Index Total Protein Albumin TSH Urine WBC (Auto) Salicylates 05/29/17 05/29/17 05/29/17 06:14 13:23 22:46 WBC RBC Hgb Hct MCV MCH RDW Plt Count Lymph % (Auto) [place] % (Auto) Eos % (Auto) [place] # Seg Neutrophils % Seg Neuts % (Manual) Lymphocytes % (Manual) Seg Neutrophils # Seg Neutrophils # Man Lymphocytes # (Manual) APTT POC ABG pH ABG pH POC ABG pCO2 POC ABG pO2 ABG pO2 ABG HCO3 ABG Base Excess ABG Hemoglobin VBG pH Oxyhemoglobin Sodium Potassium Chloride Carbon Dioxide BUN Creatinine Glucose POC Glucose 260 H 173 H 151 H Lactic Acid Calcium AST ALT Alkaline Phosphatase CK-MB (CK-2) CK-MB (CK-2) Rel Index Total Protein Albumin TSH Urine WBC (Auto) Salicylates 05/30/17 05/30/17 05:20 13:56 WBC RBC Hgb Hct MCV MCH RDW Plt Count Lymph % (Auto) [place] % (Auto) Eos % (Auto) [place] # Seg Neutrophils % Seg Neuts % (Manual) Lymphocytes % (Manual) Seg Neutrophils # Seg Neutrophils # Man Lymphocytes # (Manual) APTT POC ABG pH ABG pH POC ABG pCO2 POC ABG pO2 ABG pO2 ABG HCO3 ABG Base Excess ABG Hemoglobin VBG pH Oxyhemoglobin Sodium Potassium Chloride Carbon Dioxide BUN Creatinine Glucose POC Glucose 250 H 187 H Lactic Acid Calcium AST ALT Alkaline Phosphatase CK-MB (CK-2) CK-MB (CK-2) Rel Index Total Protein Albumin TSH Urine WBC (Auto) Salicylates
[2017-06-01] MEDS: HumuLIN R SUB-Q SCH ×4 (06:04→21:32)
[2017-06-01] MEDS: PEPCID PO SCH ×2 (10:36→21:40)
[2017-06-01] MEDS: LEVEMIR (NF) SUB-Q SCH (10:37)
[2017-06-01] MEDS: HEPARIN SUB-Q SCH ×2 (10:37→21:40)
--- NOTE | 2017-06-02 09:18 | Progress Note ---
Assessment and Plan 51 YO Male with CKD,HTN, DM presents to ED after found down and unresponsive by his neighbor, who subsequently called EMS. Upon arrival, patient found unresponsive on the floor with a serum glucose of 21, patient has a known history of alcohol abuse and delirium tremens. The patient was administered D5 approximate 500 mls during transport without change in mental status/level of consciousness. Pt seen and evaluated in ED was was found to be unable to protect his airway. Pt intubated and placed on vent support. Pt found to have evidence of hypothyroidism. 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 very poor prognosis - Metabolic encephalopathy: Supportive care - Hypoglycemia/hypothermia, resolved - Acute respiratory failure mechanical ventilator greater than 96 hours: wean as tolerated. Pulm. following - Hyponatremia: corrected - Hypothyroidism: On levothyroxine - IDDM : continue with SSI - Anemia of chronic disease. will Tend - Hypertension: Controlled - Cont supportive care and current medication. Monitor vitals. Not weaniable and tach cannot be place per Pulm - Patient is DNR- needs guardianship from the state to give consent for further management, as has no family to give consent. We will check labs. Poor prognosis, Subjective Date of service: 06/02/17 Principal diagnosis: Acute respiratory failure,encephalopathy Interval history: Remains unresponsive. Consulted with patient's nurse. No overnight event reported to me by patient's nurse. Consultants as well as laboratory and radiological data reviewed. Objective - Exam Narrative Exam: Constitutional: Intubated on vent supported. In no distress Head: Normocephalic atraumatic Eyes: Pupils are equal round and reactive to light Nose: No enlarged turbinates, no septal deviation. Mouth: Moist mucous membranes. Neck: Supple no thyromegaly. No bruit. No JVD Heart: Regular rate and rhythm, S1-S2 abnormal. No rubs murmurs or gallop Lungs: Clear to auscultation bilaterally no rales or rhonchi Abdomen: Soft nontender both his upper extremities no edema orclubbing. Extremities: No edema no cyanosis and no clubbing. Neuro: Unresponsive . Skin: No rashes no hyperemic spots - Constitutional Vitals: Vital Signs - 12hr 06/01/17 06/01/17 06/01/17 22:00 22:18 23:41 Temperature Pulse Rate 72 71 73 Respiratory 12 13 Rate Blood Pressure 106/75 106/75 106/75 O2 Sat by Pulse 100 100 100 Oximetry 06/02/17 06/02/17 06/02/17 00:00 00:31 02:00 Temperature 97.0 F L Pulse Rate 74 73 Respiratory 13 12 Rate Blood Pressure 99/70 99/70 O2 Sat by Pulse 100 100 Oximetry 06/02/17 06/02/17 06/02/17 04:00 04:12 04:31 Temperature 97.8 F Pulse Rate 72 71 Respiratory 13 Rate Blood Pressure 99/70 99/70 O2 Sat by Pulse 100 Oximetry 06/02/17 06/02/17 06:00 07:28 Temperature Pulse Rate 69 74 Respiratory 14 Rate Blood Pressure 99/70 99/70 O2 Sat by Pulse 100 100 Oximetry - Labs CBC & Chem 7: 04/28/17 05:10 04/28/17 05:10 Labs: Abnormal lab results 06/01/17 06/01/17 06/02/17 Range/Units 13:10 21:34 05:15 POC Glucose 136 H 109 H 121 H (70-105)
[2017-06-02] MEDS: PEPCID PO SCH (09:35)
[2017-06-02] MEDS: HEPARIN SUB-Q SCH (09:35)
[2017-06-02] MEDS: LEVEMIR (NF) SUB-Q SCH (09:35)
[2017-06-02] MEDS: HumuLIN R SUB-Q SCH (16:20)
[2017-06-03] MEDS: HEPARIN SUB-Q SCH ×3 (00:51→23:09)
[2017-06-03] MEDS: PEPCID PO SCH ×3 (00:51→23:10)
--- NOTE | 2017-06-03 10:30 | Progress Note ---
Assessment and Plan 51 YO Male with CKD,HTN, DM presents to ED after found down and unresponsive by his neighbor, who subsequently called EMS. Upon arrival, patient found unresponsive on the floor with a serum glucose of 21, patient has a known history of alcohol abuse and delirium tremens. The patient was administered D5 approximate 500 mls during transport without change in mental status/level of consciousness. Pt seen and evaluated in ED was was found to be unable to protect his airway. Pt intubated and placed on vent support. Pt found to have evidence of hypothyroidism. 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 very poor prognosis - Metabolic encephalopathy: Supportive care - Hypoglycemia/hypothermia, resolved - Acute respiratory failure mechanical ventilator greater than 96 hours: wean as tolerated. Pulm. following - Hyponatremia: corrected - Hypothyroidism: On levothyroxine - IDDM : continue with SSI - Anemia of chronic disease. will Tend - Hypertension: Controlled - Cont supportive care and current medication. Monitor vitals. Not weaniable and tach cannot be place per Pulmoniolgist - Patient is DNR- needs guardianship from the state to give consent for further management, as has no family to give consent. We will check labs. Poor prognosis, Subjective Date of service: 06/03/17 Principal diagnosis: Acute respiratory failure,encephalopathy Interval history: Remains unresponsive. Consulted with patient's nurse. No overnight event reported to me by patient's nurse. Consultants as well as laboratory and radiological data reviewed. Objective - Exam Narrative Exam: Constitutional: Intubated on vent supported. In no distress Head: Normocephalic atraumatic Eyes: Pupils are equal round and reactive to light Nose: No enlarged turbinates, no septal deviation. Mouth: Moist mucous membranes. Neck: Supple no thyromegaly. No bruit. No JVD Heart: Regular rate and rhythm, S1-S2 abnormal. No rubs murmurs or gallop Lungs: Clear to auscultation bilaterally no rales or rhonchi Abdomen: Soft nontender both his upper extremities no edema orclubbing. Extremities: No edema no cyanosis and no clubbing. Neuro: Unresponsive . Skin: No rashes no hyperemic spots - Constitutional Vitals: Vital Signs - 12hr 06/02/17 06/03/17 06/03/17 23:30 00:00 00:46 Temperature 97.8 F 97.5 F L Pulse Rate 69 65 Pulse Rate [ 65 Left] Respiratory 12 Rate Respiratory 12 Rate [ Generalized] Blood Pressure 102/70 102/70 O2 Sat by Pulse 100 100 Oximetry 06/03/17 06/03/17 06/03/17 03:30 04:05 05:23 Temperature 97.9 F Pulse Rate 63 Pulse Rate [ Left] Respiratory 12 Rate Respiratory Rate [ Generalized] Blood Pressure 102/70 O2 Sat by Pulse 100 100 Oximetry 06/03/17 08:43 Temperature Pulse Rate 64 Pulse Rate [ Left] Respiratory Rate Respiratory Rate [ Generalized] Blood Pressure 102/72 O2 Sat by Pulse 100 Oximetry - Labs CBC & Chem 7: 04/28/17 05:10 04/28/17 05:10 Labs: Abnormal lab results 06/02/17 06/03/17 Range/Units 15:44 00:49 POC Glucose 229 H 134 H (70-105)
[2017-06-03] MEDS: LEVEMIR (NF) SUB-Q SCH (10:41)
[2017-06-03] MEDS: HumuLIN R SUB-Q SCH ×2 (16:41→23:17)
[2017-06-04] MEDS: LEVEMIR (NF) SUB-Q SCH (09:13)
[2017-06-04] MEDS: HEPARIN SUB-Q SCH ×2 (09:13→21:41)
[2017-06-04] MEDS: PEPCID PO SCH ×2 (09:14→21:40)
--- NOTE | 2017-06-04 10:25 | Progress Note ---
Assessment and Plan Assessment and plan: Hypoglycemic brain injury. Patient was found hypoglycemic. He is now in coma, vegetative state, Unresponsive Persistent vegetative state. Supportive care Metabolic encephalopathy due to hypoglycemia Hypoglycemia/hypothermia, resolved Acute respiratory failure. on ventilator. Hyponatremia. Now resolved. Hypothyroidism Diabetes mellitus type 2. Check fingerstick glucose q 6h. Continue Levemir subcut daily Hypertension. BP stable Leukocytosis due to UTI. UTI with ESBL. Disposition. Comfort care, no escalation of care; would not check any further labs, CXRs, or cultures; would not work him up for infections in setting of fever, only treat w / Tylenol for palliative purposes; would not place another IV either Poor prognosis History Interval history: no new issues overnight 51 YO Male with CKD,HTN, DM presents to ED for evaluation. Pt unable to provide history. Pt history taken from ED staff, and medical records. Pt found down and unresponsive by his neighbor, who subsequently called EMS. Upon arrival, patient found unresponsive on the floor with a serum glucose of 21, and covered with ants with insulin syringes around him and a bottle of atenolol which still had many pills remaining, patient has a known history of alcohol abuse and delirium tremens. The patient was administered D5 approximate 500 mls during transport without change in mental status/level of consciousness. Pt seen and evaluated in ED was was found to be unable to protect his airway. Pt intubated and placed on vent support. Pt found to have evidence of hypothyroidism. He was started on Synthroid. He has since been in the ICU. The patient continued to deteriorate. He is in this grade 4 coma, brain imaging does not show any reversible cause. The patient remains in a persistent vegetative states. Sepsis has been ruled out. senior administrative services officer try to locate family, even spoke to the family who he lives with. They themselves were unaware of any family members. After ethics committee meeting on the patient, the decision was made to make him DO NOT RESUSCITATE and to transfer him to hospice. Guardianship has been obtained but no authority to withdraw care. Continue supportative care. No new clinical change Hospitalist Physical - Constitutional Vitals: Temp Pulse Resp BP Pulse Ox 100.2 F H 79 12 111/75 100 06/04/17 08:00 06/04/17 07:46 06/04/17 06:14 06/04/17 07:46 06/04/17 07:46 General appearance: Present: no acute distress - EENT Eyes: Present: PERRL, EOM intact ENT: hearing intact, clear oral mucosa, dentition normal - Neck Neck: Present: supple, normal ROM - Respiratory Respiratory effort: normal Respiratory: bilateral: CTA - Cardiovascular Rhythm: regular Heart Sounds: Present: S1 & S2. Absent: gallop, rub - Extremities Extremities: no ischemia, No edema, Full ROM - Abdominal General gastrointestinal: soft, non-tender, non-distended, normal bowel sounds - Integumentary Integumentary: Present: clear, warm, dry - Neurologic Neurologic: CNII-XII intact, moves all extremities Results - Labs CBC & Chem 7: 04/28/17 05:10 04/28/17 05:10 Labs: Laboratory Last Values WBC 9.3 K/mm3 (4.5-11.0) 04/28/17 05:10 RBC 3.48 M/mm3 (3.65-5.03) L 04/28/17 05:10 Hgb 8.8 gm/dl (11.8-15.2) L 04/28/17 05:10 Hct 26.7 % (35.5-45.6) L 04/28/17 05:10 MCV 77 fl (84-94) L 04/28/17 05:10 MCH 25 pg (28-32) L 04/28/17 05:10 MCHC 33 % (32-34) 04/28/17 05:10 RDW 17.0 % (13.2-15.2) H 04/28/17 05:10 Plt Count 515 K/mm3 (140-440) H 04/28/17 05:10 Lymph % (Auto) 18.4 % (13.4-35.0) 04/28/17 05:10 [place] % (Auto) 8.4 % (0.0-7.3) H 04/28/17 05:10 Eos % (Auto) 1.8 % (0.0-4.3) 04/28/17 05:10 Baso % (Auto) 0.8 % (0.0-1.8) 04/28/17 05:10 Lymph # 1.7 K/mm3 (1.2-5.4) 04/28/17 05:10 [place] # 0.8 K/mm3 (0.0-0.8) 04/28/17 05:10 Eos # 0.2 K/mm3 (0.0-0.4) 04/28/17 05:10 Baso # 0.1 K/mm3 (0.0-0.1) 04/28/17 05:10 Add Manual Diff Complete 01/10/17 04:30 Total Counted 100 01/10/17 04:30 Seg Neutrophils % 70.6 % (40.0-70.0) H 04/28/17 05:10 Seg Neuts % (Manual) 88.0 % (40.0-70.0) H 01/10/17 04:30 Band Neutrophils % 7.0 % 01/10/17 04:30 Lymphocytes % (Manual) 4.0 % (13.4-35.0) L 01/10/17 04:30 Reactive Lymphs % (Man) 0 % 01/10/17 04:30 Monocytes % (Manual) 1.0 % (0.0-7.3) 01/10/17 04:30 Eosinophils % (Manual) 0 % (0.0-4.3) 01/10/17 04:30 Basophils % (Manual) 0 % (0.0-1.8) 01/10/17 04:30 Metamyelocytes % 0 % 01/10/17 04:30 Myelocytes % 0 % 01/10/17 04:30 Promyelocytes % 0 % 01/10/17 04:30 Blast Cells % 0 % 01/10/17 04:30 Nucleated RBC % Not Reportable 01/10/17 04:30 Seg Neutrophils # 6.6 K/mm3 (1.8-7.7) 04/28/17 05:10 Seg Neutrophils # Man 21.2 K/mm3 (1.8-7.7) H 01/10/17 04:30 Band Neutrophils # 1.7 K/mm3 01/10/17 04:30 Lymphocytes # (Manual) 1.0 K/mm3 (1.2-5.4) L 01/10/17 04:30 Abs React Lymphs (Man) 0.0 K/mm3 01/10/17 04:30 Monocytes # (Manual) 0.2 K/mm3 (0.0-0.8) 01/10/17 04:30 Eosinophils # (Manual) 0.0 K/mm3 (0.0-0.4) 01/10/17 04:30 Basophils # (Manual) 0.0 K/mm3 (0.0-0.1) 01/10/17 04:30 Metamyelocytes # 0.0 K/mm3 01/10/17 04:30 Myelocytes # 0.0 K/mm3 01/10/17 04:30 Promyelocytes # 0.0 K/mm3 01/10/17 04:30 Blast Cells # 0.0 K/mm3 01/10/17 04:30 WBC Morphology Not Reportable 01/10/17 04:30 Hypersegmented Neuts Not Reportable 01/10/17 04:30 Hyposegmented Neuts Not Reportable 01/10/17 04:30 Hypogranular Neuts Not Reportable 01/10/17 04:30 Smudge Cells Not Reportable 01/10/17 04:30 Toxic Granulation Not Reportable 01/10/17 04:30 Toxic Vacuolation Not Reportable 01/10/17 04:30 Dohle Bodies Not Reportable 01/10/17 04:30 Pelger-Huet Anomaly Not Reportable 01/10/17 04:30 [place] Rods Not Reportable 01/10/17 04:30 Platelet Estimate Consistent w auto 01/10/17 04:30 Clumped Platelets Not Reportable 01/10/17 04:30 Plt Clumps, EDTA Not Reportable 01/10/17 04:30 Large Platelets Not Reportable 01/10/17 04:30 Giant Platelets Not Reportable 01/10/17 04:30 Platelet Satelliting Not Reportable 01/10/17 04:30 Plt Morphology Comment Not Reportable 01/10/17 04:30 RBC Morphology Not Reportable 01/10/17 04:30 Dimorphic RBCs Not Reportable 01/10/17 04:30 Polychromasia Not Reportable 01/10/17 04:30 Hypochromasia 1+ 01/10/17 04:30 Poikilocytosis Not Reportable 01/10/17 04:30 Anisocytosis Not Reportable 01/10/17 04:30 Microcytosis Not Reportable 01/10/17 04:30 Macrocytosis Not Reportable 01/10/17 04:30 Spherocytes Not Reportable 01/10/17 04:30 Pappenheimer Bodies Not Reportable 01/10/17 04:30 Sickle Cells Not Reportable 01/10/17 04:30 Target Cells Not Reportable 01/10/17 04:30 Tear Drop Cells Not Reportable 01/10/17 04:30 Ovalocytes Not Reportable 01/10/17 04:30 Helmet Cells Not Reportable 01/10/17 04:30 [place] Bodies Not Reportable 01/10/17 04:30 [place] Rings Not Reportable 01/10/17 04:30 [place] Cells Not Reportable 01/10/17 04:30 Bite Cells Not Reportable 01/10/17 04:30 Crenated Cell Not Reportable 01/10/17 04:30 Elliptocytes Not Reportable 01/10/17 04:30 Acanthocytes (Spur) Not Reportable 01/10/17 04:30 Rouleaux Not Reportable 01/10/17 04:30 Hemoglobin C Crystals Not Reportable 01/10/17 04:30 Schistocytes Not Reportable 01/10/17 04:30 Malaria parasites Not Reportable 01/10/17 04:30 [place] Bodies Not Reportable 01/10/17 04:30 Hem Pathologist Commnt No 01/10/17 04:30 PT 14.1 Sec. (12.2-14.9) 01/17/17 04:10 INR 1.04 (0.87-1.13) 01/17/17 04:10 APTT 36.6 Sec. (24.2-36.6) 01/17/17 04:10 POC ABG pH 7.442 (7.35-7.45) 01/31/17 18:55 ABG pH 7.420 pH Units (7.350-7.450) 01/17/17 04:35 POC ABG pCO2 32.8 (35-45) L 01/31/17 18:55 ABG pCO2 34.5 mm Hg 01/17/17 04:35 POC ABG pO2 82 (80-105) 01/31/17 18:55 ABG pO2 160.3 mm Hg (80.0-90.0) H 01/17/17 04:35 POC ABG HCO3 22.4 01/31/17 18:55 ABG HCO3 21.9 mmol/L (20.0-26.0) 01/17/17 04:35 POC ABG Total CO2 23 01/31/17 18:55 POC ABG O2 Sat 97 01/31/17 18:55 ABG O2 Saturation 99.0 % (95.0-99.0) 01/17/17 04:35 ABG O2 Content 11.1 (0.0-44) 01/17/17 04:35 POC ABG Base Excess -2 01/31/17 18:55 ABG Base Excess -2.3 mmol/L (-2.0-3.0) L 01/17/17 04:35 ABG Hemoglobin 7.9 gm/dl (14.0-18.0) L 01/17/17 04:35 ABG Carboxyhemoglobin 1.5 % (0.0-5.0) 01/17/17 04:35 ABG Methemoglobin 0.5 % (0.0-1.5) 01/17/17 04:35 VBG pH 7.284 (7.320-7.420) L 01/09/17 10:16 Oxyhemoglobin 97.1 % (95.0-99.0) 01/17/17 04:35 FiO2 25 % 01/31/17 18:55 Sodium 136 mmol/L (137-145) L 04/28/17 05:10 Potassium 4.5 mmol/L (3.6-5.0) 04/28/17 05:10 Chloride 95.2 mmol/L (98-107) L 04/28/17 05:10 Carbon Dioxide 27 mmol/L (22-30) 04/28/17 05:10 Anion Gap 18 mmol/L 04/28/17 05:10 BUN 42 mg/dL (9-20) H 04/28/17 05:10 Creatinine 0.9 mg/dL (0.8-1.5) 04/28/17 05:10 Estimated GFR > 60 ml/min 04/28/17 05:10 BUN/Creatinine Ratio 47 % 04/28/17 05:10 Glucose 63 mg/dL (75-100) L 04/28/17 05:10 POC Glucose 144 (70-105) H 06/04/17 05:37 Lactic Acid 0.80 mmol/L (0.7-2.0) 01/30/17 11:49 Calcium 9.1 mg/dL (8.4-10.2) 04/28/17 05:10 Phosphorus 3.10 mg/dL (2.5-4.5) 03/29/17 04:32 Magnesium 1.90 mg/dL (1.7-2.3) 03/29/17 04:32 Total Bilirubin 0.50 mg/dL (0.1-1.2) 04/28/17 05:10 AST 45 units/L (5-40) H 04/28/17 05:10 ALT 42 units/L (7-56) 04/28/17 05:10 Alkaline Phosphatase 271 units/L (35-129) H 04/28/17 05:10 Ammonia 35.0 umol/L (25-60) 01/09/17 10:16 Total Creatine Kinase 135 units/L (55-170) 01/09/17 10:16 CK-MB (CK-2) 7.1 ng/mL (0.0-4.0) H 01/09/17 10:16 CK-MB (CK-2) Rel Index 5.2 (0-4) H 01/09/17 10:16 Troponin T < 0.010 ng/mL (0.00-0.029) 01/09/17 10:16 NT-Pro-B Natriuret Pep 602.9 pg/mL (0-900) 01/09/17 10:16 Total Protein 8.9 g/dL (6.3-8.2) H 04/28/17 05:10 Albumin 2.5 g/dL (3.9-5) L 04/28/17 05:10 Albumin/Globulin Ratio 0.4 % 04/28/17 05:10 TSH 52.800 mlU/mL (0.270-4.200) H 01/09/17 10:16 Free T4 0.78 ng/dL (0.76-1.46) 01/09/17 10:16 Total Cortisol 54.8 mcg/dL () 01/09/17 16:19 Urine Color Yellow (Yellow) 01/28/17 17:52 Urine Turbidity Clear (Clear) 01/28/17 17:52 Urine pH 6.0 (5.0-7.0) 01/28/17 17:52 Ur Specific [place] 1.016 (1.003-1.030) 01/28/17 17:52 Urine Protein 100 mg/dl mg/dL (Negative) 01/28/17 17:52 Urine Glucose (UA) >=500 mg/dL (Negative) 01/28/17 17:52 Urine Ketones Neg mg/dL (Negative) 01/28/17 17:52 Urine Blood Sm (Negative) 01/28/17 17:52 Urine Nitrite Neg (Negative) 01/28/17 17:52 Urine Bilirubin Neg (Negative) 01/28/17 17:52 Urine Urobilinogen < 2.0 mg/dL (<2.0) 01/28/17 17:52 Ur Leukocyte Esterase Lg (Negative) 01/28/17 17:52 Urine WBC (Auto) > 182.0 /HPF (0.0-6.0) H 01/28/17 17:52 Urine RBC (Auto) 113.0 /HPF (0.0-6.0) 01/28/17 17:52 Urine Bacteria (Auto) 2+ /HPF (Negative) 01/28/17 17:52 Urine WBC Clumps 3+ /HPF 01/28/17 17:52 Urine Mucus Few /HPF 01/14/17 14:07 Urine Yeast (Budding) 3+ /HPF 01/14/17 14:07 Salicylates < 0.3 mg/dL (2.8-20.0) L 01/09/17 10:16 Urine Opiates Screen Presumptive negative 01/09/17 10:23 Urine Methadone Screen Presumptive negative 01/09/17 10:23 Acetaminophen < 15.0 ug/mL (10.0-30.0) 01/09/17 10:16 Ur Barbiturates Screen Presumptive negative 01/09/17 10:23 Ur Phencyclidine Scrn Presumptive negative 01/09/17 10:23 Ur Amphetamines Screen Presumptive negative 01/09/17 10:23 U Benzodiazepines Scrn Presumptive negative 01/09/17 10:23 Urine Cocaine Screen Presumptive negative 01/09/17 10:23 U Marijuana (THC) Screen Presumptive negative 01/09/17 10:23 Drugs of Abuse Note Disclamer 01/09/17 10:23 Plasma/Serum Alcohol < 0.01 gm% (0-0.07) 01/09/17 10:16
[2017-06-04] MEDS: HumuLIN R SUB-Q SCH ×2 (15:54→22:00)
--- NOTE | 2017-06-04 16:18 | Progress Note ---
Assessment and Plan Imp: 1. Hypoglycemia/hypothermia -> suspect due to too much insulin 2. Hypothyroidism; doubt myxedema coma with normal free T4 3. Acute respiratory failure, hypoxia 4. UTI/SIRS 5. Metabolic/anoxic encephalopathy Rec: 1. GI/DVT PPx/TFs 2. Reviewed chart; ethics note 01/18/17 recommended AND and "hospice"; further care felt to be futile and would only prolong potential suffering without affecting ultimate outcome 3. Comfort care, no escalation of care; would not check any further labs, CXRs, or cultures; would not work him up for infections in setting of fever, only treat w/ Tylenol for palliative purposes; would not place another IV either 4. Poor prognosis Unable to locate family. Subjective Date of service: 06/04/17 Principal diagnosis: Acute respiratory failure,encephalopathy Interval history: No events. On vent. Unresponsive. Active Medications Acetaminophen/Hydrocodone Bitart (Rufus 7.5/325) 1 each PO Q4H PRN PRN Reason: Pain, Moderate (4-6) Lipase/Protease/Amylase (Chano Morales 10,500 Unit) 1 each FEEDTUBE PRN PRN PRN Reason: For Clogged Feeding Tube Dextrose (D50w (25gm) Syringe) 25 ml IV PRN PRN PRN Reason: Hypoglycemia Famotidine (Pepcid) 20 mg PO BID [facility] Last Admin: 06/04/17 09:14 Dose: 20 mg Heparin Sodium (Porcine) (Heparin) 5,000 unit SUB-Q Q12HR [facility] Last Admin: 06/04/17 09:13 Dose: 5,000 unit Hydrophilic Ointment (Vaseline Lip Therapy) 1 applic TP Q2HR PRN PRN Reason: Dry Lips Last Admin: 05/16/17 00:26 Dose: 1 applic Insulin Detemir (Levemir) 5 units SUB-Q QAMDIAB [facility] Last Admin: 06/04/17 09:13 Dose: 5 units Insulin Human Regular (Novolin R) 0 units SUB-Q Q8HR [facility] PRN Reason: Protocol Last Admin: 06/04/17 15:54 Dose: 3 units Multi-Ingred Cream/Lotion/Oil/Oint (Artificial Tears Ophth Oint) 1 applic OU Q4HR PRN PRN Reason: Dry Eye(s) Simple Syrup (Simple Syrup) 15 ml FEEDTUBE PRN PRN PRN Reason: Hypoglycemia Simple Syrup (Simple Syrup) 30 ml FEEDTUBE PRN PRN PRN Reason: Hypoglycemia Last Admin: 05/28/17 15:41 Dose: 30 ml Sodium Bicarbonate (Sodium Bicarbonate) 325 mg FEEDTUBE PRN PRN PRN Reason: For Clogged Feeding Tube Objective Vital Signs - 12hr 06/04/17 06/04/17 06/04/17 04:44 05:05 06:00 Temperature 99.5 F Pulse Rate 78 Pulse Rate [ Left] Respiratory 12 Rate Respiratory 12 Rate [ Generalized] Blood Pressure 111/75 O2 Sat by Pulse 100 Oximetry 06/04/17 06/04/17 06/04/17 06:14 07:37 07:46 Temperature 99.5 F Pulse Rate 82 79 Pulse Rate [ 65 Left] Respiratory 12 Rate Respiratory Rate [ Generalized] Blood Pressure 111/75 111/75 111/75 O2 Sat by Pulse 100 100 100 Oximetry 06/04/17 06/04/17 06/04/17 08:00 12:00 12:37 Temperature 100.2 F H 98.7 F Pulse Rate 69 Pulse Rate [ Left] Respiratory Rate Respiratory Rate [ Generalized] Blood Pressure 111/74 O2 Sat by Pulse 100 Oximetry Constitutional: no acute distress, other (on vent) Eyes: non-icteric ENT: oropharynx moist, other (ETT in position) Neck: supple Effort: normal Ascultation: Bilateral: clear Cardiovascular: regular rate and rhythm (no mrg) Gastrointestinal: normoactive bowel sounds, soft, non-tender, non-distended Integumentary: normal Extremities: no cyanosis, no edema, pink and warm Neurologic: pupils equal and round, other (opens eyes spontaneously, but no meaningful responce to stimuli) Psychiatric: other (unable to obtain) CBC and BMP: 04/28/17 05:10 04/28/17 05:10 ABG, PT/INR, D-dimer: ABG POC ABG pH 7.442 (7.35-7.45) 01/31/17 18:55 ABG pH 7.420 pH Units (7.350-7.450) 01/17/17 04:35 POC ABG pCO2 32.8 (35-45) L 01/31/17 18:55 ABG pCO2 34.5 mm Hg 01/17/17 04:35 POC ABG pO2 82 (80-105) 01/31/17 18:55 ABG pO2 160.3 mm Hg (80.0-90.0) H 01/17/17 04:35 POC ABG HCO3 22.4 01/31/17 18:55 POC ABG Total CO2 23 01/31/17 18:55 POC ABG O2 Sat 97 01/31/17 18:55 ABG O2 Saturation 99.0 % (95.0-99.0) 01/17/17 04:35 PT/INR, D-dimer PT 14.1 Sec. (12.2-14.9) 01/17/17 04:10 INR 1.04 (0.87-1.13) 01/17/17 04:10 Abnormal lab findings: Abnormal Labs 01/09/17 01/09/17 01/09/17 10:16 10:16 10:16 WBC RBC Hgb 9.7 L Hct 28.4 L MCV 76 L MCH 26 L RDW 17.2 H Plt Count 448 H Lymph % (Auto) [place] % (Auto) Eos % (Auto) [place] # Seg Neutrophils % 79.5 H Seg Neuts % (Manual) Lymphocytes % (Manual) Seg Neutrophils # Seg Neutrophils # Man Lymphocytes # (Manual) APTT 39.6 H POC ABG pH ABG pH POC ABG pCO2 POC ABG pO2 ABG pO2 ABG HCO3 ABG Base Excess ABG Hemoglobin VBG pH Oxyhemoglobin Sodium 132 L Potassium Chloride 96.7 L Carbon Dioxide 21 L BUN 34 H Creatinine Glucose POC Glucose Lactic Acid Calcium 8.3 L AST ALT Alkaline Phosphatase 151 H CK-MB (CK-2) 7.1 H CK-MB (CK-2) Rel Index 5.2 H Total Protein Albumin 3.3 L TSH Urine WBC (Auto) Salicylates 01/09/17 01/09/17 01/09/17 10:16 10:16 10:16 WBC RBC Hgb Hct MCV MCH RDW Plt Count Lymph % (Auto) [place] % (Auto) Eos % (Auto) [place] # Seg Neutrophils % Seg Neuts % (Manual) Lymphocytes % (Manual) Seg Neutrophils # Seg Neutrophils # Man Lymphocytes # (Manual) APTT POC ABG pH ABG pH POC ABG pCO2 POC ABG pO2 ABG pO2 ABG HCO3 ABG Base Excess ABG Hemoglobin VBG pH 7.284 L Oxyhemoglobin Sodium Potassium Chloride Carbon Dioxide BUN Creatinine Glucose POC Glucose Lactic Acid Calcium AST ALT Alkaline Phosphatase CK-MB (CK-2) CK-MB (CK-2) Rel Index Total Protein Albumin TSH 52.800 H Urine WBC (Auto) Salicylates < 0.3 L 01/09/17 01/09/17 01/09/17 10:23 11:14 12:49 WBC RBC Hgb Hct MCV MCH RDW Plt Count Lymph % (Auto) [place] % (Auto) Eos % (Auto) [place] # Seg Neutrophils % Seg Neuts % (Manual) Lymphocytes % (Manual) Seg Neutrophils # Seg Neutrophils # Man Lymphocytes # (Manual) APTT POC ABG pH ABG pH POC ABG pCO2 POC ABG pO2 643 H ABG pO2 ABG HCO3 ABG Base Excess ABG Hemoglobin VBG pH Oxyhemoglobin Sodium Potassium Chloride Carbon Dioxide BUN Creatinine Glucose POC Glucose < 40 L Lactic Acid Calcium AST ALT Alkaline Phosphatase CK-MB (CK-2) CK-MB (CK-2) Rel Index Total Protein Albumin TSH Urine WBC (Auto) 61.0 H Salicylates 01/09/17 01/09/17 01/09/17 13:13 14:21 15:09 WBC RBC Hgb Hct MCV MCH RDW Plt Count Lymph % (Auto) [place] % (Auto) Eos % (Auto) [place] # Seg Neutrophils % Seg Neuts % (Manual) Lymphocytes % (Manual) Seg Neutrophils # Seg Neutrophils # Man Lymphocytes # (Manual) APTT POC ABG pH ABG pH POC ABG pCO2 POC ABG pO2 ABG pO2 ABG HCO3 ABG Base Excess ABG Hemoglobin VBG pH Oxyhemoglobin Sodium Potassium Chloride Carbon Dioxide BUN Creatinine Glucose POC Glucose 128 H 65 L 120 H Lactic Acid Calcium AST ALT Alkaline Phosphatase CK-MB (CK-2) CK-MB (CK-2) Rel Index Total Protein Albumin TSH Urine WBC (Auto) Salicylates 01/09/17 01/09/17 01/10/17 16:28 17:14 04:30 WBC 24.1 H RBC 3.38 L Hgb 8.5 L Hct 26.0 L MCV 77 L MCH 25 L RDW 17.9 H Plt Count 474 H Lymph % (Auto) [place] % (Auto) Eos % (Auto) [place] # Seg Neutrophils % Seg Neuts % (Manual) 88.0 H Lymphocytes % (Manual) 4.0 L Seg Neutrophils # Seg Neutrophils # Man 21.2 H Lymphocytes # (Manual) 1.0 L APTT POC ABG pH ABG pH POC ABG pCO2 POC ABG pO2 ABG pO2 ABG HCO3 ABG Base Excess ABG Hemoglobin VBG pH Oxyhemoglobin Sodium Potassium Chloride Carbon Dioxide BUN Creatinine Glucose POC Glucose 44 L 112 H Lactic Acid Calcium AST ALT Alkaline Phosphatase CK-MB (CK-2) CK-MB (CK-2) Rel Index Total Protein Albumin TSH Urine WBC (Auto) Salicylates 01/10/17 01/10/17 01/10/17 04:30 05:41 05:45 WBC RBC Hgb Hct MCV MCH RDW Plt Count Lymph % (Auto) [place] % (Auto) Eos % (Auto) [place] # Seg Neutrophils % Seg Neuts % (Manual) Lymphocytes % (Manual) Seg Neutrophils # Seg Neutrophils # Man Lymphocytes # (Manual) APTT POC ABG pH ABG pH POC ABG pCO2 26.6 L POC ABG pO2 207 H ABG pO2 ABG HCO3 ABG Base Excess ABG Hemoglobin VBG pH Oxyhemoglobin Sodium Potassium Chloride Carbon Dioxide 17 L BUN 27 H Creatinine Glucose POC Glucose 68 L Lactic Acid Calcium 7.5 L AST ALT Alkaline Phosphatase CK-MB (CK-2) CK-MB (CK-2) Rel Index Total Protein Albumin TSH Urine WBC (Auto) Salicylates 01/10/17 01/10/17 01/10/17 07:47 10:50 13:41 WBC RBC Hgb Hct MCV MCH RDW Plt Count Lymph % (Auto) [place] % (Auto) Eos % (Auto) [place] # Seg Neutrophils % Seg Neuts % (Manual) Lymphocytes % (Manual) Seg Neutrophils # Seg Neutrophils # Man Lymphocytes # (Manual) APTT POC ABG pH ABG pH POC ABG pCO2 POC ABG pO2 ABG pO2 ABG HCO3 ABG Base Excess ABG Hemoglobin VBG pH Oxyhemoglobin Sodium Potassium Chloride Carbon Dioxide BUN Creatinine Glucose POC Glucose 148 H 165 H 114 H Lactic Acid Calcium AST ALT Alkaline Phosphatase CK-MB (CK-2) CK-MB (CK-2) Rel Index Total Protein Albumin TSH Urine WBC (Auto) Salicylates 01/10/17 01/10/17 01/10/17 20:20 21:39 23:24 WBC RBC Hgb Hct MCV MCH RDW Plt Count Lymph % (Auto) [place] % (Auto) Eos % (Auto) [place] # Seg Neutrophils % Seg Neuts % (Manual) Lymphocytes % (Manual) Seg Neutrophils # Seg Neutrophils # Man Lymphocytes # (Manual) APTT POC ABG pH ABG pH POC ABG pCO2 POC ABG pO2 ABG pO2 ABG HCO3 ABG Base Excess ABG Hemoglobin VBG pH Oxyhemoglobin Sodium Potassium Chloride Carbon Dioxide BUN Creatinine Glucose POC Glucose 150 H 175 H 155 H Lactic Acid Calcium AST ALT Alkaline Phosphatase CK-MB (CK-2) CK-MB (CK-2) Rel Index Total Protein Albumin TSH Urine WBC (Auto) Salicylates 01/11/17 01/11/17 01/11/17 00:19 04:06 05:20 WBC 15.2 H RBC 3.40 L Hgb 8.9 L Hct 26.3 L MCV 78 L MCH 26 L RDW 18.6 H Plt Count 462 H Lymph % (Auto) 13.2 L [place] % (Auto) Eos % (Auto) [place] # Seg Neutrophils % 80.8 H Seg Neuts % (Manual) Lymphocytes % (Manual) Seg Neutrophils # 12.3 H Seg Neutrophils # Man Lymphocytes # (Manual) APTT POC ABG pH 7.463 H ABG pH POC ABG pCO2 26.2 L POC ABG pO2 185 H ABG pO2 ABG HCO3 ABG Base Excess ABG Hemoglobin VBG pH Oxyhemoglobin Sodium Potassium Chloride Carbon Dioxide BUN Creatinine Glucose POC Glucose 163 H Lactic Acid Calcium AST ALT Alkaline Phosphatase CK-MB (CK-2) CK-MB (CK-2) Rel Index Total Protein Albumin TSH Urine WBC (Auto) Salicylates 01/11/17 01/11/17 01/11/17 05:20 06:21 07:57 WBC RBC Hgb Hct MCV MCH RDW Plt Count Lymph % (Auto) [place] % (Auto) Eos % (Auto) [place] # Seg Neutrophils % Seg Neuts % (Manual) Lymphocytes % (Manual) Seg Neutrophils # Seg Neutrophils # Man Lymphocytes # (Manual) APTT POC ABG pH ABG pH POC ABG pCO2 POC ABG pO2 ABG pO2 ABG HCO3 ABG Base Excess ABG Hemoglobin VBG pH Oxyhemoglobin Sodium Potassium 3.4 L Chloride 111.5 H Carbon Dioxide 17 L BUN Creatinine Glucose 147 H POC Glucose 139 H 188 H Lactic Acid Calcium 8.0 L AST ALT Alkaline Phosphatase CK-MB (CK-2) CK-MB (CK-2) Rel Index Total Protein Albumin TSH Urine WBC (Auto) Salicylates 01/11/17 01/11/17 01/11/17 11:46 16:50 23:15 WBC RBC Hgb Hct MCV MCH RDW Plt Count Lymph % (Auto) [place] % (Auto) Eos % (Auto) [place] # Seg Neutrophils % Seg Neuts % (Manual) Lymphocytes % (Manual) Seg Neutrophils # Seg Neutrophils # Man Lymphocytes # (Manual) APTT POC ABG pH ABG pH POC ABG pCO2 POC ABG pO2 ABG pO2 ABG HCO3 ABG Base Excess ABG Hemoglobin VBG pH Oxyhemoglobin Sodium Potassium Chloride Carbon Dioxide BUN Creatinine Glucose POC Glucose 199 H 235 H 155 H Lactic Acid Calcium AST ALT Alkaline Phosphatase CK-MB (CK-2) CK-MB (CK-2) Rel Index Total Protein Albumin TSH Urine WBC (Auto) Salicylates 01/12/17 01/12/17 01/12/17 05:02 06:56 14:50 WBC RBC Hgb Hct MCV MCH RDW Plt Count Lymph % (Auto) [place] % (Auto) Eos % (Auto) [place] # Seg Neutrophils % Seg Neuts % (Manual) Lymphocytes % (Manual) Seg Neutrophils # Seg Neutrophils # Man Lymphocytes # (Manual) APTT POC ABG pH ABG pH POC ABG pCO2 28.0 L POC ABG pO2 178 H ABG pO2 ABG HCO3 ABG Base Excess ABG Hemoglobin VBG pH Oxyhemoglobin Sodium Potassium Chloride Carbon Dioxide BUN Creatinine Glucose POC Glucose 119 H 164 H Lactic Acid Calcium AST ALT Alkaline Phosphatase CK-MB (CK-2) CK-MB (CK-2) Rel Index Total Protein Albumin TSH Urine WBC (Auto) Salicylates 01/13/17 01/13/17 01/13/17 03:37 03:37 04:26 WBC RBC 3.61 L Hgb 9.3 L Hct 28.0 L MCV 78 L MCH 26 L RDW 18.2 H Plt Count Lymph % (Auto) [place] % (Auto) Eos % (Auto) [place] # Seg Neutrophils % Seg Neuts % (Manual) Lymphocytes % (Manual) Seg Neutrophils # Seg Neutrophils # Man Lymphocytes # (Manual) APTT POC ABG pH 7.485 H ABG pH POC ABG pCO2 25.4 L POC ABG pO2 73 L ABG pO2 ABG HCO3 ABG Base Excess ABG Hemoglobin VBG pH Oxyhemoglobin Sodium Potassium Chloride 112.4 H Carbon Dioxide 19 L BUN Creatinine Glucose 118 H POC Glucose Lactic Acid Calcium 8.0 L AST ALT Alkaline Phosphatase CK-MB (CK-2) CK-MB (CK-2) Rel Index Total Protein Albumin TSH Urine WBC (Auto) Salicylates 01/13/17 01/13/17 01/13/17 06:15 11:50 17:31 WBC RBC Hgb Hct MCV MCH RDW Plt Count Lymph % (Auto) [place] % (Auto) Eos % (Auto) [place] # Seg Neutrophils % Seg Neuts % (Manual) Lymphocytes % (Manual) Seg Neutrophils # Seg Neutrophils # Man Lymphocytes # (Manual) APTT POC ABG pH ABG pH POC ABG pCO2 POC ABG pO2 ABG pO2 ABG HCO3 ABG Base Excess ABG Hemoglobin VBG pH Oxyhemoglobin Sodium Potassium Chloride Carbon Dioxide BUN Creatinine Glucose POC Glucose 116 H 171 H 203 H Lactic Acid Calcium AST ALT Alkaline Phosphatase CK-MB (CK-2) CK-MB (CK-2) Rel Index Total Protein Albumin TSH Urine WBC (Auto) Salicylates 01/14/17 01/14/17 01/14/17 00:02 04:50 04:50 WBC RBC 3.32 L Hgb 8.5 L Hct 26.1 L MCV 79 L MCH 26 L RDW 18.2 H Plt Count Lymph % (Auto) [place] % (Auto) 9.0 H Eos % (Auto) [place] # Seg Neutrophils % Seg Neuts % (Manual) Lymphocytes % (Manual) Seg Neutrophils # Seg Neutrophils # Man Lymphocytes # (Manual) APTT POC ABG pH ABG pH POC ABG pCO2 POC ABG pO2 ABG pO2 ABG HCO3 ABG Base Excess ABG Hemoglobin VBG pH Oxyhemoglobin Sodium Potassium Chloride 112.5 H Carbon Dioxide BUN Creatinine Glucose 149 H POC Glucose 157 H Lactic Acid Calcium 8.1 L AST ALT Alkaline Phosphatase CK-MB (CK-2) CK-MB (CK-2) Rel Index Total Protein Albumin TSH Urine WBC (Auto) Salicylates 01/14/17 01/14/17 01/14/17 05:10 11:27 14:07 WBC RBC Hgb Hct MCV MCH RDW Plt Count Lymph % (Auto) [place] % (Auto) Eos % (Auto) [place] # Seg Neutrophils % Seg Neuts % (Manual) Lymphocytes % (Manual) Seg Neutrophils # Seg Neutrophils # Man Lymphocytes # (Manual) APTT POC ABG pH ABG pH POC ABG pCO2 POC ABG pO2 ABG pO2 ABG HCO3 ABG Base Excess ABG Hemoglobin VBG pH Oxyhemoglobin Sodium Potassium Chloride Carbon Dioxide BUN Creatinine Glucose POC Glucose 176 H 147 H Lactic Acid Calcium AST ALT Alkaline Phosphatase CK-MB (CK-2) CK-MB (CK-2) Rel Index Total Protein Albumin TSH Urine WBC (Auto) 53.0 H Salicylates 01/14/17 01/15/17 01/15/17 16:52 00:04 05:26 WBC RBC Hgb Hct MCV MCH RDW Plt Count Lymph % (Auto) [place] % (Auto) Eos % (Auto) [place] # Seg Neutrophils % Seg Neuts % (Manual) Lymphocytes % (Manual) Seg Neutrophils # Seg Neutrophils # Man Lymphocytes # (Manual) APTT POC ABG pH ABG pH POC ABG pCO2 POC ABG pO2 ABG pO2 ABG HCO3 ABG Base Excess ABG Hemoglobin VBG pH Oxyhemoglobin Sodium Potassium Chloride Carbon Dioxide BUN Creatinine Glucose POC Glucose 131 H 193 H 215 H Lactic Acid Calcium AST ALT Alkaline Phosphatase CK-MB (CK-2) CK-MB (CK-2) Rel Index Total Protein Albumin TSH Urine WBC (Auto) Salicylates 01/15/17 01/15/17 01/15/17 11:49 17:47 21:33 WBC RBC Hgb Hct MCV MCH RDW Plt Count Lymph % (Auto) [place] % (Auto) Eos % (Auto) [place] # Seg Neutrophils % Seg Neuts % (Manual) Lymphocytes % (Manual) Seg Neutrophils # Seg Neutrophils # Man Lymphocytes # (Manual) APTT POC ABG pH ABG pH POC ABG pCO2 POC ABG pO2 ABG pO2 ABG HCO3 ABG Base Excess ABG Hemoglobin VBG pH Oxyhemoglobin Sodium Potassium Chloride Carbon Dioxide BUN Creatinine Glucose POC Glucose 121 H 211 H 275 H Lactic Acid Calcium AST ALT Alkaline Phosphatase CK-MB (CK-2) CK-MB (CK-2) Rel Index Total Protein Albumin TSH Urine WBC (Auto) Salicylates 01/16/17 01/16/17 01/16/17 04:30 05:28 13:45 WBC RBC Hgb Hct MCV MCH RDW Plt Count Lymph % (Auto) [place] % (Auto) Eos % (Auto) [place] # Seg Neutrophils % Seg Neuts % (Manual) Lymphocytes % (Manual) Seg Neutrophils # Seg Neutrophils # Man Lymphocytes # (Manual) APTT POC ABG pH ABG pH 7.457 H POC ABG pCO2 POC ABG pO2 ABG pO2 55.1 L ABG HCO3 19.4 L ABG Base Excess -4.0 L ABG Hemoglobin 6.8 L VBG pH Oxyhemoglobin 94.9 L Sodium Potassium Chloride Carbon Dioxide BUN Creatinine Glucose POC Glucose 271 H 236 H Lactic Acid Calcium AST ALT Alkaline Phosphatase CK-MB (CK-2) CK-MB (CK-2) Rel Index Total Protein Albumin TSH Urine WBC (Auto) Salicylates 01/16/17 01/17/17 01/17/17 21:39 04:10 04:10 WBC 4.4 L RBC 2.98 L Hgb 7.7 L Hct 23.3 L MCV 78 L MCH 26 L RDW 18.1 H Plt Count Lymph % (Auto) [place] % (Auto) Eos % (Auto) [place] # Seg Neutrophils % Seg Neuts % (Manual) Lymphocytes % (Manual) Seg Neutrophils # Seg Neutrophils # Man Lymphocytes # (Manual) APTT POC ABG pH ABG pH POC ABG pCO2 POC ABG pO2 ABG pO2 ABG HCO3 ABG Base Excess ABG Hemoglobin VBG pH Oxyhemoglobin Sodium Potassium 3.3 L Chloride 108.7 H Carbon Dioxide 20 L BUN 8 L Creatinine Glucose 202 H POC Glucose 258 H Lactic Acid Calcium 7.6 L AST ALT Alkaline Phosphatase CK-MB (CK-2) CK-MB (CK-2) Rel Index Total Protein Albumin TSH Urine WBC (Auto) Salicylates 01/17/17 01/17/17 01/17/17 04:35 12:23 16:01 WBC RBC Hgb Hct MCV MCH RDW Plt Count Lymph % (Auto) [place] % (Auto) Eos % (Auto) [place] # Seg Neutrophils % Seg Neuts % (Manual) Lymphocytes % (Manual) Seg Neutrophils # Seg Neutrophils # Man Lymphocytes # (Manual) APTT POC ABG pH ABG pH POC ABG pCO2 POC ABG pO2 ABG pO2 160.3 H ABG HCO3 ABG Base Excess -2.3 L ABG Hemoglobin 7.9 L VBG pH Oxyhemoglobin Sodium Potassium Chloride Carbon Dioxide BUN Creatinine Glucose POC Glucose 321 H 239 H Lactic Acid Calcium AST ALT Alkaline Phosphatase CK-MB (CK-2) CK-MB (CK-2) Rel Index Total Protein Albumin TSH Urine WBC (Auto) Salicylates 01/18/17 01/18/17 01/18/17 05:07 12:09 17:54 WBC RBC Hgb Hct MCV MCH RDW Plt Count Lymph % (Auto) [place] % (Auto) Eos % (Auto) [place] # Seg Neutrophils % Seg Neuts % (Manual) Lymphocytes % (Manual) Seg Neutrophils # Seg Neutrophils # Man Lymphocytes # (Manual) APTT POC ABG pH ABG pH POC ABG pCO2 POC ABG pO2 ABG pO2 ABG HCO3 ABG Base Excess ABG Hemoglobin VBG pH Oxyhemoglobin Sodium Potassium Chloride Carbon Dioxide BUN Creatinine Glucose POC Glucose 155 H 203 H 132 H Lactic Acid Calcium AST ALT Alkaline Phosphatase CK-MB (CK-2) CK-MB (CK-2) Rel Index Total Protein Albumin TSH Urine WBC (Auto) Salicylates 01/18/17 01/19/17 01/19/17 23:43 04:28 12:11 WBC RBC Hgb Hct MCV MCH RDW Plt Count Lymph % (Auto) [place] % (Auto) Eos % (Auto) [place] # Seg Neutrophils % Seg Neuts % (Manual) Lymphocytes % (Manual) Seg Neutrophils # Seg Neutrophils # Man Lymphocytes # (Manual) APTT POC ABG pH ABG pH POC ABG pCO2 POC ABG pO2 ABG pO2 ABG HCO3 ABG Base Excess ABG Hemoglobin VBG pH Oxyhemoglobin Sodium Potassium Chloride Carbon Dioxide BUN Creatinine Glucose POC Glucose 125 H 182 H 153 H Lactic Acid Calcium AST ALT Alkaline Phosphatase CK-MB (CK-2) CK-MB (CK-2) Rel Index Total Protein Albumin TSH Urine WBC (Auto) Salicylates 01/19/17 01/20/17 01/20/17 17:23 00:12 05:44 WBC RBC Hgb Hct MCV MCH RDW Plt Count Lymph % (Auto) [place] % (Auto) Eos % (Auto) [place] # Seg Neutrophils % Seg Neuts % (Manual) Lymphocytes % (Manual) Seg Neutrophils # Seg Neutrophils # Man Lymphocytes # (Manual) APTT POC ABG pH ABG pH POC ABG pCO2 POC ABG pO2 ABG pO2 ABG HCO3 ABG Base Excess ABG Hemoglobin VBG pH Oxyhemoglobin Sodium Potassium Chloride Carbon Dioxide BUN Creatinine Glucose POC Glucose 66 L 139 H 176 H Lactic Acid Calcium AST ALT Alkaline Phosphatase CK-MB (CK-2) CK-MB (CK-2) Rel Index Total Protein Albumin TSH Urine WBC (Auto) Salicylates 01/20/17 01/20/17 01/20/17 11:48 17:42 23:43 WBC RBC Hgb Hct MCV MCH RDW Plt Count Lymph % (Auto) [place] % (Auto) Eos % (Auto) [place] # Seg Neutrophils % Seg Neuts % (Manual) Lymphocytes % (Manual) Seg Neutrophils # Seg Neutrophils # Man Lymphocytes # (Manual) APTT POC ABG pH ABG pH POC ABG pCO2 POC ABG pO2 ABG pO2 ABG HCO3 ABG Base Excess ABG Hemoglobin VBG pH Oxyhemoglobin Sodium Potassium Chloride Carbon Dioxide BUN Creatinine Glucose POC Glucose 218 H 132 H 178 H Lactic Acid Calcium AST ALT Alkaline Phosphatase CK-MB (CK-2) CK-MB (CK-2) Rel Index Total Protein Albumin TSH Urine WBC (Auto) Salicylates 01/21/17 01/21/17 01/21/17 05:34 11:17 23:37 WBC RBC Hgb Hct MCV MCH RDW Plt Count Lymph % (Auto) [place] % (Auto) Eos % (Auto) [place] # Seg Neutrophils % Seg Neuts % (Manual) Lymphocytes % (Manual) Seg Neutrophils # Seg Neutrophils # Man Lymphocytes # (Manual) APTT POC ABG pH ABG pH POC ABG pCO2 POC ABG pO2 ABG pO2 ABG HCO3 ABG Base Excess ABG Hemoglobin VBG pH Oxyhemoglobin Sodium Potassium Chloride Carbon Dioxide BUN Creatinine Glucose POC Glucose 106 H 213 H 140 H Lactic Acid Calcium AST ALT Alkaline Phosphatase CK-MB (CK-2) CK-MB (CK-2) Rel Index Total Protein Albumin TSH Urine WBC (Auto) Salicylates 01/22/17 01/22/17 01/22/17 04:00 04:00 04:58 WBC RBC 3.26 L Hgb 8.3 L Hct 25.5 L MCV 78 L MCH 25 L RDW 17.9 H Plt Count Lymph % (Auto) [place] % (Auto) 7.9 H Eos % (Auto) 6.2 H [place] # Seg Neutrophils % Seg Neuts % (Manual) Lymphocytes % (Manual) Seg Neutrophils # Seg Neutrophils # Man Lymphocytes # (Manual) APTT POC ABG pH ABG pH POC ABG pCO2 POC ABG pO2 ABG pO2 ABG HCO3 ABG Base Excess ABG Hemoglobin VBG pH Oxyhemoglobin Sodium Potassium Chloride 95.5 L Carbon Dioxide 31 H D BUN Creatinine Glucose 134 H POC Glucose 146 H Lactic Acid Calcium AST 44 H ALT Alkaline Phosphatase 379 H CK-MB (CK-2) CK-MB (CK-2) Rel Index Total Protein Albumin 2.7 L TSH Urine WBC (Auto) Salicylates 01/22/17 01/22/17 01/22/17 12:12 18:12 23:39 WBC RBC Hgb Hct MCV MCH RDW Plt Count Lymph % (Auto) [place] % (Auto) Eos % (Auto) [place] # Seg Neutrophils % Seg Neuts % (Manual) Lymphocytes % (Manual) Seg Neutrophils # Seg Neutrophils # Man Lymphocytes # (Manual) APTT POC ABG pH ABG pH POC ABG pCO2 POC ABG pO2 ABG pO2 ABG HCO3 ABG Base Excess ABG Hemoglobin VBG pH Oxyhemoglobin Sodium Potassium Chloride Carbon Dioxide BUN Creatinine Glucose POC Glucose 255 H 182 H 134 H Lactic Acid Calcium AST ALT Alkaline Phosphatase CK-MB (CK-2) CK-MB (CK-2) Rel Index Total Protein Albumin TSH Urine WBC (Auto) Salicylates 01/23/17 01/23/17 01/23/17 04:43 12:12 17:36 WBC RBC Hgb Hct MCV MCH RDW Plt Count Lymph % (Auto) [place] % (Auto) Eos % (Auto) [place] # Seg Neutrophils % Seg Neuts % (Manual) Lymphocytes % (Manual) Seg Neutrophils # Seg Neutrophils # Man Lymphocytes # (Manual) APTT POC ABG pH ABG pH POC ABG pCO2 POC ABG pO2 ABG pO2 ABG HCO3 ABG Base Excess ABG Hemoglobin VBG pH Oxyhemoglobin Sodium Potassium Chloride Carbon Dioxide BUN Creatinine Glucose POC Glucose 218 H 128 H 156 H Lactic Acid Calcium AST ALT Alkaline Phosphatase CK-MB (CK-2) CK-MB (CK-2) Rel Index Total Protein Albumin TSH Urine WBC (Auto) Salicylates 01/24/17 01/24/17 01/24/17 00:08 05:16 11:40 WBC RBC Hgb Hct MCV MCH RDW Plt Count Lymph % (Auto) [place] % (Auto) Eos % (Auto) [place] # Seg Neutrophils % Seg Neuts % (Manual) Lymphocytes % (Manual) Seg Neutrophils # Seg Neutrophils # Man Lymphocytes # (Manual) APTT POC ABG pH ABG pH POC ABG pCO2 POC ABG pO2 ABG pO2 ABG HCO3 ABG Base Excess ABG Hemoglobin VBG pH Oxyhemoglobin Sodium Potassium Chloride Carbon Dioxide BUN Creatinine Glucose POC Glucose 129 H 169 H 187 H Lactic Acid Calcium AST ALT Alkaline Phosphatase CK-MB (CK-2) CK-MB (CK-2) Rel Index Total Protein Albumin TSH Urine WBC (Auto) Salicylates 01/24/17 01/24/17 01/25/17 17:43 23:23 04:56 WBC RBC Hgb Hct MCV MCH RDW Plt Count Lymph % (Auto) [place] % (Auto) Eos % (Auto) [place] # Seg Neutrophils % Seg Neuts % (Manual) Lymphocytes % (Manual) Seg Neutrophils # Seg Neutrophils # Man Lymphocytes # (Manual) APTT POC ABG pH ABG pH POC ABG pCO2 POC ABG pO2 ABG pO2 ABG HCO3 ABG Base Excess ABG Hemoglobin VBG pH Oxyhemoglobin Sodium Potassium Chloride Carbon Dioxide BUN Creatinine Glucose POC Glucose 215 H 222 H 210 H Lactic Acid Calcium AST ALT Alkaline Phosphatase CK-MB (CK-2) CK-MB (CK-2) Rel Index Total Protein Albumin TSH Urine WBC (Auto) Salicylates 01/25/17 01/25/17 01/26/17 11:52 17:37 00:02 WBC RBC Hgb Hct MCV MCH RDW Plt Count Lymph % (Auto) [place] % (Auto) Eos % (Auto) [place] # Seg Neutrophils % Seg Neuts % (Manual) Lymphocytes % (Manual) Seg Neutrophils # Seg Neutrophils # Man Lymphocytes # (Manual) APTT POC ABG pH ABG pH POC ABG pCO2 POC ABG pO2 ABG pO2 ABG HCO3 ABG Base Excess ABG Hemoglobin VBG pH Oxyhemoglobin Sodium Potassium Chloride Carbon Dioxide BUN Creatinine Glucose POC Glucose 284 H 218 H 192 H Lactic Acid Calcium AST ALT Alkaline Phosphatase CK-MB (CK-2) CK-MB (CK-2) Rel Index Total Protein Albumin TSH Urine WBC (Auto) Salicylates 01/26/17 01/26/17 01/26/17 05:33 12:17 17:50 WBC RBC Hgb Hct MCV MCH RDW Plt Count Lymph % (Auto) [place] % (Auto) Eos % (Auto) [place] # Seg Neutrophils % Seg Neuts % (Manual) Lymphocytes % (Manual) Seg Neutrophils # Seg Neutrophils # Man Lymphocytes # (Manual) APTT POC ABG pH ABG pH POC ABG pCO2 POC ABG pO2 ABG pO2 ABG HCO3 ABG Base Excess ABG Hemoglobin VBG pH Oxyhemoglobin Sodium Potassium Chloride Carbon Dioxide BUN Creatinine Glucose POC Glucose 199 H 227 H 229 H Lactic Acid Calcium AST ALT Alkaline Phosphatase CK-MB (CK-2) CK-MB (CK-2) Rel Index Total Protein Albumin TSH Urine WBC (Auto) Salicylates 01/26/17 01/27/17 01/27/17 23:57 05:31 11:42 WBC RBC Hgb Hct MCV MCH RDW Plt Count Lymph % (Auto) [place] % (Auto) Eos % (Auto) [place] # Seg Neutrophils % Seg Neuts % (Manual) Lymphocytes % (Manual) Seg Neutrophils # Seg Neutrophils # Man Lymphocytes # (Manual) APTT POC ABG pH ABG pH POC ABG pCO2 POC ABG pO2 ABG pO2 ABG HCO3 ABG Base Excess ABG Hemoglobin VBG pH Oxyhemoglobin Sodium Potassium Chloride Carbon Dioxide BUN Creatinine Glucose POC Glucose 186 H 285 H 260 H Lactic Acid Calcium AST ALT Alkaline Phosphatase CK-MB (CK-2) CK-MB (CK-2) Rel Index Total Protein Albumin TSH Urine WBC (Auto) Salicylates 01/27/17 01/27/17 01/27/17 17:47 23:58 Unknown WBC 12.1 H RBC 3.28 L Hgb 8.5 L Hct 25.5 L MCV 78 L MCH 26 L RDW 16.8 H Plt Count 601 H Lymph % (Auto) [place] % (Auto) Eos % (Auto) [place] # Seg Neutrophils % Seg Neuts % (Manual) Lymphocytes % (Manual) Seg Neutrophils # Seg Neutrophils # Man Lymphocytes # (Manual) APTT POC ABG pH ABG pH POC ABG pCO2 POC ABG pO2 ABG pO2 ABG HCO3 ABG Base Excess ABG Hemoglobin VBG pH Oxyhemoglobin Sodium Potassium Chloride Carbon Dioxide BUN Creatinine Glucose POC Glucose 329 H 225 H Lactic Acid Calcium AST ALT Alkaline Phosphatase CK-MB (CK-2) CK-MB (CK-2) Rel Index Total Protein Albumin TSH Urine WBC (Auto) Salicylates 01/27/17 01/28/17 01/28/17 Unknown 03:44 03:44 WBC RBC 3.14 L Hgb 8.2 L Hct 24.1 L MCV 77 L MCH 26 L RDW 16.9 H Plt Count 567 H Lymph % (Auto) [place] % (Auto) Eos % (Auto) [place] # Seg Neutrophils % Seg Neuts % (Manual) Lymphocytes % (Manual) Seg Neutrophils # Seg Neutrophils # Man Lymphocytes # (Manual) APTT POC ABG pH ABG pH POC ABG pCO2 POC ABG pO2 ABG pO2 ABG HCO3 ABG Base Excess ABG Hemoglobin VBG pH Oxyhemoglobin Sodium 128 L Potassium 5.4 H Chloride 87.5 L Carbon Dioxide BUN 44 H 42 H Creatinine Glucose 250 H 128 H POC Glucose Lactic Acid Calcium AST ALT Alkaline Phosphatase CK-MB (CK-2) CK-MB (CK-2) Rel Index Total Protein Albumin TSH Urine WBC (Auto) Salicylates 01/28/17 01/28/17 01/28/17 11:43 16:47 17:52 WBC RBC Hgb Hct MCV MCH RDW Plt Count Lymph % (Auto) [place] % (Auto) Eos % (Auto) [place] # Seg Neutrophils % Seg Neuts % (Manual) Lymphocytes % (Manual) Seg Neutrophils # Seg Neutrophils # Man Lymphocytes # (Manual) APTT POC ABG pH ABG pH POC ABG pCO2 POC ABG pO2 ABG pO2 ABG HCO3 ABG Base Excess ABG Hemoglobin VBG pH Oxyhemoglobin Sodium Potassium Chloride Carbon Dioxide BUN Creatinine Glucose POC Glucose 351 H 249 H Lactic Acid Calcium AST ALT Alkaline Phosphatase CK-MB (CK-2) CK-MB (CK-2) Rel Index Total Protein Albumin TSH Urine WBC (Auto) > 182.0 H Salicylates 01/29/17 01/29/17 01/29/17 05:25 05:25 09:32 WBC 13.6 H RBC 3.25 L Hgb 8.3 L Hct 25.1 L MCV 77 L MCH 26 L RDW 16.8 H Plt Count 514 H Lymph % (Auto) [place] % (Auto) Eos % (Auto) [place] # Seg Neutrophils % Seg Neuts % (Manual) Lymphocytes % (Manual) Seg Neutrophils # Seg Neutrophils # Man Lymphocytes # (Manual) APTT POC ABG pH ABG pH POC ABG pCO2 POC ABG pO2 ABG pO2 ABG HCO3 ABG Base Excess ABG Hemoglobin VBG pH Oxyhemoglobin Sodium Potassium Chloride 97.8 L Carbon Dioxide BUN 34 H Creatinine Glucose 222 H POC Glucose Lactic Acid 2.50 H* Calcium AST ALT Alkaline Phosphatase CK-MB (CK-2) CK-MB (CK-2) Rel Index Total Protein Albumin TSH Urine WBC (Auto) Salicylates 01/29/17 01/29/17 01/29/17 11:56 18:11 23:55 WBC RBC Hgb Hct MCV MCH RDW Plt Count Lymph % (Auto) [place] % (Auto) Eos % (Auto) [place] # Seg Neutrophils % Seg Neuts % (Manual) Lymphocytes % (Manual) Seg Neutrophils # Seg Neutrophils # Man Lymphocytes # (Manual) APTT POC ABG pH ABG pH POC ABG pCO2 POC ABG pO2 ABG pO2 ABG HCO3 ABG Base Excess ABG Hemoglobin VBG pH Oxyhemoglobin Sodium Potassium Chloride Carbon Dioxide BUN Creatinine Glucose POC Glucose 261 H 215 H 176 H Lactic Acid Calcium AST ALT Alkaline Phosphatase CK-MB (CK-2) CK-MB (CK-2) Rel Index Total Protein Albumin TSH Urine WBC (Auto) Salicylates 01/30/17 01/30/17 01/30/17 05:31 05:31 05:34 WBC 15.2 H RBC 3.09 L Hgb 7.9 L Hct 23.9 L MCV 77 L MCH 26 L RDW 16.9 H Plt Count 569 H Lymph % (Auto) [place] % (Auto) Eos % (Auto) [place] # Seg Neutrophils % Seg Neuts % (Manual) Lymphocytes % (Manual) Seg Neutrophils # Seg Neutrophils # Man Lymphocytes # (Manual) APTT POC ABG pH ABG pH POC ABG pCO2 POC ABG pO2 ABG pO2 ABG HCO3 ABG Base Excess ABG Hemoglobin VBG pH Oxyhemoglobin Sodium Potassium Chloride Carbon Dioxide BUN 24 H Creatinine Glucose 235 H POC Glucose 243 H Lactic Acid Calcium AST ALT Alkaline Phosphatase CK-MB (CK-2) CK-MB (CK-2) Rel Index Total Protein Albumin TSH Urine WBC (Auto) Salicylates 01/30/17 01/30/17 01/30/17 11:38 17:58 23:29 WBC RBC Hgb Hct MCV MCH RDW Plt Count Lymph % (Auto) [place] % (Auto) Eos % (Auto) [place] # Seg Neutrophils % Seg Neuts % (Manual) Lymphocytes % (Manual) Seg Neutrophils # Seg Neutrophils # Man Lymphocytes # (Manual) APTT POC ABG pH ABG pH POC ABG pCO2 POC ABG pO2 ABG pO2 ABG HCO3 ABG Base Excess ABG Hemoglobin VBG pH Oxyhemoglobin Sodium Potassium Chloride Carbon Dioxide BUN Creatinine Glucose POC Glucose 298 H 208 H 245 H Lactic Acid Calcium AST ALT Alkaline Phosphatase CK-MB (CK-2) CK-MB (CK-2) Rel Index Total Protein Albumin TSH Urine WBC (Auto) Salicylates 01/31/17 01/31/17 01/31/17 04:39 04:39 05:57 WBC 11.4 H RBC 3.22 L Hgb 8.2 L Hct 24.9 L MCV 78 L MCH 25 L RDW 17.2 H Plt Count 576 H Lymph % (Auto) [place] % (Auto) Eos % (Auto) [place] # Seg Neutrophils % Seg Neuts % (Manual) Lymphocytes % (Manual) Seg Neutrophils # Seg Neutrophils # Man Lymphocytes # (Manual) APTT POC ABG pH ABG pH POC ABG pCO2 POC ABG pO2 ABG pO2 ABG HCO3 ABG Base Excess ABG Hemoglobin VBG pH Oxyhemoglobin Sodium Potassium Chloride Carbon Dioxide BUN Creatinine 0.7 L Glucose 223 H POC Glucose 264 H Lactic Acid Calcium AST ALT Alkaline Phosphatase CK-MB (CK-2) CK-MB (CK-2) Rel Index Total Protein Albumin TSH Urine WBC (Auto) Salicylates 01/31/17 01/31/17 01/31/17 12:23 17:41 18:55 WBC RBC Hgb Hct MCV MCH RDW Plt Count Lymph % (Auto) [place] % (Auto) Eos % (Auto) [place] # Seg Neutrophils % Seg Neuts % (Manual) Lymphocytes % (Manual) Seg Neutrophils # Seg Neutrophils # Man Lymphocytes # (Manual) APTT POC ABG pH ABG pH POC ABG pCO2 32.8 L POC ABG pO2 ABG pO2 ABG HCO3 ABG Base Excess ABG Hemoglobin VBG pH Oxyhemoglobin Sodium Potassium Chloride Carbon Dioxide BUN Creatinine Glucose POC Glucose 252 H 208 H Lactic Acid Calcium AST ALT Alkaline Phosphatase CK-MB (CK-2) CK-MB (CK-2) Rel Index Total Protein Albumin TSH Urine WBC (Auto) Salicylates 01/31/17 02/01/17 02/01/17 22:59 03:38 03:38 WBC RBC 2.81 L Hgb 7.4 L Hct 22.1 L MCV 79 L MCH 27 L RDW 17.0 H Plt Count 540 H Lymph % (Auto) [place] % (Auto) Eos % (Auto) [place] # Seg Neutrophils % Seg Neuts % (Manual) Lymphocytes % (Manual) Seg Neutrophils # Seg Neutrophils # Man Lymphocytes # (Manual) APTT POC ABG pH ABG pH POC ABG pCO2 POC ABG pO2 ABG pO2 ABG HCO3 ABG Base Excess ABG Hemoglobin VBG pH Oxyhemoglobin Sodium Potassium Chloride Carbon Dioxide 21 L BUN Creatinine 0.7 L Glucose POC Glucose 40 L Lactic Acid Calcium AST ALT Alkaline Phosphatase CK-MB (CK-2) CK-MB (CK-2) Rel Index Total Protein Albumin TSH Urine WBC (Auto) Salicylates 02/01/17 02/01/17 02/01/17 05:17 12:19 16:44 WBC RBC Hgb Hct MCV MCH RDW Plt Count Lymph % (Auto) [place] % (Auto) Eos % (Auto) [place] # Seg Neutrophils % Seg Neuts % (Manual) Lymphocytes % (Manual) Seg Neutrophils # Seg Neutrophils # Man Lymphocytes # (Manual) APTT POC ABG pH ABG pH POC ABG pCO2 POC ABG pO2 ABG pO2 ABG HCO3 ABG Base Excess ABG Hemoglobin VBG pH Oxyhemoglobin Sodium Potassium Chloride Carbon Dioxide BUN Creatinine Glucose POC Glucose 140 H 213 H 172 H Lactic Acid Calcium AST ALT Alkaline Phosphatase CK-MB (CK-2) CK-MB (CK-2) Rel Index Total Protein Albumin TSH Urine WBC (Auto) Salicylates 02/01/17 02/02/17 02/02/17 23:59 05:14 11:24 WBC RBC Hgb Hct MCV MCH RDW Plt Count Lymph % (Auto) [place] % (Auto) Eos % (Auto) [place] # Seg Neutrophils % Seg Neuts % (Manual) Lymphocytes % (Manual) Seg Neutrophils # Seg Neutrophils # Man Lymphocytes # (Manual) APTT POC ABG pH ABG pH POC ABG pCO2 POC ABG pO2 ABG pO2 ABG HCO3 ABG Base Excess ABG Hemoglobin VBG pH Oxyhemoglobin Sodium Potassium Chloride Carbon Dioxide BUN Creatinine Glucose POC Glucose 181 H 194 H 209 H Lactic Acid Calcium AST ALT Alkaline Phosphatase CK-MB (CK-2) CK-MB (CK-2) Rel Index Total Protein Albumin TSH Urine WBC (Auto) Salicylates 02/02/17 02/02/17 02/02/17 11:46 11:46 17:47 WBC RBC 2.94 L Hgb 7.5 L Hct 23.0 L MCV 78 L MCH 25 L RDW 16.9 H Plt Count 520 H Lymph % (Auto) [place] % (Auto) Eos % (Auto) [place] # Seg Neutrophils % Seg Neuts % (Manual) Lymphocytes % (Manual) Seg Neutrophils # Seg Neutrophils # Man Lymphocytes # (Manual) APTT POC ABG pH ABG pH POC ABG pCO2 POC ABG pO2 ABG pO2 ABG HCO3 ABG Base Excess ABG Hemoglobin VBG pH Oxyhemoglobin Sodium Potassium Chloride Carbon Dioxide BUN Creatinine 0.6 L Glucose 189 H POC Glucose 147 H Lactic Acid Calcium 8.1 L AST ALT Alkaline Phosphatase CK-MB (CK-2) CK-MB (CK-2) Rel Index Total Protein Albumin TSH Urine WBC (Auto) Salicylates 02/02/17 02/03/17 02/03/17 23:32 05:53 11:19 WBC RBC Hgb Hct MCV MCH RDW Plt Count Lymph % (Auto) [place] % (Auto) Eos % (Auto) [place] # Seg Neutrophils % Seg Neuts % (Manual) Lymphocytes % (Manual) Seg Neutrophils # Seg Neutrophils # Man Lymphocytes # (Manual) APTT POC ABG pH ABG pH POC ABG pCO2 POC ABG pO2 ABG pO2 ABG HCO3 ABG Base Excess ABG Hemoglobin VBG pH Oxyhemoglobin Sodium Potassium Chloride Carbon Dioxide BUN Creatinine Glucose POC Glucose 176 H 224 H 228 H Lactic Acid Calcium AST ALT Alkaline Phosphatase CK-MB (CK-2) CK-MB (CK-2) Rel Index Total Protein Albumin TSH Urine WBC (Auto) Salicylates 02/03/17 02/03/17 02/04/17 16:59 23:38 05:45 WBC RBC Hgb Hct MCV MCH RDW Plt Count Lymph % (Auto) [place] % (Auto) Eos % (Auto) [place] # Seg Neutrophils % Seg Neuts % (Manual) Lymphocytes % (Manual) Seg Neutrophils # Seg Neutrophils # Man Lymphocytes # (Manual) APTT POC ABG pH ABG pH POC ABG pCO2 POC ABG pO2 ABG pO2 ABG HCO3 ABG Base Excess ABG Hemoglobin VBG pH Oxyhemoglobin Sodium Potassium Chloride Carbon Dioxide BUN Creatinine Glucose POC Glucose 189 H 191 H 251 H Lactic Acid Calcium AST ALT Alkaline Phosphatase CK-MB (CK-2) CK-MB (CK-2) Rel Index Total Protein Albumin TSH Urine WBC (Auto) Salicylates 02/04/17 02/04/17 02/05/17 11:20 17:20 00:17 WBC RBC Hgb Hct MCV MCH RDW Plt Count Lymph % (Auto) [place] % (Auto) Eos % (Auto) [place] # Seg Neutrophils % Seg Neuts % (Manual) Lymphocytes % (Manual) Seg Neutrophils # Seg Neutrophils # Man Lymphocytes # (Manual) APTT POC ABG pH ABG pH POC ABG pCO2 POC ABG pO2 ABG pO2 ABG HCO3 ABG Base Excess ABG Hemoglobin VBG pH Oxyhemoglobin Sodium Potassium Chloride Carbon Dioxide BUN Creatinine Glucose POC Glucose 243 H 163 H 200 H Lactic Acid Calcium AST ALT Alkaline Phosphatase CK-MB (CK-2) CK-MB (CK-2) Rel Index Total Protein Albumin TSH Urine WBC (Auto) Salicylates 02/05/17 02/05/17 02/05/17 05:38 12:38 16:29 WBC RBC Hgb Hct MCV MCH RDW Plt Count Lymph % (Auto) [place] % (Auto) Eos % (Auto) [place] # Seg Neutrophils % Seg Neuts % (Manual) Lymphocytes % (Manual) Seg Neutrophils # Seg Neutrophils # Man Lymphocytes # (Manual) APTT POC ABG pH ABG pH POC ABG pCO2 POC ABG pO2 ABG pO2 ABG HCO3 ABG Base Excess ABG Hemoglobin VBG pH Oxyhemoglobin Sodium Potassium Chloride Carbon Dioxide BUN Creatinine Glucose POC Glucose 248 H 241 H 257 H Lactic Acid Calcium AST ALT Alkaline Phosphatase CK-MB (CK-2) CK-MB (CK-2) Rel Index Total Protein Albumin TSH Urine WBC (Auto) Salicylates 02/05/17 02/06/17 02/06/17 23:56 05:30 11:50 WBC RBC Hgb Hct MCV MCH RDW Plt Count Lymph % (Auto) [place] % (Auto) Eos % (Auto) [place] # Seg Neutrophils % Seg Neuts % (Manual) Lymphocytes % (Manual) Seg Neutrophils # Seg Neutrophils # Man Lymphocytes # (Manual) APTT POC ABG pH ABG pH POC ABG pCO2 POC ABG pO2 ABG pO2 ABG HCO3 ABG Base Excess ABG Hemoglobin VBG pH Oxyhemoglobin Sodium Potassium Chloride Carbon Dioxide BUN Creatinine Glucose POC Glucose 258 H 120 H 254 H Lactic Acid Calcium AST ALT Alkaline Phosphatase CK-MB (CK-2) CK-MB (CK-2) Rel Index Total Protein Albumin TSH Urine WBC (Auto) Salicylates 02/06/17 02/06/17 02/07/17 17:11 23:50 05:22 WBC RBC Hgb Hct MCV MCH RDW Plt Count Lymph % (Auto) [place] % (Auto) Eos % (Auto) [place] # Seg Neutrophils % Seg Neuts % (Manual) Lymphocytes % (Manual) Seg Neutrophils # Seg Neutrophils # Man Lymphocytes # (Manual) APTT POC ABG pH ABG pH POC ABG pCO2 POC ABG pO2 ABG pO2 ABG HCO3 ABG Base Excess ABG Hemoglobin VBG pH Oxyhemoglobin Sodium Potassium Chloride Carbon Dioxide BUN Creatinine Glucose POC Glucose 149 H 240 H 258 H Lactic Acid Calcium AST ALT Alkaline Phosphatase CK-MB (CK-2) CK-MB (CK-2) Rel Index Total Protein Albumin TSH Urine WBC (Auto) Salicylates 02/07/17 02/07/17 02/07/17 11:15 18:33 23:59 WBC RBC Hgb Hct MCV MCH RDW Plt Count Lymph % (Auto) [place] % (Auto) Eos % (Auto) [place] # Seg Neutrophils % Seg Neuts % (Manual) Lymphocytes % (Manual) Seg Neutrophils # Seg Neutrophils # Man Lymphocytes # (Manual) APTT POC ABG pH ABG pH POC ABG pCO2 POC ABG pO2 ABG pO2 ABG HCO3 ABG Base Excess ABG Hemoglobin VBG pH Oxyhemoglobin Sodium Potassium Chloride Carbon Dioxide BUN Creatinine Glucose POC Glucose 239 H 176 H 186 H Lactic Acid Calcium AST ALT Alkaline Phosphatase CK-MB (CK-2) CK-MB (CK-2) Rel Index Total Protein Albumin TSH Urine WBC (Auto) Salicylates 02/08/17 02/08/17 02/08/17 06:15 11:55 16:55 WBC RBC Hgb Hct MCV MCH RDW Plt Count Lymph % (Auto) [place] % (Auto) Eos % (Auto) [place] # Seg Neutrophils % Seg Neuts % (Manual) Lymphocytes % (Manual) Seg Neutrophils # Seg Neutrophils # Man Lymphocytes # (Manual) APTT POC ABG pH ABG pH POC ABG pCO2 POC ABG pO2 ABG pO2 ABG HCO3 ABG Base Excess ABG Hemoglobin VBG pH Oxyhemoglobin Sodium Potassium Chloride Carbon Dioxide BUN Creatinine Glucose POC Glucose 195 H 129 H 246 H Lactic Acid Calcium AST ALT Alkaline Phosphatase CK-MB (CK-2) CK-MB (CK-2) Rel Index Total Protein Albumin TSH Urine WBC (Auto) Salicylates 02/08/17 02/09/17 02/09/17 23:51 05:51 07:24 WBC 14.7 H RBC 3.39 L Hgb 8.9 L Hct 26.4 L MCV 78 L MCH 26 L RDW 18.4 H Plt Count 670 H Lymph % (Auto) 11.8 L [place] % (Auto) Eos % (Auto) [place] # Seg Neutrophils % 81.2 H Seg Neuts % (Manual) Lymphocytes % (Manual) Seg Neutrophils # 11.9 H Seg Neutrophils # Man Lymphocytes # (Manual) APTT POC ABG pH ABG pH POC ABG pCO2 POC ABG pO2 ABG pO2 ABG HCO3 ABG Base Excess ABG Hemoglobin VBG pH Oxyhemoglobin Sodium Potassium Chloride Carbon Dioxide BUN Creatinine Glucose POC Glucose 262 H 295 H Lactic Acid Calcium AST ALT Alkaline Phosphatase CK-MB (CK-2) CK-MB (CK-2) Rel Index Total Protein Albumin TSH Urine WBC (Auto) Salicylates 02/09/17 02/09/17 02/09/17 07:24 12:08 18:39 WBC RBC Hgb Hct MCV MCH RDW Plt Count Lymph % (Auto) [place] % (Auto) Eos % (Auto) [place] # Seg Neutrophils % Seg Neuts % (Manual) Lymphocytes % (Manual) Seg Neutrophils # Seg Neutrophils # Man Lymphocytes # (Manual) APTT POC ABG pH ABG pH POC ABG pCO2 POC ABG pO2 ABG pO2 ABG HCO3 ABG Base Excess ABG Hemoglobin VBG pH Oxyhemoglobin Sodium Potassium Chloride 95.5 L Carbon Dioxide BUN 52 H Creatinine Glucose 277 H POC Glucose 236 H 151 H Lactic Acid Calcium AST ALT Alkaline Phosphatase CK-MB (CK-2) CK-MB (CK-2) Rel Index Total Protein Albumin TSH Urine WBC (Auto) Salicylates 02/10/17 02/10/17 02/10/17 00:01 05:44 11:21 WBC RBC Hgb Hct MCV MCH RDW Plt Count Lymph % (Auto) [place] % (Auto) Eos % (Auto) [place] # Seg Neutrophils % Seg Neuts % (Manual) Lymphocytes % (Manual) Seg Neutrophils # Seg Neutrophils # Man Lymphocytes # (Manual) APTT POC ABG pH ABG pH POC ABG pCO2 POC ABG pO2 ABG pO2 ABG HCO3 ABG Base Excess ABG Hemoglobin VBG pH Oxyhemoglobin Sodium Potassium Chloride Carbon Dioxide BUN Creatinine Glucose POC Glucose 210 H 201 H 233 H Lactic Acid Calcium AST ALT Alkaline Phosphatase CK-MB (CK-2) CK-MB (CK-2) Rel Index Total Protein Albumin TSH Urine WBC (Auto) Salicylates 02/10/17 02/10/17 02/11/17 17:29 23:56 05:24 WBC RBC Hgb Hct MCV MCH RDW Plt Count Lymph % (Auto) [place] % (Auto) Eos % (Auto) [place] # Seg Neutrophils % Seg Neuts % (Manual) Lymphocytes % (Manual) Seg Neutrophils # Seg Neutrophils # Man Lymphocytes # (Manual) APTT POC ABG pH ABG pH POC ABG pCO2 POC ABG pO2 ABG pO2 ABG HCO3 ABG Base Excess ABG Hemoglobin VBG pH Oxyhemoglobin Sodium Potassium Chloride Carbon Dioxide BUN Creatinine Glucose POC Glucose 167 H 191 H 135 H Lactic Acid Calcium AST ALT Alkaline Phosphatase CK-MB (CK-2) CK-MB (CK-2) Rel Index Total Protein Albumin TSH Urine WBC (Auto) Salicylates 02/11/17 02/11/17 02/11/17 12:25 17:03 23:59 WBC RBC Hgb Hct MCV MCH RDW Plt Count Lymph % (Auto) [place] % (Auto) Eos % (Auto) [place] # Seg Neutrophils % Seg Neuts % (Manual) Lymphocytes % (Manual) Seg Neutrophils # Seg Neutrophils # Man Lymphocytes # (Manual) APTT POC ABG pH ABG pH POC ABG pCO2 POC ABG pO2 ABG pO2 ABG HCO3 ABG Base Excess ABG Hemoglobin VBG pH Oxyhemoglobin Sodium Potassium Chloride Carbon Dioxide BUN Creatinine Glucose POC Glucose 275 H 172 H 215 H Lactic Acid Calcium AST ALT Alkaline Phosphatase CK-MB (CK-2) CK-MB (CK-2) Rel Index Total Protein Albumin TSH Urine WBC (Auto) Salicylates 02/12/17 02/12/17 02/12/17 05:39 11:33 17:55 WBC RBC Hgb Hct MCV MCH RDW Plt Count Lymph % (Auto) [place] % (Auto) Eos % (Auto) [place] # Seg Neutrophils % Seg Neuts % (Manual) Lymphocytes % (Manual) Seg Neutrophils # Seg Neutrophils # Man Lymphocytes # (Manual) APTT POC ABG pH ABG pH POC ABG pCO2 POC ABG pO2 ABG pO2 ABG HCO3 ABG Base Excess ABG Hemoglobin VBG pH Oxyhemoglobin Sodium Potassium Chloride Carbon Dioxide BUN Creatinine Glucose POC Glucose 261 H 217 H 172 H Lactic Acid Calcium AST ALT Alkaline Phosphatase CK-MB (CK-2) CK-MB (CK-2) Rel Index Total Protein Albumin TSH Urine WBC (Auto) Salicylates 02/13/17 02/13/17 02/13/17 00:25 06:46 11:26 WBC RBC Hgb Hct MCV MCH RDW Plt Count Lymph % (Auto) [place] % (Auto) Eos % (Auto) [place] # Seg Neutrophils % Seg Neuts % (Manual) Lymphocytes % (Manual) Seg Neutrophils # Seg Neutrophils # Man Lymphocytes # (Manual) APTT POC ABG pH ABG pH POC ABG pCO2 POC ABG pO2 ABG pO2 ABG HCO3 ABG Base Excess ABG Hemoglobin VBG pH Oxyhemoglobin Sodium Potassium Chloride Carbon Dioxide BUN Creatinine Glucose POC Glucose 207 H 219 H 231 H Lactic Acid Calcium AST ALT Alkaline Phosphatase CK-MB (CK-2) CK-MB (CK-2) Rel Index Total Protein Albumin TSH Urine WBC (Auto) Salicylates 02/13/17 02/13/17 02/14/17 17:12 23:44 05:44 WBC RBC Hgb Hct MCV MCH RDW Plt Count Lymph % (Auto) [place] % (Auto) Eos % (Auto) [place] # Seg Neutrophils % Seg Neuts % (Manual) Lymphocytes % (Manual) Seg Neutrophils # Seg Neutrophils # Man Lymphocytes # (Manual) APTT POC ABG pH ABG pH POC ABG pCO2 POC ABG pO2 ABG pO2 ABG HCO3 ABG Base Excess ABG Hemoglobin VBG pH Oxyhemoglobin Sodium Potassium Chloride Carbon Dioxide BUN Creatinine Glucose POC Glucose 190 H 256 H 184 H Lactic Acid Calcium AST ALT Alkaline Phosphatase CK-MB (CK-2) CK-MB (CK-2) Rel Index Total Protein Albumin TSH Urine WBC (Auto) Salicylates 02/14/17 02/14/17 02/14/17 12:21 17:57 23:18 WBC RBC Hgb Hct MCV MCH RDW Plt Count Lymph % (Auto) [place] % (Auto) Eos % (Auto) [place] # Seg Neutrophils % Seg Neuts % (Manual) Lymphocytes % (Manual) Seg Neutrophils # Seg Neutrophils # Man Lymphocytes # (Manual) APTT POC ABG pH ABG pH POC ABG pCO2 POC ABG pO2 ABG pO2 ABG HCO3 ABG Base Excess ABG Hemoglobin VBG pH Oxyhemoglobin Sodium Potassium Chloride Carbon Dioxide BUN Creatinine Glucose POC Glucose 233 H 155 H 165 H Lactic Acid Calcium AST ALT Alkaline Phosphatase CK-MB (CK-2) CK-MB (CK-2) Rel Index Total Protein Albumin TSH Urine WBC (Auto) Salicylates 02/15/17 02/15/17 02/15/17 05:33 11:45 17:20 WBC RBC Hgb Hct MCV MCH RDW Plt Count Lymph % (Auto) [place] % (Auto) Eos % (Auto) [place] # Seg Neutrophils % Seg Neuts % (Manual) Lymphocytes % (Manual) Seg Neutrophils # Seg Neutrophils # Man Lymphocytes # (Manual) APTT POC ABG pH ABG pH POC ABG pCO2 POC ABG pO2 ABG pO2 ABG HCO3 ABG Base Excess ABG Hemoglobin VBG pH Oxyhemoglobin Sodium Potassium Chloride Carbon Dioxide BUN Creatinine Glucose POC Glucose 239 H 130 H 189 H Lactic Acid Calcium AST ALT Alkaline Phosphatase CK-MB (CK-2) CK-MB (CK-2) Rel Index Total Protein Albumin TSH Urine WBC (Auto) Salicylates 02/16/17 02/16/17 02/16/17 00:14 05:09 12:31 WBC RBC Hgb Hct MCV MCH RDW Plt Count Lymph % (Auto) [place] % (Auto) Eos % (Auto) [place] # Seg Neutrophils % Seg Neuts % (Manual) Lymphocytes % (Manual) Seg Neutrophils # Seg Neutrophils # Man Lymphocytes # (Manual) APTT POC ABG pH ABG pH POC ABG pCO2 POC ABG pO2 ABG pO2 ABG HCO3 ABG Base Excess ABG Hemoglobin VBG pH Oxyhemoglobin Sodium Potassium Chloride Carbon Dioxide BUN Creatinine Glucose POC Glucose 197 H 226 H 178 H Lactic Acid Calcium AST ALT Alkaline Phosphatase CK-MB (CK-2) CK-MB (CK-2) Rel Index Total Protein Albumin TSH Urine WBC (Auto) Salicylates 02/16/17 02/16/17 02/17/17 16:35 23:49 05:37 WBC RBC Hgb Hct MCV MCH RDW Plt Count Lymph % (Auto) [place] % (Auto) Eos % (Auto) [place] # Seg Neutrophils % Seg Neuts % (Manual) Lymphocytes % (Manual) Seg Neutrophils # Seg Neutrophils # Man Lymphocytes # (Manual) APTT POC ABG pH ABG pH POC ABG pCO2 POC ABG pO2 ABG pO2 ABG HCO3 ABG Base Excess ABG Hemoglobin VBG pH Oxyhemoglobin Sodium Potassium Chloride Carbon Dioxide BUN Creatinine Glucose POC Glucose 174 H 62 L 153 H Lactic Acid Calcium AST ALT Alkaline Phosphatase CK-MB (CK-2) CK-MB (CK-2) Rel Index Total Protein Albumin TSH Urine WBC (Auto) Salicylates 02/17/17 02/17/17 02/17/17 11:39 17:02 22:24 WBC RBC Hgb Hct MCV MCH RDW Plt Count Lymph % (Auto) [place] % (Auto) Eos % (Auto) [place] # Seg Neutrophils % Seg Neuts % (Manual) Lymphocytes % (Manual) Seg Neutrophils # Seg Neutrophils # Man Lymphocytes # (Manual) APTT POC ABG pH ABG pH POC ABG pCO2 POC ABG pO2 ABG pO2 ABG HCO3 ABG Base Excess ABG Hemoglobin VBG pH Oxyhemoglobin Sodium Potassium Chloride Carbon Dioxide BUN Creatinine Glucose POC Glucose 231 H 112 H 116 H Lactic Acid Calcium AST ALT Alkaline Phosphatase CK-MB (CK-2) CK-MB (CK-2) Rel Index Total Protein Albumin TSH Urine WBC (Auto) Salicylates 02/18/17 02/19/17 02/19/17 15:34 05:09 07:57 WBC RBC Hgb Hct MCV MCH RDW Plt Count Lymph % (Auto) [place] % (Auto) Eos % (Auto) [place] # Seg Neutrophils % Seg Neuts % (Manual) Lymphocytes % (Manual) Seg Neutrophils # Seg Neutrophils # Man Lymphocytes # (Manual) APTT POC ABG pH ABG pH POC ABG pCO2 POC ABG pO2 ABG pO2 ABG HCO3 ABG Base Excess ABG Hemoglobin VBG pH Oxyhemoglobin Sodium Potassium Chloride Carbon Dioxide BUN Creatinine Glucose POC Glucose 215 H 218 H 283 H Lactic Acid Calcium AST ALT Alkaline Phosphatase CK-MB (CK-2) CK-MB (CK-2) Rel Index Total Protein Albumin TSH Urine WBC (Auto) Salicylates 02/19/17 02/19/17 02/20/17 14:49 22:10 05:10 WBC RBC Hgb Hct MCV MCH RDW Plt Count Lymph % (Auto) [place] % (Auto) Eos % (Auto) [place] # Seg Neutrophils % Seg Neuts % (Manual) Lymphocytes % (Manual) Seg Neutrophils # Seg Neutrophils # Man Lymphocytes # (Manual) APTT POC ABG pH ABG pH POC ABG pCO2 POC ABG pO2 ABG pO2 ABG HCO3 ABG Base Excess ABG Hemoglobin VBG pH Oxyhemoglobin Sodium Potassium Chloride Carbon Dioxide BUN Creatinine Glucose POC Glucose 290 H 169 H 209 H Lactic Acid Calcium AST ALT Alkaline Phosphatase CK-MB (CK-2) CK-MB (CK-2) Rel Index Total Protein Albumin TSH Urine WBC (Auto) Salicylates 02/20/17 02/20/17 02/21/17 15:05 21:52 02:00 WBC RBC Hgb Hct MCV MCH RDW Plt Count Lymph % (Auto) [place] % (Auto) Eos % (Auto) [place] # Seg Neutrophils % Seg Neuts % (Manual) Lymphocytes % (Manual) Seg Neutrophils # Seg Neutrophils # Man Lymphocytes # (Manual) APTT POC ABG pH ABG pH POC ABG pCO2 POC ABG pO2 ABG pO2 ABG HCO3 ABG Base Excess ABG Hemoglobin VBG pH Oxyhemoglobin Sodium Potassium Chloride Carbon Dioxide BUN Creatinine Glucose POC Glucose 172 H 209 H 216 H Lactic Acid Calcium AST ALT Alkaline Phosphatase CK-MB (CK-2) CK-MB (CK-2) Rel Index Total Protein Albumin TSH Urine WBC (Auto) Salicylates 02/21/17 02/21/17 02/21/17 04:54 14:43 17:47 WBC RBC Hgb Hct MCV MCH RDW Plt Count Lymph % (Auto) [place] % (Auto) Eos % (Auto) [place] # Seg Neutrophils % Seg Neuts % (Manual) Lymphocytes % (Manual) Seg Neutrophils # Seg Neutrophils # Man Lymphocytes # (Manual) APTT POC ABG pH ABG pH POC ABG pCO2 POC ABG pO2 ABG pO2 ABG HCO3 ABG Base Excess ABG Hemoglobin VBG pH Oxyhemoglobin Sodium Potassium Chloride Carbon Dioxide BUN Creatinine Glucose POC Glucose 227 H 290 H 220 H Lactic Acid Calcium AST ALT Alkaline Phosphatase CK-MB (CK-2) CK-MB (CK-2) Rel Index Total Protein Albumin TSH Urine WBC (Auto) Salicylates 02/21/17 02/22/17 02/22/17 22:02 04:52 15:25 WBC RBC Hgb Hct MCV MCH RDW Plt Count Lymph % (Auto) [place] % (Auto) Eos % (Auto) [place] # Seg Neutrophils % Seg Neuts % (Manual) Lymphocytes % (Manual) Seg Neutrophils # Seg Neutrophils # Man Lymphocytes # (Manual) APTT POC ABG pH ABG pH POC ABG pCO2 POC ABG pO2 ABG pO2 ABG HCO3 ABG Base Excess ABG Hemoglobin VBG pH Oxyhemoglobin Sodium Potassium Chloride Carbon Dioxide BUN Creatinine Glucose POC Glucose 246 H 212 H 236 H Lactic Acid Calcium AST ALT Alkaline Phosphatase CK-MB (CK-2) CK-MB (CK-2) Rel Index Total Protein Albumin TSH Urine WBC (Auto) Salicylates 02/22/17 02/23/17 02/23/17 21:33 06:04 10:00 WBC RBC Hgb Hct MCV MCH RDW Plt Count Lymph % (Auto) [place] % (Auto) Eos % (Auto) [place] # Seg Neutrophils % Seg Neuts % (Manual) Lymphocytes % (Manual) Seg Neutrophils # Seg Neutrophils # Man Lymphocytes # (Manual) APTT POC ABG pH ABG pH POC ABG pCO2 POC ABG pO2 ABG pO2 ABG HCO3 ABG Base Excess ABG Hemoglobin VBG pH Oxyhemoglobin Sodium Potassium Chloride Carbon Dioxide BUN Creatinine Glucose POC Glucose 255 H 208 H 174 H Lactic Acid Calcium AST ALT Alkaline Phosphatase CK-MB (CK-2) CK-MB (CK-2) Rel Index Total Protein Albumin TSH Urine WBC (Auto) Salicylates 02/23/17 02/23/17 02/23/17 12:52 17:15 21:51 WBC RBC Hgb Hct MCV MCH RDW Plt Count Lymph % (Auto) [place] % (Auto) Eos % (Auto) [place] # Seg Neutrophils % Seg Neuts % (Manual) Lymphocytes % (Manual) Seg Neutrophils # Seg Neutrophils # Man Lymphocytes # (Manual) APTT POC ABG pH ABG pH POC ABG pCO2 POC ABG pO2 ABG pO2 ABG HCO3 ABG Base Excess ABG Hemoglobin VBG pH Oxyhemoglobin Sodium Potassium Chloride Carbon Dioxide BUN Creatinine Glucose POC Glucose 203 H 269 H 205 H Lactic Acid Calcium AST ALT Alkaline Phosphatase CK-MB (CK-2) CK-MB (CK-2) Rel Index Total Protein Albumin TSH Urine WBC (Auto) Salicylates 02/24/17 02/24/17 02/24/17 10:23 17:45 21:24 WBC RBC Hgb Hct MCV MCH RDW Plt Count Lymph % (Auto) [place] % (Auto) Eos % (Auto) [place] # Seg Neutrophils % Seg Neuts % (Manual) Lymphocytes % (Manual) Seg Neutrophils # Seg Neutrophils # Man Lymphocytes # (Manual) APTT POC ABG pH ABG pH POC ABG pCO2 POC ABG pO2 ABG pO2 ABG HCO3 ABG Base Excess ABG Hemoglobin VBG pH Oxyhemoglobin Sodium Potassium Chloride Carbon Dioxide BUN Creatinine Glucose POC Glucose 280 H 239 H 254 H Lactic Acid Calcium AST ALT Alkaline Phosphatase CK-MB (CK-2) CK-MB (CK-2) Rel Index Total Protein Albumin TSH Urine WBC (Auto) Salicylates 02/25/17 02/25/17 02/25/17 02:12 05:17 14:32 WBC RBC Hgb Hct MCV MCH RDW Plt Count Lymph % (Auto) [place] % (Auto) Eos % (Auto) [place] # Seg Neutrophils % Seg Neuts % (Manual) Lymphocytes % (Manual) Seg Neutrophils # Seg Neutrophils # Man Lymphocytes # (Manual) APTT POC ABG pH ABG pH POC ABG pCO2 POC ABG pO2 ABG pO2 ABG HCO3 ABG Base Excess ABG Hemoglobin VBG pH Oxyhemoglobin Sodium Potassium Chloride Carbon Dioxide BUN Creatinine Glucose POC Glucose 296 H 332 H 353 H Lactic Acid Calcium AST ALT Alkaline Phosphatase CK-MB (CK-2) CK-MB (CK-2) Rel Index Total Protein Albumin TSH Urine WBC (Auto) Salicylates 02/25/17 02/26/17 02/26/17 22:14 00:37 05:52 WBC RBC Hgb Hct MCV MCH RDW Plt Count Lymph % (Auto) [place] % (Auto) Eos % (Auto) [place] # Seg Neutrophils % Seg Neuts % (Manual) Lymphocytes % (Manual) Seg Neutrophils # Seg Neutrophils # Man Lymphocytes # (Manual) APTT POC ABG pH ABG pH POC ABG pCO2 POC ABG pO2 ABG pO2 ABG HCO3 ABG Base Excess ABG Hemoglobin VBG pH Oxyhemoglobin Sodium Potassium Chloride Carbon Dioxide BUN Creatinine Glucose POC Glucose 201 H 233 H 269 H Lactic Acid Calcium AST ALT Alkaline Phosphatase CK-MB (CK-2) CK-MB (CK-2) Rel Index Total Protein Albumin TSH Urine WBC (Auto) Salicylates 02/26/17 02/26/17 02/26/17 11:48 13:49 21:26 WBC RBC Hgb Hct MCV MCH RDW Plt Count Lymph % (Auto) [place] % (Auto) Eos % (Auto) [place] # Seg Neutrophils % Seg Neuts % (Manual) Lymphocytes % (Manual) Seg Neutrophils # Seg Neutrophils # Man Lymphocytes # (Manual) APTT POC ABG pH ABG pH POC ABG pCO2 POC ABG pO2 ABG pO2 ABG HCO3 ABG Base Excess ABG Hemoglobin VBG pH Oxyhemoglobin Sodium Potassium Chloride Carbon Dioxide BUN Creatinine Glucose POC Glucose 333 H 322 H 244 H Lactic Acid Calcium AST ALT Alkaline Phosphatase CK-MB (CK-2) CK-MB (CK-2) Rel Index Total Protein Albumin TSH Urine WBC (Auto) Salicylates 02/27/17 02/27/17 02/27/17 05:27 13:51 21:48 WBC RBC Hgb Hct MCV MCH RDW Plt Count Lymph % (Auto) [place] % (Auto) Eos % (Auto) [place] # Seg Neutrophils % Seg Neuts % (Manual) Lymphocytes % (Manual) Seg Neutrophils # Seg Neutrophils # Man Lymphocytes # (Manual) APTT POC ABG pH ABG pH POC ABG pCO2 POC ABG pO2 ABG pO2 ABG HCO3 ABG Base Excess ABG Hemoglobin VBG pH Oxyhemoglobin Sodium Potassium Chloride Carbon Dioxide BUN Creatinine Glucose POC Glucose 217 H 239 H 254 H Lactic Acid Calcium AST ALT Alkaline Phosphatase CK-MB (CK-2) CK-MB (CK-2) Rel Index Total Protein Albumin TSH Urine WBC (Auto) Salicylates 02/28/17 02/28/17 02/28/17 05:38 11:00 19:44 WBC RBC Hgb Hct MCV MCH RDW Plt Count Lymph % (Auto) [place] % (Auto) Eos % (Auto) [place] # Seg Neutrophils % Seg Neuts % (Manual) Lymphocytes % (Manual) Seg Neutrophils # Seg Neutrophils # Man Lymphocytes # (Manual) APTT POC ABG pH ABG pH POC ABG pCO2 POC ABG pO2 ABG pO2 ABG HCO3 ABG Base Excess ABG Hemoglobin VBG pH Oxyhemoglobin Sodium Potassium Chloride Carbon Dioxide BUN Creatinine Glucose POC Glucose 325 H 203 H 116 H Lactic Acid Calcium AST ALT Alkaline Phosphatase CK-MB (CK-2) CK-MB (CK-2) Rel Index Total Protein Albumin TSH Urine WBC (Auto) Salicylates 03/01/17 03/01/17 03/01/17 00:08 05:31 12:17 WBC RBC Hgb Hct MCV MCH RDW Plt Count Lymph % (Auto) [place] % (Auto) Eos % (Auto) [place] # Seg Neutrophils % Seg Neuts % (Manual) Lymphocytes % (Manual) Seg Neutrophils # Seg Neutrophils # Man Lymphocytes # (Manual) APTT POC ABG pH ABG pH POC ABG pCO2 POC ABG pO2 ABG pO2 ABG HCO3 ABG Base Excess ABG Hemoglobin VBG pH Oxyhemoglobin Sodium Potassium Chloride Carbon Dioxide BUN Creatinine Glucose POC Glucose 202 H 183 H 184 H Lactic Acid Calcium AST ALT Alkaline Phosphatase CK-MB (CK-2) CK-MB (CK-2) Rel Index Total Protein Albumin TSH Urine WBC (Auto) Salicylates 03/02/17 03/02/17 03/02/17 00:12 05:58 18:22 WBC RBC Hgb Hct MCV MCH RDW Plt Count Lymph % (Auto) [place] % (Auto) Eos % (Auto) [place] # Seg Neutrophils % Seg Neuts % (Manual) Lymphocytes % (Manual) Seg Neutrophils # Seg Neutrophils # Man Lymphocytes # (Manual) APTT POC ABG pH ABG pH POC ABG pCO2 POC ABG pO2 ABG pO2 ABG HCO3 ABG Base Excess ABG Hemoglobin VBG pH Oxyhemoglobin Sodium Potassium Chloride Carbon Dioxide BUN Creatinine Glucose POC Glucose 117 H 176 H 156 H Lactic Acid Calcium AST ALT Alkaline Phosphatase CK-MB (CK-2) CK-MB (CK-2) Rel Index Total Protein Albumin TSH Urine WBC (Auto) Salicylates 03/02/17 03/03/17 03/03/17 23:51 05:44 11:32 WBC RBC Hgb Hct MCV MCH RDW Plt Count Lymph % (Auto) [place] % (Auto) Eos % (Auto) [place] # Seg Neutrophils % Seg Neuts % (Manual) Lymphocytes % (Manual) Seg Neutrophils # Seg Neutrophils # Man Lymphocytes # (Manual) APTT POC ABG pH ABG pH POC ABG pCO2 POC ABG pO2 ABG pO2 ABG HCO3 ABG Base Excess ABG Hemoglobin VBG pH Oxyhemoglobin Sodium Potassium Chloride Carbon Dioxide BUN Creatinine Glucose POC Glucose 211 H 117 H 133 H Lactic Acid Calcium AST ALT Alkaline Phosphatase CK-MB (CK-2) CK-MB (CK-2) Rel Index Total Protein Albumin TSH Urine WBC (Auto) Salicylates 03/03/17 03/03/17 03/04/17 17:43 23:17 05:30 WBC RBC Hgb Hct MCV MCH RDW Plt Count Lymph % (Auto) [place] % (Auto) Eos % (Auto) [place] # Seg Neutrophils % Seg Neuts % (Manual) Lymphocytes % (Manual) Seg Neutrophils # Seg Neutrophils # Man Lymphocytes # (Manual) APTT POC ABG pH ABG pH POC ABG pCO2 POC ABG pO2 ABG pO2 ABG HCO3 ABG Base Excess ABG Hemoglobin VBG pH Oxyhemoglobin Sodium Potassium Chloride Carbon Dioxide BUN Creatinine Glucose POC Glucose 206 H 170 H 126 H Lactic Acid Calcium AST ALT Alkaline Phosphatase CK-MB (CK-2) CK-MB (CK-2) Rel Index Total Protein Albumin TSH Urine WBC (Auto) Salicylates 03/04/17 03/04/17 03/05/17 12:17 17:27 05:20 WBC RBC Hgb Hct MCV MCH RDW Plt Count Lymph % (Auto) [place] % (Auto) Eos % (Auto) [place] # Seg Neutrophils % Seg Neuts % (Manual) Lymphocytes % (Manual) Seg Neutrophils # Seg Neutrophils # Man Lymphocytes # (Manual) APTT POC ABG pH ABG pH POC ABG pCO2 POC ABG pO2 ABG pO2 ABG HCO3 ABG Base Excess ABG Hemoglobin VBG pH Oxyhemoglobin Sodium Potassium Chloride Carbon Dioxide BUN Creatinine Glucose POC Glucose 135 H 121 H 185 H Lactic Acid Calcium AST ALT Alkaline Phosphatase CK-MB (CK-2) CK-MB (CK-2) Rel Index Total Protein Albumin TSH Urine WBC (Auto) Salicylates 03/05/17 03/06/17 03/06/17 11:50 11:52 17:34 WBC RBC Hgb Hct MCV MCH RDW Plt Count Lymph % (Auto) [place] % (Auto) Eos % (Auto) [place] # Seg Neutrophils % Seg Neuts % (Manual) Lymphocytes % (Manual) Seg Neutrophils # Seg Neutrophils # Man Lymphocytes # (Manual) APTT POC ABG pH ABG pH POC ABG pCO2 POC ABG pO2 ABG pO2 ABG HCO3 ABG Base Excess ABG Hemoglobin VBG pH Oxyhemoglobin Sodium Potassium Chloride Carbon Dioxide BUN Creatinine Glucose POC Glucose 116 H 133 H 181 H Lactic Acid Calcium AST ALT Alkaline Phosphatase CK-MB (CK-2) CK-MB (CK-2) Rel Index Total Protein Albumin TSH Urine WBC (Auto) Salicylates 03/07/17 03/07/17 03/07/17 05:21 11:36 17:49 WBC RBC Hgb Hct MCV MCH RDW Plt Count Lymph % (Auto) [place] % (Auto) Eos % (Auto) [place] # Seg Neutrophils % Seg Neuts % (Manual) Lymphocytes % (Manual) Seg Neutrophils # Seg Neutrophils # Man Lymphocytes # (Manual) APTT POC ABG pH ABG pH POC ABG pCO2 POC ABG pO2 ABG pO2 ABG HCO3 ABG Base Excess ABG Hemoglobin VBG pH Oxyhemoglobin Sodium Potassium Chloride Carbon Dioxide BUN Creatinine Glucose POC Glucose 159 H 137 H 158 H Lactic Acid Calcium AST ALT Alkaline Phosphatase CK-MB (CK-2) CK-MB (CK-2) Rel Index Total Protein Albumin TSH Urine WBC (Auto) Salicylates 03/08/17 03/08/17 03/08/17 05:51 13:58 23:50 WBC RBC Hgb Hct MCV MCH RDW Plt Count Lymph % (Auto) [place] % (Auto) Eos % (Auto) [place] # Seg Neutrophils % Seg Neuts % (Manual) Lymphocytes % (Manual) Seg Neutrophils # Seg Neutrophils # Man Lymphocytes # (Manual) APTT POC ABG pH ABG pH POC ABG pCO2 POC ABG pO2 ABG pO2 ABG HCO3 ABG Base Excess ABG Hemoglobin VBG pH Oxyhemoglobin Sodium Potassium Chloride Carbon Dioxide BUN Creatinine Glucose POC Glucose 122 H 182 H 114 H Lactic Acid Calcium AST ALT Alkaline Phosphatase CK-MB (CK-2) CK-MB (CK-2) Rel Index Total Protein Albumin TSH Urine WBC (Auto) Salicylates 03/09/17 03/09/17 03/09/17 05:21 05:51 05:51 WBC RBC 3.61 L Hgb 9.5 L Hct 28.3 L MCV 79 L MCH 26 L RDW 17.8 H Plt Count Lymph % (Auto) [place] % (Auto) Eos % (Auto) [place] # Seg Neutrophils % Seg Neuts % (Manual) Lymphocytes % (Manual) Seg Neutrophils # Seg Neutrophils # Man Lymphocytes # (Manual) APTT POC ABG pH ABG pH POC ABG pCO2 POC ABG pO2 ABG pO2 ABG HCO3 ABG Base Excess ABG Hemoglobin VBG pH Oxyhemoglobin Sodium 134 L Potassium Chloride 95.5 L Carbon Dioxide BUN 33 H Creatinine 0.5 L Glucose 143 H POC Glucose 153 H Lactic Acid Calcium AST ALT Alkaline Phosphatase CK-MB (CK-2) CK-MB (CK-2) Rel Index Total Protein Albumin TSH Urine WBC (Auto) Salicylates 03/09/17 03/09/17 03/09/17 12:10 18:13 21:00 WBC RBC Hgb Hct MCV MCH RDW Plt Count Lymph % (Auto) [place] % (Auto) Eos % (Auto) [place] # Seg Neutrophils % Seg Neuts % (Manual) Lymphocytes % (Manual) Seg Neutrophils # Seg Neutrophils # Man Lymphocytes # (Manual) APTT POC ABG pH ABG pH POC ABG pCO2 POC ABG pO2 ABG pO2 ABG HCO3 ABG Base Excess ABG Hemoglobin VBG pH Oxyhemoglobin Sodium Potassium Chloride Carbon Dioxide BUN Creatinine Glucose POC Glucose 203 H 221 H 198 H Lactic Acid Calcium AST ALT Alkaline Phosphatase CK-MB (CK-2) CK-MB (CK-2) Rel Index Total Protein Albumin TSH Urine WBC (Auto) Salicylates 03/09/17 03/10/17 03/10/17 23:58 05:09 05:09 WBC RBC Hgb 10.3 L Hct 30.5 L MCV 78 L MCH 26 L RDW 17.9 H Plt Count Lymph % (Auto) [place] % (Auto) 10.0 H Eos % (Auto) 6.0 H [place] # Seg Neutrophils % Seg Neuts % (Manual) Lymphocytes % (Manual) Seg Neutrophils # Seg Neutrophils # Man Lymphocytes # (Manual) APTT POC ABG pH ABG pH POC ABG pCO2 POC ABG pO2 ABG pO2 ABG HCO3 ABG Base Excess ABG Hemoglobin VBG pH Oxyhemoglobin Sodium 132 L Potassium Chloride 92.2 L Carbon Dioxide BUN 33 H Creatinine 0.5 L Glucose 50 L POC Glucose 167 H Lactic Acid Calcium AST ALT Alkaline Phosphatase CK-MB (CK-2) CK-MB (CK-2) Rel Index Total Protein Albumin TSH Urine WBC (Auto) Salicylates 03/10/17 03/10/17 03/10/17 05:33 05:34 11:48 WBC RBC Hgb Hct MCV MCH RDW Plt Count Lymph % (Auto) [place] % (Auto) Eos % (Auto) [place] # Seg Neutrophils % Seg Neuts % (Manual) Lymphocytes % (Manual) Seg Neutrophils # Seg Neutrophils # Man Lymphocytes # (Manual) APTT POC ABG pH ABG pH POC ABG pCO2 POC ABG pO2 ABG pO2 ABG HCO3 ABG Base Excess ABG Hemoglobin VBG pH Oxyhemoglobin Sodium Potassium Chloride Carbon Dioxide BUN Creatinine Glucose POC Glucose 52 L 53 L 148 H Lactic Acid Calcium AST ALT Alkaline Phosphatase CK-MB (CK-2) CK-MB (CK-2) Rel Index Total Protein Albumin TSH Urine WBC (Auto) Salicylates 03/10/17 03/10/17 03/11/17 17:53 23:47 05:18 WBC RBC Hgb Hct MCV MCH RDW Plt Count Lymph % (Auto) [place] % (Auto) Eos % (Auto) [place] # Seg Neutrophils % Seg Neuts % (Manual) Lymphocytes % (Manual) Seg Neutrophils # Seg Neutrophils # Man Lymphocytes # (Manual) APTT POC ABG pH ABG pH POC ABG pCO2 POC ABG pO2 ABG pO2 ABG HCO3 ABG Base Excess ABG Hemoglobin VBG pH Oxyhemoglobin Sodium Potassium Chloride Carbon Dioxide BUN Creatinine Glucose POC Glucose 189 H 398 H 126 H Lactic Acid Calcium AST ALT Alkaline Phosphatase CK-MB (CK-2) CK-MB (CK-2) Rel Index Total Protein Albumin TSH Urine WBC (Auto) Salicylates 03/11/17 03/11/17 03/11/17 11:53 17:30 23:10 WBC RBC Hgb Hct MCV MCH RDW Plt Count Lymph % (Auto) [place] % (Auto) Eos % (Auto) [place] # Seg Neutrophils % Seg Neuts % (Manual) Lymphocytes % (Manual) Seg Neutrophils # Seg Neutrophils # Man Lymphocytes # (Manual) APTT POC ABG pH ABG pH POC ABG pCO2 POC ABG pO2 ABG pO2 ABG HCO3 ABG Base Excess ABG Hemoglobin VBG pH Oxyhemoglobin Sodium Potassium Chloride Carbon Dioxide BUN Creatinine Glucose POC Glucose 198 H 142 H 244 H Lactic Acid Calcium AST ALT Alkaline Phosphatase CK-MB (CK-2) CK-MB (CK-2) Rel Index Total Protein Albumin TSH Urine WBC (Auto) Salicylates 03/12/17 03/12/17 03/12/17 04:36 11:49 17:23 WBC RBC Hgb Hct MCV MCH RDW Plt Count Lymph % (Auto) [place] % (Auto) Eos % (Auto) [place] # Seg Neutrophils % Seg Neuts % (Manual) Lymphocytes % (Manual) Seg Neutrophils # Seg Neutrophils # Man Lymphocytes # (Manual) APTT POC ABG pH ABG pH POC ABG pCO2 POC ABG pO2 ABG pO2 ABG HCO3 ABG Base Excess ABG Hemoglobin VBG pH Oxyhemoglobin Sodium Potassium Chloride Carbon Dioxide BUN Creatinine Glucose POC Glucose 205 H 197 H 209 H Lactic Acid Calcium AST ALT Alkaline Phosphatase CK-MB (CK-2) CK-MB (CK-2) Rel Index Total Protein Albumin TSH Urine WBC (Auto) Salicylates 03/12/17 03/13/17 03/13/17 23:51 05:32 11:43 WBC RBC Hgb Hct MCV MCH RDW Plt Count Lymph % (Auto) [place] % (Auto) Eos % (Auto) [place] # Seg Neutrophils % Seg Neuts % (Manual) Lymphocytes % (Manual) Seg Neutrophils # Seg Neutrophils # Man Lymphocytes # (Manual) APTT POC ABG pH ABG pH POC ABG pCO2 POC ABG pO2 ABG pO2 ABG HCO3 ABG Base Excess ABG Hemoglobin VBG pH Oxyhemoglobin Sodium Potassium Chloride Carbon Dioxide BUN Creatinine Glucose POC Glucose 210 H 154 H 164 H Lactic Acid Calcium AST ALT Alkaline Phosphatase CK-MB (CK-2) CK-MB (CK-2) Rel Index Total Protein Albumin TSH Urine WBC (Auto) Salicylates 03/13/17 03/13/17 03/14/17 17:11 23:26 05:42 WBC RBC Hgb Hct MCV MCH RDW Plt Count Lymph % (Auto) [place] % (Auto) Eos % (Auto) [place] # Seg Neutrophils % Seg Neuts % (Manual) Lymphocytes % (Manual) Seg Neutrophils # Seg Neutrophils # Man Lymphocytes # (Manual) APTT POC ABG pH ABG pH POC ABG pCO2 POC ABG pO2 ABG pO2 ABG HCO3 ABG Base Excess ABG Hemoglobin VBG pH Oxyhemoglobin Sodium Potassium Chloride Carbon Dioxide BUN Creatinine Glucose POC Glucose 195 H 240 H 230 H Lactic Acid Calcium AST ALT Alkaline Phosphatase CK-MB (CK-2) CK-MB (CK-2) Rel Index Total Protein Albumin TSH Urine WBC (Auto) Salicylates 03/14/17 03/14/17 03/14/17 14:04 17:34 23:42 WBC RBC Hgb Hct MCV MCH RDW Plt Count Lymph % (Auto) [place] % (Auto) Eos % (Auto) [place] # Seg Neutrophils % Seg Neuts % (Manual) Lymphocytes % (Manual) Seg Neutrophils # Seg Neutrophils # Man Lymphocytes # (Manual) APTT POC ABG pH ABG pH POC ABG pCO2 POC ABG pO2 ABG pO2 ABG HCO3 ABG Base Excess ABG Hemoglobin VBG pH Oxyhemoglobin Sodium Potassium Chloride Carbon Dioxide BUN Creatinine Glucose POC Glucose 227 H 186 H 225 H Lactic Acid Calcium AST ALT Alkaline Phosphatase CK-MB (CK-2) CK-MB (CK-2) Rel Index Total Protein Albumin TSH Urine WBC (Auto) Salicylates 03/15/17 03/15/17 03/15/17 05:21 17:13 21:37 WBC RBC Hgb Hct MCV MCH RDW Plt Count Lymph % (Auto) [place] % (Auto) Eos % (Auto) [place] # Seg Neutrophils % Seg Neuts % (Manual) Lymphocytes % (Manual) Seg Neutrophils # Seg Neutrophils # Man Lymphocytes # (Manual) APTT POC ABG pH ABG pH POC ABG pCO2 POC ABG pO2 ABG pO2 ABG HCO3 ABG Base Excess ABG Hemoglobin VBG pH Oxyhemoglobin Sodium Potassium Chloride Carbon Dioxide BUN Creatinine Glucose POC Glucose 244 H 203 H 216 H Lactic Acid Calcium AST ALT Alkaline Phosphatase CK-MB (CK-2) CK-MB (CK-2) Rel Index Total Protein Albumin TSH Urine WBC (Auto) Salicylates 03/16/17 03/16/17 03/16/17 05:52 18:07 21:54 WBC RBC Hgb Hct MCV MCH RDW Plt Count Lymph % (Auto) [place] % (Auto) Eos % (Auto) [place] # Seg Neutrophils % Seg Neuts % (Manual) Lymphocytes % (Manual) Seg Neutrophils # Seg Neutrophils # Man Lymphocytes # (Manual) APTT POC ABG pH ABG pH POC ABG pCO2 POC ABG pO2 ABG pO2 ABG HCO3 ABG Base Excess ABG Hemoglobin VBG pH Oxyhemoglobin Sodium Potassium Chloride Carbon Dioxide BUN Creatinine Glucose POC Glucose 248 H 254 H 244 H Lactic Acid Calcium AST ALT Alkaline Phosphatase CK-MB (CK-2) CK-MB (CK-2) Rel Index Total Protein Albumin TSH Urine WBC (Auto) Salicylates 03/17/17 03/17/17 03/17/17 07:07 07:42 07:43 WBC RBC Hgb 9.7 L Hct 29.1 L MCV 78 L MCH 26 L RDW 17.4 H Plt Count Lymph % (Auto) [place] % (Auto) Eos % (Auto) [place] # Seg Neutrophils % Seg Neuts % (Manual) Lymphocytes % (Manual) Seg Neutrophils # Seg Neutrophils # Man Lymphocytes # (Manual) APTT POC ABG pH ABG pH POC ABG pCO2 POC ABG pO2 ABG pO2 ABG HCO3 ABG Base Excess ABG Hemoglobin VBG pH Oxyhemoglobin Sodium Potassium Chloride 96.6 L Carbon Dioxide BUN 30 H Creatinine 0.5 L Glucose 251 H POC Glucose 222 H Lactic Acid Calcium AST ALT Alkaline Phosphatase CK-MB (CK-2) CK-MB (CK-2) Rel Index Total Protein Albumin TSH Urine WBC (Auto) Salicylates 03/17/17 03/17/17 03/18/17 14:08 21:20 14:24 WBC RBC Hgb Hct MCV MCH RDW Plt Count Lymph % (Auto) [place] % (Auto) Eos % (Auto) [place] # Seg Neutrophils % Seg Neuts % (Manual) Lymphocytes % (Manual) Seg Neutrophils # Seg Neutrophils # Man Lymphocytes # (Manual) APTT POC ABG pH ABG pH POC ABG pCO2 POC ABG pO2 ABG pO2 ABG HCO3 ABG Base Excess ABG Hemoglobin VBG pH Oxyhemoglobin Sodium Potassium Chloride Carbon Dioxide BUN Creatinine Glucose POC Glucose 281 H 239 H 195 H Lactic Acid Calcium AST ALT Alkaline Phosphatase CK-MB (CK-2) CK-MB (CK-2) Rel Index Total Protein Albumin TSH Urine WBC (Auto) Salicylates 03/18/17 03/19/17 03/19/17 21:37 04:57 14:23 WBC RBC Hgb Hct MCV MCH RDW Plt Count Lymph % (Auto) [place] % (Auto) Eos % (Auto) [place] # Seg Neutrophils % Seg Neuts % (Manual) Lymphocytes % (Manual) Seg Neutrophils # Seg Neutrophils # Man Lymphocytes # (Manual) APTT POC ABG pH ABG pH POC ABG pCO2 POC ABG pO2 ABG pO2 ABG HCO3 ABG Base Excess ABG Hemoglobin VBG pH Oxyhemoglobin Sodium Potassium Chloride Carbon Dioxide BUN Creatinine Glucose POC Glucose 227 H 205 H 277 H Lactic Acid Calcium AST ALT Alkaline Phosphatase CK-MB (CK-2) CK-MB (CK-2) Rel Index Total Protein Albumin TSH Urine WBC (Auto) Salicylates 03/19/17 03/19/17 03/20/17 20:31 21:47 04:55 WBC RBC Hgb Hct MCV MCH RDW Plt Count Lymph % (Auto) [place] % (Auto) Eos % (Auto) [place] # Seg Neutrophils % Seg Neuts % (Manual) Lymphocytes % (Manual) Seg Neutrophils # Seg Neutrophils # Man Lymphocytes # (Manual) APTT POC ABG pH ABG pH POC ABG pCO2 POC ABG pO2 ABG pO2 ABG HCO3 ABG Base Excess ABG Hemoglobin VBG pH Oxyhemoglobin Sodium Potassium Chloride Carbon Dioxide BUN Creatinine Glucose POC Glucose 256 H 270 H 202 H Lactic Acid Calcium AST ALT Alkaline Phosphatase CK-MB (CK-2) CK-MB (CK-2) Rel Index Total Protein Albumin TSH Urine WBC (Auto) Salicylates 1203/20/17 03/21/17 14:09 21:40 05:09 WBC RBC Hgb Hct MCV MCH RDW Plt Count Lymph % (Auto) [place] % (Auto) Eos % (Auto) [place] # Seg Neutrophils % Seg Neuts % (Manual) Lymphocytes % (Manual) Seg Neutrophils # Seg Neutrophils # Man Lymphocytes # (Manual) APTT POC ABG pH ABG pH POC ABG pCO2 POC ABG pO2 ABG pO2 ABG HCO3 ABG Base Excess ABG Hemoglobin VBG pH Oxyhemoglobin Sodium Potassium Chloride Carbon Dioxide BUN Creatinine Glucose POC Glucose 200 H 214 H 233 H Lactic Acid Calcium AST ALT Alkaline Phosphatase CK-MB (CK-2) CK-MB (CK-2) Rel Index Total Protein Albumin TSH Urine WBC (Auto) Salicylates 03/21/17 03/21/17 03/22/17 14:06 21:26 05:43 WBC RBC Hgb Hct MCV MCH RDW Plt Count Lymph % (Auto) [place] % (Auto) Eos % (Auto) [place] # Seg Neutrophils % Seg Neuts % (Manual) Lymphocytes % (Manual) Seg Neutrophils # Seg Neutrophils # Man Lymphocytes # (Manual) APTT POC ABG pH ABG pH POC ABG pCO2 POC ABG pO2 ABG pO2 ABG HCO3 ABG Base Excess ABG Hemoglobin VBG pH Oxyhemoglobin Sodium Potassium Chloride Carbon Dioxide BUN Creatinine Glucose POC Glucose 250 H 155 H 251 H Lactic Acid Calcium AST ALT Alkaline Phosphatase CK-MB (CK-2) CK-MB (CK-2) Rel Index Total Protein Albumin TSH Urine WBC (Auto) Salicylates 03/22/17 03/22/17 03/23/17 13:46 21:16 00:23 WBC RBC Hgb Hct MCV MCH RDW Plt Count Lymph % (Auto) [place] % (Auto) Eos % (Auto) [place] # Seg Neutrophils % Seg Neuts % (Manual) Lymphocytes % (Manual) Seg Neutrophils # Seg Neutrophils # Man Lymphocytes # (Manual) APTT POC ABG pH ABG pH POC ABG pCO2 POC ABG pO2 ABG pO2 ABG HCO3 ABG Base Excess ABG Hemoglobin VBG pH Oxyhemoglobin Sodium Potassium Chloride Carbon Dioxide BUN Creatinine Glucose POC Glucose 269 H 197 H 126 H Lactic Acid Calcium AST ALT Alkaline Phosphatase CK-MB (CK-2) CK-MB (CK-2) Rel Index Total Protein Albumin TSH Urine WBC (Auto) Salicylates 03/23/17 03/23/17 03/23/17 05:39 14:06 21:39 WBC RBC Hgb Hct MCV MCH RDW Plt Count Lymph % (Auto) [place] % (Auto) Eos % (Auto) [place] # Seg Neutrophils % Seg Neuts % (Manual) Lymphocytes % (Manual) Seg Neutrophils # Seg Neutrophils # Man Lymphocytes # (Manual) APTT POC ABG pH ABG pH POC ABG pCO2 POC ABG pO2 ABG pO2 ABG HCO3 ABG Base Excess ABG Hemoglobin VBG pH Oxyhemoglobin Sodium Potassium Chloride Carbon Dioxide BUN Creatinine Glucose POC Glucose 234 H 241 H 248 H Lactic Acid Calcium AST ALT Alkaline Phosphatase CK-MB (CK-2) CK-MB (CK-2) Rel Index Total Protein Albumin TSH Urine WBC (Auto) Salicylates 03/24/17 03/24/17 03/25/17 05:06 21:46 05:38 WBC RBC Hgb Hct MCV MCH RDW Plt Count Lymph % (Auto) [place] % (Auto) Eos % (Auto) [place] # Seg Neutrophils % Seg Neuts % (Manual) Lymphocytes % (Manual) Seg Neutrophils # Seg Neutrophils # Man Lymphocytes # (Manual) APTT POC ABG pH ABG pH POC ABG pCO2 POC ABG pO2 ABG pO2 ABG HCO3 ABG Base Excess ABG Hemoglobin VBG pH Oxyhemoglobin Sodium Potassium Chloride Carbon Dioxide BUN Creatinine Glucose POC Glucose 232 H 276 H 242 H Lactic Acid Calcium AST ALT Alkaline Phosphatase CK-MB (CK-2) CK-MB (CK-2) Rel Index Total Protein Albumin TSH Urine WBC (Auto) Salicylates 03/25/17 03/25/17 03/26/17 14:30 23:14 13:53 WBC RBC Hgb Hct MCV MCH RDW Plt Count Lymph % (Auto) [place] % (Auto) Eos % (Auto) [place] # Seg Neutrophils % Seg Neuts % (Manual) Lymphocytes % (Manual) Seg Neutrophils # Seg Neutrophils # Man Lymphocytes # (Manual) APTT POC ABG pH ABG pH POC ABG pCO2 POC ABG pO2 ABG pO2 ABG HCO3 ABG Base Excess ABG Hemoglobin VBG pH Oxyhemoglobin Sodium Potassium Chloride Carbon Dioxide BUN Creatinine Glucose POC Glucose 246 H 208 H 195 H Lactic Acid Calcium AST ALT Alkaline Phosphatase CK-MB (CK-2) CK-MB (CK-2) Rel Index Total Protein Albumin TSH Urine WBC (Auto) Salicylates 03/26/17 03/27/17 03/27/17 21:58 05:18 14:57 WBC RBC Hgb Hct MCV MCH RDW Plt Count Lymph % (Auto) [place] % (Auto) Eos % (Auto) [place] # Seg Neutrophils % Seg Neuts % (Manual) Lymphocytes % (Manual) Seg Neutrophils # Seg Neutrophils # Man Lymphocytes # (Manual) APTT POC ABG pH ABG pH POC ABG pCO2 POC ABG pO2 ABG pO2 ABG HCO3 ABG Base Excess ABG Hemoglobin VBG pH Oxyhemoglobin Sodium Potassium Chloride Carbon Dioxide BUN Creatinine Glucose POC Glucose 241 H 199 H 269 H Lactic Acid Calcium AST ALT Alkaline Phosphatase CK-MB (CK-2) CK-MB (CK-2) Rel Index Total Protein Albumin TSH Urine WBC (Auto) Salicylates 03/27/17 03/28/17 03/28/17 21:33 13:52 21:29 WBC RBC Hgb Hct MCV MCH RDW Plt Count Lymph % (Auto) [place] % (Auto) Eos % (Auto) [place] # Seg Neutrophils % Seg Neuts % (Manual) Lymphocytes % (Manual) Seg Neutrophils # Seg Neutrophils # Man Lymphocytes # (Manual) APTT POC ABG pH ABG pH POC ABG pCO2 POC ABG pO2 ABG pO2 ABG HCO3 ABG Base Excess ABG Hemoglobin VBG pH Oxyhemoglobin Sodium Potassium Chloride Carbon Dioxide BUN Creatinine Glucose POC Glucose 214 H 243 H 286 H Lactic Acid Calcium AST ALT Alkaline Phosphatase CK-MB (CK-2) CK-MB (CK-2) Rel Index Total Protein Albumin TSH Urine WBC (Auto) Salicylates 03/29/17 03/29/17 03/29/17 04:32 04:32 13:58 WBC RBC Hgb 10.6 L Hct 32.9 L MCV 78 L MCH 25 L RDW 17.6 H Plt Count Lymph % (Auto) 38.0 H [place] % (Auto) 9.7 H Eos % (Auto) [place] # Seg Neutrophils % Seg Neuts % (Manual) Lymphocytes % (Manual) Seg Neutrophils # Seg Neutrophils # Man Lymphocytes # (Manual) APTT POC ABG pH ABG pH POC ABG pCO2 POC ABG pO2 ABG pO2 ABG HCO3 ABG Base Excess ABG Hemoglobin VBG pH Oxyhemoglobin Sodium 132 L Potassium Chloride 94.0 L Carbon Dioxide BUN 28 H Creatinine 0.5 L Glucose 236 H POC Glucose 171 H Lactic Acid Calcium AST ALT 71 H Alkaline Phosphatase 391 H CK-MB (CK-2) CK-MB (CK-2) Rel Index Total Protein 8.3 H Albumin 2.9 L TSH Urine WBC (Auto) Salicylates 03/29/17 03/30/17 03/30/17 20:59 06:07 11:52 WBC RBC Hgb Hct MCV MCH RDW Plt Count Lymph % (Auto) [place] % (Auto) Eos % (Auto) [place] # Seg Neutrophils % Seg Neuts % (Manual) Lymphocytes % (Manual) Seg Neutrophils # Seg Neutrophils # Man Lymphocytes # (Manual) APTT POC ABG pH ABG pH POC ABG pCO2 POC ABG pO2 ABG pO2 ABG HCO3 ABG Base Excess ABG Hemoglobin VBG pH Oxyhemoglobin Sodium Potassium Chloride Carbon Dioxide BUN Creatinine Glucose POC Glucose 215 H 259 H 197 H Lactic Acid Calcium AST ALT Alkaline Phosphatase CK-MB (CK-2) CK-MB (CK-2) Rel Index Total Protein Albumin TSH Urine WBC (Auto) Salicylates 03/30/17 03/31/17 03/31/17 21:34 05:42 14:34 WBC RBC Hgb Hct MCV MCH RDW Plt Count Lymph % (Auto) [place] % (Auto) Eos % (Auto) [place] # Seg Neutrophils % Seg Neuts % (Manual) Lymphocytes % (Manual) Seg Neutrophils # Seg Neutrophils # Man Lymphocytes # (Manual) APTT POC ABG pH ABG pH POC ABG pCO2 POC ABG pO2 ABG pO2 ABG HCO3 ABG Base Excess ABG Hemoglobin VBG pH Oxyhemoglobin Sodium Potassium Chloride Carbon Dioxide BUN Creatinine Glucose POC Glucose 207 H 184 H 213 H Lactic Acid Calcium AST ALT Alkaline Phosphatase CK-MB (CK-2) CK-MB (CK-2) Rel Index Total Protein Albumin TSH Urine WBC (Auto) Salicylates 03/31/17 04/01/17 04/01/17 21:32 05:53 13:48 WBC RBC Hgb Hct MCV MCH RDW Plt Count Lymph % (Auto) [place] % (Auto) Eos % (Auto) [place] # Seg Neutrophils % Seg Neuts % (Manual) Lymphocytes % (Manual) Seg Neutrophils # Seg Neutrophils # Man Lymphocytes # (Manual) APTT POC ABG pH ABG pH POC ABG pCO2 POC ABG pO2 ABG pO2 ABG HCO3 ABG Base Excess ABG Hemoglobin VBG pH Oxyhemoglobin Sodium Potassium Chloride Carbon Dioxide BUN Creatinine Glucose POC Glucose 249 H 225 H 256 H Lactic Acid Calcium AST ALT Alkaline Phosphatase CK-MB (CK-2) CK-MB (CK-2) Rel Index Total Protein Albumin TSH Urine WBC (Auto) Salicylates 04/01/17 04/02/17 04/02/17 21:34 05:32 14:05 WBC RBC Hgb Hct MCV MCH RDW Plt Count Lymph % (Auto) [place] % (Auto) Eos % (Auto) [place] # Seg Neutrophils % Seg Neuts % (Manual) Lymphocytes % (Manual) Seg Neutrophils # Seg Neutrophils # Man Lymphocytes # (Manual) APTT POC ABG pH ABG pH POC ABG pCO2 POC ABG pO2 ABG pO2 ABG HCO3 ABG Base Excess ABG Hemoglobin VBG pH Oxyhemoglobin Sodium Potassium Chloride Carbon Dioxide BUN Creatinine Glucose POC Glucose 292 H 220 H 187 H Lactic Acid Calcium AST ALT Alkaline Phosphatase CK-MB (CK-2) CK-MB (CK-2) Rel Index Total Protein Albumin TSH Urine WBC (Auto) Salicylates 04/02/17 04/03/17 04/03/17 21:57 04:49 14:12 WBC RBC Hgb Hct MCV MCH RDW Plt Count Lymph % (Auto) [place] % (Auto) Eos % (Auto) [place] # Seg Neutrophils % Seg Neuts % (Manual) Lymphocytes % (Manual) Seg Neutrophils # Seg Neutrophils # Man Lymphocytes # (Manual) APTT POC ABG pH ABG pH POC ABG pCO2 POC ABG pO2 ABG pO2 ABG HCO3 ABG Base Excess ABG Hemoglobin VBG pH Oxyhemoglobin Sodium Potassium Chloride Carbon Dioxide BUN Creatinine Glucose POC Glucose 285 H 256 H 197 H Lactic Acid Calcium AST ALT Alkaline Phosphatase CK-MB (CK-2) CK-MB (CK-2) Rel Index Total Protein Albumin TSH Urine WBC (Auto) Salicylates 04/03/17 04/04/17 04/04/17 21:11 05:20 13:18 WBC RBC Hgb Hct MCV MCH RDW Plt Count Lymph % (Auto) [place] % (Auto) Eos % (Auto) [place] # Seg Neutrophils % Seg Neuts % (Manual) Lymphocytes % (Manual) Seg Neutrophils # Seg Neutrophils # Man Lymphocytes # (Manual) APTT POC ABG pH ABG pH POC ABG pCO2 POC ABG pO2 ABG pO2 ABG HCO3 ABG Base Excess ABG Hemoglobin VBG pH Oxyhemoglobin Sodium Potassium Chloride Carbon Dioxide BUN Creatinine Glucose POC Glucose 166 H 228 H 252 H Lactic Acid Calcium AST ALT Alkaline Phosphatase CK-MB (CK-2) CK-MB (CK-2) Rel Index Total Protein Albumin TSH Urine WBC (Auto) Salicylates 04/04/17 04/05/17 04/05/17 21:51 06:14 09:54 WBC RBC Hgb Hct MCV MCH RDW Plt Count Lymph % (Auto) [place] % (Auto) Eos % (Auto) [place] # Seg Neutrophils % Seg Neuts % (Manual) Lymphocytes % (Manual) Seg Neutrophils # Seg Neutrophils # Man Lymphocytes # (Manual) APTT POC ABG pH ABG pH POC ABG pCO2 POC ABG pO2 ABG pO2 ABG HCO3 ABG Base Excess ABG Hemoglobin VBG pH Oxyhemoglobin Sodium Potassium Chloride Carbon Dioxide BUN Creatinine Glucose POC Glucose 252 H 152 H 181 H Lactic Acid Calcium AST ALT Alkaline Phosphatase CK-MB (CK-2) CK-MB (CK-2) Rel Index Total Protein Albumin TSH Urine WBC (Auto) Salicylates 04/05/17 04/05/17 04/05/17 14:49 17:34 21:38 WBC RBC Hgb Hct MCV MCH RDW Plt Count Lymph % (Auto) [place] % (Auto) Eos % (Auto) [place] # Seg Neutrophils % Seg Neuts % (Manual) Lymphocytes % (Manual) Seg Neutrophils # Seg Neutrophils # Man Lymphocytes # (Manual) APTT POC ABG pH ABG pH POC ABG pCO2 POC ABG pO2 ABG pO2 ABG HCO3 ABG Base Excess ABG Hemoglobin VBG pH Oxyhemoglobin Sodium Potassium Chloride Carbon Dioxide BUN Creatinine Glucose POC Glucose 219 H 268 H 278 H Lactic Acid Calcium AST ALT Alkaline Phosphatase CK-MB (CK-2) CK-MB (CK-2) Rel Index Total Protein Albumin TSH Urine WBC (Auto) Salicylates 04/06/17 04/06/17 04/07/17 15:04 22:14 05:09 WBC RBC Hgb Hct MCV MCH RDW Plt Count Lymph % (Auto) [place] % (Auto) Eos % (Auto) [place] # Seg Neutrophils % Seg Neuts % (Manual) Lymphocytes % (Manual) Seg Neutrophils # Seg Neutrophils # Man Lymphocytes # (Manual) APTT POC ABG pH ABG pH POC ABG pCO2 POC ABG pO2 ABG pO2 ABG HCO3 ABG Base Excess ABG Hemoglobin VBG pH Oxyhemoglobin Sodium Potassium Chloride Carbon Dioxide BUN Creatinine Glucose POC Glucose 285 H 106 H 334 H Lactic Acid Calcium AST ALT Alkaline Phosphatase CK-MB (CK-2) CK-MB (CK-2) Rel Index Total Protein Albumin TSH Urine WBC (Auto) Salicylates 04/07/17 04/07/17 04/08/17 14:45 21:48 05:28 WBC RBC Hgb Hct MCV MCH RDW Plt Count Lymph % (Auto) [place] % (Auto) Eos % (Auto) [place] # Seg Neutrophils % Seg Neuts % (Manual) Lymphocytes % (Manual) Seg Neutrophils # Seg Neutrophils # Man Lymphocytes # (Manual) APTT POC ABG pH ABG pH POC ABG pCO2 POC ABG pO2 ABG pO2 ABG HCO3 ABG Base Excess ABG Hemoglobin VBG pH Oxyhemoglobin Sodium Potassium Chloride Carbon Dioxide BUN Creatinine Glucose POC Glucose 173 H 304 H 314 H Lactic Acid Calcium AST ALT Alkaline Phosphatase CK-MB (CK-2) CK-MB (CK-2) Rel Index Total Protein Albumin TSH Urine WBC (Auto) Salicylates 04/08/17 04/08/17 04/08/17 15:57 16:17 22:21 WBC RBC Hgb Hct MCV MCH RDW Plt Count Lymph % (Auto) [place] % (Auto) Eos % (Auto) [place] # Seg Neutrophils % Seg Neuts % (Manual) Lymphocytes % (Manual) Seg Neutrophils # Seg Neutrophils # Man Lymphocytes # (Manual) APTT POC ABG pH ABG pH POC ABG pCO2 POC ABG pO2 ABG pO2 ABG HCO3 ABG Base Excess ABG Hemoglobin VBG pH Oxyhemoglobin Sodium Potassium Chloride Carbon Dioxide BUN Creatinine Glucose POC Glucose 356 H 337 H 323 H Lactic Acid Calcium AST ALT Alkaline Phosphatase CK-MB (CK-2) CK-MB (CK-2) Rel Index Total Protein Albumin TSH Urine WBC (Auto) Salicylates 04/09/17 04/09/17 04/09/17 06:19 15:30 21:52 WBC RBC Hgb Hct MCV MCH RDW Plt Count Lymph % (Auto) [place] % (Auto) Eos % (Auto) [place] # Seg Neutrophils % Seg Neuts % (Manual) Lymphocytes % (Manual) Seg Neutrophils # Seg Neutrophils # Man Lymphocytes # (Manual) APTT POC ABG pH ABG pH POC ABG pCO2 POC ABG pO2 ABG pO2 ABG HCO3 ABG Base Excess ABG Hemoglobin VBG pH Oxyhemoglobin Sodium Potassium Chloride Carbon Dioxide BUN Creatinine Glucose POC Glucose 340 H 332 H 341 H Lactic Acid Calcium AST ALT Alkaline Phosphatase CK-MB (CK-2) CK-MB (CK-2) Rel Index Total Protein Albumin TSH Urine WBC (Auto) Salicylates 04/10/17 04/10/17 04/10/17 01:53 05:33 17:40 WBC RBC Hgb Hct MCV MCH RDW Plt Count Lymph % (Auto) [place] % (Auto) Eos % (Auto) [place] # Seg Neutrophils % Seg Neuts % (Manual) Lymphocytes % (Manual) Seg Neutrophils # Seg Neutrophils # Man Lymphocytes # (Manual) APTT POC ABG pH ABG pH POC ABG pCO2 POC ABG pO2 ABG pO2 ABG HCO3 ABG Base Excess ABG Hemoglobin VBG pH Oxyhemoglobin Sodium Potassium Chloride Carbon Dioxide BUN Creatinine Glucose POC Glucose 261 H 277 H 304 H Lactic Acid Calcium AST ALT Alkaline Phosphatase CK-MB (CK-2) CK-MB (CK-2) Rel Index Total Protein Albumin TSH Urine WBC (Auto) Salicylates 04/10/17 04/11/17 04/11/17 21:29 05:28 14:02 WBC RBC Hgb Hct MCV MCH RDW Plt Count Lymph % (Auto) [place] % (Auto) Eos % (Auto) [place] # Seg Neutrophils % Seg Neuts % (Manual) Lymphocytes % (Manual) Seg Neutrophils # Seg Neutrophils # Man Lymphocytes # (Manual) APTT POC ABG pH ABG pH POC ABG pCO2 POC ABG pO2 ABG pO2 ABG HCO3 ABG Base Excess ABG Hemoglobin VBG pH Oxyhemoglobin Sodium Potassium Chloride Carbon Dioxide BUN Creatinine Glucose POC Glucose 361 H 204 H 236 H Lactic Acid Calcium AST ALT Alkaline Phosphatase CK-MB (CK-2) CK-MB (CK-2) Rel Index Total Protein Albumin TSH Urine WBC (Auto) Salicylates 04/11/17 04/12/17 04/12/17 21:43 05:00 11:53 WBC RBC Hgb Hct MCV MCH RDW Plt Count Lymph % (Auto) [place] % (Auto) Eos % (Auto) [place] # Seg Neutrophils % Seg Neuts % (Manual) Lymphocytes % (Manual) Seg Neutrophils # Seg Neutrophils # Man Lymphocytes # (Manual) APTT POC ABG pH ABG pH POC ABG pCO2 POC ABG pO2 ABG pO2 ABG HCO3 ABG Base Excess ABG Hemoglobin VBG pH Oxyhemoglobin Sodium Potassium Chloride Carbon Dioxide BUN Creatinine Glucose POC Glucose 287 H 294 H 265 H Lactic Acid Calcium AST ALT Alkaline Phosphatase CK-MB (CK-2) CK-MB (CK-2) Rel Index Total Protein Albumin TSH Urine WBC (Auto) Salicylates 04/12/17 04/12/17 04/13/17 21:21 23:44 06:05 WBC RBC Hgb Hct MCV MCH RDW Plt Count Lymph % (Auto) [place] % (Auto) Eos % (Auto) [place] # Seg Neutrophils % Seg Neuts % (Manual) Lymphocytes % (Manual) Seg Neutrophils # Seg Neutrophils # Man Lymphocytes # (Manual) APTT POC ABG pH ABG pH POC ABG pCO2 POC ABG pO2 ABG pO2 ABG HCO3 ABG Base Excess ABG Hemoglobin VBG pH Oxyhemoglobin Sodium Potassium Chloride Carbon Dioxide BUN Creatinine Glucose POC Glucose 289 H 348 H 326 H Lactic Acid Calcium AST ALT Alkaline Phosphatase CK-MB (CK-2) CK-MB (CK-2) Rel Index Total Protein Albumin TSH Urine WBC (Auto) Salicylates 04/13/17 04/13/17 04/14/17 13:54 21:15 05:49 WBC RBC Hgb Hct MCV MCH RDW Plt Count Lymph % (Auto) [place] % (Auto) Eos % (Auto) [place] # Seg Neutrophils % Seg Neuts % (Manual) Lymphocytes % (Manual) Seg Neutrophils # Seg Neutrophils # Man Lymphocytes # (Manual) APTT POC ABG pH ABG pH POC ABG pCO2 POC ABG pO2 ABG pO2 ABG HCO3 ABG Base Excess ABG Hemoglobin VBG pH Oxyhemoglobin Sodium Potassium Chloride Carbon Dioxide BUN Creatinine Glucose POC Glucose 326 H 263 H 319 H Lactic Acid Calcium AST ALT Alkaline Phosphatase CK-MB (CK-2) CK-MB (CK-2) Rel Index Total Protein Albumin TSH Urine WBC (Auto) Salicylates 04/14/17 04/14/17 04/15/17 13:26 23:13 14:24 WBC RBC Hgb Hct MCV MCH RDW Plt Count Lymph % (Auto) [place] % (Auto) Eos % (Auto) [place] # Seg Neutrophils % Seg Neuts % (Manual) Lymphocytes % (Manual) Seg Neutrophils # Seg Neutrophils # Man Lymphocytes # (Manual) APTT POC ABG pH ABG pH POC ABG pCO2 POC ABG pO2 ABG pO2 ABG HCO3 ABG Base Excess ABG Hemoglobin VBG pH Oxyhemoglobin Sodium Potassium Chloride Carbon Dioxide BUN Creatinine Glucose POC Glucose 207 H 365 H 308 H Lactic Acid Calcium AST ALT Alkaline Phosphatase CK-MB (CK-2) CK-MB (CK-2) Rel Index Total Protein Albumin TSH Urine WBC (Auto) Salicylates 04/15/17 04/15/17 04/15/17 21:00 22:18 23:12 WBC RBC Hgb Hct MCV MCH RDW Plt Count Lymph % (Auto) [place] % (Auto) Eos % (Auto) [place] # Seg Neutrophils % Seg Neuts % (Manual) Lymphocytes % (Manual) Seg Neutrophils # Seg Neutrophils # Man Lymphocytes # (Manual) APTT POC ABG pH ABG pH POC ABG pCO2 POC ABG pO2 ABG pO2 ABG HCO3 ABG Base Excess ABG Hemoglobin VBG pH Oxyhemoglobin Sodium Potassium Chloride Carbon Dioxide BUN Creatinine Glucose POC Glucose 407 H 287 H 325 H Lactic Acid Calcium AST ALT Alkaline Phosphatase CK-MB (CK-2) CK-MB (CK-2) Rel Index Total Protein Albumin TSH Urine WBC (Auto) Salicylates 04/16/17 04/16/17 04/16/17 05:30 10:07 14:26 WBC RBC Hgb Hct MCV MCH RDW Plt Count Lymph % (Auto) [place] % (Auto) Eos % (Auto) [place] # Seg Neutrophils % Seg Neuts % (Manual) Lymphocytes % (Manual) Seg Neutrophils # Seg Neutrophils # Man Lymphocytes # (Manual) APTT POC ABG pH ABG pH POC ABG pCO2 POC ABG pO2 ABG pO2 ABG HCO3 ABG Base Excess ABG Hemoglobin VBG pH Oxyhemoglobin Sodium Potassium Chloride Carbon Dioxide BUN Creatinine Glucose POC Glucose 304 H 217 H 344 H Lactic Acid Calcium AST ALT Alkaline Phosphatase CK-MB (CK-2) CK-MB (CK-2) Rel Index Total Protein Albumin TSH Urine WBC (Auto) Salicylates 04/16/17 04/17/17 04/17/17 21:25 05:12 14:19 WBC RBC Hgb Hct MCV MCH RDW Plt Count Lymph % (Auto) [place] % (Auto) Eos % (Auto) [place] # Seg Neutrophils % Seg Neuts % (Manual) Lymphocytes % (Manual) Seg Neutrophils # Seg Neutrophils # Man Lymphocytes # (Manual) APTT POC ABG pH ABG pH POC ABG pCO2 POC ABG pO2 ABG pO2 ABG HCO3 ABG Base Excess ABG Hemoglobin VBG pH Oxyhemoglobin Sodium Potassium Chloride Carbon Dioxide BUN Creatinine Glucose POC Glucose 305 H 233 H 324 H Lactic Acid Calcium AST ALT Alkaline Phosphatase CK-MB (CK-2) CK-MB (CK-2) Rel Index Total Protein Albumin TSH Urine WBC (Auto) Salicylates 04/17/17 04/18/17 04/18/17 21:42 06:21 14:08 WBC RBC Hgb Hct MCV MCH RDW Plt Count Lymph % (Auto) [place] % (Auto) Eos % (Auto) [place] # Seg Neutrophils % Seg Neuts % (Manual) Lymphocytes % (Manual) Seg Neutrophils # Seg Neutrophils # Man Lymphocytes # (Manual) APTT POC ABG pH ABG pH POC ABG pCO2 POC ABG pO2 ABG pO2 ABG HCO3 ABG Base Excess ABG Hemoglobin VBG pH Oxyhemoglobin Sodium Potassium Chloride Carbon Dioxide BUN Creatinine Glucose POC Glucose 270 H 308 H 290 H Lactic Acid Calcium AST ALT Alkaline Phosphatase CK-MB (CK-2) CK-MB (CK-2) Rel Index Total Protein Albumin TSH Urine WBC (Auto) Salicylates 04/18/17 04/19/17 04/19/17 21:50 05:20 13:59 WBC RBC Hgb Hct MCV MCH RDW Plt Count Lymph % (Auto) [place] % (Auto) Eos % (Auto) [place] # Seg Neutrophils % Seg Neuts % (Manual) Lymphocytes % (Manual) Seg Neutrophils # Seg Neutrophils # Man Lymphocytes # (Manual) APTT POC ABG pH ABG pH POC ABG pCO2 POC ABG pO2 ABG pO2 ABG HCO3 ABG Base Excess ABG Hemoglobin VBG pH Oxyhemoglobin Sodium Potassium Chloride Carbon Dioxide BUN Creatinine Glucose POC Glucose 167 H 372 H 321 H Lactic Acid Calcium AST ALT Alkaline Phosphatase CK-MB (CK-2) CK-MB (CK-2) Rel Index Total Protein Albumin TSH Urine WBC (Auto) Salicylates 04/19/17 04/20/17 04/20/17 21:16 14:18 21:34 WBC RBC Hgb Hct MCV MCH RDW Plt Count Lymph % (Auto) [place] % (Auto) Eos % (Auto) [place] # Seg Neutrophils % Seg Neuts % (Manual) Lymphocytes % (Manual) Seg Neutrophils # Seg Neutrophils # Man Lymphocytes # (Manual) APTT POC ABG pH ABG pH POC ABG pCO2 POC ABG pO2 ABG pO2 ABG HCO3 ABG Base Excess ABG Hemoglobin VBG pH Oxyhemoglobin Sodium Potassium Chloride Carbon Dioxide BUN Creatinine Glucose POC Glucose 182 H 218 H 121 H Lactic Acid Calcium AST ALT Alkaline Phosphatase CK-MB (CK-2) CK-MB (CK-2) Rel Index Total Protein Albumin TSH Urine WBC (Auto) Salicylates 04/21/17 04/21/17 04/21/17 00:08 05:16 12:41 WBC RBC Hgb Hct MCV MCH RDW Plt Count Lymph % (Auto) [place] % (Auto) Eos % (Auto) [place] # Seg Neutrophils % Seg Neuts % (Manual) Lymphocytes % (Manual) Seg Neutrophils # Seg Neutrophils # Man Lymphocytes # (Manual) APTT POC ABG pH ABG pH POC ABG pCO2 POC ABG pO2 ABG pO2 ABG HCO3 ABG Base Excess ABG Hemoglobin VBG pH Oxyhemoglobin Sodium Potassium Chloride Carbon Dioxide BUN Creatinine Glucose POC Glucose 128 H 120 H 216 H Lactic Acid Calcium AST ALT Alkaline Phosphatase CK-MB (CK-2) CK-MB (CK-2) Rel Index Total Protein Albumin TSH Urine WBC (Auto) Salicylates 04/21/17 04/22/17 04/22/17 23:40 14:12 23:38 WBC RBC Hgb Hct MCV MCH RDW Plt Count Lymph % (Auto) [place] % (Auto) Eos % (Auto) [place] # Seg Neutrophils % Seg Neuts % (Manual) Lymphocytes % (Manual) Seg Neutrophils # Seg Neutrophils # Man Lymphocytes # (Manual) APTT POC ABG pH ABG pH POC ABG pCO2 POC ABG pO2 ABG pO2 ABG HCO3 ABG Base Excess ABG Hemoglobin VBG pH Oxyhemoglobin Sodium Potassium Chloride Carbon Dioxide BUN Creatinine Glucose POC Glucose 157 H 242 H 117 H Lactic Acid Calcium AST ALT Alkaline Phosphatase CK-MB (CK-2) CK-MB (CK-2) Rel Index Total Protein Albumin TSH Urine WBC (Auto) Salicylates 04/23/17 04/23/17 04/24/17 05:18 14:01 03:24 WBC RBC Hgb Hct MCV MCH RDW Plt Count Lymph % (Auto) [place] % (Auto) Eos % (Auto) [place] # Seg Neutrophils % Seg Neuts % (Manual) Lymphocytes % (Manual) Seg Neutrophils # Seg Neutrophils # Man Lymphocytes # (Manual) APTT POC ABG pH ABG pH POC ABG pCO2 POC ABG pO2 ABG pO2 ABG HCO3 ABG Base Excess ABG Hemoglobin VBG pH Oxyhemoglobin Sodium Potassium Chloride Carbon Dioxide BUN Creatinine Glucose POC Glucose 163 H 57 L 177 H Lactic Acid Calcium AST ALT Alkaline Phosphatase CK-MB (CK-2) CK-MB (CK-2) Rel Index Total Protein Albumin TSH Urine WBC (Auto) Salicylates 04/24/17 04/24/17 04/24/17 04:00 04:00 06:33 WBC RBC Hgb 9.9 L Hct 30.0 L MCV 79 L MCH 26 L RDW 17.1 H Plt Count 625 H Lymph % (Auto) [place] % (Auto) 8.4 H Eos % (Auto) [place] # Seg Neutrophils % Seg Neuts % (Manual) Lymphocytes % (Manual) Seg Neutrophils # Seg Neutrophils # Man Lymphocytes # (Manual) APTT POC ABG pH ABG pH POC ABG pCO2 POC ABG pO2 ABG pO2 ABG HCO3 ABG Base Excess ABG Hemoglobin VBG pH Oxyhemoglobin Sodium 136 L Potassium Chloride 94.9 L Carbon Dioxide BUN 40 H Creatinine 0.6 L Glucose 176 H POC Glucose 230 H Lactic Acid Calcium AST 67 H ALT Alkaline Phosphatase 294 H CK-MB (CK-2) CK-MB (CK-2) Rel Index Total Protein 9.0 H Albumin 2.5 L TSH Urine WBC (Auto) Salicylates 04/24/17 04/25/17 04/25/17 13:50 00:22 02:55 WBC RBC 3.54 L Hgb 9.0 L Hct 27.9 L MCV 79 L MCH 26 L RDW 17.5 H Plt Count 574 H Lymph % (Auto) [place] % (Auto) 10.4 H Eos % (Auto) [place] # 1.0 H Seg Neutrophils % Seg Neuts % (Manual) Lymphocytes % (Manual) Seg Neutrophils # Seg Neutrophils # Man Lymphocytes # (Manual) APTT POC ABG pH ABG pH POC ABG pCO2 POC ABG pO2 ABG pO2 ABG HCO3 ABG Base Excess ABG Hemoglobin VBG pH Oxyhemoglobin Sodium Potassium Chloride Carbon Dioxide BUN Creatinine Glucose POC Glucose 116 H < 40 L Lactic Acid Calcium AST ALT Alkaline Phosphatase CK-MB (CK-2) CK-MB (CK-2) Rel Index Total Protein Albumin TSH Urine WBC (Auto) Salicylates 04/25/17 04/25/17 04/25/17 02:55 11:15 18:36 WBC RBC Hgb Hct MCV MCH RDW Plt Count Lymph % (Auto) [place] % (Auto) Eos % (Auto) [place] # Seg Neutrophils % Seg Neuts % (Manual) Lymphocytes % (Manual) Seg Neutrophils # Seg Neutrophils # Man Lymphocytes # (Manual) APTT POC ABG pH ABG pH POC ABG pCO2 POC ABG pO2 ABG pO2 ABG HCO3 ABG Base Excess ABG Hemoglobin VBG pH Oxyhemoglobin Sodium Potassium Chloride 96.2 L Carbon Dioxide BUN 39 H Creatinine 0.7 L Glucose 125 H POC Glucose 227 H 280 H Lactic Acid Calcium AST ALT Alkaline Phosphatase 247 H CK-MB (CK-2) CK-MB (CK-2) Rel Index Total Protein Albumin 2.7 L TSH Urine WBC (Auto) Salicylates 04/25/17 04/26/17 04/26/17 21:49 06:53 07:27 WBC RBC 3.61 L Hgb 9.1 L Hct 28.1 L MCV 78 L MCH 25 L RDW 17.4 H Plt Count 594 H Lymph % (Auto) [place] % (Auto) 9.2 H Eos % (Auto) [place]ard # 1.0 H Seg Neutrophils % 70.6 H Seg Neuts % (Manual) Lymphocytes % (Manual) Seg Neutrophils # Seg Neutrophils # Man Lymphocytes # (Manual) APTT POC ABG pH ABG pH POC ABG pCO2 POC ABG pO2 ABG pO2 ABG HCO3 ABG Base Excess ABG Hemoglobin VBG pH Oxyhemoglobin Sodium Potassium Chloride Carbon Dioxide BUN Creatinine Glucose POC Glucose 192 H 60 L Lactic Acid Calcium AST ALT Alkaline Phosphatase CK-MB (CK-2) CK-MB (CK-2) Rel Index Total Protein Albumin TSH Urine WBC (Auto) Salicylates 04/26/17 04/26/17 04/26/17 07:27 07:28 13:32 WBC RBC Hgb Hct MCV MCH RDW Plt Count Lymph % (Auto) [place] % (Auto) Eos % (Auto) [place] # Seg Neutrophils % Seg Neuts % (Manual) Lymphocytes % (Manual) Seg Neutrophils # Seg Neutrophils # Man Lymphocytes # (Manual) APTT POC ABG pH ABG pH POC ABG pCO2 POC ABG pO2 ABG pO2 ABG HCO3 ABG Base Excess ABG Hemoglobin VBG pH Oxyhemoglobin Sodium Potassium Chloride 95.0 L Carbon Dioxide BUN 42 H Creatinine 0.7 L Glucose 172 H POC Glucose 190 H 168 H Lactic Acid Calcium AST 56 H ALT Alkaline Phosphatase 274 H CK-MB (CK-2) CK-MB (CK-2) Rel Index Total Protein 8.9 H Albumin 2.7 L TSH Urine WBC (Auto) Salicylates 04/26/17 04/27/17 04/27/17 23:36 05:10 05:10 WBC RBC 3.49 L Hgb 8.7 L Hct 27.0 L MCV 77 L MCH 25 L RDW 17.4 H Plt Count 558 H Lymph % (Auto) [place] % (Auto) 9.6 H Eos % (Auto) [place] # Seg Neutrophils % Seg Neuts % (Manual) Lymphocytes % (Manual) Seg Neutrophils # Seg Neutrophils # Man Lymphocytes # (Manual) APTT POC ABG pH ABG pH POC ABG pCO2 POC ABG pO2 ABG pO2 ABG HCO3 ABG Base Excess ABG Hemoglobin VBG pH Oxyhemoglobin Sodium 133 L Potassium Chloride 93.5 L Carbon Dioxide BUN 40 H Creatinine 0.7 L Glucose 179 H POC Glucose 204 H Lactic Acid Calcium AST 73 H ALT 58 H Alkaline Phosphatase 294 H CK-MB (CK-2) CK-MB (CK-2) Rel Index Total Protein 8.7 H Albumin 2.4 L TSH Urine WBC (Auto) Salicylates 04/27/17 04/27/17 04/27/17 05:45 14:08 23:46 WBC RBC Hgb Hct MCV MCH RDW Plt Count Lymph % (Auto) [place] % (Auto) Eos % (Auto) [place] # Seg Neutrophils % Seg Neuts % (Manual) Lymphocytes % (Manual) Seg Neutrophils # Seg Neutrophils # Man Lymphocytes # (Manual) APTT POC ABG pH ABG pH POC ABG pCO2 POC ABG pO2 ABG pO2 ABG HCO3 ABG Base Excess ABG Hemoglobin VBG pH Oxyhemoglobin Sodium Potassium Chloride Carbon Dioxide BUN Creatinine Glucose POC Glucose 200 H 206 H 207 H Lactic Acid Calcium AST ALT Alkaline Phosphatase CK-MB (CK-2) CK-MB (CK-2) Rel Index Total Protein Albumin TSH Urine WBC (Auto) Salicylates 04/28/17 04/28/17 04/28/17 04:48 04:53 05:10 WBC RBC 3.48 L Hgb 8.8 L Hct 26.7 L MCV 77 L MCH 25 L RDW 17.0 H Plt Count 515 H Lymph % (Auto) [place] % (Auto) 8.4 H Eos % (Auto) [place] # Seg Neutrophils % 70.6 H Seg Neuts % (Manual) Lymphocytes % (Manual) Seg Neutrophils # Seg Neutrophils # Man Lymphocytes # (Manual) APTT POC ABG pH ABG pH POC ABG pCO2 POC ABG pO2 ABG pO2 ABG HCO3 ABG Base Excess ABG Hemoglobin VBG pH Oxyhemoglobin Sodium Potassium Chloride Carbon Dioxide BUN Creatinine Glucose POC Glucose 43 L 41 L Lactic Acid Calcium AST ALT Alkaline Phosphatase CK-MB (CK-2) CK-MB (CK-2) Rel Index Total Protein Albumin TSH Urine WBC (Auto) Salicylates 04/28/17 04/28/17 04/28/17 05:10 14:06 22:07 WBC RBC Hgb Hct MCV MCH RDW Plt Count Lymph % (Auto) [place] % (Auto) Eos % (Auto) [place] # Seg Neutrophils % Seg Neuts % (Manual) Lymphocytes % (Manual) Seg Neutrophils # Seg Neutrophils # Man Lymphocytes # (Manual) APTT POC ABG pH ABG pH POC ABG pCO2 POC ABG pO2 ABG pO2 ABG HCO3 ABG Base Excess ABG Hemoglobin VBG pH Oxyhemoglobin Sodium 136 L Potassium Chloride 95.2 L Carbon Dioxide BUN 42 H Creatinine Glucose 63 L POC Glucose 303 H 227 H Lactic Acid Calcium AST 45 H ALT Alkaline Phosphatase 271 H CK-MB (CK-2) CK-MB (CK-2) Rel Index Total Protein 8.9 H Albumin 2.5 L TSH Urine WBC (Auto) Salicylates 04/29/17 04/29/17 04/29/17 06:40 14:11 21:35 WBC RBC Hgb Hct MCV MCH RDW Plt Count Lymph % (Auto) [place] % (Auto) Eos % (Auto) [place] # Seg Neutrophils % Seg Neuts % (Manual) Lymphocytes % (Manual) Seg Neutrophils # Seg Neutrophils # Man Lymphocytes # (Manual) APTT POC ABG pH ABG pH POC ABG pCO2 POC ABG pO2 ABG pO2 ABG HCO3 ABG Base Excess ABG Hemoglobin VBG pH Oxyhemoglobin Sodium Potassium Chloride Carbon Dioxide BUN Creatinine Glucose POC Glucose 254 H 244 H 184 H Lactic Acid Calcium AST ALT Alkaline Phosphatase CK-MB (CK-2) CK-MB (CK-2) Rel Index Total Protein Albumin TSH Urine WBC (Auto) Salicylates 04/30/17 04/30/17 04/30/17 05:17 14:03 22:08 WBC RBC Hgb Hct MCV MCH RDW Plt Count Lymph % (Auto) [place] % (Auto) Eos % (Auto) [place] # Seg Neutrophils % Seg Neuts % (Manual) Lymphocytes % (Manual) Seg Neutrophils # Seg Neutrophils # Man Lymphocytes # (Manual) APTT POC ABG pH ABG pH POC ABG pCO2 POC ABG pO2 ABG pO2 ABG HCO3 ABG Base Excess ABG Hemoglobin VBG pH Oxyhemoglobin Sodium Potassium Chloride Carbon Dioxide BUN Creatinine Glucose POC Glucose 173 H 182 H 247 H Lactic Acid Calcium AST ALT Alkaline Phosphatase CK-MB (CK-2) CK-MB (CK-2) Rel Index Total Protein Albumin TSH Urine WBC (Auto) Salicylates 05/01/17 05/01/17 05/01/17 05:04 15:37 18:50 WBC RBC Hgb Hct MCV MCH RDW Plt Count Lymph % (Auto) [place] % (Auto) Eos % (Auto) [place] # Seg Neutrophils % Seg Neuts % (Manual) Lymphocytes % (Manual) Seg Neutrophils # Seg Neutrophils # Man Lymphocytes # (Manual) APTT POC ABG pH ABG pH POC ABG pCO2 POC ABG pO2 ABG pO2 ABG HCO3 ABG Base Excess ABG Hemoglobin VBG pH Oxyhemoglobin Sodium Potassium Chloride Carbon Dioxide BUN Creatinine Glucose POC Glucose 335 H 68 L 144 H Lactic Acid Calcium AST ALT Alkaline Phosphatase CK-MB (CK-2) CK-MB (CK-2) Rel Index Total Protein Albumin TSH Urine WBC (Auto) Salicylates 05/01/17 05/02/17 05/02/17 22:13 04:59 14:06 WBC RBC Hgb Hct MCV MCH RDW Plt Count Lymph % (Auto) [place] % (Auto) Eos % (Auto) [place] # Seg Neutrophils % Seg Neuts % (Manual) Lymphocytes % (Manual) Seg Neutrophils # Seg Neutrophils # Man Lymphocytes # (Manual) APTT POC ABG pH ABG pH POC ABG pCO2 POC ABG pO2 ABG pO2 ABG HCO3 ABG Base Excess ABG Hemoglobin VBG pH Oxyhemoglobin Sodium Potassium Chloride Carbon Dioxide BUN Creatinine Glucose POC Glucose 192 H 225 H 165 H Lactic Acid Calcium AST ALT Alkaline Phosphatase CK-MB (CK-2) CK-MB (CK-2) Rel Index Total Protein Albumin TSH Urine WBC (Auto) Salicylates 05/02/17 05/03/17 05/03/17 21:20 05:16 16:56 WBC RBC Hgb Hct MCV MCH RDW Plt Count Lymph % (Auto) [place] % (Auto) Eos % (Auto) [place] # Seg Neutrophils % Seg Neuts % (Manual) Lymphocytes % (Manual) Seg Neutrophils # Seg Neutrophils # Man Lymphocytes # (Manual) APTT POC ABG pH ABG pH POC ABG pCO2 POC ABG pO2 ABG pO2 ABG HCO3 ABG Base Excess ABG Hemoglobin VBG pH Oxyhemoglobin Sodium Potassium Chloride Carbon Dioxide BUN Creatinine Glucose POC Glucose 181 H 323 H 125 H Lactic Acid Calcium AST ALT Alkaline Phosphatase CK-MB (CK-2) CK-MB (CK-2) Rel Index Total Protein Albumin TSH Urine WBC (Auto) Salicylates 05/03/17 05/04/17 05/04/17 21:46 05:01 14:24 WBC RBC Hgb Hct MCV MCH RDW Plt Count Lymph % (Auto) [place] % (Auto) Eos % (Auto) [place] # Seg Neutrophils % Seg Neuts % (Manual) Lymphocytes % (Manual) Seg Neutrophils # Seg Neutrophils # Man Lymphocytes # (Manual) APTT POC ABG pH ABG pH POC ABG pCO2 POC ABG pO2 ABG pO2 ABG HCO3 ABG Base Excess ABG Hemoglobin VBG pH Oxyhemoglobin Sodium Potassium Chloride Carbon Dioxide BUN Creatinine Glucose POC Glucose 210 H 360 H 219 H Lactic Acid Calcium AST ALT Alkaline Phosphatase CK-MB (CK-2) CK-MB (CK-2) Rel Index Total Protein Albumin TSH Urine WBC (Auto) Salicylates 05/04/17 05/05/17 05/05/17 21:39 01:58 05:13 WBC RBC Hgb Hct MCV MCH RDW Plt Count Lymph % (Auto) [place] % (Auto) Eos % (Auto) [place] # Seg Neutrophils % Seg Neuts % (Manual) Lymphocytes % (Manual) Seg Neutrophils # Seg Neutrophils # Man Lymphocytes # (Manual) APTT POC ABG pH ABG pH POC ABG pCO2 POC ABG pO2 ABG pO2 ABG HCO3 ABG Base Excess ABG Hemoglobin VBG pH Oxyhemoglobin Sodium Potassium Chloride Carbon Dioxide BUN Creatinine Glucose POC Glucose 126 H 175 H 267 H Lactic Acid Calcium AST ALT Alkaline Phosphatase CK-MB (CK-2) CK-MB (CK-2) Rel Index Total Protein Albumin TSH Urine WBC (Auto) Salicylates 05/05/17 05/05/17 05/05/17 12:19 14:11 21:18 WBC RBC Hgb Hct MCV MCH RDW Plt Count Lymph % (Auto) [place] % (Auto) Eos % (Auto) [place] # Seg Neutrophils % Seg Neuts % (Manual) Lymphocytes % (Manual) Seg Neutrophils # Seg Neutrophils # Man Lymphocytes # (Manual) APTT POC ABG pH ABG pH POC ABG pCO2 POC ABG pO2 ABG pO2 ABG HCO3 ABG Base Excess ABG Hemoglobin VBG pH Oxyhemoglobin Sodium Potassium Chloride Carbon Dioxide BUN Creatinine Glucose POC Glucose 221 H 205 H 156 H Lactic Acid Calcium AST ALT Alkaline Phosphatase CK-MB (CK-2) CK-MB (CK-2) Rel Index Total Protein Albumin TSH Urine WBC (Auto) Salicylates 05/06/17 05/06/17 05/06/17 06:02 15:26 21:43 WBC RBC Hgb Hct MCV MCH RDW Plt Count Lymph % (Auto) [place] % (Auto) Eos % (Auto) [place] # Seg Neutrophils % Seg Neuts % (Manual) Lymphocytes % (Manual) Seg Neutrophils # Seg Neutrophils # Man Lymphocytes # (Manual) APTT POC ABG pH ABG pH POC ABG pCO2 POC ABG pO2 ABG pO2 ABG HCO3 ABG Base Excess ABG Hemoglobin VBG pH Oxyhemoglobin Sodium Potassium Chloride Carbon Dioxide BUN Creatinine Glucose POC Glucose 263 H 143 H 145 H Lactic Acid Calcium AST ALT Alkaline Phosphatase CK-MB (CK-2) CK-MB (CK-2) Rel Index Total Protein Albumin TSH Urine WBC (Auto) Salicylates 05/07/17 05/07/17 05/07/17 05:52 21:46 21:49 WBC RBC Hgb Hct MCV MCH RDW Plt Count Lymph % (Auto) [place] % (Auto) Eos % (Auto) [place] # Seg Neutrophils % Seg Neuts % (Manual) Lymphocytes % (Manual) Seg Neutrophils # Seg Neutrophils # Man Lymphocytes # (Manual) APTT POC ABG pH ABG pH POC ABG pCO2 POC ABG pO2 ABG pO2 ABG HCO3 ABG Base Excess ABG Hemoglobin VBG pH Oxyhemoglobin Sodium Potassium Chloride Carbon Dioxide BUN Creatinine Glucose POC Glucose 242 H < 40 L < 40 L Lactic Acid Calcium AST ALT Alkaline Phosphatase CK-MB (CK-2) CK-MB (CK-2) Rel Index Total Protein Albumin TSH Urine WBC (Auto) Salicylates 05/07/17 05/08/17 05/09/17 22:41 06:14 00:02 WBC RBC Hgb Hct MCV MCH RDW Plt Count Lymph % (Auto) [place] % (Auto) Eos % (Auto) [place] # Seg Neutrophils % Seg Neuts % (Manual) Lymphocytes % (Manual) Seg Neutrophils # Seg Neutrophils # Man Lymphocytes # (Manual) APTT POC ABG pH ABG pH POC ABG pCO2 POC ABG pO2 ABG pO2 ABG HCO3 ABG Base Excess ABG Hemoglobin VBG pH Oxyhemoglobin Sodium Potassium Chloride Carbon Dioxide BUN Creatinine Glucose POC Glucose 183 H 329 H 130 H Lactic Acid Calcium AST ALT Alkaline Phosphatase CK-MB (CK-2) CK-MB (CK-2) Rel Index Total Protein Albumin TSH Urine WBC (Auto) Salicylates 05/09/17 05/09/17 05/09/17 06:08 14:06 21:44 WBC RBC Hgb Hct MCV MCH RDW Plt Count Lymph % (Auto) [place] % (Auto) Eos % (Auto) [place] # Seg Neutrophils % Seg Neuts % (Manual) Lymphocytes % (Manual) Seg Neutrophils # Seg Neutrophils # Man Lymphocytes # (Manual) APTT POC ABG pH ABG pH POC ABG pCO2 POC ABG pO2 ABG pO2 ABG HCO3 ABG Base Excess ABG Hemoglobin VBG pH Oxyhemoglobin Sodium Potassium Chloride Carbon Dioxide BUN Creatinine Glucose POC Glucose 241 H 251 H 198 H Lactic Acid Calcium AST ALT Alkaline Phosphatase CK-MB (CK-2) CK-MB (CK-2) Rel Index Total Protein Albumin TSH Urine WBC (Auto) Salicylates 05/10/17 05/10/17 05/10/17 05:18 14:44 21:53 WBC RBC Hgb Hct MCV MCH RDW Plt Count Lymph % (Auto) [place] % (Auto) Eos % (Auto) [place] # Seg Neutrophils % Seg Neuts % (Manual) Lymphocytes % (Manual) Seg Neutrophils # Seg Neutrophils # Man Lymphocytes # (Manual) APTT POC ABG pH ABG pH POC ABG pCO2 POC ABG pO2 ABG pO2 ABG HCO3 ABG Base Excess ABG Hemoglobin VBG pH Oxyhemoglobin Sodium Potassium Chloride Carbon Dioxide BUN Creatinine Glucose POC Glucose 166 H 224 H 171 H Lactic Acid Calcium AST ALT Alkaline Phosphatase CK-MB (CK-2) CK-MB (CK-2) Rel Index Total Protein Albumin TSH Urine WBC (Auto) Salicylates 05/11/17 05/11/17 05/11/17 05:45 13:44 21:42 WBC RBC Hgb Hct MCV MCH RDW Plt Count Lymph % (Auto) [place] % (Auto) Eos % (Auto) [place] # Seg Neutrophils % Seg Neuts % (Manual) Lymphocytes % (Manual) Seg Neutrophils # Seg Neutrophils # Man Lymphocytes # (Manual) APTT POC ABG pH ABG pH POC ABG pCO2 POC ABG pO2 ABG pO2 ABG HCO3 ABG Base Excess ABG Hemoglobin VBG pH Oxyhemoglobin Sodium Potassium Chloride Carbon Dioxide BUN Creatinine Glucose POC Glucose 199 H 150 H 163 H Lactic Acid Calcium AST ALT Alkaline Phosphatase CK-MB (CK-2) CK-MB (CK-2) Rel Index Total Protein Albumin TSH Urine WBC (Auto) Salicylates 05/12/17 05/12/17 05/12/17 06:03 13:59 21:22 WBC RBC Hgb Hct MCV MCH RDW Plt Count Lymph % (Auto) [place] % (Auto) Eos % (Auto) [place] # Seg Neutrophils % Seg Neuts % (Manual) Lymphocytes % (Manual) Seg Neutrophils # Seg Neutrophils # Man Lymphocytes # (Manual) APTT POC ABG pH ABG pH POC ABG pCO2 POC ABG pO2 ABG pO2 ABG HCO3 ABG Base Excess ABG Hemoglobin VBG pH Oxyhemoglobin Sodium Potassium Chloride Carbon Dioxide BUN Creatinine Glucose POC Glucose 147 H 243 H 116 H Lactic Acid Calcium AST ALT Alkaline Phosphatase CK-MB (CK-2) CK-MB (CK-2) Rel Index Total Protein Albumin TSH Urine WBC (Auto) Salicylates 05/13/17 05/13/17 05/13/17 05:28 13:49 21:29 WBC RBC Hgb Hct MCV MCH RDW Plt Count Lymph % (Auto) [place] % (Auto) Eos % (Auto) [place] # Seg Neutrophils % Seg Neuts % (Manual) Lymphocytes % (Manual) Seg Neutrophils # Seg Neutrophils # Man Lymphocytes # (Manual) APTT POC ABG pH ABG pH POC ABG pCO2 POC ABG pO2 ABG pO2 ABG HCO3 ABG Base Excess ABG Hemoglobin VBG pH Oxyhemoglobin Sodium Potassium Chloride Carbon Dioxide BUN Creatinine Glucose POC Glucose 213 H 224 H 379 H Lactic Acid Calcium AST ALT Alkaline Phosphatase CK-MB (CK-2) CK-MB (CK-2) Rel Index Total Protein Albumin TSH Urine WBC (Auto) Salicylates 05/14/17 05/14/17 05/14/17 05:17 13:35 21:23 WBC RBC Hgb Hct MCV MCH RDW Plt Count Lymph % (Auto) [place] % (Auto) Eos % (Auto) [place] # Seg Neutrophils % Seg Neuts % (Manual) Lymphocytes % (Manual) Seg Neutrophils # Seg Neutrophils # Man Lymphocytes # (Manual) APTT POC ABG pH ABG pH POC ABG pCO2 POC ABG pO2 ABG pO2 ABG HCO3 ABG Base Excess ABG Hemoglobin VBG pH Oxyhemoglobin Sodium Potassium Chloride Carbon Dioxide BUN Creatinine Glucose POC Glucose 234 H 242 H 218 H Lactic Acid Calcium AST ALT Alkaline Phosphatase CK-MB (CK-2) CK-MB (CK-2) Rel Index Total Protein Albumin TSH Urine WBC (Auto) Salicylates 05/15/17 05/15/17 05/16/17 04:58 13:53 01:34 WBC RBC Hgb Hct MCV MCH RDW Plt Count Lymph % (Auto) [place] % (Auto) Eos % (Auto) [place] # Seg Neutrophils % Seg Neuts % (Manual) Lymphocytes % (Manual) Seg Neutrophils # Seg Neutrophils # Man Lymphocytes # (Manual) APTT POC ABG pH ABG pH POC ABG pCO2 POC ABG pO2 ABG pO2 ABG HCO3 ABG Base Excess ABG Hemoglobin VBG pH Oxyhemoglobin Sodium Potassium Chloride Carbon Dioxide BUN Creatinine Glucose POC Glucose 310 H 193 H 263 H Lactic Acid Calcium AST ALT Alkaline Phosphatase CK-MB (CK-2) CK-MB (CK-2) Rel Index Total Protein Albumin TSH Urine WBC (Auto) Salicylates 05/16/17 05/16/17 05/16/17 06:03 14:36 21:59 WBC RBC Hgb Hct MCV MCH RDW Plt Count Lymph % (Auto) [place] % (Auto) Eos % (Auto) [place] # Seg Neutrophils % Seg Neuts % (Manual) Lymphocytes % (Manual) Seg Neutrophils # Seg Neutrophils # Man Lymphocytes # (Manual) APTT POC ABG pH ABG pH POC ABG pCO2 POC ABG pO2 ABG pO2 ABG HCO3 ABG Base Excess ABG Hemoglobin VBG pH Oxyhemoglobin Sodium Potassium Chloride Carbon Dioxide BUN Creatinine Glucose POC Glucose 330 H 272 H 198 H Lactic Acid Calcium AST ALT Alkaline Phosphatase CK-MB (CK-2) CK-MB (CK-2) Rel Index Total Protein Albumin TSH Urine WBC (Auto) Salicylates 05/17/17 05/17/17 05/18/17 05:48 13:59 05:27 WBC RBC Hgb Hct MCV MCH RDW Plt Count Lymph % (Auto) [place] % (Auto) Eos % (Auto) [place] # Seg Neutrophils % Seg Neuts % (Manual) Lymphocytes % (Manual) Seg Neutrophils # Seg Neutrophils # Man Lymphocytes # (Manual) APTT POC ABG pH ABG pH POC ABG pCO2 POC ABG pO2 ABG pO2 ABG HCO3 ABG Base Excess ABG Hemoglobin VBG pH Oxyhemoglobin Sodium Potassium Chloride Carbon Dioxide BUN Creatinine Glucose POC Glucose 204 H 229 H 152 H Lactic Acid Calcium AST ALT Alkaline Phosphatase CK-MB (CK-2) CK-MB (CK-2) Rel Index Total Protein Albumin TSH Urine WBC (Auto) Salicylates 05/18/17 05/18/17 05/19/17 14:16 21:27 04:59 WBC RBC Hgb Hct MCV MCH RDW Plt Count Lymph % (Auto) [place] % (Auto) Eos % (Auto) [place] # Seg Neutrophils % Seg Neuts % (Manual) Lymphocytes % (Manual) Seg Neutrophils # Seg Neutrophils # Man Lymphocytes # (Manual) APTT POC ABG pH ABG pH POC ABG pCO2 POC ABG pO2 ABG pO2 ABG HCO3 ABG Base Excess ABG Hemoglobin VBG pH Oxyhemoglobin Sodium Potassium Chloride Carbon Dioxide BUN Creatinine Glucose POC Glucose 217 H 202 H 131 H Lactic Acid Calcium AST ALT Alkaline Phosphatase CK-MB (CK-2) CK-MB (CK-2) Rel Index Total Protein Albumin TSH Urine WBC (Auto) Salicylates 05/19/17 05/20/17 05/20/17 14:57 00:11 05:45 WBC RBC Hgb Hct MCV MCH RDW Plt Count Lymph % (Auto) [place] % (Auto) Eos % (Auto) [place] # Seg Neutrophils % Seg Neuts % (Manual) Lymphocytes % (Manual) Seg Neutrophils # Seg Neutrophils # Man Lymphocytes # (Manual) APTT POC ABG pH ABG pH POC ABG pCO2 POC ABG pO2 ABG pO2 ABG HCO3 ABG Base Excess ABG Hemoglobin VBG pH Oxyhemoglobin Sodium Potassium Chloride Carbon Dioxide BUN Creatinine Glucose POC Glucose 216 H 197 H 195 H Lactic Acid Calcium AST ALT Alkaline Phosphatase CK-MB (CK-2) CK-MB (CK-2) Rel Index Total Protein Albumin TSH Urine WBC (Auto) Salicylates 05/20/17 05/20/17 05/21/17 13:29 22:11 05:43 WBC RBC Hgb Hct MCV MCH RDW Plt Count Lymph % (Auto) [place] % (Auto) Eos % (Auto) [place] # Seg Neutrophils % Seg Neuts % (Manual) Lymphocytes % (Manual) Seg Neutrophils # Seg Neutrophils # Man Lymphocytes # (Manual) APTT POC ABG pH ABG pH POC ABG pCO2 POC ABG pO2 ABG pO2 ABG HCO3 ABG Base Excess ABG Hemoglobin VBG pH Oxyhemoglobin Sodium Potassium Chloride Carbon Dioxide BUN Creatinine Glucose POC Glucose 138 H 242 H 228 H Lactic Acid Calcium AST ALT Alkaline Phosphatase CK-MB (CK-2) CK-MB (CK-2) Rel Index Total Protein Albumin TSH Urine WBC (Auto) Salicylates 05/21/17 05/21/17 05/22/17 14:06 21:49 05:31 WBC RBC Hgb Hct MCV MCH RDW Plt Count Lymph % (Auto) [place] % (Auto) Eos % (Auto) [place] # Seg Neutrophils % Seg Neuts % (Manual) Lymphocytes % (Manual) Seg Neutrophils # Seg Neutrophils # Man Lymphocytes # (Manual) APTT POC ABG pH ABG pH POC ABG pCO2 POC ABG pO2 ABG pO2 ABG HCO3 ABG Base Excess ABG Hemoglobin VBG pH Oxyhemoglobin Sodium Potassium Chloride Carbon Dioxide BUN Creatinine Glucose POC Glucose 191 H 166 H 184 H Lactic Acid Calcium AST ALT Alkaline Phosphatase CK-MB (CK-2) CK-MB (CK-2) Rel Index Total Protein Albumin TSH Urine WBC (Auto) Salicylates 05/22/17 05/22/17 05/23/17 14:03 21:45 05:41 WBC RBC Hgb Hct MCV MCH RDW Plt Count Lymph % (Auto) [place] % (Auto) Eos % (Auto) [place] # Seg Neutrophils % Seg Neuts % (Manual) Lymphocytes % (Manual) Seg Neutrophils # Seg Neutrophils # Man Lymphocytes # (Manual) APTT POC ABG pH ABG pH POC ABG pCO2 POC ABG pO2 ABG pO2 ABG HCO3 ABG Base Excess ABG Hemoglobin VBG pH Oxyhemoglobin Sodium Potassium Chloride Carbon Dioxide BUN Creatinine Glucose POC Glucose 206 H 178 H 206 H Lactic Acid Calcium AST ALT Alkaline Phosphatase CK-MB (CK-2) CK-MB (CK-2) Rel Index Total Protein Albumin TSH Urine WBC (Auto) Salicylates 05/23/17 05/23/17 05/24/17 14:09 22:48 05:21 WBC RBC Hgb Hct MCV MCH RDW Plt Count Lymph % (Auto) [place] % (Auto) Eos % (Auto) [place] # Seg Neutrophils % Seg Neuts % (Manual) Lymphocytes % (Manual) Seg Neutrophils # Seg Neutrophils # Man Lymphocytes # (Manual) APTT POC ABG pH ABG pH POC ABG pCO2 POC ABG pO2 ABG pO2 ABG HCO3 ABG Base Excess ABG Hemoglobin VBG pH Oxyhemoglobin Sodium Potassium Chloride Carbon Dioxide BUN Creatinine Glucose POC Glucose 148 H 181 H 162 H Lactic Acid Calcium AST ALT Alkaline Phosphatase CK-MB (CK-2) CK-MB (CK-2) Rel Index Total Protein Albumin TSH Urine WBC (Auto) Salicylates 05/24/17 05/24/17 05/25/17 13:32 21:55 06:49 WBC RBC Hgb Hct MCV MCH RDW Plt Count Lymph % (Auto) [place] % (Auto) Eos % (Auto) [place] # Seg Neutrophils % Seg Neuts % (Manual) Lymphocytes % (Manual) Seg Neutrophils # Seg Neutrophils # Man Lymphocytes # (Manual) APTT POC ABG pH ABG pH POC ABG pCO2 POC ABG pO2 ABG pO2 ABG HCO3 ABG Base Excess ABG Hemoglobin VBG pH Oxyhemoglobin Sodium Potassium Chloride Carbon Dioxide BUN Creatinine Glucose POC Glucose 216 H 144 H 151 H Lactic Acid Calcium AST ALT Alkaline Phosphatase CK-MB (CK-2) CK-MB (CK-2) Rel Index Total Protein Albumin TSH Urine WBC (Auto) Salicylates 05/25/17 05/25/17 05/26/17 15:32 21:58 05:46 WBC RBC Hgb Hct MCV MCH RDW Plt Count Lymph % (Auto) [place] % (Auto) Eos % (Auto) [place] # Seg Neutrophils % Seg Neuts % (Manual) Lymphocytes % (Manual) Seg Neutrophils # Seg Neutrophils # Man Lymphocytes # (Manual) APTT POC ABG pH ABG pH POC ABG pCO2 POC ABG pO2 ABG pO2 ABG HCO3 ABG Base Excess ABG Hemoglobin VBG pH Oxyhemoglobin Sodium Potassium Chloride Carbon Dioxide BUN Creatinine Glucose POC Glucose 136 H 160 H 225 H Lactic Acid Calcium AST ALT Alkaline Phosphatase CK-MB (CK-2) CK-MB (CK-2) Rel Index Total Protein Albumin TSH Urine WBC (Auto) Salicylates 05/26/17 05/27/17 05/27/17 22:32 05:52 14:47 WBC RBC Hgb Hct MCV MCH RDW Plt Count Lymph % (Auto) [place] % (Auto) Eos % (Auto) [place] # Seg Neutrophils % Seg Neuts % (Manual) Lymphocytes % (Manual) Seg Neutrophils # Seg Neutrophils # Man Lymphocytes # (Manual) APTT POC ABG pH ABG pH POC ABG pCO2 POC ABG pO2 ABG pO2 ABG HCO3 ABG Base Excess ABG Hemoglobin VBG pH Oxyhemoglobin Sodium Potassium Chloride Carbon Dioxide BUN Creatinine Glucose POC Glucose 161 H 197 H 117 H Lactic Acid Calcium AST ALT Alkaline Phosphatase CK-MB (CK-2) CK-MB (CK-2) Rel Index Total Protein Albumin TSH Urine WBC (Auto) Salicylates 05/27/17 05/28/17 05/28/17 21:49 05:54 06:49 WBC RBC Hgb Hct MCV MCH RDW Plt Count Lymph % (Auto) [place] % (Auto) Eos % (Auto) [place] # Seg Neutrophils % Seg Neuts % (Manual) Lymphocytes % (Manual) Seg Neutrophils # Seg Neutrophils # Man Lymphocytes # (Manual) APTT POC ABG pH ABG pH POC ABG pCO2 POC ABG pO2 ABG pO2 ABG HCO3 ABG Base Excess ABG Hemoglobin VBG pH Oxyhemoglobin Sodium Potassium Chloride Carbon Dioxide BUN Creatinine Glucose POC Glucose 148 H 60 L 59 L Lactic Acid Calcium AST ALT Alkaline Phosphatase CK-MB (CK-2) CK-MB (CK-2) Rel Index Total Protein Albumin TSH Urine WBC (Auto) Salicylates 05/28/17 05/28/17 05/28/17 14:32 16:04 21:43 WBC RBC Hgb Hct MCV MCH RDW Plt Count Lymph % (Auto) [place] % (Auto) Eos % (Auto) [place] # Seg Neutrophils % Seg Neuts % (Manual) Lymphocytes % (Manual) Seg Neutrophils # Seg Neutrophils # Man Lymphocytes # (Manual) APTT POC ABG pH ABG pH POC ABG pCO2 POC ABG pO2 ABG pO2 ABG HCO3 ABG Base Excess ABG Hemoglobin VBG pH Oxyhemoglobin Sodium Potassium Chloride Carbon Dioxide BUN Creatinine Glucose POC Glucose 55 L 109 H 235 H Lactic Acid Calcium AST ALT Alkaline Phosphatase CK-MB (CK-2) CK-MB (CK-2) Rel Index Total Protein Albumin TSH Urine WBC (Auto) Salicylates 05/29/17 05/29/17 05/29/17 06:14 13:23 22:46 WBC RBC Hgb Hct MCV MCH RDW Plt Count Lymph % (Auto) [place] % (Auto) Eos % (Auto) [place] # Seg Neutrophils % Seg Neuts % (Manual) Lymphocytes % (Manual) Seg Neutrophils # Seg Neutrophils # Man Lymphocytes # (Manual) APTT POC ABG pH ABG pH POC ABG pCO2 POC ABG pO2 ABG pO2 ABG HCO3 ABG Base Excess ABG Hemoglobin VBG pH Oxyhemoglobin Sodium Potassium Chloride Carbon Dioxide BUN Creatinine Glucose POC Glucose 260 H 173 H 151 H Lactic Acid Calcium AST ALT Alkaline Phosphatase CK-MB (CK-2) CK-MB (CK-2) Rel Index Total Protein Albumin TSH Urine WBC (Auto) Salicylates 05/30/17 05/30/17 05/31/17 05:20 13:56 14:56 WBC RBC Hgb Hct MCV MCH RDW Plt Count Lymph % (Auto) [place] % (Auto) Eos % (Auto) [place] # Seg Neutrophils % Seg Neuts % (Manual) Lymphocytes % (Manual) Seg Neutrophils # Seg Neutrophils # Man Lymphocytes # (Manual) APTT POC ABG pH ABG pH POC ABG pCO2 POC ABG pO2 ABG pO2 ABG HCO3 ABG Base Excess ABG Hemoglobin VBG pH Oxyhemoglobin Sodium Potassium Chloride Carbon Dioxide BUN Creatinine Glucose POC Glucose 250 H 187 H 139 H Lactic Acid Calcium AST ALT Alkaline Phosphatase CK-MB (CK-2) CK-MB (CK-2) Rel Index Total Protein Albumin TSH Urine WBC (Auto) Salicylates 06/01/17 06/01/17 06/01/17 05:37 13:10 21:34 WBC RBC Hgb Hct MCV MCH RDW Plt Count Lymph % (Auto) [place] % (Auto) Eos % (Auto) [place] # Seg Neutrophils % Seg Neuts % (Manual) Lymphocytes % (Manual) Seg Neutrophils # Seg Neutrophils # Man Lymphocytes # (Manual) APTT POC ABG pH ABG pH POC ABG pCO2 POC ABG pO2 ABG pO2 ABG HCO3 ABG Base Excess ABG Hemoglobin VBG pH Oxyhemoglobin Sodium Potassium Chloride Carbon Dioxide BUN Creatinine Glucose POC Glucose 207 H 136 H 109 H Lactic Acid Calcium AST ALT Alkaline Phosphatase CK-MB (CK-2) CK-MB (CK-2) Rel Index Total Protein Albumin TSH Urine WBC (Auto) Salicylates 06/02/17 06/02/17 06/03/17 05:15 15:44 00:49 WBC RBC Hgb Hct MCV MCH RDW Plt Count Lymph % (Auto) [place] % (Auto) Eos % (Auto) [place] # Seg Neutrophils % Seg Neuts % (Manual) Lymphocytes % (Manual) Seg Neutrophils # Seg Neutrophils # Man Lymphocytes # (Manual) APTT POC ABG pH ABG pH POC ABG pCO2 POC ABG pO2 ABG pO2 ABG HCO3 ABG Base Excess ABG Hemoglobin VBG pH Oxyhemoglobin Sodium Potassium Chloride Carbon Dioxide BUN Creatinine Glucose POC Glucose 121 H 229 H 134 H Lactic Acid Calcium AST ALT Alkaline Phosphatase CK-MB (CK-2) CK-MB (CK-2) Rel Index Total Protein Albumin TSH Urine WBC (Auto) Salicylates 06/03/17 06/03/17 06/04/17 13:46 22:42 05:37 WBC RBC Hgb Hct MCV MCH RDW Plt Count Lymph % (Auto) [place] % (Auto) Eos % (Auto) [place] # Seg Neutrophils % Seg Neuts % (Manual) Lymphocytes % (Manual) Seg Neutrophils # Seg Neutrophils # Man Lymphocytes # (Manual) APTT POC ABG pH ABG pH POC ABG pCO2 POC ABG pO2 ABG pO2 ABG HCO3 ABG Base Excess ABG Hemoglobin VBG pH Oxyhemoglobin Sodium Potassium Chloride Carbon Dioxide BUN Creatinine Glucose POC Glucose 230 H 158 H 144 H Lactic Acid Calcium AST ALT Alkaline Phosphatase CK-MB (CK-2) CK-MB (CK-2) Rel Index Total Protein Albumin TSH Urine WBC (Auto) Salicylates 06/04/17 14:04 WBC RBC Hgb Hct MCV MCH RDW Plt Count Lymph % (Auto) [place] % (Auto) Eos % (Auto) [place] # Seg Neutrophils % Seg Neuts % (Manual) Lymphocytes % (Manual) Seg Neutrophils # Seg Neutrophils # Man Lymphocytes # (Manual) APTT POC ABG pH ABG pH POC ABG pCO2 POC ABG pO2 ABG pO2 ABG HCO3 ABG Base Excess ABG Hemoglobin VBG pH Oxyhemoglobin Sodium Potassium Chloride Carbon Dioxide BUN Creatinine Glucose POC Glucose 168 H Lactic Acid Calcium AST ALT Alkaline Phosphatase CK-MB (CK-2) CK-MB (CK-2) Rel Index Total Protein Albumin TSH Urine WBC (Auto) Salicylates
[2017-06-04] MEDS: SIMPLE SYRUP FEEDTUBE PRN (22:37)
[2017-06-05] MEDS: HumuLIN R SUB-Q SCH ×2 (06:24→21:49)
--- NOTE | 2017-06-05 10:20 | Progress Note ---
Assessment and Plan Assessment and plan: Hypoglycemic brain injury. Patient was found hypoglycemic. He is now in coma, vegetative state, Unresponsive Persistent vegetative state. Supportive care Metabolic encephalopathy due to hypoglycemia Hypoglycemia/hypothermia, resolved Acute respiratory failure. on ventilator. Hyponatremia. Now resolved. Hypothyroidism Diabetes mellitus type 2. Check fingerstick glucose q 6h. Continue Levemir subcut daily Hypertension. BP stable Leukocytosis due to UTI. UTI with ESBL. Disposition. Comfort care, no escalation of care; would not check any further labs, CXRs, or cultures; would not work him up for infections in setting of fever, only treat w / Tylenol for palliative purposes; would not place another IV either Poor prognosis Unable to locate family. History Interval history: no new issues overnight 51 YO Male with CKD,HTN, DM presents to ED for evaluation. Pt unable to provide history. Pt history taken from ED staff, and medical records. Pt found down and unresponsive by his neighbor, who subsequently called EMS. Upon arrival, patient found unresponsive on the floor with a serum glucose of 21, and covered with ants with insulin syringes around him and a bottle of atenolol which still had many pills remaining, patient has a known history of alcohol abuse and delirium tremens. The patient was administered D5 approximate 500 mls during transport without change in mental status/level of consciousness. Pt seen and evaluated in ED was was found to be unable to protect his airway. Pt intubated and placed on vent support. Pt found to have evidence of hypothyroidism. He was started on Synthroid. He has since been in the ICU. The patient continued to deteriorate. He is in this grade 4 coma, brain imaging does not show any reversible cause. The patient remains in a persistent vegetative states. Sepsis has been ruled out. environmental services assistant try to locate family, even spoke to the family who he lives with. They themselves were unaware of any family members. After ethics committee meeting on the patient, the decision was made to make him DO NOT RESUSCITATE and to transfer him to hospice. Guardianship has been obtained but no authority to withdraw care. Continue supportative care. No new clinical change Hospitalist Physical - Constitutional Vitals: Temp Pulse Resp BP Pulse Ox 98.2 F 62 12 120/85 100 06/05/17 08:00 06/05/17 07:35 06/05/17 06:00 06/05/17 07:35 06/05/17 07:35 General appearance: Present: no acute distress - EENT Eyes: Present: PERRL, EOM intact ENT: hearing intact, clear oral mucosa, dentition normal - Neck Neck: Present: supple, normal ROM - Respiratory Respiratory effort: normal Respiratory: bilateral: CTA - Cardiovascular Rhythm: regular Heart Sounds: Present: S1 & S2. Absent: gallop, rub - Extremities Extremities: no ischemia, No edema, Full ROM - Abdominal General gastrointestinal: soft, non-tender, non-distended, normal bowel sounds - Integumentary Integumentary: Present: clear, warm, dry - Neurologic Neurologic: CNII-XII intact, moves all extremities Results - Labs CBC & Chem 7: 04/28/17 05:10 04/28/17 05:10 Labs: Laboratory Last Values WBC 9.3 K/mm3 (4.5-11.0) 04/28/17 05:10 RBC 3.48 M/mm3 (3.65-5.03) L 04/28/17 05:10 Hgb 8.8 gm/dl (11.8-15.2) L 04/28/17 05:10 Hct 26.7 % (35.5-45.6) L 04/28/17 05:10 MCV 77 fl (84-94) L 04/28/17 05:10 MCH 25 pg (28-32) L 04/28/17 05:10 MCHC 33 % (32-34) 04/28/17 05:10 RDW 17.0 % (13.2-15.2) H 04/28/17 05:10 Plt Count 515 K/mm3 (140-440) H 04/28/17 05:10 Lymph % (Auto) 18.4 % (13.4-35.0) 04/28/17 05:10 [place] % (Auto) 8.4 % (0.0-7.3) H 04/28/17 05:10 Eos % (Auto) 1.8 % (0.0-4.3) 04/28/17 05:10 Baso % (Auto) 0.8 % (0.0-1.8) 04/28/17 05:10 Lymph # 1.7 K/mm3 (1.2-5.4) 04/28/17 05:10 [place] # 0.8 K/mm3 (0.0-0.8) 04/28/17 05:10 Eos # 0.2 K/mm3 (0.0-0.4) 04/28/17 05:10 Baso # 0.1 K/mm3 (0.0-0.1) 04/28/17 05:10 Add Manual Diff Complete 01/10/17 04:30 Total Counted 100 01/10/17 04:30 Seg Neutrophils % 70.6 % (40.0-70.0) H 04/28/17 05:10 Seg Neuts % (Manual) 88.0 % (40.0-70.0) H 01/10/17 04:30 Band Neutrophils % 7.0 % 01/10/17 04:30 Lymphocytes % (Manual) 4.0 % (13.4-35.0) L 01/10/17 04:30 Reactive Lymphs % (Man) 0 % 01/10/17 04:30 Monocytes % (Manual) 1.0 % (0.0-7.3) 01/10/17 04:30 Eosinophils % (Manual) 0 % (0.0-4.3) 01/10/17 04:30 Basophils % (Manual) 0 % (0.0-1.8) 01/10/17 04:30 Metamyelocytes % 0 % 01/10/17 04:30 Myelocytes % 0 % 01/10/17 04:30 Promyelocytes % 0 % 01/10/17 04:30 Blast Cells % 0 % 01/10/17 04:30 Nucleated RBC % Not Reportable 01/10/17 04:30 Seg Neutrophils # 6.6 K/mm3 (1.8-7.7) 04/28/17 05:10 Seg Neutrophils # Man 21.2 K/mm3 (1.8-7.7) H 01/10/17 04:30 Band Neutrophils # 1.7 K/mm3 01/10/17 04:30 Lymphocytes # (Manual) 1.0 K/mm3 (1.2-5.4) L 01/10/17 04:30 Abs React Lymphs (Man) 0.0 K/mm3 01/10/17 04:30 Monocytes # (Manual) 0.2 K/mm3 (0.0-0.8) 01/10/17 04:30 Eosinophils # (Manual) 0.0 K/mm3 (0.0-0.4) 01/10/17 04:30 Basophils # (Manual) 0.0 K/mm3 (0.0-0.1) 01/10/17 04:30 Metamyelocytes # 0.0 K/mm3 01/10/17 04:30 Myelocytes # 0.0 K/mm3 01/10/17 04:30 Promyelocytes # 0.0 K/mm3 01/10/17 04:30 Blast Cells # 0.0 K/mm3 01/10/17 04:30 WBC Morphology Not Reportable 01/10/17 04:30 Hypersegmented Neuts Not Reportable 01/10/17 04:30 Hyposegmented Neuts Not Reportable 01/10/17 04:30 Hypogranular Neuts Not Reportable 01/10/17 04:30 Smudge Cells Not Reportable 01/10/17 04:30 Toxic Granulation Not Reportable 01/10/17 04:30 Toxic Vacuolation Not Reportable 01/10/17 04:30 Dohle Bodies Not Reportable 01/10/17 04:30 Pelger-Huet Anomaly Not Reportable 01/10/17 04:30 [place] Rods Not Reportable 01/10/17 04:30 Platelet Estimate Consistent w auto 01/10/17 04:30 Clumped Platelets Not Reportable 01/10/17 04:30 Plt Clumps, EDTA Not Reportable 01/10/17 04:30 Large Platelets Not Reportable 01/10/17 04:30 Giant Platelets Not Reportable 01/10/17 04:30 Platelet Satelliting Not Reportable 01/10/17 04:30 Plt Morphology Comment Not Reportable 01/10/17 04:30 RBC Morphology Not Reportable 01/10/17 04:30 Dimorphic RBCs Not Reportable 01/10/17 04:30 Polychromasia Not Reportable 01/10/17 04:30 Hypochromasia 1+ 01/10/17 04:30 Poikilocytosis Not Reportable 01/10/17 04:30 Anisocytosis Not Reportable 01/10/17 04:30 Microcytosis Not Reportable 01/10/17 04:30 Macrocytosis Not Reportable 01/10/17 04:30 Spherocytes Not Reportable 01/10/17 04:30 Pappenheimer Bodies Not Reportable 01/10/17 04:30 Sickle Cells Not Reportable 01/10/17 04:30 Target Cells Not Reportable 01/10/17 04:30 Tear Drop Cells Not Reportable 01/10/17 04:30 Ovalocytes Not Reportable 01/10/17 04:30 Helmet Cells Not Reportable 01/10/17 04:30 [place] Bodies Not Reportable 01/10/17 04:30 [place] Rings Not Reportable 01/10/17 04:30 Marc[place] Cells Not Reportable 01/10/17 04:30 Bite Cells Not Reportable 01/10/17 04:30 Crenated Cell Not Reportable 01/10/17 04:30 Elliptocytes Not Reportable 01/10/17 04:30 Acanthocytes (Spur) Not Reportable 01/10/17 04:30 Rouleaux Not Reportable 01/10/17 04:30 Hemoglobin C Crystals Not Reportable 01/10/17 04:30 Schistocytes Not Reportable 01/10/17 04:30 Malaria parasites Not Reportable 01/10/17 04:30 Kyle Bodies Not Reportable 01/10/17 04:30 Hem Pathologist Commnt No 01/10/17 04:30 PT 14.1 Sec. (12.2-14.9) 01/17/17 04:10 INR 1.04 (0.87-1.13) 01/17/17 04:10 APTT 36.6 Sec. (24.2-36.6) 01/17/17 04:10 POC ABG pH 7.442 (7.35-7.45) 01/31/17 18:55 ABG pH 7.420 pH Units (7.350-7.450) 01/17/17 04:35 POC ABG pCO2 32.8 (35-45) L 01/31/17 18:55 ABG pCO2 34.5 mm Hg 01/17/17 04:35 POC ABG pO2 82 (80-105) 01/31/17 18:55 ABG pO2 160.3 mm Hg (80.0-90.0) H 01/17/17 04:35 POC ABG HCO3 22.4 01/31/17 18:55 ABG HCO3 21.9 mmol/L (20.0-26.0) 01/17/17 04:35 POC ABG Total CO2 23 01/31/17 18:55 POC ABG O2 Sat 97 01/31/17 18:55 ABG O2 Saturation 99.0 % (95.0-99.0) 01/17/17 04:35 ABG O2 Content 11.1 (0.0-44) 01/17/17 04:35 POC ABG Base Excess -2 01/31/17 18:55 ABG Base Excess -2.3 mmol/L (-2.0-3.0) L 01/17/17 04:35 ABG Hemoglobin 7.9 gm/dl (14.0-18.0) L 01/17/17 04:35 ABG Carboxyhemoglobin 1.5 % (0.0-5.0) 01/17/17 04:35 ABG Methemoglobin 0.5 % (0.0-1.5) 01/17/17 04:35 VBG pH 7.284 (7.320-7.420) L 01/09/17 10:16 Oxyhemoglobin 97.1 % (95.0-99.0) 01/17/17 04:35 FiO2 25 % 01/31/17 18:55 Sodium 136 mmol/L (137-145) L 04/28/17 05:10 Potassium 4.5 mmol/L (3.6-5.0) 04/28/17 05:10 Chloride 95.2 mmol/L (98-107) L 04/28/17 05:10 Carbon Dioxide 27 mmol/L (22-30) 04/28/17 05:10 Anion Gap 18 mmol/L 04/28/17 05:10 BUN 42 mg/dL (9-20) H 04/28/17 05:10 Creatinine 0.9 mg/dL (0.8-1.5) 04/28/17 05:10 Estimated GFR > 60 ml/min 04/28/17 05:10 BUN/Creatinine Ratio 47 % 04/28/17 05:10 Glucose 63 mg/dL (75-100) L 04/28/17 05:10 POC Glucose 157 (70-105) H 06/05/17 05:27 Lactic Acid 0.80 mmol/L (0.7-2.0) 01/30/17 11:49 Calcium 9.1 mg/dL (8.4-10.2) 04/28/17 05:10 Phosphorus 3.10 mg/dL (2.5-4.5) 03/29/17 04:32 Magnesium 1.90 mg/dL (1.7-2.3) 03/29/17 04:32 Total Bilirubin 0.50 mg/dL (0.1-1.2) 04/28/17 05:10 AST 45 units/L (5-40) H 04/28/17 05:10 ALT 42 units/L (7-56) 04/28/17 05:10 Alkaline Phosphatase 271 units/L (35-129) H 04/28/17 05:10 Ammonia 35.0 umol/L (25-60) 01/09/17 10:16 Total Creatine Kinase 135 units/L (55-170) 01/09/17 10:16 CK-MB (CK-2) 7.1 ng/mL (0.0-4.0) H 01/09/17 10:16 CK-MB (CK-2) Rel Index 5.2 (0-4) H 01/09/17 10:16 Troponin T < 0.010 ng/mL (0.00-0.029) 01/09/17 10:16 NT-Pro-B Natriuret Pep 602.9 pg/mL (0-900) 01/09/17 10:16 Total Protein 8.9 g/dL (6.3-8.2) H 04/28/17 05:10 Albumin 2.5 g/dL (3.9-5) L 04/28/17 05:10 Albumin/Globulin Ratio 0.4 % 04/28/17 05:10 TSH 52.800 mlU/mL (0.270-4.200) H 01/09/17 10:16 Free T4 0.78 ng/dL (0.76-1.46) 01/09/17 10:16 Total Cortisol 54.8 mcg/dL () 01/09/17 16:19 Urine Color Yellow (Yellow) 01/28/17 17:52 Urine Turbidity Clear (Clear) 01/28/17 17:52 Urine pH 6.0 (5.0-7.0) 01/28/17 17:52 Ur Specific [place] 1.016 (1.003-1.030) 01/28/17 17:52 Urine Protein 100 mg/dl mg/dL (Negative) 01/28/17 17:52 Urine Glucose (UA) >=500 mg/dL (Negative) 01/28/17 17:52 Urine Ketones Neg mg/dL (Negative) 01/28/17 17:52 Urine Blood Sm (Negative) 01/28/17 17:52 Urine Nitrite Neg (Negative) 01/28/17 17:52 Urine Bilirubin Neg (Negative) 01/28/17 17:52 Urine Urobilinogen < 2.0 mg/dL (<2.0) 01/28/17 17:52 Ur Leukocyte Esterase Lg (Negative) 01/28/17 17:52 Urine WBC (Auto) > 182.0 /HPF (0.0-6.0) H 01/28/17 17:52 Urine RBC (Auto) 113.0 /HPF (0.0-6.0) 01/28/17 17:52 Urine Bacteria (Auto) 2+ /HPF (Negative) 01/28/17 17:52 Urine WBC Clumps 3+ /HPF 01/28/17 17:52 Urine Mucus Few /HPF 01/14/17 14:07 Urine Yeast (Budding) 3+ /HPF 01/14/17 14:07 Salicylates < 0.3 mg/dL (2.8-20.0) L 01/09/17 10:16 Urine Opiates Screen Presumptive negative 01/09/17 10:23 Urine Methadone Screen Presumptive negative 01/09/17 10:23 Acetaminophen < 15.0 ug/mL (10.0-30.0) 01/09/17 10:16 Ur Barbiturates Screen Presumptive negative 01/09/17 10:23 Ur Phencyclidine Scrn Presumptive negative 01/09/17 10:23 Ur Amphetamines Screen Presumptive negative 01/09/17 10:23 U Benzodiazepines Scrn Presumptive negative 01/09/17 10:23 Urine Cocaine Screen Presumptive negative 01/09/17 10:23 U Marijuana (THC) Screen Presumptive negative 01/09/17 10:23 Drugs of Abuse Note Disclamer 01/09/17 10:23 Plasma/Serum Alcohol < 0.01 gm% (0-0.07) 01/09/17 10:16
[2017-06-05] MEDS: PEPCID PO SCH ×2 (10:42→21:48)
[2017-06-05] MEDS: LEVEMIR (NF) SUB-Q SCH (10:42)
[2017-06-05] MEDS: HEPARIN SUB-Q SCH ×2 (10:43→21:48)
[2017-06-06] MEDS: HumuLIN R SUB-Q SCH ×9 (06:12→22:13)
--- NOTE | 2017-06-06 09:33 | Progress Note ---
Assessment and Plan 51 y/o male found down, concern for sepsis and now encephalopathic requiring mechanical ventilation. Unfortunately no new recommendations in this sad case. 1. continue supportive care 2. 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 I am aware that he is an AND but trach will not fix this problem and is not in my professional opinion the right thing to do for this patient. Most likely he will never be weaned from the vent and will remain in a persistent vegatative state. 3. Overall prognosis continues to be poor. 4. Will not check labs 5. Vitals should be qshift 6. This patient's possibility of awakening from this persistent vegatative is unlikely. The current status is that there has been paper work filed to obtain guardianship so that end of life decisions can be made. Supportive care is reasonable but checking daily labs and doing other invasive things to this patient I do not feel is morally and ethically appropriate. 7. Currently patient does not have IV access and is not requiring any medical therapy. Will not place another one at this time. 8. Per [place], went to court 05/03/17 for Guardianship. One has been appointed, awaiting to meet them. Per report, they agree with hospice care, but do not have the authority vs will not authorize withdrawal once at hospice. Subjective Date of service: 06/06/17 Principal diagnosis: Acute respiratory failure,encephalopathy Interval history: No acute events. No change in mental state. Objective Vital Signs - 12hr 06/05/17 06/05/17 06/06/17 22:00 22:01 00:00 Temperature 98.8 F Pulse Rate 61 60 Pulse Rate [ From Monitor] Respiratory 12 Rate Blood Pressure 120/85 O2 Sat by Pulse 99 Oximetry 06/06/17 06/06/17 06/06/17 00:01 01:05 02:01 Temperature Pulse Rate 61 64 63 Pulse Rate [ From Monitor] Respiratory 12 12 Rate Blood Pressure 120/85 120/85 120/85 O2 Sat by Pulse 100 100 98 Oximetry 06/06/17 06/06/17 06/06/17 03:00 04:01 04:10 Temperature Pulse Rate 62 73 Pulse Rate [ 62 From Monitor] Respiratory 14 12 Rate Blood Pressure 120/85 120/85 O2 Sat by Pulse 100 98 100 Oximetry 06/06/17 06/06/17 06/06/17 04:50 06:01 08:24 Temperature 97.3 F L Pulse Rate 65 65 Pulse Rate [ From Monitor] Respiratory 12 15 Rate Blood Pressure 120/85 O2 Sat by Pulse 100 100 Oximetry Constitutional: no acute distress, other (on vent) Eyes: non-icteric ENT: oropharynx moist, other (ETT in position) Neck: supple Effort: normal Ascultation: Bilateral: clear, diminished breath sounds Cardiovascular: regular rate and rhythm (no mrg) Gastrointestinal: normoactive bowel sounds, soft, non-tender, non-distended Integumentary: normal Extremities: no cyanosis, no edema, pink and warm Neurologic: pupils equal and round, other (opens eyes spontaneously, but no meaningful responce to stimuli) Psychiatric: other (unable to obtain) CBC and BMP: 04/28/17 05:10 04/28/17 05:10 ABG, PT/INR, D-dimer: ABG POC ABG pH 7.442 (7.35-7.45) 01/31/17 18:55 ABG pH 7.420 pH Units (7.350-7.450) 01/17/17 04:35 POC ABG pCO2 32.8 (35-45) L 01/31/17 18:55 ABG pCO2 34.5 mm Hg 01/17/17 04:35 POC ABG pO2 82 (80-105) 01/31/17 18:55 ABG pO2 160.3 mm Hg (80.0-90.0) H 01/17/17 04:35 POC ABG HCO3 22.4 01/31/17 18:55 POC ABG Total CO2 23 01/31/17 18:55 POC ABG O2 Sat 97 01/31/17 18:55 ABG O2 Saturation 99.0 % (95.0-99.0) 01/17/17 04:35 PT/INR, D-dimer PT 14.1 Sec. (12.2-14.9) 01/17/17 04:10 INR 1.04 (0.87-1.13) 01/17/17 04:10 Abnormal lab findings: Abnormal Labs 01/09/17 01/09/17 01/09/17 10:16 10:16 10:16 WBC RBC Hgb 9.7 L Hct 28.4 L MCV 76 L MCH 26 L RDW 17.2 H Plt Count 448 H Lymph % (Auto) [place] % (Auto) Eos % (Auto) [place] # Seg Neutrophils % 79.5 H Seg Neuts % (Manual) Lymphocytes % (Manual) Seg Neutrophils # Seg Neutrophils # Man Lymphocytes # (Manual) APTT 39.6 H POC ABG pH ABG pH POC ABG pCO2 POC ABG pO2 ABG pO2 ABG HCO3 ABG Base Excess ABG Hemoglobin VBG pH Oxyhemoglobin Sodium 132 L Potassium Chloride 96.7 L Carbon Dioxide 21 L BUN 34 H Creatinine Glucose POC Glucose Lactic Acid Calcium 8.3 L AST ALT Alkaline Phosphatase 151 H CK-MB (CK-2) 7.1 H CK-MB (CK-2) Rel Index 5.2 H Total Protein Albumin 3.3 L TSH Urine WBC (Auto) Salicylates 01/09/17 01/09/17 01/09/17 10:16 10:16 10:16 WBC RBC Hgb Hct MCV MCH RDW Plt Count Lymph % (Auto) [place] % (Auto) Eos % (Auto) [place] # Seg Neutrophils % Seg Neuts % (Manual) Lymphocytes % (Manual) Seg Neutrophils # Seg Neutrophils # Man Lymphocytes # (Manual) APTT POC ABG pH ABG pH POC ABG pCO2 POC ABG pO2 ABG pO2 ABG HCO3 ABG Base Excess ABG Hemoglobin VBG pH 7.284 L Oxyhemoglobin Sodium Potassium Chloride Carbon Dioxide BUN Creatinine Glucose POC Glucose Lactic Acid Calcium AST ALT Alkaline Phosphatase CK-MB (CK-2) CK-MB (CK-2) Rel Index Total Protein Albumin TSH 52.800 H Urine WBC (Auto) Salicylates < 0.3 L 01/09/17 01/09/17 01/09/17 10:23 11:14 12:49 WBC RBC Hgb Hct MCV MCH RDW Plt Count Lymph % (Auto) [place] % (Auto) Eos % (Auto) [place] # Seg Neutrophils % Seg Neuts % (Manual) Lymphocytes % (Manual) Seg Neutrophils # Seg Neutrophils # Man Lymphocytes # (Manual) APTT POC ABG pH ABG pH POC ABG pCO2 POC ABG pO2 643 H ABG pO2 ABG HCO3 ABG Base Excess ABG Hemoglobin VBG pH Oxyhemoglobin Sodium Potassium Chloride Carbon Dioxide BUN Creatinine Glucose POC Glucose < 40 L Lactic Acid Calcium AST ALT Alkaline Phosphatase CK-MB (CK-2) CK-MB (CK-2) Rel Index Total Protein Albumin TSH Urine WBC (Auto) 61.0 H Salicylates 01/09/17 01/09/17 01/09/17 13:13 14:21 15:09 WBC RBC Hgb Hct MCV MCH RDW Plt Count Lymph % (Auto) [place] % (Auto) Eos % (Auto) [place] # Seg Neutrophils % Seg Neuts % (Manual) Lymphocytes % (Manual) Seg Neutrophils # Seg Neutrophils # Man Lymphocytes # (Manual) APTT POC ABG pH ABG pH POC ABG pCO2 POC ABG pO2 ABG pO2 ABG HCO3 ABG Base Excess ABG Hemoglobin VBG pH Oxyhemoglobin Sodium Potassium Chloride Carbon Dioxide BUN Creatinine Glucose POC Glucose 128 H 65 L 120 H Lactic Acid Calcium AST ALT Alkaline Phosphatase CK-MB (CK-2) CK-MB (CK-2) Rel Index Total Protein Albumin TSH Urine WBC (Auto) Salicylates 01/09/17 01/09/17 01/10/17 16:28 17:14 04:30 WBC 24.1 H RBC 3.38 L Hgb 8.5 L Hct 26.0 L MCV 77 L MCH 25 L RDW 17.9 H Plt Count 474 H Lymph % (Auto) [place] % (Auto) Eos % (Auto) [place] # Seg Neutrophils % Seg Neuts % (Manual) 88.0 H Lymphocytes % (Manual) 4.0 L Seg Neutrophils # Seg Neutrophils # Man 21.2 H Lymphocytes # (Manual) 1.0 L APTT POC ABG pH ABG pH POC ABG pCO2 POC ABG pO2 ABG pO2 ABG HCO3 ABG Base Excess ABG Hemoglobin VBG pH Oxyhemoglobin Sodium Potassium Chloride Carbon Dioxide BUN Creatinine Glucose POC Glucose 44 L 112 H Lactic Acid Calcium AST ALT Alkaline Phosphatase CK-MB (CK-2) CK-MB (CK-2) Rel Index Total Protein Albumin TSH Urine WBC (Auto) Salicylates 01/10/17 01/10/17 01/10/17 04:30 05:41 05:45 WBC RBC Hgb Hct MCV MCH RDW Plt Count Lymph % (Auto) [place] % (Auto) Eos % (Auto) [place] # Seg Neutrophils % Seg Neuts % (Manual) Lymphocytes % (Manual) Seg Neutrophils # Seg Neutrophils # Man Lymphocytes # (Manual) APTT POC ABG pH ABG pH POC ABG pCO2 26.6 L POC ABG pO2 207 H ABG pO2 ABG HCO3 ABG Base Excess ABG Hemoglobin VBG pH Oxyhemoglobin Sodium Potassium Chloride Carbon Dioxide 17 L BUN 27 H Creatinine Glucose POC Glucose 68 L Lactic Acid Calcium 7.5 L AST ALT Alkaline Phosphatase CK-MB (CK-2) CK-MB (CK-2) Rel Index Total Protein Albumin TSH Urine WBC (Auto) Salicylates 01/10/17 01/10/17 01/10/17 07:47 10:50 13:41 WBC RBC Hgb Hct MCV MCH RDW Plt Count Lymph % (Auto) [place] % (Auto) Eos % (Auto) [place] # Seg Neutrophils % Seg Neuts % (Manual) Lymphocytes % (Manual) Seg Neutrophils # Seg Neutrophils # Man Lymphocytes # (Manual) APTT POC ABG pH ABG pH POC ABG pCO2 POC ABG pO2 ABG pO2 ABG HCO3 ABG Base Excess ABG Hemoglobin VBG pH Oxyhemoglobin Sodium Potassium Chloride Carbon Dioxide BUN Creatinine Glucose POC Glucose 148 H 165 H 114 H Lactic Acid Calcium AST ALT Alkaline Phosphatase CK-MB (CK-2) CK-MB (CK-2) Rel Index Total Protein Albumin TSH Urine WBC (Auto) Salicylates 01/10/17 01/10/17 01/10/17 20:20 21:39 23:24 WBC RBC Hgb Hct MCV MCH RDW Plt Count Lymph % (Auto) [place] % (Auto) Eos % (Auto) [place] # Seg Neutrophils % Seg Neuts % (Manual) Lymphocytes % (Manual) Seg Neutrophils # Seg Neutrophils # Man Lymphocytes # (Manual) APTT POC ABG pH ABG pH POC ABG pCO2 POC ABG pO2 ABG pO2 ABG HCO3 ABG Base Excess ABG Hemoglobin VBG pH Oxyhemoglobin Sodium Potassium Chloride Carbon Dioxide BUN Creatinine Glucose POC Glucose 150 H 175 H 155 H Lactic Acid Calcium AST ALT Alkaline Phosphatase CK-MB (CK-2) CK-MB (CK-2) Rel Index Total Protein Albumin TSH Urine WBC (Auto) Salicylates 01/11/17 01/11/17 01/11/17 00:19 04:06 05:20 WBC 15.2 H RBC 3.40 L Hgb 8.9 L Hct 26.3 L MCV 78 L MCH 26 L RDW 18.6 H Plt Count 462 H Lymph % (Auto) 13.2 L [place] % (Auto) Eos % (Auto) [place] # Seg Neutrophils % 80.8 H Seg Neuts % (Manual) Lymphocytes % (Manual) Seg Neutrophils # 12.3 H Seg Neutrophils # Man Lymphocytes # (Manual) APTT POC ABG pH 7.463 H ABG pH POC ABG pCO2 26.2 L POC ABG pO2 185 H ABG pO2 ABG HCO3 ABG Base Excess ABG Hemoglobin VBG pH Oxyhemoglobin Sodium Potassium Chloride Carbon Dioxide BUN Creatinine Glucose POC Glucose 163 H Lactic Acid Calcium AST ALT Alkaline Phosphatase CK-MB (CK-2) CK-MB (CK-2) Rel Index Total Protein Albumin TSH Urine WBC (Auto) Salicylates 01/11/17 01/11/17 01/11/17 05:20 06:21 07:57 WBC RBC Hgb Hct MCV MCH RDW Plt Count Lymph % (Auto) [place] % (Auto) Eos % (Auto) [place] # Seg Neutrophils % Seg Neuts % (Manual) Lymphocytes % (Manual) Seg Neutrophils # Seg Neutrophils # Man Lymphocytes # (Manual) APTT POC ABG pH ABG pH POC ABG pCO2 POC ABG pO2 ABG pO2 ABG HCO3 ABG Base Excess ABG Hemoglobin VBG pH Oxyhemoglobin Sodium Potassium 3.4 L Chloride 111.5 H Carbon Dioxide 17 L BUN Creatinine Glucose 147 H POC Glucose 139 H 188 H Lactic Acid Calcium 8.0 L AST ALT Alkaline Phosphatase CK-MB (CK-2) CK-MB (CK-2) Rel Index Total Protein Albumin TSH Urine WBC (Auto) Salicylates 01/11/17 01/11/17 01/11/17 11:46 16:50 23:15 WBC RBC Hgb Hct MCV MCH RDW Plt Count Lymph % (Auto) [place] % (Auto) Eos % (Auto) [place] # Seg Neutrophils % Seg Neuts % (Manual) Lymphocytes % (Manual) Seg Neutrophils # Seg Neutrophils # Man Lymphocytes # (Manual) APTT POC ABG pH ABG pH POC ABG pCO2 POC ABG pO2 ABG pO2 ABG HCO3 ABG Base Excess ABG Hemoglobin VBG pH Oxyhemoglobin Sodium Potassium Chloride Carbon Dioxide BUN Creatinine Glucose POC Glucose 199 H 235 H 155 H Lactic Acid Calcium AST ALT Alkaline Phosphatase CK-MB (CK-2) CK-MB (CK-2) Rel Index Total Protein Albumin TSH Urine WBC (Auto) Salicylates 01/12/17 01/12/17 01/12/17 05:02 06:56 14:50 WBC RBC Hgb Hct MCV MCH RDW Plt Count Lymph % (Auto) [place] % (Auto) Eos % (Auto) [place] # Seg Neutrophils % Seg Neuts % (Manual) Lymphocytes % (Manual) Seg Neutrophils # Seg Neutrophils # Man Lymphocytes # (Manual) APTT POC ABG pH ABG pH POC ABG pCO2 28.0 L POC ABG pO2 178 H ABG pO2 ABG HCO3 ABG Base Excess ABG Hemoglobin VBG pH Oxyhemoglobin Sodium Potassium Chloride Carbon Dioxide BUN Creatinine Glucose POC Glucose 119 H 164 H Lactic Acid Calcium AST ALT Alkaline Phosphatase CK-MB (CK-2) CK-MB (CK-2) Rel Index Total Protein Albumin TSH Urine WBC (Auto) Salicylates 01/13/17 01/13/17 01/13/17 03:37 03:37 04:26 WBC RBC 3.61 L Hgb 9.3 L Hct 28.0 L MCV 78 L MCH 26 L RDW 18.2 H Plt Count Lymph % (Auto) [place] % (Auto) Eos % (Auto) [place] # Seg Neutrophils % Seg Neuts % (Manual) Lymphocytes % (Manual) Seg Neutrophils # Seg Neutrophils # Man Lymphocytes # (Manual) APTT POC ABG pH 7.485 H ABG pH POC ABG pCO2 25.4 L POC ABG pO2 73 L ABG pO2 ABG HCO3 ABG Base Excess ABG Hemoglobin VBG pH Oxyhemoglobin Sodium Potassium Chloride 112.4 H Carbon Dioxide 19 L BUN Creatinine Glucose 118 H POC Glucose Lactic Acid Calcium 8.0 L AST ALT Alkaline Phosphatase CK-MB (CK-2) CK-MB (CK-2) Rel Index Total Protein Albumin TSH Urine WBC (Auto) Salicylates 01/13/17 01/13/17 01/13/17 06:15 11:50 17:31 WBC RBC Hgb Hct MCV MCH RDW Plt Count Lymph % (Auto) [place] % (Auto) Eos % (Auto) [place] # Seg Neutrophils % Seg Neuts % (Manual) Lymphocytes % (Manual) Seg Neutrophils # Seg Neutrophils # Man Lymphocytes # (Manual) APTT POC ABG pH ABG pH POC ABG pCO2 POC ABG pO2 ABG pO2 ABG HCO3 ABG Base Excess ABG Hemoglobin VBG pH Oxyhemoglobin Sodium Potassium Chloride Carbon Dioxide BUN Creatinine Glucose POC Glucose 116 H 171 H 203 H Lactic Acid Calcium AST ALT Alkaline Phosphatase CK-MB (CK-2) CK-MB (CK-2) Rel Index Total Protein Albumin TSH Urine WBC (Auto) Salicylates 01/14/17 01/14/17 01/14/17 00:02 04:50 04:50 WBC RBC 3.32 L Hgb 8.5 L Hct 26.1 L MCV 79 L MCH 26 L RDW 18.2 H Plt Count Lymph % (Auto) [place] % (Auto) 9.0 H Eos % (Auto) [place] # Seg Neutrophils % Seg Neuts % (Manual) Lymphocytes % (Manual) Seg Neutrophils # Seg Neutrophils # Man Lymphocytes # (Manual) APTT POC ABG pH ABG pH POC ABG pCO2 POC ABG pO2 ABG pO2 ABG HCO3 ABG Base Excess ABG Hemoglobin VBG pH Oxyhemoglobin Sodium Potassium Chloride 112.5 H Carbon Dioxide BUN Creatinine Glucose 149 H POC Glucose 157 H Lactic Acid Calcium 8.1 L AST ALT Alkaline Phosphatase CK-MB (CK-2) CK-MB (CK-2) Rel Index Total Protein Albumin TSH Urine WBC (Auto) Salicylates 01/14/17 01/14/17 01/14/17 05:10 11:27 14:07 WBC RBC Hgb Hct MCV MCH RDW Plt Count Lymph % (Auto) [place] % (Auto) Eos % (Auto) [place] # Seg Neutrophils % Seg Neuts % (Manual) Lymphocytes % (Manual) Seg Neutrophils # Seg Neutrophils # Man Lymphocytes # (Manual) APTT POC ABG pH ABG pH POC ABG pCO2 POC ABG pO2 ABG pO2 ABG HCO3 ABG Base Excess ABG Hemoglobin VBG pH Oxyhemoglobin Sodium Potassium Chloride Carbon Dioxide BUN Creatinine Glucose POC Glucose 176 H 147 H Lactic Acid Calcium AST ALT Alkaline Phosphatase CK-MB (CK-2) CK-MB (CK-2) Rel Index Total Protein Albumin TSH Urine WBC (Auto) 53.0 H Salicylates 01/14/17 01/15/17 01/15/17 16:52 00:04 05:26 WBC RBC Hgb Hct MCV MCH RDW Plt Count Lymph % (Auto) [place] % (Auto) Eos % (Auto) [place] # Seg Neutrophils % Seg Neuts % (Manual) Lymphocytes % (Manual) Seg Neutrophils # Seg Neutrophils # Man Lymphocytes # (Manual) APTT POC ABG pH ABG pH POC ABG pCO2 POC ABG pO2 ABG pO2 ABG HCO3 ABG Base Excess ABG Hemoglobin VBG pH Oxyhemoglobin Sodium Potassium Chloride Carbon Dioxide BUN Creatinine Glucose POC Glucose 131 H 193 H 215 H Lactic Acid Calcium AST ALT Alkaline Phosphatase CK-MB (CK-2) CK-MB (CK-2) Rel Index Total Protein Albumin TSH Urine WBC (Auto) Salicylates 01/15/17 01/15/17 01/15/17 11:49 17:47 21:33 WBC RBC Hgb Hct MCV MCH RDW Plt Count Lymph % (Auto) [place] % (Auto) Eos % (Auto) [place] # Seg Neutrophils % Seg Neuts % (Manual) Lymphocytes % (Manual) Seg Neutrophils # Seg Neutrophils # Man Lymphocytes # (Manual) APTT POC ABG pH ABG pH POC ABG pCO2 POC ABG pO2 ABG pO2 ABG HCO3 ABG Base Excess ABG Hemoglobin VBG pH Oxyhemoglobin Sodium Potassium Chloride Carbon Dioxide BUN Creatinine Glucose POC Glucose 121 H 211 H 275 H Lactic Acid Calcium AST ALT Alkaline Phosphatase CK-MB (CK-2) CK-MB (CK-2) Rel Index Total Protein Albumin TSH Urine WBC (Auto) Salicylates 01/16/17 01/16/17 01/16/17 04:30 05:28 13:45 WBC RBC Hgb Hct MCV MCH RDW Plt Count Lymph % (Auto) [place] % (Auto) Eos % (Auto) [place] # Seg Neutrophils % Seg Neuts % (Manual) Lymphocytes % (Manual) Seg Neutrophils # Seg Neutrophils # Man Lymphocytes # (Manual) APTT POC ABG pH ABG pH 7.457 H POC ABG pCO2 POC ABG pO2 ABG pO2 55.1 L ABG HCO3 19.4 L ABG Base Excess -4.0 L ABG Hemoglobin 6.8 L VBG pH Oxyhemoglobin 94.9 L Sodium Potassium Chloride Carbon Dioxide BUN Creatinine Glucose POC Glucose 271 H 236 H Lactic Acid Calcium AST ALT Alkaline Phosphatase CK-MB (CK-2) CK-MB (CK-2) Rel Index Total Protein Albumin TSH Urine WBC (Auto) Salicylates 01/16/17 01/17/17 01/17/17 21:39 04:10 04:10 WBC 4.4 L RBC 2.98 L Hgb 7.7 L Hct 23.3 L MCV 78 L MCH 26 L RDW 18.1 H Plt Count Lymph % (Auto) [place] % (Auto) Eos % (Auto) [place] # Seg Neutrophils % Seg Neuts % (Manual) Lymphocytes % (Manual) Seg Neutrophils # Seg Neutrophils # Man Lymphocytes # (Manual) APTT POC ABG pH ABG pH POC ABG pCO2 POC ABG pO2 ABG pO2 ABG HCO3 ABG Base Excess ABG Hemoglobin VBG pH Oxyhemoglobin Sodium Potassium 3.3 L Chloride 108.7 H Carbon Dioxide 20 L BUN 8 L Creatinine Glucose 202 H POC Glucose 258 H Lactic Acid Calcium 7.6 L AST ALT Alkaline Phosphatase CK-MB (CK-2) CK-MB (CK-2) Rel Index Total Protein Albumin TSH Urine WBC (Auto) Salicylates 01/17/17 01/17/17 01/17/17 04:35 12:23 16:01 WBC RBC Hgb Hct MCV MCH RDW Plt Count Lymph % (Auto) [place] % (Auto) Eos % (Auto) [place] # Seg Neutrophils % Seg Neuts % (Manual) Lymphocytes % (Manual) Seg Neutrophils # Seg Neutrophils # Man Lymphocytes # (Manual) APTT POC ABG pH ABG pH POC ABG pCO2 POC ABG pO2 ABG pO2 160.3 H ABG HCO3 ABG Base Excess -2.3 L ABG Hemoglobin 7.9 L VBG pH Oxyhemoglobin Sodium Potassium Chloride Carbon Dioxide BUN Creatinine Glucose POC Glucose 321 H 239 H Lactic Acid Calcium AST ALT Alkaline Phosphatase CK-MB (CK-2) CK-MB (CK-2) Rel Index Total Protein Albumin TSH Urine WBC (Auto) Salicylates 01/18/17 01/18/17 01/18/17 05:07 12:09 17:54 WBC RBC Hgb Hct MCV MCH RDW Plt Count Lymph % (Auto) [place] % (Auto) Eos % (Auto) [place] # Seg Neutrophils % Seg Neuts % (Manual) Lymphocytes % (Manual) Seg Neutrophils # Seg Neutrophils # Man Lymphocytes # (Manual) APTT POC ABG pH ABG pH POC ABG pCO2 POC ABG pO2 ABG pO2 ABG HCO3 ABG Base Excess ABG Hemoglobin VBG pH Oxyhemoglobin Sodium Potassium Chloride Carbon Dioxide BUN Creatinine Glucose POC Glucose 155 H 203 H 132 H Lactic Acid Calcium AST ALT Alkaline Phosphatase CK-MB (CK-2) CK-MB (CK-2) Rel Index Total Protein Albumin TSH Urine WBC (Auto) Salicylates 01/18/17 01/19/17 01/19/17 23:43 04:28 12:11 WBC RBC Hgb Hct MCV MCH RDW Plt Count Lymph % (Auto) [place] % (Auto) Eos % (Auto) [place] # Seg Neutrophils % Seg Neuts % (Manual) Lymphocytes % (Manual) Seg Neutrophils # Seg Neutrophils # Man Lymphocytes # (Manual) APTT POC ABG pH ABG pH POC ABG pCO2 POC ABG pO2 ABG pO2 ABG HCO3 ABG Base Excess ABG Hemoglobin VBG pH Oxyhemoglobin Sodium Potassium Chloride Carbon Dioxide BUN Creatinine Glucose POC Glucose 125 H 182 H 153 H Lactic Acid Calcium AST ALT Alkaline Phosphatase CK-MB (CK-2) CK-MB (CK-2) Rel Index Total Protein Albumin TSH Urine WBC (Auto) Salicylates 01/19/17 01/20/17 01/20/17 17:23 00:12 05:44 WBC RBC Hgb Hct MCV MCH RDW Plt Count Lymph % (Auto) [place] % (Auto) Eos % (Auto) [place] # Seg Neutrophils % Seg Neuts % (Manual) Lymphocytes % (Manual) Seg Neutrophils # Seg Neutrophils # Man Lymphocytes # (Manual) APTT POC ABG pH ABG pH POC ABG pCO2 POC ABG pO2 ABG pO2 ABG HCO3 ABG Base Excess ABG Hemoglobin VBG pH Oxyhemoglobin Sodium Potassium Chloride Carbon Dioxide BUN Creatinine Glucose POC Glucose 66 L 139 H 176 H Lactic Acid Calcium AST ALT Alkaline Phosphatase CK-MB (CK-2) CK-MB (CK-2) Rel Index Total Protein Albumin TSH Urine WBC (Auto) Salicylates 01/20/17 01/20/17 01/20/17 11:48 17:42 23:43 WBC RBC Hgb Hct MCV MCH RDW Plt Count Lymph % (Auto) [place] % (Auto) Eos % (Auto) [place] # Seg Neutrophils % Seg Neuts % (Manual) Lymphocytes % (Manual) Seg Neutrophils # Seg Neutrophils # Man Lymphocytes # (Manual) APTT POC ABG pH ABG pH POC ABG pCO2 POC ABG pO2 ABG pO2 ABG HCO3 ABG Base Excess ABG Hemoglobin VBG pH Oxyhemoglobin Sodium Potassium Chloride Carbon Dioxide BUN Creatinine Glucose POC Glucose 218 H 132 H 178 H Lactic Acid Calcium AST ALT Alkaline Phosphatase CK-MB (CK-2) CK-MB (CK-2) Rel Index Total Protein Albumin TSH Urine WBC (Auto) Salicylates 01/21/17 01/21/17 01/21/17 05:34 11:17 23:37 WBC RBC Hgb Hct MCV MCH RDW Plt Count Lymph % (Auto) [place] % (Auto) Eos % (Auto) [place] # Seg Neutrophils % Seg Neuts % (Manual) Lymphocytes % (Manual) Seg Neutrophils # Seg Neutrophils # Man Lymphocytes # (Manual) APTT POC ABG pH ABG pH POC ABG pCO2 POC ABG pO2 ABG pO2 ABG HCO3 ABG Base Excess ABG Hemoglobin VBG pH Oxyhemoglobin Sodium Potassium Chloride Carbon Dioxide BUN Creatinine Glucose POC Glucose 106 H 213 H 140 H Lactic Acid Calcium AST ALT Alkaline Phosphatase CK-MB (CK-2) CK-MB (CK-2) Rel Index Total Protein Albumin TSH Urine WBC (Auto) Salicylates 01/22/17 01/22/17 01/22/17 04:00 04:00 04:58 WBC RBC 3.26 L Hgb 8.3 L Hct 25.5 L MCV 78 L MCH 25 L RDW 17.9 H Plt Count Lymph % (Auto) [place] % (Auto) 7.9 H Eos % (Auto) 6.2 H [place] # Seg Neutrophils % Seg Neuts % (Manual) Lymphocytes % (Manual) Seg Neutrophils # Seg Neutrophils # Man Lymphocytes # (Manual) APTT POC ABG pH ABG pH POC ABG pCO2 POC ABG pO2 ABG pO2 ABG HCO3 ABG Base Excess ABG Hemoglobin VBG pH Oxyhemoglobin Sodium Potassium Chloride 95.5 L Carbon Dioxide 31 H D BUN Creatinine Glucose 134 H POC Glucose 146 H Lactic Acid Calcium AST 44 H ALT Alkaline Phosphatase 379 H CK-MB (CK-2) CK-MB (CK-2) Rel Index Total Protein Albumin 2.7 L TSH Urine WBC (Auto) Salicylates 01/22/17 01/22/17 01/22/17 12:12 18:12 23:39 WBC RBC Hgb Hct MCV MCH RDW Plt Count Lymph % (Auto) [place] % (Auto) Eos % (Auto) [place] # Seg Neutrophils % Seg Neuts % (Manual) Lymphocytes % (Manual) Seg Neutrophils # Seg Neutrophils # Man Lymphocytes # (Manual) APTT POC ABG pH ABG pH POC ABG pCO2 POC ABG pO2 ABG pO2 ABG HCO3 ABG Base Excess ABG Hemoglobin VBG pH Oxyhemoglobin Sodium Potassium Chloride Carbon Dioxide BUN Creatinine Glucose POC Glucose 255 H 182 H 134 H Lactic Acid Calcium AST ALT Alkaline Phosphatase CK-MB (CK-2) CK-MB (CK-2) Rel Index Total Protein Albumin TSH Urine WBC (Auto) Salicylates 01/23/17 01/23/17 01/23/17 04:43 12:12 17:36 WBC RBC Hgb Hct MCV MCH RDW Plt Count Lymph % (Auto) [place] % (Auto) Eos % (Auto) [place] # Seg Neutrophils % Seg Neuts % (Manual) Lymphocytes % (Manual) Seg Neutrophils # Seg Neutrophils # Man Lymphocytes # (Manual) APTT POC ABG pH ABG pH POC ABG pCO2 POC ABG pO2 ABG pO2 ABG HCO3 ABG Base Excess ABG Hemoglobin VBG pH Oxyhemoglobin Sodium Potassium Chloride Carbon Dioxide BUN Creatinine Glucose POC Glucose 218 H 128 H 156 H Lactic Acid Calcium AST ALT Alkaline Phosphatase CK-MB (CK-2) CK-MB (CK-2) Rel Index Total Protein Albumin TSH Urine WBC (Auto) Salicylates 01/24/17 01/24/17 01/24/17 00:08 05:16 11:40 WBC RBC Hgb Hct MCV MCH RDW Plt Count Lymph % (Auto) [place] % (Auto) Eos % (Auto) [place] # Seg Neutrophils % Seg Neuts % (Manual) Lymphocytes % (Manual) Seg Neutrophils # Seg Neutrophils # Man Lymphocytes # (Manual) APTT POC ABG pH ABG pH POC ABG pCO2 POC ABG pO2 ABG pO2 ABG HCO3 ABG Base Excess ABG Hemoglobin VBG pH Oxyhemoglobin Sodium Potassium Chloride Carbon Dioxide BUN Creatinine Glucose POC Glucose 129 H 169 H 187 H Lactic Acid Calcium AST ALT Alkaline Phosphatase CK-MB (CK-2) CK-MB (CK-2) Rel Index Total Protein Albumin TSH Urine WBC (Auto) Salicylates 01/24/17 01/24/17 01/25/17 17:43 23:23 04:56 WBC RBC Hgb Hct MCV MCH RDW Plt Count Lymph % (Auto) [place] % (Auto) Eos % (Auto) [place] # Seg Neutrophils % Seg Neuts % (Manual) Lymphocytes % (Manual) Seg Neutrophils # Seg Neutrophils # Man Lymphocytes # (Manual) APTT POC ABG pH ABG pH POC ABG pCO2 POC ABG pO2 ABG pO2 ABG HCO3 ABG Base Excess ABG Hemoglobin VBG pH Oxyhemoglobin Sodium Potassium Chloride Carbon Dioxide BUN Creatinine Glucose POC Glucose 215 H 222 H 210 H Lactic Acid Calcium AST ALT Alkaline Phosphatase CK-MB (CK-2) CK-MB (CK-2) Rel Index Total Protein Albumin TSH Urine WBC (Auto) Salicylates 01/25/17 01/25/17 01/26/17 11:52 17:37 00:02 WBC RBC Hgb Hct MCV MCH RDW Plt Count Lymph % (Auto) [place] % (Auto) Eos % (Auto) [place] # Seg Neutrophils % Seg Neuts % (Manual) Lymphocytes % (Manual) Seg Neutrophils # Seg Neutrophils # Man Lymphocytes # (Manual) APTT POC ABG pH ABG pH POC ABG pCO2 POC ABG pO2 ABG pO2 ABG HCO3 ABG Base Excess ABG Hemoglobin VBG pH Oxyhemoglobin Sodium Potassium Chloride Carbon Dioxide BUN Creatinine Glucose POC Glucose 284 H 218 H 192 H Lactic Acid Calcium AST ALT Alkaline Phosphatase CK-MB (CK-2) CK-MB (CK-2) Rel Index Total Protein Albumin TSH Urine WBC (Auto) Salicylates 01/26/17 01/26/17 01/26/17 05:33 12:17 17:50 WBC RBC Hgb Hct MCV MCH RDW Plt Count Lymph % (Auto) [place] % (Auto) Eos % (Auto) [place] # Seg Neutrophils % Seg Neuts % (Manual) Lymphocytes % (Manual) Seg Neutrophils # Seg Neutrophils # Man Lymphocytes # (Manual) APTT POC ABG pH ABG pH POC ABG pCO2 POC ABG pO2 ABG pO2 ABG HCO3 ABG Base Excess ABG Hemoglobin VBG pH Oxyhemoglobin Sodium Potassium Chloride Carbon Dioxide BUN Creatinine Glucose POC Glucose 199 H 227 H 229 H Lactic Acid Calcium AST ALT Alkaline Phosphatase CK-MB (CK-2) CK-MB (CK-2) Rel Index Total Protein Albumin TSH Urine WBC (Auto) Salicylates 01/26/17 01/27/17 01/27/17 23:57 05:31 11:42 WBC RBC Hgb Hct MCV MCH RDW Plt Count Lymph % (Auto) [place] % (Auto) Eos % (Auto) [place] # Seg Neutrophils % Seg Neuts % (Manual) Lymphocytes % (Manual) Seg Neutrophils # Seg Neutrophils # Man Lymphocytes # (Manual) APTT POC ABG pH ABG pH POC ABG pCO2 POC ABG pO2 ABG pO2 ABG HCO3 ABG Base Excess ABG Hemoglobin VBG pH Oxyhemoglobin Sodium Potassium Chloride Carbon Dioxide BUN Creatinine Glucose POC Glucose 186 H 285 H 260 H Lactic Acid Calcium AST ALT Alkaline Phosphatase CK-MB (CK-2) CK-MB (CK-2) Rel Index Total Protein Albumin TSH Urine WBC (Auto) Salicylates 01/27/17 01/27/17 01/27/17 17:47 23:58 Unknown WBC 12.1 H RBC 3.28 L Hgb 8.5 L Hct 25.5 L MCV 78 L MCH 26 L RDW 16.8 H Plt Count 601 H Lymph % (Auto) [place] % (Auto) Eos % (Auto) [place] # Seg Neutrophils % Seg Neuts % (Manual) Lymphocytes % (Manual) Seg Neutrophils # Seg Neutrophils # Man Lymphocytes # (Manual) APTT POC ABG pH ABG pH POC ABG pCO2 POC ABG pO2 ABG pO2 ABG HCO3 ABG Base Excess ABG Hemoglobin VBG pH Oxyhemoglobin Sodium Potassium Chloride Carbon Dioxide BUN Creatinine Glucose POC Glucose 329 H 225 H Lactic Acid Calcium AST ALT Alkaline Phosphatase CK-MB (CK-2) CK-MB (CK-2) Rel Index Total Protein Albumin TSH Urine WBC (Auto) Salicylates 01/27/17 01/28/17 01/28/17 Unknown 03:44 03:44 WBC RBC 3.14 L Hgb 8.2 L Hct 24.1 L MCV 77 L MCH 26 L RDW 16.9 H Plt Count 567 H Lymph % (Auto) [place] % (Auto) Eos % (Auto) [place] # Seg Neutrophils % Seg Neuts % (Manual) Lymphocytes % (Manual) Seg Neutrophils # Seg Neutrophils # Man Lymphocytes # (Manual) APTT POC ABG pH ABG pH POC ABG pCO2 POC ABG pO2 ABG pO2 ABG HCO3 ABG Base Excess ABG Hemoglobin VBG pH Oxyhemoglobin Sodium 128 L Potassium 5.4 H Chloride 87.5 L Carbon Dioxide BUN 44 H 42 H Creatinine Glucose 250 H 128 H POC Glucose Lactic Acid Calcium AST ALT Alkaline Phosphatase CK-MB (CK-2) CK-MB (CK-2) Rel Index Total Protein Albumin TSH Urine WBC (Auto) Salicylates 01/28/17 01/28/17 01/28/17 11:43 16:47 17:52 WBC RBC Hgb Hct MCV MCH RDW Plt Count Lymph % (Auto) [place] % (Auto) Eos % (Auto) [place] # Seg Neutrophils % Seg Neuts % (Manual) Lymphocytes % (Manual) Seg Neutrophils # Seg Neutrophils # Man Lymphocytes # (Manual) APTT POC ABG pH ABG pH POC ABG pCO2 POC ABG pO2 ABG pO2 ABG HCO3 ABG Base Excess ABG Hemoglobin VBG pH Oxyhemoglobin Sodium Potassium Chloride Carbon Dioxide BUN Creatinine Glucose POC Glucose 351 H 249 H Lactic Acid Calcium AST ALT Alkaline Phosphatase CK-MB (CK-2) CK-MB (CK-2) Rel Index Total Protein Albumin TSH Urine WBC (Auto) > 182.0 H Salicylates 01/29/17 01/29/17 01/29/17 05:25 05:25 09:32 WBC 13.6 H RBC 3.25 L Hgb 8.3 L Hct 25.1 L MCV 77 L MCH 26 L RDW 16.8 H Plt Count 514 H Lymph % (Auto) [place] % (Auto) Eos % (Auto) [place] # Seg Neutrophils % Seg Neuts % (Manual) Lymphocytes % (Manual) Seg Neutrophils # Seg Neutrophils # Man Lymphocytes # (Manual) APTT POC ABG pH ABG pH POC ABG pCO2 POC ABG pO2 ABG pO2 ABG HCO3 ABG Base Excess ABG Hemoglobin VBG pH Oxyhemoglobin Sodium Potassium Chloride 97.8 L Carbon Dioxide BUN 34 H Creatinine Glucose 222 H POC Glucose Lactic Acid 2.50 H* Calcium AST ALT Alkaline Phosphatase CK-MB (CK-2) CK-MB (CK-2) Rel Index Total Protein Albumin TSH Urine WBC (Auto) Salicylates 01/29/17 01/29/17 01/29/17 11:56 18:11 23:55 WBC RBC Hgb Hct MCV MCH RDW Plt Count Lymph % (Auto) [place] % (Auto) Eos % (Auto) [place] # Seg Neutrophils % Seg Neuts % (Manual) Lymphocytes % (Manual) Seg Neutrophils # Seg Neutrophils # Man Lymphocytes # (Manual) APTT POC ABG pH ABG pH POC ABG pCO2 POC ABG pO2 ABG pO2 ABG HCO3 ABG Base Excess ABG Hemoglobin VBG pH Oxyhemoglobin Sodium Potassium Chloride Carbon Dioxide BUN Creatinine Glucose POC Glucose 261 H 215 H 176 H Lactic Acid Calcium AST ALT Alkaline Phosphatase CK-MB (CK-2) CK-MB (CK-2) Rel Index Total Protein Albumin TSH Urine WBC (Auto) Salicylates 01/30/17 01/30/17 01/30/17 05:31 05:31 05:34 WBC 15.2 H RBC 3.09 L Hgb 7.9 L Hct 23.9 L MCV 77 L MCH 26 L RDW 16.9 H Plt Count 569 H Lymph % (Auto) [place] % (Auto) Eos % (Auto) [place] # Seg Neutrophils % Seg Neuts % (Manual) Lymphocytes % (Manual) Seg Neutrophils # Seg Neutrophils # Man Lymphocytes # (Manual) APTT POC ABG pH ABG pH POC ABG pCO2 POC ABG pO2 ABG pO2 ABG HCO3 ABG Base Excess ABG Hemoglobin VBG pH Oxyhemoglobin Sodium Potassium Chloride Carbon Dioxide BUN 24 H Creatinine Glucose 235 H POC Glucose 243 H Lactic Acid Calcium AST ALT Alkaline Phosphatase CK-MB (CK-2) CK-MB (CK-2) Rel Index Total Protein Albumin TSH Urine WBC (Auto) Salicylates 01/30/17 01/30/17 01/30/17 11:38 17:58 23:29 WBC RBC Hgb Hct MCV MCH RDW Plt Count Lymph % (Auto) [place] % (Auto) Eos % (Auto) [place] # Seg Neutrophils % Seg Neuts % (Manual) Lymphocytes % (Manual) Seg Neutrophils # Seg Neutrophils # Man Lymphocytes # (Manual) APTT POC ABG pH ABG pH POC ABG pCO2 POC ABG pO2 ABG pO2 ABG HCO3 ABG Base Excess ABG Hemoglobin VBG pH Oxyhemoglobin Sodium Potassium Chloride Carbon Dioxide BUN Creatinine Glucose POC Glucose 298 H 208 H 245 H Lactic Acid Calcium AST ALT Alkaline Phosphatase CK-MB (CK-2) CK-MB (CK-2) Rel Index Total Protein Albumin TSH Urine WBC (Auto) Salicylates 01/31/17 01/31/17 01/31/17 04:39 04:39 05:57 WBC 11.4 H RBC 3.22 L Hgb 8.2 L Hct 24.9 L MCV 78 L MCH 25 L RDW 17.2 H Plt Count 576 H Lymph % (Auto) [place] % (Auto) Eos % (Auto) [place] # Seg Neutrophils % Seg Neuts % (Manual) Lymphocytes % (Manual) Seg Neutrophils # Seg Neutrophils # Man Lymphocytes # (Manual) APTT POC ABG pH ABG pH POC ABG pCO2 POC ABG pO2 ABG pO2 ABG HCO3 ABG Base Excess ABG Hemoglobin VBG pH Oxyhemoglobin Sodium Potassium Chloride Carbon Dioxide BUN Creatinine 0.7 L Glucose 223 H POC Glucose 264 H Lactic Acid Calcium AST ALT Alkaline Phosphatase CK-MB (CK-2) CK-MB (CK-2) Rel Index Total Protein Albumin TSH Urine WBC (Auto) Salicylates 01/31/17 01/31/17 01/31/17 12:23 17:41 18:55 WBC RBC Hgb Hct MCV MCH RDW Plt Count Lymph % (Auto) [place] % (Auto) Eos % (Auto) [place] # Seg Neutrophils % Seg Neuts % (Manual) Lymphocytes % (Manual) Seg Neutrophils # Seg Neutrophils # Man Lymphocytes # (Manual) APTT POC ABG pH ABG pH POC ABG pCO2 32.8 L POC ABG pO2 ABG pO2 ABG HCO3 ABG Base Excess ABG Hemoglobin VBG pH Oxyhemoglobin Sodium Potassium Chloride Carbon Dioxide BUN Creatinine Glucose POC Glucose 252 H 208 H Lactic Acid Calcium AST ALT Alkaline Phosphatase CK-MB (CK-2) CK-MB (CK-2) Rel Index Total Protein Albumin TSH Urine WBC (Auto) Salicylates 01/31/17 02/01/17 02/01/17 22:59 03:38 03:38 WBC RBC 2.81 L Hgb 7.4 L Hct 22.1 L MCV 79 L MCH 27 L RDW 17.0 H Plt Count 540 H Lymph % (Auto) [place] % (Auto) Eos % (Auto) [place] # Seg Neutrophils % Seg Neuts % (Manual) Lymphocytes % (Manual) Seg Neutrophils # Seg Neutrophils # Man Lymphocytes # (Manual) APTT POC ABG pH ABG pH POC ABG pCO2 POC ABG pO2 ABG pO2 ABG HCO3 ABG Base Excess ABG Hemoglobin VBG pH Oxyhemoglobin Sodium Potassium Chloride Carbon Dioxide 21 L BUN Creatinine 0.7 L Glucose POC Glucose 40 L Lactic Acid Calcium AST ALT Alkaline Phosphatase CK-MB (CK-2) CK-MB (CK-2) Rel Index Total Protein Albumin TSH Urine WBC (Auto) Salicylates 02/01/17 02/01/17 02/01/17 05:17 12:19 16:44 WBC RBC Hgb Hct MCV MCH RDW Plt Count Lymph % (Auto) [place] % (Auto) Eos % (Auto) [place] # Seg Neutrophils % Seg Neuts % (Manual) Lymphocytes % (Manual) Seg Neutrophils # Seg Neutrophils # Man Lymphocytes # (Manual) APTT POC ABG pH ABG pH POC ABG pCO2 POC ABG pO2 ABG pO2 ABG HCO3 ABG Base Excess ABG Hemoglobin VBG pH Oxyhemoglobin Sodium Potassium Chloride Carbon Dioxide BUN Creatinine Glucose POC Glucose 140 H 213 H 172 H Lactic Acid Calcium AST ALT Alkaline Phosphatase CK-MB (CK-2) CK-MB (CK-2) Rel Index Total Protein Albumin TSH Urine WBC (Auto) Salicylates 02/01/17 02/02/17 02/02/17 23:59 05:14 11:24 WBC RBC Hgb Hct MCV MCH RDW Plt Count Lymph % (Auto) [place] % (Auto) Eos % (Auto) [place] # Seg Neutrophils % Seg Neuts % (Manual) Lymphocytes % (Manual) Seg Neutrophils # Seg Neutrophils # Man Lymphocytes # (Manual) APTT POC ABG pH ABG pH POC ABG pCO2 POC ABG pO2 ABG pO2 ABG HCO3 ABG Base Excess ABG Hemoglobin VBG pH Oxyhemoglobin Sodium Potassium Chloride Carbon Dioxide BUN Creatinine Glucose POC Glucose 181 H 194 H 209 H Lactic Acid Calcium AST ALT Alkaline Phosphatase CK-MB (CK-2) CK-MB (CK-2) Rel Index Total Protein Albumin TSH Urine WBC (Auto) Salicylates 02/02/17 02/02/17 02/02/17 11:46 11:46 17:47 WBC RBC 2.94 L Hgb 7.5 L Hct 23.0 L MCV 78 L MCH 25 L RDW 16.9 H Plt Count 520 H Lymph % (Auto) [place] % (Auto) Eos % (Auto) [place] # Seg Neutrophils % Seg Neuts % (Manual) Lymphocytes % (Manual) Seg Neutrophils # Seg Neutrophils # Man Lymphocytes # (Manual) APTT POC ABG pH ABG pH POC ABG pCO2 POC ABG pO2 ABG pO2 ABG HCO3 ABG Base Excess ABG Hemoglobin VBG pH Oxyhemoglobin Sodium Potassium Chloride Carbon Dioxide BUN Creatinine 0.6 L Glucose 189 H POC Glucose 147 H Lactic Acid Calcium 8.1 L AST ALT Alkaline Phosphatase CK-MB (CK-2) CK-MB (CK-2) Rel Index Total Protein Albumin TSH Urine WBC (Auto) Salicylates 02/02/17 02/03/17 02/03/17 23:32 05:53 11:19 WBC RBC Hgb Hct MCV MCH RDW Plt Count Lymph % (Auto) [place] % (Auto) Eos % (Auto) [place] # Seg Neutrophils % Seg Neuts % (Manual) Lymphocytes % (Manual) Seg Neutrophils # Seg Neutrophils # Man Lymphocytes # (Manual) APTT POC ABG pH ABG pH POC ABG pCO2 POC ABG pO2 ABG pO2 ABG HCO3 ABG Base Excess ABG Hemoglobin VBG pH Oxyhemoglobin Sodium Potassium Chloride Carbon Dioxide BUN Creatinine Glucose POC Glucose 176 H 224 H 228 H Lactic Acid Calcium AST ALT Alkaline Phosphatase CK-MB (CK-2) CK-MB (CK-2) Rel Index Total Protein Albumin TSH Urine WBC (Auto) Salicylates 02/03/17 02/03/17 02/04/17 16:59 23:38 05:45 WBC RBC Hgb Hct MCV MCH RDW Plt Count Lymph % (Auto) [place] % (Auto) Eos % (Auto) [place] # Seg Neutrophils % Seg Neuts % (Manual) Lymphocytes % (Manual) Seg Neutrophils # Seg Neutrophils # Man Lymphocytes # (Manual) APTT POC ABG pH ABG pH POC ABG pCO2 POC ABG pO2 ABG pO2 ABG HCO3 ABG Base Excess ABG Hemoglobin VBG pH Oxyhemoglobin Sodium Potassium Chloride Carbon Dioxide BUN Creatinine Glucose POC Glucose 189 H 191 H 251 H Lactic Acid Calcium AST ALT Alkaline Phosphatase CK-MB (CK-2) CK-MB (CK-2) Rel Index Total Protein Albumin TSH Urine WBC (Auto) Salicylates 02/04/17 02/04/17 02/05/17 11:20 17:20 00:17 WBC RBC Hgb Hct MCV MCH RDW Plt Count Lymph % (Auto) [place] % (Auto) Eos % (Auto) [place] # Seg Neutrophils % Seg Neuts % (Manual) Lymphocytes % (Manual) Seg Neutrophils # Seg Neutrophils # Man Lymphocytes # (Manual) APTT POC ABG pH ABG pH POC ABG pCO2 POC ABG pO2 ABG pO2 ABG HCO3 ABG Base Excess ABG Hemoglobin VBG pH Oxyhemoglobin Sodium Potassium Chloride Carbon Dioxide BUN Creatinine Glucose POC Glucose 243 H 163 H 200 H Lactic Acid Calcium AST ALT Alkaline Phosphatase CK-MB (CK-2) CK-MB (CK-2) Rel Index Total Protein Albumin TSH Urine WBC (Auto) Salicylates 02/05/17 02/05/17 02/05/17 05:38 12:38 16:29 WBC RBC Hgb Hct MCV MCH RDW Plt Count Lymph % (Auto) [place] % (Auto) Eos % (Auto) [place] # Seg Neutrophils % Seg Neuts % (Manual) Lymphocytes % (Manual) Seg Neutrophils # Seg Neutrophils # Man Lymphocytes # (Manual) APTT POC ABG pH ABG pH POC ABG pCO2 POC ABG pO2 ABG pO2 ABG HCO3 ABG Base Excess ABG Hemoglobin VBG pH Oxyhemoglobin Sodium Potassium Chloride Carbon Dioxide BUN Creatinine Glucose POC Glucose 248 H 241 H 257 H Lactic Acid Calcium AST ALT Alkaline Phosphatase CK-MB (CK-2) CK-MB (CK-2) Rel Index Total Protein Albumin TSH Urine WBC (Auto) Salicylates 02/05/17 02/06/17 02/06/17 23:56 05:30 11:50 WBC RBC Hgb Hct MCV MCH RDW Plt Count Lymph % (Auto) [place] % (Auto) Eos % (Auto) [place] # Seg Neutrophils % Seg Neuts % (Manual) Lymphocytes % (Manual) Seg Neutrophils # Seg Neutrophils # Man Lymphocytes # (Manual) APTT POC ABG pH ABG pH POC ABG pCO2 POC ABG pO2 ABG pO2 ABG HCO3 ABG Base Excess ABG Hemoglobin VBG pH Oxyhemoglobin Sodium Potassium Chloride Carbon Dioxide BUN Creatinine Glucose POC Glucose 258 H 120 H 254 H Lactic Acid Calcium AST ALT Alkaline Phosphatase CK-MB (CK-2) CK-MB (CK-2) Rel Index Total Protein Albumin TSH Urine WBC (Auto) Salicylates 02/06/17 02/06/17 02/07/17 17:11 23:50 05:22 WBC RBC Hgb Hct MCV MCH RDW Plt Count Lymph % (Auto) [place] % (Auto) Eos % (Auto) [place] # Seg Neutrophils % Seg Neuts % (Manual) Lymphocytes % (Manual) Seg Neutrophils # Seg Neutrophils # Man Lymphocytes # (Manual) APTT POC ABG pH ABG pH POC ABG pCO2 POC ABG pO2 ABG pO2 ABG HCO3 ABG Base Excess ABG Hemoglobin VBG pH Oxyhemoglobin Sodium Potassium Chloride Carbon Dioxide BUN Creatinine Glucose POC Glucose 149 H 240 H 258 H Lactic Acid Calcium AST ALT Alkaline Phosphatase CK-MB (CK-2) CK-MB (CK-2) Rel Index Total Protein Albumin TSH Urine WBC (Auto) Salicylates 02/07/17 02/07/17 02/07/17 11:15 18:33 23:59 WBC RBC Hgb Hct MCV MCH RDW Plt Count Lymph % (Auto) [place] % (Auto) Eos % (Auto) [place] # Seg Neutrophils % Seg Neuts % (Manual) Lymphocytes % (Manual) Seg Neutrophils # Seg Neutrophils # Man Lymphocytes # (Manual) APTT POC ABG pH ABG pH POC ABG pCO2 POC ABG pO2 ABG pO2 ABG HCO3 ABG Base Excess ABG Hemoglobin VBG pH Oxyhemoglobin Sodium Potassium Chloride Carbon Dioxide BUN Creatinine Glucose POC Glucose 239 H 176 H 186 H Lactic Acid Calcium AST ALT Alkaline Phosphatase CK-MB (CK-2) CK-MB (CK-2) Rel Index Total Protein Albumin TSH Urine WBC (Auto) Salicylates 02/08/17 02/08/17 02/08/17 06:15 11:55 16:55 WBC RBC Hgb Hct MCV MCH RDW Plt Count Lymph % (Auto) [place] % (Auto) Eos % (Auto) [place] # Seg Neutrophils % Seg Neuts % (Manual) Lymphocytes % (Manual) Seg Neutrophils # Seg Neutrophils # Man Lymphocytes # (Manual) APTT POC ABG pH ABG pH POC ABG pCO2 POC ABG pO2 ABG pO2 ABG HCO3 ABG Base Excess ABG Hemoglobin VBG pH Oxyhemoglobin Sodium Potassium Chloride Carbon Dioxide BUN Creatinine Glucose POC Glucose 195 H 129 H 246 H Lactic Acid Calcium AST ALT Alkaline Phosphatase CK-MB (CK-2) CK-MB (CK-2) Rel Index Total Protein Albumin TSH Urine WBC (Auto) Salicylates 02/08/17 02/09/17 02/09/17 23:51 05:51 07:24 WBC 14.7 H RBC 3.39 L Hgb 8.9 L Hct 26.4 L MCV 78 L MCH 26 L RDW 18.4 H Plt Count 670 H Lymph % (Auto) 11.8 L [place] % (Auto) Eos % (Auto) [place] # Seg Neutrophils % 81.2 H Seg Neuts % (Manual) Lymphocytes % (Manual) Seg Neutrophils # 11.9 H Seg Neutrophils # Man Lymphocytes # (Manual) APTT POC ABG pH ABG pH POC ABG pCO2 POC ABG pO2 ABG pO2 ABG HCO3 ABG Base Excess ABG Hemoglobin VBG pH Oxyhemoglobin Sodium Potassium Chloride Carbon Dioxide BUN Creatinine Glucose POC Glucose 262 H 295 H Lactic Acid Calcium AST ALT Alkaline Phosphatase CK-MB (CK-2) CK-MB (CK-2) Rel Index Total Protein Albumin TSH Urine WBC (Auto) Salicylates 02/09/17 02/09/17 02/09/17 07:24 12:08 18:39 WBC RBC Hgb Hct MCV MCH RDW Plt Count Lymph % (Auto) [place] % (Auto) Eos % (Auto) [place] # Seg Neutrophils % Seg Neuts % (Manual) Lymphocytes % (Manual) Seg Neutrophils # Seg Neutrophils # Man Lymphocytes # (Manual) APTT POC ABG pH ABG pH POC ABG pCO2 POC ABG pO2 ABG pO2 ABG HCO3 ABG Base Excess ABG Hemoglobin VBG pH Oxyhemoglobin Sodium Potassium Chloride 95.5 L Carbon Dioxide BUN 52 H Creatinine Glucose 277 H POC Glucose 236 H 151 H Lactic Acid Calcium AST ALT Alkaline Phosphatase CK-MB (CK-2) CK-MB (CK-2) Rel Index Total Protein Albumin TSH Urine WBC (Auto) Salicylates 02/10/17 02/10/17 02/10/17 00:01 05:44 11:21 WBC RBC Hgb Hct MCV MCH RDW Plt Count Lymph % (Auto) [place] % (Auto) Eos % (Auto) [place] # Seg Neutrophils % Seg Neuts % (Manual) Lymphocytes % (Manual) Seg Neutrophils # Seg Neutrophils # Man Lymphocytes # (Manual) APTT POC ABG pH ABG pH POC ABG pCO2 POC ABG pO2 ABG pO2 ABG HCO3 ABG Base Excess ABG Hemoglobin VBG pH Oxyhemoglobin Sodium Potassium Chloride Carbon Dioxide BUN Creatinine Glucose POC Glucose 210 H 201 H 233 H Lactic Acid Calcium AST ALT Alkaline Phosphatase CK-MB (CK-2) CK-MB (CK-2) Rel Index Total Protein Albumin TSH Urine WBC (Auto) Salicylates 02/10/17 02/10/17 02/11/17 17:29 23:56 05:24 WBC RBC Hgb Hct MCV MCH RDW Plt Count Lymph % (Auto) [place] % (Auto) Eos % (Auto) [place] # Seg Neutrophils % Seg Neuts % (Manual) Lymphocytes % (Manual) Seg Neutrophils # Seg Neutrophils # Man Lymphocytes # (Manual) APTT POC ABG pH ABG pH POC ABG pCO2 POC ABG pO2 ABG pO2 ABG HCO3 ABG Base Excess ABG Hemoglobin VBG pH Oxyhemoglobin Sodium Potassium Chloride Carbon Dioxide BUN Creatinine Glucose POC Glucose 167 H 191 H 135 H Lactic Acid Calcium AST ALT Alkaline Phosphatase CK-MB (CK-2) CK-MB (CK-2) Rel Index Total Protein Albumin TSH Urine WBC (Auto) Salicylates 02/11/17 02/11/17 02/11/17 12:25 17:03 23:59 WBC RBC Hgb Hct MCV MCH RDW Plt Count Lymph % (Auto) [place] % (Auto) Eos % (Auto) [place] # Seg Neutrophils % Seg Neuts % (Manual) Lymphocytes % (Manual) Seg Neutrophils # Seg Neutrophils # Man Lymphocytes # (Manual) APTT POC ABG pH ABG pH POC ABG pCO2 POC ABG pO2 ABG pO2 ABG HCO3 ABG Base Excess ABG Hemoglobin VBG pH Oxyhemoglobin Sodium Potassium Chloride Carbon Dioxide BUN Creatinine Glucose POC Glucose 275 H 172 H 215 H Lactic Acid Calcium AST ALT Alkaline Phosphatase CK-MB (CK-2) CK-MB (CK-2) Rel Index Total Protein Albumin TSH Urine WBC (Auto) Salicylates 02/12/17 02/12/17 02/12/17 05:39 11:33 17:55 WBC RBC Hgb Hct MCV MCH RDW Plt Count Lymph % (Auto) [place] % (Auto) Eos % (Auto) [place] # Seg Neutrophils % Seg Neuts % (Manual) Lymphocytes % (Manual) Seg Neutrophils # Seg Neutrophils # Man Lymphocytes # (Manual) APTT POC ABG pH ABG pH POC ABG pCO2 POC ABG pO2 ABG pO2 ABG HCO3 ABG Base Excess ABG Hemoglobin VBG pH Oxyhemoglobin Sodium Potassium Chloride Carbon Dioxide BUN Creatinine Glucose POC Glucose 261 H 217 H 172 H Lactic Acid Calcium AST ALT Alkaline Phosphatase CK-MB (CK-2) CK-MB (CK-2) Rel Index Total Protein Albumin TSH Urine WBC (Auto) Salicylates 02/13/17 02/13/17 02/13/17 00:25 06:46 11:26 WBC RBC Hgb Hct MCV MCH RDW Plt Count Lymph % (Auto) [place] % (Auto) Eos % (Auto) [place] # Seg Neutrophils % Seg Neuts % (Manual) Lymphocytes % (Manual) Seg Neutrophils # Seg Neutrophils # Man Lymphocytes # (Manual) APTT POC ABG pH ABG pH POC ABG pCO2 POC ABG pO2 ABG pO2 ABG HCO3 ABG Base Excess ABG Hemoglobin VBG pH Oxyhemoglobin Sodium Potassium Chloride Carbon Dioxide BUN Creatinine Glucose POC Glucose 207 H 219 H 231 H Lactic Acid Calcium AST ALT Alkaline Phosphatase CK-MB (CK-2) CK-MB (CK-2) Rel Index Total Protein Albumin TSH Urine WBC (Auto) Salicylates 02/13/17 02/13/17 02/14/17 17:12 23:44 05:44 WBC RBC Hgb Hct MCV MCH RDW Plt Count Lymph % (Auto) [place] % (Auto) Eos % (Auto) [place] # Seg Neutrophils % Seg Neuts % (Manual) Lymphocytes % (Manual) Seg Neutrophils # Seg Neutrophils # Man Lymphocytes # (Manual) APTT POC ABG pH ABG pH POC ABG pCO2 POC ABG pO2 ABG pO2 ABG HCO3 ABG Base Excess ABG Hemoglobin VBG pH Oxyhemoglobin Sodium Potassium Chloride Carbon Dioxide BUN Creatinine Glucose POC Glucose 190 H 256 H 184 H Lactic Acid Calcium AST ALT Alkaline Phosphatase CK-MB (CK-2) CK-MB (CK-2) Rel Index Total Protein Albumin TSH Urine WBC (Auto) Salicylates 02/14/17 02/14/17 02/14/17 12:21 17:57 23:18 WBC RBC Hgb Hct MCV MCH RDW Plt Count Lymph % (Auto) [place] % (Auto) Eos % (Auto) [place] # Seg Neutrophils % Seg Neuts % (Manual) Lymphocytes % (Manual) Seg Neutrophils # Seg Neutrophils # Man Lymphocytes # (Manual) APTT POC ABG pH ABG pH POC ABG pCO2 POC ABG pO2 ABG pO2 ABG HCO3 ABG Base Excess ABG Hemoglobin VBG pH Oxyhemoglobin Sodium Potassium Chloride Carbon Dioxide BUN Creatinine Glucose POC Glucose 233 H 155 H 165 H Lactic Acid Calcium AST ALT Alkaline Phosphatase CK-MB (CK-2) CK-MB (CK-2) Rel Index Total Protein Albumin TSH Urine WBC (Auto) Salicylates 02/15/17 02/15/17 02/15/17 05:33 11:45 17:20 WBC RBC Hgb Hct MCV MCH RDW Plt Count Lymph % (Auto) [place] % (Auto) Eos % (Auto) [place] # Seg Neutrophils % Seg Neuts % (Manual) Lymphocytes % (Manual) Seg Neutrophils # Seg Neutrophils # Man Lymphocytes # (Manual) APTT POC ABG pH ABG pH POC ABG pCO2 POC ABG pO2 ABG pO2 ABG HCO3 ABG Base Excess ABG Hemoglobin VBG pH Oxyhemoglobin Sodium Potassium Chloride Carbon Dioxide BUN Creatinine Glucose POC Glucose 239 H 130 H 189 H Lactic Acid Calcium AST ALT Alkaline Phosphatase CK-MB (CK-2) CK-MB (CK-2) Rel Index Total Protein Albumin TSH Urine WBC (Auto) Salicylates 02/16/17 02/16/17 02/16/17 00:14 05:09 12:31 WBC RBC Hgb Hct MCV MCH RDW Plt Count Lymph % (Auto) [place] % (Auto) Eos % (Auto) [place] # Seg Neutrophils % Seg Neuts % (Manual) Lymphocytes % (Manual) Seg Neutrophils # Seg Neutrophils # Man Lymphocytes # (Manual) APTT POC ABG pH ABG pH POC ABG pCO2 POC ABG pO2 ABG pO2 ABG HCO3 ABG Base Excess ABG Hemoglobin VBG pH Oxyhemoglobin Sodium Potassium Chloride Carbon Dioxide BUN Creatinine Glucose POC Glucose 197 H 226 H 178 H Lactic Acid Calcium AST ALT Alkaline Phosphatase CK-MB (CK-2) CK-MB (CK-2) Rel Index Total Protein Albumin TSH Urine WBC (Auto) Salicylates 02/16/17 02/16/17 02/17/17 16:35 23:49 05:37 WBC RBC Hgb Hct MCV MCH RDW Plt Count Lymph % (Auto) [place] % (Auto) Eos % (Auto) [place] # Seg Neutrophils % Seg Neuts % (Manual) Lymphocytes % (Manual) Seg Neutrophils # Seg Neutrophils # Man Lymphocytes # (Manual) APTT POC ABG pH ABG pH POC ABG pCO2 POC ABG pO2 ABG pO2 ABG HCO3 ABG Base Excess ABG Hemoglobin VBG pH Oxyhemoglobin Sodium Potassium Chloride Carbon Dioxide BUN Creatinine Glucose POC Glucose 174 H 62 L 153 H Lactic Acid Calcium AST ALT Alkaline Phosphatase CK-MB (CK-2) CK-MB (CK-2) Rel Index Total Protein Albumin TSH Urine WBC (Auto) Salicylates 02/17/17 02/17/17 02/17/17 11:39 17:02 22:24 WBC RBC Hgb Hct MCV MCH RDW Plt Count Lymph % (Auto) [place] % (Auto) Eos % (Auto) [place] # Seg Neutrophils % Seg Neuts % (Manual) Lymphocytes % (Manual) Seg Neutrophils # Seg Neutrophils # Man Lymphocytes # (Manual) APTT POC ABG pH ABG pH POC ABG pCO2 POC ABG pO2 ABG pO2 ABG HCO3 ABG Base Excess ABG Hemoglobin VBG pH Oxyhemoglobin Sodium Potassium Chloride Carbon Dioxide BUN Creatinine Glucose POC Glucose 231 H 112 H 116 H Lactic Acid Calcium AST ALT Alkaline Phosphatase CK-MB (CK-2) CK-MB (CK-2) Rel Index Total Protein Albumin TSH Urine WBC (Auto) Salicylates 02/18/17 02/19/17 02/19/17 15:34 05:09 07:57 WBC RBC Hgb Hct MCV MCH RDW Plt Count Lymph % (Auto) [place] % (Auto) Eos % (Auto) [place] # Seg Neutrophils % Seg Neuts % (Manual) Lymphocytes % (Manual) Seg Neutrophils # Seg Neutrophils # Man Lymphocytes # (Manual) APTT POC ABG pH ABG pH POC ABG pCO2 POC ABG pO2 ABG pO2 ABG HCO3 ABG Base Excess ABG Hemoglobin VBG pH Oxyhemoglobin Sodium Potassium Chloride Carbon Dioxide BUN Creatinine Glucose POC Glucose 215 H 218 H 283 H Lactic Acid Calcium AST ALT Alkaline Phosphatase CK-MB (CK-2) CK-MB (CK-2) Rel Index Total Protein Albumin TSH Urine WBC (Auto) Salicylates 02/19/17 02/19/17 02/20/17 14:49 22:10 05:10 WBC RBC Hgb Hct MCV MCH RDW Plt Count Lymph % (Auto) [place] % (Auto) Eos % (Auto) [place] # Seg Neutrophils % Seg Neuts % (Manual) Lymphocytes % (Manual) Seg Neutrophils # Seg Neutrophils # Man Lymphocytes # (Manual) APTT POC ABG pH ABG pH POC ABG pCO2 POC ABG pO2 ABG pO2 ABG HCO3 ABG Base Excess ABG Hemoglobin VBG pH Oxyhemoglobin Sodium Potassium Chloride Carbon Dioxide BUN Creatinine Glucose POC Glucose 290 H 169 H 209 H Lactic Acid Calcium AST ALT Alkaline Phosphatase CK-MB (CK-2) CK-MB (CK-2) Rel Index Total Protein Albumin TSH Urine WBC (Auto) Salicylates 02/20/17 02/20/17 02/21/17 15:05 21:52 02:00 WBC RBC Hgb Hct MCV MCH RDW Plt Count Lymph % (Auto) [place] % (Auto) Eos % (Auto) [place] # Seg Neutrophils % Seg Neuts % (Manual) Lymphocytes % (Manual) Seg Neutrophils # Seg Neutrophils # Man Lymphocytes # (Manual) APTT POC ABG pH ABG pH POC ABG pCO2 POC ABG pO2 ABG pO2 ABG HCO3 ABG Base Excess ABG Hemoglobin VBG pH Oxyhemoglobin Sodium Potassium Chloride Carbon Dioxide BUN Creatinine Glucose POC Glucose 172 H 209 H 216 H Lactic Acid Calcium AST ALT Alkaline Phosphatase CK-MB (CK-2) CK-MB (CK-2) Rel Index Total Protein Albumin TSH Urine WBC (Auto) Salicylates 02/21/17 02/21/17 02/21/17 04:54 14:43 17:47 WBC RBC Hgb Hct MCV MCH RDW Plt Count Lymph % (Auto) [place] % (Auto) Eos % (Auto) [place] # Seg Neutrophils % Seg Neuts % (Manual) Lymphocytes % (Manual) Seg Neutrophils # Seg Neutrophils # Man Lymphocytes # (Manual) APTT POC ABG pH ABG pH POC ABG pCO2 POC ABG pO2 ABG pO2 ABG HCO3 ABG Base Excess ABG Hemoglobin VBG pH Oxyhemoglobin Sodium Potassium Chloride Carbon Dioxide BUN Creatinine Glucose POC Glucose 227 H 290 H 220 H Lactic Acid Calcium AST ALT Alkaline Phosphatase CK-MB (CK-2) CK-MB (CK-2) Rel Index Total Protein Albumin TSH Urine WBC (Auto) Salicylates 02/21/17 02/22/17 02/22/17 22:02 04:52 15:25 WBC RBC Hgb Hct MCV MCH RDW Plt Count Lymph % (Auto) [place] % (Auto) Eos % (Auto) [place] # Seg Neutrophils % Seg Neuts % (Manual) Lymphocytes % (Manual) Seg Neutrophils # Seg Neutrophils # Man Lymphocytes # (Manual) APTT POC ABG pH ABG pH POC ABG pCO2 POC ABG pO2 ABG pO2 ABG HCO3 ABG Base Excess ABG Hemoglobin VBG pH Oxyhemoglobin Sodium Potassium Chloride Carbon Dioxide BUN Creatinine Glucose POC Glucose 246 H 212 H 236 H Lactic Acid Calcium AST ALT Alkaline Phosphatase CK-MB (CK-2) CK-MB (CK-2) Rel Index Total Protein Albumin TSH Urine WBC (Auto) Salicylates 02/22/17 02/23/17 02/23/17 21:33 06:04 10:00 WBC RBC Hgb Hct MCV MCH RDW Plt Count Lymph % (Auto) [place] % (Auto) Eos % (Auto) [place] # Seg Neutrophils % Seg Neuts % (Manual) Lymphocytes % (Manual) Seg Neutrophils # Seg Neutrophils # Man Lymphocytes # (Manual) APTT POC ABG pH ABG pH POC ABG pCO2 POC ABG pO2 ABG pO2 ABG HCO3 ABG Base Excess ABG Hemoglobin VBG pH Oxyhemoglobin Sodium Potassium Chloride Carbon Dioxide BUN Creatinine Glucose POC Glucose 255 H 208 H 174 H Lactic Acid Calcium AST ALT Alkaline Phosphatase CK-MB (CK-2) CK-MB (CK-2) Rel Index Total Protein Albumin TSH Urine WBC (Auto) Salicylates 02/23/17 02/23/17 02/23/17 12:52 17:15 21:51 WBC RBC Hgb Hct MCV MCH RDW Plt Count Lymph % (Auto) [place] % (Auto) Eos % (Auto) [place] # Seg Neutrophils % Seg Neuts % (Manual) Lymphocytes % (Manual) Seg Neutrophils # Seg Neutrophils # Man Lymphocytes # (Manual) APTT POC ABG pH ABG pH POC ABG pCO2 POC ABG pO2 ABG pO2 ABG HCO3 ABG Base Excess ABG Hemoglobin VBG pH Oxyhemoglobin Sodium Potassium Chloride Carbon Dioxide BUN Creatinine Glucose POC Glucose 203 H 269 H 205 H Lactic Acid Calcium AST ALT Alkaline Phosphatase CK-MB (CK-2) CK-MB (CK-2) Rel Index Total Protein Albumin TSH Urine WBC (Auto) Salicylates 02/24/17 02/24/17 02/24/17 10:23 17:45 21:24 WBC RBC Hgb Hct MCV MCH RDW Plt Count Lymph % (Auto) [place] % (Auto) Eos % (Auto) [place] # Seg Neutrophils % Seg Neuts % (Manual) Lymphocytes % (Manual) Seg Neutrophils # Seg Neutrophils # Man Lymphocytes # (Manual) APTT POC ABG pH ABG pH POC ABG pCO2 POC ABG pO2 ABG pO2 ABG HCO3 ABG Base Excess ABG Hemoglobin VBG pH Oxyhemoglobin Sodium Potassium Chloride Carbon Dioxide BUN Creatinine Glucose POC Glucose 280 H 239 H 254 H Lactic Acid Calcium AST ALT Alkaline Phosphatase CK-MB (CK-2) CK-MB (CK-2) Rel Index Total Protein Albumin TSH Urine WBC (Auto) Salicylates 02/25/17 02/25/17 02/25/17 02:12 05:17 14:32 WBC RBC Hgb Hct MCV MCH RDW Plt Count Lymph % (Auto) [place] % (Auto) Eos % (Auto) [place] # Seg Neutrophils % Seg Neuts % (Manual) Lymphocytes % (Manual) Seg Neutrophils # Seg Neutrophils # Man Lymphocytes # (Manual) APTT POC ABG pH ABG pH POC ABG pCO2 POC ABG pO2 ABG pO2 ABG HCO3 ABG Base Excess ABG Hemoglobin VBG pH Oxyhemoglobin Sodium Potassium Chloride Carbon Dioxide BUN Creatinine Glucose POC Glucose 296 H 332 H 353 H Lactic Acid Calcium AST ALT Alkaline Phosphatase CK-MB (CK-2) CK-MB (CK-2) Rel Index Total Protein Albumin TSH Urine WBC (Auto) Salicylates 02/25/17 02/26/1717 22:14 00:37 05:52 WBC RBC Hgb Hct MCV MCH RDW Plt Count Lymph % (Auto) [place] % (Auto) Eos % (Auto) [place] # Seg Neutrophils % Seg Neuts % (Manual) Lymphocytes % (Manual) Seg Neutrophils # Seg Neutrophils # Man Lymphocytes # (Manual) APTT POC ABG pH ABG pH POC ABG pCO2 POC ABG pO2 ABG pO2 ABG HCO3 ABG Base Excess ABG Hemoglobin VBG pH Oxyhemoglobin Sodium Potassium Chloride Carbon Dioxide BUN Creatinine Glucose POC Glucose 201 H 233 H 269 H Lactic Acid Calcium AST ALT Alkaline Phosphatase CK-MB (CK-2) CK-MB (CK-2) Rel Index Total Protein Albumin TSH Urine WBC (Auto) Salicylates 02/26/17 02/26/17 02/26/17 11:48 13:49 21:26 WBC RBC Hgb Hct MCV MCH RDW Plt Count Lymph % (Auto) [place] % (Auto) Eos % (Auto) [place] # Seg Neutrophils % Seg Neuts % (Manual) Lymphocytes % (Manual) Seg Neutrophils # Seg Neutrophils # Man Lymphocytes # (Manual) APTT POC ABG pH ABG pH POC ABG pCO2 POC ABG pO2 ABG pO2 ABG HCO3 ABG Base Excess ABG Hemoglobin VBG pH Oxyhemoglobin Sodium Potassium Chloride Carbon Dioxide BUN Creatinine Glucose POC Glucose 333 H 322 H 244 H Lactic Acid Calcium AST ALT Alkaline Phosphatase CK-MB (CK-2) CK-MB (CK-2) Rel Index Total Protein Albumin TSH Urine WBC (Auto) Salicylates 02/27/17 02/27/17 02/27/17 05:27 13:51 21:48 WBC RBC Hgb Hct MCV MCH RDW Plt Count Lymph % (Auto) [place] % (Auto) Eos % (Auto) [place] # Seg Neutrophils % Seg Neuts % (Manual) Lymphocytes % (Manual) Seg Neutrophils # Seg Neutrophils # Man Lymphocytes # (Manual) APTT POC ABG pH ABG pH POC ABG pCO2 POC ABG pO2 ABG pO2 ABG HCO3 ABG Base Excess ABG Hemoglobin VBG pH Oxyhemoglobin Sodium Potassium Chloride Carbon Dioxide BUN Creatinine Glucose POC Glucose 217 H 239 H 254 H Lactic Acid Calcium AST ALT Alkaline Phosphatase CK-MB (CK-2) CK-MB (CK-2) Rel Index Total Protein Albumin TSH Urine WBC (Auto) Salicylates 02/28/17 02/28/17 02/28/17 05:38 11:00 19:44 WBC RBC Hgb Hct MCV MCH RDW Plt Count Lymph % (Auto) [place] % (Auto) Eos % (Auto) [place] # Seg Neutrophils % Seg Neuts % (Manual) Lymphocytes % (Manual) Seg Neutrophils # Seg Neutrophils # Man Lymphocytes # (Manual) APTT POC ABG pH ABG pH POC ABG pCO2 POC ABG pO2 ABG pO2 ABG HCO3 ABG Base Excess ABG Hemoglobin VBG pH Oxyhemoglobin Sodium Potassium Chloride Carbon Dioxide BUN Creatinine Glucose POC Glucose 325 H 203 H 116 H Lactic Acid Calcium AST ALT Alkaline Phosphatase CK-MB (CK-2) CK-MB (CK-2) Rel Index Total Protein Albumin TSH Urine WBC (Auto) Salicylates 03/01/17 03/01/17 03/01/17 00:08 05:31 12:17 WBC RBC Hgb Hct MCV MCH RDW Plt Count Lymph % (Auto) [place] % (Auto) Eos % (Auto) [place] # Seg Neutrophils % Seg Neuts % (Manual) Lymphocytes % (Manual) Seg Neutrophils # Seg Neutrophils # Man Lymphocytes # (Manual) APTT POC ABG pH ABG pH POC ABG pCO2 POC ABG pO2 ABG pO2 ABG HCO3 ABG Base Excess ABG Hemoglobin VBG pH Oxyhemoglobin Sodium Potassium Chloride Carbon Dioxide BUN Creatinine Glucose POC Glucose 202 H 183 H 184 H Lactic Acid Calcium AST ALT Alkaline Phosphatase CK-MB (CK-2) CK-MB (CK-2) Rel Index Total Protein Albumin TSH Urine WBC (Auto) Salicylates 03/02/17 03/02/17 03/02/17 00:12 05:58 18:22 WBC RBC Hgb Hct MCV MCH RDW Plt Count Lymph % (Auto) [place] % (Auto) Eos % (Auto) [place] # Seg Neutrophils % Seg Neuts % (Manual) Lymphocytes % (Manual) Seg Neutrophils # Seg Neutrophils # Man Lymphocytes # (Manual) APTT POC ABG pH ABG pH POC ABG pCO2 POC ABG pO2 ABG pO2 ABG HCO3 ABG Base Excess ABG Hemoglobin VBG pH Oxyhemoglobin Sodium Potassium Chloride Carbon Dioxide BUN Creatinine Glucose POC Glucose 117 H 176 H 156 H Lactic Acid Calcium AST ALT Alkaline Phosphatase CK-MB (CK-2) CK-MB (CK-2) Rel Index Total Protein Albumin TSH Urine WBC (Auto) Salicylates 03/02/17 03/03/17 03/03/17 23:51 05:44 11:32 WBC RBC Hgb Hct MCV MCH RDW Plt Count Lymph % (Auto) [place] % (Auto) Eos % (Auto) [place] # Seg Neutrophils % Seg Neuts % (Manual) Lymphocytes % (Manual) Seg Neutrophils # Seg Neutrophils # Man Lymphocytes # (Manual) APTT POC ABG pH ABG pH POC ABG pCO2 POC ABG pO2 ABG pO2 ABG HCO3 ABG Base Excess ABG Hemoglobin VBG pH Oxyhemoglobin Sodium Potassium Chloride Carbon Dioxide BUN Creatinine Glucose POC Glucose 211 H 117 H 133 H Lactic Acid Calcium AST ALT Alkaline Phosphatase CK-MB (CK-2) CK-MB (CK-2) Rel Index Total Protein Albumin TSH Urine WBC (Auto) Salicylates 03/03/17 03/03/17 03/04/17 17:43 23:17 05:30 WBC RBC Hgb Hct MCV MCH RDW Plt Count Lymph % (Auto) [place] % (Auto) Eos % (Auto) [place] # Seg Neutrophils % Seg Neuts % (Manual) Lymphocytes % (Manual) Seg Neutrophils # Seg Neutrophils # Man Lymphocytes # (Manual) APTT POC ABG pH ABG pH POC ABG pCO2 POC ABG pO2 ABG pO2 ABG HCO3 ABG Base Excess ABG Hemoglobin VBG pH Oxyhemoglobin Sodium Potassium Chloride Carbon Dioxide BUN Creatinine Glucose POC Glucose 206 H 170 H 126 H Lactic Acid Calcium AST ALT Alkaline Phosphatase CK-MB (CK-2) CK-MB (CK-2) Rel Index Total Protein Albumin TSH Urine WBC (Auto) Salicylates 03/04/17 03/04/17 03/05/17 12:17 17:27 05:20 WBC RBC Hgb Hct MCV MCH RDW Plt Count Lymph % (Auto) [place] % (Auto) Eos % (Auto) [place] # Seg Neutrophils % Seg Neuts % (Manual) Lymphocytes % (Manual) Seg Neutrophils # Seg Neutrophils # Man Lymphocytes # (Manual) APTT POC ABG pH ABG pH POC ABG pCO2 POC ABG pO2 ABG pO2 ABG HCO3 ABG Base Excess ABG Hemoglobin VBG pH Oxyhemoglobin Sodium Potassium Chloride Carbon Dioxide BUN Creatinine Glucose POC Glucose 135 H 121 H 185 H Lactic Acid Calcium AST ALT Alkaline Phosphatase CK-MB (CK-2) CK-MB (CK-2) Rel Index Total Protein Albumin TSH Urine WBC (Auto) Salicylates 03/05/17 03/06/17 03/06/17 11:50 11:52 17:34 WBC RBC Hgb Hct MCV MCH RDW Plt Count Lymph % (Auto) [place] % (Auto) Eos % (Auto) [place] # Seg Neutrophils % Seg Neuts % (Manual) Lymphocytes % (Manual) Seg Neutrophils # Seg Neutrophils # Man Lymphocytes # (Manual) APTT POC ABG pH ABG pH POC ABG pCO2 POC ABG pO2 ABG pO2 ABG HCO3 ABG Base Excess ABG Hemoglobin VBG pH Oxyhemoglobin Sodium Potassium Chloride Carbon Dioxide BUN Creatinine Glucose POC Glucose 116 H 133 H 181 H Lactic Acid Calcium AST ALT Alkaline Phosphatase CK-MB (CK-2) CK-MB (CK-2) Rel Index Total Protein Albumin TSH Urine WBC (Auto) Salicylates 03/07/17 03/07/17 03/07/17 05:21 11:36 17:49 WBC RBC Hgb Hct MCV MCH RDW Plt Count Lymph % (Auto) [place] % (Auto) Eos % (Auto) [place] # Seg Neutrophils % Seg Neuts % (Manual) Lymphocytes % (Manual) Seg Neutrophils # Seg Neutrophils # Man Lymphocytes # (Manual) APTT POC ABG pH ABG pH POC ABG pCO2 POC ABG pO2 ABG pO2 ABG HCO3 ABG Base Excess ABG Hemoglobin VBG pH Oxyhemoglobin Sodium Potassium Chloride Carbon Dioxide BUN Creatinine Glucose POC Glucose 159 H 137 H 158 H Lactic Acid Calcium AST ALT Alkaline Phosphatase CK-MB (CK-2) CK-MB (CK-2) Rel Index Total Protein Albumin TSH Urine WBC (Auto) Salicylates 03/08/17 03/08/17 03/08/17 05:51 13:58 23:50 WBC RBC Hgb Hct MCV MCH RDW Plt Count Lymph % (Auto) [place] % (Auto) Eos % (Auto) [place] # Seg Neutrophils % Seg Neuts % (Manual) Lymphocytes % (Manual) Seg Neutrophils # Seg Neutrophils # Man Lymphocytes # (Manual) APTT POC ABG pH ABG pH POC ABG pCO2 POC ABG pO2 ABG pO2 ABG HCO3 ABG Base Excess ABG Hemoglobin VBG pH Oxyhemoglobin Sodium Potassium Chloride Carbon Dioxide BUN Creatinine Glucose POC Glucose 122 H 182 H 114 H Lactic Acid Calcium AST ALT Alkaline Phosphatase CK-MB (CK-2) CK-MB (CK-2) Rel Index Total Protein Albumin TSH Urine WBC (Auto) Salicylates 03/09/17 03/09/17 03/09/17 05:21 05:51 05:51 WBC RBC 3.61 L Hgb 9.5 L Hct 28.3 L MCV 79 L MCH 26 L RDW 17.8 H Plt Count Lymph % (Auto) [place] % (Auto) Eos % (Auto) [place] # Seg Neutrophils % Seg Neuts % (Manual) Lymphocytes % (Manual) Seg Neutrophils # Seg Neutrophils # Man Lymphocytes # (Manual) APTT POC ABG pH ABG pH POC ABG pCO2 POC ABG pO2 ABG pO2 ABG HCO3 ABG Base Excess ABG Hemoglobin VBG pH Oxyhemoglobin Sodium 134 L Potassium Chloride 95.5 L Carbon Dioxide BUN 33 H Creatinine 0.5 L Glucose 143 H POC Glucose 153 H Lactic Acid Calcium AST ALT Alkaline Phosphatase CK-MB (CK-2) CK-MB (CK-2) Rel Index Total Protein Albumin TSH Urine WBC (Auto) Salicylates 03/09/17 03/09/17 03/09/17 12:10 18:13 21:00 WBC RBC Hgb Hct MCV MCH RDW Plt Count Lymph % (Auto) [place] % (Auto) Eos % (Auto) [place] # Seg Neutrophils % Seg Neuts % (Manual) Lymphocytes % (Manual) Seg Neutrophils # Seg Neutrophils # Man Lymphocytes # (Manual) APTT POC ABG pH ABG pH POC ABG pCO2 POC ABG pO2 ABG pO2 ABG HCO3 ABG Base Excess ABG Hemoglobin VBG pH Oxyhemoglobin Sodium Potassium Chloride Carbon Dioxide BUN Creatinine Glucose POC Glucose 203 H 221 H 198 H Lactic Acid Calcium AST ALT Alkaline Phosphatase CK-MB (CK-2) CK-MB (CK-2) Rel Index Total Protein Albumin TSH Urine WBC (Auto) Salicylates 03/09/17 03/10/17 03/10/17 23:58 05:09 05:09 WBC RBC Hgb 10.3 L Hct 30.5 L MCV 78 L MCH 26 L RDW 17.9 H Plt Count Lymph % (Auto) [place] % (Auto) 10.0 H Eos % (Auto) 6.0 H [place] # Seg Neutrophils % Seg Neuts % (Manual) Lymphocytes % (Manual) Seg Neutrophils # Seg Neutrophils # Man Lymphocytes # (Manual) APTT POC ABG pH ABG pH POC ABG pCO2 POC ABG pO2 ABG pO2 ABG HCO3 ABG Base Excess ABG Hemoglobin VBG pH Oxyhemoglobin Sodium 132 L Potassium Chloride 92.2 L Carbon Dioxide BUN 33 H Creatinine 0.5 L Glucose 50 L POC Glucose 167 H Lactic Acid Calcium AST ALT Alkaline Phosphatase CK-MB (CK-2) CK-MB (CK-2) Rel Index Total Protein Albumin TSH Urine WBC (Auto) Salicylates 03/10/17 03/10/17 03/10/17 05:33 05:34 11:48 WBC RBC Hgb Hct MCV MCH RDW Plt Count Lymph % (Auto) [place] % (Auto) Eos % (Auto) [place] # Seg Neutrophils % Seg Neuts % (Manual) Lymphocytes % (Manual) Seg Neutrophils # Seg Neutrophils # Man Lymphocytes # (Manual) APTT POC ABG pH ABG pH POC ABG pCO2 POC ABG pO2 ABG pO2 ABG HCO3 ABG Base Excess ABG Hemoglobin VBG pH Oxyhemoglobin Sodium Potassium Chloride Carbon Dioxide BUN Creatinine Glucose POC Glucose 52 L 53 L 148 H Lactic Acid Calcium AST ALT Alkaline Phosphatase CK-MB (CK-2) CK-MB (CK-2) Rel Index Total Protein Albumin TSH Urine WBC (Auto) Salicylates 03/10/17 03/10/17 03/11/17 17:53 23:47 05:18 WBC RBC Hgb Hct MCV MCH RDW Plt Count Lymph % (Auto) [place] % (Auto) Eos % (Auto) [place] # Seg Neutrophils % Seg Neuts % (Manual) Lymphocytes % (Manual) Seg Neutrophils # Seg Neutrophils # Man Lymphocytes # (Manual) APTT POC ABG pH ABG pH POC ABG pCO2 POC ABG pO2 ABG pO2 ABG HCO3 ABG Base Excess ABG Hemoglobin VBG pH Oxyhemoglobin Sodium Potassium Chloride Carbon Dioxide BUN Creatinine Glucose POC Glucose 189 H 398 H 126 H Lactic Acid Calcium AST ALT Alkaline Phosphatase CK-MB (CK-2) CK-MB (CK-2) Rel Index Total Protein Albumin TSH Urine WBC (Auto) Salicylates 03/11/17 03/11/17 03/11/17 11:53 17:30 23:10 WBC RBC Hgb Hct MCV MCH RDW Plt Count Lymph % (Auto) [place] % (Auto) Eos % (Auto) [place] # Seg Neutrophils % Seg Neuts % (Manual) Lymphocytes % (Manual) Seg Neutrophils # Seg Neutrophils # Man Lymphocytes # (Manual) APTT POC ABG pH ABG pH POC ABG pCO2 POC ABG pO2 ABG pO2 ABG HCO3 ABG Base Excess ABG Hemoglobin VBG pH Oxyhemoglobin Sodium Potassium Chloride Carbon Dioxide BUN Creatinine Glucose POC Glucose 198 H 142 H 244 H Lactic Acid Calcium AST ALT Alkaline Phosphatase CK-MB (CK-2) CK-MB (CK-2) Rel Index Total Protein Albumin TSH Urine WBC (Auto) Salicylates 03/12/17 03/12/17 03/12/17 04:36 11:49 17:23 WBC RBC Hgb Hct MCV MCH RDW Plt Count Lymph % (Auto) [place] % (Auto) Eos % (Auto) [place] # Seg Neutrophils % Seg Neuts % (Manual) Lymphocytes % (Manual) Seg Neutrophils # Seg Neutrophils # Man Lymphocytes # (Manual) APTT POC ABG pH ABG pH POC ABG pCO2 POC ABG pO2 ABG pO2 ABG HCO3 ABG Base Excess ABG Hemoglobin VBG pH Oxyhemoglobin Sodium Potassium Chloride Carbon Dioxide BUN Creatinine Glucose POC Glucose 205 H 197 H 209 H Lactic Acid Calcium AST ALT Alkaline Phosphatase CK-MB (CK-2) CK-MB (CK-2) Rel Index Total Protein Albumin TSH Urine WBC (Auto) Salicylates 03/12/17 03/13/17 03/13/17 23:51 05:32 11:43 WBC RBC Hgb Hct MCV MCH RDW Plt Count Lymph % (Auto) [place] % (Auto) Eos % (Auto) [place] # Seg Neutrophils % Seg Neuts % (Manual) Lymphocytes % (Manual) Seg Neutrophils # Seg Neutrophils # Man Lymphocytes # (Manual) APTT POC ABG pH ABG pH POC ABG pCO2 POC ABG pO2 ABG pO2 ABG HCO3 ABG Base Excess ABG Hemoglobin VBG pH Oxyhemoglobin Sodium Potassium Chloride Carbon Dioxide BUN Creatinine Glucose POC Glucose 210 H 154 H 164 H Lactic Acid Calcium AST ALT Alkaline Phosphatase CK-MB (CK-2) CK-MB (CK-2) Rel Index Total Protein Albumin TSH Urine WBC (Auto) Salicylates 03/13/17 03/13/17 03/14/17 17:11 23:26 05:42 WBC RBC Hgb Hct MCV MCH RDW Plt Count Lymph % (Auto) [place] % (Auto) Eos % (Auto) [place] # Seg Neutrophils % Seg Neuts % (Manual) Lymphocytes % (Manual) Seg Neutrophils # Seg Neutrophils # Man Lymphocytes # (Manual) APTT POC ABG pH ABG pH POC ABG pCO2 POC ABG pO2 ABG pO2 ABG HCO3 ABG Base Excess ABG Hemoglobin VBG pH Oxyhemoglobin Sodium Potassium Chloride Carbon Dioxide BUN Creatinine Glucose POC Glucose 195 H 240 H 230 H Lactic Acid Calcium AST ALT Alkaline Phosphatase CK-MB (CK-2) CK-MB (CK-2) Rel Index Total Protein Albumin TSH Urine WBC (Auto) Salicylates 03/14/17 03/14/17 03/14/17 14:04 17:34 23:42 WBC RBC Hgb Hct MCV MCH RDW Plt Count Lymph % (Auto) [place] % (Auto) Eos % (Auto) [place] # Seg Neutrophils % Seg Neuts % (Manual) Lymphocytes % (Manual) Seg Neutrophils # Seg Neutrophils # Man Lymphocytes # (Manual) APTT POC ABG pH ABG pH POC ABG pCO2 POC ABG pO2 ABG pO2 ABG HCO3 ABG Base Excess ABG Hemoglobin VBG pH Oxyhemoglobin Sodium Potassium Chloride Carbon Dioxide BUN Creatinine Glucose POC Glucose 227 H 186 H 225 H Lactic Acid Calcium AST ALT Alkaline Phosphatase CK-MB (CK-2) CK-MB (CK-2) Rel Index Total Protein Albumin TSH Urine WBC (Auto) Salicylates 03/15/17 03/15/17 03/15/17 05:21 17:13 21:37 WBC RBC Hgb Hct MCV MCH RDW Plt Count Lymph % (Auto) [place] % (Auto) Eos % (Auto) [place] # Seg Neutrophils % Seg Neuts % (Manual) Lymphocytes % (Manual) Seg Neutrophils # Seg Neutrophils # Man Lymphocytes # (Manual) APTT POC ABG pH ABG pH POC ABG pCO2 POC ABG pO2 ABG pO2 ABG HCO3 ABG Base Excess ABG Hemoglobin VBG pH Oxyhemoglobin Sodium Potassium Chloride Carbon Dioxide BUN Creatinine Glucose POC Glucose 244 H 203 H 216 H Lactic Acid Calcium AST ALT Alkaline Phosphatase CK-MB (CK-2) CK-MB (CK-2) Rel Index Total Protein Albumin TSH Urine WBC (Auto) Salicylates 03/16/17 03/16/17 03/16/17 05:52 18:07 21:54 WBC RBC Hgb Hct MCV MCH RDW Plt Count Lymph % (Auto) [place] % (Auto) Eos % (Auto) [place] # Seg Neutrophils % Seg Neuts % (Manual) Lymphocytes % (Manual) Seg Neutrophils # Seg Neutrophils # Man Lymphocytes # (Manual) APTT POC ABG pH ABG pH POC ABG pCO2 POC ABG pO2 ABG pO2 ABG HCO3 ABG Base Excess ABG Hemoglobin VBG pH Oxyhemoglobin Sodium Potassium Chloride Carbon Dioxide BUN Creatinine Glucose POC Glucose 248 H 254 H 244 H Lactic Acid Calcium AST ALT Alkaline Phosphatase CK-MB (CK-2) CK-MB (CK-2) Rel Index Total Protein Albumin TSH Urine WBC (Auto) Salicylates 03/17/17 03/17/17 03/17/17 07:07 07:42 07:43 WBC RBC Hgb 9.7 L Hct 29.1 L MCV 78 L MCH 26 L RDW 17.4 H Plt Count Lymph % (Auto) [place] % (Auto) Eos % (Auto) [place] # Seg Neutrophils % Seg Neuts % (Manual) Lymphocytes % (Manual) Seg Neutrophils # Seg Neutrophils # Man Lymphocytes # (Manual) APTT POC ABG pH ABG pH POC ABG pCO2 POC ABG pO2 ABG pO2 ABG HCO3 ABG Base Excess ABG Hemoglobin VBG pH Oxyhemoglobin Sodium Potassium Chloride 96.6 L Carbon Dioxide BUN 30 H Creatinine 0.5 L Glucose 251 H POC Glucose 222 H Lactic Acid Calcium AST ALT Alkaline Phosphatase CK-MB (CK-2) CK-MB (CK-2) Rel Index Total Protein Albumin TSH Urine WBC (Auto) Salicylates 03/17/17 03/17/17 03/18/17 14:08 21:20 14:24 WBC RBC Hgb Hct MCV MCH RDW Plt Count Lymph % (Auto) [place] % (Auto) Eos % (Auto) [place] # Seg Neutrophils % Seg Neuts % (Manual) Lymphocytes % (Manual) Seg Neutrophils # Seg Neutrophils # Man Lymphocytes # (Manual) APTT POC ABG pH ABG pH POC ABG pCO2 POC ABG pO2 ABG pO2 ABG HCO3 ABG Base Excess ABG Hemoglobin VBG pH Oxyhemoglobin Sodium Potassium Chloride Carbon Dioxide BUN Creatinine Glucose POC Glucose 281 H 239 H 195 H Lactic Acid Calcium AST ALT Alkaline Phosphatase CK-MB (CK-2) CK-MB (CK-2) Rel Index Total Protein Albumin TSH Urine WBC (Auto) Salicylates 03/18/17 03/19/17 03/19/17 21:37 04:57 14:23 WBC RBC Hgb Hct MCV MCH RDW Plt Count Lymph % (Auto) [place] % (Auto) Eos % (Auto) [place] # Seg Neutrophils % Seg Neuts % (Manual) Lymphocytes % (Manual) Seg Neutrophils # Seg Neutrophils # Man Lymphocytes # (Manual) APTT POC ABG pH ABG pH POC ABG pCO2 POC ABG pO2 ABG pO2 ABG HCO3 ABG Base Excess ABG Hemoglobin VBG pH Oxyhemoglobin Sodium Potassium Chloride Carbon Dioxide BUN Creatinine Glucose POC Glucose 227 H 205 H 277 H Lactic Acid Calcium AST ALT Alkaline Phosphatase CK-MB (CK-2) CK-MB (CK-2) Rel Index Total Protein Albumin TSH Urine WBC (Auto) Salicylates 03/19/17 03/19/17 03/20/17 20:31 21:47 04:55 WBC RBC Hgb Hct MCV MCH RDW Plt Count Lymph % (Auto) [place] % (Auto) Eos % (Auto) [place] # Seg Neutrophils % Seg Neuts % (Manual) Lymphocytes % (Manual) Seg Neutrophils # Seg Neutrophils # Man Lymphocytes # (Manual) APTT POC ABG pH ABG pH POC ABG pCO2 POC ABG pO2 ABG pO2 ABG HCO3 ABG Base Excess ABG Hemoglobin VBG pH Oxyhemoglobin Sodium Potassium Chloride Carbon Dioxide BUN Creatinine Glucose POC Glucose 256 H 270 H 202 H Lactic Acid Calcium AST ALT Alkaline Phosphatase CK-MB (CK-2) CK-MB (CK-2) Rel Index Total Protein Albumin TSH Urine WBC (Auto) Salicylates 03/20/17 03/20/17 03/21/17 14:09 21:40 05:09 WBC RBC Hgb Hct MCV MCH RDW Plt Count Lymph % (Auto) [place] % (Auto) Eos % (Auto) [place] # Seg Neutrophils % Seg Neuts % (Manual) Lymphocytes % (Manual) Seg Neutrophils # Seg Neutrophils # Man Lymphocytes # (Manual) APTT POC ABG pH ABG pH POC ABG pCO2 POC ABG pO2 ABG pO2 ABG HCO3 ABG Base Excess ABG Hemoglobin VBG pH Oxyhemoglobin Sodium Potassium Chloride Carbon Dioxide BUN Creatinine Glucose POC Glucose 200 H 214 H 233 H Lactic Acid Calcium AST ALT Alkaline Phosphatase CK-MB (CK-2) CK-MB (CK-2) Rel Index Total Protein Albumin TSH Urine WBC (Auto) Salicylates 03/21/17 03/21/17 03/22/17 14:06 21:26 05:43 WBC RBC Hgb Hct MCV MCH RDW Plt Count Lymph % (Auto) [place] % (Auto) Eos % (Auto) [place] # Seg Neutrophils % Seg Neuts % (Manual) Lymphocytes % (Manual) Seg Neutrophils # Seg Neutrophils # Man Lymphocytes # (Manual) APTT POC ABG pH ABG pH POC ABG pCO2 POC ABG pO2 ABG pO2 ABG HCO3 ABG Base Excess ABG Hemoglobin VBG pH Oxyhemoglobin Sodium Potassium Chloride Carbon Dioxide BUN Creatinine Glucose POC Glucose 250 H 155 H 251 H Lactic Acid Calcium AST ALT Alkaline Phosphatase CK-MB (CK-2) CK-MB (CK-2) Rel Index Total Protein Albumin TSH Urine WBC (Auto) Salicylates 03/22/17 03/22/17 03/23/17 13:46 21:16 00:23 WBC RBC Hgb Hct MCV MCH RDW Plt Count Lymph % (Auto) [place] % (Auto) Eos % (Auto) [place] # Seg Neutrophils % Seg Neuts % (Manual) Lymphocytes % (Manual) Seg Neutrophils # Seg Neutrophils # Man Lymphocytes # (Manual) APTT POC ABG pH ABG pH POC ABG pCO2 POC ABG pO2 ABG pO2 ABG HCO3 ABG Base Excess ABG Hemoglobin VBG pH Oxyhemoglobin Sodium Potassium Chloride Carbon Dioxide BUN Creatinine Glucose POC Glucose 269 H 197 H 126 H Lactic Acid Calcium AST ALT Alkaline Phosphatase CK-MB (CK-2) CK-MB (CK-2) Rel Index Total Protein Albumin TSH Urine WBC (Auto) Salicylates 03/23/17 03/23/17 03/23/17 05:39 14:06 21:39 WBC RBC Hgb Hct MCV MCH RDW Plt Count Lymph % (Auto) [place] % (Auto) Eos % (Auto) [place] # Seg Neutrophils % Seg Neuts % (Manual) Lymphocytes % (Manual) Seg Neutrophils # Seg Neutrophils # Man Lymphocytes # (Manual) APTT POC ABG pH ABG pH POC ABG pCO2 POC ABG pO2 ABG pO2 ABG HCO3 ABG Base Excess ABG Hemoglobin VBG pH Oxyhemoglobin Sodium Potassium Chloride Carbon Dioxide BUN Creatinine Glucose POC Glucose 234 H 241 H 248 H Lactic Acid Calcium AST ALT Alkaline Phosphatase CK-MB (CK-2) CK-MB (CK-2) Rel Index Total Protein Albumin TSH Urine WBC (Auto) Salicylates 03/24/17 03/24/17 03/25/17 05:06 21:46 05:38 WBC RBC Hgb Hct MCV MCH RDW Plt Count Lymph % (Auto) [place] % (Auto) Eos % (Auto) [place] # Seg Neutrophils % Seg Neuts % (Manual) Lymphocytes % (Manual) Seg Neutrophils # Seg Neutrophils # Man Lymphocytes # (Manual) APTT POC ABG pH ABG pH POC ABG pCO2 POC ABG pO2 ABG pO2 ABG HCO3 ABG Base Excess ABG Hemoglobin VBG pH Oxyhemoglobin Sodium Potassium Chloride Carbon Dioxide BUN Creatinine Glucose POC Glucose 232 H 276 H 242 H Lactic Acid Calcium AST ALT Alkaline Phosphatase CK-MB (CK-2) CK-MB (CK-2) Rel Index Total Protein Albumin TSH Urine WBC (Auto) Salicylates 03/25/17 03/25/17 03/26/17 14:30 23:14 13:53 WBC RBC Hgb Hct MCV MCH RDW Plt Count Lymph % (Auto) [place] % (Auto) Eos % (Auto) [place] # Seg Neutrophils % Seg Neuts % (Manual) Lymphocytes % (Manual) Seg Neutrophils # Seg Neutrophils # Man Lymphocytes # (Manual) APTT POC ABG pH ABG pH POC ABG pCO2 POC ABG pO2 ABG pO2 ABG HCO3 ABG Base Excess ABG Hemoglobin VBG pH Oxyhemoglobin Sodium Potassium Chloride Carbon Dioxide BUN Creatinine Glucose POC Glucose 246 H 208 H 195 H Lactic Acid Calcium AST ALT Alkaline Phosphatase CK-MB (CK-2) CK-MB (CK-2) Rel Index Total Protein Albumin TSH Urine WBC (Auto) Salicylates 03/26/17 03/27/17 03/27/17 21:58 05:18 14:57 WBC RBC Hgb Hct MCV MCH RDW Plt Count Lymph % (Auto) [place] % (Auto) Eos % (Auto) [place] # Seg Neutrophils % Seg Neuts % (Manual) Lymphocytes % (Manual) Seg Neutrophils # Seg Neutrophils # Man Lymphocytes # (Manual) APTT POC ABG pH ABG pH POC ABG pCO2 POC ABG pO2 ABG pO2 ABG HCO3 ABG Base Excess ABG Hemoglobin VBG pH Oxyhemoglobin Sodium Potassium Chloride Carbon Dioxide BUN Creatinine Glucose POC Glucose 241 H 199 H 269 H Lactic Acid Calcium AST ALT Alkaline Phosphatase CK-MB (CK-2) CK-MB (CK-2) Rel Index Total Protein Albumin TSH Urine WBC (Auto) Salicylates 03/27/17 03/28/17 03/28/17 21:33 13:52 21:29 WBC RBC Hgb Hct MCV MCH RDW Plt Count Lymph % (Auto) [place] % (Auto) Eos % (Auto) [place] # Seg Neutrophils % Seg Neuts % (Manual) Lymphocytes % (Manual) Seg Neutrophils # Seg Neutrophils # Man Lymphocytes # (Manual) APTT POC ABG pH ABG pH POC ABG pCO2 POC ABG pO2 ABG pO2 ABG HCO3 ABG Base Excess ABG Hemoglobin VBG pH Oxyhemoglobin Sodium Potassium Chloride Carbon Dioxide BUN Creatinine Glucose POC Glucose 214 H 243 H 286 H Lactic Acid Calcium AST ALT Alkaline Phosphatase CK-MB (CK-2) CK-MB (CK-2) Rel Index Total Protein Albumin TSH Urine WBC (Auto) Salicylates 03/29/17 03/29/17 03/29/17 04:32 04:32 13:58 WBC RBC Hgb 10.6 L Hct 32.9 L MCV 78 L MCH 25 L RDW 17.6 H Plt Count Lymph % (Auto) 38.0 H [place] % (Auto) 9.7 H Eos % (Auto) [place] # Seg Neutrophils % Seg Neuts % (Manual) Lymphocytes % (Manual) Seg Neutrophils # Seg Neutrophils # Man Lymphocytes # (Manual) APTT POC ABG pH ABG pH POC ABG pCO2 POC ABG pO2 ABG pO2 ABG HCO3 ABG Base Excess ABG Hemoglobin VBG pH Oxyhemoglobin Sodium 132 L Potassium Chloride 94.0 L Carbon Dioxide BUN 28 H Creatinine 0.5 L Glucose 236 H POC Glucose 171 H Lactic Acid Calcium AST ALT 71 H Alkaline Phosphatase 391 H CK-MB (CK-2) CK-MB (CK-2) Rel Index Total Protein 8.3 H Albumin 2.9 L TSH Urine WBC (Auto) Salicylates 03/29/17 03/30/17 03/30/17 20:59 06:07 11:52 WBC RBC Hgb Hct MCV MCH RDW Plt Count Lymph % (Auto) [place] % (Auto) Eos % (Auto) [place] # Seg Neutrophils % Seg Neuts % (Manual) Lymphocytes % (Manual) Seg Neutrophils # Seg Neutrophils # Man Lymphocytes # (Manual) APTT POC ABG pH ABG pH POC ABG pCO2 POC ABG pO2 ABG pO2 ABG HCO3 ABG Base Excess ABG Hemoglobin VBG pH Oxyhemoglobin Sodium Potassium Chloride Carbon Dioxide BUN Creatinine Glucose POC Glucose 215 H 259 H 197 H Lactic Acid Calcium AST ALT Alkaline Phosphatase CK-MB (CK-2) CK-MB (CK-2) Rel Index Total Protein Albumin TSH Urine WBC (Auto) Salicylates 03/30/17 03/31/17 03/31/17 21:34 05:42 14:34 WBC RBC Hgb Hct MCV MCH RDW Plt Count Lymph % (Auto) [place] % (Auto) Eos % (Auto) [place] # Seg Neutrophils % Seg Neuts % (Manual) Lymphocytes % (Manual) Seg Neutrophils # Seg Neutrophils # Man Lymphocytes # (Manual) APTT POC ABG pH ABG pH POC ABG pCO2 POC ABG pO2 ABG pO2 ABG HCO3 ABG Base Excess ABG Hemoglobin VBG pH Oxyhemoglobin Sodium Potassium Chloride Carbon Dioxide BUN Creatinine Glucose POC Glucose 207 H 184 H 213 H Lactic Acid Calcium AST ALT Alkaline Phosphatase CK-MB (CK-2) CK-MB (CK-2) Rel Index Total Protein Albumin TSH Urine WBC (Auto) Salicylates 03/31/17 04/01/17 04/01/17 21:32 05:53 13:48 WBC RBC Hgb Hct MCV MCH RDW Plt Count Lymph % (Auto) [place] % (Auto) Eos % (Auto) [place] # Seg Neutrophils % Seg Neuts % (Manual) Lymphocytes % (Manual) Seg Neutrophils # Seg Neutrophils # Man Lymphocytes # (Manual) APTT POC ABG pH ABG pH POC ABG pCO2 POC ABG pO2 ABG pO2 ABG HCO3 ABG Base Excess ABG Hemoglobin VBG pH Oxyhemoglobin Sodium Potassium Chloride Carbon Dioxide BUN Creatinine Glucose POC Glucose 249 H 225 H 256 H Lactic Acid Calcium AST ALT Alkaline Phosphatase CK-MB (CK-2) CK-MB (CK-2) Rel Index Total Protein Albumin TSH Urine WBC (Auto) Salicylates 04/01/17 04/02/17 04/02/17 21:34 05:32 14:05 WBC RBC Hgb Hct MCV MCH RDW Plt Count Lymph % (Auto) [place] % (Auto) Eos % (Auto) [place] # Seg Neutrophils % Seg Neuts % (Manual) Lymphocytes % (Manual) Seg Neutrophils # Seg Neutrophils # Man Lymphocytes # (Manual) APTT POC ABG pH ABG pH POC ABG pCO2 POC ABG pO2 ABG pO2 ABG HCO3 ABG Base Excess ABG Hemoglobin VBG pH Oxyhemoglobin Sodium Potassium Chloride Carbon Dioxide BUN Creatinine Glucose POC Glucose 292 H 220 H 187 H Lactic Acid Calcium AST ALT Alkaline Phosphatase CK-MB (CK-2) CK-MB (CK-2) Rel Index Total Protein Albumin TSH Urine WBC (Auto) Salicylates 04/02/17 04/03/17 04/03/17 21:57 04:49 14:12 WBC RBC Hgb Hct MCV MCH RDW Plt Count Lymph % (Auto) [place] % (Auto) Eos % (Auto) [place] # Seg Neutrophils % Seg Neuts % (Manual) Lymphocytes % (Manual) Seg Neutrophils # Seg Neutrophils # Man Lymphocytes # (Manual) APTT POC ABG pH ABG pH POC ABG pCO2 POC ABG pO2 ABG pO2 ABG HCO3 ABG Base Excess ABG Hemoglobin VBG pH Oxyhemoglobin Sodium Potassium Chloride Carbon Dioxide BUN Creatinine Glucose POC Glucose 285 H 256 H 197 H Lactic Acid Calcium AST ALT Alkaline Phosphatase CK-MB (CK-2) CK-MB (CK-2) Rel Index Total Protein Albumin TSH Urine WBC (Auto) Salicylates 04/03/17 04/04/17 04/04/17 21:11 05:20 13:18 WBC RBC Hgb Hct MCV MCH RDW Plt Count Lymph % (Auto) [place] % (Auto) Eos % (Auto) [place] # Seg Neutrophils % Seg Neuts % (Manual) Lymphocytes % (Manual) Seg Neutrophils # Seg Neutrophils # Man Lymphocytes # (Manual) APTT POC ABG pH ABG pH POC ABG pCO2 POC ABG pO2 ABG pO2 ABG HCO3 ABG Base Excess ABG Hemoglobin VBG pH Oxyhemoglobin Sodium Potassium Chloride Carbon Dioxide BUN Creatinine Glucose POC Glucose 166 H 228 H 252 H Lactic Acid Calcium AST ALT Alkaline Phosphatase CK-MB (CK-2) CK-MB (CK-2) Rel Index Total Protein Albumin TSH Urine WBC (Auto) Salicylates 04/04/17 04/05/17 04/05/17 21:51 06:14 09:54 WBC RBC Hgb Hct MCV MCH RDW Plt Count Lymph % (Auto) [place] % (Auto) Eos % (Auto) [place] # Seg Neutrophils % Seg Neuts % (Manual) Lymphocytes % (Manual) Seg Neutrophils # Seg Neutrophils # Man Lymphocytes # (Manual) APTT POC ABG pH ABG pH POC ABG pCO2 POC ABG pO2 ABG pO2 ABG HCO3 ABG Base Excess ABG Hemoglobin VBG pH Oxyhemoglobin Sodium Potassium Chloride Carbon Dioxide BUN Creatinine Glucose POC Glucose 252 H 152 H 181 H Lactic Acid Calcium AST ALT Alkaline Phosphatase CK-MB (CK-2) CK-MB (CK-2) Rel Index Total Protein Albumin TSH Urine WBC (Auto) Salicylates 04/05/17 04/05/17 04/05/17 14:49 17:34 21:38 WBC RBC Hgb Hct MCV MCH RDW Plt Count Lymph % (Auto) [place] % (Auto) Eos % (Auto) [place] # Seg Neutrophils % Seg Neuts % (Manual) Lymphocytes % (Manual) Seg Neutrophils # Seg Neutrophils # Man Lymphocytes # (Manual) APTT POC ABG pH ABG pH POC ABG pCO2 POC ABG pO2 ABG pO2 ABG HCO3 ABG Base Excess ABG Hemoglobin VBG pH Oxyhemoglobin Sodium Potassium Chloride Carbon Dioxide BUN Creatinine Glucose POC Glucose 219 H 268 H 278 H Lactic Acid Calcium AST ALT Alkaline Phosphatase CK-MB (CK-2) CK-MB (CK-2) Rel Index Total Protein Albumin TSH Urine WBC (Auto) Salicylates 04/06/17 04/06/17 04/07/17 15:04 22:14 05:09 WBC RBC Hgb Hct MCV MCH RDW Plt Count Lymph % (Auto) [place] % (Auto) Eos % (Auto) [place] # Seg Neutrophils % Seg Neuts % (Manual) Lymphocytes % (Manual) Seg Neutrophils # Seg Neutrophils # Man Lymphocytes # (Manual) APTT POC ABG pH ABG pH POC ABG pCO2 POC ABG pO2 ABG pO2 ABG HCO3 ABG Base Excess ABG Hemoglobin VBG pH Oxyhemoglobin Sodium Potassium Chloride Carbon Dioxide BUN Creatinine Glucose POC Glucose 285 H 106 H 334 H Lactic Acid Calcium AST ALT Alkaline Phosphatase CK-MB (CK-2) CK-MB (CK-2) Rel Index Total Protein Albumin TSH Urine WBC (Auto) Salicylates 04/07/17 04/07/17 04/08/17 14:45 21:48 05:28 WBC RBC Hgb Hct MCV MCH RDW Plt Count Lymph % (Auto) [place] % (Auto) Eos % (Auto) [place] # Seg Neutrophils % Seg Neuts % (Manual) Lymphocytes % (Manual) Seg Neutrophils # Seg Neutrophils # Man Lymphocytes # (Manual) APTT POC ABG pH ABG pH POC ABG pCO2 POC ABG pO2 ABG pO2 ABG HCO3 ABG Base Excess ABG Hemoglobin VBG pH Oxyhemoglobin Sodium Potassium Chloride Carbon Dioxide BUN Creatinine Glucose POC Glucose 173 H 304 H 314 H Lactic Acid Calcium AST ALT Alkaline Phosphatase CK-MB (CK-2) CK-MB (CK-2) Rel Index Total Protein Albumin TSH Urine WBC (Auto) Salicylates 04/08/17 04/08/17 04/08/17 15:57 16:17 22:21 WBC RBC Hgb Hct MCV MCH RDW Plt Count Lymph % (Auto) [place] % (Auto) Eos % (Auto) [place] # Seg Neutrophils % Seg Neuts % (Manual) Lymphocytes % (Manual) Seg Neutrophils # Seg Neutrophils # Man Lymphocytes # (Manual) APTT POC ABG pH ABG pH POC ABG pCO2 POC ABG pO2 ABG pO2 ABG HCO3 ABG Base Excess ABG Hemoglobin VBG pH Oxyhemoglobin Sodium Potassium Chloride Carbon Dioxide BUN Creatinine Glucose POC Glucose 356 H 337 H 323 H Lactic Acid Calcium AST ALT Alkaline Phosphatase CK-MB (CK-2) CK-MB (CK-2) Rel Index Total Protein Albumin TSH Urine WBC (Auto) Salicylates 04/09/17 04/09/17 04/09/17 06:19 15:30 21:52 WBC RBC Hgb Hct MCV MCH RDW Plt Count Lymph % (Auto) [place] % (Auto) Eos % (Auto) [place] # Seg Neutrophils % Seg Neuts % (Manual) Lymphocytes % (Manual) Seg Neutrophils # Seg Neutrophils # Man Lymphocytes # (Manual) APTT POC ABG pH ABG pH POC ABG pCO2 POC ABG pO2 ABG pO2 ABG HCO3 ABG Base Excess ABG Hemoglobin VBG pH Oxyhemoglobin Sodium Potassium Chloride Carbon Dioxide BUN Creatinine Glucose POC Glucose 340 H 332 H 341 H Lactic Acid Calcium AST ALT Alkaline Phosphatase CK-MB (CK-2) CK-MB (CK-2) Rel Index Total Protein Albumin TSH Urine WBC (Auto) Salicylates 04/10/17 04/10/17 04/10/17 01:53 05:33 17:40 WBC RBC Hgb Hct MCV MCH RDW Plt Count Lymph % (Auto) [place] % (Auto) Eos % (Auto) [place] # Seg Neutrophils % Seg Neuts % (Manual) Lymphocytes % (Manual) Seg Neutrophils # Seg Neutrophils # Man Lymphocytes # (Manual) APTT POC ABG pH ABG pH POC ABG pCO2 POC ABG pO2 ABG pO2 ABG HCO3 ABG Base Excess ABG Hemoglobin VBG pH Oxyhemoglobin Sodium Potassium Chloride Carbon Dioxide BUN Creatinine Glucose POC Glucose 261 H 277 H 304 H Lactic Acid Calcium AST ALT Alkaline Phosphatase CK-MB (CK-2) CK-MB (CK-2) Rel Index Total Protein Albumin TSH Urine WBC (Auto) Salicylates 04/10/17 04/11/17 04/11/17 21:29 05:28 14:02 WBC RBC Hgb Hct MCV MCH RDW Plt Count Lymph % (Auto) [place] % (Auto) Eos % (Auto) [place] # Seg Neutrophils % Seg Neuts % (Manual) Lymphocytes % (Manual) Seg Neutrophils # Seg Neutrophils # Man Lymphocytes # (Manual) APTT POC ABG pH ABG pH POC ABG pCO2 POC ABG pO2 ABG pO2 ABG HCO3 ABG Base Excess ABG Hemoglobin VBG pH Oxyhemoglobin Sodium Potassium Chloride Carbon Dioxide BUN Creatinine Glucose POC Glucose 361 H 204 H 236 H Lactic Acid Calcium AST ALT Alkaline Phosphatase CK-MB (CK-2) CK-MB (CK-2) Rel Index Total Protein Albumin TSH Urine WBC (Auto) Salicylates 04/11/17 04/12/17 04/12/17 21:43 05:00 11:53 WBC RBC Hgb Hct MCV MCH RDW Plt Count Lymph % (Auto) [place] % (Auto) Eos % (Auto) [place] # Seg Neutrophils % Seg Neuts % (Manual) Lymphocytes % (Manual) Seg Neutrophils # Seg Neutrophils # Man Lymphocytes # (Manual) APTT POC ABG pH ABG pH POC ABG pCO2 POC ABG pO2 ABG pO2 ABG HCO3 ABG Base Excess ABG Hemoglobin VBG pH Oxyhemoglobin Sodium Potassium Chloride Carbon Dioxide BUN Creatinine Glucose POC Glucose 287 H 294 H 265 H Lactic Acid Calcium AST ALT Alkaline Phosphatase CK-MB (CK-2) CK-MB (CK-2) Rel Index Total Protein Albumin TSH Urine WBC (Auto) Salicylates 04/12/17 04/12/17 04/13/17 21:21 23:44 06:05 WBC RBC Hgb Hct MCV MCH RDW Plt Count Lymph % (Auto) [place] % (Auto) Eos % (Auto) [place] # Seg Neutrophils % Seg Neuts % (Manual) Lymphocytes % (Manual) Seg Neutrophils # Seg Neutrophils # Man Lymphocytes # (Manual) APTT POC ABG pH ABG pH POC ABG pCO2 POC ABG pO2 ABG pO2 ABG HCO3 ABG Base Excess ABG Hemoglobin VBG pH Oxyhemoglobin Sodium Potassium Chloride Carbon Dioxide BUN Creatinine Glucose POC Glucose 289 H 348 H 326 H Lactic Acid Calcium AST ALT Alkaline Phosphatase CK-MB (CK-2) CK-MB (CK-2) Rel Index Total Protein Albumin TSH Urine WBC (Auto) Salicylates 04/13/17 04/13/17 04/14/17 13:54 21:15 05:49 WBC RBC Hgb Hct MCV MCH RDW Plt Count Lymph % (Auto) [place] % (Auto) Eos % (Auto) [place] # Seg Neutrophils % Seg Neuts % (Manual) Lymphocytes % (Manual) Seg Neutrophils # Seg Neutrophils # Man Lymphocytes # (Manual) APTT POC ABG pH ABG pH POC ABG pCO2 POC ABG pO2 ABG pO2 ABG HCO3 ABG Base Excess ABG Hemoglobin VBG pH Oxyhemoglobin Sodium Potassium Chloride Carbon Dioxide BUN Creatinine Glucose POC Glucose 326 H 263 H 319 H Lactic Acid Calcium AST ALT Alkaline Phosphatase CK-MB (CK-2) CK-MB (CK-2) Rel Index Total Protein Albumin TSH Urine WBC (Auto) Salicylates 04/14/17 04/14/17 04/15/17 13:26 23:13 14:24 WBC RBC Hgb Hct MCV MCH RDW Plt Count Lymph % (Auto) [place] % (Auto) Eos % (Auto) [place] # Seg Neutrophils % Seg Neuts % (Manual) Lymphocytes % (Manual) Seg Neutrophils # Seg Neutrophils # Man Lymphocytes # (Manual) APTT POC ABG pH ABG pH POC ABG pCO2 POC ABG pO2 ABG pO2 ABG HCO3 ABG Base Excess ABG Hemoglobin VBG pH Oxyhemoglobin Sodium Potassium Chloride Carbon Dioxide BUN Creatinine Glucose POC Glucose 207 H 365 H 308 H Lactic Acid Calcium AST ALT Alkaline Phosphatase CK-MB (CK-2) CK-MB (CK-2) Rel Index Total Protein Albumin TSH Urine WBC (Auto) Salicylates 04/15/17 04/15/17 04/15/17 21:00 22:18 23:12 WBC RBC Hgb Hct MCV MCH RDW Plt Count Lymph % (Auto) [place] % (Auto) Eos % (Auto) [place] # Seg Neutrophils % Seg Neuts % (Manual) Lymphocytes % (Manual) Seg Neutrophils # Seg Neutrophils # Man Lymphocytes # (Manual) APTT POC ABG pH ABG pH POC ABG pCO2 POC ABG pO2 ABG pO2 ABG HCO3 ABG Base Excess ABG Hemoglobin VBG pH Oxyhemoglobin Sodium Potassium Chloride Carbon Dioxide BUN Creatinine Glucose POC Glucose 407 H 287 H 325 H Lactic Acid Calcium AST ALT Alkaline Phosphatase CK-MB (CK-2) CK-MB (CK-2) Rel Index Total Protein Albumin TSH Urine WBC (Auto) Salicylates 04/16/17 04/16/17 04/16/17 05:30 10:07 14:26 WBC RBC Hgb Hct MCV MCH RDW Plt Count Lymph % (Auto) [place] % (Auto) Eos % (Auto) [place] # Seg Neutrophils % Seg Neuts % (Manual) Lymphocytes % (Manual) Seg Neutrophils # Seg Neutrophils # Man Lymphocytes # (Manual) APTT POC ABG pH ABG pH POC ABG pCO2 POC ABG pO2 ABG pO2 ABG HCO3 ABG Base Excess ABG Hemoglobin VBG pH Oxyhemoglobin Sodium Potassium Chloride Carbon Dioxide BUN Creatinine Glucose POC Glucose 304 H 217 H 344 H Lactic Acid Calcium AST ALT Alkaline Phosphatase CK-MB (CK-2) CK-MB (CK-2) Rel Index Total Protein Albumin TSH Urine WBC (Auto) Salicylates 04/16/17 04/17/17 04/17/17 21:25 05:12 14:19 WBC RBC Hgb Hct MCV MCH RDW Plt Count Lymph % (Auto) [place] % (Auto) Eos % (Auto) [place] # Seg Neutrophils % Seg Neuts % (Manual) Lymphocytes % (Manual) Seg Neutrophils # Seg Neutrophils # Man Lymphocytes # (Manual) APTT POC ABG pH ABG pH POC ABG pCO2 POC ABG pO2 ABG pO2 ABG HCO3 ABG Base Excess ABG Hemoglobin VBG pH Oxyhemoglobin Sodium Potassium Chloride Carbon Dioxide BUN Creatinine Glucose POC Glucose 305 H 233 H 324 H Lactic Acid Calcium AST ALT Alkaline Phosphatase CK-MB (CK-2) CK-MB (CK-2) Rel Index Total Protein Albumin TSH Urine WBC (Auto) Salicylates 04/17/17 04/18/17 04/18/17 21:42 06:21 14:08 WBC RBC Hgb Hct MCV MCH RDW Plt Count Lymph % (Auto) [place] % (Auto) Eos % (Auto) [place] # Seg Neutrophils % Seg Neuts % (Manual) Lymphocytes % (Manual) Seg Neutrophils # Seg Neutrophils # Man Lymphocytes # (Manual) APTT POC ABG pH ABG pH POC ABG pCO2 POC ABG pO2 ABG pO2 ABG HCO3 ABG Base Excess ABG Hemoglobin VBG pH Oxyhemoglobin Sodium Potassium Chloride Carbon Dioxide BUN Creatinine Glucose POC Glucose 270 H 308 H 290 H Lactic Acid Calcium AST ALT Alkaline Phosphatase CK-MB (CK-2) CK-MB (CK-2) Rel Index Total Protein Albumin TSH Urine WBC (Auto) Salicylates 04/18/17 04/19/17 04/19/17 21:50 05:20 13:59 WBC RBC Hgb Hct MCV MCH RDW Plt Count Lymph % (Auto) [place] % (Auto) Eos % (Auto) [place] # Seg Neutrophils % Seg Neuts % (Manual) Lymphocytes % (Manual) Seg Neutrophils # Seg Neutrophils # Man Lymphocytes # (Manual) APTT POC ABG pH ABG pH POC ABG pCO2 POC ABG pO2 ABG pO2 ABG HCO3 ABG Base Excess ABG Hemoglobin VBG pH Oxyhemoglobin Sodium Potassium Chloride Carbon Dioxide BUN Creatinine Glucose POC Glucose 167 H 372 H 321 H Lactic Acid Calcium AST ALT Alkaline Phosphatase CK-MB (CK-2) CK-MB (CK-2) Rel Index Total Protein Albumin TSH Urine WBC (Auto) Salicylates 04/19/17 04/20/17 04/20/17 21:16 14:18 21:34 WBC RBC Hgb Hct MCV MCH RDW Plt Count Lymph % (Auto) [place] % (Auto) Eos % (Auto) [place] # Seg Neutrophils % Seg Neuts % (Manual) Lymphocytes % (Manual) Seg Neutrophils # Seg Neutrophils # Man Lymphocytes # (Manual) APTT POC ABG pH ABG pH POC ABG pCO2 POC ABG pO2 ABG pO2 ABG HCO3 ABG Base Excess ABG Hemoglobin VBG pH Oxyhemoglobin Sodium Potassium Chloride Carbon Dioxide BUN Creatinine Glucose POC Glucose 182 H 218 H 121 H Lactic Acid Calcium AST ALT Alkaline Phosphatase CK-MB (CK-2) CK-MB (CK-2) Rel Index Total Protein Albumin TSH Urine WBC (Auto) Salicylates 04/21/17 04/21/17 04/21/17 00:08 05:16 12:41 WBC RBC Hgb Hct MCV MCH RDW Plt Count Lymph % (Auto) [place] % (Auto) Eos % (Auto) [place] # Seg Neutrophils % Seg Neuts % (Manual) Lymphocytes % (Manual) Seg Neutrophils # Seg Neutrophils # Man Lymphocytes # (Manual) APTT POC ABG pH ABG pH POC ABG pCO2 POC ABG pO2 ABG pO2 ABG HCO3 ABG Base Excess ABG Hemoglobin VBG pH Oxyhemoglobin Sodium Potassium Chloride Carbon Dioxide BUN Creatinine Glucose POC Glucose 128 H 120 H 216 H Lactic Acid Calcium AST ALT Alkaline Phosphatase CK-MB (CK-2) CK-MB (CK-2) Rel Index Total Protein Albumin TSH Urine WBC (Auto) Salicylates 04/21/17 04/22/17 04/22/17 23:40 14:12 23:38 WBC RBC Hgb Hct MCV MCH RDW Plt Count Lymph % (Auto) [place] % (Auto) Eos % (Auto) [place] # Seg Neutrophils % Seg Neuts % (Manual) Lymphocytes % (Manual) Seg Neutrophils # Seg Neutrophils # Man Lymphocytes # (Manual) APTT POC ABG pH ABG pH POC ABG pCO2 POC ABG pO2 ABG pO2 ABG HCO3 ABG Base Excess ABG Hemoglobin VBG pH Oxyhemoglobin Sodium Potassium Chloride Carbon Dioxide BUN Creatinine Glucose POC Glucose 157 H 242 H 117 H Lactic Acid Calcium AST ALT Alkaline Phosphatase CK-MB (CK-2) CK-MB (CK-2) Rel Index Total Protein Albumin TSH Urine WBC (Auto) Salicylates 04/23/17 04/23/17 04/24/17 05:18 14:01 03:24 WBC RBC Hgb Hct MCV MCH RDW Plt Count Lymph % (Auto) [place] % (Auto) Eos % (Auto) [place] # Seg Neutrophils % Seg Neuts % (Manual) Lymphocytes % (Manual) Seg Neutrophils # Seg Neutrophils # Man Lymphocytes # (Manual) APTT POC ABG pH ABG pH POC ABG pCO2 POC ABG pO2 ABG pO2 ABG HCO3 ABG Base Excess ABG Hemoglobin VBG pH Oxyhemoglobin Sodium Potassium Chloride Carbon Dioxide BUN Creatinine Glucose POC Glucose 163 H 57 L 177 H Lactic Acid Calcium AST ALT Alkaline Phosphatase CK-MB (CK-2) CK-MB (CK-2) Rel Index Total Protein Albumin TSH Urine WBC (Auto) Salicylates 04/24/17 04/24/17 04/24/17 04:00 04:00 06:33 WBC RBC Hgb 9.9 L Hct 30.0 L MCV 79 L MCH 26 L RDW 17.1 H Plt Count 625 H Lymph % (Auto) [place] % (Auto) 8.4 H Eos % (Auto) [place] # Seg Neutrophils % Seg Neuts % (Manual) Lymphocytes % (Manual) Seg Neutrophils # Seg Neutrophils # Man Lymphocytes # (Manual) APTT POC ABG pH ABG pH POC ABG pCO2 POC ABG pO2 ABG pO2 ABG HCO3 ABG Base Excess ABG Hemoglobin VBG pH Oxyhemoglobin Sodium 136 L Potassium Chloride 94.9 L Carbon Dioxide BUN 40 H Creatinine 0.6 L Glucose 176 H POC Glucose 230 H Lactic Acid Calcium AST 67 H ALT Alkaline Phosphatase 294 H CK-MB (CK-2) CK-MB (CK-2) Rel Index Total Protein 9.0 H Albumin 2.5 L TSH Urine WBC (Auto) Salicylates 04/24/17 04/25/17 04/25/17 13:50 00:22 02:55 WBC RBC 3.54 L Hgb 9.0 L Hct 27.9 L MCV 79 L MCH 26 L RDW 17.5 H Plt Count 574 H Lymph % (Auto) [place] % (Auto) 10.4 H Eos % (Auto) [place] # 1.0 H Seg Neutrophils % Seg Neuts % (Manual) Lymphocytes % (Manual) Seg Neutrophils # Seg Neutrophils # Man Lymphocytes # (Manual) APTT POC ABG pH ABG pH POC ABG pCO2 POC ABG pO2 ABG pO2 ABG HCO3 ABG Base Excess ABG Hemoglobin VBG pH Oxyhemoglobin Sodium Potassium Chloride Carbon Dioxide BUN Creatinine Glucose POC Glucose 116 H < 40 L Lactic Acid Calcium AST ALT Alkaline Phosphatase CK-MB (CK-2) CK-MB (CK-2) Rel Index Total Protein Albumin TSH Urine WBC (Auto) Salicylates 04/25/17 04/25/17 04/25/17 02:55 11:15 18:36 WBC RBC Hgb Hct MCV MCH RDW Plt Count Lymph % (Auto) [place] % (Auto) Eos % (Auto) [place] # Seg Neutrophils % Seg Neuts % (Manual) Lymphocytes % (Manual) Seg Neutrophils # Seg Neutrophils # Man Lymphocytes # (Manual) APTT POC ABG pH ABG pH POC ABG pCO2 POC ABG pO2 ABG pO2 ABG HCO3 ABG Base Excess ABG Hemoglobin VBG pH Oxyhemoglobin Sodium Potassium Chloride 96.2 L Carbon Dioxide BUN 39 H Creatinine 0.7 L Glucose 125 H POC Glucose 227 H 280 H Lactic Acid Calcium AST ALT Alkaline Phosphatase 247 H CK-MB (CK-2) CK-MB (CK-2) Rel Index Total Protein Albumin 2.7 L TSH Urine WBC (Auto) Salicylates 04/25/17 04/26/17 04/26/17 21:49 06:53 07:27 WBC RBC 3.61 L Hgb 9.1 L Hct 28.1 L MCV 78 L MCH 25 L RDW 17.4 H Plt Count 594 H Lymph % (Auto) [place] % (Auto) 9.2 H Eos % (Auto) [place] # 1.0 H Seg Neutrophils % 70.6 H Seg Neuts % (Manual) Lymphocytes % (Manual) Seg Neutrophils # Seg Neutrophils # Man Lymphocytes # (Manual) APTT POC ABG pH ABG pH POC ABG pCO2 POC ABG pO2 ABG pO2 ABG HCO3 ABG Base Excess ABG Hemoglobin VBG pH Oxyhemoglobin Sodium Potassium Chloride Carbon Dioxide BUN Creatinine Glucose POC Glucose 192 H 60 L Lactic Acid Calcium AST ALT Alkaline Phosphatase CK-MB (CK-2) CK-MB (CK-2) Rel Index Total Protein Albumin TSH Urine WBC (Auto) Salicylates 04/26/17 04/26/17 04/26/17 07:27 07:28 13:32 WBC RBC Hgb Hct MCV MCH RDW Plt Count Lymph % (Auto) [place] % (Auto) Eos % (Auto) [place] # Seg Neutrophils % Seg Neuts % (Manual) Lymphocytes % (Manual) Seg Neutrophils # Seg Neutrophils # Man Lymphocytes # (Manual) APTT POC ABG pH ABG pH POC ABG pCO2 POC ABG pO2 ABG pO2 ABG HCO3 ABG Base Excess ABG Hemoglobin VBG pH Oxyhemoglobin Sodium Potassium Chloride 95.0 L Carbon Dioxide BUN 42 H Creatinine 0.7 L Glucose 172 H POC Glucose 190 H 168 H Lactic Acid Calcium AST 56 H ALT Alkaline Phosphatase 274 H CK-MB (CK-2) CK-MB (CK-2) Rel Index Total Protein 8.9 H Albumin 2.7 L TSH Urine WBC (Auto) Salicylates 04/26/17 04/27/17 04/27/17 23:36 05:10 05:10 WBC RBC 3.49 L Hgb 8.7 L Hct 27.0 L MCV 77 L MCH 25 L RDW 17.4 H Plt Count 558 H Lymph % (Auto) [place] % (Auto) 9.6 H Eos % (Auto) [place] # Seg Neutrophils % Seg Neuts % (Manual) Lymphocytes % (Manual) Seg Neutrophils # Seg Neutrophils # Man Lymphocytes # (Manual) APTT POC ABG pH ABG pH POC ABG pCO2 POC ABG pO2 ABG pO2 ABG HCO3 ABG Base Excess ABG Hemoglobin VBG pH Oxyhemoglobin Sodium 133 L Potassium Chloride 93.5 L Carbon Dioxide BUN 40 H Creatinine 0.7 L Glucose 179 H POC Glucose 204 H Lactic Acid Calcium AST 73 H ALT 58 H Alkaline Phosphatase 294 H CK-MB (CK-2) CK-MB (CK-2) Rel Index Total Protein 8.7 H Albumin 2.4 L TSH Urine WBC (Auto) Salicylates 04/27/17 04/27/17 04/27/17 05:45 14:08 23:46 WBC RBC Hgb Hct MCV MCH RDW Plt Count Lymph % (Auto) [place] % (Auto) Eos % (Auto) [place] # Seg Neutrophils % Seg Neuts % (Manual) Lymphocytes % (Manual) Seg Neutrophils # Seg Neutrophils # Man Lymphocytes # (Manual) APTT POC ABG pH ABG pH POC ABG pCO2 POC ABG pO2 ABG pO2 ABG HCO3 ABG Base Excess ABG Hemoglobin VBG pH Oxyhemoglobin Sodium Potassium Chloride Carbon Dioxide BUN Creatinine Glucose POC Glucose 200 H 206 H 207 H Lactic Acid Calcium AST ALT Alkaline Phosphatase CK-MB (CK-2) CK-MB (CK-2) Rel Index Total Protein Albumin TSH Urine WBC (Auto) Salicylates 04/28/17 04/28/17 04/28/17 04:48 04:53 05:10 WBC RBC 3.48 L Hgb 8.8 L Hct 26.7 L MCV 77 L MCH 25 L RDW 17.0 H Plt Count 515 H Lymph % (Auto) [place] % (Auto) 8.4 H Eos % (Auto) [place] # Seg Neutrophils % 70.6 H Seg Neuts % (Manual) Lymphocytes % (Manual) Seg Neutrophils # Seg Neutrophils # Man Lymphocytes # (Manual) APTT POC ABG pH ABG pH POC ABG pCO2 POC ABG pO2 ABG pO2 ABG HCO3 ABG Base Excess ABG Hemoglobin VBG pH Oxyhemoglobin Sodium Potassium Chloride Carbon Dioxide BUN Creatinine Glucose POC Glucose 43 L 41 L Lactic Acid Calcium AST ALT Alkaline Phosphatase CK-MB (CK-2) CK-MB (CK-2) Rel Index Total Protein Albumin TSH Urine WBC (Auto) Salicylates 04/28/17 04/28/17 04/28/17 05:10 14:06 22:07 WBC RBC Hgb Hct MCV MCH RDW Plt Count Lymph % (Auto) [place] % (Auto) Eos % (Auto) [place] # Seg Neutrophils % Seg Neuts % (Manual) Lymphocytes % (Manual) Seg Neutrophils # Seg Neutrophils # Man Lymphocytes # (Manual) APTT POC ABG pH ABG pH POC ABG pCO2 POC ABG pO2 ABG pO2 ABG HCO3 ABG Base Excess ABG Hemoglobin VBG pH Oxyhemoglobin Sodium 136 L Potassium Chloride 95.2 L Carbon Dioxide BUN 42 H Creatinine Glucose 63 L POC Glucose 303 H 227 H Lactic Acid Calcium AST 45 H ALT Alkaline Phosphatase 271 H CK-MB (CK-2) CK-MB (CK-2) Rel Index Total Protein 8.9 H Albumin 2.5 L TSH Urine WBC (Auto) Salicylates 04/29/17 04/29/17 04/29/17 06:40 14:11 21:35 WBC RBC Hgb Hct MCV MCH RDW Plt Count Lymph % (Auto) [place] % (Auto) Eos % (Auto) [place] # Seg Neutrophils % Seg Neuts % (Manual) Lymphocytes % (Manual) Seg Neutrophils # Seg Neutrophils # Man Lymphocytes # (Manual) APTT POC ABG pH ABG pH POC ABG pCO2 POC ABG pO2 ABG pO2 ABG HCO3 ABG Base Excess ABG Hemoglobin VBG pH Oxyhemoglobin Sodium Potassium Chloride Carbon Dioxide BUN Creatinine Glucose POC Glucose 254 H 244 H 184 H Lactic Acid Calcium AST ALT Alkaline Phosphatase CK-MB (CK-2) CK-MB (CK-2) Rel Index Total Protein Albumin TSH Urine WBC (Auto) Salicylates 04/30/17 04/30/17 04/30/17 05:17 14:03 22:08 WBC RBC Hgb Hct MCV MCH RDW Plt Count Lymph % (Auto) [place] % (Auto) Eos % (Auto) [place] # Seg Neutrophils % Seg Neuts % (Manual) Lymphocytes % (Manual) Seg Neutrophils # Seg Neutrophils # Man Lymphocytes # (Manual) APTT POC ABG pH ABG pH POC ABG pCO2 POC ABG pO2 ABG pO2 ABG HCO3 ABG Base Excess ABG Hemoglobin VBG pH Oxyhemoglobin Sodium Potassium Chloride Carbon Dioxide BUN Creatinine Glucose POC Glucose 173 H 182 H 247 H Lactic Acid Calcium AST ALT Alkaline Phosphatase CK-MB (CK-2) CK-MB (CK-2) Rel Index Total Protein Albumin TSH Urine WBC (Auto) Salicylates 05/01/17 05/01/17 05/01/17 05:04 15:37 18:50 WBC RBC Hgb Hct MCV MCH RDW Plt Count Lymph % (Auto) [place] % (Auto) Eos % (Auto) [place] # Seg Neutrophils % Seg Neuts % (Manual) Lymphocytes % (Manual) Seg Neutrophils # Seg Neutrophils # Man Lymphocytes # (Manual) APTT POC ABG pH ABG pH POC ABG pCO2 POC ABG pO2 ABG pO2 ABG HCO3 ABG Base Excess ABG Hemoglobin VBG pH Oxyhemoglobin Sodium Potassium Chloride Carbon Dioxide BUN Creatinine Glucose POC Glucose 335 H 68 L 144 H Lactic Acid Calcium AST ALT Alkaline Phosphatase CK-MB (CK-2) CK-MB (CK-2) Rel Index Total Protein Albumin TSH Urine WBC (Auto) Salicylates 05/01/17 05/02/17 05/02/17 22:13 04:59 14:06 WBC RBC Hgb Hct MCV MCH RDW Plt Count Lymph % (Auto) [place] % (Auto) Eos % (Auto) [place] # Seg Neutrophils % Seg Neuts % (Manual) Lymphocytes % (Manual) Seg Neutrophils # Seg Neutrophils # Man Lymphocytes # (Manual) APTT POC ABG pH ABG pH POC ABG pCO2 POC ABG pO2 ABG pO2 ABG HCO3 ABG Base Excess ABG Hemoglobin VBG pH Oxyhemoglobin Sodium Potassium Chloride Carbon Dioxide BUN Creatinine Glucose POC Glucose 192 H 225 H 165 H Lactic Acid Calcium AST ALT Alkaline Phosphatase CK-MB (CK-2) CK-MB (CK-2) Rel Index Total Protein Albumin TSH Urine WBC (Auto) Salicylates 05/02/17 05/03/17 05/03/17 21:20 05:16 16:56 WBC RBC Hgb Hct MCV MCH RDW Plt Count Lymph % (Auto) [place] % (Auto) Eos % (Auto) [place] # Seg Neutrophils % Seg Neuts % (Manual) Lymphocytes % (Manual) Seg Neutrophils # Seg Neutrophils # Man Lymphocytes # (Manual) APTT POC ABG pH ABG pH POC ABG pCO2 POC ABG pO2 ABG pO2 ABG HCO3 ABG Base Excess ABG Hemoglobin VBG pH Oxyhemoglobin Sodium Potassium Chloride Carbon Dioxide BUN Creatinine Glucose POC Glucose 181 H 323 H 125 H Lactic Acid Calcium AST ALT Alkaline Phosphatase CK-MB (CK-2) CK-MB (CK-2) Rel Index Total Protein Albumin TSH Urine WBC (Auto) Salicylates 05/03/17 05/04/17 05/04/17 21:46 05:01 14:24 WBC RBC Hgb Hct MCV MCH RDW Plt Count Lymph % (Auto) [place] % (Auto) Eos % (Auto) [place] # Seg Neutrophils % Seg Neuts % (Manual) Lymphocytes % (Manual) Seg Neutrophils # Seg Neutrophils # Man Lymphocytes # (Manual) APTT POC ABG pH ABG pH POC ABG pCO2 POC ABG pO2 ABG pO2 ABG HCO3 ABG Base Excess ABG Hemoglobin VBG pH Oxyhemoglobin Sodium Potassium Chloride Carbon Dioxide BUN Creatinine Glucose POC Glucose 210 H 360 H 219 H Lactic Acid Calcium AST ALT Alkaline Phosphatase CK-MB (CK-2) CK-MB (CK-2) Rel Index Total Protein Albumin TSH Urine WBC (Auto) Salicylates 05/04/17 05/05/17 05/05/17 21:39 01:58 05:13 WBC RBC Hgb Hct MCV MCH RDW Plt Count Lymph % (Auto) [place] % (Auto) Eos % (Auto) [place] # Seg Neutrophils % Seg Neuts % (Manual) Lymphocytes % (Manual) Seg Neutrophils # Seg Neutrophils # Man Lymphocytes # (Manual) APTT POC ABG pH ABG pH POC ABG pCO2 POC ABG pO2 ABG pO2 ABG HCO3 ABG Base Excess ABG Hemoglobin VBG pH Oxyhemoglobin Sodium Potassium Chloride Carbon Dioxide BUN Creatinine Glucose POC Glucose 126 H 175 H 267 H Lactic Acid Calcium AST ALT Alkaline Phosphatase CK-MB (CK-2) CK-MB (CK-2) Rel Index Total Protein Albumin TSH Urine WBC (Auto) Salicylates 05/05/17 05/05/17 05/05/17 12:19 14:11 21:18 WBC RBC Hgb Hct MCV MCH RDW Plt Count Lymph % (Auto) [place] % (Auto) Eos % (Auto) [place] # Seg Neutrophils % Seg Neuts % (Manual) Lymphocytes % (Manual) Seg Neutrophils # Seg Neutrophils # Man Lymphocytes # (Manual) APTT POC ABG pH ABG pH POC ABG pCO2 POC ABG pO2 ABG pO2 ABG HCO3 ABG Base Excess ABG Hemoglobin VBG pH Oxyhemoglobin Sodium Potassium Chloride Carbon Dioxide BUN Creatinine Glucose POC Glucose 221 H 205 H 156 H Lactic Acid Calcium AST ALT Alkaline Phosphatase CK-MB (CK-2) CK-MB (CK-2) Rel Index Total Protein Albumin TSH Urine WBC (Auto) Salicylates 05/06/17 05/06/17 05/06/17 06:02 15:26 21:43 WBC RBC Hgb Hct MCV MCH RDW Plt Count Lymph % (Auto) [place] % (Auto) Eos % (Auto) [place] # Seg Neutrophils % Seg Neuts % (Manual) Lymphocytes % (Manual) Seg Neutrophils # Seg Neutrophils # Man Lymphocytes # (Manual) APTT POC ABG pH ABG pH POC ABG pCO2 POC ABG pO2 ABG pO2 ABG HCO3 ABG Base Excess ABG Hemoglobin VBG pH Oxyhemoglobin Sodium Potassium Chloride Carbon Dioxide BUN Creatinine Glucose POC Glucose 263 H 143 H 145 H Lactic Acid Calcium AST ALT Alkaline Phosphatase CK-MB (CK-2) CK-MB (CK-2) Rel Index Total Protein Albumin TSH Urine WBC (Auto) Salicylates 05/07/17 05/07/17 05/07/17 05:52 21:46 21:49 WBC RBC Hgb Hct MCV MCH RDW Plt Count Lymph % (Auto) [place] % (Auto) Eos % (Auto) [place] # Seg Neutrophils % Seg Neuts % (Manual) Lymphocytes % (Manual) Seg Neutrophils # Seg Neutrophils # Man Lymphocytes # (Manual) APTT POC ABG pH ABG pH POC ABG pCO2 POC ABG pO2 ABG pO2 ABG HCO3 ABG Base Excess ABG Hemoglobin VBG pH Oxyhemoglobin Sodium Potassium Chloride Carbon Dioxide BUN Creatinine Glucose POC Glucose 242 H < 40 L < 40 L Lactic Acid Calcium AST ALT Alkaline Phosphatase CK-MB (CK-2) CK-MB (CK-2) Rel Index Total Protein Albumin TSH Urine WBC (Auto) Salicylates 05/07/17 05/08/17 05/09/17 22:41 06:14 00:02 WBC RBC Hgb Hct MCV MCH RDW Plt Count Lymph % (Auto) [place] % (Auto) Eos % (Auto) [place] # Seg Neutrophils % Seg Neuts % (Manual) Lymphocytes % (Manual) Seg Neutrophils # Seg Neutrophils # Man Lymphocytes # (Manual) APTT POC ABG pH ABG pH POC ABG pCO2 POC ABG pO2 ABG pO2 ABG HCO3 ABG Base Excess ABG Hemoglobin VBG pH Oxyhemoglobin Sodium Potassium Chloride Carbon Dioxide BUN Creatinine Glucose POC Glucose 183 H 329 H 130 H Lactic Acid Calcium AST ALT Alkaline Phosphatase CK-MB (CK-2) CK-MB (CK-2) Rel Index Total Protein Albumin TSH Urine WBC (Auto) Salicylates 05/09/17 05/09/17 05/09/17 06:08 14:06 21:44 WBC RBC Hgb Hct MCV MCH RDW Plt Count Lymph % (Auto) [place] % (Auto) Eos % (Auto) [place] # Seg Neutrophils % Seg Neuts % (Manual) Lymphocytes % (Manual) Seg Neutrophils # Seg Neutrophils # Man Lymphocytes # (Manual) APTT POC ABG pH ABG pH POC ABG pCO2 POC ABG pO2 ABG pO2 ABG HCO3 ABG Base Excess ABG Hemoglobin VBG pH Oxyhemoglobin Sodium Potassium Chloride Carbon Dioxide BUN Creatinine Glucose POC Glucose 241 H 251 H 198 H Lactic Acid Calcium AST ALT Alkaline Phosphatase CK-MB (CK-2) CK-MB (CK-2) Rel Index Total Protein Albumin TSH Urine WBC (Auto) Salicylates 05/10/17 05/10/17 05/10/17 05:18 14:44 21:53 WBC RBC Hgb Hct MCV MCH RDW Plt Count Lymph % (Auto) [place] % (Auto) Eos % (Auto) [place] # Seg Neutrophils % Seg Neuts % (Manual) Lymphocytes % (Manual) Seg Neutrophils # Seg Neutrophils # Man Lymphocytes # (Manual) APTT POC ABG pH ABG pH POC ABG pCO2 POC ABG pO2 ABG pO2 ABG HCO3 ABG Base Excess ABG Hemoglobin VBG pH Oxyhemoglobin Sodium Potassium Chloride Carbon Dioxide BUN Creatinine Glucose POC Glucose 166 H 224 H 171 H Lactic Acid Calcium AST ALT Alkaline Phosphatase CK-MB (CK-2) CK-MB (CK-2) Rel Index Total Protein Albumin TSH Urine WBC (Auto) Salicylates 05/11/17 05/11/17 05/11/17 05:45 13:44 21:42 WBC RBC Hgb Hct MCV MCH RDW Plt Count Lymph % (Auto) [place] % (Auto) Eos % (Auto) [place] # Seg Neutrophils % Seg Neuts % (Manual) Lymphocytes % (Manual) Seg Neutrophils # Seg Neutrophils # Man Lymphocytes # (Manual) APTT POC ABG pH ABG pH POC ABG pCO2 POC ABG pO2 ABG pO2 ABG HCO3 ABG Base Excess ABG Hemoglobin VBG pH Oxyhemoglobin Sodium Potassium Chloride Carbon Dioxide BUN Creatinine Glucose POC Glucose 199 H 150 H 163 H Lactic Acid Calcium AST ALT Alkaline Phosphatase CK-MB (CK-2) CK-MB (CK-2) Rel Index Total Protein Albumin TSH Urine WBC (Auto) Salicylates 05/12/17 05/12/17 05/12/17 06:03 13:59 21:22 WBC RBC Hgb Hct MCV MCH RDW Plt Count Lymph % (Auto) [place] % (Auto) Eos % (Auto) [place] # Seg Neutrophils % Seg Neuts % (Manual) Lymphocytes % (Manual) Seg Neutrophils # Seg Neutrophils # Man Lymphocytes # (Manual) APTT POC ABG pH ABG pH POC ABG pCO2 POC ABG pO2 ABG pO2 ABG HCO3 ABG Base Excess ABG Hemoglobin VBG pH Oxyhemoglobin Sodium Potassium Chloride Carbon Dioxide BUN Creatinine Glucose POC Glucose 147 H 243 H 116 H Lactic Acid Calcium AST ALT Alkaline Phosphatase CK-MB (CK-2) CK-MB (CK-2) Rel Index Total Protein Albumin TSH Urine WBC (Auto) Salicylates 05/13/17 05/13/17 05/13/17 05:28 13:49 21:29 WBC RBC Hgb Hct MCV MCH RDW Plt Count Lymph % (Auto) [place] % (Auto) Eos % (Auto) [place] # Seg Neutrophils % Seg Neuts % (Manual) Lymphocytes % (Manual) Seg Neutrophils # Seg Neutrophils # Man Lymphocytes # (Manual) APTT POC ABG pH ABG pH POC ABG pCO2 POC ABG pO2 ABG pO2 ABG HCO3 ABG Base Excess ABG Hemoglobin VBG pH Oxyhemoglobin Sodium Potassium Chloride Carbon Dioxide BUN Creatinine Glucose POC Glucose 213 H 224 H 379 H Lactic Acid Calcium AST ALT Alkaline Phosphatase CK-MB (CK-2) CK-MB (CK-2) Rel Index Total Protein Albumin TSH Urine WBC (Auto) Salicylates 05/14/17 05/14/17 05/14/17 05:17 13:35 21:23 WBC RBC Hgb Hct MCV MCH RDW Plt Count Lymph % (Auto) [place] % (Auto) Eos % (Auto) [place] # Seg Neutrophils % Seg Neuts % (Manual) Lymphocytes % (Manual) Seg Neutrophils # Seg Neutrophils # Man Lymphocytes # (Manual) APTT POC ABG pH ABG pH POC ABG pCO2 POC ABG pO2 ABG pO2 ABG HCO3 ABG Base Excess ABG Hemoglobin VBG pH Oxyhemoglobin Sodium Potassium Chloride Carbon Dioxide BUN Creatinine Glucose POC Glucose 234 H 242 H 218 H Lactic Acid Calcium AST ALT Alkaline Phosphatase CK-MB (CK-2) CK-MB (CK-2) Rel Index Total Protein Albumin TSH Urine WBC (Auto) Salicylates 05/15/17 05/15/17 05/16/17 04:58 13:53 01:34 WBC RBC Hgb Hct MCV MCH RDW Plt Count Lymph % (Auto) [place] % (Auto) Eos % (Auto) [place] # Seg Neutrophils % Seg Neuts % (Manual) Lymphocytes % (Manual) Seg Neutrophils # Seg Neutrophils # Man Lymphocytes # (Manual) APTT POC ABG pH ABG pH POC ABG pCO2 POC ABG pO2 ABG pO2 ABG HCO3 ABG Base Excess ABG Hemoglobin VBG pH Oxyhemoglobin Sodium Potassium Chloride Carbon Dioxide BUN Creatinine Glucose POC Glucose 310 H 193 H 263 H Lactic Acid Calcium AST ALT Alkaline Phosphatase CK-MB (CK-2) CK-MB (CK-2) Rel Index Total Protein Albumin TSH Urine WBC (Auto) Salicylates 05/16/17 05/16/17 05/16/17 06:03 14:36 21:59 WBC RBC Hgb Hct MCV MCH RDW Plt Count Lymph % (Auto) [place] % (Auto) Eos % (Auto) [place] # Seg Neutrophils % Seg Neuts % (Manual) Lymphocytes % (Manual) Seg Neutrophils # Seg Neutrophils # Man Lymphocytes # (Manual) APTT POC ABG pH ABG pH POC ABG pCO2 POC ABG pO2 ABG pO2 ABG HCO3 ABG Base Excess ABG Hemoglobin VBG pH Oxyhemoglobin Sodium Potassium Chloride Carbon Dioxide BUN Creatinine Glucose POC Glucose 330 H 272 H 198 H Lactic Acid Calcium AST ALT Alkaline Phosphatase CK-MB (CK-2) CK-MB (CK-2) Rel Index Total Protein Albumin TSH Urine WBC (Auto) Salicylates 05/17/17 05/17/17 05/18/17 05:48 13:59 05:27 WBC RBC Hgb Hct MCV MCH RDW Plt Count Lymph % (Auto) [place] % (Auto) Eos % (Auto) [place] # Seg Neutrophils % Seg Neuts % (Manual) Lymphocytes % (Manual) Seg Neutrophils # Seg Neutrophils # Man Lymphocytes # (Manual) APTT POC ABG pH ABG pH POC ABG pCO2 POC ABG pO2 ABG pO2 ABG HCO3 ABG Base Excess ABG Hemoglobin VBG pH Oxyhemoglobin Sodium Potassium Chloride Carbon Dioxide BUN Creatinine Glucose POC Glucose 204 H 229 H 152 H Lactic Acid Calcium AST ALT Alkaline Phosphatase CK-MB (CK-2) CK-MB (CK-2) Rel Index Total Protein Albumin TSH Urine WBC (Auto) Salicylates 0205/18/17 05/19/17 14:16 21:27 04:59 WBC RBC Hgb Hct MCV MCH RDW Plt Count Lymph % (Auto) [place] % (Auto) Eos % (Auto) [place] # Seg Neutrophils % Seg Neuts % (Manual) Lymphocytes % (Manual) Seg Neutrophils # Seg Neutrophils # Man Lymphocytes # (Manual) APTT POC ABG pH ABG pH POC ABG pCO2 POC ABG pO2 ABG pO2 ABG HCO3 ABG Base Excess ABG Hemoglobin VBG pH Oxyhemoglobin Sodium Potassium Chloride Carbon Dioxide BUN Creatinine Glucose POC Glucose 217 H 202 H 131 H Lactic Acid Calcium AST ALT Alkaline Phosphatase CK-MB (CK-2) CK-MB (CK-2) Rel Index Total Protein Albumin TSH Urine WBC (Auto) Salicylates 05/19/17 05/20/17 05/20/17 14:57 00:11 05:45 WBC RBC Hgb Hct MCV MCH RDW Plt Count Lymph % (Auto) [place] % (Auto) Eos % (Auto) [place] # Seg Neutrophils % Seg Neuts % (Manual) Lymphocytes % (Manual) Seg Neutrophils # Seg Neutrophils # Man Lymphocytes # (Manual) APTT POC ABG pH ABG pH POC ABG pCO2 POC ABG pO2 ABG pO2 ABG HCO3 ABG Base Excess ABG Hemoglobin VBG pH Oxyhemoglobin Sodium Potassium Chloride Carbon Dioxide BUN Creatinine Glucose POC Glucose 216 H 197 H 195 H Lactic Acid Calcium AST ALT Alkaline Phosphatase CK-MB (CK-2) CK-MB (CK-2) Rel Index Total Protein Albumin TSH Urine WBC (Auto) Salicylates 05/20/17 05/20/17 05/21/17 13:29 22:11 05:43 WBC RBC Hgb Hct MCV MCH RDW Plt Count Lymph % (Auto) [place] % (Auto) Eos % (Auto) [place] # Seg Neutrophils % Seg Neuts % (Manual) Lymphocytes % (Manual) Seg Neutrophils # Seg Neutrophils # Man Lymphocytes # (Manual) APTT POC ABG pH ABG pH POC ABG pCO2 POC ABG pO2 ABG pO2 ABG HCO3 ABG Base Excess ABG Hemoglobin VBG pH Oxyhemoglobin Sodium Potassium Chloride Carbon Dioxide BUN Creatinine Glucose POC Glucose 138 H 242 H 228 H Lactic Acid Calcium AST ALT Alkaline Phosphatase CK-MB (CK-2) CK-MB (CK-2) Rel Index Total Protein Albumin TSH Urine WBC (Auto) Salicylates 05/21/17 05/21/17 05/22/17 14:06 21:49 05:31 WBC RBC Hgb Hct MCV MCH RDW Plt Count Lymph % (Auto) [place] % (Auto) Eos % (Auto) [place] # Seg Neutrophils % Seg Neuts % (Manual) Lymphocytes % (Manual) Seg Neutrophils # Seg Neutrophils # Man Lymphocytes # (Manual) APTT POC ABG pH ABG pH POC ABG pCO2 POC ABG pO2 ABG pO2 ABG HCO3 ABG Base Excess ABG Hemoglobin VBG pH Oxyhemoglobin Sodium Potassium Chloride Carbon Dioxide BUN Creatinine Glucose POC Glucose 191 H 166 H 184 H Lactic Acid Calcium AST ALT Alkaline Phosphatase CK-MB (CK-2) CK-MB (CK-2) Rel Index Total Protein Albumin TSH Urine WBC (Auto) Salicylates 05/22/17 05/22/17 05/23/17 14:03 21:45 05:41 WBC RBC Hgb Hct MCV MCH RDW Plt Count Lymph % (Auto) [place] % (Auto) Eos % (Auto) [place] # Seg Neutrophils % Seg Neuts % (Manual) Lymphocytes % (Manual) Seg Neutrophils # Seg Neutrophils # Man Lymphocytes # (Manual) APTT POC ABG pH ABG pH POC ABG pCO2 POC ABG pO2 ABG pO2 ABG HCO3 ABG Base Excess ABG Hemoglobin VBG pH Oxyhemoglobin Sodium Potassium Chloride Carbon Dioxide BUN Creatinine Glucose POC Glucose 206 H 178 H 206 H Lactic Acid Calcium AST ALT Alkaline Phosphatase CK-MB (CK-2) CK-MB (CK-2) Rel Index Total Protein Albumin TSH Urine WBC (Auto) Salicylates 05/23/17 05/23/17 05/24/17 14:09 22:48 05:21 WBC RBC Hgb Hct MCV MCH RDW Plt Count Lymph % (Auto) [place] % (Auto) Eos % (Auto) [place] # Seg Neutrophils % Seg Neuts % (Manual) Lymphocytes % (Manual) Seg Neutrophils # Seg Neutrophils # Man Lymphocytes # (Manual) APTT POC ABG pH ABG pH POC ABG pCO2 POC ABG pO2 ABG pO2 ABG HCO3 ABG Base Excess ABG Hemoglobin VBG pH Oxyhemoglobin Sodium Potassium Chloride Carbon Dioxide BUN Creatinine Glucose POC Glucose 148 H 181 H 162 H Lactic Acid Calcium AST ALT Alkaline Phosphatase CK-MB (CK-2) CK-MB (CK-2) Rel Index Total Protein Albumin TSH Urine WBC (Auto) Salicylates 05/24/17 05/24/17 05/25/17 13:32 21:55 06:49 WBC RBC Hgb Hct MCV MCH RDW Plt Count Lymph % (Auto) [place] % (Auto) Eos % (Auto) [place] # Seg Neutrophils % Seg Neuts % (Manual) Lymphocytes % (Manual) Seg Neutrophils # Seg Neutrophils # Man Lymphocytes # (Manual) APTT POC ABG pH ABG pH POC ABG pCO2 POC ABG pO2 ABG pO2 ABG HCO3 ABG Base Excess ABG Hemoglobin VBG pH Oxyhemoglobin Sodium Potassium Chloride Carbon Dioxide BUN Creatinine Glucose POC Glucose 216 H 144 H 151 H Lactic Acid Calcium AST ALT Alkaline Phosphatase CK-MB (CK-2) CK-MB (CK-2) Rel Index Total Protein Albumin TSH Urine WBC (Auto) Salicylates 05/25/17 05/25/17 05/26/17 15:32 21:58 05:46 WBC RBC Hgb Hct MCV MCH RDW Plt Count Lymph % (Auto) [place] % (Auto) Eos % (Auto) [place] # Seg Neutrophils % Seg Neuts % (Manual) Lymphocytes % (Manual) Seg Neutrophils # Seg Neutrophils # Man Lymphocytes # (Manual) APTT POC ABG pH ABG pH POC ABG pCO2 POC ABG pO2 ABG pO2 ABG HCO3 ABG Base Excess ABG Hemoglobin VBG pH Oxyhemoglobin Sodium Potassium Chloride Carbon Dioxide BUN Creatinine Glucose POC Glucose 136 H 160 H 225 H Lactic Acid Calcium AST ALT Alkaline Phosphatase CK-MB (CK-2) CK-MB (CK-2) Rel Index Total Protein Albumin TSH Urine WBC (Auto) Salicylates 05/26/17 05/27/17 05/27/17 22:32 05:52 14:47 WBC RBC Hgb Hct MCV MCH RDW Plt Count Lymph % (Auto) [place] % (Auto) Eos % (Auto) [place] # Seg Neutrophils % Seg Neuts % (Manual) Lymphocytes % (Manual) Seg Neutrophils # Seg Neutrophils # Man Lymphocytes # (Manual) APTT POC ABG pH ABG pH POC ABG pCO2 POC ABG pO2 ABG pO2 ABG HCO3 ABG Base Excess ABG Hemoglobin VBG pH Oxyhemoglobin Sodium Potassium Chloride Carbon Dioxide BUN Creatinine Glucose POC Glucose 161 H 197 H 117 H Lactic Acid Calcium AST ALT Alkaline Phosphatase CK-MB (CK-2) CK-MB (CK-2) Rel Index Total Protein Albumin TSH Urine WBC (Auto) Salicylates 05/27/17 05/28/17 05/28/17 21:49 05:54 06:49 WBC RBC Hgb Hct MCV MCH RDW Plt Count Lymph % (Auto) [place] % (Auto) Eos % (Auto) [place] # Seg Neutrophils % Seg Neuts % (Manual) Lymphocytes % (Manual) Seg Neutrophils # Seg Neutrophils # Man Lymphocytes # (Manual) APTT POC ABG pH ABG pH POC ABG pCO2 POC ABG pO2 ABG pO2 ABG HCO3 ABG Base Excess ABG Hemoglobin VBG pH Oxyhemoglobin Sodium Potassium Chloride Carbon Dioxide BUN Creatinine Glucose POC Glucose 148 H 60 L 59 L Lactic Acid Calcium AST ALT Alkaline Phosphatase CK-MB (CK-2) CK-MB (CK-2) Rel Index Total Protein Albumin TSH Urine WBC (Auto) Salicylates 05/28/17 05/28/17 05/28/17 14:32 16:04 21:43 WBC RBC Hgb Hct MCV MCH RDW Plt Count Lymph % (Auto) [place] % (Auto) Eos % (Auto) [place] # Seg Neutrophils % Seg Neuts % (Manual) Lymphocytes % (Manual) Seg Neutrophils # Seg Neutrophils # Man Lymphocytes # (Manual) APTT POC ABG pH ABG pH POC ABG pCO2 POC ABG pO2 ABG pO2 ABG HCO3 ABG Base Excess ABG Hemoglobin VBG pH Oxyhemoglobin Sodium Potassium Chloride Carbon Dioxide BUN Creatinine Glucose POC Glucose 55 L 109 H 235 H Lactic Acid Calcium AST ALT Alkaline Phosphatase CK-MB (CK-2) CK-MB (CK-2) Rel Index Total Protein Albumin TSH Urine WBC (Auto) Salicylates 05/29/17 05/29/17 05/29/17 06:14 13:23 22:46 WBC RBC Hgb Hct MCV MCH RDW Plt Count Lymph % (Auto) [place] % (Auto) Eos % (Auto) [place] # Seg Neutrophils % Seg Neuts % (Manual) Lymphocytes % (Manual) Seg Neutrophils # Seg Neutrophils # Man Lymphocytes # (Manual) APTT POC ABG pH ABG pH POC ABG pCO2 POC ABG pO2 ABG pO2 ABG HCO3 ABG Base Excess ABG Hemoglobin VBG pH Oxyhemoglobin Sodium Potassium Chloride Carbon Dioxide BUN Creatinine Glucose POC Glucose 260 H 173 H 151 H Lactic Acid Calcium AST ALT Alkaline Phosphatase CK-MB (CK-2) CK-MB (CK-2) Rel Index Total Protein Albumin TSH Urine WBC (Auto) Salicylates 05/30/17 05/30/17 05/31/17 05:20 13:56 14:56 WBC RBC Hgb Hct MCV MCH RDW Plt Count Lymph % (Auto) [place] % (Auto) Eos % (Auto) [place] # Seg Neutrophils % Seg Neuts % (Manual) Lymphocytes % (Manual) Seg Neutrophils # Seg Neutrophils # Man Lymphocytes # (Manual) APTT POC ABG pH ABG pH POC ABG pCO2 POC ABG pO2 ABG pO2 ABG HCO3 ABG Base Excess ABG Hemoglobin VBG pH Oxyhemoglobin Sodium Potassium Chloride Carbon Dioxide BUN Creatinine Glucose POC Glucose 250 H 187 H 139 H Lactic Acid Calcium AST ALT Alkaline Phosphatase CK-MB (CK-2) CK-MB (CK-2) Rel Index Total Protein Albumin TSH Urine WBC (Auto) Salicylates 06/01/17 06/01/17 06/01/17 05:37 13:10 21:34 WBC RBC Hgb Hct MCV MCH RDW Plt Count Lymph % (Auto) [place] % (Auto) Eos % (Auto) [place] # Seg Neutrophils % Seg Neuts % (Manual) Lymphocytes % (Manual) Seg Neutrophils # Seg Neutrophils # Man Lymphocytes # (Manual) APTT POC ABG pH ABG pH POC ABG pCO2 POC ABG pO2 ABG pO2 ABG HCO3 ABG Base Excess ABG Hemoglobin VBG pH Oxyhemoglobin Sodium Potassium Chloride Carbon Dioxide BUN Creatinine Glucose POC Glucose 207 H 136 H 109 H Lactic Acid Calcium AST ALT Alkaline Phosphatase CK-MB (CK-2) CK-MB (CK-2) Rel Index Total Protein Albumin TSH Urine WBC (Auto) Salicylates 06/02/17 06/02/17 06/03/17 05:15 15:44 00:49 WBC RBC Hgb Hct MCV MCH RDW Plt Count Lymph % (Auto) [place] % (Auto) Eos % (Auto) [place] # Seg Neutrophils % Seg Neuts % (Manual) Lymphocytes % (Manual) Seg Neutrophils # Seg Neutrophils # Man Lymphocytes # (Manual) APTT POC ABG pH ABG pH POC ABG pCO2 POC ABG pO2 ABG pO2 ABG HCO3 ABG Base Excess ABG Hemoglobin VBG pH Oxyhemoglobin Sodium Potassium Chloride Carbon Dioxide BUN Creatinine Glucose POC Glucose 121 H 229 H 134 H Lactic Acid Calcium AST ALT Alkaline Phosphatase CK-MB (CK-2) CK-MB (CK-2) Rel Index Total Protein Albumin TSH Urine WBC (Auto) Salicylates 06/03/17 06/03/17 06/04/17 13:46 22:42 05:37 WBC RBC Hgb Hct MCV MCH RDW Plt Count Lymph % (Auto) [place] % (Auto) Eos % (Auto) [place] # Seg Neutrophils % Seg Neuts % (Manual) Lymphocytes % (Manual) Seg Neutrophils # Seg Neutrophils # Man Lymphocytes # (Manual) APTT POC ABG pH ABG pH POC ABG pCO2 POC ABG pO2 ABG pO2 ABG HCO3 ABG Base Excess ABG Hemoglobin VBG pH Oxyhemoglobin Sodium Potassium Chloride Carbon Dioxide BUN Creatinine Glucose POC Glucose 230 H 158 H 144 H Lactic Acid Calcium AST ALT Alkaline Phosphatase CK-MB (CK-2) CK-MB (CK-2) Rel Index Total Protein Albumin TSH Urine WBC (Auto) Salicylates 06/04/17 06/04/17 06/04/17 14:04 22:17 23:18 WBC RBC Hgb Hct MCV MCH RDW Plt Count Lymph % (Auto) [place] % (Auto) Eos % (Auto) [place] # Seg Neutrophils % Seg Neuts % (Manual) Lymphocytes % (Manual) Seg Neutrophils # Seg Neutrophils # Man Lymphocytes # (Manual) APTT POC ABG pH ABG pH POC ABG pCO2 POC ABG pO2 ABG pO2 ABG HCO3 ABG Base Excess ABG Hemoglobin VBG pH Oxyhemoglobin Sodium Potassium Chloride Carbon Dioxide BUN Creatinine Glucose POC Glucose 168 H 53 L 121 H Lactic Acid Calcium AST ALT Alkaline Phosphatase CK-MB (CK-2) CK-MB (CK-2) Rel Index Total Protein Albumin TSH Urine WBC (Auto) Salicylates 06/05/17 06/05/17 06/05/17 05:27 14:19 21:35 WBC RBC Hgb Hct MCV MCH RDW Plt Count Lymph % (Auto) [place] % (Auto) Eos % (Auto) [place] # Seg Neutrophils % Seg Neuts % (Manual) Lymphocytes % (Manual) Seg Neutrophils # Seg Neutrophils # Man Lymphocytes # (Manual) APTT POC ABG pH ABG pH POC ABG pCO2 POC ABG pO2 ABG pO2 ABG HCO3 ABG Base Excess ABG Hemoglobin VBG pH Oxyhemoglobin Sodium Potassium Chloride Carbon Dioxide BUN Creatinine Glucose POC Glucose 157 H 130 H 143 H Lactic Acid Calcium AST ALT Alkaline Phosphatase CK-MB (CK-2) CK-MB (CK-2) Rel Index Total Protein Albumin TSH Urine WBC (Auto) Salicylates 06/06/17 05:44 WBC RBC Hgb Hct MCV MCH RDW Plt Count Lymph % (Auto) [place] % (Auto) Eos % (Auto) [place] # Seg Neutrophils % Seg Neuts % (Manual) Lymphocytes % (Manual) Seg Neutrophils # Seg Neutrophils # Man Lymphocytes # (Manual) APTT POC ABG pH ABG pH POC ABG pCO2 POC ABG pO2 ABG pO2 ABG HCO3 ABG Base Excess ABG Hemoglobin VBG pH Oxyhemoglobin Sodium Potassium Chloride Carbon Dioxide BUN Creatinine Glucose POC Glucose 184 H Lactic Acid Calcium AST ALT Alkaline Phosphatase CK-MB (CK-2) CK-MB (CK-2) Rel Index Total Protein Albumin TSH Urine WBC (Auto) Salicylates
[2017-06-06] MEDS: LEVEMIR (NF) SUB-Q SCH (09:44)
[2017-06-06] MEDS: HEPARIN SUB-Q SCH ×2 (09:44→22:12)
[2017-06-06] MEDS: PEPCID PO SCH ×2 (09:44→22:12)
[2017-06-07] MEDS: HumuLIN R SUB-Q SCH ×3 (08:59→22:00)
[2017-06-07] MEDS: HEPARIN SUB-Q SCH ×2 (10:49→22:33)
[2017-06-07] MEDS: LEVEMIR (NF) SUB-Q SCH (10:49)
[2017-06-07] MEDS: PEPCID PO SCH ×2 (10:50→22:34)
[2017-06-08] MEDS: HumuLIN R SUB-Q SCH ×3 (06:43→23:01)
--- NOTE | 2017-06-08 10:01 | Progress Note ---
Assessment and Plan 51 y/o male found down, concern for sepsis and now encephalopathic requiring mechanical ventilation. Unfortunately no new recommendations in this sad case. 1. continue supportive care 2. 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 I am aware that he is an AND but trach will not fix this problem and is not in my professional opinion the right thing to do for this patient. Most likely he will never be weaned from the vent and will remain in a persistent vegatative state. 3. Overall prognosis continues to be poor. 4. Will not check labs 5. Vitals should be qshift 6. This patient's possibility of awakening from this persistent vegatative is unlikely. The current status is that there has been paper work filed to obtain guardianship so that end of life decisions can be made. Supportive care is reasonable but checking daily labs and doing other invasive things to this patient I do not feel is morally and ethically appropriate. 7. Currently patient does not have IV access and is not requiring any medical therapy. Will not place another one at this time. 8. Per [place], went to court 05/03/17 for Guardianship. One has been appointed, awaiting to meet them. Per report, they agree with hospice care, but do not have the authority vs will not authorize withdrawal once at hospice. Subjective Date of service: 06/08/17 Principal diagnosis: Acute respiratory failure,encephalopathy Interval history: No acute events. Still no change in mental state. Day #150 of endotracheal intubation Objective Vital Signs - 12hr 06/08/17 06/08/17 06/08/17 00:00 02:00 03:40 Temperature 98.0 F Pulse Rate 65 66 Pulse Rate [ 66 Left] Respiratory 12 12 12 Rate Blood Pressure 99/69 90/65 90/65 O2 Sat by Pulse 100 100 100 Oximetry 06/08/17 06/08/17 06/08/17 04:00 06:00 08:00 Temperature 98.6 F Pulse Rate 64 64 Pulse Rate [ Left] Respiratory 12 12 Rate Blood Pressure 90/65 90/65 O2 Sat by Pulse 98 100 Oximetry 06/08/17 08:55 Temperature Pulse Rate 64 Pulse Rate [ Left] Respiratory Rate Blood Pressure 90/65 O2 Sat by Pulse 99 Oximetry Constitutional: no acute distress, other (on vent) Eyes: non-icteric ENT: oropharynx moist, other (ETT in position) Neck: supple Effort: normal Ascultation: Bilateral: clear, diminished breath sounds Cardiovascular: regular rate and rhythm (no mrg) Gastrointestinal: normoactive bowel sounds, soft, non-tender, non-distended Integumentary: normal Extremities: no cyanosis, no edema, pink and warm Neurologic: pupils equal and round, other (opens eyes spontaneously, but no meaningful responce to stimuli) Psychiatric: other (unable to obtain) CBC and BMP: 04/28/17 05:10 04/28/17 05:10 ABG, PT/INR, D-dimer: ABG POC ABG pH 7.442 (7.35-7.45) 01/31/17 18:55 ABG pH 7.420 pH Units (7.350-7.450) 01/17/17 04:35 POC ABG pCO2 32.8 (35-45) L 01/31/17 18:55 ABG pCO2 34.5 mm Hg 01/17/17 04:35 POC ABG pO2 82 (80-105) 01/31/17 18:55 ABG pO2 160.3 mm Hg (80.0-90.0) H 01/17/17 04:35 POC ABG HCO3 22.4 01/31/17 18:55 POC ABG Total CO2 23 01/31/17 18:55 POC ABG O2 Sat 97 01/31/17 18:55 ABG O2 Saturation 99.0 % (95.0-99.0) 01/17/17 04:35 PT/INR, D-dimer PT 14.1 Sec. (12.2-14.9) 01/17/17 04:10 INR 1.04 (0.87-1.13) 01/17/17 04:10 Abnormal lab findings: Abnormal Labs 01/09/17 01/09/17 01/09/17 10:16 10:16 10:16 WBC RBC Hgb 9.7 L Hct 28.4 L MCV 76 L MCH 26 L RDW 17.2 H Plt Count 448 H Lymph % (Auto) [place] % (Auto) Eos % (Auto) [place] # Seg Neutrophils % 79.5 H Seg Neuts % (Manual) Lymphocytes % (Manual) Seg Neutrophils # Seg Neutrophils # Man Lymphocytes # (Manual) APTT 39.6 H POC ABG pH ABG pH POC ABG pCO2 POC ABG pO2 ABG pO2 ABG HCO3 ABG Base Excess ABG Hemoglobin VBG pH Oxyhemoglobin Sodium 132 L Potassium Chloride 96.7 L Carbon Dioxide 21 L BUN 34 H Creatinine Glucose POC Glucose Lactic Acid Calcium 8.3 L AST ALT Alkaline Phosphatase 151 H CK-MB (CK-2) 7.1 H CK-MB (CK-2) Rel Index 5.2 H Total Protein Albumin 3.3 L TSH Urine WBC (Auto) Salicylates 01/09/17 01/09/17 01/09/17 10:16 10:16 10:16 WBC RBC Hgb Hct MCV MCH RDW Plt Count Lymph % (Auto) [place] % (Auto) Eos % (Auto) [place] # Seg Neutrophils % Seg Neuts % (Manual) Lymphocytes % (Manual) Seg Neutrophils # Seg Neutrophils # Man Lymphocytes # (Manual) APTT POC ABG pH ABG pH POC ABG pCO2 POC ABG pO2 ABG pO2 ABG HCO3 ABG Base Excess ABG Hemoglobin VBG pH 7.284 L Oxyhemoglobin Sodium Potassium Chloride Carbon Dioxide BUN Creatinine Glucose POC Glucose Lactic Acid Calcium AST ALT Alkaline Phosphatase CK-MB (CK-2) CK-MB (CK-2) Rel Index Total Protein Albumin TSH 52.800 H Urine WBC (Auto) Salicylates < 0.3 L 01/09/17 01/09/17 01/09/17 10:23 11:14 12:49 WBC RBC Hgb Hct MCV MCH RDW Plt Count Lymph % (Auto) [place] % (Auto) Eos % (Auto) [place] # Seg Neutrophils % Seg Neuts % (Manual) Lymphocytes % (Manual) Seg Neutrophils # Seg Neutrophils # Man Lymphocytes # (Manual) APTT POC ABG pH ABG pH POC ABG pCO2 POC ABG pO2 643 H ABG pO2 ABG HCO3 ABG Base Excess ABG Hemoglobin VBG pH Oxyhemoglobin Sodium Potassium Chloride Carbon Dioxide BUN Creatinine Glucose POC Glucose < 40 L Lactic Acid Calcium AST ALT Alkaline Phosphatase CK-MB (CK-2) CK-MB (CK-2) Rel Index Total Protein Albumin TSH Urine WBC (Auto) 61.0 H Salicylates 01/09/17 01/09/17 01/09/17 13:13 14:21 15:09 WBC RBC Hgb Hct MCV MCH RDW Plt Count Lymph % (Auto) [place] % (Auto) Eos % (Auto) [place] # Seg Neutrophils % Seg Neuts % (Manual) Lymphocytes % (Manual) Seg Neutrophils # Seg Neutrophils # Man Lymphocytes # (Manual) APTT POC ABG pH ABG pH POC ABG pCO2 POC ABG pO2 ABG pO2 ABG HCO3 ABG Base Excess ABG Hemoglobin VBG pH Oxyhemoglobin Sodium Potassium Chloride Carbon Dioxide BUN Creatinine Glucose POC Glucose 128 H 65 L 120 H Lactic Acid Calcium AST ALT Alkaline Phosphatase CK-MB (CK-2) CK-MB (CK-2) Rel Index Total Protein Albumin TSH Urine WBC (Auto) Salicylates 01/09/17 01/09/17 01/10/17 16:28 17:14 04:30 WBC 24.1 H RBC 3.38 L Hgb 8.5 L Hct 26.0 L MCV 77 L MCH 25 L RDW 17.9 H Plt Count 474 H Lymph % (Auto) [place] % (Auto) Eos % (Auto) [place] # Seg Neutrophils % Seg Neuts % (Manual) 88.0 H Lymphocytes % (Manual) 4.0 L Seg Neutrophils # Seg Neutrophils # Man 21.2 H Lymphocytes # (Manual) 1.0 L APTT POC ABG pH ABG pH POC ABG pCO2 POC ABG pO2 ABG pO2 ABG HCO3 ABG Base Excess ABG Hemoglobin VBG pH Oxyhemoglobin Sodium Potassium Chloride Carbon Dioxide BUN Creatinine Glucose POC Glucose 44 L 112 H Lactic Acid Calcium AST ALT Alkaline Phosphatase CK-MB (CK-2) CK-MB (CK-2) Rel Index Total Protein Albumin TSH Urine WBC (Auto) Salicylates 01/10/17 01/10/17 01/10/17 04:30 05:41 05:45 WBC RBC Hgb Hct MCV MCH RDW Plt Count Lymph % (Auto) [place] % (Auto) Eos % (Auto) [place] # Seg Neutrophils % Seg Neuts % (Manual) Lymphocytes % (Manual) Seg Neutrophils # Seg Neutrophils # Man Lymphocytes # (Manual) APTT POC ABG pH ABG pH POC ABG pCO2 26.6 L POC ABG pO2 207 H ABG pO2 ABG HCO3 ABG Base Excess ABG Hemoglobin VBG pH Oxyhemoglobin Sodium Potassium Chloride Carbon Dioxide 17 L BUN 27 H Creatinine Glucose POC Glucose 68 L Lactic Acid Calcium 7.5 L AST ALT Alkaline Phosphatase CK-MB (CK-2) CK-MB (CK-2) Rel Index Total Protein Albumin TSH Urine WBC (Auto) Salicylates 01/10/17 01/10/17 01/10/17 07:47 10:50 13:41 WBC RBC Hgb Hct MCV MCH RDW Plt Count Lymph % (Auto) [place] % (Auto) Eos % (Auto) [place] # Seg Neutrophils % Seg Neuts % (Manual) Lymphocytes % (Manual) Seg Neutrophils # Seg Neutrophils # Man Lymphocytes # (Manual) APTT POC ABG pH ABG pH POC ABG pCO2 POC ABG pO2 ABG pO2 ABG HCO3 ABG Base Excess ABG Hemoglobin VBG pH Oxyhemoglobin Sodium Potassium Chloride Carbon Dioxide BUN Creatinine Glucose POC Glucose 148 H 165 H 114 H Lactic Acid Calcium AST ALT Alkaline Phosphatase CK-MB (CK-2) CK-MB (CK-2) Rel Index Total Protein Albumin TSH Urine WBC (Auto) Salicylates 01/10/17 01/10/17 01/10/17 20:20 21:39 23:24 WBC RBC Hgb Hct MCV MCH RDW Plt Count Lymph % (Auto) [place] % (Auto) Eos % (Auto) [place] # Seg Neutrophils % Seg Neuts % (Manual) Lymphocytes % (Manual) Seg Neutrophils # Seg Neutrophils # Man Lymphocytes # (Manual) APTT POC ABG pH ABG pH POC ABG pCO2 POC ABG pO2 ABG pO2 ABG HCO3 ABG Base Excess ABG Hemoglobin VBG pH Oxyhemoglobin Sodium Potassium Chloride Carbon Dioxide BUN Creatinine Glucose POC Glucose 150 H 175 H 155 H Lactic Acid Calcium AST ALT Alkaline Phosphatase CK-MB (CK-2) CK-MB (CK-2) Rel Index Total Protein Albumin TSH Urine WBC (Auto) Salicylates 01/11/17 01/11/17 01/11/17 00:19 04:06 05:20 WBC 15.2 H RBC 3.40 L Hgb 8.9 L Hct 26.3 L MCV 78 L MCH 26 L RDW 18.6 H Plt Count 462 H Lymph % (Auto) 13.2 L [place] % (Auto) Eos % (Auto) [place] # Seg Neutrophils % 80.8 H Seg Neuts % (Manual) Lymphocytes % (Manual) Seg Neutrophils # 12.3 H Seg Neutrophils # Man Lymphocytes # (Manual) APTT POC ABG pH 7.463 H ABG pH POC ABG pCO2 26.2 L POC ABG pO2 185 H ABG pO2 ABG HCO3 ABG Base Excess ABG Hemoglobin VBG pH Oxyhemoglobin Sodium Potassium Chloride Carbon Dioxide BUN Creatinine Glucose POC Glucose 163 H Lactic Acid Calcium AST ALT Alkaline Phosphatase CK-MB (CK-2) CK-MB (CK-2) Rel Index Total Protein Albumin TSH Urine WBC (Auto) Salicylates 01/11/17 01/11/17 01/11/17 05:20 06:21 07:57 WBC RBC Hgb Hct MCV MCH RDW Plt Count Lymph % (Auto) [place] % (Auto) Eos % (Auto) [place] # Seg Neutrophils % Seg Neuts % (Manual) Lymphocytes % (Manual) Seg Neutrophils # Seg Neutrophils # Man Lymphocytes # (Manual) APTT POC ABG pH ABG pH POC ABG pCO2 POC ABG pO2 ABG pO2 ABG HCO3 ABG Base Excess ABG Hemoglobin VBG pH Oxyhemoglobin Sodium Potassium 3.4 L Chloride 111.5 H Carbon Dioxide 17 L BUN Creatinine Glucose 147 H POC Glucose 139 H 188 H Lactic Acid Calcium 8.0 L AST ALT Alkaline Phosphatase CK-MB (CK-2) CK-MB (CK-2) Rel Index Total Protein Albumin TSH Urine WBC (Auto) Salicylates 01/11/17 01/11/17 01/11/17 11:46 16:50 23:15 WBC RBC Hgb Hct MCV MCH RDW Plt Count Lymph % (Auto) [place] % (Auto) Eos % (Auto) [place] # Seg Neutrophils % Seg Neuts % (Manual) Lymphocytes % (Manual) Seg Neutrophils # Seg Neutrophils # Man Lymphocytes # (Manual) APTT POC ABG pH ABG pH POC ABG pCO2 POC ABG pO2 ABG pO2 ABG HCO3 ABG Base Excess ABG Hemoglobin VBG pH Oxyhemoglobin Sodium Potassium Chloride Carbon Dioxide BUN Creatinine Glucose POC Glucose 199 H 235 H 155 H Lactic Acid Calcium AST ALT Alkaline Phosphatase CK-MB (CK-2) CK-MB (CK-2) Rel Index Total Protein Albumin TSH Urine WBC (Auto) Salicylates 01/12/17 01/12/17 01/12/17 05:02 06:56 14:50 WBC RBC Hgb Hct MCV MCH RDW Plt Count Lymph % (Auto) [place] % (Auto) Eos % (Auto) [place] # Seg Neutrophils % Seg Neuts % (Manual) Lymphocytes % (Manual) Seg Neutrophils # Seg Neutrophils # Man Lymphocytes # (Manual) APTT POC ABG pH ABG pH POC ABG pCO2 28.0 L POC ABG pO2 178 H ABG pO2 ABG HCO3 ABG Base Excess ABG Hemoglobin VBG pH Oxyhemoglobin Sodium Potassium Chloride Carbon Dioxide BUN Creatinine Glucose POC Glucose 119 H 164 H Lactic Acid Calcium AST ALT Alkaline Phosphatase CK-MB (CK-2) CK-MB (CK-2) Rel Index Total Protein Albumin TSH Urine WBC (Auto) Salicylates 01/13/17 01/13/17 01/13/17 03:37 03:37 04:26 WBC RBC 3.61 L Hgb 9.3 L Hct 28.0 L MCV 78 L MCH 26 L RDW 18.2 H Plt Count Lymph % (Auto) [place] % (Auto) Eos % (Auto) [place] # Seg Neutrophils % Seg Neuts % (Manual) Lymphocytes % (Manual) Seg Neutrophils # Seg Neutrophils # Man Lymphocytes # (Manual) APTT POC ABG pH 7.485 H ABG pH POC ABG pCO2 25.4 L POC ABG pO2 73 L ABG pO2 ABG HCO3 ABG Base Excess ABG Hemoglobin VBG pH Oxyhemoglobin Sodium Potassium Chloride 112.4 H Carbon Dioxide 19 L BUN Creatinine Glucose 118 H POC Glucose Lactic Acid Calcium 8.0 L AST ALT Alkaline Phosphatase CK-MB (CK-2) CK-MB (CK-2) Rel Index Total Protein Albumin TSH Urine WBC (Auto) Salicylates 01/13/17 01/13/17 01/13/17 06:15 11:50 17:31 WBC RBC Hgb Hct MCV MCH RDW Plt Count Lymph % (Auto) [place] % (Auto) Eos % (Auto) [place] # Seg Neutrophils % Seg Neuts % (Manual) Lymphocytes % (Manual) Seg Neutrophils # Seg Neutrophils # Man Lymphocytes # (Manual) APTT POC ABG pH ABG pH POC ABG pCO2 POC ABG pO2 ABG pO2 ABG HCO3 ABG Base Excess ABG Hemoglobin VBG pH Oxyhemoglobin Sodium Potassium Chloride Carbon Dioxide BUN Creatinine Glucose POC Glucose 116 H 171 H 203 H Lactic Acid Calcium AST ALT Alkaline Phosphatase CK-MB (CK-2) CK-MB (CK-2) Rel Index Total Protein Albumin TSH Urine WBC (Auto) Salicylates 01/14/17 01/14/17 01/14/17 00:02 04:50 04:50 WBC RBC 3.32 L Hgb 8.5 L Hct 26.1 L MCV 79 L MCH 26 L RDW 18.2 H Plt Count Lymph % (Auto) [place] % (Auto) 9.0 H Eos % (Auto) [place] # Seg Neutrophils % Seg Neuts % (Manual) Lymphocytes % (Manual) Seg Neutrophils # Seg Neutrophils # Man Lymphocytes # (Manual) APTT POC ABG pH ABG pH POC ABG pCO2 POC ABG pO2 ABG pO2 ABG HCO3 ABG Base Excess ABG Hemoglobin VBG pH Oxyhemoglobin Sodium Potassium Chloride 112.5 H Carbon Dioxide BUN Creatinine Glucose 149 H POC Glucose 157 H Lactic Acid Calcium 8.1 L AST ALT Alkaline Phosphatase CK-MB (CK-2) CK-MB (CK-2) Rel Index Total Protein Albumin TSH Urine WBC (Auto) Salicylates 01/14/17 01/14/17 01/14/17 05:10 11:27 14:07 WBC RBC Hgb Hct MCV MCH RDW Plt Count Lymph % (Auto) [place] % (Auto) Eos % (Auto) [place] # Seg Neutrophils % Seg Neuts % (Manual) Lymphocytes % (Manual) Seg Neutrophils # Seg Neutrophils # Man Lymphocytes # (Manual) APTT POC ABG pH ABG pH POC ABG pCO2 POC ABG pO2 ABG pO2 ABG HCO3 ABG Base Excess ABG Hemoglobin VBG pH Oxyhemoglobin Sodium Potassium Chloride Carbon Dioxide BUN Creatinine Glucose POC Glucose 176 H 147 H Lactic Acid Calcium AST ALT Alkaline Phosphatase CK-MB (CK-2) CK-MB (CK-2) Rel Index Total Protein Albumin TSH Urine WBC (Auto) 53.0 H Salicylates 01/14/17 01/15/17 01/15/17 16:52 00:04 05:26 WBC RBC Hgb Hct MCV MCH RDW Plt Count Lymph % (Auto) [place] % (Auto) Eos % (Auto) [place] # Seg Neutrophils % Seg Neuts % (Manual) Lymphocytes % (Manual) Seg Neutrophils # Seg Neutrophils # Man Lymphocytes # (Manual) APTT POC ABG pH ABG pH POC ABG pCO2 POC ABG pO2 ABG pO2 ABG HCO3 ABG Base Excess ABG Hemoglobin VBG pH Oxyhemoglobin Sodium Potassium Chloride Carbon Dioxide BUN Creatinine Glucose POC Glucose 131 H 193 H 215 H Lactic Acid Calcium AST ALT Alkaline Phosphatase CK-MB (CK-2) CK-MB (CK-2) Rel Index Total Protein Albumin TSH Urine WBC (Auto) Salicylates 01/15/17 01/15/17 01/15/17 11:49 17:47 21:33 WBC RBC Hgb Hct MCV MCH RDW Plt Count Lymph % (Auto) [place] % (Auto) Eos % (Auto) [place] # Seg Neutrophils % Seg Neuts % (Manual) Lymphocytes % (Manual) Seg Neutrophils # Seg Neutrophils # Man Lymphocytes # (Manual) APTT POC ABG pH ABG pH POC ABG pCO2 POC ABG pO2 ABG pO2 ABG HCO3 ABG Base Excess ABG Hemoglobin VBG pH Oxyhemoglobin Sodium Potassium Chloride Carbon Dioxide BUN Creatinine Glucose POC Glucose 121 H 211 H 275 H Lactic Acid Calcium AST ALT Alkaline Phosphatase CK-MB (CK-2) CK-MB (CK-2) Rel Index Total Protein Albumin TSH Urine WBC (Auto) Salicylates 01/16/17 01/16/17 01/16/17 04:30 05:28 13:45 WBC RBC Hgb Hct MCV MCH RDW Plt Count Lymph % (Auto) [place] % (Auto) Eos % (Auto) [place] # Seg Neutrophils % Seg Neuts % (Manual) Lymphocytes % (Manual) Seg Neutrophils # Seg Neutrophils # Man Lymphocytes # (Manual) APTT POC ABG pH ABG pH 7.457 H POC ABG pCO2 POC ABG pO2 ABG pO2 55.1 L ABG HCO3 19.4 L ABG Base Excess -4.0 L ABG Hemoglobin 6.8 L VBG pH Oxyhemoglobin 94.9 L Sodium Potassium Chloride Carbon Dioxide BUN Creatinine Glucose POC Glucose 271 H 236 H Lactic Acid Calcium AST ALT Alkaline Phosphatase CK-MB (CK-2) CK-MB (CK-2) Rel Index Total Protein Albumin TSH Urine WBC (Auto) Salicylates 01/16/17 01/17/17 01/17/17 21:39 04:10 04:10 WBC 4.4 L RBC 2.98 L Hgb 7.7 L Hct 23.3 L MCV 78 L MCH 26 L RDW 18.1 H Plt Count Lymph % (Auto) [place] % (Auto) Eos % (Auto) [place] # Seg Neutrophils % Seg Neuts % (Manual) Lymphocytes % (Manual) Seg Neutrophils # Seg Neutrophils # Man Lymphocytes # (Manual) APTT POC ABG pH ABG pH POC ABG pCO2 POC ABG pO2 ABG pO2 ABG HCO3 ABG Base Excess ABG Hemoglobin VBG pH Oxyhemoglobin Sodium Potassium 3.3 L Chloride 108.7 H Carbon Dioxide 20 L BUN 8 L Creatinine Glucose 202 H POC Glucose 258 H Lactic Acid Calcium 7.6 L AST ALT Alkaline Phosphatase CK-MB (CK-2) CK-MB (CK-2) Rel Index Total Protein Albumin TSH Urine WBC (Auto) Salicylates 01/17/17 01/17/17 01/17/17 04:35 12:23 16:01 WBC RBC Hgb Hct MCV MCH RDW Plt Count Lymph % (Auto) [place] % (Auto) Eos % (Auto) [place] # Seg Neutrophils % Seg Neuts % (Manual) Lymphocytes % (Manual) Seg Neutrophils # Seg Neutrophils # Man Lymphocytes # (Manual) APTT POC ABG pH ABG pH POC ABG pCO2 POC ABG pO2 ABG pO2 160.3 H ABG HCO3 ABG Base Excess -2.3 L ABG Hemoglobin 7.9 L VBG pH Oxyhemoglobin Sodium Potassium Chloride Carbon Dioxide BUN Creatinine Glucose POC Glucose 321 H 239 H Lactic Acid Calcium AST ALT Alkaline Phosphatase CK-MB (CK-2) CK-MB (CK-2) Rel Index Total Protein Albumin TSH Urine WBC (Auto) Salicylates 01/18/17 01/18/17 01/18/17 05:07 12:09 17:54 WBC RBC Hgb Hct MCV MCH RDW Plt Count Lymph % (Auto) [place] % (Auto) Eos % (Auto) [place] # Seg Neutrophils % Seg Neuts % (Manual) Lymphocytes % (Manual) Seg Neutrophils # Seg Neutrophils # Man Lymphocytes # (Manual) APTT POC ABG pH ABG pH POC ABG pCO2 POC ABG pO2 ABG pO2 ABG HCO3 ABG Base Excess ABG Hemoglobin VBG pH Oxyhemoglobin Sodium Potassium Chloride Carbon Dioxide BUN Creatinine Glucose POC Glucose 155 H 203 H 132 H Lactic Acid Calcium AST ALT Alkaline Phosphatase CK-MB (CK-2) CK-MB (CK-2) Rel Index Total Protein Albumin TSH Urine WBC (Auto) Salicylates 01/18/17 01/19/17 01/19/17 23:43 04:28 12:11 WBC RBC Hgb Hct MCV MCH RDW Plt Count Lymph % (Auto) [place] % (Auto) Eos % (Auto) [place] # Seg Neutrophils % Seg Neuts % (Manual) Lymphocytes % (Manual) Seg Neutrophils # Seg Neutrophils # Man Lymphocytes # (Manual) APTT POC ABG pH ABG pH POC ABG pCO2 POC ABG pO2 ABG pO2 ABG HCO3 ABG Base Excess ABG Hemoglobin VBG pH Oxyhemoglobin Sodium Potassium Chloride Carbon Dioxide BUN Creatinine Glucose POC Glucose 125 H 182 H 153 H Lactic Acid Calcium AST ALT Alkaline Phosphatase CK-MB (CK-2) CK-MB (CK-2) Rel Index Total Protein Albumin TSH Urine WBC (Auto) Salicylates 01/19/17 01/20/17 01/20/17 17:23 00:12 05:44 WBC RBC Hgb Hct MCV MCH RDW Plt Count Lymph % (Auto) [place] % (Auto) Eos % (Auto) [place] # Seg Neutrophils % Seg Neuts % (Manual) Lymphocytes % (Manual) Seg Neutrophils # Seg Neutrophils # Man Lymphocytes # (Manual) APTT POC ABG pH ABG pH POC ABG pCO2 POC ABG pO2 ABG pO2 ABG HCO3 ABG Base Excess ABG Hemoglobin VBG pH Oxyhemoglobin Sodium Potassium Chloride Carbon Dioxide BUN Creatinine Glucose POC Glucose 66 L 139 H 176 H Lactic Acid Calcium AST ALT Alkaline Phosphatase CK-MB (CK-2) CK-MB (CK-2) Rel Index Total Protein Albumin TSH Urine WBC (Auto) Salicylates 01/20/17 01/20/17 01/20/17 11:48 17:42 23:43 WBC RBC Hgb Hct MCV MCH RDW Plt Count Lymph % (Auto) [place] % (Auto) Eos % (Auto) [place] # Seg Neutrophils % Seg Neuts % (Manual) Lymphocytes % (Manual) Seg Neutrophils # Seg Neutrophils # Man Lymphocytes # (Manual) APTT POC ABG pH ABG pH POC ABG pCO2 POC ABG pO2 ABG pO2 ABG HCO3 ABG Base Excess ABG Hemoglobin VBG pH Oxyhemoglobin Sodium Potassium Chloride Carbon Dioxide BUN Creatinine Glucose POC Glucose 218 H 132 H 178 H Lactic Acid Calcium AST ALT Alkaline Phosphatase CK-MB (CK-2) CK-MB (CK-2) Rel Index Total Protein Albumin TSH Urine WBC (Auto) Salicylates 01/21/17 01/21/17 01/21/17 05:34 11:17 23:37 WBC RBC Hgb Hct MCV MCH RDW Plt Count Lymph % (Auto) [place] % (Auto) Eos % (Auto) [place] # Seg Neutrophils % Seg Neuts % (Manual) Lymphocytes % (Manual) Seg Neutrophils # Seg Neutrophils # Man Lymphocytes # (Manual) APTT POC ABG pH ABG pH POC ABG pCO2 POC ABG pO2 ABG pO2 ABG HCO3 ABG Base Excess ABG Hemoglobin VBG pH Oxyhemoglobin Sodium Potassium Chloride Carbon Dioxide BUN Creatinine Glucose POC Glucose 106 H 213 H 140 H Lactic Acid Calcium AST ALT Alkaline Phosphatase CK-MB (CK-2) CK-MB (CK-2) Rel Index Total Protein Albumin TSH Urine WBC (Auto) Salicylates 01/22/17 01/22/17 01/22/17 04:00 04:00 04:58 WBC RBC 3.26 L Hgb 8.3 L Hct 25.5 L MCV 78 L MCH 25 L RDW 17.9 H Plt Count Lymph % (Auto) [place] % (Auto) 7.9 H Eos % (Auto) 6.2 H [place] # Seg Neutrophils % Seg Neuts % (Manual) Lymphocytes % (Manual) Seg Neutrophils # Seg Neutrophils # Man Lymphocytes # (Manual) APTT POC ABG pH ABG pH POC ABG pCO2 POC ABG pO2 ABG pO2 ABG HCO3 ABG Base Excess ABG Hemoglobin VBG pH Oxyhemoglobin Sodium Potassium Chloride 95.5 L Carbon Dioxide 31 H D BUN Creatinine Glucose 134 H POC Glucose 146 H Lactic Acid Calcium AST 44 H ALT Alkaline Phosphatase 379 H CK-MB (CK-2) CK-MB (CK-2) Rel Index Total Protein Albumin 2.7 L TSH Urine WBC (Auto) Salicylates 01/22/17 01/22/17 01/22/17 12:12 18:12 23:39 WBC RBC Hgb Hct MCV MCH RDW Plt Count Lymph % (Auto) [place] % (Auto) Eos % (Auto) [place] # Seg Neutrophils % Seg Neuts % (Manual) Lymphocytes % (Manual) Seg Neutrophils # Seg Neutrophils # Man Lymphocytes # (Manual) APTT POC ABG pH ABG pH POC ABG pCO2 POC ABG pO2 ABG pO2 ABG HCO3 ABG Base Excess ABG Hemoglobin VBG pH Oxyhemoglobin Sodium Potassium Chloride Carbon Dioxide BUN Creatinine Glucose POC Glucose 255 H 182 H 134 H Lactic Acid Calcium AST ALT Alkaline Phosphatase CK-MB (CK-2) CK-MB (CK-2) Rel Index Total Protein Albumin TSH Urine WBC (Auto) Salicylates 01/23/17 01/23/17 01/23/17 04:43 12:12 17:36 WBC RBC Hgb Hct MCV MCH RDW Plt Count Lymph % (Auto) [place] % (Auto) Eos % (Auto) [place] # Seg Neutrophils % Seg Neuts % (Manual) Lymphocytes % (Manual) Seg Neutrophils # Seg Neutrophils # Man Lymphocytes # (Manual) APTT POC ABG pH ABG pH POC ABG pCO2 POC ABG pO2 ABG pO2 ABG HCO3 ABG Base Excess ABG Hemoglobin VBG pH Oxyhemoglobin Sodium Potassium Chloride Carbon Dioxide BUN Creatinine Glucose POC Glucose 218 H 128 H 156 H Lactic Acid Calcium AST ALT Alkaline Phosphatase CK-MB (CK-2) CK-MB (CK-2) Rel Index Total Protein Albumin TSH Urine WBC (Auto) Salicylates 01/24/17 01/24/17 01/24/17 00:08 05:16 11:40 WBC RBC Hgb Hct MCV MCH RDW Plt Count Lymph % (Auto) [place] % (Auto) Eos % (Auto) [place] # Seg Neutrophils % Seg Neuts % (Manual) Lymphocytes % (Manual) Seg Neutrophils # Seg Neutrophils # Man Lymphocytes # (Manual) APTT POC ABG pH ABG pH POC ABG pCO2 POC ABG pO2 ABG pO2 ABG HCO3 ABG Base Excess ABG Hemoglobin VBG pH Oxyhemoglobin Sodium Potassium Chloride Carbon Dioxide BUN Creatinine Glucose POC Glucose 129 H 169 H 187 H Lactic Acid Calcium AST ALT Alkaline Phosphatase CK-MB (CK-2) CK-MB (CK-2) Rel Index Total Protein Albumin TSH Urine WBC (Auto) Salicylates 01/24/17 01/24/17 01/25/17 17:43 23:23 04:56 WBC RBC Hgb Hct MCV MCH RDW Plt Count Lymph % (Auto) [place] % (Auto) Eos % (Auto) [place] # Seg Neutrophils % Seg Neuts % (Manual) Lymphocytes % (Manual) Seg Neutrophils # Seg Neutrophils # Man Lymphocytes # (Manual) APTT POC ABG pH ABG pH POC ABG pCO2 POC ABG pO2 ABG pO2 ABG HCO3 ABG Base Excess ABG Hemoglobin VBG pH Oxyhemoglobin Sodium Potassium Chloride Carbon Dioxide BUN Creatinine Glucose POC Glucose 215 H 222 H 210 H Lactic Acid Calcium AST ALT Alkaline Phosphatase CK-MB (CK-2) CK-MB (CK-2) Rel Index Total Protein Albumin TSH Urine WBC (Auto) Salicylates 01/25/17 01/25/17 01/26/17 11:52 17:37 00:02 WBC RBC Hgb Hct MCV MCH RDW Plt Count Lymph % (Auto) [place] % (Auto) Eos % (Auto) [place] # Seg Neutrophils % Seg Neuts % (Manual) Lymphocytes % (Manual) Seg Neutrophils # Seg Neutrophils # Man Lymphocytes # (Manual) APTT POC ABG pH ABG pH POC ABG pCO2 POC ABG pO2 ABG pO2 ABG HCO3 ABG Base Excess ABG Hemoglobin VBG pH Oxyhemoglobin Sodium Potassium Chloride Carbon Dioxide BUN Creatinine Glucose POC Glucose 284 H 218 H 192 H Lactic Acid Calcium AST ALT Alkaline Phosphatase CK-MB (CK-2) CK-MB (CK-2) Rel Index Total Protein Albumin TSH Urine WBC (Auto) Salicylates 01/26/17 01/26/17 01/26/17 05:33 12:17 17:50 WBC RBC Hgb Hct MCV MCH RDW Plt Count Lymph % (Auto) [place] % (Auto) Eos % (Auto) [place] # Seg Neutrophils % Seg Neuts % (Manual) Lymphocytes % (Manual) Seg Neutrophils # Seg Neutrophils # Man Lymphocytes # (Manual) APTT POC ABG pH ABG pH POC ABG pCO2 POC ABG pO2 ABG pO2 ABG HCO3 ABG Base Excess ABG Hemoglobin VBG pH Oxyhemoglobin Sodium Potassium Chloride Carbon Dioxide BUN Creatinine Glucose POC Glucose 199 H 227 H 229 H Lactic Acid Calcium AST ALT Alkaline Phosphatase CK-MB (CK-2) CK-MB (CK-2) Rel Index Total Protein Albumin TSH Urine WBC (Auto) Salicylates 01/26/17 01/27/17 01/27/17 23:57 05:31 11:42 WBC RBC Hgb Hct MCV MCH RDW Plt Count Lymph % (Auto) [place] % (Auto) Eos % (Auto) [place] # Seg Neutrophils % Seg Neuts % (Manual) Lymphocytes % (Manual) Seg Neutrophils # Seg Neutrophils # Man Lymphocytes # (Manual) APTT POC ABG pH ABG pH POC ABG pCO2 POC ABG pO2 ABG pO2 ABG HCO3 ABG Base Excess ABG Hemoglobin VBG pH Oxyhemoglobin Sodium Potassium Chloride Carbon Dioxide BUN Creatinine Glucose POC Glucose 186 H 285 H 260 H Lactic Acid Calcium AST ALT Alkaline Phosphatase CK-MB (CK-2) CK-MB (CK-2) Rel Index Total Protein Albumin TSH Urine WBC (Auto) Salicylates 01/27/17 01/27/17 01/27/17 17:47 23:58 Unknown WBC 12.1 H RBC 3.28 L Hgb 8.5 L Hct 25.5 L MCV 78 L MCH 26 L RDW 16.8 H Plt Count 601 H Lymph % (Auto) [place] % (Auto) Eos % (Auto) [place] # Seg Neutrophils % Seg Neuts % (Manual) Lymphocytes % (Manual) Seg Neutrophils # Seg Neutrophils # Man Lymphocytes # (Manual) APTT POC ABG pH ABG pH POC ABG pCO2 POC ABG pO2 ABG pO2 ABG HCO3 ABG Base Excess ABG Hemoglobin VBG pH Oxyhemoglobin Sodium Potassium Chloride Carbon Dioxide BUN Creatinine Glucose POC Glucose 329 H 225 H Lactic Acid Calcium AST ALT Alkaline Phosphatase CK-MB (CK-2) CK-MB (CK-2) Rel Index Total Protein Albumin TSH Urine WBC (Auto) Salicylates 01/27/17 01/28/17 01/28/17 Unknown 03:44 03:44 WBC RBC 3.14 L Hgb 8.2 L Hct 24.1 L MCV 77 L MCH 26 L RDW 16.9 H Plt Count 567 H Lymph % (Auto) [place] % (Auto) Eos % (Auto) [place] # Seg Neutrophils % Seg Neuts % (Manual) Lymphocytes % (Manual) Seg Neutrophils # Seg Neutrophils # Man Lymphocytes # (Manual) APTT POC ABG pH ABG pH POC ABG pCO2 POC ABG pO2 ABG pO2 ABG HCO3 ABG Base Excess ABG Hemoglobin VBG pH Oxyhemoglobin Sodium 128 L Potassium 5.4 H Chloride 87.5 L Carbon Dioxide BUN 44 H 42 H Creatinine Glucose 250 H 128 H POC Glucose Lactic Acid Calcium AST ALT Alkaline Phosphatase CK-MB (CK-2) CK-MB (CK-2) Rel Index Total Protein Albumin TSH Urine WBC (Auto) Salicylates 01/28/17 01/28/17 01/28/17 11:43 16:47 17:52 WBC RBC Hgb Hct MCV MCH RDW Plt Count Lymph % (Auto) [place] % (Auto) Eos % (Auto) [place] # Seg Neutrophils % Seg Neuts % (Manual) Lymphocytes % (Manual) Seg Neutrophils # Seg Neutrophils # Man Lymphocytes # (Manual) APTT POC ABG pH ABG pH POC ABG pCO2 POC ABG pO2 ABG pO2 ABG HCO3 ABG Base Excess ABG Hemoglobin VBG pH Oxyhemoglobin Sodium Potassium Chloride Carbon Dioxide BUN Creatinine Glucose POC Glucose 351 H 249 H Lactic Acid Calcium AST ALT Alkaline Phosphatase CK-MB (CK-2) CK-MB (CK-2) Rel Index Total Protein Albumin TSH Urine WBC (Auto) > 182.0 H Salicylates 01/29/17 01/29/17 01/29/17 05:25 05:25 09:32 WBC 13.6 H RBC 3.25 L Hgb 8.3 L Hct 25.1 L MCV 77 L MCH 26 L RDW 16.8 H Plt Count 514 H Lymph % (Auto) [place] % (Auto) Eos % (Auto) [place] # Seg Neutrophils % Seg Neuts % (Manual) Lymphocytes % (Manual) Seg Neutrophils # Seg Neutrophils # Man Lymphocytes # (Manual) APTT POC ABG pH ABG pH POC ABG pCO2 POC ABG pO2 ABG pO2 ABG HCO3 ABG Base Excess ABG Hemoglobin VBG pH Oxyhemoglobin Sodium Potassium Chloride 97.8 L Carbon Dioxide BUN 34 H Creatinine Glucose 222 H POC Glucose Lactic Acid 2.50 H* Calcium AST ALT Alkaline Phosphatase CK-MB (CK-2) CK-MB (CK-2) Rel Index Total Protein Albumin TSH Urine WBC (Auto) Salicylates 01/29/17 01/29/17 01/29/17 11:56 18:11 23:55 WBC RBC Hgb Hct MCV MCH RDW Plt Count Lymph % (Auto) [place] % (Auto) Eos % (Auto) [place] # Seg Neutrophils % Seg Neuts % (Manual) Lymphocytes % (Manual) Seg Neutrophils # Seg Neutrophils # Man Lymphocytes # (Manual) APTT POC ABG pH ABG pH POC ABG pCO2 POC ABG pO2 ABG pO2 ABG HCO3 ABG Base Excess ABG Hemoglobin VBG pH Oxyhemoglobin Sodium Potassium Chloride Carbon Dioxide BUN Creatinine Glucose POC Glucose 261 H 215 H 176 H Lactic Acid Calcium AST ALT Alkaline Phosphatase CK-MB (CK-2) CK-MB (CK-2) Rel Index Total Protein Albumin TSH Urine WBC (Auto) Salicylates 01/30/17 01/30/17 01/30/17 05:31 05:31 05:34 WBC 15.2 H RBC 3.09 L Hgb 7.9 L Hct 23.9 L MCV 77 L MCH 26 L RDW 16.9 H Plt Count 569 H Lymph % (Auto) [place] % (Auto) Eos % (Auto) [place] # Seg Neutrophils % Seg Neuts % (Manual) Lymphocytes % (Manual) Seg Neutrophils # Seg Neutrophils # Man Lymphocytes # (Manual) APTT POC ABG pH ABG pH POC ABG pCO2 POC ABG pO2 ABG pO2 ABG HCO3 ABG Base Excess ABG Hemoglobin VBG pH Oxyhemoglobin Sodium Potassium Chloride Carbon Dioxide BUN 24 H Creatinine Glucose 235 H POC Glucose 243 H Lactic Acid Calcium AST ALT Alkaline Phosphatase CK-MB (CK-2) CK-MB (CK-2) Rel Index Total Protein Albumin TSH Urine WBC (Auto) Salicylates 01/30/17 01/30/17 01/30/17 11:38 17:58 23:29 WBC RBC Hgb Hct MCV MCH RDW Plt Count Lymph % (Auto) [place] % (Auto) Eos % (Auto) [place] # Seg Neutrophils % Seg Neuts % (Manual) Lymphocytes % (Manual) Seg Neutrophils # Seg Neutrophils # Man Lymphocytes # (Manual) APTT POC ABG pH ABG pH POC ABG pCO2 POC ABG pO2 ABG pO2 ABG HCO3 ABG Base Excess ABG Hemoglobin VBG pH Oxyhemoglobin Sodium Potassium Chloride Carbon Dioxide BUN Creatinine Glucose POC Glucose 298 H 208 H 245 H Lactic Acid Calcium AST ALT Alkaline Phosphatase CK-MB (CK-2) CK-MB (CK-2) Rel Index Total Protein Albumin TSH Urine WBC (Auto) Salicylates 01/31/17 01/31/17 01/31/17 04:39 04:39 05:57 WBC 11.4 H RBC 3.22 L Hgb 8.2 L Hct 24.9 L MCV 78 L MCH 25 L RDW 17.2 H Plt Count 576 H Lymph % (Auto) [place] % (Auto) Eos % (Auto) [place] # Seg Neutrophils % Seg Neuts % (Manual) Lymphocytes % (Manual) Seg Neutrophils # Seg Neutrophils # Man Lymphocytes # (Manual) APTT POC ABG pH ABG pH POC ABG pCO2 POC ABG pO2 ABG pO2 ABG HCO3 ABG Base Excess ABG Hemoglobin VBG pH Oxyhemoglobin Sodium Potassium Chloride Carbon Dioxide BUN Creatinine 0.7 L Glucose 223 H POC Glucose 264 H Lactic Acid Calcium AST ALT Alkaline Phosphatase CK-MB (CK-2) CK-MB (CK-2) Rel Index Total Protein Albumin TSH Urine WBC (Auto) Salicylates 01/31/17 01/31/17 01/31/17 12:23 17:41 18:55 WBC RBC Hgb Hct MCV MCH RDW Plt Count Lymph % (Auto) [place] % (Auto) Eos % (Auto) [place] # Seg Neutrophils % Seg Neuts % (Manual) Lymphocytes % (Manual) Seg Neutrophils # Seg Neutrophils # Man Lymphocytes # (Manual) APTT POC ABG pH ABG pH POC ABG pCO2 32.8 L POC ABG pO2 ABG pO2 ABG HCO3 ABG Base Excess ABG Hemoglobin VBG pH Oxyhemoglobin Sodium Potassium Chloride Carbon Dioxide BUN Creatinine Glucose POC Glucose 252 H 208 H Lactic Acid Calcium AST ALT Alkaline Phosphatase CK-MB (CK-2) CK-MB (CK-2) Rel Index Total Protein Albumin TSH Urine WBC (Auto) Salicylates 01/31/17 02/01/17 02/01/17 22:59 03:38 03:38 WBC RBC 2.81 L Hgb 7.4 L Hct 22.1 L MCV 79 L MCH 27 L RDW 17.0 H Plt Count 540 H Lymph % (Auto) [place] % (Auto) Eos % (Auto) [place] # Seg Neutrophils % Seg Neuts % (Manual) Lymphocytes % (Manual) Seg Neutrophils # Seg Neutrophils # Man Lymphocytes # (Manual) APTT POC ABG pH ABG pH POC ABG pCO2 POC ABG pO2 ABG pO2 ABG HCO3 ABG Base Excess ABG Hemoglobin VBG pH Oxyhemoglobin Sodium Potassium Chloride Carbon Dioxide 21 L BUN Creatinine 0.7 L Glucose POC Glucose 40 L Lactic Acid Calcium AST ALT Alkaline Phosphatase CK-MB (CK-2) CK-MB (CK-2) Rel Index Total Protein Albumin TSH Urine WBC (Auto) Salicylates 02/01/17 02/01/17 02/01/17 05:17 12:19 16:44 WBC RBC Hgb Hct MCV MCH RDW Plt Count Lymph % (Auto) [place] % (Auto) Eos % (Auto) [place] # Seg Neutrophils % Seg Neuts % (Manual) Lymphocytes % (Manual) Seg Neutrophils # Seg Neutrophils # Man Lymphocytes # (Manual) APTT POC ABG pH ABG pH POC ABG pCO2 POC ABG pO2 ABG pO2 ABG HCO3 ABG Base Excess ABG Hemoglobin VBG pH Oxyhemoglobin Sodium Potassium Chloride Carbon Dioxide BUN Creatinine Glucose POC Glucose 140 H 213 H 172 H Lactic Acid Calcium AST ALT Alkaline Phosphatase CK-MB (CK-2) CK-MB (CK-2) Rel Index Total Protein Albumin TSH Urine WBC (Auto) Salicylates 02/01/17 02/02/17 02/02/17 23:59 05:14 11:24 WBC RBC Hgb Hct MCV MCH RDW Plt Count Lymph % (Auto) [place] % (Auto) Eos % (Auto) [place] # Seg Neutrophils % Seg Neuts % (Manual) Lymphocytes % (Manual) Seg Neutrophils # Seg Neutrophils # Man Lymphocytes # (Manual) APTT POC ABG pH ABG pH POC ABG pCO2 POC ABG pO2 ABG pO2 ABG HCO3 ABG Base Excess ABG Hemoglobin VBG pH Oxyhemoglobin Sodium Potassium Chloride Carbon Dioxide BUN Creatinine Glucose POC Glucose 181 H 194 H 209 H Lactic Acid Calcium AST ALT Alkaline Phosphatase CK-MB (CK-2) CK-MB (CK-2) Rel Index Total Protein Albumin TSH Urine WBC (Auto) Salicylates 02/02/17 02/02/17 02/02/17 11:46 11:46 17:47 WBC RBC 2.94 L Hgb 7.5 L Hct 23.0 L MCV 78 L MCH 25 L RDW 16.9 H Plt Count 520 H Lymph % (Auto) [place] % (Auto) Eos % (Auto) [place] # Seg Neutrophils % Seg Neuts % (Manual) Lymphocytes % (Manual) Seg Neutrophils # Seg Neutrophils # Man Lymphocytes # (Manual) APTT POC ABG pH ABG pH POC ABG pCO2 POC ABG pO2 ABG pO2 ABG HCO3 ABG Base Excess ABG Hemoglobin VBG pH Oxyhemoglobin Sodium Potassium Chloride Carbon Dioxide BUN Creatinine 0.6 L Glucose 189 H POC Glucose 147 H Lactic Acid Calcium 8.1 L AST ALT Alkaline Phosphatase CK-MB (CK-2) CK-MB (CK-2) Rel Index Total Protein Albumin TSH Urine WBC (Auto) Salicylates 02/02/17 02/03/17 02/03/17 23:32 05:53 11:19 WBC RBC Hgb Hct MCV MCH RDW Plt Count Lymph % (Auto) [place] % (Auto) Eos % (Auto) [place] # Seg Neutrophils % Seg Neuts % (Manual) Lymphocytes % (Manual) Seg Neutrophils # Seg Neutrophils # Man Lymphocytes # (Manual) APTT POC ABG pH ABG pH POC ABG pCO2 POC ABG pO2 ABG pO2 ABG HCO3 ABG Base Excess ABG Hemoglobin VBG pH Oxyhemoglobin Sodium Potassium Chloride Carbon Dioxide BUN Creatinine Glucose POC Glucose 176 H 224 H 228 H Lactic Acid Calcium AST ALT Alkaline Phosphatase CK-MB (CK-2) CK-MB (CK-2) Rel Index Total Protein Albumin TSH Urine WBC (Auto) Salicylates 02/03/17 02/03/17 02/04/17 16:59 23:38 05:45 WBC RBC Hgb Hct MCV MCH RDW Plt Count Lymph % (Auto) [place] % (Auto) Eos % (Auto) [place] # Seg Neutrophils % Seg Neuts % (Manual) Lymphocytes % (Manual) Seg Neutrophils # Seg Neutrophils # Man Lymphocytes # (Manual) APTT POC ABG pH ABG pH POC ABG pCO2 POC ABG pO2 ABG pO2 ABG HCO3 ABG Base Excess ABG Hemoglobin VBG pH Oxyhemoglobin Sodium Potassium Chloride Carbon Dioxide BUN Creatinine Glucose POC Glucose 189 H 191 H 251 H Lactic Acid Calcium AST ALT Alkaline Phosphatase CK-MB (CK-2) CK-MB (CK-2) Rel Index Total Protein Albumin TSH Urine WBC (Auto) Salicylates 02/04/17 02/04/17 02/05/17 11:20 17:20 00:17 WBC RBC Hgb Hct MCV MCH RDW Plt Count Lymph % (Auto) [place] % (Auto) Eos % (Auto) [place] # Seg Neutrophils % Seg Neuts % (Manual) Lymphocytes % (Manual) Seg Neutrophils # Seg Neutrophils # Man Lymphocytes # (Manual) APTT POC ABG pH ABG pH POC ABG pCO2 POC ABG pO2 ABG pO2 ABG HCO3 ABG Base Excess ABG Hemoglobin VBG pH Oxyhemoglobin Sodium Potassium Chloride Carbon Dioxide BUN Creatinine Glucose POC Glucose 243 H 163 H 200 H Lactic Acid Calcium AST ALT Alkaline Phosphatase CK-MB (CK-2) CK-MB (CK-2) Rel Index Total Protein Albumin TSH Urine WBC (Auto) Salicylates 02/05/17 02/05/17 02/05/17 05:38 12:38 16:29 WBC RBC Hgb Hct MCV MCH RDW Plt Count Lymph % (Auto) [place] % (Auto) Eos % (Auto) [place] # Seg Neutrophils % Seg Neuts % (Manual) Lymphocytes % (Manual) Seg Neutrophils # Seg Neutrophils # Man Lymphocytes # (Manual) APTT POC ABG pH ABG pH POC ABG pCO2 POC ABG pO2 ABG pO2 ABG HCO3 ABG Base Excess ABG Hemoglobin VBG pH Oxyhemoglobin Sodium Potassium Chloride Carbon Dioxide BUN Creatinine Glucose POC Glucose 248 H 241 H 257 H Lactic Acid Calcium AST ALT Alkaline Phosphatase CK-MB (CK-2) CK-MB (CK-2) Rel Index Total Protein Albumin TSH Urine WBC (Auto) Salicylates 02/05/17 02/06/17 02/06/17 23:56 05:30 11:50 WBC RBC Hgb Hct MCV MCH RDW Plt Count Lymph % (Auto) [place] % (Auto) Eos % (Auto) [place] # Seg Neutrophils % Seg Neuts % (Manual) Lymphocytes % (Manual) Seg Neutrophils # Seg Neutrophils # Man Lymphocytes # (Manual) APTT POC ABG pH ABG pH POC ABG pCO2 POC ABG pO2 ABG pO2 ABG HCO3 ABG Base Excess ABG Hemoglobin VBG pH Oxyhemoglobin Sodium Potassium Chloride Carbon Dioxide BUN Creatinine Glucose POC Glucose 258 H 120 H 254 H Lactic Acid Calcium AST ALT Alkaline Phosphatase CK-MB (CK-2) CK-MB (CK-2) Rel Index Total Protein Albumin TSH Urine WBC (Auto) Salicylates 02/06/17 02/06/17 02/07/17 17:11 23:50 05:22 WBC RBC Hgb Hct MCV MCH RDW Plt Count Lymph % (Auto) [place] % (Auto) Eos % (Auto) [place] # Seg Neutrophils % Seg Neuts % (Manual) Lymphocytes % (Manual) Seg Neutrophils # Seg Neutrophils # Man Lymphocytes # (Manual) APTT POC ABG pH ABG pH POC ABG pCO2 POC ABG pO2 ABG pO2 ABG HCO3 ABG Base Excess ABG Hemoglobin VBG pH Oxyhemoglobin Sodium Potassium Chloride Carbon Dioxide BUN Creatinine Glucose POC Glucose 149 H 240 H 258 H Lactic Acid Calcium AST ALT Alkaline Phosphatase CK-MB (CK-2) CK-MB (CK-2) Rel Index Total Protein Albumin TSH Urine WBC (Auto) Salicylates 02/07/17 02/07/17 02/07/17 11:15 18:33 23:59 WBC RBC Hgb Hct MCV MCH RDW Plt Count Lymph % (Auto) [place] % (Auto) Eos % (Auto) [place] # Seg Neutrophils % Seg Neuts % (Manual) Lymphocytes % (Manual) Seg Neutrophils # Seg Neutrophils # Man Lymphocytes # (Manual) APTT POC ABG pH ABG pH POC ABG pCO2 POC ABG pO2 ABG pO2 ABG HCO3 ABG Base Excess ABG Hemoglobin VBG pH Oxyhemoglobin Sodium Potassium Chloride Carbon Dioxide BUN Creatinine Glucose POC Glucose 239 H 176 H 186 H Lactic Acid Calcium AST ALT Alkaline Phosphatase CK-MB (CK-2) CK-MB (CK-2) Rel Index Total Protein Albumin TSH Urine WBC (Auto) Salicylates 02/08/17 02/08/17 02/08/17 06:15 11:55 16:55 WBC RBC Hgb Hct MCV MCH RDW Plt Count Lymph % (Auto) [place] % (Auto) Eos % (Auto) [place] # Seg Neutrophils % Seg Neuts % (Manual) Lymphocytes % (Manual) Seg Neutrophils # Seg Neutrophils # Man Lymphocytes # (Manual) APTT POC ABG pH ABG pH POC ABG pCO2 POC ABG pO2 ABG pO2 ABG HCO3 ABG Base Excess ABG Hemoglobin VBG pH Oxyhemoglobin Sodium Potassium Chloride Carbon Dioxide BUN Creatinine Glucose POC Glucose 195 H 129 H 246 H Lactic Acid Calcium AST ALT Alkaline Phosphatase CK-MB (CK-2) CK-MB (CK-2) Rel Index Total Protein Albumin TSH Urine WBC (Auto) Salicylates 02/08/17 02/09/17 02/09/17 23:51 05:51 07:24 WBC 14.7 H RBC 3.39 L Hgb 8.9 L Hct 26.4 L MCV 78 L MCH 26 L RDW 18.4 H Plt Count 670 H Lymph % (Auto) 11.8 L [place] % (Auto) Eos % (Auto) [place] # Seg Neutrophils % 81.2 H Seg Neuts % (Manual) Lymphocytes % (Manual) Seg Neutrophils # 11.9 H Seg Neutrophils # Man Lymphocytes # (Manual) APTT POC ABG pH ABG pH POC ABG pCO2 POC ABG pO2 ABG pO2 ABG HCO3 ABG Base Excess ABG Hemoglobin VBG pH Oxyhemoglobin Sodium Potassium Chloride Carbon Dioxide BUN Creatinine Glucose POC Glucose 262 H 295 H Lactic Acid Calcium AST ALT Alkaline Phosphatase CK-MB (CK-2) CK-MB (CK-2) Rel Index Total Protein Albumin TSH Urine WBC (Auto) Salicylates 02/09/17 02/09/17 02/09/17 07:24 12:08 18:39 WBC RBC Hgb Hct MCV MCH RDW Plt Count Lymph % (Auto) [place] % (Auto) Eos % (Auto) [place] # Seg Neutrophils % Seg Neuts % (Manual) Lymphocytes % (Manual) Seg Neutrophils # Seg Neutrophils # Man Lymphocytes # (Manual) APTT POC ABG pH ABG pH POC ABG pCO2 POC ABG pO2 ABG pO2 ABG HCO3 ABG Base Excess ABG Hemoglobin VBG pH Oxyhemoglobin Sodium Potassium Chloride 95.5 L Carbon Dioxide BUN 52 H Creatinine Glucose 277 H POC Glucose 236 H 151 H Lactic Acid Calcium AST ALT Alkaline Phosphatase CK-MB (CK-2) CK-MB (CK-2) Rel Index Total Protein Albumin TSH Urine WBC (Auto) Salicylates 02/10/17 02/10/17 02/10/17 00:01 05:44 11:21 WBC RBC Hgb Hct MCV MCH RDW Plt Count Lymph % (Auto) [place] % (Auto) Eos % (Auto) [place] # Seg Neutrophils % Seg Neuts % (Manual) Lymphocytes % (Manual) Seg Neutrophils # Seg Neutrophils # Man Lymphocytes # (Manual) APTT POC ABG pH ABG pH POC ABG pCO2 POC ABG pO2 ABG pO2 ABG HCO3 ABG Base Excess ABG Hemoglobin VBG pH Oxyhemoglobin Sodium Potassium Chloride Carbon Dioxide BUN Creatinine Glucose POC Glucose 210 H 201 H 233 H Lactic Acid Calcium AST ALT Alkaline Phosphatase CK-MB (CK-2) CK-MB (CK-2) Rel Index Total Protein Albumin TSH Urine WBC (Auto) Salicylates 02/10/17 02/10/17 02/11/17 17:29 23:56 05:24 WBC RBC Hgb Hct MCV MCH RDW Plt Count Lymph % (Auto) [place] % (Auto) Eos % (Auto) [place] # Seg Neutrophils % Seg Neuts % (Manual) Lymphocytes % (Manual) Seg Neutrophils # Seg Neutrophils # Man Lymphocytes # (Manual) APTT POC ABG pH ABG pH POC ABG pCO2 POC ABG pO2 ABG pO2 ABG HCO3 ABG Base Excess ABG Hemoglobin VBG pH Oxyhemoglobin Sodium Potassium Chloride Carbon Dioxide BUN Creatinine Glucose POC Glucose 167 H 191 H 135 H Lactic Acid Calcium AST ALT Alkaline Phosphatase CK-MB (CK-2) CK-MB (CK-2) Rel Index Total Protein Albumin TSH Urine WBC (Auto) Salicylates 02/11/17 02/11/17 02/11/17 12:25 17:03 23:59 WBC RBC Hgb Hct MCV MCH RDW Plt Count Lymph % (Auto) [place] % (Auto) Eos % (Auto) [place] # Seg Neutrophils % Seg Neuts % (Manual) Lymphocytes % (Manual) Seg Neutrophils # Seg Neutrophils # Man Lymphocytes # (Manual) APTT POC ABG pH ABG pH POC ABG pCO2 POC ABG pO2 ABG pO2 ABG HCO3 ABG Base Excess ABG Hemoglobin VBG pH Oxyhemoglobin Sodium Potassium Chloride Carbon Dioxide BUN Creatinine Glucose POC Glucose 275 H 172 H 215 H Lactic Acid Calcium AST ALT Alkaline Phosphatase CK-MB (CK-2) CK-MB (CK-2) Rel Index Total Protein Albumin TSH Urine WBC (Auto) Salicylates 02/12/17 02/12/17 02/12/17 05:39 11:33 17:55 WBC RBC Hgb Hct MCV MCH RDW Plt Count Lymph % (Auto) [place] % (Auto) Eos % (Auto) [place] # Seg Neutrophils % Seg Neuts % (Manual) Lymphocytes % (Manual) Seg Neutrophils # Seg Neutrophils # Man Lymphocytes # (Manual) APTT POC ABG pH ABG pH POC ABG pCO2 POC ABG pO2 ABG pO2 ABG HCO3 ABG Base Excess ABG Hemoglobin VBG pH Oxyhemoglobin Sodium Potassium Chloride Carbon Dioxide BUN Creatinine Glucose POC Glucose 261 H 217 H 172 H Lactic Acid Calcium AST ALT Alkaline Phosphatase CK-MB (CK-2) CK-MB (CK-2) Rel Index Total Protein Albumin TSH Urine WBC (Auto) Salicylates 02/13/17 02/13/17 02/13/17 00:25 06:46 11:26 WBC RBC Hgb Hct MCV MCH RDW Plt Count Lymph % (Auto) [place] % (Auto) Eos % (Auto) [place] # Seg Neutrophils % Seg Neuts % (Manual) Lymphocytes % (Manual) Seg Neutrophils # Seg Neutrophils # Man Lymphocytes # (Manual) APTT POC ABG pH ABG pH POC ABG pCO2 POC ABG pO2 ABG pO2 ABG HCO3 ABG Base Excess ABG Hemoglobin VBG pH Oxyhemoglobin Sodium Potassium Chloride Carbon Dioxide BUN Creatinine Glucose POC Glucose 207 H 219 H 231 H Lactic Acid Calcium AST ALT Alkaline Phosphatase CK-MB (CK-2) CK-MB (CK-2) Rel Index Total Protein Albumin TSH Urine WBC (Auto) Salicylates 02/13/17 02/13/17 02/14/17 17:12 23:44 05:44 WBC RBC Hgb Hct MCV MCH RDW Plt Count Lymph % (Auto) [place] % (Auto) Eos % (Auto) [place] # Seg Neutrophils % Seg Neuts % (Manual) Lymphocytes % (Manual) Seg Neutrophils # Seg Neutrophils # Man Lymphocytes # (Manual) APTT POC ABG pH ABG pH POC ABG pCO2 POC ABG pO2 ABG pO2 ABG HCO3 ABG Base Excess ABG Hemoglobin VBG pH Oxyhemoglobin Sodium Potassium Chloride Carbon Dioxide BUN Creatinine Glucose POC Glucose 190 H 256 H 184 H Lactic Acid Calcium AST ALT Alkaline Phosphatase CK-MB (CK-2) CK-MB (CK-2) Rel Index Total Protein Albumin TSH Urine WBC (Auto) Salicylates 02/14/17 02/14/17 02/14/17 12:21 17:57 23:18 WBC RBC Hgb Hct MCV MCH RDW Plt Count Lymph % (Auto) [place] % (Auto) Eos % (Auto) [place] # Seg Neutrophils % Seg Neuts % (Manual) Lymphocytes % (Manual) Seg Neutrophils # Seg Neutrophils # Man Lymphocytes # (Manual) APTT POC ABG pH ABG pH POC ABG pCO2 POC ABG pO2 ABG pO2 ABG HCO3 ABG Base Excess ABG Hemoglobin VBG pH Oxyhemoglobin Sodium Potassium Chloride Carbon Dioxide BUN Creatinine Glucose POC Glucose 233 H 155 H 165 H Lactic Acid Calcium AST ALT Alkaline Phosphatase CK-MB (CK-2) CK-MB (CK-2) Rel Index Total Protein Albumin TSH Urine WBC (Auto) Salicylates 02/15/17 02/15/17 02/15/17 05:33 11:45 17:20 WBC RBC Hgb Hct MCV MCH RDW Plt Count Lymph % (Auto) [place] % (Auto) Eos % (Auto) [place] # Seg Neutrophils % Seg Neuts % (Manual) Lymphocytes % (Manual) Seg Neutrophils # Seg Neutrophils # Man Lymphocytes # (Manual) APTT POC ABG pH ABG pH POC ABG pCO2 POC ABG pO2 ABG pO2 ABG HCO3 ABG Base Excess ABG Hemoglobin VBG pH Oxyhemoglobin Sodium Potassium Chloride Carbon Dioxide BUN Creatinine Glucose POC Glucose 239 H 130 H 189 H Lactic Acid Calcium AST ALT Alkaline Phosphatase CK-MB (CK-2) CK-MB (CK-2) Rel Index Total Protein Albumin TSH Urine WBC (Auto) Salicylates 02/16/17 02/16/17 02/16/17 00:14 05:09 12:31 WBC RBC Hgb Hct MCV MCH RDW Plt Count Lymph % (Auto) [place] % (Auto) Eos % (Auto) [place] # Seg Neutrophils % Seg Neuts % (Manual) Lymphocytes % (Manual) Seg Neutrophils # Seg Neutrophils # Man Lymphocytes # (Manual) APTT POC ABG pH ABG pH POC ABG pCO2 POC ABG pO2 ABG pO2 ABG HCO3 ABG Base Excess ABG Hemoglobin VBG pH Oxyhemoglobin Sodium Potassium Chloride Carbon Dioxide BUN Creatinine Glucose POC Glucose 197 H 226 H 178 H Lactic Acid Calcium AST ALT Alkaline Phosphatase CK-MB (CK-2) CK-MB (CK-2) Rel Index Total Protein Albumin TSH Urine WBC (Auto) Salicylates 02/16/17 02/16/17 02/17/17 16:35 23:49 05:37 WBC RBC Hgb Hct MCV MCH RDW Plt Count Lymph % (Auto) [place] % (Auto) Eos % (Auto) [place] # Seg Neutrophils % Seg Neuts % (Manual) Lymphocytes % (Manual) Seg Neutrophils # Seg Neutrophils # Man Lymphocytes # (Manual) APTT POC ABG pH ABG pH POC ABG pCO2 POC ABG pO2 ABG pO2 ABG HCO3 ABG Base Excess ABG Hemoglobin VBG pH Oxyhemoglobin Sodium Potassium Chloride Carbon Dioxide BUN Creatinine Glucose POC Glucose 174 H 62 L 153 H Lactic Acid Calcium AST ALT Alkaline Phosphatase CK-MB (CK-2) CK-MB (CK-2) Rel Index Total Protein Albumin TSH Urine WBC (Auto) Salicylates 02/17/17 02/17/17 02/17/17 11:39 17:02 22:24 WBC RBC Hgb Hct MCV MCH RDW Plt Count Lymph % (Auto) [place] % (Auto) Eos % (Auto) [place] # Seg Neutrophils % Seg Neuts % (Manual) Lymphocytes % (Manual) Seg Neutrophils # Seg Neutrophils # Man Lymphocytes # (Manual) APTT POC ABG pH ABG pH POC ABG pCO2 POC ABG pO2 ABG pO2 ABG HCO3 ABG Base Excess ABG Hemoglobin VBG pH Oxyhemoglobin Sodium Potassium Chloride Carbon Dioxide BUN Creatinine Glucose POC Glucose 231 H 112 H 116 H Lactic Acid Calcium AST ALT Alkaline Phosphatase CK-MB (CK-2) CK-MB (CK-2) Rel Index Total Protein Albumin TSH Urine WBC (Auto) Salicylates 02/18/17 02/19/17 02/19/17 15:34 05:09 07:57 WBC RBC Hgb Hct MCV MCH RDW Plt Count Lymph % (Auto) [place] % (Auto) Eos % (Auto) [place] # Seg Neutrophils % Seg Neuts % (Manual) Lymphocytes % (Manual) Seg Neutrophils # Seg Neutrophils # Man Lymphocytes # (Manual) APTT POC ABG pH ABG pH POC ABG pCO2 POC ABG pO2 ABG pO2 ABG HCO3 ABG Base Excess ABG Hemoglobin VBG pH Oxyhemoglobin Sodium Potassium Chloride Carbon Dioxide BUN Creatinine Glucose POC Glucose 215 H 218 H 283 H Lactic Acid Calcium AST ALT Alkaline Phosphatase CK-MB (CK-2) CK-MB (CK-2) Rel Index Total Protein Albumin TSH Urine WBC (Auto) Salicylates 02/19/17 02/19/17 02/20/17 14:49 22:10 05:10 WBC RBC Hgb Hct MCV MCH RDW Plt Count Lymph % (Auto) [place] % (Auto) Eos % (Auto) [place] # Seg Neutrophils % Seg Neuts % (Manual) Lymphocytes % (Manual) Seg Neutrophils # Seg Neutrophils # Man Lymphocytes # (Manual) APTT POC ABG pH ABG pH POC ABG pCO2 POC ABG pO2 ABG pO2 ABG HCO3 ABG Base Excess ABG Hemoglobin VBG pH Oxyhemoglobin Sodium Potassium Chloride Carbon Dioxide BUN Creatinine Glucose POC Glucose 290 H 169 H 209 H Lactic Acid Calcium AST ALT Alkaline Phosphatase CK-MB (CK-2) CK-MB (CK-2) Rel Index Total Protein Albumin TSH Urine WBC (Auto) Salicylates 02/20/17 02/20/17 02/21/17 15:05 21:52 02:00 WBC RBC Hgb Hct MCV MCH RDW Plt Count Lymph % (Auto) [place] % (Auto) Eos % (Auto) [place] # Seg Neutrophils % Seg Neuts % (Manual) Lymphocytes % (Manual) Seg Neutrophils # Seg Neutrophils # Man Lymphocytes # (Manual) APTT POC ABG pH ABG pH POC ABG pCO2 POC ABG pO2 ABG pO2 ABG HCO3 ABG Base Excess ABG Hemoglobin VBG pH Oxyhemoglobin Sodium Potassium Chloride Carbon Dioxide BUN Creatinine Glucose POC Glucose 172 H 209 H 216 H Lactic Acid Calcium AST ALT Alkaline Phosphatase CK-MB (CK-2) CK-MB (CK-2) Rel Index Total Protein Albumin TSH Urine WBC (Auto) Salicylates 02/21/17 02/21/17 02/21/17 04:54 14:43 17:47 WBC RBC Hgb Hct MCV MCH RDW Plt Count Lymph % (Auto) [place] % (Auto) Eos % (Auto) [place] # Seg Neutrophils % Seg Neuts % (Manual) Lymphocytes % (Manual) Seg Neutrophils # Seg Neutrophils # Man Lymphocytes # (Manual) APTT POC ABG pH ABG pH POC ABG pCO2 POC ABG pO2 ABG pO2 ABG HCO3 ABG Base Excess ABG Hemoglobin VBG pH Oxyhemoglobin Sodium Potassium Chloride Carbon Dioxide BUN Creatinine Glucose POC Glucose 227 H 290 H 220 H Lactic Acid Calcium AST ALT Alkaline Phosphatase CK-MB (CK-2) CK-MB (CK-2) Rel Index Total Protein Albumin TSH Urine WBC (Auto) Salicylates 02/21/17 02/22/17 02/22/17 22:02 04:52 15:25 WBC RBC Hgb Hct MCV MCH RDW Plt Count Lymph % (Auto) [place] % (Auto) Eos % (Auto) [place] # Seg Neutrophils % Seg Neuts % (Manual) Lymphocytes % (Manual) Seg Neutrophils # Seg Neutrophils # Man Lymphocytes # (Manual) APTT POC ABG pH ABG pH POC ABG pCO2 POC ABG pO2 ABG pO2 ABG HCO3 ABG Base Excess ABG Hemoglobin VBG pH Oxyhemoglobin Sodium Potassium Chloride Carbon Dioxide BUN Creatinine Glucose POC Glucose 246 H 212 H 236 H Lactic Acid Calcium AST ALT Alkaline Phosphatase CK-MB (CK-2) CK-MB (CK-2) Rel Index Total Protein Albumin TSH Urine WBC (Auto) Salicylates 02/22/17 02/23/17 02/23/17 21:33 06:04 10:00 WBC RBC Hgb Hct MCV MCH RDW Plt Count Lymph % (Auto) [place] % (Auto) Eos % (Auto) [place] # Seg Neutrophils % Seg Neuts % (Manual) Lymphocytes % (Manual) Seg Neutrophils # Seg Neutrophils # Man Lymphocytes # (Manual) APTT POC ABG pH ABG pH POC ABG pCO2 POC ABG pO2 ABG pO2 ABG HCO3 ABG Base Excess ABG Hemoglobin VBG pH Oxyhemoglobin Sodium Potassium Chloride Carbon Dioxide BUN Creatinine Glucose POC Glucose 255 H 208 H 174 H Lactic Acid Calcium AST ALT Alkaline Phosphatase CK-MB (CK-2) CK-MB (CK-2) Rel Index Total Protein Albumin TSH Urine WBC (Auto) Salicylates 02/23/17 02/23/17 02/23/17 12:52 17:15 21:51 WBC RBC Hgb Hct MCV MCH RDW Plt Count Lymph % (Auto) [place] % (Auto) Eos % (Auto) [place] # Seg Neutrophils % Seg Neuts % (Manual) Lymphocytes % (Manual) Seg Neutrophils # Seg Neutrophils # Man Lymphocytes # (Manual) APTT POC ABG pH ABG pH POC ABG pCO2 POC ABG pO2 ABG pO2 ABG HCO3 ABG Base Excess ABG Hemoglobin VBG pH Oxyhemoglobin Sodium Potassium Chloride Carbon Dioxide BUN Creatinine Glucose POC Glucose 203 H 269 H 205 H Lactic Acid Calcium AST ALT Alkaline Phosphatase CK-MB (CK-2) CK-MB (CK-2) Rel Index Total Protein Albumin TSH Urine WBC (Auto) Salicylates 02/24/17 02/24/17 02/24/17 10:23 17:45 21:24 WBC RBC Hgb Hct MCV MCH RDW Plt Count Lymph % (Auto) [place] % (Auto) Eos % (Auto) [place] # Seg Neutrophils % Seg Neuts % (Manual) Lymphocytes % (Manual) Seg Neutrophils # Seg Neutrophils # Man Lymphocytes # (Manual) APTT POC ABG pH ABG pH POC ABG pCO2 POC ABG pO2 ABG pO2 ABG HCO3 ABG Base Excess ABG Hemoglobin VBG pH Oxyhemoglobin Sodium Potassium Chloride Carbon Dioxide BUN Creatinine Glucose POC Glucose 280 H 239 H 254 H Lactic Acid Calcium AST ALT Alkaline Phosphatase CK-MB (CK-2) CK-MB (CK-2) Rel Index Total Protein Albumin TSH Urine WBC (Auto) Salicylates 02/25/17 02/25/17 02/25/17 02:12 05:17 14:32 WBC RBC Hgb Hct MCV MCH RDW Plt Count Lymph % (Auto) [place] % (Auto) Eos % (Auto) [place] # Seg Neutrophils % Seg Neuts % (Manual) Lymphocytes % (Manual) Seg Neutrophils # Seg Neutrophils # Man Lymphocytes # (Manual) APTT POC ABG pH ABG pH POC ABG pCO2 POC ABG pO2 ABG pO2 ABG HCO3 ABG Base Excess ABG Hemoglobin VBG pH Oxyhemoglobin Sodium Potassium Chloride Carbon Dioxide BUN Creatinine Glucose POC Glucose 296 H 332 H 353 H Lactic Acid Calcium AST ALT Alkaline Phosphatase CK-MB (CK-2) CK-MB (CK-2) Rel Index Total Protein Albumin TSH Urine WBC (Auto) Salicylates 02/25/17 02/26/17 02/26/17 22:14 00:37 05:52 WBC RBC Hgb Hct MCV MCH RDW Plt Count Lymph % (Auto) [place] % (Auto) Eos % (Auto) [place] # Seg Neutrophils % Seg Neuts % (Manual) Lymphocytes % (Manual) Seg Neutrophils # Seg Neutrophils # Man Lymphocytes # (Manual) APTT POC ABG pH ABG pH POC ABG pCO2 POC ABG pO2 ABG pO2 ABG HCO3 ABG Base Excess ABG Hemoglobin VBG pH Oxyhemoglobin Sodium Potassium Chloride Carbon Dioxide BUN Creatinine Glucose POC Glucose 201 H 233 H 269 H Lactic Acid Calcium AST ALT Alkaline Phosphatase CK-MB (CK-2) CK-MB (CK-2) Rel Index Total Protein Albumin TSH Urine WBC (Auto) Salicylates 02/26/17 02/26/17 02/26/17 11:48 13:49 21:26 WBC RBC Hgb Hct MCV MCH RDW Plt Count Lymph % (Auto) [place] % (Auto) Eos % (Auto) [place] # Seg Neutrophils % Seg Neuts % (Manual) Lymphocytes % (Manual) Seg Neutrophils # Seg Neutrophils # Man Lymphocytes # (Manual) APTT POC ABG pH ABG pH POC ABG pCO2 POC ABG pO2 ABG pO2 ABG HCO3 ABG Base Excess ABG Hemoglobin VBG pH Oxyhemoglobin Sodium Potassium Chloride Carbon Dioxide BUN Creatinine Glucose POC Glucose 333 H 322 H 244 H Lactic Acid Calcium AST ALT Alkaline Phosphatase CK-MB (CK-2) CK-MB (CK-2) Rel Index Total Protein Albumin TSH Urine WBC (Auto) Salicylates 02/27/17 02/27/17 02/27/17 05:27 13:51 21:48 WBC RBC Hgb Hct MCV MCH RDW Plt Count Lymph % (Auto) [place] % (Auto) Eos % (Auto) [place] # Seg Neutrophils % Seg Neuts % (Manual) Lymphocytes % (Manual) Seg Neutrophils # Seg Neutrophils # Man Lymphocytes # (Manual) APTT POC ABG pH ABG pH POC ABG pCO2 POC ABG pO2 ABG pO2 ABG HCO3 ABG Base Excess ABG Hemoglobin VBG pH Oxyhemoglobin Sodium Potassium Chloride Carbon Dioxide BUN Creatinine Glucose POC Glucose 217 H 239 H 254 H Lactic Acid Calcium AST ALT Alkaline Phosphatase CK-MB (CK-2) CK-MB (CK-2) Rel Index Total Protein Albumin TSH Urine WBC (Auto) Salicylates 02/28/17 02/28/17 02/28/17 05:38 11:00 19:44 WBC RBC Hgb Hct MCV MCH RDW Plt Count Lymph % (Auto) [place] % (Auto) Eos % (Auto) [place] # Seg Neutrophils % Seg Neuts % (Manual) Lymphocytes % (Manual) Seg Neutrophils # Seg Neutrophils # Man Lymphocytes # (Manual) APTT POC ABG pH ABG pH POC ABG pCO2 POC ABG pO2 ABG pO2 ABG HCO3 ABG Base Excess ABG Hemoglobin VBG pH Oxyhemoglobin Sodium Potassium Chloride Carbon Dioxide BUN Creatinine Glucose POC Glucose 325 H 203 H 116 H Lactic Acid Calcium AST ALT Alkaline Phosphatase CK-MB (CK-2) CK-MB (CK-2) Rel Index Total Protein Albumin TSH Urine WBC (Auto) Salicylates 03/01/17 03/01/17 03/01/17 00:08 05:31 12:17 WBC RBC Hgb Hct MCV MCH RDW Plt Count Lymph % (Auto) [place] % (Auto) Eos % (Auto) [place] # Seg Neutrophils % Seg Neuts % (Manual) Lymphocytes % (Manual) Seg Neutrophils # Seg Neutrophils # Man Lymphocytes # (Manual) APTT POC ABG pH ABG pH POC ABG pCO2 POC ABG pO2 ABG pO2 ABG HCO3 ABG Base Excess ABG Hemoglobin VBG pH Oxyhemoglobin Sodium Potassium Chloride Carbon Dioxide BUN Creatinine Glucose POC Glucose 202 H 183 H 184 H Lactic Acid Calcium AST ALT Alkaline Phosphatase CK-MB (CK-2) CK-MB (CK-2) Rel Index Total Protein Albumin TSH Urine WBC (Auto) Salicylates 03/02/17 03/02/17 03/02/17 00:12 05:58 18:22 WBC RBC Hgb Hct MCV MCH RDW Plt Count Lymph % (Auto) [place] % (Auto) Eos % (Auto) [place] # Seg Neutrophils % Seg Neuts % (Manual) Lymphocytes % (Manual) Seg Neutrophils # Seg Neutrophils # Man Lymphocytes # (Manual) APTT POC ABG pH ABG pH POC ABG pCO2 POC ABG pO2 ABG pO2 ABG HCO3 ABG Base Excess ABG Hemoglobin VBG pH Oxyhemoglobin Sodium Potassium Chloride Carbon Dioxide BUN Creatinine Glucose POC Glucose 117 H 176 H 156 H Lactic Acid Calcium AST ALT Alkaline Phosphatase CK-MB (CK-2) CK-MB (CK-2) Rel Index Total Protein Albumin TSH Urine WBC (Auto) Salicylates 03/02/17 03/03/17 03/03/17 23:51 05:44 11:32 WBC RBC Hgb Hct MCV MCH RDW Plt Count Lymph % (Auto) [place] % (Auto) Eos % (Auto) [place] # Seg Neutrophils % Seg Neuts % (Manual) Lymphocytes % (Manual) Seg Neutrophils # Seg Neutrophils # Man Lymphocytes # (Manual) APTT POC ABG pH ABG pH POC ABG pCO2 POC ABG pO2 ABG pO2 ABG HCO3 ABG Base Excess ABG Hemoglobin VBG pH Oxyhemoglobin Sodium Potassium Chloride Carbon Dioxide BUN Creatinine Glucose POC Glucose 211 H 117 H 133 H Lactic Acid Calcium AST ALT Alkaline Phosphatase CK-MB (CK-2) CK-MB (CK-2) Rel Index Total Protein Albumin TSH Urine WBC (Auto) Salicylates 03/03/17 03/03/17 03/04/17 17:43 23:17 05:30 WBC RBC Hgb Hct MCV MCH RDW Plt Count Lymph % (Auto) [place] % (Auto) Eos % (Auto) [place] # Seg Neutrophils % Seg Neuts % (Manual) Lymphocytes % (Manual) Seg Neutrophils # Seg Neutrophils # Man Lymphocytes # (Manual) APTT POC ABG pH ABG pH POC ABG pCO2 POC ABG pO2 ABG pO2 ABG HCO3 ABG Base Excess ABG Hemoglobin VBG pH Oxyhemoglobin Sodium Potassium Chloride Carbon Dioxide BUN Creatinine Glucose POC Glucose 206 H 170 H 126 H Lactic Acid Calcium AST ALT Alkaline Phosphatase CK-MB (CK-2) CK-MB (CK-2) Rel Index Total Protein Albumin TSH Urine WBC (Auto) Salicylates 03/04/17 03/04/17 03/05/17 12:17 17:27 05:20 WBC RBC Hgb Hct MCV MCH RDW Plt Count Lymph % (Auto) [place] % (Auto) Eos % (Auto) [place] # Seg Neutrophils % Seg Neuts % (Manual) Lymphocytes % (Manual) Seg Neutrophils # Seg Neutrophils # Man Lymphocytes # (Manual) APTT POC ABG pH ABG pH POC ABG pCO2 POC ABG pO2 ABG pO2 ABG HCO3 ABG Base Excess ABG Hemoglobin VBG pH Oxyhemoglobin Sodium Potassium Chloride Carbon Dioxide BUN Creatinine Glucose POC Glucose 135 H 121 H 185 H Lactic Acid Calcium AST ALT Alkaline Phosphatase CK-MB (CK-2) CK-MB (CK-2) Rel Index Total Protein Albumin TSH Urine WBC (Auto) Salicylates 03/05/17 03/06/17 03/06/17 11:50 11:52 17:34 WBC RBC Hgb Hct MCV MCH RDW Plt Count Lymph % (Auto) [place] % (Auto) Eos % (Auto) [place] # Seg Neutrophils % Seg Neuts % (Manual) Lymphocytes % (Manual) Seg Neutrophils # Seg Neutrophils # Man Lymphocytes # (Manual) APTT POC ABG pH ABG pH POC ABG pCO2 POC ABG pO2 ABG pO2 ABG HCO3 ABG Base Excess ABG Hemoglobin VBG pH Oxyhemoglobin Sodium Potassium Chloride Carbon Dioxide BUN Creatinine Glucose POC Glucose 116 H 133 H 181 H Lactic Acid Calcium AST ALT Alkaline Phosphatase CK-MB (CK-2) CK-MB (CK-2) Rel Index Total Protein Albumin TSH Urine WBC (Auto) Salicylates 03/07/17 03/07/17 03/07/17 05:21 11:36 17:49 WBC RBC Hgb Hct MCV MCH RDW Plt Count Lymph % (Auto) [place] % (Auto) Eos % (Auto) [place] # Seg Neutrophils % Seg Neuts % (Manual) Lymphocytes % (Manual) Seg Neutrophils # Seg Neutrophils # Man Lymphocytes # (Manual) APTT POC ABG pH ABG pH POC ABG pCO2 POC ABG pO2 ABG pO2 ABG HCO3 ABG Base Excess ABG Hemoglobin VBG pH Oxyhemoglobin Sodium Potassium Chloride Carbon Dioxide BUN Creatinine Glucose POC Glucose 159 H 137 H 158 H Lactic Acid Calcium AST ALT Alkaline Phosphatase CK-MB (CK-2) CK-MB (CK-2) Rel Index Total Protein Albumin TSH Urine WBC (Auto) Salicylates 03/08/17 03/08/17 03/08/17 05:51 13:58 23:50 WBC RBC Hgb Hct MCV MCH RDW Plt Count Lymph % (Auto) [place] % (Auto) Eos % (Auto) [place] # Seg Neutrophils % Seg Neuts % (Manual) Lymphocytes % (Manual) Seg Neutrophils # Seg Neutrophils # Man Lymphocytes # (Manual) APTT POC ABG pH ABG pH POC ABG pCO2 POC ABG pO2 ABG pO2 ABG HCO3 ABG Base Excess ABG Hemoglobin VBG pH Oxyhemoglobin Sodium Potassium Chloride Carbon Dioxide BUN Creatinine Glucose POC Glucose 122 H 182 H 114 H Lactic Acid Calcium AST ALT Alkaline Phosphatase CK-MB (CK-2) CK-MB (CK-2) Rel Index Total Protein Albumin TSH Urine WBC (Auto) Salicylates 03/09/17 03/09/17 03/09/17 05:21 05:51 05:51 WBC RBC 3.61 L Hgb 9.5 L Hct 28.3 L MCV 79 L MCH 26 L RDW 17.8 H Plt Count Lymph % (Auto) [place] % (Auto) Eos % (Auto) [place] # Seg Neutrophils % Seg Neuts % (Manual) Lymphocytes % (Manual) Seg Neutrophils # Seg Neutrophils # Man Lymphocytes # (Manual) APTT POC ABG pH ABG pH POC ABG pCO2 POC ABG pO2 ABG pO2 ABG HCO3 ABG Base Excess ABG Hemoglobin VBG pH Oxyhemoglobin Sodium 134 L Potassium Chloride 95.5 L Carbon Dioxide BUN 33 H Creatinine 0.5 L Glucose 143 H POC Glucose 153 H Lactic Acid Calcium AST ALT Alkaline Phosphatase CK-MB (CK-2) CK-MB (CK-2) Rel Index Total Protein Albumin TSH Urine WBC (Auto) Salicylates 03/09/17 03/09/17 03/09/17 12:10 18:13 21:00 WBC RBC Hgb Hct MCV MCH RDW Plt Count Lymph % (Auto) [place] % (Auto) Eos % (Auto) [place] # Seg Neutrophils % Seg Neuts % (Manual) Lymphocytes % (Manual) Seg Neutrophils # Seg Neutrophils # Man Lymphocytes # (Manual) APTT POC ABG pH ABG pH POC ABG pCO2 POC ABG pO2 ABG pO2 ABG HCO3 ABG Base Excess ABG Hemoglobin VBG pH Oxyhemoglobin Sodium Potassium Chloride Carbon Dioxide BUN Creatinine Glucose POC Glucose 203 H 221 H 198 H Lactic Acid Calcium AST ALT Alkaline Phosphatase CK-MB (CK-2) CK-MB (CK-2) Rel Index Total Protein Albumin TSH Urine WBC (Auto) Salicylates 03/09/17 03/10/17 03/10/17 23:58 05:09 05:09 WBC RBC Hgb 10.3 L Hct 30.5 L MCV 78 L MCH 26 L RDW 17.9 H Plt Count Lymph % (Auto) [place] % (Auto) 10.0 H Eos % (Auto) 6.0 H [place] # Seg Neutrophils % Seg Neuts % (Manual) Lymphocytes % (Manual) Seg Neutrophils # Seg Neutrophils # Man Lymphocytes # (Manual) APTT POC ABG pH ABG pH POC ABG pCO2 POC ABG pO2 ABG pO2 ABG HCO3 ABG Base Excess ABG Hemoglobin VBG pH Oxyhemoglobin Sodium 132 L Potassium Chloride 92.2 L Carbon Dioxide BUN 33 H Creatinine 0.5 L Glucose 50 L POC Glucose 167 H Lactic Acid Calcium AST ALT Alkaline Phosphatase CK-MB (CK-2) CK-MB (CK-2) Rel Index Total Protein Albumin TSH Urine WBC (Auto) Salicylates 03/10/17 03/10/17 03/10/17 05:33 05:34 11:48 WBC RBC Hgb Hct MCV MCH RDW Plt Count Lymph % (Auto) [place] % (Auto) Eos % (Auto) [place] # Seg Neutrophils % Seg Neuts % (Manual) Lymphocytes % (Manual) Seg Neutrophils # Seg Neutrophils # Man Lymphocytes # (Manual) APTT POC ABG pH ABG pH POC ABG pCO2 POC ABG pO2 ABG pO2 ABG HCO3 ABG Base Excess ABG Hemoglobin VBG pH Oxyhemoglobin Sodium Potassium Chloride Carbon Dioxide BUN Creatinine Glucose POC Glucose 52 L 53 L 148 H Lactic Acid Calcium AST ALT Alkaline Phosphatase CK-MB (CK-2) CK-MB (CK-2) Rel Index Total Protein Albumin TSH Urine WBC (Auto) Salicylates 03/10/17 03/10/17 03/11/17 17:53 23:47 05:18 WBC RBC Hgb Hct MCV MCH RDW Plt Count Lymph % (Auto) [place] % (Auto) Eos % (Auto) [place] # Seg Neutrophils % Seg Neuts % (Manual) Lymphocytes % (Manual) Seg Neutrophils # Seg Neutrophils # Man Lymphocytes # (Manual) APTT POC ABG pH ABG pH POC ABG pCO2 POC ABG pO2 ABG pO2 ABG HCO3 ABG Base Excess ABG Hemoglobin VBG pH Oxyhemoglobin Sodium Potassium Chloride Carbon Dioxide BUN Creatinine Glucose POC Glucose 189 H 398 H 126 H Lactic Acid Calcium AST ALT Alkaline Phosphatase CK-MB (CK-2) CK-MB (CK-2) Rel Index Total Protein Albumin TSH Urine WBC (Auto) Salicylates 03/11/17 03/11/17 03/11/17 11:53 17:30 23:10 WBC RBC Hgb Hct MCV MCH RDW Plt Count Lymph % (Auto) [place] % (Auto) Eos % (Auto) [place] # Seg Neutrophils % Seg Neuts % (Manual) Lymphocytes % (Manual) Seg Neutrophils # Seg Neutrophils # Man Lymphocytes # (Manual) APTT POC ABG pH ABG pH POC ABG pCO2 POC ABG pO2 ABG pO2 ABG HCO3 ABG Base Excess ABG Hemoglobin VBG pH Oxyhemoglobin Sodium Potassium Chloride Carbon Dioxide BUN Creatinine Glucose POC Glucose 198 H 142 H 244 H Lactic Acid Calcium AST ALT Alkaline Phosphatase CK-MB (CK-2) CK-MB (CK-2) Rel Index Total Protein Albumin TSH Urine WBC (Auto) Salicylates 03/12/17 03/12/17 03/12/17 04:36 11:49 17:23 WBC RBC Hgb Hct MCV MCH RDW Plt Count Lymph % (Auto) [place] % (Auto) Eos % (Auto) [place] # Seg Neutrophils % Seg Neuts % (Manual) Lymphocytes % (Manual) Seg Neutrophils # Seg Neutrophils # Man Lymphocytes # (Manual) APTT POC ABG pH ABG pH POC ABG pCO2 POC ABG pO2 ABG pO2 ABG HCO3 ABG Base Excess ABG Hemoglobin VBG pH Oxyhemoglobin Sodium Potassium Chloride Carbon Dioxide BUN Creatinine Glucose POC Glucose 205 H 197 H 209 H Lactic Acid Calcium AST ALT Alkaline Phosphatase CK-MB (CK-2) CK-MB (CK-2) Rel Index Total Protein Albumin TSH Urine WBC (Auto) Salicylates 03/12/17 03/13/17 03/13/17 23:51 05:32 11:43 WBC RBC Hgb Hct MCV MCH RDW Plt Count Lymph % (Auto) [place] % (Auto) Eos % (Auto) [place] # Seg Neutrophils % Seg Neuts % (Manual) Lymphocytes % (Manual) Seg Neutrophils # Seg Neutrophils # Man Lymphocytes # (Manual) APTT POC ABG pH ABG pH POC ABG pCO2 POC ABG pO2 ABG pO2 ABG HCO3 ABG Base Excess ABG Hemoglobin VBG pH Oxyhemoglobin Sodium Potassium Chloride Carbon Dioxide BUN Creatinine Glucose POC Glucose 210 H 154 H 164 H Lactic Acid Calcium AST ALT Alkaline Phosphatase CK-MB (CK-2) CK-MB (CK-2) Rel Index Total Protein Albumin TSH Urine WBC (Auto) Salicylates 03/13/17 03/13/17 03/14/17 17:11 23:26 05:42 WBC RBC Hgb Hct MCV MCH RDW Plt Count Lymph % (Auto) [place] % (Auto) Eos % (Auto) [place] # Seg Neutrophils % Seg Neuts % (Manual) Lymphocytes % (Manual) Seg Neutrophils # Seg Neutrophils # Man Lymphocytes # (Manual) APTT POC ABG pH ABG pH POC ABG pCO2 POC ABG pO2 ABG pO2 ABG HCO3 ABG Base Excess ABG Hemoglobin VBG pH Oxyhemoglobin Sodium Potassium Chloride Carbon Dioxide BUN Creatinine Glucose POC Glucose 195 H 240 H 230 H Lactic Acid Calcium AST ALT Alkaline Phosphatase CK-MB (CK-2) CK-MB (CK-2) Rel Index Total Protein Albumin TSH Urine WBC (Auto) Salicylates 03/14/17 03/14/17 03/14/17 14:04 17:34 23:42 WBC RBC Hgb Hct MCV MCH RDW Plt Count Lymph % (Auto) [place] % (Auto) Eos % (Auto) [place] # Seg Neutrophils % Seg Neuts % (Manual) Lymphocytes % (Manual) Seg Neutrophils # Seg Neutrophils # Man Lymphocytes # (Manual) APTT POC ABG pH ABG pH POC ABG pCO2 POC ABG pO2 ABG pO2 ABG HCO3 ABG Base Excess ABG Hemoglobin VBG pH Oxyhemoglobin Sodium Potassium Chloride Carbon Dioxide BUN Creatinine Glucose POC Glucose 227 H 186 H 225 H Lactic Acid Calcium AST ALT Alkaline Phosphatase CK-MB (CK-2) CK-MB (CK-2) Rel Index Total Protein Albumin TSH Urine WBC (Auto) Salicylates 03/15/17 03/15/17 03/15/17 05:21 17:13 21:37 WBC RBC Hgb Hct MCV MCH RDW Plt Count Lymph % (Auto) [place] % (Auto) Eos % (Auto) [place] # Seg Neutrophils % Seg Neuts % (Manual) Lymphocytes % (Manual) Seg Neutrophils # Seg Neutrophils # Man Lymphocytes # (Manual) APTT POC ABG pH ABG pH POC ABG pCO2 POC ABG pO2 ABG pO2 ABG HCO3 ABG Base Excess ABG Hemoglobin VBG pH Oxyhemoglobin Sodium Potassium Chloride Carbon Dioxide BUN Creatinine Glucose POC Glucose 244 H 203 H 216 H Lactic Acid Calcium AST ALT Alkaline Phosphatase CK-MB (CK-2) CK-MB (CK-2) Rel Index Total Protein Albumin TSH Urine WBC (Auto) Salicylates 03/16/17 03/16/17 03/16/17 05:52 18:07 21:54 WBC RBC Hgb Hct MCV MCH RDW Plt Count Lymph % (Auto) [place] % (Auto) Eos % (Auto) [place] # Seg Neutrophils % Seg Neuts % (Manual) Lymphocytes % (Manual) Seg Neutrophils # Seg Neutrophils # Man Lymphocytes # (Manual) APTT POC ABG pH ABG pH POC ABG pCO2 POC ABG pO2 ABG pO2 ABG HCO3 ABG Base Excess ABG Hemoglobin VBG pH Oxyhemoglobin Sodium Potassium Chloride Carbon Dioxide BUN Creatinine Glucose POC Glucose 248 H 254 H 244 H Lactic Acid Calcium AST ALT Alkaline Phosphatase CK-MB (CK-2) CK-MB (CK-2) Rel Index Total Protein Albumin TSH Urine WBC (Auto) Salicylates 03/17/17 03/17/17 03/17/17 07:07 07:42 07:43 WBC RBC Hgb 9.7 L Hct 29.1 L MCV 78 L MCH 26 L RDW 17.4 H Plt Count Lymph % (Auto) [place] % (Auto) Eos % (Auto) [place] # Seg Neutrophils % Seg Neuts % (Manual) Lymphocytes % (Manual) Seg Neutrophils # Seg Neutrophils # Man Lymphocytes # (Manual) APTT POC ABG pH ABG pH POC ABG pCO2 POC ABG pO2 ABG pO2 ABG HCO3 ABG Base Excess ABG Hemoglobin VBG pH Oxyhemoglobin Sodium Potassium Chloride 96.6 L Carbon Dioxide BUN 30 H Creatinine 0.5 L Glucose 251 H POC Glucose 222 H Lactic Acid Calcium AST ALT Alkaline Phosphatase CK-MB (CK-2) CK-MB (CK-2) Rel Index Total Protein Albumin TSH Urine WBC (Auto) Salicylates 03/17/17 03/17/17 03/18/17 14:08 21:20 14:24 WBC RBC Hgb Hct MCV MCH RDW Plt Count Lymph % (Auto) [place] % (Auto) Eos % (Auto) [place] # Seg Neutrophils % Seg Neuts % (Manual) Lymphocytes % (Manual) Seg Neutrophils # Seg Neutrophils # Man Lymphocytes # (Manual) APTT POC ABG pH ABG pH POC ABG pCO2 POC ABG pO2 ABG pO2 ABG HCO3 ABG Base Excess ABG Hemoglobin VBG pH Oxyhemoglobin Sodium Potassium Chloride Carbon Dioxide BUN Creatinine Glucose POC Glucose 281 H 239 H 195 H Lactic Acid Calcium AST ALT Alkaline Phosphatase CK-MB (CK-2) CK-MB (CK-2) Rel Index Total Protein Albumin TSH Urine WBC (Auto) Salicylates 03/18/17 03/19/17 03/19/17 21:37 04:57 14:23 WBC RBC Hgb Hct MCV MCH RDW Plt Count Lymph % (Auto) [place] % (Auto) Eos % (Auto) [place] # Seg Neutrophils % Seg Neuts % (Manual) Lymphocytes % (Manual) Seg Neutrophils # Seg Neutrophils # Man Lymphocytes # (Manual) APTT POC ABG pH ABG pH POC ABG pCO2 POC ABG pO2 ABG pO2 ABG HCO3 ABG Base Excess ABG Hemoglobin VBG pH Oxyhemoglobin Sodium Potassium Chloride Carbon Dioxide BUN Creatinine Glucose POC Glucose 227 H 205 H 277 H Lactic Acid Calcium AST ALT Alkaline Phosphatase CK-MB (CK-2) CK-MB (CK-2) Rel Index Total Protein Albumin TSH Urine WBC (Auto) Salicylates 03/19/17 03/19/17 03/20/17 20:31 21:47 04:55 WBC RBC Hgb Hct MCV MCH RDW Plt Count Lymph % (Auto) [place] % (Auto) Eos % (Auto) [place] # Seg Neutrophils % Seg Neuts % (Manual) Lymphocytes % (Manual) Seg Neutrophils # Seg Neutrophils # Man Lymphocytes # (Manual) APTT POC ABG pH ABG pH POC ABG pCO2 POC ABG pO2 ABG pO2 ABG HCO3 ABG Base Excess ABG Hemoglobin VBG pH Oxyhemoglobin Sodium Potassium Chloride Carbon Dioxide BUN Creatinine Glucose POC Glucose 256 H 270 H 202 H Lactic Acid Calcium AST ALT Alkaline Phosphatase CK-MB (CK-2) CK-MB (CK-2) Rel Index Total Protein Albumin TSH Urine WBC (Auto) Salicylates 03/20/17 03/20/17 03/21/17 14:09 21:40 05:09 WBC RBC Hgb Hct MCV MCH RDW Plt Count Lymph % (Auto) [place] % (Auto) Eos % (Auto) [place] # Seg Neutrophils % Seg Neuts % (Manual) Lymphocytes % (Manual) Seg Neutrophils # Seg Neutrophils # Man Lymphocytes # (Manual) APTT POC ABG pH ABG pH POC ABG pCO2 POC ABG pO2 ABG pO2 ABG HCO3 ABG Base Excess ABG Hemoglobin VBG pH Oxyhemoglobin Sodium Potassium Chloride Carbon Dioxide BUN Creatinine Glucose POC Glucose 200 H 214 H 233 H Lactic Acid Calcium AST ALT Alkaline Phosphatase CK-MB (CK-2) CK-MB (CK-2) Rel Index Total Protein Albumin TSH Urine WBC (Auto) Salicylates 03/21/17 03/21/17 03/22/17 14:06 21:26 05:43 WBC RBC Hgb Hct MCV MCH RDW Plt Count Lymph % (Auto) [place] % (Auto) Eos % (Auto) [place] # Seg Neutrophils % Seg Neuts % (Manual) Lymphocytes % (Manual) Seg Neutrophils # Seg Neutrophils # Man Lymphocytes # (Manual) APTT POC ABG pH ABG pH POC ABG pCO2 POC ABG pO2 ABG pO2 ABG HCO3 ABG Base Excess ABG Hemoglobin VBG pH Oxyhemoglobin Sodium Potassium Chloride Carbon Dioxide BUN Creatinine Glucose POC Glucose 250 H 155 H 251 H Lactic Acid Calcium AST ALT Alkaline Phosphatase CK-MB (CK-2) CK-MB (CK-2) Rel Index Total Protein Albumin TSH Urine WBC (Auto) Salicylates 03/22/17 03/22/17 03/23/17 13:46 21:16 00:23 WBC RBC Hgb Hct MCV MCH RDW Plt Count Lymph % (Auto) [place] % (Auto) Eos % (Auto) [place] # Seg Neutrophils % Seg Neuts % (Manual) Lymphocytes % (Manual) Seg Neutrophils # Seg Neutrophils # Man Lymphocytes # (Manual) APTT POC ABG pH ABG pH POC ABG pCO2 POC ABG pO2 ABG pO2 ABG HCO3 ABG Base Excess ABG Hemoglobin VBG pH Oxyhemoglobin Sodium Potassium Chloride Carbon Dioxide BUN Creatinine Glucose POC Glucose 269 H 197 H 126 H Lactic Acid Calcium AST ALT Alkaline Phosphatase CK-MB (CK-2) CK-MB (CK-2) Rel Index Total Protein Albumin TSH Urine WBC (Auto) Salicylates 03/23/17 03/23/17 03/23/17 05:39 14:06 21:39 WBC RBC Hgb Hct MCV MCH RDW Plt Count Lymph % (Auto) [place] % (Auto) Eos % (Auto) [place] # Seg Neutrophils % Seg Neuts % (Manual) Lymphocytes % (Manual) Seg Neutrophils # Seg Neutrophils # Man Lymphocytes # (Manual) APTT POC ABG pH ABG pH POC ABG pCO2 POC ABG pO2 ABG pO2 ABG HCO3 ABG Base Excess ABG Hemoglobin VBG pH Oxyhemoglobin Sodium Potassium Chloride Carbon Dioxide BUN Creatinine Glucose POC Glucose 234 H 241 H 248 H Lactic Acid Calcium AST ALT Alkaline Phosphatase CK-MB (CK-2) CK-MB (CK-2) Rel Index Total Protein Albumin TSH Urine WBC (Auto) Salicylates 03/24/17 03/24/17 03/25/17 05:06 21:46 05:38 WBC RBC Hgb Hct MCV MCH RDW Plt Count Lymph % (Auto) [place] % (Auto) Eos % (Auto) [place] # Seg Neutrophils % Seg Neuts % (Manual) Lymphocytes % (Manual) Seg Neutrophils # Seg Neutrophils # Man Lymphocytes # (Manual) APTT POC ABG pH ABG pH POC ABG pCO2 POC ABG pO2 ABG pO2 ABG HCO3 ABG Base Excess ABG Hemoglobin VBG pH Oxyhemoglobin Sodium Potassium Chloride Carbon Dioxide BUN Creatinine Glucose POC Glucose 232 H 276 H 242 H Lactic Acid Calcium AST ALT Alkaline Phosphatase CK-MB (CK-2) CK-MB (CK-2) Rel Index Total Protein Albumin TSH Urine WBC (Auto) Salicylates 03/25/17 03/25/17 03/26/17 14:30 23:14 13:53 WBC RBC Hgb Hct MCV MCH RDW Plt Count Lymph % (Auto) [place] % (Auto) Eos % (Auto) [place] # Seg Neutrophils % Seg Neuts % (Manual) Lymphocytes % (Manual) Seg Neutrophils # Seg Neutrophils # Man Lymphocytes # (Manual) APTT POC ABG pH ABG pH POC ABG pCO2 POC ABG pO2 ABG pO2 ABG HCO3 ABG Base Excess ABG Hemoglobin VBG pH Oxyhemoglobin Sodium Potassium Chloride Carbon Dioxide BUN Creatinine Glucose POC Glucose 246 H 208 H 195 H Lactic Acid Calcium AST ALT Alkaline Phosphatase CK-MB (CK-2) CK-MB (CK-2) Rel Index Total Protein Albumin TSH Urine WBC (Auto) Salicylates 03/26/17 03/27/17 03/27/17 21:58 05:18 14:57 WBC RBC Hgb Hct MCV MCH RDW Plt Count Lymph % (Auto) [place] % (Auto) Eos % (Auto) [place] # Seg Neutrophils % Seg Neuts % (Manual) Lymphocytes % (Manual) Seg Neutrophils # Seg Neutrophils # Man Lymphocytes # (Manual) APTT POC ABG pH ABG pH POC ABG pCO2 POC ABG pO2 ABG pO2 ABG HCO3 ABG Base Excess ABG Hemoglobin VBG pH Oxyhemoglobin Sodium Potassium Chloride Carbon Dioxide BUN Creatinine Glucose POC Glucose 241 H 199 H 269 H Lactic Acid Calcium AST ALT Alkaline Phosphatase CK-MB (CK-2) CK-MB (CK-2) Rel Index Total Protein Albumin TSH Urine WBC (Auto) Salicylates 03/27/17 03/28/17 03/28/17 21:33 13:52 21:29 WBC RBC Hgb Hct MCV MCH RDW Plt Count Lymph % (Auto) [place] % (Auto) Eos % (Auto) [place] # Seg Neutrophils % Seg Neuts % (Manual) Lymphocytes % (Manual) Seg Neutrophils # Seg Neutrophils # Man Lymphocytes # (Manual) APTT POC ABG pH ABG pH POC ABG pCO2 POC ABG pO2 ABG pO2 ABG HCO3 ABG Base Excess ABG Hemoglobin VBG pH Oxyhemoglobin Sodium Potassium Chloride Carbon Dioxide BUN Creatinine Glucose POC Glucose 214 H 243 H 286 H Lactic Acid Calcium AST ALT Alkaline Phosphatase CK-MB (CK-2) CK-MB (CK-2) Rel Index Total Protein Albumin TSH Urine WBC (Auto) Salicylates 03/29/17 03/29/17 03/29/17 04:32 04:32 13:58 WBC RBC Hgb 10.6 L Hct 32.9 L MCV 78 L MCH 25 L RDW 17.6 H Plt Count Lymph % (Auto) 38.0 H [place] % (Auto) 9.7 H Eos % (Auto) [place] # Seg Neutrophils % Seg Neuts % (Manual) Lymphocytes % (Manual) Seg Neutrophils # Seg Neutrophils # Man Lymphocytes # (Manual) APTT POC ABG pH ABG pH POC ABG pCO2 POC ABG pO2 ABG pO2 ABG HCO3 ABG Base Excess ABG Hemoglobin VBG pH Oxyhemoglobin Sodium 132 L Potassium Chloride 94.0 L Carbon Dioxide BUN 28 H Creatinine 0.5 L Glucose 236 H POC Glucose 171 H Lactic Acid Calcium AST ALT 71 H Alkaline Phosphatase 391 H CK-MB (CK-2) CK-MB (CK-2) Rel Index Total Protein 8.3 H Albumin 2.9 L TSH Urine WBC (Auto) Salicylates 03/29/17 03/30/17 03/30/17 20:59 06:07 11:52 WBC RBC Hgb Hct MCV MCH RDW Plt Count Lymph % (Auto) [place] % (Auto) Eos % (Auto) [place] # Seg Neutrophils % Seg Neuts % (Manual) Lymphocytes % (Manual) Seg Neutrophils # Seg Neutrophils # Man Lymphocytes # (Manual) APTT POC ABG pH ABG pH POC ABG pCO2 POC ABG pO2 ABG pO2 ABG HCO3 ABG Base Excess ABG Hemoglobin VBG pH Oxyhemoglobin Sodium Potassium Chloride Carbon Dioxide BUN Creatinine Glucose POC Glucose 215 H 259 H 197 H Lactic Acid Calcium AST ALT Alkaline Phosphatase CK-MB (CK-2) CK-MB (CK-2) Rel Index Total Protein Albumin TSH Urine WBC (Auto) Salicylates 03/30/17 03/31/17 03/31/17 21:34 05:42 14:34 WBC RBC Hgb Hct MCV MCH RDW Plt Count Lymph % (Auto) [place] % (Auto) Eos % (Auto) [place] # Seg Neutrophils % Seg Neuts % (Manual) Lymphocytes % (Manual) Seg Neutrophils # Seg Neutrophils # Man Lymphocytes # (Manual) APTT POC ABG pH ABG pH POC ABG pCO2 POC ABG pO2 ABG pO2 ABG HCO3 ABG Base Excess ABG Hemoglobin VBG pH Oxyhemoglobin Sodium Potassium Chloride Carbon Dioxide BUN Creatinine Glucose POC Glucose 207 H 184 H 213 H Lactic Acid Calcium AST ALT Alkaline Phosphatase CK-MB (CK-2) CK-MB (CK-2) Rel Index Total Protein Albumin TSH Urine WBC (Auto) Salicylates 03/31/17 04/01/17 04/01/17 21:32 05:53 13:48 WBC RBC Hgb Hct MCV MCH RDW Plt Count Lymph % (Auto) [place] % (Auto) Eos % (Auto) [place] # Seg Neutrophils % Seg Neuts % (Manual) Lymphocytes % (Manual) Seg Neutrophils # Seg Neutrophils # Man Lymphocytes # (Manual) APTT POC ABG pH ABG pH POC ABG pCO2 POC ABG pO2 ABG pO2 ABG HCO3 ABG Base Excess ABG Hemoglobin VBG pH Oxyhemoglobin Sodium Potassium Chloride Carbon Dioxide BUN Creatinine Glucose POC Glucose 249 H 225 H 256 H Lactic Acid Calcium AST ALT Alkaline Phosphatase CK-MB (CK-2) CK-MB (CK-2) Rel Index Total Protein Albumin TSH Urine WBC (Auto) Salicylates 04/01/17 04/02/17 04/02/17 21:34 05:32 14:05 WBC RBC Hgb Hct MCV MCH RDW Plt Count Lymph % (Auto) [place] % (Auto) Eos % (Auto) [place] # Seg Neutrophils % Seg Neuts % (Manual) Lymphocytes % (Manual) Seg Neutrophils # Seg Neutrophils # Man Lymphocytes # (Manual) APTT POC ABG pH ABG pH POC ABG pCO2 POC ABG pO2 ABG pO2 ABG HCO3 ABG Base Excess ABG Hemoglobin VBG pH Oxyhemoglobin Sodium Potassium Chloride Carbon Dioxide BUN Creatinine Glucose POC Glucose 292 H 220 H 187 H Lactic Acid Calcium AST ALT Alkaline Phosphatase CK-MB (CK-2) CK-MB (CK-2) Rel Index Total Protein Albumin TSH Urine WBC (Auto) Salicylates 04/02/17 04/03/17 04/03/17 21:57 04:49 14:12 WBC RBC Hgb Hct MCV MCH RDW Plt Count Lymph % (Auto) [place] % (Auto) Eos % (Auto) [place] # Seg Neutrophils % Seg Neuts % (Manual) Lymphocytes % (Manual) Seg Neutrophils # Seg Neutrophils # Man Lymphocytes # (Manual) APTT POC ABG pH ABG pH POC ABG pCO2 POC ABG pO2 ABG pO2 ABG HCO3 ABG Base Excess ABG Hemoglobin VBG pH Oxyhemoglobin Sodium Potassium Chloride Carbon Dioxide BUN Creatinine Glucose POC Glucose 285 H 256 H 197 H Lactic Acid Calcium AST ALT Alkaline Phosphatase CK-MB (CK-2) CK-MB (CK-2) Rel Index Total Protein Albumin TSH Urine WBC (Auto) Salicylates 04/03/17 04/04/17 04/04/17 21:11 05:20 13:18 WBC RBC Hgb Hct MCV MCH RDW Plt Count Lymph % (Auto) [place] % (Auto) Eos % (Auto) [place] # Seg Neutrophils % Seg Neuts % (Manual) Lymphocytes % (Manual) Seg Neutrophils # Seg Neutrophils # Man Lymphocytes # (Manual) APTT POC ABG pH ABG pH POC ABG pCO2 POC ABG pO2 ABG pO2 ABG HCO3 ABG Base Excess ABG Hemoglobin VBG pH Oxyhemoglobin Sodium Potassium Chloride Carbon Dioxide BUN Creatinine Glucose POC Glucose 166 H 228 H 252 H Lactic Acid Calcium AST ALT Alkaline Phosphatase CK-MB (CK-2) CK-MB (CK-2) Rel Index Total Protein Albumin TSH Urine WBC (Auto) Salicylates 04/04/17 04/05/17 04/05/17 21:51 06:14 09:54 WBC RBC Hgb Hct MCV MCH RDW Plt Count Lymph % (Auto) [place] % (Auto) Eos % (Auto) [place] # Seg Neutrophils % Seg Neuts % (Manual) Lymphocytes % (Manual) Seg Neutrophils # Seg Neutrophils # Man Lymphocytes # (Manual) APTT POC ABG pH ABG pH POC ABG pCO2 POC ABG pO2 ABG pO2 ABG HCO3 ABG Base Excess ABG Hemoglobin VBG pH Oxyhemoglobin Sodium Potassium Chloride Carbon Dioxide BUN Creatinine Glucose POC Glucose 252 H 152 H 181 H Lactic Acid Calcium AST ALT Alkaline Phosphatase CK-MB (CK-2) CK-MB (CK-2) Rel Index Total Protein Albumin TSH Urine WBC (Auto) Salicylates 04/05/17 04/05/17 04/05/17 14:49 17:34 21:38 WBC RBC Hgb Hct MCV MCH RDW Plt Count Lymph % (Auto) [place] % (Auto) Eos % (Auto) [place] # Seg Neutrophils % Seg Neuts % (Manual) Lymphocytes % (Manual) Seg Neutrophils # Seg Neutrophils # Man Lymphocytes # (Manual) APTT POC ABG pH ABG pH POC ABG pCO2 POC ABG pO2 ABG pO2 ABG HCO3 ABG Base Excess ABG Hemoglobin VBG pH Oxyhemoglobin Sodium Potassium Chloride Carbon Dioxide BUN Creatinine Glucose POC Glucose 219 H 268 H 278 H Lactic Acid Calcium AST ALT Alkaline Phosphatase CK-MB (CK-2) CK-MB (CK-2) Rel Index Total Protein Albumin TSH Urine WBC (Auto) Salicylates 04/06/17 04/06/17 04/07/17 15:04 22:14 05:09 WBC RBC Hgb Hct MCV MCH RDW Plt Count Lymph % (Auto) [place] % (Auto) Eos % (Auto) [place] # Seg Neutrophils % Seg Neuts % (Manual) Lymphocytes % (Manual) Seg Neutrophils # Seg Neutrophils # Man Lymphocytes # (Manual) APTT POC ABG pH ABG pH POC ABG pCO2 POC ABG pO2 ABG pO2 ABG HCO3 ABG Base Excess ABG Hemoglobin VBG pH Oxyhemoglobin Sodium Potassium Chloride Carbon Dioxide BUN Creatinine Glucose POC Glucose 285 H 106 H 334 H Lactic Acid Calcium AST ALT Alkaline Phosphatase CK-MB (CK-2) CK-MB (CK-2) Rel Index Total Protein Albumin TSH Urine WBC (Auto) Salicylates 04/07/17 04/07/17 04/08/17 14:45 21:48 05:28 WBC RBC Hgb Hct MCV MCH RDW Plt Count Lymph % (Auto) [place] % (Auto) Eos % (Auto) [place] # Seg Neutrophils % Seg Neuts % (Manual) Lymphocytes % (Manual) Seg Neutrophils # Seg Neutrophils # Man Lymphocytes # (Manual) APTT POC ABG pH ABG pH POC ABG pCO2 POC ABG pO2 ABG pO2 ABG HCO3 ABG Base Excess ABG Hemoglobin VBG pH Oxyhemoglobin Sodium Potassium Chloride Carbon Dioxide BUN Creatinine Glucose POC Glucose 173 H 304 H 314 H Lactic Acid Calcium AST ALT Alkaline Phosphatase CK-MB (CK-2) CK-MB (CK-2) Rel Index Total Protein Albumin TSH Urine WBC (Auto) Salicylates 04/08/17 04/08/17 04/08/17 15:57 16:17 22:21 WBC RBC Hgb Hct MCV MCH RDW Plt Count Lymph % (Auto) [place] % (Auto) Eos % (Auto) [place] # Seg Neutrophils % Seg Neuts % (Manual) Lymphocytes % (Manual) Seg Neutrophils # Seg Neutrophils # Man Lymphocytes # (Manual) APTT POC ABG pH ABG pH POC ABG pCO2 POC ABG pO2 ABG pO2 ABG HCO3 ABG Base Excess ABG Hemoglobin VBG pH Oxyhemoglobin Sodium Potassium Chloride Carbon Dioxide BUN Creatinine Glucose POC Glucose 356 H 337 H 323 H Lactic Acid Calcium AST ALT Alkaline Phosphatase CK-MB (CK-2) CK-MB (CK-2) Rel Index Total Protein Albumin TSH Urine WBC (Auto) Salicylates 04/09/17 04/09/17 04/09/17 06:19 15:30 21:52 WBC RBC Hgb Hct MCV MCH RDW Plt Count Lymph % (Auto) [place] % (Auto) Eos % (Auto) [place] # Seg Neutrophils % Seg Neuts % (Manual) Lymphocytes % (Manual) Seg Neutrophils # Seg Neutrophils # Man Lymphocytes # (Manual) APTT POC ABG pH ABG pH POC ABG pCO2 POC ABG pO2 ABG pO2 ABG HCO3 ABG Base Excess ABG Hemoglobin VBG pH Oxyhemoglobin Sodium Potassium Chloride Carbon Dioxide BUN Creatinine Glucose POC Glucose 340 H 332 H 341 H Lactic Acid Calcium AST ALT Alkaline Phosphatase CK-MB (CK-2) CK-MB (CK-2) Rel Index Total Protein Albumin TSH Urine WBC (Auto) Salicylates 04/10/17 04/10/17 04/10/17 01:53 05:33 17:40 WBC RBC Hgb Hct MCV MCH RDW Plt Count Lymph % (Auto) [place] % (Auto) Eos % (Auto) [place] # Seg Neutrophils % Seg Neuts % (Manual) Lymphocytes % (Manual) Seg Neutrophils # Seg Neutrophils # Man Lymphocytes # (Manual) APTT POC ABG pH ABG pH POC ABG pCO2 POC ABG pO2 ABG pO2 ABG HCO3 ABG Base Excess ABG Hemoglobin VBG pH Oxyhemoglobin Sodium Potassium Chloride Carbon Dioxide BUN Creatinine Glucose POC Glucose 261 H 277 H 304 H Lactic Acid Calcium AST ALT Alkaline Phosphatase CK-MB (CK-2) CK-MB (CK-2) Rel Index Total Protein Albumin TSH Urine WBC (Auto) Salicylates 04/10/17 04/11/17 04/11/17 21:29 05:28 14:02 WBC RBC Hgb Hct MCV MCH RDW Plt Count Lymph % (Auto) [place] % (Auto) Eos % (Auto) [place] # Seg Neutrophils % Seg Neuts % (Manual) Lymphocytes % (Manual) Seg Neutrophils # Seg Neutrophils # Man Lymphocytes # (Manual) APTT POC ABG pH ABG pH POC ABG pCO2 POC ABG pO2 ABG pO2 ABG HCO3 ABG Base Excess ABG Hemoglobin VBG pH Oxyhemoglobin Sodium Potassium Chloride Carbon Dioxide BUN Creatinine Glucose POC Glucose 361 H 204 H 236 H Lactic Acid Calcium AST ALT Alkaline Phosphatase CK-MB (CK-2) CK-MB (CK-2) Rel Index Total Protein Albumin TSH Urine WBC (Auto) Salicylates 04/11/17 04/12/17 04/12/17 21:43 05:00 11:53 WBC RBC Hgb Hct MCV MCH RDW Plt Count Lymph % (Auto) [place] % (Auto) Eos % (Auto) [place] # Seg Neutrophils % Seg Neuts % (Manual) Lymphocytes % (Manual) Seg Neutrophils # Seg Neutrophils # Man Lymphocytes # (Manual) APTT POC ABG pH ABG pH POC ABG pCO2 POC ABG pO2 ABG pO2 ABG HCO3 ABG Base Excess ABG Hemoglobin VBG pH Oxyhemoglobin Sodium Potassium Chloride Carbon Dioxide BUN Creatinine Glucose POC Glucose 287 H 294 H 265 H Lactic Acid Calcium AST ALT Alkaline Phosphatase CK-MB (CK-2) CK-MB (CK-2) Rel Index Total Protein Albumin TSH Urine WBC (Auto) Salicylates 04/12/17 04/12/17 04/13/17 21:21 23:44 06:05 WBC RBC Hgb Hct MCV MCH RDW Plt Count Lymph % (Auto) [place] % (Auto) Eos % (Auto) [place] # Seg Neutrophils % Seg Neuts % (Manual) Lymphocytes % (Manual) Seg Neutrophils # Seg Neutrophils # Man Lymphocytes # (Manual) APTT POC ABG pH ABG pH POC ABG pCO2 POC ABG pO2 ABG pO2 ABG HCO3 ABG Base Excess ABG Hemoglobin VBG pH Oxyhemoglobin Sodium Potassium Chloride Carbon Dioxide BUN Creatinine Glucose POC Glucose 289 H 348 H 326 H Lactic Acid Calcium AST ALT Alkaline Phosphatase CK-MB (CK-2) CK-MB (CK-2) Rel Index Total Protein Albumin TSH Urine WBC (Auto) Salicylates 04/13/17 04/13/17 04/14/17 13:54 21:15 05:49 WBC RBC Hgb Hct MCV MCH RDW Plt Count Lymph % (Auto) [place] % (Auto) Eos % (Auto) [place] # Seg Neutrophils % Seg Neuts % (Manual) Lymphocytes % (Manual) Seg Neutrophils # Seg Neutrophils # Man Lymphocytes # (Manual) APTT POC ABG pH ABG pH POC ABG pCO2 POC ABG pO2 ABG pO2 ABG HCO3 ABG Base Excess ABG Hemoglobin VBG pH Oxyhemoglobin Sodium Potassium Chloride Carbon Dioxide BUN Creatinine Glucose POC Glucose 326 H 263 H 319 H Lactic Acid Calcium AST ALT Alkaline Phosphatase CK-MB (CK-2) CK-MB (CK-2) Rel Index Total Protein Albumin TSH Urine WBC (Auto) Salicylates 04/14/17 04/14/17 04/15/17 13:26 23:13 14:24 WBC RBC Hgb Hct MCV MCH RDW Plt Count Lymph % (Auto) [place] % (Auto) Eos % (Auto) [place] # Seg Neutrophils % Seg Neuts % (Manual) Lymphocytes % (Manual) Seg Neutrophils # Seg Neutrophils # Man Lymphocytes # (Manual) APTT POC ABG pH ABG pH POC ABG pCO2 POC ABG pO2 ABG pO2 ABG HCO3 ABG Base Excess ABG Hemoglobin VBG pH Oxyhemoglobin Sodium Potassium Chloride Carbon Dioxide BUN Creatinine Glucose POC Glucose 207 H 365 H 308 H Lactic Acid Calcium AST ALT Alkaline Phosphatase CK-MB (CK-2) CK-MB (CK-2) Rel Index Total Protein Albumin TSH Urine WBC (Auto) Salicylates 04/15/17 04/15/17 04/15/17 21:00 22:18 23:12 WBC RBC Hgb Hct MCV MCH RDW Plt Count Lymph % (Auto) [place] % (Auto) Eos % (Auto) [place] # Seg Neutrophils % Seg Neuts % (Manual) Lymphocytes % (Manual) Seg Neutrophils # Seg Neutrophils # Man Lymphocytes # (Manual) APTT POC ABG pH ABG pH POC ABG pCO2 POC ABG pO2 ABG pO2 ABG HCO3 ABG Base Excess ABG Hemoglobin VBG pH Oxyhemoglobin Sodium Potassium Chloride Carbon Dioxide BUN Creatinine Glucose POC Glucose 407 H 287 H 325 H Lactic Acid Calcium AST ALT Alkaline Phosphatase CK-MB (CK-2) CK-MB (CK-2) Rel Index Total Protein Albumin TSH Urine WBC (Auto) Salicylates 04/16/17 04/16/17 04/16/17 05:30 10:07 14:26 WBC RBC Hgb Hct MCV MCH RDW Plt Count Lymph % (Auto) [place] % (Auto) Eos % (Auto) [place] # Seg Neutrophils % Seg Neuts % (Manual) Lymphocytes % (Manual) Seg Neutrophils # Seg Neutrophils # Man Lymphocytes # (Manual) APTT POC ABG pH ABG pH POC ABG pCO2 POC ABG pO2 ABG pO2 ABG HCO3 ABG Base Excess ABG Hemoglobin VBG pH Oxyhemoglobin Sodium Potassium Chloride Carbon Dioxide BUN Creatinine Glucose POC Glucose 304 H 217 H 344 H Lactic Acid Calcium AST ALT Alkaline Phosphatase CK-MB (CK-2) CK-MB (CK-2) Rel Index Total Protein Albumin TSH Urine WBC (Auto) Salicylates 04/16/17 04/17/17 04/17/17 21:25 05:12 14:19 WBC RBC Hgb Hct MCV MCH RDW Plt Count Lymph % (Auto) [place] % (Auto) Eos % (Auto) [place] # Seg Neutrophils % Seg Neuts % (Manual) Lymphocytes % (Manual) Seg Neutrophils # Seg Neutrophils # Man Lymphocytes # (Manual) APTT POC ABG pH ABG pH POC ABG pCO2 POC ABG pO2 ABG pO2 ABG HCO3 ABG Base Excess ABG Hemoglobin VBG pH Oxyhemoglobin Sodium Potassium Chloride Carbon Dioxide BUN Creatinine Glucose POC Glucose 305 H 233 H 324 H Lactic Acid Calcium AST ALT Alkaline Phosphatase CK-MB (CK-2) CK-MB (CK-2) Rel Index Total Protein Albumin TSH Urine WBC (Auto) Salicylates 04/17/17 04/18/17 04/18/17 21:42 06:21 14:08 WBC RBC Hgb Hct MCV MCH RDW Plt Count Lymph % (Auto) [place] % (Auto) Eos % (Auto) [place] # Seg Neutrophils % Seg Neuts % (Manual) Lymphocytes % (Manual) Seg Neutrophils # Seg Neutrophils # Man Lymphocytes # (Manual) APTT POC ABG pH ABG pH POC ABG pCO2 POC ABG pO2 ABG pO2 ABG HCO3 ABG Base Excess ABG Hemoglobin VBG pH Oxyhemoglobin Sodium Potassium Chloride Carbon Dioxide BUN Creatinine Glucose POC Glucose 270 H 308 H 290 H Lactic Acid Calcium AST ALT Alkaline Phosphatase CK-MB (CK-2) CK-MB (CK-2) Rel Index Total Protein Albumin TSH Urine WBC (Auto) Salicylates 04/18/17 04/19/17 04/19/17 21:50 05:20 13:59 WBC RBC Hgb Hct MCV MCH RDW Plt Count Lymph % (Auto) [place] % (Auto) Eos % (Auto) [place] # Seg Neutrophils % Seg Neuts % (Manual) Lymphocytes % (Manual) Seg Neutrophils # Seg Neutrophils # Man Lymphocytes # (Manual) APTT POC ABG pH ABG pH POC ABG pCO2 POC ABG pO2 ABG pO2 ABG HCO3 ABG Base Excess ABG Hemoglobin VBG pH Oxyhemoglobin Sodium Potassium Chloride Carbon Dioxide BUN Creatinine Glucose POC Glucose 167 H 372 H 321 H Lactic Acid Calcium AST ALT Alkaline Phosphatase CK-MB (CK-2) CK-MB (CK-2) Rel Index Total Protein Albumin TSH Urine WBC (Auto) Salicylates 04/19/17 04/20/17 04/20/17 21:16 14:18 21:34 WBC RBC Hgb Hct MCV MCH RDW Plt Count Lymph % (Auto) [place] % (Auto) Eos % (Auto) [place] # Seg Neutrophils % Seg Neuts % (Manual) Lymphocytes % (Manual) Seg Neutrophils # Seg Neutrophils # Man Lymphocytes # (Manual) APTT POC ABG pH ABG pH POC ABG pCO2 POC ABG pO2 ABG pO2 ABG HCO3 ABG Base Excess ABG Hemoglobin VBG pH Oxyhemoglobin Sodium Potassium Chloride Carbon Dioxide BUN Creatinine Glucose POC Glucose 182 H 218 H 121 H Lactic Acid Calcium AST ALT Alkaline Phosphatase CK-MB (CK-2) CK-MB (CK-2) Rel Index Total Protein Albumin TSH Urine WBC (Auto) Salicylates 04/21/17 04/21/17 04/21/17 00:08 05:16 12:41 WBC RBC Hgb Hct MCV MCH RDW Plt Count Lymph % (Auto) [place] % (Auto) Eos % (Auto) [place] # Seg Neutrophils % Seg Neuts % (Manual) Lymphocytes % (Manual) Seg Neutrophils # Seg Neutrophils # Man Lymphocytes # (Manual) APTT POC ABG pH ABG pH POC ABG pCO2 POC ABG pO2 ABG pO2 ABG HCO3 ABG Base Excess ABG Hemoglobin VBG pH Oxyhemoglobin Sodium Potassium Chloride Carbon Dioxide BUN Creatinine Glucose POC Glucose 128 H 120 H 216 H Lactic Acid Calcium AST ALT Alkaline Phosphatase CK-MB (CK-2) CK-MB (CK-2) Rel Index Total Protein Albumin TSH Urine WBC (Auto) Salicylates 04/21/17 04/22/17 04/22/17 23:40 14:12 23:38 WBC RBC Hgb Hct MCV MCH RDW Plt Count Lymph % (Auto) [place] % (Auto) Eos % (Auto) [place] # Seg Neutrophils % Seg Neuts % (Manual) Lymphocytes % (Manual) Seg Neutrophils # Seg Neutrophils # Man Lymphocytes # (Manual) APTT POC ABG pH ABG pH POC ABG pCO2 POC ABG pO2 ABG pO2 ABG HCO3 ABG Base Excess ABG Hemoglobin VBG pH Oxyhemoglobin Sodium Potassium Chloride Carbon Dioxide BUN Creatinine Glucose POC Glucose 157 H 242 H 117 H Lactic Acid Calcium AST ALT Alkaline Phosphatase CK-MB (CK-2) CK-MB (CK-2) Rel Index Total Protein Albumin TSH Urine WBC (Auto) Salicylates 04/23/17 04/23/17 04/24/17 05:18 14:01 03:24 WBC RBC Hgb Hct MCV MCH RDW Plt Count Lymph % (Auto) [place] % (Auto) Eos % (Auto) [place] # Seg Neutrophils % Seg Neuts % (Manual) Lymphocytes % (Manual) Seg Neutrophils # Seg Neutrophils # Man Lymphocytes # (Manual) APTT POC ABG pH ABG pH POC ABG pCO2 POC ABG pO2 ABG pO2 ABG HCO3 ABG Base Excess ABG Hemoglobin VBG pH Oxyhemoglobin Sodium Potassium Chloride Carbon Dioxide BUN Creatinine Glucose POC Glucose 163 H 57 L 177 H Lactic Acid Calcium AST ALT Alkaline Phosphatase CK-MB (CK-2) CK-MB (CK-2) Rel Index Total Protein Albumin TSH Urine WBC (Auto) Salicylates 04/24/17 04/24/17 04/24/17 04:00 04:00 06:33 WBC RBC Hgb 9.9 L Hct 30.0 L MCV 79 L MCH 26 L RDW 17.1 H Plt Count 625 H Lymph % (Auto) [place] % (Auto) 8.4 H Eos % (Auto) [place] # Seg Neutrophils % Seg Neuts % (Manual) Lymphocytes % (Manual) Seg Neutrophils # Seg Neutrophils # Man Lymphocytes # (Manual) APTT POC ABG pH ABG pH POC ABG pCO2 POC ABG pO2 ABG pO2 ABG HCO3 ABG Base Excess ABG Hemoglobin VBG pH Oxyhemoglobin Sodium 136 L Potassium Chloride 94.9 L Carbon Dioxide BUN 40 H Creatinine 0.6 L Glucose 176 H POC Glucose 230 H Lactic Acid Calcium AST 67 H ALT Alkaline Phosphatase 294 H CK-MB (CK-2) CK-MB (CK-2) Rel Index Total Protein 9.0 H Albumin 2.5 L TSH Urine WBC (Auto) Salicylates 04/24/17 04/25/17 04/25/17 13:50 00:22 02:55 WBC RBC 3.54 L Hgb 9.0 L Hct 27.9 L MCV 79 L MCH 26 L RDW 17.5 H Plt Count 574 H Lymph % (Auto) [place] % (Auto) 10.4 H Eos % (Auto) [place] # 1.0 H Seg Neutrophils % Seg Neuts % (Manual) Lymphocytes % (Manual) Seg Neutrophils # Seg Neutrophils # Man Lymphocytes # (Manual) APTT POC ABG pH ABG pH POC ABG pCO2 POC ABG pO2 ABG pO2 ABG HCO3 ABG Base Excess ABG Hemoglobin VBG pH Oxyhemoglobin Sodium Potassium Chloride Carbon Dioxide BUN Creatinine Glucose POC Glucose 116 H < 40 L Lactic Acid Calcium AST ALT Alkaline Phosphatase CK-MB (CK-2) CK-MB (CK-2) Rel Index Total Protein Albumin TSH Urine WBC (Auto) Salicylates 04/25/17 04/25/17 04/25/17 02:55 11:15 18:36 WBC RBC Hgb Hct MCV MCH RDW Plt Count Lymph % (Auto) [place] % (Auto) Eos % (Auto) [place] # Seg Neutrophils % Seg Neuts % (Manual) Lymphocytes % (Manual) Seg Neutrophils # Seg Neutrophils # Man Lymphocytes # (Manual) APTT POC ABG pH ABG pH POC ABG pCO2 POC ABG pO2 ABG pO2 ABG HCO3 ABG Base Excess ABG Hemoglobin VBG pH Oxyhemoglobin Sodium Potassium Chloride 96.2 L Carbon Dioxide BUN 39 H Creatinine 0.7 L Glucose 125 H POC Glucose 227 H 280 H Lactic Acid Calcium AST ALT Alkaline Phosphatase 247 H CK-MB (CK-2) CK-MB (CK-2) Rel Index Total Protein Albumin 2.7 L TSH Urine WBC (Auto) Salicylates 04/25/17 04/26/17 04/26/17 21:49 06:53 07:27 WBC RBC 3.61 L Hgb 9.1 L Hct 28.1 L MCV 78 L MCH 25 L RDW 17.4 H Plt Count 594 H Lymph % (Auto) [place] % (Auto) 9.2 H Eos % (Auto) [place] # 1.0 H Seg Neutrophils % 70.6 H Seg Neuts % (Manual) Lymphocytes % (Manual) Seg Neutrophils # Seg Neutrophils # Man Lymphocytes # (Manual) APTT POC ABG pH ABG pH POC ABG pCO2 POC ABG pO2 ABG pO2 ABG HCO3 ABG Base Excess ABG Hemoglobin VBG pH Oxyhemoglobin Sodium Potassium Chloride Carbon Dioxide BUN Creatinine Glucose POC Glucose 192 H 60 L Lactic Acid Calcium AST ALT Alkaline Phosphatase CK-MB (CK-2) CK-MB (CK-2) Rel Index Total Protein Albumin TSH Urine WBC (Auto) Salicylates 04/26/17 04/26/17 04/26/17 07:27 07:28 13:32 WBC RBC Hgb Hct MCV MCH RDW Plt Count Lymph % (Auto) [place] % (Auto) Eos % (Auto) [place] # Seg Neutrophils % Seg Neuts % (Manual) Lymphocytes % (Manual) Seg Neutrophils # Seg Neutrophils # Man Lymphocytes # (Manual) APTT POC ABG pH ABG pH POC ABG pCO2 POC ABG pO2 ABG pO2 ABG HCO3 ABG Base Excess ABG Hemoglobin VBG pH Oxyhemoglobin Sodium Potassium Chloride 95.0 L Carbon Dioxide BUN 42 H Creatinine 0.7 L Glucose 172 H POC Glucose 190 H 168 H Lactic Acid Calcium AST 56 H ALT Alkaline Phosphatase 274 H CK-MB (CK-2) CK-MB (CK-2) Rel Index Total Protein 8.9 H Albumin 2.7 L TSH Urine WBC (Auto) Salicylates 04/26/17 04/27/17 04/27/17 23:36 05:10 05:10 WBC RBC 3.49 L Hgb 8.7 L Hct 27.0 L MCV 77 L MCH 25 L RDW 17.4 H Plt Count 558 H Lymph % (Auto) [place] % (Auto) 9.6 H Eos % (Auto) [place] # Seg Neutrophils % Seg Neuts % (Manual) Lymphocytes % (Manual) Seg Neutrophils # Seg Neutrophils # Man Lymphocytes # (Manual) APTT POC ABG pH ABG pH POC ABG pCO2 POC ABG pO2 ABG pO2 ABG HCO3 ABG Base Excess ABG Hemoglobin VBG pH Oxyhemoglobin Sodium 133 L Potassium Chloride 93.5 L Carbon Dioxide BUN 40 H Creatinine 0.7 L Glucose 179 H POC Glucose 204 H Lactic Acid Calcium AST 73 H ALT 58 H Alkaline Phosphatase 294 H CK-MB (CK-2) CK-MB (CK-2) Rel Index Total Protein 8.7 H Albumin 2.4 L TSH Urine WBC (Auto) Salicylates 04/27/17 04/27/17 04/27/17 05:45 14:08 23:46 WBC RBC Hgb Hct MCV MCH RDW Plt Count Lymph % (Auto) [place] % (Auto) Eos % (Auto) [place] # Seg Neutrophils % Seg Neuts % (Manual) Lymphocytes % (Manual) Seg Neutrophils # Seg Neutrophils # Man Lymphocytes # (Manual) APTT POC ABG pH ABG pH POC ABG pCO2 POC ABG pO2 ABG pO2 ABG HCO3 ABG Base Excess ABG Hemoglobin VBG pH Oxyhemoglobin Sodium Potassium Chloride Carbon Dioxide BUN Creatinine Glucose POC Glucose 200 H 206 H 207 H Lactic Acid Calcium AST ALT Alkaline Phosphatase CK-MB (CK-2) CK-MB (CK-2) Rel Index Total Protein Albumin TSH Urine WBC (Auto) Salicylates 04/28/17 04/28/17 04/28/17 04:48 04:53 05:10 WBC RBC 3.48 L Hgb 8.8 L Hct 26.7 L MCV 77 L MCH 25 L RDW 17.0 H Plt Count 515 H Lymph % (Auto) [place] % (Auto) 8.4 H Eos % (Auto) [place] # Seg Neutrophils % 70.6 H Seg Neuts % (Manual) Lymphocytes % (Manual) Seg Neutrophils # Seg Neutrophils # Man Lymphocytes # (Manual) APTT POC ABG pH ABG pH POC ABG pCO2 POC ABG pO2 ABG pO2 ABG HCO3 ABG Base Excess ABG Hemoglobin VBG pH Oxyhemoglobin Sodium Potassium Chloride Carbon Dioxide BUN Creatinine Glucose POC Glucose 43 L 41 L Lactic Acid Calcium AST ALT Alkaline Phosphatase CK-MB (CK-2) CK-MB (CK-2) Rel Index Total Protein Albumin TSH Urine WBC (Auto) Salicylates 04/28/17 04/28/17 04/28/17 05:10 14:06 22:07 WBC RBC Hgb Hct MCV MCH RDW Plt Count Lymph % (Auto) [place] % (Auto) Eos % (Auto) [place] # Seg Neutrophils % Seg Neuts % (Manual) Lymphocytes % (Manual) Seg Neutrophils # Seg Neutrophils # Man Lymphocytes # (Manual) APTT POC ABG pH ABG pH POC ABG pCO2 POC ABG pO2 ABG pO2 ABG HCO3 ABG Base Excess ABG Hemoglobin VBG pH Oxyhemoglobin Sodium 136 L Potassium Chloride 95.2 L Carbon Dioxide BUN 42 H Creatinine Glucose 63 L POC Glucose 303 H 227 H Lactic Acid Calcium AST 45 H ALT Alkaline Phosphatase 271 H CK-MB (CK-2) CK-MB (CK-2) Rel Index Total Protein 8.9 H Albumin 2.5 L TSH Urine WBC (Auto) Salicylates 04/29/17 04/29/17 04/29/17 06:40 14:11 21:35 WBC RBC Hgb Hct MCV MCH RDW Plt Count Lymph % (Auto) [place] % (Auto) Eos % (Auto) [place] # Seg Neutrophils % Seg Neuts % (Manual) Lymphocytes % (Manual) Seg Neutrophils # Seg Neutrophils # Man Lymphocytes # (Manual) APTT POC ABG pH ABG pH POC ABG pCO2 POC ABG pO2 ABG pO2 ABG HCO3 ABG Base Excess ABG Hemoglobin VBG pH Oxyhemoglobin Sodium Potassium Chloride Carbon Dioxide BUN Creatinine Glucose POC Glucose 254 H 244 H 184 H Lactic Acid Calcium AST ALT Alkaline Phosphatase CK-MB (CK-2) CK-MB (CK-2) Rel Index Total Protein Albumin TSH Urine WBC (Auto) Salicylates 04/30/17 04/30/17 04/30/17 05:17 14:03 22:08 WBC RBC Hgb Hct MCV MCH RDW Plt Count Lymph % (Auto) [place] % (Auto) Eos % (Auto) [place] # Seg Neutrophils % Seg Neuts % (Manual) Lymphocytes % (Manual) Seg Neutrophils # Seg Neutrophils # Man Lymphocytes # (Manual) APTT POC ABG pH ABG pH POC ABG pCO2 POC ABG pO2 ABG pO2 ABG HCO3 ABG Base Excess ABG Hemoglobin VBG pH Oxyhemoglobin Sodium Potassium Chloride Carbon Dioxide BUN Creatinine Glucose POC Glucose 173 H 182 H 247 H Lactic Acid Calcium AST ALT Alkaline Phosphatase CK-MB (CK-2) CK-MB (CK-2) Rel Index Total Protein Albumin TSH Urine WBC (Auto) Salicylates 05/01/17 05/01/17 05/01/17 05:04 15:37 18:50 WBC RBC Hgb Hct MCV MCH RDW Plt Count Lymph % (Auto) [place] % (Auto) Eos % (Auto) [place] # Seg Neutrophils % Seg Neuts % (Manual) Lymphocytes % (Manual) Seg Neutrophils # Seg Neutrophils # Man Lymphocytes # (Manual) APTT POC ABG pH ABG pH POC ABG pCO2 POC ABG pO2 ABG pO2 ABG HCO3 ABG Base Excess ABG Hemoglobin VBG pH Oxyhemoglobin Sodium Potassium Chloride Carbon Dioxide BUN Creatinine Glucose POC Glucose 335 H 68 L 144 H Lactic Acid Calcium AST ALT Alkaline Phosphatase CK-MB (CK-2) CK-MB (CK-2) Rel Index Total Protein Albumin TSH Urine WBC (Auto) Salicylates 05/01/17 05/02/17 05/02/17 22:13 04:59 14:06 WBC RBC Hgb Hct MCV MCH RDW Plt Count Lymph % (Auto) [place] % (Auto) Eos % (Auto) [place] # Seg Neutrophils % Seg Neuts % (Manual) Lymphocytes % (Manual) Seg Neutrophils # Seg Neutrophils # Man Lymphocytes # (Manual) APTT POC ABG pH ABG pH POC ABG pCO2 POC ABG pO2 ABG pO2 ABG HCO3 ABG Base Excess ABG Hemoglobin VBG pH Oxyhemoglobin Sodium Potassium Chloride Carbon Dioxide BUN Creatinine Glucose POC Glucose 192 H 225 H 165 H Lactic Acid Calcium AST ALT Alkaline Phosphatase CK-MB (CK-2) CK-MB (CK-2) Rel Index Total Protein Albumin TSH Urine WBC (Auto) Salicylates 05/02/17 05/03/17 05/03/17 21:20 05:16 16:56 WBC RBC Hgb Hct MCV MCH RDW Plt Count Lymph % (Auto) [place] % (Auto) Eos % (Auto) [place] # Seg Neutrophils % Seg Neuts % (Manual) Lymphocytes % (Manual) Seg Neutrophils # Seg Neutrophils # Man Lymphocytes # (Manual) APTT POC ABG pH ABG pH POC ABG pCO2 POC ABG pO2 ABG pO2 ABG HCO3 ABG Base Excess ABG Hemoglobin VBG pH Oxyhemoglobin Sodium Potassium Chloride Carbon Dioxide BUN Creatinine Glucose POC Glucose 181 H 323 H 125 H Lactic Acid Calcium AST ALT Alkaline Phosphatase CK-MB (CK-2) CK-MB (CK-2) Rel Index Total Protein Albumin TSH Urine WBC (Auto) Salicylates 05/03/17 05/04/17 05/04/17 21:46 05:01 14:24 WBC RBC Hgb Hct MCV MCH RDW Plt Count Lymph % (Auto) [place] % (Auto) Eos % (Auto) [place] # Seg Neutrophils % Seg Neuts % (Manual) Lymphocytes % (Manual) Seg Neutrophils # Seg Neutrophils # Man Lymphocytes # (Manual) APTT POC ABG pH ABG pH POC ABG pCO2 POC ABG pO2 ABG pO2 ABG HCO3 ABG Base Excess ABG Hemoglobin VBG pH Oxyhemoglobin Sodium Potassium Chloride Carbon Dioxide BUN Creatinine Glucose POC Glucose 210 H 360 H 219 H Lactic Acid Calcium AST ALT Alkaline Phosphatase CK-MB (CK-2) CK-MB (CK-2) Rel Index Total Protein Albumin TSH Urine WBC (Auto) Salicylates 05/04/17 05/05/17 05/05/17 21:39 01:58 05:13 WBC RBC Hgb Hct MCV MCH RDW Plt Count Lymph % (Auto) [place] % (Auto) Eos % (Auto) [place] # Seg Neutrophils % Seg Neuts % (Manual) Lymphocytes % (Manual) Seg Neutrophils # Seg Neutrophils # Man Lymphocytes # (Manual) APTT POC ABG pH ABG pH POC ABG pCO2 POC ABG pO2 ABG pO2 ABG HCO3 ABG Base Excess ABG Hemoglobin VBG pH Oxyhemoglobin Sodium Potassium Chloride Carbon Dioxide BUN Creatinine Glucose POC Glucose 126 H 175 H 267 H Lactic Acid Calcium AST ALT Alkaline Phosphatase CK-MB (CK-2) CK-MB (CK-2) Rel Index Total Protein Albumin TSH Urine WBC (Auto) Salicylates 05/05/17 05/05/17 05/05/17 12:19 14:11 21:18 WBC RBC Hgb Hct MCV MCH RDW Plt Count Lymph % (Auto) [place] % (Auto) Eos % (Auto) [place] # Seg Neutrophils % Seg Neuts % (Manual) Lymphocytes % (Manual) Seg Neutrophils # Seg Neutrophils # Man Lymphocytes # (Manual) APTT POC ABG pH ABG pH POC ABG pCO2 POC ABG pO2 ABG pO2 ABG HCO3 ABG Base Excess ABG Hemoglobin VBG pH Oxyhemoglobin Sodium Potassium Chloride Carbon Dioxide BUN Creatinine Glucose POC Glucose 221 H 205 H 156 H Lactic Acid Calcium AST ALT Alkaline Phosphatase CK-MB (CK-2) CK-MB (CK-2) Rel Index Total Protein Albumin TSH Urine WBC (Auto) Salicylates 05/06/17 05/06/17 05/06/17 06:02 15:26 21:43 WBC RBC Hgb Hct MCV MCH RDW Plt Count Lymph % (Auto) [place] % (Auto) Eos % (Auto) [place] # Seg Neutrophils % Seg Neuts % (Manual) Lymphocytes % (Manual) Seg Neutrophils # Seg Neutrophils # Man Lymphocytes # (Manual) APTT POC ABG pH ABG pH POC ABG pCO2 POC ABG pO2 ABG pO2 ABG HCO3 ABG Base Excess ABG Hemoglobin VBG pH Oxyhemoglobin Sodium Potassium Chloride Carbon Dioxide BUN Creatinine Glucose POC Glucose 263 H 143 H 145 H Lactic Acid Calcium AST ALT Alkaline Phosphatase CK-MB (CK-2) CK-MB (CK-2) Rel Index Total Protein Albumin TSH Urine WBC (Auto) Salicylates 05/07/17 05/07/17 05/07/17 05:52 21:46 21:49 WBC RBC Hgb Hct MCV MCH RDW Plt Count Lymph % (Auto) [place] % (Auto) Eos % (Auto) [place] # Seg Neutrophils % Seg Neuts % (Manual) Lymphocytes % (Manual) Seg Neutrophils # Seg Neutrophils # Man Lymphocytes # (Manual) APTT POC ABG pH ABG pH POC ABG pCO2 POC ABG pO2 ABG pO2 ABG HCO3 ABG Base Excess ABG Hemoglobin VBG pH Oxyhemoglobin Sodium Potassium Chloride Carbon Dioxide BUN Creatinine Glucose POC Glucose 242 H < 40 L < 40 L Lactic Acid Calcium AST ALT Alkaline Phosphatase CK-MB (CK-2) CK-MB (CK-2) Rel Index Total Protein Albumin TSH Urine WBC (Auto) Salicylates 05/07/17 05/08/17 05/09/17 22:41 06:14 00:02 WBC RBC Hgb Hct MCV MCH RDW Plt Count Lymph % (Auto) [place] % (Auto) Eos % (Auto) [place] # Seg Neutrophils % Seg Neuts % (Manual) Lymphocytes % (Manual) Seg Neutrophils # Seg Neutrophils # Man Lymphocytes # (Manual) APTT POC ABG pH ABG pH POC ABG pCO2 POC ABG pO2 ABG pO2 ABG HCO3 ABG Base Excess ABG Hemoglobin VBG pH Oxyhemoglobin Sodium Potassium Chloride Carbon Dioxide BUN Creatinine Glucose POC Glucose 183 H 329 H 130 H Lactic Acid Calcium AST ALT Alkaline Phosphatase CK-MB (CK-2) CK-MB (CK-2) Rel Index Total Protein Albumin TSH Urine WBC (Auto) Salicylates 05/09/17 05/09/17 05/09/17 06:08 14:06 21:44 WBC RBC Hgb Hct MCV MCH RDW Plt Count Lymph % (Auto) [place] % (Auto) Eos % (Auto) [place] # Seg Neutrophils % Seg Neuts % (Manual) Lymphocytes % (Manual) Seg Neutrophils # Seg Neutrophils # Man Lymphocytes # (Manual) APTT POC ABG pH ABG pH POC ABG pCO2 POC ABG pO2 ABG pO2 ABG HCO3 ABG Base Excess ABG Hemoglobin VBG pH Oxyhemoglobin Sodium Potassium Chloride Carbon Dioxide BUN Creatinine Glucose POC Glucose 241 H 251 H 198 H Lactic Acid Calcium AST ALT Alkaline Phosphatase CK-MB (CK-2) CK-MB (CK-2) Rel Index Total Protein Albumin TSH Urine WBC (Auto) Salicylates 05/10/17 05/10/17 05/10/17 05:18 14:44 21:53 WBC RBC Hgb Hct MCV MCH RDW Plt Count Lymph % (Auto) [place] % (Auto) Eos % (Auto) [place] # Seg Neutrophils % Seg Neuts % (Manual) Lymphocytes % (Manual) Seg Neutrophils # Seg Neutrophils # Man Lymphocytes # (Manual) APTT POC ABG pH ABG pH POC ABG pCO2 POC ABG pO2 ABG pO2 ABG HCO3 ABG Base Excess ABG Hemoglobin VBG pH Oxyhemoglobin Sodium Potassium Chloride Carbon Dioxide BUN Creatinine Glucose POC Glucose 166 H 224 H 171 H Lactic Acid Calcium AST ALT Alkaline Phosphatase CK-MB (CK-2) CK-MB (CK-2) Rel Index Total Protein Albumin TSH Urine WBC (Auto) Salicylates 05/11/17 05/11/17 05/11/17 05:45 13:44 21:42 WBC RBC Hgb Hct MCV MCH RDW Plt Count Lymph % (Auto) [place] % (Auto) Eos % (Auto) [place] # Seg Neutrophils % Seg Neuts % (Manual) Lymphocytes % (Manual) Seg Neutrophils # Seg Neutrophils # Man Lymphocytes # (Manual) APTT POC ABG pH ABG pH POC ABG pCO2 POC ABG pO2 ABG pO2 ABG HCO3 ABG Base Excess ABG Hemoglobin VBG pH Oxyhemoglobin Sodium Potassium Chloride Carbon Dioxide BUN Creatinine Glucose POC Glucose 199 H 150 H 163 H Lactic Acid Calcium AST ALT Alkaline Phosphatase CK-MB (CK-2) CK-MB (CK-2) Rel Index Total Protein Albumin TSH Urine WBC (Auto) Salicylates 05/12/17 05/12/17 05/12/17 06:03 13:59 21:22 WBC RBC Hgb Hct MCV MCH RDW Plt Count Lymph % (Auto) [place] % (Auto) Eos % (Auto) [place] # Seg Neutrophils % Seg Neuts % (Manual) Lymphocytes % (Manual) Seg Neutrophils # Seg Neutrophils # Man Lymphocytes # (Manual) APTT POC ABG pH ABG pH POC ABG pCO2 POC ABG pO2 ABG pO2 ABG HCO3 ABG Base Excess ABG Hemoglobin VBG pH Oxyhemoglobin Sodium Potassium Chloride Carbon Dioxide BUN Creatinine Glucose POC Glucose 147 H 243 H 116 H Lactic Acid Calcium AST ALT Alkaline Phosphatase CK-MB (CK-2) CK-MB (CK-2) Rel Index Total Protein Albumin TSH Urine WBC (Auto) Salicylates 05/13/17 05/13/17 05/13/17 05:28 13:49 21:29 WBC RBC Hgb Hct MCV MCH RDW Plt Count Lymph % (Auto) [place] % (Auto) Eos % (Auto) [place] # Seg Neutrophils % Seg Neuts % (Manual) Lymphocytes % (Manual) Seg Neutrophils # Seg Neutrophils # Man Lymphocytes # (Manual) APTT POC ABG pH ABG pH POC ABG pCO2 POC ABG pO2 ABG pO2 ABG HCO3 ABG Base Excess ABG Hemoglobin VBG pH Oxyhemoglobin Sodium Potassium Chloride Carbon Dioxide BUN Creatinine Glucose POC Glucose 213 H 224 H 379 H Lactic Acid Calcium AST ALT Alkaline Phosphatase CK-MB (CK-2) CK-MB (CK-2) Rel Index Total Protein Albumin TSH Urine WBC (Auto) Salicylates 05/14/17 05/14/17 05/14/17 05:17 13:35 21:23 WBC RBC Hgb Hct MCV MCH RDW Plt Count Lymph % (Auto) [place] % (Auto) Eos % (Auto) [place] # Seg Neutrophils % Seg Neuts % (Manual) Lymphocytes % (Manual) Seg Neutrophils # Seg Neutrophils # Man Lymphocytes # (Manual) APTT POC ABG pH ABG pH POC ABG pCO2 POC ABG pO2 ABG pO2 ABG HCO3 ABG Base Excess ABG Hemoglobin VBG pH Oxyhemoglobin Sodium Potassium Chloride Carbon Dioxide BUN Creatinine Glucose POC Glucose 234 H 242 H 218 H Lactic Acid Calcium AST ALT Alkaline Phosphatase CK-MB (CK-2) CK-MB (CK-2) Rel Index Total Protein Albumin TSH Urine WBC (Auto) Salicylates 05/15/17 05/15/17 05/16/17 04:58 13:53 01:34 WBC RBC Hgb Hct MCV MCH RDW Plt Count Lymph % (Auto) [place] % (Auto) Eos % (Auto) [place] # Seg Neutrophils % Seg Neuts % (Manual) Lymphocytes % (Manual) Seg Neutrophils # Seg Neutrophils # Man Lymphocytes # (Manual) APTT POC ABG pH ABG pH POC ABG pCO2 POC ABG pO2 ABG pO2 ABG HCO3 ABG Base Excess ABG Hemoglobin VBG pH Oxyhemoglobin Sodium Potassium Chloride Carbon Dioxide BUN Creatinine Glucose POC Glucose 310 H 193 H 263 H Lactic Acid Calcium AST ALT Alkaline Phosphatase CK-MB (CK-2) CK-MB (CK-2) Rel Index Total Protein Albumin TSH Urine WBC (Auto) Salicylates 05/16/17 05/16/17 05/16/17 06:03 14:36 21:59 WBC RBC Hgb Hct MCV MCH RDW Plt Count Lymph % (Auto) [place] % (Auto) Eos % (Auto) [place] # Seg Neutrophils % Seg Neuts % (Manual) Lymphocytes % (Manual) Seg Neutrophils # Seg Neutrophils # Man Lymphocytes # (Manual) APTT POC ABG pH ABG pH POC ABG pCO2 POC ABG pO2 ABG pO2 ABG HCO3 ABG Base Excess ABG Hemoglobin VBG pH Oxyhemoglobin Sodium Potassium Chloride Carbon Dioxide BUN Creatinine Glucose POC Glucose 330 H 272 H 198 H Lactic Acid Calcium AST ALT Alkaline Phosphatase CK-MB (CK-2) CK-MB (CK-2) Rel Index Total Protein Albumin TSH Urine WBC (Auto) Salicylates 05/17/17 05/17/17 05/18/17 05:48 13:59 05:27 WBC RBC Hgb Hct MCV MCH RDW Plt Count Lymph % (Auto) [place] % (Auto) Eos % (Auto) [place] # Seg Neutrophils % Seg Neuts % (Manual) Lymphocytes % (Manual) Seg Neutrophils # Seg Neutrophils # Man Lymphocytes # (Manual) APTT POC ABG pH ABG pH POC ABG pCO2 POC ABG pO2 ABG pO2 ABG HCO3 ABG Base Excess ABG Hemoglobin VBG pH Oxyhemoglobin Sodium Potassium Chloride Carbon Dioxide BUN Creatinine Glucose POC Glucose 204 H 229 H 152 H Lactic Acid Calcium AST ALT Alkaline Phosphatase CK-MB (CK-2) CK-MB (CK-2) Rel Index Total Protein Albumin TSH Urine WBC (Auto) Salicylates 05/18/17 05/18/17 05/19/17 14:16 21:27 04:59 WBC RBC Hgb Hct MCV MCH RDW Plt Count Lymph % (Auto) [place] % (Auto) Eos % (Auto) [place] # Seg Neutrophils % Seg Neuts % (Manual) Lymphocytes % (Manual) Seg Neutrophils # Seg Neutrophils # Man Lymphocytes # (Manual) APTT POC ABG pH ABG pH POC ABG pCO2 POC ABG pO2 ABG pO2 ABG HCO3 ABG Base Excess ABG Hemoglobin VBG pH Oxyhemoglobin Sodium Potassium Chloride Carbon Dioxide BUN Creatinine Glucose POC Glucose 217 H 202 H 131 H Lactic Acid Calcium AST ALT Alkaline Phosphatase CK-MB (CK-2) CK-MB (CK-2) Rel Index Total Protein Albumin TSH Urine WBC (Auto) Salicylates 05/19/17 05/20/17 05/20/17 14:57 00:11 05:45 WBC RBC Hgb Hct MCV MCH RDW Plt Count Lymph % (Auto) [place] % (Auto) Eos % (Auto) [place] # Seg Neutrophils % Seg Neuts % (Manual) Lymphocytes % (Manual) Seg Neutrophils # Seg Neutrophils # Man Lymphocytes # (Manual) APTT POC ABG pH ABG pH POC ABG pCO2 POC ABG pO2 ABG pO2 ABG HCO3 ABG Base Excess ABG Hemoglobin VBG pH Oxyhemoglobin Sodium Potassium Chloride Carbon Dioxide BUN Creatinine Glucose POC Glucose 216 H 197 H 195 H Lactic Acid Calcium AST ALT Alkaline Phosphatase CK-MB (CK-2) CK-MB (CK-2) Rel Index Total Protein Albumin TSH Urine WBC (Auto) Salicylates 05/20/17 05/20/17 05/21/17 13:29 22:11 05:43 WBC RBC Hgb Hct MCV MCH RDW Plt Count Lymph % (Auto) [place] % (Auto) Eos % (Auto) [place] # Seg Neutrophils % Seg Neuts % (Manual) Lymphocytes % (Manual) Seg Neutrophils # Seg Neutrophils # Man Lymphocytes # (Manual) APTT POC ABG pH ABG pH POC ABG pCO2 POC ABG pO2 ABG pO2 ABG HCO3 ABG Base Excess ABG Hemoglobin VBG pH Oxyhemoglobin Sodium Potassium Chloride Carbon Dioxide BUN Creatinine Glucose POC Glucose 138 H 242 H 228 H Lactic Acid Calcium AST ALT Alkaline Phosphatase CK-MB (CK-2) CK-MB (CK-2) Rel Index Total Protein Albumin TSH Urine WBC (Auto) Salicylates 05/21/17 05/21/17 05/22/17 14:06 21:49 05:31 WBC RBC Hgb Hct MCV MCH RDW Plt Count Lymph % (Auto) [place] % (Auto) Eos % (Auto) [place] # Seg Neutrophils % Seg Neuts % (Manual) Lymphocytes % (Manual) Seg Neutrophils # Seg Neutrophils # Man Lymphocytes # (Manual) APTT POC ABG pH ABG pH POC ABG pCO2 POC ABG pO2 ABG pO2 ABG HCO3 ABG Base Excess ABG Hemoglobin VBG pH Oxyhemoglobin Sodium Potassium Chloride Carbon Dioxide BUN Creatinine Glucose POC Glucose 191 H 166 H 184 H Lactic Acid Calcium AST ALT Alkaline Phosphatase CK-MB (CK-2) CK-MB (CK-2) Rel Index Total Protein Albumin TSH Urine WBC (Auto) Salicylates 05/22/17 05/22/17 05/23/17 14:03 21:45 05:41 WBC RBC Hgb Hct MCV MCH RDW Plt Count Lymph % (Auto) [place] % (Auto) Eos % (Auto) [place] # Seg Neutrophils % Seg Neuts % (Manual) Lymphocytes % (Manual) Seg Neutrophils # Seg Neutrophils # Man Lymphocytes # (Manual) APTT POC ABG pH ABG pH POC ABG pCO2 POC ABG pO2 ABG pO2 ABG HCO3 ABG Base Excess ABG Hemoglobin VBG pH Oxyhemoglobin Sodium Potassium Chloride Carbon Dioxide BUN Creatinine Glucose POC Glucose 206 H 178 H 206 H Lactic Acid Calcium AST ALT Alkaline Phosphatase CK-MB (CK-2) CK-MB (CK-2) Rel Index Total Protein Albumin TSH Urine WBC (Auto) Salicylates 05/23/17 05/23/17 05/24/17 14:09 22:48 05:21 WBC RBC Hgb Hct MCV MCH RDW Plt Count Lymph % (Auto) [place] % (Auto) Eos % (Auto) [place] # Seg Neutrophils % Seg Neuts % (Manual) Lymphocytes % (Manual) Seg Neutrophils # Seg Neutrophils # Man Lymphocytes # (Manual) APTT POC ABG pH ABG pH POC ABG pCO2 POC ABG pO2 ABG pO2 ABG HCO3 ABG Base Excess ABG Hemoglobin VBG pH Oxyhemoglobin Sodium Potassium Chloride Carbon Dioxide BUN Creatinine Glucose POC Glucose 148 H 181 H 162 H Lactic Acid Calcium AST ALT Alkaline Phosphatase CK-MB (CK-2) CK-MB (CK-2) Rel Index Total Protein Albumin TSH Urine WBC (Auto) Salicylates 05/24/17 05/24/17 05/25/17 13:32 21:55 06:49 WBC RBC Hgb Hct MCV MCH RDW Plt Count Lymph % (Auto) [place] % (Auto) Eos % (Auto) [place] # Seg Neutrophils % Seg Neuts % (Manual) Lymphocytes % (Manual) Seg Neutrophils # Seg Neutrophils # Man Lymphocytes # (Manual) APTT POC ABG pH ABG pH POC ABG pCO2 POC ABG pO2 ABG pO2 ABG HCO3 ABG Base Excess ABG Hemoglobin VBG pH Oxyhemoglobin Sodium Potassium Chloride Carbon Dioxide BUN Creatinine Glucose POC Glucose 216 H 144 H 151 H Lactic Acid Calcium AST ALT Alkaline Phosphatase CK-MB (CK-2) CK-MB (CK-2) Rel Index Total Protein Albumin TSH Urine WBC (Auto) Salicylates 05/25/17 05/25/17 05/26/17 15:32 21:58 05:46 WBC RBC Hgb Hct MCV MCH RDW Plt Count Lymph % (Auto) [place] % (Auto) Eos % (Auto) [place] # Seg Neutrophils % Seg Neuts % (Manual) Lymphocytes % (Manual) Seg Neutrophils # Seg Neutrophils # Man Lymphocytes # (Manual) APTT POC ABG pH ABG pH POC ABG pCO2 POC ABG pO2 ABG pO2 ABG HCO3 ABG Base Excess ABG Hemoglobin VBG pH Oxyhemoglobin Sodium Potassium Chloride Carbon Dioxide BUN Creatinine Glucose POC Glucose 136 H 160 H 225 H Lactic Acid Calcium AST ALT Alkaline Phosphatase CK-MB (CK-2) CK-MB (CK-2) Rel Index Total Protein Albumin TSH Urine WBC (Auto) Salicylates 05/26/17 05/27/17 05/27/17 22:32 05:52 14:47 WBC RBC Hgb Hct MCV MCH RDW Plt Count Lymph % (Auto) [place] % (Auto) Eos % (Auto) [place] # Seg Neutrophils % Seg Neuts % (Manual) Lymphocytes % (Manual) Seg Neutrophils # Seg Neutrophils # Man Lymphocytes # (Manual) APTT POC ABG pH ABG pH POC ABG pCO2 POC ABG pO2 ABG pO2 ABG HCO3 ABG Base Excess ABG Hemoglobin VBG pH Oxyhemoglobin Sodium Potassium Chloride Carbon Dioxide BUN Creatinine Glucose POC Glucose 161 H 197 H 117 H Lactic Acid Calcium AST ALT Alkaline Phosphatase CK-MB (CK-2) CK-MB (CK-2) Rel Index Total Protein Albumin TSH Urine WBC (Auto) Salicylates 05/27/17 05/28/17 05/28/17 21:49 05:54 06:49 WBC RBC Hgb Hct MCV MCH RDW Plt Count Lymph % (Auto) [place] % (Auto) Eos % (Auto) [place] # Seg Neutrophils % Seg Neuts % (Manual) Lymphocytes % (Manual) Seg Neutrophils # Seg Neutrophils # Man Lymphocytes # (Manual) APTT POC ABG pH ABG pH POC ABG pCO2 POC ABG pO2 ABG pO2 ABG HCO3 ABG Base Excess ABG Hemoglobin VBG pH Oxyhemoglobin Sodium Potassium Chloride Carbon Dioxide BUN Creatinine Glucose POC Glucose 148 H 60 L 59 L Lactic Acid Calcium AST ALT Alkaline Phosphatase CK-MB (CK-2) CK-MB (CK-2) Rel Index Total Protein Albumin TSH Urine WBC (Auto) Salicylates 05/28/17 05/28/17 05/28/17 14:32 16:04 21:43 WBC RBC Hgb Hct MCV MCH RDW Plt Count Lymph % (Auto) [place] % (Auto) Eos % (Auto) [place] # Seg Neutrophils % Seg Neuts % (Manual) Lymphocytes % (Manual) Seg Neutrophils # Seg Neutrophils # Man Lymphocytes # (Manual) APTT POC ABG pH ABG pH POC ABG pCO2 POC ABG pO2 ABG pO2 ABG HCO3 ABG Base Excess ABG Hemoglobin VBG pH Oxyhemoglobin Sodium Potassium Chloride Carbon Dioxide BUN Creatinine Glucose POC Glucose 55 L 109 H 235 H Lactic Acid Calcium AST ALT Alkaline Phosphatase CK-MB (CK-2) CK-MB (CK-2) Rel Index Total Protein Albumin TSH Urine WBC (Auto) Salicylates 05/29/17 05/29/17 05/29/17 06:14 13:23 22:46 WBC RBC Hgb Hct MCV MCH RDW Plt Count Lymph % (Auto) [place] % (Auto) Eos % (Auto) [place] # Seg Neutrophils % Seg Neuts % (Manual) Lymphocytes % (Manual) Seg Neutrophils # Seg Neutrophils # Man Lymphocytes # (Manual) APTT POC ABG pH ABG pH POC ABG pCO2 POC ABG pO2 ABG pO2 ABG HCO3 ABG Base Excess ABG Hemoglobin VBG pH Oxyhemoglobin Sodium Potassium Chloride Carbon Dioxide BUN Creatinine Glucose POC Glucose 260 H 173 H 151 H Lactic Acid Calcium AST ALT Alkaline Phosphatase CK-MB (CK-2) CK-MB (CK-2) Rel Index Total Protein Albumin TSH Urine WBC (Auto) Salicylates 05/30/17 05/30/17 05/31/17 05:20 13:56 14:56 WBC RBC Hgb Hct MCV MCH RDW Plt Count Lymph % (Auto) [place] % (Auto) Eos % (Auto) [place] # Seg Neutrophils % Seg Neuts % (Manual) Lymphocytes % (Manual) Seg Neutrophils # Seg Neutrophils # Man Lymphocytes # (Manual) APTT POC ABG pH ABG pH POC ABG pCO2 POC ABG pO2 ABG pO2 ABG HCO3 ABG Base Excess ABG Hemoglobin VBG pH Oxyhemoglobin Sodium Potassium Chloride Carbon Dioxide BUN Creatinine Glucose POC Glucose 250 H 187 H 139 H Lactic Acid Calcium AST ALT Alkaline Phosphatase CK-MB (CK-2) CK-MB (CK-2) Rel Index Total Protein Albumin TSH Urine WBC (Auto) Salicylates 06/01/17 06/01/17 06/01/17 05:37 13:10 21:34 WBC RBC Hgb Hct MCV MCH RDW Plt Count Lymph % (Auto) [place] % (Auto) Eos % (Auto) [place] # Seg Neutrophils % Seg Neuts % (Manual) Lymphocytes % (Manual) Seg Neutrophils # Seg Neutrophils # Man Lymphocytes # (Manual) APTT POC ABG pH ABG pH POC ABG pCO2 POC ABG pO2 ABG pO2 ABG HCO3 ABG Base Excess ABG Hemoglobin VBG pH Oxyhemoglobin Sodium Potassium Chloride Carbon Dioxide BUN Creatinine Glucose POC Glucose 207 H 136 H 109 H Lactic Acid Calcium AST ALT Alkaline Phosphatase CK-MB (CK-2) CK-MB (CK-2) Rel Index Total Protein Albumin TSH Urine WBC (Auto) Salicylates 06/02/17 06/02/17 06/03/17 05:15 15:44 00:49 WBC RBC Hgb Hct MCV MCH RDW Plt Count Lymph % (Auto) [place] % (Auto) Eos % (Auto) [place] # Seg Neutrophils % Seg Neuts % (Manual) Lymphocytes % (Manual) Seg Neutrophils # Seg Neutrophils # Man Lymphocytes # (Manual) APTT POC ABG pH ABG pH POC ABG pCO2 POC ABG pO2 ABG pO2 ABG HCO3 ABG Base Excess ABG Hemoglobin VBG pH Oxyhemoglobin Sodium Potassium Chloride Carbon Dioxide BUN Creatinine Glucose POC Glucose 121 H 229 H 134 H Lactic Acid Calcium AST ALT Alkaline Phosphatase CK-MB (CK-2) CK-MB (CK-2) Rel Index Total Protein Albumin TSH Urine WBC (Auto) Salicylates 06/03/17 06/03/17 06/04/17 13:46 22:42 05:37 WBC RBC Hgb Hct MCV MCH RDW Plt Count Lymph % (Auto) [place] % (Auto) Eos % (Auto) [place] # Seg Neutrophils % Seg Neuts % (Manual) Lymphocytes % (Manual) Seg Neutrophils # Seg Neutrophils # Man Lymphocytes # (Manual) APTT POC ABG pH ABG pH POC ABG pCO2 POC ABG pO2 ABG pO2 ABG HCO3 ABG Base Excess ABG Hemoglobin VBG pH Oxyhemoglobin Sodium Potassium Chloride Carbon Dioxide BUN Creatinine Glucose POC Glucose 230 H 158 H 144 H Lactic Acid Calcium AST ALT Alkaline Phosphatase CK-MB (CK-2) CK-MB (CK-2) Rel Index Total Protein Albumin TSH Urine WBC (Auto) Salicylates 06/04/17 06/04/17 06/04/17 14:04 22:17 23:18 WBC RBC Hgb Hct MCV MCH RDW Plt Count Lymph % (Auto) [place] % (Auto) Eos % (Auto) [place] # Seg Neutrophils % Seg Neuts % (Manual) Lymphocytes % (Manual) Seg Neutrophils # Seg Neutrophils # Man Lymphocytes # (Manual) APTT POC ABG pH ABG pH POC ABG pCO2 POC ABG pO2 ABG pO2 ABG HCO3 ABG Base Excess ABG Hemoglobin VBG pH Oxyhemoglobin Sodium Potassium Chloride Carbon Dioxide BUN Creatinine Glucose POC Glucose 168 H 53 L 121 H Lactic Acid Calcium AST ALT Alkaline Phosphatase CK-MB (CK-2) CK-MB (CK-2) Rel Index Total Protein Albumin TSH Urine WBC (Auto) Salicylates 06/05/17 06/05/17 06/05/17 05:27 14:19 21:35 WBC RBC Hgb Hct MCV MCH RDW Plt Count Lymph % (Auto) [place] % (Auto) Eos % (Auto) [place] # Seg Neutrophils % Seg Neuts % (Manual) Lymphocytes % (Manual) Seg Neutrophils # Seg Neutrophils # Man Lymphocytes # (Manual) APTT POC ABG pH ABG pH POC ABG pCO2 POC ABG pO2 ABG pO2 ABG HCO3 ABG Base Excess ABG Hemoglobin VBG pH Oxyhemoglobin Sodium Potassium Chloride Carbon Dioxide BUN Creatinine Glucose POC Glucose 157 H 130 H 143 H Lactic Acid Calcium AST ALT Alkaline Phosphatase CK-MB (CK-2) CK-MB (CK-2) Rel Index Total Protein Albumin TSH Urine WBC (Auto) Salicylates 06/06/17 06/06/17 06/06/17 05:44 14:33 21:54 WBC RBC Hgb Hct MCV MCH RDW Plt Count Lymph % (Auto) [place] % (Auto) Eos % (Auto) [place] # Seg Neutrophils % Seg Neuts % (Manual) Lymphocytes % (Manual) Seg Neutrophils # Seg Neutrophils # Man Lymphocytes # (Manual) APTT POC ABG pH ABG pH POC ABG pCO2 POC ABG pO2 ABG pO2 ABG HCO3 ABG Base Excess ABG Hemoglobin VBG pH Oxyhemoglobin Sodium Potassium Chloride Carbon Dioxide BUN Creatinine Glucose POC Glucose 184 H 171 H 135 H Lactic Acid Calcium AST ALT Alkaline Phosphatase CK-MB (CK-2) CK-MB (CK-2) Rel Index Total Protein Albumin TSH Urine WBC (Auto) Salicylates 06/07/17 06/07/17 06/07/17 06:23 14:32 15:37 WBC RBC Hgb Hct MCV MCH RDW Plt Count Lymph % (Auto) [place] % (Auto) Eos % (Auto) [place] # Seg Neutrophils % Seg Neuts % (Manual) Lymphocytes % (Manual) Seg Neutrophils # Seg Neutrophils # Man Lymphocytes # (Manual) APTT POC ABG pH ABG pH POC ABG pCO2 POC ABG pO2 ABG pO2 ABG HCO3 ABG Base Excess ABG Hemoglobin VBG pH Oxyhemoglobin Sodium Potassium Chloride Carbon Dioxide BUN Creatinine Glucose POC Glucose 162 H 174 H 176 H Lactic Acid Calcium AST ALT Alkaline Phosphatase CK-MB (CK-2) CK-MB (CK-2) Rel Index Total Protein Albumin TSH Urine WBC (Auto) Salicylates 06/07/17 23:18 WBC RBC Hgb Hct MCV MCH RDW Plt Count Lymph % (Auto) [place] % (Auto) Eos % (Auto) [place] # Seg Neutrophils % Seg Neuts % (Manual) Lymphocytes % (Manual) Seg Neutrophils # Seg Neutrophils # Man Lymphocytes # (Manual) APTT POC ABG pH ABG pH POC ABG pCO2 POC ABG pO2 ABG pO2 ABG HCO3 ABG Base Excess ABG Hemoglobin VBG pH Oxyhemoglobin Sodium Potassium Chloride Carbon Dioxide BUN Creatinine Glucose POC Glucose 119 H Lactic Acid Calcium AST ALT Alkaline Phosphatase CK-MB (CK-2) CK-MB (CK-2) Rel Index Total Protein Albumin TSH Urine WBC (Auto) Salicylates
[2017-06-08] MEDS: LEVEMIR (NF) SUB-Q SCH (10:54)
[2017-06-08] MEDS: HEPARIN SUB-Q SCH ×2 (10:54→21:50)
[2017-06-08] MEDS: PEPCID PO SCH ×2 (11:50→21:50)
--- NOTE | 2017-06-08 13:15 | Progress Note ---
Assessment and Plan Assessment and plan: 51 YO Male with CKD, HTN, DM presents to ED after found down and unresponsive by his neighbor, who subsequently called EMS. Upon arrival, patient found unresponsive on the floor with a serum glucose of 21, patient has a known history of alcohol abuse and delirium tremens. The patient was administered D5 approximate 500 mls during transport without change in mental status/level of consciousness. Pt seen and evaluated in ED was was found to be unable to protect his airway. Pt intubated and placed on vent support. Pt found to have evidence of hypothyroidism. He was started on Synthroid. He has since been in the ICU. director volunteer services try to locate family, even spoke to the family who he lives with. They themselves were unaware of any family members. After ethics committee meeting on the patient. The decision was made to make him DO NOT RESUSCITATE and to transfer him to hospice. Given his very poor prognosis and poor likelihood of recovery. It was decided that was not his best interest to get trach and PEG. Therefore he'll be transferred to the hospice intubated. Now Awaiting on court ordered /state guardianship. Hypoglycemic brain injury Persistent vegetative state Metabolic encephalopathy Hypoglycemia/hypothermia, resolved Acute respiratory failure mechanical ventilator greater than 96 hours UTI with klebsiella, treated ( Cx + on 01/28), then with ESBL likely colonization hyponatremia, Hypothyroidism IDDM Hypertension low grade Fever, resolved - Cont supportive care and current medication. Monitor vitals, repeat cx on - no growth - increased dose of long acting insulin to 15 unit - Patient is DNR- needs guardianship from the state to give consent for further management, as has no family to give consent. 06/07/17: Resumed care, Guardianship has been obtained but no authority to withdraw care. Continue supportative care. History Interval history: Patient was seen and examined. Follow-up on current diagnosis. Imaging, nursing note, chart, labs and old chart reviewed. Patient remains intubated and unresponsive Hospitalist Physical - Physical exam Narrative exam: GEN: Severely fail contracted BMI 16.5, comatose HEENT: NCAT, NG tube and ET tube in place CVS/HEART: RRR, NORMAL S1S2, NO JVD, pulses present bilaterally CHEST/LUNGS: Symmetrical chest expansion, good air entry bilaterally GI/Abdomen: soft, ND, good bowel sounds, no guarding or rebound Neuro: comatose, doesn't follow commands Psych: Unresponsive - Constitutional Vitals: Temp Pulse Resp BP Pulse Ox 98.6 F 64 12 90/65 99 06/08/17 08:00 06/08/17 08:55 06/08/17 06:00 06/08/17 08:55 06/08/17 08:55 General appearance: Present: no acute distress Results - Labs CBC & Chem 7: 04/28/17 05:10 04/28/17 05:10 Labs: Laboratory Last Values WBC 9.3 K/mm3 (4.5-11.0) 04/28/17 05:10 RBC 3.48 M/mm3 (3.65-5.03) L 04/28/17 05:10 Hgb 8.8 gm/dl (11.8-15.2) L 04/28/17 05:10 Hct 26.7 % (35.5-45.6) L 04/28/17 05:10 MCV 77 fl (84-94) L 04/28/17 05:10 MCH 25 pg (28-32) L 04/28/17 05:10 MCHC 33 % (32-34) 04/28/17 05:10 RDW 17.0 % (13.2-15.2) H 04/28/17 05:10 Plt Count 515 K/mm3 (140-440) H 04/28/17 05:10 Lymph % (Auto) 18.4 % (13.4-35.0) 04/28/17 05:10 [place] % (Auto) 8.4 % (0.0-7.3) H 04/28/17 05:10 Eos % (Auto) 1.8 % (0.0-4.3) 04/28/17 05:10 Baso % (Auto) 0.8 % (0.0-1.8) 04/28/17 05:10 Lymph # 1.7 K/mm3 (1.2-5.4) 04/28/17 05:10 [place] # 0.8 K/mm3 (0.0-0.8) 04/28/17 05:10 Eos # 0.2 K/mm3 (0.0-0.4) 04/28/17 05:10 Baso # 0.1 K/mm3 (0.0-0.1) 04/28/17 05:10 Add Manual Diff Complete 01/10/17 04:30 Total Counted 100 01/10/17 04:30 Seg Neutrophils % 70.6 % (40.0-70.0) H 04/28/17 05:10 Seg Neuts % (Manual) 88.0 % (40.0-70.0) H 01/10/17 04:30 Band Neutrophils % 7.0 % 01/10/17 04:30 Lymphocytes % (Manual) 4.0 % (13.4-35.0) L 01/10/17 04:30 Reactive Lymphs % (Man) 0 % 01/10/17 04:30 Monocytes % (Manual) 1.0 % (0.0-7.3) 01/10/17 04:30 Eosinophils % (Manual) 0 % (0.0-4.3) 01/10/17 04:30 Basophils % (Manual) 0 % (0.0-1.8) 01/10/17 04:30 Metamyelocytes % 0 % 01/10/17 04:30 Myelocytes % 0 % 01/10/17 04:30 Promyelocytes % 0 % 01/10/17 04:30 Blast Cells % 0 % 01/10/17 04:30 Nucleated RBC % Not Reportable 01/10/17 04:30 Seg Neutrophils # 6.6 K/mm3 (1.8-7.7) 04/28/17 05:10 Seg Neutrophils # Man 21.2 K/mm3 (1.8-7.7) H 01/10/17 04:30 Band Neutrophils # 1.7 K/mm3 01/10/17 04:30 Lymphocytes # (Manual) 1.0 K/mm3 (1.2-5.4) L 01/10/17 04:30 Abs React Lymphs (Man) 0.0 K/mm3 01/10/17 04:30 Monocytes # (Manual) 0.2 K/mm3 (0.0-0.8) 01/10/17 04:30 Eosinophils # (Manual) 0.0 K/mm3 (0.0-0.4) 01/10/17 04:30 Basophils # (Manual) 0.0 K/mm3 (0.0-0.1) 01/10/17 04:30 Metamyelocytes # 0.0 K/mm3 01/10/17 04:30 Myelocytes # 0.0 K/mm3 01/10/17 04:30 Promyelocytes # 0.0 K/mm3 01/10/17 04:30 Blast Cells # 0.0 K/mm3 01/10/17 04:30 WBC Morphology Not Reportable 01/10/17 04:30 Hypersegmented Neuts Not Reportable 01/10/17 04:30 Hyposegmented Neuts Not Reportable 01/10/17 04:30 Hypogranular Neuts Not Reportable 01/10/17 04:30 Smudge Cells Not Reportable 01/10/17 04:30 Toxic Granulation Not Reportable 01/10/17 04:30 Toxic Vacuolation Not Reportable 01/10/17 04:30 Dohle Bodies Not Reportable 01/10/17 04:30 Pelger-Huet Anomaly Not Reportable 01/10/17 04:30 [place] Rods Not Reportable 01/10/17 04:30 Platelet Estimate Consistent w auto 01/10/17 04:30 Clumped Platelets Not Reportable 01/10/17 04:30 Plt Clumps, EDTA Not Reportable 01/10/17 04:30 Large Platelets Not Reportable 01/10/17 04:30 Giant Platelets Not Reportable 01/10/17 04:30 Platelet Satelliting Not Reportable 01/10/17 04:30 Plt Morphology Comment Not Reportable 01/10/17 04:30 RBC Morphology Not Reportable 01/10/17 04:30 Dimorphic RBCs Not Reportable 01/10/17 04:30 Polychromasia Not Reportable 01/10/17 04:30 Hypochromasia 1+ 01/10/17 04:30 Poikilocytosis Not Reportable 01/10/17 04:30 Anisocytosis Not Reportable 01/10/17 04:30 Microcytosis Not Reportable 01/10/17 04:30 Macrocytosis Not Reportable 01/10/17 04:30 Spherocytes Not Reportable 01/10/17 04:30 Pappenheimer Bodies Not Reportable 01/10/17 04:30 Sickle Cells Not Reportable 01/10/17 04:30 Target Cells Not Reportable 01/10/17 04:30 Tear Drop Cells Not Reportable 01/10/17 04:30 Ovalocytes Not Reportable 01/10/17 04:30 Helmet Cells Not Reportable 01/10/17 04:30 Jarrett-B[place] Bodies Not Reportable 01/10/17 04:30 [place] Rings Not Reportable 01/10/17 04:30 [place] Cells Not Reportable 01/10/17 04:30 Bite Cells Not Reportable 01/10/17 04:30 Crenated Cell Not Reportable 01/10/17 04:30 Elliptocytes Not Reportable 01/10/17 04:30 Acanthocytes (Spur) Not Reportable 01/10/17 04:30 Rouleaux Not Reportable 01/10/17 04:30 Hemoglobin C Crystals Not Reportable 01/10/17 04:30 Schistocytes Not Reportable 01/10/17 04:30 Malaria parasites Not Reportable 01/10/17 04:30 [place] Bodies Not Reportable 01/10/17 04:30 Hem Pathologist Commnt No 01/10/17 04:30 PT 14.1 Sec. (12.2-14.9) 01/17/17 04:10 INR 1.04 (0.87-1.13) 01/17/17 04:10 APTT 36.6 Sec. (24.2-36.6) 01/17/17 04:10 POC ABG pH 7.442 (7.35-7.45) 01/31/17 18:55 ABG pH 7.420 pH Units (7.350-7.450) 01/17/17 04:35 POC ABG pCO2 32.8 (35-45) L 01/31/17 18:55 ABG pCO2 34.5 mm Hg 01/17/17 04:35 POC ABG pO2 82 (80-105) 01/31/17 18:55 ABG pO2 160.3 mm Hg (80.0-90.0) H 01/17/17 04:35 POC ABG HCO3 22.4 01/31/17 18:55 ABG HCO3 21.9 mmol/L (20.0-26.0) 01/17/17 04:35 POC ABG Total CO2 23 01/31/17 18:55 POC ABG O2 Sat 97 01/31/17 18:55 ABG O2 Saturation 99.0 % (95.0-99.0) 01/17/17 04:35 ABG O2 Content 11.1 (0.0-44) 01/17/17 04:35 POC ABG Base Excess -2 01/31/17 18:55 ABG Base Excess -2.3 mmol/L (-2.0-3.0) L 01/17/17 04:35 ABG Hemoglobin 7.9 gm/dl (14.0-18.0) L 01/17/17 04:35 ABG Carboxyhemoglobin 1.5 % (0.0-5.0) 01/17/17 04:35 ABG Methemoglobin 0.5 % (0.0-1.5) 01/17/17 04:35 VBG pH 7.284 (7.320-7.420) L 01/09/17 10:16 Oxyhemoglobin 97.1 % (95.0-99.0) 01/17/17 04:35 FiO2 25 % 01/31/17 18:55 Sodium 136 mmol/L (137-145) L 04/28/17 05:10 Potassium 4.5 mmol/L (3.6-5.0) 04/28/17 05:10 Chloride 95.2 mmol/L (98-107) L 04/28/17 05:10 Carbon Dioxide 27 mmol/L (22-30) 04/28/17 05:10 Anion Gap 18 mmol/L 04/28/17 05:10 BUN 42 mg/dL (9-20) H 04/28/17 05:10 Creatinine 0.9 mg/dL (0.8-1.5) 04/28/17 05:10 Estimated GFR > 60 ml/min 04/28/17 05:10 BUN/Creatinine Ratio 47 % 04/28/17 05:10 Glucose 63 mg/dL (75-100) L 04/28/17 05:10 POC Glucose 119 (70-105) H 06/07/17 23:18 Lactic Acid 0.80 mmol/L (0.7-2.0) 01/30/17 11:49 Calcium 9.1 mg/dL (8.4-10.2) 04/28/17 05:10 Phosphorus 3.10 mg/dL (2.5-4.5) 03/29/17 04:32 Magnesium 1.90 mg/dL (1.7-2.3) 03/29/17 04:32 Total Bilirubin 0.50 mg/dL (0.1-1.2) 04/28/17 05:10 AST 45 units/L (5-40) H 04/28/17 05:10 ALT 42 units/L (7-56) 04/28/17 05:10 Alkaline Phosphatase 271 units/L (35-129) H 04/28/17 05:10 Ammonia 35.0 umol/L (25-60) 01/09/17 10:16 Total Creatine Kinase 135 units/L (55-170) 01/09/17 10:16 CK-MB (CK-2) 7.1 ng/mL (0.0-4.0) H 01/09/17 10:16 CK-MB (CK-2) Rel Index 5.2 (0-4) H 01/09/17 10:16 Troponin T < 0.010 ng/mL (0.00-0.029) 01/09/17 10:16 NT-Pro-B Natriuret Pep 602.9 pg/mL (0-900) 01/09/17 10:16 Total Protein 8.9 g/dL (6.3-8.2) H 04/28/17 05:10 Albumin 2.5 g/dL (3.9-5) L 04/28/17 05:10 Albumin/Globulin Ratio 0.4 % 04/28/17 05:10 TSH 52.800 mlU/mL (0.270-4.200) H 01/09/17 10:16 Free T4 0.78 ng/dL (0.76-1.46) 01/09/17 10:16 Total Cortisol 54.8 mcg/dL () 01/09/17 16:19 Urine Color Yellow (Yellow) 01/28/17 17:52 Urine Turbidity Clear (Clear) 01/28/17 17:52 Urine pH 6.0 (5.0-7.0) 01/28/17 17:52 Ur Specific [place] 1.016 (1.003-1.030) 01/28/17 17:52 Urine Protein 100 mg/dl mg/dL (Negative) 01/28/17 17:52 Urine Glucose (UA) >=500 mg/dL (Negative) 01/28/17 17:52 Urine Ketones Neg mg/dL (Negative) 01/28/17 17:52 Urine Blood Sm (Negative) 01/28/17 17:52 Urine Nitrite Neg (Negative) 01/28/17 17:52 Urine Bilirubin Neg (Negative) 01/28/17 17:52 Urine Urobilinogen < 2.0 mg/dL (<2.0) 01/28/17 17:52 Ur Leukocyte Esterase Lg (Negative) 01/28/17 17:52 Urine WBC (Auto) > 182.0 /HPF (0.0-6.0) H 01/28/17 17:52 Urine RBC (Auto) 113.0 /HPF (0.0-6.0) 01/28/17 17:52 Urine Bacteria (Auto) 2+ /HPF (Negative) 01/28/17 17:52 Urine WBC Clumps 3+ /HPF 01/28/17 17:52 Urine Mucus Few /HPF 01/14/17 14:07 Urine Yeast (Budding) 3+ /HPF 01/14/17 14:07 Salicylates < 0.3 mg/dL (2.8-20.0) L 01/09/17 10:16 Urine Opiates Screen Presumptive negative 01/09/17 10:23 Urine Methadone Screen Presumptive negative 01/09/17 10:23 Acetaminophen < 15.0 ug/mL (10.0-30.0) 01/09/17 10:16 Ur Barbiturates Screen Presumptive negative 01/09/17 10:23 Ur Phencyclidine Scrn Presumptive negative 01/09/17 10:23 Ur Amphetamines Screen Presumptive negative 01/09/17 10:23 U Benzodiazepines Scrn Presumptive negative 01/09/17 10:23 Urine Cocaine Screen Presumptive negative 01/09/17 10:23 U Marijuana (THC) Screen Presumptive negative 01/09/17 10:23 Drugs of Abuse Note Disclamer 01/09/17 10:23 Plasma/Serum Alcohol < 0.01 gm% (0-0.07) 01/09/17 10:16
[2017-06-08] MEDS: D50W (25GM) Syringe IV PRN (21:50)
[2017-06-08] MEDS: SIMPLE SYRUP FEEDTUBE PRN (22:07)
[2017-06-09] MEDS: HumuLIN R SUB-Q SCH ×2 (07:00→21:23)
[2017-06-09] MEDS: LEVEMIR (NF) SUB-Q SCH (09:10)
[2017-06-09] MEDS: HEPARIN SUB-Q SCH ×2 (09:11→21:35)
[2017-06-09] MEDS: PEPCID PO SCH ×2 (09:11→21:40)
--- NOTE | 2017-06-09 18:22 | Progress Note ---
Assessment and Plan Assessment and plan: 51 YO Male with CKD, HTN, DM presents to ED after found down and unresponsive by his neighbor, who subsequently called EMS. Upon arrival, patient found unresponsive on the floor with a serum glucose of 21, patient has a known history of alcohol abuse and delirium tremens. The patient was administered D5 approximate 500 mls during transport without change in mental status/level of consciousness. Pt seen and evaluated in ED was was found to be unable to protect his airway. Pt intubated and placed on vent support. Pt found to have evidence of hypothyroidism. He was started on Synthroid. He has since been in the ICU. director of rehabilitative services try to locate family, even spoke to the family who he lives with. They themselves were unaware of any family members. After ethics committee meeting on the patient. The decision was made to make him DO NOT RESUSCITATE and to transfer him to hospice. Given his very poor prognosis and poor likelihood of recovery. It was decided that was not his best interest to get trach and PEG. Therefore he'll be transferred to the hospice intubated. Now Awaiting on court ordered /state guardianship. Hypoglycemic brain injury Persistent vegetative state Metabolic encephalopathy Hypoglycemia/hypothermia, resolved Acute respiratory failure mechanical ventilator greater than 96 hours UTI with klebsiella, treated ( Cx + on 01/28), then with ESBL likely colonization hyponatremia, Hypothyroidism IDDM Hypertension low grade Fever, resolved - Cont supportive care and current medication. Monitor vitals, repeat cx on - no growth - increased dose of long acting insulin to 15 unit - Patient is DNR- needs guardianship from the state to give consent for further management, as has no family to give consent. 06/07/17: Resumed care, Guardianship has been obtained but no authority to withdraw care. Continue supportative care. History Interval history: Patient was seen and examined. Follow-up on current diagnosis. Imaging, nursing note, chart, labs and old chart reviewed. Patient remains intubated and unresponsive Hospitalist Physical - Physical exam Narrative exam: GEN: Severely fail contracted BMI 16.5, comatose HEENT: NCAT, NG tube and ET tube in place CVS/HEART: RRR, NORMAL S1S2, NO JVD, pulses present bilaterally CHEST/LUNGS: Symmetrical chest expansion, good air entry bilaterally GI/Abdomen: soft, ND, good bowel sounds, no guarding or rebound Neuro: comatose, doesn't follow commands Psych: Unresponsive - Constitutional Vitals: Temp Pulse Resp BP Pulse Ox 98.1 F 87 12 101/70 100 06/09/17 16:22 06/09/17 17:24 06/09/17 14:01 06/09/17 14:01 06/09/17 17:24 General appearance: Present: no acute distress Results - Labs CBC & Chem 7: 04/28/17 05:10 04/28/17 05:10 Labs: Laboratory Last Values WBC 9.3 K/mm3 (4.5-11.0) 04/28/17 05:10 RBC 3.48 M/mm3 (3.65-5.03) L 04/28/17 05:10 Hgb 8.8 gm/dl (11.8-15.2) L 04/28/17 05:10 Hct 26.7 % (35.5-45.6) L 04/28/17 05:10 MCV 77 fl (84-94) L 04/28/17 05:10 MCH 25 pg (28-32) L 04/28/17 05:10 MCHC 33 % (32-34) 04/28/17 05:10 RDW 17.0 % (13.2-15.2) H 04/28/17 05:10 Plt Count 515 K/mm3 (140-440) H 04/28/17 05:10 Lymph % (Auto) 18.4 % (13.4-35.0) 04/28/17 05:10 [place] % (Auto) 8.4 % (0.0-7.3) H 04/28/17 05:10 Eos % (Auto) 1.8 % (0.0-4.3) 04/28/17 05:10 Baso % (Auto) 0.8 % (0.0-1.8) 04/28/17 05:10 Lymph # 1.7 K/mm3 (1.2-5.4) 04/28/17 05:10 [place] # 0.8 K/mm3 (0.0-0.8) 04/28/17 05:10 Eos # 0.2 K/mm3 (0.0-0.4) 04/28/17 05:10 Baso # 0.1 K/mm3 (0.0-0.1) 04/28/17 05:10 Add Manual Diff Complete 01/10/17 04:30 Total Counted 100 01/10/17 04:30 Seg Neutrophils % 70.6 % (40.0-70.0) H 04/28/17 05:10 Seg Neuts % (Manual) 88.0 % (40.0-70.0) H 01/10/17 04:30 Band Neutrophils % 7.0 % 01/10/17 04:30 Lymphocytes % (Manual) 4.0 % (13.4-35.0) L 01/10/17 04:30 Reactive Lymphs % (Man) 0 % 01/10/17 04:30 Monocytes % (Manual) 1.0 % (0.0-7.3) 01/10/17 04:30 Eosinophils % (Manual) 0 % (0.0-4.3) 01/10/17 04:30 Basophils % (Manual) 0 % (0.0-1.8) 01/10/17 04:30 Metamyelocytes % 0 % 01/10/17 04:30 Myelocytes % 0 % 01/10/17 04:30 Promyelocytes % 0 % 01/10/17 04:30 Blast Cells % 0 % 01/10/17 04:30 Nucleated RBC % Not Reportable 01/10/17 04:30 Seg Neutrophils # 6.6 K/mm3 (1.8-7.7) 04/28/17 05:10 Seg Neutrophils # Man 21.2 K/mm3 (1.8-7.7) H 01/10/17 04:30 Band Neutrophils # 1.7 K/mm3 01/10/17 04:30 Lymphocytes # (Manual) 1.0 K/mm3 (1.2-5.4) L 01/10/17 04:30 Abs React Lymphs (Man) 0.0 K/mm3 01/10/17 04:30 Monocytes # (Manual) 0.2 K/mm3 (0.0-0.8) 01/10/17 04:30 Eosinophils # (Manual) 0.0 K/mm3 (0.0-0.4) 01/10/17 04:30 Basophils # (Manual) 0.0 K/mm3 (0.0-0.1) 01/10/17 04:30 Metamyelocytes # 0.0 K/mm3 01/10/17 04:30 Myelocytes # 0.0 K/mm3 01/10/17 04:30 Promyelocytes # 0.0 K/mm3 01/10/17 04:30 Blast Cells # 0.0 K/mm3 01/10/17 04:30 WBC Morphology Not Reportable 01/10/17 04:30 Hypersegmented Neuts Not Reportable 01/10/17 04:30 Hyposegmented Neuts Not Reportable 01/10/17 04:30 Hypogranular Neuts Not Reportable 01/10/17 04:30 Smudge Cells Not Reportable 01/10/17 04:30 Toxic Granulation Not Reportable 01/10/17 04:30 Toxic Vacuolation Not Reportable 01/10/17 04:30 Dohle Bodies Not Reportable 01/10/17 04:30 Pelger-Huet Anomaly Not Reportable 01/10/17 04:30 Shelby Rods Not Reportable 01/10/17 04:30 Platelet Estimate Consistent w auto 01/10/17 04:30 Clumped Platelets Not Reportable 01/10/17 04:30 Plt Clumps, EDTA Not Reportable 01/10/17 04:30 Large Platelets Not Reportable 01/10/17 04:30 Giant Platelets Not Reportable 01/10/17 04:30 Platelet Satelliting Not Reportable 01/10/17 04:30 Plt Morphology Comment Not Reportable 01/10/17 04:30 RBC Morphology Not Reportable 01/10/17 04:30 Dimorphic RBCs Not Reportable 01/10/17 04:30 Polychromasia Not Reportable 01/10/17 04:30 Hypochromasia 1+ 01/10/17 04:30 Poikilocytosis Not Reportable 01/10/17 04:30 Anisocytosis Not Reportable 01/10/17 04:30 Microcytosis Not Reportable 01/10/17 04:30 Macrocytosis Not Reportable 01/10/17 04:30 Spherocytes Not Reportable 01/10/17 04:30 Pappenheimer Bodies Not Reportable 01/10/17 04:30 Sickle Cells Not Reportable 01/10/17 04:30 Target Cells Not Reportable 01/10/17 04:30 Tear Drop Cells Not Reportable 01/10/17 04:30 Ovalocytes Not Reportable 01/10/17 04:30 Helmet Cells Not Reportable 01/10/17 04:30 Jarrett-[place] Bodies Not Reportable 01/10/17 04:30 [place] Rings Not Reportable 01/10/17 04:30 Jessica Cells Not Reportable 01/10/17 04:30 Bite Cells Not Reportable 01/10/17 04:30 Crenated Cell Not Reportable 01/10/17 04:30 Elliptocytes Not Reportable 01/10/17 04:30 Acanthocytes (Spur) Not Reportable 01/10/17 04:30 Rouleaux Not Reportable 01/10/17 04:30 Hemoglobin C Crystals Not Reportable 01/10/17 04:30 Schistocytes Not Reportable 01/10/17 04:30 Malaria parasites Not Reportable 01/10/17 04:30 Kyle Bodies Not Reportable 01/10/17 04:30 Hem Pathologist Commnt No 01/10/17 04:30 PT 14.1 Sec. (12.2-14.9) 01/17/17 04:10 INR 1.04 (0.87-1.13) 01/17/17 04:10 APTT 36.6 Sec. (24.2-36.6) 01/17/17 04:10 POC ABG pH 7.442 (7.35-7.45) 01/31/17 18:55 ABG pH 7.420 pH Units (7.350-7.450) 01/17/17 04:35 POC ABG pCO2 32.8 (35-45) L 01/31/17 18:55 ABG pCO2 34.5 mm Hg 01/17/17 04:35 POC ABG pO2 82 (80-105) 01/31/17 18:55 ABG pO2 160.3 mm Hg (80.0-90.0) H 01/17/17 04:35 POC ABG HCO3 22.4 01/31/17 18:55 ABG HCO3 21.9 mmol/L (20.0-26.0) 01/17/17 04:35 POC ABG Total CO2 23 01/31/17 18:55 POC ABG O2 Sat 97 01/31/17 18:55 ABG O2 Saturation 99.0 % (95.0-99.0) 01/17/17 04:35 ABG O2 Content 11.1 (0.0-44) 01/17/17 04:35 POC ABG Base Excess -2 01/31/17 18:55 ABG Base Excess -2.3 mmol/L (-2.0-3.0) L 01/17/17 04:35 ABG Hemoglobin 7.9 gm/dl (14.0-18.0) L 01/17/17 04:35 ABG Carboxyhemoglobin 1.5 % (0.0-5.0) 01/17/17 04:35 ABG Methemoglobin 0.5 % (0.0-1.5) 01/17/17 04:35 VBG pH 7.284 (7.320-7.420) L 01/09/17 10:16 Oxyhemoglobin 97.1 % (95.0-99.0) 01/17/17 04:35 FiO2 25 % 01/31/17 18:55 Sodium 136 mmol/L (137-145) L 04/28/17 05:10 Potassium 4.5 mmol/L (3.6-5.0) 04/28/17 05:10 Chloride 95.2 mmol/L (98-107) L 04/28/17 05:10 Carbon Dioxide 27 mmol/L (22-30) 04/28/17 05:10 Anion Gap 18 mmol/L 04/28/17 05:10 BUN 42 mg/dL (9-20) H 04/28/17 05:10 Creatinine 0.9 mg/dL (0.8-1.5) 04/28/17 05:10 Estimated GFR > 60 ml/min 04/28/17 05:10 BUN/Creatinine Ratio 47 % 04/28/17 05:10 Glucose 63 mg/dL (75-100) L 04/28/17 05:10 POC Glucose 227 (70-105) H 06/09/17 15:07 Lactic Acid 0.80 mmol/L (0.7-2.0) 01/30/17 11:49 Calcium 9.1 mg/dL (8.4-10.2) 04/28/17 05:10 Phosphorus 3.10 mg/dL (2.5-4.5) 03/29/17 04:32 Magnesium 1.90 mg/dL (1.7-2.3) 03/29/17 04:32 Total Bilirubin 0.50 mg/dL (0.1-1.2) 04/28/17 05:10 AST 45 units/L (5-40) H 04/28/17 05:10 ALT 42 units/L (7-56) 04/28/17 05:10 Alkaline Phosphatase 271 units/L (35-129) H 04/28/17 05:10 Ammonia 35.0 umol/L (25-60) 01/09/17 10:16 Total Creatine Kinase 135 units/L (55-170) 01/09/17 10:16 CK-MB (CK-2) 7.1 ng/mL (0.0-4.0) H 01/09/17 10:16 CK-MB (CK-2) Rel Index 5.2 (0-4) H 01/09/17 10:16 Troponin T < 0.010 ng/mL (0.00-0.029) 01/09/17 10:16 NT-Pro-B Natriuret Pep 602.9 pg/mL (0-900) 01/09/17 10:16 Total Protein 8.9 g/dL (6.3-8.2) H 04/28/17 05:10 Albumin 2.5 g/dL (3.9-5) L 04/28/17 05:10 Albumin/Globulin Ratio 0.4 % 04/28/17 05:10 TSH 52.800 mlU/mL (0.270-4.200) H 01/09/17 10:16 Free T4 0.78 ng/dL (0.76-1.46) 01/09/17 10:16 Total Cortisol 54.8 mcg/dL () 01/09/17 16:19 Urine Color Yellow (Yellow) 01/28/17 17:52 Urine Turbidity Clear (Clear) 01/28/17 17:52 Urine pH 6.0 (5.0-7.0) 01/28/17 17:52 Ur Specific [place] 1.016 (1.003-1.030) 01/28/17 17:52 Urine Protein 100 mg/dl mg/dL (Negative) 01/28/17 17:52 Urine Glucose (UA) >=500 mg/dL (Negative) 01/28/17 17:52 Urine Ketones Neg mg/dL (Negative) 01/28/17 17:52 Urine Blood Sm (Negative) 01/28/17 17:52 Urine Nitrite Neg (Negative) 01/28/17 17:52 Urine Bilirubin Neg (Negative) 01/28/17 17:52 Urine Urobilinogen < 2.0 mg/dL (<2.0) 01/28/17 17:52 Ur Leukocyte Esterase Lg (Negative) 01/28/17 17:52 Urine WBC (Auto) > 182.0 /HPF (0.0-6.0) H 01/28/17 17:52 Urine RBC (Auto) 113.0 /HPF (0.0-6.0) 01/28/17 17:52 Urine Bacteria (Auto) 2+ /HPF (Negative) 01/28/17 17:52 Urine WBC Clumps 3+ /HPF 01/28/17 17:52 Urine Mucus Few /HPF 01/14/17 14:07 Urine Yeast (Bud[place]) 3+ /HPF 01/14/17 14:07 Salicylates < 0.3 mg/dL (2.8-20.0) L 01/09/17 10:16 Urine Opiates Screen Presumptive negative 01/09/17 10:23 Urine Methadone Screen Presumptive negative 01/09/17 10:23 Acetaminophen < 15.0 ug/mL (10.0-30.0) 01/09/17 10:16 Ur Barbiturates Screen Presumptive negative 01/09/17 10:23 Ur Phencyclidine Scrn Presumptive negative 01/09/17 10:23 Ur Amphetamines Screen Presumptive negative 01/09/17 10:23 U Benzodiazepines Scrn Presumptive negative 01/09/17 10:23 Urine Cocaine Screen Presumptive negative 01/09/17 10:23 U Marijuana (THC) Screen Presumptive negative 01/09/17 10:23 Drugs of Abuse Note Disclamer 01/09/17 10:23 Plasma/Serum Alcohol < 0.01 gm% (0-0.07) 01/09/17 10:16
[2017-06-10] MEDS: HumuLIN R SUB-Q SCH ×2 (06:47→06:48)
[2017-06-10] MEDS: PEPCID PO SCH ×2 (09:37→21:37)
[2017-06-10] MEDS: HEPARIN SUB-Q SCH ×2 (09:38→21:37)
[2017-06-10] MEDS: LEVEMIR (NF) SUB-Q SCH (09:44)
[2017-06-11] MEDS: HumuLIN R SUB-Q SCH ×2 (05:35→21:39)
[2017-06-11] MEDS: LEVEMIR (NF) SUB-Q SCH (10:28)
[2017-06-11] MEDS: HEPARIN SUB-Q SCH ×2 (10:44→21:23)
[2017-06-11] MEDS: PEPCID PO SCH ×2 (10:44→21:24)
--- NOTE | 2017-06-11 13:38 | Progress Note ---
Assessment and Plan Assessment and plan: 51 YO Male with CKD, HTN, DM presents to ED after found down and unresponsive by his neighbor, who subsequently called EMS. Upon arrival, patient found unresponsive on the floor with a serum glucose of 21, patient has a known history of alcohol abuse and delirium tremens. The patient was administered D5 approximate 500 mls during transport without change in mental status/level of consciousness. Pt seen and evaluated in ED was was found to be unable to protect his airway. Pt intubated and placed on vent support. Pt found to have evidence of hypothyroidism. He was started on Synthroid. He has since been in the ICU. media services specialist try to locate family, even spoke to the family who he lives with. They themselves were unaware of any family members. After ethics committee meeting on the patient. The decision was made to make him DO NOT RESUSCITATE and to transfer him to hospice. Given his very poor prognosis and poor likelihood of recovery. It was decided that was not his best interest to get trach and PEG. Therefore he'll be transferred to the hospice intubated. Now Awaiting on court ordered /state guardianship. Hypoglycemic brain injury Persistent vegetative state Metabolic encephalopathy Hypoglycemia/hypothermia, resolved Acute respiratory failure mechanical ventilator greater than 96 hours UTI with klebsiella, treated ( Cx + on 01/28), then with ESBL likely colonization hyponatremia, Hypothyroidism IDDM Hypertension low grade Fever, resolved - Cont supportive care and current medication. Monitor vitals, repeat cx on - no growth - increased dose of long acting insulin to 15 unit - Patient is DNR- needs guardianship from the state to give consent for further management, as has no family to give consent. 06/07/17: Resumed care, Guardianship has been obtained but no authority to withdraw care. Continue supportive care. History Interval history: Patient was seen and examined. Follow-up on current diagnosis. Imaging, nursing note, chart, labs and old chart reviewed. Patient remains intubated and unresponsive Hospitalist Physical - Physical exam Narrative exam: GEN: Severely fail contracted BMI 16.5, comatose HEENT: NCAT, NG tube and ET tube in place CVS/HEART: RRR, NORMAL S1S2, NO JVD, pulses present bilaterally CHEST/LUNGS: Symmetrical chest expansion, good air entry bilaterally GI/Abdomen: soft, ND, good bowel sounds, no guarding or rebound Neuro: comatose, doesn't follow commands Psych: Unresponsive - Constitutional Vitals: Temp Pulse Resp BP Pulse Ox 97 F L 81 16 121/79 96 06/11/17 08:00 06/11/17 11:53 06/11/17 11:53 06/11/17 08:54 06/11/17 11:53 General appearance: Present: no acute distress Results - Labs CBC & Chem 7: 04/28/17 05:10 04/28/17 05:10 Labs: Laboratory Last Values WBC 9.3 K/mm3 (4.5-11.0) 04/28/17 05:10 RBC 3.48 M/mm3 (3.65-5.03) L 04/28/17 05:10 Hgb 8.8 gm/dl (11.8-15.2) L 04/28/17 05:10 Hct 26.7 % (35.5-45.6) L 04/28/17 05:10 MCV 77 fl (84-94) L 04/28/17 05:10 MCH 25 pg (28-32) L 04/28/17 05:10 MCHC 33 % (32-34) 04/28/17 05:10 RDW 17.0 % (13.2-15.2) H 04/28/17 05:10 Plt Count 515 K/mm3 (140-440) H 04/28/17 05:10 Lymph % (Auto) 18.4 % (13.4-35.0) 04/28/17 05:10 [place] % (Auto) 8.4 % (0.0-7.3) H 04/28/17 05:10 Eos % (Auto) 1.8 % (0.0-4.3) 04/28/17 05:10 Baso % (Auto) 0.8 % (0.0-1.8) 04/28/17 05:10 Lymph # 1.7 K/mm3 (1.2-5.4) 04/28/17 05:10 [place] # 0.8 K/mm3 (0.0-0.8) 04/28/17 05:10 Eos # 0.2 K/mm3 (0.0-0.4) 04/28/17 05:10 Baso # 0.1 K/mm3 (0.0-0.1) 04/28/17 05:10 Add Manual Diff Complete 01/10/17 04:30 Total Counted 100 01/10/17 04:30 Seg Neutrophils % 70.6 % (40.0-70.0) H 04/28/17 05:10 Seg Neuts % (Manual) 88.0 % (40.0-70.0) H 01/10/17 04:30 Band Neutrophils % 7.0 % 01/10/17 04:30 Lymphocytes % (Manual) 4.0 % (13.4-35.0) L 01/10/17 04:30 Reactive Lymphs % (Man) 0 % 01/10/17 04:30 Monocytes % (Manual) 1.0 % (0.0-7.3) 01/10/17 04:30 Eosinophils % (Manual) 0 % (0.0-4.3) 01/10/17 04:30 Basophils % (Manual) 0 % (0.0-1.8) 01/10/17 04:30 Metamyelocytes % 0 % 01/10/17 04:30 Myelocytes % 0 % 01/10/17 04:30 Promyelocytes % 0 % 01/10/17 04:30 Blast Cells % 0 % 01/10/17 04:30 Nucleated RBC % Not Reportable 01/10/17 04:30 Seg Neutrophils # 6.6 K/mm3 (1.8-7.7) 04/28/17 05:10 Seg Neutrophils # Man 21.2 K/mm3 (1.8-7.7) H 01/10/17 04:30 Band Neutrophils # 1.7 K/mm3 01/10/17 04:30 Lymphocytes # (Manual) 1.0 K/mm3 (1.2-5.4) L 01/10/17 04:30 Abs React Lymphs (Man) 0.0 K/mm3 01/10/17 04:30 Monocytes # (Manual) 0.2 K/mm3 (0.0-0.8) 01/10/17 04:30 Eosinophils # (Manual) 0.0 K/mm3 (0.0-0.4) 01/10/17 04:30 Basophils # (Manual) 0.0 K/mm3 (0.0-0.1) 01/10/17 04:30 Metamyelocytes # 0.0 K/mm3 01/10/17 04:30 Myelocytes # 0.0 K/mm3 01/10/17 04:30 Promyelocytes # 0.0 K/mm3 01/10/17 04:30 Blast Cells # 0.0 K/mm3 01/10/17 04:30 WBC Morphology Not Reportable 01/10/17 04:30 Hypersegmented Neuts Not Reportable 01/10/17 04:30 Hyposegmented Neuts Not Reportable 01/10/17 04:30 Hypogranular Neuts Not Reportable 01/10/17 04:30 Smudge Cells Not Reportable 01/10/17 04:30 Toxic Granulation Not Reportable 01/10/17 04:30 Toxic Vacuolation Not Reportable 01/10/17 04:30 Dohle Bodies Not Reportable 01/10/17 04:30 Pelger-Huet Anomaly Not Reportable 01/10/17 04:30 [place] Rods Not Reportable 01/10/17 04:30 Platelet Estimate Consistent w auto 01/10/17 04:30 Clumped Platelets Not Reportable 01/10/17 04:30 Plt Clumps, EDTA Not Reportable 01/10/17 04:30 Large Platelets Not Reportable 01/10/17 04:30 Giant Platelets Not Reportable 01/10/17 04:30 Platelet Satelliting Not Reportable 01/10/17 04:30 Plt Morphology Comment Not Reportable 01/10/17 04:30 RBC Morphology Not Reportable 01/10/17 04:30 Dimorphic RBCs Not Reportable 01/10/17 04:30 Polychromasia Not Reportable 01/10/17 04:30 Hypochromasia 1+ 01/10/17 04:30 Poikilocytosis Not Reportable 01/10/17 04:30 Anisocytosis Not Reportable 01/10/17 04:30 Microcytosis Not Reportable 01/10/17 04:30 Macrocytosis Not Reportable 01/10/17 04:30 Spherocytes Not Reportable 01/10/17 04:30 Pappenheimer Bodies Not Reportable 01/10/17 04:30 Sickle Cells Not Reportable 01/10/17 04:30 Target Cells Not Reportable 01/10/17 04:30 Tear Drop Cells Not Reportable 01/10/17 04:30 Ovalocytes Not Reportable 01/10/17 04:30 Helmet Cells Not Reportable 01/10/17 04:30 [place] Bodies Not Reportable 01/10/17 04:30 [place] Rings Not Reportable 01/10/17 04:30 Jessica Cells Not Reportable 01/10/17 04:30 Bite Cells Not Reportable 01/10/17 04:30 Crenated Cell Not Reportable 01/10/17 04:30 Elliptocytes Not Reportable 01/10/17 04:30 Acanthocytes (Spur) Not Reportable 01/10/17 04:30 Rouleaux Not Reportable 01/10/17 04:30 Hemoglobin C Crystals Not Reportable 01/10/17 04:30 Schistocytes Not Reportable 01/10/17 04:30 Malaria parasites Not Reportable 01/10/17 04:30 Kyle Bodies Not Reportable 01/10/17 04:30 Hem Pathologist Commnt No 01/10/17 04:30 PT 14.1 Sec. (12.2-14.9) 01/17/17 04:10 INR 1.04 (0.87-1.13) 01/17/17 04:10 APTT 36.6 Sec. (24.2-36.6) 01/17/17 04:10 POC ABG pH 7.442 (7.35-7.45) 01/31/17 18:55 ABG pH 7.420 pH Units (7.350-7.450) 01/17/17 04:35 POC ABG pCO2 32.8 (35-45) L 01/31/17 18:55 ABG pCO2 34.5 mm Hg 01/17/17 04:35 POC ABG pO2 82 (80-105) 01/31/17 18:55 ABG pO2 160.3 mm Hg (80.0-90.0) H 01/17/17 04:35 POC ABG HCO3 22.4 01/31/17 18:55 ABG HCO3 21.9 mmol/L (20.0-26.0) 01/17/17 04:35 POC ABG Total CO2 23 01/31/17 18:55 POC ABG O2 Sat 97 01/31/17 18:55 ABG O2 Saturation 99.0 % (95.0-99.0) 01/17/17 04:35 ABG O2 Content 11.1 (0.0-44) 01/17/17 04:35 POC ABG Base Excess -2 01/31/17 18:55 ABG Base Excess -2.3 mmol/L (-2.0-3.0) L 01/17/17 04:35 ABG Hemoglobin 7.9 gm/dl (14.0-18.0) L 01/17/17 04:35 ABG Carboxyhemoglobin 1.5 % (0.0-5.0) 01/17/17 04:35 ABG Methemoglobin 0.5 % (0.0-1.5) 01/17/17 04:35 VBG pH 7.284 (7.320-7.420) L 01/09/17 10:16 Oxyhemoglobin 97.1 % (95.0-99.0) 01/17/17 04:35 FiO2 25 % 01/31/17 18:55 Sodium 136 mmol/L (137-145) L 04/28/17 05:10 Potassium 4.5 mmol/L (3.6-5.0) 04/28/17 05:10 Chloride 95.2 mmol/L (98-107) L 04/28/17 05:10 Carbon Dioxide 27 mmol/L (22-30) 04/28/17 05:10 Anion Gap 18 mmol/L 04/28/17 05:10 BUN 42 mg/dL (9-20) H 04/28/17 05:10 Creatinine 0.9 mg/dL (0.8-1.5) 04/28/17 05:10 Estimated GFR > 60 ml/min 04/28/17 05:10 BUN/Creatinine Ratio 47 % 04/28/17 05:10 Glucose 63 mg/dL (75-100) L 04/28/17 05:10 POC Glucose 158 (70-105) H 06/11/17 05:36 Lactic Acid 0.80 mmol/L (0.7-2.0) 01/30/17 11:49 Calcium 9.1 mg/dL (8.4-10.2) 04/28/17 05:10 Phosphorus 3.10 mg/dL (2.5-4.5) 03/29/17 04:32 Magnesium 1.90 mg/dL (1.7-2.3) 03/29/17 04:32 Total Bilirubin 0.50 mg/dL (0.1-1.2) 04/28/17 05:10 AST 45 units/L (5-40) H 04/28/17 05:10 ALT 42 units/L (7-56) 04/28/17 05:10 Alkaline Phosphatase 271 units/L (35-129) H 04/28/17 05:10 Ammonia 35.0 umol/L (25-60) 01/09/17 10:16 Total Creatine Kinase 135 units/L (55-170) 01/09/17 10:16 CK-MB (CK-2) 7.1 ng/mL (0.0-4.0) H 01/09/17 10:16 CK-MB (CK-2) Rel Index 5.2 (0-4) H 01/09/17 10:16 Troponin T < 0.010 ng/mL (0.00-0.029) 01/09/17 10:16 NT-Pro-B Natriuret Pep 602.9 pg/mL (0-900) 01/09/17 10:16 Total Protein 8.9 g/dL (6.3-8.2) H 04/28/17 05:10 Albumin 2.5 g/dL (3.9-5) L 04/28/17 05:10 Albumin/Globulin Ratio 0.4 % 04/28/17 05:10 TSH 52.800 mlU/mL (0.270-4.200) H 01/09/17 10:16 Free T4 0.78 ng/dL (0.76-1.46) 01/09/17 10:16 Total Cortisol 54.8 mcg/dL () 01/09/17 16:19 Urine Color Yellow (Yellow) 01/28/17 17:52 Urine Turbidity Clear (Clear) 01/28/17 17:52 Urine pH 6.0 (5.0-7.0) 01/28/17 17:52 Ur Specific [place] 1.016 (1.003-1.030) 01/28/17 17:52 Urine Protein 100 mg/dl mg/dL (Negative) 01/28/17 17:52 Urine Glucose (UA) >=500 mg/dL (Negative) 01/28/17 17:52 Urine Ketones Neg mg/dL (Negative) 01/28/17 17:52 Urine Blood Sm (Negative) 01/28/17 17:52 Urine Nitrite Neg (Negative) 01/28/17 17:52 Urine Bilirubin Neg (Negative) 01/28/17 17:52 Urine Urobilinogen < 2.0 mg/dL (<2.0) 01/28/17 17:52 Ur Leukocyte Esterase Lg (Negative) 01/28/17 17:52 Urine WBC (Auto) > 182.0 /HPF (0.0-6.0) H 01/28/17 17:52 Urine RBC (Auto) 113.0 /HPF (0.0-6.0) 01/28/17 17:52 Urine Bacteria (Auto) 2+ /HPF (Negative) 01/28/17 17:52 Urine WBC Clumps 3+ /HPF 01/28/17 17:52 Urine Mucus Few /HPF 01/14/17 14:07 Urine Yeast (Budding) 3+ /HPF 01/14/17 14:07 Salicylates < 0.3 mg/dL (2.8-20.0) L 01/09/17 10:16 Urine Opiates Screen Presumptive negative 01/09/17 10:23 Urine Methadone Screen Presumptive negative 01/09/17 10:23 Acetaminophen < 15.0 ug/mL (10.0-30.0) 01/09/17 10:16 Ur Barbiturates Screen Presumptive negative 01/09/17 10:23 Ur Phencyclidine Scrn Presumptive negative 01/09/17 10:23 Ur Amphetamines Screen Presumptive negative 01/09/17 10:23 U Benzodiazepines Scrn Presumptive negative 01/09/17 10:23 Urine Cocaine Screen Presumptive negative 01/09/17 10:23 U Marijuana (THC) Screen Presumptive negative 01/09/17 10:23 Drugs of Abuse Note Disclamer 01/09/17 10:23 Plasma/Serum Alcohol < 0.01 gm% (0-0.07) 01/09/17 10:16
[2017-06-12] MEDS: HumuLIN R SUB-Q SCH ×3 (01:59→22:36)
[2017-06-12] MEDS: LEVEMIR (NF) SUB-Q SCH (08:33)
[2017-06-12] MEDS: PEPCID PO SCH ×2 (09:48→22:35)
[2017-06-12] MEDS: HEPARIN SUB-Q SCH ×2 (09:48→22:35)
--- NOTE | 2017-06-12 13:13 | Progress Note ---
Assessment and Plan Assessment and plan: 51 YO Male with CKD, HTN, DM presents to ED after found down and unresponsive by his neighbor, who subsequently called EMS. Upon arrival, patient found unresponsive on the floor with a serum glucose of 21, patient has a known history of alcohol abuse and delirium tremens. The patient was administered D5 approximate 500 mls during transport without change in mental status/level of consciousness. Pt seen and evaluated in ED was was found to be unable to protect his airway. Pt intubated and placed on vent support. Pt found to have evidence of hypothyroidism. He was started on Synthroid. He has since been in the ICU. director of professional services try to locate family, even spoke to the family who he lives with. They themselves were unaware of any family members. After ethics committee meeting on the patient. The decision was made to make him DO NOT RESUSCITATE and to transfer him to hospice. Given his very poor prognosis and poor likelihood of recovery. It was decided that was not his best interest to get trach and PEG. Therefore he'll be transferred to the hospice intubated. Now Awaiting on court ordered /state guardianship. Hypoglycemic brain injury Persistent vegetative state Metabolic encephalopathy Hypoglycemia/hypothermia, resolved Acute respiratory failure mechanical ventilator greater than 96 hours UTI with klebsiella, treated ( Cx + on 01/28), then with ESBL likely colonization hyponatremia, Hypothyroidism IDDM Hypertension low grade Fever, resolved - Cont supportive care and current medication. Monitor vitals, repeat cx on - no growth - increased dose of long acting insulin to 15 unit - Patient is DNR- needs guardianship from the state to give consent for further management, as has no family to give consent. 06/07/17: Resumed care, Guardianship has been obtained but no authority to withdraw care. Continue supportive care. History Interval history: Patient was seen and examined. Follow-up on current diagnosis. Imaging, nursing note, chart, labs and old chart reviewed. Patient remains intubated and unresponsive Hospitalist Physical - Physical exam Narrative exam: GEN: Severely fail contracted BMI 16.5, comatose HEENT: NCAT, NG tube and ET tube in place CVS/HEART: RRR, NORMAL S1S2, NO JVD, pulses present bilaterally CHEST/LUNGS: Symmetrical chest expansion, good air entry bilaterally GI/Abdomen: soft, ND, good bowel sounds, no guarding or rebound Neuro: comatose, doesn't follow commands Psych: Unresponsive - Constitutional Vitals: Temp Pulse Resp BP Pulse Ox 98.1 F 80 16 111/73 96 06/12/17 06:00 06/12/17 12:52 06/12/17 12:52 06/12/17 12:52 06/12/17 12:52 General appearance: Present: no acute distress Results - Labs CBC & Chem 7: 04/28/17 05:10 04/28/17 05:10 Labs: Laboratory Last Values WBC 9.3 K/mm3 (4.5-11.0) 04/28/17 05:10 RBC 3.48 M/mm3 (3.65-5.03) L 04/28/17 05:10 Hgb 8.8 gm/dl (11.8-15.2) L 04/28/17 05:10 Hct 26.7 % (35.5-45.6) L 04/28/17 05:10 MCV 77 fl (84-94) L 04/28/17 05:10 MCH 25 pg (28-32) L 04/28/17 05:10 MCHC 33 % (32-34) 04/28/17 05:10 RDW 17.0 % (13.2-15.2) H 04/28/17 05:10 Plt Count 515 K/mm3 (140-440) H 04/28/17 05:10 Lymph % (Auto) 18.4 % (13.4-35.0) 04/28/17 05:10 [place] % (Auto) 8.4 % (0.0-7.3) H 04/28/17 05:10 Eos % (Auto) 1.8 % (0.0-4.3) 04/28/17 05:10 Baso % (Auto) 0.8 % (0.0-1.8) 04/28/17 05:10 Lymph # 1.7 K/mm3 (1.2-5.4) 04/28/17 05:10 [place] # 0.8 K/mm3 (0.0-0.8) 04/28/17 05:10 Eos # 0.2 K/mm3 (0.0-0.4) 04/28/17 05:10 Baso # 0.1 K/mm3 (0.0-0.1) 04/28/17 05:10 Add Manual Diff Complete 01/10/17 04:30 Total Counted 100 01/10/17 04:30 Seg Neutrophils % 70.6 % (40.0-70.0) H 04/28/17 05:10 Seg Neuts % (Manual) 88.0 % (40.0-70.0) H 01/10/17 04:30 Band Neutrophils % 7.0 % 01/10/17 04:30 Lymphocytes % (Manual) 4.0 % (13.4-35.0) L 01/10/17 04:30 Reactive Lymphs % (Man) 0 % 01/10/17 04:30 Monocytes % (Manual) 1.0 % (0.0-7.3) 01/10/17 04:30 Eosinophils % (Manual) 0 % (0.0-4.3) 01/10/17 04:30 Basophils % (Manual) 0 % (0.0-1.8) 01/10/17 04:30 Metamyelocytes % 0 % 01/10/17 04:30 Myelocytes % 0 % 01/10/17 04:30 Promyelocytes % 0 % 01/10/17 04:30 Blast Cells % 0 % 01/10/17 04:30 Nucleated RBC % Not Reportable 01/10/17 04:30 Seg Neutrophils # 6.6 K/mm3 (1.8-7.7) 04/28/17 05:10 Seg Neutrophils # Man 21.2 K/mm3 (1.8-7.7) H 01/10/17 04:30 Band Neutrophils # 1.7 K/mm3 01/10/17 04:30 Lymphocytes # (Manual) 1.0 K/mm3 (1.2-5.4) L 01/10/17 04:30 Abs React Lymphs (Man) 0.0 K/mm3 01/10/17 04:30 Monocytes # (Manual) 0.2 K/mm3 (0.0-0.8) 01/10/17 04:30 Eosinophils # (Manual) 0.0 K/mm3 (0.0-0.4) 01/10/17 04:30 Basophils # (Manual) 0.0 K/mm3 (0.0-0.1) 01/10/17 04:30 Metamyelocytes # 0.0 K/mm3 01/10/17 04:30 Myelocytes # 0.0 K/mm3 01/10/17 04:30 Promyelocytes # 0.0 K/mm3 01/10/17 04:30 Blast Cells # 0.0 K/mm3 01/10/17 04:30 WBC Morphology Not Reportable 01/10/17 04:30 Hypersegmented Neuts Not Reportable 01/10/17 04:30 Hyposegmented Neuts Not Reportable 01/10/17 04:30 Hypogranular Neuts Not Reportable 01/10/17 04:30 Smudge Cells Not Reportable 01/10/17 04:30 Toxic Granulation Not Reportable 01/10/17 04:30 Toxic Vacuolation Not Reportable 01/10/17 04:30 Dohle Bodies Not Reportable 01/10/17 04:30 Pelger-Huet Anomaly Not Reportable 01/10/17 04:30 Shelby Rods Not Reportable 01/10/17 04:30 Platelet Estimate Consistent w auto 01/10/17 04:30 Clumped Platelets Not Reportable 01/10/17 04:30 Plt Clumps, EDTA Not Reportable 01/10/17 04:30 Large Platelets Not Reportable 01/10/17 04:30 Giant Platelets Not Reportable 01/10/17 04:30 Platelet Satelliting Not Reportable 01/10/17 04:30 Plt Morphology Comment Not Reportable 01/10/17 04:30 RBC Morphology Not Reportable 01/10/17 04:30 Dimorphic RBCs Not Reportable 01/10/17 04:30 Polychromasia Not Reportable 01/10/17 04:30 Hypochromasia 1+ 01/10/17 04:30 Poikilocytosis Not Reportable 01/10/17 04:30 Anisocytosis Not Reportable 01/10/17 04:30 Microcytosis Not Reportable 01/10/17 04:30 Macrocytosis Not Reportable 01/10/17 04:30 Spherocytes Not Reportable 01/10/17 04:30 Pappenheimer Bodies Not Reportable 01/10/17 04:30 Sickle Cells Not Reportable 01/10/17 04:30 Target Cells Not Reportable 01/10/17 04:30 Tear Drop Cells Not Reportable 01/10/17 04:30 Ovalocytes Not Reportable 01/10/17 04:30 Helmet Cells Not Reportable 01/10/17 04:30 [place] Bodies Not Reportable 01/10/17 04:30 [place] Rings Not Reportable 01/10/17 04:30 Jessica Cells Not Reportable 01/10/17 04:30 Bite Cells Not Reportable 01/10/17 04:30 Crenated Cell Not Reportable 01/10/17 04:30 Elliptocytes Not Reportable 01/10/17 04:30 Acanthocytes (Spur) Not Reportable 01/10/17 04:30 Rouleaux Not Reportable 01/10/17 04:30 Hemoglobin C Crystals Not Reportable 01/10/17 04:30 Schistocytes Not Reportable 01/10/17 04:30 Malaria parasites Not Reportable 01/10/17 04:30 [place] Bodies Not Reportable 01/10/17 04:30 Hem Pathologist Commnt No 01/10/17 04:30 PT 14.1 Sec. (12.2-14.9) 01/17/17 04:10 INR 1.04 (0.87-1.13) 01/17/17 04:10 APTT 36.6 Sec. (24.2-36.6) 01/17/17 04:10 POC ABG pH 7.442 (7.35-7.45) 01/31/17 18:55 ABG pH 7.420 pH Units (7.350-7.450) 01/17/17 04:35 POC ABG pCO2 32.8 (35-45) L 01/31/17 18:55 ABG pCO2 34.5 mm Hg 01/17/17 04:35 POC ABG pO2 82 (80-105) 01/31/17 18:55 ABG pO2 160.3 mm Hg (80.0-90.0) H 01/17/17 04:35 POC ABG HCO3 22.4 01/31/17 18:55 ABG HCO3 21.9 mmol/L (20.0-26.0) 01/17/17 04:35 POC ABG Total CO2 23 01/31/17 18:55 POC ABG O2 Sat 97 01/31/17 18:55 ABG O2 Saturation 99.0 % (95.0-99.0) 01/17/17 04:35 ABG O2 Content 11.1 (0.0-44) 01/17/17 04:35 POC ABG Base Excess -2 01/31/17 18:55 ABG Base Excess -2.3 mmol/L (-2.0-3.0) L 01/17/17 04:35 ABG Hemoglobin 7.9 gm/dl (14.0-18.0) L 01/17/17 04:35 ABG Carboxyhemoglobin 1.5 % (0.0-5.0) 01/17/17 04:35 ABG Methemoglobin 0.5 % (0.0-1.5) 01/17/17 04:35 VBG pH 7.284 (7.320-7.420) L 01/09/17 10:16 Oxyhemoglobin 97.1 % (95.0-99.0) 01/17/17 04:35 FiO2 25 % 01/31/17 18:55 Sodium 136 mmol/L (137-145) L 04/28/17 05:10 Potassium 4.5 mmol/L (3.6-5.0) 04/28/17 05:10 Chloride 95.2 mmol/L (98-107) L 04/28/17 05:10 Carbon Dioxide 27 mmol/L (22-30) 04/28/17 05:10 Anion Gap 18 mmol/L 04/28/17 05:10 BUN 42 mg/dL (9-20) H 04/28/17 05:10 Creatinine 0.9 mg/dL (0.8-1.5) 04/28/17 05:10 Estimated GFR > 60 ml/min 04/28/17 05:10 BUN/Creatinine Ratio 47 % 04/28/17 05:10 Glucose 63 mg/dL (75-100) L 04/28/17 05:10 POC Glucose 202 (70-105) H 06/12/17 05:48 Lactic Acid 0.80 mmol/L (0.7-2.0) 01/30/17 11:49 Calcium 9.1 mg/dL (8.4-10.2) 04/28/17 05:10 Phosphorus 3.10 mg/dL (2.5-4.5) 03/29/17 04:32 Magnesium 1.90 mg/dL (1.7-2.3) 03/29/17 04:32 Total Bilirubin 0.50 mg/dL (0.1-1.2) 04/28/17 05:10 AST 45 units/L (5-40) H 04/28/17 05:10 ALT 42 units/L (7-56) 04/28/17 05:10 Alkaline Phosphatase 271 units/L (35-129) H 04/28/17 05:10 Ammonia 35.0 umol/L (25-60) 01/09/17 10:16 Total Creatine Kinase 135 units/L (55-170) 01/09/17 10:16 CK-MB (CK-2) 7.1 ng/mL (0.0-4.0) H 01/09/17 10:16 CK-MB (CK-2) Rel Index 5.2 (0-4) H 01/09/17 10:16 Troponin T < 0.010 ng/mL (0.00-0.029) 01/09/17 10:16 NT-Pro-B Natriuret Pep 602.9 pg/mL (0-900) 01/09/17 10:16 Total Protein 8.9 g/dL (6.3-8.2) H 04/28/17 05:10 Albumin 2.5 g/dL (3.9-5) L 04/28/17 05:10 Albumin/Globulin Ratio 0.4 % 04/28/17 05:10 TSH 52.800 mlU/mL (0.270-4.200) H 01/09/17 10:16 Free T4 0.78 ng/dL (0.76-1.46) 01/09/17 10:16 Total Cortisol 54.8 mcg/dL () 01/09/17 16:19 Urine Color Yellow (Yellow) 01/28/17 17:52 Urine Turbidity Clear (Clear) 01/28/17 17:52 Urine pH 6.0 (5.0-7.0) 01/28/17 17:52 Ur Specific [place] 1.016 (1.003-1.030) 01/28/17 17:52 Urine Protein 100 mg/dl mg/dL (Negative) 01/28/17 17:52 Urine Glucose (UA) >=500 mg/dL (Negative) 01/28/17 17:52 Urine Ketones Neg mg/dL (Negative) 01/28/17 17:52 Urine Blood Sm (Negative) 01/28/17 17:52 Urine Nitrite Neg (Negative) 01/28/17 17:52 Urine Bilirubin Neg (Negative) 01/28/17 17:52 Urine Urobilinogen < 2.0 mg/dL (<2.0) 01/28/17 17:52 Ur Leukocyte Esterase Lg (Negative) 01/28/17 17:52 Urine WBC (Auto) > 182.0 /HPF (0.0-6.0) H 01/28/17 17:52 Urine RBC (Auto) 113.0 /HPF (0.0-6.0) 01/28/17 17:52 Urine Bacteria (Auto) 2+ /HPF (Negative) 01/28/17 17:52 Urine WBC Clumps 3+ /HPF 01/28/17 17:52 Urine Mucus Few /HPF 01/14/17 14:07 Urine Yeast (Bud[place]) 3+ /HPF 01/14/17 14:07 Salicylates < 0.3 mg/dL (2.8-20.0) L 01/09/17 10:16 Urine Opiates Screen Presumptive negative 01/09/17 10:23 Urine Methadone Screen Presumptive negative 01/09/17 10:23 Acetaminophen < 15.0 ug/mL (10.0-30.0) 01/09/17 10:16 Ur Barbiturates Screen Presumptive negative 01/09/17 10:23 Ur Phencyclidine Scrn Presumptive negative 01/09/17 10:23 Ur Amphetamines Screen Presumptive negative 01/09/17 10:23 U Benzodiazepines Scrn Presumptive negative 01/09/17 10:23 Urine Cocaine Screen Presumptive negative 01/09/17 10:23 U Marijuana (THC) Screen Presumptive negative 01/09/17 10:23 Drugs of Abuse Note Disclamer 01/09/17 10:23 Plasma/Serum Alcohol < 0.01 gm% (0-0.07) 01/09/17 10:16
[2017-06-13] MEDS: HEPARIN SUB-Q SCH ×2 (09:40→21:49)
[2017-06-13] MEDS: LEVEMIR (NF) SUB-Q SCH (09:41)
[2017-06-13] MEDS: PEPCID PO SCH ×2 (09:41→21:49)
--- NOTE | 2017-06-13 13:50 | Progress Note ---
Assessment and Plan Assessment and plan: 51 YO Male with CKD, HTN, DM presents to ED after found down and unresponsive by his neighbor, who subsequently called EMS. Upon arrival, patient found unresponsive on the floor with a serum glucose of 21, patient has a known history of alcohol abuse and delirium tremens. The patient was administered D5 approximate 500 mls during transport without change in mental status/level of consciousness. Pt seen and evaluated in ED was was found to be unable to protect his airway. Pt intubated and placed on vent support. Pt found to have evidence of hypothyroidism. He was started on Synthroid. He has since been in the ICU. director of student services try to locate family, even spoke to the family who he lives with. They themselves were unaware of any family members. After ethics committee meeting on the patient. The decision was made to make him DO NOT RESUSCITATE and to transfer him to hospice. Given his very poor prognosis and poor likelihood of recovery. It was decided that was not his best interest to get trach and PEG. Therefore he'll be transferred to the hospice intubated. Now Awaiting on court ordered /state guardianship. Hypoglycemic brain injury Persistent vegetative state Metabolic encephalopathy Hypoglycemia/hypothermia, resolved Acute respiratory failure mechanical ventilator greater than 96 hours UTI with klebsiella, treated ( Cx + on 01/28), then with ESBL likely colonization hyponatremia, Hypothyroidism IDDM Hypertension low grade Fever, resolved - Cont supportive care and current medication. Monitor vitals, repeat cx on - no growth - increased dose of long acting insulin to 15 unit - Patient is DNR- needs guardianship from the state to give consent for further management, as has no family to give consent. 06/07/17: Resumed care, Febrile again, supportive care per Dr. Horta Guardianship has been obtained but no authority to withdraw care. Continue supportive care. History Interval history: Patient was seen and examined. Follow-up on current diagnosis. Imaging, nursing note, chart, labs and old chart reviewed. Patient remains intubated and unresponsive Hospitalist Physical - Physical exam Narrative exam: GEN: Severely fail contracted BMI 16.5, comatose HEENT: NCAT, NG tube and ET tube in place CVS/HEART: RRR, NORMAL S1S2, NO JVD, pulses present bilaterally CHEST/LUNGS: Symmetrical chest expansion, good air entry bilaterally GI/Abdomen: soft, ND, good bowel sounds, no guarding or rebound Neuro: comatose, doesn't follow commands Psych: Unresponsive - Constitutional Vitals: Temp Pulse Resp BP Pulse Ox 98.2 F 75 17 118/74 98 06/13/17 12:00 06/13/17 12:53 06/13/17 12:53 06/13/17 12:53 06/13/17 12:53 General appearance: Present: no acute distress Results - Labs CBC & Chem 7: 04/28/17 05:10 04/28/17 05:10 Labs: Laboratory Last Values WBC 9.3 K/mm3 (4.5-11.0) 04/28/17 05:10 RBC 3.48 M/mm3 (3.65-5.03) L 04/28/17 05:10 Hgb 8.8 gm/dl (11.8-15.2) L 04/28/17 05:10 Hct 26.7 % (35.5-45.6) L 04/28/17 05:10 MCV 77 fl (84-94) L 04/28/17 05:10 MCH 25 pg (28-32) L 04/28/17 05:10 MCHC 33 % (32-34) 04/28/17 05:10 RDW 17.0 % (13.2-15.2) H 04/28/17 05:10 Plt Count 515 K/mm3 (140-440) H 04/28/17 05:10 Lymph % (Auto) 18.4 % (13.4-35.0) 04/28/17 05:10 [place] % (Auto) 8.4 % (0.0-7.3) H 04/28/17 05:10 Eos % (Auto) 1.8 % (0.0-4.3) 04/28/17 05:10 Baso % (Auto) 0.8 % (0.0-1.8) 04/28/17 05:10 Lymph # 1.7 K/mm3 (1.2-5.4) 04/28/17 05:10 [place] # 0.8 K/mm3 (0.0-0.8) 04/28/17 05:10 Eos # 0.2 K/mm3 (0.0-0.4) 04/28/17 05:10 Baso # 0.1 K/mm3 (0.0-0.1) 04/28/17 05:10 Add Manual Diff Complete 01/10/17 04:30 Total Counted 100 01/10/17 04:30 Seg Neutrophils % 70.6 % (40.0-70.0) H 04/28/17 05:10 Seg Neuts % (Manual) 88.0 % (40.0-70.0) H 01/10/17 04:30 Band Neutrophils % 7.0 % 01/10/17 04:30 Lymphocytes % (Manual) 4.0 % (13.4-35.0) L 01/10/17 04:30 Reactive Lymphs % (Man) 0 % 01/10/17 04:30 Monocytes % (Manual) 1.0 % (0.0-7.3) 01/10/17 04:30 Eosinophils % (Manual) 0 % (0.0-4.3) 01/10/17 04:30 Basophils % (Manual) 0 % (0.0-1.8) 01/10/17 04:30 Metamyelocytes % 0 % 01/10/17 04:30 Myelocytes % 0 % 01/10/17 04:30 Promyelocytes % 0 % 01/10/17 04:30 Blast Cells % 0 % 01/10/17 04:30 Nucleated RBC % Not Reportable 01/10/17 04:30 Seg Neutrophils # 6.6 K/mm3 (1.8-7.7) 04/28/17 05:10 Seg Neutrophils # Man 21.2 K/mm3 (1.8-7.7) H 01/10/17 04:30 Band Neutrophils # 1.7 K/mm3 01/10/17 04:30 Lymphocytes # (Manual) 1.0 K/mm3 (1.2-5.4) L 01/10/17 04:30 Abs React Lymphs (Man) 0.0 K/mm3 01/10/17 04:30 Monocytes # (Manual) 0.2 K/mm3 (0.0-0.8) 01/10/17 04:30 Eosinophils # (Manual) 0.0 K/mm3 (0.0-0.4) 01/10/17 04:30 Basophils # (Manual) 0.0 K/mm3 (0.0-0.1) 01/10/17 04:30 Metamyelocytes # 0.0 K/mm3 01/10/17 04:30 Myelocytes # 0.0 K/mm3 01/10/17 04:30 Promyelocytes # 0.0 K/mm3 01/10/17 04:30 Blast Cells # 0.0 K/mm3 01/10/17 04:30 WBC Morphology Not Reportable 01/10/17 04:30 Hypersegmented Neuts Not Reportable 01/10/17 04:30 Hyposegmented Neuts Not Reportable 01/10/17 04:30 Hypogranular Neuts Not Reportable 01/10/17 04:30 Smudge Cells Not Reportable 01/10/17 04:30 Toxic Granulation Not Reportable 01/10/17 04:30 Toxic Vacuolation Not Reportable 01/10/17 04:30 Dohle Bodies Not Reportable 01/10/17 04:30 Pelger-Huet Anomaly Not Reportable 01/10/17 04:30 [place] Rods Not Reportable 01/10/17 04:30 Platelet Estimate Consistent w auto 01/10/17 04:30 Clumped Platelets Not Reportable 01/10/17 04:30 Plt Clumps, EDTA Not Reportable 01/10/17 04:30 Large Platelets Not Reportable 01/10/17 04:30 Giant Platelets Not Reportable 01/10/17 04:30 Platelet Satelliting Not Reportable 01/10/17 04:30 Plt Morphology Comment Not Reportable 01/10/17 04:30 RBC Morphology Not Reportable 01/10/17 04:30 Dimorphic RBCs Not Reportable 01/10/17 04:30 Polychromasia Not Reportable 01/10/17 04:30 Hypochromasia 1+ 01/10/17 04:30 Poikilocytosis Not Reportable 01/10/17 04:30 Anisocytosis Not Reportable 01/10/17 04:30 Microcytosis Not Reportable 01/10/17 04:30 Macrocytosis Not Reportable 01/10/17 04:30 Spherocytes Not Reportable 01/10/17 04:30 Pappenheimer Bodies Not Reportable 01/10/17 04:30 Sickle Cells Not Reportable 01/10/17 04:30 Target Cells Not Reportable 01/10/17 04:30 Tear Drop Cells Not Reportable 01/10/17 04:30 Ovalocytes Not Reportable 01/10/17 04:30 Helmet Cells Not Reportable 01/10/17 04:30 [place] Bodies Not Reportable 01/10/17 04:30 [place] Rings Not Reportable 01/10/17 04:30 Jessica Cells Not Reportable 01/10/17 04:30 Bite Cells Not Reportable 01/10/17 04:30 Crenated Cell Not Reportable 01/10/17 04:30 Elliptocytes Not Reportable 01/10/17 04:30 Acanthocytes (Spur) Not Reportable 01/10/17 04:30 Rouleaux Not Reportable 01/10/17 04:30 Hemoglobin C Crystals Not Reportable 01/10/17 04:30 Schistocytes Not Reportable 01/10/17 04:30 Malaria parasites Not Reportable 01/10/17 04:30 Kyle Bodies Not Reportable 01/10/17 04:30 Hem Pathologist Commnt No 01/10/17 04:30 PT 14.1 Sec. (12.2-14.9) 01/17/17 04:10 INR 1.04 (0.87-1.13) 01/17/17 04:10 APTT 36.6 Sec. (24.2-36.6) 01/17/17 04:10 POC ABG pH 7.442 (7.35-7.45) 01/31/17 18:55 ABG pH 7.420 pH Units (7.350-7.450) 01/17/17 04:35 POC ABG pCO2 32.8 (35-45) L 01/31/17 18:55 ABG pCO2 34.5 mm Hg 01/17/17 04:35 POC ABG pO2 82 (80-105) 01/31/17 18:55 ABG pO2 160.3 mm Hg (80.0-90.0) H 01/17/17 04:35 POC ABG HCO3 22.4 01/31/17 18:55 ABG HCO3 21.9 mmol/L (20.0-26.0) 01/17/17 04:35 POC ABG Total CO2 23 01/31/17 18:55 POC ABG O2 Sat 97 01/31/17 18:55 ABG O2 Saturation 99.0 % (95.0-99.0) 01/17/17 04:35 ABG O2 Content 11.1 (0.0-44) 01/17/17 04:35 POC ABG Base Excess -2 01/31/17 18:55 ABG Base Excess -2.3 mmol/L (-2.0-3.0) L 01/17/17 04:35 ABG Hemoglobin 7.9 gm/dl (14.0-18.0) L 01/17/17 04:35 ABG Carboxyhemoglobin 1.5 % (0.0-5.0) 01/17/17 04:35 ABG Methemoglobin 0.5 % (0.0-1.5) 01/17/17 04:35 VBG pH 7.284 (7.320-7.420) L 01/09/17 10:16 Oxyhemoglobin 97.1 % (95.0-99.0) 01/17/17 04:35 FiO2 25 % 01/31/17 18:55 Sodium 136 mmol/L (137-145) L 04/28/17 05:10 Potassium 4.5 mmol/L (3.6-5.0) 04/28/17 05:10 Chloride 95.2 mmol/L (98-107) L 04/28/17 05:10 Carbon Dioxide 27 mmol/L (22-30) 04/28/17 05:10 Anion Gap 18 mmol/L 04/28/17 05:10 BUN 42 mg/dL (9-20) H 04/28/17 05:10 Creatinine 0.9 mg/dL (0.8-1.5) 04/28/17 05:10 Estimated GFR > 60 ml/min 04/28/17 05:10 BUN/Creatinine Ratio 47 % 04/28/17 05:10 Glucose 63 mg/dL (75-100) L 04/28/17 05:10 POC Glucose 124 (70-105) H 06/13/17 05:30 Lactic Acid 0.80 mmol/L (0.7-2.0) 01/30/17 11:49 Calcium 9.1 mg/dL (8.4-10.2) 04/28/17 05:10 Phosphorus 3.10 mg/dL (2.5-4.5) 03/29/17 04:32 Magnesium 1.90 mg/dL (1.7-2.3) 03/29/17 04:32 Total Bilirubin 0.50 mg/dL (0.1-1.2) 04/28/17 05:10 AST 45 units/L (5-40) H 04/28/17 05:10 ALT 42 units/L (7-56) 04/28/17 05:10 Alkaline Phosphatase 271 units/L (35-129) H 04/28/17 05:10 Ammonia 35.0 umol/L (25-60) 01/09/17 10:16 Total Creatine Kinase 135 units/L (55-170) 01/09/17 10:16 CK-MB (CK-2) 7.1 ng/mL (0.0-4.0) H 01/09/17 10:16 CK-MB (CK-2) Rel Index 5.2 (0-4) H 01/09/17 10:16 Troponin T < 0.010 ng/mL (0.00-0.029) 01/09/17 10:16 NT-Pro-B Natriuret Pep 602.9 pg/mL (0-900) 01/09/17 10:16 Total Protein 8.9 g/dL (6.3-8.2) H 04/28/17 05:10 Albumin 2.5 g/dL (3.9-5) L 04/28/17 05:10 Albumin/Globulin Ratio 0.4 % 04/28/17 05:10 TSH 52.800 mlU/mL (0.270-4.200) H 01/09/17 10:16 Free T4 0.78 ng/dL (0.76-1.46) 01/09/17 10:16 Total Cortisol 54.8 mcg/dL () 01/09/17 16:19 Urine Color Yellow (Yellow) 01/28/17 17:52 Urine Turbidity Clear (Clear) 01/28/17 17:52 Urine pH 6.0 (5.0-7.0) 01/28/17 17:52 Ur Specific [place] 1.016 (1.003-1.030) 01/28/17 17:52 Urine Protein 100 mg/dl mg/dL (Negative) 01/28/17 17:52 Urine Glucose (UA) >=500 mg/dL (Negative) 01/28/17 17:52 Urine Ketones Neg mg/dL (Negative) 01/28/17 17:52 Urine Blood Sm (Negative) 01/28/17 17:52 Urine Nitrite Neg (Negative) 01/28/17 17:52 Urine Bilirubin Neg (Negative) 01/28/17 17:52 Urine Urobilinogen < 2.0 mg/dL (<2.0) 01/28/17 17:52 Ur Leukocyte Esterase Lg (Negative) 01/28/17 17:52 Urine WBC (Auto) > 182.0 /HPF (0.0-6.0) H 01/28/17 17:52 Urine RBC (Auto) 113.0 /HPF (0.0-6.0) 01/28/17 17:52 Urine Bacteria (Auto) 2+ /HPF (Negative) 01/28/17 17:52 Urine WBC Clumps 3+ /HPF 01/28/17 17:52 Urine Mucus Few /HPF 01/14/17 14:07 Urine Yeast (Budding) 3+ /HPF 01/14/17 14:07 Salicylates < 0.3 mg/dL (2.8-20.0) L 01/09/17 10:16 Urine Opiates Screen Presumptive negative 01/09/17 10:23 Urine Methadone Screen Presumptive negative 01/09/17 10:23 Acetaminophen < 15.0 ug/mL (10.0-30.0) 01/09/17 10:16 Ur Barbiturates Screen Presumptive negative 01/09/17 10:23 Ur Phencyclidine Scrn Presumptive negative 01/09/17 10:23 Ur Amphetamines Screen Presumptive negative 01/09/17 10:23 U Benzodiazepines Scrn Presumptive negative 01/09/17 10:23 Urine Cocaine Screen Presumptive negative 01/09/17 10:23 U Marijuana (THC) Screen Presumptive negative 01/09/17 10:23 Drugs of Abuse Note Disclamer 01/09/17 10:23 Plasma/Serum Alcohol < 0.01 gm% (0-0.07) 01/09/17 10:16
[2017-06-13] MEDS: HumuLIN R SUB-Q SCH ×2 (13:57→21:48)
[2017-06-14] MEDS: LEVEMIR (NF) SUB-Q SCH (12:33)
[2017-06-14] MEDS: HEPARIN SUB-Q SCH ×2 (12:33→21:54)
[2017-06-14] MEDS: PEPCID PO SCH ×2 (12:33→21:53)
[2017-06-14] MEDS: HumuLIN R SUB-Q SCH (21:54)
[2017-06-15] MEDS: HumuLIN R SUB-Q SCH (05:40)
[2017-06-15] MEDS: D50W (25GM) Syringe IV PRN (05:42)
[2017-06-15] MEDS: SIMPLE SYRUP FEEDTUBE PRN (05:45)
[2017-06-15] MEDS: HEPARIN SUB-Q SCH ×2 (09:04→21:30)
[2017-06-15] MEDS: PEPCID PO SCH ×2 (09:04→21:30)
[2017-06-15] MEDS: LEVEMIR (NF) SUB-Q SCH (09:04)
--- NOTE | 2017-06-15 10:54 | Progress Note ---
Assessment and Plan Assessment and plan: Hypoglycemic brain injury. Patient was found hypoglycemic. He is now in coma, vegetative state, Unresponsive Persistent vegetative state. Supportive care Metabolic encephalopathy due to hypoglycemia Hypoglycemia/hypothermia, resolved Acute respiratory failure. on ventilator. Hyponatremia. Now resolved. Hypothyroidism Diabetes mellitus type 2. Check fingerstick glucose q 6h. Continue Levemir subcut daily Hypertension. BP stable Leukocytosis due to UTI. UTI with ESBL. Disposition. Comfort care, no escalation of care; Poor prognosis Unable to locate family. Guardianship has been obtained but no authority to withdraw care. Continue supportive care. History Interval history: no new issues overnight 51 YO Male with CKD,HTN, DM presents to ED for evaluation. Pt unable to provide history. Pt history taken from ED staff, and medical records. Pt found down and unresponsive by his neighbor, who subsequently called EMS. Upon arrival, patient found unresponsive on the floor with a serum glucose of 21, and covered with ants with insulin syringes around him and a bottle of atenolol which still had many pills remaining, patient has a known history of alcohol abuse and delirium tremens. The patient was administered D5 approximate 500 mls during transport without change in mental status/level of consciousness. Pt seen and evaluated in ED was was found to be unable to protect his airway. Pt intubated and placed on vent support. Pt found to have evidence of hypothyroidism. He was started on Synthroid. He has since been in the ICU. The patient continued to deteriorate. He is in this grade 4 coma, brain imaging does not show any reversible cause. The patient remains in a persistent vegetative states. Sepsis has been ruled out. registered nurse surgical services try to locate family, even spoke to the family who he lives with. They themselves were unaware of any family members. After ethics committee meeting on the patient, the decision was made to make him DO NOT RESUSCITATE and to transfer him to hospice. Guardianship has been obtained but no authority to withdraw care. Continue supportative care. No new clinical change Hospitalist Physical - Constitutional Vitals: Temp Pulse Resp BP Pulse Ox 99.8 F H 72 12 107/76 89 06/15/17 06:00 06/15/17 08:00 06/15/17 08:00 06/15/17 08:00 06/15/17 08:00 General appearance: Present: no acute distress - EENT Eyes: Present: PERRL, EOM intact ENT: hearing intact, clear oral mucosa, dentition normal - Neck Neck: Present: supple, normal ROM - Respiratory Respiratory effort: normal Respiratory: bilateral: CTA - Cardiovascular Rhythm: regular Heart Sounds: Present: S1 & S2. Absent: gallop, rub - Extremities Extremities: no ischemia, No edema, Full ROM - Abdominal General gastrointestinal: soft, non-tender, non-distended, normal bowel sounds - Integumentary Integumentary: Present: clear, warm, dry - Neurologic Neurologic: CNII-XII intact, moves all extremities Results - Labs CBC & Chem 7: 04/28/17 05:10 04/28/17 05:10 Labs: Laboratory Last Values WBC 9.3 K/mm3 (4.5-11.0) 04/28/17 05:10 RBC 3.48 M/mm3 (3.65-5.03) L 04/28/17 05:10 Hgb 8.8 gm/dl (11.8-15.2) L 04/28/17 05:10 Hct 26.7 % (35.5-45.6) L 04/28/17 05:10 MCV 77 fl (84-94) L 04/28/17 05:10 MCH 25 pg (28-32) L 04/28/17 05:10 MCHC 33 % (32-34) 04/28/17 05:10 RDW 17.0 % (13.2-15.2) H 04/28/17 05:10 Plt Count 515 K/mm3 (140-440) H 04/28/17 05:10 Lymph % (Auto) 18.4 % (13.4-35.0) 04/28/17 05:10 [place] % (Auto) 8.4 % (0.0-7.3) H 04/28/17 05:10 Eos % (Auto) 1.8 % (0.0-4.3) 04/28/17 05:10 Baso % (Auto) 0.8 % (0.0-1.8) 04/28/17 05:10 Lymph # 1.7 K/mm3 (1.2-5.4) 04/28/17 05:10 [place] # 0.8 K/mm3 (0.0-0.8) 04/28/17 05:10 Eos # 0.2 K/mm3 (0.0-0.4) 04/28/17 05:10 Baso # 0.1 K/mm3 (0.0-0.1) 04/28/17 05:10 Add Manual Diff Complete 01/10/17 04:30 Total Counted 100 01/10/17 04:30 Seg Neutrophils % 70.6 % (40.0-70.0) H 04/28/17 05:10 Seg Neuts % (Manual) 88.0 % (40.0-70.0) H 01/10/17 04:30 Band Neutrophils % 7.0 % 01/10/17 04:30 Lymphocytes % (Manual) 4.0 % (13.4-35.0) L 01/10/17 04:30 Reactive Lymphs % (Man) 0 % 01/10/17 04:30 Monocytes % (Manual) 1.0 % (0.0-7.3) 01/10/17 04:30 Eosinophils % (Manual) 0 % (0.0-4.3) 01/10/17 04:30 Basophils % (Manual) 0 % (0.0-1.8) 01/10/17 04:30 Metamyelocytes % 0 % 01/10/17 04:30 Myelocytes % 0 % 01/10/17 04:30 Promyelocytes % 0 % 01/10/17 04:30 Blast Cells % 0 % 01/10/17 04:30 Nucleated RBC % Not Reportable 01/10/17 04:30 Seg Neutrophils # 6.6 K/mm3 (1.8-7.7) 04/28/17 05:10 Seg Neutrophils # Man 21.2 K/mm3 (1.8-7.7) H 01/10/17 04:30 Band Neutrophils # 1.7 K/mm3 01/10/17 04:30 Lymphocytes # (Manual) 1.0 K/mm3 (1.2-5.4) L 01/10/17 04:30 Abs React Lymphs (Man) 0.0 K/mm3 01/10/17 04:30 Monocytes # (Manual) 0.2 K/mm3 (0.0-0.8) 01/10/17 04:30 Eosinophils # (Manual) 0.0 K/mm3 (0.0-0.4) 01/10/17 04:30 Basophils # (Manual) 0.0 K/mm3 (0.0-0.1) 01/10/17 04:30 Metamyelocytes # 0.0 K/mm3 01/10/17 04:30 Myelocytes # 0.0 K/mm3 01/10/17 04:30 Promyelocytes # 0.0 K/mm3 01/10/17 04:30 Blast Cells # 0.0 K/mm3 01/10/17 04:30 WBC Morphology Not Reportable 01/10/17 04:30 Hypersegmented Neuts Not Reportable 01/10/17 04:30 Hyposegmented Neuts Not Reportable 01/10/17 04:30 Hypogranular Neuts Not Reportable 01/10/17 04:30 Smudge Cells Not Reportable 01/10/17 04:30 Toxic Granulation Not Reportable 01/10/17 04:30 Toxic Vacuolation Not Reportable 01/10/17 04:30 Dohle Bodies Not Reportable 01/10/17 04:30 Pelger-Huet Anomaly Not Reportable 01/10/17 04:30 [place] Rods Not Reportable 01/10/17 04:30 Platelet Estimate Consistent w auto 01/10/17 04:30 Clumped Platelets Not Reportable 01/10/17 04:30 Plt Clumps, EDTA Not Reportable 01/10/17 04:30 Large Platelets Not Reportable 01/10/17 04:30 Giant Platelets Not Reportable 01/10/17 04:30 Platelet Satelliting Not Reportable 01/10/17 04:30 Plt Morphology Comment Not Reportable 01/10/17 04:30 RBC Morphology Not Reportable 01/10/17 04:30 Dimorphic RBCs Not Reportable 01/10/17 04:30 Polychromasia Not Reportable 01/10/17 04:30 Hypochromasia 1+ 01/10/17 04:30 Poikilocytosis Not Reportable 01/10/17 04:30 Anisocytosis Not Reportable 01/10/17 04:30 Microcytosis Not Reportable 01/10/17 04:30 Macrocytosis Not Reportable 01/10/17 04:30 Spherocytes Not Reportable 01/10/17 04:30 Pappenheimer Bodies Not Reportable 01/10/17 04:30 Sickle Cells Not Reportable 01/10/17 04:30 Target Cells Not Reportable 01/10/17 04:30 Tear Drop Cells Not Reportable 01/10/17 04:30 Ovalocytes Not Reportable 01/10/17 04:30 Helmet Cells Not Reportable 01/10/17 04:30 [place] Bodies Not Reportable 01/10/17 04:30 [place] Rings Not Reportable 01/10/17 04:30 [place] Cells Not Reportable 01/10/17 04:30 Bite Cells Not Reportable 01/10/17 04:30 Crenated Cell Not Reportable 01/10/17 04:30 Elliptocytes Not Reportable 01/10/17 04:30 Acanthocytes (Spur) Not Reportable 01/10/17 04:30 Rouleaux Not Reportable 01/10/17 04:30 Hemoglobin C Crystals Not Reportable 01/10/17 04:30 Schistocytes Not Reportable 01/10/17 04:30 Malaria parasites Not Reportable 01/10/17 04:30 [place] Bodies Not Reportable 01/10/17 04:30 Hem Pathologist Commnt No 01/10/17 04:30 PT 14.1 Sec. (12.2-14.9) 01/17/17 04:10 INR 1.04 (0.87-1.13) 01/17/17 04:10 APTT 36.6 Sec. (24.2-36.6) 01/17/17 04:10 POC ABG pH 7.442 (7.35-7.45) 01/31/17 18:55 ABG pH 7.420 pH Units (7.350-7.450) 01/17/17 04:35 POC ABG pCO2 32.8 (35-45) L 01/31/17 18:55 ABG pCO2 34.5 mm Hg 01/17/17 04:35 POC ABG pO2 82 (80-105) 01/31/17 18:55 ABG pO2 160.3 mm Hg (80.0-90.0) H 01/17/17 04:35 POC ABG HCO3 22.4 01/31/17 18:55 ABG HCO3 21.9 mmol/L (20.0-26.0) 01/17/17 04:35 POC ABG Total CO2 23 01/31/17 18:55 POC ABG O2 Sat 97 01/31/17 18:55 ABG O2 Saturation 99.0 % (95.0-99.0) 01/17/17 04:35 ABG O2 Content 11.1 (0.0-44) 01/17/17 04:35 POC ABG Base Excess -2 01/31/17 18:55 ABG Base Excess -2.3 mmol/L (-2.0-3.0) L 01/17/17 04:35 ABG Hemoglobin 7.9 gm/dl (14.0-18.0) L 01/17/17 04:35 ABG Carboxyhemoglobin 1.5 % (0.0-5.0) 01/17/17 04:35 ABG Methemoglobin 0.5 % (0.0-1.5) 01/17/17 04:35 VBG pH 7.284 (7.320-7.420) L 01/09/17 10:16 Oxyhemoglobin 97.1 % (95.0-99.0) 01/17/17 04:35 FiO2 25 % 01/31/17 18:55 Sodium 136 mmol/L (137-145) L 04/28/17 05:10 Potassium 4.5 mmol/L (3.6-5.0) 04/28/17 05:10 Chloride 95.2 mmol/L (98-107) L 04/28/17 05:10 Carbon Dioxide 27 mmol/L (22-30) 04/28/17 05:10 Anion Gap 18 mmol/L 04/28/17 05:10 BUN 42 mg/dL (9-20) H 04/28/17 05:10 Creatinine 0.9 mg/dL (0.8-1.5) 04/28/17 05:10 Estimated GFR > 60 ml/min 04/28/17 05:10 BUN/Creatinine Ratio 47 % 04/28/17 05:10 Glucose 63 mg/dL (75-100) L 04/28/17 05:10 POC Glucose 45 (70-105) L 06/15/17 05:36 Lactic Acid 0.80 mmol/L (0.7-2.0) 01/30/17 11:49 Calcium 9.1 mg/dL (8.4-10.2) 04/28/17 05:10 Phosphorus 3.10 mg/dL (2.5-4.5) 03/29/17 04:32 Magnesium 1.90 mg/dL (1.7-2.3) 03/29/17 04:32 Total Bilirubin 0.50 mg/dL (0.1-1.2) 04/28/17 05:10 AST 45 units/L (5-40) H 04/28/17 05:10 ALT 42 units/L (7-56) 04/28/17 05:10 Alkaline Phosphatase 271 units/L (35-129) H 04/28/17 05:10 Ammonia 35.0 umol/L (25-60) 01/09/17 10:16 Total Creatine Kinase 135 units/L (55-170) 01/09/17 10:16 CK-MB (CK-2) 7.1 ng/mL (0.0-4.0) H 01/09/17 10:16 CK-MB (CK-2) Rel Index 5.2 (0-4) H 01/09/17 10:16 Troponin T < 0.010 ng/mL (0.00-0.029) 01/09/17 10:16 NT-Pro-B Natriuret Pep 602.9 pg/mL (0-900) 01/09/17 10:16 Total Protein 8.9 g/dL (6.3-8.2) H 04/28/17 05:10 Albumin 2.5 g/dL (3.9-5) L 04/28/17 05:10 Albumin/Globulin Ratio 0.4 % 04/28/17 05:10 TSH 52.800 mlU/mL (0.270-4.200) H 01/09/17 10:16 Free T4 0.78 ng/dL (0.76-1.46) 01/09/17 10:16 Total Cortisol 54.8 mcg/dL () 01/09/17 16:19 Urine Color Yellow (Yellow) 01/28/17 17:52 Urine Turbidity Clear (Clear) 01/28/17 17:52 Urine pH 6.0 (5.0-7.0) 01/28/17 17:52 Ur Specific [place] 1.016 (1.003-1.030) 01/28/17 17:52 Urine Protein 100 mg/dl mg/dL (Negative) 01/28/17 17:52 Urine Glucose (UA) >=500 mg/dL (Negative) 01/28/17 17:52 Urine Ketones Neg mg/dL (Negative) 01/28/17 17:52 Urine Blood Sm (Negative) 01/28/17 17:52 Urine Nitrite Neg (Negative) 01/28/17 17:52 Urine Bilirubin Neg (Negative) 01/28/17 17:52 Urine Urobilinogen < 2.0 mg/dL (<2.0) 01/28/17 17:52 Ur Leukocyte Esterase Lg (Negative) 01/28/17 17:52 Urine WBC (Auto) > 182.0 /HPF (0.0-6.0) H 01/28/17 17:52 Urine RBC (Auto) 113.0 /HPF (0.0-6.0) 01/28/17 17:52 Urine Bacteria (Auto) 2+ /HPF (Negative) 01/28/17 17:52 Urine WBC Clumps 3+ /HPF 01/28/17 17:52 Urine Mucus Few /HPF 01/14/17 14:07 Urine Yeast (Bud[place]) 3+ /HPF 01/14/17 14:07 Salicylates < 0.3 mg/dL (2.8-20.0) L 01/09/17 10:16 Urine Opiates Screen Presumptive negative 01/09/17 10:23 Urine Methadone Screen Presumptive negative 01/09/17 10:23 Acetaminophen < 15.0 ug/mL (10.0-30.0) 01/09/17 10:16 Ur Barbiturates Screen Presumptive negative 01/09/17 10:23 Ur Phencyclidine Scrn Presumptive negative 01/09/17 10:23 Ur Amphetamines Screen Presumptive negative 01/09/17 10:23 U Benzodiazepines Scrn Presumptive negative 01/09/17 10:23 Urine Cocaine Screen Presumptive negative 01/09/17 10:23 U Marijuana (THC) Screen Presumptive negative 01/09/17 10:23 Drugs of Abuse Note Disclamer 01/09/17 10:23 Plasma/Serum Alcohol < 0.01 gm% (0-0.07) 01/09/17 10:16
[2017-06-16] MEDS: HumuLIN R SUB-Q SCH ×3 (00:29→22:15)
[2017-06-16] MEDS: HEPARIN SUB-Q SCH ×2 (09:30→22:16)
[2017-06-16] MEDS: PEPCID PO SCH ×2 (09:30→22:15)
[2017-06-16] MEDS: LEVEMIR (NF) SUB-Q SCH (09:30)
--- NOTE | 2017-06-16 11:12 | Progress Note ---
Assessment and Plan Assessment and plan: Hypoglycemic brain injury. Patient was found hypoglycemic. He is now in coma, vegetative state, Unresponsive Persistent vegetative state. Supportive care Metabolic encephalopathy due to hypoglycemia Hypoglycemia/hypothermia, resolved Acute respiratory failure. on ventilator. Hyponatremia. Now resolved. Hypothyroidism Diabetes mellitus type 2. Check fingerstick glucose q 6h. Continue Levemir subcut daily Hypertension. BP stable Leukocytosis due to UTI. UTI with ESBL. Disposition. Comfort care, no escalation of care; Poor prognosis Unable to locate family. Guardianship has been obtained but no authority to withdraw care. Continue supportive care. History Interval history: no new issues overnight 51 YO Male with CKD,HTN, DM presents to ED for evaluation. Pt unable to provide history. Pt history taken from ED staff, and medical records. Pt found down and unresponsive by his neighbor, who subsequently called EMS. Upon arrival, patient found unresponsive on the floor with a serum glucose of 21, and covered with ants with insulin syringes around him and a bottle of atenolol which still had many pills remaining, patient has a known history of alcohol abuse and delirium tremens. The patient was administered D5 approximate 500 mls during transport without change in mental status/level of consciousness. Pt seen and evaluated in ED was was found to be unable to protect his airway. Pt intubated and placed on vent support. Pt found to have evidence of hypothyroidism. He was started on Synthroid. He has since been in the ICU. The patient continued to deteriorate. He is in this grade 4 coma, brain imaging does not show any reversible cause. The patient remains in a persistent vegetative states. Sepsis has been ruled out. protective services social worker try to locate family, even spoke to the family who he lives with. They themselves were unaware of any family members. After ethics committee meeting on the patient, the decision was made to make him DO NOT RESUSCITATE and to transfer him to hospice. Guardianship has been obtained but no authority to withdraw care. Continue supportative care. No new clinical change Hospitalist Physical - Constitutional Vitals: Temp Pulse Resp BP Pulse Ox 100.2 F H 82 23 103/71 99 06/16/17 06:00 06/16/17 08:46 06/16/17 08:46 06/16/17 08:46 06/16/17 08:46 General appearance: Present: no acute distress - EENT Eyes: Present: PERRL, EOM intact ENT: hearing intact, clear oral mucosa, dentition normal - Neck Neck: Present: supple, normal ROM - Respiratory Respiratory effort: normal Respiratory: bilateral: CTA - Cardiovascular Rhythm: regular Heart Sounds: Present: S1 & S2. Absent: gallop, rub - Extremities Extremities: no ischemia, No edema, Full ROM - Abdominal General gastrointestinal: soft, non-tender, non-distended, normal bowel sounds - Integumentary Integumentary: Present: clear, warm, dry - Neurologic Neurologic: CNII-XII intact, moves all extremities Results - Labs CBC & Chem 7: 04/28/17 05:10 04/28/17 05:10 Labs: Laboratory Last Values WBC 9.3 K/mm3 (4.5-11.0) 04/28/17 05:10 RBC 3.48 M/mm3 (3.65-5.03) L 04/28/17 05:10 Hgb 8.8 gm/dl (11.8-15.2) L 04/28/17 05:10 Hct 26.7 % (35.5-45.6) L 04/28/17 05:10 MCV 77 fl (84-94) L 04/28/17 05:10 MCH 25 pg (28-32) L 04/28/17 05:10 MCHC 33 % (32-34) 04/28/17 05:10 RDW 17.0 % (13.2-15.2) H 04/28/17 05:10 Plt Count 515 K/mm3 (140-440) H 04/28/17 05:10 Lymph % (Auto) 18.4 % (13.4-35.0) 04/28/17 05:10 [place] % (Auto) 8.4 % (0.0-7.3) H 04/28/17 05:10 Eos % (Auto) 1.8 % (0.0-4.3) 04/28/17 05:10 Baso % (Auto) 0.8 % (0.0-1.8) 04/28/17 05:10 Lymph # 1.7 K/mm3 (1.2-5.4) 04/28/17 05:10 [place] # 0.8 K/mm3 (0.0-0.8) 04/28/17 05:10 Eos # 0.2 K/mm3 (0.0-0.4) 04/28/17 05:10 Baso # 0.1 K/mm3 (0.0-0.1) 04/28/17 05:10 Add Manual Diff Complete 01/10/17 04:30 Total Counted 100 01/10/17 04:30 Seg Neutrophils % 70.6 % (40.0-70.0) H 04/28/17 05:10 Seg Neuts % (Manual) 88.0 % (40.0-70.0) H 01/10/17 04:30 Band Neutrophils % 7.0 % 01/10/17 04:30 Lymphocytes % (Manual) 4.0 % (13.4-35.0) L 01/10/17 04:30 Reactive Lymphs % (Man) 0 % 01/10/17 04:30 Monocytes % (Manual) 1.0 % (0.0-7.3) 01/10/17 04:30 Eosinophils % (Manual) 0 % (0.0-4.3) 01/10/17 04:30 Basophils % (Manual) 0 % (0.0-1.8) 01/10/17 04:30 Metamyelocytes % 0 % 01/10/17 04:30 Myelocytes % 0 % 01/10/17 04:30 Promyelocytes % 0 % 01/10/17 04:30 Blast Cells % 0 % 01/10/17 04:30 Nucleated RBC % Not Reportable 01/10/17 04:30 Seg Neutrophils # 6.6 K/mm3 (1.8-7.7) 04/28/17 05:10 Seg Neutrophils # Man 21.2 K/mm3 (1.8-7.7) H 01/10/17 04:30 Band Neutrophils # 1.7 K/mm3 01/10/17 04:30 Lymphocytes # (Manual) 1.0 K/mm3 (1.2-5.4) L 01/10/17 04:30 Abs React Lymphs (Man) 0.0 K/mm3 01/10/17 04:30 Monocytes # (Manual) 0.2 K/mm3 (0.0-0.8) 01/10/17 04:30 Eosinophils # (Manual) 0.0 K/mm3 (0.0-0.4) 01/10/17 04:30 Basophils # (Manual) 0.0 K/mm3 (0.0-0.1) 01/10/17 04:30 Metamyelocytes # 0.0 K/mm3 01/10/17 04:30 Myelocytes # 0.0 K/mm3 01/10/17 04:30 Promyelocytes # 0.0 K/mm3 01/10/17 04:30 Blast Cells # 0.0 K/mm3 01/10/17 04:30 WBC Morphology Not Reportable 01/10/17 04:30 Hypersegmented Neuts Not Reportable 01/10/17 04:30 Hyposegmented Neuts Not Reportable 01/10/17 04:30 Hypogranular Neuts Not Reportable 01/10/17 04:30 Smudge Cells Not Reportable 01/10/17 04:30 Toxic Granulation Not Reportable 01/10/17 04:30 Toxic Vacuolation Not Reportable 01/10/17 04:30 Dohle Bodies Not Reportable 01/10/17 04:30 Pelger-Huet Anomaly Not Reportable 01/10/17 04:30 [place] Rods Not Reportable 01/10/17 04:30 Platelet Estimate Consistent w auto 01/10/17 04:30 Clumped Platelets Not Reportable 01/10/17 04:30 Plt Clumps, EDTA Not Reportable 01/10/17 04:30 Large Platelets Not Reportable 01/10/17 04:30 Giant Platelets Not Reportable 01/10/17 04:30 Platelet Satelliting Not Reportable 01/10/17 04:30 Plt Morphology Comment Not Reportable 01/10/17 04:30 RBC Morphology Not Reportable 01/10/17 04:30 Dimorphic RBCs Not Reportable 01/10/17 04:30 Polychromasia Not Reportable 01/10/17 04:30 Hypochromasia 1+ 01/10/17 04:30 Poikilocytosis Not Reportable 01/10/17 04:30 Anisocytosis Not Reportable 01/10/17 04:30 Microcytosis Not Reportable 01/10/17 04:30 Macrocytosis Not Reportable 01/10/17 04:30 Spherocytes Not Reportable 01/10/17 04:30 Pappenheimer Bodies Not Reportable 01/10/17 04:30 Sickle Cells Not Reportable 01/10/17 04:30 Target Cells Not Reportable 01/10/17 04:30 Tear Drop Cells Not Reportable 01/10/17 04:30 Ovalocytes Not Reportable 01/10/17 04:30 Helmet Cells Not Reportable 01/10/17 04:30 [place] Bodies Not Reportable 01/10/17 04:30 [place] Rings Not Reportable 01/10/17 04:30 [place] Cells Not Reportable 01/10/17 04:30 Bite Cells Not Reportable 01/10/17 04:30 Crenated Cell Not Reportable 01/10/17 04:30 Elliptocytes Not Reportable 01/10/17 04:30 Acanthocytes (Spur) Not Reportable 01/10/17 04:30 Rouleaux Not Reportable 01/10/17 04:30 Hemoglobin C Crystals Not Reportable 01/10/17 04:30 Schistocytes Not Reportable 01/10/17 04:30 Malaria parasites Not Reportable 01/10/17 04:30 [place] Bodies Not Reportable 01/10/17 04:30 Hem Pathologist Commnt No 01/10/17 04:30 PT 14.1 Sec. (12.2-14.9) 01/17/17 04:10 INR 1.04 (0.87-1.13) 01/17/17 04:10 APTT 36.6 Sec. (24.2-36.6) 01/17/17 04:10 POC ABG pH 7.442 (7.35-7.45) 01/31/17 18:55 ABG pH 7.420 pH Units (7.350-7.450) 01/17/17 04:35 POC ABG pCO2 32.8 (35-45) L 01/31/17 18:55 ABG pCO2 34.5 mm Hg 01/17/17 04:35 POC ABG pO2 82 (80-105) 01/31/17 18:55 ABG pO2 160.3 mm Hg (80.0-90.0) H 01/17/17 04:35 POC ABG HCO3 22.4 01/31/17 18:55 ABG HCO3 21.9 mmol/L (20.0-26.0) 01/17/17 04:35 POC ABG Total CO2 23 01/31/17 18:55 POC ABG O2 Sat 97 01/31/17 18:55 ABG O2 Saturation 99.0 % (95.0-99.0) 01/17/17 04:35 ABG O2 Content 11.1 (0.0-44) 01/17/17 04:35 POC ABG Base Excess -2 01/31/17 18:55 ABG Base Excess -2.3 mmol/L (-2.0-3.0) L 01/17/17 04:35 ABG Hemoglobin 7.9 gm/dl (14.0-18.0) L 01/17/17 04:35 ABG Carboxyhemoglobin 1.5 % (0.0-5.0) 01/17/17 04:35 ABG Methemoglobin 0.5 % (0.0-1.5) 01/17/17 04:35 VBG pH 7.284 (7.320-7.420) L 01/09/17 10:16 Oxyhemoglobin 97.1 % (95.0-99.0) 01/17/17 04:35 FiO2 25 % 01/31/17 18:55 Sodium 136 mmol/L (137-145) L 04/28/17 05:10 Potassium 4.5 mmol/L (3.6-5.0) 04/28/17 05:10 Chloride 95.2 mmol/L (98-107) L 04/28/17 05:10 Carbon Dioxide 27 mmol/L (22-30) 04/28/17 05:10 Anion Gap 18 mmol/L 04/28/17 05:10 BUN 42 mg/dL (9-20) H 04/28/17 05:10 Creatinine 0.9 mg/dL (0.8-1.5) 04/28/17 05:10 Estimated GFR > 60 ml/min 04/28/17 05:10 BUN/Creatinine Ratio 47 % 04/28/17 05:10 Glucose 63 mg/dL (75-100) L 04/28/17 05:10 POC Glucose 103 (70-105) 06/16/17 05:30 Lactic Acid 0.80 mmol/L (0.7-2.0) 01/30/17 11:49 Calcium 9.1 mg/dL (8.4-10.2) 04/28/17 05:10 Phosphorus 3.10 mg/dL (2.5-4.5) 12/19/17 04:32 Magnesium 1.90 mg/dL (1.7-2.3) 03/29/17 04:32 Total Bilirubin 0.50 mg/dL (0.1-1.2) 04/28/17 05:10 AST 45 units/L (5-40) H 04/28/17 05:10 ALT 42 units/L (7-56) 04/28/17 05:10 Alkaline Phosphatase 271 units/L (35-129) H 04/28/17 05:10 Ammonia 35.0 umol/L (25-60) 01/09/17 10:16 Total Creatine Kinase 135 units/L (55-170) 01/09/17 10:16 CK-MB (CK-2) 7.1 ng/mL (0.0-4.0) H 01/09/17 10:16 CK-MB (CK-2) Rel Index 5.2 (0-4) H 01/09/17 10:16 Troponin T < 0.010 ng/mL (0.00-0.029) 01/09/17 10:16 NT-Pro-B Natriuret Pep 602.9 pg/mL (0-900) 01/09/17 10:16 Total Protein 8.9 g/dL (6.3-8.2) H 04/28/17 05:10 Albumin 2.5 g/dL (3.9-5) L 04/28/17 05:10 Albumin/Globulin Ratio 0.4 % 04/28/17 05:10 TSH 52.800 mlU/mL (0.270-4.200) H 01/09/17 10:16 Free T4 0.78 ng/dL (0.76-1.46) 01/09/17 10:16 Total Cortisol 54.8 mcg/dL () 01/09/17 16:19 Urine Color Yellow (Yellow) 01/28/17 17:52 Urine Turbidity Clear (Clear) 01/28/17 17:52 Urine pH 6.0 (5.0-7.0) 01/28/17 17:52 Ur Specific [place] 1.016 (1.003-1.030) 01/28/17 17:52 Urine Protein 100 mg/dl mg/dL (Negative) 01/28/17 17:52 Urine Glucose (UA) >=500 mg/dL (Negative) 01/28/17 17:52 Urine Ketones Neg mg/dL (Negative) 01/28/17 17:52 Urine Blood Sm (Negative) 01/28/17 17:52 Urine Nitrite Neg (Negative) 01/28/17 17:52 Urine Bilirubin Neg (Negative) 01/28/17 17:52 Urine Urobilinogen < 2.0 mg/dL (<2.0) 01/28/17 17:52 Ur Leukocyte Esterase Lg (Negative) 01/28/17 17:52 Urine WBC (Auto) > 182.0 /HPF (0.0-6.0) H 01/28/17 17:52 Urine RBC (Auto) 113.0 /HPF (0.0-6.0) 01/28/17 17:52 Urine Bacteria (Auto) 2+ /HPF (Negative) 01/28/17 17:52 Urine WBC Clumps 3+ /HPF 01/28/17 17:52 Urine Mucus Few /HPF 01/14/17 14:07 Urine Yeast (Budding) 3+ /HPF 01/14/17 14:07 Salicylates < 0.3 mg/dL (2.8-20.0) L 01/09/17 10:16 Urine Opiates Screen Presumptive negative 01/09/17 10:23 Urine Methadone Screen Presumptive negative 01/09/17 10:23 Acetaminophen < 15.0 ug/mL (10.0-30.0) 01/09/17 10:16 Ur Barbiturates Screen Presumptive negative 01/09/17 10:23 Ur Phencyclidine Scrn Presumptive negative 01/09/17 10:23 Ur Amphetamines Screen Presumptive negative 01/09/17 10:23 U Benzodiazepines Scrn Presumptive negative 01/09/17 10:23 Urine Cocaine Screen Presumptive negative 01/09/17 10:23 U Marijuana (THC) Screen Presumptive negative 01/09/17 10:23 Drugs of Abuse Note Disclamer 01/09/17 10:23 Plasma/Serum Alcohol < 0.01 gm% (0-0.07) 01/09/17 10:16
[2017-06-16] MEDS: IMODIUM PO PRN ×2 (11:13→22:15)
[2017-06-17] MEDS: HumuLIN R SUB-Q SCH ×3 (06:24→23:43)
[2017-06-17] MEDS: HEPARIN SUB-Q SCH ×2 (10:57→23:29)
[2017-06-17] MEDS: LEVEMIR (NF) SUB-Q SCH (10:57)
[2017-06-17] MEDS: PEPCID PO SCH ×2 (10:58→23:29)
--- NOTE | 2017-06-17 12:05 | Progress Note ---
Assessment and Plan 51 y/o male found down, concern for sepsis and now encephalopathic requiring mechanical ventilation. Unfortunately no new recommendations in this sad case. 1. continue supportive care 2. 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 I am aware that he is an AND but trach will not fix this problem and is not in my professional opinion the right thing to do for this patient. Most likely he will never be weaned from the vent and will remain in a persistent vegatative state. 3. Overall prognosis continues to be poor. 4. Will not check labs 5. Vitals should be qshift 6. This patient's possibility of awakening from this persistent vegatative is unlikely. The current status is that there has been paper work filed to obtain guardianship so that end of life decisions can be made. Supportive care is reasonable but checking daily labs and doing other invasive things to this patient I do not feel is morally and ethically appropriate. 7. Currently patient does not have IV access and is not requiring any medical therapy. Will not place another one at this time. 8. Per [place], went to court 05/03/17 for Guardianship. One has been appointed, awaiting to meet them. Per report, they agree with hospice care, but do not have the authority vs will not authorize withdrawal once at hospice. Subjective Date of service: 06/17/17 Principal diagnosis: Acute respiratory failure,encephalopathy Interval history: No acute events. Mental state is unchanged. No family present Objective Vital Signs - 12hr 06/17/17 06/17/17 06/17/17 00:28 02:00 04:00 Temperature 98.3 F 98.8 F Pulse Rate 63 63 Respiratory 12 12 Rate Blood Pressure 102/66 101/66 O2 Sat by Pulse 100 100 Oximetry 06/17/17 06/17/17 06/17/17 04:21 06:00 07:53 Temperature 98.4 F Pulse Rate 63 64 64 Respiratory 10 L Rate Blood Pressure 101/66 99/60 97/61 O2 Sat by Pulse 100 100 100 Oximetry 06/17/17 11:51 Temperature Pulse Rate 91 H Respiratory Rate Blood Pressure 99/57 O2 Sat by Pulse 100 Oximetry Constitutional: no acute distress, other (on vent) Eyes: non-icteric ENT: oropharynx moist, other (ETT in position) Neck: supple Effort: normal Ascultation: Bilateral: clear, diminished breath sounds Cardiovascular: regular rate and rhythm (no mrg) Gastrointestinal: normoactive bowel sounds, soft, non-tender, non-distended Integumentary: normal Extremities: no cyanosis, no edema, pink and warm Neurologic: pupils equal and round, other (opens eyes spontaneously, but no meaningful responce to stimuli) Psychiatric: other (unable to obtain) CBC and BMP: 04/28/17 05:10 04/28/17 05:10 ABG, PT/INR, D-dimer: ABG POC ABG pH 7.442 (7.35-7.45) 01/31/17 18:55 ABG pH 7.420 pH Units (7.350-7.450) 01/17/17 04:35 POC ABG pCO2 32.8 (35-45) L 01/31/17 18:55 ABG pCO2 34.5 mm Hg 01/17/17 04:35 POC ABG pO2 82 (80-105) 01/31/17 18:55 ABG pO2 160.3 mm Hg (80.0-90.0) H 01/17/17 04:35 POC ABG HCO3 22.4 01/31/17 18:55 POC ABG Total CO2 23 01/31/17 18:55 POC ABG O2 Sat 97 01/31/17 18:55 ABG O2 Saturation 99.0 % (95.0-99.0) 01/17/17 04:35 PT/INR, D-dimer PT 14.1 Sec. (12.2-14.9) 01/17/17 04:10 INR 1.04 (0.87-1.13) 01/17/17 04:10 Abnormal lab findings: Abnormal Labs 01/09/17 01/09/17 01/09/17 10:16 10:16 10:16 WBC RBC Hgb 9.7 L Hct 28.4 L MCV 76 L MCH 26 L RDW 17.2 H Plt Count 448 H Lymph % (Auto) [place] % (Auto) Eos % (Auto) [place] # Seg Neutrophils % 79.5 H Seg Neuts % (Manual) Lymphocytes % (Manual) Seg Neutrophils # Seg Neutrophils # Man Lymphocytes # (Manual) APTT 39.6 H POC ABG pH ABG pH POC ABG pCO2 POC ABG pO2 ABG pO2 ABG HCO3 ABG Base Excess ABG Hemoglobin VBG pH Oxyhemoglobin Sodium 132 L Potassium Chloride 96.7 L Carbon Dioxide 21 L BUN 34 H Creatinine Glucose POC Glucose Lactic Acid Calcium 8.3 L AST ALT Alkaline Phosphatase 151 H CK-MB (CK-2) 7.1 H CK-MB (CK-2) Rel Index 5.2 H Total Protein Albumin 3.3 L TSH Urine WBC (Auto) Salicylates 01/09/17 01/09/17 01/09/17 10:16 10:16 10:16 WBC RBC Hgb Hct MCV MCH RDW Plt Count Lymph % (Auto) [place] % (Auto) Eos % (Auto) [place] # Seg Neutrophils % Seg Neuts % (Manual) Lymphocytes % (Manual) Seg Neutrophils # Seg Neutrophils # Man Lymphocytes # (Manual) APTT POC ABG pH ABG pH POC ABG pCO2 POC ABG pO2 ABG pO2 ABG HCO3 ABG Base Excess ABG Hemoglobin VBG pH 7.284 L Oxyhemoglobin Sodium Potassium Chloride Carbon Dioxide BUN Creatinine Glucose POC Glucose Lactic Acid Calcium AST ALT Alkaline Phosphatase CK-MB (CK-2) CK-MB (CK-2) Rel Index Total Protein Albumin TSH 52.800 H Urine WBC (Auto) Salicylates < 0.3 L 01/09/17 01/09/17 01/09/17 10:23 11:14 12:49 WBC RBC Hgb Hct MCV MCH RDW Plt Count Lymph % (Auto) [place] % (Auto) Eos % (Auto) [place] # Seg Neutrophils % Seg Neuts % (Manual) Lymphocytes % (Manual) Seg Neutrophils # Seg Neutrophils # Man Lymphocytes # (Manual) APTT POC ABG pH ABG pH POC ABG pCO2 POC ABG pO2 643 H ABG pO2 ABG HCO3 ABG Base Excess ABG Hemoglobin VBG pH Oxyhemoglobin Sodium Potassium Chloride Carbon Dioxide BUN Creatinine Glucose POC Glucose < 40 L Lactic Acid Calcium AST ALT Alkaline Phosphatase CK-MB (CK-2) CK-MB (CK-2) Rel Index Total Protein Albumin TSH Urine WBC (Auto) 61.0 H Salicylates 01/09/17 01/09/17 01/09/17 13:13 14:21 15:09 WBC RBC Hgb Hct MCV MCH RDW Plt Count Lymph % (Auto) [place] % (Auto) Eos % (Auto) [place] # Seg Neutrophils % Seg Neuts % (Manual) Lymphocytes % (Manual) Seg Neutrophils # Seg Neutrophils # Man Lymphocytes # (Manual) APTT POC ABG pH ABG pH POC ABG pCO2 POC ABG pO2 ABG pO2 ABG HCO3 ABG Base Excess ABG Hemoglobin VBG pH Oxyhemoglobin Sodium Potassium Chloride Carbon Dioxide BUN Creatinine Glucose POC Glucose 128 H 65 L 120 H Lactic Acid Calcium AST ALT Alkaline Phosphatase CK-MB (CK-2) CK-MB (CK-2) Rel Index Total Protein Albumin TSH Urine WBC (Auto) Salicylates 01/09/17 01/09/17 01/10/17 16:28 17:14 04:30 WBC 24.1 H RBC 3.38 L Hgb 8.5 L Hct 26.0 L MCV 77 L MCH 25 L RDW 17.9 H Plt Count 474 H Lymph % (Auto) [place] % (Auto) Eos % (Auto) [place] # Seg Neutrophils % Seg Neuts % (Manual) 88.0 H Lymphocytes % (Manual) 4.0 L Seg Neutrophils # Seg Neutrophils # Man 21.2 H Lymphocytes # (Manual) 1.0 L APTT POC ABG pH ABG pH POC ABG pCO2 POC ABG pO2 ABG pO2 ABG HCO3 ABG Base Excess ABG Hemoglobin VBG pH Oxyhemoglobin Sodium Potassium Chloride Carbon Dioxide BUN Creatinine Glucose POC Glucose 44 L 112 H Lactic Acid Calcium AST ALT Alkaline Phosphatase CK-MB (CK-2) CK-MB (CK-2) Rel Index Total Protein Albumin TSH Urine WBC (Auto) Salicylates 01/10/17 01/10/17 01/10/17 04:30 05:41 05:45 WBC RBC Hgb Hct MCV MCH RDW Plt Count Lymph % (Auto) [place] % (Auto) Eos % (Auto) [place] # Seg Neutrophils % Seg Neuts % (Manual) Lymphocytes % (Manual) Seg Neutrophils # Seg Neutrophils # Man Lymphocytes # (Manual) APTT POC ABG pH ABG pH POC ABG pCO2 26.6 L POC ABG pO2 207 H ABG pO2 ABG HCO3 ABG Base Excess ABG Hemoglobin VBG pH Oxyhemoglobin Sodium Potassium Chloride Carbon Dioxide 17 L BUN 27 H Creatinine Glucose POC Glucose 68 L Lactic Acid Calcium 7.5 L AST ALT Alkaline Phosphatase CK-MB (CK-2) CK-MB (CK-2) Rel Index Total Protein Albumin TSH Urine WBC (Auto) Salicylates 01/10/17 01/10/17 01/10/17 07:47 10:50 13:41 WBC RBC Hgb Hct MCV MCH RDW Plt Count Lymph % (Auto) [place] % (Auto) Eos % (Auto) [place] # Seg Neutrophils % Seg Neuts % (Manual) Lymphocytes % (Manual) Seg Neutrophils # Seg Neutrophils # Man Lymphocytes # (Manual) APTT POC ABG pH ABG pH POC ABG pCO2 POC ABG pO2 ABG pO2 ABG HCO3 ABG Base Excess ABG Hemoglobin VBG pH Oxyhemoglobin Sodium Potassium Chloride Carbon Dioxide BUN Creatinine Glucose POC Glucose 148 H 165 H 114 H Lactic Acid Calcium AST ALT Alkaline Phosphatase CK-MB (CK-2) CK-MB (CK-2) Rel Index Total Protein Albumin TSH Urine WBC (Auto) Salicylates 01/10/17 01/10/17 01/10/17 20:20 21:39 23:24 WBC RBC Hgb Hct MCV MCH RDW Plt Count Lymph % (Auto) [place] % (Auto) Eos % (Auto) [place] # Seg Neutrophils % Seg Neuts % (Manual) Lymphocytes % (Manual) Seg Neutrophils # Seg Neutrophils # Man Lymphocytes # (Manual) APTT POC ABG pH ABG pH POC ABG pCO2 POC ABG pO2 ABG pO2 ABG HCO3 ABG Base Excess ABG Hemoglobin VBG pH Oxyhemoglobin Sodium Potassium Chloride Carbon Dioxide BUN Creatinine Glucose POC Glucose 150 H 175 H 155 H Lactic Acid Calcium AST ALT Alkaline Phosphatase CK-MB (CK-2) CK-MB (CK-2) Rel Index Total Protein Albumin TSH Urine WBC (Auto) Salicylates 01/11/17 01/11/17 01/11/17 00:19 04:06 05:20 WBC 15.2 H RBC 3.40 L Hgb 8.9 L Hct 26.3 L MCV 78 L MCH 26 L RDW 18.6 H Plt Count 462 H Lymph % (Auto) 13.2 L [place] % (Auto) Eos % (Auto) [place] # Seg Neutrophils % 80.8 H Seg Neuts % (Manual) Lymphocytes % (Manual) Seg Neutrophils # 12.3 H Seg Neutrophils # Man Lymphocytes # (Manual) APTT POC ABG pH 7.463 H ABG pH POC ABG pCO2 26.2 L POC ABG pO2 185 H ABG pO2 ABG HCO3 ABG Base Excess ABG Hemoglobin VBG pH Oxyhemoglobin Sodium Potassium Chloride Carbon Dioxide BUN Creatinine Glucose POC Glucose 163 H Lactic Acid Calcium AST ALT Alkaline Phosphatase CK-MB (CK-2) CK-MB (CK-2) Rel Index Total Protein Albumin TSH Urine WBC (Auto) Salicylates 01/11/17 01/11/17 01/11/17 05:20 06:21 07:57 WBC RBC Hgb Hct MCV MCH RDW Plt Count Lymph % (Auto) [place] % (Auto) Eos % (Auto) [place] # Seg Neutrophils % Seg Neuts % (Manual) Lymphocytes % (Manual) Seg Neutrophils # Seg Neutrophils # Man Lymphocytes # (Manual) APTT POC ABG pH ABG pH POC ABG pCO2 POC ABG pO2 ABG pO2 ABG HCO3 ABG Base Excess ABG Hemoglobin VBG pH Oxyhemoglobin Sodium Potassium 3.4 L Chloride 111.5 H Carbon Dioxide 17 L BUN Creatinine Glucose 147 H POC Glucose 139 H 188 H Lactic Acid Calcium 8.0 L AST ALT Alkaline Phosphatase CK-MB (CK-2) CK-MB (CK-2) Rel Index Total Protein Albumin TSH Urine WBC (Auto) Salicylates 01/11/17 01/11/17 01/11/17 11:46 16:50 23:15 WBC RBC Hgb Hct MCV MCH RDW Plt Count Lymph % (Auto) [place] % (Auto) Eos % (Auto) [place] # Seg Neutrophils % Seg Neuts % (Manual) Lymphocytes % (Manual) Seg Neutrophils # Seg Neutrophils # Man Lymphocytes # (Manual) APTT POC ABG pH ABG pH POC ABG pCO2 POC ABG pO2 ABG pO2 ABG HCO3 ABG Base Excess ABG Hemoglobin VBG pH Oxyhemoglobin Sodium Potassium Chloride Carbon Dioxide BUN Creatinine Glucose POC Glucose 199 H 235 H 155 H Lactic Acid Calcium AST ALT Alkaline Phosphatase CK-MB (CK-2) CK-MB (CK-2) Rel Index Total Protein Albumin TSH Urine WBC (Auto) Salicylates 01/12/17 01/12/17 01/12/17 05:02 06:56 14:50 WBC RBC Hgb Hct MCV MCH RDW Plt Count Lymph % (Auto) [place] % (Auto) Eos % (Auto) [place] # Seg Neutrophils % Seg Neuts % (Manual) Lymphocytes % (Manual) Seg Neutrophils # Seg Neutrophils # Man Lymphocytes # (Manual) APTT POC ABG pH ABG pH POC ABG pCO2 28.0 L POC ABG pO2 178 H ABG pO2 ABG HCO3 ABG Base Excess ABG Hemoglobin VBG pH Oxyhemoglobin Sodium Potassium Chloride Carbon Dioxide BUN Creatinine Glucose POC Glucose 119 H 164 H Lactic Acid Calcium AST ALT Alkaline Phosphatase CK-MB (CK-2) CK-MB (CK-2) Rel Index Total Protein Albumin TSH Urine WBC (Auto) Salicylates 01/13/17 01/13/17 01/13/17 03:37 03:37 04:26 WBC RBC 3.61 L Hgb 9.3 L Hct 28.0 L MCV 78 L MCH 26 L RDW 18.2 H Plt Count Lymph % (Auto) [place] % (Auto) Eos % (Auto) [place] # Seg Neutrophils % Seg Neuts % (Manual) Lymphocytes % (Manual) Seg Neutrophils # Seg Neutrophils # Man Lymphocytes # (Manual) APTT POC ABG pH 7.485 H ABG pH POC ABG pCO2 25.4 L POC ABG pO2 73 L ABG pO2 ABG HCO3 ABG Base Excess ABG Hemoglobin VBG pH Oxyhemoglobin Sodium Potassium Chloride 112.4 H Carbon Dioxide 19 L BUN Creatinine Glucose 118 H POC Glucose Lactic Acid Calcium 8.0 L AST ALT Alkaline Phosphatase CK-MB (CK-2) CK-MB (CK-2) Rel Index Total Protein Albumin TSH Urine WBC (Auto) Salicylates 01/13/17 01/13/17 01/13/17 06:15 11:50 17:31 WBC RBC Hgb Hct MCV MCH RDW Plt Count Lymph % (Auto) [place] % (Auto) Eos % (Auto) [place] # Seg Neutrophils % Seg Neuts % (Manual) Lymphocytes % (Manual) Seg Neutrophils # Seg Neutrophils # Man Lymphocytes # (Manual) APTT POC ABG pH ABG pH POC ABG pCO2 POC ABG pO2 ABG pO2 ABG HCO3 ABG Base Excess ABG Hemoglobin VBG pH Oxyhemoglobin Sodium Potassium Chloride Carbon Dioxide BUN Creatinine Glucose POC Glucose 116 H 171 H 203 H Lactic Acid Calcium AST ALT Alkaline Phosphatase CK-MB (CK-2) CK-MB (CK-2) Rel Index Total Protein Albumin TSH Urine WBC (Auto) Salicylates 01/14/17 01/14/17 01/14/17 00:02 04:50 04:50 WBC RBC 3.32 L Hgb 8.5 L Hct 26.1 L MCV 79 L MCH 26 L RDW 18.2 H Plt Count Lymph % (Auto) [place] % (Auto) 9.0 H Eos % (Auto) [place] # Seg Neutrophils % Seg Neuts % (Manual) Lymphocytes % (Manual) Seg Neutrophils # Seg Neutrophils # Man Lymphocytes # (Manual) APTT POC ABG pH ABG pH POC ABG pCO2 POC ABG pO2 ABG pO2 ABG HCO3 ABG Base Excess ABG Hemoglobin VBG pH Oxyhemoglobin Sodium Potassium Chloride 112.5 H Carbon Dioxide BUN Creatinine Glucose 149 H POC Glucose 157 H Lactic Acid Calcium 8.1 L AST ALT Alkaline Phosphatase CK-MB (CK-2) CK-MB (CK-2) Rel Index Total Protein Albumin TSH Urine WBC (Auto) Salicylates 01/14/17 01/14/17 01/14/17 05:10 11:27 14:07 WBC RBC Hgb Hct MCV MCH RDW Plt Count Lymph % (Auto) [place] % (Auto) Eos % (Auto) [place] # Seg Neutrophils % Seg Neuts % (Manual) Lymphocytes % (Manual) Seg Neutrophils # Seg Neutrophils # Man Lymphocytes # (Manual) APTT POC ABG pH ABG pH POC ABG pCO2 POC ABG pO2 ABG pO2 ABG HCO3 ABG Base Excess ABG Hemoglobin VBG pH Oxyhemoglobin Sodium Potassium Chloride Carbon Dioxide BUN Creatinine Glucose POC Glucose 176 H 147 H Lactic Acid Calcium AST ALT Alkaline Phosphatase CK-MB (CK-2) CK-MB (CK-2) Rel Index Total Protein Albumin TSH Urine WBC (Auto) 53.0 H Salicylates 01/14/17 01/15/17 01/15/17 16:52 00:04 05:26 WBC RBC Hgb Hct MCV MCH RDW Plt Count Lymph % (Auto) [place] % (Auto) Eos % (Auto) [place] # Seg Neutrophils % Seg Neuts % (Manual) Lymphocytes % (Manual) Seg Neutrophils # Seg Neutrophils # Man Lymphocytes # (Manual) APTT POC ABG pH ABG pH POC ABG pCO2 POC ABG pO2 ABG pO2 ABG HCO3 ABG Base Excess ABG Hemoglobin VBG pH Oxyhemoglobin Sodium Potassium Chloride Carbon Dioxide BUN Creatinine Glucose POC Glucose 131 H 193 H 215 H Lactic Acid Calcium AST ALT Alkaline Phosphatase CK-MB (CK-2) CK-MB (CK-2) Rel Index Total Protein Albumin TSH Urine WBC (Auto) Salicylates 01/15/17 01/15/17 01/15/17 11:49 17:47 21:33 WBC RBC Hgb Hct MCV MCH RDW Plt Count Lymph % (Auto) [place] % (Auto) Eos % (Auto) [place] # Seg Neutrophils % Seg Neuts % (Manual) Lymphocytes % (Manual) Seg Neutrophils # Seg Neutrophils # Man Lymphocytes # (Manual) APTT POC ABG pH ABG pH POC ABG pCO2 POC ABG pO2 ABG pO2 ABG HCO3 ABG Base Excess ABG Hemoglobin VBG pH Oxyhemoglobin Sodium Potassium Chloride Carbon Dioxide BUN Creatinine Glucose POC Glucose 121 H 211 H 275 H Lactic Acid Calcium AST ALT Alkaline Phosphatase CK-MB (CK-2) CK-MB (CK-2) Rel Index Total Protein Albumin TSH Urine WBC (Auto) Salicylates 01/16/17 01/16/17 01/16/17 04:30 05:28 13:45 WBC RBC Hgb Hct MCV MCH RDW Plt Count Lymph % (Auto) [place] % (Auto) Eos % (Auto) [place] # Seg Neutrophils % Seg Neuts % (Manual) Lymphocytes % (Manual) Seg Neutrophils # Seg Neutrophils # Man Lymphocytes # (Manual) APTT POC ABG pH ABG pH 7.457 H POC ABG pCO2 POC ABG pO2 ABG pO2 55.1 L ABG HCO3 19.4 L ABG Base Excess -4.0 L ABG Hemoglobin 6.8 L VBG pH Oxyhemoglobin 94.9 L Sodium Potassium Chloride Carbon Dioxide BUN Creatinine Glucose POC Glucose 271 H 236 H Lactic Acid Calcium AST ALT Alkaline Phosphatase CK-MB (CK-2) CK-MB (CK-2) Rel Index Total Protein Albumin TSH Urine WBC (Auto) Salicylates 01/16/17 01/17/17 01/17/17 21:39 04:10 04:10 WBC 4.4 L RBC 2.98 L Hgb 7.7 L Hct 23.3 L MCV 78 L MCH 26 L RDW 18.1 H Plt Count Lymph % (Auto) [place] % (Auto) Eos % (Auto) [place] # Seg Neutrophils % Seg Neuts % (Manual) Lymphocytes % (Manual) Seg Neutrophils # Seg Neutrophils # Man Lymphocytes # (Manual) APTT POC ABG pH ABG pH POC ABG pCO2 POC ABG pO2 ABG pO2 ABG HCO3 ABG Base Excess ABG Hemoglobin VBG pH Oxyhemoglobin Sodium Potassium 3.3 L Chloride 108.7 H Carbon Dioxide 20 L BUN 8 L Creatinine Glucose 202 H POC Glucose 258 H Lactic Acid Calcium 7.6 L AST ALT Alkaline Phosphatase CK-MB (CK-2) CK-MB (CK-2) Rel Index Total Protein Albumin TSH Urine WBC (Auto) Salicylates 01/17/17 01/17/17 01/17/17 04:35 12:23 16:01 WBC RBC Hgb Hct MCV MCH RDW Plt Count Lymph % (Auto) [place] % (Auto) Eos % (Auto) [place] # Seg Neutrophils % Seg Neuts % (Manual) Lymphocytes % (Manual) Seg Neutrophils # Seg Neutrophils # Man Lymphocytes # (Manual) APTT POC ABG pH ABG pH POC ABG pCO2 POC ABG pO2 ABG pO2 160.3 H ABG HCO3 ABG Base Excess -2.3 L ABG Hemoglobin 7.9 L VBG pH Oxyhemoglobin Sodium Potassium Chloride Carbon Dioxide BUN Creatinine Glucose POC Glucose 321 H 239 H Lactic Acid Calcium AST ALT Alkaline Phosphatase CK-MB (CK-2) CK-MB (CK-2) Rel Index Total Protein Albumin TSH Urine WBC (Auto) Salicylates 01/18/17 01/18/17 01/18/17 05:07 12:09 17:54 WBC RBC Hgb Hct MCV MCH RDW Plt Count Lymph % (Auto) [place] % (Auto) Eos % (Auto) [place] # Seg Neutrophils % Seg Neuts % (Manual) Lymphocytes % (Manual) Seg Neutrophils # Seg Neutrophils # Man Lymphocytes # (Manual) APTT POC ABG pH ABG pH POC ABG pCO2 POC ABG pO2 ABG pO2 ABG HCO3 ABG Base Excess ABG Hemoglobin VBG pH Oxyhemoglobin Sodium Potassium Chloride Carbon Dioxide BUN Creatinine Glucose POC Glucose 155 H 203 H 132 H Lactic Acid Calcium AST ALT Alkaline Phosphatase CK-MB (CK-2) CK-MB (CK-2) Rel Index Total Protein Albumin TSH Urine WBC (Auto) Salicylates 01/18/17 01/19/17 01/19/17 23:43 04:28 12:11 WBC RBC Hgb Hct MCV MCH RDW Plt Count Lymph % (Auto) [place] % (Auto) Eos % (Auto) [place] # Seg Neutrophils % Seg Neuts % (Manual) Lymphocytes % (Manual) Seg Neutrophils # Seg Neutrophils # Man Lymphocytes # (Manual) APTT POC ABG pH ABG pH POC ABG pCO2 POC ABG pO2 ABG pO2 ABG HCO3 ABG Base Excess ABG Hemoglobin VBG pH Oxyhemoglobin Sodium Potassium Chloride Carbon Dioxide BUN Creatinine Glucose POC Glucose 125 H 182 H 153 H Lactic Acid Calcium AST ALT Alkaline Phosphatase CK-MB (CK-2) CK-MB (CK-2) Rel Index Total Protein Albumin TSH Urine WBC (Auto) Salicylates 01/19/17 01/20/17 01/20/17 17:23 00:12 05:44 WBC RBC Hgb Hct MCV MCH RDW Plt Count Lymph % (Auto) [place] % (Auto) Eos % (Auto) [place] # Seg Neutrophils % Seg Neuts % (Manual) Lymphocytes % (Manual) Seg Neutrophils # Seg Neutrophils # Man Lymphocytes # (Manual) APTT POC ABG pH ABG pH POC ABG pCO2 POC ABG pO2 ABG pO2 ABG HCO3 ABG Base Excess ABG Hemoglobin VBG pH Oxyhemoglobin Sodium Potassium Chloride Carbon Dioxide BUN Creatinine Glucose POC Glucose 66 L 139 H 176 H Lactic Acid Calcium AST ALT Alkaline Phosphatase CK-MB (CK-2) CK-MB (CK-2) Rel Index Total Protein Albumin TSH Urine WBC (Auto) Salicylates 01/20/17 01/20/17 01/20/17 11:48 17:42 23:43 WBC RBC Hgb Hct MCV MCH RDW Plt Count Lymph % (Auto) [place] % (Auto) Eos % (Auto) [place] # Seg Neutrophils % Seg Neuts % (Manual) Lymphocytes % (Manual) Seg Neutrophils # Seg Neutrophils # Man Lymphocytes # (Manual) APTT POC ABG pH ABG pH POC ABG pCO2 POC ABG pO2 ABG pO2 ABG HCO3 ABG Base Excess ABG Hemoglobin VBG pH Oxyhemoglobin Sodium Potassium Chloride Carbon Dioxide BUN Creatinine Glucose POC Glucose 218 H 132 H 178 H Lactic Acid Calcium AST ALT Alkaline Phosphatase CK-MB (CK-2) CK-MB (CK-2) Rel Index Total Protein Albumin TSH Urine WBC (Auto) Salicylates 01/21/17 01/21/17 01/21/17 05:34 11:17 23:37 WBC RBC Hgb Hct MCV MCH RDW Plt Count Lymph % (Auto) [place] % (Auto) Eos % (Auto) [place] # Seg Neutrophils % Seg Neuts % (Manual) Lymphocytes % (Manual) Seg Neutrophils # Seg Neutrophils # Man Lymphocytes # (Manual) APTT POC ABG pH ABG pH POC ABG pCO2 POC ABG pO2 ABG pO2 ABG HCO3 ABG Base Excess ABG Hemoglobin VBG pH Oxyhemoglobin Sodium Potassium Chloride Carbon Dioxide BUN Creatinine Glucose POC Glucose 106 H 213 H 140 H Lactic Acid Calcium AST ALT Alkaline Phosphatase CK-MB (CK-2) CK-MB (CK-2) Rel Index Total Protein Albumin TSH Urine WBC (Auto) Salicylates 01/22/17 01/22/17 01/22/17 04:00 04:00 04:58 WBC RBC 3.26 L Hgb 8.3 L Hct 25.5 L MCV 78 L MCH 25 L RDW 17.9 H Plt Count Lymph % (Auto) [place] % (Auto) 7.9 H Eos % (Auto) 6.2 H [place] # Seg Neutrophils % Seg Neuts % (Manual) Lymphocytes % (Manual) Seg Neutrophils # Seg Neutrophils # Man Lymphocytes # (Manual) APTT POC ABG pH ABG pH POC ABG pCO2 POC ABG pO2 ABG pO2 ABG HCO3 ABG Base Excess ABG Hemoglobin VBG pH Oxyhemoglobin Sodium Potassium Chloride 95.5 L Carbon Dioxide 31 H D BUN Creatinine Glucose 134 H POC Glucose 146 H Lactic Acid Calcium AST 44 H ALT Alkaline Phosphatase 379 H CK-MB (CK-2) CK-MB (CK-2) Rel Index Total Protein Albumin 2.7 L TSH Urine WBC (Auto) Salicylates 01/22/17 01/22/17 01/22/17 12:12 18:12 23:39 WBC RBC Hgb Hct MCV MCH RDW Plt Count Lymph % (Auto) [place] % (Auto) Eos % (Auto) [place] # Seg Neutrophils % Seg Neuts % (Manual) Lymphocytes % (Manual) Seg Neutrophils # Seg Neutrophils # Man Lymphocytes # (Manual) APTT POC ABG pH ABG pH POC ABG pCO2 POC ABG pO2 ABG pO2 ABG HCO3 ABG Base Excess ABG Hemoglobin VBG pH Oxyhemoglobin Sodium Potassium Chloride Carbon Dioxide BUN Creatinine Glucose POC Glucose 255 H 182 H 134 H Lactic Acid Calcium AST ALT Alkaline Phosphatase CK-MB (CK-2) CK-MB (CK-2) Rel Index Total Protein Albumin TSH Urine WBC (Auto) Salicylates 01/23/17 01/23/17 01/23/17 04:43 12:12 17:36 WBC RBC Hgb Hct MCV MCH RDW Plt Count Lymph % (Auto) [place] % (Auto) Eos % (Auto) [place] # Seg Neutrophils % Seg Neuts % (Manual) Lymphocytes % (Manual) Seg Neutrophils # Seg Neutrophils # Man Lymphocytes # (Manual) APTT POC ABG pH ABG pH POC ABG pCO2 POC ABG pO2 ABG pO2 ABG HCO3 ABG Base Excess ABG Hemoglobin VBG pH Oxyhemoglobin Sodium Potassium Chloride Carbon Dioxide BUN Creatinine Glucose POC Glucose 218 H 128 H 156 H Lactic Acid Calcium AST ALT Alkaline Phosphatase CK-MB (CK-2) CK-MB (CK-2) Rel Index Total Protein Albumin TSH Urine WBC (Auto) Salicylates 01/24/17 01/24/17 01/24/17 00:08 05:16 11:40 WBC RBC Hgb Hct MCV MCH RDW Plt Count Lymph % (Auto) [place] % (Auto) Eos % (Auto) [place] # Seg Neutrophils % Seg Neuts % (Manual) Lymphocytes % (Manual) Seg Neutrophils # Seg Neutrophils # Man Lymphocytes # (Manual) APTT POC ABG pH ABG pH POC ABG pCO2 POC ABG pO2 ABG pO2 ABG HCO3 ABG Base Excess ABG Hemoglobin VBG pH Oxyhemoglobin Sodium Potassium Chloride Carbon Dioxide BUN Creatinine Glucose POC Glucose 129 H 169 H 187 H Lactic Acid Calcium AST ALT Alkaline Phosphatase CK-MB (CK-2) CK-MB (CK-2) Rel Index Total Protein Albumin TSH Urine WBC (Auto) Salicylates 01/24/17 01/24/17 01/25/17 17:43 23:23 04:56 WBC RBC Hgb Hct MCV MCH RDW Plt Count Lymph % (Auto) [place] % (Auto) Eos % (Auto) [place] # Seg Neutrophils % Seg Neuts % (Manual) Lymphocytes % (Manual) Seg Neutrophils # Seg Neutrophils # Man Lymphocytes # (Manual) APTT POC ABG pH ABG pH POC ABG pCO2 POC ABG pO2 ABG pO2 ABG HCO3 ABG Base Excess ABG Hemoglobin VBG pH Oxyhemoglobin Sodium Potassium Chloride Carbon Dioxide BUN Creatinine Glucose POC Glucose 215 H 222 H 210 H Lactic Acid Calcium AST ALT Alkaline Phosphatase CK-MB (CK-2) CK-MB (CK-2) Rel Index Total Protein Albumin TSH Urine WBC (Auto) Salicylates 01/25/17 01/25/17 01/26/17 11:52 17:37 00:02 WBC RBC Hgb Hct MCV MCH RDW Plt Count Lymph % (Auto) [place] % (Auto) Eos % (Auto) [place] # Seg Neutrophils % Seg Neuts % (Manual) Lymphocytes % (Manual) Seg Neutrophils # Seg Neutrophils # Man Lymphocytes # (Manual) APTT POC ABG pH ABG pH POC ABG pCO2 POC ABG pO2 ABG pO2 ABG HCO3 ABG Base Excess ABG Hemoglobin VBG pH Oxyhemoglobin Sodium Potassium Chloride Carbon Dioxide BUN Creatinine Glucose POC Glucose 284 H 218 H 192 H Lactic Acid Calcium AST ALT Alkaline Phosphatase CK-MB (CK-2) CK-MB (CK-2) Rel Index Total Protein Albumin TSH Urine WBC (Auto) Salicylates 01/26/17 01/26/17 01/26/17 05:33 12:17 17:50 WBC RBC Hgb Hct MCV MCH RDW Plt Count Lymph % (Auto) [place] % (Auto) Eos % (Auto) [place] # Seg Neutrophils % Seg Neuts % (Manual) Lymphocytes % (Manual) Seg Neutrophils # Seg Neutrophils # Man Lymphocytes # (Manual) APTT POC ABG pH ABG pH POC ABG pCO2 POC ABG pO2 ABG pO2 ABG HCO3 ABG Base Excess ABG Hemoglobin VBG pH Oxyhemoglobin Sodium Potassium Chloride Carbon Dioxide BUN Creatinine Glucose POC Glucose 199 H 227 H 229 H Lactic Acid Calcium AST ALT Alkaline Phosphatase CK-MB (CK-2) CK-MB (CK-2) Rel Index Total Protein Albumin TSH Urine WBC (Auto) Salicylates 01/26/17 01/27/17 01/27/17 23:57 05:31 11:42 WBC RBC Hgb Hct MCV MCH RDW Plt Count Lymph % (Auto) [place] % (Auto) Eos % (Auto) [place] # Seg Neutrophils % Seg Neuts % (Manual) Lymphocytes % (Manual) Seg Neutrophils # Seg Neutrophils # Man Lymphocytes # (Manual) APTT POC ABG pH ABG pH POC ABG pCO2 POC ABG pO2 ABG pO2 ABG HCO3 ABG Base Excess ABG Hemoglobin VBG pH Oxyhemoglobin Sodium Potassium Chloride Carbon Dioxide BUN Creatinine Glucose POC Glucose 186 H 285 H 260 H Lactic Acid Calcium AST ALT Alkaline Phosphatase CK-MB (CK-2) CK-MB (CK-2) Rel Index Total Protein Albumin TSH Urine WBC (Auto) Salicylates 01/27/17 01/27/17 01/27/17 17:47 23:58 Unknown WBC 12.1 H RBC 3.28 L Hgb 8.5 L Hct 25.5 L MCV 78 L MCH 26 L RDW 16.8 H Plt Count 601 H Lymph % (Auto) [place] % (Auto) Eos % (Auto) [place] # Seg Neutrophils % Seg Neuts % (Manual) Lymphocytes % (Manual) Seg Neutrophils # Seg Neutrophils # Man Lymphocytes # (Manual) APTT POC ABG pH ABG pH POC ABG pCO2 POC ABG pO2 ABG pO2 ABG HCO3 ABG Base Excess ABG Hemoglobin VBG pH Oxyhemoglobin Sodium Potassium Chloride Carbon Dioxide BUN Creatinine Glucose POC Glucose 329 H 225 H Lactic Acid Calcium AST ALT Alkaline Phosphatase CK-MB (CK-2) CK-MB (CK-2) Rel Index Total Protein Albumin TSH Urine WBC (Auto) Salicylates 01/27/17 01/28/17 01/28/17 Unknown 03:44 03:44 WBC RBC 3.14 L Hgb 8.2 L Hct 24.1 L MCV 77 L MCH 26 L RDW 16.9 H Plt Count 567 H Lymph % (Auto) [place] % (Auto) Eos % (Auto) [place] # Seg Neutrophils % Seg Neuts % (Manual) Lymphocytes % (Manual) Seg Neutrophils # Seg Neutrophils # Man Lymphocytes # (Manual) APTT POC ABG pH ABG pH POC ABG pCO2 POC ABG pO2 ABG pO2 ABG HCO3 ABG Base Excess ABG Hemoglobin VBG pH Oxyhemoglobin Sodium 128 L Potassium 5.4 H Chloride 87.5 L Carbon Dioxide BUN 44 H 42 H Creatinine Glucose 250 H 128 H POC Glucose Lactic Acid Calcium AST ALT Alkaline Phosphatase CK-MB (CK-2) CK-MB (CK-2) Rel Index Total Protein Albumin TSH Urine WBC (Auto) Salicylates 01/28/17 01/28/17 01/28/17 11:43 16:47 17:52 WBC RBC Hgb Hct MCV MCH RDW Plt Count Lymph % (Auto) [place] % (Auto) Eos % (Auto) [place] # Seg Neutrophils % Seg Neuts % (Manual) Lymphocytes % (Manual) Seg Neutrophils # Seg Neutrophils # Man Lymphocytes # (Manual) APTT POC ABG pH ABG pH POC ABG pCO2 POC ABG pO2 ABG pO2 ABG HCO3 ABG Base Excess ABG Hemoglobin VBG pH Oxyhemoglobin Sodium Potassium Chloride Carbon Dioxide BUN Creatinine Glucose POC Glucose 351 H 249 H Lactic Acid Calcium AST ALT Alkaline Phosphatase CK-MB (CK-2) CK-MB (CK-2) Rel Index Total Protein Albumin TSH Urine WBC (Auto) > 182.0 H Salicylates 01/29/17 01/29/17 01/29/17 05:25 05:25 09:32 WBC 13.6 H RBC 3.25 L Hgb 8.3 L Hct 25.1 L MCV 77 L MCH 26 L RDW 16.8 H Plt Count 514 H Lymph % (Auto) [place] % (Auto) Eos % (Auto) [place] # Seg Neutrophils % Seg Neuts % (Manual) Lymphocytes % (Manual) Seg Neutrophils # Seg Neutrophils # Man Lymphocytes # (Manual) APTT POC ABG pH ABG pH POC ABG pCO2 POC ABG pO2 ABG pO2 ABG HCO3 ABG Base Excess ABG Hemoglobin VBG pH Oxyhemoglobin Sodium Potassium Chloride 97.8 L Carbon Dioxide BUN 34 H Creatinine Glucose 222 H POC Glucose Lactic Acid 2.50 H* Calcium AST ALT Alkaline Phosphatase CK-MB (CK-2) CK-MB (CK-2) Rel Index Total Protein Albumin TSH Urine WBC (Auto) Salicylates 01/29/17 01/29/17 01/29/17 11:56 18:11 23:55 WBC RBC Hgb Hct MCV MCH RDW Plt Count Lymph % (Auto) [place] % (Auto) Eos % (Auto) [place] # Seg Neutrophils % Seg Neuts % (Manual) Lymphocytes % (Manual) Seg Neutrophils # Seg Neutrophils # Man Lymphocytes # (Manual) APTT POC ABG pH ABG pH POC ABG pCO2 POC ABG pO2 ABG pO2 ABG HCO3 ABG Base Excess ABG Hemoglobin VBG pH Oxyhemoglobin Sodium Potassium Chloride Carbon Dioxide BUN Creatinine Glucose POC Glucose 261 H 215 H 176 H Lactic Acid Calcium AST ALT Alkaline Phosphatase CK-MB (CK-2) CK-MB (CK-2) Rel Index Total Protein Albumin TSH Urine WBC (Auto) Salicylates 01/30/17 01/30/17 01/30/17 05:31 05:31 05:34 WBC 15.2 H RBC 3.09 L Hgb 7.9 L Hct 23.9 L MCV 77 L MCH 26 L RDW 16.9 H Plt Count 569 H Lymph % (Auto) [place] % (Auto) Eos % (Auto) [place] # Seg Neutrophils % Seg Neuts % (Manual) Lymphocytes % (Manual) Seg Neutrophils # Seg Neutrophils # Man Lymphocytes # (Manual) APTT POC ABG pH ABG pH POC ABG pCO2 POC ABG pO2 ABG pO2 ABG HCO3 ABG Base Excess ABG Hemoglobin VBG pH Oxyhemoglobin Sodium Potassium Chloride Carbon Dioxide BUN 24 H Creatinine Glucose 235 H POC Glucose 243 H Lactic Acid Calcium AST ALT Alkaline Phosphatase CK-MB (CK-2) CK-MB (CK-2) Rel Index Total Protein Albumin TSH Urine WBC (Auto) Salicylates 01/30/17 01/30/17 01/30/17 11:38 17:58 23:29 WBC RBC Hgb Hct MCV MCH RDW Plt Count Lymph % (Auto) [place] % (Auto) Eos % (Auto) [place] # Seg Neutrophils % Seg Neuts % (Manual) Lymphocytes % (Manual) Seg Neutrophils # Seg Neutrophils # Man Lymphocytes # (Manual) APTT POC ABG pH ABG pH POC ABG pCO2 POC ABG pO2 ABG pO2 ABG HCO3 ABG Base Excess ABG Hemoglobin VBG pH Oxyhemoglobin Sodium Potassium Chloride Carbon Dioxide BUN Creatinine Glucose POC Glucose 298 H 208 H 245 H Lactic Acid Calcium AST ALT Alkaline Phosphatase CK-MB (CK-2) CK-MB (CK-2) Rel Index Total Protein Albumin TSH Urine WBC (Auto) Salicylates 01/31/17 01/31/17 01/31/17 04:39 04:39 05:57 WBC 11.4 H RBC 3.22 L Hgb 8.2 L Hct 24.9 L MCV 78 L MCH 25 L RDW 17.2 H Plt Count 576 H Lymph % (Auto) [place] % (Auto) Eos % (Auto) [place] # Seg Neutrophils % Seg Neuts % (Manual) Lymphocytes % (Manual) Seg Neutrophils # Seg Neutrophils # Man Lymphocytes # (Manual) APTT POC ABG pH ABG pH POC ABG pCO2 POC ABG pO2 ABG pO2 ABG HCO3 ABG Base Excess ABG Hemoglobin VBG pH Oxyhemoglobin Sodium Potassium Chloride Carbon Dioxide BUN Creatinine 0.7 L Glucose 223 H POC Glucose 264 H Lactic Acid Calcium AST ALT Alkaline Phosphatase CK-MB (CK-2) CK-MB (CK-2) Rel Index Total Protein Albumin TSH Urine WBC (Auto) Salicylates 01/31/17 01/31/17 01/31/17 12:23 17:41 18:55 WBC RBC Hgb Hct MCV MCH RDW Plt Count Lymph % (Auto) [place] % (Auto) Eos % (Auto) [place] # Seg Neutrophils % Seg Neuts % (Manual) Lymphocytes % (Manual) Seg Neutrophils # Seg Neutrophils # Man Lymphocytes # (Manual) APTT POC ABG pH ABG pH POC ABG pCO2 32.8 L POC ABG pO2 ABG pO2 ABG HCO3 ABG Base Excess ABG Hemoglobin VBG pH Oxyhemoglobin Sodium Potassium Chloride Carbon Dioxide BUN Creatinine Glucose POC Glucose 252 H 208 H Lactic Acid Calcium AST ALT Alkaline Phosphatase CK-MB (CK-2) CK-MB (CK-2) Rel Index Total Protein Albumin TSH Urine WBC (Auto) Salicylates 01/31/17 02/01/17 02/01/17 22:59 03:38 03:38 WBC RBC 2.81 L Hgb 7.4 L Hct 22.1 L MCV 79 L MCH 27 L RDW 17.0 H Plt Count 540 H Lymph % (Auto) [place] % (Auto) Eos % (Auto) [place] # Seg Neutrophils % Seg Neuts % (Manual) Lymphocytes % (Manual) Seg Neutrophils # Seg Neutrophils # Man Lymphocytes # (Manual) APTT POC ABG pH ABG pH POC ABG pCO2 POC ABG pO2 ABG pO2 ABG HCO3 ABG Base Excess ABG Hemoglobin VBG pH Oxyhemoglobin Sodium Potassium Chloride Carbon Dioxide 21 L BUN Creatinine 0.7 L Glucose POC Glucose 40 L Lactic Acid Calcium AST ALT Alkaline Phosphatase CK-MB (CK-2) CK-MB (CK-2) Rel Index Total Protein Albumin TSH Urine WBC (Auto) Salicylates 02/01/17 02/01/17 02/01/17 05:17 12:19 16:44 WBC RBC Hgb Hct MCV MCH RDW Plt Count Lymph % (Auto) [place] % (Auto) Eos % (Auto) [place] # Seg Neutrophils % Seg Neuts % (Manual) Lymphocytes % (Manual) Seg Neutrophils # Seg Neutrophils # Man Lymphocytes # (Manual) APTT POC ABG pH ABG pH POC ABG pCO2 POC ABG pO2 ABG pO2 ABG HCO3 ABG Base Excess ABG Hemoglobin VBG pH Oxyhemoglobin Sodium Potassium Chloride Carbon Dioxide BUN Creatinine Glucose POC Glucose 140 H 213 H 172 H Lactic Acid Calcium AST ALT Alkaline Phosphatase CK-MB (CK-2) CK-MB (CK-2) Rel Index Total Protein Albumin TSH Urine WBC (Auto) Salicylates 02/01/17 02/02/17 02/02/17 23:59 05:14 11:24 WBC RBC Hgb Hct MCV MCH RDW Plt Count Lymph % (Auto) [place] % (Auto) Eos % (Auto) [place] # Seg Neutrophils % Seg Neuts % (Manual) Lymphocytes % (Manual) Seg Neutrophils # Seg Neutrophils # Man Lymphocytes # (Manual) APTT POC ABG pH ABG pH POC ABG pCO2 POC ABG pO2 ABG pO2 ABG HCO3 ABG Base Excess ABG Hemoglobin VBG pH Oxyhemoglobin Sodium Potassium Chloride Carbon Dioxide BUN Creatinine Glucose POC Glucose 181 H 194 H 209 H Lactic Acid Calcium AST ALT Alkaline Phosphatase CK-MB (CK-2) CK-MB (CK-2) Rel Index Total Protein Albumin TSH Urine WBC (Auto) Salicylates 02/02/17 02/02/17 02/02/17 11:46 11:46 17:47 WBC RBC 2.94 L Hgb 7.5 L Hct 23.0 L MCV 78 L MCH 25 L RDW 16.9 H Plt Count 520 H Lymph % (Auto) [place] % (Auto) Eos % (Auto) [place] # Seg Neutrophils % Seg Neuts % (Manual) Lymphocytes % (Manual) Seg Neutrophils # Seg Neutrophils # Man Lymphocytes # (Manual) APTT POC ABG pH ABG pH POC ABG pCO2 POC ABG pO2 ABG pO2 ABG HCO3 ABG Base Excess ABG Hemoglobin VBG pH Oxyhemoglobin Sodium Potassium Chloride Carbon Dioxide BUN Creatinine 0.6 L Glucose 189 H POC Glucose 147 H Lactic Acid Calcium 8.1 L AST ALT Alkaline Phosphatase CK-MB (CK-2) CK-MB (CK-2) Rel Index Total Protein Albumin TSH Urine WBC (Auto) Salicylates 02/02/17 02/03/17 02/03/17 23:32 05:53 11:19 WBC RBC Hgb Hct MCV MCH RDW Plt Count Lymph % (Auto) [place] % (Auto) Eos % (Auto) [place] # Seg Neutrophils % Seg Neuts % (Manual) Lymphocytes % (Manual) Seg Neutrophils # Seg Neutrophils # Man Lymphocytes # (Manual) APTT POC ABG pH ABG pH POC ABG pCO2 POC ABG pO2 ABG pO2 ABG HCO3 ABG Base Excess ABG Hemoglobin VBG pH Oxyhemoglobin Sodium Potassium Chloride Carbon Dioxide BUN Creatinine Glucose POC Glucose 176 H 224 H 228 H Lactic Acid Calcium AST ALT Alkaline Phosphatase CK-MB (CK-2) CK-MB (CK-2) Rel Index Total Protein Albumin TSH Urine WBC (Auto) Salicylates 10/02/03/17 02/04/17 16:59 23:38 05:45 WBC RBC Hgb Hct MCV MCH RDW Plt Count Lymph % (Auto) [place] % (Auto) Eos % (Auto) [place] # Seg Neutrophils % Seg Neuts % (Manual) Lymphocytes % (Manual) Seg Neutrophils # Seg Neutrophils # Man Lymphocytes # (Manual) APTT POC ABG pH ABG pH POC ABG pCO2 POC ABG pO2 ABG pO2 ABG HCO3 ABG Base Excess ABG Hemoglobin VBG pH Oxyhemoglobin Sodium Potassium Chloride Carbon Dioxide BUN Creatinine Glucose POC Glucose 189 H 191 H 251 H Lactic Acid Calcium AST ALT Alkaline Phosphatase CK-MB (CK-2) CK-MB (CK-2) Rel Index Total Protein Albumin TSH Urine WBC (Auto) Salicylates 02/04/17 02/04/17 02/05/17 11:20 17:20 00:17 WBC RBC Hgb Hct MCV MCH RDW Plt Count Lymph % (Auto) [place] % (Auto) Eos % (Auto) [place] # Seg Neutrophils % Seg Neuts % (Manual) Lymphocytes % (Manual) Seg Neutrophils # Seg Neutrophils # Man Lymphocytes # (Manual) APTT POC ABG pH ABG pH POC ABG pCO2 POC ABG pO2 ABG pO2 ABG HCO3 ABG Base Excess ABG Hemoglobin VBG pH Oxyhemoglobin Sodium Potassium Chloride Carbon Dioxide BUN Creatinine Glucose POC Glucose 243 H 163 H 200 H Lactic Acid Calcium AST ALT Alkaline Phosphatase CK-MB (CK-2) CK-MB (CK-2) Rel Index Total Protein Albumin TSH Urine WBC (Auto) Salicylates 02/05/17 02/05/17 02/05/17 05:38 12:38 16:29 WBC RBC Hgb Hct MCV MCH RDW Plt Count Lymph % (Auto) [place] % (Auto) Eos % (Auto) [place] # Seg Neutrophils % Seg Neuts % (Manual) Lymphocytes % (Manual) Seg Neutrophils # Seg Neutrophils # Man Lymphocytes # (Manual) APTT POC ABG pH ABG pH POC ABG pCO2 POC ABG pO2 ABG pO2 ABG HCO3 ABG Base Excess ABG Hemoglobin VBG pH Oxyhemoglobin Sodium Potassium Chloride Carbon Dioxide BUN Creatinine Glucose POC Glucose 248 H 241 H 257 H Lactic Acid Calcium AST ALT Alkaline Phosphatase CK-MB (CK-2) CK-MB (CK-2) Rel Index Total Protein Albumin TSH Urine WBC (Auto) Salicylates 02/05/17 02/06/17 02/06/17 23:56 05:30 11:50 WBC RBC Hgb Hct MCV MCH RDW Plt Count Lymph % (Auto) [place] % (Auto) Eos % (Auto) [place] # Seg Neutrophils % Seg Neuts % (Manual) Lymphocytes % (Manual) Seg Neutrophils # Seg Neutrophils # Man Lymphocytes # (Manual) APTT POC ABG pH ABG pH POC ABG pCO2 POC ABG pO2 ABG pO2 ABG HCO3 ABG Base Excess ABG Hemoglobin VBG pH Oxyhemoglobin Sodium Potassium Chloride Carbon Dioxide BUN Creatinine Glucose POC Glucose 258 H 120 H 254 H Lactic Acid Calcium AST ALT Alkaline Phosphatase CK-MB (CK-2) CK-MB (CK-2) Rel Index Total Protein Albumin TSH Urine WBC (Auto) Salicylates 02/06/17 02/06/17 02/07/17 17:11 23:50 05:22 WBC RBC Hgb Hct MCV MCH RDW Plt Count Lymph % (Auto) [place] % (Auto) Eos % (Auto) [place] # Seg Neutrophils % Seg Neuts % (Manual) Lymphocytes % (Manual) Seg Neutrophils # Seg Neutrophils # Man Lymphocytes # (Manual) APTT POC ABG pH ABG pH POC ABG pCO2 POC ABG pO2 ABG pO2 ABG HCO3 ABG Base Excess ABG Hemoglobin VBG pH Oxyhemoglobin Sodium Potassium Chloride Carbon Dioxide BUN Creatinine Glucose POC Glucose 149 H 240 H 258 H Lactic Acid Calcium AST ALT Alkaline Phosphatase CK-MB (CK-2) CK-MB (CK-2) Rel Index Total Protein Albumin TSH Urine WBC (Auto) Salicylates 02/07/17 02/07/17 02/07/17 11:15 18:33 23:59 WBC RBC Hgb Hct MCV MCH RDW Plt Count Lymph % (Auto) [place] % (Auto) Eos % (Auto) [place] # Seg Neutrophils % Seg Neuts % (Manual) Lymphocytes % (Manual) Seg Neutrophils # Seg Neutrophils # Man Lymphocytes # (Manual) APTT POC ABG pH ABG pH POC ABG pCO2 POC ABG pO2 ABG pO2 ABG HCO3 ABG Base Excess ABG Hemoglobin VBG pH Oxyhemoglobin Sodium Potassium Chloride Carbon Dioxide BUN Creatinine Glucose POC Glucose 239 H 176 H 186 H Lactic Acid Calcium AST ALT Alkaline Phosphatase CK-MB (CK-2) CK-MB (CK-2) Rel Index Total Protein Albumin TSH Urine WBC (Auto) Salicylates 02/08/17 02/08/17 02/08/17 06:15 11:55 16:55 WBC RBC Hgb Hct MCV MCH RDW Plt Count Lymph % (Auto) [place] % (Auto) Eos % (Auto) [place] # Seg Neutrophils % Seg Neuts % (Manual) Lymphocytes % (Manual) Seg Neutrophils # Seg Neutrophils # Man Lymphocytes # (Manual) APTT POC ABG pH ABG pH POC ABG pCO2 POC ABG pO2 ABG pO2 ABG HCO3 ABG Base Excess ABG Hemoglobin VBG pH Oxyhemoglobin Sodium Potassium Chloride Carbon Dioxide BUN Creatinine Glucose POC Glucose 195 H 129 H 246 H Lactic Acid Calcium AST ALT Alkaline Phosphatase CK-MB (CK-2) CK-MB (CK-2) Rel Index Total Protein Albumin TSH Urine WBC (Auto) Salicylates 02/08/17 02/09/17 02/09/17 23:51 05:51 07:24 WBC 14.7 H RBC 3.39 L Hgb 8.9 L Hct 26.4 L MCV 78 L MCH 26 L RDW 18.4 H Plt Count 670 H Lymph % (Auto) 11.8 L [place] % (Auto) Eos % (Auto) [place] # Seg Neutrophils % 81.2 H Seg Neuts % (Manual) Lymphocytes % (Manual) Seg Neutrophils # 11.9 H Seg Neutrophils # Man Lymphocytes # (Manual) APTT POC ABG pH ABG pH POC ABG pCO2 POC ABG pO2 ABG pO2 ABG HCO3 ABG Base Excess ABG Hemoglobin VBG pH Oxyhemoglobin Sodium Potassium Chloride Carbon Dioxide BUN Creatinine Glucose POC Glucose 262 H 295 H Lactic Acid Calcium AST ALT Alkaline Phosphatase CK-MB (CK-2) CK-MB (CK-2) Rel Index Total Protein Albumin TSH Urine WBC (Auto) Salicylates 02/09/17 02/09/17 02/09/17 07:24 12:08 18:39 WBC RBC Hgb Hct MCV MCH RDW Plt Count Lymph % (Auto) [place] % (Auto) Eos % (Auto) [place] # Seg Neutrophils % Seg Neuts % (Manual) Lymphocytes % (Manual) Seg Neutrophils # Seg Neutrophils # Man Lymphocytes # (Manual) APTT POC ABG pH ABG pH POC ABG pCO2 POC ABG pO2 ABG pO2 ABG HCO3 ABG Base Excess ABG Hemoglobin VBG pH Oxyhemoglobin Sodium Potassium Chloride 95.5 L Carbon Dioxide BUN 52 H Creatinine Glucose 277 H POC Glucose 236 H 151 H Lactic Acid Calcium AST ALT Alkaline Phosphatase CK-MB (CK-2) CK-MB (CK-2) Rel Index Total Protein Albumin TSH Urine WBC (Auto) Salicylates 02/10/17 02/10/17 02/10/17 00:01 05:44 11:21 WBC RBC Hgb Hct MCV MCH RDW Plt Count Lymph % (Auto) [place] % (Auto) Eos % (Auto) [place] # Seg Neutrophils % Seg Neuts % (Manual) Lymphocytes % (Manual) Seg Neutrophils # Seg Neutrophils # Man Lymphocytes # (Manual) APTT POC ABG pH ABG pH POC ABG pCO2 POC ABG pO2 ABG pO2 ABG HCO3 ABG Base Excess ABG Hemoglobin VBG pH Oxyhemoglobin Sodium Potassium Chloride Carbon Dioxide BUN Creatinine Glucose POC Glucose 210 H 201 H 233 H Lactic Acid Calcium AST ALT Alkaline Phosphatase CK-MB (CK-2) CK-MB (CK-2) Rel Index Total Protein Albumin TSH Urine WBC (Auto) Salicylates 02/10/17 02/10/17 02/11/17 17:29 23:56 05:24 WBC RBC Hgb Hct MCV MCH RDW Plt Count Lymph % (Auto) [place] % (Auto) Eos % (Auto) [place] # Seg Neutrophils % Seg Neuts % (Manual) Lymphocytes % (Manual) Seg Neutrophils # Seg Neutrophils # Man Lymphocytes # (Manual) APTT POC ABG pH ABG pH POC ABG pCO2 POC ABG pO2 ABG pO2 ABG HCO3 ABG Base Excess ABG Hemoglobin VBG pH Oxyhemoglobin Sodium Potassium Chloride Carbon Dioxide BUN Creatinine Glucose POC Glucose 167 H 191 H 135 H Lactic Acid Calcium AST ALT Alkaline Phosphatase CK-MB (CK-2) CK-MB (CK-2) Rel Index Total Protein Albumin TSH Urine WBC (Auto) Salicylates 02/11/17 02/11/17 02/11/17 12:25 17:03 23:59 WBC RBC Hgb Hct MCV MCH RDW Plt Count Lymph % (Auto) [place] % (Auto) Eos % (Auto) [place] # Seg Neutrophils % Seg Neuts % (Manual) Lymphocytes % (Manual) Seg Neutrophils # Seg Neutrophils # Man Lymphocytes # (Manual) APTT POC ABG pH ABG pH POC ABG pCO2 POC ABG pO2 ABG pO2 ABG HCO3 ABG Base Excess ABG Hemoglobin VBG pH Oxyhemoglobin Sodium Potassium Chloride Carbon Dioxide BUN Creatinine Glucose POC Glucose 275 H 172 H 215 H Lactic Acid Calcium AST ALT Alkaline Phosphatase CK-MB (CK-2) CK-MB (CK-2) Rel Index Total Protein Albumin TSH Urine WBC (Auto) Salicylates 02/12/17 02/12/17 02/12/17 05:39 11:33 17:55 WBC RBC Hgb Hct MCV MCH RDW Plt Count Lymph % (Auto) [place] % (Auto) Eos % (Auto) [place] # Seg Neutrophils % Seg Neuts % (Manual) Lymphocytes % (Manual) Seg Neutrophils # Seg Neutrophils # Man Lymphocytes # (Manual) APTT POC ABG pH ABG pH POC ABG pCO2 POC ABG pO2 ABG pO2 ABG HCO3 ABG Base Excess ABG Hemoglobin VBG pH Oxyhemoglobin Sodium Potassium Chloride Carbon Dioxide BUN Creatinine Glucose POC Glucose 261 H 217 H 172 H Lactic Acid Calcium AST ALT Alkaline Phosphatase CK-MB (CK-2) CK-MB (CK-2) Rel Index Total Protein Albumin TSH Urine WBC (Auto) Salicylates 02/13/17 02/13/17 02/13/17 00:25 06:46 11:26 WBC RBC Hgb Hct MCV MCH RDW Plt Count Lymph % (Auto) [place] % (Auto) Eos % (Auto) [place] # Seg Neutrophils % Seg Neuts % (Manual) Lymphocytes % (Manual) Seg Neutrophils # Seg Neutrophils # Man Lymphocytes # (Manual) APTT POC ABG pH ABG pH POC ABG pCO2 POC ABG pO2 ABG pO2 ABG HCO3 ABG Base Excess ABG Hemoglobin VBG pH Oxyhemoglobin Sodium Potassium Chloride Carbon Dioxide BUN Creatinine Glucose POC Glucose 207 H 219 H 231 H Lactic Acid Calcium AST ALT Alkaline Phosphatase CK-MB (CK-2) CK-MB (CK-2) Rel Index Total Protein Albumin TSH Urine WBC (Auto) Salicylates 02/13/17 02/13/17 02/14/17 17:12 23:44 05:44 WBC RBC Hgb Hct MCV MCH RDW Plt Count Lymph % (Auto) [place] % (Auto) Eos % (Auto) [place] # Seg Neutrophils % Seg Neuts % (Manual) Lymphocytes % (Manual) Seg Neutrophils # Seg Neutrophils # Man Lymphocytes # (Manual) APTT POC ABG pH ABG pH POC ABG pCO2 POC ABG pO2 ABG pO2 ABG HCO3 ABG Base Excess ABG Hemoglobin VBG pH Oxyhemoglobin Sodium Potassium Chloride Carbon Dioxide BUN Creatinine Glucose POC Glucose 190 H 256 H 184 H Lactic Acid Calcium AST ALT Alkaline Phosphatase CK-MB (CK-2) CK-MB (CK-2) Rel Index Total Protein Albumin TSH Urine WBC (Auto) Salicylates 02/14/17 02/14/17 02/14/17 12:21 17:57 23:18 WBC RBC Hgb Hct MCV MCH RDW Plt Count Lymph % (Auto) [place] % (Auto) Eos % (Auto) [place] # Seg Neutrophils % Seg Neuts % (Manual) Lymphocytes % (Manual) Seg Neutrophils # Seg Neutrophils # Man Lymphocytes # (Manual) APTT POC ABG pH ABG pH POC ABG pCO2 POC ABG pO2 ABG pO2 ABG HCO3 ABG Base Excess ABG Hemoglobin VBG pH Oxyhemoglobin Sodium Potassium Chloride Carbon Dioxide BUN Creatinine Glucose POC Glucose 233 H 155 H 165 H Lactic Acid Calcium AST ALT Alkaline Phosphatase CK-MB (CK-2) CK-MB (CK-2) Rel Index Total Protein Albumin TSH Urine WBC (Auto) Salicylates 02/15/17 02/15/17 02/15/17 05:33 11:45 17:20 WBC RBC Hgb Hct MCV MCH RDW Plt Count Lymph % (Auto) [place] % (Auto) Eos % (Auto) [place] # Seg Neutrophils % Seg Neuts % (Manual) Lymphocytes % (Manual) Seg Neutrophils # Seg Neutrophils # Man Lymphocytes # (Manual) APTT POC ABG pH ABG pH POC ABG pCO2 POC ABG pO2 ABG pO2 ABG HCO3 ABG Base Excess ABG Hemoglobin VBG pH Oxyhemoglobin Sodium Potassium Chloride Carbon Dioxide BUN Creatinine Glucose POC Glucose 239 H 130 H 189 H Lactic Acid Calcium AST ALT Alkaline Phosphatase CK-MB (CK-2) CK-MB (CK-2) Rel Index Total Protein Albumin TSH Urine WBC (Auto) Salicylates 02/16/17 02/16/17 02/16/17 00:14 05:09 12:31 WBC RBC Hgb Hct MCV MCH RDW Plt Count Lymph % (Auto) [place] % (Auto) Eos % (Auto) [place] # Seg Neutrophils % Seg Neuts % (Manual) Lymphocytes % (Manual) Seg Neutrophils # Seg Neutrophils # Man Lymphocytes # (Manual) APTT POC ABG pH ABG pH POC ABG pCO2 POC ABG pO2 ABG pO2 ABG HCO3 ABG Base Excess ABG Hemoglobin VBG pH Oxyhemoglobin Sodium Potassium Chloride Carbon Dioxide BUN Creatinine Glucose POC Glucose 197 H 226 H 178 H Lactic Acid Calcium AST ALT Alkaline Phosphatase CK-MB (CK-2) CK-MB (CK-2) Rel Index Total Protein Albumin TSH Urine WBC (Auto) Salicylates 02/16/17 02/16/17 02/17/17 16:35 23:49 05:37 WBC RBC Hgb Hct MCV MCH RDW Plt Count Lymph % (Auto) [place] % (Auto) Eos % (Auto) [place] # Seg Neutrophils % Seg Neuts % (Manual) Lymphocytes % (Manual) Seg Neutrophils # Seg Neutrophils # Man Lymphocytes # (Manual) APTT POC ABG pH ABG pH POC ABG pCO2 POC ABG pO2 ABG pO2 ABG HCO3 ABG Base Excess ABG Hemoglobin VBG pH Oxyhemoglobin Sodium Potassium Chloride Carbon Dioxide BUN Creatinine Glucose POC Glucose 174 H 62 L 153 H Lactic Acid Calcium AST ALT Alkaline Phosphatase CK-MB (CK-2) CK-MB (CK-2) Rel Index Total Protein Albumin TSH Urine WBC (Auto) Salicylates 02/17/17 02/17/17 02/17/17 11:39 17:02 22:24 WBC RBC Hgb Hct MCV MCH RDW Plt Count Lymph % (Auto) [place] % (Auto) Eos % (Auto) [place] # Seg Neutrophils % Seg Neuts % (Manual) Lymphocytes % (Manual) Seg Neutrophils # Seg Neutrophils # Man Lymphocytes # (Manual) APTT POC ABG pH ABG pH POC ABG pCO2 POC ABG pO2 ABG pO2 ABG HCO3 ABG Base Excess ABG Hemoglobin VBG pH Oxyhemoglobin Sodium Potassium Chloride Carbon Dioxide BUN Creatinine Glucose POC Glucose 231 H 112 H 116 H Lactic Acid Calcium AST ALT Alkaline Phosphatase CK-MB (CK-2) CK-MB (CK-2) Rel Index Total Protein Albumin TSH Urine WBC (Auto) Salicylates 02/18/17 02/19/17 02/19/17 15:34 05:09 07:57 WBC RBC Hgb Hct MCV MCH RDW Plt Count Lymph % (Auto) [place] % (Auto) Eos % (Auto) [place] # Seg Neutrophils % Seg Neuts % (Manual) Lymphocytes % (Manual) Seg Neutrophils # Seg Neutrophils # Man Lymphocytes # (Manual) APTT POC ABG pH ABG pH POC ABG pCO2 POC ABG pO2 ABG pO2 ABG HCO3 ABG Base Excess ABG Hemoglobin VBG pH Oxyhemoglobin Sodium Potassium Chloride Carbon Dioxide BUN Creatinine Glucose POC Glucose 215 H 218 H 283 H Lactic Acid Calcium AST ALT Alkaline Phosphatase CK-MB (CK-2) CK-MB (CK-2) Rel Index Total Protein Albumin TSH Urine WBC (Auto) Salicylates 02/19/17 02/19/17 02/20/17 14:49 22:10 05:10 WBC RBC Hgb Hct MCV MCH RDW Plt Count Lymph % (Auto) [place] % (Auto) Eos % (Auto) [place] # Seg Neutrophils % Seg Neuts % (Manual) Lymphocytes % (Manual) Seg Neutrophils # Seg Neutrophils # Man Lymphocytes # (Manual) APTT POC ABG pH ABG pH POC ABG pCO2 POC ABG pO2 ABG pO2 ABG HCO3 ABG Base Excess ABG Hemoglobin VBG pH Oxyhemoglobin Sodium Potassium Chloride Carbon Dioxide BUN Creatinine Glucose POC Glucose 290 H 169 H 209 H Lactic Acid Calcium AST ALT Alkaline Phosphatase CK-MB (CK-2) CK-MB (CK-2) Rel Index Total Protein Albumin TSH Urine WBC (Auto) Salicylates 02/20/17 02/20/17 02/21/17 15:05 21:52 02:00 WBC RBC Hgb Hct MCV MCH RDW Plt Count Lymph % (Auto) [place] % (Auto) Eos % (Auto) [place] # Seg Neutrophils % Seg Neuts % (Manual) Lymphocytes % (Manual) Seg Neutrophils # Seg Neutrophils # Man Lymphocytes # (Manual) APTT POC ABG pH ABG pH POC ABG pCO2 POC ABG pO2 ABG pO2 ABG HCO3 ABG Base Excess ABG Hemoglobin VBG pH Oxyhemoglobin Sodium Potassium Chloride Carbon Dioxide BUN Creatinine Glucose POC Glucose 172 H 209 H 216 H Lactic Acid Calcium AST ALT Alkaline Phosphatase CK-MB (CK-2) CK-MB (CK-2) Rel Index Total Protein Albumin TSH Urine WBC (Auto) Salicylates 02/21/17 02/21/17 02/21/17 04:54 14:43 17:47 WBC RBC Hgb Hct MCV MCH RDW Plt Count Lymph % (Auto) [place] % (Auto) Eos % (Auto) [place] # Seg Neutrophils % Seg Neuts % (Manual) Lymphocytes % (Manual) Seg Neutrophils # Seg Neutrophils # Man Lymphocytes # (Manual) APTT POC ABG pH ABG pH POC ABG pCO2 POC ABG pO2 ABG pO2 ABG HCO3 ABG Base Excess ABG Hemoglobin VBG pH Oxyhemoglobin Sodium Potassium Chloride Carbon Dioxide BUN Creatinine Glucose POC Glucose 227 H 290 H 220 H Lactic Acid Calcium AST ALT Alkaline Phosphatase CK-MB (CK-2) CK-MB (CK-2) Rel Index Total Protein Albumin TSH Urine WBC (Auto) Salicylates 02/21/17 02/22/17 02/22/17 22:02 04:52 15:25 WBC RBC Hgb Hct MCV MCH RDW Plt Count Lymph % (Auto) [place] % (Auto) Eos % (Auto) [place] # Seg Neutrophils % Seg Neuts % (Manual) Lymphocytes % (Manual) Seg Neutrophils # Seg Neutrophils # Man Lymphocytes # (Manual) APTT POC ABG pH ABG pH POC ABG pCO2 POC ABG pO2 ABG pO2 ABG HCO3 ABG Base Excess ABG Hemoglobin VBG pH Oxyhemoglobin Sodium Potassium Chloride Carbon Dioxide BUN Creatinine Glucose POC Glucose 246 H 212 H 236 H Lactic Acid Calcium AST ALT Alkaline Phosphatase CK-MB (CK-2) CK-MB (CK-2) Rel Index Total Protein Albumin TSH Urine WBC (Auto) Salicylates 02/22/17 02/23/17 02/23/17 21:33 06:04 10:00 WBC RBC Hgb Hct MCV MCH RDW Plt Count Lymph % (Auto) [place] % (Auto) Eos % (Auto) [place] # Seg Neutrophils % Seg Neuts % (Manual) Lymphocytes % (Manual) Seg Neutrophils # Seg Neutrophils # Man Lymphocytes # (Manual) APTT POC ABG pH ABG pH POC ABG pCO2 POC ABG pO2 ABG pO2 ABG HCO3 ABG Base Excess ABG Hemoglobin VBG pH Oxyhemoglobin Sodium Potassium Chloride Carbon Dioxide BUN Creatinine Glucose POC Glucose 255 H 208 H 174 H Lactic Acid Calcium AST ALT Alkaline Phosphatase CK-MB (CK-2) CK-MB (CK-2) Rel Index Total Protein Albumin TSH Urine WBC (Auto) Salicylates 02/23/17 02/23/17 02/23/17 12:52 17:15 21:51 WBC RBC Hgb Hct MCV MCH RDW Plt Count Lymph % (Auto) [place] % (Auto) Eos % (Auto) [place] # Seg Neutrophils % Seg Neuts % (Manual) Lymphocytes % (Manual) Seg Neutrophils # Seg Neutrophils # Man Lymphocytes # (Manual) APTT POC ABG pH ABG pH POC ABG pCO2 POC ABG pO2 ABG pO2 ABG HCO3 ABG Base Excess ABG Hemoglobin VBG pH Oxyhemoglobin Sodium Potassium Chloride Carbon Dioxide BUN Creatinine Glucose POC Glucose 203 H 269 H 205 H Lactic Acid Calcium AST ALT Alkaline Phosphatase CK-MB (CK-2) CK-MB (CK-2) Rel Index Total Protein Albumin TSH Urine WBC (Auto) Salicylates 02/24/17 02/24/17 02/24/17 10:23 17:45 21:24 WBC RBC Hgb Hct MCV MCH RDW Plt Count Lymph % (Auto) [place] % (Auto) Eos % (Auto) [place] # Seg Neutrophils % Seg Neuts % (Manual) Lymphocytes % (Manual) Seg Neutrophils # Seg Neutrophils # Man Lymphocytes # (Manual) APTT POC ABG pH ABG pH POC ABG pCO2 POC ABG pO2 ABG pO2 ABG HCO3 ABG Base Excess ABG Hemoglobin VBG pH Oxyhemoglobin Sodium Potassium Chloride Carbon Dioxide BUN Creatinine Glucose POC Glucose 280 H 239 H 254 H Lactic Acid Calcium AST ALT Alkaline Phosphatase CK-MB (CK-2) CK-MB (CK-2) Rel Index Total Protein Albumin TSH Urine WBC (Auto) Salicylates 02/25/17 02/25/17 02/25/17 02:12 05:17 14:32 WBC RBC Hgb Hct MCV MCH RDW Plt Count Lymph % (Auto) [place] % (Auto) Eos % (Auto) [place] # Seg Neutrophils % Seg Neuts % (Manual) Lymphocytes % (Manual) Seg Neutrophils # Seg Neutrophils # Man Lymphocytes # (Manual) APTT POC ABG pH ABG pH POC ABG pCO2 POC ABG pO2 ABG pO2 ABG HCO3 ABG Base Excess ABG Hemoglobin VBG pH Oxyhemoglobin Sodium Potassium Chloride Carbon Dioxide BUN Creatinine Glucose POC Glucose 296 H 332 H 353 H Lactic Acid Calcium AST ALT Alkaline Phosphatase CK-MB (CK-2) CK-MB (CK-2) Rel Index Total Protein Albumin TSH Urine WBC (Auto) Salicylates 02/25/17 02/26/17 02/26/17 22:14 00:37 05:52 WBC RBC Hgb Hct MCV MCH RDW Plt Count Lymph % (Auto) [place] % (Auto) Eos % (Auto) [place] # Seg Neutrophils % Seg Neuts % (Manual) Lymphocytes % (Manual) Seg Neutrophils # Seg Neutrophils # Man Lymphocytes # (Manual) APTT POC ABG pH ABG pH POC ABG pCO2 POC ABG pO2 ABG pO2 ABG HCO3 ABG Base Excess ABG Hemoglobin VBG pH Oxyhemoglobin Sodium Potassium Chloride Carbon Dioxide BUN Creatinine Glucose POC Glucose 201 H 233 H 269 H Lactic Acid Calcium AST ALT Alkaline Phosphatase CK-MB (CK-2) CK-MB (CK-2) Rel Index Total Protein Albumin TSH Urine WBC (Auto) Salicylates 02/26/17 02/26/17 02/26/17 11:48 13:49 21:26 WBC RBC Hgb Hct MCV MCH RDW Plt Count Lymph % (Auto) [place] % (Auto) Eos % (Auto) [place] # Seg Neutrophils % Seg Neuts % (Manual) Lymphocytes % (Manual) Seg Neutrophils # Seg Neutrophils # Man Lymphocytes # (Manual) APTT POC ABG pH ABG pH POC ABG pCO2 POC ABG pO2 ABG pO2 ABG HCO3 ABG Base Excess ABG Hemoglobin VBG pH Oxyhemoglobin Sodium Potassium Chloride Carbon Dioxide BUN Creatinine Glucose POC Glucose 333 H 322 H 244 H Lactic Acid Calcium AST ALT Alkaline Phosphatase CK-MB (CK-2) CK-MB (CK-2) Rel Index Total Protein Albumin TSH Urine WBC (Auto) Salicylates 02/27/17 02/27/17 02/27/17 05:27 13:51 21:48 WBC RBC Hgb Hct MCV MCH RDW Plt Count Lymph % (Auto) [place] % (Auto) Eos % (Auto) [place] # Seg Neutrophils % Seg Neuts % (Manual) Lymphocytes % (Manual) Seg Neutrophils # Seg Neutrophils # Man Lymphocytes # (Manual) APTT POC ABG pH ABG pH POC ABG pCO2 POC ABG pO2 ABG pO2 ABG HCO3 ABG Base Excess ABG Hemoglobin VBG pH Oxyhemoglobin Sodium Potassium Chloride Carbon Dioxide BUN Creatinine Glucose POC Glucose 217 H 239 H 254 H Lactic Acid Calcium AST ALT Alkaline Phosphatase CK-MB (CK-2) CK-MB (CK-2) Rel Index Total Protein Albumin TSH Urine WBC (Auto) Salicylates 02/28/17 02/28/17 02/28/17 05:38 11:00 19:44 WBC RBC Hgb Hct MCV MCH RDW Plt Count Lymph % (Auto) [place] % (Auto) Eos % (Auto) [place] # Seg Neutrophils % Seg Neuts % (Manual) Lymphocytes % (Manual) Seg Neutrophils # Seg Neutrophils # Man Lymphocytes # (Manual) APTT POC ABG pH ABG pH POC ABG pCO2 POC ABG pO2 ABG pO2 ABG HCO3 ABG Base Excess ABG Hemoglobin VBG pH Oxyhemoglobin Sodium Potassium Chloride Carbon Dioxide BUN Creatinine Glucose POC Glucose 325 H 203 H 116 H Lactic Acid Calcium AST ALT Alkaline Phosphatase CK-MB (CK-2) CK-MB (CK-2) Rel Index Total Protein Albumin TSH Urine WBC (Auto) Salicylates 03/01/17 03/01/17 03/01/17 00:08 05:31 12:17 WBC RBC Hgb Hct MCV MCH RDW Plt Count Lymph % (Auto) [place] % (Auto) Eos % (Auto) [place] # Seg Neutrophils % Seg Neuts % (Manual) Lymphocytes % (Manual) Seg Neutrophils # Seg Neutrophils # Man Lymphocytes # (Manual) APTT POC ABG pH ABG pH POC ABG pCO2 POC ABG pO2 ABG pO2 ABG HCO3 ABG Base Excess ABG Hemoglobin VBG pH Oxyhemoglobin Sodium Potassium Chloride Carbon Dioxide BUN Creatinine Glucose POC Glucose 202 H 183 H 184 H Lactic Acid Calcium AST ALT Alkaline Phosphatase CK-MB (CK-2) CK-MB (CK-2) Rel Index Total Protein Albumin TSH Urine WBC (Auto) Salicylates 03/02/17 03/02/17 03/02/17 00:12 05:58 18:22 WBC RBC Hgb Hct MCV MCH RDW Plt Count Lymph % (Auto) [place] % (Auto) Eos % (Auto) [place] # Seg Neutrophils % Seg Neuts % (Manual) Lymphocytes % (Manual) Seg Neutrophils # Seg Neutrophils # Man Lymphocytes # (Manual) APTT POC ABG pH ABG pH POC ABG pCO2 POC ABG pO2 ABG pO2 ABG HCO3 ABG Base Excess ABG Hemoglobin VBG pH Oxyhemoglobin Sodium Potassium Chloride Carbon Dioxide BUN Creatinine Glucose POC Glucose 117 H 176 H 156 H Lactic Acid Calcium AST ALT Alkaline Phosphatase CK-MB (CK-2) CK-MB (CK-2) Rel Index Total Protein Albumin TSH Urine WBC (Auto) Salicylates 03/02/17 03/03/17 03/03/17 23:51 05:44 11:32 WBC RBC Hgb Hct MCV MCH RDW Plt Count Lymph % (Auto) [place] % (Auto) Eos % (Auto) [place] # Seg Neutrophils % Seg Neuts % (Manual) Lymphocytes % (Manual) Seg Neutrophils # Seg Neutrophils # Man Lymphocytes # (Manual) APTT POC ABG pH ABG pH POC ABG pCO2 POC ABG pO2 ABG pO2 ABG HCO3 ABG Base Excess ABG Hemoglobin VBG pH Oxyhemoglobin Sodium Potassium Chloride Carbon Dioxide BUN Creatinine Glucose POC Glucose 211 H 117 H 133 H Lactic Acid Calcium AST ALT Alkaline Phosphatase CK-MB (CK-2) CK-MB (CK-2) Rel Index Total Protein Albumin TSH Urine WBC (Auto) Salicylates 03/03/17 03/03/17 03/04/17 17:43 23:17 05:30 WBC RBC Hgb Hct MCV MCH RDW Plt Count Lymph % (Auto) [place] % (Auto) Eos % (Auto) [place] # Seg Neutrophils % Seg Neuts % (Manual) Lymphocytes % (Manual) Seg Neutrophils # Seg Neutrophils # Man Lymphocytes # (Manual) APTT POC ABG pH ABG pH POC ABG pCO2 POC ABG pO2 ABG pO2 ABG HCO3 ABG Base Excess ABG Hemoglobin VBG pH Oxyhemoglobin Sodium Potassium Chloride Carbon Dioxide BUN Creatinine Glucose POC Glucose 206 H 170 H 126 H Lactic Acid Calcium AST ALT Alkaline Phosphatase CK-MB (CK-2) CK-MB (CK-2) Rel Index Total Protein Albumin TSH Urine WBC (Auto) Salicylates 03/04/17 03/04/17 03/05/17 12:17 17:27 05:20 WBC RBC Hgb Hct MCV MCH RDW Plt Count Lymph % (Auto) [place] % (Auto) Eos % (Auto) [place] # Seg Neutrophils % Seg Neuts % (Manual) Lymphocytes % (Manual) Seg Neutrophils # Seg Neutrophils # Man Lymphocytes # (Manual) APTT POC ABG pH ABG pH POC ABG pCO2 POC ABG pO2 ABG pO2 ABG HCO3 ABG Base Excess ABG Hemoglobin VBG pH Oxyhemoglobin Sodium Potassium Chloride Carbon Dioxide BUN Creatinine Glucose POC Glucose 135 H 121 H 185 H Lactic Acid Calcium AST ALT Alkaline Phosphatase CK-MB (CK-2) CK-MB (CK-2) Rel Index Total Protein Albumin TSH Urine WBC (Auto) Salicylates 03/05/17 03/06/17 03/06/17 11:50 11:52 17:34 WBC RBC Hgb Hct MCV MCH RDW Plt Count Lymph % (Auto) [place] % (Auto) Eos % (Auto) [place] # Seg Neutrophils % Seg Neuts % (Manual) Lymphocytes % (Manual) Seg Neutrophils # Seg Neutrophils # Man Lymphocytes # (Manual) APTT POC ABG pH ABG pH POC ABG pCO2 POC ABG pO2 ABG pO2 ABG HCO3 ABG Base Excess ABG Hemoglobin VBG pH Oxyhemoglobin Sodium Potassium Chloride Carbon Dioxide BUN Creatinine Glucose POC Glucose 116 H 133 H 181 H Lactic Acid Calcium AST ALT Alkaline Phosphatase CK-MB (CK-2) CK-MB (CK-2) Rel Index Total Protein Albumin TSH Urine WBC (Auto) Salicylates 03/07/17 03/07/17 03/07/17 05:21 11:36 17:49 WBC RBC Hgb Hct MCV MCH RDW Plt Count Lymph % (Auto) [place] % (Auto) Eos % (Auto) [place] # Seg Neutrophils % Seg Neuts % (Manual) Lymphocytes % (Manual) Seg Neutrophils # Seg Neutrophils # Man Lymphocytes # (Manual) APTT POC ABG pH ABG pH POC ABG pCO2 POC ABG pO2 ABG pO2 ABG HCO3 ABG Base Excess ABG Hemoglobin VBG pH Oxyhemoglobin Sodium Potassium Chloride Carbon Dioxide BUN Creatinine Glucose POC Glucose 159 H 137 H 158 H Lactic Acid Calcium AST ALT Alkaline Phosphatase CK-MB (CK-2) CK-MB (CK-2) Rel Index Total Protein Albumin TSH Urine WBC (Auto) Salicylates 03/08/17 03/08/17 03/08/17 05:51 13:58 23:50 WBC RBC Hgb Hct MCV MCH RDW Plt Count Lymph % (Auto) [place] % (Auto) Eos % (Auto) [place] # Seg Neutrophils % Seg Neuts % (Manual) Lymphocytes % (Manual) Seg Neutrophils # Seg Neutrophils # Man Lymphocytes # (Manual) APTT POC ABG pH ABG pH POC ABG pCO2 POC ABG pO2 ABG pO2 ABG HCO3 ABG Base Excess ABG Hemoglobin VBG pH Oxyhemoglobin Sodium Potassium Chloride Carbon Dioxide BUN Creatinine Glucose POC Glucose 122 H 182 H 114 H Lactic Acid Calcium AST ALT Alkaline Phosphatase CK-MB (CK-2) CK-MB (CK-2) Rel Index Total Protein Albumin TSH Urine WBC (Auto) Salicylates 03/09/17 03/09/17 03/09/17 05:21 05:51 05:51 WBC RBC 3.61 L Hgb 9.5 L Hct 28.3 L MCV 79 L MCH 26 L RDW 17.8 H Plt Count Lymph % (Auto) [place] % (Auto) Eos % (Auto) [place] # Seg Neutrophils % Seg Neuts % (Manual) Lymphocytes % (Manual) Seg Neutrophils # Seg Neutrophils # Man Lymphocytes # (Manual) APTT POC ABG pH ABG pH POC ABG pCO2 POC ABG pO2 ABG pO2 ABG HCO3 ABG Base Excess ABG Hemoglobin VBG pH Oxyhemoglobin Sodium 134 L Potassium Chloride 95.5 L Carbon Dioxide BUN 33 H Creatinine 0.5 L Glucose 143 H POC Glucose 153 H Lactic Acid Calcium AST ALT Alkaline Phosphatase CK-MB (CK-2) CK-MB (CK-2) Rel Index Total Protein Albumin TSH Urine WBC (Auto) Salicylates 03/09/17 03/09/17 03/09/17 12:10 18:13 21:00 WBC RBC Hgb Hct MCV MCH RDW Plt Count Lymph % (Auto) [place] % (Auto) Eos % (Auto) [place] # Seg Neutrophils % Seg Neuts % (Manual) Lymphocytes % (Manual) Seg Neutrophils # Seg Neutrophils # Man Lymphocytes # (Manual) APTT POC ABG pH ABG pH POC ABG pCO2 POC ABG pO2 ABG pO2 ABG HCO3 ABG Base Excess ABG Hemoglobin VBG pH Oxyhemoglobin Sodium Potassium Chloride Carbon Dioxide BUN Creatinine Glucose POC Glucose 203 H 221 H 198 H Lactic Acid Calcium AST ALT Alkaline Phosphatase CK-MB (CK-2) CK-MB (CK-2) Rel Index Total Protein Albumin TSH Urine WBC (Auto) Salicylates 03/09/17 03/10/17 03/10/17 23:58 05:09 05:09 WBC RBC Hgb 10.3 L Hct 30.5 L MCV 78 L MCH 26 L RDW 17.9 H Plt Count Lymph % (Auto) [place] % (Auto) 10.0 H Eos % (Auto) 6.0 H [place] # Seg Neutrophils % Seg Neuts % (Manual) Lymphocytes % (Manual) Seg Neutrophils # Seg Neutrophils # Man Lymphocytes # (Manual) APTT POC ABG pH ABG pH POC ABG pCO2 POC ABG pO2 ABG pO2 ABG HCO3 ABG Base Excess ABG Hemoglobin VBG pH Oxyhemoglobin Sodium 132 L Potassium Chloride 92.2 L Carbon Dioxide BUN 33 H Creatinine 0.5 L Glucose 50 L POC Glucose 167 H Lactic Acid Calcium AST ALT Alkaline Phosphatase CK-MB (CK-2) CK-MB (CK-2) Rel Index Total Protein Albumin TSH Urine WBC (Auto) Salicylates 03/10/17 03/10/1717 05:33 05:34 11:48 WBC RBC Hgb Hct MCV MCH RDW Plt Count Lymph % (Auto) [place] % (Auto) Eos % (Auto) [place] # Seg Neutrophils % Seg Neuts % (Manual) Lymphocytes % (Manual) Seg Neutrophils # Seg Neutrophils # Man Lymphocytes # (Manual) APTT POC ABG pH ABG pH POC ABG pCO2 POC ABG pO2 ABG pO2 ABG HCO3 ABG Base Excess ABG Hemoglobin VBG pH Oxyhemoglobin Sodium Potassium Chloride Carbon Dioxide BUN Creatinine Glucose POC Glucose 52 L 53 L 148 H Lactic Acid Calcium AST ALT Alkaline Phosphatase CK-MB (CK-2) CK-MB (CK-2) Rel Index Total Protein Albumin TSH Urine WBC (Auto) Salicylates 03/10/17 03/10/17 03/11/17 17:53 23:47 05:18 WBC RBC Hgb Hct MCV MCH RDW Plt Count Lymph % (Auto) [place] % (Auto) Eos % (Auto) [place] # Seg Neutrophils % Seg Neuts % (Manual) Lymphocytes % (Manual) Seg Neutrophils # Seg Neutrophils # Man Lymphocytes # (Manual) APTT POC ABG pH ABG pH POC ABG pCO2 POC ABG pO2 ABG pO2 ABG HCO3 ABG Base Excess ABG Hemoglobin VBG pH Oxyhemoglobin Sodium Potassium Chloride Carbon Dioxide BUN Creatinine Glucose POC Glucose 189 H 398 H 126 H Lactic Acid Calcium AST ALT Alkaline Phosphatase CK-MB (CK-2) CK-MB (CK-2) Rel Index Total Protein Albumin TSH Urine WBC (Auto) Salicylates 03/11/17 03/11/17 03/11/17 11:53 17:30 23:10 WBC RBC Hgb Hct MCV MCH RDW Plt Count Lymph % (Auto) [place] % (Auto) Eos % (Auto) [place] # Seg Neutrophils % Seg Neuts % (Manual) Lymphocytes % (Manual) Seg Neutrophils # Seg Neutrophils # Man Lymphocytes # (Manual) APTT POC ABG pH ABG pH POC ABG pCO2 POC ABG pO2 ABG pO2 ABG HCO3 ABG Base Excess ABG Hemoglobin VBG pH Oxyhemoglobin Sodium Potassium Chloride Carbon Dioxide BUN Creatinine Glucose POC Glucose 198 H 142 H 244 H Lactic Acid Calcium AST ALT Alkaline Phosphatase CK-MB (CK-2) CK-MB (CK-2) Rel Index Total Protein Albumin TSH Urine WBC (Auto) Salicylates 03/12/17 03/12/17 03/12/17 04:36 11:49 17:23 WBC RBC Hgb Hct MCV MCH RDW Plt Count Lymph % (Auto) [place] % (Auto) Eos % (Auto) [place] # Seg Neutrophils % Seg Neuts % (Manual) Lymphocytes % (Manual) Seg Neutrophils # Seg Neutrophils # Man Lymphocytes # (Manual) APTT POC ABG pH ABG pH POC ABG pCO2 POC ABG pO2 ABG pO2 ABG HCO3 ABG Base Excess ABG Hemoglobin VBG pH Oxyhemoglobin Sodium Potassium Chloride Carbon Dioxide BUN Creatinine Glucose POC Glucose 205 H 197 H 209 H Lactic Acid Calcium AST ALT Alkaline Phosphatase CK-MB (CK-2) CK-MB (CK-2) Rel Index Total Protein Albumin TSH Urine WBC (Auto) Salicylates 03/12/17 03/13/17 03/13/17 23:51 05:32 11:43 WBC RBC Hgb Hct MCV MCH RDW Plt Count Lymph % (Auto) [place] % (Auto) Eos % (Auto) [place] # Seg Neutrophils % Seg Neuts % (Manual) Lymphocytes % (Manual) Seg Neutrophils # Seg Neutrophils # Man Lymphocytes # (Manual) APTT POC ABG pH ABG pH POC ABG pCO2 POC ABG pO2 ABG pO2 ABG HCO3 ABG Base Excess ABG Hemoglobin VBG pH Oxyhemoglobin Sodium Potassium Chloride Carbon Dioxide BUN Creatinine Glucose POC Glucose 210 H 154 H 164 H Lactic Acid Calcium AST ALT Alkaline Phosphatase CK-MB (CK-2) CK-MB (CK-2) Rel Index Total Protein Albumin TSH Urine WBC (Auto) Salicylates 03/13/17 03/13/17 03/14/17 17:11 23:26 05:42 WBC RBC Hgb Hct MCV MCH RDW Plt Count Lymph % (Auto) [place] % (Auto) Eos % (Auto) [place] # Seg Neutrophils % Seg Neuts % (Manual) Lymphocytes % (Manual) Seg Neutrophils # Seg Neutrophils # Man Lymphocytes # (Manual) APTT POC ABG pH ABG pH POC ABG pCO2 POC ABG pO2 ABG pO2 ABG HCO3 ABG Base Excess ABG Hemoglobin VBG pH Oxyhemoglobin Sodium Potassium Chloride Carbon Dioxide BUN Creatinine Glucose POC Glucose 195 H 240 H 230 H Lactic Acid Calcium AST ALT Alkaline Phosphatase CK-MB (CK-2) CK-MB (CK-2) Rel Index Total Protein Albumin TSH Urine WBC (Auto) Salicylates 03/14/17 03/14/17 03/14/17 14:04 17:34 23:42 WBC RBC Hgb Hct MCV MCH RDW Plt Count Lymph % (Auto) [place] % (Auto) Eos % (Auto) [place] # Seg Neutrophils % Seg Neuts % (Manual) Lymphocytes % (Manual) Seg Neutrophils # Seg Neutrophils # Man Lymphocytes # (Manual) APTT POC ABG pH ABG pH POC ABG pCO2 POC ABG pO2 ABG pO2 ABG HCO3 ABG Base Excess ABG Hemoglobin VBG pH Oxyhemoglobin Sodium Potassium Chloride Carbon Dioxide BUN Creatinine Glucose POC Glucose 227 H 186 H 225 H Lactic Acid Calcium AST ALT Alkaline Phosphatase CK-MB (CK-2) CK-MB (CK-2) Rel Index Total Protein Albumin TSH Urine WBC (Auto) Salicylates 03/15/17 03/15/17 03/15/17 05:21 17:13 21:37 WBC RBC Hgb Hct MCV MCH RDW Plt Count Lymph % (Auto) [place] % (Auto) Eos % (Auto) [place] # Seg Neutrophils % Seg Neuts % (Manual) Lymphocytes % (Manual) Seg Neutrophils # Seg Neutrophils # Man Lymphocytes # (Manual) APTT POC ABG pH ABG pH POC ABG pCO2 POC ABG pO2 ABG pO2 ABG HCO3 ABG Base Excess ABG Hemoglobin VBG pH Oxyhemoglobin Sodium Potassium Chloride Carbon Dioxide BUN Creatinine Glucose POC Glucose 244 H 203 H 216 H Lactic Acid Calcium AST ALT Alkaline Phosphatase CK-MB (CK-2) CK-MB (CK-2) Rel Index Total Protein Albumin TSH Urine WBC (Auto) Salicylates 03/16/17 03/16/17 03/16/17 05:52 18:07 21:54 WBC RBC Hgb Hct MCV MCH RDW Plt Count Lymph % (Auto) [place] % (Auto) Eos % (Auto) [place] # Seg Neutrophils % Seg Neuts % (Manual) Lymphocytes % (Manual) Seg Neutrophils # Seg Neutrophils # Man Lymphocytes # (Manual) APTT POC ABG pH ABG pH POC ABG pCO2 POC ABG pO2 ABG pO2 ABG HCO3 ABG Base Excess ABG Hemoglobin VBG pH Oxyhemoglobin Sodium Potassium Chloride Carbon Dioxide BUN Creatinine Glucose POC Glucose 248 H 254 H 244 H Lactic Acid Calcium AST ALT Alkaline Phosphatase CK-MB (CK-2) CK-MB (CK-2) Rel Index Total Protein Albumin TSH Urine WBC (Auto) Salicylates 03/17/17 03/17/17 03/17/17 07:07 07:42 07:43 WBC RBC Hgb 9.7 L Hct 29.1 L MCV 78 L MCH 26 L RDW 17.4 H Plt Count Lymph % (Auto) [place] % (Auto) Eos % (Auto) [place] # Seg Neutrophils % Seg Neuts % (Manual) Lymphocytes % (Manual) Seg Neutrophils # Seg Neutrophils # Man Lymphocytes # (Manual) APTT POC ABG pH ABG pH POC ABG pCO2 POC ABG pO2 ABG pO2 ABG HCO3 ABG Base Excess ABG Hemoglobin VBG pH Oxyhemoglobin Sodium Potassium Chloride 96.6 L Carbon Dioxide BUN 30 H Creatinine 0.5 L Glucose 251 H POC Glucose 222 H Lactic Acid Calcium AST ALT Alkaline Phosphatase CK-MB (CK-2) CK-MB (CK-2) Rel Index Total Protein Albumin TSH Urine WBC (Auto) Salicylates 03/17/17 03/17/17 03/18/17 14:08 21:20 14:24 WBC RBC Hgb Hct MCV MCH RDW Plt Count Lymph % (Auto) [place] % (Auto) Eos % (Auto) [place] # Seg Neutrophils % Seg Neuts % (Manual) Lymphocytes % (Manual) Seg Neutrophils # Seg Neutrophils # Man Lymphocytes # (Manual) APTT POC ABG pH ABG pH POC ABG pCO2 POC ABG pO2 ABG pO2 ABG HCO3 ABG Base Excess ABG Hemoglobin VBG pH Oxyhemoglobin Sodium Potassium Chloride Carbon Dioxide BUN Creatinine Glucose POC Glucose 281 H 239 H 195 H Lactic Acid Calcium AST ALT Alkaline Phosphatase CK-MB (CK-2) CK-MB (CK-2) Rel Index Total Protein Albumin TSH Urine WBC (Auto) Salicylates 03/18/17 03/19/17 03/19/17 21:37 04:57 14:23 WBC RBC Hgb Hct MCV MCH RDW Plt Count Lymph % (Auto) [place] % (Auto) Eos % (Auto) [place] # Seg Neutrophils % Seg Neuts % (Manual) Lymphocytes % (Manual) Seg Neutrophils # Seg Neutrophils # Man Lymphocytes # (Manual) APTT POC ABG pH ABG pH POC ABG pCO2 POC ABG pO2 ABG pO2 ABG HCO3 ABG Base Excess ABG Hemoglobin VBG pH Oxyhemoglobin Sodium Potassium Chloride Carbon Dioxide BUN Creatinine Glucose POC Glucose 227 H 205 H 277 H Lactic Acid Calcium AST ALT Alkaline Phosphatase CK-MB (CK-2) CK-MB (CK-2) Rel Index Total Protein Albumin TSH Urine WBC (Auto) Salicylates 03/19/17 03/19/17 03/20/17 20:31 21:47 04:55 WBC RBC Hgb Hct MCV MCH RDW Plt Count Lymph % (Auto) [place] % (Auto) Eos % (Auto) [place] # Seg Neutrophils % Seg Neuts % (Manual) Lymphocytes % (Manual) Seg Neutrophils # Seg Neutrophils # Man Lymphocytes # (Manual) APTT POC ABG pH ABG pH POC ABG pCO2 POC ABG pO2 ABG pO2 ABG HCO3 ABG Base Excess ABG Hemoglobin VBG pH Oxyhemoglobin Sodium Potassium Chloride Carbon Dioxide BUN Creatinine Glucose POC Glucose 256 H 270 H 202 H Lactic Acid Calcium AST ALT Alkaline Phosphatase CK-MB (CK-2) CK-MB (CK-2) Rel Index Total Protein Albumin TSH Urine WBC (Auto) Salicylates 03/20/17 03/20/17 03/21/17 14:09 21:40 05:09 WBC RBC Hgb Hct MCV MCH RDW Plt Count Lymph % (Auto) [place] % (Auto) Eos % (Auto) [place] # Seg Neutrophils % Seg Neuts % (Manual) Lymphocytes % (Manual) Seg Neutrophils # Seg Neutrophils # Man Lymphocytes # (Manual) APTT POC ABG pH ABG pH POC ABG pCO2 POC ABG pO2 ABG pO2 ABG HCO3 ABG Base Excess ABG Hemoglobin VBG pH Oxyhemoglobin Sodium Potassium Chloride Carbon Dioxide BUN Creatinine Glucose POC Glucose 200 H 214 H 233 H Lactic Acid Calcium AST ALT Alkaline Phosphatase CK-MB (CK-2) CK-MB (CK-2) Rel Index Total Protein Albumin TSH Urine WBC (Auto) Salicylates 03/21/17 03/21/17 03/22/17 14:06 21:26 05:43 WBC RBC Hgb Hct MCV MCH RDW Plt Count Lymph % (Auto) [place] % (Auto) Eos % (Auto) [place] # Seg Neutrophils % Seg Neuts % (Manual) Lymphocytes % (Manual) Seg Neutrophils # Seg Neutrophils # Man Lymphocytes # (Manual) APTT POC ABG pH ABG pH POC ABG pCO2 POC ABG pO2 ABG pO2 ABG HCO3 ABG Base Excess ABG Hemoglobin VBG pH Oxyhemoglobin Sodium Potassium Chloride Carbon Dioxide BUN Creatinine Glucose POC Glucose 250 H 155 H 251 H Lactic Acid Calcium AST ALT Alkaline Phosphatase CK-MB (CK-2) CK-MB (CK-2) Rel Index Total Protein Albumin TSH Urine WBC (Auto) Salicylates 03/22/17 03/22/17 03/23/17 13:46 21:16 00:23 WBC RBC Hgb Hct MCV MCH RDW Plt Count Lymph % (Auto) [place] % (Auto) Eos % (Auto) [place] # Seg Neutrophils % Seg Neuts % (Manual) Lymphocytes % (Manual) Seg Neutrophils # Seg Neutrophils # Man Lymphocytes # (Manual) APTT POC ABG pH ABG pH POC ABG pCO2 POC ABG pO2 ABG pO2 ABG HCO3 ABG Base Excess ABG Hemoglobin VBG pH Oxyhemoglobin Sodium Potassium Chloride Carbon Dioxide BUN Creatinine Glucose POC Glucose 269 H 197 H 126 H Lactic Acid Calcium AST ALT Alkaline Phosphatase CK-MB (CK-2) CK-MB (CK-2) Rel Index Total Protein Albumin TSH Urine WBC (Auto) Salicylates 03/23/17 03/23/17 03/23/17 05:39 14:06 21:39 WBC RBC Hgb Hct MCV MCH RDW Plt Count Lymph % (Auto) [place] % (Auto) Eos % (Auto) [place] # Seg Neutrophils % Seg Neuts % (Manual) Lymphocytes % (Manual) Seg Neutrophils # Seg Neutrophils # Man Lymphocytes # (Manual) APTT POC ABG pH ABG pH POC ABG pCO2 POC ABG pO2 ABG pO2 ABG HCO3 ABG Base Excess ABG Hemoglobin VBG pH Oxyhemoglobin Sodium Potassium Chloride Carbon Dioxide BUN Creatinine Glucose POC Glucose 234 H 241 H 248 H Lactic Acid Calcium AST ALT Alkaline Phosphatase CK-MB (CK-2) CK-MB (CK-2) Rel Index Total Protein Albumin TSH Urine WBC (Auto) Salicylates 03/24/17 03/24/17 03/25/17 05:06 21:46 05:38 WBC RBC Hgb Hct MCV MCH RDW Plt Count Lymph % (Auto) [place] % (Auto) Eos % (Auto) [place] # Seg Neutrophils % Seg Neuts % (Manual) Lymphocytes % (Manual) Seg Neutrophils # Seg Neutrophils # Man Lymphocytes # (Manual) APTT POC ABG pH ABG pH POC ABG pCO2 POC ABG pO2 ABG pO2 ABG HCO3 ABG Base Excess ABG Hemoglobin VBG pH Oxyhemoglobin Sodium Potassium Chloride Carbon Dioxide BUN Creatinine Glucose POC Glucose 232 H 276 H 242 H Lactic Acid Calcium AST ALT Alkaline Phosphatase CK-MB (CK-2) CK-MB (CK-2) Rel Index Total Protein Albumin TSH Urine WBC (Auto) Salicylates 03/25/17 03/25/17 03/26/17 14:30 23:14 13:53 WBC RBC Hgb Hct MCV MCH RDW Plt Count Lymph % (Auto) [place] % (Auto) Eos % (Auto) [place] # Seg Neutrophils % Seg Neuts % (Manual) Lymphocytes % (Manual) Seg Neutrophils # Seg Neutrophils # Man Lymphocytes # (Manual) APTT POC ABG pH ABG pH POC ABG pCO2 POC ABG pO2 ABG pO2 ABG HCO3 ABG Base Excess ABG Hemoglobin VBG pH Oxyhemoglobin Sodium Potassium Chloride Carbon Dioxide BUN Creatinine Glucose POC Glucose 246 H 208 H 195 H Lactic Acid Calcium AST ALT Alkaline Phosphatase CK-MB (CK-2) CK-MB (CK-2) Rel Index Total Protein Albumin TSH Urine WBC (Auto) Salicylates 03/26/17 03/27/17 03/27/17 21:58 05:18 14:57 WBC RBC Hgb Hct MCV MCH RDW Plt Count Lymph % (Auto) [place] % (Auto) Eos % (Auto) [place] # Seg Neutrophils % Seg Neuts % (Manual) Lymphocytes % (Manual) Seg Neutrophils # Seg Neutrophils # Man Lymphocytes # (Manual) APTT POC ABG pH ABG pH POC ABG pCO2 POC ABG pO2 ABG pO2 ABG HCO3 ABG Base Excess ABG Hemoglobin VBG pH Oxyhemoglobin Sodium Potassium Chloride Carbon Dioxide BUN Creatinine Glucose POC Glucose 241 H 199 H 269 H Lactic Acid Calcium AST ALT Alkaline Phosphatase CK-MB (CK-2) CK-MB (CK-2) Rel Index Total Protein Albumin TSH Urine WBC (Auto) Salicylates 03/27/17 03/28/17 03/28/17 21:33 13:52 21:29 WBC RBC Hgb Hct MCV MCH RDW Plt Count Lymph % (Auto) [place] % (Auto) Eos % (Auto) [place] # Seg Neutrophils % Seg Neuts % (Manual) Lymphocytes % (Manual) Seg Neutrophils # Seg Neutrophils # Man Lymphocytes # (Manual) APTT POC ABG pH ABG pH POC ABG pCO2 POC ABG pO2 ABG pO2 ABG HCO3 ABG Base Excess ABG Hemoglobin VBG pH Oxyhemoglobin Sodium Potassium Chloride Carbon Dioxide BUN Creatinine Glucose POC Glucose 214 H 243 H 286 H Lactic Acid Calcium AST ALT Alkaline Phosphatase CK-MB (CK-2) CK-MB (CK-2) Rel Index Total Protein Albumin TSH Urine WBC (Auto) Salicylates 03/29/17 03/29/17 03/29/17 04:32 04:32 13:58 WBC RBC Hgb 10.6 L Hct 32.9 L MCV 78 L MCH 25 L RDW 17.6 H Plt Count Lymph % (Auto) 38.0 H [place] % (Auto) 9.7 H Eos % (Auto) [place] # Seg Neutrophils % Seg Neuts % (Manual) Lymphocytes % (Manual) Seg Neutrophils # Seg Neutrophils # Man Lymphocytes # (Manual) APTT POC ABG pH ABG pH POC ABG pCO2 POC ABG pO2 ABG pO2 ABG HCO3 ABG Base Excess ABG Hemoglobin VBG pH Oxyhemoglobin Sodium 132 L Potassium Chloride 94.0 L Carbon Dioxide BUN 28 H Creatinine 0.5 L Glucose 236 H POC Glucose 171 H Lactic Acid Calcium AST ALT 71 H Alkaline Phosphatase 391 H CK-MB (CK-2) CK-MB (CK-2) Rel Index Total Protein 8.3 H Albumin 2.9 L TSH Urine WBC (Auto) Salicylates 03/29/17 03/30/17 03/30/17 20:59 06:07 11:52 WBC RBC Hgb Hct MCV MCH RDW Plt Count Lymph % (Auto) [place] % (Auto) Eos % (Auto) [place] # Seg Neutrophils % Seg Neuts % (Manual) Lymphocytes % (Manual) Seg Neutrophils # Seg Neutrophils # Man Lymphocytes # (Manual) APTT POC ABG pH ABG pH POC ABG pCO2 POC ABG pO2 ABG pO2 ABG HCO3 ABG Base Excess ABG Hemoglobin VBG pH Oxyhemoglobin Sodium Potassium Chloride Carbon Dioxide BUN Creatinine Glucose POC Glucose 215 H 259 H 197 H Lactic Acid Calcium AST ALT Alkaline Phosphatase CK-MB (CK-2) CK-MB (CK-2) Rel Index Total Protein Albumin TSH Urine WBC (Auto) Salicylates 03/30/17 03/31/17 03/31/17 21:34 05:42 14:34 WBC RBC Hgb Hct MCV MCH RDW Plt Count Lymph % (Auto) [place] % (Auto) Eos % (Auto) [place] # Seg Neutrophils % Seg Neuts % (Manual) Lymphocytes % (Manual) Seg Neutrophils # Seg Neutrophils # Man Lymphocytes # (Manual) APTT POC ABG pH ABG pH POC ABG pCO2 POC ABG pO2 ABG pO2 ABG HCO3 ABG Base Excess ABG Hemoglobin VBG pH Oxyhemoglobin Sodium Potassium Chloride Carbon Dioxide BUN Creatinine Glucose POC Glucose 207 H 184 H 213 H Lactic Acid Calcium AST ALT Alkaline Phosphatase CK-MB (CK-2) CK-MB (CK-2) Rel Index Total Protein Albumin TSH Urine WBC (Auto) Salicylates 03/31/17 04/01/17 04/01/17 21:32 05:53 13:48 WBC RBC Hgb Hct MCV MCH RDW Plt Count Lymph % (Auto) [place] % (Auto) Eos % (Auto) [place] # Seg Neutrophils % Seg Neuts % (Manual) Lymphocytes % (Manual) Seg Neutrophils # Seg Neutrophils # Man Lymphocytes # (Manual) APTT POC ABG pH ABG pH POC ABG pCO2 POC ABG pO2 ABG pO2 ABG HCO3 ABG Base Excess ABG Hemoglobin VBG pH Oxyhemoglobin Sodium Potassium Chloride Carbon Dioxide BUN Creatinine Glucose POC Glucose 249 H 225 H 256 H Lactic Acid Calcium AST ALT Alkaline Phosphatase CK-MB (CK-2) CK-MB (CK-2) Rel Index Total Protein Albumin TSH Urine WBC (Auto) Salicylates 04/01/17 04/02/17 04/02/17 21:34 05:32 14:05 WBC RBC Hgb Hct MCV MCH RDW Plt Count Lymph % (Auto) [place] % (Auto) Eos % (Auto) [place] # Seg Neutrophils % Seg Neuts % (Manual) Lymphocytes % (Manual) Seg Neutrophils # Seg Neutrophils # Man Lymphocytes # (Manual) APTT POC ABG pH ABG pH POC ABG pCO2 POC ABG pO2 ABG pO2 ABG HCO3 ABG Base Excess ABG Hemoglobin VBG pH Oxyhemoglobin Sodium Potassium Chloride Carbon Dioxide BUN Creatinine Glucose POC Glucose 292 H 220 H 187 H Lactic Acid Calcium AST ALT Alkaline Phosphatase CK-MB (CK-2) CK-MB (CK-2) Rel Index Total Protein Albumin TSH Urine WBC (Auto) Salicylates 04/02/17 04/03/17 04/03/17 21:57 04:49 14:12 WBC RBC Hgb Hct MCV MCH RDW Plt Count Lymph % (Auto) [place] % (Auto) Eos % (Auto) [place] # Seg Neutrophils % Seg Neuts % (Manual) Lymphocytes % (Manual) Seg Neutrophils # Seg Neutrophils # Man Lymphocytes # (Manual) APTT POC ABG pH ABG pH POC ABG pCO2 POC ABG pO2 ABG pO2 ABG HCO3 ABG Base Excess ABG Hemoglobin VBG pH Oxyhemoglobin Sodium Potassium Chloride Carbon Dioxide BUN Creatinine Glucose POC Glucose 285 H 256 H 197 H Lactic Acid Calcium AST ALT Alkaline Phosphatase CK-MB (CK-2) CK-MB (CK-2) Rel Index Total Protein Albumin TSH Urine WBC (Auto) Salicylates 04/03/17 04/04/17 04/04/17 21:11 05:20 13:18 WBC RBC Hgb Hct MCV MCH RDW Plt Count Lymph % (Auto) [place] % (Auto) Eos % (Auto) [place] # Seg Neutrophils % Seg Neuts % (Manual) Lymphocytes % (Manual) Seg Neutrophils # Seg Neutrophils # Man Lymphocytes # (Manual) APTT POC ABG pH ABG pH POC ABG pCO2 POC ABG pO2 ABG pO2 ABG HCO3 ABG Base Excess ABG Hemoglobin VBG pH Oxyhemoglobin Sodium Potassium Chloride Carbon Dioxide BUN Creatinine Glucose POC Glucose 166 H 228 H 252 H Lactic Acid Calcium AST ALT Alkaline Phosphatase CK-MB (CK-2) CK-MB (CK-2) Rel Index Total Protein Albumin TSH Urine WBC (Auto) Salicylates 04/04/17 04/05/17 04/05/17 21:51 06:14 09:54 WBC RBC Hgb Hct MCV MCH RDW Plt Count Lymph % (Auto) [place] % (Auto) Eos % (Auto) [place] # Seg Neutrophils % Seg Neuts % (Manual) Lymphocytes % (Manual) Seg Neutrophils # Seg Neutrophils # Man Lymphocytes # (Manual) APTT POC ABG pH ABG pH POC ABG pCO2 POC ABG pO2 ABG pO2 ABG HCO3 ABG Base Excess ABG Hemoglobin VBG pH Oxyhemoglobin Sodium Potassium Chloride Carbon Dioxide BUN Creatinine Glucose POC Glucose 252 H 152 H 181 H Lactic Acid Calcium AST ALT Alkaline Phosphatase CK-MB (CK-2) CK-MB (CK-2) Rel Index Total Protein Albumin TSH Urine WBC (Auto) Salicylates 04/05/17 04/05/17 04/05/17 14:49 17:34 21:38 WBC RBC Hgb Hct MCV MCH RDW Plt Count Lymph % (Auto) [place] % (Auto) Eos % (Auto) [place] # Seg Neutrophils % Seg Neuts % (Manual) Lymphocytes % (Manual) Seg Neutrophils # Seg Neutrophils # Man Lymphocytes # (Manual) APTT POC ABG pH ABG pH POC ABG pCO2 POC ABG pO2 ABG pO2 ABG HCO3 ABG Base Excess ABG Hemoglobin VBG pH Oxyhemoglobin Sodium Potassium Chloride Carbon Dioxide BUN Creatinine Glucose POC Glucose 219 H 268 H 278 H Lactic Acid Calcium AST ALT Alkaline Phosphatase CK-MB (CK-2) CK-MB (CK-2) Rel Index Total Protein Albumin TSH Urine WBC (Auto) Salicylates 04/06/17 04/06/17 04/07/17 15:04 22:14 05:09 WBC RBC Hgb Hct MCV MCH RDW Plt Count Lymph % (Auto) [place] % (Auto) Eos % (Auto) [place] # Seg Neutrophils % Seg Neuts % (Manual) Lymphocytes % (Manual) Seg Neutrophils # Seg Neutrophils # Man Lymphocytes # (Manual) APTT POC ABG pH ABG pH POC ABG pCO2 POC ABG pO2 ABG pO2 ABG HCO3 ABG Base Excess ABG Hemoglobin VBG pH Oxyhemoglobin Sodium Potassium Chloride Carbon Dioxide BUN Creatinine Glucose POC Glucose 285 H 106 H 334 H Lactic Acid Calcium AST ALT Alkaline Phosphatase CK-MB (CK-2) CK-MB (CK-2) Rel Index Total Protein Albumin TSH Urine WBC (Auto) Salicylates 04/07/17 04/07/17 04/08/17 14:45 21:48 05:28 WBC RBC Hgb Hct MCV MCH RDW Plt Count Lymph % (Auto) [place] % (Auto) Eos % (Auto) [place] # Seg Neutrophils % Seg Neuts % (Manual) Lymphocytes % (Manual) Seg Neutrophils # Seg Neutrophils # Man Lymphocytes # (Manual) APTT POC ABG pH ABG pH POC ABG pCO2 POC ABG pO2 ABG pO2 ABG HCO3 ABG Base Excess ABG Hemoglobin VBG pH Oxyhemoglobin Sodium Potassium Chloride Carbon Dioxide BUN Creatinine Glucose POC Glucose 173 H 304 H 314 H Lactic Acid Calcium AST ALT Alkaline Phosphatase CK-MB (CK-2) CK-MB (CK-2) Rel Index Total Protein Albumin TSH Urine WBC (Auto) Salicylates 04/08/17 04/08/17 04/08/17 15:57 16:17 22:21 WBC RBC Hgb Hct MCV MCH RDW Plt Count Lymph % (Auto) [place] % (Auto) Eos % (Auto) [place] # Seg Neutrophils % Seg Neuts % (Manual) Lymphocytes % (Manual) Seg Neutrophils # Seg Neutrophils # Man Lymphocytes # (Manual) APTT POC ABG pH ABG pH POC ABG pCO2 POC ABG pO2 ABG pO2 ABG HCO3 ABG Base Excess ABG Hemoglobin VBG pH Oxyhemoglobin Sodium Potassium Chloride Carbon Dioxide BUN Creatinine Glucose POC Glucose 356 H 337 H 323 H Lactic Acid Calcium AST ALT Alkaline Phosphatase CK-MB (CK-2) CK-MB (CK-2) Rel Index Total Protein Albumin TSH Urine WBC (Auto) Salicylates 04/09/17 04/09/17 04/09/17 06:19 15:30 21:52 WBC RBC Hgb Hct MCV MCH RDW Plt Count Lymph % (Auto) [place] % (Auto) Eos % (Auto) [place] # Seg Neutrophils % Seg Neuts % (Manual) Lymphocytes % (Manual) Seg Neutrophils # Seg Neutrophils # Man Lymphocytes # (Manual) APTT POC ABG pH ABG pH POC ABG pCO2 POC ABG pO2 ABG pO2 ABG HCO3 ABG Base Excess ABG Hemoglobin VBG pH Oxyhemoglobin Sodium Potassium Chloride Carbon Dioxide BUN Creatinine Glucose POC Glucose 340 H 332 H 341 H Lactic Acid Calcium AST ALT Alkaline Phosphatase CK-MB (CK-2) CK-MB (CK-2) Rel Index Total Protein Albumin TSH Urine WBC (Auto) Salicylates 04/10/17 04/10/17 04/10/17 01:53 05:33 17:40 WBC RBC Hgb Hct MCV MCH RDW Plt Count Lymph % (Auto) [place] % (Auto) Eos % (Auto) [place] # Seg Neutrophils % Seg Neuts % (Manual) Lymphocytes % (Manual) Seg Neutrophils # Seg Neutrophils # Man Lymphocytes # (Manual) APTT POC ABG pH ABG pH POC ABG pCO2 POC ABG pO2 ABG pO2 ABG HCO3 ABG Base Excess ABG Hemoglobin VBG pH Oxyhemoglobin Sodium Potassium Chloride Carbon Dioxide BUN Creatinine Glucose POC Glucose 261 H 277 H 304 H Lactic Acid Calcium AST ALT Alkaline Phosphatase CK-MB (CK-2) CK-MB (CK-2) Rel Index Total Protein Albumin TSH Urine WBC (Auto) Salicylates 04/10/17 04/11/17 04/11/17 21:29 05:28 14:02 WBC RBC Hgb Hct MCV MCH RDW Plt Count Lymph % (Auto) [place] % (Auto) Eos % (Auto) [place] # Seg Neutrophils % Seg Neuts % (Manual) Lymphocytes % (Manual) Seg Neutrophils # Seg Neutrophils # Man Lymphocytes # (Manual) APTT POC ABG pH ABG pH POC ABG pCO2 POC ABG pO2 ABG pO2 ABG HCO3 ABG Base Excess ABG Hemoglobin VBG pH Oxyhemoglobin Sodium Potassium Chloride Carbon Dioxide BUN Creatinine Glucose POC Glucose 361 H 204 H 236 H Lactic Acid Calcium AST ALT Alkaline Phosphatase CK-MB (CK-2) CK-MB (CK-2) Rel Index Total Protein Albumin TSH Urine WBC (Auto) Salicylates 04/11/17 04/12/17 04/12/17 21:43 05:00 11:53 WBC RBC Hgb Hct MCV MCH RDW Plt Count Lymph % (Auto) [place] % (Auto) Eos % (Auto) [place] # Seg Neutrophils % Seg Neuts % (Manual) Lymphocytes % (Manual) Seg Neutrophils # Seg Neutrophils # Man Lymphocytes # (Manual) APTT POC ABG pH ABG pH POC ABG pCO2 POC ABG pO2 ABG pO2 ABG HCO3 ABG Base Excess ABG Hemoglobin VBG pH Oxyhemoglobin Sodium Potassium Chloride Carbon Dioxide BUN Creatinine Glucose POC Glucose 287 H 294 H 265 H Lactic Acid Calcium AST ALT Alkaline Phosphatase CK-MB (CK-2) CK-MB (CK-2) Rel Index Total Protein Albumin TSH Urine WBC (Auto) Salicylates 04/12/17 04/12/17 04/13/17 21:21 23:44 06:05 WBC RBC Hgb Hct MCV MCH RDW Plt Count Lymph % (Auto) [place] % (Auto) Eos % (Auto) [place] # Seg Neutrophils % Seg Neuts % (Manual) Lymphocytes % (Manual) Seg Neutrophils # Seg Neutrophils # Man Lymphocytes # (Manual) APTT POC ABG pH ABG pH POC ABG pCO2 POC ABG pO2 ABG pO2 ABG HCO3 ABG Base Excess ABG Hemoglobin VBG pH Oxyhemoglobin Sodium Potassium Chloride Carbon Dioxide BUN Creatinine Glucose POC Glucose 289 H 348 H 326 H Lactic Acid Calcium AST ALT Alkaline Phosphatase CK-MB (CK-2) CK-MB (CK-2) Rel Index Total Protein Albumin TSH Urine WBC (Auto) Salicylates 04/13/17 04/13/17 04/14/17 13:54 21:15 05:49 WBC RBC Hgb Hct MCV MCH RDW Plt Count Lymph % (Auto) [place] % (Auto) Eos % (Auto) [place] # Seg Neutrophils % Seg Neuts % (Manual) Lymphocytes % (Manual) Seg Neutrophils # Seg Neutrophils # Man Lymphocytes # (Manual) APTT POC ABG pH ABG pH POC ABG pCO2 POC ABG pO2 ABG pO2 ABG HCO3 ABG Base Excess ABG Hemoglobin VBG pH Oxyhemoglobin Sodium Potassium Chloride Carbon Dioxide BUN Creatinine Glucose POC Glucose 326 H 263 H 319 H Lactic Acid Calcium AST ALT Alkaline Phosphatase CK-MB (CK-2) CK-MB (CK-2) Rel Index Total Protein Albumin TSH Urine WBC (Auto) Salicylates 04/14/17 04/14/17 04/15/17 13:26 23:13 14:24 WBC RBC Hgb Hct MCV MCH RDW Plt Count Lymph % (Auto) [place] % (Auto) Eos % (Auto) [place] # Seg Neutrophils % Seg Neuts % (Manual) Lymphocytes % (Manual) Seg Neutrophils # Seg Neutrophils # Man Lymphocytes # (Manual) APTT POC ABG pH ABG pH POC ABG pCO2 POC ABG pO2 ABG pO2 ABG HCO3 ABG Base Excess ABG Hemoglobin VBG pH Oxyhemoglobin Sodium Potassium Chloride Carbon Dioxide BUN Creatinine Glucose POC Glucose 207 H 365 H 308 H Lactic Acid Calcium AST ALT Alkaline Phosphatase CK-MB (CK-2) CK-MB (CK-2) Rel Index Total Protein Albumin TSH Urine WBC (Auto) Salicylates 04/15/17 04/15/17 04/15/17 21:00 22:18 23:12 WBC RBC Hgb Hct MCV MCH RDW Plt Count Lymph % (Auto) [place] % (Auto) Eos % (Auto) [place] # Seg Neutrophils % Seg Neuts % (Manual) Lymphocytes % (Manual) Seg Neutrophils # Seg Neutrophils # Man Lymphocytes # (Manual) APTT POC ABG pH ABG pH POC ABG pCO2 POC ABG pO2 ABG pO2 ABG HCO3 ABG Base Excess ABG Hemoglobin VBG pH Oxyhemoglobin Sodium Potassium Chloride Carbon Dioxide BUN Creatinine Glucose POC Glucose 407 H 287 H 325 H Lactic Acid Calcium AST ALT Alkaline Phosphatase CK-MB (CK-2) CK-MB (CK-2) Rel Index Total Protein Albumin TSH Urine WBC (Auto) Salicylates 04/16/17 04/16/17 04/16/17 05:30 10:07 14:26 WBC RBC Hgb Hct MCV MCH RDW Plt Count Lymph % (Auto) [place] % (Auto) Eos % (Auto) [place] # Seg Neutrophils % Seg Neuts % (Manual) Lymphocytes % (Manual) Seg Neutrophils # Seg Neutrophils # Man Lymphocytes # (Manual) APTT POC ABG pH ABG pH POC ABG pCO2 POC ABG pO2 ABG pO2 ABG HCO3 ABG Base Excess ABG Hemoglobin VBG pH Oxyhemoglobin Sodium Potassium Chloride Carbon Dioxide BUN Creatinine Glucose POC Glucose 304 H 217 H 344 H Lactic Acid Calcium AST ALT Alkaline Phosphatase CK-MB (CK-2) CK-MB (CK-2) Rel Index Total Protein Albumin TSH Urine WBC (Auto) Salicylates 04/16/17 04/17/17 04/17/17 21:25 05:12 14:19 WBC RBC Hgb Hct MCV MCH RDW Plt Count Lymph % (Auto) [place] % (Auto) Eos % (Auto) [place] # Seg Neutrophils % Seg Neuts % (Manual) Lymphocytes % (Manual) Seg Neutrophils # Seg Neutrophils # Man Lymphocytes # (Manual) APTT POC ABG pH ABG pH POC ABG pCO2 POC ABG pO2 ABG pO2 ABG HCO3 ABG Base Excess ABG Hemoglobin VBG pH Oxyhemoglobin Sodium Potassium Chloride Carbon Dioxide BUN Creatinine Glucose POC Glucose 305 H 233 H 324 H Lactic Acid Calcium AST ALT Alkaline Phosphatase CK-MB (CK-2) CK-MB (CK-2) Rel Index Total Protein Albumin TSH Urine WBC (Auto) Salicylates 04/17/17 04/18/17 04/18/17 21:42 06:21 14:08 WBC RBC Hgb Hct MCV MCH RDW Plt Count Lymph % (Auto) [place] % (Auto) Eos % (Auto) [place] # Seg Neutrophils % Seg Neuts % (Manual) Lymphocytes % (Manual) Seg Neutrophils # Seg Neutrophils # Man Lymphocytes # (Manual) APTT POC ABG pH ABG pH POC ABG pCO2 POC ABG pO2 ABG pO2 ABG HCO3 ABG Base Excess ABG Hemoglobin VBG pH Oxyhemoglobin Sodium Potassium Chloride Carbon Dioxide BUN Creatinine Glucose POC Glucose 270 H 308 H 290 H Lactic Acid Calcium AST ALT Alkaline Phosphatase CK-MB (CK-2) CK-MB (CK-2) Rel Index Total Protein Albumin TSH Urine WBC (Auto) Salicylates 04/18/17 04/19/17 04/19/17 21:50 05:20 13:59 WBC RBC Hgb Hct MCV MCH RDW Plt Count Lymph % (Auto) [place] % (Auto) Eos % (Auto) [place] # Seg Neutrophils % Seg Neuts % (Manual) Lymphocytes % (Manual) Seg Neutrophils # Seg Neutrophils # Man Lymphocytes # (Manual) APTT POC ABG pH ABG pH POC ABG pCO2 POC ABG pO2 ABG pO2 ABG HCO3 ABG Base Excess ABG Hemoglobin VBG pH Oxyhemoglobin Sodium Potassium Chloride Carbon Dioxide BUN Creatinine Glucose POC Glucose 167 H 372 H 321 H Lactic Acid Calcium AST ALT Alkaline Phosphatase CK-MB (CK-2) CK-MB (CK-2) Rel Index Total Protein Albumin TSH Urine WBC (Auto) Salicylates 04/19/17 04/20/17 04/20/17 21:16 14:18 21:34 WBC RBC Hgb Hct MCV MCH RDW Plt Count Lymph % (Auto) [place] % (Auto) Eos % (Auto) [place] # Seg Neutrophils % Seg Neuts % (Manual) Lymphocytes % (Manual) Seg Neutrophils # Seg Neutrophils # Man Lymphocytes # (Manual) APTT POC ABG pH ABG pH POC ABG pCO2 POC ABG pO2 ABG pO2 ABG HCO3 ABG Base Excess ABG Hemoglobin VBG pH Oxyhemoglobin Sodium Potassium Chloride Carbon Dioxide BUN Creatinine Glucose POC Glucose 182 H 218 H 121 H Lactic Acid Calcium AST ALT Alkaline Phosphatase CK-MB (CK-2) CK-MB (CK-2) Rel Index Total Protein Albumin TSH Urine WBC (Auto) Salicylates 04/21/17 04/21/17 04/21/17 00:08 05:16 12:41 WBC RBC Hgb Hct MCV MCH RDW Plt Count Lymph % (Auto) [place] % (Auto) Eos % (Auto) [place] # Seg Neutrophils % Seg Neuts % (Manual) Lymphocytes % (Manual) Seg Neutrophils # Seg Neutrophils # Man Lymphocytes # (Manual) APTT POC ABG pH ABG pH POC ABG pCO2 POC ABG pO2 ABG pO2 ABG HCO3 ABG Base Excess ABG Hemoglobin VBG pH Oxyhemoglobin Sodium Potassium Chloride Carbon Dioxide BUN Creatinine Glucose POC Glucose 128 H 120 H 216 H Lactic Acid Calcium AST ALT Alkaline Phosphatase CK-MB (CK-2) CK-MB (CK-2) Rel Index Total Protein Albumin TSH Urine WBC (Auto) Salicylates 04/21/17 04/22/17 04/22/17 23:40 14:12 23:38 WBC RBC Hgb Hct MCV MCH RDW Plt Count Lymph % (Auto) [place] % (Auto) Eos % (Auto) [place] # Seg Neutrophils % Seg Neuts % (Manual) Lymphocytes % (Manual) Seg Neutrophils # Seg Neutrophils # Man Lymphocytes # (Manual) APTT POC ABG pH ABG pH POC ABG pCO2 POC ABG pO2 ABG pO2 ABG HCO3 ABG Base Excess ABG Hemoglobin VBG pH Oxyhemoglobin Sodium Potassium Chloride Carbon Dioxide BUN Creatinine Glucose POC Glucose 157 H 242 H 117 H Lactic Acid Calcium AST ALT Alkaline Phosphatase CK-MB (CK-2) CK-MB (CK-2) Rel Index Total Protein Albumin TSH Urine WBC (Auto) Salicylates 04/23/17 04/23/17 04/24/17 05:18 14:01 03:24 WBC RBC Hgb Hct MCV MCH RDW Plt Count Lymph % (Auto) [place] % (Auto) Eos % (Auto) [place] # Seg Neutrophils % Seg Neuts % (Manual) Lymphocytes % (Manual) Seg Neutrophils # Seg Neutrophils # Man Lymphocytes # (Manual) APTT POC ABG pH ABG pH POC ABG pCO2 POC ABG pO2 ABG pO2 ABG HCO3 ABG Base Excess ABG Hemoglobin VBG pH Oxyhemoglobin Sodium Potassium Chloride Carbon Dioxide BUN Creatinine Glucose POC Glucose 163 H 57 L 177 H Lactic Acid Calcium AST ALT Alkaline Phosphatase CK-MB (CK-2) CK-MB (CK-2) Rel Index Total Protein Albumin TSH Urine WBC (Auto) Salicylates 04/24/17 04/24/17 04/24/17 04:00 04:00 06:33 WBC RBC Hgb 9.9 L Hct 30.0 L MCV 79 L MCH 26 L RDW 17.1 H Plt Count 625 H Lymph % (Auto) [place] % (Auto) 8.4 H Eos % (Auto) [place] # Seg Neutrophils % Seg Neuts % (Manual) Lymphocytes % (Manual) Seg Neutrophils # Seg Neutrophils # Man Lymphocytes # (Manual) APTT POC ABG pH ABG pH POC ABG pCO2 POC ABG pO2 ABG pO2 ABG HCO3 ABG Base Excess ABG Hemoglobin VBG pH Oxyhemoglobin Sodium 136 L Potassium Chloride 94.9 L Carbon Dioxide BUN 40 H Creatinine 0.6 L Glucose 176 H POC Glucose 230 H Lactic Acid Calcium AST 67 H ALT Alkaline Phosphatase 294 H CK-MB (CK-2) CK-MB (CK-2) Rel Index Total Protein 9.0 H Albumin 2.5 L TSH Urine WBC (Auto) Salicylates 04/24/17 04/25/17 04/25/17 13:50 00:22 02:55 WBC RBC 3.54 L Hgb 9.0 L Hct 27.9 L MCV 79 L MCH 26 L RDW 17.5 H Plt Count 574 H Lymph % (Auto) [place] % (Auto) 10.4 H Eos % (Auto) [place] # 1.0 H Seg Neutrophils % Seg Neuts % (Manual) Lymphocytes % (Manual) Seg Neutrophils # Seg Neutrophils # Man Lymphocytes # (Manual) APTT POC ABG pH ABG pH POC ABG pCO2 POC ABG pO2 ABG pO2 ABG HCO3 ABG Base Excess ABG Hemoglobin VBG pH Oxyhemoglobin Sodium Potassium Chloride Carbon Dioxide BUN Creatinine Glucose POC Glucose 116 H < 40 L Lactic Acid Calcium AST ALT Alkaline Phosphatase CK-MB (CK-2) CK-MB (CK-2) Rel Index Total Protein Albumin TSH Urine WBC (Auto) Salicylates 04/25/17 04/25/17 04/25/17 02:55 11:15 18:36 WBC RBC Hgb Hct MCV MCH RDW Plt Count Lymph % (Auto) [place] % (Auto) Eos % (Auto) [place] # Seg Neutrophils % Seg Neuts % (Manual) Lymphocytes % (Manual) Seg Neutrophils # Seg Neutrophils # Man Lymphocytes # (Manual) APTT POC ABG pH ABG pH POC ABG pCO2 POC ABG pO2 ABG pO2 ABG HCO3 ABG Base Excess ABG Hemoglobin VBG pH Oxyhemoglobin Sodium Potassium Chloride 96.2 L Carbon Dioxide BUN 39 H Creatinine 0.7 L Glucose 125 H POC Glucose 227 H 280 H Lactic Acid Calcium AST ALT Alkaline Phosphatase 247 H CK-MB (CK-2) CK-MB (CK-2) Rel Index Total Protein Albumin 2.7 L TSH Urine WBC (Auto) Salicylates 04/25/17 04/26/17 04/26/17 21:49 06:53 07:27 WBC RBC 3.61 L Hgb 9.1 L Hct 28.1 L MCV 78 L MCH 25 L RDW 17.4 H Plt Count 594 H Lymph % (Auto) [place] % (Auto) 9.2 H Eos % (Auto) [place] # 1.0 H Seg Neutrophils % 70.6 H Seg Neuts % (Manual) Lymphocytes % (Manual) Seg Neutrophils # Seg Neutrophils # Man Lymphocytes # (Manual) APTT POC ABG pH ABG pH POC ABG pCO2 POC ABG pO2 ABG pO2 ABG HCO3 ABG Base Excess ABG Hemoglobin VBG pH Oxyhemoglobin Sodium Potassium Chloride Carbon Dioxide BUN Creatinine Glucose POC Glucose 192 H 60 L Lactic Acid Calcium AST ALT Alkaline Phosphatase CK-MB (CK-2) CK-MB (CK-2) Rel Index Total Protein Albumin TSH Urine WBC (Auto) Salicylates 04/26/17 04/26/17 04/26/17 07:27 07:28 13:32 WBC RBC Hgb Hct MCV MCH RDW Plt Count Lymph % (Auto) [place] % (Auto) Eos % (Auto) [place] # Seg Neutrophils % Seg Neuts % (Manual) Lymphocytes % (Manual) Seg Neutrophils # Seg Neutrophils # Man Lymphocytes # (Manual) APTT POC ABG pH ABG pH POC ABG pCO2 POC ABG pO2 ABG pO2 ABG HCO3 ABG Base Excess ABG Hemoglobin VBG pH Oxyhemoglobin Sodium Potassium Chloride 95.0 L Carbon Dioxide BUN 42 H Creatinine 0.7 L Glucose 172 H POC Glucose 190 H 168 H Lactic Acid Calcium AST 56 H ALT Alkaline Phosphatase 274 H CK-MB (CK-2) CK-MB (CK-2) Rel Index Total Protein 8.9 H Albumin 2.7 L TSH Urine WBC (Auto) Salicylates 04/26/17 04/27/17 04/27/17 23:36 05:10 05:10 WBC RBC 3.49 L Hgb 8.7 L Hct 27.0 L MCV 77 L MCH 25 L RDW 17.4 H Plt Count 558 H Lymph % (Auto) [place] % (Auto) 9.6 H Eos % (Auto) [place] # Seg Neutrophils % Seg Neuts % (Manual) Lymphocytes % (Manual) Seg Neutrophils # Seg Neutrophils # Man Lymphocytes # (Manual) APTT POC ABG pH ABG pH POC ABG pCO2 POC ABG pO2 ABG pO2 ABG HCO3 ABG Base Excess ABG Hemoglobin VBG pH Oxyhemoglobin Sodium 133 L Potassium Chloride 93.5 L Carbon Dioxide BUN 40 H Creatinine 0.7 L Glucose 179 H POC Glucose 204 H Lactic Acid Calcium AST 73 H ALT 58 H Alkaline Phosphatase 294 H CK-MB (CK-2) CK-MB (CK-2) Rel Index Total Protein 8.7 H Albumin 2.4 L TSH Urine WBC (Auto) Salicylates 04/27/17 04/27/17 04/27/17 05:45 14:08 23:46 WBC RBC Hgb Hct MCV MCH RDW Plt Count Lymph % (Auto) [place] % (Auto) Eos % (Auto) [place] # Seg Neutrophils % Seg Neuts % (Manual) Lymphocytes % (Manual) Seg Neutrophils # Seg Neutrophils # Man Lymphocytes # (Manual) APTT POC ABG pH ABG pH POC ABG pCO2 POC ABG pO2 ABG pO2 ABG HCO3 ABG Base Excess ABG Hemoglobin VBG pH Oxyhemoglobin Sodium Potassium Chloride Carbon Dioxide BUN Creatinine Glucose POC Glucose 200 H 206 H 207 H Lactic Acid Calcium AST ALT Alkaline Phosphatase CK-MB (CK-2) CK-MB (CK-2) Rel Index Total Protein Albumin TSH Urine WBC (Auto) Salicylates 04/28/17 04/28/17 04/28/17 04:48 04:53 05:10 WBC RBC 3.48 L Hgb 8.8 L Hct 26.7 L MCV 77 L MCH 25 L RDW 17.0 H Plt Count 515 H Lymph % (Auto) [place] % (Auto) 8.4 H Eos % (Auto) [place] # Seg Neutrophils % 70.6 H Seg Neuts % (Manual) Lymphocytes % (Manual) Seg Neutrophils # Seg Neutrophils # Man Lymphocytes # (Manual) APTT POC ABG pH ABG pH POC ABG pCO2 POC ABG pO2 ABG pO2 ABG HCO3 ABG Base Excess ABG Hemoglobin VBG pH Oxyhemoglobin Sodium Potassium Chloride Carbon Dioxide BUN Creatinine Glucose POC Glucose 43 L 41 L Lactic Acid Calcium AST ALT Alkaline Phosphatase CK-MB (CK-2) CK-MB (CK-2) Rel Index Total Protein Albumin TSH Urine WBC (Auto) Salicylates 04/28/17 04/28/17 04/28/17 05:10 14:06 22:07 WBC RBC Hgb Hct MCV MCH RDW Plt Count Lymph % (Auto) [place] % (Auto) Eos % (Auto) [place] # Seg Neutrophils % Seg Neuts % (Manual) Lymphocytes % (Manual) Seg Neutrophils # Seg Neutrophils # Man Lymphocytes # (Manual) APTT POC ABG pH ABG pH POC ABG pCO2 POC ABG pO2 ABG pO2 ABG HCO3 ABG Base Excess ABG Hemoglobin VBG pH Oxyhemoglobin Sodium 136 L Potassium Chloride 95.2 L Carbon Dioxide BUN 42 H Creatinine Glucose 63 L POC Glucose 303 H 227 H Lactic Acid Calcium AST 45 H ALT Alkaline Phosphatase 271 H CK-MB (CK-2) CK-MB (CK-2) Rel Index Total Protein 8.9 H Albumin 2.5 L TSH Urine WBC (Auto) Salicylates 04/29/17 04/29/17 04/29/17 06:40 14:11 21:35 WBC RBC Hgb Hct MCV MCH RDW Plt Count Lymph % (Auto) [place] % (Auto) Eos % (Auto) [place] # Seg Neutrophils % Seg Neuts % (Manual) Lymphocytes % (Manual) Seg Neutrophils # Seg Neutrophils # Man Lymphocytes # (Manual) APTT POC ABG pH ABG pH POC ABG pCO2 POC ABG pO2 ABG pO2 ABG HCO3 ABG Base Excess ABG Hemoglobin VBG pH Oxyhemoglobin Sodium Potassium Chloride Carbon Dioxide BUN Creatinine Glucose POC Glucose 254 H 244 H 184 H Lactic Acid Calcium AST ALT Alkaline Phosphatase CK-MB (CK-2) CK-MB (CK-2) Rel Index Total Protein Albumin TSH Urine WBC (Auto) Salicylates 04/30/17 04/30/17 04/30/17 05:17 14:03 22:08 WBC RBC Hgb Hct MCV MCH RDW Plt Count Lymph % (Auto) [place] % (Auto) Eos % (Auto) [place] # Seg Neutrophils % Seg Neuts % (Manual) Lymphocytes % (Manual) Seg Neutrophils # Seg Neutrophils # Man Lymphocytes # (Manual) APTT POC ABG pH ABG pH POC ABG pCO2 POC ABG pO2 ABG pO2 ABG HCO3 ABG Base Excess ABG Hemoglobin VBG pH Oxyhemoglobin Sodium Potassium Chloride Carbon Dioxide BUN Creatinine Glucose POC Glucose 173 H 182 H 247 H Lactic Acid Calcium AST ALT Alkaline Phosphatase CK-MB (CK-2) CK-MB (CK-2) Rel Index Total Protein Albumin TSH Urine WBC (Auto) Salicylates 05/01/17 05/01/17 05/01/17 05:04 15:37 18:50 WBC RBC Hgb Hct MCV MCH RDW Plt Count Lymph % (Auto) [place] % (Auto) Eos % (Auto) [place] # Seg Neutrophils % Seg Neuts % (Manual) Lymphocytes % (Manual) Seg Neutrophils # Seg Neutrophils # Man Lymphocytes # (Manual) APTT POC ABG pH ABG pH POC ABG pCO2 POC ABG pO2 ABG pO2 ABG HCO3 ABG Base Excess ABG Hemoglobin VBG pH Oxyhemoglobin Sodium Potassium Chloride Carbon Dioxide BUN Creatinine Glucose POC Glucose 335 H 68 L 144 H Lactic Acid Calcium AST ALT Alkaline Phosphatase CK-MB (CK-2) CK-MB (CK-2) Rel Index Total Protein Albumin TSH Urine WBC (Auto) Salicylates 05/01/17 05/02/17 05/02/17 22:13 04:59 14:06 WBC RBC Hgb Hct MCV MCH RDW Plt Count Lymph % (Auto) [place] % (Auto) Eos % (Auto) [place] # Seg Neutrophils % Seg Neuts % (Manual) Lymphocytes % (Manual) Seg Neutrophils # Seg Neutrophils # Man Lymphocytes # (Manual) APTT POC ABG pH ABG pH POC ABG pCO2 POC ABG pO2 ABG pO2 ABG HCO3 ABG Base Excess ABG Hemoglobin VBG pH Oxyhemoglobin Sodium Potassium Chloride Carbon Dioxide BUN Creatinine Glucose POC Glucose 192 H 225 H 165 H Lactic Acid Calcium AST ALT Alkaline Phosphatase CK-MB (CK-2) CK-MB (CK-2) Rel Index Total Protein Albumin TSH Urine WBC (Auto) Salicylates 05/02/17 05/03/17 05/03/17 21:20 05:16 16:56 WBC RBC Hgb Hct MCV MCH RDW Plt Count Lymph % (Auto) [place] % (Auto) Eos % (Auto) [place] # Seg Neutrophils % Seg Neuts % (Manual) Lymphocytes % (Manual) Seg Neutrophils # Seg Neutrophils # Man Lymphocytes # (Manual) APTT POC ABG pH ABG pH POC ABG pCO2 POC ABG pO2 ABG pO2 ABG HCO3 ABG Base Excess ABG Hemoglobin VBG pH Oxyhemoglobin Sodium Potassium Chloride Carbon Dioxide BUN Creatinine Glucose POC Glucose 181 H 323 H 125 H Lactic Acid Calcium AST ALT Alkaline Phosphatase CK-MB (CK-2) CK-MB (CK-2) Rel Index Total Protein Albumin TSH Urine WBC (Auto) Salicylates 05/03/17 05/04/17 05/04/17 21:46 05:01 14:24 WBC RBC Hgb Hct MCV MCH RDW Plt Count Lymph % (Auto) [place] % (Auto) Eos % (Auto) [place] # Seg Neutrophils % Seg Neuts % (Manual) Lymphocytes % (Manual) Seg Neutrophils # Seg Neutrophils # Man Lymphocytes # (Manual) APTT POC ABG pH ABG pH POC ABG pCO2 POC ABG pO2 ABG pO2 ABG HCO3 ABG Base Excess ABG Hemoglobin VBG pH Oxyhemoglobin Sodium Potassium Chloride Carbon Dioxide BUN Creatinine Glucose POC Glucose 210 H 360 H 219 H Lactic Acid Calcium AST ALT Alkaline Phosphatase CK-MB (CK-2) CK-MB (CK-2) Rel Index Total Protein Albumin TSH Urine WBC (Auto) Salicylates 05/04/17 05/05/17 05/05/17 21:39 01:58 05:13 WBC RBC Hgb Hct MCV MCH RDW Plt Count Lymph % (Auto) [place] % (Auto) Eos % (Auto) [place] # Seg Neutrophils % Seg Neuts % (Manual) Lymphocytes % (Manual) Seg Neutrophils # Seg Neutrophils # Man Lymphocytes # (Manual) APTT POC ABG pH ABG pH POC ABG pCO2 POC ABG pO2 ABG pO2 ABG HCO3 ABG Base Excess ABG Hemoglobin VBG pH Oxyhemoglobin Sodium Potassium Chloride Carbon Dioxide BUN Creatinine Glucose POC Glucose 126 H 175 H 267 H Lactic Acid Calcium AST ALT Alkaline Phosphatase CK-MB (CK-2) CK-MB (CK-2) Rel Index Total Protein Albumin TSH Urine WBC (Auto) Salicylates 05/05/17 05/05/17 05/05/17 12:19 14:11 21:18 WBC RBC Hgb Hct MCV MCH RDW Plt Count Lymph % (Auto) [place] % (Auto) Eos % (Auto) [place] # Seg Neutrophils % Seg Neuts % (Manual) Lymphocytes % (Manual) Seg Neutrophils # Seg Neutrophils # Man Lymphocytes # (Manual) APTT POC ABG pH ABG pH POC ABG pCO2 POC ABG pO2 ABG pO2 ABG HCO3 ABG Base Excess ABG Hemoglobin VBG pH Oxyhemoglobin Sodium Potassium Chloride Carbon Dioxide BUN Creatinine Glucose POC Glucose 221 H 205 H 156 H Lactic Acid Calcium AST ALT Alkaline Phosphatase CK-MB (CK-2) CK-MB (CK-2) Rel Index Total Protein Albumin TSH Urine WBC (Auto) Salicylates 05/06/17 05/06/17 05/06/17 06:02 15:26 21:43 WBC RBC Hgb Hct MCV MCH RDW Plt Count Lymph % (Auto) [place] % (Auto) Eos % (Auto) [place] # Seg Neutrophils % Seg Neuts % (Manual) Lymphocytes % (Manual) Seg Neutrophils # Seg Neutrophils # Man Lymphocytes # (Manual) APTT POC ABG pH ABG pH POC ABG pCO2 POC ABG pO2 ABG pO2 ABG HCO3 ABG Base Excess ABG Hemoglobin VBG pH Oxyhemoglobin Sodium Potassium Chloride Carbon Dioxide BUN Creatinine Glucose POC Glucose 263 H 143 H 145 H Lactic Acid Calcium AST ALT Alkaline Phosphatase CK-MB (CK-2) CK-MB (CK-2) Rel Index Total Protein Albumin TSH Urine WBC (Auto) Salicylates 05/07/17 05/07/17 05/07/17 05:52 21:46 21:49 WBC RBC Hgb Hct MCV MCH RDW Plt Count Lymph % (Auto) [place] % (Auto) Eos % (Auto) [place] # Seg Neutrophils % Seg Neuts % (Manual) Lymphocytes % (Manual) Seg Neutrophils # Seg Neutrophils # Man Lymphocytes # (Manual) APTT POC ABG pH ABG pH POC ABG pCO2 POC ABG pO2 ABG pO2 ABG HCO3 ABG Base Excess ABG Hemoglobin VBG pH Oxyhemoglobin Sodium Potassium Chloride Carbon Dioxide BUN Creatinine Glucose POC Glucose 242 H < 40 L < 40 L Lactic Acid Calcium AST ALT Alkaline Phosphatase CK-MB (CK-2) CK-MB (CK-2) Rel Index Total Protein Albumin TSH Urine WBC (Auto) Salicylates 05/07/17 05/08/17 05/09/17 22:41 06:14 00:02 WBC RBC Hgb Hct MCV MCH RDW Plt Count Lymph % (Auto) [place] % (Auto) Eos % (Auto) [place] # Seg Neutrophils % Seg Neuts % (Manual) Lymphocytes % (Manual) Seg Neutrophils # Seg Neutrophils # Man Lymphocytes # (Manual) APTT POC ABG pH ABG pH POC ABG pCO2 POC ABG pO2 ABG pO2 ABG HCO3 ABG Base Excess ABG Hemoglobin VBG pH Oxyhemoglobin Sodium Potassium Chloride Carbon Dioxide BUN Creatinine Glucose POC Glucose 183 H 329 H 130 H Lactic Acid Calcium AST ALT Alkaline Phosphatase CK-MB (CK-2) CK-MB (CK-2) Rel Index Total Protein Albumin TSH Urine WBC (Auto) Salicylates 05/09/17 05/09/17 05/09/17 06:08 14:06 21:44 WBC RBC Hgb Hct MCV MCH RDW Plt Count Lymph % (Auto) [place] % (Auto) Eos % (Auto) [place] # Seg Neutrophils % Seg Neuts % (Manual) Lymphocytes % (Manual) Seg Neutrophils # Seg Neutrophils # Man Lymphocytes # (Manual) APTT POC ABG pH ABG pH POC ABG pCO2 POC ABG pO2 ABG pO2 ABG HCO3 ABG Base Excess ABG Hemoglobin VBG pH Oxyhemoglobin Sodium Potassium Chloride Carbon Dioxide BUN Creatinine Glucose POC Glucose 241 H 251 H 198 H Lactic Acid Calcium AST ALT Alkaline Phosphatase CK-MB (CK-2) CK-MB (CK-2) Rel Index Total Protein Albumin TSH Urine WBC (Auto) Salicylates 05/10/17 05/10/17 05/10/17 05:18 14:44 21:53 WBC RBC Hgb Hct MCV MCH RDW Plt Count Lymph % (Auto) [place] % (Auto) Eos % (Auto) [place] # Seg Neutrophils % Seg Neuts % (Manual) Lymphocytes % (Manual) Seg Neutrophils # Seg Neutrophils # Man Lymphocytes # (Manual) APTT POC ABG pH ABG pH POC ABG pCO2 POC ABG pO2 ABG pO2 ABG HCO3 ABG Base Excess ABG Hemoglobin VBG pH Oxyhemoglobin Sodium Potassium Chloride Carbon Dioxide BUN Creatinine Glucose POC Glucose 166 H 224 H 171 H Lactic Acid Calcium AST ALT Alkaline Phosphatase CK-MB (CK-2) CK-MB (CK-2) Rel Index Total Protein Albumin TSH Urine WBC (Auto) Salicylates 05/11/17 05/11/17 05/11/17 05:45 13:44 21:42 WBC RBC Hgb Hct MCV MCH RDW Plt Count Lymph % (Auto) [place] % (Auto) Eos % (Auto) [place] # Seg Neutrophils % Seg Neuts % (Manual) Lymphocytes % (Manual) Seg Neutrophils # Seg Neutrophils # Man Lymphocytes # (Manual) APTT POC ABG pH ABG pH POC ABG pCO2 POC ABG pO2 ABG pO2 ABG HCO3 ABG Base Excess ABG Hemoglobin VBG pH Oxyhemoglobin Sodium Potassium Chloride Carbon Dioxide BUN Creatinine Glucose POC Glucose 199 H 150 H 163 H Lactic Acid Calcium AST ALT Alkaline Phosphatase CK-MB (CK-2) CK-MB (CK-2) Rel Index Total Protein Albumin TSH Urine WBC (Auto) Salicylates 05/12/17 05/12/17 05/12/17 06:03 13:59 21:22 WBC RBC Hgb Hct MCV MCH RDW Plt Count Lymph % (Auto) [place] % (Auto) Eos % (Auto) [place] # Seg Neutrophils % Seg Neuts % (Manual) Lymphocytes % (Manual) Seg Neutrophils # Seg Neutrophils # Man Lymphocytes # (Manual) APTT POC ABG pH ABG pH POC ABG pCO2 POC ABG pO2 ABG pO2 ABG HCO3 ABG Base Excess ABG Hemoglobin VBG pH Oxyhemoglobin Sodium Potassium Chloride Carbon Dioxide BUN Creatinine Glucose POC Glucose 147 H 243 H 116 H Lactic Acid Calcium AST ALT Alkaline Phosphatase CK-MB (CK-2) CK-MB (CK-2) Rel Index Total Protein Albumin TSH Urine WBC (Auto) Salicylates 05/13/17 05/13/17 05/13/17 05:28 13:49 21:29 WBC RBC Hgb Hct MCV MCH RDW Plt Count Lymph % (Auto) [place] % (Auto) Eos % (Auto) [place] # Seg Neutrophils % Seg Neuts % (Manual) Lymphocytes % (Manual) Seg Neutrophils # Seg Neutrophils # Man Lymphocytes # (Manual) APTT POC ABG pH ABG pH POC ABG pCO2 POC ABG pO2 ABG pO2 ABG HCO3 ABG Base Excess ABG Hemoglobin VBG pH Oxyhemoglobin Sodium Potassium Chloride Carbon Dioxide BUN Creatinine Glucose POC Glucose 213 H 224 H 379 H Lactic Acid Calcium AST ALT Alkaline Phosphatase CK-MB (CK-2) CK-MB (CK-2) Rel Index Total Protein Albumin TSH Urine WBC (Auto) Salicylates 05/14/17 05/14/17 05/14/17 05:17 13:35 21:23 WBC RBC Hgb Hct MCV MCH RDW Plt Count Lymph % (Auto) [place] % (Auto) Eos % (Auto) [place] # Seg Neutrophils % Seg Neuts % (Manual) Lymphocytes % (Manual) Seg Neutrophils # Seg Neutrophils # Man Lymphocytes # (Manual) APTT POC ABG pH ABG pH POC ABG pCO2 POC ABG pO2 ABG pO2 ABG HCO3 ABG Base Excess ABG Hemoglobin VBG pH Oxyhemoglobin Sodium Potassium Chloride Carbon Dioxide BUN Creatinine Glucose POC Glucose 234 H 242 H 218 H Lactic Acid Calcium AST ALT Alkaline Phosphatase CK-MB (CK-2) CK-MB (CK-2) Rel Index Total Protein Albumin TSH Urine WBC (Auto) Salicylates 05/15/17 05/15/17 05/16/17 04:58 13:53 01:34 WBC RBC Hgb Hct MCV MCH RDW Plt Count Lymph % (Auto) [place] % (Auto) Eos % (Auto) [place] # Seg Neutrophils % Seg Neuts % (Manual) Lymphocytes % (Manual) Seg Neutrophils # Seg Neutrophils # Man Lymphocytes # (Manual) APTT POC ABG pH ABG pH POC ABG pCO2 POC ABG pO2 ABG pO2 ABG HCO3 ABG Base Excess ABG Hemoglobin VBG pH Oxyhemoglobin Sodium Potassium Chloride Carbon Dioxide BUN Creatinine Glucose POC Glucose 310 H 193 H 263 H Lactic Acid Calcium AST ALT Alkaline Phosphatase CK-MB (CK-2) CK-MB (CK-2) Rel Index Total Protein Albumin TSH Urine WBC (Auto) Salicylates 05/16/17 05/16/17 05/16/17 06:03 14:36 21:59 WBC RBC Hgb Hct MCV MCH RDW Plt Count Lymph % (Auto) [place] % (Auto) Eos % (Auto) [place] # Seg Neutrophils % Seg Neuts % (Manual) Lymphocytes % (Manual) Seg Neutrophils # Seg Neutrophils # Man Lymphocytes # (Manual) APTT POC ABG pH ABG pH POC ABG pCO2 POC ABG pO2 ABG pO2 ABG HCO3 ABG Base Excess ABG Hemoglobin VBG pH Oxyhemoglobin Sodium Potassium Chloride Carbon Dioxide BUN Creatinine Glucose POC Glucose 330 H 272 H 198 H Lactic Acid Calcium AST ALT Alkaline Phosphatase CK-MB (CK-2) CK-MB (CK-2) Rel Index Total Protein Albumin TSH Urine WBC (Auto) Salicylates 05/17/17 05/17/17 05/18/17 05:48 13:59 05:27 WBC RBC Hgb Hct MCV MCH RDW Plt Count Lymph % (Auto) [place] % (Auto) Eos % (Auto) [place] # Seg Neutrophils % Seg Neuts % (Manual) Lymphocytes % (Manual) Seg Neutrophils # Seg Neutrophils # Man Lymphocytes # (Manual) APTT POC ABG pH ABG pH POC ABG pCO2 POC ABG pO2 ABG pO2 ABG HCO3 ABG Base Excess ABG Hemoglobin VBG pH Oxyhemoglobin Sodium Potassium Chloride Carbon Dioxide BUN Creatinine Glucose POC Glucose 204 H 229 H 152 H Lactic Acid Calcium AST ALT Alkaline Phosphatase CK-MB (CK-2) CK-MB (CK-2) Rel Index Total Protein Albumin TSH Urine WBC (Auto) Salicylates 05/18/17 05/18/17 05/19/17 14:16 21:27 04:59 WBC RBC Hgb Hct MCV MCH RDW Plt Count Lymph % (Auto) [place] % (Auto) Eos % (Auto) [place] # Seg Neutrophils % Seg Neuts % (Manual) Lymphocytes % (Manual) Seg Neutrophils # Seg Neutrophils # Man Lymphocytes # (Manual) APTT POC ABG pH ABG pH POC ABG pCO2 POC ABG pO2 ABG pO2 ABG HCO3 ABG Base Excess ABG Hemoglobin VBG pH Oxyhemoglobin Sodium Potassium Chloride Carbon Dioxide BUN Creatinine Glucose POC Glucose 217 H 202 H 131 H Lactic Acid Calcium AST ALT Alkaline Phosphatase CK-MB (CK-2) CK-MB (CK-2) Rel Index Total Protein Albumin TSH Urine WBC (Auto) Salicylates 05/19/17 05/20/17 05/20/17 14:57 00:11 05:45 WBC RBC Hgb Hct MCV MCH RDW Plt Count Lymph % (Auto) [place] % (Auto) Eos % (Auto) [place] # Seg Neutrophils % Seg Neuts % (Manual) Lymphocytes % (Manual) Seg Neutrophils # Seg Neutrophils # Man Lymphocytes # (Manual) APTT POC ABG pH ABG pH POC ABG pCO2 POC ABG pO2 ABG pO2 ABG HCO3 ABG Base Excess ABG Hemoglobin VBG pH Oxyhemoglobin Sodium Potassium Chloride Carbon Dioxide BUN Creatinine Glucose POC Glucose 216 H 197 H 195 H Lactic Acid Calcium AST ALT Alkaline Phosphatase CK-MB (CK-2) CK-MB (CK-2) Rel Index Total Protein Albumin TSH Urine WBC (Auto) Salicylates 05/20/17 05/20/17 05/21/17 13:29 22:11 05:43 WBC RBC Hgb Hct MCV MCH RDW Plt Count Lymph % (Auto) [place] % (Auto) Eos % (Auto) [place] # Seg Neutrophils % Seg Neuts % (Manual) Lymphocytes % (Manual) Seg Neutrophils # Seg Neutrophils # Man Lymphocytes # (Manual) APTT POC ABG pH ABG pH POC ABG pCO2 POC ABG pO2 ABG pO2 ABG HCO3 ABG Base Excess ABG Hemoglobin VBG pH Oxyhemoglobin Sodium Potassium Chloride Carbon Dioxide BUN Creatinine Glucose POC Glucose 138 H 242 H 228 H Lactic Acid Calcium AST ALT Alkaline Phosphatase CK-MB (CK-2) CK-MB (CK-2) Rel Index Total Protein Albumin TSH Urine WBC (Auto) Salicylates 05/21/17 05/21/17 05/22/17 14:06 21:49 05:31 WBC RBC Hgb Hct MCV MCH RDW Plt Count Lymph % (Auto) [place] % (Auto) Eos % (Auto) [place] # Seg Neutrophils % Seg Neuts % (Manual) Lymphocytes % (Manual) Seg Neutrophils # Seg Neutrophils # Man Lymphocytes # (Manual) APTT POC ABG pH ABG pH POC ABG pCO2 POC ABG pO2 ABG pO2 ABG HCO3 ABG Base Excess ABG Hemoglobin VBG pH Oxyhemoglobin Sodium Potassium Chloride Carbon Dioxide BUN Creatinine Glucose POC Glucose 191 H 166 H 184 H Lactic Acid Calcium AST ALT Alkaline Phosphatase CK-MB (CK-2) CK-MB (CK-2) Rel Index Total Protein Albumin TSH Urine WBC (Auto) Salicylates 05/22/17 05/22/17 05/23/17 14:03 21:45 05:41 WBC RBC Hgb Hct MCV MCH RDW Plt Count Lymph % (Auto) [place] % (Auto) Eos % (Auto) [place] # Seg Neutrophils % Seg Neuts % (Manual) Lymphocytes % (Manual) Seg Neutrophils # Seg Neutrophils # Man Lymphocytes # (Manual) APTT POC ABG pH ABG pH POC ABG pCO2 POC ABG pO2 ABG pO2 ABG HCO3 ABG Base Excess ABG Hemoglobin VBG pH Oxyhemoglobin Sodium Potassium Chloride Carbon Dioxide BUN Creatinine Glucose POC Glucose 206 H 178 H 206 H Lactic Acid Calcium AST ALT Alkaline Phosphatase CK-MB (CK-2) CK-MB (CK-2) Rel Index Total Protein Albumin TSH Urine WBC (Auto) Salicylates 05/23/17 05/23/17 05/24/17 14:09 22:48 05:21 WBC RBC Hgb Hct MCV MCH RDW Plt Count Lymph % (Auto) [place] % (Auto) Eos % (Auto) [place] # Seg Neutrophils % Seg Neuts % (Manual) Lymphocytes % (Manual) Seg Neutrophils # Seg Neutrophils # Man Lymphocytes # (Manual) APTT POC ABG pH ABG pH POC ABG pCO2 POC ABG pO2 ABG pO2 ABG HCO3 ABG Base Excess ABG Hemoglobin VBG pH Oxyhemoglobin Sodium Potassium Chloride Carbon Dioxide BUN Creatinine Glucose POC Glucose 148 H 181 H 162 H Lactic Acid Calcium AST ALT Alkaline Phosphatase CK-MB (CK-2) CK-MB (CK-2) Rel Index Total Protein Albumin TSH Urine WBC (Auto) Salicylates 05/24/17 05/24/17 05/25/17 13:32 21:55 06:49 WBC RBC Hgb Hct MCV MCH RDW Plt Count Lymph % (Auto) [place] % (Auto) Eos % (Auto) [place] # Seg Neutrophils % Seg Neuts % (Manual) Lymphocytes % (Manual) Seg Neutrophils # Seg Neutrophils # Man Lymphocytes # (Manual) APTT POC ABG pH ABG pH POC ABG pCO2 POC ABG pO2 ABG pO2 ABG HCO3 ABG Base Excess ABG Hemoglobin VBG pH Oxyhemoglobin Sodium Potassium Chloride Carbon Dioxide BUN Creatinine Glucose POC Glucose 216 H 144 H 151 H Lactic Acid Calcium AST ALT Alkaline Phosphatase CK-MB (CK-2) CK-MB (CK-2) Rel Index Total Protein Albumin TSH Urine WBC (Auto) Salicylates 05/25/17 05/25/17 05/26/17 15:32 21:58 05:46 WBC RBC Hgb Hct MCV MCH RDW Plt Count Lymph % (Auto) [place] % (Auto) Eos % (Auto) [place] # Seg Neutrophils % Seg Neuts % (Manual) Lymphocytes % (Manual) Seg Neutrophils # Seg Neutrophils # Man Lymphocytes # (Manual) APTT POC ABG pH ABG pH POC ABG pCO2 POC ABG pO2 ABG pO2 ABG HCO3 ABG Base Excess ABG Hemoglobin VBG pH Oxyhemoglobin Sodium Potassium Chloride Carbon Dioxide BUN Creatinine Glucose POC Glucose 136 H 160 H 225 H Lactic Acid Calcium AST ALT Alkaline Phosphatase CK-MB (CK-2) CK-MB (CK-2) Rel Index Total Protein Albumin TSH Urine WBC (Auto) Salicylates 05/26/17 05/27/17 05/27/17 22:32 05:52 14:47 WBC RBC Hgb Hct MCV MCH RDW Plt Count Lymph % (Auto) [place] % (Auto) Eos % (Auto) [place] # Seg Neutrophils % Seg Neuts % (Manual) Lymphocytes % (Manual) Seg Neutrophils # Seg Neutrophils # Man Lymphocytes # (Manual) APTT POC ABG pH ABG pH POC ABG pCO2 POC ABG pO2 ABG pO2 ABG HCO3 ABG Base Excess ABG Hemoglobin VBG pH Oxyhemoglobin Sodium Potassium Chloride Carbon Dioxide BUN Creatinine Glucose POC Glucose 161 H 197 H 117 H Lactic Acid Calcium AST ALT Alkaline Phosphatase CK-MB (CK-2) CK-MB (CK-2) Rel Index Total Protein Albumin TSH Urine WBC (Auto) Salicylates 05/27/17 05/28/17 05/28/17 21:49 05:54 06:49 WBC RBC Hgb Hct MCV MCH RDW Plt Count Lymph % (Auto) [place] % (Auto) Eos % (Auto) [place] # Seg Neutrophils % Seg Neuts % (Manual) Lymphocytes % (Manual) Seg Neutrophils # Seg Neutrophils # Man Lymphocytes # (Manual) APTT POC ABG pH ABG pH POC ABG pCO2 POC ABG pO2 ABG pO2 ABG HCO3 ABG Base Excess ABG Hemoglobin VBG pH Oxyhemoglobin Sodium Potassium Chloride Carbon Dioxide BUN Creatinine Glucose POC Glucose 148 H 60 L 59 L Lactic Acid Calcium AST ALT Alkaline Phosphatase CK-MB (CK-2) CK-MB (CK-2) Rel Index Total Protein Albumin TSH Urine WBC (Auto) Salicylates 05/28/17 05/28/17 05/28/17 14:32 16:04 21:43 WBC RBC Hgb Hct MCV MCH RDW Plt Count Lymph % (Auto) [place] % (Auto) Eos % (Auto) [place] # Seg Neutrophils % Seg Neuts % (Manual) Lymphocytes % (Manual) Seg Neutrophils # Seg Neutrophils # Man Lymphocytes # (Manual) APTT POC ABG pH ABG pH POC ABG pCO2 POC ABG pO2 ABG pO2 ABG HCO3 ABG Base Excess ABG Hemoglobin VBG pH Oxyhemoglobin Sodium Potassium Chloride Carbon Dioxide BUN Creatinine Glucose POC Glucose 55 L 109 H 235 H Lactic Acid Calcium AST ALT Alkaline Phosphatase CK-MB (CK-2) CK-MB (CK-2) Rel Index Total Protein Albumin TSH Urine WBC (Auto) Salicylates 05/29/17 05/29/17 05/29/17 06:14 13:23 22:46 WBC RBC Hgb Hct MCV MCH RDW Plt Count Lymph % (Auto) [place] % (Auto) Eos % (Auto) [place] # Seg Neutrophils % Seg Neuts % (Manual) Lymphocytes % (Manual) Seg Neutrophils # Seg Neutrophils # Man Lymphocytes # (Manual) APTT POC ABG pH ABG pH POC ABG pCO2 POC ABG pO2 ABG pO2 ABG HCO3 ABG Base Excess ABG Hemoglobin VBG pH Oxyhemoglobin Sodium Potassium Chloride Carbon Dioxide BUN Creatinine Glucose POC Glucose 260 H 173 H 151 H Lactic Acid Calcium AST ALT Alkaline Phosphatase CK-MB (CK-2) CK-MB (CK-2) Rel Index Total Protein Albumin TSH Urine WBC (Auto) Salicylates 05/30/17 05/30/17 05/31/17 05:20 13:56 14:56 WBC RBC Hgb Hct MCV MCH RDW Plt Count Lymph % (Auto) [place] % (Auto) Eos % (Auto) [place] # Seg Neutrophils % Seg Neuts % (Manual) Lymphocytes % (Manual) Seg Neutrophils # Seg Neutrophils # Man Lymphocytes # (Manual) APTT POC ABG pH ABG pH POC ABG pCO2 POC ABG pO2 ABG pO2 ABG HCO3 ABG Base Excess ABG Hemoglobin VBG pH Oxyhemoglobin Sodium Potassium Chloride Carbon Dioxide BUN Creatinine Glucose POC Glucose 250 H 187 H 139 H Lactic Acid Calcium AST ALT Alkaline Phosphatase CK-MB (CK-2) CK-MB (CK-2) Rel Index Total Protein Albumin TSH Urine WBC (Auto) Salicylates 06/01/17 06/01/17 06/01/17 05:37 13:10 21:34 WBC RBC Hgb Hct MCV MCH RDW Plt Count Lymph % (Auto) [place] % (Auto) Eos % (Auto) [place] # Seg Neutrophils % Seg Neuts % (Manual) Lymphocytes % (Manual) Seg Neutrophils # Seg Neutrophils # Man Lymphocytes # (Manual) APTT POC ABG pH ABG pH POC ABG pCO2 POC ABG pO2 ABG pO2 ABG HCO3 ABG Base Excess ABG Hemoglobin VBG pH Oxyhemoglobin Sodium Potassium Chloride Carbon Dioxide BUN Creatinine Glucose POC Glucose 207 H 136 H 109 H Lactic Acid Calcium AST ALT Alkaline Phosphatase CK-MB (CK-2) CK-MB (CK-2) Rel Index Total Protein Albumin TSH Urine WBC (Auto) Salicylates 06/02/17 06/02/17 06/03/17 05:15 15:44 00:49 WBC RBC Hgb Hct MCV MCH RDW Plt Count Lymph % (Auto) [place] % (Auto) Eos % (Auto) [place] # Seg Neutrophils % Seg Neuts % (Manual) Lymphocytes % (Manual) Seg Neutrophils # Seg Neutrophils # Man Lymphocytes # (Manual) APTT POC ABG pH ABG pH POC ABG pCO2 POC ABG pO2 ABG pO2 ABG HCO3 ABG Base Excess ABG Hemoglobin VBG pH Oxyhemoglobin Sodium Potassium Chloride Carbon Dioxide BUN Creatinine Glucose POC Glucose 121 H 229 H 134 H Lactic Acid Calcium AST ALT Alkaline Phosphatase CK-MB (CK-2) CK-MB (CK-2) Rel Index Total Protein Albumin TSH Urine WBC (Auto) Salicylates 06/03/17 06/03/17 06/04/17 13:46 22:42 05:37 WBC RBC Hgb Hct MCV MCH RDW Plt Count Lymph % (Auto) [place] % (Auto) Eos % (Auto) [place] # Seg Neutrophils % Seg Neuts % (Manual) Lymphocytes % (Manual) Seg Neutrophils # Seg Neutrophils # Man Lymphocytes # (Manual) APTT POC ABG pH ABG pH POC ABG pCO2 POC ABG pO2 ABG pO2 ABG HCO3 ABG Base Excess ABG Hemoglobin VBG pH Oxyhemoglobin Sodium Potassium Chloride Carbon Dioxide BUN Creatinine Glucose POC Glucose 230 H 158 H 144 H Lactic Acid Calcium AST ALT Alkaline Phosphatase CK-MB (CK-2) CK-MB (CK-2) Rel Index Total Protein Albumin TSH Urine WBC (Auto) Salicylates 06/04/17 06/04/17 06/04/17 14:04 22:17 23:18 WBC RBC Hgb Hct MCV MCH RDW Plt Count Lymph % (Auto) [place] % (Auto) Eos % (Auto) [place] # Seg Neutrophils % Seg Neuts % (Manual) Lymphocytes % (Manual) Seg Neutrophils # Seg Neutrophils # Man Lymphocytes # (Manual) APTT POC ABG pH ABG pH POC ABG pCO2 POC ABG pO2 ABG pO2 ABG HCO3 ABG Base Excess ABG Hemoglobin VBG pH Oxyhemoglobin Sodium Potassium Chloride Carbon Dioxide BUN Creatinine Glucose POC Glucose 168 H 53 L 121 H Lactic Acid Calcium AST ALT Alkaline Phosphatase CK-MB (CK-2) CK-MB (CK-2) Rel Index Total Protein Albumin TSH Urine WBC (Auto) Salicylates 06/05/17 06/05/17 06/05/17 05:27 14:19 21:35 WBC RBC Hgb Hct MCV MCH RDW Plt Count Lymph % (Auto) [place] % (Auto) Eos % (Auto) [place] # Seg Neutrophils % Seg Neuts % (Manual) Lymphocytes % (Manual) Seg Neutrophils # Seg Neutrophils # Man Lymphocytes # (Manual) APTT POC ABG pH ABG pH POC ABG pCO2 POC ABG pO2 ABG pO2 ABG HCO3 ABG Base Excess ABG Hemoglobin VBG pH Oxyhemoglobin Sodium Potassium Chloride Carbon Dioxide BUN Creatinine Glucose POC Glucose 157 H 130 H 143 H Lactic Acid Calcium AST ALT Alkaline Phosphatase CK-MB (CK-2) CK-MB (CK-2) Rel Index Total Protein Albumin TSH Urine WBC (Auto) Salicylates 06/06/17 06/06/17 06/06/17 05:44 14:33 21:54 WBC RBC Hgb Hct MCV MCH RDW Plt Count Lymph % (Auto) [place] % (Auto) Eos % (Auto) [place] # Seg Neutrophils % Seg Neuts % (Manual) Lymphocytes % (Manual) Seg Neutrophils # Seg Neutrophils # Man Lymphocytes # (Manual) APTT POC ABG pH ABG pH POC ABG pCO2 POC ABG pO2 ABG pO2 ABG HCO3 ABG Base Excess ABG Hemoglobin VBG pH Oxyhemoglobin Sodium Potassium Chloride Carbon Dioxide BUN Creatinine Glucose POC Glucose 184 H 171 H 135 H Lactic Acid Calcium AST ALT Alkaline Phosphatase CK-MB (CK-2) CK-MB (CK-2) Rel Index Total Protein Albumin TSH Urine WBC (Auto) Salicylates 06/07/17 06/07/17 06/07/17 06:23 14:32 15:37 WBC RBC Hgb Hct MCV MCH RDW Plt Count Lymph % (Auto) [place] % (Auto) Eos % (Auto) [place] # Seg Neutrophils % Seg Neuts % (Manual) Lymphocytes % (Manual) Seg Neutrophils # Seg Neutrophils # Man Lymphocytes # (Manual) APTT POC ABG pH ABG pH POC ABG pCO2 POC ABG pO2 ABG pO2 ABG HCO3 ABG Base Excess ABG Hemoglobin VBG pH Oxyhemoglobin Sodium Potassium Chloride Carbon Dioxide BUN Creatinine Glucose POC Glucose 162 H 174 H 176 H Lactic Acid Calcium AST ALT Alkaline Phosphatase CK-MB (CK-2) CK-MB (CK-2) Rel Index Total Protein Albumin TSH Urine WBC (Auto) Salicylates 06/07/17 06/08/17 06/08/17 23:18 05:41 13:23 WBC RBC Hgb Hct MCV MCH RDW Plt Count Lymph % (Auto) [place] % (Auto) Eos % (Auto) [place] # Seg Neutrophils % Seg Neuts % (Manual) Lymphocytes % (Manual) Seg Neutrophils # Seg Neutrophils # Man Lymphocytes # (Manual) APTT POC ABG pH ABG pH POC ABG pCO2 POC ABG pO2 ABG pO2 ABG HCO3 ABG Base Excess ABG Hemoglobin VBG pH Oxyhemoglobin Sodium Potassium Chloride Carbon Dioxide BUN Creatinine Glucose POC Glucose 119 H 197 H 197 H Lactic Acid Calcium AST ALT Alkaline Phosphatase CK-MB (CK-2) CK-MB (CK-2) Rel Index Total Protein Albumin TSH Urine WBC (Auto) Salicylates 06/08/17 06/09/17 06/09/17 21:34 05:54 15:07 WBC RBC Hgb Hct MCV MCH RDW Plt Count Lymph % (Auto) [place] % (Auto) Eos % (Auto) [place] # Seg Neutrophils % Seg Neuts % (Manual) Lymphocytes % (Manual) Seg Neutrophils # Seg Neutrophils # Man Lymphocytes # (Manual) APTT POC ABG pH ABG pH POC ABG pCO2 POC ABG pO2 ABG pO2 ABG HCO3 ABG Base Excess ABG Hemoglobin VBG pH Oxyhemoglobin Sodium Potassium Chloride Carbon Dioxide BUN Creatinine Glucose POC Glucose 50 L 140 H 227 H Lactic Acid Calcium AST ALT Alkaline Phosphatase CK-MB (CK-2) CK-MB (CK-2) Rel Index Total Protein Albumin TSH Urine WBC (Auto) Salicylates 06/09/17 06/10/17 06/10/17 20:39 05:15 13:22 WBC RBC Hgb Hct MCV MCH RDW Plt Count Lymph % (Auto) [place] % (Auto) Eos % (Auto) [place] # Seg Neutrophils % Seg Neuts % (Manual) Lymphocytes % (Manual) Seg Neutrophils # Seg Neutrophils # Man Lymphocytes # (Manual) APTT POC ABG pH ABG pH POC ABG pCO2 POC ABG pO2 ABG pO2 ABG HCO3 ABG Base Excess ABG Hemoglobin VBG pH Oxyhemoglobin Sodium Potassium Chloride Carbon Dioxide BUN Creatinine Glucose POC Glucose 280 H 206 H 153 H Lactic Acid Calcium AST ALT Alkaline Phosphatase CK-MB (CK-2) CK-MB (CK-2) Rel Index Total Protein Albumin TSH Urine WBC (Auto) Salicylates 06/11/17 06/11/17 06/11/17 00:08 05:36 12:15 WBC RBC Hgb Hct MCV MCH RDW Plt Count Lymph % (Auto) [place] % (Auto) Eos % (Auto) [place] # Seg Neutrophils % Seg Neuts % (Manual) Lymphocytes % (Manual) Seg Neutrophils # Seg Neutrophils # Man Lymphocytes # (Manual) APTT POC ABG pH ABG pH POC ABG pCO2 POC ABG pO2 ABG pO2 ABG HCO3 ABG Base Excess ABG Hemoglobin VBG pH Oxyhemoglobin Sodium Potassium Chloride Carbon Dioxide BUN Creatinine Glucose POC Glucose 136 H 158 H 172 H Lactic Acid Calcium AST ALT Alkaline Phosphatase CK-MB (CK-2) CK-MB (CK-2) Rel Index Total Protein Albumin TSH Urine WBC (Auto) Salicylates 06/11/17 06/12/17 06/12/17 21:41 05:48 15:57 WBC RBC Hgb Hct MCV MCH RDW Plt Count Lymph % (Auto) [place] % (Auto) Eos % (Auto) [place] # Seg Neutrophils % Seg Neuts % (Manual) Lymphocytes % (Manual) Seg Neutrophils # Seg Neutrophils # Man Lymphocytes # (Manual) APTT POC ABG pH ABG pH POC ABG pCO2 POC ABG pO2 ABG pO2 ABG HCO3 ABG Base Excess ABG Hemoglobin VBG pH Oxyhemoglobin Sodium Potassium Chloride Carbon Dioxide BUN Creatinine Glucose POC Glucose 145 H 202 H 117 H Lactic Acid Calcium AST ALT Alkaline Phosphatase CK-MB (CK-2) CK-MB (CK-2) Rel Index Total Protein Albumin TSH Urine WBC (Auto) Salicylates 06/12/17 06/13/17 06/13/17 21:31 05:30 13:52 WBC RBC Hgb Hct MCV MCH RDW Plt Count Lymph % (Auto) [place] % (Auto) Eos % (Auto) [place] # Seg Neutrophils % Seg Neuts % (Manual) Lymphocytes % (Manual) Seg Neutrophils # Seg Neutrophils # Man Lymphocytes # (Manual) APTT POC ABG pH ABG pH POC ABG pCO2 POC ABG pO2 ABG pO2 ABG HCO3 ABG Base Excess ABG Hemoglobin VBG pH Oxyhemoglobin Sodium Potassium Chloride Carbon Dioxide BUN Creatinine Glucose POC Glucose 124 H 124 H 177 H Lactic Acid Calcium AST ALT Alkaline Phosphatase CK-MB (CK-2) CK-MB (CK-2) Rel Index Total Protein Albumin TSH Urine WBC (Auto) Salicylates 06/13/17 06/14/17 06/14/17 21:11 13:25 21:19 WBC RBC Hgb Hct MCV MCH RDW Plt Count Lymph % (Auto) [place] % (Auto) Eos % (Auto) [place] # Seg Neutrophils % Seg Neuts % (Manual) Lymphocytes % (Manual) Seg Neutrophils # Seg Neutrophils # Man Lymphocytes # (Manual) APTT POC ABG pH ABG pH POC ABG pCO2 POC ABG pO2 ABG pO2 ABG HCO3 ABG Base Excess ABG Hemoglobin VBG pH Oxyhemoglobin Sodium Potassium Chloride Carbon Dioxide BUN Creatinine Glucose POC Glucose 153 H 154 H 110 H Lactic Acid Calcium AST ALT Alkaline Phosphatase CK-MB (CK-2) CK-MB (CK-2) Rel Index Total Protein Albumin TSH Urine WBC (Auto) Salicylates 06/15/17 06/15/17 06/15/17 05:33 05:36 14:53 WBC RBC Hgb Hct MCV MCH RDW Plt Count Lymph % (Auto) [place] % (Auto) Eos % (Auto) [place] # Seg Neutrophils % Seg Neuts % (Manual) Lymphocytes % (Manual) Seg Neutrophils # Seg Neutrophils # Man Lymphocytes # (Manual) APTT POC ABG pH ABG pH POC ABG pCO2 POC ABG pO2 ABG pO2 ABG HCO3 ABG Base Excess ABG Hemoglobin VBG pH Oxyhemoglobin Sodium Potassium Chloride Carbon Dioxide BUN Creatinine Glucose POC Glucose 44 L 45 L 109 H Lactic Acid Calcium AST ALT Alkaline Phosphatase CK-MB (CK-2) CK-MB (CK-2) Rel Index Total Protein Albumin TSH Urine WBC (Auto) Salicylates 06/15/17 06/16/17 21:33 13:33 WBC RBC Hgb Hct MCV MCH RDW Plt Count Lymph % (Auto) [place] % (Auto) Eos % (Auto) [place] # Seg Neutrophils % Seg Neuts % (Manual) Lymphocytes % (Manual) Seg Neutrophils # Seg Neutrophils # Man Lymphocytes # (Manual) APTT POC ABG pH ABG pH POC ABG pCO2 POC ABG pO2 ABG pO2 ABG HCO3 ABG Base Excess ABG Hemoglobin VBG pH Oxyhemoglobin Sodium Potassium Chloride Carbon Dioxide BUN Creatinine Glucose POC Glucose 156 H 153 H Lactic Acid Calcium AST ALT Alkaline Phosphatase CK-MB (CK-2) CK-MB (CK-2) Rel Index Total Protein Albumin TSH Urine WBC (Auto) Salicylates
[2017-06-17] MEDS: SIMPLE SYRUP FEEDTUBE PRN (23:44)
[2017-06-18] MEDS: SIMPLE SYRUP FEEDTUBE PRN ×3 (00:18→15:06)
[2017-06-18] MEDS: HumuLIN R SUB-Q SCH ×4 (06:46→21:12)
[2017-06-18] MEDS: IMODIUM PO PRN ×3 (06:48→19:49)
[2017-06-18] MEDS: HEPARIN SUB-Q SCH ×2 (10:06→21:08)
[2017-06-18] MEDS: PEPCID PO SCH (10:06)
[2017-06-18] MEDS: LEVEMIR (NF) SUB-Q SCH (10:07)
[2017-06-19] MEDS: LEVEMIR (NF) SUB-Q SCH (09:00)
[2017-06-19] MEDS: PEPCID PO SCH ×2 (10:26→22:00)
[2017-06-19] MEDS: HEPARIN SUB-Q SCH ×2 (10:26→22:00)
[2017-06-19] MEDS: IMODIUM PO PRN ×2 (10:27→19:51)
--- NOTE | 2017-06-19 13:34 | Progress Note ---
Assessment and Plan Assessment and plan: Hypoglycemic brain injury. Patient was found hypoglycemic. He is now in coma, vegetative state, Unresponsive Persistent vegetative state. Supportive care Metabolic encephalopathy due to hypoglycemia Hypoglycemia/hypothermia, resolved Acute respiratory failure. on ventilator. Hyponatremia. Now resolved. Hypothyroidism Diabetes mellitus type 2. Check fingerstick glucose q 6h. Continue Levemir subcut daily Hypertension. BP stable Leukocytosis due to UTI. UTI with ESBL. Disposition. Comfort care, no escalation of care; Poor prognosis Unable to locate family. Guardianship has been obtained but no authority to withdraw care. Continue supportive care. History Interval history: no new issues overnight 51 YO Male with CKD,HTN, DM presents to ED for evaluation. Pt unable to provide history. Pt history taken from ED staff, and medical records. Pt found down and unresponsive by his neighbor, who subsequently called EMS. Upon arrival, patient found unresponsive on the floor with a serum glucose of 21, and covered with ants with insulin syringes around him and a bottle of atenolol which still had many pills remaining, patient has a known history of alcohol abuse and delirium tremens. The patient was administered D5 approximate 500 mls during transport without change in mental status/level of consciousness. Pt seen and evaluated in ED was was found to be unable to protect his airway. Pt intubated and placed on vent support. Pt found to have evidence of hypothyroidism. He was started on Synthroid. He has since been in the ICU. The patient continued to deteriorate. He is in this grade 4 coma, brain imaging does not show any reversible cause. The patient remains in a persistent vegetative states. Sepsis has been ruled out. respiratory services manager try to locate family, even spoke to the family who he lives with. They themselves were unaware of any family members. After ethics committee meeting on the patient, the decision was made to make him DO NOT RESUSCITATE and to transfer him to hospice. Guardianship has been obtained but no authority to withdraw care. Continue supportative care. No new clinical change Hospitalist Physical - Constitutional Vitals: Temp Pulse Resp BP Pulse Ox 99.0 F 85 21 89/54 94 06/19/17 11:56 06/19/17 11:53 06/19/17 10:00 06/19/17 11:53 06/19/17 11:53 General appearance: Present: no acute distress, other (Patient intubated) - EENT Eyes: Present: PERRL, EOM intact ENT: hearing intact, clear oral mucosa, dentition normal - Neck Neck: Present: supple, normal ROM - Respiratory Respiratory effort: normal Respiratory: bilateral: CTA - Cardiovascular Rhythm: regular Heart Sounds: Present: S1 & S2. Absent: gallop, rub - Extremities Extremities: no ischemia, No edema, Full ROM - Abdominal General gastrointestinal: soft, non-tender, non-distended, normal bowel sounds - Integumentary Integumentary: Present: clear, warm, dry - Neurologic Neurologic: CNII-XII intact, moves all extremities Results - Labs CBC & Chem 7: 04/28/17 05:10 04/28/17 05:10 Labs: Laboratory Last Values WBC 9.3 K/mm3 (4.5-11.0) 04/28/17 05:10 RBC 3.48 M/mm3 (3.65-5.03) L 04/28/17 05:10 Hgb 8.8 gm/dl (11.8-15.2) L 04/28/17 05:10 Hct 26.7 % (35.5-45.6) L 04/28/17 05:10 MCV 77 fl (84-94) L 04/28/17 05:10 MCH 25 pg (28-32) L 04/28/17 05:10 MCHC 33 % (32-34) 04/28/17 05:10 RDW 17.0 % (13.2-15.2) H 04/28/17 05:10 Plt Count 515 K/mm3 (140-440) H 04/28/17 05:10 Lymph % (Auto) 18.4 % (13.4-35.0) 04/28/17 05:10 [place] % (Auto) 8.4 % (0.0-7.3) H 04/28/17 05:10 Eos % (Auto) 1.8 % (0.0-4.3) 04/28/17 05:10 Baso % (Auto) 0.8 % (0.0-1.8) 04/28/17 05:10 Lymph # 1.7 K/mm3 (1.2-5.4) 04/28/17 05:10 [place] # 0.8 K/mm3 (0.0-0.8) 04/28/17 05:10 Eos # 0.2 K/mm3 (0.0-0.4) 04/28/17 05:10 Baso # 0.1 K/mm3 (0.0-0.1) 04/28/17 05:10 Add Manual Diff Complete 01/10/17 04:30 Total Counted 100 01/10/17 04:30 Seg Neutrophils % 70.6 % (40.0-70.0) H 04/28/17 05:10 Seg Neuts % (Manual) 88.0 % (40.0-70.0) H 01/10/17 04:30 Band Neutrophils % 7.0 % 01/10/17 04:30 Lymphocytes % (Manual) 4.0 % (13.4-35.0) L 01/10/17 04:30 Reactive Lymphs % (Man) 0 % 01/10/17 04:30 Monocytes % (Manual) 1.0 % (0.0-7.3) 01/10/17 04:30 Eosinophils % (Manual) 0 % (0.0-4.3) 01/10/17 04:30 Basophils % (Manual) 0 % (0.0-1.8) 01/10/17 04:30 Metamyelocytes % 0 % 01/10/17 04:30 Myelocytes % 0 % 01/10/17 04:30 Promyelocytes % 0 % 01/10/17 04:30 Blast Cells % 0 % 01/10/17 04:30 Nucleated RBC % Not Reportable 01/10/17 04:30 Seg Neutrophils # 6.6 K/mm3 (1.8-7.7) 04/28/17 05:10 Seg Neutrophils # Man 21.2 K/mm3 (1.8-7.7) H 01/10/17 04:30 Band Neutrophils # 1.7 K/mm3 01/10/17 04:30 Lymphocytes # (Manual) 1.0 K/mm3 (1.2-5.4) L 01/10/17 04:30 Abs React Lymphs (Man) 0.0 K/mm3 01/10/17 04:30 Monocytes # (Manual) 0.2 K/mm3 (0.0-0.8) 01/10/17 04:30 Eosinophils # (Manual) 0.0 K/mm3 (0.0-0.4) 01/10/17 04:30 Basophils # (Manual) 0.0 K/mm3 (0.0-0.1) 01/10/17 04:30 Metamyelocytes # 0.0 K/mm3 01/10/17 04:30 Myelocytes # 0.0 K/mm3 01/10/17 04:30 Promyelocytes # 0.0 K/mm3 01/10/17 04:30 Blast Cells # 0.0 K/mm3 01/10/17 04:30 WBC Morphology Not Reportable 01/10/17 04:30 Hypersegmented Neuts Not Reportable 01/10/17 04:30 Hyposegmented Neuts Not Reportable 01/10/17 04:30 Hypogranular Neuts Not Reportable 01/10/17 04:30 Smudge Cells Not Reportable 01/10/17 04:30 Toxic Granulation Not Reportable 01/10/17 04:30 Toxic Vacuolation Not Reportable 01/10/17 04:30 Dohle Bodies Not Reportable 01/10/17 04:30 Pelger-Huet Anomaly Not Reportable 01/10/17 04:30 [place] Rods Not Reportable 01/10/17 04:30 Platelet Estimate Consistent w auto 01/10/17 04:30 Clumped Platelets Not Reportable 01/10/17 04:30 Plt Clumps, EDTA Not Reportable 01/10/17 04:30 Large Platelets Not Reportable 01/10/17 04:30 Giant Platelets Not Reportable 01/10/17 04:30 Platelet Satelliting Not Reportable 01/10/17 04:30 Plt Morphology Comment Not Reportable 01/10/17 04:30 RBC Morphology Not Reportable 01/10/17 04:30 Dimorphic RBCs Not Reportable 01/10/17 04:30 Polychromasia Not Reportable 01/10/17 04:30 Hypochromasia 1+ 01/10/17 04:30 Poikilocytosis Not Reportable 01/10/17 04:30 Anisocytosis Not Reportable 01/10/17 04:30 Microcytosis Not Reportable 01/10/17 04:30 Macrocytosis Not Reportable 01/10/17 04:30 Spherocytes Not Reportable 01/10/17 04:30 Pappenheimer Bodies Not Reportable 01/10/17 04:30 Sickle Cells Not Reportable 01/10/17 04:30 Target Cells Not Reportable 01/10/17 04:30 Tear Drop Cells Not Reportable 01/10/17 04:30 Ovalocytes Not Reportable 01/10/17 04:30 Helmet Cells Not Reportable 01/10/17 04:30 Jarrett-Bunnell Bodies Not Reportable 01/10/17 04:30 [place] Rings Not Reportable 01/10/17 04:30 [place] Cells Not Reportable 01/10/17 04:30 Bite Cells Not Reportable 01/10/17 04:30 Crenated Cell Not Reportable 01/10/17 04:30 Elliptocytes Not Reportable 01/10/17 04:30 Acanthocytes (Spur) Not Reportable 01/10/17 04:30 Rouleaux Not Reportable 01/10/17 04:30 Hemoglobin C Crystals Not Reportable 01/10/17 04:30 Schistocytes Not Reportable 01/10/17 04:30 Malaria parasites Not Reportable 01/10/17 04:30 Kyle Bodies Not Reportable 01/10/17 04:30 Hem Pathologist Commnt No 01/10/17 04:30 PT 14.1 Sec. (12.2-14.9) 01/17/17 04:10 INR 1.04 (0.87-1.13) 01/17/17 04:10 APTT 36.6 Sec. (24.2-36.6) 01/17/17 04:10 POC ABG pH 7.442 (7.35-7.45) 01/31/17 18:55 ABG pH 7.420 pH Units (7.350-7.450) 01/17/17 04:35 POC ABG pCO2 32.8 (35-45) L 01/31/17 18:55 ABG pCO2 34.5 mm Hg 01/17/17 04:35 POC ABG pO2 82 (80-105) 01/31/17 18:55 ABG pO2 160.3 mm Hg (80.0-90.0) H 01/17/17 04:35 POC ABG HCO3 22.4 01/31/17 18:55 ABG HCO3 21.9 mmol/L (20.0-26.0) 01/17/17 04:35 POC ABG Total CO2 23 01/31/17 18:55 POC ABG O2 Sat 97 10/23/17 18:55 ABG O2 Saturation 99.0 % (95.0-99.0) 01/17/17 04:35 ABG O2 Content 11.1 (0.0-44) 01/17/17 04:35 POC ABG Base Excess -2 01/31/17 18:55 ABG Base Excess -2.3 mmol/L (-2.0-3.0) L 01/17/17 04:35 ABG Hemoglobin 7.9 gm/dl (14.0-18.0) L 01/17/17 04:35 ABG Carboxyhemoglobin 1.5 % (0.0-5.0) 01/17/17 04:35 ABG Methemoglobin 0.5 % (0.0-1.5) 01/17/17 04:35 VBG pH 7.284 (7.320-7.420) L 01/09/17 10:16 Oxyhemoglobin 97.1 % (95.0-99.0) 01/17/17 04:35 FiO2 25 % 01/31/17 18:55 Sodium 136 mmol/L (137-145) L 04/28/17 05:10 Potassium 4.5 mmol/L (3.6-5.0) 04/28/17 05:10 Chloride 95.2 mmol/L (98-107) L 04/28/17 05:10 Carbon Dioxide 27 mmol/L (22-30) 04/28/17 05:10 Anion Gap 18 mmol/L 04/28/17 05:10 BUN 42 mg/dL (9-20) H 04/28/17 05:10 Creatinine 0.9 mg/dL (0.8-1.5) 04/28/17 05:10 Estimated GFR > 60 ml/min 04/28/17 05:10 BUN/Creatinine Ratio 47 % 04/28/17 05:10 Glucose 63 mg/dL (75-100) L 04/28/17 05:10 POC Glucose 102 (70-105) 06/19/17 04:39 Lactic Acid 0.80 mmol/L (0.7-2.0) 01/30/17 11:49 Calcium 9.1 mg/dL (8.4-10.2) 04/28/17 05:10 Phosphorus 3.10 mg/dL (2.5-4.5) 03/29/17 04:32 Magnesium 1.90 mg/dL (1.7-2.3) 03/29/17 04:32 Total Bilirubin 0.50 mg/dL (0.1-1.2) 04/28/17 05:10 AST 45 units/L (5-40) H 04/28/17 05:10 ALT 42 units/L (7-56) 04/28/17 05:10 Alkaline Phosphatase 271 units/L (35-129) H 04/28/17 05:10 Ammonia 35.0 umol/L (25-60) 01/09/17 10:16 Total Creatine Kinase 135 units/L (55-170) 01/09/17 10:16 CK-MB (CK-2) 7.1 ng/mL (0.0-4.0) H 01/09/17 10:16 CK-MB (CK-2) Rel Index 5.2 (0-4) H 01/09/17 10:16 Troponin T < 0.010 ng/mL (0.00-0.029) 01/09/17 10:16 NT-Pro-B Natriuret Pep 602.9 pg/mL (0-900) 01/09/17 10:16 Total Protein 8.9 g/dL (6.3-8.2) H 04/28/17 05:10 Albumin 2.5 g/dL (3.9-5) L 04/28/17 05:10 Albumin/Globulin Ratio 0.4 % 04/28/17 05:10 TSH 52.800 mlU/mL (0.270-4.200) H 01/09/17 10:16 Free T4 0.78 ng/dL (0.76-1.46) 01/09/17 10:16 Total Cortisol 54.8 mcg/dL () 01/09/17 16:19 Urine Color Yellow (Yellow) 01/28/17 17:52 Urine Turbidity Clear (Clear) 01/28/17 17:52 Urine pH 6.0 (5.0-7.0) 01/28/17 17:52 Ur Specific [place] 1.016 (1.003-1.030) 01/28/17 17:52 Urine Protein 100 mg/dl mg/dL (Negative) 01/28/17 17:52 Urine Glucose (UA) >=500 mg/dL (Negative) 01/28/17 17:52 Urine Ketones Neg mg/dL (Negative) 01/28/17 17:52 Urine Blood Sm (Negative) 01/28/17 17:52 Urine Nitrite Neg (Negative) 01/28/17 17:52 Urine Bilirubin Neg (Negative) 01/28/17 17:52 Urine Urobilinogen < 2.0 mg/dL (<2.0) 01/28/17 17:52 Ur Leukocyte Esterase Lg (Negative) 01/28/17 17:52 Urine WBC (Auto) > 182.0 /HPF (0.0-6.0) H 01/28/17 17:52 Urine RBC (Auto) 113.0 /HPF (0.0-6.0) 01/28/17 17:52 Urine Bacteria (Auto) 2+ /HPF (Negative) 01/28/17 17:52 Urine WBC Clumps 3+ /HPF 01/28/17 17:52 Urine Mucus Few /HPF 01/14/17 14:07 Urine Yeast (Budding) 3+ /HPF 01/14/17 14:07 Salicylates < 0.3 mg/dL (2.8-20.0) L 01/09/17 10:16 Urine Opiates Screen Presumptive negative 01/09/17 10:23 Urine Methadone Screen Presumptive negative 01/09/17 10:23 Acetaminophen < 15.0 ug/mL (10.0-30.0) 01/09/17 10:16 Ur Barbiturates Screen Presumptive negative 01/09/17 10:23 Ur Phencyclidine Scrn Presumptive negative 01/09/17 10:23 Ur Amphetamines Screen Presumptive negative 01/09/17 10:23 U Benzodiazepines Scrn Presumptive negative 01/09/17 10:23 Urine Cocaine Screen Presumptive negative 01/09/17 10:23 U Marijuana (THC) Screen Presumptive negative 01/09/17 10:23 Drugs of Abuse Note Disclamer 01/09/17 10:23 Plasma/Serum Alcohol < 0.01 gm% (0-0.07) 01/09/17 10:16
[2017-06-19] MEDS: HumuLIN R SUB-Q SCH ×2 (14:00→19:52)
[2017-06-20] MEDS: PEPCID PO SCH ×3 (06:10→21:31)
[2017-06-20] MEDS: IMODIUM PO PRN ×3 (06:11→14:11)
[2017-06-20] MEDS: HumuLIN R SUB-Q SCH ×2 (06:12→14:10)
[2017-06-20] MEDS ORDERED: LANTUS SUB-Q SCH (08:00)
--- NOTE | 2017-06-20 09:36 | Progress Note ---
Assessment and Plan Acute respiratory failure secondary to metabolic event, prolonged vent support Hypoglycemia/hypothermia - Hypothyroidism; UTI/SIRS.Resolved Metabolic encephalopathy. Residual vegetative state,severe.Again, no significant or mayor improvement or change Rec: Poor prognosis,unchanged status Subjective Date of service: 06/20/17 Principal diagnosis: Acute respiratory failure,encephalopathy Interval history: Eyes open, not focal response to call or commands Objective Vital Signs - 12hr 06/19/17 06/19/17 06/19/17 22:00 23:31 23:51 Temperature 99.0 F Pulse Rate 82 85 Pulse Rate [ 70 From Monitor] Respiratory 16 Rate Blood Pressure 92/51 91/54 O2 Sat by Pulse 93 94 Oximetry 06/20/17 06/20/17 06/20/17 00:00 02:00 03:08 Temperature Pulse Rate 86 92 H 104 H Pulse Rate [ From Monitor] Respiratory 18 12 Rate Blood Pressure 93/56 85/55 85/55 O2 Sat by Pulse 93 88 93 Oximetry 06/20/17 06/20/17 06/20/17 04:00 06:00 08:00 Temperature 100.6 F H 100.2 F H Pulse Rate 95 H 91 H 91 H Pulse Rate [ From Monitor] Respiratory 18 19 Rate Blood Pressure 94/49 97/61 86/53 O2 Sat by Pulse 89 86 95 Oximetry Constitutional: no acute distress, other (on vent) Eyes: non-icteric ENT: oropharynx moist, other (ETT in position) Neck: supple Effort: normal Ascultation: Bilateral: clear, diminished breath sounds Cardiovascular: regular rate and rhythm Gastrointestinal: normoactive bowel sounds, soft, non-tender, non-distended Integumentary: normal Extremities: no cyanosis, no edema, pink and warm Neurologic: pupils equal and round Psychiatric: other (unable to obtain) CBC and BMP: 04/28/17 05:10 04/28/17 05:10 ABG, PT/INR, D-dimer: ABG POC ABG pH 7.442 (7.35-7.45) 01/31/17 18:55 ABG pH 7.420 pH Units (7.350-7.450) 01/17/17 04:35 POC ABG pCO2 32.8 (35-45) L 01/31/17 18:55 ABG pCO2 34.5 mm Hg 01/17/17 04:35 POC ABG pO2 82 (80-105) 01/31/17 18:55 ABG pO2 160.3 mm Hg (80.0-90.0) H 01/17/17 04:35 POC ABG HCO3 22.4 01/31/17 18:55 POC ABG Total CO2 23 01/31/17 18:55 POC ABG O2 Sat 97 01/31/17 18:55 ABG O2 Saturation 99.0 % (95.0-99.0) 01/17/17 04:35 PT/INR, D-dimer PT 14.1 Sec. (12.2-14.9) 01/17/17 04:10 INR 1.04 (0.87-1.13) 01/17/17 04:10 Abnormal lab findings: Abnormal Labs 01/09/17 01/09/17 01/09/17 10:16 10:16 10:16 WBC RBC Hgb 9.7 L Hct 28.4 L MCV 76 L MCH 26 L RDW 17.2 H Plt Count 448 H Lymph % (Auto) Arthur % (Auto) Eos % (Auto) Arthur # Seg Neutrophils % 79.5 H Seg Neuts % (Manual) Lymphocytes % (Manual) Seg Neutrophils # Seg Neutrophils # Man Lymphocytes # (Manual) APTT 39.6 H POC ABG pH ABG pH POC ABG pCO2 POC ABG pO2 ABG pO2 ABG HCO3 ABG Base Excess ABG Hemoglobin VBG pH Oxyhemoglobin Sodium 132 L Potassium Chloride 96.7 L Carbon Dioxide 21 L BUN 34 H Creatinine Glucose POC Glucose Lactic Acid Calcium 8.3 L AST ALT Alkaline Phosphatase 151 H CK-MB (CK-2) 7.1 H CK-MB (CK-2) Rel Index 5.2 H Total Protein Albumin 3.3 L TSH Urine WBC (Auto) Salicylates 01/09/17 01/09/17 01/09/17 10:16 10:16 10:16 WBC RBC Hgb Hct MCV MCH RDW Plt Count Lymph % (Auto) Arthur % (Auto) Eos % (Auto) Arthur # Seg Neutrophils % Seg Neuts % (Manual) Lymphocytes % (Manual) Seg Neutrophils # Seg Neutrophils # Man Lymphocytes # (Manual) APTT POC ABG pH ABG pH POC ABG pCO2 POC ABG pO2 ABG pO2 ABG HCO3 ABG Base Excess ABG Hemoglobin VBG pH 7.284 L Oxyhemoglobin Sodium Potassium Chloride Carbon Dioxide BUN Creatinine Glucose POC Glucose Lactic Acid Calcium AST ALT Alkaline Phosphatase CK-MB (CK-2) CK-MB (CK-2) Rel Index Total Protein Albumin TSH 52.800 H Urine WBC (Auto) Salicylates < 0.3 L 01/09/17 01/09/17 01/09/17 10:23 11:14 12:49 WBC RBC Hgb Hct MCV MCH RDW Plt Count Lymph % (Auto) Arthur % (Auto) Eos % (Auto) Arthur # Seg Neutrophils % Seg Neuts % (Manual) Lymphocytes % (Manual) Seg Neutrophils # Seg Neutrophils # Man Lymphocytes # (Manual) APTT POC ABG pH ABG pH POC ABG pCO2 POC ABG pO2 643 H ABG pO2 ABG HCO3 ABG Base Excess ABG Hemoglobin VBG pH Oxyhemoglobin Sodium Potassium Chloride Carbon Dioxide BUN Creatinine Glucose POC Glucose < 40 L Lactic Acid Calcium AST ALT Alkaline Phosphatase CK-MB (CK-2) CK-MB (CK-2) Rel Index Total Protein Albumin TSH Urine WBC (Auto) 61.0 H Salicylates 01/09/17 01/09/17 01/09/17 13:13 14:21 15:09 WBC RBC Hgb Hct MCV MCH RDW Plt Count Lymph % (Auto) Arthur % (Auto) Eos % (Auto) Arthur # Seg Neutrophils % Seg Neuts % (Manual) Lymphocytes % (Manual) Seg Neutrophils # Seg Neutrophils # Man Lymphocytes # (Manual) APTT POC ABG pH ABG pH POC ABG pCO2 POC ABG pO2 ABG pO2 ABG HCO3 ABG Base Excess ABG Hemoglobin VBG pH Oxyhemoglobin Sodium Potassium Chloride Carbon Dioxide BUN Creatinine Glucose POC Glucose 128 H 65 L 120 H Lactic Acid Calcium AST ALT Alkaline Phosphatase CK-MB (CK-2) CK-MB (CK-2) Rel Index Total Protein Albumin TSH Urine WBC (Auto) Salicylates 01/09/17 01/09/17 01/10/17 16:28 17:14 04:30 WBC 24.1 H RBC 3.38 L Hgb 8.5 L Hct 26.0 L MCV 77 L MCH 25 L RDW 17.9 H Plt Count 474 H Lymph % (Auto) Arthur % (Auto) Eos % (Auto) Arthur # Seg Neutrophils % Seg Neuts % (Manual) 88.0 H Lymphocytes % (Manual) 4.0 L Seg Neutrophils # Seg Neutrophils # Man 21.2 H Lymphocytes # (Manual) 1.0 L APTT POC ABG pH ABG pH POC ABG pCO2 POC ABG pO2 ABG pO2 ABG HCO3 ABG Base Excess ABG Hemoglobin VBG pH Oxyhemoglobin Sodium Potassium Chloride Carbon Dioxide BUN Creatinine Glucose POC Glucose 44 L 112 H Lactic Acid Calcium AST ALT Alkaline Phosphatase CK-MB (CK-2) CK-MB (CK-2) Rel Index Total Protein Albumin TSH Urine WBC (Auto) Salicylates 01/10/17 01/10/17 01/10/17 04:30 05:41 05:45 WBC RBC Hgb Hct MCV MCH RDW Plt Count Lymph % (Auto) Arthur % (Auto) Eos % (Auto) Arthur # Seg Neutrophils % Seg Neuts % (Manual) Lymphocytes % (Manual) Seg Neutrophils # Seg Neutrophils # Man Lymphocytes # (Manual) APTT POC ABG pH ABG pH POC ABG pCO2 26.6 L POC ABG pO2 207 H ABG pO2 ABG HCO3 ABG Base Excess ABG Hemoglobin VBG pH Oxyhemoglobin Sodium Potassium Chloride Carbon Dioxide 17 L BUN 27 H Creatinine Glucose POC Glucose 68 L Lactic Acid Calcium 7.5 L AST ALT Alkaline Phosphatase CK-MB (CK-2) CK-MB (CK-2) Rel Index Total Protein Albumin TSH Urine WBC (Auto) Salicylates 01/10/17 01/10/17 01/10/17 07:47 10:50 13:41 WBC RBC Hgb Hct MCV MCH RDW Plt Count Lymph % (Auto) Arthur % (Auto) Eos % (Auto) Arthur # Seg Neutrophils % Seg Neuts % (Manual) Lymphocytes % (Manual) Seg Neutrophils # Seg Neutrophils # Man Lymphocytes # (Manual) APTT POC ABG pH ABG pH POC ABG pCO2 POC ABG pO2 ABG pO2 ABG HCO3 ABG Base Excess ABG Hemoglobin VBG pH Oxyhemoglobin Sodium Potassium Chloride Carbon Dioxide BUN Creatinine Glucose POC Glucose 148 H 165 H 114 H Lactic Acid Calcium AST ALT Alkaline Phosphatase CK-MB (CK-2) CK-MB (CK-2) Rel Index Total Protein Albumin TSH Urine WBC (Auto) Salicylates 01/10/17 01/10/17 01/10/17 20:20 21:39 23:24 WBC RBC Hgb Hct MCV MCH RDW Plt Count Lymph % (Auto) Arthur % (Auto) Eos % (Auto) Arthur # Seg Neutrophils % Seg Neuts % (Manual) Lymphocytes % (Manual) Seg Neutrophils # Seg Neutrophils # Man Lymphocytes # (Manual) APTT POC ABG pH ABG pH POC ABG pCO2 POC ABG pO2 ABG pO2 ABG HCO3 ABG Base Excess ABG Hemoglobin VBG pH Oxyhemoglobin Sodium Potassium Chloride Carbon Dioxide BUN Creatinine Glucose POC Glucose 150 H 175 H 155 H Lactic Acid Calcium AST ALT Alkaline Phosphatase CK-MB (CK-2) CK-MB (CK-2) Rel Index Total Protein Albumin TSH Urine WBC (Auto) Salicylates 01/11/17 01/11/17 01/11/17 00:19 04:06 05:20 WBC 15.2 H RBC 3.40 L Hgb 8.9 L Hct 26.3 L MCV 78 L MCH 26 L RDW 18.6 H Plt Count 462 H Lymph % (Auto) 13.2 L Arthur % (Auto) Eos % (Auto) Arthur # Seg Neutrophils % 80.8 H Seg Neuts % (Manual) Lymphocytes % (Manual) Seg Neutrophils # 12.3 H Seg Neutrophils # Man Lymphocytes # (Manual) APTT POC ABG pH 7.463 H ABG pH POC ABG pCO2 26.2 L POC ABG pO2 185 H ABG pO2 ABG HCO3 ABG Base Excess ABG Hemoglobin VBG pH Oxyhemoglobin Sodium Potassium Chloride Carbon Dioxide BUN Creatinine Glucose POC Glucose 163 H Lactic Acid Calcium AST ALT Alkaline Phosphatase CK-MB (CK-2) CK-MB (CK-2) Rel Index Total Protein Albumin TSH Urine WBC (Auto) Salicylates 01/11/17 01/11/17 01/11/17 05:20 06:21 07:57 WBC RBC Hgb Hct MCV MCH RDW Plt Count Lymph % (Auto) Arthur % (Auto) Eos % (Auto) Arthur # Seg Neutrophils % Seg Neuts % (Manual) Lymphocytes % (Manual) Seg Neutrophils # Seg Neutrophils # Man Lymphocytes # (Manual) APTT POC ABG pH ABG pH POC ABG pCO2 POC ABG pO2 ABG pO2 ABG HCO3 ABG Base Excess ABG Hemoglobin VBG pH Oxyhemoglobin Sodium Potassium 3.4 L Chloride 111.5 H Carbon Dioxide 17 L BUN Creatinine Glucose 147 H POC Glucose 139 H 188 H Lactic Acid Calcium 8.0 L AST ALT Alkaline Phosphatase CK-MB (CK-2) CK-MB (CK-2) Rel Index Total Protein Albumin TSH Urine WBC (Auto) Salicylates 01/11/17 01/11/17 01/11/17 11:46 16:50 23:15 WBC RBC Hgb Hct MCV MCH RDW Plt Count Lymph % (Auto) Arthur % (Auto) Eos % (Auto) Arthur # Seg Neutrophils % Seg Neuts % (Manual) Lymphocytes % (Manual) Seg Neutrophils # Seg Neutrophils # Man Lymphocytes # (Manual) APTT POC ABG pH ABG pH POC ABG pCO2 POC ABG pO2 ABG pO2 ABG HCO3 ABG Base Excess ABG Hemoglobin VBG pH Oxyhemoglobin Sodium Potassium Chloride Carbon Dioxide BUN Creatinine Glucose POC Glucose 199 H 235 H 155 H Lactic Acid Calcium AST ALT Alkaline Phosphatase CK-MB (CK-2) CK-MB (CK-2) Rel Index Total Protein Albumin TSH Urine WBC (Auto) Salicylates 01/12/17 01/12/17 01/12/17 05:02 06:56 14:50 WBC RBC Hgb Hct MCV MCH RDW Plt Count Lymph % (Auto) Arthur % (Auto) Eos % (Auto) Arthur # Seg Neutrophils % Seg Neuts % (Manual) Lymphocytes % (Manual) Seg Neutrophils # Seg Neutrophils # Man Lymphocytes # (Manual) APTT POC ABG pH ABG pH POC ABG pCO2 28.0 L POC ABG pO2 178 H ABG pO2 ABG HCO3 ABG Base Excess ABG Hemoglobin VBG pH Oxyhemoglobin Sodium Potassium Chloride Carbon Dioxide BUN Creatinine Glucose POC Glucose 119 H 164 H Lactic Acid Calcium AST ALT Alkaline Phosphatase CK-MB (CK-2) CK-MB (CK-2) Rel Index Total Protein Albumin TSH Urine WBC (Auto) Salicylates 01/13/17 01/13/17 01/13/17 03:37 03:37 04:26 WBC RBC 3.61 L Hgb 9.3 L Hct 28.0 L MCV 78 L MCH 26 L RDW 18.2 H Plt Count Lymph % (Auto) Arthur % (Auto) Eos % (Auto) Arthur # Seg Neutrophils % Seg Neuts % (Manual) Lymphocytes % (Manual) Seg Neutrophils # Seg Neutrophils # Man Lymphocytes # (Manual) APTT POC ABG pH 7.485 H ABG pH POC ABG pCO2 25.4 L POC ABG pO2 73 L ABG pO2 ABG HCO3 ABG Base Excess ABG Hemoglobin VBG pH Oxyhemoglobin Sodium Potassium Chloride 112.4 H Carbon Dioxide 19 L BUN Creatinine Glucose 118 H POC Glucose Lactic Acid Calcium 8.0 L AST ALT Alkaline Phosphatase CK-MB (CK-2) CK-MB (CK-2) Rel Index Total Protein Albumin TSH Urine WBC (Auto) Salicylates 01/13/17 01/13/17 01/13/17 06:15 11:50 17:31 WBC RBC Hgb Hct MCV MCH RDW Plt Count Lymph % (Auto) Arthur % (Auto) Eos % (Auto) Arthur # Seg Neutrophils % Seg Neuts % (Manual) Lymphocytes % (Manual) Seg Neutrophils # Seg Neutrophils # Man Lymphocytes # (Manual) APTT POC ABG pH ABG pH POC ABG pCO2 POC ABG pO2 ABG pO2 ABG HCO3 ABG Base Excess ABG Hemoglobin VBG pH Oxyhemoglobin Sodium Potassium Chloride Carbon Dioxide BUN Creatinine Glucose POC Glucose 116 H 171 H 203 H Lactic Acid Calcium AST ALT Alkaline Phosphatase CK-MB (CK-2) CK-MB (CK-2) Rel Index Total Protein Albumin TSH Urine WBC (Auto) Salicylates 01/14/17 01/14/17 01/14/17 00:02 04:50 04:50 WBC RBC 3.32 L Hgb 8.5 L Hct 26.1 L MCV 79 L MCH 26 L RDW 18.2 H Plt Count Lymph % (Auto) Arthur % (Auto) 9.0 H Eos % (Auto) Arthur # Seg Neutrophils % Seg Neuts % (Manual) Lymphocytes % (Manual) Seg Neutrophils # Seg Neutrophils # Man Lymphocytes # (Manual) APTT POC ABG pH ABG pH POC ABG pCO2 POC ABG pO2 ABG pO2 ABG HCO3 ABG Base Excess ABG Hemoglobin VBG pH Oxyhemoglobin Sodium Potassium Chloride 112.5 H Carbon Dioxide BUN Creatinine Glucose 149 H POC Glucose 157 H Lactic Acid Calcium 8.1 L AST ALT Alkaline Phosphatase CK-MB (CK-2) CK-MB (CK-2) Rel Index Total Protein Albumin TSH Urine WBC (Auto) Salicylates 01/14/17 01/14/17 01/14/17 05:10 11:27 14:07 WBC RBC Hgb Hct MCV MCH RDW Plt Count Lymph % (Auto) Arthur % (Auto) Eos % (Auto) Arthur # Seg Neutrophils % Seg Neuts % (Manual) Lymphocytes % (Manual) Seg Neutrophils # Seg Neutrophils # Man Lymphocytes # (Manual) APTT POC ABG pH ABG pH POC ABG pCO2 POC ABG pO2 ABG pO2 ABG HCO3 ABG Base Excess ABG Hemoglobin VBG pH Oxyhemoglobin Sodium Potassium Chloride Carbon Dioxide BUN Creatinine Glucose POC Glucose 176 H 147 H Lactic Acid Calcium AST ALT Alkaline Phosphatase CK-MB (CK-2) CK-MB (CK-2) Rel Index Total Protein Albumin TSH Urine WBC (Auto) 53.0 H Salicylates 01/14/17 01/15/17 01/15/17 16:52 00:04 05:26 WBC RBC Hgb Hct MCV MCH RDW Plt Count Lymph % (Auto) Arthur % (Auto) Eos % (Auto) Arthur # Seg Neutrophils % Seg Neuts % (Manual) Lymphocytes % (Manual) Seg Neutrophils # Seg Neutrophils # Man Lymphocytes # (Manual) APTT POC ABG pH ABG pH POC ABG pCO2 POC ABG pO2 ABG pO2 ABG HCO3 ABG Base Excess ABG Hemoglobin VBG pH Oxyhemoglobin Sodium Potassium Chloride Carbon Dioxide BUN Creatinine Glucose POC Glucose 131 H 193 H 215 H Lactic Acid Calcium AST ALT Alkaline Phosphatase CK-MB (CK-2) CK-MB (CK-2) Rel Index Total Protein Albumin TSH Urine WBC (Auto) Salicylates 01/15/17 01/15/17 01/15/17 11:49 17:47 21:33 WBC RBC Hgb Hct MCV MCH RDW Plt Count Lymph % (Auto) Arthur % (Auto) Eos % (Auto) Arthur # Seg Neutrophils % Seg Neuts % (Manual) Lymphocytes % (Manual) Seg Neutrophils # Seg Neutrophils # Man Lymphocytes # (Manual) APTT POC ABG pH ABG pH POC ABG pCO2 POC ABG pO2 ABG pO2 ABG HCO3 ABG Base Excess ABG Hemoglobin VBG pH Oxyhemoglobin Sodium Potassium Chloride Carbon Dioxide BUN Creatinine Glucose POC Glucose 121 H 211 H 275 H Lactic Acid Calcium AST ALT Alkaline Phosphatase CK-MB (CK-2) CK-MB (CK-2) Rel Index Total Protein Albumin TSH Urine WBC (Auto) Salicylates 01/16/17 01/16/17 01/16/17 04:30 05:28 13:45 WBC RBC Hgb Hct MCV MCH RDW Plt Count Lymph % (Auto) Arthur % (Auto) Eos % (Auto) Arthur # Seg Neutrophils % Seg Neuts % (Manual) Lymphocytes % (Manual) Seg Neutrophils # Seg Neutrophils # Man Lymphocytes # (Manual) APTT POC ABG pH ABG pH 7.457 H POC ABG pCO2 POC ABG pO2 ABG pO2 55.1 L ABG HCO3 19.4 L ABG Base Excess -4.0 L ABG Hemoglobin 6.8 L VBG pH Oxyhemoglobin 94.9 L Sodium Potassium Chloride Carbon Dioxide BUN Creatinine Glucose POC Glucose 271 H 236 H Lactic Acid Calcium AST ALT Alkaline Phosphatase CK-MB (CK-2) CK-MB (CK-2) Rel Index Total Protein Albumin TSH Urine WBC (Auto) Salicylates 01/16/17 01/17/17 01/17/17 21:39 04:10 04:10 WBC 4.4 L RBC 2.98 L Hgb 7.7 L Hct 23.3 L MCV 78 L MCH 26 L RDW 18.1 H Plt Count Lymph % (Auto) Arthur % (Auto) Eos % (Auto) Arthur # Seg Neutrophils % Seg Neuts % (Manual) Lymphocytes % (Manual) Seg Neutrophils # Seg Neutrophils # Man Lymphocytes # (Manual) APTT POC ABG pH ABG pH POC ABG pCO2 POC ABG pO2 ABG pO2 ABG HCO3 ABG Base Excess ABG Hemoglobin VBG pH Oxyhemoglobin Sodium Potassium 3.3 L Chloride 108.7 H Carbon Dioxide 20 L BUN 8 L Creatinine Glucose 202 H POC Glucose 258 H Lactic Acid Calcium 7.6 L AST ALT Alkaline Phosphatase CK-MB (CK-2) CK-MB (CK-2) Rel Index Total Protein Albumin TSH Urine WBC (Auto) Salicylates 01/17/17 01/17/17 01/17/17 04:35 12:23 16:01 WBC RBC Hgb Hct MCV MCH RDW Plt Count Lymph % (Auto) Arthur % (Auto) Eos % (Auto) Arthur # Seg Neutrophils % Seg Neuts % (Manual) Lymphocytes % (Manual) Seg Neutrophils # Seg Neutrophils # Man Lymphocytes # (Manual) APTT POC ABG pH ABG pH POC ABG pCO2 POC ABG pO2 ABG pO2 160.3 H ABG HCO3 ABG Base Excess -2.3 L ABG Hemoglobin 7.9 L VBG pH Oxyhemoglobin Sodium Potassium Chloride Carbon Dioxide BUN Creatinine Glucose POC Glucose 321 H 239 H Lactic Acid Calcium AST ALT Alkaline Phosphatase CK-MB (CK-2) CK-MB (CK-2) Rel Index Total Protein Albumin TSH Urine WBC (Auto) Salicylates 01/18/17 01/18/17 01/18/17 05:07 12:09 17:54 WBC RBC Hgb Hct MCV MCH RDW Plt Count Lymph % (Auto) Arthur % (Auto) Eos % (Auto) Arthur # Seg Neutrophils % Seg Neuts % (Manual) Lymphocytes % (Manual) Seg Neutrophils # Seg Neutrophils # Man Lymphocytes # (Manual) APTT POC ABG pH ABG pH POC ABG pCO2 POC ABG pO2 ABG pO2 ABG HCO3 ABG Base Excess ABG Hemoglobin VBG pH Oxyhemoglobin Sodium Potassium Chloride Carbon Dioxide BUN Creatinine Glucose POC Glucose 155 H 203 H 132 H Lactic Acid Calcium AST ALT Alkaline Phosphatase CK-MB (CK-2) CK-MB (CK-2) Rel Index Total Protein Albumin TSH Urine WBC (Auto) Salicylates 01/18/17 01/19/17 01/19/17 23:43 04:28 12:11 WBC RBC Hgb Hct MCV MCH RDW Plt Count Lymph % (Auto) Arthur % (Auto) Eos % (Auto) Arthur # Seg Neutrophils % Seg Neuts % (Manual) Lymphocytes % (Manual) Seg Neutrophils # Seg Neutrophils # Man Lymphocytes # (Manual) APTT POC ABG pH ABG pH POC ABG pCO2 POC ABG pO2 ABG pO2 ABG HCO3 ABG Base Excess ABG Hemoglobin VBG pH Oxyhemoglobin Sodium Potassium Chloride Carbon Dioxide BUN Creatinine Glucose POC Glucose 125 H 182 H 153 H Lactic Acid Calcium AST ALT Alkaline Phosphatase CK-MB (CK-2) CK-MB (CK-2) Rel Index Total Protein Albumin TSH Urine WBC (Auto) Salicylates 01/19/17 01/20/17 01/20/17 17:23 00:12 05:44 WBC RBC Hgb Hct MCV MCH RDW Plt Count Lymph % (Auto) Arthur % (Auto) Eos % (Auto) Arthur # Seg Neutrophils % Seg Neuts % (Manual) Lymphocytes % (Manual) Seg Neutrophils # Seg Neutrophils # Man Lymphocytes # (Manual) APTT POC ABG pH ABG pH POC ABG pCO2 POC ABG pO2 ABG pO2 ABG HCO3 ABG Base Excess ABG Hemoglobin VBG pH Oxyhemoglobin Sodium Potassium Chloride Carbon Dioxide BUN Creatinine Glucose POC Glucose 66 L 139 H 176 H Lactic Acid Calcium AST ALT Alkaline Phosphatase CK-MB (CK-2) CK-MB (CK-2) Rel Index Total Protein Albumin TSH Urine WBC (Auto) Salicylates 01/20/17 01/20/17 01/20/17 11:48 17:42 23:43 WBC RBC Hgb Hct MCV MCH RDW Plt Count Lymph % (Auto) Arthur % (Auto) Eos % (Auto) Arthur # Seg Neutrophils % Seg Neuts % (Manual) Lymphocytes % (Manual) Seg Neutrophils # Seg Neutrophils # Man Lymphocytes # (Manual) APTT POC ABG pH ABG pH POC ABG pCO2 POC ABG pO2 ABG pO2 ABG HCO3 ABG Base Excess ABG Hemoglobin VBG pH Oxyhemoglobin Sodium Potassium Chloride Carbon Dioxide BUN Creatinine Glucose POC Glucose 218 H 132 H 178 H Lactic Acid Calcium AST ALT Alkaline Phosphatase CK-MB (CK-2) CK-MB (CK-2) Rel Index Total Protein Albumin TSH Urine WBC (Auto) Salicylates 01/21/17 01/21/17 01/21/17 05:34 11:17 23:37 WBC RBC Hgb Hct MCV MCH RDW Plt Count Lymph % (Auto) Arthur % (Auto) Eos % (Auto) Arthur # Seg Neutrophils % Seg Neuts % (Manual) Lymphocytes % (Manual) Seg Neutrophils # Seg Neutrophils # Man Lymphocytes # (Manual) APTT POC ABG pH ABG pH POC ABG pCO2 POC ABG pO2 ABG pO2 ABG HCO3 ABG Base Excess ABG Hemoglobin VBG pH Oxyhemoglobin Sodium Potassium Chloride Carbon Dioxide BUN Creatinine Glucose POC Glucose 106 H 213 H 140 H Lactic Acid Calcium AST ALT Alkaline Phosphatase CK-MB (CK-2) CK-MB (CK-2) Rel Index Total Protein Albumin TSH Urine WBC (Auto) Salicylates 01/22/17 01/22/17 01/22/17 04:00 04:00 04:58 WBC RBC 3.26 L Hgb 8.3 L Hct 25.5 L MCV 78 L MCH 25 L RDW 17.9 H Plt Count Lymph % (Auto) Arthur % (Auto) 7.9 H Eos % (Auto) 6.2 H Arthur # Seg Neutrophils % Seg Neuts % (Manual) Lymphocytes % (Manual) Seg Neutrophils # Seg Neutrophils # Man Lymphocytes # (Manual) APTT POC ABG pH ABG pH POC ABG pCO2 POC ABG pO2 ABG pO2 ABG HCO3 ABG Base Excess ABG Hemoglobin VBG pH Oxyhemoglobin Sodium Potassium Chloride 95.5 L Carbon Dioxide 31 H D BUN Creatinine Glucose 134 H POC Glucose 146 H Lactic Acid Calcium AST 44 H ALT Alkaline Phosphatase 379 H CK-MB (CK-2) CK-MB (CK-2) Rel Index Total Protein Albumin 2.7 L TSH Urine WBC (Auto) Salicylates 01/22/17 01/22/17 01/22/17 12:12 18:12 23:39 WBC RBC Hgb Hct MCV MCH RDW Plt Count Lymph % (Auto) Arthur % (Auto) Eos % (Auto) Arthur # Seg Neutrophils % Seg Neuts % (Manual) Lymphocytes % (Manual) Seg Neutrophils # Seg Neutrophils # Man Lymphocytes # (Manual) APTT POC ABG pH ABG pH POC ABG pCO2 POC ABG pO2 ABG pO2 ABG HCO3 ABG Base Excess ABG Hemoglobin VBG pH Oxyhemoglobin Sodium Potassium Chloride Carbon Dioxide BUN Creatinine Glucose POC Glucose 255 H 182 H 134 H Lactic Acid Calcium AST ALT Alkaline Phosphatase CK-MB (CK-2) CK-MB (CK-2) Rel Index Total Protein Albumin TSH Urine WBC (Auto) Salicylates 01/23/17 01/23/17 01/23/17 04:43 12:12 17:36 WBC RBC Hgb Hct MCV MCH RDW Plt Count Lymph % (Auto) Arthur % (Auto) Eos % (Auto) Arthur # Seg Neutrophils % Seg Neuts % (Manual) Lymphocytes % (Manual) Seg Neutrophils # Seg Neutrophils # Man Lymphocytes # (Manual) APTT POC ABG pH ABG pH POC ABG pCO2 POC ABG pO2 ABG pO2 ABG HCO3 ABG Base Excess ABG Hemoglobin VBG pH Oxyhemoglobin Sodium Potassium Chloride Carbon Dioxide BUN Creatinine Glucose POC Glucose 218 H 128 H 156 H Lactic Acid Calcium AST ALT Alkaline Phosphatase CK-MB (CK-2) CK-MB (CK-2) Rel Index Total Protein Albumin TSH Urine WBC (Auto) Salicylates 01/24/17 01/24/17 01/24/17 00:08 05:16 11:40 WBC RBC Hgb Hct MCV MCH RDW Plt Count Lymph % (Auto) Arthur % (Auto) Eos % (Auto) Arthur # Seg Neutrophils % Seg Neuts % (Manual) Lymphocytes % (Manual) Seg Neutrophils # Seg Neutrophils # Man Lymphocytes # (Manual) APTT POC ABG pH ABG pH POC ABG pCO2 POC ABG pO2 ABG pO2 ABG HCO3 ABG Base Excess ABG Hemoglobin VBG pH Oxyhemoglobin Sodium Potassium Chloride Carbon Dioxide BUN Creatinine Glucose POC Glucose 129 H 169 H 187 H Lactic Acid Calcium AST ALT Alkaline Phosphatase CK-MB (CK-2) CK-MB (CK-2) Rel Index Total Protein Albumin TSH Urine WBC (Auto) Salicylates 01/24/17 01/24/17 01/25/17 17:43 23:23 04:56 WBC RBC Hgb Hct MCV MCH RDW Plt Count Lymph % (Auto) Arthur % (Auto) Eos % (Auto) Arthur # Seg Neutrophils % Seg Neuts % (Manual) Lymphocytes % (Manual) Seg Neutrophils # Seg Neutrophils # Man Lymphocytes # (Manual) APTT POC ABG pH ABG pH POC ABG pCO2 POC ABG pO2 ABG pO2 ABG HCO3 ABG Base Excess ABG Hemoglobin VBG pH Oxyhemoglobin Sodium Potassium Chloride Carbon Dioxide BUN Creatinine Glucose POC Glucose 215 H 222 H 210 H Lactic Acid Calcium AST ALT Alkaline Phosphatase CK-MB (CK-2) CK-MB (CK-2) Rel Index Total Protein Albumin TSH Urine WBC (Auto) Salicylates 01/25/17 01/25/17 01/26/17 11:52 17:37 00:02 WBC RBC Hgb Hct MCV MCH RDW Plt Count Lymph % (Auto) Arthur % (Auto) Eos % (Auto) Arthur # Seg Neutrophils % Seg Neuts % (Manual) Lymphocytes % (Manual) Seg Neutrophils # Seg Neutrophils # Man Lymphocytes # (Manual) APTT POC ABG pH ABG pH POC ABG pCO2 POC ABG pO2 ABG pO2 ABG HCO3 ABG Base Excess ABG Hemoglobin VBG pH Oxyhemoglobin Sodium Potassium Chloride Carbon Dioxide BUN Creatinine Glucose POC Glucose 284 H 218 H 192 H Lactic Acid Calcium AST ALT Alkaline Phosphatase CK-MB (CK-2) CK-MB (CK-2) Rel Index Total Protein Albumin TSH Urine WBC (Auto) Salicylates 01/26/17 01/26/17 01/26/17 05:33 12:17 17:50 WBC RBC Hgb Hct MCV MCH RDW Plt Count Lymph % (Auto) Arthur % (Auto) Eos % (Auto) Arthur # Seg Neutrophils % Seg Neuts % (Manual) Lymphocytes % (Manual) Seg Neutrophils # Seg Neutrophils # Man Lymphocytes # (Manual) APTT POC ABG pH ABG pH POC ABG pCO2 POC ABG pO2 ABG pO2 ABG HCO3 ABG Base Excess ABG Hemoglobin VBG pH Oxyhemoglobin Sodium Potassium Chloride Carbon Dioxide BUN Creatinine Glucose POC Glucose 199 H 227 H 229 H Lactic Acid Calcium AST ALT Alkaline Phosphatase CK-MB (CK-2) CK-MB (CK-2) Rel Index Total Protein Albumin TSH Urine WBC (Auto) Salicylates 01/26/17 01/27/17 01/27/17 23:57 05:31 11:42 WBC RBC Hgb Hct MCV MCH RDW Plt Count Lymph % (Auto) Arthur % (Auto) Eos % (Auto) Arthur # Seg Neutrophils % Seg Neuts % (Manual) Lymphocytes % (Manual) Seg Neutrophils # Seg Neutrophils # Man Lymphocytes # (Manual) APTT POC ABG pH ABG pH POC ABG pCO2 POC ABG pO2 ABG pO2 ABG HCO3 ABG Base Excess ABG Hemoglobin VBG pH Oxyhemoglobin Sodium Potassium Chloride Carbon Dioxide BUN Creatinine Glucose POC Glucose 186 H 285 H 260 H Lactic Acid Calcium AST ALT Alkaline Phosphatase CK-MB (CK-2) CK-MB (CK-2) Rel Index Total Protein Albumin TSH Urine WBC (Auto) Salicylates 01/27/17 01/27/17 01/27/17 17:47 23:58 Unknown WBC 12.1 H RBC 3.28 L Hgb 8.5 L Hct 25.5 L MCV 78 L MCH 26 L RDW 16.8 H Plt Count 601 H Lymph % (Auto) Arthur % (Auto) Eos % (Auto) Arthur # Seg Neutrophils % Seg Neuts % (Manual) Lymphocytes % (Manual) Seg Neutrophils # Seg Neutrophils # Man Lymphocytes # (Manual) APTT POC ABG pH ABG pH POC ABG pCO2 POC ABG pO2 ABG pO2 ABG HCO3 ABG Base Excess ABG Hemoglobin VBG pH Oxyhemoglobin Sodium Potassium Chloride Carbon Dioxide BUN Creatinine Glucose POC Glucose 329 H 225 H Lactic Acid Calcium AST ALT Alkaline Phosphatase CK-MB (CK-2) CK-MB (CK-2) Rel Index Total Protein Albumin TSH Urine WBC (Auto) Salicylates 01/27/17 01/28/17 01/28/17 Unknown 03:44 03:44 WBC RBC 3.14 L Hgb 8.2 L Hct 24.1 L MCV 77 L MCH 26 L RDW 16.9 H Plt Count 567 H Lymph % (Auto) Arthur % (Auto) Eos % (Auto) Arthur # Seg Neutrophils % Seg Neuts % (Manual) Lymphocytes % (Manual) Seg Neutrophils # Seg Neutrophils # Man Lymphocytes # (Manual) APTT POC ABG pH ABG pH POC ABG pCO2 POC ABG pO2 ABG pO2 ABG HCO3 ABG Base Excess ABG Hemoglobin VBG pH Oxyhemoglobin Sodium 128 L Potassium 5.4 H Chloride 87.5 L Carbon Dioxide BUN 44 H 42 H Creatinine Glucose 250 H 128 H POC Glucose Lactic Acid Calcium AST ALT Alkaline Phosphatase CK-MB (CK-2) CK-MB (CK-2) Rel Index Total Protein Albumin TSH Urine WBC (Auto) Salicylates 01/28/17 01/28/17 01/28/17 11:43 16:47 17:52 WBC RBC Hgb Hct MCV MCH RDW Plt Count Lymph % (Auto) Arthur % (Auto) Eos % (Auto) Arthur # Seg Neutrophils % Seg Neuts % (Manual) Lymphocytes % (Manual) Seg Neutrophils # Seg Neutrophils # Man Lymphocytes # (Manual) APTT POC ABG pH ABG pH POC ABG pCO2 POC ABG pO2 ABG pO2 ABG HCO3 ABG Base Excess ABG Hemoglobin VBG pH Oxyhemoglobin Sodium Potassium Chloride Carbon Dioxide BUN Creatinine Glucose POC Glucose 351 H 249 H Lactic Acid Calcium AST ALT Alkaline Phosphatase CK-MB (CK-2) CK-MB (CK-2) Rel Index Total Protein Albumin TSH Urine WBC (Auto) > 182.0 H Salicylates 01/29/17 01/29/17 01/29/17 05:25 05:25 09:32 WBC 13.6 H RBC 3.25 L Hgb 8.3 L Hct 25.1 L MCV 77 L MCH 26 L RDW 16.8 H Plt Count 514 H Lymph % (Auto) Arthur % (Auto) Eos % (Auto) Arthur # Seg Neutrophils % Seg Neuts % (Manual) Lymphocytes % (Manual) Seg Neutrophils # Seg Neutrophils # Man Lymphocytes # (Manual) APTT POC ABG pH ABG pH POC ABG pCO2 POC ABG pO2 ABG pO2 ABG HCO3 ABG Base Excess ABG Hemoglobin VBG pH Oxyhemoglobin Sodium Potassium Chloride 97.8 L Carbon Dioxide BUN 34 H Creatinine Glucose 222 H POC Glucose Lactic Acid 2.50 H* Calcium AST ALT Alkaline Phosphatase CK-MB (CK-2) CK-MB (CK-2) Rel Index Total Protein Albumin TSH Urine WBC (Auto) Salicylates 01/29/17 01/29/17 01/29/17 11:56 18:11 23:55 WBC RBC Hgb Hct MCV MCH RDW Plt Count Lymph % (Auto) Arthur % (Auto) Eos % (Auto) Arthur # Seg Neutrophils % Seg Neuts % (Manual) Lymphocytes % (Manual) Seg Neutrophils # Seg Neutrophils # Man Lymphocytes # (Manual) APTT POC ABG pH ABG pH POC ABG pCO2 POC ABG pO2 ABG pO2 ABG HCO3 ABG Base Excess ABG Hemoglobin VBG pH Oxyhemoglobin Sodium Potassium Chloride Carbon Dioxide BUN Creatinine Glucose POC Glucose 261 H 215 H 176 H Lactic Acid Calcium AST ALT Alkaline Phosphatase CK-MB (CK-2) CK-MB (CK-2) Rel Index Total Protein Albumin TSH Urine WBC (Auto) Salicylates 01/30/17 01/30/17 01/30/17 05:31 05:31 05:34 WBC 15.2 H RBC 3.09 L Hgb 7.9 L Hct 23.9 L MCV 77 L MCH 26 L RDW 16.9 H Plt Count 569 H Lymph % (Auto) Arthur % (Auto) Eos % (Auto) Arthur # Seg Neutrophils % Seg Neuts % (Manual) Lymphocytes % (Manual) Seg Neutrophils # Seg Neutrophils # Man Lymphocytes # (Manual) APTT POC ABG pH ABG pH POC ABG pCO2 POC ABG pO2 ABG pO2 ABG HCO3 ABG Base Excess ABG Hemoglobin VBG pH Oxyhemoglobin Sodium Potassium Chloride Carbon Dioxide BUN 24 H Creatinine Glucose 235 H POC Glucose 243 H Lactic Acid Calcium AST ALT Alkaline Phosphatase CK-MB (CK-2) CK-MB (CK-2) Rel Index Total Protein Albumin TSH Urine WBC (Auto) Salicylates 01/30/17 01/30/17 01/30/17 11:38 17:58 23:29 WBC RBC Hgb Hct MCV MCH RDW Plt Count Lymph % (Auto) Arthur % (Auto) Eos % (Auto) Arthur # Seg Neutrophils % Seg Neuts % (Manual) Lymphocytes % (Manual) Seg Neutrophils # Seg Neutrophils # Man Lymphocytes # (Manual) APTT POC ABG pH ABG pH POC ABG pCO2 POC ABG pO2 ABG pO2 ABG HCO3 ABG Base Excess ABG Hemoglobin VBG pH Oxyhemoglobin Sodium Potassium Chloride Carbon Dioxide BUN Creatinine Glucose POC Glucose 298 H 208 H 245 H Lactic Acid Calcium AST ALT Alkaline Phosphatase CK-MB (CK-2) CK-MB (CK-2) Rel Index Total Protein Albumin TSH Urine WBC (Auto) Salicylates 01/31/17 01/31/17 01/31/17 04:39 04:39 05:57 WBC 11.4 H RBC 3.22 L Hgb 8.2 L Hct 24.9 L MCV 78 L MCH 25 L RDW 17.2 H Plt Count 576 H Lymph % (Auto) Arthur % (Auto) Eos % (Auto) Arthur # Seg Neutrophils % Seg Neuts % (Manual) Lymphocytes % (Manual) Seg Neutrophils # Seg Neutrophils # Man Lymphocytes # (Manual) APTT POC ABG pH ABG pH POC ABG pCO2 POC ABG pO2 ABG pO2 ABG HCO3 ABG Base Excess ABG Hemoglobin VBG pH Oxyhemoglobin Sodium Potassium Chloride Carbon Dioxide BUN Creatinine 0.7 L Glucose 223 H POC Glucose 264 H Lactic Acid Calcium AST ALT Alkaline Phosphatase CK-MB (CK-2) CK-MB (CK-2) Rel Index Total Protein Albumin TSH Urine WBC (Auto) Salicylates 01/31/17 01/31/17 01/31/17 12:23 17:41 18:55 WBC RBC Hgb Hct MCV MCH RDW Plt Count Lymph % (Auto) Arthur % (Auto) Eos % (Auto) Arthur # Seg Neutrophils % Seg Neuts % (Manual) Lymphocytes % (Manual) Seg Neutrophils # Seg Neutrophils # Man Lymphocytes # (Manual) APTT POC ABG pH ABG pH POC ABG pCO2 32.8 L POC ABG pO2 ABG pO2 ABG HCO3 ABG Base Excess ABG Hemoglobin VBG pH Oxyhemoglobin Sodium Potassium Chloride Carbon Dioxide BUN Creatinine Glucose POC Glucose 252 H 208 H Lactic Acid Calcium AST ALT Alkaline Phosphatase CK-MB (CK-2) CK-MB (CK-2) Rel Index Total Protein Albumin TSH Urine WBC (Auto) Salicylates 01/31/17 02/01/17 02/01/17 22:59 03:38 03:38 WBC RBC 2.81 L Hgb 7.4 L Hct 22.1 L MCV 79 L MCH 27 L RDW 17.0 H Plt Count 540 H Lymph % (Auto) Arthur % (Auto) Eos % (Auto) Arthur # Seg Neutrophils % Seg Neuts % (Manual) Lymphocytes % (Manual) Seg Neutrophils # Seg Neutrophils # Man Lymphocytes # (Manual) APTT POC ABG pH ABG pH POC ABG pCO2 POC ABG pO2 ABG pO2 ABG HCO3 ABG Base Excess ABG Hemoglobin VBG pH Oxyhemoglobin Sodium Potassium Chloride Carbon Dioxide 21 L BUN Creatinine 0.7 L Glucose POC Glucose 40 L Lactic Acid Calcium AST ALT Alkaline Phosphatase CK-MB (CK-2) CK-MB (CK-2) Rel Index Total Protein Albumin TSH Urine WBC (Auto) Salicylates 02/01/17 02/01/17 02/01/17 05:17 12:19 16:44 WBC RBC Hgb Hct MCV MCH RDW Plt Count Lymph % (Auto) Arthur % (Auto) Eos % (Auto) Arthur # Seg Neutrophils % Seg Neuts % (Manual) Lymphocytes % (Manual) Seg Neutrophils # Seg Neutrophils # Man Lymphocytes # (Manual) APTT POC ABG pH ABG pH POC ABG pCO2 POC ABG pO2 ABG pO2 ABG HCO3 ABG Base Excess ABG Hemoglobin VBG pH Oxyhemoglobin Sodium Potassium Chloride Carbon Dioxide BUN Creatinine Glucose POC Glucose 140 H 213 H 172 H Lactic Acid Calcium AST ALT Alkaline Phosphatase CK-MB (CK-2) CK-MB (CK-2) Rel Index Total Protein Albumin TSH Urine WBC (Auto) Salicylates 02/01/17 02/02/17 02/02/17 23:59 05:14 11:24 WBC RBC Hgb Hct MCV MCH RDW Plt Count Lymph % (Auto) Arthur % (Auto) Eos % (Auto) Arthur # Seg Neutrophils % Seg Neuts % (Manual) Lymphocytes % (Manual) Seg Neutrophils # Seg Neutrophils # Man Lymphocytes # (Manual) APTT POC ABG pH ABG pH POC ABG pCO2 POC ABG pO2 ABG pO2 ABG HCO3 ABG Base Excess ABG Hemoglobin VBG pH Oxyhemoglobin Sodium Potassium Chloride Carbon Dioxide BUN Creatinine Glucose POC Glucose 181 H 194 H 209 H Lactic Acid Calcium AST ALT Alkaline Phosphatase CK-MB (CK-2) CK-MB (CK-2) Rel Index Total Protein Albumin TSH Urine WBC (Auto) Salicylates 02/02/17 02/02/17 02/02/17 11:46 11:46 17:47 WBC RBC 2.94 L Hgb 7.5 L Hct 23.0 L MCV 78 L MCH 25 L RDW 16.9 H Plt Count 520 H Lymph % (Auto) Arthur % (Auto) Eos % (Auto) Arthur # Seg Neutrophils % Seg Neuts % (Manual) Lymphocytes % (Manual) Seg Neutrophils # Seg Neutrophils # Man Lymphocytes # (Manual) APTT POC ABG pH ABG pH POC ABG pCO2 POC ABG pO2 ABG pO2 ABG HCO3 ABG Base Excess ABG Hemoglobin VBG pH Oxyhemoglobin Sodium Potassium Chloride Carbon Dioxide BUN Creatinine 0.6 L Glucose 189 H POC Glucose 147 H Lactic Acid Calcium 8.1 L AST ALT Alkaline Phosphatase CK-MB (CK-2) CK-MB (CK-2) Rel Index Total Protein Albumin TSH Urine WBC (Auto) Salicylates 02/02/17 02/03/17 02/03/17 23:32 05:53 11:19 WBC RBC Hgb Hct MCV MCH RDW Plt Count Lymph % (Auto) Arthur % (Auto) Eos % (Auto) Arthur # Seg Neutrophils % Seg Neuts % (Manual) Lymphocytes % (Manual) Seg Neutrophils # Seg Neutrophils # Man Lymphocytes # (Manual) APTT POC ABG pH ABG pH POC ABG pCO2 POC ABG pO2 ABG pO2 ABG HCO3 ABG Base Excess ABG Hemoglobin VBG pH Oxyhemoglobin Sodium Potassium Chloride Carbon Dioxide BUN Creatinine Glucose POC Glucose 176 H 224 H 228 H Lactic Acid Calcium AST ALT Alkaline Phosphatase CK-MB (CK-2) CK-MB (CK-2) Rel Index Total Protein Albumin TSH Urine WBC (Auto) Salicylates 02/03/17 02/03/17 02/04/17 16:59 23:38 05:45 WBC RBC Hgb Hct MCV MCH RDW Plt Count Lymph % (Auto) Arthur % (Auto) Eos % (Auto) Arthur # Seg Neutrophils % Seg Neuts % (Manual) Lymphocytes % (Manual) Seg Neutrophils # Seg Neutrophils # Man Lymphocytes # (Manual) APTT POC ABG pH ABG pH POC ABG pCO2 POC ABG pO2 ABG pO2 ABG HCO3 ABG Base Excess ABG Hemoglobin VBG pH Oxyhemoglobin Sodium Potassium Chloride Carbon Dioxide BUN Creatinine Glucose POC Glucose 189 H 191 H 251 H Lactic Acid Calcium AST ALT Alkaline Phosphatase CK-MB (CK-2) CK-MB (CK-2) Rel Index Total Protein Albumin TSH Urine WBC (Auto) Salicylates 02/04/17 02/04/17 02/05/17 11:20 17:20 00:17 WBC RBC Hgb Hct MCV MCH RDW Plt Count Lymph % (Auto) Arthur % (Auto) Eos % (Auto) Arthur # Seg Neutrophils % Seg Neuts % (Manual) Lymphocytes % (Manual) Seg Neutrophils # Seg Neutrophils # Man Lymphocytes # (Manual) APTT POC ABG pH ABG pH POC ABG pCO2 POC ABG pO2 ABG pO2 ABG HCO3 ABG Base Excess ABG Hemoglobin VBG pH Oxyhemoglobin Sodium Potassium Chloride Carbon Dioxide BUN Creatinine Glucose POC Glucose 243 H 163 H 200 H Lactic Acid Calcium AST ALT Alkaline Phosphatase CK-MB (CK-2) CK-MB (CK-2) Rel Index Total Protein Albumin TSH Urine WBC (Auto) Salicylates 02/05/17 02/05/17 02/05/17 05:38 12:38 16:29 WBC RBC Hgb Hct MCV MCH RDW Plt Count Lymph % (Auto) Arthur % (Auto) Eos % (Auto) Arthur # Seg Neutrophils % Seg Neuts % (Manual) Lymphocytes % (Manual) Seg Neutrophils # Seg Neutrophils # Man Lymphocytes # (Manual) APTT POC ABG pH ABG pH POC ABG pCO2 POC ABG pO2 ABG pO2 ABG HCO3 ABG Base Excess ABG Hemoglobin VBG pH Oxyhemoglobin Sodium Potassium Chloride Carbon Dioxide BUN Creatinine Glucose POC Glucose 248 H 241 H 257 H Lactic Acid Calcium AST ALT Alkaline Phosphatase CK-MB (CK-2) CK-MB (CK-2) Rel Index Total Protein Albumin TSH Urine WBC (Auto) Salicylates 02/05/17 02/06/17 02/06/17 23:56 05:30 11:50 WBC RBC Hgb Hct MCV MCH RDW Plt Count Lymph % (Auto) Arthur % (Auto) Eos % (Auto) Arthur # Seg Neutrophils % Seg Neuts % (Manual) Lymphocytes % (Manual) Seg Neutrophils # Seg Neutrophils # Man Lymphocytes # (Manual) APTT POC ABG pH ABG pH POC ABG pCO2 POC ABG pO2 ABG pO2 ABG HCO3 ABG Base Excess ABG Hemoglobin VBG pH Oxyhemoglobin Sodium Potassium Chloride Carbon Dioxide BUN Creatinine Glucose POC Glucose 258 H 120 H 254 H Lactic Acid Calcium AST ALT Alkaline Phosphatase CK-MB (CK-2) CK-MB (CK-2) Rel Index Total Protein Albumin TSH Urine WBC (Auto) Salicylates 02/06/17 02/06/17 02/07/17 17:11 23:50 05:22 WBC RBC Hgb Hct MCV MCH RDW Plt Count Lymph % (Auto) Arthur % (Auto) Eos % (Auto) Arthur # Seg Neutrophils % Seg Neuts % (Manual) Lymphocytes % (Manual) Seg Neutrophils # Seg Neutrophils # Man Lymphocytes # (Manual) APTT POC ABG pH ABG pH POC ABG pCO2 POC ABG pO2 ABG pO2 ABG HCO3 ABG Base Excess ABG Hemoglobin VBG pH Oxyhemoglobin Sodium Potassium Chloride Carbon Dioxide BUN Creatinine Glucose POC Glucose 149 H 240 H 258 H Lactic Acid Calcium AST ALT Alkaline Phosphatase CK-MB (CK-2) CK-MB (CK-2) Rel Index Total Protein Albumin TSH Urine WBC (Auto) Salicylates 02/07/17 02/07/17 02/07/17 11:15 18:33 23:59 WBC RBC Hgb Hct MCV MCH RDW Plt Count Lymph % (Auto) Arthur % (Auto) Eos % (Auto) Arthur # Seg Neutrophils % Seg Neuts % (Manual) Lymphocytes % (Manual) Seg Neutrophils # Seg Neutrophils # Man Lymphocytes # (Manual) APTT POC ABG pH ABG pH POC ABG pCO2 POC ABG pO2 ABG pO2 ABG HCO3 ABG Base Excess ABG Hemoglobin VBG pH Oxyhemoglobin Sodium Potassium Chloride Carbon Dioxide BUN Creatinine Glucose POC Glucose 239 H 176 H 186 H Lactic Acid Calcium AST ALT Alkaline Phosphatase CK-MB (CK-2) CK-MB (CK-2) Rel Index Total Protein Albumin TSH Urine WBC (Auto) Salicylates 02/08/17 02/08/17 02/08/17 06:15 11:55 16:55 WBC RBC Hgb Hct MCV MCH RDW Plt Count Lymph % (Auto) Arthur % (Auto) Eos % (Auto) Arthur # Seg Neutrophils % Seg Neuts % (Manual) Lymphocytes % (Manual) Seg Neutrophils # Seg Neutrophils # Man Lymphocytes # (Manual) APTT POC ABG pH ABG pH POC ABG pCO2 POC ABG pO2 ABG pO2 ABG HCO3 ABG Base Excess ABG Hemoglobin VBG pH Oxyhemoglobin Sodium Potassium Chloride Carbon Dioxide BUN Creatinine Glucose POC Glucose 195 H 129 H 246 H Lactic Acid Calcium AST ALT Alkaline Phosphatase CK-MB (CK-2) CK-MB (CK-2) Rel Index Total Protein Albumin TSH Urine WBC (Auto) Salicylates 02/08/17 02/09/17 02/09/17 23:51 05:51 07:24 WBC 14.7 H RBC 3.39 L Hgb 8.9 L Hct 26.4 L MCV 78 L MCH 26 L RDW 18.4 H Plt Count 670 H Lymph % (Auto) 11.8 L Arthur % (Auto) Eos % (Auto) Arthur # Seg Neutrophils % 81.2 H Seg Neuts % (Manual) Lymphocytes % (Manual) Seg Neutrophils # 11.9 H Seg Neutrophils # Man Lymphocytes # (Manual) APTT POC ABG pH ABG pH POC ABG pCO2 POC ABG pO2 ABG pO2 ABG HCO3 ABG Base Excess ABG Hemoglobin VBG pH Oxyhemoglobin Sodium Potassium Chloride Carbon Dioxide BUN Creatinine Glucose POC Glucose 262 H 295 H Lactic Acid Calcium AST ALT Alkaline Phosphatase CK-MB (CK-2) CK-MB (CK-2) Rel Index Total Protein Albumin TSH Urine WBC (Auto) Salicylates 02/09/17 02/09/17 02/09/17 07:24 12:08 18:39 WBC RBC Hgb Hct MCV MCH RDW Plt Count Lymph % (Auto) Arthur % (Auto) Eos % (Auto) Arthur # Seg Neutrophils % Seg Neuts % (Manual) Lymphocytes % (Manual) Seg Neutrophils # Seg Neutrophils # Man Lymphocytes # (Manual) APTT POC ABG pH ABG pH POC ABG pCO2 POC ABG pO2 ABG pO2 ABG HCO3 ABG Base Excess ABG Hemoglobin VBG pH Oxyhemoglobin Sodium Potassium Chloride 95.5 L Carbon Dioxide BUN 52 H Creatinine Glucose 277 H POC Glucose 236 H 151 H Lactic Acid Calcium AST ALT Alkaline Phosphatase CK-MB (CK-2) CK-MB (CK-2) Rel Index Total Protein Albumin TSH Urine WBC (Auto) Salicylates 02/10/17 02/10/17 02/10/17 00:01 05:44 11:21 WBC RBC Hgb Hct MCV MCH RDW Plt Count Lymph % (Auto) Arthur % (Auto) Eos % (Auto) Arthur # Seg Neutrophils % Seg Neuts % (Manual) Lymphocytes % (Manual) Seg Neutrophils # Seg Neutrophils # Man Lymphocytes # (Manual) APTT POC ABG pH ABG pH POC ABG pCO2 POC ABG pO2 ABG pO2 ABG HCO3 ABG Base Excess ABG Hemoglobin VBG pH Oxyhemoglobin Sodium Potassium Chloride Carbon Dioxide BUN Creatinine Glucose POC Glucose 210 H 201 H 233 H Lactic Acid Calcium AST ALT Alkaline Phosphatase CK-MB (CK-2) CK-MB (CK-2) Rel Index Total Protein Albumin TSH Urine WBC (Auto) Salicylates 02/10/17 02/10/17 02/11/17 17:29 23:56 05:24 WBC RBC Hgb Hct MCV MCH RDW Plt Count Lymph % (Auto) Arthur % (Auto) Eos % (Auto) Arthur # Seg Neutrophils % Seg Neuts % (Manual) Lymphocytes % (Manual) Seg Neutrophils # Seg Neutrophils # Man Lymphocytes # (Manual) APTT POC ABG pH ABG pH POC ABG pCO2 POC ABG pO2 ABG pO2 ABG HCO3 ABG Base Excess ABG Hemoglobin VBG pH Oxyhemoglobin Sodium Potassium Chloride Carbon Dioxide BUN Creatinine Glucose POC Glucose 167 H 191 H 135 H Lactic Acid Calcium AST ALT Alkaline Phosphatase CK-MB (CK-2) CK-MB (CK-2) Rel Index Total Protein Albumin TSH Urine WBC (Auto) Salicylates 02/11/17 02/11/17 02/11/17 12:25 17:03 23:59 WBC RBC Hgb Hct MCV MCH RDW Plt Count Lymph % (Auto) Arthur % (Auto) Eos % (Auto) Arthur # Seg Neutrophils % Seg Neuts % (Manual) Lymphocytes % (Manual) Seg Neutrophils # Seg Neutrophils # Man Lymphocytes # (Manual) APTT POC ABG pH ABG pH POC ABG pCO2 POC ABG pO2 ABG pO2 ABG HCO3 ABG Base Excess ABG Hemoglobin VBG pH Oxyhemoglobin Sodium Potassium Chloride Carbon Dioxide BUN Creatinine Glucose POC Glucose 275 H 172 H 215 H Lactic Acid Calcium AST ALT Alkaline Phosphatase CK-MB (CK-2) CK-MB (CK-2) Rel Index Total Protein Albumin TSH Urine WBC (Auto) Salicylates 02/12/17 02/12/17 02/12/17 05:39 11:33 17:55 WBC RBC Hgb Hct MCV MCH RDW Plt Count Lymph % (Auto) Arthur % (Auto) Eos % (Auto) Arthur # Seg Neutrophils % Seg Neuts % (Manual) Lymphocytes % (Manual) Seg Neutrophils # Seg Neutrophils # Man Lymphocytes # (Manual) APTT POC ABG pH ABG pH POC ABG pCO2 POC ABG pO2 ABG pO2 ABG HCO3 ABG Base Excess ABG Hemoglobin VBG pH Oxyhemoglobin Sodium Potassium Chloride Carbon Dioxide BUN Creatinine Glucose POC Glucose 261 H 217 H 172 H Lactic Acid Calcium AST ALT Alkaline Phosphatase CK-MB (CK-2) CK-MB (CK-2) Rel Index Total Protein Albumin TSH Urine WBC (Auto) Salicylates 02/13/17 02/13/17 02/13/17 00:25 06:46 11:26 WBC RBC Hgb Hct MCV MCH RDW Plt Count Lymph % (Auto) Arthur % (Auto) Eos % (Auto) Arthur # Seg Neutrophils % Seg Neuts % (Manual) Lymphocytes % (Manual) Seg Neutrophils # Seg Neutrophils # Man Lymphocytes # (Manual) APTT POC ABG pH ABG pH POC ABG pCO2 POC ABG pO2 ABG pO2 ABG HCO3 ABG Base Excess ABG Hemoglobin VBG pH Oxyhemoglobin Sodium Potassium Chloride Carbon Dioxide BUN Creatinine Glucose POC Glucose 207 H 219 H 231 H Lactic Acid Calcium AST ALT Alkaline Phosphatase CK-MB (CK-2) CK-MB (CK-2) Rel Index Total Protein Albumin TSH Urine WBC (Auto) Salicylates 02/13/17 02/13/17 02/14/17 17:12 23:44 05:44 WBC RBC Hgb Hct MCV MCH RDW Plt Count Lymph % (Auto) Arthur % (Auto) Eos % (Auto) Arthur # Seg Neutrophils % Seg Neuts % (Manual) Lymphocytes % (Manual) Seg Neutrophils # Seg Neutrophils # Man Lymphocytes # (Manual) APTT POC ABG pH ABG pH POC ABG pCO2 POC ABG pO2 ABG pO2 ABG HCO3 ABG Base Excess ABG Hemoglobin VBG pH Oxyhemoglobin Sodium Potassium Chloride Carbon Dioxide BUN Creatinine Glucose POC Glucose 190 H 256 H 184 H Lactic Acid Calcium AST ALT Alkaline Phosphatase CK-MB (CK-2) CK-MB (CK-2) Rel Index Total Protein Albumin TSH Urine WBC (Auto) Salicylates 02/14/17 02/14/17 02/14/17 12:21 17:57 23:18 WBC RBC Hgb Hct MCV MCH RDW Plt Count Lymph % (Auto) Arthur % (Auto) Eos % (Auto) Arthur # Seg Neutrophils % Seg Neuts % (Manual) Lymphocytes % (Manual) Seg Neutrophils # Seg Neutrophils # Man Lymphocytes # (Manual) APTT POC ABG pH ABG pH POC ABG pCO2 POC ABG pO2 ABG pO2 ABG HCO3 ABG Base Excess ABG Hemoglobin VBG pH Oxyhemoglobin Sodium Potassium Chloride Carbon Dioxide BUN Creatinine Glucose POC Glucose 233 H 155 H 165 H Lactic Acid Calcium AST ALT Alkaline Phosphatase CK-MB (CK-2) CK-MB (CK-2) Rel Index Total Protein Albumin TSH Urine WBC (Auto) Salicylates 02/15/17 02/15/17 02/15/17 05:33 11:45 17:20 WBC RBC Hgb Hct MCV MCH RDW Plt Count Lymph % (Auto) Arthur % (Auto) Eos % (Auto) Arthur # Seg Neutrophils % Seg Neuts % (Manual) Lymphocytes % (Manual) Seg Neutrophils # Seg Neutrophils # Man Lymphocytes # (Manual) APTT POC ABG pH ABG pH POC ABG pCO2 POC ABG pO2 ABG pO2 ABG HCO3 ABG Base Excess ABG Hemoglobin VBG pH Oxyhemoglobin Sodium Potassium Chloride Carbon Dioxide BUN Creatinine Glucose POC Glucose 239 H 130 H 189 H Lactic Acid Calcium AST ALT Alkaline Phosphatase CK-MB (CK-2) CK-MB (CK-2) Rel Index Total Protein Albumin TSH Urine WBC (Auto) Salicylates 02/16/17 02/16/17 02/16/17 00:14 05:09 12:31 WBC RBC Hgb Hct MCV MCH RDW Plt Count Lymph % (Auto) Arthur % (Auto) Eos % (Auto) Arthur # Seg Neutrophils % Seg Neuts % (Manual) Lymphocytes % (Manual) Seg Neutrophils # Seg Neutrophils # Man Lymphocytes # (Manual) APTT POC ABG pH ABG pH POC ABG pCO2 POC ABG pO2 ABG pO2 ABG HCO3 ABG Base Excess ABG Hemoglobin VBG pH Oxyhemoglobin Sodium Potassium Chloride Carbon Dioxide BUN Creatinine Glucose POC Glucose 197 H 226 H 178 H Lactic Acid Calcium AST ALT Alkaline Phosphatase CK-MB (CK-2) CK-MB (CK-2) Rel Index Total Protein Albumin TSH Urine WBC (Auto) Salicylates 02/16/17 02/16/17 02/17/17 16:35 23:49 05:37 WBC RBC Hgb Hct MCV MCH RDW Plt Count Lymph % (Auto) Arthur % (Auto) Eos % (Auto) Arthur # Seg Neutrophils % Seg Neuts % (Manual) Lymphocytes % (Manual) Seg Neutrophils # Seg Neutrophils # Man Lymphocytes # (Manual) APTT POC ABG pH ABG pH POC ABG pCO2 POC ABG pO2 ABG pO2 ABG HCO3 ABG Base Excess ABG Hemoglobin VBG pH Oxyhemoglobin Sodium Potassium Chloride Carbon Dioxide BUN Creatinine Glucose POC Glucose 174 H 62 L 153 H Lactic Acid Calcium AST ALT Alkaline Phosphatase CK-MB (CK-2) CK-MB (CK-2) Rel Index Total Protein Albumin TSH Urine WBC (Auto) Salicylates 02/17/17 02/17/17 02/17/17 11:39 17:02 22:24 WBC RBC Hgb Hct MCV MCH RDW Plt Count Lymph % (Auto) Arthur % (Auto) Eos % (Auto) Arthur # Seg Neutrophils % Seg Neuts % (Manual) Lymphocytes % (Manual) Seg Neutrophils # Seg Neutrophils # Man Lymphocytes # (Manual) APTT POC ABG pH ABG pH POC ABG pCO2 POC ABG pO2 ABG pO2 ABG HCO3 ABG Base Excess ABG Hemoglobin VBG pH Oxyhemoglobin Sodium Potassium Chloride Carbon Dioxide BUN Creatinine Glucose POC Glucose 231 H 112 H 116 H Lactic Acid Calcium AST ALT Alkaline Phosphatase CK-MB (CK-2) CK-MB (CK-2) Rel Index Total Protein Albumin TSH Urine WBC (Auto) Salicylates 02/18/17 02/19/17 02/19/17 15:34 05:09 07:57 WBC RBC Hgb Hct MCV MCH RDW Plt Count Lymph % (Auto) Arthur % (Auto) Eos % (Auto) Arthur # Seg Neutrophils % Seg Neuts % (Manual) Lymphocytes % (Manual) Seg Neutrophils # Seg Neutrophils # Man Lymphocytes # (Manual) APTT POC ABG pH ABG pH POC ABG pCO2 POC ABG pO2 ABG pO2 ABG HCO3 ABG Base Excess ABG Hemoglobin VBG pH Oxyhemoglobin Sodium Potassium Chloride Carbon Dioxide BUN Creatinine Glucose POC Glucose 215 H 218 H 283 H Lactic Acid Calcium AST ALT Alkaline Phosphatase CK-MB (CK-2) CK-MB (CK-2) Rel Index Total Protein Albumin TSH Urine WBC (Auto) Salicylates 02/19/17 02/19/17 02/20/17 14:49 22:10 05:10 WBC RBC Hgb Hct MCV MCH RDW Plt Count Lymph % (Auto) Arthur % (Auto) Eos % (Auto) Arthur # Seg Neutrophils % Seg Neuts % (Manual) Lymphocytes % (Manual) Seg Neutrophils # Seg Neutrophils # Man Lymphocytes # (Manual) APTT POC ABG pH ABG pH POC ABG pCO2 POC ABG pO2 ABG pO2 ABG HCO3 ABG Base Excess ABG Hemoglobin VBG pH Oxyhemoglobin Sodium Potassium Chloride Carbon Dioxide BUN Creatinine Glucose POC Glucose 290 H 169 H 209 H Lactic Acid Calcium AST ALT Alkaline Phosphatase CK-MB (CK-2) CK-MB (CK-2) Rel Index Total Protein Albumin TSH Urine WBC (Auto) Salicylates 02/20/17 02/20/17 02/21/17 15:05 21:52 02:00 WBC RBC Hgb Hct MCV MCH RDW Plt Count Lymph % (Auto) Arthur % (Auto) Eos % (Auto) Arthur # Seg Neutrophils % Seg Neuts % (Manual) Lymphocytes % (Manual) Seg Neutrophils # Seg Neutrophils # Man Lymphocytes # (Manual) APTT POC ABG pH ABG pH POC ABG pCO2 POC ABG pO2 ABG pO2 ABG HCO3 ABG Base Excess ABG Hemoglobin VBG pH Oxyhemoglobin Sodium Potassium Chloride Carbon Dioxide BUN Creatinine Glucose POC Glucose 172 H 209 H 216 H Lactic Acid Calcium AST ALT Alkaline Phosphatase CK-MB (CK-2) CK-MB (CK-2) Rel Index Total Protein Albumin TSH Urine WBC (Auto) Salicylates 02/21/17 02/21/17 02/21/17 04:54 14:43 17:47 WBC RBC Hgb Hct MCV MCH RDW Plt Count Lymph % (Auto) Arthur % (Auto) Eos % (Auto) Arthur # Seg Neutrophils % Seg Neuts % (Manual) Lymphocytes % (Manual) Seg Neutrophils # Seg Neutrophils # Man Lymphocytes # (Manual) APTT POC ABG pH ABG pH POC ABG pCO2 POC ABG pO2 ABG pO2 ABG HCO3 ABG Base Excess ABG Hemoglobin VBG pH Oxyhemoglobin Sodium Potassium Chloride Carbon Dioxide BUN Creatinine Glucose POC Glucose 227 H 290 H 220 H Lactic Acid Calcium AST ALT Alkaline Phosphatase CK-MB (CK-2) CK-MB (CK-2) Rel Index Total Protein Albumin TSH Urine WBC (Auto) Salicylates 02/21/17 02/22/17 02/22/17 22:02 04:52 15:25 WBC RBC Hgb Hct MCV MCH RDW Plt Count Lymph % (Auto) Arthur % (Auto) Eos % (Auto) Arthur # Seg Neutrophils % Seg Neuts % (Manual) Lymphocytes % (Manual) Seg Neutrophils # Seg Neutrophils # Man Lymphocytes # (Manual) APTT POC ABG pH ABG pH POC ABG pCO2 POC ABG pO2 ABG pO2 ABG HCO3 ABG Base Excess ABG Hemoglobin VBG pH Oxyhemoglobin Sodium Potassium Chloride Carbon Dioxide BUN Creatinine Glucose POC Glucose 246 H 212 H 236 H Lactic Acid Calcium AST ALT Alkaline Phosphatase CK-MB (CK-2) CK-MB (CK-2) Rel Index Total Protein Albumin TSH Urine WBC (Auto) Salicylates 02/22/17 02/23/17 02/23/17 21:33 06:04 10:00 WBC RBC Hgb Hct MCV MCH RDW Plt Count Lymph % (Auto) Arthur % (Auto) Eos % (Auto) Arthur # Seg Neutrophils % Seg Neuts % (Manual) Lymphocytes % (Manual) Seg Neutrophils # Seg Neutrophils # Man Lymphocytes # (Manual) APTT POC ABG pH ABG pH POC ABG pCO2 POC ABG pO2 ABG pO2 ABG HCO3 ABG Base Excess ABG Hemoglobin VBG pH Oxyhemoglobin Sodium Potassium Chloride Carbon Dioxide BUN Creatinine Glucose POC Glucose 255 H 208 H 174 H Lactic Acid Calcium AST ALT Alkaline Phosphatase CK-MB (CK-2) CK-MB (CK-2) Rel Index Total Protein Albumin TSH Urine WBC (Auto) Salicylates 02/23/17 02/23/17 02/23/17 12:52 17:15 21:51 WBC RBC Hgb Hct MCV MCH RDW Plt Count Lymph % (Auto) Arthur % (Auto) Eos % (Auto) Arthur # Seg Neutrophils % Seg Neuts % (Manual) Lymphocytes % (Manual) Seg Neutrophils # Seg Neutrophils # Man Lymphocytes # (Manual) APTT POC ABG pH ABG pH POC ABG pCO2 POC ABG pO2 ABG pO2 ABG HCO3 ABG Base Excess ABG Hemoglobin VBG pH Oxyhemoglobin Sodium Potassium Chloride Carbon Dioxide BUN Creatinine Glucose POC Glucose 203 H 269 H 205 H Lactic Acid Calcium AST ALT Alkaline Phosphatase CK-MB (CK-2) CK-MB (CK-2) Rel Index Total Protein Albumin TSH Urine WBC (Auto) Salicylates 02/24/17 02/24/17 02/24/17 10:23 17:45 21:24 WBC RBC Hgb Hct MCV MCH RDW Plt Count Lymph % (Auto) Arthur % (Auto) Eos % (Auto) Arthur # Seg Neutrophils % Seg Neuts % (Manual) Lymphocytes % (Manual) Seg Neutrophils # Seg Neutrophils # Man Lymphocytes # (Manual) APTT POC ABG pH ABG pH POC ABG pCO2 POC ABG pO2 ABG pO2 ABG HCO3 ABG Base Excess ABG Hemoglobin VBG pH Oxyhemoglobin Sodium Potassium Chloride Carbon Dioxide BUN Creatinine Glucose POC Glucose 280 H 239 H 254 H Lactic Acid Calcium AST ALT Alkaline Phosphatase CK-MB (CK-2) CK-MB (CK-2) Rel Index Total Protein Albumin TSH Urine WBC (Auto) Salicylates 02/25/17 02/25/17 02/25/17 02:12 05:17 14:32 WBC RBC Hgb Hct MCV MCH RDW Plt Count Lymph % (Auto) Arthur % (Auto) Eos % (Auto) Arthur # Seg Neutrophils % Seg Neuts % (Manual) Lymphocytes % (Manual) Seg Neutrophils # Seg Neutrophils # Man Lymphocytes # (Manual) APTT POC ABG pH ABG pH POC ABG pCO2 POC ABG pO2 ABG pO2 ABG HCO3 ABG Base Excess ABG Hemoglobin VBG pH Oxyhemoglobin Sodium Potassium Chloride Carbon Dioxide BUN Creatinine Glucose POC Glucose 296 H 332 H 353 H Lactic Acid Calcium AST ALT Alkaline Phosphatase CK-MB (CK-2) CK-MB (CK-2) Rel Index Total Protein Albumin TSH Urine WBC (Auto) Salicylates 02/25/17 02/26/17 02/26/17 22:14 00:37 05:52 WBC RBC Hgb Hct MCV MCH RDW Plt Count Lymph % (Auto) Arthur % (Auto) Eos % (Auto) Arthur # Seg Neutrophils % Seg Neuts % (Manual) Lymphocytes % (Manual) Seg Neutrophils # Seg Neutrophils # Man Lymphocytes # (Manual) APTT POC ABG pH ABG pH POC ABG pCO2 POC ABG pO2 ABG pO2 ABG HCO3 ABG Base Excess ABG Hemoglobin VBG pH Oxyhemoglobin Sodium Potassium Chloride Carbon Dioxide BUN Creatinine Glucose POC Glucose 201 H 233 H 269 H Lactic Acid Calcium AST ALT Alkaline Phosphatase CK-MB (CK-2) CK-MB (CK-2) Rel Index Total Protein Albumin TSH Urine WBC (Auto) Salicylates 02/26/17 02/26/17 02/26/17 11:48 13:49 21:26 WBC RBC Hgb Hct MCV MCH RDW Plt Count Lymph % (Auto) Arthur % (Auto) Eos % (Auto) Arthur # Seg Neutrophils % Seg Neuts % (Manual) Lymphocytes % (Manual) Seg Neutrophils # Seg Neutrophils # Man Lymphocytes # (Manual) APTT POC ABG pH ABG pH POC ABG pCO2 POC ABG pO2 ABG pO2 ABG HCO3 ABG Base Excess ABG Hemoglobin VBG pH Oxyhemoglobin Sodium Potassium Chloride Carbon Dioxide BUN Creatinine Glucose POC Glucose 333 H 322 H 244 H Lactic Acid Calcium AST ALT Alkaline Phosphatase CK-MB (CK-2) CK-MB (CK-2) Rel Index Total Protein Albumin TSH Urine WBC (Auto) Salicylates 02/27/17 02/27/17 02/27/17 05:27 13:51 21:48 WBC RBC Hgb Hct MCV MCH RDW Plt Count Lymph % (Auto) Arthur % (Auto) Eos % (Auto) Arthur # Seg Neutrophils % Seg Neuts % (Manual) Lymphocytes % (Manual) Seg Neutrophils # Seg Neutrophils # Man Lymphocytes # (Manual) APTT POC ABG pH ABG pH POC ABG pCO2 POC ABG pO2 ABG pO2 ABG HCO3 ABG Base Excess ABG Hemoglobin VBG pH Oxyhemoglobin Sodium Potassium Chloride Carbon Dioxide BUN Creatinine Glucose POC Glucose 217 H 239 H 254 H Lactic Acid Calcium AST ALT Alkaline Phosphatase CK-MB (CK-2) CK-MB (CK-2) Rel Index Total Protein Albumin TSH Urine WBC (Auto) Salicylates 02/28/17 02/28/17 02/28/17 05:38 11:00 19:44 WBC RBC Hgb Hct MCV MCH RDW Plt Count Lymph % (Auto) Arthur % (Auto) Eos % (Auto) Arthur # Seg Neutrophils % Seg Neuts % (Manual) Lymphocytes % (Manual) Seg Neutrophils # Seg Neutrophils # Man Lymphocytes # (Manual) APTT POC ABG pH ABG pH POC ABG pCO2 POC ABG pO2 ABG pO2 ABG HCO3 ABG Base Excess ABG Hemoglobin VBG pH Oxyhemoglobin Sodium Potassium Chloride Carbon Dioxide BUN Creatinine Glucose POC Glucose 325 H 203 H 116 H Lactic Acid Calcium AST ALT Alkaline Phosphatase CK-MB (CK-2) CK-MB (CK-2) Rel Index Total Protein Albumin TSH Urine WBC (Auto) Salicylates 03/01/17 03/01/17 03/01/17 00:08 05:31 12:17 WBC RBC Hgb Hct MCV MCH RDW Plt Count Lymph % (Auto) Arthur % (Auto) Eos % (Auto) Arthur # Seg Neutrophils % Seg Neuts % (Manual) Lymphocytes % (Manual) Seg Neutrophils # Seg Neutrophils # Man Lymphocytes # (Manual) APTT POC ABG pH ABG pH POC ABG pCO2 POC ABG pO2 ABG pO2 ABG HCO3 ABG Base Excess ABG Hemoglobin VBG pH Oxyhemoglobin Sodium Potassium Chloride Carbon Dioxide BUN Creatinine Glucose POC Glucose 202 H 183 H 184 H Lactic Acid Calcium AST ALT Alkaline Phosphatase CK-MB (CK-2) CK-MB (CK-2) Rel Index Total Protein Albumin TSH Urine WBC (Auto) Salicylates 03/02/17 03/02/17 03/02/17 00:12 05:58 18:22 WBC RBC Hgb Hct MCV MCH RDW Plt Count Lymph % (Auto) Arthur % (Auto) Eos % (Auto) Arthur # Seg Neutrophils % Seg Neuts % (Manual) Lymphocytes % (Manual) Seg Neutrophils # Seg Neutrophils # Man Lymphocytes # (Manual) APTT POC ABG pH ABG pH POC ABG pCO2 POC ABG pO2 ABG pO2 ABG HCO3 ABG Base Excess ABG Hemoglobin VBG pH Oxyhemoglobin Sodium Potassium Chloride Carbon Dioxide BUN Creatinine Glucose POC Glucose 117 H 176 H 156 H Lactic Acid Calcium AST ALT Alkaline Phosphatase CK-MB (CK-2) CK-MB (CK-2) Rel Index Total Protein Albumin TSH Urine WBC (Auto) Salicylates 03/02/17 03/03/17 03/03/17 23:51 05:44 11:32 WBC RBC Hgb Hct MCV MCH RDW Plt Count Lymph % (Auto) Arthur % (Auto) Eos % (Auto) Arthur # Seg Neutrophils % Seg Neuts % (Manual) Lymphocytes % (Manual) Seg Neutrophils # Seg Neutrophils # Man Lymphocytes # (Manual) APTT POC ABG pH ABG pH POC ABG pCO2 POC ABG pO2 ABG pO2 ABG HCO3 ABG Base Excess ABG Hemoglobin VBG pH Oxyhemoglobin Sodium Potassium Chloride Carbon Dioxide BUN Creatinine Glucose POC Glucose 211 H 117 H 133 H Lactic Acid Calcium AST ALT Alkaline Phosphatase CK-MB (CK-2) CK-MB (CK-2) Rel Index Total Protein Albumin TSH Urine WBC (Auto) Salicylates 03/03/17 03/03/17 03/04/17 17:43 23:17 05:30 WBC RBC Hgb Hct MCV MCH RDW Plt Count Lymph % (Auto) Arthur % (Auto) Eos % (Auto) Arthur # Seg Neutrophils % Seg Neuts % (Manual) Lymphocytes % (Manual) Seg Neutrophils # Seg Neutrophils # Man Lymphocytes # (Manual) APTT POC ABG pH ABG pH POC ABG pCO2 POC ABG pO2 ABG pO2 ABG HCO3 ABG Base Excess ABG Hemoglobin VBG pH Oxyhemoglobin Sodium Potassium Chloride Carbon Dioxide BUN Creatinine Glucose POC Glucose 206 H 170 H 126 H Lactic Acid Calcium AST ALT Alkaline Phosphatase CK-MB (CK-2) CK-MB (CK-2) Rel Index Total Protein Albumin TSH Urine WBC (Auto) Salicylates 03/04/17 03/04/17 03/05/17 12:17 17:27 05:20 WBC RBC Hgb Hct MCV MCH RDW Plt Count Lymph % (Auto) Arthur % (Auto) Eos % (Auto) Arthur # Seg Neutrophils % Seg Neuts % (Manual) Lymphocytes % (Manual) Seg Neutrophils # Seg Neutrophils # Man Lymphocytes # (Manual) APTT POC ABG pH ABG pH POC ABG pCO2 POC ABG pO2 ABG pO2 ABG HCO3 ABG Base Excess ABG Hemoglobin VBG pH Oxyhemoglobin Sodium Potassium Chloride Carbon Dioxide BUN Creatinine Glucose POC Glucose 135 H 121 H 185 H Lactic Acid Calcium AST ALT Alkaline Phosphatase CK-MB (CK-2) CK-MB (CK-2) Rel Index Total Protein Albumin TSH Urine WBC (Auto) Salicylates 03/05/17 03/06/17 03/06/17 11:50 11:52 17:34 WBC RBC Hgb Hct MCV MCH RDW Plt Count Lymph % (Auto) Arthur % (Auto) Eos % (Auto) Arthur # Seg Neutrophils % Seg Neuts % (Manual) Lymphocytes % (Manual) Seg Neutrophils # Seg Neutrophils # Man Lymphocytes # (Manual) APTT POC ABG pH ABG pH POC ABG pCO2 POC ABG pO2 ABG pO2 ABG HCO3 ABG Base Excess ABG Hemoglobin VBG pH Oxyhemoglobin Sodium Potassium Chloride Carbon Dioxide BUN Creatinine Glucose POC Glucose 116 H 133 H 181 H Lactic Acid Calcium AST ALT Alkaline Phosphatase CK-MB (CK-2) CK-MB (CK-2) Rel Index Total Protein Albumin TSH Urine WBC (Auto) Salicylates 03/07/17 03/07/17 03/07/17 05:21 11:36 17:49 WBC RBC Hgb Hct MCV MCH RDW Plt Count Lymph % (Auto) Arthur % (Auto) Eos % (Auto) Arthur # Seg Neutrophils % Seg Neuts % (Manual) Lymphocytes % (Manual) Seg Neutrophils # Seg Neutrophils # Man Lymphocytes # (Manual) APTT POC ABG pH ABG pH POC ABG pCO2 POC ABG pO2 ABG pO2 ABG HCO3 ABG Base Excess ABG Hemoglobin VBG pH Oxyhemoglobin Sodium Potassium Chloride Carbon Dioxide BUN Creatinine Glucose POC Glucose 159 H 137 H 158 H Lactic Acid Calcium AST ALT Alkaline Phosphatase CK-MB (CK-2) CK-MB (CK-2) Rel Index Total Protein Albumin TSH Urine WBC (Auto) Salicylates 03/08/17 03/08/17 03/08/17 05:51 13:58 23:50 WBC RBC Hgb Hct MCV MCH RDW Plt Count Lymph % (Auto) Arthur % (Auto) Eos % (Auto) Arthur # Seg Neutrophils % Seg Neuts % (Manual) Lymphocytes % (Manual) Seg Neutrophils # Seg Neutrophils # Man Lymphocytes # (Manual) APTT POC ABG pH ABG pH POC ABG pCO2 POC ABG pO2 ABG pO2 ABG HCO3 ABG Base Excess ABG Hemoglobin VBG pH Oxyhemoglobin Sodium Potassium Chloride Carbon Dioxide BUN Creatinine Glucose POC Glucose 122 H 182 H 114 H Lactic Acid Calcium AST ALT Alkaline Phosphatase CK-MB (CK-2) CK-MB (CK-2) Rel Index Total Protein Albumin TSH Urine WBC (Auto) Salicylates 03/09/17 03/09/17 03/09/17 05:21 05:51 05:51 WBC RBC 3.61 L Hgb 9.5 L Hct 28.3 L MCV 79 L MCH 26 L RDW 17.8 H Plt Count Lymph % (Auto) Arthur % (Auto) Eos % (Auto) Arthur # Seg Neutrophils % Seg Neuts % (Manual) Lymphocytes % (Manual) Seg Neutrophils # Seg Neutrophils # Man Lymphocytes # (Manual) APTT POC ABG pH ABG pH POC ABG pCO2 POC ABG pO2 ABG pO2 ABG HCO3 ABG Base Excess ABG Hemoglobin VBG pH Oxyhemoglobin Sodium 134 L Potassium Chloride 95.5 L Carbon Dioxide BUN 33 H Creatinine 0.5 L Glucose 143 H POC Glucose 153 H Lactic Acid Calcium AST ALT Alkaline Phosphatase CK-MB (CK-2) CK-MB (CK-2) Rel Index Total Protein Albumin TSH Urine WBC (Auto) Salicylates 03/09/17 03/09/17 03/09/17 12:10 18:13 21:00 WBC RBC Hgb Hct MCV MCH RDW Plt Count Lymph % (Auto) Arthur % (Auto) Eos % (Auto) Arthur # Seg Neutrophils % Seg Neuts % (Manual) Lymphocytes % (Manual) Seg Neutrophils # Seg Neutrophils # Man Lymphocytes # (Manual) APTT POC ABG pH ABG pH POC ABG pCO2 POC ABG pO2 ABG pO2 ABG HCO3 ABG Base Excess ABG Hemoglobin VBG pH Oxyhemoglobin Sodium Potassium Chloride Carbon Dioxide BUN Creatinine Glucose POC Glucose 203 H 221 H 198 H Lactic Acid Calcium AST ALT Alkaline Phosphatase CK-MB (CK-2) CK-MB (CK-2) Rel Index Total Protein Albumin TSH Urine WBC (Auto) Salicylates 03/09/17 03/10/17 03/10/17 23:58 05:09 05:09 WBC RBC Hgb 10.3 L Hct 30.5 L MCV 78 L MCH 26 L RDW 17.9 H Plt Count Lymph % (Auto) Arthur % (Auto) 10.0 H Eos % (Auto) 6.0 H Arthur # Seg Neutrophils % Seg Neuts % (Manual) Lymphocytes % (Manual) Seg Neutrophils # Seg Neutrophils # Man Lymphocytes # (Manual) APTT POC ABG pH ABG pH POC ABG pCO2 POC ABG pO2 ABG pO2 ABG HCO3 ABG Base Excess ABG Hemoglobin VBG pH Oxyhemoglobin Sodium 132 L Potassium Chloride 92.2 L Carbon Dioxide BUN 33 H Creatinine 0.5 L Glucose 50 L POC Glucose 167 H Lactic Acid Calcium AST ALT Alkaline Phosphatase CK-MB (CK-2) CK-MB (CK-2) Rel Index Total Protein Albumin TSH Urine WBC (Auto) Salicylates 03/10/17 03/10/17 03/10/17 05:33 05:34 11:48 WBC RBC Hgb Hct MCV MCH RDW Plt Count Lymph % (Auto) Arthur % (Auto) Eos % (Auto) Arthur # Seg Neutrophils % Seg Neuts % (Manual) Lymphocytes % (Manual) Seg Neutrophils # Seg Neutrophils # Man Lymphocytes # (Manual) APTT POC ABG pH ABG pH POC ABG pCO2 POC ABG pO2 ABG pO2 ABG HCO3 ABG Base Excess ABG Hemoglobin VBG pH Oxyhemoglobin Sodium Potassium Chloride Carbon Dioxide BUN Creatinine Glucose POC Glucose 52 L 53 L 148 H Lactic Acid Calcium AST ALT Alkaline Phosphatase CK-MB (CK-2) CK-MB (CK-2) Rel Index Total Protein Albumin TSH Urine WBC (Auto) Salicylates 03/10/17 03/10/17 03/11/17 17:53 23:47 05:18 WBC RBC Hgb Hct MCV MCH RDW Plt Count Lymph % (Auto) Arthur % (Auto) Eos % (Auto) Arthur # Seg Neutrophils % Seg Neuts % (Manual) Lymphocytes % (Manual) Seg Neutrophils # Seg Neutrophils # Man Lymphocytes # (Manual) APTT POC ABG pH ABG pH POC ABG pCO2 POC ABG pO2 ABG pO2 ABG HCO3 ABG Base Excess ABG Hemoglobin VBG pH Oxyhemoglobin Sodium Potassium Chloride Carbon Dioxide BUN Creatinine Glucose POC Glucose 189 H 398 H 126 H Lactic Acid Calcium AST ALT Alkaline Phosphatase CK-MB (CK-2) CK-MB (CK-2) Rel Index Total Protein Albumin TSH Urine WBC (Auto) Salicylates 03/11/17 03/11/17 03/11/17 11:53 17:30 23:10 WBC RBC Hgb Hct MCV MCH RDW Plt Count Lymph % (Auto) Arthur % (Auto) Eos % (Auto) Arthur # Seg Neutrophils % Seg Neuts % (Manual) Lymphocytes % (Manual) Seg Neutrophils # Seg Neutrophils # Man Lymphocytes # (Manual) APTT POC ABG pH ABG pH POC ABG pCO2 POC ABG pO2 ABG pO2 ABG HCO3 ABG Base Excess ABG Hemoglobin VBG pH Oxyhemoglobin Sodium Potassium Chloride Carbon Dioxide BUN Creatinine Glucose POC Glucose 198 H 142 H 244 H Lactic Acid Calcium AST ALT Alkaline Phosphatase CK-MB (CK-2) CK-MB (CK-2) Rel Index Total Protein Albumin TSH Urine WBC (Auto) Salicylates 03/12/17 03/12/17 03/12/17 04:36 11:49 17:23 WBC RBC Hgb Hct MCV MCH RDW Plt Count Lymph % (Auto) Arthur % (Auto) Eos % (Auto) Arthur # Seg Neutrophils % Seg Neuts % (Manual) Lymphocytes % (Manual) Seg Neutrophils # Seg Neutrophils # Man Lymphocytes # (Manual) APTT POC ABG pH ABG pH POC ABG pCO2 POC ABG pO2 ABG pO2 ABG HCO3 ABG Base Excess ABG Hemoglobin VBG pH Oxyhemoglobin Sodium Potassium Chloride Carbon Dioxide BUN Creatinine Glucose POC Glucose 205 H 197 H 209 H Lactic Acid Calcium AST ALT Alkaline Phosphatase CK-MB (CK-2) CK-MB (CK-2) Rel Index Total Protein Albumin TSH Urine WBC (Auto) Salicylates 03/12/17 03/13/17 03/13/17 23:51 05:32 11:43 WBC RBC Hgb Hct MCV MCH RDW Plt Count Lymph % (Auto) Arthur % (Auto) Eos % (Auto) Arthur # Seg Neutrophils % Seg Neuts % (Manual) Lymphocytes % (Manual) Seg Neutrophils # Seg Neutrophils # Man Lymphocytes # (Manual) APTT POC ABG pH ABG pH POC ABG pCO2 POC ABG pO2 ABG pO2 ABG HCO3 ABG Base Excess ABG Hemoglobin VBG pH Oxyhemoglobin Sodium Potassium Chloride Carbon Dioxide BUN Creatinine Glucose POC Glucose 210 H 154 H 164 H Lactic Acid Calcium AST ALT Alkaline Phosphatase CK-MB (CK-2) CK-MB (CK-2) Rel Index Total Protein Albumin TSH Urine WBC (Auto) Salicylates 03/13/17 03/13/17 03/14/17 17:11 23:26 05:42 WBC RBC Hgb Hct MCV MCH RDW Plt Count Lymph % (Auto) Arthur % (Auto) Eos % (Auto) Arthur # Seg Neutrophils % Seg Neuts % (Manual) Lymphocytes % (Manual) Seg Neutrophils # Seg Neutrophils # Man Lymphocytes # (Manual) APTT POC ABG pH ABG pH POC ABG pCO2 POC ABG pO2 ABG pO2 ABG HCO3 ABG Base Excess ABG Hemoglobin VBG pH Oxyhemoglobin Sodium Potassium Chloride Carbon Dioxide BUN Creatinine Glucose POC Glucose 195 H 240 H 230 H Lactic Acid Calcium AST ALT Alkaline Phosphatase CK-MB (CK-2) CK-MB (CK-2) Rel Index Total Protein Albumin TSH Urine WBC (Auto) Salicylates 03/14/17 03/14/17 03/14/17 14:04 17:34 23:42 WBC RBC Hgb Hct MCV MCH RDW Plt Count Lymph % (Auto) Arthur % (Auto) Eos % (Auto) Arthur # Seg Neutrophils % Seg Neuts % (Manual) Lymphocytes % (Manual) Seg Neutrophils # Seg Neutrophils # Man Lymphocytes # (Manual) APTT POC ABG pH ABG pH POC ABG pCO2 POC ABG pO2 ABG pO2 ABG HCO3 ABG Base Excess ABG Hemoglobin VBG pH Oxyhemoglobin Sodium Potassium Chloride Carbon Dioxide BUN Creatinine Glucose POC Glucose 227 H 186 H 225 H Lactic Acid Calcium AST ALT Alkaline Phosphatase CK-MB (CK-2) CK-MB (CK-2) Rel Index Total Protein Albumin TSH Urine WBC (Auto) Salicylates 03/15/17 03/15/17 03/15/17 05:21 17:13 21:37 WBC RBC Hgb Hct MCV MCH RDW Plt Count Lymph % (Auto) Arthur % (Auto) Eos % (Auto) Arthur # Seg Neutrophils % Seg Neuts % (Manual) Lymphocytes % (Manual) Seg Neutrophils # Seg Neutrophils # Man Lymphocytes # (Manual) APTT POC ABG pH ABG pH POC ABG pCO2 POC ABG pO2 ABG pO2 ABG HCO3 ABG Base Excess ABG Hemoglobin VBG pH Oxyhemoglobin Sodium Potassium Chloride Carbon Dioxide BUN Creatinine Glucose POC Glucose 244 H 203 H 216 H Lactic Acid Calcium AST ALT Alkaline Phosphatase CK-MB (CK-2) CK-MB (CK-2) Rel Index Total Protein Albumin TSH Urine WBC (Auto) Salicylates 03/16/17 03/16/17 03/16/17 05:52 18:07 21:54 WBC RBC Hgb Hct MCV MCH RDW Plt Count Lymph % (Auto) Arthur % (Auto) Eos % (Auto) Arthur # Seg Neutrophils % Seg Neuts % (Manual) Lymphocytes % (Manual) Seg Neutrophils # Seg Neutrophils # Man Lymphocytes # (Manual) APTT POC ABG pH ABG pH POC ABG pCO2 POC ABG pO2 ABG pO2 ABG HCO3 ABG Base Excess ABG Hemoglobin VBG pH Oxyhemoglobin Sodium Potassium Chloride Carbon Dioxide BUN Creatinine Glucose POC Glucose 248 H 254 H 244 H Lactic Acid Calcium AST ALT Alkaline Phosphatase CK-MB (CK-2) CK-MB (CK-2) Rel Index Total Protein Albumin TSH Urine WBC (Auto) Salicylates 03/17/17 03/17/17 03/17/17 07:07 07:42 07:43 WBC RBC Hgb 9.7 L Hct 29.1 L MCV 78 L MCH 26 L RDW 17.4 H Plt Count Lymph % (Auto) Arthur % (Auto) Eos % (Auto) Arthur # Seg Neutrophils % Seg Neuts % (Manual) Lymphocytes % (Manual) Seg Neutrophils # Seg Neutrophils # Man Lymphocytes # (Manual) APTT POC ABG pH ABG pH POC ABG pCO2 POC ABG pO2 ABG pO2 ABG HCO3 ABG Base Excess ABG Hemoglobin VBG pH Oxyhemoglobin Sodium Potassium Chloride 96.6 L Carbon Dioxide BUN 30 H Creatinine 0.5 L Glucose 251 H POC Glucose 222 H Lactic Acid Calcium AST ALT Alkaline Phosphatase CK-MB (CK-2) CK-MB (CK-2) Rel Index Total Protein Albumin TSH Urine WBC (Auto) Salicylates 03/17/17 03/17/1703/18/17 14:08 21:20 14:24 WBC RBC Hgb Hct MCV MCH RDW Plt Count Lymph % (Auto) Arthur % (Auto) Eos % (Auto) Arthur # Seg Neutrophils % Seg Neuts % (Manual) Lymphocytes % (Manual) Seg Neutrophils # Seg Neutrophils # Man Lymphocytes # (Manual) APTT POC ABG pH ABG pH POC ABG pCO2 POC ABG pO2 ABG pO2 ABG HCO3 ABG Base Excess ABG Hemoglobin VBG pH Oxyhemoglobin Sodium Potassium Chloride Carbon Dioxide BUN Creatinine Glucose POC Glucose 281 H 239 H 195 H Lactic Acid Calcium AST ALT Alkaline Phosphatase CK-MB (CK-2) CK-MB (CK-2) Rel Index Total Protein Albumin TSH Urine WBC (Auto) Salicylates 03/18/17 03/19/17 03/19/17 21:37 04:57 14:23 WBC RBC Hgb Hct MCV MCH RDW Plt Count Lymph % (Auto) Arthur % (Auto) Eos % (Auto) Arthur # Seg Neutrophils % Seg Neuts % (Manual) Lymphocytes % (Manual) Seg Neutrophils # Seg Neutrophils # Man Lymphocytes # (Manual) APTT POC ABG pH ABG pH POC ABG pCO2 POC ABG pO2 ABG pO2 ABG HCO3 ABG Base Excess ABG Hemoglobin VBG pH Oxyhemoglobin Sodium Potassium Chloride Carbon Dioxide BUN Creatinine Glucose POC Glucose 227 H 205 H 277 H Lactic Acid Calcium AST ALT Alkaline Phosphatase CK-MB (CK-2) CK-MB (CK-2) Rel Index Total Protein Albumin TSH Urine WBC (Auto) Salicylates 03/19/17 03/19/17 03/20/17 20:31 21:47 04:55 WBC RBC Hgb Hct MCV MCH RDW Plt Count Lymph % (Auto) Arthur % (Auto) Eos % (Auto) Arthur # Seg Neutrophils % Seg Neuts % (Manual) Lymphocytes % (Manual) Seg Neutrophils # Seg Neutrophils # Man Lymphocytes # (Manual) APTT POC ABG pH ABG pH POC ABG pCO2 POC ABG pO2 ABG pO2 ABG HCO3 ABG Base Excess ABG Hemoglobin VBG pH Oxyhemoglobin Sodium Potassium Chloride Carbon Dioxide BUN Creatinine Glucose POC Glucose 256 H 270 H 202 H Lactic Acid Calcium AST ALT Alkaline Phosphatase CK-MB (CK-2) CK-MB (CK-2) Rel Index Total Protein Albumin TSH Urine WBC (Auto) Salicylates 03/20/17 03/20/17 03/21/17 14:09 21:40 05:09 WBC RBC Hgb Hct MCV MCH RDW Plt Count Lymph % (Auto) Arthur % (Auto) Eos % (Auto) Arthur # Seg Neutrophils % Seg Neuts % (Manual) Lymphocytes % (Manual) Seg Neutrophils # Seg Neutrophils # Man Lymphocytes # (Manual) APTT POC ABG pH ABG pH POC ABG pCO2 POC ABG pO2 ABG pO2 ABG HCO3 ABG Base Excess ABG Hemoglobin VBG pH Oxyhemoglobin Sodium Potassium Chloride Carbon Dioxide BUN Creatinine Glucose POC Glucose 200 H 214 H 233 H Lactic Acid Calcium AST ALT Alkaline Phosphatase CK-MB (CK-2) CK-MB (CK-2) Rel Index Total Protein Albumin TSH Urine WBC (Auto) Salicylates 03/21/17 03/21/17 03/22/17 14:06 21:26 05:43 WBC RBC Hgb Hct MCV MCH RDW Plt Count Lymph % (Auto) Arthur % (Auto) Eos % (Auto) Arthur # Seg Neutrophils % Seg Neuts % (Manual) Lymphocytes % (Manual) Seg Neutrophils # Seg Neutrophils # Man Lymphocytes # (Manual) APTT POC ABG pH ABG pH POC ABG pCO2 POC ABG pO2 ABG pO2 ABG HCO3 ABG Base Excess ABG Hemoglobin VBG pH Oxyhemoglobin Sodium Potassium Chloride Carbon Dioxide BUN Creatinine Glucose POC Glucose 250 H 155 H 251 H Lactic Acid Calcium AST ALT Alkaline Phosphatase CK-MB (CK-2) CK-MB (CK-2) Rel Index Total Protein Albumin TSH Urine WBC (Auto) Salicylates 03/22/17 03/22/17 03/23/17 13:46 21:16 00:23 WBC RBC Hgb Hct MCV MCH RDW Plt Count Lymph % (Auto) Arthur % (Auto) Eos % (Auto) Arthur # Seg Neutrophils % Seg Neuts % (Manual) Lymphocytes % (Manual) Seg Neutrophils # Seg Neutrophils # Man Lymphocytes # (Manual) APTT POC ABG pH ABG pH POC ABG pCO2 POC ABG pO2 ABG pO2 ABG HCO3 ABG Base Excess ABG Hemoglobin VBG pH Oxyhemoglobin Sodium Potassium Chloride Carbon Dioxide BUN Creatinine Glucose POC Glucose 269 H 197 H 126 H Lactic Acid Calcium AST ALT Alkaline Phosphatase CK-MB (CK-2) CK-MB (CK-2) Rel Index Total Protein Albumin TSH Urine WBC (Auto) Salicylates 03/23/17 03/23/17 03/23/17 05:39 14:06 21:39 WBC RBC Hgb Hct MCV MCH RDW Plt Count Lymph % (Auto) Arthur % (Auto) Eos % (Auto) Arthur # Seg Neutrophils % Seg Neuts % (Manual) Lymphocytes % (Manual) Seg Neutrophils # Seg Neutrophils # Man Lymphocytes # (Manual) APTT POC ABG pH ABG pH POC ABG pCO2 POC ABG pO2 ABG pO2 ABG HCO3 ABG Base Excess ABG Hemoglobin VBG pH Oxyhemoglobin Sodium Potassium Chloride Carbon Dioxide BUN Creatinine Glucose POC Glucose 234 H 241 H 248 H Lactic Acid Calcium AST ALT Alkaline Phosphatase CK-MB (CK-2) CK-MB (CK-2) Rel Index Total Protein Albumin TSH Urine WBC (Auto) Salicylates 03/24/17 03/24/17 03/25/17 05:06 21:46 05:38 WBC RBC Hgb Hct MCV MCH RDW Plt Count Lymph % (Auto) Arthur % (Auto) Eos % (Auto) Arthur # Seg Neutrophils % Seg Neuts % (Manual) Lymphocytes % (Manual) Seg Neutrophils # Seg Neutrophils # Man Lymphocytes # (Manual) APTT POC ABG pH ABG pH POC ABG pCO2 POC ABG pO2 ABG pO2 ABG HCO3 ABG Base Excess ABG Hemoglobin VBG pH Oxyhemoglobin Sodium Potassium Chloride Carbon Dioxide BUN Creatinine Glucose POC Glucose 232 H 276 H 242 H Lactic Acid Calcium AST ALT Alkaline Phosphatase CK-MB (CK-2) CK-MB (CK-2) Rel Index Total Protein Albumin TSH Urine WBC (Auto) Salicylates 03/25/17 03/25/17 03/26/17 14:30 23:14 13:53 WBC RBC Hgb Hct MCV MCH RDW Plt Count Lymph % (Auto) Arthur % (Auto) Eos % (Auto) Arthur # Seg Neutrophils % Seg Neuts % (Manual) Lymphocytes % (Manual) Seg Neutrophils # Seg Neutrophils # Man Lymphocytes # (Manual) APTT POC ABG pH ABG pH POC ABG pCO2 POC ABG pO2 ABG pO2 ABG HCO3 ABG Base Excess ABG Hemoglobin VBG pH Oxyhemoglobin Sodium Potassium Chloride Carbon Dioxide BUN Creatinine Glucose POC Glucose 246 H 208 H 195 H Lactic Acid Calcium AST ALT Alkaline Phosphatase CK-MB (CK-2) CK-MB (CK-2) Rel Index Total Protein Albumin TSH Urine WBC (Auto) Salicylates 03/26/17 03/27/17 03/27/17 21:58 05:18 14:57 WBC RBC Hgb Hct MCV MCH RDW Plt Count Lymph % (Auto) Arthur % (Auto) Eos % (Auto) Arthur # Seg Neutrophils % Seg Neuts % (Manual) Lymphocytes % (Manual) Seg Neutrophils # Seg Neutrophils # Man Lymphocytes # (Manual) APTT POC ABG pH ABG pH POC ABG pCO2 POC ABG pO2 ABG pO2 ABG HCO3 ABG Base Excess ABG Hemoglobin VBG pH Oxyhemoglobin Sodium Potassium Chloride Carbon Dioxide BUN Creatinine Glucose POC Glucose 241 H 199 H 269 H Lactic Acid Calcium AST ALT Alkaline Phosphatase CK-MB (CK-2) CK-MB (CK-2) Rel Index Total Protein Albumin TSH Urine WBC (Auto) Salicylates 03/27/17 03/28/17 03/28/17 21:33 13:52 21:29 WBC RBC Hgb Hct MCV MCH RDW Plt Count Lymph % (Auto) Arthur % (Auto) Eos % (Auto) Arthur # Seg Neutrophils % Seg Neuts % (Manual) Lymphocytes % (Manual) Seg Neutrophils # Seg Neutrophils # Man Lymphocytes # (Manual) APTT POC ABG pH ABG pH POC ABG pCO2 POC ABG pO2 ABG pO2 ABG HCO3 ABG Base Excess ABG Hemoglobin VBG pH Oxyhemoglobin Sodium Potassium Chloride Carbon Dioxide BUN Creatinine Glucose POC Glucose 214 H 243 H 286 H Lactic Acid Calcium AST ALT Alkaline Phosphatase CK-MB (CK-2) CK-MB (CK-2) Rel Index Total Protein Albumin TSH Urine WBC (Auto) Salicylates 03/29/17 03/29/17 03/29/17 04:32 04:32 13:58 WBC RBC Hgb 10.6 L Hct 32.9 L MCV 78 L MCH 25 L RDW 17.6 H Plt Count Lymph % (Auto) 38.0 H Arthur % (Auto) 9.7 H Eos % (Auto) Arthur # Seg Neutrophils % Seg Neuts % (Manual) Lymphocytes % (Manual) Seg Neutrophils # Seg Neutrophils # Man Lymphocytes # (Manual) APTT POC ABG pH ABG pH POC ABG pCO2 POC ABG pO2 ABG pO2 ABG HCO3 ABG Base Excess ABG Hemoglobin VBG pH Oxyhemoglobin Sodium 132 L Potassium Chloride 94.0 L Carbon Dioxide BUN 28 H Creatinine 0.5 L Glucose 236 H POC Glucose 171 H Lactic Acid Calcium AST ALT 71 H Alkaline Phosphatase 391 H CK-MB (CK-2) CK-MB (CK-2) Rel Index Total Protein 8.3 H Albumin 2.9 L TSH Urine WBC (Auto) Salicylates 03/29/17 03/30/17 03/30/17 20:59 06:07 11:52 WBC RBC Hgb Hct MCV MCH RDW Plt Count Lymph % (Auto) Arthur % (Auto) Eos % (Auto) Arthur # Seg Neutrophils % Seg Neuts % (Manual) Lymphocytes % (Manual) Seg Neutrophils # Seg Neutrophils # Man Lymphocytes # (Manual) APTT POC ABG pH ABG pH POC ABG pCO2 POC ABG pO2 ABG pO2 ABG HCO3 ABG Base Excess ABG Hemoglobin VBG pH Oxyhemoglobin Sodium Potassium Chloride Carbon Dioxide BUN Creatinine Glucose POC Glucose 215 H 259 H 197 H Lactic Acid Calcium AST ALT Alkaline Phosphatase CK-MB (CK-2) CK-MB (CK-2) Rel Index Total Protein Albumin TSH Urine WBC (Auto) Salicylates 03/30/17 03/31/17 03/31/17 21:34 05:42 14:34 WBC RBC Hgb Hct MCV MCH RDW Plt Count Lymph % (Auto) Arthur % (Auto) Eos % (Auto) Arthur # Seg Neutrophils % Seg Neuts % (Manual) Lymphocytes % (Manual) Seg Neutrophils # Seg Neutrophils # Man Lymphocytes # (Manual) APTT POC ABG pH ABG pH POC ABG pCO2 POC ABG pO2 ABG pO2 ABG HCO3 ABG Base Excess ABG Hemoglobin VBG pH Oxyhemoglobin Sodium Potassium Chloride Carbon Dioxide BUN Creatinine Glucose POC Glucose 207 H 184 H 213 H Lactic Acid Calcium AST ALT Alkaline Phosphatase CK-MB (CK-2) CK-MB (CK-2) Rel Index Total Protein Albumin TSH Urine WBC (Auto) Salicylates 03/31/17 04/01/17 04/01/17 21:32 05:53 13:48 WBC RBC Hgb Hct MCV MCH RDW Plt Count Lymph % (Auto) Arthur % (Auto) Eos % (Auto) Arthur # Seg Neutrophils % Seg Neuts % (Manual) Lymphocytes % (Manual) Seg Neutrophils # Seg Neutrophils # Man Lymphocytes # (Manual) APTT POC ABG pH ABG pH POC ABG pCO2 POC ABG pO2 ABG pO2 ABG HCO3 ABG Base Excess ABG Hemoglobin VBG pH Oxyhemoglobin Sodium Potassium Chloride Carbon Dioxide BUN Creatinine Glucose POC Glucose 249 H 225 H 256 H Lactic Acid Calcium AST ALT Alkaline Phosphatase CK-MB (CK-2) CK-MB (CK-2) Rel Index Total Protein Albumin TSH Urine WBC (Auto) Salicylates 04/01/17 04/02/17 04/02/17 21:34 05:32 14:05 WBC RBC Hgb Hct MCV MCH RDW Plt Count Lymph % (Auto) Arthur % (Auto) Eos % (Auto) Arthur # Seg Neutrophils % Seg Neuts % (Manual) Lymphocytes % (Manual) Seg Neutrophils # Seg Neutrophils # Man Lymphocytes # (Manual) APTT POC ABG pH ABG pH POC ABG pCO2 POC ABG pO2 ABG pO2 ABG HCO3 ABG Base Excess ABG Hemoglobin VBG pH Oxyhemoglobin Sodium Potassium Chloride Carbon Dioxide BUN Creatinine Glucose POC Glucose 292 H 220 H 187 H Lactic Acid Calcium AST ALT Alkaline Phosphatase CK-MB (CK-2) CK-MB (CK-2) Rel Index Total Protein Albumin TSH Urine WBC (Auto) Salicylates 04/02/17 04/03/17 04/03/17 21:57 04:49 14:12 WBC RBC Hgb Hct MCV MCH RDW Plt Count Lymph % (Auto) Arthur % (Auto) Eos % (Auto) Arthur # Seg Neutrophils % Seg Neuts % (Manual) Lymphocytes % (Manual) Seg Neutrophils # Seg Neutrophils # Man Lymphocytes # (Manual) APTT POC ABG pH ABG pH POC ABG pCO2 POC ABG pO2 ABG pO2 ABG HCO3 ABG Base Excess ABG Hemoglobin VBG pH Oxyhemoglobin Sodium Potassium Chloride Carbon Dioxide BUN Creatinine Glucose POC Glucose 285 H 256 H 197 H Lactic Acid Calcium AST ALT Alkaline Phosphatase CK-MB (CK-2) CK-MB (CK-2) Rel Index Total Protein Albumin TSH Urine WBC (Auto) Salicylates 04/03/17 04/04/17 04/04/17 21:11 05:20 13:18 WBC RBC Hgb Hct MCV MCH RDW Plt Count Lymph % (Auto) Arthur % (Auto) Eos % (Auto) Arthur # Seg Neutrophils % Seg Neuts % (Manual) Lymphocytes % (Manual) Seg Neutrophils # Seg Neutrophils # Man Lymphocytes # (Manual) APTT POC ABG pH ABG pH POC ABG pCO2 POC ABG pO2 ABG pO2 ABG HCO3 ABG Base Excess ABG Hemoglobin VBG pH Oxyhemoglobin Sodium Potassium Chloride Carbon Dioxide BUN Creatinine Glucose POC Glucose 166 H 228 H 252 H Lactic Acid Calcium AST ALT Alkaline Phosphatase CK-MB (CK-2) CK-MB (CK-2) Rel Index Total Protein Albumin TSH Urine WBC (Auto) Salicylates 04/04/17 04/05/17 04/05/17 21:51 06:14 09:54 WBC RBC Hgb Hct MCV MCH RDW Plt Count Lymph % (Auto) Arthur % (Auto) Eos % (Auto) Arthur # Seg Neutrophils % Seg Neuts % (Manual) Lymphocytes % (Manual) Seg Neutrophils # Seg Neutrophils # Man Lymphocytes # (Manual) APTT POC ABG pH ABG pH POC ABG pCO2 POC ABG pO2 ABG pO2 ABG HCO3 ABG Base Excess ABG Hemoglobin VBG pH Oxyhemoglobin Sodium Potassium Chloride Carbon Dioxide BUN Creatinine Glucose POC Glucose 252 H 152 H 181 H Lactic Acid Calcium AST ALT Alkaline Phosphatase CK-MB (CK-2) CK-MB (CK-2) Rel Index Total Protein Albumin TSH Urine WBC (Auto) Salicylates 04/05/17 04/05/17 04/05/17 14:49 17:34 21:38 WBC RBC Hgb Hct MCV MCH RDW Plt Count Lymph % (Auto) Arthur % (Auto) Eos % (Auto) Arthur # Seg Neutrophils % Seg Neuts % (Manual) Lymphocytes % (Manual) Seg Neutrophils # Seg Neutrophils # Man Lymphocytes # (Manual) APTT POC ABG pH ABG pH POC ABG pCO2 POC ABG pO2 ABG pO2 ABG HCO3 ABG Base Excess ABG Hemoglobin VBG pH Oxyhemoglobin Sodium Potassium Chloride Carbon Dioxide BUN Creatinine Glucose POC Glucose 219 H 268 H 278 H Lactic Acid Calcium AST ALT Alkaline Phosphatase CK-MB (CK-2) CK-MB (CK-2) Rel Index Total Protein Albumin TSH Urine WBC (Auto) Salicylates 04/06/17 04/06/17 04/07/17 15:04 22:14 05:09 WBC RBC Hgb Hct MCV MCH RDW Plt Count Lymph % (Auto) Arthur % (Auto) Eos % (Auto) Arthur # Seg Neutrophils % Seg Neuts % (Manual) Lymphocytes % (Manual) Seg Neutrophils # Seg Neutrophils # Man Lymphocytes # (Manual) APTT POC ABG pH ABG pH POC ABG pCO2 POC ABG pO2 ABG pO2 ABG HCO3 ABG Base Excess ABG Hemoglobin VBG pH Oxyhemoglobin Sodium Potassium Chloride Carbon Dioxide BUN Creatinine Glucose POC Glucose 285 H 106 H 334 H Lactic Acid Calcium AST ALT Alkaline Phosphatase CK-MB (CK-2) CK-MB (CK-2) Rel Index Total Protein Albumin TSH Urine WBC (Auto) Salicylates 04/07/17 04/07/17 04/08/17 14:45 21:48 05:28 WBC RBC Hgb Hct MCV MCH RDW Plt Count Lymph % (Auto) Arthur % (Auto) Eos % (Auto) Arthur # Seg Neutrophils % Seg Neuts % (Manual) Lymphocytes % (Manual) Seg Neutrophils # Seg Neutrophils # Man Lymphocytes # (Manual) APTT POC ABG pH ABG pH POC ABG pCO2 POC ABG pO2 ABG pO2 ABG HCO3 ABG Base Excess ABG Hemoglobin VBG pH Oxyhemoglobin Sodium Potassium Chloride Carbon Dioxide BUN Creatinine Glucose POC Glucose 173 H 304 H 314 H Lactic Acid Calcium AST ALT Alkaline Phosphatase CK-MB (CK-2) CK-MB (CK-2) Rel Index Total Protein Albumin TSH Urine WBC (Auto) Salicylates 04/08/17 04/08/17 04/08/17 15:57 16:17 22:21 WBC RBC Hgb Hct MCV MCH RDW Plt Count Lymph % (Auto) Arthur % (Auto) Eos % (Auto) Arthur # Seg Neutrophils % Seg Neuts % (Manual) Lymphocytes % (Manual) Seg Neutrophils # Seg Neutrophils # Man Lymphocytes # (Manual) APTT POC ABG pH ABG pH POC ABG pCO2 POC ABG pO2 ABG pO2 ABG HCO3 ABG Base Excess ABG Hemoglobin VBG pH Oxyhemoglobin Sodium Potassium Chloride Carbon Dioxide BUN Creatinine Glucose POC Glucose 356 H 337 H 323 H Lactic Acid Calcium AST ALT Alkaline Phosphatase CK-MB (CK-2) CK-MB (CK-2) Rel Index Total Protein Albumin TSH Urine WBC (Auto) Salicylates 04/09/17 04/09/17 04/09/17 06:19 15:30 21:52 WBC RBC Hgb Hct MCV MCH RDW Plt Count Lymph % (Auto) Arthur % (Auto) Eos % (Auto) Arthur # Seg Neutrophils % Seg Neuts % (Manual) Lymphocytes % (Manual) Seg Neutrophils # Seg Neutrophils # Man Lymphocytes # (Manual) APTT POC ABG pH ABG pH POC ABG pCO2 POC ABG pO2 ABG pO2 ABG HCO3 ABG Base Excess ABG Hemoglobin VBG pH Oxyhemoglobin Sodium Potassium Chloride Carbon Dioxide BUN Creatinine Glucose POC Glucose 340 H 332 H 341 H Lactic Acid Calcium AST ALT Alkaline Phosphatase CK-MB (CK-2) CK-MB (CK-2) Rel Index Total Protein Albumin TSH Urine WBC (Auto) Salicylates 04/10/17 04/10/17 04/10/17 01:53 05:33 17:40 WBC RBC Hgb Hct MCV MCH RDW Plt Count Lymph % (Auto) Arthur % (Auto) Eos % (Auto) Arthur # Seg Neutrophils % Seg Neuts % (Manual) Lymphocytes % (Manual) Seg Neutrophils # Seg Neutrophils # Man Lymphocytes # (Manual) APTT POC ABG pH ABG pH POC ABG pCO2 POC ABG pO2 ABG pO2 ABG HCO3 ABG Base Excess ABG Hemoglobin VBG pH Oxyhemoglobin Sodium Potassium Chloride Carbon Dioxide BUN Creatinine Glucose POC Glucose 261 H 277 H 304 H Lactic Acid Calcium AST ALT Alkaline Phosphatase CK-MB (CK-2) CK-MB (CK-2) Rel Index Total Protein Albumin TSH Urine WBC (Auto) Salicylates 04/10/17 04/11/17 04/11/17 21:29 05:28 14:02 WBC RBC Hgb Hct MCV MCH RDW Plt Count Lymph % (Auto) Arthur % (Auto) Eos % (Auto) Arthur # Seg Neutrophils % Seg Neuts % (Manual) Lymphocytes % (Manual) Seg Neutrophils # Seg Neutrophils # Man Lymphocytes # (Manual) APTT POC ABG pH ABG pH POC ABG pCO2 POC ABG pO2 ABG pO2 ABG HCO3 ABG Base Excess ABG Hemoglobin VBG pH Oxyhemoglobin Sodium Potassium Chloride Carbon Dioxide BUN Creatinine Glucose POC Glucose 361 H 204 H 236 H Lactic Acid Calcium AST ALT Alkaline Phosphatase CK-MB (CK-2) CK-MB (CK-2) Rel Index Total Protein Albumin TSH Urine WBC (Auto) Salicylates 04/11/17 04/12/17 04/12/17 21:43 05:00 11:53 WBC RBC Hgb Hct MCV MCH RDW Plt Count Lymph % (Auto) Arthur % (Auto) Eos % (Auto) Arthur # Seg Neutrophils % Seg Neuts % (Manual) Lymphocytes % (Manual) Seg Neutrophils # Seg Neutrophils # Man Lymphocytes # (Manual) APTT POC ABG pH ABG pH POC ABG pCO2 POC ABG pO2 ABG pO2 ABG HCO3 ABG Base Excess ABG Hemoglobin VBG pH Oxyhemoglobin Sodium Potassium Chloride Carbon Dioxide BUN Creatinine Glucose POC Glucose 287 H 294 H 265 H Lactic Acid Calcium AST ALT Alkaline Phosphatase CK-MB (CK-2) CK-MB (CK-2) Rel Index Total Protein Albumin TSH Urine WBC (Auto) Salicylates 04/12/17 04/12/17 04/13/17 21:21 23:44 06:05 WBC RBC Hgb Hct MCV MCH RDW Plt Count Lymph % (Auto) Arthur % (Auto) Eos % (Auto) Arthur # Seg Neutrophils % Seg Neuts % (Manual) Lymphocytes % (Manual) Seg Neutrophils # Seg Neutrophils # Man Lymphocytes # (Manual) APTT POC ABG pH ABG pH POC ABG pCO2 POC ABG pO2 ABG pO2 ABG HCO3 ABG Base Excess ABG Hemoglobin VBG pH Oxyhemoglobin Sodium Potassium Chloride Carbon Dioxide BUN Creatinine Glucose POC Glucose 289 H 348 H 326 H Lactic Acid Calcium AST ALT Alkaline Phosphatase CK-MB (CK-2) CK-MB (CK-2) Rel Index Total Protein Albumin TSH Urine WBC (Auto) Salicylates 04/13/17 04/13/17 04/14/17 13:54 21:15 05:49 WBC RBC Hgb Hct MCV MCH RDW Plt Count Lymph % (Auto) Arthur % (Auto) Eos % (Auto) Arthur # Seg Neutrophils % Seg Neuts % (Manual) Lymphocytes % (Manual) Seg Neutrophils # Seg Neutrophils # Man Lymphocytes # (Manual) APTT POC ABG pH ABG pH POC ABG pCO2 POC ABG pO2 ABG pO2 ABG HCO3 ABG Base Excess ABG Hemoglobin VBG pH Oxyhemoglobin Sodium Potassium Chloride Carbon Dioxide BUN Creatinine Glucose POC Glucose 326 H 263 H 319 H Lactic Acid Calcium AST ALT Alkaline Phosphatase CK-MB (CK-2) CK-MB (CK-2) Rel Index Total Protein Albumin TSH Urine WBC (Auto) Salicylates 04/14/17 04/14/17 04/15/17 13:26 23:13 14:24 WBC RBC Hgb Hct MCV MCH RDW Plt Count Lymph % (Auto) Arthur % (Auto) Eos % (Auto) Arthur # Seg Neutrophils % Seg Neuts % (Manual) Lymphocytes % (Manual) Seg Neutrophils # Seg Neutrophils # Man Lymphocytes # (Manual) APTT POC ABG pH ABG pH POC ABG pCO2 POC ABG pO2 ABG pO2 ABG HCO3 ABG Base Excess ABG Hemoglobin VBG pH Oxyhemoglobin Sodium Potassium Chloride Carbon Dioxide BUN Creatinine Glucose POC Glucose 207 H 365 H 308 H Lactic Acid Calcium AST ALT Alkaline Phosphatase CK-MB (CK-2) CK-MB (CK-2) Rel Index Total Protein Albumin TSH Urine WBC (Auto) Salicylates 04/15/17 04/15/17 04/15/17 21:00 22:18 23:12 WBC RBC Hgb Hct MCV MCH RDW Plt Count Lymph % (Auto) Arthur % (Auto) Eos % (Auto) Arthur # Seg Neutrophils % Seg Neuts % (Manual) Lymphocytes % (Manual) Seg Neutrophils # Seg Neutrophils # Man Lymphocytes # (Manual) APTT POC ABG pH ABG pH POC ABG pCO2 POC ABG pO2 ABG pO2 ABG HCO3 ABG Base Excess ABG Hemoglobin VBG pH Oxyhemoglobin Sodium Potassium Chloride Carbon Dioxide BUN Creatinine Glucose POC Glucose 407 H 287 H 325 H Lactic Acid Calcium AST ALT Alkaline Phosphatase CK-MB (CK-2) CK-MB (CK-2) Rel Index Total Protein Albumin TSH Urine WBC (Auto) Salicylates 04/16/17 04/16/17 04/16/17 05:30 10:07 14:26 WBC RBC Hgb Hct MCV MCH RDW Plt Count Lymph % (Auto) Arthur % (Auto) Eos % (Auto) Arthur # Seg Neutrophils % Seg Neuts % (Manual) Lymphocytes % (Manual) Seg Neutrophils # Seg Neutrophils # Man Lymphocytes # (Manual) APTT POC ABG pH ABG pH POC ABG pCO2 POC ABG pO2 ABG pO2 ABG HCO3 ABG Base Excess ABG Hemoglobin VBG pH Oxyhemoglobin Sodium Potassium Chloride Carbon Dioxide BUN Creatinine Glucose POC Glucose 304 H 217 H 344 H Lactic Acid Calcium AST ALT Alkaline Phosphatase CK-MB (CK-2) CK-MB (CK-2) Rel Index Total Protein Albumin TSH Urine WBC (Auto) Salicylates 04/16/17 04/17/17 04/17/17 21:25 05:12 14:19 WBC RBC Hgb Hct MCV MCH RDW Plt Count Lymph % (Auto) Arthur % (Auto) Eos % (Auto) Arthur # Seg Neutrophils % Seg Neuts % (Manual) Lymphocytes % (Manual) Seg Neutrophils # Seg Neutrophils # Man Lymphocytes # (Manual) APTT POC ABG pH ABG pH POC ABG pCO2 POC ABG pO2 ABG pO2 ABG HCO3 ABG Base Excess ABG Hemoglobin VBG pH Oxyhemoglobin Sodium Potassium Chloride Carbon Dioxide BUN Creatinine Glucose POC Glucose 305 H 233 H 324 H Lactic Acid Calcium AST ALT Alkaline Phosphatase CK-MB (CK-2) CK-MB (CK-2) Rel Index Total Protein Albumin TSH Urine WBC (Auto) Salicylates 04/17/17 04/18/17 04/18/17 21:42 06:21 14:08 WBC RBC Hgb Hct MCV MCH RDW Plt Count Lymph % (Auto) Arthur % (Auto) Eos % (Auto) Arthur # Seg Neutrophils % Seg Neuts % (Manual) Lymphocytes % (Manual) Seg Neutrophils # Seg Neutrophils # Man Lymphocytes # (Manual) APTT POC ABG pH ABG pH POC ABG pCO2 POC ABG pO2 ABG pO2 ABG HCO3 ABG Base Excess ABG Hemoglobin VBG pH Oxyhemoglobin Sodium Potassium Chloride Carbon Dioxide BUN Creatinine Glucose POC Glucose 270 H 308 H 290 H Lactic Acid Calcium AST ALT Alkaline Phosphatase CK-MB (CK-2) CK-MB (CK-2) Rel Index Total Protein Albumin TSH Urine WBC (Auto) Salicylates 04/18/17 04/19/17 04/19/17 21:50 05:20 13:59 WBC RBC Hgb Hct MCV MCH RDW Plt Count Lymph % (Auto) Arthur % (Auto) Eos % (Auto) Arthur # Seg Neutrophils % Seg Neuts % (Manual) Lymphocytes % (Manual) Seg Neutrophils # Seg Neutrophils # Man Lymphocytes # (Manual) APTT POC ABG pH ABG pH POC ABG pCO2 POC ABG pO2 ABG pO2 ABG HCO3 ABG Base Excess ABG Hemoglobin VBG pH Oxyhemoglobin Sodium Potassium Chloride Carbon Dioxide BUN Creatinine Glucose POC Glucose 167 H 372 H 321 H Lactic Acid Calcium AST ALT Alkaline Phosphatase CK-MB (CK-2) CK-MB (CK-2) Rel Index Total Protein Albumin TSH Urine WBC (Auto) Salicylates 04/19/17 04/20/17 04/20/17 21:16 14:18 21:34 WBC RBC Hgb Hct MCV MCH RDW Plt Count Lymph % (Auto) Arthur % (Auto) Eos % (Auto) Arthur # Seg Neutrophils % Seg Neuts % (Manual) Lymphocytes % (Manual) Seg Neutrophils # Seg Neutrophils # Man Lymphocytes # (Manual) APTT POC ABG pH ABG pH POC ABG pCO2 POC ABG pO2 ABG pO2 ABG HCO3 ABG Base Excess ABG Hemoglobin VBG pH Oxyhemoglobin Sodium Potassium Chloride Carbon Dioxide BUN Creatinine Glucose POC Glucose 182 H 218 H 121 H Lactic Acid Calcium AST ALT Alkaline Phosphatase CK-MB (CK-2) CK-MB (CK-2) Rel Index Total Protein Albumin TSH Urine WBC (Auto) Salicylates 04/21/17 04/21/17 04/21/17 00:08 05:16 12:41 WBC RBC Hgb Hct MCV MCH RDW Plt Count Lymph % (Auto) Arthur % (Auto) Eos % (Auto) Arthur # Seg Neutrophils % Seg Neuts % (Manual) Lymphocytes % (Manual) Seg Neutrophils # Seg Neutrophils # Man Lymphocytes # (Manual) APTT POC ABG pH ABG pH POC ABG pCO2 POC ABG pO2 ABG pO2 ABG HCO3 ABG Base Excess ABG Hemoglobin VBG pH Oxyhemoglobin Sodium Potassium Chloride Carbon Dioxide BUN Creatinine Glucose POC Glucose 128 H 120 H 216 H Lactic Acid Calcium AST ALT Alkaline Phosphatase CK-MB (CK-2) CK-MB (CK-2) Rel Index Total Protein Albumin TSH Urine WBC (Auto) Salicylates 04/21/17 04/22/17 04/22/17 23:40 14:12 23:38 WBC RBC Hgb Hct MCV MCH RDW Plt Count Lymph % (Auto) Arthur % (Auto) Eos % (Auto) Arthur # Seg Neutrophils % Seg Neuts % (Manual) Lymphocytes % (Manual) Seg Neutrophils # Seg Neutrophils # Man Lymphocytes # (Manual) APTT POC ABG pH ABG pH POC ABG pCO2 POC ABG pO2 ABG pO2 ABG HCO3 ABG Base Excess ABG Hemoglobin VBG pH Oxyhemoglobin Sodium Potassium Chloride Carbon Dioxide BUN Creatinine Glucose POC Glucose 157 H 242 H 117 H Lactic Acid Calcium AST ALT Alkaline Phosphatase CK-MB (CK-2) CK-MB (CK-2) Rel Index Total Protein Albumin TSH Urine WBC (Auto) Salicylates 04/23/17 04/23/17 04/24/17 05:18 14:01 03:24 WBC RBC Hgb Hct MCV MCH RDW Plt Count Lymph % (Auto) Arthur % (Auto) Eos % (Auto) Arthur # Seg Neutrophils % Seg Neuts % (Manual) Lymphocytes % (Manual) Seg Neutrophils # Seg Neutrophils # Man Lymphocytes # (Manual) APTT POC ABG pH ABG pH POC ABG pCO2 POC ABG pO2 ABG pO2 ABG HCO3 ABG Base Excess ABG Hemoglobin VBG pH Oxyhemoglobin Sodium Potassium Chloride Carbon Dioxide BUN Creatinine Glucose POC Glucose 163 H 57 L 177 H Lactic Acid Calcium AST ALT Alkaline Phosphatase CK-MB (CK-2) CK-MB (CK-2) Rel Index Total Protein Albumin TSH Urine WBC (Auto) Salicylates 04/24/17 04/24/17 04/24/17 04:00 04:00 06:33 WBC RBC Hgb 9.9 L Hct 30.0 L MCV 79 L MCH 26 L RDW 17.1 H Plt Count 625 H Lymph % (Auto) Arthur % (Auto) 8.4 H Eos % (Auto) Arthur # Seg Neutrophils % Seg Neuts % (Manual) Lymphocytes % (Manual) Seg Neutrophils # Seg Neutrophils # Man Lymphocytes # (Manual) APTT POC ABG pH ABG pH POC ABG pCO2 POC ABG pO2 ABG pO2 ABG HCO3 ABG Base Excess ABG Hemoglobin VBG pH Oxyhemoglobin Sodium 136 L Potassium Chloride 94.9 L Carbon Dioxide BUN 40 H Creatinine 0.6 L Glucose 176 H POC Glucose 230 H Lactic Acid Calcium AST 67 H ALT Alkaline Phosphatase 294 H CK-MB (CK-2) CK-MB (CK-2) Rel Index Total Protein 9.0 H Albumin 2.5 L TSH Urine WBC (Auto) Salicylates 04/24/17 04/25/17 04/25/17 13:50 00:22 02:55 WBC RBC 3.54 L Hgb 9.0 L Hct 27.9 L MCV 79 L MCH 26 L RDW 17.5 H Plt Count 574 H Lymph % (Auto) Arthur % (Auto) 10.4 H Eos % (Auto) Arthur # 1.0 H Seg Neutrophils % Seg Neuts % (Manual) Lymphocytes % (Manual) Seg Neutrophils # Seg Neutrophils # Man Lymphocytes # (Manual) APTT POC ABG pH ABG pH POC ABG pCO2 POC ABG pO2 ABG pO2 ABG HCO3 ABG Base Excess ABG Hemoglobin VBG pH Oxyhemoglobin Sodium Potassium Chloride Carbon Dioxide BUN Creatinine Glucose POC Glucose 116 H < 40 L Lactic Acid Calcium AST ALT Alkaline Phosphatase CK-MB (CK-2) CK-MB (CK-2) Rel Index Total Protein Albumin TSH Urine WBC (Auto) Salicylates 04/25/17 04/25/17 04/25/17 02:55 11:15 18:36 WBC RBC Hgb Hct MCV MCH RDW Plt Count Lymph % (Auto) Arthur % (Auto) Eos % (Auto) Arthur # Seg Neutrophils % Seg Neuts % (Manual) Lymphocytes % (Manual) Seg Neutrophils # Seg Neutrophils # Man Lymphocytes # (Manual) APTT POC ABG pH ABG pH POC ABG pCO2 POC ABG pO2 ABG pO2 ABG HCO3 ABG Base Excess ABG Hemoglobin VBG pH Oxyhemoglobin Sodium Potassium Chloride 96.2 L Carbon Dioxide BUN 39 H Creatinine 0.7 L Glucose 125 H POC Glucose 227 H 280 H Lactic Acid Calcium AST ALT Alkaline Phosphatase 247 H CK-MB (CK-2) CK-MB (CK-2) Rel Index Total Protein Albumin 2.7 L TSH Urine WBC (Auto) Salicylates 04/25/17 04/26/17 04/26/17 21:49 06:53 07:27 WBC RBC 3.61 L Hgb 9.1 L Hct 28.1 L MCV 78 L MCH 25 L RDW 17.4 H Plt Count 594 H Lymph % (Auto) Arthur % (Auto) 9.2 H Eos % (Auto) Arthur # 1.0 H Seg Neutrophils % 70.6 H Seg Neuts % (Manual) Lymphocytes % (Manual) Seg Neutrophils # Seg Neutrophils # Man Lymphocytes # (Manual) APTT POC ABG pH ABG pH POC ABG pCO2 POC ABG pO2 ABG pO2 ABG HCO3 ABG Base Excess ABG Hemoglobin VBG pH Oxyhemoglobin Sodium Potassium Chloride Carbon Dioxide BUN Creatinine Glucose POC Glucose 192 H 60 L Lactic Acid Calcium AST ALT Alkaline Phosphatase CK-MB (CK-2) CK-MB (CK-2) Rel Index Total Protein Albumin TSH Urine WBC (Auto) Salicylates 04/26/17 04/26/17 04/26/17 07:27 07:28 13:32 WBC RBC Hgb Hct MCV MCH RDW Plt Count Lymph % (Auto) Arthur % (Auto) Eos % (Auto) Arthur # Seg Neutrophils % Seg Neuts % (Manual) Lymphocytes % (Manual) Seg Neutrophils # Seg Neutrophils # Man Lymphocytes # (Manual) APTT POC ABG pH ABG pH POC ABG pCO2 POC ABG pO2 ABG pO2 ABG HCO3 ABG Base Excess ABG Hemoglobin VBG pH Oxyhemoglobin Sodium Potassium Chloride 95.0 L Carbon Dioxide BUN 42 H Creatinine 0.7 L Glucose 172 H POC Glucose 190 H 168 H Lactic Acid Calcium AST 56 H ALT Alkaline Phosphatase 274 H CK-MB (CK-2) CK-MB (CK-2) Rel Index Total Protein 8.9 H Albumin 2.7 L TSH Urine WBC (Auto) Salicylates 04/26/17 04/27/17 04/27/17 23:36 05:10 05:10 WBC RBC 3.49 L Hgb 8.7 L Hct 27.0 L MCV 77 L MCH 25 L RDW 17.4 H Plt Count 558 H Lymph % (Auto) Arthur % (Auto) 9.6 H Eos % (Auto) Arthur # Seg Neutrophils % Seg Neuts % (Manual) Lymphocytes % (Manual) Seg Neutrophils # Seg Neutrophils # Man Lymphocytes # (Manual) APTT POC ABG pH ABG pH POC ABG pCO2 POC ABG pO2 ABG pO2 ABG HCO3 ABG Base Excess ABG Hemoglobin VBG pH Oxyhemoglobin Sodium 133 L Potassium Chloride 93.5 L Carbon Dioxide BUN 40 H Creatinine 0.7 L Glucose 179 H POC Glucose 204 H Lactic Acid Calcium AST 73 H ALT 58 H Alkaline Phosphatase 294 H CK-MB (CK-2) CK-MB (CK-2) Rel Index Total Protein 8.7 H Albumin 2.4 L TSH Urine WBC (Auto) Salicylates 04/27/17 04/27/17 04/27/17 05:45 14:08 23:46 WBC RBC Hgb Hct MCV MCH RDW Plt Count Lymph % (Auto) Arthur % (Auto) Eos % (Auto) Arthur # Seg Neutrophils % Seg Neuts % (Manual) Lymphocytes % (Manual) Seg Neutrophils # Seg Neutrophils # Man Lymphocytes # (Manual) APTT POC ABG pH ABG pH POC ABG pCO2 POC ABG pO2 ABG pO2 ABG HCO3 ABG Base Excess ABG Hemoglobin VBG pH Oxyhemoglobin Sodium Potassium Chloride Carbon Dioxide BUN Creatinine Glucose POC Glucose 200 H 206 H 207 H Lactic Acid Calcium AST ALT Alkaline Phosphatase CK-MB (CK-2) CK-MB (CK-2) Rel Index Total Protein Albumin TSH Urine WBC (Auto) Salicylates 04/28/17 04/28/17 04/28/17 04:48 04:53 05:10 WBC RBC 3.48 L Hgb 8.8 L Hct 26.7 L MCV 77 L MCH 25 L RDW 17.0 H Plt Count 515 H Lymph % (Auto) Arthur % (Auto) 8.4 H Eos % (Auto) Arthur # Seg Neutrophils % 70.6 H Seg Neuts % (Manual) Lymphocytes % (Manual) Seg Neutrophils # Seg Neutrophils # Man Lymphocytes # (Manual) APTT POC ABG pH ABG pH POC ABG pCO2 POC ABG pO2 ABG pO2 ABG HCO3 ABG Base Excess ABG Hemoglobin VBG pH Oxyhemoglobin Sodium Potassium Chloride Carbon Dioxide BUN Creatinine Glucose POC Glucose 43 L 41 L Lactic Acid Calcium AST ALT Alkaline Phosphatase CK-MB (CK-2) CK-MB (CK-2) Rel Index Total Protein Albumin TSH Urine WBC (Auto) Salicylates 04/28/17 04/28/17 04/28/17 05:10 14:06 22:07 WBC RBC Hgb Hct MCV MCH RDW Plt Count Lymph % (Auto) Arthur % (Auto) Eos % (Auto) Arthur # Seg Neutrophils % Seg Neuts % (Manual) Lymphocytes % (Manual) Seg Neutrophils # Seg Neutrophils # Man Lymphocytes # (Manual) APTT POC ABG pH ABG pH POC ABG pCO2 POC ABG pO2 ABG pO2 ABG HCO3 ABG Base Excess ABG Hemoglobin VBG pH Oxyhemoglobin Sodium 136 L Potassium Chloride 95.2 L Carbon Dioxide BUN 42 H Creatinine Glucose 63 L POC Glucose 303 H 227 H Lactic Acid Calcium AST 45 H ALT Alkaline Phosphatase 271 H CK-MB (CK-2) CK-MB (CK-2) Rel Index Total Protein 8.9 H Albumin 2.5 L TSH Urine WBC (Auto) Salicylates 04/29/17 04/29/17 04/29/17 06:40 14:11 21:35 WBC RBC Hgb Hct MCV MCH RDW Plt Count Lymph % (Auto) Arthur % (Auto) Eos % (Auto) Arthur # Seg Neutrophils % Seg Neuts % (Manual) Lymphocytes % (Manual) Seg Neutrophils # Seg Neutrophils # Man Lymphocytes # (Manual) APTT POC ABG pH ABG pH POC ABG pCO2 POC ABG pO2 ABG pO2 ABG HCO3 ABG Base Excess ABG Hemoglobin VBG pH Oxyhemoglobin Sodium Potassium Chloride Carbon Dioxide BUN Creatinine Glucose POC Glucose 254 H 244 H 184 H Lactic Acid Calcium AST ALT Alkaline Phosphatase CK-MB (CK-2) CK-MB (CK-2) Rel Index Total Protein Albumin TSH Urine WBC (Auto) Salicylates 04/30/17 04/30/17 04/30/17 05:17 14:03 22:08 WBC RBC Hgb Hct MCV MCH RDW Plt Count Lymph % (Auto) Arthur % (Auto) Eos % (Auto) Arthur # Seg Neutrophils % Seg Neuts % (Manual) Lymphocytes % (Manual) Seg Neutrophils # Seg Neutrophils # Man Lymphocytes # (Manual) APTT POC ABG pH ABG pH POC ABG pCO2 POC ABG pO2 ABG pO2 ABG HCO3 ABG Base Excess ABG Hemoglobin VBG pH Oxyhemoglobin Sodium Potassium Chloride Carbon Dioxide BUN Creatinine Glucose POC Glucose 173 H 182 H 247 H Lactic Acid Calcium AST ALT Alkaline Phosphatase CK-MB (CK-2) CK-MB (CK-2) Rel Index Total Protein Albumin TSH Urine WBC (Auto) Salicylates 05/01/17 05/01/17 05/01/17 05:04 15:37 18:50 WBC RBC Hgb Hct MCV MCH RDW Plt Count Lymph % (Auto) Arthur % (Auto) Eos % (Auto) Arthur # Seg Neutrophils % Seg Neuts % (Manual) Lymphocytes % (Manual) Seg Neutrophils # Seg Neutrophils # Man Lymphocytes # (Manual) APTT POC ABG pH ABG pH POC ABG pCO2 POC ABG pO2 ABG pO2 ABG HCO3 ABG Base Excess ABG Hemoglobin VBG pH Oxyhemoglobin Sodium Potassium Chloride Carbon Dioxide BUN Creatinine Glucose POC Glucose 335 H 68 L 144 H Lactic Acid Calcium AST ALT Alkaline Phosphatase CK-MB (CK-2) CK-MB (CK-2) Rel Index Total Protein Albumin TSH Urine WBC (Auto) Salicylates 05/01/17 05/02/17 05/02/17 22:13 04:59 14:06 WBC RBC Hgb Hct MCV MCH RDW Plt Count Lymph % (Auto) Arthur % (Auto) Eos % (Auto) Arthur # Seg Neutrophils % Seg Neuts % (Manual) Lymphocytes % (Manual) Seg Neutrophils # Seg Neutrophils # Man Lymphocytes # (Manual) APTT POC ABG pH ABG pH POC ABG pCO2 POC ABG pO2 ABG pO2 ABG HCO3 ABG Base Excess ABG Hemoglobin VBG pH Oxyhemoglobin Sodium Potassium Chloride Carbon Dioxide BUN Creatinine Glucose POC Glucose 192 H 225 H 165 H Lactic Acid Calcium AST ALT Alkaline Phosphatase CK-MB (CK-2) CK-MB (CK-2) Rel Index Total Protein Albumin TSH Urine WBC (Auto) Salicylates 05/02/17 05/03/17 05/03/17 21:20 05:16 16:56 WBC RBC Hgb Hct MCV MCH RDW Plt Count Lymph % (Auto) Arthur % (Auto) Eos % (Auto) Arthur # Seg Neutrophils % Seg Neuts % (Manual) Lymphocytes % (Manual) Seg Neutrophils # Seg Neutrophils # Man Lymphocytes # (Manual) APTT POC ABG pH ABG pH POC ABG pCO2 POC ABG pO2 ABG pO2 ABG HCO3 ABG Base Excess ABG Hemoglobin VBG pH Oxyhemoglobin Sodium Potassium Chloride Carbon Dioxide BUN Creatinine Glucose POC Glucose 181 H 323 H 125 H Lactic Acid Calcium AST ALT Alkaline Phosphatase CK-MB (CK-2) CK-MB (CK-2) Rel Index Total Protein Albumin TSH Urine WBC (Auto) Salicylates 05/03/17 05/04/17 05/04/17 21:46 05:01 14:24 WBC RBC Hgb Hct MCV MCH RDW Plt Count Lymph % (Auto) Arthur % (Auto) Eos % (Auto) Arthur # Seg Neutrophils % Seg Neuts % (Manual) Lymphocytes % (Manual) Seg Neutrophils # Seg Neutrophils # Man Lymphocytes # (Manual) APTT POC ABG pH ABG pH POC ABG pCO2 POC ABG pO2 ABG pO2 ABG HCO3 ABG Base Excess ABG Hemoglobin VBG pH Oxyhemoglobin Sodium Potassium Chloride Carbon Dioxide BUN Creatinine Glucose POC Glucose 210 H 360 H 219 H Lactic Acid Calcium AST ALT Alkaline Phosphatase CK-MB (CK-2) CK-MB (CK-2) Rel Index Total Protein Albumin TSH Urine WBC (Auto) Salicylates 05/04/17 05/05/17 05/05/17 21:39 01:58 05:13 WBC RBC Hgb Hct MCV MCH RDW Plt Count Lymph % (Auto) Arthur % (Auto) Eos % (Auto) Arthur # Seg Neutrophils % Seg Neuts % (Manual) Lymphocytes % (Manual) Seg Neutrophils # Seg Neutrophils # Man Lymphocytes # (Manual) APTT POC ABG pH ABG pH POC ABG pCO2 POC ABG pO2 ABG pO2 ABG HCO3 ABG Base Excess ABG Hemoglobin VBG pH Oxyhemoglobin Sodium Potassium Chloride Carbon Dioxide BUN Creatinine Glucose POC Glucose 126 H 175 H 267 H Lactic Acid Calcium AST ALT Alkaline Phosphatase CK-MB (CK-2) CK-MB (CK-2) Rel Index Total Protein Albumin TSH Urine WBC (Auto) Salicylates 05/05/17 05/05/17 05/05/17 12:19 14:11 21:18 WBC RBC Hgb Hct MCV MCH RDW Plt Count Lymph % (Auto) Arthur % (Auto) Eos % (Auto) Arthur # Seg Neutrophils % Seg Neuts % (Manual) Lymphocytes % (Manual) Seg Neutrophils # Seg Neutrophils # Man Lymphocytes # (Manual) APTT POC ABG pH ABG pH POC ABG pCO2 POC ABG pO2 ABG pO2 ABG HCO3 ABG Base Excess ABG Hemoglobin VBG pH Oxyhemoglobin Sodium Potassium Chloride Carbon Dioxide BUN Creatinine Glucose POC Glucose 221 H 205 H 156 H Lactic Acid Calcium AST ALT Alkaline Phosphatase CK-MB (CK-2) CK-MB (CK-2) Rel Index Total Protein Albumin TSH Urine WBC (Auto) Salicylates 05/06/17 05/06/17 05/06/17 06:02 15:26 21:43 WBC RBC Hgb Hct MCV MCH RDW Plt Count Lymph % (Auto) Arthur % (Auto) Eos % (Auto) Arthur # Seg Neutrophils % Seg Neuts % (Manual) Lymphocytes % (Manual) Seg Neutrophils # Seg Neutrophils # Man Lymphocytes # (Manual) APTT POC ABG pH ABG pH POC ABG pCO2 POC ABG pO2 ABG pO2 ABG HCO3 ABG Base Excess ABG Hemoglobin VBG pH Oxyhemoglobin Sodium Potassium Chloride Carbon Dioxide BUN Creatinine Glucose POC Glucose 263 H 143 H 145 H Lactic Acid Calcium AST ALT Alkaline Phosphatase CK-MB (CK-2) CK-MB (CK-2) Rel Index Total Protein Albumin TSH Urine WBC (Auto) Salicylates 05/07/17 05/07/17 05/07/17 05:52 21:46 21:49 WBC RBC Hgb Hct MCV MCH RDW Plt Count Lymph % (Auto) Arthur % (Auto) Eos % (Auto) Arthur # Seg Neutrophils % Seg Neuts % (Manual) Lymphocytes % (Manual) Seg Neutrophils # Seg Neutrophils # Man Lymphocytes # (Manual) APTT POC ABG pH ABG pH POC ABG pCO2 POC ABG pO2 ABG pO2 ABG HCO3 ABG Base Excess ABG Hemoglobin VBG pH Oxyhemoglobin Sodium Potassium Chloride Carbon Dioxide BUN Creatinine Glucose POC Glucose 242 H < 40 L < 40 L Lactic Acid Calcium AST ALT Alkaline Phosphatase CK-MB (CK-2) CK-MB (CK-2) Rel Index Total Protein Albumin TSH Urine WBC (Auto) Salicylates 05/07/17 05/08/17 05/09/17 22:41 06:14 00:02 WBC RBC Hgb Hct MCV MCH RDW Plt Count Lymph % (Auto) Arthur % (Auto) Eos % (Auto) Arthur # Seg Neutrophils % Seg Neuts % (Manual) Lymphocytes % (Manual) Seg Neutrophils # Seg Neutrophils # Man Lymphocytes # (Manual) APTT POC ABG pH ABG pH POC ABG pCO2 POC ABG pO2 ABG pO2 ABG HCO3 ABG Base Excess ABG Hemoglobin VBG pH Oxyhemoglobin Sodium Potassium Chloride Carbon Dioxide BUN Creatinine Glucose POC Glucose 183 H 329 H 130 H Lactic Acid Calcium AST ALT Alkaline Phosphatase CK-MB (CK-2) CK-MB (CK-2) Rel Index Total Protein Albumin TSH Urine WBC (Auto) Salicylates 05/09/17 05/09/17 05/09/17 06:08 14:06 21:44 WBC RBC Hgb Hct MCV MCH RDW Plt Count Lymph % (Auto) Arthur % (Auto) Eos % (Auto) Arthur # Seg Neutrophils % Seg Neuts % (Manual) Lymphocytes % (Manual) Seg Neutrophils # Seg Neutrophils # Man Lymphocytes # (Manual) APTT POC ABG pH ABG pH POC ABG pCO2 POC ABG pO2 ABG pO2 ABG HCO3 ABG Base Excess ABG Hemoglobin VBG pH Oxyhemoglobin Sodium Potassium Chloride Carbon Dioxide BUN Creatinine Glucose POC Glucose 241 H 251 H 198 H Lactic Acid Calcium AST ALT Alkaline Phosphatase CK-MB (CK-2) CK-MB (CK-2) Rel Index Total Protein Albumin TSH Urine WBC (Auto) Salicylates 05/10/17 05/10/17 05/10/17 05:18 14:44 21:53 WBC RBC Hgb Hct MCV MCH RDW Plt Count Lymph % (Auto) Arthur % (Auto) Eos % (Auto) Arthur # Seg Neutrophils % Seg Neuts % (Manual) Lymphocytes % (Manual) Seg Neutrophils # Seg Neutrophils # Man Lymphocytes # (Manual) APTT POC ABG pH ABG pH POC ABG pCO2 POC ABG pO2 ABG pO2 ABG HCO3 ABG Base Excess ABG Hemoglobin VBG pH Oxyhemoglobin Sodium Potassium Chloride Carbon Dioxide BUN Creatinine Glucose POC Glucose 166 H 224 H 171 H Lactic Acid Calcium AST ALT Alkaline Phosphatase CK-MB (CK-2) CK-MB (CK-2) Rel Index Total Protein Albumin TSH Urine WBC (Auto) Salicylates 05/11/17 05/11/17 05/11/17 05:45 13:44 21:42 WBC RBC Hgb Hct MCV MCH RDW Plt Count Lymph % (Auto) Arthur % (Auto) Eos % (Auto) Arthur # Seg Neutrophils % Seg Neuts % (Manual) Lymphocytes % (Manual) Seg Neutrophils # Seg Neutrophils # Man Lymphocytes # (Manual) APTT POC ABG pH ABG pH POC ABG pCO2 POC ABG pO2 ABG pO2 ABG HCO3 ABG Base Excess ABG Hemoglobin VBG pH Oxyhemoglobin Sodium Potassium Chloride Carbon Dioxide BUN Creatinine Glucose POC Glucose 199 H 150 H 163 H Lactic Acid Calcium AST ALT Alkaline Phosphatase CK-MB (CK-2) CK-MB (CK-2) Rel Index Total Protein Albumin TSH Urine WBC (Auto) Salicylates 05/12/17 05/12/17 05/12/17 06:03 13:59 21:22 WBC RBC Hgb Hct MCV MCH RDW Plt Count Lymph % (Auto) Arthur % (Auto) Eos % (Auto) Arthur # Seg Neutrophils % Seg Neuts % (Manual) Lymphocytes % (Manual) Seg Neutrophils # Seg Neutrophils # Man Lymphocytes # (Manual) APTT POC ABG pH ABG pH POC ABG pCO2 POC ABG pO2 ABG pO2 ABG HCO3 ABG Base Excess ABG Hemoglobin VBG pH Oxyhemoglobin Sodium Potassium Chloride Carbon Dioxide BUN Creatinine Glucose POC Glucose 147 H 243 H 116 H Lactic Acid Calcium AST ALT Alkaline Phosphatase CK-MB (CK-2) CK-MB (CK-2) Rel Index Total Protein Albumin TSH Urine WBC (Auto) Salicylates 05/13/17 05/13/17 05/13/17 05:28 13:49 21:29 WBC RBC Hgb Hct MCV MCH RDW Plt Count Lymph % (Auto) Arthur % (Auto) Eos % (Auto) Arthur # Seg Neutrophils % Seg Neuts % (Manual) Lymphocytes % (Manual) Seg Neutrophils # Seg Neutrophils # Man Lymphocytes # (Manual) APTT POC ABG pH ABG pH POC ABG pCO2 POC ABG pO2 ABG pO2 ABG HCO3 ABG Base Excess ABG Hemoglobin VBG pH Oxyhemoglobin Sodium Potassium Chloride Carbon Dioxide BUN Creatinine Glucose POC Glucose 213 H 224 H 379 H Lactic Acid Calcium AST ALT Alkaline Phosphatase CK-MB (CK-2) CK-MB (CK-2) Rel Index Total Protein Albumin TSH Urine WBC (Auto) Salicylates 05/14/17 05/14/17 05/14/17 05:17 13:35 21:23 WBC RBC Hgb Hct MCV MCH RDW Plt Count Lymph % (Auto) Arthur % (Auto) Eos % (Auto) Arthur # Seg Neutrophils % Seg Neuts % (Manual) Lymphocytes % (Manual) Seg Neutrophils # Seg Neutrophils # Man Lymphocytes # (Manual) APTT POC ABG pH ABG pH POC ABG pCO2 POC ABG pO2 ABG pO2 ABG HCO3 ABG Base Excess ABG Hemoglobin VBG pH Oxyhemoglobin Sodium Potassium Chloride Carbon Dioxide BUN Creatinine Glucose POC Glucose 234 H 242 H 218 H Lactic Acid Calcium AST ALT Alkaline Phosphatase CK-MB (CK-2) CK-MB (CK-2) Rel Index Total Protein Albumin TSH Urine WBC (Auto) Salicylates 05/15/17 05/15/17 05/16/17 04:58 13:53 01:34 WBC RBC Hgb Hct MCV MCH RDW Plt Count Lymph % (Auto) Arthur % (Auto) Eos % (Auto) Arthur # Seg Neutrophils % Seg Neuts % (Manual) Lymphocytes % (Manual) Seg Neutrophils # Seg Neutrophils # Man Lymphocytes # (Manual) APTT POC ABG pH ABG pH POC ABG pCO2 POC ABG pO2 ABG pO2 ABG HCO3 ABG Base Excess ABG Hemoglobin VBG pH Oxyhemoglobin Sodium Potassium Chloride Carbon Dioxide BUN Creatinine Glucose POC Glucose 310 H 193 H 263 H Lactic Acid Calcium AST ALT Alkaline Phosphatase CK-MB (CK-2) CK-MB (CK-2) Rel Index Total Protein Albumin TSH Urine WBC (Auto) Salicylates 05/16/17 05/16/17 05/16/17 06:03 14:36 21:59 WBC RBC Hgb Hct MCV MCH RDW Plt Count Lymph % (Auto) Arthur % (Auto) Eos % (Auto) Arthur # Seg Neutrophils % Seg Neuts % (Manual) Lymphocytes % (Manual) Seg Neutrophils # Seg Neutrophils # Man Lymphocytes # (Manual) APTT POC ABG pH ABG pH POC ABG pCO2 POC ABG pO2 ABG pO2 ABG HCO3 ABG Base Excess ABG Hemoglobin VBG pH Oxyhemoglobin Sodium Potassium Chloride Carbon Dioxide BUN Creatinine Glucose POC Glucose 330 H 272 H 198 H Lactic Acid Calcium AST ALT Alkaline Phosphatase CK-MB (CK-2) CK-MB (CK-2) Rel Index Total Protein Albumin TSH Urine WBC (Auto) Salicylates 05/17/17 05/17/17 05/18/17 05:48 13:59 05:27 WBC RBC Hgb Hct MCV MCH RDW Plt Count Lymph % (Auto) Arthur % (Auto) Eos % (Auto) Arthur # Seg Neutrophils % Seg Neuts % (Manual) Lymphocytes % (Manual) Seg Neutrophils # Seg Neutrophils # Man Lymphocytes # (Manual) APTT POC ABG pH ABG pH POC ABG pCO2 POC ABG pO2 ABG pO2 ABG HCO3 ABG Base Excess ABG Hemoglobin VBG pH Oxyhemoglobin Sodium Potassium Chloride Carbon Dioxide BUN Creatinine Glucose POC Glucose 204 H 229 H 152 H Lactic Acid Calcium AST ALT Alkaline Phosphatase CK-MB (CK-2) CK-MB (CK-2) Rel Index Total Protein Albumin TSH Urine WBC (Auto) Salicylates 05/18/17 05/18/17 05/19/17 14:16 21:27 04:59 WBC RBC Hgb Hct MCV MCH RDW Plt Count Lymph % (Auto) Arthur % (Auto) Eos % (Auto) Arthur # Seg Neutrophils % Seg Neuts % (Manual) Lymphocytes % (Manual) Seg Neutrophils # Seg Neutrophils # Man Lymphocytes # (Manual) APTT POC ABG pH ABG pH POC ABG pCO2 POC ABG pO2 ABG pO2 ABG HCO3 ABG Base Excess ABG Hemoglobin VBG pH Oxyhemoglobin Sodium Potassium Chloride Carbon Dioxide BUN Creatinine Glucose POC Glucose 217 H 202 H 131 H Lactic Acid Calcium AST ALT Alkaline Phosphatase CK-MB (CK-2) CK-MB (CK-2) Rel Index Total Protein Albumin TSH Urine WBC (Auto) Salicylates 05/19/17 05/20/17 05/20/17 14:57 00:11 05:45 WBC RBC Hgb Hct MCV MCH RDW Plt Count Lymph % (Auto) Arthur % (Auto) Eos % (Auto) Arthur # Seg Neutrophils % Seg Neuts % (Manual) Lymphocytes % (Manual) Seg Neutrophils # Seg Neutrophils # Man Lymphocytes # (Manual) APTT POC ABG pH ABG pH POC ABG pCO2 POC ABG pO2 ABG pO2 ABG HCO3 ABG Base Excess ABG Hemoglobin VBG pH Oxyhemoglobin Sodium Potassium Chloride Carbon Dioxide BUN Creatinine Glucose POC Glucose 216 H 197 H 195 H Lactic Acid Calcium AST ALT Alkaline Phosphatase CK-MB (CK-2) CK-MB (CK-2) Rel Index Total Protein Albumin TSH Urine WBC (Auto) Salicylates 05/20/17 05/20/17 05/21/17 13:29 22:11 05:43 WBC RBC Hgb Hct MCV MCH RDW Plt Count Lymph % (Auto) Arthur % (Auto) Eos % (Auto) Arthur # Seg Neutrophils % Seg Neuts % (Manual) Lymphocytes % (Manual) Seg Neutrophils # Seg Neutrophils # Man Lymphocytes # (Manual) APTT POC ABG pH ABG pH POC ABG pCO2 POC ABG pO2 ABG pO2 ABG HCO3 ABG Base Excess ABG Hemoglobin VBG pH Oxyhemoglobin Sodium Potassium Chloride Carbon Dioxide BUN Creatinine Glucose POC Glucose 138 H 242 H 228 H Lactic Acid Calcium AST ALT Alkaline Phosphatase CK-MB (CK-2) CK-MB (CK-2) Rel Index Total Protein Albumin TSH Urine WBC (Auto) Salicylates 05/21/17 05/21/17 05/22/17 14:06 21:49 05:31 WBC RBC Hgb Hct MCV MCH RDW Plt Count Lymph % (Auto) Arthur % (Auto) Eos % (Auto) Arthur # Seg Neutrophils % Seg Neuts % (Manual) Lymphocytes % (Manual) Seg Neutrophils # Seg Neutrophils # Man Lymphocytes # (Manual) APTT POC ABG pH ABG pH POC ABG pCO2 POC ABG pO2 ABG pO2 ABG HCO3 ABG Base Excess ABG Hemoglobin VBG pH Oxyhemoglobin Sodium Potassium Chloride Carbon Dioxide BUN Creatinine Glucose POC Glucose 191 H 166 H 184 H Lactic Acid Calcium AST ALT Alkaline Phosphatase CK-MB (CK-2) CK-MB (CK-2) Rel Index Total Protein Albumin TSH Urine WBC (Auto) Salicylates 05/22/17 05/22/17 05/23/17 14:03 21:45 05:41 WBC RBC Hgb Hct MCV MCH RDW Plt Count Lymph % (Auto) Arthur % (Auto) Eos % (Auto) Arthur # Seg Neutrophils % Seg Neuts % (Manual) Lymphocytes % (Manual) Seg Neutrophils # Seg Neutrophils # Man Lymphocytes # (Manual) APTT POC ABG pH ABG pH POC ABG pCO2 POC ABG pO2 ABG pO2 ABG HCO3 ABG Base Excess ABG Hemoglobin VBG pH Oxyhemoglobin Sodium Potassium Chloride Carbon Dioxide BUN Creatinine Glucose POC Glucose 206 H 178 H 206 H Lactic Acid Calcium AST ALT Alkaline Phosphatase CK-MB (CK-2) CK-MB (CK-2) Rel Index Total Protein Albumin TSH Urine WBC (Auto) Salicylates 05/23/17 05/23/17 05/24/17 14:09 22:48 05:21 WBC RBC Hgb Hct MCV MCH RDW Plt Count Lymph % (Auto) Arthur % (Auto) Eos % (Auto) Arthur # Seg Neutrophils % Seg Neuts % (Manual) Lymphocytes % (Manual) Seg Neutrophils # Seg Neutrophils # Man Lymphocytes # (Manual) APTT POC ABG pH ABG pH POC ABG pCO2 POC ABG pO2 ABG pO2 ABG HCO3 ABG Base Excess ABG Hemoglobin VBG pH Oxyhemoglobin Sodium Potassium Chloride Carbon Dioxide BUN Creatinine Glucose POC Glucose 148 H 181 H 162 H Lactic Acid Calcium AST ALT Alkaline Phosphatase CK-MB (CK-2) CK-MB (CK-2) Rel Index Total Protein Albumin TSH Urine WBC (Auto) Salicylates 05/24/17 05/24/17 05/25/17 13:32 21:55 06:49 WBC RBC Hgb Hct MCV MCH RDW Plt Count Lymph % (Auto) Arthur % (Auto) Eos % (Auto) Arthur # Seg Neutrophils % Seg Neuts % (Manual) Lymphocytes % (Manual) Seg Neutrophils # Seg Neutrophils # Man Lymphocytes # (Manual) APTT POC ABG pH ABG pH POC ABG pCO2 POC ABG pO2 ABG pO2 ABG HCO3 ABG Base Excess ABG Hemoglobin VBG pH Oxyhemoglobin Sodium Potassium Chloride Carbon Dioxide BUN Creatinine Glucose POC Glucose 216 H 144 H 151 H Lactic Acid Calcium AST ALT Alkaline Phosphatase CK-MB (CK-2) CK-MB (CK-2) Rel Index Total Protein Albumin TSH Urine WBC (Auto) Salicylates 05/25/17 05/25/17 05/26/17 15:32 21:58 05:46 WBC RBC Hgb Hct MCV MCH RDW Plt Count Lymph % (Auto) Arthur % (Auto) Eos % (Auto) Arthur # Seg Neutrophils % Seg Neuts % (Manual) Lymphocytes % (Manual) Seg Neutrophils # Seg Neutrophils # Man Lymphocytes # (Manual) APTT POC ABG pH ABG pH POC ABG pCO2 POC ABG pO2 ABG pO2 ABG HCO3 ABG Base Excess ABG Hemoglobin VBG pH Oxyhemoglobin Sodium Potassium Chloride Carbon Dioxide BUN Creatinine Glucose POC Glucose 136 H 160 H 225 H Lactic Acid Calcium AST ALT Alkaline Phosphatase CK-MB (CK-2) CK-MB (CK-2) Rel Index Total Protein Albumin TSH Urine WBC (Auto) Salicylates 05/26/17 05/27/17 05/27/17 22:32 05:52 14:47 WBC RBC Hgb Hct MCV MCH RDW Plt Count Lymph % (Auto) Arthur % (Auto) Eos % (Auto) Arthur # Seg Neutrophils % Seg Neuts % (Manual) Lymphocytes % (Manual) Seg Neutrophils # Seg Neutrophils # Man Lymphocytes # (Manual) APTT POC ABG pH ABG pH POC ABG pCO2 POC ABG pO2 ABG pO2 ABG HCO3 ABG Base Excess ABG Hemoglobin VBG pH Oxyhemoglobin Sodium Potassium Chloride Carbon Dioxide BUN Creatinine Glucose POC Glucose 161 H 197 H 117 H Lactic Acid Calcium AST ALT Alkaline Phosphatase CK-MB (CK-2) CK-MB (CK-2) Rel Index Total Protein Albumin TSH Urine WBC (Auto) Salicylates 05/27/17 05/28/17 05/28/17 21:49 05:54 06:49 WBC RBC Hgb Hct MCV MCH RDW Plt Count Lymph % (Auto) Arthur % (Auto) Eos % (Auto) Arthur # Seg Neutrophils % Seg Neuts % (Manual) Lymphocytes % (Manual) Seg Neutrophils # Seg Neutrophils # Man Lymphocytes # (Manual) APTT POC ABG pH ABG pH POC ABG pCO2 POC ABG pO2 ABG pO2 ABG HCO3 ABG Base Excess ABG Hemoglobin VBG pH Oxyhemoglobin Sodium Potassium Chloride Carbon Dioxide BUN Creatinine Glucose POC Glucose 148 H 60 L 59 L Lactic Acid Calcium AST ALT Alkaline Phosphatase CK-MB (CK-2) CK-MB (CK-2) Rel Index Total Protein Albumin TSH Urine WBC (Auto) Salicylates 05/28/17 05/28/17 05/28/17 14:32 16:04 21:43 WBC RBC Hgb Hct MCV MCH RDW Plt Count Lymph % (Auto) Arthur % (Auto) Eos % (Auto) Arthur # Seg Neutrophils % Seg Neuts % (Manual) Lymphocytes % (Manual) Seg Neutrophils # Seg Neutrophils # Man Lymphocytes # (Manual) APTT POC ABG pH ABG pH POC ABG pCO2 POC ABG pO2 ABG pO2 ABG HCO3 ABG Base Excess ABG Hemoglobin VBG pH Oxyhemoglobin Sodium Potassium Chloride Carbon Dioxide BUN Creatinine Glucose POC Glucose 55 L 109 H 235 H Lactic Acid Calcium AST ALT Alkaline Phosphatase CK-MB (CK-2) CK-MB (CK-2) Rel Index Total Protein Albumin TSH Urine WBC (Auto) Salicylates 05/29/17 05/29/17 05/29/17 06:14 13:23 22:46 WBC RBC Hgb Hct MCV MCH RDW Plt Count Lymph % (Auto) Arthur % (Auto) Eos % (Auto) Arthur # Seg Neutrophils % Seg Neuts % (Manual) Lymphocytes % (Manual) Seg Neutrophils # Seg Neutrophils # Man Lymphocytes # (Manual) APTT POC ABG pH ABG pH POC ABG pCO2 POC ABG pO2 ABG pO2 ABG HCO3 ABG Base Excess ABG Hemoglobin VBG pH Oxyhemoglobin Sodium Potassium Chloride Carbon Dioxide BUN Creatinine Glucose POC Glucose 260 H 173 H 151 H Lactic Acid Calcium AST ALT Alkaline Phosphatase CK-MB (CK-2) CK-MB (CK-2) Rel Index Total Protein Albumin TSH Urine WBC (Auto) Salicylates 05/30/17 05/30/17 05/31/17 05:20 13:56 14:56 WBC RBC Hgb Hct MCV MCH RDW Plt Count Lymph % (Auto) Arthur % (Auto) Eos % (Auto) Arthur # Seg Neutrophils % Seg Neuts % (Manual) Lymphocytes % (Manual) Seg Neutrophils # Seg Neutrophils # Man Lymphocytes # (Manual) APTT POC ABG pH ABG pH POC ABG pCO2 POC ABG pO2 ABG pO2 ABG HCO3 ABG Base Excess ABG Hemoglobin VBG pH Oxyhemoglobin Sodium Potassium Chloride Carbon Dioxide BUN Creatinine Glucose POC Glucose 250 H 187 H 139 H Lactic Acid Calcium AST ALT Alkaline Phosphatase CK-MB (CK-2) CK-MB (CK-2) Rel Index Total Protein Albumin TSH Urine WBC (Auto) Salicylates 06/01/17 06/01/17 06/01/17 05:37 13:10 21:34 WBC RBC Hgb Hct MCV MCH RDW Plt Count Lymph % (Auto) Arthur % (Auto) Eos % (Auto) Arthur # Seg Neutrophils % Seg Neuts % (Manual) Lymphocytes % (Manual) Seg Neutrophils # Seg Neutrophils # Man Lymphocytes # (Manual) APTT POC ABG pH ABG pH POC ABG pCO2 POC ABG pO2 ABG pO2 ABG HCO3 ABG Base Excess ABG Hemoglobin VBG pH Oxyhemoglobin Sodium Potassium Chloride Carbon Dioxide BUN Creatinine Glucose POC Glucose 207 H 136 H 109 H Lactic Acid Calcium AST ALT Alkaline Phosphatase CK-MB (CK-2) CK-MB (CK-2) Rel Index Total Protein Albumin TSH Urine WBC (Auto) Salicylates 06/02/17 06/02/17 06/03/17 05:15 15:44 00:49 WBC RBC Hgb Hct MCV MCH RDW Plt Count Lymph % (Auto) Arthur % (Auto) Eos % (Auto) Arthur # Seg Neutrophils % Seg Neuts % (Manual) Lymphocytes % (Manual) Seg Neutrophils # Seg Neutrophils # Man Lymphocytes # (Manual) APTT POC ABG pH ABG pH POC ABG pCO2 POC ABG pO2 ABG pO2 ABG HCO3 ABG Base Excess ABG Hemoglobin VBG pH Oxyhemoglobin Sodium Potassium Chloride Carbon Dioxide BUN Creatinine Glucose POC Glucose 121 H 229 H 134 H Lactic Acid Calcium AST ALT Alkaline Phosphatase CK-MB (CK-2) CK-MB (CK-2) Rel Index Total Protein Albumin TSH Urine WBC (Auto) Salicylates 06/03/17 06/03/17 06/04/17 13:46 22:42 05:37 WBC RBC Hgb Hct MCV MCH RDW Plt Count Lymph % (Auto) Arthur % (Auto) Eos % (Auto) Arthur # Seg Neutrophils % Seg Neuts % (Manual) Lymphocytes % (Manual) Seg Neutrophils # Seg Neutrophils # Man Lymphocytes # (Manual) APTT POC ABG pH ABG pH POC ABG pCO2 POC ABG pO2 ABG pO2 ABG HCO3 ABG Base Excess ABG Hemoglobin VBG pH Oxyhemoglobin Sodium Potassium Chloride Carbon Dioxide BUN Creatinine Glucose POC Glucose 230 H 158 H 144 H Lactic Acid Calcium AST ALT Alkaline Phosphatase CK-MB (CK-2) CK-MB (CK-2) Rel Index Total Protein Albumin TSH Urine WBC (Auto) Salicylates 06/04/17 06/04/17 06/04/17 14:04 22:17 23:18 WBC RBC Hgb Hct MCV MCH RDW Plt Count Lymph % (Auto) Arthur % (Auto) Eos % (Auto) Arthur # Seg Neutrophils % Seg Neuts % (Manual) Lymphocytes % (Manual) Seg Neutrophils # Seg Neutrophils # Man Lymphocytes # (Manual) APTT POC ABG pH ABG pH POC ABG pCO2 POC ABG pO2 ABG pO2 ABG HCO3 ABG Base Excess ABG Hemoglobin VBG pH Oxyhemoglobin Sodium Potassium Chloride Carbon Dioxide BUN Creatinine Glucose POC Glucose 168 H 53 L 121 H Lactic Acid Calcium AST ALT Alkaline Phosphatase CK-MB (CK-2) CK-MB (CK-2) Rel Index Total Protein Albumin TSH Urine WBC (Auto) Salicylates 06/05/17 06/05/17 06/05/17 05:27 14:19 21:35 WBC RBC Hgb Hct MCV MCH RDW Plt Count Lymph % (Auto) Arthur % (Auto) Eos % (Auto) Arthur # Seg Neutrophils % Seg Neuts % (Manual) Lymphocytes % (Manual) Seg Neutrophils # Seg Neutrophils # Man Lymphocytes # (Manual) APTT POC ABG pH ABG pH POC ABG pCO2 POC ABG pO2 ABG pO2 ABG HCO3 ABG Base Excess ABG Hemoglobin VBG pH Oxyhemoglobin Sodium Potassium Chloride Carbon Dioxide BUN Creatinine Glucose POC Glucose 157 H 130 H 143 H Lactic Acid Calcium AST ALT Alkaline Phosphatase CK-MB (CK-2) CK-MB (CK-2) Rel Index Total Protein Albumin TSH Urine WBC (Auto) Salicylates 06/06/17 06/06/17 06/06/17 05:44 14:33 21:54 WBC RBC Hgb Hct MCV MCH RDW Plt Count Lymph % (Auto) Arthur % (Auto) Eos % (Auto) Arthur # Seg Neutrophils % Seg Neuts % (Manual) Lymphocytes % (Manual) Seg Neutrophils # Seg Neutrophils # Man Lymphocytes # (Manual) APTT POC ABG pH ABG pH POC ABG pCO2 POC ABG pO2 ABG pO2 ABG HCO3 ABG Base Excess ABG Hemoglobin VBG pH Oxyhemoglobin Sodium Potassium Chloride Carbon Dioxide BUN Creatinine Glucose POC Glucose 184 H 171 H 135 H Lactic Acid Calcium AST ALT Alkaline Phosphatase CK-MB (CK-2) CK-MB (CK-2) Rel Index Total Protein Albumin TSH Urine WBC (Auto) Salicylates 06/07/17 06/07/17 06/07/17 06:23 14:32 15:37 WBC RBC Hgb Hct MCV MCH RDW Plt Count Lymph % (Auto) Arthur % (Auto) Eos % (Auto) Arthur # Seg Neutrophils % Seg Neuts % (Manual) Lymphocytes % (Manual) Seg Neutrophils # Seg Neutrophils # Man Lymphocytes # (Manual) APTT POC ABG pH ABG pH POC ABG pCO2 POC ABG pO2 ABG pO2 ABG HCO3 ABG Base Excess ABG Hemoglobin VBG pH Oxyhemoglobin Sodium Potassium Chloride Carbon Dioxide BUN Creatinine Glucose POC Glucose 162 H 174 H 176 H Lactic Acid Calcium AST ALT Alkaline Phosphatase CK-MB (CK-2) CK-MB (CK-2) Rel Index Total Protein Albumin TSH Urine WBC (Auto) Salicylates 06/07/17 06/08/17 06/08/17 23:18 05:41 13:23 WBC RBC Hgb Hct MCV MCH RDW Plt Count Lymph % (Auto) Arthur % (Auto) Eos % (Auto) Arthur # Seg Neutrophils % Seg Neuts % (Manual) Lymphocytes % (Manual) Seg Neutrophils # Seg Neutrophils # Man Lymphocytes # (Manual) APTT POC ABG pH ABG pH POC ABG pCO2 POC ABG pO2 ABG pO2 ABG HCO3 ABG Base Excess ABG Hemoglobin VBG pH Oxyhemoglobin Sodium Potassium Chloride Carbon Dioxide BUN Creatinine Glucose POC Glucose 119 H 197 H 197 H Lactic Acid Calcium AST ALT Alkaline Phosphatase CK-MB (CK-2) CK-MB (CK-2) Rel Index Total Protein Albumin TSH Urine WBC (Auto) Salicylates 06/08/17 06/09/17 06/09/17 21:34 05:54 15:07 WBC RBC Hgb Hct MCV MCH RDW Plt Count Lymph % (Auto) Arthur % (Auto) Eos % (Auto) Arthur # Seg Neutrophils % Seg Neuts % (Manual) Lymphocytes % (Manual) Seg Neutrophils # Seg Neutrophils # Man Lymphocytes # (Manual) APTT POC ABG pH ABG pH POC ABG pCO2 POC ABG pO2 ABG pO2 ABG HCO3 ABG Base Excess ABG Hemoglobin VBG pH Oxyhemoglobin Sodium Potassium Chloride Carbon Dioxide BUN Creatinine Glucose POC Glucose 50 L 140 H 227 H Lactic Acid Calcium AST ALT Alkaline Phosphatase CK-MB (CK-2) CK-MB (CK-2) Rel Index Total Protein Albumin TSH Urine WBC (Auto) Salicylates 06/09/17 06/10/17 06/10/17 20:39 05:15 13:22 WBC RBC Hgb Hct MCV MCH RDW Plt Count Lymph % (Auto) Arthur % (Auto) Eos % (Auto) Arthur # Seg Neutrophils % Seg Neuts % (Manual) Lymphocytes % (Manual) Seg Neutrophils # Seg Neutrophils # Man Lymphocytes # (Manual) APTT POC ABG pH ABG pH POC ABG pCO2 POC ABG pO2 ABG pO2 ABG HCO3 ABG Base Excess ABG Hemoglobin VBG pH Oxyhemoglobin Sodium Potassium Chloride Carbon Dioxide BUN Creatinine Glucose POC Glucose 280 H 206 H 153 H Lactic Acid Calcium AST ALT Alkaline Phosphatase CK-MB (CK-2) CK-MB (CK-2) Rel Index Total Protein Albumin TSH Urine WBC (Auto) Salicylates 06/11/17 06/11/17 06/11/17 00:08 05:36 12:15 WBC RBC Hgb Hct MCV MCH RDW Plt Count Lymph % (Auto) Arthur % (Auto) Eos % (Auto) Arthur # Seg Neutrophils % Seg Neuts % (Manual) Lymphocytes % (Manual) Seg Neutrophils # Seg Neutrophils # Man Lymphocytes # (Manual) APTT POC ABG pH ABG pH POC ABG pCO2 POC ABG pO2 ABG pO2 ABG HCO3 ABG Base Excess ABG Hemoglobin VBG pH Oxyhemoglobin Sodium Potassium Chloride Carbon Dioxide BUN Creatinine Glucose POC Glucose 136 H 158 H 172 H Lactic Acid Calcium AST ALT Alkaline Phosphatase CK-MB (CK-2) CK-MB (CK-2) Rel Index Total Protein Albumin TSH Urine WBC (Auto) Salicylates 06/11/17 06/12/17 06/12/17 21:41 05:48 15:57 WBC RBC Hgb Hct MCV MCH RDW Plt Count Lymph % (Auto) Arthur % (Auto) Eos % (Auto) Arthur # Seg Neutrophils % Seg Neuts % (Manual) Lymphocytes % (Manual) Seg Neutrophils # Seg Neutrophils # Man Lymphocytes # (Manual) APTT POC ABG pH ABG pH POC ABG pCO2 POC ABG pO2 ABG pO2 ABG HCO3 ABG Base Excess ABG Hemoglobin VBG pH Oxyhemoglobin Sodium Potassium Chloride Carbon Dioxide BUN Creatinine Glucose POC Glucose 145 H 202 H 117 H Lactic Acid Calcium AST ALT Alkaline Phosphatase CK-MB (CK-2) CK-MB (CK-2) Rel Index Total Protein Albumin TSH Urine WBC (Auto) Salicylates 06/12/17 06/13/17 06/13/17 21:31 05:30 13:52 WBC RBC Hgb Hct MCV MCH RDW Plt Count Lymph % (Auto) Arthur % (Auto) Eos % (Auto) Arthur # Seg Neutrophils % Seg Neuts % (Manual) Lymphocytes % (Manual) Seg Neutrophils # Seg Neutrophils # Man Lymphocytes # (Manual) APTT POC ABG pH ABG pH POC ABG pCO2 POC ABG pO2 ABG pO2 ABG HCO3 ABG Base Excess ABG Hemoglobin VBG pH Oxyhemoglobin Sodium Potassium Chloride Carbon Dioxide BUN Creatinine Glucose POC Glucose 124 H 124 H 177 H Lactic Acid Calcium AST ALT Alkaline Phosphatase CK-MB (CK-2) CK-MB (CK-2) Rel Index Total Protein Albumin TSH Urine WBC (Auto) Salicylates 06/13/17 06/14/17 06/14/17 21:11 13:25 21:19 WBC RBC Hgb Hct MCV MCH RDW Plt Count Lymph % (Auto) Arthur % (Auto) Eos % (Auto) Arthur # Seg Neutrophils % Seg Neuts % (Manual) Lymphocytes % (Manual) Seg Neutrophils # Seg Neutrophils # Man Lymphocytes # (Manual) APTT POC ABG pH ABG pH POC ABG pCO2 POC ABG pO2 ABG pO2 ABG HCO3 ABG Base Excess ABG Hemoglobin VBG pH Oxyhemoglobin Sodium Potassium Chloride Carbon Dioxide BUN Creatinine Glucose POC Glucose 153 H 154 H 110 H Lactic Acid Calcium AST ALT Alkaline Phosphatase CK-MB (CK-2) CK-MB (CK-2) Rel Index Total Protein Albumin TSH Urine WBC (Auto) Salicylates 06/15/17 06/15/17 06/15/17 05:33 05:36 14:53 WBC RBC Hgb Hct MCV MCH RDW Plt Count Lymph % (Auto) Arthur % (Auto) Eos % (Auto) Arthur # Seg Neutrophils % Seg Neuts % (Manual) Lymphocytes % (Manual) Seg Neutrophils # Seg Neutrophils # Man Lymphocytes # (Manual) APTT POC ABG pH ABG pH POC ABG pCO2 POC ABG pO2 ABG pO2 ABG HCO3 ABG Base Excess ABG Hemoglobin VBG pH Oxyhemoglobin Sodium Potassium Chloride Carbon Dioxide BUN Creatinine Glucose POC Glucose 44 L 45 L 109 H Lactic Acid Calcium AST ALT Alkaline Phosphatase CK-MB (CK-2) CK-MB (CK-2) Rel Index Total Protein Albumin TSH Urine WBC (Auto) Salicylates 06/15/17 06/16/17 06/17/17 21:33 13:33 23:37 WBC RBC Hgb Hct MCV MCH RDW Plt Count Lymph % (Auto) Arthur % (Auto) Eos % (Auto) Arthur # Seg Neutrophils % Seg Neuts % (Manual) Lymphocytes % (Manual) Seg Neutrophils # Seg Neutrophils # Man Lymphocytes # (Manual) APTT POC ABG pH ABG pH POC ABG pCO2 POC ABG pO2 ABG pO2 ABG HCO3 ABG Base Excess ABG Hemoglobin VBG pH Oxyhemoglobin Sodium Potassium Chloride Carbon Dioxide BUN Creatinine Glucose POC Glucose 156 H 153 H < 40 L Lactic Acid Calcium AST ALT Alkaline Phosphatase CK-MB (CK-2) CK-MB (CK-2) Rel Index Total Protein Albumin TSH Urine WBC (Auto) Salicylates 06/18/17 06/18/17 06/18/17 00:05 00:38 06:36 WBC RBC Hgb Hct MCV MCH RDW Plt Count Lymph % (Auto) Arthur % (Auto) Eos % (Auto) Arthur # Seg Neutrophils % Seg Neuts % (Manual) Lymphocytes % (Manual) Seg Neutrophils # Seg Neutrophils # Man Lymphocytes # (Manual) APTT POC ABG pH ABG pH POC ABG pCO2 POC ABG pO2 ABG pO2 ABG HCO3 ABG Base Excess ABG Hemoglobin VBG pH Oxyhemoglobin Sodium Potassium Chloride Carbon Dioxide BUN Creatinine Glucose POC Glucose 55 L 142 H 189 H Lactic Acid Calcium AST ALT Alkaline Phosphatase CK-MB (CK-2) CK-MB (CK-2) Rel Index Total Protein Albumin TSH Urine WBC (Auto) Salicylates 06/18/17 06/18/17 06/19/17 14:14 21:06 13:39 WBC RBC Hgb Hct MCV MCH RDW Plt Count Lymph % (Auto) Arthur % (Auto) Eos % (Auto) Arthur # Seg Neutrophils % Seg Neuts % (Manual) Lymphocytes % (Manual) Seg Neutrophils # Seg Neutrophils # Man Lymphocytes # (Manual) APTT POC ABG pH ABG pH POC ABG pCO2 POC ABG pO2 ABG pO2 ABG HCO3 ABG Base Excess ABG Hemoglobin VBG pH Oxyhemoglobin Sodium Potassium Chloride Carbon Dioxide BUN Creatinine Glucose POC Glucose 63 L 203 H 138 H Lactic Acid Calcium AST ALT Alkaline Phosphatase CK-MB (CK-2) CK-MB (CK-2) Rel Index Total Protein Albumin TSH Urine WBC (Auto) Salicylates 06/19/17 06/20/17 21:33 05:31 WBC RBC Hgb Hct MCV MCH RDW Plt Count Lymph % (Auto) Arthur % (Auto) Eos % (Auto) Arthur # Seg Neutrophils % Seg Neuts % (Manual) Lymphocytes % (Manual) Seg Neutrophils # Seg Neutrophils # Man Lymphocytes # (Manual) APTT POC ABG pH ABG pH POC ABG pCO2 POC ABG pO2 ABG pO2 ABG HCO3 ABG Base Excess ABG Hemoglobin VBG pH Oxyhemoglobin Sodium Potassium Chloride Carbon Dioxide BUN Creatinine Glucose POC Glucose 125 H 146 H Lactic Acid Calcium AST ALT Alkaline Phosphatase CK-MB (CK-2) CK-MB (CK-2) Rel Index Total Protein Albumin TSH Urine WBC (Auto) Salicylates
--- NOTE | 2017-06-20 10:19 | Progress Note ---
Assessment and Plan Assessment and plan: Hypoglycemic brain injury. Patient was found hypoglycemic. He is now in coma, vegetative state, Unresponsive Persistent vegetative state. Supportive care Metabolic encephalopathy due to hypoglycemia Hypoglycemia/hypothermia, resolved Acute respiratory failure. on ventilator. Hyponatremia. Now resolved. Hypothyroidism Diabetes mellitus type 2. Check fingerstick glucose q 6h. Continue Levemir subcut daily Hypertension. BP stable Leukocytosis due to UTI. UTI with ESBL. Disposition. Comfort care, no escalation of care; Poor prognosis Unable to locate family. Guardianship has been obtained but no authority to withdraw care. Continue supportive care. History Interval history: no new issues overnight 51 YO Male with CKD,HTN, DM presents to ED for evaluation. Pt unable to provide history. Pt history taken from ED staff, and medical records. Pt found down and unresponsive by his neighbor, who subsequently called EMS. Upon arrival, patient found unresponsive on the floor with a serum glucose of 21, and covered with ants with insulin syringes around him and a bottle of atenolol which still had many pills remaining, patient has a known history of alcohol abuse and delirium tremens. The patient was administered D5 approximate 500 mls during transport without change in mental status/level of consciousness. Pt seen and evaluated in ED was was found to be unable to protect his airway. Pt intubated and placed on vent support. Pt found to have evidence of hypothyroidism. He was started on Synthroid. He has since been in the ICU. The patient continued to deteriorate. He is in this grade 4 coma, brain imaging does not show any reversible cause. The patient remains in a persistent vegetative states. Sepsis has been ruled out. early childhood services coordinator try to locate family, even spoke to the family who he lives with. They themselves were unaware of any family members. After ethics committee meeting on the patient, the decision was made to make him DO NOT RESUSCITATE and to transfer him to hospice. Guardianship has been obtained but no authority to withdraw care. Continue supportative care. No new clinical change Hospitalist Physical - Constitutional Vitals: Temp Pulse Resp BP Pulse Ox 100.2 F H 91 H 19 86/53 95 06/20/17 06:00 06/20/17 08:00 06/20/17 06:00 06/20/17 08:00 06/20/17 08:00 General appearance: Present: no acute distress, other (Patient intubated) - EENT Eyes: Present: PERRL, EOM intact ENT: hearing intact, clear oral mucosa, dentition normal - Neck Neck: Present: supple, normal ROM - Respiratory Respiratory effort: normal Respiratory: bilateral: CTA - Cardiovascular Rhythm: regular Heart Sounds: Present: S1 & S2. Absent: gallop, rub - Extremities Extremities: no ischemia, No edema, Full ROM - Abdominal General gastrointestinal: soft, non-tender, non-distended, normal bowel sounds - Integumentary Integumentary: Present: clear, warm, dry - Neurologic Neurologic: CNII-XII intact, moves all extremities Results - Labs CBC & Chem 7: 04/28/17 05:10 04/28/17 05:10 Labs: Laboratory Last Values WBC 9.3 K/mm3 (4.5-11.0) 04/28/17 05:10 RBC 3.48 M/mm3 (3.65-5.03) L 04/28/17 05:10 Hgb 8.8 gm/dl (11.8-15.2) L 04/28/17 05:10 Hct 26.7 % (35.5-45.6) L 04/28/17 05:10 MCV 77 fl (84-94) L 04/28/17 05:10 MCH 25 pg (28-32) L 04/28/17 05:10 MCHC 33 % (32-34) 04/28/17 05:10 RDW 17.0 % (13.2-15.2) H 04/28/17 05:10 Plt Count 515 K/mm3 (140-440) H 04/28/17 05:10 Lymph % (Auto) 18.4 % (13.4-35.0) 04/28/17 05:10 [place] % (Auto) 8.4 % (0.0-7.3) H 04/28/17 05:10 Eos % (Auto) 1.8 % (0.0-4.3) 04/28/17 05:10 Baso % (Auto) 0.8 % (0.0-1.8) 04/28/17 05:10 Lymph # 1.7 K/mm3 (1.2-5.4) 04/28/17 05:10 [place] # 0.8 K/mm3 (0.0-0.8) 04/28/17 05:10 Eos # 0.2 K/mm3 (0.0-0.4) 04/28/17 05:10 Baso # 0.1 K/mm3 (0.0-0.1) 04/28/17 05:10 Add Manual Diff Complete 01/10/17 04:30 Total Counted 100 01/10/17 04:30 Seg Neutrophils % 70.6 % (40.0-70.0) H 04/28/17 05:10 Seg Neuts % (Manual) 88.0 % (40.0-70.0) H 01/10/17 04:30 Band Neutrophils % 7.0 % 01/10/17 04:30 Lymphocytes % (Manual) 4.0 % (13.4-35.0) L 01/10/17 04:30 Reactive Lymphs % (Man) 0 % 01/10/17 04:30 Monocytes % (Manual) 1.0 % (0.0-7.3) 01/10/17 04:30 Eosinophils % (Manual) 0 % (0.0-4.3) 01/10/17 04:30 Basophils % (Manual) 0 % (0.0-1.8) 01/10/17 04:30 Metamyelocytes % 0 % 01/10/17 04:30 Myelocytes % 0 % 01/10/17 04:30 Promyelocytes % 0 % 01/10/17 04:30 Blast Cells % 0 % 01/10/17 04:30 Nucleated RBC % Not Reportable 01/10/17 04:30 Seg Neutrophils # 6.6 K/mm3 (1.8-7.7) 04/28/17 05:10 Seg Neutrophils # Man 21.2 K/mm3 (1.8-7.7) H 01/10/17 04:30 Band Neutrophils # 1.7 K/mm3 01/10/17 04:30 Lymphocytes # (Manual) 1.0 K/mm3 (1.2-5.4) L 01/10/17 04:30 Abs React Lymphs (Man) 0.0 K/mm3 01/10/17 04:30 Monocytes # (Manual) 0.2 K/mm3 (0.0-0.8) 01/10/17 04:30 Eosinophils # (Manual) 0.0 K/mm3 (0.0-0.4) 01/10/17 04:30 Basophils # (Manual) 0.0 K/mm3 (0.0-0.1) 01/10/17 04:30 Metamyelocytes # 0.0 K/mm3 01/10/17 04:30 Myelocytes # 0.0 K/mm3 01/10/17 04:30 Promyelocytes # 0.0 K/mm3 01/10/17 04:30 Blast Cells # 0.0 K/mm3 01/10/17 04:30 WBC Morphology Not Reportable 01/10/17 04:30 Hypersegmented Neuts Not Reportable 01/10/17 04:30 Hyposegmented Neuts Not Reportable 01/10/17 04:30 Hypogranular Neuts Not Reportable 01/10/17 04:30 Smudge Cells Not Reportable 01/10/17 04:30 Toxic Granulation Not Reportable 01/10/17 04:30 Toxic Vacuolation Not Reportable 01/10/17 04:30 Dohle Bodies Not Reportable 01/10/17 04:30 Pelger-Huet Anomaly Not Reportable 01/10/17 04:30 [place] Rods Not Reportable 01/10/17 04:30 Platelet Estimate Consistent w auto 01/10/17 04:30 Clumped Platelets Not Reportable 01/10/17 04:30 Plt Clumps, EDTA Not Reportable 01/10/17 04:30 Large Platelets Not Reportable 01/10/17 04:30 Giant Platelets Not Reportable 01/10/17 04:30 Platelet Satelliting Not Reportable 01/10/17 04:30 Plt Morphology Comment Not Reportable 01/10/17 04:30 RBC Morphology Not Reportable 01/10/17 04:30 Dimorphic RBCs Not Reportable 01/10/17 04:30 Polychromasia Not Reportable 01/10/17 04:30 Hypochromasia 1+ 01/10/17 04:30 Poikilocytosis Not Reportable 01/10/17 04:30 Anisocytosis Not Reportable 01/10/17 04:30 Microcytosis Not Reportable 01/10/17 04:30 Macrocytosis Not Reportable 01/10/17 04:30 Spherocytes Not Reportable 01/10/17 04:30 Pappenheimer Bodies Not Reportable 01/10/17 04:30 Sickle Cells Not Reportable 01/10/17 04:30 Target Cells Not Reportable 01/10/17 04:30 Tear Drop Cells Not Reportable 01/10/17 04:30 Ovalocytes Not Reportable 01/10/17 04:30 Helmet Cells Not Reportable 01/10/17 04:30 [place] Bodies Not Reportable 01/10/17 04:30 [place] Rings Not Reportable 01/10/17 04:30 Jessica Cells Not Reportable 01/10/17 04:30 Bite Cells Not Reportable 01/10/17 04:30 Crenated Cell Not Reportable 01/10/17 04:30 Elliptocytes Not Reportable 01/10/17 04:30 Acanthocytes (Spur) Not Reportable 01/10/17 04:30 Rouleaux Not Reportable 01/10/17 04:30 Hemoglobin C Crystals Not Reportable 01/10/17 04:30 Schistocytes Not Reportable 01/10/17 04:30 Malaria parasites Not Reportable 01/10/17 04:30 Kyle Bodies Not Reportable 01/10/17 04:30 Hem Pathologist Commnt No 01/10/17 04:30 PT 14.1 Sec. (12.2-14.9) 01/17/17 04:10 INR 1.04 (0.87-1.13) 01/17/17 04:10 APTT 36.6 Sec. (24.2-36.6) 01/17/17 04:10 POC ABG pH 7.442 (7.35-7.45) 01/31/17 18:55 ABG pH 7.420 pH Units (7.350-7.450) 01/17/17 04:35 POC ABG pCO2 32.8 (35-45) L 01/31/17 18:55 ABG pCO2 34.5 mm Hg 01/17/17 04:35 POC ABG pO2 82 (80-105) 01/31/17 18:55 ABG pO2 160.3 mm Hg (80.0-90.0) H 01/17/17 04:35 POC ABG HCO3 22.4 01/31/17 18:55 ABG HCO3 21.9 mmol/L (20.0-26.0) 01/17/17 04:35 POC ABG Total CO2 23 01/31/17 18:55 POC ABG O2 Sat 97 01/31/17 18:55 ABG O2 Saturation 99.0 % (95.0-99.0) 01/17/17 04:35 ABG O2 Content 11.1 (0.0-44) 01/17/17 04:35 POC ABG Base Excess -2 01/31/17 18:55 ABG Base Excess -2.3 mmol/L (-2.0-3.0) L 01/17/17 04:35 ABG Hemoglobin 7.9 gm/dl (14.0-18.0) L 01/17/17 04:35 ABG Carboxyhemoglobin 1.5 % (0.0-5.0) 01/17/17 04:35 ABG Methemoglobin 0.5 % (0.0-1.5) 01/17/17 04:35 VBG pH 7.284 (7.320-7.420) L 01/09/17 10:16 Oxyhemoglobin 97.1 % (95.0-99.0) 01/17/17 04:35 FiO2 25 % 01/31/17 18:55 Sodium 136 mmol/L (137-145) L 04/28/17 05:10 Potassium 4.5 mmol/L (3.6-5.0) 04/28/17 05:10 Chloride 95.2 mmol/L (98-107) L 04/28/17 05:10 Carbon Dioxide 27 mmol/L (22-30) 04/28/17 05:10 Anion Gap 18 mmol/L 04/28/17 05:10 BUN 42 mg/dL (9-20) H 04/28/17 05:10 Creatinine 0.9 mg/dL (0.8-1.5) 04/28/17 05:10 Estimated GFR > 60 ml/min 04/28/17 05:10 BUN/Creatinine Ratio 47 % 04/28/17 05:10 Glucose 63 mg/dL (75-100) L 04/28/17 05:10 POC Glucose 146 (70-105) H 06/20/17 05:31 Lactic Acid 0.80 mmol/L (0.7-2.0) 01/30/17 11:49 Calcium 9.1 mg/dL (8.4-10.2) 04/28/17 05:10 Phosphorus 3.10 mg/dL (2.5-4.5) 03/29/17 04:32 Magnesium 1.90 mg/dL (1.7-2.3) 03/29/17 04:32 Total Bilirubin 0.50 mg/dL (0.1-1.2) 04/28/17 05:10 AST 45 units/L (5-40) H 04/28/17 05:10 ALT 42 units/L (7-56) 04/28/17 05:10 Alkaline Phosphatase 271 units/L (35-129) H 04/28/17 05:10 Ammonia 35.0 umol/L (25-60) 01/09/17 10:16 Total Creatine Kinase 135 units/L (55-170) 01/09/17 10:16 CK-MB (CK-2) 7.1 ng/mL (0.0-4.0) H 01/09/17 10:16 CK-MB (CK-2) Rel Index 5.2 (0-4) H 01/09/17 10:16 Troponin T < 0.010 ng/mL (0.00-0.029) 01/09/17 10:16 NT-Pro-B Natriuret Pep 602.9 pg/mL (0-900) 01/09/17 10:16 Total Protein 8.9 g/dL (6.3-8.2) H 04/28/17 05:10 Albumin 2.5 g/dL (3.9-5) L 04/28/17 05:10 Albumin/Globulin Ratio 0.4 % 04/28/17 05:10 TSH 52.800 mlU/mL (0.270-4.200) H 01/09/17 10:16 Free T4 0.78 ng/dL (0.76-1.46) 01/09/17 10:16 Total Cortisol 54.8 mcg/dL () 01/09/17 16:19 Urine Color Yellow (Yellow) 01/28/17 17:52 Urine Turbidity Clear (Clear) 01/28/17 17:52 Urine pH 6.0 (5.0-7.0) 01/28/17 17:52 Ur Specific [place] 1.016 (1.003-1.030) 01/28/17 17:52 Urine Protein 100 mg/dl mg/dL (Negative) 01/28/17 17:52 Urine Glucose (UA) >=500 mg/dL (Negative) 01/28/17 17:52 Urine Ketones Neg mg/dL (Negative) 01/28/17 17:52 Urine Blood Sm (Negative) 01/28/17 17:52 Urine Nitrite Neg (Negative) 01/28/17 17:52 Urine Bilirubin Neg (Negative) 01/28/17 17:52 Urine Urobilinogen < 2.0 mg/dL (<2.0) 01/28/17 17:52 Ur Leukocyte Esterase Lg (Negative) 01/28/17 17:52 Urine WBC (Auto) > 182.0 /HPF (0.0-6.0) H 01/28/17 17:52 Urine RBC (Auto) 113.0 /HPF (0.0-6.0) 01/28/17 17:52 Urine Bacteria (Auto) 2+ /HPF (Negative) 01/28/17 17:52 Urine WBC Clumps 3+ /HPF 01/28/17 17:52 Urine Mucus Few /HPF 01/14/17 14:07 Urine Yeast (Budding) 3+ /HPF 01/14/17 14:07 Salicylates < 0.3 mg/dL (2.8-20.0) L 01/09/17 10:16 Urine Opiates Screen Presumptive negative 01/09/17 10:23 Urine Methadone Screen Presumptive negative 01/09/17 10:23 Acetaminophen < 15.0 ug/mL (10.0-30.0) 01/09/17 10:16 Ur Barbiturates Screen Presumptive negative 01/09/17 10:23 Ur Phencyclidine Scrn Presumptive negative 01/09/17 10:23 Ur Amphetamines Screen Presumptive negative 01/09/17 10:23 U Benzodiazepines Scrn Presumptive negative 01/09/17 10:23 Urine Cocaine Screen Presumptive negative 01/09/17 10:23 U Marijuana (THC) Screen Presumptive negative 01/09/17 10:23 Drugs of Abuse Note Disclamer 01/09/17 10:23 Plasma/Serum Alcohol < 0.01 gm% (0-0.07) 01/09/17 10:16
[2017-06-20] MEDS: HEPARIN SUB-Q SCH ×2 (11:00→21:31)
[2017-06-20 23:38] VITALS: BP 78/44
[2017-06-21] MEDS: IMODIUM PO PRN (02:37)
--- NOTE | 2017-06-21 04:06 | Event Note ---
Date: 06/21/17 time of [id number]
== END 2017-06-21 05:00 | DRG 207 ==
LOC: ED 09:39 → CC1 12:22
PROVIDERS: ADMIT Internal Medicine; ATTEND Internal Medicine
PROC: 0BH17EZ Insertion of Endotracheal Airway into Trachea, Via Natural or Artificial Opening (ICD-10-PCS; principal; 2017-01-09)
PROC: 5A1955Z Respiratory Ventilation, Greater than 96 Consecutive Hours (ICD-10-PCS; 2017-01-09)
PROC: 4A033R1 Measurement of Arterial Saturation, Peripheral, Percutaneous Approach (ICD-10-PCS; 2017-01-09)
PROC: 05HM33Z Insertion of Infusion Device into Right Internal Jugular Vein, Percutaneous Approach (ICD-10-PCS; 2017-01-09)
PROC: B543ZZA Ultrasonography of Right Jugular Veins, Guidance (ICD-10-PCS; 2017-01-09)
PROC: 3E0234Z Introduction of Serum, Toxoid and Vaccine into Muscle, Percutaneous Approach (ICD-10-PCS; 2017-01-13)
DX: J96.01 Acute respiratory failure with hypoxia (principal); E03.5 Myxedema coma; J18.9 Pneumonia, unspecified organism; G93.41 Metabolic encephalopathy; E87.1 Hypo-osmolality and hyponatremia; R65.10 Systemic inflammatory response syndrome (SIRS) of non-infectious origin without acute organ dysfunction; N10 Acute pyelonephritis; Z99.11 Dependence on respirator [ventilator] status; E11.649 Type 2 diabetes mellitus with hypoglycemia without coma; E11.22 Type 2 diabetes mellitus with diabetic chronic kidney disease; I12.9 Hypertensive chronic kidney disease with stage 1 through stage 4 chronic kidney disease, or unspecified chronic kidney disease; N18.9 Chronic kidney disease, unspecified; E03.9 Hypothyroidism, unspecified; Z66 Do not resuscitate; B96.20 Unspecified Escherichia coli [E. coli] as the cause of diseases classified elsewhere; B96.1 Klebsiella pneumoniae [K. pneumoniae] as the cause of diseases classified elsewhere; Z16.12 Extended spectrum beta lactamase (ESBL) resistance; E11.65 Type 2 diabetes mellitus with hyperglycemia; Z16.20 Resistance to unspecified antibiotic; Z51.5 Encounter for palliative care; Z79.4 Long term (current) use of insulin; Z23 Encounter for immunization
CPT/HCPCS: 36415; 36600; 70450; 71010; 71045; 72125; 74018; 80048; 80053; 80307; 80320; 81001; 82140; 82533; 82550; 82553; 82803; 82805; 82962; 83735; 83880; 84100; 84132; 84439; 84443; 84484; 85007; 85025; 85027; 85610; 85730; 87040; 87076; 87086; 87186; 87205; 87493; 90686; 90732; 93005; 93010; 94002; 94003; 95819; G0480; J0360; J0696; J1644; J1720; J1815; J1818; J2185; J2310; J2543; J3370; J3480; J7030; J7040; J7042; J7050